=== PATIENT | male | born 1940 | race Caucasian/White ===

== ENCOUNTER 2022-10-20 08:15 | Day surgery (SDC) | payer MEDICARE, SELFPAY ==
[2022-10-20 08:46] LABS: Glucometer 118 mg/dL (74-106)
[2022-10-20 09:05] VITALS: BP 109/70; PULSE 71; TEMP 36.7; O2SAT 95
[2022-10-20 09:22] VITALS: BP 119/57; PULSE 54; RESP 20; O2SAT 94
[2022-10-20] MEDS: BUPIVACAINE HCL 0.25% PF 25 MG/10 ML VIAL INJ (09:24)
[2022-10-20 09:26] VITALS: BP 114/59; PULSE 73; RESP 20; O2SAT 93
--- NOTE | 2022-10-20 11:39 | W.PM.PROCNOT ---
Date of procedure: 10/20/22 Procedure: Left Lumbar 2, 3 & 4, 5 medial branch block Preop diagnosis includes pain secondary to lumbar spondylosis, Postop diagnosis same Under fluoroscopic guidance Solution injected: 2milliliters Marcaine 0.25% Anesthesia :none Immediate complications none Time out process compliant After informed consent obtained from the patient placed in the Prone proposition . area was prepped and draped in a sterile fashion using betadine .25 gauge spinal needle inserted over each of the above mentioned target areas . [employer] were directed towards the target under fluoroscopic guidance . after encountering each of the targets , no indication of intravascular intraneuronal or intrathecal needle tip placement. Then 0 .5 to 1 Milliliter was injected at each level. [employer] removed postoperatively. patient transferred to recovery in stable condition to be discharged home after meeting criteria Anesthesia: Local Surgeon: Aster Saleem Condition: stable Disposition: other (home)
== END 2022-10-20 09:30 | disposition home or self-care (01) ==
PROVIDERS: PCP Family Medicine; Visit Provider Anesthesiology Pain Medicine
DX: M47.816 Spondylosis without myelopathy or radiculopathy, lumbar region (principal)
CPT/HCPCS: 36415; 64493; 64494; 82948

== ENCOUNTER 2022-11-02 14:10 | Outpatient (OUT) | payer MEDICARE, SELFPAY ==
--- NOTE | 2022-11-02 14:15 | XR_ITS ---
[address] [address] Patient Name: JEREMIE GROSS MRN: [id number] date: 1940 Sex: M Assigned Patient Location: [facility] Current Patient Location: [facility] Accession/Order Number: [id number] Exam Date: 11/02/2022 14:30 Report Date: 11/03/2022 07:53 At the request of: SABINO COOPER Procedure: XR abdomen 1V EXAMINATION: XR abdomen 1V HISTORY: Abdomen pain COMPARISON: No relevant comparison available. FINDINGS: BOWEL GAS PATTERN: No abnormal dilation or deviation. CALCIFICATIONS: None significant. OTHER: Surgical clips within right upper quadrant and left pelvis. No abnormal gaseous collections. IMPRESSION: 1. No bowel obstruction, ileus, or suspicious findings. 2. Moderate stool burden. Electronically authenticated by: CLARISSA GARCIA Date: 11/03/2022 07:53
== END 2022-11-02 14:11 ==
LOC: RAD 14:12
PROVIDERS: PCP Family Medicine; Visit Provider Family Medicine
DX: R10.9 Unspecified abdominal pain (principal)
CPT/HCPCS: 74018

== ENCOUNTER 2022-11-12 09:53 | Outpatient (OUT) | payer MEDICARE, SELFPAY ==
--- NOTE | 2022-11-12 10:15 | PM.CN ---
Consult Note: HPI Data of Consult Patient: known to practice within the last 3 years Consult date: 11/12/22 Requesting Physician: MANDEEP MENARD NP Primary Care Provider: SABINO COOPER Consult Narrative Narrative: Patient is here for f/u of low back pain. Pain 05/26 today.. He had a second lumbar MBB left L2, 3, 4, 5 done on 10/20/22 . He received 90% relief of pain with increased fx for several hours after procedure. No new sensorimotor sx or bowel or bladder issues. Medication regimen is controlling pain and assisting patient with ability to perform ADLs. He would like to proceed with RFA of same area. TEREZA 20 cc:: CC: MANDEEP MENARD NP Review of Systems ROS Status of ROS 10 or more systems reviewed and unremarkable except as noted in history and below Musculoskeletal Reports: back pain PFSH PFSH Medical History Surgical History Social History Smoking status: Former smoker Meds Home Medications and Allergies Home Medications Medication Instructions Recorded Confirmed Type [place]-3 10/14/22 History amlodipine 5 mg tablet 5 mg PO QDAY 10/14/22 10/20/22 History aspirin 81 mg tablet,delayed 81 mg PO QDAY 10/14/22 10/20/22 History release (Adult Low Dose Aspirin) butalbital 50 mg-acetaminophen 300 1 cap PO Q4H PRN pain 10/14/22 10/20/22 History mg-caffeine 40 mg-codeine 30 mg cap clopidogrel 75 mg tablet (Plavix) 75 mg PO QDAY 10/14/22 10/20/22 History diphenhydramine 25 1 tab PO ONCE 10/14/22 10/20/22 History mg-acetaminophen 500 mg tablet (Tylenol PM Extra Strength) dorzolamide (PF) 2 % (PF) eye drops 1 drp ophthalmic (eye) TID 10/14/22 10/20/22 History fluticasone propionate 50 1 spray intranasal QDAY PRN nasal 10/14/22 10/20/22 History mcg/actuation nasal congestion spray,suspension (24 Hour Allergy Relief) furosemide 20 mg tablet (Lasix) 20 mg PO QDAY 10/14/22 10/20/22 History irbesartan 300 mg tablet (Avapro) 300 mg PO QDAY 10/14/22 10/20/22 History isosorbide mononitrate 30 mg PO BID 10/14/22 10/20/22 History latanoprost 0.005 % eye drops 1 drp ophthalmic (eye) QDAY 10/14/22 10/20/22 History loperamide 2 mg capsule 2 mg PO Q2H PRN loose stool 10/14/22 10/20/22 History (Anti-Diarrheal (loperamide)) magnesium glycinate-mag oxide See Rx Instructions .Route .COMPLEX 10/14/22 10/20/22 History metformin 500 mg tablet 500 mg PO BID 10/14/22 10/20/22 History multivitamin (Daily Multi-Vitamin 1 tab PO QDAY 10/14/22 10/20/22 History tablet) omeprazole 40 mg capsule,delayed 40 mg PO QDAY 10/14/22 10/20/22 History release rosuvastatin 10 mg tablet (Crestor) 10 mg PO QDAY 10/14/22 10/20/22 History sotalol 40 mg PO BID 10/14/22 10/20/22 History tizanidine 4 mg tablet 4 mg PO ONCE 10/14/22 10/20/22 History Allergies Allergy/AdvReac Type Severity Reaction Status Date / Time adhesive Allergy Mild Verified 10/14/22 15:06 niacin Allergy Mild Verified 10/14/22 15:06 [From Niaspan Extended-Release] Exam Constitutional Documenting provider has reviewed patient's vital signs: yes Common normals: no apparent distress, average body habitus, oriented x3, healthy appearing, alert and well nourished General appearance: cooperative, comfortable and well developed Orientation/consciousness: Yes awake, Yes oriented to person, Yes oriented to place and Yes oriented to time [place] Common normals: normocephalic and moist oral mucous membranes Respiratory Common normals: normal respiratory effort, no retractions and no use of accessory muscles Effort & inspection: able to speak in complete sentences and symmetric chest movement Back & Pelvis Lumbar spine/lower back: normal to inspection, ROM limited, pain with ROM and straight leg raise negative bilaterally Other: facet loading slightly positive bilat lumbar area. no radicular sx Extremity Common normals: normal to inspection, full ROM, normal capillary refill and no pedal edema Other: muscle strength 5/5 bilat with intact sensation bilat LE Assessment and Plan Assessment and Plan (1) Lumbar spondylosis: (2) Muscle spasm: Plan schedule for thermal RFA left lumbar L2/3, L4/5 under fluoroscopy
== END 2022-11-12 09:54 | disposition home or self-care (01) ==
PROVIDERS: PCP Family Medicine; Visit Provider Nurse Practitioner
DX: M47.816 Spondylosis without myelopathy or radiculopathy, lumbar region (principal); M62.838 Other muscle spasm
CPT/HCPCS: G0463

== ENCOUNTER 2022-11-25 09:27 | Outpatient (OUT) | payer MEDICARE, SELFPAY ==
[2022-11-25 10:01] LABS: Basophils Absolute Auto 0.1 10^3/uL (0.0-0.1); Basophils Percent Auto 0.9 % (0.2-2.0); Eosinophils Absolute Auto 0.3 10^3/uL (0.0-0.7); Eosinophils Percent Auto 3.3 % (0.9-7.0); Estimated Average Glucose 134 mg/dL; Glycohemoglobin A1C 6.3 % (4.5-6.2); Hematocrit 42.5 % (42.0-54.0); Hemoglobin 13.6 g/dL (14.0-18.0); Immature Granulocytes Abs Auto 0.11 10^3/uL (0.00-0.03); Immature Granulocytes Pct Auto 1.2 % (0.0-0.5); Lymphocytes Absolute Auto 2.4 10^3/uL (1.2-3.8); Mean Corpuscular Hemoglobin 30.6 pg (25.9-34.0); Mean Corpuscular Volume 95.5 fL (80.0-94.0); Mean Platelet Volume 10.7 fL (9.5-13.5); Monocytes Absolute Auto 0.7 10^3/uL (0.3-0.8); Monocytes Percent Auto 8.3 % (1.7-12.0); Neutrophils Absolute Auto 5.2 10^3/uL (1.4-6.5); Neutrophils Percent Auto 59.3 % (43.0-75.0); Platelet Count 219 10^3/uL (150-450); Red Blood Count 4.45 10^6/uL (4.70-6.10); Red Cell Distribution Width 14.1 % (11.0-15.0); White Blood Count 8.8 10^3/uL (4.0-11.0)
[2022-11-25 10:12] LABS: Alanine Aminotransferase 24 U/L (16-63); Albumin Globulin Ratio 1.1; Albumin Level 3.8 g/dL (3.4-5.0); Alkaline Phosphatase 81 U/L (46-116); Anion Gap 10.4; Aspartate Amino Transferase 15 U/L (15-37); BUN Creatinine Ratio 13.3; Bilirubin Total 0.3 mg/dL (0.2-1.0); Calcium 9.4 mg/dL (8.5-10.1); Carbon Dioxide 31.1 mmol/L (21.0-32.0); Chloride 105 mmol/L (98-107); Chol HDL Ratio 4.2; Cholesterol 122 mg/dL (<=200); Estimated GFR (African America >60 (>=60); Estimated GFR (Non-African Ame >60 (>=60); Globulin 3.6 g/dL; Glucose 123 mg/dL (74-106); HDL Cholesterol 29 mg/dL (40-60); Potassium 4.5 mmol/L (3.5-5.1); Sodium 142 mmol/L (136-145); Total Protein 7.4 g/dL (6.4-8.2); Triglycerides 229 mg/dL (<=150); VLDL CHOLESTEROL 45.8 mg/dL
== END 2022-11-25 09:28 | disposition home or self-care (01) ==
LOC: LAB 09:29
PROVIDERS: PCP Family Medicine; Visit Provider Family Medicine
DX: I10 Essential (primary) hypertension (principal); E11.9 Type 2 diabetes mellitus without complications; E78.5 Hyperlipidemia, unspecified
CPT/HCPCS: 36415; 80053; 80061; 83036; 85025

== ENCOUNTER 2022-12-29 09:11 | Day surgery (SDC) | payer MEDICARE, SELFPAY ==
[2022-12-29 09:24] VITALS: BP 150/74; PULSE 65; RESP 18; TEMP 37; O2SAT 97
[2022-12-29 09:25] LABS: Glucometer 105 mg/dL (74-106)
[2022-12-29] MEDS: 0.9 % SODIUM CHLORIDE 500 ML IV (09:28)
[2022-12-29] MEDS: LIDOCAINE HCL 2% 400 MG/20 ML MDV 8 ML INJ (10:35)
[2022-12-29] MEDS: BUPIVACAINE HCL 0.25% PF 25 MG/10 ML VIAL 4 ML INJ (10:35)
[2022-12-29] MEDS: METHYLPREDNISOLONE ACETATE 40 MG/ML VIAL INJ (10:36)
[2022-12-29 10:44] VITALS: BP 100/45; PULSE 61; RESP 14; TEMP 36.3; O2SAT 93
[2022-12-29 10:45] VITALS: BP 97/60; PULSE 56; RESP 16; TEMP 36.3; O2SAT 95
--- NOTE | 2022-12-29 11:06 | PC.NURSE ---
1145 Pacemaker interrogation completed, [employer] rep [place] contacted and stated transmission was successful and no problems were noted on interrogation.
--- NOTE | 2022-12-29 11:09 | W.PM.PROCNOT ---
Date of procedure: 12/29/22 Pre-op diagnosis: lumbar spondylosis Post-op diagnosis: same as pre-op Procedure: Left lumbar 2,3 &4,5 Radiofrequency ablation Under fluoroscopic guidance Rhizotomy was created using radio frequency ablation at 80?C for 90 seconds 1 to 2 lesions created at each site. Post lesioning injection of 2 mL each of 0.25% Marcaine and 2% lidocaine with Depo-Medrol 40mg. 0.5 to 1 mL injected at each site IV in place yes If Intravenous fluids: NS at KVO Anesthesia local 2% lidocaine for Anesthesia Other: MAC Timeout process compliant After informed consent obtained.Patient brought to the procedure room placed in the prone position skin overlying the area was prepped and draped in a sterile fashion using betadine. 25 gauge needle was used to create a skin wheal over each of the targeted areas utilizing 2% lidocaine. A rhizotomy needle with a 10 mm active tip was inserted over each of the anesthetized areas and directed towards each of the medial branches accomplished under fluoroscopic guidance. after encountering the same we had positive sensory stimulation, negative motor stimulation was noted. lesions were then created. Post lesioning, steroid solution was injected needles removed. Patient was transferred to recovery room in stable condition to be discharged home after meeting criteria. Anesthesia: MAC Surgeon: Aster Saleem Condition: stable
== END 2022-12-29 11:06 | disposition home or self-care (01) ==
LOC: SURGOUT 09:12
PROVIDERS: PCP Family Medicine; Visit Provider Anesthesiology Pain Medicine
DX: M47.816 Spondylosis without myelopathy or radiculopathy, lumbar region (principal)
CPT/HCPCS: 36415; 64635; 64636; 82948; J1030; J2704

== ENCOUNTER 2023-01-28 12:36 | Outpatient (OUT) | payer MEDICARE, SELFPAY ==
--- NOTE | 2023-01-28 12:40 | P.CN_ITS ---
Consult Note: HPI Data of Consult Patient: known to practice within the last 3 years Requesting Physician: Alexandra Trevizo NP Primary Care Provider: SABINO COOPER Consult Narrative Reason for consult: Procedure f/u Narrative: Jair Bennett a pleasant 82 year old male presents for evlauation of chronic low back pain. Recently underwent Left lumbar 2,3 &4,5 Radiofrequency ablation with >50-75% ongoing relief. Pain is now in right lower back and neck. Today rating pain 2-3/10 hx of cervical fusion at c3/4/5 cc:: CC: Alexandra Trevizo NP Review of Systems ROS Status of ROS 10 or more systems reviewed and unremarkable except as noted in history and below Musculoskeletal Reports: back pain and neck pain PFSH PFSH Medical History Surgical History Social History Smoking status: Former smoker Meds Home Medications and Allergies Home Medications Medication Instructions Recorded Confirmed Type [place]-3 10/14/22 History amlodipine 5 mg tablet 5 mg PO QDAY 10/14/22 12/29/22 History aspirin 81 mg tablet,delayed 81 mg PO QDAY 10/14/22 12/29/22 History release (Adult Low Dose Aspirin) butalbital 50 mg-acetaminophen 300 1 cap PO Q4H PRN pain 10/14/22 12/29/22 History mg-caffeine 40 mg-codeine 30 mg cap clopidogrel 75 mg tablet (Plavix) 75 mg PO QDAY 10/14/22 12/29/22 History diphenhydramine 25 1 tab PO ONCE 10/14/22 12/29/22 History mg-acetaminophen 500 mg tablet (Tylenol PM Extra Strength) dorzolamide (PF) 2 % (PF) eye drops 1 drp ophthalmic (eye) TID 10/14/22 12/29/22 History fluticasone propionate 50 1 spray intranasal QDAY PRN nasal 10/14/22 10/20/22 History mcg/actuation nasal congestion spray,suspension (24 Hour Allergy Relief) furosemide 20 mg tablet (Lasix) 20 mg PO QDAY 10/14/22 12/29/22 History irbesartan 300 mg tablet (Avapro) 300 mg PO QDAY 10/14/22 12/29/22 History isosorbide mononitrate 30 mg PO BID 10/14/22 12/29/22 History latanoprost 0.005 % eye drops 1 drp ophthalmic (eye) QDAY 10/14/22 12/29/22 History loperamide 2 mg capsule 2 mg PO Q2H PRN loose stool 10/14/22 12/29/22 History (Anti-Diarrheal (loperamide)) metformin 500 mg tablet 500 mg PO BID 10/14/22 12/29/22 History multivitamin (Daily Multi-Vitamin 1 tab PO QDAY 10/14/22 12/29/22 History tablet) omeprazole 40 mg capsule,delayed 40 mg PO QDAY 10/14/22 12/29/22 History release rosuvastatin 10 mg tablet (Crestor) 10 mg PO QDAY 10/14/22 12/29/22 History sotalol 40 mg PO BID 10/14/22 12/29/22 History tizanidine 4 mg tablet 4 mg PO ONCE 10/14/22 12/29/22 History Allergies Allergy/AdvReac Type Severity Reaction Status Date / Time adhesive Allergy Mild Verified 12/29/22 09:20 niacin Allergy Mild Verified 12/29/22 09:20 [From Niaspan Extended-Release] Exam Constitutional Documenting provider has reviewed patient's vital signs: yes Common normals: no apparent distress, oriented x3, healthy appearing, alert and well nourished General appearance: cooperative [facility] Common normals: normocephalic, hearing grossly normal bilaterally and moist oral mucous membranes Head and scalp: normocephalic Eye Common normals: PERRL Pupil: PERRL Neck & C-Spine General: normal visual inspection Cervical spine: cervical ROM abnormal and pain with cervical ROM Chest Common normals: inspection of chest normal Respiratory Common normals: normal respiratory effort, no retractions and no use of accessory muscles Back & Pelvis Lumbar spine/lower back: ROM limited and pain with ROM Other: predominately axial low back pain on right side over l2-l5 without radiculopathy Extremity Common normals: normal to inspection and full ROM Neuro Common normals: oriented x3, CN's II-XII intact bilaterally, moves all extremities, no focal motor deficits, no sensory deficits noted and deep tendon reflexes 2+ bilaterally Sensorium/orientation: alert Gait (neuro): antalgic Motor exam: strength 5/5 throughout and no movement abnormalities noted Psych Common normals: mental status grossly normal, thought process normal, cooperative, affect normal, speech normal and activity/motor behavior normal Speech: normal speech Thought process: normal thought process Results Additional Findings Additional findings: I have checked an [place]AR[place] report on this patient today and there are no aberrancies noted in the prescribing history.?? A drug screen was completed and reviewed within the last year, and if there has not been a drug screen completed we ordered one today to monitor higher risk, state monitored pain medication use. As part of providing excellent, safe, comprehensive care, the following was completed at our patient's visit: 1. A medication reconciliation and review to ensure accurate knowledge of current/active medications, including asking our patients to inform us about any [id number] medications or herbal remedies/nutritional supplements/alternative remedies. 2. A review to specifically ensure our patients have had annual screening for: elevated body mass index (BMI), tobacco use, screening for depression, and screening for unhealthy alcohol use. When screening is concerning, patients are provided with education and the specific recommendation to discuss the concerning health issue and treatment options with their primary care provider. Assessment and Plan Assessment and Plan (1) Lumbar spondylosis: Assessment and Plan: The patient has had over 3 months of moderate to severe low back pain with functional impairment and inadequate response to conservative care including NSAIDS (unless there are contraindication such as concurrent blood thinners), multiple oral or topical pain medications, and home exercise program/physical therapy.? Patient has completed >6 weeks of guided home exercise program and/or formal physical therapy program without relief of their symptoms.? I have reviewed the imaging of the lumbar spine and no red flags were identified.? The imaging reveals radiographic findings consistent with lumbar facet arthropathy? We discussed the risks and benefits of the procedure with the patient, and we are NOT planning on using sedation as outlined in the guidelines from Medicare unless there is a documented reason that sedation would be strongly recommended.?? ?The procedure will be completed with fluoroscopic guidance.? (2) Muscle spasm: (3) Hx of half-way use of blood thinners: (4) Failed cervical fusion: Plan start topical cream from transdermal therapeutics to neck TID-QID proceed with MBB to right L2/3 4/5 under fluoroscopy, has previously benefitted from thermal RFAs at this level continue current medication regimen tolerating well without side effects follow up 1 week after injection
== END 2023-01-28 12:37 | disposition home or self-care (01) ==
LOC: PM 12:36
PROVIDERS: PCP Family Medicine; Visit Provider Nurse Practitioner
DX: M47.816 Spondylosis without myelopathy or radiculopathy, lumbar region (principal); M62.838 Other muscle spasm
CPT/HCPCS: G0463

== ENCOUNTER 2023-02-22 16:10 | Outpatient (OUT) | payer MEDICARE, SELFPAY ==
--- NOTE | 2023-02-22 16:21 | US_ITS ---
The [address] [address] Patient Name: JEREMIE GROSS MRN: [id number] date: 1940 Sex: M Assigned Patient Location: [facility] Current Patient Location: Accession/Order Number: [id number] Exam Date: 02/22/2023 16:22 Report Date: 02/23/2023 07:49 At the request of: TERRANCE PIZARRO Procedure: US soft tissue head and neck EXAM: US soft tissue head and neck HISTORY: LUMP ON RIGHT SIDE OF NECK R22.1 COMPARISON: None. TECHNIQUE: Grayscale and color ultrasound FINDINGS: Identified in the right neck correspond to the patient's palpable mass are 3 focal heterogeneous complex well-circumscribed hypoechogenic masses without definitive internal vascularity. These lesions are round in shape and measuring 1.4 x 1.3 x 1.2 cm, 0.6 x 0.6 x 0.3 cm and 0.7 x 0.6 x 0.6 cm. US/US soft tissue head and neck IMPRESSION: 3 focal round hypoechoic heterogeneous masses correspond to the patient's palpable abnormality. These are of unknown etiology. The differential diagnosis would include atypical lymph nodes versus abscess with malignancy considered less likely in light of the patient's pain and rapid onset. Electronically authenticated by: ERWIN FALCON Date: 02/23/2023 07:49
== END 2023-02-22 16:11 | disposition home or self-care (01) ==
PROVIDERS: PCP Family Medicine; Visit Provider Nurse Practitioner
DX: R22.1 Localized swelling, mass and lump, neck (principal)
CPT/HCPCS: 76536

== ENCOUNTER 2023-04-20 09:09 | Day surgery (SDC) | payer MEDICARE, SELFPAY ==
[2023-04-20 09:56] VITALS: BP 106/64; PULSE 77; RESP 16; TEMP 36.4; O2SAT 95
[2023-04-20 10:00] LABS: Glucometer 148 mg/dL (74-106)
[2023-04-20 10:55] VITALS: BP 110/60; BP 115/57; PULSE 60; PULSE 65; RESP 18; O2SAT 93; O2SAT 95
[2023-04-20] MEDS: BUPIVACAINE HCL 0.25% PF 25 MG/10 ML VIAL 3.5 ML INJ (10:57)
--- NOTE | 2023-04-20 11:24 | P.ON_ITS ---
Date of procedure: 04/20/23 Pre-op diagnosis: Lumbar spondylosis Post-op diagnosis: same as pre-op Procedure: Right Lumbar 2/3, 4/5 medial branch block Under fluoroscopic guidance Solution injected: 2millilitersMarcaine 0.25% Anesthesia :none Immediate complications none Time out process compliant After informed consent obtained from the patient placed in the Prone proposition . area was prepped and draped in a sterile fashion using Cloraprep .25 gauge spinal needle inserted over each of the above mentioned target areas . [place] were directed towards the target under fluoroscopic guidance . after encountering each of the targets , no indication of intravascular intraneuronal or intrathecal needle tip placement. Then 0 .5 to 1 Milliliter was injected at each level. [place] removed postoperatively. patient transferred to recovery in stable condition to be discharged home after meeting criteria Anesthesia: Local Surgeon: Aster Saleem Condition: stable
== END 2023-04-20 11:03 | disposition home or self-care (01) ==
LOC: SURGOUT 09:10
PROVIDERS: PCP Family Medicine; Visit Provider Anesthesiology Pain Medicine
DX: M47.816 Spondylosis without myelopathy or radiculopathy, lumbar region (principal); Z79.84 Long term (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 of oral hypoglycemic drugs
CPT/HCPCS: 36415; 64493; 64494; 82948

== ENCOUNTER 2023-05-20 12:11 | Outpatient (OUT) | payer MEDICARE, SELFPAY ==
--- OUTSIDE RECORDS SUMMARY | 2023-05-20 12:22 | XMS_ITS | CCD ---
Author Name Unknown Address [address] [place] [address] Organization [facility] Care Team Providers Care 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 Name Role Phone ELTAHAWY, EHAB A Admitting Unavailable ELTAHAWY, EHAB A Attending Unavailable SABINO COOPER Referring Unavailable SABINO COOPER Primary Care Unavailable Param Cosme Attending Provider [phone] Sabino Cooper Primary Care Provider Param Cosme Attending Provider Sabino Cooper Primary Care Provider Leti Garcia Unavailable MG [place] Primary Care Physician [phone] KAT Westfall Attending Provider MD Mg [place] Primary Care Provider KAT Westfall Attending Provider MD Mg [place] Primary Care Provider MD Erwin Salazar Attending Provider Erwin Salazar Unavailable MARCE Hardy Attending Provider KAT Westfall Other Provider Sabino Cooper Primary Care Physician Griselda Pennington Unavailable ALANNA HARDY Admitting Unavailable ALANNA HARDY Attending Unavailable LITA, DR MG Omalley Primary Care Unavailable WEST, DR ERWIN Bell Consulting Unavailable ALANNA HARDY Consulting Unavailable LITA, DR MG Omalley Consulting Unavailable LITA, DR MG Omalley Attending Unavailable LITA, DR MG Omalley Admitting Unavailable LITA, DR MG Omalley Primary Care Unavailable LAKSHMIPATHY ., NARENDRANATH Consulting Lisset vailable LAKSHMIPATHY ., NARENDRANATH Attending Lisset vailable LAKSHMIPATHY ., NARENDRANATH Admitting Lisset vailable NADERER, DR MG Omalley Primary Care Unavailable STANFORD, DIEGO Attending Unavailable STANFORD, DIEGO Admitting Unavailable STANFORD, DIEGO Consulting Unavailable NADERESon, DR MG Omalley Primary Care Unavailable ABDON, SUSANA Attending Unavailable ABDON, SUSANA Admitting Unavailable ZIEBER, DR CLARISSA Cline Consulting Unavailable NADERER, DR MG Omalley Primary Care Unavailable ABDON, SUSANA Consulting Unavailable NADERESon, DR MG Omalley Primary Care Unavailable MARKER ., DR ODELL Consulting Unavailable MARKER ., DR ODELL Admitting Unavailable MARKER ., DR ODELL Attending Unavailable HIGHTOWER, GIN Consulting Unavailable ABDON, SUSANA Attending Unavailable ABDON, SUSANA Admitting Unavailable NADSILVIA, DR MG Omalley Primary Care Unavailable LAZO ., SONNY Consulting Unavailable NADERESon, DR MG Omalley Primary Care Unavailable CLANCY ., DR AMANDA Thapa Attending Unavailable CLANCY ., DR AMANDA Thapa Admitting Unavailable CLANCY ., DR AMANDA Thapa Admitting Unavailable LAZO ., SONNY Consulting Unavailable CLANCY ., DR AMANDA Thapa Attending Unavailable NADERESon, DR MG Omalley Primary Care Unavailable LAKSHMIPATHY ., NARENDRANATH Consulting Lisset vailable LAKSHMIPATHY ., NARENDKENDELLATH Attending Lisset vailable LAKSHMIPATHY ., NARENDRANATH Admitting Lisset vailable NADSILVIA, DR MG Omalley Primary Care Unavailable LAKSHMIPATHY ., NARENDMARIANNA Attending Lisset vailable NADERER, DR MG Omalley Primary Care Unavailable HALKER .MANDEEP Consulting Unavailable LAKSHMIPATHY ., NARENDRANATH Admitting Lisset vailable LAKSHMIPATHY ., NARENDRANATH Consulting Lisset vailable LAKSHMIPATHY ., NARENDRANATH Attending Lisset vailable LAKSHMIPATHY ., NARENDRANATH Admitting Lisset vailable SABINO COOPER Primary Care Unavailable LAZO ., SONNY Consulting Unavailable CLANCY ., DR AMANDA Thapa Admitting Unavailable CLANCY ., DR AMANDA Thapa Attending Unavailable NADERESon, DR MG Omalley Primary Care Unavailable ALANNA HARDY Admitting Unavailable HIGHLANDER, ALANNA Araiza Attending Unavailable NADERER, DR MG Omalley Primary Care Unavailable HIGHLANDER, ALANNA Araiza Attending Unavailable HIGHLELLA, ALANNA Araiza Admitting Unavailable NADERER, DR MG Omalley Primary Care Unavailable MISC, DR BECKER Attending Unavailable FAWWAD, SHAIKH Jane Consulting Unavailable MISC, DR BECKER Admitting Unavailable NADERER, DR MG Omalley Primary Care Unavailable ALSEN, DR ERWIN Bell Consulting Unavailable ELTAHAWY, DR CAO Admitting Unavailable ELTAHAWY, DR CAO Attending Unavailable NADERER, DR MG Omalley Primary Care Unavailable ELTAHAWY, DR CAO Consulting Unavailable REINECK, DR EDY Da Silva Admitting Unavailabl e NADERER, DR GM mOalley Primary Care Unavailable REINECK, DR EDY Da Silva Consulting Unavailabl e REINECK, DR EDY Da Silva Attending Unavailabl e NEFCY, ALANNA Consulting Unavailable BRITTONIFEOMA Admitting Unavailable NADERER, DR MG Omalley Primary Care Unavailable BRITTONIFEOMA ANNE Attending Unavailable HIGHLANDER, ALANNA Araiza Attending Unavailable HIGHLELLA, ALANNA Araiza Admitting Unavailable NADERER, DR MG Omalley Primary Care Unavailable Boy, DAISHA Gisele Attending Provider MD Sabino Cooper Primary Care Provider Brunson, Gisele Unavailable MD Erwin Salazar Attending Provider MD Sabino Cooper Primary Care Provider [phone] MD Inez Henderson Attending Provider Esme Brunson NP Gisele Attending Provider FABIO Ruby Attending Provider [phone] Erwin Salazar Admitting Unavailable Erwin Salazar Attending Unavailable Mg [place] Primary Care Unavailable Missy Westfall Consulting Unavailable Alanna Hardy Admitting Unavailable HighlAlanna richardson Attending Unavailable Mg [place] Primary Care Unavailable Lowe, Missy Admitting Unavailable Lowe, Missy Attending Unavailable Lita, Mg Primary Care Unavailable Sabino Cooper Primary Care Unavailable Brunson, Gisele Admitting Unavailable Brunson, Gisele Attending Unavailable Sabino Cooper Primary Care Unavailable Erwin Salazar Admitting Unavailable Erwin Salazar Attending Unavailable Inez Henderson Admitting Unavailable Inez Henderson Attending Unavailable Sabino Cooper Primary Care Unavailable Gisele Brunson Admitting Unavailable Gisele Brunson Attending Unavailable Sabino Cooper Primary Care Unavailable Sabino Cooper Primary Care Unavailable Flori, Anjali Ifeoma Admitting Unavailable Flori, Anjali Ifeoma Attending Unavailable Missy Westfall Admitting Unavailable Missy Westfall Attending Unavailable Mg [place] Primary Care Unavailable Flori AIRWAY CONTROLLER, Anjali Unavailable JOSE R ALEXANDER Attending Unavailable DANIEL PATEL Referring Unavailable MARGARET ARELLANO Attending Unavailable DANIEL PATEL Referring Unavailable MD Sabino Cooper Attending Unavailable MD Sabino Cooper Attending Unavailable MD Sabino Cooper Primary Care Unavailable Dequan GALICIA Attending Unavailable Flori, Anjali A Attending Unavailable Flori, Anjali A Attending Unavailable SRAVANI Roque Attending Unavailable MD Sabino Cooper Attending Unavailable MD Sabino Cooper Attending Unavailable Gordy Powers Admitting Unavailable Gordy Powers Attending Unavailable Gordy Powers Referring Unavailable MD Sabino Cooper Attending Unavailable MD Sabino Cooper Attending Unavailable MD Sabino Cooper Attending Unavailable Flori, Anjali A Referring Unavailable Flori, Anjali A Admitting Unavailable Flori, Anjali A Attending Unavailable Flori, Anjali A Admitting Unavailable Flori, Anjali A Attending Unavailable MD Sabino Cooper Admitting Unavailable MD Sabino Cooper Attending Unavailable Gordy Sánchez Attending Unavailable Dequan GALICIA Admitting Unavailable Dequan GALICIA Attending Unavailable Dequan GALICIA Referring Unavailable MD Sabino Cooper Referring Unavailable Flori, Anjali A Attending Unavailable Flori, Anjali A Attending Unavailable Flori, Anjali A Attending Unavailable MD Sabino Cooper Attending Unavailable VAISHALI PRNIGLE Attending Unavailable Unavailable Unavailable Unavailable Allergies Allergy Classification Reported Allergen(s) Allergy Type Date of Onset Reaction(s) Facility (3 sources) Desonide Drug Allergy 0 [facility] Repository (1 source) Niacin Drug Allergy 0 [facility] Repository (5 sources) Adhesive agent Drug allergy rash [employer] Other (12 sources) Niacin; Translations: [niacin] Drug Allergy 9 hives, Itching (finding), Itching, Unknown [facility] [place] (9 sources) Adhesive bandage; Translations: [Adhesive Bandage] Allergy to substance Eruption of skin (disorder) [facility] [place] (4 sources) Niacin Drug Allergy hives [facility] [employer] Other (2 sources) Niaspan Starter Pack Drug allergy (disorder) 8 [facility] Repository (3 sources) Adhesive Tape-Silicones; Translations: [ADHESIVE TAPE-SILICONES] Drug Allergy [address] [facility] (1 source) Niacin; Translations: [Niaspan ER] Drug Allergy [facility] Repository Medications Current Medications Medication Drug Class(es) Dates Sig (Normalized) Sig (Original) Albuterol (Eqv-ProAir HFA) 90 mcg/inh inhalation aerosol (6 sources) Start: 11-09-2022 Albuterol (Eqv-ProAir HFA) 90 mcg/inh inhalation aerosol See Instructions, 17 gm, Refill(s) 6, USE 2 INHALATIONS BY MOUTH EVERY 6 HOURS, [facility]), 163, cm, 11/04/22 15:03:00 EDT, Height/Length Dosing, 76, kg, 11/04/22 15:03:00 EDT, Weight Dosing Start Date: 11/09/22 Status: Ordered {1 (Ascorbic Acid 7540 MG / POLYETHYLENE GLYCOL 3350 80119 MG / Potassium Chloride 1200 MG / Sodium Ascorbate 57289 MG / Sodium Chloride 3200 MG Powder for Oral Solution) / 1 (POLYETHYLENE GLYCOL 3350 800340 MG / Potassium Chloride 1000 MG / Sodium Chlori (5 sources) Osmotic Laxative, Vitamin C Start: 12-15-2022 Plenvu oral powder for reconstitution See Instructions, 1 EA, Refill(s) 0, Prior to colonoscopy., [id number], 163, cm, 12/15/22 12:03:00 EDT, Height/Length Dosing, 73.3, kg, 12/15/22 12:03:00 EDT, Weight Dosing Start Date: 12/15/22 Status: Ordered Aspir 81 (8 sources) Start: 04-24-2020 take 81 mg by mouth once daily Aspir 81 81 mg, Oral, Daily, Refills(s) 0, Prophylaxis Start Date: 04/24/20 Status: Ordered Start: 04-24-2020 take 1 mg by mouth once daily Aspir 81 mg, Oral, Daily, Refills(s) 0, Prophylaxis Start Date: 04/24/20 Status: Ordered Aspir-81 (4 sources) Aspir-81 Active azithromycin 250 mg oral tablet (3 sources) Macrolide Antimicrobial Start: 023 Azithromycin 250 MG 2 tablet on the first day, then 1 tablet daily for 4 days Orally Once a day for 5 day(s) September, Active Butalbital-Acetaminop hen (4 sources) Butalbital-Aceta minop hen Active cephalexin 250 mg oral capsule (1 source) Cephalosporin Antibacterial Start: take 1 capsule by mouth twice daily Keflex 250 mg Cap 250 mg = 1 cap(s), Oral, BID, Start 3 days before procedure, # 10 cap(s), Refills(s) 0, Pharmacy: [id number], 167, cm, 04/27/22 8:46:00 EST, Height/Length Dosing, 87.1, kg, 04/27/22 8:46:00 EST, Weight Dosing Start Date: 04/27/22 Status: Ordered cholestyramine 4 g/5 g Oral Pwdr (1 source) Start: 023 cholestyramine 4 g/5 g Oral Pwdr 1 packet(s), Oral, TID, 90 EA, Refill(s) 0, [facility] ([facility] ), 167.6, cm, 08/24/22 8:10:00 EDT, Height/Length Dosing, 83.4, kg, 08/24/22 8:10:00 EDT, Weight Dosing Start Date: 08/24/22 Status: Ordered Dicyclomine (2 sources) Anticholinergic Dicyclomine HCl Active dorzolamide (13 sources) Carbonic Anhydrase Inhibitor Start: take 1 drop(s) into the eye(s) twice daily dorzolamide ophthalmic 2% solution 1 drop(s), OPTH, BID, Refill(s) 0, each eye Start Date: 04/24/20 Status: Ordered Dorzolamide HCl 2 % Ophthalmic for 90 Active Dorzolamide HCl 2 % Ophthalmic for 90 Active Fish Oils (6 sources) Start: 11-04-2022 Shubert-3 Fish O il Oral, Daily, Refills(s) 0 Start Date: 11/04/22 Status: Ordered fluticasone 0.05 mg/inh Nasal [place] (1 source) Start: 04-24-2020 fluticasone 0. 05 mg/inh Nasal [place] Daily, Refill(s) 0 Start Date: 04/24/20 Status: Ordered gabapentin 600 mg oral tablet (15 sources) Anti-epileptic Agent Start: 03-09-2023 take 1 tablet by mouth three times daily gabapentin 600 mg Tab 600 mg, Oral, TID, # 270 EA, Refills(s) 0, Pharmacy: [facility], 163, cm, 02/25/23 13:29:00 EDT, Height/Length Dosing, 78.8, kg, 02/25/23 13:29:00 EDT, Weight Dosing Start Date: 03/09/23 Status: Ordered Start: 04-24-2020 take 1 tablet by peggy th three times daily gabapentin 600 mg Tab 600 mg, Oral, TID, # 270 EA, Refills(s) 0, Pharmacy: [facility] ([facility] ), 167.6, cm, 08/24/22 8:10:00 EDT, Height/Length Dosing, 83.4, kg, 08/24/22 8:10:00 EDT, Weight Dosing Start Date: 08/24/22 Status: Ordered Gabapentin 300 M G Oral for 90 Active Comment on above: Take 1 tablet by peggy th. latanoprost (15 sources) Prostaglandin Analog Start: 04-24-2020 latanoprost ophthalmic qPM, Refill(s) 0 Start Date: 04/24/20 Status: Ordered take 1 drop(s) into the eye(s) once daily at bedtime latanoprost (XALATAN) 0.005 % ophthalmic solution 1 Drop daily at bedtime. 0 Active Latanoprost 0.00 5 % Ophthalmic for 90 Active Comment on above: 1 Drop daily at bedt olivia. Magnesium (4 sources) Magnesium Active metFORMIN hydrochloride 500 mg oral tablet (15 sources) Biguanide Start: 04-24-2020 take 1 mg by mouth twice daily metformin 500 mg ER Tab mg tab(s), Oral, BID, Refills(s) 0, High blood sugar Start Date: 04/24/20 Status: Ordered metFORMIN HCl ER 500 MG Oral for 90 Active Comment on above: Take 500 mg by mouth . methylPREDNISolone 4 mg oral tablet (3 sources) Corticosteroid Start: 023 Medrol 4 MG as directed Orally as directed for 6 days September, Active Multivitamin preparation (4 sources) Multivitamin Act rosa Multivitamin, Therapeutic w/ Minerals (8 sources) Start: 020 Multivitamin, Therapeutic w/ Minerals Oral, Daily, Refill(s) 0, Prophylaxis Start Date: 04/24/20 Status: Ordered Shubert 3 (4 sources) Shubert 3 Active pantoprazole 20 mg delayed release oral tablet (6 sources) Proton Pump Inhibitor Start: 021 take 1 mg by mouth once daily Pantoprazole [address] Tab mg tab(s), Oral, Daily, Refills(s) 0 Start Date: 10/31/20 Status: Ordered Pantoprazole Sod ium Not-Taking Pantoprazole Sod ium Active Psyllium (2 sources) Start: 03-10-2023 Metamucil Refills(s) 0 Start Date: 03/10/23 Status: Ordered tiZANidine 4 mg oral tablet (14 sources) Central alpha-2 Adrenergic Agonist Start: 02-21-2021 take 1 tablet by mouth once daily tiZANidine 4 mg Tab 4 mg = 1 tab(s), Oral, Daily, Refills(s) 0 Start Date: 02/21/21 Status: Ordered tiZANidine HCl ( ZANAFLEX) 4 mg capsule Take 4 mg by mouth. 0 Active tiZANidine HCl A ctive Comment on above: Take 4 mg by mouth. traZODone hydrochloride 50 mg oral tablet (1 source) Serotonin Reuptake Inhibitor Start: 1 take 1 mg by mouth once daily at bedtime traZODONE 50 mg Tab mg tab(s), Oral, Once a day (at bedtime), Refills(s) 0 Start Date: 10/31/20 Status: Ordered Tylenol PM Extra Strength (4 sources) Tylenol PM Extra Strength Active Completed/Discontinued Medications Medication Drug Class(es) Dates Sig (Normalized) Sig (Original) acetaminophen 325 mg / butalbital 50 mg / caffeine 40 mg oral tablet (7 sources) Barbiturate, Central Nervous System Stimulant, Methylxanthine Start: 12-15-2022 take 1 tablet by mouth every four hours as needed acetaminophen 325 mg-caffeine 40 mg-butalbital 50 mg (FIORICET) per tablet Take 1 tablet by mouth every 4 hours as needed. 0 12/15/2022 Active Start: 12-15-2022 APAP/butalbita l/caffeine 325 mg-50 mg-40 mg Tab Refill(s) 0 Start Date: 12/15/22 Status: Ordered Comment on above: Take 1 tablet by peggy th every 4 hours as needed. amLODIPine 5 mg oral tablet (15 sources) Dihydropyridine Calcium Channel Gabo Start: 04-24-20 amLODIPine (NORVASC) 5 mg tablet Take 5 mg by mouth. 0 04/24/2020 Active Comment on above: Take 5 mg by mouth. aspirin 81 mg delayed release oral tablet (2 sources) Platelet Aggregation Inhibitor, Nonsteroidal Anti-inflammatory Drug aspirin, enteric coated (ASPIRIN, ENTERIC COATED) 81 mg EC tablet Take 81 mg by mouth. 0 Active Comment on above: Take 81 mg by mouth. clopidogrel 75 mg oral tablet (15 sources) P2Y12 Platelet Inhibitor Start: 04-24-20 clopidogrel (PLAVIX) 75 mg tablet dexamethasone 6 mg oral tablet (5 sources) Corticosteroid Start: 11-30-19 take 1 tablet by mouth every twenty-four hours dexAMETHasone 6 MG 1 tablet Orally Once a day for 5 day(s) Nov, Not-Taking Docusate (4 sources) Docusate Sodium Not-Taking Docusate Sodium Active fluticasone propionate 0.05 mg/actuat metered dose nasal spray (16 sources) Corticosteroid Start: 08-24-2022 fluticasone (F LONASE) 50 mcg/actuation nasal spray 1 [place]. 0 08/24/2022 Active Start: 08-24-2022 take 1 spray(s) nasa l route twice daily Flonase 0.05 mg/inh [place] 1 spray(s), Nasal, BID, 16 gram, Refill(s) 0, each nostril, [facility] ([facility] ), 167.6, cm, 08/24/22 8:10:00 EDT, Height/Length Dosing, 83.4, kg, 08/24/22 8:10:00 EDT, Weight Dosing Start Date: 08/24/22 Status: Ordered Start: 04-24-2020 take 50 ug by inhala tion twice daily fluticasone propionate 50 mcg, Inhalation, BID, Refills(s) 0 Start Date: 04/24/20 Status: Ordered Fluticasone Prop ionate 50 MCG/ACT Nasal for 30 Active Comment on above: 1 [place]. furosemide 20 mg oral tablet (15 sources) Loop Diuretic Start: 04-24-2020 furosemide (LASIX) 20 mg tablet Take 20 mg by mouth. 0 04/24/2020 Active Furosemide Activ e Comment on above: Take 20 mg by mouth. glimepiride 2 mg oral tablet (2 sources) Sulfonylurea Start: 01-19-2019 glimepiride (AMARYL) 2 mg tablet Take 2 mg by mouth. 0 01/19/2019 Active Comment on above: Take 2 mg by mouth. irbesartan 300 mg oral tablet (15 sources) Angiotensin 2 Receptor Gabo Start: 04-24-2020 irbesartan (AVAPRO) 300 mg tablet Take 300 mg by mouth. 0 04/24/2020 Active Comment on above: Take 300 mg by mouth . 24 hr isosorbide mononitrate 30 mg extended release oral tablet (15 sources) Nitrate Vasodilator Start: 04-24-2020 isosorbide mononitrate ER (IMDUR) 30 mg 24 hr tablet Take 30 mg by mouth. 0 08/31/2022 Active Comment on above: Take 30 mg by mouth. loperamide hydrochloride 2 mg oral tablet (15 sources) Opioid Agonist Start: 02-21-2021 loperamide HCl (IMODIUM) 2 mg tab Take 2 mg by mouth. 0 02/21/2021 Active Loperamide A-D A ctive Comment on above: Take 2 mg by mouth. omeprazole 40 mg delayed release oral capsule (14 sources) Proton Pump Inhibitor Start: 01-06-2023 omeprazole (PRILOSEC) 40 mg capsule Take 40 mg by mouth. 0 01/06/2023 Active Start: 08-24-2022 take 1 capsule by [facility] once daily omeprazole 40 mg Cap-DR 40 mg, Oral, Daily, # 90 EA, Refills(s) 0, Pharmacy: [facility] ([facility] ), 167.6, cm, 08/24/22 8:10:00 EDT, Height/Length Dosing, 83.4, kg, 08/24/22 8:10:00 EDT, Weight Dosing Start Date: 08/24/22 Status: Ordered Start: 04-27-2022 omeprazole Ora l, Daily, Refills(s) 0 Start Date: 04/27/22 Status: Ordered Omeprazole Activ e Comment on above: Take 40 mg by mouth. Prazosin (4 sources) alpha-Adrenergic Gabo Prazosi n HCl Not-Taking Prazosin HCl Act rosa rosuvastatin calcium 10 mg oral tablet (16 sources) HMG-CoA Reductase Inhibitor Start: 04-24-2020 rosuvastatin (CRESTO R) 10 mg tablet Take 10 mg by mouth. 0 11/10/2022 Active Crestor Active Comment on above: Take 10 mg by mouth. sotalol hydrochloride 80 mg oral tablet (15 sources) Antiarrhythmic Start: 04-24-2020 sotalol (BETAPACE) 80 mg tablet Take 80 mg by mouth. 0 04/24/2020 Active Start: 04-24-2020 take 0.5 tablet by [facility] twice daily sotalol 80 mg Tab 0.5 tab, Oral, BID, Refills(s) 0 Start Date: 04/24/20 Status: Ordered Comment on above: Take 80 mg by mouth. sucralfate 1000 mg oral tablet (12 sources) Aluminum Complex Start: 12-15-2022 sucralfate (CARAFATE) 1 gram tablet Take 1 g by mouth. 0 12/15/2022 Active Start: 12-15-2022 sucralfate 1 g Tab Refills(s) 0 Start Date: 12/15/22 Status: Ordered Start: 04-27-2022 sucralfate 1 g Tab gm tab(s), Oral, QIDACHS, Refills(s) 0 Start Date: 04/27/22 Status: Ordered Sucralfate Not-T aking Sucralfate Activ e Comment on above: Take 1 g by mouth. temazepam 15 mg oral capsule (5 sources) Benzodiazepine take 1 capsule by mouth every twenty-four hours Temazepam 15 MG 1 capsule at bedtime as needed Orally Once a day Not-Taking zolpidem tartrate 5 mg oral tablet (2 sources) gamma-Aminobutyric Acid-ergic Agonist zolpidem (AMBIEN) 5 mg tablet Take 5 mg by mouth. 0 Active Comment on above: Take 5 mg by mouth. zonisamide 25 mg oral capsule (5 sources) Anti-epileptic Agent Start: 3 zonisamide (ZONEGRAN) 25 mg capsule Start: 02-15-2023 take 1 capsule by [facility] twice daily zonisamide 25 mg Cap 25 mg = 1 cap(s), Oral, BID, Refills(s) 0 Start Date: 02/15/23 Status: Ordered Problems Active Problems Problem Classification Problem Date Documented Da te Episodic/Chronic Abdominal pain (20 sources) Lower abdominal pain; Translations: [Right flank pain] Onset: 3 04-25-2020 Episodic Cancer of prostate (13 sources) History of malignant neoplasm of prostate; Translations: [Personal history of malignant neoplasm of prostate] Onset: 2 03-21-2021 Episodic Conduction disorders (13 sources) Cardiac pacemaker in situ; Translations: [Presence of cardiac pacemaker] Onset: 2 04-24-2020 Chronic Coronary atherosclerosis and other heart disease (8 sources) Coronary arteriosclerosis; Translations: [Atherosclerotic heart disease of [place] coronary artery without angina pectoris] Onset: 2 Chronic Diabetes mellitus with complications (10 sources) Neuropathy due to diabetes mellitus; Translations: [Autonomic neuropathy due to type 2 diabetes mellitus] Onset: 2 04-24-2020 Chronic Diabetes mellitus without complication (9 sources) Diabetes mellitus; Translations: [Type 2 diabetes mellitus without complication] Onset: 3 04-24-2020 Chronic Disorders of lipid metabolism (12 sources) Hypercholesterolemia; Translations: [Pure hypercholesterolemia, unspecified] Onset: 2 04-24-2020 Chronic Esophageal disorders (14 sources) Gastroesophageal reflux disease with apnea; Translations: [Gastro-esophageal reflux disease without esophagitis] Onset: 3 04-24-2020 Chronic Essential hypertension (16 sources) Hypertensive disorder; Translations: [Essential hypertension] Onset: 2 04-24-2020 Chronic Gastroduodenal ulcer (except hemorrhage) (8 sources) Peptic ulcer 10-31-2020 Chronic Genitourinary symptoms and ill-defined conditions (20 sources) Incontinence; Translations: [Incontinence without sensory awareness] 04-27-2022 Chronic Glaucoma (8 sources) Glaucoma 04-24-2020 Chronic Heart valve disorders (2 sources) Nonrheumatic mitral (valve) insufficiency; Translations: [Nonrheumatic mitral (valve) insufficiency] Onset: 2 Chronic Inflammatory conditions of male genital organs (8 sources) Prostatitis 04-27-2022 Episodic Lymphadenitis (3 sources) Lymphadenopathy 02-15-2023 Episodic Neoplasms of unspecified nature or uncertain behavior (2 sources) Benign neoplasm of pancreas; Translations: [Neoplasm of unspecified behavior of digestive system] 04-02-2023 Episodic Nonspecific chest pain (12 sources) Chest wall pain; Translations: [Other chest pain] Onset: 3 02-21-2021 Episodic Nutritional deficiencies (9 sources) Vitamin D deficiency; Translations: [Vitamin D deficiency, unspecified] Onset: 2 04-24-2020 Chronic Osteoarthritis (8 sources) Osteoarthritis 04-24-2020 Chronic Other aftercare (1 source) Other roasterman (current) drug therapy; Translations: [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] Onset: 3 Episodic Other aftercare (1 source) residential (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; Translations: [MCFP CURRENT USE OF ASPIRIN] Onset: 3 Episodic Other aftercare (1 source) 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 of antithrombotics/antipl atelets; Translations: [[facility] ANTITHROMBOT/ANTIPLATL ETS] Onset: 3 Episodic Other aftercare (1 source) residential (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 of oral hypoglycemic drugs; Translations: [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 USE ORAL HYPOGLYCEMIC DX] Onset: 3 Episodic Other circulatory disease (1 source) Raynaud's syndrome without gangrene; Translations: [RAYNAUDS SYNDROME WITHOUT GANGRENE] Onset: 2 Chronic Other gastrointestinal disorders (1 source) Heartburn 10-31-2020 Episodic Other gastrointestinal disorders (8 sources) Dysphagia; Translations: [Dysphagia, unspecified] Onset: 3 12-15-2022 Episodic Other gastrointestinal disorders (5 sources) Hard stool 12-15-2022 Episodic Other gastrointestinal disorders (6 sources) Urgent desire for stool; Translations: [Fecal urgency] Onset: 3 12-15-2022 Episodic Other gastrointestinal disorders (1 source) Digestive system finding; Translations: [Other specified symptoms and signs involving the digestive system and abdomen] Onset: 3 Episodic Other gastrointestinal disorders (3 sources) Irregular bowel habits 02-25-2023 Episodic Other gastrointestinal disorders (1 source) Abnormal feces; Translations: [Other fecal abnormalities] Onset: 3 Episodic Other gastrointestinal disorders (2 sources) Loose stool 03-10-2023 Episodic Other lower respiratory disease (2 sources) Apnea, not elsewhere classified Episodic Other nervous system disorders (4 sources) Polyneuropathy associated with another disorder; Translations: [Polyneuropathy in diseases classified elsewhere] Chronic Other nervous system disorders (1 source) 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 Other nervous system disorders (1 source) Other chronic pain; Translations: [OTHER CHRONIC PAIN] Onset: 2 Chronic Other nervous system disorders (7 sources) Numbness of hand 08-24-2022 Episodic Other non-traumatic joint disorders (4 sources) Other instability, right ankle; Translations: [OTHER INSTABILITY RIGHT ANKLE] Onset: 3 Episodic Other nutritional; endocrine; and metabolic disorders (8 sources) Body mass index 30+ - obesity 02-21-2021 Chronic Other screening for suspected conditions (not mental disorders or infectious disease) (1 source) Screening for malignant neoplasm of colon done; Translations: [Encounter for screening for malignant neoplasm of colon] Onset: 3 Episodic Other skin disorders (3 sources) Mass of neck 02-15-2023 Episodic Otitis media and related conditions (3 sources) Otitis media 02-15-2023 Episodic Pancreatic disorders (not diabetes) (8 sources) Cyst of pancreas; Translations: [Cyst of pancreas] Onset: 3 Episodic Phlebitis; thrombophlebitis and thromboembolism (1 source) Personal history of other venous thrombosis and embolism; Translations: [PERS HX OTH VENOUS THROMBOSIS AND EMBO] Onset: 3 Episodic Pneumonia (except that caused by tuberculosis or sexually transmitted disease) (1 source) Pneumonia (except that caused by tuberculosis or sexually transmitted disease); Translations: [PNEUMONIA D/T CORONAVIRUS DIS 2019] Onset: 3 Residual codes; unclassified (8 sources) Sleep apnea 04-24-2020 Chronic Residual codes; unclassified (4 sources) Obstructive sleep apnea syndrome; Translations: [Obstructive sleep apnea (adult) (pediatric)] Chronic Residual codes; unclassified (4 sources) Daytime somnolence; Translations: [Other hypersomnia] Chronic Residual codes; unclassified (3 sources) Obstructive sleep apnea (adult) (pediatric) Chronic Residual codes; unclassified (1 source) Other hypersomnia Chronic Residual codes; unclassified (1 source) Sleep apnea, unspecified; Translations: [SLEEP APNEA UNSPECIFIED] Onset: 3 Chronic Residual codes; unclassified (1 source) Obstructive sleep apnea (adult)(pediatric); Translations: [Obstructive sleep apnea (adult) (pediatric)] Onset: 3 Chronic Residual codes; unclassified (1 source) Acquired absence of other genital organ(s); Translations: [ACQUIRED ABSENCE OTH GENITAL ORGANS] Onset: 3 Episodic Residual codes; unclassified (5 sources) FH: Stomach cancer 12-15-2022 Episodic Spondylosis; intervertebral disc disorders; other back problems (10 sources) Spondylosis without myelopathy or radiculopathy, lumbar region; Translations: [Other intervertebral disc degeneration, lumbar region] Onset: 2 Chronic Substance-related disorders (5 sources) Hypnotic dependence; Translations: [Sedative, hypnotic or anxiolytic dependence, 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 Unclassified (4 sources) LOW BACK PAIN, UNSPECIFIED; Translations: [LOW BACK PAIN, UNSPECIFIED] Onset: 3 Unclassified (1 source) Encounter for checking and testing of cardiac pacemaker pulse generator [battery]; Translations: [Encounter for checking and testing of cardiac pacemaker pulse generator [battery]] Onset: 3 Unclassified (1 source) Posterior tibial tendinitis, right leg; Translations: [Posterior tibial tendinitis, right leg] Onset: 3 Unclassified (3 sources) Patient encounter status 02-25-2023 Urinary tract infections (1 source) Urinary tract infectious disease 04-27-2022 Episodic Viral infection (11 sources) Disease caused by 2019-nCoV; Translations: [COVID-19] Onset: 3 Past or Other Problems Problem Classification Problem Date Documented Da te Episodic/Chronic Cardiac dysrhythmias (2 sources) Palpitations; Translations: [Palpitations] Onset: 06-11-2022 Episodic Other connective tissue disease (2 sources) Pain in left finger(s); Translations: [PAIN IN LEFT FINGERS] Onset: 11-29-2021 Resolved: 11-29-2021 Episodic Other connective tissue disease (4 sources) Pain in right foot; Translations: [PAIN IN RIGHT FOOT] Onset: 06-18-2022 Episodic Other connective tissue disease (3 sources) Pain in arm, unspecified; Translations: [PAIN IN ARM UNSPECIFIED] Onset: 04-16-2022 Episodic Other connective tissue disease (1 source) Pain in left upper arm; Translations: [PAIN IN LEFT UPPER ARM] Onset: 04-20-2022 Episodic Other connective tissue disease (1 source) Pain in right upper arm; Translations: [PAIN IN RIGHT UPPER ARM] Onset: 04-20-2022 Episodic Other gastrointestinal disorders (4 sources) Diarrhea, unspecified; Translations: [DIARRHEA UNSPECIFIED] Onset: 03-06-2022 Episodic Other nervous system disorders (1 source) Unspecified disturbances of skin sensation; Translations: [UNS DISTURBANCES OF SKIN SENSATION] Onset: 04-20-2022 Episodic Other skin disorders (4 sources) Nail dystrophy; Translations: [NAIL DYSTROPHY] Onset: 06-11-2022 Episodic Other skin disorders (1 source) Other nail disorders; Translations: [OTHER NAIL DISORDERS] Onset: 06-16-2022 Episodic Spondylosis; intervertebral disc disorders; other back problems (9 sources) Muscle spasm of back; Translations: [Radiculopathy, cervical region] Onset: 11-13-2021 Episodic Unclassified (1 source) Paroxysmal ventricular tachycardia I47.29 Unclassified (1 source) Acute cough R05.1 Unclassified (1 source) LOW BACK PAIN, UNSPECIFIED; Translations: [LOW BACK PAIN, UNSPECIFIED] Onset: 08-25-2022 Results Test Name Value Interpretation Reference Range Facil ity Operative Reporton 3 Operative Report [id number] IFF [facility] IntraOperative Documentson 1 06-22-2022 IntraOperative Documents [id number]#1.00 TIFF [facility] Reminderson 04-21-2023 Reminders - From: Letty Valdez To: Aleida Gonzalez; Jennifer Bishop; Letty Valdez; Sent: 12/15/2022 13:00:41 EDT Show up: 12/15/2022 12:59:00 EDT Subject: Ambulatory Reminder Due Date/Time: 01/15/2023 12:59:00 EDT Reminder/Recall Pt needs to schedule an EGD w/poss dilation and a Colonoscopy with Dr. Henderson once he is able to take [employer]. Pt unable to go to [facility] due to respiratory issues. He will also need to hold his Plavix 5 days prior - his medical grade shoemaker is Dr. Arellano. He has signed a consent and it is scanned into his chart already. Ordered Plenvu and I have gone over instructions with patient and sent him home with a packet. EGD performed by Dr Powers on 04/15. Referred to [facility]. Colonoscopy was not done - last scope 2017. [facility] Progress Note-Physicianon Progress Note-Physician Patient: JEREMIE BENNETT Age: 82 years Sex: Male : 1940 Associated Diagnoses: None Author: MD Matt, Anaya Salgado Postoperative Information Postoperative disposition: Postoperative disposition: To PACU. Optimetrix number: Optimetrix number [id number]. Anesthetic utilized: General. Health Status Allergies: Allergic Reactions (Selected) Severity Not Documented Adhesive Bandage- Rash. Niaspan ER- Itching. Physical Examination VS/Measurements Pain Assessment: Controlled. General: Awake, Alert, Appropriate. Respiratory: Adequate air exchange. Cardiovascular: Stable, Normal peripheral perfusion. Neurological: Normal sensory function, Normal motor function. Assessment Anesthetic outcome No anesthetic complications noted. Adequate pain relief. able to void without difficulty, able to ambulate with assist, tolerating PO intake, no N/V. Review / Management Condition: Stable. Plan Transfer/Discharge: Transfer/Discharge Discharge when meets criteria ( To home ). Normal [facility] Comment on above: Result Comment: Elec tronically Signed By: MD Matt, nAaya Salgado\.br\Date and Time Signed: 04/17/23 20:25 EST Progress Note-Physician Patient: JEREMIE BENNETT Age: 82 years Sex: Male : 1940 Associated Diagnoses: None Author: MD Matt, Anaya Salgado Preoperative Information Time patient last ate or drank:=== (npo 8 hours) Anesthesia history: Patient history: No prior anesthesia problems. Re-evaluation prior to induction: Completed, Initial evaluation reviewed. Review of Systems Respiratory: No shortness of breath. Cardiovascular: No chest pain. Hematology/Lymphatics: No bruising tendency, No bleeding tendency. Health Status Allergies: Allergic Reactions (All) Severity Not Documented Adhesive Bandage- Rash. Niaspan ER- Itching. Current medications: (Selected) Prescriptions Prescribed Albuterol (Eqv-ProAir HFA) 90 mcg/inh inhalation aerosol: See Instructions, 17 gm, Refill(s) 6, USE 2 INHALATIONS BY MOUTH EVERY 6 HOURS, [facility] ([facility]), 163, cm, 11/04/22 15:03:00 EDT, Height/Length Dosing, 76, kg, 11/04/22 15:03:00 EDT, Weight Dosing Flonase 0.05 mg/inh [place]: 1 spray(s), Nasal, BID, 16 gram, Refill(s) 0, each nostril, [facility] ([facility] ), 167.6, cm, 08/24/22 8:10:00 EDT, Height/Length Dosing, 83.4, kg, 08/24/22 8:10:00 EDT, Weight Dosing Plenvu oral powder for reconstitution: See Instructions, 1 EA, Refill(s) 0, Prior to colonoscopy., [id number], 163, cm, 12/15/22 12:03:00 EDT, Height/Length Dosing, 73.3, kg, 12/15/22 12:03:00 EDT, Weight Dosing gabapentin 600 mg Tab: 600 mg, Oral, TID, # 270 EA, Refills(s) 0, Pharmacy: [facility], 163, cm, 02/25/23 13:29:00 EDT, Height/Length Dosing, 78.8, kg, 02/25/23 13:29:00 EDT, Weight Dosing omeprazole 40 mg Cap-DR: See Instructions, TAKE 1 CAPSULE BY MOUTH DAILY, # 90 cap(s), Refills(s) 3, Pharmacy: [facility] ([facility]), 163, cm, 12/15/22 12:03:00 EDT, Height/Length Dosing, 73.3, kg, 12/15/22 12:03:00 EDT, Weight Dosing rosuvastatin 10 mg Tab: See Instructions, TAKE 1 TABLET BY MOUTH DAILY, # 90 tab(s), Refills(s) 3, Pharmacy: [facility] ([facility]), 163, cm, 11/04/22 15:03:00 EDT, Height/Length Dosing, 76, kg, 11/04/22 15:03:00 EDT, Weight Dosing Documented Medications Documented APAP/butalbital/caffein e 325 mg-50 mg-40 mg Tab: Refill(s) 0, Headache Aspir 81: 81 mg, Oral, Daily, Refills(s) 0, Prophylaxis Metamucil: Refills(s) 0, Constipation [facility] Prescription: See Instructions, one touch ultra lancets Use to test sugars once a day [facility] Prescription: See Instructions, one touch ultra test strips test sugars once a day Multivitamin, Therapeutic w/ Minerals: Oral, Daily, Refill(s) 0, Prophylaxis Shubert-3 Fish Oil: Oral, Daily, Refills(s) 0, Prophylaxis Plavix 75 mg Tab: 75 mg = 1 tab(s), Oral, Daily, Refills(s) 0, Blood Thinner amLODIPine 5 mg Tab: 5 mg = 1 tab(s), Oral, Daily, Refills(s) 0, High blood pressure dorzolamide ophthalmic 2% solution: 1 drop(s), OPTH, BID, Refill(s) 0, each eye furosemide 20 mg Tab: 20 mg = 1 tab(s), Oral, Daily, Refills(s) 0, diuretic/water pill irbesartan 300 mg Tab: 300 mg = 1 tab(s), Oral, Daily, Refills(s) 0, High blood pressure isosorbide mononitrate: 30 mg, Oral, qAM, Refills(s) 0, High blood pressure latanoprost ophthalmic: qPM, Refill(s) 0, Dry eyes loperamide 2 mg Tab: 2 mg = 1 tab(s), Oral, q4hr, Refills(s) 0, Diarrhea metformin 500 mg ER Tab: mg tab(s), Oral, BID, Refills(s) 0, High blood sugar sotalol 80 mg Tab: 0.5 tab, Oral, BID, Refills(s) 0, High blood pressure sucralfate 1 g Tab: Refills(s) 0, Control of stomach acid tiZANidine 4 mg Tab: 4 mg = 1 tab(s), Oral, Daily, Refills(s) 0, Spasm zonisamide 25 mg Cap: 25 mg = 1 cap(s), Oral, BID, Refills(s) 0 Problem list: All Problems Primary hypertension / SNOMED CT 02743252 / Confirmed Hypercholesterolemia / SNOMED CT 72043157 / Confirmed Osteoarthritis / SNOMED CT 4934209510 / Confirmed Sleep apnea / SNOMED CT 173304969 / Confirmed Vitamin D deficiency / SNOMED CT 27098990 / Confirmed GERD with apnea / SNOMED CT 4986462197 / Confirmed Diabetic autonomic neuropathy associated with type 2 diabetes mellitus / SNOMED CT 0482741942 / Confirmed Glaucoma / SNOMED CT 22488475 / Confirmed Pacemaker / SNOMED CT 7219501290 / Confirmed Type 2 diabetes mellitus without complication, without long-term current use of insulin / ICD-10-CM E11.9 / Confirmed Upper abdominal pain / SNOMED CT 576559155 / Confirmed Lower abdominal pain / SNOMED CT 75729549 / Confirmed PUD (peptic ulcer disease) / SNOMED CT 02420372 / Confirmed BMI 30.0-30.9,adult / SNOMED CT 375717133 / Confirmed Right flank pain, chronic / SNOMED CT 379477245 / Confirmed Right-sided chest wall pain / SNOMED CT 725928816 / Confirmed Personal history of prostate cancer / SNOMED CT 5392402742 / Confirmed Leaking of urine / SNOMED CT 7927074816 / Confirmed Urinary incontinence without sensory awareness / SNOMED CT 9545132698 / Confirmed Mixed incontinence / SNOMED (more content not included)... Normal [facility] Comment on above: Result Comment: Elec tronically Signed By: MD Matt, Anaya Salgado\.br\Date and Time Signed: 04/17/23 20:24 EST Consenton 04-16-2023 Consent [id number]#1.00T IFF Normal [facility] Discharge Instructionson Discharge Instructions [id number]#1.00T IFF Normal [facility] Main OR Intraoperative Recor don 04-16-2023 Main OR Intraoperative Record IntraOp Document Type FT Summary Primary Physician: Gordy Powers MD Finalized Date/Time: 04/16/23 09:59:57 Pt. Name: JEREMIE BENNETT/Sex: 1940 Male Med Rec #: [id number] Physician: Gordy Powers MD Financial #: [id number] Pt. Type: O Room/Bed: / Admit/Disch: 04/15/23 12:30:20 - 04/15/23 23:59:59 Institution: Case Times FT Entry 1 Patient Times In Room 04/15/23 13:08:00 Out Room 04/15/23 13:21:00 Procedure Times Start 04/15/23 13:12:00 Stop 04/15/23 13:18:00 Anesthesia Times Start 04/15/23 13:08:00 Stop 04/15/23 13:21:00 Last Modified By: Zohaib ESCALANTE, Sabine Tripp 04/15/23 13:21:26 General Comments: 04/16/23 Chart opened to review and send charges [facility]oth CSFA Case Attendance FT Entry 1 Entry 2 Entry 3 Case Attendee Jose FERGUSON, Daniel Javier, Minerva Cabrera MOTORCYCLE BUILDER, Negar Campbell Role Performed COMPANION CAREGIVER Staff - Other Scrub - Primary Time In 04/15/23 13:08:00 04/15/23 13:08:00 04/15/23 13:08:00 Time Out 04/15/23 13:21:00 04/15/23 13:21:00 04/15/23 13:21:00 Procedure EGD(.) EGD(.) EGD(.) Comments Dr. Gutierrez is supervising Last Modified By: Zohaib ESCALANTE, Sabine Penny RN, Sabine Pittman RN 04/15/23 13:21:27 04/15/23 13:21:27 04/15/23 13:21:27 Entry 4 Entry 5 Case Attendee Gio CASON, Gordy Penny RN, Sabine Tripp Role Performed Surgeon - Primary Environmental Health Physician - Primary Time In 04/15/23 13:08:00 04/15/23 13:08:00 Time Out 04/15/23 13:21:00 04/15/23 13:21:00 Procedure EGD(.) EGD(.) Comments Last Modified By: Zohaib ESCALANTE, Sabine Penny RN, Sabine Tripp 04/15/23 13:21:27 04/15/23 13:21:27 Perioperative Protocols FT Pre-Care Text: Implements protective measures prior to operative or invasive procedure, confirms identity before the operative or invasive procedure, verifies operative procedure, surgical site, and laterality Entry 1 Procedure(s) EGD(.) Patient Identity Birthday, ID Band Verified (select at Check, Patient least 2): Participation Consents / H and P Anesthesia Consent, Operative Site N/A Verified HandP, Surgery/Procedure Marking Verified Consent Surgical Site No Laterality Verified n/a Verified Procedure Verified Yes Correct Patient Yes Position Verified Availability Equipment, Medication Prep Dry n/a Verified (If Applicable) PreOp Antibiotic No Time Out Minerva Javier, Given Participants Daniel Garcia CRNA, Schafer CST, Gio Espino MD, Zohaib Ferrell RN, Kristin N Time Out Complete 04/15/23 13:10:00 Outcomes Met? Yes Last Modified By: Sabine Penny RN 04/15/23 13:10:59 Post-Care Text: The patient is free from signs and symptoms of injury caused by extraneous objects Allergy Information FT Pre-Care Text: Verifies allergies Entry 1 Allergies Reviewed? Yes Allergies Reviewed Self/Patient With Outcomes Met? Yes Last Modified By: Sabine Penny RN 04/15/23 13:11:25 Post-Care Text: The patient received appropriate medication(s) safely administered during the perioperative period Surgical Procedures FT Entry 1 Procedure Description Procedure EGD Modifiers . Surgeon Description EGD with antral biopsy Primary Procedure Yes Primary Surgeon Gordy Powers MD Start 04/15/23 13:12:00 Stop 04/15/23 13:18:00 Anesthesia Type General Surgical Service General Wound Class 2 - Clean-Contaminated Last Modified By: Sabine Penny RN 04/15/23 13:18:29 General Case Data FT Pre-Care Text: Classifies surgical wound, implements aseptic technique, initiates traffic control Entry 1 Case Information OR ENDO 1 FT Case Level Level 2 Wound Class 2 - Clean-Contaminated Specialty General ASA Class 3 Preop Diagnosis Abdominal pain Postop Same As Preop No Postop Diagnosis Normal Outcomes Met? Yes Last Modified By: Sabine Penny RN 04/15/23 13:21:36 Post-Care Text: The patient is free from signs and symptoms of infection Skin Assessment (Pre Procedure) FT Pre-Care Text: Implements protective measures to prevent skin/ tissue injury due to thermal or mechanical sources Evaluates for signs and symptoms of physical injury to skin and tissue Entry 1 Skin Integrity Intact, [place], Warm, and Skin Abnormality No Dry Outcomes Met? Yes Last Modified By: Sabine Penny RN 04/15/23 13:11:55 Post-Care Text: The patient is free from signs and symptoms of injury caused by extraneous objects Patient Positioning FT Pre-Care Text: Identifies physical alterations that require additional precautions for procedure-specific positioning, verifies presence of prosthetics or corrective devices, positions the patient, evaluates the patient for signs and symptoms of injury as a result of positioning Entry 1 Procedure EGD(.) Body Position Lateral, right side up Feet Uncrossed? Yes Left Arm Position Resting at Side Right Arm Position Resting at Side Left Leg Position Extended Right Leg Position Extended Positioning Device (more content not included)... Normal [facility] Postoperative Documentson Postoperative Documents [id number] IFF Normal [facility] Consent for Treatmenton 03-19 Consent for Treatment [id number] IFF Normal [facility] Discharge Instructionson Discharge Instructions JEREMIE BENNETT :1940 Visit Date:04/15/2023 Inpatient Discharge Instructions Your Care Team Admitting Physician - Gordy Powers MD Referring Physician - Gordy Powers MD Reason for Your Visit ABDOMINAL PAIN Tests Performed Pathology Tissue Exam -- Results Pending -- Please visit your patient portal for your results or contact your primary care physician. This Is Your Medications List APAP/butalbital/caffein e (APAP/butalbital/caffei ne 325 mg-50 mg-40 mg Tab) Misc Prescription ([facility] Prescription) Misc Prescription ([facility] Prescription) albuterol (Albuterol (Eqv-ProAir HFA) 90 mcg/inh inhalation aerosol) amlodipine (amLODIPine 5 mg Tab) aspirin (Aspir 81) clopidogrel (Plavix 75 mg Tab) dorzolamide ophthalmic (dorzolamide ophthalmic 2% solution) fluticasone nasal (Flonase 0.05 mg/inh [place]) furosemide (furosemide 20 mg Tab) gabapentin (gabapentin 600 mg Tab) irbesartan (irbesartan 300 mg Tab) isosorbide mononitrate latanoprost ophthalmic loperamide (loperamide 2 mg Tab) metformin (metformin 500 mg ER Tab) multivitamin with minerals (Multivitamin, Therapeutic w/ Minerals) omega-3 polyunsaturated fatty acids (Shubert-3 Fish Oil) omeprazole (omeprazole 40 mg Cap-DR) polyethylene glycol 3350 with electrolytes (Plenvu oral powder for reconstitution) psyllium (Metamucil) rosuvastatin (rosuvastatin 10 mg Tab) sotalol (sotalol 80 mg Tab) sucralfate (sucralfate 1 g Tab) tizanidine (tiZANidine 4 mg Tab) zonisamide (zonisamide 25 mg Cap) Procedure History Esophagogastroduodenosc opy (04/15/2023), Esophagogastroduodenosc opy (05/20/2020), Angioplasty, Cardiac pacemaker procedure, Cataract, Cholecystectomy, Colonoscopy, Hernia repair, Prostate excision, Tonsillectomy, Vasectomy. What to do next Instructions From Your Doctor Event Name Event Result [place] [facility] [place] Scheduled Follow-Up Appointments Wednesday 1:40 PM EST With: Anjali Ruby CNP Where: [facility] Invalid Interpretation Code [address] [place] [address]- \.br\ Wednesday 1:00 PM EDT \.br\ With:\.br\ Where: [facility] Comment on above: Result Comment: Elec tronically Signed By: Marcel ESCALANTE, Gris Araiza\.br\Date and Time Signed: 04/15/23 13:27 EST Inpatient Patient Summaryon 04-15-2023 Inpatient Patient Summary [address] [address] [facility] Clinical Discharge Instructions PERSON INFORMATION Name: JEREMIE BENNETT PHYSICIANS Admitting Physician: Gordy Powers MD Attending Physician: Gordy Powers MD PCP: Sabino Cooper MD Discharge Diagnosis: Comment: PATIENT EDUCATION INFORMATION Instructions: Upper Endoscopy, Adult, Care After; Endoscopy, Care After Procedure [facility] ([facility]) Medication Leaflets: Follow up: With: Address: When: Gio CASON, Gordy Rosa, TC Comments: Office will call with results. Type Location Start [facility] Follow Up [facility] 05/03/2023 1:40 PM 05/03/2023 2:00 PM Confirmed FM Open [facility]3] 05/31/2023 10:00 AM 05/31/2023 10:15 AM Confirmed FM Medicare Wellness Subsequent [facility]3] 11/08/2023 1:00 PM 11/08/2023 2:00 PM Confirmed MEDICATION LIST Medications to Continue with No Changes Other Medications albuterol (Albuterol (Eqv-ProAir HFA) 90 mcg/inh inhalation aerosol) USE 2 INHALATIONS BY MOUTH EVERY 6 HOURS. Refills: 6. amlodipine (amLODIPine 5 mg Tab) 1 Tablets By Mouth every day. APAP/butalbital/caffein e (APAP/butalbital/caffei ne 325 mg-50 mg-40 mg Tab) aspirin (Aspir 81) 81 Milligram By Mouth every day. clopidogrel (Plavix 75 mg Tab) 1 Tablets By Mouth every day. dorzolamide ophthalmic (dorzolamide ophthalmic 2% solution) 1 Drops Ophthalmic 2 times a day. each eye. fluticasone nasal (Flonase 0.05 mg/inh [place]) 1 Sprays Nasal Inhalation 2 times a day. each nostril. Refills: 0. furosemide (furosemide 20 mg Tab) 1 Tablets By Mouth every day. gabapentin (gabapentin 600 mg Tab) 600 Milligram By Mouth 3 times a day. Refills: 0. irbesartan (irbesartan 300 mg Tab) 1 Tablets By Mouth every day. isosorbide mononitrate 30 Milligram By Mouth once a day (in the morning). latanoprost ophthalmic once a day (in the evening). loperamide (loperamide 2 mg Tab) 1 Tablets By Mouth every 4 hours. metformin (metformin 500 mg ER Tab) By Mouth 2 times a day. [facility] Prescription ([facility] Prescription) one touch ultra lancets Use to test sugars once a day. [facility] Prescription ([facility] Prescription) one touch ultra test strips test sugars once a day. multivitamin with minerals (Multivitamin, Therapeutic w/ Minerals) By Mouth every day. omega-3 polyunsaturated fatty acids (Shubert-3 Fish Oil) By Mouth every day. omeprazole (omeprazole 40 mg Cap-DR) TAKE 1 CAPSULE BY MOUTH DAILY. Refills: 3. polyethylene glycol 3350 with electrolytes (Plenvu oral powder for reconstitution) Prior to colonoscopy.. Refills: 0. psyllium (Metamucil) rosuvastatin (rosuvastatin 10 mg Tab) TAKE 1 TABLET BY MOUTH DAILY. Refills: 3. sotalol (sotalol 80 mg Tab) 0.5 tab By Mouth 2 times a day. sucralfate (sucralfate 1 g Tab) tizanidine (tiZANidine 4 mg Tab) 1 Tablets By Mouth every day. zonisamide (zonisamide 25 mg Cap) 1 Capsules By Mouth 2 times a day. Comment: Catherine Flor [facility] Main OR PACU I Recordon 03-19 Main OR PACU I Record PACU Phase I Document Type FT Summary Primary Physician: Gordy Powers MD Finalized Date/Time: 04/15/23 13:58:46 Pt. Name: JEREMIE BENNETT/Sex: 1940 Male Med Rec #: [id number] Physician: Gordy Powers MD Financial #: [id number] Pt. Type: O Room/Bed: / Admit/Disch: 04/15/23 12:30:20 - Institution: Case Times PACU I FT Pre-Care Text: Identifies barriers to communication and implements measures to provide psychological support Develops individualized plan of care, and ensures continuity of care Maintains patient's dignity and privacy, and maintains patient confidentiality Identifies and reports philosophical, cultural, and spiritual beliefs and values Identifies individual values and wishes concerning care Implements aseptic technique, and administers prescribed antibiotic therapy and immunizing agents as ordered Evaluates postoperative tissue perfusion Implements thermoregulation measures, and monitors body temperature Evaluates postoperative respiratory status Evaluates postoperative cardiac status Evaluates postoperative neurological status Assesses pain control, collaborated in initiating patient-controlled analgesia and implements alternative methods of pain control Verifies allergies, administers prescribed medications and solutions, evaluates response to medications Entry 1 In PACU I 04/15/23 13:22:00 Discharge from PACU 04/15/23 13:52:00 I Outcomes Met? Yes Last Modified By: Marcel ESCALANTE, Gris Araiza 04/15/23 13:58:34 Post-Care Text: The patient demonstrates knowledge of the expected response to the operative or invasive procedure The patient's care is consistent with the individualized perioperative plan of care The patient's right to privacy is maintained The patient's value system, lifestyle, ethnicity, and culture are considered, respected, and incorporated into the perioperative plan of care The patient participates in decisions affecting his or her perioperative plan of care The patient is free from signs and symptoms of infection The patient has wound/tissue perfusion consistent with or improved from baseline levels established preoperatively The patient is at or returning to normothermia at the conclusion of the immediate postoperative period The patient's respiratory function is consistent with or improved from baseline levels established preoperatively The patient's cardiovascular status is consistent with or improved from baseline levels established preoperatively The patient's cardiovascular status is consistent with or improved from baseline levels established preoperatively The patient demonstrates and/or reports adequate pain control throughout the perioperative period The patient received appropriate medication(s), safely administered during the perioperative period Acuity Level PACU I FT Entry 1 Start Time 04/15/23 13:22:00 Stop Time 04/15/23 13:52:00 Acuity Level Acuity Level I Last Modified By: Gris Rod RN 04/15/23 13:58:43 Finalized By: Gris Rod RN Document Signatures Signed By: Gris Rod RN 04/15/23 13:58 Normal [facility] Main OR Preoperative Recordo n 04-15-2023 Main OR Preoperative Record Holding Area Document Type FT Summary Primary Physician: Gordy Powers MD Finalized Date/Time: 04/15/23 12:46:57 Pt. Name: JEREMIE BENNETT/Sex: 1940 Male Med Rec #: [id number] Physician: Gordy Powers MD Financial #: [id number] Pt. Type: O Room/Bed: / Admit/Disch: 04/15/23 12:30:20 - Institution: Case Times Holding FT Pre-Care Text: Verifies consent for planned procedure, identifies individual values and wishes concerning care, includes family members in perioperative teaching Secures patient's records' belongings, and valuables, maintains patient's dignity and privacy, and maintains patient confidentiality Entry 1 In Holding 04/15/23 12:37:00 Outcomes Met? Yes Last Modified By: Letty Sanches RN 04/15/23 12:37:29 Post-Care Text: The patient participates in decisions affecting his or her perioperative plan of care The patient's right to privacy is maintained Surgery Checklist FT Entry 1 Patient Birthday, ID Band Procedure History and Physical, Identification: Check, Patient Verification: Surgical Consent, With Participation Patient NPO after Midnight: Yes Date/Time: 04/15/23 00:00:00 Personal Items: Cataract Lens Implant, Personal Items ring, bilateral Dentures, Jewelry Comment: cataract lens implant, heart stents x5, dentures Limitations: n/a Complaints of Pain: No Pain Comment: denies Operative Site n/a Marking: Availability Equipment Verified: Does Patient Smoke No Patient states Yes Comment - Adult postop adult Supervision supervision available Case Cancelled in No Holding Area see comments below for reason Last Modified By: Letty Sanches RN 04/15/23 12:46:55 Finalized By: Letty Sanches RN Document Signatures Signed By: Letty Sanches RN 04/15/23 12:46 Normal [facility] Monitor Recordon 04-15-2023 Monitor Record [id number]#1.00 TIFF Normal [facility] Monitor Record [id number]#1.00 TIFF Normal [facility] Operative Reporton Operative Report Patient: ROXANNE BENNETT Age: 82 years Sex: Male : 1940 Associated Diagnoses: None Author: Gordy Powers MD Pre-Procedure Procedure Date 04/15/2023 13:33:00 . Procedure Type: Esophagogastroduodenosc opy with biopsy. Procedure provider Performed by Gordy Powers MD. Current history and physical Documented on chart. Informed Consent After discussing the rationale, risks and benefits, and alternatives to this procedure, the patient provided signed consent for the procedure. Pre-procedure diagnosis: Dysphagia/ odynophagia. Medications None. ASA Classification: Class III. . Monitoring: See anesthesia record. . Procedure The procedure was performed in the hospital. See anesthesia record for sedation given during procedure. The patient was positioned starting in the left lateral decubitus position. Endoscope type used was an adult-size, introduced orally, advanced to the 2nd portion of the duodenum. No difficulty was encountered during the procedure. Views were excellent. Gastric biopsies were taken of the antrum. The patient tolerated the procedure well. Findings Examination of the esophagus revealed a normal esophagus. The squamocolumnar junction appeared regular. Examination of the stomach revealed a normal stomach. Examination of the duodenum revealed a normal duodenum. Post-Procedure Complications: none. Estimated blood loss: none. Specimens: sent to pathology. Devices/ implants: none left in place. Normal [facility] Comment on above: Result Comment: Elec tronically Signed By: Gio CASON, Gordy Rosa\.br\Date and Time Signed: 04/15/23 13:35 EST Outpatient Surgery Discharge Instructionon 04-15-2023 Outpatient Surgery Discharge Instruction [place] [id number] Patient Discharge Instructions PERSON INFORMATION Name: JEREMIE BENNETT Date of : 1940 Current Date: 04/15/2023 13:32:56 PHYSICIANS Admitting Physician: Gordy Powers MD Discharge Diagnosis: JEREMIE BENNETT has been given the following list of follow-up instructions, prescriptions, and patient education materials: IF UNABLE TO CONTACT YOUR PHYSICIAN AND YOU FEEL IT IS AN EMERGENCY, GO TO THE NEAREST EMERGENCY ROOM OR CALL 911 I, JEREMIE BENNETT, have received the attached patient education materials/instructions and have verbalized understanding: May we do a follow up call? Yes No I was present when discharge instructions were given Patient Signature Date Clinican/Nurse Signature _ Date Follow up: With: Address: When: Gio CASON, Gordy Rosa, TC Comments: Office will call with results. Type Location Start [facility] Follow Up [facility] 05/03/2023 1:40 PM 05/03/2023 2:00 PM Confirmed FM Open [facility] [place] 05/31/2023 10:00 AM 05/31/2023 10:15 AM Confirmed Medicare Wellness Subsequent FT [place] 11/08/2023 1:00 PM 11/08/2023 2:00 PM Confirmed Pharmacy Information: Other: [facility] You may receive a survey from Shelby Shaver asking you to rate your care experience. Your feedback is important and will help us understand what we do well and how we can improve the quality of care we provide to you, your loved ones and our community. It?s an honor to serve you. Thank you for choosing [facility] HERE ARE THE MEDICATION CHANGES THAT OCCURRED DURING YOUR HOSPITAL STAY Medications to Continue with No Changes Other Medications albuterol (Albuterol (Eqv-ProAir HFA) 90 mcg/inh inhalation aerosol) USE 2 INHALATIONS BY MOUTH EVERY 6 HOURS. Refills: 6. amlodipine (amLODIPine 5 mg Tab) 1 Tablets By Mouth every day. APAP/butalbital/caffein e (APAP/butalbital/caffei ne 325 mg-50 mg-40 mg Tab) aspirin (Aspir 81) 81 Milligram By Mouth every day. clopidogrel (Plavix 75 mg Tab) 1 Tablets By Mouth every day. dorzolamide ophthalmic (dorzolamide ophthalmic 2% solution) 1 Drops Ophthalmic 2 times a day. each eye. fluticasone nasal (Flonase 0.05 mg/inh [place]) 1 Sprays Nasal Inhalation 2 times a day. each nostril. Refills: 0. furosemide (furosemide 20 mg Tab) 1 Tablets By Mouth every day. gabapentin (gabapentin 600 mg Tab) 600 Milligram By Mouth 3 times a day. Refills: 0. irbesartan (irbesartan 300 mg Tab) 1 Tablets By Mouth every day. isosorbide mononitrate 30 Milligram By Mouth once a day (in the morning). latanoprost ophthalmic once a day (in the evening). loperamide (loperamide 2 mg Tab) 1 Tablets By Mouth every 4 hours. metformin (metformin 500 mg ER Tab) By Mouth 2 times a day. Misc Prescription (Misc DME Prescription) one touch ultra lancets Use to test sugars once a day. Misc Prescription (Misc DME Prescription) one touch ultra test strips test sugars once a day. multivitamin with minerals (Multivitamin, Therapeutic w/ Minerals) By Mouth every day. omega-3 polyunsaturated fatty acids (Shubert-3 Fish Oil) By Mouth every day. omeprazole (omeprazole 40 mg Cap-DR) TAKE 1 CAPSULE BY MOUTH DAILY. Refills: 3. polyethylene glycol 3350 with electrolytes (Plenvu oral powder for reconstitution) Prior to colonoscopy.. Refills: 0. psyllium (Metamucil) rosuvastatin (rosuvastatin 10 mg Tab) TAKE 1 TABLET BY MOUTH DAILY. Refills: 3. sotalol (sotalol 80 mg Tab) 0.5 tab By Mouth 2 times a day. sucralfate (sucralfate 1 g Tab) tizanidine (tiZANidine 4 mg Tab) 1 Tablets By Mouth every day. zonisamide (zonisamide 25 mg Cap) 1 Capsules By Mouth 2 times a day. PATIENT EDUCATION INFORMATION Instructions: Upper Endoscopy, Adult, Care After After the procedure, it is common to have a sore throat. It is also common to have: ? Mild stomach pain or discomfort. ? Bloating. ? Nausea. Follow these instructions at home: The instructions below may help you care for yourself at home. Your health care provider may give you more instructions. If you have questions, ask your health care provider. ? If you were given a sedative during the procedure, it can affect you for several hours. Do not drive or operate machinery until your health care provider says that it is safe. ? If you will be going home right after the procedure, plan to have a responsible adult: ? Take you home from the hospital or clinic. You will not be allowed to drive. ? Care for you for the time you are told. ? Follow (more content not included)... Normal [facility] Office Visiton 04-14-2023 Follow-up visit [id number] Yaritza [address] P 1940 M Date Provider Department Center 04/14/2023 Jean Paul-MARGARET ARELLANO GILA Mosley Family History Problem Relation Age of Onset Coronary artery disease Mother Kidney disease Mother Heart failure Mother Family Status - Relation Status Age at Mother Level of Service:40189 [place] OFFICE/OUTPATIENT ESTABLISHED LOW MDM 20-29 MIN Normal [facility] Consultation Noteon 04-13-20 23 Consultation Note [id number]#1.00 TIFF Normal [facility] Physician Referralon 023 Physician Referral [id number] FF Normal [facility] Physician Referralon 023 Physician Referral [id number] TIFF Normal [facility] Physician Referral [id number]#1.00T IFF Normal [facility] CNPNon 04-05-2023 CNPN Telephone ([id number]) JEREMIE BENNETT ([id number]) 1940 M Date Time Provider Department 04/05/23 VAISHALI PRINGLE [id number] During your visit today, we recorded the following information about you: Lolly Dumont 04/05/2023 9:55 AM Signed Received records from [facility]. Reports for imaging listed below scanned. Images pushed through 09/27/2019 US Right Upper Quad 03/31/2020 CT ABD/PEL US Right Upper Quad [facility] MRI Abdomen 02/22/2023 US Soft Tissue Head AND Neck Received many misc. labs AND ER reports Operative Note AND pathology from Laparoscopic Cholecystectomy Patient seen 04/01, please review, thank you! Allergies As of Date: 04/05/2023 Noted Allergy Reaction ADHESIVE TAPE-SILICONES 01/19/2019 2 - Rash NIACIN 01/19/2019 9 - Itching 16 - Unknown Date Reviewed: 04/01/2023 Reviewed by: Debby Holland MA - Fully Assessed Reason for Visit: Received Outside Medical Records [[id number]] Primary Visit Diagnosis:IPMN (intraductal papillary mucinous neoplasm) [D49.0] Order(s):GI TUMOR BOARD [facility] [APPT42] Order #: [id number]: 1 FUTURE Prescriptions as of 04/06/2023 - isosorbide mononitrate ER (IMDUR) 30 mg 24 hr tablet Take 30 mg by mouth. - clopidogrel (PLAVIX) 75 mg tablet - furosemide (LASIX) 20 mg tablet Take 20 mg by mouth. - fluticasone (FLONASE) 50 mcg/actuation nasal spray 1 [place]. - omeprazole (PRILOSEC) 40 mg capsule Take 40 mg by mouth. - amLODIPine (NORVASC) 5 mg tablet Take 5 mg by mouth. - irbesartan (AVAPRO) 300 mg tablet Take 300 mg by mouth. - sotalol (BETAPACE) 80 mg tablet Take 80 mg by mouth. - metFORMIN (GLUCOPHAGE) 500 mg tablet Take 500 mg by mouth. - rosuvastatin (CRESTOR) 10 mg tablet Take 10 mg by mouth. - tiZANidine HCl (ZANAFLEX) 4 mg capsule Take 4 mg by mouth. - zonisamide (ZONEGRAN) 25 mg capsule - latanoprost (XALATAN) 0.005 % ophthalmic solution 1 Drop daily at bedtime. - sucralfate (CARAFATE) 1 gram tablet Take 1 g by mouth. - loperamide HCl (IMODIUM) 2 mg tab Take 2 mg by mouth. - gabapentin (NEURONTIN) 600 mg tablet Take 1 tablet by mouth. - zolpidem (AMBIEN) 5 mg tablet Take 5 mg by mouth. - glimepiride (AMARYL) 2 mg tablet Take 2 mg by mouth. - aspirin, enteric coated (ASPIRIN, ENTERIC COATED) 81 mg EC tablet Take 81 mg by mouth. - acetaminophen 325 mg-caffeine 40 mg-butalbital 50 mg (FIORICET) per tablet Take 1 tablet by mouth every 4 hours as needed. Problem List As Of Date: 04/05/2023 (None) Encounter Status:Closed by LAMONTE COUCH on 04/06/23 Normal [facility] CNOVon 04-01-2023 CNOV Office Visit ([id number] ) JEREMIE BENNETT ([id number]) 1940 M Date Time Provider Department 04/01/23 1:00 PM VAISHALI PRINGLE [id number] During your visit today, we recorded the following information about you: Temperature Pulse Blood pressure Weight 97.1 degrees 70/minute 109/66 75.8 kg Vaishali Pringle MD 04/05/2023 1:34 PM Signed PANCREATIC CYST INITIAL CONSULT PATIENT NAME: Jeremie Bennett REASON FOR CONSULT: Cyst in Pancreas REQUESTING PHYSICIAN: Anjali Ruby CNP DATE of SERVICE: 04/01/2023 TIME of SERVICE: 11:38 AM PCP: No primary care provider on file. This consult was requested by No ref. provider found for evaluation of pancreatic cyst(s) My final recommendations will be communicated to the requesting health care provider by way of the shared medical record or [employer] services. Jeremie Bennett is a 82 year old years old, male who presents with pancreatic cysts . Cysts were incidentally discovered during workup for: Abdominal process: Abdominal symptoms that led to cyst discovery include: none . Has had ongoing intermittent RUQ pain, dull ache. Not in relation to certain foods. No nausea or vomiting. Has had urgency with bowel movements and reports light colored stool. Had colonoscopy prior to 2019 which was normal. Symptoms attributable to cyst: abdominal pain- RUQ, early satiety , dyspepsia , diarrhea, steatorrhea EGD on 04/15 to come Work up: 1. NORMAL No normal scan. 2. First detected: MRI: 02/16/2023 LOCATION: Head: Yes, largest size: 3. Total number of cysts: 1 Body/Tail: Yes, largest size: 8mm. Total number of cysts: 1 SEPTATIONS : No THICK WALLED : No CENTRAL CALCIFICATIONS: No PERIPHERAL CALCIFICATIONS : No MASS COMPONENT: No MURAL NODULE: No COMMUNICATION WITH MPD: Yes MPD: Head: <5 mm Body/Tail: <5 mm Outside Imaging: NO 3. Current image findings: As above EUS No Serum Labs: CEA: Not Done CA19-9: Not Done CHROMOGRANIN A: Not Done PANCREATIC POLYPEPTIDE: Not Done GASTRIN: Not Done PAST MEDICAL HISTORY Active Ambulatory Problems No Active Ambulatory Problems Resolved Ambulatory Problems No Resolved Ambulatory Problems No Additional Past Medical History Pancreatitis: no Colon Cancer: no Prostate cancer: resected Ventricular tachycardia, on plavix, amlodipine CAD, 5 stents Fatty liver T2DM on metformin PAST SURGICAL HISTORY No past surgical history on file. Cholecystectomy in 2019 SOCIAL HISTORY Current tobacco use? NO Current alcohol use? NO FAMILY HISTORY No family history on file. Pancreatitis: no Pancreatic Cancer: yes, cousin Men: no Colon Cancer: no Review of Systems: The remainder of the review of systems is negative. PHYSICAL EXAM: BP 109/66 Pulse 70 Temp 36.2 ?C (97.1 ?F) (Temporal) Wt 75.8 kg (167 lb) SpO2 97% General appearance: Well appearing, alert, in no acute distress, well-hydrated, well nourished. Skin: Skin color, texture, turgor normal, no suspicious rashes or lesions Head: Normocephalic, no masses, lesions, tenderness or abnormalities Eyes: Anicteric sclera. Pupils are equally round and reactive to light. Extraocular movements are intact. Extremities: No deformities, edema, skin discoloration, clubbing or cyanosis. Good capillary refill. Musculoskeletal: No joint swelling, deformity, or tenderness Peripheral pulses: Normal Neuro: Gait normal. Reflexes normal and symmetric. Sensation grossly intact. 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 Patient was worked up for right upper quadrant abdominal pain. He does have a previous history of an uncomplicated cholecystectomy. He underwent imaging followed by an MRI pancreas that noted the pancreatic cyst and he subsequently referred to me. He does not have any history related to his pancreas whatsoever. No history of any malignancies except prostate cancer. He does not have any history of pancreatitis. He does not smoke and he does not consume significant amounts of alcohol. His physical examination is unremarkable I have reviewed his MRI. 2 pancreatic cysts are visualized. 1 in the head of the pancreas which appears to be around 3 mm in size and another 1 in the pancreatic body tail which is approximately 8 mm in size. There is no pancreatic ductal dilatation. There is no complexity within the cyst. Patient with small sidebranch IPMN and no other worrisome features. He additionally does not have any symptoms related to these. At this point have recommended another MRI pancreas in 1 year. No further intervention is required. It is unlikely that his pain is related to these pancreatic cysts. He will continue work-up with his GI re (more content not included)... Normal [facility] Insurance Correspondenceon 1 05-29-2022 Insurance Correspondence [id number]#1.00 TIFF Normal [facility] Physician Referralon 023 Physician Referral [id number] FF Normal [facility] Giardia, Direct, EIAon 03-22 G. lamblia Ag IA Ql (Stl) Negative Invalid Interpretation Code Negative [facility] Comment on above: Result Comment: Perf ormed at: [facility] [address] [id number] PhD Bernice Bower Performed By: #### 3 [id number] ####[facility] [id number] [place] [address] O & P EXAM, ROUTINE, REFLEXo n 03-22-2023 Ova and parasites identified Concentration Nom (Stl) Comment Invalid Interpretation Code [facility] Comment on above: Result Comment: No o va, cysts, or parasites seen. One negative specimen does not rule out the possibility of a parasitic infection. Performed at: [facility] [address] [id number] PhD Bernice Bower Performed By: #### 3 [id number] ####[facility] [id number] [place] [address] O & P Exam, Routineon 2022 Ova and parasites identified LM Nom (Unsp spec) Final report Invalid Interpretation Code [facility] Comment on above: Result Comment: Thes e results were obtained using wet preparation(s) and trichrome stained smear. This test does not include testing for Cryptosporidium parvum, Cyclospora, or Microsporidia. Performed at: [facility] [address] [place], [place] [id number] PhD Bernice Bower Performed By: #### 3 [id number] ####[facility] [id number] [place] [address] Ambulatory Visit Summaryon 1 Ambulatory Visit Summary BENNETTJEREMIE Annabelle :1940 Visit Date:03/10/2023 Ambulatory Visit Instructions Your Diagnosis Abdominal pain Loose stools Pancreatic cyst Chronic GERD Dysphagia Your Care Team Attending Physician - Anjali Ruby CNP Primary Care Physician - Sabino Cooper MD. This Is Your Medications List Contact prescribing physician if questions or concerns APAP/butalbital/caffein e (APAP/butalbital/caffei ne 325 mg-50 mg-40 mg Tab) Misc Prescription (Misc DME Prescription) Misc Prescription (Misc DME Prescription) albuterol (Albuterol (Eqv-ProAir HFA) 90 mcg/inh inhalation aerosol) amlodipine (amLODIPine 5 mg Tab) aspirin (Aspir 81) clopidogrel (Plavix 75 mg Tab) dorzolamide ophthalmic (dorzolamide ophthalmic 2% solution) fluticasone nasal (Flonase 0.05 mg/inh [place]) furosemide (furosemide 20 mg Tab) gabapentin (gabapentin 600 mg Tab) irbesartan (irbesartan 300 mg Tab) isosorbide mononitrate latanoprost ophthalmic loperamide (loperamide 2 mg Tab) metformin (metformin 500 mg ER Tab) multivitamin with minerals (Multivitamin, Therapeutic w/ Minerals) omega-3 polyunsaturated fatty acids (Shubert-3 Fish Oil) omeprazole (omeprazole 40 mg Cap-DR) polyethylene glycol 3350 with electrolytes (Plenvu oral powder for reconstitution) psyllium (Metamucil) rosuvastatin (rosuvastatin 10 mg Tab) sotalol (sotalol 80 mg Tab) sucralfate (sucralfate 1 g Tab) tizanidine (tiZANidine 4 mg Tab) zonisamide (zonisamide 25 mg Cap) Procedures Performed Esophagogastroduodenosc opy (05/20/2020), Angioplasty, Cardiac pacemaker procedure, Cataract, Cholecystectomy, Colonoscopy, Hernia repair, Prostate excision, Tonsillectomy, Vasectomy. Discharge Vitals Temperature (Temporal Artery) 36.2 ?C Heart Rate (Peripheral) 63 Blood Pressure 117/72 Height 163 cm Height 64 in Weight 77.3 kg Weight 170.06 lb BMI 29.09 What to do next Scheduled Follow-Up Appointments Wednesday 1:40 PM EST With: Anjali Ruby CNP Where: [facility] Invalid Interpretation Code [address] [id number] \.br\ Wednesday 1:00 PM EDT \.br\ With:\.br\ Where: [facility] Auto Diffon 03-10-2023 Basophils/100 WBC (Bld) 0.4 % Normal 0.0-2.0 [facility] Comment on above: Order Comment: Order Added by Discern Expert. Performed By: #### 2 308493, 5139098, 6322854, [id number] ####[facility] [address] [place] [address] Basophils/Leukocyt es Auto (Bld) [Pure # fraction] 0.0 E9/L Normal 0.0-0.2 [facility] Comment on above: Order Comment: Order Added by Discern Expert. Performed By: #### 2 651914, 8674936, 5318582, 63215991 ####[address] [place] [address] Eosinophils/100 WBC (Bld) 2.4 % Normal 0.0-8.0 [facility] Comment on above: Order Comment: Order Added by Discern Expert. Performed By: #### 2 720933, 7888537, 6923693, 27263893 ####[address] [address] Eosinophils/Leukoc ytes Auto (Bld) [Pure # fraction] 0.2 E9/L Normal 0.0-0.5 [facility] Comment on above: Order Comment: Order Added by Bruna Expert. Performed By: #### 2 310942, 0239869, 4099516, 91601703 ####[address] [address] Lymphocytes/100 WBC (Bld) 21.9 % Normal 14.0-50.0 [facility] Comment on above: Order Comment: Order Added by Bruna Expert. Performed By: #### 2 100593, 2818092, 1181240, 14153330 ####[address] [address] Lymphocytes/Leukoc ytes Auto (Bld) [Pure # fraction] 1.8 E9/L Normal 1.0-4.0 [facility] Comment on above: Order Comment: Order Added by Discern Expert. Performed By: #### 2 367364, 1110074, 9600587, 50872338 ####[address] [place] [address] Monocytes/100 WBC (Bld) 6.9 % Normal 4.0-14.0 [facility] Comment on above: Order Comment: Order Added by Bruna Expert. Performed By: #### 2 356962, 3982835, 0590003, 29822600 ####[address] [address] Monocytes/Leukocyt es Auto (Bld) [Pure # fraction] 0.6 E9/L Normal 0.2-1.0 [facility] Comment on above: Order Comment: Order Added by Discern Expert. Performed By: #### 2 582885, 3252835, 9815353, 71582177 ####[facility] [address] [place] [address] Neutrophils/100 WBC (Bld) 68.4 % Normal 36.0-75.0 [facility] Comment on above: Order Comment: Order Added by Discern Expert. Performed By: #### 2 183140, 5443800, 1525619, 17028629 ####[facility] [address] [place] [address] Neutrophils/Leukoc ytes Auto (Bld) [Pure # fraction] 5.8 E9/L Normal 2.0-7.5 [facility] Comment on above: Order Comment: Order Added by Discern Expert. Performed By: #### 2 550504, 3938377, 9049259, 33846910 ####[facility] [address] [place] [address] CBC w/ Auto Diffon 3 Erythrocyte distribution width (RBC) [Ratio] 13.9 % Normal 10.9-14.2 [facility] Comment on above: Performed By: #### 2 639932, 0325991, 2691970, 88392728 #### [facility] Laboratory [address] [place] [address] Hematocrit (Bld) [Volume fraction] 43.6 % Normal 37.7-49.0 [facility] Comment on above: Performed By: #### 2 400859, 3984129, 6171560, 84115142 #### [facility] [address] [place] [address] Hemoglobin (Bld) [Mass/Vol] 14.5 g/dL Normal 13.5-17.5 [facility] Comment on above: Performed By: #### 2 792496, 2481654, 8888828, 29252497 #### [facility] [address] [place] [address] MCH (RBC) [Entitic mass] 30.4 pg Normal 27.0-34.0 [facility] Comment on above: Performed By: #### 2 422619, 0760405, 9730741, 15670718 #### [facility] [address] [place] [address] MCHC (RBC) [Mass/Vol] 33.2 g/dL Normal 31.4-36.0 [facility] Comment on above: Performed By: #### 2 411968, 6044847, 6749981, 53726528 #### [facility] [address] [place] [address] MCV (RBC) [Entitic vol] 91.7 fL Normal 80.0-100.0 [facility] Comment on above: Performed By: #### 2 833331, 2617699, 3965345, 45639261 #### [facility] Laboratory [address] [place] [address] Platelet mean volume (Bld) [Entitic vol] 8.6 fL Normal 6.4-10.8 [facility] Comment on above: Performed By: #### 2 770856, 1566701, 5811140, 06654499 #### [facility] [address] [place] [address] Platelets (Bld) [#/Vol] 236.0 E9/L Normal 150.0-500.0 [facility] Comment on above: Performed By: #### 2 603778, 5120735, 4227334, 53239637 #### [facility] [address] [place] [address] RBC (Bld) [#/Vol] 4.8 E12/L Normal 4.3-5.9 [facility] Comment on above: Performed By: #### 2 461376, 6706496, 0131583, 77364964 #### [facility] [address] [place] [address] WBC corrected for nucl RBC Auto (Bld) [#/Vol] 8.4 E9/L Normal 4.0-11.0 [facility] Comment on above: Performed By: #### 2 550941, 2104682, 1844286, 12366415 #### [facility] [address] [place] [address] CDiff PCRon 03-10-2023 CDiff PCR Unable to perform te st due to consistency of stool. C. Difficile testing will only be performed on diarrheal (unformed) stool unless ileus due to C. difficile is expected. Reference: Clinical Practice Guidelines for Clostridium difficile Infection in Adults, Infection and Hospital Epidemiology September 2009, Vol 31, No 5. Normal [facility] Cdiff Specimen Acceptable Unacceptable Normal [facility] Comment on above: Performed By: #### 3 [id number], 12638834, 69395402, 31735638, 61803711, [id number] ####[facility] [address] [place] [address] Order Cancelled YES Normal [facility] Comment on above: Performed By: #### 3 [id number], 39657562, 21758045, 86842513, 43076353, [id number] ####[facility] [address] [place] [address] CHEMISTRYOrdered By: SYSTEM SYSTEM on 03-10-2023 Albumin [Mass/Vol] 4.0 g/dL Normal 3.3 - 5.0 gm/dL [facility] Remisol Albumin/Globulin [Mass ratio] 1.2 {ratio} Normal 1.1 - 2.2 FT Remisol ALP [Catalytic activity/Vol] 65 [iU]/d Normal 21 - 98 Int._Unit/L [facility] Remisol ALT No additional P-5'-P [Catalytic activity/Vol] 17 [iU]/d Normal 6 - 46 Int._Unit/L [facility] Remisol Anion gap [Moles/Vol] 10 mmol/L Normal 6 - 16 mEq/L [facility] Remisol AST [Catalytic activity/Vol] 16 [iU]/d Normal 5 - 43 Int._Unit/L [facility] Remisol Bilirubin [Mass/Vol] 0.4 mg/dL Normal 0.0 - 1.1 mg/dL [facility] Calcium [Mass/Vol] 9.2 mg/dL Normal 8.9 - 11.1 mg/dL [facility] Chloride [Moles/Vol] 108 mmol/L Normal 101 - 111 mmol/L [facility] CO2 [Moles/Vol] 25 mmol/L Normal 21 - 31 mmol/L [facility] Creatinine [Mass/Vol] 1.1 mg/dL Normal 0.5 - 1.3 mg/dL [facility] GFR/1.73 sq M.predicted among non-blacks MDRD (S/P/Bld) [Vol rate/Area] 67 mL/min/1.73 m2 Normal >=59mL/min/1.73 m2 [facility] Chem S Comment on above: Interpretive Data: C hronic kidney disease could be indicated at eGFR's of less than 60 mL/min/1.73m2. Kidney failure is indicated at less than 15 mL/min/1.73m2. Globulin (S) [Mass/Vol] 3.3 g/dL Normal 1.4 - 4.0 gm/dL [facility] Remisol Glucose [Mass/Vol] 136 mg/dL Normal 55 - 199 mg/dL [facility] Remisol Comment on above: Interpretive Data: I f this glucose result represents a fasting glucose, interpretation should refer to the following reference range: 55-99 mg/dL Potassium [Moles/Vol] 3.9 mmol/L Normal 3.5 - 5.3 mmol/L [facility] Remisol Protein [Mass/Vol] 7.3 g/dL Normal 6.0 - 7.8 gm/dL [facility] Remisol Sodium [Moles/Vol] 139 mmol/L Normal 135 - 145 mmol/L FT Remisol Urea nitrogen [Mass/Vol] 20 mg/dL Normal 5 - 21 mg/dL [facility] Remisol Urea nitrogen/Creatinin e [Mass ratio] 18 mg/mg Normal 10 - 20 FT Remisol CMPon 03-10-2023 Albumin [Mass/Vol] 4.0 g/dL Normal 3.3-5.0 [facility] Comment on above: Performed By: #### 2 111026, 7036795, 8302404, 03653202 ####[facility] [address] [place] [address] Albumin/Globulin (S) [Mass conc ratio] 1.2 Normal 1.1-2.2 [facility] Comment on above: Performed By: #### 2 671057, 7292274, 9668520, 59017192 ####[facility] [address] [place] [address] ALP [Catalytic activity/Vol] 65 Int._Unit/L Normal 21-98 [facility] Comment on above: Performed By: #### 2 227527, 1247037, 5867325, 88328497 ####[facility] [address] [place] [address] ALT No additional P-5'-P [Catalytic activity/Vol] 17 Int._Unit/L Normal 6-46 [facility] Comment on above: Performed By: #### 2 447150, 2002685, 8514147, 90096193 ####[facility] [address] [place] [address] Anion gap [Moles/Vol] 10 mmol/L Normal 6-16 [facility] Comment on above: Performed By: #### 2 989496, 9706617, 8323732, 39885348 ####[facility] [address] [place] [address] AST [Catalytic activity/Vol] 16 Int._Unit/L Normal 5-43 [facility] Comment on above: Performed By: #### 2 980684, 3224278, 8310427, 84392045 ####[facility] [address] [place] [address] Bilirubin [Mass/Vol] 0.4 mg/dL Normal 0.0-1.1 [facility] Comment on above: Performed By: #### 2 188069, 7310960, 1376933, 63890593 ####[facility] [address] [place] [address] Calcium [Mass/Vol] 9.2 mg/dL Normal 8.9-11.1 [facility] Comment on above: Performed By: #### 2 324509, 6846907, 9984146, 54771067 ####[facility] [address] [place] [address] Chloride [Moles/Vol] 108 mmol/L Normal 101-111 [facility] Comment on above: Performed By: #### 2 565482, 9962887, 7816182, 28527164 ####[facility] [address] [place] [address] CO2 [Moles/Vol] 25 mmol/L Normal 21-31 [facility] Comment on above: Performed By: #### 2 297735, 8187364, 6542359, 37539638 ####[facility] [address] [place] [address] Creatinine [Mass/Vol] 1.1 mg/dL Normal 0.5-1.3 [facility] Comment on above: Performed By: #### 2 987514, 2362054, 1020911, 03631440 ####[facility] [address] [place] [address] Globulin (S) [Mass/Vol] 3.3 g/dL Normal 1.4-4.0 [facility] Comment on above: Performed By: #### 2 678247, 6729675, 2528206, 50715150 ####[facility] [address] [place] [address] Glucose [Mass/Vol] 136 mg/dL Normal 55-199 [facility] Comment on above: Result Comment: If t his glucose result represents a fasting glucose, interpretation should refer to the following reference range: 55-99 mg/dL Performed By: #### 2 773347, 3060262, 1027090, 73918573 ####[facility] [address] [place] [address] Potassium [Moles/Vol] 3.9 mmol/L Normal 3.5-5.3 [facility] Comment on above: Performed By: #### 2 710747, 2236711, 3412128, 32151364 ####[facility] [address] [place] [address] Protein [Mass/Vol] 7.3 g/dL Normal 6.0-7.8 [facility] Comment on above: Performed By: #### 2 577541, 1006447, 8022907, 23353035 ####[facility] [address] [place] [address] Sodium [Moles/Vol] 139 mmol/L Normal 135-145 [facility] Comment on above: Performed By: #### 2 619367, 1124068, 4098270, 41326644 ####[facility] [address] [place] [address] Urea nitrogen [Mass/Vol] 20 mg/dL Normal 5- [facility] Comment on above: Performed By: #### 2 555379, 8153508, 6392662, 37846527 ####[facility] [address] [place] [address] Urea nitrogen/Creatinin e [Mass ratio] 18 No Units Normal 10- [facility] Comment on above: Performed By: #### 2 728633, 2066072, 1833775, 43876240 ####[facility] [address] [place] [address] Consent for Treatmenton 02-15 Consent for Treatment [id number] IFF Normal [facility] Enteric Panel by PCRon 03-10 C. coli+jejuni+upsali ensis DNA MICHELLE+non-probe Ql (Stl) Not detected Normal [facility] Comment on above: Result Comment: Test ing was performed utilizing reverse recruitment officer (RT), polymerase chain reaction (PCR), and array hybridization to detect specific gastrointestinal microbial nucleic acid gene sequences associated with the following pathogenic bacteria and viruses:Campylobacter Group (composed of C. coli, C. jejuni, and C. maribell), Salmonella species, Shigella species (including S. dysenteriae, S. boydii, S. sonnei and S. flexneri), Vibrio Group (composed of V. cholera and V. parahaemolyticus), Yersinia enterocolitica, Norovirus GI/GII, and Rotavirus A. In addition, EPdetects Shiga toxin 1 gene and Shiga toxin 2 gene virulence markers. Shiga toxin producing E. coli (STEC) typically harbor one or both genes that encode for Shiga toxins 1 and 2. Campylobacter group, Salmonella species, Shigella species, Vibrio group, Rotavirus A, Shiga Toxin 1, Shiga Toxin 2, Norovirus GI/GII, and Yersinia enterocolitica were tested by Verigene nulcleic acid test. Performed By: #### 3 [id number], 13720529, 84466955, 81685879, 14101351, [id number] ####[facility] [address] [place] [address] E. coli stx1+stx2 genes MICHELLE+non-probe Ql (Stl) Negative [facility] Comment on above: Performed By: #### 3 [id number], 74392831, 33738726, 58024491, 71272578, [id number] ####[facility] [address] [place] [address] Enteric Panel by PCR Negative [facility] Enteric Panel Intrl QC Pass [facility] Comment on above: Result Comment: Test ing was performed utilizing reverse recruitment officer (RT), polymerase chain reaction (PCR), and array hybridization to detect specific gastrointestinal microbial nucleic acid gene sequences associated with the following pathogenic bacteria and viruses:Campylobacter Group (composed of C. coli, C. jejuni, and C. maribell), Salmonella species, Shigella species (including S. dysenteriae, S. boydii, S. sonnei and S. flexneri), Vibrio Group (composed of V. cholera and V. parahaemolyticus), Yersinia enterocolitica, Norovirus GI/GII, and Rotavirus A. In addition, EPdetects Shiga toxin 1 gene and Shiga toxin 2 gene virulence markers. Shiga toxin producing E. coli (STEC) typically harbor one or both genes that encode for Shiga toxins 1 and 2. Performed By: #### 3 [id number], 74783811, 48583802, 27926074, 46465243, [id number] ####[facility] [address] [place] [address] Norovirus genogroup I+II RNA MICHELLE+non-probe Ql (Stl) Not detected Normal [facility] Comment on above: Performed By: #### 3 [id number], 27833422, 11252054, 99630929, 93345630, [id number] ####[facility] [address] [place] [address] Rotavirus A RNA MICHELLE+non-probe Ql (Stl) Not detected Normal [facility] Comment on above: Performed By: #### 3 217689098, 65321472, 38101769, 61667295, 84073725, [id number] ####[facility] [address] [place], [place] [address] S. enterica+bongori DNA MICHELLE+non-probe Ql (Stl) Not detected Normal [facility] Comment on above: Result Comment: This test result should be correlated with clinical presentations and medical history by a healthcare provider to determine its clinical significance. Performed By: #### 3 [id number], 48033937, 29782720, 16804724, 63297230, [id number] ####[facility] [address] [address] Shigella species+EIEC invasion plasmid antigen H ipaH gene MICHELLE+non-probe Ql (Stl) Not detected Normal [facility] Comment on above: Performed By: #### 3 [id number], 52937987, 31280683, 92293574, 01271161, [id number] ####[facility] [address] [place] [address] V. cholerae+parahaemo lyticus+vulnificus DNA MICHELLE+non-probe Ql (Stl) Not detected Normal [facility] Comment on above: Performed By: #### 3 [id number], 69621638, 29263863, 67403820, 40535996, 5635923260 ####[facility] [address] [place] [address] Y. enterocolitica DNA MICHELLE+non-probe Ql (Stl) Not detected Normal [facility] Comment on above: Performed By: #### 3 799056125, 45074527, 55905990, 81583726, 84307703, [id number] ####[facility] [address] [place] [address] Fecal WBC Lactoferrinon 02-15 Fecal WBC Lactoferrin Negative Normal Negative [facility] Comment on above: Result Comment: The semi-quantitative detection of elevated levels of fecal lactoferrin is a marker for fecal leukocytes and an indication of intestinal inflammation. Performed By: #### 3 [id number], 50538924, 00688962, 04052282, 45618039, [id number] ####[facility] [address] [place] [address] Gastroenterology Office/Clin ic Noteon 03-10-2023 Gastroenterology Office/Clinic Note Chief Complaint Abdominal pain, loose stools. HPI Staff This is a 82 year old male who presents today for a sick call for complaints of queasy stomach. History of Present Illness Patient is a 82-year-old male who presents for further evaluation of abdominal pain all over. Patient was previously evaluated 02/25/2023 and has history of lower abdominal pain. Patient with previous reports of COVID-19 in September 2022 and at that time had noticed more constipation and fecal urgency. Patient also previously reported having RUQ abdominal pain for years that was sharp and occur 2-3 times a month. Patient also with history of dysphagia. Patient with history of pacemaker, CAD with stents and is taking Plavix. Patient reported during most recent visit with ct 02/25/2023 that he was having RUQ pain described as sharp/achy 3-4 times a week that was worse with coughing or sneezing. He reported acid reflux was well controlled with omeprazole 40 mg daily. Patient was referred to [facility] regarding pancreatic cyst. Had discussed repeating EGD to evaluate for healing of ulcers and patient declined during previous evaluation. Patient also reported irregular bowel habits with 1-2 formed bowel movements, then 1 loose bowel movement with fecal urgency. At times was not having a bowel movement for 1 to 2 days. Patient was educated regarding fiber supplementation. previous EGD 05/[address] Larsen that revealed esophageal inlet patch, 2 diminutive clean-based ulcers in antrum, mild antral gastritis, subcentimeter gastric polyps, biopsy of stomach revealed moderate chronic active gastritis, negative for intestinal metaplasia, stomach polyp biopsy revealed fundic gland polyp. Review of records from previous evaluation with Dr. Larsen from 04/2020 indicated patient with history of pacemaker, CAD with stents and is taking Plavix. Patient with family history of GI cancer? paternal grandfather with stomach cancer, cousin with pancreatic cancer. Note indicated patient had previous colonoscopy in 2018 that revealed diverticulosis and hemorrhoids. Patient brought outside records from outside facility: [facility] 03/31/2020 CT A/P revealed prominent amount of fluid in colon suggesting diarrhea, diverticulosis, Patient had previous ultrasound of RUQ 09/2019 at outside facility revealed 0.7cm pancreatic cyst and cholelithiasis. Patient reports hx. cholecystectomy in 2019. Previous labs at outside facility [address] revealed normal BUN, normal creatinine, normal LFTs, normal H&H. Outside record from [facility] from 04/01/2020 indicated patient had RUQ ultrasound that revealed no acute process, fatty change in liver. Ultrasound of abdomen 12/17/2022 revealed 6 mm pancreatic cyst and radiology recommended MRI with contrast or MRCP in 2 years. Patient also previously reported during visit with me that RUQ pain was worse with coughing or sneezing. Patient was ordered MRCP as he reported he was able to have completed at outside facility given his history of cardiac pacemaker. Patient was also educated to start fiber supplementation daily. MRCP completed at [facility] 02/16/2023 showed 3 mm cystic lesion in pancreatic body. I recommended for patient to be referred to [facility] for further evaluation regarding and patient was referred. During today's visit, patient reports having generalized abdominal pain like he has had before, started again over the last 6 days. Describes pain in abdomen as achy and occurs daily. He explains abdominal pain occurs immediately after eating. Abdominal pain is worse after eating. He reports acid reflux is well-controlled with omeprazole 40mg daily. He reports stool is primarily loose in consistency over the last 6 days. Is having chills over the last 2-3 days. He reports dysphagia has improved. Is taking metamcuil 1 capsule daily. Denies black/bloody stools, nausea/vomiting, fevers, and denies having any other GI complaints. Review of Systems ROS - Provider Constitutional: no fever, yes chills. Skin: no Jaundice. ENMT: Denies acid reflux. Respiratory: no shortness of breath. Cardiovascular: no chest pain. Gastrointestinal: no nausea, no vomiting, yes loose stools, no GI bleeding. Physical Exam Vitals & Measurements T: 36.2 ?C(Temporal Artery) HR: 63(Peripheral) BP: 117/72 HT: 64 in HT: 163 cm WT: 77.3 kg WT: 170.06 lb BMI: 29.09 General: Well developed, well nourished, in no acute distress Head: Normocephalic/atraumati c Lungs: Normal respiratory effort and clear to auscultation Cardio: Regular rate and rhythm, normal S1 and S2, no murmur, no rub Abdomen: Soft, non-distended, tenderness in all 4 abdominal quadrants, bilaterally. Normoactive bowel sounds present in all 4 abdominal quadrants, bilaterally. Mental Status: Alert and oriented x3. Normal mood and affect Assessment/Plan 1. Abdominal pain (R10.9: Unspecified abdominal pain) Is having generalized abdominal pain over the last 6 days- occurring daily. Worse aft (more content not included)... Normal [facility] Comment on above: Result Comment: Elec tronically Signed By: Flori GARZA, Anjali Omalley\.marco a\Date and Time Signed: 03/10/23 09:20 EDT HEMATOLOGYOrdered By: SYSTEM SYSTEM on 03-10-2023 Basophils/100 WBC (Bld) 0.4 % Normal 0.0 - 2.0 % [facility] Basophils/Leukocyt es Auto (Bld) [Pure # fraction] 0.0 E9/L Normal 0.0 - 0.2 E9/L [facility] Eosinophils/100 WBC (Bld) 2.4 % Normal 0.0 - 8.0 % [facility] Eosinophils/Leukoc ytes Auto (Bld) [Pure # fraction] 0.2 E9/L Normal 0.0 - 0.5 E9/L [facility] Lymphocytes/100 WBC (Bld) 21.9 % Normal 14.0 - 50.0 % [facility] Lymphocytes/Leukoc ytes Auto (Bld) [Pure # fraction] 1.8 E9/L Normal 1.0 - 4.0 E9/L [facility] Monocytes/100 WBC (Bld) 6.9 % Normal 4.0 - 14.0 % [facility] Monocytes/Leukocyt es Auto (Bld) [Pure # fraction] 0.6 E9/L Normal 0.2 - 1.0 E9/L [facility] Neutrophils/100 WBC (Bld) 68.4 % Normal 36.0 - 75.0 % [facility] Neutrophils/Leukoc ytes Auto (Bld) [Pure # fraction] 5.8 E9/L Normal 2.0 - 7.5 E9/L [facility] HEMATOLOGYOrdered By: Ethel Peters on 03-10-2023 Erythrocyte distribution width (RBC) [Ratio] 13.9 % Normal 10.9 - 14.2 % [facility] Hematocrit (Bld) [Volume fraction] 43.6 % Normal 37.7 - 49.0 % [facility] Hemoglobin (Bld) [Mass/Vol] 14.5 g/dL Normal 13.5 - 17.5 gm/dL [facility] MCH (RBC) [Entitic mass] 30.4 pg Normal 27.0 - 34.0 pg [facility] MCHC (RBC) [Mass/Vol] 33.2 g/dL Normal 31.4 - 36.0 gm/dL [facility] MCV (RBC) [Entitic vol] 91.7 fL Normal 80.0 - 100.0 fL [facility] Platelet mean volume (Bld) [Entitic vol] 8.6 fL Normal 6.4 - 10.8 fL [facility] Platelets (Bld) [#/Vol] 236.0 E9/L Normal 150.0 - 500.0 E9/L [facility] RBC (Bld) [#/Vol] 4.8 E12/L Normal 4.3 - 5.9 E12/L [facility] WBC corrected for nucl RBC Auto (Bld) [#/Vol] 8.4 E9/L Normal 4.0 - 11.0 E9/L [facility] HemeAutoSS MICRO OTHER TESTSOrdered By: Elba Felipe on 03-10-2023 Fecal WBC Lactoferrin Negative 3 (03/10/23 12:45 PM) Normal Negative [facility] Man Sero Comment on above: Interpretive Data: T renée semi-quantitative detection of elevated levels of fecal lactoferrin is a marker for fecal leukocytes and an indication of intestinal inflammation. Patient Educationon 03-10-20 Patient Education Gastroenterology Abdominal Pain, Adult Pain in the abdomen (abdominal pain) can be caused by many things. Often, abdominal pain is not serious and it gets better with no treatment or by being treated at home. However, sometimes abdominal pain is serious. Your health care provider will ask questions about your medical history and do a physical exam to try to determine the cause of your abdominal pain. Follow these instructions at home: Medicines ? Take jihh-dpq-dmdiunl and prescription medicines only as told by your health care provider. ? Do not take a laxative unless told by your health care provider. General instructions ? Watch your condition for any changes. ? Drink enough fluid to keep your urine pale yellow. ? Keep all follow-up visits as told by your health care provider. This is important. Contact a health care provider if: ? Your abdominal pain changes or gets worse. ? You are not hungry or you lose weight without trying. ? You are constipated or have diarrhea for more than 2?3 days. ? You have pain when you urinate or have a bowel movement. ? Your abdominal pain wakes you up at night. ? Your pain gets worse with meals, after eating, or with certain foods. ? You are vomiting and cannot keep anything down. ? You have a fever. ? You have blood in your urine. Get help right away if: ? Your pain does not go away as soon as your health care provider told you to expect. ? You cannot stop vomiting. ? Your pain is only in areas of the abdomen, such as the right side or the left lower portion of the abdomen. Pain on the right side could be caused by appendicitis. ? You have bloody or black stools, or stools that look like tar. ? You have severe pain, cramping, or bloating in your abdomen. ? You have signs of dehydration, such as: ? Dark urine, very little urine, or no urine. ? Cracked lips. ? Dry mouth. ? Sunken eyes. ? Sleepiness. ? Weakness. ? You have trouble breathing or chest pain. Summary ? Often, abdominal pain is not serious and it gets better with no treatment or by being treated at home. However, sometimes abdominal pain is serious. ? Watch your condition for any changes. ? Take vlof-exa-nuqgalx and prescription medicines only as told by your health care provider. ? Contact a health care provider if your abdominal pain changes or gets worse. ? Get help right away if you have severe pain, cramping, or bloating in your abdomen. This information is not intended to replace advice given to you by your health care provider. Make sure you discuss any questions you have with your health care provider. Document Revised: 06/21/2020 Document Reviewed: 09/11/2019 [employer] Patient Education ? 2022 Vocation. Normal [facility] eGFRon 03-10-2023 GFR/1.73 sq M.predicted among non-blacks MDRD (S/P/Bld) [Vol rate/Area] 67 mL/min/1.73 m2 Normal >=59 [facility] Comment on above: Order Comment: Order added by Discern Expert. Result Comment: Neuroscience Director Na sergo kidney disease could be indicated at eGFR's of less than 60 mL/min/1.73m2. Kidney failure is indicated at less than 15 mL/min/1.73m2. Performed By: #### 2 [id number] ####[facility] [id number] [place] [address] Physician Referralon 023 Physician Referral [id number] [phone] [id number] IFF Normal [facility] Ambulatory Visit Summaryon 1 Ambulatory Visit Summary JEREMIE BENNETT :1940 Visit Date:02/25/2023 Ambulatory Visit Instructions Your Diagnosis Pancreatic cyst RUQ pain Chronic GERD Irregular bowel habits Dysphagia Screen for colon cancer Your Care Team Attending Physician - Flori GARZA, Anjali Omalley Primary Care Physician - Sabino Cooper MD This Is Your Medications List Contact prescribing physician if questions or concerns APAP/butalbital/caffein e (APAP/butalbital/caffei ne 325 mg-50 mg-40 mg Tab) Misc Prescription (Misc DME Prescription) Misc Prescription (Misc DME Prescription) albuterol (Albuterol (Eqv-ProAir HFA) 90 mcg/inh inhalation aerosol) amlodipine (amLODIPine 5 mg Tab) aspirin (Aspir 81) clopidogrel (Plavix 75 mg Tab) dorzolamide ophthalmic (dorzolamide ophthalmic 2% solution) fluticasone nasal (Flonase 0.05 mg/inh [place]) furosemide (furosemide 20 mg Tab) gabapentin (gabapentin 600 mg Tab) irbesartan (irbesartan 300 mg Tab) isosorbide mononitrate latanoprost ophthalmic loperamide (loperamide 2 mg Tab) metformin (metformin 500 mg ER Tab) multivitamin with minerals (Multivitamin, Therapeutic w/ Minerals) omega-3 polyunsaturated fatty acids (Shubert-3 Fish Oil) omeprazole (omeprazole 40 mg Cap-DR) polyethylene glycol 3350 with electrolytes (Plenvu oral powder for reconstitution) rosuvastatin (rosuvastatin 10 mg Tab) sotalol (sotalol 80 mg Tab) sucralfate (sucralfate 1 g Tab) tizanidine (tiZANidine 4 mg Tab) zonisamide (zonisamide 25 mg Cap) Procedures Performed Esophagogastroduodenosc opy (05/20/2020), Angioplasty, Cardiac pacemaker procedure, Cataract, Cholecystectomy, Colonoscopy, Hernia repair, Prostate excision, Tonsillectomy, Vasectomy. Discharge Vitals Temperature (Temporal Artery) 36.7 ?C Heart Rate (Peripheral) 85 Respiratory Rate 16 Blood Pressure 122/75 Height 163 cm Height 64 in Weight 78.8 kg Weight 173.36 lb BMI 29.66 What to do next Scheduled Follow-Up Appointments Wednesday 1:40 PM EST With: Anjali Ruby CNP Where: [facility] Invalid Interpretation Code [address] [place] [address]- \.br\ Wednesday 1:00 PM EDT \.br\ With:\.br\ Where: [facility] Gastroenterology Office/Clin ic Noteon 02-25-2023 Gastroenterology Office/Clinic Note Chief Complaint 2 month follow up HPI Staff This is a 82 year old male who presents today for a 2 month follow up. History of Present Illness Patient is a 82-year-old male who presents for follow-up. Patient presents with his today. Patient was previously evaluated 01/12/2023 and has history of lower abdominal pain. Patient had previously reported during visit with me that he had COVID-19 in September 2022 and had noticed more constipation and fecal urgency. He also previously reported having 1 formed bowel movement daily. He also reported occasional hard stools. He indicated he was having RUQ abdominal pain for years described as sharp that occurred 2-3 times a month. He indicated his acid reflux was well controlled with omeprazole 40 mg daily. He also indicated having difficulty swallowing over the last 10 to 12 years with primarily solids and at times liquids and felt like food was getting stuck in his esophagus. Review of records from previous evaluation with Dr. Larsen from 04/2020 indicated patient with history of pacemaker, CAD with stents and is taking Plavix. Patient had previous EGD 05/[address] Larsen that revealed esophageal inlet patch, 2 diminutive clean-based ulcers in antrum, mild antral gastritis, subcentimeter gastric polyps, biopsy of stomach revealed moderate chronic active gastritis, negative for intestinal metaplasia, stomach polyp biopsy revealed fundic gland polyp. Review of records from previous evaluation with Dr. Larsen from 04/2020 indicated patient with history of pacemaker, CAD with stents and is taking Plavix. Patient with family history of GI cancer? paternal grandfather with stomach cancer, cousin with pancreatic cancer. Note indicated patient had previous colonoscopy in 2018 that revealed diverticulosis and hemorrhoids. Patient brought outside records from outside facility: [facility] 03/31/2020 CT A/P revealed prominent amount of fluid in colon suggesting diarrhea, diverticulosis, Patient had previous ultrasound of RUQ 09/2019 at outside facility revealed 0.7cm pancreatic cyst and cholelithiasis. Patient reports hx. cholecystectomy in 2019. Outside record from [facility] from 04/01/2020 indicated patient had RUQ ultrasound that revealed no acute process, fatty change in liver. Ultrasound of abdomen 12/17/2022 revealed 6 mm pancreatic cyst and radiology recommended MRI with contrast or MRCP in 2 years. Patient also previously reported during visit with me that RUQ pain was worse with coughing or sneezing. Patient was ordered MRCP as he reported he was able to have completed at outside facility given his history of cardiac pacemaker. Patient was also educated to start fiber supplementation daily. MRCP completed at [facility] 02/16/2023 showed 3 mm cystic lesion in pancreatic body. I recommended for patient to be referred to [facility] for further evaluation regarding. Patient is here to discuss today. During today's visit, patient reports he is still having RUQ pain described as sharp/achy and occurs 3-4 times a week- is worse with coughing or sneezing. Has been having RUQ pain for the last 2-3 years. He explains he is currently having 1-2 formed BMs, then will have 1 loose BM with fecal urgency. At times, may not have a BM for 1-2 days. Is having difficulty swallowing solids and at times liquids that is reportedly occurring less often. He reports acid reflux is well-controlled with omeprazole 40mg daily and has rare occasions of acid reflux. Denies NSAID use. Denies black/bloody stools, fevers/chills, nausea/vomiting, and denies having any other GI complaints. Review of Systems PHQ Score Initial Depression Screen Score: 0 ROS - Provider Constitutional: no fever, no chills. Skin: no Jaundice. ENMT: Denies dysphagia and heartburn. Respiratory: no shortness of breath. Cardiovascular: no chest pain. Gastrointestinal: no nausea, no vomiting, no diarrhea, no GI bleeding. Physical Exam Vitals & Measurements T: 36.7 ?C(Temporal Artery) HR: 85(Peripheral) RR: 16 BP: 122/75 HT: 64 in HT: 163 cm WT: 78.8 kg WT: 173.36 lb BMI: 29.66 General: Well developed, well nourished, in no acute distress Head: Normocephalic/atraumati c Lungs: Normal respiratory effort and clear to auscultation Cardio: Regular rate and rhythm, normal S1 and S2, no murmur, no rub Abdomen: Soft, non-distended, non-tender. Normoactive bowel sounds present in all 4 abdominal quadrants, bilaterally. Mental Status: Alert and oriented x3. Normal mood and affect Assessment/Plan 1. Pancreatic cyst (K86.2: Cyst of pancreas) Ultrasound of abdomen 12/17/2022 revealed 6 mm pancreatic cyst and radiology recommended MRI with contrast or MRCP in 2 years. MRCP completed at [facility] 02/16/2023 showed 3 mm cystic lesion in pancreatic body. I recommended for patient to be referred to [facility] for further evaluation regarding. Family history of GI cancer? paternal grandfather with stomach cancer, cousin with p (more content not included)... Normal [facility] Comment on above: Result Comment: Elec tronically Signed By: Anjali Ruby CNP\.br\Date and Time Signed: 02/25/23 14:04 EDT Patient Educationon 02-26-20 Patient Education ENT Dysphagia Dysphagia is trouble swallowing. This condition occurs when solids and liquids stick in a person's throat on the way down to the stomach, or when food takes longer to get to the stomach than usual. You may have problems swallowing food, liquids, or both. You may also have pain while trying to swallow. It may take you more time and effort to swallow something. What are the causes? This condition may be caused by: ? Muscle problems. These may make it difficult for you to move food and liquids through the esophagus, which is the tube that connects your mouth to your stomach. ? Blockages. You may have ulcers, scar tissue, or inflammation that blocks the normal passage of food and liquids. Causes of these problems include: ? Acid reflux from your stomach into your esophagus (gastroesophageal reflux). ? Infections. ? Radiation treatment for cancer. ? Medicines taken without enough fluids to wash them down into your stomach. ? Stroke. This can affect the nerves and make it difficult to swallow. ? Nerve problems. These prevent signals from being sent to the muscles of your esophagus to squeeze (contract) and move what you swallow down to your stomach. ? Globus pharyngeus. This is a common problem that involves a feeling like something is stuck in your throat or a sense of trouble with swallowing, even though nothing is wrong with the swallowing passages. ? Certain conditions, such as cerebral palsy or Parkinson's disease. What are the signs or symptoms? Common symptoms of this condition include: ? A feeling that solids or liquids are stuck in your throat on the way down to the stomach. ? Pain while swallowing. ? Coughing or gagging while trying to swallow. Other symptoms include: ? Food moving back from your stomach to your mouth (regurgitation). ? Noises coming from your throat. ? Chest discomfort when swallowing. ? A feeling of fullness when swallowing. ? Drooling, especially when the throat is blocked. ? Heartburn. How is this diagnosed? This condition may be diagnosed by: ? Barium swallow X-ray. In this test, you will swallow a white liquid that sticks to the inside of your esophagus. X-ray images are then taken. ? Endoscopy. In this test, a flexible telescope is inserted down your throat to look at your esophagus and your stomach. ? CT scans or an MRI. How is this treated? Treatment for dysphagia depends on the cause of this condition: ? If the dysphagia is caused by acid reflux or infection, medicines may be used. These may include antibiotics or heartburn medicines. ? If the dysphagia is caused by problems with the muscles, swallowing therapy may be used to help you strengthen your swallowing muscles. You may have to do specific exercises to strengthen the muscles or stretch them. ? If the dysphagia is caused by a blockage or mass, procedures to remove the blockage may be done. You may need surgery and a feeding tube. You may need to make diet changes. Ask your health care provider for specific instructions. Follow these instructions at home: Medicines ? Take ualm-frc-dlcwvtc and prescription medicines only as told by your health care provider. ? If you were prescribed an antibiotic medicine, take it as told by your health care provider. Do not stop taking the antibiotic even if you start to feel better. Eating and drinking ? Make any diet changes as told by your health care provider. ? Work with a diet and livestock nutritionist (dietitian) to create an eating plan that will help you get the nutrients you need in order to stay healthy. ? Eat soft foods that are easier to swallow. ? Cut your food into small pieces and eat slowly. Take small bites. ? Eat and drink only when you are sitting upright. ? Do not drink alcohol or caffeine. If you need help quitting, ask your health care provider. General instructions ? Check your weight every day to make sure you are not losing weight. ? Do not use any products that contain nicotine or tobacco. These products include cigarettes, chewing tobacco, and vaping devices, such as e-cigarettes. If you need help quitting, ask your health care provider. ? Keep all follow-up visits. This is important. Contact a health care provider if: ? You lose weight because you cannot swallow. ? You cough when you drink liquids. ? You cough up partially digested food. Get help right away if: ? You cannot swallow your saliva. ? You have shortness of breath, a fever, or both. ? Your voice is hoarse and you have trouble swallowing. These symptoms may represent a serious problem that is an emergency. Do not wait to see if the symptoms will go away. Get medical help right away. Call your local emergency services (911 in the [place] Do not drive yourself to the hospital. Summary ? Dysphagia is trouble swallowing. This condition occurs when solids and liquids stick in a person's throa (more content not included)... Normal [facility] RAD - MRI Reporton 3 RAD - MRI Report [id number] IFF Normal [facility] MR abdomen wo conon 02-17-20 23 MR abdomen wo con [place] [address] MRI Report Signed Patient: Jeremie Bennett MR#: [id number] : 1940 Acct:[id number] Age/Sex: 82 / M ADM Date: 02/16/23 Loc: Room: Type: [facility] Attending Dr: Anjali Ruby [employer] Copies to: Anjali Ruby CNP Ordering Provider: Anjali Ruby CNP Date of Service: 02/16/23 MR/MR abdomen wo con: K86.2 MRI OF THE ABDOMEN WITHOUT CONTRAST: CLINICAL HISTORY: Right upper quadrant pain for 3 years. COMPARISON: None TECHNIQUE: Multisequence, multiplanar imaging of the abdomen was obtained without the use of IV contrast. FINDINGS: Suboptimal evaluation due to lack of IV contrast. The liver appears normal in contour without evidence of steatosis or intrahepatic bile duct dilatation. No focal T2 abnormality is seen to suggest underlying mass. Gallbladder has been removed. No CBD dilatation is noted. No pancreatic divisum is seen. No pancreatic duct dilatation is noted. 3 mm cyst involving the pancreatic body best seen on series 3 image 16. Spleen appears unremarkable. Adrenal glands are unremarkable. Kidneys appear unremarkable. Abdominal aorta appears normal in caliber. No bulky lymphadenopathy or ascites. No pleural effusion. MR/MR abdomen wo con IMPRESSION: NO ACUTE FINDINGS. 3 MM CYSTIC LESION INVOLVING THE PANCREATIC BODY. DIFFERENTIAL CONSIDERATIONS INCLUDE SEQUELA OF PRIOR PANCREATITIS SUCH A SMALL PSEUDOCYST OR POSSIBLY CYSTIC NEOPLASM SUCH A IPMN. REPEAT MRI IN 2 YEARS IS SUGGESTED. Impression dictated by: Mario Urias Jr., D.OAidan02/16/2023 12:22 PM Dictation Location: [facility] Transcribed By: [facility] 02/16/23 1222 Dictated By: Mario Urias Jr, DO 02/16/23 1220 Signed By: 02/16/23 1222 [facility] Family Medicine Office/Clini c Noteon 02-15-2023 Family Medicine Office/Clinic Note HPI Staff Jeremie is a 82 year male presenting for acute visit Onset: 1 day ago noticed lump Location: right side of neck Characteristics: has been itching right side of neck for about a week Aggravated by: turning head to the right and touching area , aching pain rates 3/10 Relieved by: Questions/Concerns: none History of Present Illness pt presents today with lump that is painful on right side of neck Review of Systems PHQ Score Initial Depression Screen Score: 0 ROS - Provider Constitutional: no fever, no chills, no sweats, no fatigue Respiratory: no shortness of breath, no cough, no orthopnea, no wheezing. Cardiovascular: no chest pain, no palpitations, no edema. Neurologic: no headache, no dizziness, no numbness, no weakness. lump on right side of neck is painful Physical Exam Vitals & Measurements HR: 68(Peripheral) RR: 18 BP: 112/72 SpO2: 93% HT: 64 in HT: 163 cm WT: 78.38 kg WT: 172.436 lb BMI: 29.5 General: alert, no acute distress ENMT: oral mucosa moist, no pharyngeal erythema or exudate Cardiovascular: regular rate and rhythm, normal peripheral perfusion Respiratory: Lungs CTA, respirations non labored Extremities: no deformity, no trauma Neurological: oriented x 4, LOC appropriate for age, CN II-XII intact, motor strength equal & normal bilaterally, speech normal right side of neck lymph node swollen and painful Assessment/Plan 1. Lump on neck (R22.1: Localized swelling, mass and lump, neck) pt presents today with painful lump on right side of neck. appears to be a swollen lymph node. will treat with antibiotics. pt instructed to hold off on schedule u/s until meds are complete. if lump still there and painful after meds, he will call to schedule u/s Ordered: triamcinolone, 40 mg = 1 mL, Injection, IntraMuscular, Once, Stop date 02/15/23 12:07:00 EDT, Routine, Start date 02/15/23 12:07:00 EDT, 02/15/23 12:07:00 EDT Body Mass Index (BMI) documented 3008F Current tobacco non-user 1036F Depression Screening Negative 3352F Patient screen for fall risk: no falls in last year or 1 fall with no injury in last year 1101F 2. Right otitis media (H66.91: Otitis media, unspecified, right ear) right otitis media noted on exam will send Augmentin rx to pharmacy Ordered: triamcinolone, 40 mg = 1 mL, Injection, IntraMuscular, Once, Stop date 02/15/23 12:07:00 EDT, Routine, Start date 02/15/23 12:07:00 EDT, 02/15/23 12:07:00 EDT Body Mass Index (BMI) documented 3008F Current tobacco non-user 1036F Depression Screening Negative 3352F Patient screen for fall risk: no falls in last year or 1 fall with no injury in last year 1101F 3. Swollen lymph nodes (R59.9: Enlarged lymph nodes, unspecified) right lymph node is swollen and tender to touch. kenlaog injection given Ordered: triamcinolone, 40 mg = 1 mL, Injection, IntraMuscular, Once, Stop date 02/15/23 12:07:00 EDT, Routine, Start date 02/15/23 12:07:00 EDT, 02/15/23 12:07:00 EDT Body Mass Index (BMI) documented 3008F Current tobacco non-user 1036F Depression Screening Negative 3352F Patient screen for fall risk: no falls in last year or 1 fall with no injury in last year 1101F 4. BMI 29.0-29.9,adult (Z68.29: Body mass index [BMI] 29.0-29.9, adult) bmi education complete Ordered: triamcinolone, 40 mg = 1 mL, Injection, IntraMuscular, Once, Stop date 02/15/23 12:07:00 EDT, Routine, Start date 02/15/23 12:07:00 EDT, 02/15/23 12:07:00 EDT Body Mass Index (BMI) documented 3008F Current tobacco non-user 1036F Depression Screening Negative 3352F Patient screen for fall risk: no falls in last year or 1 fall with no injury in last year 1101F 5. Non-smoker (Z78.9: Other specified health status) continue not smoking Ordered: triamcinolone, 40 mg = 1 mL, Injection, IntraMuscular, Once, Stop date 02/15/23 12:07:00 EDT, Routine, Start date 02/15/23 12:07:00 EDT, 02/15/23 12:07:00 EDT Body Mass Index (BMI) documented 3008F Current tobacco non-user 1036F Depression Screening Negative 3352F Patient screen for fall risk: no falls in last year or 1 fall with no injury in last year 1101F Orders: amoxicillin-clavulanate , 1 tab(s), Oral, q12hr for 7 day(s), 14 tab(s), Refill(s) 0, [facility] #[id number], 163, cm, 02/15/23 11:50:00 EDT, Height/Length Dosing, 78.4, kg, 02/15/23 11:50:00 EDT, Weight Dosing Follow-up No qualifying data available Problem List/Past Medical History Ongoing Abdominal pain BMI 30.0-30.9,adult COVID-19 Diabetic autonomic neuropathy associated with type 2 diabetes mellitus Dysphagia Fecal urgency FH: stomach cancer GERD with apnea Glaucoma Hard stool Hypercholesterolemia Leaking of urine Lower abdominal pain Lump on neck Mixed incontinence Numbness of right hand Osteoarthritis Pacemaker Pancreatic cyst Personal history of prostate cancer Primary hypertension Prostatitis PUD (peptic ulcer disease) Right flank pain, chronic Right otitis media Rig (more content not included)... Normal [facility] Comment on above: Result Comment: Elec tronically Signed By: Yajaira Dunn\Date and Time Signed: 02/15/23 14:43 EDT Medication Consenton 023 Medication Consent [id number] D:127 [facility] Pre-Certification Formon Pre-Certification Form [id number] D:127 [facility] Consultation Noteon 02-02-20 Consultation Note [id number] :127 [facility] Consultation Noteon 01-28-20 Consultation Note [id number] D:127 [facility] Insurance Correspondenceon 0 01-19-2023 Insurance Correspondence [id number] CD:127 [facility] Ambulatory Visit Summaryon 0 01-12-2023 Ambulatory Visit Summary JEREMIE BENNETT Annabelle :1940 Visit Date:01/12/2023 Ambulatory Visit Instructions Your Diagnosis Pancreatic cyst RUQ pain Fecal urgency Dysphagia Your Care Team Attending Physician - Flori GARZA, Anjlai Lyssa Primary Care Physician - Sabino Cooper MD This Is Your Medications List Contact prescribing physician if questions or concerns APAP/butalbital/caffein e (APAP/butalbital/caffei ne 325 mg-50 mg-40 mg Tab) Misc Prescription (Misc DME Prescription) Misc Prescription (Misc DME Prescription) albuterol (Albuterol (Eqv-ProAir HFA) 90 mcg/inh inhalation aerosol) amlodipine (amLODIPine 5 mg Tab) aspirin (Aspir 81) clopidogrel (Plavix 75 mg Tab) dorzolamide ophthalmic (dorzolamide ophthalmic 2% solution) fluticasone nasal (Flonase 0.05 mg/inh [place]) furosemide (furosemide 20 mg Tab) gabapentin (gabapentin 600 mg Tab) irbesartan (irbesartan 300 mg Tab) isosorbide mononitrate latanoprost ophthalmic loperamide (loperamide 2 mg Tab) metformin (metformin 500 mg ER Tab) multivitamin with minerals (Multivitamin, Therapeutic w/ Minerals) omega-3 polyunsaturated fatty acids (Shubert-3 Fish Oil) omeprazole (omeprazole 40 mg Cap-DR) polyethylene glycol 3350 with electrolytes (Plenvu oral powder for reconstitution) rosuvastatin (rosuvastatin 10 mg Tab) sotalol (sotalol 80 mg Tab) sucralfate (sucralfate 1 g Tab) tizanidine (tiZANidine 4 mg Tab) Procedures Performed Esophagogastroduodenosc opy (05/20/2020), Angioplasty, Cardiac pacemaker procedure, Cataract, Cholecystectomy, Colonoscopy, Hernia repair, Prostate excision, Tonsillectomy, Vasectomy. Discharge Vitals Temperature (Temporal Artery) 36.1 ?C Heart Rate (Peripheral) 69 Blood Pressure 109/68 Height 163 cm Height 64 in Weight 79.4 kg Weight 174.68 lb BMI 29.88 What to do next Scheduled Follow-Up Appointments Wednesday 9:00 AM EST With: Hermes CASON, Sabino Rosa Where: [facility] Invalid Interpretation Code [address] [place] [address]- \.br\ You Need to Schedule the Following Appointments\.br \ Follow Up with Anjali Ruby CNP When: Within 1 to 2 weeks\.br\ Comments:\.br\ Following EGD/Colonoscopy. \.br\ Where:\.br\ You Need to Complete the Following\.br\ CT Abdomen w/ Contrast, 01/12/23, Routine, Order for future visit, Transport Mode: Ambulatory, Reason: Other (please specify), Reason: Pancreatic cyst, No, Pancreatic cyst [facility] Gastroenterology Office/Clin ic Noteon 01-12-2023 Gastroenterology Office/Clinic Note Chief Complaint RUQ pain, hard stool, dysphagia and fecal urgency. HPI Staff This is a 82 year old male who presents today for a follow-up from 12/15/22 office visit and US results. History of Present Illness Patient is a 82-year-old male who presents for follow-up. Patient was previously evaluated 12/15/2022 for referral from his PCP for lower abdominal pain. Previous review of evaluation with his PCP 11/23/2022 indicated patient with lower abdominal pain and was referred for further evaluation. Presents with his today. Patient reported during visit with me that he had COVID-19 in September 2022 and was having worse constipation and fecal urgency. He reported he was currently having 1 formed bowel movement daily with Carafate that was recently started by another provider. He reported occasional hard stools. He also reported having RUQ abdominal pain for years described as sharp but occurred 2-3 times a month. He reported abdominal pain was worse with coughing or sneezing. Patient also with history of acid reflux that he reported was well controlled with omeprazole 40 mg daily. He reported having difficulty swallowing over the last 10 to 12 years with primarily solids and at times liquids and felt like food was getting stuck in the esophagus. Patient was ordered ultrasound of RUQ. Patient previous labs 11/2022 that revealed normal CBC/CMP. Patient was ordered EGD/colonoscopy. Review of records from previous evaluation with Dr. Larsen from 04/2020 indicated patient with history of pacemaker, CAD with stents and is taking Plavix. Patient had previous EGD 05/[address] Larsen that revealed esophageal inlet patch, 2 diminutive clean-based ulcers in antrum, mild antral gastritis, subcentimeter gastric polyps, biopsy of stomach revealed moderate chronic active gastritis, negative for intestinal metaplasia, stomach polyp biopsy revealed fundic gland polyp. Review of records from previous evaluation with Dr. Larsen from 04/2020 indicated patient with history of pacemaker, CAD with stents and is taking Plavix. Patient with family history of GI cancer? paternal grandfather with stomach cancer, cousin with pancreatic cancer. Note indicated patient had previous colonoscopy in 2018 that revealed diverticulosis and hemorrhoids. Patient brought outside records from outside facility: [facility] 03/31/2020 CT A/P revealed prominent amount of fluid in colon suggesting diarrhea, diverticulosis, Patient had previous ultrasound of RUQ 09/2019 at outside facility revealed 0.7cm pancreatic cyst and cholelithiasis. Patient reports hx. cholecystectomy in 2019. Outside record from [facility] from 04/01/2020 indicated patient had RUQ ultrasound that revealed no acute process, fatty change in liver. Ultrasound of abdomen 12/17/2022 revealed 6 mm pancreatic cyst and radiology recommended MRI with contrast or MRCP in 2 years. During today's visit, patient reports he is still having RUQ pain described as sharp that is occurring daily over the last 4 years. Patient reports RUQ pain is worse with coughing/sneezing. Is having difficulty swallowing solids and at times liquids over the last 10-12 years. Is having 1 formed BM daily. He reports having fecal urgency that is occurring every 2-3 days. Has rare occasions of loose stools. Denies use of fiber supplementation. Denies black/bloody stools, nausea/vomiting, fevers/chills, and denies having any other GI complaints. Review of Systems ROS - Provider Constitutional: no fever, no chills. Skin: no Jaundice. ENMT: Denies dysphagia and heartburn. Respiratory: no shortness of breath. Cardiovascular: no chest pain. Gastrointestinal: no nausea, no vomiting, rare loose stools, no GI bleeding. Physical Exam Vitals & Measurements T: 36.1 ?C(Temporal Artery) HR: 69(Peripheral) BP: 109/68 HT: 64 in HT: 163 cm WT: 79.4 kg WT: 174.68 lb BMI: 29.88 General: Well developed, well nourished, in no acute distress Head: Normocephalic/atraumati c Lungs: Normal respiratory effort and clear to auscultation Cardio: Regular rate and rhythm, normal S1 and S2, no murmur, no rub Abdomen: Soft, non-distended, non-tender. Normoactive bowel sounds present in all 4 abdominal quadrants, bilaterally. Mental Status: Alert and oriented x3. Normal mood and affect Assessment/Plan 1. Pancreatic cyst (K86.2: Cyst of pancreas) FH pancreatic cancer- patient's cousin. Patient brought outside records from outside facility: [facility] 03/31/2020 CT A/P revealed prominent amount of fluid in colon suggesting diarrhea, diverticulosis, Patient had previous ultrasound of RUQ 09/2019 at outside facility revealed 0.7cm pancreatic cyst and cholelithiasis. Patient reports hx. cholecystectomy in 2019. Outside record from [facility] from 04/01/2020 indicated patient had RUQ ultrasound that revealed no acute process, fatty change in liver. Ultrasound of abdomen 12/17/2022 revealed 6 mm pancreatic cyst and radiology recommended MRI with contras (more content not included)... Normal [facility] Comment on above: Result Comment: Elec tronically Signed By: Anjali Ruby CNP\.marco a\Date and Time Signed: 01/12/23 10:00 EDT Retail - Clinical Noteon Retail - Clinical Note [id number] D:127 Normal [facility] Physician Referralon 023 Physician Referral [id number] D:127 Normal [facility] US Abdomen, Limitedon 2022 US Abdomen, Limited Exam Date/Time: 12/17/2022 07:53 EDT Reason for Exam: RUQ pain post cholecystectomy;Abdomin al pain Report IMPRESSION: APPROXIMATELY 6 MM PANCREATIC CYST. A FOLLOW-UP ABDOMEN MRI WITH CONTRAST/MRCP IN 2 YEARS IS SUGGESTED FOR THIS PATIENT'S AGE GROUP. OTHERWISE, NEGATIVE LIMITED RUQ ULTRASOUND AFTER PREVIOUS CHOLECYSTECTOMY. EXAM: US Abdomen, Limited DATE: 12/17/2022 CLINICAL HISTORY: Abdominal pain, RUQ pain post cholecystectomy. COMPARISON: None available. TECHNIQUE: Transabdominal ultrasound of the right upper quadrant was performed. FINDINGS: The study is mild to moderately limited by the patient's body habitus. The gallbladder has been removed. An approximately 6 mm cyst is noted within the body of the otherwise unremarkable appearing visualized pancreas. The visualized liver, right kidney, and great vessels are unremarkable. There is no significant gallbladder distention, wall thickening, calculi, sludge, pericholecystic fluid, biliary dilatation, or ascites identified. The common duct measures approximately 4 to 5 mm at the nish hepatis. Ordering Provider: , FINAL REPORT Dictated: 12/20/2022 6:51 pm Godfrey Moore MD Signed (Electronic Signature): 12/20/2022 6:51 pm Signed by: Godfrey Moore MD Transcribed by: SHAUNNA Technologist: MADDIE [facility] Consent for Treatmenton Consent for Treatment [id number] D:127 Normal [facility] Ambulatory Visit Summaryon 0 12-15-2022 Ambulatory Visit Summary JEREMIE BENNETT :1940 Visit Date:12/15/2022 Ambulatory Visit Instructions Your Diagnosis RUQ pain Dysphagia Fecal urgency Hard stool FH: stomach cancer Your Care Team Attending Physician - Anjali Ruby CNP Primary Care Physician - Sabino Cooper MD Referring Physician - Sabino Cooper MD This Is Your Medications List polyethylene glycol 3350 with electrolytes (Plenvu oral powder for reconstitution) Contact prescribing physician if questions or concerns APAP/butalbital/caffein e (APAP/butalbital/caffei ne 325 mg-50 mg-40 mg Tab) Misc Prescription (Misc DME Prescription) Misc Prescription (Misc DME Prescription) albuterol (Albuterol (Eqv-ProAir HFA) 90 mcg/inh inhalation aerosol) amlodipine (amLODIPine 5 mg Tab) aspirin (Aspir 81) clopidogrel (Plavix 75 mg Tab) dorzolamide ophthalmic (dorzolamide ophthalmic 2% solution) fluticasone nasal (Flonase 0.05 mg/inh [place]) furosemide (furosemide 20 mg Tab) gabapentin (gabapentin 600 mg Tab) irbesartan (irbesartan 300 mg Tab) isosorbide mononitrate latanoprost ophthalmic loperamide (loperamide 2 mg Tab) metformin (metformin 500 mg ER Tab) multivitamin with minerals (Multivitamin, Therapeutic w/ Minerals) omega-3 polyunsaturated fatty acids (Shubert-3 Fish Oil) omeprazole (omeprazole 40 mg Cap-DR) rosuvastatin (rosuvastatin 10 mg Tab) sotalol (sotalol 80 mg Tab) sucralfate (sucralfate 1 g Tab) tizanidine (tiZANidine 4 mg Tab) Procedures Performed Esophagogastroduodenosc opy (05/20/2020), Angioplasty, Cardiac pacemaker procedure, Cataract, Cholecystectomy, Colonoscopy, Hernia repair, Prostate excision, Tonsillectomy, Vasectomy. Discharge Vitals Temperature (Temporal Artery) 36 ?C Heart Rate (Peripheral) 72 Blood Pressure 113/72 Height 163 cm Height 64 in Weight 73.3 kg Weight 161.26 lb BMI 27.59 What to do next Scheduled Follow-Up Appointments 2022 8:00 AM EDT With: Where: [facility] Wednesday 9:00 AM EST With: Sabino Cooper MD Where: [facility] Normal [address] [place] [address]- \.br\ You Need to Schedule the Following Appointments\.br \ Follow Up with Anjali Ruby CNP When: Within 1 to 2 weeks\.br\ Comments:\.br\ Following EGD/Colonoscopy. \.br\ Where:\.br\ You Need to Complete the Following\.br\ US Abdomen, Limited, 12/17/22, Routine, Order for future visit, Transport Mode: Ambulatory, Reason: Abdominal pain, Reason: RUQ pain post cholecystectomy, No, RUQ pain, pp_set_radiology _subspecialty, Not Required, Chacho Cohn\.br\ Medications\.br\ What How Much When Instructions\.br \ New polyethylene glycol 3350 with electrolytes (Plenvu oral powder for reconstitution) See instructions Prior to colonoscopy. Pickup at [facility] #[id number]\.br\ Unchanged albuterol (Albuterol (Eqv-ProAir HFA) 90 mcg/ inh inhalation aerosol) See instructions USE 2 INHALATIONS BY MOUTH EVERY 6 HOURS Contact prescribing physician if questions or concerns \.br\ Unchanged amlodipine (amLODIPine 5 mg Tab) 1 Tablets By Mouth Every day Contact prescribing physician if questions or concerns \.br\ Unchanged APAP/ butalbital/ caffeine (APAP/ butalbital/ caffeine 325 mg-50 mg-40 mg Tab) Contact prescribing physician if questions or concerns \.br\ Unchanged aspirin (Aspir 81) 81 Milligram By Mouth Every day Contact prescribing physician if questions or concerns \.br\ Unchanged clopidogrel (Plavix 75 mg Tab) 1 Tablets By Mouth Every day Contact prescribing physician if questions or concerns \.br\ Unchanged dorzolamide ophthalmic (dorzolamide ophthalmic 2% solution) 1 Drops Ophthalmic 2 times a day each eye Contact prescribing physician if questions or concerns \.br\ Unchanged fluticasone nasal (Flonase 0.05 mg/ inh [place]) 1 Sprays Nasal Inhalation 2 times a day each nostril Contact prescribing physician if questions or concerns \.br\ Unchanged furosemide (furosemide 20 mg Tab) 1 Tablets By Mouth Every day Contact prescribing physician if questions or concerns \.br\ Unchanged gabapentin (gabapentin 600 mg Tab) 600 Milligram By Mouth 3 times a day Contact prescribing physician if questions or concerns \.br\ Unchanged irbesartan (irbesartan 300 mg Tab) 1 Tablets By Mouth Every day Contact prescribing physician if questions or concerns \.br\ Unchanged isosorbide mononitrate 30 Milligram By Mouth Once a day (in the morning) Contact prescribing physician if questions or concerns \.br\ Unchanged latanoprost ophthalmic Once a day (in the evening) Contact prescribing physician if questions or concerns \.br\ Unchanged loperamide (loperamide 2 mg Tab) 1 Tablets By Mouth Every 4 hours Contact prescribing physician if questions or concerns \.br\ Unchanged metformin (metformin 500 mg ER Tab) By Mouth 2 times a day Contact prescribing physician if questions or concerns \.br\ Unchanged Misc Prescription (Misc DME Prescription) See instructions one touch ultra test strips test sugars once a day Contact prescribing physician if questions or concerns \.br\ Unchanged Misc Prescription (Misc DME Prescription) See instructions one touch ultra lancets Use to test sugars once a day Contact prescribing physician if questions or concerns \.br\ Unchanged multivitamin with minerals (Multivitamin, Therapeutic w/ Minerals) By Mouth Every day Contact prescribing physician if questions or concerns \.br\ Unchanged omega-3 polyunsaturated fatty acids (Shubert-3 Fish Oil) By Mouth Every day Contact prescribing physician if questions or concerns \.br\ Unchanged omeprazole (omeprazole 40 mg Cap-DR) 40 Milligram By Mouth Every day Contact prescribing physician if questions or concerns \.br\ Unchanged rosuvastatin (rosuvastatin 10 mg Tab) See instructions TAKE 1 TABLET BY MOUTH DAILY Contact prescribing physician if questions or concerns \.br\ Unchanged sotalol (sotalol 80 mg Tab) 0.5 tab By Mouth 2 times a day Contact prescribing physician if questions or concerns \.br\ Unchanged sucralfate (sucralfate 1 g Tab) Contact prescribing physician if questions or concerns \.br\ Unchanged tizanidine (tiZANidine 4 mg Tab) 1 Tablets By Mouth Every day Contact prescribing physician if questions or concerns \.br\ Pharmacy Information\.br\ [facility] #[id number]: [address] [place] [address], [place] [phone]\.br\ Allergies\.br\ Adhesive Bandage (Rash)\.br\ Niaspan ER (Itching)\.br\ Problems\.br\ Ongoing - Any problem that you are currently receiving treatment for.\.br\ Abdominal pain\.br\ BMI 30.0-30.9,adult\ .br\ COVID-19\.br\ Diabetic autonomic neuropathy associated with type 2 diabetes mellitus\.br\ Dysphagia\.br\ Fecal urgency\.br\ FH: stomach cancer\.br\ GERD with apnea\.br\ Glaucoma\.br\ Hard stool\.br\ Hypercholesterol emia\.br\ Leaking of urine\.br\ Lower abdominal pain\.br\ Mixed incontinence\.br \ Numbness of right hand\.br\ Osteoarthritis\. br\ Pacemaker\.br\ Personal history of prostate cancer\.br\ Primary hypertension\.br \ Prostatitis\.br\ PUD (peptic ulcer disease)\.br\ Right flank pain, chronic\.br\ Right-sided chest wall pain\.br\ RUQ pain\.br\ Sleep apnea\.br\ Type 2 diabetes mellitus without complication, without long-term current use of insulin\.br\ Upper abdominal pain\.br\ Urinary incontinence without sensory awareness\.br\ Vitamin D deficiency\.br\ Education Materials\.br\ Colonoscopy, Adult\.br\ A colonoscopy is a procedure to look at the entire large intestine. This procedure is done using a long, thin, flexible tube that has a camera on the end.\.br\ You may have a colonoscopy:\.br \ ? \.br\ As a part of normal colorectal screening.\.br\ ? \.br\ If you have certain symptoms, such as:\.br\ ? \.br\ A low number of red blood cells in your blood (anemia).\.br\ ? \.br\ Diarrhea that does not go away.\.br\ ? \.br\ Pain in your abdomen.\.br\ ? \.br\ Blood in your stool.\.br\ A colonoscopy can help screen for and diagnose medical problems, including:\.br\ ? \.br\ An abnormal growth of cells or tissue (tumor).\.br\ ? \.br\ Abnormal growths within the lining of your intestine (polyps).\.br\ ? \.br\ Inflammation.\.b r\ ? \.br\ Areas of bleeding.\.br\ Tell your health care provider about:\.br\ ? \.br\ Any allergies you have.\.br\ ? \.br\ All medicines you are taking, including vitamins, herbs, eye drops, creams, and zwir-tjg-ptdpoeh medicines.\.br\ ? \.br\ Any problems you or family members have had with anesthetic medicines.\.br\ ? \.br\ Any bleeding problems you have.\.br\ ? \.br\ Any surgeries you have had.\.br\ ? \.br\ Any medical conditions you have.\.br\ ? \.br\ Any problems you have had with having bowel movements.\.br\ ? \.br\ Whether you are or may be .\.br\ What are the risks?\.br\ Generally, this is a safe procedure. However, problems may occur, including:\.br\ ? \.br\ Bleeding.\.br\ ? \.br\ Damage to your intestine.\.br\ ? \.br\ Allergic reactions to medicines given during the procedure.\.br\ ? \.br\ Infection. This is rare.\.br\ What happens before the procedure?\.br\ Eating and drinking restrictions\.br \ Follow instructions from your health care provider about eating or drinking restrictions, which may include:\.br\ ? \.br\ A few days before the procedure:\.br\ ? \.br\ Follow a low-fiber diet.\.br\ ? \.br\ Avoid nuts, seeds, dried fruit, raw fruits, and vegetables.\.br\ ? \.br\ 1?3 days before the procedure:\.br\ ? \.br\ Eat only gelatin dessert or ice pops.\.br\ ? \.br\ Drink only patt [facility] Consent for Procedure/Surger yon 12-15-2022 Consent for Procedure/Surgery [id number] D:127 Normal [facility] Gastroenterology Office/Clin ic Noteon 12-15-2022 Gastroenterology Office/Clinic Note Chief Complaint Abdominal pain HPI Staff Patient is a 82 year old male established patient who was referred by Dr Cooper for low abdominal pain. Patient was last seen 10/31/[address] Larsen for heartburn and peptic ulcer disease. History of Present Illness Patient is a 82-year-old male who presents for referral from his PCP?Dr. Cooper for further evaluation of lower abdominal pain. Presents with his today. Patient was previously evaluated by his PCP 11/23/2022 and notes indicated patient with lower abdominal pain and was referred regarding further evaluation. Patient had previous EGD 05/[address] Larsen that revealed esophageal inlet patch, 2 diminutive clean-based ulcers in antrum, mild antral gastritis, subcentimeter gastric polyps, biopsy of stomach revealed moderate chronic active gastritis, negative for intestinal metaplasia, stomach polyp biopsy revealed fundic gland polyp. Review of records from previous evaluation with Dr. Larsen from 04/2020 indicated patient with history of pacemaker, CAD with stents and is taking Plavix. Patient with family history of GI cancer? paternal grandfather with stomach cancer, cousin with pancreatic cancer. Note indicated patient had previous colonoscopy in 2017 that revealed diverticulosis and hemorrhoids. PMH of HTN, HLD, DM, type 2- managed by patient's PCP. Hx. cholecystectomy in 2019. Labs 11/25/22 revealed normal CBC/CMP. During today's visit, patient reports he has hx. COVID-19 in Sep, 2022 and explains he was having worse constipation and fecal urgency. He reports having fecal urgency and constipation over the last 5 years. He explains he is currently having 1 formed BM daily with Carafate that was recently started by another provider 3 weeks ago. Has occasional hard stools. Is having RUQ abdominal pain for years described as sharp and occurs 2-3 times a month. RUQ pain occurs without regard to food. Pain in RUQ is worse coughing or sneezing. He reports acid reflux is well-controlled with omeprazole 40mg daily. He reports having difficulty swallowing over the last 10-12 years with primarily solids and at times liquids. He reports feeling like food gets stuck in esophagus. He reports difficulty swallowing is occurring nearly every day. Denies black/bloody stools, nausea/vomiting, fevers/chills, and denies having any other GI complaints. Review of Systems ROS - Provider Constitutional: no fever, no chills. Skin: no Jaundice. ENMT: Yes dysphagia. Respiratory: no shortness of breath. Cardiovascular: no chest pain. Gastrointestinal: no nausea, no vomiting, no diarrhea, no GI bleeding. Physical Exam Vitals & Measurements T: 36 ?C(Temporal Artery) HR: 72(Peripheral) BP: 113/72 HT: 64 in HT: 163 cm WT: 73.3 kg WT: 161.26 lb BMI: 27.59 General: Well developed, well nourished, in no acute distress Head: Normocephalic/atraumati c Lungs: Normal respiratory effort and clear to auscultation Cardio: Regular rate and rhythm, normal S1 and S2, no murmur, no rub Abdomen: Soft, non-distended, non-tender. Normoactive bowel sounds present in all 4 abdominal quadrants, bilaterally. Mental Status: Alert and oriented x3. Normal mood and affect Assessment/Plan 1. RUQ pain (R10.11: Right upper quadrant pain) RUQ abdominal pain for years described as sharp and occurs 2-3 times a month. RUQ pain occurs without regard to food. Pain in RUQ is worse coughing or sneezing. Previous EGD 05/[address] Larsen that revealed esophageal inlet patch, 2 diminutive clean-based ulcers in antrum, mild antral gastritis, subcentimeter gastric polyps, biopsy of stomach revealed moderate chronic active gastritis, negative for intestinal metaplasia, stomach polyp biopsy revealed fundic gland polyp. Ordered EGD. Ordered ultrasound of RUQ. Labs 11/25/22 revealed normal CBC/CMP. Ordered: EGD Endoscopy (Hospital Procedure) US Abdomen, Limited 2. Dysphagia (R13.10: Dysphagia, unspecified) Is having difficulty swallowing over the last 10-12 years with primarily solids and at times liquids. Is feeling like food gets stuck in esophagus. He reports difficulty swallowing is occurring nearly every day. Previous EGD 05/[address] Larsen that revealed esophageal inlet patch, 2 diminutive clean-based ulcers in antrum, mild antral gastritis, subcentimeter gastric polyps, biopsy of stomach revealed moderate chronic active gastritis, negative for intestinal metaplasia, stomach polyp biopsy revealed fundic gland polyp. Ordered EGD with dilation. Takes Plavix daily- will request hold time recommendations regarding Plavix from prescribing provider prior to EGD with possible dilation. Ordered: EGD Endoscopy (Hospital Procedure) 3. Fecal urgency (R15.2: Fecal urgency) Improved. Previous colonoscopy in 2018 that revealed diverticulosis and hemorrhoids. Ordered Colonoscopy. Takes Plavix daily- will request hold time recommendations regarding Plavix from prescribing provider prior to colonoscopy. Ordered: [place] (more content not included)... Normal [facility] Comment on above: Result Comment: Elec tronically Signed By: Flori GARZA, Anjali Omalley\.marco a\Date and Time Signed: 12/15/22 12:30 EDT Physician Referralon 023 Physician Referral [id number] D:127 Normal [facility] Lab Reportson 11-27-2022 Lab Reports [id number] D:127 Normal [facility] Lab Reports [id number] D:127 Normal [facility] Family Medicine Office/Clini c Noteon 11-24-2022 Family Medicine Office/Clinic Note HPI Staff 3 month follow up diabetes/htn Patient is here for follow up on hypertension. How often are you checking your blood pressure? once weekly What are your average readings? 128/70 Do you have any of the following symptoms? Chest Pain? no Palpitations? no SCHREIBER/SOB? no Headache? no Peripheral Edema? no Light Headedness? no Yearly BMP: February 2022 Refill needed?: no Patient is here for follow up on Diabetes. How often are you checking your blood sugars? 2 times per week What are your average readings? 103 Do you have any of the following symptoms? Foot Exam: with Dr. Hardy on 11/26/2022 Eye Exam: Dr. Luo at the end of July 2022 Microalbumin: pt does not recall Last A1C: February 2022 5.9% Last Chronic Labs: February 2022 at [facility] History of Present Illness Jeremie Bennett is an 82-year-old male who presents today for a follow-up evaluation. The patient states that he is doing better. He felt stable yesterday, but then his stomach started bothering him again. He has an appointment with a sexton helper for an EGD. His medical grade shoemaker, Dr. Arellano, did not make any changes to his medications in his last visit. Dr. Arellano checked him and the patient is stable. His fatigue has improved. He had a foot exam with Dr. Hardy. He has a bruise on the superior part of his toe. He has an appointment with Dr. Hardy on , 11/26/2021. His last blood work was in 02/2022. He will be travelling in the [facility] [place] for 3 weeks during [place]. Review of Systems PHQ Score Initial Depression Screen Score: 0 Physical Exam Vitals & Measurements HR: 78(Peripheral) BP: 132/80 SpO2: 94% HT: 64 in HT: 163 cm WT: 78.9 kg WT: 173.58 lb BMI: 29.7 General: alert, no acute distress ENMT: oral mucosa moist, no pharyngeal erythema or exudate Cardiovascular: regular rate and rhythm, normal peripheral perfusion Respiratory: Lungs CTA, respirations non labored Extremities: no deformity, no trauma Neurological: oriented x 4, LOC appropriate for age, CN II-XII intact, motor strength equal & normal bilaterally, speech normal Feet: Positive for a bruise on the second digit of the left foot. Diabetic Foot Exam Decreased Monofilament Sensation Foot: Left - Normal, Right - Normal Bunions/Foot Deformity: Left - Normal, Right - Normal Abnormal Pulse Foot: Left - Normal, Right - Normal Skin Lesions Foot: Left - Abnormal, Right - Normal Foot Exam Result: Abnormal foot exam Foot Exam Findings: Bruising noted on the 2nd toe on the L. Assessment/Plan 1. Primary hypertension (I10: Essential (primary) hypertension) Patient is at goal today. Continue taking medication as before. Discussed patient's cardiology visit with him. 2. Hypercholesterolemia (E78.00: Pure hypercholesterolemia, unspecified) We will check lipids today. We will adjust medication as needed. 3. Diabetic autonomic neuropathy associated with type 2 diabetes mellitus (E11.43: Type 2 diabetes mellitus with diabetic autonomic (poly)neuropathy) Last A1c was at goal. We will continue the patient on metformin. We will check his 6 months labs today. No other concern. 4. Type 2 diabetes mellitus without complication, without long-term current use of insulin (E11.9: Type 2 diabetes mellitus without complications) Last A1c was at goal. We will continue the patient on metformin. We will check his 6 months labs today. No other concern. 5. BMI 29.0-29.9,adult (Z68.29: Body mass index [BMI] 29.0-29.9, adult) BMI education given. 6. Lower abdominal pain (R10.30: Lower abdominal pain, unspecified) Patient is seeing GI for further work-up on the abdominal pain. We will see the patient back in 6 months or sooner as needed. Portions of this record may have been created with voice recognition artificial intelligence software, specifically [employer], [employer] and or [employer]. Substitutions may have occurred due to the inherent limitations of voice recognition and artificial intelligence software. Documentation services were performed after patient or guardian consented to allow [employer] to record this visit. OSVALDO marketing content specialist and provider reviewed before signing. OSVALDO: Kalyn Leroy. 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 Normal [facility] Comment on above: Result Comment: Elec tronically Signed By: Sabino Cooper MD\.br\Date and Time Signed: 11/24/22 12:47 EDT\.br\Electronically Co-Signed By: Tory Sifuentes\.br\Date and Time Co-Signed: 11/23/22 14:01 EDT CHEMISTRYOrdered By: Yash Shah on 11-23-2022 Albumin DL <= 20 mg/L (U) [Mass/Vol] microgram/mL Normal 0.0 - 19.0 mcg/mL [facility] Remisol Albumin Elph (U) [Mass fraction] mg/dL Invalid Interpretation Code [facility] Remisol Creatinine (U) [Mass/Vol] 15.9 mg/dL Invalid Interpretation Code [facility] Chem S U Prot/Creat Ratio [facility] Invalid Interpretation Code 0.00 - 200.00 [facility] Chem S Comment on above: Result Comment: Unab le to calculate due to Protein being less than analyzer reportable range. Orders Onlyon 11-23-2022 Orders Only [id number] [address] P 1940 M Date Provider Department [place] 11/23/2022 JOSE R MCGHEE [facility] Family History Problem Relation Age of Onset Coronary artery disease Mother Kidney disease Mother Heart failure Mother Family Status - Relation Status Age at Mother Normal [facility] U Microal[place] 11-23-2022 Albumin DL <= 20 mg/L (U) [Mass/Vol] mg/dL Normal 0.0-19.0 [facility] Comment on above: Performed By: #### 1 [id number], [id number] #### [facility] Laboratory [address] [place] [address] U Protein/Creat Ratioon 11-14 Albumin Elph (U) [Mass fraction] <6.0 Invalid Interpretation Code [facility] Comment on above: Result Comment: The reference range and other method performance specifications have not been established for this test; results should be integrated into the clinical context for interpretation. Performed By: #### 1 [id number], [id number] #### [facility] Laboratory [address] [place] [address] Creatinine (U) [Mass/Vol] 15.9 mg/dL Invalid Interpretation Code [facility] Comment on above: Result Comment: The reference range and other method performance specifications have not been established for this test; results should be integrated into the clinical context for interpretation. Performed By: #### 1 [id number], [id number] #### [facility] Laboratory [address] [place] [address] U Prot/Creat Ratio [facility] Invalid Interpretation Code .00-200.00 [facility] Comment on above: Result Comment: Unab le to calculate due to Protein being less than analyzer reportable range. Performed By: #### 1 [id number], [id number] #### [facility] Laboratory [address] [place] [address] Consultation Noteon 11-23-19 Consultation Note [id number] D:127 Normal [facility] Family Medicine Office/Clini c Noteon 11-12-2022 Family Medicine Office/Clinic Note Chief Complaint Subsequent [employer] [facility] Visit History of Present Illness I was in the office and available for consultation and to provide direct supervision at the time of this visit. I have provided supervision of the care team and have reviewed this chart and office note and agree with the plan of care. Covid-19, MERS, Ebola Screen *Contact With Person With Highly Contagious Disease Like Ebola/MERS/COVID-19 AND Have One or More of the Symptoms Below : No *Travel to a Country With Wide-Spread Ebola/MERS/COVID-19 in the Past 21 Days AND Have One or More of the Symptoms Below : No Patient Reported Covid-19 Testing : No *Verify Droplet, Contact Precautions for Ebola (Reference for CDC) : N/A *Verify Airborne, Droplet Precautions for MERS/COVID-19 : N/A Galileo Tucker - 11/04/2022 14:00 EDT Medicare/Medicaid Summary Height/Length Measured : 163 cm(Converted to: 5 ft 4 in, 64.17 in) Weight Measured : 76 kg(Converted to: 167 lb 9 Ounces, 167.551 lb) Body Mass Index Measured : 28.6 kg/m2 Height in Inches : 64 in Weight in Pounds : 167.2 lb Waist Measurement : 100 cm(Converted to: 39 in) Systolic Blood Pressure : 110 mmHg Diastolic Blood Pressure : 72 mmHg Blood Pressure Location : Left arm Peripheral Pulse Rate : 85 bpm SpO2 : 94 % Galileo Tucker 11/04/2022 14:59 EDT Chief Complaint : Subsequent [facility] [facility] Visit Patient Counseled : Nutrition, Physical activity, Elevated BMI Blood Pressure Position : Sitting O2 Sat Resting/Exertion Alpha : Resting Pain Present : Yes actual or suspected pain Numeric Rating Pain Scale : 6 Primary Pain Location : Abdomen Numeric Rating Pain Score : 6 Galileo Tucker 11/04/2022 14:00 EDT Patient Preferred Method of Communication No Preference Hearing and Vision Screening FT FT Whisper Test Comments : wears bilateral hearing aids Vision Screen Comments : wears corrective lennses, follows with Dr. Allen every 6 months Galileo Tucker R - 11/04/2022 14:00 EDT Advance Directive FT Advance Directive : Yes Patient Wishes to Receive Further Information on Advance Directives : No Organ Donation Consent : No Galileo Tucker R - 11/04/2022 14:00 EDT Procedures / Surgeries FT - Procedure History (As Of: 11/04/2022 15:03:42 EDT) Anesthesia Minutes: 0 ; Procedure Name: Vasectomy ; Procedure Minutes: 0 ; Last Reviewed Dt/Tm: 11/04/2022 15:01:07 EDT Anesthesia Minutes: 0 ; Procedure Name: Prostate excision ; Procedure Minutes: 0 ; Last Reviewed Dt/Tm: 11/04/2022 15:01:07 EDT Anesthesia Minutes: 0 ; Procedure Name: Cardiac pacemaker procedure ; Procedure Minutes: 0 ; Last Reviewed Dt/Tm: 11/04/2022 15:01:07 EDT Anesthesia Minutes: 0 ; Procedure Name: Angioplasty ; Procedure Minutes: 0 ; Last Reviewed Dt/Tm: 11/04/2022 15:01:07 EDT Anesthesia Minutes: 0 ; Procedure Name: Tonsillectomy ; Procedure Minutes: 0 ; Last Reviewed Dt/Tm: 11/04/2022 15:01:07 EDT Anesthesia Minutes: 0 ; Procedure Name: Colonoscopy ; Procedure Minutes: 0 ; Last Reviewed Dt/Tm: 11/04/2022 15:01:07 EDT Anesthesia Minutes: 0 ; Procedure Name: Hernia repair ; Procedure Minutes: 0 ; Last Reviewed Dt/Tm: 11/04/2022 15:01:07 EDT Procedure Dt/Tm: 05/20/2020 ; Location: [facility] ; Provider: Oksana Saini MD; Anesthesia Minutes: 0 ; Procedure Name: Esophagogastroduodenosc opy ; Procedure Minutes: 0 ; Comments: 05/20/2020 13:51 TIM Chapman RN, Chanel 2 diminunative ulcers, gastritis, gastric polyp, biopsy ; Last Reviewed Dt/Tm: 11/04/2022 15:01:07 EDT Anesthesia Minutes: 0 ; Procedure Name: Cholecystectomy ; Procedure Minutes: 0 ; Last Reviewed Dt/Tm: 11/04/2022 15:01:07 EDT Anesthesia Minutes: 0 ; Procedure Name: Cataract ; Procedure Minutes: 0 ; Comments: 08/24/2022 8:08 EDT - Tone TINOCON, Marianne L bilateral ; Last Reviewed Dt/Tm: 11/04/2022 15:01:07 EDT Family History Family History (As Of: 11/04/2022 15:03:42 EDT) Other Relationship: Relation: Other Relationship ; Nomenclature: Pancreatic ; Value: Positive Father: Relation: Father ; Gender: Male ; Nomenclature: Primary malignant neoplasm of prostate ; Value: Positive Mother: Relation: Mother ; Gender: Female ; Nomenclature: Heart trouble ; Value: Positive Nomenclature: Hypertension ; Value: Positive Grandparent: Relation: Grandparent ; Nomenclature: Heart trouble ; Value: Positive Nomenclature: Hypertension ; Value: Positive Nomenclature: Stomach cancer ; Value: Positive Nomenclature: Thyroid disease ; Value: Positive Nomenclature: Tuberculosis ; Value: Positive Medicare/Medicaid Social History FT Social History (As Of: 11/04/2022 15:03:42 EDT) Alcohol: Denies Alcohol Use Current, Wine, 1-2 times per year, 1 drinks/episode average. Household alcohol concerns: No. (Last Updated: 11/04/2022 14:15:47 EDT by Galileo Tucker) Tobacco: Denies Tobacco Use Former smoker, quit more than 30 days ago Tobacco Use:. Never [place] (more content not included)... Normal [facility] Comment on above: Result Comment: Elec tronically Signed By: Sabino Cooper MD\.br\Date and Time Signed: 11/12/22 12:59 EDT\.br\Electronically Co-Signed By: Galileo Tucker.br\Date and Time Co-Signed: 11/04/22 16:37 EDT 36on 11-11-2022 36 Please refill Normal [facility] Office Visiton 11-10-2022 Follow-up visit [id number] Y[address] 1940 M Date Provider Department [facility] 11/10/2022 JOSE R MCGHEE [facility] Family History Problem Relation Age of Onset Coronary artery disease Mother Kidney disease Mother Heart failure Mother Family Status - Relation Status Age at Mother Level of Service:64670 [place] OFFICE/OUTPATIENT ESTABLISHED MOD MDM 30-39 MIN Normal [facility] PROGRESSon 11-10-2022 SARS-CoV-2 (COVID-19) RNA MICHELLE+probe Ql (Unsp spec) Patient here per Dr. Cooper for cardiac workup s/p Covid-19 in September 2022. He denies chest pain and SOB. Still trying to get his energy back and has only been to cardiac rehab a few times since then. His device will be interrogated in the office next week. Review of Systems Constitutional: Positive for malaise/fatigue. Gastrointestinal: Positive for nausea. All other systems reviewed and are negative. Normal [facility] Physician Referralon 023 Physician Referral [id number] CD:127 Normal [facility] Screenson 11-05-2022 Screens [id number] D:127 Normal [facility] Ambulatory Visit Summaryon 0 11-04-2022 Ambulatory Visit Summary BENNETTJEREMIE Annabelle :1940 Visit Date:11/04/2022 Ambulatory Visit Instructions Your Diagnosis Annual visit for general adult medical examination without abnormal findings Type 2 diabetes mellitus without complication, without long-term current use of insulin Hypercholesterolemia Hypertension BMI 28.0-28.9,adult Leaking of urine Glaucoma Your Care Team Attending Physician - Sabino Cooper MD Primary Care Physician - Sabino Cooper MD This Is Your Medications List Misc Prescription (Misc DME Prescription) Misc Prescription (Misc DME Prescription) acetaminophen-diphenhyd rAMINE (Tylenol PM) albuterol (Albuterol (Eqv-ProAir HFA) 90 mcg/inh inhalation aerosol) amlodipine (amLODIPine 5 mg Tab) aspirin (Aspir 81) clopidogrel (Plavix 75 mg Tab) dorzolamide ophthalmic (dorzolamide ophthalmic 2% solution) fluticasone nasal (Flonase 0.05 mg/inh [place]) furosemide (furosemide 20 mg Tab) gabapentin (gabapentin 600 mg Tab) irbesartan (irbesartan 300 mg Tab) isosorbide mononitrate latanoprost ophthalmic loperamide (loperamide 2 mg Tab) metformin (metformin 500 mg ER Tab) multivitamin with minerals (Multivitamin, Therapeutic w/ Minerals) omega-3 polyunsaturated fatty acids (Shubert-3 Fish Oil) omeprazole (omeprazole 40 mg Cap-DR) rosuvastatin (Crestor 10 mg Tab) sotalol (sotalol 80 mg Tab) tizanidine (tiZANidine 4 mg Tab) Procedures Performed Esophagogastroduodenosc opy (05/20/2020), Angioplasty, Cardiac pacemaker procedure, Cataract, Cholecystectomy, Colonoscopy, Hernia repair, Prostate excision, Tonsillectomy, Vasectomy. Discharge Vitals Heart Rate (Peripheral) 85 Blood Pressure 110/72 Height 163 cm Height 64 in Weight 76 kg Weight 167.2 lb BMI 28.6 What to do next Scheduled Follow-Up Appointments Wednesday 9:00 AM EDT With: Hermes CASON, Sabino Rosa Where: [place] [id number] \.br\ Medications\.br\ What How Much When Instructions\.br \ Unchanged acetaminophen-di phenhydrAMINE (Tylenol PM) By Mouth Once a day (at bedtime) as needed for as needed for sleep\.br\ Unchanged albuterol (Albuterol (Eqv-ProAir HFA) 90 mcg/ inh inhalation aerosol) 2 Puffs Inhalation Every 6 hours or cheapest alternative \.br\ Unchanged amlodipine (amLODIPine 5 mg Tab) 1 Tablets By Mouth Every day\.br\ Unchanged aspirin (Aspir 81) 81 Milligram By Mouth Every day\.br\ Unchanged clopidogrel (Plavix 75 mg Tab) 1 Tablets By Mouth Every day\.br\ Unchanged dorzolamide ophthalmic (dorzolamide ophthalmic 2% solution) 1 Drops Ophthalmic 2 times a day each eye \.br\ Unchanged fluticasone nasal (Flonase 0.05 mg/ inh [place]) 1 Sprays Nasal Inhalation 2 times a day each nostril \.br\ Unchanged furosemide (furosemide 20 mg Tab) 1 Tablets By Mouth Every day\.br\ Unchanged gabapentin (gabapentin 600 mg Tab) 600 Milligram By Mouth 3 times a day\.br\ Unchanged irbesartan (irbesartan 300 mg Tab) 1 Tablets By Mouth Every day\.br\ Unchanged isosorbide mononitrate 30 Milligram By Mouth Once a day (in the morning)\.br\ Unchanged latanoprost ophthalmic Once a day (in the evening)\.br\ Unchanged loperamide (loperamide 2 mg Tab) 1 Tablets By Mouth Every 4 hours\.br\ Unchanged metformin (metformin 500 mg ER Tab) By Mouth 2 times a day\.br\ Unchanged Misc Prescription ([facility] Prescription) See instructions one touch ultra test strips test sugars once a day \.br\ Unchanged Misc Prescription ([facility] Prescription) See instructions one touch ultra lancets Use to test sugars once a day \.br\ Unchanged multivitamin with minerals (Multivitamin, Therapeutic w/ Minerals) By Mouth Every day\.br\ Unchanged omega-3 polyunsaturated fatty acids (Shubert-3 Fish Oil) By Mouth Every day\.br\ Unchanged omeprazole (omeprazole 40 mg Cap-DR) 40 Milligram By Mouth Every day\.br\ Unchanged rosuvastatin (Crestor 10 mg Tab) 1 Tablets By Mouth Every day\.br\ Unchanged sotalol (sotalol 80 mg Tab) 0.5 tab By Mouth 2 times a day\.br\ Unchanged tizanidine (tiZANidine 4 mg Tab) 1 Tablets By Mouth Every day\.br\ Allergies\.br\ Adhesive Bandage (Rash)\.br\ Niaspan ER (Itching)\.br\ Problems\.br\ Ongoing - Any problem that you are currently receiving treatment for.\.br\ BMI 30.0-30.9,adult\ .br\ COVID-19\.br\ Diabetic autonomic neuropathy associated with type 2 diabetes mellitus\.br\ GERD with apnea\.br\ Glaucoma\.br\ Hypercholesterol emia\.br\ Hypertension\.br \ Leaking of urine\.br\ Lower abdominal pain\.br\ Mixed incontinence\.br \ Numbness of right hand\.br\ Osteoarthritis\. 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 There are many simple things that you can do to make your home safe and to help prevent falls. Ask for help when making these changes, if needed.\.br\ What actions can I take to prevent falls?\.br\ General instructions\.br \ ? \.br\ Use good lighting in all rooms. Replace any light bulbs that burn out, turn on lights if it is dark, and use night-lights.\.b r\ ? \.br\ Place frequently used items in ewht-[id number] places. Lower the shelves around your home if necessary.\.br\ ? \.br\ Set up furniture so that there are clear paths around it. Avoid moving your furniture around.\.br\ ? \.br\ Remove throw rugs and other tripping hazards from the floor.\.br\ ? \.br\ Avoid walking on wet floors.\.br\ ? \.br\ Fix any uneven floor surfaces.\.br\ ? \.br\ Add color or contrast paint or tape to grab bars and handrails in your home. Place contrasting color strips on the first and last steps of staircases.\.br\ ? \.br\ When you use a stepladder, make sure that it is completely opened and that the sides and supports are firmly locked. Have someone hold the ladder while you are using it. Do not climb a closed stepladder.\.br\ ? \.br\ Know where your pets are when moving through your home.\.br\ What can I do in the bathroom?\.br\ \.br\ \.br\ ? \.br\ Keep the floor dry. Immediately clean up any water that is on the floor.\.br\ ? \.br\ Remove soap buildup in the tub or shower regularly.\.br\ ? \.br\ Use nonskid mats or decals on the floor of the tub or shower.\.br\ ? \.br\ Attach bath mats securely with double-sided, nonslip rug tape.\.br\ ? \.br\ If you need to sit down while you are in the shower, use a plastic, nonslip stool.\.br\ ? \.br\ Install grab bars by the toilet and in the tub and shower. Do not use towel bars as grab bars.\.br\ What can I do in the bedroom?\.br\ ? \.br\ Make sure that a bedside light is easy to reach.\.br\ ? \.br\ Do not use oversized bedding that reaches the floor.\.br\ ? \.br\ Have a firm chair that has side arms to use for getting dressed.\.br\ What can I do in the kitchen?\.br\ ? \.br\ Clean up any spills right away.\.br\ ? \.br\ If you need to reach for something above you, use a sturdy step stool that has a grab bar.\.br\ ? \.br\ Keep electrical cables out of the way.\.br\ ? \.br\ Do not use floor sudanese or wax that makes floors slippery. If you must use wax, make sure that it is non-skid floor wax.\.br\ What can I do with my stairs?\.br\ ? \.br\ Do not leave any items on the stairs.\.br\ ? \.br\ Make sure that you have a light switch at the top and the bottom of the stairs. Have them installed if you do not have them.\.br\ ? \.br\ Make sure that there are handrails on both sides of the stairs. Fix handrails that are broken or loose. Make sure that handrails are as long as the staircases.\.br\ ? \.br\ Install non-slip stair treads on all stairs in your home.\.br\ ? \.br\ Avoid having throw rugs at the top or bottom of stairs, or secure the rugs with carpet tape to prevent them from moving.\.br\ ? \.br\ Choose a carpet design that does not hide the edge of steps on the stairs.\.br\ ? \.br\ Check any carpeting to make sure that it is firmly attached to the stairs. Fix any carpet that is loose or worn.\.br\ What can I do on the outside of my home?\.br\ ? \.br\ Use bright outdoor lighting.\.br\ ? \.br\ Regularly repair the edges of walkways and driveways and fix any cracks.\.br\ ? \.br\ Remove high doorway thresholds.\.br\ ? \.br\ Trim any shrubbery on the main path into your home.\.br\ ? \.br\ Regularly check that handrails are securely fastened and in good repair. Both sides of all steps should have handrails.\.br\ ? \.br\ Install guardrails along the edges of any raised decks or porches.\.br\ ? \.br\ Clear walkways of debris and clutter, including tools and rocks.\.br\ ? \.br\ Have leaves, snow, and ice cleared regularly.\.br\ ? \.br\ Use sand or salt on walkways during winter months.\.br\ ? \.br\ In the garage, clean up any spills right away, including grease or oil spills.\.br\ What other actions can I take?\.br\ ? \.br\ Wear closed-toe shoes that fit well and support your feet. Wear shoes gio [facility] Patient Educationon 11-05-19 23 Patient Education Caregiving Fall Prevention in the Home, Adult Falls can cause injuries and affect people of all ages. There are many simple things that you can do to make your home safe and to help prevent falls. Ask for help when making these changes, if needed. What actions can I take to prevent falls? General instructions ? Use good lighting in all rooms. Replace any light bulbs that burn out, turn on lights if it is dark, and use night-lights. ? Place frequently used items in hnzr-is-[id number] places. Lower the shelves around your home if necessary. ? Set up furniture so that there are clear paths around it. Avoid moving your furniture around. ? Remove throw rugs and other tripping hazards from the floor. ? Avoid walking on wet floors. ? Fix any uneven floor surfaces. ? Add color or contrast paint or tape to grab bars and handrails in your home. Place contrasting color strips on the first and last steps of staircases. ? When you use a stepladder, make sure that it is completely opened and that the sides and supports are firmly locked. Have someone hold the ladder while you are using it. Do not climb a closed stepladder. ? Know where your pets are when moving through your home. What can I do in the bathroom? ? Keep the floor dry. Immediately clean up any water that is on the floor. ? Remove soap buildup in the tub or shower regularly. ? Use nonskid mats or decals on the floor of the tub or shower. ? Attach bath mats securely with double-sided, nonslip rug tape. ? If you need to sit down while you are in the shower, use a plastic, nonslip stool. ? Install grab bars by the toilet and in the tub and shower. Do not use towel bars as grab bars. What can I do in the bedroom? ? Make sure that a bedside light is easy to reach. ? Do not use oversized bedding that reaches the floor. ? Have a firm chair that has side arms to use for getting dressed. What can I do in the kitchen? ? Clean up any spills right away. ? If you need to reach for something above you, use a sturdy step stool that has a grab bar. ? Keep electrical cables out of the way. ? Do not use floor sudanese or wax that makes floors slippery. If you must use wax, make sure that it is non-skid floor wax. What can I do with my stairs? ? Do not leave any items on the stairs. ? Make sure that you have a light switch at the top and the bottom of the stairs. Have them installed if you do not have them. ? Make sure that there are handrails on both sides of the stairs. Fix handrails that are broken or loose. Make sure that handrails are as long as the staircases. ? Install non-slip stair treads on all stairs in your home. ? Avoid having throw rugs at the top or bottom of stairs, or secure the rugs with carpet tape to prevent them from moving. ? Choose a carpet design that does not hide the edge of steps on the stairs. ? Check any carpeting to make sure that it is firmly attached to the stairs. Fix any carpet that is loose or worn. What can I do on the outside of my home? ? Use bright outdoor lighting. ? Regularly repair the edges of walkways and driveways and fix any cracks. ? Remove high doorway thresholds. ? Trim any shrubbery on the main path into your home. ? Regularly check that handrails are securely fastened and in good repair. Both sides of all steps should have handrails. ? Install guardrails along the edges of any raised decks or porches. ? Clear walkways of debris and clutter, including tools and rocks. ? Have leaves, snow, and ice cleared regularly. ? Use sand or salt on walkways during winter months. ? In the garage, clean up any spills right away, including grease or oil spills. What other actions can I take? ? Wear closed-toe shoes that fit well and support your feet. Wear shoes that have rubber soles or low heels. ? Use mobility aids as needed, such as canes, walkers, scooters, and crutches. ? Review your medicines with your health care provider. Some medicines can cause dizziness or changes in blood pressure, which increase your risk of falling. Talk with your health care provider about other ways that you can decrease your risk of falls. This may include working with a physical therapist or adjunct trainer to improve your strength, balance, and endurance. Where to find more information ? Centers for Disease Control and Prevention, STEAD[place]: www.cdc.gov ? National Sledge on Aging: www.barak.nih.gov Contact a health care provider if: ? You are afraid of falling at home. ? You feel weak, drowsy, or dizzy at home. ? You fall at home. Summary ? There are many simple things that you can do to make your home safe and to help prevent falls. ? Ways to make your home safe include removing tripping hazards and installing grab bars in the bathroom. ? Ask for help when making these changes in your home. This information is not intended to replace advice given to you by your health ca (more content not included)... Normal [facility] Family Medicine Office/Clini c Noteon 11-03-2022 Family Medicine Office/Clinic Note Chief Complaint one month follow up covid HPI Staff One month follow up after covid questions/concerns: stomach is still bothering him, it's upset and has been for the last 2 days, no vomiting, has pain in the abd area. Eyes feel like they have dirt in there, a dry gritty feeling. Runs out of energy so quickly. Also says he's not eating well as everything tastes salty and isn't adding salt anymore than she normally would when she prepares meals History of Present Illness Jeremie Bennett is an 82-year-old male who presents today for an evaluation of fatigue and abdominal pain. He states he has not told his medical grade shoemaker is Dr. Arellano about his fatigue. He has been experiencing a decrease in appetite and weight loss. He has been increasing his water intake. He reports he has been experiencing abdominal pain, nausea and bloating that started yesterday morning. His last bowel movement was yesterday. He notes he had 2 bowel movements yesterday and the third time he did not make it to the bathroom on time. His abdominal pain is the same today. He rates his pain as a 5 or 6 out of 10 and describes it as a steady dull ache. He denies any vomiting. He has a history of chronic abdominal pain that improves with dicyclomine. He has had 4 abdominal surgeries in the past. Review of Systems PHQ Score Initial Depression Screen Score: 2 Physical Exam Vitals & Measurements HR: 78(Peripheral) RR: 16 BP: 126/68 SpO2: 95% HT: 66 in HT: 167.0 cm WT: 79.1 kg WT: 174.02 lb BMI: 28.36 General: alert, no acute distress Cardiovascular: regular rate and rhythm, normal peripheral perfusion Respiratory: Lungs CTA, respirations non labored Extremities: no deformity, no trauma Neurological: oriented x 4, LOC appropriate for age, CN II-XII intact, motor strength equal & normal bilaterally, speech normal Abdomen: Patient is minimally tender to palpation. Patient has hyperactive bowel sounds. No rebound or guarding. Assessment/Plan 1. COVID-19 (U07.1: COVID-19) Patient is still having issues with fatigue. Given his history of diabetes, I am asking the patient to reach out to his medical grade shoemaker for possible stress test to make sure that his heart did not take damage from COVID-19. We will recheck the patient in 1 month to make sure that he is no longer having this fatigue or starting to feel better. 2. Generalized abdominal pain (R10.84: Generalized abdominal pain) Unsure if this is secondary to increased gas, if this is secondary to constipation or something else. We will continue to monitor and we will have the patient follow in 1 month. If no improvement, patient should be giving us a call and letting us know. Patient did have decreased pain with dicyclomine, which makes me wonder if the patient is having intermittent constipation with this. 3. BMI 28.0-28.9,adult (Z68.28: Body mass index [BMI] 28.0-28.9, adult) BMI education given. 4. Over weight (E66.3: Overweight) As above. Portions of this record may have been created with voice recognition artificial intelligence software, specifically [employer], [employer] and or [employer]. Substitutions may have occurred due to the inherent limitations of voice recognition and artificial intelligence software. ATTESTATION: Documentation services were performed after patient or guardian consented to allow [employer] to record this visit. OS[employer] marketing content specialist and provider reviewed before signing. OSVALDO: Rocky Krause Follow-up No qualifying data available Problem List/Past Medical History Ongoing BMI 30.0-30.9,adult COVID-19 Diabetic autonomic neuropathy associated with type 2 diabetes mellitus GERD with apnea Glaucoma Hypercholesterolemia Hypertension Leaking of urine Lower abdominal pain Mixed incontinence Numbness of right hand Osteoarthritis Pacemaker Personal history of prostate cancer Prostatitis PUD (peptic ulcer disease) Right flank pain, chronic Right-sided chest wall pain Sleep apnea Type 2 diabetes mellitus without complication, without long-term current use of insulin Upper abdominal pain Urinary incontinence without sensory awareness Vitamin D deficiency Historical No qualifying data Procedure/Surgical History Esophagogastroduodenosc opy (05/20/2020), Angioplasty, Cardiac pacemaker procedure, Cataract, Cholecystectomy, Colonoscopy, Hernia repair, Prostate excision, Tonsillectomy, Vasectomy. Medications Albuterol (Eqv-ProAir HFA) 90 mcg/inh inhalation aerosol, 2 puff(s), Inhalation, q6hr amLODIPine 5 mg Tab, 5 mg= 1 tab(s), Oral, Daily Aspir 81, 81 mg, Oral, Daily Crestor 10 mg Tab, 10 mg= 1 tab(s), Oral, Daily dicyclomine 10 mg Cap, 10 mg= 1 cap(s), Oral, QID dorzolamide ophthalmic 2% solution, 1 drop(s), OPTH, BID Flonase 0.05 mg/inh [place], 1 spray(s), Nasal, BID furosemide 20 mg Tab, 20 mg= 1 tab(s), Oral, Daily gabapentin 600 mg Tab, 600 mg, Oral, TID irbesartan 300 mg Tab, 300 mg= 1 tab (more content not included)... Normal [facility] Comment on above: Result Comment: Elec tronically Signed By: Sabino Cooper MD\.br\Date and Time Signed: 11/03/22 11:45 EDT\.br\Electronically Co-Signed By: Rocky Krause\.br\Date and Time Co-Signed: 11/02/22 15:41 EDT RAD - MISCon 11-03-2022 RAD - MIS [id number] D:127 Normal [facility] Ambulatory Visit Summaryon 0 11-02-2022 Ambulatory Visit Summary JEREMIE BENNETT :1940 Visit Date:11/02/2022 Ambulatory Visit Instructions Your Diagnosis COVID-19 Generalized abdominal pain BMI 28.0-28.9,adult Over weight Your Care Team Attending Physician - Sabino Cooper MD Primary Care Physician - Sabino Cooper MD This Is Your Medications List Contact prescribing physician if questions or concerns Misc Prescription (Misc DME Prescription) Misc Prescription (Misc DME Prescription) albuterol (Albuterol (Eqv-ProAir HFA) 90 mcg/inh inhalation aerosol) amlodipine (amLODIPine 5 mg Tab) aspirin (Aspir 81) clopidogrel (Plavix 75 mg Tab) dicyclomine (dicyclomine 10 mg Cap) dorzolamide ophthalmic (dorzolamide ophthalmic 2% solution) fluticasone nasal (Flonase 0.05 mg/inh [place]) furosemide (furosemide 20 mg Tab) gabapentin (gabapentin 600 mg Tab) irbesartan (irbesartan 300 mg Tab) isosorbide mononitrate latanoprost ophthalmic loperamide (loperamide 2 mg Tab) metformin (metformin 500 mg ER Tab) multivitamin with minerals (Multivitamin, Therapeutic w/ Minerals) omeprazole (omeprazole 40 mg Cap-DR) rosuvastatin (Crestor 10 mg Tab) sotalol (sotalol 80 mg Tab) tizanidine (tiZANidine 4 mg Tab) [Image Removed: STOP]Stop taking these medications fluticasone (fluticasone propionate) Procedures Performed Esophagogastroduodenosc opy (05/20/2020), Angioplasty, Cardiac pacemaker procedure, Cataract, Cholecystectomy, Colonoscopy, Hernia repair, Prostate excision, Tonsillectomy, Vasectomy. Discharge Vitals Heart Rate (Peripheral) 78 Respiratory Rate 16 Blood Pressure 126/68 Height 167.0 cm Height 66 in Weight 79.1 kg Weight 174.02 lb BMI 28.36 What to do next Scheduled Follow-Up Appointments Wednesday 2:00 PM EDT With: Where: [facility] Normal [address] [id number]- \.br\ Medications\.br\ What How Much When Instructions\.br \ Unchanged albuterol (Albuterol (Eqv-ProAir HFA) 90 mcg/ inh inhalation aerosol) 2 Puffs Inhalation Every 6 hours or cheapest alternative Contact prescribing physician if questions or concerns \.br\ Unchanged amlodipine (amLODIPine 5 mg Tab) 1 Tablets By Mouth Every day Contact prescribing physician if questions or concerns \.br\ Unchanged aspirin (Aspir 81) 81 Milligram By Mouth Every day Contact prescribing physician if questions or concerns \.br\ Unchanged clopidogrel (Plavix 75 mg Tab) 1 Tablets By Mouth Every day Contact prescribing physician if questions or concerns \.br\ Unchanged dicyclomine (dicyclomine 10 mg Cap) 1 Capsules By Mouth 4 times a day Contact prescribing physician if questions or concerns \.br\ Unchanged dorzolamide ophthalmic (dorzolamide ophthalmic 2% solution) 1 Drops Ophthalmic 2 times a day each eye Contact prescribing physician if questions or concerns \.br\ Unchanged fluticasone nasal (Flonase 0.05 mg/ inh [place]) 1 Sprays Nasal Inhalation 2 times a day each nostril Contact prescribing physician if questions or concerns \.br\ Unchanged furosemide (furosemide 20 mg Tab) 1 Tablets By Mouth Every day Contact prescribing physician if questions or concerns \.br\ Unchanged gabapentin (gabapentin 600 mg Tab) 600 Milligram By Mouth 3 times a day Contact prescribing physician if questions or concerns \.br\ Unchanged irbesartan (irbesartan 300 mg Tab) 1 Tablets By Mouth Every day Contact prescribing physician if questions or concerns \.br\ Unchanged isosorbide mononitrate 30 Milligram By Mouth Once a day (in the morning) Contact prescribing physician if questions or concerns \.br\ Unchanged latanoprost ophthalmic Once a day (in the evening) Contact prescribing physician if questions or concerns \.br\ Unchanged loperamide (loperamide 2 mg Tab) 1 Tablets By Mouth Every 4 hours Contact prescribing physician if questions or concerns \.br\ Unchanged metformin (metformin 500 mg ER Tab) By Mouth 2 times a day Contact prescribing physician if questions or concerns \.br\ Unchanged Misc Prescription (Misc DME Prescription) See instructions one touch ultra test strips test sugars once a day Contact prescribing physician if questions or concerns \.br\ Unchanged Misc Prescription (Misc DME Prescription) See instructions one touch ultra lancets Use to test sugars once a day Contact prescribing physician if questions or concerns \.br\ Unchanged multivitamin with minerals (Multivitamin, Therapeutic w/ Minerals) By Mouth Every day Contact prescribing physician if questions or concerns \.br\ Unchanged omeprazole (omeprazole 40 mg Cap-DR) 40 Milligram By Mouth Every day Contact prescribing physician if questions or concerns \.br\ Unchanged rosuvastatin (Crestor 10 mg Tab) 1 Tablets By Mouth Every day Contact prescribing physician if questions or concerns \.br\ Unchanged sotalol (sotalol 80 mg Tab) 0.5 tab By Mouth 2 times a day Contact prescribing physician if questions or concerns \.br\ Unchanged tizanidine (tiZANidine 4 mg Tab) 1 Tablets By Mouth Every day Contact prescribing physician if questions or concerns \.br\ \.br\ What How Much When Comments\.br\ Stop Taking fluticasone (fluticasone propionate) 50 Microgram Inhalation 2 times a day\.br\ Allergies\.br\ Adhesive Bandage (Rash)\.br\ Niaspan ER (Itching)\.br\ Problems\.br\ Ongoing - Any problem that you are currently receiving treatment for.\.br\ BMI 30.0-30.9,adult\ .br\ COVID-19\.br\ Diabetic autonomic neuropathy associated with type 2 diabetes mellitus\.br\ GERD with apnea\.br\ Glaucoma\.br\ Hypercholesterol emia\.br\ Hypertension\.br \ Leaking of urine\.br\ Lower abdominal pain\.br\ Mixed incontinence\.br \ Numbness of right hand\.br\ Osteoarthritis\. br\ Pacemaker\.br\ Personal history of prostate cancer\.br\ Prostatitis\.br\ PUD (peptic ulcer disease)\.br\ Right flank pain, chronic\.br\ Right-sided chest wall pain\.br\ Sleep apnea\.br\ Type 2 diabetes mellitus without complication, without long-term current use of insulin\.br\ Upper abdominal pain\.br\ Urinary incontinence without sensory awareness\.br\ Vitamin D deficiency\.br\ \.br\ [facility] Consultation Noteon 10-29-19 Consultation Note [id number] D:127 Normal [facility] Family Medicine Office/Clini c Noteon 10-06-2022 Family Medicine Office/Clinic Note Chief Complaint ER follow up covid + 09/22 HPI Staff ER follow up 09/24, covid + on 09/22 C/O: Duration:09/21/22 started with cough, tested + next day _ Body aches: yes Chills: no Fatigue: yes Cough: yes but better Sore throat: no Fever: no Headache: yes Nasal congestion: no Loss of taste: yes Loss of smell: no Eye itching/watering: yes Sneezing: yes SOB: yes if exerts himself Known Exposure: no questions/concerns: upset stomach and diarrhea Rxed [id number] twice a day from the ER History of Present Illness Jeremie Bennett is an 81-year-old male who presents today for a follow-up evaluation of COVID-19. The patient reports that he is still taking Augmentin. He is experiencing diarrhea, fatigue, shortness of breath and nausea. He denies any chest pain. The adult female reports that on 09/30/2021, he had a pre-syncope episode after climbing the stairs. He is scheduled for a back injection on 10/20/2021. Review of Systems PHQ Score Initial Depression Screen Score: 0 Physical Exam Vitals & Measurements HR: 66(Peripheral) RR: 20 BP: 122/60 SpO2: 93% HT: 66 in HT: 167 cm WT: 78.95 kg WT: 173.69 lb BMI: 28.31 General: alert, no acute distress ENMT: oral mucosa moist, no pharyngeal erythema or exudate Cardiovascular: regular rate and rhythm, normal peripheral perfusion Respiratory: Lungs CTA, respirations non labored Extremities: no deformity, no trauma Neurological: oriented x 4, LOC appropriate for age, CN II-XII intact, motor strength equal & normal bilaterally, speech normal Assessment/Plan We will see the patient back in 1 month. 1. COVID-19 (U07.1: COVID-19) We will have the patient stop the Augmentin as this is most likely the cause of his GI upset. We will have the patient try albuterol to help with the lungs. If this does not help, we will increase to a steroid. Patient has been given precautions in detail. When to follow up also discussed. When to go to the ER was discussed with the patient. Discussed how we do not want to use a steroid at this time given his history of diabetes and well controlled. Patient will reach out to his pain management group to make sure he can have his procedure next week. 2. BMI 28.0-28.9,adult (Z68.28: Body mass index [BMI] 28.0-28.9, adult) BMI education given. 3. 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 ATTESTATION: Documentation services were performed after patient or guardian consented to allow Willy Montano to record this visit. OSVALDO marketing content specialist and provider reviewed before signing. OSVALDO: Rocky Krause Follow-up No qualifying data available Problem List/Past Medical History Ongoing BMI 30.0-30.9,adult COVID-19 Diabetic autonomic neuropathy associated with type 2 diabetes mellitus GERD with apnea Glaucoma Hypercholesterolemia Hypertension Leaking of urine Lower abdominal pain Mixed incontinence Numbness of right hand Osteoarthritis Pacemaker Personal history of prostate cancer Prostatitis PUD (peptic ulcer disease) Right flank pain, chronic Right-sided chest wall pain Sleep apnea Type 2 diabetes mellitus without complication, without long-term current use of insulin Upper abdominal pain Urinary incontinence without sensory awareness Vitamin D deficiency Historical No qualifying data Procedure/Surgical History Esophagogastroduodenosc opy (05/20/2020), Angioplasty, Cardiac pacemaker procedure, Cataract, Cholecystectomy, Colonoscopy, Hernia repair, Prostate excision, Tonsillectomy, Vasectomy. Medications Albuterol (Eqv-ProAir HFA) 90 mcg/inh inhalation aerosol, 2 puff(s), Inhalation, q6hr amLODIPine 5 mg Tab, 5 mg= 1 tab(s), Oral, Daily Aspir 81, 81 mg, Oral, Daily cholestyramine 4 g/5 g Oral Pwdr, 1 packet(s), Oral, TID Crestor 10 mg Tab, 10 mg= 1 tab(s), Oral, Daily dorzolamide ophthalmic 2% solution, 1 drop(s), OPTH, BID Flonase 0.05 mg/inh [place], 1 spray(s), Nasal, BID fluticasone propionate, 50 mcg, Inhalation, BID furosemide 20 mg Tab, 20 mg= 1 tab(s), Oral, Daily gabapentin 600 mg Tab, 600 mg, Oral, TID irbesartan 300 mg Tab, 300 mg= 1 tab(s), Oral, Daily isosorbide mononitrate, 30 mg, Oral, qAM latanoprost ophthalmic, qPM loperamide 2 mg Tab, 2 mg= 1 tab(s), Oral, q4hr metformin 500 mg ER Tab, Oral, BID [facility] Prescription, See Instructions [facility] Prescription, See Instructions Multivitamin, Therapeutic w/ Minerals, Oral, Daily omeprazole 40 mg Cap-DR, 40 mg, Oral, Daily Plavix 75 mg Tab, 75 mg= 1 tab(s), Oral, Daily sotalol 80 mg Tab, 0.5 tab, Oral, BID tiZANidine 4 mg Tab, 4 mg= 1 tab(s), Oral, Daily Allergies Adhesive Bandage (Rash) Niaspan ER (Itching) Social History Alcohol - Denies Alcohol Use, 04/25/2020 Substance Abuse - Denies Substance Abuse, 04/25/2020 Tobacco - Denies Tobacco Use, 04/25/2020 Former smoker, quit more than 30 days ago Tobacco Use:. Never Smoke (more content not included)... 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 Your Care Team Attending Physician - Sabino Cooper MD Primary Care Physician - Sabino Cooper MD This Is Your Medications List albuterol (Albuterol (Eqv-ProAir HFA) 90 mcg/inh inhalation aerosol) Contact prescribing physician if questions or concerns Misc Prescription (Misc DME Prescription) Misc Prescription (Misc DME Prescription) amlodipine (amLODIPine 5 mg Tab) aspirin (Aspir 81) cholestyramine (cholestyramine 4 g/5 g Oral Pwdr) clopidogrel (Plavix 75 mg Tab) dorzolamide ophthalmic (dorzolamide ophthalmic 2% solution) fluticasone (fluticasone propionate) fluticasone nasal (Flonase 0.05 mg/inh [place]) furosemide (furosemide 20 mg Tab) gabapentin (gabapentin 600 mg Tab) irbesartan (irbesartan 300 mg Tab) isosorbide mononitrate latanoprost ophthalmic loperamide (loperamide 2 mg Tab) metformin (metformin 500 mg ER Tab) multivitamin with minerals (Multivitamin, Therapeutic w/ Minerals) omeprazole (omeprazole 40 mg Cap-DR) rosuvastatin (Crestor 10 mg Tab) sotalol (sotalol 80 mg Tab) tizanidine (tiZANidine 4 mg Tab) Procedures Performed Esophagogastroduodenosc opy (05/20/2020), Angioplasty, Cardiac pacemaker procedure, Cataract, Cholecystectomy, Colonoscopy, Hernia repair, Prostate excision, Tonsillectomy, Vasectomy. Discharge Vitals Heart Rate (Peripheral) 66 Respiratory Rate 20 Blood Pressure 122/60 Height 167 cm Height 66 in Weight 78.95 kg Weight 173.69 lb BMI 28.31 What to do next Scheduled Follow-Up Appointments Wednesday 1:40 PM EDT With: Hermes CASON, Sabino Rosa Where: [id number] [place] [address]- \.br\ Medications\.br\ What How Much When Instructions\.br \ New albuterol (Albuterol (Eqv-ProAir HFA) 90 mcg/ inh inhalation aerosol) 2 Puffs Inhalation Every 6 hours or cheapest alternative Pickup at [facility] ([facility] )\.br\ Unchanged amlodipine (amLODIPine 5 mg Tab) 1 Tablets By Mouth Every day Contact prescribing physician if questions or concerns \.br\ Unchanged aspirin (Aspir 81) 81 Milligram By Mouth Every day Contact prescribing physician if questions or concerns \.br\ Unchanged cholestyramine (cholestyramine 4 g/ 5 g Oral Pwdr) 1 Packets By Mouth 3 times a day Contact prescribing physician if questions or concerns \.br\ Unchanged clopidogrel (Plavix 75 mg Tab) 1 Tablets By Mouth Every day Contact prescribing physician if questions or concerns \.br\ Unchanged dorzolamide ophthalmic (dorzolamide ophthalmic 2% solution) 1 Drops Ophthalmic 2 times a day each eye Contact prescribing physician if questions or concerns \.br\ Unchanged fluticasone (fluticasone propionate) 50 Microgram Inhalation 2 times a day Contact prescribing physician if questions or concerns \.br\ Unchanged fluticasone nasal (Flonase 0.05 mg/ inh [place]) 1 Sprays Nasal Inhalation 2 times a day each nostril Contact prescribing physician if questions or concerns \.br\ Unchanged furosemide (furosemide 20 mg Tab) 1 Tablets By Mouth Every day Contact prescribing physician if questions or concerns \.br\ Unchanged gabapentin (gabapentin 600 mg Tab) 600 Milligram By Mouth 3 times a day Contact prescribing physician if questions or concerns \.br\ Unchanged irbesartan (irbesartan 300 mg Tab) 1 Tablets By Mouth Every day Contact prescribing physician if questions or concerns \.br\ Unchanged isosorbide mononitrate 30 Milligram By Mouth Once a day (in the morning) Contact prescribing physician if questions or concerns \.br\ Unchanged latanoprost ophthalmic Once a day (in the evening) Contact prescribing physician if questions or concerns \.br\ Unchanged loperamide (loperamide 2 mg Tab) 1 Tablets By Mouth Every 4 hours Contact prescribing physician if questions or concerns \.br\ Unchanged metformin (metformin 500 mg ER Tab) By Mouth 2 times a day Contact prescribing physician if questions or concerns \.br\ Unchanged Misc Prescription (Misc DME Prescription) See instructions one touch ultra test strips test sugars once a day Contact prescribing physician if questions or concerns \.br\ Unchanged Misc Prescription (Misc DME Prescription) See instructions one touch ultra lancets Use to test sugars once a day Contact prescribing physician if questions or concerns \.br\ Unchanged multivitamin with minerals (Multivitamin, Therapeutic w/ Minerals) By Mouth Every day Contact prescribing physician if questions or concerns \.br\ Unchanged omeprazole (omeprazole 40 mg Cap-DR) 40 Milligram By Mouth Every day Contact prescribing physician if questions or concerns \.br\ Unchanged rosuvastatin (Crestor 10 mg Tab) 1 Tablets By Mouth Every day Contact prescribing physician if questions or concerns \.br\ Unchanged sotalol (sotalol 80 mg Tab) 0.5 tab By Mouth 2 times a day Contact prescribing physician if questions or concerns \.br\ Unchanged tizanidine (tiZANidine 4 mg Tab) 1 Tablets By Mouth Every day Contact prescribing physician if questions or concerns \.br\ Pharmacy Information\.br\ [facility] ([facility] ): [address] [phone]\.br\ Allergies\.br\ Adhesive Bandage (Rash)\.br\ Niaspan ER (Itching)\.br\ Problems\.br\ Ongoing - Any problem that you are currently receiving treatment for.\.br\ BMI 30.0-30.9,adult\ .br\ COVID-19\.br\ Diabetic autonomic neuropathy associated with type 2 diabetes mellitus\.br\ GERD with apnea\.br\ Glaucoma\.br\ Hypercholesterol emia\.br\ Hypertension\.br \ Leaking of urine\.br\ Lower abdominal pain\.br\ Mixed incontinence\.br \ Numbness of right hand\.br\ Osteoarthritis\. br\ Pacemaker\.br\ Personal history of prostate cancer\.br\ Prostatitis\.br\ PUD (peptic ulcer disease)\.br\ Right flank pain, chronic\.br\ Right-sided chest wall pain\.br\ Sleep apnea\.br\ Type 2 diabetes mellitus without complication, without long-term current use of insulin\.br\ Upper abdominal pain\.br\ Urinary incontinence without sensory awareness\.br\ Vitamin D deficiency\.br\ \.br\ [facility] CBC AUTO DIFFon 09-29-2022 BASO # 0.1 103/ul Normal 0.0-0.1 [facility] Comment on above: Performed By: #### C BC #### [facility] [address] [address] [address] Ramsey Sanchez Basophils/100 WBC (Bld) 0.7 % Normal 0.2-2.0 [facility] Comment on above: Performed By: #### C BC #### [facility] [address] [place] [address] Dr. Ramsey Sanchez EO # 0.2 103/ul Normal 0.0-0.7 [facility] Comment on above: Performed By: #### C BC #### [facility] [address] [address] [address] Ramsey Sanchez Eosinophils/100 WBC (Bld) 1.5 % Normal 0.9-7.0 [facility] Comment on above: Performed By: #### C BC #### [facility] [address] [address] [address] Ramsey Sanchez Erythrocyte distribution width (RBC) [Ratio] 13.6 % Normal 11.0-15.0 [facility] Comment on above: Performed By: #### C BC #### [facility] [address] [address] [address] Ramsey Sanchez Hematocrit (Bld) [Volume fraction] 43.5 % Normal 42.0-54.0 [facility] Comment on above: Performed By: #### C BC #### [facility] [address] [place] [address] Dr. Ramsey Sanchez Hemoglobin (Bld) [Mass/Vol] 13.9 g/dL Critically low 14.0-18.0 [facility] Comment on above: Performed By: #### C BC #### [facility] [address] [place] [address] Dr. Ramsey Sanchez IG # 0.29 10e3/ul Critically high 0.00-0.03 [facility] Comment on above: Performed By: #### C BC #### [facility] [address] [place] [address] Dr. Ramsey Sanchez IG % 2.9 % Critically high 0.0-0.5 [facility] Comment on above: Performed By: #### C BC #### [facility] [address] [place] [address] Dr. Ramsey Sanchez LYMPH # 2.1 103/ul Normal 1.2-3.8 [facility] Comment on above: Performed By: #### C BC #### [facility] [address] [place] [address] Dr. Ramsey Sanchez Lymphocytes/100 WBC (Bld) 20.8 % Normal 20.5-60.0 [facility] Comment on above: Performed By: #### C BC #### [facility] [address] [place] [address] Dr. Ramsey Sanchez MANUAL DIFF REQ NO Normal [facility] Comment on above: Performed By: #### C BC #### [facility] [address] [place] [address] Dr. Ramsey Sanchez MCH (RBC) [Entitic mass] 29.6 pg Normal 25.9-34.0 [facility] Comment on above: Performed By: #### C BC #### [facility] [address] [place] [address] Dr. Ramsey Sanchez MCHC (RBC) [Mass/Vol] 32.0 g/dL Normal 29.9-35.2 [facility] Comment on above: Performed By: #### C BC #### [facility] [address] [place] [address] Dr. Ramsey Sanchez MCV (RBC) [Entitic vol] 92.6 fL Normal 80.0-94.0 [facility] Comment on above: Performed By: #### C BC #### [facility] [address] [place] [address] Dr. Ramsey Sanchez MONO # 0.8 103/ul Normal 0.3-0.8 [facility] Comment on above: Performed By: #### C BC #### [facility] [address] [place] [address] Dr. Ramsey Sanchez Monocytes/100 WBC (Bld) 8.3 % Normal 1.7-12.0 [facility] Comment on above: Performed By: #### C BC #### [facility] [address] [place] [address] Dr. Ramsey Sanchez NEUT # 6.5 103/ul Normal 1.4-6.5 [facility] Comment on above: Performed By: #### C BC #### [facility] [address] [place] [address] Dr. Ramsey Sanchez Neutrophils/100 WBC (Bld) 65.8 % Normal 43.0-75.0 [facility] Comment on above: Performed By: #### C BC #### [facility] [address] [place] [address] Dr. Ramsey Sanchez Platelet mean volume (Bld) [Entitic vol] 11.1 fL Normal 9.5-13.5 [facility] Comment on above: Performed By: #### C BC #### [facility] [address] [place] [address] Dr. Ramsey Sanchez PLT 198 103/ul Normal 150-450 [facility] Comment on above: Performed By: #### C BC #### [facility] [address] [place], [place] [id number] Dr. Ramsey Sanchez RBC 4.70 106/ul Normal 4.70-6.10 [facility] Comment on above: Performed By: #### C BC #### [facility] [address] [place] [address] Dr. Ramsey Sanchez WBC 9.9 103/ul Normal 4.0-11.0 [facility] Comment on above: Performed By: #### C BC #### [facility] [address] [address] [address] Ramsey Sanchez ER URINE PROFILEon 3 Bilirubin Ql (U) Negative Normal NEGATIVE [facility] Comment on above: Performed By: #### E RUR #### [facility] [address] [place] [address] Dr. Ramsey Sanchez Clarity (U) CLEAR Normal CLEAR [facility] Comment on above: Performed By: #### E RUR #### [facility] [address] [place] [address] Dr. Ramsey Sanchez Color (U) YELLOW Normal YELLOW [facility] Comment on above: Performed By: #### E RUR #### [facility] [address] [place] [address] Dr. Ramsey IVORY A micrscopic examination will be performed if indicated. Normal [facility] Comment on above: Performed By: #### E RUR #### [facility] [address] [place] [address] Dr. Ramsey Sanchez Glucose Ql (U) Negative Normal NEGATIVE [facility] Comment on above: Performed By: #### E RUR #### [facility] [address] [place] [address] Dr. Ramsey Sanchez Hemoglobin Ql (U) Negative Normal NEGATIVE [facility] Comment on above: Performed By: #### E RUR #### [facility] [address] [place] [address] Dr. Ramsey Sanchez Ketones Ql (U) Negative Normal NEGATIVE [facility] Comment on above: Performed By: #### E RUR #### [facility] [address] [place] [address] Dr. Ramsey Sanchez LEUKOCYTES Negative Normal NEGATIVE [facility] Comment on above: Performed By: #### E RUR #### [facility] [address] [place] [address] Dr. Ramsey Sanchez Nitrite Ql (U) Negative Normal NEGATIVE [facility] Comment on above: Performed By: #### E RUR #### [facility] [address] [place] [address] Dr. Ramsey Sanchez pH (U) 5.5 [pH] Normal 5-9 [facility] Comment on above: Performed By: #### E RUR #### [facility] [address] [place] [address] Dr. Ramsey Sanchez SPEC GRAVITY 1.020 Normal 1.005-<=1.025 [facility] Comment on above: Performed By: #### E RUR #### [facility] [address] [place] [address] Dr. Ramsey Sanchez UA PROTEIN Negative Normal NEGATIVE/ TRACE [facility] Comment on above: Performed By: #### E RUR #### [facility] [address] [place] [address] Dr. Ramsey Sanchez UR MICRO IND NOT INDICATED Normal [facility] Comment on above: Performed By: #### E RUR #### [facility] [address] [place] [address] Dr. Ramsey Sanchez Urobilinogen Qn (U) 0.2 {Leatha'U}/dL Normal 0.2 - 1.0 [facility] Comment on above: Performed By: #### E RUR #### [facility] [address] [place] [address] Dr. Ramsey Sanchez LACTATE/LACTIC ACIDon 2022 Lactate [Moles/Vol] 1.7 mmol/L Normal 0.4-2.0 [facility] Comment on above: Performed By: #### L ACT #### [facility] [address] [place] [address] Dr. Ramsey Sanchez PROF 14(COMP METB)on 023 Albumin [Mass/Vol] 3.1 g/dL Critically low 3.4-5.0 [facility] Comment on above: Performed By: #### C MP, HSTROPN #### [facility] [address] [place] [address] Dr. Ramsey Sanchez Albumin/Globulin [Mass ratio] 0.8 {ratio} Normal [facility] Comment on above: Performed By: #### C MP, HSTROPN #### [facility] [address] [address] [address] Ramsey Sanchez ALP [Catalytic activity/Vol] 73 U/L Normal 46-116 [facility] Comment on above: Performed By: #### C MP, HSTROPN #### [facility] [address] [address] [address] Ramsey Sanchez ALT [Catalytic activity/Vol] 22 U/L Normal 16-63 [facility] Comment on above: Performed By: #### C MP, HSTROPN #### [facility] [address] [address] [address] Ramsey Sanchez Anion gap [Moles/Vol] 13.5 mmol/L Normal [facility] Comment on above: Performed By: #### C MP, HSTROPN #### [facility] [address] [address] [address] Ramsey Sanchez AST [Catalytic activity/Vol] 26 U/L Normal 15-37 [facility] Comment on above: Performed By: #### C MP, HSTROPN #### [facility] [address] [address] [address] Ramsey Sanchez Bilirubin [Mass/Vol] 0.4 mg/dL Normal 0.2-1.0 [facility] Comment on above: Performed By: #### C MP, HSTROPN #### [facility] [address] [address] [address] Ramsey Sanchez Calcium [Mass/Vol] 8.4 mg/dL Critically low 8.5-10.1 [facility] Comment on above: Performed By: #### C MP, HSTROPN #### [facility] [address] [address] [address] Ramsey Sanchez Chloride [Moles/Vol] 107 mmol/L Normal 98-107 [facility] Comment on above: Performed By: #### C MP, HSTROPN #### [facility] [address] [address] [address] Ramsey Sanchez CO2 [Moles/Vol] 26.1 mmol/L Normal 21.0-32.0 [facility] Comment on above: Performed By: #### C LISANDRO, HSTROPN #### [facility] [address] [address] [address] Ramsey Sanchez Creatinine [Mass/Vol] 0.94 mg/dL Normal 0.70-1.30 [facility] Comment on above: Performed By: #### C LISANDRO, HSTROPN #### [facility] [address] [address] [address] Ramsey Sanchez EGFR-AF PORTUGUESE >60 Normal >=60 [facility] Comment on above: Performed By: #### C LISANDRO, HSTROPN #### [facility] [address] [address] [address] Ramsey Sanchez EGFR-NON AF [place]UGUESE >60 Normal >=60 [facility] Comment on above: Performed By: #### C LISANDRO, HSTROPN #### [facility] [address] [address] [address] Ramsey Sanchez Globulin (S) [Mass/Vol] 3.7 g/dL Normal [facility] Comment on above: Performed By: #### C LISANDRO, HSTROPN #### [facility] [address] [address] [address] Ramsey Sanchez Glucose [Mass/Vol] 118 mg/dL Critically high 74-106 [facility] Comment on above: Performed By: #### C LISANDRO, HSTROPN #### [facility] [address] [address] [address] Ramsey Sanchez Potassium [Moles/Vol] 3.6 mmol/L Normal 3.5-5.1 [facility] Comment on above: Performed By: #### C LISANDRO, HSTROPN #### [facility] [address] [address] [address] Ramsey Sanchez Protein [Mass/Vol] 6.8 g/dL Normal 6.4-8.2 [facility] Comment on above: Performed By: #### C LISANDRO, HSTROPN #### [facility] [address] [address] [address] Ramsey Sanchez Sodium [Moles/Vol] 143 mmol/L Normal 136-145 [facility] Comment on above: Performed By: #### C MP, HSTROPN #### [facility] [address] [place] [address] Dr. Ramsey Sanchez Urea nitrogen [Mass/Vol] 19.0 mg/dL Critically high 7.0-18.0 [facility] Comment on above: Performed By: #### C MP, HSTROPN #### [facility] [address] [place] [address] Dr. Ramsey Sanchez Urea nitrogen/Creatinin e [Mass ratio] 20.2 mg/mg Normal [facility] Comment on above: Performed By: #### C LISANDRO, HSTROPN #### [facility] [address] [place] [address] Dr. Ramsey Sanchez TROPONIN, HIGH SENSITIVITYon 09-29-2022 HSTROP 9.8 pg/mL Normal 4.0-76.1 [facility] Comment on above: Result Comment: CUT- OFF POINTS HAVE BEEN ESTABLISHED BASED ON THE FOURTH UNIVERSAL DEFINITIONS OF MYOCARDIAL INFARCTION. THE UPPER REFERENCE LIMIT (URL) OF TROPONIN, DEFINED THE 99TH PERCENTILE OF cTnI DISTRIBUTION IN A REFERENCE POPULATION, HAS BEEN CONFIRMED THE DECISION THRESHOLD FOR CO DIAGNOSIS. Performed By: #### C LISANDRO, HSTROPN #### [facility] [address] [place] [address] Dr. Ramsey Sanchez XR CHEST 1 Von 09-29-2022 XR CHEST 1 V EXAM: XR CHEST 1 V a t 1557 hours HISTORY: SHORTNESS OF BREATH COMPARISON: 09/24/2022 TECHNIQUE: AP upright portable chest x-ray FINDINGS: There is been interval clearing of the right lung base. The right lung and the left upper lung are clear. Atypical opacity projects over the left lung base, which most likely is extrinsic to the patient, obscuring detail. There is no evidence of an effusion or pneumothorax. The heart is borderline enlarged without overt cardiac decompensation. The left-sided transvenous pacemaker remains in place. The osseous structures are grossly intact. IMPRESSION: Improved interval aeration of the right lung base. The left lung base is obscured by opacities and cannot be adequately evaluated. There is no other evidence of a focal infiltrate, effusion or pneumothorax. A short-term follow-up study is recommended with attention to moving hardware and overlying objects out of the [id number]. Electronically authenticated by: ALANNA CARLOS Date: 2022-09-29 16:37 Normal [facility] ED Note-Physicianon 09-28-19 23 ED Note-Physician Basic Information Time Seen: Braden Stafford PA-C 09/22/2022 16:38 Chief Complaint pt reports he is cough, sneezing, and has body aches. denies cp/sob. pt covid + today History of Present Illness 81-year-old male comes to the ED for evaluation of cough and congestion. Symptoms started a few days ago of cough and body aches. He went to urgent care today and tested positive for COVID-19. He was then prescribed Medrol Dosepak and azithromycin. He has not started the medications. He felt he needed further evaluation and comes to the ED for that evaluation. He denies any associated chest pain abdominal pain nausea vomiting or diarrhea. At times he does have shortness of breath. He has no history of chronic lung disease. Non-smoker. No chest pain or abdominal pain. Review of Systems A 10 point review of systems is negative except as noted above. Medical and Surgical History: Reviewed and noted Social history: Lives at home Tobacco: Denies Physical Exam Vitals & Measurements T: 38.5 ?C(Oral) HR: 79(Peripheral) RR: 17 BP: 111/61 SpO2: 93% HT: 167 cm WT: 83.4 kg BMI: 29.9 Nurses notes and vital signs reviewed and patient is not hypoxic. General: Well-appearing, does not appear ill Skin: Warm, dry. Head: Atraumatic. Neck: No JVD. Eye: Normal conjunctiva. Ears, Nose, Mouth, and Throat: Sinus congestion, no difficulty with speaking or swallowing Cardiovascular: Not tachycardic Chest wall: Respiratory: Respirations are nonlabored. Back: Normal range of motion. Musculoskeletal: Normal ROM with no gross deformity. Gastrointestinal: Urological: Neurological: Awake and alert. No focal deficits. Follows commands. Psychiatric: Cooperative. Medical Decision Making Patient appears well on exam. He is awake and alert. He has no chest pain or increased work of breathing. His vital signs are stable. Chest x-ray with possible small infiltrate, but more likely atelectasis. He is already prescribed azithromycin Medrol Dosepak and is discharged home to continue with his medications and follow-up with his PCP. Patient was encouraged to return to the ED if symptoms worsen or change. Assessment/Plan COVID-19 (U07.1: COVID-19) Orders: acetaminophen, 975 mg = 3 tab(s), Tab, Oral, Once, Stop date 09/22/22 17:44:00 EDT, STAT, Start date 09/22/22 17:44:00 EDT, 09/22/22 17:44:00 EDT XR Chest 2 Views Disposition Plan Patient Discharge Condition Disposition: Discharged home Condition: Improved and stable Counseled: Patient and/or family were counseled to workup, results, treatment plan and follow-up recommendations Discharge Prescription List Prescriptions No active prescription medications Follow-up With When Contact Information Sabino Cooper In 3 days 09/25/2022 EDT [address] [id number] [facility] (2) Additional Instructions: Patient Education COVID-19 Attestation Patient seen and evaluated by the physician kennel assistant. Attending physician was present in the emergency department and supervised care. This visit was performed by both the physician and an APC. I performed all aspects of the MDM as documented. This report was transcribed using voice recognition software. Every effort was made to ensure accuracy, however, inadvertently computerized recruitment officer mistakes may be present. Appropriate healthcare PPE was used in evaluating this patient. The patient was placed in a mask. The healthcare provider was wearing mask, gloves, and utilizing proper hand hygiene. All equipment was properly cleansed. Problem List/Past Medical History Ongoing BMI 30.0-30.9,adult Diabetic autonomic neuropathy associated with type 2 diabetes mellitus GERD with apnea Glaucoma Hypercholesterolemia Hypertension Leaking of urine Lower abdominal pain Mixed incontinence Numbness of right hand Osteoarthritis Pacemaker Personal history of prostate cancer Prostatitis PUD (peptic ulcer disease) Right flank pain, chronic Right-sided chest wall pain Sleep apnea Type 2 diabetes mellitus without complication, without long-term current use of insulin Upper abdominal pain Urinary incontinence without sensory awareness Vitamin D deficiency Historical No qualifying data Procedure/Surgical History Esophagogastroduodenosc opy (05/20/2020), Angioplasty, Cardiac pacemaker procedure, Cataract, Cholecystectomy, Colonoscopy, Hernia repair, Prostate excision, Tonsillectomy, Vasectomy. Medications Inpatient No active inpatient medications Home amLODIPine 5 mg Tab, 5 mg= 1 tab(s), Oral, Daily Aspir 81, 81 mg, Oral, Daily cholestyramine 4 g/5 g Oral Pwdr, 1 packet(s), Oral, TID Crestor 10 mg Tab, 10 mg= 1 tab(s), Oral, Daily dorzolamide ophthalmic 2% solution, 1 drop(s), OPTH, BID Flonase 0.05 mg/inh [place], 1 spray(s), Nasal, BID fluticasone propionate, 50 mcg, Inhalation, BID furosemide 20 mg Tab, 20 mg= 1 tab(s), Oral, Daily gabapentin 600 mg Tab, 600 mg, Oral, TID irbesart (more content not included)... Normal [facility] Comment on above: Result Comment: Elec tronically Signed By: Braden Stafford PA-C\.br\Date and Time Signed: 09/22/22 18:15 EDT\.br\Electronically Co-Signed By: Gordy Sánchez DO\.br\Date and Time Co-Signed: 09/27/22 07:11 EDT BNPon 09-25-2022 Natriuretic peptide B (Bld) [Mass/Vol] 720.0 pg/mL Normal <=1,800.0 [facility] Comment on above: Performed By: #### C XSTOOL #### [facility] [address] [address] [address] Ramsey Sanchez CARDIAC RAFI ADMITon 023 CK [Catalytic activity/Vol] 198 U/L Normal 39-308 [facility] Comment on above: Performed By: #### C XSTOOL #### [facility] [address] [address] [address] Ramsey Sanchez CK.MB [Mass/Vol] 2.62 ng/mL Normal <=3.60 [facility] Comment on above: Performed By: #### C XSTOOL #### [facility] [address] [address] [address] Ramsey Sanchez HSTROP 8.8 pg/mL Normal 4.0-76.1 [facility] Comment on above: Result Comment: CUT- OFF POINTS HAVE BEEN ESTABLISHED BASED ON THE FOURTH UNIVERSAL DEFINITIONS OF MYOCARDIAL INFARCTION. THE UPPER REFERENCE LIMIT (URL) OF TROPONIN, DEFINED THE 99TH PERCENTILE OF cTnI DISTRIBUTION IN A REFERENCE POPULATION, HAS BEEN CONFIRMED THE DECISION THRESHOLD FOR CO DIAGNOSIS. Performed By: #### C XSTOOL #### [facility] [address] [place] [address] Dr. Ramsey Sanchez MARILYN 69 ng/mL Normal 16-96 [facility] Comment on above: Performed By: #### C XSTOOL #### [facility] [address] [place] [address] Dr. Ramsey Sanchez CBC AUTO DIFFon 09-25-2022 BASO # 0.0 103/ul Normal 0.0-0.1 [facility] Comment on above: Performed By: #### C BC #### [facility] [address] [place] [address] Dr. Ramsey Sanchez Basophils/100 WBC (Bld) 0.2 % Normal 0.2-2.0 [facility] Comment on above: Performed By: #### C BC #### [facility] [address] [place] [address] Dr. Ramsey Sanchez EO # 0.0 103/ul Normal 0.0-0.7 [facility] Comment on above: Performed By: #### C BC #### [facility] [address] [place] [address] Dr. Ramsey Sanchez Eosinophils/100 WBC (Bld) 0.1 % Critically low 0.9-7.0 [facility] Comment on above: Performed By: #### C BC #### [facility] [address] [place] [address] Dr. Ramsey Sanchez Erythrocyte distribution width (RBC) [Ratio] 14.0 % Normal 11.0-15.0 [facility] Comment on above: Performed By: #### C BC #### [facility] [address] [place] [address] Dr. Ramsey Sanchez Hematocrit (Bld) [Volume fraction] 45.4 % Normal 42.0-54.0 [facility] Comment on above: Performed By: #### C BC #### [facility] [address] [address] [address] Ramsey Sanchez Hemoglobin (Bld) [Mass/Vol] 14.4 g/dL Normal 14.0-18.0 [facility] Comment on above: Performed By: #### C BC #### [facility] [address] [address] [address] Ramsey Sanchez IG # 0.08 10e3/ul Critically high 0.00-0.03 [facility] Comment on above: Performed By: #### C BC #### [facility] [address] [address] [address] Ramsey Sanchez IG % 0.9 % Critically high 0.0-0.5 [facility] Comment on above: Performed By: #### C BC #### [facility] [address] [address] [address] Ramsey Sanchez LYMPH # 1.6 103/ul Normal 1.2-3.8 [facility] Comment on above: Performed By: #### C BC #### [facility] [address] [address] [address] Ramsey Sanchez Lymphocytes/100 WBC (Bld) 17.9 % Critically low 20.5-60.0 [facility] Comment on above: Performed By: #### C BC #### [facility] [address] [address] [address] Ramsey Sanchez MANUAL DIFF REQ NO Normal [facility] Comment on above: Performed By: #### C BC #### [facility] [address] [address] [address] Ramsey Sanchez MCH (RBC) [Entitic mass] 29.8 pg Normal 25.9-34.0 [facility] Comment on above: Performed By: #### C BC #### [facility] [address] [address] [address] Ramsey Sanchez MCHC (RBC) [Mass/Vol] 31.7 g/dL Normal 29.9-35.2 [facility] Comment on above: Performed By: #### C BC #### [facility] [address] [address] [address] Ramsey Sanchez MCV (RBC) [Entitic vol] 94.0 fL Normal 80.0-94.0 [facility] Comment on above: Performed By: #### C BC #### [facility] [address] [address] [address] Ramsey Sanchez MONO # 0.9 103/ul Critically high 0.3-0.8 [facility] Comment on above: Performed By: #### C BC #### [facility] [address] [address] [address] Ramsey Sanchez Monocytes/100 WBC (Bld) 9.6 % Normal 1.7-12.0 [facility] Comment on above: Performed By: #### C BC #### [facility] [address] [place] [address] Dr. Ramsey Sanchez NEUT # 6.3 103/ul Normal 1.4-6.5 [facility] Comment on above: Performed By: #### C BC #### [facility] [address] [address] [address] Ramsey Sanchez Neutrophils/100 WBC (Bld) 71.3 % Normal 43.0-75.0 [facility] Comment on above: Performed By: #### C BC #### [facility] [address] [place] [address] Dr. Ramsey Sanchez Platelet mean volume (Bld) [Entitic vol] 11.0 fL Normal 9.5-13.5 [facility] Comment on above: Performed By: #### C BC #### [facility] [address] [address] [address] Ramsey Sanchez PLT 203 103/ul Normal 150-450 [facility] Comment on above: Performed By: #### C BC #### [facility] [address] [address] [address] Ramsey Sanchez RBC 4.83 106/ul Normal 4.70-6.10 [facility] Comment on above: Performed By: #### C BC #### [facility] [address] [place] [address] Dr. Ramsey Sanchez WBC 8.9 103/ul Normal 4.0-11.0 [facility] Comment on above: Performed By: #### C BC #### [facility] [address] [place] [address] Dr. Ramsey Sanchez LACTATE/LACTIC ACIDon 2022 Lactate [Moles/Vol] 1.0 mmol/L Normal 0.4-2.0 [facility] Comment on above: Performed By: #### C BC #### [facility] [address] [place] [address] Dr. Ramsey Sanchez PROF 14(COMP METB)on 023 Albumin [Mass/Vol] 3.7 g/dL Normal 3.4-5.0 [facility] Comment on above: Performed By: #### C XSTOOL #### [facility] [address] [place] [address] Dr. Ramsey Sanchez Albumin/Globulin [Mass ratio] 0.9 {ratio} Normal [facility] Comment on above: Performed By: #### C XSTOOL #### [facility] [address] [place] [address] Dr. Ramsey Sanchez ALP [Catalytic activity/Vol] 68 U/L Normal 46-116 [facility] Comment on above: Performed By: #### C XSTOOL #### [facility] [address] [place] [address] Dr. Ramsey Sanchez ALT [Catalytic activity/Vol] 23 U/L Normal 16-63 [facility] Comment on above: Performed By: #### C XSTOOL #### [facility] [address] [place] [address] Dr. Ramsey Sanchez Anion gap [Moles/Vol] 12.6 mmol/L Normal [facility] Comment on above: Performed By: #### C XSTOOL #### [facility] [address] [place] [address] Dr. Ramsey Sanchez AST [Catalytic activity/Vol] 21 U/L Normal 15-37 [facility] Comment on above: Performed By: #### C XSTOOL #### [facility] [address] [address] [address] Ramsey Sanchez Bilirubin [Mass/Vol] 0.3 mg/dL Normal 0.2-1.0 [facility] Comment on above: Performed By: #### C XSTOOL #### [facility] [address] [address] [address] Ramsey Sanchez Calcium [Mass/Vol] 8.8 mg/dL Normal 8.5-10.1 [facility] Comment on above: Performed By: #### C XSTOOL #### [facility] [address] [address] [address] Ramsey Sanchez Chloride [Moles/Vol] 104 mmol/L Normal 98-107 [facility] Comment on above: Performed By: #### C XSTOOL #### [facility] [address] [place] [address] Dr. Ramsey Sanchez CO2 [Moles/Vol] 26.7 mmol/L Normal 21.0-32.0 [facility] Comment on above: Performed By: #### C XSTOOL #### [facility] [address] [address] [address] Ramsey Sanchez Creatinine [Mass/Vol] 1.27 mg/dL Normal 0.70-1.30 [facility] Comment on above: Performed By: #### C XSTOOL #### [facility] [address] [place] [address] Dr. Ramsey Sanchez EGFR-AF PORTUGUESE >60 Normal >=60 [facility] Comment on above: Performed By: #### C XSTOOL #### [facility] [address] [place] [address] Dr. Ramsey Sanchez EGFR-NON AF PORTUGUESE 54 mL/min/1.73m2 Critically low >=60 [facility] Comment on above: Performed By: #### C XSTOOL #### [facility] [address] [place] [address] Dr. Ramsey Sanchez Globulin (S) [Mass/Vol] 3.9 g/dL Normal [facility] Comment on above: Performed By: #### C XSTOOL #### [facility] [address] [address] [address] Ramsey Sanchez Glucose [Mass/Vol] 114 mg/dL Critically high 74-106 [facility] Comment on above: Performed By: #### C XSTOOL #### [facility] [address] [address] [address] Ramsey Sanchez Potassium [Moles/Vol] 4.3 mmol/L Normal 3.5-5.1 [facility] Comment on above: Performed By: #### C XSTOOL #### [facility] [address] [address] [address] Ramsey Sanchez Protein [Mass/Vol] 7.6 g/dL Normal 6.4-8.2 [facility] Comment on above: Performed By: #### C XSTOOL #### [facility] [address] [address] [address] Ramsey Sanchez Sodium [Moles/Vol] 139 mmol/L Normal 136-145 [facility] Comment on above: Performed By: #### C XSTOOL #### [facility] [address] [address] [address] Ramsey Sanchez Urea nitrogen [Mass/Vol] 19.0 mg/dL Critically high 7.0-18.0 [facility] Comment on above: Performed By: #### C XSTOOL #### [facility] [address] [address] [address] Ramsey Sanchez Urea nitrogen/Creatinin e [Mass ratio] 15.0 mg/mg Normal [facility] Comment on above: Performed By: #### C XSTOOL #### [facility] [address] [address] [address] Ramsey Sanchez XR CHEST 1 Von 09-25-2022 XR CHEST 1 V XR CHEST 1 V 09/25/19 23 10:15 PM EDT CLINICAL INDICATION: Chest pain COMPARISON: 04/26/2020 TECHNIQUE: Portable semiupright AP view of the chest. FINDINGS: Left subclavian approach AICD Cardiac silhouette appears mildly enlarged. No florid pulmonary interstitial edema. Patchy peripheral left basilar airspace disease. No pneumothorax or pleural effusion. No displaced rib fractures. Osseous structures demonstrate degenerative changes. Soft tissues are grossly normal. IMPRESSION: Patchy peripheral left basilar airspace disease which may represent atelectasis or pneumonia. Electronically authenticated by: TRACY HIGHTOWER Date: 2022-09-24 23:29 Normal [facility] Discharge Instructionson Discharge Instructions [id number]#[id number] D:127 Normal [facility] XR Chest 2 Viewson 3 XR Chest 2 Views Exam Date/Time: 09/22/2022 18:00 EDT Reason for Exam: Cough Report IMPRESSION: INCREASED DENSITIES LEFT LUNG BASE, THAT MAY BE DUE TO ATELECTASIS, FIBROSIS, OR STREAKY INFILTRATION. CLINICAL HISTORY: Cough. COMMENT: There is a cardiac electrical device on the left, with intracardiac electrodes. The heart is borderline to mildly enlarged, with left ventricular prominence. There are coronary artery calcifications and/or stents. There is calcification at the aortic arch. There is mild tortuosity of the thoracic aorta. The mediastinum is otherwise unremarkable. There are streaky densities at the left lung base, that may be due to atelectasis, fibrosis, or streaky infiltration. No consolidated airspace opacification nor pleural effusion is evident. There is mild eventration of the right diaphragm. There is metallic surgical hardware associated with the lower cervical spine. Ordering Provider: Braden Stafford FINAL REPORT Dictated: 09/23/2022 10:20 am Fidel Reid M.D. Signed (Electronic Signature): 09/23/2022 10:20 am Signed by: Fidel Reid M.D. Transcribed by: SHAUNNA Technologist: ARABELLA Technical Comments Radiation Dose: Ka,r in mGy = na DAP = na Normal [facility] COVID + FLU Quick Testingon 09-22-2022 SARS-CoV-2 (COVID-19) RNA MICHELLE+probe Ql (Unsp spec) Positive Network Game Interaction Other COVID + FLU Quick Testing Negative Network Game Interaction Other Consent for Treatmenton 05 Consent for Treatment [id number]#1.00C D:127 Normal [facility] ED Clinical Summaryon 2022 ED Clinical Summary [address] [address] ED Clinical Summary Person Information Name: JEREMIE BENNETT [facility] Age: 81 Years : 1940 Sex: Male Language: Romanian PCP: Sabino Cooper MD Marital Status: Visit Id: Visit Reason: Fever; Respiratory problem; Body aches; Cough; COVID+ Speciality: Acuity: 4 Enc Type: Emergency Med Service: Emergency Arrival: 09/22/2022 16:21:40 Discharge: 09/22/2022 18:15:02 LOS: 000 01:54 Checkin: 09/22/2022 16:21:40 Checkout: 09/22/2022 18:15:02 Dispo Type: Home (Routine DC) EVENTS: Event Name Event Status Request Date/Time Start Date/Time Complete Date/Time Arrive Complete 09/22/2022 16:21:40 09/22/2022 16:21:40 09/22/2022 16:21:40 Document Home Meds Request 09/22/2022 16:21:40 Triage Complete 09/22/2022 16:21:40 09/22/2022 16:31:27 09/22/2022 16:31:27 Bed Assign Complete 09/22/2022 16:31:34 09/22/2022 16:31:34 09/22/2022 16:31:34 Dr Exam Complete 09/22/2022 16:31:34 09/22/2022 16:38:27 09/22/2022 16:38:27 RN Exam Complete 09/22/2022 16:31:34 09/22/2022 16:43:34 09/22/2022 16:43:34 Registration Complete 09/22/2022 16:38:27 09/22/2022 17:00:10 09/22/2022 17:00:10 Dr Exam Complete 09/22/2022 16:40:22 09/22/2022 16:40:22 09/22/2022 16:40:22 X-Ray Complete 09/22/2022 16:56:05 09/22/2022 17:49:03 09/22/2022 18:00:53 Reg Complete Request 09/22/2022 17:00:10 Meds Admin Complete 09/22/2022 17:44:51 09/22/2022 17:48:50 Wet Read Request 09/22/2022 18:00:53 Discharge Complete 09/22/2022 18:12:13 09/22/2022 18:15:08 09/22/2022 18:15:08 Transfer Complete 09/22/2022 18:15:08 09/22/2022 18:15:08 09/22/2022 18:15:08 ADDRESS: [address] [place] [phone] PHYS DOC NOTES: MEDICAL INFORMATION: Prescriptions Given: Medications to Continue with No Changes Other Medications amlodipine (amLODIPine 5 mg Tab) 1 Tablets By Mouth every day. aspirin (Aspir 81) 81 Milligram By Mouth every day. cholestyramine (cholestyramine 4 g/5 g Oral Pwdr) 1 Packets By Mouth 3 times a day. Refills: 0. clopidogrel (Plavix 75 mg Tab) 1 Tablets By Mouth every day. dorzolamide ophthalmic (dorzolamide ophthalmic 2% solution) 1 Drops Ophthalmic 2 times a day. each eye. fluticasone (fluticasone propionate) 50 Microgram Inhalation 2 times a day. fluticasone nasal (Flonase 0.05 mg/inh [place]) 1 Sprays Nasal Inhalation 2 times a day. each nostril. Refills: 0. furosemide (furosemide 20 mg Tab) 1 Tablets By Mouth every day. gabapentin (gabapentin 600 mg Tab) 600 Milligram By Mouth 3 times a day. Refills: 0. irbesartan (irbesartan 300 mg Tab) 1 Tablets By Mouth every day. isosorbide mononitrate 30 Milligram By Mouth once a day (in the morning). latanoprost ophthalmic once a day (in the evening). loperamide (loperamide 2 mg Tab) 1 Tablets By Mouth every 4 hours. metformin (metformin 500 mg ER Tab) By Mouth 2 times a day. Misc Prescription (Misc DME Prescription) one touch ultra test strips test sugars once a day. Misc Prescription (Misc DME Prescription) one touch ultra lancets Use to test sugars once a day. multivitamin with minerals (Multivitamin, Therapeutic w/ Minerals) By Mouth every day. omeprazole (omeprazole 40 mg Cap-DR) 40 Milligram By Mouth every day. Refills: 0. rosuvastatin (Crestor 10 mg Tab) 1 Tablets By Mouth every day. Refills: 0. sotalol (sotalol 80 mg Tab) 0.5 tab By Mouth 2 times a day. tizanidine (tiZANidine 4 mg Tab) 1 Tablets By Mouth every day. PATIENT EDUCATION INFORMATION: Instructions: [place]-19 Follow up: With: Address: When: [address] [phone] Business (2) In 3 days 09/25/2022 DIAGNOSIS: COVID-19 Normal [facility] ED Patient Summaryon 023 ED Patient Summary (Inserted Image. Lisset ble to display) [address] [address] Patient Discharge Instructions Person Information Name: JEREMIE BENNETT Annabelle Age: 81 Years Arrival Date: 09/22/2022 16:21:40 Discharge Diagnosis: COVID-19 Primary Care Physician: Sabino Cooper MD Provider Information Primary Provider: Gordy Sánchez DO Advanced Fire Boss:Braden Stafford PA-C The exam and treatment you received in the Emergency Department were for an urgent problem and are not intended as complete care. It is important that you follow up with a doctor, nurse practitioner, or physician?s kennel assistant for ongoing care. If your symptoms become worse or you do not improve as expected and you are unable to reach your usual health care provider, you should return to the Emergency Department. We are available 24 hours a day. JEREMIE BENNETT has been given the following list of patient education materials, prescriptions and follow-up instructions: Follow-up Instructions: With: Address: When: [place] [address] Business (2) In 3 days 09/25/2022 In the event that this physician does not participate in your insurance network, please consult with your insurance company to find a nearby participating provider. Patient Education Materials: COVID-19 A MESSAGE TO ALL PATIENTS REGARDING OPIOIDS PRESCRIPTION OPIOIDS: WHAT YOU NEED TO KNOW Prescription opioids can be used to help relieve kmmiuata-oc-vtmtkv pain and are often prescribed following a surgery or injury, or for certain health conditions. These medications can be an important part of the treatment but also come with serious risks. It is important to work with your healthcare provider to make sure you are getting the safest, most effective care. WHAT ARE THE RISKS AND SIDE EFFECTS OF OPIOID USE? Prescription opioids carry serious risks of addiction and overdose, especially with prolonged use. An opioid overdose, often marked by slowed breathing, can cause sudden . The use of prescription opioids can have a number of side effects as well, even when taken as directed: ? Tolerance?meaning you might need to take more of the medication for the same pain relief ? Physical dependence?meaning you have symptoms of withdrawal when a medication is stopped ? Increased sensitivity to pain ? Constipation ? Nausea, vomiting, and dry mouth ? Sleepiness and dizziness ? Confusion ? Depression ? Low levels of testosterone that can result in lower sex drive, energy, and strength ? Itching and sweating RISKS ARE GREATER WITH: ? History of drug misuse, substance use disorder, or overdose ? Mental health conditions (such as depression or anxiety) ? Sleep apnea ? Older age (65 years and older) ? Avoid alcohol while taking prescription opioids. Also, unless specifically advised by your health care provider, medications to avoid include: ? Benzodiazepines (such as Xanax or Valium) ? Muscle relaxants (such as Soma or Flexeril) ? Hypnotics (such as Ambien or Lunesta) ? Other prescription opioids KNOW YOUR OPTIONS Talk to your health care provider about ways to manage your pain that don?t involve prescription opioids. Some of these options may actually work better and have fewer risks and side effects. Options may include: ? Pain relievers such as acetaminophen, ibuprofen, and naproxen ? Some medication that are also used for depression or seizures ? Physical therapy and exercise ? Cognitive behavioral therapy, a psychological, goal-directed approach, in which patients learn how to modify physical, behavioral, and emotional triggers of pain and stress. IF YOU ARE PRESCRIBED OPIOIDS FOR PAIN: ? Never take opioids in greater amounts or more often than prescribed. ? Follow up with your primary health care provider. o Work together to create a plan on how to manage your pain. o Talk about ways to help manage your pain that don?t involve prescription opioids. o Talk about any and all concerns and side effects. ? Help prevent misuse and abuse o Never sell or share prescription opioids. o Never use another person?s prescription opioids. ? Store prescription opioids in a secure place and out of reach of others (this may include visitors, children, friends, and family). ? Safely dispose of unused prescription opioids: Find your community drug take-back program or your pharmacy mail-back program, or flush them down the toilet, following guidance from the Food and Drug Administration (www.fda.gov/Drugs/Reso urcesForYou). ? Visit www.cdc.gov/drugoverdos e to learn about the risks of opioids abuse and overdose. ? If you believe you may be struggling with addiction, tell your health laboratory animal care veterinarian and ask for guidance or call [facility]S National Helpline at 4-631-718-[employer]Linx. v Source: [place] Department of Health and Human Serv (more content not included)... Normal [facility] Transfer Inon 09-16-2022 Transfer In [id number] D:127 [facility] [facility] 09-14-2022 Forms [id number] D:127 [facility] Ambulatory Visit Summaryon 0 08-24-2022 Ambulatory Visit Summary JEREMIE BENNETT :1940 Visit Date:08/24/2022 Ambulatory Visit Instructions Your Diagnosis Hypercholesterolemia Primary hypertension Type 2 diabetes mellitus without complication, without long-term current use of insulin Apnea, not elsewhere classified GERD with apnea Diabetic autonomic neuropathy associated with type 2 diabetes mellitus BMI 29.0-29.9,adult Over weight Your Care Team Attending Physician - Sabino Cooper MD Primary Care Physician - Sabino Cooper MD This Is Your Medications List Misc Prescription (Misc DME Prescription) Misc Prescription (Misc DME Prescription) amlodipine (amLODIPine 5 mg Tab) aspirin (Aspir 81) cephalexin (Keflex 250 mg Cap) clopidogrel (Plavix 75 mg Tab) dorzolamide ophthalmic (dorzolamide ophthalmic 2% solution) fluticasone (fluticasone propionate) fluticasone nasal (fluticasone 0.05 mg/inh Nasal [place]) furosemide (furosemide 20 mg Tab) gabapentin (gabapentin 600 mg Tab) irbesartan (irbesartan 300 mg Tab) isosorbide mononitrate latanoprost ophthalmic loperamide (loperamide 2 mg Tab) metformin (metformin 500 mg ER Tab) multivitamin with minerals (Multivitamin, Therapeutic w/ Minerals) omeprazole pantoprazole (Pantoprazole [address] Tab) rosuvastatin (Crestor 10 mg Tab) sotalol (sotalol 80 mg Tab) sucralfate (sucralfate 1 g Tab) tizanidine (tiZANidine 4 mg Tab) trazodone (traZODONE 50 mg Tab) Procedures Performed Esophagogastroduodenosc opy (05/20/2020), Angioplasty, Cardiac pacemaker procedure, Cataract, Cholecystectomy, Colonoscopy, Hernia repair, Prostate excision, Tonsillectomy, Vasectomy. Discharge Vitals Heart Rate (Peripheral) 66 Respiratory Rate 20 Blood Pressure 128/74 Height 167.64 cm Height 66 in Weight 83.4 kg Weight 183.48 lb BMI 29.68 What to do next Scheduled Follow-Up Appointments Wednesday 9:00 AM EDT With: Hermes CASON, Sabino Rosa Where: [facility] Family Medicine Office/Clini c Noteon 08-24-2022 Family Medicine Office/Clinic Note Chief Complaint establish care, refills HPI Staff establish care Establish Care: History: DM, GERD, Hypercholesterolemia, heart Last provider: Dr London Any recent labs: none Health Maintenance UTD: Colonoscopy: 6-7 years ago PSA: Dr galicia follows no longer has a prostate Covid: UTD Patient is here for follow up on Diabetes. How often are you checking your blood sugars? 1 times per day What are your average readings? 124 Do you have any of the following symptoms? Foot Exam: done by Dr Hardy Eye Exam: Dr Luo 2 weeks ago Microalbumin: unknown Last A1C: Feb 2022 5.9 Last Chronic Labs: Feb 2022 Patient is here for follow up on hypercholesterolemia: Do you have side effects from the medication? no Refill needed?: yes Yearly Lipid labs: feb 2022 Acute: Current issues/complaints: Needs refills of metformin, crestor, gabapentin and fluticasone nasal spray all to [facility] one touch ultra tests strips and ultra soft lancets [facility] History of Present Illness Jeremie Bennett is an 81-year-old male who presents today for a follow-up evaluation of diabetes. The patient's diabetes is well-controlled. His most recent A1c was 5.9. He is currently taking metformin extended release 500 mg twice daily. His urinary urgency is unresolved. He was seen by Dr. Davison, who prescribed docusate, Carafate, and pantoprazole. He states that this did not improve his symptoms. He is currently taking omeprazole for acid reflux. He has a history of a cholecystectomy. Jeremie continues to experience back pain. He is currently taking tizanidine, which is somewhat helpful. He follows with Dr. Corado. His right hand is usually numb and cold . He also follows Dr. Arellano. [place]. He believes that he strained a muscle. He was considering stem cell therapy. Review of Systems PHQ Score Initial Depression Screen Score: 0 Physical Exam Vitals & Measurements HR: 66(Peripheral) RR: 20 BP: 128/74 SpO2: 93% HT: 66 in HT: 167.64 cm WT: 83.4 kg WT: 183.48 lb BMI: 29.68 General: alert, no acute distress ENMT: oral mucosa moist, no pharyngeal erythema or exudate Cardiovascular: regular rate and rhythm, normal peripheral perfusion Respiratory: Lungs CTA, respirations non labored Extremities: no deformity, no trauma Neurological: oriented x 4, LOC appropriate for age, CN II-XII intact, motor strength equal & normal bilaterally, speech normal Assessment/Plan Chronic diarrhea. Will try cholestyramine 2/2 removal of the gallbladder. 1. Hypercholesterolemia (E78.00: Pure hypercholesterolemia, unspecified) Patient is at goal. Patient is on Crestor at this time. We will refill medication today. 2. Primary hypertension (I10: Essential (primary) hypertension) Patient is at goal today. We will continue to monitor. We will refill medications as needed. 3. Type 2 diabetes mellitus without complication, without long-term current use of insulin (E11.9: Type 2 diabetes mellitus without complications) At this time, we will continue the patient on metformin. We will reduce it to one metformin once a day as the patient had a last A1c of 5.9. 4. Apnea, not elsewhere classified (R06.81: Apnea, not elsewhere classified) Continue on the omeprazole. 5. GERD with apnea (K21.9: Gastro-esophageal reflux disease without esophagitis) Continue on the omeprazole. 6. Diabetic autonomic neuropathy associated with type 2 diabetes mellitus (E11.43: Type 2 diabetes mellitus with diabetic autonomic (poly)neuropathy) We will continue on the gabapentin. Tingling of the right arm most likely to cervical concerns. Patient is seeing the neurosurgeon. 7. BMI 29.0-29.9,adult (Z68.29: Body mass index [BMI] 29.0-29.9, adult) BMI education given. 8. Over weight (E66.3: Overweight) As above. 9. Numbness of right hand (R20.0: Anesthesia of skin) Seeing Neurosurgery We will see the patient back in 3 months. ATTESTATION: Documentation services were performed after patient or guardian consented to allow Willy Ruby Montano to record this visit. OSVALDO marketing content specialist and provider reviewed before signing. OSVALDO: Leandra Zaidi. Follow-up No qualifying data available Problem List/Past Medical History Ongoing BMI 30.0-30.9,adult Diabetic autonomic neuropathy associated with type 2 diabetes mellitus GERD with apnea Glaucoma Hypercholesterolemia Hypertension Leaking of urine Lower abdominal pain Mixed incontinence Numbness of right hand Osteoarthritis Pacemaker Personal history of prostate cancer Prostatitis PUD (peptic ulcer disease) Right flank pain, chronic Right-sided chest wall pain Sleep apnea Type 2 diabetes mellitus without complication, without long-term current use of insulin Upper abdominal pain Urinary incontinence without sensory awareness Vitamin D deficiency Historical No qualifying da (more content not included)... Normal [facility] Comment on above: Result Comment: Elec tronically Signed By: Sabino Cooper MD\.br\Date and Time Signed: 08/24/22 14:42 EDT\.br\Electronically Co-Signed By: Leandra Zaidi\Date and Time Co-Signed: 08/24/22 11:11 EDT Medication Consenton 023 Medication Consent [id number]#1.00C D:127 Normal [facility] MR ankle RT wo conon 023 MR ankle RT wo con [facility] [place] [address] [place] [address] MRI Report Signed Patient: Jeremie Bennett MR#: [id number] 812 : 1940 Acct:[id number] Age/Sex: 81 / M ADM Date: 08/12/22 Loc: Room: Type: [facility] Attending Dr: Alanna Hardy DPM, MS Copies to: Alanna Hardy DPM, Ordering Provider: Alanna Hardy DPM, MS Date of Service: 08/12/22 MR/MR ankle RT wo con: M7.22, [id number] MR ankle RT wo con 08/12/2022 7:28 AM SIGNS AND SYMPTOMS: Lateral right ankle pain PROTOCOL: Multiplanar multisequence MR images of the right ankle were obtained without IV contrast. COMPARISON: Radiographs from the same date FINDINGS: Alignment: Normal. Fluid: Tibiotalar: No joint effusion. Subtalar: No joint effusion. Medial: Medial malleolus: Intact. Tendons: Posterior tibial tendon: Intact. Flexor digitorum longus: Intact. Flexor hallucis longus: Intact. Ligaments: Deltoid ligament complex - superficial: Intact. Deltoid ligament complex - deep: Intact. Spring (plantar calcaneo-navicular) ligament: Intact. Lateral: Lateral malleolus: Intact. Retromalleolar groove: Normal. Tendons: Peroneus longus: Intact. Peroneus brevis: Intact. Peroneal retinaculum: Intact. Ligaments: Anterior inferior tibiofibular (syndesmosis): Intact. Posterior inferior tibiofibular (syndesmosis): Intact. Anterior talofibular ligament: Not well visualized and most likely previously disrupted.. Calcaneofibular ligament: There is increased signal on fluid sensitive sequences suggesting prior sprain. Posterior talofibular ligament: Intact. Posterior: Posterior talus: Normal. Intermalleolar ligament: Intact. Achilles tendon: Intact. Plantar fascia: Intact. Anterior: Tendons: Anterior tibial tendon: Intact. Extensor hallucis longus: Intact. Extensor digitorum longus: Intact. Tibiotalar joint: Intact. Subtalar joint: Intact. Bones (other than subarticular marrow): There is plantar surface calcaneal spurring. There is mild subcortical cystic change in the anterior aspect of the calcaneus with mild degenerative changes at the calcaneocuboid joint. Muscles: Normal Tarsal tunnel: Normal. Sinus tarsi: Normal. MR/MR ankle RT wo con IMPRESSION: Findings suggest previous sprain/tear of the anterior talofibular ligament and calcaneofibular ligament. Mild degenerative changes are noted at the calcaneocuboid joint. The right ankle is otherwise grossly intact. Impression dictated by: Rafi Gordon M.D.08/12/2022 1:15 PM Dictation Location: [place] [address] Transcribed By: [facility] 08/12/22 1315 Dictated By: Rafi Gordon II, MD 08/12/22 1302 Signed By: 08/12/22 1315 [facility] MR cervical spine wo conon 0 08-12-2022 MR cervical spine wo con [facility] [place] [address] [place] [address] MRI Report Signed Patient: Jeremie Bennett MR#: [id number] 812 : 1940 Acct:[id number] Age/Sex: 81 / M ADM Date: 08/12/22 Loc: Room: Type: [facility] Attending Dr: Missy Westfall PA-C Copies to: Missy Westfall PA-C Ordering Provider: Missy Westfall PA-C Date of Service: 08/12/22 MR/MR cervical spine wo con: M54.12, M54.2 MR cervical spine wo con 08/12/2022 7:31 AM SIGNS AND SYMPTOMS: Posterior neck pain radiating down right arm. Numbness in fingers of right hand. PROTOCOL: Multiplanar multisequence MR images of the cervical spine were obtained without IV contrast. COMPARISON: Radiographs of the cervical spine from the same date FINDINGS: The bones of the cervical spine are in anatomic alignment. There is anterior fusion hardware from C3 through C5. There is bridging anterior osteophyte formation at C2-C3. There is moderate disc height loss at C6-C7. The intervertebral discs are otherwise preserved. There is preservation of vertebral body heights. The marrow signal is within normal limits. The cord is normal in signal. No epidural or paraspinous fluid collection is appreciated. The visualized paraspinous soft tissues are within normal limits. The prevertebral soft tissues are within normal limits. At C2-C3: There is a normal disc, central canal, and neural foramen. At C3-C4: There is endplate osteophyte formation with uncovertebral joint spurring and facet hypertrophy. There is mild right and moderate left neural foraminal narrowing with mild spinal canal narrowing. At C4-C5: There is endplate osteophyte formation with facet and uncovertebral joint degenerative change contributing to moderate bilateral neural foraminal narrowing left greater than right. There is mild spinal canal narrowing. At C5-C6: There is a mild broad-based disc bulge with facet and uncovertebral joint degenerative change contributing to moderate to severe right and mild left neural foraminal narrowing with mild spinal canal narrowing. At C6-C7: There is a broad-based disc bulge with facet and uncovertebral joint degenerative change contributing to moderate left and mild right neural foraminal narrowing with mild spinal canal narrowing. At C7-T1: There is a normal disc, central canal, and neural foramen. MR/MR cervical spine wo con IMPRESSION: No cord compression or cord signal abnormality. There is evidence of prior intervertebral fusion from C3 through C5. Disc, facet, and uncovertebral joint degenerative changes are noted throughout cervical spine contributing to varying degrees of spinal canal and neural foraminal narrowing as detailed above. Impression dictated by: Rafi Gordon M.D.08/12/2022 1:02 PM Dictation Location: [place] [address] Transcribed By: [facility] 08/12/22 1302 Dictated By: Rafi Gordon II, MD 08/12/22 1253 Signed By: 08/12/22 1302 Normal [facility] XR pre/post mri xrayon 08-12 XR pre/post mri xray [place] [address] XRay Report Signed Patient: Jeremie Bennett MR#: [id number] 812 : 1940 Acct:[id number] Age/Sex: 81 / M ADM Date: 08/12/22 Loc: MR Room: Type: [facility] Attending Dr: Alanna Hardy DPM, MS Copies to: Alanna Hardy DPM, MS Ordering Provider: Alanna Hardy DPM, MS Date of Service: 08/12/22 XR/XR pre/post mri xray: M7.22, [id number] XR pre/post mri xray 08/12/2022 7:28 AM SIGNS AND SYMPTOMS: Posterior neck pain radiating into right arm. Lateral right ankle pain. PROTOCOL: Lateral and bilateral oblique radiographs of the cervical spine. Frontal and lateral radiograph of the right ankle. COMPARISON: None. FINDINGS: Cervical spine: There is anterior fusion with intervertebral fusion body placement from C3 through C5. There is moderate disc height loss at C6-C7. There is bridging anterior osteophyte formation at C2-C3, C5-C6, and C6-C7. There is bony neural foraminal narrowing bilaterally secondary to facet and uncovertebral joint degenerative change. No fracture or subluxation. Right ankle: The tibiotalar junction is intact. There is no fracture or dislocation. There is mild enthesophyte formation at the medial malleolus. There is plantar surface calcaneal spurring. XR/XR pre/post mri xray IMPRESSION: Cervical spine: There is anterior fusion with intervertebral fusion body placement from C3 through C5. Degenerative changes are noted throughout greatest at C6-C7. Right ankle: No acute bony injury. Enthesophyte formation is noted at the medial malleolus with plantar surface calcaneal spurring. Impression dictated by: Rafi Gordon M.D.08/12/2022 1:17 PM Dictation Location: [place] [address] Transcribed By: [facility] 08/12/22 1317 Dictated By: Rafi Gordon II, MD 08/12/22 1315 Signed By: 08/12/22 1317 [facility] POINT OF CARE GLUCOSEon 03- Glucose [Mass/Vol] 146 mg/dL Critically high 74-106 T [facility] Comment on above: Performed By: #### C XSTOOL #### [facility] [address] [place] [address] Dr. Ramsey Sanchez Coding Summary.on 05-28-2022 Coding Summary. CD:[id number] Gh0 bWw+PGhlYWQ+OV5FULTsR36 nyZAtzO7EW1aRFN5ZOCLTNV LQQK3UKT4ulGJ4ZHidX8Vqk iAv CyxgkEMhBF17YKr5NFZ4tKa lFJcxrW4sgKLrB2w4JoGfZE 17kW75RGgfXDBmZoL9DuHwn jsgbWFy H1xfXvSqqYRhSqo+PHRhYmx lIHdpZHRoPScxMDAlJyBzdH dsHG1dBy9eRUAwSXAgvHomc HNlOiBj j5rbUZRmWEqpLX0xjHqdS9S luDD9UAToa2b1We20vGY+PH MrNAX5iZocCYyki013KxRth 4okOCQ1 eEQfKLvlTHO7N49be2Q6GJM tRJMqNNA2tCP9aJ7vqBhsho lmK2XwbZRbZxD8MCF8oZIre O0sqBvk xarjxX2xEjl+V30EVU4JEBY OJY1AOda3X8JoIimmaCB+PC 19EZDqKM30eWEavRSet4nms Zg5HrRc TRFrXPP5uPwsOAouk5MbVGF mY65krHMiq5P5RFRsxMxvgU BvUnMjyLR3mW0nAAqudmtjh 2hvdzsn Emndt6hpht31bK05D39gVFw uWYAkIPI9HXHeJDCmfUfuxj 1mtI7hMj2+HQgkc7gmx2kah Iq9CoCh JRPvccPgxNovWBX1m9FiUk8 2J5IplSzjo4ThBqi4cs27kJ Xzi5V0vAF5SMelRZWqjB1oN WxlZnQ6 DYMbEvPneE42hCRnTFyoRt1 wrBkcqPhxZS7tVZTdobcbDC PhsP2gEXDksXWtoLjpPT5iQ TBpbjtm y639GrBfTJV8XRFcsUXlG0X pcJ3qEnKlIHYvOHFhY5FmvV CiSQyhD421TGkjUyK3LYRll pFfW9Uq CYWwtOvuHgP3o3D4Zt7Vo5M pzbbyOIR1KRaxXKDtKzDxKu HmMhQ6P6LeStu2XSGivOdvZ J4fR4Md SPSozpavnttsdHL3JGEeFJV zeI96cPViKBwjMg1dq6U8s5 89VDIoCDKktD19Du0sbOrqT TBwdCBU pC9gneyqt1jjewooWdXcYMS kFQv4ZLv8VTBjdPknNbQlBQ V4IdC7OXT8iTGogP6qjQgns dgeaJ5r Oyc+E28waA6lEFC8HTS4yer sKDFupcVxWL46SV45D6OdQf wvdGFibGU+PGRpdiBzdHlsZ L9dOgXn y2bty1JzPGvkH3KdXDYhNIs fPmo6HOGaADE9sYQ0kS6wST KdXAprg3U7eYO8H5YawcEtr y1fm7fn INSlGUjaR97ieFAhj2R8KON whUY8RJRvyIruLjDjpH38Op c+YECxgWuyc8ZxCfqjp8kxp 3dwzRu4 LrVkMCYwvfReaQacBXY8j8P hFu47H14mXHvvKWPyBZXuVL NePXUwhPczob3hkO1rHk6+P GNvbCB3 yXG9pP7lTCJjSyQ1KAwdI18 2ExCpzZZrCmmpo7mmn5dlxY u5LmNyJVJorfQfbZhzDOC8k 2PqAz32 V22zWYkoKHBzCZPaSELxVPJ yhHmnuu2jzO0zEi3+PC9jb2 mpne18aO69oNL+NUVkCDV1q WxlPSdw DUSbsN4xOZnxOuZ3SSOgJvY yyN69mLPuEHfsRa9pkIfxnU moGH7uGPWqeahyh831CtDpb 2xkIDEw lRKjAMsuEGS9G13oh6M9SHE iNXDmKGI7dJF8iI9siIjdcn ogbGVmdDsgdmVydGljYWwtY SneA939 IHRvcDsnPlBhdGllbnQgTmF jXDk0W2SqJar5SXWnqRoxCT 9vvKUtULvsQy7bnAmvgUbhE R8rAKPl tclda701XtXgw2cfJRKylXL tRXecDYE8E00kr6T4VREfSS UhVVN3zTX5aU3clSggbxjeo GVmdDsg zgJcsXgrUPovZKmlB471VDC xoGyfUxWowjQoNCBkhSW2WH 04ZH06mWJll8P1hDJ1R7NnY GRpbmct xhjbuQA8VPDkLVHzqG39Yd8 wfLsuGs7jGNRbZBM8BBIehH GxG7GuhY5eYmHxIKEjQPYyR 3RleHQt ODzgM215CXnrFjY2UBOggyE tP7BuBMUteWkfAvM0h9W9Bf 7CG5R3LC54NO99qBObf2U3x OA6G4Gi BDPlohinvrfvhAE4JXPmUQX qqR06Dv5hiIlaIf6cVYJvVL C1GZFkdKRuD8BczK1lGwClQ DAwMDAw A2XmaRLuLJijC092QJblXvH 7KFVvxcNiD3ZiMJVlfReeMa F2m2T3Az7UZJe2YQ25MH58y AMhi2B0 kBY0R1QbIBQtbsieuxbawGR 4GVXtFZZxkA86Ay7csSqaCv 5dORWzRTW3SRKcaACrC8Zwo C1iArBz VNPuZEBtN9QtbUHeKFjqX01 4YNbkJqW8FMBdoySxL1KuKN UpmUzeKsU2q7Y7Oo4EHXEqT B76VVT9 tOU5SP56KG18A6RzNeynoLV ibGU+PHRhYmxlIHdpZHRoPS yaGSFfFhOwhGnzMC9jAq9jE GVyLWNv mKfvwJNoZzOhe5neTNTmKOz jYX4axSqcM5BjnAP6XYJnm1 l7Xo58J53hA7KaaBU+PGNvb RN4nVI3 tV5cPeHxVbZ6AInvO480HzR blKXbMepad9and5xycOy2Av V5TQLodkEeaNlyEQQ2f6CzO i72Y42b IHdpZHRoPSIxNSUiIHZhbGl nxv2bqM5pTs5+GCQmpTK0aS Y2tC5kTsKbLiF2ROljD996C nRvcCIv Ggjtc5yqj9uamEw6ZjAdGDT kdwOonPbmNBP1x1ViCg27G6 UgpXmzm5DeYzu8sx91sEPzg 9W4fZM4 O2EyJJIgwttnxDWthKulKK9 wUBIrzfnsDZHmqC8cHCHbG9 x8PiCuMwT6GXdrH7SiipZ0D DEwcHQg GLvjONX6L06nm4A7BWYjPUB zXDF1jHD0uN2tqJhimbkweV VmdDsgdmVydGljYWwtYWxpZ 246IHRv aAcuRBSvcB0sFDSxcGBbjKd kLQ1lJHMuonvfAbISBRVVFF TJXZXGMFGRUPQ2F3PwLfy7L CBzdHls KI8orFGyCLxmNr4qvPoftKm bRI4pTUCrrcnuJXOrtV3zNE IixQDvxFrvOW1wJGFjyofss 250OiAx GTU5XPOanSGrE0FkeP3cMeK tMUPvMIDmX8YefMXeEKgdT7 83MNkhJbT5SHTvufWkV6RfF WFsaWdu YaA8f3Q0Ij3cLm4bUR2pIAH qOE49OP46vQPok6G5tXS3P4 DjMWPchxjljtwunGP8GHCwD DUwaW47 fUCqCKnoDq7ra7T7a928WZS eSRMubL15Km6haFpdOXOanW HGlW8slpbqf1zyrembLoPuJ DAwMDt0 WXx2JEUnfEmbXfNqQVX2LgD 0UCA0fJDbzN0ikXiudnjxsR 9wOyc+DFBpIWQgsnE6Y8JwF lw8DGKt rVhdJL1znNRrDOsxIz2fyDq dqIupGP8eDHQvvpovAZCyaO 9gGIWetCTxeGrbOJ5cKPUns bxbf371 XjTbZUF0ZWOzyGSwQ1KatB8 vDdLgJIYtIYHwA3GovNMqGF vwH156BUzcTrF9TAUrmdSaN 2FsLWFs jRfoIbI2k4W5Dc8NNBneNG9 8BQ38lPUce8G2dQQ4Y3CsUY HsjcqxwxfkaYN9YQXqEEDjb S60qSEw YTxaGk5yw0G3d544RTRnAKF mxP31Bj6moBidVUHmwDJDoX 5llzuac1yrjrsaTiTlKFAuY Am5GWp2 IFIdwQlpAeUqMWS3FyK8XRZ 3rOQwfE3kfSsteugkxD9qHd c+K9E5zKW2wTQhwTqecJG+P M65ra67 A0NmAcbuMgn9AZTxUKY1uYX 1mY2zCUJvCTfal8Q3qXY2R9 EfelZvvz5bd1weMGBjTIukF 29sbGFw w7B3PARrlRE5DSQnxCwmQbG kyX98Blb+TPDgsQlif7TrWn tjx3tbg7njcDn7OlRyEFPhp mFsaWdu NHD5l8SbAa93H14fDKgaVWF rJQSyIUQxMELqtVzovc6wqE 9wIi8+BSPhrMZ1sPA1hD2aX jAlIiB2 ATwsM278GnDvcNEiYaupt4k vh0mpdXe9NtMvOZEqlhKkcA ewLVS2y0KzCu72F1WcbKhmw 0CpKdd0 cc31eINsf3Z9hPA5H4RlOQY pfcktsOFklNmzGW5lNPUuus txCKJplV2uIFOzZ3b2YgIbM jR2GHhb C4VfaxL4SJQdxBBkAVAetIL AmI0auongi1dioifzMvSzLE VmEWq3YDv2KQHlkLxuZgThT VT8SsO9 SNA5gAUakQ2tfDmilttskW6 wOyc+WJm5f2vleIEjOO1xbH O8QW34MS87zBAwf5T2kOM1K 3BhZGRp qglfcssziXU5QEYtAASkpI3 4Yw0zaHrgRy7hKASwNWE1HM BwhJVxW8ZlaT3cTrSqTPVjG GZdC7Pc rBMeZUlcM166AYwrUoO0CMK wpeOoL3AtOEXnwXyiOsC8o7 H1Gg8DEK93IJ69QD75qLEbj 9A5nCN9 B2XmDHNkmlbcjyuqrXT8LPJ mHCTvfS89Ts6dbCqbKd3vJS GgMOZ9HFTwvNNzL8BlsT9hZ iAjMDAw BBUbN5IgbCIpILtfC127OEs qTsI1VZVhvgXmI2JjPQTfaA wvUvN0y9E2Fl7YJu05JJ04I Q55eHVi c0J8bXS5P3RoKFVwiimajkl sxRL1NLJjERHciW19Xx4caU tlMc8dJMLnQHV2HRVxsXTcC 2TxcS9e IsFiJNMoIYKhJ2LiuSCrBBb vJ357ERriOkN1JDNptwVbL2 OmPBDrfBodQxQ6d3G0Vz6EV Xllcjo8 K4VuJydljIC+KY73HVBkYM6 7eIUwxYDbf0czhTp3BjTfBJ KwRRE0mVudHEyki4JyKHUbM 29sbGFw c2U6 (more content not included)... Normal [facility] Consent for Procedure/Surger yon 05-27-2022 Consent for Procedure/Surgery [id number]#[id number] CD:127 Normal [facility] IntraOperative Documentson 0 05-27-2022 IntraOperative Documents [id number]#[id number] CD:127 Normal [facility] Consent for Treatmenton 05-17 Consent for Treatment [id number]#[id number] D:127 Normal [facility] Main OR Intraoperative Recor don 05-26-2022 Main OR Intraoperative Record IntraOp Document Type FTURO Summary Primary Physician: Dequan GALICIA MD Finalized Date/Time: 05/26/22 13:48:11 Pt. Name: JEREMIE BENNETT/Sex: 1940 Male Med Rec #: [id number] Physician: Dequan GALICIA MD Financial #: [id number] Pt. Type: O Room/Bed: / Admit/Disch: 05/26/22 12:22:54 - Institution: Case Times FTURO Entry 1 Patient Times In Room 05/26/22 13:38:00 Out Room 05/26/22 13:47:00 Procedure Times Start 05/26/22 13:40:00 Stop 05/26/22 13:43:00 Anesthesia Times Last Modified By: Susana Luna RN 05/26/22 13:48:07 Case Attendance FTURO Entry 1 Entry 2 Entry 3 Case Attendee Dequan GALICIA MD R Rivas [employer], Susana Luna RN, Susana Olivas Role Performed Surgeon - Primary Scrub - Primary Environmental Health Physician - Primary Time In 05/26/22 13:38:00 05/26/22 13:38:00 05/26/22 13:38:00 Time Out 05/26/22 13:47:00 05/26/22 13:47:00 05/26/22 13:47:00 Procedure CYSTOSCOPY LOCAL(.) CYSTOSCOPY LOCAL(.) CYSTOSCOPY LOCAL(.) Comments Last Modified By: Cheryl ESCALANTE, Susana Luna RN, Susana Obrien RN 05/26/22 13:48:08 05/26/22 13:48:08 05/26/22 13:48:08 Surgical Procedures FTURO Entry 1 Procedure Description Procedure CYSTOSCOPY LOCAL Modifiers . Surgeon Description CYSTOSCOPY LOCAL Primary Procedure Yes Primary Surgeon Dequan GALICIA MD Start 05/26/22 13:40:00 Stop 05/26/22 13:43:00 Anesthesia Type Local Surgical Service Urology Wound Class 2 - Clean-Contaminated Last Modified By: Susana Luna RN 05/26/22 13:43:37 General Case Data FTURO Pre-Care Text: Classifies surgical wound, implements aseptic technique, initiates traffic control Entry 1 Case Information OR URO 1 FT Case Level None Wound Class 2 - Clean-Contaminated Specialty Urology Preop Diagnosis HX PROSTATE CA, MIXED Postop Same As Preop Yes INCONTINENCE, UTI Postop Diagnosis HX PROSTATE CA, MIXED Outcomes Met? Yes INCONTINENCE, UTI Last Modified By: Susana Luna RN 05/26/22 13:41:48 Post-Care Text: The patient is free from signs and symptoms of infection EU IntraOp - FTURO Pre-Care Text: Implements protective measures prior to operative or invasive procedure, confirms identity before the operative or invasive procedure, verifies operative procedure, surgical site, and laterality Entry 1 EU Perioperative Protocols Procedure(s) CYSTOSCOPY LOCAL(.) Patient Identity Birthday, ID Band Verified (select at Check, Patient least 2): Participation Consents / H and P HandP, Surgery/Procedure Operative Site N/A Verified Consent Marking Verified Surgical Site Yes Laterality Verified Yes Verified Procedure Verified Yes Correct Patient Yes Position Verified Availability Equipment, Medication Time Out Dequan GALICIA MD, Verified (If Participants Susana Rivas CST Applicable) Cheryl Omalley RN, Kimberly Y Time Out Complete 05/26/22 13:39:00 Allergies Reviewed? Yes Allergies Reviewed Self/Patient With Body Position Supine Prep Area PENIS Prep Agents Betadine Solution Skin. Condition Dry, Warm, Unable to Description UNABLE TO VISUALIZE DUE Visualize TO PATIENT PARTIALLY CLOTHED Additional None Specimens Collected Vitals - EU Blood Pressure 105/63 Pulse 83 bpm Respirations 16 br/min SPO2 91 % EBL 0 IandO - EU Total Intake 0 mL Total Output 0 mL Outcomes Met? Yes Last Modified By: Susana Luna RN 05/26/22 13:43:31 Post-Care Text: The patient is free from signs and symptoms of injury caused by extraneous objects Sign Out FTURO Entry 1 Before Patient Leaves OR Nurse verbally Yes Nurse verbally Yes confirms with the confirms with the team the name of team that the procedure(s) instrument, sponge, recorded and needle counts are correct (or N/A) Nurse verbally n/a Nurse verbally Yes confirms with the confirms with the team how the team whether there specimen is labeled are any equipment (including patient problems to be name), if applicable addressed Sign Out Complete 05/26/22 13:43:00 Last Modified By: Susana Luna RN 05/26/22 13:43:36 Case Comments Finalized By: Susana Luna RN Document Signatures Signed By: Susana Luna RN 05/26/22 13:48 Normal [facility] Main OR Preoperative Recordo n 05-26-2022 Main OR Preoperative Record Holding Area Document Type FTURO Summary Primary Physician: Dequan GALICIA MD Finalized Date/Time: 05/26/22 13:40:17 Pt. Name: JEREMIE BENNETT/Sex: 1940 Male Med Rec #: [id number] Physician: Dequan GALICIA MD Financial #: [id number] Pt. Type: O Room/Bed: / Admit/Disch: 05/26/22 12:22:54 - Institution: Case Times Holding FTURO Pre-Care Text: Verifies consent for planned procedure, identifies individual values and wishes concerning care, includes family members in perioperative teaching Secures patient's records' belongings, and valuables, maintains patient's dignity and privacy, and maintains patient confidentiality Entry 1 In Holding 05/26/22 12:59:00 Outcomes Met? Yes Last Modified By: Pam Tran LPN 05/26/22 12:59:43 Post-Care Text: The patient participates in decisions affecting his or her perioperative plan of care The patient's right to privacy is maintained Surgery Checklist FTURO Entry 1 Patient Birthday, Patient Procedure Surgical Consent, With Identification: Participation Verification: Family, Other NPO after Midnight: No Date/Time: 05/26/22 12:59:00 Personal Items: Cataract Lens Implant, Personal Items na Dentures, Glasses, Comment: Jewelry, Pacemaker Limitations: na Complaints of Pain: No Pain Comment: na Skin Integrity Intact, [place], Warm, & Dry Vitals - EU Blood Pressure 105/63 Pulse 83 bpm Respirations 16 br/min SPO2 91 % RN Reviewed Yes Last Modified By: Susana Luna RN 05/26/22 13:40:16 General Comments: temp:36.4 Finalized By: Susana Luna RN Document Signatures Signed By: Pam Tran LPN 05/26/22 13:03 Susana Luna RN 05/26/22 13:40 Normal [facility] Operative Reporton 3 Operative Report Patient: ROXANNE BENNETT Age: 81 years Sex: Male : 1940 Associated Diagnoses: None Author: Dequan GALICIA MD Procedure Operative Information Details: Date/ Time: 05/26/2022 13:46:00. Pre-Op Dx: Mixed Urinary Incontinence - N39.46, Hx of Prostate CA - Z85.46, Incomplete Bladder Emptying - R39.14. Post-Op Dx: Same. Anesthesia Type: Local. Procedure: Local Cystoscopy. Complications: None. Risks/Benefits/Informed Consent: Surgical risks, benefits, details of the procedure have been explained to the patient, Full informed consent has been obtained. Intraoperative Information Prepped: Patient is brought back to the endoscopy suite, Patient is placed in supine position, Patient prepped in the usual fashion with Betadine solution, 2% Xylocaine Jelly is placed per Urethra, After waiting several minutes the Cystoscope is introduced. The Urethra is: Extrinsic compression from artificial urinary sphincter noted near the bulb of the urethra. The Prostatic Urethra is: Absent prostatic urethra. The Bladder is: Trabeculated (Severe (3), Open tics diffusely. Small areas of cystitis cystica lesions. No papillary TCC appearing lesions.). The ureteral orifices: Show efflux of clear urine. Devices Implanted: None. Removal: Cystoscope is removed, The patient tolerated it well. Postoperative Information Discharge: Patient is discharged home with antibiotic coverage, Follow up arranged. I am suspicious that he does not empty well and that is the cause of his recurrent infections and it is also contributing to his incontinence. We will plan to do urodynamics on him and possibly institute CIC.. Normal [facility] Comment on above: Result Comment: Elec tronically Signed By: GRAYSON CASON, Dequan Cline\.br\Date and Time Signed: 05/26/22 13:48 EST Ambulatory Visit Summaryon 1 06-28-2021 Ambulatory Visit Summary JEREMIE BENNETT :1940 Visit Date:04/27/2022 Ambulatory Visit Instructions Your Diagnosis Personal history of prostate cancer Mixed incontinence UTI (urinary tract infection) Tests Performed Urnls Dip Stick Auto w/o Microscopy POC 22487 Your Care Team Attending Physician - GRAYSON CASON, Dequan Cline Primary Care Physician - MG LONDON MD This Is Your Medications List Contact prescribing physician if questions or concerns amlodipine (amLODIPine 5 mg Tab) aspirin (Aspir 81) clopidogrel (Plavix 75 mg Tab) dorzolamide ophthalmic (dorzolamide ophthalmic 2% solution) fluticasone (fluticasone propionate) fluticasone nasal (fluticasone 0.05 mg/inh Nasal [place]) furosemide (furosemide 20 mg Tab) gabapentin (gabapentin 600 mg Tab) irbesartan (irbesartan 300 mg Tab) isosorbide mononitrate latanoprost ophthalmic loperamide (loperamide 2 mg Tab) metformin (metformin 500 mg ER Tab) multivitamin with minerals (Multivitamin, Therapeutic w/ Minerals) omeprazole pantoprazole (Pantoprazole [address] Tab) rosuvastatin (Crestor 10 mg Tab) sotalol (sotalol 80 mg Tab) sucralfate (sucralfate 1 g Tab) tizanidine (tiZANidine 4 mg Tab) trazodone (traZODONE 50 mg Tab) Procedures Performed Esophagogastroduodenosc opy (05/20/2020), Angioplasty, Cardiac pacemaker procedure, Cholecystectomy, Colonoscopy, Hernia repair, Prostate excision, Tonsillectomy, Vasectomy. Discharge Vitals Heart Rate (Peripheral) 65 Blood Pressure 137/64 Height 167 cm Height 66 in Weight 87.1 kg Weight 191.62 lb BMI 31.23 What to do next You Need to Schedule the Following Appointments Follow Up with GRAYSON CASON, ROMMEL Rivera When: Where: [facility] [address], [place] [address]- Medications What How Much When Instructions Unchanged amlodipine (amLODIPine 5 mg Tab) By Mouth Every day Contact prescribing physician if questions or concerns Unchanged aspirin (Aspir 81) By Mouth Every day Contact prescribing physician if questions or concerns Unchanged clopidogrel (Plavix 75 mg Tab) By Mouth Every day Contact prescribing physician if questions or concerns Unchanged dorzolamide ophthalmic (dorzolamide ophthalmic 2% solution) 1 Drops Ophthalmic 2 times a day each eye Contact prescribing physician if questions or concerns Unchanged fluticasone (fluticasone propionate) 50 Microgram Inhalation 2 times a day Contact prescribing physician if questions or concerns Unchanged fluticasone nasal (fluticasone 0.05 mg/ inh Nasal [place]) Every day Contact prescribing physician if questions or concerns Unchanged furosemide (furosemide 20 mg Tab) By Mouth Every day Contact prescribing physician if questions or concerns Unchanged gabapentin (gabapentin 600 mg Tab) 600 Milligram By Mouth 3 times a day Contact prescribing physician if questions or concerns Unchanged irbesartan (irbesartan 300 mg Tab) By Mouth Every day Contact prescribing physician if questions or concerns Unchanged isosorbide mononitrate 30 Milligram By Mouth Once a day (in the morning) Contact prescribing physician if questions or concerns Unchanged latanoprost ophthalmic Once a day (in the evening) Contact prescribing physician if questions or concerns Unchanged loperamide (loperamide 2 mg Tab) 1 Tablets By Mouth Every 4 hours Contact prescribing physician if questions or concerns Unchanged metformin (metformin 500 mg ER Tab) By Mouth 2 times a day Contact prescribing physician if questions or concerns Unchanged multivitamin with minerals (Multivitamin, Therapeutic w/ Minerals) By Mouth Every day Contact prescribing physician if questions or concerns Unchanged omeprazole By Mouth Every day Contact prescribing physician if questions or concerns Unchanged pantoprazole (Pantoprazole [address] Tab) By Mouth Every day Contact prescribing physician if questions or concerns Unchanged rosuvastatin (Crestor 10 mg Tab) By Mouth Every day Contact prescribing physician if questions or concerns Unchanged sotalol (sotalol 80 mg Tab) 0.5 tab By Mouth 2 times a day Contact prescribing physician if questions or concerns Unchanged sucralfate (sucralfate 1 g Tab) By Mouth Four times a day (before meals and at bedtime) Contact prescribing physician if questions or concerns Unchanged tizanidine (tiZANidine 4 mg Tab) 1 Tablets By Mouth Every day Contact prescribing physician if questions or concerns Unchanged trazodone (traZODONE 50 mg Tab) By Mouth Once a day (at bedtime) Contact prescribing physician if questions or concerns Test Results Urnls Dip Stick Auto w/o Microscopy POC 29589 (04/27/2022) Bilirubin Urine Dipstick - Negative Blood Urine Dipstick - Negative Glucose Urine Dipstick - Trace 100 mg/dl Ketones Urine Dipstick - Negative Leukocytes Urine Dipstick - 1+ Small Nitrite Urine Dipstick - Positive Protein Urine Dipstick - Negative Specific [place] Urine Dipstick - 1.020 Urine Appearance Urine Di (more content not included)... Normal [facility] Patient Educationon 04-27-20 Patient Education Urology Urodynamic Testing What is urodynamic testing? Urodynamic tests are done to determine how well your lower urinary tract is working. The lower urinary tract includes your bladder and the part of your body that drains urine from the bladder (urethra). When your kidneys filter your blood, urine is stored in your bladder until you feel the urge to urinate. Urination requires coordination between the nerves and muscles of your bladder and urethra. When your lower urinary tract is working well, you should be able to: ? Start urinating when your bladder is full. ? Empty your bladder completely. ? Control the flow of your urine. Why do I need urodynamic testing? You may need urodynamic testing to help find the cause of any of these problems: ? Leaking urine (incontinence). ? Problems starting or stopping your urine flow. ? Frequent or painful urination. ? Frequent urinary tract infections. ? Being unable to empty your bladder completely. ? Having strong urges to pass urine (urgency). ? Having a weak flow of urine. How do I prepare for the tests? ? Ask your health care provider about changing or stopping your regular medicines. This is especially important if you are taking diabetes medicines or blood thinners. ? You may be asked to avoid urinating before coming to the test so that you arrive with a full bladder. ? Tell a health care provider about: ? Any allergies you have. ? All medicines you are taking, including vitamins, herbs, eye drops, creams, and [id number] medicines. ? Whether you are or may be . What are the risks of this testing? Generally, these tests are safe. However, some of the tests have risks, including: ? Discomfort. ? Frequent urge to urinate. ? Bleeding. ? Infection. ? Allergic reactions to medicines or dyes (contrast material). How is urodynamic testing done? You may have various urodynamic tests. The tests may be done separately or may all be done during one testing visit. You may be given an antibiotic medicine before or after testing to help prevent infection. The types of tests that may be done include: Uroflowmetry This test measures how much urine you pass and how long it takes to pass. ? You will urinate into a certain type of toilet or device (flowmeter). ? The device will measure the volume and the time of your urine flow. ? These measurements will be sent to a computer that creates a graph of your urine flow. Postvoid residual measurement This test measures how much urine is left in your bladder after you urinate. ? The test may be done with ultrasound. In this method, sound waves and a computer will be used to create an image of your bladder. ? The test can also be done by inserting a thin, flexible tube (catheter) into your bladder after you urinate. The remaining urine will be removed through the catheter so it can be measured. ? Remaining urine will be measured in milliliters (mL). If you have more than 100 mL left in your bladder after you urinate, your bladder is not emptying as it should. Cystometric testing This test uses a type of bladder catheter that can measure pressure. ? You may be given a medicine to numb the area (local anesthetic). ? The area around the opening of your urethra will be cleaned. ? A urinary catheter will be passed through your urethra into your bladder and used to empty your bladder completely. ? Then a measuring catheter will be placed, and your bladder will be filled with warm, germ-free (sterile) water. ? Pressure measurements will be taken: ? As your bladder fills. ? When you feel the need to urinate. ? As your bladder is emptied. ? You may be asked to cough or bear down to check for leakage. ? In some cases, your bladder may be filled with a material that shows up on X-rays (contrast material) so that X-ray pictures can be taken during the test. Electromyogram This test measures the electrical activity of the nerves and muscles of your bladder and the opening of your urethra. ? Sticky patches (electrodes) will be placed near your rectum and urethra to measure electrical activity. ? The measurements will show how well your nerves are communicating with your muscles. What happens after the testing? ? You should be able to go home right away and do your usual activities. ? You may be told to drink a glass of water every 30 minutes for the first 2 hours after testing. ? Taking a warm bath or using warm, wet cloths (warm compresses) may relieve any discomfort near your urethra. ? Contact your health care provider if you have: ? Pain. ? Blood in your urine. ? Chills. ? Fever. What do the results mean? Talk with your health care provider about what your results mean. Some common causes for abnormal results from urodynamic tests include: ? Enlarged prostate in men. ? Overactive bladder. ? Urinary tract infection. ? Nervous system diseases. (more content not included)... Normal [facility] Urology Office/Clinic Noteon 04-27-2022 Urology Office/Clinic Note Chief Complaint 1 year f/u w/PSA HPI Staff Jeremie is a 81 y/o male here for a 1 year f/u w/PSA. PSA done 03/10/2022 was <0.05, Previous PSA done 11/08/2020 was <0.05. Previous DX: Leaking of urine, Personal history of prostate cancer, Right flank pain. Radical prostatectomy done over 20 years ago. Pt has had 2 previous sphincter implants to help with urinary leakage. Dysuria: _denies Incomplete bladder emptying: _denies Hematuria: _denies Frequency: _denies Urgency: _yes Nocturia: _denies Stream: _steady Leaking: _yes Post void dripping: _yes Wearing pads/ Depends: _yes changed 3-4x a day Urge incontinence: _yes Stress incontinence: _yes Incontinence without Sensory Awareness: _denies Abdominal pain: _denies Flank pain: _denies Sexual complaints: _ History of Present Illness Tests reviewed: reviewed UA, PSA. I have reviewed the previous health record information and history for this patient from Dr. Galicia. I have reviewed and verified the staff HPI to be accurate for this encounter. There have been no associated fever, chills, flank pain, or blood in the urine. Denies any urinary infections since last encounter. Review of Systems ROS - Provider Constitutional: denies weight loss, denies hot flashes. Eyes: denies eye problems. Gastrointestinal: denies nausea, denies vomiting. Cardiovascular: denies chest pain or angina. Integumentary: no dryness Musculoskeletal: denies musculoskeletal symptoms. ENMT: denies otolaryngeal symptoms. Respiratory: no shortness of breath. Heme/Lymph: denies easy bleeding tendency, denies easy bruising tendency. Psychiatric: no confusion, no anxiety. Genitourinary: denies dysuria, denies hematuria, denies discharge, denies urinary frequency, denies urinary hesitancy, denies nocturia, denies incontinence, denies genital sores, denies decreased libido, and denies erectile dysfunction. Physical Exam Vitals & Measurements HR: 65(Peripheral) BP: 137/64 HT: 66 in HT: 167 cm WT: 87.1 kg WT: 191.62 lb BMI: 31.23 General Appearance: alert, no distress, well nourished, well developed male. Genitourinary: normal scrotum, normal testes, normal urethra, normal epididymis, normal vas deferens/spermatic cord. Flank Pain: none. Bladder: nonpalpable. Assessment/Plan 1. Personal history of prostate cancer (Z85.46: Personal history of malignant neoplasm of prostate) S/p Radical prostatectomy done 20+ years ago. Current PSA <0.05 done 03/10/22, previously <0.05 done 11/08/20. Discussed PSA, remains stable, unchanged. 2. Mixed incontinence (N39.46: Mixed incontinence) S/p pt has had 2 previous sphincter implants to help with urinary leakage. Pt experiencing urgency, leaking, PVD, mixed incontinence. Wears pads/depends, changes 3-4x/day. Pt started using Lynn clamp at prior visit. 3. UTI (urinary tract infection) (N39.0: Urinary tract infection, site not specified) UA today shows positive nitrites and small leuks. Pt denies odor, burning, pain, blood, fever, shaking, chills. Pt does not CIC. Pt is asx but has a sphincter in place. Discussed possible erosion of sphincter, exam with cysto in future. Pt will take Keflex 250 BID x 10ct starting 3 days before cysto. Will schedule cysto. The risks and benefits for cystoscopy have been discussed. The risks include bleeding, infection, and irritation of the bladder and urinary channel, among others. The patient, after being informed of procedural details and after questions have been answered, wishes to proceed. Full informed consent has been obtained. Will order Local anesthesia. Abx sent to pharmacy. Follow-up With When Contact Information GRAYSON CASON, Dequan Cline, URL [facility] [address], [place] [address]- Additional Instructions: schedule cysto Patient Education Urodynamic Testing IMegan, personally scribed for Dr. Galicia on 04/27/2022 09:40:47. . Documentation recorded by the scribe, Megan Pickett, accurately reflects the services(s) I performed and decisions made by me. Authenticated by Dr. Galicia on 04/27/2022 09:41:59. Problem List/Past Medical History Ongoing BMI 30.0-30.9,adult Diabetes Diabetic neuropathy GERD with apnea Glaucoma Heartburn Hypercholesterolemia Hypertension Leaking of urine Lower abdominal pain Mixed incontinence Osteoarthritis Pacemaker Personal history of prostate cancer Prostatitis PUD (peptic ulcer disease) Right flank pain, chronic Right-sided chest wall pain Sleep apnea Upper abdominal pain Urinary incontinence without sensory awareness UTI (urinary tract infection) Vitamin D deficiency Historical No qualifying data Procedure/Surgical History Esophagogastroduodenosc opy (05/20/2020), Angioplasty, Cardiac pacemaker procedure, Cholecystectomy, Colonoscopy, Hernia repair, Prostate excision, Tonsillectomy, Vasectomy. Medications amLODIPine 5 (more content not included)... Normal [facility] Comment on above: Result Comment: Elec tronically Signed By: Dequan GALICIA MD\.br\Date and Time Signed: 04/27/22 09:42 EST\.br\Electronically Co-Signed By: Megan Pickett\.br\Date and Time Co-Signed: 04/27/22 09:41 EST US ARTERY UP EXT BILon 04-16 US ARTERY UP EXT DEANNE EXAMINATION: US ARTERY UP EXT DEANNE HISTORY: Pain in upper limb COMPARISON: No relevant comparison available. TECHNIQUE: Color duplex Doppler ultrasound evaluation analysis was performed in the usual manner. FINDINGS: LEFT UPPER EXTREMITY ARTERIAL PSV cm/s Subclavian: 124 Maxillary: 98 Brachial: 124 Radial: 54 Ulnar: 101 RIGHT UPPER EXTREMITY ARTERIAL PSV cm/s: Subclavian: 148 Maxillary: 140 Brachial: 153 Radial: 136 Ulnar: 94 WAVE FORM: Normal triphasic waveform throughout both upper extremities. VESSEL LUMEN: No significant narrowing or atherosclerotic disease. FLOW VELOCITY: No significantly increased or decreased flow velocity. IMPRESSION: No significant flow stenosis, occlusion or aneurysm observed Electronically authenticated by: ERWIN FALCON Date: 2022-04-16 17:21 Normal [facility] LACTOFERRIN FECAL QUANTon Lactoferrin, Fecal, Quant. 1.43 ug/mL(g) Normal 0.00-7.24 [facility] Comment on above: Result Comment: . Baseline (normal) 0.00 - 7.24 Elevated >7.24 . An elevated result is indicative of the presence of fecal lactoferrin, a marker of intestinal inflammation. A normal result does not exclude the presence of intestinal inflammation. The test can be used as an in vitro diagnostic aid to distinguish patients with active inflammatory bowel disease (IBD) from those with non-inflammatory irritable bowel syndrome (IBS). Performed By: #### C XSTOOL #### [facility] [address] [place] [address] Dr. Ramsey Sanchez CBC AUTO DIFFon 03-10-2022 BASO # 0.1 103/ul Normal 0.0-0.1 [facility] Comment on above: Performed By: #### C BC #### [facility] [address] [place], [place] [id number] Dr. Ramsey Sanchez Basophils/100 WBC (Bld) 0.9 % Normal 0.2-2.0 [facility] Comment on above: Performed By: #### C BC #### [facility] [address] [place] [address] Dr. Ramsey Sanchez EO # 0.3 103/ul Normal 0.0-0.7 [facility] Comment on above: Performed By: #### C BC #### [facility] [address] [place] [address] Dr. Ramsey Sanchez Eosinophils/100 WBC (Bld) 2.6 % Normal 0.9-7.0 [facility] Comment on above: Performed By: #### C BC #### [facility] [address] [place] [address] Dr. Ramsey Sanchez Erythrocyte distribution width (RBC) [Ratio] 13.2 % Normal 11.0-15.0 [facility] Comment on above: Performed By: #### C BC #### [facility] [address] [place] [address] Dr. Ramsey Sanchez Hematocrit (Bld) [Volume fraction] 46.1 % Normal 42.0-54.0 [facility] Comment on above: Performed By: #### C BC #### [facility] [address] [place] [address] Dr. Ramsey Sanchez Hemoglobin (Bld) [Mass/Vol] 14.5 g/dL Normal 14.0-18.0 [facility] Comment on above: Performed By: #### C BC #### [facility] [address] [place] [address] Dr. Ramsey Sanchez IG # 0.15 10e3/ul Critically high 0.00-0.03 [facility] Comment on above: Performed By: #### C BC #### [facility] [address] [place] [address] Dr. Ramsey Sanchez IG % 1.3 % Critically high 0.0-0.5 [facility] Comment on above: Performed By: #### C BC #### [facility] [address] [place], [place] [id number] Dr. Ramsey Sanchez LYMPH # 2.7 103/ul Normal 1.2-3.8 [facility] Comment on above: Performed By: #### C BC #### [facility] [address] [place] [address] Dr. Ramsey Sanchez Lymphocytes/100 WBC (Bld) 23.0 % Normal 20.5-60.0 [facility] Comment on above: Performed By: #### C BC #### [facility] [address] [place] [address] Dr. Ramsey Sanchez MANUAL DIFF REQ NO Normal [facility] Comment on above: Performed By: #### C BC #### [facility] [address] [place] [address] Dr. Ramsey Sanchez MCH (RBC) [Entitic mass] 31.0 pg Normal 25.9-34.0 [facility] Comment on above: Performed By: #### C BC #### [facility] [address] [place] [address] Dr. Ramsey Sanchez MCHC (RBC) [Mass/Vol] 31.5 g/dL Normal 29.9-35.2 [facility] Comment on above: Performed By: #### C BC #### [facility] [address] [place] [address] Dr. Ramsey Sanchez MCV (RBC) [Entitic vol] 98.5 fL Critically high 80.0-94.0 [facility] Comment on above: Performed By: #### C BC #### [facility] [address] [place] [address] Dr. Ramsey Sanchez MONO # 0.9 103/ul Critically high 0.3-0.8 The [facility] Comment on above: Performed By: #### C BC #### [facility] [address] [place] [address] Dr. Ramsey Sanchez Monocytes/100 WBC (Bld) 7.4 % Normal 1.7-12.0 [facility] Comment on above: Performed By: #### C BC #### [facility] [address] [place] [address] Dr. Ramsey Sanchez NEUT # 7.6 103/ul Critically high 1.4-6.5 [facility] Comment on above: Performed By: #### C BC #### [facility] [address] [place] [address] Dr. Ramsey Sanchez Neutrophils/100 WBC (Bld) 64.8 % Normal 43.0-75.0 [facility] Comment on above: Performed By: #### C BC #### [facility] [address] [place] [address] Dr. Ramsey Sanchez Platelet mean volume (Bld) [Entitic vol] 11.5 fL Normal 9.5-13.5 [facility] Comment on above: Performed By: #### C BC #### [facility] [address] [place] [address] Dr. Ramsey Sanchez PLT 243 103/ul Normal 150-450 [facility] Comment on above: Performed By: #### C BC #### [facility] [address] [place] [address] Dr. Ramsey Sanchez RBC 4.68 106/ul Critically low 4.70-6.10 [facility] Comment on above: Performed By: #### C BC #### [facility] [address] [place] [address] Dr. Ramsey Sanchez WBC 11.7 103/ul Critically high 4.0-11.0 [facility] Comment on above: Performed By: #### C BC #### [facility] [address] [place] [address] Dr. Ramsey Sanchez GLYCOHEMOGLOBIN A1Con 2021 ADA RECOMMENDATION SEE BELOW Normal [facility] Comment on above: Result Comment: ADA RECOMMENDED LIMIT 4.0 - 6.0 ADA THERAPEUTIC TARGET < 7.0 ACTION SUGGESTED > 7.0 Performed By: #### A 1C #### [facility] [address] [place] [address] Dr. Ramsey Sanchez Glucose [Mass/Vol] 123 mg/dL Normal [facility] Comment on above: Performed By: #### A 1C #### [facility] [address] [place] [address] Dr. Ramsey Sanchez HbA1c (Bld) [Mass fraction] 5.9 % Normal 4.5-6.2 [facility] Comment on above: Performed By: #### A 1C #### [facility] [address] [address] [address] Ramsey Sanchez LIPID PROFILEon 03-10-2022 CHOL-HDL RATIO NORM SEE BELOW Normal [facility] Comment on above: Result Comment: 3.3 - 4.4 LOW RISK 4.4 - 7.1 AVERAGE RISK 7.1 - 11.0 MODERATE RISK >11.0 HIGH RISK Performed By: #### C BC #### [facility] [address] [address] [address] Ramsey Sanchez Cholesterol [Mass/Vol] 121 mg/dL Normal <=200 [facility] Comment on above: Performed By: #### C BC #### [facility] [address] [address] [address] Ramsey Sanchez Cholesterol in HDL [Mass/Vol] 30 mg/dL Critically low 40-60 [facility] Comment on above: Performed By: #### C BC #### [facility] [address] [address] [address] Ramsey Sanchez Cholesterol in LDL [Mass/Vol] 47.6 mg/dL Normal [facility] Comment on above: Performed By: #### C BC #### [facility] [address] [address] [address] Ramsey Sanchez Cholesterol.total/ Cholesterol in HDL [Mass ratio] 4.0 {ratio} Normal [facility] Comment on above: Performed By: #### C BC #### [facility] [address] [address] [address] Ramsey Sanchez HDL NORMAL > or = 60 mg/dl - LO W CARDIOVASCULAR RISK <40 mg/dl - HIGH CARDIOVASCULAR RISK Normal [facility] Comment on above: Performed By: #### C BC #### [facility] [address] [address] [address] Ramsey Sanchez LDL CALC NORMAL SEE BELOW Normal [facility] Comment on above: Result Comment: <100 mg/dl OPTIMAL 100 - 129 mg/dl NEAR OR ABOVE OPTIMAL 130 - 159 mg/dl BORDERLINE HIGH 160 - 189 mg/dl HIGH >190 mg/dl VERY HIGH Performed By: #### C BC #### [facility] [address] [place] [address] Dr. Ramsey Sanchez Triglyceride [Mass/Vol] 217 mg/dL Critically high <=150 [facility] Comment on above: Performed By: #### C BC #### [facility] [address] [place] [address] Dr. Ramsey Sanchez VLDL CALC 43.4 mg/dL Normal [facility] Comment on above: Performed By: #### C BC #### [facility] [address] [place] [address] Dr. Ramsey Sanchez LIVER PROFILEon 03-10-2022 Albumin [Mass/Vol] 3.9 g/dL Normal 3.4-5.0 [facility] Comment on above: Performed By: #### C BC #### [facility] [address] [place] [address] Dr. Ramsey Sanchez Albumin/Globulin [Mass ratio] 1.1 {ratio} Normal [facility] Comment on above: Performed By: #### C BC #### [facility] [address] [place] [address] Dr. Ramsey Sanchez ALP [Catalytic activity/Vol] 75 U/L Normal 46-116 [facility] Comment on above: Performed By: #### C BC #### [facility] [address] [place] [address] Dr. Ramsey Sanchez ALT [Catalytic activity/Vol] 21 U/L Normal 16-63 [facility] Comment on above: Performed By: #### C BC #### [facility] [address] [place] [address] Dr. Ramsey Sanchez AST [Catalytic activity/Vol] 17 U/L Normal 15-37 [facility] Comment on above: Performed By: #### C BC #### [facility] [address] [place] [address] Dr. Ramsey Sanchez BILI, CONJUGATED 0.1 mg/dL Normal 0.0-0.2 [facility] Comment on above: Performed By: #### C BC #### [facility] [address] [address] [address] Ramsey Sanchez Bilirubin [Mass/Vol] 0.4 mg/dL Normal 0.2-1.0 [facility] Comment on above: Performed By: #### C BC #### [facility] [address] [place] [address] Dr. Ramsey Sanchez Globulin (S) [Mass/Vol] 3.5 g/dL Normal [facility] Comment on above: Performed By: #### C BC #### [facility] [address] [place] [address] Dr. Ramsey Sanchez Protein [Mass/Vol] 7.4 g/dL Normal 6.4-8.2 [facility] Comment on above: Performed By: #### C BC #### [facility] [address] [place] [address] Dr. Ramsey Sanchez MICROALBUMIN, GRAHAM URon 02-15 mALB <1.3 Normal <=30.0 [facility] Comment on above: Performed By: #### M ALBR #### [facility] [address] [place] [address] Dr. Ramsey Sanchez PROF CHEM 8 (BAS METB)on Anion gap [Moles/Vol] 12.6 mmol/L Normal [facility] Comment on above: Performed By: #### C BC #### [facility] [address] [place] [address] Dr. Ramsey Sanchez Calcium [Mass/Vol] 8.9 mg/dL Normal 8.5-10.1 [facility] Comment on above: Performed By: #### C BC #### [facility] [address] [place] [address] Dr. Ramsey Sanchez Chloride [Moles/Vol] 103 mmol/L Normal 98-107 [facility] Comment on above: Performed By: #### C BC #### [facility] [address] [place] [address] Dr. Ramsey Sanchez CO2 [Moles/Vol] 28.5 mmol/L Normal 21.0-32.0 [facility] Comment on above: Performed By: #### C BC #### [facility] [address] [address] [address] Ramsey Sanchez Creatinine [Mass/Vol] 0.89 mg/dL Normal 0.70-1.30 [facility] Comment on above: Performed By: #### C BC #### [facility] [address] [address] [address] Ramsey Sanchez EGFR-AF PORTUGUESE >60 Normal >=60 [facility] Comment on above: Performed By: #### C BC #### [facility] [address] [address] [address] Ramsey Sanchez EGFR-NON AF PORTUGUESE >60 Normal >=60 [facility] Comment on above: Performed By: #### C BC #### [facility] [address] [place] [address] Dr. Ramsey Sanchez Glucose [Mass/Vol] 102 mg/dL Normal 74-106 [facility] Comment on above: Performed By: #### C BC #### [facility] [address] [place] [address] Dr. Ramsey Sanchez Potassium [Moles/Vol] 4.1 mmol/L Normal 3.5-5.1 [facility] Comment on above: Performed By: #### C BC #### [facility] [address] [place] [address] Dr. Ramsey Sanchez Sodium [Moles/Vol] 140 mmol/L Normal 136-145 [facility] Comment on above: Performed By: #### C BC #### [facility] [address] [place] [address] Dr. Ramsey Sanchez Urea nitrogen [Mass/Vol] 16.0 mg/dL Normal 7.0-18.0 [facility] Comment on above: Performed By: #### C BC #### [facility] [address] [place] [address] Dr. Ramsey Sanchez Urea nitrogen/Creatinin e [Mass ratio] 18.0 mg/mg Normal [facility] Comment on above: Performed By: #### C BC #### [facility] [address] [place] [address] Dr. Ramsey Sanchez STOOL CULTUREon 03-10-2022 Campylobacter Culture Final report Normal [facility] Comment on above: Performed By: #### C XSTOOL #### [facility] [address] [place] [address] Dr. Ramsey Sanchez E coli Shiga Toxin EIA Negative Normal Negative [facility] Comment on above: Performed By: #### C XSTOOL #### [facility] [address] [place] [address] Dr. Ramsey Sanchez Result 1 Comment Normal [facility] Comment on above: Result Comment: No S almonella or Shigella recovered. Performed By: #### C XSTOOL #### [facility] [address] [place] [address] Dr. Ramsey Sanchez Result Comment: No C ampylobacter species isolated. Salmonella/Shigell a Screen Final report Normal [facility] Comment on above: Performed By: #### C XSTOOL #### [facility] [address] [place] [address] Dr. Ramsey Sanchez VITAMIN D 25 OHon 03-10-2022 VIT D 25-OH 40.2 ng/mL Normal [facility] Comment on above: Performed By: #### V ITAD #### [facility] [address] [place] [address] Dr. Ramsey Sanchez VIT D RANGES SEE BELOW Normal [facility] Comment on above: Result Comment: <20 ng/mL Vit D deficient 20 - <30 ng/mL Vit D insufficient 30 - 100 ng/mL Vit D sufficient >100 ng/mL Potential Toxicity Performed By: #### V ITAD #### [facility] [address] [place] [address] Dr. Ramsey Sanchez POC GLUCOSE LABon 08-31-2019 Glucose [Mass/Vol] 120 mg/dL High 70-100 [facility] Comment on above: Performed By: #### 8 5499 #### [facility] [address] [place] [address], [facility] Glucose [Mass/Vol] 114 mg/dL High 70-100 [facility] Comment on above: Performed By: #### 8 [id number] #### [facility] [address] [place] [address], [place] Glucose [Mass/Vol] 136 mg/dL High 70-100 [facility] Comment on above: Performed By: #### 8 [id number] #### [facility] [address] [place] [address], [place] BASIC METABOLIC PANELon 08-15 Calcium [Mass/Vol] 9.3 mg/dL Normal 8.6-10.3 [facility] Comment on above: Performed By: #### 0 0071 #### [facility] [address] [place] [address], [place] Chloride [Moles/Vol] 103 mmol/L Normal 98-107 [facility] Comment on above: Performed By: #### 0 0071 #### [facility] [address] [place] [address], [place] CO2 [Moles/Vol] 27 mmol/L Normal 21-31 [facility] Comment on above: Performed By: #### 0 0071 #### [facility] [address] [place] [address], [place] Creatinine [Mass/Vol] 1.04 mg/dL Normal 0.70-1.30 [facility] Comment on above: Performed By: #### 0 0071 #### [facility] [address] [place] [address], [place] GFR/1.73 sq M predicted among blacks MDRD (S/P/Bld) [Vol rate/Area] mL/min/{1.73_m2} Normal >60 [facility] Comment on above: Result Comment: Calc ulation may not be valid for patients over 70 years Performed By: #### 0 0071 #### [facility] [address] [place] [address], [place] GFR/1.73 sq M predicted among non-blacks MDRD (S/P/Bld) [Vol rate/Area] mL/min/{1.73_m2} Normal >60 [facility] Comment on above: Result Comment: Calc ulation may not be valid for patients over 70 years Performed By: #### 0 0071 #### [facility] [address] [place] [address], [facility] Glucose [Mass/Vol] 128 mg/dL High 70-100 [facility] Comment on above: Performed By: #### 0 0071 #### [facility] [address] [place] [address], [facility] Potassium [Moles/Vol] 4.2 mmol/L Normal 3.5-5.1 [facility] Comment on above: Performed By: #### 0 0071 #### [facility] [address] [place] [address], [facility] Sodium [Moles/Vol] 139 mmol/L Normal 136-145 [facility] Comment on above: Performed By: #### 0 0071 #### [facility] [address] [place] [address], [facility] Urea nitrogen [Mass/Vol] 20 mg/dL Normal 7-25 [facility] Comment on above: Performed By: #### 0 0071 #### [facility] [address] [place] [address], [facility] CBC COMPLETE BLOOD COUNTon 08-30-2019 Erythrocyte distribution width (RBC) [Ratio] 13.9 % Normal 11.5-15.0 [facility] Comment on above: Performed By: #### 5 0608 #### [facility] [address] [place] [address], [facility] Hematocrit (Bld) [Volume fraction] 44.9 % Normal 39.0-50.0 [facility] Comment on above: Performed By: #### 5 0608 #### [facility] [address] Hemoglobin (Bld) [Mass/Vol] 14.5 g/dL Normal 13.0-17.0 [facility] Comment on above: Performed By: #### 5 0608 #### [facility] [address] [facility] [address], [facility] MCH (RBC) [Entitic mass] 30.7 pg Normal 27.0-33.0 [facility] Comment on above: Performed By: #### 5 0608 #### [facility] [address] [place] [address], [facility] MCHC (RBC) [Mass/Vol] 32.3 g/dL Normal 32.0-35.0 [facility] Comment on above: Performed By: #### 5 0608 #### [facility] [address] [facility]. [address] MCV (RBC) [Entitic vol] 95.1 fL Normal 82.0-98.0 [facility] Comment on above: Performed By: #### 5 0608 #### [facility] [address] Nucleated RBC/100 WBC (Bld) [Ratio] 0 % Normal 0-0 [facility] Comment on above: Performed By: #### 5 0608 #### [facility] [address] [place] [address], [facility] PLAT CNT 238 10*3/uL Normal 150-400 [facility] Comment on above: Performed By: #### 5 0608 #### [facility] [address] [place] [address], [facility] RBC (Bld) [#/Vol] 4.72 10*6/uL Normal 4.20-5.70 [facility] Comment on above: Performed By: #### 5 0608 #### [facility] [address] [place] [address], [facility] WBC (Bld) [#/Vol] 12.83 10*3/uL High 4.00-10.60 [facility] Comment on above: Performed By: #### 5 0608 #### [facility] [address] [facility] [address] Cardiovascular Lab Reporton 08-30-2019 Cardiovascular Lab Report [facility] Patient Name: Jeremie Bennett [facility] MR #: [id number] Physician: Margaret Arellano, Department of M.D. Medicine Service Date: 08/30/2019 Division of Birthdate: 1940 Cardiology Room #: 3AB [id number] Adult Cardiovascular Services [facility] [address] [facility]. [place] [address] Cardiovascular Laboratory Report FINAL IMPRESSIONS: 1. 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 2. 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 3. 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 4. Ezjg-sg-krmpevdg disease of the left anterior descending coronary artery. 5. Low normal global left ventricular systolic function by noninvasive imaging. RECOMMENDATIONS: 1. Aspirin 81 mg lifelong. 2. Plavix 75 mg daily, preferably for 6 months or longer. 3. Elective surgery should be deferred for a minimum of 3-6 months depending on the urgency; discussions regarding discontinuation of dual antiplatelet therapy will be held as an outpatient. 4. Aggressive cardiovascular risk factor modification. 5. Optimization of medical management; high-intensity statin therapy, beta gabo, and an angiotensin receptor gabo will be continued. 6. Follow up with Dr. Arellano in the [place] office in the next 2 to 4 weeks. 7. Follow up with his family physician as scheduled. PROCEDURES: Failed attempt at left radial access, limited left common femoral angiography, bilateral selective coronary angiography, percutaneous balloon angioplasty and Synergy drug-eluting stent placement in the 1st and 2nd obtuse marginal branches of the left circumflex coronary artery, failed MynxGrip closure device. METHODS: After risks, benefits, and alternatives were explained, written informed consent was obtained. The patient was prepped and draped in usual sterile fashion over the left wrist and left groin. Using 1% lidocaine solution, local infiltration anesthesia was achieved over the left wrist. Attempts to cannulate the left radial artery were unsuccessful due to the small size of the vessel as evidence by ultrasound. Manual pressure was held for hemostasis. Local infiltration anesthesia was achieved over the left groin. Access to the left common femoral artery was obtained. A 6-Swedish 11 cm sheath was inserted without difficulty. Limited femoral angiography was performed. Bilateral selective coronary angiography was performed using JL4 and JR4 catheters. After reviewing the images, it was elected to proceed with an interventional procedure. A 6-Swedish XB 3.5 guide catheter was advanced over J-wire and coaxially engaged into the left main ostium. A 0.014 run-through NS wire was advanced through the catheter across the suspect stenosis in the second obtuse marginal and positioned distally. Balloon angioplasty was performed using a 2.5 x 15 mm noncompliant balloon. An inadequate result was treated using a 2.75 x 20 mm Synergy drug-eluting stent. Final images showed KIM-3 flow with no dissection, thrombus, or distal wire trauma. The wire was redirected into the first obtuse marginal branch. Direct stent placement using a 2.5 x 24 mm Synergy stent was performed. Repeat imaging showed an optimal result. The wire was removed. Final images showed KIM-3 flow with no dissection, thrombus, or distal wire trauma. At this point, it was elected to conclude the procedure. Attempts to deploy a 6-Swedish MynxGrip closure device were unsuccessful. Therefore, manual pressure was held for hemostasis. Overall, the patient tolerated the procedure well. There were no overt complications. He was to be transferred to the holding area in stable condition. FINDINGS: Hemodynamics: AO 117/65. LEFT VENTRICULOGRAPHY: This was not performed. Ejection fraction was 52% by stress testing. CORONARY ARTERIES: Left main coronary artery. This arises from the left coronary cusp. It bifurcates into the left anterior descending and left circumflex coronary artery and is free of significant stenosis. It is a short vessel. Left anterior descending coronary artery. This shows a 30-40% proximal stenosis and a 40% mid vessel stenosis. There is diffuse plaque in caliber reduction distally. Left circumflex coronary artery. This is a codominant vessel giving rise to posterolateral branches. Baseline imaging shows a 70% sequential lesions in the first obtuse marginal branch, which were reduced to 0% by direct stent placement of a 2.5 x 24 mm Synergy stent. The 2nd obtuse marginal shows a previously placed stent with a 90% in-stent restenosis. This was reduced to 0% by balloon angioplasty and placement of a 2.75 x 20 mm Synergy stent. The true circumflex continues as an AV groove branch giving rise to the posterolateral branches. It has significant calcification in this area with a 30% stenosis at the bifurcation with the second obtuse marginal branch. Final images showed KIM-3 flow with no dissection, thrombus, or distal wire trauma. Right coronary artery. This appears to be a codominant vessel giving rise to a small caliber posterior descending artery. 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 The vessel is 2 mm in size or less. This was left untreated. Limited femoral angiography shows mild plaque a low stick and anatomy suitable for a MynxGrip closure device which failed. Manual pressure was held for hemostasis. INDICATIONS: Preoperative evaluation, abnormal stress test. Electronically Signed by: Margaret Arellano M.D. 09/01/2019 10:10 A Margaret Arellano M.D. Date Dict: 08/30/2019/01:09 Jeanmarie Arellano M.D. Date Trans: 08/30/2019 05:00 P/emmanuelle [id number] cc: Sabino Cooper MD [address] [facility] [address] Normal [facility] POC GLUCOSE LABon 08-30-2019 Glucose [Mass/Vol] 172 mg/dL High 70-100 [facility] Comment on above: Performed By: #### [id number] #### [facility] [address] [place] [address], [facility] Glucose [Mass/Vol] 138 mg/dL High 70-100 [facility] Comment on above: Performed By: #### 8 [id number] #### [facility] [address] Vital Signs Date Time Vital Sign Value Performing Clinician Facility 04-01-2023 13:15-0500 Body temperature 97.11 [degF] Vaishali Pringle MD Work Phone: [facility] 04-01-2023 13:15-0500 Body weight 75.75 kg Vaishali Pringle MD Work Phone: [facility] 04-01-2023 13:15-0500 Diastolic blood pressure 66 mm[Hg] Vaishali Pringle MD Work Phone: [facility] 04-01-2023 13:15-0500 Heart rate 70 /min Vaishali Pringle MD Work Phone: [facility] 04-01-2023 13:15-0500 SaO2% (BldA) [Mass fraction] 97 % Vaishali Pringle MD Work Phone: [facility] 04-01-2023 13:15-0500 Systolic blood pressure 109 mm[Hg] Vaishali Pringle MD Work Phone: [facility] 03-10-2023 08:53-0400 Blood Pressure Location Anjali Ruby [facility] 03-10-2023 08:53-0400 Body temperature 97.16 [degF] Anjali Ruby [facility] 03-10-2023 08:53-0400 Diastolic blood pressure 72 mm[Hg] [facility] [facility] 03-10-2023 08:53-0400 Heart rate 63 /min Anjali Ruby [facility] 03-10-2023 08:53-0400 Systolic blood pressure 117 mm[Hg] Anjali Ruby [facility] 02-25-2023 13:27-0400 Blood Pressure Location Anjali Ruby [facility] 02-25-2023 13:27-0400 Body temperature 98.06 [degF] Anjali Ruby [facility] 02-25-2023 13:27-0400 Diastolic blood pressure 75 mm[Hg] Anjali Ruby [facility] 02-25-2023 13:27-0400 Heart rate 85 /min Anjali Ruby [facility] 02-25-2023 13:27-0400 Respiratory rate 16 /min Anjali Ruby [facility] 02-25-2023 13:27-0400 Systolic blood pressure 122 mm[Hg] Anjali Ruby [facility] 01-29-2023 10:15-0400 Body height 167.64 cm Gisele Brunson Other [employer] Other 01-29-2023 10:15-0400 Body mass index (BMI) [Ratio] 28.24 kg/m2 Gisele Brunson Other [employer] Other 01-29-2023 10:15-0400 Body weight 79.38 kg Gisele Brunson Other [employer] Other 01-29-2023 10:15-0400 Diastolic blood pressure 75 mm[Hg] Gisele Brunson Other [employer] Other 01-29-2023 10:15-0400 SaO2% (BldA) [Mass fraction] 95 % Gisele Brunson Other [employer] Other 01-29-2023 10:15-0400 Systolic blood pressure 118 mm[Hg] Gisele Brunson Other [employer] Other 01-12-2023 09:22-0400 Blood Pressure Location Anjali Ruby [facility] 01-12-2023 09:22-0400 Body temperature 96.98 [degF] Anjali Ruby [facility] 01-12-2023 09:22-0400 Diastolic blood pressure 68 mm[Hg] Anjali Ruby [facility] 01-12-2023 09:22-0400 Heart rate 69 /min Anjali Ruby [facility] 01-12-2023 09:22-0400 Systolic blood pressure 109 mm[Hg] Anjali Ruby [facility] 10-13-2022 09:45-0400 Body height 167.64 cm Gisele Brunson Other [employer] Other 10-13-2022 09:45-0400 Body mass index (BMI) [Ratio] 27.92 kg/m2 Gisele Brunson Other [employer] Other 10-13-2022 09:45-0400 Body weight 78.47 kg Gisele Brunson Other [employer] Other 10-13-2022 09:45-0400 Diastolic blood pressure 70 mm[Hg] Gisele Brunson Other [employer] Other 10-13-2022 09:45-0400 SaO2% (BldA) [Mass fraction] 95 % Gisele Brunson Other [employer] Other 10-13-2022 09:45-0400 Systolic blood pressure 116 mm[Hg] Gisele Brunson Other [employer] Other 09-22-2022 18:14-0400 Body temperature 99.86 [degF] Gordy Sánchez [facility] 09-22-2022 16:28-0400 Body temperature 101.3 [degF] Gordy Sánchez [facility] 09-22-2022 16:28-0400 Diastolic blood pressure 61 mm[Hg] Gordy Sánchez [facility] 09-22-2022 16:28-0400 Heart rate 79 /min Gordy Sánchez [facility] 09-22-2022 16:28-0400 Respiratory rate 17 /min Gordy Sánchez [facility] 09-22-2022 16:28-0400 SaO2% (BldA) [Mass fraction] 93 % Gordy Sánchez [facility] 09-22-2022 16:28-0400 Systolic blood pressure 111 mm[Hg] Gordy Sánchez [facility] 09-22-2022 14:10-0400 Body height 167.64 cm Griselda Pennington Other [employer] Other 09-22-2022 14:10-0400 Body mass index (BMI) [Ratio] 29.7 kg/m2 Griselda Pennington Other [employer] Other 09-22-2022 14:10-0400 Body temperature 100 [degF] Griselda Pennington Other [employer] Other 09-22-2022 14:10-0400 Body weight 83.46 kg Griselda Pennington Other [employer] Other 09-22-2022 14:10-0400 Respiratory rate 18 /min Griselda Pennington Other [employer] Other 09-22-2022 14:10-0400 SaO2% (BldA) [Mass fraction] 93 % Griselda Pennington Other [employer] Other 07-29-2022 10:15-0400 Body height 167.64 cm Erwin Salazar Other [employer] Other 07-29-2022 10:15-0400 Body mass index (BMI) [Ratio] 30.02 kg/m2 Erwin Salazar Other [employer] Other 07-29-2022 10:15-0400 Body weight 84.37 kg Erwin Salazar Other [employer] Other 07-29-2022 10:15-0400 Diastolic blood pressure 65 mm[Hg] Erwin Salazar Other [employer] Other 07-29-2022 10:15-0400 SaO2% (BldA) [Mass fraction] 94 % Erwin Salazar Other [employer] Other 07-29-2022 10:15-0400 Systolic blood pressure 102 mm[Hg] Erwin Salazar Other [employer] Other 11-29-2021 10:25-0400 Body height 167.64 cm Leti Garcia Other [employer] Other 11-29-2021 10:25-0400 Body temperature 96.9 [degF] Leti Garcia Other [employer] Other 11-29-2021 10:25-0400 Respiratory rate 18 /min Leti Garcia Other [employer] Other 11-29-2021 10:25-0400 SaO2% (BldA) [Mass fraction] 93 % Leti Garcia Other [employer] Other Encounters Encounter Date Encounter Type Care Provider Facility Start: 04-15-2023 End: 04-16-2023 ambulatory Gordy Powers Facility:[facility] Start: 04-14-2023 End: 04-14-2023 ambulatory [facility] Start: 04-05-2023 Telephone encounter Vaishali orr MD Work Phone: General Surgery Comment on above: [facility] Start: 04-01-2023 End: 04-01-2023 ambulatory VAISHALI PRINGLE Facility:[facility] Start: 04-01-2023 End: 04-01-2023 Patient encounter procedure Vaishali Pringle MD Work Phone: General Surgery Comment on above: IPMN (intraductal pa pillary mucinous neoplasm) (Primary Dx) Start: 03-10-2023 End: 03-11-2023 ambulatory Anjali Ruby Facility:[facility] Start: 03-10-2023 End: 03-11-2023 ambulatory Anjali Ruby Facility:[facility] Start: 03-10-2023 End: 03-10-2023 Patient encounter procedure Anjali Ruby [facility] Start: 03-10-2023 End: 03-10-2023 Patient encounter procedure Anjali Ruby [facility] Start: 02-25-2023 End: 02-26-2023 ambulatory Anjali Lyssa Flori Facility:[facility] Start: 02-25-2023 End: 02-25-2023 Patient encounter procedure Anjali Staffordmetz [facility] Start: 02-16-2023 End: 02-16-2023 ambulatory Sabino Cooper Facility:[facility] Start: 02-16-2023 End: 02-16-2023 ambulatory MD Sabino Cooper Work Phone: [facility] Work Phone: Start: 02-16-2023 End: 02-16-2023 Patient encounter procedure MD Sabino Cooper Work Phone: [facility] [place] Work Phone: Start: 02-15-2023 End: 02-16-2023 ambulatory POLITICAL CARTOONIST Yajaira Roque Facility:[facility] Start: 01-29-2023 [facility] Start: 01-29-2023 End: 01-29-2023 ambulatory MD Sabino Cooper Work Phone: [facility] Work Phone: Start: 01-29-2023 End: 01-29-2023 Patient encounter procedure MD Sabino Cooper Work Phone: [facility]-Sleep Lab Work Phone: Start: 01-27-2023 End: 01-27-2023 ambulatory Inez Henderson Facility:[id number] Start: 01-27-2023 End: 01-27-2023 ambulatory MD Sabino Cooper Work Phone: [facility] Work Phone: Start: 01-27-2023 End: 01-27-2023 Patient encounter procedure MD Sabino Cooper Work Phone: [facility]-Pacemaker Check Start: 01-12-2023 End: 01-13-2023 [facility]ulatory [facility] Start: 01-12-2023 End: 01-12-2023 Patient encounter procedure Anjali Ruby [facility] Start: 12-17-2022 End: 12-18-2022 ambulatory Anjali Ruby Facility:[facility] Start: 12-17-2022 End: 12-17-2022 Patient encounter procedure Anjali Ruby [facility] Start: 12-15-2022 End: 12-16-2022 ambulatory MD Sabino Cooper Facility:[facility] Start: 12-09-2022 End: 12-09-2022 ambulatory Sabino Cooper Facility:[facility] Start: 12-09-2022 End: 12-09-2022 ambulatory MD Sabino Cooper Work Phone: [facility] Work Phone: Start: 12-09-2022 End: 12-09-2022 Patient encounter procedure MD Sabion Cooper Work Phone: [facility]-Sleep Lab Work Phone: Start: 11-23-2022 End: 11-24-2022 ambulatory MD Sabino Cooper Facility:[facility] Start: 11-23-2022 End: 11-23-2022 Lab Drop off Sabino Cooper [facility] Start: 11-18-2022 End: 11-18-2022 ambulatory DANIEL PTAEL [facility] Start: 11-10-2022 End: 11-10-2022 ambulatory JOSE R ALEXANDER [facility] Start: 11-04-2022 End: 11-05-2022 ambulatory MD Sabino Cooper Facility:[facility] Start: 11-02-2022 End: 11-03-2022 ambulatory MD Sabino Cooper Facility:[facility] Start: 10-13-2022 Office outpatient visit 15 minutes Gisele Brunson [facility] Start: 10-13-2022 End: 10-13-2022 ambulatory Sabino Cooper Facility:[facility] Start: 10-13-2022 End: 10-13-2022 ambulatory MD Mg London Work Phone: [facility] Work Phone: Start: 10-13-2022 End: 10-13-2022 Patient encounter procedure MD Mg London Work Phone: [facility] Work Phone: Start: 10-05-2022 End: 10-06-2022 ambulatory MD Sabino Cooper Facility:[facility] JARE[facility] melendreze Start: 09-29-2022 End: 09-29-[address] EDY CARNEY Facility:[facility]1 Start: 09-24-2022 End: 09-25-[address] MG LONDON Facility:[facility]1 Start: 09-22-2022 End: 09-22-2022 Emergency department patient visit Gordy Sánchez Facility:[facility] Start: 09-22-2022 End: 09-22-2022 Emergency department patient visit Gordy Sánchez [facility] Start: 09-22-2022 Office outpatient visit 15 minutes Griselda Pennington [facility] Start: 09-22-2022 End: 09-22-2022 ambulatory NARENDRANATH LAKSHMIPATHY . [employer] Other Start: 08-27-2022 ambulatory MD Sabino Cooper [facility] ity:[facility] Start: 08-25-2022 End: 08-26-2022 ambulatory NARENDRANATH LAKSHMIPATHY . Facility:[facility]1 Start: 08-24-2022 End: 08-25-2022 ambulatory MD Sabino Cooper Facility:[facility] Start: 08-21-2022 ambulatory MD Sabino Cooper Facility :[facility] JAREK Will Start: 08-12-2022 ambulatory Facility:[id number] Start: 08-12-2022 End: 08-12-2022 ambulatory Missy Malou Facility:[facility] Start: 08-12-2022 End: 08-12-2022 ambulatory MD Mg London Work Phone: [facility] Work Phone: Start: 08-12-2022 End: 08-12-2022 Patient encounter procedure MD Mg London Work Phone: [facility] [place] Work Phone: Start: 08-11-2022 End: 08-11-2022 ambulatory BETTY BUTTS . Facility:[facility]1 Start: 07-29-2022 Office outpatient ne w 60 minutes Erwin Salazar [facility] Start: 07-29-2022 End: 07-29-2022 ambulatory Erwin Salazar Facility:[facility] Start: 07-29-2022 End: 07-29-2022 ambulatory MD Mg London Work Phone: [facility] Work Phone: Start: 07-29-2022 End: 07-29-2022 Patient encounter procedure MD Mg London Work Phone: [facility]Sleep Lab Work Phone: Start: 07-23-2022 End: 07-24-2022 ambulatory SONNY LAZO . Facility:H1 Start: 07-22-2022 End: 07-23-2022 ambulatory ALANNA Araiza WILLIAMELLA Facility:[facility]1 Start: 07-21-2022 ambulatory Facility:[id number] Start: 07-21-2022 End: 07-21-2022 ambulatory Missy Westfall Facility:[facility] Start: 07-21-2022 End: 07-21-2022 ambulatory MD Mg London Work Phone: [facility] Work Phone: Start: 07-21-2022 End: 07-21-2022 Patient encounter procedure MD Mg London Work Phone: [facility]-Pacemaker Check Start: 06-18-2022 End: 07-10-2022 ambulatory SUSANA COPPOLA Facility:[facility]1 Start: 06-16-2022 End: 06-17-2022 ambulatory SUSANAPAULA COPPOLA Facility:[facility] Start: 06-11-2022 End: 06-12-2022 ambulatory ALANNA HARDY Facility:[facility]1 Start: 05-26-2022 End: 05-27-2022 ambulatory Dequan GALICIA Facility:[facility] Start: 05-26-2022 End: 05-26-2022 Patient encounter procedure Dequan GALICIA [facility] Start: 04-27-2022 End: 04-28-2022 ambulatory MD Sabino Cooper Facility: [place] Start: 04-16-2022 End: 04-17-[address] ERWIN FALCON Facility:H1 Start: 03-19-[address] AMANDA CLANCY . Faci lity:H1 Start: 03-12-2022 End: 03-13-2022 ambulatory ALANNA HARDY Facility:[facility]1 Start: 03-10-2022 End: 03-11-2022 ambulatory DIEGO COYNE Facility:[facility] Start: 03-06-2022 End: 03-07-[address] DOCTOR GOFF Facility:[facility]1 Start: 12-25-2021 End: 12-26-2021 ambulatory SONNY Bermudez Facility:[facility]1 Start: 12-01-2021 End: 12-02-2021 [facility] Start: 11-29-2021 End: 11-29-2021 ambulatory Leti Garcia Other [employer] Other Start: 11-29-2021 Office outpatient visit 15 minutes Leti Garcia [facility] Start: 11-13-2021 End: 12-19-2021 ambulatory IFEOMA JARQUIN Facility:[facility]1 Start: 09-04-2020 End: 09-04-2020 Patient encounter procedure Param Cosme Work Phone: -[facility] [place] Start: 08-15-2020 End: 08-15-2020 Patient encounter procedure Param Cosme -Pacemaker Check Start: 08-30-2019 End: 08-31-2019 Patient encounter procedure MARGARET ARELLANO Facility:[facility] Procedures Date Procedure Procedure Detail Performing Clinician Start: 02-16-2023 MR abdomen wo con MD Sabino Cooper Work Phone: Start: 08-12-2022 MRI of cervical spine without contrast MD Mg London Work Phone: Start: 08-12-2022 XR pre/post mri xray MD Mg London Work Phone: Start: 08-12-2022 MRI of right ankle MD Mg London Work Phone: Start: 03-10-2022 PSA screening ALANNA HARDY Comment on above: Performed By: #### CBC #### [facility] [address] [place] [address] Dr. Ramsey Sanchez Start: 05-20-2020 Esophagogastroduodenoscopy Dequan Thapa Comment on above: 2 diminunative ulcers, gastritis, gastri c polyp, biopsy Angioplasty of blood vessel Dequan GALICIA Cardiac pacemaker procedure Dequan GALICIA Cataract (disorder) Gordy brannon Comment on above: bilateral Cholecystectomy Dequan MALDONADO Colonoscopy Dequan GALICIA Hernia repair Dequan GALICIA Prostatectomy Dequan GALICIA Tonsillectomy Dequan GALICIA Vasectomy Dequan GALICIA Plan of Treatment Date Care Activity Detail Author Start: 11-08-2023 ambulatory Ambulatory Facility:[facility]] Start: 05-31-2023 ambulatory Ambulatory Facility:[facility]3] Start: 05-25-2023 ambulatory Ambulatory Facility:[facility] Start: 01-15-2023 Covid-19 Vaccine () Covid-19 Vaccine () [facility] Start: 01-15-2023 Influenza vaccination [facility] Start: 11-12-2022 ambulatory Ambulatory Facility: Start: 05-17-2022 Advance Directive Discussion Advance Directive Discussion [facility] Start: 05-17-2022 Depression Assessment Depression Assessment [facility] Start: 09-04-2020 MRI of right ankle MR ankle RT wo con [facility] Start: 09-04-2020 XR pre/post mri xray XR pre/post mri xray [facility] Start: 01-30-2015 Pneumococcal Vaccine: 65+ (2 - PPSV23 or PCV20) Pneumococcal Vaccine: 65+ (2 - PPSV23 or PCV20) [facility] Start: 1999 RSV Vaccine (1 - 1-dose 60+ series) RSV Vaccine (1 - 1-dose 60+ series) [facility] Start: 10-29-1989 Shingrix Vaccine (1 of 2) Shingrix Vaccine (1 of 2) [facility] Start: 10-29-1984 Diabetes Screening Diabetes Screening [facility] Start: 10-29-1958 Urine microalbumin profile DTaP,Tdap,Td Vaccine (1 - Tdap) [facility] Immunizations Immunization Date Immunization Notes Care Provider Fa fercho 11-25-2021 SARS-CoV-2 mRNA (iilbrwydzve-dtbq-dgpdn se) vaccine Sabino Cooper [facility] 03-06-2021 SARS-CoV-2 (COVID-19 ) mRNA BNT-162b2 vax Sabino Cooper [facility] Comment on above: Result Comment: 2022: [id number] 02-18-2021 influenza virus vaccine, unspecified formulation Sabino Cooper [facility] 06-27-2020 SARS-CoV-2 (COVID-19 ) Ad26 vaccine, recombinant Dequan GALICIA [facility] [place] 06-27-2020 SARS-CoV-2 (COVID-19 ) mRNA BNT-162b2 vax Dequan GALICIA [facility] 06-06-2020 SARS-CoV-2 (COVID-19 ) Ad26 vaccine, recombinant Dequan GALICIA [facility] [place] 06-06-2020 SARS-CoV-2 (COVID-19 ) mRNA BNT-162b2 vax Dequan GALICIA [facility] 02-14-2020 influenza virus vaccine, unspecified formulation Sabino Cooper [facility] 01-22-2018 influenza, unspecifi ed formulation Sabino Cooper [facility] 01-30-2014 pneumococcal conjuga te vaccine, [address] [facility] Payers Date Payer Category Payer Medicare UHC MEDICARE UHC AARP OPTUM CARE HMO [id number] 2022-Present [id number] [place] [id number] O [id number] 2022 Medicare [id number] [id number] 2022 Private Health Insurance [id number] 2022 Self-pay [id number] 1959 Medicare [id number] 1959 Medicare [id number] 1959 Medicare [id number] 1959 Unknown [id number] 1939 Unknown [id number] 2.16.840.1.841432.3.579.2. 647 1939 Unknown [id number] 2.16.840.1.811035.3.579.2. 593 1939 Unknown [id number] 2.16.840.1.446819.3.579.2. 593 1939 Unknown [id number] 2.16.840.1.441784.3.579.2. 593 1939 Unknown [id number] 2.16.840.1.057735.3.579.2. 593 1939 Unknown [id number] 2.16.840.1.781756.3.579.2. 593 1939 Unknown [id number] 2.16.840.1.606181.3.579.2. 593 1939 Unknown [id number] 2.16.840.1.891076.3.579.2. 593 1939 Unknown [id number] 2.16.840.1.107118.3.579.2. 593 1939 Unknown [id number] 2.16.840.1.764300.3.579.2. 593 1939 Unknown [id number] 2.16.840.1.656475.3.579.2. 593 1939 Unknown [id number] 2.16.840.1.197297.3.579.2. 593 1939 Unknown [id number] 2.16.840.1.605788.3.579.2. 593 1939 Unknown [id number] 2.16.840.1.011550.3.579.2. 593 1939 Unknown [id number] 2.16.840.1.312285.3.579.2. 593 1939 Unknown [id number] 2.16.840.1.598805.3.579.2. 593 1939 Unknown [id number] 2.16.840.1.606338.3.579.2. 593 1939 Unknown [id number] 2.16.840.1.061193.3.579.2. 593 1939 Unknown [id number] 2.16.840.1.186454.3.579.2. 593 1939 Unknown [id number] 2.16.840.1.803105.3.579.2. 593 1939 Unknown [id number] 2.16.840.1.286907.3.579.2. 593 1939 Unknown [id number] 2.16.840.1.961169.3.579.2. 356 1939 Unknown [id number] 2.16.840.1.915475.3.579.2. 356 1939 Unknown [id number] 2.16.840.1.439835.3.579.2. 356 1939 Unknown [id number] 2.16.840.1.287001.3.579.2. 727 1939 Unknown [id number] 2.16.840.1.769409.3.579.2. 727 1939 Unknown [id number] 2.16.840.1.946336.3.579.2. 727 1939 Unknown [id number] 2.16.840.1.935842.3.579.2. 727 1939 Unknown [id number] 2.16.840.1.989989.3.579.2. 727 1939 Unknown [id number] 2.16.840.1.975820.3.579.2. 727 1939 Unknown [id number] 2.16.840.1.138971.3.579.2. 727 1939 Unknown [id number] 2.16.840.1.868933.3.579.2. 727 1939 Unknown [id number] 2.16.840.1.229630.3.579.2. 72 1939 Unknown [id number] 2.16.840.1.308831.3.579.2. 72 1939 Unknown [id number] 2.16.840.1.968676.3.579.2. 72 1939 Unknown [id number] 2.16.840.1.336981.3.579.2. 72 1939 Unknown [id number] 2.16.840.1.164902.3.579.2. 1939 Unknown [id number] 2.16.840.1.179508.3.579.2. 1939 Unknown [id number] 2.16.840.1.251153.3.579.2. 72 1939 Unknown [id number] 2.16.840.1.062121.3.579.2. 1939 Unknown [id number] 2.16.840.1.056219.3.579.2. 72 1939 Unknown [id number] 2.16.840.1.384332.3.579.2. 1939 Unknown [id number] 2.16.840.1.399180.3.579.2. 72 1939 Unknown [id number] 2.16.840.1.527579.3.579.2. 1939 Unknown [id number] 2.16.840.1.844368.3.579.2. 727 Unknown [id number] 2.16.840.1.624488.3.579.2. 531 Unknown [id number] 2.16.840.1.468504.3.579.2. 531 Unknown [id number] 2.16.840.1.913033.3.579.2. 531 Unknown [id number] 2.16.840.1.895090.3.579.2. 531 Unknown [id number] 2.16.840.1.013252.3.579.2. 531 Unknown [id number] 2.16.840.1.952544.3.579.2. 531 Unknown [id number] 2.16.840.1.614563.3.579.2. 531 Unknown [id number] 2.16.840.1.668851.3.579.2. 531 Unknown [id number] 2.16.840.1.698717.3.579.2. 531 Social History Date Type Detail Facility Tobacco smoking stat [facility] Unknown if ever smoked [facility] Start: 1940 Sex Assigned At Male F [facility] Start: 04-01-2023 Sex Assigned At F [facility] Start: 04-27-2022 End: 04-01-2023 Tobacco smoking status Ex-smoker (finding) [facility] Comment on above: former smoker quit a t age 41, 1 PPD Tobacco smoking status Never [facility] Comment on above: former smoker quit a t age 41, 1 PPD History of tobacco use Current smoker [facility] History of tobacco use Cigarette Smoker C [facility] Start: 04-01-2023 Tobacco use and exposure Smokeless tobacco non-user [facility] Start: 04-01-2023 History of Social function [facility] Start: 1940 Sex Assigned At Not on file C [facility] Medical Equipment Procedure Code Equipment Code Equipment Origin al Text Equipment Identifier Dates See Instructions , one touch ultra test strips test sugars once a day Start: 08-24-2022 See Instructions , one touch ultra lancets Use to test sugars once a day Start: 08-24-2022 See Instructions , one touch ultra test strips test sugars once a day Start: 08-24-2022 See Instructions , one touch ultra lancets Use to test sugars once a day Start: 08-24-2022 See Instructions , one touch ultra test strips test sugars once a day Start: 08-24-2022 See Instructions , one touch ultra lancets Use to test sugars once a day Start: 08-24-2022 See Instructions , one touch ultra test strips test sugars once a day Start: 08-24-2022 See Instructions , one touch ultra lancets Use to test sugars once a day Start: 08-24-2022 See Instructions , one touch ultra test strips test sugars once a day Start: 08-24-2022 See Instructions , one touch ultra lancets Use to test sugars once a day Start: 08-24-2022 See Instructions , one touch ultra test strips test sugars once a day Start: 08-24-2022 See Instructions , one touch ultra lancets Use to test sugars once a day Start: 08-24-2022 See Instructions , one touch ultra test strips test sugars once a day Start: 08-24-2022 See Instructions , one touch ultra lancets Use to test sugars once a day Start: 08-24-2022 Goals Date Patient Goal Desired Activity /State Functional Status Date Assessment Result Facility 03-10-2023 Functional Status N/A [facility] 02-25-2023 Functional Status N/A [facility] 01-12-2023 Functional Status N/A [facility] 09-22-2022 Functional Status N/A [facility] 05-19-2022 Functional Status N/A [facility] Clinical Notes 11-29-2021 to 04-16-2023 Telephone Encounter - Lolly Dumont - 04/05/2023 9:44 AM Debby Fernandez MA - 04/01/2023 1:13 PM Vaishali Christian MD - 04/01/2023 1:00 PM EST Note Date & Type Note Facility 04-16-2023 Note [id number] [facility] 04-15-2023 Note Endoscopy Care After Procedure Please read the instructions outlined below and refer to this sheet in the next few weeks. These discharge instructions provide you with general information on caring for yourself after you leave the hospital. Your doctor may also give you specific instructions. While your treatment has been planned according to the most current medical practices available, unavoidable complications occasionally occur. If you have any problems or questions after discharge, please call your doctor. ACTIVITY ? You may resume your regular activity but move at a slower pace for the next 24 hours. ? Take frequent rest periods for the next 24 hours. ? Walking will help expel (get rid of) the air and reduce the bloated feeling in your abdomen. ? No driving for 24 hours (because of the anesthesia (medicine) used during the test). ? You may shower. ? Do not sign any important legal documents or operate any machinery for 24 hours (because of the anesthesia used during the test). NUTRITION ? Drink plenty of fluids. ? You may resume your normal diet. ? Begin with a light meal and progress to your normal diet. ? Avoid alcoholic beverages for 24 hours or as instructed by your caregiver. MEDICATIONS ? You may resume your normal medications unless your caregiver tells you otherwise. WHAT YOU CAN EXPECT TODAY ? You may experience abdominal discomfort such as a feeling of fullness or ?gas? pains. FOLLOW-UP ? Your doctor will discuss the results of your test with you. seek immediate medical attention if any of the following occur: ? Excessive nausea (feeling sick to your stomach) and/or vomiting. ? Severe abdominal pain and distention (swelling). ? Trouble swallowing. ? Temperature over 100 F (37.8? C). ? Rectal bleeding or vomiting of blood. Document Released: 12/15/2004 Document Re-Released: 10/25/2006 ExitCare? Patient Information ?2009 [employer]. Gastroenterology Upper Endoscopy, Adult, Care After After the procedure, it is common to have a sore throat. It is also common to have: ? Mild stomach pain or discomfort. ? Bloating. ? Nausea. Follow these instructions at home: The instructions below may help you care for yourself at home. Your health care provider may give you more instructions. If you have questions, ask your health care provider. ? If you were given a sedative during the procedure, it can affect you for several hours. Do not drive or operate machinery until your health care provider says that it is safe. ? If you will be going home right after the procedure, plan to have a responsible adult: ? Take you home from the hospital or clinic. You will not be allowed to drive. ? Care for you for the time you are told. ? Follow instructions from your health care provider about what you may eat and drink. ? Return to your normal activities as told by your health care provider. Ask your health care provider what activities are safe for you. ? Take xydk-gcj-xfgplfk and prescription medicines only as told by your health care provider. Contact a health care provider if you: ? Have a sore throat that lasts longer than one day. ? Have trouble swallowing. ? Have a fever. Get help right away if you: ? Vomit blood or your vomit looks like coffee grounds. ? Have bloody, black, or tarry stools. ? Have a very bad sore throat or you cannot swallow. ? Have difficulty breathing or very bad pain in your chest or abdomen. These symptoms may be an emergency. Get help right away. Call 911. ? Do not wait to see if the symptoms will go away. ? Do not drive yourself to the hospital. Summary ? After the procedure, it is common to have a sore throat, mild stomach discomfort, bloating, and nausea. ? If you were given a sedative during the procedure, it can affect you for several hours. Do not drive until your health care provider says that it is safe. ? Follow instructions from your health care provider about what you may eat and drink. ? Return to your normal activities as told by your health care provider. This information is not intended to replace advice given to you by your health care provider. Make sure you discuss any questions you have with your health care provider. Document Revised: 08/12/2022 Document Reviewed: 08/12/2022 [employer] Patient Education ? 2022 Vocation. [facility] 04-14-2023 Note [facility] Cardiology Clinic Note Chief Complaint: Patient here for 6 mo follow up CAD, hyperlipidemia, and hypertension. Due for routine device interrogation in May 2023. He is scheduled for EGD tomorrow at [facility]. Doesn't think he's had recent labs or testing. Denies chest pain, SOB, palpitations, and lightheadedness. Still does phase 3 cardiac rehab at [facility] 3 times a week. HPI: Jeremie Bennett is a 82 y.o. male History of coronary artery disease, dyslipidemia, and pacemaker here in routine follow-up Doing well. No significant symptoms. Cardiology ROS: Review of Systems Constitutional: Positive for malaise/fatigue. Cardiovascular: Positive for leg swelling (intermittent). Musculoskeletal: Positive for arthritis and back pain. Gastrointestinal: Positive for nausea. All other systems reviewed and are negative. Past Medical History He has a past medical history of Bradycardia, Coronary artery disease, Heart valve disease, and VT (ventricular tachycardia) (CMS/HCC). Surgical History He has a past surgical history that includes Ablation of dysrhythmic focus; Cardiac catheterization; and Insert / replace / remove pacemaker. Social History He reports that he quit smoking about 39 years ago. His smoking use included cigarettes. He has never used smokeless tobacco. He reports current alcohol use. He reports that he does not use drugs. Family History Family History Problem Relation Name Age of Onset Coronary artery disease Mother Kidney disease Mother Heart failure Mother Allergies Adhesive tape-silicones and Niacin Medications Current Outpatient Medications: amLODIPine (Norvasc) 5 mg tablet, Take 1 tablet (5 mg) by mouth in the morning., Disp: 90 tablet, Rfl: 3 aspirin 81 mg EC tablet, Take 1 tablet every day by oral route., Disp: , Rfl: clopidogrel (Plavix) 75 mg tablet, TAKE 1 TABLET BY MOUTH IN THE MORNING, Disp: 100 tablet, Rfl: 3 dorzolamide (Trusopt) 2 % ophthalmic solution, every 8 (eight) hours., Disp: , Rfl: furosemide (Lasix) 20 mg tablet, Take 1 tablet every day by oral route., Disp: , Rfl: gabapentin (Neurontin) 600 mg tablet, Take 1 tablet by mouth in the morning, at noon, and at bedtime., Disp: , Rfl: irbesartan (Avapro) 300 mg tablet, Take 1 tablet (300 mg) by mouth in the morning., Disp: 90 tablet, Rfl: 3 isosorbide mononitrate ER (Imdur) 30 mg 24 hr tablet, Take 1 tablet (30 mg) by mouth in the morning., Disp: 90 tablet, Rfl: 3 latanoprost (Xalatan) 0.005 % ophthalmic solution, PLACE 1 DROP INTO BOTH EYES AT BEDTIME, Disp: , Rfl: loperamide (Imodium) 2 mg capsule, every 6 (six) hours., Disp: , Rfl: metFORMIN XR (Glucophage-XR) 500 mg 24 hr tablet, Take 500 mg by mouth in the morning and at bedtime., Disp: , Rfl: omeprazole (PriLOSEC) [address] capsule, Take 40 mg by mouth before breakfast. Do not crush or chew., Disp: , Rfl: rosuvastatin (Crestor) 10 mg tablet, Take 1 tablet by mouth in the morning., Disp: , Rfl: sotalol (Betapace) 80 mg tablet, Take 0.5 tablets (40 mg) by mouth in the morning and at bedtime., Disp: 90 tablet, Rfl: 3 tiZANidine (Zanaflex) 4 mg tablet, TAKE 1/2 TO 1 TABLET BY MOUTH EVERY DAY AT NIGHT, Disp: , Rfl: Last Recorded Vitals BP 122/76 (BP Location: Left arm, Patient Position: Sitting) Pulse 65 Ht 1.651 m (5' 5 ) Wt 78 kg (172 lb) SpO2 95% BMI 28.62 kg/m??? Physical Examination: GENERAL: alert and oriented x3, well developed, in no acute distress. HEAD: atraumatic, normocephalic. EYES: BREANN, EOMI. NECK: trachea midline, no JVD present, no carotid bruits present. CARDIAC: S1, S2 present. RRR. No murmur, rubs, or gallops. RESPIRATORY: CTAB, no increased effort of breathing, no rales, rhonchi, or wheezing. ABDOMEN: soft, nontender, nondistended. EXTREMITIES: no lower extremity edema, peripheral pulses are 2+ bilaterally. No rash/skin discoloration present. NEURO: strength/sensation equal and symmetric in bilateral upper and lower extremities. PSYCH: appropriate mood, affect, and judgement. Investigations: Cardiac catheterization 08/2019 Final impressions: 1. Severe in-stent restenosis of the second obtuse marginal branch of the left circumflex successfully treated by balloon angioplasty and Synergy drug-eluting stent placement 2. Severe de cris stenosis of the first obtuse marginal branch successfully treated by direct Synergy drug-eluting stent placement 3. Moderate in-stent restenosis of a small, codominant right coronary artery 4. Mild to moderate disease of the left anterior descending coronary artery 5. Low normal global left ventricular systolic function by noninvasive imaging Recommendations: Elective surgery should be deferred for a minimum of 3 to 6 months depending on urgency; discussions regarding discontinuation of dual antiplatelet therapy will be held as an outpatient. Echocardiogram 02/07/2020 Global left ventricular systolic function is normal. Lisette (more content not included)... [facility] 04-05-2023 Miscellaneous Notes Received records from [facility]. Reports for imaging listed below scanned. Images pushed through 09/27/2019 US Right Upper Quad 03/31/2020 CT ABD/PEL US Right Upper Quad [facility] MRI Abdomen 02/22/2023 Soft Tissue Head & Neck Received many misc. labs & ER reports Operative Note & pathology from Laparoscopic Cholecystectomy Patient seen 04/01, please review, thank you! documented in this encounter [facility] 04-01-2023 Note HNO ID: [id number] Author: Vaishali Pringle MD Service: ? Author Type: Physician Type: Progress Notes Filed: 04/05/2023 1:34 PM Note Text: PANCREATIC CYST INITIAL CONSULT PATIENT NAME: Jeremie Bennett REASON FOR CONSULT: Cyst in Pancreas REQUESTING PHYSICIAN: Anjali Ruby CNP DATE of SERVICE: 04/01/2023 TIME of SERVICE: 11:38 AM PCP: No primary care provider on file. This consult was requested by No ref. provider found for evaluation of pancreatic cyst(s) My final recommendations will be communicated to the requesting health care provider by way of the shared medical record or postal services. Jeremie Bennett is a 82 year old years old, male who presents with pancreatic cysts . Cysts were incidentally discovered during workup for: Abdominal process: Abdominal symptoms that led to cyst discovery include: none . Has had ongoing intermittent RUQ pain, dull ache. Not in relation to certain foods. No nausea or vomiting. Has had urgency with bowel movements and reports light colored stool. Had colonoscopy prior to 2019 which was normal. Symptoms attributable to cyst: abdominal pain- RUQ, early satiety , dyspepsia , diarrhea, steatorrhea EGD on 04/15 to come Work up: 1. NORMAL No normal scan. 2. First detected: MRI: 02/16/2023 LOCATION: Head: Yes, largest size: 3. Total number of cysts: 1 Body/Tail: Yes, largest size: 8mm. Total number of cysts: 1 SEPTATIONS : No THICK WALLED : No CENTRAL CALCIFICATIONS: No PERIPHERAL CALCIFICATIONS : No MASS COMPONENT: No MURAL NODULE: No COMMUNICATION WITH MPD: Yes MPD: Head: <5 mm Body/Tail: <5 mm Outside Imaging: NO 3. Current image findings: As above EUS No Serum Labs: CEA: Not Done CA19-9: Not Done CHROMOGRANIN A: Not Done PANCREATIC POLYPEPTIDE: Not Done GASTRIN: Not Done PAST MEDICAL HISTORY Active Ambulatory Problems No Active Ambulatory Problems Resolved Ambulatory Problems No Resolved Ambulatory Problems No Additional Past Medical History Pancreatitis: no Colon Cancer: no Prostate cancer: resected Ventricular tachycardia, on plavix, amlodipine CAD, 5 stents Fatty liver T2DM on metformin PAST SURGICAL HISTORY No past surgical history on file. Cholecystectomy in 2019 SOCIAL HISTORY Current tobacco use? NO Current alcohol use? NO FAMILY HISTORY No family history on file. Pancreatitis: no Pancreatic Cancer: yes, cousin Men: no Colon Cancer: no Review of Systems: The remainder of the review of systems is negative. PHYSICAL EXAM: BP 109/66 Pulse 70 Temp 36.2 ?C (97.1 ?F) (Temporal) Wt 75.8 kg (167 lb) SpO2 97% General appearance: Well appearing, alert, in no acute distress, well-hydrated, well nourished. Skin: Skin color, texture, turgor normal, no suspicious rashes or lesions Head: Normocephalic, no masses, lesions, tenderness or abnormalities Eyes: Anicteric sclera. Pupils are equally round and reactive to light. Extraocular movements are intact. Extremities: No deformities, edema, skin discoloration, clubbing or cyanosis. Good capillary refill. Musculoskeletal: No joint swelling, deformity, or tenderness Peripheral pulses: Normal Neuro: Gait normal. Reflexes normal and symmetric. Sensation grossly intact. 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 Patient was worked up for right upper quadrant abdominal pain. He does have a previous history of an uncomplicated cholecystectomy. He underwent imaging followed by an MRI pancreas that noted the pancreatic cyst and he subsequently referred to me. He does not have any history related to his pancreas whatsoever. No history of any malignancies except prostate cancer. He does not have any history of pancreatitis. He does not smoke and he does not consume significant amounts of alcohol. His physical examination is unremarkable I have reviewed his MRI. 2 pancreatic cysts are visualized. 1 in the head of the pancreas which appears to be around 3 mm in size and another 1 in the pancreatic body tail which is approximately 8 mm in size. There is no pancreatic ductal dilatation. There is no complexity within the cyst. Patient with small sidebranch IPMN and no other worrisome features. He additionally does not have any symptoms related to these. At this point have recommended another MRI pancreas in 1 year. No further intervention is required. It is unlikely that his pain is related to these pancreatic cysts. He will continue work-up with his GI regarding that. He is scheduled for an EGD in the near future. MRI pancreas 1 year We will get an over read of his existing scan This office note will be sent to the referring provider via electronic medical record and US mail. Vaishali Pringle MD Medical De (more content not included)... [facility] 04-01-2023 Nurse Note What is the reason for your visit today? Consult for PE Who is your referring physician? Anjali Ruby CNP Are you having poor oral intake? NO Have you had unintentional weight loss of 15 lbs/7 Kg in the last 3-6 months? NO Bowels: off and on Wound: Temperature: No Drains: No documented in this encounter [facility] 04-01-2023 History of Presen t illness Narrative PANCREATIC CYST INITIAL CONSULT PATIENT NAME: Jeremie Bennett REASON FOR CONSULT: Cyst in Pancreas REQUESTING PHYSICIAN: Anjali Ruby CNP DATE of SERVICE: 04/01/2023 TIME of SERVICE: 11:38 AM PCP: No primary care provider on file. This consult was requested by No ref. provider found for evaluation of pancreatic cyst(s) My final recommendations will be communicated to the requesting health care provider by way of the shared medical record or Ibelemal services. Jeremie Bennett is a 82 year old years old, male who presents with pancreatic cysts . Cysts were incidentally discovered during workup for: Abdominal process: Abdominal symptoms that led to cyst discovery include: none . Has had ongoing intermittent RUQ pain, dull ache. Not in relation to certain foods. No nausea or vomiting. Has had urgency with bowel movements and reports light colored stool. Had colonoscopy prior to 2019 which was normal. Symptoms attributable to cyst: abdominal pain- RUQ, early satiety , dyspepsia , diarrhea, steatorrhea EGD on 04/15 to come Work up: 1. NORMAL No normal scan. 2. First detected: MRI: 02/16/2023 LOCATION: Head: Yes, largest size: 3. Total number of cysts: 1 Body/Tail: Yes, largest size: 8mm. Total number of cysts: 1 SEPTATIONS : No THICK WALLED : No CENTRAL CALCIFICATIONS: No PERIPHERAL CALCIFICATIONS : No MASS COMPONENT: No MURAL NODULE: No COMMUNICATION WITH MPD: Yes MPD: Head: <5 mm Body/Tail: <5 mm Outside Imaging: NO 3. Current image findings: As above EUS No Serum Labs: CEA: Not Done CA19-9: Not Done CHROMOGRANIN A: Not Done PANCREATIC POLYPEPTIDE: Not Done GASTRIN: Not Done PAST MEDICAL HISTORY Active Ambulatory Problems No Active Ambulatory Problems Resolved Ambulatory Problems No Resolved Ambulatory Problems No Additional Past Medical History Pancreatitis: no Colon Cancer: no Prostate cancer: resected Ventricular tachycardia, on plavix, amlodipine CAD, 5 stents Fatty liver T2DM on metformin PAST SURGICAL HISTORY No past surgical history on file. Cholecystectomy in 2019 SOCIAL HISTORY Current tobacco use? NO Current alcohol use? NO FAMILY HISTORY No family history on file. Pancreatitis: no Pancreatic Cancer: yes, cousin Men: no Colon Cancer: no Review of Systems: The remainder of the review of systems is negative. PHYSICAL EXAM: BP 109/66 Pulse 70 Temp 36.2 C (97.1 F) (Temporal) Wt 75.8 kg (167 lb) SpO2 97% General appearance: Well appearing, alert, in no acute distress, well-hydrated, well nourished. Skin: Skin color, texture, turgor normal, no suspicious rashes or lesions Head: Normocephalic, no masses, lesions, tenderness or abnormalities Eyes: Anicteric sclera. Pupils are equally round and reactive to light. Extraocular movements are intact. Extremities: No deformities, edema, skin discoloration, clubbing or cyanosis. Good capillary refill. Musculoskeletal: No joint swelling, deformity, or tenderness Peripheral pulses: Normal Neuro: Gait normal. Reflexes normal and symmetric. Sensation grossly intact. 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 Patient was worked up for right upper quadrant abdominal pain. He does have a previous history of an uncomplicated cholecystectomy. He underwent imaging followed by an MRI pancreas that noted the pancreatic cyst and he subsequently referred to me. He does not have any history related to his pancreas whatsoever. No history of any malignancies except prostate cancer. He does not have any history of pancreatitis. He does not smoke and he does not consume significant amounts of alcohol. His physical examination is unremarkable I have reviewed his MRI. 2 pancreatic cysts are visualized. 1 in the head of the pancreas which appears to be around 3 mm in size and another 1 in the pancreatic body tail which is approximately 8 mm in size. There is no pancreatic ductal dilatation. There is no complexity within the cyst. Patient with small sidebranch IPMN and no other worrisome features. He additionally does not have any symptoms related to these. At this point have recommended another MRI pancreas in 1 year. No further intervention is required. It is unlikely that his pain is related to these pancreatic cysts. He will continue work-up with his GI regarding that. He is scheduled for an EGD in the near future. MRI pancreas 1 year We will get an over read of his existing scan This office note will be sent to the referring provider via electronic medical record and [place] mail. Vaishali Pringle MD Medical Decision Making: Problems: Moderate: New problem with uncertain prognosis Data: Unique test result(s) reviewed: 1 Unique test(s) ordered: 1 Risk: High: High risk from testing/treatment and Decision on elective major surgery w/ risk factors Medical Decision Making Level: 4 - Moderate documented in this encounter [facility] 03-29-2023 Note MD Caterina Angelo MA The patient can hold Plavix for 5 days prior to the procedure and resume once acceptable. He must be on aspirin 81 mg daily while off Plavix. Thank you Done and faxed back to Dr. Gio Daigle. [facility] 03-10-2023 Hospital Discharg e instructions Patient Education 03/10/2023 09:19:04 Abdominal Pain, Adult Abdominal Pain, Adult Pain in the abdomen (abdominal pain) can be caused by many things. Often, abdominal pain is not serious and it gets better with no treatment or by being treated at home. However, sometimes abdominal pain is serious. Your health care provider will ask questions about your medical history and do a physical exam to try to determine the cause of your abdominal pain. Follow these instructions at home: Medicines Take [id number]-ylfbxtw and prescription medicines only as told by your health care provider. Do not take a laxative unless told by your health care provider. General instructions Watch your condition for any changes. Drink enough fluid to keep your urine pale yellow. Keep all follow-up visits as told by your health care provider. This is important. Contact a health care provider if: Your abdominal pain changes or gets worse. You are not hungry or you lose weight without trying. You are constipated or have diarrhea for more than 2 3 days. You have pain when you urinate or have a bowel movement. Your abdominal pain wakes you up at night. Your pain gets worse with meals, after eating, or with certain foods. You are vomiting and cannot keep anything down. You have a fever. You have blood in your urine. Get help right away if: Your pain does not go away as soon as your health care provider told you to expect. You cannot stop vomiting. Your pain is only in areas of the abdomen, such as the right side or the left lower portion of the abdomen. Pain on the right side could be caused by appendicitis. You have bloody or black stools, or stools that look like tar. You have severe pain, cramping, or bloating in your abdomen. You have signs of dehydration, such as: ?Dark urine, very little urine, or no urine. ?Cracked lips. ?Dry mouth. ?Sunken eyes. ?Sleepiness. ?Weakness. You have trouble breathing or chest pain. Summary Often, abdominal pain is not serious and it gets better with no treatment or by being treated at home. However, sometimes abdominal pain is serious. Watch your condition for any changes. Take rmkp-qve-rxmotak and prescription medicines only as told by your health care provider. Contact a health care provider if your abdominal pain changes or gets worse. Get help right away if you have severe pain, cramping, or bloating in your abdomen. This information is not intended to replace advice given to you by your health care provider. Make sure you discuss any questions you have with your health care provider. Document Revised: 06/21/2020 Document Reviewed: 09/11/2019 [employer] Patient Education 2022 Vocation. Follow Up Care 03/09/2023 09:58:32 With:Anjali Ruby CNP Address: When:1 to 2 weeks Comments:Following EGD. [facility] 02-25-2023 Hospital Discharg e instructions Patient Education 02/25/2023 14:01:36 Dysphagia Dysphagia Dysphagia is trouble swallowing. This condition occurs when solids and liquids stick in a person's throat on the way down to the stomach, or when food takes longer to get to the stomach than usual. You may have problems swallowing food, liquids, or both. You may also have pain while trying to swallow. It may take you more time and effort to swallow something. What are the causes? This condition may be caused by: Muscle problems. These may make it difficult for you to move food and liquids through the esophagus, which is the tube that connects your mouth to your stomach. Blockages. You may have ulcers, scar tissue, or inflammation that blocks the normal passage of food and liquids. Causes of these problems include: ?Acid reflux from your stomach into your esophagus (gastroesophageal reflux). ?Infections. ?Radiation treatment for cancer. ?Medicines taken without enough fluids to wash them down into your stomach. Stroke. This can affect the nerves and make it difficult to swallow. Nerve problems. These prevent signals from being sent to the muscles of your esophagus to squeeze (contract) and move what you swallow down to your stomach. Globus pharyngeus. This is a common problem that involves a feeling like something is stuck in your throat or a sense of trouble with swallowing, even though nothing is wrong with the swallowing passages. Certain conditions, such as cerebral palsy or Parkinson's disease. What are the signs or symptoms? Common symptoms of this condition include: A feeling that solids or liquids are stuck in your throat on the way down to the stomach. Pain while swallowing. Coughing or gagging while trying to swallow. Other symptoms include: Food moving back from your stomach to your mouth (regurgitation). Noises coming from your throat. Chest discomfort when swallowing. A feeling of fullness when swallowing. Drooling, especially when the throat is blocked. Heartburn. How is this diagnosed? This condition may be diagnosed by: Barium swallow X-ray. In this test, you will swallow a white liquid that sticks to the inside of your esophagus. X-ray images are then taken. Endoscopy. In this test, a flexible telescope is inserted down your throat to look at your esophagus and your stomach. CT scans or an MRI. How is this treated? Treatment for dysphagia depends on the cause of this condition: If the dysphagia is caused by acid reflux or infection, medicines may be used. These may include antibiotics or heartburn medicines. If the dysphagia is caused by problems with the muscles, swallowing therapy may be used to help you strengthen your swallowing muscles. You may have to do specific exercises to strengthen the muscles or stretch them. If the dysphagia is caused by a blockage or mass, procedures to remove the blockage may be done. You may need surgery and a feeding tube. You may need to make diet changes. Ask your health care provider for specific instructions. Follow these instructions at home: Medicines Take pkih-fdq-gpautmx and prescription medicines only as told by your health care provider. If you were prescribed an antibiotic medicine, take it as told by your health care provider. Do not stop taking the antibiotic even if you start to feel better. Eating and drinking Make any diet changes as told by your health care provider. Work with a diet and livestock nutritionist (dietitian) to create an eating plan that will help you get the nutrients you need in order to stay healthy. Eat soft foods that are easier to swallow. Cut your food into small pieces and eat slowly. Take small bites. Eat and drink only when you are sitting upright. Do not drink alcohol or caffeine. If you need help quitting, ask your health care provider. General instructions Check your weight every day to make sure you are not losing weight. Do not use any products that contain nicotine or tobacco. These products include cigarettes, chewing tobacco, and vaping devices, such as e-cigarettes. If you need help quitting, ask your health care provider. Keep all follow-up visits. This is important. Contact a health care provider if: You lose weight because you cannot swallow. You cough when you drink liquids. You cough up partially digested food. Get help right away if: You cannot swallow your saliva. You have shortness of breath, a fever, or both. Your voice is hoarse and you have trouble swallowing. These symptoms may represent a serious problem that is an emergency. Do not wait to see if the symptoms will go away. Get medical help right away. Call your local emergency services (911 in the [place] Do not drive yourself to the hospital. Summary Dysphagia is trouble swallowing. This condition occurs when solids and liquids stick in a person's throat on the way down to the stomach. You may cough or gag while trying to swallow. Dysphagia has many possible causes. Treatment for dysphagia depends on the cause of the condition. Keep all follow-up visits. This is important. This information is not intended to replace advice given to you by your health care provider. Make sure you discuss any questions you have with your health care provider. Document Revised: 12/21/2020 Document Reviewed: 12/21/2020 [employer] Patient Education 2022 [employer]. Follow Up Care 02/22/2023 16:17:47 With:Anjali Ruby CNP Address: When:3 months [facility] 01-29-2023 Evaluation note Encounter Date Diagnosis Assessment Notes Jan, Obstructive sleep apnea (ICD-10 - G47.33) Fortunately, the patient is using and benefiting from treatment. Download was reviewed with patient, His AHI is slightly elevated at 8.3, however a majority of those apneas register as centrals, however those are likely artifact according to his recent sleep study. We will adjust his pressures to the recommended optimal pressure settings per the recent sleep study results, and I encouraged pt to wear the Talia Full mask that he was given during that study and we will re-evaluate his ISIDRO in 3 months. A prescription was sent to the [employer] for new supplies throughout the year. He was encouraged to continue to use his machine nightly, throughout the entire night as this does provide clinical benefit. Call if problems. 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 There is periodic breathing documented on downloads with some central apneas, but as he is clinically doing well and as we have objective polysomnography data. We will not make changes and we will continue to monitor. Jan, Other Call if any questions or problems. Patient is advised to work on healthy diet choices and appropriate servings, weight control, regular exercise as directed, and reduce fat intake. Use machine regularly, and keep up with mask changes as needed. Call if problems with mask toleration, increased sleepiness, or poor response to treatment. . [employer] Other 08-29-2023 Hospital Discharge instructions Patient Education 01/12/2023 08:55:44 Colonoscopy, Adult Colonoscopy, Adult A colonoscopy is a procedure to look at the entire large intestine. This procedure is done using a long, thin, flexible tube that has a camera on the end. You may have a colonoscopy: As a part of normal colorectal screening. If you have certain symptoms, such as: ?A low number of red blood cells in your blood (anemia). ?Diarrhea that does not go away. ?Pain in your abdomen. ?Blood in your stool. A colonoscopy can help screen for and diagnose medical problems, including: An abnormal growth of cells or tissue (tumor). Abnormal growths within the lining of your intestine (polyps). Inflammation. Areas of bleeding. Tell your health care provider about: Any allergies you have. All medicines you are taking, including vitamins, herbs, eye drops, creams, and dzrk-jtl-mamtkua medicines. Any problems you or family members have had with anesthetic medicines. Any bleeding problems you have. Any surgeries you have had. Any medical conditions you have. Any problems you have had with having bowel movements. Whether you are or may be . What are the risks? Generally, this is a safe procedure. However, problems may occur, including: Bleeding. Damage to your intestine. Allergic reactions to medicines given during the procedure. Infection. This is rare. What happens before the procedure? Eating and drinking restrictions Follow instructions from your health care provider about eating or drinking restrictions, which mayinclude: A few days before the procedure: ?Follow a low-fiber diet. ?Avoid nuts, seeds, dried fruit, raw fruits, and vegetables. 1 3 days before the procedure: ?Eat only gelatin dessert or ice pops. ?Drink only clear liquids, such as water, clear juice, clear broth or bouillon, black coffee or tea, or clear soft drinks or sports drinks. ?Avoid liquids that contain red or purple dye. The day of the procedure: ?Do not eat solid foods. You may continue to drink clear liquids until up to 2 hours before the procedure. ?Do not eat or drink anything starting 2 hours before the procedure, or within the time period thatyour health care provider recommends. Bowel prep If you were prescribed a bowel prep to take by mouth (orally) to clean out your colon: Take it as told by your health care provider. Starting the day before your procedure, you will needto drink a large amount of liquid medicine. The liquid will cause you to have many bowel movements of loose stool until your stool becomes almost clear or light green. If your skin or the opening between the buttocks (anus) gets irritated from diarrhea, you may relieve the irritation using: ?Wipes with medicine in them, such as adult wet wipes with aloe and vitamin E. ?A product to soothe skin, such as petroleum jelly. If you vomit while drinking the bowel prep: ?Take a break for up to 60 minutes. ?Begin the bowel prep again. ?Call your health care provider if you keep vomiting or you cannot take the bowel prep without vomiting. To clean out your colon, you may also be given: ?Laxative medicines. These help you have a bowel movement. ?Instructions for enema use. An enema is liquid medicine injected into your rectum. Medicines Ask your health care provider about: Changing or stopping your regular medicines or supplements. This is especially important if you aretaking iron supplements, diabetes medicines, or blood thinners. Taking medicines such as aspirin and ibuprofen. These medicines can thin your blood. Do not take these medicines unless your health care provider tells you to take them. Taking cbnt-byx-funjqwy medicines, vitamins, herbs, and supplements. General instructions Ask your health care provider what steps will be taken to help prevent infection. These may includewashing skin with a germ-killing soap. If you will be going home right after the procedure, plan to have a responsible adult: ?Take you home from the hospital or clinic. You will not be allowed to drive. ? Care for you for the time you are told. What happens during the procedure? An IV will be inserted into one of your veins. You will be given a medicine to make you fall asleep (general anesthetic). You will lie on your side with your knees bent. A lubricant will be put on the tube. Then the tube will be: ?Inserted into your anus. ?Gently eased through all parts of your large intestine. Air will be sent into your colon to keep it open. This may cause some pressure or cramping. Images will be taken with the camera and will appear on a screen. A small tissue sample may be removed to be looked at under a microscope (biopsy). The tissue may besent to a lab for testing if any signs of problems are found. If small polyps are found, they may be removed and checked for cancer cells. When the procedure is finished, the tube will be removed. The procedure may vary among health care providers and hospitals. What happens after the procedure? Your blood pressure, heart rate, breathing rate, and blood oxygen level will be monitored until youleave the hospital or clinic. You may have a small amount of blood in your stool. You may pass gas and have mild cramping or bloating in your abdomen. This is caused by the air thatwas used to open your colon during the exam. If you were given a sedative during the procedure, it can affect you for several hours. Do not drive or operate machinery until your health care provider says that it is safe. It is up to you to get the results of your procedure. Ask your health care provider, or the department that is doing the procedure, when your results will be ready. Summary A colonoscopy is a procedure to look at the entire large intestine. Follow instructions from your health care provider about eating and drinking before the procedure. If you were prescribed an oral bowel prep to clean out your colon, take it as told by your health care provider. During the colonoscopy, a flexible tube with a camera on its end is inserted into the anus and thenpassed into all parts of the large intestine. This information is not intended to replace advice given to you by your health care provider. Make sure you discuss any questions you have with your health care provider. Document Revised: 04/27/2022 Document Reviewed: 12/24/2021 [employer] Patient Education 2022 Vocation. Follow Up Care 12/28/2022 08:53:11 With:Anjali Ruby CNP Address: When:1 to 2 weeks Comments:Following EGD/Colonoscopy. [facility] 08-29-2023 NoteRadiology Colonoscopy, Adult A colonoscopy is a procedure to look at the entire large intestine. This procedure is done using a long, thin, flexible tube that has a camera on the end. You may have a colonoscopy: ? As a part of normal colorectal screening. ? If you have certain symptoms, such as: ? A low number of red blood cells in your blood (anemia). ? Diarrhea that does not go away. ? Pain in your abdomen. ? Blood in your stool. A colonoscopy can help screen for and diagnose medical problems, including: ? An abnormal growth of cells or tissue (tumor). ? Abnormal growths within the lining of your intestine (polyps). ? Inflammation. ? Areas of bleeding. Tell your health care provider about: ? Any allergies you have. ? All medicines you are taking, including vitamins, herbs, eye drops, creams, and wfda-mhq-ojtdyzg medicines. ? Any problems you or family members have had with anesthetic medicines. ? Any bleeding problems you have. ? Any surgeries you have had. ? Any medical conditions you have. ? Any problems you have had with having bowel movements. ? Whether you are or may be . What are the risks? Generally, this is a safe procedure. However, problems may occur, including: ? Bleeding. ? Damage to your intestine. ? Allergic reactions to medicines given during the procedure. ? Infection. This is rare. What happens before the procedure? Eating and drinking restrictions Follow instructions from your health care provider about eating or drinking restrictions, which mayinclude: ? A few days before the procedure: ? Follow a low-fiber diet. ? Avoid nuts, seeds, dried fruit, raw fruits, and vegetables. ? 1?3 days before the procedure: ? Eat only gelatin dessert or ice pops. ? Drink only clear liquids, such as water, clear juice, clear broth or bouillon, black coffee or tea, or clear soft drinks or sports drinks. ? Avoid liquids that contain red or purple dye. ? The day of the procedure: ? Do not eat solid foods. You may continue to drink clear liquids until up to 2 hours before the procedure. ? Do not eat or drink anything starting 2 hours before the procedure, or within the time period that your health care provider recommends. Bowel prep If you were prescribed a bowel prep to take by mouth (orally) to clean out your colon: ? Take it as told by your health care provider. Starting the day before your procedure, you will need to drink a large amount of liquid medicine. The liquid will cause you to have many bowel movements of loose stool until your stool becomes almost clear or light green. ? If your skin or the opening between the buttocks (anus) gets irritated from diarrhea, you may relieve the irritation using: ? Wipes with medicine in them, such as adult wet wipes with aloe and vitamin E. ? A product to soothe skin, such as petroleum jelly. ? If you vomit while drinking the bowel prep: ? Take a break for up to 60 minutes. ? Begin the bowel prep again. ? Call your health care provider if you keep vomiting or you cannot take the bowel prep without vomiting. ? To clean out your colon, you may also be given: ? Laxative medicines. These help you have a bowel movement. ? Instructions for enema use. An enema is liquid medicine injected into your rectum. Medicines Ask your health care provider about: ? Changing or stopping your regular medicines or supplements. This is especially important if you are taking iron supplements, diabetes medicines, or blood thinners. ? Taking medicines such as aspirin and ibuprofen. These medicines can thin your blood. Do not take these medicines unless your health care provider tells you to take them. ? Taking prmw-zfv-nqolmxa medicines, vitamins, herbs, and supplements. General instructions ? Ask your health care provider what steps will be taken to help prevent infection. These may include washing skin with a germ-killing soap. ? If you will be going home right after the procedure, plan to have a responsible adult: ? Take you home from the hospital or clinic. You will not be allowed to drive. ? Care for you for the time you are told. What happens during the procedure? ? An IV will be inserted into one of your veins. ? You will be given a medicine to make you fall asleep (general anesthetic). ? You will lie on your side with your knees bent. ? A lubricant will be put on the tube. Then the tube will be: ? Inserted into your anus. ? Gently eased through all parts of your large intestine. ? Air will be sent into your colon to keep it open. This may cause some pressure or cramping. ? Images will be taken with the camera and will appear on a screen. ? A small tissue sample may be removed to be looked at under a microscope (biopsy). The tissue may be sent to a lab for testing if any signs of problems are found. ? If small polyps are found, they may be removed and checked for cancer cells. (more content not included)...[facility]08-01-2023 Note Radiology Colonoscopy, Adult A colonoscopy is a procedure to look at the entire large intestine. This procedure is done using a long, thin, flexible tube that has a camera on the end. You may have a colonoscopy: ? As a part of normal colorectal screening. ? If you have certain symptoms, such as: ? A low number of red blood cells in your blood (anemia). ? Diarrhea that does not go away. ? Pain in your abdomen. ? Blood in your stool. A colonoscopy can help screen for and diagnose medical problems, including: ? An abnormal growth of cells or tissue (tumor). ? Abnormal growths within the lining of your intestine (polyps). ? Inflammation. ? Areas of bleeding. Tell your health care provider about: ? Any allergies you have. ? All medicines you are taking, including vitamins, herbs, eye drops, creams, and lfyn-kgy-oiagaem medicines. ? Any problems you or family members have had with anesthetic medicines. ? Any bleeding problems you have. ? Any surgeries you have had. ? Any medical conditions you have. ? Any problems you have had with having bowel movements. ? Whether you are or may be . What are the risks? Generally, this is a safe procedure. However, problems may occur, including: ? Bleeding. ? Damage to your intestine. ? Allergic reactions to medicines given during the procedure. ? Infection. This is rare. What happens before the procedure? Eating and drinking restrictions Follow instructions from your health care provider about eating or drinking restrictions, which mayinclude: ? A few days before the procedure: ? Follow a low-fiber diet. ? Avoid nuts, seeds, dried fruit, raw fruits, and vegetables. ? 1?3 days before the procedure: ? Eat only gelatin dessert or ice pops. ? Drink only clear liquids, such as water, clear juice, clear broth or bouillon, black coffee or tea, or clear soft drinks or sports drinks. ? Avoid liquids that contain red or purple dye. ? The day of the procedure: ? Do not eat solid foods. You may continue to drink clear liquids until up to 2 hours before the procedure. ? Do not eat or drink anything starting 2 hours before the procedure, or within the time period that your health care provider recommends. Bowel prep If you were prescribed a bowel prep to take by mouth (orally) to clean out your colon: ? Take it as told by your health care provider. Starting the day before your procedure, you will need to drink a large amount of liquid medicine. The liquid will cause you to have many bowel movements of loose stool until your stool becomes almost clear or light green. ? If your skin or the opening between the buttocks (anus) gets irritated from diarrhea, you may relieve the irritation using: ? Wipes with medicine in them, such as adult wet wipes with aloe and vitamin E. ? A product to soothe skin, such as petroleum jelly. ? If you vomit while drinking the bowel prep: ? Take a break for up to 60 minutes. ? Begin the bowel prep again. ? Call your health care provider if you keep vomiting or you cannot take the bowel prep without vomiting. ? To clean out your colon, you may also be given: ? Laxative medicines. These help you have a bowel movement. ? Instructions for enema use. An enema is liquid medicine injected into your rectum. Medicines Ask your health care provider about: ? Changing or stopping your regular medicines or supplements. This is especially important if you are taking iron supplements, diabetes medicines, or blood thinners. ? Taking medicines such as aspirin and ibuprofen. These medicines can thin your blood. Do not take these medicines unless your health care provider tells you to take them. ? Taking gnff-xiq-rzvcssm medicines, vitamins, herbs, and supplements. General instructions ? Ask your health care provider what steps will be taken to help prevent infection. These may include washing skin with a germ-killing soap. ? If you will be going home right after the procedure, plan to have a responsible adult: ? Take you home from the hospital or clinic. You will not be allowed to drive. ? Care for you for the time you are told. What happens during the procedure? ? An IV will be inserted into one of your veins. ? You will be given a medicine to make you fall asleep (general anesthetic). ? You will lie on your side with your knees bent. ? A lubricant will be put on the tube. Then the tube will be: ? Inserted into your anus. ? Gently eased through all parts of your large intestine. ? Air will be sent into your colon to keep it open. This may cause some pressure or cramping. ? Images will be taken with the camera and will appear on a screen. ? A small tissue sample may be removed to be looked at under a microscope (biopsy). The tissue may be sent to a lab for testing if any signs of problems are found. ? If small polyps are found, they may be removed and checked for cancer cells. 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 male here today for evaluation post Covid 19 illness Known coronary artery disease, hypertension, permanent pacemaker placement HPI Presents today with for check up per PCP request post Covid infection at the end of September. Currently reports typical shortness of breath, denied chest pain or orthopnea. Denied increased fatigue, fever, or chills Admits some constipation that his PCP is managing with miralax Review of Systems Constitutional: Negative. Cardiovascular: Negative. Neurological: Negative. All other systems reviewed and are negative. ED visit for near syncope 1 week post Covid, he was DC to home. Visit Vitals BP 114/77 (BP Location: Left arm, Patient Position: Sitting) Pulse 64 Ht 1.651 m (5' 5 ) Wt 76.7 kg (169 lb) SpO2 96% BMI 28.12 kg/m??? Smoking Status Former BSA 1.88 m??? Allergies Allergen Reactions Adhesive Tape-Silicones Niacin Medications: Current Outpatient Medications on File Prior to Visit Medication Sig Dispense Refill amLODIPine (Norvasc) 5 mg tablet TAKE 1 TABLET BY MOUTH DAILY 90 tablet 2 aspirin 81 mg EC tablet Take 1 tablet every day by oral route. clopidogrel (Plavix) 75 mg tablet Take 1 tablet (75 mg) by mouth in the morning. 90 tablet 3 dorzolamide (Trusopt) 2 % ophthalmic solution every 8 (eight) hours. furosemide (Lasix) 20 mg tablet Take 1 tablet every day by oral route. gabapentin (Neurontin) 600 mg tablet Take 1 tablet by mouth in the morning, at noon, and at bedtime. irbesartan (Avapro) 300 mg tablet Take 1 tablet (300 mg) by mouth in the morning. 90 tablet 3 isosorbide mononitrate ER (Imdur) 30 mg 24 hr tablet Take 1 tablet (30 mg) by mouth in the morning. 90 tablet 3 latanoprost (Xalatan) 0.005 % ophthalmic solution PLACE 1 DROP INTO BOTH EYES AT BEDTIME loperamide (Imodium) 2 mg capsule every 6 (six) hours. metFORMIN XR (Glucophage-XR) 500 mg 24 hr tablet Take 500 mg by mouth in the morning and at bedtime. omeprazole (PriLOSEC) [address] capsule Take 40 mg by mouth before breakfast. Do not crush or chew. rosuvastatin (Crestor) 10 mg tablet Take 1 tablet by mouth in the morning. sotalol (Betapace) 80 mg tablet Take 0.5 tablets (40 mg) by mouth in the morning and at bedtime. 90 tablet 3 tiZANidine (Zanaflex) 4 mg tablet TAKE 1/2 TO 1 TABLET BY MOUTH EVERY DAY AT NIGHT [DISCONTINUED] xyuxgmqgiS-jtmguxncee-ldd-cod (Fioricet W/Codeine) 57-740-28-30 mg capsule Take 1 capsule by mouth every 4 (four) hours if needed. [DISCONTINUED] cdiijhitmj-rvkdcbqdezqfy-woll (Fioricet) 50-300-40 mg capsule every 4 (four) hours. [DISCONTINUED] diphenhydrAMINE-acetaminophen (Tylenol PM) 25-500 mg per tablet Take 1 tablet by mouth if needed at bedtime for sleep. [DISCONTINUED] divalproex (Depakote) 250 mg EC tablet every 8 (eight) hours. [DISCONTINUED] docusate sodium (Colace) 100 mg capsule Take 100 mg by mouth in the morning and at bedtime. [DISCONTINUED] fluticasone (Flonase) 50 mcg/actuation nasal spray 1 (one) time each day at the same time. [DISCONTINUED] glimepiride (Amaryl) 2 mg tablet Take 2 mg by mouth in the morning. [DISCONTINUED] magnesium 30 mg tablet Take 30 mg by mouth in the morning and at bedtime. [DISCONTINUED] meloxicam (Mobic) 15 mg tablet Take 15 mg by mouth in the morning. [DISCONTINUED] multivitamin tablet Take 1 tablet by mouth in the morning. [DISCONTINUED] omega-3/dha/epa/dpa/fish oil (OMEGA-3 2100 ORAL) Take by mouth. [DISCONTINUED] pantoprazole (ProtoNix) 20 mg EC tablet Take 1 tablet by mouth in the morning and at bedtime. [DISCONTINUED] prazosin (Minipress) 5 mg capsule Take 5 mg by mouth at bedtime. [DISCONTINUED] sucralfate (Carafate) 1 gram tablet Take 1 g by mouth before breakfast, before lunch, before evening meal, and at bedtime. [DISCONTINUED] temazepam (Restoril) 15 mg capsule Take 15 mg by mouth if needed at bedtime for sleep. [DISCONTINUED] traZODone (Desyrel) 50 mg tablet TAKE 1 TABLET BY MOUTH EVERYDAY AT BEDTIME [DISCONTINUED] zolpidem (Ambien) 5 mg tablet 1 tablet at bedtime. No current facility-administered medications on file prior to visit. Physical Exam: Constitutional: Appearance: Normal appearance. Without apparent distress, obese chronically ill HENT: Head: Normocephalic and atraumatic. Nose: Nose normal. Mouth/Throat: Mouth: Mucous membranes are moist. Eyes: Extraocular Movements: Extraocular movements intact. Conjunctiva/sclera: Conjunctivae normal. Neck: Vascular: No JVD. Cardiovascular: Rate and Rhythm: Normal rate and regular rhythm. Pulses: Dorsalis pedis pulses are 3 on the right side and 3on the left side. Posterior tibial pulses are 3 on the right side and 3 on the left side. Heart sounds: Normal heart sounds, S1 normal and S2 normal. Pulmonary: Effort: Pulmonary effort is normal. Breath sounds: Normal breath sounds. Abdominal: General: Bowel sounds are n (more content not included)...[facility]06-27[facility]23 NoteHere today for evaluation post Covid 19 illness, appears to be recovered well, no concerning cardiac symptoms currently. [facility] Encounter Date Diagnosis Assessment Notes Treatment Notes Treatment Clinical Notes September, Obstructive sleep apnea (ICD-10 - G47.33) Fortunately the patient is using and benefiting from treatment. He has previously documented severe obstructive sleep apnea with an AHI of almost 70 events per hour. The obstructive events have been controlled using BiPAP, but he appears to have continued breakthrough central events. He does have continued excessive daytime sleepiness, but has other medical problems and medications which may contribute to this. He does not have known medical conditions which would predispose to central apneas. However, he was tentatively diagnosed with complex sleep apnea in 2017, though he was not assessed for or treated with ASV or BiPAP ST. Unfortunately, the auto BiPAP did not prove to resolve his central apneas, and moreover he is having issues with mask leakage that he was unable to resolve with multiple mask styles. Thus, I do feel that going forward with an in-lab sleep titration study is necessary at this time. Pt is agreeable and will f/u after study results. September, Other Call if any questions or problems. Patient is advised to work on healthy diet choices and appropriate servings, weight control, regular exercise as directed, and reduce fat intake. Use machine regularly, and keep up with mask changes as needed. Call if problems with mask toleration, increased sleepiness, or poor response to treatment. . [employer] Other 05-09-2023 NoteInfectious Disease COVID-19 COVID-19, or coronavirus disease 2019, is an infection that is caused by a new (novel) coronavirus called SARS-CoV-2. COVID-19 can cause many symptoms. In some people, the virus may not cause any symptoms. In others, it may cause mild or severe symptoms. Some people with severe infection develop severe disease. What are the causes? This illness is caused by a virus. The virus may be in the air as tiny specks of fluid (aerosols) or droplets, or it may be on surfaces. You may catch the virus by: ? Breathing in droplets from an infected person. Droplets can be spread by a person breathing, speaking, singing, coughing, or sneezing. ? Touching something, like a table or a doorknob, that has virus on it (is contaminated) and then touching your mouth, nose, or eyes. What increases the risk? Risk for infection: You are more likely to get infected with the COVID-19 virus if: ? You are within 6 ft (1.8 m) of a person with COVID-19 for 15 minutes or longer. ? You are providing care for a person who is infected with COVID-19. ? You are in close personal contact with other people. Close personal contact includes hugging, kissing, or sharing eating or drinking utensils. Risk for serious illness caused by COVID-19: You are more likely to get seriously ill from the COVID-19 virus if: ? You have cancer. ? You have a long-term (chronic) disease, such as: ? Chronic lung disease. This includes pulmonary embolism, chronic obstructive pulmonary disease, and cystic fibrosis. ? Long-term disease that lowers your body's ability to fight infection (immunocompromise). ? Serious cardiac conditions, such as heart failure, coronary artery disease, or cardiomyopathy. ? Diabetes. ? Chronic kidney disease. ? Liver diseases. These include cirrhosis, nonalcoholic fatty liver disease, alcoholic liver disease, or autoimmune hepatitis. ? You have obesity. ? You are or were recently . ? You have sickle cell disease. What are the signs or symptoms? Symptoms of this condition can range from mild to severe. Symptoms may appear any time from 2 to 14days after being exposed to the virus. They include: ? Fever or chills. ? Shortness of breath or trouble breathing. ? Feeling tired or very tired. ? Headaches, body aches, or muscle aches. ? Runny or stuffy nose, sneezing, coughing, or sore throat. ? New loss of taste or smell. This is rare. Some people may also have stomach problems, such as nausea, vomiting, or diarrhea. Other people may not have any symptoms of COVID-19. How is this diagnosed? This condition may be diagnosed by testing samples to check for the COVID-19 virus. The most commontests are the PCR test and the antigen test. Tests may be done in the lab or at home. They include: ? Using a swab to take a sample of fluid from the back of your nose and throat (nasopharyngeal fluid), from your nose, or from your throat. ? Testing a sample of saliva from your mouth. ? Testing a sample of coughed-up mucus from your lungs (sputum). How is this treated? Treatment for COVID-19 infection depends on the severity of the condition. ? Mild symptoms can be managed at home with rest, fluids, and oxgc-hsk-xmbpckm medicines. ? Serious symptoms may be treated in a hospital intensive care unit (ICU). Treatment in the ICU mayinclude: ? Supplemental oxygen. Extra oxygen is given through a tube in the nose, a face mask, or a foy. ? Medicines. These may include: ? Antivirals, such as monoclonal antibodies. These help your body fight off certain viruses that can cause disease. ? Anti-inflammatories, such as corticosteroids. These reduce inflammation and suppress the immune system. ? Antithrombotics. These prevent or treat blood clots, if they develop. ? Convalescent plasma. This helps boost your immune system, if you have an underlying immunosuppressive condition or are getting immunosuppressive treatments. ? Prone positioning. This means you will lie on your stomach. This helps oxygen to get into your lungs. ? Infection control measures. If you are at risk for more serious illness caused by COVID-19, your health care provider may prescribe two long-acting monoclonal antibodies, given together every 6 months. How is this prevented? To protect yourself: ? Use preventive medicine (pre-exposure prophylaxis). You may get pre-exposure prophylaxis if you have moderate or severe immunocompromise. ? Get vaccinated. Anyone 6 months old or older who meets guidelines can get a COVID-19 vaccine or vaccine series. This includes people who are or making breast milk (lactating). ? Get an added dose of COVID-19 vaccine after your first vaccine or vaccine series if you have moderate to severe immunocompromise. This applies if you have had a solid organ transplant or have been diagnosed with an immunocompromising condition. ? You should (more content not included)...[facility]05-09-2023 Hospital Discharge instructions Patient Education 09/22/2022 18:15:09 COVID-19 COVID-19 COVID-19, or coronavirus disease 2019, is an infection that is caused by a new (novel) coronavirus called SARS-CoV-2. COVID-19 can cause many symptoms. In some people, the virus may not cause any symptoms. In others, it may cause mild or severe symptoms. Some people with severe infection develop severe disease. What are the causes? This illness is caused by a virus. The virus may be in the air as tiny specks of fluid (aerosols) or droplets, or it may be on surfaces. You may catch the virus by: Breathing in droplets from an infected person. Droplets can be spread by a person breathing, speaking, singing, coughing, or sneezing. Touching something, like a table or a doorknob, that has virus on it (is contaminated) and then touching your mouth, nose, or eyes. What increases the risk? Risk for infection: You are more likely to get infected with the COVID-19 virus if: You are within 6 ft (1.8 m) of a person with COVID-19 for 15 minutes or longer. You are providing care for a person who is infected with COVID-19. You are in close personal contact with other people. Close personal contact includes hugging, kissing, or sharing eating or drinking utensils. Risk for serious illness caused by COVID-19: You are more likely to get seriously ill from the COVID-19 virus if: You have cancer. You have a long-term (chronic) disease, such as: ?Chronic lung disease. This includes pulmonary embolism, chronic obstructive pulmonary disease, andcystic fibrosis. ?Long-term disease that lowers your body's ability to fight infection (immunocompromise). ?Serious cardiac conditions, such as heart failure, coronary artery disease, or cardiomyopathy. ?Diabetes. ?Chronic kidney disease. ?Liver diseases. These include cirrhosis, nonalcoholic fatty liver disease, alcoholic liver disease, or autoimmune hepatitis. You have obesity. You are or were recently . You have sickle cell disease. What are the signs or symptoms? Symptoms of this condition can range from mild to severe. Symptoms may appear any time from 2 to 14days after being exposed to the virus. They include: Fever or chills. Shortness of breath or trouble breathing. Feeling tired or very tired. Headaches, body aches, or muscle aches. Runny or stuffy nose, sneezing, coughing, or sore throat. New loss of taste or smell. This is rare. Some people may also have stomach problems, such as nausea, vomiting, or diarrhea. Other people may not have any symptoms of COVID-19. How is this diagnosed? This condition may be diagnosed by testing samples to check for the COVID-19 virus. The most commontests are the PCR test and the antigen test. Tests may be done in the lab or at home. They include: Using a swab to take a sample of fluid from the back of your nose and throat (nasopharyngeal fluid), from your nose, or from your throat. Testing a sample of saliva from your mouth. Testing a sample of coughed-up mucus from your lungs (sputum). How is this treated? Treatment for COVID-19 infection depends on the severity of the condition. Mild symptoms can be managed at home with rest, fluids, and tktp-joj-sgrgirg medicines. Serious symptoms may be treated in a hospital intensive care unit (ICU). Treatment in the ICU may include: ?Supplemental oxygen. Extra oxygen is given through a tube in the nose, a face mask, or a foy. ?Medicines. These may include: ?Antivirals, such as monoclonal antibodies. These help your body fight off certain viruses that cancause disease. ?Anti-inflammatories, such as corticosteroids. These reduce inflammation and suppress the immune system. ?Antithrombotics. These prevent or treat blood clots, if they develop. ?Convalescent plasma. This helps boost your immune system, if you have an underlying immunosuppressive condition or are getting immunosuppressive treatments. ?Prone positioning. This means you will lie on your stomach. This helps oxygen to get into your lungs. ?Infection control measures. If you are at risk for more serious illness caused by COVID-19, your health care provider may prescribe two long-acting monoclonal antibodies, given together every 6 months. How is this prevented? To protect yourself: Use preventive medicine (pre-exposure prophylaxis). You may get pre-exposure prophylaxis if you have moderate or severe immunocompromise. Get vaccinated. Anyone 6 months old or older who meets guidelines can get a COVID-19 vaccine or vaccine series. This includes people who are or making breast milk (lactating). Get an added dose of COVID-19 vaccine after your first vaccine or vaccine series if you have moderate to severe immunocompromise. This applies if you have had a solid organ transplant or have been diagnosed with an immunocompromising condition. ?You should get the added dose 4 weeks after you got the first COVID-19 vaccine or vaccine series. ?If you get an mRNA vaccine, you will need a 3-dose primary series. ?If you get the J&J/Alesha vaccine, you will need a 2-dose primary series, with the second dose being an mRNA vaccine. Talk to your health care provider about getting experimental monoclonal antibodies. This treatment is approved under emergency use authorization to prevent severe illness before or after being exposed to the COVID-19 virus. You may be given monoclonal antibodies if: ?You have moderate or severe immunocompromise. This includes treatments that lower your immune response. People with immunocompromise may not develop protection against COVID-19 when they are vaccinated. ?You cannot be vaccinated. You may not get a vaccine if you have a severe allergic reaction to the vaccine or its components. ?You are not fully vaccinated. ?You are in a facility where COVID-19 is present and: ?Are in close contact with a person who is infected with the COVID-19 virus. ?Are at high risk of being exposed to the COVID-19 virus. ?You are at risk of illness from new variants of the COVID-19 virus. To protect others: If you have symptoms of COVID-19, take steps to prevent the virus from spreading to others. Stay home. Leave your house only to get medical care. Do not use public transit, if possible. Do not travel while you are sick. Wash your hands often with soap and water for at least 20 seconds. If soap and water are not available, use alcohol-based hand crane engineer. Make sure that all people in your household wash their hands well and often. Cough or sneeze into a tissue or your sleeve or elbow. Do not cough or sneeze into your hand or into the air. Where to find more information Centers for Disease Control and Prevention: www.cdc.gov/coronavirus World Health Organization: www.who.int/health-topics/coronavirus Get help right away if: You have trouble breathing. You have pain or pressure in your chest. You are confused. You have bluish lips and fingernails. You have trouble waking from sleep. You have symptoms that get worse. These symptoms may be an emergency. Get help right away. Call 911. Do not wait to see if the symptoms will go away. Do not drive yourself to the hospital. Summary COVID-19 is an infection that is caused by a new coronavirus. Sometimes, there are no symptoms. Other times, symptoms range from mild to severe. Some people witha severe COVID-19 infection develop severe disease. The virus that causes COVID-19 can spread from person to person through droplets or aerosols from breathing, speaking, singing, coughing, or sneezing. Mild symptoms of COVID-19 can be managed at home with rest, fluids, and xppw-jdl-ygtnvaw medicines. This information is not intended to replace advice given to you by your health care provider. Make sure you discuss any questions you have with your health care provider. Document Revised: 04/23/2022 Document Reviewed: 04/23/2022 [employer] Patient Education 2022 [employer]. Follow Up Care 09/22/2022 16:24:11 With:Sabino Cooper Address: [address] [place] [address] Business (2) When:09/25/2022 18:12:09 [facility]05-09-2023 Evaluation note* Encounter Date Diagnosis Assessment Notes Treatment Notes Treatment Clinical Notes September, Acute cough (ICD-10 - R05.1) September, COVID-19 (ICD-10 - U07.1) Discharge Instructions for COVID-19 (Suspected or Confirmed ) material was printed Drink plenty fluids, get plenty of rest. Take Tylenol as needed for aches or pains. Continue home medications as prescribed. You must quarantine for 5 days after the onset of your symptoms of COVID. Follow-up with your family physician if no improvement in 2 to 3 days. [employer] Other 04-11-2023 NoteCONSULTATION CONSULTATION DATE: 08/25/2022 TO: Sabino Cooper M.D. CHIEF COMPLAINT: Includes severe left lower back pain. HISTORY: Patient presents today complaining of 5-7/10 pain in his left lower back area, sharp in character, increased with activity such as standing, walking and performing transitioning maneuvers. Denies any change in bowel and bladder habits or new sensorimotor changes in his lower extremities. EXAM: Notable for the patient having no clinical radiculopathy or myelopathy involving his lower extremities. On today's visit, patient did have severe pain with lumbar facet joint loading maneuvers occurring on the left side from L3 through S1 with associated myofascial spasm of the lumbar paravertebral muscles. He has undergone a diagnostic left sided L2, 3, 4, 5 medial branch block under fluoroscopic guidance. He reports his pain was dramatically improved during the immediate post procedural period. Reports his pain being improved by 100% with recurrence of pain back to baseline after 3-4 hours. RECOMMENDATIONS: Patient will proceed to second diagnostic medial branch block on the left side at L2, 3, 4 and 5 to establish reliability. Of note, his TEREZA on today's visit is 19. As part of providing excellent, safe, comprehensive care, the following was completed at our patient's visit: 1. A medication reconciliation and review to ensure accurate knowledge of current/active medications, including asking our patients to inform us about any uzlx-jmc-kolnvvs medications or herbal remedies/nutritional supplements/alternative remedies. 2. A review to specifically ensure our patients have had annual screening for: elevated body mass index (BMI, see intake chart for exact total), tobacco use, screening for depression, and screening for unhealthy alcohol use. When screening is concerning, patients are provided with education and the specific recommendation to discuss the concerning health issue and treatment options with their primary care provider.[id number] Evaluation note * Encounter Date Diagnosis Assessment Notes Treatment Notes Treatment Clinical Notes Jul, Obstructive sleep apnea (ICD-10 - G47.33) He has previously documented severe obstructive sleep apnea with an AHI of almost 70 events per hour. The obstructive events have been controlled using BiPAP, but he appears to have continued breakthrough central events. He does have continued excessive daytime sleepiness, but has other medical problems and medications which may contribute to this. He does not have known medical conditions which would predispose to central apneas. However, he was tentatively diagnosed with complex sleep apnea in 2017, though he was not assessed for or treated with ASV or BiPAP ST. This is a complex situation and there are several options going forward. For now he would like to hold off on a titration study, and I am hoping that some changes in settings may be enough to resolve centrals. I will change his current fixed pressure machine to BiPAP 14/10, and we will get a download on that setting. We will also order a replacement machine as its been 6 years since his last device, and will make sure that this device has auto capability. I will order auto BiPAP maximum 18 minimum 6 pressure support 4 and we will follow downloads with that as well. Should he continue to have central events, titration may prove necessary. He will return for 31 to 90-day visit Jul, Central apnea (ICD-10 - R06.81) He had central sleep apneas on his titration portion of the split-night study, and during the subsequent full titration night. His downloads have continued to show breakthrough central events. From available data, I cannot rule out the possibility of overaggressive treatment contributing to central events. However it is also possible that he has complex sleep apnea with emerging central apnea after control of obstructive events. We will try reducing his fixed pressure BiPAP and get a download on that while we are waiting to get a new auto BiPAP capable machine. 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 I extensively discussed the principles of good sleep hygiene, and suggested we start by limiting time in bed to 8 hours. Circadian rhythm systems were discussed, and the importance of regular awakening times was reviewed. I encouraged him to get up every day at 730, and to try staying up till 1130. I am hopeful that on the schedule he will have decreased need for hypnotic agents, and may be able to reduce the dose or even eliminate. Handouts provided. Sedating agents may contribute to daytime drowsiness, particularly in the morning, and side effects of these agents tend to worsen as we age 14Jul, Excessive daytime sleepiness (ICD-10 - G47.19) His excessive daytime sleepiness could come from a number of factors. Suboptimal control of sleep apnea is certainly one of them, but and medication side effect may contribute as well. He will work with his prescribing providers to see if lower doses of gabapentin may still control his neuropathic pain without adding to daytime drowsiness. If he is able to sleep with less Tylenol PM this may also reduce tiredness symptoms. We will continue to follow and reevaluate this complex set of interacting contributors to fatigue Jul, Essential hypertension (ICD-10 - I10) Control of sleep apnea will frequently have a positive effect on blood pressure control, and may additionally reduce blood pressure lability. Jul, Polyneuropathy associated with underlying disease (ICD-10 - G63) He has been on gabapentin with doses as high as 500 mg 3 times daily. He reduced to 500 mg twice daily without significant change in pain. We discussed other doses available and encouraged him to work with his prescribing providers to find the lowest dose that effectively controls his neuropathy pain Jul, Coronary artery disease involving [place] heart without angina pectoris, unspecified vessel or lesion type (ICD-10 - I25.10) Although he has diagnosis of coronary artery disease, he is not aware of any congestive heart failure. Central apneas are associated with congestive heart failure, and there is a bidirectional relationship between central sleep apnea and CHF. I am hopeful that he is correct and that no such factor is affecting him Jul, Paroxysmal ventricular tachycardia (ICD-10 - I47.29) Nocturnal hypoxemia or apneic events with adrenergic surges at termination could each contribute to ventricular tachycardia episodes. Fortunately these are currently controlled after ablation and he does have a defibrillator in place [employer] Other 03-09-2023 NoteCONSULTATION CONSULTATION DATE: 07/23/2022 HISTORY OF PRESENT ILLNESS: This is an 81-year-old gentleman who returns to the clinic for a six month follow up. Today, he is complaining of lower back pain. He did have lumbar radiofrequency ablation of L2 through L5 bilaterally in August of 2021. He has consistently stated that the left side has been more painful, and felt that the procedure did not help him. At his last visit on 12/25/2021, he received a lower lumbar trigger point injection, which gave him moderate relief for a couple days. He denies any radiating pain at this time. He does walk unassisted and has been using heat and doing stretches at home. He is currently being worked up for cervical issues with [facility], and there is a cervical MRI pending. Overall, he feels that the left lower lumbar area has been progressively worse over the last several months. Activities such as lifting, transitioning positions, pushing, pulling, any physical activity aggravates his pain. Current medications by his PCP include tizanidine 4 mg q.h.s., gabapentin 600 mg t.i.d., temazepam, multivitamin and Plavix. Patient's REVIEW OF SYSTEMS / PAST MEDICAL HISTORY / ALLERGIES and IMAGES have been reviewed and noted on the chart. PHYSICAL EXAM: VITAL SIGNS: Blood pressure 100/65, heart rate is 65. Temperature is 97.5. He is 5'6 and weighs 83 kg. GENERAL IMPRESSION: Pleasant, appropriate, in no acute distress. FOCUSED EXAM - BACK: Range of motion is guarded with lateral rotation. Reproduction of spinal axial pain to the left side, particularly to L2, L3 and L4, L5. Fullness palpated indicative of facet arthropathy, lumbar spondylosis. Pain is non-radiating. Paravertebral muscles are non-spasmodic. MUSCULOSKELETAL: Diffuse muscle atrophy noted bilateral lower extremities. Patient does walk unassisted with a slow, antalgic gait. NEUROLOGICAL: Lower extremity radicular sensory is intact. 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 Reflexes are +1 bilaterally. DIAGNOSIS: Spinal axial lower back pain, lumbar degenerative disc disease, lumbar spondylosis. PLAN: At the one year rafi on 08/19/2022, we will authorize to repeat left sided RFA of L2, L3 and L4, L5. He is to continue with the heat application and stretches at home. We will also get approval to hold his Plavix prior to the procedure. Patient is in agreement with this care, will be followed up with a visit to the clinic thereafter. ADDENDUM: CARE PLAN: We will not repeat radiofrequency ablation to the left side. We will start with the #1 left sided MBB of L2, L3 and L4, L5, as this will begin the start of a new rhizotomy series. Patient is in agreement to this plan, will be followed up in the clinic thereafter. We will gain authorization to hold the Plavix pre-procedure.[id number] NotePROCEDURE: XR ANKLE RT MIN 3 VIEWS COMPARISON: 08/22/2020 HISTORY: Pain of right ankle joint FINDINGS: BONES:No acute fracture or dislocation. Moderate enthesopathic spurring of the calcaneus. Degenerative changes with bone fragments along the inferior medial malleolus, stable. SOFT TISSUES:Negative. No visible soft tissue swelling. EFFUSION:None visible. OTHER: Negative. IMPRESSION: Stable degenerative changes Electronically authenticated by: ERWIN FALCON Date: 2022-07-22 10:37[id number] NotePROCEDURE: XR FOOT RT MIN 3 VIEWS HISTORY: Pain in right foot ; acute pain in arch COMPARISON: XR foot right 08/22/2020 FINDINGS: BONES:Marked degenerative changes the first metatarsophalangeal joint. Small calcaneal plantar spur and Achilles tendon degenerative enthesophyte. No fracture, dislocation, bone lesion. No significant flattening of the plantar arch. SOFT TISSUES:No visible soft tissue swelling. EFFUSION:None visible. OTHER: Negative. IMPRESSION: 1. No acute bone abnormality or specific findings to account for patient's symptoms. 2. Stable degenerative changes. Electronically authenticated by: CLARISSA GARCIA Date: 2022-06-16 15:25[facility] [id number] Note [id number]:[id number] 05-26-2022 Hospital Discharge instructions Patient Education 05/26/2022 13:46:25 EU - Cystoscopy Discharge Instructions (CUSTOM) Cystoscopy Voiding after the procedure: there may be some pain, burning, urgency, frequency and blood tinged urine following the procedure. These symptoms usually resolve within 2-5 days. Drink the amount of fluid it takes to keep the urine pink to yellow or clear in color. Drinking enough water and fluids will help to ease any discomfort after your procedure. If you are having problems that seem out of the ordinary, please call. If unable to contact your physician and you feel it is an emergency, go to the nearest emergency room or call 911 Diet you may resume your normal diet. Activity you may resume your normal activities Call if you have a fever over 100 degrees. Follow Up Care 04/27/2022 10:00:36 With:Dequan GALICIA Address: [facility] [address], [place] [address]- Business (1) When: Unknown Comments:Office will call to schedule follow up [facility]01-10-2023 NoteCustom Cystoscopy ? Voiding after the procedure: there may be some pain, burning, urgency, frequency and blood tingedurine following the procedure. These symptoms usually resolve within 2-5 days. Drink the amount of fluid it takes to keep the urine pink to yellow or clear in color. Drinking enough water and fluids will help to ease any discomfort after your procedure. ? If you are having problems that seem out of the ordinary, please call. ? If unable to contact your physician and you feel it is an emergency, go to the nearest emergency room or call 911 ? Diet ? you may resume your normal diet. ? Activity ? you may resume your normal activities ? Call if you have a fever over 100 degrees.[facility] 12-25-2021 NoteCONSULTATION PROCEDURE DATE: 12/25/2021 PRE AND POSTOPERATIVE DIAGNOSIS: Right lumbar paravertebral spasms. PROCEDURE: Right lumbar trigger point injection. Subsequent to obtaining informed consent, the patient was placed in the upright standing forward flexion position. Alcohol prep was used to sterilize the site. 25-gauge needle with 0.125% Marcaine and 40 mg of Kenalog was placed throughout the inside of the trigger zone. Negative heme. Medication was injected in the fan-like pattern and the patient tolerated it without overt complications. He will be followed up in the clinic.[facility] 12-25-2021 NoteCONSULTATION CONSULTATION DATE: 12/25/2021 This is a pleasant 81-year-old male returning to the clinic for a 2-month appointment for his chronic lower back pain and knee pain. He was last seen on 09/18/2021 when at that time he received a left lumbar trigger point injection. This was his postop follow-up for bilateral RFAs of L2, L3 and L4, L5. The patient is experiencing 75% pain relief to the right but is experiencing some tightness and dull aching to his left. It is aggravated by prolonged standing and walking. The use of heat and massage decreases his pain. He just completed 3 weeks of cardiac rehab and physical therapy for his neck. 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 They are cold to the touch. He was recently seen at an urgent care in [place] for left thumb pain and joint swelling. It was x-ray which showed no deformity or acute dislocations. He was placed at that time on the low dose prednisone taper. Current medications include gabapentin 600 mg b.i.d., tizanidine 4 mg q. p.m., Plavix, temazepam and multivitamin. All medications are prescribed per his PCP, Dr. London. REVIEW OF SYSTEMS, PAST MEDICAL HISTORY, ALLERGIES AND IMAGES: Have been reviewed and noted in the chart. PHYSICAL EXAM: VITAL SIGNS: Blood pressure 110/70, heart rate is 80, temperature is 97.3. Height is 67 , weighs 81.6 kg. GENERAL APPEARANCE: Pleasant, appropriate and in no acute distress. FOCUSED EXAM: BACK: Range of motion is functional lateral rotation and flexion/extension. Paravertebral muscles are taut with a trigger point identified to right anterior lumbar region, lateral to L2, L3. Compression of his area reproduces the patient's pain symptomatology. No reproduction of spinoaxial pain to facet compression along L2, L3 and L4, L5 indicative of successful RFA. Rachid's point is nontender bilaterally with negative Tr's. MUSCULOSKELETAL: Diffuse muscle atrophy noted to bilateral lower extremities. The patient does walk with a slow, steady and antalgic gait. Does not use assistive device. NEUROLOGICAL: Plus1 bilateral brachioradialis and triceps reflexes, diffuse polyneuropathy to bilateral hands and fingertips DIAGNOSIS: Lumbar paravertebral spasm, chronic lower back pain, lumbar degenerative disk disease and left MCP joint pain. PLAN: The patient will receive a right lumbar trigger point injection in the clinic which she does agree to and I did recommend using Voltaren gel to his left thumb MCP joint in addition to heat. I did encourage him to continue with exercise, heat and stretches to his back. The patient's agreement with this plan will be seen in three months' time unless otherwise indicated.[id number] Evaluation note* Encounter Date Diagnosis Assessment Notes Treatment Notes Treatment Clinical Notes Nov, Thumb pain, left (ICD-10 - M79.645) Use RICE therapy as discussed: Rest, Ice Compression, Elevate. Apply ice to affected area 3-4 times daily (Do not place ice source directly on skin, must cover with towel-like material). Take medication as directed. Rest and elevate sore extremity as much as possible. Do not take OTC medication pain relievers if prescription of medication given in office today. Contact office if no improvement of symptoms and we will help you get into a specialist. [employer] Other chief complaint+Reason for visit Narrative* Chief Complaint N54.2 Self Referral [facility] Work Phone: Chinr complaint+Reason for visit Narrative* Chief Complaint N54.2 Self Referral [id number] m54.12 m54.2 [facility] Work Phone: chief complaint+Reason for visit Narrative* Chief Complaint N54.2 Self Referral [id number] m54.12 m54.2 isidro, 31-90 [facility] Work Phone: Evaluation + Plan note No data available for this section [facility] Future Appointments Appointment Date:11/23/2022 09:00:00 AM Scheduled Provider:Sabino Cooper MD Location:[facility] ([facility]3] Appointment Type: Open [facility] Future Appointments Appointment Date:12/15/2022 12:00:00 PM Scheduled Provider:Anjali Ruby CNP Location:[facility] Appointment Type:[facility] New Patient Appointment Date:05/31/2023 09:00:00 AM Scheduled Provider:Sabino Cooper MD Location:[facility]3] Appointment Type: Open Appointment Date:11/08/2023 01:00:00 PM Scheduled Provider: Location:[facility]3] Appointment Type:FM Medicare Wellness Subsequent Future Scheduled Tests Laboratory* HgbA1c 11/23/22 * CBC w/ Auto Diff 11/23/22 * Comprehensive Metabolic Panel 11/23/22 * Lipid Panel 11/23/22 [facility] Future Appointments Appointment Date:05/31/2023 09:00:00 AM Scheduled Provider:Sabino Cooper MD Location:[facility]3] Appointment Type: Open Appointment Date:11/08/2023 01:00:00 PM Scheduled Provider: Location:[facility]3] Appointment Type: Medicare Wellness Subsequent Future Scheduled Tests Laboratory* HgbA1c 11/23/22 * CBC w/ Auto Diff 11/23/22 * Comprehensive Metabolic Panel 11/23/22 * Lipid Panel 11/23/22 [facility] Future Appointments Appointment Date:05/31/2023 09:00:00 AM Scheduled Provider:Sabino Cooper MD Location:[facility]3] Appointment Type: Open Appointment Date:11/08/2023 01:00:00 PM Scheduled Provider: Location:[facility]3] Appointment Type: Medicare Wellness Subsequent Future Scheduled Tests Laboratory* HgbA1c 11/23/22 * CBC w/ Auto Diff 11/23/22 * Comprehensive Metabolic Panel 11/23/22 * Lipid Panel 11/23/22 Radiology* CT Abdomen w/ Contrast 01/12/23 [facility] Evaluation + Plan note Future Appointments Appointment Date:05/03/2023 01:40:00 PM Scheduled Provider:Anjali Ruby CNP Location:[facility] Appointment Type:[facility] Follow Up Appointment Date:05/31/2023 09:00:00 AM Scheduled Provider:Sabino Cooper MD Location:[facility]3] Appointment Type: Open Appointment Date:11/08/2023 01:00:00 PM Scheduled Provider: Location:[facility]3] Appointment Type:FM Medicare Wellness Subsequent Future Scheduled Tests Laboratory* HgbA1c 11/23/22 * CBC w/ Auto Diff 11/23/22 * Comprehensive Metabolic Panel 11/23/22 * Lipid Panel 11/23/22 [facility] Evaluation + Plan note Future Appointments Appointment Date:05/03/2023 01:40:00 PM Scheduled Provider:Anjali Ruby CNP Location:[facility] Appointment Type:[facility] Follow Up Appointment Date:05/31/2023 10:00:00 AM Scheduled Provider:Sabino Cooper MD Location:[facility]3] Appointment Type: Open Appointment Date:11/08/2023 01:00:00 PM Scheduled Provider: Location:[facility]3] Appointment Type:FM Medicare Wellness Subsequent Future Scheduled Tests Laboratory* HgbA1c 11/23/22 * CBC w/ Auto Diff 11/23/22 * Comprehensive Metabolic Panel 11/23/22 * Lipid Panel 11/23/22 [facility] Evaluation + Plan note Future Appointments Appointment Date:05/03/2023 01:40:00 PM Scheduled Provider:Anjali Ruby CNP Location:[facility] Appointment Type:[facility] Follow Up Appointment Date:05/31/2023 10:00:00 AM Scheduled Provider:Sabino Cooper MD Location:[facility]3] Appointment Type: Open Appointment Date:11/08/2023 01:00:00 PM Scheduled Provider: Location:[facility]3] Appointment Type:FM Medicare Wellness Subsequent Diagnostic Tests Pending * O & P Exam, Routine 03/10/23 * Giardia lamblia, Direct Detection EIA 03/10/23 Future Scheduled Tests Laboratory* HgbA1c 11/23/22 * CBC w/ Auto Diff 11/23/22 * Comprehensive Metabolic Panel 11/23/22 * Lipid Panel 11/23/22 [facility] Assessments Information Available [facility] assessment information available [facility] Work Phone: Evaluation note* Diagnosis 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 documented in this encounter [facility] general Narrative - Reported* Type Description Date Medical History DM (diabetes mellitus) Medical History HTN (hypertension) Medical History Hypercholesteremia Medical History Vitamin D deficiency, unspecifie d Medical History CAD (coronary artery disease) Surgical History Neck Surgery Surgical History cholecystectomy Surgical History cardiac stent Surgical History prostatectomy Surgical History hernia Hospitalization History see above [employer] Other History general Narrative - Reported* Type Description Date Medical History DM (diabetes mellitus) Medical History HTN (hypertension) Medical History Hypercholesteremia Medical History Vitamin D deficiency, unspecifie d Medical History CAD (coronary artery disease) Medical History ISIDRO Medical History ventricular tachycardia Medical History diabetic neuropathy Surgical History Neck Surgery Surgical History cholecystectomy Surgical History cardiac stent Surgical History prostatectomy Surgical History hernia Hospitalization History see above [employer] Other Hospital Discharge instructions No data available for this section [facility] No data available for this section [facility] HospitalReason for referral (narrative) Referred by: Anjali Ruby CNP [facility] Summary Purpose Family History No Family History Records FoundNo Family History Records FoundNo Family History Records FoundNo Family History Records Found No data available for this section No data available for this section No data available for this section No Family History Records FoundNo Family History Records FoundNo Family History Records Found Advance Directives No Advanced Directives Records Found Advance Directive Response Recorded Date/ Time Advance Directives No August 13 10:26am Advance Directive Response Recorded Date/ Time Advance Directives No August 19 10:47am Advance Directive Response Recorded Date/ Time Advance Directives No August 19 9:47am Chief Complaint and Reason for Visit Chief Complaint mri check Chief Complaint mri check right ankle injury Chief Complaint N54.2 Chief Complaint isidro, -90 [facility] Obstructive sleep apnea Chief Complaint Obstructive sleep ap nai mri clearance Chief Complaint Obstructive sleep ap nai mri clearance Sleep apnea -90 day follow up Chief Complaint Obstructive sleep ap nai mri clearance Sleep apnea -90 day follow up k86.2 Assessments No Assessments Information Available Additional Source Comments (unrecognized sect ion and content) No Status Records FoundNo Status Records FoundNo Status Records FoundNo Status Records FoundNo Status Records FoundNo Status Records FoundNo Status Records Found INFORMATION SOURCE (unrecogn ized section and content) DATE CREATED AUTHOR 02/08/2020 [facility] DATE CREATED AUTHOR AUTHOR'S ORGANIZ ATION 09/30/2022 [facility] DATE CREATED AUTHOR AUTHOR'S ORGANIZ ATION 02/04/2023 [facility] [place] DATE CREATED AUTHOR AUTHOR'S ORGANIZ ATION 02/20/2023 [facility] DATE CREATED AUTHOR AUTHOR'S ORGANIZ ATION 04/16/2023 [facility] DATE CREATED AUTHOR AUTHOR'S ORGANIZ ATION 04/23/2023 [facility] DATE CREATED AUTHOR AUTHOR'S ORGANIZ ATION 05/01/2023 [facility] REASON FOR VISIT (unrecogniz ed section and content) Reason Comments Consult [facility] Reason Comments Received Outside Medical Records Patient Care team informatio n (unrecognized section and content) Team Status: Active Member Role Status Dates Mg London MD Primary Care Provider Active Team Status: Inactive Member Role Status Dates Missy Westfall PA-C Attending Provider Active Mg London MD Primary Care Provider Active Team Status: Inactive Member Role Status Dates Mg London MD Primary Care Provider Active Erwin Salazar MD Attending Provider Active Team Status: Inactive Member Role Status Dates Mg London MD Primary Care Provider Active Alanna Hardy DPM MS Attending Provider Active Missy Westfall PA-C Other Provider Active Team Status: Active Member Role Status Dates Sabino Cooper MD Primary Care Provider Active Team Status: Inactive Member Role Status Dates Gisele Brunson NP Attending Provider Active Sabino Cooper MD Primary Care Provider Active Team Status: Inactive Member Role Status Dates Sabino Cooper MD Primary Care Provider Active Erwin Salazar MD Attending Provider Active Team Status: Inactive Member Role Status Dates Sabino Cooper MD Primary Care Provider Active Inez Henderson MD Attending Provider Active Team Status: Inactive Member Role Status Dates Sabino Cooper MD Primary Care Provider Active Gisele Brunson NP Attending Provider Active Team Status: Inactive Member Role Status Dates Sabino Cooper MD Primary Care Provider Active JESSI ChavezC Attending Provider Active 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 Relationship Specialty Start Date End Date Anjali Ruby CNP [address] [facility] [place] [address] Referring Family Medicine 03/03/23 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[facility] the event this information is protected by the Federal Confidentiality of Alcohol and Drug Abuse Patient Records regulations: The Federal rules restrict any use of the information to criminally investigate or prosecute any alcohol or drug abuse patient.[facility] FOR RECORDS PERTAINING TO PATIENTS WHO ARE OR HAVE BEEN ENROLLED IN A CHEMICAL DEPENDENCY/SUBSTANCEABUSE PROGRAM, SOME INFORMATION MAY BE OMITTED. This clinical summary was aggregated from multiple sources. Caution should be exercised in using it in the provision of clinical care. This summary normalizes information from multiple sources, and as a consequence, information in this document may materially change the coding, format and clinical context of patient data. In addition, data may be omitted in some cases. CLINICAL DECISIONS SHOULD BE BASED ON THE PRIMARY CLINICAL RECORDS. [employer] [facility]. provides no warranty or guarantee of the accuracy or completeness of information in this document.
--- NOTE | 2023-05-20 12:39 | P.CN_ITS ---
Consult Note: HPI Data of Consult Patient: known to practice within the last 3 years Requesting Physician: Alexandra Trevizo NP Primary Care Provider: SABINO COOPER Consult Narrative Reason for consult: Procedure f/u Narrative: Jair Bennett a pleasant 82 year old male presents for evaluation of chronic low back pain. Recently underwent right lumbar 2,3 &4,5 facet medial branch block #1 80-90% immediate pain relief and functional improvement. Pain is now in right lower back and neck. Today rating pain 1/10 in low back and neck, up to 7-8/10 with activity. cc:: CC: Alexandra Trevizo NP Review of Systems 2 ROS0 Status of ROS 10 or more systems reviewed and unremark able except as noted in history and below Musculoskeletal Reports: back pain, neck pain and joint pain PFSH PFSH Medical History Surgical History H/O angioplasty ?Z98.62 - Peripheral vascular angioplasty status (ICD-10) H/O vasectomy ?Z98.52 - Vasectomy status (ICD-10) H/O neck surgery ?Z98.890 - Other specified postprocedural states (ICD-10) History of repair of inguinal hernia ?Z98.890 - Other specified postprocedural states (ICD-10) ?Z87.19 - Personal history of other diseases of the digestive system (ICD-10) History of prostatectomy ?Z90.79 - Acquired absence of other genital organ(s) (ICD-10) History of phacoemulsification of cataract of both eyes with intraocular lens implantation ?Z98.41 - Cataract extraction status, right eye (ICD-10) ?Z98.42 - Cataract extraction status, left eye (ICD-10) ?Z96.1 - Presence of intraocular lens (ICD-10) History of cardiac radiofrequency ablation ?Z98.890 - Other specified postprocedural states (ICD-10) History of tonsillectomy ?Z90.89 - Acquired absence of other organs (ICD-10) Social History Smoking status: Former smoker Meds Home Medications and Allergies Home Medications Medication Instructions Recorded Confirmed Type [place]-3 10/14/22 History amlodipine 5 mg tablet 5 mg PO QDAY 10/14/22 04/20/23 History aspirin 81 mg tablet,delayed 81 mg PO QDAY 10/14/22 04/20/23 History release (Adult Low Dose Aspirin) butalbital 50 mg-acetaminophen 300 1 cap PO Q4H PRN pain 10/14/22 04/20/23 History mg-caffeine 40 mg-codeine 30 mg cap clopidogrel 75 mg tablet (Plavix) 75 mg PO QDAY 10/14/22 04/20/23 History diphenhydramine 25 1 tab PO ONCE 10/14/22 04/20/23 History mg-acetaminophen 500 mg tablet (Tylenol PM Extra Strength) dorzolamide (PF) 2 % (PF) eye drops 1 drp ophthalmic (eye) TID 10/14/22 04/20/23 History fluticasone propionate 50 1 spray intranasal QDAY PRN nasal 10/14/22 04/20/23 History mcg/actuation nasal congestion spray,suspension (24 Hour Allergy Relief) furosemide 20 mg tablet (Lasix) 20 mg PO QDAY 10/14/22 04/20/23 History irbesartan 300 mg tablet (Avapro) 300 mg PO QDAY 10/14/22 04/20/23 History isosorbide mononitrate 30 mg PO BID 10/14/22 04/20/23 History latanoprost 0.005 % eye drops 1 drp ophthalmic (eye) QDAY 10/14/22 04/20/23 History loperamide 2 mg capsule 2 mg PO Q2H PRN loose stool 10/14/22 04/20/23 History (Anti-Diarrheal (loperamide)) metformin 500 mg tablet 500 mg PO BID 10/14/22 04/20/23 History multivitamin (Daily Multi-Vitamin 1 tab PO QDAY 10/14/22 04/20/23 History tablet) omeprazole 40 mg capsule,delayed 40 mg PO QDAY 10/14/22 04/20/23 History release rosuvastatin 10 mg tablet (Crestor) 10 mg PO QDAY 10/14/22 04/20/23 History sotalol 40 mg PO BID 10/14/22 04/20/23 History tizanidine 4 mg tablet 4 mg PO ONCE 05/31/23 12/05/23 History Allergies Allergy/AdvReac Type Severity Reaction Status Date / Time adhesive Allergy Mild Verified 04/20/23 09:53 niacin Allergy Mild Verified 04/20/23 09:53 [From [facility]ias[facility] Extended-Release] Exam Constitutional Documenting provider has reviewed patient's vital signs: yes Common normals: no apparent distress, oriented x3, healthy appearing, alert and well nourished General appearance: cooperative HENMT Common normals: normocephalic, hearing grossly normal bilaterally and moist oral mucous membranes Head and scalp: normocephalic Eye Common normals: PERRL Pupil: PERRL Neck & C-Spine General: normal visual inspection Cervical spine: cervical ROM abnormal and pain with cervical ROM Chest Common normals: inspection of chest normal Respiratory Common normals: normal respiratory effort, no retractions and no use of accessory muscles Back & Pelvis Lumbar spine/lower back: ROM limited and pain with ROM Other: predominately axial low back pain on right side over l2-l5 without radiculopathy facet loading positive on right side Extremity Common normals: normal to inspection and full ROM Right lower extremity: hip joint Other: positive leg roll/internal rotation of left hip negative tenderness over right GTB, no pain over IT band Extremity image (back): 2 1. facet pain and positive loading 2. tenderness to palpation intensified with ambulation Neuro Common normals: oriented x3, CN's II-XII intact bilaterally, moves all extremities, no focal motor deficits, no sensory deficits noted and deep tendon reflexes 2+ bilaterally Sensorium/orientation: alert Gait (neuro): antalgic Motor exam: strength 5/5 throughout and no movement abnormalities noted Psych Common normals: mental status grossly normal, thought process normal, cooperative, affect normal, speech normal and activity/motor behavior normal Speech: normal speech Thought process: normal thought process Assessment and Plan Assessment and Plan (1) Lumbar spondylosis: Assessment and Plan: The patient has had over 3 months of moderate to severe back pain with functional impairment and inadequate response to conservative care including NSAIDS (unless there are contraindication such as concurrent blood thinners), multiple oral or topical pain medications, and home exercise program/physical therapy.? Patient has completed >6 weeks of guided home exercise program and/or formal physical therapy program without relief of their symptoms.? I have reviewed the imaging of the lumbar spine and no red flags were identified.? The imaging reveals radiographic findings consistent with lumbar spondylosis We discussed the risks and benefits of the procedure with the patient, and we are NOT planning on using sedation as outlined in the guidelines from Medicare unless there is a documented reason that sedation would be strongly recommended.?? ?The procedure will be completed with fluoroscopic guidance.? (2) Chronic neck pain: (3) Cervical spondylosis: (4) Failed cervical fusion: (5) Hx of care home use of blood thinners: (6) Muscle spasm: Assessment and Plan: consider right gluteal TPI if pain persists, acute onset at this time (7) Right hip pain: Assessment and Plan: positive internal leg roll, pain intensified with ambulation Plan update xray of cervical spine proceed with facet block #2 at right L2/3 4/5 facets working towards thermal RFA continue HEP as tolerated continue current medications and topical cream, tolerating well without side effects f/u 1 week after MBB #2
== END 2023-05-20 12:12 | disposition home or self-care (01) ==
LOC: PM 12:19
PROVIDERS: PCP Family Medicine; Visit Provider Nurse Practitioner
DX: M47.812 Spondylosis without myelopathy or radiculopathy, cervical region (principal); M47.816 Spondylosis without myelopathy or radiculopathy, lumbar region; M54.2 Cervicalgia; G89.29 Other chronic pain; M62.838 Other muscle spasm; M25.551 Pain in right hip; Z79.899 Other long term (current) drug therapy
CPT/HCPCS: 72050; G0463

== ENCOUNTER 2023-05-20 12:52 | Outpatient (OUT) | payer MEDICARE, SELFPAY ==
--- NOTE | 2023-05-20 12:58 | XR_ITS ---
The [address] [address] Patient Name: JEREMIE GROSS MRN: [id number] date: 1940 Sex: M Assigned Patient Location: [facility] Current Patient Location: Accession/Order Number: [id number] Exam Date: 05/20/2023 13:05 Report Date: 05/21/2023 07:29 At the request of: ANTONIO ROQUE Procedure: XR cervical spine 5V EXAMINATION: XR cervical spine 5V HISTORY: Cervical Spondylosis COMPARISON: 12/27/2017 FINDINGS: BONES: Normal alignment with no acute fracture or spondylolisthesis. Anterior fusion C3-C5 with no mechanical failure. Moderate degenerative spondylosis and facet osteoarthropathy DISC SPACES: Interbody spacers C3-C5 PARASPINOUS: Negative. No paraspinous abnormality is seen. OTHER: Negative. XR/XR cervical spine 5V IMPRESSION: Moderate degenerative changes with anterior fusion Electronically authenticated by: ERWIN FALCON Date: 05/21/2023 07:29
== END 2023-05-20 12:53 | disposition home or self-care (01) ==
LOC: RAD 12:55
PROVIDERS: PCP Family Medicine; Visit Provider Nurse Practitioner
DX: M47.812 Spondylosis without myelopathy or radiculopathy, cervical region (principal)
CPT/HCPCS: 72050

== ENCOUNTER 2023-06-08 08:31 | Day surgery (SDC) | payer MEDICARE, SELFPAY ==
--- OUTSIDE RECORDS SUMMARY | 2023-06-08 08:34 | XMS_ITS | CCD ---
Author Name Unknown Address [address] [place] [address] Organization [facility] Care Team Providers Care Dormitory Keeper Name Role Phone ELTAHAWY, EHAB A Admitting Unavailable ELTAHAWY, EHAB A Attending Unavailable SABINO COOPER Referring Unavailable SABINO COOPER Primary Care Unavailable Param Cosme Attending Provider [phone] Sabino Cooper Primary Care Provider [phone] Param Cosme Attending Provider Sabino Cooper Primary Care Provider Leti Garcia Unavailable MG [place] Primary Care Physician KAT Westfall Attending Provider MD Mg [place] Primary Care Provider KAT Westfall Attending Provider MD Mg [place] Primary Care Provider MD Erwin Salazar Attending Provider [phone] Erwin Salazar Unavailable MARCE [place] Attending Provider KAT Westfall Other Provider Sabino Cooper Primary Care Physician Griselda Pennington Unavailable ALANNA [place] Admitting Unavailable ALANNA [place] Attending Unavailable LITA, DR MG Omalley Primary Care Unavailable CUBA, DR ERWIN Bell Consulting Unavailable ALANNA [place] [...] SUSANA Attending Unavailable ABDON, SUSANA Admitting Unavailable NADERESon, DR MG Omalley Primary Care Unavailable LAZO [...] vailable LAKSHMIPATHY ., NARENDRANATH Admitting Lisset vailable LITA, DR MG Omalley Primary Care Unavailable LAKSHMIPATHY ., TESSENDMARIANNA Attending Lisset vailable NADERESon, DR MG Omalley Primary Care Unavailable HALKER [...] NADERESon, DR MG Omalley Primary Care Unavailable ANTONY, ALANNA Araiza Admitting Unavailable HIGHLELLA, ALANNA Araiza Attending Unavailable NADERER, DR MG Omalley Primary Care Unavailable HIGHLANDER, ALANNA Araiza Attending Unavailable HIGHLALANNA JARAMILLO Admitting Unavailable NADERER, DR MG Omalley Primary Care Unavailable MISC, DR BECKER Attending Unavailable MAGYWSHAIKH Jane SULLIVAN Consulting Unavailable MISC, DR BECKER Admitting Unavailable NADERER, DR MG Omalley Primary Care Unavailable CUBA, DR ERWIN Bell Consulting Unavailable ELTAHAWY, DR CAO Admitting Unavailable ELTAHAWY, DR CAO Attending Unavailable NADERER, DR MG Omalley Primary Care Unavailable ELTAHAWY, DR CAO Consulting Unavailable REINECK, DR EDY Da Silva Admitting Unavailabl e NADERER, DR MG Omalley Primary Care Unavailable REINECK, DR EDY Da Silva Consulting Unavailabl e REINECK, DR EDY Da Silva Attending Unavailabl e NEFCY, ALANNA Consulting Unavailable BRITTONIFEOMA Admitting Unavailable NADERER, DR MG Omalley Primary Care Unavailable BRTITONIFEOMA Attending Unavailable HIGHLANDER, ALANNA Araiza Attending Unavailable HIGHLELLA, ALANNA Araiza Admitting Unavailable NADERER, DR MG Omalley Primary Care Unavailable DAISHA Brunson Attending Provider MD Sabino Cooper Primary Care Provider [phone] Gisele Brunson Unavailable MD Erwin Salazar Attending Provider [phone] MD Sabino Cooper Primary Care Provider MD Inez Henderson Attending Provider DAISHA Coburn Attending Provider [phone] FABIO Ruby Attending Provider Flori GARZA Anjali Unavailable VAISHALI PRINGLE Attending Unavailable Anjali Ruby Attending Unavailable Sabino Cooper Attending Unavailable Sabino Cooper Attending Unavailable Anjali Ruby Attending Unavailable Anjali Ruby Attending Unavailable Sabino Cooper Referring Unavailable Anjali Ruby Attending Unavailable Yajaira Roque Attending Unavailable Sabino Cooper Attending Unavailable Sabino Cooper Attending Unavailable Gordy Powers Admitting Unavailable Gordy Powers Attending Unavailable Gordy Powers Referring Unavailable Sabino Cooper Attending Unavailable Sabino Cooper Attending Unavailable Sabino Cooper Attending Unavailable Sabino Cooper Attending Unavailable Flori, Anjali A Referring Unavailable Flori, Anjali A Admitting Unavailable Flori, Anjali A Attending Unavailable Flori, Anjali A Admitting Unavailable Flori, Anjali A Attending Unavailable Sabino Cooper Admitting Unavailable Sabino Cooper Attending Unavailable Gordy Sánchez Attending Unavailable Dequan GALICIA Admitting Unavailable Dequan GALICIA Attending Unavailable Maricarmen GALICIArick R Referring Unavailable Flori, Anjali A Attending Unavailable MARGARET ARELLANO Attending Unavailable DANIEL PATEL Referring Unavailable DANIEL PATEL Referring Unavailable DANIEL PATEL Referring Unavailable JOSE R ALEXANDER Attending Unavailable MD Sabino Cooper Primary Care Provider [phone] DAISHA Brunson Attending Provider [phone] Inez Henderson Admitting Unavailable Inez Henderson Attending Unavailable Sabino Cooper Primary Care Unavailable Boy, Gisele Admitting Unavailable BrunsonWhitgy Attending Unavailable Sabino Cooper Primary Care Unavailable Sabino Cooper Primary Care Unavailable Flori, Anjali Ifeoma Admitting Unavailable Flori, Anjali Ifeoma Attending Unavailable Brunson, Gisele Admitting Unavailable Brunson, Gisele Attending Unavailable Sabino Cooper Primary Care Unavailable Lowemely, Missy Admitting Unavailable Missy [place]fall Attending Unavailable Lita, Mg Primary Care Unavailable Erwin Salazar Admitting Unavailable Erwin Salazar Attending Unavailable Mg [place] Primary Care Unavailable Malou, Missy Consulting Unavailable Alanna [place] Admitting Unavailable Alanna [place] Attending Unavailable Naderer, Mg Primary Care Unavailable Lowe, Missy Admitting Unavailable Lowe, Missy Attending Unavailable Naderer, Mg Primary Care Unavailable Brunson, Gisele Admitting Unavailable Brunson, Gisele Attending Unavailable Sabino Cooper Primary Care Unavailable Erwin Salazar Admitting Unavailable Erwin Salazar Attending Unavailable Sabino Cooper Primary Care Unavailable Unavailable Unavailable Unavailable Allergies Allergy Classification Reported Allergen(s) Allergy Type Date of Onset Reaction(s) Facility (3 sources) Desonide Drug Allergy 0 [facility] Repository (1 source) Niacin Drug Allergy 0 [facility] Repository (6 sources) Adhesive agent Drug allergy rash [facility] Other (13 sources) Niacin; Translations: [niacin] Drug Allergy 9 hives, Itching (finding), Itching, Unknown [facility] (10 sources) Adhesive bandage; Translations: [Adhesive Bandage] Allergy to substance Eruption of skin (disorder) [facility] (5 sources) Niacin Drug Allergy hives [facility] Other (2 sources) Niaspan Starter Pack Drug allergy (disorder) 8 [facility] Repository (3 sources) Adhesive Tape-Silicones; Translations: [ADHESIVE TAPE-SILICONES] Drug Allergy 9 Rash [facility] (1 source) Niacin; Translations: [Niaspan ER] Drug Allergy [facility] Repository Medications Current Medications Medication Drug Class(es) Dates Sig (Normalized) Sig (Original) Albuterol (Eqv-ProAir HFA) 90 mcg/inh inhalation aerosol (7 sources) Start: 11-09-2022 Albuterol (Eqv-ProAir HFA) 90 mcg/inh inhalation aerosol See Instructions, 17 gm, Refill(s) 6, USE 2 INHALATIONS BY MOUTH EVERY 6 HOURS, [facility] ([facility]), 163, cm, 11/04/22 15:03:00 EDT, Height/Length Dosing, 76, kg, 11/04/22 15:03:00 EDT, Weight Dosing Start Date: 11/09/22 Status: Ordered amLODIPine 5 mg oral tablet (17 sources) Dihydropyridine Calcium Channel Gabo Start: 04-24-2020 take 1 tablet by mouth once daily amLODIPine 5 mg Tab 5 mg = 1 tab(s), Oral, Daily, Refills(s) 0, High blood pressure Start Date: 04/24/20 Status: Ordered Comment on above: Take 5 mg by mouth. {1 (Ascorbic Acid 7540 MG / POLYETHYLENE GLYCOL 3350 41112 MG / Potassium Chloride 1200 MG / Sodium Ascorbate 66042 MG / Sodium Chloride 3200 MG Powder for Oral Solution) / 1 (POLYETHYLENE GLYCOL 3350 255891 MG / Potassium Chloride 1000 MG / Sodium Chlori (5 sources) Osmotic Laxative, Vitamin C Start: 12-15-2022 Plenvu oral powder for reconstitution See Instructions, 1 EA, Refill(s) 0, [id number] 163, cm, 12/15/22 12:03:00 EDT, Height/Length Dosing, 73.3, kg, 12/15/22 12:03:00 EDT, Weight Dosing Start Date: 12/15/22 Status: Ordered Aspir 81 (9 sources) Start: 04-24-2020 take 81 mg by mouth once daily Aspir 81 81 mg, Oral, Daily, Refills(s) 0, Prophylaxis Start Date: 04/24/20 Status: Ordered Start: 04-24-2020 take 1 mg by mouth once daily Aspir 81 mg, Oral, Daily, Refills(s) 0, Prophylaxis Start Date: 04/24/20 Status: Ordered Aspir-81 (5 sources) Aspir-81 Active azithromycin 250 mg oral tablet (4 sources) Macrolide Antimicrobial Start: 023 Azithromycin 250 MG 2 tablet on the first day, then 1 tablet daily for 4 days Orally Once a day for 5 day(s) September, Active Butalbital-Acetaminop hen (5 sources) Butalbital-Aceta minop hen Active cephalexin 250 mg oral capsule (1 source) Cephalosporin Antibacterial Start: 022 take 1 capsule by mouth twice daily Keflex 250 mg Cap 250 mg = 1 cap(s), Oral, BID, Start 3 days before procedure, # 10 cap(s), Refills(s) 0, Pharmacy: [id number], 167, cm, 04/27/22 8:46:00 EST, Height/Length Dosing, [...] Weight Dosing Start Date: 08/24/22 Status: Ordered cholestyramine resin 4000 mg powder for oral suspension (1 source) Bile Acid Sequestrant Start: End: take 4 g by mouth once daily Questran 4 g/9 g oral powder 4 gm, Oral, Daily, X 90 day(s), # 90 packet(s), Refills(s) 0, Pharmacy: [facility] #[id number], 163, cm, 05/25/23 12:33:00 EST, Height/Length Dosing, 79.8, kg, 05/25/23 12:33:00 EST, Weight Dosing Start Date: 05/25/23 Stop Date: 08/23/23 Status: Ordered clopidogrel 75 mg oral tablet (17 sources) P2Y12 Platelet Inhibitor Start: take 1 tablet by mouth once daily Plavix 75 mg Tab 75 mg = 1 tab(s), Oral, Daily, Refills(s) 0, Blood Thinner Start Date: 04/24/20 Status: Ordered Dicyclomine (3 sources) Anticholinergic Dicyclomine HCl Active dorzolamide (15 sources) Carbonic Anhydrase Inhibitor Start: take 1 drop(s) into the eye(s) twice daily dorzolamide ophthalmic 2% solution 1 drop(s), OPTH, BID, Refill(s) 0, each eye Start Date: 04/24/20 Status: Ordered Dorzolamide HCl 2 % Ophthalmic for 90 Active Dorzolamide HCl 2 % Ophthalmic for 90 Active Dorzolamide HCl 2 % Ophthalmic for 90 Active Fish Oils (7 sources) Start: 11-04-2022 Creighton-3 Fish O il Oral, Daily, Refills(s) 0, Prophylaxis Start Date: 11/04/22 Status: Ordered Start: 11-04-2022 Creighton-3 Fish O il Oral, Daily, Refills(s) 0 Start Date: 11/04/22 Status: Ordered fluticasone 0.05 mg/inh Nasal Downing (1 source) Start: 04-24-2020 fluticasone 0. 05 mg/inh Nasal Downing Daily, Refill(s) 0 Start Date: 04/24/20 Status: Ordered furosemide 20 mg oral tablet (17 sources) Loop Diuretic Start: 04-24-2020 take 1 tablet by mouth once daily furosemide 20 mg Tab 20 mg = 1 tab(s), Oral, Daily, Refills(s) 0, diuretic/water pill Start Date: 04/24/20 Status: Ordered Furosemide Activ e Comment on above: Take 20 mg by mouth. gabapentin 600 mg oral tablet (17 sources) Anti-epileptic Agent Start: 04-24-2020 take 1 tablet by mouth three times daily gabapentin 600 mg Tab 600 mg, Oral, TID, # 270 EA, Refills(s) 0, Pharmacy: [facility], 163, cm, 02/25/23 13:29:00 EDT, Height/Length Dosing, 78.8, kg, 02/25/23 13:29:00 EDT, Weight Dosing Start Date: 03/09/23 Status: Ordered Gabapentin 300 M G Oral for 90 Active Comment on above: Take 1 tablet by peggy th. irbesartan 300 mg oral tablet (17 sources) Angiotensin 2 Receptor Gabo Start: 0 take 1 tablet by mouth once daily irbesartan 300 mg Tab 300 mg = 1 tab(s), Oral, Daily, Refills(s) 0, High blood pressure Start Date: 04/24/20 Status: Ordered Comment on above: Take 300 mg by mouth . 24 hr isosorbide mononitrate 30 mg extended release oral tablet (17 sources) Nitrate Vasodilator Start: 0 take 30 mg by mouth once daily in the morning isosorbide mononitrate 30 mg, Oral, qAM, Refills(s) 0, High blood pressure Start Date: 04/24/20 Status: Ordered Comment on above: Take 30 mg by mouth. loperamide hydrochloride 2 mg oral tablet (17 sources) Opioid Agonist Start: 1 take 1 tablet by mouth every four hours loperamide 2 mg Tab 2 mg = 1 tab(s), Oral, q4hr, Refills(s) 0, Diarrhea Start Date: 02/21/21 Status: Ordered Loperamide A-D A ctive Comment on above: Take 2 mg by mouth. Magnesium (5 sources) Magnesium Active metFORMIN hydrochloride 500 mg oral tablet (17 sources) Biguanide Start: 04-24-2020 take 1 mg by mouth twice daily metformin 500 mg ER Tab mg tab(s), Oral, BID, Refills(s) 0, High blood sugar Start Date: 04/24/20 Status: Ordered metFORMIN HCl ER 500 MG Oral for 90 Active Comment on above: Take 500 mg by mouth . methylPREDNISolone 4 mg oral tablet (4 sources) Corticosteroid Start: 023 Medrol 4 MG as directed Orally as directed for 6 days September, Active Multivitamin preparation (5 sources) Multivitamin Active Multivitamin, Therapeutic w/ Minerals (9 sources) Start: 020 Multivitamin, Therapeutic w/ Minerals Oral, Daily, Refill(s) 0, Prophylaxis Start Date: 04/24/20 Status: Ordered Creighton 3 (5 sources) Creighton 3 Active omeprazole 40 mg delayed release oral capsule (16 sources) Proton Pump Inhibitor Start: 023 take 1 capsule by mouth once daily omeprazole 40 mg Cap-DR See Instructions, TAKE 1 CAPSULE BY MOUTH DAILY, # 90 cap(s), Refills(s) 3, Pharmacy: [facility] ([facility]), 163, cm, 12/15/22 12:03:00 EDT, Height/Length Dosing, 73.3, kg, 12/15/22 12:03:00 EDT, Weight Dosing Start Date: 01/06/23 Status: Ordered Start: 08-24-2022 take 1 capsule by [facility] once daily omeprazole 40 mg Cap-DR 40 mg, Oral, Daily, # 90 EA, Refills(s) 0, Pharmacy: [facility] ([facility] ), 167.6, cm, 08/24/22 8:10:00 EDT, Height/Length Dosing, 83.4, kg, 08/24/22 8:10:00 EDT, Weight Dosing Start Date: 08/24/22 Status: Ordered Start: 04-27-2022 omeprazole Ora l, Daily, Refills(s) 0 Start Date: 04/27/22 Status: Ordered Omeprazole Activ e Comment on above: Take 40 mg by mouth. pantoprazole 20 mg delayed release oral tablet (7 sources) Proton Pump Inhibitor Start: 1 take 1 mg by mouth once daily Pantoprazole [address] Tab mg tab(s), Oral, Daily, Refills(s) 0 Start Date: 10/31/20 Status: Ordered Pantoprazole Sod ium Not-Taking/PRN Pantoprazole Sod ium Not-Taking Pantoprazole Sod ium Active Psyllium (3 sources) Start: 03-10-2023 Metamucil Refi lls(s) 0, Constipation Start Date: 03/10/23 Status: Ordered Start: 03-10-2023 Metamucil Refi lls(s) 0 Start Date: 03/10/23 Status: Ordered rosuvastatin calcium 10 mg oral tablet (18 sources) HMG-CoA Reductase Inhibitor Start: 04-24-2020 take 1 tablet by mouth once daily rosuvastatin 10 mg Tab See Instructions, TAKE 1 TABLET BY MOUTH DAILY, # 90 tab(s), Refills(s) 3, Pharmacy: [facility] ([facility]), 163, cm, 11/04/22 15:03:00 EDT, Height/Length Dosing, 76, kg, 11/04/22 15:03:00 EDT, Weight Dosing Start Date: 11/10/22 Status: Ordered Crestor Active Comment on above: Take 10 mg by mouth. tiZANidine 4 mg oral tablet (16 sources) Central alpha-2 Adrenergic Agonist Start: 02-21-2021 take 1 tablet by mouth once daily tiZANidine 4 mg Tab 4 mg = 1 tab(s), Oral, Daily, Refills(s) 0, Spasm Start Date: 02/21/21 Status: Ordered tiZANidine HCl ( ZANAFLEX) 4 mg capsule Take 4 mg by mouth. 0 Active tiZANidine HCl A ctive Comment on above: Take 4 mg by mouth. traZODone hydrochloride 50 mg oral tablet (1 source) Serotonin Reuptake Inhibitor Start: take 1 mg by mouth once daily at bedtime traZODONE 50 mg Tab mg tab(s), Oral, Once a day (at bedtime), Refills(s) 0 Start Date: 10/31/20 Status: Ordered Tylenol PM Extra Strength (5 sources) Tylenol PM Extra Strength Active Completed/Discontinued Medications Medication Drug Class(es) Dates Sig (Normalized) Sig (Original) acetaminophen 325 mg / butalbital 50 mg / caffeine 40 mg oral tablet (8 sources) Barbiturate, Central Nervous System Stimulant, Methylxanthine Start: 12-15-2022 take 1 tablet by mouth every four hours as needed acetaminophen 325 mg-caffeine 40 mg-butalbital 50 mg (FIORICET) per tablet Take 1 tablet by mouth every 4 hours as needed. 0 12/15/2022 Active Start: 12-15-2022 APAP/butalbita l/caffeine 325 mg-50 mg-40 mg Tab Refill(s) 0, Headache Start Date: 12/15/22 Status: Ordered Comment on above: Take 1 tablet by peggy th every 4 hours as needed. aspirin 81 mg delayed release oral tablet (2 sources) Platelet Aggregation Inhibitor, Nonsteroidal Anti-inflammatory Drug aspirin, enteric coated (ASPIRIN, ENTERIC COATED) 81 mg EC tablet Take 81 mg by mouth. 0 Active Comment on above: Take 81 mg by mouth. dexamethasone 6 mg oral tablet (6 sources) Corticosteroid Start: 11-30-19 take 1 tablet by mouth every twenty-four hours dexAMETHasone 6 MG 1 tablet Orally Once a day for 5 day(s) Nov, Not-Taking/PRN Docusate (5 sources) Docusate Sodium Not-Taking/PRN Docusate Sodium Not-Taking Docusate Sodium Active fluticasone propionate 0.05 mg/actuat metered dose nasal spray (19 sources) Corticosteroid Start: 08-24-2022 fluticasone (F LONASE) 50 mcg/actuation nasal spray 1 Downing. 0 08/24/2022 Active Start: 08-24-2022 take 1 spray(s) nasa l route twice daily Flonase 0.05 mg/inh Downing 1 spray(s), Nasal, BID, 16 gram, Refill(s) 0, each nostril, [facility] ([facility] ), 167.6, cm, 08/24/22 8:10:00 EDT, Height/Length Dosing, 83.4, kg, 08/24/22 8:10:00 EDT, Weight Dosing Start Date: 08/24/22 Status: Ordered Start: 08-23-2022 Start: 04-24-2020 take 50 ug by inhala tion twice daily fluticasone propionate 50 mcg, Inhalation, BID, Refills(s) 0 Start Date: 04/24/20 Status: Ordered Fluticasone Prop ionate 50 MCG/ACT Nasal for 30 Active Comment on above: 1 Downing. glimepiride 2 mg oral tablet (3 sources) Sulfonylurea Start: 01-18-2019 glimepiride (AMARYL) 2 mg tablet Take 2 mg by mouth. 0 01/19/2019 Active Comment on above: Take 2 mg by mouth. latanoprost 0.05 mg/ml ophthalmic solution (18 sources) Prostaglandin Analog Start: 05-19-2023 latanoprost Opth 0.005% Janee Refill(s) 0, 10 mL, 0 Refill(s) Start Date: 05/19/23 Status: Ordered Start: 04-24-2020 latanoprost op hthalmic qPM, Refill(s) 0, Dry eyes Start Date: 04/24/20 Status: Ordered Start: 04-24-2020 latanoprost op hthalmic qPM, Refill(s) 0 Start Date: 04/24/20 Status: Ordered Latanoprost 0.00 5 % Ophthalmic for 90 Active take 1 drop(s) into the eye(s) once daily at bedtime latanoprost (XALATAN) 0.005 % ophthalmic solution 1 Drop daily at bedtime. 0 Active Latanoprost 0.00 5 % Ophthalmic for 90 Active Comment on above: 1 Drop daily at bedt olivia. Prazosin (5 sources) alpha-Adrenergic Gabo Prazosi n HCl Not-Taking/PRN Prazosin HCl Not -Taking Prazosin HCl Act rosa sotalol hydrochloride 80 mg oral tablet (17 sources) Antiarrhythmic Start: 04-24-2020 sotalol (BETAP KARRI) 80 mg tablet Take 80 mg by mouth. 0 04/24/2020 Active Start: 04-24-2020 take 0.5 tablet by m outh twice daily sotalol 80 mg Tab 0.5 tab, Oral, BID, Refills(s) 0, High blood pressure Start Date: 04/24/20 Status: Ordered Comment on above: Take 80 mg by mouth. sucralfate 1000 mg oral tablet (14 sources) Aluminum Complex Start: 12-15-2022 sucralfate (CARAFATE) 1 gram tablet Take 1 g by mouth. 0 12/15/2022 Active Start: 12-15-2022 sucralfate 1 g Tab Refills(s) 0, Control of stomach acid Start Date: 12/15/22 Status: Ordered Start: 04-27-2022 sucralfate 1 g Tab gm tab(s), Oral, QIDACHS, Refills(s) 0 Start Date: 04/27/22 Status: Ordered Sucralfate Not-T aking/PRN Sucralfate Not-T aking Sucralfate Activ e Comment on above: Take 1 g by mouth. temazepam 15 mg oral capsule (6 sources) Benzodiazepine take 1 capsule by mouth every twenty-four hours Temazepam 15 MG 1 capsule at bedtime as needed Orally Once a day Not-Taking/PRN zolpidem tartrate 5 mg oral tablet (2 sources) gamma-Aminobutyric Acid-ergic Agonist zolpidem (AMBIEN) 5 mg tablet Take 5 mg by mouth. 0 Active Comment on above: Take 5 mg by mouth. zonisamide 25 mg oral capsule (6 sources) Anti-epileptic Agent Start: 3 zonisamide (ZONEGRAN) 25 mg capsule Problems Active Problems Problem Classification Problem Date Documented Da te Episodic/Chronic Abdominal pain (20 sources) Lower abdominal pain; Translations: [Right flank pain] Onset: 3 04-25-2020 Episodic Cancer of prostate (14 sources) History of malignant neoplasm of prostate; Translations: [Personal history of malignant neoplasm of prostate] Onset: 2 03-21-2021 Episodic Conduction disorders (14 sources) Cardiac pacemaker in situ; Translations: [Presence of cardiac pacemaker] Onset: 2 04-24-2020 Chronic Coronary atherosclerosis and other heart disease (9 sources) Coronary arteriosclerosis; Translations: [Atherosclerotic heart disease of [place] coronary artery without angina pectoris] Onset: 2 Chronic Diabetes mellitus with complications (11 sources) Neuropathy due to diabetes mellitus; Translations: [Autonomic neuropathy due to type 2 diabetes mellitus] Onset: 2 04-24-2020 Chronic Diabetes mellitus without complication (10 sources) Diabetes mellitus; Translations: [Type 2 diabetes mellitus without complication] Onset: 3 04-24-2020 Chronic Disorders of lipid metabolism (13 sources) Hypercholesterolemia; Translations: [Pure hypercholesterolemia, unspecified] Onset: 2 04-24-2020 Chronic Esophageal disorders (17 sources) Gastroesophageal reflux disease with apnea; Translations: [Gastro-esophageal reflux disease without esophagitis] Onset: 3 04-24-2020 Chronic Essential hypertension (18 sources) Hypertensive disorder; Translations: [Essential hypertension] Onset: 2 04-24-2020 Chronic Gastroduodenal ulcer (except hemorrhage) (9 sources) Peptic ulcer 10-31-2020 Chronic Genitourinary symptoms and ill-defined conditions (20 sources) Incontinence; Translations: [Incontinence without sensory awareness] 04-27-2022 Chronic Glaucoma (9 sources) Glaucoma 04-24-2020 Chronic Heart valve disorders (2 sources) Nonrheumatic mitral (valve) insufficiency; Translations: [Nonrheumatic mitral (valve) insufficiency] Onset: 2 Chronic Inflammatory conditions of male genital organs (9 sources) Prostatitis 04-27-2022 Episodic Lymphadenitis (4 sources) Lymphadenopathy 02-15-2023 Episodic Neoplasms of unspecified nature or uncertain behavior (2 sources) Benign neoplasm of pancreas; Translations: [Neoplasm of unspecified behavior of digestive system] 04-02-2023 Episodic Nonspecific chest pain (13 sources) Chest wall pain; Translations: [Other chest pain] Onset: 3 02-21-2021 Episodic Nutritional deficiencies (10 sources) Vitamin D deficiency; Translations: [Vitamin D deficiency, unspecified] Onset: 2 04-24-2020 Chronic Osteoarthritis (9 sources) Osteoarthritis 04-24-2020 Chronic Other aftercare (1 source) Other custodial (current) drug therapy; Translations: [OTH [facility] CURRENT DRUG THERAPY] Onset: 3 Episodic Other aftercare (1 source) senior care (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; Translations: [[place] [facility] CURRENT USE OF ASPIRIN] Onset: 3 Episodic Other aftercare (1 source) senior care (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 of antithrombotics/antipl atelets; Translations: [[facility] ANTITHROMBOT/ANTIPLATL ETS] Onset: 3 Episodic Other aftercare (1 source) senior care (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 of oral hypoglycemic drugs; Translations: [[place] [facility] USE ORAL HYPOGLYCEMIC DX] Onset: 3 Episodic Other circulatory disease (1 source) Raynaud's syndrome without gangrene; Translations: [RAYNAUDS SYNDROME WITHOUT GANGRENE] Onset: 2 Chronic Other gastrointestinal disorders (1 source) Intestinal malabsorption; 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] Onset: 4 Chronic Other gastrointestinal disorders (1 source) Heartburn 10-31-2020 Episodic Other gastrointestinal disorders (9 sources) Dysphagia; Translations: [Dysphagia, unspecified] Onset: 3 12-15-2022 Episodic Other gastrointestinal disorders (6 sources) Hard stool 12-15-2022 Episodic Other gastrointestinal disorders (7 sources) Urgent desire for stool; Translations: [Fecal urgency] Onset: 3 12-15-2022 Episodic Other gastrointestinal disorders (1 source) Digestive system finding; Translations: [Other specified symptoms and signs involving the digestive system and abdomen] Onset: 3 Episodic Other gastrointestinal disorders (4 sources) Irregular bowel habits 02-25-2023 Episodic Other gastrointestinal disorders (2 sources) Abnormal feces; Translations: [Other fecal abnormalities] Onset: 3 Episodic Other gastrointestinal disorders (3 sources) Loose stool 03-10-2023 Episodic Other gastrointestinal disorders (1 source) Non-infective diarrhea 05-25-2023 Episodic Other lower respiratory disease (3 sources) Apnea, not elsewhere classified Episodic Other nervous system disorders (5 sources) Polyneuropathy associated with another disorder; Translations: [Polyneuropathy in diseases classified elsewhere] Chronic Other nervous system disorders (1 source) 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 Other nervous system disorders (1 source) Other chronic pain; Translations: [OTHER CHRONIC PAIN] Onset: 2 Chronic Other nervous system disorders (8 sources) Numbness of hand 08-24-2022 Episodic Other non-traumatic joint disorders (4 sources) Other instability, right ankle; Translations: [OTHER INSTABILITY RIGHT ANKLE] Onset: 3 Episodic Other nutritional; endocrine; and metabolic disorders (9 sources) Body mass index 30+ - obesity 02-21-2021 Chronic Other screening for suspected conditions (not mental disorders or infectious disease) (1 source) Screening for malignant neoplasm of colon done; Translations: [Encounter for screening for malignant neoplasm of colon] Onset: 3 Episodic Other skin disorders (4 sources) Mass of neck 02-15-2023 Episodic Otitis media and related conditions (4 sources) Otitis media 02-15-2023 Episodic Phlebitis; thrombophlebitis and thromboembolism (1 source) Personal history of other venous thrombosis and embolism; Translations: [PERS HX OTH VENOUS THROMBOSIS AND EMBO] Onset: 3 Episodic Pneumonia (except that caused by tuberculosis or sexually transmitted disease) (1 source) Pneumonia (except that caused by tuberculosis or sexually transmitted disease); Translations: [PNEUMONIA D/T CORONAVIRUS DIS 2019] Onset: 3 Residual codes; unclassified (9 sources) Sleep apnea 04-24-2020 Chronic Residual codes; unclassified (5 sources) Obstructive sleep apnea syndrome; Translations: [Obstructive sleep apnea (adult) (pediatric)] Chronic Residual codes; unclassified (5 sources) Daytime somnolence; Translations: [Other hypersomnia] Chronic Residual codes; unclassified (4 sources) Obstructive sleep apnea (adult) (pediatric) Chronic [...] ORGANS] Onset: 3 Episodic Residual codes; unclassified (6 sources) FH: Stomach cancer 12-15-2022 Episodic Spondylosis; intervertebral disc disorders; other back problems (10 sources) Spondylosis without myelopathy or radiculopathy, lumbar region; Translations: [Other intervertebral disc degeneration, lumbar region] Onset: 2 Chronic Substance-related disorders (6 sources) Hypnotic dependence; Translations: [Sedative, hypnotic or anxiolytic dependence, 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 Unclassified (4 sources) LOW BACK PAIN, UNSPECIFIED; Translations: [LOW BACK PAIN, UNSPECIFIED] Onset: 3 Unclassified (4 sources) Patient encounter status 02-25-2023 Unclassified (1 source) Encounter for checking and testing of cardiac pacemaker pulse generator [battery]; Translations: [Encounter for checking and testing of cardiac pacemaker pulse generator [battery]] Onset: 3 Unclassified (1 source) Posterior tibial tendinitis, right leg; Translations: [Posterior tibial tendinitis, right leg] Onset: 3 Urinary tract infections (1 source) Urinary tract infectious disease 04-27-2022 Episodic Viral infection (12 sources) Disease caused by 2019-nCoV; Translations: [COVID-19] [...] Translations: [OTHER NAIL DISORDERS] Onset: 06-16-2022 Episodic Pancreatic disorders (not diabetes) (10 sources) Cyst of pancreas; Translations: [Cyst of pancreas] Onset: 01-12-2023 Episodic Spondylosis; intervertebral disc disorders; other back problems (9 sources) Muscle spasm of back; Translations: [Radiculopathy, cervical region] Onset: 11-13-2021 Episodic Unclassified (1 source) Paroxysmal ventricular tachycardia I47.29 Unclassified (1 source) Acute cough R05.1 Unclassified (1 source) LOW BACK PAIN, UNSPECIFIED; Translations: [LOW BACK PAIN, UNSPECIFIED] Onset: 08-25-2022 Results Test Name Value Interpretation Reference Range Facil ity Consultation Noteon 05-24-19 24 Consultation Note [id number]#1.00T IFF [facility] RAD - MISCon 05-24-2023 RAD - MISC [id number]#1.00T IFF [facility] Operative Reporton Operative Report [id number]#1.00T IFF [facility] IntraOperative Documentson 1 06-22-2022 IntraOperative Documents [id number]#1.00 TIFF [facility] Reminderson 04-21-2023 Reminders - From: Letty Valdez To: Aleida Gonzalez; Jennifer Bishop; Letty Valdez; Sent: 12/15/2022 13:00:41 EDT Show up: 12/15/2022 12:59:00 EDT Subject: Ambulatory Reminder Due Date/Time: 01/15/2023 12:59:00 EDT Reminder/Recall Pt needs to schedule an EGD w/poss dilation and a Colonoscopy with Dr. Henderson once he is able to take [facility]. Pt unable to go to [facility] due to respiratory issues. He will also need to hold his Plavix 5 days prior - his plc controls engineer is Dr. Arellano. He has signed a consent and it is scanned into his chart already. Ordered Plenvu and I have gone over instructions with patient and sent him home with a packet. EGD performed by Dr Powers on 04/15. Referred to [facility]. Colonoscopy was not done - last scope 2017. [facility] Progress Note-Physicianon Progress Note-Physician Patient: JEREMIE BENNETT Age: 82 years Sex: Male : 1940 Associated Diagnoses: None Author: MD Gutierrez Ahmad F Postoperative Information Postoperative disposition: Postoperative disposition: To PACU. Optimetrix number: Optimetrix number [id number]. Anesthetic utilized: General. Health Status Allergies: Allergic [...] when meets criteria ( To home ). [facility] Comment on above: Result Comment: Elec tronically Signed By: MD Gutierrez Ahmad F\.br\Date and Time Signed: 04/17/23 20:25 EST Progress Note-Physician Patient: JEREMIE BENNETT Age: 82 years Sex: Male : 1940 Associated Diagnoses: None Author: MD Gutierrez Ahmad F Preoperative Information Time patient last ate or [...] MOUTH EVERY 6 HOURS, [facility]), 163, cm, 11/04/22 15:03:00 EDT, Height/Length Dosing, 76, kg, 11/04/22 15:03:00 EDT, Weight Dosing Flonase 0.05 mg/inh Downing: 1 spray(s), Nasal, BID, 16 gram, Refill(s) 0, each nostril, [facility] ), 167.6, cm, 08/24/22 8:10:00 EDT, Height/Length Dosing, 83.4, kg, 08/24/22 8:10:00 EDT, Weight Dosing Plenvu oral powder for reconstitution: See Instructions, 1 EA, Refill(s) 0, Prior to colonoscopy., [id number], 163, cm, 12/15/22 12:03:00 EDT, Height/Length Dosing, [...] cap(s), Refills(s) 3, Pharmacy: [facility]), 163, cm, 12/15/22 12:03:00 EDT, Height/Length Dosing, 73.3, kg, 12/15/22 12:03:00 EDT, Weight Dosing rosuvastatin 10 mg Tab: See Instructions, TAKE 1 TABLET BY MOUTH DAILY, # 90 tab(s), Refills(s) 3, Pharmacy: [facility] ([facility]), 163, cm, 11/04/22 15:03:00 EDT, Height/Length Dosing, 76, kg, 11/04/22 15:03:00 EDT, Weight Dosing Documented Medications Documented APAP/butalbital/caffein e 325 mg-50 mg-40 mg Tab: Refill(s) 0, Headache Aspir 81: 81 mg, Oral, Daily, Refills(s) 0, Prophylaxis Metamucil: Refills(s) 0, Constipation [facility] Prescription: See Instructions, one touch ultra lancets Use to test sugars once a day [facility] Prescription: See Instructions, one touch ultra test strips test sugars once a day Multivitamin, Therapeutic w/ Minerals: Oral, Daily, Refill(s) 0, Prophylaxis Creighton-3 Fish Oil: Oral, Daily, Refills(s) 0, Prophylaxis [...] All Problems Primary hypertension / SNOMED CT 73067989 / Confirmed Hypercholesterolemia / SNOMED CT 73018020 / Confirmed Osteoarthritis / SNOMED CT 6627254359 / Confirmed Sleep apnea / SNOMED CT 567231627 / Confirmed Vitamin D deficiency / SNOMED CT 18555670 / Confirmed GERD with apnea / SNOMED CT 6895568713 / Confirmed Diabetic autonomic neuropathy associated with type 2 diabetes mellitus / SNOMED CT 6230686808 / Confirmed Glaucoma / SNOMED CT 29839993 / Confirmed Pacemaker / SNOMED CT 5548875344 / Confirmed Type 2 diabetes mellitus without complication, without long-term current use of insulin / ICD-10-CM E11.9 / Confirmed Upper abdominal pain / SNOMED CT 445588251 / Confirmed Lower abdominal pain / SNOMED CT 38836319 / Confirmed PUD (peptic ulcer disease) / SNOMED CT 84283541 / Confirmed BMI 30.0-30.9,adult / SNOMED CT 794592136 / Confirmed Right flank pain, chronic / SNOMED CT 034667698 / Confirmed Right-sided chest wall pain / SNOMED CT 128360271 / Confirmed Personal history of prostate cancer / SNOMED CT 6098466118 / Confirmed Leaking of urine / SNOMED CT 2253297153 / Confirmed Urinary incontinence without sensory awareness / SNOMED CT 0602968174 / Confirmed Mixed incontinence / SNOMED (more content not included)... [facility] Comment on above: Result Comment: Elec tronically Signed By: MD Matt, Anaya Salgado\.br\Date and Time Signed: 04/17/23 20:24 EST Consenton 04-16-2023 Consent [id number] IFF [facility] Discharge Instructionson Discharge Instructions [id number]#1.00T IFF [facility] Main OR Intraoperative Recor don 04-16-2023 Main OR Intraoperative Record IntraOp Document Type FT Summary Primary Physician: Gordy Powers MD Finalized Date/Time: 04/16/23 09:59:57 Pt. Name: GINNYJEREMIEO.B./Sex: 1940 Male Med Rec #: [id number] Physician: Gordy Powers MD Financial #: [id number] Pt. Type: O Room/Bed: / Admit/Disch: 04/15/23 [...] Entry 2 Entry 3 Case Attendee Jose IRONING PLEATER, Daniel Javier, Minerva Cabrera CRM FUNCTIONAL ANALYST, Negar Campbell Role Performed IRONING PLEATER Staff - Other Scrub - Primary Time In 04/15/23 13:08:00 04/15/23 13:08:00 04/15/23 13:08:00 Time Out 04/15/23 13:21:00 04/15/23 13:21:00 04/15/23 13:21:00 Procedure EGD(.) EGD(.) EGD(.) Comments Dr. Gutierrez is supervising Last Modified By: Zohaib ESCALANTE, Sabine Penny RN, Sabine Penny RN, Sabine Tripp 04/15/23 13:21:27 04/15/23 13:21:27 04/15/23 13:21:27 Entry 4 Entry 5 Case Attendee Gio CASON, Gordy Penny RN, Sabine Tripp Role Performed Surgeon - Primary Mobile Device Engineer - Primary Time In 04/15/23 13:08:00 04/15/23 [...] PreOp Antibiotic No Time Out Minerva Javier, Daniel Roca CRNA, Rick FAYE, Gio Espino MD, Gordy Rosa, Sabine Penny RN Time Out Complete 04/15/23 13:10:00 Outcomes Met? [...] and tissue Entry 1 Skin Integrity Intact, [place], Warm, and Skin Abnormality No Dry Outcomes [...] Positioning Device (more content not included)... [facility] Postoperative Documentson Postoperative Documents [id number] IFF [facility] Consent for Treatmenton 03-19 Consent for Treatment [id number]#1.00T IFF [facility] Discharge Instructionson Discharge Instructions EBNNETTJEREMIE Annabelle :1940 Visit Date:04/15/2023 Inpatient Discharge Instructions Your [...] 2% solution) fluticasone nasal (Flonase 0.05 mg/inh Downing) furosemide (furosemide 20 mg Tab) gabapentin (gabapentin 600 mg Tab) irbesartan (irbesartan 300 mg Tab) isosorbide mononitrate latanoprost ophthalmic loperamide (loperamide 2 mg Tab) metformin (metformin 500 mg ER Tab) multivitamin with minerals (Multivitamin, Therapeutic w/ Minerals) omega-3 polyunsaturated fatty acids (Creighton-3 Fish Oil) omeprazole (omeprazole 40 mg Cap-DR) [...] Event Name Event Result Pharmacy Information Other: [place], [place] Previously Scheduled Follow-Up Appointments Wednesday 1:40 PM EST With: Anjali Ruby CNP Where: [facility] Invalid Interpretation Code [address] [place] [address]- \.br\ Wednesday 1:00 PM EDT \.br\ With:\.br\ Where: [facility] Comment on above: Result Comment: Elec tronically Signed By: Marcel ESCALANTE, Gris Araiza\.br\Date and Time Signed: 04/15/23 13:27 EST Inpatient Patient Summaryon 04-15-2023 Inpatient Patient Summary [address] [address] [facility] Clinical Discharge Instructions PERSON INFORMATION Name: JEREMIE BENNETT Annabelle PHYSICIANS Admitting Physician: Gordy Powers MD Attending Physician: Gordy Powers MD PCP: Sabino Cooper MD Discharge Diagnosis: Comment: PATIENT EDUCATION INFORMATION Instructions: Upper Endoscopy, Adult, Care After; Endoscopy, Care After Procedure [facility] (CUSTOM) Medication Leaflets: Follow up: With: Address: When: Gordy Powers MD, SUR Comments: Office will call with results. Type Location Start [facility] Follow Up [facility] 05/03/2023 1:40 PM 05/03/2023 2:00 PM Confirmed FM Open FT [facility] 05/31/2023 10:00 AM 05/31/2023 10:15 AM Confirmed FM Medicare Wellness Subsequent [facility] 11/08/2023 1:00 PM 11/08/2023 2:00 PM Confirmed [...] each eye. fluticasone nasal (Flonase 0.05 mg/inh Downing) 1 Sprays Nasal Inhalation 2 times a [...] test sugars once a day. Misc Prescription ([facility] Prescription) one touch ultra test strips test sugars once a day. multivitamin with minerals (Multivitamin, Therapeutic w/ Minerals) By Mouth every day. omega-3 polyunsaturated fatty acids (Creighton-3 Fish Oil) By Mouth every day. omeprazole [...] By Mouth 2 times a day. Comment: [facility] Main OR PACU I Recordon 03-19 Main OR PACU I Record PACU Phase I Document Type FT Summary Primary Physician: Gordy Powers MD Finalized Date/Time: 04/15/23 13:58:46 Pt. Name: JEREMIE BENNETT/Sex: 1940 Male Med Rec #: [id number] Physician: Gordy Powers MD Financial #: [id number] Pt. Type: O Room/Bed: / Admit/Disch: 04/15/23 [...] I Outcomes Met? Yes Last Modified By: Gris Rod RN 04/15/23 13:58:34 Post-Care Text: The patient demonstrates [...] By: Gris Rod RN 04/15/23 13:58 [facility] Main OR Preoperative Recordo n 04-15-2023 Main OR Preoperative Record Holding Area Document Type FT Summary Primary Physician: Gordy Powers MD Finalized Date/Time: 04/15/23 12:46:57 Pt. Name: JEREMIE BENNETT/Sex: 1940 Male Med Rec #: [id number] Physician: Gordy Powers MD Financial #: [id number] Pt. Type: O Room/Bed: / Admit/Disch: 04/15/23 [...] By: Letty Sanches RN 04/15/23 12:46 [facility] Monitor Recordon 04-15-2023 Monitor Record [id number] TIFF [facility] Monitor Record [id number] TIFF [facility] Operative Reporton Operative Report Patient: ROXANNE BENNETT Age: 82 years Sex: Male : 1940 Associated Diagnoses: None Author: Gio CASON, Gordy Rosa Pre-Procedure Procedure Date 04/15/2023 13:33:00 . Procedure [...] Devices/ implants: none left in place. [facility] Comment on above: Result Comment: Elec tronically Signed By: Gordy Powers MD\.br\Date and Time Signed: 04/15/23 13:35 EST Outpatient Surgery Discharge Instructionon 04-15-2023 Outpatient Surgery Discharge Instruction [place] [id number] Patient Discharge Instructions PERSON INFORMATION Name: JEREMIE BENNETT Date of : 1940 Current Date: 04/15/2023 13:32:56 PHYSICIANS Admitting Physician: Gordy Powers MD Discharge Diagnosis: JEREMIE BENNETT has been given the following list of follow-up instructions, prescriptions, and patient education materials: IF UNABLE TO CONTACT YOUR PHYSICIAN AND YOU FEEL IT IS AN EMERGENCY, GO TO THE NEAREST EMERGENCY ROOM OR CALL 911 IGINNY RICHARD P, have received the attached patient education materials/instructions and have verbalized understanding: May we do a follow up call? Yes No I was present when discharge instructions were given Patient Signature Date Clinican/Nurse Signature _ Date Follow up: With: Address: When: Gio CASON, TC Ferrell Comments: Office will call with results. Type Location Start [facility] Follow Up [facility] 05/03/2023 1:40 PM 05/03/2023 2:00 PM Confirmed FM Open FT [facility] 05/31/2023 10:00 AM 05/31/2023 10:15 AM Confirmed FM Medicare Wellness Subsequent [facility] 11/08/2023 1:00 PM 11/08/2023 2:00 PM Confirmed Pharmacy Information: Other: [facility] You may receive a survey from [employer] asking you to rate your care experience. Your feedback is important and will help us understand what we do well and how we can improve the quality of care we provide to you, your loved ones and our community. It?s an honor to serve you. Thank you for choosing [facility] HERE ARE THE MEDICATION CHANGES THAT OCCURRED [...] each eye. fluticasone nasal (Flonase 0.05 mg/inh Downing) 1 Sprays Nasal Inhalation 2 times a [...] Tab) By Mouth 2 times a day. [facility] Prescription ([facility] Prescription) one touch ultra lancets Use to test sugars once a day. [facility] Prescription ([facility] Prescription) one touch ultra test strips test sugars once a day. multivitamin with minerals (Multivitamin, Therapeutic w/ Minerals) By Mouth every day. omega-3 polyunsaturated fatty acids (Creighton-3 Fish Oil) By Mouth every day. omeprazole [...] told. ? Follow (more content not included)... [facility] Office Visiton 04-14-2023 Follow-up visit [id number] [address] P 1940 M Date Provider Department Center 04/14/2023 Jean Paul-MARGARET ARELLANO CARD [facility] Family History Problem Relation Age of Onset Coronary artery disease Mother Kidney disease Mother Heart failure Mother Family Status - Relation Status Age at Mother Level of Service:05870 CO OFFICE/OUTPATIENT ESTABLISHED LOW MDM 20-29 MIN Normal [facility] Consultation Noteon 04-13-20 23 Consultation Note [id number] TIFF [facility] Physician Referralon 023 Physician Referral [id number] FF [facility] Physician Referralon 023 Physician Referral [id number]#1.00 TIFF [facility] Physician Referral [id number] IFF [facility] Telephone ([id number]) JEREMIE BENNETT ([id number]) 1940 M Date Time Provider Department 04/05/23 PRINGLEVAISHALI [id number] During your visit today, we recorded the following information about you: Lolly Dumont 04/05/2023 9:55 AM Signed Received records from [facility]. Reports for imaging listed below scanned. 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 - clopidogrel (PLAVIX) 75 mg tablet - furosemide (LASIX) 20 mg tablet Take 20 mg by mouth. - fluticasone (FLONASE) 50 mcg/actuation nasal spray 1 Downing. - omeprazole (PRILOSEC) 40 mg capsule Take [...] Encounter Status:Closed by LAMONTE COUCH on 04/06/23 [facility] Stan 04-01-2023 [facility] Office Visit ([id number] ) JEREMIE BENNETT ([id number]) 1940 M Date Time Provider Department 04/01/23 1:00 PM VAISHALI PRINGLE [id number] During your visit today, we recorded the [...] way of the shared medical record or [place] postal services. Jeremie Bennett is a 82 [...] GI re (more content not included)... [facility] Insurance Correspondenceon 05-29-2022 Insurance Correspondence [id number]#[id number] TIFF [facility] Physician Referralon 023 Physician Referral [id number] FF [facility] Giardia, Direct, EIAon 03-22 G. lamblia Ag IA Ql (Stl) Negative Invalid Interpretation Code Negative [facility] Comment on above: Result Comment: Perf ormed at: [address] [id number] PhD Bernice Bower Performed By: #### 3 [id number], [id number], [id number], [id number], [id number], [id number] ####[facility] [address] [place] [address] O & P EXAM, ROUTINE, REFLEXo n 03-22-2023 Ova and parasites identified Concentration Nom (Stl) Comment Invalid Interpretation Code [facility] Comment on above: Result Comment: No o va, cysts, or parasites seen. One negative specimen does not rule out the possibility of a parasitic infection. Performed at: [address] [id number] PhD Bernice Bower Performed By: #### 3 [id number], [id number], [id number], [id number], [id number], [id number] ####[facility] [address] [place] [address] O & P Exam, Routineon 2022 Ova and parasites identified LM Nom (Unsp spec) Final report Invalid Interpretation Code [facility] Comment on above: Result Comment: Thes e results were obtained using wet preparation(s) and trichrome stained smear. This test does not include testing for Cryptosporidium parvum, Cyclospora, or Microsporidia. Performed at: [address] [id number] PhD Bernice Bower Performed By: #### 3 [id number], [id number], [id number], [id number], [id number], [id number] ####[facility] [address] [place] [address] Ambulatory Visit Summaryon 1 Ambulatory Visit Summary JEREMIE BENNETT :1940 Visit Date:03/10/2023 Ambulatory Visit Instructions Your [...] 2% solution) fluticasone nasal (Flonase 0.05 mg/inh Downing) furosemide (furosemide 20 mg Tab) gabapentin (gabapentin 600 mg Tab) irbesartan (irbesartan 300 mg Tab) isosorbide mononitrate latanoprost ophthalmic loperamide (loperamide 2 mg Tab) metformin (metformin 500 mg ER Tab) multivitamin with minerals (Multivitamin, Therapeutic w/ Minerals) omega-3 polyunsaturated fatty acids (Creighton-3 Fish Oil) omeprazole (omeprazole 40 mg Cap-DR) [...] PM EST With: Anjali Ruby CNP Where: [facility] Invalid Interpretation Code [address] [place] [address]- \.br\ Wednesday 1:00 PM EDT \.br\ With:\.br\ Where: [facility] Auto Diffon 03-10-2023 Basophils/100 WBC (Bld) 0.4 % Normal 0.0-2.0 [facility] Comment on above: Order Comment: Order Added by Discern Expert. Performed By: #### 2 [id number], [id number], [id number], [id number] ####[address] [place] [address] Basophils/Leukocyt es Auto (Bld) [Pure # fraction] 0.0 E9/L Normal 0.0-0.2 [facility] Comment on above: Order Comment: Order Added by Discern Expert. Performed By: #### 2 [id number], [id number], 7486032, [id number] ####[address] [place] [address] Eosinophils/100 WBC (Bld) 2.4 % Normal 0.0-8.0 [facility] Comment on above: Order Comment: Order Added by Discern Expert. Performed By: #### 2 [id number], [id number], [id number], [id number] ####[address] [address] Eosinophils/Leukoc ytes Auto (Bld) [Pure # fraction] 0.2 E9/L Normal 0.0-0.5 [facility] Comment on above: Order Comment: Order Added by Discern Expert. Performed By: #### 2 [id number], 5314196, 6138615, [id number] ####[address] [place] [address] Lymphocytes/100 WBC (Bld) 21.9 % Normal 14.0-50.0 [facility] Comment on above: Order Comment: Order Added by Discern Expert. Performed By: #### 2 441958, 1491271, 0558181, [id number] ####[address] [address] Lymphocytes/Leukoc ytes Auto (Bld) [Pure # fraction] 1.8 E9/L Normal 1.0-4.0 [facility] Comment on above: Order Comment: Order Added by Discern Expert. Performed By: #### 2 824534, 0698724, 3898698, [id number] ####[address] [address] Monocytes/100 WBC (Bld) 6.9 % Normal 4.0-14.0 [facility] Comment on above: Order Comment: Order Added by Discern Expert. Performed By: #### 2 811740, 2690293, 0957760, [id number] ####[address] [address] [address] Monocytes/Leukocyt es Auto (Bld) [Pure # fraction] 0.6 E9/L Normal 0.2-1.0 [facility] Comment on above: Order Comment: Order Added by Discern Expert. Performed By: #### 2 377597, 4287302, 2955215, [id number] ####[address] [address] Neutrophils/100 WBC (Bld) 68.4 % Normal 36.0-75.0 [facility] Comment on above: Order Comment: Order Added by Discern Expert. Performed By: #### 2 563044, 3733682, 5662471, 33612762 ####[address] [address] Neutrophils/Leukoc ytes Auto (Bld) [Pure # fraction] 5.8 E9/L Normal 2.0-7.5 [facility] Comment on above: Order Comment: Order Added by Discern Expert. Performed By: #### 2 092533, 7231149, 3166382, 12763980 ####[address] [place] [address] CBC w/ Auto Diffon 10-25-202 3 Erythrocyte distribution width (RBC) [Ratio] 13.9 % Normal 10.9-14.2 [facility] Comment on above: Performed By: #### 2 288377, 2990709, 2330652, 17582738 #### [facility] [address] [place] [address] Hematocrit (Bld) [Volume fraction] 43.6 % Normal 37.7-49.0 [facility] Comment on above: Performed By: #### 2 053344, 8670757, 0967315, 44235119 #### [facility] [address] [place] [address] Hemoglobin (Bld) [Mass/Vol] 14.5 g/dL Normal 13.5-17.5 [facility] Comment on above: Performed By: #### 2 031441, 8778776, 6513265, 74879945 #### [facility] [address] [place] [address] MCH (RBC) [Entitic mass] 30.4 pg Normal 27.0-34.0 [facility] Comment on above: Performed By: #### 2 136227, 8423934, 4021669, 91620324 #### [facility] [address] [place] [address] MCHC (RBC) [Mass/Vol] 33.2 g/dL Normal 31.4-36.0 [facility] Comment on above: Performed By: #### 2 148127, 3888813, 3964004, 34516080 #### [facility] [address] [place] [address] MCV (RBC) [Entitic vol] 91.7 fL Normal 80.0-100.0 [facility] Comment on above: Performed By: #### 2 868148, 8239806, 5403080, 38148618 #### [facility] [address] [place] [address] Platelet mean volume (Bld) [Entitic vol] 8.6 fL Normal 6.4-10.8 [facility] Comment on above: Performed By: #### 2 396137, 0240806, 0762380, 16254577 #### [facility] [address] [place] [address] Platelets (Bld) [#/Vol] 236.0 E9/L Normal 150.0-500.0 [facility] Comment on above: Performed By: #### 2 408073, 9679242, 0755286, 61113648 #### [facility] [address] [place] [address] RBC (Bld) [#/Vol] 4.8 E12/L Normal 4.3-5.9 [facility] Comment on above: Performed By: #### 2 815951, 9768255, 1461833, 56035559 #### [facility] [address] [place] [address] WBC corrected for nucl RBC Auto (Bld) [#/Vol] 8.4 E9/L Normal 4.0-11.0 [facility] Comment on above: Performed By: #### 2 365642, 3963914, 3525742, 36454776 #### [facility] [address] [place] [address] CDiff PCRon 03-10-2023 CDiff PCR Unable to perform te st due to consistency of stool. C. Difficile testing will only be performed on diarrheal (unformed) stool unless ileus due to C. difficile is expected. Reference: Clinical Practice Guidelines for Clostridium difficile Infection in Adults, Infection and Hospital Epidemiology September 2009, Vol 31, No 5. Normal [facility] Cdiff Specimen Acceptable Unacceptable Normal [facility] Comment on above: Performed By: #### 3 [id number], 98112631, 45092309, 54577319, 75606280, [id number] ####[facility] [address] [place] [address] Order Cancelled YES Normal [facility] Comment on above: Performed By: #### 3 [id number], 92540642, 84846555, 63052505, 84574111, [id number] ####[facility] [id number] CHEMISTRYOrdered By: SYSTEM SYSTEM on 03-10-2023 Albumin [Mass/Vol] 4.0 g/dL Normal 3.3 - 5.0 gm/dL [facility] Remisol Albumin/Globulin [Mass ratio] 1.2 {ratio} Normal 1.1 - 2.2 [facility] Remisol ALP [Catalytic activity/Vol] 65 [iU]/d Normal 21 - 98 Int._Unit/L [facility] ALT No additional P-5'-P [Catalytic activity/Vol] 17 [iU]/d Normal 6 - 46 Int._Unit/L [facility] Anion gap [Moles/Vol] 10 mmol/L Normal 6 - 16 mEq/L [facility] AST [Catalytic activity/Vol] 16 [iU]/d Normal 5 - 43 Int._Unit/L [facility] Bilirubin [Mass/Vol] 0.4 mg/dL Normal 0.0 - 1.1 mg/dL [facility] Calcium [Mass/Vol] 9.2 mg/dL Normal 8.9 - 11.1 mg/dL [facility] Chloride [Moles/Vol] 108 mmol/L Normal 101 - 111 mmol/L [facility] CO2 [Moles/Vol] 25 mmol/L Normal 21 - 31 mmol/L [facility] Creatinine [Mass/Vol] 1.1 mg/dL Normal 0.5 - 1.3 mg/dL [facility] GFR/1.73 sq M.predicted among non-blacks MDRD (S/P/Bld) [Vol rate/Area] 67 mL/min/1.73 m2 Normal >=59mL/min/1.73 m2 [facility] Chem S Comment on above: Interpretive Data: C hronic kidney disease could be indicated at eGFR's of less than 60 mL/min/1.73m2. Kidney failure is indicated at less than 15 mL/min/1.73m2. Globulin (S) [Mass/Vol] 3.3 g/dL Normal 1.4 - 4.0 gm/dL [facility] Glucose [Mass/Vol] 136 mg/dL Normal 55 - 199 mg/dL [facility] Comment on above: Interpretive Data: I f this glucose result represents a fasting glucose, interpretation should refer to the following reference range: 55-99 mg/dL Potassium [Moles/Vol] 3.9 mmol/L Normal 3.5 - 5.3 mmol/L [facility] Remisol Protein [Mass/Vol] 7.3 g/dL Normal 6.0 - 7.8 gm/dL [facility] Sodium [Moles/Vol] 139 mmol/L Normal 135 - 145 mmol/L [facility] Remisol Urea nitrogen [Mass/Vol] 20 mg/dL Normal 5 - 21 mg/dL [facility] Remisol Urea nitrogen/Creatinin e [Mass ratio] 18 mg/mg Normal - 20 [facility] Remisol CMPon 03-10-2023 Albumin [Mass/Vol] 4.0 g/dL Normal 3.3-5.0 [facility] Comment on above: Performed By: #### 2 844839, 7909017, 1514315, 74001827 ####[facility] [address] [place] [address] Albumin/Globulin (S) [Mass conc ratio] 1.2 Normal 1.1-2.2 [facility] Comment on above: Performed By: #### 2 294254, 7748240, 5161403, 78542092 ####[facility] [address] [place] [address] ALP [Catalytic activity/Vol] 65 Int._Unit/L Normal 21-98 [facility] Comment on above: Performed By: #### 2 804456, 6203999, 9868749, 91568111 ####[facility] [address] [place] [address] ALT No additional P-5'-P [Catalytic activity/Vol] 17 Int._Unit/L Normal 6-46 [facility] Comment on above: Performed By: #### 2 681620, 0118415, 2122017, 54396902 ####[facility] [address] [place] [address] Anion gap [Moles/Vol] 10 mmol/L Normal 6-16 [facility] Comment on above: Performed By: #### 2 539206, 7539341, 9691157, 83508085 ####[facility] [address] [place] [address] AST [Catalytic activity/Vol] 16 Int._Unit/L Normal 5-43 [facility] Comment on above: Performed By: #### 2 148623, 8294362, 7453071, 20803559 ####[facility] [address] [place] [address] Bilirubin [Mass/Vol] 0.4 mg/dL Normal 0.0-1.1 [facility] Comment on above: Performed By: #### 2 843767, 1614246, 0873323, 62618519 ####[facility] [address] [place] [address] Calcium [Mass/Vol] 9.2 mg/dL Normal 8.9-11.1 [facility] Comment on above: Performed By: #### 2 294177, 3221775, 4854448, 51354535 ####[facility] [address] [place] [address] Chloride [Moles/Vol] 108 mmol/L Normal 101-111 [facility] Comment on above: Performed By: #### 2 554819, 5482088, 5048339, 36933336 ####[facility] [address] [place] [place] [address] CO2 [Moles/Vol] 25 mmol/L Normal 21-31 [facility] Comment on above: Performed By: #### 2 583683, 7505570, 6810245, 16955446 ####[facility] [address] [place] [address] Creatinine [Mass/Vol] 1.1 mg/dL Normal 0.5-1.3 [facility] Comment on above: Performed By: #### 2 000337, 0319873, 9314796, 89801009 ####[facility] [address] [place] [address] Globulin (S) [Mass/Vol] 3.3 g/dL Normal 1.4-4.0 [facility] Comment on above: Performed By: #### 2 128907, 7321005, 2693193, 97366517 ####[facility] [address] [place] [address] Glucose [Mass/Vol] 136 mg/dL Normal 55-199 [facility] Comment on above: Result Comment: If t his glucose result represents a fasting glucose, interpretation should refer to the following reference range: 55-99 mg/dL Performed By: #### 2 667234, 4360770, 7266605, 88360818 ####[facility] [address] [place] [address] Potassium [Moles/Vol] 3.9 mmol/L Normal 3.5-5.3 [facility] Comment on above: Performed By: #### 2 759385, 5953578, 5074420, 18812057 ####[facility] [address] [place] [address] Protein [Mass/Vol] 7.3 g/dL Normal 6.0-7.8 [facility] Comment on above: Performed By: #### 2 292073, 9033113, 5413730, 30688574 ####[facility] [address] [place] [address] Sodium [Moles/Vol] 139 mmol/L Normal 135-145 [facility] Comment on above: Performed By: #### 2 658131, 6538766, 6404740, 84959675 ####[facility] [address] [place] [address] Urea nitrogen [Mass/Vol] 20 mg/dL Normal 5-21 [facility] Comment on above: Performed By: #### 2 042337, 5321277, 9702431, 29749020 ####[facility] [address] [place] [address] Urea nitrogen/Creatinin e [Mass ratio] 18 No Units Normal 10-20 [facility] Comment on above: Performed By: #### 2 183622, 6107111, 4552150, 64857712 ####[facility] [address] [place] [address] Consent for Treatmenton 02-15 Consent for Treatment [id number] IFF Normal [facility] Enteric Panel by PCRon 03-10 C. coli+jejuni+upsali ensis DNA MICHELLE+non-probe Ql (Stl) Not detected Normal [facility] Comment on above: Result Comment: Test ing was performed utilizing reverse paraplanner (RT), polymerase chain reaction (PCR), and array [...] GI/GII, and Yersinia enterocolitica were tested by [employer] nulcleic acid test. Performed By: #### 3 564914131, 21749316, 46230809, 49048149, 12813459, 3119002973 ####[facility] [address] [place] [address] E. coli stx1+stx2 genes MICHELLE+non-probe Ql (Stl) Negative Normal [facility] Comment on above: Performed By: #### 3 930096635, 58480727, 84400578, 50704699, 31089405, 8285783698 ####[facility] [address] [place] [address] Enteric Panel by PCR Negative Normal [facility] Enteric Panel Intrl QC Pass Normal [facility] Comment on above: Result Comment: Test ing was performed utilizing reverse paraplanner (RT), polymerase chain reaction (PCR), and array [...] 1 and 2. Performed By: #### 3 857229031, 12527664, 86053844, 04167234, 95260518, 0142891078 ####[facility] [address] [place] [address] Norovirus genogroup I+II RNA MICHELLE+non-probe Ql (Stl) Not detected Normal [facility] Comment on above: Performed By: #### 3 897148470, 76695911, 24693710, 63997752, 64329159, 6784568187 ####[facility] [address] [place] [address] Rotavirus A RNA MICHELLE+non-probe Ql (Stl) Not detected Normal [facility] Comment on above: Performed By: #### 3 537886833, 59332038, 35778932, 37363340, 41792563, 9100063234 ####[facility] [address] [place] [address] S. enterica+bongori DNA MICHELLE+non-probe Ql (Stl) Not detected Normal [facility] Comment on above: Result Comment: This test result should be correlated with clinical presentations and medical history by a healthcare provider to determine its clinical significance. Performed By: #### 3 916815456, 02847760, 54371299, 07159894, 61201175, 0827741299 ####[facility] [address] [place] [address] Shigella species+EIEC invasion plasmid antigen H ipaH gene MICHELLE+non-probe Ql (Stl) Not detected Normal [facility] Comment on above: Performed By: #### 3 000264403, 94768502, 54653625, 92839005, 56747716, 0401536775 ####[facility] [address] [place] [address] V. cholerae+parahaemo lyticus+vulnificus DNA MICHELLE+non-probe Ql (Stl) Not detected Normal [facility] Comment on above: Performed By: #### 3 908323221, 44033772, 99260633, 58452819, 20506749, 9743324796 ####[facility] [address] [place] [address] Y. enterocolitica DNA MICHELLE+non-probe Ql (Stl) Not detected Normal [facility] Comment on above: Performed By: #### 3 925906604, 38959174, 25250127, 97814636, 56903712, 5991483257 ####[facility] [address] [place] [address] Fecal WBC Lactoferrinon 02-15 Fecal WBC Lactoferrin Negative Normal Negative [facility] Comment on above: Result Comment: The semi-quantitative detection of elevated levels of fecal lactoferrin is a marker for fecal leukocytes and an indication of intestinal inflammation. Performed By: #### 3 [id number], 62188965, 71899495, 56681098, 96093472, 1828633449 ####[facility] [address] [place] [address] Gastroenterology Office/Clin ic Noteon 03-10-2023 Gastroenterology Office/Clinic [...] Patient reported during most recent visit with wy 02/25/2023 that he was having RUQ pain described as sharp/achy 3-4 times a week that was worse with coughing or sneezing. He reported acid reflux was well controlled with omeprazole 40 mg daily. Patient was referred to [facility] regarding pancreatic cyst. Had discussed repeating EGD [...] Patient brought outside records from outside facility: [facility] 03/31/2020 CT A/P revealed prominent amount of fluid in colon suggesting diarrhea, diverticulosis, Patient had previous ultrasound of RUQ 09/2019 at outside facility revealed 0.7cm pancreatic cyst and cholelithiasis. Patient reports hx. cholecystectomy in 2019. Previous labs at outside facility [address] revealed normal BUN, normal creatinine, normal LFTs, normal H&H. Outside record from [facility] from 04/01/2020 indicated patient had RUQ ultrasound [...] start fiber supplementation daily. MRCP completed at [facility] 02/16/2023 showed 3 mm cystic lesion in pancreatic body. I recommended for patient to be referred to [facility] for further evaluation regarding and patient was [...] Worse aft (more content not included)... Normal [facility] Comment on above: Result Comment: Elec tronically Signed By: Anjali Ruby CNP\francisco\Date and Time Signed: 03/10/23 09:20 EDT HEMATOLOGYOrdered [...] E12/L Normal 4.3 - 5.9 E12/L FT HemeAutoSS WBC corrected for nucl RBC Auto (Bld) [#/Vol] 8.4 E9/L Normal 4.0 - 11.0 E9/L FT HemeAutoSS MICRO OTHER TESTSOrdered By: Elba Felipe on 03-10-2023 Fecal WBC Lactoferrin Negative 3 (03/10/23 12:45 PM) Normal Negative [facility] Comment on above: Interpretive Data: Paulette chinchilla semi-quantitative detection of elevated levels of fecal [...] these instructions at home: Medicines ? Take xicq-ctn-vltjrrp and prescription medicines only as told by [...] your condition for any changes. ? Take eblb-wzv-trwfytk and prescription medicines only as told by [...] provider. Document Revised: 06/21/2020 Document Reviewed: 09/11/2019 [employer] Patient Education ? 2022 [employer] Normal [facility] eGFRon 03-10-2023 GFR/1.73 sq M.predicted among non-blacks MDRD (S/P/Bld) [Vol rate/Area] 67 mL/min/1.73 m2 Normal >=59 [facility] Comment on above: Order Comment: Order added by Discern Expert. Result Comment: Batch Trucker sergo kidney disease could be indicated at eGFR's of less than 60 mL/min/1.73m2. Kidney failure is indicated at less than 15 mL/min/1.73m2. Performed By: #### 2 004610, 6899240, 7364313, 99285653 ####[facility] [address] [place] [address] Physician Referralon 023 Physician Referral [id number] IFF Normal [facility] Ambulatory Visit Summaryon 1 Ambulatory Visit Summary [...] 2% solution) fluticasone nasal (Flonase 0.05 mg/inh Downing) furosemide (furosemide 20 mg Tab) gabapentin (gabapentin 600 mg Tab) irbesartan (irbesartan 300 mg Tab) isosorbide mononitrate latanoprost ophthalmic loperamide (loperamide 2 mg Tab) metformin (metformin 500 mg ER Tab) multivitamin with minerals (Multivitamin, Therapeutic w/ Minerals) omega-3 polyunsaturated fatty acids (Creighton-3 Fish Oil) omeprazole (omeprazole 40 mg Cap-DR) [...] PM EST With: Anjali Ruby CNP Where: [facility] Invalid Interpretation Code [address] [place] [address]- \.br\ Wednesday 1:00 PM EDT \.br\ With:\.br\ Where: [facility] Gastroenterology Office/Clin ic Noteon 02-25-2023 [...] Patient brought outside records from outside facility: [facility] 03/31/2020 CT A/P revealed prominent amount of fluid in colon suggesting diarrhea, diverticulosis, Patient had previous ultrasound of RUQ 09/2019 at outside facility revealed 0.7cm pancreatic cyst and cholelithiasis. Patient reports hx. cholecystectomy in 2019. Outside record from [facility] from 04/01/2020 indicated patient had RUQ ultrasound [...] start fiber supplementation daily. MRCP completed at [facility] 02/16/2023 showed 3 mm cystic lesion in pancreatic body. I recommended for patient to be referred to [facility] for further evaluation regarding. Patient is here [...] MRCP in 2 years. MRCP completed at [facility] 02/16/2023 showed 3 mm cystic lesion in pancreatic body. I recommended for patient to be referred to [facility] for further evaluation regarding. Family history of GI cancer? paternal grandfather with stomach cancer, cousin with p (more content not included)... Normal [facility] Comment on above: Result Comment: Elec tronically Signed By: Anjali Ruby CNP\.marco a\Date and Time Signed: 02/25/23 14:04 EDT Patient [...] these instructions at home: Medicines ? Take kkks-ugg-uxretya and prescription medicines only as told by your health care provider. ? If you were prescribed an antibiotic medicine, take it as told by your health care provider. Do not stop taking the antibiotic even if you start to feel better. Eating and drinking ? Make any diet changes as told by your health care provider. ? Work with a diet and dairy nutritionist (dietitian) to create an eating plan [...] person's throa (more content not included)... [facility] RAD - MRI Reporton 3 RAD - MRI Report [id number] IFF Normal [facility] MR abdomen wo conon 02-17-20 23 MR abdomen wo [place] [id number] MRI Report Signed Patient: Jeremie Bennett MR#: [id number] : 1940 Acct:[id number] Age/Sex: 82 / M ADM Date: 02/16/23 Loc: MR Room: Type: [facility] Attending Dr: Anjali Ruby ENGINEERING PROGRAM ANALYST-C Copies to: Anjali Ruby CNP Ordering Provider: [...] SUGGESTED. Impression dictated by: Mario Urias Jr., D.O.02/16/2023 12:22 PM Dictation Location: [facility]-15 Transcribed By: [facility] 02/16/23 1222 Dictated By: Mario Urias Jr, DO 02/16/23 1220 Signed By: 02/16/23 1222 [facility] Family Medicine Office/Clini c Noteon 02-15-2023 [...] for 7 day(s), 14 tab(s), Refill(s) 0, [id number], 163, cm, 02/15/23 11:50:00 EDT, Height/Length Dosing, [...] otitis media Rig (more content not included)... [facility] Comment on above: Result Comment: Elec tronically Signed By: Yajaira Dunn\.br\Date and Time Signed: 02/15/23 14:43 EDT Medication Consenton 023 Medication Consent [id number] D:127 [facility] Pre-Certification Formon Pre-Certification Form [id number] D:127 [facility] Consultation Noteon 02-02-20 Consultation Note [id number] :127 [facility] Consultation Noteon 01-28-20 Consultation Note [id number] D:127 [facility] Insurance Correspondenceon 0 01-19-2023 Insurance Correspondence [id number] CD:127 [facility] Ambulatory Visit Summaryon 0 01-12-2023 Ambulatory Visit Summary JEREMIE BENNETT:1940 Visit Date:01/12/2023 Ambulatory Visit Instructions Your Diagnosis [...] 2% solution) fluticasone nasal (Flonase 0.05 mg/inh Downing) furosemide (furosemide 20 mg Tab) gabapentin (gabapentin 600 mg Tab) irbesartan (irbesartan 300 mg Tab) isosorbide mononitrate latanoprost ophthalmic loperamide (loperamide 2 mg Tab) metformin (metformin 500 mg ER Tab) multivitamin with minerals (Multivitamin, Therapeutic w/ Minerals) omega-3 polyunsaturated fatty acids (Creighton-3 Fish Oil) omeprazole (omeprazole 40 mg Cap-DR) [...] Follow-Up Appointments Wednesday 9:00 AM EST With: Sabino Cooper MD Where: [facility] Invalid Interpretation Code [address] [place] [address]- \.br\ You Need to Schedule the Following Appointments\.br \ Follow Up with Anjali Ruby CNP When: Within 1 to 2 weeks\.br\ Comments:\.br\ Following EGD/Colonoscopy. \.br\ Where:\.br\ You Need to Complete the Following\.br\ CT Abdomen w/ Contrast, 01/12/23, Routine, Order for future visit, Transport Mode: Ambulatory, Reason: Other (please specify), Reason: Pancreatic cyst, No, Pancreatic cyst [facility] Gastroenterology Office/Clin ic Noteon 01-12-2023 Gastroenterology Office/Clinic [...] Patient brought outside records from outside facility: [facility] 03/31/2020 CT A/P revealed prominent amount of fluid in colon suggesting diarrhea, diverticulosis, Patient had previous ultrasound of RUQ 09/2019 at outside facility revealed 0.7cm pancreatic cyst and cholelithiasis. Patient reports hx. cholecystectomy in 2019. Outside record from [facility] from 04/01/2020 indicated patient had RUQ ultrasound [...] Patient brought outside records from outside facility: [facility] 03/31/2020 CT A/P revealed prominent amount of fluid in colon suggesting diarrhea, diverticulosis, Patient had previous ultrasound of RUQ 09/2019 at outside facility revealed 0.7cm pancreatic cyst and cholelithiasis. Patient reports hx. cholecystectomy in 2019. Outside record from [facility] from 04/01/2020 indicated patient had RUQ ultrasound that revealed no acute process, fatty change in liver. Ultrasound of abdomen 12/17/2022 revealed 6 mm pancreatic cyst and radiology recommended MRI with contras (more content not included)... [facility] Comment on above: Result Comment: Elec tronically Signed By: Anjali Ruby CNP\.br\Date and Time Signed: 01/12/23 10:00 EDT Retail - Clinical Noteon Retail - Clinical Note [id number] D:127 [facility] Physician Referralon 023 Physician Referral [id number] D:127 [facility] US Abdomen, Limitedon 2022 US Abdomen, Limited [...] Moore MD Transcribed by: SHAUNNA Technologist: MADDIE Normal [facility] Consent for Treatmenton Consent for Treatment [id number] D:127 [facility] Ambulatory Visit Summaryon 0 12-15-2022 Ambulatory Visit Summary BENENTTJEREMIE Annabelle :1940 Visit Date:12/15/2022 Ambulatory Visit Instructions Your Diagnosis RUQ pain Dysphagia Fecal urgency Hard stool FH: stomach cancer Your Care Team Attending Physician - Anjali Ruby CNP Primary Care Physician - Sabino Cooper MD Referring Physician - Sabino Cooper MD. This Is Your Medications List polyethylene glycol [...] 2% solution) fluticasone nasal (Flonase 0.05 mg/inh Downing) furosemide (furosemide 20 mg Tab) gabapentin (gabapentin 600 mg Tab) irbesartan (irbesartan 300 mg Tab) isosorbide mononitrate latanoprost ophthalmic loperamide (loperamide 2 mg Tab) metformin (metformin 500 mg ER Tab) multivitamin with minerals (Multivitamin, Therapeutic w/ Minerals) omega-3 polyunsaturated fatty acids (Creighton-3 Fish Oil) omeprazole (omeprazole 40 mg Cap-DR) [...] Ultra Sound Wednesday 9:00 AM EST With: Hermes CASON, Sabino Rosa Where: [place] [address]- \.br\ You Need to Schedule the Following [...] See instructions Prior to colonoscopy. Pickup at [id number]\.br\ Unchanged albuterol (Albuterol (Eqv-ProAir HFA) 90 mcg/ [...] Unchanged fluticasone nasal (Flonase 0.05 mg/ inh Downing) 1 Sprays Nasal Inhalation 2 times a [...] concerns \.br\ Unchanged omega-3 polyunsaturated fatty acids (Creighton-3 Fish Oil) By Mouth Every day Contact [...] if questions or concerns \.br\ Pharmacy Information\.br\ [id number]: [address], [place] [id number] [phone]\.br\ Allergies\.br\ Adhesive Bandage (Rash)\.br\ Niaspan ER (Itching)\.br\ [...] including vitamins, herbs, eye drops, creams, and jfrd-bpz-vouzevt medicines.\.br\ ? \.br\ Any problems you or [...] ice pops.\.br\ ? \.br\ Drink only patt [facility] Consent for Procedure/Surger yon 12-15-2022 Consent for Procedure/Surgery [id number] D:127 Normal [facility] Gastroenterology Office/Clin ic Noteon 12-15-2022 Gastroenterology Office/Clinic [...] in 2018 that revealed diverticulosis and hemorrhoids. PMH of [...] Ordered: [place] (more content not included)... Normal [facility] Comment on above: Result Comment: Elec tronically Signed By: Anjali Ruby CNP\.br\Date and Time Signed: 12/15/22 12:30 EDT Physician Referralon 023 Physician Referral [id number] D:127 Normal [facility] Lab Reportson 11-27-2022 Lab Reports [id number] D:127 Normal [facility] Lab Reports [id number] D:127 Normal [facility] Family Medicine Office/Clini c Noteon 11-24-2022 Family [...] 5.9% Last Chronic Labs: February 2022 at [facility] History of Present Illness Jeremie Bennett is an 82-year-old male who presents today for a follow-up evaluation. The patient states that he is doing better. He felt stable yesterday, but then his stomach started bothering him again. He has an appointment with a timber sizer operator for an EGD. His plc controls engineer, Dr. Arellano, did not make any changes [...] 02/2022. [place] during [place]. Review of Systems PHQ Score Initial Depression [...] with voice recognition artificial intelligence software, specifically FanFound, Fotolia and or ReClaims. Substitutions may have occurred due to the inherent limitations of voice recognition and artificial intelligence software. Documentation services were performed after patient or guardian consented to allow [employer] to record this visit. [employer] environmental communications specialist and provider reviewed before signing. OSVALDO: [...] awareness Vi (more content not included)... Normal [facility] Comment on above: Result Comment: Elec tronically Signed By: Sabino Cooper MD\.br\Date and Time Signed: 11/24/22 12:47 EDT\.br\Electronically Co-Signed By: Tory Sifuentes\.br\Date and Time Co-Signed: 11/23/22 14:01 EDT CHEMISTRYOrdered By: Yash Shah on 11-23-2022 Albumin DL <= 20 mg/L (U) [Mass/Vol] microgram/mL Normal 0.0 - 19.0 mcg/mL [facility] Remisol Albumin Elph (U) [Mass fraction] mg/dL Invalid Interpretation Code [facility] Remisol Creatinine (U) [Mass/Vol] 15.9 mg/dL Invalid Interpretation Code [facility] Chem S U Prot/Creat Ratio [facility] Invalid Interpretation Code 0.00 - 200.00 [facility] Chem S Comment on above: Result Comment: Unab le to calculate due to Protein being less than analyzer reportable range. Orders Onlyon 11-23-2022 Orders Only [id number] [address] P 1940 M Date Provider Department Center 11/23/2022 JOSE R MCGHEE [facility] Family History Problem Relation Age of Onset Coronary artery disease Mother Kidney disease Mother Heart failure Mother Family Status - Relation Status Age at Mother Normal [facility] U Microalbon 11-23-2022 Albumin DL <= 20 mg/L (U) [Mass/Vol] mg/dL Normal 0.0-19.0 [facility] Comment on above: Performed By: #### 1 [id number], [id number] #### [facility] [address] [place] [address] U Protein/Creat Ratioon 11-14 Albumin Elph (U) [Mass fraction] <6.0 Invalid Interpretation Code [facility] Comment on above: Result Comment: The reference range and other method performance specifications have not been established for this test; results should be integrated into the clinical context for interpretation. Performed By: #### 1 [id number], [id number] #### [facility] [address] [place] [address] Creatinine (U) [Mass/Vol] 15.9 mg/dL Invalid Interpretation Code [facility] Comment on above: Result Comment: The reference range and other method performance specifications have not been established for this test; results should be integrated into the clinical context for interpretation. Performed By: #### 1 [id number], [id number] #### [facility] [address] [place] [address] U Prot/Creat Ratio [facility] Invalid Interpretation Code .00-200.00 [facility] Comment on above: Result Comment: Unab le to calculate due to Protein being less than analyzer reportable range. Performed By: #### 1 [id number], [id number] #### [facility] [address] [place] [address] Consultation Noteon 11-23-19 Consultation Note [id number] D:127 Normal [facility] Family Medicine Office/Clini c Noteon 11-12-2022 Family Medicine Office/Clinic Note Chief Complaint Subsequent [facility] Wellness Visit History of Present Illness I [...] Precautions for MERS/COVID-19 : N/A Galileo Tucker 11/04/2022 14:00 EDT Medicare/Medicaid Summary Height/Length Measured [...] Dr. Allen every 6 months Galileo Tucker 11/04/2022 14:00 EDT Advance Directive FT Advance Directive : Yes Patient Wishes to Receive Further Information on Advance Directives : No Organ Donation Consent : No Galileo Tucker 11/04/2022 14:00 EDT Procedures / Surgeries FT [...] 15:01:07 EDT Procedure Dt/Tm: 05/20/2020 ; Location: [facility] ; Provider: Oksana Saini MD; Anesthesia Minutes: 0 ; Procedure Name: Esophagogastroduodenosc opy ; Procedure Minutes: 0 ; Comments: 05/20/2020 13:51 TIM - Adela RN, Chanel 2 diminunative ulcers, gastritis, gastric polyp, biopsy ; Last Reviewed Dt/Tm: 11/04/2022 15:01:07 EDT Anesthesia Minutes: 0 ; Procedure Name: Cholecystectomy ; Procedure Minutes: 0 ; Last Reviewed Dt/Tm: 11/04/2022 15:01:07 EDT Anesthesia Minutes: 0 ; Procedure Name: Cataract ; Procedure Minutes: 0 ; Comments: 08/24/2022 8:08 EDT - Tone BELL, Marianne L bilateral ; Last Reviewed Dt/Tm: [...] Use:. Never Smokeles (more content not included)... [facility] Comment on above: Result Comment: Elec tronically Signed By: Sabino Cooper MD\.br\Date and Time Signed: 11/12/22 12:59 EDT\.br\Electronically Co-Signed By: Galileo Tucker\.br\Date and Time Co-Signed: 11/04/22 16:37 EDT 36on 11-11-2022 36 Please refill Normal [facility] Office Visiton 11-10-2022 Follow-up visit [id number] [address] P 1940 M Date Provider Department Center 11/10/2022 JOSE R MCGHEE [facility] Family History Problem Relation Age of Onset Coronary artery disease Mother Kidney disease Mother Heart failure Mother Family Status - Relation Status Age at Mother Level of Service:47111 CO OFFICE/OUTPATIENT ESTABLISHED MOD MDM 30-39 MIN [facility] PROGRESSon 11-10-2022 SARS-CoV-2 (COVID-19) RNA MICHELLE+probe Ql [...] other systems reviewed and are negative. Normal [facility] Physician Referralon 023 Physician Referral [id number] CD:127 [facility] Screenson 11-05-2022 Screens [id number] D:127 [facility] Ambulatory Visit Summaryon 0 11-04-2022 Ambulatory Visit Summary JEREMIE BENNETT :1940 Visit Date:11/04/2022 Ambulatory Visit Instructions Your [...] 2% solution) fluticasone nasal (Flonase 0.05 mg/inh Downing) furosemide (furosemide 20 mg Tab) gabapentin (gabapentin 600 mg Tab) irbesartan (irbesartan 300 mg Tab) isosorbide mononitrate latanoprost ophthalmic loperamide (loperamide 2 mg Tab) metformin (metformin 500 mg ER Tab) multivitamin with minerals (Multivitamin, Therapeutic w/ Minerals) omega-3 polyunsaturated fatty acids (Creighton-3 Fish Oil) omeprazole (omeprazole 40 mg Cap-DR) [...] Follow-Up Appointments Wednesday 9:00 AM EDT With: Saibno Cooper MD Where: [address] [address]- \.br\ Medications\.br\ What How Much When Instructions\.br [...] Unchanged fluticasone nasal (Flonase 0.05 mg/ inh Downing) 1 Sprays Nasal Inhalation 2 times a [...] 2 times a day\.br\ Unchanged Misc Prescription ([facility] Prescription) See instructions one touch ultra test strips test sugars once a day \.br\ Unchanged Misc Prescription ([facility] Prescription) See instructions one touch ultra lancets Use to test sugars once a day \.br\ Unchanged multivitamin with minerals (Multivitamin, Therapeutic w/ Minerals) By Mouth Every day\.br\ Unchanged omega-3 polyunsaturated fatty acids (Creighton-3 Fish Oil) By Mouth Every day\.br\ Unchanged [...] ? \.br\ Place frequently used items in utey-cz-chwhk places. Lower the shelves around your home [...] way.\.br\ ? \.br\ Do not use floor solomon islander or wax that makes floors slippery. If [...] and support your feet. Wear shoes gio [facility] Patient Educationon 11-05-19 Patient Education Caregiving Fall Prevention in the [...] night-lights. ? Place frequently used items in sliy-mq-flnyp places. Lower the shelves around your home [...] the way. ? Do not use floor solomon islander or wax that makes floors slippery. If [...] include working with a physical therapist or maintenance trainer to improve your strength, balance, and endurance. Where to find more information ? Centers for Disease Control and Prevention, [place]: www.cdc.gov ? National [place] on Aging: www.barak.nih.gov Contact a health care [...] health ca (more content not included)... Normal [facility] Family Medicine Office/Clini c Isabela 11-03-2022 Family Medicine Office/Clinic Note Chief Complaint [...] He states he has not told his plc controls engineer is Dr. Arellano about his fatigue. He [...] the patient to reach out to his plc controls engineer for possible stress test to make sure [...] with voice recognition artificial intelligence software, specifically FanFound, Fotolia and or ReClaims. Substitutions may have occurred due to the inherent limitations of voice recognition and artificial intelligence software. ATTESTATION: Documentation services were performed after patient or guardian consented to allow [employer] to record this visit. [employer] environmental communications specialist and provider reviewed before signing. OSVALDO: [...] 1 drop(s), OPTH, BID Flonase 0.05 mg/inh Downing, 1 spray(s), Nasal, BID furosemide 20 mg Tab, 20 mg= 1 tab(s), Oral, Daily gabapentin 600 mg Tab, 600 mg, Oral, TID irbesartan 300 mg Tab, 300 mg= 1 tab (more content not included)... Normal [facility] Comment on above: Result Comment: Elec tronically Signed By: Hermes CASON, Sabino Rosa\.br\Date and Time Signed: 11/03/22 11:45 EDT\.br\Electronically Co-Signed By: Rocky Krause.br\Date and Time Co-Signed: 11/02/22 15:41 EDT RAD - [facility] 11-03-2022 RAD - [facility] [id number] D:127 Normal [facility] Ambulatory Visit Summaryon 0 11-02-2022 Ambulatory Visit [...] 2% solution) fluticasone nasal (Flonase 0.05 mg/inh Downing) furosemide (furosemide 20 mg Tab) gabapentin (gabapentin [...] Appointments Wednesday 2:00 PM EDT [facility]: [facility] [address] [place] [address]- \.br\ Medications\.br\ What How Much When Instructions\.br [...] Unchanged fluticasone nasal (Flonase 0.05 mg/ inh Downing) 1 Sprays Nasal Inhalation 2 times a [...] questions or concerns \.br\ Unchanged Misc Prescription ([facility] Prescription) See instructions one touch ultra test strips test sugars once a day Contact prescribing physician if questions or concerns \.br\ Unchanged Misc Prescription ([facility] Prescription) See instructions one touch ultra [...] without sensory awareness\.br\ Vitamin D deficiency\.br\ \.br\ [facility] Consultation Noteon 10-29-19 Consultation Note [id number] D:127 Normal [facility] Family Medicine Office/Clini c Noteon 10-06-2022 Family [...] no questions/concerns: upset stomach and diarrhea Rxed [id number] twice a day from the ER History [...] Willy Montano to record this visit. [employer] environmental communications specialist and provider reviewed before signing. OSVALDO: [...] 1 drop(s), OPTH, BID Flonase 0.05 mg/inh Downing, 1 spray(s), Nasal, BID fluticasone propionate, 50 [...] metformin 500 mg ER Tab, Oral, BID Misc DME Prescription, See Instructions Misc DME Prescription, See Instructions Multivitamin, Therapeutic w/ [...] Never Smoke (more content not included)... Normal [facility] Comment on above: Result Comment: Elec tronically Signed By: Sabino Cooper MD\.br\Date and Time Signed: 10/06/22 17:14 EDT\.br\Electronically Co-Signed By: Rocky Krause\.br\Date and Time Co-Signed: 10/05/22 15:07 EDT Ambulatory Visit Summaryon 0 10-05-2022 Ambulatory Visit Summary JEREMIE BENNETT :1940 Visit Date:10/05/2022 Ambulatory Visit Instructions Your [...] (fluticasone propionate) fluticasone nasal (Flonase 0.05 mg/inh Downing) furosemide (furosemide 20 mg Tab) gabapentin (gabapentin [...] EDT With: Hermes CASON, Sabino Rosa Where: [place] [id number] \.br\ Medications\.br\ What How Much When Instructions\.br \ New albuterol (Albuterol (Eqv-ProAir HFA) 90 mcg/ inh inhalation aerosol) 2 Puffs Inhalation Every 6 hours or cheapest alternative Pickup at [facility] ([facility] )\.br\ Unchanged amlodipine (amLODIPine 5 [...] Unchanged fluticasone nasal (Flonase 0.05 mg/ inh Downing) 1 Sprays Nasal Inhalation 2 times a [...] questions or concerns \.br\ Unchanged Misc Prescription ([facility] Prescription) See instructions one touch ultra test strips test sugars once a day Contact prescribing physician if questions or concerns \.br\ Unchanged Misc Prescription ([facility] Prescription) See instructions one touch ultra [...] concerns \.br\ Pharmacy Information\.br\ [facility] ([facility] ): [address] [place], [place] [id number] [phone]\.br\ Allergies\.br\ Adhesive Bandage (Rash)\.br\ Niaspan ER (Itching)\.br\ [...] without sensory awareness\.br\ Vitamin D deficiency\.br\ \.br\ [facility] CBC AUTO DIFFon 09-29-2022 BASO # 0.1 103/ul Normal 0.0-0.1 [facility] Comment on above: Performed By: #### C BC #### [facility] [address] [address] [address] Ramsey Sanchez Basophils/100 WBC (Bld) 0.7 % Normal 0.2-2.0 [facility] Comment on above: Performed By: #### C BC #### [facility] [address] [place], [place] [address] Dr. Ramsey Sanchez EO # 0.2 103/ul Normal 0.0-0.7 [facility] Comment on above: Performed By: #### C BC #### [facility] [address] [address] [address] Ramsey Sanchez Eosinophils/100 WBC (Bld) 1.5 % Normal 0.9-7.0 [facility] Comment on above: Performed By: #### C BC #### [facility] [address] [place] [address] Dr. Ramsey Sanchez Erythrocyte distribution width (RBC) [Ratio] 13.6 % Normal 11.0-15.0 [facility] Comment on above: Performed By: #### C BC #### [facility] [address] [place] [address] Dr. Ramsey Sanchez Hematocrit (Bld) [Volume fraction] 43.5 % Normal 42.0-54.0 [facility] Comment on above: Performed By: #### C BC #### [facility] [address] [place] [address] Dr. Ramsey Sanchez Hemoglobin (Bld) [Mass/Vol] 13.9 g/dL Critically low 14.0-18.0 [facility] Comment on above: Performed By: #### C BC #### [facility] [address] [place] [address] Dr. Ramsey Sanchez IG # 0.29 10e3/ul Critically high 0.00-0.03 [facility] Comment on above: Performed By: #### C BC #### [facility] [address] [place] [address] Dr. Ramsey Sanchez IG % 2.9 % Critically high 0.0-0.5 [facility] Comment on above: Performed By: #### C BC #### [facility] [address] [place] [address] Dr. Ramsey Sanchez LYMPH # 2.1 103/ul Normal 1.2-3.8 [facility] Comment on above: Performed By: #### C BC #### [facility] [address] [place] [address] Dr. Ramsey Sanchez Lymphocytes/100 WBC (Bld) 20.8 % Normal 20.5-60.0 [facility] Comment on above: Performed By: #### C BC #### [facility] [address] [place] [address] Dr. Ramsey Sanchez MANUAL DIFF REQ NO Normal [facility] Comment on above: Performed By: #### C BC #### [facility] [address] [place] [address] Dr. Ramsey Sanchez MCH (RBC) [Entitic mass] 29.6 pg Normal 25.9-34.0 [facility] Comment on above: Performed By: #### C BC #### [facility] [address] [place] [address] Dr. Ramsey Sanchez MCHC (RBC) [Mass/Vol] 32.0 g/dL Normal 29.9-35.2 [facility] Comment on above: Performed By: #### C BC #### [facility] [address] [place] [address] Dr. Ramsey Sanchez MCV (RBC) [Entitic vol] 92.6 fL Normal 80.0-94.0 [facility] Comment on above: Performed By: #### C BC #### [facility] [address] [place] [address] Dr. Ramsey Sanchez MONO # 0.8 103/ul Normal 0.3-0.8 [facility] Comment on above: Performed By: #### C BC #### [facility] [address] [place] [address] Dr. Ramsey Sanchez Monocytes/100 WBC (Bld) 8.3 % Normal 1.7-12.0 [facility] Comment on above: Performed By: #### C BC #### [facility] [address] [place] [address] Dr. Ramsey Sanchez NEUT # 6.5 103/ul Normal 1.4-6.5 [facility] Comment on above: Performed By: #### C BC #### [facility] [address] [place] [address] Dr. Ramsey Sanchez Neutrophils/100 WBC (Bld) 65.8 % Normal 43.0-75.0 [facility] Comment on above: Performed By: #### C BC #### [facility] [address] [place] [address] Dr. Ramsey Sanchez Platelet mean volume (Bld) [Entitic vol] 11.1 fL Normal 9.5-13.5 [facility] Comment on above: Performed By: #### C BC #### [facility] [address] [place] [address] Dr. Ramsey Sanchez PLT 198 103/ul Normal 150-450 [facility] Comment on above: Performed By: #### C BC #### [facility] [address] [place] [address] Dr. Ramsey Sanchez RBC 4.70 106/ul Normal 4.70-6.10 [facility] Comment on above: Performed By: #### C BC #### [facility] [address] [place] [address] Dr. Ramsey Sanchez WBC 9.9 103/ul Normal 4.0-11.0 [facility] Comment on above: Performed By: #### C BC #### [facility] [address] [place] [address] Dr. Ramsey Sanchez ER URINE PROFILEon 3 Bilirubin Ql (U) Negative Normal NEGATIVE [facility] Comment on above: Performed By: #### E RUR #### [facility] [address] [place] [address] Dr. Ramsey Sanchez Clarity (U) CLEAR Normal CLEAR [facility] Comment on above: Performed By: #### E RUR #### [facility] [address] [place] [address] Dr. Ramsey Sanchez Color (U) YELLOW Normal YELLOW [facility] Comment on above: Performed By: #### E RUR #### [facility] [address] [place] [address] Dr. Ramsey IVORY A micrscopic examination will be performed if indicated. Normal [facility] Comment on above: Performed By: #### E RUR #### [facility] [address] [place] [address] Dr. Ramsey Sanchez Glucose Ql (U) Negative Normal NEGATIVE [facility] Comment on above: Performed By: #### E RUR #### [facility] [address] [place] [address] Dr. Ramsey Sanchez Hemoglobin Ql (U) Negative Normal NEGATIVE [facility] Comment on above: Performed By: #### E RUR #### [facility] [address] [place] [address] Dr. Ramsey Sanchez Ketones Ql (U) Negative Normal NEGATIVE [facility] Comment on above: Performed By: #### E RUR #### [facility] [address] [place] [address] Dr. Ramsey Sanchez LEUKOCYTES Negative Normal NEGATIVE [facility] Comment on above: Performed By: #### E RUR #### [facility] [address] [place] [address] Dr. Ramsey Sanchez Nitrite Ql (U) Negative Normal NEGATIVE [facility] Comment on above: Performed By: #### E RUR #### [facility] [address] [place] [address] Dr. Ramsey Sanchez pH (U) 5.5 [pH] Normal 5-9 [facility] Comment on above: Performed By: #### E RUR #### [facility] [address] [place] [address] Dr. Ramsey Sanchez SPEC GRAVITY 1.020 Normal 1.005-<=1.025 [facility] Comment on above: Performed By: #### E RUR #### [facility] [address] [place] [address] Dr. Ramsey Sanchez UA PROTEIN Negative Normal NEGATIVE/ TRACE [facility] Comment on above: Performed By: #### E RUR #### [facility] [address] [place] [address] Dr. Ramsey Sanchez UR MICRO IND NOT INDICATED Normal [facility] Comment on above: Performed By: #### E RUR #### [facility] [address] [place] [address] Dr. Ramsey Sanchez Urobilinogen Qn (U) 0.2 {Leatha'U}/dL Normal 0.2 - 1.0 [facility] Comment on above: Performed By: #### E RUR #### [facility] [address] [place] [address] Dr. Ramsey Sanchez LACTATE/LACTIC ACIDon 2022 Lactate [Moles/Vol] 1.7 mmol/L Normal 0.4-2.0 [facility] Comment on above: Performed By: #### L ACT #### [facility] [address] [place] [address] Dr. Ramsey Sanchez PROF 14(COMP METB)on 023 Albumin [Mass/Vol] 3.1 g/dL Critically low 3.4-5.0 [facility] Comment on above: Performed By: #### C LISANDRO HSTROPN #### [facility] [address] [place] [address] Dr. Ramsey Sanchez Albumin/Globulin [Mass ratio] 0.8 {ratio} Normal [facility] Comment on above: Performed By: #### C LISANDRO HSTROPN #### [facility] [address] [place] [address] Dr. Ramsey Sanchez ALP [Catalytic activity/Vol] 73 U/L Normal 46-116 [facility] Comment on above: Performed By: #### C LISANDRO HSTROPN #### [facility] [address] [place] [address] Dr. Ramsey Sanchez ALT [Catalytic activity/Vol] 22 U/L Normal 16-63 [facility] Comment on above: Performed By: #### C LISANDRO, HSTROPN #### [facility] [address] [place] [address] Dr. Ramsey Sanchez Anion gap [Moles/Vol] 13.5 mmol/L Normal [facility] Comment on above: Performed By: #### C LISANDRO, HSTROPN #### [facility] [address] [place] [address] Dr. Ramsey Sanchez AST [Catalytic activity/Vol] 26 U/L Normal 15-37 [facility] Comment on above: Performed By: #### C LISANDRO, HSTROPN #### [facility] [address] [place] [address] Dr. Ramsey Sanchez Bilirubin [Mass/Vol] 0.4 mg/dL Normal 0.2-1.0 [facility] Comment on above: Performed By: #### C MP, HSTROPN #### [facility] [address] [place] [address] Dr. Ramsey Sanchez Calcium [Mass/Vol] 8.4 mg/dL Critically low 8.5-10.1 [facility] Comment on above: Performed By: #### C MP, HSTROPN #### [facility] [address] [place] [address] Dr. Ramsey Sanchez Chloride [Moles/Vol] 107 mmol/L Normal 98-107 [facility] Comment on above: Performed By: #### C MP, HSTROPN #### [facility] [address] [place] [address] Dr. Ramsey Sanchez CO2 [Moles/Vol] 26.1 mmol/L Normal 21.0-32.0 [facility] Comment on above: Performed By: #### C MP, HSTROPN #### [facility] [address] [place] [address] Dr. Ramsey Sanchez Creatinine [Mass/Vol] 0.94 mg/dL Normal 0.70-1.30 [facility] Comment on above: Performed By: #### C MP, HSTROPN #### [facility] [address] [place] [address] Dr. Ramsey Sanchez EGFR-AF LIBYAN >60 Normal >=60 [facility] Comment on above: Performed By: #### C MP, HSTROPN #### [facility] [address] [place] [address] Dr. Ramsey Sanchez EGFR-NON AF LIBYAN >60 Normal >=60 [facility] Comment on above: Performed By: #### C MP, HSTROPN #### [facility] [address] [place] [address] Dr. Ramsey Sanchez Globulin (S) [Mass/Vol] 3.7 g/dL Normal [facility] Comment on above: Performed By: #### C MP, HSTROPN #### [facility] [address] [address] [address] Ramsey Sanchez Glucose [Mass/Vol] 118 mg/dL Critically high 74-106 [facility] Comment on above: Performed By: #### C MP, HSTROPN #### [facility] [address] [place] [address] Dr. Ramsey Sanchez Potassium [Moles/Vol] 3.6 mmol/L Normal 3.5-5.1 [facility] Comment on above: Performed By: #### C MP, HSTROPN #### [facility] [address] [place] [address] Dr. Ramsey Sanchez Protein [Mass/Vol] 6.8 g/dL Normal 6.4-8.2 [facility] Comment on above: Performed By: #### C MP, HSTROPN #### [facility] [address] [place] [address] Dr. Ramsey Sanchez Sodium [Moles/Vol] 143 mmol/L Normal 136-145 [facility] Comment on above: Performed By: #### C MP, HSTROPN #### [facility] [address] [address] [address] Ramsey Sanchez Urea nitrogen [Mass/Vol] 19.0 mg/dL Critically high 7.0-18.0 [facility] Comment on above: Performed By: #### C MP, HSTROPN #### [facility] [address] [place] [address] Dr. Ramsey Sanchez Urea nitrogen/Creatinin e [Mass ratio] 20.2 mg/mg Normal [facility] Comment on above: Performed By: #### C MP, HSTROPN #### [facility] [address] [place] [address] Dr. Ramsey Sanchez TROPONIN, HIGH SENSITIVITYon 09-29-2022 HSTROP 9.8 pg/mL Normal 4.0-76.1 [facility] Comment on above: Result Comment: CUT- OFF POINTS HAVE BEEN ESTABLISHED BASED ON THE FOURTH UNIVERSAL DEFINITIONS OF MYOCARDIAL INFARCTION. THE UPPER REFERENCE LIMIT (URL) OF TROPONIN, DEFINED THE 99TH PERCENTILE OF cTnI DISTRIBUTION IN A REFERENCE POPULATION, HAS BEEN CONFIRMED THE DECISION THRESHOLD FOR MS DIAGNOSIS. Performed By: #### C LISANDRO, HSTROPN #### [facility] [address] [place], [place] [address] Dr. Ramsey Sancehz XR CHEST 1 Von 09-29-2022 XR CHEST [...] hardware and overlying objects out of the qawzv-hg-qbhv. Electronically authenticated by: ALANNA CARLOS Date: 2022-09-29 16:37 Normal [facility] ED Note-Physicianon 09-28-19 23 ED Note-Physician Basic [...] Cooper In 3 days 09/25/2022 EDT [address] [place] [address]- Business (2) Additional Instructions: Patient Education COVID-19 Attestation Patient seen and evaluated by the physician minister assistant. Attending physician was present in the emergency department and supervised care. This visit was performed by both the physician and an APC. I performed all aspects of the MDM as documented. This report was transcribed using voice recognition software. Every effort was made to ensure accuracy, however, inadvertently computerized paraplanner mistakes may be present. Appropriate healthcare PPE [...] 1 drop(s), OPTH, BID Flonase 0.05 mg/inh Downing, 1 spray(s), Nasal, BID fluticasone propionate, 50 mcg, Inhalation, BID furosemide 20 mg Tab, 20 mg= 1 tab(s), Oral, Daily gabapentin 600 mg Tab, 600 mg, Oral, TID irbesart (more content not included)... Normal [facility] Comment on above: Result Comment: Elec tronically Signed By: Braden Stafford PA-C\.br\Date and Time Signed: 09/22/22 18:15 EDT\.br\Electronically Co-Signed By: Gordy Sánchez DO\.br\Date and Time Co-Signed: 09/27/22 07:11 EDT BNPon 05-12-2023 Natriuretic peptide B (Bld) [Mass/Vol] 720.0 pg/mL Normal <=1,800.0 [facility] Comment on above: Performed By: #### C XSTOOL #### [facility] [address] [place] [address] Dr. Ramsey Sanchez CARDIAC RAFI ADMITon 023 CK [Catalytic activity/Vol] 198 U/L Normal 39-308 [facility] Comment on above: Performed By: #### C XSTOOL #### [facility] [address] [place] [address] Dr. Ramsey Sanchez CK.MB [Mass/Vol] 2.62 ng/mL Normal <=3.60 [facility] Comment on above: Performed By: #### C XSTOOL #### [facility] [address] [place] [address] Dr. Ramsey Sanchez HSTROP 8.8 pg/mL Normal 4.0-76.1 [facility] Comment on above: Result Comment: CUT- OFF POINTS HAVE BEEN ESTABLISHED BASED ON THE FOURTH UNIVERSAL DEFINITIONS OF MYOCARDIAL INFARCTION. THE UPPER REFERENCE LIMIT (URL) OF TROPONIN, DEFINED THE 99TH PERCENTILE OF cTnI DISTRIBUTION IN A REFERENCE POPULATION, HAS BEEN CONFIRMED THE DECISION THRESHOLD FOR MS DIAGNOSIS. Performed By: #### C XSTOOL #### [facility] [address] [place] [address] Dr. Ramsey Sanchez MARILYN 69 ng/mL Normal 16-96 [facility] Comment on above: Performed By: #### C XSTOOL #### [facility] [address] [place] [address] Dr. Ramsey Sanchez CBC AUTO DIFFon 09-25-2022 BASO # 0.0 103/ul Normal 0.0-0.1 [facility] Comment on above: Performed By: #### C BC #### [facility] [address] [place] [address] Dr. Ramsey Sanchez Basophils/100 WBC (Bld) 0.2 % Normal 0.2-2.0 [facility] Comment on above: Performed By: #### C BC #### [facility] [address] [place] [address] Dr. Ramsey Sanchez EO # 0.0 103/ul Normal 0.0-0.7 [facility] Comment on above: Performed By: #### C BC #### [facility] [address] [place] [address] Dr. Ramsey Sanchez Eosinophils/100 WBC (Bld) 0.1 % Critically low 0.9-7.0 [facility] Comment on above: Performed By: #### C BC #### [facility] [address] [place] [address] Dr. Ramsey Sanchez Erythrocyte distribution width (RBC) [Ratio] 14.0 % Normal 11.0-15.0 [facility] Comment on above: Performed By: #### C BC #### [facility] [address] [place] [address] Dr. Ramsey Sanchez Hematocrit (Bld) [Volume fraction] 45.4 % Normal 42.0-54.0 [facility] Comment on above: Performed By: #### C BC #### [facility] [address] [place] [address] Dr. Ramsey Sanchez Hemoglobin (Bld) [Mass/Vol] 14.4 g/dL Normal 14.0-18.0 [facility] Comment on above: Performed By: #### C BC #### [facility] [address] [place] [address] Dr. Ramsey Sanchez IG # 0.08 10e3/ul Critically high 0.00-0.03 [facility] Comment on above: Performed By: #### C BC #### [facility] [address] [place] [address] Dr. Ramsey Sanchez IG % 0.9 % Critically high 0.0-0.5 [facility] Comment on above: Performed By: #### C BC #### [facility] [address] [place] [address] Dr. Ramsey Sanchez LYMPH # 1.6 103/ul Normal 1.2-3.8 [facility] Comment on above: Performed By: #### C BC #### [facility] [address] [place] [address] Dr. Ramsey Sanchez Lymphocytes/100 WBC (Bld) 17.9 % Critically low 20.5-60.0 [facility] Comment on above: Performed By: #### C BC #### [facility] [address] [place] [address] Dr. Ramsey Sanchez MANUAL DIFF REQ NO Normal [facility] Comment on above: Performed By: #### C BC #### [facility] [address] [place] [address] Dr. Ramsey Sanchez MCH (RBC) [Entitic mass] 29.8 pg Normal 25.9-34.0 [facility] Comment on above: Performed By: #### C BC #### [facility] [address] [place] [address] Dr. Ramsey Sanchez MCHC (RBC) [Mass/Vol] 31.7 g/dL Normal 29.9-35.2 [facility] Comment on above: Performed By: #### C BC #### [facility] [address] [place] [address] Dr. Ramsey Sanchez MCV (RBC) [Entitic vol] 94.0 fL Normal 80.0-94.0 [facility] Comment on above: Performed By: #### C BC #### [facility] [address] [place] [address] Dr. Ramsey Sanchez MONO # 0.9 103/ul Critically high 0.3-0.8 [facility] Comment on above: Performed By: #### C BC #### [facility] [address] [place] [address] Dr. Ramsey Sanchez Monocytes/100 WBC (Bld) 9.6 % Normal 1.7-12.0 [facility] Comment on above: Performed By: #### C BC #### [facility] [address] [place] [address] Dr. Ramsey Sanchez NEUT # 6.3 103/ul Normal 1.4-6.5 [facility] Comment on above: Performed By: #### C BC #### [facility] [address] [place] [address] Dr. Ramsey Sanchez Neutrophils/100 WBC (Bld) 71.3 % Normal 43.0-75.0 [facility] Comment on above: Performed By: #### C BC #### [facility] [address] [place] [address] Dr. Ramsey Sanchez Platelet mean volume (Bld) [Entitic vol] 11.0 fL Normal 9.5-13.5 [facility] Comment on above: Performed By: #### C BC #### [facility] [address] [place] [address] Dr. Ramsey Sanchez PLT 203 103/ul Normal 150-450 [facility] Comment on above: Performed By: #### C BC #### [facility] [address] [place] [address] Dr. Ramsey Sanchez RBC 4.83 106/ul Normal 4.70-6.10 [facility] Comment on above: Performed By: #### C BC #### [facility] [address] [place] [address] Dr. Ramsey Sanchez WBC 8.9 103/ul Normal 4.0-11.0 [facility] Comment on above: Performed By: #### C BC #### [facility] [address] [place] [address] Dr. Ramsey Sanchez LACTATE/LACTIC ACIDon 2022 Lactate [Moles/Vol] 1.0 mmol/L Normal 0.4-2.0 [facility] Comment on above: Performed By: #### C BC #### [facility] [address] [place] [address] Dr. Ramsey Sanchez PROF 14(COMP METB)on 023 Albumin [Mass/Vol] 3.7 g/dL Normal 3.4-5.0 [facility] Comment on above: Performed By: #### C XSTOOL #### [facility] [address] [place] [address] Dr. Ramsey Sanchez Albumin/Globulin [Mass ratio] 0.9 {ratio} Normal [facility] Comment on above: Performed By: #### C XSTOOL #### [facility] [address] [place] [address] Dr. Ramsey Sanchez ALP [Catalytic activity/Vol] 68 U/L Normal 46-116 [facility] Comment on above: Performed By: #### C XSTOOL #### [facility] [address] [address] [address] Ramsey Sanchez ALT [Catalytic activity/Vol] 23 U/L Normal 16-63 [facility] Comment on above: Performed By: #### C XSTOOL #### [facility] [address] [address] [address] Ramsey Sanchez Anion gap [Moles/Vol] 12.6 mmol/L Normal [facility] Comment on above: Performed By: #### C XSTOOL #### [facility] [address] [place] [address] Dr. Ramsey Sanchez AST [Catalytic activity/Vol] 21 U/L Normal 15-37 [facility] Comment on above: Performed By: #### C XSTOOL #### [facility] [address] [place] [address] Dr. Ramsey Sanchez Bilirubin [Mass/Vol] 0.3 mg/dL Normal 0.2-1.0 [facility] Comment on above: Performed By: #### C XSTOOL #### [facility] [address] [place] [address] Dr. Ramsey Sanchez Calcium [Mass/Vol] 8.8 mg/dL Normal 8.5-10.1 [facility] Comment on above: Performed By: #### C XSTOOL #### [facility] [address] [place] [address] Dr. Ramsey Sanchez Chloride [Moles/Vol] 104 mmol/L Normal 98-107 [facility] Comment on above: Performed By: #### C XSTOOL #### [facility] [address] [address] [address] Ramsey Sanchez CO2 [Moles/Vol] 26.7 mmol/L Normal 21.0-32.0 [facility] Comment on above: Performed By: #### C XSTOOL #### [facility] [address] [place] [address] Dr. Ramsey Sanchez Creatinine [Mass/Vol] 1.27 mg/dL Normal 0.70-1.30 [facility] Comment on above: Performed By: #### C XSTOOL #### [facility] [address] [address] [address] Ramsey Sanchez EGFR-AF LIBYAN >60 Normal >=60 [facility] Comment on above: Performed By: #### C XSTOOL #### [facility] [address] [address] [address] Ramsey Sanchez EGFR-NON AF LIBYAN 54 mL/min/1.73m2 Critically low >=60 [facility] Comment on above: Performed By: #### C XSTOOL #### [facility] [address] [place] [address] Dr. Ramsey Sanchez Globulin (S) [Mass/Vol] 3.9 g/dL Normal [facility] Comment on above: Performed By: #### C XSTOOL #### [facility] [address] [address] [address] Ramsey Sanchez Glucose [Mass/Vol] 114 mg/dL Critically high 74-106 [facility] Comment on above: Performed By: #### C XSTOOL #### [facility] [address] [address] [address] Ramsey Sanchez Potassium [Moles/Vol] 4.3 mmol/L Normal 3.5-5.1 [facility] Comment on above: Performed By: #### C XSTOOL #### [facility] [address] [address] [address] Ramsey Sanchez Protein [Mass/Vol] 7.6 g/dL Normal 6.4-8.2 [facility] Comment on above: Performed By: #### C XSTOOL #### [facility] [address] [address] [address] Ramsey Sanchez Sodium [Moles/Vol] 139 mmol/L Normal 136-145 [facility] Comment on above: Performed By: #### C XSTOOL #### [facility] [address] [place] [address] Dr. Ramsey Sanchez Urea nitrogen [Mass/Vol] 19.0 mg/dL Critically high 7.0-18.0 [facility] Comment on above: Performed By: #### C XSTOOL #### [facility] [address] [place], [place] [address] Dr. Ramsey Sanchez Urea nitrogen/Creatinin e [Mass ratio] 15.0 mg/mg Normal [facility] Comment on above: Performed By: #### C XSTOOL #### [facility] [address] [address] [address] Ramsey Sanchez XR CHEST 1 Von [...] by: TRACY HIGHTOWER Date: 2022-09-24 23:29 Normal [facility] Discharge Instructionson Discharge Instructions [id number]#1.00C D:127 Normal [facility] XR Chest 2 Viewson 3 XR Chest [...] mGy = na DAP = na Normal [facility] COVID + FLU Quick Testingon 09-22-2022 SARS-CoV-2 (COVID-19) RNA MICHELLE+probe Ql (Unsp spec) Positive [facility] [employer] Other COVID + FLU Quick Testing Negative [facility] [employer] Other Consent for Treatmenton Consent for Treatment [id number]#1.00C D:127 Normal [facility] ED Clinical Summaryon 2022 ED Clinical Summary [place] [id number] ED Clinical Summary Person Information Name: JEREMIE BENNETT [facility] Age: 81 Years : 1940 Sex: Male Language: Uzbek PCP: Sabino Cooper MD Marital Status: Visit [...] 09/22/2022 18:15:08 09/22/2022 18:15:08 09/22/2022 18:15:08 ADDRESS: [address] [place] [id number] PHYS DOC NOTES: MEDICAL INFORMATION: Prescriptions Given: [...] a day. fluticasone nasal (Flonase 0.05 mg/inh Downing) 1 Sprays Nasal Inhalation 2 times a [...] Tab) By Mouth 2 times a day. [facility] Prescription ([facility] D[facility] Prescription) one touch ultra test strips test sugars once a day. [facility] Prescription ([facility] Prescription) one touch ultra lancets Use [...] Mouth every day. PATIENT EDUCATION INFORMATION: Instructions: COVID-19 Follow up: With: Address: When: Sabino Hermes [address] [place] [address] Business ([employer] In 3 days 09/25/2022 DIAGNOSIS: COVID-19 Normal [facility] ED Patient Summaryon 023 ED Patient Summary (Inserted Image. Lisset ble to display) [address] [address] Patient Discharge Instructions Person Information Name: JEREMIE BENNETT Age: 81 Years Arrival Date: 09/22/2022 16:21:40 Discharge Diagnosis: COVID-19 Primary Care Physician: Sabino Cooper MD Provider Information Primary Provider: Gordy Sánchez DO Advanced Band Top Maker:Braden Stafford PA-C The exam and treatment you received in the Emergency Department were for an urgent problem and are not intended as complete care. It is important that you follow up with a doctor, nurse practitioner, or physician?s minister assistant for ongoing care. If your symptoms become worse or you do not improve as expected and you are unable to reach your usual health care provider, you should return to the Emergency Department. We are available 24 hours a day. JEREMIE BENNETT has been given the following list of patient education materials, prescriptions and follow-up instructions: Follow-up Instructions: With: Address: When: Sabino Cooper [address] [place], [place] [id number] [facility] (2) In 3 days 09/25/2022 In the event that this physician does not participate in your insurance network, please consult with your insurance company to find a nearby participating provider. Patient Education Materials: COVID-19 A MESSAGE TO ALL PATIENTS REGARDING OPIOIDS PRESCRIPTION OPIOIDS: WHAT YOU NEED TO KNOW Prescription opioids can be used to help relieve gdfkawkf-cm-snvzaa pain and are often prescribed following a [...] be struggling with addiction, tell your health home care provider and ask for guidance or call SAMHSA?S National Helpline at 0-667-445-HELP. v Source: [place] Department of Health and Human Serv (more content not included)... Normal [facility] Transfer Inon 09-16-2022 Transfer In [id number]#1.00C D:127 Normal [facility] Formson 09-14-2022 Forms [id number]#1.00C D:127 Normal [facility] Ambulatory Visit Summaryon 0 08-24-2022 Ambulatory Visit [...] propionate) fluticasone nasal (fluticasone 0.05 mg/inh Nasal Downing) furosemide (furosemide 20 mg Tab) gabapentin (gabapentin [...] EDT With: Hermes CASON, Sabino Rosa Where: [facility] Medicine Office/Clini c Noteon 08-24-2022 Family Medicine [...] ultra soft lancets [facility] History of Present Illness Jeremie Bennett is [...] Willy Montano to record this visit. OSVALDO environmental communications specialist and provider reviewed before signing. OSVALDO: [...] qualifying da (more content not included)... [facility] Comment on above: Result Comment: Elec tronically Signed By: Sabino Cooper MD\.br\Date and Time Signed: 08/24/22 14:42 EDT\.br\Electronically Co-Signed By: Leandra Zaidi\.br\Date and Time Co-Signed: 08/24/22 11:11 EDT Medication Consenton 023 Medication Consent [id number]#1.00C D:127 Normal [facility] MR ankle RT wo conon 023 MR ankle RT wo con [facility] [place] [address] MRI Report Signed Patient: Jeremie Bennett MR#: [id number] 812 : 1940 Acct:[id number] Age/Sex: 81 / M ADM Date: 08/12/22 Loc: MR Room: Type: [facility] Attending Dr: Alanna Hardy DPM, MS Copies to: Alanna Hardy DPM, MS Ordering Provider: Alanna Hardy DPM MS Date of Service: 08/12/22 MR/MR ankle RT wo con: M7.22, [id number] MR ankle RT wo con 08/12/2022 7:28 [...] Rafi Gordon M.D.08/12/2022 1:15 PM Dictation Location: [place] [address] Transcribed By: [facility] 08/12/22 1315 Dictated By: Rafi Gordon II, MD 08/12/22 1302 Signed By: 08/12/22 1315 [facility] MR cervical spine wo conon 0 08-12-2022 MR cervical spine wo con [facility] [address] [place] [address] [place] [address] MRI Report Signed Patient: Jeremie Bennett MR#: [id number] 812 : 1940 Acct:[id number] Age/Sex: 81 / M ADM Date: 08/12/22 Loc: MR Room: Type: [facility] Attending Dr: Missy Westfall PA-C Copies to: [...] Rafi Gordon M.D.08/12/2022 1:02 PM Dictation Location: [place] [address] Transcribed By: [facility] 08/12/22 1302 Dictated By: Rafi Gordon II, MD 08/12/22 1255 Signed By: 08/12/22 1302 Normal [facility] XR pre/post mri xrayon 08-12 XR pre/post mri xray [facility] [place] [address] XRay Report Signed Patient: Jeremie Bennett MR#: [id number] 812 : 1940 Acct:[id number] Age/Sex: 81 / M ADM Date: 08/12/22 Loc: Room: Type: [facility] Attending Dr: Alanna Hardy DPM, MS Copies to: Alanna Hardy DPM, MS Ordering Provider: Alanna Hardy DPM, MS Date of Service: 08/12/22 XR/XR pre/post mri xray: M7.22, [id number] XR pre/post mri xray 08/12/2022 7:28 AM [...] Rafi Gordon M.D.08/12/2022 1:17 PM Dictation Location: [place] [address] Transcribed By: [facility] 08/12/22 1317 Dictated By: Rafi Gordon II, MD 08/12/22 1315 Signed By: 08/12/22 1317 [facility] POINT OF CARE GLUCOSEon 07-16 Glucose [Mass/Vol] 146 mg/dL Critically high 74-106 [facility] Comment on above: Performed By: #### C XSTOOL #### [facility] [address] [address] [address] Ramsey Sanchez Coding Summary.on 05-28-2022 Coding Summary. CD:[id number] Gh0 bWw+PGhlYWQ+JT3RDLXoU27 ggTUjcF3PS2kQLH7VEYPFHM LGDJ5VWU0soSV7LVmoV9Bcr iAv YbbtoHKtTM99QVx7LQL8dAp aJMyseE6xkEExP0r2IqScSG 23uO81XAvlBPFpYuY3NzIqj jsgbWFy F6qvXqOhkHXhGsj+PHRhYmx lIHdpZHRoPScxMDAlJyBzdH hbKM7iRf9mJFKzSEPcnSbwt HNlOiBj r0nhVYOcDHptYO5foCddS0T bsCR4CPVvx8s9Ya07vLX+PH XnDQF8kQwpIWfil261UwIoi 5ouWCM0 fPWsFUktXOK6R98xq4C3QKC aBOLmDVW2qKL4oV8cqZjwxo tyF8ZljZFxYzP9YUC9qGQzh T8mqJrj dhwotB9kDfa+O60DKT1LYIT AYT7KDcu8L5FaZmbzcUO+PC 71BYAeEC50rEOdgVVkq2yin Oz8LiIc VPHiMOO0dRprWZwna1PuWWT sD27kmEDly1S1QAXssDpkpM KtFjZkpVI4tJ2eLMszfnqtk 2hvdzsn Qnnhv0hgwy67iO41V13oAXm nWZSeTVO4BGBhNCWmqXhyeu 3bmY8eQr0+HBfgq4bxn8llw Cz3DkVt MJEgnmJhzAhoKUO0x3BwNj1 2H6RguLocg2DiQpf3bu81kM Drn3Q4gQG1VGosJRAukZ1wX WxlZnQ6 RUSpNrVvhH72zHZyDKdmIx6 dmRexsNbfFJ7gOFGjnogoFF FjgN8fIQVegZCsbOwcCC4yT TBpbjtm q141JkSkEEI8MKEowPGsN2G ipV3kTiLuVPPxBCCbQ1XqoR IwHEmcT995JUwxBqO9XMHdv jBtN3Ua ZNZhkZnzOcE8l7E5Oy2Ns7F ppcijEYG9WDnbUWLzTdUxKr OuWrP7A1ZnWdm9DRLumGrnX G3iP2Ih TYMbekpxhhhkwZS8ILYvBCH deA31lIAuRRzlOd6hp2A9w2 01NFHoJMWddM18Jg2evEqgQ TBwdCBU fE7soirmm9kekgfeDeAhXSC yJDh4UTj8AVMhyOlmUjTpQL Z4MsD1PTI1xUOuuQ9pjOwvl jaaxM5p Oyc+P81unZ4zWII9EYF6hcl oIHOexqDsHB37IE11X6BtQx wvdGFibGU+PGRpdiBzdHlsZ H3bGbXx w1wtr4BjTRmtL9FqSRCpTJh iAnh9MJCkVVM9iAN2hW7vIG JkEQbrr8N6iST5X2GimrVlx e7xy8or QEKfQHfjG05qoBEnz3N9OZF iuBE6RGMkyOtqKkKssV04Jm c+NGDqfMliz3EtIbukn9qje 2cjsSb3 YtWdYKUffzYqeDmhAWY6x1O iSh81M48mSRomLJAwTJPuTG IyZMVsyNnuib7unO9aMw7+P GNvbCB3 rBE5mP6dWOLzHlH1BIcaR83 3OkZvaTPyTrcuf7etg9keuS w0InBkXXMgmhDlwByqNZJ3h 5SkHa54 B65eLYfoEOAwQKRlPMJrWHE ouHpsbp2qnN2oWw6+PC9jb2 rqcs94zK33sTX+DZFaZNV2t WxlPSdw QWVezL2qLGosBbV5FLUzVjY kmL40rQLwTOmcIy5ukRdaaA vuPP7sSQVmmnykb610DcPcc 2xkIDEw qVHwCUplZZN5S24zh9W4FNG qNLVaSCK8dYK9mR6qvFcoaj ogbGVmdDsgdmVydGljYWwtY KkrX221 IHRvcDsnPlBhdGllbnQgTmF cAQl8M9ZeNfn9GGMkcZlvQM 0sxVQsGHwpSv6wgNwxpSpmY K7dLWAi grwwh265LtQii2qsAARffQQ yVYigPVI6V77tn2A5NBBlEX GbYCY7jPH3uK5vkGftquqza GVmdDsg rdMnaMaoWWsgXWtzV436GRD lwMueHtWhuoZuYBDueCH9MG 91HA33dOKmb6E1nBV5T1AgJ GRpbmct bbsetEB5CCQkVEJyqF47Qh1 huGiqKm8zWKYfTGE4DDReeY OdS1PfdB1uWyIiGVFpVEAhM 3RleHQt OYcsE054HPdmFrS2FFTzidE nT2LhXTQutGzoUmT9e6G4Th 9OF0T9MT84AX55lZXyo2J5u VK8O4Gv MJSiugmhcivnzTJ9ZNRcPDK gzQ87Gx8rzGskYg1vFAOsQJ K8TGTexZKoE0UqeO5vEjPnI DAwMDAw G7DbfSIfLBfuL988VFlvYtP 6MDCsqaEiZ0EmBLOvaHixUk Y4o7B0Sq4SOVj6OT21HP39s MZgj5J1 lKV4Z2PzBSPmsbcmbzmqqGR 5BYXcOMKvsA75Sy0gmKmlVy 5cNDUyLJK5ECJihPUyI9Fai B9kNtPv BCVpKPAmH2WixZNyLAkeZ38 3WGktUdA7RGPjozCjO7AcOE EjvQqnUbZ8s3M0Pc1RXLIrR I65NQU0 rDC4UD07CN79T8KkGjonuVJ ibGU+PHRhYmxlIHdpZHRoPS cfOVJsYfYkrTraSS5nIh4mO GVyLWNv lDfmdEOzWzBpr4uaABNeURf qAU9nvUmnL8SceWS3EURsd2 o1Lx82T69oI5ZnkDI+PGNvb ET0hEU8 uO3nCyVfDtU6HLogF585TyA xuGHkVkdut1ekz1pvvMq2Dr I4BBBjhaPtwWgcYFD7j5GmL d04Q58c IHdpZHRoPSIxNSUiIHZhbGl czd7bwL4sXo9+YURyxSW0wR K3vH2jJzWrNcW8OXlcG463P nRvcCIv Qkzbq6spd0pnlQy7FuZgGZN hrqAleUlwLBG4q5DyDg92L0 XhsSybd0TmNxe7xs68aUHzz 9B7sHE5 J1SlQQNnhspzuQOkaEmxPR9 pYYFabtuoEOQiyW1aYLPqL4 k1TzNxWfF2YOyeQ9AiatO2A DEwcHQg JSuvIVB6M56rg0E6ZOCmXNV hXCH4iZC9tN6ztYejfaaplH VmdDsgdmVydGljYWwtYWxpZ 246IHRv oMzoWNKwzK7xAWVhhXDcyBv aCQ1zYIRbtjwjRhDAYYYASO NGYMOBSLGXRFS9C6PxQva1X CBzdHls WO9ghNMzVGwmLy7vaAnqdBo xXI2iGNVdcpbdLGTusJ8yRY MndKWraIsqAZ7sNICxevlxh 250OiAx OVP5LBPlkXVjH7OvvJ8vGiQ mRCJtMAAdT0IajZDmSSdlT6 13ZGwhOlP5ZLIfvoWqF9HvV WFsaWdu YvV8x4W2Yo5jBz6jXQ7qIPK zMG87PM44pALmg6H8yEY3Y3 BsGPAftbkkvhutvEK7GMXpA DUwaW47 eOIhZBxbAr0um6K2x080IGG nNUCciS65Kj0rhIpaFMNhtL EJjS5fkmigr8xzanapKjHvL DAwMDt0 UWs5FRLjpCwbCnBmIHY7JcO 6UDW8kTAosP6emVktqmgbhT 9wOyc+EBNqXYLafpS3P0YsU as2RVKw pBioWD0jrNUzIHosLu4dvKf tfBmqJL8bZELiswfiYUMcdN 4yTMIcgJPlwCkoFF2tONTxs mzww599 UyOzRCT5HTKihYAaZ6QbhJ0 fRhFiKGUrZTUzO3KjkBXpCP phN098TQwqUoP5WENhmaRdN 2FsLWFs nZetEzN1o9A1Pt2VLEjmZD3 2NW87yAUza1C5eKG8F2SrTE VqlkgognenvYM4MWPvKXMov O76mPRj GJsvMl2ts3O8t285NPBfLOS mjF59Ny4yjVgnSLEcuWGAiM 2lnstee5skpcbbZpSmTAGxK Zh2GGk8 FXMezQtvEpIoFRO5VwO1FUJ 3xIRigY9mkUfwaqrkeI8zOm c+I6P6xCC7cREdfBxgyLY+P F09ur86 O3KpVsvaChc5ZSCzUQF9kTG 0mZ1bHFHgJAjgi9A6qTS3J1 JxchSvnp1wz8hlVGErRYalN 29sbGFw x7G1SNFmkIP9CAWaiWyrEtI ibX78Onb+KRNhaChla8RuWk rxf2xkq8qbrYs3WuPhRLEpt mFsaWdu USU8v9VbWh12E81fZGaeBMJ mAITuQJWxLMCwaCdyzi1ltK 9wIi8+SUCyePT9zXM5bZ3fE jAlIiB2 NAhnI427GlRgxZXqHjpjk2j qm4lyrNj3WpJkYTKjgvShdU cjILF4z3AhMv86H6FhjLban 5QjHjo2 mh94xNPme1W2oJA6D3UoVZS diryygTIulXjeHJ6iKBTfll yoARKxuV6uAEEcR2w4DvAiV sX3XFlw R8WpgeR4QVTxmXCiAQFudOE FdX9zlegwm1dufrorTlBaLW PeZEv8XRv1PIPljDefLyKgW IL9KfA8 KJQ0nPVxhO0vkQopmynbqF9 wOyc+XWs1t1teoJFlBC5rfQ E0CJ68YW29nOLcf9R2nAR6D 3BhZGRp gthjuinrsYU2AXQqWDIchV0 3Jm1obZxjVy9zMGEjIRC3ZO RunKLpH7HrwN3wIdApRYCnT YSrU8Fo aOGtSYriJ383IGcmCfJ3RFR osrGyR6GtWKHllVxmDjC2w3 M1Ox7BYL94JB88FY41uGNeu 4C4kNZ9 K6OdWZAfbkoudchkpML9XZO qTJXymF91Jq8vwDiwHw7tDX HoECZ9ZXRysNExR5HlkS4rO iAjMDAw AJNaI4FeuGHjVTogL922UIl pMaB9BMZjeaCfI8JjUAJyrP tiRtK4q7C8Tm7ARs85RG57O B45wAEw b2F6lHH6O9GsVCUeyrkbxgx joES3VPQgZZDfhH45By2tiF ynFn1hBQNcBJD3HLNihQZxA 0FpsR4p RmZuCIXqBCIjN3RcaBStYPu hC361YLgeTaM1QLUaclGsT7 LzNIYyvUghYwB8m9O1Mi9KO Xllcjo8 V9PxCzgusHG+MI51EJNyAK8 6fAYwwGVbz4eqhJj6TwWlRA TfRNX8hCmzUByzg2OmEKBpZ 29sbGFw c2U6 (more content not included)... Normal [facility] Consent for Procedure/Surger yon 05-27-2022 Consent for Procedure/Surgery [id number]#1.00 CD:127 [facility] IntraOperative Documentson 0 05-27-2022 IntraOperative Documents [id number]#1.00 CD:127 [facility] Consent for Treatmenton 05-17 Consent for Treatment [id number]#1.00C D:127 [facility] Main OR Intraoperative Recor don 05-26-2022 Main OR Intraoperative Record IntraOp Document Type FTURO Summary Primary Physician: Dequan GALICIA MD Finalized Date/Time: 05/26/22 13:48:11 Pt. Name: JEREMIE BENNETT Annabelle EchevarriaB./Sex: 1940 Male Med Rec #: [id number] Physician: Dequan GALICIA MD Financial #: [id number] Pt. Type: O Room/Bed: / Admit/Disch: 05/26/22 12:22:54 - Institution: Case Times FTURO Entry 1 Patient Times In Room 05/26/22 13:38:00 Out Room 05/26/22 13:47:00 Procedure Times Start 05/26/22 13:40:00 Stop 05/26/22 13:43:00 Anesthesia Times Last Modified By: Susana Luna RN 05/26/22 13:48:07 Case Attendance FTURO Entry 1 Entry 2 Entry 3 Case Attendee Dequan GALICIA MD CRM FUNCTIONAL ANALYST, Susana Tong RN Role Performed Surgeon - Primary Scrub - Primary Mobile Device Engineer - Primary Time In 05/26/22 13:38:00 05/26/22 13:38:00 05/26/22 13:38:00 Time Out 05/26/22 13:47:00 05/26/22 13:47:00 05/26/22 13:47:00 Procedure CYSTOSCOPY LOCAL(.) CYSTOSCOPY LOCAL(.) CYSTOSCOPY LOCAL(.) Comments Last Modified By: Susana Luna RN, RN, Susana Obrien RN 05/26/22 13:48:08 05/26/22 [...] Position Verified Availability Equipment, Medication Time Out GRAYSON CASON, Dequan Cline, Verified (If Participants Susana Rivas CST Applicable) [...] By: Susana Luna RN 05/26/22 13:48 Normal [facility] Main OR Preoperative Recordo n 05-26-2022 Main OR Preoperative Record Holding Area Document Type FTURO Summary Primary Physician: Dequan GALICIA MD Finalized Date/Time: 05/26/22 13:40:17 Pt. Name: JEREMIE BENNETT Annabelle Scott/Sex: 1940 Male Med Rec #: [id number] Physician: Dequan GALICIA MD Financial #: [id number] Pt. Type: O Room/Bed: / Admit/Disch: 05/26/22 [...] No Pain Comment: na Skin Integrity Intact, [place], Warm, & Dry Vitals - EU Blood Pressure 105/63 Pulse 83 bpm Respirations 16 br/min SPO2 91 % RN Reviewed Yes Last Modified By: Susana Luna RN 05/26/22 13:40:16 General Comments: temp:36.4 Finalized By: Susana Luna RN Document Signatures Signed By: Pam Tran LPN 05/26/22 13:03 Susana Luna RN 05/26/22 13:40 Normal [facility] Operative Reporton 3 Operative Report Patient: ROXANNE [...] on him and possibly institute CIC.. Normal [facility] Comment on above: Result Comment: Elec tronically Signed By: Dequan GALICIA MD\.br\Date and Time Signed: 05/26/22 13:48 EST US ARTERY UP EXT BILon 04-16 [...] ERWIN FALCON Date: 2022-04-16 17:21 Normal [facility] LACTOFERRIN FECAL QUANTon Lactoferrin, Fecal, Quant. 1.43 ug/mL(g) Normal 0.00-7.24 [facility] Comment on above: Result Comment: . Baseline [...] (IBS). Performed By: #### C XSTOOL #### [facility] [address] [place] [address] Dr. Ramsey Sanchez CBC AUTO DIFFon 03-10-2022 BASO # 0.1 103/ul Normal 0.0-0.1 [facility] Comment on above: Performed By: #### C BC #### [facility] [address] [place] [address] Dr. Ramsey Sanchez Basophils/100 WBC (Bld) 0.9 % Normal 0.2-2.0 [facility] Comment on above: Performed By: #### C BC #### [facility] [address] [place] [address] Dr. Ramsey Sanchez EO # 0.3 103/ul Normal 0.0-0.7 [facility] Comment on above: Performed By: #### C BC #### [facility] [address] [place] [address] Dr. Ramsey Sanchez Eosinophils/100 WBC (Bld) 2.6 % Normal 0.9-7.0 [facility] Comment on above: Performed By: #### C BC #### [facility] [address] [address] [address] Ramsey Sanchez Erythrocyte distribution width (RBC) [Ratio] 13.2 % Normal 11.0-15.0 [facility] Comment on above: Performed By: #### C BC #### [facility] [address] [address] [address] Ramsey Sanchez Hematocrit (Bld) [Volume fraction] 46.1 % Normal 42.0-54.0 [facility] Comment on above: Performed By: #### C BC #### [facility] [address] [address] [address] Ramsey Sanchez Hemoglobin (Bld) [Mass/Vol] 14.5 g/dL Normal 14.0-18.0 [facility] Comment on above: Performed By: #### C BC #### [facility] [address] [place] [address] Dr. Ramsey Sanchez IG # 0.15 10e3/ul Critically high 0.00-0.03 [facility] Comment on above: Performed By: #### C BC #### [facility] [address] [address] [address] Ramsey Sanchez IG % 1.3 % Critically high 0.0-0.5 [facility] Comment on above: Performed By: #### C BC #### [facility] [address] [place] [address] Dr. Ramsey Sanchez LYMPH # 2.7 103/ul Normal 1.2-3.8 [facility] Comment on above: Performed By: #### C BC #### [facility] [address] [place] [address] Dr. Ramsey Sanchez Lymphocytes/100 WBC (Bld) 23.0 % Normal 20.5-60.0 [facility] Comment on above: Performed By: #### C BC #### [facility] [address] [address] [address] Ramsey Sanchez MANUAL DIFF REQ NO Normal [facility] Comment on above: Performed By: #### C BC #### [facility] [address] [address] [address] Ramsey Sanchez MCH (RBC) [Entitic mass] 31.0 pg Normal 25.9-34.0 [facility] Comment on above: Performed By: #### C BC #### [facility] [address] [place] [address] Dr. Ramsey Sanchez MCHC (RBC) [Mass/Vol] 31.5 g/dL Normal 29.9-35.2 [facility] Comment on above: Performed By: #### C BC #### [facility] [address] [place] [address] Dr. Ramsey Sanchez MCV (RBC) [Entitic vol] 98.5 fL Critically high 80.0-94.0 [facility] Comment on above: Performed By: #### C BC #### [facility] [address] [place] [address] Dr. Ramsey Sanchez MONO # 0.9 103/ul Critically high 0.3-0.8 [facility] Comment on above: Performed By: #### C BC #### [facility] [address] [place] [address] Dr. Ramsey Sanchez Monocytes/100 WBC (Bld) 7.4 % Normal 1.7-12.0 [facility] Comment on above: Performed By: #### C BC #### [facility] [address] [place] [address] Dr. Ramsey Sanchez NEUT # 7.6 103/ul Critically high 1.4-6.5 [facility] Comment on above: Performed By: #### C BC #### [facility] [address] [place] [address] Dr. Ramsey Sanchez Neutrophils/100 WBC (Bld) 64.8 % Normal 43.0-75.0 [facility] Comment on above: Performed By: #### C BC #### [facility] [address] [place] [address] Dr. Ramsey Sanchez Platelet mean volume (Bld) [Entitic vol] 11.5 fL Normal 9.5-13.5 [facility] Comment on above: Performed By: #### C BC #### [facility] [address] [address] [address] Ramsey Sanchez PLT 243 103/ul Normal 150-450 [facility] Comment on above: Performed By: #### C BC #### [facility] [address] [address] [address] Ramsey Sanchez RBC 4.68 106/ul Critically low 4.70-6.10 [facility] Comment on above: Performed By: #### C BC #### [facility] [address] [address] [address] Ramsey Sanchez WBC 11.7 103/ul Critically high 4.0-11.0 [facility] Comment on above: Performed By: #### C BC #### [facility] [address] [place] [address] Dr. Ramsey Sanchez GLYCOHEMOGLOBIN A1Con 2021 ADA RECOMMENDATION SEE BELOW Normal [facility] Comment on above: Result Comment: ADA RECOMMENDED LIMIT 4.0 - 6.0 ADA THERAPEUTIC TARGET < 7.0 ACTION SUGGESTED > 7.0 Performed By: #### A 1C #### [facility] [address] [address] [address] Ramsey Sanchez Glucose [Mass/Vol] 123 mg/dL Normal [facility] Comment on above: Performed By: #### A 1C #### [facility] [address] [place] [address] Dr. Ramsey Sanchez HbA1c (Bld) [Mass fraction] 5.9 % Normal 4.5-6.2 [facility] Comment on above: Performed By: #### A 1C #### [facility] [address] [place] [address] Dr. Ramsey Sanchez LIPID PROFILEon 03-10-2022 CHOL-HDL RATIO NORM SEE BELOW Normal [facility] Comment on above: Result Comment: 3.3 - 4.4 LOW RISK 4.4 - 7.1 AVERAGE RISK 7.1 - 11.0 MODERATE RISK >11.0 HIGH RISK Performed By: #### C BC #### [facility] [address] [place] [address] Dr. Ramsey Sanchez Cholesterol [Mass/Vol] 121 mg/dL Normal <=200 [facility] Comment on above: Performed By: #### C BC #### [facility] [address] [address] [address] Ramsey Sanchez Cholesterol in HDL [Mass/Vol] 30 mg/dL Critically low 40-60 [facility] Comment on above: Performed By: #### C BC #### [facility] [address] [address] [address] Ramsey Sanchez Cholesterol in LDL [Mass/Vol] 47.6 mg/dL Normal [facility] Comment on above: Performed By: #### C BC #### [facility] [address] [place] [address] Dr. Ramsey Sanchez Cholesterol.total/ Cholesterol in HDL [Mass ratio] 4.0 {ratio} Normal [facility] Comment on above: Performed By: #### C BC #### [facility] [address] [place] [address] Dr. Ramsey Sanchez HDL NORMAL > or = 60 mg/dl - LO W CARDIOVASCULAR RISK <40 mg/dl - HIGH CARDIOVASCULAR RISK Normal [facility] Comment on above: Performed By: #### C BC #### [facility] [address] [place] [address] Dr. Ramsey Sanchez LDL CALC NORMAL SEE BELOW Normal [facility] Comment on above: Result Comment: <100 mg/dl OPTIMAL 100 - 129 mg/dl NEAR OR ABOVE OPTIMAL 130 - 159 mg/dl BORDERLINE HIGH 160 - 189 mg/dl HIGH >190 mg/dl VERY HIGH Performed By: #### C BC #### [facility] [address] [place] [address] Dr. Ramsey Sanchez Triglyceride [Mass/Vol] 217 mg/dL Critically high <=150 [facility] Comment on above: Performed By: #### C BC #### [facility] [address] [place] [address] Dr. Ramsey Sanchez VLDL CALC 43.4 mg/dL Normal [facility] Comment on above: Performed By: #### C BC #### [facility] [address] [place] [address] Dr. Ramsey Sanchez LIVER PROFILEon 03-10-2022 Albumin [Mass/Vol] 3.9 g/dL Normal 3.4-5.0 [facility] Comment on above: Performed By: #### C BC #### [facility] [address] [place] [address] Dr. Ramsey Sanchez Albumin/Globulin [Mass ratio] 1.1 {ratio} Normal [facility] Comment on above: Performed By: #### C BC #### [facility] [address] [place] [address] Dr. Ramsey Sancehz ALP [Catalytic activity/Vol] 75 U/L Normal 46-116 [facility] Comment on above: Performed By: #### C BC #### [facility] [address] [place] [address] Dr. Ramsey Sanchez ALT [Catalytic activity/Vol] 21 U/L Normal 16-63 [facility] Comment on above: Performed By: #### C BC #### [facility] [address] [place] [address] Dr. Ramsey Sanchez AST [Catalytic activity/Vol] 17 U/L Normal 15-37 [facility] Comment on above: Performed By: #### C BC #### [facility] [address] [place] [address] Dr. Ramsey Sanchez BILI, CONJUGATED 0.1 mg/dL Normal 0.0-0.2 [facility] Comment on above: Performed By: #### C BC #### [facility] [address] [place] [address] Dr. Ramsey Sanchez Bilirubin [Mass/Vol] 0.4 mg/dL Normal 0.2-1.0 [facility] Comment on above: Performed By: #### C BC #### [facility] [address] [place] [address] Dr. Ramsey Sanchez Globulin (S) [Mass/Vol] 3.5 g/dL Normal [facility] Comment on above: Performed By: #### C BC #### [facility] [address] [place] [address] Dr. Ramsey Sanchez Protein [Mass/Vol] 7.4 g/dL Normal 6.4-8.2 [facility] Comment on above: Performed By: #### C BC #### [facility] [address] [place] [address] Dr. Ramsey Sanchez MICROALBUMIN, RAND URon 10-2 mALB <1.3 Normal <=30.0 [facility] Comment on above: Performed By: #### M ALBR #### [facility] [address] [place] [address] Dr. Ramsey Sanchez PROF CHEM 8 (BAS METB)on Anion gap [Moles/Vol] 12.6 mmol/L Normal [facility] Comment on above: Performed By: #### C BC #### [facility] [address] [place] [address] Dr. Ramsey Sanchez Calcium [Mass/Vol] 8.9 mg/dL Normal 8.5-10.1 [facility] Comment on above: Performed By: #### C BC #### [facility] [address] [place] [address] Dr. Ramsey Sanchez Chloride [Moles/Vol] 103 mmol/L Normal 98-107 [facility] Comment on above: Performed By: #### C BC #### [facility] [address] [place] [address] Dr. Ramsey Sanchez CO2 [Moles/Vol] 28.5 mmol/L Normal 21.0-32.0 [facility] Comment on above: Performed By: #### C BC #### [facility] [address] [place] [address] Dr. Ramsey Sanchez Creatinine [Mass/Vol] 0.89 mg/dL Normal 0.70-1.30 [facility] Comment on above: Performed By: #### C BC #### [facility] [address] [place] [address] Dr. Ramsey Sanchez EGFR-AF LIBYAN >60 Normal >=60 [facility] Comment on above: Performed By: #### C BC #### [facility] [address] [place] [address] Dr. Ramsey Sanchez EGFR-NON AF LIBYAN >60 Normal >=60 [facility] Comment on above: Performed By: #### C BC #### [facility] [address] [place] [address] Dr. Ramsey Sanchez Glucose [Mass/Vol] 102 mg/dL Normal 74-106 [facility] Comment on above: Performed By: #### C BC #### [facility] [address] [place] [address] Dr. Ramsey Sanchez Potassium [Moles/Vol] 4.1 mmol/L Normal 3.5-5.1 [facility] Comment on above: Performed By: #### C BC #### [facility] [address] [place] [address] Dr. Ramsey Sanchez Sodium [Moles/Vol] 140 mmol/L Normal 136-145 [facility] Comment on above: Performed By: #### C BC #### [facility] [address] [place] [address] Dr. Ramsey Sanchez Urea nitrogen [Mass/Vol] 16.0 mg/dL Normal 7.0-18.0 [facility] Comment on above: Performed By: #### C BC #### [facility] [address] [place] [address] Dr. Ramsey Sanchez Urea nitrogen/Creatinin e [Mass ratio] 18.0 mg/mg Normal [facility] Comment on above: Performed By: #### C BC #### [facility] [address] [place] [address] Dr. Ramsey Sanchez STOOL CULTUREon 03-10-2022 Campylobacter Culture Final report Normal [facility] Comment on above: Performed By: #### C XSTOOL #### [facility] [address] [place] [address] Dr. Ramsey Sanchez E coli Shiga Toxin EIA Negative Normal Negative [facility] Comment on above: Performed By: #### C XSTOOL #### [facility] [address] [place] [address] Dr. Ramsey Sanchez Result 1 Comment Normal [facility] Comment on above: Result Comment: No S almonella or Shigella recovered. Performed By: #### C XSTOOL #### [facility] [address] [address] [address] Ramsey Sanchez Result Comment: No C ampylobacter species isolated. Salmonella/Shigell a Screen Final report Normal [facility] Comment on above: Performed By: #### C XSTOOL #### [facility] [address] [address] [address] Ramsey Sanchez VITAMIN D 25 OHon 03-10-2022 VIT D 25-OH 40.2 ng/mL Normal [facility] Comment on above: Performed By: #### V ITAD #### [facility] [address] [address] [address] Ramsey Sanchez VIT D RANGES SEE BELOW [facility] Comment on above: Result Comment: <20 ng/mL Vit D deficient 20 - <30 ng/mL Vit D insufficient 30 - 100 ng/mL Vit D sufficient >100 ng/mL Potential Toxicity Performed By: #### V ITAD #### [facility] [address] [address] [address] Ramsey Sanchez POC GLUCOSE LABon 08-31-2019 Glucose [Mass/Vol] 120 mg/dL High 70-100 [facility] Comment on above: Performed By: #### [id number] #### [facility] [address] [facility] [place] [address], [facility] Glucose [Mass/Vol] 114 mg/dL High 70-100 [facility] Comment on above: Performed By: #### [id number] #### [facility] [address] [facility] [place] [address], [place] Glucose [Mass/Vol] 136 mg/dL High 70-100 [facility] Comment on above: Performed By: #### [id number] #### [facility] [address] [facility] [place] [address], [place] BASIC METABOLIC PANELon - Calcium [Mass/Vol] 9.3 mg/dL Normal 8.6-10.3 [facility] Comment on above: Performed By: #### 0 0071 #### [facility] [address] [place] [address], [place] Chloride [Moles/Vol] 103 mmol/L Normal 98-107 [facility] Comment on above: Performed By: #### 0 0071 #### [facility] [address] [place] [address], [place] CO2 [Moles/Vol] 27 mmol/L Normal 21-31 [facility] Comment on above: Performed By: #### 0 0071 #### [facility] [address] [place] [address], [place] Creatinine [Mass/Vol] 1.04 mg/dL Normal 0.70-1.30 [facility] Comment on above: Performed By: #### 0 0071 #### [facility] [address] [place] [address], [place] GFR/1.73 sq M predicted among blacks MDRD (S/P/Bld) [Vol rate/Area] mL/min/{1.73_m2} Normal >60 [facility] Comment on above: Result Comment: Calc ulation may not be valid for patients over 70 years Performed By: #### 0 [id number] #### [facility] [address] [place] [address], [place] GFR/1.73 sq M predicted among non-blacks MDRD (S/P/Bld) [Vol rate/Area] mL/min/{1.73_m2} Normal >60 [facility] Comment on above: Result Comment: Calc ulation may not be valid for patients over 70 years Performed By: #### 0 [id number] #### [facility] [address] [place] [address], [place] Glucose [Mass/Vol] 128 mg/dL High 70-100 [facility] Comment on above: Performed By: #### 0 [id number] #### [facility] [address] [place] [address], [place] Potassium [Moles/Vol] 4.2 mmol/L Normal 3.5-5.1 [facility] Comment on above: Performed By: #### 0 1 #### [facility] [address] [place] [id number], [facility] Sodium [Moles/Vol] 139 mmol/L Normal 136-145 [facility] Comment on above: Performed By: #### 0 1 #### [facility] [address] [place] [address], [facility] Urea nitrogen [Mass/Vol] 20 mg/dL Normal 7-25 [facility] Comment on above: Performed By: #### 0 1 #### [facility] [address] [facility] [address] CBC COMPLETE BLOOD COUNT08-30-2019 Erythrocyte distribution width (RBC) [Ratio] 13.9 % Normal 11.5-15.0 [facility] Comment on above: Performed By: #### [id number] #### [facility] [address] [facility] [address] Hematocrit (Bld) [Volume fraction] 44.9 % Normal 39.0-50.0 [facility] Comment on above: Performed By: #### [id number] #### [facility] [address] [facility] [place] [address], [facility] Hemoglobin (Bld) [Mass/Vol] 14.5 g/dL Normal 13.0-17.0 [facility] Comment on above: Performed By: #### 5 [id number] #### [facility] [address] [facility] [address], [facility] MCH (RBC) [Entitic mass] 30.7 pg Normal 27.0-33.0 [facility] Comment on above: Performed By: #### 5 [id number] #### [facility] [address] [place] [address], [facility] MCHC (RBC) [Mass/Vol] 32.3 g/dL Normal 32.0-35.0 [facility] Comment on above: Performed By: #### 5 [id number] #### [facility] [address] MCV (RBC) [Entitic vol] 95.1 fL Normal 82.0-98.0 [facility] Comment on above: Performed By: #### 5 [id number] #### [facility] [address] Nucleated RBC/100 WBC (Bld) [Ratio] 0 % Normal 0-0 [facility] Comment on above: Performed By: #### 5 [id number] #### [facility] [address] PLAT CNT 238 10*3/uL Normal 150-400 [facility] Comment on above: Performed By: #### 5 [id number] #### [facility] [address] RBC (Bld) [#/Vol] 4.72 10*6/uL Normal 4.20-5.70 [facility] Comment on above: Performed By: #### 5 [id number] #### [facility] [address] [place] [address], [facility] WBC (Bld) [#/Vol] 12.83 10*3/uL High 4.00-10.60 [facility] Comment on above: Performed By: #### 5 [id number] #### [facility] [address] Cardiovascular Lab Reporton 08-30-2019 Cardiovascular Lab Report [facility] [place] Patient Name: Jeremie Bennett [facility] MR #: [id number] Physician: Margaret Arellano, Department of M.D. Medicine Service Date: 08/30/2019 Division of Birthdate: 1940 Cardiology Room #: 3AB 321635 Adult Cardiovascular Services [address] [place], [place] [address] Cardiovascular Laboratory Report FINAL IMPRESSIONS: 1. 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 2. 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 3. 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 4. Ppdk-lj-ycwklrqm disease of the left anterior descending coronary [...] Follow up with Dr. Arellano in the [place] office in the next 2 to 4 [...] left common femoral artery was obtained. A 6-Maldivian 11 cm sheath was inserted without difficulty. Limited femoral angiography was performed. Bilateral selective coronary angiography was performed using JL4 and JR4 catheters. After reviewing the images, it was elected to proceed with an interventional procedure. A 6-Maldivian XB 3.5 guide catheter was advanced over [...] conclude the procedure. Attempts to deploy a 6-Maldivian MynxGrip closure device were unsuccessful. Therefore, manual [...] A Margaret Arellano M.D. Date Dict: 08/30/2019/01:09 P/Margaret Arellano M.D. Date Trans: 08/30/2019 05:00 P/emmanuelle [id number] cc: Sabino Cooper MD [place] [address] Normal [facility] POC GLUCOSE LABon 08-30-2019 Glucose [Mass/Vol] 172 mg/dL High 70-100 [facility] Comment on above: Performed By: #### [id number] #### [facility] [address] [facility] [place] [address], [facility] Glucose [Mass/Vol] 138 mg/dL High 70-100 [facility] Comment on above: Performed By: #### 8 [id number] #### [facility] [address] [facility] [place] [address], [facility] Vital Signs Date Time Vital Sign Value Performing Clinician Facility 05-31-2023 13:30-0500 Body height 167.64 cm Involver Other [facility] Other 05-31-2023 13:30-0500 Body mass index (BMI) [Ratio] 27.6 kg/m2 [facility] Other [facility] Other 05-31-2023 13:30-0500 Body weight 77.57 kg Gisele Brunson Other [facility] Other 05-31-2023 13:30-0500 Diastolic blood pressure 55 mm[Hg] Gisele Brunson Other [facility] Other 05-31-2023 13:30-0500 SaO2% (BldA) [Mass fraction] 94 % Gisele Brunson Other [facility] Other 05-31-2023 13:30-0500 Systolic blood pressure 104 mm[Hg] Gisele Brunson Other [facility] Other 05-25-2023 12:21-0500 Blood Pressure Location Anjali Flori [facility] 05-25-2023 12:21-0500 Diastolic blood pressure 65 mm[Hg] Anjali Flori [facility] 05-25-2023 12:21-0500 Heart rate 88 /min Anjali Staffordmetz [facility] 05-25-2023 12:21-0500 Respiratory rate 16 /min Anjali Staffordmetz [facility] 05-25-2023 12:21-0500 Systolic blood pressure 113 mm[Hg] Anjali Staffordmetz [facility] 04-01-2023 13:15-0500 Body temperature 97.11 [degF] Vaishali Pringle MD Work Phone: [facility] 04-01-2023 13:15-0500 Body weight 75.75 kg Vaishali Pringle MD Work Phone: [facility] 04-01-2023 13:15-0500 Diastolic blood pressure 66 mm[Hg] Vaishali Pringle MD Work Phone: [facility] 04-01-2023 13:15-0500 Heart rate 70 /min Vaishali Pringle MD Work Phone: [facility] 04-01-2023 13:15-0500 SaO2% (BldA) [Mass fraction] 97 % Vaishali Pringle MD Work Phone: [facility] 04-01-2023 13:15-0500 Systolic blood pressure 109 mm[Hg] Vaishali Pringle MD Work Phone: [facility] 03-10-2023 08:53-0400 Blood Pressure Location Anjali Flori [facility] 03-10-2023 08:53-0400 Body temperature 97.16 [degF] Anjali Flori [facility] 03-10-2023 08:53-0400 Diastolic blood pressure 72 mm[Hg] Anjali Flori [facility] 03-10-2023 08:53-0400 Heart rate 63 /min Anjali Flori [facility] 03-10-2023 08:53-0400 Systolic blood pressure 117 mm[Hg] Anjali Flori [facility] 02-25-2023 13:27-0400 Blood Pressure Location Anjali Flori [facility] 02-25-2023 13:27-0400 Body temperature 98.06 [degF] Anjali Flori [facility] 02-25-2023 13:27-0400 Diastolic blood pressure 75 mm[Hg] Anjali Flori [facility] 02-25-2023 13:27-0400 Heart rate 85 /min Anjali Flori [facility] 02-25-2023 13:27-0400 Respiratory rate 16 /min Anjali Rodriguezz [facility] 02-25-2023 13:27-0400 Systolic blood pressure 122 mm[Hg] Anjali Ruby [facility] 01-29-2023 10:15-0400 Body height 167.64 cm Gisele Brunson Other [facility] Other 01-29-2023 10:15-0400 Body mass index (BMI) [Ratio] 28.24 kg/m2 Gisele Brunson Other [facility] Other 01-29-2023 10:15-0400 Body weight 79.38 kg Gisele Brunson Other [facility] Other 01-29-2023 10:15-0400 Diastolic blood pressure 75 mm[Hg] Gisele Brunson Other [facility] Other 01-29-2023 10:15-0400 SaO2% (BldA) [Mass fraction] 95 % Gisele Brunson Other [facility] Other 01-29-2023 10:15-0400 Systolic blood pressure 118 mm[Hg] Gisele Brunson Other [facility] Other 01-12-2023 09:22-0400 Blood Pressure Location Anjali Staffordmetz [facility] 01-12-2023 09:22-0400 Body temperature 96.98 [degF] Anjali Flori [facility] 01-12-2023 09:22-0400 Diastolic blood pressure 68 mm[Hg] Anjali Ruby [facility] 01-12-2023 09:22-0400 Heart rate 69 /min Anjali Ruby [facility] 01-12-2023 09:22-0400 Systolic blood pressure 109 mm[Hg] Anjali Ruyb [facility] 10-13-2022 09:45-0400 Body height 167.64 cm Gisele Brunson Other [facility] Other 10-13-2022 09:45-0400 Body mass index (BMI) [Ratio] 27.92 kg/m2 Gisele Brunson Other [facility] Other 10-13-2022 09:45-0400 Body weight 78.47 kg Gisele Brunson Other [facility] Other 10-13-2022 09:45-0400 Diastolic blood pressure 70 mm[Hg] Gisele Brunson Other [facility] Other 10-13-2022 09:45-0400 SaO2% (BldA) [Mass fraction] 95 % Gisele Brunson Other [facility] Other 10-13-2022 09:45-0400 Systolic blood pressure 116 mm[Hg] Gisele Brunson Other [facility] Other 09-22-2022 18:14-0400 Body temperature 99.86 [degF] Gordy Sánchez [facility] 09-22-2022 16:28-0400 Body temperature 101.3 [degF] Gordy Sánchez [facility] 09-22-2022 16:28-0400 Diastolic blood pressure 61 mm[Hg] Gordy Sánchez [facility] 09-22-2022 16:28-0400 Heart rate 79 /min Gordy Sánchez [facility] 09-22-2022 16:28-0400 Respiratory rate 17 /min Gordy Sánchez [facility] 09-22-2022 16:28-0400 SaO2% (BldA) [Mass fraction] 93 % Gordy Sánchez [facility] 09-22-2022 16:28-0400 Systolic blood pressure 111 mm[Hg] Gordy Sánchez [facility] 09-22-2022 14:10-0400 Body height 167.64 cm Griselda Pennington Other [facility] Other 09-22-2022 14:10-0400 Body mass index (BMI) [Ratio] 29.7 kg/m2 Griselda Murphymond Other [facility] Other 09-22-2022 14:10-0400 Body temperature 100 [degF] Griselda Murphymond Other [facility] Other 09-22-2022 14:10-0400 Body weight 83.46 kg Griselda Murphymond Other [facility] Other 09-22-2022 14:10-0400 Respiratory rate 18 /min Griselda Murphymond Other [facility] Other 09-22-2022 14:10-0400 SaO2% (BldA) [Mass fraction] 93 % Griselda Aditi Other [facility] Other 07-29-2022 10:15-0400 Body height 167.64 cm Erwin Salazar Other [facility] Other 07-29-2022 10:15-0400 Body mass index (BMI) [Ratio] 30.02 kg/m2 Erwin Salazar Other [facility] Other 07-29-2022 10:15-0400 Body weight 84.37 kg Erwin Salazar Other [facility] Other 07-29-2022 10:15-0400 Diastolic blood pressure 65 mm[Hg] Erwin Salazar Other [facility] Other 07-29-2022 10:15-0400 SaO2% (BldA) [Mass fraction] 94 % Erwin Salazar Other [facility] Other 07-29-2022 10:15-0400 Systolic blood pressure 102 mm[Hg] Erwin Salazar Other [facility] Other 11-29-2021 10:25-0400 Body height 167.64 cm Leti Garcia Other [facility] Other 11-29-2021 10:25-0400 Body temperature 96.9 [degF] Leti Garcia Other [facility] Other 11-29-2021 10:25-0400 Respiratory rate 18 /min Leti Garcia Other [facility] Other 11-29-2021 10:25-0400 SaO2% (BldA) [Mass fraction] 93 % Leti Garcia Other [facility] Other Encounters Encounter Date Encounter Type Care Provider Facility Start: 05-31-2023 End: 05-31-2023 ambulatory Igsele Brunson Facility:[facility] Start: 05-31-2023 Office outpatient visit 25 minutes Gisele Brunson [facility] Start: 05-31-2023 End: 05-31-2023 ambulatory MD Sabino Cooper Work Phone: [facility] Work Phone: Start: 05-31-2023 End: 05-31-2023 Patient encounter procedure MD Sabino Cooper Work Phone: [facility]-Sleep Lab Work Phone: Start: 05-25-2023 ambulatory Anjali Ruby Facili ty:[facility] Start: 05-25-2023 End: 05-25-2023 Patient encounter procedure Anjali Ruby [facility] Start: 05-25-2023 End: 05-25-2023 ambulatory DANIEL [facility] Start: 04-15-2023 End: 04-16-2023 ambulatory Gordy Powers Facility:[facility] Start: 04-14-2023 End: 04-14-2023 ambulatory [facility] Start: 04-05-2023 Telephone encounter Vaishali orr MD Work Phone: General Surgery Comment on above: [facility] Start: 04-01-2023 End: 04-01-2023 ambulatory VAISHALI PRINGLE Facility:[facility] Start: 04-01-2023 End: 04-01-2023 Patient encounter procedure Vaishali Pringle MD Work Phone: General Surgery Comment on above: IPMN (intraductal pa pillary mucinous neoplasm) (Primary Dx) Start: 03-10-2023 End: 03-11-2023 ambulatory Anjali Ruby Facility:[facility] Start: 03-10-2023 End: 03-11-2023 ambulatory Anjali Ruby Facility:[facility] Start: 03-10-2023 End: 03-10-2023 Patient encounter procedure Anjali Ruby [facility] Start: 03-10-2023 End: 03-10-2023 Patient encounter procedure Anjali Ruby [facility] Start: 02-25-2023 End: 02-26-2023 ambulatory Anjali Ruby Facility:[facility] Start: 02-25-2023 End: 02-25-2023 Patient encounter procedure Anjali Ruby [facility] Start: 02-16-2023 End: 02-16-2023 ambulatory Sabino Cooper Facility:[facility] Start: 02-16-2023 End: 02-16-2023 ambulatory MD Sabino Cooper Work Phone: [facility] Work Phone: Start: 02-16-2023 End: 02-16-2023 Patient encounter procedure MD Sabino Cooper Work Phone: [facility] [place] Work Phone: Start: 02-15-2023 End: 02-16-2023 ambulatory Yajaira Roque Facility:[facility] Jasmin castano Start: 01-29-2023 [facility] Start: 01-29-2023 End: 01-29-2023 ambulatory MD Sabino Cooper Work Phone: [facility] Work Phone: Start: 01-29-2023 End: 01-29-2023 Patient encounter procedure MD Sabino Cooper Work Phone: [facility]-Sleep Lab Work Phone: Start: 01-27-2023 End: 01-27-2023 ambulatory Inez Hednerson Facility:[id number] Start: 01-27-2023 End: 01-27-2023 ambulatory MD Sabino Cooper Work Phone: [facility] Work Phone: Start: 01-27-2023 End: 01-27-2023 Patient encounter procedure MD Sabino Cooper Work Phone: [facility]-Pacemaker Check Start: 01-12-2023 End: 01-13-2023 ambulatory [facility]ali Lyssa [facility]i [facility] Start: 01-12-2023 End: 01-12-2023 Patient encounter procedure Anjali Lyssa Flori [facility] Start: 12-17-2022 End: 12-18-2022 ambulatory Anjali Ruby Facility:[facility] Start: 12-17-2022 End: 12-17-2022 Patient encounter procedure Anjali Lyssa StaffordFlori [facility] Start: 12-15-2022 End: 12-16-2022 ambulatory Sab[facility] Cooper [facility] Start: 12-09-2022 End: 12-09-2022 ambulatory Erwin Salazar Facility:[facility] Start: 12-09-2022 End: 12-09-2022 ambulatory MD Sabino Cooper Work Phone: [facility] Work Phone: Start: 12-09-2022 End: 12-09-2022 Patient encounter procedure MD Sabino Cooper Work Phone: [facility]-Sleep Lab Work Phone: Start: 11-23-2022 End: 11-24-2022 ambulatory Sabino Cooper Facility:[facility] Start: 11-23-2022 End: 11-23-2022 Lab Drop off Sabino Cooper [facility] Start: 11-18-2022 End: 11-18-2022 ambulatory DANIEL PATEL [facility] Start: 11-10-2022 End: 11-10-2022 ambulatory JOSE R ALEXANDER [facility] Start: 11-04-2022 End: 11-05-2022 ambulatory Sabino Cooper Facility:[facility] Start: 11-02-2022 End: 11-03-2022 ambulatory Sabino Cooper Facility:[facility] Start: 10-13-2022 Office outpatient visit 15 minutes Gisele Brunson [place] Start: 10-13-2022 End: 10-13-2022 ambulatory Gisele Brunson Facility:[facility] Start: 10-13-2022 End: 10-13-2022 ambulatory MD Mg London Work Phone: [facility] Work Phone: Start: 10-13-2022 End: 10-13-2022 Patient encounter procedure MD Mg London Work Phone: [facility]-Sleep Lab Work Phone: Start: 10-05-2022 End: 10-06-2022 ambulatory Sabino Cooper Facility: [facility] Start: 09-29-2022 End: 09-29-[address] EDY CARNEY Facility:[facility] Start: 09-24-2022 End: 09-25-[address] MG LONDON Facility:[facility] Start: 09-22-2022 End: 09-22-2022 Emergency department patient visit Gordy Sánchez Facility:[facility] Start: 09-22-2022 End: 09-22-2022 Emergency department patient visit Gordy Sánchez [facility] Start: 09-22-2022 Office outpatient visit 15 minutes Griselda Pennington [facility] Start: 09-22-2022 End: 09-22-2022 ambulatory BETTY BUTTS . [facility] [employer] Other Start: 08-27-2022 ambulatory Sabino Cooper Facility :[facility] Start: 08-25-2022 End: 08-26-2022 ambulatory NARENDRANATH GIBRANSHMIPATHY . Facility:[facility] Start: 08-24-2022 End: 08-25-2022 ambulatory Sabino Cooper Facility:[facility] Start: 08-21-2022 ambulatory Anjali Ruby Facility :[facility] Start: 08-12-2022 ambulatory Facility:[id number] Start: 08-12-2022 End: 08-12-2022 ambulatory Missy Westfall Facility:[facility] Start: 08-12-2022 End: 08-12-2022 ambulatory MD Mg London Work Phone: [facility] Work Phone: Start: 08-12-2022 End: 08-12-2022 Patient encounter procedure MD Mg London Work Phone: [facility] Work Phone: Start: 08-11-2022 End: 08-11-2022 ambulatory BETTY LEARYSHMIPATHY . Facility:[facility] Start: 07-29-2022 Office outpatient ne w 60 minutes Erwin Salazar [place] Start: 07-29-2022 End: 07-29-2022 ambulatory Erwin Salazar Facility:[facility] Start: 07-29-2022 End: 07-29-2022 ambulatory MD Mg London Work Phone: [facility] Work Phone: Start: 07-29-2022 End: 07-29-2022 Patient encounter procedure MD Mg London Work Phone: [facility]-Sleep Lab Work Phone: Start: 07-23-2022 End: 07-24-2022 ambulatory SONNY Bermudez Facility:[facility] Start: 07-22-2022 End: 03-09-2023 ambulatory ALANNA HARDY Facility:[facility] Start: 07-21-2022 ambulatory Facility:[id number] Start: 07-21-2022 End: 07-21-2022 ambulatory Missy Westfall Facility:[facility] Start: 07-21-2022 End: 07-21-2022 ambulatory MD Mg London Work Phone: [facility] Work Phone: Start: 07-21-2022 End: 07-21-2022 Patient encounter procedure MD Mg London Work Phone: [facility]-Pacemaker Check Start: 06-18-2022 End: 07-10-2022 ambulatory SUSANA COPPOLA Facility:[facility] Start: 06-16-2022 End: 06-17-2022 ambulatory SUSANA COPPOLA Facility:[facility] Start: 06-11-2022 End: 06-12-2022 ambulatory ALANNA Araiza [facility] Facility:H1 Start: 05-26-2022 End: 05-27-2022 ambulatory Dequan GALICIA Facility:[facility] Start: 05-26-2022 End: 05-26-2022 Patient encounter procedure Dequan GALICIA [facility] Start: 04-16-2022 End: 04-17-[address] ERWIN FALCON Facility:[facility]1 Start: 03-19-[address] AMANDA CLANCY . Faci lity:H1 Start: 03-12-2022 End: 03-13-2022 ambulatory ALANNA Araiza [facility] Facility:H1 Start: 03-10-2022 End: 03-11-2022 ambulatory DIEGO COYNE Facility:[facility] Start: 03-06-2022 End: 03-07-[address] DOCTOR GOFF Facility:[facility] Start: 12-25-2021 End: 12-26-2021 ambulatory SONNY Bermudez Facility:[facility] Start: 12-01-2021 End: 12-02-2021 ambulatory [facility] Facility:[facility]1 Start: 11-29-2021 End: 11-29-2021 ambulatory Leti Garcia Other [employer] Other Start: 11-29-2021 Office outpatient visit 15 minutes Leti Garcia [facility] Start: 11-13-2021 End: 12-19-2021 ambulatory IFEOMA JARQUIN Facility: Start: 09-04-2020 End: 09-04-2020 Patient encounter procedure Param Cosme Work Phone: [facility] Start: 08-15-2020 End: 08-15-2020 Patient encounter procedure Param Cosme -Pacemaker Check Start: 08-30-2019 End: 08-31-2019 Patient encounter procedure EHAB A NUNOTAFABRICIO Facility:[facility] Procedures Date Procedure Procedure Detail Performing Clinician Start: 04-15-2023 Esophagogastroduodenoscopy Anjali mcwilliams Start: 02-16-2023 MR abdomen wo con MD Sabino Cooper Work Phone: Start: 08-12-2022 MRI of cervical spine without contrast MD Mg London Work Phone: Start: 08-12-2022 XR pre/post mri xray MD Mg [place] Work Phone: Start: 08-12-2022 MRI of right ankle MD Mg London Work Phone: Start: 03-10-2022 PSA screening ALANNA HARDY Comment on above: Performed By: #### CBC #### [facility] [address] [place] [address] Dr. Ramsey Sanchez Start: 05-20-2020 Esophagogastroduodenoscopy Dequan [...] Activity Detail Author Start: 11-08-2023 ambulatory Ambulatory Facility:[facility] Start: 05-31-2023 ambulatory Ambulatory Facility:[facility] Start: 01-15-2023 Covid-19 Vaccine ( season) Covid-19 Vaccine ( season) [facility] Start: 01-15-2023 Influenza vaccination [facility] Start: 11-12-2022 ambulatory Ambulatory Facility: Start: 05-17-2022 Advance Directive Discussion Advance Directive Discussion [facility] Start: 05-17-2022 Depression Assessment Depression Assessment [facility] Start: 09-04-2020 MRI of right ankle MR ankle RT wo con [facility] Start: 09-04-2020 XR pre/post mri xray XR pre/post mri xray [facility] Start: 01-30-2015 Pneumococcal Vaccine: 65+ (2 - PPSV23 or PCV20) Pneumococcal Vaccine: 65+ (2 - PPSV23 or PCV20) [facility] Start: 1999 RSV Vaccine (1 - 1-dose 60+ series) RSV Vaccine (1 - 1-dose 60+ series) [facility] Start: 10-29-1989 Shingrix Vaccine (1 of 2) Shingrix Vaccine (1 of 2) [facility] Start: 10-29-1984 Diabetes Screening Diabetes Screening [facility] Start: 10-29-1958 Urine microalbumin profile DTaP,Tdap,Td Vaccine (1 - Tdap) [facility] Immunizations Immunization Date Immunization Notes Care Provider Magy brantley 04-12-2023 influenza virus vaccine, unspecified formulation Anjali Ruby [facility] 11-25-2021 SARS-CoV-2 mRNA (fopfhxcgstp-gpex-dfvrn se) vaccine Sabino Cooper [facility] 03-06-2021 SARS-CoV-2 (COVID-19 ) mRNA BNT-162b2 vax Sabino Cooper [facility] Comment on above: Result Comment: 2022: [id number] 02-18-2021 influenza virus vaccine, unspecified formulation [facility]ino [facility] 06-27-2020 SARS-CoV-2 (COVID-19 ) Ad26 vaccine, recombinant Dequan GALICIA [facility] 06-27-2020 SARS-CoV-2 (COVID-19 ) mRNA BNT-162n0 vax Dequan GALICIA [facility] 06-06-2020 SARS-CoV-2 (COVID-19 ) Ad26 vaccine, recombinant Dequan GALICIA [facility] 06-06-2020 SARS-CoV-2 (COVID-19 ) mRNA BNT-162l4 vax Dequan GALICIA [facility] 02-14-2020 influenza virus vaccine, unspecified formulation [facility]ino [facility] 01-22-2018 influenza, unspecifi ed formulation [facility]ino [facility] 01-30-2014 pneumococcal conjuga te vaccine, 13 valent [facility]ino [facility] Payers Date Payer Category Payer Medicare [facility] MEDICARE [facility] AARP [employer] HMO [id number] 2022-Present [phone] [address] [address] [place] [address] HMO [id number] 2022 Medicare [id number] 2022 Private Health Insurance [id number] 2022 Self-pay [id number] 1959 Medicare [id number] 1959 Medicare [id number] 1959 Medicare [id number] 1959 Unknown [id number] 1939 Unknown [id number] 2.16.840.1.883017.3.579.2. 647 1939 Unknown [id number] 2.16.840.1.722243.3.579.2. 593 1939 Unknown [id number] 2.16.840.1.917279.3.579.2. 593 1939 Unknown [id number] 2.16.840.1.889019.3.579.2. 593 1939 Unknown [id number] 2.16.840.1.495822.3.579.2. 593 1939 Unknown [id number] 2.16.840.1.774890.3.579.2. 593 1939 Unknown [id number] 2.16.840.1.524637.3.579.2. 593 1939 Unknown [id number] 2.16.840.1.752530.3.579.2. 593 1939 Unknown [id number] 2.16.840.1.314549.3.579.2. 593 1939 Unknown [id number] 2.16.840.1.643184.3.579.2. 593 1939 Unknown [id number] 2.16.840.1.011866.3.579.2. 593 1939 Unknown [id number] 2.16.840.1.830442.3.579.2. 593 1939 Unknown [id number] 2.16.840.1.115901.3.579.2. 593 1939 Unknown [id number] 2.16.840.1.801967.3.579.2. 593 1939 Unknown [id number] 2.16.840.1.756399.3.579.2. 593 1939 Unknown [id number] 2.16.840.1.152697.3.579.2. 593 1939 Unknown [id number] 2.16.840.1.968788.3.579.2. 593 1939 Unknown [id number] 2.16.840.1.314259.3.579.2. 593 1939 Unknown [id number] 2.16.840.1.200531.3.579.2. 593 1939 Unknown [id number] 2.16.840.1.783689.3.579.2. 593 1939 Unknown [id number] 2.16.840.1.875550.3.579.2. 593 1939 Unknown [id number] 2.16.840.1.768494.3.579.2. 356 1939 Unknown [id number] 2.16.840.1.894711.3.579.2. 356 1939 Unknown [id number] 2.16.840.1.598239.3.579.2. 356 1939 Unknown [id number] 2.16.840.1.137834.3.579.2. 727 1939 Unknown [id number] 2.16.840.1.407194.3.579.2. 727 1939 Unknown [id number] 2.16.840.1.198075.3.579.2. 727 1939 Unknown [id number] 2.16.840.1.283011.3.579.2. 1939 Unknown [id number] 2.16.840.1.924715.3.579.2. 1939 Unknown [id number] 2.16.840.1.593089.3.579.2. 1939 Unknown [id number] 2.16.840.1.262492.3.579.2. 1939 Unknown [id number] 2.16.840.1.408976.3.579.2. 1939 Unknown [id number] 2.16.840.1.564917.3.579.2 1939 Unknown [id number] 2.16.840.1.116341.3.579.2 1939 Unknown [id number] 2.16.840.1.904201.3.579.2 1939 Unknown [id number] 2.16.840.1.396877.3.579.2 1939 Unknown [id number] 2.16.840.1.303907.3.579.2 1939 Unknown [id number] 2.16.840.1.952904.3.579.2 1939 Unknown [id number] 2.16.840.1.401528.3.579.2 1939 Unknown [id number] 2.16.840.1.023783.3.579.2 1939 Unknown [id number] 2.16.840.1.238402.3.579.2 1939 Unknown [id number] 2.16.840.1.072243.3.579.2 1939 Unknown [id number] 2.16.840.1.584573.3.579.2. 727 1939 Unknown [id number] 2.16.840.1.504073.3.579.2. 727 Unknown [id number] 2.16.840.1.739398.3.579.2. 531 Unknown [id number] 2.16.840.1.981541.3.579.2. 531 Unknown [id number] 2.16.840.1.946663.3.579.2. 531 Unknown [id number] 2.16.840.1.861583.3.579.2. 531 Unknown [id number] 2.16.840.1.602866.3.579.2. 531 Unknown [id number] 2.16.840.1.463466.3.579.2. 531 Unknown [id number] 2.16840.1.963561.3.579.2. 531 Unknown [id number] 2.16.840.1.704157.3.579.2. 531 Unknown [id number] 2.16.840.1.859511.3.579.2. 531 Unknown [id number] 2.16.840.1.933043.3.579.2. 531 Social History Date Type Detail Facility Tobacco smoking stat [facility] Unknown if ever smoked [facility] Start: 1940 Sex Assigned At Male F [facility] Start: 04-01-2023 Sex Assigned At F [facility] Start: 04-27-2022 End: 05-25-2023 Tobacco smoking status Ex-smoker (finding) [facility] Comment on above: former smoker quit a t age 41, 1 PPD Tobacco smoking status Never [facility] Comment on above: former smoker quit a t age 41, 1 PPD History of tobacco use Current smoker [facility] History of tobacco use Cigarette Smoker C [facility] Start: 04-01-2023 Tobacco use and exposure Smokeless tobacco non-user [facility] Start: 04-01-2023 History of Social function [facility] Start: 1940 Sex Assigned At Not on file C [facility] Medical Equipment Procedure Code Equipment Code Equipment [...] /State Functional Status Date Assessment Result Facility 05-25-2023 Functional Status N/A [facility] 03-10-2023 Functional Status N/A [facility] 02-25-2023 Functional Status N/A [facility] 01-12-2023 Functional Status N/A [facility] 09-22-2022 Functional Status N/A [facility] 05-19-2022 Functional Status N/A [facility] Clinical Notes 11-29-2021 to 05-31-2023 Note Date & Type Note Facility 05-31-2023 Evaluation note Encounter Date Diagnosis Assessment Notes May, Obstructive sleep apnea (ICD-10 - G47.33) Fortunately, the patient is using and benefiting from treatment. Download was reviewed with patient, His AHI is slightly elevated at 8.7, however a majority of those apneas register as centrals, however those are likely artifact according to his recent sleep study. We will adjust his pressures to the recommended optimal pressure settings of 16/8 PS 4 per the recent sleep study results--this is a 2nd request as last year's request was not completed. Patient did try to use the Talia FFM, as most recent sleep study showed was the optimal fit, however patient could not tolerate wearing this mask. He prefers the nasal mask, however he sleeps with his mouth open and does not tolerate the chin strap b/c it's too hot. I recommended that he try the nasal with mouth tape and/or go forward with a mask fitting to find a better fitting FFM. I will re-evaluate his ISIDRO in 2 months. A prescription was sent to the [facility] for new supplies throughout the year. He was encouraged to continue to use his machine nightly, throughout the entire night as this does provide clinical benefit. Call if problems. 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 May, Other Call if any questions or problems. Patient is advised to work on healthy diet choices and appropriate servings, weight control, regular exercise as directed, and reduce fat intake. Use machine regularly, and keep up with mask changes as needed. Call if problems with mask toleration, increased sleepiness, or poor response to treatment. . [employer] Other 01-09-2024 Hospital Discharge instructions Patient Education 05/25/2023 12:29:33 Food Choices for Gastroesophageal Reflux Disease, Adult Food Choices for Gastroesophageal Reflux Disease, Adult When you have gastroesophageal reflux disease (GERD), the foods you eat and your eating habits are very important. Choosing the right foods can help ease the discomfort of GERD. Consider working witha dietitian to help you make healthy food choices. What are tips for following this plan? Reading food labels Look for foods that are low in saturated fat. Foods that have less than 5% of daily value (DV) of fat and 0 g of trans fats may help with your symptoms. Cooking Cook foods using methods other than frying. This may include baking, steaming, grilling, or broiling. These are all methods that do not need a lot of fat for cooking. To add flavor, try to use herbs that are low in spice and acidity. Meal planning Choose healthy foods that are low in fat, such as fruits, vegetables, whole grains, low-fat dairy products, lean meats, fish, and poultry. Eat frequent, small meals instead of three large meals each day. Eat your meals slowly, in a relaxed setting. Avoid bending over or lying down until 2 3 hours after eating. Limit high-fat foods such as fatty meats or fried foods. Limit your intake of fatty foods, such as oils, butter, and shortening. Avoid the following as told by your health care provider: ?Foods that cause symptoms. These may be different for different people. Keep a food diary to keep track of foods that cause symptoms. ?Alcohol. ?Drinking large amounts of liquid with meals. ?Eating meals during the 2 3 hours before bed. Lifestyle Maintain a healthy weight. Ask your health care provider what weight is healthy for you. If you need to lose weight, work with your health care provider to do so safely. Exercise for at least 30 minutes on 5 or more days each week, or as told by your health care provider. Avoid wearing clothes that fit tightly around your waist and chest. Do not use any products that contain nicotine or tobacco. These products include cigarettes, chewing tobacco, and vaping devices, such as e-cigarettes. If you need help quitting, ask your health careprovider. Sleep with the head of your bed raised. Use a wedge under the mattress or blocks under the bed frame to raise the head of the bed. Chew sugar-free gum after mealtimes. What foods should I eat? Eat a healthy, well-balanced diet of fruits, vegetables, whole grains, low-fat dairy products, leanmeats, fish, and poultry. Each person is different. Foods that may trigger symptoms in one person may not trigger any symptoms in another person. Work with your health care provider to identify foodsthat are safe for you. The items listed above may not be a complete list of recommended foods and beverages. Contact a dietitian for more information. What foods should I avoid? Limiting some of these foods may help manage the symptoms of GERD. Everyone is different. Consult adietitian or your health care provider to help you identify the exact foods to avoid, if any. Fruits Any fruits prepared with added fat. Any fruits that cause symptoms. For some people this may include citrus fruits, such as oranges, grapefruit, pineapple, and nury. Vegetables Deep-fried vegetables. Maldivian fries. Any vegetables prepared with added fat. Any vegetables that cause symptoms. For some people, this may include tomatoes and tomato products, chili peppers, onions and garlic, and horseradish. Grains Pastries or quick breads with added fat. Meats and other proteins High-fat meats, such as fatty beef or pork, hot dogs, ribs, ham, sausage, salami, and shaver. Fried meat or protein, including fried fish and fried chicken. Nuts and nut butters, in large amounts. Dairy Whole milk and chocolate milk. Sour cream. Cream. Ice cream. Cream cheese. Milkshakes. Fats and oils Butter. Margarine. Shortening. Ghee. Beverages Coffee and tea, with or without caffeine. Carbonated beverages. Sodas. Energy drinks. Fruit juice made with acidic fruits, such as orange or grapefruit. Tomato juice. Alcoholic drinks. Sweets and desserts Chocolate and cocoa. Donuts. Seasonings and condiments Pepper. Peppermint and spearmint. Added salt. Any condiments, herbs, or seasonings that cause symptoms. For some people, this may include ricardo, hot sauce, or vinegar-based salad dressings. The items listed above may not be a complete list of foods and beverages to avoid. Contact a dietitian for more information. Questions to ask your health care provider Diet and lifestyle changes are usually the first steps that are taken to manage symptoms of GERD. If diet and lifestyle changes do not improve your symptoms, talk with your health care provider abouttaking medicines. Where to find more information [employer]: aboutgerd.org Summary When you have gastroesophageal reflux disease (GERD), food and lifestyle choices may be very helpful in easing the discomfort of GERD. Eat frequent, small meals instead of three large meals each day. Eat your meals slowly, in a relaxed setting. Avoid bending over or lying down until 2 3 hours after eating. Limit high-fat foods such as fatty meats or fried foods. This information is not intended to replace advice given to you by your health care provider. Make sure you discuss any questions you have with your health care provider. Document Revised: 11/11/2020 Document Reviewed: 11/11/2020 [employer] Patient Education 2022 [employer]. Follow Up Care 02/25/2023 14:06:51 With:Anjali Ruby CNP Address: When:1 month [facility] 12-01-2023 Note [id number] NoteEndoscopy Care After Procedure Please read the instructions outlined below and refer to this sheet in the next few weeks. These discharge instructions provide you with general information on caring [facility] Your doctor may also give you [...] Document Re-Released: 10/25/2006 ExitCare? Patient Information ?2009 [employer]. Gastroenterology Upper Endoscopy, Adult, Care After After [...] activities are safe for you. ? Take ucuk-ltb-krortsd and prescription medicines only as told by [...] provider. Document Revised: 08/12/2022 Document Reviewed: 08/12/2022 [employer] Patient Education ? 2022 [employer].[facility] Chief Complaint: Patient here for 6 mo follow up CAD, hyperlipidemia, and hypertension. Due for routine device interrogation in May 2023. He is scheduled for EGD tomorrow at [facility]. Doesn't think he's had recent labs or testing. Denies chest pain, SOB, palpitations, and lightheadedness. Still does phase 3 cardiac rehab at [facility] 3 times a week. HPI: Jeremie Bennett [...] Global left ventricular systolic function is normal. L (more content not included)...[facility]11-20-2023 Miscellaneous Notes* Telephone Encounter - Lolly Dumont - 04/05/2023 9:44 AM EST Received records from [facility]. Reports for imaging listed below scanned. Images pushed through 09/27/2019 US Right Upper Quad 03/31/2020 CT ABD/PEL US Right Upper Quad Replaced By [facility] MRI Abdomen 02/22/2023 US Soft Tissue Head & Neck Received many misc. labs & ER reports Operative Note & pathology from Laparoscopic Cholecystectomy Patient seen 04/01, please review, thank you! documented in [facility]-16-2023 NoteHNO ID: [id number] Author: Vaishali Pringle MD Service: ? Author [...] way of the shared medical record or [place] postal services. Jeremie Bennett is a 82 [...] Pringle MD Medical De (more content not included)...[facility]11-16-2023 Nurse Note* Debby Holland MA - 04/01/2023 1:13 PM EST What is the reason for your visit today? Consult for [facility] Who is your referring physician? Anjali Ruby CNP Are you having poor oral intake? NO Have you had unintentional weight loss of 15 lbs/7 Kg in the last 3-6 months? NO Bowels: off and on Wound: Temperature: No Drains: No documented in this encounterMain [facility] Center11-16-2023 History of Present illness Narrative* Vaishali Pringle MD - 04/01/2023 1:00 PM EST PANCREATIC CYST INITIAL CONSULT PATIENT NAME: Jeremie [...] way of the shared medical record or [employer] postal services. Jeremie Bennett is a 82 [...] light colored stool. Had colonoscopy prior to 2019which was normal. 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 Patient was worked upfor right upper quadrant abdominal pain. He does have a previous history of an uncomplicated cholecystectomy. He underwent imaging followed by an MRI pancreas that noted the pancreatic cyst and he subsequently referred to me. He does not have any history related to his pancreas whatsoever. No history of any malignancies except prostate cancer. He does not have any history of pancreatitis. He doesnot smoke and he does not consume significant [...] Level: 4 - Moderate documented in this encounterMain [facility] Center11-13-2023 NoteEhMD Melba Galloway MA The patient can hold Plavix for 5 days prior to the procedure and resume once acceptable. He must be on aspirin 81 mg daily while off Plavix. Thank you Done and faxed back to Dr. Powers Office.[facility] 03-10-2023 Hospital Discharge instructions Patient Education 03/10/2023 09:19:04 Abdominal Pain, [...] Follow these instructions at home: Medicines Take nade-vyo-yfiqklj and prescription medicines only as told by [...] Watch your condition for any changes. Take yqyr-ugw-lerpohf and prescription medicines only as told by [...] provider. Document Revised: 06/21/2020 Document Reviewed: 09/11/2019 [employer] Patient Education 2022 [employer]. Follow Up Care 03/09/2023 09:58:32 With:Anjali Ruby CNP Address: When:1 to 2 weeks Comments:Following EGD. [facility] 10-12-2023 Hospital Discharge instructions Patient Education 02/25/2023 14:01:36 Dysphagia Dysphagia [...] inflammation that blocks the normal passage of foodand liquids. Causes of these problems include: ?Acid [...] a feeling like something is stuck in yourthroat or a sense of trouble with swallowing, [...] swallowing therapy may be used to help youstrengthen your swallowing muscles. You may have to do specific exercises to strengthen the musclesor stretch them. If the dysphagia is caused by a blockage or mass, procedures to remove the blockage may be done. You may need surgery and a feeding tube. You may need to make diet changes. Ask your health care provider for specific instructions. Follow these instructions at home: Medicines Take pzbf-efe-snxmngn and prescription medicines only as told by your health care provider. If you were prescribed an antibiotic medicine, take it as told by your health care provider. Do notstop taking the antibiotic even if you start to feel better. Eating and drinking Make any diet changes as told by your health care provider. Work with a diet and dairy nutritionist (dietitian) to create an eating plan [...] you need help quitting, ask your health careprovider. Keep all follow-up visits. This is important. [...] provider. Document Revised: 12/21/2020 Document Reviewed: 12/21/2020 [employer] Patient Education 2022 [employer]. Follow Up Care 02/22/2023 16:17:47 With:Anjali Ruby CNP Address: When:3 months [facility] 09-15-2023 Evaluation note* Encounter Date Diagnosis Assessment Notes Treatment Notes Treatment Clinical Notes Jan, Obstructive sleep apnea (ICD-10 - [...] months. A prescription was sent to the [facility] for new supplies throughout the year. He [...] to monitor. Jan, Other Call if any que stions or problems. Patient is advised to work on healthy diet choices and appropriate servings, weight control, regular exercise as directed, and reduce fat intake. Use machine regularly, and keep up with mask changes as needed. Call if problems with mask toleration, increased sleepiness, or poor response to treatment. . [employer] Other 08-29-2023 Hospital Discharge instructions Patient Education [...] including vitamins, herbs, eye drops, creams, and kysg-kat-ylzvjcr medicines. Any problems you or family members [...] provider tells you to take them. Taking nxph-zuw-dlwfpdz medicines, vitamins, herbs, and supplements. General instructions [...] provider. Document Revised: 04/27/2022 Document Reviewed: 12/24/2021 [employer] Patient Education 2022 [employer]. Follow Up Care 12/28/2022 08:53:11 With:Anjali Ruby CNP Address: When:1 to 2 weeks Comments:Following EGD/Colonoscopy. [facility] 08-29-2023 NoteRadiology Colonoscopy, Adult A [...] including vitamins, herbs, eye drops, creams, and lblc-ace-wjaqzuf medicines. ? Any problems you or family [...] tells you to take them. ? Taking oddp-qby-dytvfgx medicines, vitamins, herbs, and supplements. General instructions [...] checked for cancer cells. (more content not included)...[facility]08-01-2023 Note Radiology Colonoscopy, Adult A colonoscopy is [...] including vitamins, herbs, eye drops, creams, and jxom-boa-zmibbkn medicines. ? Any problems you or family [...] tells you to take them. ? Taking krcv-gpk-qacvowj medicines, vitamins, herbs, and supplements. General instructions [...] checked for cancer cells. 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 [DISCONTINUED] ytycczrtrd-vgybtnsgpdujx-grxz (Fioricet) 50-300-40 mg capsule every 4 (four) [...] Bowel sounds are n (more content not included)...[facility]06-27-2023 NoteHere today for evaluation post Covid 19 illness, appears to be recovered well, no concerning cardiac symptoms currently. [id number] Evaluation note* Encounter Date Diagnosis Assessment Notes [...] sleepiness, or poor response to treatment. . [employer] Other 05-09-2023 NoteInfectious Disease COVID-19 COVID-19, or [...] managed at home with rest, fluids, and xhhr-xkl-hsogqrk medicines. ? Serious symptoms may be treated [...] condition. ? You should (more content not included)...[facility]05-09-2023 Hospital Discharge instructions Patient Education 09/22/2022 18:15:09 [...] managed at home with rest, fluids, and yaog-xir-awknkjw medicines. Serious symptoms may be treated in [...] water are not available, use alcohol-based hand forge tender. Make sure that all people in your [...] managed at home with rest, fluids, and mdwt-oqv-xqjsmfj medicines. This information is not intended to replace advice given to you by your health care provider. Make sure you discuss any questions you have with your health care provider. Document Revised: 04/23/2022 Document Reviewed: 04/23/2022 [employer] Patient Education 2022 [employer]. Follow Up Care 09/22/2022 16:24:11 With:Sabino Cooper [facility] [place] [address] Business (2) When:09/25/2022 18:12:09 [facility]05-09-2023 Evaluation note* Encounter Date Diagnosis Assessment [...] no improvement in 2 to 3 days. [employer] Other 04-11-2023 NoteCONSULTATION CONSULTATION DATE: 08/25/2022 TO: [...] our patients to inform us about any lprn-wez-xaudsph medications or herbal remedies/nutritional supplements/alternative remedies. 2. 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 Moderate enthesopathic spurring of the calcaneus. Degenerative changes with bone fragments along the inferior medial malleolus, stable. SOFT TISSUES:Negative. No visible soft tissue swelling. EFFUSION:None visible. OTHER: Negative. IMPRESSION: Stable degenerative changes Electronically authenticated by: ERWIN FALCON Date: 2022-07-22 10:37[id number] NotePROCEDURE: XR FOOT RT MIN 3 VIEWS [...] authenticated by: CLARISSA GARCIA Date: 2022-06-16 15:25[facility] [id number] Note [id number]:127[facility] 05-26-2022 Hospital Discharge instructions Patient Education 05/26/2022 [...] Address: [facility] [address], [place] [address]- Business (1) When: Unknown Comments:Office will call to schedule follow up [facility]01-10-2023 NoteCustom Cystoscopy ? Voiding after the [...] if you have a fever over 100 degrees.[facility] 12-25-2021 NoteCONSULTATION PROCEDURE DATE: 12/25/2021 PRE AND [...] will be followed up in the clinic.[facility] 12-25-2021 NoteCONSULTATION CONSULTATION DATE: 12/25/2021 This is [...] recently seen at an urgent care in [place] for left thumb pain and joint swelling. [...] in three months' time unless otherwise indicated.[facility] [id number] Evaluation note* Encounter Date Diagnosis Assessment Notes [...] will help you get into a specialist. [employer] Other chief complaint+Reason for visit Narrative* Chief Complaint N54.2 Self Referral [facility] Work Phone: Chixl complaint+Reason for visit Narrative* Chief Complaint N54.2 Self Referral [id number] m54.12 m54.2 [facility] Work Phone: chief complaint+Reason for visit Narrative* Chief Complaint N54.2 Self Referral [id number] m54.12 m54.2 isidro, 31-90 [facility] Work Phone: Evaluation + Plan note No data available for this section [facility] Future Appointments Appointment Date:11/23/2022 09:00:00 AM Scheduled Provider:Sabino Cooper MD Location:[facility] App[facility]ment Type: Open [facility] Future Appointments Appointment Date:12/15/2022 12:00:00 PM Scheduled Provider:Anjali Ruby CNP Location:[facility] Appointment Type:[facility] New Patient Appointment Date:05/31/2023 09:00:00 AM Scheduled Provider:Sabino Cooper MD Location:[facility] Appointment Type: Open Appointment Date:11/08/2023 01:00:00 PM Scheduled Provider: Location:[facility] Appointment Type: Medicare Wellness Subsequent Future Scheduled Tests Laboratory* HgbA1c 11/23/22 * CBC w/ Auto Diff 11/23/22 * Comprehensive Metabolic Panel 11/23/22 * Lipid Panel 11/23/22 [facility] Future Appointments Appointment Date:05/31/2023 09:00:00 AM Scheduled Provider:[facility]ab[facility] Type: Open Appointment Date:11/08/2023 01:00:00 PM Scheduled Provider: Location:[facility] Appointment Type: Medicare Wellness Subsequent Future Scheduled Tests Laboratory* HgbA1c 11/23/22 * CBC w/ Auto Diff 11/23/22 * Comprehensive Metabolic Panel 11/23/22 * Lipid Panel 11/23/22 [facility] Future Appointments Appointment Date:05/31/2023 09:00:00 AM Scheduled Provider:Sabino Cooper MD [facility] Type: Open Appointment Date:11/08/2023 01:00:00 PM Scheduled Provider: Location:[facility] Appointment Type: Medicare Wellness Subsequent Future Scheduled Tests Laboratory* HgbA1c 11/23/22 * CBC w/ Auto Diff 11/23/22 * Comprehensive Metabolic Panel 11/23/22 * Lipid Panel 11/23/22 Radiology* CT Abdomen w/ Contrast 01/12/23 [facility] Evaluation + Plan note Future Appointments Appointment Date:05/03/2023 01:40:00 PM Scheduled Provider:Anjali Ruby CNP Location:[facility] Appointment Type:[facility] Follow Up Appointment Date:05/31/2023 09:00:00 AM Scheduled Provider:Sabino Cooper MD Location:[facility] Appointment Type: Open Appointment Date:11/08/2023 01:00:00 PM Scheduled Provider: Location:[facility] Appointment Type: Medicare Wellness Subsequent Future Scheduled Tests Laboratory* HgbA1c 11/23/22 * CBC w/ Auto Diff 11/23/22 * Comprehensive Metabolic Panel 11/23/22 * Lipid Panel 11/23/22 [facility] Evaluation + Plan note Future Appointments Appointment Date:05/03/2023 01:40:00 PM Scheduled Provider:Anjail Ruby CNP Location:[facility] Appointment Type:[facility] Follow Up Appointment Date:05/31/2023 10:00:00 AM Scheduled Provider:Sabino Cooper MD Location:[facility] Appointment Type: Open Appointment Date:11/08/2023 01:00:00 PM Scheduled Provider: Location:[facility] Appointment Type: Medicare Wellness Subsequent Future Scheduled Tests Laboratory* HgbA1c 11/23/22 * CBC w/ Auto Diff 11/23/22 * Comprehensive Metabolic Panel 11/23/22 * Lipid Panel 11/23/22 [facility] Evaluation + Plan note Future Appointments Appointment Date:05/03/2023 01:40:00 PM Scheduled Provider:Anjali Ruby CNP Location:[facility] Appointment Type:[facility] Follow Up Appointment Date:05/31/2023 10:00:00 AM Scheduled Provider:Sabino Cooper MD Location:[facility] Appointment Type: Open Appointment Date:11/08/2023 01:00:00 PM Scheduled Provider: Location:[facility] Appointment Type:FM Medicare Wellness Subsequent Diagnostic Tests Pending * O & P Exam, Routine 03/10/23 * Giardia lamblia, Direct Detection EIA 03/10/23 Future Scheduled Tests Laboratory* HgbA1c 11/23/22 * CBC w/ Auto Diff 11/23/22 * Comprehensive Metabolic Panel 11/23/22 * Lipid Panel 11/23/22 [facility] Future Appointments Appointment Date:05/31/2023 10:00:00 AM Scheduled Provider:Sabino Cooper MD Location:[facility] Appointment Type: Open Appointment Date:06/25/2023 01:20:00 PM Scheduled Provider:Anjali Ruby CNP Location:[facility] Appointment Type:[facility] Follow Up Appointment Date:11/08/2023 01:00:00 PM Scheduled Provider: Location:[facility] Appointment Type:FM Medicare Wellness Subsequent Future Scheduled Tests Laboratory* HgbA1c 11/23/22 * CBC w/ Auto Diff 11/23/22 * Comprehensive Metabolic Panel 11/23/22 * Lipid Panel 11/23/22 [facility] Evaluation noteNo Assessments Information Available [facility] noteNo assessment information available [facility] Work Phone: Evaluation note* Diagnosis 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 [facility] Diagnosis 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 documented in this encounter [facility] general Narrative - Reported* Type Description Date Medical History DM (diabetes mellitus) Medical History HTN (hypertension) Medical History Hypercholesteremia Medical History Vitamin D deficiency, unspecifie d Medical History CAD (coronary artery disease) Surgical History Neck Surgery Surgical History cholecystectomy Surgical History cardiac stent Surgical History prostatectomy Surgical History hernia Hospitalization History see above [employer] Other History general Narrative - Reported* Type [...] Surgical History hernia Hospitalization History see above [employer] Other Hospital Discharge instructions No data available for this section [facility] No data available for this section [facility] HospitalReason for referral (narrative) Referred by: Anjali Ruby CNP [facility] Summary Purpose Family History No Family History Records FoundNo Family History Records FoundNo Family History Records Found No data available for this section No data available for this section No data available for this section No Family History Records FoundNo Family History Records Found No data available for this section No Family History Records FoundNo Family History Records Found Advance Directives Advance Directive Response Recorded Date/ Time Advance Directives No August 13 021 10:26am Advance Directive Response Recorded Date/ Time Advance Directives No August 19 10:47am Advance Directive Response Recorded Date/ Time Advance Directives No August 19 9:47am Chief Complaint and Reason for Visit Chief Complaint mri check Chief Complaint mri check right ankle injury Chief Complaint N54.2 Chief Complaint isidro, 31-90 [facility] Obstructive sleep apnea Chief Complaint Obstructive sleep ap nai mri clearance Chief Complaint Obstructive sleep ap nai mri clearance Sleep apnea 31-90 day follow up Chief Complaint Obstructive sleep ap nai mri clearance Sleep apnea 31-90 day follow up k86.2 Chief Complaint isidro-3months Assessments No Assessments Information Available Additional Source Comments (unrecognized sect ion and content) No Status Records FoundNo Status Records FoundNo Status Records FoundNo Status Records FoundNo Status Records FoundNo Status Records FoundNo Status Records Found INFORMATION SOURCE (unrecogn ized section and content) DATE CREATED AUTHOR 02/08/2020 [facility] DATE CREATED AUTHOR AUTHOR'S ORGANIZ ATION 09/30/2022 [facility] DATE CREATED AUTHOR AUTHOR'S ORGANIZ ATION 02/04/[address] [facility] DATE CREATED AUTHOR AUTHOR'S ORGANIZ ATION 05/01/2023 [facility] DATE CREATED AUTHOR AUTHOR'S ORGANIZ ATION [facility] DATE CREATED AUTHOR AUTHOR'S ORGANIZ ATION 05/26/2023 [facility] DATE CREATED AUTHOR AUTHOR'S ORGANIZ ATION 06/01/2023 [facility] REASON FOR VISIT (unrecogniz ed section and content) FOLLOW UP Reason Comments Consult [facility] Reason Comments Received Outside Medical Records Patient [...] Status: Inactive Member Role Status Dates Sabino Coopre MD Primary Care Provider Active Gisele Brunson NP Attending Provider Active Team Status: Inactive Member Role Status Dates Sabino Cooper MD Primary Care Provider Active Anjali Ruby NP-C Attending Provider Active Dormitory Keeper Relationship Specialty Start Date End Date Anjali Ruby CNP [address] [place] [address] Referring Family Medicine 03/03/23 Dormitory Keeper Relationship Specialty Start Date End Date Anjali RubyGREG [address] [place] [address] Referring Family Medicine 03/03/23 Goals (unrecognized section and content) Goals may be documented in a n alternate section Source Comments (unrecognize d section and content) In the event this informatio n is protected by the Federal Confidentiality of Alcohol and Drug Abuse Patient Records regulations: The Federal rules restrict any use of the information to criminally investigate or prosecute any alcohol or drug abuse patient.[facility] the event this information is protected by the Federal Confidentiality of Alcohol and Drug Abuse Patient Records regulations: The Federal rules restrict any use of the information to criminally investigate or prosecute any alcohol or drug abuse patient.[facility] FOR RECORDS PERTAINING TO PATIENTS [...] BE BASED ON THE PRIMARY CLINICAL RECORDS. [facility], [facility]. provides no warranty or guarantee of the accuracy or completeness of information in this document.
[2023-06-08 08:47] VITALS: BP 119/73; PULSE 73; RESP 16; TEMP 36.7; O2SAT 95
[2023-06-08 08:52] LABS: Glucometer 147 mg/dL (74-106)
[2023-06-08 09:46] VITALS: BP 114/70; PULSE 92; RESP 18; O2SAT 93
[2023-06-08 09:47] VITALS: BP 112/66; PULSE 75; RESP 19; O2SAT 94
[2023-06-08] MEDS: BUPIVACAINE HCL 0.25% PF 25 MG/10 ML VIAL 4 ML INJ (09:47)
--- NOTE | 2023-06-08 09:50 | W.PM.PROCNOT ---
Date of procedure: 06/08/23 Pre-op diagnosis: lumbar spondylosis Post-op diagnosis: same as pre-op Procedure: Right Lumbar 2/3, 4/5 medial branch block Under fluoroscopic guidance Solution injected: 2millilitersMarcaine 0.25% Anesthesia :none Immediate complications none Time out process compliant After informed consent obtained from the patient placed in the Prone proposition . area was prepped and draped in a sterile fashion using Cloraprep .25 gauge spinal needle inserted over each of the above mentioned target areas . [place] were directed towards the target under fluoroscopic guidance . after encountering each of the targets , no indication of intravascular intraneuronal or intrathecal needle tip placement. Then 0 .5 to 1 Milliliter was injected at each level. Le[place] removed postoperatively. patient transferred to recovery in stable condition to be discharged home after meeting criteria Anesthesia: Local Surgeon: Aster Saleem Condition: stable
== END 2023-06-08 09:55 | disposition home or self-care (01) ==
LOC: SURGOUT 08:31
PROVIDERS: PCP Family Medicine; Visit Provider Anesthesiology Pain Medicine
DX: M47.816 Spondylosis without myelopathy or radiculopathy, lumbar region (principal); Z79.84 Long term (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 of oral hypoglycemic drugs
CPT/HCPCS: 36415; 64493; 64494; 82948; J0665

== ENCOUNTER 2023-06-17 12:41 | Outpatient (OUT) | payer MEDICARE, SELFPAY ==
--- OUTSIDE RECORDS SUMMARY | 2023-06-17 13:02 | XMS_ITS | CCD ---
Author Name Unknown Address [address] [place] [address] Organization [facility] Care Team Providers Care Spot Man Name Role Phone ELTAHAWY, EHAB A Admitting Unavailable ELTAHAWY, EHAB A Attending Unavailable SABINO COOPER Referring Unavailable SABINO COOPER Primary Care Unavailable Param Cosme Attending Provider [phone] Sabino Cooper Primary Care Provider Param Cosme Attending Provider Sabino Cooper Primary Care Provider Leti Garcia Unavailable MG LONDON Primary Care Physician [phone] KAT Westfall Attending Provider MD Mg London Primary Care Provider KAT Westfall Attending Provider [phone] MD Mg London Primary Care Provider MD Erwin Salazar Attending Provider [phone] Erwin Salaazr Unavailable MARCE Hardy Attending Provider KAT Westfall Other Provider Sabino Cooper Primary Care Physician Griselda Pennington Unavailable ALANNA HARDY Admitting Unavailable ALANNA HARDY Attending Unavailable LITA, DR MG Omalley Primary Care Unavailable ISHPEMING, DR ERWIN Bell Consulting Unavailable ALANNA HARDY [...] DR MG Omalley Primary Care Unavailable ABDON, SONA Attending Unavailable ABDON, SONA Admitting Unavailable ZIEBER, DR CLARISSA Cline Consulting Unavailable NADERER, DR MG Omalley Primary Care Unavailable ABDON, SONA Consulting Unavailable NADERESon, DR MG mOalley Primary Care Unavailable MARKER ., DR ODELL Consulting Unavailable MARKER ., DR ODELL Admitting Unavailable MARKER ., DR ODELL Attending Unavailable HIGHTOWER, GIN Consulting Unavailable ABDON, SONA Attending Unavailable ABDON, SONA Admitting Unavailable NADERESon, DR MG Omalley Primary [...] Care Unavailable ANTONY, ALANNA Araiza Admitting Unavailable HIGHLANDER, ALANNA Araiza Attending Unavailable NADERER, DR MG Omalley Primary Care Unavailable HIGHLANDER, ALANNA Araiza Attending Unavailable HIGHLALANNA JARAMILLO Admitting Unavailable NADERER, DR MG Omalley Primary Care Unavailable MISC, DR BECKER Attending Unavailable MAGYWSHAIKH Jane SULLIVAN Consulting Unavailable MISC, DR BECKER Admitting Unavailable NADERER, DR MG Omalley Primary Care Unavailable ISHPEMING, DR ERWIN Bell Consulting Unavailable ELTAHAWY, DR CAO Admitting Unavailable ELTAHAWY, DR CAO Attending Unavailable NADERER, DR MG Omalley Primary Care Unavailable ELTAHAWY, DR CAO Consulting Unavailable REINECK, DR EDY Da Silva Admitting Unavailabl e NADERER, DR MG Omalley Primary Care Unavailable REINECK, DR EDY Da Silva Consulting Unavailabl e REINECK, DR EDY Da Silva Attending Unavailabl e NEFCY, ALANNA Consulting Unavailable BRITTON, IFEOMA Admitting Unavailable NADERER, DR MG Omalley Primary Care Unavailable BRITTONIFEOMA Attending Unavailable HIGHLANDER, ALANNA Araiza Attending Unavailable HIGHLANDER, ALANNA Araiza Admitting Unavailable NADERER, DR MG Omalley Primary Care Unavailable DAISHA Brunson Gisele Attending Provider MD Sabino Cooper Primary Care Provider Brunson, Gisele Unavailable MD Erwin Salazar Attending Provider [phone] MD Sabino Cooper Primary Care Provider MD Inez Henderson Attending Provider Esme Brunson NP Gisele Attending Provider FABIO Ruby Attending Provider [phone] Flori GARZA, Anjali Unavailable VAISHALI PRINGLE Attending Unavailable ELTAHAWY, EHAB Attending Unavailable STACEY PATEL Referring Unavailable STACEY PATEL Referring Unavailable STACEY PATEL Referring Unavailable JOSE R ALEXANDER Attending Unavailable MD Sabino Cooper Primary Care Provider [phone] Boy INCINERATOR PLANT SUPERVISOR Gisele Attending Provider Inez Henderson Admitting Unavailable Inez Henderson Attending Unavailable Sabino Cooper Primary Care Unavailable Brunson, Gisele Admitting Unavailable Brunson, Gisele Attending Unavailable Sabino Cooper Primary Care Unavailable Sabino Cooper Primary Care Unavailable Flori, Anjali Ifeoma Admitting Unavailable Flori, Anjali Ifeoma Attending Unavailable Brunson, Gisele Admitting Unavailable Brunson, Gisele Attending Unavailable Hermes, Sabino E Primary Care Unavailable Lowe, Missy Admitting Unavailable Lowe, Missy Attending Unavailable Lita, Mg Primary Care Unavailable Erwin Salazar Admitting Unavailable Erwin Salazar Attending Unavailable Naderer, Mg Primary Care Unavailable Lowe, Missy Consulting Unavailable Highlander, Peter D Admitting Unavailable Highlander, Alanna D Attending Unavailable Naderer, Mg Primary Care Unavailable Lowe, Missy Admitting Unavailable Lowe, Missy Attending Unavailable Naderer, Mg Primary Care Unavailable Brunson, Gisele Admitting Unavailable Brunson, Gisele Attending Unavailable Sabino Cooper Primary Care Unavailable Erwin Salazar Admitting Unavailable Erwin Salazar Attending Unavailable Sabino Cooper Primary Care Unavailable SarminiShaunWiley Talal Admitting Unavaila ble Sarmini, Wiley Talal Attending Unavaila ble Sarmini, Wiley Talal Referring Unavaila ble Flori, Anjali A Admitting Unavailable Flori, Anjali A Attending Unavailable Flori, Anjali A Referring Unavailable Flori, Anjali A Admitting Unavailable Flori, Anjali A Attending Unavailable Yajaira Roque Attending Unavailable Sabino Cooper Attending Unavailable Sabino Cooper Attending Unavailable Sabino Cooper Attending Unavailable Sabino Cooper Attending Unavailable Sabino Cooper Attending Unavailable Sabino Cooper Attending Unavailable Sabino Cooper Admitting Unavailable Sabino Cooper Attending Unavailable Gordy Snáchez Attending Unavailable Gordy Powers Admitting Unavailable Gordy Powers Attending Unavailable Gordy Powers Referring Unavailable Sabino Cooper EAidan Referring Unavailable Flori, Anjali A Attending Unavailable Flori, Anjali A Attending Unavailable Flori, Anjali A Attending Unavailable Flori, Anjali A Attending Unavailable Flori, Anjali A Attending Unavailable Flori, Anjali A Attending Unavailable Sabino Cooper Attending Unavailable Sabino Cooper Attending Unavailable Sabino Cooper Attending Unavailable Unavailable Unavailable Unavailable Allergies Allergy Classification Reported Allergen(s) Allergy Type Date of Onset Reaction(s) Facility (3 sources) Desonide Drug Allergy 0 [facility] Repository (1 source) Niacin Drug Allergy 0 [facility] Repository (6 sources) Adhesive agent Drug allergy rash [facility] Other (13 sources) Niacin; Translations: [niacin] Drug Allergy 9 hives, Itching (finding), Itching, Unknown [facility] [place] (10 sources) Adhesive bandage; Translations: [Adhesive Bandage] Allergy to substance Eruption of skin (disorder) [facility] [place] (5 sources) Niacin Drug Allergy hives [facility] Other (2 sources) Niaspan Starter Pack Drug allergy (disorder) 8 [facility] Repository (3 sources) Adhesive Tape-Silicones; Translations: [ADHESIVE TAPE-SILICONES] Drug Allergy 9 Rash [facility] (1 source) Niacin; Translations: [Niaspan ER] Drug Allergy [facility] Repository Medications Current Medications Medication Drug Class(es) Dates Sig (Normalized) Sig (Original) Albuterol (Eqv-ProAir HFA) 90 mcg/inh inhalation aerosol (7 sources) Start: 11-09-2022 Albuterol (Eqv-ProAir HFA) 90 mcg/inh inhalation aerosol See Instructions, 17 gm, Refill(s) 6, USE 2 INHALATIONS BY MOUTH EVERY 6 HOURS, [facility] ([facility]), 163, cm, 11/04/22 15:03:00 EDT, [...] Acid 7540 MG / POLYETHYLENE GLYCOL 3350 06737 MG / Potassium Chloride 1200 MG / Sodium Ascorbate 21745 MG / Sodium Chloride 3200 MG Powder for Oral Solution) / 1 (POLYETHYLENE GLYCOL 3350 635500 MG / Potassium Chloride 1000 MG / Sodium Chlori (5 sources) Osmotic Laxative, Vitamin C Start: 12-15-2022 Plenvu oral powder for reconstitution See Instructions, 1 EA, Refill(s) 0, Prior to colonoscopy., [id number], 163, cm, 12/15/22 12:03:00 EDT, Height/Length Dosing, [...] procedure, # 10 cap(s), Refills(s) 0, Pharmacy: [facility] #[id number], 167, cm, 04/27/22 8:46:00 EST, Height/Length Dosing, [...] day(s), # 90 packet(s), Refills(s) 0, Pharmacy: [facility] #[id number], 163, cm, 05/25/23 12:33:00 EST, Height/Length Dosing, [...] Active Fish Oils (7 sources) Start: 11-04-2022 [place]-3 Fish O il Oral, Daily, Refills(s) 0, Prophylaxis Start Date: 11/04/22 Status: Ordered Start: 11-04-2022 [place]-3 Fish O il Oral, Daily, Refills(s) 0 Start Date: 11/04/22 Status: Ordered fluticasone 0.05 mg/inh Nasal [place] (1 source) Start: 04-24-2020 fluticasone 0. 05 mg/inh Nasal [place] Daily, Refill(s) 0 Start Date: 04/24/20 Status: [...] TID, # 270 EA, Refills(s) 0, Pharmacy: [facility], 163, cm, 02/25/23 13:29:00 EDT, Height/Length [...] 0, Prophylaxis Start Date: 04/24/20 Status: Ordered [place] 3 (5 sources) [place] 3 Active omeprazole 40 mg delayed release oral capsule (16 sources) Proton Pump Inhibitor Start: 023 take 1 capsule by mouth once daily omeprazole 40 mg Cap-DR See Instructions, TAKE 1 CAPSULE BY MOUTH DAILY, # 90 cap(s), Refills(s) 3, Pharmacy: [facility] ([facility]), 163, cm, 12/15/22 12:03:00 EDT, Height/Length Dosing, 73.3, kg, 12/15/22 12:03:00 EDT, Weight Dosing Start Date: 01/06/23 Status: Ordered Start: 08-24-2022 take 1 capsule by [facility] once daily omeprazole 40 mg Cap-DR 40 mg, Oral, Daily, # 90 EA, Refills(s) 0, Pharmacy: [facility] ([facility] ), 167.6, cm, 08/24/22 8:10:00 [...] tab(s), Refills(s) 3, Pharmacy: [facility] ([facility]), 163, cm, 11/04/22 15:03:00 EDT, [...] (F LONASE) 50 mcg/actuation nasal spray 1 Soldier. 0 08/24/2022 Active Start: 08-24-2022 take 1 spray(s) nasa l route twice daily Flonase 0.05 mg/inh Soldier 1 spray(s), Nasal, BID, 16 gram, Refill(s) 0, each nostril, [facility] ([facility] ), 167.6, cm, 08/24/22 8:10:00 EDT, Height/Length Dosing, 83.4, kg, 08/24/22 8:10:00 EDT, Weight Dosing Start Date: 4/10/23 Status: Ordered Start: 08-23-2022 Start: 04-24-2020 take 50 ug by inhala tion twice daily fluticasone propionate 50 mcg, Inhalation, BID, Refills(s) 0 Start Date: 04/24/20 Status: Ordered Fluticasone Prop ionate 50 MCG/ACT Nasal for 30 Active Comment on above: 1 Soldier. 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 of antithrombotics/antipl atelets; Translations: [LAUNDRY MACHINE TENDER ANTITHROMBOT/ANTIPLATL ETS] Onset: 3 Episodic Other aftercare (1 source) 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 Name: JEREMIE BENNETT D.O.B./Sex: 1940 Male Med Rec #: [id number] Physician: Inez Henderson MD Financial #: [id number] Pt. Type: O Room/Bed: / Admit/Disch: 06/14/23 12:14:38 - 06/14/23 23:59:59 Institution: Case Times FT Entry 1 Patient Times In Room 06/14/23 14:14:00 Out Room 06/14/23 14:37:00 Procedure Times Start 06/14/23 14:19:00 Stop 06/14/23 14:35:00 Anesthesia Times Start 06/14/23 14:14:00 Stop 06/14/23 14:37:00 Time at [facility] 06/14/23 14:22:00 Last Modified By: Renetta ESCALANTE, Alize Salgado 06/14/23 14:37:39 General Comments: 06/15/23 Chart opened to review and send charges LRoth CSFA Case Attendance FT Entry 1 Entry 2 Entry 3 Case Attendee Ernesto DENSON, Gordy Jackson RN, Alize Cabrera FERRY ENGINEER, Negar Campbell Role Performed Anesthesiologist Town Planner - Primary Scrub - Primary Historical Interpreter Time In 06/14/23 14:14:00 06/14/23 14:14:00 06/14/23 14:14:00 Time Out 06/14/23 14:37:00 01/29/24 14:37:00 06/14/23 14:37:00 Procedure COLONOSCOPY(.) COLONOSCOPY(.) COLONOSCOPY(.) Comments Dr. Martinez supervising case Last Modified By: Alize Jackson RN, RN, Alize Salinas RN 06/14/23 14:37:40 F 06/14/23 14:37:40 F 06/14/23 14:37:40 Entry 4 Case Attendee Inez Henderson MD Role Performed Surgeon - Primary Time In 06/14/23 14:14:00 Time Out 06/14/23 14:37:00 Procedure COLONOSCOPY(.) Comments Last Modified By: Alize Jackson RN 06/14/23 14:37:40 Perioperative Protocols FT Pre-Care Text: Implements protective measures prior to operative or invasive procedure, confirms identity before the operative or invasive procedure, verifies operative procedure, surgical site, and laterality Entry 1 Procedure(s) COLONOSCOPY(.) Patient Identity Birthday, ID Band Verified (select at Check, Patient least 2): Participation Consents / H and P Anesthesia Consent, Operative Site N/A Verified HandP, Surgery/Procedure Marking Verified Consent Surgical Site No Laterality Verified n/a Verified Procedure Verified Yes Correct Patient Yes Position Verified Availability Equipment, Medication Prep Dry n/a Verified (If Applicable) PreOp Antibiotic No Time Out Gordy Garcia, Given Participants Alize Jackson RN, Rick FAYE, Beatriz Espino MD, Muhammad Talal Time Out Complete 06/14/23 14:16:00 Outcomes Met? Yes Last Modified By: Alize Jackson RN 06/14/23 14:16:42 Post-Care Text: The patient is free from signs and symptoms of injury caused by extraneous objects Allergy Information FT Pre-Care Text: Verifies allergies Entry 1 Allergies Reviewed? Yes Allergies Reviewed Self/Patient With Outcomes Met? Yes Last Modified By: Alize Jackson RN 06/14/23 14:16:47 Post-Care Text: The patient received appropriate medication(s) safely administered during the perioperative period Surgical Procedures FT Entry 1 Procedure Description Procedure COLONOSCOPY Modifiers . Surgeon Description Colonoscopy with random colon biopsy, ascending colon polypectomy removed using biopsy forceps. Primary Procedure Yes Primary Surgeon Inez Henderson MD Start 06/14/23 14:19:00 Stop 06/14/23 14:35:00 Anesthesia Type General Surgical Service Gastroenterology Wound Class 2 - Clean-Contaminated Last Modified By: Alize Jackson RN 06/14/23 14:35:34 General Case Data FT Pre-Care Text: Classifies surgical wound, implements aseptic technique, initiates traffic control Entry 1 Case Information OR ENDO 1 FT Case Level Level 2 Wound Class 2 - Clean-Contaminated Specialty Gastroenterology ASA Class 3 Preop Diagnosis Fecal urgency, hard Postop Same As Preop No stool Postop Diagnosis Severe diverticulosis, Outcomes Met? Yes ascending colon polyp, internal hemorrhoids Last Modified By: Alize Jackson RN 06/14/23 14:35:45 Post-Care Text: The patient is free from signs and symptoms of infection Skin Assessment (Pre Procedure) FT Pre-Care Text: Implements protective measures to prevent skin/ tissue injury due to thermal or mechanical sources Evaluates for signs and symptoms of physical injury to skin and tissue Entry 1 Skin Integrity Intact, [place], Warm, and Skin Abnormality No Dry Outcomes Met? Yes Last Modified By: Alize Jackson RN 06/14/23 14:17:23 Post-Care Text: The patient is free from signs and symptoms of injury caused by extraneous objects Patient Positioning FT Pre-Care Text: Identifies physical alterations that require additional precautions for procedure-specific positioning, verifies presence of prosthetics or corrective devices, positions the patient, evaluates the patient for signs and symptoms of injury as a result of positioning Entry 1 Procedure (more content not included)... Normal [facility] Consent for Treatmenton 05-18 Consent for Treatment [id number] IFF Normal [facility] Discharge Instructionson Discharge Instructions JEREMIE BENNETT :1940 Visit Date:06/14/2023 Inpatient Discharge Instructions Your Care Team Admitting Physician - Inez Henderson MD Referring Physician - Inez Henderson MD Reason for Your Visit [facility]AL U[facility]ENCY, HARD STOOL Your Diagnosis Chronic diarrhea Tests Performed Pathology Tissue Exam -- Results [...] 2% solution) fluticasone nasal (Flonase 0.05 mg/inh Soldier) fluticasone nasal (fluticasone Nasal 0.05 mg/inh [place]) furosemide (furosemide 20 mg Tab) glimepiride (glimepiride 2 mg Tab) irbesartan (irbesartan 300 mg Tab) isosorbide mononitrate latanoprost ophthalmic latanoprost ophthalmic (latanoprost Opth 0.005% Janee) loperamide (loperamide 2 mg Tab) metformin (metformin 500 mg ER Tab) multivitamin with minerals (Multivitamin, Therapeutic w/ Minerals) omeprazole (omeprazole 40 mg Cap-DR) psyllium (Metamucil) rosuvastatin (rosuvastatin 10 mg Tab) sotalol (sotalol 80 mg Tab) tizanidine (tiZANidine 4 mg Tab) zonisamide (zonisamide 25 mg Cap) Procedure History Esophagogastroduodenosc opy (04/15/2023), Esophagogastroduodenosc opy (05/20/2020), Angioplasty, Cardiac pacemaker procedure, Cataract, Cholecystectomy, Colonoscopy, Hernia repair, Prostate excision, Tonsillectomy, Vasectomy. Discharge Vitals Temperature (Temporal Artery) 36.6 ?C Heart Rate (Monitored) 60 Respiratory Rate 19 Blood Pressure 119/62 Height 163 cm Weight 79.8 kg BMI 30.04 What to do next Instructions From Your Doctor Event Name Event Result Pharmacy Information Other: [facility] Previously Scheduled Follow-Up Appointments Wednesday 1:20 PM EST With: Anjali Ruby CNP Where: [facility] Invalid Interpretation Code [address] [place] [address]- \.br\ Wednesday 1:00 PM EDT \.br\ With:\.br\ Where: [facility] Comment on above: Result Comment: Elec tronically Signed By: Colette Cooley RN\.br\Date and Time Signed: 06/14/23 14:49 EST Endoscopic Procedure Report - Otheron 06-14-2023 Endoscopic Procedure Report - Other Patient: JEREMIE BENNETT Age: 82 years Sex: Male : 1940 Associated Diagnoses: None Author: Inez Henderson MD Pre-Procedure Procedure Date 06/14/2023 14:36:00 . Procedure Type: Colonoscopy with removal of tumor(s), polyp(s), or other lesion(s) by cold biopsy, biopsy. Procedure provider Performed by Inez Henderson MD. Current history and physical Documented on chart. Colorectal neoplasm risk assessment Average risk. Informed Consent After discussing the rationale, risks and benefits, and alternatives to this procedure, the patient provided signed consent for the procedure. Pre-procedure diagnosis: Diarrhea, clinically significant. Medications Anticoagulant/antiplate let Plavix 7 days ago. ASA Classification: Class II. . Monitoring: See anesthesia record. . Procedure The procedure was performed in the hospital. See anesthesia record for sedation given during procedure. The patient was positioned starting in the left lateral decubitus position. Endoscope type used was a pediatric-size. The endoscope was lubricated then introduced through the anus. The scope was advanced to the terminal ileum. No difficulties encountered during the procedure. The bowel preparation quality was good and was adequate (see polyps greater than or equal to 6 millimeters). The patient tolerated the procedure well. Time to cecum: 3 min Time of withdrawal:13 min Findings 1. Small internal hemorrhoids seen on retroflexion 2. Severe sigmoid diverticulosis, few small diverticuli through transverse and ascending colon 3. 3 mm sessile polyp in the ascending colon, removed completely with cold snare and retrieved 4. Normal Terminal ileum Post-Procedure Complications: none. Estimated blood loss: Minimal. Specimens: sent to pathology. Devices/ implants: none left in place. Impression and Plan 1. Small internal hemorrhoids seen on retroflexion 2. Severe sigmoid diverticulosis, few small diverticuli through transverse and ascending colon 3. 3 mm sessile polyp in the ascending colon, removed completely with cold snare and retrieved 4. Normal Terminal ileum Recommendations: Repeat colonoscopy:: In 10 years, Repeating scope at that age will be up to the patient . Follow-up:: in clinic for 1-2 weeks when pathology is available. Diet:: Previous. Medication resumption:: Continue current medications, Avoid NSAIDs. Return to activities:: After 24 hours. Education and Follow-up: Counseled: Patient, Family. [facility] Comment on above: Result Comment: Elec tronically Signed By: Inez Henderson MD\.br\Date and Time Signed: 06/14/23 14:39 EST Main OR PACU I Recordon 05-18 Main OR PACU I Record PACU Phase I Document Type FT Summary Primary Physician: Inez Henderson MD Finalized Date/Time: 06/14/23 17:33:36 Pt. Name: JEREMIE BENNETT/Sex: 1940 Male Med Rec #: [id number] Physician: Inez Henderson MD Financial #: [id number] Pt. Type: O Room/Bed: / Admit/Disch: 06/14/23 12:14:38 - Institution: Case Times PACU I FT [...] to medications Entry 1 In PACU I 06/14/23 14:39:00 Discharge from PACU 06/14/23 15:04:00 I Outcomes Met? Yes Last Modified By: Colette Cooley RN 06/14/23 17:33:24 Post-Care Text: The patient demonstrates knowledge of [...] PACU I FT Entry 1 Start Time 06/14/23 14:39:00 Stop Time 06/14/23 15:04:00 Acuity Level Acuity Level I Last Modified By: Colette Cooley RN 06/14/23 17:33:35 Finalized By: Colette Cooley RN Document Signatures Signed By: Colette Cooley RN 06/14/23 17:33 Normal [facility] Main OR Preoperative Recordo n 06-14-2023 Main OR Preoperative Record Holding Area Document Type FT Summary Primary Physician: Inez Henderson MD Finalized Date/Time: 06/14/23 12:48:41 Pt. Name: JEREMIE BENNETT/Sex: 1940 Male Med Rec #: [id number] Physician: Inez Henderson MD Financial #: [id number] Pt. Type: O Room/Bed: / Admit/Disch: 06/14/23 12:14:38 - Institution: Case Times Holding FT Pre-Care Text: Verifies consent for planned procedure, identifies individual values and wishes concerning care, includes family members in perioperative teaching Secures patient's records' belongings, and valuables, maintains patient's dignity and privacy, and maintains patient confidentiality Entry 1 In Holding 06/14/23 12:41:00 Outcomes Met? Yes Last Modified By: Sabine Penny RN 06/14/23 12:47:08 Post-Care Text: The patient participates in decisions affecting his or her perioperative plan of care The patient's right to privacy is maintained Surgery Checklist FT Entry 1 Patient Birthday, ID Band Procedure History and Physical, Identification: Check, Patient Verification: Surgical Consent, With Participation Patient NPO after Midnight: No Date/Time: 06/14/23 07:00:00 Personal Items: Glasses, Pacemaker Personal Items clothes Comment: Limitations: no Complaints of Pain: No Pain Comment: no Operative Site n/a Marking: Marked By: n/a Availability Equipment Verified: Does Patient Smoke No Patient states Yes Comment - Adult Felicia- postop adult Supervision supervision available Case Cancelled in No Holding Area see comments below for reason Last Modified By: Sabine Penny RN 06/14/23 12:48:37 General Comments: 100% prep in patient tolerated well, last bowel movement was clear yellow./MYA,RN Finalized By: Sabine Penny RN Document Signatures Signed By: Sabine Penny RN 06/14/23 12:48 Normal [facility] Monitor Recordon 06-14-2023 Monitor Record [id number] TIFF Normal [facility] Patient Education - Texton 0 06-14-2023 Patient Education - Text Colonoscopy Care After Surgery Please read the instructions outlined below and [...] after discharge, please call your doctor. ACTIVITY You may resume your regular activity, but move at a slower pace for the next 24 hours. Take frequent rest periods for the next 24 hours. Walking will help get rid of the air and reduce the bloated feeling in your abdomen (belly). No driving for 24 hours (because of the anesthesia (medicine) used during the test). You may shower. Do not sign any important legal documents or operate any machinery for 24 hours (because of the anesthesia used during the test). NUTRITION Drink plenty of fluids. You may resume your normal diet as instructed by your doctor. Begin with a light meal and progress to your normal diet. Heavy or fried foods are harder to digest and may make you feel nauseated (sick to your stomach). Avoid alcoholic beverages for 24 hours or as instructed. MEDICATIONS You may resume your normal medications unless your doctor tells you otherwise. WHAT YOU CAN EXPECT TODAY Some feelings of bloating in the abdomen. Passage of more gas than usual. Spotting of blood in your stool or on the toilet paper. FOLLOW-UP Your doctor will discuss the results of your test with you. SEEK IMMEDIATE MEDICAL ATTENTION IF: There is more than a spotting of blood in your stool. There is abdominal distention (your abdomen is swollen). There is vomiting. You have a temperature over 101.5 F. There is abdominal pain or discomfort that is severe or gets worse throughout the day. Nonsteroidal Anti-Inflammatory Medications (NSAIDS) Non-steroidal anti-inflammatory drugs (NSAIDs) are a medication widely used to treat a wide range of conditions. Common acute (short-term) conditions that can be treated with NSAIDs include: ? headaches ? painful periods ? toothache ? soft tissue injuries such as sprains and strains ? reduce inflammation (redness and swelling) ? infections, such as the common cold or the flu (NSAIDs do not treat the underlying infections, but can help to relieve symptoms; especially fever) Common chronic (long-term) conditions that can be treated with NSAIDs include: ? most types of arthritis, including rheumatoid arthritis and osteoarthritis ? back pain ? neck pain Some NSAIDs are available [id number], without the need for a prescription. However, because a medication is available over the counter it does not mean it is safe or suitable for everyone. Again, it is important to read the patient information leaflet that comes with your medication. NSAID drugs include: Brand: Generic: Bufferin; Kaleb Aspirin; ASA Celebrex Celecoxib Zipsor; Cambia Diclofenac Motrin; Advil Ibuprofen Indosin Indometacin Actron; Orudis Ketoprofen Toradol Ketorolac Mobic Meloxicam Ponstel Mefenamic Acid Aleve; Naprosyn Naproxen Side effects: Most people take NSAIDs without having any side effects. Short term use is unlikely to cause significant problems, especially in younger patients. If side effects do occur they usually affect the stomach and can include: ? Indigestion ? Nausea ? Stomach pain ? Stomach ulcer ? Bleeding from the stomach and intestines Other side effects: ? Ringing in the ears ? itching ? Poor control of asthma ? Headache ? Allergic reactions NSAIDs are also not usually recommended for people who: ? are or ? have a history of kidney disease ? have a history of liver disease ? have active stomach ulcers (a sore in the lining of the stomach), or are at risk of developing stomach ulcers How to take NSAIDS: NSAIDS should be taken in the pill form or given by injection. If you are taking the pill form, it is best to take with food to avoid an upset stomach. IF a dose is missed: Some of these medications are taken ?as needed.? Do not take more of your NSAID than your doctor has prescribed. Follow the sryf-yqu-ghnvlbs labels and do not exceed the recommended dosage. If you take an NSAID daily, take the missed dose of your medication as soon as you remember it. If it is too close to the time for your next dose, skip the missed dose and go back to taking this medication at your normal time. Do not take two doses of this medication at the same time or take any extra doses of this medication. If any questions regarding your medications, contact your physician or pharmacist. Diverticulosis Many people have small pouches in their colon called diverticulum. The diverticulum bulge outward through weak (more content not included)... Normal [facility] Progress Note-Physicianon Progress Note-Physician Patient: JEREMIE BENNETT Age: 82 years Sex: Male : 1940 Associated Diagnoses: None Author: Macario Martinez Jr., DO Postoperative Information Postoperative disposition: Postoperative disposition: Home. Optimetrix number: Optimetrix number [id number]. Anesthetic utilized: General. Physical Examination Vital Signs 06/14/2023 14:45 EST Heart Rate Monitored 60 bpm Respiratory Rate Monitored 19 br/min Systolic Blood Pressure 119 mmHg Diastolic Blood Pressure 62 mmHg SpO2 100 % 06/14/2023 14:43 EST SpO2 100 % 06/14/2023 14:40 EST Heart Rate Monitored 60 bpm Respiratory Rate Monitored 20 br/min Systolic Blood Pressure 105 mmHg Diastolic Blood Pressure 57 mmHg LOW SpO2 98 % 06/14/2023 14:39 EST Temperature Temporal Artery 36.6 DegC Heart Rate Monitored 60 bpm Respiratory Rate Monitored 21 br/min Systolic Blood Pressure 105 mmHg Diastolic Blood Pressure 57 mmHg LOW Blood Pressure Location Left arm SpO2 98 % Pain Assessment: Controlled. General: Awake, Alert, Appropriate. Respiratory: Adequate air exchange, Non-labored. Cardiovascular: Stable, Normal peripheral perfusion. Neurological: Neurologic exam at baseline. No changes.. Assessment Anesthetic outcome No anesthetic complications noted. No nausea/vomiting. Review / Management Condition: Stable. Plan Transfer/Discharge: Transfer/Discharge Discharge when meets criteria ( From PACU to Ambulatory Surgery Unit, and To home ). Normal [facility] Comment on above: Result Comment: Elec tronically Signed By: Macario Martinez Jr., DO\.br\Date and Time Signed: 06/14/23 15:28 EST Progress Note-Physician Patient: JEREMIE BENNETT Age: 82 years Sex: Male : 1940 Associated Diagnoses: None Author: Macario Martinez Jr., DO Preoperative Information Anesthesia history: Patient history: No prior anesthetic problems. Informed consent: Signed by patient. Re-evaluation prior to induction: Initial evaluation reviewed: No significant change. Review of Systems Respiratory: Negative except as documented in history of present illness. Cardiovascular: Negative except as documented in history of present illness. Health Status Allergies: Allergic Reactions (Selected) Severity Not Documented Adhesive Bandage- Rash. Niaspan ER- Itching., Allergies (2) Active Reaction Adhesive Bandage Rash Niaspan ER Itching Current medications: (Selected) Inpatient Medications Ordered Lactated Ringers IV Janee 1000 mL 1,000 mL: 1,000 mL, IV, 100 mL/hr, Routine, Start date 06/14/23 12:58:00 EST, 10 hour(s), Total volume (mL): 1,000, 79.8 kg, 1.9, m2 Sodium Chloride 0.9% IV Janee 1000 mL 1,000 mL: 1,000 mL, IV, 20 mL/hr, Routine, Start date 06/14/23 6:40:00 EST, 50 hour(s), Total volume (mL): 1,000, 80.2 kg, 1.91, m2 Prescriptions Prescribed Albuterol (Eqv-ProAir HFA) 90 mcg/inh inhalation aerosol: See Instructions, 17 gm, Refill(s) 6, USE 2 INHALATIONS BY MOUTH EVERY 6 HOURS, [facility] ([facility]), 163, cm, 11/04/22 15:03:00 EDT, Height/Length Dosing, 76, kg, 11/04/22 15:03:00 EDT, Weight Dosing Flonase 0.05 mg/inh Soldier: 1 spray(s), Nasal, BID, 16 gram, Refill(s) 0, each nostril, [facility] ([facility] ), 167.6, cm, 08/24/22 8:10:00 EDT, Height/Length Dosing, 83.4, kg, 08/24/22 8:10:00 EDT, Weight Dosing amLODIPine 5 mg Tab: 5 mg = 1 tab(s), Oral, Daily, # 90 tab(s), Refills(s) 1, Pharmacy: [facility] #[id number], 163, cm, 05/31/23 10:14:00 EST, Height/Length Dosing, 80.2, kg, 05/31/23 10:14:00 EST, Weight Dosing metformin 500 mg ER Tab: 1,000 mg = 2 tab(s), Oral, Daily, # 180 tab(s), Refills(s) 0, Pharmacy: [facility] #[id number], 163, cm, 05/31/23 10:14:00 EST, Height/Length Dosing, 80.2, kg, 05/31/23 10:14:00 EST, Weight Dosing omeprazole 40 mg Cap-DR: See Instructions, TAKE 1 CAPSULE BY MOUTH DAILY, # 90 cap(s), Refills(s) 3, Pharmacy: [facility] ([facility]), 163, cm, 12/15/22 12:03:00 EDT, Height/Length Dosing, 73.3, kg, 12/15/22 12:03:00 EDT, Weight Dosing rosuvastatin 10 mg Tab: See Instructions, TAKE 1 TABLET BY MOUTH DAILY, # 90 tab(s), Refills(s) 3, Pharmacy: [facility] #[id number], 163, cm, 05/31/23 10:14:00 EST, Height/Length Dosing, 80.2, kg, 05/31/23 10:14:00 EST, Weight Dosing Documented Medications Documented APAP/butalbital/caffein e 325 mg-50 mg-40 mg Tab: Refill(s) 0, Headache Aspir 81: 81 mg, Oral, Daily, Refills(s) 0, Prophylaxis Metamucil: Refills(s) 0, Constipation [facility] Prescription: See Instructions, one touch ultra lancets Use to test sugars once a day [facility] Prescription: See Instructions, one touch ultra test strips test sugars once a day Multivitamin, Therapeutic w/ Minerals: Oral, Daily, Refill(s) 0, Prophylaxis Plavix 75 mg Tab: 75 mg = 1 tab(s), Oral, Daily, Refills(s) 0, Blood Thinner dorzolamide ophthalmic 2% solution: 1 drop(s), OPTH, BID, Refill(s) 0, each eye fluticasone Nasal 0.05 mg/inh Evarts: Refill(s) 0, 1 Unknown, 0 Refill(s), 1 Soldier. furosemide 20 mg Tab: 20 mg = 1 tab(s), Oral, Daily, Refills(s) 0, diuretic/water pill glimepiride 2 mg Tab: 2 Unknown, ORAL, 0 Refill(s), Take 2 mg by mouth., Refills(s) 0 irbesartan 300 mg Tab: 300 mg = 1 tab(s), Oral, Daily, Refills(s) 0, High blood pressure isosorbide mononitrate: 30 mg, Oral, qAM, Refills(s) 0, High blood pressure latanoprost Opth 0.005% Janee: Refill(s) 0, 10 mL, 0 Refill(s) latanoprost ophthalmic: qPM, Refill(s) 0, Dry eyes loperamide 2 mg Tab: 2 mg = 1 tab(s), Oral, q4hr, Refills(s) 0, Diarrhea sotalol 80 mg Tab: 0.5 tab, Oral, BID, Refills(s) 0, High blood pressure tiZANidine 4 mg Tab: 4 mg = 1 tab(s), Oral, Daily, Refills(s) 0, Spasm zonisamide 25 mg Cap: 25 mg = 1 cap(s), Oral, BID, Refills(s) 0, Home Medications (25) Active Albuterol (Eqv-ProAir HFA) 90 mcg/inh inhalation aerosol See Instructions amLODIPine 5 mg Tab 5 mg = 1 tab(s), Oral, Daily APAP/butalbital/caffein e 325 mg-50 mg-40 mg Tab Aspir 81 81 mg, Oral, Daily dorzolamide ophthalmic 2% solution 1 drop(s), OPTH, BID Flonase 0.05 mg/inh Soldier 1 spray(s), Nasal, BID fluticasone Nasal 0.05 mg/inh Evarts furosemide 20 mg Tab 20 mg = 1 tab(s), Oral, Daily glimepiride 2 mg Tab irbesartan 300 mg Tab 300 mg = 1 tab(s), Oral, Daily isosorbide mononitrate 30 mg, Oral, qAM latanoprost ophthalmic , qPM latanoprost Opth 0.005% Janee loperamide 2 mg Tab 2 mg = 1 tab(s), Oral, q4hr Metamucil metformin 500 mg ER Tab 1,000 mg = 2 tab(s), Oral, Daily Misc DME Prescription See Instructions Misc DME Prescription See Instructions Multivitamin, Thera (more content not included)... Normal [facility] Comment on above: Result Comment: Elec tronically Signed By: Macario Martinez Jr., DO\.br\Date and Time Signed: 06/14/23 12:59 EST Operative Reporton Operative Report [id number] IFF [facility] Insurance Correspondenceon 0 06-04-2023 Insurance Correspondence [id number] TIFF [facility] Consent for Procedure/Surger yon 06-02-2023 Consent for Procedure/Surgery [id number] 0TIFF Normal [facility] Formson 06-01-2023 Forms [id number] FF Normal [facility] Ambulatory Visit Summaryon 0 05-31-2023 Ambulatory Visit Summary JEREMIE BENNETT :1940 Visit Date:05/31/2023 Ambulatory Visit Instructions Your Diagnosis Type 2 diabetes mellitus without complication, without long-term current use of insulin Primary hypertension Diabetic autonomic neuropathy associated with type 2 diabetes mellitus Chronic GERD BMI 30.0-30.9,adult Class 1 obesity due to excess calories in adult Former smoker Your Care Team Attending Physician - Sabino Cooper MD Primary Care Physician - Sabino Cooper MD This Is Your Medications List amlodipine (amLODIPine 5 mg Tab) metformin (metformin 500 mg ER Tab) rosuvastatin (rosuvastatin 10 mg Tab) Contact prescribing physician if questions or concerns APAP/butalbital/caffein e (APAP/butalbital/caffei ne 325 mg-50 mg-40 mg Tab) Misc Prescription (Misc DME Prescription) Misc Prescription (Misc DME Prescription) albuterol (Albuterol (Eqv-ProAir HFA) 90 mcg/inh inhalation aerosol) aspirin (Aspir 81) clopidogrel (Plavix 75 mg Tab) dorzolamide ophthalmic (dorzolamide ophthalmic 2% solution) fluticasone nasal (Flonase 0.05 mg/inh Soldier) fluticasone nasal (fluticasone Nasal 0.05 mg/inh Evarts) furosemide (furosemide 20 mg Tab) glimepiride (glimepiride 2 mg Tab) irbesartan (irbesartan 300 mg Tab) isosorbide mononitrate latanoprost ophthalmic latanoprost ophthalmic (latanoprost Opth 0.005% Janee) loperamide (loperamide 2 mg Tab) multivitamin with minerals (Multivitamin, Therapeutic w/ Minerals) omeprazole (omeprazole 40 mg Cap-DR) psyllium (Metamucil) sotalol (sotalol 80 mg Tab) tizanidine (tiZANidine 4 mg Tab) zonisamide (zonisamide 25 mg Cap) Procedures Performed Esophagogastroduodenosc opy (04/15/2023), Esophagogastroduodenosc opy (05/20/2020), Angioplasty, Cardiac pacemaker procedure, Cataract, Cholecystectomy, Colonoscopy, Hernia repair, Prostate excision, Tonsillectomy, Vasectomy. Discharge Vitals Temperature (Temporal Artery) 36.5 ?C Heart Rate (Peripheral) 64 Respiratory Rate 16 Blood Pressure 116/72 Height 163 cm Height 64 in Weight 80.2 kg Weight 176.44 lb BMI 30.19 What to do next Scheduled Follow-Up Appointments Wednesday 1:20 PM EST With: Flori GARZA, Anjali Omalley Where: [facility] Invalid Interpretation Code [address] [place] [address]- \.br\ Wednesday 1:00 PM EDT \.br\ With:\.br\ Where: [facility] Medicine [facility] Family Medicine Office/Clini c Noteon 05-31-2023 Family Medicine Office/Clinic Note HPI Staff Jeremie is an 82 year old male presenting for 6 month follow up htn, Dm Do you have any of the following symptoms? Foot Exam: thinks done at last OV with Dr Cooper Eye Exam: UTD Last A1C: 6.16 November 2022 Statin: crestor 10mg Patient is here for follow up on hypertension. How often are you checking your blood pressure? occasionally What are your average readings? 120-125/80 _ Yearly BMP: 03/10/23 Flu: UTD 04/12/23 questions/concerns: is there an option to change the metformin stomach upset and diarrhea Hasn't heard from GI from back in December to get colonoscopy arranged History of Present Illness Here for follow up. - NO new issues. - Needs A1c recheck - Still having some diarrhea Review of Systems PHQ Score Initial Depression Screen Score: 0 SCORE Physical Exam Vitals & Measurements T: 36.5 ?C(Temporal Artery) HR: 64(Peripheral) RR: 16 BP: 116/72 SpO2: 95% HT: 64 in HT: 163 cm WT: 80.2 kg WT: 176.44 lb BMI: 30.19 General: alert, no acute distress ENMT: oral mucosa moist, Cardiovascular: regular rate and rhythm, normal peripheral perfusion Respiratory: Lungs CTA, respirations non labored Extremities: no deformity, no trauma Neurological: oriented x 4, LOC appropriate for age, CN II-XII intact, motor strength equal & normal bilaterally, speech normal Abdomen: Soft, Nontender, Non-distended, + BS Assessment/Plan 1. Type 2 diabetes mellitus without complication, without long-term current use of insulin (E11.9: Type 2 diabetes mellitus without complications) - Need to recheck labs - Will cut the metformin in half and have him take it only in the AM after breakfast. - See if this helps with the diarrhea Ordered: Body Mass Index (BMI) documented 3008F Current tobacco non-user 1036F Depression Screening Negative 3352F HgbA1c Influenza immunization administered or previously received 4274F Microalbumin Level Urine Most recent diastolic blood pressure <80 mm Hg 3078F Patient screen for fall risk: no falls in last year or 1 fall with no injury in last year 1101F Systolic BP <130 mm Hg (Most Recent) 3074F U Protein/Creat Ratio 2. Primary hypertension (I10: Essential (primary) hypertension) - At goal Ordered: Body Mass Index (BMI) documented 3008F Current tobacco non-user 1036F Depression Screening Negative 3352F HgbA1c Influenza immunization administered or previously received 4274F Microalbumin Level Urine Most recent diastolic blood pressure <80 mm Hg 3078F Patient screen for fall risk: no falls in last year or 1 fall with no injury in last year 1101F Systolic BP <130 mm Hg (Most Recent) 3074F U Protein/Creat Ratio 3. Diabetic autonomic neuropathy associated with type 2 diabetes mellitus (E11.43: Type 2 diabetes mellitus with diabetic autonomic (poly)neuropathy) - Off the gabapentin - Seeing pain - Ok to hold plavix - Discussed pro's and con's of this. Ordered: Body Mass Index (BMI) documented 3008F Current tobacco non-user 1036F Depression Screening Negative 3352F HgbA1c Influenza immunization administered or previously received 4274F Microalbumin Level Urine Most recent diastolic blood pressure <80 mm Hg 3078F Patient screen for fall risk: no falls in last year or 1 fall with no injury in last year 1101F Systolic BP <130 mm Hg (Most Recent) 3074F U Protein/Creat Ratio 4. Chronic GERD (K21.9: Gastro-esophageal reflux disease without esophagitis) - Continue on the PPI Ordered: Body Mass Index (BMI) documented 3008F Current tobacco non-user 1036F Depression Screening Negative 3352F HgbA1c Influenza immunization administered or previously received 4274F Microalbumin Level Urine Most recent diastolic blood pressure <80 mm Hg 3078F Patient screen for fall risk: no falls in last year or 1 fall with no injury in last year 1101F Systolic BP <130 mm Hg (Most Recent) 3074F U Protein/Creat Ratio 5. BMI 30.0-30.9,adult (Z68.30: Body mass index [BMI] 30.0-30.9, adult) - BMI education given Ordered: Body Mass Index (BMI) documented 3008F Current tobacco non-user 1036F Depression Screening Negative 3352F HgbA1c Influenza immunization administered or previously received 4274F Microalbumin Level Urine Most recent diastolic blood pressure <80 mm Hg 3078F Patient screen for fall risk: no falls in last year or 1 fall with no injury in last year 1101F Systolic BP <130 mm Hg (Most Recent) 3074F U Protein/Creat Ratio 6. Class 1 obesity due to excess calories in adult (E66.09: Other obesity due to excess calories) - Diet and exercise advised. Ordered: Body Mass Index (BMI) documented 3008F Current tobacco non-user 1036F Depression Screening Negative 3352F HgbA1c Influenza immunization administered or previously received 4274F Microalbumin Level Urine Most recent diastolic blood pressure <80 mm Hg 3078F Patient screen for fall risk: no falls in last year or 1 fall with no injury in last year 1101F (more content not included)... Normal [facility] Comment on above: Result Comment: Elec tronically Signed By: Hermes CASON, Sabino Rosa\.br\Date and Time Signed: 05/31/23 10:38 EST Patient Educationon 05-31-19 Patient Education Cardiovascular Hypertension, Adult High blood pressure (hypertension) is when the force of blood pumping through the arteries is too strong. The arteries are the blood vessels that carry blood from the heart throughout the body. Hypertension forces the heart to work harder to pump blood and may cause arteries to become narrow or stiff. Untreated or uncontrolled hypertension can lead to a heart attack, heart failure, a stroke, kidney disease, and other problems. A blood pressure reading consists of a higher number over a lower number. Ideally, your blood pressure should be below 120/80. The first ( top ) number is called the systolic pressure. It is a measure of the pressure in your arteries as your heart beats. The second ( bottom ) number is called the diastolic pressure. It is a measure of the pressure in your arteries as the heart relaxes. What are the causes? The exact cause of this condition is not known. There are some conditions that result in high blood pressure. What increases the risk? Certain factors may make you more likely to develop high blood pressure. Some of these risk factors are under your control, including: ? Smoking. ? Not getting enough exercise or physical activity. ? Being overweight. ? Having too much fat, sugar, calories, or salt (sodium) in your diet. ? Drinking too much alcohol. Other risk factors include: ? Having a personal history of heart disease, diabetes, high cholesterol, or kidney disease. ? Stress. ? Having a family history of high blood pressure and high cholesterol. ? Having obstructive sleep apnea. ? Age. The risk increases with age. What are the signs or symptoms? High blood pressure may not cause symptoms. Very high blood pressure (hypertensive crisis) may cause: ? Headache. ? Fast or irregular heartbeats (palpitations). ? Shortness of breath. ? Nosebleed. ? Nausea and vomiting. ? Vision changes. ? Severe chest pain, dizziness, and seizures. How is this diagnosed? This condition is diagnosed by measuring your blood pressure while you are seated, with your arm resting on a flat surface, your legs uncrossed, and your feet flat on the floor. The cuff of the blood pressure monitor will be placed directly against the skin of your upper arm at the level of your heart. Blood pressure should be measured at least twice using the same arm. Certain conditions can cause a difference in blood pressure between your right and left arms. If you have a high blood pressure reading during one visit or you have normal blood pressure with other risk factors, you may be asked to: ? Return on a different day to have your blood pressure checked again. ? Monitor your blood pressure at home for 1 week or longer. If you are diagnosed with hypertension, you may have other blood or imaging tests to help your health care provider understand your overall risk for other conditions. How is this treated? This condition is treated by making healthy lifestyle changes, such as eating healthy foods, exercising more, and reducing your alcohol intake. You may be referred for counseling on a healthy diet and physical activity. Your health care provider may prescribe medicine if lifestyle changes are not enough to get your blood pressure under control and if: ? Your systolic blood pressure is above 130. ? Your diastolic blood pressure is above 80. Your personal target blood pressure may vary depending on your medical conditions, your age, and other factors. Follow these instructions at home: Eating and drinking ? Eat a diet that is high in fiber and potassium, and low in sodium, added sugar, and fat. An example of this eating plan is called the DASH diet. DASH stands for Dietary Approaches to Stop Hypertension. To eat this way: ? Eat plenty of fresh fruits and vegetables. Try to fill one half of your plate at each meal with fruits and vegetables. ? Eat whole grains, such as whole-wheat pasta, brown rice, or whole-grain bread. Fill about one fourth of your plate with whole grains. ? Eat or drink low-fat dairy products, such as skim milk or low-fat yogurt. ? Avoid fatty cuts of meat, processed or cured meats, and poultry with skin. Fill about one fourth of your plate with lean proteins, such as fish, chicken without skin, beans, eggs, or tofu. ? Avoid pre-made and processed foods. These tend to be higher in sodium, added sugar, and fat. ? Reduce your daily sodium intake. Many people with hypertension should eat less than 1,500 mg of sodium a day. ? Do not drink alcohol if: ? Your health care provider tells you not to drink. ? You are , may be , or are planning to become . ? If you drink alcohol: ? Limit how much you have to: ? 0?1 drink a day for women. ? 0?2 drinks a day for men. ? Know how much alcohol is in your drink. In the [place] one drink equals one 12 oz bottle of beer (355 mL), one 5 oz glass of wine (148 mL), or one 1? oz glass (more content not included)... [facility] Consultation Noteon 05-27-19 24 Consultation Note [id number] IFF [facility] Ambulatory Visit Summaryon 0 05-25-2023 Ambulatory Visit Summary JEREMIE BENNETT :1940 Visit Date:05/25/2023 Ambulatory Visit Instructions Your Diagnosis RUQ pain Loose stools Bile salt-induced diarrhea Pancreatic cyst Chronic GERD Your Care Team Attending Physician - Anjali Ruby CNP Primary Care Physician - Sabino Cooper MD This Is Your Medications List cholestyramine (Questran 4 g/9 g oral powder) Contact prescribing physician if questions or concerns APAP/butalbital/caffein e (APAP/butalbital/caffei ne 325 mg-50 mg-40 mg Tab) Misc Prescription (Mis DME Prescription) Misc Prescription (Misc DME Prescription) albuterol (Albuterol (Eqv-ProAir HFA) 90 mcg/inh inhalation aerosol) amlodipine (amLODIPine 5 mg Tab) aspirin (Aspir 81) clopidogrel (Plavix 75 mg Tab) dorzolamide ophthalmic (dorzolamide ophthalmic 2% solution) fluticasone nasal (Flonase 0.05 mg/inh Soldier) fluticasone nasal (fluticasone Nasal 0.05 mg/inh Evarts) furosemide (furosemide 20 mg Tab) gabapentin (gabapentin 600 mg Tab) glimepiride (glimepiride 2 mg Tab) irbesartan (irbesartan 300 mg Tab) isosorbide mononitrate latanoprost ophthalmic latanoprost ophthalmic (latanoprost Opth 0.005% Janee) loperamide (loperamide 2 mg Tab) metformin (metformin 500 mg ER Tab) multivitamin with minerals (Multivitamin, Therapeutic w/ Minerals) omega-3 polyunsaturated fatty acids ([place]-3 Fish Oil) omeprazole (omeprazole 40 mg Cap-DR) polyethylene glycol 3350 with electrolytes (Plenvu oral powder for reconstitution) psyllium (Metamucil) rosuvastatin (rosuvastatin 10 mg Tab) sotalol (sotalol 80 mg Tab) sucralfate (sucralfate 1 g Tab) tizanidine (tiZANidine 4 mg Tab) zonisamide (zonisamide 25 mg Cap) Procedures Performed Esophagogastroduodenosc opy (04/15/2023), Esophagogastroduodenosc opy (05/20/2020), Angioplasty, Cardiac pacemaker procedure, Cataract, Cholecystectomy, Colonoscopy, Hernia repair, Prostate excision, Tonsillectomy, Vasectomy. Discharge Vitals Heart Rate (Peripheral) 88 Respiratory Rate 16 Blood Pressure 113/65 Height 163 cm Height 64 in Weight 79.8 kg Weight 175.56 lb BMI 30.04 What to do next Scheduled Follow-Up Appointments Wednesday 10:00 AM EST With: Hermes CASON, Sabino Rosa Where: [facility] Invalid Interpretation Code [address] [place] [id number] \.br\ Wednesday 1:00 PM EDT \.br\ With:\.br\ Where: [facility] Gastroenterology Office/Clin ic Noteon 05-25-2023 Gastroenterology Office/Clinic Note Chief Complaint 3 month follow up HPI Staff This is a 82 year old male who presents today for a follow-up from 03/10/23 office visit. Patient also had EGD, labs, stool studies and [facility] referral to review History of Present Illness Patient is a 82-year-old male who presents for follow-up. Patient was previously evaluated 03/10/2023 for generalized abdominal pain. Patient previously reported history of COVID-19 09/2022. Patient also previously reported having RUQ abdominal pain for years. Presents with his today. Patient with history of pacemaker, CAD with stents and is taking Plavix. Patient was previously referred to [facility] regarding pancreatic cyst. Patient had previous EGD 05/[address] Larsen that revealed clean-based ulcers in the antrum, mild antral gastritis, subcentimeter gastric polyps, biopsy of stomach revealed moderate chronic active gastritis, negative for intestinal metaplasia, stomach polyp revealed fundic gland polyp. Patient with family history of GI cancer?patient's paternal grandfather with stomach cancer, cousin with pancreatic cancer. Patient had previous colonoscopy in 2018 that revealed diverticulosis and hemorrhoids. Previous review of outside records from [facility] from 03/[address] abdomen/pelvis that revealed prominent amount of fluid in colon suggesting diarrhea, diverticulosis. Patient had previous ultrasound of RUQ 09/2019 at outside facility that revealed 0.7 cm pancreatic cyst and cholelithiasis. Patient reports history of cholecystectomy in 2019. Previous labs at outside facility [id number] revealed normal BUN, normal creatinine, normal LFTs, normal H&H. Outside record from [facility] from 04/01/2020 indicated patient had RUQ ultrasound that revealed no acute process, fatty change in liver. Ultrasound of abdomen 12/17/2022 revealed 6 mm pancreatic cyst and radiology recommended MRI with contrast or MRCP in 2 years. MRCP completed at [facility] 02/16/2023 showed 3 mm cystic lesion in pancreatic body. I recommended for patient to be referred to [facility] for further evaluation regarding pancreatic cyst and patient was referred. Patient reported during most recent visit with me that he was having generalized abdominal pain described as achy. He reported abdominal pain was worse after eating. He indicated his acid reflux was well-controlled with omeprazole 40 mg daily. Was having primarily loose stools. Patient was ordered EGD, CBC/CMP. Patient was also ordered stool testing to evaluate for infectious process. Patient reported dysphagia had improved. Patient had previous EGD with general surgery 04/15/2023 that was normal. Biopsy of antrum revealed mild chronic inactive gastritis, negative for intestinal metaplasia, negative for H. pylori. Stool testing negative for infectious process 03/10/23. Patient was evaluated at [facility]: Dr. 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 During today's visit, patient reports he has been having RUQ pain described as achy over the last 3-4 years, occurring nearly every day. Denies specific food triggers of abdominal pain. Explains omeprazole 40mg daily is controlling his acid reflux. Is having oily/loose stools over the last 3-4 years, occurring daily. Is currently taking 1 capsule of fiber supplementation daily that is not helping his loose stools. Is also taking metformin for years. Hx. cholecystectomy in 2019. Denies black/bloody stools, nausea/vomiting, fevers/chills, and denies having any other GI complaints. Review of Systems PHQ Score Initial Depression Screen Score: 0 SCORE ROS - Provider Constitutional: no fever, no chills. Skin: no Jaundice. ENMT: Denies dysphagia and heartburn. Respiratory: no shortness of breath. Cardiovascular: no chest pain. Gastrointestinal: no nausea, no vomiting, yes loose stool, no GI bleeding. Physical Exam Vitals & Measurements HR: 88(Peripheral) RR: 16 BP: 113/65 HT: 64 in HT: 163 cm WT: 79.8 kg WT: 175.56 lb BMI: 30.04 General: Well developed, well nourished, in no acute distress Head: Normocephalic/atraumati c Lungs: Normal respiratory effort and clear to auscultation Cardio: Regular rate and rhythm, normal S1 and S2, no murmur, no rub Abdomen: Soft, non-distended, mildly tender in left mid umbilical area. Normoactive bowel sounds present in all 4 abdominal quadrants, bilaterally. Mental Status: Alert and oriented x3. Normal mood and affect Assessment/Plan 1. RUQ pain (R10.11: Right upper quadrant pain) RUQ pain occurring nearly every day. Physical exam revealed mildly tender in left mid umbilical area. Previous EGD 05/[address] Larsen that revealed clean-based ulcers in the antrum, mild antral gastritis, subcentimeter gastric polyps, biopsy of stomach revealed moderate chronic active gastritis, negative for intestinal metaplasia, sto (more content not included)... Normal [facility] Comment on above: Result Comment: Elec tronically Signed By: Anjali Ruby CNP\.br\Date and Time Signed: 05/25/23 12:52 EST Patient Educationon 05-25-19 Patient Education Gastroenterology Food Choices for Gastroesophageal Reflux Disease, Adult When you have gastroesophageal reflux disease (GERD), the foods you eat and your eating habits are very important. Choosing the right foods can help ease the discomfort of GERD. Consider working with a dietitian to help you make healthy food choices. What are tips for following this plan? Reading food labels ? Look for foods that are low in saturated fat. Foods that have less than 5% of daily value (DV) of fat and 0 g of trans fats may help with your symptoms. Cooking ? Cook foods using methods other than frying. This may include baking, steaming, grilling, or broiling. These are all methods that do not need a lot of fat for cooking. ? To add flavor, try to use herbs that are low in spice and acidity. Meal planning ? Choose healthy foods that are low in fat, such as fruits, vegetables, whole grains, low-fat dairy products, lean meats, fish, and poultry. ? Eat frequent, small meals instead of three large meals each day. Eat your meals slowly, in a relaxed setting. Avoid bending over or lying down until 2?3 hours after eating. ? Limit high-fat foods such as fatty meats or fried foods. ? Limit your intake of fatty foods, such as oils, butter, and shortening. ? Avoid the following as told by your health care provider: ? Foods that cause symptoms. These may be different for different people. Keep a food diary to keep track of foods that cause symptoms. ? Alcohol. ? Drinking large amounts of liquid with meals. ? Eating meals during the 2?3 hours before bed. Lifestyle ? Maintain a healthy weight. Ask your health care provider what weight is healthy for you. If you need to lose weight, work with your health care provider to do so safely. ? Exercise for at least 30 minutes on 5 or more days each week, or as told by your health care provider. ? Avoid wearing clothes that fit tightly around your waist and chest. ? Do not use any products that contain nicotine or tobacco. These products include cigarettes, chewing tobacco, and vaping devices, such as e-cigarettes. If you need help quitting, ask your health care provider. ? Sleep with the head of your bed raised. Use a wedge under the mattress or blocks under the bed frame to raise the head of the bed. ? Chew sugar-free gum after mealtimes. What foods should I eat? Eat a healthy, well-balanced diet of fruits, vegetables, whole grains, low-fat dairy products, lean meats, fish, and poultry. Each person is different. Foods that may trigger symptoms in one person may not trigger any symptoms in another person. Work with your health care provider to identify foods that are safe for you. The items listed above may not be a complete list of recommended foods and beverages. Contact a dietitian for more information. What foods should I avoid? Limiting some of these foods may help manage the symptoms of GERD. Everyone is different. Consult a dietitian or your health care provider to help you identify the exact foods to avoid, if any. Fruits Any fruits prepared with added fat. Any fruits that cause symptoms. For some people this may include citrus fruits, such as oranges, grapefruit, pineapple, and nury. Vegetables Deep-fried vegetables. Citizen [place] fries. Any vegetables prepared with added fat. [...] symptoms, talk with your health care provider about taking medicines. Where to find more information ? [employer]intestinal [employer]: aboutgerd.org Summary ? When you have gastroesophageal reflux di (more content not included)... Normal [facility] Consultation Noteon 05-24-19 Consultation Note [id number] IFF Normal [facility] RAD - MISCon 05-24-2023 RAD - MIS [id number] IFF Normal [facility] Operative Reporton Operative Report [id number] IFF Normal [facility] IntraOperative Documentson 1 06-22-2022 IntraOperative Documents [id number] TIFF Normal [facility] Reminderson 04-21-2023 Reminders - From: Letty Valdez To: Aleida Gonzalez; Jennifer Bishop; Letty Valdez; Sent: 12/15/2022 13:00:41 EDT Show up: 12/15/2022 12:59:00 EDT Subject: Ambulatory Reminder Due Date/Time: 01/15/2023 12:59:00 EDT Reminder/Recall Pt needs to schedule an EGD w/poss dilation and a Colonoscopy with Dr. Henderson once he is able to take [facility]. Pt unable to go to [facility] due to respiratory issues. He will also need to hold his Plavix 5 days prior - his endo tech is Dr. Arellano. He has signed a consent and it is scanned into his chart already. Ordered Plenvu and I have gone over instructions with patient and sent him home with a packet. EGD performed by Dr Powers on 04/15. Referred to [facility]. Colonoscopy was not done - last scope 2017. Normal [facility] Progress Note-Physicianon Progress Note-Physician Patient: JEREMIE BENNETT Age: 82 years Sex: Male : 1940 Associated Diagnoses: None Author: MD Matt, Anaya Salgado Postoperative Information Postoperative disposition: Postoperative disposition: To PACU. Optimetrix number: Optimetrix number [id number]. Anesthetic utilized: General. Health Status Allergies: Allergic [...] meets criteria ( To home ). Normal [facility] Comment on above: Result Comment: Elec tronically Signed By: MD Matt, Anaya Salgado\.br\Date and Time Signed: 04/17/23 20:25 EST [...] MOUTH EVERY 6 HOURS, [facility] ([facility]), 163, cm, 11/04/22 15:03:00 EDT, Height/Length Dosing, 76, kg, 11/04/22 15:03:00 EDT, Weight Dosing Flonase 0.05 mg/inh Soldier: 1 spray(s), Nasal, BID, 16 gram, Refill(s) 0, each nostril, [facility] ([facility] ), 167.6, cm, 08/24/22 8:10:00 EDT, Height/Length Dosing, 83.4, kg, 08/24/22 8:10:00 EDT, Weight Dosing Plenvu oral powder for reconstitution: See Instructions, 1 EA, Refill(s) 0, Prior to colonoscopy., [id number], 163, cm, 12/15/22 12:03:00 EDT, Height/Length Dosing, [...] cap(s), Refills(s) 3, Pharmacy: [facility] ([facility]), 163, cm, 12/15/22 12:03:00 EDT, Height/Length Dosing, 73.3, kg, 12/15/22 12:03:00 EDT, Weight Dosing rosuvastatin 10 mg Tab: See Instructions, TAKE 1 TABLET BY MOUTH DAILY, # 90 tab(s), Refills(s) 3, Pharmacy: [facility] ([facility]), 163, cm, 11/04/22 15:03:00 EDT, Height/Length Dosing, 76, kg, 11/04/22 15:03:00 EDT, Weight Dosing Documented Medications Documented APAP/butalbital/caffein e 325 mg-50 mg-40 mg Tab: Refill(s) 0, Headache Aspir 81: 81 mg, Oral, Daily, Refills(s) 0, Prophylaxis Metamucil: Refills(s) 0, Constipation Misc DME Prescription: See Instructions, one touch ultra lancets Use to test sugars once a day Misc DME Prescription: See Instructions, one touch ultra test strips test sugars once a day Multivitamin, Therapeutic w/ Minerals: Oral, Daily, Refill(s) 0, Prophylaxis [place]-3 Fish Oil: Oral, Daily, Refills(s) 0, Prophylaxis [...] All Problems Primary hypertension / SNOMED CT 15066989 / Confirmed Hypercholesterolemia / SNOMED CT 35748539 / Confirmed Osteoarthritis / SNOMED CT 5494937118 / Confirmed Sleep apnea / SNOMED CT 676127049 / Confirmed Vitamin D deficiency / SNOMED CT 40942265 / Confirmed GERD with apnea / SNOMED CT 2917881619 / Confirmed Diabetic autonomic neuropathy associated with type 2 diabetes mellitus / SNOMED CT 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 / Confirmed Glaucoma / SNOMED CT 55462891 / Confirmed Pacemaker / SNOMED CT 8601955862 / Confirmed Type 2 diabetes mellitus without complication, without long-term current use of insulin / ICD-10-CM E11.9 / Confirmed Upper abdominal pain / SNOMED CT 503406525 / Confirmed Lower abdominal pain / SNOMED CT 12254732 / Confirmed PUD (peptic ulcer disease) / SNOMED CT 94543577 / Confirmed BMI 30.0-30.9,adult / SNOMED CT 643511249 / Confirmed Right flank pain, chronic / SNOMED CT 442668416 / Confirmed Right-sided chest wall pain / SNOMED CT 990751018 / Confirmed Personal history of prostate cancer / SNOMED CT 5417177823 / Confirmed Leaking of urine / SNOMED CT 8510737906 / Confirmed Urinary incontinence without sensory awareness / SNOMED CT 4913201478 / Confirmed Mixed incontinence / SNOMED (more content not included)... Normal [facility] Comment on above: Result Comment: Elec tronically Signed By: MD Matt, Anaya Salgado\.br\Date and Time Signed: 04/17/23 20:24 EST Consenton 04-16-2023 Consent [id number] IFF Normal [facility] Discharge Instructionson Discharge Instructions [id number] IFF Normal [facility] Main OR Intraoperative Recor don 04-16-2023 Main OR Intraoperative Record IntraOp Document Type FT Summary Primary Physician: Gordy Powers MD Finalized Date/Time: 04/16/23 09:59:57 Pt. Name: JEREMIE BENNETT/Sex: 1940 Male Med Rec #: [id number] Physician: Gordy Powers MD Financial #: [id number] Pt. Type: O Room/Bed: / Admit/Disch: 04/15/23 [...] Entry 2 Entry 3 Case Attendee Jose LYMPHEDEMA THERAPIST, Minerva Perez CST, Negar Campbell Role Performed LYMPHEDEMA THERAPIST Staff - Other Scrub - Primary Time In 04/15/23 13:08:00 04/15/23 13:08:00 04/15/23 13:08:00 Time Out 04/15/23 13:21:00 04/15/23 13:21:00 04/15/23 13:21:00 Procedure EGD(.) EGD(.) EGD(.) Comments Dr. Gutierrez is supervising Last Modified By: Zohaib ESCALANTE, Sabine Penny RN, Sabine Penny RN, Sabine Tripp 04/15/23 13:21:27 04/15/23 13:21:27 04/15/23 13:21:27 Entry 4 Entry 5 Case Attendee Gio CASON, oGrdy Penny RN, Sabine Tripp Role Performed Surgeon - Primary Town Planner - Primary Time In 04/15/23 13:08:00 04/15/23 [...] No Time Out Minerva Javier, Given Participants Jose FERGUSON, Rick Miller CST, Negar Campbell, Gio CASON, Zohaib Ferrell RN, Sabine Tripp Time Out Complete 04/15/23 13:10:00 Outcomes Met? [...] Procedure Yes Primary Surgeon Gordy Powers MD 04/15/23 13:12:00 Stop 04/15/23 13:18:00 Anesthesia Type [...] and tissue Entry 1 Skin Integrity Intact, [place], Warm, and Skin Abnormality No Dry Outcomes [...] Positioning Device (more content not included)... Normal [facility] Postoperative Documentson Postoperative Documents [id number] IFF Normal [facility] Consent for Treatmenton 03-19 Consent for Treatment [id number] IFF Normal [facility] Discharge Instructionson Discharge Instructions JEREMIE BENNETT :1940 Visit Date:04/15/2023 Inpatient Discharge Instructions Your Care Team Admitting Physician - Gordy Poewrs MD Referring Physician - Gordy Powers MD Reason for Your Visit ABDOMINAL PAIN Tests Performed Pathology Tissue Exam -- Results Pending -- Please visit your patient portal for your results or contact your primary care physician. This Is Your Medications List APAP/butalbital/caffein e (APAP/butalbital/caffei ne 325 mg-50 mg-40 mg Tab) Misc Prescription ([facility] DME Prescription) Misc Pres[facility] ([facility]) albuterol (Albuterol (Eqv-ProAir HFA) 90 mcg/inh inhalation aerosol) amlodipine (amLODIPine 5 mg Tab) aspirin (Aspir 81) clopidogrel (Plavix 75 mg Tab) dorzolamide ophthalmic (dorzolamide ophthalmic 2% solution) fluticasone nasal (Flonase 0.05 mg/inh Soldier) furosemide (furosemide 20 mg Tab) gabapentin (gabapentin 600 mg Tab) irbesartan (irbesartan 300 mg Tab) isosorbide mononitrate latanoprost ophthalmic loperamide (loperamide 2 mg Tab) metformin (metformin 500 mg ER Tab) multivitamin with minerals (Multivitamin, Therapeutic w/ Minerals) omega-3 polyunsaturated fatty acids ([place]-3 Fish Oil) omeprazole (omeprazole 40 mg Cap-DR) [...] Event Name Event Result Pharmacy Information Other: [place], [place] Previously Scheduled Follow-Up Appointments Wednesday 1:40 PM EST With: Anjali Ruby CNP Where: [facility] Invalid Interpretation Code [address] [place] [address]- \.br\ Wednesday 1:00 PM EDT \.br\ With:\.br\ Where: [facility] Comment on above: Result Comment: Elec tronically Signed By: Marcel RN, Gris Araiza\.br\Date and Time Signed: 04/15/23 13:27 EST Inpatient Patient Summaryon 04-15-2023 Inpatient Patient Summary [address] [address] [facility] Clinical Discharge Instructions PERSON INFORMATION Name: JEREMIE BENNETT PHYSICIANS Admitting Physician: Gordy Powers MD Attending Physician: Gordy Powers MD PCP: Sabino Cooper MD Discharge Diagnosis: Comment: PATIENT EDUCATION INFORMATION Instructions: Upper Endoscopy, Adult, Care After; Endoscopy, Care After Procedure [facility]) Medication Leaflets: Follow up: With: Address: When: Gordy Powers MD, SUR Comments: Office will call with results. Type Location Start [facility] Follow Up [facility] 05/03/2023 1:40 PM 05/03/2023 2:00 PM Confirmed FM Open FT [facility] 05/31/2023 10:00 AM 05/31/2023 10:15 AM Confirmed FM Medicare Wellness Subsequent FT [facility] 11/08/2023 1:00 PM 11/08/2023 2:00 [...] each eye. fluticasone nasal (Flonase 0.05 mg/inh Soldier) 1 Sprays Nasal Inhalation 2 times a [...] Tab) By Mouth 2 times a day. [facility] Prescription ([facility] DME Prescription) one touch ultra lancets Use to test sugars once a day. [facility] Prescription ([facility] DME Prescription) one touch ultra test strips test sugars once a day. multivitamin with minerals (Multivitamin, Therapeutic w/ Minerals) By Mouth every day. omega-3 polyunsaturated fatty acids ([place]-3 Fish Oil) By Mouth every day. omeprazole [...] Mouth 2 times a day. Comment: Catherine [facility] Main OR PACU I Recordon 03-19 Main OR PACU I Record PACU Phase I Document Type FT Summary Primary Physician: Gordy Powers MD Finalized Date/Time: 04/15/23 13:58:46 Pt. Name: JEREMIE BENNETT Annabelle Scott/Sex: 1940 Male Med Rec #: [id number] Physician: Gordy Powers MD Financial #: [id number] Pt. Type: O Room/Bed: / Admit/Disch: 04/15/23 [...] By: Gris Rod RN 04/15/23 13:58 Normal [facility] Main OR Preoperative Recordo n 04-15-2023 Main OR Preoperative Record Holding Area Document Type FT Summary Primary Physician: Gordy Powers MD Finalized Date/Time: 04/15/23 12:46:57 Pt. Name: JEREMIE BENNETT/Sex: 1940 Male Med Rec #: [id number] Physician: Gordy Powers MD Financial #: [id number] Pt. Type: O Room/Bed: / Admit/Disch: 04/15/23 [...] By: Letty Sanches RN 04/15/23 12:46 Normal [facility] Monitor Recordon 04-15-2023 Monitor Record [id number] TIFF Normal [facility] Monitor Record [id number] TIFF Normal [facility] Operative Reporton Operative Report Patient: ROXANNE [...] Devices/ implants: none left in place. Normal [facility] Comment on above: Result Comment: Elec tronically Signed By: Gio CASON, Gordy Rosa\.br\Date and Time Signed: 04/15/23 13:35 EST Outpatient Surgery Discharge Instructionon 04-15-2023 Outpatient Surgery Discharge Instruction [place] [address] Patient Discharge Instructions PERSON INFORMATION Name: JEREMIE [...] will call with results. Type Location Start [facility] Follow Up [facility] 05/03/2023 1:40 PM 05/03/2023 2:00 PM Confirmed FM Open FT [place] 05/31/2023 10:00 AM 05/31/2023 10:15 AM Confirmed FM Medicare Wellness Subsequent FT JAREK Will 11/08/2023 1:00 PM 11/08/2023 2:00 PM Confirmed [...] to serve you. Thank you for choosing [facility] HERE ARE THE MEDICATION CHANGES [...] each eye. fluticasone nasal (Flonase 0.05 mg/inh Soldier) 1 Sprays Nasal Inhalation 2 times a [...] Tab) By Mouth 2 times a day. [facility] Prescription ([facility] DME Prescription) one touch ultra lancets Use to test sugars once a day. [facility] Prescription ([facility] DME Prescription) one touch ultra test strips test sugars once a day. multivitamin with minerals (Multivitamin, Therapeutic w/ Minerals) By Mouth every day. omega-3 polyunsaturated fatty acids ([place]-3 Fish Oil) By Mouth every day. omeprazole [...] ? Follow (more content not included)... Normal [facility] Office Visiton 04-14-2023 Follow-up visit [id number] Yaritza [address] P 1940 M Date Provider Department Center 04/14/2023 271-MARGARET ARELLANO [facility] Family History Problem Relation Age of Onset Coronary artery disease Mother Kidney disease Mother Heart failure Mother Family Status - Relation Status Age at Mother Level of Service:66253 [place] OFFICE/OUTPATIENT ESTABLISHED LOW MDM 20-29 MIN Normal [facility] Consultation Noteon 04-13-20 Consultation Note [id number] [id number] TIFF [facility] Physician Referralon 023 Physician Referral [id number] 022 [id number] FF Normal [facility] Physician Referralon 023 Physician Referral [id number] [id number] TIFF [facility] Physician Referral [id number] 102 [id number] IFF [facility] 04-05-2023 [facility] Telephone ([id number]) JEREMIE BENNETT ([id number]) 1940 M Date Time Provider Department 04/05/23 VAISHALI PRINGLE [id number] During your visit today, we recorded the following information about you: Lolly Dumont 04/05/2023 9:55 AM Signed Received records from [facility]. Reports for imaging listed below scanned. 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 - clopidogrel (PLAVIX) 75 mg tablet - furosemide (LASIX) 20 mg tablet Take 20 mg by mouth. - fluticasone (FLONASE) 50 mcg/actuation nasal spray 1 Soldier. - omeprazole (PRILOSEC) 40 mg capsule Take [...] Encounter Status:Closed by LAMONTE COUCH on 04/06/23 [facility] CNOVon 04-01-2023 CNOV Office Visit ([id number] ) BENNETTJEREMIE CEDILLO ([id number]) 1940 M Date Time Provider Department 04/01/23 1:00 PM VAISHALI PRINGLE [id number] During your visit today, we recorded the [...] GI re (more content not included)... Normal [facility] Insurance Correspondenceon 05-29-2022 Insurance Correspondence [id number]#[id number] TIFF Normal [facility] Physician Referralon 023 Physician Referral [id number] 021 [id number] FF Normal [facility] Giardia, Direct, EIAon 03-22 G. lamblia Ag IA Ql (Stl) Negative Invalid Interpretation Code Negative [facility] Comment on above: Result Comment: Perf ormed at: [facility] [address] [id number] PhD Bernice Bower Performed By: #### 3 [id number], 90132557, 93907226, 52537090, 59969404, [id number] ####[facility] [address] [place] [address] O & P EXAM, ROUTINE, REFLEXo n 03-22-2023 Ova and parasites identified Concentration Nom (Stl) Comment Invalid Interpretation Code [facility] Comment on above: Result Comment: No o va, cysts, or parasites seen. One negative specimen does not rule out the possibility of a parasitic infection. Performed at: [facility] [id number] [place], [place] [id number] PhD Bernice Bower Performed By: #### 3 [id number], 79661327, 60588000, 47007385, 00132070, [id number] ####[facility] [address] [place] [address] O & P Exam, Routineon 2022 Ova and parasites identified LM Nom (Unsp spec) Final report Invalid Interpretation Code [facility] Comment on above: Result Comment: Thes e results were obtained using wet preparation(s) and trichrome stained smear. This test does not include testing for Cryptosporidium parvum, Cyclospora, or Microsporidia. Performed at: [facility] [address] [place], [place] [id number] PhD Bernice Bower Performed By: #### 3 [id number], 32612027, 03574184, 73760118, 45187839, [id number] ####[facility] [address] [place] [address] Ambulatory Visit Summaryon 1 Ambulatory Visit Summary [...] 2% solution) fluticasone nasal (Flonase 0.05 mg/inh Soldier) furosemide (furosemide 20 mg Tab) gabapentin (gabapentin 600 mg Tab) irbesartan (irbesartan 300 mg Tab) isosorbide mononitrate latanoprost ophthalmic loperamide (loperamide 2 mg Tab) metformin (metformin 500 mg ER Tab) multivitamin with minerals (Multivitamin, Therapeutic w/ Minerals) omega-3 polyunsaturated fatty acids ([place]-3 Fish Oil) omeprazole (omeprazole 40 mg Cap-DR) [...] PM EST With: Anjali Ruby CNP Where: [facility] Invalid Interpretation Code [address] [place] [address]- \.br\ Wednesday 1:00 PM EDT \.br\ With:\.br\ Where: [facility] Auto Diffon 03-10-2023 Basophils/100 WBC (Bld) 0.4 % Normal 0.0-2.0 [facility] Comment on above: Order Comment: Order Added by Discern Expert. Performed By: #### 2 188652, 9212761, 1724018, 87367205 ####[facility] [address] [place] [address] Basophils/Leukocyt es Auto (Bld) [Pure # fraction] 0.0 E9/L Normal 0.0-0.2 [facility] Comment on above: Order Comment: Order Added by Discern Expert. Performed By: #### 2 833696, 4557003, 6873328, 69084409 ####[address] [address] Eosinophils/100 WBC (Bld) 2.4 % Normal 0.0-8.0 [facility] Comment on above: Order Comment: Order Added by Discern Expert. Performed By: #### 2 161411, 8908636, 7966878, 94580012 ####[address] [address] Eosinophils/Leukoc ytes Auto (Bld) [Pure # fraction] 0.2 E9/L Normal 0.0-0.5 [facility] Comment on above: Order Comment: Order Added by Discern Expert. Performed By: #### 2 401065, 4969789, 9797268, 86730240 ####[address] [address] Lymphocytes/100 WBC (Bld) 21.9 % Normal 14.0-50.0 [facility] Comment on above: Order Comment: Order Added by Discern Expert. Performed By: #### 2 536040, 2801277, 9090739, 16275274 ####[address] [address] Lymphocytes/Leukoc ytes Auto (Bld) [Pure # fraction] 1.8 E9/L Normal 1.0-4.0 [facility] Comment on above: Order Comment: Order Added by Discern Expert. Performed By: #### 2 591120, 5723856, 6110915, 02069951 ####[address] [address] Monocytes/100 WBC (Bld) 6.9 % Normal 4.0-14.0 [facility] Comment on above: Order Comment: Order Added by Discern Expert. Performed By: #### 2 658104, 7705701, 8067180, 39394559 ####[facility] [address] [place] [address] Monocytes/Leukocyt es Auto (Bld) [Pure # fraction] 0.6 E9/L Normal 0.2-1.0 [facility] Comment on above: Order Comment: Order Added by Discern Expert. Performed By: #### 2 024332, 0325238, 2863311, 64572660 ####[facility] [address] [place] [address] Neutrophils/100 WBC (Bld) 68.4 % Normal 36.0-75.0 [facility] Comment on above: Order Comment: Order Added by Discern Expert. Performed By: #### 2 298112, 4417728, 1224624, 58911545 ####[facility] [address] [place] [address] Neutrophils/Leukoc ytes Auto (Bld) [Pure # fraction] 5.8 E9/L Normal 2.0-7.5 [facility] Comment on above: Order Comment: Order Added by Discern Expert. Performed By: #### 2 130243, 6593249, 9812000, 57702600 ####[address] [place] [address] CBC w/ Auto Diffon 3 Erythrocyte distribution width (RBC) [Ratio] 13.9 % Normal 10.9-14.2 [facility] Comment on above: Performed By: #### 2 553738, 6097638, 4586088, 65947861 #### [facility] [address] [place] [address] Hematocrit (Bld) [Volume fraction] 43.6 % Normal 37.7-49.0 [facility] Comment on above: Performed By: #### 2 061015, 8117670, 0563212, 32799229 #### [facility] [address] [place] [address] Hemoglobin (Bld) [Mass/Vol] 14.5 g/dL Normal 13.5-17.5 [facility] Comment on above: Performed By: #### 2 730138, 6987354, 3893231, 25628608 #### [facility] [address] [place] [address] MCH (RBC) [Entitic mass] 30.4 pg Normal 27.0-34.0 [facility] Comment on above: Performed By: #### 2 250653, 1138016, 7861313, 17302907 #### [facility] [address] [place] [address] MCHC (RBC) [Mass/Vol] 33.2 g/dL Normal 31.4-36.0 [facility] Comment on above: Performed By: #### 2 014215, 9865863, 7410740, 70445551 #### [facility] [address] [place] [address] MCV (RBC) [Entitic vol] 91.7 fL Normal 80.0-100.0 [facility] Comment on above: Performed By: #### 2 054656, 0213393, 9749835, 99717585 #### [facility] [address] [place] [address] Platelet mean volume (Bld) [Entitic vol] 8.6 fL Normal 6.4-10.8 [facility] Comment on above: Performed By: #### 2 843943, 8914856, 1165217, 41910783 #### [facility] [address] [place] [address] Platelets (Bld) [#/Vol] 236.0 E9/L Normal 150.0-500.0 [facility] Comment on above: Performed By: #### 2 917523, 8196611, 4892908, 52592049 #### [facility] [address] [place] [address] RBC (Bld) [#/Vol] 4.8 E12/L Normal 4.3-5.9 [facility] Comment on above: Performed By: #### 2 363385, 4217819, 2878773, 27449550 #### [facility] [address] [place] [address] WBC corrected for nucl RBC Auto (Bld) [#/Vol] 8.4 E9/L Normal 4.0-11.0 [facility] Comment on above: Performed By: #### 2 080598, 6329689, 1457653, 95131290 #### [facility] [address] [place] [address] CDiff PCRon 03-10-2023 CDiff PCR Unable to perform te st due to consistency of stool. C. Difficile testing will only be performed on diarrheal (unformed) stool unless ileus due to C. difficile is expected. Reference: Clinical Practice Guidelines for Clostridium difficile Infection in Adults, Infection and Hospital Epidemiology September 2009, Vol 31, No 5. Normal [facility] Cdiff Specimen Acceptable Unacceptable Normal [facility] Comment on above: Performed By: #### 3 [id number], 67960526, 93228780, 03994870, 11661335, 7254009239 ####[facility] [address] [place] [address] Order Cancelled YES Normal [facility] Comment on above: Performed By: #### 3 056165641, 73123109, 30892935, 22821205, 56356696, 9661268021 ####[facility] [address] [place] [address] CHEMISTRYOrdered By: SYSTEM SYSTEM on 03-10-2023 Albumin [...] 10 mmol/L Normal 6 - 16 mEq/L FT Remisol AST [Catalytic activity/Vol] 16 [iU]/d Normal 5 - 43 Int._Unit/L FT Remisol Bilirubin [Mass/Vol] 0.4 mg/dL Normal 0.0 [...] rate/Area] 67 mL/min/1.73 m2 Normal >=59mL/min/1.73 m2 [facility] Comment on above: Interpretive Data: C hronic kidney disease could be indicated at eGFR's of less than 60 mL/min/1.73m2. Kidney failure is indicated at less than 15 mL/min/1.73m2. Globulin (S) [Mass/Vol] 3.3 g/dL Normal 1.4 - 4.0 gm/dL FT Remisol Glucose [Mass/Vol] 136 mg/dL Normal 55 - 199 mg/dL [facility] Remisol Comment on above: Interpretive Data: I f this glucose result represents a fasting glucose, interpretation should refer to the following reference range: 55-99 mg/dL Potassium [Moles/Vol] 3.9 mmol/L Normal 3.5 - 5.3 mmol/L FT Remisol Protein [Mass/Vol] 7.3 g/dL Normal 6.0 - 7.8 gm/dL [facility] Remisol Sodium [Moles/Vol] 139 mmol/L Normal 135 - 145 mmol/L FT Remisol Urea nitrogen [Mass/Vol] 20 mg/dL Normal 5 - 21 mg/dL FT Remisol Urea nitrogen/Creatinin e [Mass ratio] 18 mg/mg Normal 10 - 20 [facility] Remisol CMPon 03-10-2023 Albumin [Mass/Vol] 4.0 g/dL Normal 3.3-5.0 [facility] Comment on above: Performed By: #### 2 318286, 9303027, 7128249, 94297166 ####[facility] [address] [place] [address] Albumin/Globulin (S) [Mass conc ratio] 1.2 Normal 1.1-2.2 [facility] Comment on above: Performed By: #### 2 111550, 2300021, 1716202, 68070675 ####[facility] [address] [place] [address] ALP [Catalytic activity/Vol] 65 Int._Unit/L Normal 21-98 [facility] Comment on above: Performed By: #### 2 809759, 8488778, 1009615, 46972082 ####[address] [address] ALT No additional P-5'-P [Catalytic activity/Vol] 17 Int._Unit/L Normal 6-46 [facility] Comment on above: Performed By: #### 2 630650, 3346974, 7617101, 98240468 ####[address] [address] Anion gap [Moles/Vol] 10 mmol/L Normal 6-16 [facility] Comment on above: Performed By: #### 2 129064, 2203636, 3142950, 76834269 ####[address] [place] [address] AST [Catalytic activity/Vol] 16 Int._Unit/L Normal 5-43 [facility] Comment on above: Performed By: #### 2 853899, 3781561, 8792512, 33194157 ####[address] [place] [address] Bilirubin [Mass/Vol] 0.4 mg/dL Normal 0.0-1.1 [facility] Comment on above: Performed By: #### 2 030679, 9038138, 7748490, 93599535 ####[facility] [address] [place] [address] Calcium [Mass/Vol] 9.2 mg/dL Normal 8.9-11.1 [facility] Comment on above: Performed By: #### 2 162361, 1623173, 7191995, 27342583 ####[facility] [address] [place] [address] Chloride [Moles/Vol] 108 mmol/L Normal 101-111 [facility] Comment on above: Performed By: #### 2 925872, 6029275, 3829216, 88109097 ####[facility] [address] [place] [address] CO2 [Moles/Vol] 25 mmol/L Normal 21-31 [facility] Comment on above: Performed By: #### 2 712915, 0654540, 5458042, 06488269 ####[facility] [address] [place] [address] Creatinine [Mass/Vol] 1.1 mg/dL Normal 0.5-1.3 [facility] Comment on above: Performed By: #### 2 693067, 1538578, 0025872, 50192005 ####[facility] [address] [place] [address] Globulin (S) [Mass/Vol] 3.3 g/dL Normal 1.4-4.0 [facility] Comment on above: Performed By: #### 2 602118, 1515671, 6788493, 43443453 ####[facility] [address] [place] [address] Glucose [Mass/Vol] 136 mg/dL Normal 55-199 [facility] Comment on above: Result Comment: If t his glucose result represents a fasting glucose, interpretation should refer to the following reference range: 55-99 mg/dL Performed By: #### 2 301242, 1369035, 8750434, 47767385 ####[facility] [address] [place] [address] Potassium [Moles/Vol] 3.9 mmol/L Normal 3.5-5.3 [facility] Comment on above: Performed By: #### 2 645410, 5451295, 2338854, 35208184 ####[facility] [address] [place] [address] Protein [Mass/Vol] 7.3 g/dL Normal 6.0-7.8 [facility] Comment on above: Performed By: #### 2 225558, 4272207, 7125305, 11787231 ####[facility] [address] [place] [address] Sodium [Moles/Vol] 139 mmol/L Normal 135-145 [facility] Comment on above: Performed By: #### 2 461017, 8133287, 5906591, 24114591 ####[facility] [address] [place] [address] Urea nitrogen [Mass/Vol] 20 mg/dL Normal 5- [facility] Comment on above: Performed By: #### 2 070050, 9446690, 3470946, 99447979 ####[facility] [address] [place] [address] Urea nitrogen/Creatinin e [Mass ratio] 18 No Units Normal 10- [facility] Comment on above: Performed By: #### 2 788064, 0724797, 8371735, 50438842 ####[facility] [address] [place] [address] Consent for Treatmenton 02-15 Consent for Treatment [id number] IFF Normal [facility] Enteric Panel by PCRon 03-10 C. coli+jejuni+upsali ensis DNA MICHELLE+non-probe Ql (Stl) Not detected Normal [facility] Comment on above: Result Comment: Test ing was performed utilizing reverse referral agent (RT), polymerase chain reaction (PCR), and array [...] nulcleic acid test. Performed By: #### 3 685740840, 97158287, 78218822, 45594337, 04003702, 4162200426 ####[facility] [address] [place] [address] E. coli stx1+stx2 genes MICHELLE+non-probe Ql (Stl) Negative [facility] Comment on above: Performed By: #### 3 337628394, 81981890, 93686269, 37240647, 81817410, 0138351705 ####[facility] [address] [place] [address] Enteric Panel by PCR Negative [facility] Enteric Panel Intrl QC Pass [facility] Comment on above: Result Comment: Test ing was performed utilizing reverse referral agent (RT), polymerase chain reaction (PCR), and array [...] 1 and 2. Performed By: #### 3 341795657, 06160312, 63680150, 62759639, 86330336, 4348471555 ####[address] [place] [address] Norovirus genogroup I+II RNA MICHELLE+non-probe Ql (Stl) Not detected Normal [facility] Comment on above: Performed By: #### 3 436132810, 89851595, 13807450, 31383662, 22577169, 4760881531 ####[address] [place] [address] Rotavirus A RNA MICHELLE+non-probe Ql (Stl) Not detected Normal [facility] Comment on above: Performed By: #### 3 194731960, 97218694, 57864182, 44590819, 85056434, 6037227048 ####[address] [place] [address] S. enterica+bongori DNA MICHELLE+non-probe Ql (Stl) Not detected Normal [facility] Comment on above: Result Comment: This test result should be correlated with clinical presentations and medical history by a healthcare provider to determine its clinical significance. Performed By: #### 3 420157416, 64114015, 62846942, 18037153, 01160433, 6281663463 ####[facility] [address] [place] [address] Shigella species+EIEC invasion plasmid antigen H ipaH gene MICHELLE+non-probe Ql (Stl) Not detected Normal [facility] Comment on above: Performed By: #### 3 606547640, 60679031, 78601177, 34079890, 28082528, 8020999107 ####[address] [place] [address] V. cholerae+parahaemo lyticus+vulnificus DNA MICHELLE+non-probe Ql (Stl) Not detected Normal [facility] Comment on above: Performed By: #### 3 930569299, 33140967, 31938319, 21222811, 37210243, 0298040793 ####[facility] [address] [place] [address] Y. enterocolitica DNA MICHELLE+non-probe Ql (Stl) Not detected Normal [facility] Comment on above: Performed By: #### 3 471165179, 93162430, 94571067, 23606562, 12270291, 3467356660 ####[facility] [address] [place] [address] Fecal WBC Lactoferrinon 02-15 Fecal WBC Lactoferrin Negative Normal Negative [facility] Comment on above: Result Comment: The semi-quantitative detection of elevated levels of fecal lactoferrin is a marker for fecal leukocytes and an indication of intestinal inflammation. Performed By: #### 3 495224114, 74114670, 71786719, 36765152, 33919681, 7004900371 ####[facility] [address] [place] [address] Gastroenterology Office/Clin ic Noteon 03-10-2023 Gastroenterology Office/Clinic [...] Patient reported during most recent visit with pr 02/25/2023 that he was having RUQ pain described as sharp/achy 3-4 times a week that was worse with coughing or sneezing. He reported acid reflux was well controlled with omeprazole 40 mg daily. Patient was referred to [facility] regarding pancreatic cyst. Had discussed repeating [...] in 2017 that revealed diverticulosis and hemorrhoids. Patient brought outside records from outside facility: [facility] 03/31/2020 CT A/P revealed prominent amount of fluid in colon suggesting diarrhea, diverticulosis, Patient had previous ultrasound of RUQ 09/2019 at outside facility revealed 0.7cm pancreatic cyst and cholelithiasis. Patient reports hx. cholecystectomy in 2019. Previous labs at outside facility [address] revealed normal BUN, normal creatinine, normal LFTs, normal H&H. Outside record from [facility] from 04/01/2020 indicated patient had RUQ [...] start fiber supplementation daily. MRCP completed at [facility] 02/16/2023 showed 3 mm cystic lesion in pancreatic body. I recommended for patient to be referred to [facility] for further evaluation regarding and patient [...] Worse aft (more content not included)... Normal [facility] Comment on above: Result Comment: Elec tronically Signed By: Flori GARZA, Anjali Omalley\.br\Date and Time Signed: 03/10/23 09:20 EDT HEMATOLOGYOrdered [...] 4.8 E12/L Normal 4.3 - 5.9 E12/L [facility] HemeAutoSS WBC corrected for nucl RBC Auto (Bld) [#/Vol] 8.4 E9/L Normal 4.0 - 11.0 E9/L [facility] HemeAutoSS MICRO OTHER TESTSOrdered By: Elba Felipe on 03-10-2023 Fecal WBC Lactoferrin Negative 3 (03/10/23 12:45 PM) Normal Negative [facility] Man [facility]ero Comment on above: Interpretive Data: [...] these instructions at home: Medicines ? Take supc-mly-nmjwiyo and prescription medicines only as told by [...] your condition for any changes. ? Take ckfr-efg-evpzpdu and prescription medicines only as told by [...] provider. Document Revised: 06/21/2020 Document Reviewed: 09/11/2019 [employer] Patient Education ? 2022 [employer]. Normal [facility] eGFRon 03-10-2023 GFR/1.73 sq M.predicted among non-blacks MDRD (S/P/Bld) [Vol rate/Area] 67 mL/min/1.73 m2 Normal >=59 [facility] Comment on above: Order Comment: Order added by Discern Expert. Result Comment: Mingle Operator sergo kidney disease could be indicated at eGFR's of less than 60 mL/min/1.73m2. Kidney failure is indicated at less than 15 mL/min/1.73m2. Performed By: #### 2 242725, 1890555, 6559994, 78837000 ####[facility] [address] [place] [address] Physician Referralon 023 Physician Referral [id number] 006 [id number] IFF Normal [facility] Ambulatory Visit Summaryon 1 Ambulatory Visit [...] 2% solution) fluticasone nasal (Flonase 0.05 mg/inh Soldier) furosemide (furosemide 20 mg Tab) gabapentin (gabapentin 600 mg Tab) irbesartan (irbesartan 300 mg Tab) isosorbide mononitrate latanoprost ophthalmic loperamide (loperamide 2 mg Tab) metformin (metformin 500 mg ER Tab) multivitamin with minerals (Multivitamin, Therapeutic w/ Minerals) omega-3 polyunsaturated fatty acids ([place]-3 Fish Oil) omeprazole (omeprazole 40 mg Cap-DR) [...] PM EST With: Anjali Ruby CNP Where: [facility] Invalid Interpretation Code [address] [place] [address]- \.br\ Wednesday 1:00 PM EDT \.br\ With:\.br\ Where: [facility] Gastroenterology Office/Clin ic Noteon 02-25-2023 Gastroenterology Office/Clinic [...] Patient brought outside records from outside facility: [facility] 03/31/2020 CT A/P revealed prominent amount of fluid in colon suggesting diarrhea, diverticulosis, Patient had previous ultrasound of RUQ 09/2019 at outside facility revealed 0.7cm pancreatic cyst and cholelithiasis. Patient reports hx. cholecystectomy in 2019. Outside record from [facility] from 04/01/2020 indicated patient had RUQ [...] start fiber supplementation daily. MRCP completed at [facility] 02/16/2023 showed 3 mm cystic lesion in pancreatic body. I recommended for patient to be referred to [facility] for further evaluation regarding. Patient is [...] MRCP in 2 years. MRCP completed at [facility] 02/16/2023 showed 3 mm cystic lesion in pancreatic body. I recommended for patient to be referred to [facility] for further evaluation regarding. Family history of GI cancer? paternal grandfather with stomach cancer, cousin with p (more content not included)... Normal [facility] Comment on above: Result Comment: Elec [...] these instructions at home: Medicines ? Take kvoa-fjj-uwaytml and prescription medicines only as told by your health care provider. ? If you were prescribed an antibiotic medicine, take it as told by your health care provider. Do not stop taking the antibiotic even if you start to feel better. Eating and drinking ? Make any diet changes as told by your health care provider. ? Work with a diet and inventory management specialist (dietitian) to create an eating plan that [...] person's throa (more content not included)... 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 [facility] Comment on above: Result Comment: Elec tronically Signed By: Yajaira Dunn\.marco a\Date and Time Signed: 02/15/23 14:43 EDT Medication Consenton 023 Medication Consent [id number] D:127 [facility] Pre-Certification Formon Pre-Certification Form [id number] D:127 [facility] Consultation Noteon 02-02-20 Consultation Note [id number] :127 [facility] Consultation Noteon 01-28-20 Consultation Note [id number] D:127 [facility] Insurance Correspondenceon 0 01-19-2023 Insurance Correspondence [id number] CD:127 [facility] Ambulatory Visit Summaryon 0 01-12-2023 Ambulatory Visit Summary JEREMIE BENNETT Annabelle :1940 Visit Date:01/12/2023 Ambulatory Visit Instructions Your Diagnosis Pancreatic cyst RUQ pain Fecal urgency Dysphagia Your Care Team Attending Physician - Flori GARZA, Anjali Lyssa Primary Care Physician - Sabino Cooper [...] 2% solution) fluticasone nasal (Flonase 0.05 mg/inh Soldier) furosemide (furosemide 20 mg Tab) gabapentin (gabapentin 600 mg Tab) irbesartan (irbesartan 300 mg Tab) isosorbide mononitrate latanoprost ophthalmic loperamide (loperamide 2 mg Tab) metformin (metformin 500 mg ER Tab) multivitamin with minerals (Multivitamin, Therapeutic w/ Minerals) omega-3 polyunsaturated fatty acids ([place]-3 Fish Oil) omeprazole (omeprazole 40 mg Cap-DR) [...] EST With: Hermes CASON, Sabino Rosa Where: [facility] Invalid Interpretation Code [address] [place] [address]- \.br\ You Need to Schedule the Following Appointments\.br \ Follow Up with Anjali Ruby CNP When: Within 1 to 2 weeks\.br\ Comments:\.br\ Following EGD/Colonoscopy. \.br\ Where:\.br\ You Need to Complete the Following\.br\ CT Abdomen w/ Contrast, 01/12/23, Routine, Order for future visit, Transport Mode: Ambulatory, Reason: Other (please specify), Reason: Pancreatic cyst, No, Pancreatic cyst [facility] Gastroenterology Office/Clin ic Noteon 01-12-2023 Gastroenterology Office/Clinic [...] Patient brought outside records from outside facility: [facility] 03/31/2020 CT A/P revealed prominent amount of fluid in colon suggesting diarrhea, diverticulosis, Patient had previous ultrasound of RUQ 09/2019 at outside facility revealed 0.7cm pancreatic cyst and cholelithiasis. Patient reports hx. cholecystectomy in 2019. Outside record from [facility] from 04/01/2020 indicated patient had RUQ [...] Patient brought outside records from outside facility: [facility] 03/31/2020 CT A/P revealed prominent amount of fluid in colon suggesting diarrhea, diverticulosis, Patient had previous ultrasound of RUQ 09/2019 at outside facility revealed 0.7cm pancreatic cyst and cholelithiasis. Patient reports hx. cholecystectomy in 2019. Outside record from [facility] from 04/01/2020 indicated patient had RUQ ultrasound that revealed no acute process, fatty change in liver. Ultrasound of abdomen 12/17/2022 revealed 6 mm pancreatic cyst and radiology recommended MRI with contras (more content not included)... [facility] Comment on above: Result Comment: Elec tronically Signed By: Anjali Ruby CNP\.marco a\Date and Time Signed: 01/12/23 10:00 EDT Retail - Clinical Noteon Retail - Clinical Note [id number] D:127 Normal [facility] Physician Referralon 023 Physician Referral [id number] D:127 Normal [facility] US Abdomen, Limitedon 2022 US Abdomen, [...] Moore MD Transcribed by: SHAUNNA Technologist: MADDIE [facility] Consent for Treatmenton 08 Consent for Treatment [id number] D:127 [facility] Ambulatory Visit Summaryon 0 12-15-2022 Ambulatory Visit [...] 325 mg-50 mg-40 mg Tab) Misc Prescription ([facility] Prescription) Misc Prescription (Misc DME Prescription) albuterol (Albuterol (Eqv-ProAir HFA) 90 mcg/inh inhalation aerosol) amlodipine (amLODIPine 5 mg Tab) aspirin (Aspir 81) clopidogrel (Plavix 75 mg Tab) dorzolamide ophthalmic (dorzolamide ophthalmic 2% solution) fluticasone nasal (Flonase 0.05 mg/inh Soldier) furosemide (furosemide 20 mg Tab) gabapentin (gabapentin 600 mg Tab) irbesartan (irbesartan 300 mg Tab) isosorbide mononitrate latanoprost ophthalmic loperamide (loperamide 2 mg Tab) metformin (metformin 500 mg ER Tab) multivitamin with minerals (Multivitamin, Therapeutic w/ Minerals) omega-3 polyunsaturated fatty acids ([place]-3 Fish Oil) omeprazole (omeprazole 40 mg Cap-DR) [...] AM EST With: Sabino Cooper MD Where: [facility] Normal [address] [place] [address]- \.br\ You Need to Schedule the Following Appointments\.br \ Follow Up with Anjali Ruby CNP When: Within 1 to 2 weeks\.br\ Comments:\.br\ Following EGD/Colonoscopy. \.br\ Where:\.br\ You Need to Complete the Following\.br\ US Abdomen, Limited, 12/17/22, Routine, Order for future visit, Transport Mode: Ambulatory, Reason: Abdominal pain, Reason: RUQ pain post cholecystectomy, No, RUQ pain, pp_set_radiology _subspecialty, Not Required, [facility]\.br\ Medications\.br\ What How Much When Instructions\.br \ New polyethylene glycol 3350 with electrolytes (Plenvu oral powder for reconstitution) See instructions Prior to colonoscopy. Pickup at [facility] #[id number]\.br\ Unchanged albuterol (Albuterol (Eqv-ProAir HFA) 90 mcg/ [...] Unchanged fluticasone nasal (Flonase 0.05 mg/ inh Soldier) 1 Sprays Nasal Inhalation 2 times a [...] concerns \.br\ Unchanged omega-3 polyunsaturated fatty acids ([place]-3 Fish Oil) By Mouth Every day Contact [...] if questions or concerns \.br\ Pharmacy Information\.br\ [id number]: [address], [place] [phone]\.br\ Allergies\.br\ Adhesive Bandage (Rash)\.br\ Niaspan ER (Itching)\.br\ [...] including vitamins, herbs, eye drops, creams, and fogb-uqz-iqqzjam medicines.\.br\ ? \.br\ Any problems you or [...] ice pops.\.br\ ? \.br\ Drink only patt [facility] Consent for Procedure/Surger yon 12-15-2022 Consent for Procedure/Surgery [id number] D:127 Normal [facility] Gastroenterology Office/Clin ic Noteon 12-15-2022 Gastroenterology [...] Ordered: [place] (more content not included)... Normal [facility] Comment on above: Result Comment: Elec tronically Signed By: Flori GARZA, Anjali Omalley\.br\Date and Time Signed: 12/15/22 12:30 EDT Physician Referralon 023 Physician Referral [id number] D:127 Normal [facility] Lab Reportson 11-27-2022 Lab Reports [id number] D:127 Normal [facility] Lab Reports [id number] D:127 Normal [facility] Family Medicine Office/Clini c Noteon 11-24-2022 [...] 5.9% Last Chronic Labs: February 2022 at [facility] History of Present Illness Jeremie Bennett is an 82-year-old male who presents today for a follow-up evaluation. The patient states that he is doing better. He felt stable yesterday, but then his stomach started bothering him again. He has an appointment with a principal administrative clerk for an EGD. His endo tech, Dr. Arellano, did not make any changes [...] with voice recognition artificial intelligence software, specifically BookTour, InVisioneer and or [employer] Now. Substitutions may have occurred due to the inherent limitations of voice recognition and artificial intelligence software. Documentation services were performed after patient or guardian consented to allow [employer] to record this visit. OSVALDO education specialist and provider reviewed before signing. OSVALDO: [...] awareness Vi (more content not included)... Normal [facility] Comment on above: Result Comment: Elec tronically Signed By: Sabino Cooper MD\.br\Date and Time Signed: 11/24/22 12:47 EDT\.br\Electronically Co-Signed By: Tory Sifuentes.marco a\Date and Time Co-Signed: 11/23/22 14:01 EDT CHEMISTRYOrdered By: Yash Shah on 11-23-2022 Albumin DL <= 20 mg/L (U) [Mass/Vol] microgram/mL Normal 0.0 - 19.0 mcg/mL [facility] Remisol Albumin Elph (U) [Mass fraction] mg/dL Invalid Interpretation Code [facility] Remisol Creatinine (U) [Mass/Vol] 15.9 mg/dL Invalid Interpretation Code [facility] Chem S U Prot/Creat Ratio [facility] Invalid Interpretation Code 0.00 - 200.00 [facility] Chem S Comment on above: Result Comment: Unab le to calculate due to Protein being less than analyzer reportable range. Orders Onlyon 11-23-2022 Orders Only [id number] [address] P 1940 M Date Provider Department Center 11/23/2022 JOSE R MCGHEE MC CARD [facility] Family History Problem Relation Age of Onset Coronary artery disease Mother Kidney disease Mother Heart failure Mother Family Status - Relation Status Age at Mother Normal [facility] U Microalbon 11-23-2022 Albumin DL <= 20 mg/L (U) [Mass/Vol] mg/dL Normal 0.0-19.0 [facility] Comment on above: Performed By: #### 1 [id number], [id number] #### [facility] [address] [place] [address] U Protein/Creat Ratioon 11-14 Albumin Elph (U) [Mass fraction] <6.0 Invalid Interpretation Code [facility] Comment on above: Result Comment: The reference range and other method performance specifications have not been established for this test; results should be integrated into the clinical context for interpretation. Performed By: #### 1 [id number], [id number] #### [facility] [address] [place] [address] Creatinine (U) [Mass/Vol] 15.9 mg/dL Invalid Interpretation Code [facility] Comment on above: Result Comment: The reference range and other method performance specifications have not been established for this test; results should be integrated into the clinical context for interpretation. Performed By: #### 1 [id number], [id number] #### [facility] [address] [place] [address] U Prot/Creat Ratio [facility] Invalid Interpretation Code .00-200.00 [facility] Comment on above: Result Comment: Unab le to calculate due to Protein being less than analyzer reportable range. Performed By: #### 1 [id number], [id number] #### [facility] [address] [place] [address] Consultation Noteon 11-23-19 Consultation Note [id number] D:127 Normal [facility] Family Medicine Office/Clini c Noteon 11-12-2022 [...] bpm SpO2 : 94 % Galileo Tucker - 11/04/2022 14:59 EDT Chief Complaint : Subsequent [facility] Visit Patient Counseled : Nutrition, Physical activity, Elevated BMI Blood Pressure Position : Sitting O2 Sat Resting/Exertion Alpha : Resting Pain Present : Yes actual or suspected pain Numeric Rating Pain Scale : 6 Primary Pain Location : Abdomen Numeric Rating Pain Score : 6 Galileo Tucker R - 11/04/2022 14:00 EDT Patient Preferred Method of [...] 15:01:07 EDT Procedure Dt/Tm: 05/20/2020 ; Location: [facility] ; Provider: Oksana Saini MD; Anesthesia [...] ; Comments: 08/24/2022 8:08 EDT - 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 Normal [facility] Comment on above: Result Comment: Elec tronically Signed By: Sabino Cooper MD\.br\Date and Time Signed: 11/12/22 12:59 EDT\.br\Electronically Co-Signed By: Galileo Tucker\.br\Date and Time Co-Signed: 11/04/22 16:37 EDT 36on 11-11-2022 36 Please refill Normal [facility] Office Visiton 11-10-2022 Follow-up visit [id number] [address] P 1940 Date Provider Department Center 11/10/2022 Cordelia-JOSE R ALEXANDER BH [facility] Family History Problem Relation Age of Onset Coronary artery disease Mother Kidney disease Mother Heart failure Mother Family Status - Relation Status Age at Mother Level of Service:37830 [place] OFFICE/OUTPATIENT ESTABLISHED MOD MDM 30-39 MIN Normal [facility] PROGRESSon 11-10-2022 SARS-CoV-2 (COVID-19) RNA MICHELLE+probe [...] other systems reviewed and are negative. Normal [facility] Physician Referralon 023 Physician Referral [id number] CD:127 Normal [facility] Screenson 11-05-2022 Screens [id number] D:127 Normal [facility] Ambulatory Visit Summaryon 0 11-04-2022 Ambulatory [...] 2% solution) fluticasone nasal (Flonase 0.05 mg/inh Soldier) furosemide (furosemide 20 mg Tab) gabapentin (gabapentin 600 mg Tab) irbesartan (irbesartan 300 mg Tab) isosorbide mononitrate latanoprost ophthalmic loperamide (loperamide 2 mg Tab) metformin (metformin 500 mg ER Tab) multivitamin with minerals (Multivitamin, Therapeutic w/ Minerals) omega-3 polyunsaturated fatty acids ([place]-3 Fish Oil) omeprazole (omeprazole 40 mg Cap-DR) [...] EDT With: Hermes CASON, Sabino Rosa Where: [place] [id number]- \.br\ Medications\.br\ What How Much When Instructions\.br [...] Unchanged fluticasone nasal (Flonase 0.05 mg/ inh Soldier) 1 Sprays Nasal Inhalation 2 times a [...] 2 times a day\.br\ Unchanged Misc Prescription ([facility] Prescription) See instructions one touch ultra test strips test sugars once a day \.br\ Unchanged Misc Prescription ([facility] Prescription) See instructions one touch ultra lancets Use to test sugars once a day \.br\ Unchanged multivitamin with minerals (Multivitamin, Therapeutic w/ Minerals) By Mouth Every day\.br\ Unchanged omega-3 polyunsaturated fatty acids ([place]-3 Fish Oil) By Mouth Every day\.br\ Unchanged [...] ? \.br\ Place frequently used items in tmod-vn-yjxou places. Lower the shelves around your home [...] way.\.br\ ? \.br\ Do not use floor tamazight or wax that makes floors slippery. If [...] and support your feet. Wear shoes gio [facility] Patient Educationon 11-05-19 23 Patient Education Caregiving [...] night-lights. ? Place frequently used items in swdw-yb-vshym places. Lower the shelves around your home [...] the way. ? Do not use floor tamazight or wax that makes floors slippery. If [...] include working with a physical therapist or net trainer to improve your strength, balance, and endurance. Where to find more information ? Centers for Disease Control and Prevention, [place]: www.cdc.gov ? National [place] on Aging: www.barak.nih.gov Contact a health care [...] health ca (more content not included)... Normal [facility] Family Medicine Office/Rae Garciaon 11-03-2022 Family Medicine Office/Clinic Note Chief Complaint [...] He states he has not told his endo tech is Dr. Arellano about his fatigue. He [...] the patient to reach out to his endo tech for possible stress test to make sure [...] with voice recognition artificial intelligence software, specifically BookTour, InVisioneer and or Hospital[employer] Now. Substitutions may have occurred due to the inherent limitations of voice recognition and artificial intelligence software. ATTESTATION: Documentation services were performed after patient or guardian consented to allow [employer] to record this visit. OSVALDO education specialist and provider reviewed before signing. OSVALDO: [...] 1 drop(s), OPTH, BID Flonase 0.05 mg/inh Soldier, 1 spray(s), Nasal, BID furosemide 20 mg Tab, 20 mg= 1 tab(s), Oral, Daily gabapentin 600 mg Tab, 600 mg, Oral, TID irbesartan 300 mg Tab, 300 mg= 1 tab (more content not included)... Normal [facility] Comment on above: Result Comment: Elec tronically Signed By: Sabino Cooper MD\.br\Date and Time Signed: 11/03/22 11:45 EDT\.br\Electronically Co-Signed By: Rocky Krause\.br\Date and Time Co-Signed: 11/02/22 15:41 EDT RAD - MISCon 11-03-2022 [facility] [id number] D:127 [facility] Ambulatory Visit Summaryon 0 11-02-2022 Ambulatory Visit [...] 2% solution) fluticasone nasal (Flonase 0.05 mg/inh Soldier) furosemide (furosemide 20 mg Tab) gabapentin (gabapentin [...] Wednesday 2:00 PM EDT With: Where: [facility] [place] [id number]- \.br\ Medications\.br\ What How Much When Instructions\.br [...] Unchanged fluticasone nasal (Flonase 0.05 mg/ inh Soldier) 1 Sprays Nasal Inhalation 2 times a [...] without sensory awareness\.br\ Vitamin D deficiency\.br\ \.br\ [facility] Consultation Noteon 10-29-19 Consultation Note [id number] D:127 Normal [facility] Family Medicine Office/Clini c Noteon 10-06-2022 [...] no questions/concerns: upset stomach and diarrhea Rxed [id number] twice a day from the ER History [...] Ruby Montano to record this visit. OSVALDO education specialist and provider reviewed before signing. OSVALDO: [...] 1 drop(s), OPTH, BID Flonase 0.05 mg/inh Soldier, 1 spray(s), Nasal, BID fluticasone propionate, 50 [...] metformin 500 mg ER Tab, Oral, BID [facility] Prescription, See Instructions [facility] Prescription, See Instructions Multivitamin, Therapeutic w/ [...] Never Smoke (more content not included)... Normal [facility] Comment on above: Result Comment: Elec [...] (fluticasone propionate) fluticasone nasal (Flonase 0.05 mg/inh Soldier) furosemide (furosemide 20 mg Tab) gabapentin (gabapentin [...] EDT With: Hermes CASON, Sabino Rosa Where: [facility] Normal [address] [place] [id number]- \.br\ Medications\.br\ What How Much When Instructions\.br \ New albuterol (Albuterol (Eqv-ProAir HFA) 90 mcg/ inh inhalation aerosol) 2 Puffs Inhalation Every 6 hours or cheapest alternative Pickup at [facility] ([facility] )\.br\ Unchanged amlodipine (amLODIPine 5 [...] Unchanged fluticasone nasal (Flonase 0.05 mg/ inh Soldier) 1 Sprays Nasal Inhalation 2 times a [...] if questions or concerns \.br\ Pharmacy Information\.br\ [facility] ([facility] ): [address] [place], [place] [id number] [phone]\.br\ Allergies\.br\ Adhesive Bandage (Rash)\.br\ Niaspan ER (Itching)\.br\ [...] without sensory awareness\.br\ Vitamin D deficiency\.br\ \.br\ [facility] CBC AUTO DIFFon 09-29-2022 BASO # 0.1 103/ul Normal 0.0-0.1 [facility] Comment on above: Performed By: #### C BC #### [facility] [address] [place] [address] [address] Ramsey Sanchez Basophils/100 WBC (Bld) 0.7 % Normal 0.2-2.0 [facility] Comment on above: Performed By: #### C BC #### [facility] [address] [place] [address] [address] Ramsey Sanchez EO # 0.2 103/ul Normal 0.0-0.7 [facility] Comment on above: Performed By: #### C BC #### [facility] [address] [place] [address] [address] Ramsey Sanchez Eosinophils/100 WBC (Bld) 1.5 % Normal 0.9-7.0 [facility] Comment on above: Performed By: #### C BC #### [facility] [address] [place] [address] [address] Ramsey Sanchez Erythrocyte distribution width (RBC) [Ratio] 13.6 % Normal 11.0-15.0 [facility] Comment on above: Performed By: #### C BC #### [facility] [address] [place] [address] [address] Ramsey Sanchez Hematocrit (Bld) [Volume fraction] 43.5 % Normal 42.0-54.0 [facility] Comment on above: Performed By: #### C BC #### [facility] [address] [place] [address] Dr. Ramsey Sanchez Hemoglobin (Bld) [Mass/Vol] 13.9 g/dL Critically low 14.0-18.0 [facility] Comment on above: Performed By: #### C BC #### [facility] [address] [place] [address] Dr. Ramsey Sanchez IG # 0.29 10e3/ul Critically high 0.00-0.03 [facility] Comment on above: Performed By: #### C BC #### [facility] [address] [place] [address] Dr. Ramsey Sanchez IG % 2.9 % Critically high 0.0-0.5 [facility] Comment on above: Performed By: #### C BC #### [facility] [address] [place] [address] Dr. Ramsey Sanchez LYMPH # 2.1 103/ul Normal 1.2-3.8 [facility] Comment on above: Performed By: #### C BC #### [facility] [address] [place] [address] Dr. Ramsey Sanchez Lymphocytes/100 WBC (Bld) 20.8 % Normal 20.5-60.0 [facility] Comment on above: Performed By: #### C BC #### [facility] [address] [place] [address] Dr. Ramsey Sanchez MANUAL DIFF REQ NO Normal [facility] Comment on above: Performed By: #### C BC #### [facility] [address] [place] [address] Dr. Ramsey Sanchez MCH (RBC) [Entitic mass] 29.6 pg Normal 25.9-34.0 [facility] Comment on above: Performed By: #### C BC #### [facility] [address] [place] [address] Dr. Ramsey Sanchez MCHC (RBC) [Mass/Vol] 32.0 g/dL Normal 29.9-35.2 [facility] Comment on above: Performed By: #### C BC #### [facility] [address] [place] [address] [address] Ramsey Sanchez MCV (RBC) [Entitic vol] 92.6 fL Normal 80.0-94.0 [facility] Comment on above: Performed By: #### C BC #### [facility] [address] [place] [address] [address] Ramsey Sanchez MONO # 0.8 103/ul Normal 0.3-0.8 [facility] Comment on above: Performed By: #### C BC #### [facility] [address] [place] [address] [address] Ramsey Sanchez Monocytes/100 WBC (Bld) 8.3 % Normal 1.7-12.0 [facility] Comment on above: Performed By: #### C BC #### [facility] [address] [place] [address] Dr. Ramsey Sanchez NEUT # 6.5 103/ul Normal 1.4-6.5 [facility] Comment on above: Performed By: #### C BC #### [facility] [address] [address] [address] Ramsey Sanchez Neutrophils/100 WBC (Bld) 65.8 % Normal 43.0-75.0 [facility] Comment on above: Performed By: #### C BC #### [facility] [address] [address] [address] Ramsey Sanchez Platelet mean volume (Bld) [Entitic vol] 11.1 fL Normal 9.5-13.5 [facility] Comment on above: Performed By: #### C BC #### [facility] [address] [address] [address] Ramsey Sanchez PLT 198 103/ul Normal 150-450 [facility] Comment on above: Performed By: #### C BC #### [facility] [address] [address] [address] Ramsey Sanchez RBC 4.70 106/ul Normal 4.70-6.10 [facility] Comment on above: Performed By: #### C BC #### [facility] [address] [place] [address] Dr. Ramsey Sanchez WBC 9.9 103/ul Normal 4.0-11.0 [facility] Comment on above: Performed By: #### C BC #### [facility] [address] [place] [address] Dr. Ramsey Sanchez ER URINE PROFILEon 3 Bilirubin Ql (U) Negative Normal NEGATIVE [facility] Comment on above: Performed By: #### E RUR #### [facility] [address] [place] [address] Dr. Ramsey Sanchez Clarity (U) CLEAR Normal CLEAR [facility] Comment on above: Performed By: #### E RUR #### [facility] [address] [place] [address] Dr. Ramsey Sanchez Color (U) YELLOW Normal YELLOW [facility] Comment on above: Performed By: #### E RUR #### [facility] [address] [place] [address] Dr. Ramsey IVORY A micrscopic examination will be performed if indicated. Normal [facility] Comment on above: Performed By: #### E RUR #### [facility] [address] [place] [address] Dr. Ramsey Sanchez Glucose Ql (U) Negative Normal NEGATIVE [facility] Comment on above: Performed By: #### E RUR #### [facility] [address] [place] [address] Dr. Ramsey Sanchez Hemoglobin Ql (U) Negative Normal NEGATIVE [facility] Comment on above: Performed By: #### E RUR #### [facility] [address] [place] [address] Dr. Ramsey Sanchez Ketones Ql (U) Negative Normal NEGATIVE [facility] Comment on above: Performed By: #### E RUR #### [facility] [address] [place] [address] Dr. Ramsey Sanchez LEUKOCYTES Negative Normal NEGATIVE [facility] Comment on above: Performed By: #### E RUR #### [facility] [address] [place] [address] Dr. Ramsey Sanchez Nitrite Ql (U) Negative Normal NEGATIVE [facility] Comment on above: Performed By: #### E RUR #### [facility] [address] [place] [address] Dr. Ramsey Sanchez pH (U) 5.5 [pH] Normal 5-9 [facility] Comment on above: Performed By: #### E RUR #### [facility] [address] [place] [address] Dr. Ramsey Sanchez SPEC GRAVITY 1.020 Normal 1.005-<=1.025 [facility] Comment on above: Performed By: #### E RUR #### [facility] [address] [place] [address] Dr. Ramsey Sanchez UA PROTEIN Negative Normal NEGATIVE/ TRACE [facility] Comment on above: Performed By: #### E RUR #### [facility] [address] [place] [address] Dr. Ramsey Sanchez UR MICRO IND NOT INDICATED Normal [facility] Comment on above: Performed By: #### E RUR #### [facility] [address] [place] [address] Dr. Ramsey Sanchez Urobilinogen Qn (U) 0.2 {Leatha'U}/dL Normal 0.2 - 1.0 [facility] Comment on above: Performed By: #### E RUR #### [facility] [address] [place] [address] Dr. Ramsey Sanchez LACTATE/LACTIC ACIDon 2022 Lactate [Moles/Vol] 1.7 mmol/L Normal 0.4-2.0 [facility] Comment on above: Performed By: #### L ACT #### [facility] [address] [place] [address] Dr. Ramsey Sanchez PROF 14(COMP METB)on 023 Albumin [Mass/Vol] 3.1 g/dL Critically low 3.4-5.0 [facility] Comment on above: Performed By: #### C MP, HSTROPN #### [facility] [address] [address] [address] Ramsey Sanchez Albumin/Globulin [Mass ratio] 0.8 {ratio} Normal [facility] Comment on above: Performed By: #### C MP, HSTROPN #### [facility] [address] [address] [address] Ramsey Sanchez ALP [Catalytic activity/Vol] 73 U/L Normal 46-116 [facility] Comment on above: Performed By: #### C MP, HSTROPN #### [facility] [address] [place] [address] Dr. Ramsey Sanchez ALT [Catalytic activity/Vol] 22 U/L Normal 16-63 [facility] Comment on above: Performed By: #### C MP, HSTROPN #### [facility] [address] [place] [address] Dr. Ramsey Sanchez Anion gap [Moles/Vol] 13.5 mmol/L Normal [facility] Comment on above: Performed By: #### C MP, HSTROPN #### [facility] [address] [place] [address] Dr. Ramsey Sanchez AST [Catalytic activity/Vol] 26 U/L Normal 15-37 [facility] Comment on above: Performed By: #### C MP, HSTROPN #### [facility] [address] [place] [address] Dr. Ramsey Sanchez Bilirubin [Mass/Vol] 0.4 mg/dL Normal 0.2-1.0 [facility] Comment on above: Performed By: #### C MP, HSTROPN #### [facility] [address] [place] [address] Dr. Ramsey Sanchez Calcium [Mass/Vol] 8.4 mg/dL Critically low 8.5-10.1 [facility] Comment on above: Performed By: #### C MP, HSTROPN #### [facility] [address] [address] [address] Ramsey Sanchez Chloride [Moles/Vol] 107 mmol/L Normal 98-107 [facility] Comment on above: Performed By: #### C MP, HSTROPN #### [facility] [address] [address] [address] Ramsey Sanchez CO2 [Moles/Vol] 26.1 mmol/L Normal 21.0-32.0 [facility] Comment on above: Performed By: #### C MP, HSTROPN #### [facility] [address] [address] [address] Ramsey Sanchez Creatinine [Mass/Vol] 0.94 mg/dL Normal 0.70-1.30 [facility] Comment on above: Performed By: #### C MP, HSTROPN #### [facility] [address] [address] [address] Ramsey Sanchez EGFR-AF LIBYAN >60 Normal >=60 [facility] Comment on above: Performed By: #### C MP, HSTROPN #### [facility] [address] [address] [address] Ramsey Sanchez EGFR-NON AF LIBYAN >60 Normal >=60 [facility] Comment on above: Performed By: #### C MP, HSTROPN #### [facility] [address] [address] [address] Ramsey Sanchez Globulin (S) [Mass/Vol] 3.7 g/dL Normal [facility] Comment on above: Performed By: #### C MP, HSTROPN #### [facility] [address] [address] [address] Ramsey Sanchez Glucose [Mass/Vol] 118 mg/dL Critically high 74-106 T [facility] Comment on above: Performed By: #### C MP, HSTROPN #### [facility] [address] [address] [address] Ramsey Snachez Potassium [Moles/Vol] 3.6 mmol/L Normal 3.5-5.1 [facility] Comment on above: Performed By: #### C MP, HSTROPN #### [facility] [address] [address] [address] Ramsey Sanchez Protein [Mass/Vol] 6.8 g/dL Normal 6.4-8.2 [facility] Comment on above: Performed By: #### C LISANDRO, HSTROPN #### [facility] [address] [address] [address] Ramsey Sanchez Sodium [Moles/Vol] 143 mmol/L Normal 136-145 [facility] Comment on above: Performed By: #### C MP, HSTROPN #### [facility] [address] [address] [address] Ramsey Sanchez Urea nitrogen [Mass/Vol] 19.0 mg/dL Critically high 7.0-18.0 [facility] Comment on above: Performed By: #### C LISANDRO, HSTROPN #### [facility] [address] [address] [address] Ramsey Sanchez Urea nitrogen/Creatinin e [Mass ratio] 20.2 mg/mg Normal [facility] Comment on above: Performed By: #### C LISANDRO, HSTROPN #### [facility] [address] [place] [address] Dr. Ramsey Sanchez TROPONIN, HIGH SENSITIVITYon 09-29-2022 HSTROP 9.8 pg/mL Normal 4.0-76.1 [facility] Comment on above: Result Comment: CUT- OFF POINTS HAVE BEEN ESTABLISHED BASED ON THE FOURTH UNIVERSAL DEFINITIONS OF MYOCARDIAL INFARCTION. THE UPPER REFERENCE LIMIT (URL) OF TROPONIN, DEFINED THE 99TH PERCENTILE OF cTnI DISTRIBUTION IN A REFERENCE POPULATION, HAS BEEN CONFIRMED THE DECISION THRESHOLD FOR HI DIAGNOSIS. Performed By: #### C LISANDRO, HSTROPN #### [facility] [address] [place] [address] Dr. Ramsey Sanchez XR CHEST 1 Von [...] hardware and overlying objects out of the zisap-do-ctiq. Electronically authenticated by: ALANNA CARLOS Date: 2022-09-29 16:37 Normal [facility] ED Note-Physicianon 09-28-19 ED Note-Physician Basic Information Time Seen: Braden [...] Cooper In 3 days 09/25/2022 EDT [address] [id number] Business (2) Additional Instructions: Patient Education COVID-19 Attestation Patient seen and evaluated by the physician floor covering printer assistant. Attending physician was present in the emergency department and supervised care. This visit was performed by both the physician and an APC. I performed all aspects of the MDM as documented. This report was transcribed using voice recognition software. Every effort was made to ensure accuracy, however, inadvertently computerized referral agent mistakes may be present. Appropriate healthcare PPE [...] 1 drop(s), OPTH, BID Flonase 0.05 mg/inh Soldier, 1 spray(s), Nasal, BID fluticasone propionate, 50 mcg, Inhalation, BID furosemide 20 mg Tab, 20 mg= 1 tab(s), Oral, Daily gabapentin 600 mg Tab, 600 mg, Oral, TID irbesart (more content not included)... Normal [facility] Comment on above: Result Comment: Elec tronically Signed By: Braden Stafford PA-C\.br\Date and Time Signed: 09/22/22 18:15 EDT\.br\Electronically Co-Signed By: Gordy Sánchez DO\.br\Date and Time Co-Signed: 09/27/22 07:11 EDT BNPon 09-25-2022 Natriuretic peptide B (Bld) [Mass/Vol] 720.0 pg/mL Normal <=1,800.0 [facility] Comment on above: Performed By: #### C XSTOOL #### [facility] [address] [address] [address] Ramsey Sanchez CARDIAC RAFI ADMITon 023 CK [Catalytic activity/Vol] 198 U/L Normal 39-308 [facility] Comment on above: Performed By: #### C XSTOOL #### [facility] [address] [address] [address] Ramsey Sanchez CK.MB [Mass/Vol] 2.62 ng/mL Normal <=3.60 [facility] Comment on above: Performed By: #### C XSTOOL #### [facility] [address] [place] [address] Dr. Ramsey Sanchez HSTROP 8.8 pg/mL Normal 4.0-76.1 [facility] Comment on above: Result Comment: CUT- OFF POINTS HAVE BEEN ESTABLISHED BASED ON THE FOURTH UNIVERSAL DEFINITIONS OF MYOCARDIAL INFARCTION. THE UPPER REFERENCE LIMIT (URL) OF TROPONIN, DEFINED THE 99TH PERCENTILE OF cTnI DISTRIBUTION IN A REFERENCE POPULATION, HAS BEEN CONFIRMED THE DECISION THRESHOLD FOR HI DIAGNOSIS. Performed By: #### C XSTOOL #### [facility] [address] [place] [address] Dr. Ramsey Sanchez MARILYN 69 ng/mL Normal 16-96 [facility] Comment on above: Performed By: #### C XSTOOL #### [facility] [address] [place] [address] Dr. Ramsey Sanchez CBC AUTO DIFFon 09-25-2022 BASO # 0.0 103/ul Normal 0.0-0.1 [facility] Comment on above: Performed By: #### C BC #### [facility] [address] [place] [address] Dr. Ramsey Sanchez Basophils/100 WBC (Bld) 0.2 % Normal 0.2-2.0 [facility] Comment on above: Performed By: #### C BC #### [facility] [address] [place] [address] Dr. Ramsey Sanchez EO # 0.0 103/ul Normal 0.0-0.7 [facility] Comment on above: Performed By: #### C BC #### [facility] [address] [place] [address] Dr. Ramsey Sanchez Eosinophils/100 WBC (Bld) 0.1 % Critically low 0.9-7.0 [facility] Comment on above: Performed By: #### C BC #### [facility] [address] [place] [address] Dr. Ramsey Sanchez Erythrocyte distribution width (RBC) [Ratio] 14.0 % Normal 11.0-15.0 [facility] Comment on above: Performed By: #### C BC #### [facility] [address] [address] [address] Ramsey Sanchez Hematocrit (Bld) [Volume fraction] 45.4 % Normal 42.0-54.0 [facility] Comment on above: Performed By: #### C BC #### [facility] [address] [address] [address] Ramsey Sanchez Hemoglobin (Bld) [Mass/Vol] 14.4 g/dL Normal 14.0-18.0 [facility] Comment on above: Performed By: #### C BC #### [facility] [address] [address] [address] Ramsey Sanchez IG # 0.08 10e3/ul Critically high 0.00-0.03 [facility] Comment on above: Performed By: #### C BC #### [facility] [address] [place] [address] Dr. Ramsey Sanchez IG % 0.9 % Critically high 0.0-0.5 [facility] Comment on above: Performed By: #### C BC #### [facility] [address] [place] [address] Dr. Ramsey Sanchez LYMPH # 1.6 103/ul Normal 1.2-3.8 [facility] Comment on above: Performed By: #### C BC #### [facility] [address] [place] [address] Dr. Ramsey Sanchez Lymphocytes/100 WBC (Bld) 17.9 % Critically low 20.5-60.0 [facility] Comment on above: Performed By: #### C BC #### [facility] [address] [place] [address] Dr. Ramsey Sanchez MANUAL DIFF REQ NO Normal [facility] Comment on above: Performed By: #### C BC #### [facility] [address] [place] [address] Dr. Ramsey Sanchez MCH (RBC) [Entitic mass] 29.8 pg Normal 25.9-34.0 [facility] Comment on above: Performed By: #### C BC #### [facility] [address] [place] [address] Dr. Ramsey Sanchez MCHC (RBC) [Mass/Vol] 31.7 g/dL Normal 29.9-35.2 [facility] Comment on above: Performed By: #### C BC #### [facility] [address] [place] [address] Dr. Ramsey Sanchez MCV (RBC) [Entitic vol] 94.0 fL Normal 80.0-94.0 [facility] Comment on above: Performed By: #### C BC #### [facility] [address] [place] [address] Dr. Ramsey Sanchez MONO # 0.9 103/ul Critically high 0.3-0.8 [facility] Comment on above: Performed By: #### C BC #### [facility] [address] [place] [address] Dr. Ramsey Sanchez Monocytes/100 WBC (Bld) 9.6 % Normal 1.7-12.0 [facility] Comment on above: Performed By: #### C BC #### [facility] [address] [place] [address] Dr. Ramsey Sanchez NEUT # 6.3 103/ul Normal 1.4-6.5 [facility] Comment on above: Performed By: #### C BC #### [facility] [address] [place] [address] Dr. Ramsey Sanchez Neutrophils/100 WBC (Bld) 71.3 % Normal 43.0-75.0 [facility] Comment on above: Performed By: #### C BC #### [facility] [address] [place] [address] Dr. Ramsey Sanchez Platelet mean volume (Bld) [Entitic vol] 11.0 fL Normal 9.5-13.5 [facility] Comment on above: Performed By: #### C BC #### [facility] [address] [place] [address] Dr. Ramsey Sanchez PLT 203 103/ul Normal 150-450 [facility] Comment on above: Performed By: #### C BC #### [facility] [address] [place] [address] Dr. Ramsey Sanchez RBC 4.83 106/ul Normal 4.70-6.10 [facility] Comment on above: Performed By: #### C BC #### [facility] [address] [place] [address] Dr. Ramsey Sanchez WBC 8.9 103/ul Normal 4.0-11.0 [facility] Comment on above: Performed By: #### C BC #### [facility] [address] [place] [address] Dr. Ramsey Sanchez LACTATE/LACTIC ACIDon 2022 Lactate [Moles/Vol] 1.0 mmol/L Normal 0.4-2.0 [facility] Comment on above: Performed By: #### C BC #### [facility] [address] [place] [address] Dr. Ramsey Sanchez PROF 14(COMP METB)on 023 Albumin [Mass/Vol] 3.7 g/dL Normal 3.4-5.0 [facility] Comment on above: Performed By: #### C XSTOOL #### [facility] [address] [place] [address] Dr. Ramsey Sanchez Albumin/Globulin [Mass ratio] 0.9 {ratio} Normal [facility] Comment on above: Performed By: #### C XSTOOL #### [facility] [address] [place] [address] Dr. Ramsey Sanchez ALP [Catalytic activity/Vol] 68 U/L Normal 46-116 [facility] Comment on above: Performed By: #### C XSTOOL #### [facility] [address] [place] [address] Dr. Ramsey Sanchez ALT [Catalytic activity/Vol] 23 U/L Normal 16-63 [facility] Comment on above: Performed By: #### C XSTOOL #### [facility] [address] [place] [address] Dr. Ramsey Sanchez Anion gap [Moles/Vol] 12.6 mmol/L Normal [facility] Comment on above: Performed By: #### C XSTOOL #### [facility] [address] [address] [address] Ramsey Sanchez AST [Catalytic activity/Vol] 21 U/L Normal 15-37 [facility] Comment on above: Performed By: #### C XSTOOL #### [facility] [address] [address] [address] Ramsey Sanchez Bilirubin [Mass/Vol] 0.3 mg/dL Normal 0.2-1.0 [facility] Comment on above: Performed By: #### C XSTOOL #### [facility] [address] [place] [address] Dr. Ramsey Sanchez Calcium [Mass/Vol] 8.8 mg/dL Normal 8.5-10.1 [facility] Comment on above: Performed By: #### C XSTOOL #### [facility] [address] [place] [address] Dr. Ramsey Sanchez Chloride [Moles/Vol] 104 mmol/L Normal 98-107 [facility] Comment on above: Performed By: #### C XSTOOL #### [facility] [address] [place] [address] Dr. Ramsey Sanchez CO2 [Moles/Vol] 26.7 mmol/L Normal 21.0-32.0 [facility] Comment on above: Performed By: #### C XSTOOL #### [facility] [address] [place] [address] Dr. Ramsey Sanchez Creatinine [Mass/Vol] 1.27 mg/dL Normal 0.70-1.30 [facility] Comment on above: Performed By: #### C XSTOOL #### [facility] [address] [place] [address] Dr. Ramsey Sanchez EGFR-AF LIBYAN >60 Normal >=60 [facility] Comment on above: Performed By: #### C XSTOOL #### [facility] [address] [place] [address] Dr. Ramsey Sanchez EGFR-NON AF LIBYAN 54 mL/min/1.73m2 Critically low >=60 [facility] Comment on above: Performed By: #### C XSTOOL #### [facility] [address] [address] [address] Ramsey Sanchez Globulin (S) [Mass/Vol] 3.9 g/dL Normal [facility] Comment on above: Performed By: #### C XSTOOL #### [facility] [address] [address] [address] Ramsey Sancehz Glucose [Mass/Vol] 114 mg/dL Critically high 74-106 T [facility] Comment on above: Performed By: #### C XSTOOL #### [facility] [address] [address] [address] Ramsey Sanchez Potassium [Moles/Vol] 4.3 mmol/L Normal 3.5-5.1 [facility] Comment on above: Performed By: #### C XSTOOL #### [facility] [address] [place] [address] Dr. Ramsey Sanchez Protein [Mass/Vol] 7.6 g/dL Normal 6.4-8.2 [facility] Comment on above: Performed By: #### C XSTOOL #### [facility] [address] [place] [address] Dr. Ramsey Sanchez Sodium [Moles/Vol] 139 mmol/L Normal 136-145 [facility] Comment on above: Performed By: #### C XSTOOL #### [facility] [address] [place] [address] Dr. Ramsey Sanchez Urea nitrogen [Mass/Vol] 19.0 mg/dL Critically high 7.0-18.0 [facility] Comment on above: Performed By: #### C XSTOOL #### [facility] [address] [place] [address] Dr. Ramsey Sanchez Urea nitrogen/Creatinin e [Mass ratio] 15.0 mg/mg Normal [facility] Comment on above: Performed By: #### C XSTOOL #### [facility] [address] [place] [address] Dr. Ramsey Sanchez XR CHEST 1 Von 09-25-2022 XR CHEST 1 V XR CHEST 1 V 09/25/19 10:15 PM EDT CLINICAL INDICATION: Chest pain [...] by: TRACY HIGHTOWER Date: 2022-09-24 23:29 Normal [facility] Discharge Instructionson Discharge Instructions [id number] D:127 Normal [facility] XR Chest 2 Viewson 3 XR [...] mGy = na DAP = na Normal [facility] COVID + FLU Quick Testingon 09-22-2022 SARS-CoV-2 (COVID-19) RNA MICHELLE+probe Ql (Unsp spec) Positive [employer] Other COVID + FLU Quick Testing Negative [employer] [facility] [employer] Other Consent for Treatmenton Consent for Treatment [id number] D:127 Normal [facility] ED Clinical Summaryon 2022 ED Clinical Summary [address] [address] ED Clinical Summary Person Information Name: JEREMIE BENNETT Kalee/[facility] Age: 81 Years : 1940 Sex: Male Language: Latvian PCP: Sabino Cooper MD Marital Status: Visit [...] 09/22/2022 18:15:08 09/22/2022 18:15:08 09/22/2022 18:15:08 ADDRESS: [address] [place] [phone] PHYS DOC NOTES: MEDICAL INFORMATION: Prescriptions Given: [...] a day. fluticasone nasal (Flonase 0.05 mg/inh Soldier) 1 Sprays Nasal Inhalation 2 times a [...] Mouth 2 times a day. Misc Prescription ([facility] Prescription) one touch ultra test strips test sugars once a day. Misc Prescription ([facility] Prescription) one touch ultra lancets Use [...] COVID-19 Follow up: With: Address: When: Sabino Cooper [address] [place] [address] [employer] ([employer] In 3 days 09/25/2022 DIAGNOSIS: COVID-19 Normal [facility] ED Patient Summaryon 023 ED Patient Summary (Inserted Image. Lisset ble to display) [address] [address] Patient Discharge Instructions Person Information Name: JEREMIE BENNETT Age: 81 Years Arrival Date: 09/22/2022 16:21:40 Discharge Diagnosis: COVID-19 Primary Care Physician: Sabino Cooper MD Provider Information Primary Provider: Gordy Sánchez DO [facility] Worker:Braden Stafford PA-C The exam and treatment you received in the Emergency Department were for an urgent problem and are not intended as complete care. It is important that you follow up with a doctor, nurse practitioner, or physician?s floor covering printer assistant for ongoing care. If your symptoms [...] Follow-up Instructions: With: Address: When: Sabino Cooper [address] [place] [address] Business (2) In 3 days 09/25/2022 In the event that this physician does not participate in your insurance network, please consult with your insurance company to find a nearby participating provider. Patient Education Materials: COVID-19 A MESSAGE TO ALL PATIENTS REGARDING OPIOIDS PRESCRIPTION OPIOIDS: WHAT YOU NEED TO KNOW Prescription opioids can be used to help relieve mqjlrvgf-rh-szltdv pain and are often prescribed following a [...] be struggling with addiction, tell your health zoo caretaker and ask for guidance or call [facility]?S National Helpline at 3-735-754-DMSN. z Source: [place] Department of Health and Human Serv (more content not included)... Normal [facility] Transfer Inon 09-16-2022 Transfer In [id number] D:127 Normal [facility] Formson 09-14-2022 Forms [id number] D:127 [facility] Ambulatory Visit Summaryon 0 08-24-2022 Ambulatory Visit [...] propionate) fluticasone nasal (fluticasone 0.05 mg/inh Nasal Soldier) furosemide (furosemide 20 mg Tab) gabapentin (gabapentin [...] Follow-Up Appointments Wednesday 9:00 AM EDT With: Sabino Cooper MD Where: [facility] Medicine [place] Normal [facility] Family Medicine Office/Clini c Noteon 08-24-2022 Family Medicine Office/Clinic Note Chief Complaint establish care, refills HPI Staff establish care Establish Care: History: DM, GERD, Hypercholesterolemia, heart Last provider: Dr London Any recent labs: none Health Maintenance UTD: Colonoscopy: 6-7 years ago PSA: Dr gailcia follows no longer has a prostate Covid: [...] ultra soft lancets these both go to [facility] History of Present Illness Jeremie Bennett is [...] after patient or guardian consented to allow [employer] to record this visit. OSVALDO education specialist and provider reviewed before signing. OSVALDO: Leandra Dejuan. Follow-up No qualifying data available Problem List/Past [...] qualifying da (more content not included)... Normal [facility] Comment on above: Result Comment: Elec tronically Signed By: Sabino Cooper MD\.br\Date and Time Signed: 08/24/22 14:42 EDT\.br\Electronically Co-Signed By: Leandra Zaidi\.br\Date and Time Co-Signed: 08/24/22 11:11 EDT Medication Consenton 023 Medication Consent [id number] D:127 Normal [facility] MR ankle RT wo conon 023 MR ankle RT wo con [facility] [place] [address] [place] [address] MRI Report Signed Patient: Jeremie Bennett MR#: [id number] 812 : 1940 Acct:[id number] Age/Sex: 81 / M ADM Date: 08/12/22 Loc: Room: Type: [facility] Attending Dr: Alanna Hardy DPM MS Copies to: Alanna Hardy DPM, Ordering Provider: Alanna Hardy DPM, MS Date of Service: 08/12/22 MR/MR ankle RT wo con: M7.22, [id number] MR ankle RT wo con 08/12/2022 7:28 [...] Rafi Gordon M.D.08/12/2022 1:15 PM Dictation Location: [place] [address] Transcribed By: [facility] 08/12/22 1315 Dictated By: Rafi Gordon II, MD 08/12/22 1302 Signed By: 08/12/22 1315 [facility] MR cervical spine wo conon 0 08-12-2022 MR cervical spine wo [facility] [place] [address] [place] [address] MRI Report Signed Patient: Jeremie Bennett MR#: [id number] 812 : 1940 Acct:[id number] Age/Sex: 81 / M ADM Date: 08/12/22 Loc: MR Room: Type: [facility] Attending Dr: Missy Westfall PA-C Copies to: [...] Rafi Gordon M.D.08/12/2022 1:02 PM Dictation Location: [place] [address] Transcribed By: [facility] 08/12/22 1302 Dictated By: Rafi Gordon II, MD 08/12/22 1255 Signed By: 08/12/22 1302 Normal [facility] XR pre/post mri xrayon 08-12 XR pre/post mri xray [facility] [place] [address] [place] [address] XRay Report Signed Patient: Jeremie Bennett MR#: [id number] 812 : 1940 Acct:[id number] Age/Sex: 81 / M ADM Date: 08/12/22 Loc: Room: Type: [facility] Attending Dr: Alanna Hardy DPM, MS Copies to: Alanna Hardy DPM, MS Ordering Provider: Alanna Hardy DPM, MS Date of Service: 08/12/22 XR/XR pre/post mri xray: M7.22, [id number] XR pre/post mri xray 08/12/2022 7:28 AM [...] Rafi Gordon M.D.08/12/2022 1:17 PM Dictation Location: [place] [address] Transcribed By: [facility] 08/12/22 1317 Dictated By: Rafi Gordon II, MD 08/12/22 1315 Signed By: 08/12/22 1317 Normal [facility] POINT OF CARE GLUCOSEon 03-2 Glucose [Mass/Vol] 146 mg/dL Critically high 74-106 [facility] Comment on above: Performed By: #### C XSTOOL #### [facility] [address] [place] [address] Dr. Ramsey Sanchez US ARTERY UP EXT BILon 04-16 US [...] ERWIN FALCON Date: 2022-04-16 17:21 Normal [facility] LACTOFERRIN FECAL QUANTon Lactoferrin, Fecal, Quant. 1.43 ug/mL(g) Normal 0.00-7.24 [facility] Comment on above: Result Comment: . [...] (IBS). Performed By: #### C XSTOOL #### [facility] [address] [place] [address] Dr. Ramsey Sanchez CBC AUTO DIFFon 03-10-2022 BASO # 0.1 103/ul Normal 0.0-0.1 [facility] Comment on above: Performed By: #### C BC #### [facility] [address] [place] [address] Dr. Ramsey Sanchez Basophils/100 WBC (Bld) 0.9 % Normal 0.2-2.0 [facility] Comment on above: Performed By: #### C BC #### [facility] [address] [place] [address] Dr. Ramsey Sanchez EO # 0.3 103/ul Normal 0.0-0.7 [facility] Comment on above: Performed By: #### C BC #### [facility] [address] [place] [address] Dr. Ramsey Sanchez Eosinophils/100 WBC (Bld) 2.6 % Normal 0.9-7.0 [facility] Comment on above: Performed By: #### C BC #### [facility] [address] [place] [address] Dr. Ramsey Sanchez Erythrocyte distribution width (RBC) [Ratio] 13.2 % Normal 11.0-15.0 [facility] Comment on above: Performed By: #### C BC #### [facility] [address] [place] [address] Dr. Ramsey Sanchez Hematocrit (Bld) [Volume fraction] 46.1 % Normal 42.0-54.0 [facility] Comment on above: Performed By: #### C BC #### [facility] [address] [place] [address] Dr. Ramsey Sanchez Hemoglobin (Bld) [Mass/Vol] 14.5 g/dL Normal 14.0-18.0 [facility] Comment on above: Performed By: #### C BC #### [facility] [address] [place] [address] Dr. Ramsey Sanchez IG # 0.15 10e3/ul Critically high 0.00-0.03 [facility] Comment on above: Performed By: #### C BC #### [facility] [address] [place] [address] Dr. Ramsey Sanchez IG % 1.3 % Critically high 0.0-0.5 [facility] Comment on above: Performed By: #### C BC #### [facility] [address] [place] [address] Dr. Ramsey Sanchez LYMPH # 2.7 103/ul Normal 1.2-3.8 [facility] Comment on above: Performed By: #### C BC #### [facility] [address] [place] [address] Dr. Ramsey Sanchez Lymphocytes/100 WBC (Bld) 23.0 % Normal 20.5-60.0 [facility] Comment on above: Performed By: #### C BC #### [facility] [address] [place] [address] Dr. Ramsey Sanchez MANUAL DIFF REQ NO Normal [facility] Comment on above: Performed By: #### C BC #### [facility] [address] [place] [address] Dr. Ramsey Sanchez MCH (RBC) [Entitic mass] 31.0 pg Normal 25.9-34.0 [facility] Comment on above: Performed By: #### C BC #### [facility] [address] [place] [address] Dr. Ramsey Sanchez MCHC (RBC) [Mass/Vol] 31.5 g/dL Normal 29.9-35.2 [facility] Comment on above: Performed By: #### C BC #### [facility] [address] [place] [address] Dr. Ramsey Sanchez MCV (RBC) [Entitic vol] 98.5 fL Critically high 80.0-94.0 [facility] Comment on above: Performed By: #### C BC #### [facility] [address] [place] [address] Dr. Ramsey Sanchez MONO # 0.9 103/ul Critically high 0.3-0.8 [facility] Comment on above: Performed By: #### C BC #### [facility] [address] [place] [address] Dr. Ramsey Sanchez Monocytes/100 WBC (Bld) 7.4 % Normal 1.7-12.0 [facility] Comment on above: Performed By: #### C BC #### [facility] [address] [place] [address] Dr. Ramsey Sanchez NEUT # 7.6 103/ul Critically high 1.4-6.5 [facility] Comment on above: Performed By: #### C BC #### [facility] [address] [place] [address] Dr. Ramsey Sanchez Neutrophils/100 WBC (Bld) 64.8 % Normal 43.0-75.0 [facility] Comment on above: Performed By: #### C BC #### [facility] [address] [place] [address] Dr. Ramsey Sanchez Platelet mean volume (Bld) [Entitic vol] 11.5 fL Normal 9.5-13.5 [facility] Comment on above: Performed By: #### C BC #### [facility] [address] [place] [address] Dr. Ramsey Sanchez PLT 243 103/ul Normal 150-450 [facility] Comment on above: Performed By: #### C BC #### [facility] [address] [place] [address] Dr. Ramsey Sanchez RBC 4.68 106/ul Critically low 4.70-6.10 [facility] Comment on above: Performed By: #### C BC #### [facility] [address] [place] [address] Dr. Ramsey Sanchez WBC 11.7 103/ul Critically high 4.0-11.0 [facility] Comment on above: Performed By: #### C BC #### [facility] [address] [place] [address] Dr. Ramsey Sanchez GLYCOHEMOGLOBIN A1Con 2021 ADA RECOMMENDATION SEE BELOW Normal [facility] Comment on above: Result Comment: ADA RECOMMENDED LIMIT 4.0 - 6.0 ADA THERAPEUTIC TARGET < 7.0 ACTION SUGGESTED > 7.0 Performed By: #### A 1C #### [facility] [address] [place] [address] Dr. Ramsey Sanchez Glucose [Mass/Vol] 123 mg/dL Normal [facility] Comment on above: Performed By: #### A 1C #### [facility] [address] [place] [address] Dr. Ramsey Sanchez HbA1c (Bld) [Mass fraction] 5.9 % Normal 4.5-6.2 [facility] Comment on above: Performed By: #### A 1C #### [facility] [address] [place] [address] [address] Ramsey Sanchez LIPID PROFILEon 03-10-2022 CHOL-HDL RATIO NORM SEE BELOW Normal [facility] Comment on above: Result Comment: 3.3 - 4.4 LOW RISK 4.4 - 7.1 AVERAGE RISK 7.1 - 11.0 MODERATE RISK >11.0 HIGH RISK Performed By: #### C BC #### [facility] [address] [place] [address] [address] Ramsey Sanchez Cholesterol [Mass/Vol] 121 mg/dL Normal <=200 [facility] Comment on above: Performed By: #### C BC #### [facility] [address] [place] [address] [address] Ramsey Sanchez Cholesterol in HDL [Mass/Vol] 30 mg/dL Critically low 40-60 [facility] Comment on above: Performed By: #### C BC #### [facility] [address] [place] [address] [address] Ramsey Sanchez Cholesterol in LDL [Mass/Vol] 47.6 mg/dL Normal [facility] Comment on above: Performed By: #### C BC #### [facility] [address] [place], [place] [address] Dr. Ramsey Sanchez Cholesterol.total/ Cholesterol in HDL [Mass ratio] 4.0 {ratio} Normal [facility] Comment on above: Performed By: #### C BC #### [facility] [address] [place], [place] [address] Dr. Ramsey Sanchez HDL NORMAL > or = 60 mg/dl - LO W CARDIOVASCULAR RISK <40 mg/dl - HIGH CARDIOVASCULAR RISK Normal [facility] Comment on above: Performed By: #### C BC #### [facility] [address] [place] [id number] Ramsey Sanchez LDL CALC NORMAL SEE BELOW Normal [facility] Comment on above: Result Comment: <100 mg/dl OPTIMAL 100 - 129 mg/dl NEAR OR ABOVE OPTIMAL 130 - 159 mg/dl BORDERLINE HIGH 160 - 189 mg/dl HIGH >190 mg/dl VERY HIGH Performed By: #### C BC #### [facility] [address] [place] [address] Dr. Ramsey Sanchez Triglyceride [Mass/Vol] 217 mg/dL Critically high <=150 [facility] Comment on above: Performed By: #### C BC #### [facility] [address] [place] [address] Dr. Ramsey Sanchez VLDL CALC 43.4 mg/dL Normal [facility] Comment on above: Performed By: #### C BC #### [facility] [address] [place] [address] Dr. Ramsey Sanchez LIVER PROFILEon 03-10-2022 Albumin [Mass/Vol] 3.9 g/dL Normal 3.4-5.0 [facility] Comment on above: Performed By: #### C BC #### [facility] [address] [place] [address] Dr. Ramsey Sanchez Albumin/Globulin [Mass ratio] 1.1 {ratio} Normal [facility] Comment on above: Performed By: #### C BC #### [facility] [address] [place] [address] Dr. Ramsey Sanchze ALP [Catalytic activity/Vol] 75 U/L Normal 46-116 [facility] Comment on above: Performed By: #### C BC #### [facility] [address] [place] [address] Dr. Ramsey Sanchez ALT [Catalytic activity/Vol] 21 U/L Normal 16-63 [facility] Comment on above: Performed By: #### C BC #### [facility] [address] [place] [address] Dr. Ramsey Sanchez AST [Catalytic activity/Vol] 17 U/L Normal 15-37 [facility] Comment on above: Performed By: #### C BC #### [facility] [address] [place] [address] Dr. Ramsey Sanchez BILI, CONJUGATED 0.1 mg/dL Normal 0.0-0.2 [facility] Comment on above: Performed By: #### C BC #### [facility] [address] [place] [address] [address] Ramsey Sanchez Bilirubin [Mass/Vol] 0.4 mg/dL Normal 0.2-1.0 [facility] Comment on above: Performed By: #### C BC #### [facility] [address] [place] [address] [address] Ramsey Sanchez Globulin (S) [Mass/Vol] 3.5 g/dL Normal [facility] Comment on above: Performed By: #### C BC #### [facility] [address] [place] [address] [address] Ramsey Sanchez Protein [Mass/Vol] 7.4 g/dL Normal 6.4-8.2 [facility] Comment on above: Performed By: #### C BC #### [facility] [address] [place] [address] Dr. Ramsey Sanchez MICROALBUMIN, RAND URon 02-15 mALB <1.3 Normal <=30.0 [facility] Comment on above: Performed By: #### M ALBR #### [facility] [address] [place] [address] [address] Ramsey Sanchez PROF CHEM 8 (BAS METB)on Anion gap [Moles/Vol] 12.6 mmol/L Normal [facility] Comment on above: Performed By: #### C BC #### [facility] [address] [place] [address] Dr. Ramsey Sanchez Calcium [Mass/Vol] 8.9 mg/dL Normal 8.5-10.1 [facility] Comment on above: Performed By: #### C BC #### [facility] [address] [place] [address] [address] Ramsey Sanchez Chloride [Moles/Vol] 103 mmol/L Normal 98-107 [facility] Comment on above: Performed By: #### C BC #### [facility] [address] [place] [address] Dr. Ramsey Sanchez CO2 [Moles/Vol] 28.5 mmol/L Normal 21.0-32.0 [facility] Comment on above: Performed By: #### C BC #### [facility] [address] [place] [address] [address] Ramsey Sanchez Creatinine [Mass/Vol] 0.89 mg/dL Normal 0.70-1.30 [facility] Comment on above: Performed By: #### C BC #### [facility] [address] [place] [address] [address] Ramsey Sanchez EGFR-AF LIBYAN >60 Normal >=60 [facility] Comment on above: Performed By: #### C BC #### [facility] [address] [place] [address] [address] Ramsey Sanchez EGFR-NON AF LIBYAN >60 Normal >=60 [facility] Comment on above: Performed By: #### C BC #### [facility] [address] [place] [address] [address] Ramsey Sanchez Glucose [Mass/Vol] 102 mg/dL Normal 74-106 [facility] Comment on above: Performed By: #### C BC #### [facility] [address] [place] [address] Dr. Ramsey Sanchez Potassium [Moles/Vol] 4.1 mmol/L Normal 3.5-5.1 [facility] Comment on above: Performed By: #### C BC #### [facility] [address] [place] [address] Dr. Ramsey Sanchez Sodium [Moles/Vol] 140 mmol/L Normal 136-145 [facility] Comment on above: Performed By: #### C BC #### [facility] [address] [place] [address] Dr. Ramsey Sanchez Urea nitrogen [Mass/Vol] 16.0 mg/dL Normal 7.0-18.0 [facility] Comment on above: Performed By: #### C BC #### [facility] [address] [place] [address] Dr. Ramsey Sanchez Urea nitrogen/Creatinin e [Mass ratio] 18.0 mg/mg Normal [facility] Comment on above: Performed By: #### C BC #### [facility] [address] [place] [address] [address] Ramsey Sanchez STOOL CULTUREon 03-10-2022 Campylobacter Culture Final report Normal [facility] Comment on above: Performed By: #### C XSTOOL #### [facility] [address] [place] [address] Dr. Ramsey Sanchez E coli Shiga Toxin EIA Negative Normal Negative [facility] Comment on above: Performed By: #### C XSTOOL #### [facility] [address] [place] [address] [address] Ramsey Sanchez Result 1 Comment Normal [facility] Comment on above: Result Comment: No S almonella or Shigella recovered. Performed By: #### C XSTOOL #### [facility] [address] [place] [address] Dr. Ramsey Sanchez Result Comment: No C ampylobacter species isolated. Salmonella/Shigell a Screen Final report Normal [facility] Comment on above: Performed By: #### C XSTOOL #### [facility] [address] [place] [address] Dr. Ramsey Sanchez VITAMIN D 25 OHon 03-10-2022 VIT D 25-OH 40.2 ng/mL Normal [facility] Comment on above: Performed By: #### V ITAD #### [facility] [address] [place] [address] Dr. Ramsey Sanchez VIT D RANGES SEE BELOW Normal [facility] Comment on above: Result Comment: <20 ng/mL Vit D deficient 20 - <30 ng/mL Vit D insufficient 30 - 100 ng/mL Vit D sufficient >100 ng/mL Potential Toxicity Performed By: #### V ITAD #### [facility] [address] [place] [address] Dr. Ramsey Sanchez POC GLUCOSE LABon 08-31-2019 Glucose [Mass/Vol] 120 mg/dL High 70-100 [facility] Comment on above: Performed By: #### 8 5499 #### [facility] [address] [place] [address], [facility] Glucose [Mass/Vol] 114 mg/dL High 70-100 [facility] Comment on above: Performed By: #### 8 5499 #### [facility] [address] [place] [address], [facility] Glucose [Mass/Vol] 136 mg/dL High 70-100 [facility] Comment on above: Performed By: #### 8 5499 #### [facility] [address] [place] [address], [facility] BASIC METABOLIC PANELon 08-15 Calcium [Mass/Vol] 9.3 mg/dL Normal 8.6-10.3 [facility] Comment on above: Performed By: #### 0 0071 #### [facility] [address] [place] [address], [facility] Chloride [Moles/Vol] 103 mmol/L Normal 98-107 [facility] Comment on above: Performed By: #### 0 0071 #### [facility] [address] [place] [address], [place] CO2 [Moles/Vol] 27 mmol/L Normal 21-31 [facility] Comment on above: Performed By: #### 0 0071 #### [facility] [address] [place] [address], [place] Creatinine [Mass/Vol] 1.04 mg/dL Normal 0.70-1.30 [facility] Comment on above: Performed By: #### 0 0071 #### [facility] [address] [place] [address], [place] GFR/1.73 sq M predicted among blacks MDRD (S/P/Bld) [Vol rate/Area] mL/min/{1.73_m2} Normal >60 [facility] Comment on above: Result Comment: Calc ulation may not be valid for patients over 70 years Performed By: #### 0 0071 #### [facility] [address] [place] [address], [place] GFR/1.73 sq M predicted among non-blacks MDRD (S/P/Bld) [Vol rate/Area] mL/min/{1.73_m2} Normal >60 [facility] Comment on above: Result Comment: Calc ulation may not be valid for patients over 70 years Performed By: #### 0 0071 #### [facility] [address] [place] [address], [facility] Glucose [Mass/Vol] 128 mg/dL High 70-100 [facility] Comment on above: Performed By: #### 0 0071 #### [facility] [address] [place] [address], [facility] Potassium [Moles/Vol] 4.2 mmol/L Normal 3.5-5.1 [facility] Comment on above: Performed By: #### 0 0071 #### [facility] [address] [place] [address], [facility] Sodium [Moles/Vol] 139 mmol/L Normal 136-145 [facility] Comment on above: Performed By: #### 0 0071 #### [facility] [address] [place] [address], [facility] Urea nitrogen [Mass/Vol] 20 mg/dL Normal 7-25 [facility] Comment on above: Performed By: #### 0 0071 #### [facility] [address] [place] [address], [facility] CBC COMPLETE BLOOD COUNTon 0 - Erythrocyte distribution width (RBC) [Ratio] 13.9 % Normal 11.5-15.0 [facility] Comment on above: Performed By: #### 5 0608 #### [facility] [address] [place] [address], [facility] Hematocrit (Bld) [Volume fraction] 44.9 % Normal 39.0-50.0 [facility] Comment on above: Performed By: #### 5 0608 #### [facility] [address] Hemoglobin (Bld) [Mass/Vol] 14.5 g/dL Normal 13.0-17.0 [facility] Comment on above: Performed By: #### 5 0608 #### [facility] [address] [facility] [place] [address], [facility] MCH (RBC) [Entitic mass] 30.7 pg Normal 27.0-33.0 [facility] Comment on above: Performed By: #### 5 0608 #### [facility] [address] [facility] [place] [address], [facility] MCHC (RBC) [Mass/Vol] 32.3 g/dL Normal 32.0-35.0 [facility] Comment on above: Performed By: #### 5 0608 #### [facility] [address] [place] [address], [facility] MCV (RBC) [Entitic vol] 95.1 fL Normal 82.0-98.0 [facility] Comment on above: Performed By: #### 5 0608 #### [facility] [address] [place] [address], [facility] Nucleated RBC/100 WBC (Bld) [Ratio] 0 % Normal 0-0 [facility] Comment on above: Performed By: #### 5 0608 #### [facility] [address] [facility] [place] [address], [facility] PLAT CNT 238 10*3/uL Normal 150-400 [facility] Comment on above: Performed By: #### 5 0608 #### [facility] [address] [facility] [place] [address], [facility] RBC (Bld) [#/Vol] 4.72 10*6/uL Normal 4.20-5.70 [facility] Comment on above: Performed By: #### 5 0608 #### [facility] [address] [facility] [place] [address], [place] WBC (Bld) [#/Vol] 12.83 10*3/uL High 4.00-10.60 [facility] Comment on above: Performed By: #### 5 0608 #### [facility] [address] Cardiovascular Lab Reporton 08-30-2019 Cardiovascular Lab Report [facility] [place] Patient Name: Jeremie Bennett [facility] MR #: [id number] Physician: Margaret Arellano, Department of M.D. Medicine Service Date: 08/30/2019 Division of Birthdate: 1940 Cardiology Room #: 3AB [id number] Adult Cardiovascular Services [facility] [address] [facility]. [place] [address] Cardiovascular Laboratory Report FINAL IMPRESSIONS: 1. 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 2. 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 3. 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 4. Mbbq-mh-kzpwcwyv disease of the left anterior descending coronary [...] Follow up with Dr. Arellano in the [place] office in the next 2 to 4 [...] left common femoral artery was obtained. A 6-[place]izen [place] 11 cm sheath was inserted without difficulty. Limited femoral angiography was performed. Bilateral selective coronary angiography was performed using JL4 and JR4 catheters. After reviewing the images, it was elected to proceed with an interventional procedure. A 6-[place]izen [place] XB 3.5 guide catheter was advanced over [...] conclude the procedure. Attempts to deploy a 6-Citizen [place] MynxGrip closure device were unsuccessful. Therefore, manual [...] Arellano M.D. Date Trans: 08/30/2019 05:00 P/emmanuelle [id number] cc: Sabino Cooper MD [address] [address] Normal [facility] [facility] POC GLUCOSE LABon 08-30-2019 Glucose [Mass/Vol] 172 mg/dL High 70-100 [facility] Comment on above: Performed By: #### [id number] #### [facility] [address] [place] [address], [facility] Glucose [Mass/Vol] 138 mg/dL High 70-100 [facility] Comment on above: Performed By: #### [id number] #### [facility] [address] Vital Signs Date Time Vital Sign Value Performing Clinician Facility 05-31-2023 13:30-0500 Body height 167.64 cm Gisele Brunson Other [facility] Other 05-31-2023 13:30-0500 Body mass index (BMI) [Ratio] 27.6 kg/m2 Gisele Brunson Other [facility] Other 05-31-2023 13:30-0500 Body weight 77.57 kg Gisele Brunson Other [facility] Other 05-31-2023 13:30-0500 Diastolic blood pressure 55 mm[Hg] Gisele Brunson Other [facility] Other 05-31-2023 13:30-0500 SaO2% (BldA) [Mass fraction] 94 % Gisele Brunson Other [facility] Other 05-31-2023 13:30-0500 Systolic blood pressure 104 mm[Hg] Gisele Brunson Other [facility] Other 05-25-2023 12:21-0500 Blood Pressure Location Anjali Ruby [facility] 05-25-2023 12:21-0500 Diastolic blood pressure 65 mm[Hg] Anjali Ruby [facility] 05-25-2023 12:21-0500 Heart rate 88 /min Anjali Ruby [facility] 05-25-2023 12:21-0500 Respiratory rate 16 /min Anjali Ruby [facility] 05-25-2023 12:21-0500 Systolic blood pressure 113 mm[Hg] Anjali Ruby [facility] 04-01-2023 13:15-0500 Body temperature 97.11 [degF] Vaishali Pringle MD Work Phone: [facility] 04-01-2023 13:15-0500 Body weight 75.75 kg Vaishali Pringle MD Work Phone: [facility] 04-01-2023 13:15-0500 Diastolic blood pressure 66 mm[Hg] Vaishali Pringle MD Work Phone: [facility] 04-01-2023 13:15-0500 Heart rate 70 /min Vaishali Pringle MD Work Phone: [facility] 04-01-2023 13:15-0500 SaO2% (BldA) [Mass fraction] 97 % Vaishali Pringle MD Work Phone: [facility] 04-01-2023 13:15-0500 Systolic blood pressure 109 mm[Hg] Vaishali Pringle MD Work Phone: [facility] 03-10-2023 08:53-0400 Blood Pressure Location Anjali Ruby [facility] 03-10-2023 08:53-0400 Body temperature 97.16 [degF] Anjali Ruby [facility] 03-10-2023 08:53-0400 Diastolic blood pressure 72 mm[Hg] Anjali Ruby [facility] 03-10-2023 08:53-0400 Heart rate 63 /min Anjali Ruby [facility] 03-10-2023 08:53-0400 Systolic blood pressure 117 mm[Hg] Anjali Ruby [facility] 02-25-2023 13:27-0400 Blood Pressure Location Anjali Ruby [facility] 02-25-2023 13:27-0400 Body temperature 98.06 [degF] Anjali Ruby [facility] 02-25-2023 13:27-0400 Diastolic blood pressure 75 mm[Hg] Anjali Ruby [facility] 02-25-2023 13:27-0400 Heart rate 85 /min Anjali Ruby [facility] 02-25-2023 13:27-0400 Respiratory rate 16 /min Anjali Ruby [facility] 02-25-2023 13:27-0400 Systolic blood pressure 122 mm[Hg] Anjali Ruby [facility] 01-29-2023 10:15-0400 Body height 167.64 cm Gisele Brunson Other [facility] Other 01-29-2023 10:15-0400 Body mass index (BMI) [Ratio] 28.24 kg/m2 Gisele Brunson Other [facility] Other 01-29-2023 10:15-0400 Body weight 79.38 kg Gisele Brunson Other [facility] Other 01-29-2023 10:15-0400 Diastolic blood pressure 75 mm[Hg] Gisele Brunson Other [facility] Other 01-29-2023 10:15-0400 SaO2% (BldA) [Mass fraction] 95 % Gisele Brunson Other [facility] Other 01-29-2023 10:15-0400 Systolic blood pressure 118 mm[Hg] Gisele Brunson Other [facility] Other 01-12-2023 09:22-0400 Blood Pressure Location Anjali Ruby [facility] 01-12-2023 09:22-0400 Body temperature 96.98 [degF] Anjali Ruby [facility] 01-12-2023 09:22-0400 Diastolic blood pressure 68 mm[Hg] Anjali Ruby [facility] 01-12-2023 09:22-0400 Heart rate 69 /min Anjali Ruby [facility] 01-12-2023 09:22-0400 Systolic blood pressure 109 mm[Hg] Anjali Ruby [facility] 10-13-2022 09:45-0400 Body height 167.64 cm Gisele Brunson Other [facility] Other 10-13-2022 09:45-0400 Body mass index (BMI) [Ratio] 27.92 kg/m2 Gisele Brunson Other [facility] Other 10-13-2022 09:45-0400 Body weight 78.47 kg Gisele Brunson Other [facility] Other 10-13-2022 09:45-0400 Diastolic blood pressure 70 mm[Hg] Gisele Brunson Other [facility] Other 10-13-2022 09:45-0400 SaO2% (BldA) [Mass fraction] 95 % Gisele Brunson Other [facility] Other 10-13-2022 09:45-0400 Systolic blood pressure 116 mm[Hg] Gisele Brunson Other [facility] Other 09-22-2022 18:14-0400 Body temperature 99.86 [degF] Gordy Sánchez [facility] 09-22-2022 16:28-0400 Body temperature 101.3 [degF] Gordy Sánchez [facility] 09-22-2022 16:28-0400 Diastolic blood pressure 61 mm[Hg] Gordy Sánchez [facility] 09-22-2022 16:28-0400 Heart rate 79 /min Gordy Sánchez [facility] 09-22-2022 16:28-0400 Respiratory rate 17 /min Gordy Sánchez [facility] 09-22-2022 16:28-0400 SaO2% (BldA) [Mass fraction] 93 % Gordy Sánchez [facility] 09-22-2022 16:28-0400 Systolic blood pressure 111 mm[Hg] Gordy Sánchez [facility] 09-22-2022 14:10-0400 Body height 167.64 cm Griselda Pennington Other [employer] [facility] [employer] Other 09-22-2022 14:10-0400 Body mass index (BMI) [Ratio] 29.7 kg/m2 Griselda Pennington Other [facility] Other 09-22-2022 14:10-0400 Body temperature 100 [degF] Griselda Pennington Other [facility] Other 09-22-2022 14:10-0400 Body weight 83.46 kg Griselda Pennington Other [facility] Other 09-22-2022 14:10-0400 Respiratory rate 18 /min Griselda Pennington Other [facility] Other 09-22-2022 14:10-0400 SaO2% (BldA) [Mass fraction] 93 % Griselda Pennington Other [facility] Other 07-29-2022 10:15-0400 Body height 167.64 cm Erwin Salazar Other [facility] Other 07-29-2022 10:15-0400 Body mass index (BMI) [Ratio] 30.02 kg/m2 Erwin Salazar Other [facility] Other 07-29-2022 10:15-0400 Body weight 84.37 kg Erwin Salazar Other [facility] Other 07-29-2022 10:15-0400 Diastolic blood pressure 65 mm[Hg] Erwin Salazar Other [facility] Other 07-29-2022 10:15-0400 SaO2% (BldA) [Mass fraction] 94 % Erwin Salazar Other [facility] Other 07-29-2022 10:15-0400 Systolic blood pressure 102 mm[Hg] Erwin Salazar Other [facility] Other 11-29-2021 10:25-0400 Body height 167.64 cm Leti Garcia Other [facility] Other 11-29-2021 10:25-0400 Body temperature 96.9 [degF] Leti Garcia Other [facility] Other 11-29-2021 10:25-0400 Respiratory rate 18 /min Leti Garcia Other [facility] Other 11-29-2021 10:25-0400 SaO2% (BldA) [Mass fraction] 93 % Leti Garcia Other [facility] Other Encounters Encounter Date Encounter Type Care Provider Facility Start: 06-14-2023 End: 06-15-2023 ambulatory Inez Castanoeddie Bautistapaty Facility[facility] Start: 05-31-2023 End: 05-31-2023 ambulatory Gisele [place] Facility:[facility] Start: 05-31-2023 [facility] Start: 05-31-2023 End: 05-31-2023 ambulatory MD Sabino Cooper Work Phone: [facility] Work Phone: Start: 05-31-2023 End: 05-31-2023 Patient encounter procedure MD Sabino Cooper Work Phone: [facility] Work Phone: Start: 05-31-2023 End: 06-01-2023 ambulatory Sabino Cooper Facility:[facility] Jasmin castano Start: 05-25-2023 End: 05-26-2023 ambulatory Anjali Ruby Facility:[facility] Start: 05-25-2023 End: 05-25-2023 Patient encounter procedure Anjali Ruby [facility] Start: 05-25-2023 End: 05-25-2023 ambulatory [facility] Start: 04-15-2023 End: 04-16-2023 ambulatory Gordy Powers Facility:[facility] Start: 04-14-2023 End: 04-14-2023 ambulatory [facility] Start: 04-05-2023 Telephone encounter Vaishali orr MD Work Phone: General Surgery Comment on above: Received Outside Med ical Records Start: 04-01-2023 End: 04-01-2023 ambulatory VAISHALI PRINGLE Facility:[facility] Start: 04-01-2023 End: 04-01-2023 Patient encounter procedure Vaishali Pringle MD Work Phone: General Surgery Comment on above: IPMN (intraductal pa pillary mucinous neoplasm) (Primary Dx) Start: 03-10-2023 End: 03-11-2023 ambulatory Anjali Ruby Facility:[facility] Start: 03-10-2023 End: 03-11-2023 ambulatory [facility] Start: 03-10-2023 End: 03-10-2023 Patient encounter procedure Anjali A Flori [facility] Start: 03-10-2023 End: 03-10-2023 Patient encounter procedure Anjali A Flori [facility] Start: 02-25-2023 End: 02-26-2023 ambulatory [facility] Start: 02-25-2023 End: 02-25-2023 Patient encounter procedure Anjali A Flori [facility] Start: 02-16-2023 End: 02-16-2023 ambulatory Sabino Cooper Facility:[facility] Start: 02-16-2023 End: 02-16-2023 ambulatory MD Sabino Cooper Work Phone: [facility] Work Phone: Start: 02-16-2023 End: 02-16-2023 Patient encounter procedure MD Sabino Cooper Work Phone: [facility] [place] Work Phone: Start: 02-15-2023 End: 02-16-2023 ambulatory Yajaira Lisette Roque Facility:[facility] Jasmin castano Start: 01-29-2023 Office outpatient visit 25 minutes [facility] Start: 01-29-2023 End: 01-29-2023 ambulatory MD Sabino Cooper Work Phone: [facility] Work Phone: Start: 01-29-2023 End: 01-29-2023 Patient encounter procedure MD Sabino Cooper Work Phone: [facility] Work Phone: Start: 01-27-2023 End: 01-27-2023 ambulatory Wiley T Lilyaditii Facility:[id number] Start: 01-27-2023 End: 01-27-2023 ambulatory MD Sabino Cooper Work Phone: [facility] Work Phone: Start: 01-27-2023 End: 01-27-2023 Patient encounter procedure MD Sabino Cooper Work Phone: [facility]Pac[facility] Check Start: 01-12-2023 End: 01-13-2023 ambulatory Anjali Ruby Facility:[facility] Start: 01-12-2023 End: 01-12-2023 Patient encounter procedure Anjali Ruby [facility] Start: 12-17-2022 End: 12-18-2022 ambulatory Anjali Ruby Facility:[facility] Start: 12-17-2022 End: 12-17-2022 Patient encounter procedure Anjali Ruby [facility] Start: 12-15-2022 End: 12-16-2022 ambulatory Sabino Cooper Facility:[facility] Start: 12-09-2022 End: 12-09-2022 ambulatory Erwin Salazar Facility:[facility] Start: 12-09-2022 End: 12-09-2022 ambulatory MD Sabino Cooper Work Phone: [facility] Work Phone: Start: 12-09-2022 End: 12-09-2022 Patient encounter procedure MD Sabino Cooper Work Phone: [facility] Work Phone: Start: 11-23-2022 End: 11-24-2022 ambulatory Sabino Cooper Facility:[facility] Start: 11-23-2022 End: 11-23-2022 Lab Drop off Sabino Cooper [facility] Start: 11-18-2022 End: 11-18-2022 ambulatory STACEY PATEL [facility] Start: 11-10-2022 End: 11-10-2022 ambulatory JOSE R ALEXANDER [facility] Start: 11-04-2022 End: 11-05-2022 ambulatory Sabino Cooper Facility: [facility] Start: 11-02-2022 End: 11-03-2022 ambulatory Sabino Cooper Facility:[facility] Jasmin melendreze Start: 10-13-2022 Office outpatient visit 15 minutes Gisele Brunson [facility] Start: 10-13-2022 End: 10-13-2022 ambulatory Gisele Brunson Facility:[facility] Start: 10-13-2022 End: 10-13-2022 ambulatory MD Mg London Work Phone: [facility] Work Phone: Start: 10-13-2022 End: 10-13-2022 Patient encounter procedure MD Mg London Work Phone: [facility] Work Phone: Start: 10-05-2022 End: 10-06-2022 ambulatory Sabino Cooper Facility:[facility] Start: 09-29-2022 End: 09-29-[address] EDY CARNEY Facility: Start: 09-24-2022 End: 09-25-[address] MG LONDON Facility: Start: 09-22-2022 End: 09-22-2022 Emergency department patient visit Gordy Sánchez Facility:[facility] Start: 09-22-2022 End: 09-22-2022 Emergency department patient visit Gordy Sánchez [facility] Start: 09-22-2022 Office outpatient visit 15 minutes Griselda Pennington [facility] Start: 09-22-2022 End: 09-22-2022 ambulatory NARENDRANATH LAKSHMIPATHY . [facility] Other Start: 08-27-2022 ambulatory Sabino Cooper Facility : [facility] Start: 08-25-2022 End: 08-26-2022 ambulatory NARENDRANATH LAKSHMIPATHY . Facility: Start: 08-24-2022 End: 08-25-2022 ambulatory Sabino Cooper Facility: [facility] Start: 08-21-2022 ambulatory Inez Jiménezi ty: [facility] Start: 08-12-2022 ambulatory Facility:[id number] Start: 08-12-2022 End: 08-12-2022 ambulatory Missy Westfall Facility:[facility] Start: 08-12-2022 End: 08-12-2022 ambulatory MD Mg London Work Phone: [facility] Work Phone: Start: 08-12-2022 End: 08-12-2022 Patient encounter procedure MD Mg London Work Phone: [facility] [place] Work Phone: Start: 08-11-2022 End: 08-11-2022 ambulatory BETTY BUTTS . Facility:[facility] Start: 07-29-2022 Office outpatient ne w 60 minutes Erwin Salazar [facility] Start: 07-29-2022 End: 07-29-2022 ambulatory Erwin Salazar Facility:[facility] Start: 07-29-2022 End: 07-29-2022 ambulatory MD Mg London Work Phone: [facility] Work Phone: Start: 07-29-2022 End: 07-29-2022 Patient encounter procedure MD Mg London Work Phone: [facility] Work Phone: Start: 07-23-2022 End: 07-24-2022 ambulatory SONNY LAZO . Facility:[facility] Start: 07-22-2022 End: 07-23-2022 ambulatory ALANNA Araiza [facility] Facility:[facility] Start: 07-21-2022 ambulatory Facility:[id number] Start: 07-21-2022 End: 07-21-2022 ambulatory Missy Westfall Facility:[facility] Start: 07-21-2022 End: 07-21-2022 ambulatory MD Mg London Work Phone: [facility] Work Phone: Start: 07-21-2022 End: 07-21-2022 Patient encounter procedure MD Mg London Work Phone: [facility] Start: 06-18-2022 End: 07-10-2022 ambulatory SONA ABDON Facility:[facility] Start: 06-16-2022 End: 06-17-2022 ambulatory SONA ABDON Facility:[facility] Start: 06-11-2022 End: 06-12-2022 ambulatory ALANNA Araiza [facility] Facility:[facility]1 Start: 05-26-2022 End: 05-26-2022 Patient encounter procedure Dequan GALICIA [facility] Start: 04-16-2022 End: 04-17-[address] ERWIN FALCON Facility:[facility] Start: 03-19-[address] AMANDA CLANCY . Faci lity:[facility]1 Start: 03-12-2022 End: 03-13-2022 ambulatory ALANNA HARDY Facility:[facility] Start: 03-10-2022 End: 03-11-2022 ambulatory DIEGO COYNE Facility:[facility] Start: 03-06-2022 End: 03-07-[address] DOCTOR GOFF Facility:[facility] Start: 12-25-2021 End: 12-26-2021 ambulatory SONNY LAZO . Facility:[facility] Start: 12-01-2021 End: 12-02-2021 ambulatory ALANNA HARDY Facility:[facility] Start: 11-29-2021 End: 11-29-2021 ambulatory Leti Garcia Other [facility] Other Start: 11-29-2021 Office outpatient visit 15 minutes Leti Garcia [facility] Start: 11-13-2021 End: 12-19-2021 ambulatory IFEOMA JARQUIN Facility:[facility] Start: 09-04-2020 End: 09-04-2020 Patient encounter procedure Param Cosme Work Phone: [facility] [place] Start: 08-15-2020 End: 08-15-2020 Patient encounter procedure Param Cosme -Pacemaker Check Start: 08-30-2019 End: 08-31-2019 Patient encounter procedure EHAB A NEFTALI Facility:[facility] Procedures Date Procedure Procedure Detail [...] on above: Performed By: #### CBC #### [facility] [address] [place] [address] Dr. Ramsey Sanchez Start: 05-20-2020 Esophagogastroduodenoscopy Dequan Thapa Comment on above: 2 diminunative ulcers, gastritis, gastri c polyp, biopsy Angioplasty of blood vessel Dequan GALICIA Cardiac pacemaker procedure Dequan GALICIA Cataract (disorder) Gordy Sheriff jennielizabeth Comment on above: bilateral Cholecystectomy Dequan MALDONADO Colonoscopy Dequan GALICIA Hernia repair Dequan GALICIA Prostatectomy Dequan GALICIA Tonsillectomy Dequan GALCIIA Vasectomy Dequan GALICIA Plan of Treatment Date Care Activity Detail Author Start: 11-08-2023 ambulatory Ambulatory Facility:[facility] Start: 08-30-2023 ambulatory Ambulatory Facility:[facility] Start: 06-25-2023 ambulatory Ambulatory Facility:[facility] Start: 01-15-2023 Covid-19 Vaccine ( season) Covid-19 Vaccine () [facility] Start: 01-15-2023 Influenza vaccination Influenza Vaccine (#1) [facility] Start: 11-12-2022 ambulatory Ambulatory Facility: Start: 05-17-2022 Advance Directive Discussion Advance Directive Discussion [facility] Start: 05-17-2022 Depression Assessment Depression Assessment [facility] Start: 09-04-2020 MRI of right ankle MR ankle RT wo con [facility] Start: 09-04-2020 XR pre/post mri xray XR pre/post mri xray [facility] Start: 01-30-2015 Pneumococcal Vaccine: 65+ (2 - PPSV23 or PCV20) Pneumococcal Vaccine: 65+ (2 - PPSV23 or PCV20) [facility] Start: 1999 RSV Vaccine (1 - 1-dose 60+ series) RSV Vaccine (1 - 1-dose 60+ series) [facility] Start: 10-29-1989 Shingrix Vaccine (1 of 2) Shingrix Vaccine (1 of 2) [facility] Start: 10-29-1984 Diabetes Screening Diabetes Screening [facility] Start: 10-29-1958 Urine microalbumin profile DTaP,Tdap,Td Vaccine (1 - Tdap) [facility] Immunizations Immunization Date Immunization Notes Care Provider Fa cility 04-12-2023 influenza virus vaccine, unspecified formulation Anjali Staffordmetz [facility] 11-25-2021 SARS-CoV-2 mRNA (xwhiktctfwj-sizg-bjwvn se) vaccine Sabino Cooper [facility] 03-06-2021 SARS-CoV-2 (COVID-19 ) mRNA BNT-162b2 vax Sabino Cooper [facility] Comment on above: Result Comment: 2022: [id number] 02-18-2021 influenza virus vaccine, unspecified formulation Sabino Cooper [facility] 06-27-2020 SARS-CoV-2 (COVID-19 ) Ad26 vaccine, recombinant Dequan AGLICIA [facility] 06-27-2020 SARS-CoV-2 (COVID-19 ) mRNA BNT-162b2 vax Dequan GALICIA [facility] 06-06-2020 SARS-CoV-2 (COVID-19 ) Ad26 vaccine, recombinant Dequan GALICIA [facility] 06-06-2020 SARS-CoV-2 (COVID-19 ) mRNA BNT-162b2 vax Dequan GALICIA [facility] 02-14-2020 influenza virus vaccine, unspecified formulation Sabino Cooper [facility] 01-22-2018 influenza, unspecifi ed formulation Sabino Cooper [facility] 01-30-2014 pneumococcal conjuga te vaccine, 13 valent Sabino oCoper [facility] Payers Date Payer Category Payer Medicare UHC MEDICARE UHC AARP OPTUM CARE HMO [id number] 2022-Present [phone] [address] [address] [place] [address] HMO [id number] 2022 Medicare [id number] [id number] 2022 Private Health Insurance [id number] 2022 Self-pay [id number] 1959 Medicare [id number] 1959 Medicare [id number] 1959 Medicare [id number] 1959 Unknown [id number] 1939 Unknown [id number] 2..840.1.769026.3.579.2. 647 1939 Unknown [id number] ..840.1.163084.3.579.2. 593 1939 Unknown [id number] 2.16.840.1.061570.3.579.2. 593 1939 Unknown [id number] 2.16.840.1.928192.3.579.2. 593 1939 Unknown [id number] 2.16.840.1.173420.3.579.2. 593 1939 Unknown [id number] 2.16.840.1.339128.3.579.2. 593 1939 Unknown [id number] 2.16.840.1.293256.3.579.2. 593 1939 Unknown [id number] 2.16.840.1.701400.3.579.2. 593 1939 Unknown [id number] 2.16.840.1.654712.3.579.2. 593 1939 Unknown [id number] 2.16.840.1.828012.3.579.2. 593 1939 Unknown [id number] 2.16.840.1.191109.3.579.2. 593 1939 Unknown [id number] 2.16.840.1.839690.3.579.2. 593 1939 Unknown [id number] 2.16.840.1.076787.3.579.2. 593 1939 Unknown [id number] 2.16.840.1.570899.3.579.2. 593 1939 Unknown [id number] 2.16.840.1.260012.3.579.2. 593 1939 Unknown [id number] 2.16.840.1.899335.3.579.2. 593 1939 Unknown [id number] 2.16.840.1.224568.3.579.2. 593 1939 Unknown [id number] 2.16.840.1.849293.3.579.2. 593 1939 Unknown [id number] 2.16.840.1.575745.3.579.2. 593 1939 Unknown [id number] 2.16.840.1.938823.3.579.2. 593 1939 Unknown [id number] 2.16.840.1.062056.3.579.2. 593 1939 Unknown [id number] 2.16.840.1.796552.3.579.2. 356 1939 Unknown [id number] 2.16.840.1.168039.3.579.2. 356 1939 Unknown [id number] 2.16.840.1.081181.3.579.2. 356 1939 Unknown [id number] 2.16.840.1.542771.3.579.2. 727 1939 Unknown [id number] 2.16.840.1.030290.3.579.2. 727 1939 Unknown [id number] 2.16.840.1.923986.3.579.2. 727 1939 Unknown [id number] 2.16.840.1.853366.3.579.2. 72 1939 Unknown [id number] 2.16.840.1.769749.3.579.2. 727 1939 Unknown [id number] 2.16.840.1.335782.3.579.2. 727 1939 Unknown [id number] 2.16.840.1.054914.3.579.2. 727 1939 Unknown [id number] 2.16.840.1.746722.3.579.2. 727 1939 Unknown [id number] 2.16.840.1.496134.3.579.2. 727 1939 Unknown [id number] 2.16.840.1.451062.3.579.2. 727 1939 Unknown [id number] 2.16.840.1.250608.3.579.2. 727 1939 Unknown [id number] 2.16.840.1.078227.3.579.2. 727 1939 Unknown [id number] 2.16.840.1.837064.3.579.2. 727 1939 Unknown [id number] 2.16.840.1.518066.3.579.2. 727 1939 Unknown [id number] 2.16.840.1.759842.3.579.2. 72 1939 Unknown [id number] 2.16.840.1.393525.3.579.2. 72 1939 Unknown [id number] 2.16.840.1.502975.3.579.2. 1939 Unknown [id number] 2.16.840.1.454041.3.579.2. 72 1939 Unknown [id number] 2.16.840.1.243286.3.579.2. 1939 Unknown [id number] 2.16.840.1.904513.3.579.2. 72 1939 Unknown [id number] 2.16.840.1.677505.3.579.2. 1939 Unknown [id number] 2.16.840.1.520082.3.579.2. 727 Unknown [id number] 2.16.840.1.803945.3.579.2. 531 Unknown [id number] 2.16.840.1.889295.3.579.2. 531 Unknown [id number] 2.16.840.1.045350.3.579.2. 531 Unknown [id number] 2.16.840.1.112377.3.579.2. 531 Unknown [id number] 2.16.840.1.522618.3.579.2. 531 Unknown [id number] 2.16.840.1.678441.3.579.2. 531 Unknown [id number] 2.16.840.1.991777.3.579.2. 531 Unknown [id number] 2.840.1.329053.3.579.2. 531 Unknown [id number] 2.840.1.345864.3.579.2. 531 Unknown [id number] 2.840.1.737092.3.579.2. 531 Social History Date Type Detail [facility] Start: 1940 Sex Assigned At Male F [facility] Start: 04-01-2023 Sex Assigned At F [facility] Start: 04-27-2022 End: 05-25-2023 Tobacco smoking status Ex-smoker (finding) [facility] Comment on above: former smoker quit a t age 41, 1 PPD Tobacco smoking status Never [facility] Comment on above: former smoker quit a t age 41, 1 PPD History of tobacco use Current smoker [facility] History of tobacco use Cigarette Smoker C [facility] Start: 04-01-2023 Tobacco use and exposure Smokeless tobacco [facility]-user [facility] [facility] Start: 04-01-2023 History of Social function [facility] Start: 1940 Sex Assigned At Not on file C [facility] Medical Equipment Procedure Code Equipment [...] Assessment Result Facility 05-25-2023 Functional Status N/A [facility] 03-10-2023 Functional Status N/A [facility] 02-25-2023 Functional Status N/A [facility] 01-12-2023 Functional Status N/A [facility] 09-22-2022 Functional Status N/A [facility] 05-19-2022 Functional Status N/A [facility] Clinical Notes 11-29-2021 to 05-31-2023 Note Date [...] months. A prescription was sent to the [employer] for new supplies throughout the year. He [...] sleepiness, or poor response to treatment. . [employer] Other 01-09-2024 Hospital Discharge instructions Patient Education [...] grapefruit, pineapple, and nury. Vegetables Deep-fried vegetables. Citizen Of [place] fries. Any vegetables prepared with added fat. [...] provider. Document Revised: 11/11/2020 Document Reviewed: 11/11/2020 [employer] Patient Education 2022 [employer]. Follow Up Care 02/25/2023 14:06:51 With:Anjali Ruby CNP Address: When:1 month [facility] 12-01-2023 Note [id number] 04-15-2023 NoteEndoscopy Care After Procedure Please read the instructions outlined below and refer to this sheet in the next few weeks. These discharge instructions provide you with general information on caring for [facility] Your doctor may also give you specific [...] Document Re-Released: 10/25/2006 ExitCare? Patient Information ?2009 [facility], [facility]. Gastroenterology Upper Endoscopy, Adult, Care After After [...] activities are safe for you. ? Take vrth-xpv-dcjujsj and prescription medicines only as told by [...] provider. Document Revised: 08/12/2022 Document Reviewed: 08/12/2022 [employer] Patient Education ? 2022 [employer].[facility] 04-14-2023 [facility] Cardiology Clinic Note Chief Complaint: Patient here for 6 mo follow up CAD, hyperlipidemia, and hypertension. Due for routine device interrogation in May 2023. He is scheduled for EGD tomorrow at [facility]. Doesn't think he's had recent labs or testing. Denies chest pain, SOB, palpitations, and lightheadedness. Still does phase 3 cardiac rehab at [facility] 3 times a week. HPI: Jeremie [...] function is normal. L (more content not included)...[facility]11-20-2023 Miscellaneous Notes* Telephone Encounter - Lolly Dumont - 04/05/2023 9:44 AM EST Received records from [facility]. Reports for imaging listed below scanned. Images pushed through 09/27/2019 US Right Upper Quad 03/31/2020 CT ABD/PEL US Right Upper Quad [facility] MRI Abdomen 02/22/2023 US Soft Tissue Head & Neck Received many misc. labs & ER reports Operative Note & pathology from Laparoscopic Cholecystectomy Patient seen 04/01, please review, thank you! documented in this [facility]11-16-2023 NoteHNO ID: [id number] Author: Vaishali Pringle MD Service: ? Author [...] way of the shared medical record or [employer] services. Jeremie Bennett is a 82 year [...] past surgical history on file. Cholecystectomy in 2020 SOCIAL HISTORY Current tobacco use? NO Current [...] Pringle MD Medical De (more content not included)...[facility]11-16-2023 Nurse Note* Debby Holland MA - 04/01/2023 1:13 PM EST What is the reason for your visit today? Consult for [facility] Who is your referring physician? Anjali Ruby CNP Are you having poor oral intake? NO Have you had unintentional weight loss of 15 lbs/7 Kg in the last 3-6 months? NO Bowels: off and on Wound: Temperature: No Drains: No documented in this encounterCh[facility]11-16-2023 History of Present illness Narrative* [...] way of the shared medical record or [employer] postal services. Jeremie Bennett is a 82 [...] Level: 4 - Moderate documented in this encounterCh[facility]ic[facility]11-13-2023 NoteEhMD Melba Galloway MA The patient can hold Plavix for 5 days prior to the procedure and resume once acceptable. He must be on aspirin 81 mg daily while off Plavix. Thank you Done and faxed back to Dr. Powers Office.[facility] 03-10-2023 Hospital Discharge instructions Patient Education [...] Follow these instructions at home: Medicines Take rbhb-gqp-ejicnwo and prescription medicines only as told by [...] Watch your condition for any changes. Take usil-smx-hagxwgt and prescription medicines only as told by [...] provider. Document Revised: 06/21/2020 Document Reviewed: 09/11/2019 [employer] Patient Education 2022 [employer]. Follow Up Care 03/09/2023 09:58:32 With:Anjali Ruby CNP Address: When:1 to 2 weeks Comments:Following EGD. [facility] 10-12-2023 Hospital Discharge instructions Patient [...] Follow these instructions at home: Medicines Take ljgc-rfk-imwfiyw and prescription medicines only as told by your health care provider. If you were prescribed an antibiotic medicine, take it as told by your health care provider. Do notstop taking the antibiotic even if you start to feel better. Eating and drinking Make any diet changes as told by your health care provider. Work with a diet and inventory management specialist (dietitian) to create an eating plan that [...] provider. Document Revised: 12/21/2020 Document Reviewed: 12/21/2020 [employer] Patient Education 2022 [employer] Follow Up Care 02/22/2023 16:17:47 With:Anjali Ruby CNP Address: When:3 months [facility] 09-15-2023 Evaluation note* Encounter Date [...] months. A prescription was sent to the [employer] for new supplies throughout the year. He [...] sleepiness, or poor response to treatment. . [employer] Other 08-29-2023 Hospital Discharge instructions Patient Education [...] including vitamins, herbs, eye drops, creams, and dxuj-yjz-powtclr medicines. Any problems you or family members [...] provider tells you to take them. Taking scyw-tqs-wasojjz medicines, vitamins, herbs, and supplements. General instructions [...] provider. Document Revised: 04/27/2022 Document Reviewed: 12/24/2021 [employer] Patient Education 2022 [employer]. Follow Up Care 12/28/2022 08:53:11 With:Anjali Ruby CNP Address: When:1 to 2 weeks Comments:Following EGD/Colonoscopy. [facility] 08-29-2023 NoteRadiology Colonoscopy, [...] including vitamins, herbs, eye drops, creams, and dwyf-hec-kuxtlww medicines. ? Any problems you or family [...] tells you to take them. ? Taking ulzv-kpz-oshbodb medicines, vitamins, herbs, and supplements. General instructions [...] checked for cancer cells. (more content not included)...[facility]08-01-2023 Note Radiology Colonoscopy, Adult A colonoscopy [...] including vitamins, herbs, eye drops, creams, and bjmx-qwt-jfqnhhs medicines. ? Any problems you or family [...] tells you to take them. ? Taking ekgq-oos-glgdvbt medicines, vitamins, herbs, and supplements. General instructions [...] checked for cancer cells. (more content not included)...[place]07-10-2023 NoteRefill for amlodipine sentUnKind[facility]06-27-2023 NoteDue for device interrogation next weekUnKindred Healthcare06-27-2023 Note Hypertension is well controlled 114/77 [facility]Univers[facility]06-27-2023 Note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 Continue crestorUnKindred Healthcare06-27-2023 NoteCoronary artery disease is stable without concerning symptoms Continue GDMT continue risk factor modifications- heart healthy diet, regular exercise as tolerated and continue all medications.[facility] 11-10-2022 NoteUTP CARDIOLOGY PROGRESS NOTE HPI: [...] BY MOUTH EVERY DAY AT NIGHT [DISCONTINUED] lskiikwpdV-uwyxwbxtpl-qmf-cod (Fioricet W/Codeine) 75-225-55-30 mg capsule Take 1 capsule by mouth every 4 (four) hours if needed. [DISCONTINUED] rgrfgxpuqk-yudoaymdzypoo-ppsi (Fioricet) 50-300-40 mg capsule every 4 (four) [...] Bowel sounds are n (more content not included)...[facility]06-27-2023 NoteHere today for evaluation post Covid 19 illness, appears to be recovered well, no concerning cardiac symptoms currently. F?U with PCPUnKindred Healthcare05-30-2023 Evaluation note* Encounter Date Diagnosis Assessment Notes [...] sleepiness, or poor response to treatment. . [employer] Other 05-09-2023 NoteInfectious Disease COVID-19 COVID-19, or [...] managed at home with rest, fluids, and nvdw-pwk-ytysrie medicines. ? Serious symptoms may be treated [...] condition. ? You should (more content not included)...[facility]05-09-2023 Hospital Discharge instructions Patient Education 09/22/2022 [...] managed at home with rest, fluids, and vmfw-ixp-pgxwzww medicines. Serious symptoms may be treated in [...] 3-dose primary series. ?If you get the J&J/Alseha vaccine, you will need a 2-dose primary [...] water are not available, use alcohol-based hand lead project engineer. Make sure that all people in [...] managed at home with rest, fluids, and znzo-ins-xrmpkfj medicines. This information is not intended to replace advice given to you by your health care provider. Make sure you discuss any questions you have with your health care provider. Document Revised: 04/23/2022 Document Reviewed: 04/23/2022 [employer] Patient Education 2022 [employer]. Follow Up Care 09/22/2022 16:24:11 With:Sabino Cooper Address: [address] [place] [address] Business (2) When:09/25/2022 18:12:09 [facility]05-09-2023 Evaluation note* Encounter Date Diagnosis Assessment Notes [...] no improvement in 2 to 3 days. [employer] Other 04-11-2023 NoteCONSULTATION CONSULTATION DATE: 08/25/2022 TO: [...] our patients to inform us about any phdg-sqp-ywpfcuj medications or herbal remedies/nutritional supplements/alternative remedies. 2. [...] treatment options with their primary care provider.[facility] [id number] Evaluation note * Encounter Date Diagnosis Assessment [...] symptoms if he does not take his nvun-mdn-gtyuxps hypnotic, sleep hygiene issues may also be [...] neuropathy pain Jul, Coronary artery disease involving [place] heart without angina pectoris, unspecified vessel or [...] he does have a defibrillator in place [employer] Other 03-09-2023 NoteCONSULTATION CONSULTATION DATE: 07/23/2022 HISTORY [...] gain authorization to hold the Plavix pre-procedure.[facility] [id number] NotePROCEDURE: XR ANKLE RT MIN 3 VIEWS COMPARISON: 08/22/2020 HISTORY: Pain of right ankle joint FINDINGS: BONES:No acute fracture or dislocation. Moderate enthesopathic spurring of the calcaneus. Degenerative changes with bone fragments along the inferior medial malleolus, stable. SOFT TISSUES:Negative. No visible soft tissue swelling. EFFUSION:None visible. OTHER: Negative. IMPRESSION: Stable degenerative changes Electronically authenticated by: ERWIN FALCON Date: 2022-07-22 10:37[facility] [id number] NotePROCEDURE: XR FOOT RT MIN 3 VIEWS [...] authenticated by: CLARISSA GARCIA Date: 2022-06-16 15:25[facility] [id number] Hospital Discharge instructions Patient Education 05/26/2022 13:46:25 [...] With:Dequan GALICIA Address: [facility] [address] [place] [address]- Business (1) When: Unknown Comments:Office will call to schedule follow up [facility]08-11-2022 NoteCONSULTATION PROCEDURE DATE: 12/25/2021 PRE AND POSTOPERATIVE [...] will be followed up in the clinic.[facility] 12-25-2021 NoteCONSULTATION CONSULTATION DATE: 12/25/2021 This [...] recently seen at an urgent care in [place] for left thumb pain and joint swelling. [...] in three months' time unless otherwise indicated.[facility] [id number] Evaluation note* Encounter Date Diagnosis Assessment Notes [...] will help you get into a specialist. [employer] Other chief complaint+Reason for visit Narrative* Chief Complaint N54.2 Self Referral [facility] Work Phone: Chibq complaint+Reason for visit Narrative* Chief Complaint N54.2 Self Referral [id number] [id number] m54.2 [facility] Work Phone: chief complaint+Reason for visit Narrative* Chief Complaint N54.2 Self Referral [id number] m54.12 m54.2 isidro, 31-90 [facility] Work Phone: Evaluation + Plan note No data available for this section [facility] note Future Appointments Appointment Date:11/23/2022 09:00:00 AM Scheduled Provider:Sabino Cooper MD Location:[facility] Appointment Type: Open [facility] Future Appointments Appointment Date:12/15/2022 12:00:00 PM Scheduled Provider:Anjali Ruby CNP Location[facility] Appointment Type:[facility] New Patient Appointment Date:05/31/2023 09:00:00 AM Scheduled Provider:Sabino Cooper MD Location:[facility] Appointment Type: Open Appointment Date:11/08/2023 01:00:00 PM Scheduled Provider: Location:[facility] Appointment Type:FM Medicare Wellness Subsequent Future Scheduled Tests Laboratory* HgbA1c 11/23/22 * CBC w/ Auto Diff 11/23/22 * Comprehensive Metabolic Panel 11/23/22 * Lipid Panel 11/23/22 [facility] Future Appointments Appointment Date:05/31/2023 09:00:00 AM Scheduled Provider:Sabino Cooper MD Location:[facility] Appointment Type: Open Appointment Date:11/08/2023 01:00:00 PM Scheduled Provider: Location:[facility] Appointment Type:FM Medicare Wellness Subsequent Future Scheduled Tests Laboratory* HgbA1c 11/23/22 * CBC w/ Auto Diff 11/23/22 * Comprehensive Metabolic Panel 11/23/22 * Lipid Panel 11/23/22 [facility] Future Appointments Appointment Date:05/31/2023 09:00:00 AM Scheduled Provider:Sabino Cooper MD Location:[facility] Appointment Type: Open Appointment Date:11/08/2023 01:00:00 PM Scheduled Provider: Location:[facility] Appointment Type:FM Medicare Wellness Subsequent Future Scheduled Tests Laboratory* HgbA1c 11/23/22 * CBC w/ Auto Diff 11/23/22 * Comprehensive Metabolic Panel 11/23/22 * Lipid Panel 11/23/22 Radiology* CT Abdomen w/ Contrast 01/12/23 [facility] Evaluation + Plan note Future Appointments Appointment Date:05/03/2023 01:40:00 PM Scheduled Provider:Anjali Ruby CNP Location:[facility] Appointment Type:[facility] Follow Up Appointment Date:05/31/2023 09:00:00 AM Scheduled Provider:Sabino Cooper MD Location:[facility] Appointment Type: Open Appointment Date:11/08/2023 01:00:00 PM Scheduled Provider: Location:[facility] Appointment Type:FM Medicare Wellness Subsequent Future Scheduled Tests Laboratory* HgbA1c 11/23/22 * CBC w/ Auto Diff 11/23/22 * Comprehensive Metabolic Panel 11/23/22 * Lipid Panel 11/23/22 [facility] Swypealuation + Plan note Future Appointments Appointment Date:05/03/2023 01:40:00 PM Scheduled Provider:Anjali Ruby CNP Location:[facility] Appointment Type:[facility] Follow Up Appointment Date:05/31/2023 10:00:00 AM Scheduled Provider:Sabino Cooper MD Location:[facility] Appointment Type: Open Appointment Date:11/08/2023 01:00:00 PM Scheduled Provider: Location:[facility] Appointment Type: Medicare Wellness Subsequent Future Scheduled Tests Laboratory* HgbA1c 11/23/22 * CBC w/ Auto Diff 11/23/22 * Comprehensive Metabolic Panel 11/23/22 * Lipid Panel 11/23/22 [facility] Evaluation + Plan note Future Appointments Appointment Date:05/03/2023 01:40:00 PM Scheduled Provider:Anjali Ruby CNP Location:[facility] Appointment Type:[facility] Follow Up Appointment Date:05/31/2023 10:00:00 AM Scheduled Provider:Sabino Cooper MD Location:[facility] Appointment Type: Open Appointment Date:11/08/2023 01:00:00 PM Scheduled Provider: Location:[facility] Appointment Type:FM Medicare Wellness Subsequent Diagnostic Tests Pending * O & P Exam, Routine 03/10/23 * Giardia lamblia, Direct Detection EIA 03/10/23 Future Scheduled Tests Laboratory* HgbA1c 11/23/22 * CBC w/ Auto Diff 11/23/22 * Comprehensive Metabolic Panel 11/23/22 * Lipid Panel 11/23/22 [facility] Future Appointments Appointment Date:05/31/2023 10:00:00 AM Scheduled Provider:Sabino Cooper MD Location:[facility] Appointment Type: Open Appointment Date:06/25/2023 01:20:00 PM Scheduled Provider:Anjali Ruby CNP Location:[facility] Appointment Type:[facility] Follow Up Appointment Date:11/08/2023 01:00:00 PM Scheduled Provider: Location:[facility] Appointment Type:FM Medicare Wellness Subsequent Future Scheduled Tests Laboratory* HgbA1c 11/23/22 * CBC w/ Auto Diff 11/23/22 * Comprehensive Metabolic Panel 11/23/22 * Lipid Panel 11/23/22 [facility] Evaluation noteNo Assessments Information Available [facility] assessment information available [facility] Work Phone: Evaluation note* Diagnosis 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 [facility]* Diagnosis 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 documented in this encounter [facility] general Narrative - Reported* Type Description Date Medical History DM (diabetes mellitus) Medical History HTN (hypertension) Medical History Hypercholesteremia Medical History Vitamin D deficiency, unspecifie d Medical History CAD (coronary artery disease) Surgical History Neck Surgery Surgical History cholecystectomy Surgical History cardiac stent Surgical History prostatectomy Surgical History hernia Hospitalization History see above [facility] Other History general Narrative - Reported* Type [...] Surgical History hernia Hospitalization History see above [facility] Other Hospital Discharge instructions No data available for this section [facility] No data available for this section [facility] CenterReason for referral (narrative) Referred by: Anjali Ruby CNP [facility] Summary Purpose Family History No Family History Records FoundNo Family History Records FoundNo Family History Records Found No data available for this section No data available for this section No data available for this section No Family History Records Found No data available [...] injury Chief Complaint N54.2 Chief Complaint isidro, 31- [facility] Obstructive sleep apnea Chief Complaint Obstructive [...] section and content) DATE CREATED AUTHOR 02/08/[address] [facility] DATE CREATED AUTHOR AUTHOR'S ORGANIZ ATION 09/30/2022 [facility] DATE CREATED AUTHOR AUTHOR'S ORGANIZ ATION 02/04/2023 [facility] DATE CREATED AUTHOR AUTHOR'S ORGANIZ ATION 05/01/2023 [facility] DATE CREATED AUTHOR AUTHOR'S ORGANIZ ATION 05/26/2023 [facility] DATE CREATED AUTHOR AUTHOR'S ORGANIZ ATION 06/01/2023 [facility] DATE CREATED AUTHOR AUTHOR'S ORGANIZ ATION 06/15/2023 [facility] REASON FOR VISIT (unrecogniz ed section and content) Reason Comments Consult [facility] Reason Comments Received Outside Medical Records Patient [...] Sabino Cooper MD Primary Care Provider Active FABIO Chavez Attending Provider Active Spot Man Relationship Specialty Start Date End Date Anjali Ruby C[place] [address] [place] [address] Referring Family Medicine 03/03/23 Spot Man Relationship Specialty Start Date End Date Anjali Ruby CNP [address] [place] [address] Referring Family Medicine 03/03/23 Goals (unrecognized section [...] or prosecute any alcohol or drug abuse patient.[facility] CenterIn the event this information is protected by the Federal Confidentiality of Alcohol and Drug Abuse Patient Records regulations: The Federal rules restrict any use of the information to criminally investigate or prosecute any alcohol or drug abuse patient.[facility] FOR RECORDS PERTAINING TO PATIENTS [...] BE BASED ON THE PRIMARY CLINICAL RECORDS. [facility] [employer] [facility]. provides no warranty or guarantee of the accuracy or completeness of information in this document.
--- NOTE | 2023-06-17 13:13 | PM.CN ---
Consult Note: HPI Data of Consult Patient: known to practice within the last 3 years Requesting Physician: Alexandra Trevizo NP Primary Care Provider: SABINO COOPER Consult Narrative Reason for consult: Procedure f/u Narrative: Jair Bennett a pleasant 82 year old male presents for evaluation of chronic low back pain. Recently underwent right lumbar 2,3 &4,5 facet medial branch block #2 80-90% immediate pain relief and functional improvement. Pain is now in right lower back and neck. Today rating pain 4/10 in low back and neck, up to 7-8/10 with activity. cc:: CC: Alexandra Trevizo NP Review of Systems ROS Status of ROS 10 or more systems reviewed and unremarkable except as noted in history and below Musculoskeletal Reports: back pain, neck pain and joint pain PFSH PFSH Medical History Surgical History H/O angioplasty ?Z98.62 - Peripheral vascular angioplasty status (ICD-10) H/O vasectomy ?Z98.52 - Vasectomy status (ICD-10) H/O neck surgery ?Z98.890 - Other specified postprocedural states (ICD-10) History of repair of inguinal hernia ?Z98.890 - Other specified postprocedural states (ICD-10) ?Z87.19 - Personal history of other diseases of the digestive system (ICD-10) History of prostatectomy ?Z90.79 - Acquired absence of other genital organ(s) (ICD-10) History of phacoemulsification of cataract of both eyes with intraocular lens implantation ?Z98.41 - Cataract extraction status, right eye (ICD-10) ?Z98.42 - Cataract extraction status, left eye (ICD-10) ?Z96.1 - Presence of intraocular lens (ICD-10) History of cardiac radiofrequency ablation ?Z98.890 - Other specified postprocedural states (ICD-10) History of tonsillectomy ?Z90.89 - Acquired absence of other organs (ICD-10) Social History Smoking status: Former smoker Meds Home Medications and Allergies Home Medications Medication Instructions Recorded Confirmed Type amlodipine 5 mg tablet 5 mg PO QDAY 10/14/22 06/08/23 History aspirin 81 mg tablet,delayed 81 mg PO QDAY 10/14/22 06/08/23 History release (Adult Low Dose Aspirin) butalbital 50 mg-acetaminophen 300 1 cap PO Q4H PRN pain 10/14/22 06/08/23 History mg-caffeine 40 mg-codeine 30 mg cap clopidogrel 75 mg tablet (Plavix) 75 mg PO QDAY 10/14/22 06/08/23 History diphenhydramine 25 1 tab PO ONCE 10/14/22 06/08/23 History mg-acetaminophen 500 mg tablet (Tylenol PM Extra Strength) dorzolamide (PF) 2 % (PF) eye drops 1 drp ophthalmic (eye) TID 10/14/22 04/20/23 History fluticasone propionate 50 1 spray intranasal QDAY PRN nasal 10/14/22 06/08/23 History mcg/actuation nasal congestion spray,suspension (24 Hour Allergy Relief) furosemide 20 mg tablet (Lasix) 20 mg PO QDAY 10/14/22 06/08/23 History irbesartan 300 mg tablet (Avapro) 300 mg PO QDAY 10/14/22 06/08/23 History isosorbide mononitrate 30 mg PO BID 10/14/22 06/08/23 History latanoprost 0.005 % eye drops 1 drp ophthalmic (eye) QDAY 10/14/22 06/08/23 History loperamide 2 mg capsule 2 mg PO Q2H PRN loose stool 10/14/22 06/08/23 History (Anti-Diarrheal (loperamide)) metformin 500 mg tablet 500 mg PO BID 10/14/22 06/08/23 History multivitamin (Daily Multi-Vitamin 1 tab PO QDAY 10/14/22 06/08/23 History tablet) omeprazole 40 mg capsule,delayed 40 mg PO QDAY 10/14/22 06/08/23 History release rosuvastatin 10 mg tablet (Crestor) 10 mg PO QDAY 10/14/22 06/08/23 History sotalol 40 mg PO BID 10/14/22 04/20/23 History tizanidine 4 mg tablet 4 mg PO ONCE 10/14/22 06/08/23 History Allergies Allergy/AdvReac Type Severity Reaction Status Date / Time adhesive Allergy Mild Verified 04/20/23 09:53 niacin Allergy Mild Verified 04/20/23 09:53 [From [facility] Extended-Release] Exam Constitutional Documenting provider has reviewed patient's vital signs: yes Common normals: no apparent distress, oriented x3, healthy appearing, alert and well nourished General appearance: cooperative HENMT Common normals: normocephalic, hearing grossly normal bilaterally and moist oral mucous membranes Head and scalp: normocephalic Eye Common normals: PERRL Pupil: PERRL Neck & C-Spine Common normals: full ROM General: normal visual inspection Cervical spine: cervical ROM abnormal and pain with cervical ROM Chest Common normals: inspection of chest normal Respiratory Common normals: normal respiratory effort, no retractions and no use of accessory muscles Back & Pelvis Lumbar spine/lower back: ROM limited and pain with ROM Other: predominately axial low back pain on right side over l2-l5 without radiculopathy facet loading positive on right side Extremity Common normals: normal to inspection and full ROM Right lower extremity: hip joint Other: positive leg roll/internal rotation of left hip negative tenderness over right GTB, no pain over IT band Neuro Common normals: oriented x3, CN's II-XII intact bilaterally, moves all extremities, no focal motor deficits, no sensory deficits noted and deep tendon reflexes 2+ bilaterally Sensorium/orientation: alert Gait (neuro): antalgic Motor exam: strength 5/5 throughout and no movement abnormalities noted Psych Common normals: mental status grossly normal, thought process normal, cooperative, affect normal, speech normal and activity/motor behavior normal Speech: normal speech Thought process: normal thought process Results Additional Findings Additional findings: I have checked an [place] report on this patient today and there are no aberrancies noted in the prescribing history.?? A drug screen was completed and reviewed within the last year, and if there has not been a drug screen completed we ordered one today to monitor higher risk, state monitored pain medication use. As part of providing excellent, safe, comprehensive care, the following was completed at our patient's visit: 1. A medication reconciliation and review to ensure accurate knowledge of current/active medications, including asking our patients to inform us about any [id number] medications or herbal remedies/nutritional supplements/alternative remedies. 2. A review to specifically ensure our patients have had annual screening for: elevated body mass index (BMI), tobacco use, screening for depression, and screening for unhealthy alcohol use. When screening is concerning, patients are provided with education and the specific recommendation to discuss the concerning health issue and treatment options with their primary care provider. Assessment and Plan Assessment and Plan (1) Lumbar spondylosis: Assessment and Plan: The patient has had over 3 months of moderate to severe back pain with functional impairment and inadequate response to conservative care including NSAIDS (unless there are contraindication such as concurrent blood thinners), multiple oral or topical pain medications, and home exercise program/physical therapy.? Patient has completed >6 weeks of guided home exercise program and/or formal physical therapy program without relief of their symptoms.? I have reviewed the imaging of the lumbar spine and no red flags were identified.? The imaging reveals radiographic findings consistent with lumbar spondylosis We discussed the risks and benefits of the procedure with the patient, and we are NOT planning on using sedation as outlined in the guidelines from Medicare unless there is a documented reason that sedation would be strongly recommended.?? ?The procedure will be completed with fluoroscopic guidance.? 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 will need cardiology clearance as patient has a pacemaker cervical xray reviewed, plan for cervical facet blocks in the future continue HEP as tolerated continue current medications and topical cream, tolerating well without side effects f/u 1 month after RFA
== END 2023-06-17 12:42 | disposition home or self-care (01) ==
LOC: PM 12:41
PROVIDERS: PCP Family Medicine; Visit Provider Nurse Practitioner
DX: M47.816 Spondylosis without myelopathy or radiculopathy, lumbar region (principal); M62.838 Other muscle spasm; Z79.01 Long term (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 of anticoagulants; M54.2 Cervicalgia; M47.812 Spondylosis without myelopathy or radiculopathy, cervical region; M25.551 Pain in right hip
CPT/HCPCS: G0463

== ENCOUNTER 2023-08-17 07:15 | Day surgery (SDC) | payer MEDICARE, SELFPAY ==
--- OUTSIDE RECORDS SUMMARY | 2023-08-17 07:18 | XMS_ITS | CCD ---
Author Organization [facility] Care Team Providers Care 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 Name Role Phone MARGARET ARELLANO A Admitting Unavailable NUNOMARGARET BAE Attending Unavailable SABINO COOPER Referring Unavailable SABINO COOPER Primary Care Unavailable Param Cosme Attending Provider Sabino Cooper Primary Care Provider [phone] Param Cosme Attending Provider Sabino Cooper Primary Care Provider [phone] Leti Garcia Unavailable MG LONDON Primary Care Physician KAT Westfall Attending Provider MD Mg London Primary Care Provider KAT Westfall Attending Provider [phone] MD Mg [place] Primary Care Provider MD Erwin Salazar Attending Provider [phone] Erwin Salazar Unavailable MARCE Hardy Attending Provider [phone] KAT Westfall Other Provider Sabino Cooper Primary Care Physician [phone] Griselda Pennington Unavailable ALANNA HARDY Admitting Unavailable ALANNA HARDY Attending Unavailable LITA, DR MG Omalley Primary Care Unavailable KYLE, DR ERWIN Bell Consulting Unavailable ALANNA HARDY [...] DIEGO Admitting Unavailable STANFORD, DIEGO Consulting Unavailable NADERER, DR MG Omalley Primary Care Unavailable ABDON, SONA Attending Unavailable ABDON, SONA Admitting Unavailable ZIEBER, DR CLARISSA Cline Consulting Unavailable NADERER, DR MG Omalley Primary Care Unavailable ABDON, SONA Consulting Unavailable NADERER, DR MG Omalley Primary Care Unavailable MARKER ., DR ODELL Consulting Unavailable MARKER ., DR ODELL Admitting Unavailable MARKER ., DR ODELL Attending Unavailable HIGHTOWER, GIN Consulting Unavailable ABDON, SONA Attending Unavailable ABDON, SONA Admitting Unavailable NADERER, DR MG Omalley Primary Care Unavailable LAZO ., SONNY Consulting Unavailable NADSILVIA, DR MG Omalley Primary Care Unavailable CLANCY [...] NADERER, DR MG Omalley Primary Care Unavailable LAKSHMIPATHY ., BETTY Attending Lisset vailable NADERESon, DR MG Omalley [...] Primary Care Unavailable ALANNA HARDY Admitting Unavailable ALANNA HARDY Attending Unavailable NADERESon, DR MG Omalley Primary Care Unavailable ALANNA HARDY Attending Unavailable ALANNA HARDY Admitting Unavailable NADERER, DR MG Omalley Primary Care Unavailable MISC, DR BECKER Attending Unavailable MAGYWSHAIKH Jane SULLIVAN Consulting Unavailable MISC, DR BECKER Admitting Unavailable NADERER, DR MG Omalley Primary Care Unavailable KYLE, DR ERWIN Bell Consulting Unavailable ELTAHAWY, DR CAO Admitting Unavailable ELTAHAWY, DR CAO Attending Unavailable NADERER, DR MG Omalley Primary Care Unavailable ELTAHAWY, DR CAO Consulting Unavailable REINECK, DR EDY Da Silva Admitting Unavailabl e NADERER, DR MG Omalley Primary Care Unavailable REINECK, DR EDY Da Silva Consulting Unavailabl e REINECK, DR EDY Da Silva Attending Unavailabl e NEFCY, ALANNA Consulting Unavailable IFEOMA JARQUIN Admitting Unavailable NADERER, DR MG Omalley Primary Care Unavailable IFEOMA JARQUIN Attending Unavailable ALANNA HARDY Attending Unavailable ALANNA HARDY Admitting Unavailable NADERER, DR MG Omalley Primary Care Unavailable Boy, TECHNICAL IMPLEMENTATION LEAD Gisele Attending Provider MD Sabino Cooper Primary Care Provider Brunson, Gisele Unavailable MD Erwin Salazar Attending Provider [phone] MD Sabino Cooper Primary Care Provider MD Inez Henderson Attending Provider Esme Brunson NP Gisele Attending Provider [phone] FABIO Ruby Attending Provider Flori GARZA, Anjali Unavailable VAISHALI PRINGLE Attending Unavailable ELTAHAWY, MARGARET Attending Unavailable JORGE, DANIEL Referring Unavailable JORGE, DANIEL Referring Unavailable JORGE, DANIEL Referring Unavailable JOSE R ALEXANDER Attending Unavailable MD Sabino Cooper Primary Care Provider [phone] Boy, TECHNICAL IMPLEMENTATION LEAD Gisele Attending Provider Missy Westfall Consulting Unavailable Alanna Hardy Admitting Unavailable Alanna Hardy Attending Unavailable Mg London Primary Care Unavailable Missy Westfall Admitting Unavailable Missy Westfall Attending Unavailable Lita, Mg Primary Care Unavailable Brunson, Gisele Admitting Unavailable Brunson, Gisele Attending Unavailable Sabino Cooper Primary Care Unavailable Erwin Salazar Admitting Unavailable Erwin Salazar Attending Unavailable Sabino Cooper Primary Care Unavailable Sarmini, Wiley T Admitting Unavailable Sarmini, Wiley T Attending Unavailable Hermes Sabino E Primary Care Unavailable Brunson, Gisele Admitting Unavailable Brunson, Gisele Attending Unavailable Hermes Sabino E Primary Care Unavailable Sabino Cooper Primary Care Unavailable Flori, Anjali Ifeoma Admitting Unavailable Flori, Anjali Ifeoma Attending Unavailable Brunson, Gisele Admitting Unavailable Brunson, Gisele Attending Unavailable Sabino Cooper Primary Care Unavailable Malou, Missy Admitting Unavailable Malou, Missy Attending Unavailable Mg London Primary Care Unavailable Erwin Salazar Admitting Unavailable Erwin Salazar Attending Unavailable Mg [place] Primary Care Unavailable Flori, Anjali A Admitting Unavailable Flori, Anjali A Attending Unavailable Flori, Anjali A Referring Unavailable Flori, Anjali A Attending Unavailable Flori, Anjali A Admitting Unavailable Sabino Cooper Admitting Unavailable Sabino Cooper Attending Unavailable Sabino Cooper Attending Unavailable Yajaira Roque Attending Unavailable Sabino Cooper Attending Unavailable Sabino Cooper Attending Unavailable Sabino Cooper Attending Unavailable Sabino Cooper Attending Unavailable Gordy Sánchez Attending Unavailable Sarmini, Wiley Talal Admitting Unavaila ble Sarmini, Wiley Talal Attending Unavaila ble Sarmini, Wiley Talal Referring Unavaila ble Flori, Anjali A Attending Unavailable Flori, Anjali A Attending Unavailable Flori, Anjali A Attending Unavailable Flori, Anjali A Attending Unavailable Sabino Coopre Referring Unavailable Flori, Anjali A Attending Unavailable Flori, Anjali A Attending Unavailable Flori, Anjali A Attending Unavailable Sabino Cooper Attending Unavailable Sabino Cooper Attending Unavailable Sabino Cooper Attending Unavailable Sabino Cooper Attending Unavailable Gordy Powers Admitting Unavailable Gordy Powers Attending Unavailable Gordy Powers Referring Unavailable Unavailable Unavailable Unavailable Allergies Allergy Classification Reported Allergen(s) Allergy Type Date of Onset Reaction(s) Facility (3 sources) Desonide Drug Allergy 0 [facility] Repository (1 source) Niacin Drug Allergy 0 [facility] Repository (7 sources) Adhesive agent; Translations: [adhesive] Drug allergy 4 [facility] Repository (13 sources) Niacin; Translations: [niacin] Drug Allergy 9 hives, Itching (finding), Itching, Unknown [facility] [place] (10 sources) Adhesive bandage; Translations: [Adhesive Bandage] Allergy to substance Eruption of skin (disorder) [facility] [place] (5 sources) Niacin Drug Allergy [facility] Other (2 sources) Niaspan Starter Pack Drug allergy (disorder) 8 [facility] Repository (3 sources) Adhesive Tape-Silicones; Translations: [ADHESIVE TAPE-SILICONES] Drug Allergy 9 [facility] (1 source) Niacin Drug Allergy 4 [facility] Repository (1 source) Niacin; Translations: [Niaspan ER] Drug Allergy [facility] Repository Medications Current Medications Medication Drug Class(es) Dates Sig (Normalized) Sig (Original) Albuterol (Eqv-ProAir HFA) 90 mcg/inh inhalation aerosol (7 sources) Start: 11-09-2022 Albuterol (Eqv-ProAir HFA) 90 mcg/inh inhalation aerosol See Instructions, 17 gm, Refill(s) 6, USE 2 INHALATIONS BY MOUTH EVERY 6 HOURS, [facility] ([facility]), 163, cm, 11/04/22 15:03:00 EDT, [...] Acid 7540 MG / POLYETHYLENE GLYCOL 3350 22950 MG / Potassium Chloride 1200 MG / Sodium Ascorbate 83081 MG / Sodium Chloride 3200 MG Powder for Oral Solution) / 1 (POLYETHYLENE GLYCOL 3350 622583 MG / Potassium Chloride 1000 MG / Sodium Chlori (5 sources) Osmotic Laxative, Vitamin C Start: 12-15-2022 Plenvu oral powder for reconstitution See Instructions, 1 EA, Refill(s) 0, Prior to colonoscopy., [id number], 163, cm, 12/15/22 12:03:00 EDT, Height/Length Dosing, [...] procedure, # 10 cap(s), Refills(s) 0, Pharmacy: [facility] #[id number], 167, cm, 04/27/22 8:46:00 EST, Height/Length Dosing, [...] day(s), # 90 packet(s), Refills(s) 0, Pharmacy: [facility] #[id number], 163, cm, 05/25/23 12:33:00 EST, Height/Length Dosing, [...] Active Fish Oils (7 sources) Start: 11-04-2022 [place]-3 Fish O il Oral, Daily, Refills(s) 0, Prophylaxis Start Date: 11/04/22 Status: Ordered Start: 11-04-2022 [place]-3 Fish O il Oral, Daily, Refills(s) 0 Start Date: 11/04/22 Status: Ordered fluticasone 0.05 mg/inh Nasal Kathleen (1 source) Start: 04-24-2020 fluticasone 0. 05 mg/inh Nasal Kathleen Daily, Refill(s) 0 Start Date: 04/24/20 Status: [...] TID, # 270 EA, Refills(s) 0, Pharmacy: [facility], 163, cm, 02/25/23 13:29:00 EDT, Height/Length [...] 0, Prophylaxis Start Date: 04/24/20 Status: Ordered [place] 3 (5 sources) [place] 3 Active omeprazole 40 mg delayed release oral capsule (16 sources) Proton Pump Inhibitor Start: 023 take 1 capsule by mouth once daily omeprazole 40 mg Cap-DR See Instructions, TAKE 1 CAPSULE BY MOUTH DAILY, # 90 cap(s), Refills(s) 3, Pharmacy: [facility] ([facility]), 163, cm, 12/15/22 12:03:00 EDT, Height/Length Dosing, 73.3, kg, 12/15/22 12:03:00 EDT, Weight Dosing Start Date: 01/06/23 Status: Ordered Start: 08-24-2022 take 1 capsule by [facility] once daily omeprazole 40 mg Cap-DR 40 mg, Oral, Daily, # 90 EA, Refills(s) 0, Pharmacy: [facility] ([facility] ), 167.6, cm, 08/24/22 8:10:00 [...] DAILY, # 90 tab(s), Refills(s) 3, Pharmacy: [facility] ([facility]), 163, cm, 11/04/22 15:03:00 EDT, [...] (F LONASE) 50 mcg/actuation nasal spray 1 Kathleen. 0 08/24/2022 Active Start: 08-24-2022 take 1 spray(s) nasa l route twice daily Flonase 0.05 mg/inh Kathleen 1 spray(s), Nasal, BID, 16 gram, Refill(s) 0, each nostril, [facility] ([facility] ), 167.6, cm, 08/24/22 8:10:00 EDT, Height/Length Dosing, 83.4, kg, 08/24/22 8:10:00 EDT, Weight Dosing Start Date: 08/24/22 Status: Ordered Start: 08-23-2022 Start: 04-24-2020 take 50 ug by inhala tion twice daily fluticasone propionate 50 mcg, Inhalation, BID, Refills(s) 0 Start Date: 04/24/20 Status: Ordered Fluticasone Prop ionate 50 MCG/ACT Nasal for 30 Active Comment on above: 1 Kathleen. glimepiride 2 mg oral tablet (3 sources) [...] Coronary arteriosclerosis; Translations: [Atherosclerotic heart disease of [place] coronary artery without angina pectoris] Onset: 2 [...] 04-24-2020 Chronic Other aftercare (1 source) Other detention (current) drug therapy; Translations: [OTH NURSING HOME CURRENT DRUG THERAPY] Onset: 3 Episodic Other aftercare (1 source) senior care (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; Translations: [NURSING HOME CURRENT USE OF ASPIRIN] Onset: 3 Episodic Other aftercare (1 source) senior care (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 of antithrombotics/antipl atelets; Translations: [REGULATORY ASSISTANT ANTITHROMBOT/ANTIPLATL ETS] Onset: 3 Episodic Other aftercare (1 source) senior care (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 of oral hypoglycemic drugs; Translations: [REGULATORY ASSISTANT USE ORAL HYPOGLYCEMIC DX] Onset: 3 Episodic [...] Test Name Value Interpretation Reference Range [facility] Gastroenterology Office/Clin ic Noteon 06-25-2023 Gastroenterology Office/Clinic Note Chief Complaint follow up to colon [facility] Staff This is a 82 year old male who presents today for follow-up and follow up from colonoscopy 06/14/23. History of Present Illness Patient is a 82-year-old male who presents for follow-up. Patient was previously evaluated 05/25/2023 for generalized abdominal pain. Patient also with history of COVID-19 09/2022. Patient previously reported RUQ abdominal pain for years. Patient also with history of pacemaker, CAD with stents and is currently taking Plavix. Patient was previously referred to [facility] regarding pancreatic cyst. Patient had previous EGD [...] hemorrhoids. Previous review of outside records from [facility] from 03/[address] abdomen/pelvis that revealed prominent amount of fluid in colon suggesting diarrhea, diverticulosis. Patient had previous ultrasound of RUQ 09/2019 at outside facility that revealed 0.7 cm pancreatic cyst and cholelithiasis. Patient reports history of cholecystectomy in 2019. Previous labs at outside facility [id number] revealed normal BUN, normal creatinine, normal LFTs, normal H&H. Outside record from [facility] from 04/01/2020 indicated patient had RUQ ultrasound that revealed no acute process, fatty change in liver. Ultrasound of abdomen 12/17/2022 revealed 6 mm pancreatic cyst and radiology recommended MRI with contrast or MRCP in 2 years. MRCP completed at [facility] 02/16/2023 showed 3 mm cystic lesion in pancreatic body. I recommended for patient to be referred to [facility] for further evaluation regarding pancreatic cyst and patient was referred. Previous EGD with general surgery 04/15/2023 that was normal. Biopsy of antrum revealed mild chronic inactive gastritis, negative for intestinal metaplasia, negative for H. pylori. Stool testing negative for infectious process 03/10/23. Patient was evaluated at [facility]: Dr. 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 Patient reported during visit with me that he had been having RUQ pain described as achy over the last 3 to 4 years occurring nearly every day. He also reported of oily/loose stools over the last 3 to 4 years occurring daily. Patient reported 1 capsule of fiber supplementation daily was not helping his loose stools. He also reported history of cholecystectomy in 2019. Also, indicated he was taking metformin for years. Patient was ordered a trial of Questran to evaluate for possible bile salt induced diarrhea, patient was advised to continue fiber supplementation, and to follow-up with his PCP for further evaluation of metformin with reports of abdominal discomfort/loose stools to see if medication could be adjusted or changed. Previous evaluation by patient's PCP 05/31/2023 indicated patient's metformin dose was cut in half. Colonoscopy completed 06/14/[address] Henderson revealed hemorrhoids, diverticulosis, 3 mm sessile polyp removed from ascending colon that pathology revealed was tubular adenoma, random colon biopsy revealed lymphoid aggregates within normal limits- patient to have repeat colonoscopy in 5 years- 2028. During today's visit, patient reports he is no longer having diarrhea since colonoscopy. Is currently taking fiber supplementation 1 capsule daily and is eating 3-4 prunes daily. Is currently having 1-2 formed BMs daily. Has not taken Questran related to cost of medication. Is having bloating and RUQ pain daily over the last 3-4 years. At times, RUQ pain and bloating occurs after eating. He explains if he belches or passes gas, bloating will improve. Has tried Gas-X that helps bloating and RUQ pain some. Has acid reflux 1 time a week. Is taking pantoprazole 40mg daily. Denies black/bloody stools, nausea/vomiting, fevers/chills, and denies unintentional weight loss. Denies having any other GI complaints. Review of Systems PHQ Score Initial Depression Screen Score: 0 SCORE ROS - Provider Constitutional: no fever, no chills. Skin: no Jaundice. ENMT: Yes acid reflux Respiratory: no shortness of breath. Cardiovascular: no chest pain. Gastrointestinal: no nausea, no vomiting, no diarrhea, no GI bleeding. Physical Exam Vitals & Measurements HR: 66(Peripheral) RR: 14 BP: 100/61 HT: 64 in HT: 162 cm WT: 79 kg WT: 173.8 lb BMI: 30.1 General: Well developed, well nourished, in no acute distress Head: Normocephalic/atraumati c Lungs: Normal respiratory effort and clear to ausculta (more content not included)... Normal [facility] Comment on above: Result Comment: Elec tronically Signed By: Anjali Ruby CNP\.br\Date and Time Signed: 06/25/23 12:05 EST Patient Educationon 06-25-19 Patient Education Oncology Colon Polyps Colon polyps are tissue growths inside the colon, which is part of the large intestine. They are one of the types of polyps that can grow in the body. A polyp may be a round bump or a mushroom-shaped growth. You could have one polyp or more than one. Most colon polyps are noncancerous (benign). However, some colon polyps can become cancerous over time. Finding and removing the polyps early can help prevent this. What are the causes? The exact cause of colon polyps is not known. What increases the risk? The following factors may make you more likely to develop this condition: ? Having a family history of colorectal cancer or colon polyps. ? Being older than 45 years of age. ? Being younger than 45 years of age and having a significant family history of colorectal cancer or colon polyps or a genetic condition that puts you at higher risk of getting colon polyps. ? Having inflammatory bowel disease, such as ulcerative colitis or Crohn's disease. ? Having certain conditions passed from parent to child (hereditary conditions), such as: ? Familial adenomatous polyposis (FAP). ? Galvez syndrome. ? Turcot syndrome. ? Peutz?Jeghers syndrome. ? MUTYH-associated polyposis (MAP). ? Being overweight. ? Certain lifestyle factors. These include smoking cigarettes, drinking too much alcohol, not getting enough exercise, and eating a diet that is high in fat and red meat and low in fiber. ? Having had childhood cancer that was treated with radiation of the abdomen. What are the signs or symptoms? Many times, there are no symptoms. If you have symptoms, they may include: ? Blood coming from the rectum during a bowel movement. ? Blood in the stool (feces). The blood may be bright red or very dark in color. ? Pain in the abdomen. ? A change in bowel habits, such as constipation or diarrhea. How is this diagnosed? This condition is diagnosed with a colonoscopy. This is a procedure in which a lighted, flexible scope is inserted into the opening between the buttocks (anus) and then passed into the colon to examine the area. Polyps are sometimes found when a colonoscopy is done as part of routine cancer screening tests. How is this treated? This condition is treated by removing any polyps that are found. Most polyps can be removed during a colonoscopy. Those polyps will then be tested for cancer. Additional treatment may be needed depending on the results of testing. Follow these instructions at home: Eating and drinking ? Eat foods that are high in fiber, such as fruits, vegetables, and whole grains. ? Eat foods that are high in calcium and vitamin D, such as milk, cheese, yogurt, eggs, liver, fish, and broccoli. ? Limit foods that are high in fat, such as fried foods and desserts. ? Limit the amount of red meat, precooked or cured meat, or other processed meat that you eat, such as hot dogs, sausages, shaver, or meat loaves. ? Limit sugary drinks. Lifestyle ? Maintain a healthy weight, or lose weight if recommended by your health care provider. ? Exercise every day or as told by your health care provider. ? Do not use any products that contain nicotine or tobacco, such as cigarettes, e-cigarettes, and chewing tobacco. If you need help quitting, ask your health care provider. ? Do not drink alcohol if: ? Your health care provider tells you not to drink. ? You are , may be , or are planning to become . ? If you drink alcohol: ? Limit how much you use to: ? 0?1 drink a day for women. ? 0?2 drinks a day for men. ? Know how much alcohol is in your drink. In the [place] one drink equals one 12 oz bottle of beer (355 mL), one 5 oz glass of wine (148 mL), or one 1? oz glass of hard liquor (44 mL). General instructions ? Take bnpk-hac-lasuubq and prescription medicines only as told by your health care provider. ? Keep all follow-up visits. This is important. This includes having regularly scheduled colonoscopies. Talk to your health care provider about when you need a colonoscopy. Contact a health care provider if: ? You have new or worsening bleeding during a bowel movement. ? You have new or increased blood in your stool. ? You have a change in bowel habits. ? You lose weight for no known reason. Summary ? Colon polyps are tissue growths inside the colon, which is part of the large intestine. They are one type of polyp that can grow in the body. ? Most colon polyps are noncancerous (benign), but some can become cancerous over time. ? This condition is diagnosed with a colonoscopy. ? This condition is treated by removing any polyps that are found. Most polyps can be removed during a colonoscopy. This information is not intended to replace advice given to you by your health care provider. Make sure you discuss any questions you have with your health care provider. Document Revised: 08/21/2020 D (more content not included)... Normal [facility] Reminderson 06-25-2023 Reminders - From: Anjali Ruby CNP To: Yolanda Braden; Sent: 06/25/2023 11:43:39 EST Show up: 06/25/2023 11:44:00 EST Subject: Ambulatory Reminder Reminder/Recall Colonoscopy in 2028. 06/14/2028 5 year colon recall From: Yolanda Braden To: [facility] - Reminders/Recalls; Sent: 06/25/2023 13:55:08 EST ! Show up: 04/16/2028 13:55:00 EST Due Date/Time: 05/17/2028 13:55:00 EST Normal [facility] Consultation Noteon 06-23-19 Consultation Note [id number] IFF [facility] IntraOperative Documentson 0 06-21-2023 IntraOperative Documents [id number] TIFF [facility] Postoperative Documentson Postoperative Documents [id number] TIFF [facility] Consenton 06-16-2023 Consent [id number] FF [facility] Discharge Instructionson Discharge Instructions [id number] FF [facility] Main OR Intraoperative Recor don 06-15-2023 Main OR Intraoperative Record IntraOp Document Type FT Summary Primary Physician: Inez Henderson MD Finalized Date/Time: 06/15/23 09:13:07 Pt. Name: JEREMIE BENNETT/Sex: 1940 Male Med Rec #: [id number] Physician: Inez Henderson MD Financial #: [id number] Pt. Type: O Room/Bed: / Admit/Disch: 06/14/23 12:14:38 - 06/14/23 23:59:59 Institution: Case Times FT Entry 1 Patient Times In Room 06/14/23 14:14:00 Out Room 06/14/23 14:37:00 Procedure Times Start 06/14/23 14:19:00 Stop 06/14/23 14:35:00 Anesthesia Times Start 06/14/23 14:14:00 Stop 06/14/23 14:37:00 Time at [facility] 06/14/23 14:22:00 Last Modified By: Alize Jackson RN 06/14/23 14:37:39 General Comments: 06/15/23 Chart opened to review and send charges [facility] Case Attendance FT Entry 1 Entry 2 Entry 3 Case Attendee Gordy Garcia RN, Alize Cabrera CST, Negar Campbell Role Performed Anesthesiologist Cable Splicer - Primary Scrub - Primary Forging Machine Operator Time In 06/14/23 14:14:00 06/14/23 14:14:00 06/14/23 14:14:00 Time Out 06/14/23 14:37:00 06/14/23 14:37:00 06/14/23 14:37:00 Procedure COLONOSCOPY(.) COLONOSCOPY(.) COLONOSCOPY(.) Comments Dr. Martinez supervising case Last Modified By: Renetta ESCALANTE, Alize Jackson RN, Alize Salinas RN 06/14/23 14:37:40 F 06/14/23 14:37:40 F 06/14/23 14:37:40 Entry 4 Case Attendee Beatriz CASON, Inez Funes Role Performed Surgeon - Primary Time In [...] No Time Out Gordy Garcia, Given Participants Renetta ESCALANTE, Rick Peter CST, Beatriz Espino MD, Inez Funes Time Out Complete 06/14/23 14:16:00 Outcomes Met? [...] biopsy forceps. Primary Procedure Yes Primary Surgeon Beatriz CASON, Inez Funes Start 06/14/23 14:19:00 Stop 06/14/23 14:35:00 Anesthesia [...] and tissue Entry 1 Skin Integrity Intact, [place], Warm, and Skin Abnormality No Dry Outcomes [...] 1 Procedure (more content not included)... Normal [facility] Consent for Treatmenton 05-18 Consent for Treatment [id number]#1.00T IFF Normal [facility] Discharge Instructionson Discharge Instructions JEREMIE BENNETT :1940 [...] 325 mg-50 mg-40 mg Tab) Misc Prescription ([facility] Prescription) Misc Prescription ([facility] Prescription) albuterol (Albuterol (Eqv-ProAir HFA) 90 mcg/inh inhalation aerosol) amlodipine (amLODIPine 5 mg Tab) aspirin (Aspir 81) clopidogrel (Plavix 75 mg Tab) dorzolamide ophthalmic (dorzolamide ophthalmic 2% solution) fluticasone nasal (Flonase 0.05 mg/inh Kathleen) fluticasone nasal (fluticasone Nasal 0.05 mg/inh Manzano) furosemide (furosemide 20 mg Tab) glimepiride (glimepiride [...] Event Name Event Result Pharmacy Information Other: [place], [place] Previously Scheduled Follow-Up Appointments Wednesday 1:20 PM EST With: Anjali Ruby CNP Where: [facility] Invalid Interpretation Code [address] [place] [address]- \.br\ Wednesday 1:00 PM EDT \.br\ With:\.br\ Where: [facility] Family Medicine [facility] Comment on above: Result Comment: [...] hours. Education and Follow-up: Counseled: Patient, Family. [facility] Comment on above: Result Comment: Elec tronically Signed By: Inez [place] MD\.br\Date and Time Signed: 06/14/23 14:39 EST Main OR PACU I Recordon 05-18 Main OR PACU I Record PACU Phase I Document Type FT Summary Primary Physician: Inez [place] MD Finalized Date/Time: 06/14/23 17:33:36 Pt. Name: JEREMIE BENNETT/Sex: 1940 Male Med Rec #: [id number] Physician: Inez [place] MD Financial #: [id number] Pt. Type: O Room/Bed: / Admit/Disch: 06/14/23 [...] Signed By: Colette Cooley RN 06/14/23 17:33 [facility] Main OR Preoperative Recordo n 06-14-2023 Main OR Preoperative Record Holding Area Document Type FT Summary Primary Physician: Inez [place] MD Finalized Date/Time: 06/14/23 12:48:41 Pt. Name: JEREMIE BENNETT Annabelle EchevarriaB./Sex: 1940 Male Med Rec #: [id number] Physician: Inez [place] MD Financial #: [id number] Pt. Type: O Room/Bed: / Admit/Disch: 06/14/23 [...] By: Sabine Penny RN 06/14/23 12:48 Normal [facility] Monitor Recordon 06-14-2023 Monitor Record [id number] TIFF Normal [facility] Patient Education - Texton 0 06-14-2023 Patient [...] ? neck pain Some NSAIDs are available zemr-lgf-babiczd, without the need for a prescription. However, [...] than your doctor has prescribed. Follow the bvxb-oem-ntsohzl labels and do not exceed the recommended [...] through weak (more content not included)... Normal [facility] Progress Note-Physicianon Progress Note-Physician Patient: JEREMIE BENNETT Age: 82 years Sex: Male : 1940 Associated Diagnoses: None Author: Macario Martinez Jr., DO Postoperative Information Postoperative disposition: Postoperative disposition: Home. Optimetrix number: Optimetrix number [id number]. Anesthetic utilized: General. Physical Examination Vital Signs [...] Surgery Unit, and To home ). Normal [facility] Comment on above: Result Comment: Elec tronically [...] MOUTH EVERY 6 HOURS, [facility]), 163, cm, 11/04/22 15:03:00 EDT, Height/Length Dosing, 76, kg, 11/04/22 15:03:00 EDT, Weight Dosing Flonase 0.05 mg/inh Kathleen: 1 spray(s), Nasal, BID, 16 gram, Refill(s) 0, each nostril, [facility] ), 167.6, cm, 08/24/22 8:10:00 EDT, Height/Length Dosing, 83.4, kg, 08/24/22 8:10:00 EDT, Weight Dosing amLODIPine 5 mg Tab: 5 mg = 1 tab(s), Oral, Daily, # 90 tab(s), Refills(s) 1, Pharmacy: [facility] #[id number], 163, cm, 05/31/23 10:14:00 EST, Height/Length Dosing, 80.2, kg, 05/31/23 10:14:00 EST, Weight Dosing metformin 500 mg ER Tab: 1,000 mg = 2 tab(s), Oral, Daily, # 180 tab(s), Refills(s) 0, Pharmacy: [facility] #[id number], 163, cm, 05/31/23 10:14:00 EST, Height/Length Dosing, 80.2, kg, 05/31/23 10:14:00 EST, Weight Dosing omeprazole 40 mg Cap-DR: See Instructions, TAKE 1 CAPSULE BY MOUTH DAILY, # 90 cap(s), Refills(s) 3, Pharm[facility] 163, cm, 12/15/22 12:03:00 EDT, Height/Length Dosing, 73.3, kg, 12/15/22 12:03:00 EDT, Weight Dosing rosuvastatin 10 mg Tab: See Instructions, TAKE 1 TABLET BY MOUTH DAILY, # 90 tab(s), Refills(s) 3, Pharmacy: [id number], 163, cm, 05/31/23 10:14:00 EST, Height/Length Dosing, 80.2, kg, 05/31/23 10:14:00 EST, Weight Dosing Documented Medications Documented APAP/butalbital/caffein e 325 mg-50 mg-40 mg Tab: Refill(s) 0, Headache Aspir 81: 81 mg, Oral, Daily, Refills(s) 0, Prophylaxis Metamucil: Refills(s) 0, Constipation [facility] Prescription: See Instructions, one touch ultra lancets Use to test sugars once a day [facility] Prescription: See Instructions, one touch ultra test strips test sugars once a day Multivitamin, Therapeutic w/ Minerals: Oral, Daily, Refill(s) 0, Prophylaxis Plavix 75 mg Tab: 75 mg = 1 tab(s), Oral, Daily, Refills(s) 0, Blood Thinner dorzolamide ophthalmic 2% solution: 1 drop(s), OPTH, BID, Refill(s) 0, each eye fluticasone Nasal 0.05 mg/inh Manzano: Refill(s) 0, 1 Unknown, 0 Refill(s), 1 Kathleen. furosemide 20 mg Tab: 20 mg = [...] 1 drop(s), OPTH, BID Flonase 0.05 mg/inh Kathleen 1 spray(s), Nasal, BID fluticasone Nasal 0.05 mg/inh Manzano furosemide 20 mg Tab 20 mg = [...] Multivitamin, Thera (more content not included)... Normal [facility] Comment on above: Result Comment: Elec tronically Signed By: Macario Martinez Jr., DO.marco a\Date and Time Signed: 06/14/23 12:59 EST Operative Reporton Operative Report [id number]#1.00T IFF [facility] Insurance Correspondenceon 0 06-04-2023 Insurance Correspondence [id number]#1.00 TIFF [facility] Consent for Procedure/Surger yon 06-02-2023 Consent for Procedure/Surgery [id number]#1.0 0TIFF [facility] Formson 06-01-2023 Forms [id number]#1.00TI FF [facility] Ambulatory Visit Summaryon 0 05-31-2023 Ambulatory Visit Summary SABRINAJEREMIE Annabelle :1940 Visit Date:05/31/2023 Ambulatory Visit Instructions Your Diagnosis Type 2 diabetes mellitus without complication, without long-term current use of insulin Primary hypertension Diabetic autonomic neuropathy associated with type 2 diabetes mellitus Chronic GERD BMI 30.0-30.9,adult Class 1 obesity due to excess calories in adult Former smoker Your Care Team Attending Physician - Sabino Cooper MD Primary Care Physician - Sabino Cooper MD. This Is Your Medications List amlodipine (amLODIPine 5 mg Tab) metformin (metformin 500 mg ER Tab) rosuvastatin (rosuvastatin 10 mg Tab) Contact prescribing physician if questions or concerns APAP/butalbital/caffein e (APAP/butalbital/caffei ne 325 mg-50 mg-40 mg Tab) Misc Prescription ([facility] Prescription) Misc Prescription ([facility] Prescription) albuterol (Albuterol (Eqv-ProAir HFA) 90 mcg/inh inhalation aerosol) aspirin (Aspir 81) clopidogrel (Plavix 75 mg Tab) dorzolamide ophthalmic (dorzolamide ophthalmic 2% solution) fluticasone nasal (Flonase 0.05 mg/inh Kathleen) fluticasone nasal (fluticasone Nasal 0.05 mg/inh Manzano) furosemide (furosemide 20 mg Tab) glimepiride (glimepiride [...] PM EST With: Anjali Ruby CNP Where: [facility] Invalid Interpretation Code [address] [place] [address]- \.br\ Wednesday 1:00 PM EDT \.br\ With:\.br\ Where: [facility] Medicine [facility] Family Medicine Office/Clini c Noteon 05-31-2023 Family [...] year 1101F (more content not included)... Normal [facility] Comment on above: Result Comment: Elec tronically Signed By: Sabino Cooper MD.br\Date and Time Signed: 05/31/23 10:38 EST Patient [...] 1? oz glass (more content not included)... [facility] Consultation Noteon 05-27-19 24 Consultation Note [id number]#1.00T IFF Normal [facility] Ambulatory Visit Summaryon 0 05-25-2023 Ambulatory Visit [...] 325 mg-50 mg-40 mg Tab) Misc Prescription ([facility] Prescription) Misc Prescription ([facility] Prescription) albuterol (Albuterol (Eqv-ProAir HFA) 90 mcg/inh inhalation aerosol) amlodipine (amLODIPine 5 mg Tab) aspirin (Aspir 81) clopidogrel (Plavix 75 mg Tab) dorzolamide ophthalmic (dorzolamide ophthalmic 2% solution) fluticasone nasal (Flonase 0.05 mg/inh Kathleen) fluticasone nasal (fluticasone Nasal 0.05 mg/inh Manzano) furosemide (furosemide 20 mg Tab) gabapentin (gabapentin 600 mg Tab) glimepiride (glimepiride 2 mg Tab) irbesartan (irbesartan 300 mg Tab) isosorbide mononitrate latanoprost ophthalmic latanoprost ophthalmic (latanoprost Opth 0.005% Janee) loperamide (loperamide 2 mg Tab) metformin (metformin 500 mg ER Tab) multivitamin with minerals (Multivitamin, Therapeutic w/ Minerals) omega-3 polyunsaturated fatty acids ([place]quoketa-3 Fish Oil) omeprazole (omeprazole 40 mg Cap-DR) [...] Follow-Up Appointments Wednesday 10:00 AM EST With: Sabino Cooper MD Where: [facility] Invalid Interpretation Code [address] [place] [address]- \.br\ Wednesday 1:00 PM EDT \.br\ With:\.br\ Where: [facility] Gastroenterology Office/Clin ic Noteon 05-25-2023 [...] taking Plavix. Patient was previously referred to [facility] regarding pancreatic cyst. Patient had previous EGD 05/[address] Chava that revealed clean-based ulcers in the antrum, [...] hemorrhoids. Previous review of outside records from [facility] from 03/[address] abdomen/pelvis that revealed prominent amount of fluid in colon suggesting diarrhea, diverticulosis. Patient had previous ultrasound of RUQ 09/2019 at outside facility that revealed 0.7 cm pancreatic cyst and cholelithiasis. Patient reports history of cholecystectomy in 2019. Previous labs at outside facility [address] revealed normal BUN, normal creatinine, normal LFTs, normal H&H. Outside record from [facility] from 04/01/2020 indicated patient had RUQ ultrasound that revealed no acute process, fatty change in liver. Ultrasound of abdomen 12/17/2022 revealed 6 mm pancreatic cyst and radiology recommended MRI with contrast or MRCP in 2 years. MRCP completed at [facility] 02/16/2023 showed 3 mm cystic lesion in pancreatic body. I recommended for patient to be referred to [facility] for further evaluation regarding pancreatic cyst and [...] infectious process 03/10/23. Patient was evaluated at [facility]: Dr. Pringle regarding pancreatic cyst 04/28/2023 and [...] metaplasia, sto (more content not included)... Normal [facility] Comment on above: Result Comment: Elec tronically Signed By: Anjali Ruby CNP\.marco a\Date and Time Signed: 05/25/23 12:52 EST Patient [...] grapefruit, pineapple, and nury. Vegetables Deep-fried vegetables. Kuwaiti fries. Any vegetables prepared with added fat. [...] reflux di (more content not included)... Normal [facility] Consultation Noteon 05-24-19 24 Consultation Note [id number]#1.00T IFF Normal [facility] RAD - MISCon 05-24-2023 RAD - MISC [id number]#1.00T IFF Normal [facility] Operative Reporton Operative Report [id number]#1.00T IFF Normal [facility] IntraOperative Documentson 1 06-22-2022 IntraOperative Documents [id number]#1.00 TIFF [facility] Reminderson 04-21-2023 Reminders - From: Letty Valdez To: Aleida Gonzalez; Jennifer Bishop; Letty Valdez; Sent: 12/15/2022 13:00:41 EDT Show up: 12/15/2022 12:59:00 EDT Subject: Ambulatory Reminder Due Date/Time: 01/15/2023 12:59:00 EDT Reminder/Recall Pt needs to schedule an EGD w/poss dilation and a Colonoscopy with Dr. [place] once he is able to take [facility]. Pt unable to go to [facility] due to respiratory issues. He will also need to hold his Plavix 5 days prior - his derrick builder is Dr. Arellano. He has signed a consent and it is scanned into his chart already. Ordered Plenvu and I have gone over instructions with patient and sent him home with a packet. EGD performed by Dr Powers on 04/15. Referred to [facility]. Colonoscopy was not done - last scope 2017. Normal [facility] Progress Note-Physicianon Progress Note-Physician Patient: JEREMIE BENNETT Age: 82 years Sex: Male : 1940 Associated Diagnoses: None Author: MD Gutierrez Ahmad F Postoperative Information Postoperative disposition: Postoperative disposition: To PACU. Optimetrix number: Optimetrix number [id number]. Anesthetic utilized: General. Health Status Allergies: Allergic [...] meets criteria ( To home ). Normal [facility] Comment on above: Result Comment: Elec tronically [...] MOUTH EVERY 6 HOURS, [facility]), 163, cm, 11/04/22 15:03:00 EDT, Height/Length Dosing, 76, kg, 11/04/22 15:03:00 EDT, Weight Dosing Flonase 0.05 mg/inh Kathleen: 1 spray(s), Nasal, BID, 16 gram, Refill(s) 0, each nostril, [facility] ), 167.6, cm, 08/24/22 8:10:00 EDT, Height/Length Dosing, 83.4, kg, 08/24/22 8:10:00 EDT, Weight Dosing Plenvu oral powder for reconstitution: See Instructions, 1 EA, Refill(s) 0, Prior to colonoscopy., [facility] #[id number], 163, cm, 12/15/22 12:03:00 EDT, Height/Length Dosing, [...] cap(s), Refills(s) 3, Pharmacy: [facility]), 163, cm, 12/15/22 12:03:00 EDT, Height/Length Dosing, 73.3, kg, 12/15/22 12:03:00 EDT, Weight Dosing rosuvastatin 10 mg Tab: See Instructions, TAKE 1 TABLET BY MOUTH DAILY, # 90 tab(s), Refills(s) 3, Pharmacy: [facility]), 163, cm, 11/04/22 15:03:00 EDT, [...] w/ Minerals: Oral, Daily, Refill(s) 0, Prophylaxis Maquoketa-3 Fish Oil: Oral, Daily, Refills(s) 0, Prophylaxis [...] All Problems Primary hypertension / SNOMED CT 55212145 / Confirmed Hypercholesterolemia / SNOMED CT 76675998 / Confirmed Osteoarthritis / SNOMED CT 5960551343 / Confirmed Sleep apnea / SNOMED CT 756008861 / Confirmed Vitamin D deficiency / SNOMED CT 54286541 / Confirmed GERD with apnea / SNOMED CT 5820112952 / Confirmed Diabetic autonomic neuropathy associated with type 2 diabetes mellitus / SNOMED CT 4035905011 / Confirmed Glaucoma / SNOMED CT 84649317 / Confirmed Pacemaker / SNOMED CT 0795697017 / Confirmed Type 2 diabetes mellitus without complication, without long-term current use of insulin / ICD-10-CM E11.9 / Confirmed Upper abdominal pain / SNOMED CT 531923900 / Confirmed Lower abdominal pain / SNOMED CT 14519236 / Confirmed PUD (peptic ulcer disease) / SNOMED CT 26088896 / Confirmed BMI 30.0-30.9,adult / SNOMED CT 150481073 / Confirmed Right flank pain, chronic / SNOMED CT 739388110 / Confirmed Right-sided chest wall pain / SNOMED CT 786426267 / Confirmed Personal history of prostate cancer / SNOMED CT 3948718973 / Confirmed Leaking of urine / SNOMED CT 4969365298 / Confirmed Urinary incontinence without sensory awareness / SNOMED CT 7517477080 / Confirmed Mixed incontinence / SNOMED (more content not included)... Normal [facility] Comment on above: Result Comment: Elec tronically Signed By: MD Matt, Anaya Salgado\.br\Date and Time Signed: 04/17/23 20:24 EST Consenton 04-16-2023 Consent [id number]#1.00T IFF Normal [facility] Discharge Instructionson Discharge Instructions [id number]#1.00T IFF Normal [facility] Main OR Intraoperative Recor don 04-16-2023 Main OR Intraoperative Record IntraOp Document Type FT Summary Primary Physician: Gordy Powers MD Finalized Date/Time: 04/16/23 09:59:57 Pt. Name: JEREMIE BENNETT/Sex: 1940 Male Med Rec #: [id number] Physician: Gordy Powers MD Financial #: [id number] Pt. Type: O Room/Bed: / Admit/Disch: 04/15/23 [...] Entry 2 Entry 3 Case Attendee Jose DIRECT MARKETING ANALYST, Daniel Javier, Minerva Cabrera PROJECT MANAGEMENT PROFESSIONAL, Negar Campbell Role Performed DIRECT MARKETING ANALYST Staff - Other Scrub - Primary Time [...] Sabine Tripp Role Performed Surgeon - Primary Cable Splicer - Primary Time In 04/15/23 13:08:00 04/15/23 [...] Minerva Javier, Given Participants Daniel Garcia CRNA, Rick FAYE, Gio Espino MD, Gordy [...] and tissue Entry 1 Skin Integrity Intact, [place], Warm, and Skin Abnormality No Dry Outcomes [...] Positioning Device (more content not included)... Normal [facility] Postoperative Documentson Postoperative Documents [id number]#1.00T IFF Normal [facility] Consent for Treatmenton 03-19 Consent for Treatment [id number]#1.00T IFF Normal [facility] Discharge Instructionson Discharge Instructions JEREMIE BENNETT :1940 [...] 325 mg-50 mg-40 mg Tab) Misc Prescription ([facility] Prescription) Misc Prescription ([facility] Prescription) albuterol (Albuterol (Eqv-ProAir HFA) 90 mcg/inh inhalation aerosol) amlodipine (amLODIPine 5 mg Tab) aspirin (Aspir 81) clopidogrel (Plavix 75 mg Tab) dorzolamide ophthalmic (dorzolamide ophthalmic 2% solution) fluticasone nasal (Flonase 0.05 mg/inh Kathleen) furosemide (furosemide 20 mg Tab) gabapentin (gabapentin 600 mg Tab) irbesartan (irbesartan 300 mg Tab) isosorbide mononitrate latanoprost ophthalmic loperamide (loperamide 2 mg Tab) metformin (metformin 500 mg ER Tab) multivitamin with minerals (Multivitamin, Therapeutic w/ Minerals) omega-3 polyunsaturated fatty acids ([place]quoketa-3 Fish Oil) omeprazole (omeprazole 40 mg Cap-DR) [...] Event Name Event Result Pharmacy Information Other: [place], [place] Previously Scheduled Follow-Up Appointments Wednesday 1:40 PM EST With: Anjali Ruby CNP Where: [facility] Invalid Interpretation Code [address] [place] [address]- \.br\ Wednesday 1:00 PM EDT \.br\ With:\.br\ Where: [facility] Comment on above: Result Comment: Elec tronically Signed By: Marcel ESCALANTE, Gris Araiza\.br\Date and Time Signed: 04/15/23 13:27 EST Inpatient Patient Summaryon 04-15-2023 Inpatient Patient Summary [address] [address] [facility] Clinical Discharge Instructions PERSON INFORMATION Name: JEREMIE BENNETT [facility]#:[id number] PHYSICIANS Admitting Physician: Gordy Powers MD Attending Physician: Gordy Powers MD PCP: Sabion Cooper MD Discharge Diagnosis: Comment: PATIENT EDUCATION INFORMATION Instructions: Upper Endoscopy, Adult, Care After; Endoscopy, Care After Procedure [facility] ([facility]) Medication Leaflets: Follow up: With: Address: When: Gio CASON, TC Ferrell Comments: Office will call with results. Type Location Start [facility] Follow Up [facility] 05/03/2023 1:40 PM 05/03/2023 2:00 PM Confirmed FM Open FT [place] 05/31/2023 10:00 AM 05/31/2023 10:15 AM Confirmed FM Medicare Wellness [facility] 11/08/2023 1:00 PM 11/08/2023 2:00 PM Confirmed [...] each eye. fluticasone nasal (Flonase 0.05 mg/inh Kathleen) 1 Sprays Nasal Inhalation 2 times a [...] Tab) By Mouth 2 times a day. [facility] ([facility] Prescription) one touch ultra lancets Use to test sugars once a day. [facility] ([facility] Prescription) one touch ultra test strips test sugars once a day. multivitamin with minerals (Multivitamin, Therapeutic w/ Minerals) By Mouth every day. omega-3 polyunsaturated fatty acids (Maquoketa-3 Fish Oil) By Mouth every day. omeprazole [...] Mouth 2 times a day. Comment: Catherine [facility] Main OR PACU I Recordon 03-19 Main OR PACU I Record PACU Phase I Document Type FT Summary Primary Physician: Gordy Powers MD Finalized Date/Time: 04/15/23 13:58:46 Pt. Name: JEREMIE BENNETT/Sex: 1940 Male Med Rec #: [id number] Physician: Gordy Powers MD Financial #: [id number] Pt. Type: O Room/Bed: / Admit/Disch: 04/15/23 [...] By: Gris Rod RN 04/15/23 13:58 Normal [facility] Main OR Preoperative Recordo n 04-15-2023 Main OR Preoperative Record Holding Area Document Type FT Summary Primary Physician: Gordy Powers MD Finalized Date/Time: 04/15/23 12:46:57 Pt. Name: JEREMIE BENNETT/Sex: 1940 Male Med Rec #: [id number] Physician: Gordy Powers MD Financial #: [id number] Pt. Type: O Room/Bed: / Admit/Disch: 04/15/23 [...] By: Letty Sanches RN 04/15/23 12:46 Normal [facility] Monitor Recordon 04-15-2023 Monitor Record [id number] TIFF Normal [facility] Monitor Record [id number] TIFF Normal [facility] Operative Reporton 3 Operative Report Patient: ROXANNE BENNETT Age: 82 [...] Devices/ implants: none left in place. Normal [facility] Comment on above: Result Comment: Elec tronically Signed By: Gio CASON, Gordy Rosa\.br\Date and Time Signed: 04/15/23 13:35 EST Outpatient Surgery Discharge Instructionon 04-15-2023 Outpatient Surgery Discharge Instruction [place] [address] Patient Discharge Instructions PERSON INFORMATION Name: JEREMIE BENNETT Date of : 1940 Current Date: 04/15/2023 13:32:56 PHYSICIANS Admitting Physician: Gordy Powers MD Discharge Diagnosis: JEREMIE BENNETT has been given the following list of follow-up instructions, prescriptions, and patient education materials: IF UNABLE TO CONTACT YOUR PHYSICIAN AND YOU FEEL IT IS AN EMERGENCY, GO TO THE NEAREST EMERGENCY ROOM OR CALL 911 ISABRINA RICHARD P, have received the attached patient education materials/instructions and have verbalized understanding: May we do a follow up call? Yes No I was present when discharge instructions were given Patient Signature Date Clinican/Nurse Signature _ Date Follow up: With: Address: When: Gio CASON, TC Ferrell Comments: Office will call with results. Type Location Start [facility] Follow Up [facility] 05/03/2023 1:40 PM 05/03/2023 2:00 PM Confirmed FM Open FT [facility] 05/31/2023 10:00 AM 05/31/2023 10:15 AM Confirmed FM Medicare Wellness [facility] 1:00 PM 11/08/2023 2:00 PM Confirmed Pharmacy Information: Other: [facility] You may receive a survey from [employer] asking you to rate your care experience. Your feedback is important and will help us understand what we do well and how we can improve the quality of care we provide to you, your loved ones and our community. It?s an honor to serve you. Thank you for choosing [facility] HERE ARE THE MEDICATION CHANGES THAT OCCURRED [...] each eye. fluticasone nasal (Flonase 0.05 mg/inh Kathleen) 1 Sprays Nasal Inhalation 2 times a [...] Tab) By Mouth 2 times a day. [facility] ([facility] Prescription) one touch ultra lancets Use to test sugars once a day. [facility] ([facility] Prescription) one touch ultra test strips test sugars once a day. multivitamin with minerals (Multivitamin, Therapeutic w/ Minerals) By Mouth every day. omega-3 polyunsaturated fatty acids (Maquoketa-3 Fish Oil) By Mouth every day. omeprazole [...] told. ? Follow (more content not included)... [facility] Office Visiton 04-14-2023 Follow-up visit [id number] Yaritza Bennett rd P 1940 M Date Provider Department Center 04/14/2023 Jean Paul-MARGARET ARELLANO CARD Nicolette Mosley Family History Problem Relation Age of Onset Coronary artery disease Mother Kidney disease Mother Heart failure Mother Family Status - Relation Status Age at Mother Level of Service:73887 MT OFFICE/OUTPATIENT ESTABLISHED LOW MDM 20-29 MIN Normal [facility] Consultation Noteon 04-13-20 23 Consultation Note [id number]#[id number] TIFF [facility] Physician Referralon 023 Physician Referral [id number] 022 [id number]#[id number] FF [facility] Physician Referralon 023 Physician Referral [id number] [id number] TIFF [facility] Physician Referral [id number]#1.00T IFF [facility] Itz 04-05-20[id number] SABRINAJEREMIE ([id number]) 1940 M Date Time Provider Department 04/05/23 VAISHALI PRINGLE [id number] During your visit today, we recorded the following information about you: TimLolly fernandez Lisette 04/05/2023 9:55 AM Signed Received records from [facility]. Reports for imaging listed below scanned. 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 - clopidogrel (PLAVIX) 75 mg tablet - furosemide (LASIX) 20 mg tablet Take 20 mg by mouth. - fluticasone (FLONASE) 50 mcg/actuation nasal spray 1 Kathleen. - omeprazole (PRILOSEC) 40 mg capsule Take [...] Encounter Status:Closed by LAMONTE COUCH on 04/06/23 [facility] CNOVon 04-01-2023 CNOV Office Visit ([id number] ) JEREMIE BENNETT ([id number]) 1940 Date Time Provider Department 04/01/23 1:00 PM VAISHALI PRINGLE [id number] During your visit today, we recorded the [...] (more content not included)... Normal [facility] Insurance Correspondenceon 05-29-2022 Insurance Correspondence [id number]#[id number] TIFF Normal [facility] Physician Referralon 023 Physician Referral [id number] 021 [id number] FF Normal [facility] Giardia, Direct, EIAon 03-22 G. lamblia Ag IA Ql (Stl) Negative Invalid Interpretation Code Negative [facility] Comment on above: Result Comment: Perf ormed at: [facility] [address] [place], [place] [id number] PhD Bernice Bower Performed By: #### 3 [id number], [id number], 61995702, 14082250, 30244112, 82314132 ####[facility] [address] [place] [address] O & P EXAM, ROUTINE, REFLEXo n 03-22-2023 Ova and parasites identified Concentration Nom (Stl) Comment Invalid Interpretation Code [facility] Comment on above: Result Comment: No o va, cysts, or parasites seen. One negative specimen does not rule out the possibility of a parasitic infection. Performed at: [address] [id number] PhD Bernice Bower Performed By: #### 3 [id number], [id number], 57771715, 90840425, 85494833, 18422427 ####[facility] [address] [place] [address] O & P Exam, Routineon 2022 Ova and parasites identified LM Nom (Unsp spec) Final report Invalid Interpretation Code [facility] Comment on above: Result Comment: Thes e results were obtained using wet preparation(s) and trichrome stained smear. This test does not include testing for Cryptosporidium parvum, Cyclospora, or Microsporidia. Performed at: [address] [id number] PhD Bernice Bower Performed By: #### 3 [id number], [id number], 20201488, 77271194, 06301332, 03987500 ####[address] [place] [address] Ambulatory Visit Summaryon 1 Ambulatory Visit Summary [...] 2% solution) fluticasone nasal (Flonase 0.05 mg/inh Kathleen) furosemide (furosemide 20 mg Tab) gabapentin (gabapentin 600 mg Tab) irbesartan (irbesartan 300 mg Tab) isosorbide mononitrate latanoprost ophthalmic loperamide (loperamide 2 mg Tab) metformin (metformin 500 mg ER Tab) multivitamin with minerals (Multivitamin, Therapeutic w/ Minerals) omega-3 polyunsaturated fatty acids (Maquoketa-3 Fish Oil) omeprazole (omeprazole 40 mg Cap-DR) [...] PM EST With: Anjali Ruby CNP Where: [facility] Invalid Interpretation Code [address] [place] [address]- \.br\ Wednesday 1:00 PM EDT \.br\ With:\.br\ Where: [facility] Auto Diffon 03-10-2023 Basophils/100 WBC (Bld) 0.4 % Normal 0.0-2.0 [facility] Comment on above: Order Comment: Order Added by Discern Expert. Performed By: #### 2 048701, 8524613, 5588929, 39312196 ####[facility] [address] [place] [address] Basophils/Leukocyt es Auto (Bld) [Pure # fraction] 0.0 E9/L Normal 0.0-0.2 [facility] Comment on above: Order Comment: Order Added by Discern Expert. Performed By: #### 2 821869, 3266736, 8612362, 33719535 ####[address] [place] [address] Eosinophils/100 WBC (Bld) 2.4 % Normal 0.0-8.0 [facility] Comment on above: Order Comment: Order Added by Discern Expert. Performed By: #### 2 896670, 0886208, 8067583, 61324694 ####[facility] [address] [place] [address] Eosinophils/Leukoc ytes Auto (Bld) [Pure # fraction] 0.2 E9/L Normal 0.0-0.5 [facility] Comment on above: Order Comment: Order Added by Discern Expert. Performed By: #### 2 055719, 0465881, 5844945, 47472888 ####[facility] [address] [place] [address] Lymphocytes/100 WBC (Bld) 21.9 % Normal 14.0-50.0 [facility] Comment on above: Order Comment: Order Added by Discern Expert. Performed By: #### 2 078109, 8431389, 8608690, 86255793 ####[facility] [address] [place] [address] Lymphocytes/Leukoc ytes Auto (Bld) [Pure # fraction] 1.8 E9/L Normal 1.0-4.0 [facility] Comment on above: Order Comment: Order Added by Discern Expert. Performed By: #### 2 881224, 7844891, 7177308, 27847176 ####[address] [place] [address] Monocytes/100 WBC (Bld) 6.9 % Normal 4.0-14.0 [facility] Comment on above: Order Comment: Order Added by Discern Expert. Performed By: #### 2 071449, 4071982, 0210420, 38861398 ####[address] [address] Monocytes/Leukocyt es Auto (Bld) [Pure # fraction] 0.6 E9/L Normal 0.2-1.0 [facility] Comment on above: Order Comment: Order Added by Discern Expert. Performed By: #### 2 459970, 0546816, 8142946, 16955708 ####[address] [address] Neutrophils/100 WBC (Bld) 68.4 % Normal 36.0-75.0 [facility] Comment on above: Order Comment: Order Added by Discern Expert. Performed By: #### 2 200886, 6092413, 3200214, 32475230 ####[address] [address] Neutrophils/Leukoc ytes Auto (Bld) [Pure # fraction] 5.8 E9/L Normal 2.0-7.5 [facility] Comment on above: Order Comment: Order Added by Discern Expert. Performed By: #### 2 298086, 6229551, 7498836, 16094702 ####[address] [address] CBC w/ Auto Diffon 3 Erythrocyte distribution width (RBC) [Ratio] 13.9 % Normal 10.9-14.2 [facility] Comment on above: Performed By: #### 2 786655, 2322278, 4282272, 58416506 ####[facility] [address] [place] [address] Hematocrit (Bld) [Volume fraction] 43.6 % Normal 37.7-49.0 [facility] Comment on above: Performed By: #### 2 560913, 6164956, 3349035, 02261496 ####[facility] [address] [place] [address] Hemoglobin (Bld) [Mass/Vol] 14.5 g/dL Normal 13.5-17.5 [facility] Comment on above: Performed By: #### 2 159025, 2246730, 8356087, 88206523 ####[address] [address] MCH (RBC) [Entitic mass] 30.4 pg Normal 27.0-34.0 [facility] Comment on above: Performed By: #### 2 460133, 4013458, 3244798, 29724098 ####[address] [address] MCHC (RBC) [Mass/Vol] 33.2 g/dL Normal 31.4-36.0 [facility] Comment on above: Performed By: #### 2 775799, 6822803, 0215661, 11168112 ####[address] [address] MCV (RBC) [Entitic vol] 91.7 fL Normal 80.0-100.0 [facility] Comment on above: Performed By: #### 2 121965, 6830784, 4732749, 19823033 ####[address] [place] [address] Platelet mean volume (Bld) [Entitic vol] 8.6 fL Normal 6.4-10.8 [facility] Comment on above: Performed By: #### 2 864297, 1618519, 1466818, 40690078 ####[facility] [address] [place] [address] Platelets (Bld) [#/Vol] 236.0 E9/L Normal 150.0-500.0 [facility] Comment on above: Performed By: #### 2 957570, 1009752, 9937307, 65885229 ####[facility] [address] [place] [address] RBC (Bld) [#/Vol] 4.8 E12/L Normal 4.3-5.9 [facility] Comment on above: Performed By: #### 2 953701, 5911690, 4551279, 40913058 ####[facility] [address] [place] [address] WBC corrected for nucl RBC Auto (Bld) [#/Vol] 8.4 E9/L Normal 4.0-11.0 [facility] Comment on above: Performed By: #### 2 786697, 3356215, 2562564, 83050637 ####[facility] [address] [place] [address] CDiff PCRon 03-10-2023 CDiff PCR Unable to perform te st due to consistency of stool. C. Difficile testing will only be performed on diarrheal (unformed) stool unless ileus due to C. difficile is expected. Reference: Clinical Practice Guidelines for Clostridium difficile Infection in Adults, Infection and Hospital Epidemiology September 2009, Vol 31, No 5. Normal [facility] Cdiff Specimen Acceptable Unacceptable Normal [facility] Comment on above: Performed By: #### 3 [id number], 3650888820, 88861142, 93536610, 03391372, 96488960 ####[facility] [address] [place] [address] Order Cancelled YES Normal [facility] Comment on above: Performed By: #### 3 [id number], 6416343227, 53613621, 36386663, 02223405, 76243558 ####[facility] [address] [place] [address] CHEMISTRYOrdered By: SYSTEM SYSTEM on 03-10-2023 Albumin [Mass/Vol] 4.0 g/dL Normal 3.3 - 5.0 gm/dL F [facility] Remisol Albumin/Globulin [Mass ratio] 1.2 {ratio} Normal [...] 67 mL/min/1.73 m2 Normal >=59mL/min/1.73 m2 [facility] Chem S Comment on above: Interpretive Data: [...] 3.9 mmol/L Normal 3.5 - 5.3 mmol/L [facility] Remisol Protein [Mass/Vol] 7.3 g/dL Normal 6.0 - 7.8 gm/dL F [facility] Remisol Sodium [Moles/Vol] 139 mmol/L Normal 135 - 145 mmol/L [facility] Remisol Urea nitrogen [Mass/Vol] 20 mg/dL Normal 5 - 21 mg/dL [facility] Remisol Urea nitrogen/Creatinin e [Mass ratio] 18 mg/mg Normal 10 - 20 [facility] Remisol CMPon 03-10-2023 Albumin [Mass/Vol] 4.0 g/dL Normal 3.3-5.0 [facility] Comment on above: Performed By: #### 2 854193, 7284552, 2419100, 14667610 ####[facility] [address] [place] [address] Albumin/Globulin (S) [Mass conc ratio] 1.2 Normal 1.1-2.2 [facility] Comment on above: Performed By: #### 2 433945, 8440042, 1188956, 00239341 ####[facility] [address] [place] [address] ALP [Catalytic activity/Vol] 65 Int._Unit/L Normal 21-98 [facility] Comment on above: Performed By: #### 2 025297, 4252381, 2574376, 31433634 ####[facility] [address] [place] [address] ALT No additional P-5'-P [Catalytic activity/Vol] 17 Int._Unit/L Normal 6-46 [facility] Comment on above: Performed By: #### 2 189862, 1246416, 4204246, 89315169 ####[facility] [address] [place] [address] Anion gap [Moles/Vol] 10 mmol/L Normal 6-16 [facility] Comment on above: Performed By: #### 2 912531, 5266644, 8910783, 70964115 ####[facility] [address] [place] [address] AST [Catalytic activity/Vol] 16 Int._Unit/L Normal 5-43 [facility] Comment on above: Performed By: #### 2 407935, 4778634, 3512224, 33225103 ####[facility] [address] [place] [address] Bilirubin [Mass/Vol] 0.4 mg/dL Normal 0.0-1.1 [facility] Comment on above: Performed By: #### 2 581356, 4118060, 1427652, 51228799 ####[facility] [address] [place] [address] Calcium [Mass/Vol] 9.2 mg/dL Normal 8.9-11.1 [facility] Comment on above: Performed By: #### 2 293146, 8788812, 3606679, 46696281 ####[facility] [address] [place] [address] Chloride [Moles/Vol] 108 mmol/L Normal 101-111 [facility] Comment on above: Performed By: #### 2 079822, 5294030, 1636247, 60485858 ####[facility] [address] [place] [address] CO2 [Moles/Vol] 25 mmol/L Normal 21-31 [facility] Comment on above: Performed By: #### 2 599506, 0256785, 5518011, 00046044 ####[facility] [address] [place] [address] Creatinine [Mass/Vol] 1.1 mg/dL Normal 0.5-1.3 [facility] Comment on above: Performed By: #### 2 708876, 5644757, 5287971, 96656208 ####[facility] [address] [place] [address] Globulin (S) [Mass/Vol] 3.3 g/dL Normal 1.4-4.0 [facility] Comment on above: Performed By: #### 2 874417, 1327448, 8777278, 61545160 ####[facility] [address] [place] [address] Glucose [Mass/Vol] 136 mg/dL Normal 55-199 [facility] Comment on above: Result Comment: If t his glucose result represents a fasting glucose, interpretation should refer to the following reference range: 55-99 mg/dL Performed By: #### 2 046238, 3831307, 3612252, 36189501 ####[facility] [address] [place] [address] Potassium [Moles/Vol] 3.9 mmol/L Normal 3.5-5.3 [facility] Comment on above: Performed By: #### 2 701020, 4431246, 0684305, 32275385 ####[facility] [address] [place] [address] Protein [Mass/Vol] 7.3 g/dL Normal 6.0-7.8 [facility] Comment on above: Performed By: #### 2 734809, 6285828, 9713755, 81291463 ####[facility] [address] [place] [address] Sodium [Moles/Vol] 139 mmol/L Normal 135-145 [facility] Comment on above: Performed By: #### 2 997212, 5917262, 6105824, 66812544 ####[facility] [address] [place] [address] Urea nitrogen [Mass/Vol] 20 mg/dL Normal 5-21 [facility] Comment on above: Performed By: #### 2 499902, 9540597, 3927813, 73841268 ####[facility] [address] [place] [address] Urea nitrogen/Creatinin e [Mass ratio] 18 No Units Normal 10-20 [facility] Comment on above: Performed By: #### 2 419605, 7784290, 8919323, 01501431 ####[facility] [address] [place] [address] Consent for Treatmenton 02-15 Consent for Treatment [id number] IFF Normal [facility] Enteric Panel by PCRon 03-10 C. coli+jejuni+upsali ensis DNA MICHELLE+non-probe Ql (Stl) Not detected Normal [facility] Comment on above: Result Comment: Test ing was performed utilizing reverse materials planner/production planner (RT), polymerase chain reaction (PCR), and array [...] nulcleic acid test. Performed By: #### 3 209411269, 9866390244, 28809842, 40619784, 67922783, 54091445 ####[facility] [address] [place] [address] E. coli stx1+stx2 genes MICHELLE+non-probe Ql (Stl) Negative Normal [facility] Comment on above: Performed By: #### 3 290536812, 0051882155, 04462041, 09335164, 77934251, 01364644 ####[facility] [address] [place] [address] Enteric Panel by PCR Negative Normal [facility] Enteric Panel Intrl QC Pass Normal [facility] Comment on above: Result Comment: Test ing was performed utilizing reverse materials planner/production planner (RT), polymerase chain reaction (PCR), and array [...] 1 and 2. Performed By: #### 3 650880501, 5699134141, 68368185, 36353113, 07955641, 44074988 ####[address] [place] [address] Norovirus genogroup I+II RNA MICHELLE+non-probe Ql (Stl) Not detected Normal [facility] Comment on above: Performed By: #### 3 208502294, 9707905141, 45207450, 40269094, 11131148, 16482809 ####[address] [place] [address] Rotavirus A RNA MICHELLE+non-probe Ql (Stl) Not detected Normal [facility] Comment on above: Performed By: #### 3 021505637, 3698687764, 97837908, 16232799, 50145997, 87501772 ####[facility] [address] [place] [address] S. enterica+bongori DNA MICHELLE+non-probe Ql (Stl) Not detected Normal [facility] Comment on above: Result Comment: This test result should be correlated with clinical presentations and medical history by a healthcare provider to determine its clinical significance. Performed By: #### 3 416112489, 0794208898, 15777049, 16183705, 14358515, 66284247 ####[facility] [address] [place] [address] Shigella species+EIEC invasion plasmid antigen H ipaH gene MICHELLE+non-probe Ql (Stl) Not detected Normal [facility] Comment on above: Performed By: #### 3 257277369, 1872767032, 62296166, 85628673, 91040698, 42102169 ####[facility] [address] [place] [address] V. cholerae+parahaemo lyticus+vulnificus DNA MICHELLE+non-probe Ql (Stl) Not detected Normal [facility] Comment on above: Performed By: #### 3 100104742, 2064790341, 15275199, 62971067, 36210627, 73925834 ####[facility] [address] [place] [address] Y. enterocolitica DNA MICHELLE+non-probe Ql (Stl) Not detected Normal [facility] Comment on above: Performed By: #### 3 302440966, 8846013623, 27743210, 71129178, 24429202, 03202930 ####[facility] [address] [place] [address] Fecal WBC Lactoferrinon 02-15 Fecal WBC Lactoferrin Negative Normal Negative [facility] Comment on above: Result Comment: The semi-quantitative detection of elevated levels of fecal lactoferrin is a marker for fecal leukocytes and an indication of intestinal inflammation. Performed By: #### 3 998952502, 8622151585, 98470692, 03444128, 35678134, 32697142 ####[facility] [address] [place] [address] Gastroenterology Office/Clin ic Noteon 03-10-2023 Gastroenterology Office/Clinic [...] Patient reported during most recent visit with dc 02/25/2023 that he was having RUQ pain described as sharp/achy 3-4 times a week that was worse with coughing or sneezing. He reported acid reflux was well controlled with omeprazole 40 mg daily. Patient was referred to [facility] regarding pancreatic cyst. Had discussed repeating EGD [...] Patient brought outside records from outside facility: [facility] 03/31/2020 CT A/P revealed prominent amount of fluid in colon suggesting diarrhea, diverticulosis, Patient had previous ultrasound of RUQ 09/2019 at outside facility revealed 0.7cm pancreatic cyst and cholelithiasis. Patient reports hx. cholecystectomy in 2019. Previous labs at outside facility [address] revealed normal BUN, normal creatinine, normal LFTs, normal H&H. Outside record from [facility] from 04/01/2020 indicated patient had RUQ ultrasound [...] start fiber supplementation daily. MRCP completed at [facility] 02/16/2023 showed 3 mm cystic lesion in pancreatic body. I recommended for patient to be referred to [facility] for further evaluation regarding and patient was [...] Worse aft (more content not included)... Normal [facility] Comment on above: Result Comment: Elec tronically Signed By: Flori GARZA, Anjali Omalley\francisco\Date and Time Signed: 03/10/23 09:20 EDT HEMATOLOGYOrdered [...] 33.2 g/dL Normal 31.4 - 36.0 gm/dL FT HemeAutoSS MCV (RBC) [Entitic vol] 91.7 fL Normal 80.0 - 100.0 fL FT HemeAutoSS Platelet mean volume (Bld) [Entitic vol] 8.6 fL Normal 6.4 - 10.8 fL FT HemeAutoSS Platelets (Bld) [#/Vol] 236.0 E9/L Normal 150.0 - 500.0 E9/L FT HemeAutoSS RBC (Bld) [#/Vol] 4.8 E12/L Normal 4.3 - 5.9 E12/L FT HemeAutoSS WBC corrected for nucl RBC Auto (Bld) [#/Vol] 8.4 E9/L Normal 4.0 - 11.0 E9/L FT HemeAutoSS MICRO OTHER TESTSOrdered By: Elba Felipe on 03-10-2023 Fecal WBC Lactoferrin Negative 3 (03/10/23 12:45 PM) Normal Negative [facility] Man Sero Comment on above: Interpretive Data: [...] these instructions at home: Medicines ? Take kzyx-oqt-uyvynhv and prescription medicines only as told by [...] your condition for any changes. ? Take sonw-ywf-gyurkow and prescription medicines only as told by [...] provider. Document Revised: 06/21/2020 Document Reviewed: 09/11/2019 [employer] Patient Education ? 2022 [employer] Normal [facility] eGFRon 03-10-2023 GFR/1.73 sq M.predicted among non-blacks MDRD (S/P/Bld) [Vol rate/Area] 67 mL/min/1.73 m2 Normal >=59 [facility] Comment on above: Order Comment: Order added by Discern Expert. Result Comment: Medical Affairs Director sergo kidney disease could be indicated at eGFR's of less than 60 mL/min/1.73m2. Kidney failure is indicated at less than 15 mL/min/1.73m2. Performed By: #### 2 236765, 4221215, 9368406, 58943283 ####[facility] [address] [place] [address] Physician Referralon 023 Physician Referral [id number] 006 [id number] IFF Normal [facility] Ambulatory Visit Summaryon 1 Ambulatory Visit Summary [...] 2% solution) fluticasone nasal (Flonase 0.05 mg/inh Kathleen) furosemide (furosemide 20 mg Tab) gabapentin (gabapentin 600 mg Tab) irbesartan (irbesartan 300 mg Tab) isosorbide mononitrate latanoprost ophthalmic loperamide (loperamide 2 mg Tab) metformin (metformin 500 mg ER Tab) multivitamin with minerals (Multivitamin, Therapeutic w/ Minerals) omega-3 polyunsaturated fatty acids ([place]qu[place]eta-3 Fish Oil) omeprazole (omeprazole 40 mg Cap-DR) [...] PM EST With: Anjali Ruby CNP Where: [facility] Invalid Interpretation Code [address] [place] [address]- \.br\ Wednesday 1:00 PM EDT \.br\ With:\.br\ Where: [facility] Gastroenterology Office/Clin ic Noteon 02-25-2023 Gastroenterology Office/Clinic [...] Patient brought [facility] records [facility] [facility] 03/31/2020 CT A/P revealed prominent amount of fluid in colon suggesting diarrhea, diverticulosis, Patient had previous ultrasound of RUQ 09/2019 at outside facility revealed 0.7cm pancreatic cyst and cholelithiasis. Patient reports hx. cholecystectomy in 2019. Outside record from [facility] from 04/01/2020 indicated patient had RUQ ultrasound [...] start fiber supplementation daily. MRCP completed at [facility] 02/16/2023 showed 3 mm cystic lesion in pancreatic body. I recommended for patient to be referred to [facility] for further evaluation regarding. Patient is here [...] MRCP in 2 years. MRCP completed at [facility] 02/16/2023 showed 3 mm cystic lesion in pancreatic body. I recommended for patient to be referred to [facility] for further evaluation regarding. Family history of GI cancer? paternal grandfather with stomach cancer, cousin with p (more content not included)... Normal [facility] Comment on above: Result Comment: Elec tronically [...] these instructions at home: Medicines ? Take lchw-omj-hrkbyab and prescription medicines only as told by your health care provider. ? If you were prescribed an antibiotic medicine, take it as told by your health care provider. Do not stop taking the antibiotic even if you start to feel better. Eating and drinking ? Make any diet changes as told by your health care provider. ? Work with a diet and court specialist (dietitian) to create an eating plan [...] person's throa (more content not included)... Normal [facility] RAD - MRI Reporton 3 RAD - MRI Report [id number] IFF Normal [facility] MR abdomen wo [facility] 02-17-20 23 MR abdomen wo [facility] Main [address] [address] MRI Report Signed Patient: Jeremie Bennett MR#: [id number] : 1940 Acct:[id number] Age/Sex: 82 / M ADM Date: 02/16/23 Loc: MR Room: Type: [facility] Attending Dr: Anjali Ruby TECHNICAL IMPLEMENTATION LEAD-C Copies to: Anjali Ruby CNP Ordering Provider: [...] Urias Jr., D.OAidan02/16/2023 12:22 PM Dictation Location: [place] [address] Transcribed By: [facility] 02/16/23 1222 Dictated By: Mario Urias Jr, DO 02/16/23 1220 Signed By: 02/16/23 1222 [facility] Office/Clini c Noteon 02-15-2023 Family [...] for 7 day(s), 14 tab(s), Refill(s) 0, [id number], 163, cm, 02/15/23 11:50:00 EDT, Height/Length Dosing, [...] otitis media Rig (more content not included)... [facility] Comment on above: Result Comment: Elec tronically Signed By: Yajaira Dunn\.marco a\Date and Time Signed: 02/15/23 14:43 EDT Medication Consenton 023 Medication Consent [id number] D:127 [facility] Pre-Certification Formon Pre-Certification Form [id number]#1.00C D:127 [facility] Consultation Noteon 02-02-20 Consultation Note [id number]#1.00CD :127 [facility] Consultation Noteon 01-28-20 Consultation Note [id number]#1.00C D:127 [facility] Insurance Correspondenceon 0 01-19-2023 Insurance Correspondence [id number] CD:127 [facility] Ambulatory Visit Summaryon 0 01-12-2023 Ambulatory Visit Summary JEREMIE BENNETT :1940 Visit Date:01/12/2023 Ambulatory Visit Instructions Your [...] 2% solution) fluticasone nasal (Flonase 0.05 mg/inh Kathleen) furosemide (furosemide 20 mg Tab) gabapentin (gabapentin 600 mg Tab) irbesartan (irbesartan 300 mg Tab) isosorbide mononitrate latanoprost ophthalmic loperamide (loperamide 2 mg Tab) metformin (metformin 500 mg ER Tab) multivitamin with minerals (Multivitamin, Therapeutic w/ Minerals) omega-3 polyunsaturated fatty acids ([place]-3 Fish Oil) omeprazole (omeprazole 40 mg Cap-DR) [...] AM EST [facility]: Sabino [facility] Invalid Interpretation Code [address] [place] [address]- \.br\ You Need to Schedule the Following Appointments\.br \ Follow Up with Anjali Ruby CNP When: Within 1 to 2 weeks\.br\ Comments:\.br\ Following EGD/Colonoscopy. \.br\ Where:\.br\ You Need to Complete the Following\.br\ CT Abdomen w/ Contrast, 01/12/23, Routine, Order for future visit, Transport Mode: Ambulatory, Reason: Other (please specify), Reason: Pancreatic cyst, No, Pancreatic cyst [facility] Gastroenterology Office/Clin ic Noteon 01-12-2023 Gastroenterology Office/Clinic [...] Patient brought outside records from outside facility: [facility] 03/31/2020 CT A/P revealed prominent amount of fluid in colon suggesting diarrhea, diverticulosis, Patient had previous ultrasound of RUQ 09/2019 at outside facility revealed 0.7cm pancreatic cyst and cholelithiasis. Patient reports hx. cholecystectomy in 2019. Outside record from [facility] from 04/01/2020 indicated patient had RUQ ultrasound [...] Patient brought outside records from outside facility: [facility] 03/31/2020 CT A/P revealed prominent amount of fluid in colon suggesting diarrhea, diverticulosis, Patient had previous ultrasound of RUQ 09/2019 at outside facility revealed 0.7cm pancreatic cyst and cholelithiasis. Patient reports hx. cholecystectomy in 2019. Outside record from [facility] from 04/01/2020 indicated patient had RUQ ultrasound that revealed no acute process, fatty change in liver. Ultrasound of abdomen 12/17/2022 revealed 6 mm pancreatic cyst and radiology recommended MRI with contras (more content not included)... Normal [facility] Comment on above: Result Comment: Elec tronically Signed By: Flori GARZA, Anjali Omalley\.marco a\Date and Time Signed: 01/12/23 10:00 EDT Retail - Clinical Noteon Retail - Clinical Note [id number]#1.00C D:127 Normal [facility] Physician Referralon 023 Physician Referral [id number] D:127 Normal [facility] US Abdomen, Limitedon 2022 US Abdomen, Limited [...] Moore MD Transcribed by: SHAUNNA Technologist: MADDIE [facility] Consent for Treatmenton Consent for Treatment [id number] D:127 [facility] Ambulatory Visit Summaryon 0 12-15-2022 Ambulatory Visit Summary JEREMIE BENNETT Annabelle :1940 Visit Date:12/15/2022 Ambulatory Visit Instructions Your Diagnosis RUQ pain Dysphagia Fecal urgency Hard stool FH: stomach cancer Your Care Team Attending Physician - Anjali Ruby CNP Primary Care Physician - Sabino Cooper MD. Referring Physician - Sabino Cooper MD. This [...] 2% solution) fluticasone nasal (Flonase 0.05 mg/inh Kathleen) furosemide (furosemide 20 mg Tab) gabapentin (gabapentin 600 mg Tab) irbesartan (irbesartan 300 mg Tab) isosorbide mononitrate latanoprost ophthalmic loperamide (loperamide 2 mg Tab) metformin (metformin 500 mg ER Tab) multivitamin with minerals (Multivitamin, Therapeutic w/ Minerals) omega-3 polyunsaturated fatty acids (Maquoketa-3 Fish Oil) omeprazole (omeprazole 40 mg Cap-DR) [...] With: Hermes CASON, Sabino Rosa Where: [place] [id number] \.br\ You Need to Schedule the Following Appointments\.br \ Follow Up with Anjali Ruby CNP When: Within 1 to 2 weeks\.br\ Comments:\.br\ Following EGD/Colonoscopy. \.br\ Where:\.br\ You Need to Complete the Following\.br\ US Abdomen, Limited, 12/17/22, Routine, Order for future visit, Transport Mode: Ambulatory, Reason: Abdominal pain, Reason: RUQ pain post cholecystectomy, No, RUQ pain, pp_set_radiology _subspecialty, Not Required, [facility]\.br\ Medications\.br\ What How Much When Instructions\.br \ New polyethylene glycol 3350 with electrolytes (Plenvu oral powder for reconstitution) See instructions Prior to colonoscopy. Pickup at [facility] #[id number]\.br\ Unchanged albuterol (Albuterol (Eqv-ProAir HFA) 90 mcg/ [...] Unchanged fluticasone nasal (Flonase 0.05 mg/ inh Kathleen) 1 Sprays Nasal Inhalation 2 times a [...] questions or concerns \.br\ Unchanged Misc Prescription ([facility] Prescription) See instructions one touch ultra test strips test sugars once a day Contact prescribing physician if questions or concerns \.br\ Unchanged Misc Prescription ([facility] Prescription) See instructions one touch ultra lancets Use to test sugars once a day Contact prescribing physician if questions or concerns \.br\ Unchanged multivitamin with minerals (Multivitamin, Therapeutic w/ Minerals) By Mouth Every day Contact prescribing physician if questions or concerns \.br\ Unchanged omega-3 polyunsaturated fatty acids (Maquoketa-3 Fish Oil) By Mouth Every day Contact [...] if questions or concerns \.br\ Pharmacy Information\.br\ [id number]: [address] [place], [place] [id number] [phone]\.br\ Allergies\.br\ Adhesive Bandage (Rash)\.br\ Niaspan ER (Itching)\.br\ [...] including vitamins, herbs, eye drops, creams, and szpj-dgx-phiwmgq medicines.\.br\ ? \.br\ Any problems you or [...] ice pops.\.br\ ? \.br\ Drink only patt [facility] Consent for Procedure/Surger yon 12-15-2022 Consent for Procedure/Surgery [id number] D:127 Normal [facility] Gastroenterology Office/Clin ic Noteon 12-15-2022 Gastroenterology Office/Clinic [...] Ordered: [place] (more content not included)... Normal [facility] Comment on above: Result Comment: Elec tronically Signed By: Flori GARZA, Anjali Omalley\.br\Date and Time Signed: 12/15/22 12:30 EDT Physician Referralon 023 Physician Referral [id number] D:127 Normal [facility] Lab Reportson 11-27-2022 Lab Reports [id number]#1.00C D:127 Normal [facility] Lab Reports [id number] D:127 Normal [facility] Family Medicine Office/Clini c Noteon 11-24-2022 Family [...] 5.9% Last Chronic Labs: February 2022 at [facility] History of Present Illness Jeremie Bennett is an 82-year-old male who presents today for a follow-up evaluation. The patient states that he is doing better. He felt stable yesterday, but then his stomach started bothering him again. He has an appointment with a refrigerator assembler for an EGD. His derrick builder, Dr. Arellano, did not make any changes [...] with voice recognition artificial intelligence software, specifically [employer], [employer] and or [employer]. Substitutions may have occurred due to the inherent limitations of voice recognition and artificial intelligence software. Documentation services were performed after patient or guardian consented to allow [employer] to record this visit. OSVALDO branding specialist and provider reviewed before signing. OSVALDO: [...] awareness Vi (more content not included)... Normal [facility] Comment on above: Result Comment: Elec tronically Signed By: Sabino Cooper MD\.br\Date and Time Signed: 11/24/22 12:47 EDT\.br\Electronically Co-Signed By: Tory Sifuentes\.br\Date and Time Co-Signed: 11/23/22 14:01 EDT CHEMISTRYOrdered By: Yash Shah on 11-23-2022 Albumin DL <= 20 mg/L (U) [Mass/Vol] microgram/mL Normal 0.0 - 19.0 mcg/mL [facility] Remisol Albumin Elph (U) [Mass fraction] mg/dL Invalid Interpretation Code [facility] Remisol Creatinine (U) [Mass/Vol] 15.9 mg/dL Invalid Interpretation Code [facility] Chem S U Prot/Creat Ratio [facility] Invalid Interpretation Code 0.00 - 200.00 [facility] Chem S Comment on above: Result Comment: Unab le to calculate due to Protein being less than analyzer reportable range. Orders Onlyon 11-23-2022 Orders Only [id number] Yaritza [address] P 1940 M Date Provider Department Center 11/23/2022 JOSE R MCGHEE MC [facility] Family History Problem Relation Age of Onset Coronary artery disease Mother Kidney disease Mother Heart failure Mother Family Status - Relation Status Age at Mother Normal [facility] U Microalbon 11-23-2022 Albumin DL <= 20 mg/L (U) [Mass/Vol] mg/dL Normal 0.0-19.0 [facility] Comment on above: Performed By: #### 1 [id number], [id number] ####[facility] [address] [place] [address] U Protein/Creat Ratioon 11-14 Albumin Elph (U) [Mass fraction] <6.0 Invalid Interpretation Code [facility] Comment on above: Result Comment: The reference range and other method performance specifications have not been established for this test; results should be integrated into the clinical context for interpretation. Performed By: #### 1 [id number], [id number] ####[facility] [address] [place] [address] Creatinine (U) [Mass/Vol] 15.9 mg/dL Invalid Interpretation Code [facility] Comment on above: Result Comment: The reference range and other method performance specifications have not been established for this test; results should be integrated into the clinical context for interpretation. Performed By: #### 1 [id number], [id number] ####[facility] [address] [place] [address] U Prot/Creat Ratio [facility] Invalid Interpretation Code .00-200.00 [facility] Comment on above: Result Comment: Unab le to calculate due to Protein being less than analyzer reportable range. Performed By: #### 1 [id number], [id number] ####[facility] [address] [place] [address] Consultation Noteon 11-23-19 Consultation Note [id number] D:127 Normal [facility] Family Medicine Office/Clini c Noteon 11-12-2022 Family Medicine Office/Clinic Note Chief Complaint Subsequent [facility] Wellness Visit History of Present Illness I [...] bpm SpO2 : 94 % Galileo Tucker Son Riley 11/04/2022 14:59 EDT Chief Complaint : Subsequent [facility] Visit Patient Counseled : Nutrition, Physical activity, Elevated BMI Blood Pressure Position : Sitting O2 Sat Resting/Exertion Alpha : Resting Pain Present : Yes actual or suspected pain Numeric Rating Pain Scale : 6 Primary Pain Location : Abdomen Numeric Rating Pain Score : 6 Galileo Tucker Son Riley 11/04/2022 14:00 EDT Patient Preferred Method of Communication No Preference Hearing and Vision Screening FT FT Whisper Test Comments : wears bilateral hearing aids Vision Screen Comments : wears corrective lennses, follows with Dr. Allen every 6 months CaitlinOsmintomasa Riley 11/04/2022 14:00 EDT Advance Directive FT Advance Directive : Yes Patient Wishes to Receive Further Information on Advance Directives : No Organ Donation Consent : No Galileo Tucker Son Riley 11/04/2022 14:00 EDT Procedures / Surgeries FT [...] 15:01:07 EDT Procedure Dt/Tm: 05/20/2020 ; Location: [facility] ; Provider: Oksana Saini MD; Anesthesia Minutes: [...] Never Smokeles (more content not included)... Normal [facility] Comment on above: Result Comment: Elec tronically Signed By: Hermes CASONSabino\.br\Date and Time Signed: 11/12/22 12:59 EDT\.br\Electronically Co-Signed By: Galileo Tuckerbr\Date and Time Co-Signed: 11/04/22 16:37 EDT 36on 11-11-2022 36 Please refill Normal [facility] Office Visiton 11-10-2022 Follow-up visit [id number] Yaritza [address] P 1940 M Date Provider Department Center 11/10/2022 Cordelia-JOSE R ALEXANDER CARD [facility] Family History Problem Relation Age of Onset Coronary artery disease Mother Kidney disease Mother Heart failure Mother Family Status - Relation Status Age at Mother Level of Service:42067 MT OFFICE/OUTPATIENT ESTABLISHED MOD MDM 30-39 MIN Normal [facility] PROGRESSon 11-10-2022 SARS-CoV-2 (COVID-19) RNA MICHELLE+probe [...] other systems reviewed and are negative. Normal [facility] Physician Referralon 023 Physician Referral [id number] CD:127 Normal [facility] Screenson 11-05-2022 Screens [id number] D:127 Normal [facility] Ambulatory Visit Summaryon 0 11-04-2022 Ambulatory Visit Summary JEREMIE BENNETT :1940 Visit Date:11/04/2022 Ambulatory Visit Instructions Your Diagnosis Annual visit for general adult medical examination without abnormal findings Type 2 diabetes mellitus without complication, without long-term current use of insulin Hypercholesterolemia Hypertension BMI 28.0-28.9,adult Leaking of urine Glaucoma Your Care Team Attending Physician - Sabino Cooper MD Care Physician - Sabino Cooper MD This Is Your Medications List Misc Prescription (Misc DME Prescription) Misc Prescription (Misc DME Prescription) acetaminophen-diphenhyd rAMINE (Tylenol PM) albuterol (Albuterol (Eqv-ProAir HFA) 90 mcg/inh inhalation aerosol) amlodipine (amLODIPine 5 mg Tab) aspirin (Aspir 81) clopidogrel (Plavix 75 mg Tab) dorzolamide ophthalmic (dorzolamide ophthalmic 2% solution) fluticasone nasal (Flonase 0.05 mg/inh Kathleen) furosemide (furosemide 20 mg Tab) gabapentin (gabapentin 600 mg Tab) irbesartan (irbesartan 300 mg Tab) isosorbide mononitrate latanoprost ophthalmic loperamide (loperamide 2 mg Tab) metformin (metformin 500 mg ER Tab) multivitamin with minerals (Multivitamin, Therapeutic w/ Minerals) omega-3 polyunsaturated fatty acids (Maquoketa-3 Fish Oil) omeprazole (omeprazole 40 mg Cap-DR) [...] AM EDT With: Sabino Cooper MD [facility] [address] \.br\ Medications\.br\ What How Much When Instructions\.br [...] Unchanged fluticasone nasal (Flonase 0.05 mg/ inh Kathleen) 1 Sprays Nasal Inhalation 2 times a [...] 2 times a day\.br\ Unchanged Misc Prescription (Misc DME Prescription) See instructions one touch ultra test strips test sugars once a day \.br\ Unchanged Misc Prescription (Misc DME Prescription) See instructions one touch ultra lancets Use to test sugars once a day \.br\ Unchanged multivitamin with minerals (Multivitamin, Therapeutic w/ Minerals) By Mouth Every day\.br\ Unchanged omega-3 polyunsaturated fatty acids (Maquoketa-3 Fish Oil) By Mouth Every day\.br\ Unchanged [...] ? \.br\ Place frequently used items in pktp-pq-ksakd places. Lower the shelves around your home [...] way.\.br\ ? \.br\ Do not use floor algerian or wax that makes floors slippery. If [...] well and support your feet. Wear shoes [facility] Patient Educationon 11-05-19 23 Patient Education Caregiving [...] night-lights. ? Place frequently used items in inpy-ty-lfvef places. Lower the shelves around your home [...] the way. ? Do not use floor algerian or wax that makes floors slippery. If [...] include working with a physical therapist or computer technology trainer to improve your strength, balance, and endurance. Where to find more information ? Centers for Disease Control and Prevention, [place]: www.cdc.gov ? National [place] on Aging: www.barak.nih.gov Contact a health care [...] health ca (more content not included)... Normal [facility] Family Medicine Office/Rae c Isabela 11-03-2022 Family Medicine Office/Clinic Note [...] He states he has not told his derrick builder is Dr. Arellano about his fatigue. He [...] the patient to reach out to his derrick builder for possible stress test to make sure [...] with voice recognition artificial intelligence software, specifically [employer], [employer] and or [employer]. Substitutions may have occurred due to the inherent limitations of voice recognition and artificial intelligence software. ATTESTATION: Documentation services were performed after patient or guardian consented to allow [employer] to record this visit. OSVALDO branding specialist and provider reviewed before signing. OSVALDO: [...] 1 drop(s), OPTH, BID Flonase 0.05 mg/inh Kathleen, 1 spray(s), Nasal, BID furosemide 20 mg Tab, 20 mg= 1 tab(s), Oral, Daily gabapentin 600 mg Tab, 600 mg, Oral, TID irbesartan 300 mg Tab, 300 mg= 1 tab (more content not included)... Normal [facility] Comment on above: Result Comment: Elec tronically Signed By: Sabino Cooper MD\.br\Date and Time Signed: 11/03/22 11:45 EDT\.br\Electronically Co-Signed By: Rocky Krause.br\Date and Time Co-Signed: 11/02/22 15:41 EDT RAD - MISCon 11-03-2022 RAD - MISC [id number] D:127 Normal [facility] Ambulatory Visit Summaryon 0 11-02-2022 Ambulatory Visit [...] 2% solution) fluticasone nasal (Flonase 0.05 mg/inh Kathleen) furosemide (furosemide 20 mg Tab) gabapentin (gabapentin [...] Appointments Wednesday 2:00 PM EDT With: Where: [facility] [address] [address]- \.br\ Medications\.br\ What How Much When Instructions\.br [...] Unchanged fluticasone nasal (Flonase 0.05 mg/ inh Kathleen) 1 Sprays Nasal Inhalation 2 times a [...] without sensory awareness\.br\ Vitamin D deficiency\.br\ \.br\ [facility] Consultation Noteon 10-29-19 Consultation Note [id number] D:127 Normal [facility] Family Medicine Office/Clini c Noteon 10-06-2022 Family [...] no questions/concerns: upset stomach and diarrhea Rxed [id number] twice a day from the ER History [...] Willy Montano to record this visit. OSVALDO branding specialist and provider reviewed before signing. OSVALDO: [...] 1 drop(s), OPTH, BID Flonase 0.05 mg/inh Kathleen, 1 spray(s), Nasal, BID fluticasone propionate, 50 [...] Never Smoke (more content not included)... Normal [facility] Comment on above: Result Comment: Elec tronically [...] (fluticasone propionate) fluticasone nasal (Flonase 0.05 mg/inh Kathleen) furosemide (furosemide 20 mg Tab) gabapentin (gabapentin [...] EDT With: Hermes CASON, Sabino Rosa Where: [place] [id number]- \.br\ Medications\.br\ What How Much When Instructions\.br \ New albuterol (Albuterol (Eqv-ProAir HFA) 90 mcg/ inh inhalation aerosol) 2 Puffs Inhalation Every 6 hours or cheapest alternative Pickup at [facility] )\.br\ Unchanged amlodipine (amLODIPine 5 [...] Unchanged fluticasone nasal (Flonase 0.05 mg/ inh Kathleen) 1 Sprays Nasal Inhalation 2 times a [...] ): [address] [place], [place] [id number] [phone]\.br\ Allergies\.br\ Adhesive Bandage (Rash)\.br\ Niaspan ER (Itching)\.br\ [...] without sensory awareness\.br\ Vitamin D deficiency\.br\ \.br\ [facility] CBC AUTO DIFFon 09-29-2022 BASO # 0.1 103/ul Normal 0.0-0.1 [facility] Comment on above: Performed By: #### C BC #### [facility] [address] [place] [address] [address] Ramsey Sanchez Basophils/100 WBC (Bld) 0.7 % Normal 0.2-2.0 [facility] Comment on above: Performed By: #### C BC #### [facility] [address] [place] [address] [address] Ramsey Sanchez EO # 0.2 103/ul Normal 0.0-0.7 [facility] Comment on above: Performed By: #### C BC #### [facility] [address] [place] [address] [address] Ramsey Sanchez Eosinophils/100 WBC (Bld) 1.5 % Normal 0.9-7.0 [facility] Comment on above: Performed By: #### C BC #### [facility] [address] [place] [address] Dr. Ramsey Sanchez Erythrocyte distribution width (RBC) [Ratio] 13.6 % Normal 11.0-15.0 [facility] Comment on above: Performed By: #### C BC #### [facility] Laboratory [address] [place] [address] Dr. Ramsey Sanchez Hematocrit (Bld) [Volume fraction] 43.5 % Normal 42.0-54.0 [facility] Comment on above: Performed By: #### C BC #### [facility] Laboratory [address] [place] [address] Dr. Ramsey Sanchez Hemoglobin (Bld) [Mass/Vol] 13.9 g/dL Critically low 14.0-18.0 [facility] Comment on above: Performed By: #### C BC #### [facility] Laboratory [address] [place] [address] Dr. Ramsey Sanchez IG # 0.29 10e3/ul Critically high 0.00-0.03 [facility] Comment on above: Performed By: #### C BC #### [facility] Laboratory [address] [place] [address] Dr. Ramsey Sanchez IG % 2.9 % Critically high 0.0-0.5 [facility] Comment on above: Performed By: #### C BC #### [facility] Laboratory [address] [place] [address] Dr. Ramsey Sanchez LYMPH # 2.1 103/ul Normal 1.2-3.8 [facility] Comment on above: Performed By: #### C BC #### [facility] Laboratory [address] [place] [address] Dr. Ramsey Sanchez Lymphocytes/100 WBC (Bld) 20.8 % Normal 20.5-60.0 [facility] Comment on above: Performed By: #### C BC #### [facility] Laboratory [address] [place] [address] Dr. Ramsey Sanchez MANUAL DIFF REQ NO Normal [facility] Comment on above: Performed By: #### C BC #### [facility] Laboratory [address] [address] [address] Ramsey Sanchez MCH (RBC) [Entitic mass] 29.6 pg Normal 25.9-34.0 [facility] Comment on above: Performed By: #### C BC #### [facility] Laboratory [address] [place] [address] Dr. Ramsey Sanchez MCHC (RBC) [Mass/Vol] 32.0 g/dL Normal 29.9-35.2 [facility] Comment on above: Performed By: #### C BC #### [facility] Laboratory [address] [place] [address] Dr. Ramsey Sanchez MCV (RBC) [Entitic vol] 92.6 fL Normal 80.0-94.0 [facility] Comment on above: Performed By: #### C BC #### [facility] Laboratory [address] [place] [address] Dr. Ramsey Sanchez MONO # 0.8 103/ul Normal 0.3-0.8 [facility] Comment on above: Performed By: #### C BC #### [facility] Laboratory [address] [place] [address] Dr. Ramsey Sanchez Monocytes/100 WBC (Bld) 8.3 % Normal 1.7-12.0 [facility] Comment on above: Performed By: #### C BC #### [facility] [address] [place] [address] Dr. Ramsey Sanchez NEUT # 6.5 103/ul Normal 1.4-6.5 [facility] Comment on above: Performed By: #### C BC #### [facility] Laboratory [address] [place] [address] Dr. Ramsey Sanchez Neutrophils/100 WBC (Bld) 65.8 % Normal 43.0-75.0 [facility] Comment on above: Performed By: #### C BC #### [facility] Laboratory [address] [place] [address] Dr. Ramsey Sanchez Platelet mean volume (Bld) [Entitic vol] 11.1 fL Normal 9.5-13.5 [facility] Comment on above: Performed By: #### C BC #### [facility] Laboratory [address] [place] [address] Dr. Ramsey Sanchez PLT 198 103/ul Normal 150-450 [facility] Comment on above: Performed By: #### C BC #### [facility] [address] [place] [address] Dr. Ramsey Sanchez RBC 4.70 106/ul Normal 4.70-6.10 [facility] Comment on above: Performed By: #### C BC #### [facility] [address] [place] [address] Dr. Ramsey Sanchez WBC 9.9 103/ul Normal 4.0-11.0 [facility] Comment on above: Performed By: #### C BC #### [facility] [address] [place] [address] Dr. Ramsey Sanchez ER URINE PROFILEon 3 Bilirubin Ql (U) Negative Normal NEGATIVE [facility] Comment on above: Performed By: #### E RUR #### [facility] Laboratory [address] [place] [address] Dr. Ramsey Sanchez Clarity (U) CLEAR Normal CLEAR [facility] Comment on above: Performed By: #### E RUR #### [facility] [address] [place] [address] Dr. Ramsey Sanchez Color (U) YELLOW Normal YELLOW [facility] Comment on above: Performed By: #### E RUR #### [facility] Laboratory [address] [place] [address] Dr. Ramsey IVORY A micrscopic examination will be performed if indicated. Normal [facility] Comment on above: Performed By: #### E RUR #### [facility] [address] [place] [address] Dr. Ramsey Sanchez Glucose Ql (U) Negative Normal NEGATIVE [facility] Comment on above: Performed By: #### E RUR #### [facility] [address] [place] [address] Dr. Ramsey Sanchez Hemoglobin Ql (U) Negative Normal NEGATIVE [facility] Comment on above: Performed By: #### E RUR #### [facility] [address] [place] [address] Dr. Ramsey Sanchez Ketones Ql (U) Negative Normal NEGATIVE [facility] Comment on above: Performed By: #### E RUR #### [facility] [address] [place] [address] Dr. Ramsey Sanchez LEUKOCYTES Negative Normal NEGATIVE [facility] Comment on above: Performed By: #### E RUR #### [facility] [address] [place] [address] Dr. Ramsey Sanchez Nitrite Ql (U) Negative Normal NEGATIVE [facility] Comment on above: Performed By: #### E RUR #### [facility] [address] [place] [address] Dr. Ramsey Sanchez pH (U) 5.5 [pH] Normal 5-9 [facility] Comment on above: Performed By: #### E RUR #### [facility] [address] [place] [address] Dr. Ramsey Sanchez SPEC GRAVITY 1.020 Normal 1.005-<=1.025 [facility] Comment on above: Performed By: #### E RUR #### [facility] [address] [place] [address] Dr. Ramsey Sanchez UA PROTEIN Negative Normal NEGATIVE/ TRACE [facility] Comment on above: Performed By: #### E RUR #### [facility] [address] [place] [address] Dr. Ramsey Sanchez UR MICRO IND NOT INDICATED Normal [facility] Comment on above: Performed By: #### E RUR #### [facility] [address] [place] [address] Dr. Ramsey Sanchez Urobilinogen Qn (U) 0.2 {Leatha'U}/dL Normal 0.2 - 1.0 [facility] Comment on above: Performed By: #### E RUR #### [facility] [address] [place] [address] Dr. Ramsey Sanchez LACTATE/LACTIC ACIDon 2022 Lactate [Moles/Vol] 1.7 mmol/L Normal 0.4-2.0 [facility] Comment on above: Performed By: #### L ACT #### [facility] [address] [place] [address] Dr. Ramsey Sanchez PROF 14(COMP METB)on 023 Albumin [Mass/Vol] 3.1 g/dL Critically low 3.4-5.0 [facility] Comment on above: Performed By: #### C MP, HSTROPN #### [facility] [address] [place] [address] Dr. Ramsey Sanchez Albumin/Globulin [Mass ratio] 0.8 {ratio} Normal [facility] Comment on above: Performed By: #### C LISANDRO, HSTROPN #### [facility] [address] [place] [address] Dr. Ramsey Sanchez ALP [Catalytic activity/Vol] 73 U/L Normal 46-116 [facility] Comment on above: Performed By: #### C LISANDRO, HSTROPN #### [facility] [address] [place] [address] Dr. Ramsey Sanchez ALT [Catalytic activity/Vol] 22 U/L Normal 16-63 [facility] Comment on above: Performed By: #### C LISANDRO, HSTROPN #### [facility] [address] [place] [address] Dr. Ramsey Sanchez Anion gap [Moles/Vol] 13.5 mmol/L Normal [facility] Comment on above: Performed By: #### C MP, HSTROPN #### [facility] [address] [place] [address] Dr. Ramsey Sanchez AST [Catalytic activity/Vol] 26 U/L Normal 15-37 [facility] Comment on above: Performed By: #### C MP, HSTROPN #### [facility] [address] [place] [address] Dr. Ramsey Sanchez Bilirubin [Mass/Vol] 0.4 mg/dL Normal 0.2-1.0 [facility] Comment on above: Performed By: #### C MP, HSTROPN #### [facility] [address] [address] [address] Ramsey Sanchez Calcium [Mass/Vol] 8.4 mg/dL Critically low 8.5-10.[address] [facility] Comment on above: Performed By: #### C MP, HSTROPN #### [facility] [address] [address] [address] Ramsey Sanchez Chloride [Moles/Vol] 107 mmol/L Normal 98-107 [facility] Comment on above: Performed By: #### C MP, HSTROPN #### [facility] [address] [address] [address] Ramsey Sanchez CO2 [Moles/Vol] 26.1 mmol/L Normal 21.0-32.0 [facility] Comment on above: Performed By: #### C MP, HSTROPN #### [facility] [address] [place] [address] Dr. Ramsey Sanchez Creatinine [Mass/Vol] 0.94 mg/dL Normal 0.70-1.30 [facility] Comment on above: Performed By: #### C MP, HSTROPN #### [facility] [address] [place] [address] Dr. Ramsey Sanchez EGFR-AF [place]ONG [place]ER >60 Normal >=60 [facility] Comment on above: Performed By: #### C MP, HSTROPN #### [facility] [address] [place] [address] Dr. Ramsey Sanchez EGFR-NON AF [place]ER >60 Normal >=60 [facility] Comment on above: Performed By: #### C MP, HSTROPN #### [facility] [address] [address] [address] Ramsey Sanchez Globulin (S) [Mass/Vol] 3.7 g/dL Normal [facility] Comment on above: Performed By: #### C MP, HSTROPN #### [facility] [address] [place] [address] Dr. Ramsey Sanchez Glucose [Mass/Vol] 118 mg/dL Critically high 74-106 [facility] Comment on above: Performed By: #### C MP, HSTROPN #### [facility] [address] [address] [address] Ramsey Sanchez Potassium [Moles/Vol] 3.6 mmol/L Normal 3.5-5.1 [facility] Comment on above: Performed By: #### C MP, HSTROPN #### [facility] [address] [address] [address] Ramsey Sanchez Protein [Mass/Vol] 6.8 g/dL Normal 6.4-8.2 [facility] Comment on above: Performed By: #### C MP, HSTROPN #### [facility] [address] [place] [address] Dr. Ramsey Sanchez Sodium [Moles/Vol] 143 mmol/L Normal 136-145 [facility] Comment on above: Performed By: #### C MP, HSTROPN #### [facility] [address] [place] [address] Dr. Ramsey Sanchez Urea nitrogen [Mass/Vol] 19.0 mg/dL Critically high 7.0-18.0 [facility] Comment on above: Performed By: #### C LISANDRO, HSTROPN #### [facility] [address] [address] [address] Ramsey Sanchez Urea nitrogen/Creatinin e [Mass ratio] 20.2 mg/mg Normal [facility] Comment on above: Performed By: #### C MP, HSTROPN #### [facility] [address] [place] [address] Dr. Ramsey Sanchez TROPONIN, HIGH SENSITIVITYon 09-29-2022 HSTROP 9.8 pg/mL Normal 4.0-76.1 [facility] Comment on above: Result Comment: CUT- OFF POINTS HAVE BEEN ESTABLISHED BASED ON THE FOURTH UNIVERSAL DEFINITIONS OF MYOCARDIAL INFARCTION. THE UPPER REFERENCE LIMIT (URL) OF TROPONIN, DEFINED THE 99TH PERCENTILE OF cTnI DISTRIBUTION IN A REFERENCE POPULATION, HAS BEEN CONFIRMED THE DECISION THRESHOLD FOR OR DIAGNOSIS. Performed By: #### C MP, HSTROPN #### [facility] [address] [place] [address] Dr. Ramsey Sanchez XR CHEST 1 Von [...] hardware and overlying objects out of the [id number]. Electronically authenticated by: ALANNA CARLOS Date: 2022-09-29 16:37 Normal [facility] ED Note-Physicianon 09-28-19 23 ED Note-Physician Basic [...] medications Follow-up With When Contact Information Sabino Hermes In 3 days 09/25/2022 EDT [address] [place] [address]- Business (2) Additional Instructions: Patient Education COVID-19 Attestation Patient seen and evaluated by the physician pastrycook's assistant. Attending physician was present in the emergency department and supervised care. This visit was performed by both the physician and an APC. I performed all aspects of the MDM as documented. This report was transcribed using voice recognition software. Every effort was made to ensure accuracy, however, inadvertently computerized materials planner/production planner mistakes may be present. Appropriate healthcare PPE [...] 1 drop(s), OPTH, BID Flonase 0.05 mg/inh Kathleen, 1 spray(s), Nasal, BID fluticasone propionate, 50 mcg, Inhalation, BID furosemide 20 mg Tab, 20 mg= 1 tab(s), Oral, Daily gabapentin 600 mg Tab, 600 mg, Oral, TID irbesart (more content not included)... Normal [facility] Comment on above: Result Comment: Elec tronically Signed By: Braden Stafford PA-C\.br\Date and Time Signed: 09/22/22 18:15 EDT\.br\Electronically Co-Signed By: Gordy Sánchez DO\.br\Date and Time Co-Signed: 09/27/22 07:11 EDT BNPon 09-25-2022 Natriuretic peptide B (Bld) [Mass/Vol] 720.0 pg/mL Normal <=1,800.0 [facility] Comment on above: Performed By: #### C XSTOOL #### [facility] Laboratory [address] [place] [address] Dr. Ramsey Sanchez CARDIAC RAFI ADMITon 023 CK [Catalytic activity/Vol] 198 U/L Normal 39-308 [facility] Comment on above: Performed By: #### C XSTOOL #### [facility] [address] [place] [address] Dr. Ramsey Sanchez CK.MB [Mass/Vol] 2.62 ng/mL Normal <=3.[address] [facility] Comment on above: Performed By: #### C XSTOOL #### [facility] [address] [place] [address] Dr. Ramsey Sanchez HSTROP 8.8 pg/mL Normal 4.0-76.1 [facility] Comment on above: Result Comment: CUT- OFF POINTS HAVE BEEN ESTABLISHED BASED ON THE FOURTH UNIVERSAL DEFINITIONS OF MYOCARDIAL INFARCTION. THE UPPER REFERENCE LIMIT (URL) OF TROPONIN, DEFINED THE 99TH PERCENTILE OF cTnI DISTRIBUTION IN A REFERENCE POPULATION, HAS BEEN CONFIRMED THE DECISION THRESHOLD FOR OR DIAGNOSIS. Performed By: #### C XSTOOL #### [facility] [address] [place] [address] Dr. Ramsey Sanchez MARILYN 69 ng/mL Normal 16-96 [facility] Comment on above: Performed By: #### C XSTOOL #### [facility] [address] [place] [address] Dr. Ramsey Sanchez CBC AUTO DIFFon 09-25-2022 BASO # 0.0 103/ul Normal 0.0-0.1 [facility] Comment on above: Performed By: #### C BC #### [facility] [address] [place] [address] Dr. Ramsey Sanchez Basophils/100 WBC (Bld) 0.2 % Normal 0.2-2.0 [facility] Comment on above: Performed By: #### C BC #### [facility] [address] [place] [address] Dr. Ramsey Snachez EO # 0.0 103/ul Normal 0.0-0.7 [facility] Comment on above: Performed By: #### C BC #### [facility] [address] [address] [address] Ramsey Sanchez Eosinophils/100 WBC (Bld) 0.1 % Critically low 0.9-7.0 [facility] Comment on above: Performed By: #### C BC #### [facility] [address] [place] [address] Dr. Ramsey Sanchez Erythrocyte distribution width (RBC) [Ratio] 14.0 % Normal 11.0-15.0 [facility] Comment on above: Performed By: #### C BC #### [facility] [address] [place] [address] Dr. Ramsey Sanchez Hematocrit (Bld) [Volume fraction] 45.4 % Normal 42.0-54.0 [facility] Comment on above: Performed By: #### C BC #### [facility] [address] [place] [address] Dr. Ramsey Sanchez Hemoglobin (Bld) [Mass/Vol] 14.4 g/dL Normal 14.0-18.0 [facility] Comment on above: Performed By: #### C BC #### [facility] [address] [place] [address] Dr. Ramsey Sanchez IG # 0.08 10e3/ul Critically high 0.00-0.03 [facility] Comment on above: Performed By: #### C BC #### [facility] [address] [place] [address] Dr. Ramsey Sanchez IG % 0.9 % Critically high 0.0-0.5 [facility] Comment on above: Performed By: #### C BC #### [facility] [address] [place] [address] Dr. Ramsey Sanchez LYMPH # 1.6 103/ul Normal 1.2-3.8 [facility] Comment on above: Performed By: #### C BC #### [facility] [address] [place] [address] Dr. Ramsey Sanchez Lymphocytes/100 WBC (Bld) 17.9 % Critically low 20.5-60.0 [facility] Comment on above: Performed By: #### C BC #### [facility] [address] [place] [address] Dr. Ramsey Sanchez MANUAL DIFF REQ NO Normal [facility] Comment on above: Performed By: #### C BC #### [facility] [address] [place] [address] Dr. Ramsey Sanchez MCH (RBC) [Entitic mass] 29.8 pg Normal 25.9-34.0 [facility] Comment on above: Performed By: #### C BC #### [facility] [address] [place] [address] Dr. Ramsey Sanchez MCHC (RBC) [Mass/Vol] 31.7 g/dL Normal 29.9-35.2 [facility] Comment on above: Performed By: #### C BC #### [facility] [address] [place] [address] Dr. Ramsey Sanchez MCV (RBC) [Entitic vol] 94.0 fL Normal 80.0-94.0 [facility] Comment on above: Performed By: #### C BC #### [facility] [address] [place] [address] Dr. Ramsey Sanchez MONO # 0.9 103/ul Critically high 0.3-0.8 [facility] Comment on above: Performed By: #### C BC #### [facility] [address] [place] [address] Dr. Ramsey Sanchez Monocytes/100 WBC (Bld) 9.6 % Normal 1.7-12.0 [facility] Comment on above: Performed By: #### C BC #### [facility] [address] [place] [address] Dr. Ramsey Sanchez NEUT # 6.3 103/ul Normal 1.4-6.5 [facility] Comment on above: Performed By: #### C BC #### [facility] [address] [place] [address] Dr. Ramsey Sanchez Neutrophils/100 WBC (Bld) 71.3 % Normal 43.0-75.0 [facility] Comment on above: Performed By: #### C BC #### [facility] [address] [place] [address] Dr. Ramsey Sanchez Platelet mean volume (Bld) [Entitic vol] 11.0 fL Normal 9.5-13.5 [facility] Comment on above: Performed By: #### C BC #### [facility] [address] [place] [address] Dr. Ramsey Sanchez PLT 203 103/ul Normal 150-450 [facility] Comment on above: Performed By: #### C BC #### [facility] [address] [place] [address] Dr. Ramsey Sanchez RBC 4.83 106/ul Normal 4.70-6.10 [facility] Comment on above: Performed By: #### C BC #### [facility] [address] [place] [address] Dr. Ramsey Sanchez WBC 8.9 103/ul Normal 4.0-11.0 [facility] Comment on above: Performed By: #### C BC #### [facility] [address] [place] [address] Dr. Ramsey Sanchez LACTATE/LACTIC ACIDon 2022 Lactate [Moles/Vol] 1.0 mmol/L Normal 0.4-2.0 [facility] Comment on above: Performed By: #### C BC #### [facility] [address] [place] [address] Dr. Ramsey Sanchez PROF 14(COMP METB)on 023 Albumin [Mass/Vol] 3.7 g/dL Normal 3.4-5.0 [facility] Comment on above: Performed By: #### C XSTOOL #### [facility] [address] [place] [address] Dr. Ramsey Sanchez Albumin/Globulin [Mass ratio] 0.9 {ratio} Normal [facility] Comment on above: Performed By: #### C XSTOOL #### [facility] [address] [place] [address] Dr. Ramsey Sanchez ALP [Catalytic activity/Vol] 68 U/L Normal 46-116 [facility] Comment on above: Performed By: #### C XSTOOL #### [facility] [address] [address] [address] Ramsey Sanchez ALT [Catalytic activity/Vol] 23 U/L Normal 16-63 [facility] Comment on above: Performed By: #### C XSTOOL #### [facility] [address] [address] [address] Ramsey Sanchez Anion gap [Moles/Vol] 12.6 mmol/L Normal [facility] Comment on above: Performed By: #### C XSTOOL #### [facility] [address] [address] [address] Ramsey Sanchez AST [Catalytic activity/Vol] 21 U/L Normal 15-37 [facility] Comment on above: Performed By: #### C XSTOOL #### [facility] [address] [place] [address] Dr. Ramsey Sanchez Bilirubin [Mass/Vol] 0.3 mg/dL Normal 0.2-1.0 [facility] Comment on above: Performed By: #### C XSTOOL #### [facility] [address] [place] [address] Dr. Ramsey Sanchez Calcium [Mass/Vol] 8.8 mg/dL Normal 8.5-10.1 [facility] Comment on above: Performed By: #### C XSTOOL #### [facility] [address] [place] [address] Dr. Ramsey Sanchez Chloride [Moles/Vol] 104 mmol/L Normal 98-107 [facility] Comment on above: Performed By: #### C XSTOOL #### [facility] [address] [place] [address] Dr. Ramsey Sanchez CO2 [Moles/Vol] 26.7 mmol/L Normal 21.0-32.[address] [facility] Comment on above: Performed By: #### C XSTOOL #### [facility] [address] [place] [address] Dr. Ramsey Sanchez Creatinine [Mass/Vol] 1.27 mg/dL Normal 0.70-1.30 [facility] Comment on above: Performed By: #### C XSTOOL #### [facility] [address] [address] [address] Ramsey Sanchez EGFR-AF [place]ONG [place]ER >60 Normal >=60 [facility] Comment on above: Performed By: #### C XSTOOL #### [facility] [address] [address] [address] Ramsey Sanchez EGFR-NON AF HONG KONGER 54 mL/min/1.73m2 Critically low >=60 [facility] Comment on above: Performed By: #### C XSTOOL #### [facility] [address] [address] [address] Ramsey Sanchez Globulin (S) [Mass/Vol] 3.9 g/dL Normal [facility] Comment on above: Performed By: #### C XSTOOL #### [facility] [address] [address] [address] Ramsey Sanchez Glucose [Mass/Vol] 114 mg/dL Critically high 74-106 [facility] Comment on above: Performed By: #### C XSTOOL #### [facility] [address] [address] [address] Ramsey Sanchez Potassium [Moles/Vol] 4.3 mmol/L Normal 3.5-5.1 [facility] Comment on above: Performed By: #### C XSTOOL #### [facility] [address] [address] [address] Ramsey Sanchez Protein [Mass/Vol] 7.6 g/dL Normal 6.4-8.2 [facility] Comment on above: Performed By: #### C XSTOOL #### [facility] [address] [address] [address] Ramsey Sanchez Sodium [Moles/Vol] 139 mmol/L Normal 136-145 [facility] Comment on above: Performed By: #### C XSTOOL #### [facility] [address] [address] [address] Ramsey Sanchez Urea nitrogen [Mass/Vol] 19.0 mg/dL Critically high 7.0-18.0 [facility] Comment on above: Performed By: #### C XSTOOL #### [facility] [address] [place], [place] [address] Dr. Ramsey Sanchez Urea nitrogen/Creatinin e [Mass ratio] 15.0 mg/mg Normal [facility] Comment on above: Performed By: #### C XSTOOL #### [facility] [address] [place], [place] [address] Dr. Ramsey Sanchez XR CHEST 1 Von [...] by: TRACY HIGHTOWER Date: 2022-09-24 23:29 Normal [facility] Discharge Instructionson Discharge Instructions [id number]#1.00C D:127 Normal [facility] XR Chest 2 Viewson 3 XR Chest [...] mGy = na DAP = na Normal [facility] COVID + FLU Quick Testingon 09-22-2022 SARS-CoV-2 (COVID-19) RNA MICHELLE+probe Ql (Unsp spec) Positive [facility] [employer] Other COVID + FLU Quick Testing Negative [facility] [employer] Other Consent for Treatmenton Consent for Treatment [id number]#1.00C D:127 Normal [facility] ED Clinical Summaryon 2022 ED Clinical Summary [place] [id number] ED Clinical Summary Person Information Name: JEREMIE BENNETT [facility] Age: 81 Years : 1940 Sex: Male Language: Welsh PCP: Sabino Cooper MD Marital Status: Visit [...] 09/22/2022 18:15:08 09/22/2022 18:15:08 09/22/2022 18:15:08 ADDRESS: [address] [place] [phone] PHYS DOC NOTES: MEDICAL INFORMATION: Prescriptions Given: [...] a day. fluticasone nasal (Flonase 0.05 mg/inh Kathleen) 1 Sprays Nasal Inhalation 2 times a [...] Tab) By Mouth 2 times a day. [facility] ([facility] Prescription) one touch ultra test strips test sugars once a day. [facility] Pres[facility] ([facility] Prescription) one touch ultra lancets Use [...] Follow up: With: Address: When: Sabino Cooper [address] [place] [id number] [employer] ([facility] In 3 days 09/25/2022 DIAGNOSIS: COVID-19 Normal [facility] ED Patient Summaryon 023 ED Patient Summary (Inserted Image. Lisset ble to display) [address] [address] Patient Discharge Instructions Person Information Name: JEREMIE BENNETT Age: 81 Years Arrival Date: 09/22/2022 16:21:40 Discharge Diagnosis: COVID-19 Primary Care Physician: Sabino Cooper MD Provider Information Primary Provider: Gordy Sánchez DO Advanced Jail Keeper:Braden Stafford PA-C The exam and treatment you received in the Emergency Department were for an urgent problem and are not intended as complete care. It is important that you follow up with a doctor, nurse practitioner, or physician?s pastrycook's assistant for ongoing care. If your symptoms [...] Address: When: Sabino Cooper [address] [place] [address] Business (2) In 3 days 09/25/2022 In the event that this physician does not participate in your insurance network, please consult with your insurance company to find a nearby participating provider. Patient Education Materials: COVID-19 A MESSAGE TO ALL PATIENTS REGARDING OPIOIDS PRESCRIPTION OPIOIDS: WHAT YOU NEED TO KNOW Prescription opioids can be used to help relieve cfqkoene-xr-jydykx pain and are often prescribed following a [...] be struggling with addiction, tell your health residential caregiver and ask for guidance or call [employer]?S National Helpline at 6-529-845-HELP. x Source: [place] Department of Health and Human Serv (more content not included)... Normal [facility] Transfer Inon 09-16-2022 Transfer In [id number]#1.00C D:127 Normal [facility] Formson 09-14-2022 Forms [id number] [facility] [id number]#1.00C D:127 Normal [facility] Ambulatory Visit Summaryon 0 08-24-2022 Ambulatory Visit Summary JEERMIE BENNETT :1940 Visit Date:08/24/2022 Ambulatory Visit Instructions [...] propionate) fluticasone nasal (fluticasone 0.05 mg/inh Nasal Kathleen) furosemide (furosemide 20 mg Tab) gabapentin (gabapentin [...] AM EDT [facility]: [facility] Medicine Office/Clini c Noteon 08-24-2022 Family Medicine [...] ultra soft lancets these [facility] go to [facility] History of Present Illness Jeremie Bennett [...] patient or guardian consented to allow [employer] to record this visit. OSVALDO branding specialist and provider reviewed before signing. OSVALDO: [...] qualifying da (more content not included)... Normal [facility] Comment on above: Result Comment: Elec tronically Signed By: Sabino Cooper MD\.br\Date and Time Signed: 08/24/22 14:42 EDT\.br\Electronically Co-Signed By: Leandra Zaidi\.br\Date and Time Co-Signed: 08/24/22 11:11 EDT Medication Consenton 023 Medication Consent [id number]#1.00C D:127 Normal [facility] MR ankle RT wo conon 023 MR ankle RT wo con [facility] [place] [address] MRI Report Signed Patient: Jeremie Bennett MR#: [id number] 812 : 1940 Acct:[id number] Age/Sex: 81 / M ADM Date: 08/12/22 Loc: Room: Type: [facility] Attending Dr: Alanna Hardy DPM, [place] Copies to: Alanna Hardy DPM, MS Ordering Provider: Alanna Hardy DPM, Date of Service: 08/12/22 MR/MR ankle RT wo con: M7.22, [id number] MR ankle RT wo con 08/12/2022 7:28 [...] Rafi Gordon M.D.08/12/2022 1:15 PM Dictation Location: [place] [address] Transcribed By: [facility] 08/12/22 1315 Dictated By: Rafi Gordon II, MD 08/12/22 1302 Signed By: 08/12/22 1315 [facility] MR cervical spine wo conon 0 08-12-2022 MR cervical spine wo con [facility] [place] [address] MRI Report Signed Patient: Jeremie Bennett MR#: [id number] 812 : 1940 Acct:[id number] Age/Sex: 81 / M ADM Date: 08/12/22 Loc: MR Room: Type: [facility] Attending Dr: Missy Westfall PA-C Copies to: [...] Rafi Gordon M.D.08/12/2022 1:02 PM Dictation Location: [place] [address] Transcribed By: [facility] 08/12/22 1302 Dictated By: Rafi Gordon II, MD 08/12/22 1255 Signed By: 08/12/22 1302 Normal [facility] XR pre/post mri xrayon 08-12 XR pre/post mri xray [facility] [place] [address] [place] [address] XRay Report Signed Patient: Jeremie Bennett MR#: [id number] 812 : 1940 Acct:[id number] Age/Sex: 81 / M ADM Date: 08/12/22 Loc: Room: Type: [facility] Attending Dr: Alanna Hardy DPM, MS Copies to: Alanna Hardy DPM, MS Ordering Provider: Alanna Hardy DPM, MS Date of Service: 08/12/22 XR/XR pre/post mri xray: M7.22, [id number] XR pre/post mri xray 08/12/2022 7:28 AM [...] Rafi Gordon M.D.08/12/2022 1:17 PM Dictation Location: [facility]13 Transcribed By: PERLA 08/12/22 1317 Dictated By: Rafi Gordon II, MD 08/12/22 1315 Signed By: 08/12/22 1317 Normal [facility] POINT OF CARE GLUCOSEon 07-16 Glucose [Mass/Vol] 146 mg/dL Critically high 74-106 [facility] Comment on above: Performed By: #### C XSTOOL #### [facility] [address] [place] [address] Dr. Ramsey Sanchez US ARTERY UP EXT [...] ERWIN FALCON Date: 2022-04-16 17:21 Normal [facility] LACTOFERRIN FECAL QUANTon Lactoferrin, Fecal, Quant. 1.43 ug/mL(g) Normal 0.00-7.24 [facility] Comment on above: Result Comment: . [...] (IBS). Performed By: #### C XSTOOL #### [facility] [address] [place] [address] Dr. Ramsey Sanchez CBC AUTO DIFFon 03-10-2022 BASO # 0.1 103/ul Normal 0.0-0.1 [facility] Comment on above: Performed By: #### C BC #### [facility] [address] [place] [address] Dr. Ramsey Sanchez Basophils/100 WBC (Bld) 0.9 % Normal 0.2-2.0 [facility] Comment on above: Performed By: #### C BC #### [facility] [address] [place] [address] Dr. Ramsey Sanchez EO # 0.3 103/ul Normal 0.0-0.7 [facility] Comment on above: Performed By: #### C BC #### [facility] [address] [place] [address] Dr. Ramsey Sanchez Eosinophils/100 WBC (Bld) 2.6 % Normal 0.9-7.0 [facility] Comment on above: Performed By: #### C BC #### [facility] [address] [place] [address] Dr. Ramsey Sanchez Erythrocyte distribution width (RBC) [Ratio] 13.2 % Normal 11.0-15.0 [facility] Comment on above: Performed By: #### C BC #### [facility] [address] [place] [address] Dr. Ramsey Sanchez Hematocrit (Bld) [Volume fraction] 46.1 % Normal 42.0-54.0 [facility] Comment on above: Performed By: #### C BC #### [facility] [address] [place] [address] Dr. Ramsey Sanchez Hemoglobin (Bld) [Mass/Vol] 14.5 g/dL Normal 14.0-18.0 [facility] Comment on above: Performed By: #### C BC #### [facility] [address] [place] [address] Dr. Ramsey Sanchez IG # 0.15 10e3/ul Critically high 0.00-0.03 [facility] Comment on above: Performed By: #### C BC #### [facility] [address] [place] [address] Dr. Ramsey Sanchez IG % 1.3 % Critically high 0.0-0.5 [facility] Comment on above: Performed By: #### C BC #### [facility] [address] [place] [address] Dr. Ramsey Sanchez LYMPH # 2.7 103/ul Normal 1.2-3.8 [facility] Comment on above: Performed By: #### C BC #### [facility] [address] [place] [address] Dr. Ramsey Sanchez Lymphocytes/100 WBC (Bld) 23.0 % Normal 20.5-60.0 [facility] Comment on above: Performed By: #### C BC #### [facility] [address] [place] [address] Dr. Ramsey Sanchez MANUAL DIFF REQ NO Normal [facility] Comment on above: Performed By: #### C BC #### [facility] [address] [place] [address] Dr. Ramsey Sanchez MCH (RBC) [Entitic mass] 31.0 pg Normal 25.9-34.0 [facility] Comment on above: Performed By: #### C BC #### [facility] [address] [place] [address] Dr. Ramsey Sanchez MCHC (RBC) [Mass/Vol] 31.5 g/dL Normal 29.9-35.2 [facility] Comment on above: Performed By: #### C BC #### [facility] [address] [place] [address] Dr. Ramsey Sanchez MCV (RBC) [Entitic vol] 98.5 fL Critically high 80.0-94.0 [facility] Comment on above: Performed By: #### C BC #### [facility] [address] [place] [address] Dr. Ramsey Sanchez MONO # 0.9 103/ul Critically high 0.3-0.8 [facility] Comment on above: Performed By: #### C BC #### [facility] [address] [place] [address] Dr. Ramsey Sanchez Monocytes/100 WBC (Bld) 7.4 % Normal 1.7-12.0 [facility] Comment on above: Performed By: #### C BC #### [facility] [address] [address] [address] Ramsey Sanchez NEUT # 7.6 103/ul Critically high 1.4-6.5 [facility] Comment on above: Performed By: #### C BC #### [facility] [address] [place] [address] Dr. Ramsey Sanchez Neutrophils/100 WBC (Bld) 64.8 % Normal 43.0-75.0 [facility] Comment on above: Performed By: #### C BC #### [facility] [address] [place] [address] Dr. Ramsey Sanchez Platelet mean volume (Bld) [Entitic vol] 11.5 fL Normal 9.5-13.5 [facility] Comment on above: Performed By: #### C BC #### [facility] [address] [place] [address] Dr. Ramsey Sanchez PLT 243 103/ul Normal 150-450 [facility] Comment on above: Performed By: #### C BC #### [facility] [address] [place] [address] Dr. Ramsey Sanchez RBC 4.68 106/ul Critically low 4.70-6.10 [facility] Comment on above: Performed By: #### C BC #### [facility] [address] [id number] [address] Ramsey Sanchez WBC 11.7 103/ul Critically high 4.0-11.0 [facility] Comment on above: Performed By: #### C BC #### [facility] [address] [place] [address] Dr. Ramsey Sanchez GLYCOHEMOGLOBIN A1Con 2021 ADA RECOMMENDATION SEE BELOW Normal [facility] Comment on above: Result Comment: ADA RECOMMENDED LIMIT 4.0 - 6.0 ADA THERAPEUTIC TARGET < 7.0 ACTION SUGGESTED > 7.0 Performed By: #### A 1C #### [facility] [address] [place] [address] Dr. Ramsey Sanchez Glucose [Mass/Vol] 123 mg/dL Normal [facility] Comment on above: Performed By: #### A 1C #### [facility] [address] [place] [address] Dr. Ramsey Sanchez HbA1c (Bld) [Mass fraction] 5.9 % Normal 4.5-6.2 [facility] Comment on above: Performed By: #### A 1C #### [facility] [address] [place] [address] Dr. Ramsey Sanchez LIPID PROFILEon 03-10-2022 CHOL-HDL RATIO NORM SEE BELOW Normal [facility] Comment on above: Result Comment: 3.3 - 4.4 LOW RISK 4.4 - 7.1 AVERAGE RISK 7.1 - 11.0 MODERATE RISK >11.0 HIGH RISK Performed By: #### C BC #### [facility] [address] [place] [address] Dr. Ramsey Sanchez Cholesterol [Mass/Vol] 121 mg/dL Normal <=200 [facility] Comment on above: Performed By: #### C BC #### [facility] [address] [place] [address] Dr. Ramsey Sanchez Cholesterol in HDL [Mass/Vol] 30 mg/dL Critically low 40-60 [facility] Comment on above: Performed By: #### C BC #### [facility] [address] [place] [address] Dr. Ramsey Sanchez Cholesterol in LDL [Mass/Vol] 47.6 mg/dL Normal [facility] Comment on above: Performed By: #### C BC #### [facility] [address] [place] [address] Dr. Ramsey Sanchez Cholesterol.total/ Cholesterol in HDL [Mass ratio] 4.0 {ratio} Normal [facility] Comment on above: Performed By: #### C BC #### [facility] [address] [address] [address] Ramsey Sanchez HDL NORMAL > or = 60 mg/dl - LO W CARDIOVASCULAR RISK <40 mg/dl - HIGH CARDIOVASCULAR RISK Normal [facility] Comment on above: Performed By: #### C BC #### [facility] [address] [address] [address] Ramsey Sanchez LDL CALC NORMAL SEE BELOW Normal [facility] Comment on above: Result Comment: <100 mg/dl OPTIMAL 100 - 129 mg/dl NEAR OR ABOVE OPTIMAL 130 - 159 mg/dl BORDERLINE HIGH 160 - 189 mg/dl HIGH >190 mg/dl VERY HIGH Performed By: #### C BC #### [facility] [address] [address] [address] Ramsey Sanchez Triglyceride [Mass/Vol] 217 mg/dL Critically high <=150 [facility] Comment on above: Performed By: #### C BC #### [facility] [address] [address] [address] Ramsey Sanchez VLDL CALC 43.4 mg/dL Normal [facility] Comment on above: Performed By: #### C BC #### [facility] [address] [address] [address] Ramsey Sanchez LIVER PROFILEon 03-10-2022 Albumin [Mass/Vol] 3.9 g/dL Normal 3.4-5.0 [facility] Comment on above: Performed By: #### C BC #### [facility] [address] [address] [address] Ramsey Sanchez Albumin/Globulin [Mass ratio] 1.1 {ratio} Normal [facility] Comment on above: Performed By: #### C BC #### [facility] [address] [address] [address] Ramsey Sanchez ALP [Catalytic activity/Vol] 75 U/L Normal 46-116 [facility] Comment on above: Performed By: #### C BC #### [facility] [address] [address] [address] Ramsey Sanchez ALT [Catalytic activity/Vol] 21 U/L Normal 16-63 [facility] Comment on above: Performed By: #### C BC #### [facility] [address] [address] [address] Ramsey Sanchez AST [Catalytic activity/Vol] 17 U/L Normal 15-37 [facility] Comment on above: Performed By: #### C BC #### [facility] [address] [address] [address] Ramsey Sanchez BILI, CONJUGATED 0.1 mg/dL Normal 0.0-0.2 [facility] Comment on above: Performed By: #### C BC #### [facility] [address] [address] [address] Ramsey Sanchez Bilirubin [Mass/Vol] 0.4 mg/dL Normal 0.2-1.0 [facility] Comment on above: Performed By: #### C BC #### [facility] [address] [address] [address] Ramsey Sanchez Globulin (S) [Mass/Vol] 3.5 g/dL Normal [facility] Comment on above: Performed By: #### C BC #### [facility] [address] [address] [address] Ramsey Sanchez Protein [Mass/Vol] 7.4 g/dL Normal 6.4-8.2 [facility] Comment on above: Performed By: #### C BC #### [facility] [address] [address] [address] Ramsey Sanchez MICROALBUMIN, RAND URon 10 mALB <1.3 Normal <=30.0 [facility] Comment on above: Performed By: #### M ALBR #### [facility] [address] [address] [address] Ramsey Sanchez PROF CHEM 8 (BAS METB)on Anion gap [Moles/Vol] 12.6 mmol/L Normal [facility] Comment on above: Performed By: #### C BC #### [facility] [address] [place] [address] Dr. Ramsey Sanchez Calcium [Mass/Vol] 8.9 mg/dL Normal 8.5-10.1 [facility] Comment on above: Performed By: #### C BC #### [facility] [address] [address] [address] Ramsey Sanchez Chloride [Moles/Vol] 103 mmol/L Normal 98-107 [facility] Comment on above: Performed By: #### C BC #### [facility] [address] [address] [address] Ramsey Sanchez CO2 [Moles/Vol] 28.5 mmol/L Normal 21.0-32.0 [facility] Comment on above: Performed By: #### C BC #### [facility] [address] [address] [address] Ramsey Sanchez Creatinine [Mass/Vol] 0.89 mg/dL Normal 0.70-1.30 [facility] Comment on above: Performed By: #### C BC #### [facility] [address] [place] [address] Dr. Ramsey Sanchez EGFR-AF HONG KONGER >60 Normal >=60 [facility] Comment on above: Performed By: #### C BC #### [facility] [address] [place] [address] Dr. Ramsey Sanchez EGFR-NON AF H[place]ER >60 Normal >=60 [facility] Comment on above: Performed By: #### C BC #### [facility] [address] [place] [address] Dr. Ramsey Sanchez Glucose [Mass/Vol] 102 mg/dL Normal 74-106 [facility] Comment on above: Performed By: #### C BC #### [facility] [address] [place] [address] Dr. Ramsey Sanchez Potassium [Moles/Vol] 4.1 mmol/L Normal 3.5-5.1 [facility] Comment on above: Performed By: #### C BC #### [facility] [address] [place] [address] Dr. Ramsey Sanchez Sodium [Moles/Vol] 140 mmol/L Normal 136-145 [facility] Comment on above: Performed By: #### C BC #### [facility] [address] [place] [address] Dr. Ramsey Sanchez Urea nitrogen [Mass/Vol] 16.0 mg/dL Normal 7.0-18.0 [facility] Comment on above: Performed By: #### C BC #### [facility] [address] [place] [address] Dr. Ramsey Sanchez Urea nitrogen/Creatinin e [Mass ratio] 18.0 mg/mg Normal [facility] Comment on above: Performed By: #### C BC #### [facility] [address] [place] [address] Dr. Ramsey Sanchez STOOL CULTUREon 03-10-2022 Campylobacter Culture Final report Normal [facility] Comment on above: Performed By: #### C XSTOOL #### [facility] [address] [place] [address] Dr. Ramsey Sanchez E coli Shiga Toxin EIA Negative Normal Negative [facility] Comment on above: Performed By: #### C XSTOOL #### [facility] [address] [place] [address] Dr. Ramsey Sanchez Result 1 Comment Normal [facility] Comment on above: Result Comment: No S almonella or Shigella recovered. Performed By: #### C XSTOOL #### [facility] [address] [place] [address] Dr. Ramsey Sanchez Result Comment: No C ampylobacter species isolated. Salmonella/Shigell a Screen Final report Normal [facility] Comment on above: Performed By: #### C XSTOOL #### [facility] [address] [place] [address] Dr. Ramsey Sanchez VITAMIN D 25 OHon 03-10-2022 VIT D 25-OH 40.2 ng/mL Normal [facility] Comment on above: Performed By: #### V ITAD #### [facility] [address] [place] [address] Dr. Ramsey Sanchez VIT D RANGES SEE BELOW Normal [facility] [facility] Comment on above: Result Comment: <20 ng/mL Vit D deficient 20 - <30 ng/mL Vit D insufficient 30 - 100 ng/mL Vit D sufficient >100 ng/mL Potential Toxicity Performed By: #### V ITAD #### [facility] [address] [address] [address] Ramsey Sanchez POC GLUCOSE LABon 08-31-2019 Glucose [Mass/Vol] 120 mg/dL High 70-100 [facility] Comment on above: Performed By: #### [id number] #### [facility] [address] [place] [address], [place] Glucose [Mass/Vol] 114 mg/dL High 70-100 [facility] Comment on above: Performed By: #### [id number] #### [facility] [address] [place] [address], [place] Glucose [Mass/Vol] 136 mg/dL High 70-100 [facility] Comment on above: Performed By: #### [id number] #### [facility] [address] [place] [address], [place] BASIC METABOLIC PANELon 08-15 Calcium [Mass/Vol] 9.3 mg/dL Normal 8.6-10.3 [facility] Comment on above: Performed By: #### 0 1 #### [facility] [address] [place] [address], [place] Chloride [Moles/Vol] 103 mmol/L Normal 98-107 [facility] Comment on above: Performed By: #### 0 [id number] #### [facility] [address] [place] [address], [place] CO2 [Moles/Vol] 27 mmol/L Normal 21-31 [facility] Comment on above: Performed By: #### 0 [id number] #### [facility] [address] [place] [address], [place] Creatinine [Mass/Vol] 1.04 mg/dL Normal 0.70-1.30 [facility] Comment on above: Performed By: #### 0 [id number] #### [facility] [address] [place] [address], [place] GFR/1.73 sq M predicted among blacks MDRD (S/P/Bld) [Vol rate/Area] mL/min/{1.73_m2} Normal >60 [facility] Comment on above: Result Comment: Calc ulation may not be valid for patients over 70 years Performed By: #### 0 [id number] #### [facility] [address] [place] [address], [place] GFR/1.73 sq M predicted among non-blacks MDRD (S/P/Bld) [Vol rate/Area] mL/min/{1.73_m2} Normal >60 [facility] Comment on above: Result Comment: Calc ulation may not be valid for patients over 70 years Performed By: #### 0 [id number] #### [facility] [address] [place] [address], [place] Glucose [Mass/Vol] 128 mg/dL High 70-100 [facility] Comment on above: Performed By: #### 0 [id number] #### [facility] [address] [place] [address], [place] Potassium [Moles/Vol] 4.2 mmol/L Normal 3.5-5.1 [facility] Comment on above: Performed By: #### 0 [id number] #### [facility] [address] [place] [address], [place] Sodium [Moles/Vol] 139 mmol/L Normal 136-145 [facility] Comment on above: Performed By: #### 0 [id number] #### [facility] [address] [place] [address], [place] Urea nitrogen [Mass/Vol] 20 mg/dL Normal 7-25 [facility] Comment on above: Performed By: #### 0 [id number] #### [facility] [address] [place] [address], [place] CBC COMPLETE BLOOD COUNTon 08-30-2019 Erythrocyte distribution width (RBC) [Ratio] 13.9 % Normal 11.5-15.0 [facility] Comment on above: Performed By: #### 5 [id number] #### [facility] [address] [place] [address], [facility] Hematocrit (Bld) [Volume fraction] 44.9 % Normal 39.0-50.0 [facility] Comment on above: Performed By: #### 5 [id number] #### [facility] [address] [facility] [place] [address], [facility] Hemoglobin (Bld) [Mass/Vol] 14.5 g/dL Normal 13.0-17.0 [facility] Comment on above: Performed By: #### 5 [id number] #### [facility] [address] [place] [address], [facility] MCH (RBC) [Entitic mass] 30.7 pg Normal 27.0-33.0 [facility] Comment on above: Performed By: #### 5 [id number] #### [facility] [address] [facility] [place] [address], [facility] MCHC (RBC) [Mass/Vol] 32.3 g/dL Normal 32.0-35.0 [facility] Comment on above: Performed By: #### 5 [id number] #### [facility] [address] [place] [address], [facility] MCV (RBC) [Entitic vol] 95.1 fL Normal 82.0-98.0 [facility] Comment on above: Performed By: #### 5 [id number] #### [facility] [address] [facility] [place] [address], [facility] Nucleated RBC/100 WBC (Bld) [Ratio] 0 % Normal 0-0 [facility] Comment on above: Performed By: #### 5 [id number] #### [facility] [address] [place] [address], [facility] PLAT CNT 238 10*3/uL Normal 150-400 [facility] Comment on above: Performed By: #### 5 [id number] #### [facility] [address] [facility] [place] [address], [facility] RBC (Bld) [#/Vol] 4.72 10*6/uL Normal 4.20-5.70 [facility] Comment on above: Performed By: #### 5 [id number] #### [facility] [address] [facility] [place] [address], [facility] WBC (Bld) [#/Vol] 12.83 10*3/uL High 4.00-10.60 [facility] Comment on above: Performed By: #### 5 [id number] #### [facility] [address] Cardiovascular Lab Reporton 08-30-2019 Cardiovascular Lab Report [facility] Patient Name: [facility] MR #: [id number] Physician: Margaret Arellano, Department of M.D. Medicine Service Date: 08/30/2019 Division of Birthdate: 1940 Cardiology Room #: 3AB [id number] Adult Cardiovascular Services [address] [place] [address] Cardiovascular Laboratory Report FINAL IMPRESSIONS: 1. 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 2. 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 3. 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 4. Ttco-fb-ppwsrthh disease of the left anterior descending coronary [...] Follow up with Dr. Arellano in the [place] office in the next 2 to 4 [...] left common femoral artery was obtained. A 6-Kuwaiti 11 cm sheath was inserted without difficulty. Limited femoral angiography was performed. Bilateral selective coronary angiography was performed using JL4 and JR4 catheters. After reviewing the images, it was elected to proceed with an interventional procedure. A 6-Kuwaiti XB 3.5 guide catheter was advanced over [...] conclude the procedure. Attempts to deploy a 6-[place]i MynxGrip closure device were unsuccessful. Therefore, manual [...] A Margaret Arellano M.D. Date Dict: 08/30/2019/01:09 Annabelle/Margaret Arellano M.D. Date Trans: 08/30/2019 05:00 P/emmanuelle [id number] cc: Sabino Cooper MD [address] [facility] [address] Normal [facility] POC GLUCOSE LABon 08-30-2019 Glucose [Mass/Vol] 172 mg/dL High 70-100 [facility] Comment on above: Performed By: #### [id number] #### [facility] [address] [place] [address], [facility] Glucose [Mass/Vol] 138 mg/dL High 70-100 [facility] Comment on above: Performed By: #### [id number] #### [facility] [address] [place] [address], [facility] Vital Signs Date Time Vital Sign Value Performing Clinician Facility 05-31-2023 13:30-0500 Body height 167.64 cm Gisele Brunson Other [facility] Other 05-31-2023 13:30-0500 Body mass index (BMI) [Ratio] 27.6 kg/m2 Gisele Brunson Other [facility] Other 05-31-2023 13:30-0500 Body weight 77.57 kg Gisele Brunson Other [facility] Other 05-31-2023 13:30-0500 Diastolic blood pressure 55 mm[Hg] Gisele Brunson Other [facility] Other 05-31-2023 13:30-0500 SaO2% (BldA) [Mass fraction] 94 % Gisele Brunson Other [facility] Other 05-31-2023 13:30-0500 Systolic blood pressure 104 mm[Hg] Gisele Brunson Other [facility] Other 05-25-2023 12:21-0500 Blood Pressure Location Anjali Ruby [facility] 05-25-2023 12:21-0500 Diastolic blood pressure 65 mm[Hg] Anjali Staffordmetz [facility] 05-25-2023 12:21-0500 Heart rate 88 /min Anjali Rodriguezz [facility] 05-25-2023 12:21-0500 Respiratory rate 16 /min Anjali Rodriguezz [facility] 05-25-2023 12:21-0500 Systolic blood pressure 113 mm[Hg] Anjali Staffordmetz [facility] 04-01-2023 13:15-0500 Body temperature 97.11 [degF] Vaishali Pringle MD Work Phone: [facility] 04-01-2023 13:15-0500 Body weight 75.75 kg Vaishali Pringle MD Work Phone: [facility] 04-01-2023 13:15-0500 Diastolic blood pressure 66 mm[Hg] Vaishali Pringle MD Work Phone: [facility] 04-01-2023 13:15-0500 Heart rate 70 /min Vaishali Pringle MD Work Phone: [facility] 04-01-2023 13:15-0500 SaO2% (BldA) [Mass fraction] 97 % Vaishali Pringle MD Work Phone: [facility] 04-01-2023 13:15-0500 Systolic blood pressure 109 mm[Hg] Vaishali Pringle MD Work Phone: [facility] 03-10-2023 08:53-0400 Blood Pressure Location Anjali Flori [facility] 03-10-2023 08:53-0400 Body temperature 97.16 [degF] Anjali Ruby [facility] 03-10-2023 08:53-0400 Diastolic blood pressure 72 mm[Hg] Anjalijane StaffordFlori [facility] 03-10-2023 08:53-0400 Heart rate 63 /min Anjali Flori [facility] 03-10-2023 08:53-0400 Systolic blood pressure 117 mm[Hg] Anjalijane StaffordFlori [facility] 02-25-2023 13:27-0400 Blood Pressure Location Anjalijane StaffordFlori [facility] 02-25-2023 13:27-0400 Body temperature 98.06 [degF] Anjali Staffordmetz [facility] 02-25-2023 13:27-0400 Diastolic blood pressure 75 mm[Hg] Anjalijane StaffordFlori [facility] 02-25-2023 13:27-0400 Heart rate 85 /min Anjali Staffordmetz [facility] 02-25-2023 13:27-0400 Respiratory rate 16 /min Anjali Staffordmetz [facility] 02-25-2023 13:27-0400 Systolic blood pressure 122 mm[Hg] Anjali Flori [facility] 01-29-2023 10:15-0400 Body height 167.64 cm [employer] Other [facility] Other 01-29-2023 10:15-0400 Body mass index (BMI) [Ratio] 28.24 kg/m2 Gisele Brunson Other [facility] Other 01-29-2023 10:15-0400 Body weight 79.38 kg Gisele Brunson Other [facility] Other 01-29-2023 10:15-0400 Diastolic blood pressure 75 mm[Hg] Gisele Brunson Other [facility] Other 01-29-2023 10:15-0400 SaO2% (BldA) [Mass fraction] 95 % Gisele Brunson Other [facility] Other 01-29-2023 10:15-0400 Systolic blood pressure 118 mm[Hg] Gisele Brunson Other [facility] Other 01-12-2023 09:22-0400 Blood Pressure Location Anjali Ruby [facility] 01-12-2023 09:22-0400 Body temperature 96.98 [degF] Anjali Ruby [facility] 01-12-2023 09:22-0400 Diastolic blood pressure 68 mm[Hg] Anjali Ruby [facility] 01-12-2023 09:22-0400 Heart rate 69 /min Anjali Ruby [facility] 01-12-2023 09:22-0400 Systolic blood pressure 109 mm[Hg] Anjali Ruby [facility] 10-13-2022 09:45-0400 Body height 167.64 cm Gisele Brunson Other [facility] Other 10-13-2022 09:45-0400 Body mass index (BMI) [Ratio] 27.92 kg/m2 Gisele Brunson Other [facility] Other 10-13-2022 09:45-0400 Body weight 78.47 kg Gisele Brunson Other [facility] Other 10-13-2022 09:45-0400 Diastolic blood pressure 70 mm[Hg] Gisele Brunson Other [facility] Other 10-13-2022 09:45-0400 SaO2% (BldA) [Mass fraction] 95 % Gisele Brunson Other [facility] Other 10-13-2022 09:45-0400 Systolic blood pressure 116 mm[Hg] Gisele Brunson Other [facility] Other 09-22-2022 18:14-0400 Body temperature 99.86 [degF] Gordy Sánchez [facility] 09-22-2022 16:28-0400 Body temperature 101.3 [degF] Gordy Sánchez [facility] 09-22-2022 16:28-0400 Diastolic blood pressure 61 mm[Hg] Gordy Romane [facility] 09-22-2022 16:28-0400 Heart rate 79 /min Gordy Romane [facility] 09-22-2022 16:28-0400 Respiratory rate 17 /min Gordy Romane [facility] 09-22-2022 16:28-0400 SaO2% (BldA) [Mass fraction] 93 % Gordy Romane [facility] 09-22-2022 16:28-0400 Systolic blood pressure 111 mm[Hg] Gordy Romane [facility] 09-22-2022 14:10-0400 Body height 167.64 cm Griselda Pennington Other [facility] Other 09-22-2022 14:10-0400 Body mass index (BMI) [Ratio] 29.7 kg/m2 Griselda Murphymond Other [facility] Other 09-22-2022 14:10-0400 Body temperature 100 [degF] Griselda Pennington Other [facility] Other 09-22-2022 14:10-0400 Body weight 83.46 kg Griselda Pennington Other [facility] Other 09-22-2022 14:10-0400 Respiratory rate 18 /min Griselda Pennington Other [facility] Other 09-22-2022 14:10-0400 SaO2% (BldA) [Mass fraction] 93 % Griselda Pennington Other [facility] Other 07-29-2022 10:15-0400 Body height 167.64 cm Erwin Salazar Other [facility] Other 07-29-2022 10:15-0400 Body mass index (BMI) [Ratio] 30.02 kg/m2 Erwin Salazar Other [facility] Other 07-29-2022 10:15-0400 Body weight 84.37 kg Erwin Salazar Other [facility] Other 07-29-2022 10:15-0400 Diastolic blood pressure 65 mm[Hg] Erwin Salazar Other [facility] Other 07-29-2022 10:15-0400 SaO2% (BldA) [Mass fraction] 94 % Erwin Salazar Other [facility] Other 07-29-2022 10:15-0400 Systolic blood pressure 102 mm[Hg] Erwin Salazar Other [facility] Other 11-29-2021 10:25-0400 Body height 167.64 cm Leti Eatonault Other [facility] Other 11-29-2021 10:25-0400 Body temperature 96.9 [degF] Leti Eatonault Other [facility] Other 11-29-2021 10:25-0400 Respiratory rate 18 /min Leti Eatonault Other [facility] Other 11-29-2021 10:25-0400 SaO2% (BldA) [Mass fraction] 93 % Leti Eatonault Other [facility] Other Encounters Encounter Date Encounter Type Care Provider Facility Start: 11-08-2023 ambulatory Sabino Cooper Facility :[facility] Start: 09-16-2023 ambulatory Anjali Jiménezi ty:Malissa Start: 08-30-2023 [facility]ulatory [facility] Start: 06-25-2023 End: 06-26-2023 ambulatory Anjali Ruby Facility:[facility] Start: 06-14-2023 End: 06-15-2023 ambulatory Inez Henderson Facility:[facility] Start: 05-31-2023 End: 05-31-2023 ambulatory Gisele Brunson Facility:[facility] Start: 05-31-2023 Office outpatient visit 25 minutes Gisele Brunson [facility] Start: 05-31-2023 End: 05-31-2023 ambulatory MD Sabino Cooper Work Phone: [facility] Work Phone: Start: 05-31-2023 End: 05-31-2023 Patient encounter procedure MD Sabino Cooper Work Phone: [facility] Work Phone: Start: 05-31-2023 End: 06-01-2023 ambulatory Sabino Cooper Facility:[facility] Jasmin eyad Start: 05-25-2023 End: 05-26-2023 ambulatory Anjali Ruby Facility:[facility] Start: 05-25-2023 End: 05-25-2023 Patient encounter procedure Anjali Ruby [facility] Start: 05-25-2023 End: 05-25-2023 ambulatory [facility] Start: 04-15-2023 End: 04-16-2023 ambulatory Gordy Powers Facility:[facility] Start: 04-14-2023 End: 04-14-2023 ambulatory [facility] Start: 04-05-2023 Telephone encounter Vaishali orr MD Work Phone: General Surgery Comment on above: Received Outside Med [facility] Records Start: 04-01-2023 End: 04-01-2023 ambulatory VAISHALI PRINGLE Facility:[facility] Start: 04-01-2023 End: 04-01-2023 Patient encounter procedure Vaishali Pringle MD Work Phone: General Surgery Comment on above: IPMN (intraductal pa pillary mucinous neoplasm) (Primary Dx) Start: 03-10-2023 End: 03-11-2023 ambulatory Anjali Ruby Facility:[facility] Start: 03-10-2023 End: 03-11-2023 ambulatory Anjali Ruby Facility:[facility] Start: 03-10-2023 End: 03-10-2023 Patient encounter procedure Anjali Ruby [facility] Start: 03-10-2023 End: 03-10-2023 Patient encounter procedure Anjali Ruby [facility] Start: 02-25-2023 End: 02-26-2023 ambulatory Anjali Ruby Facility:[facility] Start: 02-25-2023 End: 02-25-2023 Patient encounter procedure Anjali Ruby [facility] Start: 02-16-2023 End: 02-16-2023 ambulatory Sabino Cooper Facility:[facility] Start: 02-16-2023 End: 02-16-2023 ambulatory MD Sabino Cooper Work Phone: [facility] Work Phone: Start: 02-16-2023 End: 02-16-2023 Patient encounter procedure MD Sabino Cooper Work Phone: [facility] [place] Work Phone: Start: 02-15-2023 End: 02-16-2023 ambulatory Yajaira Roque Facility:[facility] [place] [facility] Start: 01-29-2023 Office outpatient visit 25 minutes [facility] Start: 01-29-2023 End: 01-29-2023 ambulatory MD Sabino Cooper Work Phone: [facility] Work Phone: Start: 01-29-2023 End: 01-29-2023 Patient encounter procedure MD Sabino Cooper Work Phone: [facility] Work Phone: Start: 01-27-2023 End: 01-27-2023 ambulatory Inez Henderson Facility:[id number] Start: 01-27-2023 End: 01-27-2023 ambulatory MD Sabino Cooper Work Phone: [facility] Work Phone: Start: 01-27-2023 End: 01-27-2023 Patient encounter procedure MD Sabino Cooper Work Phone: [facility]Pacemaker Check Start: 01-12-2023 End: 01-13-2023 ambulatory Anjali Ruby [facility] Start: 01-12-2023 End: 01-12-2023 Patient encounter procedure Anjali Ruby [facility] Start: 12-17-2022 End: 12-18-2022 ambulatory Anjalijane Ruby Facility:[facility] Start: 12-17-2022 End: 12-17-2022 Patient encounter procedure Anjali Ruby [facility] Start: 12-15-2022 End: 12-16-2022 ambulatory Sabino Cooper [facility] Start: 12-09-2022 End: 12-09-2022 ambulatory Erwin Salazar Facility:[facility] Start: 12-09-2022 End: 12-09-2022 ambulatory MD Sabino Cooper Work Phone: [facility] Work Phone: Start: 12-09-2022 End: 12-09-2022 Patient encounter procedure MD Sabino Cooper Work Phone: [facility] Work Phone: Start: 11-23-2022 End: 11-24-2022 ambulatory Sabino Cooper Facility:[facility] Start: 11-23-2022 End: 11-23-2022 Lab Drop off Sabino Cooper [facility] Start: 11-18-2022 End: 11-18-2022 ambulatory [facility] Start: 11-10-2022 End: 11-10-2022 ambulatory JOSE R ALEXANDER [facility] Start: 11-04-2022 End: 11-05-2022 ambulatory Sabino Cooper Facility:[facility] Start: 11-02-2022 End: 11-03-2022 ambulatory Sabino Cooper Facility:[facility] Start: 10-13-2022 Office outpatient visit [address] [facility] Start: 10-13-2022 End: 10-13-2022 ambulatory Gisele Brunson Facility:[facility] Start: 10-13-2022 End: 10-13-2022 ambulatory MD Mg London Work Phone: [facility] Work Phone: Start: 10-13-2022 End: 10-13-2022 Patient encounter procedure MD Mg London Work Phone: [facility] Work Phone: Start: 10-05-2022 End: 10-06-2022 ambulatory Sabino Cooper Facility:[facility] Start: 09-29-2022 End: 09-29-[address] EDY CARNEY Facility:[facility] Start: 09-24-2022 End: 09-25-[address] MG LODNON Facility:[facility] Start: 09-22-2022 End: 09-22-2022 Emergency department patient visit Gordy Sánchez Facility:[facility] Start: 09-22-2022 End: 09-22-2022 Emergency department patient visit Gordy Sánchez [facility] Start: 09-22-2022 Office outpatient visit 15 minutes Griselda Pennington [facility] Start: 09-22-2022 End: 09-22-2022 ambulatory NARENDRANATH LAKSHMIPATHY . [employer] Other Start: 08-27-2022 ambulatory Sabino Cooper Facility :[facility] [place] Start: 08-25-2022 End: 08-26-2022 ambulatory NARENDRANATH LAKSHMIPATHY . Facility:[facility] Start: 08-24-2022 End: 08-25-2022 ambulatory Sabino Cooper Facility:[facility] Start: 08-21-2022 ambulatory Anjali Ruby Facility :[facility] Start: 08-12-2022 ambulatory Facility:[id number] Start: 08-12-2022 End: 08-12-2022 ambulatory Missy Lowelizabeth Facility:[facility] Start: 08-12-2022 End: 08-12-2022 ambulatory MD Mg London Work Phone: [facility] Work Phone: Start: 08-12-2022 End: 08-12-2022 Patient encounter procedure MD Mg London Work Phone: [facility] [place] Work Phone: Start: 08-11-2022 End: 08-11-2022 ambulatory NARENDRANATH LAKSHMIPATHY . Facility:[facility] Start: 07-29-2022 Office outpatient ne w 60 minutes Erwin Salazar [facility] Start: 07-29-2022 End: 07-29-2022 ambulatory Erwin Salazar Facility:[facility] Start: 07-29-2022 End: 07-29-2022 ambulatory MD Mg London Work Phone: [facility] Work Phone: Start: 07-29-2022 End: 07-29-2022 Patient encounter procedure MD Mg London Work Phone: [facility] Work Phone: Start: 07-23-2022 End: 07-24-2022 ambulatory SONNY LAZO . Facility:[facility] Start: 07-22-2022 End: 07-23-2022 ambulatory ALANNA HARDY Facility:[facility] Start: 07-21-2022 ambulatory Facility:[id number] Start: 07-21-2022 End: 07-21-2022 ambulatory Missy Malou Facility:[facility] Start: 07-21-2022 End: 07-21-2022 ambulatory MD Mg London Work Phone: [facility] Work Phone: Start: 07-21-2022 End: 07-21-2022 Patient encounter procedure MD Mg London Work Phone: [facility]Pac[facility] Check Start: 06-18-2022 End: 07-10-2022 ambulatory SONA COPPOLA Facility:[facility] Start: 06-16-2022 End: 06-17-2022 ambulatory SONA COPPOLA Facility:[facility] Start: 06-11-2022 End: 06-12-2022 ambulatory ALANNA Araiza [facility] Facility:[facility] Start: 05-26-2022 End: 05-26-2022 Patient encounter procedure Dequan GALICIA [facility] Start: 04-16-2022 End: 04-17-[address] ERWIN FALCON Facility:[facility] Start: 03-19-[address] AMANDA CLANCY . Faci lity:[facility]1 Start: 03-12-2022 End: 03-13-2022 ambulatory ALANNA Araiza [facility] Facility:[facility]1 Start: 03-10-2022 End: 03-11-2022 ambulatory DIEGO COYNE Facility:[facility] Start: 03-06-2022 End: 03-07-[address] DOCTOR GOFF Facility:[facility] Start: 12-25-2021 End: 12-26-2021 ambulatory SONNY LZAO . Facility:[facility] Start: 12-01-2021 End: 12-02-2021 ambulatory ALANNA Araiza [facility] Facility:[facility]1 Start: 11-29-2021 End: 11-29-2021 ambulatory Leti Garcia Other [facility] Other Start: 11-29-2021 Office outpatient visit 15 minutes Leti Garcia [facility] Start: 11-13-2021 End: 12-19-2021 ambulatory IFEOMA JARQUIN Facility:[facility]1 Start: 09-04-2020 End: 09-04-2020 Patient encounter procedure Param Cosme Work Phone: [facility] [place] Start: 08-15-2020 End: 08-15-2020 Patient encounter procedure Param Cosme -Pacemaker Check Start: 08-30-2019 End: 08-31-2019 Patient encounter procedure MARGARET ARELLANO Facility:[facility] Procedures Date Procedure Procedure Detail Performing Clinician [...] on above: Performed By: #### CBC #### [facility] [address] [address] [address] Ramsey Sanchez Start: 05-20-2020 Esophagogastroduodenoscopy Dequan [...] Treatment Date Care Activity Detail Author Start: 01-15-2023 Covid-19 Vaccine ( season) Covid-19 Vaccine ( season) [facility] Start: 01-15-2023 Influenza vaccination [facility] Start: 11-12-2022 ambulatory Ambulatory Facility: Start: 05-17-2022 Advance Directive Discussion Advance Directive Discussion [facility] Start: 05-17-2022 Depression Assessment Depression Assessment [facility] Start: 09-04-2020 MRI of right ankle MR ankle RT wo con [facility] Start: 09-04-2020 XR pre/post mri xray XR pre/post mri xray [facility] Start: 01-30-2015 Pneumococcal Vaccine: 65+ (2 - PPSV23 or PCV20) Pneumococcal Vaccine: 65+ (2 - PPSV23 or PCV20) [facility] Start: 1999 RSV Vaccine (1 - 1-dose 60+ series) RSV Vaccine (1 - 1-dose 60+ series) [facility] Start: 10-29-1989 Shingrix Vaccine (1 of 2) Shingrix Vaccine (1 of 2) [facility] Start: 10-29-1984 Diabetes Screening Diabetes Screening [facility] Start: 10-29-1958 Urine microalbumin profile DTaP,Tdap,Td Vaccine (1 - Tdap) [facility] Immunizations Immunization Date Immunization Notes Care Provider Magy rbantley 04-12-2023 influenza virus vaccine, unspecified formulation Anjali Ruby [facility] 11-25-2021 SARS-CoV-2 mRNA (fyxbojqytgb-rvhg-eloil se) vaccine Sabino Cooper [facility] 03-06-2021 SARS-CoV-2 (COVID-19 ) mRNA BNT-162b2 vax Sabino Cooper [facility] Comment on above: Result Comment: 2022: [id number] 02-18-2021 influenza virus vaccine, unspecified formulation Sabino Cooper [facility] 06-27-2020 SARS-CoV-2 (COVID-19 ) Ad26 vaccine, recombinant Dequan GALICIA [facility] 06-27-2020 SARS-CoV-2 (COVID-19 ) mRNA BNT-162b2 vax Dequan GALICIA [facility] 06-06-2020 SARS-CoV-2 (COVID-19 ) Ad26 vaccine, recombinant Dequan GALICIA [facility] [place] 06-06-2020 SARS-CoV-2 (COVID-19 ) mRNA BNT-162y0 vax Dequan GALICIA [facility] 02-14-2020 influenza virus vaccine, unspecified formulation Sabino Cooper [facility] 01-22-2018 influenza, unspecifi ed formulation Sabino Cooper [facility] 01-30-2014 pneumococcal conjuga te vaccine, 13 valent Sabino Cooper [facility] Payers Date Payer Category Payer Medicare UHC MEDICARE UHC AARP OPTUM CARE HMO [id number] 2022-Present [id number] [place] [id number] O [id number] 2022 Medicare [id number] 2.16.840.1.993424.19 2022 Private Health Insurance [id number] 2022 Self-pay [id number] 1959 Medicare [id number] 1959 Medicare [id number] 1959 Medicare [id number] 1959 Unknown [id number] 1939 Unknown [id number] 2.16.840.1.827231.3.579.2. 647 1939 Unknown [id number] 2.16.840.1.370407.3.579.2. 593 1939 Unknown [id number] 2.16.840.1.041960.3.579.2. 593 1939 Unknown [id number] 2.16.840.1.179675.3.579.2. 593 1939 Unknown [id number] 2.16.840.1.201167.3.579.2. 593 1939 Unknown [id number] 2.16.840.1.339966.3.579.2. 593 1939 Unknown [id number] 2.16.840.1.893827.3.579.2. 593 1939 Unknown [id number] 2.16.840.1.551926.3.579.2. 593 1939 Unknown [id number] 2.16.840.1.810588.3.579.2. 593 1939 Unknown [id number] 2.16.840.1.042422.3.579.2. 593 1939 Unknown [id number] 2.16.840.1.094546.3.579.2. 593 1939 Unknown [id number] 2.16.840.1.846557.3.579.2. 593 1939 Unknown [id number] 2.16.840.1.414986.3.579.2. 593 1939 Unknown [id number] 2.16.840.1.591912.3.579.2. 593 1939 Unknown [id number] 2.16.840.1.870354.3.579.2. 593 1939 Unknown [id number] 2.16.840.1.502493.3.579.2. 593 1939 Unknown [id number] 2.16.840.1.882140.3.579.2. 593 1939 Unknown [id number] 2.16.840.1.821661.3.579.2. 593 1939 Unknown [id number] 2.16.840.1.815311.3.579.2. 593 1939 Unknown [id number] 2.16.840.1.035608.3.579.2. 593 1939 Unknown [id number] 2.16.840.1.014563.3.579.2. 593 1939 Unknown [id number] 2.16.840.1.950547.3.579.2. 356 1939 Unknown [id number] 2.16.840.1.409852.3.579.2. 356 1939 Unknown [id number] 2.16.840.1.872370.3.579.2. 356 1939 Unknown [id number] 2.16.840.1.811591.3.579.2. 727 1939 Unknown [id number] 2.16.840.1.096673.3.579.2. 727 1939 Unknown [id number] 2.16.840.1.265042.3.579.2. 727 1939 Unknown [id number] 2.16.840.1.135455.3.579.2. 727 1939 Unknown [id number] 2.16.840.1.796856.3.579.2. 727 1939 Unknown [id number] 2.16.840.1.166460.3.579.2. 727 1939 Unknown [id number] 2.16.840.1.848132.3.579.2. 727 1939 Unknown [id number] 2.16.840.1.319449.3.579.2. 1939 Unknown [id number] 2.16.840.1.031505.3.579.2. 1939 Unknown [id number] 2.16.840.1.944968.3.579.2. 1939 Unknown [id number] 2.16.840.1.049965.3.579.2. 1939 Unknown [id number] 2.16.840.1.000008.3.579.2. 1939 Unknown [id number] 2.16.840.1.696588.3.579.2. 1939 Unknown [id number] 2.16.840.1.844672.3.579.2 1939 Unknown [id number] 2.16.840.1.337281.3.579.2. 1939 Unknown [id number] 2.16.840.1.863121.3.579.2. 1939 Unknown [id number] 2.16.840.1.198283.3.579.2. 1939 Unknown [id number] 2.16.840.1.660053.3.579.2. 1939 Unknown [id number] 2.16.840.1.078692.3.579.2. 72 1939 Unknown [id number] 2.16.840.1.156370.3.579.2. 1939 Unknown [id number] 2.16.840.1.953876.3.579.2. 1939 Unknown [id number] 2.16.840.1.486937.3.579.2. 727 1939 Unknown [id number] 2.16.840.1.813245.3.579.2. 727 Unknown [id number] 2.16.840.1.828018.3.579.2. 531 Unknown [id number] 2.16.840.1.580721.3.579.2. 531 Unknown [id number] 2.16.840.1.693003.3.579.2. 531 Unknown [id number] 2.16.840.1.070460.3.579.2. 531 Unknown [id number] 2.16.840.1.380253.3.579.2. 531 Unknown [id number] 2.16.840.1.146381.3.579.2. 531 Unknown [id number] 2.16.840.1.353226.3.579.2. 531 Unknown [id number] 2.16.840.1.318462.3.579.2. 531 Unknown [id number] 2.16.840.1.144435.3.579.2. 531 Unknown [id number] 2.16.840.1.400148.3.579.2. 531 Social History Date Type Detail Facility Tobacco smoking stat [facility] Unknown if ever smoked [facility] Start: 1940 Sex Assigned At Male F [facility] Start: 04-01-2023 Sex Assigned At F [facility] Start: 04-27-2022 End: 05-25-2023 Tobacco smoking status Ex-smoker (finding) [facility] Comment on above: former smoker quit a t age 41, 1 PPD Tobacco smoking status Never [facility] Comment on above: former smoker quit a t age 41, 1 PPD History of tobacco use Current smoker [facility] History of tobacco use Cigarette Smoker C [facility] Start: 04-01-2023 Tobacco use and exposure Smokeless tobacco non-user [facility] Start: 11-16-2023 History of Social function [facility] Start: 1940 Sex Assigned At Not on file C [facility] Medical Equipment Procedure Code Equipment Code [...] Assessment Result Facility 05-25-2023 Functional Status N/A [facility] 03-10-2023 Functional Status N/A [facility] 02-25-2023 Functional Status N/A [facility] 01-12-2023 Functional Status N/A [facility] 09-22-2022 Functional Status N/A [facility] 05-19-2022 Functional Status N/A [facility] Clinical Notes 11-29-2021 to 06-16-2023 Note Date & Type Note Facility 06-16-2023 Note [id number]# 1.00[facility] 05-31-2023 Evaluation note Encounter Date Diagnosis Assessment [...] months. A prescription was sent to the [facility] for new supplies throughout the year. He [...] sleepiness, or poor response to treatment. . amiando Other 01-09-2024 Hospital Discharge instructions Patient Education [...] grapefruit, pineapple, and nury. Vegetables Deep-fried vegetables. Kuwaiti fries. Any vegetables prepared with added fat. [...] provider. Document Revised: 11/11/2020 Document Reviewed: 11/11/2020 [employer] Patient Education 2022 [employer]. Follow Up Care 02/25/2023 14:06:51 With:Anjali Ruby CNP Address: When:1 month [facility] 12-01-2023 Note [id number]#1.00[facility] 04-15-2023 NoteEndoscopy Care After Procedure Please read the instructions outlined below and refer to this sheet in the next few weeks. These discharge instructions provide you with general information on caring for yourself after you leave theva hospital. Your doctor may also give you [...] Document Re-Released: 10/25/2006 ExitCare? Patient Information ?2009 [employer]. Gastroenterology Upper Endoscopy, Adult, Care After After [...] activities are safe for you. ? Take srkl-cfg-kgzsmjo and prescription medicines only as told by [...] provider. Document Revised: 08/12/2022 Document Reviewed: 08/12/2022 [employer] Patient Education ? 2022 [employer].[facility] Note Chief Complaint: Patient here for 6 mo follow up CAD, hyperlipidemia, and hypertension. Due for routine device interrogation in May 2023. He is scheduled for EGD tomorrow at [facility]. Doesn't think he's had recent labs or testing. Denies chest pain, SOB, palpitations, and lightheadedness. Still does phase 3 cardiac rehab at [facility] 3 times a week. HPI: Jeremie Bennett [...] function is normal. L (more content not included)...[facility]11-20-2023 Miscellaneous Notes* Telephone Encounter - Lolly Dumont - 04/05/2023 9:44 AM EST Received records from [facility]. Reports for imaging listed below scanned. Images pushed through 09/27/2019 US Right Upper Quad 03/31/2020 CT ABD/PEL Right Upper Quad [facility] MRI Abdomen 02/22/2023 US Soft Tissue Head & Neck Received many misc. labs & ER reports Operative Note & pathology from Laparoscopic Cholecystectomy Patient seen 04/01, please review, thank you! documented [facility]-2023 NoteHNO ID: [id number] Author: Vaishali Pringle MD Service: ? Author [...] Medical De (more content not included)...[facility]11-16-2023 Nurse Note* Debby Holland MA - [...] Temperature: No Drains: No documented in [facility]Upper [facility]11-16-2023 History of Present illness Narrative* [...] Level: 4 - Moderate documented in this encounterUpper [facility]11-13-2023 NoteEhMD Melba Galloway MA The patient can hold Plavix for 5 days prior to the procedure and resume once acceptable. He must be on aspirin 81 mg daily while off Plavix. Thank you Done and faxed back to Dr. Powers Office.[facility] 03-10-2023 Hospital Discharge instructions Patient Education [...] Follow these instructions at home: Medicines Take gixf-tww-qbwsfrs and prescription medicines only as told by [...] Watch your condition for any changes. Take zpad-mrq-urbuouo and prescription medicines only as told by [...] provider. Document Revised: 06/21/2020 Document Reviewed: 09/11/2019 [employer] Patient Education 2022 [employer]. Follow Up Care 03/09/2023 09:58:32 With:Anjali Ruby CNP Address: When:1 to 2 weeks Comments:Following EGD. [facility] 10-12-2023 Hospital Discharge instructions Patient [...] Follow these instructions at home: Medicines Take oziv-cfj-vlnbwus and prescription medicines only as told by your health care provider. If you were prescribed an antibiotic medicine, take it as told by your health care provider. Do notstop taking the antibiotic even if you start to feel better. Eating and drinking Make any diet changes as told by your health care provider. Work with a diet and court specialist (dietitian) to create an eating plan [...] provider. Document Revised: 12/21/2020 Document Reviewed: 12/21/2020 [employer] Patient Education 2022 [employer]. Follow Up Care 02/22/2023 16:17:47 With:Anjali Ruby CNP Address: When:3 months [facility] 09-15-2023 Evaluation note* Encounter Date [...] months. A prescription was sent to the [employer] for new supplies throughout the year. He [...] sleepiness, or poor response to treatment. . amiando Other 08-29-2023 Hospital Discharge instructions Patient Education [...] including vitamins, herbs, eye drops, creams, and jnit-wmq-goysawz medicines. Any problems you or family members [...] provider tells you to take them. Taking lskw-yxe-rvdysph medicines, vitamins, herbs, and supplements. General instructions [...] provider. Document Revised: 04/27/2022 Document Reviewed: 12/24/2021 [employer] Patient Education 2022 [employer]. Follow Up Care 12/28/2022 08:53:11 With:Anjali Ruby CNP Address: When:1 to 2 weeks Comments:Following EGD/Colonoscopy. [facility] 08-29-2023 NoteRadiology Colonoscopy, Adult A [...] including vitamins, herbs, eye drops, creams, and rfdh-wuh-vyqqttj medicines. ? Any problems you or family [...] tells you to take them. ? Taking faxn-hpo-axjvqsk medicines, vitamins, herbs, and supplements. General instructions [...] checked for cancer cells. (more content not included)...[facility]08-01-2023 Note Radiology Colonoscopy, Adult A colonoscopy is [...] including vitamins, herbs, eye drops, creams, and zazf-kzn-vdzczia medicines. ? Any problems you or family [...] tells you to take them. ? Taking gqqg-cll-zdrrqsv medicines, vitamins, herbs, and supplements. General instructions [...] checked for cancer cells. (more content not included)...[facility]07-10-2023 NoteRefill for amlodipine sentUnC[facility]06-27-2023 NoteDue for device interrogation next weekUnCleveland Clinic Mer[facility] Hospital06-27-2023 Note Hypertension is well controlled 114/77 Continue medsUniversMer[facility]06-27-2023 Note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 Continue crestorUnCleveland Clinic Mercy Hospital06-27-2023 NoteCoronary artery disease is stable without concerning symptoms Continue GDMT continue risk factor modifications- heart healthy diet, regular exercise as tolerated and continue all medications.[facility] 11-10-2022 NoteUTP CARDIOLOGY PROGRESS NOTE HPI: [...] BY MOUTH EVERY DAY AT NIGHT [DISCONTINUED] tycbthmxbQ-cvbrabsgub-wyd-cod (Fioricet W/Codeine) 55-491-80-30 mg capsule Take 1 capsule by mouth every 4 (four) hours if needed. [DISCONTINUED] fxxrwjzmzs-pxybupxudtzqi-mgfm (Fioricet) 50-300-40 mg capsule every 4 (four) [...] Bowel sounds are n (more content not included)...[facility]06-27-2023 NoteHere today for evaluation post Covid 19 illness, appears to be recovered well, no concerning cardiac symptoms currently. F?U with [facility]05-30-2023 Evaluation note* Encounter Date Diagnosis Assessment [...] sleepiness, or poor response to treatment. . amiando Other [id number] NoteInfectious Disease COVID-19 COVID-19, or coronavirus disease [...] managed at home with rest, fluids, and tymu-cvg-nuolhgu medicines. ? Serious symptoms may be treated [...] condition. ? You should (more content not included)...[facility]05-09-2023 Hospital Discharge instructions Patient Education 09/22/2022 18:15:09 [...] managed at home with rest, fluids, and ugjz-wja-iacdeqt medicines. Serious symptoms may be treated in [...] water are not available, use alcohol-based hand frame stripper. Make sure that all people in your [...] managed at home with rest, fluids, and shpq-que-gvergic medicines. This information is not intended to replace advice given to you by your health care provider. Make sure you discuss any questions you have with your health care provider. Document Revised: 04/23/2022 Document Reviewed: 04/23/2022 [employer] Patient Education 2022 [employer]. Follow Up Care 09/22/2022 16:24:11 With:Sabino Cooper Address: [address] [place] [address] Business (2) When:09/25/2022 18:12:09 [facility]05-09-2023 Evaluation note* Encounter Date Diagnosis Assessment [...] no improvement in 2 to 3 days. amiando Other 04-11-2023 NoteCONSULTATION CONSULTATION DATE: 08/25/2022 TO: [...] our patients to inform us about any ddfs-smn-rrubhrt medications or herbal remedies/nutritional supplements/alternative remedies. 2. [...] treatment options with their primary care provider.[facility] [id number] Evaluation note * Encounter Date Diagnosis Assessment [...] symptoms if he does not take his unhh-tzw-ydjuvrx hypnotic, sleep hygiene issues may also be [...] neuropathy pain Jul, Coronary artery disease involving [place] heart without angina pectoris, unspecified vessel or [...] he does have a defibrillator in place amiando Other 03-09-2023 NoteCONSULTATION CONSULTATION DATE: 07/23/2022 HISTORY [...] gain authorization to hold the Plavix pre-procedure.[facility] [id number] NotePROCEDURE: XR ANKLE RT MIN 3 VIEWS COMPARISON: 08/22/2020 HISTORY: Pain of right ankle joint FINDINGS: BONES:No acute fracture or dislocation. Moderate enthesopathic spurring of the calcaneus. Degenerative changes with bone fragments along the inferior medial malleolus, stable. SOFT TISSUES:Negative. No visible soft tissue swelling. EFFUSION:None visible. OTHER: Negative. IMPRESSION: Stable degenerative changes Electronically authenticated by: ERWIN FALCON Date: 2022-07-22 10:37[facility] [id number] NotePROCEDURE: XR FOOT RT MIN 3 VIEWS [...] authenticated by: CLARISSA GARCIA Date: 2022-06-16 15:25[facility] [id number] Hospital Discharge instructions Patient Education 05/26/2022 13:46:25 [...] Urology [address], [place] [address]- Business (1) When: Unknown Comments:Office will call to schedule follow up [facility]08-11-2022 NoteCONSULTATION PROCEDURE DATE: 12/25/2021 PRE AND POSTOPERATIVE [...] will be followed up in the clinic.[facility] 12-25-2021 NoteCONSULTATION CONSULTATION DATE: 12/25/2021 This is [...] recently seen at an urgent care in [place] for left thumb pain and joint swelling. [...] in three months' time unless otherwise indicated.[facility] [id number] Evaluation note* Encounter Date Diagnosis Assessment Notes [...] will help you get into a specialist. amiando Other Chijw complaint+Reason for visit Narrative* Chief Complaint N54.2 Self Referral [facility] Work Phone: Chief complaint+Reason for visit Narrative* Chief Complaint N54.2 Self Referral [id number] [id number] m54.12 m54.2 [facility] Work Phone: Chisi complaint+Reason for visit Narrative* Chief Complaint N54.2 Self Referral [id number] [id number] m54.12 m54.2 isidro, 31-90 [facility] Work Phone: Evaluation + Plan note No data available for this section [facility] Future Appointments Appointment Date:11/23/2022 09:00:00 AM Scheduled Provider:Sabino Cooper MD Location:[facility] App[facility]ment Type: [facility] Future Appointments Appointment Date:12/15/2022 12:00:00 PM Scheduled Provider:Anjali Ruby CNP Location[facility] Appointment Type:[facility] New Patient Appointment Date:05/31/2023 09:00:00 AM Scheduled Provider:Sabino Cooper MD Location:[facility] Appointment Type: Open Appointment Date:11/08/2023 01:00:00 PM Scheduled Provider: Location:[facility] Appointment Type: Medicare Wellness Subsequent Future Scheduled Tests Laboratory* HgbA1c 11/23/22 * CBC w/ Auto Diff 11/23/22 * Comprehensive Metabolic Panel 11/23/22 * Lipid Panel 11/23/22 [facility] Future Appointments Appointment Date:05/31/2023 09:00:00 AM Scheduled Provider:Sabino Cooper MD Location:[facility] Appointment Type: Open Appointment Date:11/08/2023 01:00:00 PM Scheduled Provider: Location:[facility] Appointment Type: Medicare Wellness Subsequent Future Scheduled Tests Laboratory* HgbA1c 11/23/22 * CBC w/ Auto Diff 11/23/22 * Comprehensive Metabolic Panel 11/23/22 * Lipid Panel 11/23/22 [facility] Future App[facility]ments Appointment Date:05/31/2023 09:00:00 AM Scheduled Provider:Sabino Cooper MD Location:[facility] Appointment Type: Open Appointment Date:11/08/2023 01:00:00 PM Scheduled Provider: Location:[facility] Appointment Type: Medicare Wellness Subsequent Future Scheduled Tests Laboratory* HgbA1c 11/23/22 * CBC w/ Auto Diff 11/23/22 * Comprehensive Metabolic Panel 11/23/22 * Lipid Panel 11/23/22 Radiology* CT Abdomen w/ Contrast 01/12/23 [facility] Evaluation + Plan note Future Appointments Appointment Date:05/03/2023 01:40:00 PM Scheduled Provider:Anjali Ruby CNP Location:[facility] Appointment Type:[facility] Follow Up Appointment Date:05/31/2023 09:00:00 AM Scheduled Provider:Sabino Cooper MD Location:[facility] Appointment Type: Open Appointment Date:11/08/2023 01:00:00 PM Scheduled Provider: Location:[facility] Appointment Type: Medicare Wellness Subsequent Future Scheduled Tests Laboratory* HgbA1c 11/23/22 * CBC w/ Auto Diff 11/23/22 * Comprehensive Metabolic Panel 11/23/22 * Lipid Panel 11/23/22 [facility] evaluation + Plan note Future Appointments Appointment Date:05/03/2023 01:40:00 PM Scheduled Provider:Anjali Ruby CNP Location:[facility] Appointment Type:[facility] Follow Up Appointment Date:05/31/2023 10:00:00 AM Scheduled Provider:Sabino Cooper MD Location:[facility] Appointment Type: Open Appointment Date:11/08/2023 01:00:00 PM Scheduled Provider: Location:[facility] Appointment Type:FM Medicare Wellness Subsequent Future Scheduled Tests Laboratory* HgbA1c 11/23/22 * CBC w/ Auto Diff 11/23/22 * Comprehensive Metabolic Panel 11/23/22 * Lipid Panel 11/23/22 [facility] evaluation + Plan note Future Appointments Appointment Date:05/03/2023 01:40:00 PM Scheduled Provider:Anjali Ruby CNP Location:[facility] Appointment Type:[facility] Follow Up Appointment Date:05/31/2023 10:00:00 AM Scheduled Provider:Sabino Cooper MD Location:[facility] Appointment Type: Open Appointment Date:11/08/2023 01:00:00 PM Scheduled Provider: Location:[facility] Appointment Type:FM Medicare Wellness Subsequent Diagnostic Tests Pending * O & P Exam, Routine 03/10/23 * Giardia lamblia, Direct Detection EIA 03/10/23 Future Scheduled Tests Laboratory* HgbA1c 11/23/22 * CBC w/ Auto Diff 11/23/22 * Comprehensive Metabolic Panel 11/23/22 * Lipid Panel 11/23/22 [facility] Future App[facility]ments Appointment Date:05/31/2023 10:00:00 AM Scheduled Provider:Sabino Cooper MD Location:[facility] Appointment Type:FM Open Appointment Date:06/25/2023 01:20:00 PM Scheduled Provider:Anjali Rbuy CNP Location:[facility] Appointment Type:[facility] Follow Up Appointment Date:11/08/2023 01:00:00 PM Scheduled Provider: Location:[facility] Appointment Type: Medicare Wellness Subsequent Future Scheduled Tests Laboratory* HgbA1c 11/23/22 * CBC w/ Auto Diff 11/23/22 * Comprehensive Metabolic Panel 11/23/22 * Lipid Panel 11/23/22 [facility] Evaluation noteNo Assessments Information Available [facility] note[facility] assessment information available [facility] Work Phone: Evaluation note* Diagnosis 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 documented in this encounter [facility]* Diagnosis 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 documented in this encounter [facility] general Narrative - Reported* Type Description Date Medical History DM (diabetes mellitus) Medical History HTN (hypertension) Medical History Hypercholesteremia Medical History Vitamin D deficiency, unspecifie d Medical History CAD (coronary artery disease) Surgical History Neck Surgery Surgical History cholecystectomy Surgical History cardiac stent Surgical History prostatectomy Surgical History hernia Hospitalization History see above [facility] Other [facility] Narrative - Reported* Type Description Date [...] Surgical History hernia Hospitalization History see above [facility] Other Hospital Discharge instructions No data available for this section [facility] No data available for this section [facility] (narrative) Referred by: Anjali Ruby CNP [facility] Dig[facility]ive [facility] Summary Purpose Family History No [...] Recorded Date/ Time Advance Directives No August 13, 021 10:26am Advance Directive Response Recorded Date/ [...] section and content) DATE CREATED AUTHOR 02/08/2020 [facility] DATE CREATED AUTHOR AUTHOR'S ORGANIZ ATION 09/30/2022 [facility] DATE CREATED AUTHOR AUTHOR'S ORGANIZ ATION 02/04/2023 [facility] DATE CREATED AUTHOR AUTHOR'S ORGANIZ ATION 05/01/2023 [facility] DATE CREATED AUTHOR AUTHOR'S ORGANIZ ATION 05/26/2023 [facility] DATE CREATED AUTHOR AUTHOR'S ORGANIZ ATION 06/25/2023 [facility] DATE CREATED AUTHOR AUTHOR'S ORGANIZ ATION 06/26/2023 [facility] REASON FOR VISIT (unrecogniz ed section and content) Reason Comments Consult [facility] Reason Comments Received Outside Medical Records [...] Inactive Member Role Status Dates Gisele Brunson TECHNICAL IMPLEMENTATION LEAD Attending Provider Active Sabino Cooper MD Primary [...] MD Primary Care Provider Active Gisele Brunson , TECHNICAL IMPLEMENTATION LEAD Attending Provider Active Team Status: Inactive Member Role Status Dates Sabino Cooper MD Primary Care Provider Active FABIO Chavez Attending Provider 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 Start Date End Date Anjali Ruby CNP [address] [facility] [facility] [place] [address] Referring Family Medicine 03/03/23 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 Relationship Specialty Start Date End Date Anjali Ruby CNP [address] [place] [place] [address] Referring Family Medicine 03/03/23 Goals (unrecognized section [...] or prosecute any alcohol or drug abuse patient.[facility] the event this information is protected by the Federal Confidentiality of Alcohol and Drug Abuse Patient Records regulations: The Federal rules restrict any use of the information to criminally investigate or prosecute any alcohol or drug abuse patient.[facility] FOR RECORDS PERTAINING TO PATIENTS [...] BE BASED ON THE PRIMARY CLINICAL RECORDS. [facility]. provides no warranty or guarantee of the accuracy or completeness of information in this document.
[2023-08-17 07:37] VITALS: BP 121/74; PULSE 74; TEMP 36.4; O2SAT 96
[2023-08-17 07:37] LABS: Glucometer 119 mg/dL (74-106)
[2023-08-17] MEDS: 0.9 % SODIUM CHLORIDE 500 ML IV (07:47)
[2023-08-17] MEDS: METHYLPREDNISOLONE ACETATE 40 MG/ML VIAL INJ (08:39)
[2023-08-17] MEDS: LIDOCAINE HCL 2% 400 MG/20 ML MDV 7 ML INJ (08:39)
[2023-08-17] MEDS: BUPIVACAINE HCL 0.25% PF 25 MG/10 ML VIAL 4 ML INJ (08:39)
[2023-08-17 08:45] VITALS: BP 99/57; PULSE 70; TEMP 36.9; O2SAT 96
--- NOTE | 2023-08-17 08:52 | PC.NURSE ---
Pacer interrogation completed, pt tolerated well. Waiting for report from [facility]
[2023-08-17 08:53] VITALS: BP 95/51; PULSE 63; TEMP 36.9; O2SAT 93
--- NOTE | 2023-08-17 09:14 | W.PM.PROCNOT ---
Date of procedure: 08/17/23 Pre-op diagnosis: LUMBAR SPONDYLOSIS Post-op diagnosis: same as pre-op Procedure: Right Lumbar 2/3, 4/5 Radiofrequency ablation Under fluoroscopic guidance Rhizotomy was created using radio frequency ablation at 80?C for 90 seconds 1 to 2 lesions created at each site. Post lesioning injection of 2 mL each of 0.25% Marcaine and 2% lidocaine with Depo-Medrol 40mg. 0.5 to 1 mL injected at each site IV in place yes If Intravenous fluids: NS at KVO Anesthesia local 2% lidocaine for Anesthesia Other: MAC Timeout process compliant After informed consent obtained.Patient brought to the procedure room placed in the prone position skin overlying the area was prepped and draped in a sterile fashion using betadine. 25 gauge needle was used to create a skin wheal over each of the targeted areas utilizing 2% lidocaine. A rhizotomy needle with a 10 mm active tip was inserted over each of the anesthetized areas and directed towards each of the medial branches accomplished under fluoroscopic guidance. after encountering the same we had positive sensory stimulation, negative motor stimulation was noted. lesions were then created. Post lesioning, steroid solution was injected needles removed. Patient was transferred to recovery room in stable condition to be discharged home after meeting criteria. Anesthesia: MAC Surgeon: Aster Saleem Condition: stable
--- NOTE | 2023-08-17 09:32 | PC.NURSE ---
Ty, [employer] rep called stating that interrogation was negative.
== END 2023-08-17 09:35 | disposition home or self-care (01) ==
LOC: SURGOUT 07:15
PROVIDERS: PCP Family Medicine; Visit Provider Anesthesiology Pain Medicine
DX: M47.816 Spondylosis without myelopathy or radiculopathy, lumbar region (principal); E11.9 Type 2 diabetes mellitus without complications; Z79.84 Long term (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 of oral hypoglycemic drugs
CPT/HCPCS: 36415; 64635; 64636; 82948; J1010; J2704

== ENCOUNTER 2023-09-15 08:46 | Outpatient (OUT) | payer MEDICARE, SELFPAY ==
--- NOTE | 2023-09-15 09:15 | PM.CN ---
Consult Note: HPI Data of Consult Patient: known to practice within the last 3 years Requesting Physician: Alexandra Trevizo NP Primary Care Provider: SABINO COOPER Consult Narrative Reason for consult: Procedure f/u Narrative: Jair Bennett a pleasant 82 year old male presents for evaluation of chronic low back pain. Recently underwent right lumbar 2,3 &4,5 facet RFA providing greater than 75% improvement in pain and functional ability ongoing. Pain 1/10 increasing to 3/10 at its worst. Patient continues to have moderate to severe neck pain without radiculopathy. active in HEP greater than 6 weeks without benefit. cc:: CC: Alexandra Trevizo NP Review of Systems ROS Status of ROS 10 or more systems reviewed and unremarkable except as noted in history and below Musculoskeletal Reports: back pain, neck pain and joint pain PFSH [facility] Medical History Pacemaker ?Z95.0 - Presence of cardiac pacemaker (ICD-10) Cholecystitis ?K81.9 - Cholecystitis, unspecified (ICD-10) Neck pain ?M54.2 - Cervicalgia (ICD-10) Low back pain ?M54.50 - Low back pain, unspecified (ICD-10) Thrombosis ?I82.90 - Acute embolism and thrombosis of unspecified vein (ICD-10) Weakness ?R53.1 - Weakness (ICD-10) Numbness ?R20.0 - Anesthesia of skin (ICD-10) Hiatal hernia ?K44.9 - Diaphragmatic hernia without obstruction or gangrene (ICD-10) Heartburn ?R12 - Heartburn (ICD-10) Acid reflux ?K21.9 - Gastro-esophageal reflux disease without esophagitis (ICD-10) Diabetes ?E11.9 - Type 2 diabetes mellitus without complications (ICD-10) Prostate cancer ?C61 - Malignant neoplasm of prostate (ICD-10) Sleep apnea ?G47.30 - Sleep apnea, unspecified (ICD-10) Irregular heart beat ?I49.9 - Cardiac arrhythmia, unspecified (ICD-10) High cholesterol ?E78.00 - Pure hypercholesterolemia, unspecified (ICD-10) Hypertension ?I10 - Essential (primary) hypertension (ICD-10) Surgical History H/O angioplasty ?Z98.62 - Peripheral vascular angioplasty status (ICD-10) H/O vasectomy ?Z98.52 - Vasectomy status (ICD-10) H/O neck surgery ?Z98.890 - Other specified postprocedural states (ICD-10) History of repair of inguinal hernia ?Z98.890 - Other specified postprocedural states (ICD-10) ?Z87.19 - Personal history of other diseases of the digestive system (ICD-10) History of prostatectomy ?Z90.79 - Acquired absence of other genital organ(s) (ICD-10) History of phacoemulsification of cataract of both eyes with intraocular lens implantation ?Z98.41 - Cataract extraction status, right eye (ICD-10) ?Z98.42 - Cataract extraction status, left eye (ICD-10) ?Z96.1 - Presence of intraocular lens (ICD-10) History of cardiac radiofrequency ablation ?Z98.890 - Other specified postprocedural states (ICD-10) History of tonsillectomy ?Z90.89 - Acquired absence of other organs (ICD-10) Social History Smoking status: Former smoker Meds Home Medications and Allergies Home Medications ?Medication ?Instructions ?Recorded ?Confirmed ?Type amlodipine 5 mg tablet 5 mg PO QDAY 10/14/22 08/17/23 History aspirin 81 mg tablet,delayed 81 mg PO QDAY 10/14/22 08/17/23 History release (Adult Low Dose Aspirin) butalbital 50 mg-acetaminophen 300 1 cap PO Q4H PRN pain 10/14/22 08/17/23 History mg-caffeine 40 mg-codeine 30 mg cap clopidogrel 75 mg tablet (Plavix) 75 mg PO QDAY 10/14/22 08/17/23 History diphenhydramine 25 1 tab PO ONCE 10/14/22 08/17/23 History mg-acetaminophen 500 mg tablet (Tylenol PM Extra Strength) dorzolamide (PF) 2 % (PF) eye drops 1 drp ophthalmic (eye) TID 10/14/22 08/17/23 History fluticasone propionate 50 1 spray intranasal QDAY PRN nasal 10/14/22 08/17/23 History mcg/actuation nasal congestion spray,suspension (24 Hour Allergy Relief) furosemide 20 mg tablet (Lasix) 20 mg PO QDAY 10/14/22 08/17/23 History irbesartan 300 mg tablet (Avapro) 300 mg PO QDAY 10/14/22 08/17/23 History isosorbide mononitrate 30 mg PO BID 10/14/22 08/17/23 History latanoprost 0.005 % eye drops 1 drp ophthalmic (eye) QDAY 10/14/22 08/17/23 History loperamide 2 mg capsule 2 mg PO Q2H PRN loose stool 10/14/22 08/17/23 History (Anti-Diarrheal (loperamide)) metformin 500 mg tablet 500 mg PO BID 10/14/22 08/17/23 History multivitamin (Daily Multi-Vitamin 1 tab PO QDAY 10/14/22 08/17/23 History tablet) omeprazole 40 mg capsule,delayed 40 mg PO QDAY 10/14/22 08/17/23 History release rosuvastatin 10 mg tablet (Crestor) 10 mg PO QDAY 10/14/22 08/17/23 History sotalol 40 mg PO BID 10/14/22 08/17/23 History tizanidine 4 mg tablet 4 mg PO ONCE 10/14/22 08/17/23 History Allergies Allergy/AdvReac Type Severity Reaction Status Date / Time adhesive Allergy Mild Verified 04/20/23 09:53 niacin Allergy Mild Verified 04/20/23 09:53 [From Niaspan Extended-Release] Exam Constitutional Documenting provider has reviewed patient's vital signs: yes Common normals: no apparent distress, oriented x3, healthy appearing, alert and well nourished General appearance: cooperative [facility] Common normals: normocephalic, hearing grossly normal bilaterally and moist oral mucous membranes Head and scalp: normocephalic Eye Common normals: PERRL Pupil: PERRL Neck & C-Spine Common normals: full ROM General: normal visual inspection Cervical spine: cervical ROM abnormal and pain with cervical ROM Chest Common normals: inspection of chest normal Respiratory Common normals: normal respiratory effort, no retractions and no use of accessory muscles Back & Pelvis Lumbar spine/lower back: normal to inspection, lumbar ROM normal and straight leg raise negative bilaterally Other: negative facet loading Extremity Common normals: normal to inspection and full ROM Right lower extremity: hip joint Other: positive leg roll/internal rotation of left hip negative tenderness over right GTB, no pain over IT band Neuro Common normals: oriented x3, CN's II-XII intact bilaterally, moves all extremities, no focal motor deficits, no sensory deficits noted and deep tendon reflexes 2+ bilaterally Sensorium/orientation: alert Gait (neuro): antalgic Motor exam: strength 5/5 throughout and no movement abnormalities noted Psych Common normals: mental status grossly normal, thought process normal, cooperative, affect normal, speech normal and activity/motor behavior normal Speech: normal speech Thought process: normal thought process Results Additional Findings Additional findings: If on a controlled substance or opioids, I have checked an [place] report on this patient and there are no aberrancies noted in the prescribing history.??If on a controlled substance or opioid a drug screen was completed and reviewed within the last year, and if there has not been a drug screen completed we ordered one today to monitor higher risk, state monitored pain medication use. As part of providing excellent, safe, comprehensive care, the following was completed at our patient's visit: 1. A medication reconciliation and review to ensure accurate knowledge of current/active medications, including asking our patients to inform us about any [id number] medications or herbal remedies/nutritional supplements/alternative remedies. 2. A review to specifically ensure our patients have had annual screening for screening for depression, screening for tobacco use, and screening for unhealthy alcohol use. For concerning screenings had a discussion with the patient, provided patient education, and recommended follow-up with primary care provider when appropriate. If patient noted with a risk of falling, they received education on strength, gait, and balance training to prevent future risk of falling. Assessment and Plan Assessment and Plan (1) Lumbar spondylosis: Assessment and Plan: The patient has had over 3 months of moderate to severe back pain with functional impairment and inadequate response to conservative care including NSAIDS (unless there are contraindication such as concurrent blood thinners), multiple oral or topical pain medications, and home exercise program/physical therapy.? Patient has completed >6 weeks of guided home exercise program and/or formal physical therapy program without relief of their symptoms.? I have reviewed the imaging of the lumbar spine and no red flags were identified.? The imaging reveals radiographic findings consistent with lumbar spondylosis We discussed the risks and benefits of the procedure with the patient, and we are NOT planning on using sedation as outlined in the guidelines from Medicare unless there is a documented reason that sedation would be strongly recommended.?? ?The procedure will be completed with fluoroscopic guidance.? 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
== END 2023-09-15 08:47 | disposition home or self-care (01) ==
PROVIDERS: PCP Family Medicine; Visit Provider Nurse Practitioner
DX: M47.816 Spondylosis without myelopathy or radiculopathy, lumbar region (principal); M62.838 Other muscle spasm; Z79.01 Long term (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 of anticoagulants; M54.2 Cervicalgia; M47.812 Spondylosis without myelopathy or radiculopathy, cervical region; M25.551 Pain in right hip
CPT/HCPCS: G0463

== ENCOUNTER 2024-01-20 13:47 | Outpatient (OUT) | payer MEDICARE, SELFPAY ==
--- NOTE | 2024-01-20 13:51 | US_ITS ---
[facility] [place] [id number] Patient Name: JEREMIE GROSS MRN: [id number] date: 1940 Sex: M Assigned Patient Location: US Current Patient Location: Accession/Order Number: [id number] Exam Date: 01/20/2024 14:06 Report Date: 01/21/2024 05:12 At the request of: SABINO COOPER Procedure: US soft tissue head and neck EXAMINATION: US soft tissue head and neck HISTORY: Cervical Lymphadenopathy COMPARISON: Ultrasound soft tissue head neck 02/22/2023 FINDINGS: 4 rounded heterogeneous hypoechoic masses within right neck corresponding to patient's palpable area, largest is 1.4 x 1.2 x 1.0 cm. US/US soft tissue head and neck IMPRESSION: 1. Stable nonspecific hypoechoic and heterogeneous masses or abnormal appearing lymph nodes within the right neck corresponding to patient's palpable lumps. Ultrasound-guided tissue sampling could be performed for further evaluation if clinically indicated. Electronically authenticated by: CLARISSA GARCIA Date: 01/21/2024 05:12
== END 2024-01-20 13:48 | disposition home or self-care (01) ==
LOC: US 13:47
PROVIDERS: PCP Family Medicine; Visit Provider Family Medicine
DX: R59.0 Localized enlarged lymph nodes (principal)
CPT/HCPCS: 76536

== ENCOUNTER 2024-02-29 08:45 | Day surgery (SDC) | payer MEDICARE, SELFPAY ==
--- NOTE | 2024-02-29 08:53 | US_ITS ---
[address] [address] Patient Name: JEREMIE GROSS MRN: [id number] date: 1940 Sex: M Assigned Patient Location: Current Patient Location: Accession/Order Number: [id number] Exam Date: 02/29/2024 08:55 Report Date: 02/29/2024 12:52 At the request of: LUC HAM Procedure: US biopsy lymph node EXAMINATION: US biopsy lymph node HISTORY: Neck Mass COMPARISON: No relevant comparison available. TECHNIQUE: After obtaining informed consent, ultrasound-guided fine needle aspiration was performed in the usual sterile manner. FINDINGS: IMAGING: Ultrasound. BIOPSY NEEDLE: 20-gauge [place] spring loaded core biopsy needle with an 18-gauge 6 cm by LOCATION: Round 1.4 cm right neck mass/lymph node SPECIMEN TYPE: 3 core samples LOCAL ANESTHETIC: 4 cc 1% buffered lidocaine COMPLICATIONS: None. LABORATORY: Prepared slide smears and washings for cell block evaluation. OTHER: Negative. PATHOLOGY: Pending. An addendum will be added when results are available. US/US biopsy lymph node IMPRESSION: 1. Uneventful ultrasound guided core biopsy 2. Pathology results are pending. Electronically authenticated by: ERWIN FALCON Date: 02/29/2024 12:52
--- OUTSIDE RECORDS SUMMARY | 2024-02-29 08:57 | XMS_ITS | CCD ---
Author Organization [facility] CliniSysd Care Team Providers Care Jail Keeper Name Role Phone ELTAHAWShi, EHAB A Admitting Unavailable ELTAHAWY, EHAB A Attending Unavailable SABINO COOPER Referring Unavailable SABINO COOPER Primary Care Unavailable Param Cosme Attending Provider [phone] Sabino Cooper Primary Care Provider [phone] Param Cosme Attending Provider [phone] Sabino Cooper Primary Care Provider Leti Garcia Unavailable MG LONDON Primary Care Physician KAT Westfall Attending Provider MD Mg London Primary Care Provider KAT Westfall Attending Provider [phone] MD Mg [place] Primary Care Provider MD Erwin Salazar Attending Provider Erwin Salazar Unavailable MARCE Hardy Attending Provider KAT Westfall Other Provider Sabino Cooper Primary Care Physician Griselda Pennington Unavailable ALANNA HARDY Admitting Unavailable ALANNA HARDY Attending Unavailable LITA, DR MG Omalley Primary Care Unavailable MORAGA, DR ERWIN Bell Consulting Unavailable ALANNA HARDY [...] ABDON, SONA Consulting Unavailable NADERESon, DR MG Omalley Primary [...] DR MG Omalley Primary Care Unavailable HALKER ., MANDEEP Consulting Unavailable LAKSHMIPATHY ., NARENDRANATH Admitting Lisset vailable LAKSHMIPATHY ., NARENDRANATH Consulting Lisset vailable LAKSHMIPATHY ., NARENDRANATH Attending Lisset vailable LAKSHMIPATHY ., NARENDRANATH Admitting Lisset vailable SABINO COOPER Primary Care Unavailable LAZO ., SONNY Consulting Unavailable CLANCY ., DR AMANDA Thapa Admitting Unavailable CLANCY ., DR AMANDA Thapa Attending Unavailable NADERESon, DR MG Omalley Primary Care Unavailable ALANNA HARDY Admitting Unavailable HIGHLELLA, ALANNA Araiza Attending Unavailable NADERER, DR MG Omalley Primary Care Unavailable HIGHLANDER, ALANNA Araiza Attending Unavailable HIGHLELLA, ALANNA Araiza Admitting Unavailable NADERER, DR MG Omalley Primary Care Unavailable MISC, DR BECKER Attending Unavailable FAWSHAIKH Jane SULLIVAN Consulting Unavailable MISC, DR BECKER Admitting Unavailable NADERER, DR MG Omalley Primary Care Unavailable MORAGA, DR ERWIN Bell Consulting Unavailable ELTAHAWY, DR CAO Admitting Unavailable ELTAHAWY, DR CAO Attending Unavailable NADERER, DR MG Omalley Primary Care Unavailable ELTAHAWY, DR CAO Consulting Unavailable REINECK, DR EDY Da Silva Admitting Unavailabl e NADERER, DR MG Omalley Primary Care Unavailable REINECK, DR EDY Da Silva Consulting Unavailabl e REINECK, DR EDY Da Silva Attending Unavailabl e NEFCY, ALANNA Consulting Unavailable BRITTON IFEOMA Admitting Unavailable NADERER, DR MG Omalley Primary Care Unavailable BRITTON, IFEOMA Attending Unavailable HIGHLANDER, ALANNA Araiza Attending Unavailable HIGHLELLA, ALANNA Araiza Admitting Unavailable NADERER, DR MG Omalley Primary Care Unavailable Brunson, PANAMA HAT HYDRAULIC PRESS OPERATOR Gisele Attending Provider MD Sabino Cooper Primary Care Provider Brunson, Gisele Unavailable MD Erwin Salazar Attending Provider MD Sabino Cooper Primary Care Provider [phone] MD Inez Henderson Attending Provider [facility] Brunson, PANAMA HAT HYDRAULIC PRESS OPERATOR Gisele Attending Provider FABIO Ruby Attending Provider [phone] Flori GARZA Anjali Unavailable MD Sabino Cooper Primary Care Provider [phone] Boy, PANAMA HAT HYDRAULIC PRESS OPERATOR Gisele Attending Provider Missy Westfall Consulting Unavailable Alanna Hardy Admitting Unavailable Alanna Hardy Attending Unavailable Mg [place] Primary Care Unavailable Missy Westfall Admitting Unavailable Missy Westfall Attending Unavailable Mg [place] Primary Care Unavailable Brunson, Gisele Admitting Unavailable Brunson, Gisele Attending Unavailable Sabino Cooper Primary Care Unavailable Erwin Salazar Admitting Unavailable Erwin Salazar Attending Unavailable Sabino Cooper Primary Care Unavailable Sarmini, Wiley T Admitting Unavailable Sarmini, Wiley T Attending Unavailable Sabino Cooper Primary Care Unavailable Brunson, Gisele Admitting Unavailable Brunson, Gisele Attending Unavailable Sabino Cooper Primary Care Unavailable Sabino Cooper Primary Care Unavailable Flori, Anjali Ifeoma Admitting Unavailable Flori, Anjali Ifeoma Attending Unavailable Brunson, Gisele Admitting Unavailable Brunson, Gisele Attending Unavailable Sabino Cooper Primary Care Unavailable Missy Westfall Admitting Unavailable Missy Westfall Attending Unavailable Lita, Mg Primary Care Unavailable Erwin Salazar Admitting Unavailable Erwin Salazar Attending Unavailable Lita, Mg Primary Care Unavailable MARGARET ARELLANO Attending Unavailable DANIEL PATEL Referring Unavailable DANIEL PATEL Referring Unavailable DANIEL PATEL Referring Unavailable Beatriz, Inez Funes Attending Unavaila Anjali Villanueva A Attending Unavailable Sabino Cooper Attending Unavailable Sabino Cooper Attending Unavailable Anjali Ruby Attending Unavailable Anjali Ruby Attending Unavailable Mya, SRAVANI Knox Attending Unavailable Sabino Cooper Attending Unavailable Sabino Cooper Attending Unavailable Sabino Cooper Attending Unavailable Gordy Powers Admitting Unavailable Gordy Powers Attending Unavailable Gordy Powers Referring Unavailable Sabino Cooper Attending Unavailable Sabino Cooper Attending Unavailable Sabino Cooper Attending Unavailable Beatriz, Wiley Talal Admitting Unavaila ble Sarmini, Wiley Eyadal Attending Unavaila ble Sarmini, Wiley Talal Referring Unavaila ble Sarmini, Wiley Talal Admitting Unavaila ble Sarmini, Wiley Talal Attending Unavaila ble Sarmini, Wiley Talal Referring Unavaila ble Flori, Anjali A Admitting Unavailable Flori, Anjali A Attending Unavailable Flori, Anjali A Admitting Unavailable Flori, Anjali A Attending Unavailable Beatriz, Wiley Eyadal Attending Unavaila ble Flori, Anjali A Attending Unavailable Flori Anjali A Attending Unavailable MISSY WESTFALL Attending Unavailable LUC HAM Attending Unavailable SABINO COOPER Referring Unavailable LUC HAM Referring Unavailable MISSY WESTFALL Attending Unavailable LUC HAM Attending Unavailable VAISHALI PRINGLE Attending Unavailable Clarissa Corado MD Unavailable Sabino Cooper MD Primary Care Provider [phone] Flori GARZA, Anjali A. Unavailable Unavailable Unavailable Unavailable Allergies Allergy Classification Reported Allergen(s) Allergy Type Date of Onset Reaction(s) Facility (3 sources) Desonide Drug Allergy 0 [facility] (1 source) Niacin Drug Allergy 0 [facility] (8 sources) Adhesive agent; Translations: [adhesive] Drug allergy 4 [facility] (20 sources) Niacin; Translations: [niacin] Drug Allergy 9 hives, Itching (finding), Itching, Unknown [facility] (14 sources) Adhesive bandage; Translations: [Adhesive Bandage] Allergy to substance Eruption of skin (disorder) [facility] (5 sources) Niacin Drug Allergy Digital Message Display Other (2 sources) Niaspan Starter Pack Drug allergy (disorder) 8 [facility] Repository (5 sources) Adhesive Tape-Silicones; Translations: [ADHESIVE TAPE-SILICONES] Drug Allergy 9 [facility] (1 source) Niacin Drug Allergy [address] [place] [address] Repository (1 source) Niacin; Translations: [Niaspan ER] Drug Allergy [facility] Repository (5 sources) Niacin Drug Allergy 9 Itching, Unknown [facility] (5 sources) Wound Dressing Adhesive Drug Allergy 3 Unknown [facility] Medications Current Medications Medication Drug Class(es) Dates Sig (Normalized) Sig (Original) acetaminophen 325 mg / butalbital 50 mg / caffeine 40 mg oral tablet (19 sources) Barbiturate, Central Nervous System Stimulant, Methylxanthine Start: 12-15-2022 take 1 tablet by mouth every four hours as needed acetaminophen 325 mg-caffeine 40 mg-butalbital 50 mg (FIORICET) per tablet Take 1 tablet by mouth every 4 hours as needed. 12/15/2022 Active Start: 12-15-2022 APAP/butalbita l/caffeine 325 mg-50 mg-40 mg Tab Refill(s) 0, Headache Start Date: 12/15/22 Status: Ordered Comment on above: Take 1 tablet by peggy every 4 hours as needed. Tylenol PM (6 sources) Histamine-1 Receptor Antagonist Start: 11-08-2023 take 1 tablet by mouth once daily at bedtime Tylenol PM Oral, Once a day (at bedtime), Refill(s) 0, 250mg- 2 tabs at HS Start Date: 11/08/23 Status: Ordered take 25-500 mg by mo uth once as needed diphenhydrAMINE-acetaminophen (Tylenol P M) 25-500 MG per tablet Take 1 tablet by mouth as needed at bedtime for sleep. Active Albuterol (Eqv-ProAir HFA) 90 mcg/inh inhalation aerosol (11 sources) Start: 11-09-2022 Albuterol (Eqv-ProAir HFA) 90 mcg/inh inhalation aerosol See Instructions, 17 gm, Refill(s) 6, USE 2 INHALATIONS BY MOUTH EVERY 6 HOURS, [facility] ([facility]), 163, cm, 11/04/22 15:03:00 EDT, Height/Length Dosing, 76, kg, 11/04/22 15:03:00 EDT, Weight Dosing Start Date: 11/09/22 Status: Ordered amLODIPine 5 mg oral tablet (20 sources) Dihydropyridine Calcium Channel Gabo Start: 04-24-2020 amLODIPine (NORVASC) 5 mg tablet Take 5 mg by mouth. 04/24/2020 Active Comment on above: Take 5 mg by mouth. {1 (Ascorbic Acid 7540 MG / POLYETHYLENE GLYCOL 3350 76264 MG / Potassium Chloride 1200 MG / Sodium Ascorbate 24197 MG / Sodium Chloride 3200 MG Powder for Oral Solution) / 1 (POLYETHYLENE GLYCOL 3350 874951 MG / Potassium Chloride 1000 MG / Sodium Chlori (5 sources) Osmotic Laxative, Vitamin C Start: 12-15-2022 Plenvu oral powder for reconstitution See Instructions, 1 EA, Refill(s) 0, Prior to colonoscopy., [id number], 163, cm, 12/15/22 12:03:00 EDT, Height/Length Dosing, 73.3, kg, 12/15/22 12:03:00 EDT, Weight Dosing Start Date: 12/15/22 Status: Ordered Aspir 81 (13 sources) Start: 04-24-2020 take 81 mg by mouth once daily Aspir 81 81 mg, Oral, Daily, Refills(s) 0, Prophylaxis Start Date: 04/24/20 Status: Ordered Start: 04-24-2020 take 1 mg by mouth once daily Aspir 81 mg, Oral, Daily, Refills(s) 0, Prophylaxis Start Date: 04/24/20 Status: Ordered Aspir-81 (5 sources) Aspir-81 Active aspirin 81 mg delayed release oral tablet (9 sources) Platelet Aggregation Inhibitor, Nonsteroidal Anti-inflammatory Drug aspirin, enteric coated (ASPIRIN, ENTERIC COATED) 81 mg EC tablet Take 81 mg by mouth. Active Comment on above: Take 81 mg by mouth. azithromycin 250 mg oral tablet (4 sources) Macrolide Antimicrobial Start: 023 Azithromycin 250 MG 2 tablet on the first day, then 1 tablet daily for 4 days Orally Once a day for 5 day(s) September, Active Butalbital-Acetaminoph en (5 sources) Butalbital-Aceta minop hen Active cephalexin 250 mg oral capsule (1 source) Cephalosporin Antibacterial Start: 022 take 1 capsule by mouth twice daily Keflex 250 mg Cap 250 mg = 1 cap(s), Oral, BID, Start 3 days before procedure, # 10 cap(s), Refills(s) 0, Pharmacy: [facility] #[id number], 167, cm, 04/27/22 8:46:00 EST, Height/Length Dosing, 87.1, kg, 04/27/22 8:46:00 EST, Weight Dosing Start Date: 04/27/22 Status: Ordered cholestyramine 4 g/5 g Oral Pwdr (1 source) Start: 023 cholestyramine 4 g/5 g Oral Pwdr 1 packet(s), Oral, TID, 90 EA, Refill(s) 0, [facility] ([facility] ), 167.6, cm, 08/24/22 8:10:00 EDT, Height/Length Dosing, 83.4, kg, 08/24/22 8:10:00 EDT, Weight Dosing Start Date: 08/24/22 Status: Ordered sugar-free cholestyramine resin 4000 mg powder for oral suspension (7 sources) Bile Acid Sequestrant Start: 024 cholestyramine 4 g/5 g Oral Pwdr 5 gram, 1 EA, Oral, BID, 630 gm, Refill(s) 0, one scoop BID 90 day supply, [facility] #[id number], 162, cm, 08/30/23 10:00:00 EDT, Height/Length Dosing, 78.4, kg, 08/30/23 10:00:00 EDT, Weight Dosing Start Date: 09/06/23 Status: Ordered Start: 05-25-2023 End: 08-23-2023 take 4 g by mouth once daily Questran 4 g/9 g oral pow shaye 4 gm, Oral, Daily, X 90 day(s), # 90 packet(s), Refills(s) 0, Pharmacy: [email or web address] #[id number], 163, cm, 05/25/23 12:33:00 EST, Height/Length Dosing, 79.8, kg, 05/25/23 12:33:00 EST, Weight Dosing Start Date: 05/25/23 Stop Date: 08/23/23 Status: Ordered clopidogrel 75 mg oral tablet (20 sources) P2Y12 Platelet Inhibitor Start: 04-24-2020 clopi dogrel (PLAVIX) 75 mg tablet 02/27/2023 Active Dicyclomine (3 sources) Anticholinergic Dicyclomine HCl Active dorzolamide 20 mg/ml ophthalmic solution (20 sources) Carbonic Anhydrase Inhibitor Start: 07-27-2023 Dorzolamide Active DROPS OPHTHALMIC July 27, 2023 12:00am Start: 04-24-2020 take 1 drop(s) into the eye(s) twice daily dorzolamide ophthalmic 2% solution 1 drop(s), OPTH, BID, Refill(s) 0, each eye Start Date: 04/24/20 Status: Ordered take 1 drop(s) into the eye(s) in the morning, then take 1 drop(s) into the eye(s) in the evening, then take 1 drop(s) into the eye(s) at bedtime dorzolamide (Trusopt) 2 % ophthalmic solution 1 drop in the morning and 1 drop in the evening and 1 drop before bedtime. Active Dorzolamide HCl 2 % Ophthalmic for 90 Active Dorzolamide HCl 2 % Ophthalmic for 90 Active Dorzolamide HCl 2 % Ophthalmic for 90 Active famotidine 20 mg oral tablet (10 sources) Histamine-2 Receptor Antagonist Start: 07-27-2023 End: 03-15-2024 take 1 tablet by mouth once daily at bedtime Pepcid 20 mg Tab 20 mg = 1 tab(s), Oral, Once a day (at bedtime), X 90 day(s), # 90 tab(s), Refills(s) 1, Pharmacy: [facility], 162, cm, 09/17/23 9:06:00 EDT, Height/Length Dosing, 79.7, kg, 09/17/23 9:06:00 EDT, Weight Dosing Start Date: 09/17/23 Stop Date: 03/15/24 Status: Ordered Fish Oils (7 sources) Start: 11-04-2022 [place]-3 Fish O il Oral, Daily, Refills(s) 0, Prophylaxis Start Date: 11/04/22 Status: Ordered Start: 11-04-2022 [place]-3 Fish O il Oral, Daily, Refills(s) 0 Start Date: 11/04/22 Status: Ordered fluticasone propionate 0.05 mg/actuat metered dose nasal spray (20 sources) Corticosteroid Start: 08-24-2022 fluticasone (F LONASE) 50 mcg/actuation nasal spray 1 Clark. 08/24/2022 Active Start: 08-24-2022 take 1 spray(s) nasa l route twice daily Flonase 0.05 mg/inh Clark 1 spray(s), Nasal, BID, 16 gram, Refill(s) 0, each nostril, [facility] ([facility] ), 167.6, cm, 08/24/22 8:10:00 EDT, Height/Length Dosing, 83.4, kg, 08/24/22 8:10:00 EDT, Weight Dosing Start Date: 08/24/22 Status: Ordered Start: 08-23-2022 Start: 04-24-2020 take 50 ug by inhala tion twice daily fluticasone propionate 50 mcg, Inhalation, BID, Refills(s) 0 Start Date: 04/24/20 Status: Ordered take 1 spray(s) nasa l route in the morning fluticasone (Flonase) 50 MCG/ACT nasal spray Administer 1 spray into each nostril in the morning. Shake gently. Before first use, prime pump. After use, clean tip and replace cap.. Active Fluticasone Prop ionate 50 MCG/ACT Nasal for 30 Active Comment on above: 1 Clark. fluticasone 0.05 mg/inh Nasal Clark (1 source) Start: 04-24-2020 fluticasone 0.05 mg/inh Nasal Clark Daily, Refill(s) 0 Start Date: 04/24/20 Status: Ordered furosemide 20 mg oral tablet (20 sources) Loop Diuretic Start: 04-24-2020 furosemide (LASIX) 20 mg tablet Take 20 mg by mouth. 04/24/2020 Active Furosemide Activ e Comment on above: Take 20 mg by mouth. gabapentin 600 mg oral tablet (19 sources) Anti-epileptic Agent Start: 04-24-2020 take 1 tablet by mouth three times daily gabapentin 600 mg Tab 600 mg, Oral, TID, # 270 EA, Refills(s) 0, Pharmacy: [facility], 163, cm, 02/25/23 13:29:00 EDT, Height/Length Dosing, 78.8, kg, 02/25/23 13:29:00 EDT, Weight Dosing Start Date: 03/09/23 Status: Ordered Gabapentin 300 M G Oral for 90 Active Comment on above: Take 1 tablet by peggy th. glimepiride 2 mg oral tablet (5 sources) Sulfonylurea Start: 01-18-2019 glimepiride (AMARYL) 2 mg tablet Take 2 mg by mouth. 01/19/2019 Active Comment on above: Take 2 mg by mouth. irbesartan 300 mg oral tablet (20 sources) Angiotensin 2 Receptor Gabo Start: 04-24-2020 irbesartan (AVAPRO) 300 mg tablet Take 300 mg by mouth. 04/24/2020 Active Comment on above: Take 300 mg by mouth . 24 hr isosorbide mononitrate 30 mg extended release oral tablet (20 sources) Nitrate Vasodilator Start: 07-27-2023 Isosorbide Mononitrate Active MG PO July 27, 2023 12:00am Start: 04-24-2020 isosorbide mon onitrate ER (IMDUR) 30 mg 24 hr tablet Take 30 mg by mouth. 08/31/2022 Active Comment on above: Take 30 mg by mouth. iv contrast (will be provided with radiology test) (2 sources) Start: iv contrast (will be provided with radiology test) Indications: IPMN (intraductal papillary mucinous neoplasm) MRI PANC/DEANNE Inject, intravenously, once for 1 dose. No IV access, insert saline lock prior to the beginning of sedation, infusion, injection of imaging exam. Discontinue saline lock post exam. If Pt. has a central line or IVAD, may access for administration according to line specific nursing protocol. Once exam is complete flush line and de-access according to line specific nursing protocol in the MR contrast administration guidelines link. 1 Each 02/01/2024 Active latanoprost 0.05 mg/ml ophthalmic solution (20 sources) Prostaglandin Analog Start: 4 take 1 drop(s) into the eye(s) once daily Latanoprost Active DROPS OPHTHALMIC Daily July 27, 2023 12:00am Start: 05-19-2023 latanoprost Op th 0.005% Janee Refill(s) 0, 10 mL, 0 Refill(s) Start Date: 05/19/23 Status: Ordered Start: 04-24-2020 latanoprost op hthalmic qPM, Refill(s) 0, Dry eyes Start Date: 04/24/20 Status: Ordered Start: 04-24-2020 latanoprost op hthalmic qPM, Refill(s) 0 Start Date: 04/24/20 Status: Ordered take 1 drop(s) into the eye(s) once daily at bedtime latanoprost (XALATAN) 0.005 % ophthalmic solution 1 Drop daily at bedtime. Active take 1 drop(s) into the eye(s) at bedtime latanoprost (Xalatan) 0.005 % ophthalmic solution 1 drop at bedtime. Active Latanoprost 0.00 5 % Ophthalmic for 90 Active Latanoprost 0.00 5 % Ophthalmic for 90 Active Comment on above: 1 Drop daily at bedt olivia. loperamide hydrochloride 2 mg oral tablet (20 sources) Opioid Agonist Start: 02-21-2021 loperamide HCl (IMODIUM) 2 mg tab Take 2 mg by mouth. 02/21/2021 Active take 1 tablet by peggy th four times daily as needed for diarrhea loperamide (Imodium A-D) 2 MG tablet Ray e 2 mg by mouth 4 (four) times a day as needed for diarrhea. Active Loperamide A-D A ctive Comment on above: Take 2 mg by mouth. Magnesium (5 sources) Magnesium Active metFORMIN hydrochloride 500 mg oral tablet (20 sources) Biguanide Start: 05-31-2023 take 1 tablet by mouth once daily metformin 500 mg ER Tab 500 mg = 1 tab(s), Oral, Daily, # 180 tab(s), Refills(s) 0, Pharmacy: [facility] #[id number], 163, cm, 05/31/23 10:14:00 EST, Height/Length Dosing, 80.2, kg, 05/31/23 10:14:00 EST, Weight Dosing Start Date: 05/31/23 Status: Ordered Start: 05-18-2023 take 1 tablet by peggy th twice daily metFORMIN XR (Glucophage-XR) 500 MG 24 hr tablet Indications: Type 2 diabetes mellitus with hyperglycemia, without long-term current use of insulin ([facility]) TAKE 1 TABLET BY MOUTH TWICE DAILY 180 tablet 3 05/18/2023 Active Start: 04-24-2020 take 1 mg by mouth t wice daily metformin 500 mg ER Tab mg tab(s), Oral, BID, Refills(s) 0, High blood sugar Start Date: 04/24/20 Status: Ordered metFORMIN HCl ER 500 MG Oral for 90 Active Comment on above: Take 500 mg by mouth . methylPREDNISolone 4 mg oral tablet (4 sources) Corticosteroid Start: 023 Medrol 4 MG as directed Orally as directed for 6 days September, Active Misc Medication (1 source) Start: 024 Misc Medication Transdermal Therapeutics up to four times per day: Meloxicam 0.5%/ Doxepin 3%/ Amantidine 3%/Dextromethorpha n 2%/ Lidocaine 2% Start Date: 11/08/23 Status: Ordered Multiple Vitamin (multivitamin) tablet (5 sources) take 1 tablet by mouth in the morning Multiple Vitamin (multivitamin) tablet Take 1 tablet by mouth in the morning. Active Multivitamin preparation (5 sources) Multivitamin Active Multivitamin, Therapeutic w/ Minerals (13 sources) Start: 020 Multivitamin, Therapeutic w/ Minerals Oral, Daily, Refill(s) 0, Prophylaxis Start Date: 04/24/20 Status: Ordered [place] 3 (5 sources) [place] 3 Active omega-3 acid ethyl esters (fdc) 1000 mg oral capsule (5 sources) take 1 capsule by mouth in the morning omega-3 acid ethyl esters (Lovaza) 1 g capsule Take 1 g by mouth in the morning and 1 g before bedtime. Active omeprazole 40 mg delayed release oral capsule (20 sources) Proton Pump Inhibitor Start: End: 024 omeprazole (PRILOSEC) 40 mg capsule Take 40 mg by mouth. 01/06/2023 Active Start: 04-27-2022 omeprazole Ora l, Daily, Refills(s) 0 Start Date: 04/27/22 Status: Ordered Omeprazole Activ e Comment on above: Take 40 mg by mouth. pantoprazole 20 mg delayed release oral tablet (7 sources) Proton Pump Inhibitor Start: take 1 mg by mouth once daily Pantoprazole [address] Tab mg tab(s), Oral, Daily, Refills(s) 0 Start Date: 10/31/20 Status: Ordered Pantoprazole Sod ium Not-Taking/PRN Pantoprazole Sod ium Not-Taking Pantoprazole Sod ium Active Psyllium (12 sources) Start: 03-10-2023 take 3 capsules by m outh once daily psyllium (Metamucil 3 in 1 Daily Fiber) 400 MG capsule Take 3 capsules by mouth Daily 03/10/2023 Active Start: 03-10-2023 Metamucil Refi lls(s) 0, Constipation Start Date: 03/10/23 Status: Ordered Start: 03-10-2023 Metamucil Refi lls(s) 0 Start Date: 03/10/23 Status: Ordered rimegepant 75 mg disintegrating oral tablet (4 sources) Start: 02-16-2024 End: 03-17-2024 Rimegepant Sulfate (Nurtec) 75 MG tablet dispersible Indications: Migraine without aura and without status migrainosus, not intractable (CMS/HCC) 1 tab PO prn migraine. 16 tablet 2 02/16/2024 Active rosuvastatin calcium 10 mg oral tablet (20 sources) HMG-CoA Reductase Inhibitor Start: 04-24-2020 rosuvastatin (CRESTO R) 10 mg tablet Take 10 mg by mouth. 11/10/2022 Active Crestor Active Comment on above: Take 10 mg by mouth. sotalol hydrochloride 80 mg oral tablet (20 sources) Antiarrhythmic Start: 04-24-2020 sotalol (BETAPACE) 80 mg tablet Take 80 mg by mouth. 04/24/2020 Active Start: 04-24-2020 take 0.5 tablet by m outh twice daily sotalol 80 mg Tab 0.5 tab, Oral, BID, Refills(s) 0, High blood pressure Start Date: 04/24/20 Status: Ordered Comment on above: Take 80 mg by mouth. sucralfate 1000 mg oral tablet (16 sources) Aluminum Complex Start: 12-15-2022 sucralfate (CARAFATE) 1 gram tablet Take 1 g by mouth. 12/15/2022 Active Start: 12-15-2022 sucralfate 1 g Tab Refills(s) 0, Control of stomach acid Start Date: 12/15/22 Status: Ordered Start: 04-27-2022 sucralfate 1 g Tab gm tab(s), Oral, QIDACHS, Refills(s) 0 Start Date: 04/27/22 Status: Ordered Sucralfate Not-T aking/PRN Sucralfate Not-T aking Sucralfate Activ e Comment on above: Take 1 g by mouth. tiZANidine 4 mg oral tablet (20 sources) Central alpha-2 Adrenergic Agonist Start: 4 take 1 tablet by mouth at bedtime tiZANidine (Zanaflex) 4 MG tablet Indications: Chronic bilateral low back pain, unspecified whether sciatica present TAKE 1/2 TO 1 TABLET BY MOUTH AT BEDTIME 90 tablet 2 01/18/2024 Active Start: 02-21-2021 take 1 tablet by peggy once daily tiZANidine 4 mg Tab 4 mg = 1 tab(s), Oral, Daily, Refills(s) 0, Spasm Start Date: 02/21/21 Status: Ordered tiZANidine HCl ( ZANAFLEX) 4 mg capsule Take 4 mg by mouth. Active tiZANidine HCl A ctive Comment on [...] (5 sources) Tylenol PM Extra Strength Active zolpidem tartrate 5 mg oral tablet (4 sources) gamma-Aminobutyric Acid-ergic Agonist zolpidem (AMBIEN) 5 mg tablet Take 5 mg by mouth. Active Comment on above: Take 5 mg by mouth. zonisamide 25 mg oral capsule (18 sources) Anti-epileptic Agent Start: Zonisamide Active MG PO July 27, 2023 12:00am Start: 02-15-2023 zonisamide (ZO NEGRAN) 25 mg capsule 03/23/2023 Active Completed/Discontinued Medications Medication Drug Class(es) Dates Sig (Normalized) Sig (Original) dexamethasone 6 mg oral tablet (6 sources) Corticosteroid Start: 11-29-2021 take 1 tablet by mouth every twenty-four hours dexAMETHasone 6 MG 1 tablet Orally Once a day for 5 day(s) Nov, Not-Taking/PRN Docusate (5 sources) Docusate Sodium Not-Taking/PRN Docusate Sodium Not-Taking Docusate Sodium Active Prazosin (5 sources) alpha-Adrenergic Gabo Prazosi n HCl Not-Taking/PRN Prazosin HCl Not -Taking Prazosin HCl Act rosa temazepam 15 mg oral capsule (6 sources) Benzodiazepine take 1 capsule by mouth every twenty-four hours Temazepam 15 MG 1 capsule at bedtime as needed Orally Once a day Not-Taking/PRN Problems Active Problems Problem Classification Problem Date Documented Da te Episodic/Chronic Aortic; peripheral; and visceral artery aneurysms (6 sources) Ectasia of thoracic aorta; Translations: [Thoracic aortic ectasia] Onset: 4 11-08-2023 Chronic Comment on above: added per 11/05/2023 query response. Cancer of prostate (5 sources) Malignant tumor of prostate; Translations: [Malignant neoplasm of prostate] Onset: 2 01-27-2024 Chronic Cardiac dysrhythmias (11 sources) Ventricular tachycardia; Translations: [Ventricular tachycardia] Onset: 2 07-27-2023 Chronic Conditions associated with dizziness or vertigo (2 sources) Vertigo; Translations: [Dizziness and giddiness] 02-16-2024 Episodic Conduction disorders (20 sources) Cardiac pacemaker in situ; Translations: [Presence of cardiac pacemaker] Onset: 1 04-24-2020 Chronic Coronary atherosclerosis and other heart disease (17 sources) Coronary arteriosclerosis; Translations: [Atherosclerotic heart disease of [place] coronary artery without angina pectoris] Onset: 9 Chronic Comment on above: noted in 11/10/2022 Cardiology Consult Note page 11. added per OP CDI policy. Diabetes mellitus with complications (20 sources) Neuropathy due to diabetes mellitus; Translations: [Autonomic neuropathy due to type 2 diabetes mellitus] Onset: 2 04-24-2020 Chronic Diabetes mellitus without complication (20 sources) Diabetes mellitus; Translations: [Type 2 diabetes mellitus without complication] Onset: 3 04-24-2020 Chronic Comment on above: linked DM with HLD p er OP CDI policy. Disorders of lipid metabolism (20 sources) Hypercholesterolemia; Translations: [Pure hypercholesterolemia, unspecified] Onset: 2 04-24-2020 Chronic Diverticulosis and diverticulitis (9 sources) Diverticular disease; Translations: [Diverticulosis of intestine, part unspecified, without perforation or abscess without bleeding] Onset: 4 06-25-2023 Chronic Esophageal disorders (20 sources) Gastroesophageal reflux disease with apnea; Translations: [Gastro-esophageal reflux disease without esophagitis] Onset: 3 04-24-2020 Chronic Essential hypertension (20 sources) Hypertensive disorder; Translations: [Essential hypertension] Onset: 2 04-24-2020 Chronic Glaucoma (18 sources) Glaucoma; Translations: [Unspecified glaucoma] Onset: 2 04-24-2020 Chronic Headache; including migraine (7 sources) Migraine; Translations: [Migraine, unspecified, not intractable, without status migrainosus] Onset: 2 01-27-2024 Chronic Heart valve disorders (10 sources) Aortic valve regurgitation; Translations: [Nonrheumatic aortic (valve) insufficiency] Onset: 9 01-27-2024 Chronic Hemorrhoids (9 sources) Hemorrhoids; Translations: [Unspecified hemorrhoids] Onset: 4 06-25-2023 Episodic Joint disorders and dislocations; trauma-related (5 sources) Derangement of right knee; Translations: [Unspecified internal derangement of right knee] Onset: 4 01-27-2024 Chronic Lymphadenitis (20 sources) Lymphadenopathy; Translations: [Cervical lymphadenopathy] Onset: 3 02-15-2023 Episodic Neoplasms of unspecified nature or uncertain behavior (4 sources) Benign neoplasm of pancreas; Translations: [Neoplasm of unspecified behavior of digestive system] 04-02-2023 Episodic Nutritional deficiencies (20 sources) Vitamin D deficiency; Translations: [Vitamin D deficiency, unspecified] Onset: 2 04-24-2020 Chronic Osteoarthritis (20 sources) Osteoarthritis; Translations: [Arthritis of right ankle] Onset: 2 04-24-2020 Chronic Other aftercare (1 source) Other 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 termite (current) drug therapy; Translations: [OTH [facility] CURRENT DRUG THERAPY] Onset: 3 Episodic Other aftercare (1 source) alf (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; Translations: [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] Onset: 3 Episodic Other aftercare (1 source) alf (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 of antithrombotics/antipl atelets; Translations: [[facility] ANTITHROMBOT/ANTIPLATL ETS] Onset: 3 Episodic Other aftercare (1 source) vermin 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 (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 of oral hypoglycemic drugs; Translations: [[facility] USE ORAL HYPOGLYCEMIC DX] Onset: 3 Episodic Other and unspecified benign neoplasm (11 sources) History of polyp of colon; Translations: [Personal history of colonic polyps] Onset: 4 Episodic Other and unspecified benign neoplasm (8 sources) Polyp of colon; Translations: [Polyp of colon] Onset: 4 06-25-2023 Episodic Other bone disease and musculoskeletal deformities (5 sources) Osteochondritis dissecans of right ankle; Translations: [Osteochondritis dissecans, right ankle and joints of right foot] Onset: 4 01-27-2024 Chronic Other circulatory disease (1 source) Raynaud's syndrome without gangrene; Translations: [RAYNAUDS SYNDROME WITHOUT GANGRENE] Onset: 2 Chronic Other connective tissue disease (5 sources) Disorder of musculoskeletal system; Translations: [Other specified disorders of synovium, right ankle and foot] Onset: 4 01-27-2024 Episodic Other diseases of veins and lymphatics (5 sources) Peripheral venous insufficiency; Translations: [Venous insufficiency (chronic) (peripheral)] Onset: 4 01-27-2024 Episodic Other ear and sense organ disorders (5 sources) Hearing loss; Translations: [Unspecified hearing loss, unspecified ear] Onset: 2 01-27-2024 Chronic Other ear and sense organ disorders (1 source) Impacted cerumen, bilateral; Translations: [Impacted cerumen] 07-27-2023 Episodic Other gastrointestinal disorders (1 source) Intestinal malabsorption; 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] Onset: 4 Chronic Other gastrointestinal disorders (5 sources) Non-infective diarrhea; 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] Onset: 4 01-27-2024 Chronic Other gastrointestinal disorders (1 source) Heartburn 10-31-2020 Episodic Other gastrointestinal disorders (6 sources) Hard stool 12-15-2022 Episodic Other gastrointestinal disorders (1 source) Digestive system finding; Translations: [Other specified symptoms and signs involving the digestive system and abdomen] Onset: 3 Episodic Other gastrointestinal disorders (2 sources) Abnormal feces; Translations: [Other fecal abnormalities] Onset: 3 Episodic Other gastrointestinal disorders (3 sources) Loose stool 03-10-2023 Episodic Other gastrointestinal disorders (1 source) Non-infective diarrhea 05-25-2023 Episodic Other gastrointestinal disorders (2 sources) Swollen abdomen; Translations: [Abdominal distension (gaseous)] Onset: 4 Episodic Other gastrointestinal disorders (4 sources) Diarrhea 06-25-2023 Episodic Other lower respiratory disease (3 sources) Apnea, not elsewhere classified Episodic Other nervous system disorders (11 sources) Polyneuropathy associated with another disorder; Translations: [Polyneuropathy in diseases classified elsewhere] Onset: 4 07-27-2023 Chronic Other nervous system disorders (1 source) 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 Other nervous system disorders (1 source) Other chronic pain; Translations: [OTHER CHRONIC PAIN] Onset: 2 Chronic Other nervous system disorders (5 sources) Carpal tunnel syndrome of left wrist; Translations: [Carpal tunnel syndrome, left upper limb] Onset: 4 01-27-2024 Chronic Other nervous system disorders (5 sources) Carpal tunnel syndrome of right wrist; Translations: [Carpal tunnel syndrome, right upper limb] Onset: 4 01-27-2024 Chronic Other nervous system disorders (5 sources) Neuropathy; Translations: [Polyneuropathy, unspecified] Onset: 2 01-27-2024 Chronic Other nervous system disorders (5 sources) Normal pressure hydrocephalus; Translations: [(Idiopathic) normal pressure hydrocephalus] Onset: 2 01-27-2024 Chronic Other nervous system disorders (2 sources) Polyneuropathy; Translations: [Polyneuropathy, unspecified] 02-16-2024 Chronic Other nervous system disorders (12 sources) Numbness of hand 08-24-2022 Episodic Other nervous system disorders (5 sources) Paresthesia of skin; Translations: [Disturbance of skin sensation] Onset: 4 01-27-2024 Episodic Other non-traumatic joint disorders (4 sources) Other instability, right ankle; Translations: [OTHER INSTABILITY RIGHT ANKLE] Onset: 3 Episodic Other non-traumatic joint disorders (5 sources) Arthralgia of the ankle and/or foot; Translations: [Pain in right ankle and joints of right foot] Onset: 4 01-27-2024 Episodic Other nutritional; endocrine; and metabolic disorders (6 sources) Overweight in adulthood with body mass index of 25 or more but less than 30; Translations: [Body mass index (BMI) 29.0-29.9, adult] Onset: 4 11-08-2023 Episodic Other screening for suspected conditions (not mental disorders or infectious disease) (1 source) Screening for malignant neoplasm of colon done; Translations: [Encounter for screening for malignant neoplasm of colon] Onset: 3 Episodic Other upper respiratory infections (1 source) Acute upper respiratory infection, unspecified; Translations: [Acute upper respiratory infections of unspecified site] 07-27-2023 Episodic Phlebitis; thrombophlebitis and thromboembolism (1 source) Personal history of other venous thrombosis and embolism; Translations: [PERS HX OTH VENOUS THROMBOSIS AND EMBO] Onset: 3 Episodic Pneumonia (except that caused by tuberculosis or sexually transmitted disease) (1 source) Pneumonia (except that caused by tuberculosis or sexually transmitted disease); Translations: [PNEUMONIA D/T CORONAVIRUS DIS 2019] Onset: 3 Residual codes; unclassified (13 sources) Sleep apnea 04-24-2020 Chronic Residual codes; unclassified (11 sources) Obstructive sleep apnea syndrome; Translations: [Obstructive sleep apnea (adult) (pediatric)] Onset: 2 07-27-2023 Chronic Residual codes; unclassified (11 sources) Daytime somnolence; Translations: [Other hypersomnia] Onset: 4 07-27-2023 Chronic Residual codes; unclassified (5 sources) Obstructive sleep apnea (adult) (pediatric); Translations: [Obstructive sleep apnea (adult)(pediatric)] Chronic Residual codes; unclassified (1 source) Other hypersomnia Chronic Residual codes; unclassified (1 source) Sleep apnea, unspecified; Translations: [SLEEP APNEA UNSPECIFIED] Onset: 3 Chronic Residual codes; unclassified (1 source) Obstructive sleep apnea (adult)(pediatric); Translations: [Obstructive sleep apnea (adult) (pediatric)] Onset: 3 Chronic Residual codes; unclassified (6 sources) Central sleep apnea syndrome; 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] Onset: 4 09-02-2023 Chronic Residual codes; unclassified (1 source) Primary central sleep apnea; Translations: [Unspecified sleep apnea] 09-02-2023 Chronic Residual codes; unclassified (1 source) Acquired absence of other genital organ(s); Translations: [ACQUIRED ABSENCE OTH GENITAL ORGANS] Onset: 3 Episodic Spondylosis; intervertebral disc disorders; other back problems (20 sources) Spondylosis without myelopathy or radiculopathy, lumbar region; Translations: [Other intervertebral disc degeneration, lumbar region] Onset: 2 Chronic Comment on above: noted in 09/15/2023 Pain Management Consult note page 5. added per OP CDI policy. Unclassified (4 sources) LOW BACK PAIN, UNSPECIFIED; [...] tract infectious disease 04-27-2022 Episodic Viral infection (10 sources) Disease caused by 2019-nCoV; Translations: [COVID-19] Onset: 3 Past or Other Problems Problem Classification Problem Date Documented Da te Episodic/Chronic Abdominal pain (20 sources) Lower abdominal pain; Translations: [Right flank pain] Onset: 04-03-2022 Resolved: 01-27-2024 04-25-2020 Episodic Biliary tract disease (5 sources) Gallstone; Translations: [Calculus of gallbladder without cholecystitis without obstruction] Onset: 04-03-2022 Resolved: 01-27-2024 01-27-2024 Episodic Cancer of prostate (20 sources) History of malignant neoplasm of prostate; Translations: [Personal history of malignant neoplasm of prostate] Onset: 03-10-2022 03-21-2021 Episodic Gastroduodenal ulcer (except hemorrhage) (18 sources) Peptic ulcer; Translations: [Peptic ulcer, site unspecified, unspecified as acute or chronic, without hemorrhage or perforation] Onset: 04-03-2022 Resolved: 01-27-2024 10-31-2020 Chronic Genitourinary symptoms and ill-defined conditions (20 sources) Incontinence; Translations: [Incontinence without sensory awareness] Onset: 01-27-2024 Resolved: 01-27-2024 04-27-2022 Chronic Inflammatory conditions of male genital organs (17 sources) Prostatitis; Translations: [Inflammatory disease of prostate, unspecified] Onset: 04-14-2023 04-27-2022 Episodic Mycoses (5 sources) Onychomycosis; Translations: [Tinea unguium] Onset: 01-27-2024 Resolved: 01-27-2024 01-27-2024 Episodic Nonspecific chest pain (18 sources) Chest wall pain; Translations: [Other chest pain] Onset: 04-03-2022 Resolved: 01-27-2024 02-21-2021 Episodic Other connective tissue disease (2 sources) [...] RIGHT UPPER ARM] Onset: 04-20-2022 Episodic Other connective tissue disease (5 sources) Pain in limb; Translations: [Pain in unspecified limb] Onset: 01-27-2024 Resolved: 01-27-2024 01-27-2024 Episodic Other gastrointestinal disorders (4 sources) Diarrhea, unspecified; Translations: [DIARRHEA UNSPECIFIED] Onset: 03-06-2022 Episodic Other gastrointestinal disorders (14 sources) Dysphagia; Translations: [Dysphagia, unspecified] Onset: 01-12-2023 12-15-2022 Episodic Other gastrointestinal disorders (16 sources) Urgent desire for stool; Translations: [Fecal urgency] Onset: 01-12-2023 Resolved: 01-27-2024 12-15-2022 Episodic Other gastrointestinal disorders (13 sources) Irregular bowel habits; Translations: [Other specified symptoms and signs involving the digestive system and abdomen] Onset: 04-14-2023 3 Episodic Other gastrointestinal disorders (9 sources) Abdominal bloating; Translations: [Abdominal distension (gaseous)] Onset: 01-27-2024 Resolved: 01-27-2024 06-25-2023 Episodic Other gastrointestinal disorders (5 sources) Smearing feces; Translations: [Fecal smearing] Onset: 04-03-2022 Resolved: 01-27-2024 01-27-2024 Episodic Other nervous system disorders (5 sources) Entrapment of left ulnar nerve; Translations: [Lesion of ulnar nerve, left upper limb] Onset: 01-27-2024 Resolved: 01-27-2024 01-27-2024 Chronic Other nervous system disorders (5 sources) Entrapment of right ulnar nerve; Translations: [Lesion of ulnar nerve, right upper limb] Onset: 01-27-2024 Resolved: 01-27-2024 01-27-2024 Chronic Other nervous system disorders (1 source) Unspecified disturbances of skin sensation; Translations: [UNS DISTURBANCES OF SKIN SENSATION] Onset: 04-20-2022 Episodic Other nervous system disorders (5 sources) Unsteady when standing; Translations: [Unsteadiness on feet] Onset: 01-27-2024 Resolved: 01-27-2024 01-27-2024 Episodic Other non-epithelial cancer of skin (5 sources) Malignant neoplasm of skin; Translations: [Unspecified malignant neoplasm of skin, unspecified] Onset: 04-03-2022 01-27-2024 Episodic Other nutritional; endocrine; and metabolic disorders (18 sources) Body mass index 30+ - obesity; Translations: [Obesity, unspecified] Onset: 04-03-2022 Resolved: 01-27-2024 02-21-2021 Chronic Other skin disorders (4 sources) Nail dystrophy; Translations: [NAIL DYSTROPHY] Onset: 06-11-2022 Episodic Other skin disorders (1 source) Other nail disorders; Translations: [OTHER NAIL DISORDERS] Onset: 06-16-2022 Episodic Other skin disorders (13 sources) Mass of neck; Translations: [Localized swelling, mass and lump, neck] Onset: 04-14-2023 02-15-2023 Episodic Otitis media and related conditions (9 sources) Otitis media; Translations: [Otitis media, unspecified, unspecified ear] Onset: 04-14-2023 Resolved: 01-27-2024 02-15-2023 Episodic Pancreatic disorders (not diabetes) (20 sources) Cyst of pancreas; Translations: [Cyst of pancreas] Onset: 01-12-2023 Episodic Residual codes; unclassified (15 sources) FH: Stomach cancer; Translations: [Family history of malignant neoplasm of digestive organs] Onset: 04-14-2023 12-15-2022 Episodic Residual codes; unclassified (5 sources) Insomnia; Translations: [Insomnia, unspecified] Onset: 04-03-2022 01-27-2024 Episodic Residual codes; unclassified (5 sources) Edema of lower extremity; Translations: [Localized edema] Onset: 04-26-2019 01-27-2024 Episodic Skin and subcutaneous tissue infections (10 sources) Cellulitis of left toe; Translations: [Cellulitis and abscess of toe, unspecified] Onset: 01-27-2024 Resolved: 01-27-2024 01-27-2024 Episodic Spondylosis; intervertebral disc disorders; other back problems (18 sources) Muscle spasm of back; Translations: [Radiculopathy, cervical region] Onset: 11-13-2021 Episodic Substance-related disorders (12 sources) Hypnotic dependence; Translations: [Sedative, hypnotic or anxiolytic dependence, uncomplicated] Onset: 01-27-2024 Resolved: 01-27-2024 Chronic Unclassified (1 source) Paroxysmal ventricular tachycardia I47.29 Unclassified (1 source) Acute cough R05.1 Unclassified (1 source) LOW BACK PAIN, UNSPECIFIED; Translations: [LOW BACK PAIN, UNSPECIFIED] Onset: 08-25-2022 Viral infection (5 sources) Disease caused by 2019-nCoV; Translations: [COVID-19] Onset: 11-10-2022 Resolved: 01-27-2024 01-27-2024 Episodic Results Test Name Value Interpretation Reference Range Facility CT SOFT TISSUE NECK W IV CON TRASTon 02-14-2024 CT SOFT TISSUE NECK W IV CONTRAST TITLE OF EXAM: CT - CT NECK WITH CONTRAST REASON FOR EXAM: Parotid mass right side of neck TECHNIQUE: Axial CT of the neck following the intravenous administration of 100 cc Isovue-300 COMPARISON: Neck ultrasound 01/20/2024 FINDINGS: Aerodigestive tract: The nasopharynx, oropharynx, hypopharynx, larynx, trachea, and esophagus are normal. Lymph nodes: Ovoid, enlarged right level 2B lymph node, 1.0 x 1.2 x 1.5 cm (TV/AP/CC) (series 2/image 45 and 300/71). Prominent but subcentimeter left level 2A lymph node, 0.9 cm short axis (2/46). Salivary glands: Mildly hyperattenuating and/or enhancing nodule of the anterior aspect of the superficial lobe of the right parotid gland measures approximately 0.6 x 0.7 x 0.8 cm (TV/AP/CC) (series 2/image 39 and 300/49). Normal-appearing lymph node inferior of the left parotid gland. Otherwise normal parotid and submandibular glands. Thyroid: Normal. Soft tissues of the neck: Prominent lymph nodes as above. Otherwise normal. Visualized thorax: Subjectively mild apical centrilobular emphysema. Vascular structures: Moderate nonconcentric calcific arteriosclerosis of the cavernous internal carotid arteries. Associated stenosis cannot be accurately determined. Moderate left and mild to moderate right carotid bulb calcification/atheroscleroti c plaque. There appears to be approximately 50% stenosis of the left internal carotid artery at its origin. No significant appreciable stenosis of the right ICA. Paranasal sinuses, face, orbits, and skull (included portions): Bilateral aphakia/pseudophakia. Cervical spine: No fracture or significant listhesis. No concerning focal osseous lesion. Severe myers cervical degenerative changes. C3-5 anterior fixation construct and intervertebral prostheses without evidence of complication. IMPRESSION: 1. Subcentimeter nodule arising from the anterior aspect of the superficial lobe of the right thyroid gland or superficial aspect of the masseter muscle. Nonspecific with numerous benign and malignant considerations. Consider ultrasound-guided FNA or follow-up ultrasound. 2. Enlarged right level 2B and prominent left level 2A lymph nodes, reactive versus neoplastic. 3. Atherosclerotic disease as described. There appears to be approximately 50% stenosis of the left internal carotid artery at its origin. 4. Subjectively mild apical pulmonary centrilobular emphysema. DICTATED ON: 02/14/2024 10:11 AM This report has been electronically signed in approved by the interpreting radiologist. Electronically Signed Edgard Scales M.D. 2024-02-14 10:23:31 Normal Not Available Comment on above: Order Comment: CT S/ T Neck W at [facility]. Please call patient to schedule. MRI Cholangiogram Pancreatog percy ([facility])on 02-03-2024 MRI Cholangiogram Pancreatography ([facility]) Exam Date/Time: 11/09/2023 11:48 EDT Reason for Exam: K86.2;Other (please specify) Addendum Per [place] guidelines, for cysts less than 1.0 cm, it is recommended to perform follow-up MRCP in 6 months, then every 2 years if there is no change in size. Ordering Provider: Inez Henderson FINAL REPORT Dictated: 02/03/2024 5:33 pm Salomón Ballard MD. Signed (Electronic Signature): 02/03/2024 5:33 pm Signed by: Salomón Ballard MD Transcribed by: SHAUNNA Technologist: ROZ Report IMPRESSION: 6 mm cyst within the pancreatic body, unchanged from 12/17/2022, and probably representing side branch IPMN. Cholecystectomy. No bile duct dilation. EXAMINATION: MRI Cholangiogram Pancreatography ([facility]) HISTORY: Right upper quadrant pain, worsening. History of pancreatic cyst. History of cholecystectomy. TECHNIQUE: Multiplanar MRI with multiple sequences without contrast. 3-D images were post-processed on a dedicated off-line workstation and were reviewed by the interpreting physician. Comparison: Ultrasound 12/17/2022. Contrast: IV contrast: None. Oral Contrast: None RESULT: Liver: No suspicious lesions within the imaged liver. Tiny cyst. Biliary: Cholecystectomy. No bile duct dilation. No suspicious filling defects within the biliary system. Spleen: No mass or splenomegaly. Pancreas: 6 mm cyst within the proximal body adjacent to the duct. Pancreas otherwise Report unremarkable. No pancreatic duct dilation. Adrenals: No mass. Kidneys: No hydronephrosis. No suspicious lesion. GI tract: No bowel dilation in the visualized bowel. Colonic diverticulosis. Lymph nodes: No lymphadenopathy. Mesentery / Peritoneum / Retroperitoneum: No ascites or mass. Vasculature: The celiac axis and SMA are patent. The portal vein and branches, splenic vein, SMV, and hepatic veins are patent. Bones/Soft Tissues: Unremarkable within limits of the study. Lower chest: Trace bilateral pleural effusions. Bibasilar opacity versus atelectasis. Ordering Provider: Inez Henderson FINAL REPORT Dictated: 11/12/2023 11:17 am Salomón Ballard MD Signed (Electronic Signature): 11/12/2023 11:17 am Signed by: Salomón Ballard MD Transcribed by: SHAUNNA Technologist: KMLisette Report last revised on 02/03/2024 17:33 EDT by Salomón Ballard MD [facility] 02-02-2024 [facility] Telephone ([facility]) JEREMIE BENNETT ([id number]) 1940 M Date Time Provider Department 02/02/24 VAISHALI PRINGLE [facility] During your visit today, we recorded the following information about you: Carlitos Beckman 02/02/2024 8:59 AM Signed Call to patient to discuss plan of care. Surveillance imaging needed to evaluate pancreas cyst. Dx: IPMN Per Dr. Vaishali Pringle- recommended repeat MRI in 1 year Last imaging 02/17/2024 Orders placed: MRI Pancreas w/wo IVCON Patient's local GI ordered MRI and it was completed in 12/2023 at [facility]. Our office will request results for Dr. Pringle's review. Follow up will be determined upon Dr. Pringle's review of results. Carlitos Beckman 02/04/2024 9:19 AM Signed Surveillance imaging completed at OSH for IPMN surveillance. Carlitos Beckman 02/07/2024 9:31 AM Signed IPMN surveillance. 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 No IV access, insert saline lock prior to the beginning of sedation, infusion, injection of imaging exam. Discontinue saline lock post exam. If Pt. has a central line or IVAD, may access for administration according to line specific nursing protocol. Once exam is complete flush line and de-access according to line specific nursing protocol in the MR contrast administration guidelines link. - isosorbide mononitrate ER (IMDUR) 30 mg 24 hr tablet Take 30 mg by mouth. - clopidogrel (PLAVIX) 75 mg tablet - furosemide (LASIX) 20 mg tablet Take 20 mg by mouth. - fluticasone (FLONASE) 50 mcg/actuation nasal spray 1 Clark. - omeprazole (PRILOSEC) 40 mg capsule Take [...] as needed. Problem List As Of Date: 02/02/2024 (None) Encounter Status:Closed by CARLITOS BECKMAN on 02/18/24 [facility] Ambulatory Visit Summaryon 0 02-01-2024 Ambulatory Visit Summary Ambulatory Visit Summary JEREMIE BENNETT :1940 Visit Date:02/01/2024 Ambulatory Visit Instructions Your Diagnosis Cervical lymphadenopathy BMI 32.0-32.9,adult Class 1 obesity due to excess calories in adult Former smoker Immunization counseling Your Care Team Attending Physician - Sabino Cooper MD Primary Care Physician - Sabino Cooper MD This Is Your Medications List Contact prescribing physician if questions or concerns APAP/butalbital/caffeine (Esgic 325 mg-50 mg-40 mg oral capsule) Misc Prescription (Misc DME Prescription) Misc Prescription (Misc DME Prescription) Non-Formulary Medication (Misc Medication) albuterol (Albuterol (Eqv-ProAir HFA) 90 mcg/inh inhalation aerosol) amlodipine (amLODIPine 5 mg Tab) aspirin (Aspir 81) clopidogrel (Plavix 75 mg Tab) dorzolamide ophthalmic (dorzolamide ophthalmic 2% solution) famotidine (Pepcid 20 mg Tab) famotidine (Pepcid 20 mg Tab) fluticasone nasal (fluticasone Nasal 0.05 mg/inh [place]) furosemide (furosemide 20 mg Tab) irbesartan (irbesartan 300 mg Tab) isosorbide mononitrate latanoprost ophthalmic (latanoprost Opth 0.005% Janee) loperamide (loperamide 2 mg Tab) metformin (metformin 500 mg ER Tab) multivitamin with minerals (Multivitamin, Therapeutic w/ Minerals) omeprazole (omeprazole 40 mg Cap-DR) psyllium (Metamucil) rosuvastatin (rosuvastatin 10 mg Tab) sotalol (sotalol 80 mg Tab) tizanidine (tiZANidine 4 mg Tab) zonisamide (zonisamide 25 mg Cap) Procedures Performed Ablation (08/17/2023), Colonoscopy (06/14/2023), Esophagogastroduodenoscopy (04/15/2023), Esophagogastroduodenoscopy (05/20/2020), Angioplasty, Cardiac pacemaker procedure, Cataract, Cholecystectomy, Colonoscopy, Hernia repair, Prostate excision, Tonsillectomy, Vasectomy. Discharge Vitals Temperature (Oral) 36.7 ?C Heart Rate (Peripheral) 68 Respiratory Rate 16 Blood Pressure 122/80 Height 160 cm Height 63 in Weight 79.0 kg Weight 173.8 lb BMI 30.86 What to do next Scheduled Follow-Up Appointments 2023 2:45 PM EST With: Beatriz CASON, Inez Funes Where: [facility] [address] [place] [address] [place] [phone]- Wednesday 10:00 AM EST With: Hermes CASON, Sabino Rosa Where: [address] [phone]- Wednesday 2:30 PM EDT With: Where: [address] [phone]- Medications What How Much When Why Instructions Unchanged albuterol (Albuterol (Eqv-ProAir HFA) 90 mcg/ inh inhalation aerosol) See instructions USE 2 INHALATIONS BY MOUTH EVERY 6 HOURS Contact prescribing physician if questions or concerns Unchanged amlodipine (amLODIPine 5 mg Tab) 1 Tablets By Mouth Every day Contact prescribing physician if questions or concerns Unchanged APAP/ butalbital/ caffeine (Esgic 325 mg-50 mg-40 mg oral capsule) 1 Capsules By Mouth Every 4 hours as needed for for headache Contact prescribing physician if questions or concerns Unchanged aspirin (Aspir 81) 81 Milligram By Mouth Every day Contact prescribing physician if questions or concerns Unchanged clopidogrel (Plavix 75 mg Tab) 1 Tablets By Mouth Every day Contact prescribing physician if questions or concerns Unchanged dorzolamide ophthalmic (dorzolamide ophthalmic 2% solution) 1 Drops Ophthalmic 2 times a day each eye Contact prescribing physician if questions or concerns Unchanged famotidine (Pepcid 20 mg Tab) 1 Tablets By Mouth Every day Contact prescribing physician if questions or concerns Unchanged famotidine (Pepcid 20 mg Tab) 1 Tablets By Mouth Once a day (at bedtime) Chronic GERD Duration: 90 Days Contact prescribing physician if questions or concerns Unchanged fluticasone nasal (fluticasone Nasal 0.05 mg/ inh Dupuyer) See instructions USE 1 SPRAY IN BOTH NOSTRILS TWICE DAILY Contact prescribing physician if questions or concerns Unchanged furosemide (furosemide 20 mg Tab) 1 Tablets By Mouth Every day Contact prescribing physician if questions or concerns Unchanged irbesartan (irbesartan 300 mg Tab) 1 Tablets By Mouth Every day Contact prescribing physician if questions or concerns Unchanged isosorbide mononitrate 30 Milligram By Mouth Once a day (in the morning) Contact prescribing physician if questions or concerns Unchanged latanoprost ophthalmic (latanoprost Opth 0.005% Janee) 10 mL, 0 Refill(s) Contact prescribing physician if questions or concerns Unchanged loperamide (loperamide 2 mg Tab) 1 Tablets By Mouth Every 4 hours Contact prescribing physician if questions or concerns Unchanged metformin (metformin 500 mg ER Tab) 1 Tablets By Mouth Every day Contact prescribing physician if questions or concerns Unchanged Misc Prescription (Misc DME Prescription) See instructions (more content not included)... Normal [facility] Family Medicine Office/Clini c Noteon 02-01-2024 Family Medicine Office/Clinic Note Family Medicine Office/Clinic Note HPI Staff Jeremie is an 83 year old male presenting for 3 week follow up cervical lymphadenopathy GOLD US and clindamycin Had US done and referred to Dr Ham, has appt with him this afternoon Completed the antibiotics questions/concerns:wants to discuss when to get flu shot History of Present Illness Pt here for follow up. - Reviewed U/S - See staff HPI. Wants to discuss immunizations. Review of Systems PHQ Score Initial Depression Screen Score: 0 SCORE Physical Exam Vitals & Measurements T: 36.7 ?C(Oral) HR: 68(Peripheral) RR: 16 BP: 122/80 SpO2: 97% HT: 63 in HT: 160 cm WT: 79.0 kg WT: 173.8 lb BMI: 30.86 General: alert, no acute distress ENMT: oral mucosa moist, Cardiovascular: regular rate and rhythm, normal peripheral perfusion Respiratory: Lungs CTA, respirations non labored Extremities: no deformity, no trauma Neurological: oriented x 4, LOC appropriate for age, CN II-XII intact, motor strength equal & normal bilaterally, speech normal Abdomen: Soft, Nontender, Non-distended, + BS Assessment/Plan 1. Cervical lymphadenopathy (R59.0: Localized enlarged lymph nodes) - Unsure exactly what this is as the size of the lymphnodes has not changed. - Seeing Timmis later today. - Follow up PRN 2. BMI 32.0-32.9,adult (Z68.32: Body mass index [BMI] 32.0-32.9, adult) - BMI education added 3. Class 1 obesity due to excess calories in adult (E66.09: Other obesity due to excess calories) - Diet and exercise advised 4. Former smoker (Z87.891: Personal history of nicotine dependence) - Please continue to not smoke 5. Immunization counseling (Z71.85: Encounter for immunization safety counseling) - Discussed immunizations in detail. 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 Diverticulosis FH: stomach cancer GERD with apnea Glaucoma Hemorrhoids History of colon polyps Hypercholesterolemia Immunization counseling Lumbar spondylosis Lump on neck Migraine Numbness of right hand Osteoarthritis Pacemaker Pancreatic cyst Personal history of prostate cancer Primary hypertension PUD (peptic ulcer disease) Right flank pain, chronic RUQ pain Sleep apnea Swollen lymph nodes Thoracic aortic ectasia Type 2 diabetes mellitus with hypercholesterolemia Urinary incontinence 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 Medications Albuterol (Eqv-ProAir HFA) 90 mcg/inh inhalation aerosol, See Instructions amLODIPine 5 mg Tab, 5 mg= 1 tab(s), Oral, Daily, 1 refills Aspir 81, 81 mg, Oral, Daily dorzolamide ophthalmic 2% solution, 1 drop(s), OPTH, BID Esgic 325 mg-50 mg-40 mg oral capsule, 1 cap(s), Oral, q4hr, PRN, 1 refills fluticasone Nasal 0.05 mg/inh [place], See Instructions furosemide 20 mg Tab, 20 mg= 1 tab(s), Oral, Daily irbesartan 300 mg Tab, 300 mg= 1 tab(s), Oral, Daily isosorbide mononitrate, 30 mg, Oral, qAM latanoprost Opth 0.005% Janee loperamide 2 mg Tab, 2 mg= 1 tab(s), Oral, q4hr Metamucil metformin 500 mg ER Tab, 500 mg= 1 tab(s), Oral, Daily Misc DME Prescription, See Instructions Misc DME Prescription, See Instructions Misc Medication Multivitamin, Therapeutic w/ Minerals, Oral, Daily omeprazole 40 mg Cap-DR, 40 mg= 1 cap(s), Oral, Daily, 1 refills Pepcid 20 mg Tab, 20 mg= 1 tab(s), Oral, Once a day (at bedtime), 1 refills Pepcid 20 mg Tab, 20 mg= 1 tab(s), Oral, Daily, 3 refills Plavix 75 mg Tab, 75 mg= 1 tab(s), Oral, Daily rosuvastatin 10 mg Tab, See Instructions, 3 refills sotalol 80 mg Tab, 0.5 tab, Oral, BID tiZANidine 4 mg Tab, 4 mg= 1 tab(s), Oral, Daily zonisamide 25 mg Cap, 25 mg= 1 cap(s), Oral, BID Allergies Adhesive Bandage (Rash) Niaspan ER (Itching) Social History Alcohol - Low Risk, 11/08/2023 Current, Wine, 1-2 times per week, 1 drinks/episode average. 1.00 drinks/episode maximum. Previous treatment: None. Alcohol use interferes with work or home: No. Drinks more than intended: No. Others hurt by drinking: No. Ready to change: No. Household alcohol concerns: No., 11/08/2023 [facility] (more content not included)... Normal [facility] Comment on above: Result Comment: Elec tronically Signed By: Sabino Cooper MD\.br\Date and Time Signed: 02/01/24 09:16 EDT Ambulatory Visit Summaryon 0 01-10-2024 Ambulatory Visit Summary Ambulatory Visit Summary JEREMIE BENNETT :1940 Visit Date:01/10/2024 Ambulatory Visit Instructions Your Diagnosis BMI 30.0-30.9,adult Class 1 obesity due to excess calories in adult Former smoker Your Care Team Attending Physician - Sabino Cooper MD Primary Care Physician - Sabino Cooper MD This Is Your Medications List APAP/butalbital/caffeine (Esgic 325 mg-50 mg-40 mg oral capsule) Misc Prescription (Misc DME Prescription) Misc Prescription (Misc DME Prescription) Non-Formulary Medication (Misc Medication) albuterol (Albuterol (Eqv-ProAir HFA) 90 mcg/inh inhalation aerosol) amlodipine (amLODIPine 5 mg Tab) aspirin (Aspir 81) clopidogrel (Plavix 75 mg Tab) dorzolamide ophthalmic (dorzolamide ophthalmic 2% solution) famotidine (Pepcid 20 mg Tab) fluticasone nasal (Flonase 0.05 mg/inh Clark) furosemide (furosemide 20 mg Tab) irbesartan (irbesartan 300 mg Tab) isosorbide mononitrate latanoprost ophthalmic (latanoprost Opth 0.005% Janee) loperamide (loperamide 2 mg Tab) metformin (metformin 500 mg ER Tab) multivitamin with minerals (Multivitamin, Therapeutic w/ Minerals) omeprazole (omeprazole 40 mg Cap-DR) psyllium (Metamucil) rosuvastatin (rosuvastatin 10 mg Tab) sotalol (sotalol 80 mg Tab) tizanidine (tiZANidine 4 mg Tab) zonisamide (zonisamide 25 mg Cap) Procedures Performed Ablation (08/17/2023), Colonoscopy (06/14/2023), Esophagogastroduodenoscopy (04/15/2023), Esophagogastroduodenoscopy (05/20/2020), Angioplasty, Cardiac pacemaker procedure, Cataract, Cholecystectomy, Colonoscopy, Hernia repair, Prostate excision, Tonsillectomy, Vasectomy. Discharge Vitals Temperature (Temporal Artery) 36.4 ?C Heart Rate (Peripheral) 72 Respiratory Rate 20 Blood Pressure 124/80 Height 160 cm Height 63 in Weight 77.8 kg Weight 171.16 lb BMI 30.39 What to do next Scheduled Follow-Up Appointments Wednesday 8:45 AM EDT With: Sabino Cooper MD Where: [address] [phone]- 2023 2:45 PM EST With: Beatriz CASON, Inez Funes Where: [address] [address]- Wednesday 10:00 AM EST With: Sabino Cooper MD Where: [address] [phone]- Wednesday 2:30 PM EDT With: Where: [address] [phone]- Medications What How Much When Why Instructions Unchanged albuterol (Albuterol (Eqv-ProAir HFA) 90 mcg/ inh inhalation aerosol) See instructions USE 2 INHALATIONS BY MOUTH EVERY 6 HOURS Unchanged amlodipine (amLODIPine 5 mg Tab) 1 Tablets By Mouth Every day Unchanged APAP/ butalbital/ caffeine (Esgic 325 mg-50 mg-40 mg oral capsule) 1 Capsules By Mouth Every 4 hours as needed for for headache Unchanged aspirin (Aspir 81) 81 Milligram By Mouth Every day Unchanged clopidogrel (Plavix 75 mg Tab) 1 Tablets By Mouth Every day Unchanged dorzolamide ophthalmic (dorzolamide ophthalmic 2% solution) 1 Drops Ophthalmic 2 times a day each eye Unchanged famotidine (Pepcid 20 mg Tab) 1 Tablets By Mouth Once a day (at bedtime) Chronic GERD Duration: 90 Days Unchanged fluticasone nasal (Flonase 0.05 mg/ inh Clark) 1 Sprays Nasal Inhalation 2 times a day each nostril Unchanged furosemide (furosemide 20 mg Tab) 1 Tablets By Mouth Every day Unchanged irbesartan (irbesartan 300 mg Tab) 1 Tablets By Mouth Every day Unchanged isosorbide mononitrate 30 Milligram By Mouth Once a day (in the morning) Unchanged latanoprost ophthalmic (latanoprost Opth 0.005% Janee) 10 mL, 0 Refill(s) Unchanged loperamide (loperamide 2 mg Tab) 1 Tablets By Mouth Every 4 hours Unchanged metformin (metformin 500 mg ER Tab) 1 Tablets By Mouth Every day Unchanged Misc Prescription (Mis DME Prescription) See instructions one touch ultra test strips test sugars once a day Unchanged Misc Prescription (Misc DME Prescription) See instructions one touch ultra lancets Use to test sugars once a day Unchanged multivitamin with minerals (Multivitamin, Therapeutic w/ Minerals) By Mouth Every day Unchanged Non-Formulary Medication (Misc Medication) Transdermal Therapeutics up to four times per day: Meloxicam 0.5%/ Doxepin 3%/ Amantidine 3%/ Dextromethorphan 2%/ Lidocaine 2% Unchanged omeprazole (omeprazole 40 mg Cap-DR) 1 Capsules By Mouth Every day Chronic GERD Duration: 90 Days Unchanged psyllium (Metamucil) Unchanged rosuvastatin (rosuvastatin 10 mg Tab) See instructions TAKE 1 TABLET BY MOUTH DAILY Unchanged sotalol (sotalol 80 mg Tab) 0.5 tab By Mouth 2 times a day Unchanged tizanidine (tiZANidine 4 mg Tab) 1 Tablets By Mouth Every day Unchanged zonisamide (z (more content not included)... Normal [facility] Family Medicine Office/Clini c Noteon 01-10-2024 Family Medicine Office/Clinic Note Family Medicine Office/Clinic Note HPI Staff Jeremie is an 83 year old male presenting for acute visit Acute right side of neck sore and swollen noticed it yesterday. Last weekend had a sore throat, took some robitussin and it cleared up then yesterday noticed his neck hurt and when he touched it found it was swollen Same side it was swollen before but wasn't sore then questions/concerns: History of Present Illness See staff HPI.Patient was sick with a sore throat last week. Then had the swelling of the neck,. Patient has had this a few times. Review of Systems PHQ Score Initial Depression Screen Score: 0 SCORE Physical Exam Vitals & Measurements T: 36.4 ?C(Temporal Artery) HR: 72(Peripheral) RR: 20 BP: 124/80 SpO2: 96% HT: 63 in HT: 160 cm WT: 77.8 kg WT: 171.16 lb BMI: 30.39 General: alert, no acute distress ENMT: oral mucosa moist, swollen and tender right cervical lymphadenopathy noted. Cardiovascular: normal peripheral perfusion Respiratory: respirations non labored Extremities: no deformity, no trauma Neurological: oriented x 4, LOC appropriate for age, CN II-XII intact, motor strength equal & normal bilaterally, speech normal Assessment/Plan 1. Cervical lymphadenopathy (R59.0: Localized enlarged lymph nodes) Will do clinda and ultrasound. Follow-up in 3 weeks. 2. BMI 30.0-30.9,adult (Z68.30: Body mass index [BMI] 30.0-30.9, adult) BMI education given Ordered: Body Mass Index (BMI) documented 3008F Current tobacco non-user 1036F Depression Screening Negative 3352F Influenza immunization administered or previously received 4274F Most recent diastolic blood pressure 80-89 mm Hg 3079F Patient screen for fall risk: no falls in last year or 1 fall with no injury in last year 1101F Systolic BP <130 mm Hg (Most Recent) 3074F 3. Class 1 obesity due to excess calories in adult (E66.09: Other obesity due to excess calories) Diet and exercise advised Ordered: Body Mass Index (BMI) documented 3008F Current tobacco non-user 1036F Depression Screening Negative 3352F Influenza immunization administered or previously received 4274F Most recent diastolic blood pressure 80-89 mm Hg 3079F Patient screen for fall risk: no falls in last year or 1 fall with no injury in last year 1101F Systolic BP <130 mm Hg (Most Recent) 3074F 4. Former smoker (Z87.891: Personal history of nicotine dependence) Please continue not to smoke. Ordered: Body Mass Index (BMI) documented 3008F Current tobacco non-user 1036F Depression Screening Negative 3352F Influenza immunization administered or previously received 4274F Most recent diastolic blood pressure 80-89 mm Hg 3079F Patient screen for fall risk: no falls in last year or 1 fall with no injury in last year 1101F Systolic BP <130 mm Hg (Most Recent) 3074F Orders: clindamycin, 300 mg = 1 cap(s), Oral, BID, # 20 cap(s), Refills(s) 0, Pharmacy: [email or web address] #[id number], 160, cm, 01/10/24 9:43:00 EDT, Height/Length Dosing, 77.8, kg, 01/10/24 9:43:00 EDT, Weight Dosing Follow-up No qualifying data available Problem List/Past Medical History Ongoing BMI 29.0-29.9,adult Cervical lymphadenopathy Cervical spondylosis Chronic GERD Coronary artery disease 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 Diverticulosis FH: stomach cancer GERD with apnea Glaucoma Hemorrhoids History of colon polyps Hypercholesterolemia Lumbar spondylosis Lump on neck Migraine Numbness of right hand Osteoarthritis Pacemaker Pancreatic cyst Personal history of prostate cancer Primary hypertension PUD (peptic ulcer disease) Right flank pain, chronic RUQ pain Sleep apnea Swollen lymph nodes Thoracic aortic ectasia Type 2 diabetes mellitus with hypercholesterolemia Urinary incontinence 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 Medications Albuterol (Eqv-ProAir HFA) 90 mcg/inh inhalation aerosol, See Instructions amLODIPine 5 mg Tab, 5 mg= 1 tab(s), Oral, Daily, 1 refills Aspir 81, 81 mg, Oral, Daily clindamycin 300 mg oral cap, 300 mg= 1 cap(s), Oral, BID dorzolamide ophthalmic 2% solution, 1 drop(s), OPTH, BID Esgic 325 mg-50 mg-40 mg oral capsule, 1 cap(s), Oral, q4hr, PRN, 1 refills Flonase 0.05 mg/inh Clark, 1 spray(s), Nasal, BID furosemide 20 mg Tab, 20 mg= 1 tab(s), Oral, Daily irbesartan 300 mg Tab, 300 mg= 1 tab(s), Oral, Daily isosorbide mononitrate, 30 mg, Oral, qAM latanoprost Opth 0.005% Janee loperamide 2 mg (more content not included)... Normal [facility] Comment on above: Result Comment: Elec tronically Signed By: Hermes CASON, Sabino Rosa\.br\Date and Time Signed: 01/10/24 10:38 EDT Family Medicine Office/Clini c Noteon 12-05-2023 Family Medicine Office/Clinic Note Family Medicine Office/Clinic Note Chief Complaint Medicare Wellness Visit Subsequent History of Present Illness Covid-19, MERS, Ebola Screen *Contact With Person [...] Airborne, Droplet Precautions for MERS/COVID-19 : N/A Dylon TINOCONChrisce L - 11/08/2023 16:25 EDT Medicare/Medicaid Summary Chief Complaint : Medicare Wellness Visit Subsequent Chris Osborne LPNce L - 11/08/2023 16:25 EDT Patient Counseled : Nutrition, Physical activity, Elevated BMI Height/Length Measured : 162 cm(Converted to: 5 ft 4 in, 63.78 in) Weight Measured : 78 kg(Converted to: 171 lb 15 Ounces, 171.961 lb) Body Mass Index Measured : 29.72 kg/m2 Height in Inches : 64 in Weight in Pounds : 171.6 lb Systolic Blood Pressure : 98 mmHg Diastolic Blood Pressure : 68 mmHg Blood Pressure Location : Right arm Blood Pressure Position : Sitting O2 Sat Resting/Exertion Alpha : Resting Peripheral Pulse Rate : 70 bpm Respiratory Rate : 16 br/min SpO2 : 93 % Pain Present : Yes actual or suspected pain Numeric Rating Pain Scale : 3 Primary Pain Location : Neck Numeric Rating Pain Score : 6 Shaila Osborne LPN - 11/08/2023 13:02 EDT Patient Preferred Method of Communication No Preference Hearing and Vision Screening FT FT Whisper Test Comments : Wears hearing aids. Vision Screen Comments : Wears corrective lenses, sees Dr. Luo for yearly DM eye exams. Shaila Osborne LPN - 11/08/2023 13:02 EDT Advance Directive FT Advance Directive : Yes Type of Advance Directive : Living will, Medical durable power of managing attorney Patient Wishes to Receive Further Information on Advance Directives : No Organ Donation Consent : Yes Shaila Osborne LPN - 11/08/2023 13:02 EDT Procedures / Surgeries FT - Procedure History (As Of: 11/08/2023 16:27:18 EDT) Anesthesia Minutes: 0 ; Procedure Name: Vasectomy ; Procedure Minutes: 0 ; Last Reviewed Dt/Tm: 11/08/2023 13:20:59 EDT Anesthesia Minutes: 0 ; Procedure Name: Prostate excision ; Procedure Minutes: 0 ; Last Reviewed Dt/Tm: 11/08/2023 13:20:59 EDT Anesthesia Minutes: 0 ; Procedure Name: Cardiac pacemaker procedure ; Procedure Minutes: 0 ; Last Reviewed Dt/Tm: 11/08/2023 13:20:59 EDT Anesthesia Minutes: 0 ; Procedure Name: Angioplasty ; Procedure Minutes: 0 ; Last Reviewed Dt/Tm: 11/08/2023 13:20:59 EDT Anesthesia Minutes: 0 ; Procedure Name: Tonsillectomy ; Procedure Minutes: 0 ; Last Reviewed Dt/Tm: 11/08/2023 13:20:59 EDT Anesthesia Minutes: 0 ; Procedure Name: Colonoscopy ; Procedure Minutes: 0 ; Last Reviewed Dt/Tm: 11/08/2023 13:20:59 EDT Anesthesia Minutes: 0 ; Procedure Name: Hernia repair ; Procedure Minutes: 0 ; Last Reviewed Dt/Tm: 11/08/2023 13:20:59 EDT Procedure Dt/Tm: 05/20/2020 ; Location: [facility] ; Provider: Oksana Saini MD; Anesthesia Minutes: 0 ; Procedure Name: Esophagogastroduodenoscopy ; Procedure Minutes: 0 ; Comments: 05/20/2020 13:51 TIM Chapman RN, Chanel 2 diminunative ulcers, gastritis, gastric polyp, biopsy ; Last Reviewed Dt/Tm: 11/08/2023 13:20:59 EDT Anesthesia Minutes: 0 ; Procedure Name: Cholecystectomy ; Procedure Minutes: 0 ; Last Reviewed Dt/Tm: 11/08/2023 13:20:59 EDT Anesthesia Minutes: 0 ; Procedure Name: Cataract ; Procedure Minutes: 0 ; Comments: 08/24/2022 8:08 EDT - [employer], Marianne L bilateral ; Last Reviewed Dt/Tm: 11/08/2023 13:20:59 EDT Procedure Dt/Tm: 04/15/2023 ; Location: [facility] ; Provider: Gordy Powers MD; Anesthesia Minutes: 0 ; Procedure Name: Esophagogastroduodenoscopy ; Procedure Minutes: 0 ; Last Reviewed Dt/Tm: 11/08/2023 13:20:59 EDT Procedure Dt/Tm: 08/17/2023 ; Anesthesia Minutes: 0 ; Procedure Name: Ablation lower back ; Procedure Minutes: 0 ; Comments: 08/30/2023 9:57 EDT - Tone TINOCON, Marianne L done for pain ; Last Reviewed Dt/Tm: 11/08/2023 13:20:59 EDT Procedure Dt/Tm: 06/14/2023 ; Provider: Inez Henderson MD; Anesthesia Minutes: 0 ; Procedure Name: Colonoscopy ; Procedure Minutes: 0 ; Last Reviewed Dt/Tm: 11/08/2023 13:20:59 EDT Family History Family History (As Of: 11/08/2023 16:27:18 EDT) Other Relationship: Relation: Other Relationship ; Nomenclature: Pancreatic ; Value: Positive Father: Relation: Father ; Gender: Male ; Nomenclature: Primary malignant neoplasm of prostate ; Value: Positive Mother: Relation: Mother ; Gender: Female ; Nomenclature: Heart trouble ; Value: Positive Nomenclature: Hypertension ; Value: Positive Grandparent: Relation: Grandparent ; Nomenclature: Heart trouble ; Value: Positive Nomenclature: Stomach cancer ; Value: Positive (more content not included)... Normal [facility] Comment on above: Result Comment: Elec tronically Signed By: Hermes CASON, Sabino Branham.br\Date and Time Signed: 12/05/23 13:30 EDT\.br\Electronically Co-Signed By: Shaila Osborne LPN\.marco a\Date and Time Co-Signed: 11/08/23 17:05 EDT Ambulatory Visit Summaryon 0 11-29-2023 Ambulatory Visit Summary Ambulatory Visit Summary JEREMIE BENNETT :1940 Visit Date:11/29/2023 Ambulatory Visit Instructions Your Diagnosis Type 2 diabetes mellitus with hypercholesterolemia Thoracic aortic ectasia Sleep apnea Bloating Vitamin D deficiency Migraine Pure hypercholesterolemia, unspecified Your Care Team Attending Physician - Sabino Cooper MD Primary Care Physician - Sabino Cooper MD This Is Your Medications List APAP/butalbital/caffeine (Esgic 325 mg-50 mg-40 mg oral capsule) Contact prescribing physician if questions or concerns Misc Prescription (Misc DME Prescription) Misc Prescription (Misc DME Prescription) Non-Formulary Medication (Misc Medication) albuterol (Albuterol (Eqv-ProAir HFA) 90 mcg/inh inhalation aerosol) amlodipine (amLODIPine 5 mg Tab) aspirin (Aspir 81) clopidogrel (Plavix 75 mg Tab) dorzolamide ophthalmic (dorzolamide ophthalmic 2% solution) famotidine (Pepcid 20 mg Tab) fluticasone nasal (Flonase 0.05 mg/inh Clark) furosemide (furosemide 20 mg Tab) irbesartan (irbesartan 300 mg Tab) isosorbide mononitrate latanoprost ophthalmic (latanoprost Opth 0.005% Janee) loperamide (loperamide 2 mg Tab) metformin (metformin 500 mg ER Tab) multivitamin with minerals (Multivitamin, Therapeutic w/ Minerals) omeprazole (omeprazole 40 mg Cap-DR) psyllium (Metamucil) rosuvastatin (rosuvastatin 10 mg Tab) sotalol (sotalol 80 mg Tab) tizanidine (tiZANidine 4 mg Tab) zonisamide (zonisamide 25 mg Cap) [Image Removed: STOP]Stop taking these medications acetaminophen-diphenhydrAMIN E (Tylenol PM) Procedures Performed Ablation (08/17/2023), Colonoscopy (06/14/2023), Esophagogastroduodenoscopy (04/15/2023), Esophagogastroduodenoscopy (05/20/2020), Angioplasty, Cardiac pacemaker procedure, Cataract, Cholecystectomy, Colonoscopy, Hernia repair, Prostate excision, Tonsillectomy, Vasectomy. Discharge Vitals Heart Rate (Peripheral) 74 Respiratory Rate 16 Blood Pressure 138/76 Height 160 cm Height 63 in Weight 78.5 kg Weight 172.7 lb BMI 30.66 What to do next Scheduled Follow-Up Appointments 2023 2:45 PM EST With: Beatriz CASON, Inez Funes Where: [facility] Invalid Interpretation Code [address] [place] [address]- \. br\ Wednesday 2:30 PM EDT \.br\ With:\.br\ Where: [facility] Medicine Office/Clini c Noteon 11-29-2023 Family Medicine Office/Clinic Note Family Medicine Office/Clinic Note Chief Complaint f/u to DM HPI Staff Jeremie is an 83 year old male presenting for 3 month follow up DM Do you have any of the following symptoms? Foot Exam: 2-3wks ago Eye Exam: about 1yr ago Last A1C: Hgb A1c POC: 6.1 % (08/30/23 10:26:00) Statin: rosuvastatin 10mg Has been coughing for the past couple of weeks History of Present Illness - Here for follow up. - Cough during the day. - Dry - No real issues with it. - Doing PT for strength. Review of Systems PHQ Score Initial Depression Screen Score: 0 SCORE Physical Exam Vitals & Measurements HR: 74(Peripheral) RR: 16 BP: 138/76 HT: 63 in HT: 160 cm WT: 78.5 kg WT: 172.7 lb BMI: 30.66 General: alert, no acute distress ENMT: oral mucosa moist, Cardiovascular: regular rate and rhythm, normal peripheral perfusion Respiratory: Lungs CTA, respirations non labored Extremities: no deformity, no trauma Neurological: oriented x 4, LOC appropriate for age, CN II-XII intact, motor strength equal & normal bilaterally, speech normal Abdomen: Soft, Nontender, Non-distended, + BS Assessment/Plan 1. Type 2 diabetes mellitus with hypercholesterolemia (E11.69: Type 2 diabetes mellitus with other specified complication) - Well controlled. - No issues at this time. 2. Thoracic aortic ectasia (I77.810: Thoracic aortic ectasia) - No CP - No issues at this time 3. Sleep apnea (G47.30: Sleep apnea, unspecified) - Needs a new mask. - Seeing a sleep specialist. 4. Bloating (R14.0: Abdominal distension (gaseous)) - Likely due to Fiber and Lactose. - Improving 5. Vitamin D deficiency (E55.9: Vitamin D deficiency, unspecified) - Encouraged going outside. - No issues at this time. 6. Migraine (G43.909: Migraine, unspecified, not intractable, without status migrainosus) - Will refill meds. Pure hypercholesterolemia, unspecified (E78.00: Pure hypercholesterolemia, unspecified) Orders: APAP/butalbital/caffeine, 1 cap(s), Oral, q4hr for headache, 60 cap(s), Refill(s) 1, [id number], 160, cm, 11/29/23 10:29:00 EDT, Height/Length Dosing, 78.5, kg, 11/29/23 10:29:00 EDT, Weight Dosing - Will see back in 5 months. 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 Diverticulosis FH: stomach cancer GERD with apnea Glaucoma Hemorrhoids History of colon polyps Hypercholesterolemia Lumbar spondylosis Lump on neck Migraine Numbness of right hand Osteoarthritis Pacemaker Pancreatic cyst Personal history of prostate cancer Primary hypertension PUD (peptic ulcer disease) Right flank pain, chronic RUQ pain Sleep apnea Swollen lymph nodes Thoracic aortic ectasia Type 2 diabetes mellitus with hypercholesterolemia Urinary incontinence 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 Medications Albuterol (Eqv-ProAir HFA) 90 mcg/inh inhalation aerosol, See Instructions amLODIPine 5 mg Tab, 5 mg= 1 tab(s), Oral, Daily, 1 refills Aspir 81, 81 mg, Oral, Daily dorzolamide ophthalmic 2% solution, 1 drop(s), OPTH, BID Esgic 325 mg-50 mg-40 mg oral capsule, 1 cap(s), Oral, q4hr, PRN, 1 refills Flonase 0.05 mg/inh Clark, 1 spray(s), Nasal, BID furosemide 20 mg Tab, 20 mg= 1 tab(s), Oral, Daily irbesartan 300 mg Tab, 300 mg= 1 tab(s), Oral, Daily isosorbide mononitrate, 30 mg, Oral, qAM latanoprost Opth 0.005% Janee loperamide 2 mg Tab, 2 mg= 1 tab(s), Oral, q4hr Metamucil metformin 500 mg ER Tab, 500 mg= 1 tab(s), Oral, Daily [facility] D[facility] Prescription, See Instructions [facility] D[facility] Prescription, See Instructions Misc Medication Multivitamin, Therapeutic w/ Minerals, Oral, Daily omeprazole 40 mg Cap-DR, 40 mg= 1 cap(s), Oral, Daily, 1 refills Pepcid 20 mg Tab, 20 mg= 1 tab(s), Oral, Once a day (at bedtime), 1 refills Plavix 75 mg Tab, 75 mg= 1 tab(s), Oral, Daily rosuvastatin 10 mg Tab, See Instructions, 3 refills sotalol 80 mg Tab, 0.5 tab, Oral, BID tiZANidine 4 mg Tab, 4 mg= 1 tab(s), Oral, Daily zonisamide 25 mg Cap, 25 mg= 1 cap(s), Oral, BID Allergies Adhesive Bandage (Rash) Niaspan ER (Itching) Social History Alcohol - Low Risk, 11/08/2023 Current, Wine, 1-2 times per week, 1 drinks/episode average. 1.00 drinks/episode maximum. Previous treatment: None. Alcohol use int (more content not included)... Normal [facility] Comment on above: Result Comment: Elec tronically Signed By: Sabino Cooper MD\.br\Date and Time Signed: 11/29/23 10:51 EDT Pre-Visit Planningon Pre-Visit Planning Pre-Visit Planning From: Sabino Cooper MD To: Shaila Osborne LPN; Sent: 11/07/2023 11:21:23 EDT Subject: FW: Pre-Visit Planning Caller Name: JEREMIE BENNETT; Caller Number: H I am not sure. I will ask Shaila to follow up. From: Bobbi Hall To: Sabino Cooper MD; Sent: 11/05/2023 10:55:49 EDT Subject: Pre-Visit Planning Due Date/Time: 11/05/2023 10:55:00 EDT Caller Name: JEREMIE BENNETT; Caller Number: H Sd Dr. Cooper. During a pre-visit planning chart review, I noted the following medication documented in the medical record: sotalol 40 mg BID. Based on your medical judgement, can you please indicate what condition indicates the necessity of the medication? I can update the Chronic Problem List with your response if you would like. -Additional comments: In responding to this request, please exercise your independent professional judgement. The fact that a question is asked does not imply that any particular answer is desired or expected. If you have any questions, please feel free to contact me at extension [phone]. Thank you! Bobbi Hall LPN Patient and states patient was diagnosed with VTach in [place], had several ablations down there and then a pacemaker was put in. He sees Dr. Arellano in [place]. I called to request records but they want a fax request so I will fax that tomorrow. From: Shaila Osborne LPN To: Sabino Cooper MD; Sent: 11/08/2023 17:09:05 EDT Subject: FW: Pre-Visit Planning Caller Name: JEREMIE BENNETT; Caller Number: H From: Marianne Wayne LPN To: Sabino Cooper MD; Sent: 11/08/2023 17:53:36 EDT Subject: FW: Pre-Visit Planning Caller Name: JEREMIE BENNETT; Caller Number: H From: Sabino Cooper MD To: Bobbi Hall; Sent: 11/15/2023 09:17:12 EDT Subject: FW: Pre-Visit Planning Caller Name: JEREMIE BENNETT; Caller Number: H [address] Consultation Noteon 11-10-19 Consultation Note [id number]#1.00TIFF [facility] Consent for Treatmenton 10-16 Consent for Treatment [id number]#1.00TIFF Normal [facility] RAD - MISCon 11-09-2023 RAD - MISC [id number]#1.00TIFF Normal [facility] RAD - MRI Screening Formon 0 11-09-2023 RAD - MRI Screening Form [id number]#1.00TIFF Normal [facility] Screenson 11-09-2023 Screens [id number]#1.00TIFF [facility] XR Chest Single Viewon 11-08 XR Chest Single View Exam Date/Time: 11/09/2023 10:11 EDT Reason for Exam: Z95.0;Other (please specify) Report IMPRESSION: NO RADIOGRAPHIC EVIDENCE OF ACUTE INTRATHORACIC PROCESS. EXAM: XR Chest Single View History: Pacemaker. MRI clearance. Technique: Portable AP view of the chest. Comparison: Chest radiograph 09/22/2022 Findings: Left-sided pacemaker is present. Pacemaker leads are intact. Atherosclerotic calcification of the thoracic aorta. The cardiomediastinal silhouette is within normal limits. No pneumothorax, pleural effusion, or consolidation. Linear left lung base scarring. No acute osseous abnormality. 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 Primary Care Physician - Sabino Cooper MD. This Is Your Medications List APAP/butalbital/caffeine (APAP/butalbital/caffeine 325 mg-50 mg-40 mg Tab) Misc Prescription (Misc DME Prescription) Misc Prescription (Misc DME Prescription) Non-Formulary Medication (Misc Medication) acetaminophen-diphenhydrAMIN E (Tylenol PM) albuterol (Albuterol (Eqv-ProAir HFA) 90 mcg/inh inhalation aerosol) amlodipine (amLODIPine 5 mg Tab) aspirin (Aspir 81) clopidogrel (Plavix 75 mg Tab) dorzolamide ophthalmic (dorzolamide ophthalmic 2% solution) famotidine (Pepcid 20 mg Tab) fluticasone nasal (Flonase 0.05 mg/inh Clark) furosemide (furosemide 20 mg Tab) irbesartan (irbesartan 300 mg Tab) isosorbide mononitrate latanoprost ophthalmic (latanoprost Opth 0.005% Janee) loperamide (loperamide 2 mg Tab) metformin (metformin 500 mg ER Tab) multivitamin with minerals (Multivitamin, Therapeutic w/ Minerals) omeprazole (omeprazole 40 mg Cap-DR) psyllium (Metamucil) rosuvastatin (rosuvastatin 10 mg Tab) sotalol (sotalol 80 mg Tab) tizanidine (tiZANidine 4 mg Tab) zonisamide (zonisamide 25 mg Cap) Procedures Performed Ablation (08/17/2023), Colonoscopy (06/14/2023), Esophagogastroduodenoscopy (04/15/2023), Esophagogastroduodenoscopy (05/20/2020), Angioplasty, Cardiac pacemaker procedure, Cataract, Cholecystectomy, Colonoscopy, Hernia repair, Prostate excision, Tonsillectomy, Vasectomy. Discharge Vitals Heart Rate (Peripheral) 70 Respiratory Rate 16 Blood Pressure 98/68 Height 162 cm Height 64 in Weight 78 kg Weight 171.6 lb BMI 29.72 What to do next Scheduled Follow-Up Appointments Wednesday 10:00 AM EDT With: Where: [facility] Wednesday 11:00 AM EDT With: Where: [facility] Wednesday 10:15 AM EDT With: Sabino Cooper MD Where: [facility] Invalid Interpretation Code [address] [id number] \. br\ Wednesday 2:30 PM EDT \.br\ With:\.br\ Where: [facility] Patient Educationon 11-08-19 Patient Education Endocrinology Diabetes Mellitus and Nutrition, Adult When you have diabetes, or diabetes mellitus, it is very important to have healthy eating habits because your blood sugar (glucose) levels are greatly affected by what you eat and drink. Eating healthy foods in the right amounts, at about the same times every day, can help you: ? Manage your blood glucose. ? Lower your risk of heart disease. ? Improve your blood pressure. ? Reach or maintain a healthy weight. What can affect my meal plan? Every person with diabetes is different, and each person has different needs for a meal plan. Your health care provider may recommend that you work with a dietitian to make a meal plan that is best for you. Your meal plan may vary depending on factors such as: ? The calories you need. ? The medicines you take. ? Your weight. ? Your blood glucose, blood pressure, and cholesterol levels. ? Your activity level. ? Other health conditions you have, such as heart or kidney disease. How do carbohydrates affect me? Carbohydrates, also called carbs, affect your blood glucose level more than any other type of food. Eating carbs raises the amount of glucose in your blood. It is important to know how many carbs you can safely have in each meal. This is different for every person. Your dietitian can help you calculate how many carbs you should have at each meal and for each snack. How does alcohol affect me? Alcohol can cause a decrease in blood glucose (hypoglycemia), especially if you use insulin or take certain diabetes medicines by mouth. Hypoglycemia can be a life-threatening condition. Symptoms of hypoglycemia, such as sleepiness, dizziness, and confusion, are similar to symptoms of having too much alcohol. ? Do not drink alcohol if: ? [...] oz glass of hard liquor (44 mL). ? Keep yourself hydrated with water, diet soda, or unsweetened iced tea. Keep in mind that regular soda, juice, and other mixers may contain a lot of sugar and must be counted as carbs. What are tips for following this plan? Reading food labels ? Start by checking the serving size on the Nutrition Facts label of packaged foods and drinks. The number of calories and the amount of carbs, fats, and other nutrients listed on the label are based on one serving of the item. Many items contain more than one serving per package. ? Check the total grams (g) of carbs in one serving. ? Check the number of grams of saturated fats and trans fats in one serving. Choose foods that have a low amount or none of these fats. ? Check the number of milligrams (mg) of salt (sodium) in one serving. Most people should limit total sodium intake to less than 2,300 mg per day. ? Always check the nutrition information of foods labeled as low-fat or nonfat. These foods may be higher in added sugar or refined carbs and should be avoided. ? Talk to your dietitian to identify your daily goals for nutrients listed on the label. Shopping ? Avoid buying canned, pre-made, or processed foods. These foods tend to be high in fat, sodium, and added sugar. ? Shop around the outside edge of the grocery store. This is where you will most often find fresh fruits and vegetables, bulk grains, fresh meats, and fresh dairy products. Cooking ? Use low-heat cooking methods, such as baking, instead of high-heat cooking methods, such as deep frying. ? Cook using healthy oils, such as olive, canola, or sunflower oil. ? Avoid cooking with butter, cream, or high-fat meats. Meal planning ? Eat meals and snacks regularly, preferably at the same times every day. Avoid going long periods of time without eating. ? Eat foods that are high in fiber, such as fresh fruits, vegetables, beans, and whole grains. ? Eat 4?6 oz (112?168 g) of lean protein each day, such as lean meat, chicken, fish, eggs, or tofu. One ounce (oz) (28 g) of lean protein is equal to: ? 1 oz (28 g) of meat, chicken, or fish. ? 1 egg. ? ? cup (62 g) of tofu. ? Eat some foods each day that contain healthy fats, such as avocado, nuts, seeds, and fish. What foods should I eat? Fruits Berries. Apples. Oranges. Peaches. Apricots. Plums. Grapes. Mangoes. Papayas. Pomegranates. Kiwi. Cherries. Vegetables Leafy greens, including lettuce, spinach, kale, chard, maddy greens, mustard greens, and cabbage. Beets. Cauliflower. Broccoli. Carrots. Green beans. Tomatoes. Peppers. Onions. Cucumbers. [place] sprouts. Grains Whole grains, such as whole-wheat or whole-grain bread, crackers, tortillas, cereal, and pasta. Unsweetened oatmeal. (more content not included)... Normal [facility] Pre-Visit Planningon 024 Pre-Visit Planning - From: Bobbi Hall To: Sabino Cooper MD; Sent: 11/05/2023 11:21:25 EDT Subject: Pre-Visit Planning Due Date/Time: 11/05/2023 11:21:00 EDT Caller Name: JEREMIE BENNETT; Caller Number: H Sd Dr. Cooper. During a pre-visit planning chart review, I noted the following documentation in the medical record: Current Problem List: HTN, Sleep apnea, and Type 2 diabetes mellitus with hypercholesterolemia. Current Medication Loss: amlodipine, aspirin, clopidogrel, furosemide, irbesartan, isosorbide mononitrate, metformin, rosuvastatin, and sotalol. 09/22/2022 XR Chest 2 Views: There is mild tortuosity of the thoracic aorta. Based on your medical judgment, can you please clarify which, if any, of the following conditions are present? I can update the problem list with your specified response if you would like. -Thoracic aortic ectasia -Other (please specify): In responding to this request, please exercise your independent professional judgement. The fact that a question is asked does not imply that any particular answer is desired or expected. If you have any questions, please feel free to contact me at extension [phone]. Thank you! Bobbi Hall LPN From: Sabino Cooper MD To: Bobbi Hall; Sent: 11/07/2023 11:18:34 EDT Subject: RE: Pre-Visit Planning Caller Name: JEREMIE BENNETT; Caller Number: H -Thoracic aortic ectasia Normal [facility] Insurance Correspondenceon 0 10-25-2023 Insurance Correspondence [id number]#[id number] Normal [facility] Gastroenterology Office/Clin ic Noteon 10-21-2023 Gastroenterology Office/Clinic Note Chief Complaint RUQ pain, bloating, chronic GERD HPI Staff Patient is a(n) 82 year old male who presents today for a(n) 1 month follow up. Last visit 09/17/23 w/Anjali: 1. RUQ pain (R10.11: Right upper quadrant pain) Occurring daily over the last 3-4 years. 2. Bloating (R14.0: Abdominal distension (gaseous)) RUQ pain and bloating occurring daily. 3. Chronic GERD (K21.9: Gastro-esophageal reflux disease without esophagitis) Controlled. Continue Omeprazole 40mg daily and pepcid 20mg at bedtime. 4. Pancreatic cyst (K86.2: Cyst of pancreas) Ultrasound of abdomen 12/17/2022 revealed 6 mm pancreatic cyst and radiology recommended MRI with contrast or MRCP in 2 years. 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 Patient was evaluated at [facility]: Dr. 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 5. History of colon polyps (Z86.010: Personal history of colonic polyps) MRI 02/16/23 @ [facility]: IMPRESSION: NO ACUTE FINDINGS. 3 MM CYSTIC LESION INVOLVING THE PANCREATIC BODY. DIFFERENTIAL CONSIDERATIONS INCLUDE SEQUELA OF PRIOR PANCREATITIS SUCH A SMALL PSEUDOCYST OR POSSIBLY CYSTIC NEOPLASM SUCH A IPMN. REPEAT MRI IN 2 YEARS IS SUGGESTED. Celiac Panel Antigliadin IgA: 4 (09/17/23) Antigliadin Ig (09/17/23) Endomysial Antibody IgA: Negative (09/17/23) IgA Quant: 136 (09/17/23) t-Transglutaminase IgA: <2 (09/17/23) t-Transglutaminase IgG: <2 (09/17/23) History of Present Illness Epigastric pain and bloating, taking gas-x, seems to help drink milk daily Review of Systems PHQ Score Initial Depression Screen Score: 0 SCORE All systems reviewed, negative; Except for above Physical Exam Vitals & Measurements HR: 73(Peripheral) RR: 18 BP: 130/64 HT: 64 in HT: 162 cm WT: 79 kg WT: 173.8 lb BMI: 30.1 General: in Nad Abdomen: Soft, NTND Procedure Colonoscopy 06/14/23: 1. Small internal hemorrhoids seen on retroflexion 2. Severe sigmoid diverticulosis, few small diverticuli through transverse and ascending colon 3. 3 mm sessile polyp in the ascending colon, removed completely with cold snare and retrieved 4. Normal Terminal ileum Pathology: Final Diagnosis (Verified) A: COLON, RANDOM BIOPSY: ? COLONIC MUCOSA WITH LYMPHOID AGGREGATES, WITHIN NORMAL LIMITS. B: POLYP, ASCENDING COLON, POLYPECTOMY: ? TUBULAR ADENOMA. EGD 04/15/23: Examination of the esophagus revealed a normal esophagus. The squamocolumnar junction appeared regular. Examination of the stomach revealed a normal stomach. Examination of the duodenum revealed a normal duodenum. Pathology: Final Diagnosis (Verified) ANTRUM, BIOPSY: ? HYPERPLASTIC ANTRAL MUCOSA WITH MILD CHRONIC INACTIVE GASTRITIS. ? NO INTESTINAL METAPLASIA. ? NO H. PYLORI MICROORGANISMS IDENTIFIED WITH IMMUNOSTAIN. Assessment/Plan 1. Pancreatic cyst (K86.2: Cyst of pancreas) small sidebranch IPMN- 04/[address] Aguilar @ [facility] Repeat MRCP 02/2024 2. RUQ pain (R10.11: Right upper quadrant pain) advised to try lactose free diet continue gas-x 3. Bloating (R14.0: Abdominal distension (gaseous)) advised to try lactose free diet continue gas-x 4. Chronic GERD (K21.9: Gastro-esophageal reflux disease without esophagitis) controlled with Omeprazole and pepcid 5. History of colon polyps (Z86.010: Personal history of colonic polyps) Repeat Colon in 7 years (2030) if patient is agreeable at that time Eduarda Quinones, personally romeibed for Josiane You 10/21/2023 15:26:36. . Documentation recorded by Eduarda Sims, accurately reflects the services I performed and decisions made by me. Inez Henderson MD Follow-up No qualifying data available Problem List/Past Medical History Ongoing Bloating BMI 30.0-30.9,adult Chronic GERD Colon polyp Diabetic autonomic neuropathy associated with type 2 diabetes mellitus Diverticulosis FH: stomach cancer GERD with apnea Glaucoma Hemorrhoids History of colon polyps Hypercholesterolemia Lump on neck Numbness of right hand Osteoarthritis Pacemaker Pancreatic cyst Personal history of prostate cancer Primary hypertension Prostatitis PUD (peptic ulcer disease) Right flank pain, chronic RUQ pain Sleep apnea Swollen lymph nodes Type 2 diabetes mellitus without complication, without long-term current use of insulin Urinary incontinence without sensory awareness Vitamin D deficiency Historical Diarrhea Fecal urgency Irregular bowel habits Procedure/Surgical History Ablation (08/17/2023), Colonoscopy (06/14/2023), Esophagogastroduodenoscopy (04/15/2023), Esophagogastroduodenoscopy (05/20/2020), Angioplasty, Cardiac pacemaker procedure, Cataract, Cholecystectomy, Colonoscopy, Hernia repair, Prostate e (more content not included)... Normal [facility] Comment on above: Result Comment: Elec tronically Signed By: Beatriz CASON, Inez Funes\.br\Date and Time Signed: 10/21/23 15:38 EDT\.br\Electronically Co-Signed By: Eduarda Sims MA\.br\Date and Time Co-Signed: 10/21/23 15:27 EDT Celiac Disease Comprehensive on 09-20-2023 Endomysium IgA Ql (S) Negative Invalid Interpretation Code Negative [facility] Comment on above: Performed By: #### 1 [id number] #### [facility] [address] [place] [address] Gliadin peptide IgA Qn (S) 4 unit(s) Invalid Interpretation Code 0-19 [facility] Comment on above: Result Comment: Nega tive 0 - 19 Weak Positive 20 - 30 Moderate to Strong Positive >30 Performed By: #### 1 [id number] #### [facility] [address] [place] [address] Gliadin peptide IgG Qn (S) 4 unit(s) Invalid Interpretation Code 0-19 [facility] Comment on above: Result Comment: Nega tive 0 - 19 Weak Positive 20 - 30 Moderate to Strong Positive >30 Performed By: #### 1 [id number] #### [facility] [address] [place] [address] IgA [Mass/Vol] 136 mg/dL Invalid Interpretation Code 61-437 [facility] Comment on above: Result Comment: Perf ormed at: [facility] [address] [id number] PhD Bernice Bower Performed By: #### 1 [id number] #### [facility] [address] [place] [address] tTG IgA Qn (S) <2 Invalid Interpretation Code 0-3 [facility] Comment on above: Result Comment: Nega tive 0 - 3 Weak Positive 4 - 10 Positive >10 Tissue Transglutaminase (tTG) has been identified as the endomysial antigen. Studies have demonstr- ated that endomysial IgA antibodies have over 99% specificity for gluten sensitive enteropathy. Performed By: #### 1 [id number] #### [facility] [address] [place] [address] tTG IgG Qn (S) <2 Invalid Interpretation Code 0-5 [facility] Comment on above: Result Comment: Nega tive 0 - 5 Weak Positive 6 - 9 Positive >9 Performed By: #### 1 [id number] #### [facility] [address] [place] [address] Ambulatory Visit Summaryon 0 09-17-2023 Ambulatory Visit Summary BENNETTJEREMIE Annabelle :1940 Visit Date:09/17/2023 Ambulatory Visit Instructions Your Diagnosis RUQ pain Bloating Chronic GERD Pancreatic cyst History of colon polyps Your Care Team Attending Physician - Anjali Ruby CNP Primary Care Physician - Sabino Cooper MD This Is Your Medications List famotidine (Pepcid 20 mg Tab) omeprazole (omeprazole 40 mg Cap-DR) Contact prescribing physician if questions or concerns APAP/butalbital/caffeine (APAP/butalbital/caffeine 325 mg-50 mg-40 mg Tab) Misc Prescription (Misc DME Prescription) Misc Prescription (Misc DME Prescription) albuterol (Albuterol (Eqv-ProAir HFA) 90 mcg/inh inhalation aerosol) amlodipine (amLODIPine 5 mg Tab) aspirin (Aspir 81) cholestyramine (cholestyramine 4 g/5 g Oral Pwdr) cholestyramine (cholestyramine 4 g/5 g Oral Pwdr) clopidogrel (Plavix 75 mg Tab) dorzolamide ophthalmic (dorzolamide ophthalmic 2% solution) fluticasone nasal (Flonase 0.05 mg/inh Clark) fluticasone nasal (fluticasone Nasal 0.05 mg/inh Dupuyer) furosemide (furosemide 20 mg Tab) irbesartan (irbesartan 300 mg Tab) isosorbide mononitrate latanoprost ophthalmic latanoprost ophthalmic (latanoprost Opth 0.005% Janee) loperamide (loperamide 2 mg Tab) metformin (metformin 500 mg ER Tab) multivitamin with minerals (Multivitamin, Therapeutic w/ Minerals) psyllium (Metamucil) rosuvastatin (rosuvastatin 10 mg Tab) sotalol (sotalol 80 mg Tab) tizanidine (tiZANidine 4 mg Tab) zonisamide (zonisamide 25 mg Cap) Procedures Performed Ablation (08/17/2023), Colonoscopy (06/14/2023), Esophagogastroduodenoscopy (04/15/2023), Esophagogastroduodenoscopy (05/20/2020), Angioplasty, Cardiac pacemaker procedure, Cataract, Cholecystectomy, Colonoscopy, Hernia repair, Prostate excision, Tonsillectomy, Vasectomy. Discharge Vitals Temperature (Temporal Artery) 36.3 ?C Heart Rate (Peripheral) 66 Blood Pressure 123/66 Height 162 cm Height 64 in Weight 79.7 kg Weight 175.34 lb BMI 30.37 What to do next Scheduled Follow-Up Appointments Wednesday 1:00 PM EDT With: Where: [facility] Invalid Interpretation Code [address] [place] [address]- \. br\ You Need to Schedule the Following Appointmen ts\.br\ Follow Up with Sammi CASON, NICOL Mccrary, MED When: Within 3 months\.br \ Where:\.br \ [address], [address]\.br\ [place] [address].br \ [phone] \.br\ You Need to Complete the Following\ .br\ Celiac Disease Comprehens rosa, Blood, Routine collect, 09/17/23, Order for future visit, Lab Collect, RUQ pain [facility] Consent for Treatmenton 050 Consent for Treatment [id number] Normal [facility] Gastroenterology Office/Clin ic Noteon 09-17-2023 Gastroenterology Office/Clinic Note Chief Complaint Right/ mid upper abdominal pain. HPI Staff This is a 82 year old male who presents today for a follow-up from 06/25/23 office visit. Patient c/o right/ mid upper abdominal pain. History of Present Illness Patient is a 82-year-old male who presents for follow-up. Patient was previously evaluated 06/25/2023 and has history of generalized abdominal pain. Patient also with past history of COVID-19 09/2022. Patient had previously reported having RUQ pain for years. Patient with history of pacemaker, CAD with stents and is taking Plavix. Patient was previously referred to [facility] regarding pancreatic cyst. Patient had previous EGD [...] hemorrhoids. Previous review of outside records from [facility] from 03/[address] abdomen/pelvis that revealed prominent amount of fluid in colon suggesting diarrhea, diverticulosis. Patient had previous ultrasound of RUQ 09/2019 at outside facility that revealed 0.7 cm pancreatic cyst and cholelithiasis. Patient reports history of cholecystectomy in 2019. Previous labs at outside facility 11/2022 revealed normal BUN, normal creatinine, normal LFTs, normal H&H. Outside record from [facility] from 04/01/2020 indicated patient had RUQ ultrasound that revealed no acute process, fatty change in liver. Ultrasound of abdomen 12/17/2022 revealed 6 mm pancreatic cyst and radiology recommended MRI with contrast or MRCP in 2 years. 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 I recommended for patient to be referred to [facility] for further evaluation regarding pancreatic cyst and patient was referred. Previous EGD with general surgery 04/15/2023 that was normal. Biopsy of antrum revealed mild chronic inactive gastritis, negative for intestinal metaplasia, negative for H. pylori. Stool testing negative for infectious process 03/10/23. Patient was evaluated at [facility]: Dr. 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 Patient reported history of cholecystectomy in 2019. He also reported taking metformin for years. Patient was previously ordered trial of questran to evaluate for bile salt induced diarrhea and was advised to continue fiber supplementation. Colonoscopy completed 06/14/[address] Henderson revealed hemorrhoids, diverticulosis, 3 mm sessile polyp removed from ascending colon that pathology revealed was tubular adenoma, random colon biopsy revealed lymphoid aggregates within normal limits- patient to have repeat colonoscopy in 5 years- 2028. Patient reported during most recent visit with me that he was no longer having diarrhea since colonoscopy. He reported taking fiber daily and was eating 3-4 prunes a day. He indicated he had not taking Questran related to cost of medication. He reported having bloating and RUQ pain daily over the last 3 to 4 years and bloating. He indicated if he belches or passes gas that bloating would improve. Patient was educated regarding use of Gas-X as needed and to keep food diary to evaluate for triggering foods of his symptoms. Patient was educated to continue omeprazole 40 mg daily and added Pepcid 20 mg at bedtime to his regimen. During today's visit, patient reports he is still having RUQ pain described as sharp over the last 3-4 years, occurring daily. He explains RUQ pain is worse after eating. Denies any specific foods triggering RUQ pain. Has associated bloating with RUQ pain. Reports trying Gas-X with no improvement in bloating or RUQ pain. Is having 1 formed BM daily. He reports acid reflux is well-controlled with omeprazole 40mg daily and pepcid 20mg at bedtime. Denies black/bloody stools, nausea/vomiting, fevers/chills, unintentional weight loss, and denies having any other GI complaints. Review of Systems PHQ Score Initial Depression Screen Score: 0 SCORE ROS - Provider Constitutional: no fever, no chills. Skin: no Jaundice. ENMT: Denies dysphagia and heartburn. Respiratory: no shortness of breath. Cardiovascular: no chest pain. Gastrointestinal: no nausea, no vomiting, no diarrhea, no GI bleeding. Physical Exam Vitals & Measurements T: 36.3 ?C(Temporal Artery) HR: 66(Peripheral) BP: 123/66 HT: 64 in HT: 162 cm WT: 79.7 kg WT: 175.34 lb BMI: 30.37 General: Well developed, well nourished, in no acute distress Head: Normocephalic/atraumatic Lungs: Normal respiratory effort and clear to auscult (more content not included)... Normal [facility] Comment on above: Result Comment: Elec tronically Signed By: Flori GARZA, Anjali Omalley\.br\Date and Time Signed: 09/17/23 09:27 EDT Patient Educationon 09-17-19 Patient Education Gastroenterology Food Choices for Gastroesophageal [...] grapefruit, pineapple, and nury. Vegetables Deep-fried vegetables. Honduran fries. Any vegetables prepared with added fat. [...] reflux di (more content not included)... Normal [facility] Consultation Noteon 09-15-19 Consultation Note [id number] Normal [facility] Ambulatory Visit Summaryon 0 08-30-2023 Ambulatory Visit Summary JEREMIE BENNETT :1940 Visit Date:08/30/2023 Ambulatory Visit Instructions Your Diagnosis Type 2 diabetes mellitus without complication, without long-term current use of insulin Irregular bowel habits Primary hypertension BMI 29.0-29.9,adult Over weight Former smoker Your Care Team Attending Physician - Sabino Cooper MD Primary Care Physician - Sabino Cooper MD This Is Your Medications List cholestyramine (cholestyramine 4 g/5 g Oral Pwdr) Contact prescribing physician if questions or concerns APAP/butalbital/caffeine (APAP/butalbital/caffeine 325 mg-50 mg-40 mg Tab) Misc Prescription (Misc DME Prescription) Misc Prescription (Misc DME Prescription) albuterol (Albuterol (Eqv-ProAir HFA) 90 mcg/inh inhalation aerosol) amlodipine (amLODIPine 5 mg Tab) aspirin (Aspir 81) clopidogrel (Plavix 75 mg Tab) dorzolamide ophthalmic (dorzolamide ophthalmic 2% solution) famotidine (Pepcid 20 mg Tab) fluticasone nasal (Flonase 0.05 mg/inh Clark) fluticasone nasal (fluticasone Nasal 0.05 mg/inh Dupuyer) furosemide (furosemide 20 mg Tab) irbesartan (irbesartan 300 mg Tab) isosorbide mononitrate latanoprost ophthalmic latanoprost ophthalmic (latanoprost Opth 0.005% Janee) loperamide (loperamide 2 mg Tab) metformin (metformin 500 mg ER Tab) multivitamin with minerals (Multivitamin, Therapeutic w/ Minerals) omeprazole (omeprazole 40 mg Cap-DR) psyllium (Metamucil) rosuvastatin (rosuvastatin 10 mg Tab) sotalol (sotalol 80 mg Tab) tizanidine (tiZANidine 4 mg Tab) zonisamide (zonisamide 25 mg Cap) [Image Removed: STOP]Stop taking these medications glimepiride (glimepiride 2 mg Tab) Procedures Performed Ablation (08/17/2023), Colonoscopy (06/14/2023), Esophagogastroduodenoscopy (04/15/2023), Esophagogastroduodenoscopy (05/20/2020), Angioplasty, Cardiac pacemaker procedure, Cataract, Cholecystectomy, Colonoscopy, Hernia repair, Prostate excision, Tonsillectomy, Vasectomy. Discharge Vitals Temperature (Oral) 36.5 ?C Heart Rate (Peripheral) 72 Respiratory Rate 20 Blood Pressure 122/66 Height 162 cm Height 64 in Weight 78.4 kg Weight 172.48 lb BMI 29.87 What to do next Scheduled Follow-Up Appointments 2023 2:00 PM EDT With: Anjali Ruby CNP Where: [facility] Invalid Interpretation Code [address] [place] [address]- \. br\ Wednesday 10:15 AM EDT \.br\ With: Hermes CASON, Sabino Rosa\.br\ Where: [facility] Family Medicine Office/Clini c Noteon 08-30-2023 Family Medicine Office/Clinic Note HPI Staff Jeremie is an 82 year old male presenting for 3 month follow up DM and diabetic shoes GOLD 1/2 dose metformin in am to see if helps w/ diarrhea He did this and it doesn't help Do you have any of the following symptoms? Foot Exam: Dr Hardy did on 11/26/22 Eye Exam: UTD Last A1C: 6.3% 11/25/22 Statin: rosuvastatin 10mg questions/concerns: needs rx and paperwork for diabetic shoes History of Present Illness - Pt here for follow up. - Diarrhea has improved. - Pt states he has not followed up with GI yet. - Pt still has the abdominal pain. - Has not checked his BS. Review of Systems PHQ Score Initial Depression Screen Score: 0 SCORE Physical Exam Vitals & Measurements T: 36.5 ?C(Oral) HR: 72(Peripheral) RR: 20 BP: 122/66 SpO2: 94% HT: 64 in HT: 162 cm WT: 78.4 kg WT: 172.48 lb BMI: 29.87 General: alert, no acute distress ENMT: oral mucosa moist, Cardiovascular: regular rate and rhythm, normal peripheral perfusion Respiratory: Lungs CTA, respirations non labored Extremities: no deformity, no trauma, Callouses noted on both feet. Neurological: oriented x 4, LOC appropriate for age, CN II-XII intact, motor strength equal & normal bilaterally, speech normal Abdomen: Soft, Nontender, Non-distended, + BS Assessment/Plan 1. Type 2 diabetes mellitus without complication, without long-term current use of insulin (E11.9: Type 2 diabetes mellitus without complications) - Unsure what his BS are today. - Awais Check today. - Will hold Metformin to see if the diarrhea gets better. - If not will have the patient go back on the meds. - DM shoes ordered. Ordered: A1c POC 59069 2. Irregular bowel habits (R19.8: Other specified symptoms and signs involving the digestive system and abdomen) - No Gallbladder. - Will try cholestyramin Ordered: A1c POC 42479 3. Primary hypertension (I10: Essential (primary) hypertension) - At goal Ordered: A1c POC 11101 4. BMI 29.0-29.9,adult (Z68.29: Body mass index [BMI] 29.0-29.9, adult) - BMI education given Ordered: A1c POC 96525 5. Over weight (E66.3: Overweight) - Diet and exercise advised Ordered: A1c POC 92034 6. Former smoker (Z87.891: Personal history of nicotine dependence) - Please stop smoking. Orders: cholestyramine, 5 gram, 1 packet(s), Oral, BID, 180 packet(s), Refill(s) 0, [email or web address] #[id number], 162, cm, 08/30/23 10:00:00 EDT, Height/Length Dosing, 78.4, kg, 08/30/23 10:00:00 EDT, Weight Dosing metformin, 500 mg = 1 tab(s), Oral, Daily, # 180 tab(s), Refills(s) 0, Pharmacy: [email or web address] #[id number], 163, cm, 05/31/23 10:14:00 EST, Height/Length Dosing, 80.2, kg, 05/31/23 10:14:00 EST, Weight Dosing Follow-up No qualifying data available Problem List/Past Medical History Ongoing Bloating BMI 30.0-30.9,adult Chronic GERD Colon polyp Diabetic autonomic neuropathy associated with type 2 diabetes mellitus Diverticulosis Fecal urgency FH: stomach cancer GERD with apnea Glaucoma Hemorrhoids Hypercholesterolemia Irregular bowel habits Lump on neck Numbness of right hand Osteoarthritis Pacemaker Pancreatic cyst Personal history of prostate cancer Primary hypertension Prostatitis PUD (peptic ulcer disease) Right flank pain, chronic Sleep apnea Swollen lymph nodes Type 2 diabetes mellitus without complication, without long-term current use of insulin Urinary incontinence 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 Medications Albuterol (Eqv-ProAir HFA) 90 mcg/inh inhalation aerosol, See Instructions amLODIPine 5 mg Tab, 5 mg= 1 tab(s), Oral, Daily, 1 refills APAP/butalbital/caffeine 325 mg-50 mg-40 mg Tab Aspir 81, 81 mg, Oral, Daily cholestyramine 4 g/5 g Oral Pwdr, 5 gm= 1 packet(s), Oral, BID dorzolamide ophthalmic 2% solution, 1 drop(s), OPTH, BID Flonase 0.05 mg/inh Clark, 1 spray(s), Nasal, BID fluticasone Nasal 0.05 mg/inh Dupuyer furosemide 20 mg Tab, 20 mg= 1 tab(s), Oral, Daily irbesartan 300 mg Tab, 300 mg= 1 tab(s), Oral, Daily isosorbide mononitrate, 30 mg, Oral, qAM latanoprost ophthalmic, qPM latanoprost Opth 0.005% Janee loperamide 2 mg Tab, 2 mg= 1 tab(s), Oral, q4hr Metamucil metformin 500 mg ER Tab, 500 mg= 1 tab(s), Oral, Daily Misc DME Prescription, See Instructions Misc DME Prescription, See Instructions Multivitamin, Therapeutic w/ Minerals, Oral, Daily omeprazole 40 mg Cap-DR, See Instructions Pepcid 20 mg Tab, 20 mg= 1 tab(s), Oral, Once a day (at bedtime) Plavix 75 mg Tab, 75 mg= 1 tab(s), Oral, Daily rosuvastatin 10 mg Tab, See Instructions, 3 refills sotalol 80 mg Tab, 0.5 tab, Oral, B (more content not included)... Normal [facility] Comment on above: Result Comment: Elec tronically Signed By: Hermes CASON, Sabino Branham.br\Date and Time Signed: 08/30/23 10:21 EDT Operative Reporton Operative Report [id number] Normal [facility] Gastroenterology Office/Clin ic Noteon 06-25-2023 Gastroenterology Office/Clinic Note Chief Complaint follow up to colon [facility] Staff This is a 82 year old [...] taking Plavix. Patient was previously referred to [facility] regarding pancreatic cyst. Patient had previous EGD 05/[address] Larsen that revealed clean-based ulcers in the antrum, mild antral gastritis, subcentimeter gastric polyps, biopsy of stomach revealed moderate chronic active gastritis, negative for intestinal metaplasia, stomach polyp revealed fundic gland polyp. Patient with family history of GI cancer?patient's paternal grandfather with stomach cancer, cousin with pancreatic cancer. Patient had previous colonoscopy in 2017 that revealed diverticulosis and hemorrhoids. Previous review of outside records from [facility] from 03/[address] abdomen/pelvis that revealed prominent amount of fluid in colon suggesting diarrhea, diverticulosis. Patient had previous ultrasound of RUQ 09/2019 at outside facility that revealed 0.7 cm pancreatic cyst and cholelithiasis. Patient reports history of cholecystectomy in 2019. Previous labs at outside facility [id number] revealed normal BUN, normal creatinine, normal LFTs, normal H&H. Outside record from [facility] from 04/01/2020 indicated patient had RUQ ultrasound that revealed no acute process, fatty change in liver. Ultrasound of abdomen 12/17/2022 revealed 6 mm pancreatic cyst and radiology recommended MRI with contrast or MRCP in 2 years. 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 I recommended for patient to be referred to [facility] for further evaluation regarding pancreatic cyst and patient was referred. Previous EGD with general surgery 04/15/2023 that was normal. Biopsy of antrum revealed mild chronic inactive gastritis, negative for intestinal metaplasia, negative for H. pylori. Stool testing negative for infectious process 03/10/23. Patient was evaluated at [facility]: Dr. Pringle regarding pancreatic cyst 04/28/2023 and [...] well nourished, in no acute distress Head: Normocephalic/atraumatic Lungs: Normal respiratory effort and clear to ausculta (more content not included)... Normal [facility] Comment on above: Result Comment: Elec tronically [...] liquor (44 mL). General instructions ? Take [id number] and prescription medicines only as told by [...] Revised: 08/21/2020 D (more content not included)... [facility] Reminderson 06-25-2023 Reminders - From: Anjali Ruby CNP To: Yolanda Braden; Sent: 06/25/2023 11:43:39 EST Show up: 06/25/2023 11:44:00 EST Subject: Ambulatory Reminder Reminder/Recall Colonoscopy in 2028. 06/14/2028 5 year colon recall From: Yolanda Braden To: REPLACED BY [facility] - Reminders/Recalls; Sent: 06/25/2023 13:55:08 EST ! Show up: 04/16/2028 13:55:00 EST Due Date/Time: 05/17/2028 13:55:00 EST [facility] Consultation Noteon 06-23-19 24 Consultation Note [id number] [facility] IntraOperative Documentson 0 06-21-2023 IntraOperative Documents [id number]#1.00TIFF Normal [facility] Postoperative Documentson Postoperative Documents [id number]#1.00TIFF Normal [facility] Consenton 06-16-2023 Consent [id number]#1.00TIFF Normal [facility] Discharge Instructionson Discharge Instructions [id number]#1.00TIFF Normal [facility] Main OR Intraoperative Recor don 06-15-2023 Main OR Intraoperative Record IntraOp Document Type FT Summary Primary Physician: Inez Henderson MD Finalized Date/Time: 06/15/23 09:13:07 Pt. Name: JEREMIE BENNETT/Sex: 1940 Male Med Rec #: [id number] Physician: Inez Henderson MD Financial #: [id number] Pt. Type: O Room/Bed: / Admit/Disch: 06/14/23 [...] Ernesto DENSON, Gordy Jackson RN, Alize Cabrera WINDER CONTORT OPERATOR, Negar Campbell Role Performed Anesthesiologist Mobile Application Engineer - Primary Scrub - Primary Web Design Intern Time In 06/14/23 14:14:00 06/14/23 14:14:00 06/14/23 14:14:00 Time Out 06/14/23 14:37:00 06/14/23 14:37:00 06/14/23 14:37:00 Procedure COLONOSCOPY(.) COLONOSCOPY(.) COLONOSCOPY(.) Comments Dr. Martinez supervising case Last Modified By: Renetta ESCALANTE, Alize Jackson RN, Alize Jackson RN, Alize 06/14/23 14:37:40 F 06/14/23 14:37:40 F 06/14/23 [...] Out Gordy Garcia, Given Participants Renetta ESCALANTE, Alize , Rick WINDER CONTORT OPERATOR, Beatriz Espino MD, Inez Funes Time Out [...] and tissue Entry 1 Skin Integrity Intact, [place], Warm, and Skin Abnormality No Dry Outcomes [...] 1 Procedure (more content not included)... Normal [facility] Consent for Treatmenton 05-18 Consent for Treatment [id number]#1.00TIFF [facility] Discharge Instructionson Discharge Instructions JEREMIE BENNETT :1940 [...] care physician. This Is Your Medications List APAP/butalbital/caffeine (APAP/butalbital/caffeine 325 mg-50 mg-40 mg Tab) Misc Prescription (Misc DME Prescription) Misc Prescription (Misc DME Prescription) albuterol (Albuterol (Eqv-ProAir HFA) 90 mcg/inh inhalation aerosol) amlodipine (amLODIPine 5 mg Tab) aspirin (Aspir 81) clopidogrel (Plavix 75 mg Tab) dorzolamide ophthalmic (dorzolamide ophthalmic 2% solution) fluticasone nasal (Flonase 0.05 mg/inh Clark) fluticasone nasal (fluticasone Nasal 0.05 mg/inh Dupuyer) furosemide (furosemide 20 mg Tab) glimepiride (glimepiride [...] zonisamide (zonisamide 25 mg Cap) Procedure History Esophagogastroduodenoscopy (04/15/2023), Esophagogastroduodenoscopy (05/20/2020), Angioplasty, Cardiac pacemaker procedure, Cataract, Cholecystectomy, Colonoscopy, Hernia repair, Prostate excision, Tonsillectomy, Vasectomy. Discharge Vitals Temperature (Temporal Artery) 36.6 ?C Heart Rate (Monitored) 60 Respiratory Rate 19 Blood Pressure 119/62 Height 163 cm Weight 79.8 kg BMI 30.04 What to do next Instructions From Your Doctor Event Name Event Result Pharmacy Information Other: [facility] [place] Previously Scheduled Follow-Up Appointments Wednesday 1:20 PM EST With: Anjali Ruby CNP Where: [facility] Invalid Interpretation Code [address] [place] [address]- \. br\ Wednesday 1:00 PM EDT \.br\ With:\.br\ Where: [facility] Comment on above: Result Comment: Elec tronically [...] procedure. Pre-procedure diagnosis: Diarrhea, clinically significant. Medications Anticoagulant/antiplatelet Plavix 7 days ago. ASA Classification: Class [...] hours. Education and Follow-up: Counseled: Patient, Family. [facility] Comment on above: Result Comment: Elec tronically Signed By: Inez Henderson MD\.br\Date and Time Signed: 06/14/23 14:39 EST Main OR PACU I Recordon 05-18 Main OR PACU I Record PACU Phase I Document Type FT Summary Primary Physician: Inez Henderson MD Finalized Date/Time: 06/14/23 17:33:36 Pt. Name: JEREMIE BENNETT/Sex: 1940 Male Med Rec #: [id number] Physician: Inez Henderson MD Financial #: [id number] Pt. Type: O Room/Bed: / Admit/Disch: 06/14/23 [...] By: Colette Cooley RN 06/14/23 17:33 Normal [facility] Main OR Preoperative Recordo n 06-14-2023 Main OR Preoperative Record Holding Area Document Type FT Summary Primary Physician: Inez Henderson MD Finalized Date/Time: 06/14/23 12:48:41 Pt. Name: JEREMIE BENNETT/Sex: 1940 Male Med Rec #: [id number] Physician: Inez Henderson MD Financial #: [id number] Pt. Type: O Room/Bed: / Admit/Disch: 06/14/23 [...] tolerated well, last bowel movement was clear yellow./MYARN Finalized By: Sabine Penny RN Document Signatures Signed By: Sabine Penny RN 06/14/23 12:48 Normal [facility] Monitor Recordon 06-14-2023 Monitor Record [id number] Normal [facility] Patient Education - Texton 0 06-14-2023 Patient [...] ? neck pain Some NSAIDs are available [id number], without the need for a prescription. However, [...] than your doctor has prescribed. Follow the qawu-[id number] labels and do not exceed the recommended [...] through weak (more content not included)... Normal [facility] Progress Note-Physicianon Progress Note-Physician Patient: JEREMIE BENNETT Age: 82 years Sex: Male : 1940 Associated Diagnoses: None Author: Macario Martinez Jr., DO Postoperative Information Postoperative disposition: Postoperative disposition: Home. Optimetrix number: Optimetrix number [id number]. Anesthetic utilized: General. Physical Examination Vital Signs [...] Surgery Unit, and To home ). Normal [facility] Comment on above: Result Comment: Elec tronically [...] MOUTH EVERY 6 HOURS, [facility] ([facility]), 163, cm, 11/04/22 15:03:00 EDT, Height/Length Dosing, 76, kg, 11/04/22 15:03:00 EDT, Weight Dosing Flonase 0.05 mg/inh Clark: 1 spray(s), Nasal, BID, 16 gram, Refill(s) 0, each nostril, [facility] ([facility] ), 167.6, cm, 08/24/22 8:10:00 EDT, Height/Length Dosing, 83.4, kg, 08/24/22 8:10:00 EDT, Weight Dosing amLODIPine 5 mg Tab: 5 mg = 1 tab(s), Oral, Daily, # 90 tab(s), Refills(s) 1, Pharmacy: [email or web address] #[id number], 163, cm, 05/31/23 10:14:00 EST, Height/Length Dosing, 80.2, kg, 05/31/23 10:14:00 EST, Weight Dosing metformin 500 mg ER Tab: 1,000 mg = 2 tab(s), Oral, Daily, # 180 tab(s), Refills(s) 0, Pharmacy: [email or web address] #[id number], 163, cm, 05/31/23 10:14:00 EST, Height/Length Dosing, 80.2, kg, 05/31/23 10:14:00 EST, Weight Dosing omeprazole 40 mg Cap-DR: See Instructions, TAKE 1 CAPSULE BY MOUTH DAILY, # 90 cap(s), Refills(s) 3, Pharmacy: [facility] ([facility]), 163, cm, 12/15/22 12:03:00 EDT, Height/Length Dosing, 73.3, kg, 12/15/22 12:03:00 EDT, Weight Dosing rosuvastatin 10 mg Tab: See Instructions, TAKE 1 TABLET BY MOUTH DAILY, # 90 tab(s), Refills(s) 3, Pharmacy: [facility] #[id number], 163, cm, 05/31/23 10:14:00 EST, Height/Length Dosing, 80.2, kg, 05/31/23 10:14:00 EST, Weight Dosing Documented Medications Documented APAP/butalbital/caffeine 325 mg-50 mg-40 mg Tab: Refill(s) 0, Headache Aspir 81: 81 mg, Oral, Daily, Refills(s) 0, Prophylaxis Metamucil: Refills(s) 0, Constipation [facility] DME Prescription: See Instructions, one touch ultra lancets Use to test sugars once a day [facility] DME Prescription: See Instructions, one touch ultra test strips test sugars once a day Multivitamin, Therapeutic w/ Minerals: Oral, Daily, Refill(s) 0, Prophylaxis Plavix 75 mg Tab: 75 mg = 1 tab(s), Oral, Daily, Refills(s) 0, Blood Thinner dorzolamide ophthalmic 2% solution: 1 drop(s), OPTH, BID, Refill(s) 0, each eye fluticasone Nasal 0.05 mg/inh Dupuyer: Refill(s) 0, 1 Unknown, 0 Refill(s), 1 Clark. furosemide 20 mg Tab: 20 mg = [...] 5 mg = 1 tab(s), Oral, Daily APAP/butalbital/caffeine 325 mg-50 mg-40 mg Tab Aspir 81 81 mg, Oral, Daily dorzolamide ophthalmic 2% solution 1 drop(s), OPTH, BID Flonase 0.05 mg/inh Clark 1 spray(s), Nasal, BID fluticasone Nasal 0.05 mg/inh Dupuyer furosemide 20 mg Tab 20 mg = [...] Instructions Multivitamin, Thera (more content not included)... [facility] Comment on above: Result Comment: Elec tronically Signed By: Macario Martinez Jr., DO.marco a\Date and Time Signed: 06/14/23 12:59 EST Operative Reporton Operative Report [id number]#1.00TIFF [facility] Insurance Correspondenceon 0 06-04-2023 Insurance Correspondence [id number]#1.00TIFF [facility] Consent for Procedure/Surger yon 06-02-2023 Consent for Procedure/Surgery [id number]#1.00TIFF [facility] Formson 06-01-2023 Forms [id number]#1.00TIFF [facility] Ambulatory Visit Summaryon 0 05-31-2023 Ambulatory Visit [...] Contact prescribing physician if questions or concerns APAP/butalbital/caffeine (APAP/butalbital/caffeine 325 mg-50 mg-40 mg Tab) Misc Prescription (Misc DME Prescription) Misc Prescription (Misc DME Prescription) albuterol (Albuterol (Eqv-ProAir HFA) 90 mcg/inh inhalation aerosol) aspirin (Aspir 81) clopidogrel (Plavix 75 mg Tab) dorzolamide ophthalmic (dorzolamide ophthalmic 2% solution) fluticasone nasal (Flonase 0.05 mg/inh Clark) fluticasone nasal (fluticasone Nasal 0.05 mg/inh Dupuyer) furosemide (furosemide 20 mg Tab) glimepiride (glimepiride 2 mg Tab) irbesartan (irbesartan 300 mg Tab) isosorbide mononitrate latanoprost ophthalmic latanoprost ophthalmic (latanoprost Opth 0.005% Janee) loperamide (loperamide 2 mg Tab) multivitamin with minerals (Multivitamin, Therapeutic w/ Minerals) omeprazole (omeprazole 40 mg Cap-DR) psyllium (Metamucil) sotalol (sotalol 80 mg Tab) tizanidine (tiZANidine 4 mg Tab) zonisamide (zonisamide 25 mg Cap) Procedures Performed Esophagogastroduodenoscopy (04/15/2023), Esophagogastroduodenoscopy (05/20/2020), Angioplasty, Cardiac pacemaker procedure, Cataract, Cholecystectomy, Colonoscopy, Hernia repair, Prostate excision, Tonsillectomy, Vasectomy. Discharge Vitals Temperature (Temporal Artery) 36.5 ?C Heart Rate (Peripheral) 64 Respiratory Rate 16 Blood Pressure 116/72 Height 163 cm Height 64 in Weight 80.2 kg Weight 176.44 lb BMI 30.19 What to do next Scheduled Follow-Up Appointments Wednesday 1:20 PM EST With: Anjali Ruby CNP Where: [facility] Invalid Interpretation Code [address] [place] [address]- \. br\ Wednesday 1:00 PM EDT \.br\ With:\.br\ Where: [facility] Medicine Office/Clini c Noteon 05-31-2023 [...] year 1101F (more content not included)... Normal [facility] Comment on above: Result Comment: Elec tronically Signed By: Hermes CASON, Sabino Rosa\.br\Date and Time Signed: 05/31/23 10:38 EST Patient Educationon 05-31-19 24 Patient Education Cardiovascular Hypertension, Adult High blood [...] 1? oz glass (more content not included)... [facility] Consultation Noteon 05-27-19 24 Consultation Note [id number]#1.00TIFF [facility] Ambulatory Visit Summaryon 0 05-25-2023 Ambulatory Visit [...] Contact prescribing physician if questions or concerns APAP/butalbital/caffeine (APAP/butalbital/caffeine 325 mg-50 mg-40 mg Tab) Misc Prescription (Mis DME Prescription) Misc Prescription (Mis DME Prescription) albuterol (Albuterol (Eqv-ProAir HFA) 90 mcg/inh inhalation aerosol) amlodipine (amLODIPine 5 mg Tab) aspirin (Aspir 81) clopidogrel (Plavix 75 mg Tab) dorzolamide ophthalmic (dorzolamide ophthalmic 2% solution) fluticasone nasal (Flonase 0.05 mg/inh Clark) fluticasone nasal (fluticasone Nasal 0.05 mg/inh Dupuyer) furosemide (furosemide 20 mg Tab) gabapentin (gabapentin 600 mg Tab) glimepiride (glimepiride 2 mg Tab) irbesartan (irbesartan 300 mg Tab) isosorbide mononitrate latanoprost ophthalmic latanoprost ophthalmic (latanoprost Opth 0.005% Janee) loperamide (loperamide 2 mg Tab) metformin (metformin 500 mg ER Tab) multivitamin with minerals (Multivitamin, Therapeutic w/ Minerals) omega-3 polyunsaturated fatty acids ([place]-3 Fish Oil) omeprazole (omeprazole 40 mg Cap-DR) polyethylene glycol 3350 with electrolytes (Plenvu oral powder for reconstitution) psyllium (Metamucil) rosuvastatin (rosuvastatin 10 mg Tab) sotalol (sotalol 80 mg Tab) sucralfate (sucralfate 1 g Tab) tizanidine (tiZANidine 4 mg Tab) zonisamide (zonisamide 25 mg Cap) Procedures Performed Esophagogastroduodenoscopy (04/15/2023), Esophagogastroduodenoscopy (05/20/2020), Angioplasty, Cardiac pacemaker procedure, Cataract, Cholecystectomy, Colonoscopy, Hernia repair, Prostate excision, Tonsillectomy, Vasectomy. Discharge Vitals Heart Rate (Peripheral) 88 Respiratory Rate 16 Blood Pressure 113/65 Height 163 cm Height 64 in Weight 79.8 kg Weight 175.56 lb BMI 30.04 What to do next Scheduled Follow-Up Appointments Wednesday 10:00 AM EST With: Hermes CASON, Sabino Rosa Where: [facility] Invalid Interpretation Code [address] [facility] [place] [address] [place] [address]- \. br\ Wednesday 1:00 PM EDT \.br\ With:\.br\ Where: [facility] Gastroenterology Office/Clin ic Noteon 05-25-2023 Gastroenterology Office/Clinic [...] taking Plavix. Patient was previously referred to [facility] regarding pancreatic cyst. Patient had previous EGD [...] hemorrhoids. Previous review of outside records from [facility] from 03/[address] abdomen/pelvis that revealed prominent amount of fluid in colon suggesting diarrhea, diverticulosis. Patient had previous ultrasound of RUQ 09/2019 at outside facility that revealed 0.7 cm pancreatic cyst and cholelithiasis. Patient reports history of cholecystectomy in 2019. Previous labs at outside facility [id number] revealed normal BUN, normal creatinine, normal LFTs, normal H&H. Outside record from [facility] from 04/01/2020 indicated patient had RUQ ultrasound that revealed no acute process, fatty change in liver. Ultrasound of abdomen 12/17/2022 revealed 6 mm pancreatic cyst and radiology recommended MRI with contrast or MRCP in 2 years. 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 I recommended for patient to be referred to [facility] for further evaluation regarding pancreatic cyst and [...] infectious process 03/10/23. Patient was evaluated at [facility]: Dr. Pringle regarding pancreatic cyst 04/28/2023 and [...] well nourished, in no acute distress Head: Normocephalic/atraumatic Lungs: Normal respiratory effort and clear to [...] metaplasia, sto (more content not included)... Normal [facility] Comment on above: Result Comment: Elec tronically Signed By: Flori GARZA, Anjali Omalley\.marco a\Date and Time Signed: 05/25/23 12:52 EST [...] grapefruit, pineapple, and nury. Vegetables Deep-fried vegetables. [place]uran fries. Any vegetables prepared with added fat. [...] gastroesophageal reflux di (more content not included)... [facility] Consultation Noteon 05-24-19 Consultation Note [id number]#1.00TIFF [facility] RAD - MISCon 05-24-2023 RAD - MIS [id number]#1.00TIFF [facility] Operative Reporton Operative Report [id number]#1.00TIFF [facility] IntraOperative Documentson 1 06-22-2022 IntraOperative Documents [id number]#1.00TIFF [facility] Progress Note-Physicianon Progress Note-Physician Patient: JEREMIE BENNETT Age: 82 years Sex: Male : 1940 Associated Diagnoses: None Author: MD Gutierrez Ahmad F Postoperative Information Postoperative disposition: Postoperative disposition: To PACU. Optimetrix number: Optimetrix number [id number]. Anesthetic utilized: General. Health Status Allergies: Allergic [...] when meets criteria ( To home ). [facility] Comment on above: Result Comment: Elec tronically [...] MOUTH EVERY 6 HOURS, [facility] ([facility]), 163, cm, 11/04/22 15:03:00 EDT, Height/Length Dosing, 76, kg, 11/04/22 15:03:00 EDT, Weight Dosing Flonase 0.05 mg/inh Clark: 1 spray(s), Nasal, BID, 16 gram, Refill(s) 0, each nostril, [facility] ([facility] ), 167.6, cm, 08/24/22 8:10:00 EDT, Height/Length Dosing, 83.4, kg, 08/24/22 8:10:00 EDT, Weight Dosing Plenvu oral powder for reconstitution: See Instructions, 1 EA, Refill(s) 0, Prior to colonoscopy., [email or web address] #[id number], 163, cm, 12/15/22 12:03:00 EDT, Height/Length Dosing, [...] 15:03:00 EDT, Weight Dosing Documented Medications Documented APAP/butalbital/caffeine 325 mg-50 mg-40 mg Tab: Refill(s) 0, Headache Aspir 81: 81 mg, Oral, Daily, Refills(s) 0, Prophylaxis Metamucil: Refills(s) 0, Constipation [facility] DME Prescription: See Instructions, one touch ultra lancets Use to test sugars once a day [facility] DME Prescription: See Instructions, one touch ultra test strips test sugars once a day Multivitamin, Therapeutic w/ Minerals: Oral, Daily, Refill(s) 0, Prophylaxis [place]-3 Fish Oil: Oral, Daily, Refills(s) 0, Prophylaxis [...] All Problems Primary hypertension / SNOMED CT 71860420 / Confirmed Hypercholesterolemia / SNOMED CT 31277408 / Confirmed Osteoarthritis / SNOMED CT 3209336040 / Confirmed Sleep apnea / SNOMED CT 680464336 / Confirmed Vitamin D deficiency / SNOMED CT 21481504 / Confirmed GERD with apnea / SNOMED CT 3945451150 / Confirmed Diabetic autonomic neuropathy associated with type 2 diabetes mellitus / SNOMED CT 5390745729 / Confirmed Glaucoma / SNOMED CT 51596514 / Confirmed Pacemaker / SNOMED CT 8716612612 / Confirmed Type 2 diabetes mellitus without complication, without long-term current use of insulin / ICD-10-CM E11.9 / Confirmed Upper abdominal pain / SNOMED CT 676629100 / Confirmed Lower abdominal pain / SNOMED CT 41186292 / Confirmed PUD (peptic ulcer disease) / SNOMED CT 61805822 / Confirmed BMI 30.0-30.9,adult / SNOMED CT 918990180 / Confirmed Right flank pain, chronic / SNOMED CT 771818298 / Confirmed Right-sided chest wall pain / SNOMED CT 531438418 / Confirmed Personal history of prostate cancer / SNOMED CT 9482504702 / Confirmed Leaking of urine / SNOMED CT 6114537992 / Confirmed Urinary incontinence without sensory awareness / SNOMED CT 6052585063 / Confirmed Mixed incontinence / SNOMED (more content not included)... Normal [facility] Comment on above: Result Comment: Elec tronically Signed By: MD Matt, Anaya Salgado\.br\Date and Time Signed: 04/17/23 20:24 EST Consenton 04-16-2023 Consent [id number]#1.00TIFF [facility] Discharge Instructionson Discharge Instructions [id number]#1.00TIFF [facility] Main OR Intraoperative Recor don 04-16-2023 Main OR Intraoperative Record IntraOp Document Type FT Summary Primary Physician: Gio CASON, Gordy Rosa Finalized Date/Time: 04/16/23 09:59:57 Pt. Name: JEREMIE BENNETT Annabelle Garner/Sex: 1940 Male Med Rec #: [id number] Physician: Gordy Powers MD Financial #: [id number] Pt. Type: O Room/Bed: / Admit/Disch: 04/15/23 [...] Entry 2 Entry 3 Case Attendee Jose BUSINESS PROCESS EXPERT, Daniel Javier, Minerva Cabrera WINDER CONTORT OPERATOR, Negar Campbell Role Performed BUSINESS PROCESS EXPERT Staff - Other Scrub - Primary Time [...] Tripp Role Performed Surgeon - Primary Mobile Application Engineer - Primary Time In 04/15/23 13:08:00 04/15/23 13:08:00 Time Out 04/15/23 13:21:00 04/15/23 13:21:00 Procedure EGD(.) EGD(.) Comments Last Modified By: Sabine Penny RN, RN, Kristin N 04/15/23 13:21:27 04/15/23 13:21:27 Perioperative Protocols FT [...] PreOp Antibiotic No Time Out Minerva Javier, Myron Participants Daniel Garcia CRNA, Rick FAYE, Gio Espino MD, John E., Sabine Penny RN Time Out Complete 04/15/23 [...] and tissue Entry 1 Skin Integrity Intact, [place], Warm, and Skin Abnormality No Dry Outcomes [...] Positioning Device (more content not included)... Normal [facility] Postoperative Documentson Postoperative Documents [id number]#1.00TIFF [facility] Consent for Treatmenton 03-19 Consent for Treatment [id number]#1.00TIFF [facility] Discharge Instructionson Discharge Instructions JEREMIE BENNETT :1940 Visit Date:04/15/2023 Inpatient Discharge Instructions Your Care Team Admitting Physician - Gordy Powers MD Referring Physician - Gordy Powers MD Reason for Your Visit ABDOMINAL PAIN Tests Performed Pathology Tissue Exam -- Results Pending -- Please visit your patient portal for your results or contact your primary care physician. This Is Your Medications List APAP/butalbital/caffeine (APAP/butalbital/caffeine 325 mg-50 mg-40 mg Tab) Misc Prescription (Misc DME Prescription) Misc Prescription (Misc DME Prescription) albuterol (Albuterol (Eqv-ProAir HFA) 90 mcg/inh inhalation aerosol) amlodipine (amLODIPine 5 mg Tab) aspirin (Aspir 81) clopidogrel (Plavix 75 mg Tab) dorzolamide ophthalmic (dorzolamide ophthalmic 2% solution) fluticasone nasal (Flonase 0.05 mg/inh Clark) furosemide (furosemide 20 mg Tab) gabapentin (gabapentin 600 mg Tab) irbesartan (irbesartan 300 mg Tab) isosorbide mononitrate latanoprost ophthalmic loperamide (loperamide 2 mg Tab) metformin (metformin 500 mg ER Tab) multivitamin with minerals (Multivitamin, Therapeutic w/ Minerals) omega-3 polyunsaturated fatty acids ([place]-3 Fish Oil) omeprazole (omeprazole 40 mg Cap-DR) polyethylene glycol 3350 with electrolytes (Plenvu oral powder for reconstitution) psyllium (Metamucil) rosuvastatin (rosuvastatin 10 mg Tab) sotalol (sotalol 80 mg Tab) sucralfate (sucralfate 1 g Tab) tizanidine (tiZANidine 4 mg Tab) zonisamide (zonisamide 25 mg Cap) Procedure History Esophagogastroduodenoscopy (04/15/2023), Esophagogastroduodenoscopy (05/20/2020), Angioplasty, Cardiac pacemaker procedure, Cataract, Cholecystectomy, Colonoscopy, Hernia repair, Prostate excision, Tonsillectomy, Vasectomy. What to do next Instructions From Your Doctor Event Name Event Result Pharmacy Information Other: [place], [place] Previously Scheduled Follow-Up Appointments Wednesday 1:40 PM EST With: Anjali Ruby CNP Where: [facility] Invalid Interpretation Code [address] [place] [address]- \. br\ Wednesday 1:00 PM EDT \.br\ With:\.br\ Where: [facility] Comment on above: Result Comment: Elec tronically Signed By: Marcel ESCALANTE, Gris Araiza\.br\Date and Time Signed: 04/15/23 13:27 EST Inpatient Patient Summaryon 04-15-2023 Inpatient Patient Summary [place] [address] [facility] Clinical Discharge Instructions PERSON INFORMATION Name: JEREMIE BENNETT [facility]#:[id number] PHYSICIANS Admitting Physician: Gordy Powers MD Attending Physician: Gordy Powers MD PCP: Sabino Cooper MD Discharge Diagnosis: Comment: PATIENT EDUCATION INFORMATION Instructions: Upper Endoscopy, Adult, Care After; Endoscopy, Care After Procedure [facility] Medication Leaflets: Follow up: With: Address: When: Gordy Powers MD, SUR Comments: Office will call with results. Type Location Start [facility] Follow Up [facility] 05/03/2023 1:40 PM 05/03/2023 2:00 PM [facility]irmed [facility] 10:00 AM 05/31/2023 10:15 AM Confirmed [facility] 1:00 PM 11/08/2023 2:00 PM Confirmed MEDICATION LIST Medications to Continue with No Changes Other Medications albuterol (Albuterol (Eqv-ProAir HFA) 90 mcg/inh inhalation aerosol) USE 2 INHALATIONS BY MOUTH EVERY 6 HOURS. Refills: 6. amlodipine (amLODIPine 5 mg Tab) 1 Tablets By Mouth every day. APAP/butalbital/caffeine (APAP/butalbital/caffeine 325 mg-50 mg-40 mg Tab) aspirin (Aspir 81) 81 Milligram By Mouth every day. clopidogrel (Plavix 75 mg Tab) 1 Tablets By Mouth every day. dorzolamide ophthalmic (dorzolamide ophthalmic 2% solution) 1 Drops Ophthalmic 2 times a day. each eye. fluticasone nasal (Flonase 0.05 mg/inh Clark) 1 Sprays Nasal Inhalation 2 times a [...] Mouth every day. omega-3 polyunsaturated fatty acids ([place]-3 Fish Oil) By Mouth every day. omeprazole [...] Mouth 2 times a day. Comment: [facility] Main OR PACU I Recordon 03-19 Main OR PACU I Record PACU Phase I Document Type FT Summary Primary Physician: Gordy Powers MD Finalized Date/Time: 04/15/23 13:58:46 Pt. Name: JEREMIE BENNETT/Sex: 1940 Male Med Rec #: [id number] Physician: Gordy Powers MD Financial #: [id number] Pt. Type: O Room/Bed: / Admit/Disch: 04/15/23 [...] Signed By: Gris Rod RN 04/15/23 13:58 [facility] Main OR Preoperative Recordo n 04-15-2023 Main OR Preoperative Record Holding Area Document Type FT Summary Primary Physician: Gordy Powers MD Finalized Date/Time: 04/15/23 12:46:57 Pt. Name: JEREMIE BENNETT D.O.B./Sex: 1940 Male Med Rec #: [id number] Physician: Gordy Powers MD Financial #: [id number] Pt. Type: O Room/Bed: / Admit/Disch: 04/15/23 [...] By: Letty Sanches RN 04/15/23 12:46 Normal [facility] Monitor Recordon 04-15-2023 Monitor Record [id number] Normal [facility] Monitor Record [id number]#1.00TIFF Normal [facility] Operative Reporton Operative Report Patient: ROXANNE BENNETT Age: 82 years Sex: Male : 1940 Associated Diagnoses: None Author: Gordy Powers MD Pre-Procedure Procedure Date 04/15/2023 13:33:00 . Procedure Type: Esophagogastroduodenoscopy with biopsy. Procedure provider Performed by Gordy [...] Devices/ implants: none left in place. [facility] Administration Comment on above: Result Comment: Elec tronically Signed By: Gordy Powers MD\.br\Date and Time Signed: 04/15/23 13:35 EST Outpatient Surgery Discharge Instructionon 04-15-2023 Outpatient Surgery Discharge Instruction [place] [id number] Patient Discharge Instructions PERSON INFORMATION Name: JEREMIE [...] was present when discharge instructions were given __ Patient Signature Date Clinican/Nurse Signature Date Follow up: With: Address: When: Gio CASON, TC Ferrell Comments: Office will call with results. Type Location Start [facility] Follow Up [facility] 05/03/2023 1:40 PM 05/03/2023 2:00 PM [facility] 10[facility]00 AM 05/31/2023 10:15 AM Confirmed FM Medicare Wellness [facility]08[facility]23 1:00 PM 11/08/2023 2:00 PM Confirmed Pharmacy Information: Other: MALINA Lucio You may receive a survey from [employer] asking you to rate your care experience. Your feedback is important and will help us understand what we do well and how we can improve the quality of care we provide to you, your loved ones and our community. It?s an honor to serve you. Thank you for choosing [facility] HERE ARE THE MEDICATION CHANGES THAT OCCURRED DURING YOUR HOSPITAL STAY Medications to Continue with No Changes Other Medications albuterol (Albuterol (Eqv-ProAir HFA) 90 mcg/inh inhalation aerosol) USE 2 INHALATIONS BY MOUTH EVERY 6 HOURS. Refills: 6. amlodipine (amLODIPine 5 mg Tab) 1 Tablets By Mouth every day. APAP/butalbital/caffeine (APAP/butalbital/caffeine 325 mg-50 mg-40 mg Tab) aspirin (Aspir 81) 81 Milligram By Mouth every day. clopidogrel (Plavix 75 mg Tab) 1 Tablets By Mouth every day. dorzolamide ophthalmic (dorzolamide ophthalmic 2% solution) 1 Drops Ophthalmic 2 times a day. each eye. fluticasone nasal (Flonase 0.05 mg/inh Clark) 1 Sprays Nasal Inhalation 2 times a [...] Tab) By Mouth 2 times a day. [facility] Prescription ([facility] DME Prescription) one touch ultra lancets Use to test sugars once a day. [facility] Prescription ([facility] DME Prescription) one touch ultra test strips test sugars once a day. multivitamin with minerals (Multivitamin, Therapeutic w/ Minerals) By Mouth every day. omega-3 polyunsaturated fatty acids ([place]-3 Fish Oil) By Mouth every day. omeprazole [...] ? Follow (more content not included)... Normal [facility] Office Visiton 04-14-2023 Follow-up visit [id number] Yaritza [address] P 1940 M Date Provider Department Center 04/14/2023 Jean Paul-MARGARET ARELLANO GILA Mosley Family History Problem Relation Age of Onset Coronary artery disease Mother Kidney disease Mother Heart failure Mother Family Status - Relation Status Age at Mother Level of Service:722[address] [place] OFFICE/OUTPATIENT ESTABLISHED LOW MDM 20-29 MIN Normal [facility] Consultation Noteon 04-13-20 23 Consultation Note [id number]#1.00TIFF Normal [facility] Physician Referralon 023 Physician Referral [id number]#1.00TIFF [facility] Physician Referralon 023 Physician Referral [id number]#1.00TIFF [facility] Physician Referral [id number]#1.00TIFF Catherine [facility] Itz 04-05-2023 CNPN Telephone ([id number]) SABRINAJEREMIE ([id number]) 1940 M Date Time Provider Department 04/05/23 VAISHALI PRINGLE [id number] During your visit today, we recorded the following information about you: Lolly Dumont 04/05/2023 9:55 AM Signed Received records from [facility]. Reports for imaging listed below scanned. Images pushed through 09/27/2019 US Right Upper Quad 03/31/2020 CT ABD/PEL US Right Upper Quad [facility] MRI Abdomen 02/22/2023 US Soft Tissue Head [...] mucinous neoplasm) [D49.0] Order(s):GI TUMOR BOARD - [place] [APPT42] Order #: [id number]: 1 FUTURE Prescriptions as of 04/06/2023 - isosorbide mononitrate ER (IMDUR) 30 mg 24 hr tablet Take 30 mg by mouth. - clopidogrel (PLAVIX) 75 mg tablet - furosemide (LASIX) 20 mg tablet Take 20 mg by mouth. - fluticasone (FLONASE) 50 mcg/actuation nasal spray 1 Clark. - omeprazole (PRILOSEC) 40 mg capsule Take [...] Encounter Status:Closed by LAMONTE COUCH [facility] Office Visit ([id number] ) JEREMIE BENNETT ([id number]) 1940 M Date Time Provider Department 04/01/23 1:00 PM VAISHALI PRINGLE [id number] During your visit today, we recorded the [...] GI re (more content not included)... Normal [facility] Insurance Correspondenceon 1 05-29-2022 Insurance Correspondence [id number]#1.00TIFF Normal [facility] Physician Referralon 023 Physician Referral [id number]#1.00TIFF Normal [facility] Giardia, Direct, EIAon 03-22 G. lamblia Ag IA Ql (Stl) Negative Invalid Interpretation Code Negative [facility] Comment on above: Result Comment: Perf ormed at: [address] [id number] PhD Bernice Bower Performed By: #### 3 [id number], [id number], 96670274, 92183443, 27241807, [id number] ####[facility] [address] [place] [address] O & P EXAM, ROUTINE, REFLEXo n 03-22-2023 Ova and parasites identified Concentration Nom (Stl) Comment Invalid Interpretation Code [facility] Comment on above: Result Comment: No o va, cysts, or parasites seen. One negative specimen does not rule out the possibility of a parasitic infection. Performed at: [address] [id number] PhD Bernice Bower Performed By: #### 3 [id number], [id number], 79926447, 38578393, 18451804, [id number] ####[facility] [address] [place] [address] O & P Exam, Routineon 2022 Ova and parasites identified LM Nom (Unsp spec) Final report Invalid Interpretation Code [facility] Comment on above: Result Comment: Thes e results were obtained using wet preparation(s) and trichrome stained smear. This test does not include testing for Cryptosporidium parvum, Cyclospora, or Microsporidia. Performed at: [address] [id number] PhD Bernice Bower Performed By: #### 3 [id number], [id number], 35607305, 99267054, 98928608, [id number] ####[facility] [address] [place] [address] Ambulatory Visit Summaryon 1 Ambulatory Visit Summary JEREMIE BENNETT :1940 Visit Date:03/10/2023 Ambulatory Visit Instructions Your Diagnosis Abdominal pain Loose stools Pancreatic cyst Chronic GERD Dysphagia Your Care Team Attending Physician - Anjali Ruby CNP Primary Care Physician - Sabino Cooper MD This Is Your Medications List Contact prescribing physician if questions or concerns APAP/butalbital/caffeine (APAP/butalbital/caffeine 325 mg-50 mg-40 mg Tab) Misc Prescription (Misc DME Prescription) Misc Prescription (Misc DME Prescription) albuterol (Albuterol (Eqv-ProAir HFA) 90 mcg/inh inhalation aerosol) amlodipine (amLODIPine 5 mg Tab) aspirin (Aspir 81) clopidogrel (Plavix 75 mg Tab) dorzolamide ophthalmic (dorzolamide ophthalmic 2% solution) fluticasone nasal (Flonase 0.05 mg/inh Clark) furosemide (furosemide 20 mg Tab) gabapentin (gabapentin 600 mg Tab) irbesartan (irbesartan 300 mg Tab) isosorbide mononitrate latanoprost ophthalmic loperamide (loperamide 2 mg Tab) metformin (metformin 500 mg ER Tab) multivitamin with minerals (Multivitamin, Therapeutic w/ Minerals) omega-3 polyunsaturated fatty acids ([place]-3 Fish Oil) omeprazole (omeprazole 40 mg Cap-DR) polyethylene glycol 3350 with electrolytes (Plenvu oral powder for reconstitution) psyllium (Metamucil) rosuvastatin (rosuvastatin 10 mg Tab) sotalol (sotalol 80 mg Tab) sucralfate (sucralfate 1 g Tab) tizanidine (tiZANidine 4 mg Tab) zonisamide (zonisamide 25 mg Cap) Procedures Performed Esophagogastroduodenoscopy (05/20/2020), Angioplasty, Cardiac pacemaker procedure, Cataract, Cholecystectomy, Colonoscopy, Hernia repair, Prostate excision, Tonsillectomy, Vasectomy. Discharge Vitals Temperature (Temporal Artery) 36.2 ?C Heart Rate (Peripheral) 63 Blood Pressure 117/72 Height 163 cm Height 64 in Weight 77.3 kg Weight 170.06 lb BMI 29.09 What to do next Scheduled Follow-Up Appointments Wednesday 1:40 PM EST With: Anjali Ruby CNP Where: [facility] Invalid Interpretation Code [address] [place] [address]- \. br\ Wednesday 1:00 PM EDT \.br\ With:\.br\ Where: [facility] Auto Diffon 03-10-2023 Basophils/100 WBC (Bld) 0.4 % Normal 0.0-2.0 [facility] Comment on above: Order Comment: Order Added by Discern Expert. Performed By: #### 2 003076, 0600992, 7529638, 28606406 #### [facility] [address] [place] [address] Basophils/Leukocyte s Auto (Bld) [Pure # fraction] 0.0 E9/L Normal 0.0-0.2 [facility] Comment on above: Order Comment: Order Added by Discern Expert. Performed By: #### 2 327011, 8128705, 6984200, 75533741 #### [facility] [address] [place] [address] Eosinophils/100 WBC (Bld) 2.4 % Normal 0.0-8.0 [facility] Comment on above: Order Comment: Order Added by Discern Expert. Performed By: #### 2 884236, 0749681, 3902939, 38185156 #### [facility] [address] [place] [address] Eosinophils/Leukocy sandy Auto (Bld) [Pure # fraction] 0.2 E9/L Normal 0.0-0.5 [facility] Comment on above: Order Comment: Order Added by Discern Expert. Performed By: #### 2 382251, 3182967, 2849153, 80341796 #### [facility] [address] [place] [address] Lymphocytes/100 WBC (Bld) 21.9 % Normal 14.0-50.0 [facility] Comment on above: Order Comment: Order Added by Discern Expert. Performed By: #### 2 741172, 2379690, 5307752, 68501561 #### [facility] [address] [place] [address] Lymphocytes/Leukocy sandy Auto (Bld) [Pure # fraction] 1.8 E9/L Normal 1.0-4.0 [facility] Comment on above: Order Comment: Order Added by Discern Expert. Performed By: #### 2 384677, 9996347, 3990749, 51811388 #### [facility] [address] [place] [address] Monocytes/100 WBC (Bld) 6.9 % Normal 4.0-14.0 [facility] Comment on above: Order Comment: Order Added by Bruna Expert. Performed By: #### 2 033409, 6417711, 4271813, 40266949 #### [facility] [address] [place] [address] Monocytes/Leukocyte s Auto (Bld) [Pure # fraction] 0.6 E9/L Normal 0.2-1.0 [facility] Comment on above: Order Comment: Order Added by Discern Expert. Performed By: #### 2 296404, 5212643, 6711936, 89437969 #### [facility] [address] [place] [address] Neutrophils/100 WBC (Bld) 68.4 % Normal 36.0-75.0 [facility] Comment on above: Order Comment: Order Added by Discern Expert. Performed By: #### 2 843461, 5768258, 6786163, 99252360 #### [facility] [address] [place] [address] Neutrophils/Leukocy sandy Auto (Bld) [Pure # fraction] 5.8 E9/L Normal 2.0-7.5 [facility] Comment on above: Order Comment: Order Added by Bruna Expert. Performed By: #### 2 605216, 4883519, 0099635, 56373510 #### [facility] [address] [place] [address] CBC w/ Auto Diffon Erythrocyte distribution width (RBC) [Ratio] 13.9 % Normal 10.9-14.2 [facility] Comment on above: Performed By: #### 2 352256, 4329829, 0354053, 26069172 #### [facility] [address] [place] [address] Hematocrit (Bld) [Volume fraction] 43.6 % Normal 37.7-49.0 [facility] Comment on above: Performed By: #### 2 102587, 1809408, 0418894, 49368041 #### [facility] [address] [place] [address] Hemoglobin (Bld) [Mass/Vol] 14.5 g/dL Normal 13.5-17.5 [facility] Comment on above: Performed By: #### 2 898738, 4211916, 4185021, 73644709 #### [facility] [address] [place] [address] MCH (RBC) [Entitic mass] 30.4 pg Normal 27.0-34.0 [facility] Comment on above: Performed By: #### 2 290762, 3125772, 6293380, 45846334 #### [facility] [address] [place] [address] MCHC (RBC) [Mass/Vol] 33.2 g/dL Normal 31.4-36.0 [facility] Comment on above: Performed By: #### 2 080541, 8405926, 0767543, 04779999 #### [facility] [address] [place] [address] MCV (RBC) [Entitic vol] 91.7 fL Normal 80.0-100.0 [facility] Comment on above: Performed By: #### 2 200724, 6195382, 3137917, 37670487 #### [facility] [address] [place] [address] Platelet mean volume (Bld) [Entitic vol] 8.6 fL Normal 6.4-10.8 [facility] Comment on above: Performed By: #### 2 318602, 9456129, 6351862, 54160197 #### [facility] [address] [place] [address] Platelets (Bld) [#/Vol] 236.0 E9/L Normal 150.0-500. 0 [facility] Comment on above: Performed By: #### 2 652989, 7590764, 0273236, 79391978 #### [facility] [address] [place] [address] RBC (Bld) [#/Vol] 4.8 E12/L Normal 4.3-5.9 [facility] Comment on above: Performed By: #### 2 115657, 2255149, 9159887, 21401270 #### [facility] [address] [place] [address] WBC corrected for nucl RBC Auto (Bld) [#/Vol] 8.4 E9/L Normal 4.0-11.0 [facility] Comment on above: Performed By: #### 2 431247, 6372360, 3131009, 64081114 #### [facility] [address] [place] [address] CDiff PCRon 03-10-2023 CDiff PCR Unable to perform te st due to consistency of stool. C. Difficile testing will only be performed on diarrheal (unformed) stool unless ileus due to C. difficile is expected. Reference: Clinical Practice Guidelines for Clostridium difficile Infection in Adults, Infection and Hospital Epidemiology September 2009, Vol 31, No 5. Normal [facility] Cdiff Specimen Acceptable Unacceptable Normal [facility] Comment on above: Performed By: #### 3 [id number], 44263242, 50546885, 07721843, 95850233, [id number] ####[facility] [address] [place] [address] Order Cancelled YES Normal [facility] Comment on above: Performed By: #### 3 [id number], 64272247, 48444523, 38138685, 93775926, [id number] ####[facility] [address] [place] [address] CHEMISTRYOrdered By: SYSTEM SYSTEM on 03-10-2023 Albumin [Mass/Vol] 4.0 g/dL Normal 3.3 - 5.0 gm/dL [facility] Albumin/Globulin [Mass ratio] 1.2 {ratio} Normal 1.1 - 2.2 [facility] ALP [Catalytic activity/Vol] 65 [iU]/d Normal 21 - 98 Int._Unit/ L [facility] ALT No additional P-5'-P [Catalytic activity/Vol] 17 [iU]/d Normal 6 - 46 Int._Unit/ L [facility] Anion gap [Moles/Vol] 10 mmol/L Normal 6 - 16 mEq/L [facility] AST [Catalytic activity/Vol] 16 [iU]/d Normal 5 - 43 Int._Unit/ L [facility] Bilirubin [Mass/Vol] 0.4 mg/dL Normal 0.0 - 1.1 mg/dL [facility] Calcium [Mass/Vol] 9.2 mg/dL Normal 8.9 - 11. 1 mg/dL [facility] Chloride [Moles/Vol] 108 mmol/L Normal 101 - 111 mmol/L [facility] CO2 [Moles/Vol] 25 mmol/L Normal 21 - 31 mmol/L [facility] Creatinine [Mass/Vol] 1.1 mg/dL Normal 0.5 - 1.3 mg/dL [facility] GFR/1.73 sq M.predicted among non-blacks MDRD (S/P/Bld) [Vol rate/Area] 67 mL/min/1.73 m2 Normal >=59mL/min /1.73 m2 [facility] Comment on above: Interpretive Data: C hronic kidney disease could be indicated at eGFR's of less than 60 mL/min/1.73m2. Kidney failure is indicated at less than 15 mL/min/1.73m2. Globulin (S) [Mass/Vol] 3.3 g/dL Normal 1.4 - 4.0 gm/dL [facility] Glucose [Mass/Vol] 136 mg/dL Normal 55 - 199 mg/dL [facility] Comment on above: Interpretive Data: I f this glucose result represents a fasting glucose, interpretation should refer to the following reference range: 55-99 mg/dL Potassium [Moles/Vol] 3.9 mmol/L Normal 3.5 - 5.3 mmol/L [facility] Protein [Mass/Vol] 7.3 g/dL Normal 6.0 - 7.8 gm/dL [facility] Sodium [Moles/Vol] 139 mmol/L Normal 135 - 145 mmol/L [facility] Urea nitrogen [Mass/Vol] 20 mg/dL Normal 5 - 21 mg/dL [facility] Urea nitrogen/Creatinine [Mass ratio] 18 mg/mg Normal - [facility] CMPon 03-10-2023 Albumin [Mass/Vol] 4.0 g/dL Normal 3.3-5.0 [facility] Comment on above: Performed By: #### 2 451211, 5626664, 8775078, 27554332 ####[facility] [address] [place] [address] Albumin/Globulin (S) [Mass conc ratio] 1.2 Normal 1.1-2.2 [facility] Comment on above: Performed By: #### 2 644742, 0803486, 2945236, 06927963 ####[facility] [address] [place] [address] ALP [Catalytic activity/Vol] 65 Int._Unit/L Normal 21-98 [facility] Comment on above: Performed By: #### 2 186171, 6731601, 3325557, 33212879 ####[facility] [address] [place] [address] ALT No additional P-5'-P [Catalytic activity/Vol] 17 Int._Unit/L Normal 6-46 [facility] Comment on above: Performed By: #### 2 468323, 4260644, 5436200, 11871142 ####[facility] [address] [place] [address] Anion gap [Moles/Vol] 10 mmol/L Normal 6-16 [facility] Comment on above: Performed By: #### 2 335876, 6089021, 7871356, 42310375 ####[facility] [address] [place] [address] AST [Catalytic activity/Vol] 16 Int._Unit/L Normal 5-43 [facility] Comment on above: Performed By: #### 2 076104, 9404060, 5892241, 05738262 ####[facility] [address] [place] [address] Bilirubin [Mass/Vol] 0.4 mg/dL Normal 0.0-1.1 [facility] Comment on above: Performed By: #### 2 356434, 5513292, 1008466, 29145141 ####[facility] [address] [place] [address] Calcium [Mass/Vol] 9.2 mg/dL Normal 8.9-11.1 [facility] Comment on above: Performed By: #### 2 418036, 9421356, 9579057, 81126855 ####[facility] [address] [place] [address] Chloride [Moles/Vol] 108 mmol/L Normal 101-111 [facility] Comment on above: Performed By: #### 2 428597, 0322611, 0301418, 01172052 ####[facility] [address] [place] [address] CO2 [Moles/Vol] 25 mmol/L Normal 21-31 [facility] Comment on above: Performed By: #### 2 047900, 7412931, 7759623, 62923345 ####[facility] [address] [place] [address] Creatinine [Mass/Vol] 1.1 mg/dL Normal 0.5-1.3 [facility] Comment on above: Performed By: #### 2 610118, 0190142, 4938086, 23415509 ####[facility] [address] [place] [address] Globulin (S) [Mass/Vol] 3.3 g/dL Normal 1.4-4.0 [facility] Comment on above: Performed By: #### 2 728623, 5675783, 9108182, 81571608 ####[facility] [address] [place] [address] Glucose [Mass/Vol] 136 mg/dL Normal 55-199 [facility] Comment on above: Result Comment: If t his glucose result represents a fasting glucose, interpretation should refer to the following reference range: 55-99 mg/dL Performed By: #### 2 512775, 0196659, 3208588, 43984268 ####[facility] [address] [place] [address] Potassium [Moles/Vol] 3.9 mmol/L Normal 3.5-5.3 [facility] Comment on above: Performed By: #### 2 559605, 5306733, 9979035, 13165302 ####[facility] [address] [place] [address] Protein [Mass/Vol] 7.3 g/dL Normal 6.0-7.8 [facility] Comment on above: Performed By: #### 2 048899, 0537993, 2462386, 03920469 ####[facility] [address] [place] [address] Sodium [Moles/Vol] 139 mmol/L Normal 135-145 [facility] Comment on above: Performed By: #### 2 007833, 7767082, 7474026, 76309257 ####[facility] [address] [place] [address] Urea nitrogen [Mass/Vol] 20 mg/dL Normal 5-21 [facility] Comment on above: Performed By: #### 2 573737, 4201504, 1887046, 11303502 ####[facility] [address] [place] [address] Urea nitrogen/Creatinine [Mass ratio] 18 No Units Normal 03-05 [facility] Comment on above: Performed By: #### 2 337839, 2851281, 3236232, 54266872 ####[facility] [address] [place] [address] Consent for Treatmenton 02-15 Consent for Treatment [id number]#1.00TIFF Normal [facility] Enteric Panel by PCRon 03-10 C. coli+jejuni+upsalie nsis DNA MICHELLE+non-probe Ql (Stl) Not detected Normal [facility] Comment on above: Result Comment: Test ing was performed utilizing reverse collection card clerk (RT), polymerase chain reaction (PCR), and array [...] nulcleic acid test. Performed By: #### 3 [id number], 22945805, 12384101, 55450521, 65944879, 2802464030 ####[facility] [address] [place] [address] E. coli stx1+stx2 genes MICHELLE+non-probe Ql (Stl) Negative Normal [facility] Comment on above: Performed By: #### 3 292511544, 74017711, 93050797, 38728990, 26427626, 7836643802 ####[facility] [address] [place] [address] Enteric Panel by PCR Negative Normal [facility] Enteric Panel Intrl QC Pass Normal [facility] Comment on above: Result Comment: Test ing was performed utilizing reverse collection card clerk (RT), polymerase chain reaction (PCR), and array [...] 1 and 2. Performed By: #### 3 [id number], 55749309, 41700734, 94422800, 36149665, [id number] ####[facility] [address] [place] [address] Norovirus genogroup I+II RNA MICHELLE+non-probe Ql (Stl) Not detected Normal [facility] Comment on above: Performed By: #### 3 426371988, 39108599, 14187224, 88568293, 53816323, 9649882608 ####[facility] [address] [place] [address] Rotavirus A RNA MICHELLE+non-probe Ql (Stl) Not detected Normal [facility] Comment on above: Performed By: #### 3 080539805, 99890631, 48836897, 47666826, 14235856, 3454462781 ####[facility] [address] [place] [address] S. enterica+bongori DNA MICHELLE+non-probe Ql (Stl) Not detected Normal [facility] Comment on above: Result Comment: This test result should be correlated with clinical presentations and medical history by a healthcare provider to determine its clinical significance. Performed By: #### 3 259346813, 46933163, 95453361, 80165724, 96860010, 8580797376 ####[facility] [address] [place] [address] Shigella species+EIEC invasion plasmid antigen H ipaH gene MICHELLE+non-probe Ql (Stl) Not detected Normal [facility] Comment on above: Performed By: #### 3 023922897, 15122966, 92880880, 08933299, 44913706, 5147938408 ####[facility] [address] [place] [address]557 V. cholerae+parahaemol yticus+vulnificus DNA MICHELLE+non-probe Ql (Stl) Not detected Normal [facility] Comment on above: Performed By: #### 3 352712471, 37420894, 48538038, 48909098, 26388898, 1780880269 ####[facility] [address] [place] [address] Y. enterocolitica DNA MICHELLE+non-probe Ql (Stl) Not detected Normal [facility] Comment on above: Performed By: #### 3 [id number], [id number], [id number], [id number] ####[facility] [id number] [place] [id number] Fecal WBC Lactoferrinon 02-15 Fecal WBC Lactoferrin Negative Normal Negative [facility] Comment on above: Result Comment: The semi-quantitative detection of elevated levels of fecal lactoferrin is a marker for fecal leukocytes and an indication of intestinal inflammation. Performed By: #### 3 [id number], [id number], [id number], [id number] ####[facility] [id number] [place] [id number] Gastroenterology Office/Clin ic Noteon 03-10-2023 Gastroenterology Office/Clinic [...] Patient reported during most recent visit with de 02/25/2023 that he was having RUQ pain described as sharp/achy 3-4 times a week that was worse with coughing or sneezing. He reported acid reflux was well controlled with omeprazole 40 mg daily. Patient was referred to [facility] regarding pancreatic cyst. Had discussed repeating EGD [...] Patient brought outside records from outside facility: [facility] 03/31/2020 CT A/P revealed prominent amount of fluid in colon suggesting diarrhea, diverticulosis, Patient had previous ultrasound of RUQ 09/2019 at outside facility revealed 0.7cm pancreatic cyst and cholelithiasis. Patient reports hx. cholecystectomy in 2019. Previous labs at outside facility [id number] revealed normal BUN, normal creatinine, normal LFTs, normal H&H. Outside record from [facility] from 04/01/2020 indicated patient had RUQ [...] start fiber supplementation daily. 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 I recommended for patient to be referred to [facility] for further evaluation regarding and patient was [...] well nourished, in no acute distress Head: Normocephalic/atraumatic Lungs: Normal respiratory effort and clear to [...] Worse aft (more content not included)... Normal [facility] Comment on above: Result Comment: Elec tronically Signed By: Flori GARZA, Anjali Omalley\.marco a\Date and Time Signed: 03/10/23 09:20 EDT HEMATOLOGYOrdered By: SYSTEM SYSTEM on 03-10-2023 Basophils/100 WBC (Bld) 0.4 % Normal 0.0 - 2.0 % [facility] HemeAutoSS Basophils/Leukocyte s Auto (Bld) [Pure # fraction] 0.0 E9/L Normal 0.0 - 0.2 E9/L [facility] HemeAutoSS Eosinophils/100 WBC (Bld) 2.4 % Normal 0.0 - 8.0 % [facility] HemeAutoSS Eosinophils/Leukocy sandy Auto (Bld) [Pure # fraction] 0.2 E9/L Normal 0.0 - 0.5 E9/L [facility] HemeAutoSS Lymphocytes/100 WBC (Bld) 21.9 % Normal 14.0 - 50.0 % [facility] HemeAutoSS Lymphocytes/Leukocy sandy Auto (Bld) [Pure # fraction] 1.8 E9/L Normal 1.0 - 4.0 E9/L [facility] HemeAutoSS Monocytes/100 WBC (Bld) 6.9 % Normal 4.0 - 14.0 % [facility] HemeAutoSS Monocytes/Leukocyte s Auto (Bld) [Pure # fraction] 0.6 E9/L Normal 0.2 - 1.0 E9/L [facility]eAutoSS Neutrophils/100 WBC (Bld) 68.4 % Normal 36.0 - 75.0 % [facility] HemeAutoSS Neutrophils/Leukocy sandy Auto (Bld) [Pure # fraction] 5.8 E9/L [...] 4.8 E12/L Normal 4.3 - 5.9 E12/L [facility] HemeAutoSS WBC corrected for nucl RBC Auto (Bld) [#/Vol] 8.4 E9/L Normal 4.0 - 11.0 E9/L [facility] HemeAutoSS MICRO OTHER TESTSOrdered By: Elba Felipe on 03-10-2023 Fecal WBC Lactoferrin Negative 3 (03/10/23 12:45 PM) Normal Negative [facility] Comment on above: Interpretive Data: [...] these instructions at home: Medicines ? Take aafc-dkv-zqnjqtb and prescription medicines only as told by [...] your condition for any changes. ? Take nbdc-imp-shvsniw and prescription medicines only as told by [...] provider. Document Revised: 06/21/2020 Document Reviewed: 09/11/2019 [employer] Patient Education ? 2022 [employer] Normal [facility] eGFRon 03-10-2023 GFR/1.73 sq M.predicted among non-blacks MDRD (S/P/Bld) [Vol rate/Area] 67 mL/min/1.73 m2 Normal >=59 [facility] Comment on above: Order Comment: Order added by Discern Expert. Result Comment: Gold Buyer sergo kidney disease could be indicated at eGFR's of less than 60 mL/min/1.73m2. Kidney failure is indicated at less than 15 mL/min/1.73m2. Performed By: #### 2 [id number] ####[facility] [id number] [place] [address] Physician Referralon 023 Physician Referral [id number] Normal [facility] Ambulatory Visit Summaryon 1 Ambulatory Visit Summary JEREMIE BENNETT :1940 Visit Date:02/25/2023 Ambulatory Visit Instructions Your Diagnosis Pancreatic cyst RUQ pain Chronic GERD Irregular bowel habits Dysphagia Screen for colon cancer Your Care Team Attending Physician - Anjali Ruby CNP Primary Care Physician - Sabino Cooper MD. This Is Your Medications List Contact prescribing physician if questions or concerns APAP/butalbital/caffeine (APAP/butalbital/caffeine 325 mg-50 mg-40 mg Tab) Misc Prescription (Misc DME Prescription) Misc Prescription (Misc DME Prescription) albuterol (Albuterol (Eqv-ProAir HFA) 90 mcg/inh inhalation aerosol) amlodipine (amLODIPine 5 mg Tab) aspirin (Aspir 81) clopidogrel (Plavix 75 mg Tab) dorzolamide ophthalmic (dorzolamide ophthalmic 2% solution) fluticasone nasal (Flonase 0.05 mg/inh [place]) furosemide (furosemide 20 mg Tab) gabapentin (gabapentin 600 mg Tab) irbesartan (irbesartan 300 mg Tab) isosorbide mononitrate latanoprost ophthalmic loperamide (loperamide 2 mg Tab) metformin (metformin 500 mg ER Tab) multivitamin with minerals (Multivitamin, Therapeutic w/ Minerals) omega-3 polyunsaturated fatty acids ([place]-3 Fish Oil) omeprazole (omeprazole 40 mg Cap-DR) polyethylene glycol 3350 with electrolytes (Plenvu oral powder for reconstitution) rosuvastatin (rosuvastatin 10 mg Tab) sotalol (sotalol 80 mg Tab) sucralfate (sucralfate 1 g Tab) tizanidine (tiZANidine 4 mg Tab) zonisamide (zonisamide 25 mg Cap) Procedures Performed Esophagogastroduodenoscopy (05/20/2020), Angioplasty, Cardiac pacemaker procedure, Cataract, Cholecystectomy, Colonoscopy, Hernia repair, Prostate excision, Tonsillectomy, Vasectomy. Discharge Vitals Temperature (Temporal Artery) 36.7 ?C Heart Rate (Peripheral) 85 Respiratory Rate 16 Blood Pressure 122/75 Height 163 cm Height 64 in Weight 78.8 kg Weight 173.36 lb BMI 29.66 What to do next Scheduled Follow-Up Appointments Wednesday 1:40 PM EST With: Anjali Ruby CNP Where: [facility] Invalid Interpretation Code [address] [place] [address]- \. br\ Wednesday 1:00 PM EDT \.br\ With:\.br\ Where: [facility] Gastroenterology Office/Clin ic Noteon 02-25-2023 Gastroenterology [...] Patient brought outside records from outside facility: [facility] 03/31/2020 CT A/P revealed prominent amount of fluid in colon suggesting diarrhea, diverticulosis, Patient had previous ultrasound of RUQ 09/2019 at outside facility revealed 0.7cm pancreatic cyst and cholelithiasis. Patient reports hx. cholecystectomy in 2019. Outside record from [facility] from 04/01/2020 indicated patient had RUQ [...] start fiber supplementation daily. 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 I recommended for patient to be referred to [facility] for further evaluation regarding. Patient is here [...] well nourished, in no acute distress Head: Normocephalic/atraumatic Lungs: Normal respiratory effort and clear to [...] MRCP in 2 years. 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 I recommended for patient to be referred to [facility] for further evaluation regarding. Family history of GI cancer? paternal grandfather with stomach cancer, cousin with p (more content not included)... Normal [facility] Comment on above: Result Comment: Elec tronically [...] these instructions at home: Medicines ? Take ragi-fdm-cdkehbs and prescription medicines only as told by your health care provider. ? If you were prescribed an antibiotic medicine, take it as told by your health care provider. Do not stop taking the antibiotic even if you start to feel better. Eating and drinking ? Make any diet changes as told by your health care provider. ? Work with a diet and mass spectrometry specialist (dietitian) to create an eating plan [...] person's throa (more content not included)... 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 02/16/23 1222 Dictated By: Mario Urias Jr, DO 02/16/23 1220 Signed By: 02/16/23 1222 [facility] Family Medicine Office/Clini c Noteon 02-15-2023 [...] no injury in last year [id number] Orders: amoxicillin-clavulanate, 1 tab(s), Oral, q12hr for 7 day(s), 14 tab(s), Refill(s) 0, [id number], 163, cm, 02/15/23 11:50:00 EDT, Height/Length Dosing, [...] media Rig (more content not included)... Normal [facility] Comment on above: Result Comment: Elec tronically Signed By: Yajaira Dunn\.br\Date and Time Signed: 02/15/23 14:43 EDT Medication Consenton 023 Medication Consent [id number] Normal [facility] CHEMISTRYOrdered By: Yash Shah on 11-23-2022 Albumin DL <= 20 mg/L (U) [Mass/Vol] microgram/mL Normal 0.0 - 19.0 mcg/mL [facility] Remisol Albumin Elph (U) [Mass fraction] mg/dL Invalid Interpretation Code [facility] Remisol Creatinine (U) [Mass/Vol] 15.9 mg/dL Invalid Interpretation Code [facility] Chem S U Prot/Creat Ratio [facility] Invalid Interpretation Code 0.00 - 200.00 [facility] Chem S Comment on above: Result Comment: Unab le to calculate due to Protein being less than analyzer reportable range. CBC AUTO DIFFon 09-29-2022 BASO # 0.1 103/ul Normal 0.0-0.1 [facility] Comment on above: Performed By: #### C BC #### [facility] [address] [address] [address] Ramsey Sanchez Basophils/100 WBC (Bld) 0.7 % Normal 0.2-2.0 [facility] Comment on above: Performed By: #### C BC #### [facility] [address] [address] [address] Ramsey Sanchez EO # 0.2 103/ul Normal 0.0-0.7 [facility] Comment on above: Performed By: #### C BC #### [facility] [address] [address] [address] Ramsey Sanchez Eosinophils/100 WBC (Bld) 1.5 % Normal 0.9-7.0 [facility] Comment on above: Performed By: #### C BC #### [facility] [address] [address] [address] Ramsey Sanchez Erythrocyte distribution width (RBC) [Ratio] 13.6 % Normal 11.0-15.0 [facility] Comment on above: Performed By: #### C BC #### [facility] [address] [address] [address] Ramsey Sanchez Hematocrit (Bld) [Volume fraction] 43.5 % Normal 42.0-54.0 [facility] Comment on above: Performed By: #### C BC #### [facility] [address] [place] [address] Dr. Ramsey Sanchez Hemoglobin (Bld) [Mass/Vol] 13.9 g/dL Critically low 14.0-18.0 [facility] Comment on above: Performed By: #### C BC #### [facility] [address] [address] [address] Ramsey Sanchez IG # 0.29 10e3/ul Critically high 0.00-0.03 [facility] Comment on above: Performed By: #### C BC #### [facility] [address] [address] [address] Ramsey Sanchez IG % 2.9 % Critically high 0.0-0.5 [facility] Comment on above: Performed By: #### C BC #### [facility] [address] [address] [address] Ramsey Sanchez LYMPH # 2.1 103/ul Normal 1.2-3.8 [facility] Comment on above: Performed By: #### C BC #### [facility] [address] [place] [address] Dr. Ramsey Sanchez Lymphocytes/100 WBC (Bld) 20.8 % Normal 20.5-60.0 [facility] Comment on above: Performed By: #### C BC #### [facility] [address] [place] [address] Dr. Ramsey Sanchez MANUAL DIFF REQ NO Normal [facility] Comment on above: Performed By: #### C BC #### [facility] [address] [place] [address] Dr. Ramsey Sanchez MCH (RBC) [Entitic mass] 29.6 pg Normal 25.9-34.0 [facility] Comment on above: Performed By: #### C BC #### [facility] [address] [place] [address] Dr. Ramsey Sanchez MCHC (RBC) [Mass/Vol] 32.0 g/dL Normal 29.9-35.2 [facility] Comment on above: Performed By: #### C BC #### [facility] [address] [place] [address] Dr. Ramsey Sanchez MCV (RBC) [Entitic vol] 92.6 fL Normal 80.0-94.0 [facility] Comment on above: Performed By: #### C BC #### [facility] [address] [place] [address] Dr. Ramsey Sanchez MONO # 0.8 103/ul Normal 0.3-0.8 [facility] Comment on above: Performed By: #### C BC #### [facility] [address] [place] [address] Dr. Ramsey Sanchez Monocytes/100 WBC (Bld) 8.3 % Normal 1.7-12.0 [facility] Comment on above: Performed By: #### C BC #### [facility] [address] [place] [address] Dr. Ramsey Sanchez NEUT # 6.5 103/ul Normal 1.4-6.5 [facility] Comment on above: Performed By: #### C BC #### [facility] [address] [place] [address] Dr. Ramsey Sanchez Neutrophils/100 WBC (Bld) 65.8 % Normal 43.0-75.0 [facility] Comment on above: Performed By: #### C BC #### [facility] [address] [place] [address] Dr. Ramsey Sanchez Platelet mean volume (Bld) [Entitic vol] 11.1 fL Normal 9.5-13.5 [facility] Comment on above: Performed By: #### C BC #### [facility] [address] [place] [address] Dr. Ramsey Sanchez PLT 198 103/ul Normal 150-450 [facility] Comment on above: Performed By: #### C BC #### [facility] [address] [place] [address] Dr. Ramsey Sanchez RBC 4.70 106/ul Normal 4.70-6.10 [facility] Comment on above: Performed By: #### C BC #### [facility] [address] [place] [address] Dr. Ramsey Sanchez WBC 9.9 103/ul Normal 4.0-11.0 [facility] Comment on above: Performed By: #### C BC #### [facility] [address] [place] [address] Dr. Ramsey Sanchez ER URINE PROFILEon 3 Bilirubin Ql (U) Negative Normal NEGATIVE [facility] Comment on above: Performed By: #### E RUR #### [facility] [address] [place] [address] Dr. Ramsey Sanchez Clarity (U) CLEAR Normal CLEAR [facility] Comment on above: Performed By: #### E RUR #### [facility] [address] [place] [address] Dr. Ramsey Sanchez Color (U) YELLOW Normal YELLOW [facility] Comment on above: Performed By: #### E RUR #### [facility] [address] [place] [address] Dr. Ramsey Sanchez ERUAHJose G A micrscopic examina tion will be performed if indicated. Normal [facility] Comment on above: Performed By: #### E RUR #### [facility] [address] [place] [address] Dr. Ramsey Sanchez Glucose Ql (U) Negative Normal NEGATIVE [facility] Comment on above: Performed By: #### E RUR #### [facility] [address] [place] [address] Dr. Ramsey Sanchez Hemoglobin Ql (U) Negative Normal NEGATIVE [facility] Comment on above: Performed By: #### E RUR #### [facility] [address] [place] [address] Dr. Ramsey Sanchez Ketones Ql (U) Negative Normal NEGATIVE [facility] Comment on above: Performed By: #### E RUR #### [facility] [address] [place] [address] Dr. Ramsey Sanchez LEUKOCYTES Negative Normal NEGATIVE [facility] Comment on above: Performed By: #### E RUR #### [facility] [address] [place] [address] Dr. Ramsey Sanchez Nitrite Ql (U) Negative Normal NEGATIVE [facility] Comment on above: Performed By: #### E RUR #### [facility] [address] [place] [address] Dr. Ramsey Sanchez pH (U) 5.5 [pH] Normal 5-9 [facility] Comment on above: Performed By: #### E RUR #### [facility] [address] [place] [address] Dr. Ramsey Sanchez SPEC GRAVITY 1.020 Normal 1.005-<=1. 025 [facility] Comment on above: Performed By: #### E RUR #### [facility] [address] [place] [address] Dr. Ramsey Sanchez UA PROTEIN Negative Normal NEGATIVE/ TRACE [facility] Comment on above: Performed By: #### E RUR #### [facility] [address] [place] [address] Dr. Ramsey Sanchez UR MICRO IND NOT INDICATED Normal [facility] Comment on above: Performed By: #### E RUR #### [facility] [address] [place] [address] Dr. Ramsey Sanchez Urobilinogen Qn (U) 0.2 {Leatha'U}/dL Normal 0.2 - 1. 0 [facility] Comment on above: Performed By: #### E RUR #### [facility] [address] [place] [address] Dr. Ramsey Sanchez LACTATE/LACTIC ACIDon 2022 Lactate [Moles/Vol] 1.7 mmol/L Normal 0.4-2.0 [facility] Comment on above: Performed By: #### L ACT #### [facility] [address] [place] [address] Dr. Ramsey Sanchez PROF 14(COMP METB)on 023 Albumin [Mass/Vol] 3.1 g/dL Critically low 3.4-5.0 [facility] Comment on above: Performed By: #### C LISANDRO HSTROPN #### [facility] [address] [place] [address] Dr. Ramsey Sanchez Albumin/Globulin [Mass ratio] 0.8 {ratio} Normal [facility] Comment on above: Performed By: #### C LISANDRO, HSTROPN #### [facility] [address] [place] [address] Dr. Ramsey Sanchez ALP [Catalytic activity/Vol] 73 U/L Normal 46-116 [facility] Comment on above: Performed By: #### C MP, HSTROPN #### [facility] [address] [place] [address] Dr. Ramsey Sanchez ALT [Catalytic activity/Vol] 22 U/L Normal 16-63 [facility] Comment on above: Performed By: #### C LISANDRO, HSTROPN #### [facility] [address] [place] [address] Dr. Ramsey Sanchez Anion gap [Moles/Vol] 13.5 mmol/L Normal [facility] Comment on above: Performed By: #### C LISANDRO, HSTROPN #### [facility] [address] [place] [address] Dr. Ramsey Sanchez AST [Catalytic activity/Vol] 26 U/L Normal 15-37 [facility] Comment on above: Performed By: #### C MP, HSTROPN #### [facility] [address] [place] [address] Dr. Ramsey Sanchez Bilirubin [Mass/Vol] 0.4 mg/dL Normal 0.2-1.0 [facility] Comment on above: Performed By: #### C LISANDRO, HSTROPN #### [facility] [address] [place] [address] Dr. Ramsey Sanchez Calcium [Mass/Vol] 8.4 mg/dL Critically low 8.5-10.1 [facility] Comment on above: Performed By: #### C LISANDRO, HSTROPN #### [facility] [address] [place] [address] Dr. Ramsey Sanchez Chloride [Moles/Vol] 107 mmol/L Normal 98-107 [facility] Comment on above: Performed By: #### C LISANDRO, HSTROPN #### [facility] [address] [place] [address] Dr. Ramsey Sanchez CO2 [Moles/Vol] 26.1 mmol/L Normal 21.0-32.0 [facility] Comment on above: Performed By: #### C LISANDRO, HSTROPN #### [facility] [address] [place] [address] Dr. Ramsey Sanchez Creatinine [Mass/Vol] 0.94 mg/dL Normal 0.70-1.30 [facility] Comment on above: Performed By: #### C LISANDRO, HSTROPN #### [facility] [address] [place] [address] Dr. Ramsey Sanchez EGFR-AF JAPANESE >60 Normal >=60 [facility] Comment on above: Performed By: #### C LISANDRO, HSTROPN #### [facility] [address] [address] [address] Ramsey Sanchez EGFR-NON AF JAPANESE >60 Normal >=60 [facility] Comment on above: Performed By: #### C MP, HSTROPN #### [facility] [address] [address] [address] Ramsey Sanchez Globulin (S) [Mass/Vol] 3.7 g/dL Normal [facility] Comment on above: Performed By: #### C MP, HSTROPN #### [facility] [address] [place] [address] Dr. Ramsey Sanchez Glucose [Mass/Vol] 118 mg/dL Critically high 74-106 [facility] Comment on above: Performed By: #### C MP, HSTROPN #### [facility] [address] [place] [address] Dr. Ramsey Sanchez Potassium [Moles/Vol] 3.6 mmol/L Normal 3.5-5.1 [facility] Comment on above: Performed By: #### C MP, HSTROPN #### [facility] [address] [place] [address] Dr. Ramsey Sanchez Protein [Mass/Vol] 6.8 g/dL Normal 6.4-8.2 [facility] Comment on above: Performed By: #### C MP, HSTROPN #### [facility] [address] [place] [address] Dr. Ramsey Sanchez Sodium [Moles/Vol] 143 mmol/L Normal 136-145 [facility] Comment on above: Performed By: #### C MP, HSTROPN #### [facility] [address] [place] [address] Dr. Ramsey Sanchez Urea nitrogen [Mass/Vol] 19.0 mg/dL Critically high 7.0-18.0 [facility] Comment on above: Performed By: #### C MP, HSTROPN #### [facility] [address] [address] [address] Ramsey Sanchez Urea nitrogen/Creatinine [Mass ratio] 20.2 mg/mg Normal [facility] Comment on above: Performed By: #### C MP, HSTROPN #### [facility] [address] [address] [address] Ramsey Sanchez TROPONIN, HIGH SENSITIVITYon 09-29-2022 HSTROP 9.8 pg/mL Normal 4.0-76.1 [facility] Comment on above: Result Comment: CUT- OFF POINTS HAVE BEEN ESTABLISHED BASED ON THE FOURTH UNIVERSAL DEFINITIONS OF MYOCARDIAL INFARCTION. THE UPPER REFERENCE LIMIT (URL) OF TROPONIN, DEFINED THE 99TH PERCENTILE OF cTnI DISTRIBUTION IN A REFERENCE POPULATION, HAS BEEN CONFIRMED THE DECISION THRESHOLD FOR ME DIAGNOSIS. Performed By: #### C MP, HSTROPN #### [facility] [address] [address] [address] Ramsey Sanchez XR CHEST 1 Von [...] hardware and overlying objects out of the ladct-qs-ixdm. Electronically authenticated by: ALANNA CARLOS Date: 2022-09-29 16:37 Normal [facility] BNPon 09-25-2022 Natriuretic peptide B (Bld) [Mass/Vol] 720.0 pg/mL Normal <=1,800.0 [facility] Comment on above: Performed By: #### C XSTOOL #### [facility] [address] [address] [address] Ramsey Sanchez CARDIAC RAFI ADMITon 023 CK [Catalytic activity/Vol] 198 U/L Normal 39-308 [facility] Comment on above: Performed By: #### C XSTOOL #### [facility] [address] [address] [address] Ramsey Sanchez CK.MB [Mass/Vol] 2.62 ng/mL Normal <=3.60 [facility] Comment on above: Performed By: #### C XSTOOL #### [facility] [address] [place] [address] Dr. Ramsey Sanchez HSTROP 8.8 pg/mL Normal 4.0-76.1 [facility] Comment on above: Result Comment: CUT- OFF POINTS HAVE BEEN ESTABLISHED BASED ON THE FOURTH UNIVERSAL DEFINITIONS OF MYOCARDIAL INFARCTION. THE UPPER REFERENCE LIMIT (URL) OF TROPONIN, DEFINED THE 99TH PERCENTILE OF cTnI DISTRIBUTION IN A REFERENCE POPULATION, HAS BEEN CONFIRMED THE DECISION THRESHOLD FOR ME DIAGNOSIS. Performed By: #### C XSTOOL #### [facility] [address] [place] [address] Dr. Ramsey Sanchez MARILYN 69 ng/mL Normal 16-96 [facility] Comment on above: Performed By: #### C XSTOOL #### [facility] [address] [place] [address] Dr. Ramsey Sanchez CBC AUTO DIFFon 09-25-2022 BASO # 0.0 103/ul Normal 0.0-0.1 [facility] Comment on above: Performed By: #### C BC #### [facility] [address] [place] [address] Dr. Ramsey Sanchez Basophils/100 WBC (Bld) 0.2 % Normal 0.2-2.0 [facility] Comment on above: Performed By: #### C BC #### [facility] [address] [address] [address] Ramsey Sanchez EO # 0.0 103/ul Normal 0.0-0.7 [facility] Comment on above: Performed By: #### C BC #### [facility] [address] [place] [address] Dr. Ramsey Sanchez Eosinophils/100 WBC (Bld) 0.1 % Critically low 0.9-7.0 [facility] Comment on above: Performed By: #### C BC #### [facility] [address] [place] [address] Dr. Ramsey Sanchez Erythrocyte distribution width (RBC) [Ratio] 14.0 % Normal 11.0-15.0 [facility] Comment on above: Performed By: #### C BC #### [facility] [address] [place] [address] Dr. Ramsey Sanchez Hematocrit (Bld) [Volume fraction] 45.4 % Normal 42.0-54.0 [facility] Comment on above: Performed By: #### C BC #### [facility] [address] [place] [address] Dr. Ramsey Sanchez Hemoglobin (Bld) [Mass/Vol] 14.4 g/dL Normal 14.0-18.0 [facility] Comment on above: Performed By: #### C BC #### [facility] [address] [place] [address] Dr. Ramsey Sanchez IG # 0.08 10e3/ul Critically high 0.00-0.03 [facility] Comment on above: Performed By: #### C BC #### [facility] [address] [place] [address] Dr. Ramsey Sanchez IG % 0.9 % Critically high 0.0-0.5 [facility] Comment on above: Performed By: #### C BC #### [facility] [address] [place] [address] Dr. Ramsey Sanchez LYMPH # 1.6 103/ul Normal 1.2-3.8 [facility] Comment on above: Performed By: #### C BC #### [facility] [address] [place] [address] Dr. Ramsey Sanchez Lymphocytes/100 WBC (Bld) 17.9 % Critically low 20.5-60.0 [facility] Comment on above: Performed By: #### C BC #### [facility] [address] [place] [address] Dr. Ramsey Sanchez MANUAL DIFF REQ NO Normal [facility] Comment on above: Performed By: #### C BC #### [facility] [address] [address] [address] Ramsey Sanchez MCH (RBC) [Entitic mass] 29.8 pg Normal 25.9-34.0 [facility] Comment on above: Performed By: #### C BC #### [facility] [address] [place] [address] Dr. Ramsey Sanchez MCHC (RBC) [Mass/Vol] 31.7 g/dL Normal 29.9-35.2 [facility] Comment on above: Performed By: #### C BC #### [facility] [address] [place] [address] Dr. Ramsey Sanchez MCV (RBC) [Entitic vol] 94.0 fL Normal 80.0-94.0 [facility] Comment on above: Performed By: #### C BC #### [facility] [address] [place] [address] Dr. Ramsey Sanchez MONO # 0.9 103/ul Critically high 0.3-0.8 [facility] Comment on above: Performed By: #### C BC #### [facility] [address] [place] [address] Dr. Ramsey Sanchez Monocytes/100 WBC (Bld) 9.6 % Normal 1.7-12.0 [facility] Comment on above: Performed By: #### C BC #### [facility] [address] [place] [address] Dr. Ramsey Sanchez NEUT # 6.3 103/ul Normal 1.4-6.5 [facility] Comment on above: Performed By: #### C BC #### [facility] [address] [place] [address] Dr. Ramsey Sanchez Neutrophils/100 WBC (Bld) 71.3 % Normal 43.0-75.0 [facility] Comment on above: Performed By: #### C BC #### [facility] [address] [place] [address] Dr. Ramsey Sanchez Platelet mean volume (Bld) [Entitic vol] 11.0 fL Normal 9.5-13.5 [facility] Comment on above: Performed By: #### C BC #### [facility] [address] [address] [address] Ramsey Sanchez PLT 203 103/ul Normal 150-450 [facility] Comment on above: Performed By: #### C BC #### [facility] [address] [address] [address] Ramsey Sanchez RBC 4.83 106/ul Normal 4.70-6.10 [facility] Comment on above: Performed By: #### C BC #### [facility] [address] [place] [address] Dr. Ramsey Sanchez WBC 8.9 103/ul Normal 4.0-11.0 [facility] Comment on above: Performed By: #### C BC #### [facility] [address] [place] [address] Dr. Ramsye Sanchez LACTATE/LACTIC ACIDon 2022 Lactate [Moles/Vol] 1.0 mmol/L Normal 0.4-2.0 [facility] Comment on above: Performed By: #### C BC #### [facility] [address] [place] [address] Dr. Ramsey Sanchez PROF 14(COMP METB)on 023 Albumin [Mass/Vol] 3.7 g/dL Normal 3.4-5.0 [facility] Comment on above: Performed By: #### C XSTOOL #### [facility] [address] [place] [address] Dr. Ramsey Sanchez Albumin/Globulin [Mass ratio] 0.9 {ratio} Normal [facility] Comment on above: Performed By: #### C XSTOOL #### [facility] [address] [place] [address] Dr. Ramsey Sanchez ALP [Catalytic activity/Vol] 68 U/L Normal 46-116 [facility] Comment on above: Performed By: #### C XSTOOL #### [facility] [address] [place] [address] Dr. Ramsey Sanchez ALT [Catalytic activity/Vol] 23 U/L Normal 16-63 [facility] Comment on above: Performed By: #### C XSTOOL #### [facility] [address] [address] [address] Ramsey Sanchez Anion gap [Moles/Vol] 12.6 mmol/L Normal [facility] Comment on above: Performed By: #### C XSTOOL #### [facility] [address] [address] [address] Ramsey Sanchez AST [Catalytic activity/Vol] 21 U/L Normal 15-37 [facility] Comment on above: Performed By: #### C XSTOOL #### [facility] [address] [address] [address] Ramsey Sanchez Bilirubin [Mass/Vol] 0.3 mg/dL Normal 0.2-1.0 [facility] Comment on above: Performed By: #### C XSTOOL #### [facility] [address] [address] [address] Ramsey Sanchez Calcium [Mass/Vol] 8.8 mg/dL Normal 8.5-10.1 [facility] Comment on above: Performed By: #### C XSTOOL #### [facility] [address] [address] [address] Ramsey Sanchez Chloride [Moles/Vol] 104 mmol/L Normal 98-107 [facility] Comment on above: Performed By: #### C XSTOOL #### [facility] [address] [address] [address] Ramsey Sanchez CO2 [Moles/Vol] 26.7 mmol/L Normal 21.0-32.0 [facility] Comment on above: Performed By: #### C XSTOOL #### [facility] [address] [address] [address] Ramsey Sanchez Creatinine [Mass/Vol] 1.27 mg/dL Normal 0.70-1.30 [facility] Comment on above: Performed By: #### C XSTOOL #### [facility] [address] [address] [address] Ramsey Sanchez EGFR-AF JAPANESE >60 Normal >=60 [facility] Comment on above: Performed By: #### C XSTOOL #### [facility] [address] [address] [address] Ramsey Sanchez EGFR-NON AF JAPANESE 54 mL/min/1.73m2 Critically low >=60 [facility] Comment on above: Performed By: #### C XSTOOL #### [facility] [address] [address] [address] Ramsey Sanchze Globulin (S) [Mass/Vol] 3.9 g/dL Normal [facility] Comment on above: Performed By: #### C XSTOOL #### [facility] [address] [address] [address] Ramsey Sanchez Glucose [Mass/Vol] 114 mg/dL Critically high 74-[address] [facility] Comment on above: Performed By: #### C XSTOOL #### [facility] [address] [address] [address] Ramsey Sanchez Potassium [Moles/Vol] 4.3 mmol/L Normal 3.5-5.1 [facility] Comment on above: Performed By: #### C XSTOOL #### [facility] [address] [address] [address] Ramsey Sanchez Protein [Mass/Vol] 7.6 g/dL Normal 6.4-8.2 [facility] Comment on above: Performed By: #### C XSTOOL #### [facility] [address] [address] [address] Ramsey Sanchez Sodium [Moles/Vol] 139 mmol/L Normal 136-145 [facility] Comment on above: Performed By: #### C XSTOOL #### [facility] [address] [address] [address] Ramsey Sanchez Urea nitrogen [Mass/Vol] 19.0 mg/dL Critically high 7.0-18.0 [facility] Comment on above: Performed By: #### C XSTOOL #### [facility] [address] [address] [address] Ramsey Sanchez Urea nitrogen/Creatinine [Mass ratio] 15.0 mg/mg Normal [facility] Comment on above: Performed By: #### C XSTOOL #### [facility] [address] [address] [address] Ramsey Sanchez XR CHEST 1 Von [...] by: TRACY HIGHTOWER Date: 2022-09-24 23:29 Normal [facility] COVID + FLU Quick Testingon 09-22-2022 SARS-CoV-2 (COVID-19) RNA MICHELLE+probe Ql (Unsp spec) Positive [facility] Other COVID + FLU Quick Testing Negative Fill[facility] Other MR ankle RT wo conon 023 MR ankle RT wo con [facility] [place] [address] MRI Report Signed Patient: Jeremie Bennett MR#: [id number] 812 : 1940 Acct:[id number] Age/Sex: 81 / M ADM Date: 08/12/22 Loc: Room: Type: [facility] Attending Dr: Alanna Hardy DPM, MS Copies to: Alanna Hardy DPM, MS Ordering Provider: Alanna Hardy DPM, MS Date of Service: 08/12/22 MR/MR ankle RT wo con: M7.22, [id number] MR ankle RT wo con 08/12/2022 7:28 [...] Rafi Gordon M.D.08/12/2022 1:15 PM Dictation Location: [address] [place] [address] Transcribed By: PERLA 08/12/22 1315 Dictated By: Rafi Gordon II, MD 08/12/22 1302 Signed By: 08/12/22 1315 [facility] MR cervical spine wo conon 0 08-12-2022 MR cervical spine wo con [facility] [place] [address] MRI Report Signed Patient: Jeremie Bennett MR#: [id number] 812 : 1940 Acct:[id number] Age/Sex: 81 / M ADM Date: 08/12/22 Loc: MR Room: Type: [facility] Attending Dr: Missy Westfall PA-C Copies [...] Rafi Gordon M.D.08/12/2022 1:02 PM Dictation Location: [facility]- Transcribed By: PERLA 08/12/22 1302 Dictated By: Rafi Gordon II, MD 08/12/22 1255 Signed By: 08/12/22 1302 Normal [facility] XR pre/post mri xrayon 08-12 XR pre/post mri xray [facility] [address] [place] [address] [place] [address] XRay Report Signed Patient: Jeremie Bennett MR#: [id number] 812 : 1940 Acct:[id number] Age/Sex: 81 / M ADM Date: 08/12/22 Loc: Room: Type: [facility] Attending Dr: Alanna aHrdy DPM, MS Copies to: Alanna Hrady DPM, MS Ordering Provider: Alanna Hardy DPM, MS Date of Service: 08/12/22 XR/XR pre/post mri xray: M7.22, [id number] XR pre/post mri xray 08/12/2022 7:28 AM [...] Rafi Gordon M.D.08/12/2022 1:17 PM Dictation Location: [facility]13 Transcribed By: [facility] 08/12/22 1317 Dictated By: Rafi Gordon II, MD 08/12/22 1315 Signed By: 08/12/22 1317 [facility] POINT OF CARE GLUCOSEon 07-16 Glucose [Mass/Vol] 146 mg/dL Critically high 74-106 [facility] Comment on above: Performed By: #### C XSTOOL #### [facility] [address] [place] [address] Dr. Ramsey Sanchez US ARTERY UP EXT [...] ERWIN FALCON Date: 2022-04-16 17:21 Normal [facility] LACTOFERRIN FECAL QUANTon Lactoferrin, Fecal, Quant. 1.43 ug/mL(g) Normal 0.00-7.24 [facility] Comment on above: Result Comment: . [...] (IBS). Performed By: #### C XSTOOL #### [facility] [address] [place] [address] Dr. Ramsey Sanchez CBC AUTO DIFFon 03-10-2022 BASO # 0.1 103/ul Normal 0.0-0.1 [facility] Comment on above: Performed By: #### C BC #### [facility] [address] [place] [address] Dr. Ramsey Sanchez Basophils/100 WBC (Bld) 0.9 % Normal 0.2-2.0 [facility] Comment on above: Performed By: #### C BC #### [facility] [address] [place] [address] Dr. Ramsey Sanchez EO # 0.3 103/ul Normal 0.0-0.7 [facility] Comment on above: Performed By: #### C BC #### [facility] [address] [place] [address] Dr. Ramsey Sanchez Eosinophils/100 WBC (Bld) 2.6 % Normal 0.9-7.0 [facility] Comment on above: Performed By: #### C BC #### [facility] [address] [place] [address] Dr. Ramsey Sanchez Erythrocyte distribution width (RBC) [Ratio] 13.2 % Normal 11.0-15.0 [facility] Comment on above: Performed By: #### C BC #### [facility] [address] [place] [address] Dr. Ramsey Sanchez Hematocrit (Bld) [Volume fraction] 46.1 % Normal 42.0-54.0 [facility] Comment on above: Performed By: #### C BC #### [facility] [address] [place] [address] Dr. Ramsey Sanchez Hemoglobin (Bld) [Mass/Vol] 14.5 g/dL Normal 14.0-18.0 [facility] Comment on above: Performed By: #### C BC #### [facility] [address] [address] [address] Ramsey Sanchez IG # 0.15 10e3/ul Critically high 0.00-0.03 [facility] Comment on above: Performed By: #### C BC #### [facility] [address] [place] [address] Dr. Ramsey Sanchez IG % 1.3 % Critically high 0.0-0.5 [facility] Comment on above: Performed By: #### C BC #### [facility] [address] [place] [address] Dr. Ramsey Sanchez LYMPH # 2.7 103/ul Normal 1.2-3.8 [facility] Comment on above: Performed By: #### C BC #### [facility] [address] [place] [address] Dr. Ramsey Sanchez Lymphocytes/100 WBC (Bld) 23.0 % Normal 20.5-60.0 [facility] Comment on above: Performed By: #### C BC #### [facility] [address] [place] [address] Dr. Ramsey Sanchez MANUAL DIFF REQ NO Normal [facility] Comment on above: Performed By: #### C BC #### [facility] [address] [place] [address] Dr. Ramsey Sanchez MCH (RBC) [Entitic mass] 31.0 pg Normal 25.9-34.0 [facility] Comment on above: Performed By: #### C BC #### [facility] [address] [place] [address] Dr. Ramsey Sanchez MCHC (RBC) [Mass/Vol] 31.5 g/dL Normal 29.9-35.2 [facility] Comment on above: Performed By: #### C BC #### [facility] [address] [place] [address] Dr. Ramsey Sanchez MCV (RBC) [Entitic vol] 98.5 fL Critically high 80.0-94.0 [facility] Comment on above: Performed By: #### C BC #### [facility] [address] [address] [address] Ramsey Sanchez MONO # 0.9 103/ul Critically high 0.3-0.8 [facility] Comment on above: Performed By: #### C BC #### [facility] [address] [address] [address] Ramsey Sanchez Monocytes/100 WBC (Bld) 7.4 % Normal 1.7-12.0 [facility] Comment on above: Performed By: #### C BC #### [facility] [address] [address] [address] Ramsey Sanchez NEUT # 7.6 103/ul Critically high 1.4-6.5 [facility] Comment on above: Performed By: #### C BC #### [facility] [address] [place] [address] Dr. Ramsey Sanchez Neutrophils/100 WBC (Bld) 64.8 % Normal 43.0-75.0 [facility] Comment on above: Performed By: #### C BC #### [facility] [address] [place] [address] Dr. Ramsey Sanchez Platelet mean volume (Bld) [Entitic vol] 11.5 fL Normal 9.5-13.5 [facility] Comment on above: Performed By: #### C BC #### [facility] [address] [place] [address] Dr. Ramsey Sanchez PLT 243 103/ul Normal 150-450 [facility] Comment on above: Performed By: #### C BC #### [facility] [address] [place] [address] Dr. Ramsey Sanchez RBC 4.68 106/ul Critically low 4.70-6.10 [facility] Comment on above: Performed By: #### C BC #### [facility] [address] [place] [address] Dr. Ramsey Sanchez WBC 11.7 103/ul Critically high 4.0-11.0 [facility] Comment on above: Performed By: #### C BC #### [facility] [address] [place] [address] Dr. Ramsey Sanchez GLYCOHEMOGLOBIN A1Con 2021 ADA RECOMMENDATION SEE BELOW Normal [facility] Comment on above: Result Comment: ADA RECOMMENDED LIMIT 4.0 - 6.0 ADA THERAPEUTIC TARGET < 7.0 ACTION SUGGESTED > 7.0 Performed By: #### A 1C #### [facility] [address] [place] [address] Dr. Ramsey Sanchez Glucose [Mass/Vol] 123 mg/dL Normal [facility] Comment on above: Performed By: #### A 1C #### [facility] [address] [place] [address] Dr. Ramsey Sanchez HbA1c (Bld) [Mass fraction] 5.9 % Normal 4.5-6.2 [facility] Comment on above: Performed By: #### A 1C #### [facility] [address] [place] [address] Dr. Ramsey Sanchez LIPID PROFILEon 03-10-2022 CHOL-HDL RATIO NORM SEE BELOW Normal [facility] Comment on above: Result Comment: 3.3 - 4.4 LOW RISK 4.4 - 7.1 AVERAGE RISK 7.1 - 11.0 MODERATE RISK >11.0 HIGH RISK Performed By: #### C BC #### [facility] [address] [place] [address] Dr. Ramsey Sanchez Cholesterol [Mass/Vol] 121 mg/dL Normal <=200 [facility] Comment on above: Performed By: #### C BC #### [facility] [address] [place] [address] Dr. Ramsey Sanchez Cholesterol in HDL [Mass/Vol] 30 mg/dL Critically low 40-60 [facility] Comment on above: Performed By: #### C BC #### [facility] [address] [place] [address] Dr. Ramsey Sanchez Cholesterol in LDL [Mass/Vol] 47.6 mg/dL Normal [facility] Comment on above: Performed By: #### C BC #### [facility] [address] [place] [address] Dr. Ramsey Sanchez Cholesterol.total/C holesterol in HDL [Mass ratio] 4.0 {ratio} Normal [facility] Comment on above: Performed By: #### C BC #### [facility] [address] [place] [address] Dr. Ramsey Sanchez HDL NORMAL > or = 60 mg/dl - LO W CARDIOVASCULAR RISK <40 mg/dl - HIGH CARDIOVASCULAR RISK Normal [facility] Comment on above: Performed By: #### C BC #### [facility] [address] [place] [address] Dr. Ramsey Sanchez LDL CALC NORMAL SEE BELOW Normal [facility] Comment on above: Result Comment: <100 mg/dl OPTIMAL 100 - 129 mg/dl NEAR OR ABOVE OPTIMAL 130 - 159 mg/dl BORDERLINE HIGH 160 - 189 mg/dl HIGH >190 mg/dl VERY HIGH Performed By: #### C BC #### [facility] [address] [place] [address] Dr. Ramsey Sanchez Triglyceride [Mass/Vol] 217 mg/dL Critically high <=150 [facility] Comment on above: Performed By: #### C BC #### [facility] [address] [place] [address] Dr. Ramsey Sanchez VLDL CALC 43.4 mg/dL Normal [facility] Comment on above: Performed By: #### C BC #### [facility] [address] [place] [address] Dr. Ramsey Sanchez LIVER PROFILEon 03-10-2022 Albumin [Mass/Vol] 3.9 g/dL Normal 3.4-5.0 [facility] Comment on above: Performed By: #### C BC #### [facility] [address] [place] [address] Dr. Ramsey Sanchez Albumin/Globulin [Mass ratio] 1.1 {ratio} Normal [facility] Comment on above: Performed By: #### C BC #### [facility] [address] [place] [address] Dr. Ramsey Sanchez ALP [Catalytic activity/Vol] 75 U/L Normal 46-116 [facility] Comment on above: Performed By: #### C BC #### [facility] [address] [place] [address] Dr. Ramsey Sanchez ALT [Catalytic activity/Vol] 21 U/L Normal 16-63 [facility] Comment on above: Performed By: #### C BC #### [facility] [address] [address] [address] Ramsey Sanchez AST [Catalytic activity/Vol] 17 U/L Normal 15-37 [facility] Comment on above: Performed By: #### C BC #### [facility] [address] [address] [address] Ramsey Sanchez BILI, CONJUGATED 0.1 mg/dL Normal 0.0-0.2 [facility] Comment on above: Performed By: #### C BC #### [facility] [address] [address] [address] Ramsey Sanchez Bilirubin [Mass/Vol] 0.4 mg/dL Normal 0.2-1.0 [facility] Comment on above: Performed By: #### C BC #### [facility] [address] [address] [address] Ramsey Sanchez Globulin (S) [Mass/Vol] 3.5 g/dL Normal [facility] Comment on above: Performed By: #### C BC #### [facility] [address] [address] [address] Ramsey Sanchez Protein [Mass/Vol] 7.4 g/dL Normal 6.4-8.2 [facility] Comment on above: Performed By: #### C BC #### [facility] [address] [address] [address] Ramsey Sanchez MICROALBUMIN, RAND URon 02-15 mALB <1.3 Normal <=30.0 [facility] Comment on above: Performed By: #### M ALBR #### [facility] [address] [address] [address] Ramsey Sanchez PROF CHEM 8 (BAS METB)on Anion gap [Moles/Vol] 12.6 mmol/L Normal [facility] Comment on above: Performed By: #### C BC #### [facility] [address] [address] [address] Ramsey Sanchez Calcium [Mass/Vol] 8.9 mg/dL Normal 8.5-10.1 [facility] Comment on above: Performed By: #### C BC #### [facility] [address] [address] [address] Ramsey Sanchez Chloride [Moles/Vol] 103 mmol/L Normal 98-107 [facility] Comment on above: Performed By: #### C BC #### [facility] [address] [address] [address] Ramsey Sanchez CO2 [Moles/Vol] 28.5 mmol/L Normal 21.0-32.0 The [facility] Comment on above: Performed By: #### C BC #### [facility] [address] [place] [address] Dr. Ramsey Sanchez Creatinine [Mass/Vol] 0.89 mg/dL Normal 0.70-1.30 [facility] Comment on above: Performed By: #### C BC #### [facility] [address] [place] [address] Dr. Ramsey Sanchez EGFR-AF JAPANESE >60 Normal >=60 The [facility] Comment on above: Performed By: #### C BC #### [facility] [address] [place] [address] Dr. Ramsey Sanchez EGFR-NON AF JAPANESE >60 Normal >=60 [facility] Comment on above: Performed By: #### C BC #### [facility] [address] [address] [address] Ramsey Sanchez Glucose [Mass/Vol] 102 mg/dL Normal 74-106 The [facility] Comment on above: Performed By: #### C BC #### [facility] [address] [place] [address] Dr. Ramsey Sanchez Potassium [Moles/Vol] 4.1 mmol/L Normal 3.5-5.1 [facility] Comment on above: Performed By: #### C BC #### [facility] [address] [address] [address] Ramsey Sanchez Sodium [Moles/Vol] 140 mmol/L Normal 136-145 [facility] Comment on above: Performed By: #### C BC #### [facility] [address] [address] [address] Ramsey Sanchez Urea nitrogen [Mass/Vol] 16.0 mg/dL Normal 7.0-18.0 [facility] Comment on above: Performed By: #### C BC #### [facility] [address] [address] [address] Ramsey Sanchez Urea nitrogen/Creatinine [Mass ratio] 18.0 mg/mg Normal [facility] Comment on above: Performed By: #### C BC #### [facility] [address] [place] [address] Dr. Ramsey Sanchez STOOL CULTUREon 03-10-2022 Campylobacter Culture Final report [facility] Comment on above: Performed By: #### C XSTOOL #### [facility] [address] [place] [address] Dr. Ramsey Sanchez E coli Shiga Toxin EIA Negative Normal Negative [facility] Comment on above: Performed By: #### C XSTOOL #### [facility] [address] [place] [address] Dr. Ramsey Sanchez Result 1 Comment Normal [facility] Comment on above: Result Comment: No S almonella or Shigella recovered. Performed By: #### C XSTOOL #### [facility] [address] [place] [address] Dr. Ramsey Sanchez Result Comment: No C ampylobacter species isolated. Salmonella/Shigella Screen Final report Normal [facility] Comment on above: Performed By: #### C XSTOOL #### [facility] [address] [place] [address] Dr. Ramsey Sanchez VITAMIN D 25 OHon 03-10-2022 VIT D 25-OH 40.2 ng/mL Normal [facility] Comment on above: Performed By: #### V ITAD #### [facility] [address] [place] [address] Dr. Ramsey Sanchez VIT D RANGES SEE BELOW Normal [facility] Comment on above: Result Comment: <20 ng/mL Vit D deficient 20 - <30 ng/mL Vit D insufficient 30 - 100 ng/mL Vit D sufficient >100 ng/mL Potential Toxicity Performed By: #### V ITAD #### [facility] [address] [address] [address] Ramsey Sanchez POC GLUCOSE LABon 08-31-2019 Glucose [Mass/Vol] 120 mg/dL High 70-100 The [facility] Comment on above: Performed By: #### 8 5499 #### [facility] [address] [place] [address], [place] Glucose [Mass/Vol] 114 mg/dL High 70-100 [facility] Comment on above: Performed By: #### 8 5499 #### [facility] [address] [place] [address], [place] Glucose [Mass/Vol] 136 mg/dL High 70-100 [facility] Comment on above: Performed By: #### 8 5499 #### [facility] [address] [place] [address], [place] BASIC METABOLIC PANELon 08-15 Calcium [Mass/Vol] 9.3 mg/dL Normal 8.6-10.3 [facility] Comment on above: Performed By: #### 0 0071 #### [facility] [address] [place] [address], [place] Chloride [Moles/Vol] 103 mmol/L Normal 98-107 [facility] Comment on above: Performed By: #### 0 0071 #### [facility] [address] [place] [address], [place] CO2 [Moles/Vol] 27 mmol/L Normal 21-31 [facility] Comment on above: Performed By: #### 0 0071 #### [facility] [address] [place] [address], [place] Creatinine [Mass/Vol] 1.04 mg/dL Normal 0.70-1.30 [facility] Comment on above: Performed By: #### 0 0071 #### [facility] [address] [place] [address], [place] GFR/1.73 sq M predicted among blacks MDRD (S/P/Bld) [Vol rate/Area] mL/min/{1.73_m2} Normal >60 The [facility] Comment on above: Result Comment: Calc ulation may not be valid for patients over 70 years Performed By: #### 0 0071 #### [facility] [address] [place] [address], [place] GFR/1.73 sq M predicted among non-blacks MDRD (S/P/Bld) [Vol rate/Area] mL/min/{1.73_m2} Normal >60 The [facility] Comment on above: Result Comment: Calc ulation may not be valid for patients over 70 years Performed By: #### 0 0071 #### [facility] [address] [place] [address], [place] Glucose [Mass/Vol] 128 mg/dL High 70-100 [facility] Comment on above: Performed By: #### 0 0071 #### [facility] [address] [place] [address], [place] Potassium [Moles/Vol] 4.2 mmol/L Normal 3.5-5.1 [facility] Comment on above: Performed By: #### 0 0071 #### [facility] [address] [place] [address], [place] Sodium [Moles/Vol] 139 mmol/L Normal 136-145 [facility] Comment on above: Performed By: #### 0 0071 #### [facility] [address] [place] [address], [place] Urea nitrogen [Mass/Vol] 20 mg/dL Normal 7-25 [facility] Comment on above: Performed By: #### 0 0071 #### [facility] [address] CBC COMPLETE BLOOD COUNTon 0 - Erythrocyte distribution width (RBC) [Ratio] 13.9 % Normal 11.5-15.0 [facility] Comment on above: Performed By: #### 5 0608 #### [facility] [address] [facility]. [address] Hematocrit (Bld) [Volume fraction] 44.9 % Normal 39.0-50.0 [facility] Comment on above: Performed By: #### 5 0608 #### [facility] [address] Hemoglobin (Bld) [Mass/Vol] 14.5 g/dL Normal 13.0-17.0 [facility] Comment on above: Performed By: #### 5 0608 #### [facility] [address] MCH (RBC) [Entitic mass] 30.7 pg Normal 27.0-33.0 [facility] Comment on above: Performed By: #### 5 0608 #### [facility] [address] MCHC (RBC) [Mass/Vol] 32.3 g/dL Normal 32.0-35.0 [facility] Comment on above: Performed By: #### 5 0608 #### [facility] [address] MCV (RBC) [Entitic vol] 95.1 fL Normal 82.0-98.0 [facility] Comment on above: Performed By: #### 5 0608 #### [facility] [address] Nucleated RBC/100 WBC (Bld) [Ratio] 0 % Normal 0-0 [facility] Comment on above: Performed By: #### 5 0608 #### [facility] PLAT CNT 238 10*3/uL Normal 150-400 [facility] Comment on above: Performed By: #### 5 0608 #### [facility] [address] [place] [address], [facility] RBC (Bld) [#/Vol] 4.72 10*6/uL Normal 4.20-5.70 [facility] Comment on above: Performed By: #### 5 0608 #### [address] [address], [facility] WBC (Bld) [#/Vol] 12.83 10*3/uL High 4.00-10.60 [facility] Comment on above: Performed By: #### 5 0608 #### [address] Cardiovascular Lab Reporton 08-30-2019 Cardiovascular Lab Report [facility] Patient Name: [facility] MR #: [id number] Physician: Margaret Arellano, Department of M.D. Medicine Service Date: 08/30/2019 Division of Birthdate: 1940 Cardiology Room #: 3AB 618757 Adult [facility] Services [address] [address] Cardiovascular Laboratory Report FINAL IMPRESSIONS: 1. 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 2. 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 3. 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 4. 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 Arellano in the [place] office in the next 2 to 4 [...] left common femoral artery was obtained. A 6-Honduran 11 cm sheath was inserted without difficulty. Limited femoral angiography was performed. Bilateral selective coronary angiography was performed using JL4 and JR4 catheters. After reviewing the images, it was elected to proceed with an interventional procedure. A 6-Honduran XB 3.5 guide catheter was advanced over [...] conclude the procedure. Attempts to deploy a 6-Honduran MynxGrip closure device were unsuccessful. Therefore, manual [...] Annabelle/Margaret Arellano M.D. Date Trans: 08/30/2019 05:00 P/mmo [id number] cc: Sabino Cooper MD [facility] [place] [id number] [place] [facility] POC GLUCOSE LABon 08-30-2019 Glucose [Mass/Vol] 172 mg/dL High 70-100 [facility] Comment on above: Performed By: #### 8 [id number] #### [facility] [address] [place], [place] [address] Glucose [Mass/Vol] 138 mg/dL High 70-100 [facility] Comment on above: Performed By: #### 8 [id number] #### [facility] [address] [facility] [place], [place] [address] Vital Signs Date Time Vital Sign Value Performing Clinician Facility 02-16-2024 14:19-0400 Body height 162.6 cm Luc Ham MD Work Phone: [facility] 02-16-2024 14:19-0400 Body mass index (BMI) [Ratio] 29.87 kg/m2 Luc Ham MD Work Phone: [facility] 02-16-2024 14:19-0400 Body weight 78.93 kg Luc Ham MD Work Phone: [facility] 02-16-2024 14:19-0400 Diastolic blood pressure 74 mm[Hg] Luc Ham MD Work Phone: [facility] 02-16-2024 14:19-0400 Systolic blood pressure 129 mm[Hg] Luc Ham MD Work Phone: [facility] 02-16-2024 08:59-0400 Body height 162.6 cm Missy PEMBERTON Work Phone: [facility] 02-16-2024 08:59-0400 Body mass index (BMI) [Ratio] 29.7 kg/m2 Missy PEMBERTON Work Phone: [facility] 02-16-2024 08:59-0400 Body weight 78.47 kg Missy Lowe PA Work Phone: [facility] 02-16-2024 08:59-0400 Diastolic blood pressure 78 mm[Hg] Missy Lowe PA Work Phone: [facility] 02-16-2024 08:59-0400 Systolic blood pressure 118 mm[Hg] Missy Lowe PA Work Phone: [facility] 10-21-2023 14:32-0400 Blood Pressure Location Wiley Sarmini [facility] 10-21-2023 14:32-0400 Diastolic blood pressure 64 mm[Hg] Wiley Sarmini [facility] 10-21-2023 14:32-0400 Heart rate 73 /min Wiley Sarmini [facility] 10-21-2023 14:32-0400 Respiratory rate 18 /min Wiley Sarmini [facility] 10-21-2023 14:32-0400 Systolic blood pressure 130 mm[Hg] Wiley Sarmini [facility] 09-17-2023 08:58-0400 Blood Pressure Location Anjali Flori [facility] 09-17-2023 08:58-0400 Body temperature 97.34 [degF] Anjali Flori [facility] 09-17-2023 08:58-0400 Diastolic blood pressure 66 mm[Hg] Anjali Flori [facility] 09-17-2023 08:58-0400 Heart rate 66 /min Anjali Flori [facility] 09-17-2023 08:58-0400 Systolic blood pressure 123 mm[Hg] Anjali Ruby [facility] 09-02-2023 13:28-0400 Body height 167.64 cm [facility] 09-02-2023 13:28-0400 Body mass index (BMI) [Ratio] 28 kg/m2 [facility] 09-02-2023 13:28-0400 Body weight 78.69 kg [facility] 09-02-2023 13:28-0400 Diastolic blood pressure 61 mm[Hg] [facility] 09-02-2023 13:28-0400 Heart rate 67 /min [facility] 09-02-2023 13:28-0400 SaO2% (BldA) [Mass fraction] 95 % [facility] 09-02-2023 13:28-0400 Systolic blood pressure 113 mm[Hg] [facility] 07-27-2023 10:23-0400 Body height 167.64 cm [facility] 07-27-2023 10:23-0400 Body mass index (BMI) [Ratio] 27.5 kg/m2 [facility] 07-27-2023 10:23-0400 Body temperature 97.9 [degF] [facility] 07-27-2023 10:23-0400 Body weight 77.28 kg [facility] 07-27-2023 10:23-0400 Diastolic blood pressure 66 mm[Hg] [facility] 07-27-2023 10:23-0400 Heart rate 86 /min [facility] 07-27-2023 10:23-0400 Respiratory rate 18 /min [facility] 07-27-2023 10:23-0400 SaO2% (BldA) [Mass fraction] 97 % [facility] 07-27-2023 10:23-0400 Systolic blood pressure 121 mm[Hg] [facility] 05-31-2023 13:30-0500 Body height 167.64 cm Gisele Brunson Other [facility] Other 05-31-2023 13:30-0500 Body mass index (BMI) [Ratio] 27.6 kg/m2 Gisele Brunson Other [facility] Other 05-31-2023 13:30-0500 Body weight 77.57 kg Gisele Brunson Other [facility] Other 05-31-2023 13:30-0500 Diastolic blood pressure 55 mm[Hg] Gisele Brunson Other [facility] Other 05-31-2023 13:30-0500 SaO2% (BldA) [Mass fraction] 94 % Gisele Brunson Other [facility] Other 05-31-2023 13:30-0500 Systolic blood pressure 104 mm[Hg] Gisele Brunson Other [facility] Other 05-25-2023 12:21-0500 Blood Pressure Location Anjali Ruby [facility] 05-25-2023 12:21-0500 Diastolic blood pressure 65 mm[Hg] Anjali Ruby [facility] 05-25-2023 12:21-0500 Heart rate 88 /min Anjali Ruby [facility] 05-25-2023 12:21-0500 Respiratory rate 16 /min Anjali Staffordmetz [facility] 05-25-2023 12:21-0500 Systolic blood pressure 113 mm[Hg] Anjali Staffordmetz [facility] 04-01-2023 13:15-0500 Body temperature 97.11 [degF] Vaishali Pringle MD Work Phone: [facility] 04-01-2023 13:15-0500 Body weight 75.75 kg Vaishali Pringle MD Work Phone: [facility] 04-01-2023 13:15-0500 Diastolic blood pressure 66 mm[Hg] Vaishali Pringle MD Work Phone: [facility] 04-01-2023 13:15-0500 Heart rate 70 /min Vaishali Pringle MD Work Phone: [facility] 04-01-2023 13:15-0500 SaO2% (BldA) [Mass fraction] 97 % Vaishali Pringle MD Work Phone: [facility] 04-01-2023 13:15-0500 Systolic blood pressure 109 mm[Hg] Vaishali Pringle MD Work Phone: [facility] 03-10-2023 08:53-0400 Blood Pressure Location Anjali Ruby [facility] 03-10-2023 08:53-0400 Body temperature 97.16 [degF] Anjali Flori [facility] 03-10-2023 08:53-0400 Diastolic blood pressure 72 mm[Hg] Anjali Flori [facility] 03-10-2023 08:53-0400 Heart rate 63 /min Anjali Flori [facility] 03-10-2023 08:53-0400 Systolic blood pressure 117 mm[Hg] Anjali Flori [facility] 02-25-2023 13:27-0400 Blood Pressure Location Anjali Flori [facility] 02-25-2023 13:27-0400 Body temperature 98.06 [degF] Anjali Flori [facility] 02-25-2023 13:27-0400 Diastolic blood pressure 75 mm[Hg] Anjali Ruby [facility] 02-25-2023 13:27-0400 Heart rate 85 /min Anjali Ruby [facility] 02-25-2023 13:27-0400 Respiratory rate 16 /min Anjali Ruby [facility] 02-25-2023 13:27-0400 Systolic blood pressure 122 mm[Hg] Anjali Ruby [facility] 01-29-2023 10:15-0400 Body height 167.64 cm Gisele Brunson Other [facility] Other 01-29-2023 10:15-0400 Body mass index (BMI) [Ratio] 28.24 kg/m2 Gisele Brunson Other [facility] Other 01-29-2023 10:15-0400 Body weight 79.38 kg Gisele Brunson Other [facility] Other 01-29-2023 10:15-0400 Diastolic blood pressure 75 mm[Hg] Gisele Brunson Other [facility] Other 01-29-2023 10:15-0400 SaO2% (BldA) [Mass fraction] 95 % Gisele Brunson Other [facility] Other 01-29-2023 10:15-0400 Systolic blood pressure 118 mm[Hg] Gisele Brunson Other [facility] Other 01-12-2023 09:22-0400 Blood Pressure Location Anjali Ruby [facility] 01-12-2023 09:22-0400 Body temperature 96.98 [degF] Anjali Ruby [facility] 01-12-2023 09:22-0400 Diastolic blood pressure 68 mm[Hg] Anjali Ruby [facility] 01-12-2023 09:22-0400 Heart rate 69 /min Anjali Ruby [facility] 01-12-2023 09:22-0400 Systolic blood pressure 109 mm[Hg] Anjali Ruby [facility] 10-13-2022 09:45-0400 Body height 167.64 cm Gisele Brunson Other [facility] Other 10-13-2022 09:45-0400 Body mass index (BMI) [Ratio] 27.92 kg/m2 Gisele Brunson Other [facility] Other 10-13-2022 09:45-0400 Body weight 78.47 kg Gisele Brunson Other [facility] Other 10-13-2022 09:45-0400 Diastolic blood pressure 70 mm[Hg] Gisele Brunson Other [facility] Other 10-13-2022 09:45-0400 SaO2% (BldA) [Mass fraction] 95 % Gisele Brunson Other [facility] Other 10-13-2022 09:45-0400 Systolic blood pressure 116 mm[Hg] Gisele Brunson Other [facility] Other 09-22-2022 18:14-0400 Body temperature 99.86 [degF] Gordy Sánchez [facility] 09-22-2022 16:28-0400 Body temperature 101.3 [degF] Gordy Sánchez [facility] 09-22-2022 16:28-0400 Diastolic blood pressure 61 mm[Hg] Gordy Sánchez [facility] 09-22-2022 16:28-0400 Heart rate 79 /min Gordy Sánchez [facility] 09-22-2022 16:28-0400 Respiratory rate 17 /min Gordy Sánchez [facility] 09-22-2022 16:28-0400 SaO2% (BldA) [Mass fraction] 93 % Gordy Sánchez [facility] 09-22-2022 16:28-0400 Systolic blood pressure 111 mm[Hg] Gordy Sánchez [facility] 09-22-2022 14:10-0400 Body height 167.64 cm Griselda Aditi Other [facility] Other 09-22-2022 14:10-0400 Body mass index (BMI) [Ratio] 29.7 kg/m2 Griselda Aditi Other [facility] Other 09-22-2022 14:10-0400 Body temperature 100 [degF] Griselda Aditi Other [facility] Other 09-22-2022 14:10-0400 Body weight 83.46 kg Griselda Aditi Other [facility] Other 09-22-2022 14:10-0400 Respiratory rate 18 /min Griselda Aditi Other [facility] Other 09-22-2022 14:10-0400 SaO2% (BldA) [Mass fraction] 93 % Griselda Pennington Other [facility] Other 07-29-2022 10:15-0400 Body height 167.64 cm Erwin Salazar Other [facility] Other 07-29-2022 10:15-0400 Body mass index (BMI) [Ratio] 30.02 kg/m2 Erwin Salazar Other [facility] Other 07-29-2022 10:15-0400 Body weight 84.37 kg Erwin Salazar Other [facility] Other 07-29-2022 10:15-0400 Diastolic blood pressure 65 mm[Hg] Erwin Salazar Other [facility] Other 07-29-2022 10:15-0400 SaO2% (BldA) [Mass fraction] 94 % rEwin Salazar Other [facility] Other 07-29-2022 10:15-0400 Systolic blood pressure 102 mm[Hg] Erwin Salazar Other [facility] Other 11-29-2021 10:25-0400 Body height 167.64 cm Leti Garcia Other [facility] Other 11-29-2021 10:25-0400 Body temperature 96.9 [degF] Leti Garcia Other [facility] Other 11-29-2021 10:25-0400 Respiratory rate 18 /min Leti Garcia Other [facility] Other 11-29-2021 10:25-0400 SaO2% (BldA) [Mass fraction] 93 % Leti Garcia Other [facility] [employer] Other Encounters Encounter Date Encounter Type Care Provider Facility Start: 02-16-2024 End: 02-16-2024 Office outpatient visit 25 minutes Luc Ham MD Work Phone: [facility] Comment on above: LAD (lymphadenopathy ) of right cervical region (Primary Dx) Start: 02-16-2024 End: 02-16-2024 ambulatory LUC HAM Not Available Start: 02-16-2024 End: 02-16-2024 Bamboo flowsheet Missy Lowe PA Work Phone: [facility] Start: 02-16-2024 End: 02-16-2024 Bamboo flowsheet Missy Lowe PA Work Phone: [facility] [employer] [facility] Start: 02-16-2024 End: 02-16-2024 Office outpatient visit 15 minutes Missy Lowe PA Work Phone: [facility] [employer] [facility] Comment on above: Migraine without aur a and without status migrainosus, not intractable (CMS/HCC) (Primary Dx); Vertigo; Lumbar radiculopathy; Neck pain; Degenerative disc disease, cervical; Polyneuropathy Start: 02-16-2024 End: 02-16-2024 ambulatory MISSY LOWE Not Available Start: 02-14-2024 End: 02-14-2024 ambulatory LUC HAM Not Available Start: 02-02-2024 End: 02-18-2024 Telephone encounter Vaishali Pringle MD Work Phone: General Surgery Comment on above: MRI Appointment; Car e Coordinator - Other Start: 02-01-2024 End: 02-01-2024 Refill Vaishali Pringle MD Work Phone: General Surgery Start: 01-25-2024 End: 01-25-2024 ambulatory [facility] Start: 01-10-2024 End: 01-10-2024 ambulatory Sabino Cooper Facility:[facility] [place] Start: 11-30-2023 End: 11-30-2023 ambulatory [facility] Start: 11-29-2023 End: 11-29-2023 ambulatory Sabino Cooper Facility:[facility] [place] Start: 11-09-2023 End: 11-09-2023 ambulatory Wiley Talal Lilymini [facility] Start: 11-09-2023 End: 11-09-2023 Patient encounter procedure Wiley Talal Sarmini [facility] Start: 11-08-2023 End: 11-08-2023 ambulatory Sabino Cooper Facility:[facility] [place] Start: 10-21-2023 End: 10-21-2023 ambulatory Wiley Talal Lilymini Facility:[facility] Start: 10-21-2023 End: 10-21-2023 Patient encounter procedure Wiley Talal Sarmini [facility] Start: 09-17-2023 End: 09-17-2023 ambulatory Anjali Ruby [facility] Start: 09-17-2023 End: 09-17-2023 Patient encounter procedure Anjali Ruby [facility] Start: 09-02-2023 End: 09-02-2023 ambulatory [facility] Work Phone: Start: 09-02-2023 End: 09-02-2023 Patient encounter procedure [facility] Work Phone: Start: 09-01-2023 End: 09-01-2023 ambulatory MISSY WESTFALL Not Available Start: 08-30-2023 End: 08-30-2023 ambulatory Sabino Cooper Facility:[facility] [place] Start: 07-27-2023 End: 07-27-2023 Patient encounter procedure [facility] Work Phone: Start: 06-25-2023 End: 06-25-2023 [facility]ulatory [facility] Start: 06-14-2023 End: 06-14-2023 ambulatory Inez Henderson Facility[facility] Start: 05-31-2023 End: 05-31-2023 ambulatory Gisele Brunson Facility:[facility] Start: 05-31-2023 Office outpatient visit 25 minutes Gisele [facility] Start: 05-31-2023 End: 05-31-2023 ambulatory MD Sabino Cooper Work Phone: [facility] Work Phone: Start: 05-31-2023 End: 05-31-2023 Patient encounter procedure MD Sabino Cooper Work Phone: [facility] Work Phone: Start: 05-31-2023 End: 05-31-2023 ambulatory Sabino Cooper Facility:[facility] [place] Start: 05-25-2023 End: 05-25-2023 ambulatory Anjali Ruby Facility:[facility] Start: 05-25-2023 End: 05-25-2023 Patient encounter procedure Anjali Ruby [facility] Start: 05-25-2023 End: 05-25-2023 ambulatory DANIEL PATEL [facility] Start: 04-15-2023 End: 04-15-2023 ambulatory Gordy Powers Facility[facility] [facility] Start: 04-14-2023 End: 04-14-2023 ambulatory RUTHAB [facility] Start: 04-05-2023 Telephone encounter Vaishali orr MD Work Phone: General Surgery Comment on above: Received Outside Med ical Records Start: 04-01-2023 End: 04-01-2023 ambulatory VAISHALI PRINGLE Facility:[facility] Start: 04-01-2023 End: 04-01-2023 Patient encounter procedure Vaishali Pringle MD Work Phone: General Surgery Comment on above: IPMN (intraductal pa pillary mucinous neoplasm) (Primary Dx) Start: 03-10-2023 End: 03-10-2023 ambulatory Anjali Lyssa Ruby [facility] Start: 03-10-2023 End: 03-10-2023 Patient encounter procedure Anjali Ruby [facility] Start: 03-10-2023 End: 03-10-2023 [facility]ulatory [facility] Start: 03-10-2023 End: 03-10-2023 Patient encounter procedure Anjali Ruby [facility] Start: 02-25-2023 End: 02-25-2023 ambulatory [facility] Start: 02-25-2023 End: 02-25-2023 Patient encounter procedure Anjali Ruby [facility] Start: 02-16-2023 End: 02-16-2023 ambulatory Sabino Cooper Facility:[facility] Start: 02-16-2023 End: 02-16-2023 ambulatory MD Sabino Cooper Work Phone: [facility] Work Phone: Start: 02-16-2023 End: 02-16-2023 Patient encounter procedure MD Sabino Cooper Work Phone: [facility]-MRI [facility] [place] Work Phone: Start: 02-15-2023 End: 02-15-2023 ambulatory NUCLEAR CARDIOLOGY TECHNOLOGIST Yajaira Roque Facility:[facility] Start: 01-29-2023 Office outpatient visit 25 minutes Gisele Brunson [facility] Start: 01-29-2023 End: 01-29-2023 ambulatory MD Sabino Cooper Work Phone: [facility] Work Phone: Start: 01-29-2023 End: 01-29-2023 Patient encounter procedure MD Sabino Cooper Work Phone: [facility]-Sleep Lab Work Phone: Start: 01-27-2023 End: 01-27-2023 ambulatory Inez Henderson Facility:[id number] Start: 01-27-2023 End: 01-27-2023 ambulatory MD Sabino Cooper Work Phone: [facility] Work Phone: Start: 01-27-2023 End: 01-27-2023 Patient encounter procedure MD Sabino Cooper Work Phone: [facility]-Pacemaker Check Start: 01-12-2023 End: 01-12-2023 Patient encounter procedure Anjali Ruby [facility] Start: 12-17-2022 End: 12-17-2022 Patient encounter procedure Anjali Ruby [facility] Start: 12-09-2022 End: 12-09-2022 ambulatory Erwin Salazar Facility:[facility] Start: 12-09-2022 End: 12-09-2022 ambulatory MD Sabino Cooper Work Phone: [facility] Work Phone: Start: 12-09-2022 End: 12-09-2022 Patient encounter procedure MD Sabino Cooper Work Phone: [facility]-Sleep Lab Work Phone: Start: 11-23-2022 End: 07-10-2023 Lab Drop off Sabino Cooper [facility] Start: 10-13-2022 Office outpatient visit 15 minutes Gisele Brunson [facility] Start: 10-13-2022 End: 10-13-2022 ambulatory Gisele Brunson Facility:[facility] Start: 10-13-2022 End: 10-13-2022 ambulatory MD Mg London Work Phone: [facility] Work Phone: Start: 10-13-2022 End: 10-13-2022 Patient encounter procedure MD Mg London Work Phone: [facility]-Sleep Lab Work Phone: Start: 09-29-2022 End: 09-29-[address] EDY CARNEY Facility:[facility]1 Start: 09-24-2022 End: 09-25-[address] MG LONDON Facility:[facility]1 Start: 09-22-2022 End: 09-22-2022 Emergency department patient visit Gordy Sánhcez [facility] Start: 09-22-2022 Office outpatient visit 15 minutes Griselda Pennington [facility] [place] Start: 09-22-2022 End: 09-22-2022 ambulatory NARENDRANATH LAKSHMIPATHY . Fillm Other Start: 08-25-2022 End: 08-26-2022 ambulatory NARENDRANATH LAKSHMIPATHY . Facility:[facility] Start: 08-12-2022 ambulatory Facility:[id number] Start: 08-12-2022 End: 08-12-2022 ambulatory Missy Westfall Facility:[facility] Start: 08-12-2022 End: 08-12-2022 ambulatory MD Mg London Work Phone: [facility] Work Phone: Start: 08-12-2022 End: 08-12-2022 Patient encounter procedure MD Mg London Work Phone: [facility] Work Phone: Start: 08-11-2022 End: 08-11-2022 ambulatory EVERTMARY ALEXUSShi . Facility:[facility]1 Start: 07-29-2022 Office outpatient ne w 60 minutes Erwin Martin [facility] Start: 07-29-2022 End: 07-29-2022 ambulatory Erwin Salazar Facility:[facility] Start: 07-29-2022 End: 07-29-2022 ambulatory MD Mg London Work Phone: [facility] Work Phone: Start: 07-29-2022 End: 07-29-2022 Patient encounter procedure MD Mg London Work Phone: [facility]-Sleep Lab Work Phone: Start: 07-23-2022 End: 07-24-2022 ambulatory SONNY LAZO . Facility:[facility]1 Start: 07-22-2022 End: 07-23-2022 ambulatory ALANNA Araiza [facility] Facility[facility] Start: 07-21-2022 ambulatory Facility:[id number] Start: 07-21-2022 End: 07-21-2022 ambulatory Missy Westfall Facility:[facility] Start: 07-21-2022 End: 07-21-2022 ambulatory MD Mg London Work Phone: [facility] Work Phone: Start: 07-21-2022 End: 07-21-2022 Patient encounter procedure MD Mg London Work Phone: [facility]-Pacemaker Check Start: 06-18-2022 End: 07-10-2022 ambulatory SONA COPPOLA Facility:[facility]1 Start: 06-16-2022 End: 06-17-2022 ambulatory SONA ABDON Facility:[facility]1 Start: 06-11-2022 End: 06-12-2022 ambulatory ALANNA Araiza [facility] Facility:H1 Start: 05-26-2022 End: 05-26-2022 Patient encounter procedure Dequan GALICIA [facility] Start: 04-16-2022 End: 04-17-[address] ERWIN FALCON Facility:[facility]1 Start: 03-19-[address] AMANDA CLANCY . Faci lity:H1 Start: 03-12-2022 End: 03-13-2022 ambulatory ALANNA Araiza [facility] Facility:H1 Start: 03-10-2022 End: 03-11-2022 ambulatory DIEGO COYNE Facility:[facility]1 Start: 03-06-2022 End: 03-07-[address] DOCTOR GOFF Facility:[facility]1 Start: 12-25-2021 End: 12-26-2021 ambulatory SONNY LAZO . Facility:[facility]1 Start: 12-01-2021 End: 12-02-2021 ambulatory ALANNA Araiza [facility] Facility:H1 Start: 11-29-2021 End: 11-29-2021 ambulatory Leti Garcia Other Fillm Other Start: 11-29-2021 Office outpatient visit 15 minutes Leti Garcia [facility] [place] Start: 11-13-2021 End: 12-19-2021 ambulatory IFEOMA BRITTON Facility:H1 Start: 09-04-2020 End: 09-04-2020 Patient encounter procedure Param Cosme Work Phone: [facility] [place] Start: 08-15-2020 End: 08-15-2020 Patient encounter procedure Param Cosme -Pacemaker Check Start: 08-30-2019 End: 08-31-2019 Patient encounter procedure EHAB A ELTAHAWShi Facility:[facility] Procedures Date Procedure Procedure Detail Performing Clinician Start: 08-17-2023 Destructive procedure Anjali Ruby Comment on above: done for pain Start: 06-14-2023 Colonoscopy Anjali Ruby Start: 04-15-2023 Esophagogastroduodenoscopy Anjali mcwilliams Start: 02-16-2023 MR abdomen wo con MD Sabino Cooper Work Phone: Start: 08-12-2022 MRI of cervical spine without contrast MD Mg London Work Phone: Start: 08-12-2022 XR pre/post mri xray MD Mg [place] Work Phone: Start: 08-12-2022 MRI of right ankle MD gM [place] Work Phone: Start: 03-10-2022 PSA screening ALANNA HARDY Comment on above: Performed By: #### CBC #### [facility] [address] [address] [address] Ramsey Sanchez Start: 05-20-2020 Esophagogastroduodenoscopy Dequan MEE S Comment on above: 2 diminunative ulcers, gastritis, gastri c polyp, biopsy Angioplasty of blood vessel Dequan GALICIA Cardiac pacemaker procedure Dequancassidy GALICIA Cataract (disorder) Gordy brannon Comment on above: bilateral Cholecystectomy Dequan MALDONADO Colonoscopy Dequancassidy GALICIA Hernia repair Dequancassidy GALICIA Prostatectomy Dequancassidy GALICIA Tonsillectomy Dequancassidy GALICIA Vasectomy Dequancassidy GALICIA Plan of Treatment Date Care Activity Detail Author Start: 11-06-2024 ambulatory Ambulatory Facility:[facility] Start: 08-29-2024 End: 08-29-2024 Patient encounter procedure 08/29/2024 10:40 AM EDT Office Visit [facility] [address] [place] [address] Missy Westfall PA [address] [place] [address] [facility] Start: 04-17-2024 ambulatory Ambulatory Facility:[facility] [place] Start: 03-23-2024 ambulatory Ambulatory Facility:[facility] [place] Start: 02-16-2024 End: 02-16-2024 Patient encounter procedure 02/16/2024 2:30 PM EDT Office Visit [facility] [address] [place] [address] Luc Ham MD [address] [place] [address] [facility] Start: 02-16-2024 End: 02-16-2024 Patient encounter procedure 02/16/2024 9:20 AM EDT Office Visit [facility] [place] [facility] [place] [address] Missy Westfall PA [address] [place], [place] [id number] Arrived [facility] [place] [facility] Comment on above: Arrived Start: 01-16-2024 Covid-19 Vaccine ( season) Covid-19 Vaccine ( season) [facility] Start: 01-16-2024 Covid-19 Vaccine ( season) Covid-19 Vaccine ( season) [facility] Start: 01-16-2024 Influenza vaccination Influenza Vacc ine (#1) [facility] Start: 05-17-2023 Advance Directive Discussion Advance Directive Discussion [facility] Start: 01-15-2023 Covid-19 Vaccine ( season) Covid-19 Vaccine ( season) [facility] Start: 01-15-2023 Influenza vaccination Influenza Vacc ine (#1) [facility] Start: 11-12-2022 ambulatory Ambulatory Facility:H 1 Start: 05-17-2022 Advance Directive Discussion Advance Directive Discussion [facility] Start: 05-17-2022 Depression Assessment Depression Ass essment [facility] Start: 09-04-2020 MRI of right ankle MR ankle RT wo co n [facility] Start: 04-21-2021 XR pre/post mri xray XR pre/post mri xray [facility] Start: 01-30-2015 Pneumococcal Vaccine : 65+ (2 - PPSV23 or PCV20) Pneumococcal Vaccine: 65+ (2 - PPSV23 or PCV20) [facility] Start: 01-30-2015 Pneumococcal Vaccine : 65+ (2 of 2 - PPSV23 or PCV20) Pneumococcal Vaccine: 65+ (2 of 2 - PPSV23 or PCV20) [facility] Start: 10-29-2014 RSV Vaccine (1 - 1-d ose 75+ series) RSV Vaccine (1 - 1-dose 75+ series) [facility] Start: 1999 RSV Vaccine (1 - 1-d ose 60+ series) RSV Vaccine (1 - 1-dose 60+ series) [facility] Start: 10-29-1989 Shingrix Vaccine (1 of 2) Shingrix Vaccine (1 of 2) [facility] Start: 10-29-1984 Diabetes Screening Diabetes Screenin g [facility] Start: 10-29-1958 Urine microalbumin profile DTaP,Tdap,Td Vaccine (1 - Tdap) [facility] Start: 10-29-1957 Anxiety Screening Anxiety Screening [facility] Start: 10-29-1957 Depression Screening Depression Scre ening [facility] End: 03-02-2025 MR Biliary ducts and Pancreatic duct WO and W contrast IV MRI PANC/DEANNE WO/W IVCON Radiology Routine IPMN (intraductal papillary mucinous neoplasm) 1 Occurrences starting 02/01/2024 until 03/02/2025 [facility] Work Phone: Comment on above: 1 Occurrences starti ng 02/01/2024 until 03/02/2025 End: 03-02-2025 MR Unspecified body region 3D post processing MRI 3D POST PROCESSING Radiology Routine IPMN (intraductal papillary mucinous neoplasm) 1 Occurrences starting 02/01/2024 until 03/02/2025 [facility] Comment on above: 1 Occurrences starti ng 02/01/2024 until 03/02/2025 [facility] Immunizations Immunization Date Immunization Notes Care Provider Arely brantley 04-12-2023 influenza virus vaccine, unspecified formulation Anjali Ruby [facility] 11-25-2021 Pfizer Haque Cap SARS-CoV-2 Vaccination Missy Lowe PA Work Phone: [facility] 11-25-2021 SARS-CoV-2 mRNA (sxtrlmksucc-ezud-qcuw ose) vaccine Sabino Cooper [facility] 11-25-2021 SARS-CoV-2, Unspecified Missy Lowe PA Work Phone: [facility] 03-06-2021 SARS-CoV-2 (COVID-19 ) mRNA BNT-162b2 vax Sabino Cooper [facility] Comment on above: Result Comment: 2022: [id number] 03-06-2021 SARS-CoV-2, Unspecified Missy Lowe PA Work Phone: [facility] 02-18-2021 influenza virus vaccine, unspecified formulation Sabino Cooper [facility] 02-18-2021 Influenza, injectabl e, Madin Mireya Canine Kidney, preservative free, quadrivalent Missy Lowe PA Work Phone: [facility] 06-27-2020 SARS-CoV-2 (COVID-19 ) Ad26 vaccine, recombinant Dequan GALICIA [facility] 06-27-2020 SARS-CoV-2 (COVID-19 ) mRNA BNT-162b2 vax Dequan Six [facility] 06-27-2020 SARS-CoV-2, Unspecified Missy Lowe PA Work Phone: [facility] 06-06-2020 SARS-CoV-2 (COVID-19 ) Ad26 vaccine, recombinant Dequan GALICIA [facility] 06-06-2020 SARS-CoV-2 (COVID-19 ) mRNA BNT-162b2 vax Dequan [employer] [facility] 06-06-2020 SARS-CoV-2, Unspecified Missy Lowe PA Work Phone: [facility] 02-14-2020 influenza virus vaccine, unspecified formulation Sabino Cooper [facility] 02-14-2020 Influenza, injectabl e, Madin Mireya Canine Kidney, preservative free, quadrivalent Missy Lowe PA Work Phone: [facility] 01-31-2019 influenza, high dose seasonal, preservative-free Missy Lowe PA Work Phone: [facility] 01-22-2018 influenza virus vaccine, unspecified formulation Missy Lowe PA Work Phone: [facility] 01-22-2018 influenza, injectabl e, quadrivalent, contains preservative Missy Lowe PA Work Phone: [facility] 01-22-2018 influenza, unspecifi ed formulation Sabino Cooper [facility] 01-30-2014 pneumococcal conjuga te vaccine, 13 valent Sabino Ross [facility] 01-30-2014 pneumococcal conjuga te vaccine, 7 valent Missy Lowe PA Work Phone: [facility] Payers Date Payer Category Payer Medicare [id number] 2022 Medicare [id number] [id number] 2022 Self-pay [id number] 1959 Medicare [id number] 1959 Medicare [id number] 1959 Medicare [id number] 1959 Unknown [id number] 1939 Unknown [id number] 2.16.840.1.069326.3.579.2.647 1939 Unknown [id number] 2.16.840.1.576944.3.579.2.593 1939 Unknown [id number] 2.16.840.1.937053.3.579.2.593 1939 Unknown [id number] 2.16.840.1.266813.3.579.2.593 1939 Unknown [id number] 2.16.840.1.286732.3.579.2.593 1939 Unknown [id number] 2.16.840.1.793444.3.579.2.593 1939 Unknown [id number] 2.16.840.1.623118.3.579.2.593 1939 Unknown [id number] 2.16.840.1.700686.3.579.2.593 1939 Unknown [id number] 2.16.840.1.509679.3.579.2.593 1939 Unknown [id number] 2.16.840.1.158169.3.579.2.593 1939 Unknown [id number] 2.16.840.1.476667.3.579.2.593 1939 Unknown [id number] 2.16.840.1.118149.3.579.2.593 1939 Unknown [id number] 2.16.840.1.276277.3.579.2.593 1939 Unknown [id number] 2.16.840.1.500439.3.579.2.593 1939 Unknown [id number] 2.16.840.1.346523.3.579.2.593 1939 Unknown [id number] 2.16.840.1.813827.3.579.2.593 1939 Unknown [id number] 2.16.840.1.415375.3.579.2.593 1939 Unknown [id number] 2.16.840.1.435588.3.579.2.593 1939 Unknown [id number] 2.16.840.1.547608.3.579.2.593 1939 Unknown [id number] 2.16.840.1.913447.3.579.2.593 1939 Unknown [id number] 2.16.840.1.090391.3.579.2.593 1939 Unknown [id number] 2.16.840.1.978372.3.579.2.356 1939 Unknown [id number] 2.16.840.1.514494.3.579.2.356 1939 Unknown [id number] 2.16.840.1.839004.3.579.2.356 1939 Unknown [id number] 2.16.840.1.617619.3.579.2.727 1939 Unknown [id number] 2.16.840.1.887894.3.579.2.727 1939 Unknown [id number] 2.16.840.1.393694.3.579.2.727 1939 Unknown [id number] 2.16.840.1.607525.3.579.2.727 1939 Unknown [id number] 2.16.840.1.479436.3.579.2.727 1939 Unknown [id number] 2.16.840.1.186564.3.579.2.727 1939 Unknown [id number] 2.16.840.1.636317.3.579.2.727 1939 Unknown [id number] 2.16.840.1.915030.3.579.2.72 1939 Unknown [id number] 2.16.840.1.979008.3.579.2.72 1939 Unknown [id number] 2.16.840.1.233245.3.579.2.72 1939 Unknown [id number] 2.16.840.1.090407.3.579.2.72 1939 Unknown [id number] 2.16.840.1.331608.3.579.2. 1939 Unknown [id number] 2.16.840.1.970638.3.579.2.72 1939 Unknown [id number] 2.16.840.1.377950.3.579.2. 1939 Unknown [id number] 2.16.840.1.485934.3.579.2.72 1939 Unknown [id number] 2.16.840.1.541834.3.579.2. 1939 Unknown [id number] 2.16.840.1.422009.3.579.2.72 1939 Unknown [id number] 2.16.840.1.442935.3.579.2. 1939 Unknown [id number] 2.16.840.1.336422.3.579.2.72 1939 Unknown [id number] 2.16.840.1.557747.3.579.2.72 1939 Unknown [id number] 2.16.840.1.081316.3.579.2.72 1939 Unknown [id number] 2.16.840.1.695361.3.579.2.1259 1939 Unknown [id number] 2.16.840.1.638407.3.579.2.1259 1939 Unknown [id number] 2.16.840.1.431207.3.579.2.1259 1939 Unknown [id number] 2.16.840.1.867976.3.579.2.1259 1939 Unknown [id number] 2.16.840.1.941904.3.579.2.1259 Medicare [facility] Medicare Advantage [facility] [id number] Unknown [id number] 2.16.840.1.913083.3.579.2.531 Unknown [id number] 2.16.840.1.340068.3.579.2.531 Unknown [id number] 2.16.840.1.188205.3.579.2.531 Unknown [id number] 2.16.840.1.909732.3.579.2.531 Unknown [id number] 2.16.840.1.371579.3.579.2.531 Unknown [id number] 2.16.840.1.530180.3.579.2.531 Unknown [id number] 2.16.840.1.678756.3.579.2.531 Unknown [id number] 2.16.840.1.953335.3.579.2.531 Unknown [id number] 2.16840.1.232936.3.579.2.531 Unknown [id number] 2.16840.1.403800.3.579.2.531 Social History Date Type Detail Facility Tobacco smoking stat [facility] Unknown if ever smoked [facility] Start: 1940 Sex Assigned At Male F [facility] Start: 04-01-2023 End: 02-16-2024 [facility] Start: 04-27-2022 End: 04-01-2023 Tobacco smoking status Ex-smoker (finding) [facility] Comment on above: former smoker quit a t age 41, 1 PPD Patient states he sm oked about 1.5 PPD, cigarettes, from about 17 y.o. to about 41 y.o. Tobacco smoking status Never [facility] Comment on above: former smoker quit a t age 41, 1 PPD Patient states he sm oked about 1.5 PPD, cigarettes, from about 17 y.o. to about 41 y.o. History of tobacco use Current smoker [facility] History of tobacco use Cigarette Smoker [facility] Start: 04-01-2023 Tobacco use and exposure Smokeless tobacco non-user [facility] Start: 04-01-2023 End: 02-16-2024 History of Social function [facility] Start: 1940 Sex Assigned At Not on file [facility] History of tobacco use Passive smoker [facility] Start: 02-12-2024 End: 02-16-2024 Alcoholic beverage intake Current drinker of alcohol (finding) [facility] Start: 12-22-2022 Tobacco Comment Years smoked: 25 [facility] Start: 12-22-2022 Alcohol Comment 1 or 2 drinks/ day, monthly or less; Caffeine: 1 drink/day [facility] Medical Equipment Procedure Code Equipment Code Equipment [...] /State Functional Status Date Assessment Result Facility 10-21-2023 Functional Status N/A [facility] 09-17-2023 Functional Status N/A [facility] 05-25-2023 Functional Status N/A [facility] 03-10-2023 Functional Status N/A [facility] 02-25-2023 Functional Status N/A [facility] 01-12-2023 Functional Status N/A [facility] 09-22-2022 Functional Status N/A [facility] 05-19-2022 Functional Status N/A Flor - T [facility] Clinical Notes 11-29-2021 to 02-16-2024 Luc Ham MD - 02/16/2024 2:30 PM NILAY Thrasher - 02/16/2024 9:20 AM EDTTelephone Encounter - Carlitos Beckman - 02/07/2024 9:29 AM EDT Note Date & Type Note Facility 02-16-2024 History of Presen t illness Narrative Subjective Patient ID: Jeremie Bennett is a 83 y.o. male who presents for Parotid mass (Parotid mass) CT neck reviewed and there is a 1cm spherical LN medial to the RT superior SCM. Family History Problem Relation Name Age of Onset Hypertension Mother Heart disease Mother Stroke Mother Asthma Mother Kidney disease Mother Migraines Mother Other (prostate problem) Father Cancer Father Heart disease Maternal Grandmother Hypertension Maternal Grandmother Hyperlipidemia Maternal Grandmother Cancer Paternal Grandfather Other (stomach problem) Paternal Grandfather Active Ambulatory Problems Diagnosis Date Noted Arteriosclerosis of coronary artery ([facility]) 01/20/2019 Arthritis of ankle, right 01/27/2024 Arthritis of carpometacarpal ([facility]) joint of left thumb 01/27/2024 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/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 BMI 29.0-29.9,adult 01/27/2024 Cardiac dysrhythmia 04/03/2022 Ventricular tachycardia ([facility]) 01/27/2024 Carpal tunnel syndrome, left 01/27/2024 Carpal tunnel syndrome, right 01/27/2024 Cervical lymphadenopathy 01/27/2024 Spondylosis of cervical spine 01/27/2024 Cervical vertebral fusion 04/03/2022 Spondylosis of lumbar spine 01/27/2024 Chronic venous insufficiency 01/27/2024 Colon polyp 01/27/2024 Type 2 diabetes mellitus ([facility]) 01/27/2024 Type 2 diabetes mellitus without complication, without long-term current use of insulin ([facility]) 04/14/2023 Diabetic autonomic neuropathy associated with type 2 diabetes mellitus ([facility]) 04/14/2023 Diabetic peripheral neuropathy associated with type 2 diabetes mellitus ([facility]) 01/27/2024 Diverticulosis 01/27/2024 Dysphagia 04/14/2023 Essential hypertension (CMS/HCC) 04/03/2022 Excessive daytime sleepiness 01/27/2024 FH: stomach cancer 04/14/2023 Chronic GERD 01/27/2024 GERD with apnea 01/27/2024 Glaucoma (CMS/HCC) 04/03/2022 Hemorrhoids 01/27/2024 History of colon polyps 01/27/2024 History of malignant neoplasm of prostate 04/03/2022 [place] (hard of hearing) 04/03/2022 Hypercholesterolemia (CMS/HCC) 04/03/2022 Hyperlipidemia (CMS/HCC) 04/03/2022 Insomnia 04/03/2022 Internal derangement of right knee 01/27/2024 Irregular bowel habits 04/14/2023 Lump on neck 04/14/2023 Migraines (CMS/HCC) 04/03/2022 Aortic valve regurgitation 04/26/2019 Mitral valve regurgitation 04/26/2019 Neuropathy 04/03/2022 NPH (normal pressure hydrocephalus) (CMS/HCC) 04/03/2022 Central sleep apnea 01/27/2024 Obstructive sleep apnea 04/03/2022 Osteoarthritis 04/03/2022 Osteoarthritis of carpometacarpal (CMC) joint of left thumb 01/27/2024 Osteochondritis dissecans of right ankle 01/27/2024 Other specified disorders of synovium, right ankle and foot 01/27/2024 Pain in right ankle and joints of right foot 01/27/2024 Pancreatic cyst (CMS/HCC) 04/14/2023 Paresthesia of both hands 01/27/2024 Edema of lower extremity 04/26/2019 Polyneuropathy associated with underlying disease (CMS/HCC) 01/27/2024 Presence of cardiac pacemaker 03/14/2021 Prostate cancer (CMS/HCC) 04/03/2022 Prostatitis 04/14/2023 Skin cancer 04/03/2022 Swollen lymph nodes 04/14/2023 Thoracic aortic ectasia (CMS/HCC) 01/27/2024 Vitamin D deficiency 04/03/2022 Resolved Ambulatory Problems Diagnosis Date Noted Bloating 01/27/2024 Cellulitis of toe of left foot 01/27/2024 Cellulitis of toe of right foot 01/27/2024 Chest wall pain 04/03/2022 Gallstones 04/03/2022 COVID-19 11/10/2022 Entrapment of left ulnar nerve 01/27/2024 Entrapment of right ulnar nerve 01/27/2024 Fecal soiling 04/03/2022 Fecal urgency 04/14/2023 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CMS/HCC) 01/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 Lower abdominal pain 04/03/2022 Pain of upper abdomen 04/03/2022 Obesity with body mass index 30 or greater 04/03/2022 Onychomycosis 01/27/2024 Otitis media 04/14/2023 Pain in limb 01/27/2024 Peptic ulcer 04/03/2022 Right flank pain 04/03/2022 Unsteadiness on feet 01/27/2024 Mixed incontinence 01/27/2024 Past Medical History: Diagnosis Date Anemia At risk for falls BMI 32.0-32.9,adult Cataracts Cholelithiasis 2019 Diverticulitis GERD (gastroesophageal reflux disease) HTN (hypertension) (CMS/HCC) Migraine headache (CMS/HCC) Pain management Paronychia of great toe Personal history of other medical treatment 04/2018 Sinus tarsi syndrome of right foot Sleep apnea Toe pain, right Type 2 diabetes mellitus with diabetic neuropathy (CMS/HCC) Past Surgical History: Procedure Laterality Date CARDIAC CATHETERIZATION 08/30/2019 CATARACT EXTRACTION Bilateral CERVICAL FUSION 2016 C3-C4-C5 CHOLECYSTECTOMY HERNIA REPAIR 2001 INSERT / REPLACE / REMOVE PACEMAKER 2015 pacemaker insertion OTHER SURGICAL HISTORY 2005 ablation OTHER SURGICAL HISTORY 2007 sphincterotomy NV CHOLECYSTECTOMY 02/2020 Laparoscopic Cholecystectomy - [place] IMPLANT ARTIFICIAL SPHINCTER 2017 PROSTATE 2000 TONSILLECTOMY 1970 Allergies Allergen Reactions Niacin Itching and Unknown Wound Dressing Adhesive Unknown Current Outpatient Medications on File Prior to Visit Medication Sig Dispense Refill amLODIPine (Norvasc) 5 MG tablet Take 5 mg by mouth in the morning. aspirin 81 MG EC tablet Take 81 mg by mouth in the morning. plyhgkhfhc-ytjpiofzhupjl-maovdv ne 50-325-40 MG tablet Take 1 tablet by mouth every 4 (four) hours if needed for headaches. clopidogrel (Plavix) 75 MG tablet Take 75 mg by mouth in the morning. diphenhydrAMINE-acetaminophen (Tylenol PM) 25-500 MG per tablet Take 1 tablet by mouth as needed at bedtime for sleep. dorzolamide (Trusopt) 2 % ophthalmic solution 1 drop in the morning and 1 drop in the evening and 1 drop before bedtime. famotidine (Pepcid) 20 MG tablet Take 20 mg by mouth Daily fluticasone (Flonase) 50 MCG/ACT nasal spray Administer 1 spray into each nostril in the morning. Shake gently. Before first use, prime pump. After use, clean tip and replace cap.. furosemide (Lasix) 20 MG tablet TAKE 1 TABLET BY MOUTH DAILY 100 tablet 2 glucose blood test strip 1 each by Other route if needed. Use as instructed irbesartan (Avapro) 300 MG tablet Take 300 mg by mouth at bedtime. isosorbide mononitrate ER (Imdur) 30 MG 24 hr tablet Take 30 mg by mouth in the morning. Do not crush or chew. . Lancets (onetouch ultrasoft) lancets 1 each by Other route if needed. Use as instructed latanoprost (Xalatan) 0.005 % ophthalmic solution 1 drop at bedtime. loperamide (Imodium A-D) 2 MG tablet Take 2 mg by mouth 4 (four) times a day as needed for diarrhea. metFORMIN XR (Glucophage-XR) 500 MG 24 hr tablet TAKE 1 TABLET BY MOUTH TWICE DAILY (Patient taking differently: Take 500 mg by mouth in the evening. Take with meals) 180 tablet 3 Multiple Vitamin (multivitamin) tablet Take 1 tablet by mouth in the morning. omega-3 acid ethyl esters (Lovaza) 1 g capsule Take 1 g by mouth in the morning and 1 g before bedtime. omeprazole (PriLOSEC) [address] capsule Take 40 mg by mouth in the morning. Take before meals. Do not crush or chew. . psyllium (Metamucil 3 in 1 Daily Fiber) 400 MG capsule Take 3 capsules by mouth Daily Rimegepant Sulfate (Nurtec) 75 MG tablet dispersible 1 tab PO prn migraine. 16 tablet 2 rosuvastatin (Crestor) 10 MG tablet Take 10 mg by mouth in the morning. sotalol (Betapace) 80 MG tablet Take 80 mg by mouth. tiZANidine (Zanaflex) 4 MG tablet TAKE 1/2 TO 1 TABLET BY MOUTH AT BEDTIME 90 tablet 2 zonisamide (Zonegran) 25 MG capsule TAKE 1 CAPSULE BY MOUTH TWICE DAILY 180 capsule 3 [DISCONTINUED] Rimegepant Sulfate (Nurtec) 75 MG tablet dispersible Take 75 mg by mouth Daily as needed (migraine) 16 tablet 2 No current facility-administered medications on file prior to visit. Objective Last Recorded Vitals Vitals: 02/16/24 1419 BP: 129/74 ENT Physical Exam Constitutional Appearance: patient appears well-developed, well-nourished and well-groomed, Communication/Voice: communication appropriate for developmental age; vocal quality normal; Neck Neck comments: RT sup cervical LN c/w CT Assessment/Plan Diagnoses and all orders for this visit: LAD (lymphadenopathy) of right cervical region Pt has a small cervical LN that is upper limit olf normal sized, but morphologically abnormal. 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 Robins in [place] -he is following up with them next month ISIDRO -hx of ISIDRO -he is using BiPAP nightly -he takes Tylenol PM and this helps -he gets about 8 hour of sleep -he wakes feeling rested Dizziness Associated symptoms include headaches, neck pain and numbness. Pertinent negatives include no abdominal pain, chest pain, chills, fatigue, fever, nausea, vomiting or weakness. Neuropathy Allergies: Allergies Allergen Reactions Niacin Itching and Unknown Wound Dressing Adhesive Unknown Current Medications: Current Outpatient Medications Medication Instructions amLODIPine (NORVASC) 5 mg, Oral, Daily aspirin 81 mg, Oral, Daily vhccwyyopz-cmhtdehfkwmpp-ggelgg ne 50-325-40 MG tablet 1 tablet, Oral, Every 4 hours PRN clopidogrel (PLAVIX) 75 mg, Oral, Daily diphenhydrAMINE-acetaminophen (Tylenol PM) 25-500 MG per tablet 1 tablet, Oral, Nightly PRN dorzolamide (Trusopt) 2 % ophthalmic solution 1 drop, 3 times daily famotidine (PEPCID) 20 mg, Oral, Daily fluticasone (Flonase) 50 MCG/ACT nasal spray 1 spray, Each Nostril, Daily, Shake gently. Before first use, prime pump. After use, clean tip and replace cap. furosemide (LASIX) 20 mg, Oral, Daily glucose blood test strip 1 each, Other, As needed, Use as instructed irbesartan (AVAPRO) 300 mg, Oral, Nightly isosorbide mononitrate ER (IMDUR) 30 mg, Oral, Daily, Do not crush or chew. Lancets (onetouch ultrasoft) lancets 1 each, Other, As needed, Use as instructed latanoprost (Xalatan) 0.005 % ophthalmic solution 1 drop, Nightly loperamide (IMODIUM A-D) 2 mg, Oral, 4 times daily PRN metFORMIN XR (GLUCOPHAGE-XR) 500 mg, Oral, 2 times daily Multiple Vitamin (multivitamin) tablet 1 tablet, Oral, Daily omega-3 acid ethyl esters (LOVAZA) 1 g, Oral, 2 times daily omeprazole (PRILOSEC) 40 mg, Oral, Daily before breakfast, Do not crush or chew. psyllium (Metamucil 3 in 1 Daily Fiber) 400 MG capsule 3 capsules, Oral, Daily rosuvastatin (CRESTOR) 10 mg, Oral, Daily sotalol (BETAPACE) 80 mg, Oral tiZANidine (Zanaflex) 4 MG tablet TAKE 1/2 TO 1 TABLET BY MOUTH AT BEDTIME zonisamide (ZONEGRAN) 25 mg, Oral, 2 times daily Past Medical History: Past Medical History: Diagnosis Date Anemia At risk for falls BMI 32.0-32.9,adult Cataracts Cellulitis of toe of right foot 01/27/2024 Cholelithiasis 2020 Chronic venous insufficiency Diverticulitis Diverticulosis Entrapment of left ulnar nerve 01/27/2024 Entrapment of right ulnar nerve 01/27/2024 Gallstones 04/03/2022 no surgery as yet no surgery as yet GERD (gastroesophageal reflux disease) Glaucoma (CMS/HCC) HTN (hypertension) (CMS/HCC) Hyperlipidemia (CMS/HCC) 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[facility]/HCC) 01/27/2024 Migraine headache ([facility]) Mixed incontinence 01/27/2024 Other specified disorders of synovium, right ankle and foot Pain management Pain of upper abdomen 04/03/2022 Paronychia of great toe bilateral Peptic ulcer 04/03/2022 Personal history of other medical treatment 04/2018 body map scanned in for biopsies and trtm Prostate cancer ([facility]) Right flank pain 04/03/2022 Sinus tarsi syndrome of right foot Sleep apnea Toe pain, right Type 2 diabetes mellitus with diabetic neuropathy ([facility]) Ventricular tachycardia ([facility]) Past Surgical History: Past Surgical History: Procedure Laterality Date CARDIAC CATHETERIZATION 08/30/2019 CATARACT EXTRACTION Bilateral CERVICAL FUSION 2016 C3-C4-C5 CHOLECYSTECTOMY HERNIA REPAIR 2002 INSERT / REPLACE / REMOVE PACEMAKER 2015 pacemaker insertion OTHER SURGICAL HISTORY 2005 ablation OTHER SURGICAL HISTORY 2007 sphincterotomy [place] CHOLECYSTECTOMY 02/2020 Laparoscopic Cholecystectomy - [place] IMPLANT ARTIFICIAL SPHINCTER 2017 PROSTATE 2000 TONSILLECTOMY 1970 Family History: Family History Problem Relation Name Age of Onset Hypertension Mother Heart disease Mother Stroke Mother Asthma Mother Kidney disease Mother Migraines Mother Other (prostate problem) Father Cancer Father Heart disease Maternal Grandmother Hypertension Maternal Grandmother Hyperlipidemia Maternal Grandmother Cancer Paternal Grandfather Other (stomach problem) Paternal Grandfather Social History: Social History Tobacco Use Smoking status: Former Current packs/day: 1.00 Types: Cigarettes Passive exposure: Past Tobacco comments: Years smoked: 25 Substance Use Topics Alcohol use: Yes Comment: 1 or 2 drinks/day, monthly or less; Caffeine: 1 drink/day Drug use: Never Review of Systems: Review of Systems Constitutional: Negative for chills, fatigue and fever. Respiratory: Negative for chest tightness and shortness of breath. Cardiovascular: Negative for chest pain and palpitations. Gastrointestinal: Negative for abdominal pain, nausea and vomiting. Musculoskeletal: Positive for back pain and neck pain. Neurological: Positive for dizziness, light-headedness, numbness and headaches. Negative for tremors, seizures, syncope, facial asymmetry, speech difficulty and weakness. Patient is here today for follow-up of neck pain, back pain, headaches. I am following the plan of care established by the physician who is present in the office today. Objective: Vitals: Visit Vitals BP 118/78 Ht 5' 4 Wt 173 lb BMI 29.70 kg/m Smoking Status Former BSA 1.88 m Visit Vitals BP 118/78 Ht 5' 4 Wt 173 lb BMI 29.70 kg/m Smoking Status Former BSA 1.88 m Heart-RRR Neurological Exam Mental Status Awake, alert and oriented to person, place and time. Oriented to person, place, time and situation. Recent and remote memory are intact. Speech is normal. Language is fluent with no aphasia. Attention and concentration are normal. Cranial Nerves CN III, IV, : Extraocular movements intact bilaterally. Pupils equal round and reactive to light bilaterally. CN VII: Full and symmetric facial movement. CN VIII: Hearing is normal. CN IX, X: Palate elevates symmetrically CN XI: Shoulder shrug strength is normal. Motor Normal muscle bulk throughout. No fasciculations present. Normal muscle tone. Strength is 5/5 throughout all four extremities. Sensory Light touch is normal in upper and lower extremities. Reflexes Right Left Brachioradialis 2+ 2+ Biceps 2+ 2+ Patellar 2+ 2+ Coordination Right: Japcrx-nt-ooyi normal.Left: Qfnght-at-elyd normal. Gait Casual gait is normal including stance, stride, and arm swing. Antalgic. Assessment: Diagnoses and all orders for this visit: Migraine without aura and without status migrainosus, not intractable (CMS/HCC) Vertigo Lumbar radiculopathy Neck pain Degenerative disc disease, cervical Polyneuropathy 1. Vertigo - R42 (Primary), vertigo manifested as dizziness that started 6-7 years ago with worsening in the past 2 years. MRI brain and MRA of head/neck from 12/17/2020 was nonacute and did reveal multiple periventricular and subcortical white matter T2 and FLAIR hyperintense foci consistent with chronic microvascular ischemic change. The patient had a VNG on 10/17/20 that was abnormal. The patient also has hearing loss, requiring hearing aids, which could be contributing to his symptoms. He reports history of chronic neck pain and history of neck surgery with fusions years ago may also be contributing to vertigo symptoms and balance disturbance. Patient did experience relief with vestibular therapy. At baseline. He denies falls. 2. Radiculopathy, lumbar region - M54.16 3. Back pain, chronic - M54.9, Patient notes chronic back pain that has been present for years. He notes symptoms are worse with prolonged standing and improved when leaning over or sitting. EMG BLE 12/2020 revealed remote S1 radiculopathy on the left, mild in degree. He has done PT and did well and continues with home exercises.He had ablation with pain management early August 2023. The benefit persists. 4. Neuropathy - G62.9, EMG BLE 12/25/2020 revealed early findings suggestive of polyneuropathy, however findings may be age related. He was previously on gabapentin. His symptoms have increased to his bilateral feet manifested as increase in intensity to tingling manifested as sharp sensation that has improved significantly with cream. He was out of gabapentin and noticed no worsening . Zonegran provides benefit. 5. Carpal tunnel syndrome on both sides - G56.03, EMG BUE 07/2020 revealed bilateral median neuropathies consistent with CTS mild on the right and minimal on the left. EMG BUE (09/09/2021) revealed bilateral median neuropathies minimal in degree electrically. He did not have benefit with wrist braces. He continues with numbness and cold sensations. 6. Cervical radiculopathy - M54.12, Updated EMG BUE 08/2021 revealed remote C8 radiculopathy on the right, mild in degree electrically and remote C5 radiculopathy on the left, moderate in degree electrically. Patient reports history of neck surgery around 2013 and does note chronic neck pain and intermittent headaches. He has not responded to PT during past visits. 7. Neck pain - M54.2 8. Degenerative disc disease, cervical - M50.30,History of cervical spine surgery. MRI of the cervical spine 08/12/22 revealed multilevel disc, facet, and uncovertebral joint degenerative changes most pronounced at C5-C6 with a broad based disc bulge causing moderate to severe right neural foraminal narrowing. Migraine- Patient states that he has history of migraines which are occurring 3-4 per month. He states that Fioricet has been beneficial for years but his insurance is no longer covering. He has history of cardiac stents so we will avoid triptans. Plan: 1. Trial Nurtec 75mg ODT for abortive migraine therapy as we will avoid triptans due to coronary artery disease s/p stents. 2. I counseled the patient on the side effects of medications. 3. Continue Zonegran 25mg PO BID for neuropathic pain. 4. Continue Zanaflex 4mg 1 tab PO QHS for muscle spasms. 5. I counseled the patient on fall precautions. I discussed the high risk of trauma and debility associated with falls. He verbalized understanding. Follow up in 6 months documented in this encounter [facility] 02-07-2024 Telephone encounter Note Images from the original note were not included. IPMN surveillance. Review OSH images and advise please [facility] 11/09/2023 [facility] 02-07-2024 Miscellaneous Notes Images from the original note were not included. IPMN surveillance. Review OSH images and advise please [facility] 11/09/2023 Surveillance imaging completed at OSH for IPMN surveillance. Call to patient to discuss plan of care. Surveillance imaging needed to evaluate pancreas cyst. Dx: IPMN Per Dr. Vaishali Pringle- recommended repeat MRI in 1 year Last imaging 02/17/2024 Orders placed: MRI Pancreas w/wo IVCON Patient's local GI ordered MRI and it was completed in 12/2023 at [facility]. Our office will request results for Dr. Pringle's review. Follow up will be determined upon Dr. Pringle's review of results. documented in this encounter [facility] 02-04-2024 Telephone encounter Note Surveillance imaging completed at OSH for IPMN surveillance. [facility] 02-02-2024 Telephone encounter Note Call to patient to discuss plan of care. Surveillance imaging needed to evaluate pancreas cyst. Dx: IPMN Per Dr. Vaishali Pringle- recommended repeat MRI in 1 year Last imaging 02/17/2024 Orders placed: MRI Pancreas w/wo IVCON Patient's local GI ordered MRI and it was completed in 12/2023 at [facility]. Our office will request results for Dr. Pringle's review. Follow up will be determined upon Dr. Pringle's review of results. [facility] 11-29-2023 Note Patient Education Gastroenterology Abdominal Bloating When you have abdominal bloating, your abdomen may feel full, tight, or painful. It may also look bigger than normal or swollen (distended). Common causes of abdominal bloating include: ? Swallowing air. ? Constipation. ? Problems digesting food. ? Eating too much. ? Irritable bowel syndrome. This is a condition that affects the large intestine. ? Lactose intolerance. This is an inability to digest lactose, a natural sugar in dairy products. ? Celiac disease. This is a condition that affects the ability to digest gluten, a protein found in some grains. ? Gastroparesis. This is a condition that slows down the movement of food in the stomach and small intestine. It is more common in people with diabetes mellitus. ? Gastroesophageal reflux disease (GERD). This is a condition that makes stomach acid flow back into the esophagus. ? Urinary retention. This means that the body is holding onto urine, and the bladder cannot be emptied all the way. Follow these instructions at home: Eating and drinking ? Avoid eating too much. ? Try not to swallow air while talking or eating. ? Avoid eating while lying down. ? Avoid these foods and drinks: ? Foods that cause gas, such as broccoli, cabbage, cauliflower, and baked beans. ? Carbonated drinks. ? Hard candy. ? Chewing gum. Medicines ? Take amkc-amq-vgefsob and prescription medicines only as told by your health care provider. ? Take probiotic medicines. These medicines contain live bacteria or yeasts that can help digestion. ? Take coated peppermint oil capsules. General instructions ? Try to exercise regularly. Exercise may help to relieve bloating that is caused by gas and relieve constipation. ? Keep all follow-up visits. This is important. Contact a health care provider if: ? You have nausea and vomiting. ? You have diarrhea. ? You have abdominal pain. ? You have unusual weight loss or weight gain. ? You have severe pain, and medicines do not help. Get help right away if: ? You have chest pain. ? You have trouble breathing. ? You have shortness of breath. ? You have trouble urinating. ? You have darker urine than normal. ? You have blood in your stools or have dark, tarry stools. These symptoms may represent a serious problem that is an emergency. Do not wait to see if the symptoms will go away. Get medical help right away. Call your local emergency services (911 in the [place] Do not drive yourself to the hospital. Summary ? Abdominal bloating means that the abdomen is swollen. ? Common causes of abdominal bloating are swallowing air, constipation, and problems digesting food. ? Avoid eating too much and avoid swallowing air. ? Avoid foods that cause gas, carbonated drinks, hard candy, and chewing gum. This information is not intended to replace advice given to you by your health care provider. Make sure you discuss any questions you have with your health care provider. Document Revised: 12/03/2020 Document Reviewed: 12/03/2020 [employer] Patient Education ? 2022 [employer]. [facility] 09-17-2023 Hospital Discharg e instructions Patient Education 09/17/2023 09:05:07 Food Choices for Gastroesophageal Reflux Disease, Adult [...] help quitting, ask your health care provider. Sleep with the head of your bed [...] grapefruit, pineapple, and nury. Vegetables Deep-fried vegetables. Honduran fries. Any vegetables prepared with added fat. [...] taking medicines. Where to find more information International [...] provider. Document Revised: 11/11/2020 Document Reviewed: 11/11/2020 [employer] Patient Education 2022 [employer]. Follow Up Care 06/25/2023 12:06:59 With:Sammi CASON, NICOL Mccrary, [facility] Address: [facility] [address], [address] [place] [phone] When:3 months [facility] 06-16-2023 Note [id number] [facility] 05-31-2023 Evaluation note Encounter Date Diagnosis Assessment [...] months. A prescription was sent to the [facility] for new supplies throughout the year. He [...] sleepiness, or poor response to treatment. . [facility] Other 01-09-2024 Hospital Discharge instructions Patient Education [...] grapefruit, pineapple, and nury. Vegetables Deep-fried vegetables. [place]uran fries. Any vegetables prepared with added fat. [...] provider. Document Revised: 11/11/2020 Document Reviewed: 11/11/2020 [employer] Patient Education 2022 [employer]. Follow Up Care 02/25/2023 14:06:51 With:Anjali Ruby CNP Address: When:1 month [facility] 12-01-2023 Note [id number] Care After Procedure Please read the instructions outlined below and refer to this sheet in the next few weeks. These discharge instructions provide you with general information on caring for yourself after you leave thehospital. Your doctor may also give you specific [...] blood. Document Released: 12/15/2004 Document Re-Released: 10/25/2006 [facility]? Patient Information ?2009 [employer]. Gastroenterology Upper Endoscopy, Adult, Care After After [...] activities are safe for you. ? Take xxsq-iqf-fmjpfhr and prescription medicines only as told by [...] provider. Document Revised: 08/12/2022 Document Reviewed: 08/12/2022 [employer] Patient Education ? 2022 [employer].[facility]-14-20[facility] Note Chief Complaint: Patient here for 6 mo follow up CAD, hyperlipidemia, and hypertension. Due for routine device interrogation in May 2023. He is scheduled for EGD tomorrow at [facility]. Doesn't think he's had recent labs or testing. Denies chest pain, SOB, palpitations, and lightheadedness. Still does phase 3 cardiac rehab at [facility] 3 times a week. HPI: Jeremie [...] function is normal. L (more content not included)...[facility]11-20-2023 Miscellaneous Notes* Telephone Encounter - Lolly Dumont - 04/05/2023 9:44 AM EST Received records from [facility]. Reports for imaging listed below scanned. Images pushed through 09/27/2019 US Right Upper Quad 03/31/2020 CT ABD/PEL US Right Upper Quad [facility] MRI Abdomen 02/22/2023 US Soft Tissue Head & Neck Received many misc. labs & ER reports Operative Note & pathology from Laparoscopic Cholecystectomy Patient seen 04/01, please review, thank you! [facility] Nurse Note* Debby Holland MA - 04/01/2023 1:13 PM EST What is the reason for your visit today? Consult for PEH Who is your referring physician? Anjali Ruby CNP Are you having poor oral intake? NO Have you had unintentional weight loss of 15 lbs/7 Kg in the last 3-6 months? NO Bowels: off and on Wound: Temperature: No Drains: No [facility] History of Present illness Narrative* Vaishali Pringle [...] Level: 4 - Moderate documented in [facility]-2023 NoteHNO ID: [id number] Author: Vaishali Pringle MD Service: ? Author [...] Pringle MD Medical De (more content not included)...[facility]11-13-2023 NoteEhMD Melba Galloway MA The patient can hold Plavix for 5 days prior to the procedure and resume once acceptable. He must be on aspirin 81 mg daily while off Plavix. Thank you Done and faxed back to Dr. Powers Office.[facility] 03-10-2023 Hospital Discharge instructions Patient Education 03/10/2023 [...] Follow these instructions at home: Medicines Take qatu-yzr-wkwtrcg and prescription medicines only as told by [...] Watch your condition for any changes. Take sbuo-riu-xvpbvzs and prescription medicines only as told by [...] provider. Document Revised: 06/21/2020 Document Reviewed: 09/11/2019 [employer] Patient Education 2022 [employer]. Follow Up Care 03/09/2023 09:58:32 With:Anjali Ruby CNP Address: When:1 to 2 weeks Comments:Following EGD. [facility] 10-12-2023 Hospital Discharge instructions Patient [...] Follow these instructions at home: Medicines Take xdtp-cmd-npzmgzr and prescription medicines only as told by your health care provider. If you were prescribed an antibiotic medicine, take it as told by your health care provider. Do notstop taking the antibiotic even if you start to feel better. Eating and drinking Make any diet changes as told by your health care provider. Work with a diet and mass spectrometry specialist (dietitian) to create an eating plan [...] provider. Document Revised: 12/21/2020 Document Reviewed: 12/21/2020 [employer] Patient Education 2022 [employer]. Follow Up Care 02/22/2023 16:17:47 With:Anjali Ruby CNP Address: When:3 months [facility] 09-15-2023 Evaluation note* Encounter Date [...] months. A prescription was sent to the [facility] for new supplies throughout the year. He [...] sleepiness, or poor response to treatment. . [facility] Other 08-29-2023 Hospital Discharge instructions Patient Education [...] including vitamins, herbs, eye drops, creams, and dnup-wxo-thkgsjt medicines. Any problems you or family members [...] provider tells you to take them. Taking bwcw-yth-ijmvnbf medicines, vitamins, herbs, and supplements. General instructions [...] provider. Document Revised: 04/27/2022 Document Reviewed: 12/24/2021 Else[employer] Patient Education 2022 [employer]. Follow Up Care 12/28/2022 08:53:11 With:Anjali Ruby CNP Address: When:1 to 2 weeks Comments:Following EGD/Colonoscopy. [facility] 05-30-2023 Evaluation note* Encounter Date Diagnosis Assessment Notes [...] sleepiness, or poor response to treatment. . [facility] Other 05-09-2023 Hospital Discharge instructions Patient Education 09/22/2022 18:15:09 [...] managed at home with rest, fluids, and kkpn-mdu-gfnivqz medicines. Serious symptoms may be treated in [...] water are not available, use alcohol-based hand patternmaker plastics. Make sure that all people in your [...] managed at home with rest, fluids, and jccs-tey-jjwazmu medicines. This information is not intended to replace advice given to you by your health care provider. Make sure you discuss any questions you have with your health care provider. Document Revised: 04/23/2022 Document Reviewed: 04/23/2022 [employer] Patient Education 2022 [employer]. Follow Up Care 09/22/2022 16:24:11 With:Sabino Cooper Address: [address] [place] [address]- Business (2) When:09/25/2022 18:12:09 [facility]05-09-2023 Evaluation note* Encounter Date Diagnosis Assessment [...] no improvement in 2 to 3 days. [facility] Other 04-11-2023 NoteCONSULTATION CONSULTATION DATE: 08/25/2022 TO: [...] our patients to inform us about any dail-jkc-hszwevr medications or herbal remedies/nutritional supplements/alternative remedies. 2. [...] treatment options with their primary care provider.[facility] [id number] Evaluation note * Encounter Date Diagnosis Assessment [...] symptoms if he does not take his ybzq-ngt-jktaxhs hypnotic, sleep hygiene issues may also be [...] neuropathy pain Jul, Coronary artery disease involving cahuilla heart without angina pectoris, unspecified vessel or [...] he does have a defibrillator in place [facility] Other 03-09-2023 NoteCONSULTATION CONSULTATION DATE: 07/23/2022 HISTORY [...] gain authorization to hold the Plavix pre-procedure.[facility] [id number] NotePROCEDURE: XR ANKLE RT MIN 3 VIEWS COMPARISON: 08/22/2020 HISTORY: Pain of right ankle joint FINDINGS: BONES:No acute fracture or dislocation. Moderate enthesopathic spurring of the calcaneus. Degenerative changes with bone fragments along the inferior medial malleolus, stable. SOFT TISSUES:Negative. No visible soft tissue swelling. EFFUSION:None visible. OTHER: Negative. IMPRESSION: Stable degenerative changes Electronically authenticated by: ERWIN Nolasco: 2022-07-22 10:37[facility] [id number] NotePROCEDURE: XR FOOT RT MIN 3 VIEWS [...] authenticated by: CLARISSA GARCIA Date: 2022-06-16 15:25[facility] [id number] Hospital Discharge instructions Patient Education 05/26/2022 13:46:25 [...] With:Dequan GALICIA Address: [facility] [address] [place] [address]- Business (1) When: Unknown Comments:Office will call to schedule follow up [facility]08-11-2022 NoteCONSULTATION PROCEDURE DATE: 12/25/2021 PRE AND [...] will be followed up in the clinic.[facility] 12-25-2021 NoteCONSULTATION CONSULTATION DATE: 12/25/2021 This [...] recently seen at an urgent care in [place] for left thumb pain and joint swelling. [...] in three months' time unless otherwise indicated.[facility] [id number] Evaluation note* Encounter Date Diagnosis Assessment Notes [...] will help you get into a specialist. [facility] Other Chila complaint+Reason for visit Narrative* Chief Complaint N54.2 Self Referral [facility] Work Phone: Chiuf complaint+Reason for visit Narrative* Chief Complaint N54.2 Self Referral [phone] m54.12 m54.2 [facility] Work Phone: Chimj complaint+Reason for visit Narrative* Chief Complaint N54.2 Self Referral [id number] [phone] m54.12 m54.2 isidro, [id number] MSC [facility] Work Phone: Evaluation + Plan note No data available for this section [facility] Future Appointments Appointment Date:11/23/2022 09:00:00 AM Scheduled Provider:Sabino Cooper MD Location:[facility] Appointment Type:FM Open [facility] Future Appointments Appointment Date:12/15/2022 12:00:00 PM Scheduled Provider:Anjali Ruby CNP Location:[facility] Appointment Type:[facility] New Patient Appointment Date:05/31/2023 09:00:00 AM Scheduled Provider:Sabino Cooper MD Location:[facility] Appointment Type: Open Appointment Date:11/08/2023 01:00:00 PM Scheduled Provider: Location:[facility] Appointment Type: Medicare Wellness Subsequent Future Scheduled Tests Laboratory* HgbA1c 11/23/22 * CBC w/ Auto Diff 11/23/22 * Comprehensive Metabolic Panel 11/23/22 * Lipid Panel 11/23/22 [facility] Future Appointments Appointment Date:05/31/2023 09:00:00 AM Scheduled Provider:Sabino Cooper MD Location:[facility] Appointment Type: Open Appointment Date:11/08/2023 01:00:00 PM Scheduled Provider: Location:[facility] Appointment Type: Medicare Wellness Subsequent Future Scheduled Tests Laboratory* HgbA1c 11/23/22 * CBC w/ Auto Diff 11/23/22 * Comprehensive Metabolic Panel 11/23/22 * Lipid Panel 11/23/22 [facility] Future Appointments Appointment Date:05/31/2023 09:00:00 AM Scheduled Provider:Sabino Cooper MD Location:[facility] Appointment Type: Open Appointment Date:11/08/2023 01:00:00 PM Scheduled Provider: Location:[facility] Appointment Type:FM Medicare Wellness Subsequent Future Scheduled Tests Laboratory* HgbA1c 11/23/22 * CBC w/ Auto Diff 11/23/22 * Comprehensive Metabolic Panel 11/23/22 * Lipid Panel 11/23/22 Radiology* CT Abdomen w/ Contrast 01/12/23 [facility] Evaluation + Plan note Future Appointments Appointment Date:05/03/2023 01:40:00 PM Scheduled Provider:Anjali Ruby CNP Location:[facility] Appointment Type:[facility] Follow Up Appointment Date:05/31/2023 09:00:00 AM Scheduled Provider:Sabino Cooper MD Location:[facility] Appointment Type: Open Appointment Date:11/08/2023 01:00:00 PM Scheduled Provider: Location:[facility] Appointment Type:FM Medicare Wellness Subsequent Future Scheduled Tests Laboratory* HgbA1c 11/23/22 * CBC w/ Auto Diff 11/23/22 * Comprehensive Metabolic Panel 11/23/22 * Lipid Panel 11/23/22 [facility] Evaluation + Plan note Future Appointments Appointment Date:05/03/2023 01:40:00 PM Scheduled Provider:Anjali Ruby CNP Location:[facility] Appointment Type:[facility] Follow Up Appointment Date:05/31/2023 10:00:00 AM Scheduled Provider:Sabino Cooper MD Location:[facility] Appointment Type: Open Appointment Date:11/08/2023 01:00:00 PM Scheduled Provider: Location:[facility] Appointment Type:FM Medicare Wellness Subsequent Future Scheduled Tests Laboratory* HgbA1c 11/23/22 * CBC w/ Auto Diff 11/23/22 * Comprehensive Metabolic Panel 11/23/22 * Lipid Panel 11/23/22 [facility] Evaluation + Plan note Future Appointments Appointment Date:05/03/2023 01:40:00 PM Scheduled Provider:Anjali Ruby CNP Location:[facility] Appointment Type:[facility] Follow Up Appointment Date:05/31/2023 10:00:00 AM Scheduled Provider:Sabino Cooper MD Location:[facility] Appointment Type: Open Appointment Date:11/08/2023 01:00:00 PM Scheduled Provider: Location:[facility] Appointment Type:FM Medicare Wellness Subsequent Diagnostic Tests Pending * O & P Exam, Routine 03/10/23 * Giardia lamblia, Direct Detection EIA 03/10/23 Future Scheduled Tests Laboratory* HgbA1c 11/23/22 * CBC w/ Auto Diff 11/23/22 * Comprehensive Metabolic Panel 11/23/22 * Lipid Panel 11/23/22 [facility] Future Appointments Appointment Date:05/31/2023 10:00:00 AM Scheduled Provider:Sabino Cooper MD Location:[facility] Appointment Type: Open Appointment Date:06/25/2023 01:20:00 PM Scheduled Provider:Anjali Ruby CNP Location:[facility] Appointment Type:[facility] Follow Up Appointment Date:11/08/2023 01:00:00 PM Scheduled Provider: Location:[facility] Appointment Type: Medicare Wellness Subsequent Future Scheduled Tests Laboratory* HgbA1c 11/23/22 * CBC w/ Auto Diff 11/23/22 * Comprehensive Metabolic Panel 11/23/22 * Lipid Panel 11/23/22 [facility] evaluation + Plan note Future Appointments Appointment Date:10/21/2023 03:00:00 PM Scheduled Provider:Inez Henderson MD Location:[facility] Appointment Type:[facility] Follow Up Appointment Date:11/08/2023 01:00:00 PM Scheduled Provider: Location:[facility] Appointment Type:FM Medicare Wellness Subsequent Appointment Date:11/29/2023 10:15:00 AM Scheduled Provider:Sabino Cooper MD Location:[facility] Appointment Type: Open Future Scheduled Tests Laboratory* U Protein/Creat Ratio 05/31/23 * HgbA1c 11/23/22 * HgbA1c 05/31/23 * Microalbumin Level Urine 05/31/23 * CBC w/ Auto Diff 11/23/22 * Comprehensive Metabolic Panel 11/23/22 * Lipid Panel 11/23/22 [facility] evaluation + Plan note Future Appointments Appointment Date:10/21/2023 03:00:00 PM Scheduled Provider:Inez Henderson MD Location:[facility] Appointment Type:[facility] Follow Up Appointment Date:11/08/2023 01:00:00 PM Scheduled Provider: Location:[facility] Appointment Type:FM Medicare Wellness Subsequent Appointment Date:11/29/2023 10:15:00 AM Scheduled Provider:Sabino Cooper MD Location:[facility] Appointment Type: Open Diagnostic Tests Pending * Celiac Disease Comprehensive 09/17/23 Future Scheduled Tests Laboratory* U Protein/Creat Ratio 05/31/23 * HgbA1c 11/23/22 * HgbA1c 05/31/23 * Microalbumin Level Urine 05/31/23 * CBC w/ Auto Diff 11/23/22 * Comprehensive Metabolic Panel 11/23/22 * Lipid Panel 11/23/22 [facility] Future Appointments Appointment Date:11/08/2023 01:00:00 PM Scheduled Provider: Location:[facility] Appointment Type: Medicare Wellness Subsequent Appointment Date:11/29/2023 10:15:00 AM Scheduled Provider:Sabino Cooper MD Location:[facility] Appointment Type: Open Appointment Date:03/23/2024 02:45:00 PM Scheduled Provider:Inez Henderson MD Location:[facility] Appointment Type:[facility] Follow Up Future Scheduled Tests Laboratory* U Protein/Creat Ratio 05/31/23 * HgbA1c 11/23/22 * HgbA1c 05/31/23 * Microalbumin Level Urine 05/31/23 * CBC w/ Auto Diff 11/23/22 * Comprehensive Metabolic Panel 11/23/22 * Lipid Panel 11/23/22 Radiology* MRI Cholangiogram Pancreatography (mrcp) 10/21/23 [facility] Evaluation + Plan note Future Appointments Appointment Date:11/29/2023 10:15:00 AM Scheduled Provider:Sabino Cooper MD Location:[facility] Appointment Type: Open Appointment Date:03/23/2024 02:45:00 PM Scheduled Provider:Inez Henderson MD Location:[facility] Appointment Type:[facility] Follow Up Appointment Date:11/06/2024 02:30:00 PM Scheduled Provider: Location:[facility] Appointment Type:FM Medicare Wellness Subsequent Future Scheduled Tests Laboratory* U Protein/Creat Ratio 11/24/23 * U Protein/Creat Ratio 05/31/23 * HgbA1c 11/30/23 * HgbA1c 11/23/22 * HgbA1c 05/31/23 * Microalbumin Level Urine 11/24/23 * Microalbumin Level Urine 05/31/23 * CBC w/ Auto Diff 11/23/22 * Comprehensive Metabolic Panel 11/23/22 * Lipid Panel 11/08/23 * Lipid Panel 11/23/22 [facility] Assessments Information Available [facility] noteNo assessment information available [facility] Work Phone: Evaluation note* Diagnosis 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 [facility]* Diagnosis 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 [facility]* Diagnosis Onset Date Resolution Status Viral URI with cough noneact rosa Impacted cerumen, bilateral noneactive Central sleep apnea acute DM (diabetes mellitus) acute Essential hypertension acute Obstructive sleep apnea acut e [facility] Work Phone: Evaluation note* Diagnosis 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 [facility]* Diagnosis Migraine without aura and without status migrainosus, not intractable (CMS/HCC)- Primary Vertigo Dizziness and giddiness Lumbar radiculopathy Thoracic or lumbosacral neuritis or radiculitis, unspecified Neck pain Cervicalgia Degenerative disc disease, cervical Polyneuropathy Unspecified hereditary and idiopathic peripheral neuropathy documented in this encounter [facility]* Diagnosis LAD (lymphadenopathy) of right cervical region- Primary documented in this encounter [facility]* Diagnosis 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 documented in this encounter [facility] general Narrative - Reported* Type Description Date Medical History DM (diabetes mellitus) Medical History HTN (hypertension) Medical History Hypercholesteremia Medical History Vitamin D deficiency, unspecifie d Medical History CAD (coronary artery disease) Surgical History Neck Surgery Surgical History cholecystectomy Surgical History cardiac stent Surgical History prostatectomy Surgical History hernia Hospitalization History see above [facility] Other History general Narrative - Reported* Type [...] Surgical History hernia Hospitalization History see above [facility] Other Hospital Discharge instructions No data available for this section [facility] No data available for this section [facility] HospitalReason for referral (narrative) Referred by: Anjali Ruby CNP [facility] Summary Purpose Family History Relationship Condition Age at Onset Recorded Date/T olivia father Glaucoma Unknown Unknown Not Specified Unknown History of stroke Unknown Family history of emphysema Unknown Hypertension Unknown Heart disease Unknown sister Malignant neoplasm Unknown Advance Directives Advance Directive Response Recorded Date/ [...] day follow up k86.2 Chief Complaint isidro-3months Chief Complaint Cough, congestion ISIDRO/ 3 MONTH Reason for Visit Viral URI with cough Impacted cerumen, bilateral Central sleep apnea DM (diabetes mellitus) Essential hypertension Obstructive sleep apnea Assessments No Assessments Information Available Reason for Referral Specialty Diagnoses / Procedures Referred By Bakari rosado Referred To Contact Diagnoses Migraine without aura and without status migrainosus, not intractable (CMS/HCC) Missy Westfall PA [address] [place] [address] Referral ID Status Reason Start Date Expiration Date V isits Requested Visits Authorized [id number] Pending Review 02/16/2024 08/14/2024 1 1 Specialty Diagnoses / Procedures Referred By Bakari rosado Referred To Contact MR IMAGING Diagnoses IPMN (intraductal papillary mucinous neoplasm) Procedures MRI 3D POST PROCESSING 3D RENDERING W/INTERP&POSTPROC [place] [address] [place] [address] Mr Imaging [place] [address] Referral ID Status Reason Start Date Expiration Date Visits Requested Visits Authorized [id number] New Request Auto-Generat ed Referral 02/01/2024 03/02/2025 1 1 Specialty Diagnoses / Procedures Referred By Eduardoac t Referred To Contact MR IMAGING Diagnoses IPMN (intraductal papillary mucinous neoplasm) Procedures MRI PANC/DEANNE WO/W IVCON MRI ABDOMEN W/O & W/[place] [address] [place] [address] Mr Imaging [place] [address] Referral ID Status Reason Start Date Expiration Date Visits Requested Visits Authorized [id number] New Request Auto-Generat ed Referral 02/01/2024 03/02/2025 1 1 Additional Source Comments (unrecognized sect ion and content) No Status Records FoundNo Status Records FoundNo Status Records FoundNo Status Records FoundNo Status Records FoundNo Status Records FoundNo Status Records FoundNo Status Records Found INFORMATION SOURCE (unrecogn ized section and content) DATE CREATED AUTHOR 02/08/2020 [facility] DATE CREATED AUTHOR AUTHOR'S ORGANIZ ATION 09/30/2022 [facility] DATE CREATED AUTHOR AUTHOR'S ORGANIZ ATION 02/04/2023 [facility] DATE CREATED AUTHOR AUTHOR'S ORGANIZ ATION 06/25/2023 [facility] DATE CREATED AUTHOR AUTHOR'S ORGANIZ ATION 01/26/2024 [facility] DATE CREATED AUTHOR AUTHOR'S ORGANIZ ATION 02/06/2024 [facility] DATE CREATED AUTHOR AUTHOR'S ORGANIZ ATION 02/19/2024 [facility] DATE CREATED AUTHOR AUTHOR'S ORGANIZ ATION 02/20/2024 [facility] REASON FOR VISIT (unrecogniz ed section and content) Reason Comments Consult PEH Reason Comments Received Outside Medical Records Reason Comments Back Pain Dizziness Neck Pain Reason Comments Parotid mass Parotid mass Reason Comments MRI Appointment [employer] - Other Patient Care team informatio n (unrecognized section [...] Active Anjali Ruby NP-C Attending Provider Active Jail Keeper Relationship Specialty Start Date End Date Anjali Ruby CNP [address] [place] [address] Referring Family Medicine 03/03/23 Jail Keeper Relationship Specialty Start Date End Date Anjali Ruby CNP [address] [place] [address] Referring Family Medicine 03/03/23 Team Status: Inactive Member Role Status Dates Sabino Cooper MD Primary Care Provider Active Start: July 27, 2023 End: July 27, 2023 Keisha Miller APRN Attending Provider Active Start: July 27, 2023 End: July 27, 2023 Team Status: Inactive Member Role Status Dates Sabino Cooper MD Primary Care Provider Active Start: September 02, 2023 End: September 02, 2023 Gisele Brunson NP Attending Provider Active Start: September 02, 2023 End: September 02, 2023 Jail Keeper Relationship Specialty Start Date End Date Anjali Ruby CNP [address] [place] [place] [address] Referring Family Medicine 03/03/23 Jail Keeper Relationship Specialty Start Date End Date Sabino Cooper MD [address] [place] [phone] PCP - General Family Medicine 01/26/24 Clarissa Corado MD [address] [place] [address] Referring Physician Neurology 08/03/23 Jail Keeper Relationship Specialty Start Date End Date Sabino Cooper MD [address] [place] [id number] PCP - General Family Medicine 01/26/24 Clarissa Corado MD [address] [place] [address] Referring Physician Neurology 08/03/23 Jail Keeper Relationship Specialty Start Date End Date Sabino Cooper MD [address] [place] [phone] PCP - General Family Medicine 01/26/24 Clarissa Corado MD [address] [place] [address] Referring Physician Neurology 08/03/23 Jail Keeper Relationship Specialty Start Date End Date Anjali Ruby CNP [address] [place] [address] (work) Referring Family Medicine 03/03/23 Goals (unrecognized section [...] or prosecute any alcohol or drug abuse patient.[facility] [facility] HospitalIn the event this information is protected by the Federal Confidentiality of Alcohol and Drug Abuse Patient Records regulations: The Federal rules restrict any use of the information to criminally investigate or prosecute any alcohol or drug abuse patient.[facility] Hospital[facility] the event this information is protected by the Federal Confidentiality of Alcohol and Drug Abuse Patient Records regulations: The Federal rules restrict any use of the information to criminally investigate or prosecute any alcohol or drug abuse patient.[facility] Hospital[facility] the event this information is protected by the Federal Confidentiality of Alcohol and Drug Abuse Patient Records regulations: The Federal rules restrict any use of the information to criminally investigate or prosecute any alcohol or drug abuse patient.[facility] FOR RECORDS PERTAINING TO PATIENTS WHO ARE [...] THE PRIMARY CLINICAL RECORDS. [facility]. provides no warranty or guarantee of the accuracy or completeness of information in this document.
[2024-02-29 09:05] VITALS: BP 126/69; PULSE 69; O2SAT 94
[2024-02-29] MEDS: LIDOCAINE HCL 10 ML, SODIUM BICARBONATE 1 MEQ INJ (09:45)
--- NOTE | 2024-02-29 10:45 | SUR.PREOP ---
02/18/24 Pt instructed on procedure, date, time, and prep. Pt made aware to hold PLavix x 5 days prior to procedure.
== END 2024-02-29 10:20 | disposition home or self-care (01) ==
LOC: US 08:45
PROVIDERS: Radiology Diagnostic Radiology; PCP Family Medicine; Visit Provider Otolaryngology
DX: C77.0 Secondary and unspecified malignant neoplasm of lymph nodes of head, face and neck (principal); Z85.828 Personal history of other malignant neoplasm of skin; Z85.46 Personal history of malignant neoplasm of prostate
CPT/HCPCS: 38505; 88305; 88313; 88341; 88342

== ENCOUNTER 2024-03-22 08:35 | Outpatient (OUT) | payer MEDICARE, SELFPAY ==
--- NOTE | 2024-03-22 09:19 | P.CN_ITS ---
Consult Note: HPI Data of Consult Patient: known to practice within the last 3 years Requesting Physician: Alexadnra Trevizo NP Primary Care Provider: SABINO COOPER Consult Narrative Reason for consult: Procedure f/u Narrative: Jiar Bennett a pleasant 83 year old male presents for evaluation of chronic low back pain. Previously underwent right lumbar 2,3 &4,5 facet RFA providing greater than 50% improvement in pain and functional ability ongoing. Pain 4-5/10 increasing to 8/10 at its worst. Patient continues to have moderate to severe neck pain without radiculopathy. active in HEP greater than 6 weeks without benefit. hx of cervical fusion. Since last visit, pt has been diagnosed with CA (lymphoma per pt) and is following with Dr Mcghee and [facility]. Patient was previously finding benefit to transdermal therapeutics 3, no longer finding it effective. Utilizes zonegran 25mg BID, tizanidine 4mg HS PRN, and tylenol PRN with moderate benefit. cc:: CC: Alexandra Trevizo NP Review of Systems ROS Status of ROS 10 or more systems reviewed and unremark able except as noted in history and below Musculoskeletal Reports: [facility] Medical History (Updated 02/21/24 @ 11:44 by Kandi Vogt) Anemia ?D64.9 - Anemia, unspecified (ICD-10) COVID ?U07.1 - COVID-19 (ICD-10) Vitamin D deficiency ?E55.9 - Vitamin D deficiency, unspecified (ICD-10) Skin cancer ?C44.90 - Unspecified malignant neoplasm of skin, unspecified (ICD-10) NPH (normal pressure hydrocephalus) ?G91.2 - (Idiopathic) normal pressure hydrocephalus (ICD-10) Migraine ?G43.909 - Migraine, unspecified, not intractable, without status migrainosus (ICD-10) Glaucoma ?H40.9 - Unspecified glaucoma (ICD-10) Diverticulosis ?K57.90 - Diverticulosis of intestine, part unspecified, without perforation or abscess without bleeding (ICD-10) Ventricular tachycardia ?I47.20 - Ventricular tachycardia, unspecified (ICD-10) Arthritis ?M19.90 - Unspecified osteoarthritis, unspecified site (ICD-10) Cervical lymphadenopathy ?R59.0 - Localized enlarged lymph nodes (ICD-10) Neck pain ?M54.2 - Cervicalgia (ICD-10) Low back pain ?M54.50 - Low back pain, unspecified (ICD-10) Thrombosis ?I82.90 - Acute embolism and thrombosis of unspecified vein (ICD-10) Weakness ?R53.1 - Weakness (ICD-10) Hiatal hernia ?K44.9 - Diaphragmatic hernia without obstruction or gangrene (ICD-10) Acid reflux ?K21.9 - Gastro-esophageal reflux disease without esophagitis (ICD-10) Diabetes ?E11.9 - Type 2 diabetes mellitus without complications (ICD-10) Prostate cancer ?C61 - Malignant neoplasm of prostate (ICD-10) Sleep apnea ?G47.30 - Sleep apnea, unspecified (ICD-10) Irregular heart beat ?I49.9 - Cardiac arrhythmia, unspecified (ICD-10) High cholesterol ?E78.00 - Pure hypercholesterolemia, unspecified (ICD-10) Hypertension ?I10 - Essential (primary) hypertension (ICD-10) Surgical History History of lymph node biopsy ?Z98.890 - Other specified postprocedural states (ICD-10) History of implantation of artificial sphincter ?Z96.89 - Presence of other specified functional implants (ICD-10) Hx laparoscopic cholecystectomy ?Z90.49 - Acquired absence of other specified parts of digestive tract (ICD- 10) History of carpal tunnel release of both wrists ?Z98.890 - Other specified postprocedural states (ICD-10) Pacemaker ?Z95.0 - Presence of cardiac pacemaker (ICD-10) H/O angioplasty ?Z98.62 - Peripheral vascular angioplasty status (ICD-10) H/O vasectomy ?Z98.52 - Vasectomy status (ICD-10) H/O neck surgery ?Z98.890 - Other specified postprocedural states (ICD-10) History of repair of inguinal hernia ?Z98.890 - Other specified postprocedural states (ICD-10) ?Z87.19 - Personal history of other diseases of the digestive system (ICD-10) History of prostatectomy ?Z90.79 - Acquired absence of other genital organ(s) (ICD-10) History of phacoemulsification of cataract of both eyes with intraocular lens implantation ?Z98.41 - Cataract extraction status, right eye (ICD-10) ?Z98.42 - Cataract extraction status, left eye (ICD-10) ?Z96.1 - Presence of intraocular lens (ICD-10) History of cardiac radiofrequency ablation ?Z98.890 - Other specified postprocedural states (ICD-10) History of tonsillectomy ?Z90.89 - Acquired absence of other organs (ICD-10) Social History Smoking status: Former smoker Meds Home Medications and Allergies Home Medications ?Medication ?Instructions ?Recorded ?Confirmed ?Type amlodipine 5 mg tablet 5 mg PO QDAY 10/14/22 02/29/24 History clopidogrel 75 mg tablet (Plavix) 75 mg PO QDAY 10/14/22 02/29/24 History furosemide 20 mg tablet (Lasix) 40 mg PO QDAY 10/14/22 02/21/24 History irbesartan 300 mg tablet (Avapro) 300 mg PO QDAY 10/14/22 02/29/24 History isosorbide mononitrate 30 mg PO QDAY 10/14/22 02/29/24 History latanoprost 0.005 % eye drops 1 drp ophthalmic (eye) QDAY 10/14/22 02/29/24 History loperamide 2 mg capsule 2 mg PO Q2H PRN loose stool 10/14/22 02/29/24 History (Anti-Diarrheal (loperamide)) multivitamin (Daily Multi-Vitamin 1 tab PO QDAY 10/14/22 02/29/24 History tablet) omeprazole 40 mg capsule,delayed 40 mg PO QDAY 10/14/22 02/29/24 History release rosuvastatin 10 mg tablet (Crestor) 10 mg PO QDAY 10/14/22 02/29/24 History sotalol 40 mg PO BID 10/14/22 02/29/24 History tizanidine 4 mg tablet 4 mg PO BEDTIME 10/14/22 02/29/24 History TRANSDERMAL THERAPEUTICS QID PRN pain 09/15/23 History albuterol sulfate 90 mcg/actuation 2 inh inhalation Q8H PRN shortness 09/15/23 09/15/23 History aerosol inhaler of breath or wheezing famotidine 20 mg tablet 20 mg PO DAILY 09/15/23 02/29/24 History metformin 500 mg tablet,extended 500 mg PO DAILY 09/15/23 02/29/24 History release 24 hr psyllium husk 0.4 gram capsule 0.4 g PO DAILY 09/15/23 02/21/24 History (Metamucil) zonisamide 25 mg capsule 25 mg PO BID 09/15/23 02/29/24 History dorzolamide 2 % eye drops 1 drp ophthalmic (eye) TID 02/21/24 02/29/24 History Allergies Allergy/AdvReac Type Severity Reaction Status Date / Time adhesive Allergy Mild Unknown Verified 02/29/24 10:40 niacin (From Niaspan Allergy Mild itch Verified 02/29/24 10:40 Extended-Release) Exam Constitutional Documenting provider has reviewed patient's vital signs: yes Common normals: no apparent distress, oriented x3, healthy appearing, alert and well nourished General appearance: cooperative HENVT Common normals: normocephalic, hearing grossly normal bilaterally and moist oral mucous membranes Head and scalp: normocephalic Eye Common normals: PERRL Pupil: PERRL Neck & C-Spine Common normals: full ROM General: normal visual inspection Cervical spine: cervical ROM abnormal, pain with cervical ROM and cervical spine tenderness Chest Common normals: inspection of chest normal Respiratory Common normals: normal respiratory effort, no retractions and no use of accessory muscles Back & Pelvis Lumbar spine/lower back: ROM limited, pain with ROM and straight leg raise negative bilaterally Other: positive facet loading L2-S1 negative radiculopathy sensation intact BLE Extremity Common normals: normal to inspection and full ROM Right lower extremity: hip joint Other: positive leg roll/internal rotation of left hip negative tenderness over right GTB, no pain over IT band Neuro Common normals: oriented x3, CN's II-XII intact bilaterally, moves all extremities, no focal motor deficits, no sensory deficits noted and deep tendon reflexes 2+ bilaterally Sensorium/orientation: alert Gait (neuro): antalgic Motor exam: strength 5/5 throughout and no movement abnormalities noted Psych Common normals: mental status grossly normal, thought process normal, cooperative, affect normal, speech normal and activity/motor behavior normal Speech: normal speech Thought process: normal thought process Results Additional Findings Additional findings: If on a controlled substance or opioids, I have checked an [place] report on this patient and there are no aberrancies noted in the prescribing history.??If on a controlled substance or opioid a drug screen was completed and reviewed within the last year, and if there has not been a drug screen completed we ordered one today to monitor higher risk, state monitored pain medication use. As part of providing excellent, safe, comprehensive care, the following was completed at our patient's visit: 1. A medication reconciliation and review to ensure accurate knowledge of current/active medications, including asking our patients to inform us about any jzdl-smy-utiyzxn medications or herbal remedies/nutritional supplements/alternative remedies. 2. A review to specifically ensure our patients have had annual screening for screening for depression, screening for tobacco use, and screening for unhealthy alcohol use. For concerning screenings had a discussion with the patient, provided patient education, and recommended follow-up with primary care provider when appropriate. If patient noted with a risk of falling, they received education on strength, gait, and balance training to prevent future risk of falling. Assessment and Plan Assessment and Plan (1) Cervical spondylosis: (2) Chronic neck pain: (3) Failed cervical fusion: (4) Lumbar spondylosis: (5) Muscle spasm: Plan stop transdermal therapeutics cream3, start 8a TID to affected areas continue current medications continue HEP as tolerated f/u 6 months, sooner if needed
== END 2024-03-22 08:36 | disposition home or self-care (01) ==
LOC: PM 08:35
PROVIDERS: PCP Family Medicine; Visit Provider Nurse Practitioner
DX: M47.812 Spondylosis without myelopathy or radiculopathy, cervical region (principal); M54.2 Cervicalgia; M47.816 Spondylosis without myelopathy or radiculopathy, lumbar region; M62.838 Other muscle spasm; Z98.1 Arthrodesis status
CPT/HCPCS: G0463

== ENCOUNTER 2024-05-09 06:45 | Outpatient (OUT) | payer MEDICARE, SELFPAY ==
--- OUTSIDE RECORDS SUMMARY | 2024-05-09 06:49 | XMS_ITS | CCD ---
Author Organization [facility] CliniSyut Care Team Providers Care Button Broacher Name Role Phone ELTAHAWBrendon, EHAB A Admitting Unavailable ELTAHAWY EHAB Lyssa Attending Unavailable SABINO COOPER Referring Unavailable SABINO COOPER Primary Care Unavailable Param Cosme Attending Provider [phone] Sabino Cooper Primary Care Provider Param Cosme Attending Provider [phone] Sabino Cooper Primary Care Provider Leti Garcia Unavailable MG LONDON Primary Care Physician KAT Westfall Attending Provider MD Mg London Primary Care Provider KAT Westfall Attending Provider MD Mg [place] Primary Care Provider MD Erwin Salazar Attending Provider [phone] Erwin Salazar Unavailable MARCE Hardy Attending Provider KAT Westfall Other Provider Sabino Cooper Primary Care Physician Griselda Pennington Unavailable ALANNA HARDY Admitting Unavailable ALANNA HARDY Attending Unavailable LITA, DR MG Omalley Primary Care Unavailable CLINTON, DR ERWIN Bell Consulting Unavailable ALANNA HARDY [...] SONA Attending Unavailable ABDON, SONA Admitting Unavailable NADSILVIA, DR MG Omalley Primary Care Unavailable LAZO ., SONNY Consulting Unavailable NADSILVIA, DR MG Omalley Primary Care Unavailable CLANCY ., DR AMANDA Fish Attending Unavailable CLANCY ., DR AMANDA Fish Admitting Unavailable CLANCY ., DR AMANDA Fish Admitting Unavailable LAZO ., SONNY Consulting Unavailable CLANCY ., DR AMANDA Fish Attending Unavailable NADERESon, DR MG Omalley Primary Care Unavailable LAKSHMIPATHY ., NARENDRANATH Consulting Lisset vailable LAKSHMIPATHY ., NARENDRANATH Attending Lisset vailable LAKSHMIPATHY ., NARENDKENDELLATH Admitting Lisset vailable NADSILVIA, DR MG Omalley [...] SONNY Consulting Unavailable CLANCY ., DR AMANDA Fish Admitting Unavailable CLANCY ., DR AMANDA Fish Attending Unavailable NADERESon, DR MG Omalley Primary Care Unavailable ALANNA HARDY Admitting Unavailable HIGHLELLA, ALANNA Araiza Attending Unavailable NADERER, DR MG Omalley Primary Care Unavailable HIGHLANDER, ALANNA Araiza Attending Unavailable HIGHLELLA, ALANNA Araiza Admitting Unavailable NADERER, DR MG Omalley Primary Care Unavailable MISC, DR BECKER Attending Unavailable MAGYSHAIKH Jane SULLIVAN Consulting Unavailable MISC, DR BECKER Admitting Unavailable NADERER, DR MG Omalley Primary Care Unavailable CLINTON, DR ERWIN Bell Consulting Unavailable ELTAHAWY, DR CAO Admitting Unavailable ELTAHAWY, DR CAO Attending Unavailable NADERER, DR MG Omalley Primary Care Unavailable ELTAHAWY, DR CAO Consulting Unavailable REINECK, DR EDY Da Silva Admitting Unavailabl e NADERER, DR MG Omalley Primary Care Unavailable REINECK, DR EDY Da Silva Consulting Unavailabl e REINECK, DR EDY Da Silva Attending Unavailabl e NEFCY, ALANNA Consulting Unavailable BRITTON, OSMAR Admitting Unavailable NADERER, DR MG Omalley Primary Care Unavailable BRITTON, OSMAR Attending Unavailable HIGHLANDER, ALANNA Araiza Attending Unavailable HIGHLANDER, ALANNA Araiza Admitting Unavailable NADERER, DR MG Omalley Primary Care Unavailable Boy, DAISHA Gisele Attending Provider MD Sabino Cooper Primary Care Provider Boy Gisele Unavailable MD Erwin Salazar Attending Provider MD Sabino Cooper Primary Care Provider MD Inez Henderson Attending Provider Esme Brunson NP Gisele Attending Provider FABIO Ruby Attending Provider [phone] Flori GARZA, [facility] Unavailable [phone] MD Sabino Cooper Primary Care Provider DAISHA Brunson Gisele Attending Provider Clarissa Corado MD Unavailable Sabino Cooper MD Primary Care Provider Flori GARZA, [facility] A. Unavailable MD Sabino Cooper Primary Care Provider MD Luc Ham Jr Attending Provider Luc Guo Jr Admitting Unavailable Paramjits Jr Luc H Attending Unavailable Sabino Cooper Primary Care Unavailable Sabino Cooper Primary Care Unavailable Gisele Brunson Admitting Unavailable Boy Gisele Attending Unavailable Luc Ham MD Unavailable [phone] Sabino Cooper MD Primary Care Provider MISSY WESTFALL Attending Unavailable LUC HAM Attending Unavailable SABINO COOPER Referring Unavailable TIMMISLUC Referring Unavailable MISSY WESTFALL Attending Unavailable TIMMISLUC Attending Unavailable TIMMISLUC Attending Unavailable LUC HAM Attending Unavailable LUC HAM Referring Unavaila ble SABINO COOPER Primary Care Unavailable VAISHALI PRINGLE Attending Unavailable Unavailable Primary Care Provider Unavailabl e Sabino Cooper Attending Unavailable Sabino Cooper Admitting Unavailable Sabino Cooper Attending Unavailable Sabino Cooper Attending Unavailable Sabino Cooper Attending Unavailable Inez eHnderson Talal Attending Unavaila ble Sarmini, Wiley Talal Referring Unavaila ble Sarmini, Wiley Talal Admitting Unavaila ble Sarmini, Wiley Talal Referring Unavaila ble Sarmini, Wiley Talal Admitting Unavaila ble Sarmini, Wiley Talal Attending Unavaila ble Sabino Cooper Attending Unavailable Sabino Cooper Admitting Unavailable Flori Anjali A Admitting Unavailable Anjali Ruby Attending Unavailable Flori, Anjali A Attending Unavailable Flori, Anjali A Attending Unavailable Flori, Anjali A Attending Unavailable Sarminclive, Inez Castanoal Attending Unavaila ble Lilyminclive, Inez Castanoal Attending Unavaila ble Sabino Cooper Attending Unavailable Sabino Cooper Attending Unavailable Sabino Cooper Attending Unavailable Sabino Cooper Attending Unavailable Sabino Cooper Attending Unavailable Sabino Cooper Attending Unavailable STACEY PATEL Referring Unavailable JORGE, STACEY Referring Unavailable STACEY PATEL Attending Unavailable JORGE, STACEY Referring Unavailable JORGE, STACEY Referring Unavailable MARY SCHNEIDER Attending Unavailable MARY SCHNEIDER Referring Unavailable SABINO COOPER JACKELYN Primary [facility] Unavailable MARY SCHNEIDER Admitting Unavailable MARY SCHNEIDER Attending Unavailable ORLANDO SABINO JACKELYN Primary Care Unavailable MARY SCHNEIDER Admitting Unavailable MARY SCHNEIDER Attending Unavailable [place]LANDO SABINO [facility] Primary Care Unavailable Unavailable Unavailable Unavailable Allergies Allergy Classification Reported Allergen(s) Allergy Type Date of Onset Reaction(s) Facility (3 sources) Desonide Drug Allergy 0 [facility] Repository (1 source) Niacin Drug Allergy 0 [facility] Repository (11 sources) Adhesive agent; Translations: [adhesive] Drug allergy 4 [facility] (20 sources) Niacin; Translations: [niacin] Drug Allergy 9 hives, Itching (finding), Itching, Unknown [facility] [place] (16 sources) Adhesive bandage; Translations: [Adhesive Bandage] Allergy to substance Eruption of skin (disorder) [facility] [place] (5 sources) Niacin Drug Allergy [facility] Other (2 sources) Niaspan Starter Pack Drug allergy (disorder) 8 [facility] Repository (9 sources) Adhesive Tape-Silicones; Translations: [ADHESIVE TAPE-SILICONES] Drug Allergy 9 [facility] (15 sources) Niacin Drug Allergy 9 Itching, Unknown [facility] (15 sources) Wound Dressing Adhesive Drug Allergy 3 Unknown [facility] (1 source) Niacin Drug Allergy 4 [facility] Repository (1 source) Niacin; Translations: [Niaspan ER] Drug Allergy [facility] Repository Medications Current Medications Medication Drug Class(es) Dates Sig (Normalized) Sig (Original) acetaminophen 325 mg / butalbital 50 mg / caffeine 40 mg oral capsule (20 sources) Barbiturate, Central Nervous System Stimulant, Methylxanthine Start: 11-29-2023 take 1 capsule by mouth every four hours for headache Esgic 325 mg-50 mg-40 mg oral capsule 1 cap(s), Oral, q4hr for headache, 60 cap(s), Refill(s) 1, [id number], 160, cm, 11/29/23 10:29:00 EDT, Height/Length Dosing, 78.5, kg, 11/29/23 10:29:00 EDT, Weight Dosing Start Date: 11/29/23 Status: Ordered Start: 12-15-2022 take 1 tablet by peggy th every four hours as needed xghwjatyez-prwohydaqpexz-mkyt 50-325-40 mg tablet Take 1 tablet by mouth every 4 hours if needed. 12/15/2022 Active Start: 12-15-2022 APAP/butalbita l/caffeine 325 mg-50 mg-40 mg Tab Refill(s) 0, Headache Start Date: 12/15/22 Status: Ordered Comment on above: Take 1 tablet by peggy th every 4 hours as needed. Tylenol PM (17 sources) Histamine-1 Receptor Antagonist Start: 11-08-2023 take 1 tablet by mouth once daily at bedtime Tylenol PM Oral, Once a day (at bedtime), Refill(s) 0, 250mg- 2 tabs at HS Start Date: 11/08/23 Status: Ordered take 1 tablet by peggy th every twenty-four hours as needed diphenhydrAMINE-acetaminophen (Tylenol P M) 25-500 mg per tablet Take 1 tablet by mouth once daily as needed. Active take 25-500 mg by mo uth once as needed diphenhydrAMINE-acetaminophen (Tylenol P M) 25-500 MG per tablet Take 1 tablet by mouth as needed at bedtime for sleep. Active Albuterol (Eqv-ProAir HFA) 90 mcg/inh inhalation aerosol (13 sources) Start: 11-09-2022 Albuterol (Eqv-ProAir HFA) 90 mcg/inh inhalation aerosol See Instructions, 17 gm, Refill(s) 6, USE 2 INHALATIONS BY MOUTH EVERY 6 HOURS, [facility] ([facility]), 163, cm, 11/04/22 15:03:00 EDT, Height/Length Dosing, 76, kg, 11/04/22 15:03:00 EDT, Weight Dosing Start Date: 11/09/22 Status: Ordered amLODIPine 5 mg oral tablet (20 sources) Dihydropyridine Calcium Channel Gabo Start: 04-24-2020 take 1 tablet by mouth once daily amLODIPine 5 mg Tab 5 mg = 1 tab(s), Oral, Daily, # 90 tab(s), Refills(s) 1, Pharmacy: [id number], 163, cm, 05/31/23 10:14:00 EST, Height/Length Dosing, 80.2, kg, 05/31/23 10:14:00 EST, Weight Dosing Start Date: 05/31/23 Status: Ordered Comment on above: Take 5 mg by mouth. {1 (Ascorbic Acid 7540 MG / POLYETHYLENE GLYCOL 3350 86125 MG / Potassium Chloride 1200 MG / Sodium Ascorbate 82637 MG / Sodium Chloride 3200 MG Powder for Oral Solution) / 1 (POLYETHYLENE GLYCOL 3350 329606 MG / Potassium Chloride 1000 MG / Sodium Chlori (5 sources) Osmotic Laxative, Vitamin C Start: 12-15-2022 Plenvu oral powder for reconstitution See Instructions, 1 EA, Refill(s) 0, Prior to colonoscopy., [facility] #[id number], 163, cm, 12/15/22 12:03:00 EDT, Height/Length Dosing, 73.3, kg, 12/15/22 12:03:00 EDT, Weight Dosing Start Date: 12/15/22 Status: Ordered Aspir 81 (15 sources) Start: 04-24-2020 take 81 mg by mouth once daily Aspir 81 81 mg, Oral, Daily, Refills(s) 0, Prophylaxis Start Date: 04/24/20 Status: Ordered Start: 04-24-2020 take 1 mg by mouth once daily Aspir 81 mg, Oral, Daily, Refills(s) 0, Prophylaxis Start Date: 04/24/20 Status: Ordered Aspir-81 (5 sources) Aspir-81 Active aspirin 81 mg delayed release oral tablet (20 sources) Platelet Aggregation Inhibitor, Nonsteroidal Anti-inflammatory Drug take 1 tablet by mouth once daily aspirin 81 mg EC tablet Take 1 tablet (81 mg) by mouth once daily. Active Comment on above: Take 81 mg [...] procedure, # 10 cap(s), Refills(s) 0, Pharmacy: [facility] #[id number], 167, cm, 04/27/22 8:46:00 EST, Height/Length Dosing, 87.1, kg, 04/27/22 8:46:00 EST, Weight Dosing Start Date: 04/27/22 Status: Ordered cholestyramine 4 g/5 g Oral Pwdr (1 source) Start: 023 cholestyramine 4 g/5 g Oral Pwdr 1 packet(s), Oral, TID, 90 EA, Refill(s) 0, [facility] ([facility] ), 167.6, cm, 08/24/22 8:10:00 EDT, Height/Length Dosing, 83.4, kg, 08/24/22 8:10:00 EDT, Weight Dosing Start Date: 08/24/22 Status: Ordered sugar-free cholestyramine resin 4000 mg powder for oral suspension (7 sources) Bile Acid Sequestrant Start: 024 cholestyramine 4 g/5 g Oral Pwdr 5 gram, 1 EA, Oral, BID, 630 gm, Refill(s) 0, one scoop BID 90 day supply, [facility] #[id number], 162, cm, 08/30/23 10:00:00 EDT, Height/Length Dosing, 78.4, kg, 08/30/23 10:00:00 EDT, Weight Dosing Start Date: 09/06/23 Status: Ordered Start: 05-25-2023 End: 08-23-2023 take 4 g by mouth once daily Questran 4 g/9 g oral pow [place] 4 gm, Oral, Daily, X 90 day(s), # 90 packet(s), Refills(s) 0, Pharmacy: [facility] #[id number], 163, cm, 05/25/23 12:33:00 EST, Height/Length Dosing, 79.8, kg, 05/25/23 12:33:00 EST, Weight Dosing Start Date: 05/25/23 Stop Date: 08/23/23 Status: Ordered clopidogrel 75 mg oral tablet (20 sources) [id number] Platelet Inhibitor Start: 04-24-2020 take 1 tablet by mouth once daily Plavix 75 mg Tab 75 mg = 1 tab(s), Oral, Daily, Refills(s) 0, Blood Thinner Start Date: 04/24/20 Status: Ordered Dicyclomine (3 sources) Anticholinergic Dicyclomine HCl Active dorzolamide 20 mg/ml ophthalmic solution (20 sources) Carbonic Anhydrase Inhibitor Start: 07-27-2023 take 1 drop(s) into the eye(s) three times daily dorzolamide (Trusopt) 2 % ophthalmic solution Administer 1 drop into both eyes 3 times a day. 07/27/2023 Active Start: 07-27-2023 Dorzolamide Ac tive DROPS OPHTHALMIC July 27, 2023 12:00am Start: [...] 90 Active famotidine 20 mg oral tablet (20 sources) Histamine-2 Receptor Antagonist Start: 07-27-2023 End: 03-15-2024 take 1 tablet by mouth once daily Pepcid 20 mg Tab 20 mg = 1 tab(s), Oral, Daily, # 90 tab(s), Refills(s) 3, Pharmacy: [facility], 160, cm, 01/10/24 9:43:00 EDT, Height/Length Dosing, 77.8, kg, 01/10/24 9:43:00 EDT, Weight Dosing Start Date: 01/19/24 Status: Ordered Fish Oils (7 sources) Start: 11-04-2022 Stephen-3 Fish O il Oral, Daily, Refills(s) 0, Prophylaxis Start Date: 11/04/22 Status: Ordered Start: 11-04-2022 Stephen-3 Fish O il Oral, Daily, Refills(s) 0 Start Date: 11/04/22 Status: Ordered fluticasone propionate 0.05 mg/actuat metered dose nasal spray (20 sources) Corticosteroid Start: 01-18-2024 fluticasone Na ulises 0.05 mg/inh [place] See Instructions, 16 gm, Refill(s) 0, USE 1 SPRAY IN BOTH NOSTRILS TWICE DAILY, [facility], 160, cm, 01/10/24 9:43:00 EDT, Height/Length Dosing, 77.8, kg, 01/10/24 9:43:00 EDT, Weight Dosing Start Date: 01/18/24 Status: Ordered Start: 08-24-2022 take 1 spray(s) nasa l route once daily fluticasone (Flonase) 50 mcg/actuation nasal spray Administer 1 spray into each nostril once daily. 08/24/2022 Active Start: 08-24-2022 fluticasone (F LONASE) 50 mcg/actuation nasal spray 1 [place]. 08/24/2022 Active Start: 08-24-2022 take 1 spray(s) nasa l route twice daily Flonase 0.05 mg/inh [place] 1 spray(s), Nasal, BID, 16 gram, Refill(s) 0, each nostril, [facility] ([facility] ), 167.6, cm, 08/24/22 8:10:00 [...] for 30 Active Comment on above: 1 [place]. fluticasone 0.05 mg/inh Nasal [place] (1 source) Start: 04-24-2020 fluticasone 0.05 mg/inh Nasal [place] Daily, Refill(s) 0 Start Date: 04/24/20 Status: Ordered furosemide 20 mg oral tablet (20 sources) Loop Diuretic Start: 04-24-2020 take 1 tablet by mouth once daily furosemide (Lasix) 20 MG tablet Indications: Peripheral venous insufficiency TAKE 1 TABLET BY MOUTH DAILY 100 tablet 2 07/13/2023 Active Furosemide Activ e Comment on above: Take 20 mg by mouth. gabapentin 600 mg oral tablet (20 sources) Anti-epileptic Agent Start: 04-24-2020 take 1 [...] peggy th. glimepiride 2 mg oral tablet (6 sources) Sulfonylurea Start: 9 glimepiride (AMARYL) 2 mg tablet Take 2 mg by mouth. 01/19/2019 Active Comment on above: Take 2 mg by mouth. irbesartan 300 mg oral tablet (20 sources) Angiotensin 2 Receptor Gabo Start: 0 take 1 tablet by mouth once daily irbesartan 300 mg Tab 300 mg = 1 tab(s), Oral, Daily, Refills(s) 0, High blood pressure Start Date: 04/24/20 Status: Ordered Comment on above: Take 300 mg by mouth . 24 hr isosorbide mononitrate 30 mg extended release oral tablet (20 sources) Nitrate Vasodilator Start: 4 Isosorbide Mononitrate Active MG PO July 27, 2023 12:00am Start: 04-24-2020 take 30 mg by mouth once daily in the morning isosorbide mononitrate 30 mg, Oral, qAM, Refills(s) 0, High blood pressure Start Date: 04/24/20 Status: Ordered Comment on above: Take 30 mg by mouth. iv contrast (will be provided with radiology test) (3 sources) Start: 4 iv contrast (will be provided with radiology test) Indications: IPMN (intraductal papillary mucinous neoplasm) MRI PANC/VARGAS Inject, intravenously, once for 1 dose. No [...] Refill(s) Start Date: 05/19/23 Status: Ordered Start: 05-19-2023 latanoprost (X alatan) 0.005 % ophthalmic solution Administer 1 drop into both eyes. 05/19/2023 Active Start: 04-24-2020 latanoprost op hthalmic qPM, Refill(s) 0, Dry eyes Start Date: 04/24/20 Status: Ordered Start: 04-24-2020 latanoprost op hthalmic qPM, Refill(s) 0 Start Date: 04/24/20 Status: Ordered take 1 drop(s) into the eye(s) at bedtime latanoprost (Xalatan) 0.005 % ophthalmic solution 1 drop at bedtime. Active take 1 drop(s) into the eye(s) once daily at bedtime latanoprost (XALATAN) 0.005 % ophthalmic solution 1 Drop daily at bedtime. Active Latanoprost 0.00 5 % Ophthalmic for 90 Active Latanoprost 0.00 5 % Ophthalmic for 90 Active Comment on above: 1 Drop daily at bedt olivia. loperamide hydrochloride 2 mg oral tablet (20 sources) Opioid Agonist Start: 02-21-2021 take 1 tablet by mouth every four hours loperamide 2 mg Tab 2 mg = 1 tab(s), Oral, q4hr, Refills(s) 0, Diarrhea Start Date: 02/21/21 Status: Ordered take 1 tablet by peggy th four times daily as needed loperamide (Imodium A-D) 2 mg tablet Ray e 1 tablet (2 mg) by mouth 4 times a day as needed. Active Loperamide A-D A ctive Comment on above: Take 2 mg by mouth. Magnesium (5 sources) Magnesium Active metFORMIN hydrochloride 500 mg oral tablet (20 sources) Biguanide Start: 05-31-2023 take 1 tablet by mouth once daily metformin 500 mg ER Tab 500 mg = 1 tab(s), Oral, Daily, # 180 tab(s), Refills(s) 0, Pharmacy: [facility] #[id number], 163, cm, 05/31/23 10:14:00 EST, Height/Length Dosing, 80.2, kg, 05/31/23 10:14:00 EST, Weight Dosing Start Date: 05/31/23 Status: Ordered Start: 05-18-2023 take 1 tablet by peggy th twice daily metFORMIN XR (Glucophage-XR) 500 MG 24 hr tablet Indications: Type 2 diabetes mellitus with hyperglycemia, without long-term current use of insulin ([facility]) TAKE 1 TABLET BY MOUTH TWICE DAILY 180 tablet 3 05/18/2023 Active Start: 04-24-2020 take 1 mg by mouth t wice daily metformin 500 mg ER Tab mg tab(s), Oral, BID, Refills(s) 0, High blood sugar Start Date: 04/24/20 Status: Ordered take 1 tablet by peggy th once daily metFORMIN XR 500 mg 24 hr tablet Take 1 tablet (500 mg) by mouth once daily. Active Comment on above: Take 500 mg by mouth . methylPREDNISolone 4 mg oral tablet (4 sources) Corticosteroid Start: 023 Medrol 4 MG as directed Orally as directed for 6 days September, Active [facility] Medication (3 sources) Start: [facility] Medication Transdermal Therapeutics up to four times per day: Meloxicam 0.5%/ Doxepin 3%/ Amantidine 3%/Dextromethorpha n 2%/ Lidocaine 2% Start Date: 11/08/23 Status: Ordered Multiple Vitamin (multivitamin) tablet (15 sources) take 1 tablet by mouth in the morning Multiple Vitamin (multivitamin) tablet Take 1 tablet by mouth in the morning. Active Multivitamin preparation (5 sources) Multivitamin Active multivitamin tablet (1 source) take 1 tablet by mouth once daily multivitamin tablet Take 1 tablet by mouth once daily. Active Multivitamin, Therapeutic w/ Minerals (15 sources) Start: Multivitamin, Therapeutic w/ Minerals Oral, Daily, Refill(s) 0, Prophylaxis Start Date: 04/24/20 Status: Ordered Stephen 3 (5 sources) Stephen 3 Active omega-3 acid ethyl esters (fdc) 1000 mg oral capsule (15 sources) take 1 capsule by mouth in the morning omega-3 acid ethyl esters (Lovaza) 1 g capsule Take 1 g by mouth in the morning and 1 g before bedtime. Active omeprazole 40 mg delayed release oral capsule (20 sources) Proton Pump Inhibitor Start: End: take 1 capsule by mouth once daily omeprazole 40 mg Cap-DR See Instructions, TAKE 1 CAPSULE BY MOUTH DAILY, # 100 cap(s), Refills(s) 2, Pharmacy: [facility], 160, cm, 02/01/24 8:55:00 EDT, Height/Length Dosing, 79, kg, 02/01/24 8:55:00 EDT, Weight Dosing Start Date: 02/21/24 Status: Ordered Start: 04-27-2022 omeprazole Ora l, [...] Sod ium Not-Taking Pantoprazole Sod ium Active psyllium 3400 mg powder for oral suspension (20 sources) Start: 03-10-2023 take 3 capsules by mouth once daily psyllium (Metamucil) 3.4 gram packet Take 3 capsules by mouth once daily. 03/10/2023 Active Start: 03-10-2023 take 3 capsules by m outh once daily psyllium (Metamucil 3 in 1 Daily Fiber) 400 MG capsule Take 3 capsules by mouth Daily 03/10/2023 Active Start: 03-10-2023 Metamucil Refi lls(s) 0, Constipation Start Date: 03/10/23 Status: Ordered Start: 03-10-2023 Metamucil Refi lls(s) 0 Start Date: 03/10/23 Status: Ordered rimegepant 75 mg disintegrating oral tablet (11 sources) Start: 02-16-2024 End: 03-17-2024 Rimegepant Sulfate (Nurtec) 75 MG tablet dispersible Indications: Migraine without aura and without status migrainosus, not intractable (CMS/HCC) 1 tab PO prn migraine. 16 tablet 2 02/16/2024 Active rosuvastatin calcium 10 mg oral tablet (20 sources) HMG-CoA Reductase Inhibitor Start: 04-24-2020 take 1 tablet by mouth once daily rosuvastatin 10 mg Tab See Instructions, TAKE 1 TABLET BY MOUTH DAILY, # 90 tab(s), Refills(s) 3, Pharmacy: [facility] #[id number], 163, cm, 05/31/23 10:14:00 EST, Height/Length Dosing, 80.2, kg, 05/31/23 10:14:00 EST, Weight Dosing Start Date: 05/31/23 Status: Ordered Crestor Active Comment on above: Take 10 mg by mouth. sotalol hydrochloride 80 mg oral tablet (20 sources) Antiarrhythmic Start: 07-27-2023 sotalol (Betapace) 80 mg tablet Take 1 half tablet by mouth 2 times a day. 07/27/2023 Active Start: 04-24-2020 sotalol (BETAP KARRI) 80 mg tablet Take 80 mg by mouth. 04/24/2020 Active Start: 04-24-2020 take 0.5 tablet by m outh twice daily sotalol 80 mg Tab 0.5 tab, Oral, BID, Refills(s) 0, High blood pressure Start Date: 04/24/20 Status: Ordered Comment on above: Take 80 mg by mouth. sucralfate 1000 mg oral tablet (17 sources) Aluminum Complex Start: 12-15-2022 sucralfate (CARAFATE) [...] (20 sources) Central alpha-2 Adrenergic Agonist Start: 1 take 1 tablet by mouth at bedtime tiZANidine (Zanaflex) 4 MG tablet Indications: Chronic bilateral low back pain, unspecified whether sciatica present TAKE 1/2 TO 1 TABLET BY MOUTH AT BEDTIME 90 tablet 2 01/18/2024 Active End: 02-01-2024 tiZANidine HCl (ZANAFLEX) 4 mg capsule Take [...] Active zolpidem tartrate 5 mg oral tablet (5 sources) gamma-Aminobutyric Acid-ergic Agonist zolpidem (AMBIEN) 5 mg tablet Take 5 mg by mouth. Active Comment on above: Take 5 mg by mouth. zonisamide 25 mg oral capsule (20 sources) Anti-epileptic Agent Start: 4 Zonisamide Active MG PO July 27, 2023 12:00am Start: 02-15-2023 take 1 capsule by mo [facility] [place] twice daily zonisamide (Zonegran) 25 MG capsule Indications: Cervical radiculopathy TAKE 1 CAPSULE BY MOUTH TWICE DAILY 180 capsule 3 09/20/2023 Active Completed/Discontinued Medications Medication Drug Class(es) Dates [...] abdominal pain; Translations: [Right flank pain] Onset: 2 Resolved: 4 04-25-2020 Episodic Aortic; peripheral; and visceral artery aneurysms (18 sources) Ectasia of thoracic aorta; Translations: [Thoracic aortic ectasia] Onset: 4 11-08-2023 Chronic Comment on above: added per 11/05/2023 query response. 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, unspecified] Onset: 4 04-07-2024 Chronic Cancer of prostate (15 sources) Malignant tumor of prostate; Translations: [Malignant neoplasm of prostate] Onset: 2 01-27-2024 Chronic Cancer of prostate (20 sources) History of malignant neoplasm of prostate; Translations: [Personal history of malignant neoplasm of prostate] Onset: 2 03-21-2021 Episodic Cardiac dysrhythmias (20 sources) Ventricular tachycardia; Translations: [Ventricular tachycardia] Onset: 2 07-27-2023 Chronic Conditions associated with dizziness or vertigo (2 sources) Vertigo; Translations: [Dizziness and giddiness] 02-16-2024 Episodic Conduction disorders (20 sources) Cardiac pacemaker in situ; Translations: [Presence of cardiac pacemaker] Onset: 1 04-24-2020 Chronic Coronary atherosclerosis and other heart disease (20 sources) Coronary arteriosclerosis; Translations: [Atherosclerotic heart disease of [place] coronary artery without angina pectoris] Onset: 9 [...] with HLD p er OP CDI policy. Diseases of mouth; excluding dental (8 sources) Ulcer of mouth; Translations: [Other forms of stomatitis] Onset: 4 03-08-2024 Episodic Disorders of lipid metabolism (20 sources) Hypercholesterolemia; Translations: [Pure hypercholesterolemia, unspecified] Onset: 2 04-24-2020 Chronic Disorders of teeth and jaw (2 sources) Ulceration of gingivae; Translations: [Other specified disorders of gingiva and edentulous alveolar ridge] 03-29-2024 Episodic Diverticulosis and diverticulitis (20 sources) Diverticular disease; Translations: [Diverticulosis of intestine, part unspecified, without perforation or abscess without bleeding] Onset: 4 06-25-2023 Chronic Esophageal disorders (20 sources) Gastroesophageal reflux disease with apnea; Translations: [Gastro-esophageal reflux disease without esophagitis] Onset: 3 04-24-2020 Chronic Essential hypertension (20 sources) Hypertensive disorder; Translations: [Essential hypertension] Onset: 2 04-24-2020 Chronic Gastroduodenal ulcer (except hemorrhage) (20 sources) Peptic ulcer; Translations: [Peptic ulcer, site unspecified, unspecified as acute or chronic, without hemorrhage or perforation] Onset: 2 Resolved: 4 10-31-2020 Chronic Genitourinary symptoms and ill-defined conditions (20 sources) Incontinence; Translations: [Incontinence without sensory awareness] Onset: 4 Resolved: 4 04-27-2022 Chronic Glaucoma (20 sources) Glaucoma; Translations: [Unspecified glaucoma] Onset: 2 04-24-2020 Chronic Headache; including migraine (19 sources) Migraine; Translations: [Migraine, unspecified, not intractable, without status migrainosus] Onset: 2 01-27-2024 Chronic Heart valve disorders (20 sources) Aortic valve regurgitation; Translations: [Nonrheumatic aortic (valve) insufficiency] Onset: 9 01-27-2024 Chronic Hemorrhoids (20 sources) Hemorrhoids; Translations: [Unspecified hemorrhoids] Onset: 4 06-25-2023 Episodic Joint disorders and dislocations; trauma-related (15 sources) Derangement of right knee; Translations: [Unspecified [...] 04-24-2020 Chronic Other aftercare (1 source) Other [facility] (current) drug therapy; Translations: [OTH RAMP JOCKEY CURRENT DRUG THERAPY] Onset: 3 Episodic Other aftercare (1 source) long-term (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; Translations: [RAMP JOCKEY CURRENT USE OF ASPIRIN] Onset: 3 Episodic Other aftercare (1 source) long-term (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 of antithrombotics/antipl atelets; Translations: [FCI ANTITHROMBOT/ANTIPLATL ETS] Onset: 3 Episodic Other aftercare (1 source) 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; Translations: [FCI USE ORAL HYPOGLYCEMIC DX] Onset: 3 Episodic Other and unspecified benign neoplasm (20 sources) History of polyp of colon; Translations: [Personal history of colonic polyps] Onset: 4 Episodic Other and unspecified benign neoplasm (18 sources) Polyp of colon; Translations: [Polyp of colon] Onset: 4 06-25-2023 Episodic Other bone disease and musculoskeletal deformities (15 sources) Osteochondritis dissecans of right ankle; Translations: [Osteochondritis dissecans, right ankle and joints of right foot] Onset: 4 01-27-2024 Chronic Other circulatory disease (1 source) Raynaud's syndrome without gangrene; Translations: [RAYNAUDS SYNDROME WITHOUT GANGRENE] Onset: 2 Chronic Other connective tissue disease (15 sources) Disorder of musculoskeletal system; Translations: [Other specified disorders of synovium, right ankle and foot] Onset: 4 01-27-2024 Episodic Other diseases of veins and lymphatics (15 sources) Peripheral venous insufficiency; Translations: [Venous insufficiency (chronic) (peripheral)] Onset: 4 01-27-2024 Episodic Other ear and sense organ disorders (15 sources) Hearing loss; Translations: [Unspecified hearing loss, unspecified ear] Onset: 2 01-27-2024 Chronic Other ear and sense organ disorders (1 source) Impacted cerumen, bilateral; Translations: [Impacted cerumen] 07-27-2023 Episodic Other gastrointestinal disorders (1 source) Intestinal malabsorption; 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] Onset: 4 Chronic Other gastrointestinal disorders (15 sources) Non-infective diarrhea; 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] Onset: 4 01-27-2024 Chronic Other gastrointestinal disorders (1 source) Heartburn 10-31-2020 Episodic Other gastrointestinal disorders (6 sources) Hard stool 12-15-2022 Episodic Other gastrointestinal disorders (20 sources) Urgent desire for stool; Translations: [Fecal urgency] Onset: 3 Resolved: 4 12-15-2022 Episodic Other gastrointestinal disorders (1 source) Digestive system finding; Translations: [Other specified symptoms and signs involving the digestive system and abdomen] Onset: 3 Episodic Other gastrointestinal disorders (20 sources) Irregular bowel habits; Translations: [Other specified symptoms and signs involving the digestive system and abdomen] Onset: 3 02-25-2023 Episodic Other gastrointestinal disorders (2 sources) Abnormal feces; Translations: [Other fecal abnormalities] Onset: 3 Episodic Other gastrointestinal disorders (3 sources) Loose stool 03-10-2023 Episodic Other gastrointestinal disorders (1 source) Non-infective diarrhea 05-25-2023 Episodic Other gastrointestinal disorders (3 sources) Swollen abdomen; Translations: [Abdominal distension (gaseous)] Onset: 4 Episodic Other gastrointestinal disorders (20 sources) Abdominal bloating; Translations: [Abdominal distension (gaseous)] Onset: 4 Resolved: 4 06-25-2023 Episodic Other gastrointestinal disorders (6 sources) Diarrhea 06-25-2023 Episodic Other lower respiratory disease (3 sources) Apnea, not elsewhere classified Episodic Other nervous system disorders (20 sources) Polyneuropathy associated with another disorder; Translations: [Polyneuropathy in diseases classified elsewhere] Onset: 4 07-27-2023 Chronic Other nervous system disorders (1 source) 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 Other nervous system disorders (1 source) Other chronic pain; Translations: [OTHER CHRONIC PAIN] Onset: 2 Chronic Other nervous system disorders (15 sources) Carpal tunnel syndrome of left wrist; Translations: [Carpal tunnel syndrome, left upper limb] Onset: 4 01-27-2024 Chronic Other nervous system disorders (15 sources) Carpal tunnel syndrome of right wrist; Translations: [Carpal tunnel syndrome, right upper limb] Onset: 4 01-27-2024 Chronic Other nervous system disorders (15 sources) Neuropathy; Translations: [Polyneuropathy, unspecified] Onset: 2 01-27-2024 Chronic Other nervous system disorders (15 sources) Normal pressure hydrocephalus; Translations: [(Idiopathic) normal pressure hydrocephalus] Onset: 2 01-27-2024 Chronic Other nervous system disorders (2 sources) Polyneuropathy; Translations: [Polyneuropathy, unspecified] 02-16-2024 Chronic Other nervous system disorders (14 sources) Numbness of hand 08-24-2022 Episodic Other nervous system disorders (15 sources) Paresthesia of skin; Translations: [Disturbance of skin sensation] Onset: 4 01-27-2024 Episodic Other non-traumatic joint disorders (4 sources) Other instability, right ankle; Translations: [OTHER INSTABILITY RIGHT ANKLE] Onset: 3 Episodic Other non-traumatic joint disorders (15 sources) Arthralgia of the ankle and/or foot; Translations: [Pain in right ankle and joints of right foot] Onset: 4 01-27-2024 Episodic Other nutritional; endocrine; and metabolic disorders (20 sources) Body mass index 30+ - obesity; Translations: [Obesity, unspecified] Onset: 2 Resolved: 4 02-21-2021 Chronic Other nutritional; endocrine; and metabolic disorders (18 sources) Overweight in adulthood with body mass index of 25 or more but less than 30; Translations: [Body mass index (BMI) 29.0-29.9, adult] Onset: 4 11-08-2023 Episodic Other screening for suspected conditions (not mental disorders or infectious disease) (1 source) Screening for malignant neoplasm of colon done; Translations: [Encounter for screening for malignant neoplasm of colon] Onset: 3 Episodic Other skin disorders (20 sources) Mass of neck; Translations: [Localized swelling, mass and lump, neck] Onset: 3 02-15-2023 Episodic Other upper respiratory infections (1 source) Acute upper respiratory infection, unspecified; Translations: [Acute upper respiratory infections of unspecified site] 07-27-2023 Episodic Pancreatic disorders (not diabetes) (20 sources) [...] DIS 2019] Onset: 3 Residual codes; unclassified (15 sources) Sleep apnea 04-24-2020 Chronic Residual codes; unclassified (20 sources) Obstructive sleep apnea syndrome; Translations: [Obstructive sleep apnea (adult) (pediatric)] Onset: 2 07-27-2023 Chronic Residual codes; unclassified (20 sources) Daytime somnolence; Translations: [Other hypersomnia] Onset: 4 07-27-2023 Chronic Residual codes; unclassified (5 sources) Obstructive sleep apnea (adult) (pediatric); Translations: [Obstructive sleep apnea (adult)(pediatric)] Chronic Residual codes; unclassified (1 source) Other hypersomnia Chronic Residual codes; unclassified (1 source) Sleep apnea, unspecified; Translations: [SLEEP APNEA UNSPECIFIED] Onset: 3 Chronic Residual codes; unclassified (17 sources) Central sleep apnea syndrome; 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] Onset: 4 09-02-2023 Chronic Residual codes; unclassified (1 source) Primary central sleep apnea; Translations: [Unspecified sleep apnea] 09-02-2023 Chronic Residual codes; unclassified (1 source) Obstructive sleep apnea (adult)(pediatric); Translations: [Obstructive sleep apnea (adult) (pediatric)] Onset: 4 Chronic Residual codes; unclassified (1 source) Acquired absence of other genital organ(s); Translations: [ACQUIRED ABSENCE OTH GENITAL ORGANS] Onset: 3 Episodic Residual codes; unclassified (20 sources) FH: Stomach cancer; Translations: [Family history of malignant neoplasm of digestive organs] Onset: 3 12-15-2022 Episodic Secondary malignancies (2 sources) Secondary malignant neoplasm of neck; Translations: [Secondary malignant neoplasm of other specified sites] 03-08-2024 Chronic Secondary malignancies (3 sources) 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 and neck lymph node; Translations: [Secondary and unspecified malignant neoplasm of lymph nodes of head, face and neck] 03-29-2024 Chronic Spondylosis; intervertebral disc disorders; other back problems (20 sources) Spondylosis without myelopathy or radiculopathy, lumbar region; Translations: [Other intervertebral disc degeneration, lumbar region] Onset: 2 Chronic Comment on above: noted in 09/15/2023 Pain Management Consult note page 5. added per OP CDI policy. Substance-related disorders (20 sources) Hypnotic dependence; Translations: [Sedative, hypnotic or anxiolytic dependence, uncomplicated] Onset: 4 Resolved: 4 Chronic Unclassified (4 sources) LOW BACK PAIN, UNSPECIFIED; Translations: [LOW BACK PAIN, UNSPECIFIED] Onset: 3 Unclassified (6 sources) Patient encounter status 02-25-2023 Urinary tract infections (1 source) Urinary tract infectious disease 04-27-2022 Episodic Viral infection (10 sources) Disease caused by 2019-nCoV; Translations: [COVID-19] Onset: 3 Past or Other Problems Problem Classification Problem Date Documented Da te Episodic/Chronic Biliary tract disease (15 sources) Gallstone; Translations: [Calculus of gallbladder without cholecystitis without obstruction] Onset: 04-03-2022 Resolved: 01-27-2024 01-27-2024 Episodic Inflammatory conditions of male genital organs (20 sources) Prostatitis; Translations: [Inflammatory disease of prostate, unspecified] Onset: 04-14-2023 04-27-2022 Episodic Mycoses (15 sources) Onychomycosis; Translations: [Tinea unguium] Onset: 01-27-2024 Resolved: 01-27-2024 01-27-2024 Episodic Nonspecific chest pain (20 sources) Chest wall pain; Translations: [Other chest [...] Onset: 04-20-2022 Episodic Other connective tissue disease (15 sources) Pain in limb; Translations: [Pain in unspecified limb] Onset: 01-27-2024 Resolved: 01-27-2024 01-27-2024 Episodic Other gastrointestinal disorders (4 sources) Diarrhea, unspecified; Translations: [DIARRHEA UNSPECIFIED] Onset: 03-06-2022 Episodic Other gastrointestinal disorders (20 sources) Dysphagia; Translations: [Dysphagia, unspecified] Onset: 01-12-2023 12-15-2022 Episodic Other gastrointestinal disorders (15 sources) Smearing feces; Translations: [Fecal smearing] Onset: 04-03-2022 Resolved: 01-27-2024 01-27-2024 Episodic Other nervous system disorders (15 sources) Entrapment of left ulnar nerve; Translations: [Lesion of ulnar nerve, left upper limb] Onset: 01-27-2024 Resolved: 01-27-2024 01-27-2024 Chronic Other nervous system disorders (15 sources) Entrapment of right ulnar nerve; Translations: [Lesion of ulnar nerve, right upper limb] Onset: 01-27-2024 Resolved: 01-27-2024 01-27-2024 Chronic Other nervous system disorders (1 source) Unspecified disturbances of skin sensation; Translations: [UNS DISTURBANCES OF SKIN SENSATION] Onset: 04-20-2022 Episodic Other nervous system disorders (15 sources) Unsteady when standing; Translations: [Unsteadiness on feet] Onset: 01-27-2024 Resolved: 01-27-2024 01-27-2024 Episodic Other non-epithelial cancer of skin (15 sources) Malignant neoplasm of skin; Translations: [Unspecified malignant neoplasm of skin, unspecified] Onset: 04-03-2022 01-27-2024 Episodic Other skin disorders (4 sources) Nail dystrophy; Translations: [NAIL DYSTROPHY] Onset: 06-11-2022 Episodic Other skin disorders (1 source) Other nail disorders; Translations: [OTHER NAIL DISORDERS] Onset: 06-16-2022 Episodic Otitis media and related conditions (19 sources) Otitis media; Translations: [Otitis media, unspecified, unspecified ear] Onset: 04-14-2023 Resolved: 01-27-2024 02-15-2023 Episodic Residual codes; unclassified (15 sources) Insomnia; Translations: [Insomnia, unspecified] Onset: 04-03-2022 01-27-2024 Episodic Residual codes; unclassified (15 sources) Edema of lower extremity; Translations: [Localized edema] Onset: 04-26-2019 01-27-2024 Episodic Skin and subcutaneous tissue infections (20 sources) Cellulitis of left toe; Translations: [Cellulitis and abscess of toe, unspecified] Onset: 01-27-2024 Resolved: 01-27-2024 01-27-2024 Episodic Spondylosis; intervertebral disc disorders; other back problems (20 sources) Muscle spasm of back; Translations: [Radiculopathy, cervical region] Onset: 11-13-2021 Episodic Unclassified (1 source) Paroxysmal ventricular tachycardia I47.29 Unclassified (1 source) Acute cough R05.1 Unclassified (1 source) LOW BACK PAIN, UNSPECIFIED; Translations: [LOW BACK PAIN, UNSPECIFIED] Onset: 08-25-2022 Unclassified (1 source) Onset: 04-07-2024 04-07-2024 Viral infection (15 sources) Disease caused by 2019-nCoV; Translations: [COVID-19] Onset: 11-10-2022 Resolved: 01-27-2024 01-27-2024 Episodic Results Test Name Value Interpretation Reference Range Facility Ambulatory Visit Summaryon 1 06-18-2023 Ambulatory Visit Summary Ambulatory Visit Summary JEREMIE BENNETT :1940 Visit Date:04/17/2024 Ambulatory Visit Instructions Your Diagnosis Type 2 diabetes mellitus with hypercholesterolemia BMI 30.0-30.9,adult Exogenous obesity Former smoker Chronic GERD Coronary artery disease involving [place] coronary artery of [place] heart without angina pectoris Hypercholesterolemia Primary hypertension Swollen lymph nodes Malignant neoplasm of head, face and neck Your Care Team Attending Physician - Sabino [...] Tab) fluticasone nasal (fluticasone Nasal 0.05 mg/inh [place]) furosemide (furosemide 20 mg Tab) irbesartan (irbesartan [...] excision, Tonsillectomy, Vasectomy. Discharge Vitals Temperature (Oral) 36.3 ???C Heart Rate (Peripheral) 66 Respiratory Rate 16 Blood Pressure 118/72 Height 160 cm Height 63 in Weight 78.7 kg Weight 173.504 lb BMI 30.74 What to do next Scheduled Follow-Up Appointments Wednesday 2:30 PM EDT With: Where: [address] [address]- Wednesday 3:30 PM EDT With: Hermes CASON, Sabino Rosa Where: [address] [place] [address]- Medications What How Much When Instructions Unchanged albuterol (Albuterol (Eqv-ProAir HFA) 90 [...] 1 Tablets By Mouth Every day Unchanged fluticasone nasal (fluticasone Nasal 0.05 mg/ inh [place]) See instructions USE 1 SPRAY IN BOTH NOSTRILS TWICE DAILY Unchanged furosemide (furosemide 20 mg Tab) 1 [...] By Mouth Every day Unchanged Misc Prescription ([facility] Prescription) See instructions one touch ultra [...] 2% Unchanged omeprazole (omeprazole 40 mg Cap-DR) See instructions TAKE 1 CAPSULE BY MOUTH DAILY Unchanged psyllium (Metamucil) Unchanged rosuvastatin (rosuvastatin 10 mg Tab) See instructions TAKE 1 TABLET BY MOUTH DAILY Unchanged sotalol (sotalol 80 mg Tab) 0.5 tab By Mouth 2 times a day Unchanged tizanidine (tiZANidine 4 mg Tab) 1 Tablets By Mouth Every day Unchanged zonisamide (zonisamide 25 mg Cap) 1 Capsules By Mouth 2 times a day Allergies Adhesive Bandage (Rash) Niaspan ER (Itching) Problems Ongoing - Any problem that you are currently receivin (more content not included)... Normal [facility] CBC w/ Auto Diffon 4 Basophils/100 WBC (Bld) 0.8 % Normal 0.0-2.0 [facility] Comment on above: Performed By: #### 2 [id number] #### [facility] [address] [place] [id number] Basophils/Leukocyte s Auto (Bld) [Pure # fraction] 0.1 E9/L Normal 0.0-0.2 [facility] Comment on above: Performed By: #### 2 [id number] #### [facility] [address] [place] [address] Eosinophils (Bld) [#/Vol] 0.4 E9/L Normal 0.0-0.5 [facility] Comment on above: Performed By: #### 2 [id number] #### [facility] [address] [place] [address] Eosinophils/100 WBC (Bld) 4.6 % Normal 0.0-8.0 [facility] Comment on above: Performed By: #### 2 [id number] #### [facility] [address] [place] [address] Erythrocyte distribution width (RBC) [Ratio] 14.0 % Normal 10.9-14.2 [facility] Comment on above: Performed By: #### 2 [id number] #### [facility] [address] [place] [address] Hematocrit (Bld) [Volume fraction] 43.7 % Normal 37.7-49.0 [facility] Comment on above: Performed By: #### 2 [id number] #### [facility] [address] [place] [address] Hemoglobin (Bld) [Mass/Vol] 14.5 g/dL Normal 13.5-17.5 [facility] Comment on above: Performed By: #### 2 [id number] #### [facility] [address] [place] [address] Lymphocytes (Bld) [#/Vol] 2.0 E9/L Normal 1.0-4.0 [facility] Comment on above: Performed By: #### 2 [id number] #### [facility] [address] [place] [address] Lymphocytes/100 WBC (Bld) 22.4 % Normal 14.0-50.0 [facility] Comment on above: Performed By: #### 2 [id number] #### [facility] [address] [place] [address] MCH (RBC) [Entitic mass] 31.2 pg Normal 27.0-34.0 [facility] Comment on above: Performed By: #### 2 [id number] #### [facility] [address] [place] [address] MCHC (RBC) [Mass/Vol] 33.2 g/dL Normal 31.4-36.0 [facility] Comment on above: Performed By: #### 2 [id number] #### [facility] [address] [place] [address] MCV (RBC) [Entitic vol] 94.2 fL Normal 80.0-100.0 [facility] Comment on above: Performed By: #### 2 [id number] #### [facility] [address] [place] [address] Monocytes (Bld) [#/Vol] 0.7 E9/L Normal 0.2-1.0 [facility] Comment on above: Performed By: #### 2 [id number] #### [facility] [address] [place] [address] Neutrophils (Bld) [#/Vol] 5.7 E9/L Normal 2.0-7.5 [facility] Comment on above: Performed By: #### 2 [id number] #### [facility] [address] [place] [address] Neutrophils/100 WBC (Bld) 64.7 % Normal 36.0-75.0 [facility] Comment on above: Performed By: #### 2 [id number] #### [facility] [address] [place] [address] Platelet mean volume (Bld) [Entitic vol] 9.2 fL Normal 6.4-10.8 [facility] Comment on above: Performed By: #### 2 [id number] #### [facility] [address] [place] [address] Platelets (Bld) [#/Vol] 243.0 E9/L Normal 150.0-500. 0 [facility] Comment on above: Performed By: #### 2 [id number] #### [facility] [address] [place] [address] RBC (Bld) [#/Vol] 4.6 E12/L Normal 4.3-5.9 [facility] Comment on above: Performed By: #### 2 [id number] #### [facility] [address] [place] [address] WBC corrected for nucl RBC Auto (Bld) [#/Vol] 8.9 E9/L Normal 4.0-11.0 [facility] Comment on above: Performed By: #### 2 [id number] #### [facility] [address] [place] [address] CHEMISTRYOrdered By: SYSTEM SYSTEM on 04-17-2024 Albumin [Mass/Vol] 4.3 g/dL Normal 3.3 - 5.0 gm/dL Remisol Chem Albumin DL <= 20 mg/L (U) [Mass/Vol] 0.7 mg/dL Normal 0.0 - 1.9 mg/dL Remisol Chem Albumin/Globulin [Mass ratio] 1.7 {ratio} Normal 1.1 - 2.2 [facility] ALP [Catalytic activity/Vol] 82 [iU]/d Normal 21 - 98 Int._Unit/ L Remisol Chem ALT No additional P-5'-P [Catalytic activity/Vol] 17 [iU]/d Normal 6 - 46 Int._Unit/ L [facility] Anion gap [Moles/Vol] 10 mmol/L Normal 6 - 16 mEq/L [facility] AST [Catalytic activity/Vol] 18 [iU]/d Normal 5 - 43 Int._Unit/ L [facility] Bilirubin [Mass/Vol] 0.6 mg/dL Normal 0.0 - 1.1 mg/dL [facility] Calcium [Mass/Vol] 9.7 mg/dL Normal 8.9 - 11. 1 mg/dL [facility] Chloride [Moles/Vol] 108 mmol/L Normal 101 - 111 mmol/L [facility] CO2 [Moles/Vol] 27 mmol/L Normal 21 - 31 mmol/L [facility] Creatinine [Mass/Vol] 1.0 mg/dL Normal 0.5 - 1.3 mg/dL [facility] Chem eGFR 74 mL/min/1.73 m2 Normal >=59mL/min /1.73 m2 [facility] Globulin (S) [Mass/Vol] 2.5 g/dL Normal 1.4 - 4.0 gm/dL [facility] Glucose [Mass/Vol] 145 mg/dL Normal 55 - 199 mg/dL [facility] Potassium [Moles/Vol] 4.2 mmol/L Normal 3.5 - 5.3 mmol/L [facility] Protein [Mass/Vol] 6.8 g/dL Normal 6.0 - 7.8 gm/dL [facility] Sodium [Moles/Vol] 141 mmol/L Normal 135 - 145 mmol/L [facility] Urea nitrogen [Mass/Vol] 22 mg/dL High 5 - 21 mg/dL [facility] Chem Urea nitrogen/Creatinine [Mass ratio] 22 mg/mg High 10 - 20 Remisol Chem CHEMISTRYOrdered By: Isabel Cuellar on 04-17-2024 HbA1c (Bld) [Mass fraction] 6.5 % High <=5.9% [facility] ChemAutoSS CMPon 04-17-2024 Albumin [Mass/Vol] 4.3 g/dL Normal 3.3-5.0 [facility] Comment on above: Performed By: #### 2 [id number] #### [facility] [address] [place] [address] Albumin/Globulin (S) [Mass conc ratio] 1.7 Normal 1.1-2.2 [facility] Comment on above: Performed By: #### 2 [id number] #### [facility] [address] [place] [address] ALP [Catalytic activity/Vol] 82 Int._Unit/L Normal 21-98 [facility] Comment on above: Performed By: #### 2 [id number] #### [facility] [address] [place] [address] ALT No additional P-5'-P [Catalytic activity/Vol] 17 Int._Unit/L Normal 6-46 [facility] Comment on above: Performed By: #### 2 [id number] #### [facility] [address] [place] [address] Anion gap [Moles/Vol] 10 mmol/L Normal 6-16 [facility] Comment on above: Performed By: #### 2 [id number] #### [facility] [address] [place] [address] AST [Catalytic activity/Vol] 18 Int._Unit/L Normal 5-43 [facility] Comment on above: Performed By: #### 2 [id number] #### [facility] [address] [place] [address] Bilirubin [Mass/Vol] 0.6 mg/dL Normal 0.0-1.1 [facility] Comment on above: Performed By: #### 2 [id number] #### [facility] [address] [place] [address] Calcium [Mass/Vol] 9.7 mg/dL Normal 8.9-11.1 [facility] Comment on above: Performed By: #### 2 [id number] #### [facility] [address] [place] [address] Chloride [Moles/Vol] 108 mmol/L Normal 101-111 [facility] Comment on above: Performed By: #### 2 [id number] #### [facility] [address] [place] [address] CO2 [Moles/Vol] 27 mmol/L Normal 21-31 [facility] Comment on above: Performed By: #### 2 [id number] #### [facility] [address] [place] [address] Creatinine [Mass/Vol] 1.0 mg/dL Normal 0.5-1.3 [facility] Comment on above: Performed By: #### 2 [id number] #### [facility] [address] [place] [address] Globulin (S) [Mass/Vol] 2.5 g/dL Normal 1.4-4.0 [facility] Comment on above: Performed By: #### 2 [id number] #### [facility] [address] [place] [address] Glucose [Mass/Vol] 145 mg/dL Normal 55-199 [facility] Comment on above: Performed By: #### 2 [id number] #### [facility] [address] [place] [address] Potassium [Moles/Vol] 4.2 mmol/L Normal 3.5-5.3 [facility] Comment on above: Performed By: #### 2 [id number] #### [facility] [address] [place] [address] Protein [Mass/Vol] 6.8 g/dL Normal 6.0-7.8 [facility] Comment on above: Performed By: #### 2 [id number] #### [facility] [address] [place] [address] Sodium [Moles/Vol] 141 mmol/L Normal 135-145 [facility] Comment on above: Performed By: #### 2 [id number] #### [facility] [address] [place] [address] Urea nitrogen [Mass/Vol] 22 mg/dL High 5-21 [facility] Comment on above: Performed By: #### 2 [id number] #### [facility] [address] [place] [address] Urea nitrogen/Creatinine [Mass ratio] 22 No Units High 10-20 [facility] Comment on above: Performed By: #### 2 [id number] #### [facility] [address] [place] [address] Family Medicine Office/Clini c Noteon 04-17-2024 Family Medicine Office/Clinic Note Family Medicine Office/Clinic Note HPI Staff Jeremie is an 83 year old male presenting for follow up DM Do you have any of the following symptoms? Foot Exam: foot dr MARIE Eye Exam: has one in Apr. one earlier in the year for the glaucome Last A1C: Hgb A1c POC: 6.1 % (08/30/23 10:26:00) Statin: rosuvastatin 10mg would like a flu shot questions/concerns: wants to ask about the RSV shot History of Present Illness The patient is an 83-year-old male presenting with swollen lymph nodes and associated carcinoma. Approximately a month ago, the patient was found to have cancer in the lymph nodes following a PET scan. 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 The primary issue arose after a CT scan and subsequent biopsy confirmed the presence of cancerous cells, identified as HPV-related carcinoma. Over the past three to four weeks, oral cavity examination detected abscesses and potential sources of carcinoma in the lymph nodes near the mouth. The patient also reports ongoing acid reflux. His coronary artery disease is currently managed by Dr. Arellano, and he has had a PET scan and a biopsy with a referral to Dr. Marlene Schneider in [place] for further evaluation. The patient has a history of type 2 diabetes mellitus, under control with occasional blood sugar testing showing minimal elevations. There are also mentions of prior prostate cancer monitoring and current use of a CPAP machine, along with cholesterol medication adherence. Review of Systems PHQ Score Initial Depression Screen Score: 0 SCORE Physical Exam Vitals & Measurements T: 36.3 ???C(Oral) HR: 66(Peripheral) RR: 16 BP: 118/72 SpO2: 95% HT: 63 in HT: 160 cm WT: 78.7 kg WT: 173.504 lb BMI: 30.74 General: alert, no acute distress ENMT: oral mucosa moist, abscess noted in the mouth, biopsy taken from the left side of the tooth Cardiovascular: Regular rate and rhythm, normal peripheral perfusion, pacemaker on its last legs Respiratory: Lungs clear to auscultation, respirations non labored Extremities: no deformity, no trauma Neurological: oriented x 4, level of consciousness appropriate for age, CN II-XII intact, motor strength equal & normal bilaterally, speech normal Abdomen: Soft, Non-tender, Non-distended, + Bowel sounds Assessment/Plan 1. Type 2 diabetes mellitus with hypercholesterolemia (E11.69: Type 2 diabetes mellitus with other specified complication) Lab work at this time. Continue medication as before. Will adjust meds as needed. I do not believe the patient will be out of control. Ordered: influenza virus vaccine, inactivated, 0.5 mL, Susp-Inj, IntraMuscular, Once, Stop date 04/17/24 12:00:00 EST, Routine, Start date 04/17/24 12:00:00 EST Body Mass Index (BMI) documented 3008F CBC w/ Auto Diff Comprehensive Metabolic Panel Current tobacco non-user 1036F Depression Screening Negative 3352F HgbA1c Influenza immunization administered or previously received 4274F Lab Specimen Collect 87557 Microalbumin Level Urine Most recent diastolic blood pressure <80 mm Hg 3078F Patient screen for fall risk: no falls in last year or 1 fall with no injury in last year 1101F Systolic BP <130 mm Hg (Most Recent) 3074F 2. BMI 30.0-30.9,adult (Z68.30: Body mass index [BMI] 30.0-30.9, adult) BMI education added. Ordered: influenza virus vaccine, inactivated, 0.5 mL, Susp-Inj, IntraMuscular, Once, Stop date 04/17/24 12:00:00 EST, Routine, Start date 04/17/24 12:00:00 EST Body Mass Index (BMI) documented 3008F CBC w/ Auto Diff Comprehensive Metabolic Panel Current tobacco non-user 1036F Depression Screening Negative 3352F HgbA1c Influenza immunization administered or previously received 4274F Lab Specimen Collect 14058 Microalbumin Level Urine Most recent diastolic blood pressure <80 mm Hg 3078F Patient screen for fall risk: no falls in last year or 1 fall with no injury in last year 1101F Systolic BP <130 mm Hg (Most Recent) 3074F 3. Exogenous obesity (E66.09: Other obesity due to excess calories) Advise dietary modifications to assist with weight management, focusing on BMI reduction strategies in adjunct with existing chronic disease management. Ordered: influenza virus vaccine, inactivated, 0.5 mL, Susp-Inj, IntraMuscular, Once, Stop date 04/17/24 12:00:00 EST, Routine, Start date 04/17/24 12:00:00 EST Body Mass Index (BMI) documented 3008F CBC w/ Auto Diff Comprehensive Metabolic Panel Current tobacco non-user 1036F Depression Screening Negative 3352F HgbA1c Influenza immunization administered or previously received 4274F Lab Specimen Collect 46195 Microalbumin Level Urine Most recent diastolic blood pressure <80 mm Hg 3078F Patient screen for fall risk: no falls in last year or 1 fall with no injury in last year 1101F Systolic BP <130 mm Hg (Most Recent) 3074F 4. Former smoker (Z87.891: Personal history of nicotine dependence) Please continue not to smoke. Ordered: influe (more content not included)... Normal [facility] Comment on above: Result Comment: Elec tronically Signed By: Hermes CASON, Sabino Rosa\.br\Date and Time Signed: 04/17/24 12:20 EST HEMATOLOGYOrdered By: SYSTEM SYSTEM on 04-17-2024 Basophils/100 WBC (Bld) 0.8 % Normal 0.0 - 2.0 % Remisol Heme Basophils/Leukocyte s Auto (Bld) [Pure # fraction] 0.1 E9/L Normal 0.0 - 0.2 E9/L Remisol Heme Eosinophils (Bld) [#/Vol] 0.4 E9/L Normal 0.0 - 0.5 E9/L Remisol Heme Eosinophils/100 WBC (Bld) 4.6 % Normal 0.0 - 8.0 % Remisol Heme Erythrocyte distribution width (RBC) [Ratio] 14.0 % Normal 10.9 - 14.2 % Remisol Heme Hematocrit (Bld) [Volume fraction] 43.7 % Normal 37.7 - 49.0 % Remisol Heme Hemoglobin (Bld) [Mass/Vol] 14.5 g/dL Normal 13.5 - 17.5 gm/dL Remisol Heme Lymphocytes (Bld) [#/Vol] 2.0 E9/L Normal 1.0 - 4.0 E9/L Remisol Heme Lymphocytes/100 WBC (Bld) 22.4 % Normal 14.0 - 50.0 % Remisol Heme MCH (RBC) [Entitic mass] 31.2 pg Normal 27.0 - 34.0 pg Remisol Heme MCHC (RBC) [Mass/Vol] 33.2 g/dL Normal 31.4 - 36.0 gm/dL Remisol Heme MCV (RBC) [Entitic vol] 94.2 fL Normal 80.0 - 100.0 fL Rem[facility] Heme Monocytes (Bld) [#/Vol] 0.7 E9/L Normal 0.2 - 1.0 E9/L Remisol Heme Monocytes/100 WBC (Bld) 7.5 % Normal 4.0 - 14.0 % Remisol Heme Neutrophils (Bld) [#/Vol] 5.7 E9/L Normal 2.0 - 7.5 E9/L Rem[facility] Heme Neutrophils/100 WBC (Bld) 64.7 % Normal 36.0 - 75.0 % Rem[facility] Heme Platelet mean volume (Bld) [Entitic vol] 9.2 fL Normal 6.4 - 10.8 fL Rem[facility] Heme Platelets (Bld) [#/Vol] 243.0 E9/L Normal 150.0 - 500.0 E9/L Remisol Heme RBC (Bld) [#/Vol] 4.6 E12/L Normal 4.3 - 5.9 E12/L Rem[facility] Heme WBC corrected for nucl RBC Auto (Bld) [#/Vol] 8.9 E9/L Normal 4.0 - 11.0 E9/L Remisol Heme [id number] 04-17-2024 HbA1c (Bld) [Mass fraction] 6.5 % High <=5.9 [facility] Comment on above: Performed By: #### 7 [id number] #### [facility] [address] [place] [address] U Microalbon 04-17-2024 Albumin DL <= 20 mg/L (U) [Mass/Vol] 0.7 mg/dL Normal 0.0-1.9 [facility] Comment on above: Performed By: #### 1 [id number] #### [facility] [address] [place] [address] eGFRon 12-02-2024 eGFR 74 mL/min/1.73 m2 Normal >=59 [facility] Comment on above: Performed By: #### 1 [id number] #### [facility] [address] [place] [address] Basic metabolic 2000 panelon 04-11-2024 Anion gap [Moles/Vol] 15 mmol/L Normal 10-20 [facility] Comment on above: Performed By: #### 2 4321-2 #### TING Knox (22793) [facility] ([facility]) [id number] [place] [address] Calcium [Mass/Vol] 9.9 mg/dL Normal 8.6-10.[address] [facility] Comment on above: Performed By: #### 2 4321-2 #### TING VIEIRA L (18280) [facility] ([facility]) [address] [place] [address]2533 Chloride [Moles/Vol] 107 mmol/L Normal 98-107 [facility] Comment on above: Performed By: #### 2 4321-2 #### TING VICENTEMOJOHNNY L (00180) [facility] ([facility]) [address] [place] [address]2100 CO2 [Moles/Vol] 25 mmol/L Normal 21-32 [facility] Comment on above: Performed By: #### 2 4321-2 #### TING VIEIRA L (57001) [facility] ([facility]) [id number] [place] [address]38 Creatinine [Mass/Vol] 0.96 mg/dL Normal 0.50-1.30 [facility] Comment on above: Performed By: #### 2 4321-2 #### TING VIEIRA L (88959) [facility] ([facility]) [address] [place] [address] 83597 Glomerular filtration rate/1.73 sq M.predicted 78 mL/min/1.73m*2 Normal >60 [facility] Comment on above: Result Comment: Calc ulations of estimated GFR are performed using the 2020 CKD-EPI Study Refit equation without the race variable for the IDMS-Traceable creatinine methods. https://jasn.asnjournals.org/content//ASN.81154787 88 Performed By: #### 2 4321-2 #### TING Knox (24255) [facility] ([facility]) [address] [place] [address]3970 Glucose [Mass/Vol] 109 mg/dL High 74-[address] [facility] Comment on above: Performed By: #### 2 4321-2 #### TING Knox (81117) [facility] ([facility]) [address] [place] [address] 37070 Potassium [Moles/Vol] 4.5 mmol/L Normal 3.5-5.3 [facility] Comment on above: Performed By: #### 2 4321-2 #### TING Knox (42388) [facility] ([facility]) [address] [place] [address] Sodium [Moles/Vol] 142 mmol/L Normal 136-[address] [facility] Comment on above: Performed By: #### 2 4321-2 #### TING Knox (05851) [facility] ([facility]) [address] [place] [address] 45904 Urea nitrogen [Mass/Vol] 18 mg/dL Normal 6-23 [facility] Comment on above: Performed By: #### 2 4321-2 #### TING Knox (15640) [facility] ([facility]) [address] [place] [address] 64632 CBC panel Auto (Bld)on 04-11 Erythrocyte distribution width (RBC) [Ratio] 13.3 % Normal 11.5-14.5 [facility] Comment on above: Performed By: #### 5 8410-2 #### TING VIEIRA L (40994) [facility] ([facility]) [address] [place] [address] 47212 Hematocrit (Bld) [Volume fraction] 45.5 % Normal 41.0-52.0 [facility] Comment on above: Performed By: #### 5 8410-2 #### TING Knox (19834) [facility] ([facility]) [address] [place] [address] 71381 Hemoglobin (Bld) [Mass/Vol] 14.5 g/dL Normal 13.5-17.5 [facility] Comment on above: Performed By: #### 5 8410-2 #### TING Knox (86216) [facility] ([facility]) [address] [place] [address] 83669 MCH (RBC) [Entitic mass] 30.1 pg Normal 26.0-34.0 [facility] Comment on above: Performed By: #### 5 8410-2 #### TING Knox (87615) [facility] ([facility]) [address] [place] [address] 06267 MCHC (RBC) [Mass/Vol] 31.9 g/dL Low 32.0-36.0 [facility] Comment on above: Performed By: #### 5 8410-2 #### TING Knox (86520) [facility] ([facility]) [address] [place] [address] 60658 MCV (RBC) [Entitic vol] 94 fL Normal 80-100 [facility] Comment on above: Performed By: #### 5 8410-2 #### TING Knox (15728) [facility] ([facility]) [address] [place] [address] 55086 Nucleated RBC/100 WBC (Bld) [Ratio] 0.0 /100 WBCs Normal 0.0-0.0 [facility] Comment on above: Performed By: #### 5 8410-2 #### TING Knox (24785) [facility] ([facility]) [address] [place] [address] 74601 Platelets (Bld) [#/Vol] 254 x10*3/uL Normal 150-450 [facility] Comment on above: Performed By: #### 5 8410-2 #### TING PARKSJOHNNY L (18372) [facility] ([facility]) [address] [place] [address] RBC (Bld) [#/Vol] 4.82 x10*6/uL Normal 4.50-5.90 [facility] Comment on above: Performed By: #### 5 8410-2 #### TING SCHMOTZER L (46419) [facility] ([facility]) [address] [place] [address] WBC (Bld) [#/Vol] 8.5 x10*3/uL Normal 4.4-11.3 [facility] Comment on above: Performed By: #### 5 8410-2 #### TING VICENTEMOTZER L (98606) [facility] ([facility]) [address] [place] [address] Surgical pathology studyon 1 06-07-2023 Surgical pathology study Pathology report.total SEE COMMENT Surgical Pathology Case: [id number] Authorizing Provider: Mary Schneider MD Collected: 04/07/2024 1137 Ordering Location: [facility] Received: 04/07/2024 1145 Pathologist: Alessandro Arzate DDS Specimen: GINGIVA MANDIBULAR LINGUAL LEFT BIOPSY Path report.final diagnosis SEE COMMENT Gingiva, left mandibular lingual, biopsy: - Superficial fragments tangentially sectioned squamous mucosa with hyperkeratosis, focal ulceration, and atypia, see note. Note: Multiple deeper levels were examined. No evidence of carcinoma is seen. Evaluation for dysplasia is difficult due to tangential sectioning and proximity to ulceration. Clinical correlation is recommended. PAS is negative for heart fungal organisms. systems development consultant: Dr. Jose Leary. Laboratory comment By the signature on this report, the individual or group listed as making the Final Interpretation/Diagnosis certifies that they have reviewed this case. Path report.relevant Hx Oral lesion Path report.gross observation SEE COMMENT Received in formalin, labeled with the patient's name and hospital number, is 1 fragment of wilcox, soft tissue measuring 0.7 x 0.3 x 0.1 cm. The specimen is submitted in toto in one cassette. JEK Normal [facility] GLUCOSE, BLOOD (POC)on 03-27 Glucose [Mass/Vol] 113 mg/dL Abnormal 74 - 99 mg/dL [facility] Comment on above: Location:[facility], [address] [place] [address] Dr. [place], [place], [address] The Accu-Chek Inform II glucose meter has not been approved for testing on patients receiving intensive medical intervention or therapy and results from this point of care glucose test should not be used for patient management decisions in these cases. Inaccurate results may also occur from other interfering factors, such as N-acetylcysteine (blood concentrations of greater than 5mg/dL), galactose, extremes of hematocrit (<10 or >65), or high doses of ascorbic acid (vitamin C) greater than 3mg/dL. Consider alternate testing mechanisms (e.g. core lab, blood gas instrument) in the above situations. Interpretation and review of laboratory results Abnormal [facility] NM PET/CT SKULL-THIGH INITon 03-27-2024 NM PET/CT SKULL-THIGH INIT * * *Final Report* * * DATE OF EXAM: Mar 27 2024 12:48PM NRN 0060 - NM PET/CT SKULL-THIGH INIT / PROCEDURE REASON: mets squamous neck cancer; * * * * Physician Interpretation * * * * RESULT: EXAMINATION: BODY FDG PET-CT CLINICAL HISTORY: mets squamous neck cancer. EXAM CATEGORY: Initial treatment strategy. TECHNIQUE: Radiopharmaceutical was administered intravenously followed by PET imaging from the skull vertex to thighs. Free breathing, low dose CT of the same body region was acquired without IV contrast for attenuation correction and anatomic localization. Unenhanced imaging is limited for the evaluation of some pathology and the acquired CT was not designed to produce diagnostic CT scan quality. Physiologic/non-pathologic uptake in some body regions could confound or obscure some pathology. * CT Dose-Length Product (DLP): 307 mGy*cm * CT Dose Reduction Employed: Yes * Blood glucose: 113 mg/dL * Injection site: Left Forearm-Antecubital * Injected activity: 10.1 mCi * Uptake Time: 61 minutes * Radiopharmaceutical: X66-Unlxfivlojhvpcaaak (FDG) COMPARISON: No previous FDG PET/CT available CORRELATION: No relevant prior imaging available RESULT: REFERENCES: FDG uptake is used as a surrogate marker for glucose metabolism. All reported standardized uptake values represent maximum SUV (SUVmax) per body weight, unless otherwise specified. SUV reference values, as follows: * Blood Pool (Descending Aorta): SUVmax 1.8 * Background Liver: SUVmax 1.9; SUVmean 1.3 Localizer Images: No additional findings. There is significant dose infiltration at the left antecubital injection site. This lowers the sensitivity of the exam for detection of mildly FDG avid disease and may artificially lower SUV values. HEAD AND NECK: Head: No radiotracer avid lesion or mass effect in the imaged intracranial compartment. Mild uptake localizing to the left mandible measures SUV max 2.5, without definite CT correlate. Aerodigestive Tract: No radiotracer avid lesion. Lymph Nodes: FDG avid bilateral upper cervical nodes. For example, a right level 2B node measures SUV max 3.7, 1.0 x 0.8 cm (4:82) and a left level 2A node measures SUV max 3.9, 1.3 x 0.8 cm Neck Soft Tissues: No radiotracer avid thyroid nodule. CHEST: Lungs and Pleura: No radiotracer avid mass, nodule, or consolidation. Non-FDG avid 6 mm superior segment right lower lobe pulmonary nodule, likely below PET resolution (4:155). No pleural effusion. Lymph Nodes: No radiotracer avid lymphadenopathy. Mediastinum: No radiotracer avid mass. Cardiovascular: Blood pool activity. No pericardial effusion. Normal heart size. Thoracic aortic and coronary artery calcifications. Left chest wall cardiac pacing device. Chest Wall: No radiotracer avid soft tissue lesion. ABDOMEN AND PELVIS: Hepatobiliary: No radiotracer avid lesion. Cholecystectomy. Spleen: No radiotracer avid lesion. No splenomegaly. Pancreas: No radiotracer avid lesion. Adrenals: No radiotracer avid nodule. Urinary Tract: Physiologic radiotracer excretion in the renal collecting systems and urinary bladder. No hydronephrosis. GI Tract: No radiotracer avid lesion. No bowel dilation. Colonic diverticulosis. Peritoneum: No radiotracer avid lesion. No ascites. Lymph Nodes: No radiotracer avid lymphadenopathy. Vasculature: Blood pool activity. Vascular calcifications without an abdominal aortic aneurysm. Pelvic Organs: No radiotracer avid lesion. Prostatectomy. Excreted FDG is noted within a dilated penile urethra. Artificial urinary sphincter. MUSCULOSKELETAL: Bones: No radiotracer avid lesion. Anterior cervical fixation hardware. Degenerative changes. Soft Tissues: Expected mild uptake localizing to postsurgical changes of left inguinal hernia repair. Significant dose infiltration at the left antecubital injection site. IMPRESSION: Significant dose infiltration at the left antecubital injection site. This lowers the sensitivity of the exam for detection of mildly FDG avid disease and may artificially lower SUV values. Within the limitation: HEAD/NECK: * FDG avid bilateral upper cervical nodes, presumed metastatic. * Mild uptake localizing to the left mandible, without definite CT correlate, may represent underlying periodontal disease. Clinical correlation recommended. CHEST: * No metabolically active disease. * Non-FDG avid 6 mm superior segment right lower lobe pulmonary nodule, likely below PET resolution. Continued attention on follow-up recommended. ABDOMEN/PELVIS: * No metabolically active disease. MUSCULOSKELETAL: * No metabolically active disease. Transcribe Date/Time: Mar 29 2024 2:41P Dictated by: DINORAH SPICER MD This examination was interpreted and the report reviewed and electronically signed by: DINORAH SPICER MD on Mar 29 2024 3:07PM EST Thank you for allowing us to participate in the care of you (more content not included)... Normal [facility] Ambulatory Visit Summaryon 1 05-23-2023 Ambulatory Visit Summary Ambulatory Visit Summary BENNETTJEREMIE Annabelle :1940 Visit Date:03/23/2024 Ambulatory Visit Instructions Your Diagnosis Pancreatic cyst RUQ pain Bloating Chronic GERD History of colon polyps Your Care Team Attending Physician - Beatriz CASON, Inez Funes Primary Care Physician - Sabino Cooper MD [...] Tab) fluticasone nasal (fluticasone Nasal 0.05 mg/inh [place]) furosemide (furosemide 20 mg Tab) irbesartan (irbesartan [...] Tonsillectomy, Vasectomy. Discharge Vitals Heart Rate (Peripheral) 71 Respiratory Rate 16 Blood Pressure 117/74 Height 160 cm Height 63 in Weight 77 kg Weight 169.4 lb BMI 30.08 What to do next Scheduled Follow-Up Appointments Wednesday 10:00 AM EST With: Hermes CASON, Sabino Rosa Where: [place] [id number]- Wednesday 2:30 PM EDT With: Where: [address] [address]- Medications What How Much When Instructions Unchanged albuterol (Albuterol (Eqv-ProAir HFA) 90 [...] fluticasone nasal (fluticasone Nasal 0.05 mg/ inh [place]) See instructions USE 1 SPRAY IN BOTH [...] prescribing physician if questions or concerns Unchanged Non-Formulary Medication (Misc Medication (more content not included)... Normal [facility] Gastroenterology Office/Clin ic Noteon 03-23-2024 Gastroenterology Office/Clinic Note Gastroenterology Office/Clinic Note Chief Complaint 5 month follow up HPI Staff Patient is a(n) 83 year old male who presents today for a(n) 5 month follow up. MRCP not completed - due. Scheduled for PET scan Wednesday d/t newly dx CA - see below. Any GI complaints? Takes Plavix daily. Denies GLP-1 agonists. Last visit 10/21/23 w/Dr. Henderson: Assessment/Plan 1. Pancreatic cyst (K86.2: Cyst of pancreas) small sidebranch IPMN- 04/[address] Aguilar @ [facility] Repeat MRCP 02/2024 2. RUQ pain [...] if patient is agreeable at that time Colonoscopy 06/14/23: 1. Small internal hemorrhoids seen on retroflexion 2. Severe sigmoid diverticulosis, few small diverticuli through transverse and ascending colon 3. 3 mm sessile polyp in the ascending colon, removed completely with cold snare and retrieved 4. Normal Terminal ileum Pathology: Final Diagnosis (Verified) A: COLON, RANDOM BIOPSY: ??? COLONIC MUCOSA WITH LYMPHOID AGGREGATES, WITHIN NORMAL LIMITS. B: POLYP, ASCENDING COLON, POLYPECTOMY: ??? TUBULAR ADENOMA. EGD 04/15/23: Examination of the esophagus revealed a normal esophagus. The squamocolumnar junction appeared regular. Examination of the stomach revealed a normal stomach. Examination of the duodenum revealed a normal duodenum. Pathology: Final Diagnosis (Verified) ANTRUM, BIOPSY: ??? HYPERPLASTIC ANTRAL MUCOSA WITH MILD CHRONIC INACTIVE GASTRITIS. ??? NO INTESTINAL METAPLASIA. ??? NO H. PYLORI MICROORGANISMS IDENTIFIED WITH IMMUNOSTAIN. MRCP 11/09/23: IMPRESSION: 6 mm cyst within the pancreatic body, unchanged from 12/17/2022, and probably representing side branch IPMN. Cholecystectomy. No bile duct dilation. POWERSCRIBE ADDENDUM Per [place] guidelines, for cysts less than 1.0 cm, it is recommended to perform follow-up MRCP in 6 months, then every 2 years if there is no change in size. 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 Pancreatic cyst (K86.2: Cyst of pancreas) Has a small IPMN, no high risk features, last MRI October 2023, given the new diagnosis of cancer of unknown origin, pending PET scan and further workup and given the underlying age, I do not think further surveillance images is indicated, discussed with patient and spouse they both agree Ordered: MRI Cholangiogram Pancreatography (mrcp) 2. RUQ pain (R10.11: Right upper quadrant pain) He describes more discomfort in the epigastric area after any food, he is on lactose-free diet, I wonder also if symptoms worsen due to anxiety with a new cancer diagnosis Will start with FD guard at this point, might consider Bentyl Simethicone also helps 3. Bloating (R14.0: Abdominal distension (gaseous)) 4. Chronic GERD (K21.9: Gastro-esophageal reflux disease without esophagitis) 5. History of colon polyps (Z86.0100: Personal history of colon polyps, unspecified) No need for further surveillance Follow-up No qualifying data available Problem List/Past Medical History Ongoing Bloating BMI 29.0-29.9,adult Cervical lymphadenopathy Cervical spondylosis Chronic GERD Coronary artery disease involving [place] coronary artery of [place] heart without angina pectoris Diabetic autonomic neuropathy [...] Esophagogastroduodenoscopy (04/15/2023), Esophagogastroduodenoscopy (05/20/2020), Angioplasty, Cardiac pacemaker proced (more content not included)... Normal [facility] Comment on above: Result Comment: Elec tronically Signed By: Beatriz CASON, Inez Funes\.marco a\Date and Time Signed: 03/23/24 14:49 EST Obdulio 02-29-2024 L Specimen: [id number] R eceived: 02/29/24 Status: LISA Re Num: [id number] Spec Type: Surgical Subm Dr: LUC HAM MD Tissues: A Lymph Node - Biopsy (Needle or Incisional) (RT CERVICAL LYMPH NODE) B Lymph Node - Biopsy (Needle or Incisional) (RT CERVICAL LYMPH NODE-SALIN) Procedures: S 100, Mucicarmine, HE/6, Gross/Micro L4/2, CK5 6, CK20, CK 7, NAPSIN A, CINtec p16, TTF1, NKX3.1, MOC31, GATA3, p40, DIFF QWIK Age/ Patient Sex Location Account Attending Physician Jeremie Bennett 83/M [facility] [id number] LUC HAM MD SPEC NUM: [id number] RECD: 02/29/24 STATUS: LISA KIRBY NUM: [id number] DONTRELL: 02/29/24- DR: LUC HAM MD ENTERED: 02/29/[address] [facility] [address]: Myra Will SPEC TYPE: Surgical DEPT: MANNY MONTEZ ENTERED BY: [id number] RECV BY: [id number] ORDERED: S 100, Mucicarmine, HE/6, Gross/Micro L4/2, CK5 6, CK20, CK 7, NAPSIN A, CINtec p16, TTF1, NKX3.1, MOC31, GATA3, p40, DIFF QWIK ORDERED: S 100, Mucicarmine, HE/6, Gross/Micro L4/2, CK5 6, CK20, CK 7, NAPSIN A, CINtec p16, TTF1, USS/4, NKX3.1, MOC31, GATA3, p40, DIFF QWIK Supplemental Report Addendum 1 Entered: 03/04/24-9431 Supplemental for findings of flow cytometry analysis (Part B) from [facility] -The flow cytometry test is canceled, due to insufficient cellularity / insufficient lymphocytes Addendum Signed (signature on file) Tae Sanchez MD 03/04/24 1035 -------- Pathological Diagnosis A, right cervical lymph node, core biopsy: -Positive for metastatic carcinoma, 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 Note: -------- Specimen: [id number] Received: 02/29/24 Status: LISA Kirby Num: [id number] Spec Type: Surgical Subm Dr: LUC HAM MD Tissues: A Lymph Node - Biopsy (Needle or Incisional) (RT CERVICAL LYMPH NODE) B Lymph Node - Biopsy (Needle or Incisional) (RT CERVICAL LYMPH NODE-SALIN) Procedures: S 100, Mucicarmine, HE/6, Gross/Micro L4/2, CK5 6, CK20, CK 7, NAPSIN A, CINtec p16, TTF1, NKX3.1, MOC31, GATA3, p40, DIFF QWIK -------- Patient: Jeremie Bennett [id number] (Continued) -------- Specimen: [id number] Received: 02/29/24 (Continued) Pathological Diagnosis (Continued) Signed (signature on file) Chin-Anup Sanchez MD 03/04/24 1033 -------- Specimen: [id number] Received: 02/29/24 Status: LISA Kirby Num: [id number] Spec Type: Surgical Subm Dr: LUC HAM MD Tissues: A Lymph Node - Biopsy (Needle or Incisional) (RT CERVICAL LYMPH NODE) B Lymph Node - Biopsy (Needle or Incisional) (RT CERVICAL LYMPH NODE-SALIN) Procedures: S 100, Mucicarmine, HE/6, Gross/Micro L4/2, CK5 6, CK20, CK 7, NAPSIN A, CINtec p16, TTF1, NKX3.1, MOC31, GATA3, p40, DIFF QWIK -------- Patient: Jeremie Bennett [id number] (Continued) -------- Specimen: [id number] Received: 02/29/24-151 (Continued) Pathological Diagnosis (Continued) -The tumor cells are positive for CK5/6, p40, CK7 (at least mild), and p16 (>70%); and are negative for GATA3 (only focally staining lymphoid infiltrate), CK20, MOC-31 (only faintly background staining or edge effect), Napsin A, TTF-1, S100, and NKX3.1, supporting the above interpretation, and also can largely exclude possibility of the metastatic pulmonary adenocarcinoma, melanoma, or ductal carcinoma of prostate -The tumor cells are also negative for mucicarmine. Immuno controls are reactive B, right cervical lymph node, core biopsy: -The flow cytometry test is canceled, due to insufficient cellularity / insufficient lymphocytes Clinical Information Right cervical lymphadenopathy history of skin cancer, history of prostate cancer ultrasound-guided core biopsy Gross Description Part a received in formalin with the patient's name and right cervical lymph node and consists of 4 possible core biopsies ranging in size from 0.1 to 0.5 cm each with an average diameter of 0.1 cm. The smallest portions may not survive processing. The specimen is entirely submitted in cassette A1. Part B received in saline with the patient's name and right cervical lymph node and consists of 2 wilcox-white cylindrical cores measuring 0.2 and 0.6 cm in length both with an average diameter of 0.1 cm. Touch preps are performed. The specimen is submitted in RPMI for flow c (more content not included)... Normal [facility] CT SOFT TISSUE NECK W IV CON [...] Comment: CT S/ T Neck W at [facility]. Please call patient to schedule. MRI [...] Henderson FINAL REPORT Dictated: 02/03/2024 5:33 pm Slaomón Ballard MD. Signed (Electronic Signature): 02/03/2024 5:33 [...] Salomón Ballard MD Transcribed by: SHAUNNA Technologist: KML Report last revised on 02/03/2024 17:33 EDT by Salomón Ballard MD [facility] 02-02-2024 [facility] Telephone ([facility]) JEREMIE BENNETT ([id number]) 1940 M Date Time Provider Department 02/02/24 VAISHALI PRINGLE [facility] During your visit today, we recorded [...] and it was completed in 12/2023 at [facility]. Our office will request results for Dr. Pringle's review. Follow up will be determined upon Dr. Pringle's review of results. Carlitos Beckman 02/04/2024 9:19 AM Signed Surveillance imaging completed at OSH for IPMN surveillance. Carlitos Beckman 02/07/2024 9:31 AM Signed IPMN surveillance. Review OSH images and advise please [facility] MRI Cholanglogram Pancreatography 11/09/2023 Allergies As of Date: 02/02/2024 Noted Allergy Reaction ADHESIVE TAPE-SILICONES 01/19/2019 2 - Rash NIACIN 01/19/2019 9 - Itching 16 - Unknown Date Reviewed: 04/01/2023 Reviewed by: Debby Holland MA - Fully Assessed Reason for Visit: MRI Appointment [0739] Apple Sorter - Other [3602] Primary Visit Diagnosis:IPMN (intraductal papillary mucinous neoplasm) [D49.0] Order(s):CONSULT FOR RAD 2ND READ [[id number]] Order #: [id number]: 1 Prescriptions as of 02/18/2024 - iv contrast (will be provided with radiology test) MRI PANC/VARGAS Inject, intravenously, once for 1 dose. No [...] fluticasone (FLONASE) 50 mcg/actuation nasal spray 1 [place]. - omeprazole (PRILOSEC) 40 mg capsule Take [...] Encounter Status:Closed by CARLITOS BECKMAN on 02/18/24 [facility] Ambulatory Visit Summaryon 0 02-01-2024 Ambulatory Visit Summary Ambulatory Visit Summary JEREMIE BENNETT Annabelle :1940 Visit Date:02/01/2024 Ambulatory Visit Instructions Your [...] Tab) fluticasone nasal (fluticasone Nasal 0.05 mg/inh [place]) furosemide (furosemide 20 mg Tab) irbesartan (irbesartan [...] EST With: Beatriz CASON, Inez Funes Where: [facility] [address] [place] [address] [place] [address]- Wednesday 10:00 AM EST With: Hermes CASON, Sabino Rosa Where: [address] [id number]- Wednesday 2:30 PM EDT With: Where: [address] [address]- Medications What How Much When Why Instructions [...] fluticasone nasal (fluticasone Nasal 0.05 mg/ inh [place]) See instructions USE 1 SPRAY IN BOTH [...] See instructions (more content not included)... Normal [facility] Family Medicine Office/Clini c Noteon 02-01-2024 Family [...] BID, # 20 cap(s), Refills(s) 0, Pharmacy: [facility] #[id number], 160, cm, 01/10/24 9:43:00 EDT, Height/Length Dosing, 77.8, kg, 01/10/24 9:43:00 EDT, Weight Dosing Follow-up No qualifying data available Problem List/Past Medical History Ongoing BMI 29.0-29.9,adult Cervical lymphadenopathy Cervical spondylosis Chronic GERD Coronary artery disease involving [place] coronary artery of [place] heart without angina pectoris Diabetic autonomic neuropathy [...] PRN, 1 refills fluticasone Nasal 0.05 mg/inh [place], See Instructions furosemide 20 mg Tab, 20 [...] change: No. Household alcohol concerns: No., 11/08/2023 [facility] (more content not included)... Normal [facility] Comment on above: Result Comment: Elec tronically Signed By: Hermes CASON, Sabino Rosa\.br\Date and Time Signed: 02/01/24 09:16 EDT Ambulatory [...] mg Tab) fluticasone nasal (Flonase 0.05 mg/inh [place]) furosemide (furosemide 20 mg Tab) irbesartan (irbesartan [...] Follow-Up Appointments Wednesday 8:45 AM EDT With: Hermes CASON, Sabino Rosa Where: [address] [address]- 2023 2:45 PM EST With: Beatriz CASON, Inez Funes Where: [facility] [address] [place] [address] [place] [address]- Wednesday 10:00 AM EST With: Sabino Cooper MD Where: [address] [address]- Wednesday 2:30 PM EDT With: Where: [address] [address]- Medications What How Much When Why Instructions [...] Unchanged fluticasone nasal (Flonase 0.05 mg/ inh [place]) 1 Sprays Nasal Inhalation 2 times a [...] By Mouth Every day Unchanged Misc Prescription ([facility] D[facility] Prescription) See instructions one touch ultra [...] zonisamide (z (more content not included)... Normal [facility] Family Medicine Office/Clini c Noteon 01-10-2024 Family [...] BID, # 20 cap(s), Refills(s) 0, Pharmacy: [facility] #[id number], 160, cm, 01/10/24 9:43:00 EDT, Height/Length Dosing, 77.8, kg, 01/10/24 9:43:00 EDT, Weight Dosing Follow-up No qualifying data available Problem List/Past Medical History Ongoing BMI 29.0-29.9,adult Cervical lymphadenopathy Cervical spondylosis Chronic GERD Coronary artery disease involving [place] coronary artery of [place] heart without angina pectoris Diabetic autonomic neuropathy [...] q4hr, PRN, 1 refills Flonase 0.05 mg/inh [place], 1 spray(s), Nasal, BID furosemide 20 mg Tab, 20 mg= 1 tab(s), Oral, Daily irbesartan 300 mg Tab, 300 mg= 1 tab(s), Oral, Daily isosorbide mononitrate, 30 mg, Oral, qAM latanoprost Opth 0.005% Janee loperamide 2 mg (more content not included)... 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 Normal [facility] Comment on above: Result Comment: Elec tronically Signed By: Hermes CASON, Sabino Rosa\.br\Date and Time Signed: 12/05/23 13:30 EDT\.br\Electronically Co-Signed By: Shaila Osborne LPN\.br\Date and Time Co-Signed: 11/08/23 17:05 EDT Ambulatory [...] mg Tab) fluticasone nasal (Flonase 0.05 mg/inh [place]) furosemide (furosemide 20 mg Tab) irbesartan (irbesartan [...] EST With: Beatriz CASON, Inez Funes Where: [facility] Invalid Interpretation Code [address] [place] [address]- \. br\ Wednesday 2:30 PM EDT \.br\ With:\.br\ Where: [facility] Family Medicine Office/Clini c Noteon 11-29-2023 Family Medicine [...] q4hr for headache, 60 cap(s), Refill(s) 1, [facility] #[id number], 160, cm, 11/29/23 10:29:00 EDT, Height/Length Dosing, 78.5, kg, 11/29/23 10:29:00 EDT, Weight Dosing - Will see back in 5 months. Follow-up No qualifying data available Patient Education Abdominal Bloating Problem List/Past Medical History Ongoing BMI 29.0-29.9,adult Cervical spondylosis Chronic GERD Coronary artery disease involving [place] coronary artery of [place] heart without angina pectoris Diabetic autonomic neuropathy [...] q4hr, PRN, 1 refills Flonase 0.05 mg/inh [place], 1 spray(s), Nasal, BID furosemide 20 mg Tab, 20 mg= 1 tab(s), Oral, Daily irbesartan 300 mg Tab, 300 mg= 1 tab(s), Oral, Daily isosorbide mononitrate, 30 mg, Oral, qAM latanoprost Opth 0.005% Janee loperamide 2 mg Tab, 2 mg= 1 tab(s), Oral, q4hr Metamucil metformin 500 mg ER Tab, 500 mg= 1 tab(s), Oral, Daily [facility] D[facility] Prescription, See Instructions Misc DME Prescription, [...] use int (more content not included)... Normal [facility] Comment on above: Result Comment: Elec tronically Signed By: Sabino Cooper MD\.br\Date and Time Signed: 11/29/23 10:51 EDT Pre-Visit Planningon 024 Pre-Visit Planning Pre-Visit Planning From: Sabino Cooper MD To: Dylon BELLShaila; Sent: 11/07/2023 11:21:23 EDT Subject: FW: Pre-Visit Planning Caller Name: JEREMIE BENNETT; Caller Number: H I am not sure. I will ask Shaila to follow up. From: Bobbi Hall To: Sabino Cooper MD; Sent: 11/05/2023 10:55:49 EDT Subject: Pre-Visit Planning Due Date/Time: 11/05/2023 10:55:00 EDT Caller Name: JEREMIE BENNETT; Caller Number: H Al Dr. Cooper. During a pre-visit planning chart [...] feel free to contact me at extension [phone]. Thank you! 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 He sees Dr. Arellano in [place]. I called to request records but they [...] Caller Name: JEREMIE BENNETT; Caller Number: H [address] Consultation Noteon 11-10-19 Consultation Note [id number]#1.00TIFF Normal [facility] Consent for Treatmenton 10-16 Consent for Treatment [id number]#1.00TIFF Normal [facility] RAD - MISCon 11-09-2023 RAD - MISC [id number]#1.00TIFF Normal [facility] RAD - MRI Screening Formon 0 11-09-2023 RAD - MRI Screening Form [id number]#1.00TIFF Normal [facility] Screenson 11-09-2023 Screens [id number]#1.00TIFF Normal [facility] XR Chest Single Viewon 11-08 XR Chest [...] mGy = na DAP = na Normal [facility] Ambulatory Visit Summaryon 0 11-08-2023 Ambulatory Visit [...] MD This Is Your Medications List APAP/butalbital/caffeine (APAP/butalbital/caffeine [...] mg Tab) fluticasone nasal (Flonase 0.05 mg/inh [place]) furosemide (furosemide 20 mg Tab) irbesartan (irbesartan [...] Resonance Imaging Wednesday 10:15 AM EDT With: Hermes CASON, Sabino Rosa Where: [facility] Invalid Interpretation Code [address] [place] [address]- \. br\ Wednesday 2:30 PM EDT \.br\ With:\.br\ Where: [facility] Patient Educationon 11-08-19 Patient Education Endocrinology Diabetes [...] Carrots. Green beans. Tomatoes. Peppers. Onions. Cucumbers. [place] sprouts. Grains Whole grains, such as whole-wheat or whole-grain bread, crackers, tortillas, cereal, and pasta. Unsweetened oatmeal. (more content not included)... Normal [facility] Pre-Visit Planningon 024 Pre-Visit Planning - From: Bobbi Hall To: Sabino Cooper MD; Sent: 11/05/2023 11:21:25 EDT Subject: Pre-Visit Planning Due Date/Time: 11/05/2023 11:21:00 EDT Caller Name: JEREMIE BENNETT; Caller Number: H Al Dr. Cooper. During a pre-visit planning chart [...] feel free to contact me at extension [phone]. Thank you! Bobbi Hall LPN From: Sabino Cooper MD To: Bobbi Hall; Sent: 11/07/2023 11:18:34 EDT Subject: RE: Pre-Visit Planning Caller Name: JEREMIE BENNETT; Caller Number: H -Thoracic aortic ectasia Normal [address] [facility] Insurance Correspondenceon 0 10-25-2023 Insurance Correspondence [id number]#1.00TIFF Normal [facility] Gastroenterology Office/Clin ic Noteon 10-21-2023 Gastroenterology Office/Clinic [...] MRCP in 2 years. MRCP completed at [facility] 02/16/2023 showed 3 mm cystic lesion in pancreatic body. Patient was evaluated at [facility]: Dr. 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 5. History of colon polyps (Z86.010: Personal history of colonic polyps) MRI 02/16/23 @ [facility]: IMPRESSION: NO ACUTE FINDINGS. 3 MM CYSTIC [...] sidebranch IPMN- 04/[address] Aguilar @ [facility] Repeat MRCP 02/2024 2. RUQ pain [...] Prostate e (more content not included)... Normal [facility] Comment on above: Result Comment: Elec tronically Signed By: Beatriz CASON, Inez Funes\.br\Date and Time Signed: 10/21/23 15:38 EDT\.br\Electronically Co-Signed By: Eduarda Sims MA\.br\Date and Time Co-Signed: 10/21/23 15:27 EDT Celiac Disease Comprehensive on 09-20-2023 Endomysium IgA Ql (S) Negative Invalid Interpretation Code Negative [facility] Comment on above: Performed By: #### 1 [id number] ####[facility] [address] [place] [address] Gliadin peptide IgA Qn (S) 4 unit(s) Invalid Interpretation Code 0-19 [facility] Comment on above: Result Comment: Nega tive 0 - 19 Weak Positive 20 - 30 Moderate to Strong Positive >30 Performed By: #### 1 [id number] ####[facility] [address] [place] [address] Gliadin peptide IgG Qn (S) 4 unit(s) Invalid Interpretation Code 0-19 [facility] Comment on above: Result Comment: Nega tive 0 - 19 Weak Positive 20 - 30 Moderate to Strong Positive >30 Performed By: #### 1 [id number] ####[facility] [address] [place] [address] IgA [Mass/Vol] 136 mg/dL Invalid Interpretation Code 61-437 [facility] Comment on above: Result Comment: Perf ormed at: [facility] [address] [id number] PhD Barbarakranthiclive Bower Performed By: #### 1 [id number] ####[facility] [address] [place] [address] tTG IgA Qn (S) <2 Invalid Interpretation Code 0-3 [facility] Comment on above: Result Comment: Nega tive 0 - 3 Weak Positive 4 - 10 Positive >10 Tissue Transglutaminase (tTG) has been identified as the endomysial antigen. Studies have demonstr- ated that endomysial IgA antibodies have over 99% specificity for gluten sensitive enteropathy. Performed By: #### 1 [id number] ####[facility] [address] [place] [address] tTG IgG Qn (S) <2 Invalid Interpretation Code 0-5 [facility] Comment on above: Result Comment: Nega tive 0 - 5 Weak Positive 6 - 9 Positive >9 Performed By: #### 1 [id number] ####[facility] [address] [place] [address] Ambulatory Visit Summaryon 0 09-17-2023 Ambulatory Visit Summary JEREMIE BENNETT :1940 Visit Date:09/17/2023 Ambulatory Visit Instructions Your [...] 2% solution) fluticasone nasal (Flonase 0.05 mg/inh [place]) fluticasone nasal (fluticasone Nasal 0.05 mg/inh [place]) furosemide (furosemide 20 mg Tab) irbesartan (irbesartan [...] Appointments Wednesday 1:00 PM EDT With: Where: [facility] Invalid Interpretation Code [address] [place] [address]- \. br\ You Need to Schedule the Following Appointmen ts\.br\ Follow Up with Sammi CASON, Jaiden Douglas, GAS, MED When: Within 3 months\.br \ Where:\.br \ [address], [address]\.br\ [place] [address].br \ [phone] \.br\ You Need to Complete the Following\ .br\ Celiac Disease Comprehens rosa, Blood, Routine collect, 09/17/23, Order for future visit, Lab Collect, RUQ pain [facility] Consent for Treatmenton Consent for Treatment [id number]#1.00TIFF Normal [facility] Gastroenterology Office/Clin ic Noteon 09-17-2023 Gastroenterology Office/Clinic [...] taking Plavix. Patient was previously referred to [facility] regarding pancreatic cyst. Patient had previous [...] hemorrhoids. Previous review of outside records from [facility] from 03/[address] abdomen/pelvis that revealed prominent amount of fluid in colon suggesting diarrhea, diverticulosis. Patient had previous ultrasound of RUQ 09/2019 at outside facility that revealed 0.7 cm pancreatic cyst and cholelithiasis. Patient reports history of cholecystectomy in 2019. Previous labs at outside facility 11/2022 revealed normal BUN, normal creatinine, normal LFTs, normal H&H. Outside record from [facility] from 04/01/2020 indicated patient had RUQ ultrasound that revealed no acute process, fatty change in liver. Ultrasound of abdomen 12/17/2022 revealed 6 mm pancreatic cyst and radiology recommended MRI with contrast or MRCP in 2 years. MRCP completed at [facility] 02/16/2023 showed 3 mm cystic lesion in pancreatic body. I recommended for patient to be referred to [facility] for further evaluation regarding pancreatic cyst and patient was referred. Previous EGD with general surgery 04/15/2023 that was normal. Biopsy of antrum revealed mild chronic inactive gastritis, negative for intestinal metaplasia, negative for H. pylori. Stool testing negative for infectious process 03/10/23. Patient was evaluated at [facility]: Dr. Pringle regarding pancreatic cyst 04/28/2023 [...] to auscult (more content not included)... Normal [facility] Comment on above: Result Comment: Elec [...] grapefruit, pineapple, and nury. Vegetables Deep-fried vegetables. [place] Citizen fries. Any vegetables prepared with added fat. [...] reflux di (more content not included)... Normal [facility] Consultation Noteon 09-15-19 24 Consultation Note [id number]#1.00TIFF Normal [facility] Ambulatory Visit Summaryon 0 08-30-2023 Ambulatory Visit Summary JEREMIE BENNETT :1940 Visit Date:08/30/2023 Ambulatory Visit Instructions Your Diagnosis Type 2 diabetes mellitus without complication, without long-term current use of insulin Irregular bowel habits Primary hypertension BMI 29.0-29.9,adult Over weight Former smoker Your Care Team Attending Physician - Sabino Cooper MD. Primary Care Physician - Sabino Cooper MD [...] mg Tab) fluticasone nasal (Flonase 0.05 mg/inh [place]) fluticasone nasal (fluticasone Nasal 0.05 mg/inh [place]) furosemide (furosemide 20 mg Tab) irbesartan (irbesartan [...] PM EDT With: Anjali Ruby CNP Where: [facility] Invalid Interpretation Code [address] [place] [address]- \. br\ Wednesday 10:15 AM EDT \.br\ With: Sabino Cooper MD\.br\ Where: [facility] Family Medicine [facility] Family Medicine Office/Clini c Noteon 08-30-2023 Family [...] - DM shoes ordered. Ordered: A1c POC 17801 2. Irregular bowel habits (R19.8: Other specified symptoms and signs involving the digestive system and abdomen) - No Gallbladder. - Will try cholestyramin Ordered: A1c POC 25910 3. Primary hypertension (I10: Essential (primary) hypertension) - At goal Ordered: A1c POC 94028 4. BMI 29.0-29.9,adult (Z68.29: Body mass index [BMI] 29.0-29.9, adult) - BMI education given Ordered: A1c POC 37826 5. Over weight (E66.3: Overweight) - Diet and exercise advised Ordered: A1c POC 89433 6. Former smoker (Z87.891: Personal history of nicotine dependence) - Please stop smoking. Orders: cholestyramine, 5 gram, 1 packet(s), Oral, BID, 180 packet(s), Refill(s) 0, [facility] #[id number], 162, cm, 08/30/23 10:00:00 EDT, Height/Length Dosing, 78.4, kg, 08/30/23 10:00:00 EDT, Weight Dosing metformin, 500 mg = 1 tab(s), Oral, Daily, # 180 tab(s), Refills(s) 0, Pharmacy: [facility] #[id number], 163, cm, 05/31/23 10:14:00 EST, Height/Length Dosing, [...] 1 drop(s), OPTH, BID Flonase 0.05 mg/inh [place], 1 spray(s), Nasal, BID fluticasone Nasal 0.05 mg/inh [place] furosemide 20 mg Tab, 20 mg= 1 tab(s), Oral, Daily irbesartan 300 mg Tab, 300 mg= 1 tab(s), Oral, Daily isosorbide mononitrate, 30 mg, Oral, qAM latanoprost ophthalmic, qPM latanoprost Opth 0.005% Janee loperamide 2 mg Tab, 2 mg= 1 tab(s), Oral, q4hr Metamucil metformin 500 mg ER Tab, 500 mg= 1 tab(s), Oral, Daily [facility], See Instructions [facility], See Instructions Multivitamin, Therapeutic w/ Minerals, Oral, Daily omeprazole 40 mg Cap-DR, See Instructions Pepcid 20 mg Tab, 20 mg= 1 tab(s), Oral, Once a day (at bedtime) Plavix 75 mg Tab, 75 mg= 1 tab(s), Oral, Daily rosuvastatin 10 mg Tab, See Instructions, 3 refills sotalol 80 mg Tab, 0.5 tab, Oral, B (more content not included)... Normal [facility] Comment on above: Result Comment: Elec tronically Signed By: Hermes CASON, Sabino Rosa\.br\Date and Time Signed: 08/30/23 10:21 EDT Operative Reporton Operative Report [id number]#1.00TIFF [facility] Gastroenterology Office/Clin ic Noteon 06-25-2023 Gastroenterology Office/Clinic Note Chief Complaint follow up to colon [facility] Staff This is a 82 [...] taking Plavix. Patient was previously referred to [facility] regarding pancreatic cyst. Patient had previous [...] hemorrhoids. Previous review of outside records from [facility] from 03/[address] abdomen/pelvis that revealed prominent amount of fluid in colon suggesting diarrhea, diverticulosis. Patient had previous ultrasound of RUQ 09/2019 at outside facility that revealed 0.7 cm pancreatic cyst and cholelithiasis. Patient reports history of cholecystectomy in 2019. Previous labs at outside facility [id number] revealed normal BUN, normal creatinine, normal LFTs, normal H&H. Outside record from [facility] from 04/01/2020 indicated patient had RUQ ultrasound that revealed no acute process, fatty change in liver. Ultrasound of abdomen 12/17/2022 revealed 6 mm pancreatic cyst and radiology recommended MRI with contrast or MRCP in 2 years. MRCP completed at [facility] 02/16/2023 showed 3 mm cystic lesion in pancreatic body. I recommended for patient to be referred to [facility] for further evaluation regarding pancreatic cyst and patient was referred. Previous EGD with general surgery 04/15/2023 that was normal. Biopsy of antrum revealed mild chronic inactive gastritis, negative for intestinal metaplasia, negative for H. pylori. Stool testing negative for infectious process 03/10/23. Patient was evaluated at [facility]: Dr. Pringle regarding pancreatic cyst 04/28/2023 [...] to ausculta (more content not included)... Normal [facility] Comment on above: Result Comment: Elec [...] liquor (44 mL). General instructions ? Take ljmv-tcs-hxwkmty and prescription medicines only as told by [...] Revised: 08/21/2020 D (more content not included)... [facility] Reminderson 06-25-2023 Reminders - From: Anjali Ruby CNP To: Yolanda Braden; Sent: 06/25/2023 11:43:39 EST Show up: 06/25/2023 11:44:00 EST Subject: Ambulatory Reminder Reminder/Recall Colonoscopy in 2028. 06/14/2028 5 year colon recall From: Yolanda Braden To: [facility] - Reminders/Recalls; Sent: 06/25/2023 13:55:08 EST ! Show up: 04/16/2028 13:55:00 EST Due Date/Time: 05/17/2028 13:55:00 EST [facility] Consultation Noteon 06-23-19 24 Consultation Note [id number]#1.00TIFF [facility] IntraOperative Documentson 0 06-21-2023 IntraOperative Documents [id number]#1.00TIFF Normal [facility] Postoperative Documentson Postoperative Documents [id number]#1.00TIFF Normal [facility] Consenton 06-16-2023 Consent [id number]#1.00TIFF Normal [facility] Discharge Instructionson Discharge Instructions [id number]#1.00TIFF [facility] Main OR Intraoperative Recor don 06-15-2023 Main OR Intraoperative Record IntraOp Document Type FT Summary Primary Physician: Inez Henderson MD Finalized Date/Time: 06/15/23 09:13:07 Pt. Name: JEREMIE BENNETT/Sex: 1940 Male Med Rec #: [id number] Physician: Inez Henderson MD Financial #: [id number] Pt. Type: O Room/Bed: / Admit/Disch: 06/14/23 [...] Ernesto DENSON, Gordy Jackson RN, Alize Cabrera [employer] ASSEMBLER, Negar Campbell Role Performed Anesthesiologist Biofuels Technology Manager - Primary Scrub - Primary Adjunct Sociology Professor Time In 06/14/23 14:14:00 06/14/23 14:14:00 06/14/23 [...] Jackson RN, Rick FAYE, Beatriz Espino MD, Inez Funes Time Out [...] and tissue Entry 1 Skin Integrity Intact, [place], Warm, and Skin Abnormality No Dry Outcomes [...] 1 Procedure (more content not included)... Normal [facility] Consent for Treatmenton 05-18 Consent for Treatment [id number]#1.00TIFF Normal [facility] Discharge Instructionson Discharge Instructions JEREMIE BENNETT [...] 2% solution) fluticasone nasal (Flonase 0.05 mg/inh [place]) fluticasone nasal (fluticasone Nasal 0.05 mg/inh [place]) furosemide (furosemide 20 mg Tab) glimepiride (glimepiride [...] Event Result Pharmacy Information Other: [facility] [place] Previously Scheduled Follow-Up Appointments Wednesday 1:20 PM EST With: Anjali Ruby CNP Where: [facility] Invalid Interpretation Code [address] [place] [address]- \. br\ Wednesday 1:00 PM EDT \.br\ With:\.br\ Where: [facility] Comment on above: Result Comment: Elec [...] hours. Education and Follow-up: Counseled: Patient, Family. [facility] Comment on above: Result Comment: Elec tronically Signed By: Beatriz CASON, Inez Funes\.br\Date and Time Signed: 06/14/23 14:39 EST Main OR PACU I Recordon 05-18 Main OR PACU I Record PACU Phase I Document Type FT Summary Primary Physician: Inez Henderson MD Finalized Date/Time: 06/14/23 17:33:36 Pt. Name: JEREMIE BENNETT/Sex: 1940 Male Med Rec #: [id number] Physician: Inez Henderson MD Financial #: [id number] Pt. Type: O Room/Bed: / Admit/Disch: 06/14/23 [...] By: Colette Cooley RN 06/14/23 17:33 Normal [facility] Main OR Preoperative Recordo n 06-14-2023 Main OR Preoperative Record Holding Area Document Type FT Summary Primary Physician: Inez Henderson MD Finalized Date/Time: 06/14/23 12:48:41 Pt. Name: JEREMIE BENNETT/Sex: 1940 Male Med Rec #: [id number] Physician: Inez Henderson MD Financial #: [id number] Pt. Type: O Room/Bed: / Admit/Disch: 06/14/23 [...] By: Sabine Penny RN 06/14/23 12:48 Normal [facility] Monitor Recordon 06-14-2023 Monitor Record [id number]#1.00TIFF Normal [facility] Patient Education - Texton 0 06-14-2023 [...] ? neck pain Some NSAIDs are available lmcc-lyg-nestqsv, without the need for a prescription. However, [...] than your doctor has prescribed. Follow the tqgw-tzv-urttxzl labels and do not exceed the recommended [...] through weak (more content not included)... Normal [facility] Progress Note-Physicianon Progress Note-Physician Patient: JEREMIE BENNETT Age: 82 years Sex: Male : 1940 Associated Diagnoses: None Author: Macario Martinez Jr., DO Postoperative Information Postoperative disposition: Postoperative disposition: Home. Optimetrix number: Optimetrix number [id number]. Anesthetic utilized: General. Physical Examination Vital Signs [...] Surgery Unit, and To home ). Normal [facility] Comment on above: Result Comment: Elec [...] MOUTH EVERY 6 HOURS, [facility] ([facility]), 163, cm, 11/04/22 15:03:00 EDT, Height/Length Dosing, 76, kg, 11/04/22 15:03:00 EDT, Weight Dosing Flonase 0.05 mg/inh [place]: 1 spray(s), Nasal, BID, 16 gram, Refill(s) 0, each nostril, [facility] ([facility] ), 167.6, cm, 08/24/22 8:10:00 EDT, Height/Length Dosing, 83.4, kg, 08/24/22 8:10:00 EDT, Weight Dosing amLODIPine 5 mg Tab: 5 mg = 1 tab(s), Oral, Daily, # 90 tab(s), Refills(s) 1, Pharmacy: [facility] #[id number], 163, cm, 05/31/23 10:14:00 EST, Height/Length Dosing, 80.2, kg, 05/31/23 10:14:00 EST, Weight Dosing metformin 500 mg ER Tab: 1,000 mg = 2 tab(s), Oral, Daily, # 180 tab(s), Refills(s) 0, Pharmacy: [facility] #[id number], 163, cm, 05/31/23 10:14:00 EST, Height/Length Dosing, 80.2, kg, 05/31/23 10:14:00 EST, Weight Dosing omeprazole 40 mg Cap-DR: See Instructions, TAKE 1 CAPSULE BY MOUTH DAILY, # 90 cap(s), Refills(s) 3, Pharmacy: [facility] ([facility]), 163, cm, 12/15/22 12:03:00 EDT, Height/Length Dosing, 73.3, kg, 12/15/22 12:03:00 EDT, Weight Dosing rosuvastatin 10 mg Tab: See Instructions, TAKE 1 TABLET BY MOUTH DAILY, # 90 tab(s), Refills(s) 3, Pharmacy: [facility] #[id number], 163, cm, 05/31/23 10:14:00 EST, Height/Length Dosing, 80.2, kg, 05/31/23 10:14:00 EST, Weight Dosing Documented Medications Documented APAP/butalbital/caffeine 325 mg-50 mg-40 mg Tab: Refill(s) 0, Headache Aspir 81: 81 mg, Oral, Daily, Refills(s) 0, Prophylaxis Metamucil: Refills(s) 0, Constipation [facility] DME Prescription: See Instructions, one touch ultra lancets Use to test sugars once a day [facility] Prescription: See Instructions, one touch ultra test strips test sugars once a day Multivitamin, Therapeutic w/ Minerals: Oral, Daily, Refill(s) 0, Prophylaxis Plavix 75 mg Tab: 75 mg = 1 tab(s), Oral, Daily, Refills(s) 0, Blood Thinner dorzolamide ophthalmic 2% solution: 1 drop(s), OPTH, BID, Refill(s) 0, each eye fluticasone Nasal 0.05 mg/inh [place]: Refill(s) 0, 1 Unknown, 0 Refill(s), 1 [place]. furosemide 20 mg Tab: 20 mg = [...] 1 drop(s), OPTH, BID Flonase 0.05 mg/inh [place] 1 spray(s), Nasal, BID fluticasone Nasal 0.05 mg/inh [place] furosemide 20 mg Tab 20 mg = [...] Instructions Multivitamin, Thera (more content not included)... [facility] Comment on above: Result Comment: Elec tronically Signed By: Macario Martinez Jr., DO\.marco a\Date and Time Signed: 06/14/23 12:59 EST Operative Reporton Operative Report [id number]#1.00TIFF [facility] Insurance Correspondenceon 0 06-04-2023 Insurance Correspondence [id number]#1.00TIFF [facility] Consent for Procedure/Surger yon 06-02-2023 Consent for Procedure/Surgery [id number]#1.00TIFF Normal [facility] Formson 06-01-2023 Forms [id number]#1.00TIFF Normal [facility] Ambulatory Visit Summaryon 0 05-31-2023 Ambulatory [...] Misc Prescription (Misc DME Prescription) Misc Prescription ([facility]) albuterol (Albuterol (Eqv-ProAir HFA) 90 mcg/inh inhalation aerosol) aspirin (Aspir 81) clopidogrel (Plavix 75 mg Tab) dorzolamide ophthalmic (dorzolamide ophthalmic 2% solution) fluticasone nasal (Flonase 0.05 mg/inh [place]) fluticasone nasal (fluticasone Nasal 0.05 mg/inh [place]) furosemide (furosemide 20 mg Tab) glimepiride (glimepiride [...] EST With: Flori GARZA, Anjali Omalley Where: [facility] Invalid Interpretation Code [address] [place] [address]- \. br\ Wednesday 1:00 PM EDT \.br\ With:\.br\ Where: [facility] Family Medicine [facility] Family Medicine Office/Clini c Noteon 05-31-2023 Family [...] year 1101F (more content not included)... Normal [facility] Comment on above: Result Comment: Elec [...] 1? oz glass (more content not included)... Normal [facility] Ambulatory Visit Summaryon 0 05-25-2023 Ambulatory Visit [...] 2% solution) fluticasone nasal (Flonase 0.05 mg/inh [place]) fluticasone nasal (fluticasone Nasal 0.05 mg/inh [place]) furosemide (furosemide 20 mg Tab) gabapentin (gabapentin 600 mg Tab) glimepiride (glimepiride 2 mg Tab) irbesartan (irbesartan 300 mg Tab) isosorbide mononitrate latanoprost ophthalmic latanoprost ophthalmic (latanoprost Opth 0.005% Janee) loperamide (loperamide 2 mg Tab) metformin (metformin 500 mg ER Tab) multivitamin with minerals (Multivitamin, Therapeutic w/ Minerals) omega-3 polyunsaturated fatty acids (Stephen-3 Fish Oil) omeprazole (omeprazole 40 mg Cap-DR) [...] EST With: Hermes CASON, Sabino Rosa Where: [facility] Invalid Interpretation Code [address] [address]- \. br\ Wednesday 1:00 PM EDT \.br\ With:\.br\ Where: [facility] Gastroenterology Office/Clin ic Noteon 05-25-2023 Gastroenterology Office/Clinic [...] taking Plavix. Patient was previously referred to [facility] regarding pancreatic cyst. Patient had previous [...] hemorrhoids. Previous review of outside records from [facility] from 03/[address] abdomen/pelvis that revealed prominent amount of fluid in colon suggesting diarrhea, diverticulosis. Patient had previous ultrasound of RUQ 09/2019 at outside facility that revealed 0.7 cm pancreatic cyst and cholelithiasis. Patient reports history of cholecystectomy in 2019. Previous labs at outside facility [address] revealed normal BUN, normal creatinine, normal LFTs, normal H&H. Outside record from [facility] from 04/01/2020 indicated patient had RUQ ultrasound that revealed no acute process, fatty change in liver. Ultrasound of abdomen 12/17/2022 revealed 6 mm pancreatic cyst and radiology recommended MRI with contrast or MRCP in 2 years. MRCP completed at [facility] 02/16/2023 showed 3 mm cystic lesion in pancreatic body. I recommended for patient to be referred to [facility] for further evaluation regarding pancreatic cyst [...] infectious process 03/10/23. Patient was evaluated at [facility]: Dr. Pringle regarding pancreatic cyst 04/28/2023 [...] metaplasia, sto (more content not included)... Normal [facility] Comment on above: Result Comment: Elec tronically Signed By: Flori GARZA, Anjali Omalley\.br\Date and Time Signed: 05/25/23 12:52 EST Patient [...] grapefruit, pineapple, and nury. Vegetables Deep-fried vegetables. [place] Citizen fries. Any vegetables prepared with added fat. [...] reflux di (more content not included)... Normal [facility] Consultation Noteon 05-24-19 Consultation Note [id number]#1.00TIFF [facility] RAD - MISCon 05-24-2023 RAD - MISC [id number]#1.00TIFF [facility] Operative Reporton Operative Report [id number]#1.00TIFF Normal [facility] IntraOperative Documentson 1 06-22-2022 IntraOperative Documents [id number]#1.00TIFF Normal [facility] CNPNon 04-05-2023 CNPN Telephone ([id number]) JEREMIE BENNETT ([id number]) 1940 M Date Time Provider Department 04/05/23 VAISHALI PRINGLE [id number] During your visit today, we recorded the following information about you: Lolly Dumont 04/05/2023 9:55 AM Signed Received records from [facility]. Reports for imaging listed below scanned. 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 - clopidogrel (PLAVIX) 75 mg tablet - furosemide (LASIX) 20 mg tablet Take 20 mg by mouth. - fluticasone (FLONASE) 50 mcg/actuation nasal spray 1 [place]. - omeprazole (PRILOSEC) 40 mg capsule Take [...] by LAMONTE COUCH on 04/06/23 [facility] 04-01-2023 CNOV Office Visit ([id number] ) JEREMIE BENNETT ([id number]) 1940 M Date Time Provider Department 04/01/23 1:00 PM VAISHALI PRINGLE [id number] During your visit today, we recorded the [...] GI re (more content not included)... Normal [facility] CHEMISTRYOrdered By: SYSTEM SYSTEM on 03-10-2023 Albumin [Mass/Vol] 4.0 g/dL Normal 3.3 - 5.0 gm/dL FT Remisol Albumin/Globulin [Mass ratio] 1.2 {ratio} Normal [...] [iU]/d Normal 5 - 43 Int._Unit/ L FT Remisol Bilirubin [Mass/Vol] 0.4 mg/dL Normal 0.0 - 1.1 mg/dL FT Remisol Calcium [Mass/Vol] 9.2 mg/dL Normal 8.9 - 11. 1 mg/dL FT Remisol Chloride [Moles/Vol] 108 mmol/L Normal 101 - 111 mmol/L FT Remisol CO2 [Moles/Vol] 25 mmol/L Normal 21 - 31 mmol/L FT Remisol Creatinine [Mass/Vol] 1.1 mg/dL Normal 0.5 - 1.3 mg/dL FT Remisol GFR/1.73 sq M.predicted among non-blacks MDRD (S/P/Bld) [Vol rate/Area] 67 mL/min/1.73 m2 Normal >=59mL/min /1.73 m2 [facility] Chem S Comment on above: Interpretive Data: C hronic kidney disease could be indicated at eGFR's of less than 60 mL/min/1.73m2. Kidney failure is indicated at less than 15 mL/min/1.73m2. Globulin (S) [Mass/Vol] 3.3 g/dL Normal 1.4 - 4.0 gm/dL FT Remisol Glucose [Mass/Vol] 136 mg/dL Normal 55 - 199 mg/dL [facility] Remisol Comment on above: Interpretive Data: I f this glucose result represents a fasting glucose, interpretation should refer to the following reference range: 55-99 mg/dL Potassium [Moles/Vol] 3.9 mmol/L Normal 3.5 - 5.3 mmol/L [facility] Remisol Protein [Mass/Vol] 7.3 g/dL Normal 6.0 - 7.8 gm/dL [facility] Remisol Sodium [Moles/Vol] 139 mmol/L Normal 135 - 145 mmol/L [facility] Remisol Urea nitrogen [Mass/Vol] 20 mg/dL Normal 5 - 21 mg/dL [facility] Remisol Urea nitrogen/Creatinine [Mass ratio] 18 mg/mg Normal 10 - 20 [facility] Remisol HEMATOLOGYOrdered By: SYSTEM SYSTEM on 03-10-2023 Basophils/100 [...] 14.5 g/dL Normal 13.5 - 17.5 gm/dL FT HemeAutoSS MCH (RBC) [Entitic mass] 30.4 pg Normal 27.0 - 34.0 pg FT HemeAutoSS MCHC (RBC) [Mass/Vol] 33.2 g/dL Normal [...] Negative 3 (03/10/23 12:45 PM) Normal Negative [facility] Man Sero Comment on above: Interpretive Data: T he semi-quantitative detection of elevated levels of fecal lactoferrin is a marker for fecal leukocytes and an indication of intestinal inflammation. CHEMISTRYOrdered By: Yash Shah on 11-23-2022 Albumin DL <= 20 mg/L (U) [Mass/Vol] microgram/mL Normal 0.0 - 19.0 mcg/mL [facility] Remisol Albumin Elph (U) [Mass fraction] mg/dL Invalid Interpretation Code [facility] Remisol Creatinine (U) [Mass/Vol] 15.9 mg/dL Invalid Interpretation Code [facility] Chem S U Prot/Creat Ratio [facility] Invalid Interpretation Code 0.00 - 200.00 [facility] Chem S Comment on above: Result Comment: Unab le to calculate due to Protein being less than analyzer reportable range. CBC AUTO DIFFon 09-29-2022 BASO # 0.1 103/ul Normal 0.0-0.1 [facility] Comment on above: Performed By: #### C BC #### [facility] [address] [address] [address] Ramsey Sanchez Basophils/100 WBC (Bld) 0.7 % Normal 0.2-2.0 [facility] Comment on above: Performed By: #### C BC #### [facility] [address] [address] [address] Ramsey Sanchez EO # 0.2 103/ul Normal 0.0-0.7 [facility] Comment on above: Performed By: #### C BC #### [facility] [address] [address] [address] Ramsey Sanchez Eosinophils/100 WBC (Bld) 1.5 % Normal 0.9-7.0 [facility] Comment on above: Performed By: #### C BC #### [facility] [address] [place] [address] Dr. Ramsey Sanchez Erythrocyte distribution width (RBC) [Ratio] 13.6 % Normal 11.0-15.0 [facility] Comment on above: Performed By: #### C BC #### [facility] [address] [place] [address] Dr. Ramsey Sanchez Hematocrit (Bld) [Volume fraction] 43.5 % Normal 42.0-54.0 [facility] Comment on above: Performed By: #### C BC #### [facility] [address] [place] [address] Dr. Ramsey Sanchez Hemoglobin (Bld) [Mass/Vol] 13.9 g/dL Critically low 14.0-18.0 [facility] Comment on above: Performed By: #### C BC #### [facility] [address] [place] [address] Dr. Ramsey Sanchez IG # 0.29 10e3/ul Critically high 0.00-0.03 [facility] Comment on above: Performed By: #### C BC #### [facility] [facility] [address] [address] [address] Ramsey Sanchez IG % 2.9 % Critically high 0.0-0.5 [facility] Comment on above: Performed By: #### C BC #### [facility] [address] [place] [address] Dr. Ramsey Sanchez LYMPH # 2.1 103/ul Normal 1.2-3.8 [facility] Comment on above: Performed By: #### C BC #### [facility] [address] [place] [address] Dr. Ramsey Sanchez Lymphocytes/100 WBC (Bld) 20.8 % Normal 20.5-60.0 [facility] Comment on above: Performed By: #### C BC #### [facility] [address] [place] [address] Dr. Ramsey Sanchez MANUAL DIFF REQ NO Normal [facility] Comment on above: Performed By: #### C BC #### [facility] [address] [place] [address] Dr. Ramsey Sanchez MCH (RBC) [Entitic mass] 29.6 pg Normal 25.9-34.0 [facility] Comment on above: Performed By: #### C BC #### [facility] [address] [place] [address] Dr. Ramsey Sanchez MCHC (RBC) [Mass/Vol] 32.0 g/dL Normal 29.9-35.2 [facility] Comment on above: Performed By: #### C BC #### [facility] [address] [place] [address] Dr. Ramsey Sanchez MCV (RBC) [Entitic vol] 92.6 fL Normal 80.0-94.0 [facility] Comment on above: Performed By: #### C BC #### [facility] [address] [place] [address] Dr. Ramsey Sanchez MONO # 0.8 103/ul Normal 0.3-0.8 [facility] Comment on above: Performed By: #### C BC #### [facility] [address] [place] [address] Dr. Ramsey Sanchez Monocytes/100 WBC (Bld) 8.3 % Normal 1.7-12.0 [facility] Comment on above: Performed By: #### C BC #### [facility] [address] [place] [address] Dr. Ramsey Sanchez NEUT # 6.5 103/ul Normal 1.4-6.5 [facility] Comment on above: Performed By: #### C BC #### [facility] [address] [place] [address] Dr. Ramsey Sanchez Neutrophils/100 WBC (Bld) 65.8 % Normal 43.0-75.0 [facility] Comment on above: Performed By: #### C BC #### [facility] [address] [place] [address] Dr. Ramsey Sanchez Platelet mean volume (Bld) [Entitic vol] 11.1 fL Normal 9.5-13.5 [facility] Comment on above: Performed By: #### C BC #### [facility] [address] [place] [address] Dr. Ramsey Sanchez PLT 198 103/ul Normal 150-450 [facility] Comment on above: Performed By: #### C BC #### [facility] [address] [place] [address] Dr. Ramsey Sanchez RBC 4.70 106/ul Normal 4.70-6.10 [facility] Comment on above: Performed By: #### C BC #### [facility] [address] [place] [address] Dr. Ramsey Sanchez WBC 9.9 103/ul Normal 4.0-11.0 [facility] Comment on above: Performed By: #### C BC #### [facility] [address] [place] [address] Dr. Ramsey Sanchez ER URINE PROFILEon 3 Bilirubin Ql (U) Negative Normal NEGATIVE [facility] Comment on above: Performed By: #### E RUR #### [facility] [address] [place] [address] Dr. Ramsey Sanchez Clarity (U) CLEAR Normal CLEAR [facility] Comment on above: Performed By: #### E RUR #### [facility] [address] [place] [address] Dr. Ramsey Sanchez Color (U) YELLOW Normal YELLOW [facility] Comment on above: Performed By: #### E RUR #### [facility] [address] [place] [address] Dr. Ramsey IVORY A micrscopic examina tion will be performed if indicated. Normal [facility] Comment on above: Performed By: #### E RUR #### [facility] [address] [place] [address] Dr. Ramsey Sanchez Glucose Ql (U) Negative Normal NEGATIVE [facility] Comment on above: Performed By: #### E RUR #### [facility] [address] [place] [address] Dr. Ramsey Sanchez Hemoglobin Ql (U) Negative Normal NEGATIVE [facility] Comment on above: Performed By: #### E RUR #### [facility] [address] [place] [address] Dr. Ramsey Sanchez Ketones Ql (U) Negative Normal NEGATIVE [facility] Comment on above: Performed By: #### E RUR #### [facility] [address] [place] [address] Dr. Ramsey Sanchez LEUKOCYTES Negative Normal NEGATIVE [facility] Comment on above: Performed By: #### E RUR #### [facility] [address] [place] [address] Dr. Ramsey Sanchez Nitrite Ql (U) Negative Normal NEGATIVE [facility] Comment on above: Performed By: #### E RUR #### [facility] [address] [place] [address] Dr. Ramsey Sanchez pH (U) 5.5 [pH] Normal 5-9 [facility] Comment on above: Performed By: #### E RUR #### [facility] [address] [place] [address] Dr. Ramsey Sanchez SPEC GRAVITY 1.020 Normal 1.005-<=1. 025 [facility] Comment on above: Performed By: #### E RUR #### [facility] [address] [place] [address] Dr. Ramsey Sanchez UA PROTEIN Negative Normal NEGATIVE/ TRACE [facility] Comment on above: Performed By: #### E RUR #### [facility] [address] [place] [address] Dr. Ramsey Sanchez UR MICRO IND NOT INDICATED Normal [facility] Comment on above: Performed By: #### E RUR #### [facility] [address] [place] [address] Dr. Ramsey Sanchez Urobilinogen Qn (U) 0.2 {Leatha'U}/dL Normal 0.2 - 1. 0 [facility] Comment on above: Performed By: #### E RUR #### [facility] [address] [place] [address] Dr. Ramsey Sanchez LACTATE/LACTIC ACIDon 2022 Lactate [Moles/Vol] 1.7 mmol/L Normal 0.4-2.0 [facility] Comment on above: Performed By: #### L ACT #### [facility] [address] [place] [address] Dr. Ramsey Sanchez PROF 14(COMP METB)on 023 Albumin [Mass/Vol] 3.1 g/dL Critically low 3.4-5.0 [facility] Comment on above: Performed By: #### C LISANDRO HSTROPN #### [facility] [address] [place] [address] Dr. Ramsey Sanchez Albumin/Globulin [Mass ratio] 0.8 {ratio} Normal [facility] Comment on above: Performed By: #### C LISANDRO HSTROPN #### [facility] [address] [place] [address] Dr. Ramsey Sanchez ALP [Catalytic activity/Vol] 73 U/L Normal 46-116 [facility] Comment on above: Performed By: #### C LISANDRO HSTROPN #### [facility] [address] [place] [address] Dr. Ramsey Sanchez ALT [Catalytic activity/Vol] 22 U/L Normal 16-63 [facility] Comment on above: Performed By: #### C LISANDRO HSTROPN #### [facility] [address] [address] [address] Ramsey Sanchez Anion gap [Moles/Vol] 13.5 mmol/L Normal [facility] Comment on above: Performed By: #### C MP, HSTROPN #### [facility] [address] [address] [address] Ramsey Sanchez AST [Catalytic activity/Vol] 26 U/L Normal 15-37 [facility] Comment on above: Performed By: #### C MP, HSTROPN #### [facility] [address] [address] [address] Ramsey Sanchez Bilirubin [Mass/Vol] 0.4 mg/dL Normal 0.2-1.0 [facility] Comment on above: Performed By: #### C MP, HSTROPN #### [facility] [address] [address] [address] Ramsey Sanchez Calcium [Mass/Vol] 8.4 mg/dL Critically low 8.5-10.1 [facility] Comment on above: Performed By: #### C MP, HSTROPN #### [facility] [address] [address] [address] aRmsey Sanchez Chloride [Moles/Vol] 107 mmol/L Normal 98-107 [facility] Comment on above: Performed By: #### C MP, HSTROPN #### [facility] [address] [address] [address] Ramsey Sanchez CO2 [Moles/Vol] 26.1 mmol/L Normal 21.0-32.0 [facility] Comment on above: Performed By: #### C MP, HSTROPN #### [facility] [address] [address] [address] Ramsey Sanchez Creatinine [Mass/Vol] 0.94 mg/dL Normal 0.70-1.30 [facility] Comment on above: Performed By: #### C MP, HSTROPN #### [facility] [address] [address] [address] Ramsey Sanchez EGFR-AF MOROCCAN >60 Normal >=60 [facility] Comment on above: Performed By: #### C MP, HSTROPN #### [facility] [address] [address] [address] Ramsey Sanchez EGFR-NON AF MOROCCAN >60 Normal >=60 [facility] Comment on above: Performed By: #### C MP, HSTROPN #### [facility] [address] [address] [address] Ramsey Sanchez Globulin (S) [Mass/Vol] 3.7 g/dL Normal [facility] Comment on above: Performed By: #### C MP, HSTROPN #### [facility] [address] [address] [address] Ramsey Sanchez Glucose [Mass/Vol] 118 mg/dL Critically high 74-106 [facility] Comment on above: Performed By: #### C MP, HSTROPN #### [facility] [address] [place] [address] Dr. Ramsey Sanchez Potassium [Moles/Vol] 3.6 mmol/L Normal 3.5-5.1 [facility] Comment on above: Performed By: #### C MP, HSTROPN #### [facility] [address] [address] [address] Ramsey Sanchez Protein [Mass/Vol] 6.8 g/dL Normal 6.4-8.2 [facility] Comment on above: Performed By: #### C MP, HSTROPN #### [facility] [address] [address] [address] Ramsey Sanchez Sodium [Moles/Vol] 143 mmol/L Normal 136-145 [facility] Comment on above: Performed By: #### C MP, HSTROPN #### [facility] [address] [place] [address] Dr. Ramsey Sanchez Urea nitrogen [Mass/Vol] 19.0 mg/dL Critically high 7.0-18.0 [facility] Comment on above: Performed By: #### C MP, HSTROPN #### [facility] [address] [place] [address] Dr. Ramsey Sanchez Urea nitrogen/Creatinine [Mass ratio] 20.2 mg/mg Normal [facility] Comment on above: Performed By: #### C LISANDRO HSTROPN #### [facility] [address] [address] [address] Ramsey Sanchez TROPONIN, HIGH SENSITIVITYon 09-29-2022 HSTROP 9.8 pg/mL Normal 4.0-76.1 [facility] Comment on above: Result Comment: CUT- OFF POINTS HAVE BEEN ESTABLISHED BASED ON THE FOURTH UNIVERSAL DEFINITIONS OF MYOCARDIAL INFARCTION. THE UPPER REFERENCE LIMIT (URL) OF TROPONIN, DEFINED THE 99TH PERCENTILE OF cTnI DISTRIBUTION IN A REFERENCE POPULATION, HAS BEEN CONFIRMED THE DECISION THRESHOLD FOR GA DIAGNOSIS. Performed By: #### C LISANDRO HSTROPN #### [facility] [address] [place] [address] Dr. Ramsey Sanchez XR CHEST 1 Von [...] hardware and overlying objects out of the [id number]. Electronically authenticated by: ALANNA CARLOS Date: 2022-09-29 16:37 Normal [facility] BNPon 09-25-2022 Natriuretic peptide B (Bld) [Mass/Vol] 720.0 pg/mL Normal <=1,800.0 [facility] Comment on above: Performed By: #### C XSTOOL #### [facility] [address] [place] [address] Dr. Ramsey Sanchez CARDIAC RAFI ADMITon 023 CK [Catalytic activity/Vol] 198 U/L Normal 39-308 [facility] Comment on above: Performed By: #### C XSTOOL #### [facility] [address] [place] [address] Dr. Ramsey Sanchez CK.MB [Mass/Vol] 2.62 ng/mL Normal <=3.60 [facility] Comment on above: Performed By: #### C XSTOOL #### [facility] [address] [place] [address] Dr. Ramsey Sanchez HSTROP 8.8 pg/mL Normal 4.0-76.1 [facility] Comment on above: Result Comment: CUT- OFF POINTS HAVE BEEN ESTABLISHED BASED ON THE FOURTH UNIVERSAL DEFINITIONS OF MYOCARDIAL INFARCTION. THE UPPER REFERENCE LIMIT (URL) OF TROPONIN, DEFINED THE 99TH PERCENTILE OF cTnI DISTRIBUTION IN A REFERENCE POPULATION, HAS BEEN CONFIRMED THE DECISION THRESHOLD FOR GA DIAGNOSIS. Performed By: #### C XSTOOL #### [facility] [address] [place] [address] Dr. Ramsey Sanchez MARILYN 69 ng/mL Normal 16-96 [facility] Comment on above: Performed By: #### C XSTOOL #### [facility] [address] [place] [address] Dr. Ramsey Sanchez CBC AUTO DIFFon 09-25-2022 BASO # 0.0 103/ul Normal 0.0-0.1 [facility] Comment on above: Performed By: #### C BC #### [facility] [address] [place] [address] Dr. Ramsey Sanchez Basophils/100 WBC (Bld) 0.2 % Normal 0.2-2.0 [facility] Comment on above: Performed By: #### C BC #### [facility] [address] [place] [address] Dr. Ramsey Sanchez EO # 0.0 103/ul Normal 0.0-0.7 [facility] Comment on above: Performed By: #### C BC #### [facility] [address] [place] [address] Dr. Ramsey Sanchez Eosinophils/100 WBC (Bld) 0.1 % Critically low 0.9-7.0 [facility] Comment on above: Performed By: #### C BC #### [facility] [address] [place] [address] Dr. Ramsey Sanchez Erythrocyte distribution width (RBC) [Ratio] 14.0 % Normal 11.0-15.0 [facility] Comment on above: Performed By: #### C BC #### [facility] [address] [place] [address] Dr. Ramsey Sanchez Hematocrit (Bld) [Volume fraction] 45.4 % Normal 42.0-54.0 [facility] Comment on above: Performed By: #### C BC #### [facility] [address] [place] [address] Dr. Ramsey Sanchez Hemoglobin (Bld) [Mass/Vol] 14.4 g/dL Normal 14.0-18.0 [facility] Comment on above: Performed By: #### C BC #### [facility] [address] [place] [address] Dr. Ramsey Sanchez IG # 0.08 10e3/ul Critically high 0.00-0.03 [facility] Comment on above: Performed By: #### C BC #### [facility] [address] [place] [address] Dr. Ramsey Sanchez IG % 0.9 % Critically high 0.0-0.5 [facility] Comment on above: Performed By: #### C BC #### [facility] [address] [place] [address] Dr. Ramsey Sanchez LYMPH # 1.6 103/ul Normal 1.2-3.8 [facility] Comment on above: Performed By: #### C BC #### [facility] [address] [place] [address] Dr. Ramsey Sanchez Lymphocytes/100 WBC (Bld) 17.9 % Critically low 20.5-60.0 [facility] Comment on above: Performed By: #### C BC #### [facility] [address] [place] [address] Dr. Ramsey Sanchez MANUAL DIFF REQ NO Normal [facility] Comment on above: Performed By: #### C BC #### [facility] [address] [place] [address] Dr. Ramsey Sanchez MCH (RBC) [Entitic mass] 29.8 pg Normal 25.9-34.0 [facility] Comment on above: Performed By: #### C BC #### [facility] [address] [place] [address] Dr. Ramsey Sanchez MCHC (RBC) [Mass/Vol] 31.7 g/dL Normal 29.9-35.2 [facility] Comment on above: Performed By: #### C BC #### [facility] [address] [place] [address] Dr. Ramsey Sanchez MCV (RBC) [Entitic vol] 94.0 fL Normal 80.0-94.0 [facility] Comment on above: Performed By: #### C BC #### [facility] [address] [place] [address] Dr. Ramsey Sanchez MONO # 0.9 103/ul Critically high 0.3-0.8 [facility] Comment on above: Performed By: #### C BC #### [facility] [address] [place] [address] Dr. Ramsey Sanchez Monocytes/100 WBC (Bld) 9.6 % Normal 1.7-12.0 [facility] Comment on above: Performed By: #### C BC #### [facility] [address] [place] [address] Dr. Ramsey Sanchez NEUT # 6.3 103/ul Normal 1.4-6.5 [facility] Comment on above: Performed By: #### C BC #### [facility] [address] [place] [address] Dr. Ramsey Sanchez Neutrophils/100 WBC (Bld) 71.3 % Normal 43.0-75.0 [facility] Comment on above: Performed By: #### C BC #### [facility] [address] [place] [address] Dr. Ramsey Sanchez Platelet mean volume (Bld) [Entitic vol] 11.0 fL Normal 9.5-13.5 [facility] Comment on above: Performed By: #### C BC #### [facility] [address] [place] [address] Dr. Ramsey Sanchez PLT 203 103/ul Normal 150-450 [facility] Comment on above: Performed By: #### C BC #### [facility] [address] [place] [address] Dr. Ramsey Sanchez RBC 4.83 106/ul Normal 4.70-6.10 [facility] Comment on above: Performed By: #### C BC #### [facility] [address] [place] [address] Dr. Ramsey Sanchez WBC 8.9 103/ul Normal 4.0-11.0 [facility] Comment on above: Performed By: #### C BC #### [facility] [address] [place] [address] Dr. Ramsey Sanchez LACTATE/LACTIC ACIDon 2022 Lactate [Moles/Vol] 1.0 mmol/L Normal 0.4-2.0 [facility] Comment on above: Performed By: #### C BC #### [facility] [address] [place] [address] Dr. Ramsey Sanchez PROF 14(COMP METB)on 023 Albumin [Mass/Vol] 3.7 g/dL Normal 3.4-5.0 [facility] Comment on above: Performed By: #### C XSTOOL #### [facility] [address] [place] [address] Dr. Ramsey Sanchez Albumin/Globulin [Mass ratio] 0.9 {ratio} Normal [facility] Comment on above: Performed By: #### C XSTOOL #### [facility] [address] [place] [address] Dr. Ramsey Sanchez ALP [Catalytic activity/Vol] 68 U/L Normal 46-116 [facility] Comment on above: Performed By: #### C XSTOOL #### [facility] [address] [place] [address] Dr. Ramsey Sanchez ALT [Catalytic activity/Vol] 23 U/L Normal 16-63 [facility] Comment on above: Performed By: #### C XSTOOL #### [facility] [address] [place] [address] Dr. Ramsey Sanchez Anion gap [Moles/Vol] 12.6 mmol/L Normal [facility] Comment on above: Performed By: #### C XSTOOL #### [facility] [address] [address] [address] Ramsey Sanchez AST [Catalytic activity/Vol] 21 U/L Normal 15-37 [facility] Comment on above: Performed By: #### C XSTOOL #### [facility] [address] [place] [address] Dr. Ramsey Sanchez Bilirubin [Mass/Vol] 0.3 mg/dL Normal 0.2-1.0 [facility] Comment on above: Performed By: #### C XSTOOL #### [facility] [address] [place] [address] Dr. Ramsey Sanchez Calcium [Mass/Vol] 8.8 mg/dL Normal 8.5-10.1 [facility] Comment on above: Performed By: #### C XSTOOL #### [facility] [address] [place] [address] Dr. Ramsey Sanchez Chloride [Moles/Vol] 104 mmol/L Normal 98-107 [facility] Comment on above: Performed By: #### C XSTOOL #### [facility] [address] [place] [address] Dr. Ramsey Sanchez CO2 [Moles/Vol] 26.7 mmol/L Normal 21.0-32.0 [facility] Comment on above: Performed By: #### C XSTOOL #### [facility] [address] [place] [address] Dr. Ramsey Sanchez Creatinine [Mass/Vol] 1.27 mg/dL Normal 0.70-1.30 [facility] Comment on above: Performed By: #### C XSTOOL #### [facility] [address] [place] [address] Dr. Ramsey Sanchez EGFR-AF MOROCCAN >60 Normal >=60 [facility] Comment on above: Performed By: #### C XSTOOL #### [facility] [address] [address] [address] Ramsey Sanchez EGFR-NON AF MOROCCAN 54 mL/min/1.73m2 Critically low >=60 [facility] Comment on above: Performed By: #### C XSTOOL #### [facility] [address] [address] [address] Ramsey Sanchez Globulin (S) [Mass/Vol] 3.9 g/dL Normal [facility] Comment on above: Performed By: #### C XSTOOL #### [facility] [address] [address] [address] Ramsey Sanchez Glucose [Mass/Vol] 114 mg/dL Critically high 74-106 [facility] Comment on above: Performed By: #### C XSTOOL #### [facility] [address] [address] [address] Ramsey Sanchez Potassium [Moles/Vol] 4.3 mmol/L Normal 3.5-5.1 [facility] Comment on above: Performed By: #### C XSTOOL #### [facility] [address] [address] [address] Ramsey Sanchez Protein [Mass/Vol] 7.6 g/dL Normal 6.4-8.2 [facility] Comment on above: Performed By: #### C XSTOOL #### [facility] [address] [address] [address] Ramsey Sanchez Sodium [Moles/Vol] 139 mmol/L Normal 136-145 [facility] Comment on above: Performed By: #### C XSTOOL #### [facility] [address] [address] [address] Ramsey Sanchez Urea nitrogen [Mass/Vol] 19.0 mg/dL Critically high 7.0-18.0 [facility] Comment on above: Performed By: #### C XSTOOL #### [facility] [address] [address] [address] Ramsey Sanchez Urea nitrogen/Creatinine [Mass ratio] 15.0 mg/mg Normal [facility] Comment on above: Performed By: #### C XSTOOL #### [facility] [address] [address] [address] Ramsey Sanchez XR CHEST 1 Von [...] by: TRACY HIGHTOWER Date: 2022-09-24 23:29 Normal [facility] COVID + FLU Quick Testingon 09-22-2022 SARS-CoV-2 (COVID-19) RNA MICHELLE+probe Ql (Unsp spec) Positive [facility] Other COVID + FLU Quick Testing Negative [facility] Other POINT OF CARE GLUCOSEon 07-16 Glucose [Mass/Vol] 146 mg/dL Critically high 74-106 [facility] Comment on above: Performed By: #### C XSTOOL #### [facility] [address] [place] [address] Dr. Ramsey Sanchez US ARTERY UP EXT BILon 04-16 US ARTERY UP EXT VARGAS EXAMINATION: US ARTERY UP EXT VARGAS HISTORY: Pain in upper limb COMPARISON: No [...] ERWIN FALCON Date: 2022-04-16 17:21 Normal [facility] LACTOFERRIN FECAL QUANTon Lactoferrin, Fecal, Quant. 1.43 ug/mL(g) Normal 0.00-7.24 [facility] Comment on above: Result Comment: . [...] (IBS). Performed By: #### C XSTOOL #### [facility] [address] [place] [address] Dr. Ramsey Sanchez CBC AUTO DIFFon 03-10-2022 BASO # 0.1 103/ul Normal 0.0-0.1 [facility] Comment on above: Performed By: #### C BC #### [facility] [address] [place] [address] Dr. Ramsey Sanchez Basophils/100 WBC (Bld) 0.9 % Normal 0.2-2.0 [facility] Comment on above: Performed By: #### C BC #### [facility] [address] [place] [address] Dr. Ramsey Sanchez EO # 0.3 103/ul Normal 0.0-0.7 [facility] Comment on above: Performed By: #### C BC #### [facility] [address] [place] [address] Dr. Ramsey Sanchez Eosinophils/100 WBC (Bld) 2.6 % Normal 0.9-7.0 [facility] Comment on above: Performed By: #### C BC #### [facility] [address] [place] [address] Dr. Ramsey Sanchez Erythrocyte distribution width (RBC) [Ratio] 13.2 % Normal 11.0-15.0 [facility] Comment on above: Performed By: #### C BC #### [facility] [address] [address] [address] Ramsey Sanchez Hematocrit (Bld) [Volume fraction] 46.1 % Normal 42.0-54.0 [facility] Comment on above: Performed By: #### C BC #### [facility] [address] [place] [address] Dr. Ramsey Sanchez Hemoglobin (Bld) [Mass/Vol] 14.5 g/dL Normal 14.0-18.0 [facility] Comment on above: Performed By: #### C BC #### [facility] [address] [place] [address] Dr. Ramsey Sanchez IG # 0.15 10e3/ul Critically high 0.00-0.03 [facility] Comment on above: Performed By: #### C BC #### [facility] [address] [place] [address] Dr. Ramsey Sanchez IG % 1.3 % Critically high 0.0-0.5 [facility] Comment on above: Performed By: #### C BC #### [facility] [address] [place] [address] Dr. Ramsey Sanchez LYMPH # 2.7 103/ul Normal 1.2-3.8 [facility] Comment on above: Performed By: #### C BC #### [facility] [address] [place] [address] Dr. Ramsey Sanchez Lymphocytes/100 WBC (Bld) 23.0 % Normal 20.5-60.0 [facility] Comment on above: Performed By: #### C BC #### [facility] [address] [place] [address] Dr. Ramsey Sanchez MANUAL DIFF REQ NO Normal [facility] Comment on above: Performed By: #### C BC #### [facility] [address] [place] [address] Dr. Ramsey Sanchez MCH (RBC) [Entitic mass] 31.0 pg Normal 25.9-34.0 [facility] Comment on above: Performed By: #### C BC #### [facility] [address] [address] [address] Ramsey Sanchez MCHC (RBC) [Mass/Vol] 31.5 g/dL Normal 29.9-35.2 [facility] Comment on above: Performed By: #### C BC #### [facility] [address] [address] [address] Ramsey Sanchez MCV (RBC) [Entitic vol] 98.5 fL Critically high 80.0-94.0 [facility] Comment on above: Performed By: #### C BC #### [facility] [address] [address] [address] Ramsey Sanchez MONO # 0.9 103/ul Critically high 0.3-0.8 [facility] Comment on above: Performed By: #### C BC #### [facility] [address] [address] [address] Ramsey Sanchez Monocytes/100 WBC (Bld) 7.4 % Normal 1.7-12.0 [facility] Comment on above: Performed By: #### C BC #### [facility] [address] [address] [address] Ramsey Sanchez NEUT # 7.6 103/ul Critically high 1.4-6.5 [facility] Comment on above: Performed By: #### C BC #### [facility] [address] [address] [address] Ramsey Sanchez Neutrophils/100 WBC (Bld) 64.8 % Normal 43.0-75.0 [facility] Comment on above: Performed By: #### C BC #### [facility] [address] [address] [address] Ramsey Sanchez Platelet mean volume (Bld) [Entitic vol] 11.5 fL Normal 9.5-13.5 [facility] Comment on above: Performed By: #### C BC #### [facility] [address] [address] [address] Ramsey Sanchez PLT 243 103/ul Normal 150-450 [facility] Comment on above: Performed By: #### C BC #### [facility] [address] [address] [address] Ramsey Sanchez RBC 4.68 106/ul Critically low 4.70-6.10 [facility] Comment on above: Performed By: #### C BC #### [facility] [address] [place] [address] Dr. Ramsey Sanchez WBC 11.7 103/ul Critically high 4.0-11.0 [facility] Comment on above: Performed By: #### C BC #### [facility] [address] [place] [address] Dr. Ramsey Sanchez GLYCOHEMOGLOBIN A1Con 2021 ADA RECOMMENDATION SEE BELOW Normal [facility] Comment on above: Result Comment: ADA RECOMMENDED LIMIT 4.0 - 6.0 ADA THERAPEUTIC TARGET < 7.0 ACTION SUGGESTED > 7.0 Performed By: #### A 1C #### [facility] [address] [place] [address] Dr. Ramsey Sanchez Glucose [Mass/Vol] 123 mg/dL Normal [facility] Comment on above: Performed By: #### A 1C #### [facility] [address] [place] [address] Dr. Ramsey Sanchez HbA1c (Bld) [Mass fraction] 5.9 % Normal 4.5-6.2 [facility] Comment on above: Performed By: #### A 1C #### [facility] [address] [place] [address] Dr. Ramsey Sanchez LIPID PROFILEon 03-10-2022 CHOL-HDL RATIO NORM SEE BELOW Normal [facility] Comment on above: Result Comment: 3.3 - 4.4 LOW RISK 4.4 - 7.1 AVERAGE RISK 7.1 - 11.0 MODERATE RISK >11.0 HIGH RISK Performed By: #### C BC #### [facility] [address] [place] [address] Dr. Ramsey Sanchez Cholesterol [Mass/Vol] 121 mg/dL Normal <=200 [facility] Comment on above: Performed By: #### C BC #### [facility] [address] [place] [address] Dr. Ramsey Sanchez Cholesterol in HDL [Mass/Vol] 30 mg/dL Critically low 40-60 [facility] Comment on above: Performed By: #### C BC #### [facility] [address] [address] [address] Ramsey Sanchez Cholesterol in LDL [Mass/Vol] 47.6 mg/dL Normal [facility] Comment on above: Performed By: #### C BC #### [facility] [address] [address] [address] Ramsey Sanchez Cholesterol.total/C holesterol in HDL [Mass ratio] 4.0 {ratio} Normal [facility] Comment on above: Performed By: #### C BC #### [facility] [address] [place] [address] Dr. Ramsey Sanchez HDL NORMAL > or = 60 mg/dl - LO W CARDIOVASCULAR RISK <40 mg/dl - HIGH CARDIOVASCULAR RISK Normal [facility] Comment on above: Performed By: #### C BC #### [facility] [address] [address] [address] Ramsey Sanchez LDL CALC NORMAL SEE BELOW Normal [facility] Comment on above: Result Comment: <100 mg/dl OPTIMAL 100 - 129 mg/dl NEAR OR ABOVE OPTIMAL 130 - 159 mg/dl BORDERLINE HIGH 160 - 189 mg/dl HIGH >190 mg/dl VERY HIGH Performed By: #### C BC #### [facility] [address] [place] [address] Dr. Ramsey Sanchez Triglyceride [Mass/Vol] 217 mg/dL Critically high <=150 [facility] Comment on above: Performed By: #### C BC #### [facility] [address] [place] [address] Dr. Ramsey Sanchez VLDL CALC 43.4 mg/dL Normal [facility] Comment on above: Performed By: #### C BC #### [facility] [address] [place] [address] Dr. Ramsey Sanchez LIVER PROFILEon 03-10-2022 Albumin [Mass/Vol] 3.9 g/dL Normal 3.4-5.0 [facility] Comment on above: Performed By: #### C BC #### [facility] [address] [place] [address] Dr. Ramsey Sanchez Albumin/Globulin [Mass ratio] 1.1 {ratio} Normal [facility] Comment on above: Performed By: #### C BC #### [facility] [address] [place] [address] Dr. Ramsey Sanchez ALP [Catalytic activity/Vol] 75 U/L Normal 46-116 [facility] Comment on above: Performed By: #### C BC #### [facility] [address] [place] [address] Dr. Ramsey Sanchez ALT [Catalytic activity/Vol] 21 U/L Normal 16-63 [facility] Comment on above: Performed By: #### C BC #### [facility] [address] [place] [address] Dr. Ramsey Sanchez AST [Catalytic activity/Vol] 17 U/L Normal 15-37 [facility] Comment on above: Performed By: #### C BC #### [facility] [address] [place] [address] Dr. Ramsey Sanchez BILI, CONJUGATED 0.1 mg/dL Normal 0.0-0.2 [facility] Comment on above: Performed By: #### C BC #### [facility] [address] [place] [address] Dr. Ramsey Sanchez Bilirubin [Mass/Vol] 0.4 mg/dL Normal 0.2-1.0 [facility] Comment on above: Performed By: #### C BC #### [facility] [address] [place] [address] Dr. Ramsey Sanchez Globulin (S) [Mass/Vol] 3.5 g/dL Normal [facility] Comment on above: Performed By: #### C BC #### [facility] [address] [place] [address] Dr. Ramsey Sanchez Protein [Mass/Vol] 7.4 g/dL Normal 6.4-8.2 [facility] Comment on above: Performed By: #### C BC #### [facility] [address] [place] [address] Dr. Ramsey Sanchez MICROALBUMIN, RAND URon 10- mALB <1.3 Normal <=30.0 [facility] Comment on above: Performed By: #### M ALBR #### [facility] [address] [place] [address] Dr. Ramsey Sanchez PROF CHEM 8 (BAS METB)on Anion gap [Moles/Vol] 12.6 mmol/L Normal [facility] Comment on above: Performed By: #### C BC #### [facility] [address] [place] [address] Dr. Ramsey Sanchez Calcium [Mass/Vol] 8.9 mg/dL Normal 8.5-10.1 [facility] Comment on above: Performed By: #### C BC #### [facility] [address] [place] [address] Dr. Ramsey Sanchez Chloride [Moles/Vol] 103 mmol/L Normal 98-107 [facility] Comment on above: Performed By: #### C BC #### [facility] [address] [place] [address] Dr. Ramsey Sanchez CO2 [Moles/Vol] 28.5 mmol/L Normal 21.0-32.0 [facility] Comment on above: Performed By: #### C BC #### [facility] [address] [place] [address] Dr. Ramsey Sanchez Creatinine [Mass/Vol] 0.89 mg/dL Normal 0.70-1.30 [facility] Comment on above: Performed By: #### C BC #### [facility] [address] [place] [address] Dr. Ramsey Sanchez EGFR-AF MOROCCAN >60 Normal >=60 [facility] Comment on above: Performed By: #### C BC #### [facility] [address] [place] [address] Dr. Ramsey Sanchez EGFR-NON AF MOROCCAN >60 Normal >=60 [facility] Comment on above: Performed By: #### C BC #### [facility] [address] [place] [address] Dr. Ramsey Sanchez Glucose [Mass/Vol] 102 mg/dL Normal 74-106 [facility] Comment on above: Performed By: #### C BC #### [facility] [address] [place] [address] Dr. Ramsey Sanchez Potassium [Moles/Vol] 4.1 mmol/L Normal 3.5-5.1 [facility] Comment on above: Performed By: #### C BC #### [facility] [address] [place] [address] Dr. Ramsey Sanchez Sodium [Moles/Vol] 140 mmol/L Normal 136-145 [facility] Comment on above: Performed By: #### C BC #### [facility] [address] [place] [address] Dr. Ramsey Sanchez Urea nitrogen [Mass/Vol] 16.0 mg/dL Normal 7.0-18.0 [facility] Comment on above: Performed By: #### C BC #### [facility] [address] [place] [address] Dr. Ramsey Sanchez Urea nitrogen/Creatinine [Mass ratio] 18.0 mg/mg Normal [facility] Comment on above: Performed By: #### C BC #### [facility] [address] [place] [address] Dr. Ramsey Sanchez STOOL CULTUREon 03-10-2022 Campylobacter Culture Final report Normal [facility] Comment on above: Performed By: #### C XSTOOL #### [facility] [address] [place] [address] Dr. Ramsey Sanchez E coli Shiga Toxin EIA Negative Normal Negative [facility] Comment on above: Performed By: #### C XSTOOL #### [facility] [address] [place] [address] Dr. Ramsey Sanchez Result 1 Comment Normal [facility] Comment on above: Result Comment: No S almonella or Shigella recovered. Performed By: #### C XSTOOL #### [facility] [address] [place] [address] Dr. Ramsey Sanchez Result Comment: No C ampylobacter species isolated. Salmonella/Shigella Screen Final report Normal [facility] Comment on above: Performed By: #### C XSTOOL #### [facility] [address] [address] [address] Ramsey Sanchez VITAMIN D 25 OHon 03-10-2022 VIT D 25-OH 40.2 ng/mL Normal [facility] Comment on above: Performed By: #### V ITAD #### [facility] [address] [address] [address] Ramsey Sanchez VIT D RANGES SEE BELOW Normal [facility] Comment on above: Result Comment: <20 ng/mL Vit D deficient 20 - <30 ng/mL Vit D insufficient 30 - 100 ng/mL Vit D sufficient >100 ng/mL Potential Toxicity Performed By: #### V ITAD #### [facility] [address] [address] [address] Ramsey Sanchez POC GLUCOSE LABon 08-31-2019 Glucose [Mass/Vol] 120 mg/dL High 70-100 [facility] Comment on above: Performed By: #### 8 [id number] #### [facility] [address] [place] [address], [place] Glucose [Mass/Vol] 114 mg/dL High 70-100 [facility] Comment on above: Performed By: #### 8 [id number] #### [facility] [address] [place] [address], [place] Glucose [Mass/Vol] 136 mg/dL High 70-100 [facility] Comment on above: Performed By: #### 8 [id number] #### [facility] [address] [place] [address], [place] BASIC METABOLIC PANELon 08-15 Calcium [Mass/Vol] 9.3 mg/dL Normal 8.6-10.3 [facility] Comment on above: Performed By: #### 0 0071 #### [facility] [address] [place] [address], [place] Chloride [Moles/Vol] 103 mmol/L Normal 98-107 [facility] Comment on above: Performed By: #### 0 [id number] #### [facility] [address] [place] [address], [place] CO2 [Moles/Vol] 27 mmol/L Normal 21-31 [facility] Comment on above: Performed By: #### 0 [id number] #### [facility] [address] [place] [address], [place] Creatinine [Mass/Vol] 1.04 mg/dL Normal 0.70-1.30 [facility] Comment on above: Performed By: #### 0 0071 #### [facility] [address] [place] [address], [place] GFR/1.73 sq M predicted among blacks MDRD (S/P/Bld) [Vol rate/Area] mL/min/{1.73_m2} Normal >60 [facility] Comment on above: Result Comment: Calc ulation may not be valid for patients over 70 years Performed By: #### 0 [id number] #### [facility] [address] [place] [address], [place] GFR/1.73 sq M predicted among non-blacks MDRD (S/P/Bld) [Vol rate/Area] mL/min/{1.73_m2} Normal >60 [facility] Comment on above: Result Comment: Calc ulation may not be valid for patients over 70 years Performed By: #### 0 [id number] #### [facility] [address] [place] [address], [place] Glucose [Mass/Vol] 128 mg/dL High 70-100 [facility] Comment on above: Performed By: #### 0 [id number] #### [facility] [address] [place] [address], [place] Potassium [Moles/Vol] 4.2 mmol/L Normal 3.5-5.1 [facility] Comment on above: Performed By: #### 0 [id number] #### [facility] [address] Sodium [Moles/Vol] 139 mmol/L Normal 136-145 [facility] Comment on above: Performed By: #### 0 1 #### [facility] [address] Urea nitrogen [Mass/Vol] 20 mg/dL Normal 7-25 [facility] Comment on above: Performed By: #### 0 1 #### [facility] [address] CBC COMPLETE BLOOD COUNT08-30-2019 Erythrocyte distribution width (RBC) [Ratio] 13.9 % Normal 11.5-15.0 [facility] Comment on above: Performed By: #### 5 [id number] #### [facility] [address] Hematocrit (Bld) [Volume fraction] 44.9 % Normal 39.0-50.0 [facility] Comment on above: Performed By: #### 5 [id number] #### [facility] [address] Hemoglobin (Bld) [Mass/Vol] 14.5 g/dL Normal 13.0-17.0 [facility] Comment on above: Performed By: #### 5 [id number] #### [facility] [address] [facility]. [address] MCH (RBC) [Entitic mass] 30.7 pg Normal 27.0-33.0 [facility] Comment on above: Performed By: #### 5 0608 #### [facility] [address] MCHC (RBC) [Mass/Vol] 32.3 g/dL Normal 32.0-35.0 [facility] Comment on above: Performed By: #### 5 0608 #### [facility] [address] [place] [address], [facility] MCV (RBC) [Entitic vol] 95.1 fL Normal 82.0-98.0 [facility] Comment on above: Performed By: #### 5 0608 #### [facility] [address] Nucleated RBC/100 WBC (Bld) [Ratio] 0 % Normal 0-0 [facility] Comment on above: Performed By: #### 5 0608 #### [facility] [address] PLAT CNT 238 10*3/uL Normal 150-400 [facility] Comment on above: Performed By: #### 5 0608 #### [facility] [address] RBC (Bld) [#/Vol] 4.72 10*6/uL Normal 4.20-5.70 [facility] Comment on above: Performed By: #### 5 0608 #### [facility] [address] [place] [address], [facility] WBC (Bld) [#/Vol] 12.83 10*3/uL High 4.00-10.60 [facility] Comment on above: Performed By: #### 5 0608 #### [address] Cardiovascular Lab Reporton 08-30-2019 Cardiovascular Lab Report [facility] Patient Name: Jeremie Bennett [facility] MR #: [id number] Physician: Margaret Arellano, Department of M.D. Medicine Service Date: 08/30/2019 Division of Birthdate: 1940 Cardiology Room #: 3AB [id number] Adult Cardiovascular Services [place] [address] Cardiovascular Laboratory Report FINAL IMPRESSIONS: 1. 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 2. 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 3. 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 4. [id number] disease of the left anterior descending coronary [...] Follow up with Dr. Arellano in the [place] office in the next 2 to 4 [...] left common femoral artery was obtained. A 6-[place] 11 cm sheath was inserted without difficulty. Limited femoral angiography was performed. Bilateral selective coronary angiography was performed using JL4 and JR4 catheters. After reviewing the images, it was elected to proceed with an interventional procedure. A 6-[place] XB 3.5 guide catheter was advanced over [...] conclude the procedure. Attempts to deploy a 6-[place] Citizen MynxGrip closure device were unsuccessful. Therefore, manual [...] P/Margaret Arellano M.D. Date Trans: 08/30/2019 05:00 P/tristiano [id number] cc: Sabino Cooper MD [address] [place] [address] Normal [facility] POC GLUCOSE LABon 08-30-2019 Glucose [Mass/Vol] 172 mg/dL High 70-100 [facility] Comment on above: Performed By: #### [id number] #### [facility] [address] [facility] [place] [address], [facility] Glucose [Mass/Vol] 138 mg/dL High 70-100 [facility] Comment on above: Performed By: #### 8 [id number] #### [facility] [address] [facility] [place] [address], [facility] Vital Signs Date Time Vital Sign Value Performing Clinician Facility 04-07-2024 10:40-0500 Body height 162.6 cm Mary Schneider MD Work Phone: [facility] 04-07-2024 10:40-0500 Body mass index (BMI) [Ratio] 29.18 kg/m2 Mary Schneider MD Work Phone: [facility] 04-07-2024 10:40-0500 Body weight 77.11 kg Mary Schneider MD Work Phone: [facility] 03-29-2024 10:06-0500 Body height 162.6 cm Luc Ham MD Work Phone: [facility] 03-29-2024 10:06-0500 Body mass index (BMI) [Ratio] 29.7 kg/m2 Luc Ham MD Work Phone: [facility] 03-29-2024 10:06-0500 Body weight 78.47 kg Luc Ham MD Work Phone: [facility] 03-29-2024 10:06-0500 Diastolic blood pressure 70 mm[Hg] Luc Ham MD Work Phone: [facility] 03-29-2024 10:06-0500 Systolic blood pressure 138 mm[Hg] Luc Ham MD Work Phone: [facility] 03-23-2024 14:06-0500 Blood Pressure Location Wiley Sarmini [facility] 03-23-2024 14:06-0500 Diastolic blood pressure 74 mm[Hg] Wliey Sarmini [facility] 03-23-2024 14:06-0500 Heart rate 71 /min Wiley Sarmini [facility] 03-23-2024 14:06-0500 Respiratory rate 16 /min Wiley Sarmini [facility] 03-23-2024 14:06-0500 Systolic blood pressure 117 mm[Hg] Wiley Sarmini [facility] 03-08-2024 09:25-0400 Body height 162.6 cm Luc Ham MD Work Phone: [facility] 03-08-2024 09:25-0400 Body mass index (BMI) [Ratio] 29.87 kg/m2 Luc Ham MD Work Phone: [facility] 03-08-2024 09:25-0400 Body weight 78.93 kg Luc Ham MD Work Phone: [facility] 03-08-2024 09:25-0400 Diastolic blood pressure 66 mm[Hg] Luc Ham MD Work Phone: [facility] 03-08-2024 09:25-0400 Systolic blood pressure 124 mm[Hg] Luc Ham MD Work Phone: [facility] 02-16-2024 14:19-0400 Body height 162.6 cm Luc Ham MD Work Phone: [facility] 02-16-2024 14:19-0400 Body mass index (BMI) [Ratio] 29.87 kg/m2 Luc Ham MD Work Phone: [facility] 02-16-2024 14:19-0400 Body weight 78.93 kg Luc Ham MD Work Phone: [facility] 02-16-2024 14:19-0400 Diastolic blood pressure 74 mm[Hg] Luc Ham MD Work Phone: [facility] 02-16-2024 14:19-0400 Systolic blood pressure 129 mm[Hg] Luc Ham MD Work Phone: [facility] 02-16-2024 08:59-0400 Body height 162.6 cm Missy Lowe PA Work Phone: [facility] 02-16-2024 08:59-0400 Body mass index (BMI) [Ratio] 29.7 kg/m2 Missy Lowe PA Work Phone: [facility] 02-16-2024 08:59-0400 Body weight 78.47 kg Missy Lowe PA Work Phone: [facility] 02-16-2024 08:59-0400 Diastolic blood pressure 78 mm[Hg] Missy Lowe PA Work Phone: [facility] 02-16-2024 08:59-0400 Systolic blood pressure 118 mm[Hg] Missy Lowe PA Work Phone: [facility] 02-01-2024 13:07-0400 Body height 162.6 cm Luc Ham MD Work Phone: [facility] 02-01-2024 13:07-0400 Body mass index (BMI) [Ratio] 29.52 kg/m2 Luc Ham MD Work Phone: [facility] 02-01-2024 13:07-0400 Body weight 78.02 kg Luc Ham MD Work Phone: [facility] 02-01-2024 13:07-0400 Diastolic blood pressure 71 mm[Hg] Luc Ham MD Work Phone: [facility] 02-01-2024 13:07-0400 Systolic blood pressure 101 mm[Hg] Luc Ham MD Work Phone: [facility] 10-21-2023 14:32-0400 Blood Pressure Location Wiley Sarmini [facility] 10-21-2023 14:32-0400 Diastolic blood pressure 64 mm[Hg] Wiley Sarmini [facility] 10-21-2023 14:32-0400 Heart rate 73 /min Wiley Sarmini [facility] 10-21-2023 14:32-0400 Respiratory rate 18 /min Wiley Sarmini [facility] 10-21-2023 14:32-0400 Systolic blood pressure 130 mm[Hg] Wiley Sarmini [facility] 09-17-2023 08:58-0400 Blood Pressure Location Anjali Ruby [facility] 09-17-2023 08:58-0400 Body temperature 97.34 [degF] Anjali Ruby [facility] 09-17-2023 08:58-0400 Diastolic blood pressure 66 mm[Hg] Anjali Ruby [facility] 09-17-2023 08:58-0400 Heart rate 66 /min Anjali Ruby [facility] 09-17-2023 08:58-0400 Systolic blood pressure 123 mm[Hg] Anjali Ruby [facility] 09-02-2023 13:28-0400 Body height 167.64 cm [facility] 09-02-2023 13:28-0400 Body mass index (BMI) [Ratio] 28 kg/m2 [facility] 09-02-2023 13:28-0400 Body weight 78.69 kg [facility] 09-02-2023 13:28-0400 Diastolic blood pressure 61 mm[Hg] [facility] 09-02-2023 13:28-0400 Heart rate 67 /min [facility] 09-02-2023 13:28-0400 SaO2% (BldA) [Mass fraction] 95 % [facility] 09-02-2023 13:28-0400 Systolic blood pressure 113 mm[Hg] [facility] 07-27-2023 10:23-0400 Body height 167.64 cm [facility] 07-27-2023 10:23-0400 Body mass index (BMI) [Ratio] 27.5 kg/m2 [facility] 07-27-2023 10:23-0400 Body temperature 97.9 [degF] [facility] 07-27-2023 10:23-0400 Body weight 77.28 kg [facility] 07-27-2023 10:23-0400 Diastolic blood pressure 66 mm[Hg] [facility] 07-27-2023 10:23-0400 Heart rate 86 /min [facility] 07-27-2023 10:23-0400 Respiratory rate 18 /min [facility] 07-27-2023 10:23-0400 SaO2% (BldA) [Mass fraction] 97 % [facility] 07-27-2023 10:23-0400 Systolic blood pressure 121 mm[Hg] [facility] 05-31-2023 13:30-0500 Body height 167.64 cm Gisele Brunson Other [facility] Other 05-31-2023 13:30-0500 Body mass index (BMI) [Ratio] 27.6 kg/m2 Gisele Brunson Other [facility] Other 05-31-2023 13:30-0500 Body weight 77.57 kg Gisele Brunson Other [facility] Other 05-31-2023 13:30-0500 Diastolic blood pressure 55 mm[Hg] Gisele Brunson Other [facility] Other 05-31-2023 13:30-0500 SaO2% (BldA) [Mass fraction] 94 % Gisele Brunson Other [facility] Other 05-31-2023 13:30-0500 Systolic blood pressure 104 mm[Hg] Gisele Brunson Other [facility] Other 05-25-2023 12:21-0500 Blood Pressure Location Anjali Ruby [facility] 05-25-2023 12:21-0500 Diastolic blood pressure 65 mm[Hg] Anjali Ruby [facility] 05-25-2023 12:21-0500 Heart rate 88 /min Anjali Ruby [facility] 05-25-2023 12:21-0500 Respiratory rate 16 /min Anjali Ruby [facility] 05-25-2023 12:21-0500 Systolic blood pressure 113 mm[Hg] Anjali Ruby [facility] 04-01-2023 13:15-0500 Body temperature 97.11 [degF] Vaishali Pringle MD Work Phone: [facility] 04-01-2023 13:15-0500 Body weight 75.75 kg Vaishali Pringle MD Work Phone: [facility] 04-01-2023 13:15-0500 Diastolic blood pressure 66 mm[Hg] Vaishali Pringle MD Work Phone: [facility] 04-01-2023 13:15-0500 Heart rate 70 /min Vaishali Pringle MD Work Phone: [facility] 04-01-2023 13:15-0500 SaO2% (BldA) [Mass fraction] 97 % Vaishali Pringle MD Work Phone: [facility] 04-01-2023 13:15-0500 Systolic blood pressure 109 mm[Hg] Vaishlai Pringle MD Work Phone: [facility] 03-10-2023 08:53-0400 Blood Pressure Location Anjali Ruby [facility] 03-10-2023 08:53-0400 Body temperature 97.16 [degF] Anjali Ruby [facility] 03-10-2023 08:53-0400 Diastolic blood pressure 72 mm[Hg] Anjali Staffordmetz [facility] 03-10-2023 08:53-0400 Heart rate 63 /min Anjali Ruby [facility] 03-10-2023 08:53-0400 Systolic blood pressure 117 mm[Hg] Anjlai Staffordmetz [facility] 02-25-2023 13:27-0400 Blood Pressure Location Anjali Ruby [facility] 02-25-2023 13:27-0400 Body temperature 98.06 [degF] Anjali Ruby [facility] 02-25-2023 13:27-0400 Diastolic blood pressure 75 mm[Hg] Anjali Ruby [facility] 02-25-2023 13:27-0400 Heart rate 85 /min Anjali Ruby [facility] 02-25-2023 13:27-0400 Respiratory rate 16 /min Anjali Ruby [facility] 02-25-2023 13:27-0400 Systolic blood pressure 122 mm[Hg] Anjali Ruby [facility] 01-29-2023 10:15-0400 Body height 167.64 cm Gisele Brunson Other [facility] Other 01-29-2023 10:15-0400 Body mass index (BMI) [Ratio] 28.24 kg/m2 Gisele Brunson Other [facility] Other 01-29-2023 10:15-0400 Body weight 79.38 kg Gisele Brunson Other [facility] Other 01-29-2023 10:15-0400 Diastolic blood pressure 75 mm[Hg] Gisele Brunson Other [facility] Other 01-29-2023 10:15-0400 SaO2% (BldA) [Mass fraction] 95 % Gisele Brunson Other [facility] Other 01-29-2023 10:15-0400 Systolic blood pressure 118 mm[Hg] Gisele Brunson Other [facility] Other 01-12-2023 09:22-0400 Blood Pressure Location Anjali Ruby [facility] 01-12-2023 09:22-0400 Body temperature 96.98 [degF] Anjali Ruby [facility] 01-12-2023 09:22-0400 Diastolic blood pressure 68 mm[Hg] Anjali Ruby [facility] 01-12-2023 09:22-0400 Heart rate 69 /min Anjali Ruby [facility] 01-12-2023 09:22-0400 Systolic blood pressure 109 mm[Hg] Anjali Ruby [facility] 10-13-2022 09:45-0400 Body height 167.64 cm Gisele Brunson Other [facility] Other 10-13-2022 09:45-0400 Body mass index (BMI) [Ratio] 27.92 kg/m2 Gisele Brunson Other [facility] Other 10-13-2022 09:45-0400 Body weight 78.47 kg Gisele Brunson Other [facility] Other 10-13-2022 09:45-0400 Diastolic blood pressure 70 mm[Hg] Gisele Brunson Other [facility] Other 10-13-2022 09:45-0400 SaO2% (BldA) [Mass fraction] 95 % Gisele Brunson Other [facility] Other 10-13-2022 09:45-0400 Systolic blood pressure 116 mm[Hg] Gisele Brunson Other [facility] Other 09-22-2022 18:14-0400 Body temperature 99.86 [degF] Gordy Romane [facility] 09-22-2022 16:28-0400 Body temperature 101.3 [degF] Gordy Sánchez [facility] 09-22-2022 16:28-0400 Diastolic blood pressure 61 mm[Hg] Gordy Sánchez [facility] 09-22-2022 16:28-0400 Heart rate 79 /min Gordy Sánchez [facility] 09-22-2022 16:28-0400 Respiratory rate 17 /min Gordy Sánchez [facility] 09-22-2022 16:28-0400 SaO2% (BldA) [Mass fraction] 93 % Gordy Sánchez [facility] 09-22-2022 16:28-0400 Systolic blood pressure 111 mm[Hg] Gordy Sánchez [facility] 09-22-2022 14:10-0400 Body height 167.64 cm Griselda Pennington Other [facility] Other 09-22-2022 14:10-0400 Body mass index (BMI) [Ratio] 29.7 kg/m2 Griselda Pennington Other [facility] Other 09-22-2022 14:10-0400 Body temperature 100 [degF] Griselda Pennington Other [facility] Other 09-22-2022 14:10-0400 Body weight 83.46 kg Griselda Pennington Other [facility] Other 09-22-2022 14:10-0400 Respiratory rate 18 /min Griselda Pennington Other [facility] Other 09-22-2022 14:10-0400 SaO2% (BldA) [Mass fraction] 93 % Griselda Pennington Other [facility] Other 07-29-2022 10:15-0400 Body height 167.64 cm Erwin Salazar Other [facility] Other 07-29-2022 10:15-0400 Body mass index (BMI) [Ratio] 30.02 kg/m2 Erwin Salazar Other [facility] Other 07-29-2022 10:15-0400 Body weight 84.37 kg Erwin Salazar Other [facility] Other 07-29-2022 10:15-0400 Diastolic blood pressure 65 mm[Hg] Erwin Salazar Other [facility] Other 07-29-2022 10:15-0400 SaO2% (BldA) [Mass fraction] 94 % Erwin Salazar Other [facility] Other 07-29-2022 10:15-0400 Systolic blood pressure 102 mm[Hg] Erwin Salazar Other [facility] Other 11-29-2021 10:25-0400 Body height 167.64 cm Leti Garcia Other [facility] Other 11-29-2021 10:25-0400 Body temperature 96.9 [degF] Leti Garcia Other [facility] Other 11-29-2021 10:25-0400 Respiratory rate 18 /min Leti Garcia Other [facility] Other 11-29-2021 10:25-0400 SaO2% (BldA) [Mass fraction] 93 % Leti Garcia Other [facility] Other Encounters Encounter Date Encounter Type Care Provider Facility Start: 11-06-2024 ambulatory Sabino Cooper Facility :[facility] Start: 04-26-2024 Evaluation and management of inpatient MARY Tripp [facility] Start: 04-25-2024 End: 04-25-2024 ambulatory [facility] Start: 04-18-2024 ambulatory MARY SCHNEIDER [facility] Start: 04-17-2024 End: 04-17-2024 Lab Drop off Sabino Cooper [facility] Start: 04-17-2024 End: 04-17-2024 ambulatory Sabino Cooper Facility:[facility] Start: 04-11-2024 End: 04-11-2024 ambulatory MARY Tripp [facility] Start: 04-11-2024 End: 04-11-2024 Encounter for other preprocedural examination MARY Tripp [facility] Start: 04-11-2024 End: 04-11-2024 Encounter for preprocedural cardiovascular examination MARY Tripp [facility] Start: 04-11-2024 End: 04-11-2024 Encounter for preprocedural respiratory examination MARY Tripp [facility] Start: 04-07-2024 End: 04-07-2024 Office outpatient new 45 minutes Mary Schneider MD Work Phone: [facility] Comment on above: 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); Oral lesion; Malignant neoplasm of floor of mouth Start: 04-07-2024 End: 04-07-2024 ambulatory MARY Tripp [facility] Start: 03-29-2024 End: 03-29-2024 Bamboo trever Ham MD Work Phone: [facility] Start: 03-29-2024 End: 03-29-2024 Bamsushmao trever Ham MD Work Phone: [facility] Start: 03-29-2024 End: 03-29-2024 Office outpatient visit 15 minutes Luc Ham MD Work Phone: [facility] Comment on above: 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); Ulcer of gingiva Start: 03-29-2024 End: 03-29-2024 ambulatory LUC HAM Not Available Start: 03-27-2024 End: 03-27-2024 ambulatory LUC HAM Facility:[facility] Start: 03-27-2024 End: 03-27-2024 Subsequent hospital visit by physician Arrival Time Radiology Work Phone: Radiology [facility] Start: 03-23-2024 End: 03-23-2024 ambulatory Wileyrick Henderson Facility:[facility] Start: 03-23-2024 End: 03-23-2024 Patient encounter procedure Inez Henderson [facility] Start: 03-08-2024 End: 03-08-2024 Joie Ham MD Work Phone: [facility] Start: 03-08-2024 End: 03-08-2024 Joie Ham MD Work Phone: [facility] Start: 03-08-2024 End: 03-08-2024 Office outpatient visit 40 minutes Luc Ham MD Work Phone: [facility] Comment on above: Oral ulcer (Primary Dx); 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) Start: 03-08-2024 End: 03-08-2024 ambulatory LUC HAM Not Available Start: 03-06-2024 End: 03-06-2024 Telephone encounter Luc Ham MD Work Phone: [facility] Start: 02-29-2024 End: 02-29-2024 ambulatory MD Sabino Cooper Work Phone: [facility] Work Phone: Start: 02-29-2024 End: 02-29-2024 Departed Referred MD Sabino Cooper Work Phone: [facility] Start: 02-16-2024 End: 02-16-2024 Office outpatient visit 25 minutes Luc Ham MD Work Phone: [facility] Comment on above: LAD (lymphadenopathy ) of right cervical region (Primary Dx) Start: 02-16-2024 End: 02-16-2024 ambulatory LUC HAM Not Available Start: 02-16-2024 End: 02-16-2024 Bamboo flowsheet Missy Lowe PA Work Phone: [facility] Start: 02-16-2024 End: 02-16-2024 Bamboo flowsheet Missy Lowe PA Work Phone: [facility] Start: 02-16-2024 End: 02-16-2024 Office outpatient visit 15 minutes Missy Lowe PA Work Phone: [facility] Comment on above: Migraine without aur a and without status migrainosus, not intractable (CMS/HCC) (Primary Dx); Vertigo; Lumbar radiculopathy; Neck pain; Degenerative disc disease, cervical; Polyneuropathy Start: 02-16-2024 End: 02-16-2024 ambulatory MISSY WESTFALL Not Available Start: 02-14-2024 End: 02-14-2024 ambulatory LUC HAM Not Available Start: 02-02-2024 End: 02-18-2024 Telephone encounter Vaishali Pringle MD Work Phone: General Surgery Comment on above: MRI Appointment; Car e Coordinator - Other Start: 02-01-2024 End: 02-01-2024 Joie Ham MD Work Phone: [facility] Start: 02-01-2024 End: 02-01-2024 Joie Ham MD Work Phone: [facility] Start: 02-01-2024 End: 02-01-2024 Office outpatient new 30 minutes Luc Ham MD Work Phone: [facility] Comment on above: Parotid mass (Primar y Dx) Start: 02-01-2024 End: 02-01-2024 Refill Vaishali Pringle MD Work Phone: General Surgery Start: 01-25-2024 End: 01-25-2024 ambulatory [facility] Start: 01-10-2024 End: 01-10-2024 ambulatory Sabino Cooper Facility:[facility] Start: 11-30-2023 End: 11-30-2023 ambulatory [facility] Start: 11-29-2023 End: 11-29-2023 ambulatory Sabino Cooper Facility:[facility] Start: 11-09-2023 End: 11-09-2023 ambulatory Inez Henderson Facility:[facility] Start: 11-09-2023 End: 11-09-2023 Patient encounter procedure Inez Henderson [facility] Start: 11-08-2023 End: 11-08-2023 ambulatory Sabino Cooper Facility:[facility] Start: 10-21-2023 End: 10-21-2023 ambulatory Inez Bautistamini Facility:[facility] Start: 10-21-2023 End: 10-21-2023 Patient encounter procedure Inez Bautistamini [facility] Start: 09-17-2023 End: 09-17-2023 ambulatory Anjali Ruby Facility:[facility] Start: 09-17-2023 End: 09-17-2023 Patient encounter procedure Anjali Ruby [facility] Start: 09-02-2023 End: 09-02-[address] [facility] Work Phone: Start: 09-02-2023 End: 09-02-2023 Patient encounter procedure [facility] Work Phone: Start: 09-01-2023 End: 09-01-2023 ambulatory MISSY WESTFALL Not Available Start: 08-30-2023 End: 08-30-2023 ambulatory Sabino Cooper Facility:[facility] Start: 07-27-2023 End: 07-27-2023 Patient encounter procedure [facility] Work Phone: Start: 06-25-2023 End: 06-25-2023 ambulatory Anjali Ruby [facility] Start: 06-14-2023 End: 06-14-2023 ambulatory Inez Josephi Facility:[facility] Start: 05-31-2023 Office outpatient vi sit 25 minutes Gisele [facility] Start: 05-31-2023 End: 05-31-2023 Patient encounter procedure MD Sabino Cooper Work Phone: [facility] Work Phone: Start: 05-31-2023 End: 05-31-2023 ambulatory MD Sabino Cooper Work Phone: [facility] Work Phone: Start: 05-31-2023 End: 05-31-2023 ambulatory Sabino Cooper Facility:[facility] Start: 05-25-2023 End: 05-25-2023 ambulatory Anjali Lyssa Flori Facility:[facility] Start: 05-25-2023 End: 05-25-2023 Patient encounter procedure Anjali Ruby [facility] Start: 05-25-2023 End: 05-25-2023 ambulatory [facility] Start: 04-05-2023 Telephone encounter Vaishali orr MD Work Phone: General Surgery Comment on above: Received Outside Med [facility] Start: 04-01-2023 End: 04-01-2023 ambulatory VAISHALI PRINGLE Facility:[facility] Start: 04-01-2023 End: 04-01-2023 Patient encounter procedure Vaishali Pringle MD Work Phone: General Surgery Comment on above: IPMN (intraductal pa pillary mucinous neoplasm) (Primary Dx) Start: 03-10-2023 End: 03-10-2023 Patient encounter procedure Anjalijane Ruby [facility] Start: 03-10-2023 End: 03-10-2023 Patient encounter procedure Anjali Ruby [facility] Start: 02-25-2023 End: 02-25-2023 Patient encounter procedure Anjalijane Ruby [facility] Start: 02-16-2023 End: 02-16-2023 ambulatory MD Sabino Cooper Work Phone: [facility] Work Phone: Start: 02-16-2023 End: 02-16-2023 Patient encounter procedure MD Sabino Cooper Work Phone: [facility] [place] Work Phone: Start: 01-29-2023 Office outpatient vi sit 25 minutes Gisele [facility] Start: 01-29-2023 End: 01-29-2023 ambulatory MD Sabino Cooper Work Phone: [facility] Work Phone: Start: 01-29-2023 End: 01-29-2023 Patient encounter procedure MD Sabino Cooper Work Phone: [facility]Sleep [facility] Work Phone: Start: 01-27-2023 ambulatory Facility:[id number] Start: 01-27-2023 End: 01-27-2023 ambulatory MD Sabino Cooper Work Phone: [facility] Work Phone: Start: 01-27-2023 End: 01-27-2023 Patient encounter procedure MD Sabino Cooper Work Phone: [facility]-Pacemaker Check Start: 01-12-2023 End: 01-12-2023 Patient encounter procedure Anjali Ruby [facility] Start: 12-17-2022 End: 12-17-2022 Patient encounter procedure Anjali Ruby [facility] Start: 12-09-2022 End: 12-09-2022 ambulatory MD Sabino Cooper Work Phone: [facility] Work Phone: Start: 12-09-2022 End: 12-09-2022 Patient encounter procedure MD Sabino Cooper Work Phone: [facility] Work Phone: Start: 11-23-2022 End: 11-23-2022 Lab Drop off Sabino Cooper [facility] Start: 10-13-2022 Office outpatient vi sit 15 minutes Gisele Brunson [facility] Start: 10-13-2022 End: 10-13-2022 ambulatory MD Mg London Work Phone: [facility] Work Phone: Start: 10-13-2022 End: 10-13-2022 Patient encounter procedure MD Mg London Work Phone: [facility] Work Phone: Start: 09-29-2022 End: 09-29-[address] EDY CARNEY Facility:[facility] Start: 09-24-2022 End: 09-25-[address] MG LONDON Facility:[facility] Start: 09-22-2022 End: 09-22-2022 Emergency department patient visit Gordy Sánchez [facility] Start: 09-22-2022 Office outpatient vi sit 15 minutes Griselda Pennington [facility] Start: 09-22-2022 End: 09-22-2022 ambulatory NARENDRANATH LAKSHMIPATHY . [facility] Other Start: 08-25-2022 End: 08-26-2022 ambulatory NARENDRANATH LAKSHMIPATHY . Facility:[facility] Start: 08-12-2022 ambulatory Facility:[id number] Start: 08-12-2022 End: 08-12-2022 ambulatory MD Mg London Work Phone: [facility] Work Phone: Start: 08-12-2022 End: 08-12-2022 Patient encounter procedure MD Mg London Work Phone: [facility] [place] Work Phone: Start: 08-11-2022 End: 08-11-2022 ambulatory BETTY BUTTS . Facility:[facility] Start: 07-29-2022 Office outpatient ne w 60 minutes Erwin Salazar [facility] Start: 07-29-2022 End: 07-29-2022 ambulatory MD Mg London Work Phone: [facility] Work Phone: Start: 07-29-2022 End: 07-29-2022 Patient encounter procedure MD Mg London Work Phone: [facility]-Sleep [facility] Work Phone: Start: 07-23-2022 End: 07-24-2022 ambulatory SONNY LAZO . Facility:[facility] Start: 07-22-2022 End: 07-23-2022 ambulatory ALANNA HARDY Facility:[facility] Start: 07-21-2022 ambulatory Facility:[id number] Start: 07-21-2022 End: 07-21-2022 ambulatory MD Mg London Work Phone: [facility] Work Phone: Start: 07-21-2022 End: 07-21-2022 Patient encounter procedure MD Mg London Work Phone: [facility]-Pacemaker Check Start: 06-18-2022 End: 07-10-2022 ambulatory SONA COPPOLA Facility:[facility] Start: 06-16-2022 End: 06-17-2022 ambulatory SONA COPPOLA Facility:[facility] Start: 06-11-2022 End: 06-12-2022 ambulatory ALANNA Araiza [facility] Facility:[facility] Start: 05-26-2022 End: 05-26-2022 Patient encounter procedure Dequan GALICIA [facility] Start: 04-16-2022 End: 04-17-[address] ERWIN FALCON Facility:[facility] Start: 03-19-[address] AMANDA CLANCY . Faci lity:[facility]1 Start: 03-12-2022 End: 03-13-2022 ambulatory ALANNA Araiza [facility] Facility:[facility] Start: 03-10-2022 End: 03-11-2022 ambulatory DIEGO COYNE Facility:[facility] Start: 03-06-2022 End: 03-07-[address] DOCTOR GOFF Facility:[facility] Start: 12-25-2021 End: 12-26-2021 ambulatory SONNY LAZO . Facility:[facility] Start: 12-01-2021 End: 12-02-2021 ambulatory ALANNA Araiza [facility] Facility:[facility] Start: 11-29-2021 End: 11-29-2021 ambulatory Ltei Garcia Other [facility] Other Start: 11-29-2021 Office outpatient vi sit 15 minutes Leti Garcia [facility] Start: 11-13-2021 End: 12-19-2021 ambulatory OSMAR JARQUIN Facility:[facility] Start: 09-04-2020 End: 09-04-2020 Patient encounter procedure Param Cosme Work Phone: -MRI [facility] [place] Start: 08-15-2020 End: 08-15-2020 Patient encounter procedure Param Cosme -Pacemaker Check Start: 08-30-2019 End: 08-31-2019 Patient encounter procedure EHAB A NUNOTAFABRICIO Facility:[facility] Procedures Date Procedure Procedure Detail Performing Clinician Start: 03-27-2024 Gluc bld gluc mntr dev cleared fda spec home use [facility] Provider Start: 08-17-2023 Destructive procedure Anjali Ruby Comment [...] on above: Performed By: #### CBC #### [facility] [address] [place], [place] [address] Dr. Ramsey Sanchez Start: 05-20-2020 Esophagogastroduodenoscopy Dequan CABAN S Comment on above: 2 diminunative ulcers, gastritis, gastri c polyp, biopsy Angioplasty of blood vessel Dequan GALICIA Cardiac pacemaker procedure Dequan GALICIA Cataract (disorder) Gordy Jaziel arteagaelizabeth Comment on above: bilateral Cholecystectomy Dequan MALDONADO Colonoscopy Dequan GALICIA Hernia repair Dequan GALICIA Prostatectomy Dequan GALICIA Tonsillectomy Dequan GALICIA Vasectomy Dequan GALICIA Plan of Treatment Date Care Activity Detail Author Start: 08-29-2024 End: 08-29-2024 Patient encounter procedure 08/29/2024 10:40 AM EDT Office Visit [facility] [address] [place] [address] Missy Westfall PA [address] [place] [address] [facility] Start: 04-19-2024 Subsequent hospital visit by physician 04/19/2024 Hospital Encounter [facility] [address] [place] [address] [place] [address] [place] [address] [facility] [place] Start: 04-07-2024 End: 04-07-2025 Request for Pre-Admission Testing Visit Request for Pre-Admission Testing Visit Procedures Routine Oral lesion Malignant neoplasm of floor of mouth Expected: 04/07/2024 (Approximate), Expires: 04/07/2025 [facility] Service Area Work Phone: Comment on above: Expected: 04/07/2024 (Approximate), Expires: 04/07/2025 Start: 03-08-2024 End: 03-08-2024 Patient encounter procedure [facility] Comment on above: Arrived Start: 02-16-2024 End: 02-16-2024 Patient encounter procedure 02/16/2024 2:30 PM EDT Office Visit [facility] [address] [place] [address] Luc Ham MD [address] [place] [address] [facility] Start: 02-16-2024 End: 02-16-2024 Patient encounter procedure [facility] Comment on above: Arrived Start: 02-01-2024 End: 02-01-2024 Patient encounter procedure 02/01/2024 1:10 PM EDT Office Visit [facility] [address] [place] [address] Luc Ham MD [address] [place] [address] Arrived [facility] Comment on above: Arrived Start: 01-16-2024 Covid-19 Vaccine () Covid-19 Vaccine () [facility] Start: 01-16-2024 Covid-19 Vaccine () Covid-19 Vaccine () [facility] Start: 01-16-2024 Covid-19 Vaccine () Covid-19 Vaccine () [facility] Start: 01-16-2024 Influenza vaccination Influenza Vacc ine (#1) [facility] Start: 05-17-2023 Advance Directive Discussion Advance Directive Discussion [facility] Start: 01-15-2023 Covid-19 Vaccine ( season) Covid-19 Vaccine ( season) [facility] Start: 01-15-2023 Influenza vaccination Influenza Vacc ine (#1) [facility] Start: 11-12-2022 ambulatory Ambulatory Facility:H 1 Start: 05-17-2022 Advance Directive Discussion Advance Directive Discussion [facility] Start: 05-17-2022 Depression Assessment Depression Ass essment [facility] Start: 09-04-2020 MRI of right ankle MR ankle RT wo co n [facility] Start: 09-04-2020 XR pre/post mri xray XR pre/post mri xray [facility] Start: 01-30-2015 Pneumococcal Vaccine : 65+ (2 - PPSV23 or PCV20) Pneumococcal Vaccine: 65+ (2 - PPSV23 or PCV20) [facility] Start: 01-30-2015 Pneumococcal Vaccine : 65+ (2 of 2 - PPSV23 or PCV20) Pneumococcal Vaccine: 65+ (2 of 2 - PPSV23 or PCV20) [facility] Start: 10-29-2014 RSV High Risk: (Elde rly (60+) or Population) (1 - 1-dose 75+ series) RSV High Risk: (Elderly (60+) or Population) (1 - 1-dose 75+ series) [facility] Start: 10-29-2014 RSV Vaccine (1 - 1-d ose 75+ series) RSV Vaccine (1 - 1-dose 75+ series) [facility] Start: 1999 RSV Vaccine (1 - 1-d ose 60+ series) RSV Vaccine (1 - 1-dose 60+ series) [facility] Start: 10-29-1989 Shingrix Vaccine (1 of 2) Shingrix Vaccine (1 of 2) [facility] Start: 10-29-1984 Diabetes Screening Diabetes Screenin g [facility] Start: 10-29-1961 DTaP/Tdap/Td Vaccine s (1 - Tdap) DTaP/Tdap/Td Vaccines (1 - Tdap) [facility] Start: 10-29-1958 Urine microalbumin profile DTaP,Tdap,Td Vaccine (1 - Tdap) [facility] Start: 10-29-1957 Anxiety Screening Anxiety Screening [facility] Start: 10-29-1957 Depression Screening Depression Scre ening [facility] Start: 1940 Annual wellness visit Welcome to Medicare Visit [facility] Start: 1940 Lipid panel Lipid Panel [facility] Laryngoscopy w/wo tracheoscopy dx except Direct Laryngoscopy Oral lesion Malignant neoplasm of floor of mouth [facility] [place] End: 03-02-2025 MR Biliary ducts and Pancreatic duct WO and W contrast IV MRI PANC/VARGAS WO/W IVCON Radiology Routine IPMN (intraductal papillary mucinous neoplasm) 1 Occurrences starting 02/01/2024 until 03/02/2025 [facility] Work Phone: Comment on above: 1 Occurrences starti ng 02/01/2024 until 03/02/2025 End: 03-02-2025 MR Unspecified body region 3D post processing MRI 3D POST PROCESSING Radiology Routine IPMN (intraductal papillary mucinous neoplasm) 1 Occurrences starting 02/01/2024 until 03/02/2025 [facility] Comment on above: 1 Occurrences starti ng 02/01/2024 until 03/02/2025 Surgical pathology study Surgical Pathology Exam Pathology and Cytology Routine Oral lesion 04/07/2024 11:37 AM EST [facility] Work Phone: [facility] Immunizations Immunization Date Immunization Notes Care Provider Magy brantley 04-17-2024 influenza, high dose seasonal, preservative-free; Translations: [Fluzone High Dose Vaccine] Sabino Cooper [facility] [place] 02-09-2024 zoster vaccine recombinant Wiley Sarmini [facility] 11-22-2023 pneumococcal 20-reta nt conjugate vaccine Wiley Sarmini [facility] 11-22-2023 zoster vaccine recombinant Wiley Sarmini [facility] 04-12-2023 influenza virus vaccine, unspecified formulation Anjali Ruby [facility] 11-25-2021 Pfizer Haque Cap SARS-CoV-2 Vaccination Luc Ham MD Work Phone: [facility] 11-25-2021 SARS-CoV-2 mRNA (apeqxprzflq-yyzh-bzgs ose) vaccine Sabino Cooper [facility] [place] 11-25-2021 SARS-CoV-2, Unspecified Missy PEMBERTON Work Phone: [facility] 03-06-2021 SARS-CoV-2 (COVID-19 ) mRNA BNT-162b2 vax Sabino Cooper [facility] [place] Comment on above: Result Comment: 2022: [id number] 03-06-2021 SARS-CoV-2, Unspecified Luc Ham MD Work Phone: [facility] 02-18-2021 influenza virus vaccine, unspecified formulation Sabino Cooper [facility] [place] 02-18-2021 Influenza, injectabl e, Madin Mireya Canine Kidney, preservative free, quadrivalent Luc Hma MD Work Phone: [facility] 06-27-2020 SARS-CoV-2 (COVID-19 ) Ad26 vaccine, recombinant Dequan GALICIA [facility] [place] 06-27-2020 SARS-CoV-2 (COVID-19 ) mRNA BNT-162b2 vax Dequan GALICIA [facility] 06-27-2020 SARS-CoV-2, Unspecified Luc Ham MD Work Phone: [facility] 06-06-2020 SARS-CoV-2 (COVID-19 ) Ad26 vaccine, recombinant Dequan GALICIA [facility] [place] 06-06-2020 SARS-CoV-2 (COVID-19 ) mRNA BNT-162b2 vax Dequan GALICIA [facility] 06-06-2020 SARS-CoV-2, Unspecified Luc Ham MD Work Phone: [facility] 02-14-2020 influenza virus vaccine, unspecified formulation Sabino Cooper [facility] [place] 02-14-2020 Influenza, injectabl e, Madin Mireya Canine Kidney, preservative free, quadrivalent Luc Ham MD Work Phone: [facility] 01-31-2019 influenza, high dose seasonal, preservative-free Luc Ham MD Work Phone: [facility] 01-22-2018 influenza virus vaccine, unspecified formulation Luc Ham MD Work Phone: [facility] 01-22-2018 influenza, injectabl e, quadrivalent, contains preservative Luc Ham MD Work Phone: [facility] 01-22-2018 influenza, unspecifi ed formulation Sabino Cooper [facility] [place] 01-30-2014 pneumococcal conjuga te vaccine, 13 valent Sabino Cooper [facility] [place] 01-30-2014 pneumococcal conjuga te vaccine, 7 valent Luc Ham MD Work Phone: [facility] Payers Date Payer Category Payer Medicare (Managed Care) 1.2. [id number] 2023 Self-pay [id number] 2022 Medicare [id number] 2022 Medicare [id number] 2.16.840.1.844752.19 1959 Medicare [id number] 1959 Medicare [id number] 1959 Medicare [id number] 1959 Unknown [id number] 1939 Unknown [id number] 2.16.840.1.766458.3.579.2. 647 1939 Unknown [id number] 2.16.840.1.796368.3.579.2. 593 1939 Unknown [id number] 2.16.840.1.605475.3.579.2. 593 1939 Unknown [id number] 2.16.840.1.127864.3.579.2. 593 1939 Unknown [id number] 2.16.840.1.645608.3.579.2. 593 1939 Unknown [id number] 2.16.840.1.325891.3.579.2. 593 1939 Unknown [id number] 2.16.840.1.313141.3.579.2. 593 1939 Unknown [id number] 2.16.840.1.880054.3.579.2. 593 1939 Unknown [id number] 2.16.840.1.020093.3.579.2. 593 1939 Unknown [id number] 2.16.840.1.607241.3.579.2. 593 1939 Unknown [id number] 2.16.840.1.055225.3.579.2. 593 1939 Unknown [id number] 2.16.840.1.335726.3.579.2. 593 1939 Unknown [id number] 2.16.840.1.764602.3.579.2. 593 1939 Unknown [id number] 2.16.840.1.617418.3.579.2. 593 1939 Unknown [id number] 2.16.840.1.180172.3.579.2. 593 1939 Unknown [id number] 2.16.840.1.574430.3.579.2. 593 1939 Unknown [id number] 2.16.840.1.852932.3.579.2. 593 1939 Unknown [id number] 2.16.840.1.460409.3.579.2. 593 1939 Unknown [id number] 2.16.840.1.436345.3.579.2. 593 1939 Unknown [id number] 2.16.840.1.306012.3.579.2. 593 1939 Unknown [id number] 2.16.840.1.377325.3.579.2. 593 1939 Unknown [id number] 2.16.840.1.673700.3.579.2. 356 1939 Unknown [id number] 2.16.840.1.619653.3.579.2. 356 1939 Unknown [id number] 2.16.840.1.826136.3.579.2. 356 1939 Unknown [id number] 2.16.840.1.598576.3.579.2. 1259 1939 Unknown [id number] 2.16.840.1.622952.3.579.2. 1259 1939 Unknown [id number] 2.16.840.1.615075.3.579.2. 1259 1939 Unknown [id number] 2.16.840.1.086730.3.579.2. 1259 1939 Unknown [id number] 2.16.840.1.235080.3.579.2. 1259 1939 Unknown [id number] 2.16.840.1.070210.3.579.2. 1259 1939 Unknown [id number] 2.16.840.1.131293.3.579.2. 125 1939 Unknown [id number] 2.16.840.1.484486.3.579.2. 72 1939 Unknown [id number] 2.16.840.1.248710.3.579.2. 1939 Unknown [id number] 2.16.840.1.862113.3.579.2. 1939 Unknown [id number] 2.16.840.1.016741.3.579.2. 1939 Unknown [id number] 2.16.840.1.051973.3.579.2. 72 1939 Unknown [id number] 2.16.840.1.867544.3.579.2. 1939 Unknown [id number] 2.16.840.1.206635.3.579.2. 72 1939 Unknown [id number] 2.16.840.1.987857.3.579.2. 72 1939 Unknown [id number] 2.16.840.1.558702.3.579.2. 72 1939 Unknown [id number] 2.16.840.1.849317.3.579.2. 72 1939 Unknown [id number] 2.16.840.1.119884.3.579.2. 72 1939 Unknown [id number] 2.16.840.1.968000.3.579.2. 727 1939 Unknown [id number] 2.16.840.1.483827.3.579.2. 727 1939 Unknown [id number] 2.16.840.1.830151.3.579.2. 727 1939 Unknown [id number] 2.16.840.1.612839.3.579.2. 727 1939 Unknown [id number] 2.16.840.1.677896.3.579.2. 727 1939 Unknown [id number] 2.16.840.1.514141.3.579.2. 727 1939 Unknown [id number] 2.16.840.1.512587.3.579.2. 727 1939 Unknown [id number] 2.16.840.1.553190.3.579.2. 1245 1939 Unknown [id number] 2.16.840.1.854600.3.579.2. 1245 1939 Unknown [id number] 2.16.840.1.064645.3.579.2. 1245 1939 Unknown [id number] 2.16.840.1.180216.3.579.2. 1245 Medicare AARP Medicare Ad vantage PFFS [id number] Unknown [id number] 2.16.840.1.296133.3.579.2. 531 Unknown [id number] 2.16.840.1.712333.3.579.2. 531 Social History Date Type Detail Facility Tobacco smoking stat [facility] Unknown if ever smoked [facility] Start: 1940 Sex Assigned At Male [facility] Start: 04-01-2023 End: 02-01-2024 Sex Assigned At [facility] Start: 04-27-2022 End: 12-22-2022 Tobacco smoking status Ex-smoker (finding) [facility] Comment on above: former smoker quit a t age 41, 1 PPD Patient states he sm oked about 1.5 PPD, cigarettes, from about 17 y.o. to about 41 y.o. Tobacco smoking status Never [facility] Comment on above: former smoker quit a t age 41, 1 PPD Patient states he sm oked about 1.5 PPD, cigarettes, from about 17 y.o. to about 41 y.o. History of tobacco use Current smoker [facility] History of tobacco use Cigarette Smoker C [facility] Start: 04-01-2023 Tobacco use and exposure Smokeless tobacco non-user [facility] Start: 04-01-2023 End: 02-01-2024 History of Social function [facility] Start: 1940 Sex Assigned At Not on file C [facility] History of tobacco use Passive smoker [facility] Start: 02-01-2024 End: 02-12-2024 Alcoholic beverage intake Current drinker of alcohol (finding) [facility] Start: 12-22-2022 Tobacco Comment Years smoked: 25 [facility] Start: 12-22-2022 Alcohol Comment 1 or 2 drinks/ day, monthly or less; Caffeine: 1 drink/day [facility] Start: 04-07-2024 Tobacco use and exposure Former smokeless tobacco user [facility] Work Phone: Start: 04-01-2024 End: 04-11-2024 Exposure to SARS-CoV-2 (event) Not sure [facility] Medical Equipment Procedure Code Equipment Code [...] /State Functional Status Date Assessment Result Facility 03-23-2024 Functional Status N/A [facility] 10-21-2023 Functional Status N/A [facility] 09-17-2023 Functional Status N/A [facility] 05-25-2023 Functional Status N/A [facility] 03-10-2023 Functional Status N/A [facility] 02-25-2023 Functional Status N/A [facility] 01-12-2023 Functional Status N/A [facility] 09-22-2022 Functional Status N/A [facility] 05-19-2022 Functional Status N/A [facility] Clinical Notes 11-29-2021 to 04-25-2024 Mary Schneider MD - 04/07/2024 10:45 AM Lukasz Ham MD - 03/29/2024 10:20 AM Kandi Mendez, RT(R) - 03/27/2024 10:00 AM Lukasz Ham MD - 03/08/2024 9:40 AM EDT Note Date & Type Note Facility 04-25-2024 Note Patient here for 1 y ear follow up and device check. Also needs cleared for procedure on his throat, tentatively scheduled for 05/11/2024. Denies chest pain, SOB, palpitations, and syncope. Review of Systems Constitutional: Positive for malaise/fatigue. Cardiovascular: Positive for leg swelling (minimal). Musculoskeletal: Positive for arthritis and back pain. Gastrointestinal: Positive for nausea. Neurological: Positive for light-headedness and loss of balance. All other systems reviewed and are negative. [facility] 04-17-2024 Note Patient Education Nutrition BMI for Adults Body mass index (BMI) is a number found using a person's weight and height. BMI can help tell how much of a person's weight is made up of fat. BMI does not measure body fat directly. It is used instead of tests that directly measure body fat, which can be difficult and expensive. What are BMI measurements used for? BMI is useful to: ??? Find out if your weight puts you at higher risk for medical problems. ??? Help recommend changes, such as in diet and exercise. This can help you reach a healthy weight. BMI screening can be done again to see if these changes are working. How is BMI calculated? Your height and weight are measured. The BMI is found from those numbers. This can be done with U.S. or metric measurements. Note that charts and online BMI calculators are available to help you find your BMI quickly and easily without doing these calculations. To calculate your BMI in U.S. measurements: 1. Measure your weight in pounds (lb). 2. Multiply the number of pounds by 703. ??? So, for an adult who weighs 150 lb, multiply that number by 703: 150 x 703, which equals 105,450. 3. Measure your height in inches. Then multiply that number by itself to get a measurement called inches squared. ??? So, for an adult who is 70 inches tall, the inches squared measurement is 70 inches x 70 inches, which equals 4,900 inches squared. 4. Divide the total from step 2 (number of lb x 703) by the total from step 3 (inches squared): 105,450 ? 4,900 = 21.5. This is your BMI. To calculate your BMI in metric measurements: 1. Measure your weight in kilograms (kg). ??? For this example, the weight is 70 kg. 2. Measure your height in meters (m). Then multiply that number by itself to get a measurement called meters squared. ??? So, for an adult who is 1.75 m tall, the meters squared measurement is 1.75 m x 1.75 m, which equals 3.1 meters squared. 3. Divide the number of kilograms (your weight) by the meters squared number. In this example: 70 ? 3.1 = 22.6. This is your BMI. What do the results mean? BMI charts are used to see if you are underweight, normal weight, overweight, or obese. The following guidelines will be used: ??? Underweight: BMI less than 18.5. ??? Normal weight: BMI between 18.5 and 24.9. ??? Overweight: BMI between 25 and 29.9. ??? Obese: BMI of 30 or above. BMI is a tool and cannot diagnose a condition. Talk with your health care provider about what your BMI means for you. Keep these notes in mind: ??? Weight includes fat and muscle. Someone with a muscular build, such as an athlete, may have a BMI that is higher than 24.9. In cases like these, BMI is not a correct measure of body fat. ??? If you have a BMI of 25 or higher, your provider may need to do more testing to find out if excess body fat is the cause. ??? BMI is measured the same way for males and females. Females usually have more body fat than males of the same height and weight. Where to find more information For more information about BMI, including tools to quickly find your BMI, go to: ??? Centers for Disease Control and Prevention: cdc.gov ??? [place] Heart Association: heart.org ??? National Heart, Lung, and Blood Royal: nhlbi.nih.gov This information is not intended to replace advice given to you by your health care provider. Make sure you discuss any questions you have with your health care provider. Document Revised: 01/21/2023 Document Reviewed: 01/14/2023 [employer] Patient Education ? 2023 readfy. [facility] 04-07-2024 History of Presen t illness Narrative HEAD AND NECK SURGERY CONSULT [facility] Referring Provider: Dr. Ham HPI I had the pleasure of seeing Jeremie Bennett as a consultation today for evaluation of SCC of the lymph node. Spouse accompanies him and assists with history and treatment planning. The patient reports a history of right neck swelling a few months ago, he was given antibiotics that improved the swelling. It didn't go away completely. An US was obtained by his primary care doctor, he was evaluated by local ENT Dr Ham who recommend a biopsy. 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 He had also seen a lesion on the left side of his mouth. This was noticed by Dr Ham 3-4 weeks ago. PET scan was ordered and showed FDG avidity along left mandible alveolar ridge. No trouble dysphagia, dysphonia, dyspnea, odynophagia, throat pain, or weight loss (weight is 170 lb today). Right ear pain, reports history of ear infections. 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 The patient denies having prior trauma or surgery to their head and neck. There is not a personal or family history of blood clots, easy bleeding or bruising, or anesthesia concerns. They live at home with who assists with surgery. Tobacco use: The patient reports that he has quit smoking. His smoking use included cigarettes. He has quit using smokeless tobacco. Alcohol Use: The patient has no history on file for alcohol use. Physical Examination Vitals: Ht 1.626 m (5' 4 ) Wt 77.1 kg (170 lb) BMI 29.18 kg/m General: Examination reveals a well-developed, well-nourished patient in no apparent distress. The patient has no audible dysphonia, stridor or airway distress. The patient is oriented, alert and responsive. Oral Cavity: The patient is able to open the mouth widely without trismus. The floor of mouth and oral tongue are soft, and no mucosal abnormalities are noted on the lips or within the oral cavity. The oral tongue is fully mobile and midline on protrusion. The patient's teeth are edentulous, area of necrotic mucosa at tooth root left lower mandible Oropharynx: There are no mucosal abnormalities noted within the oropharynx. The soft palate elevates symmetrically, the tonsils and base of tongue are normal to inspection and palpation. Salivary glands: There are no palpable masses of the parotid or submandibular glands. Neuro: Cranial nerves 2-12 are without obvious abnormality. Neck: The neck is soft and symmetric. Subtle right neck lymph node Procedure Note: Diagnostic Flexible Laryngoscopy (34000) Indication: patient symptoms requiring evaluation of pharyngeal/laryngeal/hypopharyn geal structures Surgeon: Mary Schneider MD Informed Consent: The procedure, risks, and benefits were discussed with the patient and verbal consent obtained to proceed. Procedure: Topical anesthesia (lidocaine) was used to spray the nasal mucosa. A flexible laryngoscopy was inserted through the nasal cavity. The scope was then passed through the nasopharynx, oropharynx, and supraglottis. The vallecula, hypopharynx, supraglottis, glottis and subglottis were then visualized. The scope was then removed. The patient tolerated the procedure with no complications. Findings: All of the visualized areas noted above were noted to be without evidence of lesions, ulcerations or masses. The vocal folds adduct and abduct fully. Attestation: I performed the procedure in its entirety, or was present with the resident/fellow for the entirety of the procedure. Procedure Biopsy of the left mandible alveolar ridge Indication: Lesion of the left mandible present requiring tissue analysis Surgeon: Mary Schneider MD Informed consent: Risks and benefits were discussed and verbal consent obtained from the patient/guardian prior to proceeding. Anesthesia: Injection with 1:100,000 lidocaine with epinephrine Procedure: After adequate time for analgesia, the lesion was grasped with toothed forceps and a portion sharply transected. The specimen was placed in formalin and sent for analysis. Hemostasis was achieved with a mixture of pressure and silver nitrate. The patient tolerated the procedure well. DATA REVIEWED: Radiology: I personally reviewed the PET from 03/29/24 which demonstrated FDG avidity in bilateral lymph nodes and left mandible. CT neck with incidental right parotid nodule, enlarged right level 2b and left level 2a lymph nodes, stenosis of left ICA. Review of prior medical records: I reviewed the patient's medical records which included a clinic note from Dr. 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 It would be unusual for the small area of necrosis on the mandible to be the source of malignancy for known p16+ SCC in the right lymph node. Biopsy taken today as described above - I do not see a lesion on exam today in the typical areas for p16+ SCC, including the oropharynx or nasopharynx. Discussed cancer of unknown primary and need for addition work up including evaluation in the operating room and possibility of tonsillectomy and base of tongue mucosectomy - He would need pre-admission testing for this, has a pacemaker and seeing applications support lead soon. Will follow up biopsy and call him with the results Mary Schneider MD documented in this encounter [facility] Work Phone: 03-29-2024 History of Presen t illness Narrative Subjective Patient ID: Jeremie Bennett is a 83 y.o. male who presents for Mouth Lesions (Follow up PET [facility] 03/27/24) Pet scan reviewed and there is uptake in the biopsied LN and well as a second contralateral zone 2 LN. There is also uptake involving the gingiva ulcer noted on exam last visit. Family History Problem Relation Name Age of Onset Hypertension Mother Heart disease Mother Stroke Mother Asthma Mother Kidney disease Mother Migraines Mother Other (prostate problem) Father Cancer Father Heart disease Maternal Grandmother Hypertension Maternal Grandmother Hyperlipidemia Maternal Grandmother Cancer Paternal Grandfather Other (stomach problem) Paternal Grandfather Active Ambulatory Problems Diagnosis Date Noted Arteriosclerosis of coronary artery ([facility]) 01/20/2019 Arthritis of ankle, right 01/27/2024 Arthritis of carpometacarpal (CMC) joint of left thumb 01/27/2024 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[facility]) 01/27/2024 BMI 29.0-29.9,adult 01/27/2024 Cardiac dysrhythmia 04/03/2022 Ventricular tachycardia ([facility]) 01/27/2024 Carpal tunnel syndrome, left 01/27/2024 Carpal tunnel syndrome, right 01/27/2024 Cervical lymphadenopathy 01/27/2024 Spondylosis of cervical spine 01/27/2024 Cervical vertebral fusion 04/03/2022 Spondylosis of lumbar spine 01/27/2024 Chronic venous insufficiency 01/27/2024 Colon polyp 01/27/2024 Type 2 diabetes mellitus ([facility]) 01/27/2024 Type 2 diabetes mellitus without complication, without long-term current use of insulin ([facility]) 04/14/2023 Diabetic autonomic neuropathy associated with type 2 diabetes mellitus ([facility]) 04/14/2023 Diabetic peripheral neuropathy associated with type 2 diabetes mellitus ([facility]) 01/27/2024 Diverticulosis 01/27/2024 Dysphagia 04/14/2023 Essential hypertension ([facility]) 04/03/2022 Excessive daytime sleepiness 01/27/2024 FH: stomach cancer 04/14/2023 Chronic GERD 01/27/2024 GERD with apnea 01/27/2024 Glaucoma ([facility]) 04/03/2022 Hemorrhoids 01/27/2024 History of colon polyps 01/27/2024 History of malignant neoplasm of prostate 04/03/2022 NOORVIK (hard of hearing) 04/03/2022 Hypercholesterolemia (CMS/HCC) 04/03/2022 [...] Diverticulitis GERD (gastroesophageal reflux disease) HTN (hypertension) ([facility]) Migraine headache ([facility]) Pain management Paronychia of great toe Personal history of other medical treatment 04/2018 Sinus tarsi syndrome of right foot Sleep apnea Toe pain, right Type 2 diabetes mellitus with diabetic neuropathy ([facility]) Past Surgical History: Procedure Laterality Date CARDIAC CATHETERIZATION 08/30/2019 CATARACT EXTRACTION Bilateral CERVICAL FUSION 2015 C3-C4-C5 CHOLECYSTECTOMY HERNIA REPAIR 2001 INSERT / REPLACE / REMOVE PACEMAKER 2014 pacemaker insertion OTHER SURGICAL HISTORY 2004 ablation OTHER SURGICAL HISTORY 2006 sphincterotomy [place] CHOLECYSTECTOMY 02/2020 Laparoscopic Cholecystectomy - [place] IMPLANT ARTIFICIAL SPHINCTER 2017 PROSTATE 2000 TONSILLECTOMY 1970 Allergies Allergen Reactions Niacin Itching and Unknown Wound Dressing Adhesive Unknown Current Outpatient Medications on File Prior to Visit Medication Sig Dispense Refill amLODIPine (Norvasc) 5 MG tablet Take 5 mg by mouth in the morning. aspirin 81 MG EC tablet Take 81 mg by mouth in the morning. szqkgipbjn-qlnmyycozdxje-ampibh ne 50-325-40 MG tablet Take 1 tablet [...] BY MOUTH TWICE DAILY 180 capsule 3 No current facility-administered medications on file prior to visit. Objective Last Recorded Vitals Vitals: 03/29/24 1006 BP: 138/70 ENT Physical Exam Constitutional Appearance: patient appears well-developed, well-nourished and well-groomed, Communication/Voice: communication appropriate for developmental age; vocal quality normal; Assessment/Plan Diagnoses and all orders for this visit: 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) Ulcer of gingiva Pt has an ulcer of the left mandible with intense PET uptake and vargas zone 2 nodes c/w mets. 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 Tx of primary tumor will likely require a marginal mandibulectomy. I will have pt see Dr Mary Schneider at for tx. I will see back one tx completed for surveillance exams. documented in this encounter [facility] 03-27-2024 History of Presen t illness Narrative RADIOLOGY SERVICE PROGRESS NOTE SERVICE DATE: 03/27/2024 SERVICE TIME: 10:14 AM PATIENT IDENTITY VERIFICATION COMPLETED USING TWO (2) STANDARD IDENTIFIERS: Name and Date of confirmed by patient verbally FALL SCREENING: Has the patient had 2 falls in the last year or 1 fall with injury or currently using an Ambulatory Assistive Device (Walker, Cane, Wheelchair, Crutches, etc.)? No PATIENT GENDER DATA: .male ALLERGIES: Reviewed and unchanged MEDICATIONS REVIEWED: Not applicable PATIENT RELEVANT IMPLANT DATA REVIEWED: Not Applicable PATIENT PRESENTS WITH AN IMPLANTABLE OR ATTACHED MORTGAGE LOAN PROCESSING CLERK: No CREATININE: No results found for: CREAT , EGFROTH , EGFRAA P.O.C.T. RESULTS: POC done: Yes, See Lab Tab March 27, [address] PERFORMED: No IV SITE: Ambulatory: A peripheral IV was started in the Left antecubital site with a Angio cath: 24 gauge. POST EXAM PIV STATUS: Discontinued PROCEDURE TYPE: NM INJECT: PET/CT HEAD, NECK, BODY SCAN. 10.1 mCi F18 FDG. No other medications given.. ADMINISTRATION TIME: 1003 PATIENT DISCHARGED TO: Ambulatory patient, left [place] department area. Is this a therapy: No A Diagnostic radioactive procedure has taken place, with no further precautions necessary other than routine body substance precautions. More information regarding radiation safety can be found using this link: [email or web address]% 20Nuclear%20Medicine%20Procedur [email or web address] SIGNATURE: RT Jennifer(R) PATIENT NAME: Jeremie Bennett DATE: March 27, 2024 TIME: 10:14 AM PAGER/CONTACT #: documented in this encounter [facility] 03-27-2024 Note HNO ID: [id number] Author: KANDI RODRIGUEZ RT(R) Service: ? Author Type: Technologist Type: Progress Notes Filed: 03/27/2024 10:15 Note Text: RADIOLOGY SERVICE PROGRESS NOTE SERVICE DATE: 03/27/2024 SERVICE TIME: 10:14 AM PATIENT IDENTITY VERIFICATION COMPLETED USING TWO (2) STANDARD IDENTIFIERS: Name and Date of confirmed by patient verbally FALL SCREENING: Has the patient had 2 falls in the last year or 1 fall with injury or currently using an Ambulatory Assistive Device (Walker, Cane, Wheelchair, Crutches, etc.)? No PATIENT GENDER DATA: .male ALLERGIES: Reviewed and unchanged MEDICATIONS REVIEWED: Not applicable PATIENT RELEVANT IMPLANT DATA REVIEWED: Not Applicable PATIENT PRESENTS WITH AN IMPLANTABLE OR ATTACHED MORTGAGE LOAN PROCESSING CLERK: No CREATININE: No results found for: CREAT , EGFROTH , EGFRAA P.O.C.T. RESULTS: POC done: Yes, See Lab Tab March 27, [address] PERFORMED: No IV SITE: Ambulatory: A peripheral IV was started in the Left antecubital site with a Angio cath: 24 gauge. POST EXAM PIV STATUS: Discontinued PROCEDURE TYPE: NM INJECT: PET/CT HEAD, NECK, BODY SCAN. 10.1 mCi F18 FDG. No other medications given.. ADMINISTRATION TIME: 1003 PATIENT DISCHARGED TO: Ambulatory patient, left [place] department area. Is this a therapy: No A Diagnostic radioactive procedure has taken place, with no further precautions necessary other than routine body substance precautions. More information regarding radiation safety can be found using this link: [email or web address]%20Nuclear%20Medici [email or web address] SIGNATURE: FLORY Rodriguez) PATIENT NAME: Jeremie Bennett DATE: March 27, 2024 TIME: 10:14 AM PAGER/CONTACT #: [facility] 03-08-2024 History of Presen t illness Narrative Images from the original note were not included. Subjective Patient ID: Jeremie Bennett is a 83 y.o. 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 Family History Problem Relation Name Age of Onset Hypertension Mother Heart disease Mother Stroke Mother Asthma Mother Kidney disease Mother Migraines Mother Other (prostate problem) Father Cancer Father Heart disease Maternal Grandmother Hypertension Maternal Grandmother Hyperlipidemia Maternal Grandmother Cancer Paternal Grandfather Other (stomach problem) Paternal Grandfather Active Ambulatory Problems Diagnosis Date Noted Arteriosclerosis of coronary artery ([facility]) 01/20/2019 Arthritis of ankle, right 01/27/2024 Arthritis of carpometacarpal (CMC) joint of left thumb 01/27/2024 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[facility]) 01/27/2024 BMI 29.0-29.9,adult 01/27/2024 Cardiac dysrhythmia 04/03/2022 Ventricular tachycardia ([facility]) 01/27/2024 Carpal tunnel syndrome, left 01/27/2024 Carpal tunnel syndrome, right 01/27/2024 Cervical lymphadenopathy 01/27/2024 Spondylosis of cervical spine 01/27/2024 Cervical vertebral fusion 04/03/2022 Spondylosis of lumbar spine 01/27/2024 Chronic venous insufficiency 01/27/2024 Colon polyp 01/27/2024 Type 2 diabetes mellitus ([facility]) 01/27/2024 Type 2 diabetes mellitus without complication, without long-term current use of insulin ([facility]) 04/14/2023 Diabetic autonomic neuropathy associated with type 2 diabetes mellitus ([facility]) 04/14/2023 Diabetic peripheral neuropathy associated with type 2 diabetes mellitus ([facility]) 01/27/2024 Diverticulosis 01/27/2024 Dysphagia 04/14/2023 Essential hypertension (CMS/HCC) 04/03/2022 Excessive daytime sleepiness 01/27/2024 FH: stomach cancer 04/14/2023 Chronic GERD 01/27/2024 GERD with apnea 01/27/2024 Glaucoma ([facility]) 04/03/2022 Hemorrhoids 01/27/2024 History of colon polyps 01/27/2024 History of malignant neoplasm of prostate 04/03/2022 NOORVIK (hard of hearing) 04/03/2022 Hypercholesterolemia (CMS/HCC) 04/03/2022 [...] reflux disease) HTN (hypertension) (CMS/HCC) Migraine headache ([facility]) Pain management Paronychia of great toe Personal history of other medical treatment 04/2018 Sinus tarsi syndrome of right foot Sleep apnea Toe pain, right Type 2 diabetes mellitus with diabetic neuropathy (CMS/HCC) Past Surgical History: Procedure Laterality Date CARDIAC CATHETERIZATION 08/30/2019 CATARACT EXTRACTION Bilateral CERVICAL FUSION 2015 C3-C4-C5 CHOLECYSTECTOMY HERNIA REPAIR 2001 INSERT / REPLACE / REMOVE PACEMAKER 2014 pacemaker insertion OTHER SURGICAL HISTORY 2004 ablation OTHER SURGICAL HISTORY 2006 sphincterotomy [place] CHOLECYSTECTOMY 02/2020 Laparoscopic Cholecystectomy - [place] IMPLANT ARTIFICIAL SPHINCTER 2017 PROSTATE 2000 TONSILLECTOMY 1970 Allergies Allergen Reactions Niacin Itching and Unknown Wound Dressing Adhesive Unknown Current Outpatient Medications on File Prior to Visit Medication Sig Dispense Refill amLODIPine (Norvasc) 5 MG tablet Take 5 mg by mouth in the morning. aspirin 81 MG EC tablet Take 81 mg by mouth in the morning. xgptfhjuyp-lkzocmhvwolzy-csgndy ne 50-325-40 MG tablet Take 1 tablet [...] BY MOUTH TWICE DAILY 180 capsule 3 No current facility-administered medications on file prior to visit. Objective Last Recorded Vitals Vitals: 03/08/24 0925 BP: 124/66 ENT Physical Exam Oral Cavity/Oropharynx OC/OP comments: OC/OP/IDL - left mandibular gingiva ulceration. No other mass or ulcer Patient ID: Jeremie Bennett is a 83 y.o. male. Procedures A diagnostic flexible fiberoptic laryngoscopy was performed. The flexible fiberoptic laryngoscope was placed into the nose and advanced to the level of the tip of the epiglottis. Examination of the larynx including both surfaces of the epiglottis false and true vocal folds, arytenoids and surrounding mucosal surfaces show no evidence of lesion, ulceration or mass. Normal bilateral true vocal fold motion is present. 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 Left gingiva ulcer is a bit suspicious but contralateral to the LN. I will arrange for a PET scan. After the PET we will plan bx of the gingival and any other areas suspicious for the primary documented in this encounter [facility] 03-06-2024 Telephone encounter Note Pt is scheduled for 03/08/[address] Ham. [facility] 03-06-2024 Miscellaneous Notes Pt is scheduled for 03/08/[address] Ham. Move up pt's appt documented in this encounter [facility] 03-06-2024 Telephone encounter Note Move up pt's appt [facility] Work Phone: 02-16-2024 History of Presen t illness Narrative [...] Diagnosis Date Noted Arteriosclerosis of coronary artery ([facility]) 01/20/2019 Arthritis of ankle, right 01/27/2024 Arthritis of carpometacarpal (CMC) joint of left thumb 01/27/2024 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CMS/HCC) 01/27/2024 BMI 29.0-29.9,adult 01/27/2024 Cardiac dysrhythmia 04/03/2022 Ventricular tachycardia (CMS/HCC) 01/27/2024 Carpal tunnel syndrome, left 01/27/2024 Carpal tunnel syndrome, right 01/27/2024 Cervical lymphadenopathy 01/27/2024 Spondylosis of cervical spine 01/27/2024 Cervical vertebral fusion 04/03/2022 Spondylosis of lumbar spine 01/27/2024 Chronic venous insufficiency 01/27/2024 Colon polyp 01/27/2024 Type 2 diabetes mellitus (CMS/HCC) 01/27/2024 Type 2 diabetes mellitus without complication, without long-term current use of insulin ([facility]) 04/14/2023 Diabetic autonomic neuropathy associated with type 2 diabetes mellitus (CMS/HCC) 04/14/2023 Diabetic peripheral neuropathy associated with type 2 diabetes mellitus (CMS/HCC) 01/27/2024 Diverticulosis 01/27/2024 Dysphagia 04/14/2023 Essential hypertension (CMS/HCC) 04/03/2022 Excessive daytime sleepiness 01/27/2024 FH: stomach cancer 04/14/2023 Chronic GERD 01/27/2024 GERD with apnea 01/27/2024 Glaucoma (CMS/HCC) 04/03/2022 Hemorrhoids 01/27/2024 History of colon polyps 01/27/2024 History of malignant neoplasm of prostate 04/03/2022 NOORVIK (hard of hearing) 04/03/2022 Hypercholesterolemia (CMS/HCC) 04/03/2022 Hyperlipidemia (CMS/HCC) 04/03/2022 Insomnia 04/03/2022 Internal derangement of right knee 01/27/2024 Irregular bowel habits 04/14/2023 Lump on neck 04/14/2023 Migraines (CMS/HCC) 04/03/2022 Aortic valve regurgitation 04/26/2019 Mitral valve regurgitation 04/26/2019 Neuropathy 04/03/2022 NPH (normal pressure hydrocephalus) ([facility]) 04/03/2022 Central sleep apnea 01/27/2024 Obstructive sleep apnea 04/03/2022 Osteoarthritis 04/03/2022 Osteoarthritis of carpometacarpal (CMC) joint of left thumb 01/27/2024 Osteochondritis dissecans of right ankle 01/27/2024 Other specified disorders of synovium, right ankle and foot 01/27/2024 Pain in right ankle and joints of right foot 01/27/2024 Pancreatic cyst ([facility]) 04/14/2023 Paresthesia of both hands 01/27/2024 Edema of lower extremity 04/26/2019 Polyneuropathy associated with underlying disease ([facility]) 01/27/2024 Presence of cardiac pacemaker 03/14/2021 Prostate cancer ([facility]) 04/03/2022 Prostatitis 04/14/2023 Skin cancer 04/03/2022 Swollen lymph nodes 04/14/2023 Thoracic aortic ectasia ([facility]) 01/27/2024 Vitamin D deficiency 04/03/2022 Resolved Ambulatory Problems Diagnosis Date Noted Bloating 01/27/2024 Cellulitis of toe of left foot 01/27/2024 Cellulitis of toe of right foot 01/27/2024 Chest wall pain 04/03/2022 Gallstones 04/03/2022 COVID-19 11/10/2022 Entrapment of left ulnar nerve 01/27/2024 Entrapment of right ulnar nerve 01/27/2024 Fecal soiling 04/03/2022 Fecal urgency 04/14/2023 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[facility]) 01/27/2024 Lower abdominal pain 04/03/2022 Pain of upper abdomen 04/03/2022 Obesity with body mass index 30 or greater 04/03/2022 Onychomycosis 01/27/2024 Otitis media 04/14/2023 Pain in limb 01/27/2024 Peptic ulcer 04/03/2022 Right flank pain 04/03/2022 Unsteadiness on feet 01/27/2024 Mixed incontinence 01/27/2024 Past Medical History: Diagnosis Date Anemia At risk for falls BMI 32.0-32.9,adult Cataracts Cholelithiasis 2020 Diverticulitis GERD (gastroesophageal reflux disease) HTN (hypertension) ([facility]) Migraine headache (CMS/HCC) Pain management Paronychia of [...] 2005 ablation OTHER SURGICAL HISTORY 2007 sphincterotomy AL CHOLECYSTECTOMY 02/2020 Laparoscopic Cholecystectomy - [place] IMPLANT ARTIFICIAL SPHINCTER 2017 PROSTATE 2000 TONSILLECTOMY 1970 Allergies Allergen Reactions Niacin Itching and Unknown Wound Dressing Adhesive Unknown Current Outpatient Medications on File Prior to Visit Medication Sig Dispense Refill amLODIPine (Norvasc) 5 MG tablet Take 5 mg by mouth in the morning. aspirin 81 MG EC tablet Take 81 mg by mouth in the morning. czaacmmwhf-qagkvqzowgwtk-zfiirm ne 50-325-40 MG tablet Take 1 tablet [...] core needle bx documented in this encounter [facility] 02-16-2024 History of Presen t illness Narrative [facility] Neurology Jeremie Bennett 1940 Subjective: Vertigo -He denies any recent episodes -denies recent falls -denies any changes 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 with eyeglass assembler Chronic back/neck pain -his neck pain has been about the same since last visit -he denies pain into the arms -he admits a few CORTEZ -he has 3-4 per month -CORTEZ located occipital -he is wanting an abortive medication -he was on Fiorcet and states this helped -Back pain in low back -he is seeing pain management , Dr. Robins in [place] -he is following up with them next [...] Oral, Daily aspirin 81 mg, Oral, Daily pbjiczvuhk-upqccmiuwyqtf-ccmzzy ne 50-325-40 MG tablet 1 tablet, Oral, [...] of toe of right foot 01/27/2024 Cholelithiasis 2019 Chronic venous insufficiency Diverticulitis Diverticulosis Entrapment of left ulnar nerve 01/27/2024 Entrapment of right ulnar nerve 01/27/2024 Gallstones 04/03/2022 no surgery as yet no surgery as yet GERD (gastroesophageal reflux disease) Glaucoma (CMS/HCC) HTN (hypertension) (CMS/HCC) Hyperlipidemia (CMS/HCC) 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CMS/HCC) 01/27/2024 Migraine headache (CMS/HCC) Mixed incontinence 01/27/2024 Other specified disorders of synovium, right ankle and foot Pain management Pain of upper abdomen 04/03/2022 Paronychia of great toe bilateral Peptic ulcer 04/03/2022 Personal history of other medical treatment 04/2018 body map scanned in for biopsies and trtm Prostate cancer (CMS/HCC) Right flank pain 04/03/2022 Sinus tarsi syndrome of right foot Sleep apnea Toe pain, right Type 2 diabetes mellitus with diabetic neuropathy (CMS/HCC) Ventricular tachycardia (CMS/HCC) Past Surgical History: Past Surgical History: Procedure Laterality Date CARDIAC CATHETERIZATION 08/30/2019 CATARACT EXTRACTION Bilateral CERVICAL FUSION 2016 C3-C4-C5 CHOLECYSTECTOMY HERNIA REPAIR 2002 INSERT / REPLACE / REMOVE PACEMAKER 2015 pacemaker insertion OTHER SURGICAL HISTORY 2005 ablation OTHER SURGICAL HISTORY 2007 sphincterotomy AL CHOLECYSTECTOMY 02/2020 Laparoscopic Cholecystectomy - [place] IMPLANT ARTIFICIAL SPHINCTER 2017 PROSTATE 2000 TONSILLECTOMY [...] 2+ 2+ Patellar 2+ 2+ Coordination Right: Clyait-lu-mbbo normal.Left: Wvcotl-tn-ommv normal. Gait Casual gait is normal including [...] of gabapentin and noticed no worsening . Michael provides benefit. 5. Carpal tunnel syndrome on [...] in 6 months documented in this encounter [facility] 02-07-2024 Telephone encounter Note Images from the original note were not included. IPMN surveillance. Review OSH images and advise please [facility] 11/09/2023 [facility] 02-07-2024 Miscellaneous Notes Images from the original note were not included. IPMN surveillance. Review OSH images and advise please [facility] Panc[facility] 11/09/2023 Surveillance imaging completed at OSH for IPMN surveillance. Call to patient to discuss plan of care. Surveillance imaging needed to evaluate pancreas cyst. Dx: IPMN Per Dr. Vaishali Pringle- recommended repeat MRI in 1 year Last imaging 02/17/2024 Orders placed: MRI Pancreas w/wo IVCON Patient's local GI ordered MRI and it was completed in 12/2023 at [facility]. Our office will request results for Dr. Pringle's review. Follow up will be determined upon Dr. Pringle's review of results. documented in this encounter [facility] 02-04-2024 Telephone encounter Note Surveillance imaging completed at OSH for IPMN surveillance. [facility] 02-02-2024 Telephone encounter Note Call to patient to discuss plan of care. Surveillance imaging needed to evaluate pancreas cyst. Dx: IPMN Per Dr. Vaishali Pringle- recommended repeat MRI in 1 year Last imaging 02/17/2024 Orders placed: MRI Pancreas w/wo IVCON Patient's local GI ordered MRI and it was completed in 12/2023 at [facility]. Our office will request results for Dr. Pringle's review. Follow up will be determined upon Dr. Pringle's review of results. [facility] 02-01-2024 History of Presen t illness Narrative Subjective Patient ID: Jeremie Bennett is a 83 y.o. male who presents for Neck Mass (Ultrasound 01/20/24. Lump right side of neck below ear. Onset about 6 wk ago) Pt reports 6 weeks ago he developed right sup neck swelling. Has been tx with clindamycin 2 times initially improved somewhat, but has failed to resolve completely. Somewhat tender and itches. No change when eats. Review of Systems All other systems reviewed and are negative. 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[facility]) 01/27/2024 BMI 29.0-29.9,adult 01/27/2024 Cardiac dysrhythmia 04/03/2022 Ventricular tachycardia ([facility]) 01/27/2024 Carpal tunnel syndrome, left 01/27/2024 Carpal tunnel syndrome, right 01/27/2024 Cervical lymphadenopathy 01/27/2024 Spondylosis of cervical spine 01/27/2024 Cervical vertebral fusion 04/03/2022 Spondylosis of lumbar spine 01/27/2024 Chronic venous insufficiency 01/27/2024 Colon polyp 01/27/2024 Type 2 diabetes mellitus ([facility]) 01/27/2024 Type 2 diabetes mellitus without complication, without long-term current use of insulin ([facility]) 04/14/2023 Diabetic autonomic neuropathy associated with type 2 diabetes mellitus ([facility]) 04/14/2023 Diabetic peripheral neuropathy associated with type 2 diabetes mellitus ([facility]) 01/27/2024 Diverticulosis 01/27/2024 Dysphagia 04/14/2023 Essential hypertension ([facility]) 04/03/2022 Excessive daytime sleepiness 01/27/2024 FH: stomach cancer 04/14/2023 Chronic GERD 01/27/2024 GERD with apnea 01/27/2024 Glaucoma (CMS/HCC) 04/03/2022 Hemorrhoids 01/27/2024 History of colon polyps 01/27/2024 History of malignant neoplasm of prostate 04/03/2022 NOORVIK (hard of hearing) 04/03/2022 Hypercholesterolemia (CMS/HCC) 04/03/2022 [...] incontinence 01/27/2024 Past Medical History: Diagnosis Date At risk for falls BMI 32.0-32.9,adult Cataracts Cholelithiasis 2019 Diverticulitis GERD (gastroesophageal reflux disease) HTN (hypertension) (CMS/HCC) Migraine headache (CMS/[facility]) Pain management Paronychia of great toe Personal history of other medical treatment 04/2018 Sinus tarsi syndrome of right foot Sleep apnea Toe pain, right Type 2 diabetes mellitus with diabetic neuropathy (CMS/[facility]) Past Surgical History: Procedure Laterality Date CARDIAC CATHETERIZATION 08/30/2019 CATARACT EXTRACTION Bilateral CERVICAL FUSION 2016 C3-C4-C5 HERNIA REPAIR 2002 INSERT / REPLACE / REMOVE PACEMAKER 2015 pacemaker insertion OTHER SURGICAL HISTORY 2005 ablation OTHER SURGICAL HISTORY 2007 sphincterotomy AL CHOLECYSTECTOMY 02/2020 Laparoscopic Cholecystectomy - [place] IMPLANT ARTIFICIAL SPHINCTER 2017 PROSTATE 2000 TONSILLECTOMY 1970 Allergies Allergen Reactions Niacin Itching and Unknown Wound Dressing Adhesive Unknown Current Outpatient Medications on File Prior to Visit Medication Sig Dispense Refill amLODIPine (Norvasc) 5 MG tablet Take 5 mg by mouth in the morning. aspirin 81 MG EC tablet Take 81 mg by mouth in the morning. jjtjmhvhft-rkxprglyriajv-wyhfay ne 50-325-40 MG tablet Take 1 tablet [...] capsule Take 3 capsules by mouth Daily rosuvastatin (Crestor) 10 MG tablet Take 10 mg by mouth in the morning. sotalol (Betapace) 80 MG tablet Take 80 mg by mouth. tiZANidine (Zanaflex) 4 MG tablet TAKE 1/2 TO 1 TABLET BY MOUTH AT BEDTIME 90 tablet 2 zonisamide (Zonegran) 25 MG capsule TAKE 1 CAPSULE BY MOUTH TWICE DAILY 180 capsule 3 [DISCONTINUED] tiZANidine (Zanaflex) 4 MG capsule Take 4 mg by mouth in the morning and 4 mg in the evening and 4 mg before bedtime. No current facility-administered medications on file prior to visit. Objective Last Recorded Vitals Vitals: 02/01/24 1307 BP: 101/71 ENT Physical Exam Constitutional Appearance: patient appears well-developed and well-nourished, Head and Face Appearance: head appears normal and face appears atraumatic; Ear Ear comments: Vargas ears normal Nose External Nose: nares patent bilaterally; external nose normal; Internal Nose: nasal mucosa normal; Oral Cavity/Oropharynx Lips: normal; Teeth: normal; Gums: gingiva normal; Tongue: normal; Oral mucosa: normal; Hard palate: normal; Neck Neck: neck normal; neck mass present; Thyroid: thyroid normal; Neck comments: 2cm mass of RT parotid tail Respiratory Inspection: breathing unlabored; normal breathing rate; Auscultation: breath sounds are clear; Cardiovascular Inspection: extremities are warm and well perfused; no peripheral edema present; Auscultation: regular rate and rhythm; Assessment/Plan Diagnoses and all orders for this visit: Parotid mass RT parotid tail, 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 CT neck with contrast to discern its actual location and nature documented in this encounter [facility] 11-29-2023 Note Patient Education Gastroenterology Abdominal [...] candy. ? Chewing gum. Medicines ? Take lkag-fru-iagxwhq and prescription medicines only as told by [...] provider. Document Revised: 12/03/2020 Document Reviewed: 12/03/2020 [facility] Patient Education ? 2022 readfy. [facility] 09-17-2023 Hospital Discharg e instructions Patient Education [...] grapefruit, pineapple, and nury. Vegetables Deep-fried vegetables. [place] Citizen fries. Any vegetables prepared with added fat. [...] provider. Document Revised: 11/11/2020 Document Reviewed: 11/11/2020 [employer] Patient Education 2022 readfy. Follow Up Care 06/25/2023 12:06:59 With:Sammi CASON, Jaiden Douglas [facility] Address: [address] [place], [place] [address]dict [place], [address] [place] [address]- [phone] When:3 months [facility] 06-16-2023 Note [id number] [facility] 05-31-2023 Evaluation note Encounter Date Diagnosis Assessment [...] months. A prescription was sent to the [facility] for new supplies throughout the year. He [...] sleepiness, or poor response to treatment. . [facility] Other 01-09-2024 Hospital Discharge instructions Patient Education [...] grapefruit, pineapple, and nury. Vegetables Deep-fried vegetables. [place] Citizen fries. Any vegetables prepared with added fat. [...] provider. Document Revised: 11/11/2020 Document Reviewed: 11/11/2020 [employer] Patient Education 2022 readfy. Follow Up Care 02/25/2023 14:06:51 With:Anjali Ruby CNP Address: When:1 month [facility] 11-20-2023 Miscellaneous Notes* Telephone Encounter - Lolly Dumont - 04/05/2023 9:44 AM EST Received records from [facility]. Reports for imaging listed below scanned. Images pushed through 09/27/2019 US Right Upper Quad 03/31/2020 CT ABD/PEL US Right Upper Quad [facility] MRI Abdomen 02/22/2023 US Soft Tissue Head & Neck Received many misc. labs & ER reports Operative Note & pathology from Laparoscopic Cholecystectomy Patient seen 04/01, please review, thank you! [facility]* Debby Holland MA - [...] Temperature: No Drains: No [facility] History of Present illness Narrative* Vaishali [...] Level: 4 - Moderate [facility]23 NoteHNO ID: [id number] Author: Vaishali Pringle MD Service: ? Author [...] Pringle MD Medical De (more content not included)...[facility]10-25-2023 Hospital Discharge instructions Patient Education 03/10/2023 09:19:04 [...] Follow these instructions at home: Medicines Take hgpm-cpk-bvofqid and prescription medicines only as told by [...] Watch your condition for any changes. Take azgv-jfo-roxdedw and prescription medicines only as told by [...] provider. Document Revised: 06/21/2020 Document Reviewed: 09/11/2019 [employer] Patient Education 2022 readfy. Follow Up Care 03/09/2023 09:58:32 With:Anjali Ruby CNP Address: When:1 to 2 weeks Comments:Following EGD. [facility] 10-12-2023 Hospital Discharge instructions [...] Follow these instructions at home: Medicines Take bxjt-qlk-iohtwrh and prescription medicines only as told by your health care provider. If you were prescribed an antibiotic medicine, take it as told by your health care provider. Do notstop taking the antibiotic even if you start to feel better. Eating and drinking Make any diet changes as told by your health care provider. Work with a diet and senior project controls specialist (dietitian) to create an eating plan [...] provider. Document Revised: 12/21/2020 Document Reviewed: 12/21/2020 [employer] Patient Education 2022 readfy. Follow Up Care 02/22/2023 16:17:47 With:Anjali Ruby CNP Address: When:3 months [facility] 09-15-2023 Evaluation note* Encounter [...] months. A prescription was sent to the [facility] for new supplies throughout the year. He [...] sleepiness, or poor response to treatment. . [facility] Other 08-29-2023 Hospital Discharge instructions Patient Education [...] including vitamins, herbs, eye drops, creams, and hcdo-ykh-qlxejgw medicines. Any problems you or family members [...] provider tells you to take them. Taking etdk-gat-ssghroh medicines, vitamins, herbs, and supplements. General instructions [...] provider. Document Revised: 04/27/2022 Document Reviewed: 12/24/2021 [employer] Patient Education 2022 readfy. Follow Up Care 12/28/2022 08:53:11 With:Anjali Ruby CNP Address: When:1 to 2 weeks Comments:Following EGD/Colonoscopy. [facility] 05-30-2023 Evaluation note* Encounter Date [...] sleepiness, or poor response to treatment. . [facility] Other 05-09-2023 Hospital Discharge instructions Patient Education [...] managed at home with rest, fluids, and orfw-rpw-ziglrvs medicines. Serious symptoms may be treated in [...] water are not available, use alcohol-based hand art display maker. Make sure that all people in your [...] managed at home with rest, fluids, and fmyu-mlf-gcstoxq medicines. This information is not intended to replace advice given to you by your health care provider. Make sure you discuss any questions you have with your health care provider. Document Revised: 04/23/2022 Document Reviewed: 04/23/2022 [employer] Patient Education 2022 readfy. Follow Up Care 09/22/2022 16:24:11 With:Sabino Cooper Address: [facility] [place] [address] Business (2) When:09/25/2022 18:12:09 [facility]05-09-2023 Evaluation note* Encounter Date Diagnosis Assessment [...] no improvement in 2 to 3 days. [facility] Other 04-11-2023 NoteCONSULTATION CONSULTATION DATE: 08/25/2022 TO: [...] our patients to inform us about any pkaj-squ-qtkpfnt medications or herbal remedies/nutritional supplements/alternative remedies. 2. [...] treatment options with their primary care provider.[facility] [id number] Evaluation note * Encounter Date Diagnosis Assessment [...] symptoms if he does not take his exet-ydi-qtwrhtl hypnotic, sleep hygiene issues may also be [...] neuropathy pain Jul, Coronary artery disease involving [place] heart without angina pectoris, unspecified vessel or [...] he does have a defibrillator in place [facility] Other 03-09-2023 NoteCONSULTATION CONSULTATION DATE: 07/23/2022 HISTORY [...] gain authorization to hold the Plavix pre-procedure.[facility] [id number] NotePROCEDURE: XR ANKLE RT MIN 3 VIEWS COMPARISON: 08/22/2020 HISTORY: Pain of right ankle joint FINDINGS: BONES:No acute fracture or dislocation. Moderate enthesopathic spurring of the calcaneus. Degenerative changes with bone fragments along the inferior medial malleolus, stable. SOFT TISSUES:Negative. No visible soft tissue swelling. EFFUSION:None visible. OTHER: Negative. IMPRESSION: Stable degenerative changes Electronically authenticated by: ERWIN FALCON Date: 2022-07-22 10:37[facility] [id number] NotePROCEDURE: XR FOOT RT MIN 3 VIEWS [...] authenticated by: CLARISSA GARCIA Date: 2022-06-16 15:25[facility] [id number] Hospital Discharge instructions Patient Education 05/26/2022 13:46:25 [...] [facility] [address], [place] [address]- Business (1) When: Unknown Comments:Office will call to schedule follow up [facility]08-11-2022 NoteCONSULTATION PROCEDURE DATE: 12/25/2021 PRE AND [...] will be followed up in the clinic.[facility] 12-25-2021 NoteCONSULTATION CONSULTATION DATE: 12/25/2021 This [...] recently seen at an urgent care in [place] for left thumb pain and joint swelling. [...] in three months' time unless otherwise indicated.[facility] [id number] Evaluation note* Encounter Date Diagnosis Assessment Notes [...] will help you get into a specialist. [facility] Other chief complaint+Reason for visit Narrative* Chief Complaint N54.2 Self Referral [facility] Work Phone: Chiwu complaint+Reason for visit Narrative* Chief Complaint N54.2 Self Referral [id number] m54.12 m54.2 [facility] Work Phone: chief complaint+Reason for visit Narrative* Chief Complaint N54.2 Self Referral [id number] [id number] m54.2 isidro, 31-90 [facility] Work Phone: Evaluation + Plan note No data available for this section [facility] Future Appointments Appointment Date:11/23/2022 09:00:00 AM Scheduled Provider:Sabino Cooper MD Location:[facility]ment Type: [facility] Future Appointments Appointment Date:12/15/2022 12:00:00 PM Scheduled Provider:Anjali Ruby CNP Location:[facility] Appointment Type:[facility] New Patient Appointment Date:05/31/2023 09:00:00 AM Scheduled Provider:[facility]ab[facility] Cooper [facility] Appointment Date:11/08/2023 01:00:00 PM Scheduled Provider: Location:[facility] Appointment Type:FM Medicare Wellness Subsequent Future Scheduled Tests Laboratory* HgbA1c 11/23/22 * CBC w/ Auto Diff 11/23/22 * Comprehensive Metabolic Panel 11/23/22 * Lipid Panel 11/23/22 [facility] Future Appointments Appointment Date:05/31/2023 09:00:00 AM Scheduled Provider:Sabino Cooper MD Location:[facility] Appointment Type: Open Appointment Date:11/08/2023 01:00:00 PM Scheduled Provider: Location:[facility] Appointment Type: Medicare Wellness Subsequent Future Scheduled Tests Laboratory* HgbA1c 11/23/22 * CBC w/ Auto Diff 11/23/22 * Comprehensive Metabolic Panel 11/23/22 * Lipid Panel 11/23/22 [facility] Future Appointments Appointment Date:05/31/2023 09:00:00 AM Scheduled Provider:Sabino Cooper MD Location:[facility] Appointment Type: Open Appointment Date:11/08/2023 01:00:00 PM Scheduled Provider: Location:[facility] Appointment Type: Medicare Wellness Subsequent Future Scheduled Tests Laboratory* HgbA1c 11/23/22 * CBC w/ Auto Diff 11/23/22 * Comprehensive Metabolic Panel 11/23/22 * Lipid Panel 11/23/22 Radiology* CT Abdomen w/ Contrast 01/12/23 [facility] Evaluation + Plan note Future Appointments Appointment Date:05/03/2023 01:40:00 PM Scheduled Provider:Anjali Ruby CNP Location:[facility] Appointment Type:[facility] Follow Up Appointment Date:05/31/2023 09:00:00 AM Scheduled Provider:Sabino Cooper MD Location:[facility] Appointment Type: Open Appointment Date:11/08/2023 01:00:00 PM Scheduled Provider: Location:[facility] Appointment Type:FM Medicare Wellness Subsequent Future Scheduled Tests Laboratory* HgbA1c 11/23/22 * CBC w/ Auto Diff 11/23/22 * Comprehensive Metabolic Panel 11/23/22 * Lipid Panel 11/23/22 [facility] Evaluation + Plan note Future Appointments Appointment Date:05/03/2023 01:40:00 PM Scheduled Provider:Anjali Ruby CNP Location:[facility] Appointment Type:[facility] Follow Up Appointment Date:05/31/2023 10:00:00 AM Scheduled Provider:Sabino Cooper MD Location:[facility] Appointment Type: Open Appointment Date:11/08/2023 01:00:00 PM Scheduled Provider: Location:[facility] Appointment Type: Medicare Wellness Subsequent Future Scheduled Tests Laboratory* HgbA1c 11/23/22 * CBC w/ Auto Diff 11/23/22 * Comprehensive Metabolic Panel 11/23/22 * Lipid Panel 11/23/22 [facility] Evaluation + Plan note Future Appointments Appointment Date:05/03/2023 01:40:00 PM Scheduled Provider:Anjali Ruby CNP Location:[facility] Appointment Type:[facility] Follow Up Appointment Date:05/31/2023 10:00:00 AM Scheduled Provider:Sabino Cooper MD Location:[facility] Appointment Type: Open Appointment Date:11/08/2023 01:00:00 PM Scheduled Provider: Location:[facility] Appointment Type:FM Medicare Wellness Subsequent Diagnostic Tests Pending * O & P Exam, Routine 03/10/23 * Giardia lamblia, Direct Detection EIA 03/10/23 Future Scheduled Tests Laboratory* HgbA1c 11/23/22 * CBC w/ Auto Diff 11/23/22 * Comprehensive Metabolic Panel 11/23/22 * Lipid Panel 11/23/22 [facility] Future Appointments Appointment Date:05/31/2023 10:00:00 AM Scheduled Provider:Sabino Cooper MD Location:[facility] Appointment Type: Open Appointment Date:06/25/2023 01:20:00 PM Scheduled Provider:Anjali Ruby CNP Location:[facility] Appointment Type:[facility] Follow Up Appointment Date:11/08/2023 01:00:00 PM Scheduled Provider: Location:[facility] Appointment Type:FM Medicare Wellness Subsequent Future Scheduled Tests Laboratory* HgbA1c 11/23/22 * CBC w/ Auto Diff 11/23/22 * Comprehensive Metabolic Panel 11/23/22 * Lipid Panel 11/23/22 [facility] Evaluation + Plan note Future Appointments Appointment Date:10/21/2023 03:00:00 PM Scheduled Provider:Inez Henderson MD Location:[facility] Appointment Type:BAD Follow Up Appointment Date:11/08/2023 01:00:00 PM Scheduled Provider: Location:[facility] Appointment Type: Medicare Wellness Subsequent Appointment Date:11/29/2023 10:15:00 AM Scheduled Provider:Sabino Cooper MD Location:[facility] Appointment Type: Open Future Scheduled Tests Laboratory* U Protein/Creat Ratio 05/31/23 * HgbA1c 11/23/22 * HgbA1c 05/31/23 * Microalbumin Level Urine 05/31/23 * CBC w/ Auto Diff 11/23/22 * Comprehensive Metabolic Panel 11/23/22 * Lipid Panel 11/23/22 [facility] Evaluation + Plan note Future Appointments Appointment Date:10/21/2023 03:00:00 PM Scheduled Provider:Inez Henderson MD Location:[facility] Appointment Type:[facility] Follow Up Appointment Date:11/08/2023 01:00:00 PM Scheduled Provider: Location:[facility] Appointment Type:FM Medicare Wellness Subsequent Appointment Date:11/29/2023 10:15:00 AM Scheduled Provider:Sabino Cooper MD Location:[facility] Appointment Type: Open Diagnostic Tests Pending * Celiac Disease Comprehensive 09/17/23 Future Scheduled Tests Laboratory* U Protein/Creat Ratio 05/31/23 * HgbA1c 11/23/22 * HgbA1c 05/31/23 * Microalbumin Level Urine 05/31/23 * CBC w/ Auto Diff 11/23/22 * Comprehensive Metabolic Panel 11/23/22 * Lipid Panel 11/23/22 [facility] Future App[facility]ments Appointment Date:11/08/2023 01:00:00 PM Scheduled Provider: Location:[facility] Appointment Type:FM Medicare Wellness Subsequent Appointment Date:11/29/2023 10:15:00 AM Scheduled Provider:Sabino Cooper MD Location:[facility] Appointment Type: Open Appointment Date:03/23/2024 02:45:00 PM Scheduled Provider:Inez Henderson MD Location:[facility] Appointment Type:[facility] Follow Up Future Scheduled Tests Laboratory* U Protein/Creat Ratio 05/31/23 * HgbA1c 11/23/22 * HgbA1c 05/31/23 * Microalbumin Level Urine 05/31/23 * CBC w/ Auto Diff 11/23/22 * Comprehensive Metabolic Panel 11/23/22 * Lipid Panel 11/23/22 Radiology* MRI Cholangiogram Pancreatography (mrcp) 10/21/23 [facility] Evaluation + Plan note Future Appointments Appointment Date:11/29/2023 10:15:00 AM Scheduled Provider:Sabino Cooper MD Location:[facility] Appointment Type: Open Appointment Date:03/23/2024 02:45:00 PM Scheduled Provider:Inez Henderson MD Location:[facility] Appointment Type:[facility] Follow Up Appointment Date:11/06/2024 02:30:00 PM Scheduled Provider: Location:[facility] Appointment Type:FM Medicare Wellness Subsequent Future Scheduled Tests Laboratory* U Protein/Creat Ratio 11/24/23 * U Protein/Creat Ratio 05/31/23 * HgbA1c 11/30/23 * HgbA1c 11/23/22 * HgbA1c 05/31/23 * Microalbumin Level Urine 11/24/23 * Microalbumin Level Urine 05/31/23 * CBC w/ Auto Diff 11/23/22 * Comprehensive Metabolic Panel 11/23/22 * Lipid Panel 11/08/23 * Lipid Panel 11/23/22 [facility] App[facility]ments Appointment Date:04/17/2024 10:00:00 AM Scheduled Provider:Sabino Cooper MD Location:[facility] Appointment Type: Open Appointment Date:11/06/2024 02:30:00 PM Scheduled Provider: Location:[facility] Appointment Type:FM Medicare Wellness Subsequent Future Scheduled Tests Laboratory* U Protein/Creat Ratio 11/24/23 * U Protein/Creat Ratio 05/31/23 * HgbA1c 11/30/23 * HgbA1c 05/31/23 * Microalbumin Level Urine 11/24/23 * Microalbumin Level Urine 05/31/23 * Lipid Panel 11/08/23 Radiology* MRI Cholangiogram Pancreatography (mrcp) 03/23/24 [facility] Evaluation + Plan note Future Appointments Appointment Date:11/06/2024 02:30:00 PM Scheduled Provider: Location:[facility] Appointment Type: Medicare Wellness Subsequent Appointment Date:11/06/2024 03:30:00 PM Scheduled Provider:Sabino Cooper MD Location:[facility] Appointment Type: Open Future Scheduled Tests Laboratory* U Protein/Creat Ratio 11/24/23 * U Protein/Creat Ratio 05/31/23 * HgbA1c 11/30/23 * HgbA1c 05/31/23 * Microalbumin Level Urine 11/24/23 * Microalbumin Level Urine 05/31/23 * Lipid Panel 11/08/23 [facility] Evaluation noteNo Assessments Information Available [facility] assessment information available [facility] Work Phone: Evaluation note* Diagnosis 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 [facility] Diagnosis 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 [facility] Diagnosis Onset Date Resolution Status Viral URI with cough noneact rosa Impacted cerumen, bilateral noneactive Central sleep apnea acute DM (diabetes mellitus) acute Essential hypertension acute Obstructive sleep apnea acut e [facility] Work Phone: Evaluation note* Diagnosis 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 [facility] Diagnosis Migraine without aura and without status migrainosus, not intractable (CMS/HCC)- Primary Vertigo Dizziness and giddiness Lumbar radiculopathy Thoracic or lumbosacral neuritis or radiculitis, unspecified Neck pain Cervicalgia Degenerative disc disease, cervical Polyneuropathy Unspecified hereditary and idiopathic peripheral neuropathy documented [facility]* Diagnosis LAD (lymphadenopathy) of right cervical region- Primary documented in this encounter [facility]* Diagnosis 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 [facility] Diagnosis Oral ulcer- Primary Other and unspecified diseases of the oral soft tissues 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) documented in this encounter [facility] HealthcareEvaluation note* Diagnosis 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 Ulcer of gingiva documented in this encounter [facility] HealthcareEvaluation note* Diagnosis 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 Oral lesion Other and unspecified diseases of the oral soft tissues 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, part unspecified Oral lesion Other and unspecified diseases of the oral soft tissues 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, part unspecified documented in this encounter [facility] Work Phone: Evaluation note* Diagnosis Parotid mass- Primary Swelling, mass, or lump in head and neck [facility]orted* Type Description Date Medical History DM (diabetes mellitus) Medical History HTN (hypertension) Medical History Hypercholesteremia Medical History Vitamin D deficiency, unspecifie d Medical History CAD (coronary artery disease) Surgical History Neck Surgery Surgical History cholecystectomy Surgical History cardiac stent Surgical History prostatectomy Surgical History hernia Hospitalization History see above [facility] Other History general Narrative - Reported* Type [...] Surgical History hernia Hospitalization History see above [facility] Other Hospital Discharge instructions No data available for this section [facility] No data available for this section [facility]Reason for referral (narrative) Referred by: Anjali Ruby CNP [facility] Summary Purpose Family History No Family History Records Found Relationship Condition Age at Onset Recorded Date/T olivia father Glaucoma Unknown Unknown Not Specified Unknown History of stroke Unknown Family history of emphysema Unknown Hypertension Unknown Heart disease Unknown sister Malignant neoplasm Unknown Relationship Condition Age at Onset Recorded Date/T olivia father Glaucoma Unknown Unknown mother Unknown History of stroke Unknown Family history of emphysema Unknown Hypertension Unknown Heart disease Unknown sister Malignant neoplasm Unknown Advance Directives No Advanced Directives Records Found [...] (diabetes mellitus) Essential hypertension Obstructive sleep apnea Chief Complaint Unknown Assessments No Assessments Information Available Reason for Referral Specialty Diagnoses / Procedures Referred By Bakari rosado Referred To Contact Diagnoses Migraine without aura and without status migrainosus, not intractable (CMS/HCC) Missy Westfall PA [address] [place] [address] Referral ID Status Reason Start Date Expiration Date V isits Requested Visits Authorized [id number] Pending Review 02/16/2024 08/14/2024 1 1 Specialty Diagnoses / Procedures Referred By Bakari rosado Referred To Contact MR IMAGING Diagnoses IPMN (intraductal papillary mucinous neoplasm) Procedures MRI 3D POST PROCESSING 3D RENDERING W/INTERP&POSTPROC [place] [address] [facility] [address] [place] [address] [place] [address] Referral ID Status Reason Start Date Expiration Date Visits Requested Visits Authorized [id number] New Request Auto-Generat ed Referral 02/01/2024 03/02/2025 1 1 Specialty Diagnoses / Procedures Referred By Contac t Referred To Contact MR IMAGING Diagnoses IPMN (intraductal papillary mucinous neoplasm) Procedures MRI PANC/VARGAS WO/W IVCON MRI ABDOMEN W/O & W/[place] [address] [address] [place] [id number] Mr Imaging [id number] Referral ID Status Reason Start Date Expiration Date Visits Requested Visits Authorized [id number] New Request Auto-Generat ed Referral 02/01/2024 03/02/2025 [...] section and content) DATE CREATED AUTHOR 02/08/2020 [facility] DATE CREATED AUTHOR AUTHOR'S ORGANIZ ATION 09/30/2022 [facility] DATE CREATED AUTHOR AUTHOR'S ORGANIZ ATION 02/04/2023 [facility] DATE CREATED AUTHOR AUTHOR'S ORGANIZ ATION 03/06/2024 [facility] DATE CREATED AUTHOR AUTHOR'S ORGANIZ ATION 03/31/2024 [facility] DATE CREATED AUTHOR AUTHOR'S ORGANIZ ATION 04/01/2024 [facility] DATE CREATED AUTHOR AUTHOR'S ORGANIZ ATION 04/19/2024 [facility] DATE CREATED AUTHOR AUTHOR'S ORGANIZ ATION 04/28/2024 [facility] DATE CREATED AUTHOR AUTHOR'S ORGANIZ ATION 04/29/2024 [facility] REASON FOR VISIT (unrecogniz ed section and content) Reason Comments Consult [facility] Reason Comments Received Outside Medical Records Reason Comments Back Pain Dizziness Neck Pain Reason Comments Parotid mass Parotid mass Reason Comments MRI Appointment Apple Sorter - Other Reason Comments Parotid Mass Follow up [facility] Reason Comments Radiology [place] Reason Comments Mouth Lesions Follow up [facility] 03/27/24 Reason Comments New Patient Visit Oral cancer. Reason Comments Neck Mass Ultrasound 01/20/24. L ump right side of neck below ear. Onset about 6 wk ago Patient Care team informatio n (unrecognized section and content) Team Status: Active Member Role Status Dates Mg [place] MD Primary Care Provider Active Team Status: Inactive Member Role Status Dates Msisy Westfall PA-C Attending Provider Active Mg [place] [...] Active Anjali Ruby NP-C Attending Provider Active Button Broacher Relationship Specialty Start Date End Date Anjali Ruby CNP [address] [place] [address] Referring Family Medicine 03/03/23 Button Broacher Relationship Specialty Start Date End Date Anjali Ruby CNP [address] [place] [address] Referring Family Medicine 03/03/23 Team Status: Inactive [...] September 02, 2023 End: September 02, 2023 Button Broacher Relationship Specialty Start Date End Date Anjali Ruby CNP [address] [facility] [place] [address] Referring Family Medicine 03/03/23 Button Broacher Relationship Specialty Start Date End Date Sabino Cooper MD [address] [place] [phone] PCP - General Family Medicine 01/26/24 Clarissa Corado MD [address] [place] [address] Referring Physician Neurology 08/03/23 Button Broacher Relationship Specialty Start Date End Date Sabino Cooper MD [address] [place] [address] PCP - General Family Medicine 01/26/24 Clarissa Corado MD [address] [place] [address] Referring Physician Neurology 08/03/23 Button Broacher Relationship Specialty Start Date End Date Sabino Cooper MD [address] [place] [address] PCP - General Family Medicine 01/26/24 Clarisas Corado MD [address] [place] [address] Referring Physician Neurology 08/03/23 Button Broacher Relationship Specialty Start Date End Date Anjali Ruby CNP [address] [place] [address] Referring Family Medicine 03/03/23 Team Status: Inactive Member Role Status Dates Sabino Cooper MD Primary Care Provider Active Start: February 29, 2024 End: February 29, 2024 Luc Ham Jr, MD Attending Provider Active Start: February 29, 2024 End: February 29, 2024 Button Broacher Relationship Specialty Start Date End Date Sabino Cooper MD [address] [place] [address] PCP - General Family Medicine 01/26/24 Clarissa Corado MD [address] [place] [address] Referring Physician Neurology 08/03/23 Button Broacher Relationship Specialty Start Date End Date Sabino Cooper MD [address] [place] [address] PCP - General Family Medicine 01/26/24 Clarissa Corado MD [address] [place] [id number] Referring Physician Neurology 08/03/23 Button Broacher Relationship Specialty Start Date End Date Sabino Cooper MD [address] [place] [address] PCP - General Family Medicine 01/26/24 Clarissa Corado MD [address] [place] [address] Referring Physician Neurology 08/03/23 Button Broacher Relationship Specialty Start Date End Date Sabino Cooper MD [address] [place] [address] PCP - General Family Medicine 03/27/24 Anjali Ruby, BEER RUNNER [address] [place] [address] Referring Family Medicine 03/03/23 Luc Ham MD [address] [place] [phone] Ent - Otolaryngology 03/10/24 Button Broacher Relationship Specialty Start Date End Date Sabino Cooper MD [address] [place] [phone] PCP - General Family Medicine 01/26/24 Clarissa Corado MD [address] [place] [phone] Referring Physician Neurology 08/03/23 Goals (unrecognized section and content) Goals may be documented in a n alternate section Source Comments (unrecognize d section and content) In the event this informatio n is protected by the Federal Confidentiality of Alcohol and Drug Abuse Patient Records regulations: The Federal rules restrict any use of the information to criminally investigate or prosecute any alcohol or drug abuse patient.[facility] the event this information is protected by the Federal Confidentiality of Alcohol and Drug Abuse Patient Records regulations: The Federal rules restrict any use of the information to criminally investigate or prosecute any alcohol or drug abuse patient.[facility] the event this information is protected by the Federal Confidentiality of Alcohol and Drug Abuse Patient Records regulations: The Federal rules restrict any use of the information to criminally investigate or prosecute any alcohol or drug abuse patient.[facility] the event this information is protected by the Federal Confidentiality of Alcohol and Drug Abuse Patient Records regulations: The Federal rules restrict any use of the information to criminally investigate or prosecute any alcohol or drug abuse patient.[facility] the event this information is protected by the Federal Confidentiality of Alcohol and Drug Abuse Patient Records regulations: The Federal rules restrict any use of the information to criminally investigate or prosecute any alcohol or drug abuse patient.[facility] FOR RECORDS PERTAINING TO PATIENTS WHO [...] BE BASED ON THE PRIMARY CLINICAL RECORDS. [facility]. provides no warranty or guarantee of the accuracy or completeness of information in this document.
--- NOTE | 2024-05-09 06:52 | CA_ITS ---
Patient Name: JEREMIE GROSS MR#: [id number] : 1940 Exam Date: 05/09/2024 Ordering Doctor: STACEY PATEL ECHOCARDIOGRAM REPORT PROCEDURE: CA ECHO DOPPLER COMPLETE INDICATIONS: SCHREIBER COMPARISON: None. DESCRIPTION: COMPLETE ECHOCARDIOGRAM Real-time transthoracic echocardiography with 2D, M-mode, spectral and color flow Doppler performed. QUALITY: Technical quality was good. LEFT VENTRICLE: Normal chamber size. Borderline left ventricular hypertrophy. Global left ventricular systolic function is normal. LV EF: Estimated left ventricular ejection fraction is 55-60%. DIASTOLIC: Grade II diastolic dysfunction. ATRIAL SEPTUM: LEFT ATRIUM: Mild dilatation. RIGHT ATRIUM: Normal chamber size. RIGHT VENTRICLE: Normal chamber size. Normal right ventricular systolic function. Pacer wire present. TRICUSPID VALVE: Normal mobility and thickness. No stenosis with mild to moderate regurgitation. Mild pulmonary hypertension. RVSP 39 mmHg MITRAL VALVE: Normal mobility and thickness. No evidence of mitral valve stenosis. There is no mitral annular calcification. Mild to moderate mitral regurgitation. AORTIC VALVE: Normal trileaflet appearance. Mildly calcified aortic valve. Normal leaflet mobility. No evidence of aortic valve stenosis. No aortic regurgitation. AORTIC ROOT: Normal diameter and appearance. Mild dilatation of the ascending aorta measuring 3.7 cm. PULMONIC VALVE: Normal thickness and mobility. No stenosis. Trivial regurgitation. PERICARDIUM: No evidence of pericardial effusion. IVC: Collapses with inspirations. Mildly dilated measuring 2.3 cm. PLEURA: CONCLUSION: 1. Borderline left ventricular hypertrophy with normal systolic function. LVEF is estimated at 55 to 60%. 2. Normal right ventricular size and systolic function. 3. Mild left atrial dilatation. 4. Mild to moderate mitral and tricuspid regurgitation. 5. Mildly dilated ascending aorta. 6. Mildly elevated right-sided pressures. Adult Echocardiography Procedure Report Left Ventricle LVEDD (3.7 - 5.6 cm): 5.08 cm LVESD (2.2 - 4.0 cm): 3.51 cm LVIVS thickness (0.6 - 1.2 cm): 1.05 cm LVPW thickness (0.5 - 1.0 cm): 1.06 cm e': 0.05 m/s E - e': 13.77 LVOT Max Gradient: 2.00 mm[Hg] LVOT Area (cm2): 0.71 m/s Peak Velocity (LVOT): 0.71 m/s Mean Velocity (LVOT): 0.45 m/s LVOT Diameter 1.96 cm Left Ventricular Ejection Fraction: 55-60 % Left Atrium LA Volume Index (2D A2C): 31.34 ml/m2 Left Atrium Systolic Dimension: 4.38 cm Mitral Valve MV E to A Ratio: 0.85 Mitral Valve A-Wave Peak Velocity: 0.85 m/s Mitral Valve E-Wave Peak Velocity: 0.72 m/s Right Ventricle RV Internal Diastolic Dimension: 3.36 cm Aorta AO Root Diam: 3.61 cm Ascending Ao Diam: 3.69 cm Aortic Valve AoV Area (Peak Lambert): 1.65 cm2, 1.65 cm2 AoV Area (VTI): 1.88 cm2, 1.88 cm2 Deceleration Pierce: 1.44 m/s2 Pressure Half-Time: 696.82 ms Peak Velocity(Antegrade Flow): 1.29 m/s Peak Gradient(Antegrade Flow): 6.64 mm[Hg] Mean Velocity(Antegrade Flow): 0.84 m/s Mean Gradient(Antegrade Flow): 3.29 mm[Hg] Velocity Time Integral: 27.14 cm Tricuspid Valve Peak Velocity (Regurgitant Flow): 2.18 m/s, 2.79 m/s Pulmonic Valve Mean Gradient: 2.19 mm[Hg], 2.53 mm[Hg] Mean Velocity: 0.72 m/s, 0.77 m/s Peak Velocity: 0.98 m/s Peak Gradient: 3.87 mm[Hg], 3.81 mm[Hg] Right Atrium Right Atrium Systolic Pressure: 53.95 ml, 53.95 ml Dictated by: Bruno Hess M.D. on 05/12/2024 at 07:59 Approved by: Bruno Hess M.D. on 05/12/2024 at 08:04
== END 2024-05-09 06:46 | disposition home or self-care (01) ==
LOC: CARD 06:46
PROVIDERS: PCP Family Medicine; Visit Provider Internal Medicine Cardiovascular Disease
DX: R06.09 Other forms of dyspnea (principal)
CPT/HCPCS: 93306

== ENCOUNTER 2024-08-31 13:19 | Outpatient (OUT) | payer MEDICARE, SELFPAY ==
--- NOTE | 2024-08-31 13:45 | P.WCHP_ITS ---
Wound Care H&P: HPI History of Present Illness Narrative: Mr. Bennett is a pleasant 83-year-old gentleman with history of well-controlled diabetes and peripheral neuropathy who presents for routine toenail care. He states the nails are painful when they are elongated and pain is relieved when the nails are trimmed. He denies cramping in his calves or pain in his feet. [facility] Medical History (Updated 08/31/24 @ 13:50 by NILAY Banegas) Anemia ?D64.9 - Anemia, unspecified (ICD-10) COVID ?U07.1 - COVID-19 (ICD-10) Vitamin D deficiency ?E55.9 - Vitamin D deficiency, unspecified (ICD-10) Skin cancer ?C44.90 - Unspecified malignant neoplasm of skin, unspecified (ICD-10) NPH (normal pressure hydrocephalus) ?G91.2 - (Idiopathic) normal pressure hydrocephalus (ICD-10) Migraine ?G43.909 - Migraine, unspecified, not intractable, without status migrainosus (ICD-10) Glaucoma ?H40.9 - Unspecified glaucoma (ICD-10) Diverticulosis ?K57.90 - Diverticulosis of intestine, part unspecified, without perforation or abscess without bleeding (ICD-10) Ventricular tachycardia ?I47.20 - Ventricular tachycardia, unspecified (ICD-10) Arthritis ?M19.90 - Unspecified osteoarthritis, unspecified site (ICD-10) Cervical lymphadenopathy ?R59.0 - Localized enlarged lymph nodes (ICD-10) Neck pain ?M54.2 - Cervicalgia (ICD-10) Low back pain ?M54.50 - Low back pain, unspecified (ICD-10) Thrombosis ?I82.90 - Acute embolism and thrombosis of unspecified vein (ICD-10) Weakness ?R53.1 - Weakness (ICD-10) Hiatal hernia ?K44.9 - Diaphragmatic hernia without obstruction or gangrene (ICD-10) Acid reflux ?K21.9 - Gastro-esophageal reflux disease without esophagitis (ICD-10) Diabetes ?E11.9 - Type 2 diabetes mellitus without complications (ICD-10) Prostate cancer ?C61 - Malignant neoplasm of prostate (ICD-10) Sleep apnea ?G47.30 - Sleep apnea, unspecified (ICD-10) Irregular heart beat ?I49.9 - Cardiac arrhythmia, unspecified (ICD-10) High cholesterol ?E78.00 - Pure hypercholesterolemia, unspecified (ICD-10) Hypertension ?I10 - Essential (primary) hypertension (ICD-10) Surgical History History of lymph node biopsy ?Z98.890 - Other specified postprocedural states (ICD-10) History of implantation of artificial sphincter ?Z96.89 - Presence of other specified functional implants (ICD-10) Hx laparoscopic cholecystectomy ?Z90.49 - Acquired absence of other specified parts of digestive tract (ICD- 10) History of carpal tunnel release of both wrists ?Z98.890 - Other specified postprocedural states (ICD-10) Pacemaker ?Z95.0 - Presence of cardiac pacemaker (ICD-10) H/O angioplasty ?Z98.62 - Peripheral vascular angioplasty status (ICD-10) H/O vasectomy ?Z98.52 - Vasectomy status (ICD-10) H/O neck surgery ?Z98.890 - Other specified postprocedural states (ICD-10) History of repair of inguinal hernia ?Z98.890 - Other specified postprocedural states (ICD-10) ?Z87.19 - Personal history of other diseases of the digestive system (ICD-10) History of prostatectomy ?Z90.79 - Acquired absence of other genital organ(s) (ICD-10) History of phacoemulsification of cataract of both eyes with intraocular lens implantation ?Z98.41 - Cataract extraction status, right eye (ICD-10) ?Z98.42 - Cataract extraction status, left eye (ICD-10) ?Z96.1 - Presence of intraocular lens (ICD-10) History of cardiac radiofrequency ablation ?Z98.890 - Other specified postprocedural states (ICD-10) History of tonsillectomy ?Z90.89 - Acquired absence of other organs (ICD-10) Social History Smoking status: Former smoker Meds Home Medications and Allergies Home Medications ?Medication ?Instructions ?Recorded ?Confirmed ?Type amlodipine 5 mg tablet 5 mg PO QDAY 10/14/22 02/29/24 History clopidogrel 75 mg tablet (Plavix) 75 mg PO QDAY 10/14/22 02/29/24 History furosemide 20 mg tablet (Lasix) 40 mg PO QDAY 10/14/22 02/21/24 History irbesartan 300 mg tablet (Avapro) 300 mg PO QDAY 10/14/22 02/29/24 History isosorbide mononitrate 30 mg PO QDAY 10/14/22 02/29/24 History latanoprost 0.005 % eye drops 1 drp ophthalmic (eye) QDAY 10/14/22 02/29/24 History loperamide 2 mg capsule 2 mg PO Q2H PRN loose stool 10/14/22 02/29/24 History (Anti-Diarrheal (loperamide)) multivitamin (Daily Multi-Vitamin 1 tab PO QDAY 10/14/22 02/29/24 History tablet) omeprazole 40 mg capsule,delayed 40 mg PO QDAY 10/14/22 02/29/24 History release rosuvastatin 10 mg tablet (Crestor) 10 mg PO QDAY 10/14/22 02/29/24 History sotalol 40 mg PO BID 10/14/22 02/29/24 History tizanidine 4 mg tablet 4 mg PO BEDTIME 10/14/22 02/29/24 History TRANSDERMAL THERAPEUTICS QID PRN pain 09/15/23 History albuterol sulfate 90 mcg/actuation 2 inh inhalation Q8H PRN shortness 09/15/23 09/15/23 History aerosol inhaler of breath or wheezing famotidine 20 mg tablet 20 mg PO DAILY 09/15/23 02/29/24 History metformin 500 mg tablet,extended 500 mg PO DAILY 09/15/23 02/29/24 History release 24 hr psyllium husk 0.4 gram capsule 0.4 g PO DAILY 09/15/23 02/21/24 History (Metamucil) zonisamide 25 mg capsule 25 mg PO BID 09/15/23 02/29/24 History dorzolamide 2 % eye drops 1 drp ophthalmic (eye) TID 02/21/24 02/29/24 History Allergies Allergy/AdvReac Type Severity Reaction Status Date / Time adhesive Allergy Mild Unknown Verified 02/29/24 10:40 niacin (From Niaspan Allergy Mild itch Verified 02/29/24 10:40 Extended-Release) Exam Narrative: Exam Narrative: Derm: Mycotic toenails affecting 2 through 5 on each foot, no evidence of paronychia. No ulcerative or preulcerative lesions are noted. Skin is dry and shiny with varicosities present. Vascular: Nonpalpable PT pulses bilaterally. Dorsalis pedis pulses are 1/4 bilaterally. Capillary refill is approximately 3 seconds. Skin is cool to the touch. Trace edema bilaterally. Digital hair is absent. Varicosities are present. Musculoskeletal: no gross deformity, range of motion is supple Neuro: Protective sensation intact to 5/5 tested areas with the monofilament on each foot. Vibratory sensation is absent on the right and decreased on the left, Achilles deep tendon reflexes are absent bilaterally Assessment and Plan Assessment and Plan (1) Tinea unguium: (2) PAD (peripheral artery disease): (3) DM2 (diabetes mellitus, type 2): (4) Difficulty in walking, not elsewhere classified: (5) Gait instability: (6) Disorder of nail due to another disorder: Plan Mr. Bennett is a pleasant 83-year-old gentleman with history of type 2 diabetes that is well-managed with history of peripheral neuropathy who presents for routine nail care. Toenails 1 through 10 were sharply debrided with nail nippers without incident. He noted pain relief postprocedure. Follow-up in 3 months for routine nail care, sooner if any issues arise. Acute Procedures Podiatry Nail Debridement Class B Findings Absent posterior tibial pulse: bilateral Advanced trophic changes as evidenced by any three of the following: decreased hair growth, nail changes (thickening) and skin texture (thin or shiny) Class C Findings Claudication: No Temperature changes: Yes Edema: Yes Nail debridement paresthesia (abnormal spontaneous sensations in the feet): No Burning: No Qualifies If: Qualifiers If:: A patient qualifies for nail debridement if they have: 1 class A finding (Q7) 2 class B findings (Q8) OR 1 class B & 2 class C findings in addition to a primary condition (Q9) Nail Procedure Nail Procedure Time out: Yes Nail procedure: other (nail debridement) Number of affected nails: 10 Location (toes): left and right Method of drainage: other (nail nippers) Procedure successful: Yes Patient tolerated procedure: well Complications: other (none)
== END 2024-08-31 13:20 | disposition home or self-care (01) ==
LOC: WC 13:19
PROVIDERS: PCP Family Medicine; Visit Provider Physician Assistant
DX: B35.1 Tinea unguium (principal); I73.9 Peripheral vascular disease, unspecified; E11.8 Type 2 diabetes mellitus with unspecified complications; R26.2 Difficulty in walking, not elsewhere classified; R26.89 Other abnormalities of gait and mobility; L60.8 Other nail disorders
CPT/HCPCS: 11721

== ENCOUNTER 2024-09-20 09:21 | Outpatient (OUT) | payer MEDICARE, SELFPAY ==
--- NOTE | 2024-09-20 09:51 | PM.CN ---
Consult Note: HPI Data of Consult Patient: known to practice within the last 3 years Requesting Physician: Alexandra Trevizo NP Primary Care Provider: SABINO COOPER Consult Narrative Reason for consult: f/u Narrative: Jair Bennett a pleasant 83 year old male presents for evaluation of chronic low back and neck pain. Previously underwent right lumbar 2,3 &4,5 facet RFA providing greater than 50% improvement in pain and functional ability ongoing. Pain 2/10 increasing to 4/10 at its worst. active in HEP greater than 6 weeks without benefit. hx of cervical fusion. Pt continues to f/u with oncology for throat CA, has completed radiation and chemotherapy. pt reports his neck and low back pain have been well controlled since his last visit/ pt finds benefit to tizanidine PRN and zonegran 25mg BID without side effects cc:: CC: Alexandra Trevizo NP Review of Systems ROS Status of ROS 10 or more systems reviewed and unremarkable except as noted in history and below Musculoskeletal Reports: back pain and neck pain PFSH ON LICENSE OF [facility] Medical History (Updated 08/31/24 @ 13:50 by NILAY Banegas) Anemia ?D64.9 - Anemia, unspecified (ICD-10) COVID ?U07.1 - COVID-19 (ICD-10) Vitamin D deficiency ?E55.9 - Vitamin D deficiency, unspecified (ICD-10) Skin cancer ?C44.90 - Unspecified malignant neoplasm of skin, unspecified (ICD-10) NPH (normal pressure hydrocephalus) ?G91.2 - (Idiopathic) normal pressure hydrocephalus (ICD-10) Migraine ?G43.909 - Migraine, unspecified, not intractable, without status migrainosus (ICD-10) Glaucoma ?H40.9 - Unspecified glaucoma (ICD-10) Diverticulosis ?K57.90 - Diverticulosis of intestine, part unspecified, without perforation or abscess without bleeding (ICD-10) Ventricular tachycardia ?I47.20 - Ventricular tachycardia, unspecified (ICD-10) Arthritis ?M19.90 - Unspecified osteoarthritis, unspecified site (ICD-10) Cervical lymphadenopathy ?R59.0 - Localized enlarged lymph nodes (ICD-10) Neck pain ?M54.2 - Cervicalgia (ICD-10) Low back pain ?M54.50 - Low back pain, unspecified (ICD-10) Thrombosis ?I82.90 - Acute embolism and thrombosis of unspecified vein (ICD-10) Weakness ?R53.1 - Weakness (ICD-10) Hiatal hernia ?K44.9 - Diaphragmatic hernia without obstruction or gangrene (ICD-10) Acid reflux ?K21.9 - Gastro-esophageal reflux disease without esophagitis (ICD-10) Diabetes ?E11.9 - Type 2 diabetes mellitus without complications (ICD-10) Prostate cancer ?C61 - Malignant neoplasm of prostate (ICD-10) Sleep apnea ?G47.30 - Sleep apnea, unspecified (ICD-10) Irregular heart beat ?I49.9 - Cardiac arrhythmia, unspecified (ICD-10) High cholesterol ?E78.00 - Pure hypercholesterolemia, unspecified (ICD-10) Hypertension ?I10 - Essential (primary) hypertension (ICD-10) Surgical History History of lymph node biopsy ?Z98.890 - Other specified postprocedural states (ICD-10) History of implantation of artificial sphincter ?Z96.89 - Presence of other specified functional implants (ICD-10) Hx laparoscopic cholecystectomy ?Z90.49 - Acquired absence of other specified parts of digestive tract (ICD-10) History of carpal tunnel release of both wrists ?Z98.890 - Other specified postprocedural states (ICD-10) Pacemaker ?Z95.0 - Presence of cardiac pacemaker (ICD-10) H/O angioplasty ?Z98.62 - Peripheral vascular angioplasty status (ICD-10) H/O vasectomy ?Z98.52 - Vasectomy status (ICD-10) H/O neck surgery ?Z98.890 - Other specified postprocedural states (ICD-10) History of repair of inguinal hernia ?Z98.890 - Other specified postprocedural states (ICD-10) ?Z87.19 - Personal history of other diseases of the digestive system (ICD-10) History of prostatectomy ?Z90.79 - Acquired absence of other genital organ(s) (ICD-10) History of phacoemulsification of cataract of both eyes with intraocular lens implantation ?Z98.41 - Cataract extraction status, right eye (ICD-10) ?Z98.42 - Cataract extraction status, left eye (ICD-10) ?Z96.1 - Presence of intraocular lens (ICD-10) History of cardiac radiofrequency ablation ?Z98.890 - Other specified postprocedural states (ICD-10) History of tonsillectomy ?Z90.89 - Acquired absence of other organs (ICD-10) Social History Smoking status: Former smoker Meds Home Medications and Allergies Home Medications ?Medication ?Instructions ?Recorded ?Confirmed ?Type amlodipine 5 mg tablet 5 mg PO QDAY 10/14/22 02/29/24 History clopidogrel 75 mg tablet (Plavix) 75 mg PO QDAY 10/14/22 02/29/24 History furosemide 20 mg tablet (Lasix) 40 mg PO QDAY 10/14/22 02/21/24 History irbesartan 300 mg tablet (Avapro) 300 mg PO QDAY 10/14/22 02/29/24 History isosorbide mononitrate 30 mg PO QDAY 10/14/22 02/29/24 History latanoprost 0.005 % eye drops 1 drp ophthalmic (eye) QDAY 10/14/22 02/29/24 History loperamide 2 mg capsule 2 mg PO Q2H PRN loose stool 10/14/22 02/29/24 History (Anti-Diarrheal (loperamide)) multivitamin (Daily Multi-Vitamin 1 tab PO QDAY 10/14/22 02/29/24 History tablet) omeprazole 40 mg capsule,delayed 40 mg PO QDAY 10/14/22 02/29/24 History release rosuvastatin 10 mg tablet (Crestor) 10 mg PO QDAY 10/14/22 02/29/24 History sotalol 40 mg PO BID 10/14/22 02/29/24 History tizanidine 4 mg tablet 4 mg PO BEDTIME 10/14/22 02/29/24 History TRANSDERMAL THERAPEUTICS QID PRN pain 09/15/23 History albuterol sulfate 90 mcg/actuation 2 inh inhalation Q8H PRN shortness 09/15/23 09/15/23 History aerosol inhaler of breath or wheezing famotidine 20 mg tablet 20 mg PO DAILY 09/15/23 02/29/24 History metformin 500 mg tablet,extended 500 mg PO DAILY 09/15/23 02/29/24 History release 24 hr psyllium husk 0.4 gram capsule 0.4 g PO DAILY 09/15/23 02/21/24 History (Metamucil) zonisamide 25 mg capsule 25 mg PO BID 09/15/23 02/29/24 History dorzolamide 2 % eye drops 1 drp ophthalmic (eye) TID 02/21/24 02/29/24 History Allergies Allergy/AdvReac Type Severity Reaction Status Date / Time adhesive Allergy Mild Unknown Verified 02/29/24 10:40 niacin (From Niaspan Allergy Mild itch Verified 02/29/24 10:40 Extended-Release) Exam Constitutional Documenting provider has reviewed patient's vital signs: yes Common normals: no apparent distress, oriented x3, healthy appearing, alert and well nourished General appearance: cooperative HENMT Common normals: normocephalic, hearing grossly normal bilaterally and moist oral mucous membranes Head and scalp: normocephalic Eye Common normals: PERRL Pupil: PERRL Neck & C-Spine Common normals: full ROM General: normal visual inspection Cervical spine: cervical ROM abnormal, pain with cervical ROM and cervical spine tenderness Chest Common normals: inspection of chest normal Respiratory Common normals: normal respiratory effort, no retractions and no use of accessory muscles Back & Pelvis Lumbar spine/lower back: ROM limited, pain with ROM and straight leg raise negative bilaterally Other: positive facet loading L2-S1 negative radiculopathy sensation intact BLE Extremity Common normals: normal to inspection and full ROM Right lower extremity: hip joint Other: positive leg roll/internal rotation of left hip negative tenderness over right GTB, no pain over IT band Neuro Common normals: oriented x3, CN's II-XII intact bilaterally, moves all extremities, no focal motor deficits, no sensory deficits noted and deep tendon reflexes 2+ bilaterally Sensorium/orientation: alert Gait (neuro): antalgic Motor exam: strength 5/5 throughout and no movement abnormalities noted Psych Common normals: mental status grossly normal, thought process normal, cooperative, affect normal, speech normal and activity/motor behavior normal Speech: normal speech Thought process: normal thought process Results Additional Findings Additional findings: If on a controlled substance or opioids, I have checked an [place] report on this patient and there are no aberrancies noted in the prescribing history.??If on a controlled substance or opioid a drug screen was completed and reviewed within the last year, and if there has not been a drug screen completed we ordered one today to monitor higher risk, state monitored pain medication use. As part of providing excellent, safe, comprehensive care, the following was completed at our patient's visit: 1. A medication reconciliation and review to ensure accurate knowledge of current/active medications, including asking our patients to inform us about any [id number] medications or herbal remedies/nutritional supplements/alternative remedies. 2. A review to specifically ensure our patients have had annual screening for screening for depression, screening for tobacco use, and screening for unhealthy alcohol use. For concerning screenings had a discussion with the patient, provided patient education, and recommended follow-up with primary care provider when appropriate. If patient noted with a risk of falling, they received education on strength, gait, and balance training to prevent future risk of falling. Assessment and Plan Assessment and Plan (1) Cervical spondylosis: (2) Chronic neck pain: (3) Failed cervical fusion: (4) Lumbar spondylosis: (5) Muscle spasm: Plan continue transdermal therapeutics cream 8a TID PRN to affected areas continue current medications continue HEP as tolerated f/u 6 months, sooner if needed
== END 2024-09-20 09:22 | disposition home or self-care (01) ==
LOC: PM 09:21
PROVIDERS: PCP Family Medicine; Visit Provider Nurse Practitioner
DX: M47.812 Spondylosis without myelopathy or radiculopathy, cervical region (principal); M54.2 Cervicalgia; M47.816 Spondylosis without myelopathy or radiculopathy, lumbar region; M62.838 Other muscle spasm; M96.0 Pseudarthrosis after fusion or arthrodesis
CPT/HCPCS: G0463

== ENCOUNTER 2024-09-29 22:50 | Emergency (ER) | payer MEDICARE, SELFPAY ==
[2024-09-29 22:56] VITALS: BP 124/65; PULSE 65; TEMP 37.1; O2SAT 94; BMI 24.6
--- NOTE | 2024-09-29 23:11 | ED.GENADUL1 ---
HPI HPI - General Adult General Chief complaint: Shortness of Breath/Dyspnea Stated complaint: SHORT OF BREATH Time Seen by Provider: 09/29/24 23:06 Source: patient Mode of arrival: Wheelchair Limitations: no limitations History of Present Illness HPI narrative: recent treatment for oral CA with radiation and chemo. Seen by his physician last week and being treated for thrush. Decreased intake because of pain with swallowing. Scheduled for feeding tube. Presents complaining of sinus pressure and right ear pain. Also has productive cough. Not short of breath Related Data Home Medications ?Medication ?Instructions ?Recorded ?Confirmed amlodipine 5 mg tablet 5 mg PO QDAY 10/14/22 02/29/24 clopidogrel 75 mg tablet (Plavix) 75 mg PO QDAY 10/14/22 02/29/24 furosemide 20 mg tablet (Lasix) 40 mg PO QDAY 10/14/22 02/21/24 irbesartan 300 mg tablet (Avapro) 300 mg PO QDAY 10/14/22 02/29/24 isosorbide mononitrate 30 mg PO QDAY 10/14/22 02/29/24 latanoprost 0.005 % eye drops 1 drp ophthalmic (eye) QDAY 10/14/22 02/29/24 loperamide 2 mg capsule 2 mg PO Q2H PRN loose stool 10/14/22 02/29/24 (Anti-Diarrheal (loperamide)) multivitamin (Daily Multi-Vitamin 1 tab PO QDAY 10/14/22 02/29/24 tablet) omeprazole 40 mg capsule,delayed 40 mg PO QDAY 10/14/22 02/29/24 release rosuvastatin 10 mg tablet (Crestor) 10 mg PO QDAY 10/14/22 02/29/24 sotalol 40 mg PO BID 10/14/22 02/29/24 tizanidine 4 mg tablet 4 mg PO BEDTIME 10/14/22 02/29/24 TRANSDERMAL THERAPEUTICS QID PRN pain 09/15/23 albuterol sulfate 90 mcg/actuation 2 inh inhalation Q8H PRN shortness 09/15/23 09/15/23 aerosol inhaler of breath or wheezing famotidine 20 mg tablet 20 mg PO DAILY 09/15/23 02/29/24 metformin 500 mg tablet,extended 500 mg PO DAILY 09/15/23 02/29/24 release 24 hr psyllium husk 0.4 gram capsule 0.4 g PO DAILY 09/15/23 02/21/24 (Metamucil) zonisamide 25 mg capsule 25 mg PO BID 09/15/23 02/29/24 dorzolamide 2 % eye drops 1 drp ophthalmic (eye) TID 02/21/24 02/29/24 Allergies Allergy/AdvReac Type Severity Reaction Status Date / Time adhesive Allergy Mild Unknown Verified 09/29/24 22:56 niacin (From [place] Allergy Mild itch Verified 09/29/24 22:56 Extended-Release) Opioid HPI Opioid Management Most Recent Opioid Data: Last Pain Scale 3 08/17/23, 07:37 Review of Systems ROS Status of ROS 10 or more systems reviewed and unremarkable except as noted in history and below [facility] Medical History (Updated 09/30/24 @ 00:55 by Ac Dhillon MD) Anemia ?D64.9 - Anemia, unspecified (ICD-10) COVID ?U07.1 - COVID-19 (ICD-10) Vitamin D deficiency ?E55.9 - Vitamin D deficiency, unspecified (ICD-10) Skin cancer ?C44.90 - Unspecified malignant neoplasm of skin, unspecified (ICD-10) NPH (normal pressure hydrocephalus) ?G91.2 - (Idiopathic) normal pressure hydrocephalus (ICD-10) Migraine ?G43.909 - Migraine, unspecified, not intractable, without status migrainosus (ICD-10) Glaucoma ?H40.9 - Unspecified glaucoma (ICD-10) Diverticulosis ?K57.90 - Diverticulosis of intestine, part unspecified, without perforation or abscess without bleeding (ICD-10) Ventricular tachycardia ?I47.20 - Ventricular tachycardia, unspecified (ICD-10) Arthritis ?M19.90 - Unspecified osteoarthritis, unspecified site (ICD-10) Cervical lymphadenopathy ?R59.0 - Localized enlarged lymph nodes (ICD-10) Neck pain ?M54.2 - Cervicalgia (ICD-10) Low back pain ?M54.50 - Low back pain, unspecified (ICD-10) Thrombosis ?I82.90 - Acute embolism and thrombosis of unspecified vein (ICD-10) Weakness ?R53.1 - Weakness (ICD-10) Hiatal hernia ?K44.9 - Diaphragmatic hernia without obstruction or gangrene (ICD-10) Acid reflux ?K21.9 - Gastro-esophageal reflux disease without esophagitis (ICD-10) Diabetes ?E11.9 - Type 2 diabetes mellitus without complications (ICD-10) Prostate cancer ?C61 - Malignant neoplasm of prostate (ICD-10) Sleep apnea ?G47.30 - Sleep apnea, unspecified (ICD-10) Irregular heart beat ?I49.9 - Cardiac arrhythmia, unspecified (ICD-10) High cholesterol ?E78.00 - Pure hypercholesterolemia, unspecified (ICD-10) Hypertension ?I10 - Essential (primary) hypertension (ICD-10) Surgical History History of lymph node biopsy ?Z98.890 - Other specified postprocedural states (ICD-10) History of implantation of artificial sphincter ?Z96.89 - Presence of other specified functional implants (ICD-10) Hx laparoscopic cholecystectomy ?Z90.49 - Acquired absence of other specified parts of digestive tract (ICD-10) History of carpal tunnel release of both wrists ?Z98.890 - Other specified postprocedural states (ICD-10) Pacemaker ?Z95.0 - Presence of cardiac pacemaker (ICD-10) H/O angioplasty ?Z98.62 - Peripheral vascular angioplasty status (ICD-10) H/O vasectomy ?Z98.52 - Vasectomy status (ICD-10) H/O neck surgery ?Z98.890 - Other specified postprocedural states (ICD-10) History of repair of inguinal hernia ?Z98.890 - Other specified postprocedural states (ICD-10) ?Z87.19 - Personal history of other diseases of the digestive system (ICD-10) History of prostatectomy ?Z90.79 - Acquired absence of other genital organ(s) (ICD-10) History of phacoemulsification of cataract of both eyes with intraocular lens implantation ?Z98.41 - Cataract extraction status, right eye (ICD-10) ?Z98.42 - Cataract extraction status, left eye (ICD-10) ?Z96.1 - Presence of intraocular lens (ICD-10) History of cardiac radiofrequency ablation ?Z98.890 - Other specified postprocedural states (ICD-10) History of tonsillectomy ?Z90.89 - Acquired absence of other organs (ICD-10) Social History Smoking status: Former smoker Little interest or pleasure in doing things: not at all Feeling down, depressed, or hopeless: not at all Exam Constitutional Vital Signs, click to edit/add: Last Vital Signs Temp 98.7 F 09/29/24 22:56 Pulse 65 09/29/24 22:56 Resp 19 09/29/24 22:56 BP 124/65 09/29/24 22:56 Pulse Ox 95 09/29/24 23:15 O2 Del Method Room Air 09/29/24 23:15 Common normals: no apparent distress, average body habitus, oriented x3, no limitations, healthy appearing and alert HENMT Common normals: normocephalic Other: sinuses nontender. TMs clear. Few thrush lesions on his tongue Eye Common normals: PERRL, EOMs intact bilaterally and conjunctivae normal Respiratory Common normals: normal respiratory effort, no retractions, no use of accessory muscles and clear to auscultation bilaterally Cardio Common normals: regular rate, regular rhythm, S1 normal heart sound and S2 normal heart sound GI Common normals: Normal to inspection, nondistended, normoactive bowel sounds present and soft to palpation Extremity Common normals: normal to inspection and full ROM Neuro Common normals: oriented x3, CN's II-XII intact bilaterally, moves all extremities and no focal motor deficits Psych Appearance: grossly normal Course Vital Signs Vital signs: Vital Signs Temperature 98.7 F 09/29/24 22:56 Pulse Rate 65 09/29/24 22:56 Respiratory Rate 19 09/29/24 22:56 Blood Pressure 124/65 09/29/24 22:56 Pulse Oximetry 94 L 09/29/24 22:56 Oxygen Delivery Method Room Air 09/29/24 22:56 Temperature 98.7 F 09/29/24 22:56 Pulse Rate 65 09/29/24 22:56 Respiratory Rate 19 09/29/24 22:56 Blood Pressure 124/65 09/29/24 22:56 Pulse Oximetry 95 09/29/24 23:15 Oxygen Delivery Method Room Air 09/29/24 23:15 Medical Decision Making MDM Narrative Medical decision making narrative: patient recently treated for oral CA with radiation therapy and chemo therapy. Presents complaining of sinus pressure and sensation of pressure right ear as well as a cough. No short of breath. chest clear. oral cavity with evidence of thrush for which he is being treated. Sinus exam and TMs normal. CT facial bones neg and cxray without acute findings. Patient informed of the lack of findings. Symptoms may be related to his recent radiation treatment. Discharged to follow up with his doctor Discharge Plan Discharge Chief Complaint: Shortness of Breath/Dyspnea Clinical Impression: Cough Patient Disposition: Home, Self-Care Prescriptions / Home Meds: No Action metformin 500 mg tablet extended release 24 hr 500 mg PO DAILY famotidine 20 mg tablet 20 mg PO DAILY zonisamide 25 mg capsule 25 mg PO BID albuterol sulfate 90 mcg/actuation HFA aerosol inhaler 2 inh inhalation Q8H PRN (Reason: shortness of breath or wheezing) psyllium husk [Metamucil] 0.4 gram capsule 0.4 g PO DAILY TRANSDERMAL THERAPEUTICS QID PRN (Reason: pain) rosuvastatin [Crestor] 10 mg tablet 10 mg PO QDAY furosemide [Lasix] 20 mg tablet 40 mg PO QDAY irbesartan [Avapro] 300 mg tablet 300 mg PO QDAY isosorbide mononitrate 30 mg PO QDAY latanoprost 0.005 % drops 1 drp ophthalmic (eye) QDAY loperamide [Anti-Diarrheal (loperamide)] 2 mg capsule 2 mg PO Q2H PRN (Reason: loose stool) Rx Instructions: until patient has gone 12 hours without a bowel movement multivitamin [Daily Multi-Vitamin] Tablet 1 tab PO QDAY clopidogrel [Plavix] 75 mg tablet 75 mg PO QDAY amlodipine 5 mg tablet 5 mg PO QDAY omeprazole 40 mg capsule,delayed release(DR/EC) 40 mg PO QDAY sotalol 40 mg PO BID Patient Comments: 1/2 DOSE tizanidine 4 mg tablet 4 mg PO BEDTIME dorzolamide 2 % drops 1 drp ophthalmic (eye) TID Rx Instructions: OU Print Language: Faroese Instructions: Acute Cough (ED) Additional Instructions: follow up with your doctor next week Referrals: SABINO COOPER [Primary Care Provider, Family Practice] - 1 week
--- OUTSIDE RECORDS SUMMARY | 2024-09-29 23:12 | XMS_ITS | CCD ---
Author Organization [facility] Care Team Providers Care It Compliance Analyst Name Role Phone ELTAHAWY, EHAB A Admitting Unavailable ELTAHAWY, EHAB A Attending Unavailable DEMETRIUS COOPER Referring Unavailable DEMETRIUS COOPER Primary Care Unavailable Param Cosme Attending Provider Demetrius Cooper Primary Care Provider Param Cosme Attending Provider [phone] Demetrius Cooper Primary Care Provider Leti Garcia Unavailable MG LONDON Primary Care Physician [phone] KAT Westfall Attending Provider [phone] MD Mg London Primary Care Provider [phone] KAT Westfall Attending Provider [phone] MD Mg [place] Primary Care Provider [phone] MD Erwin Salazar Attending Provider Erwin Salazar Unavailable MARCE Hardy Attending Provider [phone] KAT Westfall Other Provider Demetrius Cooper Primary Care Physician [phone] Griselda Pennington Unavailable ALANNA HARDY Admitting Unavailable [...] ABDON, SONA Admitting Unavailable NADSILVIA, DR MG Omallye Primary Care Unavailable LAZO ., SONNY Consulting [...] vailable LAKSHMIPATHY ., NARENDRANATH Admitting Lisset vailable DEMETRIUS COOPER Primary Care Unavailable LAZO ., SONNY [...] NADERER, DR MG Omalley Primary Care Unavailable [place], DR ERWIN Bell Consulting Unavailable ELTAHAWY, DR [...] Unavailable DAISHA Brunson Gisele Attending Provider MD Demetrius Cooper Primary Care Provider Boy Gisele Unavailable MD Erwin Salazar Attending Provider MD Demetrius Cooper Primary Care Provider MD Inez Henderson Attending Provider Esme Brunson NP Gisele Attending Provider FABIO Ruby Attending Provider Flori GARZA, [facility] Unavailable MD Demetrius Cooper Primary Care Provider DAISHA Brunson Gisele Attending Provider Clarissa Corado MD Unavailable Demetrius Cooper MD Primary Care Provider Flori GARZA, [facility] A. Unavailable MD Demetrius Cooper Primary Care Provider MD Luc Ham Jr Attending Provider Luc Guo MD Unavailable Demetrius Cooper MD Primary Care Provider LUC HAM Referring Unavaila ble DEMETRIUS COOPER E Primary Care Unavailable VAISHALI PRINGLE Attending Unavailable Unavailable Primary Care Provider UnavailDemetrius Davila MD Primary Care Provider Demetrius Cooper MD Primary Care Provider Talib Faustin MD Attending Provider Mary Ly MD Referring Provider Demetrius Cooper MD Primary Care Provider [phone] Mary Ly MD Referring Provider Dennis Gray MD Attending Provider Matteo Melo MD Attending Provider Demetrius Cooper MD Primary Care Provider Debora Wild APRN Attending Provider Mary Ly MD Referring Provider [phone] Dennis Gray MD Attending Provider Mary Ly MD Referring Provider Talib Faustin MD Attending Provider Demetrius Cooper Admitting Unavailable Demetrius Cooper Attending Unavailable Demetrius Cooper Admitting Unavailable Demetrius Cooper Attending Unavailable Demetrius Cooper Attending Unavailable aTlib Faustin Attending Unavailabl e Talib Faustin Admitting Unavailalyssia e Mary Ly Referring Unavailable Demetrius Cooper Primary Care Unavailable Talib Faustin Admitting Unavailabl e Eddie-Talib Hargrove Attending Unavailabl e Demetrius Cooper E Primary Care Unavailable Matteo Melo Admitting Unavailable Matteo Melo Attending Unavailable Luc Ham Jr Admitting Unavailable Luc Ham Jr Attending Unavailable Demetrius Cooper Primary Care Unavailable Demetrius Cooper Primary Care Unavailable Debora Wild Attending Unavailable Debora Wild Admitting Unavailable Demetrius Cooper E Primary Care Unavailable Debora Wild Attending Unavailable Debora Wild Admitting Unavailable Debora Wild Admitting Unavailable Debora Wild Attending Unavailable Demetrius Cooper E Primary Care Unavailable Demetrius Cooper E Primary Care Unavailable Matteo Melo Admitting Unavailable Matteo Melo Attending Unavailable Demetrius Cooper MD Primary Care Provider Matteo Melo MD Attending Provider [phone] Debora Wild APRN Attending Provider Dennis Gray MD Attending Provider Maru Ma DO Attending Provider Mary Ly MD Referring Provider Talib Faustin MD Attending Provider Dennis Gray MD Attending Provider Pepito Galicia DO Attending Provider Dennis Gray MD Attending Provider Dennis Gray MD Attending Provider Mary Ly MD Referring Provider Dennis Gray MD Attending Provider Mary Ly MD Referring Provider Talib Faustin MD Attending Provider Louie Marrero DO Emergency Provider Jaiden Nance MD Admit Provider Jaiden Nance MD Attending Provider Yash Thomas MD Other Provider Zeke Brennan MD Attending Provider MD Demetrius Cooper Attending Unavailable MD Demetrius Cooper Attending Unavailable MD Demetrius Cooper Attending Unavailable MD Demetrius Cooper Attending Unavailable MD Demetrius Cooper Attending Unavailable MD Demetrius Cooper Attending Unavailable MD Demetrius Cooper Attending Unavailable Beatriz, Inez Taleddie Admitting Unavaila ble Beatriz, Wiley Talal Attending Unavaila ble Beatriz, Wiley Talal Referring Unavaila MD Demetrius Arzola Admitting Unavailable MD Demetrius Cooper Attending Unavailable Flori, Anjali A Admitting Unavailable Flori, Anjali A Attending Unavailable Lilyminclive, Inez Talal Attending Unavaila ble Beatriz, Inez Talal Attending Unavaila ble Flori, Anjali A Attending Unavailable MD Demetrius Cooper Attending Unavailable JORGE STACEY Referring Unavailable JORGE, STACEY Referring Unavailable BOY BUITRAGO Attending Unavailable JORGE, STACEY Referring Unavailable JORGE, STACEY Attending Unavailable JORGE, STACEY Referring Unavailable JORGE, STACEY Referring Unavailable JORGE, STACEY Admitting Unavailable STACEY PATEL Attending Unavailable JORGE, STACEY Referring Unavailable Demetrius Cooper MD Primary Care Provider [phone] Mary Ly MD Referring Provider [phone] Talib Faustin MD Attending Provider [phone] Maru Hayes MD Emergency Provider Demetrius Cooper Attending Unavailable MD Talib Faustin Attending Unavail able MD Talib Faustin Admitting Unavail able Demetrius Cooper Attending Unavailable Demetrius Cooper Admitting Unavailable Demetrius Cooper Admitting Unavailable Yajaira Roque Attending Unavailable Demetrius Cooper Attending Unavailable MARY LY Attending Unavailable MARY LY Referring Unavailable DEMETRIUS COOPER Primary [facility] Unavailable MARY LY Admitting Unavailable MARY LY Attending Unavailable DEMETRIUS COOPER Primary Care Unavailable MARY LY Admitting Unavailable MARY LY Attending Unavailable DEMETRIUS COOPER Primary Care Unavailable MARY LY Referring Unavailable ROSS DEMETRIUS JACKELYN Primary Care Unavailable MARY LY Attending Unavailable ROSS DEMETRIUS JACKELYN Primary Care Unavailable MARY LY Referring Unavailable ROSS, DEMETRIUS JACKELYN Primary Care Unavailable LYMARY MELVIN Attending Unavailable ROSS, DEMETRIUS JACKELYN Primary Care Unavailable Clarissa Corado MD Unavailable Unavailable Ross, Demetrius E Primary Care Unavailable Dennis Gray Attending Unavailable Dennis Gray R Admitting Unavailable Ross, Demetrius E Primary Care Unavailable Maru Ma Attending Unavailable Francesca Maru Admitting Unavailable Ross, Demetrius E Primary Care Unavailable Pepito Galicia Attending Unavailable Pepito Galicia Admitting Unavailable Ross, Demetrius E Primary Care Unavailable Debora Wild Admitting Unavailable Debora Wild Attending Unavailable Ross, Demetrius E Primary Care Unavailable Matteo Melo Attending Unavailable Kameron Matteo Admitting Unavailable Ross, Demetrius E Primary Care Unavailable Maru Hayes Admitting Unavailable Maru Hayes Attending Unavailable Ross, Demetrius E Primary Care Unavailable Jaiden Nance Admitting Unavailable Zeke Brennan Attending Unavailable Yash Thomas Unavailable Debora Wild Admitting Unavailable Debora Wild Attending Unavailable Ross, Demetrius E Primary Care Unavailable Ross, Demetrius E Primary Care Unavailable Debora Wild Attending Unavailable Debora Wild Admitting Unavailable Ross, Demetrius E Primary Care Unavailable Al-Marethan, Mhd Yaser Admitting Unavailabl e Mary Ly Referring Unavailable Al-Marrawi, Mhd Yaser Attending Unavailabl e VEENA ADKINS Attending Unavailable TIMMIS, LUC H Attending Unavailable MELO Ray, MATTEO Attending Unavailable TIMMIS, LUC H Attending Unavailable ALLISON, DEMETRIUS E Referring Unavailable ISABEL ROMANO Attending Unavailable MELO V, MATTEO Attending Unavailable JACKSON NORLEENA Referring Unavailable TIMMIS, LUC H Referring Unavailable MISSY WESTFALL Attending Unavailable MISSY WESTFALL Attending Unavailable TIMMIS, LUC H Attending Unavailable MANS, LUC H Attending Unavailable MD Demetrius Cooper. Attending Unavailable MD Demetrius Cooper. Attending Unavailable Ross, MD Demetrius E. Attending Unavailable Unavailable Unavailable Unavailable Allergies Allergy Classification Reported Allergen(s) Allergy Type Date of Onset Reaction(s) Facility (3 sources) Desonide Drug Allergy 0 [facility] (1 source) Niacin Drug Allergy 0 [facility] Repository (20 sources) Adhesive agent; Translations: [adhesive] Drug allergy [address] [facility] (20 sources) Niacin; Translations: [niacin] Drug Allergy 9 hives, Itching (finding), Itching, Unknown [facility] [place] (20 sources) Adhesive bandage; Translations: [Adhesive Bandage] Allergy to substance Eruption of skin (disorder) [facility] [place] (5 sources) Niacin Drug Allergy [facility] [employer] Other (2 sources) Niaspan Starter Pack Drug allergy (disorder) 8 [facility] Repository (14 sources) Adhesive Tape-Silicones; Translations: [ADHESIVE TAPE-SILICONES] Drug Allergy 9 Rash [facility] (20 sources) Niacin Drug Allergy 9 Itching, Unknown [facility] (20 sources) Wound Dressing Adhesive Drug Allergy 3 Unknown [facility] (4 sources) Niacin; Translations: [Niaspan ER] Drug Allergy [facility] Repository (2 sources) Niacin Drug Allergy 5 [facility] Repository Medications Current Medications Medication Drug Class(es) Dates Sig (Normalized) Sig (Original) acetaminophen 325 mg / butalbital 50 mg / caffeine 40 mg oral capsule (20 sources) Barbiturate, Central Nervous System Stimulant, Methylxanthine Start: 11-29-2023 take 1 capsule by mouth every four hours for headache Esgic 325 mg-50 mg-40 mg oral capsule 1 cap(s), Oral, q4hr for headache, 60 cap(s), Refill(s) 1, [id number], 160, cm, 11/29/23 10:29:00 EDT, Height/Length Dosing, 78.5, kg, 11/29/23 10:29:00 EDT, Weight Dosing Start Date: 11/29/23 Status: Ordered Quantity: 60.0 Unit: cap(s) Repeat number: 2 Start: 12-15-2022 take 1 tablet by peggy th every four hours as needed otvnfidpmt-vxwaknunilpqx-qopp 50-325-40 mg tablet Take 1 tablet by mouth every 4 hours if needed. 12/15/2022 Active Start: 12-15-2022 APAP/butalbita l/caffeine 325 mg-50 mg-40 mg Tab Refill(s) 0, Headache Start Date: 12/15/22 Status: Ordered Comment on above: Take 1 tablet by peggy th every 4 hours as needed. Albuterol (Eqv-ProAir HFA) 90 mcg/inh inhalation aerosol (16 sources) Start: 11-09-2022 Albuterol (Eqv-ProAir HFA) 90 mcg/inh inhalation aerosol See Instructions, 17 gm, Refill(s) 6, USE 2 INHALATIONS BY MOUTH EVERY 6 HOURS, [facility]), 163, cm, 11/04/22 15:03:00 EDT, Height/Length Dosing, 76, kg, 11/04/22 15:03:00 EDT, Weight Dosing Start Date: 11/09/22 Status: Ordered Quantity: 17.0 Unit: g Repeat number: 1 Start: 11-09-2022 Albuterol (Eqv -ProAir HFA) 90 mcg/inh inhalation aerosol See Instructions, 17 gm, Refill(s) 6, USE 2 INHALATIONS BY MOUTH EVERY 6 HOURS, [facility] ([facility]), 163, cm, 11/04/22 15:03:00 EDT, Height/Length Dosing, 76, kg, 11/04/22 15:03:00 EDT, Weight Dosing Start Date: 11/09/22 Status: Ordered {1 (Ascorbic Acid 7540 MG / POLYETHYLENE GLYCOL 3350 51623 MG / Potassium Chloride 1200 MG / Sodium Ascorbate 68544 MG / Sodium Chloride 3200 MG Powder for Oral Solution) / 1 (POLYETHYLENE GLYCOL 3350 031326 MG / Potassium Chloride 1000 MG / Sodium Chlori (5 sources) Osmotic Laxative, Vitamin C Start: 12-15-2022 Plenvu oral powder for reconstitution See Instructions, 1 EA, Refill(s) 0, Prior to colonoscopy., [id number], 163, cm, 12/15/22 12:03:00 EDT, Height/Length Dosing, 73.3, kg, 12/15/22 12:03:00 EDT, Weight Dosing Start Date: 12/15/22 Status: Ordered Aspir 81 (18 sources) Start: 04-24-2020 take 81 mg by mouth once daily Aspir 81 81 mg, Oral, Daily, Refills(s) 0, Prophylaxis Start Date: 04/24/20 Status: Ordered Repeat number: 1 Start: 04-24-2020 take 81 mg by mouth [...] en (5 sources) Butalbital-Aceta minop hen Active cefpodoxime 200 mg oral tablet (3 sources) Cephalosporin Antibacterial Start: 025 take 1 tablet by mouth twice daily at mealtime Cefpodoxime 200 mg tablet Active 200 MG PO Twice daily 10 17August 21, 2024 12:00am must administer with a meal/food cephalexin 250 mg oral capsule (1 source) Cephalosporin Antibacterial Start: 022 take 1 capsule by mouth twice daily Keflex 250 mg Cap 250 mg = 1 cap(s), Oral, BID, Start 3 days before procedure, # 10 cap(s), Refills(s) 0, Pharmacy: [facility] #[id number], 167, cm, 04/27/22 8:46:00 EST, Height/Length Dosing, [...] 0, one scoop BID 90 day supply, [facility][id number], 162, cm, 08/30/23 10:00:00 EDT, Height/Length Dosing, 78.4, kg, 08/30/23 10:00:00 EDT, Weight Dosing Start Date: 09/06/23 Status: Ordered Start: 05-25-2023 End: 08-23-2023 take 4 g by mouth once daily Questran 4 g/9 g oral pow shaye 4 gm, Oral, Daily, X 90 day(s), # 90 packet(s), Refills(s) 0, Pharmacy: [facility] #[id number], 163, cm, 05/25/23 12:33:00 EST, Height/Length Dosing, 79.8, kg, 05/25/23 12:33:00 EST, Weight Dosing Start Date: 05/25/23 Stop Date: 08/23/23 Status: Ordered Dicyclomine (3 sources) Anticholinergic Dicyclomine HCl Active 72 hr fentaNYL 0.012 mg/hr transdermal system (14 sources) Opioid Agonist Start: 08-22-2024 fentaNYL 12 mcg/hr Transderm ER Film 1 patch(es), Topical, q72hr, Refill(s) 0 Start Date: 08/22/24 Status: Ordered Repeat number: 1 Start: 08-02-2024 End: 09-11-2024 Fentanyl 12 mcg/hr patch 72 hour Discontinued 1 PATCH TRANSDERML Every 72 hours 5 15 August 16, 2024 September 11, 2024 10:11am Start: 06-05-2024 End: 06-05-2024 intravenous, Once PRN Proced ure, Starting on Wed06/05/24 at 1345, For 1 dose, Intraprocedure Fish Oils (7 sources) Start: 11-04-2022 Rosalia-3 Fish O il Oral, Daily, Refills(s) 0, Prophylaxis Start Date: 11/04/22 Status: Ordered Start: 11-04-2022 Rosalia-3 Fish O il Oral, Daily, Refills(s) 0 Start Date: 11/04/22 Status: Ordered fluticasone 0.05 mg/inh Nasal [place] (1 source) Start: 04-24-2020 fluticasone 0. 05 mg/inh Nasal [place] Daily, Refill(s) 0 Start Date: 04/24/20 Status: Ordered furosemide 20 mg oral tablet (20 sources) Loop Diuretic Start: 04-24-2020 End: 07-26-2024 take 1 tablet by mouth once daily furosemide (Lasix) 20 MG tablet Indications: Peripheral venous insufficiency TAKE 1 TABLET BY MOUTH DAILY 100 tablet 2 02/18/2024 Active Furosemide Activ e Comment on above: Take 20 mg by mouth. gabapentin 600 mg oral tablet (20 sources) Anti-epileptic Agent Start: 04-24-2020 take 1 tablet by mouth three times daily gabapentin 600 mg Tab 600 mg, Oral, TID, # 270 EA, Refills(s) 0, Pharmacy: [facility], 163, cm, 02/25/23 13:29:00 EDT, Height/Length Dosing, 78.8, kg, 02/25/23 13:29:00 EDT, Weight Dosing Start Date: 03/09/23 Status: Ordered Gabapentin 300 M G Oral for 90 Active Comment on above: Take 1 tablet by peggy th. glimepiride 2 mg oral tablet (6 sources) Sulfonylurea Start: 01-19-20 glimepiride (AMARYL) 2 mg tablet Take 2 mg by mouth. 01/19/2019 Active Comment on above: Take 2 mg by mouth. Hc/Dph/Nystat/Lido/Fl a Mons[place]ve (1 source) Start: 08-23-19 take 10 mL by mouth four times daily as needed Hc/Dph/Nystat/Lido/Fla Monsalve Hc/Dph/Nystat/Lido/Fla Monsalve, Swish and swallow with 10ml by mouth four times daily as needed FOR mucositis Start Date: 08/22/24 Status: Ordered Repeat number: 1 iv contrast (will be provided with radiology test) (3 sources) Start: 02-01-20 iv contrast (will be provided with radiology test) Indications: IPMN (intraductal papillary mucinous neoplasm) MRI PANC/TRISH Inject, intravenously, once for 1 dose. No [...] administration guidelines link. 1 Each 02/01/2024 Active loperamide hydrochloride 2 mg oral tablet (20 sources) Opioid Agonist Start: 02-22-20 take 1 tablet by mouth every four hours loperamide 2 mg Tab 2 mg = 1 tab(s), Oral, q4hr, Refills(s) 0, Diarrhea Start Date: 02/21/21 Status: Ordered loperamide (Imod ium A-D) 2 MG tablet Take 2 mg by mouth as needed in the morning and 2 mg as needed at noon and 2 mg as needed in the evening and 2 mg as needed before bedtime for diarrhea. Active take 1 tablet by peggy th four times daily as needed loperamide (Imodium A-D) 2 mg tablet Ray e 1 tablet (2 mg) by mouth 4 times a day as needed. Active Loperamide A-D A ctive Comment on above: Take 2 mg by mouth. Magic Mouthwash W/Lidocaine 240 Ml Bottle 240 mL bottle (20 sources) Start: 08-23-2024 take 10 mL by mouth four times daily as needed Magic Mouthwash W/Lidocaine 240 Ml Bottle 240 mL bottle Active 10 ML PO Four times daily as needed for mucositis 240 August 23, 2024 10:14am Take 10ml by mouth, four times a day, as needed. SWISH AND SWALLOW. will call when they need refill Start: 07-20-2024 End: 07-26-2024 take 1 mL by mouth four times daily as needed Magic Mouthwash W/Lidocaine 240 Ml Bottle 240 mL bottle Discontinued ML PO Four times daily as needed 240 July 20, 2024 1:00am July 26, 2024 8:42am Start: 07-19-2024 End: 08-20-2024 take 10 mL by mouth four times daily as needed Magic Mouthwash W/Lidocaine 240 Ml Bottle 240 mL bottle Discontinued 10 ML PO Four times daily as needed for mucositis July 19, 2024 1:00am August 20, 2024 6:07pm Take 10ml by mouth, four times a day as needed. SWISH AND SWALLOW. Start: 07-19-2024 take 10 mL by mouth four times daily as needed Magic Mouthwash W/Lidocaine 240 Ml Bottle 240 mL bottle Active 10 ML PO Four times daily as needed for mucositis 240 July 19, 2024 1:00am Take 10ml by mouth, four times a day as needed. SWISH AND SWALLOW. Start: 07-06-2024 End: 08-23-2024 take 10 mL by mouth four times daily as needed Magic Mouthwash W/Lidocaine 240 Ml Bottle 240 mL bottle Discontinued 10 ML PO Four times daily as needed for mucositis 240 July 06, 2024 1:00am August 23, 2024 10:15am Take 10ml by mouth, four times a day, as needed. SWISH AND SWALLOW. Start: 07-06-2024 take 10 mL by mouth four times daily as needed Magic Mouthwash W/Lidocaine 240 Ml Bottle 240 mL bottle Active 10 ML PO Four times daily as needed for mucositis 240 July 06, 2024 1:00am Take 10ml by mouth, four times a day, as needed. SWISH AND SWALLOW. Start: 07-06-2024 take 10 mL by mouth four times daily as needed Magic Mouthwash W/Lidocaine 240 Ml Bottle 240 mL bottle Active 10 ML PO Four times daily as needed for mucositis 240 July 06, 2024 12:00am Take 10ml by mouth, four times a day, as needed. SWISH AND SWALLOW. Magnesium (5 sources) Magnesium Active 24 hr metFORMIN hydrochloride 500 mg extended release oral tablet (20 sources) Biguanide Start: 05-01-2024 take 1 tablet by mouth twice daily metFORMIN XR (Glucophage-XR) 500 MG 24 hr tablet Indications: Type 2 diabetes mellitus with hyperglycemia, without long-term current use of insulin (CMS/HCC) TAKE 1 TABLET BY MOUTH TWICE DAILY 200 tablet 2 05/01/2024 Active Start: 05-31-2023 End: 07-26-2024 take 1 tablet by mouth once daily in the morning Metformin 500 mg tablet Discontinued 500 MG PO Every morning July 20, 2024 1:00am July 26, 2024 8:43am Start: 05-18-2023 take 1 tablet by peggy th twice daily metFORMIN XR (Glucophage-XR) 500 MG 24 hr tablet Indications: Type 2 diabetes mellitus with hyperglycemia, without long-term current use of insulin (CMS/HCC) TAKE 1 TABLET BY MOUTH TWICE DAILY [...] mg oral tablet (4 sources) Corticosteroid Start: 09-22-2022 Medrol 4 MG as directed Orally as directed for 6 days September, Active [facility] Medication (6 sources) Start: 11-08-2023 [facility] Medication Transdermal Therapeutics up to four times per day: Meloxicam 0.5%/ Doxepin 3%/ Amantidine 3%/Dextromethorphan 2%/ Lidocaine 2% Start Date: 11/08/23 Status: Ordered Repeat number: 1 Start: 11-08-2023 [facility] Medicatio n Transdermal Therapeutics up to four times per day: Meloxicam 0.5%/ Doxepin 3%/ Amantidine 3%/Dextromethorphan 2%/ Lidocaine 2% Start Date: 11/08/23 Status: Ordered Multiple Vitamin (multivitamin) tablet (20 sources) take 1 tablet by peggy th once daily Multiple Vitamin (multivitamin) tablet Take 1 tablet by mouth Daily Active take 1 tablet by mouth in the mo rning Multiple Vitamin (multivitamin) tablet Take 1 tablet by mouth in the morning. Active Multivitamin (Multiple Vitamins) tablet (16 sources) Start: 06-14-2024 take 1 tablet by mouth once daily Multivitamin (Multiple Vitamins) tablet Active 1 TAB PO Daily June 14, 2024 1:00am Start: 06-14-2024 take 1 tablet by peggy th once daily Multivitamin (Multiple Vitamins) tablet Active 1 TAB PO Daily June 14, 2024 12:00am Multivitamin preparation (5 sources) Multivitamin Act rosa multivitamin tablet (6 sources) take 1 tablet by mouth once daily multivitamin tablet Take 1 tablet by mouth once daily. Active Multivitamin, Therapeutic w/ Minerals (18 sources) Start: 04-24-2020 Multivitamin, Therapeutic w/ Minerals Oral, Daily, Refill(s) 0, Prophylaxis Start Date: 04/24/20 Status: Ordered Repeat number: 1 Start: 04-24-2020 Multivitamin, Therapeutic w/ Minerals Oral, Daily, Refill(s) 0, Prophylaxis Start Date: 04/24/20 Status: Ordered nystatin 205387 unt oral tablet (6 sources) Polyene Antifungal Start: 08-17-2024 End: 09-14-2024 take 1 tablet by mouth four times daily Nystatin 500,000 unit tablet Active 128423 UNIT PO Four times daily 40 September 14, 2024 9:24am OLANZapine 2.5 mg oral tablet (7 sources) Atypical Antipsychotic Start: 08-09-2024 take 1 tablet by mouth twice daily Olanzapine 2.5 mg tablet Active 2.5 MG PO Twice daily August 09, 2024 12:00am Rosalia 3 (5 sources) Rosalia 3 Active omega-3 acid ethyl esters (chcf) 1000 mg oral capsule (20 sources) take 1 capsule by mouth in the morning omega-3 acid ethyl esters (Lovaza) 1 g capsule Take 1 g by mouth in the morning and 1 g before bedtime. Active oxyCODONE hydrochloride 1 mg/ml oral solution (20 sources) Opioid Agonist Start: 08-22-2024 take 7.5 mg by mouth every eight hours as needed for pain oxycodone 5 mg/5 mL oral solution take 7.5 mg q 8 hrs as needed for pain, Refills(s) 0 Start Date: 08/22/24 Status: Ordered Repeat number: 1 Start: 07-20-2024 oxyCODONE (Shelley icodone) 5 MG/5ML solution 07/20/2024 Active Start: 07-19-2024 End: 08-16-2024 take 5 mg by mouth every four to six hours as needed Oxycodone 5 mg/5 mL solution Discontinued 5 MG PO EVERY 4-6 HOURS as needed July 20, 2024 1:00am July 26, 2024 8:44am Start: 05-11-2024 End: 05-12-2024 take 1 tablet by mouth every six hours for pain oxyCODONE (Roxicodone) 5 mg immediate release tablet Indications: Acute postoperative pain Take 1 tablet (5 mg) by mouth every 6 hours if needed for severe pain (7 - 10) for up to 1 day. 4 tablet 05/11/2024 05/12/2024 Active pantoprazole 20 mg delayed release oral tablet (7 sources) Proton Pump Inhibitor Start: 10-31-2020 take 1 mg by mouth once daily Pantoprazole [address] Tab mg tab(s), Oral, Daily, Refills(s) 0 Start Date: 10/31/20 Status: Ordered Pantoprazole Sod ium Not-Taking/PRN Pantoprazole Sod ium Not-Taking Pantoprazole Sod ium Active polyethylene glycol 3350 01700 mg powder for oral solution (1 source) Osmotic Laxative Start: 09-20-2024 Polyethylene Glycol 3350 (Miralax) 17 gram/dose powder Active 17 GM PO Daily 68 September 20, 2024 12:00am Potassium Chloride (3 sources) Start: 08-30-2024 take 1 tablet by mouth twice daily Potassium Chloride (Rxv-Liqw-Oco M20) 20 mEq oral tablet, extended release TAKE 1 TABLET BY MOUTH TWICE DAILY Start Date: 08/30/24 Status: Ordered Repeat number: 1 Start: 08-23-2024 Potassium Chlo ride (Klor-Con M20) 20 mEq tablet,ER particles/crystals Active 20 MEQ PO Twice daily August 23, 2024 12:00am psyllium 400 mg oral capsule (20 sources) Start: 03-10-2023 take 3 capsules by mouth once daily psyllium (Metamucil 3 in 1 Daily Fiber) 400 MG capsule Take 3 capsules by mouth Daily 03/10/2023 Active Start: 03-10-2023 take 3 capsules by m outh once daily psyllium (Metamucil) 3.4 gram packet Take 3 capsules by mouth once daily. 03/10/2023 Active Start: 03-10-2023 take 3 capsules by m out once daily psyllium (Metamucil 3 in 1 Daily Fiber) 400 MG capsule Take 3 capsules by mouth Daily 03/10/2023 Active Start: 03-10-2023 Metamucil Refi lls(s) 0, Constipation Start Date: 03/10/23 Status: Ordered Start: 03-10-2023 Metamucil Refi lls(s) 0 Start Date: 03/10/23 Status: Ordered rimegepant 75 mg disintegrating oral tablet (20 sources) Start: 02-16-2024 End: 03-17-2024 Rimegepant Sulfate (Nurtec) 75 MG tablet dispersible Indications: Migraine without aura and without status migrainosus, not intractable (CMS/HCC) 1 tab PO prn migraine. 16 tablet 2 02/16/2024 Active Senna Leaves (1 source) Start: 08-22-2024 take 1 tablet by mouth twice daily as needed for constipation Senna 8.6 mg oral tablet TAKE 1 TABLET BY MOUTH TWICE DAILY NEEDED FOR CONSTIPATION Start Date: 08/22/24 Status: Ordered Repeat number: 1 Sennosides (Black-Draught Lax-Senna) 8.6 mg tablet (7 sources) Start: 08-02-2024 take 1 tablet by mouth once daily as needed for constipation Sennosides (Black-Draught Lax-Senna) 8.6 mg tablet Active 8.6 MG PO Twice daily as needed for constipation 60 August 02, 2024 12:00am Use if no bowel movement daily sennosides, chcf 8.6 mg oral tablet (1 source) Start: 05-11-2024 End: 05-13-2024 take 1 tablet by mouth once daily sennosides (Senokot) 8.6 mg tablet Indications: Acute postoperative pain Take 1 tablet (8.6 mg) by mouth once daily for 2 days. 2 tablet 05/11/2024 05/13/2024 Active silver sulfADIAZINE 10 mg/ml topical cream (5 sources) Sulfonamide Antibacterial Start: 08-22-2024 SSD 1% topical cream 1 lenin, Topical, BID, Refill(s) 0, apply to neck at affected areas Start Date: 08/22/24 Status: Ordered Repeat number: 1 Start: 08-18-2024 Silver Sulfadi azine (Silvadene) 1 % cream Active 1 APPLIC TOPICAL Twice daily August 18, 2024 12:00am Apply to open areas on radiation site, twice a day, until healed. sucralfate 100 mg/ml oral suspension (18 sources) Aluminum Complex Start: 09-14-2024 take 1 mL by mouth three times daily Sucralfate 100 mg/mL suspension Active 10 ML PO Three times daily 450 September 14, 2024 12:00am Start: 12-15-2022 sucralfate (CA RAFATE) 1 gram tablet Take 1 g by mouth. 12/15/2022 Active Start: 12-15-2022 sucralfate 1 g Tab Refills(s) 0, Control of stomach acid Start Date: 12/15/22 Status: Ordered Start: 04-27-2022 sucralfate 1 g Tab gm tab(s), Oral, QIDACHS, Refills(s) 0 Start Date: 04/27/22 Status: Ordered Sucralfate Not-T aking/PRN Sucralfate Not-T aking Sucralfate Activ e Comment on above: Take 1 g by mouth. traZODone hydrochloride 50 mg oral [...] oral capsule (20 sources) Anti-epileptic Agent Start: Zonisamide Active MG PO July 27, 2023 12:00am Start: 02-15-2023 End: 07-26-2024 take 1 capsule by mouth twice daily zonisamide (Zonegran) 25 MG capsule Indications: Cervical radiculopathy TAKE 1 CAPSULE BY MOUTH TWICE DAILY 200 capsule 2 07/03/2024 Active Completed/Discontinued Medications Medication Drug Class(es) Dates Sig (Normalized) Sig (Original) acetaminophen 250 mg / aspirin 250 mg / caffeine 65 mg oral tablet (20 sources) Platelet Aggregation Inhibitor, Nonsteroidal Anti-inflammatory Drug, Central Nervous System Stimulant, Methylxanthine Start: 06-14-2024 End: 08-20-2024 take 1 tablet by mouth every four to six hours as needed Aspirin-Acetamino phen-Caffeine (Excedrin Migraine) 250-250-65 mg tablet Discontinued 1 TAB PO EVERY 4-6 HOURS as needed July 20, 2024 1:00am July 26, 2024 8:40am acetaminophen 500 mg / diphenhydrAMINE hydrochloride 25 mg oral tablet (20 sources) Histamine-1 Receptor Antagonist Start: 06-14-2024 End: 08-20-2024 take 2 tablets by mouth once daily at bedtime as needed Diphenhydramine-A cetaminophen (Tylenol Pm Extra Strength) 25-500 mg tablet Discontinued 2 TAB PO Daily at bedtime as needed July 20, 2024 1:00am July 26, 2024 8:40am Start: 11-08-2023 take 1 tablet by peggy once daily at bedtime Tylenol PM Oral, Once a day (at bedtime), Refill(s) 0, 250mg- 2 tabs at HS Start Date: 11/08/23 Status: Ordered take 25-500 mg by mo [facility] once as needed diphenhydrAMINE-acetaminophen (Tylenol PM) 25-500 MG per tablet Take 1 tablet by mouth as needed at bedtime for sleep Active acetaminophen 325 mg / HYDROcodone bitartrate 5 mg oral tablet (17 sources) Opioid Agonist Start: 07-20-2024 End: 07-26-2024 take 1 tablet by mouth twice daily as needed Hydrocodone-Acetaminophen 5-325 mg tablet Discontinued 1 TAB PO Twice daily as needed July 20, 2024 1:00am July 26, 2024 8:41am Start: 07-17-2024 End: 08-09-2024 take 1 tablet by mouth every twelve hours as needed for pain Hydrocodone-Acetaminophen 5-325 mg table t Discontinued 1 TAB PO Every 12 hours as needed for pain 4 2 July 17, 2024 August 09, 2024 9:43am 200 actuat albuterol 0.09 mg/actuat dry powder inhaler (20 sources) beta2-Adrenergic Agonist Start: 06-14-2024 End: 07-26-2024 Albuterol Sulfate 90 mcg/actuation aerosol powdr breath activated Discontinued 1 INH INHALATION EVERY 4-6 HOURS as needed July 20, 2024 1:00am July 26, 2024 8:39am amLODIPine 5 mg oral tablet (20 sources) Dihydropyridine Calcium Channel Gabo Start: 04-24-2020 End: 07-26-2024 take 1 tablet by mouth once daily Amlodipine 5 mg tablet Discontinued 5 MG PO Daily July 20, 2024 1:00am July 26, 2024 8:39am Comment on above: Take 5 mg by mouth. aspirin 81 mg chewable tablet (20 sources) Platelet Aggregation Inhibitor, Nonsteroidal Anti-inflammatory Drug Start: 06-14-2024 End: 07-26-2024 take 1 tablet by mouth once daily Aspirin 81 mg tablet,chewable Discontinued 81 MG PO Daily July 20, 2024 1:00am July 26, 2024 8:39am take 1 tablet by mouth once penelope y aspirin 81 MG EC tablet Take 81 mg by mouth Daily Active Comment on above: Take 81 mg by mouth. clopidogrel 75 mg oral tablet (20 sources) [id number] Platelet Inhibitor Start: 04-24-20 End: 07-27-19 take 1 tablet by mouth once daily Clopidogrel (Plavix) 75 mg tablet Discontinued 75 MG PO Daily July 20, 2024 1:00am July 26, 2024 8:40am clotrimazole 10 mg oral lozenge (6 sources) Azole Antifungal Start: 08-04-19 End: 08-18-19 Clotrimazole 10 mg joyce Discontinued 10 MG MUCOUS MEM Five times daily 70 14 August 03, 2024 12:00am August 17, 2024 11:32am use for 10 days, if symptoms persist, then complete the 14 days dispensed dexamethasone 6 mg oral tablet (6 sources) Corticosteroid Start: 11-30-19 take 1 tablet by mouth every twenty-four hours dexAMETHasone 6 MG 1 tablet Orally Once a day for 5 day(s) Nov, Not-Taking/PRN Docusate (5 sources) Docusate Sodium Not-Taking/PRN Docusate Sodium Not-Taking Docusate Sodium Active dorzolamide 20 mg/ml ophthalmic solution (20 sources) Carbonic Anhydrase Inhibitor Start: 07-20-2024 End: 07-26-2024 take 1 drop(s) into the eye(s) three times daily Dorzolamide 2 % drops Discontinued 1 DROPS EYE-BOTH Three times daily July 20, 2024 1:00am July 26, 2024 8:40am Start: 07-27-2023 take 1 drop(s) into the eye(s) three times daily dorzolamide (Trusopt) 2 % ophthalmic solution Administer 1 drop into both eyes 3 times a day. 07/27/2023 Active Start: 07-27-2023 take 1 drop(s) into the eye(s) twice daily Dorzolamide 2 % drops Active 1 DROPS OPHTHALMIC Twice daily July 27, 2023 12:00am Start: 07-27-2023 Dorzolamide 2 % drops Active DROPS OPHTHALMIC July 26, 2023 11:00pm Start: 07-27-2023 Dorzolamide Ac tive DROPS OPHTHALMIC July 27, 2023 12:00am Start: 04-24-2020 take 1 drop(s) into the eye(s) twice daily dorzolamide ophthalmic 2% solution 1 drop(s), OPTH, BID, Refill(s) 0, each eye Start Date: 04/24/20 Status: Ordered Repeat number: 1 Start: 04-24-2020 take 1 drop(s) into the [...] HCl 2 % Ophthalmic for 90 Active doxycycline monohydrate 100 mg oral capsule (19 sources) Tetracycline-class Drug Start: 07-12-2024 End: 08-20-2024 take 1 capsule by mouth twice daily Doxycycline Monohydrate 100 mg capsule Discontinued 100 MG PO Twice daily July 20, 2024 1:00am July 26, 2024 8:40am famotidine 20 mg oral tablet (20 sources) Histamine-2 Receptor Antagonist Start: 07-27-2023 End: 07-26-2024 take 1 tablet by mouth once daily Famotidine 20 mg tablet Discontinued 20 MG PO Daily July 20, 2024 1:00am July 26, 2024 8:41am fluticasone propionate 0.05 mg/actuat metered dose nasal spray (20 sources) Corticosteroid Start: 01-18-2024 fluticasone Nasal 0.05 mg/inh [place] See Instructions, 16 gm, Refill(s) 0, USE 1 SPRAY IN BOTH NOSTRILS TWICE DAILY, [facility], 160, cm, 01/10/24 9:43:00 EDT, Height/Length Dosing, 77.8, kg, 01/10/24 9:43:00 EDT, Weight Dosing Start Date: 01/18/24 Status: Ordered Quantity: 16.0 Unit: g Repeat number: 1 Start: 08-24-2022 End: 07-26-2024 take 1 spray(s) nasal route once daily Fluticasone Propionate 50 mcg/actuation spray,suspension Discontinued 2 SPRAY INTRANASAL Daily July 20, 2024 1:00am July 26, 2024 8:41am administer into each nostril Start: 08-24-2022 fluticasone (F LONASE) 50 mcg/actuation nasal spray 1 [place]. 08/24/2022 Active Start: 08-24-2022 take 1 spray(s) nasa l route twice daily Flonase 0.05 mg/inh [place] 1 spray(s), Nasal, BID, 16 gram, Refill(s) 0, each nostril, [facility] ([facility] ), 167.6, cm, 08/24/22 8:10:00 EDT, Height/Length Dosing, 83.4, kg, 08/24/22 8:10:00 EDT, Weight Dosing Start Date: 08/24/22 Status: Ordered Start: 08-23-2022 Start: 04-24-2020 take 50 ug by inhala tion twice daily fluticasone propionate 50 mcg, Inhalation, BID, Refills(s) 0 Start Date: 04/24/20 Status: Ordered take 1 spray(s) nasa l route once daily fluticasone (Flonase) 50 MCG/ACT nasal spray Administer 1 spray into each nostril Daily Shake gently. Before first use, prime pump. After use, clean tip and replace cap. Active take 1 spray(s) nasa l route in the morning fluticasone (Flonase) 50 MCG/ACT nasal spray Administer 1 spray into each nostril in the morning. Shake gently. Before first use, prime pump. After use, clean tip and replace cap.. Active Fluticasone Prop ionate 50 MCG/ACT Nasal for 30 Active Comment on above: 1 [place]. irbesartan 300 mg oral tablet (20 sources) Angiotensin 2 Receptor Gabo Start: 0 End: 5 take 1 tablet by mouth once daily in the morning Irbesartan 300 mg tablet Discontinued 300 MG PO Every morning July 20, 2024 1:00am July 26, 2024 8:41am Comment on above: Take 300 mg by mouth . 24 hr isosorbide mononitrate 30 mg extended release oral tablet (20 sources) Nitrate Vasodilator Start: 4 take 1 tablet by mouth every twenty-four hours Isosorbide Mononitrate 30 mg tablet extended release 24 hr Active MG PO July 26, 2023 11:00pm Start: 04-24-2020 End: 07-26-2024 take 1 tablet by mouth once daily in the morning, then take 1 tablet by mouth every twenty-four hours Isosorbide Mononitrate 30 mg tablet extended release 24 hr Discontinued 30 MG PO Every morning July 27, 2023 12:00am July 26, 2024 8:42am Comment on above: Take 30 mg by mouth. Lactulose (7 sources) Osmotic Laxative Start: 5 End: 5 take 10 g by mouth once daily for constipation Lactulose 10 gram/15 mL solution Discontinued 10 GM PO Daily as needed for constipation 450 30 August 02, 2024 12:00am August 20, 2024 6:06pm use everyday until you have a bowel movement daily. Start: 08-02-2024 take 10 g by mouth o nce daily for constipation Lactulose 10 gram/15 mL solution Active 10 GM PO Daily as needed for constipation 450 30 August 02, 2024 12:00am use everyday until you have a bowel movement daily. latanoprost 0.05 mg/ml ophthalmic solution (20 sources) Prostaglandin Analog Start: 07-20-2024 End: 07-26-2024 take 1 drop(s) into the eye(s) once daily in the evening Latanoprost 0.005 % drops Discontinued 1 DROPS EYE-BOTH Every evening July 20, 2024 1:00am July 26, 2024 8:42am Start: 07-27-2023 take 1 drop(s) into the eye(s) once daily Latanoprost Active DROPS OPHTHALMIC Daily July 27, 2023 12:00am Start: 05-19-2023 latanoprost Op th 0.005% Janee Refill(s) 0, 10 mL, 0 Refill(s) Start Date: 05/19/23 Status: Ordered Repeat number: 1 Start: 05-19-2023 take 1 drop(s) into the eye(s) once daily in the evening Latanoprost 0.005 % drops Active 1 DROPS OPHTHALMIC Every evening July 27, 2023 12:00am Start: 05-19-2023 latanoprost (X alatan) 0.005 % ophthalmic solution Administer 1 drop into both eyes. 05/19/2023 Active Start: 04-24-2020 latanoprost op hthalmic qPM, Refill(s) 0, Dry eyes Start Date: 04/24/20 Status: Ordered Start: 04-24-2020 latanoprost op hthalmic qPM, Refill(s) 0 Start Date: 04/24/20 Status: Ordered take 1 drop(s) into the eye(s) at bedtime latanoprost (Xalatan) 0.005 % ophthalmic solution 1 drop at bedtime Active take 1 drop(s) into the eye(s) once daily at bedtime latanoprost (XALATAN) 0.005 % ophthalmic solution 1 Drop daily at bedtime. Active Latanoprost 0.00 5 % Ophthalmic for 90 Active Latanoprost 0.00 5 % Ophthalmic for 90 Active Comment on above: 1 Drop daily at bedt olivia. lidocaine 25 mg/ml / prilocaine 25 mg/ml topical cream (17 sources) Antiarrhythmic, Amide Local Anesthetic Start: 07-20-2024 End: 07-26-2024 Lidocaine-Prilocaine 2.5-2.5 % cream Discontinued 2 GM TOPICAL as needed July 20, 2024 1:00am July 26, 2024 8:42am Start: 07-13-2024 Lidocaine-Pril ocaine 2.5-2.5 % cream Active 2 GM TOPICAL Once as needed for pain July 13, 2024 2:08pm Apply 1 hour prior to accessing port. 5 ml midazolam 1 mg/ml injection (1 source) Benzodiazepine Start: 06-05-2024 End: 06-05-2024 intravenous, Once PRN Procedure, Starting on Wed06/05/24 at 1345, For 1 dose, Intraprocedure mometasone furoate 1 mg/ml topical cream (20 sources) Corticosteroid Start: 06-14-2024 End: 08-20-2024 Mometasone 0.1 % cream Discontinued 1 APPLIC TOPICAL Daily July 20, 2024 1:00am July 26, 2024 8:43am Multivitamin (One Daily Multivitamin) tablet (8 sources) Start: 07-20-2024 End: 07-26-2024 take 1 tablet by mouth once daily Multivitamin (One Daily Multivitamin) tablet Discontinued 1 TAB PO Daily July 20, 2024 1:00am July 26, 2024 8:43am Nystatin 100,000 unit/mL suspension (7 sources) Start: 08-02-2024 End: 08-20-2024 Nystatin 100,000 unit/mL suspension Discontinued [id number] UNIT PO Four times daily 224 August 02, 2024 12:00am August 20, 2024 6:07pm administer 1/2 of dose in each side of the mouth Start: 08-02-2024 Nystatin 100,0 00 unit/mL suspension Active [id number] UNIT PO Four times daily 224 August 02, 2024 12:00am administer 1/2 of dose in each side of the mouth omeprazole 40 mg delayed release oral capsule (20 sources) Proton Pump Inhibitor Start: 08-24-2022 End: 07-26-2024 take 1 capsule by mouth once daily in the morning Omeprazole 40 mg capsule,delayed release(DR/EC) Discontinued 40 MG PO Every morning July 20, 2024 1:00am July 26, 2024 8:43am Start: 04-27-2022 omeprazole Ora l, Daily, Refills(s) 0 Start Date: 04/27/22 Status: Ordered Omeprazole Activ e Comment on above: Take 40 mg by mouth. ondansetron 4 mg disintegrating oral tablet (20 sources) Serotonin-3 Receptor Antagonist Start: 07-21-19 End: 07-27-19 take 2 tablets by mouth every eight hours Ondansetron 4 mg tablet,disintegratin g Discontinued 8 MG PO Every 8 hours July 20, 2024 1:00am July 26, 2024 8:43am Start: 06-14-2024 take 1 tablet by peggy th every eight hours as needed for nausea and vomiting Ondansetron 8 mg tablet,disintegrating Active 8 MG PO Every 8 hours as needed for nausea and vomiting June 14, 2024 1:00am Prazosin (5 sources) alpha-Adrenergic Gabo Prazosi n HCl Not-Taking/PRN Prazosin HCl Not -Taking Prazosin HCl Act rosa prochlorperazine 10 mg oral tablet (20 sources) Phenothiazine Start: 06-14-2024 End: 08-09-2024 take 1 tablet by mouth every eight hours as needed Prochlorperazine Maleate (Compazine) 10 mg tablet Discontinued 10 MG PO Every 8 hours as needed July 20, 2024 1:00am July 26, 2024 8:44am Psyllium Husk (Fiber (Psyllium Husk)) 0.4 gram capsule (20 sources) Start: 07-20-2024 End: 07-26-2024 Psyllium Husk (Fiber (Psyllium Husk)) 0.4 gram capsule Discontinued 0.4 GM PO Daily July 20, 2024 1:00am July 26, 2024 8:44am Start: 06-22-2024 End: 08-20-2024 Psyllium Husk (Fiber (Psylli um Husk)) 0.4 gram capsule Discontinued 0.4 GM PO Daily June 22, 2024 1:00am August 20, 2024 6:08pm Start: 06-22-2024 Psyllium Husk (Fiber (Psyllium Husk)) 0.4 gram capsule Active 0.4 GM PO Daily June 22, 2024 1:00am Start: 06-22-2024 Psyllium Husk (Fiber (Psyllium Husk)) 0.4 gram capsule Active 0.4 GM PO Daily June 22, 2024 12:00am rosuvastatin calcium 10 mg oral tablet (20 sources) HMG-CoA Reductase Inhibitor Start: 04-24-2020 End: 07-26-2024 take 1 tablet by mouth once daily in the evening Rosuvastatin 10 mg tablet Discontinued 10 MG PO Every evening July 20, 2024 1:00am July 26, 2024 8:44am Crestor Active Comment on above: Take 10 mg by mouth. sotalol hydrochloride 80 mg oral tablet (20 sources) Antiarrhythmic Start: 07-27-2023 sotalol (Betapace) 80 mg tablet Take 1 half tablet by mouth 2 times a day. 07/27/2023 Active Start: 07-27-2023 End: 07-26-2024 Sotalol 80 mg tablet Discont inued 40 MG PO Twice daily July 20, 2024 1:00am July 26, 2024 8:44am Start: 04-24-2020 take 1 tablet by peggy th once daily Sotalol 80 mg tablet Active 80 MG PO Daily July 26, 2023 11:00pm Start: 04-24-2020 take 0.5 tablet by m outh twice daily sotalol (Betapace) 80 mg tablet Take 0.5 tablets (40 mg) by mouth 2 times a day. 07/27/2023 Active Comment on above: Take 80 mg by mouth. temazepam 15 mg oral capsule (6 sources) Benzodiazepine take 1 capsule by mouth every twenty-four hours Temazepam 15 MG 1 capsule at bedtime as needed Orally Once a day Not-Taking/PRN tiZANidine 4 mg oral capsule (20 sources) Central alpha-2 Adrenergic Agonist Start: 07-21-19 End: 07-27-19 take 1 capsule by mouth once daily in the evening as needed Tizanidine 4 mg capsule Discontinued 4 MG PO Every evening as needed July 20, 2024 1:00am July 26, 2024 8:45am Start: 02-21-2021 take 1 tablet by peggy th at bedtime tiZANidine (Zanaflex) 4 MG tablet Indications: Chronic bilateral low back pain, unspecified whether sciatica present TAKE 1/2 TO 1 TABLET BY MOUTH AT BEDTIME 90 tablet 2 01/18/2024 Active End: 02-01-2024 tiZANidine HCl (ZANAFLEX) 4 mg capsule Take 4 mg by mouth. Active tiZANidine HCl A ctive Comment on above: Take 4 mg by mouth. Problems Active Problems Problem Classification Problem Date Documented Da te Episodic/Chronic Aortic; peripheral; and visceral artery aneurysms (20 sources) Ectasia of thoracic aorta; Translations: [Thoracic aortic ectasia] Onset: 4 11-08-2023 Chronic Comment on above: added per 11/05/2023 query response. 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, unspecified] Onset: 4 04-07-2024 Chronic Cancer of prostate (20 sources) Malignant tumor of prostate; Translations: [Malignant neoplasm of prostate] Onset: 2 01-27-2024 Chronic Cancer; other and unspecified primary (1 source) History of malignant neoplasm of head and/or neck; Translations: [Personal history of malignant neoplasm of other organs and systems] 09-11-2024 Episodic Cardiac dysrhythmias (20 sources) Ventricular tachycardia; Translations: [Ventricular tachycardia] Onset: 2 07-27-2023 Chronic Complication of device; implant or graft (6 sources) 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; Translations: [Atherosclerosis of coronary artery bypass graft(s) without angina pectoris] Onset: 4 05-11-2024 Chronic Conditions associated with dizziness or vertigo (2 sources) Vertigo; Translations: [Dizziness and giddiness] 02-16-2024 Episodic Conduction disorders (20 sources) Cardiac pacemaker in situ; Translations: [Presence of cardiac pacemaker] Onset: 1 04-24-2020 Chronic Coronary atherosclerosis and other heart disease (20 sources) Coronary arteriosclerosis; Translations: [Atherosclerotic heart disease of [place] coronary artery without angina pectoris] Onset: 9 [...] Translations: [Essential hypertension] Onset: 2 04-24-2020 Chronic Fever of unknown origin (8 sources) Fever; Translations: [Fever, unspecified] 08-20-2024 Episodic Genitourinary symptoms and ill-defined conditions (1 source) Delay when starting to pass urine 08-30-2024 Episodic Glaucoma (20 sources) Glaucoma; Translations: [Unspecified glaucoma] Onset: 2 04-24-2020 Chronic Headache; including migraine (20 sources) Migraine; Translations: [Migraine, unspecified, not intractable, without status migrainosus] Onset: 2 01-27-2024 Chronic Heart valve disorders (20 sources) Aortic valve regurgitation; Translations: [Nonrheumatic aortic (valve) insufficiency] Onset: 9 01-27-2024 Chronic Immunity disorders (10 sources) Immunosuppression; Translations: [Immunodeficiency, unspecified] Onset: 5 08-20-2024 Chronic Comment on above: noted in 08/20/2024 [facility] ED Note page 5. added per OP CD[facility] policy. Joint disorders and dislocations; trauma-related (20 sources) Derangement of right knee; Translations: [Unspecified internal derangement of right knee] Onset: 4 01-27-2024 Chronic Nausea and vomiting (20 sources) Nausea; Translations: [Nausea] Onset: 5 07-12-2024 Episodic Comment on above: noted in 08/16/2024 Palliative Care Consult Note page 5. added per OP CDI policy. 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; Translations: [[facility] CURRENT USE OF ASPIRIN] Onset: 3 Episodic Other aftercare (1 source) 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 (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 of antithrombotics/antipl atelets; Translations: [[facility] ANTITHROMBOT/ANTIPLATL ETS] Onset: 3 Episodic Other aftercare (1 source) residential (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 of oral hypoglycemic drugs; Translations: [[facility]HANGER USE ORAL HYPOGLYCEMIC DX] Onset: 3 Episodic Other aftercare (12 sources) Patient encounter status; Translations: [Encounter for palliative care] 07-06-2024 Episodic Other aftercare (6 sources) Encounter for palliative care; Translations: [Encounter for palliative care] Onset: 5 07-06-2024 Episodic Other bone disease and musculoskeletal deformities (20 sources) Osteochondritis dissecans of right ankle; Translations: [Osteochondritis dissecans, right ankle and joints of right foot] Onset: 4 01-27-2024 Chronic Other circulatory disease (1 source) Raynaud's syndrome without gangrene; Translations: [RAYNAUDS SYNDROME WITHOUT GANGRENE] Onset: 2 Chronic Other ear and sense organ disorders (20 sources) Hearing loss; Translations: [Unspecified hearing loss, unspecified ear] Onset: 2 01-27-2024 Chronic Other ear and sense organ disorders (2 sources) Sensorineural hearing loss, bilateral; Translations: [Sensorineural hearing loss, bilateral] 06-23-2024 Chronic Other ear and sense organ disorders (1 source) Impacted cerumen, bilateral; Translations: [Impacted cerumen] 07-27-2023 Episodic Other ear and sense organ disorders (2 sources) Bilateral tinnitus; Translations: [Tinnitus, bilateral] 06-23-2024 Episodic Other gastrointestinal disorders (1 source) Intestinal malabsorption; 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] Onset: Chronic Other gastrointestinal disorders (20 sources) Non-infective diarrhea; 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] [...] (gaseous)] Onset: 4 Episodic Other gastrointestinal disorders (9 sources) Diarrhea 06-25-2023 Episodic Other gastrointestinal disorders (8 sources) Constipation; Translations: [Constipation, unspecified] 08-02-2024 Episodic Comment on above: Secondary to opioids , and decreased oral intake Other gastrointestinal disorders (19 sources) Constipation, unspecified; Translations: [Constipation, unspecified] Onset: 5 08-02-2024 Episodic Other gastrointestinal disorders (1 source) Therapeutic opioid induced constipation 08-23-2024 Episodic Comment on above: noted in 08/16/2024 Palliative Care Consult Note page 5. added per OP CDI policy. Other gastrointestinal disorders (1 source) Esophageal dysphagia; Translations: [Other dysphagia] 09-27-2024 Episodic Other lower respiratory disease (3 sources) Apnea, not elsewhere classified Episodic Other lower respiratory disease (1 source) Nodule of lung; Translations: [Solitary pulmonary nodule] 09-20-2024 Episodic Other nervous system disorders (20 sources) Polyneuropathy associated with another disorder; Translations: [Polyneuropathy in diseases classified elsewhere] Onset: 4 07-27-2023 Chronic Other nervous system disorders (1 source) 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 Other nervous system disorders (1 source) Other chronic pain; Translations: [OTHER CHRONIC PAIN] Onset: 2 Chronic Other nervous system disorders (20 sources) Carpal tunnel syndrome of left wrist; Translations: [Carpal tunnel syndrome, left upper limb] Onset: 4 01-27-2024 Chronic Other nervous system disorders (20 sources) Carpal tunnel syndrome of right wrist; Translations: [Carpal tunnel syndrome, right upper limb] Onset: 4 01-27-2024 Chronic Other nervous system disorders (20 sources) Neuropathy; Translations: [Polyneuropathy, unspecified] Onset: 2 01-27-2024 Chronic Other nervous system disorders (20 sources) Normal pressure hydrocephalus; Translations: [(Idiopathic) normal pressure hydrocephalus] Onset: 2 01-27-2024 Chronic Other nervous system disorders (2 sources) Polyneuropathy; Translations: [Polyneuropathy, unspecified] 02-16-2024 Chronic Other nervous system disorders (13 sources) Pain due to neoplastic disease; Translations: [Neoplasm related pain (acute) (chronic)] 07-06-2024 Chronic Comment on above: Jeremie reports incr easing severity of throat pain that is significantly interfering with oral intake. He does have some thrush on the tongue and oropharynx. He is using Magic Mouthwash and Dr. Gray has advised him to increase frequency of use. Poor response with oxycodone 10 mg 3 times daily. Denies sedation.Continue Magic Mouthwash without change F/U one week at time of radiation noted in 08/16/2024 Palliative Care Consult Note page 5. added per OP CDI policy. Other nervous system disorders (20 sources) Neoplasm related pain (acute) (chronic); Translations: [Neoplasm related pain (acute) (chronic)] Onset: 5 07-12-2024 Chronic Other nervous system disorders (17 sources) Numbness of hand 08-24-2022 Episodic Other nervous system disorders (10 sources) Acute postoperative pain; Translations: [Other acute postprocedural pain] 05-11-2024 Episodic Other nervous system disorders (1 source) Other acute postprocedural pain; Translations: [Other acute postprocedural pain] Onset: 5 Episodic Other non-traumatic joint disorders (4 sources) Other instability, right ankle; Translations: [OTHER INSTABILITY RIGHT ANKLE] Onset: 3 Episodic Other nutritional; endocrine; and metabolic disorders (1 source) Body mass index 25-29 - overweight 08-24-2024 Episodic Other screening for suspected conditions (not [...] caused by tuberculosis or sexually transmitted disease) (9 sources) Pneumonia; Translations: [Pneumonia, unspecified organism] Onset: 5 08-20-2024 Episodic Pneumonia (except that caused by tuberculosis or sexually transmitted disease) (1 source) Pneumonia (except that caused by tuberculosis or sexually transmitted disease); Translations: [PNEUMONIA D/T CORONAVIRUS DIS 2019] Onset: 3 Residual codes; unclassified (18 sources) Sleep apnea 04-24-2020 Chronic Residual codes; unclassified (20 sources) Obstructive sleep apnea syndrome; Translations: [Obstructive sleep apnea (adult) (pediatric)] Onset: 2 07-27-2023 Chronic Residual codes; unclassified (20 sources) Daytime somnolence; Translations: [Other hypersomnia] Onset: 4 07-27-2023 Chronic Residual codes; unclassified (7 sources) Obstructive sleep apnea (adult) (pediatric); Translations: [Obstructive sleep apnea (adult)(pediatric)] Chronic Residual codes; unclassified (1 source) Other hypersomnia Chronic Residual codes; unclassified (1 source) Sleep apnea, unspecified; Translations: [SLEEP APNEA UNSPECIFIED] Onset: 3 Chronic Residual codes; unclassified (20 sources) Central sleep apnea syndrome; 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] Onset: 4 09-02-2023 Chronic Residual codes; unclassified (3 sources) Primary central sleep apnea; Translations: [Unspecified sleep apnea] 09-02-2023 Chronic Residual codes; unclassified (1 source) Acquired absence of other genital organ(s); Translations: [ACQUIRED ABSENCE OTH GENITAL ORGANS] Onset: 3 Episodic Screening and history of mental health and substance abuse codes (1 source) Ex-smoker 08-24-2024 Episodic Secondary malignancies (2 sources) Secondary malignant neoplasm of neck; Translations: [Secondary malignant neoplasm of other specified sites] 03-08-2024 Chronic Secondary malignancies (3 sources) 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 and neck lymph node; Translations: [Secondary and unspecified malignant neoplasm of lymph nodes of head, face and neck] 03-29-2024 Chronic Secondary malignancies (2 sources) Secondary malignant neoplasm of lymph nodes of neck; Translations: [Secondary and unspecified malignant neoplasm of lymph nodes of head, face and neck] 05-30-2024 Chronic Comment on above: noted in 08/21/2024 [facility] [place] Summary page 2. added per OP CDI policy. Secondary malignancies (2 sources) Secondary and unspecified malignant neoplasm of lymph nodes of head, face and neck; Translations: [Secondary and unspecified malignant neoplasm of lymph nodes of head, face and neck] Onset: 5 Chronic Spondylosis; intervertebral disc disorders; other back problems (20 sources) Spondylosis without myelopathy or radiculopathy, lumbar region; Translations: [Other intervertebral disc degeneration, lumbar region] Onset: 2 Chronic Comment on above: noted in 09/15/2023 Pain Management Consult note page 5. added per OP CDI policy. Unclassified (4 sources) LOW BACK PAIN, UNSPECIFIED; Translations: [LOW BACK PAIN, UNSPECIFIED] Onset: 3 Unclassified (8 sources) Patient encounter status 02-25-2023 Unclassified (3 sources) A [facility] screening has identified you as FRAIL or AT RISK FOR FRAILTY. This puts you at a higher risk for infection, illness, falls, and other injuries. Here are four ways to help you reduce your risk of frailty: 1. IDENTIFY EARLY SIGNS OF FRAILTY Discuss contributing factors and concerns with your doctor 2. BE ACTIVE Walking and light strengthening exercises will help reduce weakness 3. EAT WELL Aim for three healthy meals a day that are high in protein 4. THINK POSITIVE Keep your mind active by being sociable and continuing to learn References: Stay Strong: Four Ways to Beat the Frailty Risk [email or web address] i-rdebnj-ruse-ways-to- sozl-brk-yte ilty-risk 08-21-2024 Unclassified (1 source) Mild pulmonary hypertension 08-24-2024 Comment on above: added per 08/23/2024 query response. Urinary tract infections (1 source) Urinary tract infectious disease 04-27-2022 Episodic Viral infection (10 sources) Disease caused by 2019-nCoV; Translations: [COVID-19] Onset: 3 Past or Other Problems Problem Classification Problem Date Documented Da te Episodic/Chronic Abdominal pain (20 sources) Lower abdominal pain; Translations: [Right flank pain] Onset: 04-03-2022 Resolved: 01-27-2024 04-25-2020 Episodic Biliary tract disease (20 sources) Gallstone; Translations: [Calculus of gallbladder without cholecystitis without obstruction] Onset: 04-03-2022 Resolved: 01-27-2024 01-27-2024 Episodic Cancer of prostate (20 sources) History of malignant neoplasm of prostate; Translations: [Personal history of malignant neoplasm of prostate] Onset: 03-10-2022 03-21-2021 Episodic Coronary atherosclerosis and other heart disease (6 sources) Stented coronary artery; Translations: [Presence of coronary angioplasty implant and graft] Onset: 05-11-2024 05-11-2024 Episodic Diseases of mouth; excluding dental (13 sources) Ulcer of mouth; Translations: [Other forms of stomatitis] Onset: 04-07-2024 03-08-2024 Episodic Gastroduodenal ulcer (except hemorrhage) (20 sources) Peptic ulcer; Translations: [Peptic ulcer, site unspecified, unspecified as acute or chronic, without hemorrhage or perforation] Onset: 04-03-2022 Resolved: 01-27-2024 10-31-2020 Chronic Genitourinary symptoms and ill-defined conditions (20 sources) Incontinence; Translations: [Incontinence without sensory awareness] Onset: 01-27-2024 Resolved: 01-27-2024 04-27-2022 Chronic Hemorrhoids (20 sources) Hemorrhoids; Translations: [Unspecified hemorrhoids] Onset: 01-27-2024 06-25-2023 Episodic Inflammatory conditions of male genital organs (20 sources) Prostatitis; Translations: [Inflammatory disease of prostate, unspecified] Onset: 04-14-2023 04-27-2022 Episodic Lymphadenitis (20 sources) Lymphadenopathy; Translations: [Cervical lymphadenopathy] Onset: 04-14-2023 02-15-2023 Episodic Mycoses (20 sources) Onychomycosis; Translations: [Tinea unguium] Onset: 01-27-2024 Resolved: 01-27-2024 01-27-2024 Episodic Nonspecific chest pain (20 sources) Chest wall pain; Translations: [Other chest pain] Onset: 04-03-2022 Resolved: 01-27-2024 02-21-2021 Episodic Other and unspecified benign neoplasm (20 sources) History of polyp of colon; Translations: [Personal history of colonic polyps] Onset: 09-17-2023 Episodic Other and unspecified benign neoplasm (20 sources) Polyp of colon; Translations: [Polyp of colon] Onset: 01-27-2024 06-25-2023 Episodic Other connective tissue disease (2 sources) [...] Onset: 04-20-2022 Episodic Other connective tissue disease (20 sources) Disorder of musculoskeletal system; Translations: [Other specified disorders of synovium, right ankle and foot] Onset: 01-27-2024 01-27-2024 Episodic Other connective tissue disease (20 sources) Pain in limb; Translations: [Pain in unspecified limb] Onset: 01-27-2024 Resolved: 01-27-2024 01-27-2024 Episodic Other diseases of veins and lymphatics (20 sources) Peripheral venous insufficiency; Translations: [Venous insufficiency (chronic) (peripheral)] Onset: 01-27-2024 01-27-2024 Episodic Other gastrointestinal disorders (4 sources) Diarrhea, unspecified; Translations: [DIARRHEA UNSPECIFIED] Onset: 03-06-2022 Episodic Other gastrointestinal disorders (20 sources) Dysphagia; Translations: [Dysphagia, unspecified] Onset: 01-12-2023 12-15-2022 Episodic Other gastrointestinal disorders (20 sources) Urgent desire for stool; Translations: [Fecal urgency] Onset: 01-12-2023 Resolved: 01-27-2024 12-15-2022 Episodic Other gastrointestinal disorders (20 sources) Irregular bowel habits; Translations: [Other specified symptoms and signs involving the digestive system and abdomen] Onset: 04-14-2023 02-25-2023 Episodic Other gastrointestinal disorders (20 sources) Abdominal bloating; Translations: [Abdominal distension (gaseous)] Onset: 01-27-2024 Resolved: 01-27-2024 06-25-2023 Episodic Other gastrointestinal disorders (20 sources) Smearing feces; Translations: [Fecal smearing] Onset: 04-03-2022 Resolved: 01-27-2024 01-27-2024 Episodic Other nervous system disorders (20 sources) Entrapment of left ulnar nerve; Translations: [Lesion of ulnar nerve, left upper limb] Onset: 01-27-2024 Resolved: 01-27-2024 01-27-2024 Chronic Other nervous system disorders (20 sources) Entrapment of right ulnar nerve; Translations: [Lesion of ulnar nerve, right upper limb] Onset: 01-27-2024 Resolved: 01-27-2024 01-27-2024 Chronic Other nervous system disorders (1 source) Unspecified disturbances of skin sensation; Translations: [UNS DISTURBANCES OF SKIN SENSATION] Onset: 04-20-2022 Episodic Other nervous system disorders (20 sources) Paresthesia of skin; Translations: [Disturbance of skin sensation] Onset: 01-27-2024 01-27-2024 Episodic Other nervous system disorders (20 sources) Unsteady when standing; Translations: [Unsteadiness on feet] Onset: 01-27-2024 Resolved: 01-27-2024 01-27-2024 Episodic Other non-epithelial cancer of skin (20 sources) Malignant neoplasm of skin; Translations: [Unspecified malignant neoplasm of skin, unspecified] Onset: 04-03-2022 01-27-2024 Episodic Other non-traumatic joint disorders (20 sources) Arthralgia of the ankle and/or foot; Translations: [Pain in right ankle and joints of right foot] Onset: 01-27-2024 01-27-2024 Episodic Other nutritional; endocrine; and metabolic disorders (20 sources) Body mass index 30+ - obesity; Translations: [Obesity, unspecified] Onset: 04-03-2022 Resolved: 01-27-2024 02-21-2021 Chronic Other nutritional; endocrine; and metabolic disorders (20 sources) Overweight in adulthood with body mass index of 25 or more but less than 30; Translations: [Body mass index (BMI) 29.0-29.9, adult] Onset: 01-27-2024 11-08-2023 Episodic Other skin disorders (4 sources) Nail dystrophy; Translations: [NAIL DYSTROPHY] Onset: 06-11-2022 Episodic Other skin disorders (1 source) Other nail disorders; Translations: [OTHER NAIL DISORDERS] Onset: 06-16-2022 Episodic Other skin disorders (20 sources) Mass of neck; Translations: [Localized swelling, mass and lump, neck] Onset: 04-14-2023 02-15-2023 Episodic Otitis media and related conditions (20 sources) Otitis media; Translations: [Otitis media, unspecified, unspecified ear] Onset: 04-14-2023 Resolved: 01-27-2024 02-15-2023 Episodic Pancreatic disorders (not diabetes) (20 sources) Cyst of pancreas; Translations: [Cyst of pancreas] Onset: 01-12-2023 Episodic Residual codes; unclassified (20 sources) FH: Stomach cancer; Translations: [Family history of malignant neoplasm of digestive organs] Onset: 04-14-2023 12-15-2022 Episodic Residual codes; unclassified (20 sources) Insomnia; Translations: [Insomnia, unspecified] Onset: 04-03-2022 01-27-2024 Episodic Residual codes; unclassified (20 sources) Edema of lower extremity; Translations: [Localized edema] Onset: 04-26-2019 01-27-2024 Episodic Residual codes; unclassified (10 sources) Difficult venous access; Translations: [Other specified health status] Onset: 06-20-2024 06-20-2024 Episodic Skin and subcutaneous tissue infections (20 sources) Cellulitis of left toe; Translations: [Cellulitis and abscess of toe, unspecified] Onset: 01-27-2024 Resolved: 01-27-2024 01-27-2024 Episodic Spondylosis; intervertebral disc disorders; other back problems (20 sources) Muscle spasm of back; Translations: [Radiculopathy, cervical region] Onset: 11-13-2021 Episodic Substance-related disorders (20 sources) Hypnotic dependence; Translations: [Sedative, hypnotic or anxiolytic dependence, uncomplicated] Onset: 01-27-2024 Resolved: 01-27-2024 Chronic Unclassified (1 source) Paroxysmal ventricular tachycardia I47.29 Unclassified (1 source) Acute cough R05.1 Unclassified (1 source) LOW BACK PAIN, UNSPECIFIED; Translations: [LOW BACK PAIN, UNSPECIFIED] Onset: 08-25-2022 Unclassified (6 sources) Onset: 04-07-2024 Resolved: 09-11-2024 04-07-2024 Viral infection (20 sources) Disease caused by 2019-nCoV; Translations: [COVID-19] Onset: 11-10-2022 Resolved: 01-27-2024 01-27-2024 Episodic Results Test Name Value Interpretation Reference Range Facility Family Medicine Office/Clini c Noteon 09-28-2024 Family Medicine Office/Clinic Note Family Medicine Office/Clinic Note Chief Complaint ER follow up Abdominal pain and difficulty swallowing HPI Staff 2 week follow up to RUQ pain. Liver US ordered @ [facility]. Instructed to get done if pain worsens. Has since then gone to [facility] ER CC: abdominal pain & constipation States olanzapine has been helping him sleep at night. History of Present Illness - The patient is an 83-year-old male presenting with abdominal pain and dysphagia. - Abdominal discomfort linked to significant stool burden; chronic constipation indicated. - CT scan highlighted unchanged 5 mm noncalcified nodule; not linked to current pain. - Uncomplicated colonic issues noted; stools treated with MiraLax and Senna. - Observed difficulty swallowing due to throat pain, leading to reduced food intake. - Nutritional support planned with upcoming feeding tube insertion. - Recurrent oral thrush noted, impacting swallowing; treated with Nystatin. Review of Systems PHQ Score Initial Depression Screen Score: 0 SCORE Physical Exam Vitals & Measurements HR: 64(Peripheral) RR: 18 BP: 122/80 SpO2: 97% HT: 160 cm HT: 63 in WT: 67.4 kg WT: 148.591 lb BMI: 26.33 General: alert, no acute distress ENMT: oral mucosa moist, thrush present Cardiovascular: Regular rate and rhythm, normal peripheral perfusion Respiratory: Lungs clear to auscultation, respirations non labored Extremities: no deformity, no trauma Neurological: oriented x 4, level of consciousness appropriate for age, CN II-XII intact, motor strength equal & normal bilaterally, speech normal Abdomen: Soft, Non-tender, Non-distended, + Bowel sounds, moderate to large amount of stool present in colon and rectum consistent with constipation Assessment/Plan 1. Mild pulmonary hypertension (I27.20: Pulmonary hypertension, unspecified) - NO issues at this time. - Has not followed up with pulm 2. BMI 26.0-26.9,adult (Z68.26: Body mass index [BMI] 26.0-26.9, adult) BMI education added. 3. Former smoker (Z87.891: Personal history of nicotine dependence) Please continue to not smoke. Ordered: Body Mass Index (BMI) documented 3008F Current tobacco non-user 1036F Depression Screening Negative 3352F Discharge medications reconciled with current medications in outpatient record 1111F Influenza immunization status assessed 1030F Medication list documented in medical record 1159F Most recent diastolic blood pressure 80-89 mm Hg 3079F Patient screen for fall risk: no falls in last year or 1 fall with no injury in last year 1101F Review of all meds by a prescribing practitioner or clinical pharmacist documented in EHR 1160F Systolic BP <130 mm Hg (Most Recent) 3074F 4. Overweight (BMI 25.0-29.9) (E66.3: Overweight) Diet and exercise advised 5. Unspecified abdominal pain (R10.9) - Current treatments: MiraLax, Senna. Nodule stable. 6. Dysphagia, unspecified (R13.10) - Nystatin for oral thrush. Plan for feeding tube due to nutrition issues. 7. Candidal esophagitis (B37.81) - Initiate Nystatin treatment. Follow-up on effectiveness. Orders: nystatin, 500,000 unit(s) = 5 mL, Oral, q6hr, retain in mouth as long as possible before swallowing, X 7 day(s), # 140 mL, Refills(s) 0, Pharmacy: [id number], 160, cm, 09/28/24 14:41:00 EDT, Height/Length Dosing, 67.4, kg, 09/28/24 14:41:00 EDT... - Nystatin (Swish and swallow) ordered - 83-year-old male with history of former smoking and mild pulmonary hypertension presenting with abdominal pain and dysphagia. - Abdominal discomfort linked to constipation. - Dysphagia attributed to thrush, impacting nutrition significantly. During the visit, we discussed that the abdominal pain could be largely due to constipation, as supported by CT findings. Despite current treatment with MiraLax and Senna, I advised the continuation and close monitoring of laxative response. The possibility of the nodule causing discomfort was considered unlikely based on previous stability with imaging comparisons. We talked about the dysphagia, which may be exacerbated by recurrent oral thrush. I prescribed Nystatin in a [id number] method to effectively address the thrush symptoms and advised on the necessity of adhering to the regimen despite discomfort. Plans for the feeding tube were confirmed for nutritional support due to the patient's severe throat pain limiting oral intake. We agreed to follow up on the patient's response to thrush treatment and reevaluate any persisting symptoms to adjust the care plan as needed. Follow-up No qualifying data available Problem List/Past Medical History Ongoing Bloating BMI 26.0-26.9,adult Cancer associated pain Cervical lymphadenopathy Cervical spondylosis Chronic GERD Constipation due to opioid therapy 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 Diverticulo (more content not included)... Normal [facility] Comment on above: Result Comment: Elec tronically Signed By: Allison CASON, [email or web address] [email or web address]\Date and Time Signed: 09/28/24 15:12 EDT Alanine aminotransferase [En zymatic activity/volume] in Serum or PlasmaOrdered By: Maru Hayes on 09-20-2024 ALT [Catalytic activity/Vol] Alanine aminotransferase [Enzymatic activity/volume] in Serum or Plasma 752 [facility] Albumin [Mass/volume] in Ser um or Plasma by Bromocresol green (BCG) dye binding methoOrdered By: Maru Hayes on 09-20-2024 Albumin BCG dye [Mass/Vol] Albumin [Mass/volume] in Serum or Plasma by Bromocresol green (BCG) dye binding metho 3.5-5.7 [facility] Alkaline phosphatase [Enzyma tic activity/volume] in Serum or PlasmaOrdered By: Maru Hayes on 09-20-2024 ALP [Catalytic activity/Vol] Alkaline phosphatase [Enzymatic activity/volume] in Serum or Plasma 34-104 [facility] Appearance of UrineOrdered B y: Maru Hayes on 09-20-2024 Appearance (U) Urine appearance Clear [facility] Aspartate aminotransferase [ Enzymatic activity/volume] in Serum or PlasmaOrdered By: Maru Hayes on 09-20-2024 AST [Catalytic activity/Vol] Aspartate aminotransferase [Enzymatic activity/volume] in Serum or Plasma 13-39 [facility] Basic Metabolic Panelon 050 Anion gap [Moles/Vol] 10.2 mmol/L Normal 6.0-15.0 Th e [facility] Comment on above: Performed By: #### L IPASE, CBC, HEPATIC, BMP #### [facility] [address] [place] [address] [place] Calcium [Mass/Vol] 9.5 mg/dL Normal 8.6-10.3 [facility] Comment on above: Performed By: #### L IPASE, CBC, HEPATIC, BMP #### [facility] [address] [place] [id number] [place] Chloride [Moles/Vol] 104 mmol/L Normal 98-107 [facility] Comment on above: Performed By: #### L IPASE, CBC, HEPATIC, BMP #### [facility] [address] [place] [address] [place] CO2 [Moles/Vol] 26.8 mmol/L Normal 21.0-31.0 [facility] Comment on above: Performed By: #### L IPASE, CBC, HEPATIC, BMP #### [facility] [address] [place] [address] [place] Creatinine [Mass/Vol] 0.70 mg/dL Normal 0.70-1.30 [facility] Comment on above: Performed By: #### L IPASE, CBC, HEPATIC, BMP #### [facility] [address] [place] [address] [place] Creatinine Clr Calc Pharmacy 59.79 Normal [facility] Comment on above: Performed By: #### L IPASE, CBC, HEPATIC, BMP #### [facility] [address] [place] [address] [place] GFR/1.73 sq M.predicted MDRD (S/P/Bld) [Vol rate/Area] mL/min/{1.73_m2} Normal [facility] Comment on above: Performed By: #### L IPASE, CBC, HEPATIC, BMP #### [facility] [address] [place] [address] [place] Glucose [Mass/Vol] 105 mg/dL High 70-100 [facility] Comment on above: Result Comment: [place] Glucose Reference Range is dependent on time and content of last meal. Glucose of more than 200 mg/dL in a nonstressed, ambulatory subject supports the diagnosis of Diabetes Mellitus. ADA recommended reference range Performed By: #### L IPASE, CBC, HEPATIC, BMP #### [facility] [address] [place] [address] [place] Potassium [Moles/Vol] 4.0 mmol/L Normal 3.5-5.1 [facility] Comment on above: Performed By: #### L IPASE, CBC, HEPATIC, BMP #### [facility] [address] [place] [address] [place] Sodium [Moles/Vol] 137 mmol/L Normal 136-145 [facility] Comment on above: Performed By: #### L IPASE, CBC, HEPATIC, BMP #### [facility] [address] Urea nitrogen [Mass/Vol] 20 mg/dL Normal 7-25 [facility] Comment on above: Performed By: #### L IPASE, CBC, HEPATIC, BMP #### [facility] [address] [place] [address] [place] Basophils Auto (Bld) [#/Vol] Ordered By: Maru Hayes on 09-20-2024 Basophils (Bld) [#/Vol] Automated basophil count 0.0-0.2 [facility] Basophils/100 WBC Auto (Bld) Ordered By: Maru Hayes on 09-20-2024 Basophils/100 WBC (Bld) Automated basophil % . [facility] Bilirubin Test strip Ql (U)O rdered By: Maru Hayes on 09-20-2024 Bilirubin Ql (U) Bilirubin.total [Presence] in Urine by Test strip Negative [facility] Bilirubin.direct [Mass/volum e] in Serum or PlasmaOrdered By: Maru Hayes on 09-20-2024 Bilirubin.direct [Mass/Vol] Bilirubin.direct [Mass/volume] in Serum or Plasma 0.03-0.18 [facility] Bilirubin.total [Mass/volume ] in Serum or PlasmaOrdered By: Maru Hayes on 09-20-2024 Bilirubin [Mass/Vol] Bilirubin.total [Mass/volume] in Serum or Plasma 0.3-1.0 [facility] CT abdomen pelvis w conon CT abdomen pelvis w con [facility] Main [place] [address] [place] [address] CT Scan Report Signed Patient: Jeremie Bennett MR#: [id number] 669 : 1940 Acct:[id number] Age/Sex: 83 / M ADM Date: 09/20/24 Loc: ER Room: Type: [facility] ER Attending Dr: Copies to: Maru Hayes MD Ordering Provider: Maru Hayes MD Date of Service: 09/20/24 CT/CT abdomen pelvis w con: r/o sbo, constipated x few days CT abdomen pelvis w con 09/20/2024 5:42 PM SIGNS AND SYMPTOMS: Lower abdominal pain, constipation TECHNIQUE: Multidetector ct axial images of the abdomen and pelvis were obtained with IV contrast. Multiplanar reformats were performed and reviewed to further define anatomy and possible pathology. CT was performed with one or more of the following dose reduction techniques: Automated exposure control, adjustment of the mA and/or kV according to patient size, or use of iterative reconstruction technique. COMPARISON: 03/27/2024 FINDINGS: Lower Chest: Atherosclerotic changes are noted in the thoracic aorta and within the coronary arteries. There is a 5 mm noncalcified nodule in the right costophrenic sulcus. ABDOMEN: Liver: Within normal limits. Bile Ducts: Normal caliber. Gallbladder: Previously removed Pancreas: Within normal limits. Spleen: Within normal limits. Adrenals: Within normal limits. Kidneys: Within normal limits. Pelvis: Reproductive Organs: No pelvic masses. Ureters: Within normal limits. Bladder: Within normal limits. Bowel: There is a moderate to large amount of stool within the colon and rectum consistent with a history of constipation. There are uncomplicated colonic diverticula. Mesenteric Lymph Nodes: No enlarged mesenteric lymph nodes. Peritoneum: No ascites or free air, no fluid collection. Vessels: Atherosclerotic changes are noted in the abdominal aorta and its branches. Retroperitoneum: Within normal limits. Abdominal Wall: Within normal limits. Bones: Degenerative changes are noted in the thoracolumbar spine as well as the hips and sacroiliac joints. CT/CT abdomen pelvis w con IMPRESSION: There is a moderate to large amount of stool within the colon and rectum consistent with a history of constipation. There are uncomplicated colonic diverticula. There is a 5 mm noncalcified nodule in the right costophrenic sulcus. This is unchanged when compared to the prior exam. Follow-up per Fleischner Society guidelines is recommended. Impression dictated by: Rafi Gordon M.D. 09/20/2024 8:03 PM Dictation Location: [place] [address] Transcribed By: [facility] 09/20/242002 Dictated By: Rafi Gordon II, MD 09/20/24 1948 Signed By: 09/20/242002 Normal [facility] Calcium [Mass/volume] in Ser um or PlasmaOrdered By: Maru Hayes on 09-20-2024 Calcium [Mass/Vol] Calcium [Mass/volume ] in Serum or Plasma 8.6-10.3 [facility] Carbon dioxide, total [Moles /volume] in Serum or PlasmaOrdered By: Maru Hayes on 09-20-2024 CO2 [Moles/Vol] Carbon dioxide, tota l [Moles/volume] in Serum or Plasma 21.0-31.0 [facility] Chloride [Moles/volume] in S stephanie or PlasmaOrdered By: Maru Hayes on 09-20-2024 Chloride [Moles/Vol] Chloride [Moles/vol ume] in Serum or Plasma 98-107 [facility] Color Auto (U)Ordered By: Ronald Hayes on 09-20-2024 Color (U) Color of Urine by Auto Yellow [facility] Complete Blood Count Auto Di ffon 09-20-2024 Basophils (Bld) [#/Vol] 0.1 10*3/uL Normal 0.0-0.2 [facility] Comment on above: Result Comment: PERF ORMED BY: [place] [address] PATHOLOGIST MAINTENANCE PIPEFITTER HEBER SHANNON M.D. Performed By: #### L IPASE, CBC, HEPATIC, BMP #### [facility] [address] [place] [address] Basophils/100 WBC (Bld) 1.2 % Normal . [facility] Comment on above: Performed By: #### L IPASE, CBC, HEPATIC, BMP #### [facility] [address] [place] [address] [place] Eosinophils (Bld) [#/Vol] 0.3 10*3/uL Normal 0.0-0.45 [facility] Comment on above: Performed By: #### L IPASE, CBC, HEPATIC, BMP #### [facility] [address] Eosinophils/100 WBC (Bld) 2.5 % Normal . [facility] Comment on above: Performed By: #### L IPASE, CBC, HEPATIC, BMP #### [address] Erythrocyte distribution width (RBC) [Ratio] 15.9 % High 12.0-14.8 [facility] Comment on above: Performed By: #### L IPASE, CBC, HEPATIC, BMP #### [address] Hematocrit (Bld) [Volume fraction] 35.3 % Low 38.8-50.0 [facility] Comment on above: Performed By: #### L IPASE, CBC, HEPATIC, BMP #### [address] Hemoglobin (Bld) [Mass/Vol] 11.8 g/dL Low 13.0-17.0 [facility] Comment on above: Performed By: #### L IPASE, CBC, HEPATIC, BMP #### [address] Lymphocytes (Bld) [#/Vol] 2.8 10*3/uL Normal 1.00-4.8 [facility] Comment on above: Performed By: #### L IPASE, CBC, HEPATIC, BMP #### [address] Lymphocytes/100 WBC (Bld) 24.8 % Normal . [facility] Comment on above: Performed By: #### L IPASE, CBC, HEPATIC, BMP #### [address] MCH (RBC) [Entitic mass] 30.5 pg Normal 27.5-35.2 [facility] Comment on above: Performed By: #### L IPASE, CBC, HEPATIC, BMP #### [address] MCV (RBC) [Entitic vol] 91.7 fL Normal 83.5-101 [facility] Comment on above: Performed By: #### L IPASE, CBC, HEPATIC, BMP #### [address] Mean Corpuscular HGB Conc 33.3 g/dL Normal 32.5-35.6 [facility] Comment on above: Performed By: #### L IPASE, CBC, HEPATIC, BMP #### [address] Monocytes (Bld) [#/Vol] 0.8 10*3/uL Normal 0.0-0.8 [facility] Comment on above: Performed By: #### L IPASE, CBC, HEPATIC, BMP #### [address] Monocytes/100 WBC (Bld) 22.62 % High 0.00-20.00 [facility] Comment on above: Result Comment: For adults in ED, MDW > 20.0 may be associated with a higher risk of sepsis during the first 12 hrs of hospital admission Performed By: #### L IPASE, CBC, HEPATIC, BMP #### [address] Monocytes/100 WBC (Bld) 7.2 % Normal . [facility] Comment on above: Performed By: #### L IPASE, CBC, HEPATIC, BMP #### [address] Neutrophils (Bld) [#/Vol] 7.2 10*3/uL Normal 1.8-7.7 [facility] Comment on above: Performed By: #### L IPASE, CBC, HEPATIC, BMP #### [address] Neutrophils/100 WBC (Bld) 64.3 % Normal . [facility] Comment on above: Performed By: #### L IPASE, CBC, HEPATIC, BMP #### [place] [address] [place] NRBC% 0.0 /100{WBC} Normal 0-0.5 [facility] Comment on above: Performed By: #### L IPASE, CBC, HEPATIC, BMP #### [address] Platelet mean volume (Bld) [Entitic vol] 8.3 fL Normal 6.6-10.1 [facility] Comment on above: Performed By: #### L IPASE, CBC, HEPATIC, BMP #### [facility] [address] Platelets (Bld) [#/Vol] 226 10*3/uL Normal 150-450 [facility] Comment on above: Performed By: #### L IPASE, CBC, HEPATIC, BMP #### [address] RBC (Bld) [#/Vol] 3.85 10*6/uL Low 3.90-5.60 [facility] Comment on above: Performed By: #### L IPASE, CBC, HEPATIC, BMP #### [address] WBC (Bld) [#/Vol] 11.2 10*3/uL High 4.1-10.5 [facility] Comment on above: Performed By: #### L IPASE, CBC, HEPATIC, BMP #### [address] Creatinine [Mass/volume] in Serum or PlasmaOrdered By: Maru Hayes on 09-20-2024 Creatinine [Mass/Vol] Creatinine [Mass/v olume] in Serum or Plasma 0.70-1.30 [facility] ECG 12 lead ECGon 09-20-2024 ECG 12 lead ECG [facility] [address] Electrocardiograph Report Signed Patient: Jeremie Bennett MR#: [id number] 669 : 1940 Acct:[id number] Age/Sex: 83 / M ADM Date: 09/20/24 Loc: ER Room: Type: [facility] ER Attending Dr: Ordering Provider: Maru Hayes MD Date of Service: 09/20/2412/08/1741 ECG/ECG 12 lead ECG: Abdominal Pain Copies to: Test Reason : Blood Pressure : */* mmHG Vent. Rate : 73 BPM Atrial Rate : 73 BPM P-R Int : 230 ms QRS Dur : 144 ms QT Int : 430 ms P-R-T Axes : 59 -74 39 degrees QTcB Int : 473 ms Sinus rhythm with 1st degree AV block with occasional premature ventricular complexes Right bundle branch block Left anterior fascicular block Bifascicular block Abnormal ECG Confirmed by Maru Hayes MD ([id number]) on 09/20/2024 11:00:16 PM Referred By: Electronically Signed By: Maru Hayes MD Transcribed By: MUS Signed By Maru Hayes MD 12/08 2300 Normal [facility] Eosinophils Auto (Bld) [#/Vo l]Ordered By: Maru Hayes on 09-20-2024 Eosinophils (Bld) [#/Vol] Automated eosinophil count 0.0-0.45 [facility] Eosinophils/100 WBC Auto (Bl d)Ordered By: Maru Hayes on 09-20-2024 Eosinophils/100 WBC (Bld) Automated eosinophil % . [facility] Erythrocyte distribution wid th Auto (RBC) [Ratio]Ordered By: Maru Hayes on 09-20-2024 Erythrocyte distribution width (RBC) [Ratio] Erythrocyte distribution width [Ratio] by Automated count High 12.0-14.8 [facility] Globulin Calc (S) [Mass/Vol] Ordered By: Maru Hayes on 09-20-2024 Globulin (S) [Mass/Vol] Serum globulin measurement by calculation (mass/volume) [facility] Glucose [Mass/volume] in Ser um or PlasmaOrdered By: Maru Hayes on 09-20-2024 Glucose [Mass/Vol] Glucose [Mass/volume ] in Serum or Plasma High 70-100 [facility] Comment on above: ADA recommended refe rence rangeRandom Glucose Reference Range is dependent on time and content of last meal. Glucose of more than 200 mg/dL in a nonstressed, ambulatory subject supports the diagnosis of Diabetes Mellitus. Glucose [Mass/volume] in Uri ne by Test stripOrdered By: Maru Hayes on 09-20-2024 Glucose Test strip (U) [Mass/Vol] Glucose [Mass/volume] in Urine by Test strip Normal [facility] Hematocrit Auto (Bld) [Volum e fraction]Ordered By: Maru Hayes on 09-20-2024 Hematocrit (Bld) [Volume fraction] Hematocrit [Volume Fraction] of Blood by Automated count Low 38.8-50.0 [facility] Hemoglobin Test strip Ql (U) Ordered By: Maru Hayes on 09-20-2024 Hemoglobin Ql (U) Hemoglobin [Presence ] in Urine by Test strip Negative [facility] Hemoglobin [Mass/volume] in BloodOrdered By: Maru Hayes on 09-20-2024 Hemoglobin (Bld) [Mass/Vol] Hemoglobin [Mass/volume] in Blood Low 13.0-17.0 [facility] Hepatic Panelon 09-20-2024 Albumin [Mass/Vol] 3.5 g/dL Normal 3.5-5.7 [facility] Comment on above: Performed By: #### L IPASE, CBC, HEPATIC, BMP #### [address] Albumin/Globulin [Mass ratio] 1.2 {ratio} Normal [facility] Comment on above: Performed By: #### L IPASE, CBC, HEPATIC, BMP #### [address] ALP [Catalytic activity/Vol] 81 U/L Normal 34-104 [facility] Comment on above: Performed By: #### L IPASE, CBC, HEPATIC, BMP #### [address] ALT [Catalytic activity/Vol] 9 U/L Normal 7-52 [facility] Comment on above: Performed By: #### L IPASE, CBC, HEPATIC, BMP #### [facility] [address] [place] [address] [place] AST [Catalytic activity/Vol] 14 U/L Normal 13-39 [facility] Comment on above: Performed By: #### L IPASE, CBC, HEPATIC, BMP #### [facility] [address] [place] [address] [place] Bilirubin [Mass/Vol] 0.5 mg/dL Normal 0.3-1.0 [facility] Comment on above: Performed By: #### L IPASE, CBC, HEPATIC, BMP #### [facility] [address] [place] [address] [place] Bilirubin,Indirect 0.4 mg/dL Normal [facility] Comment on above: Performed By: #### L IPASE, CBC, HEPATIC, BMP #### [address] Bilirubin.indirect [Mass/Vol] 0.10 mg/dL Normal 0.03-0.18 [facility] Comment on above: Performed By: #### L IPASE, CBC, HEPATIC, BMP #### [address] Globulin (S) [Mass/Vol] 2.9 g/dL Normal [facility] Comment on above: Performed By: #### L IPASE, CBC, HEPATIC, BMP #### [address] Protein [Mass/Vol] 6.4 g/dL Normal 6.4-8.9 [facility] Comment on above: Performed By: #### L IPASE, CBC, HEPATIC, BMP #### [address] Ketones Test strip Ql (U)Ord ered By: Maru Hayes on 09-20-2024 Ketones Ql (U) Ketones [Presence] i n Urine by Test strip Negative [facility] Leukocyte esterase [Presence ] in Urine by Test stripOrdered By: Maru Hayes on 09-20-2024 Leukocyte esterase Test strip Ql (U) Leukocyte esterase [Presence] in Urine by Test strip Negative [facility] Leukocytes [#/volume] correc suzy for nucleated erythrocytes in Blood by Automated counOrdered By: Maru Hayes on 09-20-2024 WBC corrected for nucl RBC Auto (Bld) [#/Vol] Leukocytes [#/volume] corrected for nucleated erythrocytes in Blood by Automated coun High 4.1-10.5 [facility] Lipaseon 09-20-2024 Lipase [Catalytic activity/Vol] 34.0 U/L Normal 11.0-82.0 [facility] Comment on above: Result Comment: PERF ORMED BY: [place] [address] PATHOLOGIST MAINTENANCE PIPEFITTER HEBER SHANNON M.D. Performed By: #### L IPASE, CBC, HEPATIC, BMP #### [facility] [address] Lipase [Enzymatic activity/v olume] in Serum or PlasmaOrdered By: Maru Hayes on 09-20-2024 Lipase [Catalytic activity/Vol] Lipase [Enzymatic activity/volume] in Serum or Plasma 11.0-82.0 [facility] Lymphocytes Auto (Bld) [#/Vo l]Ordered By: Maru Hayes on 09-20-2024 Lymphocytes (Bld) [#/Vol] Lymphocytes [#/volume] in Blood by Automated count 1.00-4.8 [facility] Lymphocytes/100 WBC Auto (Bl d)Ordered By: Maru Hayes on 09-20-2024 Lymphocytes/100 WBC (Bld) Lymphocytes/100 leukocytes in Blood by Automated count . [facility] MCH Auto (RBC) [Entitic mass ]Ordered By: Maru Hayes on 09-20-2024 MCH (RBC) [Entitic mass] MCH [Entitic mass] by Automated count 27.5-35.2 [facility] MCHC Auto (RBC) [Mass/Vol]Or dered By: Maru Hayes on 09-20-2024 MCHC (RBC) [Mass/Vol] MCHC [Mass/volume] by Automated count 32.5-35.6 [facility] MCV Auto (RBC) [Entitic vol] Ordered By: Maru Hayes on 09-20-2024 MCV (RBC) [Entitic vol] MCV [Entitic volume] by Automated count 83.5-101 [facility] Monocyte distribution width [Entitic volume] in Blood by AutomatedOrdered By: Maru Hayes on 09-20-2024 Monocyte distribution width Auto (Bld) [Entitic vol] Monocyte distribution width [Entitic volume] in Blood by Automated High 0.00-20.00 [facility] Comment on above: For adults in ED, MD W > 20.0 may be associated with a higher risk of sepsis during the first 12 hrs of hospital admission Monocytes Auto (Bld) [#/Vol] Ordered By: Maru Hayes on 09-20-2024 Monocytes (Bld) [#/Vol] Automated blood monocyte count 0.0-0.8 [facility] Monocytes/100 WBC Auto (Bld) Ordered By: Maru Hayes on 09-20-2024 Monocytes/100 WBC (Bld) Automated monocyte % . [facility] Neutrophils Auto (Bld) [#/Vo l]Ordered By: Maru Hayes on 09-20-2024 Neutrophils (Bld) [#/Vol] Neutrophils [#/volume] in Blood by Automated count 1.8-7.7 [facility] Neutrophils/100 WBC Auto (Bl d)Ordered By: Maru Hayes on 09-20-2024 Neutrophils/100 WBC (Bld) Automated neutrophil % . [facility] Nitrite Test strip Ql (U)Ord ered By: Maru Hayes on 09-20-2024 Nitrite Ql (U) Nitrite [Presence] i n Urine by Test strip Negative [facility] No Panel InformationOrdered By: Maru Hayes on 09-20-2024 Estimated GFR (CKD-EPI) > 60.0 mL/Min [facility] Creatinine Clearance (Chem 59.79 [facility] Nucleated erythrocytes [Pres ence] in Blood by Automated countOrdered By: Maru Hayes on 09-20-2024 Nucleated RBC Auto Ql (Bld) Nucleated erythrocytes [Presence] in Blood by Automated count 0-0.5 [facility] Platelet mean volume Auto (B ld) [Entitic vol]Ordered By: Maru Hayes on 09-20-2024 Platelet mean volume (Bld) [Entitic vol] Platelet mean volume [Entitic volume] in Blood by Automated count 6.6-10.1 [facility] Platelets Auto (Bld) [#/Vol] Ordered By: Maru Hayes on 09-20-2024 Platelets (Bld) [#/Vol] Platelets [#/volume] in Blood by Automated count 150-450 [facility] Population Health 09-21-19 [facility] Case Information Case Priority: None Programs: -- Referral Source: Senior Marketing Coordinator Referral Reason: Care coordination Case Type: Transition Care Management Risk Score: -- Case Status: Enrolled (August 22, 2024) Date Assigned: August 22, 2024 Assigned By: Galileo Tucker Date Enrolled: August 22, 2024 Assigned Primary Personnel: Galileo Tucker Assigned Secondary Personnel: -- Case Physician: Demetrius Cooper MD Problems Ongoing Bloating BMI 25.0-25.9,adult Cancer associated pain Cervical lymphadenopathy Cervical spondylosis Chronic GERD Constipation due to opioid therapy 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 Diverticulosis FH: stomach cancer Former smoker GERD with apnea Glaucoma Hemorrhoids History of colon polyps Hypercholesterolemia Immunosuppression Lumbar spondylosis Lump on neck Metastasis to cervical lymph node Migraine Mild pulmonary hypertension Nausea Numbness of right hand Osteoarthritis Overweight (BMI 25.0-29.9) Pacemaker Pancreatic cyst Personal history of prostate cancer Primary hypertension PUD (peptic ulcer disease) Right flank pain, chronic RUQ pain Sleep apnea Squamous cell carcinoma of oropharynx Thoracic aortic ectasia Type 2 diabetes mellitus with hypercholesterolemia Urinary hesitancy Urinary incontinence without sensory awareness Vitamin D deficiency Historical BMI 30.0-30.9,adult Diarrhea Fecal urgency Irregular bowel habits Procedure/Surgical History Ablation (08/17/2023), Colonoscopy (06/14/2023), Esophagogastroduodenoscop y (04/15/2023), Esophagogastroduodenoscop y (05/20/2020), Angioplasty, Cardiac pacemaker procedure, Cataract, Cholecystectomy, Colonoscopy, Hernia repair, Prostate excision, Tonsillectomy, Vasectomy. Home Medications Albuterol (Eqv-ProAir HFA) 90 mcg/inh inhalation aerosol, See Instructions amLODIPine 5 mg Tab, 5 mg= 1 tab(s), Oral, Daily, 1 refills Aspir 81, 81 mg, Oral, Daily dorzolamide ophthalmic 2% solution, 1 drop(s), OPTH, BID Esgic 325 mg-50 mg-40 mg oral capsule, 1 cap(s), Oral, q4hr, PRN, 1 refills fentaNYL 12 mcg/hr Transderm ER Film, 1 patch(es), Topical, q72hr fluticasone Nasal 0.05 mg/inh Malcom, See Instructions furosemide 20 mg Tab, 20 mg= 1 tab(s), Oral, Daily irbesartan 300 mg Tab, 300 mg= 1 tab(s), Oral, Daily isosorbide mononitrate, 30 mg, Oral, qAM latanoprost Opth 0.005% Janee metformin 500 mg ER Tab, 500 mg= 1 tab(s), Oral, Daily Multivitamin, Therapeutic w/ Minerals, Oral, Daily olanzapine 2.5 mg Tab omeprazole 40 mg Cap-DR, See Instructions ondansetron 8 mg Dis Tab oxycodone 5 mg/5 mL oral solution Pepcid 20 mg Tab, 20 mg= 1 [...] Social History Alcohol - Low Risk, 11/08/2023 Current. Wine. 1-2 times per week., 04/17/2024 Substance Abuse - Denies Substance Abuse, 04/25/2020 Never., 04/17/2024 Tobacco - Denies Tobacco Use, 04/25/2020 Former smoker, quit more than 30 days ago Tobacco Use:. Never Smokeless Tobacco Use:. Cigarettes, 1.5 per day. 24 year(s). Total pack years: 36. Started age 18.0 Years. Stopped age 41 Years. Household tobacco concerns: No. Yes, 09/14/2024 Family History Heart trouble: Mother and Grandparent. Hypertension: Mother and Grandparent. Pancreatic: Other Relationship. Primary malignant neoplasm of prostate: Father. Stomach cancer: Grandparent. Thyroid disease: Grandparent. Tuberculosis: Grandparent. Screenings and Assessments 08/22/24 10:51:00 Result Name Value Comment Phone Call Monitoring Consent Agreed to continue call Phone Verification Patient Information Full name, street address and date of verified CM Program Enrollment Provides verbal consent for enrollment Goals and Interventions Care Plan Progress Note TCM#4- Spoke with patient for final TCM status update. Patient states he is 'doing pretty good.' Notes he continues to have a cough and difficult time with eating, d/t radiation treatments. He continues magic mouth wash, states it is about the same as it has been. Patient denies any further fever. Reports side pain has seemed to resolve. Patient states PCP ordered a US of the liver at OV 09/14, but he has not heard from [facility], a message sent to clinical for f/u. Patient denies any further questions or concerns. Communication Events Date: September 20, 2024 Method: Phone call Type: Outbound Duration (min): 3 Outcome: Case discussion Contact Type: Patient Contact Name: B (more content not included)... Normal [facility] Potassium [Moles/volume] in Serum or PlasmaOrdered By: Maru Hayes on 09-20-2024 Potassium [Moles/Vol] Potassium [Moles/v olume] in Serum or Plasma 3.5-5.1 [facility] Protein Test strip (U) [Mass /Vol]Ordered By: Maru Hayes on 09-20-2024 Protein (U) [Mass/Vol] Protein [Mass/vol ume] in Urine by Test strip Negative [facility] Protein [Mass/volume] in Ser um or PlasmaOrdered By: Maru Hayes on 09-20-2024 Protein [Mass/Vol] Protein [Mass/volume ] in Serum or Plasma 6.4-8.9 [facility] RBC Auto (Bld) [#/Vol]Ordere d By: Maru Hayes on 09-20-2024 RBC (Bld) [#/Vol] Erythrocytes [#/volu me] in Blood by Automated count Low 3.90-5.60 [facility] Serum or plasma albumin/glob ulin mass ratioOrdered By: Maru Hayes on 09-20-2024 Albumin/Globulin [Mass ratio] Serum or plasma albumin/globulin mass ratio [facility] Serum or plasma anion gap de terminationOrdered By: Maru Hayes on 09-20-2024 Anion gap [Moles/Vol] Serum or plasma an ion gap determination 6.0-15.0 [facility] Serum or plasma non-glucuron idated bilirubin measurement (mass/volume)Ordered By: Maru Hayes on 09-20-2024 Bilirubin.indirect [Mass/Vol] Serum or plasma non-glucuronidated bilirubin measurement (mass/volume) [facility] Sodium [Moles/volume] in Ser um or PlasmaOrdered By: Maru Hayes on 09-20-2024 Sodium [Moles/Vol] Sodium [Moles/volume ] in Serum or Plasma 136-145 [facility] Specific gravity Test strip (U) [Rel density]Ordered By: Maru Hayes on 09-20-2024 Specific gravity (U) [Rel density] Specific gravity of Urine by Test strip High 1.001-1.03 0 [facility] Troponin I High Sensitivityo n 09-20-2024 Troponin I High Sensitivity 7 Normal 0-20 [facility] Comment on above: Result Comment: The Troponin units of report have been changed to meet the Chest Pain Accreditation requirement, element EC5.M1l2. Troponin units are changed from pg/ml to ng/L. Also, the decimal is removed and results are in whole numbers. PERFORMED BY: [place] [address] PATHOLOGIST MAINTENANCE PIPEFITTER HEBER SHANNON M.D. Performed By: #### H S TROP #### [facility] [address] [place] [address] Troponin I.cardiac [Mass/vol ume] in Serum or Plasma by Detection limit <= 0.01 ng/Ordered By: Maru Hayes on 09-20-2024 Troponin I.cardiac DL <= 0.01 ng/mL [Mass/Vol] Troponin I.cardiac [Mass/volume] in Serum or Plasma by Detection limit <= 0.01 ng/ 0-20 [facility] Comment on above: The Troponin units o f report have been changed to meet the Chest Pain Accreditation requirement, element EC5.M1l2. Troponin units are changed from pg/ml to ng/L. Also, the decimal is removed and results are in whole numbers. Urea nitrogen [Mass/volume] in Serum or PlasmaOrdered By: Maru Hayes on 09-20-2024 Urea nitrogen [Mass/Vol] Urea nitrogen [Mass/volume] in Serum or Plasma 7-25 [facility] Urinalysison 09-20-2024 Appearance (U) Clear Normal Clear [facility] Comment on above: Order Comment: Name Collection Type:: Clean-Voided Midstream Performed By: #### C MP, CBC #### [facility] [address] [place] [address] Bilirubin,Urine Negative Normal Negative The [facility] Comment on above: Order Comment: Name Collection Type:: Clean-Voided Midstream Performed By: #### C MP, CBC #### [place] [address] [place] Color (U) Light-Yellow Normal Yellow [facility] Comment on above: Order Comment: Name Collection Type:: Clean-Voided Midstream Performed By: #### C MP, CBC #### [address] Glucose Ql (U) Normal Normal Normal [facility] Comment on above: Order Comment: Name Collection Type:: Clean-Voided Midstream Performed By: #### C MP, CBC #### [address] Ketones Ql (U) Negative Normal Negative [facility] Comment on above: Order Comment: Name Collection Type:: Clean-Voided Midstream Performed By: #### C MP, CBC #### [address] Leukocyte esterase Test strip Ql (U) Negative Normal Negative [facility] Comment on above: Order Comment: Name Collection Type:: Clean-Voided Midstream Performed By: #### C MP, CBC #### [place] [address] [place] Nitrite,Urine Negative Normal Negative [facility] Comment on above: Order Comment: Name Collection Type:: Clean-Voided Midstream Performed By: #### C MP, CBC #### [place] [address] [place] Occult Blood,Urine Negative Normal Negative [facility] Comment on above: Order Comment: Name Collection Type:: Clean-Voided Midstream Result Comment: PERF ORMED BY: [place] [address] PATHOLOGIST MAINTENANCE PIPEFITTER HEBER SHANNON M.D. Performed By: #### C MP, CBC #### [place] [address] [place] pH (U) 5.0 [pH] Normal 5.0-9.0 [facility] Comment on above: Order Comment: Name Collection Type:: Clean-Voided Midstream Performed By: #### C MP, CBC #### [facility] [address] [place] [address] [place] Protein,Urine Negative Normal Negative [facility] Comment on above: Order Comment: Name Collection Type:: Clean-Voided Midstream Performed By: #### C MP, CBC #### [address] Specificy [place],Urine 1.039 High 1.001-1.03 0 [facility] Comment on above: Order Comment: Name Collection Type:: Clean-Voided Midstream Performed By: #### C MP, CBC #### [address] Urobilinogen,Urine Normal Normal Normal [facility] Comment on above: Order Comment: Name Collection Type:: Clean-Voided Midstream Performed By: #### C MP, CBC #### [address] Urobilinogen Test strip (U) [Mass/Vol]Ordered By: Maru Hayes on 09-20-2024 Urobilinogen (U) [Mass/Vol] Urobilinogen [Mass/volume] in Urine by Test strip Normal [facility] WBC Auto (Bld) [#/Vol]Ordere d By: Maru Hayes on 09-20-2024 WBC (Bld) [#/Vol] Leukocytes [#/volume ] in Blood by Automated count High 4.1-10.5 [facility] pH Test strip (U)Ordered By: Maru Hayes on 09-20-2024 pH (U) pH of Urine by Test strip 5.0-9.0 [facility] Ambulatory Visit Summaryon 0 09-14-2024 Ambulatory Visit Summary Ambulatory Visit Summary JEREMIE BENNETT :1940 Visit Date:09/14/2024 Ambulatory Visit Instructions Your Diagnosis RUQ pain Former smoker Overweight (BMI 25.0-29.9) BMI 25.0-25.9,adult 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 Primary Care Physician - Demetrius Cooper MD This Is Your Medications List APAP/butalbital/caffeine (Esgic 325 mg-50 mg-40 mg oral capsule) albuterol (Albuterol (Eqv-ProAir HFA) 90 mcg/inh inhalation aerosol) amlodipine (amLODIPine 5 mg Tab) aspirin (Aspir 81) clopidogrel (Plavix 75 mg Tab) dorzolamide ophthalmic (dorzolamide ophthalmic 2% solution) famotidine (Pepcid 20 mg Tab) fentanyl (fentaNYL 12 mcg/hr Transderm ER Film) fluticasone nasal (fluticasone Nasal 0.05 mg/inh Malcom) furosemide (furosemide 20 mg Tab) irbesartan (irbesartan 300 mg Tab) isosorbide mononitrate latanoprost ophthalmic (latanoprost Opth 0.005% Janee) metformin (metformin 500 mg ER Tab) multivitamin with minerals (Multivitamin, Therapeutic w/ Minerals) olanzapine (olanzapine 2.5 mg Tab) omeprazole (omeprazole 40 mg Cap-DR) ondansetron (ondansetron 8 mg Dis Tab) oxycodone (oxycodone 5 mg/5 mL oral solution) rosuvastatin (rosuvastatin 10 mg Tab) sotalol (sotalol 80 mg Tab) tizanidine (tiZANidine 4 mg Tab) zonisamide (zonisamide 25 mg Cap) Procedures Performed Ablation (08/17/2023), Colonoscopy (06/14/2023), Esophagogastroduodenoscop y (04/15/2023), Esophagogastroduodenoscop y (05/20/2020), Angioplasty, Cardiac pacemaker procedure, Cataract, Cholecystectomy, Colonoscopy, Hernia repair, Prostate excision, Tonsillectomy, Vasectomy. Discharge Vitals Temperature (Tympanic) 36.8 ???C Heart Rate (Peripheral) 60 Respiratory Rate 18 Height 160 cm Height 63 in Weight 64.1 kg Weight 141.316 lb BMI 25.04 What to do next Scheduled Follow-Up Appointments September. 2024 2:40 PM EDT With: Demetrius Cooper MD Where: [address] [id number]- Wednesday 2:30 PM EDT With: Where: [address] [address]- Wednesday 3:20 PM EDT With: Demetrius Cooper MD Where: [address] [address]- Medications What How Much When Instructions Unchanged [...] 1 Tablets By Mouth Every day Unchanged fentanyl (fentaNYL 12 mcg/ hr Transderm ER Film) 1 Patches Topical Every 72 hours Unchanged fluticasone nasal (fluticasone Nasal 0.05 mg/ inh Malcom) See instructions USE 1 SPRAY IN BOTH NOSTRILS TWICE DAILY Unchanged furosemide (furosemide 20 mg Tab) 1 Tablets By Mouth Every day Unchanged irbesartan (irbesartan 300 mg Tab) 1 Tablets By Mouth Every day Unchanged isosorbide mononitrate 30 Milligram By Mouth Once a day (in the morning) Unchanged latanoprost ophthalmic (latanoprost Opth 0.005% Janee) 10 mL, 0 Refill(s) Unchanged metformin (metformin 500 mg ER Tab) 1 Tablets By Mouth Every day Unchanged multivitamin with minerals (Multivitamin, Therapeutic w/ Minerals) By Mouth Every day Unchanged olanzapine (olanzapine 2.5 mg Tab) TAKE 1 TABLET BY MOUTH TWICE DAILY Unchanged omeprazole (omeprazole 40 mg Cap-DR) See instructions TAKE 1 CAPSULE BY MOUTH DAILY Unchanged ondansetron (ondansetron 8 mg Dis Tab) DISSOLVE 1 TABLET ON THE TONGUE EVERY 8 HOURS NEEDED FOR NAUSEA OR VOMITING Unchanged oxycodone (oxycodone 5 mg/ 5 mL oral solution) take 7.5 mg q 8 hrs as needed for pain Unchanged rosuvastatin (rosuvastatin 10 mg Tab) See [...] problem that you are currently receiving treatment for. Bloating BMI 25.0-25.9,adult Cancer associated pain Cervic (more content not included)... Normal [facility] Office/Clini c Noteon 09-14-2024 Family Medicine Office/Clinic Note Family Medicine Office/Clinic Note Chief Complaint ACute Visit HPI Staff Pt presents today for acute visit. Pain characteristics: Pain location: Rt side of abdomen Intensity:_3/10 Onset: intermittent for quite some time (months) Medication used: GOLD 08/30/24 seen by Yajaira for acute visit due to lower abdominal pain & decreased urinary stream. History of Present Illness Here for acute pain. RUQ. 3/10 pain. Worse last night. Not eating 2/2 the cancer pain in the throat. Has no gallbladder. Pain is worse at night. Patient is struggling with eating. Patient states because of the cancer he is still having pain in the throat. Patient was given a Magic mouthwash however that did not help. No concerns with diabetes at this time other than the patient is not eating and so he is not having issues with his blood sugar. Review of Systems PHQ Score Initial Depression Screen Score: 0 SCORE Physical Exam Vitals & Measurements T: 36.8 ???C(Tympanic) HR: 60(Peripheral) RR: 18 SpO2: 97% HT: 63 in HT: 160 cm WT: 141.316 lb WT: 64.1 kg BMI: 25.04 General: alert, no acute distress ENMT: oral mucosa moist, Cardiovascular: regular rate and rhythm, normal peripheral perfusion Respiratory: Lungs CTA, respirations non labored Extremities: no deformity, no trauma Neurological: oriented x 4, LOC appropriate for age, CN II-XII intact, motor strength equal & normal bilaterally, speech normal Abdomen: Soft, slightly tender to palpation in the right upper quadrant., Non-distended, + BS Assessment/Plan 1. RUQ pain (R10.11: Right upper quadrant pain) At this time I am unsure of the cause of the right upper quadrant pain. Will do ultrasound of the liver. Patient understands that if the pain gets worse he must go to the ER. If the pain is stable he can wait to get the ultrasound done. Ordered: US Liver 2. Former smoker (Z87.891: Personal history of nicotine dependence) Please continue not to smoke Ordered: US Liver 3. Overweight (BMI 25.0-29.9) (E66.3: Overweight) Concern for weight. Discussed diet and nutrition in detail. Ordered: US Liver 4. BMI 25.0-25.9,adult (Z68.25: Body mass index [BMI] 25.0-25.9, adult) BMI education added Ordered: Body Mass Index (BMI) documented 3008F Current tobacco non-user 1036F Depression Screening Negative 3352F Discharge medications reconciled with current medications in outpatient record 1111F Influenza immunization status assessed 1030F Medication list documented in medical record 1159F Most recent diastolic blood pressure <80 mm Hg 3078F Patient screen for fall risk: no falls in last year or 1 fall with no injury in last year 1101F Review of all meds by a prescribing practitioner or clinical pharmacist documented in EHR 1160F Systolic BP <130 mm Hg (Most Recent) 3074F US Liver 5. Diabetic autonomic neuropathy associated with type 2 diabetes mellitus (E11.43: Type 2 diabetes mellitus with diabetic autonomic (poly)neuropathy) No symptoms at this time. Ordered: US Liver 6. Type 2 diabetes mellitus with hypercholesterolemia (E11.69: Type 2 diabetes mellitus with other specified complication) No issues at this time. Continue to monitor blood sugars. Ordered: US Liver 7. Cachexia (R64: Cachexia) Encouraged weight gain. Discussed PEG tube. Patient will discuss further with his cancer doctor. 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 Diverticulosis FH: stomach cancer Former smoker GERD with apnea Glaucoma Hemorrhoids History of colon polyps Hypercholesterolemia Immunosuppression Lumbar spondylosis Lump on neck Metastasis to cervical lymph node Migraine Mild pulmonary hypertension Nausea Numbness of right hand Osteoarthritis Overweight (BMI 25.0-29.9) Pacemaker Pancreatic cyst Personal history of prostate cancer Primary hypertension PUD (peptic ulcer disease) Right flank pain, chronic RUQ pain Sleep apnea Squamous cell carcinoma of oropharynx Thoracic aortic ectasia Type 2 diabetes mellitus with hypercholesterolemia Urinary hesitancy Urinary incontinence without sensory awareness Vitamin D deficiency Historical BMI 30.0-30.9,adult Diarrhea Fecal urgency Irregular bowel habits Procedure/Surgical History Ablation (08/17/2023), Colonoscopy (06/14/2023), Esophagogastroduodenoscop y (04/15/2023), Esophagogastroduodenoscop y (05/20/2020), Angioplasty, Cardiac pacemaker procedure, Cataract, Cholecystectomy, Co (more content not included)... Normal [facility] Comment on above: Result Comment: Elec tronically Signed By: Demetrius Cooper MD\.br\Date and Time Signed: 09/14/24 07:51 EDT [facility] 09-08-19 25 [facility] Case Information Case Priority: None Programs: -- Referral Source: Senior Marketing Coordinator Referral Reason: Care coordination Case Type: Transition Care Management Risk Score: -- Case Status: Enrolled (August 22, 2024) Date Assigned: August 22, 2024 Assigned By: Galileo Tucker Date Enrolled: August 22, 2024 Assigned Primary Personnel: Galileo Tucker Assigned Secondary Personnel: -- Case Physician: Demetrius Cooper MD Problems Ongoing Bloating BMI 26.0-26.9,adult BMI 27.0-27.9,adult BMI 29.0-29.9,adult Cancer associated pain Cervical lymphadenopathy Cervical spondylosis Chronic GERD Constipation due to opioid therapy 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 Diverticulosis FH: stomach cancer Former smoker GERD with apnea Glaucoma Hemorrhoids History of colon polyps Hypercholesterolemia Immunosuppression Lumbar spondylosis Lump on neck Metastasis to cervical lymph node Migraine Mild pulmonary hypertension Nausea Numbness of right hand Osteoarthritis Overweight (BMI 25.0-29.9) Pacemaker Pancreatic cyst Personal history of prostate cancer Primary hypertension PUD (peptic ulcer disease) Right flank pain, chronic RUQ pain Sleep apnea Squamous cell carcinoma of oropharynx Swollen lymph nodes Thoracic aortic ectasia Type 2 diabetes mellitus with hypercholesterolemia Urinary hesitancy Urinary incontinence without sensory awareness Vitamin D deficiency Historical BMI 30.0-30.9,adult Diarrhea Fecal urgency Irregular bowel habits Procedure/Surgical History Ablation (08/17/2023), Colonoscopy (06/14/2023), Esophagogastroduodenoscop y (04/15/2023), Esophagogastroduodenoscop y (05/20/2020), Angioplasty, Cardiac pacemaker procedure, Cataract, Cholecystectomy, Colonoscopy, Hernia repair, Prostate excision, Tonsillectomy, Vasectomy. Home Medications Albuterol (Eqv-ProAir HFA) 90 mcg/inh inhalation aerosol, See Instructions amLODIPine 5 mg Tab, 5 mg= 1 tab(s), Oral, Daily, 1 refills Aspir 81, 81 mg, Oral, Daily dorzolamide ophthalmic 2% solution, 1 drop(s), OPTH, BID Esgic 325 mg-50 mg-40 mg oral capsule, 1 cap(s), Oral, q4hr, PRN, 1 refills fentaNYL 12 mcg/hr Transderm ER Film, 1 patch(es), Topical, q72hr fluticasone Nasal 0.05 mg/inh Malcom, See Instructions furosemide 20 mg Tab, 20 mg= 1 tab(s), Oral, Daily Hc/Dph/Nystat/Lido/Fla Monsalve irbesartan 300 mg Tab, 300 mg= 1 tab(s), Oral, Daily isosorbide mononitrate, 30 mg, Oral, qAM latanoprost Opth 0.005% Janee metformin 500 mg ER Tab, 500 mg= 1 tab(s), Oral, Daily Misc DME Prescription, See Instructions Misc DME Prescription, See Instructions Misc Medication Multivitamin, Therapeutic w/ Minerals, Oral, Daily nystatin 500,000 units oral tablet olanzapine 2.5 mg Tab omeprazole 40 mg Cap-DR, See Instructions ondansetron 8 mg Dis Tab oxycodone 5 mg/5 mL oral solution Pepcid 20 mg Tab, 20 mg= 1 tab(s), Oral, Daily, 3 refills Plavix 75 mg Tab, 75 mg= 1 tab(s), Oral, Daily Potassium Chloride (Sjf-Iflf-Xic M20) 20 mEq oral tablet, extended release rosuvastatin 10 mg Tab, See Instructions, 3 refills Senna 8.6 mg oral tablet sotalol 80 mg Tab, 0.5 tab, Oral, BID SSD 1% topical cream, 1 lenin, Topical, BID tiZANidine 4 mg Tab, 4 mg= 1 tab(s), Oral, Daily zonisamide 25 mg Cap, 25 mg= 1 cap(s), Oral, BID Allergies Adhesive Bandage (Rash) Niaspan ER (Itching) Social History Alcohol - Low Risk, 11/08/2023 Current. Wine. 1-2 times per week., 04/17/2024 Substance Abuse - Denies Substance Abuse, 04/25/2020 Never., 04/17/2024 Tobacco - Denies Tobacco Use, 04/25/2020 Former smoker, quit more than 30 days ago Tobacco Use:. Never Smokeless Tobacco Use:. Cigarettes, 1.5 per day. 24 year(s). Total pack years: 36. Started age 18.0 Years. Stopped age 41 Years. Household tobacco concerns: No. Yes, 08/24/2024 Family History Heart trouble: Mother and Grandparent. Hypertension: Mother and Grandparent. Pancreatic: Other Relationship. Primary malignant neoplasm of prostate: Father. Stomach cancer: Grandparent. Thyroid disease: Grandparent. Tuberculosis: Grandparent. Screenings and Assessments 08/22/24 10:51:00 Result Name Value Comment Phone Call Monitoring Consent Agreed to continue call Phone Verification Patient Information Full name, street address and date of verified CM Program Enrollment Provides verbal consent for enrollment Goals and Interventions Care Plan Progress Note TCM#3- Spoke with patient for status update. Patient states he is currently on his way to see onco. Reports his mouth is still sore, but better. Notes he is eating the same and drinking well. Notes it is difficult swallowing pills d/t the back of his tongue being 'raw.' Patient states magic peggy (more content not included)... Normal [facility] C Urineon 09-01-2024 Bacteria identified Cx Nom (U) Microbiology PROCEDURE: Urine Culture [R1] SOURCE: U Random BODY SITE: COLLECTED DATE/TIME: 08/30/2024 10:11 EDT RECEIVED DATE/TIME: 08/30/2024 18:09 EDT START DATE/TIME: 08/30/2024 18:09 EDT FREE TEXT SOURCE: Yajaira Dunn, Yajaira Knox FINAL REPORTS Final Report [] Verified Date/Time: 09/01/2024 10:22 EDT 200 cfu/ml Mixed skin contaminants Performing Locations R1: This test was performed at: [facility], [address] [place] [address], [facility]- , , [facility] Comment on above: Performed By: #### 2 [id number] #### [facility] [address] [place] [address] Ambulatory Visit Summaryon 0 08-30-2024 Ambulatory Visit Summary Ambulatory Visit Summary BENNETTJEREMIE CEDILLO Annabelle :1940 Visit Date:08/30/2024 Ambulatory Visit Instructions Your Diagnosis Abdominal pain Urinary hesitancy Your Care Team Attending Physician - Yajaira Dunn Primary Care Physician - Demetrius Cooper MD This Is Your Medications List APAP/butalbital/caffeine (Esgic 325 mg-50 mg-40 mg oral capsule) Misc Prescription (Hc/Dph/Nystat/Lido/Fla Monsalve) Misc Prescription (Misc DME Prescription) Misc Prescription (Misc DME Prescription) Non-Formulary Medication (Misc Medication) albuterol (Albuterol (Eqv-ProAir HFA) 90 mcg/inh inhalation aerosol) amlodipine (amLODIPine 5 mg Tab) aspirin (Aspir 81) clopidogrel (Plavix 75 mg Tab) dorzolamide ophthalmic (dorzolamide ophthalmic 2% solution) famotidine (Pepcid 20 mg Tab) fentanyl (fentaNYL 12 mcg/hr Transderm ER Film) fluticasone nasal (fluticasone Nasal 0.05 mg/inh Malcom) furosemide (furosemide 20 mg Tab) irbesartan (irbesartan 300 mg Tab) isosorbide mononitrate latanoprost ophthalmic (latanoprost Opth 0.005% Janee) metformin (metformin 500 mg ER Tab) multivitamin with minerals (Multivitamin, Therapeutic w/ Minerals) nystatin (nystatin 500,000 units oral tablet) olanzapine (olanzapine 2.5 mg Tab) omeprazole (omeprazole 40 mg Cap-DR) ondansetron (ondansetron 8 mg Dis Tab) oxycodone (oxycodone 5 mg/5 mL oral solution) potassium chloride (Potassium Chloride (Dex-Wroz-Xkm M20) 20 mEq oral tablet, extended release) rosuvastatin (rosuvastatin 10 mg Tab) senna (Senna 8.6 mg oral tablet) silver sulfADIAZINE topical (SSD 1% topical cream) sotalol (sotalol 80 mg Tab) tizanidine (tiZANidine 4 mg Tab) zonisamide (zonisamide 25 mg Cap) Procedures Performed Ablation (08/17/2023), Colonoscopy (06/14/2023), Esophagogastroduodenoscop y (04/15/2023), Esophagogastroduodenoscop y (05/20/2020), Angioplasty, Cardiac pacemaker procedure, Cataract, Cholecystectomy, Colonoscopy, Hernia repair, Prostate excision, Tonsillectomy, Vasectomy. Discharge Vitals Temperature (Tympanic) 36.8 ???C Heart Rate (Peripheral) 60 Respiratory Rate 18 Blood Pressure 118/76 Height 160 cm Height 63 in Weight 68.7 kg Weight 151.457 lb BMI 26.84 What to do next Scheduled Follow-Up Appointments Wednesday 2:30 PM EDT With: Where: [address] [address]- Wednesday 3:20 PM EDT With: Allison CASON, Demetrius Rosa Where: [address] [address]- Medications What How Much When Instructions Unchanged [...] 1 Tablets By Mouth Every day Unchanged fentanyl (fentaNYL 12 mcg/ hr Transderm ER Film) 1 Patches Topical Every 72 hours Unchanged fluticasone nasal (fluticasone Nasal 0.05 mg/ inh Malcom) See instructions USE 1 SPRAY IN BOTH NOSTRILS TWICE DAILY Unchanged furosemide (furosemide 20 mg Tab) 1 Tablets By Mouth Every day Unchanged irbesartan (irbesartan 300 mg Tab) 1 Tablets By Mouth Every day Unchanged isosorbide mononitrate 30 Milligram By Mouth Once a day (in the morning) Unchanged latanoprost ophthalmic (latanoprost Opth 0.005% Janee) 10 mL, 0 Refill(s) Unchanged metformin (metformin 500 mg ER Tab) 1 Tablets By Mouth Every day Unchanged Misc Prescription (Hc/ Dph/ Nystat/ Lido/ [place] Monsalve) Swish and swallow with 10ml by mouth four times daily as needed FOR mucositis Unchanged Misc Prescription (Misc DME Prescription) See instructions one touch ultra lancets Use to test sugars once a day Unchanged Misc Prescription (Misc DME Prescription) See instructions one touch ultra test strips test sugars once a day Unchanged multivitamin with minerals (Multivitamin, Therapeutic w/ Minerals) By Mouth Every day Unchanged Non-Formulary Medication (Misc Medication) Transdermal Therapeutics up to four times per day: Meloxicam 0.5%/ Doxepin 3%/ Amantidine 3%/ Dextromethorphan 2%/ Lidocaine 2% Unchanged nystatin (nystatin 500,000 units oral tablet) TAKE 1 TABLET BY MOUTH FOUR TIMES DAILY FOR 14 DAYS Unchanged olanzapine (olanzapine 2.5 mg Tab) TAKE 1 TABLET BY MOUTH TWICE DAILY Unchanged omeprazole (omeprazole 40 mg Cap-DR) See instructions TAKE 1 CAPSULE BY MOUTH DAILY Unchanged ondansetron (onda (more content not included)... Normal [facility] Medicine Office/Clini c Noteon 08-30-2024 Family Medicine Office/Clinic Note Family Medicine Office/Clinic Note Chief Complaint Acute Visit HPI Staff Pt presents today for acute visit. Lower abdominal pain & decreased urinary stream for the past week. Denies pain & burning with urination. States he does have artificial urinary sphincter. History of Present Illness pt presents today for low abdominal pain and decreased urinary stream Review of Systems PHQ Score Initial Depression Screen Score: 0 SCORE Physical Exam Vitals & Measurements T: 36.8 ???C(Tympanic) HR: 60(Peripheral) RR: 18 BP: 118/76 SpO2: 93% HT: 160 cm HT: 63 in WT: 151.457 lb WT: 68.7 kg BMI: 26.84 General: alert, no acute distress ENMT: oral mucosa moist, no pharyngeal erythema or exudate Cardiovascular: regular rate and rhythm, normal peripheral perfusion Respiratory: Lungs CTA, respirations non labored Extremities: no deformity, no trauma Neurological: oriented x 4, LOC appropriate for age, CN II-XII intact, motor strength equal & normal bilaterally, speech normal Assessment/Plan 1. Abdominal pain (R10.9: Unspecified abdominal pain) pt c/o lower abdominal cramping and has had diarrhea for a week. he recently finished chemo and radiation. and just finished an antibiotic for pneumonia. Ordered: Urine Culture Urnls Dip Stick Auto w/o Microscopy POC 65304 2. Urinary hesitancy (R39.11: Hesitancy of micturition) u/a negative for nitrites and leuks. but looks like he is dehydrated. will send for culture. encouraged him to try to drink water throughout the day. his states he isn't eating or drinking much because his throat and back of his tongue hurt so much from radiation. discussed just taking sips of water every 20-30 minutes to help get him rehydrated. mucous membranes are still moist. so I don't feel he needs IV hydration. pt does not have a prostate so I don't feel that is causing the urinary hesitancy. instructed to take him to ER if he becomes weak, lethargic, or is no urinating to be monitored for dehydration. 3. BMI 26.0-26.9,adult (Z68.26: Body mass index [BMI] 26.0-26.9, adult) pt does not have an appetite due to recent chemo treatment. is also having severe pain of throat and tongue due to radiation Follow-up No qualifying data available Problem List/Past Medical History Ongoing Bloating BMI 26.0-26.9,adult BMI 27.0-27.9,adult BMI 29.0-29.9,adult Cancer associated pain Cervical lymphadenopathy Cervical spondylosis Chronic GERD Constipation due to opioid therapy 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 Diverticulosis FH: stomach cancer Former smoker GERD with apnea Glaucoma Hemorrhoids History of colon polyps Hypercholesterolemia Immunosuppression Lumbar spondylosis Lump on neck Metastasis to cervical lymph node Migraine Mild pulmonary hypertension Nausea Numbness of right hand Osteoarthritis Overweight (BMI 25.0-29.9) Pacemaker Pancreatic cyst Personal history of prostate cancer Primary hypertension PUD (peptic ulcer disease) Right flank pain, chronic RUQ pain Sleep apnea Squamous cell carcinoma of oropharynx Swollen lymph nodes Thoracic aortic ectasia Type 2 diabetes mellitus with hypercholesterolemia Urinary hesitancy Urinary incontinence without sensory awareness Vitamin D deficiency Historical BMI 30.0-30.9,adult Diarrhea Fecal urgency Irregular bowel habits Procedure/Surgical History Ablation (08/17/2023), Colonoscopy (06/14/2023), Esophagogastroduodenoscop y (04/15/2023), Esophagogastroduodenoscop y (05/20/2020), Angioplasty, Cardiac pacemaker procedure, Cataract, Cholecystectomy, [...] 1 cap(s), Oral, q4hr, PRN, 1 refills fentaNYL 12 mcg/hr Transderm ER Film, 1 patch(es), Topical, q72hr fluticasone Nasal 0.05 mg/inh Malcom, See Instructions furosemide 20 mg Tab, 20 mg= 1 tab(s), Oral, Daily Hc/Dph/Nystat/Lido/Fla Monsalve irbesartan 300 mg Tab, 300 mg= 1 tab(s), Oral, Daily isosorbide mononitrate, 30 mg, Oral, qAM latanoprost Opth 0.005% Janee metformin 500 mg ER Tab, 500 mg= 1 tab(s), Oral, Daily Misc DME Prescription, See Instructions Misc DME Prescription, See Instructions Misc Medication Multivitamin, Therapeutic w/ Minerals, Oral, Daily nystatin 500,000 units oral tablet olanzapine 2.5 mg Tab omeprazole 40 mg Cap-DR, See Instructions ondansetron 8 mg Dis Tab oxycodone 5 mg/5 mL oral solution Pepcid 20 mg Tab, 20 mg= 1 tab(s), Oral, Daily, 3 refills Plavix 75 mg Tab, 75 mg= 1 tab(s), Oral, Daily Potassium Chloride (Eq (more content not included)... Normal [facility] Comment on above: Result Comment: Elec tronically Signed By: Yajaira Dunn\.br\Date and Time Signed: 08/30/24 10:45 EDT Family Medicine Office/Clini c Noteon 08-24-2024 Family Medicine Office/Clinic Note Family Medicine Office/Clinic Note Chief Complaint TCM follow up The patient presents with concerns related to chemotherapy and radiation treatment for oropharyngeal carcinoma. HPI Staff Pt presents today for TCM follow up Hospital: [facility] Visit date: 08/19/24 Symptoms the patient presented with: fever Current concerns: None at this time. Has started chemo & radiation since last encounter w/Dr Cooper. History of Present Illness Patient presents for hospital follow-up for fever and aspiration pneumonitis. 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 On August 20 the patient started having fever and weakness and he went to the ER where he was found to have a mildly productive cough x-ray showed pulmonary infiltrates. Patient was started on broad-spectrum antibiotics. Patient's fever resolved. Because of the cancer the patient is having dysphagia and likely aspirated. Patient was discharged home on antibiotic therapy. 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 Despite a recent bout of aspiration pneumonia that required hospitalization and antibiotics, he has recovered from the condition. 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 Main concerns include a sore throat impacting nutritional intake conducive to weight gain, and treatment-related constipation due to opioid medication. Review of Systems PHQ Score Initial Depression Screen Score: 0 SCORE Physical Exam Vitals & Measurements T: 36.9 ???C(Tympanic) HR: 60(Peripheral) RR: 18 BP: 110/76 SpO2: 96% HT: 63 in HT: 160 cm WT: 157.41 lb WT: 71.4 kg BMI: 27.89 General: alert, no acute distress, temperature 100.6???F ENMT: oral mucosa moist, throat sore Cardiovascular: Regular rate and rhythm, normal peripheral perfusion Respiratory: Lungs clear to auscultation, respirations non labored Extremities: no deformity, no trauma, Skin parr noted for radiation on the neck. Neurological: oriented x 4, level of consciousness appropriate for age, CN II-XII intact, motor strength equal & normal bilaterally, speech normal Abdomen: Soft, Non-tender, Non-distended, + Bowel sounds Assessment/Plan 1. Hospital discharge follow-up (Z09: Encounter for follow-up examination after completed treatment for conditions other than malignant neoplasm) Reviewed discharge summary. Reviewed TCM calls. Ordered: Body Mass Index (BMI) documented 3008F Cardiac Rehab - Ambulatory Referral Current tobacco non-user 1036F Depression Screening Negative 3352F Discharge medications reconciled with current medications in outpatient record 1111F Influenza immunization status assessed 1030F Medication list documented in medical record 1159F Most recent diastolic blood pressure <80 mm Hg 3078F Patient screen for fall risk: no falls in last year or 1 fall with no injury in last year 1101F Review of all meds by a prescribing practitioner or clinical pharmacist documented in EHR 1160F Systolic BP <130 mm Hg (Most Recent) 3074F TCM [facility] day disch 57839 2. Aspiration pneumonia (J69.0: Pneumonitis due to inhalation of food and vomit) Patient improved after antibiotic treatment for aspiration pneumonia. Monitor respiratory status and nutritional challenges affecting swallowing. Ordered: Cardiac Rehab - Ambulatory Referral TCM [facility] day disch [id number] 3. 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 Plan imaging for therapy assessment within three months. Focus on resolving sore throat impacting nutrition. Ordered: Cardiac Rehab - Ambulatory Referral TCM [facility] 7 day disch 73688 4. 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 Schedule appropriate follow-up tests to monitor oncologic treatment outcomes. Ordered: Cardiac Rehab - Ambulatory Referral TCM [facility] 7 day disch 75928 5. Immunosuppression (D84.9: Immunodeficiency, unspecified) Continue to see oncology Ordered: Cardiac Rehab - Ambulatory Referral TCM [facility] 7 day disch 05148 6. 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 Evaluate non-opioid pain relief methods if feasible. Ordered: TCM [facility] 7 day disch [id number] 7. Nausea (R11.0: Nausea) NO issues at this time. Ordered: TCM [facility] 7 day disch 45491 8. BMI 27.0-27.9,adult (Z68.27: Body mass index [BMI] 27.0-27.9, adult) BMI education adde (more content not included)... Normal [facility] Comment on above: Result Comment: Elec tronically Signed By: Demetrius Cooper MD\.br\Date and Time Signed: 08/24/24 09:00 EDT Pre-Visit Planningon 025 Pre-Visit Planning Pre-Visit Planning From: Bobbi Hall To: Demetrius Cooper MD; Sent: 08/23/2024 16:27:25 EDT Subject: Pre-Visit Planning Due Date/Time: 08/23/2024 16:27:00 EDT Caller Name: JEREMIE BENNETT; Caller Number: , M De Dr. Cooper. During a pre-visit planning chart review, I noted the following documentation in the medical record: Current Problem List: CAD, HTN, Sleep apnea, Thoracic aortic ectasia, Tobacco use, and DM with HLD. Current Medication List: albuterol, amlodipine, aspirin, clopidogrel, furosemide, irbesartan, metformin, rosuvastatin, and sotalol. 05/09/2024 Echo: Mild pulmonary hypertension. RVSP 39 mmHg. Based on your medical judgment, can you please clarify if the following condition/complication is present? I can update the Chronic Problem List with your response if you would like. -Mild pulmonary hypertension -Other (please specify): In responding to this request, please exercise your independent professional judgment. The fact that a question is asked does not imply that any particular answer is desired or expected. If you have any questions, please feel free to contact me at extension [phone]. Thank you! Bobbi Hall LPN Clinical Electronic Console Display Operator [place] [id number] Extension: [phone] [email or web address] From: Demetrius Cooper MD To: Bobbi Hall; Sent: 08/24/2024 11:34:18 EDT Subject: RE: Pre-Visit Planning Caller Name: JEREMIE BENNETT; Caller Number: , Please add Normal [facility] Population Healthon 08-23-19 [facility] Case Information Case Priority: None Programs: -- Referral Source: Senior Marketing Coordinator Referral Reason: Care coordination Case Type: Transition Care Management Risk Score: -- Case Status: Enrolled (August 22, 2024) Date Assigned: August 22, 2024 Assigned By: Galileo Tucker Date Enrolled: August 22, 2024 Assigned Primary Personnel: Galileo Tucker Assigned Secondary Personnel: -- Case Physician: Demetrius Cooper MD Problems Ongoing Bloating BMI 29.0-29.9,adult Cervical lymphadenopathy Cervical spondylosis Chronic GERD 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 Diabetic autonomic neuropathy [...] habits Procedure/Surgical History Ablation (08/17/2023), Colonoscopy (06/14/2023), Esophagogastroduodenoscop y (04/15/2023), Esophagogastroduodenoscop y (05/20/2020), Angioplasty, Cardiac pacemaker procedure, Cataract, Cholecystectomy, Colonoscopy, Hernia repair, Prostate excision, Tonsillectomy, Vasectomy. Home Medications Albuterol (Eqv-ProAir HFA) 90 mcg/inh inhalation aerosol, See Instructions amLODIPine 5 mg Tab, 5 mg= 1 tab(s), Oral, Daily, 1 refills Aspir 81, 81 mg, Oral, Daily cefpodoxime 200 mg Tab, 200 mg= 1 tab(s), Oral, q12hr dorzolamide ophthalmic 2% solution, 1 drop(s), OPTH, BID Esgic 325 mg-50 mg-40 mg oral capsule, 1 cap(s), Oral, q4hr, PRN, 1 refills fentaNYL 12 mcg/hr Transderm ER Film, 1 patch(es), Topical, q72hr fluticasone Nasal 0.05 mg/inh Malcom, See Instructions furosemide 20 mg Tab, 20 mg= 1 tab(s), Oral, Daily Hc/Dph/Nystat/Lido/Fla Monsalve irbesartan 300 mg Tab, 300 mg= 1 tab(s), Oral, Daily isosorbide mononitrate, 30 mg, Oral, qAM latanoprost Opth 0.005% Janee metformin 500 mg ER Tab, 500 mg= 1 tab(s), Oral, Daily Misc DME Prescription, See Instructions Misc DME Prescription, See Instructions Misc Medication Multivitamin, Therapeutic w/ Minerals, Oral, Daily nystatin 500,000 units oral tablet olanzapine 2.5 mg Tab omeprazole 40 mg Cap-DR, See Instructions ondansetron 8 mg Dis Tab oxycodone 5 mg/5 mL oral solution Pepcid 20 mg Tab, 20 mg= 1 tab(s), Oral, Daily, 3 refills Plavix 75 mg Tab, 75 mg= 1 tab(s), Oral, Daily rosuvastatin 10 mg Tab, See Instructions, 3 refills Senna 8.6 mg oral tablet sotalol 80 mg Tab, 0.5 tab, Oral, BID SSD 1% topical cream, 1 lenin, Topical, BID tiZANidine 4 mg Tab, 4 mg= 1 tab(s), Oral, Daily zonisamide 25 mg Cap, 25 mg= 1 cap(s), Oral, BID Allergies Adhesive Bandage (Rash) Niaspan ER (Itching) Social History Alcohol - Low Risk, 11/08/2023 Current. Wine. 1-2 times per week., 04/17/2024 Substance Abuse - Denies Substance Abuse, 04/25/2020 Never., 04/17/2024 Tobacco - Denies Tobacco Use, 04/25/2020 Former smoker, quit more than 30 days ago Tobacco Use:. Never Smokeless Tobacco Use:. Cigarettes, 1.5 per day. 24 year(s). Total pack years: 36. Started age 18.0 Years. Stopped age 41 Years. Household tobacco concerns: No. Yes, 04/17/2024 Former smoker, quit more than 30 days ago Tobacco Use:., 04/17/2024 Family History Heart trouble: Mother and Grandparent. Hypertension: Mother and Grandparent. Pancreatic: Other Relationship. Primary malignant neoplasm of prostate: Father. Stomach cancer: Grandparent. Thyroid disease: Grandparent. Tuberculosis: Grandparent. Screenings and Assessments 08/22/24 10:51:00 Result Name Value Comment Phone Call Monitoring Consent Agreed to continue call Phone Verification Patient Information Full name, street address and date of verified Program Enrollment Provides verbal consent for enrollment Goals and Interventions Care Plan Progress Note Admit Date: 08/20/24 [facility] Date of Discharge: 08/21/24 Follow-up appointment scheduled? yes, Dr. Cooper TCM f/u 08/24/24 at 0745 Did you understand your discharge instructions? yes Are you able to follow them? yes Did you receive new medications? yes, cefpodoxime 200 mg BID x 3 days Have you filled the Rx's? 'yes, took first dose last night' Are you taking them as prescribed? yes Are you having difficulty eating or swallowing your pills? some discomfort d/t effects of radiation making it difficult to swallow Ar (more content not included)... Normal [facility] Alanine aminotransferase [En zymatic activity/volume] in Serum or PlasmaOrdered By: Jaiden Nance on 08-21-2024 ALT [Catalytic activity/Vol] Alanine aminotransferase [Enzymatic activity/volume] in Serum or Plasma 7-52 [facility] Albumin [Mass/volume] in Ser um or Plasma by Bromocresol green (BCG) dye binding methoOrdered By: Jaiden Nance on 08-21-2024 Albumin BCG dye [Mass/Vol] Albumin [Mass/volume] in Serum or Plasma by Bromocresol green (BCG) dye binding metho Low 3.5-5.7 [facility] Alkaline phosphatase [Enzyma tic activity/volume] in Serum or PlasmaOrdered By: Jaiden Nance on 08-21-2024 ALP [Catalytic activity/Vol] Alkaline phosphatase [Enzymatic activity/volume] in Serum or Plasma 34-104 [facility] Aspartate aminotransferase [ Enzymatic activity/volume] in Serum or PlasmaOrdered By: Jaiden Nance on 08-21-2024 AST [Catalytic activity/Vol] Aspartate aminotransferase [Enzymatic activity/volume] in Serum or Plasma 13-39 [facility] Basophils Auto (Bld) [#/Vol] Ordered By: Jaiden Nance on 08-21-2024 Basophils (Bld) [#/Vol] Automated basophil count 0.0-0.2 [facility] Basophils/100 WBC Auto (Bld) Ordered By: Jaiden Nance on 08-21-2024 Basophils/100 WBC (Bld) Automated basophil % . [facility] Bilirubin.total [Mass/volume ] in Serum or PlasmaOrdered By: Jaiden Nance on 08-21-2024 Bilirubin [Mass/Vol] Bilirubin.total [Mass/volume] in Serum or Plasma 0.3-1.0 [facility] CT chest wo roxannaon 08-21-2024 CT chest wo [facility] [address] [place] [id number] CT Scan Report Signed Patient: Jeremie Bennett MR#: [id number] : 1940 Acct:[id number] Age/Sex: 83 / M ADM Date: 08/20/24 Loc: Room: 5R6857-8 Type: ADM IN Attending Dr: Jaiden Nance MD Copies to: Jaiden Nance MD Ordering Provider: Jaiden Nance MD Date of Service: 08/20/24 CT/CT chest wo con: Fever, rule out pneumonia CT Chest without contrast TECHNIQUE: Axial imaging with 2-D reconstruction. The CT exam was performed using one or more the following dose reduction techniques: Automated exposure control, adjustment of the MA and/or Kv according to patient size, or use of the iterative reconstruction technique. History: Cough and fever. History of throat cancer. Recent chemotherapy and radiation. COMPARISON: None THYROID: Unremarkable TRACHEA AND BRONCHI: Patent ESOPHAGUS: Unremarkable. HEART: Cardiomegaly PERICARDIAL EFFUSION: None CORONARY ARTERY CALCIFICATION: Present MEDIASTINUM: No adenopathy. No pneumoperitoneum. No mediastinal hematoma. PULMONARY ADAM: No hilar mass or adenopathy is seen. THORACIC AORTA Unremarkable LUNG NODULE subcentimeter groundglass pulmonary nodule left lower lobe. May represent inflammatory findings. LUNGS: Mild atelectasis. PLEURAL EFFUSION: None PNEUMOTHORAX: No pneumothorax seen. CHEST WALL: No abnormality AXILLA:Unremarkable BONY STRUCTURES Intact UPPER ABDOMEN: Cholecystectomy CT/CT chest wo con IMPRESSION: Continued basilar atelectasis. Subcentimeter groundglass nodular density left lower lobe. Impression dictated by: Christian Melton M.D.08/21/2024 5:58 AM Dictation Location: [place] [address] Transcribed By: [facility] 08/21/24 0558 Dictated By: Christian Melton DO 08/21/24 0555 Signed By: 08/21/24 0558 Normal [facility] Calcium [Mass/volume] in Ser um or PlasmaOrdered By: Jaiden Nance on 08-21-2024 Calcium [Mass/Vol] Calcium [Mass/volume ] in Serum or Plasma Low 8.6-10.3 [facility] Carbon dioxide, total [Moles /volume] in Serum or PlasmaOrdered By: Jaiden Nance on 08-21-2024 CO2 [Moles/Vol] Carbon dioxide, tota l [Moles/volume] in Serum or Plasma 21.0-31.0 [facility] Chloride [Moles/volume] in S stephanie or PlasmaOrdered By: Jaiden Nance on 08-21-2024 Chloride [Moles/Vol] Chloride [Moles/vol ume] in Serum or Plasma High 98-107 [facility] Complete Blood Count Auto Di ffon 08-21-2024 Basophils (Bld) [#/Vol] 0.0 10*3/uL Normal 0.0-0.2 [facility] Comment on above: Result Comment: PERF ORMED BY: [place] [address] PATHOLOGIST MAINTENANCE PIPEFITTER HEBER SHANNON M.D. Performed By: #### C MP, CBC #### [address] Basophils/100 WBC (Bld) 0.6 % Normal . [facility] Comment on above: Performed By: #### C MP, CBC #### [address] Eosinophils (Bld) [#/Vol] 0.1 10*3/uL Normal 0.0-0.45 [facility] Comment on above: Performed By: #### C MP, CBC #### [address] Eosinophils/100 WBC (Bld) 1.0 % Normal . [facility] Comment on above: Performed By: #### C MP, CBC #### [address] Erythrocyte distribution width (RBC) [Ratio] 14.8 % Normal 12.0-14.8 [facility] Comment on above: Performed By: #### C MP, CBC #### [address] Hematocrit (Bld) [Volume fraction] 30.5 % Low 38.8-50.0 [facility] Comment on above: Performed By: #### C MP, CBC #### [address] Hemoglobin (Bld) [Mass/Vol] 10.4 g/dL Low 13.0-17.0 [facility] Comment on above: Performed By: #### C MP, CBC #### [facility] [address] Lymphocytes (Bld) [#/Vol] 0.6 10*3/uL Low 1.00-4.8 [facility] Comment on above: Performed By: #### C MP, CBC #### [address] Lymphocytes/100 WBC (Bld) 9.0 % Normal . [facility] Comment on above: Performed By: #### C MP, CBC #### [address] MCH (RBC) [Entitic mass] 31.3 pg Normal 27.5-35.2 [facility] Comment on above: Performed By: #### C MP, CBC #### [address] MCV (RBC) [Entitic vol] 91.6 fL Normal 83.5-101 [facility] Comment on above: Performed By: #### C MP, CBC #### [address] Mean Corpuscular HGB Conc 34.2 g/dL Normal 32.5-35.6 [facility] Comment on above: Performed By: #### C MP, CBC #### [place] [address] [place] Monocytes (Bld) [#/Vol] 0.8 10*3/uL Normal 0.0-0.8 [facility] Comment on above: Performed By: #### C MP, CBC #### [facility] [address] [place] [address] [place] Monocytes/100 WBC (Bld) 13.6 % Normal . [facility] Comment on above: Performed By: #### C MP, CBC #### [address] Neutrophils (Bld) [#/Vol] 4.7 10*3/uL Normal 1.8-7.7 [facility] Comment on above: Performed By: #### C MP, CBC #### [facility] [address] Neutrophils/100 WBC (Bld) 75.8 % Normal . [facility] Comment on above: Performed By: #### C MP, CBC #### [facility] [address] NRBC% 0.1 /100{WBC} Normal 0-0.5 [facility] Comment on above: Performed By: #### C MP, CBC #### [address] Platelet mean volume (Bld) [Entitic vol] 8.2 fL Normal 6.6-10.1 [facility] Comment on above: Performed By: #### C MP, CBC #### [place] [address] [place] Platelets (Bld) [#/Vol] 190 10*3/uL Normal 150-450 [facility] Comment on above: Performed By: #### C MP, CBC #### [place] [address] [place] RBC (Bld) [#/Vol] 3.33 10*6/uL Low 3.90-5.60 [facility] Comment on above: Performed By: #### C MP, CBC #### [address] WBC (Bld) [#/Vol] 6.2 10*3/uL Normal 4.1-10.5 [facility] Comment on above: Performed By: #### C MP, CBC #### [address] Comprehensive Metabolic Pane obdulio 08-21-2024 Albumin [Mass/Vol] 2.9 g/dL Low 3.5-5.7 [facility] Comment on above: Performed By: #### C MP, CBC #### [address] Albumin/Globulin [Mass ratio] 1.2 {ratio} Normal [facility] Comment on above: Performed By: #### C MP, CBC #### [address] ALP [Catalytic activity/Vol] 52 U/L Normal 34-104 [facility] Comment on above: Performed By: #### C MP, CBC #### [address] ALT [Catalytic activity/Vol] 14 U/L Normal 7-52 [facility] Comment on above: Performed By: #### C MP, CBC #### [address] Anion gap [Moles/Vol] 9.1 mmol/L Normal 6.0-15.0 [facility] Comment on above: Performed By: #### C MP, CBC #### [address] AST [Catalytic activity/Vol] 15 U/L Normal 13-39 [facility] Comment on above: Performed By: #### C MP, CBC #### [address] Bilirubin [Mass/Vol] 0.6 mg/dL Normal 0.3-1.0 [facility] Comment on above: Performed By: #### C MP, CBC #### [address] Calcium [Mass/Vol] 8.2 mg/dL Low 8.6-10.3 [facility] Comment on above: Performed By: #### C MP, CBC #### [place] [address] [place] Chloride [Moles/Vol] 108 mmol/L High 98-107 [facility] Comment on above: Performed By: #### C MP, CBC #### [address] CO2 [Moles/Vol] 24.2 mmol/L Normal 21.0-31.0 [facility] Comment on above: Performed By: #### C MP, CBC #### [address] Creatinine [Mass/Vol] 0.75 mg/dL Normal 0.70-1.30 [facility] Comment on above: Performed By: #### C MP, CBC #### [address] Creatinine Clr Calc Pharmacy 59.79 Normal [facility] Comment on above: Performed By: #### C MP, CBC #### [place] [address] [place] GFR/1.73 sq M.predicted MDRD (S/P/Bld) [Vol rate/Area] mL/min/{1.73_m2} Normal [facility] Comment on above: Performed By: #### C MP, CBC #### [address] Globulin (S) [Mass/Vol] 2.4 g/dL Normal [facility] Comment on above: Performed By: #### C MP, CBC #### [address] Glucose [Mass/Vol] 94 mg/dL Normal 70-100 [facility] Comment on above: Result Comment: [facility] [place] Glucose Reference Range is dependent on time and content of last meal. Glucose of more than 200 mg/dL in a nonstressed, ambulatory subject supports the diagnosis of Diabetes Mellitus. ADA recommended reference range Performed By: #### C MP, CBC #### [address] Potassium [Moles/Vol] 3.3 mmol/L Low 3.5-5.1 [facility] Comment on above: Performed By: #### C MP, CBC #### [address] Protein [Mass/Vol] 5.3 g/dL Low 6.4-8.9 [facility] Comment on above: Performed By: #### C MP, CBC #### [place] [address] [place] Sodium [Moles/Vol] 138 mmol/L Normal 136-145 [facility] Comment on above: Performed By: #### C MP, CBC #### [facility] [address] Urea nitrogen [Mass/Vol] 10 mg/dL Normal 7-25 [facility] Comment on above: Performed By: #### C MP, CBC #### [facility] [address] [place] [address] [place] Creatinine [Mass/volume] in Serum or PlasmaOrdered By: Jaiden Nance on 08-21-2024 Creatinine [Mass/Vol] Creatinine [Mass/v olume] in Serum or Plasma 0.70-1.30 [facility] Eosinophils Auto (Bld) [#/Vo l]Ordered By: Jaiden Nance on 08-21-2024 Eosinophils (Bld) [#/Vol] Automated eosinophil count 0.0-0.45 [facility] Eosinophils/100 WBC Auto (Bl d)Ordered By: Jaiden Nance on 08-21-2024 Eosinophils/100 WBC (Bld) Automated eosinophil % . [facility] Erythrocyte distribution wid th Auto (RBC) [Ratio]Ordered By: Jaiden Nance on 08-21-2024 Erythrocyte distribution width (RBC) [Ratio] Erythrocyte distribution width [Ratio] by Automated count 12.0-14.8 [facility] Globulin Calc (S) [Mass/Vol] Ordered By: Jaiden Nance on 08-21-2024 Globulin (S) [Mass/Vol] Serum globulin measurement by calculation (mass/volume) [facility] Glucose [Mass/volume] in Ser um or PlasmaOrdered By: Jaiden Nance on 08-21-2024 Glucose [Mass/Vol] Glucose [Mass/volume ] in Serum or Plasma 70-100 [facility] Comment on above: ADA recommended refe rence rangeRandom Glucose Reference Range is dependent on time and content of last meal. Glucose of more than 200 mg/dL in a nonstressed, ambulatory subject supports the diagnosis of Diabetes Mellitus. Hematocrit Auto (Bld) [Volum e fraction]Ordered By: Jaiden Nance on 08-21-2024 Hematocrit (Bld) [Volume fraction] Hematocrit [Volume Fraction] of Blood by Automated count Low 38.8-50.0 [facility] Hemoglobin [Mass/volume] in BloodOrdered By: Jaiden Nance on 08-21-2024 Hemoglobin (Bld) [Mass/Vol] Hemoglobin [Mass/volume] in Blood Low 13.0-17.0 [facility] Leukocytes [#/volume] correc suzy for nucleated erythrocytes in Blood by Automated counOrdered By: Jaiden Nance on 08-21-2024 WBC corrected for nucl RBC Auto (Bld) [#/Vol] Leukocytes [#/volume] corrected for nucleated erythrocytes in Blood by Automated coun 4.1-10.5 [facility] Lymphocytes Auto (Bld) [#/Vo l]Ordered By: Jaiden Nance on 08-21-2024 Lymphocytes (Bld) [#/Vol] Lymphocytes [#/volume] in Blood by Automated count Low 1.00-4.8 [facility] Lymphocytes/100 WBC Auto (Bl d)Ordered By: Jaiden Nance on 08-21-2024 Lymphocytes/100 WBC (Bld) Lymphocytes/100 leukocytes in Blood by Automated count . [facility] MCH Auto (RBC) [Entitic mass ]Ordered By: Jaiden Nance on 08-21-2024 MCH (RBC) [Entitic mass] MCH [Entitic mass] by Automated count 27.5-35.2 [facility] MCHC Auto (RBC) [Mass/Vol]Or dered By: Jaiden Nance on 08-21-2024 MCHC (RBC) [Mass/Vol] MCHC [Mass/volume] by Automated count 32.5-35.6 [facility] MCV Auto (RBC) [Entitic vol] Ordered By: Jaiden Nance on 08-21-2024 MCV (RBC) [Entitic vol] MCV [Entitic volume] by Automated count 83.5-101 [facility] Magnesiumon 08-21-2024 Magnesium [Mass/Vol] 1.8 mg/dL Low 1.9-2.7 [facility] Comment on above: Result Comment: PERF ORMED BY: [facility] [address] [place] [address] PATHOLOGIST MAINTENANCE PIPEFITTER HEBER SHANNON M.D. Performed By: #### C MP, CBC #### [address] Magnesium [Mass/volume] in S stephanie or PlasmaOrdered By: Jaiden Nance on 08-21-2024 Magnesium [Mass/Vol] Magnesium [Mass/vol ume] in Serum or Plasma Low 1.9-2.7 [facility] Monocytes Auto (Bld) [#/Vol] Ordered By: Jaiden Nance on 08-21-2024 Monocytes (Bld) [#/Vol] Automated blood monocyte count 0.0-0.8 [facility] Monocytes/100 WBC Auto (Bld) Ordered By: Jaiden Nance on 08-21-2024 Monocytes/100 WBC (Bld) Automated monocyte % . [facility] Neutrophils Auto (Bld) [#/Vo l]Ordered By: Jaiden Nance on 08-21-2024 Neutrophils (Bld) [#/Vol] Neutrophils [#/volume] in Blood by Automated count 1.8-7.7 [facility] Neutrophils/100 WBC Auto (Bl d)Ordered By: Jaiden Nance on 08-21-2024 Neutrophils/100 WBC (Bld) Automated neutrophil % . [facility] No Panel InformationOrdered By: Jaiden Nance on 08-21-2024 Estimated GFR (CKD-EPI) > 60.0 mL/Min [facility] Creatinine Clearance (Chem 59.79 [facility] Nucleated erythrocytes [Pres ence] in Blood by Automated countOrdered By: Jaiden Nance on 08-21-2024 Nucleated RBC Auto Ql (Bld) Nucleated erythrocytes [Presence] in Blood by Automated count 0-0.5 [facility] Platelet mean volume Auto (B ld) [Entitic vol]Ordered By: Jaiden Nance on 08-21-2024 Platelet mean volume (Bld) [Entitic vol] Platelet mean volume [Entitic volume] in Blood by Automated count 6.6-10.1 [facility] Platelets Auto (Bld) [#/Vol] Ordered By: Jaiden Nance on 08-21-2024 Platelets (Bld) [#/Vol] Platelets [#/volume] in Blood by Automated count 150-450 [facility] Potassium [Moles/volume] in Serum or PlasmaOrdered By: Jaiden Nance on 08-21-2024 Potassium [Moles/Vol] Potassium [Moles/v olume] in Serum or Plasma Low 3.5-5.1 [facility] Protein [Mass/volume] in Ser um or PlasmaOrdered By: Jaiden Nance on 08-21-2024 Protein [Mass/Vol] Protein [Mass/volume ] in Serum or Plasma Low 6.4-8.9 [facility] RBC Auto (Bld) [#/Vol]Ordere d By: Jaiden Nance on 08-21-2024 RBC (Bld) [#/Vol] Erythrocytes [#/volu me] in Blood by Automated count Low 3.90-5.60 [facility] Serum or plasma albumin/glob ulin mass ratioOrdered By: Jaiden Nance on 08-21-2024 Albumin/Globulin [Mass ratio] Serum or plasma albumin/globulin mass ratio [facility] Serum or plasma anion gap de terminationOrdered By: Jaiden Nance on 08-21-2024 Anion gap [Moles/Vol] Serum or plasma an ion gap determination 6.0-15.0 [facility] Sodium [Moles/volume] in Ser um or PlasmaOrdered By: Jaiden Nance on 08-21-2024 Sodium [Moles/Vol] Sodium [Moles/volume ] in Serum or Plasma 136-145 [facility] Urea nitrogen [Mass/volume] in Serum or PlasmaOrdered By: Jaiden Nance on 08-21-2024 Urea nitrogen [Mass/Vol] Urea nitrogen [Mass/volume] in Serum or Plasma 7-25 [facility] WBC Auto (Bld) [#/Vol]Ordere d By: Jaiden Nance on 08-21-2024 WBC (Bld) [#/Vol] Leukocytes [#/volume ] in Blood by Automated count 4.1-10.5 [facility] Alanine aminotransferase [En zymatic activity/volume] in Serum or PlasmaOrdered By: Louie Marrero on 04-06-2025 ALT [Catalytic activity/Vol] Alanine aminotransferase [Enzymatic activity/volume] in Serum or Plasma 7-52 [facility] Albumin [Mass/volume] in Ser um or Plasma by Bromocresol green (BCG) dye binding methoOrdered By: Louie Marrero on 08-20-2024 Albumin BCG dye [Mass/Vol] Albumin [Mass/volume] in Serum or Plasma by Bromocresol green (BCG) dye binding metho Low 3.5-5.7 [facility] Alkaline phosphatase [Enzyma tic activity/volume] in Serum or PlasmaOrdered By: Louie Marrero on 08-20-2024 ALP [Catalytic activity/Vol] Alkaline phosphatase [Enzymatic activity/volume] in Serum or Plasma 34-104 [facility] Appearance of UrineOrdered B y: Louie Marrero on 08-20-2024 Appearance (U) Urine appearance Clear [facility] Aspartate aminotransferase [ Enzymatic activity/volume] in Serum or PlasmaOrdered By: Louie Marrero on 08-20-2024 AST [Catalytic activity/Vol] Aspartate aminotransferase [Enzymatic activity/volume] in Serum or Plasma 13-39 [facility] Basophils Auto (Bld) [#/Vol] Ordered By: Louie Marrero on 08-20-2024 Basophils (Bld) [#/Vol] Automated basophil count 0.0-0.2 [facility] Basophils/100 WBC Auto (Bld) Ordered By: Louie Marrero on 08-20-2024 Basophils/100 WBC (Bld) Automated basophil % . [facility] Bilirubin Test strip Ql (U)O rdered By: Louie Marrero on 08-20-2024 Bilirubin Ql (U) Bilirubin.total [Presence] in Urine by Test strip Negative [facility] Bilirubin.total [Mass/volume ] in Serum or PlasmaOrdered By: Louie Marrero on 08-20-2024 Bilirubin [Mass/Vol] Bilirubin.total [Mass/volume] in Serum or Plasma 0.3-1.0 [facility] BioFire Not Detectedon 08-20 BioFire Not Detected Not detected Normal Not Detecte [facility] Comment on above: Result Comment: This is a duplicate RP2.1 COVID (PCR) result to be used for statistical tracking purpose only. PERFORMED BY: [place] [address] PATHOLOGIST MAINTENANCE PIPEFITTER HEBER SHANNON M.D. Performed By: #### B MP, CBC #### [address] Blood Cultureon 08-20-2024 Bacteria identified Cx Nom (Bld) MISSED X1 PT REFUSED TO LET ME TRY AGAIN RN NORRIS KNOWS NO GROWTH 5 DAYS PERFORMED BY: [place] [address] PATHOLOGIST MAINTENANCE PIPEFITTER HEBER SHANNON M.D. Normal [facility] Comment on above: Performed By: #### C MP, CBC #### [address] Bacteria identified Cx Nom (Bld) right chest NO GROWTH 5 DAYS PERFORMED BY: [place] [address] PATHOLOGIST MAINTENANCE PIPEFITTER HEBER SHANNON M.D. Normal [facility] Comment on above: Performed By: #### C MP, CBC #### [address] C reactive protein [Mass/vol ume] in Serum or PlasmaOrdered By: Louie Marrero on 08-20-2024 CRP [Mass/Vol] C reactive protein [Mass/volume] in Serum or Plasma High 0.0-0.5 [facility] C-Reactive Proteinon 025 C-Reactive Protein 3.3 mg/dL High 0.0-0.5 [facility] Comment on above: Result Comment: PERF ORMED BY: [place] [address] PATHOLOGIST MAINTENANCE PIPEFITTER HEBER SHANNON M.D. Performed By: #### C MP, CBC #### [address] COVID-19 Detected/Not Detect edOrdered By: Louie Marrero on 08-20-2024 SARS-CoV-2 (COVID-19) RNA MICHELLE+non-probe Ql (Nph) Not detected Not Detecte [facility] Comment on above: This is a duplicate RP2.1 COVID (PCR) result to be used for statistical tracking purpose only. Calcium [Mass/volume] in Ser um or PlasmaOrdered By: Louie Marrero on 08-20-2024 Calcium [Mass/Vol] Calcium [Mass/volume ] in Serum or Plasma Low 8.6-10.3 [facility] Carbon dioxide, total [Moles /volume] in Serum or PlasmaOrdered By: Louie Marrero on 08-20-2024 CO2 [Moles/Vol] Carbon dioxide, tota l [Moles/volume] in Serum or Plasma 21.0-31.0 [facility] Chloride [Moles/volume] in S stephanie or PlasmaOrdered By: Louie Marrero on 08-20-2024 Chloride [Moles/Vol] Chloride [Moles/vol ume] in Serum or Plasma 98-107 [facility] Color Auto (U)Ordered By: Abe Marrero on 08-20-2024 Color (U) Color of Urine by Auto [facility] Count Auto Di ffon 08-20-2024 Basophils (Bld) [#/Vol] 0.0 10*3/uL Normal 0.0-0.2 [facility] Comment on above: Result Comment: PERF ORMED BY: [place] [address] PATHOLOGIST MAINTENANCE PIPEFITTER HEBER SHANNON M.D. Performed By: #### C MP, CBC #### [address] Basophils/100 WBC (Bld) 0.5 % Normal . [facility] Comment on above: Performed By: #### C MP, CBC #### [place] [address] [place] Eosinophils (Bld) [#/Vol] 0.1 10*3/uL Normal 0.0-0.45 [facility] Comment on above: Performed By: #### C MP, CBC #### [place] [address] [place] Eosinophils/100 WBC (Bld) 0.7 % Normal . [facility] Comment on above: Performed By: #### C MP, CBC #### [address] Erythrocyte distribution width (RBC) [Ratio] 14.8 % Normal 12.0-14.8 [facility] Comment on above: Performed By: #### C MP, CBC #### [address] Hematocrit (Bld) [Volume fraction] 34.2 % Low 38.8-50.0 [facility] Comment on above: Performed By: #### C MP, CBC #### [address] Hemoglobin (Bld) [Mass/Vol] 11.4 g/dL Low 13.0-17.0 [facility] Comment on above: Performed By: #### C MP, CBC #### [address] Lymphocytes (Bld) [#/Vol] 0.8 10*3/uL Low 1.00-4.8 [facility] Comment on above: Performed By: #### C MP, CBC #### [address] Lymphocytes/100 WBC (Bld) 10.5 % Normal . [facility] Comment on above: Performed By: #### C MP, CBC #### [address] MCH (RBC) [Entitic mass] 31.0 pg Normal 27.5-35.2 [facility] Comment on above: Performed By: #### C MP, CBC #### [address] MCV (RBC) [Entitic vol] 92.9 fL Normal 83.5-101 [facility] Comment on above: Performed By: #### C MP, CBC #### [address] Mean Corpuscular HGB Conc 33.4 g/dL Normal 32.5-35.6 [facility] Comment on above: Performed By: #### C MP, CBC #### [address] Monocytes (Bld) [#/Vol] 0.8 10*3/uL Normal 0.0-0.8 [facility] Comment on above: Performed By: #### C MP, CBC #### [place] [address] [place] Monocytes/100 WBC (Bld) 23.19 % High 0.00-20.00 [facility] Comment on above: Result Comment: For adults in ED, MDW > 20.0 may be associated with a higher risk of sepsis during the first 12 hrs of hospital admission Performed By: #### C MP, CBC #### [address] Monocytes/100 WBC (Bld) 11.3 % Normal . [facility] Comment on above: Performed By: #### C MP, CBC #### [address] Neutrophils (Bld) [#/Vol] 5.7 10*3/uL Normal 1.8-7.7 [facility] Comment on above: Performed By: #### C MP, CBC #### [address] Neutrophils/100 WBC (Bld) 77.0 % Normal . [facility] Comment on above: Performed By: #### C MP, CBC #### [place] [address] [place] NRBC% 0.2 /100{WBC} Normal 0-0.5 [facility] Comment on above: Performed By: #### C MP, CBC #### [address] Platelet mean volume (Bld) [Entitic vol] 8.1 fL Normal 6.6-10.1 [facility] Comment on above: Performed By: #### C MP, CBC #### [address] Platelets (Bld) [#/Vol] 234 10*3/uL Normal 150-450 [facility] Comment on above: Performed By: #### C MP, CBC #### [address] RBC (Bld) [#/Vol] 3.68 10*6/uL Low 3.90-5.60 [facility] Comment on above: Performed By: #### C MP, CBC #### [address] WBC (Bld) [#/Vol] 7.4 10*3/uL Normal 4.1-10.5 [facility] Comment on above: Performed By: #### C MP, CBC #### [address] Comprehensive Metabolic Pane obdulio 08-20-2024 Albumin [Mass/Vol] 3.4 g/dL Low 3.5-5.7 [facility] Comment on above: Performed By: #### C MP, CBC #### [address] Albumin/Globulin [Mass ratio] 1.4 {ratio} Normal [facility] Comment on above: Performed By: #### C MP, CBC #### [address] ALP [Catalytic activity/Vol] 66 U/L Normal 34-104 [facility] Comment on above: Performed By: #### C MP, CBC #### [address] ALT [Catalytic activity/Vol] 17 U/L Normal 7-52 [facility] Comment on above: Performed By: #### C MP, CBC #### [address] Anion gap [Moles/Vol] 10.3 mmol/L Normal 6.0-15.0 [facility] Comment on above: Performed By: #### C MP, CBC #### [address] AST [Catalytic activity/Vol] 18 U/L Normal 13-39 [facility] Comment on above: Performed By: #### C MP, CBC #### [address] Bilirubin [Mass/Vol] 0.6 mg/dL Normal 0.3-1.0 [facility] Comment on above: Performed By: #### C MP, CBC #### [address] Calcium [Mass/Vol] 8.4 mg/dL Low 8.6-10.3 [facility] Comment on above: Performed By: #### C MP, CBC #### [address] Chloride [Moles/Vol] 104 mmol/L Normal 98-107 [facility] Comment on above: Performed By: #### C MP, CBC #### [address] CO2 [Moles/Vol] 25.4 mmol/L Normal 21.0-31.0 [facility] Comment on above: Performed By: #### C MP, CBC #### [address] Creatinine [Mass/Vol] 0.85 mg/dL Normal 0.70-1.30 [facility] Comment on above: Performed By: #### C MP, CBC #### [address] Creatinine Clr Calc Pharmacy 58.71 Normal [facility] Comment on above: Result Comment: PERF ORMED BY: [place] [address] PATHOLOGIST MAINTENANCE PIPEFITTER HEBER SHANNON M.D. Performed By: #### C MP, CBC #### [place] [address] [place] GFR/1.73 sq M.predicted MDRD (S/P/Bld) [Vol rate/Area] mL/min/{1.73_m2} Normal [facility] Comment on above: Performed By: #### C MP, CBC #### [facility] [address] Globulin (S) [Mass/Vol] 2.5 g/dL Normal [facility] Comment on above: Performed By: #### C MP, CBC #### [facility] [address] Glucose [Mass/Vol] 106 mg/dL High 70-100 [facility] Comment on above: Result Comment: [facility] Glucose Reference Range is dependent on time and content of last meal. Glucose of more than 200 mg/dL in a nonstressed, ambulatory subject supports the diagnosis of Diabetes Mellitus. ADA recommended reference range Performed By: #### C MP, CBC #### [facility] [address] Potassium [Moles/Vol] 3.7 mmol/L Normal 3.5-5.1 [facility] Comment on above: Performed By: #### C MP, CBC #### [facility] [address] Protein [Mass/Vol] 5.9 g/dL Low 6.4-8.9 [facility] Comment on above: Performed By: #### C MP, CBC #### [address] Sodium [Moles/Vol] 136 mmol/L Normal 136-145 [facility] Comment on above: Performed By: #### C MP, CBC #### [place] [id number] [place] Urea nitrogen [Mass/Vol] 16 mg/dL Normal 7-25 [facility] Comment on above: Performed By: #### C MP, CBC #### [place] [address] [place] Creatinine [Mass/volume] in Serum or PlasmaOrdered By: Louie Marrero on 08-20-2024 Creatinine [Mass/Vol] Creatinine [Mass/v olume] in Serum or Plasma 0.70-1.30 [facility] ECG 12 lead ECGon 08-20-2024 ECG 12 lead ECG [facility] [place] [address] [place] [address] Electrocardiograph Report Signed Patient: Jeremie Bennett MR#: [id number] : [id number] Acct:[id number] Age/Sex: 83 / M ADM Date: 08/20/24 Loc: ER Room: Type: [facility] ER Attending Dr: Ordering Provider: Louie Marrero DO Date of Service: 08/20/2411/08/1733 ECG/ECG 12 lead ECG: Fever Copies to: Test Reason : Blood Pressure : 121/59 mmHG Vent. Rate : 72 BPM Atrial Rate : 72 BPM P-R Int : 250 ms QRS Dur : 144 ms QT Int : 448 ms P-R-T Axes : * -71 40 degrees QTcB Int : 490 ms Sinus rhythm with 1st degree AV block with frequent premature ventricular complexes Left axis deviation Right bundle branch block Abnormal ECG No previous ECGs available Confirmed by LOUIE MARRERO DO ([id number]) on 08/20/2024 7:55:25 PM Referred By: Electronically Signed By: LOUIE MARRERO DO Transcribed By: MUS Signed By Louie Marrero DO 08/20 Normal [facility] Eosinophils Auto (Bld) [#/Vo l]Ordered By: Louie Marrero on 08-20-2024 Eosinophils (Bld) [#/Vol] Automated eosinophil count 0.0-0.45 [facility] Eosinophils/100 WBC Auto (Bl d)Ordered By: Louie Marrero on 08-20-2024 Eosinophils/100 WBC (Bld) Automated eosinophil % . [facility] Erythrocyte Sedimentation Ra ciro 08-20-2024 ESR (Bld) [Velocity] 42 mm/h High 0-19 [facility] Comment on above: Result Comment: PERF ORMED BY: [place] [address] PATHOLOGIST MAINTENANCE PIPEFITTER HEBER SHANNON M.D. Performed By: #### E #### [address] Erythrocyte distribution wid th Auto (RBC) [Ratio]Ordered By: Louie Marrero on 08-20-2024 Erythrocyte distribution width (RBC) [Ratio] Erythrocyte distribution width [Ratio] by Automated count 12.0-14.8 [facility] Erythrocyte sedimentation ra te by Photometric methodOrdered By: Jaiden Nance on 08-20-2024 ESR Photometric method (Bld) [Velocity] Erythrocyte sedimentation rate by Photometric method High 0-19 [facility] Globulin Calc (S) [Mass/Vol] Ordered By: Louie Marrero on 08-20-2024 Globulin (S) [Mass/Vol] Serum globulin measurement by calculation (mass/volume) [facility] Glucose [Mass/volume] in Ser um or PlasmaOrdered By: Louie Marrero on 08-20-2024 Glucose [Mass/Vol] Glucose [Mass/volume ] in Serum or Plasma High 70-100 [facility] Comment on above: ADA recommended refe rence rangeRandom Glucose Reference Range is dependent on time and content of last meal. Glucose of more than 200 mg/dL in a nonstressed, ambulatory subject supports the diagnosis of Diabetes Mellitus. Glucose [Mass/volume] in Uri ne by Test stripOrdered By: Louie Marrero on 08-20-2024 Glucose Test strip (U) [Mass/Vol] Glucose [Mass/volume] in Urine by Test strip Normal [facility] Hematocrit Auto (Bld) [Volum e fraction]Ordered By: Louie Marrero on 08-20-2024 Hematocrit (Bld) [Volume fraction] Hematocrit [Volume Fraction] of Blood by Automated count Low 38.8-50.0 [facility] Hemoglobin Test strip Ql (U) Ordered By: Louie Marrero on 08-20-2024 Hemoglobin Ql (U) Hemoglobin [Presence ] in Urine by Test strip Negative [facility] Hemoglobin [Mass/volume] in BloodOrdered By: Louie Marrero 08-20-2024 Hemoglobin (Bld) [Mass/Vol] Hemoglobin [Mass/volume] in Blood Low 13.0-17.0 [facility] INR in Platelet poor plasma by Coagulation assayOrdered By: Louie Marrero on 08-20-2024 INR Coag (PPP) [Relative time] INR in Platelet poor plasma by Coagulation assay [facility] Comment on above: INR Therapeutic Rang e A) Pre- and Peroperative OAT started two weeks before surgery. NOT HIP SURGERY: 1.5 - 2.5 HIP SURGERY: 2 - 3B) Primary and secondary prevention of venous THROMBOSIS: 2 - 3C) Active venous thrombosis, pulmonary embolismand prevention of recurrent venous thrombosis: 2 - 3D) Prevention of arterial thromboembolismincluding patients with mechanical heart valves: 3 - 4.5 Ketones Test strip Ql (U)Ord ered By: Louie Marrero on 08-20-2024 Ketones Ql (U) Ketones [Presence] i n Urine by Test strip High Negative [facility] Laboratory - Microbiology an d Antimicrobial susceptibilityOrdered By: Louie Marrero on 08-20-2024 Bacteria identified Cx Nom (Bld) NO GROWTH 5 DAYS [facility] Bacteria identified Cx Nom (Bld) NO GROWTH 5 DAYS [facility] Lactate [Moles/volume] in Se rum or PlasmaOrdered By: Louie Marrero on 08-20-2024 Lactate [Moles/Vol] Lactate [Moles/volum e] in Serum or Plasma 0.5-1.9 [facility] Comment on above: Lactic Acid referenc e range has been updated to 0.5 1.9 mmol/L and the critical range of 2.0 or greater. Lactic Acidon 08-20-2024 Lactate [Moles/Vol] 0.8 mmol/L Normal 0.5-1.9 [facility] Comment on above: Result Comment: Lact ic Acid reference range has been updated to 0.5 ? 1.9 mmol/L and the critical range of 2.0 or greater. PERFORMED BY: [place] [address] PATHOLOGIST MAINTENANCE PIPEFITTER HEBER SHANNON M.D. Performed By: #### C MP, CBC #### [address] Leukocyte esterase [Presence ] in Urine by Test stripOrdered By: Louie Marrero on 08-20-2024 Leukocyte esterase Test strip Ql (U) Leukocyte esterase [Presence] in Urine by Test strip Negative [facility] Leukocytes [#/volume] correc suzy for nucleated erythrocytes in Blood by Automated counOrdered By: Louie Marrero on 08-20-2024 WBC corrected for nucl RBC Auto (Bld) [#/Vol] Leukocytes [#/volume] corrected for nucleated erythrocytes in Blood by Automated coun 4.1-10.5 [facility] Lymphocytes Auto (Bld) [#/Vo l]Ordered By: Louie Marrero on 08-20-2024 Lymphocytes (Bld) [#/Vol] Lymphocytes [#/volume] in Blood by Automated count Low 1.00-4.8 [facility] Lymphocytes/100 WBC Auto (Bl d)Ordered By: Louie Marrero on 08-20-2024 Lymphocytes/100 WBC (Bld) Lymphocytes/100 leukocytes in Blood by Automated count . [facility] MCH Auto (RBC) [Entitic mass ]Ordered By: Louie Marrero on 08-20-2024 MCH (RBC) [Entitic mass] MCH [Entitic mass] by Automated count 27.5-35.2 [facility] MCHC Auto (RBC) [Mass/Vol]Or dered By: Louie Marrero on 08-20-2024 MCHC (RBC) [Mass/Vol] MCHC [Mass/volume] by Automated count 32.5-35.6 [facility] MCV Auto (RBC) [Entitic vol] Ordered By: Louie Marrero on 08-20-2024 MCV (RBC) [Entitic vol] MCV [Entitic volume] by Automated count 83.5-101 [facility] Monocyte distribution width [Entitic volume] in Blood by AutomatedOrdered By: Louie Marrero on 08-20-2024 Monocyte distribution width Auto (Bld) [Entitic vol] Monocyte distribution width [Entitic volume] in Blood by Automated High 0.00-20.00 [facility] Comment on above: For adults in ED, MD W > 20.0 may be associated with a higher risk of sepsis during the first 12 hrs of hospital admission Monocytes Auto (Bld) [#/Vol] Ordered By: Louie Marrero on 08-20-2024 Monocytes (Bld) [#/Vol] Automated blood monocyte count 0.0-0.8 [facility] Monocytes/100 WBC Auto (Bld) Ordered By: Louie Marrero on 08-20-2024 Monocytes/100 WBC (Bld) Automated monocyte % . [facility] Neutrophils Auto (Bld) [#/Vo l]Ordered By: Louie Marrero on 08-20-2024 Neutrophils (Bld) [#/Vol] Neutrophils [#/volume] in Blood by Automated count 1.8-7.7 [facility] Neutrophils/100 WBC Auto (Bl d)Ordered By: Louie Marrero on 08-20-2024 Neutrophils/100 WBC (Bld) Automated neutrophil % . [facility] Nitrite Test strip Ql (U)Ord ered By: Louie Marrero on 08-20-2024 Nitrite Ql (U) Nitrite [Presence] i n Urine by Test strip Negative [facility] No Panel InformationOrdered By: Louie Marrero on 08-20-2024 Estimated GFR (CKD-EPI) > 60.0 mL/Min [facility] Creatinine Clearance (Chem 58.71 [facility] Nucleated erythrocytes [Pres ence] in Blood by Automated countOrdered By: Louie Marrero on 08-20-2024 Nucleated RBC Auto Ql (Bld) Nucleated erythrocytes [Presence] in Blood by Automated count 0-0.5 [facility] Platelet mean volume Auto (B ld) [Entitic vol]Ordered By: Louie Marrero on 08-20-2024 Platelet mean volume (Bld) [Entitic vol] Platelet mean volume [Entitic volume] in Blood by Automated count 6.6-10.1 [facility] Platelets Auto (Bld) [#/Vol] Ordered By: Louie Marrero on 08-20-2024 Platelets (Bld) [#/Vol] Platelets [#/volume] in Blood by Automated count 150-450 [facility] Potassium [Moles/volume] in Serum or PlasmaOrdered By: Louie Marrero on 08-20-2024 Potassium [Moles/Vol] Potassium [Moles/v olume] in Serum or Plasma 3.5-5.1 [facility] Protein Test strip (U) [Mass /Vol]Ordered By: Louie Marrero on 08-20-2024 Protein (U) [Mass/Vol] Protein [Mass/vol ume] in Urine by Test strip Negative [facility] Protein [Mass/volume] in Ser um or PlasmaOrdered By: Louie Marrero on 08-20-2024 Protein [Mass/Vol] Protein [Mass/volume ] in Serum or Plasma Low 6.4-8.9 [facility] Prothrombin Time INRon 08-20 INR Coag (PPP) [Relative time] 1.1 {INR} Normal [facility] Comment on above: Result Comment: INR Therapeutic Range A) Pre- and Peroperative OAT started two weeks before surgery. NOT HIP SURGERY: 1.5 - 2.5 HIP SURGERY: 2 - 3 B) Primary and secondary prevention of venous THROMBOSIS: 2 - 3 C) Active venous thrombosis, pulmonary embolism and prevention of recurrent venous thrombosis: 2 - 3 D) Prevention of arterial thromboembolism including patients with mechanical heart valves: 3 - 4.5 PERFORMED BY: [place] [address] PATHOLOGIST MAINTENANCE PIPEFITTER HEBER SHANNON M.D. Performed By: #### C MP, CBC #### [address] PT Coag (PPP) [Time] 12.9 s Normal 9.0-12.9 [facility] Comment on above: Result Comment: A he matocrit value greater than 55% may lead to inaccurate results in coagulation testing. Patients having hematocrit values >55% require a special collection tube for coagulation studies. Please contact the laboratory at [phone] for redraw instructions. Performed By: #### C MP, CBC #### [address] Prothrombin time (PT)Ordered By: Louie Marrero on 08-20-2024 PT Coag (PPP) [Time] Prothrombin time (PT) 9.0- 12.9 [facility] Comment on above: A hematocrit value g reater than 55% may lead to inaccurate results in coagulation testing. Patients having hematocrit values >55% require a special collection tube for coagulation studies. Please contact the laboratory at [phone] for redraw instructions. RBC Auto (Bld) [#/Vol]Ordere d By: Louie Marrero on 08-20-2024 RBC (Bld) [#/Vol] Erythrocytes [#/volu me] in Blood by Automated count Low 3.90-5.60 [facility] Respiratory (Upper) Panel, P CRon 08-20-2024 Respiratory (Upper) Panel, PCR Adenovirus Not detected Bordetella parapertussis Not detected Chlamydia pneumoniae Not detected Coronavirus 229E Not detected Coronavirus HKU1 Not detected Coronavirus NL63 Not detected Coronavirus OC43 Not detected Influenza A Not detected Influenza B Not detected Human Metapneumovirus Not detected Mycoplasma pneumoniae Not detected Parainfluenza Virus 1 Not detected Parainfluenza Virus 2 Not detected Parainfluenza Virus 3 Not detected Parainfluenza Virus 4 Not detected Bordetella pertussis-ptxP Not detected Human Rhino/Enterovirus Not detected Resp. Syncytial Virus Not detected COVID-19 Detected/Not Detected Not detected Blank Space ---- FLUA TEST INCLUDES Influenza A tests for the following clinically FLUA TEST INCLUDES significant subtypes: FLUA TEST INCLUDES - Influenza A FLUA TEST INCLUDES - Influenza A H1 FLUA TEST INCLUDES - Influenza A H1 2009 FLUA TEST INCLUDES - Influenza A H3 Blank Space ---- PERFORMED BY: [place] [address] PATHOLOGIST MAINTENANCE PIPEFITTER HEBER SHANNON M.D. Normal [facility] Comment on above: Performed By: #### B MP, CBC #### [address] Respiratory pathogens DNA an d RNA panel - Nasopharynx by MICHELLE with non-probe detectionOrdered By: Louie Marrero on 08-20-2024 Respiratory pathogens DNA and RNA panel MICHELLE+non-probe (Nph) Respiratory pathogens DNA and RNA panel - Nasopharynx by MICHELLE with non-probe detection [facility] Serum or plasma albumin/glob ulin mass ratioOrdered By: Louie Marrero on 08-20-2024 Albumin/Globulin [Mass ratio] Serum or plasma albumin/globulin mass ratio [facility] Serum or plasma anion gap de terminationOrdered By: Louie Marrero on 08-20-2024 Anion gap [Moles/Vol] Serum or plasma an ion gap determination 6.0-15.0 [facility] Sodium [Moles/volume] in Ser um or PlasmaOrdered By: Louie Marrero on 08-20-2024 Sodium [Moles/Vol] Sodium [Moles/volume ] in Serum or Plasma 136-145 [facility] Specific gravity Test strip (U) [Rel density]Ordered By: Louie Marrero on 08-20-2024 Specific gravity (U) [Rel density] Specific gravity of Urine by Test strip 1.001-1.03 0 [facility] Troponin I High Sensitivityo n 08-20-2024 Troponin I High Sensitivity 12 Normal 0-20 [facility] Comment on above: Result Comment: The Troponin units of report have been changed to meet the Chest Pain Accreditation requirement, element EC5.M1l2. Troponin units are changed from pg/ml to ng/L. Also, the decimal is removed and results are in whole numbers. PERFORMED BY: [place] [address] PATHOLOGIST MAINTENANCE PIPEFITTER HEBER SHANNON M.D. Performed By: #### B MP, CBC #### [address] Troponin I.cardiac [Mass/vol ume] in Serum or Plasma by Detection limit <= 0.01 ng/Ordered By: Louie Marrero on 08-20-2024 Troponin I.cardiac DL <= 0.01 ng/mL [Mass/Vol] Troponin I.cardiac [Mass/volume] in Serum or Plasma by Detection limit <= 0.01 ng/ 0-20 [facility] Comment on above: The Troponin units o f report have been changed to meet the Chest Pain Accreditation requirement, element EC5.M1l2. Troponin units are changed from pg/ml to ng/L. Also, the decimal is removed and results are in whole numbers. Urea nitrogen [Mass/volume] in Serum or PlasmaOrdered By: Louie Marrero on 08-20-2024 Urea nitrogen [Mass/Vol] Urea nitrogen [Mass/volume] in Serum or Plasma 7-25 [facility] Urinalysison 08-20-2024 Appearance (U) Clear Normal Clear [facility] Comment on above: Order Comment: Name Collection Type:: Straight Catheter Performed By: #### B MP, CBC #### [facility] [address] [place] [id number] [place] Bilirubin,Urine Negative Normal Negative [facility] Comment on above: Order Comment: Name Collection Type:: Straight Catheter Performed By: #### B MP, CBC #### [place] [id number] [place] Color (U) Light-Yellow Normal Yellow [facility] Comment on above: Order Comment: Name Collection Type:: Straight Catheter Performed By: #### B MP, CBC #### [place] [address] [place] Glucose Ql (U) Normal Normal Normal [facility] Comment on above: Order Comment: Name Collection Type:: Straight Catheter Performed By: #### B MP, CBC #### [place] [address] [place] Ketones Ql (U) 1+ High Negative [facility] Comment on above: Order Comment: Name Collection Type:: Straight Catheter Performed By: #### B MP, CBC #### [address] Leukocyte esterase Test strip Ql (U) Negative Normal Negative [facility] Comment on above: Order Comment: Name Collection Type:: Straight Catheter Performed By: #### B MP, CBC #### [place] [id number] [place] Nitrite,Urine Negative Normal Negative [facility] Comment on above: Order Comment: Name Collection Type:: Straight Catheter Performed By: #### B MP, CBC #### [place] [id number] [place] Occult Blood,Urine Negative Normal Negative [facility] Comment on above: Order Comment: Name Collection Type:: Straight Catheter Result Comment: PERF ORMED BY: [place] [address] PATHOLOGIST MAINTENANCE PIPEFITTER HEBER SHANNON M.D. Performed By: #### B MP, CBC #### [address] pH (U) 5.5 [pH] Normal 5.0-9.0 [facility] Comment on above: Order Comment: Name Collection Type:: Straight Catheter Performed By: #### B MP, CBC #### [address] Protein,Urine Negative Normal Negative [facility] Comment on above: Order Comment: Name Collection Type:: Straight Catheter Performed By: #### B MP, CBC #### [address] Specificy [place],Urine 1.017 Normal 1.001-1.03 0 [facility] Comment on above: Order Comment: Name Collection Type:: Straight Catheter Performed By: #### B MP, CBC #### [address] Urobilinogen,Urine Normal Normal Normal [facility] Comment on above: Order Comment: Name Collection Type:: Straight Catheter Performed By: #### B MP, CBC #### [address] Urobilinogen Test strip (U) [Mass/Vol]Ordered By: Louie Marrero on 08-20-2024 Urobilinogen (U) [Mass/Vol] Urobilinogen [Mass/volume] in Urine by Test strip Normal [facility] WBC Auto (Bld) [#/Vol]Ordere d By: Louie Marrero on 08-20-2024 WBC (Bld) [#/Vol] Leukocytes [#/volume ] in Blood by Automated count 4.1-10.5 [facility] X-ray reportOrdered By: Brooks Benavides on 08-20-2024 Study report [facility] [place] [address] [place] [address] XRay Report Signed Patient: Jeremie Bennett MR#: [id number] : 1940 Acct:[id number] Age/Sex: 83 / M ADM Date: 5 Loc: ER Room: Type: [facility] ER Attending Dr: Copies to: Louie Marrero DO~ Ordering Provider: Louie Marrero DO Date of Service: 08/20/24 XR/XR chest 1V portable: Fever SINGLE VIEW CHEST CLINICAL HISTORY: Fever, recently finished chemotherapy, cough for 3 weeks COMPARISON: 07/17/2024 FINDINGS: Left-sided pacemaker device. Right-sided [id number]. Posterior changes fromprior ACDF. Mildly enlarged cardiac silhouette. Minimal hazy bibasilar opacities similar prior exam. No effusion or pneumothorax. XR/XR chest 1V portable IMPRESSION: MILD BIBASILAR AIRSPACE OPACITIES, THESE APPEAR SIMILAR PRIOR EXAM. Impression dictated by: Rah Benavides M.D.08/20/2024 6:32 PM Dictation Location: [place] [address] Transcribed By: [facility] 08/20/241831 Dictated By: Rah Benavides MD 08/20/241830 Signed By: 08/20/241831 [facility] Work Phone: XR chest 1V portableon 08-20 XR chest 1V portable [facility] [place] [address] [place] [address] XRay Report Signed Patient: Jeremie Bennett MR#: [id number] : 1940 Acct:[id number] Age/Sex: 83 / M ADM Date: 08/20/24 Loc: ER Room: Type: [facility] ER Attending Dr: Copies to: Louie Marrero DO Ordering Provider: Louie Marrero DO Date of Service: 08/20/24 XR/XR chest 1V portable: Fever SINGLE VIEW CHEST CLINICAL HISTORY: Fever, recently finished chemotherapy, cough for 3 weeks COMPARISON: 07/17/2024 FINDINGS: Left-sided pacemaker device. Right-sided [id number]. Posterior changes from prior ACDF. Mildly enlarged cardiac silhouette. Minimal hazy bibasilar opacities similar prior exam. No effusion or pneumothorax. XR/XR chest 1V portable IMPRESSION: MILD BIBASILAR AIRSPACE OPACITIES, THESE APPEAR SIMILAR PRIOR EXAM. Impression dictated by: Rah Benavides M.D.08/20/2024 6:32 PM Dictation Location: [place] [address] Transcribed By: [facility] 08/20/241831 Dictated By: Rah Benavides MD 08/20/241830 Signed By: 08/20/241831 Normal [facility] pH Test strip (U)Ordered By: Louie Marrero on 08-20-2024 pH (U) pH of Urine by Test strip 5.0-9.0 [facility] Alanine aminotransferase [En zymatic activity/volume] in Serum or PlasmaOrdered By: Talib Faustin on 08-16-2024 ALT [Catalytic activity/Vol] Alanine aminotransferase [Enzymatic activity/volume] in Serum or Plasma 7-52 [facility] Albumin [Mass/volume] in Ser um or Plasma by Bromocresol green (BCG) dye binding methoOrdered By: Talib Faustin on 08-16-2024 Albumin BCG dye [Mass/Vol] Albumin [Mass/volume] in Serum or Plasma by Bromocresol green (BCG) dye binding metho 3.5-5.7 [facility] Alkaline phosphatase [Enzyma tic activity/volume] in Serum or PlasmaOrdered By: Talib Faustin on 08-16-2024 ALP [Catalytic activity/Vol] Alkaline phosphatase [Enzymatic activity/volume] in Serum or Plasma 34-104 [facility] Aspartate aminotransferase [ Enzymatic activity/volume] in Serum or PlasmaOrdered By: Talib Faustin on 08-16-2024 AST [Catalytic activity/Vol] Aspartate aminotransferase [Enzymatic activity/volume] in Serum or Plasma 13-39 [facility] Basophils Auto (Bld) [#/Vol] Ordered By: Talib Faustin on 08-16-2024 Basophils (Bld) [#/Vol] Automated basophil count 0.0-0.2 [facility] Basophils/100 WBC Auto (Bld) Ordered By: Talib Faustin on 08-16-2024 Basophils/100 WBC (Bld) Automated basophil % . [facility] Bilirubin.total [Mass/volume ] in Serum or PlasmaOrdered By: rick Faustin on 08-16-2024 Bilirubin [Mass/Vol] Bilirubin.total [Mass/volume] in Serum or Plasma 0.3-1.0 [facility] Calcium [Mass/volume] in Ser um or PlasmaOrdered By: rick Faustin on 08-16-2024 Calcium [Mass/Vol] Calcium [Mass/volume ] in Serum or Plasma 8.6-10.3 [facility] Carbon dioxide, total [Moles /volume] in Serum or PlasmaOrdered By: [facility] Ying Hargorve on 08-16-2024 CO2 [Moles/Vol] Carbon dioxide, tota l [Moles/volume] in Serum or Plasma 21.0-31.0 [facility] Chloride [Moles/volume] in S stephanie or PlasmaOrdered By: [facility] Ramin on 08-16-2024 Chloride [Moles/Vol] Chloride [Moles/vol ume] in Serum or Plasma 98-107 [facility] Complete Blood Count Auto Di ffon 08-16-2024 Basophils (Bld) [#/Vol] 0.1 10*3/uL Normal 0.0-0.2 [facility] Comment on above: Result Comment: PERF ORMED BY: [address] [place] [address] PATHOLOGIST MAINTENANCE PIPEFITTER HEBER SHANNON M.D. Performed By: #### C MP, CBC #### [facility] [address] [place] [address] [place] Basophils/100 WBC (Bld) 1.1 % Normal . [facility] Comment on above: Performed By: #### C MP, CBC #### [facility] [address] [place] [address] [place] Eosinophils (Bld) [#/Vol] 0.1 10*3/uL Normal 0.0-0.45 [facility] Comment on above: Performed By: #### C MP, CBC #### [facility] [address] [place] [address] [place] Eosinophils/100 WBC (Bld) 0.7 % Normal . [facility] Comment on above: Performed By: #### C MP, CBC #### [address] Erythrocyte distribution width (RBC) [Ratio] 15.2 % High 12.0-14.8 [facility] Comment on above: Performed By: #### C MP, CBC #### [address] Hematocrit (Bld) [Volume fraction] 34.8 % Low 38.8-50.0 [facility] Comment on above: Performed By: #### C MP, CBC #### [address] Hemoglobin (Bld) [Mass/Vol] 11.7 g/dL Low 13.0-17.0 [facility] Comment on above: Performed By: #### C MP, CBC #### [address] Lymphocytes (Bld) [#/Vol] 0.6 10*3/uL Low 1.00-4.8 [facility] Comment on above: Performed By: #### C MP, CBC #### [address] Lymphocytes/100 WBC (Bld) 6.4 % Normal . [facility] Comment on above: Performed By: #### C MP, CBC #### [address] MCH (RBC) [Entitic mass] 30.8 pg Normal 27.5-35.2 [facility] Comment on above: Performed By: #### C MP, CBC #### [address] MCV (RBC) [Entitic vol] 91.9 fL Normal 83.5-101 [facility] Comment on above: Performed By: #### C MP, CBC #### [address] Mean Corpuscular HGB Conc 33.5 g/dL Normal 32.5-35.6 [facility] Comment on above: Performed By: #### C MP, CBC #### [facility] [address] [place] [address] [place] Monocytes (Bld) [#/Vol] 1.1 10*3/uL High 0.0-0.8 [facility] Comment on above: Performed By: #### C MP, CBC #### [facility] [address] [place] [address] [place] Monocytes/100 WBC (Bld) 12.6 % Normal . [facility] Comment on above: Performed By: #### C MP, CBC #### [facility] [address] Neutrophils (Bld) [#/Vol] 7.2 10*3/uL Normal 1.8-7.7 [facility] Comment on above: Performed By: #### C MP, CBC #### [address] Neutrophils/100 WBC (Bld) 79.2 % Normal . [facility] Comment on above: Performed By: #### C MP, CBC #### [place] [address] [place] NRBC% 0.1 /100{WBC} Normal 0-0.5 [facility] Comment on above: Performed By: #### C MP, CBC #### [place] [address] [place] Platelet mean volume (Bld) [Entitic vol] 7.5 fL Normal 6.6-10.1 [facility] Comment on above: Performed By: #### C MP, CBC #### [facility] [address] [place] [address] [place] Platelets (Bld) [#/Vol] 236 10*3/uL Normal 150-450 [facility] Comment on above: Performed By: #### C MP, CBC #### [place] [address] [place] RBC (Bld) [#/Vol] 3.79 10*6/uL Low 3.90-5.60 [facility] Comment on above: Performed By: #### C MP, CBC #### [address] WBC (Bld) [#/Vol] 9.1 10*3/uL Normal 4.1-10.5 [facility] Comment on above: Performed By: #### C MP, CBC #### [address] Comprehensive Metabolic Pane obdulio 08-16-2024 Albumin [Mass/Vol] 3.6 g/dL Normal 3.5-5.7 [facility] Comment on above: Performed By: #### C MP, CBC #### [address] Albumin/Globulin [Mass ratio] 1.4 {ratio} Normal [facility] Comment on above: Performed By: #### C MP, CBC #### [address] ALP [Catalytic activity/Vol] 73 U/L Normal 34-104 [facility] Comment on above: Performed By: #### C MP, CBC #### [address] ALT [Catalytic activity/Vol] 14 U/L Normal 7-52 [facility] Comment on above: Performed By: #### C MP, CBC #### [address] Anion gap [Moles/Vol] 10.5 mmol/L Normal 6.0-15.0 [facility] Comment on above: Performed By: #### C MP, CBC #### [address] AST [Catalytic activity/Vol] 13 U/L Normal 13-39 [facility] Comment on above: Performed By: #### C MP, CBC #### [address] Bilirubin [Mass/Vol] 0.4 mg/dL Normal 0.3-1.0 [facility] [facility] Comment on above: Performed By: #### C MP, CBC #### [address] Calcium [Mass/Vol] 8.6 mg/dL Normal 8.6-10.3 [facility] Comment on above: Performed By: #### C MP, CBC #### [facility] [address] [place] [address] [place] Chloride [Moles/Vol] 107 mmol/L Normal 98-107 [facility] Comment on above: Performed By: #### C MP, CBC #### [address] CO2 [Moles/Vol] 24.4 mmol/L Normal 21.0-31.0 [facility] Comment on above: Performed By: #### C MP, CBC #### [address] Creatinine [Mass/Vol] 0.83 mg/dL Normal 0.70-1.30 [facility] Comment on above: Performed By: #### C MP, CBC #### [place] [address] [place] Creatinine Clr Calc Pharmacy 59.79 Normal [facility] Comment on above: Result Comment: PERF ORMED BY: [place] [address] PATHOLOGIST MAINTENANCE PIPEFITTER HEBER SHANNON M.D. Performed By: #### C MP, CBC #### [address] GFR/1.73 sq M.predicted MDRD (S/P/Bld) [Vol rate/Area] mL/min/{1.73_m2} Normal [facility] Comment on above: Performed By: #### C MP, CBC #### [place] [address] [place] Globulin (S) [Mass/Vol] 2.6 g/dL Normal [facility] Comment on above: Performed By: #### C MP, CBC #### [address] Glucose [Mass/Vol] 119 mg/dL High 70-100 [facility] Comment on above: Result Comment: [place] Glucose Reference Range is dependent on time and content of last meal. Glucose of more than 200 mg/dL in a nonstressed, ambulatory subject supports the diagnosis of Diabetes Mellitus. ADA recommended reference range Performed By: #### C MP, CBC #### [address] Potassium [Moles/Vol] 3.9 mmol/L Normal 3.5-5.1 [facility] Comment on above: Performed By: #### C MP, CBC #### [address] Protein [Mass/Vol] 6.2 g/dL Low 6.4-8.9 [facility] Comment on above: Performed By: #### C MP, CBC #### [address] Sodium [Moles/Vol] 138 mmol/L Normal 136-145 [facility] Comment on above: Performed By: #### C MP, CBC #### [address] Urea nitrogen [Mass/Vol] 19 mg/dL Normal 7-25 [facility] Comment on above: Performed By: #### C MP, CBC #### [place] [address] [place] Creatinine [Mass/volume] in Serum or PlasmaOrdered By: Talib Faustin on 08-16-2024 Creatinine [Mass/Vol] Creatinine [Mass/v olume] in Serum or Plasma 0.70-1.30 [facility] Eosinophils Auto (Bld) [#/Vo l]Ordered By: Talib Faustin on 08-16-2024 Eosinophils (Bld) [#/Vol] Automated eosinophil count 0.0-0.45 [facility] Eosinophils/100 WBC Auto (Bl d)Ordered By: Talib Faustin on 08-16-2024 Eosinophils/100 WBC (Bld) Automated eosinophil % . [facility] Erythrocyte distribution wid th Auto (RBC) [Ratio]Ordered By: Talib Faustin on 08-16-2024 Erythrocyte distribution width (RBC) [Ratio] Erythrocyte distribution width [Ratio] by Automated count High 12.0-14.8 [facility] Globulin Calc (S) [Mass/Vol] Ordered By: rick Faustin on 08-16-2024 Globulin (S) [Mass/Vol] Serum globulin measurement by calculation (mass/volume) [facility] Glucose [Mass/volume] in Ser um or PlasmaOrdered By: rick Faustin on 08-16-2024 Glucose [Mass/Vol] Glucose [Mass/volume ] in Serum or Plasma High 70-100 [facility] Comment on above: ADA recommended refe rence rangeRandom Glucose Reference Range is dependent on time and content of last meal. Glucose of more than 200 mg/dL in a nonstressed, ambulatory subject supports the diagnosis of Diabetes Mellitus. Hematocrit Auto (Bld) [Volum e fraction]Ordered By: Talib Faustin on 08-16-2024 Hematocrit (Bld) [Volume fraction] Hematocrit [Volume Fraction] of Blood by Automated count Low 38.8-50.0 [facility] Hemoglobin [Mass/volume] in BloodOrdered By: Talib Faustin on 08-16-2024 Hemoglobin (Bld) [Mass/Vol] Hemoglobin [Mass/volume] in Blood Low 13.0-17.0 [facility] Leukocytes [#/volume] correc suzy for nucleated erythrocytes in Blood by Automated counOrdered By: Talib Faustin on 08-16-2024 WBC corrected for nucl RBC Auto (Bld) [#/Vol] Leukocytes [#/volume] corrected for nucleated erythrocytes in Blood by Automated coun 4.1-10.5 [facility] Lymphocytes Auto (Bld) [#/Vo l]Ordered By: Talib Faustin on 08-16-2024 Lymphocytes (Bld) [#/Vol] Lymphocytes [#/volume] in Blood by Automated count Low 1.00-4.8 [facility] Lymphocytes/100 WBC Auto (Bl d)Ordered By: Talib Faustin on 08-16-2024 Lymphocytes/100 WBC (Bld) Lymphocytes/100 leukocytes in Blood by Automated count . [facility] MCH Auto (RBC) [Entitic mass ]Ordered By: Talib Faustin on 08-16-2024 MCH (RBC) [Entitic mass] MCH [Entitic mass] by Automated count 27.5-35.2 [facility] MCHC Auto (RBC) [Mass/Vol]Or dered By: Talib Faustin on 08-16-2024 MCHC (RBC) [Mass/Vol] MCHC [Mass/volume] by Automated count 32.5-35.6 [facility] MCV Auto (RBC) [Entitic vol] Ordered By: Talib Faustin on 08-16-2024 MCV (RBC) [Entitic vol] MCV [Entitic volume] by Automated count 83.5-101 [facility] Monocytes Auto (Bld) [#/Vol] Ordered By: Talib Faustin on 08-16-2024 Monocytes (Bld) [#/Vol] Automated blood monocyte count High 0.0-0.8 [facility] Monocytes/100 WBC Auto (Bld) Ordered By: Talib Faustin on 08-16-2024 Monocytes/100 WBC (Bld) Automated monocyte % . [facility] Neutrophils Auto (Bld) [#/Vo l]Ordered By: Talib Faustin on 08-16-2024 Neutrophils (Bld) [#/Vol] Neutrophils [#/volume] in Blood by Automated count 1.8-7.7 [facility] Neutrophils/100 WBC Auto (Bl d)Ordered By: Talib Faustin on 08-16-2024 Neutrophils/100 WBC (Bld) Automated neutrophil % . [facility] No Panel InformationOrdered By: Talib Faustin on 08-16-2024 Estimated GFR (CKD-EPI) > 60.0 mL/Min [facility]acy Creatinine Clearance (Chem 59.79 [facility] Nucleated erythrocytes [Pres ence] in Blood by Automated countOrdered By: Talib Faustin on 08-16-2024 Nucleated RBC Auto Ql (Bld) Nucleated erythrocytes [Presence] in Blood by Automated count 0-0.5 [facility] Platelet mean volume Auto (B ld) [Entitic vol]Ordered By: Talib Faustin on 08-16-2024 Platelet mean volume (Bld) [Entitic vol] Platelet mean volume [Entitic volume] in Blood by Automated count 6.6-10.1 [facility] Platelets Auto (Bld) [#/Vol] Ordered By: Talib Faustin on 08-16-2024 Platelets (Bld) [#/Vol] Platelets [#/volume] in Blood by Automated count 150-450 [facility] Potassium [Moles/volume] in Serum or PlasmaOrdered By: Talib Faustin on 08-16-2024 Potassium [Moles/Vol] Potassium [Moles/v olume] in Serum or Plasma 3.5-5.1 [facility] Protein [Mass/volume] in Ser um or PlasmaOrdered By: Talib Faustin on 08-16-2024 Protein [Mass/Vol] Protein [Mass/volume ] in Serum or Plasma Low 6.4-8.9 [facility] RBC Auto (Bld) [#/Vol]Ordere d By: Talib Faustin on 08-16-2024 RBC (Bld) [#/Vol] Erythrocytes [#/volu me] in Blood by Automated count Low 3.90-5.60 [facility] Serum or plasma albumin/glob ulin mass ratioOrdered By: Talib Faustin on 08-16-2024 Albumin/Globulin [Mass ratio] Serum or plasma albumin/globulin mass ratio [facility] Serum or plasma anion gap de terminationOrdered By: Talib Faustin on 08-16-2024 Anion gap [Moles/Vol] Serum or plasma an ion gap determination 6.0-15.0 [facility] Sodium [Moles/volume] in Ser um or PlasmaOrdered By: Talib Faustin on 08-16-2024 Sodium [Moles/Vol] Sodium [Moles/volume ] in Serum or Plasma 136-145 [facility] Urea nitrogen [Mass/volume] in Serum or PlasmaOrdered By: Talib Faustin on 08-16-2024 Urea nitrogen [Mass/Vol] Urea nitrogen [Mass/volume] in Serum or Plasma 12-08 [facility] WBC Auto (Bld) [#/Vol]Ordere d By: Talib Faustin on 08-16-2024 WBC (Bld) [#/Vol] Leukocytes [#/volume ] in Blood by Automated count 4.1-10.5 [facility] Complete Blood Count Auto Di ffon 08-09-2024 Basophils (Bld) [#/Vol] 0.0 10*3/uL Normal 0.0-0.2 [facility] Comment on above: Result Comment: PERF ORMED BY: [place] [address] PATHOLOGIST MAINTENANCE PIPEFITTER HEBER SHANNON M.D. Performed By: #### C MP, CBC #### [address] Basophils/100 WBC (Bld) 0.4 % Normal . [facility] Comment on above: Performed By: #### C MP, CBC #### [address] Eosinophils (Bld) [#/Vol] 0.0 10*3/uL Normal 0.0-0.45 [facility] Comment on above: Performed By: #### C MP, CBC #### [address] Eosinophils/100 WBC (Bld) 0.5 % Normal . [facility] Comment on above: Performed By: #### C MP, CBC #### [address] Erythrocyte distribution width (RBC) [Ratio] 14.7 % Normal 12.0-14.8 [facility] Comment on above: Performed By: #### C MP, CBC #### [address] Hematocrit (Bld) [Volume fraction] 36.9 % Low 38.8-50.0 [facility] Comment on above: Performed By: #### C MP, CBC #### [facility] [address] Hemoglobin (Bld) [Mass/Vol] 12.4 g/dL Low 13.0-17.0 [facility] Comment on above: Performed By: #### C MP, CBC #### [address] Lymphocytes (Bld) [#/Vol] 0.6 10*3/uL Low 1.00-4.8 [facility] Comment on above: Performed By: #### C MP, CBC #### [address] Lymphocytes/100 WBC (Bld) 7.4 % Normal . [facility] Comment on above: Performed By: #### C MP, CBC #### [address] MCH (RBC) [Entitic mass] 30.9 pg Normal 27.5-35.2 [facility] Comment on above: Performed By: #### C MP, CBC #### [place] [address] [place] MCV (RBC) [Entitic vol] 92.2 fL Normal 83.5-101 [facility] Comment on above: Performed By: #### C MP, CBC #### [address] Mean Corpuscular HGB Conc 33.6 g/dL Normal 32.5-35.6 [facility] Comment on above: Performed By: #### C MP, CBC #### [place] [address] [place] Monocytes (Bld) [#/Vol] 0.8 10*3/uL Normal 0.0-0.8 [facility] Comment on above: Performed By: #### C MP, CBC #### [place] [address] [place] Monocytes/100 WBC (Bld) 8.9 % Normal . [facility] Comment on above: Performed By: #### C MP, CBC #### [facility] [address] [place] [address] [place] Neutrophils (Bld) [#/Vol] 7.2 10*3/uL Normal 1.8-7.7 [facility] Comment on above: Performed By: #### C MP, CBC #### [facility] [address] Neutrophils/100 WBC (Bld) 82.8 % Normal . [facility] Comment on above: Performed By: #### C MP, CBC #### [facility] [address] NRBC% 0.1 /100{WBC} Normal 0-0.5 [facility] Comment on above: Performed By: #### C MP, CBC #### [facility] [address] Platelet mean volume (Bld) [Entitic vol] 7.9 fL Normal 6.6-10.1 [facility] Comment on above: Performed By: #### C MP, CBC #### [facility] [address] [place] [address] [place] Platelets (Bld) [#/Vol] 245 10*3/uL Normal 150-450 [facility] Comment on above: Performed By: #### C MP, CBC #### [facility] [address] [place] [address] [place] RBC (Bld) [#/Vol] 4.00 10*6/uL Normal 3.90-5.60 [facility] Comment on above: Performed By: #### C MP, CBC #### [facility] [address] [place] [address] [place] WBC (Bld) [#/Vol] 8.7 10*3/uL Normal 4.1-10.5 [facility] Comment on above: Performed By: #### C MP, CBC #### [facility] [address] Comprehensive Metabolic Pane obdulio 08-09-2024 Albumin [Mass/Vol] 3.7 g/dL Normal 3.5-5.7 [facility] Comment on above: Performed By: #### C MP, CBC #### [place] [address] [place] Albumin/Globulin [Mass ratio] 1.2 {ratio} Normal [facility] Comment on above: Performed By: #### C MP, CBC #### [address] ALP [Catalytic activity/Vol] 69 U/L Normal 34-104 [facility] Comment on above: Performed By: #### C MP, CBC #### [address] ALT [Catalytic activity/Vol] 18 U/L Normal 7-52 [facility] Comment on above: Performed By: #### C MP, CBC #### [address] Anion gap [Moles/Vol] 10.4 mmol/L Normal 6.0-15.0 [facility] Comment on above: Performed By: #### C MP, CBC #### [address] AST [Catalytic activity/Vol] 18 U/L Normal 13-39 [facility] Comment on above: Performed By: #### C MP, CBC #### [address] Bilirubin [Mass/Vol] 0.4 mg/dL Normal 0.3-1.0 [facility] Comment on above: Performed By: #### C MP, CBC #### [place] [address] [place] Calcium [Mass/Vol] 9.4 mg/dL Normal 8.6-10.3 [facility] Comment on above: Performed By: #### C MP, CBC #### [place] [address] [place] Chloride [Moles/Vol] 102 mmol/L Normal 98-107 [facility] Comment on above: Performed By: #### C MP, CBC #### [place] [address] CO2 [Moles/Vol] 26.5 mmol/L Normal 21.0-31.0 [facility] Comment on above: Performed By: #### C MP, CBC #### [address] Creatinine [Mass/Vol] 0.91 mg/dL Normal 0.70-1.30 [facility] Comment on above: Performed By: #### C MP, CBC #### [address] Creatinine Clr Calc Pharmacy 54.53 Normal [facility] Comment on above: Result Comment: PERF ORMED BY: [place] [address] PATHOLOGIST MAINTENANCE PIPEFITTER HEBER SHANNON M.D. Performed By: #### C MP, CBC #### [address] GFR/1.73 sq M.predicted MDRD (S/P/Bld) [Vol rate/Area] mL/min/{1.73_m2} Normal [facility] Comment on above: Performed By: #### C MP, CBC #### [address] Globulin (S) [Mass/Vol] 3.0 g/dL Normal [facility] Comment on above: Performed By: #### C MP, CBC #### [address] Glucose [Mass/Vol] 163 mg/dL High 70-100 [facility] Comment on above: Result Comment: [place] Glucose Reference Range is dependent on time and content of last meal. Glucose of more than 200 mg/dL in a nonstressed, ambulatory subject supports the diagnosis of Diabetes Mellitus. ADA recommended reference range Performed By: #### C MP, CBC #### [address] Potassium [Moles/Vol] 3.9 mmol/L Normal 3.5-5.1 [facility] Comment on above: Performed By: #### C MP, CBC #### [address] Protein [Mass/Vol] 6.7 g/dL Normal 6.4-8.9 [facility] Comment on above: Performed By: #### C MP, CBC #### [address] Sodium [Moles/Vol] 135 mmol/L Low 136-145 [facility] Comment on above: Performed By: #### C MP, CBC #### [address] Urea nitrogen [Mass/Vol] 31 mg/dL High 7-25 [facility] Comment on above: Performed By: #### C MP, CBC #### [address] Complete Blood Count Auto Di ffon 08-02-2024 Basophils (Bld) [#/Vol] 0.1 10*3/uL Normal 0.0-0.2 [facility] Comment on above: Result Comment: PERF ORMED BY: [place] [address] PATHOLOGIST MAINTENANCE PIPEFITTER HEBER SHANNON M.D. Performed By: #### B MP, CBC #### [address] Basophils/100 WBC (Bld) 1.0 % Normal . [facility] Comment on above: Performed By: #### B MP, CBC #### [address] Eosinophils (Bld) [#/Vol] 0.0 10*3/uL Normal 0.0-0.45 [facility] Comment on above: Performed By: #### B MP, CBC #### [address] Eosinophils/100 WBC (Bld) 0.6 % Normal . [facility] Comment on above: Performed By: #### B MP, CBC #### [address] Erythrocyte distribution width (RBC) [Ratio] 14.0 % Normal 12.0-14.8 [facility] Comment on above: Performed By: #### B MP, CBC #### [address] Hematocrit (Bld) [Volume fraction] 35.5 % Low 38.8-50.0 [facility] Comment on above: Performed By: #### B MP, CBC #### [address] Hemoglobin (Bld) [Mass/Vol] 12.1 g/dL Low 13.0-17.0 [facility] Comment on above: Performed By: #### B MP, CBC #### [address] Lymphocytes (Bld) [#/Vol] 0.6 10*3/uL Low 1.00-4.8 [facility] Comment on above: Performed By: #### B MP, CBC #### [address] Lymphocytes/100 WBC (Bld) 10.3 % Normal . [facility] Comment on above: Performed By: #### B MP, CBC #### [address] MCH (RBC) [Entitic mass] 31.4 pg Normal 27.5-35.2 [facility] Comment on above: Performed By: #### B MP, CBC #### [address] MCV (RBC) [Entitic vol] 92.2 fL Normal 83.5-101 [facility] Comment on above: Performed By: #### B MP, CBC #### [address] Mean Corpuscular HGB Conc 34.0 g/dL Normal 32.5-35.6 [facility] Comment on above: Performed By: #### B MP, CBC #### [address] [address] [place] Monocytes (Bld) [#/Vol] 0.9 10*3/uL High 0.0-0.8 [facility] Comment on above: Performed By: #### B MP, CBC #### [address] Monocytes/100 WBC (Bld) 14.8 % Normal . [facility] Comment on above: Performed By: #### B MP, CBC #### [address] Neutrophils (Bld) [#/Vol] 4.5 10*3/uL Normal 1.8-7.7 [facility] Comment on above: Performed By: #### B MP, CBC #### [address] Neutrophils/100 WBC (Bld) 73.3 % Normal . [facility] Comment on above: Performed By: #### B MP, CBC #### [address] NRBC% 0.1 /100{WBC} Normal 0-0.5 [facility] Comment on above: Performed By: #### B MP, CBC #### [address] Platelet mean volume (Bld) [Entitic vol] 7.4 fL Normal 6.6-10.1 [facility] Comment on above: Performed By: #### B MP, CBC #### [address] Platelets (Bld) [#/Vol] 215 10*3/uL Normal 150-450 [facility] Comment on above: Performed By: #### B MP, CBC #### [address] RBC (Bld) [#/Vol] 3.85 10*6/uL Low 3.90-5.60 [facility] Comment on above: Performed By: #### B MP, CBC #### [place] [address] [place] WBC (Bld) [#/Vol] 6.2 10*3/uL Normal 4.1-10.5 [facility] Comment on above: Performed By: #### B MP, CBC #### [address] Comprehensive Metabolic Pane obdulio 08-02-2024 Albumin [Mass/Vol] 3.6 g/dL Normal 3.5-5.7 [facility] Comment on above: Performed By: #### B MP, CBC #### [address] Albumin/Globulin [Mass ratio] 1.3 {ratio} Normal [facility] Comment on above: Performed By: #### B MP, CBC #### [address] ALP [Catalytic activity/Vol] 75 U/L Normal 34-104 [facility] Comment on above: Performed By: #### B LIASNDRO, CBC #### [address] ALT [Catalytic activity/Vol] 12 U/L Normal 7-52 [facility] Comment on above: Performed By: #### B LISANDRO, CBC #### [address] Anion gap [Moles/Vol] 10.1 mmol/L Normal 6.0-15.0 [facility] Comment on above: Performed By: #### B MP, CBC #### [address] AST [Catalytic activity/Vol] 13 U/L Normal 13-39 [facility] Comment on above: Performed By: #### B MP, CBC #### [address] Bilirubin [Mass/Vol] 0.5 mg/dL Normal 0.3-1.0 [facility] Comment on above: Performed By: #### B MP, CBC #### [place] [address] [place] Calcium [Mass/Vol] 8.5 mg/dL Low 8.6-10.3 [facility] Comment on above: Performed By: #### B MP, CBC #### [facility] [address] Chloride [Moles/Vol] 103 mmol/L Normal 98-107 [facility] Comment on above: Performed By: #### B MP, CBC #### [address] CO2 [Moles/Vol] 27.1 mmol/L Normal 21.0-31.0 [facility] Comment on above: Performed By: #### B MP, CBC #### [address] Creatinine [Mass/Vol] 1.03 mg/dL Normal 0.70-1.30 [facility] Comment on above: Performed By: #### B MP, CBC #### [address] Creatinine Clr Calc Pharmacy 48.18 Normal [facility] Comment on above: Result Comment: PERF ORMED BY: [place] [address] PATHOLOGIST MAINTENANCE PIPEFITTER HEBER SHANNON M.D. Performed By: #### B MP, CBC #### [address] GFR/1.73 sq M.predicted MDRD (S/P/Bld) [Vol rate/Area] mL/min/{1.73_m2} Normal [facility] Comment on above: Performed By: #### B MP, CBC #### [place] [address] [place] Globulin (S) [Mass/Vol] 2.7 g/dL Normal [facility] Comment on above: Performed By: #### B MP, CBC #### [address] Glucose [Mass/Vol] 120 mg/dL High 70-100 [facility] Comment on above: Result Comment: [facility] [place] Glucose Reference Range is dependent on time and content of last meal. Glucose of more than 200 mg/dL in a nonstressed, ambulatory subject supports the diagnosis of Diabetes Mellitus. ADA recommended reference range Performed By: #### B MP, CBC #### [facility] [address] Potassium [Moles/Vol] 4.2 mmol/L Normal 3.5-5.1 [facility] Comment on above: Performed By: #### B MP, CBC #### [facility] [address] Protein [Mass/Vol] 6.3 g/dL Low 6.4-8.9 [facility] Comment on above: Performed By: #### B MP, CBC #### [facility] [address] Sodium [Moles/Vol] 136 mmol/L Normal 136-145 [facility] Comment on above: Performed By: #### B MP, CBC #### [facility] [address] [place] [address] [place] Urea nitrogen [Mass/Vol] 35 mg/dL High 7-25 [facility] Comment on above: Performed By: #### B MP, CBC #### [facility] [address] Alanine aminotransferase [En zymatic activity/volume] in Serum or PlasmaOrdered By: Talib Faustin on 07-26-2024 ALT [Catalytic activity/Vol] Alanine aminotransferase [Enzymatic activity/volume] in Serum or Plasma [facility] Albumin [Mass/volume] in Ser um or Plasma by Bromocresol green (BCG) dye binding methoOrdered By: Talib Faustin on 07-26-2024 Albumin BCG dye [Mass/Vol] Albumin [Mass/volume] in Serum or Plasma by Bromocresol green (BCG) dye binding metho 3.5-5.7 [facility] Alkaline phosphatase [Enzyma tic activity/volume] in Serum or PlasmaOrdered By: Talib Faustin on 07-26-2024 ALP [Catalytic activity/Vol] Alkaline phosphatase [Enzymatic activity/volume] in Serum or Plasma 34-104 [facility] [facility] Aspartate aminotransferase [ Enzymatic activity/volume] in Serum or PlasmaOrdered By: [facility] on 07-[facility] AST [Catalytic activity/Vol] Aspartate aminotransferase [Enzymatic activity/volume] in Serum or Plasma 13-39 [facility] Basophils Auto (Bld) [#/Vol] Ordered By: [facility] Ramin on 07-26-2024 Basophils (Bld) [#/Vol] Automated basophil count 0.0-0.2 [facility] Basophils/100 WBC Auto (Bld) Ordered By: [facility] Ramin on 07-26-2024 Basophils/100 WBC (Bld) Automated basophil % . [facility] Bilirubin.total [Mass/volume ] in Serum or PlasmaOrdered By: [facility] Ramin on 07-26-2024 Bilirubin [Mass/Vol] Bilirubin.total [Mass/volume] in Serum or Plasma 0.3-1.0 [facility] Calcium [Mass/volume] in Ser um or PlasmaOrdered By: [facility] Ramin on 07-26-2024 Calcium [Mass/Vol] Calcium [Mass/volume ] in Serum or Plasma 8.6-10.3 [facility] Carbon dioxide, total [Moles /volume] in Serum or PlasmaOrdered By: [facility] on 07-26-2024 CO2 [Moles/Vol] Carbon dioxide, tota l [Moles/volume] in Serum or Plasma 21.0-31.0 [facility] Chloride [Moles/volume] in S stephanie or PlasmaOrdered By: [facility]2024 Chloride [Moles/Vol] Chloride [Moles/vol ume] in Serum or Plasma 98-107 [facility] Complete Blood Count Auto Di ffon 07-26-2024 Basophils (Bld) [#/Vol] 0.1 10*3/uL Normal 0.0-0.2 [facility] Comment on above: Result Comment: PERF ORMED BY: [facility] [address] [place] [address] PATHOLOGIST MAINTENANCE PIPEFITTER HEBER SHANNON M.D. Performed By: #### C MP, CBC #### [place] [address] [place] Basophils/100 WBC (Bld) 1.0 % Normal . [facility] Comment on above: Performed By: #### C MP, CBC #### [place] [address] [place] Eosinophils (Bld) [#/Vol] 0.1 10*3/uL Normal 0.0-0.45 [facility] Comment on above: Performed By: #### C MP, CBC #### [place] [address] [place] Eosinophils/100 WBC (Bld) 1.4 % Normal . [facility] Comment on above: Performed By: #### C MP, CBC #### [address] Erythrocyte distribution width (RBC) [Ratio] 13.6 % Normal 12.0-14.8 [facility] Comment on above: Performed By: #### C MP, CBC #### [place] [address] [place] Hematocrit (Bld) [Volume fraction] 35.4 % Low 38.8-50.0 [facility] Comment on above: Performed By: #### C MP, CBC #### [place] [address] [place] Hemoglobin (Bld) [Mass/Vol] 12.0 g/dL Low 13.0-17.0 [facility] Comment on above: Performed By: #### C MP, CBC #### [place] [address] [place] Lymphocytes (Bld) [#/Vol] 0.9 10*3/uL Low 1.00-4.8 [facility] Comment on above: Performed By: #### C MP, CBC #### [place] [address] [place] Lymphocytes/100 WBC (Bld) 13.0 % Normal . [facility] Comment on above: Performed By: #### C MP, CBC #### [facility] [address] MCH (RBC) [Entitic mass] 31.1 pg Normal 27.5-35.2 [facility] Comment on above: Performed By: #### C MP, CBC #### [facility] [address] MCV (RBC) [Entitic vol] 91.5 fL Normal 83.5-101 [facility] Comment on above: Performed By: #### C MP, CBC #### [address] Mean Corpuscular HGB Conc 34.0 g/dL Normal 32.5-35.6 [facility] Comment on above: Performed By: #### C MP, CBC #### [address] Monocytes (Bld) [#/Vol] 0.7 10*3/uL Normal 0.0-0.8 [facility] Comment on above: Performed By: #### C MP, CBC #### [place] [address] [place] Monocytes/100 WBC (Bld) 9.8 % Normal . [facility] Comment on above: Performed By: #### C MP, CBC #### [address] Neutrophils (Bld) [#/Vol] 5.1 10*3/uL Normal 1.8-7.7 [facility] Comment on above: Performed By: #### C MP, CBC #### [place] [address] [place] Neutrophils/100 WBC (Bld) 74.8 % Normal . [facility] Comment on above: Performed By: #### C MP, CBC #### [address] NRBC% 0.1 /100{WBC} Normal 0-0.5 [facility] Comment on above: Performed By: #### C MP, CBC #### [address] Platelet mean volume (Bld) [Entitic vol] 7.4 fL Normal 6.6-10.1 [facility] Comment on above: Performed By: #### C MP, CBC #### [address] Platelets (Bld) [#/Vol] 217 10*3/uL Normal 150-450 [facility] Comment on above: Performed By: #### C MP, CBC #### [address] RBC (Bld) [#/Vol] 3.87 10*6/uL Low 3.90-5.60 [facility] Comment on above: Performed By: #### C MP, CBC #### [address] WBC (Bld) [#/Vol] 6.9 10*3/uL Normal 4.1-10.5 [facility] Comment on above: Performed By: #### C MP, CBC #### [address] Comprehensive Metabolic Pane obdulio 07-26-2024 Albumin [Mass/Vol] 3.7 g/dL Normal 3.5-5.7 [facility] Comment on above: Performed By: #### C MP, CBC #### [address] Albumin/Globulin [Mass ratio] 1.3 {ratio} Normal [facility] Comment on above: Performed By: #### C MP, CBC #### [address] ALP [Catalytic activity/Vol] 80 U/L Normal 34-104 [facility] Comment on above: Performed By: #### C MP, CBC #### [address] ALT [Catalytic activity/Vol] 13 U/L Normal 7-52 [facility] Comment on above: Performed By: #### C MP, CBC #### [facility] [address] Anion gap [Moles/Vol] 9.4 mmol/L Normal 6.0-15.0 [facility] Comment on above: Performed By: #### C MP, CBC #### [facility] [address] AST [Catalytic activity/Vol] 14 U/L Normal 13-39 [facility] Comment on above: Performed By: #### C MP, CBC #### [facility] [address] Bilirubin [Mass/Vol] 0.5 mg/dL Normal 0.3-1.0 [facility] Comment on above: Performed By: #### C MP, CBC #### [address] Calcium [Mass/Vol] 8.9 mg/dL Normal 8.6-10.3 [facility] Comment on above: Performed By: #### C MP, CBC #### [facility] [address] Chloride [Moles/Vol] 104 mmol/L Normal 98-107 [facility] Comment on above: Performed By: #### C MP, CBC #### [address] CO2 [Moles/Vol] 26.8 mmol/L Normal 21.0-31.0 [facility] Comment on above: Performed By: #### C MP, CBC #### [address] Creatinine [Mass/Vol] 0.87 mg/dL Normal 0.70-1.30 [facility] Comment on above: Performed By: #### C MP, CBC #### [place] [address] [place] Creatinine Clr Calc Pharmacy 57.04 Normal [facility] Comment on above: Result Comment: PERF ORMED BY: [place] [address] PATHOLOGIST MAINTENANCE PIPEFITTER HEBER SHANNON M.D. Performed By: #### C MP, CBC #### [place] [address] [place] GFR/1.73 sq M.predicted MDRD (S/P/Bld) [Vol rate/Area] mL/min/{1.73_m2} Normal [facility] Comment on above: Performed By: #### C MP, CBC #### [place] [address] [place] Globulin (S) [Mass/Vol] 2.9 g/dL Normal [facility] Comment on above: Performed By: #### C MP, CBC #### [address] Glucose [Mass/Vol] 107 mg/dL High 70-100 [facility] Comment on above: Result Comment: [place] Glucose Reference Range is dependent on time and content of last meal. Glucose of more than 200 mg/dL in a nonstressed, ambulatory subject supports the diagnosis of Diabetes Mellitus. ADA recommended reference range Performed By: #### C MP, CBC #### [place] [address] [place] Potassium [Moles/Vol] 4.2 mmol/L Normal 3.5-5.1 [facility] Comment on above: Performed By: #### C MP, CBC #### [place] [address] [place] Protein [Mass/Vol] 6.6 g/dL Normal 6.4-8.9 [facility] Comment on above: Performed By: #### C MP, CBC #### [place] [address] [place] Sodium [Moles/Vol] 136 mmol/L Normal 136-145 [facility] Comment on above: Performed By: #### C MP, CBC #### [place] [address] [place] Urea nitrogen [Mass/Vol] 30 mg/dL High 7-25 [facility] Comment on above: Performed By: #### C MP, CBC #### [facility] [address] [place] [id number] [facility] Creatinine [Mass/volume] in Serum or PlasmaOrdered By: Talib Faustin on 07-26-2024 Creatinine [Mass/Vol] Creatinine [Mass/v olume] in Serum or Plasma 0.70-1.30 [facility] Eosinophils Auto (Bld) [#/Vo l]Ordered By: rick Faustin on 07-26-2024 Eosinophils (Bld) [#/Vol] Automated eosinophil count 0.0-0.45 [facility] Eosinophils/100 WBC Auto (Bl d)Ordered By: rick Faustin on 07-26-2024 Eosinophils/100 WBC (Bld) Automated eosinophil % . [facility] Erythrocyte distribution wid th Auto (RBC) [Ratio]Ordered By: rick Faustin on 07-26-2024 Erythrocyte distribution width (RBC) [Ratio] Erythrocyte distribution width [Ratio] by Automated count 12.0-14.8 [facility] Globulin Calc (S) [Mass/Vol] Ordered By: rick Faustin on 07-26-2024 Globulin (S) [Mass/Vol] Serum globulin measurement by calculation (mass/volume) [facility] Glucose [Mass/volume] in Ser um or PlasmaOrdered By: rick Faustin on 07-26-2024 Glucose [Mass/Vol] Glucose [Mass/volume ] in Serum or Plasma High 70-100 [facility] Comment on above: ADA recommended refe rence rangeRandom Glucose Reference Range is dependent on time and content of last meal. Glucose of more than 200 mg/dL in a nonstressed, ambulatory subject supports the diagnosis of Diabetes Mellitus. Hematocrit Auto (Bld) [Volum e fraction]Ordered By: Talib Faustin on 07-26-2024 Hematocrit (Bld) [Volume fraction] Hematocrit [Volume Fraction] of Blood by Automated count Low 38.8-50.0 [facility] Hemoglobin [Mass/volume] in BloodOrdered By: rick Faustin on 07-26-2024 Hemoglobin (Bld) [Mass/Vol] Hemoglobin [Mass/volume] in Blood Low 13.0-17.0 [facility] Leukocytes [#/volume] correc suzy for nucleated erythrocytes in Blood by Automated counOrdered By: Talib Faustin on 07-26-2024 WBC corrected for nucl RBC Auto (Bld) [#/Vol] Leukocytes [#/volume] corrected for nucleated erythrocytes in Blood by Automated coun 4.1-10.5 [facility] Lymphocytes Auto (Bld) [#/Vo l]Ordered By: Talib Faustin on 07-26-2024 Lymphocytes (Bld) [#/Vol] Lymphocytes [#/volume] in Blood by Automated count Low 1.00-4.8 [facility] Lymphocytes/100 WBC Auto (Bl d)Ordered By: Talib Faustin on 07-26-2024 Lymphocytes/100 WBC (Bld) Lymphocytes/100 leukocytes in Blood by Automated count . [facility] MCH Auto (RBC) [Entitic mass ]Ordered By: Talib Faustin on 07-26-2024 MCH (RBC) [Entitic mass] MCH [Entitic mass] by Automated count 27.5-35.2 [facility] MCHC Auto (RBC) [Mass/Vol]Or dered By: Talib Faustin on 07-26-2024 MCHC (RBC) [Mass/Vol] MCHC [Mass/volume] by Automated count 32.5-35.6 [facility] MCV Auto (RBC) [Entitic vol] Ordered By: Talib Faustin on 07-26-2024 MCV (RBC) [Entitic vol] MCV [Entitic volume] by Automated count 83.5-101 [facility] Monocytes Auto (Bld) [#/Vol] Ordered By: Talib Faustin on 07-26-2024 Monocytes (Bld) [#/Vol] Automated blood monocyte count 0.0-0.8 [facility] Monocytes/100 WBC Auto (Bld) Ordered By: Talib Faustin on 07-26-2024 Monocytes/100 WBC (Bld) Automated monocyte % . [facility] Neutrophils Auto (Bld) [#/Vo l]Ordered By: Talib Faustin on 07-26-2024 Neutrophils (Bld) [#/Vol] Neutrophils [#/volume] in Blood by Automated count 1.8-7.7 [facility] Neutrophils/100 WBC Auto (Bl d)Ordered By: Talib Faustin on 07-26-2024 Neutrophils/100 WBC (Bld) Automated neutrophil % . [facility] No Panel InformationOrdered By: Talib Faustin on 07-26-2024 Estimated GFR (CKD-EPI) > 60.0 mL/Min [facility] Creatinine Clearance (Chem 57.04 [facility] Nucleated erythrocytes [Pres ence] in Blood by Automated countOrdered By: Talib Faustin on 07-26-2024 Nucleated RBC Auto Ql (Bld) Nucleated erythrocytes [Presence] in Blood by Automated count 0-0.5 [facility] Platelet mean volume Auto (B ld) [Entitic vol]Ordered By: Talib Faustin on 07-26-2024 Platelet mean volume (Bld) [Entitic vol] Platelet mean volume [Entitic volume] in Blood by Automated count 6.6-10.1 [facility] Platelets Auto (Bld) [#/Vol] Ordered By: Talib Faustin on 07-26-2024 Platelets (Bld) [#/Vol] Platelets [#/volume] in Blood by Automated count 150-450 [facility] Potassium [Moles/volume] in Serum or PlasmaOrdered By: Talib Faustin on 07-26-2024 Potassium [Moles/Vol] Potassium [Moles/v olume] in Serum or Plasma 3.5-5.1 [facility] Protein [Mass/volume] in Ser um or PlasmaOrdered By: Talib Faustin on 07-26-2024 Protein [Mass/Vol] Protein [Mass/volume ] in Serum or Plasma 6.4-8.9 [facility] RBC Auto (Bld) [#/Vol]Ordere d By: Talib Faustin on 07-26-2024 RBC (Bld) [#/Vol] Erythrocytes [#/volu me] in Blood by Automated count Low 3.90-5.60 [facility] Serum or plasma albumin/glob ulin mass ratioOrdered By: Talib Faustin on 07-26-2024 Albumin/Globulin [Mass ratio] Serum or plasma albumin/globulin mass ratio [facility] Serum or plasma anion gap de terminationOrdered By: Talib Faustin on 07-26-2024 Anion gap [Moles/Vol] Serum or plasma an ion gap determination 6.0-15.0 [facility] Sodium [Moles/volume] in Ser um or PlasmaOrdered By: rick Faustin on 07-26-2024 Sodium [Moles/Vol] Sodium [Moles/volume ] in Serum or Plasma 136-145 [facility] Urea nitrogen [Mass/volume] in Serum or PlasmaOrdered By: Talib Faustin on 07-26-2024 Urea nitrogen [Mass/Vol] Urea nitrogen [Mass/volume] in Serum or Plasma High 7-25 [facility] WBC Auto (Bld) [#/Vol]Ordere d By: Talib Faustin on 07-26-2024 WBC (Bld) [#/Vol] Leukocytes [#/volume ] in Blood by Automated count 4.1-10.5 [facility] Complete Blood Count Auto Di ffon 07-19-2024 Basophils (Bld) [#/Vol] 0.0 10*3/uL Normal 0.0-0.2 [facility] Comment on above: Result Comment: PERF ORMED BY: [place] [address] PATHOLOGIST MAINTENANCE PIPEFITTER HEBER SHANNON M.D. Performed By: #### M G, CMP, CBC #### [facility] [address] [place] [address] [place] Performed By: #### B MP, CBC #### [facility] [address] [place] [address] [place] Basophils/100 WBC (Bld) 0.5 % Normal . [facility] Comment on above: Performed By: #### M G, CMP, CBC #### [facility] [address] [place] [address] [place] Performed By: #### B MP, CBC #### [address] Eosinophils (Bld) [#/Vol] 0.1 10*3/uL Normal 0.0-0.45 [facility] Comment on above: Performed By: #### M G, CMP, CBC #### [address] Performed By: #### B MP, CBC #### [address] Eosinophils/100 WBC (Bld) 1.4 % Normal . [facility] Comment on above: Performed By: #### M G, CMP, CBC #### [address] Performed By: #### B MP, CBC #### [address] Erythrocyte distribution width (RBC) [Ratio] 13.4 % Normal 12.0-14.8 [facility] Comment on above: Performed By: #### M G, CMP, CBC #### [address] Performed By: #### B MP, CBC #### [address] Hematocrit (Bld) [Volume fraction] 35.7 % Low 38.8-50.0 [facility] Comment on above: Performed By: #### M G, CMP, CBC #### [address] Performed By: #### B MP, CBC #### [address] Hemoglobin (Bld) [Mass/Vol] 12.0 g/dL Low 13.0-17.0 [facility] Comment on above: Performed By: #### M G, CMP, CBC #### [address] Performed By: #### B MP, CBC #### [address] Lymphocytes (Bld) [#/Vol] 1.3 10*3/uL Normal 1.00-4.8 [facility] Comment on above: Performed By: #### M G, CMP, CBC #### [address] Performed By: #### B MP, CBC #### [address] Lymphocytes/100 WBC (Bld) 11.6 % Normal . [facility] Comment on above: Performed By: #### M G, CMP, CBC #### [address] Performed By: #### B MP, CBC #### [address] MCH (RBC) [Entitic mass] 30.7 pg Normal 27.5-35.2 [facility] Comment on above: Performed By: #### Adrian G, CMP, CBC #### [address] Performed By: #### B MP, CBC #### [address] MCV (RBC) [Entitic vol] 91.3 fL Normal 83.5-101 [facility] Comment on above: Performed By: #### M G, CMP, CBC #### [address] Performed By: #### B MP, CBC #### [address] Mean Corpuscular HGB Conc 33.7 g/dL Normal 32.5-35.6 [facility] Comment on above: Performed By: #### M G, CMP, CBC #### [address] Performed By: #### B MP, CBC #### [address] Monocytes (Bld) [#/Vol] 0.8 10*3/uL Normal 0.0-0.8 [facility] Comment on above: Performed By: #### M G, CMP, CBC #### [address] Performed By: #### B MP, CBC #### [address] Monocytes/100 WBC (Bld) 7.4 % Normal . [facility] Comment on above: Performed By: #### M G, CMP, CBC #### [address] Performed By: #### B MP, CBC #### [address] Neutrophils (Bld) [#/Vol] 8.7 10*3/uL High 1.8-7.7 [facility] Comment on above: Performed By: #### M G, CMP, CBC #### [address] Performed By: #### B MP, CBC #### [address] Neutrophils/100 WBC (Bld) 79.1 % Normal . [facility] Comment on above: Performed By: #### M G, CMP, CBC #### [address] Performed By: #### B MP, CBC #### [address] NRBC% 0.1 /100{WBC} Normal 0-0.5 [facility] Comment on above: Performed By: #### M G, CMP, CBC #### [address] Performed By: #### B MP, CBC #### [address] Platelet mean volume (Bld) [Entitic vol] 7.9 fL Normal 6.6-10.1 [facility] Comment on above: Performed By: #### M G, CMP, CBC #### [address] Performed By: #### B MP, CBC #### [address] Platelets (Bld) [#/Vol] 179 10*3/uL Normal 150-450 [facility] Comment on above: Performed By: #### M G, CMP, CBC #### [address] Performed By: #### B MP, CBC #### [address] RBC (Bld) [#/Vol] 3.91 10*6/uL Normal 3.90-5.60 [facility] Comment on above: Performed By: #### M G, CMP, CBC #### [address] Performed By: #### B MP, CBC #### [address] WBC (Bld) [#/Vol] 11.0 10*3/uL High 4.1-10.5 [facility] Comment on above: Performed By: #### M G, CMP, CBC #### [address] Performed By: #### B MP, CBC #### [address] Comprehensive Metabolic Pane obdulio 07-19-2024 Albumin [Mass/Vol] 3.8 g/dL Normal 3.5-5.7 [facility] Comment on above: Performed By: #### M G, CMP, CBC #### [facility] [address] [place] [address] Performed By: #### B MP, CBC #### [facility] [address] [place] [address] Albumin/Globulin [Mass ratio] 1.5 {ratio} Normal [facility] Comment on above: Performed By: #### M G, CMP, CBC #### [address] [place] [address] [place] Performed By: #### B MP, CBC #### [address] ALP [Catalytic activity/Vol] 84 U/L Normal 34-104 [facility] Comment on above: Performed By: #### M G, CMP, CBC #### [facility] [address] [place] [address] Performed By: #### B MP, CBC #### [address] ALT [Catalytic activity/Vol] 12 U/L Normal 7-52 [facility] Comment on above: Performed By: #### M Avinash, CMP, CBC #### [address] Performed By: #### B MP, CBC #### [address] Anion gap [Moles/Vol] 10.1 mmol/L Normal 6.0-15.0 [facility] Comment on above: Performed By: #### M G, CMP, CBC #### [facility] [address] [place] [address] Performed By: #### B MP, CBC #### [address] AST [Catalytic activity/Vol] 11 U/L Low 13-39 [facility] Comment on above: Performed By: #### M G, CMP, CBC #### [facility] [address] [place] [address] Performed By: #### B MP, CBC #### [facility] [address] [place] [address] Bilirubin [Mass/Vol] 0.6 mg/dL Normal 0.3-1.0 [facility] Comment on above: Performed By: #### M G, CMP, CBC #### [facility] [address] [place] [address] Performed By: #### B MP, CBC #### [facility] [address] [place] [address] Calcium [Mass/Vol] 9.2 mg/dL Normal 8.6-10.3 [facility] Comment on above: Performed By: #### Adrian Da Silva, CMP, CBC #### [address] Performed By: #### B MP, CBC #### [address] Chloride [Moles/Vol] 107 mmol/L Normal 98-107 [facility] Comment on above: Performed By: #### Adrian Da Silva, CMP, CBC #### [address] Performed By: #### B MP, CBC #### [address] CO2 [Moles/Vol] 25.1 mmol/L Normal 21.0-31.0 [facility] Comment on above: Performed By: #### Adrian Da Silva, CMP, CBC #### [address] Performed By: #### B MP, CBC #### [address] Creatinine [Mass/Vol] 0.95 mg/dL Normal 0.70-1.30 [facility] Comment on above: Performed By: #### Adrian Da Silva, CMP, CBC #### [facility] [address] [place] [address] Performed By: #### B MP, CBC #### [address] Creatinine Clr Calc Pharmacy 56.56 Normal [facility] Comment on above: Performed By: #### M G, CMP, CBC #### [facility] [address] [place] [address] Performed By: #### B MP, CBC #### [address] GFR/1.73 sq M.predicted MDRD (S/P/Bld) [Vol rate/Area] mL/min/{1.73_m2} Normal [facility] Comment on above: Performed By: #### M Avinash, CMP, CBC #### [address] Performed By: #### B MP, CBC #### [address] Globulin (S) [Mass/Vol] 2.6 g/dL Normal [facility] Comment on above: Performed By: #### M G, CMP, CBC #### [address] Performed By: #### B MP, CBC #### [address] Glucose [Mass/Vol] 115 mg/dL High 70-100 [facility] Comment on above: Result Comment: [place] Glucose Reference Range is dependent on time and content of last meal. Glucose of more than 200 mg/dL in a nonstressed, ambulatory subject supports the diagnosis of Diabetes Mellitus. ADA recommended reference range Performed By: #### M G, CMP, CBC #### [address] [address] Performed By: #### B MP, CBC #### [address] Potassium [Moles/Vol] 4.2 mmol/L Normal 3.5-5.1 [facility] Comment on above: Performed By: #### M Avinash, CMP, CBC #### [address] Performed By: #### B MP, CBC #### [address] Protein [Mass/Vol] 6.4 g/dL Normal 6.4-8.9 [facility] Comment on above: Performed By: #### M G, CMP, CBC #### [address] Performed By: #### B MP, CBC #### [address] Sodium [Moles/Vol] 138 mmol/L Normal 136-145 [facility] Comment on above: Performed By: #### M Avinash, CMP, CBC #### [facility] [address] [place] [address] Performed By: #### B MP, CBC #### [facility] [address] [place] [address] Urea nitrogen [Mass/Vol] 30 mg/dL High 7-25 [facility] Comment on above: Performed By: #### M G, CMP, CBC #### [facility] [address] [place] [address] Performed By: #### B MP, CBC #### [facility] [address] [place] [address] Magnesiumon 07-19-2024 Magnesium [Mass/Vol] 1.8 mg/dL Low 1.9-2.7 [facility] Comment on above: Result Comment: PERF ORMED BY: [place] [address] PATHOLOGIST MAINTENANCE PIPEFITTER HEBER SHANNON M.D. Performed By: #### M Avinash, CMP, CBC #### [facility] [address] [place] [address] Performed By: #### B MP, CBC #### [address] Magnesium [Mass/volume] in S stephanie or PlasmaOrdered By: Talib Faustin on 07-19-2024 Magnesium [Mass/Vol] Magnesium [Mass/vol ume] in Serum or Plasma Low 1.9-2.7 [facility] Office Visiton 07-19-2024 Follow-up visit [id number] [address] P 1940 M Date Provider Department Center 07/19/2024 BOY SON [facility] Family History Problem Relation Age of Onset Coronary artery disease Mother Kidney disease Mother Heart failure Mother Family Status - Relation Status Age at Mother Level of Service:69108 MS POSTOP FOLLOW UP VISIT RELATED TO ORIGINAL PX Normal [facility] GLUCOSE POCT GLUCOMETERSon 0 07-17-2024 COMMEMT1 Glu2: Cleaned Meter [facility] Glucose [Mass/Vol] 107 mg/dL [facility] Comment on above: Random Glucose Refer ence Range is dependent on time and content of last meal. Glucose of more than 200 mg/dL in a nonstressed, ambulatory subject supports the diagnosis of Diabetes Mellitus. [facility] Glucose Glucometer (dC) [M ass/Vol]Ordered By: Matteo Melo on 07-17-2024 Glucose [Mass/Vol] Capillary blood gluc ose measurement by glucometer (mass/volume) [facility] Comment on above: Random Glucose Refer ence Range is dependent on time and content of last meal. Glucose of more than 200 mg/dL in a nonstressed, ambulatory subject supports the diagnosis of Diabetes Mellitus. Glucose Poct Glucometerson 0 07-17-2024 Commemt1 Glu2: Cleaned Meter Normal [facility] Comment on above: Result Comment: PERF ORMED BY: [place] [address] PATHOLOGIST MAINTENANCE PIPEFITTER HEBER SHANNON M.D. Performed By: #### G LULS #### Point of Care testing , Performed By: #### C LISANDRO, CBC #### [address] Glucose [Mass/Vol] 107 mg/dL Normal [facility] Comment on above: Result Comment: [place] Glucose Reference Range is dependent on time and content of last meal. Glucose of more than 200 mg/dL in a nonstressed, ambulatory subject supports the diagnosis of Diabetes Mellitus. Performed By: #### G LULS #### Point of Care testing , Performed By: #### C MP, CBC #### [address] No Panel InformationOrdered By: Matteo Melo on 07-17-2024 Bedside Glucose Comment Glu2: cleaned meter [facility] X-ray reportOrdered By: Bruno Urias on 07-17-2024 Study report [facility] Main [place] [address] [place] [address] XRay Report Signed Patient: Jeremie Bennett MR#: [id number] : 1940 Acct:[id number] Age/Sex: 83 / M ADM Date: 5 Loc: [place] Room: Type: [facility] Attending Dr: Matteo Melo MD Copies to: Matteo Melo MD~ Ordering Provider: Matteo Melo MD Date of Service: 07/17/24 XR/XR chest 1V portable: POST PORT SINGLE VIEW CHEST CLINICAL HISTORY: Port placement COMPARISON: None FINDINGS: Right-sided port tip in the SVC. Heart is normal in size. Pacemaker device. No pneumothorax consolidation pleural effusion or free air. XR/XR chest 1V portable IMPRESSION: RIGHT-SIDED PORT TIP IN THE SVC. NO PNEUMOTHORAX. Impression dictated by: Mario Urias Jr., D.O.07/17/2024 2:07 PM Dictation Location: [place] [address] Transcribed By: [facility] 07/17/24 140 Dictated By: Mario Urias Jr, DO 07/17/24 1407 Signed By: 07/17/24 1407 [facility] XR chest 1V portableon 07-17 XR chest 1V portable [facility] Main [address] [address] XRay Report Signed Patient: Jeremie Bennett MR#: [id number] : 1940 Acct:[id number] Age/Sex: 83 / M ADM Date: 07/17/24 Loc: [place] Room: Type: [facility] Attending Dr: Matteo Melo MD Copies to: Matteo Melo MD Ordering Provider: Matteo Melo MD Date of Service: 07/17/24 XR/XR chest 1V portable: POST PORT SINGLE VIEW CHEST CLINICAL HISTORY: Port placement COMPARISON: None FINDINGS: Right-sided port tip in the SVC. Heart is normal in size. Pacemaker device. No pneumothorax consolidation pleural effusion or free air. XR/XR chest 1V portable IMPRESSION: RIGHT-SIDED PORT TIP IN THE SVC. NO PNEUMOTHORAX. Impression dictated by: Mario Urias Jr., D.O.07/17/2024 2:07 PM Dictation Location: [facility]-22 Transcribed By: [facility] 07/17/241406 Dictated By: Mario Urias Jr, DO 07/17/241406 Signed By: 07/17/24 1407 Normal [facility] XR chest 1V portable [facility] [address] XRay Report Signed Patient: Jeremie Bennett MR#: [id number] : 1940 Acct:[id number] Age/Sex: 83 / M ADM Date: 07/17/24 Loc: [place] Room: Type: [facility] Attending Dr: Matteo Melo MD Copies to: Matteo Melo MD Ordering Provider: Matteo Melo MD Date of Service: 07/17/24 XR/XR chest 1V portable: POST PORT SINGLE VIEW CHEST CLINICAL HISTORY: Port placement COMPARISON: None FINDINGS: Right-sided port tip in the SVC. Heart is normal in size. Pacemaker device. No pneumothorax consolidation pleural effusion or free air. XR/XR chest 1V portable IMPRESSION: RIGHT-SIDED PORT TIP IN THE SVC. NO PNEUMOTHORAX. Impression dictated by: Mario Urias Jr., D.O.07/17/2024 2:07 PM Dictation Location: [facility]-22 Transcribed By: PERLA 07/17/241406 Dictated By: Mario Urias Jr, DO 07/17/24 140 Signed By: 07/17/24 1407 Normal [facility] Alanine aminotransferase [En zymatic activity/volume] in Serum or PlasmaOrdered By: Talib Faustin on 07-12-2024 ALT [Catalytic activity/Vol] Alanine aminotransferase [Enzymatic activity/volume] in Serum or Plasma [facility] Albumin [Mass/volume] in Ser um or Plasma by Bromocresol green (BCG) dye binding methoOrdered By: Talib Faustin on 07-12-2024 Albumin BCG dye [Mass/Vol] Albumin [Mass/volume] in Serum or Plasma by Bromocresol green (BCG) dye binding metho 3.5-5.7 [facility] Alkaline phosphatase [Enzyma tic activity/volume] in Serum or PlasmaOrdered By: Talib Faustin on 07-12-2024 ALP [Catalytic activity/Vol] Alkaline phosphatase [Enzymatic activity/volume] in Serum or Plasma 34-104 [facility] Aspartate aminotransferase [ Enzymatic activity/volume] in Serum or PlasmaOrdered By: rick Faustin on 07-12-2024 AST [Catalytic activity/Vol] Aspartate aminotransferase [Enzymatic activity/volume] in Serum or Plasma Low 13-39 [facility] Basophils Auto (Bld) [#/Vol] Ordered By: rick Faustin on 07-12-2024 Basophils (Bld) [#/Vol] Automated basophil count 0.0-0.2 [facility] Basophils/100 WBC Auto (Bld) Ordered By: rick Faustin on 07-12-2024 Basophils/100 WBC (Bld) Automated basophil % . [facility] Bilirubin.total [Mass/volume ] in Serum or PlasmaOrdered By: rick Faustin on 07-12-2024 Bilirubin [Mass/Vol] Bilirubin.total [Mass/volume] in Serum or Plasma 0.3-1.0 [facility] Calcium [Mass/volume] in Ser um or PlasmaOrdered By: rick Faustin on 07-12-2024 Calcium [Mass/Vol] Calcium [Mass/volume ] in Serum or Plasma 8.6-10.3 [facility] Carbon dioxide, total [Moles /volume] in Serum or PlasmaOrdered By: rick Hargrove on 07-12-2024 CO2 [Moles/Vol] Carbon dioxide, tota l [Moles/volume] in Serum or Plasma 21.0-31.0 [facility] Chloride [Moles/volume] in S stephanie or PlasmaOrdered By: rick Faustin on 07-12-2024 Chloride [Moles/Vol] Chloride [Moles/vol ume] in Serum or Plasma 98-107 [facility] Complete Blood Count Auto Di ffon 07-12-2024 Basophils (Bld) [#/Vol] 0.0 10*3/uL Normal 0.0-0.2 [facility] Comment on above: Result Comment: PERF ORMED BY: [place] [address] PATHOLOGIST MAINTENANCE PIPEFITTER HEBER SHANNON M.D. Performed By: #### C BC, CMP, MG #### [address] Performed By: #### B MP, CBC #### [address] Basophils/100 WBC (Bld) 0.3 % Normal . [facility] Comment on above: Performed By: #### C BC, CMP, MG #### [address] Performed By: #### B MP, CBC #### [address] Eosinophils (Bld) [#/Vol] 0.2 10*3/uL Normal 0.0-0.45 [facility] Comment on above: Performed By: #### C BC, CMP, MG #### [address] Performed By: #### B MP, CBC #### [address] Eosinophils/100 WBC (Bld) 1.7 % Normal . [facility] Comment on above: Performed By: #### C BC, CMP, MG #### [address] Performed By: #### B MP, CBC #### [address] Erythrocyte distribution width (RBC) [Ratio] 13.7 % Normal 12.0-14.8 [facility] Comment on above: Performed By: #### C BC, CMP, MG #### [address] Performed By: #### B MP, CBC #### [address] Hematocrit (Bld) [Volume fraction] 38.0 % Low 38.8-50.0 [facility] Comment on above: Performed By: #### C BC, CMP, MG #### [address] Performed By: #### B MP, CBC #### [address] Hemoglobin (Bld) [Mass/Vol] 12.6 g/dL Low 13.0-17.0 [facility] Comment on above: Performed By: #### C BC, CMP, MG #### [address] Performed By: #### B MP, CBC #### [address] Lymphocytes (Bld) [#/Vol] 2.0 10*3/uL Normal 1.00-4.8 [facility] Comment on above: Performed By: #### C BC, CMP, MG #### [address] Performed By: #### B MP, CBC #### [address] Lymphocytes/100 WBC (Bld) 19.2 % Normal . [facility] Comment on above: Performed By: #### C BC, CMP, MG #### [address] Performed By: #### B MP, CBC #### [address] MCH (RBC) [Entitic mass] 30.7 pg Normal 27.5-35.2 [facility] Comment on above: Performed By: #### C BC, CMP, MG #### [address] Performed By: #### B MP, CBC #### [address] MCV (RBC) [Entitic vol] 92.2 fL Normal 83.5-101 [facility] Comment on above: Performed By: #### C BC, CMP, MG #### [address] Performed By: #### B MP, CBC #### [address] Mean Corpuscular HGB Conc 33.3 g/dL Normal 32.5-35.6 [facility] Comment on above: Performed By: #### C BC, CMP, MG #### [address] Performed By: #### B MP, CBC #### [address] Monocytes (Bld) [#/Vol] 0.8 10*3/uL Normal 0.0-0.8 [facility] Comment on above: Performed By: #### C BC, CMP, MG #### [address] Performed By: #### B MP, CBC #### [address] Monocytes/100 WBC (Bld) 7.5 % Normal . [facility] Comment on above: Performed By: #### C BC, CMP, MG #### [address] Performed By: #### B MP, CBC #### [address] Neutrophils (Bld) [#/Vol] 7.3 10*3/uL Normal 1.8-7.7 [facility] Comment on above: Performed By: #### C BC, CMP, MG #### [address] Performed By: #### B MP, CBC #### [address] Neutrophils/100 WBC (Bld) 71.3 % Normal . [facility] Comment on above: Performed By: #### C BC, CMP, MG #### [address] Performed By: #### B MP, CBC #### [address] NRBC% 0.1 /100{WBC} Normal 0-0.5 [facility] Comment on above: Performed By: #### C BC, CMP, MG #### [address] Performed By: #### B MP, CBC #### [address] Platelet mean volume (Bld) [Entitic vol] 9.0 fL Normal 6.6-10.1 [facility] Comment on above: Performed By: #### C BC, CMP, MG #### [address] Performed By: #### B MP, CBC #### [address] Platelets (Bld) [#/Vol] 197 10*3/uL Normal 150-450 [facility] Comment on above: Performed By: #### C BC, CMP, MG #### [address] Performed By: #### B MP, CBC #### [address] RBC (Bld) [#/Vol] 4.12 10*6/uL Normal 3.90-5.60 [facility] Comment on above: Performed By: #### C BC, CMP, MG #### [address] Performed By: #### B MP, CBC #### [address] WBC (Bld) [#/Vol] 10.2 10*3/uL Normal 4.1-10.5 [facility] Comment on above: Performed By: #### C BC, CMP, MG #### [address] Performed By: #### B MP, CBC #### [address] Comprehensive Metabolic Pane obdulio 07-12-2024 Albumin [Mass/Vol] 3.9 g/dL Normal 3.5-5.7 [facility] Comment on above: Performed By: #### C BC, BMP #### [address] Performed By: #### B MP, CBC #### [address] Albumin/Globulin [Mass ratio] 1.6 {ratio} Normal [facility] Comment on above: Performed By: #### C BC, BMP #### [address] Performed By: #### B MP, CBC #### [address] ALP [Catalytic activity/Vol] 86 U/L Normal 34-104 [facility] Comment on above: Performed By: #### C BC, BMP #### [address] Performed By: #### B MP, CBC #### [address] ALT [Catalytic activity/Vol] 15 U/L Normal 7-52 [facility] Comment on above: Performed By: #### C BC, BMP #### [address] Performed By: #### B MP, CBC #### [address] Anion gap [Moles/Vol] 12.2 mmol/L Normal 6.0-15.0 [facility] Comment on above: Performed By: #### C BC, BMP #### [address] Performed By: #### B MP, CBC #### [address] AST [Catalytic activity/Vol] 11 U/L Low 13-39 [facility] Comment on above: Performed By: #### C BC, BMP #### [address] Performed By: #### B MP, CBC #### [address] Bilirubin [Mass/Vol] 0.7 mg/dL Normal 0.3-1.0 [facility] Comment on above: Performed By: #### C BC, BMP #### [facility] [address] [place] [address] Performed By: #### B MP, CBC #### [address] Calcium [Mass/Vol] 9.0 mg/dL Normal 8.6-10.3 [facility] Comment on above: Performed By: #### C BC, BMP #### [address] Performed By: #### B MP, CBC #### [address] Chloride [Moles/Vol] 102 mmol/L Normal 98-107 [facility] Comment on above: Performed By: #### C BC, BMP #### [facility] [address] [place] [address] Performed By: #### B MP, CBC #### [address] CO2 [Moles/Vol] 27.6 mmol/L Normal 21.0-31.0 [facility] Comment on above: Performed By: #### C BC, BMP #### [facility] [address] [place] [address] Performed By: #### B MP, CBC #### [facility] [address] [place] [address] Creatinine [Mass/Vol] 1.01 mg/dL Normal 0.70-1.30 [facility] Comment on above: Performed By: #### C BC, BMP #### [address] Performed By: #### B MP, CBC #### [address] Creatinine Clr Calc Pharmacy 53.09 Normal [facility] Comment on above: Performed By: #### C BC, BMP #### [address] Performed By: #### B MP, CBC #### [address] GFR/1.73 sq M.predicted MDRD (S/P/Bld) [Vol rate/Area] mL/min/{1.73_m2} Normal [facility] Comment on above: Performed By: #### C BC, BMP #### [address] Performed By: #### B MP, CBC #### [address] Globulin (S) [Mass/Vol] 2.5 g/dL Normal [facility] Comment on above: Performed By: #### C BC, BMP #### [address] Performed By: #### B MP, CBC #### [address] Glucose [Mass/Vol] 120 mg/dL High 70-100 [facility] Comment on above: Result Comment: [place] Glucose Reference Range is dependent on time and content of last meal. Glucose of more than 200 mg/dL in a nonstressed, ambulatory subject supports the diagnosis of Diabetes Mellitus. ADA recommended reference range Performed By: #### C BC, BMP #### [address] Performed By: #### B MP, CBC #### [address] Potassium [Moles/Vol] 4.8 mmol/L Normal 3.5-5.1 [facility] Comment on above: Performed By: #### C BC, BMP #### [facility] [address] [place] [address] Performed By: #### B MP, CBC #### [address] Protein [Mass/Vol] 6.4 g/dL Normal 6.4-8.9 [facility] Comment on above: Performed By: #### C BC, BMP #### [address] Performed By: #### B MP, CBC #### [address] Sodium [Moles/Vol] 137 mmol/L Normal 136-145 [facility] Comment on above: Performed By: #### C BC, BMP #### [address] Performed By: #### B MP, CBC #### [address] Urea nitrogen [Mass/Vol] 26 mg/dL High 7-25 [facility] Comment on above: Performed By: #### C BC, BMP #### [address] Performed By: #### B MP, CBC #### [address] Creatinine [Mass/volume] in Serum or PlasmaOrdered By: Talib Faustin on 07-12-2024 Creatinine [Mass/Vol] Creatinine [Mass/v olume] in Serum or Plasma 0.70-1.30 [facility] Eosinophils Auto (Bld) [#/Vo l]Ordered By: Talib Faustin on 07-12-2024 Eosinophils (Bld) [#/Vol] Automated eosinophil count 0.0-0.45 [facility] Eosinophils/100 WBC Auto (Bl d)Ordered By: Talib Faustin on 07-12-2024 Eosinophils/100 WBC (Bld) Automated eosinophil % . [facility] Erythrocyte distribution wid th Auto (RBC) [Ratio]Ordered By: Talib Faustin on 07-12-2024 Erythrocyte distribution width (RBC) [Ratio] Erythrocyte distribution width [Ratio] by Automated count 12.0-14.8 [facility] Globulin Calc (S) [Mass/Vol] Ordered By: rick Faustin on 07-12-2024 Globulin (S) [Mass/Vol] Serum globulin measurement by calculation (mass/volume) [facility] Glucose [Mass/volume] in Ser um or PlasmaOrdered By: rick Faustin on 07-12-2024 Glucose [Mass/Vol] Glucose [Mass/volume ] in Serum or Plasma High 70-100 [facility] Comment on above: ADA recommended refe rence rangeRandom Glucose Reference Range is dependent on time and content of last meal. Glucose of more than 200 mg/dL in a nonstressed, ambulatory subject supports the diagnosis of Diabetes Mellitus. Hematocrit Auto (Bld) [Volum e fraction]Ordered By: Talib Faustin on 07-12-2024 Hematocrit (Bld) [Volume fraction] Hematocrit [Volume Fraction] of Blood by Automated count Low 38.8-50.0 [facility] Hemoglobin [Mass/volume] in BloodOrdered By: Talib Faustin on 07-12-2024 Hemoglobin (Bld) [Mass/Vol] Hemoglobin [Mass/volume] in Blood Low 13.0-17.0 [facility] Leukocytes [#/volume] correc suzy for nucleated erythrocytes in Blood by Automated counOrdered By: Talib Faustin on 07-12-2024 WBC corrected for nucl RBC Auto (Bld) [#/Vol] Leukocytes [#/volume] corrected for nucleated erythrocytes in Blood by Automated coun 4.1-10.5 [facility] Lymphocytes Auto (Bld) [#/Vo l]Ordered By: Talib Faustin on 07-12-2024 Lymphocytes (Bld) [#/Vol] Lymphocytes [#/volume] in Blood by Automated count 1.00-4.8 [facility] Lymphocytes/100 WBC Auto (Bl d)Ordered By: Talib Faustin on 07-12-2024 Lymphocytes/100 WBC (Bld) Lymphocytes/100 leukocytes in Blood by Automated count . [facility] MCH Auto (RBC) [Entitic mass ]Ordered By: Talib Faustin on 07-12-2024 MCH (RBC) [Entitic mass] MCH [Entitic mass] by Automated count 27.5-35.2 [facility] MCHC Auto (RBC) [Mass/Vol]Or dered By: Talib Faustin on 07-12-2024 MCHC (RBC) [Mass/Vol] MCHC [Mass/volume] by Automated count 32.5-35.6 [facility] MCV Auto (RBC) [Entitic vol] Ordered By: Talib Faustin on 07-12-2024 MCV (RBC) [Entitic vol] MCV [Entitic volume] by Automated count 83.5-101 [facility] Magnesiumon 07-12-2024 Magnesium [Mass/Vol] 1.9 mg/dL Normal 1.9-2.7 [facility] Comment on above: Result Comment: PERF ORMED BY: [place] [address] PATHOLOGIST MAINTENANCE PIPEFITTER HEBER SHANNON M.D. Performed By: #### C BC, BMP #### [facility] [address] [place] [address] Performed By: #### B MP, CBC #### [facility] [address] [place] [address] Magnesium [Mass/volume] in S stephanie or PlasmaOrdered By: Talib Faustin on 07-12-2024 Magnesium [Mass/Vol] Magnesium [Mass/vol ume] in Serum or Plasma 1.9-2.7 [facility] Monocytes Auto (Bld) [#/Vol] Ordered By: Talib Faustin on 07-12-2024 Monocytes (Bld) [#/Vol] Automated blood monocyte count 0.0-0.8 [facility] Monocytes/100 WBC Auto (Bld) Ordered By: Talib Faustin on 07-12-2024 Monocytes/100 WBC (Bld) Automated monocyte % . [facility] Neutrophils Auto (Bld) [#/Vo l]Ordered By: Talib Faustin on 07-12-2024 Neutrophils (Bld) [#/Vol] Neutrophils [#/volume] in Blood by Automated count 1.8-7.7 [facility] Neutrophils/100 WBC Auto (Bl d)Ordered By: Talib Faustin on 07-12-2024 Neutrophils/100 WBC (Bld) Automated neutrophil % . [facility] No Panel InformationOrdered By: Talib Faustin on 07-12-2024 Estimated GFR (CKD-EPI) > 60.0 mL/Min [facility] Creatinine Clearance (Chem 53.09 [facility] Nucleated erythrocytes [Pres ence] in Blood by Automated countOrdered By: Talib Faustin on 07-12-2024 Nucleated RBC Auto Ql (Bld) Nucleated erythrocytes [Presence] in Blood by Automated count 0-0.5 [facility] Platelet mean volume Auto (B ld) [Entitic vol]Ordered By: Talib Faustin on 07-12-2024 Platelet mean volume (Bld) [Entitic vol] Platelet mean volume [Entitic volume] in Blood by Automated count 6.6-10.1 [facility] Platelets Auto (Bld) [#/Vol] Ordered By: Talib Faustin on 07-12-2024 Platelets (Bld) [#/Vol] Platelets [#/volume] in Blood by Automated count 150-450 [facility] Potassium [Moles/volume] in Serum or PlasmaOrdered By: Talib Faustin on 07-12-2024 Potassium [Moles/Vol] Potassium [Moles/v olume] in Serum or Plasma 3.5-5.1 [facility] Protein [Mass/volume] in Ser um or PlasmaOrdered By: Talib Faustin on 07-12-2024 Protein [Mass/Vol] Protein [Mass/volume ] in Serum or Plasma 6.4-8.9 [facility] RBC Auto (Bld) [#/Vol]Ordere d By: Talib Faustin on 07-12-2024 RBC (Bld) [#/Vol] Erythrocytes [#/volu me] in Blood by Automated count 3.90-5.60 [facility] Serum or plasma albumin/glob ulin mass ratioOrdered By: Talib Faustin on 07-12-2024 Albumin/Globulin [Mass ratio] Serum or plasma albumin/globulin mass ratio [facility] Serum or plasma anion gap de terminationOrdered By: Talib Faustin on 07-12-2024 Anion gap [Moles/Vol] Serum or plasma an ion gap determination 6.0-15.0 [facility] Sodium [Moles/volume] in Ser um or PlasmaOrdered By: rick Faustin on 07-12-2024 Sodium [Moles/Vol] Sodium [Moles/volume ] in Serum or Plasma 136-145 [facility] Urea nitrogen [Mass/volume] in Serum or PlasmaOrdered By: Talib Faustin on 07-12-2024 Urea nitrogen [Mass/Vol] Urea nitrogen [Mass/volume] in Serum or Plasma High 7-25 [facility] WBC Auto (Bld) [#/Vol]Ordere d By: Talib Faustin on 07-12-2024 WBC (Bld) [#/Vol] Leukocytes [#/volume ] in Blood by Automated count 4.1-10.5 [facility] ANESon 07-10-2024 ANES ----- ----- Attestation signed by Stacey Patel MD at 07/10/2024 8:41 AM By using the attestations below, the signing clinician agrees that I have read and verify that the documentation has been personally reviewed by me and ensure that the documentation accurately reflects the encounter. GC: I performed the kim portion(s) of the service and participated in the management and confirm the resident's documentation. Please note there may be an additional personal documentation from me. ----- Patient: Jeremie Bennett Procedure Information Date/Time: 07/10/2430 Procedure: PPM generator change - dual Location: [facility] EP / [facility] (Cath) Providers: Stacey Patel MD Clinical information reviewed: [employer] Physical Exam Airway Mallampati: III Cardiovascular Rhythm: regular Rate: normal (-) murmur Dental Pulmonary (-) decreased breath sounds Abdominal (+) obese Anesthesia Plan ASA 3 other (Conscious Sedation) intravenous induction Anesthetic plan and risks discussed with patient. Use of blood products discussed with patient who consented to blood products. Plan discussed with attending. Additional Equipment Requests [facility] HPon 07-10-2024 ----- ----- Attestation signed by Stacey Patel MD at 07/10/2024 8:41 AM By using the attestations below, the signing clinician agrees that I have read and verify that the documentation has been personally reviewed by me and ensure that the documentation accurately reflects the encounter. GC: I performed the kim portion(s) of the service and participated in the management and confirm the resident's documentation. Please note there may be an additional personal documentation from me. ----- [facility] Consult Note [facility] Reason for visit: gen change 07/10/2024 Here for gen change. HPI: Jeremie Bennett is a 83 y.o. year old with past medical history of hypertension, hyperlipidemia CAD was noted to have a pacemaker placed by Dr. Shi for ?SND which is approaching BILLY. He has previously been seen by and was noted to have a Medtronic dual-chamber pacemaker. Today's device check reveals that he is low blood pressures with 97% atrial pacing and 30% ventricular pacing. No evidence of atrial fibrillation seen. The device is currently programmed MVP mode. Also needs cleared for procedure on his throat, tentatively scheduled for 05/11/2024. Denies chest pain, SOB, palpitations, and syncope. PMH: Medical History Past Medical History: Diagnosis Date Abnormal ECG Bradycardia Coronary artery disease Diabetes mellitus ([facility]/HCC) Heart valve disease Hyperlipidemia VT (ventricular tachycardia) ([facility]) PSH: Surgical History Past Surgical History: Procedure Laterality Date ABLATION OF DYSRHYTHMIC FOCUS CARDIAC CATHETERIZATION INSERT / REPLACE / REMOVE PACEMAKER SH: Social Determinants of Health Tobacco Use: Medium Risk (05/11/2024) Received from [facility] Patient History Smoking Tobacco Use: Former Smokeless Tobacco Use: Former Passive Exposure: Not on file Alcohol Use: Not on file Financial Resource Strain: Not on file Food Insecurity: Not on file Transportation Needs: Not on file Physical Activity: Not on file Stress: Not on file Social Connections: Not on file Intimate Partner Violence: Unknown (07/08/2023) [place] Safety & Environment Fear of Current or Ex-Partner: Not on file Emotionally Abused: Not on file Physically Abused: Not on file Sexually Abused: Not on file Physically or Sexually Abused: Not on file Depression: Not at risk (04/07/2024) Received from [facility] PHQ-2 Patient Health Questionnaire-2 Score: 0 Housing Stability: Not on file Utilities: Not on file Health Literacy: Not on file Allergies: Allergies Allergies Allergen Reactions Adhesive Tape-Silicones Niacin Weight: 77.6kg Visit Vitals BP 130/68 (BP Location: Right arm, Patient Position: Sitting) Pulse 66 Ht 1.651 m (5' 5 ) Wt 77.6 kg (171 lb) SpO2 94% BMI 28.46 kg/m??? Smoking Status Former BSA 1.89 m??? Meds: Medications Ordered Prior to Encounter Current Outpatient Medications on File Prior to Visit Medication Sig Dispense Refill amLODIPine (Norvasc) 5 mg tablet TAKE 1 TABLET BY MOUTH IN THE MORNING 100 tablet 3 aspirin 81 mg EC tablet Take 1 tablet every day by oral route. clopidogrel (Plavix) 75 mg tablet Take 1 tablet (75 mg) by mouth in the morning. 100 tablet 3 famotidine (Pepcid) 20 mg tablet Take 20 mg by mouth in the morning. furosemide (Lasix) 20 mg tablet Take 1 tablet every day by oral route. irbesartan (Avapro) 300 mg tablet TAKE 1 TABLET BY MOUTH IN THE MORNING 100 tablet 3 isosorbide mononitrate ER (Imdur) 30 mg 24 hr tablet Take 1 tablet (30 mg) by mouth in the morning. 100 tablet 3 metFORMIN XR (Glucophage-XR) 500 mg 24 hr tablet Take 500 mg by mouth in the morning and at bedtime. omeprazole (PriLOSEC) [address] capsule Take 40 mg by mouth before breakfast. Do not crush or chew. rosuvastatin (Crestor) 10 mg tablet Take 1 tablet by mouth in the morning. sotalol (Betapace) 80 mg tablet TAKE ONE-HALF TABLET BY MOUTH IN THE MORNING AND AT BEDTIME 100 tablet 3 tiZANidine (Zanaflex) 4 mg tablet TAKE 1/2 TO 1 TABLET BY MOUTH EVERY DAY AT NIGHT zonisamide (Zonegran) 25 mg capsule No current facility-administered medications on file prior to visit. ROS: Review of Systems Constitutional: Positive for malaise/fatigue. Cardiovascular: Positive for leg swelling (minimal). Musculoskeletal: Positive for arthritis and back pain. Gastrointestinal: Positive for nausea. Neurological: Positive for light-headedness and loss of balance. All other systems reviewed and are negative. Physical Exam: Constitutional General Appearance: well-nourished, well-developed, appears stated age Level of Distress: comfortable Eyes HITESH Neck Neck: supple, trachea midline Carotid Arteries: bilateral normal upstroke, no b (more content not included)... [facility] NURSNOTEon 07-10-2024 NURSNOTE RN educated pt on d/ c instructions. This included: site care, limited physical activity, resume normal diet, future appointments, medications, and moderate sedation instructions. RN educated pt on when to notify physician and when to go to the hospital. RN provided pt with arm sling and educated pt on importance of not lifting arm above 90 degrees, weight bearing more than 5lbs, and driving for the next 4 weeks. RN encouraged pt to voice any questions or concerns, and answered any questions or concerns if pt verbalized. Pt was wheeled off of unit with all of belongings. [facility] NURSNOTE CHG wipes and betadi ne nasal swabs completed. [facility] Orders Onlyon 07-10-2024 Orders Only [id number] [address] P 1940 M Date Provider Department Center 07/10/2024 ELIF GONZALEZ [facility] Family History Problem Relation Age of Onset Coronary artery disease Mother Kidney disease Mother Heart failure Mother Family Status - Relation Status Age at Mother [facility] CBC w/ Auto DiffOrdered By: SYSTEM SYSTEM on 07-03-2024 Band form neutrophils/100 WBC (Bld) 8.0 % High 0.0-6.0 [facility] Comment on above: Performed By: #### 2 [id number] #### [facility] [address] [place] [address] Basophils (Bld) [#/Vol] 0.0 E9/L Normal 0.0-0.2 [facility] Comment on above: Performed By: #### 2 [id number] #### [facility] [address] [place] [address] Eosinophils (Bld) [#/Vol] 0.0 E9/L Normal 0.0-0.5 [facility] Comment on above: Performed By: #### 2 [id number] #### [facility] [address] [place] [address] Eosinophils/100 WBC (Bld) 0.0 % Normal 0.0-8.0 [facility] Comment on above: Performed By: #### 2 [id number] #### [facility] [address] [place] [address] Erythrocyte distribution width (RBC) [Ratio] 13.9 % Normal 10.9-14.2 [facility] Comment on above: Performed By: #### 2 [id number] #### [facility] [address] [place] [address] Hematocrit (Bld) [Volume fraction] 39.7 % Normal 37.7-49.0 [facility] Comment on above: Performed By: #### 2 [id number] #### [facility] [address] [place] [address] Hemoglobin (Bld) [Mass/Vol] 13.3 g/dL Low 13.5-17.5 [facility] Comment on above: Performed By: #### 2 936655 #### [facility] [address] [place] [address] Lymphocytes (Bld) [#/Vol] 2.2 E9/L Normal 1.0-4.0 [facility] Comment on above: Performed By: #### 2 [id number] #### [facility] [address] [place] [address] Lymphocytes/100 WBC (Bld) 20.0 % Normal 14.0-50.0 [facility] Comment on above: Performed By: #### 2 [id number] #### [facility] [address] [place] [address] MCH (RBC) [Entitic mass] 31.3 pg Normal 27.0-34.0 [facility] Comment on above: Performed By: #### 2 [id number] #### [facility] [address] [place] [address] MCHC (RBC) [Mass/Vol] 33.4 g/dL Normal 31.4-36.0 [facility] Comment on above: Performed By: #### 2 [id number] #### [facility] [address] [place] [address] MCV (RBC) [Entitic vol] 93.5 fL Normal 80.0-100.0 [facility] Comment on above: Performed By: #### 2 [id number] #### [facility] [address] [place] [address] Monocytes (Bld) [#/Vol] 0.6 E9/L Normal 0.2-1.0 [facility] Comment on above: Performed By: #### 2 204819 #### [facility] [address] [place] [address] Myelocytes/100 WBC (Bld) 3.0 % High 0.0-0.0 [facility] Comment on above: Performed By: #### 2 [id number] #### [facility] [address] [place] [address] Neutrophils (Bld) [#/Vol] 7.4 E9/L Invalid Interpretation Code [facility] Comment on above: Performed By: #### 2 [id number] #### [facility] [address] [place] [address] Platelet 271.0 E9/L Normal 150.0-500. 0 [facility] Comment on above: Performed By: #### 2 [id number] #### [facility] [address] [place] [address] Platelet mean volume (Bld) [Entitic vol] 9.2 fL Normal 6.4-10.8 [facility] Comment on above: Performed By: #### 2 996126 #### [facility] [address] [place] [address] RBC (Bld) [#/Vol] 4.2 E12/L Low 4.3-5.9 [facility] Comment on above: Performed By: #### 2 585124 #### [facility] [address] [place] [address] Segmented neutrophils/100 WBC (Bld) 62.0 % Normal 36.0-75.0 [facility] Comment on above: Performed By: #### 2 [id number] #### [facility] [address] [place] [address] Variant lymphocytes/100 WBC (Bld) 1.0 % High 0.0-0.0 [facility] Comment on above: Performed By: #### 2 [id number] #### [facility] [address] [place] [address] WBC corrected for nucl RBC Auto (Bld) [#/Vol] 10.5 E9/L Normal 4.0-11.0 [facility] Comment on above: Performed By: #### 2 556951 #### [facility] [address] [place] [address] CBC w/ Auto Diffon 5 RBC size Nom (Bld) NORMAL Invalid Interpretation Code [facility] Comment on above: Performed By: #### 2 [id number] #### [facility] [address] [place] [address] CHEMISTRYOrdered By: SYSTEM SYSTEM on 07-03-2024 Albumin/Globulin [Mass ratio] 1.5 {ratio} Normal 1.1 - 2.2 [facility] ALP [Catalytic activity/Vol] 70 [iU]/d Normal 21 - 98 Int._Unit/ L [facility] ALT No additional P-5'-P [Catalytic activity/Vol] 24 [iU]/d Normal 6 - 46 Int._Unit/ L [facility] AST [Catalytic activity/Vol] 20 [iU]/d Normal 5 - 43 Int._Unit/ L [facility] Urea nitrogen/Creatinine [Mass ratio] 20 mg/mg Normal 10 - 20 [facility] CMPOrdered By: SYSTEM SYSTEM on 07-03-2024 Albumin [Mass/Vol] 4.0 g/dL Normal 3.3-5.0 [facility] Comment on above: Performed By: #### 2 517355 #### [facility] [address] [place] [address] Anion gap [Moles/Vol] 10 mmol/L Normal 6-16 [facility] Comment on above: Performed By: #### 2 586318 #### [facility] [address] [place] [address] Bilirubin [Mass/Vol] 0.3 mg/dL Normal 0.0-1.1 [facility] Comment on above: Performed By: #### 2 886422 #### [facility] [address] [place] [address] Calcium [Mass/Vol] 9.1 mg/dL Normal 8.9-11.1 [facility] Comment on above: Performed By: #### 2 078744 #### [facility] [address] [place] [address] Chloride [Moles/Vol] 107 mmol/L Normal 101-111 [facility] Comment on above: Performed By: #### 2 607999 #### [facility] [address] [place] [address] CO2 [Moles/Vol] 28 mmol/L Normal 21-31 [facility] Comment on above: Performed By: #### 2 799890 #### [facility] [address] [place] [address] Creatinine [Mass/Vol] 1.0 mg/dL Normal 0.5-1.3 [facility] Comment on above: Performed By: #### 2 162236 #### [facility] [address] [place] [address] Globulin (S) [Mass/Vol] 2.7 g/dL Normal 1.4-4.0 [facility] Comment on above: Performed By: #### 2 277416 #### [facility] [address] [place] [address] Glucose [Mass/Vol] 138 mg/dL Normal 55-199 [facility] Comment on above: Performed By: #### 2 020256 #### [facility] [address] [place] [address] Potassium [Moles/Vol] 4.5 mmol/L Normal 3.5-5.3 [facility] Comment on above: Performed By: #### 2 495004 #### [facility] [address] [place] [address] Protein [Mass/Vol] 6.7 g/dL Normal 6.0-7.8 [facility] Comment on above: Performed By: #### 2 643315 #### [facility] [address] [place] [address] Sodium [Moles/Vol] 140 mmol/L Normal 135-145 [facility] Comment on above: Performed By: #### 2 812342 #### [facility] [address] [place] [address] Urea nitrogen [Mass/Vol] 20 mg/dL Normal 5-21 [facility] Comment on above: Performed By: #### 2 196255 #### [facility] [address] [place] [address] CMPon 07-03-2024 Albumin/Globulin (S) [Mass conc ratio] 1.5 Normal 1.1-2.2 [facility] Comment on above: Performed By: #### 2 [id number] #### [facility] [address] [place] [address] ALP [Catalytic activity/Vol] 70 Int._Unit/L Normal 21-98 [facility] Comment on above: Performed By: #### 2 [id number] #### [facility] [address] [place] [address] ALT No additional P-5'-P [Catalytic activity/Vol] 24 Int._Unit/L Normal 6-46 [facility] Comment on above: Performed By: #### 2 159014 #### [facility] [address] [place] [address] AST [Catalytic activity/Vol] 20 Int._Unit/L Normal 5-43 [facility] Comment on above: Performed By: #### 2 436807 #### [facility] [address] [place] [address] Urea nitrogen/Creatinine [Mass ratio] 20 No Units Normal 10-20 [facility] Comment on above: Performed By: #### 2 137670 #### [facility] [address] [place] [address] HEMATOLOGYOrdered By: SYSTEM SYSTEM on 07-03-2024 Basophils/100 WBC (Bld) 0.0 % Normal 0.0 - 2.0 % [facility] Monocytes/100 WBC (Bld) 6.0 % Normal 4.0 - 14.0 % [facility] RBC size Nom (Bld) NORMAL *NA* (07/03/24 12:00 PM) Invalid Interpretation Code [facility] MagnesiumOrdered By: SYSTEM SYSTEM on 07-03-2024 Magnesium [Mass/Vol] 2.0 mg/dL Normal 1.3-2.4 [facility] Comment on above: Performed By: #### 2 [id number] #### [facility] [address] [place] [address] eGFROrdered By: RAKAN Campbell on 07-03-2024 eGFR 74 mL/min/1.73 m2 Normal >=59 [facility] Comment on above: Performed By: #### 1 [id number] #### [facility] [address] [place] [address] 36on 06-28-[address] Arellano pt w as called to schedule cardiac clearance appt. Pt stated he would rather be seen in [place], so I advised pt to call and schedule with them. [facility] No Panel Informationon 06-23 [employer] Audio indicated a mild to severe sensorineural hearing loss 250-8000 Hz, bilaterally. [facility] Basic Metabolic Panelon Anion gap [Moles/Vol] 8.5 mmol/L Normal 6.0-15.0 [facility] Comment on above: Performed By: #### C BC, BMP #### [address] Performed By: #### B MP, CBC #### [address] Calcium [Mass/Vol] 9.0 mg/dL Normal 8.6-10.3 [facility] Comment on above: Result Comment: PERF ORMED BY: [place] [address] PATHOLOGIST MAINTENANCE PIPEFITTER HEBER SHANNON M.D. Performed By: #### C BC, BMP #### [place] [address] [place] Performed By: #### B MP, CBC #### [place] [address] [place] Chloride [Moles/Vol] 110 mmol/L High 98-107 [facility] Comment on above: Performed By: #### C BC, BMP #### [address] Performed By: #### B MP, CBC #### [address] CO2 [Moles/Vol] 24.5 mmol/L Normal 21.0-31.0 [facility] Comment on above: Performed By: #### C BC, BMP #### [address] Performed By: #### B MP, CBC #### [address] Creatinine [Mass/Vol] 0.97 mg/dL Normal 0.70-1.30 [facility] Comment on above: Performed By: #### C BC, BMP #### [address] Performed By: #### B MP, CBC #### [address] GFR/1.73 sq M.predicted MDRD (S/P/Bld) [Vol rate/Area] mL/min/{1.73_m2} Normal [facility] Comment on above: Performed By: #### C BC, BMP #### [address] Performed By: #### B MP, CBC #### [address] Glucose [Mass/Vol] 118 mg/dL High 70-100 [facility] Comment on above: Result Comment: [place] Glucose Reference Range is dependent on time and content of last meal. Glucose of more than 200 mg/dL in a nonstressed, ambulatory subject supports the diagnosis of Diabetes Mellitus. ADA recommended reference range Performed By: #### C BC, BMP #### [address] Performed By: #### B MP, CBC #### [address] Potassium [Moles/Vol] 4.0 mmol/L Normal 3.5-5.1 [facility] Comment on above: Performed By: #### C BC, BMP #### [address] Performed By: #### B MP, CBC #### [facility] [address] Sodium [Moles/Vol] 139 mmol/L Normal 136-145 [facility] Comment on above: Performed By: #### C BC, BMP #### [address] Performed By: #### B MP, CBC #### [address] Urea nitrogen [Mass/Vol] 19 mg/dL Normal 7-25 [facility] Comment on above: Performed By: #### C BC, BMP #### [address] Performed By: #### B MP, CBC #### [address] Basic metabolic 1998 panelon 06-22-2024 Anion gap [Moles/Vol] 8.5 mmol/L 6.0 - 15.0 meq/L [facility] Calcium [Mass/Vol] 9 mg/dL 8.6 - 10. 3 mg/dL [facility] Chloride [Moles/Vol] 110 mmol/L High 98 - 10 7 mmol/L [facility] CO2 [Moles/Vol] 24.5 mmol/L 21.0 - 31.0 mmol/L [facility] Creatinine (U) [Mass/Vol] 0.97 mg/dL 0.70 - 1.30 mg/dL [facility] ESTIMATED GFR mL/Min [facility] Glucose [Mass/Vol] 118 mg/dL High 70 - 100 mg/dL [facility] Comment on above: Random Glucose Refer ence Range is dependent on time and content of last meal. Glucose of more than 200 mg/dL in a nonstressed, ambulatory subject supports the diagnosis of Diabetes Mellitus. ADA recommended reference range Interpretation and review of laboratory results Abnormal [facility] Potassium [Moles/Vol] 4 mmol/L 3.5 - 5.1 mmol/L [facility] Sodium [Moles/Vol] 139 mmol/L 136 - 145 mmol/L [facility] Urea nitrogen [Mass/Vol] 19 mg/dL 7 - 25 mg/dL [facility] Basophils Auto (Bld) [#/Vol] Ordered By: Matteo Melo on 06-22-2024 Basophils (Bld) [#/Vol] Automated basophil count 0.0-0.2 [facility] Basophils/100 WBC Auto (Bld) Ordered By: Matteo Melo on 06-22-2024 Basophils/100 WBC (Bld) Automated basophil % . [facility] CBC W Auto Differential pane l (Bld)on 06-22-2024 Basophils (Bld) [#/Vol] 0.1 10*3/uL 0.0 - 0.2 10*3/uL [facility] Basophils/100 WBC Manual cnt (Syn fld) 0.7 % . [facility] Eosinophils (Bld) [#/Vol] 0.4 10*3/uL 0.0 - 0.45 10*3/uL [facility] Eosinophils/100 WBC Manual cnt (Syn fld) 5 % . [facility] Erythrocyte distribution width (RBC) [Ratio] 13.4 % 12.0 - 14.8 % [facility] Hematocrit (Bld) [Volume fraction] 40.7 % 38.8 - 50.0 % [facility] Hemoglobin (Bld) [Mass/Vol] 13.7 g/dL 13.0 - 17.0 g/dL [facility] Lymphocytes (Bld) [#/Vol] 2.5 10*3/uL 1.00 - 4.8 10*3/uL [facility] Lymphocytes/100 WBC Manual cnt (Syn fld) 30.2 % . [facility] MCH (RBC) [Entitic mass] 31 pg 27.5 - 35.2 pg [facility] MCHC (RBC) [Mass/Vol] 33.7 g/dL 32.5 - 35.6 g/dL [facility] MCV (RBC) [Entitic vol] 92 fL 83.5 - 101 fL [facility] Monocytes (Bld) [#/Vol] 0.7 10*3/uL 0.0 - 0.8 10*3/uL [facility] Monocytes+Macrophages/ 100 WBC Manual cnt (Syn fld) 8.8 % . [facility] Neutrophils (Bld) [#/Vol] 4.6 10*3/uL 1.8 - 7.7 10*3/uL [facility] Neutrophils/100 WBC Manual cnt (Syn fld) 55.3 % . [facility] NRBC 0.2 /100{WBC} 0 - 0.5 /100{WBC} [facility] Platelet mean volume (Bld) [Entitic vol] 8.9 fL 6.6 - 10.1 fL [facility] Platelets (Bld) [#/Vol] 234 10*3/uL 150 - 450 10*3/uL [facility] RBC LM.HPF (Urine sed) [#/Area] 4.43 10*6/uL 3.90 - 5.60 10*6/uL [facility] WBC (Bld) [#/Vol] 8.4 10*3/uL 4.1 - 10.5 10*3/uL [facility] WBC LM.HPF (Urine sed) [#/Area] 8.4 10*3/uL 4.1 - 10.5 10*3/uL [facility] Calcium [Mass/volume] in Ser um or PlasmaOrdered By: Matteo Melo on 06-22-2024 Calcium [Mass/Vol] Calcium [Mass/volume ] in Serum or Plasma 8.6-10.3 [facility] Carbon dioxide, total [Moles /volume] in Serum or PlasmaOrdered By: Matteo Melo on 06-22-2024 CO2 [Moles/Vol] Carbon dioxide, tota l [Moles/volume] in Serum or Plasma 21.0-31.0 [facility] Chloride [Moles/volume] in S stephanie or PlasmaOrdered By: Matteo Melo on 06-22-2024 Chloride [Moles/Vol] Chloride [Moles/vol ume] in Serum or Plasma High 98-107 [facility] Complete Blood Count Auto Di ffon 06-22-2024 Basophils (Bld) [#/Vol] 0.1 10*3/uL Normal 0.0-0.2 [facility] Comment on above: Result Comment: PERF ORMED BY: [place] [address] PATHOLOGIST MAINTENANCE PIPEFITTER HEBER SHANNON M.D. Performed By: #### C BC, BMP #### [address] Performed By: #### B MP, CBC #### [address] Basophils/100 WBC (Bld) 0.7 % Normal . [facility] Comment on above: Performed By: #### C BC, BMP #### [address] Performed By: #### B MP, CBC #### [address] Eosinophils (Bld) [#/Vol] 0.4 10*3/uL Normal 0.0-0.45 [facility] Comment on above: Performed By: #### C BC, BMP #### [address] Performed By: #### B MP, CBC #### [address] Eosinophils/100 WBC (Bld) 5.0 % Normal . [facility] Comment on above: Performed By: #### C BC, BMP #### [address] Performed By: #### B MP, CBC #### [address] Erythrocyte distribution width (RBC) [Ratio] 13.4 % Normal 12.0-14.8 [facility] Comment on above: Performed By: #### C BC, BMP #### [address] Performed By: #### B MP, CBC #### [address] Hematocrit (Bld) [Volume fraction] 40.7 % Normal 38.8-50.0 [facility] Comment on above: Performed By: #### C BC, BMP #### [address] Performed By: #### B MP, CBC #### [address] Hemoglobin (Bld) [Mass/Vol] 13.7 g/dL Normal 13.0-17.0 [facility] Comment on above: Performed By: #### C BC, BMP #### [address] Performed By: #### B MP, CBC #### [address] Lymphocytes (Bld) [#/Vol] 2.5 10*3/uL Normal 1.00-4.8 [facility] Comment on above: Performed By: #### C BC, BMP #### [address] Performed By: #### B MP, CBC #### [address] Lymphocytes/100 WBC (Bld) 30.2 % Normal . [facility] Comment on above: Performed By: #### C BC, BMP #### [address] Performed By: #### B MP, CBC #### [address] MCH (RBC) [Entitic mass] 31.0 pg Normal 27.5-35.2 [facility] Comment on above: Performed By: #### C BC, BMP #### [address] Performed By: #### B MP, CBC #### [address] MCV (RBC) [Entitic vol] 92.0 fL Normal 83.5-101 [facility] Comment on above: Performed By: #### C BC, BMP #### [address] Performed By: #### B MP, CBC #### [address] Mean Corpuscular HGB Conc 33.7 g/dL Normal 32.5-35.6 [facility] Comment on above: Performed By: #### C BC, BMP #### [address] Performed By: #### B MP, CBC #### [address] Monocytes (Bld) [#/Vol] 0.7 10*3/uL Normal 0.0-0.8 [facility] Comment on above: Performed By: #### C BC, BMP #### [address] Performed By: #### B MP, CBC #### [address] Monocytes/100 WBC (Bld) 8.8 % Normal . [facility] Comment on above: Performed By: #### C BC, BMP #### [address] Performed By: #### B MP, CBC #### [address] Neutrophils (Bld) [#/Vol] 4.6 10*3/uL Normal 1.8-7.7 [facility] Comment on above: Performed By: #### C BC, BMP #### [address] Performed By: #### B MP, CBC #### [address] Neutrophils/100 WBC (Bld) 55.3 % Normal . [facility] Comment on above: Performed By: #### C BC, BMP #### [address] Performed By: #### B MP, CBC #### [address] NRBC% 0.2 /100{WBC} Normal 0-0.5 [facility] Comment on above: Performed By: #### C BC, BMP #### [address] Performed By: #### B MP, CBC #### [address] Platelet mean volume (Bld) [Entitic vol] 8.9 fL Normal 6.6-10.1 [facility] Comment on above: Performed By: #### C BC, BMP #### [address] Performed By: #### B MP, CBC #### [address] Platelets (Bld) [#/Vol] 234 10*3/uL Normal 150-450 [facility] Comment on above: Performed By: #### C BC, BMP #### [address] Performed By: #### B MP, CBC #### [address] RBC (Bld) [#/Vol] 4.43 10*6/uL Normal 3.90-5.60 [facility] Comment on above: Performed By: #### C BC, BMP #### [address] Performed By: #### B MP, CBC #### [address] WBC (Bld) [#/Vol] 8.4 10*3/uL Normal 4.1-10.5 [facility] Comment on above: Performed By: #### C BC, BMP #### [address] Performed By: #### B MP, CBC #### [address] Creatinine [Mass/volume] in Serum or PlasmaOrdered By: Matteo Melo on 06-22-2024 Creatinine [Mass/Vol] Creatinine [Mass/v olume] in Serum or Plasma 0.70-1.30 [facility] ECG 12 lead ECGon 06-22-2024 ECG 12 lead ECG [facility] [address] [address] Electrocardiograph Report Signed Patient: Jeremie Bennett MR#: [id number] : 1940 Acct:[id number] Age/Sex: 83 / M ADM Date: 06/22/24 Loc: PS Room: Type: DEP CLI Attending Dr: Matteo Melo MD Ordering Provider: Matteo Melo MD Date of Service: 06/22/2411/08/1456 ECG/ECG 12 lead ECG: pst Copies to: Test Reason : Blood Pressure : */* mmHG Vent. Rate : 61 BPM Atrial Rate : * BPM P-R Int : * ms QRS Dur : 152 ms QT Int : 448 ms P-R-T Axes : * -71 23 degrees QTcB Int : 450 ms AV dual-paced complexes with pvcc s Left axis deviation Right bundle branch block Abnormal ECG No previous ECGs available Confirmed by AMILCAR SANTIAGO MD ([id number]) on 06/23/2024 3:17:12 PM Referred By: Electronically Signed By: AMILCAR SANTIAGO MD Transcribed By: MUS Signed By Amilcar Santiago MD 0 06/23/24 1517 Normal [facility] ECG 12 lead ECG [facility] Main [address] [address] Electrocardiograph Report Signed Patient: Jeremie Bennett MR#: [id number] : 1940 Acct:[id number] Age/Sex: 83 / M ADM Date: 06/22/24 Loc: PS Room: Type: DEP CLI Attending Dr: Matteo Melo MD Ordering Provider: Matteo Melo MD Date of Service: 06/22/2411/08/1456 ECG/ECG 12 lead ECG: pst Copies to: Test Reason : Blood Pressure : */* mmHG Vent. Rate : 61 BPM Atrial Rate : * BPM P-R Int : * ms QRS Dur : 152 ms QT Int : 448 ms P-R-T Axes : * -71 23 degrees QTcB Int : 450 ms AV dual-paced complexes with pvcc s Left axis deviation Right bundle branch block Abnormal ECG No previous ECGs available Confirmed by AMILCAR SANTIAGO MD ([id number]) on 06/23/2024 3:17:12 PM Referred By: Electronically Signed By: AMILCAR SANTIAGO MD Transcribed By: MUS Signed By Amilcar Santiago MD 0 06/23/24 1517 Normal [facility] Eosinophils Auto (Bld) [#/Vo l]Ordered By: Matteo Melo on 06-22-2024 Eosinophils (Bld) [#/Vol] Automated eosinophil count 0.0-0.45 [facility] Eosinophils/100 WBC Auto (Bl d)Ordered By: Matteo Melo on 06-22-2024 Eosinophils/100 WBC (Bld) Automated eosinophil % . [facility] Erythrocyte distribution wid th Auto (RBC) [Ratio]Ordered By: Matteo Melo on 06-22-2024 Erythrocyte distribution width (RBC) [Ratio] Erythrocyte distribution width [Ratio] by Automated count 12.0-14.8 [facility] Glucose [Mass/volume] in Ser um or PlasmaOrdered By: Matteo Melo on 06-22-2024 Glucose [Mass/Vol] Glucose [Mass/volume ] in Serum or Plasma High 70-100 [facility] Comment on above: ADA recommended refe rence rangeRandom Glucose Reference Range is dependent on time and content of last meal. Glucose of more than 200 mg/dL in a nonstressed, ambulatory subject supports the diagnosis of Diabetes Mellitus. Hematocrit Auto (Bld) [Volum e fraction]Ordered By: Matteo Melo on 06-22-2024 Hematocrit (Bld) [Volume fraction] Hematocrit [Volume Fraction] of Blood by Automated count 38.8-50.0 [facility] Hemoglobin [Mass/volume] in BloodOrdered By: Matteo Melo on 06-22-2024 Hemoglobin (Bld) [Mass/Vol] Hemoglobin [Mass/volume] in Blood 13.0-17.0 [facility] Leukocytes [#/volume] correc suzy for nucleated erythrocytes in Blood by Automated counOrdered By: Matteo Melo on 06-22-2024 WBC corrected for nucl RBC Auto (Bld) [#/Vol] Leukocytes [#/volume] corrected for nucleated erythrocytes in Blood by Automated coun 4.1-10.5 [facility] Lymphocytes Auto (Bld) [#/Vo l]Ordered By: Matteo Melo on 06-22-2024 Lymphocytes (Bld) [#/Vol] Lymphocytes [#/volume] in Blood by Automated count 1.00-4.8 [facility] Lymphocytes/100 WBC Auto (Bl d)Ordered By: Matteo Melo on 06-22-2024 Lymphocytes/100 WBC (Bld) Lymphocytes/100 leukocytes in Blood by Automated count . [facility] MCH Auto (RBC) [Entitic mass ]Ordered By: Matteo Melo on 06-22-2024 MCH (RBC) [Entitic mass] MCH [Entitic mass] by Automated count 27.5-35.2 [facility] MCHC Auto (RBC) [Mass/Vol]Or dered By: Matteo Melo on 06-22-2024 MCHC (RBC) [Mass/Vol] MCHC [Mass/volume] by Automated count 32.5-35.6 [facility] MCV Auto (RBC) [Entitic vol] Ordered By: Matteo Melo on 06-22-2024 MCV (RBC) [Entitic vol] MCV [Entitic volume] by Automated count 83.5-101 [facility] Monocytes Auto (Bld) [#/Vol] Ordered By: Matteo Melo on 06-22-2024 Monocytes (Bld) [#/Vol] Automated blood monocyte count 0.0-0.8 [facility] Monocytes/100 WBC Auto (Bld) Ordered By: Matteo Melo on 06-22-2024 Monocytes/100 WBC (Bld) Automated monocyte % . [facility] Neutrophils Auto (Bld) [#/Vo l]Ordered By: Matteo Melo on 06-22-2024 Neutrophils (Bld) [#/Vol] Neutrophils [#/volume] in Blood by Automated count 1.8-7.7 [facility] Neutrophils/100 WBC Auto (Bl d)Ordered By: Matteo Melo on 06-22-2024 Neutrophils/100 WBC (Bld) Automated neutrophil % . [facility] No Panel InformationOrdered By: Matteo Melo on 06-22-2024 Estimated GFR (CKD-EPI) > 60.0 mL/Min [facility] Creatinine Clearance (Chem N/A [facility] Nucleated erythrocytes [Pres ence] in Blood by Automated countOrdered By: Matteo Melo on 06-22-2024 Nucleated RBC Auto Ql (Bld) Nucleated erythrocytes [Presence] in Blood by Automated count 0-0.5 [facility] Platelet mean volume Auto (B ld) [Entitic vol]Ordered By: Matteo Melo on 06-22-2024 Platelet mean volume (Bld) [Entitic vol] Platelet mean volume [Entitic volume] in Blood by Automated count 6.6-10.1 [facility] Platelets Auto (Bld) [#/Vol] Ordered By: Matteo Melo on 06-22-2024 Platelets (Bld) [#/Vol] Platelets [#/volume] in Blood by Automated count 150-450 [facility] Potassium [Moles/volume] in Serum or PlasmaOrdered By: Matteo Melo on 06-22-2024 Potassium [Moles/Vol] Potassium [Moles/v olume] in Serum or Plasma 3.5-5.1 [facility] RBC Auto (Bld) [#/Vol]Ordere d By: Matteo Melo on 06-22-2024 RBC (Bld) [#/Vol] Erythrocytes [#/volu me] in Blood by Automated count 3.90-5.60 [facility] Serum or plasma anion gap de terminationOrdered By: Matteo Melo on 06-22-2024 Anion gap [Moles/Vol] Serum or plasma an ion gap determination 6.0-15.0 [facility] Sodium [Moles/volume] in Ser um or PlasmaOrdered By: Matteo Melo on 06-22-2024 Sodium [Moles/Vol] Sodium [Moles/volume ] in Serum or Plasma 136-145 [facility] Urea nitrogen [Mass/volume] in Serum or PlasmaOrdered By: Matteo Melo on 06-22-2024 Urea nitrogen [Mass/Vol] Urea nitrogen [Mass/volume] in Serum or Plasma 7 [facility] WBC Auto (Bld) [#/Vol]Ordere d By: Matteo Melo on 06-22-2024 WBC (Bld) [#/Vol] Leukocytes [#/volume ] in Blood by Automated count 4.1-10.5 [facility] Surgical pathology studyon 0 06-05-2024 Surgical pathology study Pathology report.total SEE COMMENT Surgical Pathology Case: [id number] Authorizing Provider: Mary Ly MD Collected: 06/05/2024 1609 Ordering Location: [facility] Received: 06/05/[address] [place] [address] Pathologist: Alessandro Arzate DDS Specimen: LYMPH NODE BIOPSY Path report.final diagnosis SEE COMMENT Lymph node, core biopsy: - Metastatic non-keratinizing squamous cell carcinoma, see note. 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 P16 by immunohistochemistry: Equivocal. 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 Reference Range (p16): Negative: <50% strong nuclear and cytoplasmic invasive tumor cell staining Equivocal: 50-70% strong nuclear and cytoplasmic invasive tumor cell staining Positive: >70% strong nuclear and cytoplasmic invasive tumor cell staining Laboratory comment By the signature on this report, the individual or group listed as making the Final Interpretation/Diagnosis certifies that they have reviewed this case. RESIDENT REVIEW The gross and/or microscopic findings were reviewed in conjunction with pathology resident, Pilo Loya MD. Path report.relevant Hx SCC Path report.gross observation SEE COMMENT Received in formalin, labeled with the patient's name and hospital number and lymph node biopsy , is a cylindrical fragment of wilcox soft tissue measuring 0.8 cm in length by less than 0.1 cm in diameter. The specimen is submitted in toto in one cassette. [facility] AP ASR DISCLAIMER One or more of the reagents used to perform assays on this specimen MAY have contained components considered to be analyte specific reagents (ASR's). ASR's have not been cleared or approved by the U.S. Food and Drug Administration. These assays were developed and their performance characteristics determined by the Department of Pathology at [facility]. The FDA does not require this test to go through premarket FDA review. This test is used for clinical purposes. It should not be regarded as investigational or for research. This laboratory is certified under the Clinical Laboratory Improvement Amendments (CLIA) as qualified to perform high complexity clinical laboratory testing. The assays were performed with appropriate positive and negative controls which stained appropriately. Normal [facility] US GUIDED BIOPSY LYMPH NODE SUPERFICIALon 06-05-2024 US GUIDED BIOPSY LYMPH NODE SUPERFICIAL Interpreted By: Gaby Perez and Guirguis James STUDY: US GUIDED BIOPSY LYMPH NODE SUPERFICIAL; 06/05/2024 1:53 pm INDICATION: Signs/Symptoms:left neck enlarged lymph node seen on PET. COMPARISON: PET-CT dated 03/27/2024 ACCESSION NUMBER(S): [id number] ORDERING CLINICIAN: MARY LY TECHNIQUE: INTERVENTIONALIST(S): MD Juan Elena MD CONSENT: The patient/patient's POA/next of kin was informed of the nature of the proposed procedure. The purposes, alternatives, risks, and benefits were explained and discussed. All questions were answered and consent was obtained. SEDATION: Moderate conscious IV sedation services (supervision of administration, induction, and maintenance) were provided by the physician performing the procedure with intravenous fentanyl 50mcg and versed 0.5mg from 0296-8915. The physician was assisted by an independent trained observer, an interventional radiology nurse, in the continuous monitoring of patient level of consciousness and physiologic status. MEDICATION/CONTRAST: None. TIME OUT: A time out was performed immediately prior to procedure start with the interventional team, correctly identifying the patient name, date of , MRN, procedure, anatomy (including marking of site and side), patient position, procedure consent form, relevant laboratory and imaging test results, antibiotic administration, safety precautions, and procedure-specific equipment needs. COMPLICATIONS: No immediate adverse events identified. FINDINGS: The patient was placed in the supine position. Limited sonographic images of the left cervical chain were obtained for purposes of needle guidance, which demonstrated an enlarged pathologic appearing lymph node. The area of concern was prepped and draped under sterile technique. 1% lidocaine was injected subcutaneously and then into the deeper tissues surrounding the targeted area for biopsy. An 18 gauge core biopsy needle was passed via a 17 gauge coaxial introducer needle to obtain a total of 1 core samples. Postprocedure images demonstrate no evidence for hemorrhage. The patient tolerated the procedure well and there were no immediate complications. Specimen(s) sent to pathology. IMPRESSION: 1. Status post successful ultrasound guided core needle biopsy of an enlarged left cervical chain pathologic appearing lymph node. Specimen(s) Sent to pathology. I was present for and/or performed the critical portions of the procedure and immediately available throughout the entire procedure. I personally reviewed the image(s) / study and interpretation. I agree with the findings as stated. Performed and dictated at [facility]. MACRO: None. Signed by: Gaby Perez 06/05/2024 9:02 PM Dictation workstation: [id number] [facility] US guidance for percutaneous biopsy of Lymph nodeon 06-05-2024 1. Status post succe ssful ultrasound guided core needle biopsy of an enlarged left cervical chain pathologic appearing lymph node. Specimen(s) Sent to pathology. I was present for and/or performed the critical portions of the procedure and immediately available throughout the entire procedure. I personally reviewed the image(s) / study and interpretation. I agree with the findings as stated. Performed and dictated at [facility]. MACRO: None. Signed by: Gaby Perez 06/05/2024 9:02 PM Dictation workstation: [id number] [facility] Interpreted By: Gaby Perez and Guirguis James STUDY: US GUIDED BIOPSY LYMPH NODE SUPERFICIAL; 06/05/2024 1:53 pm INDICATION: Signs/Symptoms:left neck enlarged lymph node seen on PET. COMPARISON: PET-CT dated 03/27/2024 ACCESSION NUMBER(S): [id number] ORDERING CLINICIAN: MARY LY TECHNIQUE: INTERVENTIONALIST(S): MD Juan Elena MD CONSENT: The patient/patient's POA/next of kin was informed of the nature of the proposed procedure. The purposes, alternatives, risks, and benefits were explained and discussed. All questions were answered and consent was obtained. SEDATION: Moderate conscious IV sedation services (supervision of administration, induction, and maintenance) were provided by the physician performing the procedure with intravenous fentanyl 50mcg and versed 0.5mg from 9979-8371. The physician was assisted by an independent trained observer, an interventional radiology nurse, in the continuous monitoring of patient level of consciousness and physiologic status. MEDICATION/CONTRAST: None. TIME OUT: A time out was performed immediately prior to procedure start with the interventional team, correctly identifying the patient name, date of , MRN, procedure, anatomy (including marking of site and side), patient position, procedure consent form, relevant laboratory and imaging test results, antibiotic administration, safety precautions, and procedure-specific equipment needs. COMPLICATIONS: No immediate adverse events identified. FINDINGS: The patient was placed in the supine position. Limited sonographic images of the left cervical chain were obtained for purposes of needle guidance, which demonstrated an enlarged pathologic appearing lymph node. The area of concern was prepped and draped under sterile technique. 1% lidocaine was injected subcutaneously and then into the deeper tissues surrounding the targeted area for biopsy. An 18 gauge core biopsy needle was passed via a 17 gauge coaxial introducer needle to obtain a total of 1 core samples. Postprocedure images demonstrate no evidence for hemorrhage. The patient tolerated the procedure well and there were no immediate complications. Specimen(s) sent to pathology. [facility] Gaby Perez MD - 06/05/2024 Interpreted By: Gaby Perez and Guirguis James STUDY: US GUIDED BIOPSY LYMPH NODE SUPERFICIAL; 06/05/2024 1:53 pm INDICATION: Signs/Symptoms:left neck enlarged lymph node seen on PET. COMPARISON: PET-CT dated 03/27/2024 ACCESSION NUMBER(S): [id number] ORDERING CLINICIAN: MARY LY TECHNIQUE: INTERVENTIONALIST(S): MD Juan Elena MD CONSENT: The patient/patient's POA/next of kin was informed of the nature of the proposed procedure. The purposes, alternatives, risks, and benefits were explained and discussed. All questions were answered and consent was obtained. SEDATION: Moderate conscious IV sedation services (supervision of administration, induction, and maintenance) were provided by the physician performing the procedure with intravenous fentanyl 50mcg and versed 0.5mg from 8610-7536. The physician was assisted by an independent trained observer, an interventional radiology nurse, in the continuous monitoring of patient level of consciousness and physiologic status. MEDICATION/CONTRAST: None. TIME OUT: A time out was performed immediately prior to procedure start with the interventional team, correctly identifying the patient name, date of , MRN, procedure, anatomy (including marking of site and side), patient position, procedure consent form, relevant laboratory and imaging test results, antibiotic administration, safety precautions, and procedure-specific equipment needs. COMPLICATIONS: No immediate adverse events identified. FINDINGS: The patient was placed in the supine position. Limited sonographic images of the left cervical chain were obtained for purposes of needle guidance, which demonstrated an enlarged pathologic appearing lymph node. The area of concern was prepped and draped under sterile technique. 1% lidocaine was injected subcutaneously and then into the deeper tissues surrounding the targeted area for biopsy. An 18 gauge core biopsy needle was passed via a 17 gauge coaxial introducer needle to obtain a total of 1 core samples. Postprocedure images demonstrate no evidence for hemorrhage. The patient tolerated the procedure well and there were no immediate complications. Specimen(s) sent to pathology. IMPRESSION: 1. Status post successful ultrasound guided core needle biopsy of an enlarged left cervical chain pathologic appearing lymph node. Specimen(s) Sent to pathology. I was present for and/or performed the critical portions of the procedure and immediately available throughout the entire procedure. I personally reviewed the image(s) / study and interpretation. I agree with the findings as stated. Performed and dictated at [facility]. MACRO: None. Signed by: Gaby Perez 06/05/2024 9:02 PM Dictation workstation: [id number] [facility] Work Phone: Radiology Study observation (narrative) [facility] Work Phone: US guidance for percutaneous biopsy of Lymph nodeOrdered By: Gaby Perez on 06-05-2024 [facility] Work Phone: NM TRANSFER OF OUTSIDE FILMS on 05-15-2024 NM TRANSFER OF OUTSIDE FILMS Outside images for comparison or treatment purposes, not interpreted by Radiologists. Normal [facility] Study Interpretation of outs romina studyon 05-15-2024 Outside images for comparison or treatment purposes, not interpreted by Radiologists. IMAGING Blood type and Indirect anti body screen panel (Bld)on 05-11-2024 ABO group Nom (Bld) [facility] Blood group antibody screen Ql Negative [facility] D Ag Ql (Bld) Positive [facility] ABO group Nom (Bld) A Normal [facility] Comment on above: Order Comment: Patie nt admitted for surgery associated with significant blood loss OR per blood bank request. Performed By: #### 3 4532-2 #### TING Knox ([id number]) [facility] ([facility]) [id number] [place] [id number] Blood group antibody screen Ql Negative Normal [facility] Comment on above: Order Comment: Patie nt admitted for surgery associated with significant blood loss OR per blood bank request. Performed By: #### 3 4532-2 #### TING Knox ([id number]) [facility] ([facility]) [id number] [place] [phone] D Ag Ql (Bld) Positive Normal [facility] Comment on above: Order Comment: Patie nt admitted for surgery associated with significant blood loss OR per blood bank request. Performed By: #### 3 4532-2 #### TING Knox ([id number]) [facility] ([facility]) [id number] [place] [phone] Glucose Test strip manual (B ld) [Mass/Vol]on 05-11-2024 Glucose [Mass/Vol] 128 mg/dL High 74 - 99 mg/dL [facility] Interpretation and review of laboratory results Abnormal [facility] Glucose [Mass/Vol] 128 mg/dL High 74-99 [facility] Comment on above: Performed By: #### 2 341-6 #### TING Knox ([id number]) [facility] ([facility]) [id number] [place] [address] Glucose [Mass/Vol] 120 mg/dL High 74 - 99 mg/dL [facility] Comment on above: RN NOTIFIED Interpretation and review of laboratory results Abnormal [facility] Glucose [Mass/Vol] 120 mg/dL High 74-99 [facility] Comment on above: Result Comment: BORIS DIAMOND Performed By: #### 2 341-6 #### TING Knox ([id number]) [facility] ([facility]) [address] [place] [address] Surgical pathology studyon 1 07-12-2023 Surgical pathology study Pathology report.total SEE COMMENT Surgical Pathology Case: [id number] Authorizing Provider: Mary Ly MD Collected: 05/11/2024 0802 Ordering Location: [facility] Received: 05/11/2024 0805 [facility] OR Pathologist: Asuncion Quintanilla MD PhD Intraop: Carmel Patel MD Specimens: A) - TONGUE DORSUM BIOPSY, RIGHT BASE OF TONGUE B) - TONGUE DORSUM BIOPSY, RIGHT BASE OF TONGUE #2 C) - TONGUE DORSUM BIOPSY, RIGH BASE OF TONGUE Path report.final diagnosis SEE COMMENT A. Tongue, right base, biopsy: -- Nonkeratinizing squamous cell carcinoma, p16 immunoreactive. B. Tongue, right base, biopsy #2: -- Nonkeratinizing squamous cell carcinoma, p16 immunoreactive. C. Tongue, right base, biopsy: -- Nonkeratinizing squamous cell carcinoma, p16 immunoreactive. Note: P16 by immunohistochemistry: Positive Reference Range: Negative: <50% strong nuclear and cytoplasmic invasive tumor cell staining Equivocal: 50-70% strong nuclear and cytoplasmic invasive tumor cell staining Positive: >70% strong nuclear and cytoplasmic invasive tumor cell staining Laboratory comment By the signature on this report, the individual or group listed as making the Final Interpretation/Diagnosis certifies that they have reviewed this case. RESIDENT REVIEW The microscopic findings were reviewed in conjunction with pathology resident, Reyna Boyd MD. 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 Received fresh for intraoperative consultation, labeled with the patient's name and hospital number and RIGHT BASE OF TONGUE , are multiple fragments of red-wilcox soft tissue measuring 0.6 x 0.5 x 0.2 cm in aggregation. The specimen is submitted in toto in 1 cassette for frozen analysis. SXG/PENG B. Received fresh for intraoperative consultation, labeled with the patient's name and hospital number and RIGHT BASE OF TONGUE #2 normal , are multiple fragments of red-wilcox soft tissue measuring 1.0 x 0.9 x 0.3 cm in aggregation. The specimen is submitted in toto in 1 cassette for frozen analysis. SXG/PENG C: Received in formalin, labeled with the patient's name and hospital number and RIGHT BASE OF TONGUE , are multiple fragments of red-wilcox, soft tissue aggregating to 2.4 x 0.4 x 0.3 cm. The specimen is submitted in toto in one cassette. RIGO COATES INTRAOPERATIVE CONSULTATION SEE COMMENT A. Received Date and Time: 05/11/2024 at 8:02 am - Called Date and Time: 05/11/2024 at 8:21 am Reported to: Dr. Mary Ly Intraoperative Diagnosis: FSA1: At least high-grade squamous dysplasia/carcinoma in situ. Intraoperative Consult Pathologist(s): Carmel Patel MD B. Received Date and Time: 05/11/2024 at 8:22 am - Called Date and Time: 05/11/2024 at 8:45 am Reported to: Dr. Mary Ly Intraoperative Diagnosis: FSB1: At least high-grade squamous dysplasia/carcinoma in situ with areas suspicious for invasion. Intraoperative Consult Pathologist(s): Carmel Patel MD business systems consultant: Dr. Alessandro Arzate. LAB AP ASR DISCLAIMER One or more of the reagents used to perform assays on this specimen MAY have contained components considered to be analyte specific reagents (ASR's). ASR's have not been cleared or approved by the U.S. Food and Drug Administration. These assays were developed and their performance characteristics determined by the Department of Pathology at [facility]. The FDA does not require this test to go through premarket FDA review. This test is used for clinical purposes. It should not be regarded as investigational or for research. This laboratory is certified under the Clinical Laboratory Improvement Amendments (CLIA) as qualified to perform high complexity clinical laboratory testing. The assays were performed with appropriate positive and negative controls which stained appropriately. 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 Office Visiton 04-25-2024 Follow-up visit [id number] Y[address] P 1940 M Date Provider Department Center 04/25/2024 STACEY ERNANDEZ [facility] Family History Problem Relation Age of Onset Coronary artery disease Mother Kidney disease Mother Heart failure Mother Family Status - Relation Status Age at Mother Level of Service:06428 MS OFFICE/OUTPATIENT NEW MODERATE MDM 45 MINUTES Normal [facility] Ambulatory Visit Summaryon 1 06-18-2023 Ambulatory Visit Summary Ambulatory Visit Summary JEREMIE BENNETT :1940 Visit Date:04/17/2024 Ambulatory Visit Instructions Your Diagnosis Type 2 diabetes mellitus with hypercholesterolemia BMI 30.0-30.9,adult Exogenous obesity Former smoker Chronic GERD 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 Hypercholesterolemia Primary hypertension Swollen lymph nodes Malignant neoplasm of head, face and neck Your Care Team Attending Physician - Demetrius Cooper MD Primary Care Physician - Demetrius Cooper MD This Is Your Medications List [...] Tab) fluticasone nasal (fluticasone Nasal 0.05 mg/inh Malcom) furosemide (furosemide 20 mg Tab) irbesartan (irbesartan [...] Cap) Procedures Performed Ablation (08/17/2023), Colonoscopy (06/14/2023), Esophagogastroduodenoscop y (04/15/2023), Esophagogastroduodenoscop y (05/20/2020), Angioplasty, Cardiac pacemaker procedure, Cataract, Cholecystectomy, Colonoscopy, Hernia repair, Prostate excision, Tonsillectomy, Vasectomy. Discharge Vitals Temperature (Oral) 36.3 ???C Heart Rate (Peripheral) 66 Respiratory Rate 16 Blood Pressure 118/72 Height 160 cm Height 63 in Weight 78.7 kg Weight 173.504 lb BMI 30.74 What to do next Scheduled Follow-Up Appointments Wednesday 2:30 PM EDT With: Where: [place] [id number]- Wednesday 3:30 PM EDT With: Allison CASON, Demetrius Rosa Where: [address] [address]- Medications What How Much When Instructions Unchanged [...] fluticasone nasal (fluticasone Nasal 0.05 mg/ inh Malcom) See instructions USE 1 SPRAY IN BOTH [...] By Mouth Every day Unchanged Misc Prescription ([facility] Prescription) See instructions one touch ultra test strips test sugars once a day Unchanged Misc Prescription ([facility] Prescription) See instructions one [...] currently receivin (more content not included)... Normal [facility] CBC w/ Auto Diffon 4 Basophils/100 WBC (Bld) 0.8 % Normal 0.0-2.0 [facility] Comment on above: Performed By: #### 2 046716 #### [facility] [address] [place] [address] Basophils/Leukocytes Auto (Bld) [Pure # fraction] 0.1 E9/L Normal 0.0-0.2 [facility] Comment on above: Performed By: #### 2 285940 #### [facility] [address] [place] [address] Eosinophils (Bld) [#/Vol] 0.4 E9/L Normal 0.0-0.5 [facility] Comment on above: Performed By: #### 2 870441 #### [facility] [address] [place] [address] Eosinophils/100 WBC (Bld) 4.6 % Normal 0.0-8.0 [facility] Comment on above: Performed By: #### 2 908558 #### [facility] [address] [place] [address] Erythrocyte distribution width (RBC) [Ratio] 14.0 % Normal 10.9-14.2 [facility] Comment on above: Performed By: #### 2 739653 #### [facility] [address] [place] [address] Hematocrit (Bld) [Volume fraction] 43.7 % Normal 37.7-49.0 [facility] Comment on above: Performed By: #### 2 183086 #### [facility] [address] [place] [address] Hemoglobin (Bld) [Mass/Vol] 14.5 g/dL Normal 13.5-17.5 [facility] Comment on above: Performed By: #### 2 987177 #### [facility] [address] [place] [address] Lymphocytes (Bld) [#/Vol] 2.0 E9/L Normal 1.0-4.0 [facility] Comment on above: Performed By: #### 2 648993 #### [facility] [address] [place] [address] Lymphocytes/100 WBC (Bld) 22.4 % Normal 14.0-50.0 [facility] Comment on above: Performed By: #### 2 729232 #### [facility] [address] [place] [address] MCH (RBC) [Entitic mass] 31.2 pg Normal 27.0-34.0 [facility] Comment on above: Performed By: #### 2 114571 #### [facility] [address] [place] [address] MCHC (RBC) [Mass/Vol] 33.2 g/dL Normal 31.4-36.0 [facility] Comment on above: Performed By: #### 2 764352 #### [facility] [address] [place] [address] MCV (RBC) [Entitic vol] 94.2 fL Normal 80.0-100.0 [facility] Comment on above: Performed By: #### 2 074191 #### [facility] [address] [place] [address] Monocytes (Bld) [#/Vol] 0.7 E9/L Normal 0.2-1.0 [facility] Comment on above: Performed By: #### 2 250409 #### [facility] [address] [place] [address] Neutrophils (Bld) [#/Vol] 5.7 E9/L Normal 2.0-7.5 [facility] Comment on above: Performed By: #### 2 749643 #### [facility] [address] [place] [address] Neutrophils/100 WBC (Bld) 64.7 % Normal 36.0-75.0 [facility] Comment on above: Performed By: #### 2 613199 #### [facility] [address] [place] [address] Platelet mean volume (Bld) [Entitic vol] 9.2 fL Normal 6.4-10.8 [facility] Comment on above: Performed By: #### 2 806939 #### [facility] [address] [place] [address] Platelets (Bld) [#/Vol] 243.0 E9/L Normal 150.0-500. 0 [facility] Comment on above: Performed By: #### 2 321063 #### [facility] [address] [place] [address] RBC (Bld) [#/Vol] 4.6 E12/L Normal 4.3-5.9 [facility] Comment on above: Performed By: #### 2 744794 #### [facility] [address] [place] [address] WBC corrected for nucl RBC Auto (Bld) [#/Vol] 8.9 E9/L Normal 4.0-11.0 [facility] Comment on above: Performed By: #### 2 541724 #### [facility] [address] [place] [address] CHEMISTRYOrdered By: SYSTEM SYSTEM on 04-17-2024 Albumin [...] Bilirubin [Mass/Vol] 0.6 mg/dL Normal 0.0 - 1 .1 mg/dL [facility] Calcium [Mass/Vol] 9.7 mg/dL Normal 8.9 - 11. 1 mg/dL [facility] Chloride [Moles/Vol] 108 mmol/L Normal 101 - 1 11 mmol/L [facility] Chem CO2 [Moles/Vol] 27 mmol/L [...] (Bld) [Mass fraction] 6.5 % High <=5.9% [facility] ChemAutoSS CMPon 04-17-2024 Albumin [Mass/Vol] 4.3 g/dL Normal 3.3-5.0 [facility] Comment on above: Performed By: #### 2 646065 #### [facility] [address] [place] [address] Albumin/Globulin (S) [Mass conc ratio] 1.7 Normal 1.1-2.2 [facility] Comment on above: Performed By: #### 2 348035 #### [facility] [address] [place] [address] ALP [Catalytic activity/Vol] 82 Int._Unit/L Normal 21-98 [facility] Comment on above: Performed By: #### 2 677689 #### [facility] [address] [place] [address] ALT No additional P-5'-P [Catalytic activity/Vol] 17 Int._Unit/L Normal 6-46 [facility] Comment on above: Performed By: #### 2 182448 #### [facility] [address] [place] [address] Anion gap [Moles/Vol] 10 mmol/L Normal 6-16 [facility] Comment on above: Performed By: #### 2 750619 #### [facility] [address] [place] [address] AST [Catalytic activity/Vol] 18 Int._Unit/L Normal 5-43 [facility] Comment on above: Performed By: #### 2 975454 #### [facility] [address] [place] [address] Bilirubin [Mass/Vol] 0.6 mg/dL Normal 0.0-1.1 [facility] Comment on above: Performed By: #### 2 385441 #### [facility] [address] [place] [address] Calcium [Mass/Vol] 9.7 mg/dL Normal 8.9-11.1 [facility] Comment on above: Performed By: #### 2 561548 #### [facility] [address] [place] [address] Chloride [Moles/Vol] 108 mmol/L Normal 101-111 [facility] Comment on above: Performed By: #### 2 479878 #### [facility] [address] [place] [address] CO2 [Moles/Vol] 27 mmol/L Normal 21-31 [facility] Comment on above: Performed By: #### 2 801974 #### [facility] [address] [place] [address] Creatinine [Mass/Vol] 1.0 mg/dL Normal 0.5-1.3 [facility] Comment on above: Performed By: #### 2 212637 #### [facility] [address] [place] [address] Globulin (S) [Mass/Vol] 2.5 g/dL Normal 1.4-4.0 [facility] Comment on above: Performed By: #### 2 181291 #### [facility] [address] [place] [address] Glucose [Mass/Vol] 145 mg/dL Normal 55-199 [facility] Comment on above: Performed By: #### 2 983355 #### [facility] [address] [place] [address] Potassium [Moles/Vol] 4.2 mmol/L Normal 3.5-5.3 [facility] Comment on above: Performed By: #### 2 158440 #### [facility] [address] [place] [address] Protein [Mass/Vol] 6.8 g/dL Normal 6.0-7.8 [facility] Comment on above: Performed By: #### 2 176535 #### [facility] [address] [place] [address] Sodium [Moles/Vol] 141 mmol/L Normal 135-145 [facility] Comment on above: Performed By: #### 2 165487 #### [facility] [address] [place] [address] Urea nitrogen [Mass/Vol] 22 mg/dL High 5- [facility] Comment on above: Performed By: #### 2 824962 #### [facility] [address] [place] [address] Urea nitrogen/Creatinine [Mass ratio] 22 No Units High 10-20 [facility] Comment on above: Performed By: #### 2 569748 #### [facility] [address] [place] [address] Family Medicine Office/Clini c Noteon 04-17-2024 Family [...] biopsy with a referral to Dr. Marlene Ly in [place] for further evaluation. The patient has a [...] or previously received 4274F Lab Specimen Collect 66589 Microalbumin Level Urine Most recent diastolic blood [...] or previously received 4274F Lab Specimen Collect 18732 Microalbumin Level Urine Most recent diastolic blood [...] or previously received 4274F Lab Specimen Collect 68460 Microalbumin Level Urine Most recent diastolic blood pressure <80 mm Hg 3078F Patient screen for fall risk: no falls in last year or 1 fall with no injury in last year 1101F Systolic BP <130 mm Hg (Most Recent) 3074F 4. Former smoker (Z87.891: Personal history of nicotine dependence) Please continue not to smoke. Ordered: influe (more content not included)... Normal [facility] Comment on above: Result Comment: Elec tronically Signed By: Allison CASON, Demetrius Rosa\.br\Date and Time Signed: 04/17/24 12:20 EST HEMATOLOGYOrdered By: SYSTEM SYSTEM on 04-17-2024 Basophils/100 WBC (Bld) 0.8 % Normal 0.0 - 2.0 % Remisol Heme Basophils/Leukocytes Auto (Bld) [Pure # fraction] 0.1 E9/L [...] Normal 4.0 - 11.0 E9/L Remisol Heme XwlO0bkg 04-17-2024 HbA1c (Bld) [Mass fraction] 6.5 % High <=5.9 [facility] Comment on above: Performed By: #### 7 [id number] #### [facility] [address] [place] [address] U Microalbon 04-17-2024 Albumin DL <= 20 mg/L (U) [Mass/Vol] 0.7 mg/dL Normal 0.0-1.9 [facility] Comment on above: Performed By: #### 1 7276032 #### [facility] [address] [place] [address] eGFRon 04-17-2024 eGFR 74 mL/min/1.73 m2 Normal >=59 [facility] Comment on above: Performed By: #### 1 9978456 #### [facility] [address] [place] [address] Basic metabolic 2000 panelon 04-11-2024 Anion gap [Moles/Vol] 15 mmol/L Normal 10-20 [facility] Comment on above: Performed By: #### 2 4321-2 #### TING VIEIRA L (67779) [facility] ([facility]) [address] [place] [address] Calcium [Mass/Vol] 9.9 mg/dL Normal 8.6-10.6 [facility] Comment on above: Performed By: #### 2 4321-2 #### TING VIEIRA L (40460) [facility] ([facility]) [address] [place] [address] Chloride [Moles/Vol] 107 mmol/L Normal 98-107 [facility] Comment on above: Performed By: #### 2 4321-2 #### TING VICENTEMOJOHNNY L (79238) [facility] ([facility]) [address] [place] [address] CO2 [Moles/Vol] 25 mmol/L Normal 21-32 [facility] Comment on above: Performed By: #### 2 4321-2 #### TING VICENTEMOTZER L (51485) [facility] ([facility]) [address] [place] [address] Creatinine [Mass/Vol] 0.96 mg/dL Normal 0.50-1.30 [facility] Comment on above: Performed By: #### 2 4321-2 #### TING PARKSTZER L (58824) [facility] ([facility]) [address] [place] [address] Glomerular filtration rate/1.73 sq M.predicted 78 mL/min/1.73m*2 Normal >60 [facility] Comment on above: Result Comment: Calc ulations of estimated GFR are performed using the 2020 CKD-EPI Study Refit equation without the race variable for the IDMS-Traceable creatinine methods. https://jasn.asnjournals.org/content/early//ASN.21899 77780 Performed By: #### 2 4321-2 #### TING Knox (67825) [facility] ([facility]) [address] [place] [address] Glucose [Mass/Vol] 109 mg/dL High 74-99 [facility] Comment on above: Performed By: #### 2 4321-2 #### TING Knox (52165) [facility] ([facility]) [address] [place] [address] Potassium [Moles/Vol] 4.5 mmol/L Normal 3.5-5.3 [facility] Comment on above: Performed By: #### 2 4321-2 #### TING Knox (62702) [facility] ([facility]) [address] [place] [address] Sodium [Moles/Vol] 142 mmol/L Normal 136-145 [facility] Comment on above: Performed By: #### 2 4321-2 #### TING Knox (95299) [facility] ([facility]) [address] [place] [address] Urea nitrogen [Mass/Vol] 18 mg/dL Normal 6-23 [facility] Comment on above: Performed By: #### 2 4321-2 #### TING Knox (23948) [facility] ([facility]) [address] [place] [address] CBC panel Auto (Bld)on 04-11 Erythrocyte distribution width (RBC) [Ratio] 13.3 % Normal 11.5-14.5 [facility] Comment on above: Performed By: #### 5 8410-2 #### TING Knox (61426) [facility] ([facility]) [address] [place] [address] Hematocrit (Bld) [Volume fraction] 45.5 % Normal 41.0-52.0 [facility] Comment on above: Performed By: #### 5 8410-2 #### TING Knox (29654) [facility] ([facility]) [address] [place] [address] Hemoglobin (Bld) [Mass/Vol] 14.5 g/dL Normal 13.5-17.5 [facility] Comment on above: Performed By: #### 5 8410-2 #### TING Knox (10170) [facility] ([facility]) [address] [place] [address] MCH (RBC) [Entitic mass] 30.1 pg Normal 26.0-34.0 [facility] Comment on above: Performed By: #### 5 8410-2 #### TING Knox (53732) [facility] ([facility]) [address] [place] [address] MCHC (RBC) [Mass/Vol] 31.9 g/dL Low 32.0-36.0 [facility] Comment on above: Performed By: #### 5 8410-2 #### TING Knox (56616) [facility] ([facility]) [address] [place] [address] MCV (RBC) [Entitic vol] 94 fL Normal 80-100 [facility] Comment on above: Performed By: #### 5 8410-2 #### TING Knox (84300) [facility] ([facility]) [address] [place] [address] Nucleated RBC/100 WBC (Bld) [Ratio] 0.0 /100 WBCs Normal 0.0-0.0 [facility] Comment on above: Performed By: #### 5 8410-2 #### TING Knox (05582) [facility] ([facility]) [address] [place] [address] Platelets (Bld) [#/Vol] 254 x10*3/uL Normal 150-450 [facility] Comment on above: Performed By: #### 5 8410-2 #### TING Knox (81695) [facility] ([facility]) [address] [place] [address] RBC (Bld) [#/Vol] 4.82 x10*6/uL Normal 4.50-5.90 [facility] Comment on above: Performed By: #### 5 8410-2 #### TING Knox (37422) [facility] ([facility]) [address] [place] [address] WBC (Bld) [#/Vol] 8.5 x10*3/uL Normal 4.4-11.3 [facility] Comment on above: Performed By: #### 5 8410-2 #### TING VIEIRA L (75113) [facility] ([facility]) [address] [place] [address] Surgical pathology studyon 1 06-07-2023 Surgical pathology study Pathology report.total SEE COMMENT Surgical Pathology Case: [id number] Authorizing Provider: Mary Ly MD Collected: 04/07/2024 1137 Ordering Location: [facility] Received: 04/07/2024 1145 Pathologist: Alessandro [...] PAS is negative for heart fungal organisms. business systems consultant: Dr. Jose Leary. Laboratory comment By [...] is submitted in toto in one cassette. [facility] GLUCOSE, BLOOD (POC)on 03-27 Glucose [Mass/Vol] 113 mg/dL Abnormal 74 - 99 mg/dL [facility] Comment on above: Location:[facility], [address] [place] [address] , [place], [place], [address] The Accu-Chek Inform II glucose meter has [...] Interpretation and review of laboratory results Abnormal [facility] NM PET/CT SKULL-THIGH INITon 03-27-2024 NM PET/CT [...] designed to produce diagnostic CT scan quality. Physiologic/non-pathologi c uptake in some body regions could confound or obscure some pathology. * CT Dose-Length Product (DLP): 307 mGy*cm * CT Dose Reduction Employed: Yes * Blood glucose: 113 mg/dL * Injection site: Left Forearm-Antecubital * Injected activity: 10.1 mCi * Uptake Time: 61 minutes * Radiopharmaceutical: Y06-Vxktunjsgiwjzwfhbb (FDG) COMPARISON: No previous FDG PET/CT available [...] of you (more content not included)... Normal [facility] Ambulatory Visit Summaryon 1 05-23-2023 Ambulatory Visit Summary Ambulatory Visit Summary JEREMIE BENNETT :1940 Visit Date:03/23/2024 Ambulatory Visit Instructions Your Diagnosis Pancreatic cyst RUQ pain Bloating Chronic GERD History of colon polyps Your Care Team Attending Physician - Beatriz CASON, Inez Funes Primary Care Physician - Allison CASON, Demetrius Rosa This Is Your Medications List Contact prescribing [...] Tab) fluticasone nasal (fluticasone Nasal 0.05 mg/inh Malcom) furosemide (furosemide 20 mg Tab) irbesartan (irbesartan [...] Cap) Procedures Performed Ablation (08/17/2023), Colonoscopy (06/14/2023), Esophagogastroduodenoscop y (04/15/2023), Esophagogastroduodenoscop y (05/20/2020), Angioplasty, Cardiac pacemaker procedure, Cataract, Cholecystectomy, Colonoscopy, Hernia repair, Prostate excision, Tonsillectomy, Vasectomy. Discharge Vitals Heart Rate (Peripheral) 71 Respiratory Rate 16 Blood Pressure 117/74 Height 160 cm Height 63 in Weight 77 kg Weight 169.4 lb BMI 30.08 What to do next Scheduled Follow-Up Appointments Wednesday 10:00 AM EST With: Allison CASON, Demetrius Rosa Where: [address] [id number]- Wednesday 2:30 PM EDT With: Where: [address] [address]- Medications What How Much When Instructions Unchanged [...] fluticasone nasal (fluticasone Nasal 0.05 mg/ inh Malcom) See instructions USE 1 SPRAY IN BOTH [...] (Misc Medication (more content not included)... Normal [facility] Gastroenterology Office/Clin ic Noteon 03-23-2024 Gastroenterology [...] sidebranch IPMN- 04/[address] Aguilar @ [facility] Repeat MRCP 02/2024 2. 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 Normal [facility] Comment on above: Result Comment: Elec tronically Signed By: Beatriz CASON, Inez Funes\.marco a\Date and Time Signed: 03/23/24 14:49 EST Obdulio 02-29-2024 L Specimen: [id number] Received: 02/29/24 Status: LISA Kirby Num: [id number] Spec Type: Surgical Subm Dr: LUC HAM [...] Account Attending Physician Jeremie Bennett 83/M LABELL [id number] LUC HAM MD SPEC NUM: [id number] RECD: 02/29/24 STATUS: LISA KIRBY NUM: [id number] DONTRELL: 02/29/24 DR: LUC HAM MD ENTERED: 02/29/[address] [facility] DR: Myra Templeton SPEC TYPE: Surgical DEPT: MANNY MONTEZ ENTERED BY: [id number] RECV BY: [id number] ORDERED: S 100, Mucicarmine, HE/6, Gross/Micro L4/2, CK5 6, CK20, CK 7, NAPSIN A, CINtec p16, TTF1, NKX3.1, MOC31, GATA3, p40, DIFF QWIK ORDERED: S 100, Mucicarmine, HE/6, Gross/Micro L4/2, CK5 6, CK20, CK 7, NAPSIN A, CINtec p16, TTF1, USS/4, NKX3.1, MOC31, GATA3, p40, DIFF QWIK Supplemental Report Addendum 1 Entered: 03/04/24 Supplemental for findings of flow cytometry analysis (Part B) from [facility] -The flow cytometry test is canceled, due to insufficient cellularity / insufficient lymphocytes Addendum Signed (signature on file) Chin-Anup Sanchez MD 03/04/24 1035 Pathological Diagnosis A, right cervical lymph node, core biopsy: -Positive for metastatic carcinoma, 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 Note: Specimen: [id number] Received: 02/29/24 Status: LISA Kirby Num: [id number] Spec Type: Surgical Subm Dr: LUC HAM MD Tissues: A Lymph Node - Biopsy (Needle or Incisional) (RT CERVICAL LYMPH NODE) B Lymph Node - Biopsy (Needle or Incisional) (RT CERVICAL LYMPH NODE-SALIN) Procedures: S 100, Mucicarmine, HE/6, Gross/Micro L4/2, CK5 6, CK20, CK 7, NAPSIN A, CINtec p16, TTF1, NKX3.1, MOC31, GATA3, p40, DIFF QWIK Patient: Jeremie Bennett [id number] (Continued) Specimen: [id number] Received: 02/29/24 (Continued) Pathological Diagnosis (Continued) Signed (signature on file) Tae Sanchez MD 03/04/24 1033 Specimen: [id number] Received: 02/29/24 Status: LISA Kirby Num: [id number] Spec Type: Surgical Subm Dr: LUC HAM MD Tissues: A Lymph Node - Biopsy (Needle or Incisional) (RT CERVICAL LYMPH NODE) B Lymph Node - Biopsy (Needle or Incisional) (RT CERVICAL LYMPH NODE-SALIN) Procedures: S 100, Mucicarmine, HE/6, Gross/Micro L4/2, CK5 6, CK20, CK 7, NAPSIN A, CINtec p16, TTF1, NKX3.1, MOC31, GATA3, p40, DIFF QWIK Patient: Jeremie Bennett [id number] (Continued) Specimen: [id number] Received: 02/29/24-1519 (Continued) Pathological Diagnosis (Continued) -The tumor cells [...] content not included)... Normal [facility] CT SOFT TISSUE NECK W [...] and mild to moderate right carotid bulb calcification/atheroscler otic plaque. There appears to be approximately 50% [...] Comment: CT S/ T Neck W at [facility]. Please call patient to schedule. MRI [...] effusions. Bibasilar opacity versus atelectasis. Ordering Provider: Sarmini, Wiley FINAL REPORT Dictated: 11/12/2023 11:17 am Salomón Ballard MD Signed (Electronic Signature): 11/12/2023 11:17 am Signed by: Salomón Ballard MD Transcribed by: SHAUNNA Technologist: ROZ Report last revised on 02/03/2024 17:33 EDT by Salomón Ballard MD [facility] 02-02-2024 [facility] Telephone ([facility]) ----- JEREMIE BENNETT ([id number]) 1940 M Date Time Provider Department 02/02/24 VAISHALI PRINGLE [facility] During your visit today, we recorded [...] and it was completed in 12/2023 at [facility]. Our office will request results for Dr. Pringle's review. Follow up will be determined upon Dr. Pringle's review of results. Carlitos Beckman 02/04/2024 9:19 AM Signed Surveillance imaging completed at OSH for IPMN surveillance. Carlitos Beckman 02/07/2024 9:31 AM Signed IPMN surveillance. Review OSH images and advise please [facility] MRI Cholanglogram Pancreatography 11/09/2023 Allergies As of Date: 02/02/2024 Noted Allergy Reaction ADHESIVE TAPE-SILICONES 01/19/2019 2 - Rash NIACIN 01/19/2019 9 - Itching 16 - Unknown Date Reviewed: 04/01/2023 Reviewed by: Debby Holland MA - Fully Assessed Reason for Visit: MRI Appointment [1569] [employer] - Other [3602] Primary Visit Diagnosis:IPMN (intraductal papillary mucinous neoplasm) [D49.0] Order(s):CONSULT FOR RAD 2ND READ [[id number]] Order #: [id number]: 1 Prescriptions as of 02/18/2024 - iv contrast (will be provided with radiology test) MRI PANC/TRISH Inject, intravenously, once for 1 dose. No [...] fluticasone (FLONASE) 50 mcg/actuation nasal spray 1 Geneva. - omeprazole (PRILOSEC) 40 mg capsule Take [...] Encounter Status:Closed by CARLITOS BECKMAN on 02/18/24 [facility] Ambulatory Visit Summaryon 0 02-01-2024 Ambulatory Visit Summary Ambulatory Visit Summary JEREMIE BENNETT :1940 Visit Date:02/01/2024 Ambulatory Visit Instructions Your Diagnosis Cervical lymphadenopathy BMI 32.0-32.9,adult Class 1 obesity due to excess calories in adult Former smoker Immunization counseling Your Care Team Attending Physician - Demetrius Cooper MD Primary Care Physician - Demetrius Cooper MD This Is Your Medications List [...] Tab) fluticasone nasal (fluticasone Nasal 0.05 mg/inh Malcom) furosemide (furosemide 20 mg Tab) irbesartan (irbesartan [...] Cap) Procedures Performed Ablation (08/17/2023), Colonoscopy (06/14/2023), Esophagogastroduodenoscop y (04/15/2023), Esophagogastroduodenoscop y (05/20/2020), Angioplasty, Cardiac pacemaker procedure, Cataract, Cholecystectomy, Colonoscopy, Hernia repair, Prostate excision, Tonsillectomy, Vasectomy. Discharge Vitals Temperature (Oral) 36.7 ?C Heart Rate (Peripheral) 68 Respiratory Rate 16 Blood Pressure 122/80 Height 160 cm Height 63 in Weight 79.0 kg Weight 173.8 lb BMI 30.86 What to do next Scheduled Follow-Up Appointments 2023 2:45 PM EST With: Beatriz CASON, Inez Funes Where: [facility] [address] [place] [address] [place] [address]- Wednesday 10:00 AM EST With: Allison CASON, Demetrius Rosa Where: [address] [address]- Wednesday 2:30 PM EDT With: Where: [address] [address]- Medications What How Much When Why Instructions [...] fluticasone nasal (fluticasone Nasal 0.05 mg/ inh Malcom) See instructions USE 1 SPRAY IN BOTH [...] See instructions (more content not included)... Normal [facility] Family Medicine Office/Clini c Noteon 02-01-2024 [...] BID, # 20 cap(s), Refills(s) 0, Pharmacy: [facility] #[id number], 160, cm, 01/10/24 9:43:00 EDT, Height/Length Dosing, 77.8, kg, 01/10/24 9:43:00 EDT, Weight Dosing Follow-up No qualifying data available Problem List/Past Medical History Ongoing BMI 29.0-29.9,adult Cervical lymphadenopathy Cervical spondylosis Chronic GERD 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 Diabetic autonomic neuropathy [...] habits Procedure/Surgical History Ablation (08/17/2023), Colonoscopy (06/14/2023), Esophagogastroduodenoscop y (04/15/2023), Esophagogastroduodenoscop y (05/20/2020), Angioplasty, Cardiac pacemaker procedure, Cataract, Cholecystectomy, [...] PRN, 1 refills fluticasone Nasal 0.05 mg/inh Malcom, See Instructions furosemide 20 mg Tab, 20 [...] change: No. Household alcohol concerns: No., 11/08/2023 [facility] (more content not included)... Normal [facility] Comment on above: Result Comment: Elec tronically Signed By: Demetrius Cooper MD\.br\Date and Time Signed: 02/01/24 09:16 EDT Ambulatory Visit Summaryon 0 01-10-2024 Ambulatory Visit Summary Ambulatory Visit Summary JEREMIE BENNETT :1940 Visit Date:01/10/2024 Ambulatory Visit Instructions Your Diagnosis BMI 30.0-30.9,adult Class 1 obesity due to excess calories in adult Former smoker Your Care Team Attending Physician - Demetrius Cooper MD Primary Care Physician - Demetrius Cooper MD This Is Your Medications List [...] mg Tab) fluticasone nasal (Flonase 0.05 mg/inh Geneva) furosemide (furosemide 20 mg Tab) irbesartan (irbesartan [...] Cap) Procedures Performed Ablation (08/17/2023), Colonoscopy (06/14/2023), Esophagogastroduodenoscop y (04/15/2023), Esophagogastroduodenoscop y (05/20/2020), Angioplasty, Cardiac pacemaker procedure, Cataract, Cholecystectomy, Colonoscopy, Hernia repair, Prostate excision, Tonsillectomy, Vasectomy. Discharge Vitals Temperature (Temporal Artery) 36.4 ?C Heart Rate (Peripheral) 72 Respiratory Rate 20 Blood Pressure 124/80 Height 160 cm Height 63 in Weight 77.8 kg Weight 171.16 lb BMI 30.39 What to do next Scheduled Follow-Up Appointments Wednesday 8:45 AM EDT With: Demetrius Cooper MD Where: [address] [id number]- 2023 2:45 PM EST With: Beatriz CASON, Inez Funes Where: [address] [address]- Wednesday 10:00 AM EST With: Demetrius Cooper MD Where: [address] [id number]- Wednesday 2:30 PM EDT With: Where: [address] [address]- Medications What How Much When Why Instructions [...] Unchanged fluticasone nasal (Flonase 0.05 mg/ inh Geneva) 1 Sprays Nasal Inhalation 2 times a [...] By Mouth Every day Unchanged Misc Prescription (Misc DME Prescription) [...] zonisamide (z (more content not included)... Normal [facility] Family Medicine Office/Clini c Noteon 01-10-2024 [...] BID, # 20 cap(s), Refills(s) 0, Pharmacy: [facility] #[id number], 160, cm, 01/10/24 9:43:00 EDT, Height/Length Dosing, 77.8, kg, 01/10/24 9:43:00 EDT, Weight Dosing Follow-up No qualifying data available Problem List/Past Medical History Ongoing BMI 29.0-29.9,adult Cervical lymphadenopathy Cervical spondylosis Chronic GERD 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 Diabetic autonomic neuropathy [...] habits Procedure/Surgical History Ablation (08/17/2023), Colonoscopy (06/14/2023), Esophagogastroduodenoscop y (04/15/2023), Esophagogastroduodenoscop y (05/20/2020), Angioplasty, Cardiac pacemaker procedure, Cataract, Cholecystectomy, [...] q4hr, PRN, 1 refills Flonase 0.05 mg/inh Geneva, 1 spray(s), Nasal, BID furosemide 20 mg Tab, 20 mg= 1 tab(s), Oral, Daily irbesartan 300 mg Tab, 300 mg= 1 tab(s), Oral, Daily isosorbide mononitrate, 30 mg, Oral, qAM latanoprost Opth 0.005% Janee loperamide 2 mg (more content not included)... Normal [facility] Comment on above: Result Comment: Elec tronically Signed By: Allison CASON, Demetrius Rosa\.br\Date and Time Signed: 01/10/24 10:38 EDT [...] Airborne, Droplet Precautions for MERS/COVID-19 : N/A Chris Osborne LPNce L - 11/08/2023 16:25 EDT Medicare/Medicaid Summary Chief Complaint : Medicare Wellness Visit Subsequent Shaila Osborne LPN Lisette - 11/08/2023 16:25 EDT Patient Counseled : [...] : Living will, Medical durable power of mergers and acquisitions attorney Patient Wishes to Receive Further Information [...] 13:20:59 EDT Procedure Dt/Tm: 05/20/2020 ; Location: [facility] ; Provider: Oksana Saini MD; Anesthesia Minutes: 0 ; Procedure Name: Esophagogastroduodenoscop y ; Procedure Minutes: 0 ; Comments: 05/20/2020 13:51 TIM Chapman RN, Chanel 2 diminunative ulcers, gastritis, gastric polyp, biopsy ; Last Reviewed Dt/Tm: 11/08/2023 13:20:59 EDT Anesthesia Minutes: 0 ; Procedure Name: Cholecystectomy ; Procedure Minutes: 0 ; Last Reviewed Dt/Tm: 11/08/2023 13:20:59 EDT Anesthesia Minutes: 0 ; Procedure Name: Cataract ; Procedure Minutes: 0 ; Comments: 08/24/2022 8:08 EDT - Tone PARATRANSIT OPERATOR, Marianne L bilateral ; Last Reviewed Dt/Tm: 11/08/2023 13:20:59 EDT Procedure Dt/Tm: 04/15/2023 ; Location: [facility] ; Provider: Gordy Powers MD; Anesthesia Minutes: 0 ; Procedure Name: Esophagogastroduodenoscop y ; Procedure Minutes: 0 ; Last Reviewed Dt/Tm: 11/08/2023 13:20:59 EDT Procedure Dt/Tm: 08/17/2023 ; Anesthesia Minutes: 0 ; Procedure Name: Ablation lower back ; Procedure Minutes: 0 ; Comments: 08/30/2023 9:57 EDT - Tone PARATRANSIT OPERATOR, Marianne L done for pain ; [...] Value: Positive (more content not included)... Normal [facility] Comment on above: Result Comment: Elec tronically Signed By: Allison CASON, Demetrius Rosa\.br\Date and Time Signed: 12/05/23 13:30 EDT\.br\Electronically [...] unspecified Your Care Team Attending Physician - Demetrius Cooper MD Primary Care Physician - Demetrius Cooper MD This Is Your Medications List [...] mg Tab) fluticasone nasal (Flonase 0.05 mg/inh Geneva) furosemide (furosemide 20 mg Tab) irbesartan (irbesartan [...] Cap) [Image Removed: STOP]Stop taking these medications acetaminophen-diphenhydrA MINE (Tylenol PM) Procedures Performed Ablation (08/17/2023), Colonoscopy (06/14/2023), Esophagogastroduodenoscop y (04/15/2023), Esophagogastroduodenoscop y (05/20/2020), Angioplasty, Cardiac pacemaker procedure, Cataract, Cholecystectomy, Colonoscopy, Hernia repair, Prostate excision, Tonsillectomy, Vasectomy. Discharge Vitals Heart Rate (Peripheral) 74 Respiratory Rate 16 Blood Pressure 138/76 Height 160 cm Height 63 in Weight 78.5 kg Weight 172.7 lb BMI 30.66 What to do next Scheduled Follow-Up Appointments 2023 2:45 PM EST With: Beatriz CASON, Inez Funes Where: [facility] Invalid Interpretation Code [address] [place] [address]- \. br\ Wednesday 2:30 PM EDT \.br\ With:\.br\ Where: [facility] Medicine Office/Clini c Noteon 11-29-2023 Family Medicine [...] q4hr for headache, 60 cap(s), Refill(s) 1, [id number], 160, cm, 11/29/23 10:29:00 EDT, Height/Length Dosing, 78.5, kg, 11/29/23 10:29:00 EDT, Weight Dosing - Will see back in 5 months. 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 Diabetic autonomic neuropathy [...] habits Procedure/Surgical History Ablation (08/17/2023), Colonoscopy (06/14/2023), Esophagogastroduodenoscop y (04/15/2023), Esophagogastroduodenoscop y (05/20/2020), Angioplasty, Cardiac pacemaker procedure, Cataract, Cholecystectomy, [...] q4hr, PRN, 1 refills Flonase 0.05 mg/inh Geneva, 1 spray(s), Nasal, BID furosemide 20 mg Tab, 20 mg= 1 tab(s), Oral, Daily irbesartan 300 mg Tab, 300 mg= 1 tab(s), Oral, Daily isosorbide mononitrate, 30 mg, Oral, qAM latanoprost Opth 0.005% Janee loperamide 2 mg Tab, 2 mg= 1 tab(s), Oral, q4hr Metamucil metformin 500 mg ER Tab, 500 mg= 1 tab(s), Oral, Daily [facility] Prescription, See Instructions Misc DME Prescription, [...] use int (more content not included)... Normal [facility] Comment on above: Result Comment: Elec tronically Signed By: Demetrius Cooper MD\.br\Date and Time Signed: 11/29/23 10:51 EDT Pre-Visit Planningon 024 Pre-Visit Planning Pre-Visit Planning From: Demetrius Cooper MD To: Dylon BELLShaila; Sent: 11/07/2023 11:21:23 EDT Subject: FW: Pre-Visit Planning Caller Name: JEREMIE BENNETT; Caller Number: H I am not sure. I will ask Shaila to follow up. From: Bobbi Hall To: Demetrius Cooper MD; Sent: 11/05/2023 10:55:49 EDT Subject: Pre-Visit Planning Due Date/Time: 11/05/2023 10:55:00 EDT Caller Name: JEREMIE BENNETT; Caller Number: H De Dr. Cooper. During a pre-visit planning chart [...] feel free to contact me at extension [phone]. Thank you! 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 He sees Dr. Arellano in [place]. I called to request records but they want a fax request so I will fax that tomorrow. From: Shaila Osborne LPN To: Demetrius Cooper MD; Sent: 11/08/2023 17:09:05 EDT Subject: FW: Pre-Visit Planning Caller Name: JEREMIE BENNETT; Caller Number: H From: Marianne Wayne LPN To: Demetrius Cooper MD; Sent: 11/08/2023 17:53:36 EDT Subject: FW: Pre-Visit Planning Caller Name: JEREMIE BENNETT; Caller Number: H From: Demetrius Cooper MD To: Bobbi Hall; Sent: 11/15/2023 09:17:12 EDT Subject: FW: Pre-Visit Planning Caller Name: JEREMIE BENNETT; Caller Number: H [address] Consultation Noteon 11-10-19 Consultation Note [id number]#1.00TIFF [facility] Consent for Treatmenton 10-16 Consent for Treatment [id number]#1.00TIFF Normal [facility] RAD - MISCon 11-09-2023 RAD - MISC [id number]#1.00TIFF Normal [facility] RAD - MRI Screening Formon 0 11-09-2023 RAD - MRI Screening Form [id number]#1.00TIFF Normal [facility] Screenson 11-09-2023 Screens [id number]#1.00TIFF Normal [facility] XR Chest Single Viewon 11-08 XR [...] mGy = na DAP = na Normal [facility] Ambulatory Visit Summaryon 0 11-08-2023 Ambulatory Visit Summary Ambulatory Visit Summary JEREMIE BENNETT :1940 Visit Date:11/08/2023 Ambulatory Visit Instructions Your Diagnosis Annual visit for general adult medical examination without abnormal findings 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 Thoracic aortic ectasia Primary hypertension Pacemaker Glaucoma Overweight Your Care Team Attending Physician - Demetrius Cooper MD Primary Care Physician - Demetrius Cooper MD This Is Your Medications List APAP/butalbital/caffeine (APAP/butalbital/caffeine 325 mg-50 mg-40 mg Tab) Misc Prescription (Misc DME Prescription) Misc Prescription (Misc DME Prescription) Non-Formulary Medication (Misc Medication) acetaminophen-diphenhydrA MINE (Tylenol PM) albuterol (Albuterol (Eqv-ProAir HFA) 90 mcg/inh inhalation aerosol) amlodipine (amLODIPine 5 mg Tab) aspirin (Aspir 81) clopidogrel (Plavix 75 mg Tab) dorzolamide ophthalmic (dorzolamide ophthalmic 2% solution) famotidine (Pepcid 20 mg Tab) fluticasone nasal (Flonase 0.05 mg/inh Geneva) furosemide (furosemide 20 mg Tab) irbesartan (irbesartan [...] Cap) Procedures Performed Ablation (08/17/2023), Colonoscopy (06/14/2023), Esophagogastroduodenoscop y (04/15/2023), Esophagogastroduodenoscop y (05/20/2020), Angioplasty, Cardiac pacemaker procedure, Cataract, Cholecystectomy, [...] Resonance Imaging Wednesday 10:15 AM EDT With: Allison CASON, Demetrius Rosa Where: [facility] Invalid Interpretation Code [address] [place] [address]- \. br\ Wednesday 2:30 PM EDT \.br\ With:\.br\ Where: [facility] [facility] Patient Educationon 11-08-19 Patient Education Endocrinology [...] Carrots. Green beans. Tomatoes. Peppers. Onions. Cucumbers. Eden sprouts. Grains Whole grains, such as whole-wheat or whole-grain bread, crackers, tortillas, cereal, and pasta. Unsweetened oatmeal. (more content not included)... Normal [facility] Pre-Visit Planningon 024 Pre-Visit Planning - From: Bobbi Hall To: Demetrius Cooper MD; Sent: 11/05/2023 11:21:25 EDT Subject: Pre-Visit Planning Due Date/Time: 11/05/2023 11:21:00 EDT Caller Name: JEREMIE BENNETT; Caller Number: H De Dr. Cooper. During a pre-visit planning chart [...] feel free to contact me at extension [phone]. Thank you! Bobbi Hall LPN From: Demetrius Cooper MD To: Bobbi Hall; Sent: 11/07/2023 11:18:34 EDT Subject: RE: Pre-Visit Planning Caller Name: JEREMIE BENNETT; Caller Number: H -Thoracic aortic ectasia Normal [address] [facility] Insurance Correspondenceon 0 10-25-2023 Insurance Correspondence [id number]#1.00TIFF Normal [facility] Gastroenterology Office/Clin ic Noteon 10-21-2023 Gastroenterology [...] MRCP in 2 years. MRCP completed at [facility] 02/16/2023 showed 3 mm cystic lesion in pancreatic body. Patient was evaluated at [facility]: Dr. 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 5. History of colon polyps (Z86.010: Personal history of colonic polyps) MRI 02/16/23 @ [facility]: IMPRESSION: NO ACUTE FINDINGS. 3 MM CYSTIC [...] sidebranch IPMN- 04/[address] Aguilar @ [facility] Repeat MRCP 02/2024 2. RUQ pain (R10.11: [...] habits Procedure/Surgical History Ablation (08/17/2023), Colonoscopy (06/14/2023), Esophagogastroduodenoscop y (04/15/2023), Esophagogastroduodenoscop y (05/20/2020), Angioplasty, Cardiac pacemaker procedure, Cataract, Cholecystectomy, Colonoscopy, Hernia repair, Prostate e (more content not included)... Normal [facility] Comment on above: Result Comment: Elec tronically Signed By: Beatriz CASON, Inez Funes\.br\Date and Time Signed: 10/21/23 15:38 EDT\.br\Electronically Co-Signed By: Eduarda Sims MA\.br\Date and Time Co-Signed: 10/21/23 15:27 EDT Celiac Disease Comprehensive on 09-20-2023 Endomysium IgA Ql (S) Negative Invalid Interpretation Code Negative [facility] Comment on above: Performed By: #### 1 [id number] ####[facility] [address] [place] [address] Gliadin peptide IgA Qn (S) 4 unit(s) Invalid Interpretation Code 0-19 [facility] Comment on above: Result Comment: Nega tive 0 - 19 Weak Positive 20 - 30 Moderate to Strong Positive >30 Performed By: #### 1 [id number] ####[facility] [address] [place] [address] Gliadin peptide IgG Qn (S) 4 unit(s) Invalid Interpretation Code 0-19 [facility] Comment on above: Result Comment: Nega tive 0 - 19 Weak Positive 20 - 30 Moderate to Strong Positive >30 Performed By: #### 1 [id number] ####[facility] [address] [place] [address] IgA [Mass/Vol] 136 mg/dL Invalid Interpretation Code 61-437 [facility] Comment on above: Result Comment: Perf ormed at: [facility] [address] [id number] PhD [employer] Performed By: #### 1 [id number] ####[facility] [address] [place] [address] tTG IgA Qn (S) <2 Invalid Interpretation Code 0-3 [facility] Comment on above: Result Comment: Nega tive 0 - 3 Weak Positive 4 - 10 Positive >10 Tissue Transglutaminase (tTG) has been identified as the endomysial antigen. Studies have demonstr- ated that endomysial IgA antibodies have over 99% specificity for gluten sensitive enteropathy. Performed By: #### 1 [id number] ####[facility] [address] [place] [address] tTG IgG Qn (S) <2 Invalid Interpretation Code 0-5 [facility] Comment on above: Result Comment: Nega tive 0 - 5 Weak Positive 6 - 9 Positive >9 Performed By: #### 1 [id number] ####[facility] [address] [place] [address] Ambulatory Visit Summaryon 0 09-17-2023 Ambulatory Visit Summary JEREMIE BENNETT :1940 Visit Date:09/17/2023 Ambulatory Visit Instructions Your Diagnosis RUQ pain Bloating Chronic GERD Pancreatic cyst History of colon polyps Your Care Team Attending Physician - nAjali Ruby CNP Primary Care Physician - Demetrius Cooper MD This Is Your Medications List [...] 2% solution) fluticasone nasal (Flonase 0.05 mg/inh Geneva) fluticasone nasal (fluticasone Nasal 0.05 mg/inh Malcom) furosemide (furosemide 20 mg Tab) irbesartan (irbesartan [...] Cap) Procedures Performed Ablation (08/17/2023), Colonoscopy (06/14/2023), Esophagogastroduodenoscop y (04/15/2023), Esophagogastroduodenoscop y (05/20/2020), Angioplasty, Cardiac pacemaker procedure, Cataract, Cholecystectomy, Colonoscopy, Hernia repair, Prostate excision, Tonsillectomy, Vasectomy. Discharge Vitals Temperature (Temporal Artery) 36.3 ?C Heart Rate (Peripheral) 66 Blood Pressure 123/66 Height 162 cm Height 64 in Weight 79.7 kg Weight 175.34 lb BMI 30.37 What to do next Scheduled Follow-Up Appointments Wednesday 1:00 PM EDT With: Where: [facility] Invalid Interpretation Code [address] [place] [address]- \. br\ You Need to Schedule the Following Appointmen ts\.br\ Follow Up with Sammi CASON, Jaiden Douglas GAS, MED When: Within 3 months\.br \ Where:\.br \ [address], [address]\.br\ [place] [address].br \ [phone] \.br\ You Need to Complete the Following\ .br\ Celiac Disease Comprehens rosa, Blood, Routine collect, 09/17/23, Order for future visit, Lab Collect, RUQ pain [facility] Consent for Treatmenton 050 Consent for Treatment [id number] Normal [facility] Gastroenterology Office/Clin ic Noteon 09-17-2023 Gastroenterology [...] taking Plavix. Patient was previously referred to [facility] regarding pancreatic cyst. Patient had previous [...] hemorrhoids. Previous review of outside records from [facility] from 03/[address] abdomen/pelvis that revealed prominent amount of fluid in colon suggesting diarrhea, diverticulosis. Patient had previous ultrasound of RUQ 09/2019 at outside facility that revealed 0.7 cm pancreatic cyst and cholelithiasis. Patient reports history of cholecystectomy in 2019. Previous labs at outside facility 11/2022 revealed normal BUN, normal creatinine, normal LFTs, normal H&H. Outside record from [facility] from 04/01/2020 indicated patient had RUQ ultrasound that revealed no acute process, fatty change in liver. Ultrasound of abdomen 12/17/2022 revealed 6 mm pancreatic cyst and radiology recommended MRI with contrast or MRCP in 2 years. MRCP completed at [facility] 02/16/2023 showed 3 mm cystic lesion in pancreatic body. I recommended for patient to be referred to [facility] for further evaluation regarding pancreatic cyst and patient was referred. Previous EGD with general surgery 04/15/2023 that was normal. Biopsy of antrum revealed mild chronic inactive gastritis, negative for intestinal metaplasia, negative for H. pylori. Stool testing negative for infectious process 03/10/23. Patient was evaluated at [facility]: Dr. Pringle regarding pancreatic cyst 04/28/2023 [...] to auscult (more content not included)... Normal [facility] Comment on above: Result Comment: Elec tronically Signed By: Flori GARZA, Anjali Omalley\.marco a\Date and Time Signed: 09/17/23 09:27 EDT Patient [...] grapefruit, pineapple, and nury. Vegetables Deep-fried vegetables. Cook Islander fries. Any vegetables prepared with added fat. [...] reflux di (more content not included)... Normal [facility] Consultation Noteon 09-15-19 24 Consultation Note [id number] [facility] Ambulatory Visit Summaryon 0 08-30-2023 Ambulatory Visit Summary JEREMIE BENNETT :1940 Visit Date:08/30/2023 Ambulatory Visit Instructions Your Diagnosis Type 2 diabetes mellitus without complication, without long-term current use of insulin Irregular bowel habits Primary hypertension BMI 29.0-29.9,adult Over weight Former smoker Your Care Team Attending Physician - Demetrius Cooper MD Primary Care Physician - Demetrius Cooper MD This Is Your Medications List [...] mg Tab) fluticasone nasal (Flonase 0.05 mg/inh [place]) fluticasone nasal (fluticasone Nasal 0.05 mg/inh Malcom) furosemide (furosemide 20 mg Tab) irbesartan (irbesartan [...] Tab) Procedures Performed Ablation (08/17/2023), Colonoscopy (06/14/2023), Esophagogastroduodenoscop y (04/15/2023), Esophagogastroduodenoscop y (05/20/2020), Angioplasty, Cardiac pacemaker procedure, Cataract, Cholecystectomy, Colonoscopy, Hernia repair, Prostate excision, Tonsillectomy, Vasectomy. Discharge Vitals Temperature (Oral) 36.5 ?C Heart Rate (Peripheral) 72 Respiratory Rate 20 Blood Pressure 122/66 Height 162 cm Height 64 in Weight 78.4 kg Weight 172.48 lb BMI 29.87 What to do next Scheduled Follow-Up Appointments 2023 2:00 PM EDT With: Anjali Ruby CNP Where: [facility] Invalid Interpretation Code [address] [place] [address]- \. br\ Wednesday 10:15 AM EDT \.br\ With: Allison CASON, Demetrius Rosa\.br\ Where: [facility] Office/Clini c Noteon 08-30-2023 [...] - DM shoes ordered. Ordered: A1c POC 63367 2. Irregular bowel habits (R19.8: Other specified symptoms and signs involving the digestive system and abdomen) - No Gallbladder. - Will try cholestyramin Ordered: A1c POC 47365 3. Primary hypertension (I10: Essential (primary) hypertension) - At goal Ordered: A1c POC 65044 4. BMI 29.0-29.9,adult (Z68.29: Body mass index [BMI] 29.0-29.9, adult) - BMI education given Ordered: A1c POC 24956 5. Over weight (E66.3: Overweight) - Diet and exercise advised Ordered: A1c POC 45131 6. Former smoker (Z87.891: Personal history of nicotine dependence) - Please stop smoking. Orders: cholestyramine, 5 gram, 1 packet(s), Oral, BID, 180 packet(s), Refill(s) 0, [facility] #[id number], 162, cm, 08/30/23 10:00:00 EDT, Height/Length Dosing, 78.4, kg, 08/30/23 10:00:00 EDT, Weight Dosing metformin, 500 mg = 1 tab(s), Oral, Daily, # 180 tab(s), Refills(s) 0, Pharmacy: [facility] #[id number], 163, cm, 05/31/23 10:14:00 EST, Height/Length Dosing, [...] Diarrhea Procedure/Surgical History Ablation (08/17/2023), Colonoscopy (06/14/2023), Esophagogastroduodenoscop y (04/15/2023), Esophagogastroduodenoscop y (05/20/2020), Angioplasty, Cardiac pacemaker procedure, Cataract, Cholecystectomy, [...] 1 drop(s), OPTH, BID Flonase 0.05 mg/inh Geneva, 1 spray(s), Nasal, BID fluticasone Nasal 0.05 mg/inh Malcom furosemide 20 mg Tab, 20 mg= 1 tab(s), Oral, Daily irbesartan 300 mg Tab, 300 mg= 1 tab(s), Oral, Daily isosorbide mononitrate, 30 mg, Oral, qAM latanoprost ophthalmic, qPM latanoprost Opth 0.005% Janee loperamide 2 mg Tab, 2 mg= 1 tab(s), Oral, q4hr Metamucil metformin 500 mg ER Tab, 500 mg= 1 tab(s), Oral, Daily [facility] Prescription, See Instructions [facility] Prescription, See Instructions Multivitamin, Therapeutic w/ Minerals, Oral, Daily omeprazole 40 mg Cap-DR, See Instructions Pepcid 20 mg Tab, 20 mg= 1 tab(s), Oral, Once a day (at bedtime) Plavix 75 mg Tab, 75 mg= 1 tab(s), Oral, Daily rosuvastatin 10 mg Tab, See Instructions, 3 refills sotalol 80 mg Tab, 0.5 tab, Oral, B (more content not included)... Normal [facility] Comment on above: Result Comment: Elec tronically Signed By: Allison CASON, Demetrius Branham.marco a\Date and Time Signed: 08/30/23 10:21 EDT CNPNon 04-05-2023 CNPN Telephone ([id number]) ----- JEREMIE BENNETT ([id number]) 1940 M Date Time Provider Department 04/05/23 VAISHALI PRINGLE [id number] During your visit today, we recorded the following information about you: Lolly Dumont 04/05/2023 9:55 AM Signed Received records from [facility]. Reports for imaging listed below scanned. 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 - clopidogrel (PLAVIX) 75 mg tablet - furosemide (LASIX) 20 mg tablet Take 20 mg by mouth. - fluticasone (FLONASE) 50 mcg/actuation nasal spray 1 Geneva. - omeprazole (PRILOSEC) 40 mg capsule Take [...] Encounter Status:Closed by [facility] COU[facility] Visit ([id number] ) ----- JEREMIE BENNETT ([id number]) 1940 M Date Time Provider Department 04/01/23 1:00 PM VAISHALI PRINGLE [id number] During your visit today, we recorded the [...] GI re (more content not included)... Normal [facility] CHEMISTRYOrdered By: SYSTEM SYSTEM on 03-10-2023 Albumin [Mass/Vol] 4.0 g/dL Normal 3.3 - 5.0 gm/dL [facility] Remisol Albumin/Globulin [Mass ratio] 1.2 {ratio} Normal [...] Bilirubin [Mass/Vol] 0.4 mg/dL Normal 0.0 - 1 .1 mg/dL [facility] Remisol Calcium [Mass/Vol] 9.2 mg/dL Normal 8.9 - 11. 1 mg/dL [facility] Remisol Chloride [Moles/Vol] 108 mmol/L Normal 101 - 1 11 mmol/L [facility] Remisol CO2 [Moles/Vol] 25 mmol/L Normal 21 - 31 mmol/L [facility] Remisol Creatinine [Mass/Vol] 1.1 mg/dL Normal 0.5 - 1.3 mg/dL [facility] Remisol GFR/1.73 sq M.predicted among non-blacks MDRD (S/P/Bld) [Vol rate/Area] 67 mL/min/1.73 m2 Normal >=59mL/min /1.73 m2 [facility] Chem S Comment on above: Interpretive Data: [...] 7.3 g/dL Normal 6.0 - 7.8 gm/dL [facility] Remisol Sodium [Moles/Vol] 139 mmol/L Normal 135 - 145 mmol/L [facility] Remisol Urea nitrogen [Mass/Vol] 20 mg/dL Normal 5 - 21 mg/dL [facility] Remisol Urea nitrogen/Creatinine [Mass ratio] 18 mg/mg Normal 10 - 20 [facility] Remisol HEMATOLOGYOrdered By: SYSTEM SYSTEM on 03-10-2023 Basophils/100 WBC (Bld) 0.4 % Normal 0.0 - 2.0 % [facility] HemeAutoSS Basophils/Leukocytes Auto (Bld) [Pure # fraction] 0.0 E9/L Normal 0.0 - 0.2 E9/L [facility] HemeAutoSS Eosinophils/100 WBC (Bld) 2.4 % Normal 0.0 - 8.0 % [facility] HemeAutoSS Eosinophils/Leukocytes Auto (Bld) [Pure # fraction] 0.2 E9/L Normal 0.0 - 0.5 E9/L [facility] HemeAutoSS Lymphocytes/100 WBC (Bld) 21.9 % Normal 14.0 - 50.0 % [facility] HemeAutoSS Lymphocytes/Leukocytes Auto (Bld) [Pure # fraction] 1.8 E9/L Normal 1.0 - 4.0 E9/L [facility] HemeAutoSS Monocytes/100 WBC (Bld) 6.9 % Normal 4.0 - 14.0 % [facility] HemeAutoSS Monocytes/Leukocytes Auto (Bld) [Pure # fraction] 0.6 E9/L Normal 0.2 - 1.0 E9/L [facility] HemeAutoSS Neutrophils/100 WBC (Bld) 68.4 % Normal 36.0 - 75.0 % [facility] HemeAutoSS Neutrophils/Leukocytes Auto (Bld) [Pure # fraction] 5.8 E9/L Normal 2.0 - 7.5 E9/L [facility] HemeAutoSS HEMATOLOGYOrdered By: Ethel Peters on 03-10-2023 Erythrocyte distribution width (RBC) [Ratio] 13.9 % Normal 10.9 - 14.2 % [facility] HemeAutoSS Hematocrit (Bld) [Volume fraction] 43.6 % Normal 37.7 - 49.0 % [facility] HemeAutoSS Hemoglobin (Bld) [Mass/Vol] 14.5 g/dL Normal [...] Negative 3 (03/10/23 12:45 PM) Normal Negative [facility] Man Sero Comment on above: Interpretive Data: T he semi-quantitative detection of elevated levels of fecal lactoferrin is a marker for fecal leukocytes and an indication of intestinal inflammation. CHEMISTRYOrdered By: Yash Shah on 11-23-2022 Albumin DL <= 20 mg/L (U) [Mass/Vol] microgram/mL Normal 0.0 - 19.0 mcg/mL [facility] Remisol Albumin Elph (U) [Mass fraction] mg/dL Invalid Interpretation Code [facility] Remisol Creatinine (U) [Mass/Vol] 15.9 mg/dL Invalid Interpretation Code [facility] Chem S U Prot/Creat Ratio [facility] Invalid Interpretation Code 0.00 - 200.00 [facility] Chem S Comment on above: Result Comment: Unab le to calculate due to Protein being less than analyzer reportable range. CBC AUTO DIFFon 09-29-2022 BASO # 0.1 103/ul Normal 0.0-0.1 [facility] Comment on above: Performed By: #### C BC #### [facility] [address] [place] [address] Dr. Ramsey Sanchez Basophils/100 WBC (Bld) 0.7 % Normal 0.2-2.0 [facility] Comment on above: Performed By: #### C BC #### [facility] [address] [place] [address] Dr. Ramsey Sanchez EO # 0.2 103/ul Normal 0.0-0.7 [facility] Comment on above: Performed By: #### C BC #### [facility] [address] [place] [address] Dr. Ramsey Sanchez Eosinophils/100 WBC (Bld) 1.5 % Normal 0.9-7.0 [facility] Comment on above: Performed By: #### C BC #### [facility] [address] [place] [address] Dr. Ramsey Sanchez Erythrocyte distribution width (RBC) [Ratio] 13.6 % Normal 11.0-15.0 [facility] Comment on above: Performed By: #### C BC #### [facility] [address] [place] [address] Dr. Ramsey Sanchez Hematocrit (Bld) [Volume fraction] 43.5 % Normal 42.0-54.0 [facility] Comment on above: Performed By: #### C BC #### [facility] [address] [place] [address] Dr. Ramsey Sanchez Hemoglobin (Bld) [Mass/Vol] 13.9 g/dL Critically low 14.0-18.0 [facility] Comment on above: Performed By: #### C BC #### [facility] [address] [place] [address] Dr. Ramsey Sanchez IG # 0.29 10e3/ul Critically high 0.00-0.03 [facility] Comment on above: Performed By: #### C BC #### [facility] [address] [place] [address] Dr. Ramsey Sanchez IG % 2.9 % Critically high 0.0-0.5 [facility] Comment on above: Performed By: #### C BC #### [facility] [address] [place] [address] Dr. Ramsey Sanchez LYMPH # 2.1 103/ul Normal 1.2-3.8 [facility] Comment on above: Performed By: #### C BC #### [facility] [address] [place] [address] Dr. Ramsey Sanchez Lymphocytes/100 WBC (Bld) 20.8 % Normal 20.5-60.0 [facility] Comment on above: Performed By: #### C BC #### [facility] [address] [place] [address] Dr. Ramsey Sanchez MANUAL DIFF REQ NO Normal [facility] Comment on above: Performed By: #### C BC #### [facility] [address] [place] [address] Dr. Ramsey Sanchez MCH (RBC) [Entitic mass] 29.6 pg Normal 25.9-34.0 [facility] Comment on above: Performed By: #### C BC #### [facility] [address] [place] [address] Dr. Ramsey Sanchez MCHC (RBC) [Mass/Vol] 32.0 g/dL Normal 29.9-35.2 [facility] Comment on above: Performed By: #### C BC #### [facility] [address] [place] [address] Dr. Ramsey Sanchez MCV (RBC) [Entitic vol] 92.6 fL Normal 80.0-94.0 [facility] Comment on above: Performed By: #### C BC #### [facility] [address] [place] [address] Dr. Ramsey Sanchez MONO # 0.8 103/ul Normal 0.3-0.8 [facility] Comment on above: Performed By: #### C BC #### [facility] [address] [place] [address] Dr. Ramsey Sanchez Monocytes/100 WBC (Bld) 8.3 % Normal 1.7-12.0 [facility] Comment on above: Performed By: #### C BC #### [facility] [address] [place] [address] Dr. Ramsey Sanchez NEUT # 6.5 103/ul Normal 1.4-6.5 [facility] Comment on above: Performed By: #### C BC #### [facility] [address] [place] [address] Dr. Ramsey Sanchez Neutrophils/100 WBC (Bld) 65.8 % Normal 43.0-75.0 [facility] Comment on above: Performed By: #### C BC #### [facility] [address] [place] [address] Dr. Ramsey Sanchez Platelet mean volume (Bld) [Entitic vol] 11.1 fL Normal 9.5-13.5 [facility] Comment on above: Performed By: #### C BC #### [facility] [address] [place] [address] Dr. Ramsey Sanchez PLT 198 103/ul Normal 150-450 [facility] Comment on above: Performed By: #### C BC #### [facility] [address] [place] [address] Dr. Ramsey Sanchez RBC 4.70 106/ul Normal 4.70-6.10 [facility] Comment on above: Performed By: #### C BC #### [facility] [address] [place] [address] Dr. Ramsey Sanchez WBC 9.9 103/ul Normal 4.0-11.0 [facility] Comment on above: Performed By: #### C BC #### [facility] [address] [place] [address] Dr. Ramsey Sanchez ER URINE PROFILEon 3 Bilirubin Ql (U) Negative Normal NEGATIVE [facility] Comment on above: Performed By: #### E RUR #### [facility] [address] [place] [address] Dr. Ramsey Sanchez Clarity (U) CLEAR Normal CLEAR [facility] Comment on above: Performed By: #### E RUR #### [facility] [address] [place] [address] Dr. Ramsey Sanchez Color (U) YELLOW Normal YELLOW [facility] Comment on above: Performed By: #### E RUR #### [facility] [address] [place] [address] Dr. Ramsey IVORY A micrscopic examina tion will be performed if indicated. Normal [facility] Comment on above: Performed By: #### E RUR #### [facility] [address] [place] [address] Dr. Ramsey Sanchez Glucose Ql (U) Negative Normal NEGATIVE [facility] Comment on above: Performed By: #### E RUR #### [facility] [address] [place] [address] Dr. Ramsey Sanchez Hemoglobin Ql (U) Negative Normal NEGATIVE [facility] Comment on above: Performed By: #### E RUR #### [facility] [address] [place] [address] Dr. Ramsey Sanchez Ketones Ql (U) Negative Normal NEGATIVE [facility] Comment on above: Performed By: #### E RUR #### [facility] [address] [place] [address] Dr. Ramsey Sanchez LEUKOCYTES Negative Normal NEGATIVE [facility] Comment on above: Performed By: #### E RUR #### [facility] [address] [place] [address] Dr. Ramsey Sanchez Nitrite Ql (U) Negative Normal NEGATIVE [facility] Comment on above: Performed By: #### E RUR #### [facility] [address] [place] [address] Dr. Ramsey Sanchez pH (U) 5.5 [pH] Normal 5-9 [facility] Comment on above: Performed By: #### E RUR #### [facility] [address] [place] [address] Dr. Ramsey Sanchez SPEC GRAVITY 1.020 Normal 1.005-<=1. 025 [facility] Comment on above: Performed By: #### E RUR #### [facility] [address] [place] [address] Dr. Ramsey Sanchez UA PROTEIN Negative Normal NEGATIVE/ TRACE [facility] Comment on above: Performed By: #### E RUR #### [facility] [address] [place] [address] Dr. Ramsey Sanchez UR MICRO IND NOT INDICATED Normal [facility] Comment on above: Performed By: #### E RUR #### [facility] [address] [place] [address] Dr. Ramsey Sanchez Urobilinogen Qn (U) 0.2 {Leatha'U}/dL Normal 0.2 - 1. 0 [facility] Comment on above: Performed By: #### E RUR #### [facility] [address] [address] [address] Ramsey Sanchez LACTATE/LACTIC ACIDon 2022 Lactate [Moles/Vol] 1.7 mmol/L Normal 0.4-2.0 [facility] Comment on above: Performed By: #### L ACT #### [facility] [address] [place] [address] Dr. Ramsey Sanchez PROF 14(COMP METB)on 023 Albumin [Mass/Vol] 3.1 g/dL Critically low 3.4-5.0 [facility] Comment on above: Performed By: #### C LISANDRO, HSTROPN #### [facility] [address] [place] [address] Dr. Ramsey Sanchez Albumin/Globulin [Mass ratio] 0.8 {ratio} Normal [facility] Comment on above: Performed By: #### C MP, HSTROPN #### [facility] [address] [place] [address] Dr. Ramsey Sanchez ALP [Catalytic activity/Vol] 73 U/L Normal 46-116 [facility] Comment on above: Performed By: #### C MP, HSTROPN #### [facility] [address] [address] [address] Ramsey Sanchez ALT [Catalytic activity/Vol] 22 U/L Normal 16-63 [facility] Comment on above: Performed By: #### C MP, HSTROPN #### [facility] [address] [place] [address] Dr. Ramsey Sanchez Anion gap [Moles/Vol] 13.5 mmol/L Normal [facility] Comment on above: Performed By: #### C MP, HSTROPN #### [facility] [address] [address] [address] Ramsey Sanchez AST [Catalytic activity/Vol] 26 U/L Normal 15-37 [facility] Comment on above: Performed By: #### C MP, HSTROPN #### [facility] [address] [address] [address] Ramsey Sanchez Bilirubin [Mass/Vol] 0.4 mg/dL Normal 0.2-1.0 [facility] Comment on above: Performed By: #### C MP, HSTROPN #### [facility] [address] [place] [address] Dr. Ramsey Sanchez Calcium [Mass/Vol] 8.4 mg/dL Critically low 8.5-10.1 [facility] Comment on above: Performed By: #### C MP, HSTROPN #### [facility] [address] [place] [address] Dr. Ramsey Sanchez Chloride [Moles/Vol] 107 mmol/L Normal 98-107 [facility] Comment on above: Performed By: #### C MP, HSTROPN #### [facility] [address] [place] [address] Dr. Ramsey Sanchez CO2 [Moles/Vol] 26.1 mmol/L Normal 21.0-32.0 [facility] Comment on above: Performed By: #### C MP, HSTROPN #### [facility] [address] [place] [address] Dr. Ramsey Sanchez Creatinine [Mass/Vol] 0.94 mg/dL Normal 0.70-1.30 [facility] Comment on above: Performed By: #### C MP, HSTROPN #### [facility] [address] [place] [address] Dr. Ramsey Sanchez EGFR-AF SOUTH KOREAN >60 Normal >=60 [facility] Comment on above: Performed By: #### C MP, HSTROPN #### [facility] [address] [place] [address] Dr. Ramsey Sanchez EGFR-NON AF [place]OU[place]OREAN >60 Normal >=60 [facility] Comment on above: Performed By: #### C LISANDRO, HSTROPN #### [facility] [address] [address] [address] Ramsey Sanchez Globulin (S) [Mass/Vol] 3.7 g/dL Normal [facility] Comment on above: Performed By: #### C LISANDRO, HSTROPN #### [facility] [address] [address] [address] Ramsey Sanchez Glucose [Mass/Vol] 118 mg/dL Critically high 74-106 [facility] Comment on above: Performed By: #### C LISANDRO, HSTROPN #### [facility] [address] [place] [address] Dr. Ramsey Sanchez Potassium [Moles/Vol] 3.6 mmol/L Normal 3.5-5.1 [facility] Comment on above: Performed By: #### C LISANDRO, HSTROPN #### [facility] [address] [place] [address] Dr. Ramsey Sanchez Protein [Mass/Vol] 6.8 g/dL Normal 6.4-8.2 [facility] Comment on above: Performed By: #### C LISANDRO, HSTROPN #### [facility] [address] [place] [address] Dr. Ramsey Sanchez Sodium [Moles/Vol] 143 mmol/L Normal 136-145 [facility] Comment on above: Performed By: #### C LISANDRO, HSTROPN #### [facility] [address] [place] [address] Dr. Ramsey Sanchez Urea nitrogen [Mass/Vol] 19.0 mg/dL Critically high 7.0-18.0 [facility] [facility] Comment on above: Performed By: #### C LISANDRO, HSTROPN #### [facility] [address] [place] [address] Dr. Ramsey Sanchez Urea nitrogen/Creatinine [Mass ratio] 20.2 mg/mg Normal [facility] Comment on above: Performed By: #### C LISANDRO, HSTROPN #### [facility] [address] [address] [address] Ramsey Sanchez TROPONIN, HIGH SENSITIVITYon 09-29-2022 HSTROP 9.8 pg/mL Normal 4.0-76.1 [facility] Comment on above: Result Comment: CUT- OFF POINTS HAVE BEEN ESTABLISHED BASED ON THE FOURTH UNIVERSAL DEFINITIONS OF MYOCARDIAL INFARCTION. THE UPPER REFERENCE LIMIT (URL) OF TROPONIN, DEFINED THE 99TH PERCENTILE OF cTnI DISTRIBUTION IN A REFERENCE POPULATION, HAS BEEN CONFIRMED THE DECISION THRESHOLD FOR CA DIAGNOSIS. Performed By: #### C MP, HSTROPN #### [facility] [address] [address] [address] Ramsey Sanchez XR CHEST 1 Von [...] hardware and overlying objects out of the [id number]. Electronically authenticated by: ALANNA CARLOS Date: 2022-09-29 16:37 Normal [facility] BNPon 09-25-2022 Natriuretic peptide B (Bld) [Mass/Vol] 720.0 pg/mL Normal <=1,800.0 [facility] Comment on above: Performed By: #### C XSTOOL #### [facility] [address] [address] [address] Ramsey Sanchez CARDIAC RAFI ADMITon 023 CK [Catalytic activity/Vol] 198 U/L Normal 39-308 [facility] Comment on above: Performed By: #### C XSTOOL #### [facility] [address] [place] [address] Dr. Ramsey Sanchez CK.MB [Mass/Vol] 2.62 ng/mL Normal <=3.60 [facility] Comment on above: Performed By: #### C XSTOOL #### [facility] [address] [place] [address] Dr. Ramsey Sanchez HSTROP 8.8 pg/mL Normal 4.0-76.1 [facility] Comment on above: Result Comment: CUT- OFF POINTS HAVE BEEN ESTABLISHED BASED ON THE FOURTH UNIVERSAL DEFINITIONS OF MYOCARDIAL INFARCTION. THE UPPER REFERENCE LIMIT (URL) OF TROPONIN, DEFINED THE 99TH PERCENTILE OF cTnI DISTRIBUTION IN A REFERENCE POPULATION, HAS BEEN CONFIRMED THE DECISION THRESHOLD FOR CA DIAGNOSIS. Performed By: #### C XSTOOL #### [facility] [address] [place] [address] Dr. Ramsey Sanchez MARILYN 69 ng/mL Normal 16-96 [facility] Comment on above: Performed By: #### C XSTOOL #### [facility] [address] [place] [address] Dr. Ramsey Sanchez CBC AUTO DIFFon 09-25-2022 BASO # 0.0 103/ul Normal 0.0-0.1 [facility] Comment on above: Performed By: #### C BC #### [facility] [address] [place] [address] Dr. Ramsey Sanchez Basophils/100 WBC (Bld) 0.2 % Normal 0.2-2.0 [facility] Comment on above: Performed By: #### C BC #### [facility] [address] [place] [address] Dr. Ramsey Sanchez EO # 0.0 103/ul Normal 0.0-0.7 [facility] Comment on above: Performed By: #### C BC #### [facility] [address] [place] [address] Dr. Ramsey Sanchez Eosinophils/100 WBC (Bld) 0.1 % Critically low 0.9-7.0 [facility] Comment on above: Performed By: #### C BC #### [facility] [address] [place] [address] Dr. Ramsey Sanchez Erythrocyte distribution width (RBC) [Ratio] 14.0 % Normal 11.0-15.0 [facility] Comment on above: Performed By: #### C BC #### [facility] [address] [place] [address] Dr. Ramsey Sanchez Hematocrit (Bld) [Volume fraction] 45.4 % Normal 42.0-54.0 [facility] Comment on above: Performed By: #### C BC #### [facility] [address] [place] [address] Dr. Ramsey Sanchez Hemoglobin (Bld) [Mass/Vol] 14.4 g/dL Normal 14.0-18.0 [facility] Comment on above: Performed By: #### C BC #### [facility] [address] [place] [address] Dr. Ramsey Sanchez IG # 0.08 10e3/ul Critically high 0.00-0.03 [facility] Comment on above: Performed By: #### C BC #### [facility] [address] [place] [address] Dr. Ramsey Sanchez IG % 0.9 % Critically high 0.0-0.5 [facility] Comment on above: Performed By: #### C BC #### [facility] [address] [place] [address] Dr. Ramsey Sanchez LYMPH # 1.6 103/ul Normal 1.2-3.8 [facility] Comment on above: Performed By: #### C BC #### [facility] [address] [place] [address] Dr. Ramsey Sanchez Lymphocytes/100 WBC (Bld) 17.9 % Critically low 20.5-60.0 [facility] Comment on above: Performed By: #### C BC #### [facility] [address] [place] [address] Dr. Ramsey Sanchez MANUAL DIFF REQ NO Normal [facility] Comment on above: Performed By: #### C BC #### [facility] [address] [address] [address] Ramsey Sanchez MCH (RBC) [Entitic mass] 29.8 pg Normal 25.9-34.0 [facility] Comment on above: Performed By: #### C BC #### [facility] [address] [place] [address] Dr. Ramsey Sanchez MCHC (RBC) [Mass/Vol] 31.7 g/dL Normal 29.9-35.2 [facility] Comment on above: Performed By: #### C BC #### [facility] [address] [place] [address] Dr. Ramsey Sanchez MCV (RBC) [Entitic vol] 94.0 fL Normal 80.0-94.0 [facility] Comment on above: Performed By: #### C BC #### [facility] [address] [place] [address] Dr. Ramsey Sanchez MONO # 0.9 103/ul Critically high 0.3-0.8 [facility] Comment on above: Performed By: #### C BC #### [facility] [address] [place] [address] Dr. Ramsey Sanchez Monocytes/100 WBC (Bld) 9.6 % Normal 1.7-12.0 [facility] Comment on above: Performed By: #### C BC #### [facility] [address] [place] [address] Dr. Ramsey Sanchez NEUT # 6.3 103/ul Normal 1.4-6.5 [facility] Comment on above: Performed By: #### C BC #### [facility] [address] [place] [address] Dr. Ramsey Sanchez Neutrophils/100 WBC (Bld) 71.3 % Normal 43.0-75.0 [facility] Comment on above: Performed By: #### C BC #### [facility] [address] [place] [address] Dr. Ramsey Sanchez Platelet mean volume (Bld) [Entitic vol] 11.0 fL Normal 9.5-13.5 [facility] Comment on above: Performed By: #### C BC #### [facility] [address] [place] [address] Dr. Ramsey Sanchez PLT 203 103/ul Normal 150-450 [facility] Comment on above: Performed By: #### C BC #### [facility] [address] [place] [address] Dr. Ramsey Sanchez RBC 4.83 106/ul Normal 4.70-6.10 [facility] Comment on above: Performed By: #### C BC #### [facility] [address] [place] [address] Dr. Ramsey Sanchez WBC 8.9 103/ul Normal 4.0-11.0 [facility] Comment on above: Performed By: #### C BC #### [facility] [address] [place] [address] Dr. Ramsey Sanchez LACTATE/LACTIC ACIDon 2022 Lactate [Moles/Vol] 1.0 mmol/L Normal 0.4-2.0 [facility] Comment on above: Performed By: #### C BC #### [facility] [address] [place] [address] Dr. Ramsey Sanchez PROF 14(COMP METB)on 023 Albumin [Mass/Vol] 3.7 g/dL Normal 3.4-5.0 [facility] Comment on above: Performed By: #### C XSTOOL #### [facility] [address] [place] [address] Dr. Ramsey Sanchez Albumin/Globulin [Mass ratio] 0.9 {ratio} Normal [facility] Comment on above: Performed By: #### C XSTOOL #### [facility] [address] [place] [address] Dr. Ramsey Sanchez ALP [Catalytic activity/Vol] 68 U/L Normal 46-116 [facility] Comment on above: Performed By: #### C XSTOOL #### [facility] [address] [place] [address] Dr. Ramsey Sanchez ALT [Catalytic activity/Vol] 23 U/L Normal 16-63 [facility] Comment on above: Performed By: #### C XSTOOL #### [facility] [address] [address] [address] Ramsey Sanchez Anion gap [Moles/Vol] 12.6 mmol/L Normal [facility] Comment on above: Performed By: #### C XSTOOL #### [facility] [address] [address] [address] Ramsey Sanchez AST [Catalytic activity/Vol] 21 U/L Normal 15-37 [facility] Comment on above: Performed By: #### C XSTOOL #### [facility] [address] [address] [address] Ramsey Sanchez Bilirubin [Mass/Vol] 0.3 mg/dL Normal 0.2-1.0 [facility] Comment on above: Performed By: #### C XSTOOL #### [facility] [address] [place] [address] Dr. Ramsey Sanchez Calcium [Mass/Vol] 8.8 mg/dL Normal 8.5-10.1 [facility] Comment on above: Performed By: #### C XSTOOL #### [facility] [address] [address] [address] Ramsey Sanchez Chloride [Moles/Vol] 104 mmol/L Normal 98-107 [facility] Comment on above: Performed By: #### C XSTOOL #### [facility] [address] [place] [address] Dr. Ramsey Sanchez CO2 [Moles/Vol] 26.7 mmol/L Normal 21.0-32.0 [facility] Comment on above: Performed By: #### C XSTOOL #### [facility] [address] [address] [address] Ramsey Sanchez Creatinine [Mass/Vol] 1.27 mg/dL Normal 0.70-1.30 [facility] Comment on above: Performed By: #### C XSTOOL #### [facility] [address] [place] [address] Dr. Ramsey Sanchez EGFR-AF SOUTH KOREAN >60 Normal >=60 [facility] Comment on above: Performed By: #### C XSTOOL #### [facility] [address] [address] [address] Ramsey Sanchez EGFR-NON AF [place]AN 54 mL/min/1.73m2 Critically low >=60 [facility] Comment on above: Performed By: #### C XSTOOL #### [facility] [address] [address] [address] Ramsey Sanchez Globulin (S) [Mass/Vol] 3.9 g/dL Normal [facility] Comment on above: Performed By: #### C XSTOOL #### [facility] [address] [address] [address] Ramsey Sanchez Glucose [Mass/Vol] 114 mg/dL Critically high 74-106 [facility] Comment on above: Performed By: #### C XSTOOL #### [facility] [address] [address] [address] Ramsey Sanchez Potassium [Moles/Vol] 4.3 mmol/L Normal 3.5-5.1 [facility] Comment on above: Performed By: #### C XSTOOL #### [facility] [address] [address] [address] Ramsey Sanchez Protein [Mass/Vol] 7.6 g/dL Normal 6.4-8.2 [facility] Comment on above: Performed By: #### C XSTOOL #### [facility] [address] [address] [address] Ramsey Sanchez Sodium [Moles/Vol] 139 mmol/L Normal 136-145 [facility] Comment on above: Performed By: #### C XSTOOL #### [facility] [address] [address] [address] Ramsey Sanchez Urea nitrogen [Mass/Vol] 19.0 mg/dL Critically high 7.0-18.0 [facility] Comment on above: Performed By: #### C XSTOOL #### [facility] [address] [address] [address] Ramsey Sanchez Urea nitrogen/Creatinine [Mass ratio] 15.0 mg/mg Normal [facility] Comment on above: Performed By: #### C XSTOOL #### [facility] [address] [place] [address] Dr. Ramsey Sanchez XR CHEST 1 Von [...] atelectasis or pneumonia. Electronically authenticated by: TRACY HIGHTWOER Date: 2022-09-24 23:29 Normal [facility] COVID + FLU Quick Testingon 09-22-2022 SARS-CoV-2 (COVID-19) RNA MICHELLE+probe Ql (Unsp spec) Positive [facility] Other COVID + FLU Quick Testing Negative [facility] Other POINT OF CARE GLUCOSEon 07-16 Glucose [Mass/Vol] 146 mg/dL Critically high 74-106 [facility] Comment on above: Performed By: #### C XSTOOL #### [facility] [address] [place] [address] Dr. Ramsey Sanchez US ARTERY UP EXT BILon 04-16 US ARTERY UP EXT TRISH EXAMINATION: US ART KENDALL UP EXT TRISH HISTORY: Pain in upper limb COMPARISON: No [...] ERWIN FALCON Date: 2022-04-16 17:21 Normal [facility] LACTOFERRIN FECAL QUANTon Lactoferrin, Fecal, Quant. 1.43 ug/mL(g) Normal 0.00-7.24 [facility] Comment on above: Result Comment: . [...] (IBS). Performed By: #### C XSTOOL #### [facility] [address] [place] [address] Dr. Ramsey Sanchez CBC AUTO DIFFon 03-10-2022 BASO # 0.1 103/ul Normal 0.0-0.1 [facility] Comment on above: Performed By: #### C BC #### [facility] [address] [place] [address] Dr. Ramsey Sanchez Basophils/100 WBC (Bld) 0.9 % Normal 0.2-2.0 [facility] Comment on above: Performed By: #### C BC #### [facility] [address] [place] [address] Dr. Ramsey Sanchez EO # 0.3 103/ul Normal 0.0-0.7 [facility] Comment on above: Performed By: #### C BC #### [facility] [address] [place] [address] Dr. Ramsey Sanchez Eosinophils/100 WBC (Bld) 2.6 % Normal 0.9-7.0 [facility] Comment on above: Performed By: #### C BC #### [facility] [address] [place] [address] Dr. Ramsey Sanchez Erythrocyte distribution width (RBC) [Ratio] 13.2 % Normal 11.0-15.0 [facility] Comment on above: Performed By: #### C BC #### [facility] [address] [place] [address] Dr. Ramsey Sanchez Hematocrit (Bld) [Volume fraction] 46.1 % Normal 42.0-54.0 [facility] Comment on above: Performed By: #### C BC #### [facility] [address] [place] [address] Dr. Ramsey Sanchez Hemoglobin (Bld) [Mass/Vol] 14.5 g/dL Normal 14.0-18.0 [facility] Comment on above: Performed By: #### C BC #### [facility] [address] [place] [address] Dr. Ramsey Sanchez IG # 0.15 10e3/ul Critically high 0.00-0.03 [facility] Comment on above: Performed By: #### C BC #### [facility] [address] [place] [address] Dr. Ramsey Sanchez IG % 1.3 % Critically high 0.0-0.5 [facility] Comment on above: Performed By: #### C BC #### [facility] [address] [place] [address] Dr. Ramsey Sanchez LYMPH # 2.7 103/ul Normal 1.2-3.8 [facility] Comment on above: Performed By: #### C BC #### [facility] [address] [place] [address] Dr. Ramsey Sanchez Lymphocytes/100 WBC (Bld) 23.0 % Normal 20.5-60.0 [facility] Comment on above: Performed By: #### C BC #### [facility] [address] [place] [address] Dr. Ramsey Sanchez MANUAL DIFF REQ NO Normal [facility] Comment on above: Performed By: #### C BC #### [facility] [address] [place] [address] Dr. Ramsey Sanchez MCH (RBC) [Entitic mass] 31.0 pg Normal 25.9-34.0 [facility] Comment on above: Performed By: #### C BC #### [facility] [address] [place] [address] Dr. Ramsey Sanchez MCHC (RBC) [Mass/Vol] 31.5 g/dL Normal 29.9-35.2 [facility] Comment on above: Performed By: #### C BC #### [facility] [address] [place] [address] Dr. Ramsey Sanchez MCV (RBC) [Entitic vol] 98.5 fL Critically high 80.0-94.0 [facility] Comment on above: Performed By: #### C BC #### [facility] [address] [place] [address] Dr. Ramsey Sanchez MONO # 0.9 103/ul Critically high 0.3-0.8 [facility] Comment on above: Performed By: #### C BC #### [facility] [address] [place] [address] Dr. Ramsey Sanchez Monocytes/100 WBC (Bld) 7.4 % Normal 1.7-12.0 [facility] Comment on above: Performed By: #### C BC #### [facility] [address] [place] [address] Dr. Ramsey Sanchez NEUT # 7.6 103/ul Critically high 1.4-6.5 [facility] Comment on above: Performed By: #### C BC #### [facility] [address] [place] [address] Dr. Ramsey Sanchez Neutrophils/100 WBC (Bld) 64.8 % Normal 43.0-75.0 [facility] Comment on above: Performed By: #### C BC #### [facility] [address] [place] [address] Dr. Ramsey Sanchez Platelet mean volume (Bld) [Entitic vol] 11.5 fL Normal 9.5-13.5 [facility] Comment on above: Performed By: #### C BC #### [facility] [address] [place] [address] Dr. Ramsey Sanchez PLT 243 103/ul Normal 150-450 [facility] Comment on above: Performed By: #### C BC #### [facility] [address] [place], [place] [id number] Dr. Ramsey Sanchez RBC 4.68 106/ul Critically low 4.70-6.10 [facility] Comment on above: Performed By: #### C BC #### [facility] [address] [address] [address] Ramsey Sanchez WBC 11.7 103/ul Critically high 4.0-11.0 [facility] Comment on above: Performed By: #### C BC #### [facility] [address] [address] [address] Ramsey Sanchez GLYCOHEMOGLOBIN A1Con 2021 ADA RECOMMENDATION SEE BELOW Normal [facility] Comment on above: Result Comment: ADA RECOMMENDED LIMIT 4.0 - 6.0 ADA THERAPEUTIC TARGET < 7.0 ACTION SUGGESTED > 7.0 Performed By: #### A 1C #### [facility] [address] [address] [address] Ramsey Sanchez Glucose [Mass/Vol] 123 mg/dL Normal [facility] Comment on above: Performed By: #### A 1C #### [facility] [address] [address] [address] Ramsey Sanchez HbA1c (Bld) [Mass fraction] 5.9 % Normal 4.5-6.2 [facility] Comment on above: Performed By: #### A 1C #### [facility] [address] [address] [address] Ramsey Sanchez LIPID PROFILEon 03-10-2022 CHOL-HDL RATIO NORM SEE BELOW Normal [facility] Comment on above: Result Comment: 3.3 - 4.4 LOW RISK 4.4 - 7.1 AVERAGE RISK 7.1 - 11.0 MODERATE RISK >11.0 HIGH RISK Performed By: #### C BC #### [facility] [address] [address] [address] Ramsey Sanchez Cholesterol [Mass/Vol] 121 mg/dL Normal <=200 [facility] Comment on above: Performed By: #### C BC #### [facility] [address] [address] [address] Ramsey Sanchez Cholesterol in HDL [Mass/Vol] 30 mg/dL Critically low 40-60 [facility] Comment on above: Performed By: #### C BC #### [facility] [address] [place], [place] [address] Dr. Ramsey Sanchez Cholesterol in LDL [Mass/Vol] 47.6 mg/dL Normal [facility] Comment on above: Performed By: #### C BC #### [facility] [id number] Ramsey Sanchez Cholesterol.total/Chol esterol in HDL [Mass ratio] 4.0 {ratio} Normal [facility] Comment on above: Performed By: #### C BC #### [facility] [address] [address] [address] Ramsey Sanchez HDL NORMAL > or = 60 mg/dl - LO W CARDIOVASCULAR RISK <40 mg/dl - HIGH CARDIOVASCULAR RISK Normal [facility] Comment on above: Performed By: #### C BC #### [facility] [address] [address] [address] Ramsey Sanchez LDL CALC NORMAL SEE BELOW Normal [facility] Comment on above: Result Comment: <100 mg/dl OPTIMAL 100 - 129 mg/dl NEAR OR ABOVE OPTIMAL 130 - 159 mg/dl BORDERLINE HIGH 160 - 189 mg/dl HIGH >190 mg/dl VERY HIGH Performed By: #### C BC #### [facility] [address] [address] [address] Ramsey Sanchez Triglyceride [Mass/Vol] 217 mg/dL Critically high <=150 [facility] Comment on above: Performed By: #### C BC #### [facility] [id number] Ramsey Sanchez VLDL CALC 43.4 mg/dL Normal [facility] Comment on above: Performed By: #### C BC #### [facility] [address] [place], [place] [address] Dr. Ramsey Sanchez LIVER PROFILEon 03-10-2022 Albumin [Mass/Vol] 3.9 g/dL Normal 3.4-5.0 [facility] Comment on above: Performed By: #### C BC #### [facility] [id number] Ramsey Sanchez Albumin/Globulin [Mass ratio] 1.1 {ratio} Normal [facility] Comment on above: Performed By: #### C BC #### [facility] [address] [address] [address] Ramsey Sanchez ALP [Catalytic activity/Vol] 75 U/L Normal 46-116 [facility] Comment on above: Performed By: #### C BC #### [facility] [address] [place] [address] Dr. Ramsey Sanchez ALT [Catalytic activity/Vol] 21 U/L Normal 16-63 [facility] Comment on above: Performed By: #### C BC #### [facility] [address] [address] [address] Ramsey Sanchez AST [Catalytic activity/Vol] 17 U/L Normal 15-37 [facility] Comment on above: Performed By: #### C BC #### [facility] [address] [place] [address] Dr. Ramsey Sanchez BILI, CONJUGATED 0.1 mg/dL Normal 0.0-0.2 [facility] Comment on above: Performed By: #### C BC #### [facility] [address] [place] [address] Dr. Ramsey Sanchez Bilirubin [Mass/Vol] 0.4 mg/dL Normal 0.2-1.0 [facility] Comment on above: Performed By: #### C BC #### [facility] [address] [place] [address] Dr. Ramsey Sanchez Globulin (S) [Mass/Vol] 3.5 g/dL Normal [facility] Comment on above: Performed By: #### C BC #### [facility] [address] [place] [address] Dr. Ramsey Sanchez Protein [Mass/Vol] 7.4 g/dL Normal 6.4-8.2 [facility] Comment on above: Performed By: #### C BC #### [facility] [address] [place] [address] Dr. Ramsey Sanchez MICROALBUMIN, RAND URon 10-2 mALB <1.3 Normal <=30.0 [facility] Comment on above: Performed By: #### M ALBR #### [facility] [address] [place] [address] Dr. Ramsey Sanchez PROF CHEM 8 (BAS METB)on Anion gap [Moles/Vol] 12.6 mmol/L Normal [facility] Comment on above: Performed By: #### C BC #### [facility] [address] [place] [address] Dr. Ramsey Sanchez Calcium [Mass/Vol] 8.9 mg/dL Normal 8.5-10.1 [facility] Comment on above: Performed By: #### C BC #### [facility] [address] [place] [address] Dr. Ramsey Sanchez Chloride [Moles/Vol] 103 mmol/L Normal 98-107 [facility] Comment on above: Performed By: #### C BC #### [facility] [address] [place] [address] Dr. Ramesy Sanchez CO2 [Moles/Vol] 28.5 mmol/L Normal 21.0-32.0 [facility] Comment on above: Performed By: #### C BC #### [facility] [address] [place] [address] Dr. Ramsey Sanchez Creatinine [Mass/Vol] 0.89 mg/dL Normal 0.70-1.30 [facility] Comment on above: Performed By: #### C BC #### [facility] [address] [place] [address] Dr. Ramsey Sanchez EGFR-AF S[place]ORE[place] >60 Normal >=60 [facility] Comment on above: Performed By: #### C BC #### [facility] [address] [place] [address] Dr. Ramsey Sanchez EGFR-NON AF [place] >60 Normal >=60 [facility] Comment on above: Performed By: #### C BC #### [facility] Laboratory [address] [place] [address] Dr. Ramsey Sanchez Glucose [Mass/Vol] 102 mg/dL Normal 74-106 [facility] Comment on above: Performed By: #### C BC #### [facility] [address] [address] [address] Ramsey Sanchez Potassium [Moles/Vol] 4.1 mmol/L Normal 3.5-5.1 [facility] Comment on above: Performed By: #### C BC #### [facility] [address] [address] [address] Ramsey Sanchez Sodium [Moles/Vol] 140 mmol/L Normal 136-145 [facility] Comment on above: Performed By: #### C BC #### [facility] [address] [address] [address] Ramsey Sanchez Urea nitrogen [Mass/Vol] 16.0 mg/dL Normal 7.0-18.0 [facility] Comment on above: Performed By: #### C BC #### [facility] [address] [address] [address] Ramsey Sanchez Urea nitrogen/Creatinine [Mass ratio] 18.0 mg/mg Normal [facility] Comment on above: Performed By: #### C BC #### [facility] [address] [address] [address] Ramsey Sanchez STOOL CULTUREon 03-10-2022 Campylobacter Culture Final report Normal [facility] Comment on above: Performed By: #### C XSTOOL #### [facility] [address] [place] [address] Dr. Ramsey Sanchez E coli Shiga Toxin EIA Negative Normal Negative [facility] Comment on above: Performed By: #### C XSTOOL #### [facility] [address] [address] [address] Ramsey Sanchez Result 1 Comment Normal [facility] Comment on above: Result Comment: No S almonella or Shigella recovered. Performed By: #### C XSTOOL #### [facility] [address] [address] [address] Ramsey Sanchez Result Comment: No C ampylobacter species isolated. Salmonella/Shigella Screen Final report Normal [facility] Comment on above: Performed By: #### C XSTOOL #### [facility] [address] [address] [address] Ramsey Sanchez VITAMIN D 25 OHon 03-10-2022 VIT D 25-OH 40.2 ng/mL Normal [facility] Comment on above: Performed By: #### V ITAD #### [facility] [address] [address] [address] Ramsey Sanchez VIT D RANGES SEE BELOW Normal [facility] Comment on above: Result Comment: <20 ng/mL Vit D deficient 20 - <30 ng/mL Vit D insufficient 30 - 100 ng/mL Vit D sufficient >100 ng/mL Potential Toxicity Performed By: #### V ITAD #### [facility] [address] [address] [address] Ramsey Sanchez POC GLUCOSE LABon 08-31-2019 Glucose [Mass/Vol] 120 mg/dL High 70-100 [facility] Comment on above: Performed By: #### [id number] #### [facility] [address] [place] [address], [place] Glucose [Mass/Vol] 114 mg/dL High 70-100 [facility] Comment on above: Performed By: #### 8 [id number] #### [facility] [address] [place] [address], [place] Glucose [Mass/Vol] 136 mg/dL High 70-100 [facility] Comment on above: Performed By: #### 8 [id number] #### [facility] [address] [place] [address], [place] BASIC METABOLIC PANELon 08-15 Calcium [Mass/Vol] 9.3 mg/dL Normal 8.6-10.3 [facility] Comment on above: Performed By: #### 0 [id number] #### [facility] [address] [place] [address], [place] Chloride [Moles/Vol] 103 mmol/L Normal 98-107 [facility] Comment on above: Performed By: #### 0 [id number] #### [facility] [address] [place] [address], [place] CO2 [Moles/Vol] 27 mmol/L Normal 21-31 [facility] Comment on above: Performed By: #### 0 [id number] #### [facility] [address] [place] [address], [place] Creatinine [Mass/Vol] 1.04 mg/dL Normal 0.70-1.30 [facility] Comment on above: Performed By: #### 0 [id number] #### [facility] [address] [place] [address], [place] GFR/1.73 sq M predicted among blacks MDRD (S/P/Bld) [Vol rate/Area] mL/min/{1.73_m2} Normal >60 [facility] Comment on above: Result Comment: Calc ulation may not be valid for patients over 70 years Performed By: #### 0 [id number] #### [facility] [address] [place] [address], [place] GFR/1.73 sq M predicted among non-blacks MDRD (S/P/Bld) [Vol rate/Area] mL/min/{1.73_m2} Normal >60 [facility] Comment on above: Result Comment: Calc ulation may not be valid for patients over 70 years Performed By: #### 0 [id number] #### [facility] [address] [place] [address], [place] Glucose [Mass/Vol] 128 mg/dL High 70-100 [facility] Comment on above: Performed By: #### 0 0071 #### [facility] [address] [place] [address], [place] Potassium [Moles/Vol] 4.2 mmol/L Normal 3.5-5.1 [facility] Comment on above: Performed By: #### 0 [id number] #### [facility] [address] [place] [address], [place] Sodium [Moles/Vol] 139 mmol/L Normal 136-145 [facility] Comment on above: Performed By: #### 0 [id number] #### [facility] [address] [place] [address], [facility] Urea nitrogen [Mass/Vol] 20 mg/dL Normal 7-25 [facility] Comment on above: Performed By: #### 0 [id number] #### [facility] [address] CBC COMPLETE BLOOD COUNT08-30-2019 Erythrocyte distribution width (RBC) [Ratio] 13.9 % Normal 11.5-15.0 [facility] Comment on above: Performed By: #### 5 [id number] #### [facility] [address] [place] [address], [facility] Hematocrit (Bld) [Volume fraction] 44.9 % Normal 39.0-50.0 [facility] Comment on above: Performed By: #### 5 [id number] #### [facility] [address] Hemoglobin (Bld) [Mass/Vol] 14.5 g/dL Normal 13.0-17.0 [facility] Comment on above: Performed By: #### 5 [id number] #### [facility] [address] [place] [address], [facility] MCH (RBC) [Entitic mass] 30.7 pg Normal 27.0-33.0 [facility] Comment on above: Performed By: #### 5 [id number] #### [facility] [address] [place] [address], [facility] MCHC (RBC) [Mass/Vol] 32.3 g/dL Normal 32.0-35.0 [facility] Comment on above: Performed By: #### 5 [id number] #### [facility] [address] [place] [address], [facility] MCV (RBC) [Entitic vol] 95.1 fL Normal 82.0-98.0 [facility] Comment on above: Performed By: #### 5 [id number] #### [facility] [address] [facility] [place] [address], [facility] Nucleated RBC/100 WBC (Bld) [Ratio] 0 % Normal 0-0 [facility] Comment on above: Performed By: #### 5 [id number] #### [facility] [address] [facility] [place] [address], [facility] PLAT CNT 238 10*3/uL Normal 150-400 [facility] Comment on above: Performed By: #### 5 [id number] #### [facility] [address] [facility] [place] [address], [facility] RBC (Bld) [#/Vol] 4.72 10*6/uL Normal 4.20-5.70 [facility] Comment on above: Performed By: #### 5 [id number] #### [facility] [address] [facility] [place] [address], [facility] WBC (Bld) [#/Vol] 12.83 10*3/uL High 4.00-10.60 [facility] Comment on above: Performed By: #### 5 [id number] #### [facility] [address] Cardiovascular Lab Reporton 08-30-2019 Cardiovascular Lab Report [facility] Patient Name: Sabrina [facility] MR #: [id number] Physician: Margaret Arellano, Department of M.D. Medicine Service Date: 08/30/2019 Division of Birthdate: 1940 Cardiology Room #: [id number] Adult Cardiovascular Services [address] [address] Cardiovascular Laboratory Report FINAL IMPRESSIONS: 1. 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 2. 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 3. 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 4. 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 Arellano in the [place] office in the next 2 to 4 [...] left common femoral artery was obtained. A 6-[place] Islander 11 cm sheath was inserted without difficulty. Limited femoral angiography was performed. Bilateral selective coronary angiography was performed using JL4 and JR4 catheters. After reviewing the images, it was elected to proceed with an interventional procedure. A 6-[place]er XB 3.5 guide catheter was advanced over [...] conclude the procedure. Attempts to deploy a 6-[place]er MynxGrip closure device were unsuccessful. Therefore, manual [...] Arellano M.D. Date Trans: 08/30/2019 05:00 P/mmo [id number] cc: Demetrius Cooper MD [address] [facility] [address] Normal [facility] POC GLUCOSE LABon 08-30-2019 Glucose [Mass/Vol] 172 mg/dL High 70-100 [facility] Comment on above: Performed By: #### [id number] #### [facility] [address] [place] [address], [facility] Glucose [Mass/Vol] 138 mg/dL High 70-100 [facility] Comment on above: Performed By: #### [id number] #### [facility] [address] [place] [address], [facility] Vital Signs Date Time Vital Sign Value Performing Clinician Facility 09-27-2024 13:20-0400 Body height 165.1 cm Veena ItzVinopolis DO Work Phone: [facility] 09-27-2024 13:20-0400 Body mass index (BMI) [Ratio] 24.96 kg/m2 Veena Itzkowitz DO Work Phone: [facility] 09-27-2024 13:20-040 Body weight 68.04 kg Veena Itzkowitz DO Work Phone: [facility] 09-27-2024 13:20-0400 Diastolic blood pressure 62 mm[Hg] Veena Itzkowitz DO Work Phone: [facility] 09-27-2024 13:20-0400 Systolic blood pressure 94 mm[Hg] Veena Itzkowitz DO Work Phone: [facility] 09-20-2024 21:13-0400 Body temperature 97.6 [degF] Demetrius Cooper MD Work Phone: [facility] 09-20-2024 21:13-0400 Diastolic blood pressure 62 mm[Hg] Demetrius Cooper MD Work Phone: [facility] 09-20-2024 21:13-0400 Heart rate 68 /min Demetrius Cooper MD Work Phone: [facility] 09-20-2024 21:13-0400 Respiratory rate 18 /min Demetrius Cooper MD Work Phone: [facility] 09-20-2024 21:13-0400 SaO2% (BldA) [Mass fraction] 96 % Demetrius Cooper MD Work Phone: [facility] 09-20-2024 21:13-0400 Systolic blood pressure 113 mm[Hg] Demetrius Cooper MD Work Phone: [facility] 09-20-2024 15:13-0400 Body height 165.1 cm Demetrius Cooper MD Work Phone: [facility] 09-20-2024 15:13-0400 Body weight 65 kg Demetrius Cooper MD Work Phone: [facility] 09-11-2024 13:07-0400 Body height 165.1 cm Mary Ly MD Work Phone: [facility] 09-11-2024 13:07-0400 Body mass index (BMI) [Ratio] 24.84 kg/m2 Mary Ly MD Work Phone: [facility] 09-11-2024 13:07-0400 Body temperature 96.8 [degF] Mary Ly MD Work Phone: [facility] 09-11-2024 13:07-0400 Body weight 67.72 kg Mary Ly MD Work Phone: [phone] [place] [address] 09-11-2024 10:14-0400 Body height 162.56 cm Demetrius Cooper MD Work Phone: [facility] 09-11-2024 10:14-0400 Body mass index (BMI) [Ratio] 25.7 kg/m2 Demetrius Cooper MD Work Phone: [facility] 09-11-2024 10:14-0400 Body weight 68.03 kg Demetrius Cooper MD Work Phone: [facility] 09-11-2024 10:14-0400 Diastolic blood pressure 74 mm[Hg] Demetrius Cooper MD Work Phone: [facility] 09-11-2024 10:14-0400 Heart rate 76 /min Demetrius Cooper MD Work Phone: [facility] 09-11-2024 10:14-0400 SaO2% (BldA) [Mass fraction] 98 % Demetrius Cooper MD Work Phone: [facility] 09-11-2024 10:14-0400 Systolic blood pressure 113 mm[Hg] Demetrius Cooper MD Work Phone: [facility] 08-23-2024 09:49-0400 Body temperature 97.5 [degF] Demetrius Cooper MD Work Phone: [facility] 08-23-2024 09:49-0400 Body weight 72.12 kg Demetrius Cooper MD Work Phone: [facility] 08-23-2024 09:49-0400 Diastolic blood pressure 94 mm[Hg] Demetrius Cooper MD Work Phone: [facility] 08-23-2024 09:49-0400 Heart rate 94 /min Demetrius Cooper MD Work Phone: [facility] 08-23-2024 09:49-0400 Respiratory rate 20 /min Demetrius Cooper MD Work Phone: [facility] 08-23-2024 09:49-0400 SaO2% (BldA) [Mass fraction] 98 % Demetrius Cooper MD Work Phone: [facility] 08-23-2024 09:49-0400 Systolic blood pressure 114 mm[Hg] Demetrius Cooper MD Work Phone: [facility] 08-21-2024 12:53-0400 Body height 167.64 cm Demetrius Cooper MD Work Phone: [facility] 08-21-2024 11:36-0400 Body temperature 98 [degF] Demetrius Cooper MD Work Phone: [facility] 08-21-2024 11:36-0400 Diastolic blood pressure 57 mm[Hg] Demetrius Cooper MD Work Phone: [facility] 08-21-2024 11:36-0400 Heart rate 76 /min Demetrius Cooper MD Work Phone: [facility] 08-21-2024 11:36-0400 Respiratory rate 18 /min Demetrius Cooper MD Work Phone: [facility] 08-21-2024 11:36-0400 SaO2% (BldA) [Mass fraction] 96 % Demetrius Cooper MD Work Phone: [facility] 08-21-2024 11:36-0400 Systolic blood pressure 122 mm[Hg] Demetrius Cooper MD Work Phone: [facility] 08-21-2024 04:13-0400 Body weight 70.9 kg Demetrius Cooper MD Work Phone: [facility] 08-20-2024 19:00-0400 Diastolic blood pressure 54 mm[Hg] Demetrius Cooper MD Work Phone: [facility] 08-20-2024 19:00-0400 Heart rate 61 /min Demetrius Cooper MD Work Phone: [facility] 08-20-2024 19:00-0400 Respiratory rate 18 /min Demetrius Cooper MD Work Phone: [facility] 08-20-2024 19:00-0400 SaO2% (BldA) [Mass fraction] 92 % Demetrius Cooper MD Work Phone: [facility] 08-20-2024 19:00-0400 Systolic blood pressure 104 mm[Hg] Demetrius Cooper MD Work Phone: [facility] 08-20-2024 18:04-0400 Body temperature 98.1 [degF] Demetrius Cooper MD Work Phone: [facility] 08-20-2024 16:57-0400 Body height 162.56 cm Demetrius Cooper MD Work Phone: [facility] 08-20-2024 16:57-0400 Body weight 71.6 kg Demetrius Cooper MD Work Phone: [facility] 08-17-2024 08:23-0400 Body height 167.64 cm Demetrius Cooper MD Work Phone: [facility] 08-17-2024 08:23-0400 Body temperature 97.3 [degF] Demetrius Cooper MD Work Phone: [facility] 08-17-2024 08:23-0400 Body weight 72.25 kg Demetrius Cooper MD Work Phone: [facility] 08-17-2024 08:23-0400 Diastolic blood pressure 71 mm[Hg] Demetrius Cooper MD Work Phone: [facility] 08-17-2024 08:23-0400 Heart rate 90 /min Demetrius Cooper MD Work Phone: [facility] 08-17-2024 08:23-0400 Respiratory rate 18 /min Demetrius Cooper MD Work Phone: [facility] 08-17-2024 08:23-0400 SaO2% (BldA) [Mass fraction] 95 % Demetrius Cooper MD Work Phone: [facility] 08-17-2024 08:23-0400 Systolic blood pressure 151 mm[Hg] Demetrius Cooper MD Work Phone: [facility] 08-16-2024 09:18-0400 Body weight 72.4 kg Demetrius Cooper MD Work Phone: [facility] 08-10-2024 15:40-0400 Body height 167.64 cm Demetrius Cooper MD Work Phone: [facility] 08-10-2024 08:25-0400 Body temperature 97.8 [degF] Demetrius Cooper MD Work Phone: [facility] 08-10-2024 08:25-0400 Diastolic blood pressure 65 mm[Hg] Demetrius Cooper MD Work Phone: [facility] 08-10-2024 08:25-0400 Heart rate 68 /min Demetrius Cooper MD Work Phone: [facility] 08-10-2024 08:25-0400 Respiratory rate 18 /min Demetrius Cooper MD Work Phone: [facility] 08-10-2024 08:25-0400 SaO2% (BldA) [Mass fraction] 94 % Demetrius Cooper MD Work Phone: [facility] 08-10-2024 08:25-0400 Systolic blood pressure 121 mm[Hg] Demetrius Cooper MD Work Phone: [facility] 08-09-2024 09:28-0400 Body weight 73.1 kg Demetrius Cooper MD Work Phone: [facility] 08-09-2024 09:16-0400 Body weight 73.1 kg Demetrius Cooper MD Work Phone: [facility] 08-09-2024 09:16-0400 Diastolic blood pressure 69 mm[Hg] Demetrius Cooper MD Work Phone: [facility] 08-09-2024 09:16-0400 Heart rate 77 /min Demetrius Cooper MD Work Phone: [facility] 08-09-2024 09:16-0400 Respiratory rate 18 /min Demetrius Cooper MD Work Phone: [facility] 08-09-2024 09:16-0400 SaO2% (BldA) [Mass fraction] 97 % Demetrius Cooper MD Work Phone: [facility] 08-09-2024 09:16-0400 Systolic blood pressure 110 mm[Hg] Demetrius Cooper MD Work Phone: [facility] 08-03-2024 09:58-0400 Body height 167.64 cm Demetrius Cooper MD Work Phone: [facility] 08-03-2024 08:27-0400 Body temperature 97.9 [degF] Demetrius Cooper MD Work Phone: [facility] 08-03-2024 08:27-0400 Diastolic blood pressure 74 mm[Hg] Demetrius Cooper MD Work Phone: [facility] 08-03-2024 08:27-0400 Heart rate 85 /min Demetrius Cooper MD Work Phone: [facility] 08-03-2024 08:27-0400 Respiratory rate 18 /min Demetrius Cooper MD Work Phone: [facility] 08-03-2024 08:27-0400 SaO2% (BldA) [Mass fraction] 95 % Demetrius Cooper MD Work Phone: [facility] 08-03-2024 08:27-0400 Systolic blood pressure 133 mm[Hg] Demetrius Cooper MD Work Phone: [facility] 07-28-2024 16:29-0400 Body height 167.64 cm Demetrius Cooper MD Work Phone: [facility] 07-27-2024 08:28-0400 Body temperature 98.1 [degF] Demetrius Cooper MD Work Phone: [facility] 07-27-2024 08:28-0400 Body weight 74.2 kg Demetrius Cooper MD Work Phone: [facility] 07-27-2024 08:28-0400 Diastolic blood pressure 79 mm[Hg] Demetrius Cooper MD Work Phone: [facility] 07-27-2024 08:28-0400 Heart rate 62 /min Demetrius Cooper MD Work Phone: [facility] 07-27-2024 08:28-0400 Respiratory rate 18 /min Demetrius Cooper MD Work Phone: [facility] 07-27-2024 08:28-0400 SaO2% (BldA) [Mass fraction] 95 % Demetrius Cooper MD Work Phone: [facility] 07-27-2024 08:28-0400 Systolic blood pressure 126 mm[Hg] Demetrius Cooper MD Work Phone: [facility] 07-26-2024 08:23-0400 Body temperature 97.6 [degF] Demetrius Cooper MD Work Phone: [facility] 07-26-2024 08:23-0400 Body weight 73.48 kg Demetrius Cooper MD Work Phone: [facility] 07-26-2024 08:23-0400 Diastolic blood pressure 72 mm[Hg] Demetrius Cooper MD Work Phone: [facility] 07-26-2024 08:23-0400 Heart rate 64 /min Demetrius Cooper MD Work Phone: [facility] 07-26-2024 08:23-0400 Respiratory rate 20 /min Demetrius Cooper MD Work Phone: [facility] 07-26-2024 08:23-0400 SaO2% (BldA) [Mass fraction] 96 % Demetrius Cooper MD Work Phone: [facility] 07-26-2024 08:23-0400 Systolic blood pressure 120 mm[Hg] Demetrius Cooper MD Work Phone: [facility] 07-20-2024 10:18-0500 Body weight 75.38 kg Demetrius Cooper MD Work Phone: [facility] 07-20-2024 08:46-0500 Body temperature 97.8 [degF] Demetrius Cooper MD Work Phone: [facility] 07-20-2024 08:46-0500 Body weight 74.84 kg Demetrius Cooper MD Work Phone: [facility] 07-20-2024 08:46-0500 Diastolic blood pressure 70 mm[Hg] Demetrius Cooper MD Work Phone: [facility] 07-20-2024 08:46-0500 Heart rate 68 /min Demetrius Cooper MD Work Phone: [facility] 07-20-2024 08:46-0500 Respiratory rate 20 /min Demetrius Cooper MD Work Phone: [facility] 07-20-2024 08:46-0500 SaO2% (BldA) [Mass fraction] 97 % Demetrius Cooper MD Work Phone: [facility] 07-20-2024 08:46-0500 Systolic blood pressure 137 mm[Hg] Demetrius Cooper MD Work Phone: [facility] 07-18-2024 08:50-0500 Body height 167.64 cm Demetrius Cooper MD Work Phone: [facility] 07-17-2024 14:33-0500 Diastolic blood pressure 73 mm[Hg] Demetrius Cooper MD Work Phone: [facility] 07-17-2024 14:33-0500 Heart rate 59 /min Demetrius Cooper MD Work Phone: [facility] 07-17-2024 14:33-0500 Respiratory rate 16 /min Demetrius Cooper MD Work Phone: [facility] 07-17-2024 14:33-0500 SaO2% (BldA) [Mass fraction] 96 % Demetrius Cooper MD Work Phone: [facility] 07-17-2024 14:33-0500 Systolic blood pressure 158 mm[Hg] Demetrius Cooper MD Work Phone: [facility] 07-17-2024 13:48-0500 Body temperature 97.3 [degF] Demetrius Cooper MD Work Phone: [facility] 07-17-2024 10:40-0500 Body height 165.1 cm Demetrius Cooper MD Work Phone: [facility] 07-17-2024 10:40-0500 Body weight 77.11 kg Demetrius Cooper MD Work Phone: [facility] 07-13-2024 16:08-0500 Body height 167.64 cm Demetrius Cooper MD Work Phone: [facility] 07-13-2024 08:37-0500 Body temperature 97.8 [degF] Demetrius Cooper MD Work Phone: [facility] 07-13-2024 08:37-0500 Body weight 77.01 kg Demetrius Cooper MD Work Phone: [facility] 07-13-2024 08:37-0500 Diastolic blood pressure 71 mm[Hg] Demetrius Cooper MD Work Phone: [facility] 07-13-2024 08:37-0500 Heart rate 64 /min Demetrius Cooper MD Work Phone: [facility] 07-13-2024 08:37-0500 Respiratory rate 18 /min Demetrius Cooper MD Work Phone: [facility] 07-13-2024 08:37-0500 SaO2% (BldA) [Mass fraction] 95 % Demetrius Cooper MD Work Phone: [facility] 07-13-2024 08:37-0500 Systolic blood pressure 127 mm[Hg] Demetrius Cooper MD Work Phone: [facility] 07-12-2024 08:41-0500 Body temperature 97.3 [degF] Demetrius Cooper MD Work Phone: [facility] 07-12-2024 08:41-0500 Body weight 76.65 kg Demetrius Cooper MD Work Phone: [facility] 07-12-2024 08:41-0500 Diastolic blood pressure 60 mm[Hg] Demetrius Cooper MD Work Phone: [facility] 07-12-2024 08:41-0500 Heart rate 61 /min Demetrius Cooper MD Work Phone: [facility] 07-12-2024 08:41-0500 Respiratory rate 20 /min Demetrius Cooper MD Work Phone: [facility] 07-12-2024 08:41-0500 SaO2% (BldA) [Mass fraction] 96 % Demetrius Cooper MD Work Phone: [facility] 07-12-2024 08:41-0500 Systolic blood pressure 106 mm[Hg] Demetrius Cooper MD Work Phone: [facility] 07-06-2024 11:06-0500 Body height 167.64 cm Demetrius Cooper MD Work Phone: [facility] 07-06-2024 08:36-0500 Body temperature 97.6 [degF] Demetrius Cooper MD Work Phone: [facility] 07-06-2024 08:36-0500 Body weight 77.83 kg Demetrius Cooper MD Work Phone: [facility] 07-06-2024 08:36-0500 Diastolic blood pressure 71 mm[Hg] Demetrius Cooper MD Work Phone: [facility] 07-06-2024 08:36-0500 Heart rate 63 /min Demetrius Cooper MD Work Phone: [facility] 07-06-2024 08:36-0500 Respiratory rate 18 /min Demetrius Cooper MD Work Phone: [facility] 07-06-2024 08:36-0500 SaO2% (BldA) [Mass fraction] 95 % Demetrius Cooper MD Work Phone: [facility] 07-06-2024 08:36-0500 Systolic blood pressure 122 mm[Hg] Demetrius Cooper MD Work Phone: [facility] 06-22-2024 14:58-0500 Body height 162.56 cm Demetrius Cooper MD Work Phone: [facility] 06-22-2024 14:58-0500 Body temperature 97.5 [degF] Demetrius Cooper MD Work Phone: [facility] 06-22-2024 14:58-0500 Body weight 78 kg Demetrius Cooper MD Work Phone: [facility] 06-22-2024 14:58-0500 Diastolic blood pressure 72 mm[Hg] Demetrius Cooper MD Work Phone: [facility] 06-22-2024 14:58-0500 Heart rate 50 /min Demetrius Cooper MD Work Phone: [facility] 06-22-2024 14:58-0500 Respiratory rate 20 /min Demetrius Cooper MD Work Phone: [facility] 06-22-2024 14:58-0500 SaO2% (BldA) [Mass fraction] 95 % Demetrius Cooper MD Work Phone: [facility] 06-22-2024 14:58-0500 Systolic blood pressure 149 mm[Hg] Demetrius Cooper MD Work Phone: [facility] 06-20-2024 14:38-0500 Body height 160 cm Matteo Bell MD Work Phone: [facility] 06-20-2024 14:38-0500 Body mass index (BMI) [Ratio] 30.11 kg/m2 Matteo Bell MD Work Phone: [facility] 06-20-2024 14:38-0500 Body weight 77.11 kg Matteo Bell MD Work Phone: [facility] 06-20-2024 14:38-0500 Diastolic blood pressure 74 mm[Hg] Matteo Bell MD Work Phone: [facility] 06-20-2024 14:38-0500 Systolic blood pressure 120 mm[Hg] Matteo Bell MD Work Phone: [facility] 06-14-2024 10:45-0500 Body height 167.64 cm Demetrius Cooper MD Work Phone: [facility] 06-14-2024 10:45-0500 Body mass index (BMI) [Ratio] 27.6 kg/m2 Demetrius Cooper MD Work Phone: [facility] 06-14-2024 10:45-0500 Body temperature 97.6 [degF] Demetrius Cooper MD Work Phone: [facility] 06-14-2024 10:45-0500 Body weight 77.56 kg Demetrius Cooper MD Work Phone: [facility] 06-14-2024 10:45-0500 Diastolic blood pressure 67 mm[Hg] Demetrius Cooper MD Work Phone: [facility] 06-14-2024 10:45-0500 Heart rate 69 /min Demetrius Cooper MD Work Phone: [facility] 06-14-2024 10:45-0500 Respiratory rate 20 /min Demetrius Cooper MD Work Phone: [facility] 06-14-2024 10:45-0500 Systolic blood pressure 103 mm[Hg] Demetrius Cooper MD Work Phone: [facility] 06-14-2024 09:53-0500 Body height 167.64 cm Demetrius Cooper MD Work Phone: [facility] 06-14-2024 09:53-0500 Body mass index (BMI) [Ratio] 27.6 kg/m2 Demetrius Cooper MD Work Phone: [facility] 06-14-2024 09:53-0500 Body temperature 97.6 [degF] Demetrius Cooper MD Work Phone: [facility] 06-14-2024 09:53-0500 Body weight 77.56 kg Demetrius Cooper MD Work Phone: [facility] 06-14-2024 09:53-0500 Diastolic blood pressure 67 mm[Hg] Demetrius Cooper MD Work Phone: [facility] 06-14-2024 09:53-0500 Heart rate 69 /min Demetrius Cooper MD Work Phone: [facility] 06-14-2024 09:53-0500 Respiratory rate 20 /min Demetrius Cooper MD Work Phone: [facility] 06-14-2024 09:53-0500 SaO2% (BldA) [Mass fraction] 96 % Demetrius Cooper MD Work Phone: [facility] 06-14-2024 09:53-0500 Systolic blood pressure 103 mm[Hg] Demetrius Cooper MD Work Phone: [facility] 06-05-2024 14:13-0500 Diastolic blood pressure 96 mm[Hg] [address] 06-05-2024 14:13-0500 Heart rate 65 /min [address] 06-05-2024 14:13-0500 Respiratory rate 16 /min [address] 06-05-2024 14:13-0500 SaO2% (BldA) [Mass fraction] 96 % [address] 06-05-2024 14:13-0500 Systolic blood pressure 147 mm[Hg] [address] 06-05-2024 12:22-0500 Body temperature 97.2 [degF] [address] 05-30-2024 11:16-0500 Body height 162.6 cm Mary Ly MD Work Phone: [facility] 05-30-2024 11:16-0500 Body mass index (BMI) [Ratio] 28.89 kg/m2 Mary Ly MD Work Phone: [facility] 05-30-2024 11:16-0500 Body temperature 98.2 [degF] Mary Ly MD Work Phone: [facility] 05-30-2024 11:16-0500 Body weight 76.34 kg Mary Ly MD Work Phone: [facility] 05-11-2024 10:00-0500 Body temperature 97.7 [degF] Mary Ly MD Work Phone: [facility] 05-11-2024 10:00-0500 Diastolic blood pressure 72 mm[Hg] Mary Ly MD Work Phone: [facility] 05-11-2024 10:00-0500 Heart rate 61 /min Mary Ly MD Work Phone: [facility] 05-11-2024 10:00-0500 Respiratory rate 14 /min Mary Ly MD Work Phone: [facility] 05-11-2024 10:00-0500 SaO2% (BldA) [Mass fraction] 95 % Mary Ly MD Work Phone: [facility] 05-11-2024 10:00-0500 Systolic blood pressure 140 mm[Hg] Mary Ly MD Work Phone: [facility] 05-11-2024 06:08-0500 Body height 162.6 cm Mary Ly MD Work Phone: [facility] 05-11-2024 06:08-0500 Body mass index (BMI) [Ratio] 29.52 kg/m2 Mary Ly MD Work Phone: [facility] 05-11-2024 06:08-0500 Body weight 78 kg Mary Ly MD Work Phone: [facility] 04-07-2024 10:40-0500 Body height 162.6 cm Mary Ly MD Work Phone: [facility] 04-07-2024 10:40-0500 Body mass index (BMI) [Ratio] 29.18 kg/m2 Mary Ly MD Work Phone: [facility] 04-07-2024 10:40-0500 Body weight 77.11 kg Mary Ly MD Work Phone: [facility] 03-29-2024 10:06-0500 Body height 162.6 cm Luc Ham MD Work Phone: [facility] 03-29-2024 10:06-0500 Body mass index (BMI) [Ratio] 29.7 kg/m2 Luc Ham MD Work Phone: [facility] 03-29-2024 10:06-0500 Body weight 78.47 kg Luc Ham MD Work Phone: [facility] 03-29-2024 10:06-0500 Diastolic blood pressure 70 mm[Hg] Luc Ham MD Work Phone: [facility] 03-29-2024 10:06-0500 Systolic blood pressure 138 mm[Hg] Luc Ham MD Work Phone: [facility] 03-23-2024 14:06-0500 Blood Pressure Location Wiley Sarmini [facility] 03-23-2024 14:06-0500 Diastolic blood pressure 74 mm[Hg] Wiley Sarmini [facility] 03-23-2024 14:06-0500 Heart rate 71 /min Wiley Sarmini [facility] 03-23-2024 14:06-0500 Respiratory rate 16 /min Wiley Sarmini [facility] 03-23-2024 14:06-0500 Systolic blood pressure 117 mm[Hg] Inez Henderson [facility] 03-08-2024 09:25-0400 Body height 162.6 cm Luc Ham MD Work Phone: [facility] 03-08-2024 09:25-0400 Body mass index (BMI) [Ratio] 29.87 kg/m2 Luc Ham MD Work Phone: [facility] 03-08-2024 09:25-0400 Body weight 78.93 kg Luc Ham MD Work Phone: [facility] 03-08-2024 09:25-0400 Diastolic blood pressure 66 mm[Hg] Luc Ham MD Work Phone: [facility] 03-08-2024 09:25-0400 Systolic blood pressure 124 mm[Hg] Luc Ham MD Work Phone: [facility] 02-16-2024 14:19-0400 Body height 162.6 cm Luc Ham MD Work Phone: [facility] 02-16-2024 14:19-0400 Body mass index (BMI) [Ratio] 29.87 kg/m2 Luc Ham MD Work Phone: [facility] 02-16-2024 14:19-0400 Body weight 78.93 kg Luc Ham MD Work Phone: [facility] 02-16-2024 14:19-0400 Diastolic blood pressure 74 mm[Hg] Luc Ham MD Work Phone: [facility] 02-16-2024 14:19-0400 Systolic blood pressure 129 mm[Hg] Luc Ham MD Work Phone: [facility] 02-16-2024 08:59-0400 Body height 162.6 cm Missy PEMBERTON Work Phone: [facility] 02-16-2024 08:59-0400 Body mass index (BMI) [Ratio] 29.7 kg/m2 Missy Lowe PA Work Phone: [facility] 02-16-2024 08:59-0400 Body weight 78.47 kg Missy Lowe PA Work Phone: [facility] 02-16-2024 08:59-0400 Diastolic blood pressure 78 mm[Hg] Missy Lowe PA Work Phone: [facility] 02-16-2024 08:59-0400 Systolic blood pressure 118 mm[Hg] Missy Lowe PA Work Phone: [facility] 02-01-2024 13:07-0400 Body height 162.6 cm Luc Ham MD Work Phone: [facility] 02-01-2024 13:07-0400 Body mass index (BMI) [Ratio] 29.52 kg/m2 Luc aHm MD Work Phone: [facility] 02-01-2024 13:07-0400 Body weight 78.02 kg Luc Ham MD Work Phone: [facility] 02-01-2024 13:07-0400 Diastolic blood pressure 71 mm[Hg] Luc aHm MD Work Phone: [facility] 02-01-2024 13:07-0400 Systolic blood pressure 101 mm[Hg] Luc Ham MD Work Phone: [facility] 10-21-2023 14:32-0400 Blood Pressure Location Wiley Sarmini [facility] 10-21-2023 14:32-0400 Diastolic blood pressure 64 mm[Hg] Wiley Sarmini [facility] 10-21-2023 14:32-0400 Heart rate 73 /min Wiley Sarmini [facility] 10-21-2023 14:32-0400 Respiratory rate 18 /min Wiley Sarmini [facility] 10-21-2023 14:32-0400 Systolic blood pressure 130 mm[Hg] Inez Henderson [facility] 09-17-2023 08:58-0400 Blood Pressure Location Anjali Ruby [facility] 09-17-2023 08:58-0400 Body temperature 97.34 [degF] Anjali Staffordmetz [facility] 09-17-2023 08:58-0400 Diastolic blood pressure 66 mm[Hg] Anjali Staffordmetz [facility] 09-17-2023 08:58-0400 Heart rate 66 /min Anjali Ruby [facility] 09-17-2023 08:58-0400 Systolic blood pressure 123 mm[Hg] Anjali Staffordmetz [facility] 09-02-2023 13:28-0400 Body height 167.64 cm [facility] 09-02-2023 13:28-0400 Body mass index (BMI) [Ratio] 28 kg/m2 [facility] 09-02-2023 13:28-0400 Body weight 78.69 kg [facility] 09-02-2023 13:28-0400 Diastolic blood pressure 61 mm[Hg] [facility] 09-02-2023 13:28-0400 Heart rate 67 /min [facility] 09-02-2023 13:28-0400 SaO2% (BldA) [Mass fraction] 95 % [facility] 09-02-2023 13:28-0400 Systolic blood pressure 113 mm[Hg] [facility] 07-27-2023 10:23-0400 Body height 167.64 cm [facility] 07-27-2023 10:23-0400 Body mass index (BMI) [Ratio] 27.5 kg/m2 [facility] 07-27-2023 10:23-0400 Body temperature 97.9 [degF] [facility] 07-27-2023 10:23-0400 Body weight 77.28 kg [facility] 07-27-2023 10:23-0400 Diastolic blood pressure 66 mm[Hg] [facility] 07-27-2023 10:23-0400 Heart rate 86 /min [facility] 07-27-2023 10:23-0400 Respiratory rate 18 /min [facility] 07-27-2023 10:23-0400 SaO2% (BldA) [Mass fraction] 97 % [facility] 07-27-2023 10:23-0400 Systolic blood pressure 121 mm[Hg] [facility] 05-31-2023 13:30-0500 Body height 167.64 cm Gisele Brunson Other [employer] [facility] [employer] Other 05-31-2023 13:30-0500 Body mass index (BMI) [Ratio] 27.6 kg/m2 Gisele Brunson Other [employer] Other 05-31-2023 13:30-0500 Body weight 77.57 kg Gisele Brunson Other [employer] Other 05-31-2023 13:30-0500 Diastolic blood pressure 55 mm[Hg] Gisele Brunson Other [employer] Other 05-31-2023 13:30-0500 SaO2% (BldA) [Mass fraction] 94 % Gisele Brunson Other [employer] Other 05-31-2023 13:30-0500 Systolic blood pressure 104 mm[Hg] Gisele Brunson Other [employer] Other 05-25-2023 12:21-0500 Blood Pressure Location Anjali Ruby [facility] 05-25-2023 12:21-0500 Diastolic blood pressure 65 mm[Hg] Anjali Ruby [facility] 05-25-2023 12:21-0500 Heart rate 88 /min Anjali Ruby [facility] 05-25-2023 12:21-0500 Respiratory rate 16 /min Anjali Ruby [facility] 05-25-2023 12:21-0500 Systolic blood pressure 113 mm[Hg] Anjali Ruby [facility] 04-01-2023 13:15-0500 Body temperature 97.11 [degF] Vaishali Pringle MD Work Phone: [facility] 04-01-2023 13:15-0500 Body weight 75.75 kg Vaishali Pringle MD Work Phone: [facility] 04-01-2023 13:15-0500 Diastolic blood pressure 66 mm[Hg] Vaishali Pringle MD Work Phone: [facility] 04-01-2023 13:15-0500 Heart rate 70 /min Vaishali Pringle MD Work Phone: [facility] 04-01-2023 13:15-0500 SaO2% (BldA) [Mass fraction] 97 % Vaishali Pringle MD Work Phone: [facility] 04-01-2023 13:15-0500 Systolic blood pressure 109 mm[Hg] Vaishali Pringle MD Work Phone: [facility] 03-10-2023 08:53-0400 Blood Pressure Location Anjali Ruby [facility] 03-10-2023 08:53-0400 Body temperature 97.16 [degF] Anjali Flori [facility] 03-10-2023 08:53-0400 Diastolic blood pressure 72 mm[Hg] Anjali Flori [facility] 03-10-2023 08:53-0400 Heart rate 63 /min Anjali Flori [facility] 03-10-2023 08:53-0400 Systolic blood pressure 117 mm[Hg] Anjali Flori [facility] 02-25-2023 13:27-0400 Blood Pressure Location Anjali Flori [facility] 02-25-2023 13:27-0400 Body temperature 98.06 [degF] Anjali Flori [facility] 02-25-2023 13:27-0400 Diastolic blood pressure 75 mm[Hg] Anjali Flori [facility] 02-25-2023 13:27-0400 Heart rate 85 /min Anjali Flori [facility] 02-25-2023 13:27-0400 Respiratory rate 16 /min Anjalijane StaffordFlori [facility] 02-25-2023 13:27-0400 Systolic blood pressure 122 mm[Hg] Anjali Flori [facility] 01-29-2023 10:15-0400 Body height 167.64 cm Gisele Brunson Other [employer] Other 01-29-2023 10:15-0400 Body mass index (BMI) [Ratio] 28.24 kg/m2 Gisele Brunson Other [employer] Other 01-29-2023 10:15-0400 Body weight 79.38 kg Gisele Brunson Other [employer] Other 01-29-2023 10:15-0400 Diastolic blood pressure 75 mm[Hg] Gisele Brunson Other [employer] Other 01-29-2023 10:15-0400 SaO2% (BldA) [Mass fraction] 95 % Gisele Brunson Other [employer] Other 01-29-2023 10:15-0400 Systolic blood pressure 118 mm[Hg] Gisele Brunson Other [employer] Other 01-12-2023 09:22-0400 Blood Pressure Location Anjali Flori [facility] 01-12-2023 09:22-0400 Body temperature 96.98 [degF] Anjali Flori [facility] 01-12-2023 09:22-0400 Diastolic blood pressure 68 mm[Hg] Anjali Flori [facility] 01-12-2023 09:22-0400 Heart rate 69 /min Anjali Flori [facility] 01-12-2023 09:22-0400 Systolic blood pressure 109 mm[Hg] Anjali Flori [facility] 10-13-2022 09:45-0400 Body height 167.64 cm Gsiele Brunson Other [employer] Other 10-13-2022 09:45-0400 Body mass index (BMI) [Ratio] 27.92 kg/m2 Gisele Brunson Other [employer] Other 10-13-2022 09:45-0400 Body weight 78.47 kg Gisele Brunson Other [employer] Other 10-13-2022 09:45-0400 Diastolic blood pressure 70 mm[Hg] Gisele Brunson Other [employer] Other 10-13-2022 09:45-0400 SaO2% (BldA) [Mass fraction] 95 % Gisele Brunson Other [employer] Other 10-13-2022 09:45-0400 Systolic blood pressure 116 mm[Hg] Gisele Brunson Other [employer] Other 09-22-2022 18:14-0400 Body temperature 99.86 [degF] Gordy Sánchez [facility] 09-22-2022 16:28-0400 Body temperature 101.3 [degF] Gordy Sánchez [facility] 09-22-2022 16:28-0400 Diastolic blood pressure 61 mm[Hg] Gordy Romane [facility] 09-22-2022 16:28-0400 Heart rate 79 /min Gordy Romane [facility] 09-22-2022 16:28-0400 Respiratory rate 17 /min Gordy Romane [facility] 09-22-2022 16:28-0400 SaO2% (BldA) [Mass fraction] 93 % Gordy Romane [facility] 09-22-2022 16:28-0400 Systolic blood pressure 111 mm[Hg] Gordy Romane [facility] 09-22-2022 14:10-0400 Body height 167.64 cm Griselda Pennington Other [employer] Other 09-22-2022 14:10-0400 Body mass index (BMI) [Ratio] 29.7 kg/m2 Griselda Pennington Other [employer] Other 09-22-2022 14:10-0400 Body temperature 100 [degF] Griselda Pennington Other [employer] Other 09-22-2022 14:10-0400 Body weight 83.46 kg Griselda Pennington Other [employer] Other 09-22-2022 14:10-0400 Respiratory rate 18 /min Griselda Pennington Other [employer] Other 09-22-2022 14:10-0400 SaO2% (BldA) [Mass fraction] 93 % Griselda Pennington Other [employer] Other 07-29-2022 10:15-0400 Body height 167.64 cm Erwin Salazar Other [employer] Other 07-29-2022 10:15-0400 Body mass index (BMI) [Ratio] 30.02 kg/m2 Erwin Salazar Other [employer] Other 07-29-2022 10:15-0400 Body weight 84.37 kg Erwin Salazar Other [employer] Other 07-29-2022 10:15-0400 Diastolic blood pressure 65 mm[Hg] Erwin Salazar Other [employer] Other 07-29-2022 10:15-0400 SaO2% (BldA) [Mass fraction] 94 % Erwin Salazar Other [employer] Other 07-29-2022 10:15-0400 Systolic blood pressure 102 mm[Hg] Erwin Salazar Other [employer] Other 11-29-2021 10:25-0400 Body height 167.64 cm Leti Eatonault Other [employer] Other 11-29-2021 10:25-0400 Body temperature 96.9 [degF] Leti Eatonault Other [employer] Other 11-29-2021 10:25-0400 Respiratory rate 18 /min Leti Jose Other [employer] Other 11-29-2021 10:25-0400 SaO2% (BldA) [Mass fraction] 93 % Leti Eatonault Other [employer] Other Encounters Encounter Date Encounter Type Care Provider Facility Start: 11-21-2024 ambulatory MD Demetrius Cooper [facility] Start: 10-12-2024 ambulatory MD Demetrius Cooper [facility]il [facility] [place] Start: 09-28-2024 End: 09-28-2024 ambulatory MD Demetrius Cooper Facility:[facility] [place] Start: 09-28-2024 End: 09-28-2024 Bamboo flowsheet Missy Lowe PA Work Phone: [facility] Start: 09-28-2024 End: 09-28-2024 Bamboo flowsheet Missy Lowe PA Work Phone: [facility] Start: 09-28-2024 End: 09-28-2024 ambulatory MISSY LOWE Not Available Start: 09-27-2024 End: 09-27-2024 Office outpatient new 45 minutes Veena Jane Itzjackie DO Work Phone: [facility] Comment on above: Esophageal dysphagia (Primary Dx) Start: 09-27-2024 End: 09-27-2024 ambulatory VEENA Jane ITZJACKIE Not Available Start: 09-25-2024 ambulatory Demetrius Cooper Facility: [facility] Start: 09-20-2024 End: 09-20-2024 Emergency department patient visit Demetrius Cooper MD Work Phone: 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 Acute Work Phone: Start: 09-07-2024 End: 09-07-2024 Patient encounter procedure Demetrius Cooper MD Work Phone: [facility] Ambulatory Work Phone: Start: 09-04-2024 End: 09-04-2024 ambulatory [facility] Start: 08-30-2024 End: 08-30-2024 Lab Drop off Demetrius Cooper [facility] Start: 08-30-2024 End: 08-30-2024 ambulatory Demetrius Cooper Facility:[facility] Start: 08-24-2024 End: 08-24-2024 ambulatory Demetrius Cooper Facility:[facility] Start: 08-23-2024 End: 08-23-2024 Patient encounter procedure Demetrius Cooper MD Work Phone: [facility] Ambulatory Work Phone: Start: 08-22-2024 End: 09-25-2024 ambulatory Demetrius Cooper Facility:[id number] Start: 08-21-2024 Non-patient / Non-visit Demetrius Cooper MD Work Phone: [facility] Ambulatory Work Phone: Start: 08-21-2024 Non-patient / Non-visit Demetrius Cooper MD Work Phone: [facility] Infect Dis Work Phone: Start: 08-21-2024 ambulatory Demetrius Cooper Facility: [facility] Start: 08-20-2024 End: 08-21-2024 Evaluation and management of inpatient Demetrius Cooper MD Work Phone: [facility] [place] [facility] Work Phone: Start: 08-18-2024 Registered Recurring Demetrius gardiner MD Work Phone: [facility] Acute Work Phone: Start: 08-17-2024 Non-patient / Non-visit Demetrius Cooper MD Work Phone: [facility] Ambulatory Work Phone: Start: 08-17-2024 ambulatory Demetrius Cooper Facility: [facility] Start: 08-17-2024 Registered Recurring [facility]ri[facility]iner [facility] Start: 08-16-2024 Non-patient / Non-visit Demetrius Cooper MD Work Phone: [facility] Palliative Work Phone: Start: 08-16-2024 Registered Recurring Demetrius gardiner MD [facility] Work Phone: Start: 08-16-2024 End: 08-16-2024 Patient encounter procedure Demetrius Cooper MD Work Phone: [facility] Care Start: 08-16-2024 End: 08-16-2024 ambulatory Demetrius Cooper MD Work Phone: [facility] Work Phone: Start: 08-14-2024 Non-patient / Non-visit Demetrius Cooper MD Work Phone: [facility] Start: 08-10-2024 Non-patient / Non-visit Demetrius Cooper MD Work Phone: [facility] Ambulatory Work Phone: Start: 08-10-2024 Registered Recurring Demetrius gardiner MD Work Phone: [facility] Start: 08-09-2024 End: 08-09-2024 Patient encounter procedure Demetrius Cooper MD Work Phone: [facility] Ambulatory Work Phone: Start: 08-09-2024 Non-patient / Non-visit Demetrius Cooper MD Work Phone: [facility] Palliative Work Phone: Start: 08-09-2024 End: 08-09-2024 Patient encounter procedure Demetrius Cooper MD Work Phone: [facility] Start: 08-09-2024 End: 08-09-2024 ambulatory Demetrius Cooper MD Work Phone: [facility] Work Phone: Start: 08-07-2024 Non-patient / Non-visit Demetrius Cooper MD Work Phone: [facility] Ambulatory Work Phone: Start: 08-03-2024 Registered Recurring Demetrius gardiner MD [facility] Start: 08-03-2024 Non-patient / Non-visit Demetrius Cooper MD Work Phone: [facility] Ambulatory Work Phone: Start: 08-02-2024 Non-patient / Non-visit [facility]rius Cooper [facility] Start: 08-02-2024 End: 08-02-2024 Patient encounter procedure Demetrius Cooper MD Work Phone: [facility] Start: 08-02-2024 End: 08-02-2024 ambulatory Demetrius Cooper MD Work Phone: [facility] Work Phone: Start: 07-31-2024 Non-patient / Non-visit Demetrius Cooper MD Work Phone: [facility] Ambulatory Work Phone: Start: 07-27-2024 Registered Recurring Demetrius gardiner MD Work Phone: [facility] Start: 07-27-2024 Non-patient / Non-visit Demetrius Cooper MD Work Phone: [facility] Ambulatory Work Phone: Start: 07-26-2024 End: 07-26-2024 ambulatory MATTEO MELO V Not Available Start: 07-26-2024 Registered Recurring Demetrius gardiner MD Work Phone: [facility] Acute Work Phone: Start: 07-26-2024 Non-patient / Non-visit Demetrius Cooper MD Work Phone: [facility] Palliative Work Phone: Start: 07-26-2024 End: 07-26-2024 Departed Referred Demetrius Cooper MD Work Phone: [facility] Start: 07-26-2024 End: 07-26-2024 ambulatory Demetrius Cooper MD Work Phone: [facility] Work Phone: Start: 07-26-2024 End: 07-26-2024 Patient encounter procedure Demetrius Cooper MD Work Phone: [facility] Ambulatory Work Phone: Start: 07-26-2024 Non-patient / Non-visit Demetrius Cooper MD [facility] Phone[facility] Start: 07-24-2024 Non-patient / Non-visit Demetrius Cooper MD Work Phone: [facility] Work Phone: Start: 07-21-2024 ambulatory Mary Ordoñez y:[facility] Start: 07-20-2024 Registered Recurring Demetrius gardiner MD Work Phone: [facility] Start: 07-20-2024 Non-patient / Non-visit Demetrius Cooper MD Work Phone: [facility] Ambulatory Work Phone: Start: 07-20-2024 End: 07-20-2024 Patient encounter procedure Demetrius Cooper MD Work Phone: [facility] Ambulatory Work Phone: Start: 07-19-2024 End: 07-19-2024 ambulatory [facility] Start: 07-19-2024 Non-patient / Non-visit Demetrius Cooper MD Work Phone: [facility] Start: 07-19-2024 End: 07-19-2024 Departed Referred Demetrius Cooper MD Work Phone: [facility] Start: 07-19-2024 End: 07-19-2024 Patient encounter procedure Demetrius Cooper MD Work Phone: [facility] Start: 07-19-2024 End: 07-19-2024 ambulatory Debora Wild Facility:[facility] Start: 07-17-2024 End: 07-17-2024 External Result Encounter Matteo Mleo MD Work Phone: [facility] External Department Unsolicited Start: 07-17-2024 End: 07-17-2024 External Result Encounter Matteo Bell MD Work Phone: [facility] External Department Unsolicited Start: 07-17-2024 Registered Recurring Demetrius gardiner MD [facility] Work Phone: Start: 07-17-2024 End: 07-17-2024 Admission to same day surgery center Demetrius Cooper MD [facility] [place] Start: 07-17-2024 End: 07-17-2024 ambulatory Demetrius Cooper MD Work Phone: [facility] Work Phone: Start: 07-17-2024 Non-patient / Non-visit Demetrius Cooper MD Work Phone: [facility] Ambulatory Work Phone: Start: 07-13-2024 Non-patient / Non-visit Demetrius Cooper MD Work Phone: [facility] Ambulatory Work Phone: Start: 07-12-2024 Non-patient / Non-visit Demetrius Cooper MD Work Phone: [facility] Start: 07-12-2024 Registered Recurring Demetrius gardiner MD Work Phone: [facility] Acute Work Phone: Start: 07-12-2024 Non-patient / Non-visit Demetrius Cooper MD Work Phone: [facility] Palliative Work Phone: Start: 07-12-2024 End: 07-12-2024 Patient encounter procedure Demetrius Cooper MD Work Phone: [facility] Ambulatory Work Phone: Start: 07-12-2024 End: 07-12-2024 ambulatory Demetrius Cooper MD Work Phone: [facility] Work Phone: Start: 07-10-2024 Non-patient / Non-visit Demetrius Cooper MD Work Phone: [facility] Ambulatory Work Phone: Start: 07-10-2024 End: 07-10-2024 ambulatory [facility] Start: 07-06-2024 Non-patient / Non-visit Demetrius Cooper MD Work Phone: [facility] Ambulatory Work Phone: Start: 07-06-2024 Non-patient / Non-visit Demetrius Cooper MD Work Phone: [facility] Start: 07-06-2024 Non-patient / Non-visit Demetrius Cooper MD Work Phone: [facility] Pall[facility] Work Phone: Start: 07-06-2024 End: 07-06-2024 Departed Referred Demetrius Cooper MD Work Phone: [facility] Start: 07-06-2024 End: 07-06-2024 Patient encounter procedure Demetrius Cooper MD Work Phone: [facility] Start: 07-06-2024 End: 07-06-2024 ambulatory Demetrius Cooper MD Work Phone: [facility] Work Phone: Start: 07-05-2024 Non-patient / Non-visit Demetrius Cooper MD Work Phone: [facility] Work Phone: Start: 07-04-2024 End: 07-04-2024 ambulatory Demetrius Cooper Facility:[facility] Start: 07-03-2024 End: 07-03-2024 Lab Drop off Mhd Ramin Faustin [facility] Start: 07-03-2024 End: 07-03-2024 Departed Referred Demetrius Cooper MD Work Phone: [facility] [place] Start: 07-03-2024 End: 07-03-2024 Lab Drop off Demetrius Cooper [facility] Start: 07-03-2024 End: 07-03-2024 ambulatory Demetrius Cooper Facility:[facility] Start: 06-23-2024 End: 06-23-2024 Patient encounter procedure Isabel Romano AUD Work Phone: [facility] Comment on above: Sensorineural hearin g loss, bilateral (Primary Dx); Tinnitus, bilateral Start: 06-23-2024 End: 06-23-2024 ambulatory ISABEL ROMANO Not Available Start: 06-23-2024 End: 06-23-2024 Bamboo flowsheet Isabel Romano AUD Work Phone: [facility] Start: 06-23-2024 End: 06-23-2024 Bamboo flowsheet Isabel Romano AUD Work Phone: [facility] Start: 06-22-2024 End: 06-22-2024 Patient encounter procedure Demetrius Cooper MD Work Phone: [facility]Pre-Surgical Testing Work Phone: Start: 06-22-2024 End: 06-22-2024 ambulatory Demetrius Cooper MD Work Phone: [facility] Work Phone: Start: 06-22-2024 Encounter for preprocedural laboratory examination Matteo Melo [facility] Start: 06-22-2024 End: 06-22-2024 External Result Encounter Matteo Melo MD Work Phone: [facility] External Department Unsolicited Start: 06-22-2024 End: 06-22-2024 External Result Encounter Matteo Bell MD Work Phone: [facility] External Department Unsolicited Start: 06-20-2024 End: 06-20-2024 Office outpatient new 45 minutes Matteo Melo MD Work Phone: [facility] Comment on above: Poor intravenous acc ess (Primary Dx); Carcinoma of oropharynx (CMS/HCC) Start: 06-20-2024 End: 06-20-2024 ambulatory MATTEO MELO V Not Available Start: 06-20-2024 Non-patient / Non-visit Demetrius Cooper MD Work Phone: [facility] Ambulatory Work Phone: Start: 06-20-2024 Registered Recurring Demetrius gardiner MD Work Phone: [facility] Acute Work Phone: Start: 06-14-2024 End: 06-14-2024 ambulatory Demetrius Cooper MD Work Phone: [facility] Work Phone: Start: 06-14-2024 End: 06-14-2024 Patient encounter procedure Demetrius Cooper MD Work Phone: [facility] Ambulatory Work Phone: Start: 06-14-2024 Registered Recurring Demetrius gardiner MD Work Phone: [facility] Work Phone: Start: 06-14-2024 End: 06-14-2024 ambulatory Demetrius Cooper MD Work Phone: [facility] Work Phone: Start: 06-14-2024 End: 06-14-2024 Patient encounter procedure Demetrius Cooper MD Work Phone: [facility] Amb[facility] Work Phone: Start: 06-06-2024 End: 06-06-2024 ambulatory [facility] Start: 06-05-2024 End: 06-05-2024 Subsequent hospital visit by physician [facility] Comment on above: Enlarged submental l ymph node Start: 06-05-2024 End: 06-05-2024 ambulatory MARY Tripp LY [facility] Start: 05-30-2024 End: 05-30-2024 Postop follow up visit related to original px Mary Ly MD Work Phone: [facility] Comment on above: 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); Metastasis to cervical lymph node Start: 05-30-2024 End: 05-30-2024 ambulatory MARY Tripp LY [facility] Start: 05-15-2024 End: 05-15-2024 Subsequent hospital visit by physician Rad External Film EF RAD EXTERNAL [facility]M [facility] Comment on above: Arrived Start: 05-15-2024 End: 05-15-2024 ambulatory MARY Tripp [facility] Start: 05-11-2024 End: 05-11-2024 Subsequent hospital visit by physician Mary Ly MD Work Phone: [facility] [place] Comment on above: 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); Acute postoperative pain Start: 04-26-2024 Evaluation and management of inpatient MARY Tripp [facility] Start: 04-25-2024 End: 04-25-2024 ambulatory [facility] Start: 04-18-2024 ambulatory MARY LY [facility] Start: 04-17-2024 End: 04-17-2024 Lab Drop off Demetrius Cooper [facility] Start: 04-17-2024 End: 04-17-2024 ambulatory Demetrius Cooper Facility:[facility] Start: 04-11-2024 End: 04-11-2024 ambulatory MARY Tripp [facility] Start: 04-11-2024 End: 04-11-2024 Encounter for other preprocedural examination MARY Qasim [facility] Start: 04-11-2024 End: 04-11-2024 Encounter for preprocedural cardiovascular examination MARY Qasim [facility] Start: 04-11-2024 End: 04-11-2024 Encounter for preprocedural respiratory examination MARY Qasim [facility] Start: 04-07-2024 End: 04-07-2024 Office outpatient new 45 minutes Mary Ly MD Work Phone: [facility] Comment on above: 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); Oral lesion; Malignant neoplasm of floor of mouth Start: 04-07-2024 End: 04-07-2024 ambulatory MARY Tripp [facility] Start: 03-29-2024 End: 03-29-2024 Bamboo trever Ham MD Work Phone: [facility] Start: 03-29-2024 End: 03-29-2024 Joie Ham MD Work Phone: [facility] Start: 03-29-2024 End: 03-29-2024 Office outpatient visit 15 minutes Luc Ham MD Work Phone: [facility] Comment on above: 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); Ulcer of gingiva Start: 03-29-2024 End: 03-29-2024 ambulatory LUC HAM Not Available Start: 03-27-2024 End: 03-27-2024 ambulatory LUC HAM Facility:[facility] Start: 03-27-2024 End: 03-27-2024 Subsequent hospital visit by physician Arrival Time Radiology Work Phone: Radiology [facility] Start: 03-23-2024 End: 03-23-2024 [facility] Start: 03-23-2024 End: 03-23-2024 Patient encounter procedure [facility] Start: 03-08-2024 End: 03-08-2024 Bamboo flowsheet Luc Ham MD Work Phone: [facility] Start: 03-08-2024 End: 03-08-2024 Bamboo flowsheet Luc Ham MD Work Phone: [facility] Start: 03-08-2024 End: 03-08-2024 Office outpatient visit 40 minutes Luc Ham MD Work Phone: [facility] Comment on above: Oral ulcer (Primary Dx); 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 Work Phone: Start: 02-29-2024 End: 02-29-2024 Departed Referred MD Demetrius Cooper Work Phone: [facility] Start: 02-16-2024 End: 02-16-2024 Office outpatient visit 25 minutes Luc Ham MD Work Phone: [facility] Comment on above: LAD (lymphadenopathy ) of right cervical region (Primary Dx) Start: 02-16-2024 End: 02-16-2024 ambulatory LUC HAM Not Available Start: 02-16-2024 End: 02-16-2024 Bamboo flowsheet Missy Lowe PA Work Phone: [facility] [address] Start: 02-16-2024 End: 02-16-2024 Bamboo flowsheet Missy Lowe PA Work Phone: [facility] [address] Start: 02-16-2024 End: 02-16-2024 Office outpatient visit 15 minutes Missy Lowe PA Work Phone: [facility] [address] Comment on above: Migraine without [...] General Surgery Start: 01-25-2024 End: 01-25-2024 ambulatory [facility] Start: 01-10-2024 End: 01-10-2024 ambulatory MD Demetrius Cooper Facility:[facility] Start: 11-30-2023 End: 11-30-2023 ambulatory [facility] Start: 11-29-2023 End: 11-29-2023 ambulatory MD Demetrius oCoper Facility:[facility] Start: 11-09-2023 End: 11-09-2023 ambulatory Wiley Talal Sarmini Facility:[facility] Start: 11-09-2023 End: 11-09-2023 Patient encounter procedure Wiley Talal Sarmini [facility] Start: 11-08-2023 End: 11-08-2023 ambulatory MD Demetrius Cooper Facility: [facility] [place] Start: 10-21-2023 End: 10-21-2023 ambulatory Wiley Talal Sarmini [facility] Start: 10-21-2023 End: 10-21-2023 Patient encounter procedure Wiley Talal Sarmini [facility] Start: 09-17-2023 End: 09-17-2023 ambulatory Anjali Ruby Facility:[facility] Start: 09-17-2023 End: 09-17-2023 Patient encounter procedure Anjali Ruby [facility] Start: 09-02-2023 End: 09-02-2023 ambulatory [facility] Work Phone: Start: 09-02-2023 End: 09-02-2023 Patient encounter procedure [facility] Work Phone: Start: 08-30-2023 End: 08-30-2023 ambulatory MD Demetrius Cooper Facility:[facility] [place] Start: 07-27-2023 End: 07-27-2023 Patient encounter procedure [facility] [place] Work Phone: Start: 05-31-2023 Office outpatient vi sit 25 minutes Gisele [facility] Start: 05-31-2023 End: 05-31-2023 ambulatory MD Demetrius Cooper Work Phone: [facility] Work Phone: Start: 05-31-2023 End: 05-31-2023 Patient encounter procedure MD Demetrius Cooper Work Phone: [facility]-Sleep Lab Work Phone: Start: 05-25-2023 End: 05-25-2023 Patient encounter procedure Anjali Ruby [facility] Start: 04-05-2023 Telephone encounter Vaishali orr MD Work Phone: General Surgery Comment on above: [facility] Start: 04-01-2023 End: 04-01-2023 ambulatory VAISHALI PRINGLE Facility:[facility] Start: 04-01-2023 End: 04-01-2023 Patient encounter procedure Vaishali Pringle MD Work Phone: General Surgery Comment on above: IPMN (intraductal pa pillary mucinous neoplasm) (Primary Dx) Start: 03-10-2023 End: 03-10-2023 Patient encounter procedure Anjali Ruby [facility] Start: 03-10-2023 End: 03-10-2023 Patient encounter procedure Anjali Rodriguezz [facility] Start: 02-25-2023 End: 02-25-2023 Patient encounter procedure Anjali Rodriguezz [facility] Start: 02-16-2023 End: 02-16-2023 ambulatory MD Demetrius Cooper Work Phone: [facility] Work Phone: Start: 02-16-2023 End: 02-16-2023 Patient encounter procedure MD Demetrius Cooper Work Phone: [facility]-MRI [facility] [place] Work Phone: Start: 01-29-2023 Office outpatient vi sit 25 minutes [facility] Start: 01-29-2023 End: 01-29-2023 ambulatory MD Demetrius Cooper Work Phone: [facility] Work Phone: Start: 01-29-2023 End: 01-29-2023 Patient encounter procedure MD Demetrius Cooper Work Phone: [facility]-Sleep Lab Work Phone: Start: 01-27-2023 ambulatory Facility:[id number] Start: 01-27-2023 End: 01-27-2023 ambulatory MD Demetrius Cooper Work Phone: [facility] Work Phone: Start: 01-27-2023 End: 01-27-2023 Patient encounter procedure MD Demetrius Cooper Work Phone: [facility]-Pacemaker Check Start: 01-12-2023 End: 01-12-2023 Patient encounter procedure Anjali Omalley Flori [facility] Start: 12-17-2022 End: 12-17-2022 Patient encounter procedure Anjali Omalley Flori [facility] Start: 12-09-2022 End: 12-09-2022 ambulatory MD Demetrius Cooper Work Phone: [facility] Work Phone: Start: 12-09-2022 End: 12-09-2022 Patient encounter procedure MD Demetrius Cooper Work Phone: [facility]Sleep [facility] Work Phone: Start: 11-23-2022 End: 11-23-2022 Lab Drop off Demetrius Cooper [facility] Start: 10-13-2022 Office outpatient vi sit 15 minutes Gise[facility] Start: 10-13-2022 End: 10-13-2022 ambulatory MD Mg London Work Phone: [facility] Work Phone: Start: 10-13-2022 End: 10-13-2022 Patient encounter procedure MD Mg London Work Phone: [facility]Sleep Lab Work Phone: Start: 09-29-2022 End: 09-29-[address] EDY CARNEY Facility:[facility] Start: 09-24-2022 End: 09-25-[address] GM LONDON Facility:[facility] Start: 09-22-2022 End: 09-22-2022 Emergency department patient visit Gordy Sánchez [facility] Start: 09-22-2022 Office outpatient vi sit 15 minutes Griselda Pennington [facility] [place] Start: 09-22-2022 End: 09-22-2022 ambulatory BETTY BUTTS . [employer] Other Start: 08-25-2022 End: 08-26-2022 ambulatory NARENDRANATH LAKSHMIPATHY . Facility:[facility] Start: 08-12-2022 ambulatory Facility:[id number] Start: 08-12-2022 End: 08-12-2022 ambulatory MD Mg London Work Phone: [facility] Work Phone: Start: 08-12-2022 End: 08-12-2022 Patient encounter procedure MD Mg London Work Phone: [facility]MRI [facility] [place] Work Phone: Start: 08-11-2022 End: 08-11-2022 ambulatory NARENDRANATH LAKSHMIPATHY . Facility:[facility] Start: 07-29-2022 Office outpatient ne w 60 minutes Erwin [facility] Start: 07-29-2022 End: 07-29-2022 ambulatory MD Mg London Work Phone: [facility] Work Phone: Start: 07-29-2022 End: 07-29-2022 Patient encounter procedure MD Mg London Work Phone: [facility]-Sleep Lab Work Phone: Start: 07-23-2022 End: 07-24-2022 ambulatory SONNY LOZANOIS . Facility:[facility] Start: 07-22-2022 End: 07-23-2022 ambulatory ALANNA Araiza [facility] Facility:[facility] Start: 07-21-2022 ambulatory Facility:[id number] Start: 07-21-2022 End: 07-21-2022 ambulatory MD Mg London Work Phone: [facility] Work Phone: Start: 07-21-2022 End: 07-21-2022 Patient encounter procedure MD Mg London Work Phone: [facility]-Pacemaker Check Start: 06-18-2022 End: 07-10-2022 ambulatory SONA COPPOLA Facility:[facility] Start: 06-16-2022 End: 06-17-2022 ambulatory SONA COPPOLA Facility:[facility] Start: 06-11-2022 End: 06-12-2022 ambulatory ALANNA Araiza [facility] Facility:[facility] Start: 05-26-2022 End: 05-26-2022 Patient encounter procedure Dequan Son GALICIA [facility] Start: 04-16-2022 End: 04-17-[address] ERWIN FALCON Facility:[facility] Start: 03-19-[address] AMANDA CLANCY . Faci lity:[facility]1 Start: 03-12-2022 End: 03-13-2022 ambulatory ALANNA Araiza [facility] Facility:[facility] Start: 03-10-2022 End: 03-11-2022 ambulatory DIEGO COYNE Facility:[facility] Start: 03-06-2022 End: 03-07-[address] DOCTOR GOFF Facility:[facility] Start: 12-25-2021 End: 12-26-2021 ambulatory SONNY LAZO . Facility:[facility] Start: 12-01-2021 End: 12-02-2021 ambulatory ALANNA Araiza [facility] Facility:[facility] Start: 11-29-2021 End: 11-29-2021 ambulatory Leti Garcia Other [employer] Other Start: 11-29-2021 Office outpatient vi sit 15 minutes Leti Garcia [facility] [place] Start: 11-13-2021 End: 12-19-2021 ambulatory OSMAR JARQUIN Facility:[facility] Start: 09-04-2020 End: 09-04-2020 Patient encounter procedure Param Cosme Work Phone: -[facility] [place] Start: 08-15-2020 End: 08-15-2020 Patient encounter procedure Param Cosme -Pacemaker Check Start: 08-30-2019 End: 08-31-2019 Patient encounter procedure EHAB A NEFTALI Facility:[facility] Procedures Date Procedure Procedure Detail Performing Clinician Start: 09-20-2024 Computed tomography of abdomen and pelvis with contrast Demetrius Cooper MD Work Phone: Start: 09-11-2024 Follow-up visit Follow-up MARY LY Start: 08-20-2024 CT of chest without contrast Demetrius Cooper MD Work Phone: Start: 08-20-2024 Plain chest X-ray Demetrius Cooper MD Work Phone: Start: 08-20-2024 Bacteria identified in Blood by Culture Demetrius Cooper MD Work Phone: Start: 08-20-2024 Respiratory Panel (PCR) Demetrius Cooper MD Work Phone: Start: 07-17-2024 Plain chest X-ray Demetrius Cooper MD Work Phone: Start: 07-17-2024 Central venous cannula insertion Demetrius Cooper MD Work Phone: Start: 07-17-2024 OR Infusaport Insertion/Removal (Not Applicable) Demetrius Cooper MD Work Phone: Start: 07-17-2024 GLUCOSE POCT GLUCOMETERS Matteo Araiza Work Phone: Start: 06-23-2024 AUDITORY FUNCTION TESTS Isabel Romano [place] Work Phone: Start: 06-22-2024 Basic metabolic panel calcium total Matteo Melo MD Work Phone: Start: 06-22-2024 Complete blood count with white cell differential, automated Matteo Melo MD Work Phone: Start: 06-05-2024 Us guidance needle placement img s&i Mary Ly MD Work Phone: Start: 05-15-2024 Study Interpretation of outside study Mary Ly MD Work Phone: Start: 05-11-2024 Glucose quantitative blood xcpt reagent strip Mary Ly MD Work Phone: Start: 05-11-2024 PULSE OXIMETRY, CONTINUOUS Delvis gilbert MD Work Phone: Start: 05-11-2024 Glucose quantitative blood xcpt reagent strip Mary Ly MD Work Phone: Start: 05-11-2024 VERAB/VERIFY ABORH Gabo Munoz MD Work Phone: Start: 05-11-2024 Blood typing serologic rh (d) Gabo Martin MD Work Phone: Start: 03-27-2024 Gluc bld gluc mntr dev cleared fda spec home use [facility] Provider Start: 08-17-2023 Destructive procedure Anjali Ruby Comment on above: done for pain Start: 06-14-2023 Colonoscopy Anjali Ruby Start: 04-15-2023 Esophagogastroduodenoscopy Anjali mcwilliams Start: 02-16-2023 MR abdomen wo con MD Demetrius Cooper Work Phone: Start: 08-12-2022 MRI of cervical spine without contrast MD Mg London Work Phone: Start: 08-12-2022 XR pre/post mri xray MD Mg London Work Phone: Start: 08-12-2022 MRI of right ankle MD Mg London Work Phone: Start: 03-10-2022 PSA screening ALANNA HARDY Comment on above: Performed By: #### CBC #### [facility] [address] [place] [address] Dr. Ramsey Sanchez Start: 05-20-2020 Esophagogastroduodenoscopy Dequan Fish Comment on above: 2 diminunative ulcers, gastritis, gastri c polyp, biopsy Angioplasty of blood vessel Dequan GALICIA Cardiac pacemaker procedure Dequan GALICIA Cataract (disorder) Gordy brannon Comment on above: bilateral Cholecystectomy Dequan MALDONADO Colonoscopy Dequan GALICIA Hernia repair Dequan GALICIA Prostatectomy Dequan GALICIA Tonsillectomy Dequan GALICIA Vasectomy Dequan GALICIA Plan of Treatment Date Care Activity Detail Author Start: 04-11-2025 Creatinine measurement Creatinine [facility] Start: 04-11-2025 Potassium measurement Potassium Levelizabeth [facility] Start: 12-11-2024 End: 12-11-2024 Patient encounter procedure 12/11/2024 10:00 AM EDT Office Visit [facility] [address] [place] [id number] [place] [address] [place] [address] [facility] Start: 10-11-2024 End: 10-11-2024 Patient encounter procedure 10/11/2024 2:15 PM EDT Office Visit [facility] [address] [place] [phone] Veena Adkins DO [address] [place] [address] [address] [facility] Start: 09-28-2024 End: 09-28-2024 Patient encounter procedure LISANDRO [facility] Comment on above: Arrived Start: 08-29-2024 End: 08-29-2024 Patient encounter procedure [facility] Start: 08-21-2024 [facility] Start: 08-21-2024 Administration of prophylactic treatment [facility] Start: 08-21-2024 [facility] Start: 08-21-2024 [facility] Start: 08-20-2024 Referral to infectio us diseases physician [facility] Start: 08-20-2024 [facility] Start: 08-20-2024 CT Chest WO contrast Fi [facility] Start: 08-20-2024 CT of chest without contrast CT chest wo con [facility] Start: 08-20-2024 Hospital admission [facility] Start: 08-20-2024 [facility] Start: 08-20-2024 Bacteria identified in Blood by Culture Blood Culture [facility] Start: 08-17-2024 [facility] Start: 08-09-2024 End: 08-09-2024 [facility] Start: 08-03-2024 End: 08-03-2024 [facility] Start: 08-03-2024 [facility] Start: 07-27-2024 [facility] Start: 07-26-2024 End: 07-26-2024 Patient encounter procedure 07/26/2024 10:15 AM EDT Office Visit [facility] [address] [place] [address] Matteo Melo MD [address] [place] [address] [address] [facility] Start: 07-20-2024 [facility] Start: 07-20-2024 [facility] Start: 07-17-2024 [facility] Start: 07-13-2024 [facility] Start: 07-11-2024 End: 07-11-2024 Patient encounter procedure 07/11/2024 1:15 PM EST Office Visit [facility] [address] [place] [address] Matteo Melo MD [address] [place] [address] [facility] Start: 07-06-2024 [facility] Start: 07-03-2024 Central venous cannu la insertion OR Infusaport Insertion/Removal (Not Applicable) [facility] Start: 06-30-2024 [facility] Start: 06-23-2024 End: 06-23-2024 Patient encounter procedure [facility] Comment on above: Arrived Start: 06-14-2024 Patient referral [facility] Work Phone: Start: 06-05-2024 End: 06-05-2024 Patient encounter procedure 06/05/2024 1:00 PM EST Appointment [facility] [address] [place] [phone] [facility] Start: 05-30-2024 End: 05-30-2024 Telemedicine consultation with patient 05/30/2024 11:45 AM EST Telemedicine [facility] [address] [place] [phone] [place] [address] [place] [address] [facility] Start: 05-11-2024 End: 05-11-2024 Brncc incl fluor gdnce dx w/cell washg spx 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 05/11/2024 7:17 AM EST [facility] [place] Start: 05-11-2024 End: 05-11-2024 Esophagoscopy flexible transoral diagnostic Esophagoscopy Malignant neoplasm of floor of mouth 05/11/2024 7:17 AM EST [facility] [place] Start: 05-11-2024 End: 05-11-2024 Glossectomy hemiglossectomy GLOSSECTOMY, ROBOT-ASSISTED, ORAL APPROACH Malignant neoplasm of floor of mouth 05/11/2024 7:17 AM EST [facility] [place] Start: 05-11-2024 End: 05-11-2024 Laryngoscopy w/wo tracheoscopy dx except Direct Laryngoscopy Malignant neoplasm of floor of mouth 05/11/2024 7:17 AM EST [facility] [place] Start: 05-11-2024 End: 05-11-2024 Tonsillectomy primary/secondary age 11/> Tonsillectomy Malignant neoplasm of floor of mouth 05/11/2024 7:17 AM EST [facility] [place] Start: 04-19-2024 Subsequent hospital visit by physician 04/19/2024 Hospital Encounter [facility] [place] [address] [place] [address] [place] [address] [place] [address] [facility] [place] Start: 04-07-2024 End: 04-07-2025 Request for Pre-Admission Testing Visit Request for Pre-Admission Testing Visit Procedures Routine Oral lesion Malignant neoplasm of floor of mouth Expected: 04/07/2024 (Approximate), Expires: 04/07/2025 [facility] Service Area Work Phone: Comment on above: Expected: 04/07/2024 (Approximate), Expires: 04/07/2025 Start: 03-08-2024 End: 03-08-2024 Patient encounter procedure [facility] Comment on above: Arrived Start: 02-16-2024 End: 02-16-2024 Patient encounter procedure 02/16/2024 2:30 PM EDT Office Visit [facility] [address] [place] [id number] Luc Ham MD [address] [place] [address] [facility] Start: 02-16-2024 End: 02-16-2024 Patient encounter procedure [facility] [address] Comment on above: Arrived Start: 02-01-2024 End: 02-01-2024 Patient encounter procedure 02/01/2024 1:10 PM EDT Office Visit [facility] [address] [place] [address] Luc Ham MD [address] [place] [address] Arrived [facility] Comment on above: Arrived Start: 01-16-2024 Covid-19 Vaccine () Covid-19 Vaccine () [facility] Start: 01-16-2024 Covid-19 Vaccine () Covid-19 Vaccine () [facility] Start: 01-16-2024 Covid-19 Vaccine ( season) Covid-19 Vaccine ( season) [facility] Start: 01-16-2024 Influenza vaccination Influenza Vacc ine (#1) [facility] Start: 05-17-2023 Advance Directive Discussion Advance Directive Discussion [facility] Start: 01-15-2023 Covid-19 Vaccine ( season) Covid-19 Vaccine () [facility] Start: 01-15-2023 Influenza vaccination Influenza Vacc ine (#1) [facility] Start: 11-12-2022 ambulatory Ambulatory Facility:H 1 Start: 05-17-2022 Advance Directive Discussion Advance Directive Discussion [facility] Start: 05-17-2022 Depression Assessment Depression Ass essment [facility] Start: 09-04-2020 MRI of right ankle MR ankle RT wo co n [facility] Start: 09-04-2020 XR pre/post mri xray XR pre/post mri xray [facility] Start: 01-30-2015 Pneumococcal Vaccine : 65+ (2 - PPSV23 or PCV20) Pneumococcal Vaccine: 65+ (2 - PPSV23 or PCV20) [facility] Start: 01-30-2015 Pneumococcal Vaccine : 65+ (2 of 2 - PPSV23 or PCV20) Pneumococcal Vaccine: 65+ (2 of 2 - PPSV23 or PCV20) [facility] Start: 10-29-2014 RSV High Risk: (Elde rly (60+) or Population) (1 - 1-dose 75+ series) RSV High Risk: (Elderly (60+) or Population) (1 - 1-dose 75+ series) [facility] Start: 10-29-2014 RSV Vaccine (1 - 1-d ose 75+ series) RSV Vaccine (1 - 1-dose 75+ series) [facility] Start: 1999 RSV Vaccine (1 - 1-d ose 60+ series) RSV Vaccine (1 - 1-dose 60+ series) [facility] Start: 10-29-1989 Shingrix Vaccine (1 of 2) Best grix Vaccine (1 of 2) [facility] Start: 10-29-1984 Diabetes Screening Diabetes Screenin g [facility] Start: 10-29-1961 DTaP/Tdap/Td Vaccine s (1 - Tdap) DTaP/Tdap/Td Vaccines (1 - Tdap) [facility] Start: 10-29-1958 Urine microalbumin profile DTa P,Tdap,Td Vaccine (1 - Tdap) [facility] Start: 10-29-1958 Urine screening for protein Diabetes: Urine Protein Screening [facility] Start: 10-29-1957 Anxiety Screening Anxiety Screening [facility] Start: 10-29-1957 Depression Screening Depression Scre ening [facility] Start: 10-29-1949 Glaucoma screening Diabetes: R etinopathy Screening [facility] Start: 1940 Annual wellness visit Welcome to Medicare Visit [facility] Start: 1940 Echocardiography Echocardiogram [facility] Start: 1939 Hemoglobin A1c measurement Mary betes: Hemoglobin A1C [facility] Start: 1939 Lipid panel Lipid Panel [facility] Start: 1939 Medicare Annual Well ness Visit Medicare Annual Wellness Visit (AWV) [facility] Start: 1939 Urine screening for protein Diabetes: Urine Protein Screening [facility] End: 05-11-2024 Cardiac device check - Inpatient [facility] Service Area Work Phone: Comment on above: Once for 1 Occurrenc es starting 05/11/2024 until 05/11/2024 End: 05-11-2024 Cardiac device check - Surgery [facility] Work Phone: Comment on above: Once for 1 Occurrenc es starting 05/11/2024 until 05/11/2024 Comprehensive metabo lic 1999 panel - Serum or Plasma [facility] Comprehensive metabo lic 1999 panel - Serum or Plasma [facility] Comprehensive metabo lic 1999 panel - Serum or Plasma [facility] Comprehensive metabo lic 1999 panel - Serum or Plasma [facility] Comprehensive metabo lic 1999 panel - Serum or Plasma [facility] CT with contrast for radiotherapy planning [facility] CT with contrast for radiotherapy planning [facility] End: 05-11-2024 Glucose [Mass/volume] in Serum or Plasma POCT Glucose Point of Care Testing - Docked Device Routine Once (Lab) for 1 Occurrences starting 05/11/2024 until 05/11/2024 [facility] Service Area Work Phone: Comment on above: Once (Lab) for 1 Occ urrences starting 05/11/2024 until 05/11/2024 Laryngoscopy w/wo tracheoscopy dx except Direct Laryngoscopy Oral lesion Malignant neoplasm of floor of mouth [facility] [place] End: 03-02-2025 MR Biliary ducts and Pancreatic duct WO and W contrast IV MRI PANC/TRISH WO/W IVCON Radiology Routine IPMN (intraductal papillary mucinous neoplasm) 1 Occurrences starting 02/01/2024 until 03/02/2025 [facility] Work Phone: Comment on above: 1 Occurrences starti ng 02/01/2024 until 03/02/2025 End: 03-02-2025 MR Unspecified body region 3D post processing MRI 3D POST PROCESSING Radiology Routine IPMN (intraductal papillary mucinous neoplasm) 1 Occurrences starting 02/01/2024 until 03/02/2025 [facility] Comment on above: 1 Occurrences starti ng 02/01/2024 until 03/02/2025 Patient Education [facility] Work Phone: Patient referral [facility] Work Phone: Surgical pathology study Surgica l Pathology Exam Pathology and Cytology Routine Oral lesion 04/07/2024 11:37 AM EST [facility] Work Phone: Surgical pathology study [facility] Service Area Work Phone: Comment on above: Release Upon Orderin g for 1 Occurrences starting 05/11/2024, 1 completed End: 06-05-2024 Surgical pathology study [facility] Service Ar ea Work Phone: Comment on above: Once (Lab) for 1 Occ urrences starting 06/05/2024 until 06/05/2024, 1 completed [facility] Immunizations Immunization Date Immunization Notes Care Provider Arely brantley 04-17-2024 influenza, high dose seasonal, preservative-free; Translations: [Fluzone High Dose Vaccine] Demetrius Cooper [facility] 02-09-2024 zoster vaccine recombinant Wiley Sarmini [facility] 11-22-2023 pneumococcal 20-reta nt conjugate vaccine Wiley Sarmini [facility] 11-22-2023 zoster vaccine recombinant Wiley Sarmini [facility] 04-28-2023 COVID-19 (PFIZER) 12Y and older Demetrius Cooper MD Work Phone: [facility] 04-12-2023 influenza virus vaccine, unspecified formulation Anjali Staffordmetz [facility] 11-25-2021 Pfizer Haque Cap SARS-CoV-2 Vaccination Luc Ham MD Work Phone: [facility] 11-25-2021 SARS-CoV-2 mRNA (uvyzhqzqxyv-hdxp-hrbv ose) vaccine Demetrius Cooper [facility] 11-25-2021 SARS-CoV-2, Unspecified Missy PEMBERTON Work Phone: [facility] 03-06-2021 SARS-CoV-2 (COVID-19 ) mRNA BNT-162b2 vax Demetrius Cooper [facility] Comment on above: Result Comment: 2022: [id number] 03-06-2021 SARS-CoV-2, Unspecified Luc Ham MD Work Phone: [facility] 02-18-2021 influenza virus vaccine, unspecified formulation Demetrius Cooper [facility] 02-18-2021 Influenza, injectabl e, Madin Mireya Canine Kidney, preservative free, quadrivalent Luc Ham MD Work Phone: [facility] 06-27-2020 SARS-CoV-2 (COVID-19 ) Ad26 vaccine, recombinant Dequan GALICIA [facility] 06-27-2020 SARS-CoV-2 (COVID-19 ) mRNA BNT-162b2 vax Dequan GALICIA [facility] 06-27-2020 SARS-CoV-2, Unspecified Luc Ham MD Work Phone: [facility] 06-06-2020 SARS-CoV-2 (COVID-19 ) Ad26 vaccine, recombinant Dequan GALICIA [facility] 06-06-2020 SARS-CoV-2 (COVID-19 ) mRNA BNT-162b2 vax Dequan GALICIA [facility] 06-06-2020 SARS-CoV-2, Unspecified Luc Ham MD Work Phone: [facility] 02-14-2020 influenza virus vaccine, unspecified formulation Demetrius Cooper [facility] 02-14-2020 Influenza, injectabl e, Madin [place] Canine Kidney, preservative free, quadrivalent Luc Ham MD Work Phone: [facility] 01-31-2019 influenza, high dose seasonal, preservative-free Luc Ham MD Work Phone: [facility] 01-22-2018 influenza virus vaccine, unspecified formulation Luc Ham MD Work Phone: [facility] 01-22-2018 influenza, injectabl e, quadrivalent, contains preservative Luc Ham MD Work Phone: [facility] 01-22-2018 influenza, unspecifi ed formulation Demetrius Cooper [facility] 01-30-2014 pneumococcal conjuga te vaccine, 13 kathryn Cooper [facility] 01-30-2014 pneumococcal conjuga te vaccine, 7 kathryn Ham MD Work Phone: [facility] [facility] [employer] Healthcare Payers Date Payer Category Payer Private Health Insurance [id number] 2024 Self-pay [id number] 2023 Dual Eligibility Medicare/Medicaid Organization [facility] DUAL COMPLETE [id number] 2022 Medicare [id number]. [id number] 2022 Medicare (Managed Care) 1.2. [id number] [id number] 2022 Medicare [id number] 2022 Medicare [id number] 1959 Medicare [id number] 1959 Medicare [id number] 1959 Medicare [id number] 1959 [facility] [id number] 1939 Unknown [id number] 2.16.840.1.579402.3.579. 2.647 1939 Unknown [id number] 2.16.840.1.223554.3.579. 2.593 1939 Unknown [id number] 2.16.840.1.353904.3.579. 2.593 1939 Unknown [id number] 2.16.840.1.410979.3.579. 2.593 1939 Unknown [id number] 2.16.840.1.835619.3.579. 2.593 1939 Unknown [id number] 2.16.840.1.000550.3.579. 2.593 1939 Unknown [id number] 2.16.840.1.555190.3.579. 2.593 1939 Unknown [id number] 2.16.840.1.464083.3.579. 2.593 1939 Unknown [id number] 2.16.840.1.469562.3.579. 2.593 1939 Unknown [id number] 2.16.840.1.040587.3.579. 2.593 1939 Unknown [id number] 2.16.840.1.860860.3.579. 2.593 1939 Unknown [id number] 2.16.840.1.156021.3.579. 2.593 1939 Unknown [id number] 2.16.840.1.015549.3.579. 2.593 1939 Unknown [id number] 2.16.840.1.799880.3.579. 2.593 1939 Unknown [id number] 2.16.840.1.190074.3.579. 2.593 1939 Unknown [id number] 2.16.840.1.738846.3.579. 2.593 1939 Unknown [id number] 2.16.840.1.280550.3.579. 2.593 1939 Unknown [id number] 2.16.840.1.198906.3.579. 2.593 1939 Unknown [id number] 2.16.840.1.816363.3.579. 2.593 1939 Unknown [id number] 2.16.840.1.977483.3.579. 2.593 1939 Unknown [id number] 2.16.840.1.228864.3.579. 2.593 1939 Unknown [id number] 2.16.840.1.008434.3.579. 2.356 1939 Unknown [id number] 2.16.840.1.615363.3.579. 2.356 1939 Unknown [id number] 2.16.840.1.797290.3.579. 2.356 1939 Unknown [id number] 2.16.840.1.858220.3.579. 2.727 1939 Unknown [id number] 2.16.840.1.982995.3.579. 2.727 1939 Unknown [id number] 2.16.840.1.563144.3.579. 2.727 1939 Unknown [id number] 2.16.840.1.784821.3.579. 2.727 1939 Unknown [id number] 2.16.840.1.766051.3.579. 2.727 1939 Unknown [id number] 2.16.840.1.561779.3.579. 2.727 1939 Unknown [id number] 2.16.840.1.845539.3.579. 2.727 1940 Unknown [id number] 2.16.840.1.449545.3.579. 2.72 1939 Unknown [id number] 2.16.840.1.104905.3.579. 2. 1939 Unknown [id number] 2.16.840.1.874570.3.579. 2. 1939 Unknown [id number] 2.16.840.1.808722.3.579. 2. 1939 Unknown [id number] 2.16.840.1.993722.3.579. 2. 1939 Unknown [id number] 2.16.840.1.512386.3.579. 2. 1939 Unknown [id number] 2.16.840.1.435850.3.579. 2 1939 Unknown [id number] 2.16.840.1.521136.3.579. 2. 1939 Unknown [id number] 2.16.840.1.808694.3.579. 2. 1939 Unknown [id number] 2.16.840.1.023883.3.579. 2. 1939 Unknown [id number] 2.16.840.1.118159.3.579. 2. 1939 Unknown [id number] 2.16.840.1.857734.3.579. 2. 1939 Unknown [id number] 2.16.840.1.463502.3.579. 2. 1939 Unknown [id number] 2.16.840.1.910772.3.579. 2. 1939 Unknown [id number] 2.16.840.1.783050.3.579. 2.1245 1939 Unknown [id number] 2.16.840.1.165208.3.579. 2.1245 1939 Unknown [id number] 2.16.840.1.025750.3.579. 2.124 1939 Unknown [id number] 2.16.840.1.662496.3.579. 2.124 1939 Unknown [id number] 2.16.840.1.366566.3.579. 2.1244 1939 Unknown [id number] 2.16.840.1.757851.3.579. 2.1244 1939 Unknown [id number] 2.16.840.1.165489.3.579. 2.1244 1939 Unknown [id number] 2.840.1.652795.3.579. 2.1244 1939 Unknown [id number] 2.16.840.1.236655.3.579. 2.1258 1939 Unknown [id number] 2.16.840.1.229625.3.579. 2.1258 1939 Unknown [id number] 2..840.1.892463.3.579. 2.1258 1939 Unknown [id number] 2.840.1.413501.3.579. 2.125 1939 Unknown [id number] 2.16.840.1.210204.3.579. 2.125 1939 Unknown [id number] 2.16.840.1.532204.3.579. 2.1258 1939 Unknown [id number] 2.16.840.1.164731.3.579. 2.1258 1939 Unknown [id number] 2.16.840.1.878792.3.579. 2.125 1939 Unknown [id number] 2.16.840.1.532649.3.579. 2.1259 1939 Unknown [id number] 2.16.840.1.090185.3.579. 2.1259 1939 Unknown [id number] 2.16.840.1.637253.3.579. 2.1259 1939 Unknown [id number] 2.16.840.1.077446.3.579. 2.727 1939 Unknown [id number] 2.16.840.1.043452.3.579. 2.727 1939 Unknown [id number] 2.16.840.1.764118.3.579. 2.727 Unknown [id number] 2.16.840.1.805109.3.579. 2.531 Unknown [id number] 2.16.840.1.059297.3.579. 2.531 Unknown [id number] 2.16.840.1.248482.3.579. 2.531 Unknown [id number] 2.16.840.1.432716.3.579. 2.531 Unknown [id number] 2.16.840.1.747262.3.579. 2.531 Unknown [id number] 2.16.840.1.579567.3.579. 2.531 Unknown [id number] 2.16.840.1.597516.3.579. 2.531 Unknown [id number] 2.16.840.1.379849.3.579. 2.531 Unknown [id number] 2.16.840.1.132180.3.579. 2.531 Unknown [id number] 2.16.840.1.206456.3.579. 2.531 Unknown [id number] 2.16.840.1.833677.3.579. 2.531 Unknown [id number] 2.16.840.1.011832.3.579. 2.531 Unknown [id number] 2.16.840.1.023501.3.579. 2.531 Unknown [id number] 2.16.840.1.438701.3.579. 2.531 Unknown [id number] 2.16.840.1.373109.3.579. 2.531 Unknown [id number] 2.16.840.1.990065.3.579. 2.531 Unknown [id number] 2.16.840.1.245076.3.579. 2.531 Unknown [id number] 2.16.840.1.197342.3.579. 2.531 Unknown [id number] 2.16.840.1.617184.3.579. 2.531 Unknown [id number] 2.16.840.1.332414.3.579. 2.531 Social History Date Type Detail Facility [facility] Start: 1940 Sex Assigned At Male F [facility] Start: 04-01-2023 End: 09-27-2024 Sex Assigned At [facility] Start: 04-27-2022 End: 02-16-2024 Tobacco smoking status Ex-smoker (finding) [facility] Comment on above: former smoker quit a t age 41, 1 PPD Patient states he sm oked about 1.5 PPD, cigarettes, from about 17 y.o. to about 41 y.o. Tobacco smoking status Never [facility] Comment on above: former smoker quit a t age 41, 1 PPD Patient states he sm oked about 1.5 PPD, cigarettes, from about 17 y.o. to about 41 y.o. End: 05-17-1982 History of tobacco use Current smoker [facility] End: 05-17-1982 History of tobacco use Cigarette Smoker [facility] Start: 04-01-2023 Tobacco use and exposure Smokeless tobacco non-user [facility] Start: 04-01-2023 End: 09-27-2024 History of Social function [facility] Start: 1940 Sex Assigned At Not [facility] file [facility] History of tobacco use Passive smoker [facility] Start: 02-12-2024 End: 09-27-2024 Alcoholic beverage intake Current drinker of alcohol (finding) [facility] Start: 12-22-2022 Tobacco Comment Years smoked: 25 [facility] Start: 12-22-2022 Alcohol Comment 1 or 2 drinks/ day, monthly or less; Caffeine: 1 drink/day [facility] Start: 04-07-2024 End: 04-11-2024 Tobacco use and exposure Former smokeless tobacco user [facility] Work Phone: Start: 04-01-2024 End: 09-11-2024 Exposure to SARS-CoV-2 (event) Not sure [facility] Start: 05-11-2024 Gender identity Identifies as male gender (finding) [facility] Work Phone: Start: 05-11-2024 Sexual orientation Heterosexual (fin ding) [facility] Work Phone: Start: 06-14-2024 End: 09-20-2024 Sex Male (finding) [facility] Start: 08-20-2024 End: 09-20-2024 Tobacco smoking status NHIS Never smoked tobacco (finding) [facility] Start: 08-21-2024 SDOH Follow up SDOH Follow up [facility] Work Phone: Sexual Orientation [facility] Medical Equipment Procedure Code Equipment Code Equipment Origin al Text Equipment Identifier Dates Insertion of central venous catheter (CVC) with subcutaneous port for chemotherapy Vascular port/catheter ([id number] [facility] Start: 07-17-2024 End: 05-11-2024 See Instructions , one touch ultra test [...] /State Functional Status Date Assessment Result Facility 09-11-2024 Patient [facility] ionnaire 2 item (PHQ-2) [Reported] [facility] Work Phone: 08-21-2024 Functional status Patient at Baseline [facility] Work Phone: 03-23-2024 Functional Status N/A [facility] 10-21-2023 Functional Status N/A [facility] 09-17-2023 Functional Status N/A [facility] 05-25-2023 Functional Status N/A [facility] 03-10-2023 Functional Status N/A [facility] 02-25-2023 Functional Status N/A [facility] 01-12-2023 Functional Status N/A [facility] 09-22-2022 Functional Status N/A [facility] 05-19-2022 Functional Status N/A [facility] Mental Status Date Assessment Result Facility 08-21-2024 Cognitive function Cognitive Sta tus Patient at Baseline [facility] Work Phone: Clinical Notes 11-29-2021 to 09-27-2024 Veena Adkins, - 09/27/2024 1:30 PM Elyssa Ly MD - 09/11/2024 2:00 PM EDT Note Date & Type Note Facility 09-27-2024 History of Present illness Narrative Images from the original note were not included. Jeremie Bennett 1940 Jeremie Bennett is a 83 y.o. male presents with chief complaint of urgent need for gastrostomy tube HPI: HPI Jeremie completed treatment for throat cancer but is having trouble swallowing. He states it parr when he swallows but he can get some solids and liquids down. SUBJECTIVE: MEDICATIONS: ALLERGIES Current Outpatient Medications Medication Instructions amLODIPine (NORVASC) 5 mg, Daily aspirin 81 mg, Daily vazidqgdsf-puikdhpctylsm-ewlhhx ne 50-325-40 MG tablet 1 tablet, Every 4 hours PRN clopidogrel (PLAVIX) 75 mg, Daily diphenhydrAMINE-acetaminophen (Tylenol PM) 25-500 MG per tablet 1 tablet, Nightly PRN dorzolamide (Trusopt) 2 % ophthalmic solution 1 drop, 3 times daily famotidine (PEPCID) 20 mg, Daily fluticasone (Flonase) 50 MCG/ACT nasal spray 1 spray, Daily furosemide (LASIX) 20 mg, Oral, Daily glucose blood test strip 1 each, As needed irbesartan (AVAPRO) 300 mg, Nightly isosorbide mononitrate ER (IMDUR) 30 mg, Daily Lancets (onetouch ultrasoft) lancets 1 each, As needed latanoprost (Xalatan) 0.005 % ophthalmic solution 1 drop, Nightly loperamide (IMODIUM A-D) 2 mg, 4 times daily PRN metFORMIN XR (GLUCOPHAGE-XR) 500 mg, Oral, 2 times daily Multiple Vitamin (multivitamin) tablet 1 tablet, Daily omega-3 acid ethyl esters (LOVAZA) 1 g, 2 times daily omeprazole (PRILOSEC) 40 mg, Daily before breakfast oxyCODONE (Roxicodone) 5 MG/5ML solution psyllium (Metamucil 3 in 1 Daily Fiber) 400 MG capsule 3 capsules, Daily Rimegepant Sulfate (Nurtec) 75 MG tablet dispersible 1 tab PO prn migraine. rosuvastatin (CRESTOR) 10 mg, Daily sotalol (BETAPACE) 80 mg tiZANidine (Zanaflex) 4 MG tablet TAKE 1/2 TO 1 TABLET BY MOUTH AT BEDTIME zonisamide (ZONEGRAN) 25 mg, Oral, 2 times daily Allergies Allergen Reactions Niacin Itching and Unknown Wound Dressing Adhesive Unknown PAST MEDICAL HISTORY: SOCIAL HISTORY SURGICAL HISTORY: Past Medical History: Diagnosis Date Anemia At risk for falls BMI 32.0-32.9,adult Cataracts Cellulitis of toe of right foot 01/27/2024 Cholelithiasis 2019 Chronic venous insufficiency Diverticulitis Diverticulosis Entrapment of left ulnar nerve 01/27/2024 Entrapment of right ulnar nerve 01/27/2024 Gallstones 04/03/2022 no surgery as yet no surgery as yet GERD (gastroesophageal reflux disease) Glaucoma HTN (hypertension) (CMS/HCC) Hyperlipidemia (CMS/HCC) Hypnotic dependence [...] with diabetic neuropathy (CMS/HCC) Ventricular tachycardia (CMS/HCC) Social History Tobacco Use Smoking status: Former Current packs/day: 1.00 Types: Cigarettes Passive exposure: Past Tobacco comments: Years smoked: 25 Substance Use Topics Alcohol use: Yes Comment: 1 or 2 drinks/day, monthly or less; Caffeine: 1 drink/day Drug use: Never Past Surgical History: Procedure Laterality Date CARDIAC CATHETERIZATION 08/30/2019 CATARACT EXTRACTION Bilateral CERVICAL FUSION 2016 C3-C4-C5 CHOLECYSTECTOMY HERNIA REPAIR 2002 INSERT / REPLACE / REMOVE PACEMAKER 2015 pacemaker insertion OTHER SURGICAL HISTORY 2005 ablation OTHER SURGICAL HISTORY 2007 sphincterotomy MS CHOLECYSTECTOMY 02/2020 Laparoscopic Cholecystectomy - [place] MS IMPLANT ARTIFICIAL SPHINCTER 2017 PROSTATE 2000 TONSILLECTOMY 1970 US GUIDED BIOPSY LYMPH NODE SUPERFICIAL 06/05/2024 US GUIDED BIOPSY LYMPH NODE SUPERFICIAL 06/05/2024 FAMILY HISTORY Family History Problem Relation Name Age of Onset Hypertension Mother Heart disease Mother Stroke Mother Asthma Mother Kidney disease Mother Migraines Mother Other (prostate problem) Father Cancer Father Heart disease Maternal Grandmother Hypertension Maternal Grandmother Hyperlipidemia Maternal Grandmother Cancer Paternal Grandfather Other (stomach problem) Paternal Grandfather REVIEW OF SYMPTOMS: Review of Systems Constitutional: Positive for unexpected weight change. Negative for activity change. HENT: Positive for hearing loss (Bilateral hearing aids) and tinnitus. Negative for voice change. Respiratory: Negative for shortness of breath. Cardiovascular: Negative for chest pain. Gastrointestinal: Negative for abdominal distention, diarrhea, nausea and vomiting. Neurological: Negative for dizziness, seizures and headaches. Psychiatric/Behavioral: Negative. All other systems reviewed and are negative. OBJECTIVE: Visit Vitals BP 94/62 Ht 5' 5 Wt 150 lb BMI 24.96 kg/m Smoking Status Former BSA 1.77 m Physical Exam Vitals reviewed. HENT: Head: Normocephalic. Eyes: Pupils: Pupils are equal, round, and reactive to light. Cardiovascular: Rate and Rhythm: Normal rate and regular rhythm. Pulmonary: Effort: Pulmonary effort is normal. Abdominal: General: Bowel sounds are normal. Palpations: Abdomen is soft. Musculoskeletal: General: Normal range of motion. Skin: General: Skin is warm. Neurological: General: No focal deficit present. Mental Status: He is alert. ASSESSMENT AND PLAN: Assessment/Plan Diagnoses and all orders for this visit: Esophageal dysphagia Jeremie completed his XRT and chemo for throat cancer but now has pain with swallowing. We discussed placement of a PEG tube. I explained the procedure with the risks and benefits. I also explained that the tube can be removed in the future if it is no longer needed. He is in agreement and the procedure has been schedule. I wanted to put him on for this Wednesday but he is on Plavix so we will hold the medication and put him on the OR schedule early next week. documented in this encounter [facility] 09-20-2024 Radiology Diagnostic study note [facility] [address] CT Scan Report Signed Patient: Jeremei Bennett MR#: [id number] : 1940 Acct:[id number] Age/Sex: 83 / M ADM Date: 5 Loc: ER Room: Type: [facility] ER Attending Dr: Copies to: Maru Hayes MD~ Ordering Provider: Maru Hayes MD Date of Service: 09/20/24 CT/CT abdomen pelvis w con: r/o sbo, constipated x few days CT abdomen pelvis w con 09/20/2024 5:42 PM SIGNS AND SYMPTOMS: Lower abdominal pain, constipation TECHNIQUE: Multidetector ct axial images of the abdomen and pelvis were obtainedwith IV contrast. Multiplanar reformats were performed and reviewed to further define anatomy and possible pathology. CT was performed with one or more of thefollowing dose reduction techniques: Automated exposure control, adjustment of the mA and/or kV according to patient size, or use of iterative reconstruction technique. COMPARISON: 03/27/2024 FINDINGS: Lower Chest: Atherosclerotic changes are noted in the thoracic aorta and within the coronary arteries. There is a 5 mm noncalcified nodule in the right costophrenic sulcus. ABDOMEN: Liver: Within normal limits. Bile Ducts: Normal caliber. Gallbladder: Previously removed Pancreas: Within normal limits. Spleen: Within normal limits. Adrenals: Within normal limits. Kidneys: Within normal limits. Pelvis: Reproductive Organs: No pelvic masses. Ureters: Within normal limits. Bladder: Within normal limits. Bowel: There is a moderate to large amount of stool within the colon and rectum consistent with a history of constipation. There are uncomplicated colonic diverticula. Mesenteric Lymph Nodes: No enlarged mesenteric lymph nodes. Peritoneum: No ascites or free air, no fluid collection. Vessels: Atherosclerotic changes are noted in the abdominal aorta and its branches. Retroperitoneum: Within normal limits. Abdominal Wall: Within normal limits. Bones: Degenerative changes are noted in the thoracolumbar spine as well as the hips and sacroiliac joints. CT/CT abdomen pelvis w con IMPRESSION: There is a moderate to large amount of stool within the colon and rectum consistent with a history of constipation. There are uncomplicated colonic diverticula. There is a 5 mm noncalcified nodule in the right costophrenic sulcus. This is unchanged when compared to the prior exam. Follow-up per Fleischner Society guidelines is recommended. Impression dictated by: Rafi Gordon M.D. 09/20/2024 8:03 PM Dictation Location: [facility]--17 Transcribed By: [facility] 09/20/242002 Dictated By: Rafi Gordon II, MD 09/20/241947 Signed By: 09/20/242002 [facility] Work Phone: 09-20-2024 Hospital Discharge instructions Additional Instructions Please return to emergency department for any new or worsening symptoms including any worsening abdominal pain, vomiting, fever. Continue MiraLAX as directed. Follow-up with your family physician within the next 3 to 5 days. You were found to have a lung nodule that needs follow-up with family physician as may require further testing/monitoring to rule out evidence of possible cancer. [facility] Work Phone: 09-14-2024 Note Patient Education Nutrition BMI for Adults [...] for Disease Control and Prevention: cdc.gov ??? [employer] Heart Association: heart.org ??? National Heart, Lung, and Blood [place]: nhlbi.nih.gov This information is not intended to replace advice given to you by your health care provider. Make sure you discuss any questions you have with your health care provider. Document Revised: 01/21/2023 Document Reviewed: 01/14/2023 [employer] Patient Education ? 2023 [facility] 09-11-2024 History of Present illness Narrative HEAD AND NECK SURGERY FOLLOW UP [facility] Referring Provider: Dr. Ham HPI I had the pleasure of seeing Jeremie Bennett as a follow up today. Spouse accompanies him and assists with history and treatment planning. Treatment history: - FNA biopsy right enlarged cervical lymph node, p16+ SCC - PET with FDG avidity bilateral cervical nodes, left mandible - 04/07/24 in-office biopsy left mandible irregularity, benign tissue and inflammation - 05/11/24 direct laryngoscopy with biopsy of right base of tongue lesion, pathology p16+ SCC - 08/21/24 completed concurrent chemoradiation with Dr Gray (rad onc) and Dr Lamas (med onc) at [facility] after completion of chemoradiation treatment earlier this month. Weight down to 149 lbs (prior 170 lbs). Swallowing liquids, saw STUDENT EDUCATION SPECIALIST during treatment, not recently. Had pacemaker replaced. Port in place. Overall feels well, low energy Medical history notable for ventricular tachycardia with a pacemaker in place, CAD s/p stents, on Plavix, DM2, HLD, HTN. Tobacco use: The patient reports that he quit smoking about 42 years ago. His smoking use included cigarettes. He has quit using smokeless tobacco. Alcohol Use: The patient reports current alcohol use of about 2.0 standard drinks of alcohol per week. Physical Examination Vitals: Temp 36 C (96.8 F) Ht 1.651 m (5' 5 ) Wt 67.7 kg (149 lb 4.8 oz) BMI 24.84 kg/m General: Examination reveals a thin patient in no apparent distress. The patient has no audible dysphonia, stridor or airway distress. Oral Cavity: The patient is able to open the mouth widely without trismus. The floor of mouth and oral tongue are soft, and no mucosal abnormalities are noted on the lips or within the oral cavity. The oral tongue is fully mobile and midline on protrusion. Edentulous, no lesions Oropharynx: There are no mucosal abnormalities noted within the oropharynx. The soft palate elevates symmetrically, the tonsils and base of tongue are normal to inspection and palpation. Thick mucous on uvula and posterior pharynx Salivary glands: There are no palpable masses of the parotid or submandibular glands. Neuro: Cranial nerves 2-12 are without obvious abnormality. Neck: The neck is soft and symmetric. Mild radiation changes, nontender. No enlarged lymph nodes Procedure Note: Diagnostic Flexible Laryngoscopy (93466) Indication: patient symptoms requiring evaluation of pharyngeal/laryngeal/hypopharyn geal structures Surgeon: Mary Ly MD Informed Consent: The procedure, risks, and [...] without evidence of lesions, ulcerations or masses. Expected post treatment changes, thick mucous throughout base of tongue, epiglottis mild thickening, TVF adduct and abduct fully, airway widely patent Attestation: I performed the procedure in its entirety, or was present with the resident/fellow for the entirety of the procedure. DATA REVIEWED: Radiology: I personally reviewed the PET from 03/29/24 which demonstrated FDG avidity in bilateral lymph nodes and left mandible. CT neck with incidental right parotid nodule, enlarged right level 2b and left level 2a lymph nodes, stenosis of left ICA. Review of pathology: I reviewed the pathology from 05/11/24 shwoing p16+ scc, pathology from 04/07/24 showing benign tissue. 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, now s/p completion of chemoradiation treatment at [facility] August 2024 - Doing well overall, scope and exam findings as expected - Recommend continued STUDENT EDUCATION SPECIALIST therapy, he will do this closer to home - Discussed imaging, he has PET scheduled in November - Will need post-treatment NavDx either now or at next appointment - Discussed NCCN guidelines and ongoing surveillance - Follow up with me in 2-3 months after PET, certainly sooner if any issues Mary Ly MD documented in this encounter [facility] Work Phone: 08-21-2024 Discharge summary [facility] 08-21-2024 Progress note [facility] 08-21-2024 Consult note Note Date/Time August 21, 2024 11:10am [facility] [address] [place] [address] Infect. Disease Consult Note Signed Patient: Jeremie Bennett MR#: [id number] : 1940 Acct:[id number] Age/Sex: 83 / M Adm Date: 5 Loc: Room: [address] [place] [address] Type: ADM IN Attending Dr: Zeke Brennan MD Copies to: MD Yash Fam MD Samuel E Ross MD~ HPI Data of Consult Consult date: 08/21/24 Requesting Physician: Zeke Brennan MD Primary Care Provider: Demetrius Cooper MD Consult Narrative History of present illness: Mr. Bennett is a 83 year old male who was admitted after a few days of weakness and a low-grade fever that occurred at home. 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 Patient generally states he coughs up phlegm but has not noticed any change in his. There has been no nausea or vomiting or abdominal pain. He denies urinary symptoms as well as any type of new skin rash. He obviously has radiation changes on his neck that are stable. Patient is currently on Docetaxol for his chemo. Workup in the emergency room included a normal white count negative UA and stable chest x-ray with bibasilar airspace opacities seen previously. Respiratory panel was negative. Broad-spectrum antibiotics were given. I was consulted for fever. Patient Tmax yesterday afternoon of 100.5. He was given vancomycin and Zosyn yesterday and this morning Dr. Brennan changed him to ceftriaxone to be dosed tonight at 10 PM CC: Zeke Brennan MD [facility] Medical History Pacemaker Prostate cancer surgery Neuropathy Vertigo Migraine Arthritis Glaucoma Pancreatic cyst Diverticulitis V tach 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 GERD (gastroesophageal reflux disease) Arthritis Malignant neoplasm of floor of mouth Vitamin D deficiency, unspecified Obstructive sleep apnea Hypercholesteremia Hernia Hiatal Hernia Excessive daytime sleepiness Essential hypertension DM (diabetes mellitus) Surgical History History of cervical spinal surgery History of tonsillectomy History of phacoemulsification of cataract of both eyes with intraocular lens implantation History of inguinal hernia repair, bilateral History of cardiac radiofrequency ablation (RFA) History of biopsy Right base of tongue biopsy H/O glossectomy History of bronchoscopy History of laryngoscopy History of prostatectomy History of neck surgery History of cholecystectomy History of heart artery stent x4 Family History Father Glaucoma Mother Heart disease [facility] of [facility]: Diagnosed with Stroke Hypertension Emphysema lung ESRD (end stage renal disease) Sister Cancer [facility] Problem: Diagnosed with Cancer Lymphoma Social History Smoking Status: Former smoker Tobacco Type: cigarettes Substance Use Type: None Substance Abuse Comment: rare alcohol use Allergies and Medications Allergies and Active Meds Allergies adhesive Allergy (Unknown, Verified 08/20/24 21:27) rash niacin (Niaspan Extended-Release) Allergy (Unknown, Verified 08/20/24 21:27) hives Active Medications Albuterol (Albuterol Hfa 60 Puff/8 Gram Inhaler) 1 puff INHALATION Q4HR PRN PRN Reason: shortness of breath or wheezin Stop: 08/20/25 22:57 Aspirin (Aspirin 81 Mg Tab.Chew) 81 mg PO DAILY CINTHIA Stop: 08/21/25 08:59 Last Admin: 08/21/24 09:01 Dose: 81 mg Atorvastatin Calcium (Atorvastatin 20 Mg Tablet) 20 mg PO QPM CINTHIA Stop: 08/21/25 20:59 Clopidogrel Bisulfate (Clopidogrel Bisulfate 75 Mg Tablet) 75 mg PO DAILY CINTHIA Stop: 08/21/25 08:59 Last Admin: 08/21/24 09:00 Dose: 75 mg Dorzolamide HCl (Dorzolamide 2% Op Soln 200 Drops/10 Ml Bottle) 1 drops EYE-BOTH BID CINTHIA Stop: 08/21/25 08:59 Last Admin: 08/21/24 09:04 Dose: 1 drops Famotidine (Famotidine 20 Mg Tablet) 20 mg PO QPM [facility] Stop: 08/21/25 20:59 Fentanyl (Fentanyl Patch 12 Mcg/Hour Patch.Td72) 12 mcg TRANSDERML Q72HR [facility]; Protocol Fluticasone Propionate (Fluticasone Propionate Geneva 120 Geneva/16 Gm Bottle) 2 spray INTRANASAL QAM [facility] Stop: 08/21/25 08:59 Last Admin: 08/21/24 09:02 Dose: 2 spray Ceftriaxone Sodium (Rocephin) 1 gm in 50 mls @ 100 mls/hr IV QHS [facility] Isosorbide Mononitrate (Isosorbide Mononitrate 24hr Er 30 Mg Tab.Er.24h) 30 mg PO QAM [facility] Stop: 08/21/25 08:59 Last Admin: 08/21/24 09:00 Dose: 30 mg Latanoprost (Latanoprost 0.005% Op Soln 50 Drops/2.5 Ml Bottle) 1 drops EYE-BOTH QPM [facility] Stop: 08/21/25 20:59 Lidocaine/Prilocaine (Lidocaine-Prilocaine Cr 2.5-2.5% 5 Gm Tube) 1 applic TOPICAL ONCE PRN PRN Reason: pain Stop: 08/20/25 21:58 Metformin HCl (Metformin 500 Mg Tablet) 500 mg PO DAILY@0800 [facility] Stop: 08/21/25 07:59 Last Admin: 08/21/24 09:00 Dose: 500 mg Multi-Ingredient Mouthwash/Gargle (Magic Mouthwash With Lidocaine) 10 ml PO QIDPRN PRN Reason: mucositis Stop: 08/20/25 22:46 Nystatin (Nystatin Susp 500,000 Unit/5 Ml Udc) 500,000 unit PO QID [facility] Stop: 08/21/25 08:59 Last Admin: 08/21/24 09:01 Dose: 500,000 unit Olanzapine (Olanzapine 2.5 Mg Tablet) 2.5 mg PO BID [facility] Stop: 08/21/25 08:59 Last Admin: 08/21/24 09:00 Dose: 2.5 mg Ondansetron HCl (Ondansetron Odt 4 Mg Tab.Rapdis) 8 mg PO Q8HR PRN PRN Reason: nausea and vomiting Stop: 08/20/25 22:49 Oxycodone HCl (Oxycodone Ir 5 Mg Tablet) 10 mg PO Q4HR PRN PRN Reason: pain Last Admin: 08/21/24 09:01 Dose: 10 mg Pantoprazole Sodium (Pantoprazole 40 Mg Tablet.Dr) 40 mg PO BID [facility] Stop: 08/21/25 08:59 Last Admin: 08/21/24 09:00 Dose: 40 mg Rivaroxaban (Rivaroxaban 10 Mg Tablet) 10 mg PO QHS [facility] Stop: 08/21/25 21:59 Sennosides (Sennosides 8.6 Mg Tablet) 8.6 mg PO BID PRN PRN Reason: constipation Stop: 08/20/25 21:58 Last Admin: 08/21/24 09:00 Dose: 8.6 mg Silver Sulfadiazine (Silver Sulfadiazine 1% Cream 400 Gm Jar) 1 applic TOPICAL BID [facility] Stop: 08/21/25 08:59 Last Admin: 08/21/24 09:07 Dose: 1 applic Sodium Chloride (Sodium Chloride 0.9 % 10 Ml Syringe) 0 ml IV-PUSH PRN PRN PRN Reason: Flush Stop: 08/20/25 16:56 Last Admin: 08/20/24 17:20 Dose: 10 ml Sodium Chloride (Sodium Chloride 0.9 % 10 Ml Syringe) 10 ml IV-PUSH Q8H [facility] Stop: 08/20/25 19:44 Last Admin: 08/21/24 03:06 Dose: Not Given Sotalol HCl (Sotalol 80 Mg Tablet) 40 mg PO BID [facility] Stop: 08/21/25 08:59 Last Admin: 08/21/24 09:01 Dose: 40 mg Tizanidine HCl (Tizanidine 4 Mg Tablet) 4 mg PO QPM [facility] Stop: 08/21/25 20:59 Zonisamide (Zonisamide 25 Mg Capsule) 25 mg PO BID [facility] Stop: 08/21/25 08:59 Last Admin: 08/21/24 09:00 Dose: 25 mg Exam Physical Exam Vital Signs: Temp Pulse Resp BP Pulse Ox O2 Del Method 98.2 F 56 L 18 159/73 H 95 Room Air 08/21/24 08:00 08/21/24 08:00 08/21/24 08:00 08/21/24 08:00 08/21/24 08:00 08/21/24 08:00 Const General: cooperative, comfortable and no acute distress Orientation: oriented x3 HEENT Head: normal to inspection Nose: external nose normal Face and sinus: normal facial exam Mouth: oral mucosae normal Eyes General: appearance normal, both eyes and all related structures Neck Other: Skin changes on neck consistent with XRT no sign of infection Chest Chest palpation & inspection: abnormal inspection of the chest (Right chest wallport accessed nontender) Resp Effort & Inspection: normal respiratory effort Auscultation: clear to auscultation bilaterally Cardio Palpation: normal PMI Rate: regular rate Rhythm: regular rhythm GI Inspection: normal to inspection Palpation: soft and nontender Auscultation: normal bowel sounds Skin General: rashes and/or lesions noted, no erythema and other (nect XRT changes) Neuro General: patient oriented x3 Extrem General: normal to inspection Results - Infectious Disease Labs 08/21/24 04:05 08/21/24 04:05 Labs: 08/20/24 12:20: BUN 16, Creatinine 0.85 08/20/24 17:20: Corrected WBC 7.4, Uncorrected WBC Count 7.4 08/21/24 04:05: Corrected WBC 6.2, Uncorrected WBC Count 6.2, BUN 10, Creatinine0.75 Laboratory Tests 08/20/24 08/20/24 12:20 17:20 ESR 42 H C-Reactive Prot, Quant 3.3 H Microbiology Results Microbiology Narrative: 08/20/24 17:32 Blood Culture - Pending Blood - Other 08/20/24 21:51 Blood Culture - Pending Blood - Right Antecubital 08/20/24 17:48 Respiratory Panel (PCR) - Respiratory (Upper) Panel, PCR Final 08/20/24-2009 Adenovirus Not Detected Coronavirus 229E Not Detected Coronavirus HKU1 Not Detected Coronavirus NL63 Not Detected Coronavirus OC43 Not Detected Coronavirus SARS-CoV-2 Not Detected Human Metapneumovirus Not Detected Human Rhino/Enterovirus Not Detected Influenza A Not Detected Influenza A tests for the following clinically significant subtypes: - Influenza A - Influenza A H1 - Influenza A H1 2009 - Influenza A H3 Influenza B Not Detected Parainfluenza Virus 1 Not Detected Parainfluenza Virus 2 Not Detected Parainfluenza Virus 3 Not Detected Parainfluenza Virus 4 Not Detected Resp. Syncytial Virus Not Detected Bordetella parapertussis Not Detected Bordetella pertussis-ptxP Not Detected Chlamydia pneumoniae Not Detected Mycoplasma pneumoniae Not DetectedFinal Nasopharyngeal Imaging and Cardiology Status: report viewed by me Results Comments: CT CHEST: IMPRESSION: Continued basilar atelectasis. Subcentimeter groundglass nodular density left lower lobe. A&P - Infectious Disease (1) Fever: (2) Immunosuppression: Plan Admitted for weakness and fever and is on chemotherapy for his diagnosis of squamous cell cancer. Markers of inflammation slightly elevated but white countactually normal with a slightly elevated MDW. The cultures remain negative. Respiratory panel was negative. UA not impressive. Hepatic function panel essentially normal. CT of the chest as above. Patient without abdominal complaints so no CT scanning of the abdomen ordered. Again patient had a Tmax of 100.5 yesterday has been afebrile since. He empirically got vancomycin and Zosyn yesterday. Ceftriaxone was ordered this morning to be given tonight by Dr. Brennan. Clinical exam without acute findings suggesting of potential infectious source but given his underlying immunosuppression and his right chestwall port he does clearly have potential sources. Will continue to monitor his temperature as well as follow-up on cultures. Documented By: Yash Thomas MD 08/21/24 105 Signed By: <Electronically signed by MD Yash Thomas> 08/21/[address] [facility] Work Phone: 1(349) 354-624204-07-[address] [address] Infect. Disease Consult Note Signed Patient: Jeremie Benentt MR#: [id number] : 1940 Acct:[id number] Age/Sex: 83 / M Adm Date: 5 Loc: 3T Room: [address] [place] [address] Type: ADM IN Attending Dr: Zeke Brennan MD Copies to: MD Yash Fam MD Samuel E Ross MD~ HPI Data of Consult Consult date: 08/21/24 Requesting Physician: Zeke Brennan MD Primary Care Provider: Demetrius Cooper MD Consult Narrative History of present illness: Mr. Bennett is a 83 year old male who was admitted after a few days of weakness and a low-grade feverthat occurred at home. 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 Patient generally states he coughs up phlegm but has not noticed any change in his. There has been no nausea or vomiting or abdominal pain. He denies urinary symptoms as well as any type of new skin rash. He obviously has radiation changes on his neck that are stable. Patient is currently on Docetaxol for his chemo. Workup in the emergency room included a normal white count negative UA and stable chest x-ray with bibasilar airspace opacities seen previously. Respiratory panel was negative. Broad-spectrum antibiotics were given. I was consulted for fever. Patient Tmax yesterday afternoon of 100.5. He was given vancomycin and Zosyn yesterday and this morning Dr. Brennan changed him to ceft riaxone to be dosed tonight at 10 PM CC: Zeke Brennan MD [facility] Medical History Pacemaker Prostate cancer surgery Neuropathy Vertigo Migraine Arthritis Glaucoma Pancreatic cyst Diverticulitis V tach 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 GERD (gastroesophageal reflux disease) Arthritis Malignant neoplasm of floor of mouth Vitamin D deficiency, unspecified Obstructive sleep apnea Hypercholesteremia Hernia Hiatal Hernia Excessive daytime sleepiness Essential hypertension DM (diabetes mellitus) Surgical History History of cervical spinal surgery History of tonsillectomy History of phacoemulsification of cataract of both eyes with intraocular lens implantation History of inguinal hernia repair, bilateral History of cardiac radiofrequency ablation (RFA) History of biopsy Right base of tongue biopsy H/O glossectomy History of bronchoscopy History of laryngoscopy History of prostatectomy History of neck surgery History of cholecystectomy History of heart artery stent x4 Family History Father Glaucoma Mother Heart disease History of stroke [facility] Problem: Diagnosed with Stroke Hypertension Emphysema lung ESRD (end stage renal disease) Sister Cancer [facility] Problem: Diagnosed with Cancer Lymphoma Social History Smoking Status: Former smoker Tobacco Type: cigarettes Substance Use Type: None Substance Abuse Comment: rare alcohol use Allergies and Medications Allergies and Active Meds Allergies adhesive Allergy (Unknown, Verified 08/20/24 21:27) rash niacin (Niaspan Extended-Release) Allergy (Unknown, Verified 08/20/24 21:27) hives Active Medications Albuterol (Albuterol Hfa 60 Puff/8 Gram Inhaler) 1 puff INHALATION Q4HR PRN PRN Reason: shortness of breath or wheezin Stop: 08/20/25 22:57 Aspirin (Aspirin 81 Mg Tab.Chew) 81 mg PO DAILY [facility] Stop: 08/21/25 08:59 Last Admin: 08/21/24 09:01 Dose: 81 mg Atorvastatin Calcium (Atorvastatin 20 Mg Tablet) 20 mg PO QPM [facility] Stop: 08/21/25 20:59 Clopidogrel Bisulfate (Clopidogrel Bisulfate 75 Mg Tablet) 75 mg PO DAILY [facility] Stop: 08/21/25 08:59 Last Admin: 08/21/24 09:00 Dose: 75 mg Dorzolamide HCl (Dorzolamide 2% Op Soln 200 Drops/10 Ml Bottle) 1 drops EYE-BOTH BID [facility] Stop: 08/21/25 08:59 Last Admin: 08/21/24 09:04 Dose: 1 drops Famotidine (Famotidine 20 Mg Tablet) 20 mg PO QPM [facility] Stop: 08/21/25 20:59 Fentanyl (Fentanyl Patch 12 Mcg/Hour Patch.Td72) 12 mcg TRANSDERML Q72HR [facility]; Protocol Fluticasone Propionate (Fluticasone Propionate Geneva 120 [place]/16 Gm Bottle) 2 [facility] [place] [facility] Stop: 08/21/25 08:59 Last Admin: 08/21/24 09:02 Dose: 2 spray Ceftriaxone Sodium (Rocephin) 1 gm in 50 mls @ 100 mls/hr IV QHS [facility] Isosorbide Mononitrate (Isosorbide Mononitrate 24hr Er 30 Mg Tab.Er.24h) 30 mg PO QAM [facility] Stop: 08/21/25 08:59 Last Admin: 08/21/24 09:00 Dose: 30 mg Latanoprost (Latanoprost 0.005% Op Soln 50 Drops/2.5 Ml Bottle) 1 drops EYE-BOTH QPM [facility] Stop: 08/21/25 20:59 Lidocaine/Prilocaine (Lidocaine-Prilocaine Cr 2.5-2.5% 5 Gm Tube) 1 applic TOPICAL ONCE PRN PRN Reason: pain Stop: 08/20/25 21:58 Metformin HCl (Metformin 500 Mg Tablet) 500 mg PO DAILY@0800 [facility] Stop: 08/21/25 07:59 Last Admin: 08/21/24 09:00 Dose: 500 mg Multi-Ingredient Mouthwash/Gargle (Magic Mouthwash With Lidocaine) 10 ml PO QIDPRN PRN Reason: mucositis Stop: 08/20/25 22:46 Nystatin (Nystatin Susp 500,000 Unit/5 Ml Udc) 500,000 unit PO QID [facility] Stop: 08/21/25 08:59 Last Admin: 08/21/24 09:01 Dose: 500,000 unit Olanzapine (Olanzapine 2.5 Mg Tablet) 2.5 mg PO BID [facility] Stop: 08/21/25 08:59 Last Admin: 08/21/24 09:00 Dose: 2.5 mg Ondansetron HCl (Ondansetron Odt 4 Mg Tab.Rapdis) 8 mg PO Q8HR PRN PRN Reason: nausea and vomiting Stop: 08/20/25 22:49 Oxycodone HCl (Oxycodone Ir 5 Mg Tablet) 10 mg PO Q4HR PRN PRN Reason: pain Last Admin: 08/21/24 09:01 Dose: 10 mg Pantoprazole Sodium (Pantoprazole 40 Mg Tablet.Dr) 40 mg PO BID [facility] Stop: 08/21/25 08:59 Last Admin: 08/21/24 09:00 Dose: 40 mg Rivaroxaban (Rivaroxaban 10 Mg Tablet) 10 mg PO QHS [facility] Stop: 08/21/25 21:59 Sennosides (Sennosides 8.6 Mg Tablet) 8.6 mg PO BID PRN PRN Reason: constipation Stop: 08/20/25 21:58 Last Admin: 08/21/24 09:00 Dose: 8.6 mg Silver Sulfadiazine (Silver Sulfadiazine 1% Cream 400 Gm Jar) 1 applic TOPICAL BID [facility] Stop: 08/21/25 08:59 Last Admin: 08/21/24 09:07 Dose: 1 applic Sodium Chloride (Sodium Chloride 0.9 % 10 Ml Syringe) 0 ml IV-PUSH PRN PRN PRN Reason: Flush Stop: 08/20/25 16:56 Last Admin: 08/20/24 17:20 Dose: 10 ml Sodium Chloride (Sodium Chloride 0.9 % 10 Ml Syringe) 10 ml IV-PUSH Q8H [facility] Stop: 08/20/25 19:44 Last Admin: 08/21/24 03:06 Dose: Not Given Sotalol HCl (Sotalol 80 Mg Tablet) 40 mg PO BID [facility] Stop: 08/21/25 08:59 Last Admin: 08/21/24 09:01 Dose: 40 mg Tizanidine HCl (Tizanidine 4 Mg Tablet) 4 mg PO QPM [facility] Stop: 08/21/25 20:59 Zonisamide (Zonisamide 25 Mg Capsule) 25 mg PO BID [facility] Stop: 08/21/25 08:59 Last Admin: 08/21/24 09:00 Dose: 25 mg Exam Physical Exam Vital Signs: Temp Pulse Resp BP Pulse Ox O2 Del Method 98.2 F 56 L 18 159/73 H 95 Room Air 08/21/24 08:00 08/21/24 08:00 08/21/24 08:00 08/21/24 08:00 08/21/24 08:00 08/21/24 08:00 Const General: cooperative, comfortable and no acute distress Orientation: oriented x3 HEENT Head: normal to inspection Nose: external nose normal Face and sinus: normal facial exam Mouth: oral mucosae normal Eyes General: appearance normal, both eyes and all related structures Neck Other: Skin changes on neck consistent with XRT no sign of infection Chest Chest palpation & inspection: abnormal inspection of the chest (Right chest wallport accessed nontender) Resp Effort & Inspection: normal respiratory effort Auscultation: clear to auscultation bilaterally Cardio Palpation: normal PMI Rate: regular rate Rhythm: regular rhythm GI Inspection: normal to inspection Palpation: soft and nontender Auscultation: normal bowel sounds Skin General: rashes and/or lesions noted, no erythema and other (nect XRT changes) Neuro General: patient oriented x3 Extrem General: normal to inspection Results - Infectious Disease Labs 08/21/24 04:05 08/21/24 04:05 Labs: 08/20/24 12:20: BUN 16, Creatinine 0.85 08/20/24 17:20: Corrected WBC 7.4, Uncorrected WBC Count 7.4 08/21/24 04:05: Corrected WBC 6.2, Uncorrected WBC Count 6.2, BUN 10, Creatinine0.75 Laboratory Tests 08/20/24 08/20/24 12:20 17:20 ESR 42 H C-Reactive Prot, Quant 3.3 H Microbiology Results Microbiology Narrative: 08/20/24 17:32 Blood Culture - Pending Blood - Other 08/20/24 21:51 Blood Culture - Pending Blood - Right Antecubital 08/20/24 17:48 Respiratory Panel (PCR) - Respiratory (Upper) Panel, PCR Final 08/20/24 Adenovirus Not Detected Coronavirus 229E Not Detected Coronavirus HKU1 Not Detected Coronavirus NL63 Not Detected Coronavirus OC43 Not Detected Coronavirus SARS-CoV-2 Not Detected Human Metapneumovirus Not Detected Human Rhino/Enterovirus Not Detected Influenza A Not Detected Influenza A tests for the following clinically significant subtypes: - Influenza A - Influenza A H1 - Influenza A H1 2009 - Influenza A H3 Influenza B Not Detected Parainfluenza Virus 1 Not Detected Parainfluenza Virus 2 Not Detected Parainfluenza Virus 3 Not Detected Parainfluenza Virus 4 Not Detected Resp. Syncytial Virus Not Detected Bordetella parapertussis Not Detected Bordetella pertussis-ptxP Not Detected Chlamydia pneumoniae Not Detected Mycoplasma pneumoniae Not DetectedFinal Nasopharyngeal Imaging and Cardiology Status: report viewed by me Results Comments: CT CHEST: IMPRESSION: Continued basilar atelectasis. Subcentimeter groundglass nodular density left lower lobe. A&P - Infectious Disease (1) Fever: (2) Immunosuppression: Plan Admitted for weakness and fever and is on chemotherapy for his diagnosis of squamous cell cancer. Markers of inflammation slightly elevated but white countactually normal with a slightly elevated MDW. The cultures remain negative. Respiratory panel was negative. UA not impressive. Hepatic function panel essentially normal. CT of the chest as above. Patient without abdominal complaints so no CT scanning of the abdomen ordered. Again patient had a Tmax of 100.5 yesterday has been afebrile since. He empirically got vancomycin and Zosyn yesterday. Ceftriaxone was ordered this morning to be given tonight by Dr. Brennan. Clinical exam without acute findings suggesting of potential infectious source but given his underlying immunosuppression and his right chestwall port he does clearly have potential sources. Will continue to monitor his temperature as well as follow-up on cultures. Documented By: Yash Thomas MD 08/21/24 1053 Signed By: 08/21/24 1110 [facility]04-07-2025 Radiology Diagnostic study note [facility] Main [place] [address] [place] [address] CT Scan Report Signed Patient: Jeremie Bennett MR#: [id number] : 1940 Acct:[id number] Age/Sex: 83 / M ADM Date: 5 Loc: Room: [address] [place] [address] Type: ADM IN Attending Dr: Jaiden Nance MD Copies to: Jaiden Nance MD~ Ordering Provider: Jaiden Nance MD Date of Service: 08/20/24 CT/CT chest wo con: Fever, rule out pneumonia CT Chest without contrast TECHNIQUE: Axial imaging with 2-D reconstruction. The CT exam was performed using one or more the following dose reduction techniques: Automated exposure control, adjustment of the MA and/or Kv according to patient size, or use of theiterative reconstruction technique. History: Cough and fever. History of throat cancer. Recent chemotherapy and radiation. COMPARISON: None THYROID: Unremarkable TRACHEA AND BRONCHI: Patent ESOPHAGUS: Unremarkable. HEART: Cardiomegaly PERICARDIAL EFFUSION: None CORONARY ARTERY CALCIFICATION: Present MEDIASTINUM: No adenopathy. No pneumoperitoneum. No mediastinal hematoma. PULMONARY ADAM: No hilar mass or adenopathy is seen. THORACIC AORTA Unremarkable LUNG NODULE subcentimeter groundglass pulmonary nodule left lower lobe. May represent inflammatory findings. LUNGS: Mild atelectasis. PLEURAL EFFUSION: None PNEUMOTHORAX: No pneumothorax seen. CHEST WALL: No abnormality AXILLA:Unremarkable BONY STRUCTURES Intact UPPER ABDOMEN: Cholecystectomy CT/CT chest wo con IMPRESSION: Continued basilar atelectasis. Subcentimeter groundglass nodular density left lower lobe. Impression dictated by: Christian Melton M.D.08/21/2024 5:58 AM Dictation Location: [facility]--20 Transcribed By: [facility] 08/21/24 0558 Dictated By: Christian Melton DO 08/21/24 0555 Signed By: 08/21/24 0558 [facility]03-26-2025 Progress note Author Debora Wild [facility] Note Date/Time August 09, 2024 10: 25am [facility] [address] [place] [address] Palliative Medicine Encounter Patient: Jeremie Bennett MR#: [id number] : 1940 Acct:[id number] Age/Sex: 83 / M Copies to: RAYSHAWN Engle MD~ HPI Date of Visit Date of Visit: 08/09/2024 Chief Complaint: Jeremie is here for one week follow up at time of radiation. He was started on Fentanyl patch 12 mcg and to continue Oxycodone 5mg/5ml every 4-6 hours PRN He was also treated for thrush at time of last office visit He has one more chemo tomorrow and 8 more radiation sessions HPI: Jeremie is seen and examined; interim period and pertinent symptoms reviewed below and detailed in ESAS: Pain control is ok with fentanyl 12 mcg and oxycodone 10 mg/10 ml PRN, pain is tolerable enough to swallow food and liquids Nausea has increased and this is limiting intake, weight down a couple pounds over the past week, no emesis; taking both zofran and compazine TID Had diarrhea over the weekend, normal BM yesterday Experiencing lots of fatigue, sleeps intermittently during the day in his chair,sleeps in bed during the night Has lots of phlegm in the throat but is able to expectorate, pharyngeal secretions do not cause gagging or nausea Last chemo tomorrow, 8 remaining radiation fractions to go Intake Allergies adhesive Allergy (Unknown, Verified 08/09/24 09:31) rash niacin (Niaspan Extended-Release) Allergy (Unknown, Verified 08/09/24 09:31) hives Home Medications ?Medication ?Instructions ?Recorded ?Confirmed amlodipine 5 mg tablet 5 mg PO QAM 07/27/23 08/09/24 clopidogrel 75 mg tablet 75 mg PO DAILY 07/27/23 08/09/24 dorzolamide 2 % eye drops 1 drp ophthalmic (eye) BID 07/27/23 08/09/24 famotidine 20 mg tablet 20 mg PO QPM 07/27/23 08/09/24 furosemide 20 mg tablet 20 mg PO QAM 07/27/23 08/09/24 irbesartan 300 mg tablet 300 mg PO QAM 07/27/23 08/09/24 latanoprost 0.005 % eye drops 1 drp ophthalmic (eye) QPM 07/27/23 08/09/24 rosuvastatin 10 mg tablet 10 mg PO QPM 07/27/23 08/09/24 sotalol 80 mg tablet 40 mg PO BID 07/27/23 08/09/24 tizanidine 4 mg tablet 4 mg PO QPM 07/27/23 08/09/24 zonisamide 25 mg capsule 25 mg PO BID 07/27/23 08/09/24 albuterol sulfate 90 mcg/actuation 1 inh inhalation Q4-6H PRN 06/14/24 08/09/24 breath activated powder inhaler shortness of breath or wheezing aspirin 81 mg chewable tablet 81 mg PO DAILY 06/14/24 08/09/24 bygruax-cykjrbnjhtnja-earvgtan 250 1 tab PO Q4-6H PRN pain 06/14/24 08/09/24 mg-250 mg-65 mg tablet (Excedrin Migraine) diphenhydramine 25 2 tab PO QHS PRN sleep 06/14/24 08/09/24 mg-acetaminophen 500 mg tablet (Tylenol PM Extra Strength) metformin 500 mg tablet 500 mg PO QAM 06/14/24 08/09/24 mometasone 0.1 % topical cream 1 applic topical DAILY #45 grams 06/14/24 08/09/24 multivitamin (Multiple Vitamins 1 tab PO DAILY 06/14/24 08/09/24 tablet) omeprazole 40 mg capsule,delayed 40 mg PO QAM 06/14/24 08/09/24 release ondansetron 8 mg disintegrating 8 mg PO Q8HR PRN nausea and 06/14/24 08/09/24 tablet vomiting #30 tabs fluticasone propionate 50 2 spray intranasal QAM 06/22/24 08/09/24 mcg/actuation nasal spray,suspension psyllium husk 0.4 gram capsule 0.4 g PO DAILY 06/22/24 08/09/24 (Fiber (psyllium husk)) Magic Mouthwash w/Lidocaine 240 mL 10 ml PO QID PRN mucositis #240 mL 07/06/24 08/09/24 Bottle 240 mL bottle doxycycline monohydrate 100 mg 100 mg PO BID 07/12/24 08/09/24 capsule lidocaine-prilocaine 2.5 %-2.5 % 2 g topical ONCE PRN pain #30 grams 07/13/24 08/09/24 topical cream Magic Mouthwash w/Lidocaine 240 mL 10 ml PO QID PRN mucositis #240 mL 07/19/24 08/09/24 Bottle 240 mL bottle isosorbide mononitrate 30 mg 30 mg PO QAM 07/20/24 08/09/24 tablet,extended release 24 hr fentanyl 12 mcg/hr transdermal 1 patch transdermal Q72HR 15 days 08/02/24 08/09/24 patch #5 ea lactulose 10 gram/15 mL oral 10 g (15 mL) PO DAILY PRN 08/02/24 08/09/24 solution constipation 30 days #450 mL nystatin 100,000 unit/mL oral 400,000 unit (4 mL) PO QID oral 08/02/24 08/09/24 suspension thrush 14 days #224 mL sennosides 8.6 mg tablet 8.6 mg PO BID PRN constipation 30 08/02/24 08/09/24 (Black-Draught Lax-Senna) days #60 tabs clotrimazole 10 mg joyce 10 mg mucous membrane 5XDAILY 08/03/24 08/09/24 thrush 14 days #70 tabs oxycodone 5 mg/5 mL oral solution 5 mg (5 mL) PO Q4-6H PRN pain 15 08/04/24 08/09/24 days #250 mL olanzapine 2.5 mg tablet 2.5 mg PO BID #30 tabs 08/09/24 Is patient having pain?: Yes [facility] Medical History (Updated 08/09/24 @ 09:38 by Viola Adan [facility]) Pacemaker Prostate cancer surgery Neuropathy Vertigo Migraine Arthritis Glaucoma Pancreatic cyst Diverticulitis V tach 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 GERD (gastroesophageal reflux disease) Arthritis Malignant neoplasm of floor of mouth Vitamin D deficiency, unspecified Obstructive sleep apnea Hypercholesteremia Hernia Hiatal Hernia Excessive daytime sleepiness Essential hypertension DM (diabetes mellitus) Surgical History (Updated 07/24/24 @ 13:52 by Niki Snow) History of cervical spinal surgery History of tonsillectomy History of phacoemulsification of cataract of both eyes with intraocular lens implantation History of inguinal hernia repair, bilateral History of cardiac radiofrequency ablation (RFA) History of biopsy Right base of tongue biopsy H/O glossectomy History of bronchoscopy History of laryngoscopy History of prostatectomy History of neck surgery History of cholecystectomy History of heart artery stent x4 Family History (System 07/24/24 @ 13:52 by Niki Snow) Father Glaucoma Mother Heart disease History of stroke [facility] Problem: Diagnosed with Stroke Hypertension Emphysema lung ESRD (end stage renal disease) Sister Cancer [facility] Problem: Diagnosed with Cancer Lymphoma Social History Smoking Status: Former smoker Tobacco Type: cigarettes Substance Use Type: Alcohol Substance Abuse Comment: rare alcohol use [place] Symptom Assessment Scale Pain: throat pain controlled better using both Fentanyl and Oxycodone Nausea/Vomiting: increased nausea, denies vomiting c/o excessive secretions Anorexia: poor appetite Dyspnea: denies Constipation: moderate/ using Lactulose Drowsiness: sleeping intermittently during the day, easy to arouse Fatigue: moderate to severe, sleeping more Insomnia: denies Depression/Mood: tired Anxiety: stable Exam Exam General - A&O, weight loss apparent, tired-appearing, accompanied by HEENT - EOM intact, oral mucosa pink/moist Lungs - normal respiratory effort Abdomen - soft, non-distended Extremities - normal ROM, no edema Psychiatric - pleasant, cooperative, normal mood/affect Assessment & Plan Assessment & Plan (1) Cancer associated pain: Plan: Jeremie reports adequate pain control with current medication regimen of fentanyl 12 mcg and oxycodone 10 mg/10 ml, used TID - denies constipation or excessive drowsiness. Pain is not interfering with oral intake. OARRS reviewed, consistent with Rx. OME ~60 mg/day Continue Fentanyl 12 mcg patch without change Continue Oxycodone 10 mg/10 ml q4-6h PRN without change F/U here one week at time of radiation (2) Nausea: Plan: Jeremie reports increasing nausea without vomiting that is interfering with oralintake and he has lost 2#/week despite routine use of ondansetron and prochlorperazine. Will switch from prochlorperazine to olanzapine and adjust dosage as needed. Stop Compazine Start Olanzapine 2.5 mg at bedtime, can increase to BID dosing if necessary Continue Zofran ODT PRN (3) Constipation: Problem Comment: Secondary to opioids, and decreased oral intake Plan: Continue senna daily and lactulose PRN (4) Squamous cell carcinoma of oropharynx: Plan: Continues concurrent chemoradiation, last chemo tomorrow with 8 fractions of radiation remaining Attestation: The above note written by Viola Adan MA acting as human recorder, note dictated by Debora Wild APRN, RENTAL COORDINATOR-C [facility] Dictated By: Debora Wild APRN DD/ 0945 Signed By: <Electronically signed by RAYSHAWN Wild> 08/09/[address] [place] [address] Work Phone: [phone]) 817-326003-26-2025 [place] [address] Palliative Medicine Encounter Patient: Jeremie Bennett MR#: [id number] : 1940 Acct:[id number] Age/Sex: 83 / M Copies to: RAYSHAWN Engle MD~ HPI Date of Visit Date of Visit: 08/09/2024 Chief Complaint: Jeremie is here for one week follow up at time of radiation. He was started on Fentanyl patch 12 mcg and to continue Oxycodone 5mg/5ml every 4-6 hours PRN He was also treated for thrush at time of last office visit He has one more chemo tomorrow and 8 more radiation sessions HPI: Jeremie is seen and examined; interim period and pertinent symptoms reviewed below and detailed in ESAS: Pain control is ok with fentanyl 12 mcg and oxycodone 10 mg/10 ml PRN, pain is tolerable enough to swallow food and liquids Nausea has increased and this is limiting intake, weight down a couple pounds over the past week, no emesis; taking both zofran and compazine TID Had diarrhea over the weekend, normal BM yesterday Experiencing lots of fatigue, sleeps intermittently during the day in his chair,sleeps in bed during the night Has lots of phlegm in the throat but is able to expectorate, pharyngeal secretions do not cause gagging or nausea Last chemo tomorrow, 8 remaining radiation fractions to go Intake Allergies adhesive Allergy (Unknown, Verified 08/09/24 09:31) rash niacin (Niaspan Extended-Release) Allergy (Unknown, Verified 08/09/24 09:31) hives Home Medications ?Medication ?Instructions ?Recorded ?Confirmed amlodipine 5 mg tablet 5 mg PO QAM 07/27/23 08/09/24 clopidogrel 75 mg tablet 75 mg PO DAILY 07/27/23 08/09/24 dorzolamide 2 % eye drops 1 drp ophthalmic (eye) BID 07/27/23 08/09/24 famotidine 20 mg tablet 20 mg PO QPM 07/27/23 08/09/24 furosemide 20 mg tablet 20 mg PO QAM 07/27/23 08/09/24 irbesartan 300 mg tablet 300 mg PO QAM 07/27/23 08/09/24 latanoprost 0.005 % eye drops 1 drp ophthalmic (eye) QPM 07/27/23 08/09/24 rosuvastatin 10 mg tablet 10 mg PO QPM 07/27/23 08/09/24 sotalol 80 mg tablet 40 mg PO BID 07/27/23 08/09/24 tizanidine 4 mg tablet 4 mg PO QPM 07/27/23 08/09/24 zonisamide 25 mg capsule 25 mg PO BID 07/27/23 08/09/24 albuterol sulfate 90 mcg/actuation 1 inh inhalation Q4-6H PRN 06/14/24 08/09/24 breath activated powder inhaler shortness of breath or wheezing aspirin 81 mg chewable tablet 81 mg PO DAILY 06/14/24 08/09/24 fdtpbjy-xhmnloospddqa-ctycakvv 250 1 tab PO Q4-6H PRN pain 06/14/24 08/09/24 mg-250 mg-65 mg tablet (Excedrin Migraine) diphenhydramine 25 2 tab PO QHS PRN sleep 06/14/24 08/09/24 mg-acetaminophen 500 mg tablet (Tylenol PM Extra Strength) metformin 500 mg tablet 500 mg PO QAM 06/14/24 08/09/24 mometasone 0.1 % topical cream 1 applic topical DAILY #45 grams 06/14/24 08/09/24 multivitamin (Multiple Vitamins 1 tab PO DAILY 06/14/24 08/09/24 tablet) omeprazole 40 mg capsule,delayed 40 mg PO QAM 06/14/24 08/09/24 release ondansetron 8 mg disintegrating 8 mg PO Q8HR PRN nausea and 06/14/24 08/09/24 tablet vomiting #30 tabs fluticasone propionate 50 2 spray intranasal QAM 06/22/24 08/09/24 mcg/actuation nasal spray,suspension psyllium husk 0.4 gram capsule 0.4 g PO DAILY 06/22/24 08/09/24 (Fiber (psyllium husk)) Magic Mouthwash w/Lidocaine 240 mL 10 ml PO QID PRN mucositis #240 mL 07/06/24 08/09/24 Bottle 240 mL bottle doxycycline monohydrate 100 mg 100 mg PO BID 07/12/24 08/09/24 capsule lidocaine-prilocaine 2.5 %-2.5 % 2 g topical ONCE PRN pain #30 grams 07/13/24 08/09/24 topical cream Magic Mouthwash w/Lidocaine 240 mL 10 ml PO QID PRN mucositis #240 mL 07/19/24 08/09/24 Bottle 240 mL bottle isosorbide mononitrate 30 mg 30 mg PO QAM 07/20/24 08/09/24 tablet,extended release 24 hr fentanyl 12 mcg/hr transdermal 1 patch transdermal Q72HR 15 days 08/02/24 08/09/24 patch #5 ea lactulose 10 gram/15 mL oral 10 g (15 mL) PO DAILY PRN 08/02/24 08/09/24 solution constipation 30 days #450 mL nystatin 100,000 unit/mL oral 400,000 unit (4 mL) PO QID oral 08/02/24 08/09/24 suspension thrush 14 days #224 mL sennosides 8.6 mg tablet 8.6 mg PO BID PRN constipation 30 08/02/24 08/09/24 (Black-Draught Lax-Senna) days #60 tabs clotrimazole 10 mg joyce 10 mg mucous membrane 5XDAILY 08/03/24 08/09/24 thrush 14 days #70 tabs oxycodone 5 mg/5 mL oral solution 5 mg (5 mL) PO Q4-6H PRN pain 15 08/04/24 08/09/24 days #250 mL olanzapine 2.5 mg tablet 2.5 mg PO BID #30 tabs 08/09/24 Is patient having pain?: Yes PMF Medical History (Updated 08/09/24 @ 09:38 by Viola Adan [employer]) Pacemaker Prostate cancer surgery Neuropathy Vertigo Migraine Arthritis Glaucoma Pancreatic cyst Diverticulitis V tach 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 GERD (gastroesophageal reflux disease) Arthritis Malignant neoplasm of floor of mouth Vitamin D deficiency, unspecified Obstructive sleep apnea Hypercholesteremia Hernia Hiatal Hernia Excessive daytime sleepiness Essential hypertension DM (diabetes mellitus) Surgical History (Updated 07/24/24 @ 13:52 by Niki Snow) History of cervical spinal surgery History of tonsillectomy History of phacoemulsification of cataract of both eyes with intraocular lens implantation History of inguinal hernia repair, bilateral History of cardiac radiofrequency ablation (RFA) History of biopsy Right base of tongue biopsy H/O glossectomy History of bronchoscopy History of laryngoscopy History of prostatectomy History of neck surgery History of cholecystectomy History of heart artery stent x4 Family History (System 07/24/24 @ 13:52 by Niki Snow) Father Glaucoma Mother Heart disease History of stroke [facility] Problem: Diagnosed with Stroke Hypertension Emphysema lung ESRD (end stage renal disease) Sister Cancer [facility] Problem: Diagnosed with Cancer Lymphoma Social History Smoking Status: Former smoker Tobacco Type: cigarettes Substance Use Type: Alcohol Substance Abuse Comment: rare alcohol use [place] Symptom Assessment Scale Pain: throat pain controlled better using both Fentanyl and Oxycodone Nausea/Vomiting: increased nausea, denies vomiting c/o excessive secretions Anorexia: poor appetite Dyspnea: denies Constipation: moderate/ using Lactulose Drowsiness: sleeping intermittently during the day, easy to arouse Fatigue: moderate to severe, sleeping more Insomnia: denies Depression/Mood: tired Anxiety: stable Exam Exam General - A&O, weight loss apparent, tired-appearing, accompanied by HEENT - EOM intact, oral mucosa pink/moist Lungs - normal respiratory effort Abdomen - soft, non-distended Extremities - normal ROM, no edema Psychiatric - pleasant, cooperative, normal mood/affect Assessment & Plan Assessment & Plan (1) Cancer associated pain: Plan: Jeremie reports adequate pain control with current medication regimen of fentanyl 12 mcg and oxycodone 10 mg/10 ml, used TID - denies constipation or excessive drowsiness. Pain is not interfering with oral intake. OARRS reviewed, consistent with Rx. OME ~60 mg/day Continue Fentanyl 12 mcg patch without change Continue Oxycodone 10 mg/10 ml q4-6h PRN without change F/U here one week at time of radiation (2) Nausea: Plan: Jeremie reports increasing nausea without vomiting that is interfering with oralintake and he has lost 2#/week despite routine use of ondansetron and prochlorperazine. Will switch from prochlorperazine to olanzapine and adjust dosage as needed. Stop Compazine Start Olanzapine 2.5 mg at bedtime, can increase to BID dosing if necessary Continue Zofran ODT PRN (3) Constipation: Problem Comment: Secondary to opioids, and decreased oral intake Plan: Continue senna daily and lactulose PRN (4) Squamous cell carcinoma of oropharynx: Plan: Continues concurrent chemoradiation, last chemo tomorrow with 8 fractions of radiation remaining Attestation: The above note written by Viola Adan MA acting as human recorder, note dictated by Debora Wild APRN, RENTAL COORDINATOR-C A[facility]PN Dictated By: Debora Wild APRN DD/ [id number] Signed By: 08/09/24 [facility]5 [facility]03-12-2025 Progress note Author Maru Ma [facility] Note Date/Time July 26, 2024 12: 02pm [facility] [address] [place] [address] Palliative Medicine Encounter Patient: Jeremie Bennett MR#: [id number] : 1940 Acct:[id number] Age/Sex: 83 / M Copies to: DO Demetrius Busch MD~ HPI Date of Visit Date of Visit: 07/26/2024 Chief Complaint: Jeremie is here for a 1 week follow up with Dr. El. At last appointment the patient was to start oxycodone 5mg/ml take 1 hours prior to eating, and thencontinue with the magic mouthwash. 83-year-old male history of squamous cell carcinoma of the tongue recently givenoption to undergo aggressive resection surgically, or do concurrent chemoradiation. Opted for the latter, initially started on cisplatin, within 2 weeks had worsening tinnitus so he was switched to docetaxel. He has been following weekly with oncology for toxicity checks. Patient notes that he has had increasing pain in the throat over the course of the week it is constant, itching/burning, nonradiating, worse with eating, present at rest, moderate to severe in intensity, no noted alleviating factors. The patient has tried oxycodone and he states he gets some 5 minutes of relief after he initially swallows medication but then goes away completely. He denies any drowsiness, constipation, nausea with this medication. He states his energy levels been down, he notes unintentional weight loss of 7 pounds. Mood has been slightly decreased, denies anxiety. Intake Allergies adhesive Allergy (Unknown, Verified 07/24/24 13:52) rash niacin (Niaspan Extended-Release) Allergy (Unknown, Verified 07/24/24 13:52) hives Home Medications ?Medication ?Instructions ?Recorded ?Confirmed amlodipine 5 mg tablet 5 mg PO QAM 07/27/23 07/26/24 clopidogrel 75 mg tablet 75 mg PO DAILY 07/27/23 07/26/24 dorzolamide 2 % eye drops 1 drp ophthalmic (eye) BID 07/27/23 07/26/24 famotidine 20 mg tablet 20 mg PO QPM 07/27/23 07/26/24 furosemide 20 mg tablet 20 mg PO QAM 07/27/23 07/26/24 irbesartan 300 mg tablet 300 mg PO QAM 07/27/23 07/26/24 latanoprost 0.005 % eye drops 1 drp ophthalmic (eye) QPM 07/27/23 07/26/24 rosuvastatin 10 mg tablet 10 mg PO QPM 07/27/23 07/26/24 sotalol 80 mg tablet 40 mg PO BID 07/27/23 07/26/24 tizanidine 4 mg tablet 4 mg PO QPM 07/27/23 07/26/24 zonisamide 25 mg capsule 25 mg PO BID 07/27/23 07/26/24 albuterol sulfate 90 mcg/actuation 1 inh inhalation Q4-6H PRN 06/14/24 07/26/24 breath activated powder inhaler shortness of breath or wheezing aspirin 81 mg chewable tablet 81 mg PO DAILY 06/14/24 07/26/24 isxzvqa-qfzpdoxntrbwu-yobfxnnm 250 1 tab PO Q4-6H PRN pain 06/14/24 07/26/24 mg-250 mg-65 mg tablet (Excedrin Migraine) diphenhydramine 25 2 tab PO QHS PRN sleep 06/14/24 07/26/24 mg-acetaminophen 500 mg tablet (Tylenol PM Extra Strength) metformin 500 mg tablet 500 mg PO QAM 06/14/24 07/26/24 mometasone 0.1 % topical cream 1 applic topical DAILY #45 grams 06/14/24 07/26/24 multivitamin (Multiple Vitamins 1 tab PO DAILY 06/14/24 07/26/24 tablet) omeprazole 40 mg capsule,delayed 40 mg PO QAM 06/14/24 07/26/24 release ondansetron 8 mg disintegrating 8 mg PO Q8HR PRN nausea and 06/14/24 07/26/24 tablet vomiting #30 tabs prochlorperazine maleate 10 mg 10 mg PO Q8HR PRN nausea and 06/14/24 07/26/24 tablet (Compazine) vomiting #30 tabs fluticasone propionate 50 2 spray intranasal QAM 06/22/24 07/26/24 mcg/actuation nasal spray,suspension psyllium husk 0.4 gram capsule 0.4 g PO DAILY 06/22/24 07/26/24 (Fiber (psyllium husk)) Magic Mouthwash w/Lidocaine 240 mL 10 ml PO QID PRN mucositis #240 mL 07/06/24 07/26/24 Bottle 240 mL bottle doxycycline monohydrate 100 mg 100 mg PO BID 07/12/24 07/26/24 capsule lidocaine-prilocaine 2.5 %-2.5 % 2 g topical ONCE PRN pain #30 grams 07/13/24 07/26/24 topical cream hydrocodone 5 mg-acetaminophen 325 1 tab PO Q12HR PRN pain 2 days #4 07/17/24 07/26/24 mg tablet tabs Magic Mouthwash w/Lidocaine 240 mL 10 ml PO QID PRN mucositis #240 mL 07/19/24 07/26/24 Bottle 240 mL bottle oxycodone 5 mg/5 mL oral solution 5 mg (5 mL) PO Q4-6H PRN pain 15 07/19/24 07/26/24 days #250 mL isosorbide mononitrate 30 mg 30 mg PO QAM 07/20/24 07/26/24 tablet,extended release 24 hr PMFSH Medical History (Updated 07/24/24 @ 13:52 by Niki Snow) Pacemaker Prostate cancer surgery Neuropathy Vertigo Migraine Arthritis Glaucoma Pancreatic cyst Diverticulitis V tach 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 GERD (gastroesophageal reflux disease) Arthritis Malignant neoplasm of floor of mouth Vitamin D deficiency, unspecified Obstructive sleep apnea Hypercholesteremia Hernia Hiatal Hernia Excessive daytime sleepiness Essential hypertension DM (diabetes mellitus) Surgical History (Updated 07/24/24 @ 13:52 by Niki Snow) History of cervical spinal surgery History of tonsillectomy History of phacoemulsification of cataract of both eyes with intraocular lens implantation History of inguinal hernia repair, bilateral History of cardiac radiofrequency ablation (RFA) History of biopsy Right base of tongue biopsy H/O glossectomy History of bronchoscopy History of laryngoscopy History of prostatectomy History of neck surgery History of cholecystectomy History of heart artery stent x4 Family History (System 07/24/24 @ 13:52 by Niki Snow) Father Glaucoma Mother Heart disease History of stroke [facility] Problem: Diagnosed with Stroke Hypertension Emphysema lung ESRD (end stage renal disease) Sister Cancer [facility] Problem: Diagnosed with Cancer Lymphoma Social History Smoking Status: Former smoker Tobacco Type: cigarettes Substance Use Type: Alcohol Substance Abuse Comment: rare alcohol use [place] Symptom Assessment Scale See above Exam Exam General appearance: No acute distress, alert and oriented x3. Frail appearing Eyes: PERRLA, EOMI. No conjunctival injection. No nystagmus. HEENT: The external ears and nose appear grossly normal. Cardiovascular: Regular rate and rhythm, no murmurs rubs gallops. Pulses are 2+and symmetric throughout. Neck: trachea is midline Respiratory: Clear to auscultation bilaterally, no wheezes rales or rhonchi. Gastrointestinal: Soft, nontender abdomen. No distention. No rebound, guarding,organomegaly noted. Neurological exam: Moves all extremities without difficulty. Alert and oriented x3. No focal neurological deficits. Musculoskeletal: No obvious deformity. No obvious effusion. No obvious lower extremity edema. Assessment & Plan Assessment & Plan (1) Nausea: (2) Cancer associated pain: (3) Squamous cell carcinoma of oropharynx: Plan 83-year-old male with squamous cell carcinoma tongue in the middle lobe chemoradiation, seen in the radiation suite today. Recently switched to docetaxel due to toxicity in the form of tinnitus from cisplatin. Increasing irritation and pain in the throat, unresponsive to oxycodone 5 mg. Recommended increase to 10 mg, and call back within a day or so if this is not working. Very low threshold to start the patient on fentanyl 12.5 mcg per 72-hour patch. Unintentional weight loss of 7 pounds, hopefully this intervention will help decrease the rate of weight loss. I did have a discussion with the patient thatif weight loss continues, there is a potential that recommendations would include a PEG tube which the patient was initially trying to avoid. <Statement entered by Maru Ma DO - 07/26/24 12:00> This documentation has been reviewed and approved. Agree with above assessment and plan. Increasing oxycodone due to uncontrolled pain. Dictated By: Maru Ma DO DD/ [id number] Signed By: <Electronically signed by Maru Ma DO> 07/26/24 1202 <Electronically signed by FELLOW Mario El> 07/26/[address] [facility] Work Phone: 1(969) 872-336403-12-2025 [place] [id number] Palliative Medicine Encounter Patient: Jeremie Bennett MR#: [id number] : 1940 Acct:[id number] Age/Sex: 83 / M Copies to: DO Demetrius Busch MD~ HPI Date of Visit Date of Visit: 07/26/2024 Chief Complaint: Jeremie is here for a 1 week follow up with Dr. El. At last appointment the patient was to start oxycodone 5mg/ml take 1 hours prior to eating, and thencontinue with the magic mouthwash. 83-year-old male history of squamous cell carcinoma of the tongue recently givenoption to undergo aggressive resection surgically, or do concurrent chemoradiation. Opted for the latter, initially started on cisplatin, within 2 weeks had worsening tinnitus so he was switched to docetaxel. He has been following weekly with oncology for toxicity checks. Patient notes that he has had increasing pain in the throat over the course of the week it is constant, itching/burning, nonradiating, worse with eating, present at rest, moderate to severe in intensity, no noted alleviating factors. The patient has tried oxycodone and he states he gets some 5 minutes of relief after he initially swallows medication but then goes away completely. He denies any drowsiness, constipation, nausea with this medication. He states his energy levels been down, he notes unintentional weight loss of 7 pounds. Mood has been slightly decreased, denies anxiety. Intake Allergies adhesive Allergy (Unknown, Verified 07/24/24 13:52) rash niacin (Niaspan Extended-Release) Allergy (Unknown, Verified 07/24/24 13:52) hives Home Medications ?Medication ?Instructions ?Recorded ?Confirmed amlodipine 5 mg tablet 5 mg PO QAM 07/27/23 07/26/24 clopidogrel 75 mg tablet 75 mg PO DAILY 07/27/23 07/26/24 dorzolamide 2 % eye drops 1 drp ophthalmic (eye) BID 07/27/23 07/26/24 famotidine 20 mg tablet 20 mg PO QPM 07/27/23 07/26/24 furosemide 20 mg tablet 20 mg PO QAM 07/27/23 07/26/24 irbesartan 300 mg tablet 300 mg PO QAM 07/27/23 07/26/24 latanoprost 0.005 % eye drops 1 drp ophthalmic (eye) QPM 07/27/23 07/26/24 rosuvastatin 10 mg tablet 10 mg PO QPM 07/27/23 07/26/24 sotalol 80 mg tablet 40 mg PO BID 07/27/23 07/26/24 tizanidine 4 mg tablet 4 mg PO QPM 07/27/23 07/26/24 zonisamide 25 mg capsule 25 mg PO BID 07/27/23 07/26/24 albuterol sulfate 90 mcg/actuation 1 inh inhalation Q4-6H PRN 06/14/24 07/26/24 breath activated powder inhaler shortness of breath or wheezing aspirin 81 mg chewable tablet 81 mg PO DAILY 06/14/24 07/26/24 opblcru-swpwhiisitvko-iktsjyob 250 1 tab PO Q4-6H PRN pain 06/14/24 07/26/24 mg-250 mg-65 mg tablet (Excedrin Migraine) diphenhydramine 25 2 tab PO QHS PRN sleep 06/14/24 07/26/24 mg-acetaminophen 500 mg tablet (Tylenol PM Extra Strength) metformin 500 mg tablet 500 mg PO QAM 06/14/24 07/26/24 mometasone 0.1 % topical cream 1 applic topical DAILY #45 grams 06/14/24 07/26/24 multivitamin (Multiple Vitamins 1 tab PO DAILY 06/14/24 07/26/24 tablet) omeprazole 40 mg capsule,delayed 40 mg PO QAM 06/14/24 07/26/24 release ondansetron 8 mg disintegrating 8 mg PO Q8HR PRN nausea and 06/14/24 07/26/24 tablet vomiting #30 tabs prochlorperazine maleate 10 mg 10 mg PO Q8HR PRN nausea and 06/14/24 07/26/24 tablet (Compazine) vomiting #30 tabs fluticasone propionate 50 2 spray intranasal QAM 06/22/24 07/26/24 mcg/actuation nasal spray,suspension psyllium husk 0.4 gram capsule 0.4 g PO DAILY 06/22/24 07/26/24 (Fiber (psyllium husk)) Magic Mouthwash w/Lidocaine 240 mL 10 ml PO QID PRN mucositis #240 mL 07/06/24 07/26/24 Bottle 240 mL bottle doxycycline monohydrate 100 mg 100 mg PO BID 07/12/24 07/26/24 capsule lidocaine-prilocaine 2.5 %-2.5 % 2 g topical ONCE PRN pain #30 grams 07/13/24 07/26/24 topical cream hydrocodone 5 mg-acetaminophen 325 1 tab PO Q12HR PRN pain 2 days #4 07/17/24 07/26/24 mg tablet tabs Magic Mouthwash w/Lidocaine 240 mL 10 ml PO QID PRN mucositis #240 mL 07/19/24 07/26/24 Bottle 240 mL bottle oxycodone 5 mg/5 mL oral solution 5 mg (5 mL) PO Q4-6H PRN pain 15 07/19/24 07/26/24 days #250 mL isosorbide mononitrate 30 mg 30 mg PO QAM 07/20/24 07/26/24 tablet,extended release 24 hr PMFSH Medical History (Updated 07/24/24 @ 13:52 by Niki Snow) Pacemaker Prostate cancer surgery Neuropathy Vertigo Migraine Arthritis Glaucoma Pancreatic cyst Diverticulitis V tach 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 GERD (gastroesophageal reflux disease) Arthritis Malignant neoplasm of floor of mouth Vitamin D deficiency, unspecified Obstructive sleep apnea Hypercholesteremia Hernia Hiatal Hernia Excessive daytime sleepiness Essential hypertension DM (diabetes mellitus) Surgical History (Updated 07/24/24 @ 13:52 by Niki Snow) History of cervical spinal surgery History of tonsillectomy History of phacoemulsification of cataract of both eyes with intraocular lens implantation History of inguinal hernia repair, bilateral History of cardiac radiofrequency ablation (RFA) History of biopsy Right base of tongue biopsy H/O glossectomy History of bronchoscopy History of laryngoscopy History of prostatectomy History of neck surgery History of cholecystectomy History of heart artery stent x4 Family History (System 07/24/24 @ 13:52 by Niki Snow) Father Glaucoma Mother Heart disease History of stroke [facility] Problem: Diagnosed with Stroke Hypertension Emphysema lung ESRD (end stage renal disease) Sister Cancer [facility]am[facility] Problem: Diagnosed with Cancer Lymphoma Social History Smoking Status: Former smoker Tobacco Type: cigarettes Substance Use Type: Alcohol Substance Abuse Comment: rare alcohol use [place] Symptom Assessment Scale See above Exam Exam General appearance: No acute distress, alert and oriented x3. Frail appearing Eyes: PERRLA, EOMI. No conjunctival injection. No nystagmus. HEENT: The external ears and nose appear grossly normal. Cardiovascular: Regular rate and rhythm, no murmurs rubs gallops. Pulses are 2+and symmetric throughout. Neck: trachea is midline Respiratory: Clear to auscultation bilaterally, no wheezes rales or rhonchi. Gastrointestinal: Soft, nontender abdomen. No distention. No rebound, guarding,organomegaly noted. Neurological exam: Moves all extremities without difficulty. Alert and oriented x3. No focal neurological deficits. Musculoskeletal: No obvious deformity. No obvious effusion. No obvious lower extremity edema. Assessment & Plan Assessment & Plan (1) Nausea: (2) Cancer associated pain: (3) Squamous cell carcinoma of oropharynx: Plan 83-year-old male with squamous cell carcinoma tongue in the middle lobe chemoradiation, seen in theradiation suite today. Recently switched to docetaxel due to toxicity in the form of tinnitus from cisplatin. Increasing irritation and pain in the throat, unresponsive to oxycodone 5 mg. Recommendedincrease to 10 mg, and call back within a day or so if this is not working. Very low threshold to start the patient on fentanyl 12.5 mcg per 72-hour patch. Unintentional weight loss of 7 pounds, hopefully this intervention will help decrease the rate of weight loss. I did have a discussion with thepatient thatif weight loss continues, there is a potential that recommendations would include a PEGtube which the patient was initially trying to avoid. This documentation has been reviewed and approved. Agree with above assessment and plan. Increasingoxycodone due to uncontrolled pain. Dictated By: Maru Ma DO DD/ [id number] Signed By: 07/26/24 1202 07/26/24 0944 [facility]03-12-2025 Evaluation note* Diagnosis Onset Date Resolution Status Admit Date 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, 2024 8:13am Cancer associated pain acute [facility] 2024 8:22am Nausea acute July 26 8:22am 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, 2024 8:22am [facility] Work Phone: 1([phone]) 304-670803-12-2025 Evaluation note* Diagnosis Onset Date Resolution Status Admit Date 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, 2024 8:13am Cancer associated pain acute [facility] 2024 8:22am Nausea acute July 26 8:22am 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, 2024 8:22am Cancer associated pain acute [facility] 2024 7:29am Constipation acute August 02, 2024 7:29am Squamous cell carcinoma of oropharynx acute August 02, 2024 7:29am Thrush, oral acute August 02, 2024 7:29am [facility] Work Phone: [phone] 854-439703-12-2025 Evaluation note* Diagnosis Onset Date Resolution Status Admit Date 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, 2024 8:13am Cancer associated pain acute [facility] 2024 8:22am Nausea acute July 26 8:22am 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, 2024 8:22am Cancer associated pain acute [facility] 2024 7:29am Constipation acute August 02, 2024 7:29am Squamous cell carcinoma of oropharynx acute August 02, 2024 7:29am Thrush, oral acute August 02, 2024 7:29am Cancer associated pain acute [facility] 2024 7:51am Constipation acute August 09, 2024 7:51am Nausea acute August 09 7:51am Squamous cell carcinoma of oropharynx acute August 09, 2024 7:51am Squamous cell carcinoma of oropharynx acute August 09, 2024 9:23am [facility] Work Phone: [phone] 151-833003-12-2025 Evaluation note* Diagnosis Onset Date Resolution Status Admit Date 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, 2024 8:13am Cancer associated pain acute [facility] 2024 8:22am Nausea acute July 26 8:22am 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, 2024 8:22am Cancer associated pain acute [facility] 2024 7:29am Constipation acute August 02, 2024 7:29am Squamous cell carcinoma of oropharynx acute August 02, 2024 7:29am Thrush, oral acute August 02, 2024 7:29am Cancer associated pain acute [facility] 2024 7:51am Constipation acute August 09, 2024 7:51am Nausea acute August 09 7:51am Squamous cell carcinoma of oropharynx acute August 09, 2024 7:51am Squamous cell carcinoma of oropharynx acute August 09, 2024 9:23am Cancer associated pain acute [facility] 2024 7:59am Constipation acute August 16, 025 7:59am Nausea acute August 16 7:59am Squamous cell carcinoma of oropharynx acute August 16, 2024 7:59am [facility] Work Phone: [phone] Evaluation note* Diagnosis Onset Date Resolution Status Admit Date 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, 2024 8:13am Cancer associated pain acute [facility] 2024 8:22am Nausea acute July 26 8:22am 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, 2024 8:22am Cancer associated pain acute [facility] 2024 7:29am Constipation acute August 02, 2024 7:29am Squamous cell carcinoma of oropharynx acute August 02, 2024 7:29am Thrush, oral acute August 02, 2024 7:29am Cancer associated pain acute [facility] 2024 7:51am Constipation acute August 09, 2024 7:51am Nausea acute August 09 7:51am Squamous cell carcinoma of oropharynx acute August 09, 2024 7:51am Squamous cell carcinoma of oropharynx acute August 09, 2024 9:23am Cancer associated pain acute Ap [facility] 2024 7:59am Constipation acute August 16, 2 025 7:59am Nausea acute August 16 7:59am Squamous cell carcinoma of oropharynx acute August 16, 2024 7:59am Fever acute August 20 7:35pm Immunosuppression acute August 202024 7:35pm Pneumonia acute August 20 7:35pm [facility] Work Phone: [phone] 141-268703-12-2025 Evaluation note* Diagnosis Onset Date Resolution Status Admit Date 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, 2024 8:13am Cancer associated pain acute [facility] 2024 8:22am Nausea acute July 26 8:22am 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, 2024 8:22am Cancer associated pain acute [facility] 2024 7:29am Constipation acute August 02, 2024 7:29am Squamous cell carcinoma of oropharynx acute August 02, 2024 7:29am Thrush, oral acute August 02, 2024 7:29am Cancer associated pain acute [facility] 2024 7:51am Constipation acute August 09, 2024 7:51am Nausea acute August 09 7:51am Squamous cell carcinoma of oropharynx acute August 09, 2024 7:51am Squamous cell carcinoma of oropharynx acute August 09, 2024 9:23am Cancer associated pain acute 2024 7:59am Constipation acute August 16, 025 7:59am Nausea acute August 16 7:59am Squamous cell carcinoma of oropharynx acute August 16, 2024 7:59am Fever acute August 20 7:35pm Immunosuppression acute August 202024 7:35pm Pneumonia acute August 20 7:35pm Squamous cell carcinoma of oropharynx acute August 20, 2024 7:35pm [facility] Work Phone: [phone] 490-571203-12-2025 Evaluation note* Diagnosis Onset Date Resolution Status Admit Date 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, 2024 8:13am Cancer associated pain acute [facility] 2024 8:22am Nausea acute July 26 8:22am 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, 2024 8:22am Cancer associated pain acute [facility] 2024 7:29am Constipation acute August 02, 2024 7:29am Squamous cell carcinoma of oropharynx acute August 02, 2024 7:29am Thrush, oral acute August 02, 2024 7:29am Cancer associated pain acute [facility] 2024 7:51am Constipation acute August 09, 2024 7:51am Nausea acute August 09 7:51am Squamous cell carcinoma of oropharynx acute August 09, 2024 7:51am Squamous cell carcinoma of oropharynx acute August 09, 2024 9:23am Cancer associated pain acute Ap ril 2024 7:59am Constipation acute August 16, 7:59am Nausea acute August 16 7:59am Squamous cell carcinoma of oropharynx acute August 16, 2024 7:59am Squamous cell carcinoma of oropharynx acute August 20, 2024 7:35pm Fever resolved August 20 7:35pm Immunosuppression resolved August 202024 7:35pm Pneumonia resolved August 20 7:35pm Squamous cell carcinoma of oropharynx acute August 23, 2024 9:39am Tongue cancer acute September 07, 2024 9:14am CAD (coronary artery disease) acute September 11, 2024 9:55am Central sleep apnea acute September 11, 2024 9:55am DM (diabetes mellitus) acute Ap ril 2024 9:55am Essential hypertension acute Ap ril 2024 9:55am Obstructive sleep apnea acute A pril 2024 9:55am Squamous cell carcinoma of oropharynx acute September 11, 2024 9:55am [facility] Work Phone: [phone] 177-876203-05-2025 NoteUTP Cardiovascular Medicine [facility] Patient here for follow-up after his generator change. He has been feeling well. Denies c/o CP, dyspnea, orthopnea, PND, LE edema, dizziness/LH, palpitations, syncope. Denies any fevers/chills. No drainage from incision. PACEMAKER GENERATOR REPLACEMENT PROCEDURE NOTE DATE OF PROCEDURE: 07/10/2024 PERFORMING PHYSICIAN: Dr. Stacey Patel CONSENT: Patient LOCATION: EP Lab PROCEDURE PERFORMED: 1. Implantation of pacemaker (Medtronic) 2. Explant of previously implanted pacemaker (Medtronic) INDICATIONS: Device at EOL. PROCEDURAL SEDATION: Versed and Fentanyl. Moderate sedation was administered by the sedation nurse under my supervision and noted in the CVL log. Intraprocedural face to face sedation time: 44min. Monitoring: Cardiac telemetry, Blood pressure, continuous pulse oxymetry. FLUOROSCOPY TIME:0min EBL: 5cc SPECIMEN REMOVED: None PROCEDURAL DETAILS: Patient was brought to the EP lab in the post absorptive state. A procedural pause was performed identifying the patient, the procedure to be performed and the site of implant. The left chest was prepped and draped in the usual sterile fashion. Preoperative antibiotics IV Ancef was administered. Patient was placed in trendelenberg position and local infiltration of 1% Lidocaine was performed, and an incision was created in the left upper chest. Dissection was then performed using cautery down to the fascial plane to identify the capsule. Capsulotomy was performed and the device was freed and the leads were freed form the underlying capsule. Capsulectomy was performed so as to open and exteriorize the device. Leads were then removed and connected to a new Medtronic pacemaker generator in sequence. Once both leads were attached, pacing thresholds, sensing and impedance were checked and noted to be stable as prior to procedure. Pocket hemostasis was secured, and it was then copiously and vigorously irrigated with antibiotic solution. The leads were wrapped under the device and the device was tacked to underlying muscle and placed in the pocket. The pocket was closed in layers: subcutaneous layer using 2-0 Vicryl and skin using 3-0 absorbable monofilament suture. Glue was applied and Tegaderm dressing was placed on top. Lead parameters were then rechecked through the device as noted below. The patient was returned to the short stay room for post procedural observation. No immediate procedural complications were noted. POST PROCEDURE EXAM: Patient was hemodynamically stable. COMPLICATIONS: None. IMPRESSION: 1. Successful dual chamber pacemaker generator change with excellent pacing and sensing parameters. RECOMMENDATIONS: 1. Occlusive dressing to be removed after 2 weeks. 2. Do not wet the incision for 7 days. 3. F/u in device clinic 1 week from discharge or sooner for any concerns. 4. Doxycycline 100mg bid x 2 weeks Stacey Patel MD Cardiac Electrophysiology A/P: #SND s/p dual chamber pacemaker #s/p generator change 07/10/2024 -He has been doing well since his gen change. Denies any fevers/chills or abnormal drainage from his incision. Denies CP, dyspnea, palpitations. -Device incision is healing well and without any s/s of infection including no erythema/calor/drainage. No hematoma present. -Instructed patient it is okay to shower but avoid direct shower head pressure. -Do not apply any creams/lotions/ointments/gels to incision. Keep incision clean and dry. -Instructed patient to notify clinic for any s/s of infection including fever/chills, worsening pain, abnormal drainage, etc. -Follow-up for device check in 1 month. -Follow-up in clinic with a provider in 3 months. Boy Buitrago APRN-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 Left mandible biopsywas benign tissue with inflammation only. 06/05/[address] biopsy was positive for metastatic non keratinizing SCC, High risk HPV FISH was positive in tumor cells, P16 by IHC was equivocal. As per the [facility] tumor board recommendation is either doing extensive surgery or concurrent chemoradiation and patient and family decided togo with concurrent chemoradiation. He has bilateral hearing deficiency and tinnitus for years for which she wears hearing aids intermittently. However he can hear the conversation today and he said his hearing deficiency is mostly on high-frequency. Audiogram he has mild to severe bilateral hearing loss in some frequencies but normal speech hearing. Chemo consent obtained for both the weekly cisplatin and weekly carboplatin Taxol and concurrent with radiation depending on the results of the audiogram. Treatment Plan is for concurrent chemoradiation to start with the weekly cisplatin if the audiogramtest revealed only mild to moderate hearing loss however if it severe then we will change to carboplatin and Taxol. 07/12/24: He is here for evaluation prior to week 2 of weekly Cisplatin scheduledon 07/13/24. He is here for toxicity check from his week 1 of cisplatin. Labs at [facility] on 07/03/24 revealed hgb 13.3, cr is 1.0. He is having his labs here today.He had his pacemaker placed on 07/10/24 in [place]. PLAN: proceed with week 2 cisplatin tomorrow while monitoring his hearing and his tinnitus for any changes. no changes so far. Labs weekly. RTC in 2 weeks for week 4 of Cisplatin. Port placement per patietn request. Return on week 2 of treatment. Patient Instructions: proceed with chemo tomorrow if labs ok follow up in 2 weeks CHEMO PLAN Treatment Plan Cisplatin 40mg/m2 Weekly with Radiation 1000 Criteria Clinical Indication No Indication Cycle Number Last Admin 1 of 1 Cycle Day Next Admin 7 of 43 No Active Chemotherapy History of Present Illness SANTOSH Adam is an 83-year-old gentleman who lives in [facility] was referred to our medical oncology office from [facility] for his a new base of the tongue squamous cell carcinoma after was seen at [facility] ENT and underwent a biopsy. He is here as an initial consult accompanied by his spouse. He underwent FNA biopsy of the right enlarged cervical lymph node which came back positive for p16 positive squamous cell carcinoma. PET CT scan 03/27/24 revealed FDG avidity bilateral cervical nodes and left mandible. CT of the neck 02/14/24 revealed incidental right parotid nodule with enlarged right level 2B and left level 2A lymph nodes. There is stenosis of the left ICAas well. 04/07/2024 in office biopsy at ENT office of the left mandible irregularities revealed benign tissue with inflammation. 05/11/2024 direct laryngoscopy with biopsy of the right base of the tongue lesion revealed p16 positive squamous cell carcinoma. Tumor board at [facility] in [facility] and the recommended concurrent chemoradiation. Past medical history is positive for ventricular tachycardia with pacemaker in place and is planning to have it replaced with a end of June 2024. He has ahistory of coronary artery disease with stents on Plavix. And history of diabetes mellitus type 2 hypertension and hyperlipidemia. He quit smoking about 42 years ago. He quit using smokeless tobacco as well. He drinks alcohol about 2 standard drinks of alcohol per week. His case was discussed at head and neck tumor board. They stated he needs tohave a biopsy of thecontralateral lymph node that lit up on PET/CT. She was scheduled to have it done on 06/05/2024. Option of treatment would be surgery versus concurrent chemoradiation. Surgery would involve transoral robotic surgery to approach and fully resect the primary tumor and neck dissection to remove the cervical lymph nodes. He may still need radiation afterwards. Patient discussed the plans are or treatment options with his family and they decided to proceed with concurrent chemoradiation. Since he lives in [place] he was referred by Dr. Mary Ly from ENT at [facility] to our medical oncology and radiation oncology at [facility]. 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 Left mandible biopsy was benign tissue with inflammation only. 06/05/[address] biopsy was positive for metastatic non keratinizing SCC, High risk HPV FISH was positive in tumor cells, P16 by IHC was equivocal. Review of systems positive for some dysphagia and pain with swallowing and appetite is not that great. 07/12/24: He is here for evaluation prior to week 2 of weekly Cisplatin scheduledon 07/13/24. He is here for toxicity check from his week 1 of cisplatin. Labs at [facility] on 07/03/24 revealed hgb 13.3, cr is 1.0. He is having his labs here today.He had his pacemaker placed on 07/10/24 in [place]. Rest of 14 point systems were reviewed and are otherwise negative. Intake Vitals/Pain Assessment 07/12/24 08:41 Weight 76.657 kg BP 106/60 Blood Pressure Location Rt brachial Position Sitting Temp 97.3 F L Temp Source Temporal Pulse 61 Pulse Source NIBP Respiration 20 Pulse Oximetry (%) 96 Oxygen Delivery Method room air Are you having pain? Yes Intake Visit Reasons: Tox check Accompanied by: Spouse Allergies adhesive Allergy (Unknown, Verified 07/12/24 08:45) rash niacin (Niaspan Extended-Release) Allergy (Unknown, Verified 07/12/24 08:45) hives Home Medications - Last Reconciled 07/12/24 by EDIS Negron albuterol sulfate 90 mcg/actuation 1 inh inhalation Q4-6H PRN amlodipine 5 mg PO QAM aspirin 81 mg PO DAILY phzuoou-mgjjyjdkhvmwv-dyeexxxi 250-250-65 mg (Excedrin Migraine) 1 tab PO Q4-6H PRN clopidogrel 75 mg PO DAILY diphenhydramine-acetaminophen 25-500 mg (Tylenol PM Extra Strength) 2 tabs PO QHS PRN dorzolamide 2% 1 drp ophthalmic (eye) BID doxycycline monohydrate 100 mg PO BID famotidine 20 mg PO QPM fluticasone propionate 50 mcg/actuation 2 sprays intranasal QAM furosemide 20 mg PO QAM irbesartan 300 mg PO QAM isosorbide mononitrate ER 30 mg PO QAM latanoprost 0.005% 1 drp ophthalmic (eye) QPM Magic Mouthwash w/Lidocaine 240 mL Bottle 10 mL PO QID PRN metformin 500 mg PO QAM mometasone 0.1% 1 applic topical DAILY multivitamin (Multiple Vitamins tablet) 1 tab PO DAILY omeprazole 40 mg PO QAM ondansetron 8 mg PO Q8HR PRN prochlorperazine maleate (Compazine) 10 mg PO Q8HR PRN psyllium husk (Fiber (psyllium husk)) 0.4 grams PO DAILY rosuvastatin 10 mg PO QPM sotalol 40 mg PO BID tizanidine 4 mg PO QPM zonisamide 25 mg PO BID Gastrointestinal Is the patient taking opioids for pain control?: No Bowel Protocol for Opioids Given: No Bowel Pattern: Regular Bowel Movement Aid(s): Stool Softener Falls Fall Precaution Measures Taken: Patient in chair Nurse's Note: Patient is here for a 1 month follow up, had pacemaker replaced on Wednesday. Scheduled for treatment tomorrow. No other concerns voiced at time of intake. [facility] Medical History Medical History (Updated 07/06/24 @ 09:33 by Viola Adan CMA) Prostate cancer surgery Neuropathy Vertigo Migraine Arthritis Glaucoma Pancreatic cyst Diverticulitis Artificial cardiac pacemaker V tach 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 GERD (gastroesophageal reflux disease) Arthritis Malignant neoplasm of floor of mouth Vitamin D deficiency, unspecified Obstructive sleep apnea Hypercholesteremia Hernia Hiatal Hernia Excessive daytime sleepiness Essential hypertension DM (diabetes mellitus) Surgical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 BNT-162b2 vax 06/06/2020 Recorded SARS-CoV-2 (COVID-19) Ad26 vaccine 06/06/2020 Recorded influenza virus vaccine, inactivated 02/14/2020 Recorded influenza, unspecified formulation 01/22/2018 Recorded pneumococcal 13-valent vaccine [facility]/30/[facility] NoteN[facility] Consultation Note Reason for Visit Pt presents today for lab draw. 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: Malignant neoplasm of oropharynx, unspecified) Medications Albuterol (Eqv-ProAir HFA) 90 mcg/inh inhalation aerosol, See Instructions amLODIPine 5 mg Tab, 5 mg= 1 tab(s), Oral, Daily, 1 refills Aspir 81, 81 mg, Oral, Daily dorzolamide ophthalmic 2% solution, 1 drop(s), OPTH, BID Esgic 325 mg-50 mg-40 mg oral capsule, 1 cap(s), Oral, q4hr, PRN, 1 refills fluticasone Nasal 0.05 mg/inh [place], See Instructions furosemide 20 mg Tab, 20 [...] Allergies Adhesive Bandage (Rash) Niaspan ER (Itching) Immunizations Vaccine Date Status Comments influenza virus vaccine, inactivated 04/17/2024 Given zoster vaccine, inactivated 02/09/2024 Recorded zoster vaccine, inactivated 11/22/2023 Recorded pneumococcal 20-valent conjugate vaccine 11/22/2023 Recorded influenza virus vaccine, inactivated 04/12/2023 Recorded SARSCoV2 mRNA(otrixvkcb-vgez-lfnysm) vac 11/25/2021 Recorded SARS-CoV-2 (COVID-19) mRNA BNT-162b2 vax 03/06/2021 Recorded 2022-11-03: TPV80 influenza virus vaccine, inactivated 02/18/2021 Recorded SARS-CoV-2 (COVID-19) mRNA BNT-162b2 vax 06/27/2020 Recorded SARS-CoV-2 (COVID-19) Ad26 vaccine 06/27/2020 Recorded SARS-CoV-2 (COVID-19) mRNA BNT-162b2 vax 06/06/2020 Recorded SARS-CoV-2 (COVID-19) Ad26 vaccine 06/06/2020 Recorded influenza virus vaccine, inactivated 02/14/2020 Recorded influenza, unspecified formulation 01/22/2018 Recorded pneumococcal 13-valent vaccine 01/30/2014 [facility] History of Present illness Narrative* Isabel Polina Romano, AUD - 06/23/2024 4:00 PM EST History: Patient was referred for an audiological evaluation. A baseline hearing exam was recommended prior to chemo treatment. Patient sees an ENT at [facility]. Patient is aware of hearing loss, wearing amplification. Patient perceives bilateral tinnitus. He denies symptoms of ear pain or vertigo. History is positive for occupational noise exposure. Otoscopic Exam: Revealed partially occlusive cerumen, bilaterally, which was removed prior to testing, without incident. Pure Tone Audiometry Audio indicated a mild to severe sensorineural hearing loss 250-8000 Hz, bilaterally. Speech Audiometry Right SRT = 40 dB and word discrimination score at 65 dBHL = 100% Left SRT = 35 dB and word discrimination score at 65 dBHL = 100% Tympanometry Normal tympanograms, bilaterally, indicating normal middle ear function Impressions: Results to Dr. Faustin at [facility] per patient. documented in this encounterCameron Regional Medical [id number] History of Present illness Narrative* Matteo Bell MD - 06/20/2024 3:15 PM EST Images from the original note were not included. Jeremie Bennett 1940 Jeremie Bennett is a 83 y.o. male presents with chief complaint of Consult (Port - Ref Dr LAMAS Tonguecancer/Having pacemaker generator change on 07-10-24 / [place] cardiology Dr Patel.) HPI: Mr. Bennett is a 83 year old male with a past medical history of ventricular tachycardia, obstructivesleep apnea, type 2 diabetes, prostate cancer, and throat cancer who presented to the office today for evaluation of a port placement. Pt is beginning chemotherapy and radiation for his throat canceron July 04. Pt will be doing chemotherapy for 6-7 weeks and radiation through the first week in August. Pt has a pacemaker on the left side. Pt does take Plavix and has held it in the past for surgeries without issues. Pt has a surgical history of cholecystectomy, prostate surgery, bilateral inguinal hernia repairs, and pacemaker. Pt will be receiving a new pacemaker on July 10. SUBJECTIVE: MEDICATIONS: ALLERGIES Current Outpatient Medications Medication Instructions amLODIPine (NORVASC) 5 mg, Daily aspirin 81 mg, Daily utfqvleclt-ridvykyoekmqb-qqeyomml 50-325-40 MG tablet 1 tablet, Every 4 hours PRN clopidogrel (PLAVIX) 75 mg, Daily diphenhydrAMINE-acetaminophen (Tylenol PM) 25-500 MG per tablet 1 tablet, Nightly PRN dorzolamide (Trusopt) 2 % ophthalmic solution 1 drop, 3 times daily famotidine (PEPCID) 20 mg, Daily fluticasone (Flonase) 50 MCG/ACT nasal spray 1 spray, Daily furosemide (LASIX) 20 mg, Oral, Daily glucose blood test strip 1 each, As needed irbesartan (AVAPRO) 300 mg, Nightly isosorbide mononitrate ER (IMDUR) 30 mg, Daily Lancets (onetouch ultrasoft) lancets 1 each, As needed latanoprost (Xalatan) 0.005 % ophthalmic solution 1 drop, Nightly loperamide (IMODIUM A-D) 2 mg, 4 times daily PRN metFORMIN XR (GLUCOPHAGE-XR) 500 mg, Oral, 2 times daily Multiple Vitamin (multivitamin) tablet 1 tablet, Daily omega-3 acid ethyl esters (LOVAZA) 1 g, 2 times daily omeprazole (PRILOSEC) 40 mg, Daily before breakfast psyllium (Metamucil 3 in 1 Daily Fiber) 400 MG capsule 3 capsules, Daily Rimegepant Sulfate (Nurtec) 75 MG tablet dispersible 1 tab PO prn migraine. rosuvastatin (CRESTOR) 10 mg, Daily sotalol (BETAPACE) 80 mg tiZANidine (Zanaflex) 4 MG tablet TAKE 1/2 TO 1 TABLET BY MOUTH AT BEDTIME zonisamide (ZONEGRAN) 25 mg, Oral, 2 times daily Allergies Allergen Reactions Niacin Itching and Unknown Wound Dressing Adhesive Unknown PAST MEDICAL HISTORY: SOCIAL HISTORY SURGICAL HISTORY: Past Medical History: Diagnosis Date Anemia At [...] with diabetic neuropathy (CMS/HCC) Ventricular tachycardia (CMS/HCC) Social History Tobacco Use Smoking status: Former Current packs/day: 1.00 Types: Cigarettes Passive exposure: Past Tobacco comments: Years smoked: 25 Substance Use Topics Alcohol use: Yes Comment: 1 or 2 drinks/day, monthly or less; Caffeine: 1 drink/day Drug use: Never Past Surgical History: Procedure Laterality Date CARDIAC CATHETERIZATION 08/30/2019 CATARACT EXTRACTION Bilateral CERVICAL FUSION 2016 C3-C4-C5 CHOLECYSTECTOMY HERNIA REPAIR 2002 INSERT / REPLACE / REMOVE PACEMAKER 2015 pacemaker insertion OTHER SURGICAL HISTORY 2004 ablation OTHER SURGICAL HISTORY 2006 sphincterotomy MS CHOLECYSTECTOMY 02/2020 Laparoscopic Cholecystectomy - [place] MS IMPLANT ARTIFICIAL SPHINCTER 2017 PROSTATE 2000 TONSILLECTOMY 1970 US GUIDED BIOPSY LYMPH NODE SUPERFICIAL 06/05/2024 US GUIDED BIOPSY LYMPH NODE SUPERFICIAL 06/05/2024 REVIEW OF SYMPTOMS: Review of Systems Constitutional: Negative for appetite change, chills, fatigue, fever and unexpected weight change. HENT: Negative for congestion, ear pain, hearing loss, nosebleeds, rhinorrhea and sore throat. Eyes: Negative for pain and visual disturbance. Respiratory: Negative for cough, shortness of breath and wheezing. Cardiovascular: Negative for chest pain, palpitations and leg swelling. Gastrointestinal: Negative for abdominal pain, blood in stool, constipation, diarrhea, nausea and vomiting. Genitourinary: Negative for difficulty urinating, dysuria and hematuria. Neurological: Negative for dizziness, weakness, light-headedness, numbness and headaches. OBJECTIVE: Visit Vitals BP 120/74 Ht 5' 3 Wt 170 lb BMI 30.11 kg/m Smoking Status Former BSA 1.85 m Physical Exam Constitutional: General: He is not in acute distress. Appearance: Normal appearance. Eyes: General: No scleral icterus. Cardiovascular: Rate and Rhythm: Normal rate and regular rhythm. Heart sounds: Normal heart sounds. No murmur heard. No friction rub. No gallop. Pulmonary: Effort: Pulmonary effort is normal. Breath sounds: Normal breath sounds. No wheezing, rhonchi or rales. Abdominal: General: There is no distension. Palpations: Abdomen is soft. Tenderness: There is no abdominal tenderness. Musculoskeletal: Right lower leg: No edema. Left lower leg: No edema. Skin: General: Skin is warm and dry. Neurological: Mental Status: He is alert. ASSESSMENT AND PLAN: Assessment/Plan Diagnoses and all orders for this visit: Poor intravenous access Carcinoma of oropharynx (CMS/HCC) Plan will be to place a port. The procedure,benefits, risks of port placement including risks of bleeding, infection, pneumothorax, port malfunction were discussed with the patient. With the pacemaker on the left side, port will be placed on the right. 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 Left mandible biopsywas benign tissue with inflammation only. 06/05/[address] biopsy was positive for metastatic non keratinizing SCC, High risk HPV FISH was positive in tumor cells, P16 by IHC was equivocal. As per the [facility] tumor board recommendation is either doing extensive surgery or concurrent chemoradiation and patient and family decided togo with concurrent chemoradiation. He has bilateral hearing deficiency and tinnitus for years for which she wears hearing aids intermittently. However he can hear the conversation today and he said his hearing deficiency is mostly on high-frequency. Plan: Obtain audiogram to assess his current hearing loss status. Chemo consent obtained for both the weekly cisplatin and weekly carboplatin Taxol and concurrent with radiation depending on the results of the audiogram. Plan for concurrent chemoradiation to start with the weekly cisplatin if the audiogram test revealed only mild to moderate hearing loss however if it severe then we will change to carboplatin and Taxol. Dr. Gray is debating between musicians radiation in 1 versus concurrent chemoradiation setting that he has severe Last week as the benefit is mostly from the cisplatin and last from the carboplatin and Taxol. Return on week 2 of treatment. Patient Instructions: patient will call to get hearing test Dr Ham will consent for carbo/taxol and cisplatin decide after hearing test chemo with XRT port referal CHEMO PLAN No Active Chemotherapy History of Present Illness SANTOSH Adam is an 83-year-old gentleman who lives in [facility] was referred to our medical oncology office from [facility] for his a new base of the tongue squamous cell carcinoma after was seen at [facility] ENT and underwent a biopsy. He is here as an initial consult accompanied by his spouse. He underwent FNA biopsy of the right enlarged cervical lymph node which came back positive for p16 positive squamous cell carcinoma. PET CT scan 03/27/24 revealed FDG avidity bilateral cervical nodes and left mandible. CT of the neck 02/14/24 revealed incidental right parotid nodule with enlarged right level 2B and left level 2A lymph nodes. There is stenosis of the left ICAas well. 04/07/2024 in office biopsy at ENT office of the left mandible irregularities revealed benign tissue with inflammation. 05/11/2024 direct laryngoscopy with biopsy of the right base of the tongue lesion revealed p16 positive squamous cell carcinoma. Tumor board at [facility] in [facility] and the recommended concurrent chemoradiation. Past medical history is positive for ventricular tachycardia with pacemaker in place and is planning to have it replaced with a end of June 2024. He has ahistory of coronary artery disease with stents on Plavix. And history of diabetes mellitus type 2 hypertension and hyperlipidemia. He quit smoking about 42 years ago. He quit using smokeless tobacco as well. He drinks alcohol about 2 standard drinks of alcohol per week. His case was discussed at head and neck tumor board. They stated he needs tohave a biopsy of the contralateral lymph node that lit up on PET/CT. She was scheduled to have it done on 06/05/2024. Option of treatment would be surgery versus concurrent chemoradiation. Surgery would involve transoral robotic surgery to approach and fully resect the primary tumor and neck dissection to remove the cervical lymph nodes. He may still need radiation afterwards. Patient discussed the plans are or treatment options with his family and they decided to proceed with concurrent chemoradiation. Since he lives in [place] he was referred by Dr. Mary Ly from ENT at [facility] to our medical oncology and radiation oncology at [facility]. 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 Left mandible biopsy was benign tissue with inflammation only. 06/05/[address] biopsy was positive for metastatic non keratinizing SCC, High risk HPV FISH was positive in tumor cells, P16 by IHC was equivocal. Review of systems positive for some dysphagia and pain with swallowing and appetite is not that great. Rest of 14 point systems were reviewed and are otherwise negative. Intake Vitals/Pain Assessment 06/14/24 09:53 Height 5 ft 6 in Weight 77.564 kg BMI 27.6 Body Fat % 47.09 BP 103/67 Blood Pressure Location Rt brachial Position Sitting Temp 97.6 F Temp Source Temporal Pulse 69 Pulse Source NIBP Respiration 20 Pulse Oximetry (%) 96 Oxygen Delivery Method room air Are you having pain? No Intake Visit Reasons: NEW-Mal Miguel base of tongue Accompanied by: Spouse Allergies adhesive Allergy (Unknown, Verified 06/14/24 10:47) rash niacin (Niaspan Extended-Release) Allergy (Unknown, Verified 06/14/24 10:47) hives - Last Reconciled 06/14/24 by EDIS Negron albuterol sulfate 90 mcg/actuation 1 inh inhalation Q4-6H PRN amlodipine 5 mg PO DAILY aspirin 81 mg PO DAILY tgnetyi-gbifolrkfvwpu-yrqrysrf 250-250-65 mg (Excedrin Migraine) 1 tab PO Q4-6H PRN clopidogrel 75 mg PO DAILY diphenhydramine-acetaminophen 25-500 mg (Tylenol PM Extra Strength) 1 tab PO QHSPRN dorzolamide 2% drps ophthalmic (eye) famotidine 20 mg PO DAILY furosemide 20 mg PO DAILY irbesartan 300 mg PO DAILY isosorbide mononitrate ER mg PO latanoprost 0.005% drps ophthalmic (eye) DAILY metformin 500 mg PO DAILY multivitamin (Multiple Vitamins tablet) 1 tab PO DAILY omeprazole 40 mg PO DAILY rosuvastatin 10 mg PO DAILY sotalol 80 mg PO DAILY tizanidine 4 mg PO ONCE zonisamide mg PO Gastrointestinal Is the patient taking opioids for pain control?: No Bowel Protocol for Opioids Given: No Bowel Pattern: Irregular Bowel Movement Aid(s): [place] Fall Precaution Measures Taken: Patient in chair Nurse's Note: Patient is referr Cancer treatment education bag and all contents including My cancer treatmentguide, signs and symptoms sheet, yellow fever card, magnet, caregiver resource list, [facility] nutrition guide, and cancer rehabilitation pamphlet provided anddiscussed with patient. Patient also provided with copy of consent, doctors business card, and clinic contact information. Printed drug information also provided and discussed with patient. All questions were answered to patient?s satisfaction and patient verbalizes understanding. ed by Dr Mary Ly. Patient report some trouble swallowing as well. Had procedure 05/11 at . Patient is going to have pace maker replaced 07/10/2024 at [facility] Medical History Medical History (Updated 06/14/24 @ 11:03 by EDIS Minaya) 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 GERD (gastroesophageal reflux disease) Arthritis Vitamin D deficiency, unspecified Obstructive sleep apnea Hypercholesteremia Excessive daytime sleepiness Essential hypertension DM (diabetes mellitus) Malignant neoplasm of floor of mouth Hernia Hiatal Hernia Surgical History Surgical History (Updated 06/13/24 @ 14:46 by EDIS Minaya) History of biopsy Right base of tongue biopsy H/O glossectomy History of bronchoscopy History of laryngoscopy History of prostatectomy History of neck surgery History of cholecystectomy History of heart artery stent Family History Family History Father Glaucoma Mother History of stroke Legacy FamHx Problem: Diagnosed with Stroke Family history of emphysema Hypertension Heart disease Sister Cancer Legacy FamHx Problem: Diagnosed with Cancer Social History Social History (Updated 06/13/24 @ 14:48 by EDIS Minaya) Smoking status: Former smoker What tobacco products do you use: cigarettes Smoking quit date/years: >15 years ago Do you use any of these nicotine containing products: smokeless tobacco Smokeless tobacco user details: former Within the past year, how often did you have a drink containing alcohol: monthly or less Alcohol type details: 2 glasses of wine per week. Within the past year, how many standard drinks containing alcohol did you have on a typical day: 3 or 4 Within the past year, how often did you have six or more drinks on one occasion: never AUDIT-C Alcohol total score: 2 AUDIT-C Alcohol score interpretation: A score less than 4 is consistent with normal alcohol consumption. In the past 12 months, have you used illegal drugs or prescription drugs for non-medical reasons?: Yes Review of Systems ROS Details: All systems reviewed & no additional complaints except as documented General: Patient denied fevers, chills, rigors, weight loss or loss of appetite. Head: Patient denied any headaches or vision changes but positive for persistentbilateral tinnitus and hearing deficiency for which he wears hearing aid. Thoracic: Patient denied any shortness of breath or cough or hemoptysis Cardiovascular patient denies any chest pain or leg edema GI: Patient denies any nausea vomiting rectal bleed diarrhea : Patient denied gross hematuria. Hematology: Patient denied any bleeding from any source. No easy bruising. Lymphatic: No enlarged LAP anywhere. Skin: Normal skin exam no rashes or suspicious lesions. Neurological patient denies any headache or dizziness or focal weakness or sensory changes. Physical Exam EXAM HEENT normocephalic atraumatic pupils are equal and round. I could not see his tongue mass by visual exam of his oral cavity. Neck supple without thyromegaly but with bilateral mildly enlarged cervical lymphadenopathy in the submandibular areas. Chest clear to auscultation bilaterally without wheezing crackles or rhonchi Heart regular rate and rhythm S1-S2 without murmurs gallop or rub Abdomen soft nontender not distended without hepatosplenomegaly or masses clinically Extremities no edema of the lower extremities Skin without any suspicious rashes Lymphatic system no lymphadenopathy in the cervical area axillary areas or inguinal areas bilaterally Neurological exam patient is cooperative alert and oriented x3 no focal deficits. Results - Cancer [facility]tr (Med Onc) LAB RESULTS No Data to Display Dictated By: Talib Faustin MD DD/ [id number] Signed By: <Electronically signed by Talib Faustin MD> 06/14/24 1106 [facility] Work Phone: 1(967) 477-694301-29-2025 Evaluation note* Diagnosis Onset Date Resolution Status Admit Date Squamous cell carcinoma of oropharynx acute June 14 9:25am Tongue cancer acute May 9:25am Squamous cell carcinoma of oropharynx acute June 14 10:28am [facility] Work Phone: 1(683) 297-409401-29-2025 Evaluation note* Diagnosis Onset Date Resolution Status Admit Date Squamous cell carcinoma of oropharynx acute June 14 9:25am Tongue cancer acute May 9:25am Squamous cell carcinoma of oropharynx acute June 14 10:28am Encounter for palliative care acute July 06, 2024 8:00am 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 06, 025 8:00am [facility] Work Phone: 1(195) 207-952301-29-2025 Evaluation note* Diagnosis Onset Date Resolution Status Admit Date Squamous cell carcinoma of oropharynx acute June 14 9:25am Tongue cancer acute May 9:25am Squamous cell carcinoma of oropharynx acute June 14 10:28am Encounter for palliative care acute July 06, 2024 8:00am 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 06, 025 8:00am Cancer associated pain acute Fe bruary 2024 7:36am Nausea acute July 12, 2024 7:36am 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 12, 025 7:36am 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 12, 025 8:29am Tongue cancer acute July 122024 8:29am [facility] Work Phone: 1(625) 621-862901-29-2025 [facility] [place] [address] Cancer Center Note Signed Patient: Jeremie Bennett MR#: [id number] : 1940 Acct:[id number] Age/Sex: 83 / M Type: REG AMB Date of Service: 06/14/24 Copies to: MD Demetrius Harley MD~ Assessment & Plan A/P (1) Squamous cell carcinoma of oropharynx: (2) Tongue cancer: Plan Stage II, 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 Left mandible biopsywas benign tissue with inflammation only. 06/05/[address] biopsy was positive for metastatic non keratinizing SCC, High risk HPV FISH was positive in tumor cells, P16 by IHC was equivocal. As per the [facility] tumor board recommendation is either doing extensive surgery or concurrent chemoradiation and patient and family decided togo with concurrent chemoradiation. He has bilateral hearing deficiency and tinnitus for years for which she wears hearing aids intermittently. However he can hear the conversation today and he said his hearing deficiency is mostly on high-frequency. Plan: Obtain audiogram to assess his current hearing loss status. Chemo consent obtained for both the weekly cisplatin and weekly carboplatin Taxol and concurrent with radiation depending on the results of the audiogram. Plan for concurrent chemoradiation to start with the weekly cisplatin if the audiogram test revealed only mild to moderate hearing loss however if it severe then we will change to carboplatin and Taxol. Dr. Gray is debating between musicians radiation in 1 versus concurrent chemoradiation setting that he has severe Last week as the benefit is mostly from the cisplatin and last from the carboplatin and Taxol. Return on week 2 of treatment. Patient Instructions: patient will call to get hearing test Dr Ham will consent for carbo/taxol and cisplatin decide after hearing test chemo with XRT port referal CHEMO PLAN No Active Chemotherapy History of Present Illness ASNTOSH Adam is an 83-year-old gentleman who lives in [facility] was referred to our medical oncology office from [facility] for his a new base of the tongue squamous cell carcinoma after was seen at [facility] ENT and underwent a biopsy. He is here as an initial consult accompanied by his spouse. He underwent FNA biopsy of the right enlarged cervical lymph node which came back positive for p16 positive squamous cell carcinoma. PET CT scan 03/27/24 revealed FDG avidity bilateral cervical nodes and left mandible. CT of the neck 02/14/24 revealed incidental right parotid nodule with enlarged right level 2B and left level 2A lymph nodes. There is stenosis of the left ICAas well. 04/07/2024 in office biopsy at ENT office of the left mandible irregularities revealed benign tissue with inflammation. 05/11/2024 direct laryngoscopy with biopsy of the right base of the tongue lesion revealed p16 positive squamous cell carcinoma. Tumor board at [facility] in [place] and the recommended concurrent chemoradiation. Past medical history is positive for ventricular tachycardia with pacemaker in place and is planning to have it replaced with a end of June 2024. He has ahistory of coronary artery disease with stents on Plavix. And history of diabetes mellitus type 2 hypertension and hyperlipidemia. He quit smoking about 42 years ago. He quit using smokeless tobacco as well. He drinks alcohol about 2 standard drinks of alcohol per week. His case was discussed at head and neck tumor board. They stated he needs tohave a biopsy of thecontralateral lymph node that lit up on PET/CT. She was scheduled to have it done on 06/05/2024. Option of treatment would be surgery versus concurrent chemoradiation. Surgery would involve transoral robotic surgery to approach and fully resect the primary tumor and neck dissection to remove the cervical lymph nodes. He may still need radiation afterwards. Patient discussed the plans are or treatment options with his family and they decided to proceed with concurrent chemoradiation. Since he lives in [place] he was referred by Dr. Mary Ly from ENT at [facility] to our medical oncology and radiation oncology at [facility]. 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 Left mandible biopsy was benign tissue with inflammation only. 06/05/[address] biopsy was positive for metastatic non keratinizing SCC, High risk HPV FISH was positive in tumor cells, P16 by IHC was equivocal. Review of systems positive for some dysphagia and pain with swallowing and appetite is not that great. Rest of 14 point systems were reviewed and are otherwise negative. Intake Vitals/Pain Assessment 06/14/24 09:53 Height 5 ft 6 in Weight 77.564 kg BMI 27.6 Body Fat % 47.09 BP 103/67 Blood Pressure Location Rt brachial Position Sitting Temp 97.6 F Temp Source Temporal Pulse 69 Pulse Source NIBP Respiration 20 Pulse Oximetry (%) 96 Oxygen Delivery Method room air Are you having pain? No Intake Visit Reasons: NEW-Mal Miguel base of tongue Accompanied by: Spouse Allergies adhesive Allergy (Unknown, Verified 06/14/24 10:47) rash niacin (Niaspan Extended-Release) Allergy (Unknown, Verified 06/14/24 10:47) hives - Last Reconciled 06/14/24 by EDIS Negron albuterol sulfate 90 mcg/actuation 1 inh inhalation Q4-6H PRN amlodipine 5 mg PO DAILY aspirin 81 mg PO DAILY yxxybvl-ommkeofmjjtzr-mabqweip 250-250-65 mg (Excedrin Migraine) 1 tab PO Q4-6H PRN clopidogrel 75 mg PO DAILY diphenhydramine-acetaminophen 25-500 mg (Tylenol PM Extra Strength) 1 tab PO QHSPRN dorzolamide 2% drps ophthalmic (eye) famotidine 20 mg PO DAILY furosemide 20 mg PO DAILY irbesartan 300 mg PO DAILY isosorbide mononitrate ER mg PO latanoprost 0.005% drps ophthalmic (eye) DAILY metformin 500 mg PO DAILY multivitamin (Multiple Vitamins tablet) 1 tab PO DAILY omeprazole 40 mg PO DAILY rosuvastatin 10 mg PO DAILY sotalol 80 mg PO DAILY tizanidine 4 mg PO ONCE zonisamide mg PO Gastrointestinal Is the patient taking opioids for pain control?: No Bowel Protocol for Opioids Given: No Bowel Pattern: Irregular Bowel Movement Aid(s): [place] Fall Precaution Measures Taken: Patient in chair Nurse's Note: Patient is referr Cancer treatment education bag and all contents including My cancer treatmentguide, signs and symptoms sheet, yellow fever card, magnet, caregiver resource list, [facility] nutrition guide, and cancer rehabilitation pamphlet provided anddiscussed with patient. Patient also provided with copy of consent, doctors business card, and clinic contact information. Printed drug information also provided and discussed with patient. All questions were answered to patient?s satisfaction and patient verbalizes understanding. ed by Dr Mary Ly. Patient report some trouble swallowing as well. Had procedure 05/11 at . Patient is going to have pace maker replaced 07/10/2024 at [facility] Medical History Medical History (Updated 06/14/24 @ 11:03 by EDIS Minaya) 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 GERD (gastroesophageal reflux disease) Arthritis Vitamin D deficiency, unspecified Obstructive sleep apnea Hypercholesteremia Excessive daytime sleepiness Essential hypertension DM (diabetes mellitus) Malignant neoplasm of floor of mouth Hernia Hiatal Hernia Surgical History Surgical History (Updated 06/13/24 @ 14:46 by EDIS Minaya) History of biopsy Right base of tongue biopsy H/O glossectomy History of bronchoscopy History of laryngoscopy History of prostatectomy History of neck surgery History of cholecystectomy History of heart artery stent Family History Family History Father Glaucoma Mother History of stroke Legacy FamHx Problem: Diagnosed with Stroke Family history of emphysema Hypertension Heart disease Sister Cancer Legacy FamHx Problem: Diagnosed with Cancer Social History Social History (Updated 06/13/24 @ 14:48 by EDIS Minaya) Smoking status: Former smoker What tobacco products do you use: cigarettes Smoking quit date/years:>15 years ago Do you use any of these nicotine containing products: smokeless tobacco Smokeless tobacco user details: former Within the past year, how often did you have a drink containing alcohol: monthly or less Alcohol type details: 2 glasses of wine per week. Within the past year, how many standard drinks containing alcohol did you have on a typical day: 3 or 4 Within the past year, how often did you have six or more drinks on one occasion: never AUDIT-C Alcohol total score: 2 AUDIT-C Alcohol score interpretation: A score less than 4 is consistent with normal alcohol consumption. In the past 12 months, have you used illegal drugs or prescription drugs for non-medical reasons?: Yes Review of Systems ROS Details: All systems reviewed & no additional complaints except as documented General: Patient denied fevers, chills, rigors, weight loss or loss of appetite. Head: Patient denied any headaches or vision changes but positive for persistentbilateral tinnitus and hearing deficiency for which he wears hearing aid. Thoracic: Patient denied any shortness of breath or cough or hemoptysis Cardiovascular patient denies any chest pain or leg edema GI: Patient denies any nausea vomiting rectal bleed diarrhea : Patient denied gross hematuria. Hematology: Patient denied any bleeding from any source. No easy bruising. Lymphatic: No enlarged LAP anywhere. Skin: Normal skin exam no rashes or suspicious lesions. Neurological patient denies any headache or dizziness or focal weakness or sensory changes. Physical Exam EXAM HEENT normocephalic atraumatic pupils are equal and round. I could not see his tongue mass by visual exam of his oral cavity. Neck supple without thyromegaly but with bilateral mildly enlarged cervical lymphadenopathy in the submandibular areas. Chest clear to auscultation bilaterally without wheezing crackles or rhonchi Heart regular rate and rhythm S1-S2 without murmurs gallop or rub Abdomen soft nontender not distended without hepatosplenomegaly or masses clinically Extremities no edema of the lower extremities Skin without any suspicious rashes Lymphatic system no lymphadenopathy in the cervical area axillary areas or inguinal areas bilaterally Neurological exam patient is cooperative alert and oriented x3 no focal deficits. Results - Cancer Ctr (Med Onc) LAB RESULTS No Data to Display Dictated By: Talib Faustin MD DD/ [id number] Signed By: 06/14/24 1106 [facility]01-20-2025 Hospital Discharge instructions* Discharge Instructions* Bob Larson RN - 06/05/2024 2:00 PM EST You received moderate sedation: - Do not drive a car, or operate any machinery or power tools of any kind. - Do not drink any alcoholic drinks. - Do not take any over the counter medications that may cause drowsiness. - Do not make any important decisions or sign any legal documents. - You need to have a responsible adult accompany you home. - You may resume your normal diet. - We strongly suggest that a responsible adult be with you for the rest of the day and also during the night. This is for your protection and safety. For questions related to your procedure: Please call [phone] between the hours of 7:00am-5:00pm Wednesday through Wednesday. Please call [phone] after 5:00pm and on weekends and holidays. In the event of an emergency call 911 or go to your nearest emergency room. [facility] Work Phone: 1(115) 941-787801-20-2025 Miscellaneous Notes* Post-Procedure Note - Juan Albright MD - 06/05/2024 1:00 PM EST Interventional Radiology Post-Procedure Note Left cervical chain lymph node biopsy Procedure Details: Technically successful and uncomplicated left cervical chain lymph node biopsy. Please see PACS for full procedural details. Patient Tolerance: good Complications: None Indication for procedure: The encounter diagnosis was Enlarged submental lymph node. Pre-Procedure Verification and Time Out: [facility] Pre-procedure Verification completed TIME OUT - Final Verification completed immediately prior to procedure start DEBRIEF completed General Information: Date/Time of Procedure: 06/05/24 at 4:17 PM Indication(s): Hx of SCC, enlarged left cervical chain lymph node Findings: See PACS Procedure performed by: Juan Albright MD Marine Animal Trainer(s): Dr. Gaby Perez MD Estimated Blood Loss (mL): none Specimen: Yes, 1 core sample Informed Consent: written consent obtained Prep: Ultrasound Guided Insertion: Yes Large Drape, Hand Hygiene, Surgical Cap, Surgical Mask, Sterile Gown, Sterile Gloves, Glasses, and Scrubs Patient Position: Supine Site Prep: chlorhexidine, draped, usual sterile procedure followed Anesthesia/Medications: Procedural Sedation: Fentanyl: 50 mcg Versed: 0.5 mg 1% Lidocaine: 4 mL Juan Albright MD, PGY-6 Interventional Radiology IR pager: [phone] NON-Urgent trail construction worker weekends and after hours weekdays (5pm - 5am) IR pager: [phone] Urgent & emergent trail construction worker weekends and after hours weekdays (5pm-7am) IR pager: [phone] * Pre-Procedure Note - Juan Albright MD - 06/05/2024 1:00 PM EST INTERVENTIONAL RADIOLOGY PRE-PROCEDURE NOTE Jeremie Bennett is a 83 y.o. male with PMHx of SCC with enlarged left cervical LNs who presents to the interventional radiology department for LN biopsy. Procedure: lymph node biopsy Indication for procedure: The encounter diagnosis was Enlarged submental lymph node. Past Medical History: Diagnosis Date Anemia Arrhythmia Arthritis Chronic headaches Dysphagia GERD (gastroesophageal reflux disease) Head and neck cancer (Multi) HL (hearing loss) Hypertension Sleep apnea Type 2 diabetes mellitus Vertigo Past Surgical History: Procedure Laterality Date CARDIAC CATHETERIZATION CATARACT EXTRACTION HERNIA REPAIR PROSTATE SURGERY TONSILLECTOMY Relevant Labs: Lab Results Component Value Date CREATININE 0.96 04/11/2024 EGFR 78 04/11/2024 Planned Sedation/Anesthesia: Moderate Directed physical examination: General: Normal appearance, behavior, cognition and NAD Heart: Heart regular rate and rhythm Lungs: No increased work of breathing Abdomen: soft and nontender Psych: oriented to time, place and person Current Outpatient Medications: amLODIPine (Norvasc) 5 mg tablet, Take 1 tablet (5 mg) by mouth once daily., Disp: , Rfl: aspirin 81 mg EC tablet, Take 1 tablet (81 mg) by mouth once daily., Disp: , Rfl: ecugoifiby-iyqyjnijevuoj-bdrd 50-325-40 mg tablet, Take 1 tablet by mouth every 4 hours if needed.,Disp: , Rfl: clopidogrel (Plavix) 75 mg tablet, Take 1 tablet (75 mg) by mouth once daily., Disp: , Rfl: diphenhydrAMINE-acetaminophen (Tylenol PM) 25-500 mg per tablet, Take 1 tablet by mouth once daily as needed., Disp: , Rfl: dorzolamide (Trusopt) 2 % ophthalmic solution, Administer 1 drop into both eyes 2 times a day., Disp: , Rfl: famotidine (Pepcid) 20 mg tablet, Take 1 tablet (20 mg) by mouth once daily., Disp: , Rfl: fluticasone (Flonase) 50 mcg/actuation nasal spray, Administer 1 spray into each nostril once daily., Disp: , Rfl: furosemide (Lasix) 20 mg tablet, Take 1 tablet (20 mg) by mouth once daily., Disp: , Rfl: irbesartan (Avapro) 300 mg tablet, Take 1 tablet (300 mg) by mouth once daily., Disp: , Rfl: isosorbide mononitrate ER (Imdur) 30 mg 24 hr tablet, Take 1 tablet (30 mg) by mouth once daily., Disp: , Rfl: lancets misc, 1 each., Disp: , Rfl: latanoprost (Xalatan) 0.005 % ophthalmic solution, Administer 1 drop into both eyes once daily at bedtime., Disp: , Rfl: loperamide (Imodium A-D) 2 mg tablet, Take 1 tablet (2 mg) by mouth 4 times a day as needed., Disp:, Rfl: metFORMIN XR 500 mg 24 hr tablet, Take 1 tablet (500 mg) by mouth once daily., Disp: , Rfl: multivitamin tablet, Take 1 tablet by mouth once daily., Disp: , Rfl: omeprazole (PriLOSEC) [address] capsule, Take 1 capsule (40 mg) by mouth once daily., Disp: , Rfl: psyllium (Metamucil) 3.4 gram packet, Take 3 capsules by mouth once daily., Disp: , Rfl: rosuvastatin (Crestor) 10 mg tablet, Take 1 tablet (10 mg) by mouth once daily., Disp: , Rfl: sotalol (Betapace) 80 mg tablet, Take 0.5 tablets (40 mg) by mouth 2 times a day., Disp: , Rfl: tiZANidine (Zanaflex) 4 mg tablet, Take 1 tablet (4 mg) by mouth once daily., Disp: , Rfl: zonisamide (Zonegran) 25 mg capsule, Take 1 capsule (25 mg) by mouth twice a day., Disp: , Rfl: No current facility-administered medications for this encounter. Mallampati: III (soft and hard palate and base of uvula visible) ASA Score: ASA 3 - Patient with moderate systemic disease with functional limitations Benefits, risks and alternatives of procedure and planned sedation have been discussed with the patient and/or their franchise sales representative. All questions answered and they agree to proceed. Juan Albright MD, PGY-6 Vascular & Interventional Radiology IR pager: [phone] NON-Urgent trail construction worker weekends and after hours weekdays (5pm - 5am) IR pager: [phone] Urgent & emergent trail construction worker weekends and after hours weekdays (5pm-7am) IR pager: [phone] [facility] Work Phone: [phone] 440-809701-20-2025 Note* Post-Procedure Note - Juan Albright MD - 06/05/2024 1:00 PM EST Interventional Radiology Post-Procedure Note Left cervical chain lymph node biopsy Procedure Details: Technically successful and uncomplicated left cervical chain lymph node biopsy. Please see PACS for full procedural details. Patient Tolerance: good Complications: None Indication for procedure: The encounter diagnosis was Enlarged submental lymph node. Pre-Procedure Verification and Time Out: Procedure Location procedure area HUDDLE - Pre-procedure Verification completed TIME OUT - Final Verification completed immediately prior to procedure start DEBRIEF completed General Information: Date/Time of Procedure: 06/05/24 at 4:17 PM Indication(s): Hx of SCC, enlarged left cervical chain lymph node Findings: See PACS Procedure performed by: Juan Albright MD Marine Animal Trainer(s): Dr. Gaby Perez MD Estimated Blood Loss (mL): none Specimen: Yes, 1 core sample Informed Consent: written consent obtained Prep: Ultrasound Guided Insertion: Yes Large Drape, Hand Hygiene, Surgical Cap, Surgical Mask, Sterile Gown, Sterile Gloves, Glasses, and Scrubs Patient Position: Supine Site Prep: chlorhexidine, draped, usual sterile procedure followed Anesthesia/Medications: Procedural Sedation: Fentanyl: 50 mcg Versed: 0.5 mg 1% Lidocaine: 4 mL Juan Albright MD, PGY-6 Interventional Radiology IR pager: [phone] NON-Urgent trail construction worker weekends and after hours weekdays (5pm - 5am) IR pager: [phone] Urgent & emergent trail construction worker weekends and after hours weekdays (5pm-7am) IR pager: [phone] [facility] Work Phone: 1([phone] 414-403301-20-2025 Note* Pre-Procedure Note - Juan Albright MD - 06/05/2024 1:00 PM EST INTERVENTIONAL RADIOLOGY PRE-PROCEDURE NOTE Jeremie Bennett is a 83 y.o. male with PMHx of SCC with enlarged left cervical LNs who presents to the interventional radiology department for LN biopsy. Procedure: lymph node biopsy Indication for procedure: The encounter diagnosis was Enlarged submental lymph node. Past Medical History: Diagnosis Date Anemia Arrhythmia Arthritis Chronic headaches Dysphagia GERD (gastroesophageal reflux disease) Head and neck cancer (Multi) HL (hearing loss) Hypertension Sleep apnea Type 2 diabetes mellitus Vertigo Past Surgical History: Procedure Laterality Date CARDIAC CATHETERIZATION CATARACT EXTRACTION HERNIA REPAIR PROSTATE SURGERY TONSILLECTOMY Relevant Labs: Lab Results Component Value Date CREATININE 0.96 04/11/2024 EGFR 78 04/11/2024 Planned Sedation/Anesthesia: Moderate Directed physical examination: General: Normal appearance, behavior, cognition and NAD Heart: Heart regular rate and rhythm Lungs: No increased work of breathing Abdomen: soft and nontender Psych: oriented to time, place and person Current Outpatient Medications: amLODIPine (Norvasc) 5 mg tablet, Take 1 tablet (5 mg) by mouth once daily., Disp: , Rfl: aspirin 81 mg EC tablet, Take 1 tablet (81 mg) by mouth once daily., Disp: , Rfl: ipuxjhvmos-pptlyenasbpgm-hwcj 50-325-40 mg tablet, Take 1 tablet by mouth every 4 hours if needed.,Disp: , Rfl: clopidogrel (Plavix) 75 mg tablet, Take 1 tablet (75 mg) by mouth once daily., Disp: , Rfl: diphenhydrAMINE-acetaminophen (Tylenol PM) 25-500 mg per tablet, Take 1 tablet by mouth once daily as needed., Disp: , Rfl: dorzolamide (Trusopt) 2 % ophthalmic solution, Administer 1 drop into both eyes 2 times a day., Disp: , Rfl: famotidine (Pepcid) 20 mg tablet, Take 1 tablet (20 mg) by mouth once daily., Disp: , Rfl: fluticasone (Flonase) 50 mcg/actuation nasal spray, Administer 1 spray into each nostril once daily., Disp: , Rfl: furosemide (Lasix) 20 mg tablet, Take 1 tablet (20 mg) by mouth once daily., Disp: , Rfl: irbesartan (Avapro) 300 mg tablet, Take 1 tablet (300 mg) by mouth once daily., Disp: , Rfl: isosorbide mononitrate ER (Imdur) 30 mg 24 hr tablet, Take 1 tablet (30 mg) by mouth once daily., Disp: , Rfl: lancets misc, 1 each., Disp: , Rfl: latanoprost (Xalatan) 0.005 % ophthalmic solution, Administer 1 drop into both eyes once daily at bedtime., Disp: , Rfl: loperamide (Imodium A-D) 2 mg tablet, Take 1 tablet (2 mg) by mouth 4 times a day as needed., Disp:, Rfl: metFORMIN XR 500 mg 24 hr tablet, Take 1 tablet (500 mg) by mouth once daily., Disp: , Rfl: multivitamin tablet, Take 1 tablet by mouth once daily., Disp: , Rfl: omeprazole (PriLOSEC) [address] capsule, Take 1 capsule (40 mg) by mouth once daily., Disp: , Rfl: psyllium (Metamucil) 3.4 gram packet, Take 3 capsules by mouth once daily., Disp: , Rfl: rosuvastatin (Crestor) 10 mg tablet, Take 1 tablet (10 mg) by mouth once daily., Disp: , Rfl: sotalol (Betapace) 80 mg tablet, Take 0.5 tablets (40 mg) by mouth 2 times a day., Disp: , Rfl: tiZANidine (Zanaflex) 4 mg tablet, Take 1 tablet (4 mg) by mouth once daily., Disp: , Rfl: zonisamide (Zonegran) 25 mg capsule, Take 1 capsule (25 mg) by mouth twice a day., Disp: , Rfl: No current facility-administered medications for this encounter. Mallampati: III (soft and hard palate and base of uvula visible) ASA Score: ASA 3 - Patient with moderate systemic disease with functional limitations Benefits, risks and alternatives of procedure and planned sedation have been discussed with the patient and/or their franchise sales representative. All questions answered and they agree to proceed. Juan Albright MD, PGY-6 Vascular & Interventional Radiology IR pager: [phone] NON-Urgent trail construction worker weekends and after hours weekdays (5pm - 5am) IR pager: [phone] Urgent & emergent trail construction worker weekends and after hours weekdays (5pm-7am) IR pager: [phone] [facility] Work Phone: [phone] 146-158901-14-2025 History of Present illness Narrative* Mary Ly MD - 05/30/2024 11:45 AM EST HEAD AND NECK SURGERY FOLLOW UP [facility] Referring Provider: Dr. Litzy FROST I had the pleasure of seeing Jeremie Bennett as a follow up today. Spouse, brother accompanies him and assists with history and treatment planning. Treatment history: - FNA biopsy right enlarged cervical lymph node, p16+ SCC - PET with FDG avidity bilateral cervical nodes, left mandible - 04/07/24 in-office biopsy left mandible irregularity, benign tissue and inflammation - 05/11/24 direct laryngoscopy with biopsy of right base of tongue lesion, pathology p16+ SCC Returns today after surgery to discuss next steps. He is doing well. Weight stable at 168 lbs (prior 170 lbs). Swallowing well, mild pain. 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 The patient denies having prior trauma or surgery to their head and neck. There is not a personal or family history of blood clots, easy bleeding or bruising, or anesthesia concerns. They live at home with . Tobacco use: The patient reports that he quit smoking about 42 years ago. His smoking use included cigarettes. He has quit using smokeless tobacco. Alcohol Use: The patient reports current alcohol use of about 2.0 standard drinks of alcohol per week. Physical Examination Vitals: Temp 36.8 C (98.2 F) (Temporal) Ht 1.626 m (5' 4 ) Wt 76.3 kg (168 lb 4.8 oz) BMI 28.89 kg/m General: Examination reveals a well-developed, well-nourished [...] mucosa at tooth root left lower mandible is improving Oropharynx: There are no mucosal abnormalities noted [...] lymph node Procedure Note: Diagnostic Flexible Laryngoscopy (47844) Indication: patient symptoms requiring evaluation of pharyngeal/laryngeal/hypopharyngeal structures Surgeon: Mary Ly MD Informed Consent: The procedure, risks, and [...] The vocal folds adduct and abduct fully. Subtle fullness/fibrosis right base of tongue Attestation: I performed the procedure in its entirety, or was present with the resident/fellow forthe entirety of the procedure. DATA REVIEWED: Radiology: I personally reviewed the PET from 03/29/24 which demonstrated FDG avidity in bilateral lymph nodes and left mandible. CT neck with incidental right parotid nodule, enlarged right level 2band left level 2a lymph nodes, stenosis of left ICA. Review of pathology: I reviewed the pathology from 05/11/24 shwoing p16+ scc, pathology from 04/07/24 showing benign tissue. 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 - Dicussed at head and neck tumor board for T1N1M0 p16+ SCC of right base of tongue, needs to have biopsy of contralateral lymph node that lit up on PET. This is scheduled for 06/05. - Reviewed treatment options and the multidisciplinary team approach to care including surgery versus concurrent chemoradiation. Surgery would involve transoral robotic surgery to approach and fully resect the primary tumor and neck dissection to remove the cervical lymph nodes. Reviewed post-operative admission and possibility of a temporary feeding tube. Risks and benefits of surgery discussed including pain, bleeding, changes in swallowing, voice and breathing, and risks of anesthesia. Also discussed adjuvant therapy including the possibility of radiation and/or chemotherapy depending on the features I the final pathology. Reviewed that for HPV mediated tumors, another treatment option may be concurrent chemotherapy in combination with radiation and he would have appointments with our medical and radiation oncology colleagues to discuss further. Reviewed briefly the need for continued surveillance and close monitoring per NCCN guidelines after completion of treatment. - After discussion, patient and family would like to proceed with concurrent chemoradiation. He lives in [place], referrals to med onc and rad onc placed today to be setup locally at [facility]. I have also reached out to Dr Gray - He will need iris dx testing done prior to starting treatment - I will follow up the biopsy and call him with results - I will see him after treatment for cancer surveillance Mary Ly MD 24 modifier used due to extensive discussion and coordination of cancer treatment documented in this encounter[facility] Work Phone: [phone] 259-610212-26-2024 Hospital Discharge instructions* Discharge Instructions* Jessica Carreon MD - 05/11/2024 9:09 AM EST Discharge instructions: Do not make any serious decisions over the next 24 hours. It is normal to have some nausea after anesthesia. It is normal to have a sore throat and some coughing after surgery. You may have some bloody spit due to the biopsy site. OK to shower tomorrow. Tylenol and ibuprofen can be taken for pain and if that does not suffice you can take the oxycodonefor breakthrough pain over the next day. A stool softener was prescribed because the narcotics can slow your bowel movements. Do not drive while taking narcotics. If you experience severe fever, pain, bleeding, difficulty breathing or swallowing please come to your nearest ED. 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] Procedures Direct Laryngoscopy 27796 - MS LARYNGOSCOPY W/WO TRACHEOSCOPY DX EXCEPT Bronchoscopy 08151 - [facility] INCL FLUOR GDNCE DX W/CELL WASHG SPX Esophagoscopy 84113 - [place] ESOPHAGOSCOPY FLEXIBLE TRANSORAL DIAGNOSTIC Surgeons Panel 1: * Mary Ly - Primary Panel 2: * Mary Ly - Primary Resident/Fellow/Other Marine Animal Trainer: Surgeons and Role: Panel 1: * Riana Vela PA-C - Resident - Assisting Staff: Washtub Worker Helper: Jameel Camargo Person: Simon Fitzgeraldub Person: Reggie Anesthesia Staff: Anesthesiologist: Gabo Munoz MD Grievance Manager: Candice Aceves MD; Delvis Santana MD Procedure Summary Anesthesia: Anesthesia type not filed in the log. ASA: III Estimated Blood Loss: 5mL Intra-op Medications: Administrations occurring from 0700 to 0835 on 05/11/24: Medication Name Total Dose sodium chloride 0.9 % irrigation solution 1,000 mL oxymetazoline (Afrin) 0.05 % nasal spray 30 mL sterile water irrigation solution 1,000 mL dexAMETHasone (Decadron) 10 mg/mL 4 mg esmolol 10 mg/mL 30 mg fentaNYL (Sublimaze) injection 50 mcg/mL 100 mcg lidocaine (Xylocaine) 2 % 70 mg phenylephrine (Miguel-Synephrine) injection 200 mcg propofol (Diprivan) injection 10 mg/mL 120 mg rocuronium 10 mg/mL 70 mg Anesthesia Record Intraprocedure I/O Totals None Specimen: ID Type Source Tests Collected by Time 1 : RIGHT BASE OF TONGUE Tissue TONGUE DORSUM BIOPSY SURGICAL PATHOLOGY EXAM Mary Ly MD 05/11/2024 0802 2 : RIGHT BASE OF TONGUE #2 Tissue TONGUE DORSUM BIOPSY SURGICAL PATHOLOGY EXAM Mary Ly MD 05/11/2024 0822 3 : RIGH BASE OF TONGUE Tissue TONGUE RESECTION SURGICAL PATHOLOGY EXAM Mary Ly MD 05/11/2024 0851 Drains and/or Catheters: * None in log * Findings: easy grade 1 view with dedo. Right base of tongue biopsy frozen returned as carcinoma, suspicious for invasion. Edentulous, tonsils surgically absent. Indications: Jeremie Bennett is an 83 y.o. 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 The patient was seen in the preoperative area. The risks, benefits, complications, treatment options, non-operative alternatives, expected recovery and outcomes were discussed with the patient. The possibilities of reaction to medication, pulmonary aspiration, injury to surrounding structures, bleeding, recurrent infection, the need for additional procedures, failure to diagnose a condition, and creating a complication requiring transfusion or operation were discussed with the patient. The patient concurred with the proposed plan, giving informed consent. The site of surgery was properly noted/marked if necessary per policy. The patient has been actively warmed in preoperative area. Preopera tive antibiotics are not indicated. Venous thrombosis prophylaxis have been ordered including bilateral sequential compression devices Procedure Details: Patient was seen and evaluated in the pre-operative area. Informed consent was obtained as described above. Patient was then taken to the operative room by the anesthesia team. General anesthesia wasinduced, and patient was orotracheally intubated without issue. Patient was then turned 180 degreestowards the ENT team. Time out was performed by Dr. Ly. First, the patient's base of tongue, tonsils and glossotonsillar sulcus were palpated. Direct laryngoscopy was performed using a variety of laryngoscopes. All sites of the upper aerodigestive tract were visualized and closely inspected including the uvula, soft palate, tonsils, vallecula, epiglottis, base of tongue, arytenoids, false and true vocal cords, post-cricoid region and pyriform sinuses.See operative findings above. Multiple biopsies were obtained and sent for frozen and permanent analysis. Next, the suspension arm was attached to the laryngoscope and this was suspended on the Mustard stand to perform flexible bronchoscopy. The bronchoscope was inserted and placed around the ETT to evaluate the right and left mainstem bronchi as well as the subsegmental bronchi bilaterally. No concerning lesions were identified. The laryngoscope was taken out of suspension and removed. Flexible esophagoscopy was performed with the scope inserted to the level of the pylorus and retroflexed. On careful removal of the scope all sites of the gastric and esophageal mucosa were evaluated and there were not any concerning lesions noted. Complications: None; patient tolerated the procedure well. Disposition: PACU - hemodynamically stable. Condition: stable Attending Attestation: I was present and scrubbed for the entire procedure. 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] Procedures Direct Laryngoscopy 11443 - MS LARYNGOSCOPY W/WO TRACHEOSCOPY DX EXCEPT Bronchoscopy 73751 - MS [facility] INCL FLUOR GDNCE DX W/CELL WASHG SPX Esophagoscopy 54359 - MS ESOPHAGOSCOPY FLEXIBLE TRANSORAL DIAGNOSTIC Surgeons Panel 1: * Mray Ly - Primary Panel 2: * Mary Ly - Primary Resident/Fellow/Other Marine Animal Trainer: Surgeons and Role: Panel 1: * Riana Vela PA-C - Resident - Assisting Staff: Washtub Worker Helper: Jameel Camargo Person: Simon Camargo Person: Reggie Anesthesia Staff: Anesthesiologist: Gabo Munoz MD Grievance Manager: Candice Aceves MD; Delvis Santana MD Procedure Summary Anesthesia: Anesthesia type not filed in the log. ASA: III Estimated Blood Loss: 5mL Intra-op Medications: Administrations occurring from 0700 to 0835 on 05/11/24: Medication Name Total Dose sodium chloride 0.9 % irrigation solution 1,000 mL oxymetazoline (Afrin) 0.05 % nasal spray 30 mL sterile water irrigation solution 1,000 mL dexAMETHasone (Decadron) 10 mg/mL 4 mg esmolol 10 mg/mL 30 mg fentaNYL (Sublimaze) injection 50 mcg/mL 100 mcg lidocaine (Xylocaine) 2 % 70 mg phenylephrine (Miguel-Synephrine) injection 200 mcg propofol (Diprivan) injection 10 mg/mL 120 mg rocuronium 10 mg/mL 70 mg Anesthesia Record Intraprocedure I/O Totals None Specimen: ID Type Source Tests Collected by Time 1 : RIGHT BASE OF TONGUE Tissue TONGUE DORSUM BIOPSY SURGICAL PATHOLOGY EXAM Mary Ly MD 05/11/2024 0802 2 : RIGHT BASE OF TONGUE #2 Tissue TONGUE DORSUM BIOPSY SURGICAL PATHOLOGY EXAM Mary Ly MD 05/11/2024 0822 3 : RIGH BASE OF TONGUE Tissue TONGUE RESECTION SURGICAL PATHOLOGY EXAM Mary Ly MD 05/11/2024 0851 Drains and/or Catheters: * None in log * Findings: easy grade 1 view with dedo. Right base of tongue biopsy frozen returned as carcinoma, suspicious for invasion. Edentulous, tonsils surgically absent. Indications: Jeremie Bennett is an 83 y.o. 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 The patient was seen in the preoperative area. The risks, benefits, complications, treatment options, non-operative alternatives, expected recovery and outcomes were discussed with the patient. The possibilities of reaction to medication, pulmonary aspiration, injury to surrounding structures, bleeding, recurrent infection, the need for additional procedures, failure to diagnose a condition, and creating a complication requiring transfusion or operation were discussed with the patient. The patient concurred with the proposed plan, giving informed consent. The site of surgery was properly noted/marked if necessary per policy. The patient has been actively warmed in preoperative area. Preopera tive antibiotics are not indicated. Venous thrombosis prophylaxis have been ordered including bilateral sequential compression devices Procedure Details: Patient was seen and evaluated in the pre-operative area. Informed consent was obtained as described above. Patient was then taken to the operative room by the anesthesia team. General anesthesia wasinduced, and patient was orotracheally intubated without issue. Patient was then turned 180 degreestowards the ENT team. Time out was performed by Dr. Ly. First, the patient's base of tongue, tonsils and glossotonsillar sulcus were palpated. Direct laryngoscopy was performed using a variety of laryngoscopes. All sites of the upper aerodigestive tract were visualized and closely inspected including the uvula, soft palate, tonsils, vallecula, epiglottis, base of tongue, arytenoids, false and true vocal cords, post-cricoid region and pyriform sinuses.See operative findings above. Multiple biopsies were obtained and sent for frozen and permanent analysis. Next, the suspension arm was attached to the laryngoscope and this was suspended on the Mustard stand to perform flexible bronchoscopy. The bronchoscope was inserted and placed around the ETT to evaluate the right and left mainstem bronchi as well as the subsegmental bronchi bilaterally. No concerning lesions were identified. The laryngoscope was taken out of suspension and removed. Flexible esophagoscopy was performed with the scope inserted to the level of the pylorus and retroflexed. On careful removal of the scope all sites of the gastric and esophageal mucosa were evaluated and there were not any concerning lesions noted. Complications: None; patient tolerated the procedure well. Disposition: PACU - hemodynamically stable. Condition: stable Attending Attestation: I was present and scrubbed for the entire procedure. Mary Ly documented in this [facility] Work Phone: 1(143) 243-448112-26-2024 History and physical note* Jessica Carreon MD - 05/11/2024 6:16 AM EST History Of Present Illness Jeremie Bennett is a 83 y.o. 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 Past Medical History He has a past medical history of Anemia, Arrhythmia, Arthritis, Chronic headaches, Dysphagia, GERD (gastroesophageal reflux disease), Head and neck cancer (Multi), HL (hearing loss), Hypertension, Sleep apnea, Type 2 diabetes mellitus, and Vertigo. Surgical History He has a past surgical history that includes Cardiac catheterization; Tonsillectomy; Cataract extraction; Prostate surgery; and Hernia repair. Social History He reports that he quit smoking about 42 years ago. His smoking use included cigarettes. He has quit using smokeless tobacco. He reports current alcohol use of about 2.0 standard drinks of alcohol per week. He reports current drug use. Family History No family history on file. Allergies Niacin, Adhesive, and Adhesive tape-silicones Review of Systems Denies N/V, fevers, chills Physical Exam Head; normocephalic atrraumatic Neuro: A&O x3 Eyes: EOMI Cardio: well perfused Skin: no apparent lesions Resp: chest rise symmetric Face: CN VII intact Last Recorded Vitals There were no vitals taken for this visit. Relevant Results Assessment/Plan Assessment & Plan Malignant neoplasm of floor of mouth Plan for DL with biopsies, possible tonsillectomy and BOT resection. Jessica Carreon MD Cosigned by Mary Ly MD at 05/11/2024 6:34 AM EST [facility] Work Phone: 1([phone]) 510-813012-26-2024 History and physical note* Jessica Carreon MD - 05/11/2024 6:16 AM EST History Of Present Illness Jeremie Bennett is a 83 y.o. 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 Past Medical History He has a past medical history of Anemia, Arrhythmia, Arthritis, Chronic headaches, Dysphagia, GERD (gastroesophageal reflux disease), Head and neck cancer (Multi), HL (hearing loss), Hypertension, Sleep apnea, Type 2 diabetes mellitus, and Vertigo. Surgical History He has a past surgical history that includes Cardiac catheterization; Tonsillectomy; Cataract extraction; Prostate surgery; and Hernia repair. Social History He reports that he quit smoking about 42 years ago. His smoking use included cigarettes. He has quit using smokeless tobacco. He reports current alcohol use of about 2.0 standard drinks of alcohol per week. He reports current drug use. Family History No family history on file. Allergies Niacin, Adhesive, and Adhesive tape-silicones Review of Systems Denies N/V, fevers, chills Physical Exam Head; normocephalic atrraumatic Neuro: A&O x3 Eyes: EOMI Cardio: well perfused Skin: no apparent lesions Resp: chest rise symmetric Face: CN VII intact Last Recorded Vitals There were no vitals taken for this visit. Relevant Results Assessment/Plan Assessment & Plan Malignant neoplasm of floor of mouth Plan for DL with biopsies, possible tonsillectomy and BOT resection. Jessica Carreon MD Cosigned by Mary Ly MD at 05/11/2024 6:34 AM EST [facility] Work Phone: [phone]) 676-223212-24-2024 History of Present illness Narrative* Mary Ismael - 05/09/2024 10:02 AM EST Pharmacy Medication History Review Jeremie Bennett is a 83 y.o. male who is planned to be admitted for Malignant neoplasm of floor of mouth. Pharmacy called the patient prior to their scheduled procedure and reviewed the patient's ftnrj-ic-ofnyhmtup medications for accuracy. Medications ADDED: none Medications CHANGED: Dorzolamide 2% directions from #1ouTID to #1ouBID Medications REMOVED: none Please review updated prior to admission medication list and comments regarding how patient may be taking medications differently by going to Admission tab --> Admission Orders --> Admit Orders/ Review prior to admission medications. Preferred pharmacy, last doses of medications, and allergies to be confirmed with patient by nursing the day of procedure. 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 Patient states they are taking #1 tablet of metformin XR 500mg once daily. L.F. 02/24/24 #200/100d (prescription states #1BID) Patient states they are taking #1 tablet of rosuvastatin 10mg daily. L.F. 05/31/23 #90/90d. There is no recent fill history to confirm [facility] Please reach out via Secure Chat for questions documented in [facility] Work Phone: [phone]) 840-605812-10-2024 NoteUT Electrophysiology Consult Note [place] Cardiology [facility] Reason for visit: Device at [facility] HPI: Jeremie Bennett is a 83 y.o. year old with past medical history of hypertension, hyperlipidemia CAD was noted to have a pacemaker placed by Dr. Shi for ?SND which is approaching BILL[place]. He has previously been seen by and was noted to have a Medtronic dual-chamber pacemaker. Today's device check reveals that he is low blood pressures with 97% atrial pacing and 30% ventricular pacing. No evidence of atrial fibrillation seen. The device is currently programmed MVP mode. Also needs cleared for procedure on his throat, tentatively scheduled for 05/11/2024. Denies chest pain, SOB, palpitations, and syncope. PMH: Past Medical History: Diagnosis Date Abnormal ECG Bradycardia Coronary artery disease Diabetes mellitus (CMS/HCC) Heart valve disease Hyperlipidemia VT (ventricular tachycardia) ([facility]) PSH: Past Surgical History: Procedure Laterality Date ABLATION OF DYSRHYTHMIC FOCUS CARDIAC CATHETERIZATION INSERT / REPLACE / REMOVE PACEMAKER SH: Social Determinants of Health Tobacco Use: Medium Risk (05/11/2024) [facility] from [facility] Patient History Smoking Tobacco Use: Former Smokeless Tobacco Use: Former Passive Exposure: Not on file Alcohol Use: Not on file Financial Resource Strain: Not on file Food Insecurity: Not on file Transportation Needs: Not on file Physical Activity: Not on file Stress: Not on file Social Connections: Not on file Intimate Partner Violence: Unknown (07/08/2023) [place] Safety & Environment Fear of Current or Ex-Partner: Not on file Emotionally Abused: Not on file Physically Abused: Not on file Sexually Abused: Not on file Physically or Sexually Abused: Not on file Depression: Not at risk (04/07/2024) Received from [facility] PHQ-2 Patient Health Questionnaire-2 Score: 0 Housing Stability: Not on file Utilities: Not on file Health Literacy: Not on file Allergies: Allergies Allergen Reactions Adhesive Tape-Silicones Niacin Weight: 77.6kg Visit Vitals BP 130/68 (BP Location: Right arm, Patient Position: Sitting) Pulse 66 Ht 1.651 m (5' 5 ) Wt 77.6 kg (171 lb) SpO2 94% BMI 28.46 kg/m??? Smoking Status Former BSA 1.89 m??? Meds: Current Outpatient Medications on File Prior to Visit Medication Sig Dispense Refill amLODIPine (Norvasc) 5 mg tablet TAKE 1 TABLET BY MOUTH IN THE MORNING 100 tablet 3 aspirin 81 mg EC tablet Take 1 tablet every day by oral route. clopidogrel (Plavix) 75 mg tablet Take 1 tablet (75 mg) by mouth in the morning. 100 tablet 3 famotidine (Pepcid) 20 mg tablet Take 20 mg by mouth in the morning. furosemide (Lasix) 20 mg tablet Take 1 tablet every day by oral route. irbesartan (Avapro) 300 mg tablet TAKE 1 TABLET BY MOUTH IN THE MORNING 100 tablet 3 isosorbide mononitrate ER (Imdur) 30 mg 24 hr tablet Take 1 tablet (30 mg) by mouth in the morning. 100 tablet 3 metFORMIN XR (Glucophage-XR) 500 mg 24 hr tablet Take 500 mg by mouth in the morning and at bedtime. omeprazole (PriLOSEC) [address] capsule Take 40 mg by mouth before breakfast. Do not crush or chew. rosuvastatin (Crestor) 10 mg tablet Take 1 tablet by mouth in the morning. sotalol (Betapace) 80 mg tablet TAKE ONE-HALF TABLET BY MOUTH IN THE MORNING AND AT BEDTIME 100 tablet 3 tiZANidine (Zanaflex) 4 mg tablet TAKE 1/2 TO 1 TABLET BY MOUTH EVERY DAY AT NIGHT zonisamide (Zonegran) 25 mg capsule No current facility-administered medications on file prior to visit. ROS: Review of Systems Constitutional: Positive for malaise/fatigue. Cardiovascular: Positive for leg swelling (minimal). Musculoskeletal: Positive for arthritis and back pain. Gastrointestinal: Positive for nausea. Neurological: Positive for light-headedness and loss of balance. All other systems reviewed and are negative. Physical Exam: Constitutional General Appearance: well-nourished, well-developed, appears stated age Level of Distress: comfortable Eyes HITESH Neck Neck: supple, trachea midline Carotid Arteries: bilateral normal upstroke, no bruits Jugular Veins: normal jugular venous pressure Thyroid: not enlarged Lungs Respiratory Effort: unlabored Chest Exam: normal curvature, no thoracic deformity Auscultation: clear, no wheezing, no rales, no rhonchi Cardiovascular Chest wall: Rate And Rhythm: regular Heart Sounds: normal S1, normal s2, no gallop Systolic Murmur: not heard Diastolic Murmur: not heard Extremities: no cyanosis, no edema, no peripheral signs of emboli Peripheral Pulses Radial Pulse: normal Abdomen Inspection and Palpation: soft, non distended, no bruit, non tender Neurologic Gait: normal gait Labs: @LABRESULTS@ No results found for: CHOLESTEROL TOTAL , HDL , LDL CALC , LDL DIRECT , TRIGLYCERIDES , TSH , T3 TO (more content not included)...[facility]12-02-2024 NotePatient Education Nutrition BMI for Adults Body mass [...] This can help you reach a healthy weight.BMI screening can be done again to see if these changes are working. How is BMI calculated? Your height and weight are measured. The BMI is found from those numbers. This can be done with U.S. or metric measurements. Note that charts and online BMI calculators are available to help you findyour BMI quickly and easily without doing these [...] measurement is 1.75 m x 1.75 m, whichequals 3.1 meters squared. 3. Divide the number of kilograms (your weight) by the meters squared number. In this example: 70 ?3.1 = 22.6. This is your BMI. What [...] for Disease Control and Prevention: cdc.gov ??? [place] Heart Association: heart.org ??? National Heart, Lung, and Blood [place]: nhlbi.nih.gov This information is not intended to replace advice given to you by your health care provider. Make sure you discuss any questions you have with your health care provider. Document Revised: 01/21/2023 Document Reviewed: 01/14/2023 [employer] Patient Education ? 2023 [employer].[facility] 04-07-2024 History of Present illness Narrative* Mary Ly MD - 04/07/2024 10:45 AM EST HEAD AND NECK SURGERY CONSULT [facility] Referring Provider: Dr. Ham HPI [...] pain, or weight loss (weight is 170 lbtoday). Right ear pain, reports history of ear [...] lymph node Procedure Note: Diagnostic Flexible Laryngoscopy (85325) Indication: patient symptoms requiring evaluation of pharyngeal/laryngeal/hypopharyngeal structures Surgeon: Mary Ly MD Informed Consent: The procedure, risks, and [...] entirety, or was present with the resident/fellow forthe entirety of the procedure. Procedure Biopsy of the left mandible alveolar ridge Indication: Lesion of the left mandible present requiring tissue analysis Surgeon: Mary Ly MD Informed consent: Risks and benefits were [...] incidental right parotid nodule, enlarged right level 2band left level 2a lymph nodes, stenosis of [...] be unusual for the small area of necrosison the mandible to be the source of [...] for this, has a pacemaker and seeing grid caster soon. Will follow up biopsy and call him with the results Mary Ly MD documented in this [facility] Work Phone: [phone]) 432-757311-13-2024 History of Present illness Narrative* Luc Ham MD - 03/29/2024 10:20 AM EST Subjective Patient ID: Jeremie Bennett is a 83 y.o. male who presents for Mouth Lesions (Follow up PET [facility] 03/27/24) Pet scan reviewed and there [...] Diagnosis Date Noted Arteriosclerosis of coronary artery (CMS/HCC) 01/20/2019 Arthritis of ankle, right 01/27/2024 Arthritis [...] complication, without long-term current use of insulin (CMS/HCC) 04/14/2023 Diabetic autonomic neuropathy associated with type 2 diabetes mellitus (CMS/HCC) 04/14/2023 Diabetic peripheral neuropathy associated with type 2 diabetes mellitus (CMS/HCC) 01/27/2024 Diverticulosis 01/27/2024 Dysphagia 04/14/2023 Essential hypertension (CMS/HCC) 04/03/2022 Excessive daytime sleepiness 01/27/2024 FH: stomach cancer 04/14/2023 Chronic GERD 01/27/2024 GERD with apnea 01/27/2024 Glaucoma (CMS/HCC) 04/03/2022 Hemorrhoids 01/27/2024 History of colon polyps 01/27/2024 History of malignant neoplasm of prostate 04/03/2022 [place] (hard of hearing) 04/03/2022 Hypercholesterolemia ([facility]) 04/03/2022 Hyperlipidemia ([facility]/HCC) 04/03/2022 Insomnia 04/03/2022 Internal derangement of right knee 01/27/2024 Irregular bowel habits 04/14/2023 Lump on neck 04/14/2023 Migraines (CMS/HCC) 04/03/2022 Aortic valve regurgitation 04/26/2019 Mitral valve regurgitation 04/26/2019 Neuropathy 04/03/2022 NPH (normal pressure hydrocephalus) ([facility]/HCC) 04/03/2022 Central sleep apnea 01/27/2024 Obstructive sleep [...] reflux disease) HTN (hypertension) (CMS/HCC) Migraine headache ([facility]) Pain management Paronychia of great toe Personal history of other medical treatment 04/2018 Sinus tarsi syndrome of right foot Sleep apnea Toe pain, right Type 2 diabetes mellitus with diabetic neuropathy ([facility]/HCC) Past Surgical History: Procedure Laterality Date CARDIAC CATHETERIZATION 08/30/2019 CATARACT EXTRACTION Bilateral CERVICAL FUSION 2016 C3-C4-C5 CHOLECYSTECTOMY HERNIA REPAIR 2002 INSERT / REPLACE / REMOVE PACEMAKER 2015 pacemaker insertion OTHER SURGICAL HISTORY 2005 ablation OTHER SURGICAL HISTORY 2007 sphincterotomy MS CHOLECYSTECTOMY 02/2020 Laparoscopic Cholecystectomy - [place] MS IMPLANT ARTIFICIAL SPHINCTER 2017 PROSTATE 2000 TONSILLECTOMY 1970 Allergies Allergen Reactions Niacin Itching and Unknown Wound Dressing Adhesive Unknown Current Outpatient Medications on File Prior to Visit Medication Sig Dispense Refill amLODIPine (Norvasc) 5 MG tablet Take 5 mg by mouth in the morning. aspirin 81 MG EC tablet Take 81 mg by mouth in the morning. ejuizuwvbg-wqdizqkmxmusr-zaejslns 50-325-40 MG tablet Take 1 tablet by mouth every 4 (four) hours if needed for headaches. clopidogrel (Plavix) 75 MG tablet Take 75 mg by mouth in the morning. diphenhydrAMINE-acetaminophen (Tylenol PM) 25-500 MG per tablet Take 1 tablet by mouth as needed atbedtime for sleep. dorzolamide (Trusopt) 2 % ophthalmic solution 1 drop in the morning and 1 drop in the evening and 1drop before bedtime. famotidine (Pepcid) 20 MG tablet [...] 1 TABLET BY MOUTH TWICE DAILY (Patient takingdifferently: Take 500 mg by mouth in the [...] left mandible with intense PET uptake and trish zone 2 nodes c/w mets. 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 Tx of primary tumor will likely require a marginal mandibulectomy. I will have pt see Dr Mary Ly at for tx. I will see back one tx completed for surveillance exams. documented in this encounterCameron Regional Medical [id number] History of Present illness Narrative* Kandi Rodriguez, RT(R) - 03/27/2024 10:00 AM EST RADIOLOGY SERVICE PROGRESS NOTE SERVICE DATE: 03/27/2024 [...] PATIENT PRESENTS WITH AN IMPLANTABLE OR ATTACHED MANAGER GARAGE: No CREATININE: No results found for: CREAT , EGFROTH , EGFRAA P.O.C.T. RESULTS: POC done: Yes, See Lab Tab March 27, [address] PERFORMED: No IV SITE: Ambulatory: A peripheral IV was started in the Left antecubital site with a Angio cath: 24gauge. POST EXAM PIV STATUS: Discontinued PROCEDURE TYPE: [...] information regarding radiation safety can be found usingthis link: [email or web address]%[email or web address] SIGNATURE: FLORY Rodriguez) PATIENT NAME: Jeremie Bennett DATE: March 27, 2024 TIME: 10:14 AM PAGER/CONTACT #: documented in this [facility]Mer[facility]24 NoteHNO ID: [id number] Author: KANDI RODRIGUEZ RT (R) Service: ? Author Type: Technologist Type: Progress [...] PATIENT PRESENTS WITH AN IMPLANTABLE OR ATTACHED MANAGER GARAGE: No CREATININE: No results found for: CREAT [...] 1003 PATIENT DISCHARGED TO: Ambulatory patient, left [place] department area. Is this a therapy: No A Diagnostic radioactive procedure has taken place, with no further precautions necessary other than routine body substance precautions. More information regarding radiation safety can be found using this link: [email or web address]%20Medicine%[email or web address] SIGNATURE: RT Jennifer(R) PATIENT NAME: Jeremie Bennett DATE: March 27, 2024 TIME: 10:14 AM PAGER/CONTACT #:[facility]10-23-2024 History of Present illness Narrative* Luc Ham MD - 03/08/2024 9:40 AM EDT Images from the original note were not included. Subjective Patient ID: Jeremie Bennett is a 83 y.o. 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 [...] Diagnosis Date Noted Arteriosclerosis of coronary artery (CMS/HCC) 01/20/2019 Arthritis of ankle, right 01/27/2024 Arthritis [...] complication, without long-term current use of insulin (CMS/HCC) 04/14/2023 Diabetic autonomic neuropathy associated with type 2 diabetes mellitus (CMS/HCC) 04/14/2023 Diabetic peripheral neuropathy associated with type 2 diabetes mellitus (CMS/HCC) 01/27/2024 Diverticulosis 01/27/2024 Dysphagia 04/14/2023 Essential hypertension (CMS/HCC) 04/03/2022 Excessive daytime sleepiness 01/27/2024 FH: stomach cancer 04/14/2023 Chronic GERD 01/27/2024 GERD with apnea 01/27/2024 Glaucoma (CMS/HCC) 04/03/2022 Hemorrhoids 01/27/2024 History of colon polyps 01/27/2024 History of malignant neoplasm of prostate 04/03/2022 [place] (hard of hearing) 04/03/2022 Hypercholesterolemia (CMS/HCC) 04/03/2022 [...] 2005 ablation OTHER SURGICAL HISTORY 2007 sphincterotomy MS CHOLECYSTECTOMY 02/2020 Laparoscopic Cholecystectomy - [place] MS IMPLANT ARTIFICIAL SPHINCTER 2017 PROSTATE 2000 TONSILLECTOMY 1970 Allergies Allergen Reactions Niacin Itching and Unknown Wound Dressing Adhesive Unknown Current Outpatient Medications on File Prior to Visit Medication Sig Dispense Refill amLODIPine (Norvasc) 5 MG tablet Take 5 mg by mouth in the morning. aspirin 81 MG EC tablet Take 81 mg by mouth in the morning. vbxburdifj-fvzfwufjiycsm-xaqowoqa 50-325-40 MG tablet Take 1 tablet by mouth every 4 (four) hours if needed for headaches. clopidogrel (Plavix) 75 MG tablet Take 75 mg by mouth in the morning. diphenhydrAMINE-acetaminophen (Tylenol PM) 25-500 MG per tablet Take 1 tablet by mouth as needed atbedtime for sleep. dorzolamide (Trusopt) 2 % ophthalmic solution 1 drop in the morning and 1 drop in the evening and 1drop before bedtime. famotidine (Pepcid) 20 MG tablet [...] 1 TABLET BY MOUTH TWICE DAILY (Patient takingdifferently: Take 500 mg by mouth in the [...] ulceration or mass. Normal bilateral true vocal foldmotion is present. Bilateral piriform sinuses and base [...] suspicious for the primary documented in this encounterCameron Regional Medical [id number] Telephone encounter Note* Telephone Encounter - Antoinette Ham - 03/06/2024 11:18 AM EDT Pt is scheduled for 03/08/[address] Ham[address] [facility] [id number] Miscellaneous Notes* Telephone Encounter - Antoinette Ham - 03/06/2024 11:18 AM EDT Pt is scheduled for 03/08/[address] Ham. * Telephone Encounter - Luc Ham MD - 03/06/2024 10:18 AM EDT Move up pt's appt documented in this encounterCameron Regional Medical [id number] Telephone encounter Note* Telephone Encounter - Luc Ham MD - 03/06/2024 10:18 AM EDT Move up pt's appt [facility] [employer] Work Phone: 1(185) 865-830710-02-2024 History of Present illness Narrative* Luc Ham MD - 02/16/2024 2:30 PM EDT Subjective Patient ID: Jeremie Bennett is a [...] Diagnosis Date Noted Arteriosclerosis of coronary artery (CMS/HCC) 01/20/2019 Arthritis of ankle, right 01/27/2024 Arthritis [...] complication, without long-term current use of insulin (CMS/HCC) 04/14/2023 Diabetic autonomic neuropathy associated with type 2 diabetes mellitus (CMS/HCC) 04/14/2023 Diabetic peripheral neuropathy associated with type 2 diabetes mellitus (CMS/HCC) 01/27/2024 Diverticulosis 01/27/2024 Dysphagia 04/14/2023 Essential hypertension (CMS/HCC) 04/03/2022 Excessive daytime sleepiness 01/27/2024 FH: stomach cancer 04/14/2023 Chronic GERD 01/27/2024 GERD with apnea 01/27/2024 Glaucoma (CMS/HCC) 04/03/2022 Hemorrhoids 01/27/2024 History of colon polyps 01/27/2024 History of malignant neoplasm of prostate 04/03/2022 [place] (hard of hearing) 04/03/2022 Hypercholesterolemia (CMS/HCC) 04/03/2022 [...] Presence of cardiac pacemaker 03/14/2021 Prostate cancer ([facility]/HCC) 04/03/2022 Prostatitis 04/14/2023 Skin cancer 04/03/2022 Swollen lymph nodes 04/14/2023 Thoracic aortic ectasia ([facility]/HCC) 01/27/2024 Vitamin D deficiency 04/03/2022 Resolved Ambulatory Problems Diagnosis Date Noted Bloating 01/27/2024 Cellulitis of toe of left foot 01/27/2024 Cellulitis of toe of right foot 01/27/2024 Chest wall pain 04/03/2022 Gallstones 04/03/2022 COVID-19 11/10/2022 Entrapment of left ulnar nerve 01/27/2024 Entrapment of right ulnar nerve 01/27/2024 Fecal soiling 04/03/2022 Fecal urgency 04/14/2023 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 Lower abdominal pain 04/03/2022 Pain of [...] Diverticulitis GERD (gastroesophageal reflux disease) HTN (hypertension) ([facility]) Migraine headache ([facility]) Pain management Paronychia of great toe Personal history of other medical treatment 04/2018 Sinus tarsi syndrome of right foot Sleep apnea Toe pain, right Type 2 diabetes mellitus with diabetic neuropathy ([facility]) Past Surgical History: Procedure Laterality Date CARDIAC CATHETERIZATION 08/30/2019 CATARACT EXTRACTION Bilateral CERVICAL FUSION 2016 C3-C4-C5 CHOLECYSTECTOMY HERNIA REPAIR 2002 INSERT / REPLACE / REMOVE PACEMAKER 2015 pacemaker insertion OTHER SURGICAL HISTORY 2005 ablation OTHER SURGICAL HISTORY 2007 sphincterotomy MS CHOLECYSTECTOMY 02/2020 Laparoscopic Cholecystectomy - [place] MS IMPLANT ARTIFICIAL SPHINCTER 2017 PROSTATE 2000 TONSILLECTOMY 1970 Allergies Allergen Reactions Niacin Itching and Unknown Wound Dressing Adhesive Unknown Current Outpatient Medications on File Prior to Visit Medication Sig Dispense Refill amLODIPine (Norvasc) 5 MG tablet Take 5 mg by mouth in the morning. aspirin 81 MG EC tablet Take 81 mg by mouth in the morning. yhcbdhnxzo-bqhwgurikiazd-hnswcjou 50-325-40 MG tablet Take 1 tablet by mouth every 4 (four) hours if needed for headaches. clopidogrel (Plavix) 75 MG tablet Take 75 mg by mouth in the morning. diphenhydrAMINE-acetaminophen (Tylenol PM) 25-500 MG per tablet Take 1 tablet by mouth as needed atbedtime for sleep. dorzolamide (Trusopt) 2 % ophthalmic solution 1 drop in the morning and 1 drop in the evening and 1drop before bedtime. famotidine (Pepcid) 20 MG tablet [...] 1 TABLET BY MOUTH TWICE DAILY (Patient takingdifferently: Take 500 mg by mouth in the [...] a core needle bx documented in this encounterCameron Regional Medical [id number] History of Present illness Narrative* NILAY Morales - 02/16/2024 9:20 AM EDT [facility] Jeremie Bennett 1940 Subjective: Vertigo -He denies any recent episodes -denies recent falls -denies any changes 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 Robins in [place] -he is following up with them next [...] Oral, Daily aspirin 81 mg, Oral, Daily jtbpuwnzux-pjsdrycyvwjzr-cawevunt 50-325-40 MG tablet 1 tablet, Oral, Every [...] 2005 ablation OTHER SURGICAL HISTORY 2007 sphincterotomy MS CHOLECYSTECTOMY 02/2020 Laparoscopic Cholecystectomy - Wiecek MS IMPLANT ARTIFICIAL SPHINCTER 2017 PROSTATE 2000 TONSILLECTOMY [...] time. Oriented to person, place, time and situation.Recent and remote memory are intact. Speech is [...] 2+ 2+ Patellar 2+ 2+ Coordination Right: Yfwthc-dm-diee normal.Left: Cjopwx-di-ryqi normal. Gait Casual gait is normal including [...] on gabapentin. His symptoms have increased to hisbilateral feet manifested as increase in intensity to [...] and does note chronic neck pain and inte rmittent headaches. He has not responded to PT during past visits. 7. Neck pain - M54.2 8. Degenerative disc disease, cervical - M50.30,History of cervical spine surgery. MRI of the cervical spine 08/12/22 revealed multilevel disc, facet, and uncovertebral joint degenerative changes mostpronounced at C5-C6 with a broad based disc bulge causing moderate to severe right neural foraminalnarrowing. Migraine- Patient states that he has history of migraines which are occurring 3- 4 per month. He states that Fioricet has [...] up in 6 months documented in this encounterCameron Regional Medical [id number] Telephone encounter Note* Telephone Encounter - Carlitos Beckman - 02/07/2024 9:29 AM EDT Images from the original note were not included. IPMN surveillance. Review OSH images and advise please Chacho Palus MRI Ch[facility] Pancreatography 11/09/2023 [facility]09-23-2024 Miscellaneous Notes* Telephone Encounter - Carlitos Beckman - 02/07/2024 9:29 AM EDT Images from the original note were not included. IPMN surveillance. Review OSH images and advise please Chacho [place] MRI Ch[facility] Pancreatography 11/09/2023 * Telephone Encounter - Carlitos Beckman - 02/04/2024 9:03 AM EDT Surveillance imaging completed at OSH for IPMN surveillance. * Telephone Encounter - Carlitos Beckman - 02/02/2024 8:57 AM EDT Call to patient to discuss plan of care. Surveillance imaging needed to evaluate pancreas cyst. Dx: IPMN Per Dr. Vaishali Pringle- recommended repeat MRI in 1 year Last imaging 02/17/2024 Orders placed: MRI Pancreas w/wo IVCON Patient's local GI ordered MRI and it was completed in 12/2023 at [facility]. Our office will request results for Dr. Pringle's review. Follow up will be determined upon Dr. Pringle's review of results. documented in this encounterMercy Health Tiffin [facility]09-20-2024 Telephone encounter Note * Telephone Encounter - Carlitos Beckman - 02/04/2024 9:03 AM EDT Surveillance imaging completed at OSH for IPMN surveillance. [facility]09-18-2024 Telephone encounter Note* Telephone Encounter - Carlitos Beckman - 02/02/2024 8:57 AM EDT Call to patient to discuss plan of care. Surveillance imaging needed to evaluate pancreas cyst. Dx: IPMN Per Dr. Vaishali Pringle- recommended repeat MRI in 1 year Last imaging 02/17/2024 Orders placed: MRI Pancreas w/wo IVCON Patient's local GI ordered MRI and it was completed in 12/2023 at [facility]. Our office will request results for Dr. Pringle's review. Follow up will be determined upon Dr. Pringle's review of results. 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/27/2024 BMI 29.0-29.9,adult 01/27/2024 Cardiac dysrhythmia 04/03/2022 Ventricular tachycardia ([facility]) 01/27/2024 Carpal tunnel syndrome, left 01/27/2024 Carpal tunnel syndrome, right 01/27/2024 Cervical lymphadenopathy 01/27/2024 Spondylosis of cervical spine 01/27/2024 Cervical vertebral fusion 04/03/2022 Spondylosis of lumbar spine 01/27/2024 Chronic venous insufficiency 01/27/2024 Colon polyp 01/27/2024 Type 2 diabetes mellitus ([facility]) 01/27/2024 Type 2 diabetes mellitus without complication, without long-term current use of insulin ([facility]) 04/14/2023 Diabetic autonomic neuropathy associated with type 2 diabetes mellitus ([facility]) 04/14/2023 Diabetic peripheral neuropathy associated with type 2 diabetes mellitus ([facility]) 01/27/2024 Diverticulosis 01/27/2024 Dysphagia 04/14/2023 Essential hypertension ([facility]/HCC) 04/03/2022 Excessive daytime sleepiness 01/27/2024 FH: stomach cancer 04/14/2023 Chronic GERD 01/27/2024 GERD with apnea 01/27/2024 Glaucoma ([facility]/HCC) 04/03/2022 Hemorrhoids 01/27/2024 History of colon polyps 01/27/2024 History of malignant neoplasm of prostate 04/03/2022 [place] (hard of hearing) 04/03/2022 Hypercholesterolemia ([facility]) 04/03/2022 Hyperlipidemia (CMS/HCC) 04/03/2022 Insomnia 04/03/2022 Internal derangement of right knee 01/27/2024 Irregular bowel habits 04/14/2023 Lump on neck 04/14/2023 Migraines ([facility]) 04/03/2022 Aortic valve regurgitation 04/26/2019 Mitral valve regurgitation 04/26/2019 Neuropathy 04/03/2022 NPH (normal pressure hydrocephalus) ([facility]) 04/03/2022 Central sleep apnea 01/27/2024 Obstructive sleep apnea 04/03/2022 Osteoarthritis 04/03/2022 Osteoarthritis of carpometacarpal (CMC) joint of left thumb 01/27/2024 Osteochondritis dissecans of right ankle 01/27/2024 Other specified disorders of synovium, right ankle and foot 01/27/2024 Pain in right ankle and joints of right foot 01/27/2024 Pancreatic cyst ([facility]) 04/14/2023 Paresthesia of both hands 01/27/2024 Edema of lower extremity 04/26/2019 Polyneuropathy associated with underlying disease ([facility]/HCC) 01/27/2024 Presence of cardiac pacemaker 03/14/2021 Prostate cancer ([facility]) 04/03/2022 Prostatitis 04/14/2023 Skin cancer 04/03/2022 Swollen lymph nodes 04/14/2023 Thoracic aortic ectasia ([facility]) 01/27/2024 Vitamin D deficiency 04/03/2022 Resolved Ambulatory Problems Diagnosis Date Noted Bloating 01/27/2024 Cellulitis of toe of left foot 01/27/2024 Cellulitis of toe of right foot 01/27/2024 Chest wall pain 04/03/2022 Gallstones 04/03/2022 COVID-19 11/10/2022 Entrapment of left ulnar nerve 01/27/2024 Entrapment of right ulnar nerve 01/27/2024 Fecal soiling 04/03/2022 Fecal urgency 04/14/2023 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) 01/27/2024 Lower abdominal pain 04/03/2022 Pain of upper abdomen 04/03/2022 Obesity with body mass index 30 or greater 04/03/2022 Onychomycosis 01/27/2024 Otitis media 04/14/2023 Pain in limb 01/27/2024 Peptic ulcer 04/03/2022 Right flank pain 04/03/2022 Unsteadiness on feet 01/27/2024 Mixed incontinence 01/27/2024 Past Medical History: Diagnosis Date At risk for falls BMI 32.0-32.9,adult Cataracts Cholelithiasis 2019 Diverticulitis GERD (gastroesophageal reflux disease) HTN (hypertension) ([facility]) Migraine headache ([facility]) Pain management Paronychia of great toe Personal history of other medical treatment 04/2018 Sinus tarsi syndrome of right foot Sleep apnea Toe pain, right Type 2 diabetes mellitus with diabetic neuropathy ([facility]) Past Surgical History: Procedure Laterality Date CARDIAC CATHETERIZATION 08/30/2019 CATARACT EXTRACTION Bilateral CERVICAL FUSION 2016 C3-C4-C5 HERNIA REPAIR 2002 INSERT / REPLACE / REMOVE PACEMAKER 2015 pacemaker insertion OTHER SURGICAL HISTORY 2005 ablation OTHER SURGICAL HISTORY 2007 sphincterotomy MS CHOLECYSTECTOMY 02/2020 Laparoscopic Cholecystectomy - Wiecek MS IMPLANT ARTIFICIAL SPHINCTER 2017 PROSTATE 2000 TONSILLECTOMY 1970 Allergies Allergen Reactions Niacin Itching and Unknown Wound Dressing Adhesive Unknown Current Outpatient Medications on File Prior to Visit Medication Sig Dispense Refill amLODIPine (Norvasc) 5 MG tablet Take 5 mg by mouth in the morning. aspirin 81 MG EC tablet Take 81 mg by mouth in the morning. uyixfltcfb-puzpvbgmqijef-sqqobown 50-325-40 MG tablet Take 1 tablet by mouth every 4 (four) hours if needed for headaches. clopidogrel (Plavix) 75 MG tablet Take 75 mg by mouth in the morning. diphenhydrAMINE-acetaminophen (Tylenol PM) 25-500 MG per tablet Take 1 tablet by mouth as needed atbedtime for sleep. dorzolamide (Trusopt) 2 % ophthalmic solution 1 drop in the morning and 1 drop in the evening and 1drop before bedtime. famotidine (Pepcid) 20 MG tablet [...] 1 TABLET BY MOUTH TWICE DAILY (Patient takingdifferently: Take 500 mg by mouth in the [...] in the morning and 4 mg in theevening and 4 mg before bedtime. No current facility-administered medications on file prior to visit. Objective Last Recorded Vitals Vitals: 02/01/24 1307 BP: 101/71 ENT Physical Exam Constitutional Appearance: patient appears well-developed and well-nourished, Head and Face Appearance: head appears normal and face appears atraumatic; Ear Ear comments: Trish ears normal Nose External Nose: nares patent [...] actual location and nature documented in this encounterCameron Regional Medical [id number] NotePatient Education Gastroenterology Abdominal Bloating When you have [...] ability to digest gluten, a protein found insome grains. ? Gastroparesis. This is a condition [...] candy. ? Chewing gum. Medicines ? Take siym-qys-ylyvjsv and prescription medicines only as told by [...] provider. Document Revised: 12/03/2020 Document Reviewed: 12/03/2020 [employer] Patient Education ? 2022 IGIGI.[facility] 09-17-2023 Hospital Discharge instructions Patient Education 09/17/2023 09:05:07 Food Choices [...] grapefruit, pineapple, and nury. Vegetables Deep-fried vegetables. Cook Islander fries. Any vegetables prepared with added fat. [...] provider. Document Revised: 11/11/2020 Document Reviewed: 11/11/2020 [employer] Patient Education 2022 IGIGI. Follow Up Care 06/25/2023 12:06:59 With:Sammi CASON, NICOL Mccrary, [facility] Address: [facility] [address], [address] [place] [address]- [phone] When:3 months [facility] 01-15-2024 Evaluation note* Encounter Date Diagnosis Assessment Notes Treatment Notes Treatment Clinical Notes May, Obstructive sleep apnea (ICD-10 - [...] months. A prescription was sent to the [employer] for new supplies throughout the year. He [...] to monitor. May, Other Call if any que stions or problems. Patient is advised to work on healthy diet choices and appropriate servings, weight control, regular exercise as directed, and reduce fat intake. Use machine regularly, and keep up with mask changes as needed. Call if problems with mask toleration, increased sleepiness, or poor response to treatment. . [employer] Other 01-09-2024 Hospital Discharge instructions Patient Education [...] grapefruit, pineapple, and nury. Vegetables Deep-fried vegetables. Cook Islander fries. Any vegetables prepared with added fat. [...] provider. Document Revised: 11/11/2020 Document Reviewed: 11/11/2020 [employer] Patient Education 2022 IGIGI. Follow Up Care 02/25/2023 14:06:51 With:Anjali Ruby CNP Address: When:1 month [facility] 11-20-2023 Miscellaneous Notes* Telephone Encounter - Lolly Dumont - 04/05/2023 9:44 AM EST Received records from [facility]. Reports for imaging listed below scanned. Images pushed through 09/27/2019 US Right Upper Quad 03/31/2020 CT ABD/PEL US Right Upper Quad [facility] MRI Abdomen 02/22/2023 US Soft Tissue Head & Neck Received many misc. labs & ER reports Operative Note & pathology from Laparoscopic Cholecystectomy Patient seen 04/01, please review, thank you! documented in this encounterMer[facility]11-[facility] Nurse Note* Debby Holland MA - [...] Drains: No documented in this encounterMercy Health [facility]iff[facility]11-16-2023 History of Present illness Narrative* Vaishali [...] - Moderate documented in this encounterMercy Health Tiff[facility]11-16-2023 NoteHNO ID: [id number] Author: Vaishali Pringle MD Service: ? Author [...] Pringle MD Medical De (more content not included)...[facility]10-25-2023 Hospital Discharge instructions Patient Education 03/10/2023 09:19:04 [...] Follow these instructions at home: Medicines Take qnrs-yjn-sehgaqe and prescription medicines only as told by [...] Watch your condition for any changes. Take zkje-yrt-mxuwcph and prescription medicines only as told by [...] provider. Document Revised: 06/21/2020 Document Reviewed: 09/11/2019 [employer] Patient Education 2022 IGIGI. Follow Up Care 03/09/2023 09:58:32 With:Anjali Ruby CNP Address: When:1 to 2 weeks Comments:Following EGD. [facility] 10-12-2023 Hospital Discharge instructions [...] Follow these instructions at home: Medicines Take scmt-bmg-fdxpcdx and prescription medicines only as told by your health care provider. If you were prescribed an antibiotic medicine, take it as told by your health care provider. Do notstop taking the antibiotic even if you start to feel better. Eating and drinking Make any diet changes as told by your health care provider. Work with a diet and cyber security specialist (dietitian) to create an eating plan [...] provider. Document Revised: 12/21/2020 Document Reviewed: 12/21/2020 [employer] Patient Education 2022 IGIGI. Follow Up Care 02/22/2023 16:17:47 With:Anjali Ruby CNP Address: When:3 months [facility] 09-15-2023 Evaluation note* Encounter [...] and I encouraged pt to wear the Talai Full mask that he was given during that study and we will re-evaluate his ISIDRO in 3 months. A prescription was sent to the [employer] for new supplies throughout the year. He [...] sleepiness, or poor response to treatment. . [employer] Other 08-29-2023 Hospital Discharge instructions Patient Education [...] including vitamins, herbs, eye drops, creams, and gppd-lvp-ufpgwdl medicines. Any problems you or family members [...] provider tells you to take them. Taking jgob-ejj-ownzaxc medicines, vitamins, herbs, and supplements. General instructions [...] provider. Document Revised: 04/27/2022 Document Reviewed: 12/24/2021 [employer] Patient Education 2022 IGIGI. Follow Up Care 12/28/2022 08:53:11 With:Anjali Ruby CNP Address: When:1 to 2 weeks Comments:Following EGD/Colonoscopy. [facility] 05-30-2023 Evaluation note* Encounter [...] sleepiness, or poor response to treatment. . [employer] Other 05-09-2023 Hospital Discharge instructions Patient Education [...] managed at home with rest, fluids, and tbeg-hqd-giphpbc medicines. Serious symptoms may be treated in [...] water are not available, use alcohol-based hand electrical prospecting supervisor. Make sure that all people in your [...] managed at home with rest, fluids, and oqhu-hgr-lfojvzu medicines. This information is not intended to replace advice given to you by your health care provider. Make sure you discuss any questions you have with your health care provider. Document Revised: 04/23/2022 Document Reviewed: 04/23/2022 [employer] Patient Education 2022 IGIGI. Follow Up Care 09/22/2022 16:24:11 With:Demetrius Cooper Address: [facility] [place] [address] Business (2) When:09/25/2022 18:12:09 [facility]05-09-2023 Evaluation note* Encounter Date Diagnosis Assessment [...] no improvement in 2 to 3 days. [employer] Other 04-11-2023 NoteCONSULTATION CONSULTATION DATE: 08/25/2022 TO: Demetrius Cooper M.D. CHIEF COMPLAINT: Includes severe left [...] our patients to inform us about any pvbk-kia-wymkxdk medications or herbal remedies/nutritional supplements/alternative remedies. 2. [...] treatment options with their primary care provider.[id number] Evaluation note * Encounter Date Diagnosis Assessment [...] symptoms if he does not take his arop-ond-ajjmuvd hypnotic, sleep hygiene issues may also be [...] neuropathy pain Jul, Coronary artery disease involving ak chin heart without angina pectoris, unspecified vessel or [...] he does have a defibrillator in place [employer] Other 03-09-2023 NoteCONSULTATION CONSULTATION DATE: 07/23/2022 HISTORY [...] gain authorization to hold the Plavix pre-procedure.[facility] [id number] NotePROCEDURE: XR ANKLE RT MIN 3 VIEWS COMPARISON: 08/22/2020 HISTORY: Pain of right ankle joint FINDINGS: BONES:No acute fracture or dislocation. Moderate enthesopathic spurring of the calcaneus. Degenerative changes with bone fragments along the inferior medial malleolus, stable. SOFT TISSUES:Negative. No visible soft tissue swelling. EFFUSION:None visible. OTHER: Negative. IMPRESSION: Stable degenerative changes Electronically authenticated by: ERWIN FALCON Date: 2022-07-22 10:37[facility] [id number] NotePROCEDURE: XR FOOT RT MIN 3 VIEWS [...] Stable degenerative changes. Electronically authenticated by: CLARISSA GARICA Date: 2022-06-16 15:25[facility] HospitalTxnoczsz37-90-0749 Hospital Discharge instructions Patient Education 05/26/2022 13:46:25 [...] [facility] [address], [place] [address]- Business (1) When: Unknown Comments:Office will call to schedule follow up [facility]08-11-2022 NoteCONSULTATION PROCEDURE DATE: 12/25/2021 PRE AND [...] will be followed up in the clinic.[facility] 12-25-2021 NoteCONSULTATION CONSULTATION DATE: 12/25/2021 This [...] recently seen at an urgent care in [place] for left thumb pain and joint swelling. [...] in three months' time unless otherwise indicated.[facility] [id number] Evaluation note* Encounter Date Diagnosis Assessment Notes [...] will help you get into a specialist. [employer] Other chief complaint+Reason for visit Narrative* Chief Complaint N54.2 Self Referral [facility] Work Phone: Chiwc complaint+Reason for visit Narrative* Chief Complaint N54.2 Self Referral [id number] m54.12 m54.2 [facility] Work Phone: Chipq complaint+Reason for visit Narrative* Chief Complaint N54.2 Self Referral [id number] m54.12 m54.2 isidro, [id number] [facility] Work Phone: Discharge summary Author Zeke Brennan [facility] Note Date/Time August 21, 2024 2:14 pm [facility] [address] [place] [address] Discharge Summary Signed Patient: Jeremie Bennett MR#: [id number] : 1940 Acct:[id number] Age/Sex: 83 / M Adm Date: 5 Loc: Room: [address] [place] [address]: Zeke Brennan MD Copies to: MD Demetrius Fam MD~ Providers Date of Discharge: 08/21/24 Discharging Provider: Zeke Brennan Primary Care Provider: Demetrius Cooper Consults: 08/20/24 22:01 Consult to Infectious Diseases Routine Comment: Consulting Provider: Yash Thomas Reason For Exam: Fever of unknown origin, on chemotherapy Has Provider Been Notified: Yes Date of Notification: 08/21/24 Time of Notification: 07:02 08/21/24 02:07 Consult to Physical Therapy Routine Comment: Physician Instructions: Consult to PT for:: Evaluation and Treat 08/21/24 07:49 Consult to Occupational Therapy Routine Comment: Physician Instructions: Consult to OT for:: Evaluation and Treat 08/21/24 10:30 MBS [Speech Therapy Modified Barium Swallow] ONCE Comment: Diet per ST Recommendations: Yes Discharge Diagnosis Final Diagnosis Final Discharge Diagnosis: Fever, aspiration pneumonitis Chronic problems 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 tach GERD ISIDRO Dyslipidemia Sleep disorder Hypertension Diabetes Summary Hospital Course Hospital course: Patient is an 83-year-old male, with carcinoma of the tongue, metastasized to bilateral cervical lymph nodes for which he is receiving chemotherapy and radiation at this time. He presented to the emergency department on August 20 complaining of a fever, weakness. There is also a mildly productive cough. Initial evaluation showed possible bilateral pulmonary infiltrates. There is noleukocytosis, neutrophilia or neutropenia. He was admitted to the hospital for broad-spectrum antibiotic therapy. The following day he was very much better, fevers resolved promptly. Mostly diagnosis is aspiration pneumonia or pneumonitis in the setting of his dysphagiarelated to head and neck cancer. He received his radiation therapy. No complications occurred and he was discharged home stable condition the followingday with few more days of oral antimicrobial therapy with cefpodoxime. Time Spent with Patient Time spent providing/coordinating discharge services (# min): 40 Discharge Plan Discharge Plan Patient Disposition: Home Activity: No Activity Restriction Diet: Regular Additional Instructions: ST recommends a diet of mechanical soft solids, ground meats with extra gravy, and nectar-thickened liquids with no straw. Thin water ok in between meals. Pills crushed in applesauce. Intermittent feeding supervision during meals. Instructions: Know your Meds Prescriptions: New cefpodoxime 200 mg tablet 200 mg PO BID 3 Days Qty: 6 0RF Rx Instructions: must administer with a meal/food Continued Magic Mouthwash w/Lidocaine 240 mL Bottle 240 mL bottle 10 ml PO QID PRN (Reason: mucositis) Qty: 240 0RF Rx Instructions: Take 10ml by mouth, four times a day, as needed. SWISH AND SWALLOW. sennosides [Black-Draught Lax-Senna] 8.6 mg tablet 8.6 mg PO BID PRN (Reason: constipation) 30 Days Qty: 60 3RF Rx Instructions: Use if no bowel movement daily nystatin 500,000 unit tablet 500,000 unit PO QID 14 Days Qty: 56 0RF silver sulfadiazine [Silvadene] 1 % cream 1 applic topical BID Qty: 50 0RF Rx Instructions: Apply to open areas on radiation site, twice a day, until healed. fluticasone propionate 50 mcg/actuation spray,suspension 2 spray INTRANASAL QAM Rx Instructions: FreeTextSig: Nasal; Note: Source Status: Taking; Qty: 16 Unspecified; Provider: Boy Jaquez ( ) oxycodone 5 mg/5 mL solution 10 mg PO Q4HR PRN (Reason: pain) 15 Days Qty: 750 0RF fentanyl 12 mcg/hr patch 72 hour 1 patch transdermal Q72HR 15 Days Qty: 5 0RF lidocaine-prilocaine 2.5-2.5 % cream 2 g topical ONCE PRN (Reason: pain) Qty: 30 2RF Rx Instructions: Apply 1 hour prior to accessing port. olanzapine 2.5 mg tablet 2.5 mg PO BID Qty: 30 1RF albuterol sulfate 90 mcg/actuation aerosol powdr breath activated 1 inh inhalation Q4-6H PRN (Reason: shortness of breath or wheezing) metformin 500 mg tablet 500 mg PO QAM omeprazole 40 mg capsule,delayed release(DR/EC) 40 mg PO QAM multivitamin [Multiple Vitamins] Tablet 1 tab PO DAILY aspirin 81 mg tablet,chewable 81 mg PO DAILY ondansetron 8 mg tablet,disintegrating 8 mg PO Q8HR PRN (Reason: nausea and vomiting) Qty: 30 2RF dorzolamide 2 % drops 1 drp ophthalmic (eye) BID latanoprost 0.005 % drops 1 drp ophthalmic (eye) QPM furosemide 20 mg tablet 20 mg PO QAM famotidine 20 mg tablet 20 mg PO QPM tizanidine 4 mg tablet 4 mg PO QPM rosuvastatin 10 mg tablet 10 mg PO QPM amlodipine 5 mg tablet 5 mg PO QAM clopidogrel 75 mg tablet 75 mg PO DAILY zonisamide 25 mg capsule 25 mg PO BID irbesartan 300 mg tablet 300 mg PO QAM sotalol 80 mg tablet 40 mg PO BID isosorbide mononitrate 30 mg tablet extended release 24 hr 30 mg PO QAM Other Ambulatory Orders: PT/OT/SP OutPatient Referral (Routine) Timeframe: 1 Day Location: Determined by Patient Ordered By: Zeke Brennan Follow Up: Demetrius Cooper MD [Primary Care Provider] - Continuity of Care Document Health Concerns: A [facility] screening has identified you as FRAIL or AT RISK FOR FRAILTY. This puts you at a higher risk for infection, illness, falls,and other injuries. Here are four ways to help you reduce your risk of frailty: 1. IDENTIFY EARLY SIGNS OF FRAILTY ? Discuss contributing factors and concerns with your doctor 2. BE ACTIVE ? Walking and light strengthening exercises will help reduce weakness 3. EAT WELL ? Aim for three healthy meals a day that are high in protein 4. THINK POSITIVE ? Keep your mind active by being sociable and continuing to learn References: Stay Strong: Four Ways to Beat the Frailty Risk [email or web address]-[email or web address]/xtlh-[email or web address]-wxzj- dbtw-xj-eikn-wai-nnkvvhq-pqvo Exam Physical Exam Vital Signs: Temp Pulse Resp BP Pulse Ox O2 Del Method 98 F 76 18 122/57 L 96 Room Air 08/21/24 11:36 08/21/24 11:36 08/21/24 11:36 08/21/24 11:36 08/21/24 11:36 08/21/24 11:36 Diagnostic Studies Completed and Pending Studies Pending studies at discharge: 08/20/24 21:51 Blood Culture Stat Preliminary micro results at discharge 08/20/24 17:32 Blood Culture - Pending Blood - Other 08/20/24 21:51 Blood Culture - Pending Blood - Right Antecubital Labs on day of discharge: 08/21/24 04:05: Corrected WBC 6.2, Uncorrected WBC Count 6.2, RBC 3.33 L, Hgb 10.4 L, Hct 30.5 L, MCV 91.6, MCH 31.3, MCHC 34.2, RDW 14.8, Plt Count 190, MPV 8.2, Neut % (Auto) 75.8, Lymph % (Auto) 9.0, Hamilton % (Auto) 13.6, Eos % (Auto) 1.0, Baso % (Auto) 0.6, Nucleat RBC Rel Count 0.1, Neut # (Auto) 4.7, Lymph # (Auto) 0.6 L, Hamilton # (Auto) 0.8, Eos # (Auto) 0.1, Baso # (Auto) 0.0, PHA Creatinine Clear 59.79, Sodium 138, Potassium 3.3 L, Chloride 108 H, Carbon Dioxide 24.2, Anion Gap 9.1, BUN 10, Creatinine 0.75, Est GFR (CKD-EPI) > 60.0, Glucose 94, Calcium 8.2 L, Magnesium 1.8 L, Total Bilirubin 0.6, AST 15, ALT 14,Alkaline Phosphatase 52, Total Protein 5.3 L, Albumin 2.9 L, Globulin 2.4, Albumin/Globulin Ratio 1.2 08/20/24 19:00: Urine Color Light-yellow, Urine Appearance Clear, Urine pH 5.5, Ur Specific [place] 1.017, Urine Protein Negative, Urine Glucose (UA) Normal, Urine Ketones 1+ H, Urine Occult Blood Negative, Urine Nitrite Negative, Urine Bilirubin Negative, Urine Urobilinogen Normal, Ur Leukocyte Esterase Negative 08/20/24 17:48: COVID-19 Clin Com Not detected 08/20/24 17:34: Troponin I High Sens 12 08/20/24 17:20: Corrected WBC 7.4, Uncorrected WBC Count 7.4, RBC 3.68 L, Hgb 11.4 L, Hct 34.2 L, MCV 92.9, MCH 31.0, MCHC 33.4, RDW 14.8, Plt Count 234, MPV 8.1, Neut % (Auto) 77.0, Lymph % (Auto) 10.5, Hamilton % (Auto) 11.3, Eos % (Auto) 0.7, Baso % (Auto) 0.5, Nucleat RBC Rel Count 0.2, Neut # (Auto) 5.7, Lymph # (Auto) 0.8 L, Hamilton # (Auto) 0.8, Eos # (Auto) 0.1, Baso # (Auto) 0.0, Monocyte Dist Width 23.19 H, ESR 42 H, PT 12.9, INR 1.1, Lactic Acid 0.8, C-Reactive Prot, Quant Cancelled 08/20/24 12:20: PHA Creatinine Clear 58.71, Sodium 136, Potassium 3.7, Chloride 104, Carbon Dioxide 25.4, Anion Gap 10.3, BUN 16, Creatinine 0.85, Est GFR (CKD-EPI) > 60.0, Glucose 106 H, Calcium 8.4 L, Total Bilirubin 0.6, AST 18, ALT 17, Alkaline Phosphatase 66, C-Reactive Prot, Quant 3.3 H, Total Protein 5.9 L, Albumin 3.4 L, Globulin 2.5, Albumin/Globulin Ratio 1.4 Documented By: Zeke Brennan MD 08/21/24 1407 Signed By: <Electronically signed by Zeke Brennan MD> 08/21/[address] [facility] Work Phone: Evaluation + Plan note No data available for this section [facility] Future App[facility]ments Appointment Date:11/23/2022 09:00:00 AM Scheduled Provider:Demetrius Cooper MD Location:[facility]ment Type: [facility] Future Appointments Appointment Date:12/15/2022 12:00:00 PM Scheduled Provider:Anjali Ruby CNP Location:[facility] Appointment Type:[facility] Patient Appointment Date:05/31/2023 09:00:00 AM Scheduled Provider:Demetrius Cooper MD Location:[facility] Appointment Type: Open Appointment Date:11/08/2023 01:00:00 PM Scheduled Provider: Location:[facility] Appointment Type:FM Medicare Wellness Subsequent Future Scheduled Tests Laboratory* HgbA1c 11/23/22 * CBC w/ Auto Diff 11/23/22 * Comprehensive Metabolic Panel 11/23/22 * [facility] App[facility]ments Appointment Date:05/31/2023 09:00:00 AM Scheduled Provider:Demetrius Cooper MD Location:[facility] Appointment Type: Open Appointment Date:11/08/2023 01:00:00 PM Scheduled Provider: Location:[facility] Appointment Type:FM Medicare Wellness Subsequent Future Scheduled Tests Laboratory* HgbA1c 11/23/22 * CBC w/ Auto Diff 11/23/22 * Comprehensive Metabolic Panel 11/23/22 * Lipid Panel 11/23/22 [facility] App[facility]ments Appointment Date:05/31/2023 09:00:00 AM Scheduled Provider:Demetrius Cooper MD Location:[facility] Appointment Type: Open Appointment Date:11/08/2023 01:00:00 PM Scheduled Provider: Location:[facility] Appointment Type:FM Medicare Wellness Subsequent Future Scheduled Tests Laboratory* HgbA1c 11/23/22 * CBC w/ Auto Diff 11/23/22 * Comprehensive Metabolic Panel 11/23/22 * Lipid Panel 11/23/22 Radiology* CT Abdomen w/ Contrast 01/12/23 [facility] Evaluation + Plan note Future Appointments Appointment Date:05/03/2023 01:40:00 PM Scheduled Provider:Anjali Ruby CNP Location:[facility] Appointment Type:[facility] Follow Up Appointment Date:05/31/2023 09:00:00 AM Scheduled Provider:Demetrius Cooper MD Location:[facility] Appointment Type: Open Appointment Date:11/08/2023 01:00:00 PM Scheduled Provider: Location:[facility] Appointment Type:FM Medicare Wellness Subsequent Future Scheduled Tests Laboratory* HgbA1c 11/23/22 * CBC w/ Auto Diff 11/23/22 * Comprehensive Metabolic Panel 11/23/22 * Lipid Panel 11/23/22 [facility] Evaluation + Plan note Future Appointments Appointment Date:05/03/2023 01:40:00 PM Scheduled Provider:Anjali Ruby CNP Location:[facility] Appointment Type:[facility] Follow Up Appointment Date:05/31/2023 10:00:00 AM Scheduled Provider:Demetrius Cooper MD Location:[facility] Appointment Type: Open Appointment Date:11/08/2023 01:00:00 PM Scheduled Provider: Location:[facility] Appointment Type:FM Medicare Wellness Subsequent Future Scheduled Tests Laboratory* HgbA1c 11/23/22 * CBC w/ Auto Diff 11/23/22 * Comprehensive Metabolic Panel 11/23/22 * Lipid Panel 11/23/22 [facility] evaluation + Plan note Future Appointments Appointment Date:05/03/2023 01:40:00 PM Scheduled Provider:Anjali Ruby CNP Location:[facility] Appointment Type:[facility] Follow Up Appointment Date:05/31/2023 10:00:00 AM Scheduled Provider:Demetrius Cooper MD Location:[facility] Appointment Type: Open Appointment Date:11/08/2023 01:00:00 PM Scheduled Provider: Location:[facility] Appointment Type: Medicare Wellness Subsequent Diagnostic Tests Pending * O & P Exam, Routine 03/10/23 * Giardia lamblia, Direct Detection EIA 03/10/23 Future Scheduled Tests Laboratory* HgbA1c 11/23/22 * CBC w/ Auto Diff 11/23/22 * Comprehensive Metabolic Panel 11/23/22 * Lipid Panel 11/23/22 [facility] App[facility]ments Appointment Date:05/31/2023 10:00:00 AM Scheduled Provider:Demetrius Cooper MD Location:[facility] Appointment Type: Open Appointment Date:06/25/2023 01:20:00 PM Scheduled Provider:Anjali Ruby CNP Location:[facility] Appointment Type:[facility] Follow Up Appointment Date:11/08/2023 01:00:00 PM Scheduled Provider: Location:[facility] Appointment Type: Medicare Wellness Subsequent Future Scheduled Tests Laboratory* HgbA1c 11/23/22 * CBC w/ Auto Diff 11/23/22 * Comprehensive Metabolic Panel 11/23/22 * Lipid Panel 11/23/22 [facility] Evaluation + Plan note Future Appointments Appointment Date:10/21/2023 03:00:00 PM Scheduled Provider:Inez Henderson MD Location:[facility] Appointment Type:[facility] Follow Up Appointment Date:11/08/2023 01:00:00 PM Scheduled Provider: Location:[facility] Appointment Type: Medicare Wellness Subsequent Appointment Date:11/29/2023 10:15:00 AM Scheduled Provider:Demetrius Cooper MD Location:[facility] Appointment Type: Open Future Scheduled Tests Laboratory* U Protein/Creat Ratio 05/31/23 * HgbA1c 11/23/22 * HgbA1c 05/31/23 * Microalbumin Level Urine 05/31/23 * CBC w/ Auto Diff 11/23/22 * Comprehensive Metabolic Panel 11/23/22 * Lipid Panel 11/23/22 [facility] Evaluation + Plan note Future Appointments Appointment Date:10/21/2023 03:00:00 PM Scheduled Provider:Inez Henderson MD Location:[facility] Appointment Type:BAD Follow Up Appointment Date:11/08/2023 01:00:00 PM Scheduled Provider: Location:[facility] Appointment Type: Medicare Wellness Subsequent Appointment Date:11/29/2023 10:15:00 AM Scheduled Provider:Demetrius Cooper MD Location:[facility] Appointment Type: Open Diagnostic Tests Pending * Celiac Disease Comprehensive 09/17/23 Future Scheduled Tests Laboratory* U Protein/Creat Ratio 05/31/23 * HgbA1c 11/23/22 * HgbA1c 05/31/23 * Microalbumin Level Urine 05/31/23 * CBC w/ Auto Diff 11/23/22 * Comprehensive Metabolic Panel 11/23/22 * Lipid Panel 11/23/22 [facility]ments Appointment Date:11/08/2023 01:00:00 PM Scheduled Provider: Location:[facility] Appointment Type:FM Medicare Wellness Subsequent Appointment Date:11/29/2023 10:15:00 AM Scheduled Provider:Demetrius Cooper MD Location:[facility] Appointment Type: Open Appointment Date:03/23/2024 02:45:00 PM Scheduled Provider:Inez Henderson MD Location:[facility] Appointment Type:[facility] Follow Up Future Scheduled Tests Laboratory* U Protein/Creat Ratio 05/31/23 * HgbA1c 11/23/22 * HgbA1c 05/31/23 * Microalbumin Level Urine 05/31/23 * CBC w/ Auto Diff 11/23/22 * Comprehensive Metabolic Panel 11/23/22 * Lipid Panel 11/23/22 Radiology* MRI Cholangiogram Pancreatography (mrcp) 10/21/23 [facility] Evaluation + Plan note Future Appointments Appointment Date:11/29/2023 10:15:00 AM Scheduled Provider:Demetrius Cooper MD Location:[facility] Appointment Type: Open Appointment Date:03/23/2024 02:45:00 PM Scheduled Provider:Inze Henderson MD Location:[facility] Appointment Type:[facility] Follow Up Appointment Date:11/06/2024 02:30:00 PM Scheduled Provider: Location:[facility] Appointment Type: Medicare Wellness Subsequent Future Scheduled Tests Laboratory* U Protein/Creat Ratio 11/24/23 * U Protein/Creat Ratio 05/31/23 * HgbA1c 11/30/23 * HgbA1c 11/23/22 * HgbA1c 05/31/23 * Microalbumin Level Urine 11/24/23 * Microalbumin Level Urine 05/31/23 * CBC w/ Auto Diff 11/23/22 * Comprehensive Metabolic Panel 11/23/22 * Lipid Panel 11/08/23 * Lipid Panel 11/23/22 [facility] App[facility]ments Appointment Date:04/17/2024 10:00:00 AM Scheduled Provider:Demetrius Cooper MD Location:[facility] Appointment Type: Open Appointment Date:11/06/2024 02:30:00 PM Scheduled Provider: Location:[facility] Appointment Type:FM Medicare Wellness Subsequent Future Scheduled Tests Laboratory* U Protein/Creat Ratio 11/24/23 * U Protein/Creat Ratio 05/31/23 * HgbA1c 11/30/23 * HgbA1c 05/31/23 * Microalbumin Level Urine 11/24/23 * Microalbumin Level Urine 05/31/23 * Lipid Panel 11/08/23 Radiology* MRI Cholangiogram Pancreatography (mrcp) 03/23/24 [facility] Evaluation + Plan note Future Appointments Appointment Date:11/06/2024 02:30:00 PM Scheduled Provider: Location:[facility] Appointment Type: Medicare Wellness Subsequent Appointment Date:11/06/2024 03:30:00 PM Scheduled Provider:Demetrius Cooper MD Location:[facility] Appointment Type: Open Future Scheduled Tests Laboratory* U Protein/Creat Ratio 11/24/23 * U Protein/Creat Ratio 05/31/23 * HgbA1c 11/30/23 * HgbA1c 05/31/23 * Microalbumin Level Urine 11/24/23 * Microalbumin Level Urine 05/31/23 * Lipid Panel 11/08/23 [facility] + Plan note Future Appointments Appointment Date:11/21/2024 02:30:00 PM Scheduled Provider: Location:[facility] Appointment Type: Medicare Wellness Subsequent Appointment Date:11/21/2024 03:20:00 PM Scheduled Provider:Demetrius Cooper MD Location:[facility] Appointment Type: Open Diagnostic Tests Pending * Urine Culture 08/30/24 Future Scheduled Tests Laboratory* U Protein/Creat Ratio 11/24/23 * HgbA1c 11/30/23 * Microalbumin Level Urine 11/24/23 * Lipid Panel 11/08/23 [facility] evalugforn noteNo Assessments Information Available [facility] assessment information available [facility] Work Phone: evaluation note* Diagnosis 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 [facility] Diagnosis 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 [facility]* Diagnosis Onset Date Resolution Status Viral URI with cough noneact rosa Impacted cerumen, bilateral noneactive Central sleep apnea acute DM (diabetes mellitus) acute Essential hypertension acute Obstructive sleep apnea acut e [facility] Work Phone: Evalujbbit note* Diagnosis 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 [facility] Diagnosis Migraine without aura and without status migrainosus, not intractable (CMS/HCC)- Primary Vertigo Dizziness and giddiness Lumbar radiculopathy Thoracic or lumbosacral neuritis or radiculitis, unspecified Neck pain Cervicalgia Degenerative disc disease, cervical Polyneuropathy Unspecified hereditary and idiopathic peripheral neuropathy documented in this encounter [facility]* Diagnosis LAD (lymphadenopathy) of right cervical region- Primary documented in this encounter [facility]* Diagnosis 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 [facility] Diagnosis Oral ulcer- Primary Other and unspecified diseases of the oral soft tissues 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) documented in this encounter [facility]* Diagnosis 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 Ulcer of gingiva documented in this encounter [facility]* Diagnosis Malignant neoplasm metastatic [...] mouth, part unspecified documented in [facility] Work Phone: Evaluation note* Diagnosis Parotid mass- Primary Swelling, mass, or lump in head and neck documented in this encounter [facility]* Diagnosis 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, part unspecified 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, part unspecified Acute postoperative pain Other acute postoperative pain Primary hypertension Unspecified essential hypertension Coronary artery disease involving autologous artery coronary bypass graft Pacemaker Cardiac pacemaker in situ Stented coronary artery Postsurgical percutaneous transluminal coronary angioplasty status Ventricular tachycardia (Multi) Paroxysmal ventricular tachycardia ISIDRO (obstructive sleep apnea) Obstructive sleep apnea (adult) (pediatric) Gastroesophageal reflux disease Esophageal reflux Dysphagia Diabetes mellitus, type 2 (Multi) Type II or unspecified type diabetes mellitus without mention of complication, not stated as uncontrolled documented in this encounter [facility] Work Phone: Evaluation note* 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 head, face, and neck documented in this encounter [facility] Work Phone: Evaluation note* Diagnosis Enlarged submental lymph node documented in this encounter [facility] Work Phone: Evaluation note* Diagnosis Poor intravenous access- Primary 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, unspecified site documented in this encounter [facility] HealthcareEvaluation note* Diagnosis Sensorineural hearing loss, bilateral- Primary Tinnitus, bilateral Unspecified tinnitus documented in this encounter [facility] HealthcareEvaluation note* Diagnosis Personal history of malignant neoplasm of head and neck- Primary Personal history of malignant neoplasm of other site Dysphagia, unspecified type documented in this encounter [facility] Work Phone: Evaluation note* Diagnosis Esophageal dysphagia- Primary Dysphagia, pharyngoesophageal phase documented in this encounter [facility] HealthcareHistory general Narrative - Reported* Type Description Date Medical History DM (diabetes mellitus) Medical History HTN (hypertension) Medical History Hypercholesteremia Medical History Vitamin D deficiency, unspecifie d Medical History CAD (coronary artery disease) Surgical History Neck Surgery Surgical History cholecystectomy Surgical History cardiac stent Surgical History prostatectomy Surgical History hernia Hospitalization History see above [facility] Other Histhrb general Narrative - Reported* Type Description Date [...] Surgical History hernia Hospitalization History see above [facility] Other Hospital Discharge instructions No data available for this section [facility] Orders* Referral to Palliative Medicine Time Frame: 06/14/24, Location: None Selected * RISE Order Location: None Selected [facility] Work Phone: Progress note No data available for this section [facility] Author Talib Faustin [facility] Note Date/Time June 14, 2024 1 1:06[facility] [place] [address] Cancer Center Note Signed Patient: Jeremie Bennett MR#: [id number] : 1940 Acct:[id number] Age/Sex: 83 / M Type: REG AMB Date of Service: 06/14/24 Copies to: MD Demetrius Harley MD~ Assessment & Plan A/P (1) Squamous cell carcinoma of oropharynx: (2) Tongue cancer: Plan Stage II, 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 Left mandible biopsywas benign tissue with inflammation only. 06/05/[address] biopsy was positive for metastatic non keratinizing SCC, High risk HPV FISH was positive in tumor cells, P16 by IHC was equivocal. As per the [facility] tumor board recommendation is either doing extensive surgery or concurrent chemoradiation and patient and family decided togo with concurrent chemoradiation. He has bilateral hearing deficiency and tinnitus for years for which she wears hearing aids intermittently. However he can hear the conversation today and he said his hearing deficiency is mostly on high-frequency. Plan: Obtain audiogram to assess his current hearing loss status. Chemo consent obtained for both the weekly cisplatin and weekly carboplatin Taxol and concurrent with radiation depending on the results of the audiogram. Plan for concurrent chemoradiation to start with the weekly cisplatin if the audiogram test revealed only mild to moderate hearing loss however if it severe then we will change to carboplatin and Taxol. Dr. Gray is debating between musicians radiation in 1 versus concurrent chemoradiation setting that he has severe Last week as the benefit is mostly from the cisplatin and last from the carboplatin and Taxol. Return on week 2 of treatment. Patient Instructions: patient will call to get hearing test Dr Ham will consent for carbo/taxol and cisplatin decide after hearing test chemo with XRT port referal CHEMO PLAN No Active Chemotherapy History of Present Illness SANTOSH Adam is an 83-year-old gentleman who lives in [facility] was referred to our medical oncology office from [facility] for his a new base of the tongue squamous cell carcinoma after was seen at [facility] ENT and underwent a biopsy. He is here as an initial consult accompanied by his spouse. He underwent FNA biopsy of the right enlarged cervical lymph node which came back positive for p16 positive squamous cell carcinoma. PET CT scan 03/27/24 revealed FDG avidity bilateral cervical nodes and left mandible. CT of the neck 02/14/24 revealed incidental right parotid nodule with enlarged right level 2B and left level 2A lymph nodes. There is stenosis of the left ICAas well. 04/07/2024 in office biopsy at ENT office of the left mandible irregularities revealed benign tissue with inflammation. 05/11/2024 direct laryngoscopy with biopsy of the right base of the tongue lesion revealed p16 positive squamous cell carcinoma. Tumor board at [facility] in [facility] and the recommended concurrent chemoradiation. Past medical history is positive for ventricular tachycardia with pacemaker in place and is planning to have it replaced with a end of June 2024. He has ahistory of coronary artery disease with stents on Plavix. And history of diabetes mellitus type 2 hypertension and hyperlipidemia. He quit smoking about 42 years ago. He quit using smokeless tobacco as well. He drinks alcohol about 2 standard drinks of alcohol per week. His case was discussed at head and neck tumor board. They stated he needs tohave a biopsy of the contralateral lymph node that lit up on PET/CT. She was scheduled to have it done on 06/05/2024. Option of treatment would be surgery versus concurrent chemoradiation. Surgery would involve transoral robotic surgery to approach and fully resect the primary tumor and neck dissection to remove the cervical lymph nodes. He may still need radiation afterwards. Patient discussed the plans are or treatment options with his family and they decided to proceed with concurrent chemoradiation. Since he lives in [place] he was referred by Dr. Mary Ly from ENT at [facility] to our medical oncology and radiation oncology at [facility]. 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 Left mandible biopsy was benign tissue with inflammation only. 06/05/[address] biopsy was positive for metastatic non keratinizing SCC, High risk HPV FISH was positive in tumor cells, P16 by IHC was equivocal. Review of systems positive for some dysphagia and pain with swallowing and appetite is not that great. Rest of 14 point systems were reviewed and are otherwise negative. Intake Vitals/Pain Assessment 06/14/24 09:53 Height 5 ft 6 in Weight 77.564 kg BMI 27.6 Body Fat % 47.09 BP 103/67 Blood Pressure Location Rt brachial Position Sitting Temp 97.6 F Temp Source Temporal Pulse 69 Pulse Source NIBP Respiration 20 Pulse Oximetry (%) 96 Oxygen Delivery Method room air Are you having pain? No Intake Visit Reasons: NEW-Mal Miguel base of tongue Accompanied by: Spouse Allergies adhesive Allergy (Unknown, Verified 06/14/24 10:47) rash niacin (Niaspan Extended-Release) Allergy (Unknown, Verified 06/14/24 10:47) hives - Last Reconciled 06/14/24 by EDIS Negron albuterol sulfate 90 mcg/actuation 1 inh inhalation Q4-6H PRN amlodipine 5 mg PO DAILY aspirin 81 mg PO DAILY zfpulez-hsiolhifrzvpc-krxduveo 250-250-65 mg (Excedrin Migraine) 1 tab PO Q4-6H PRN clopidogrel 75 mg PO DAILY diphenhydramine-acetaminophen 25-500 mg (Tylenol PM Extra Strength) 1 tab PO QHSPRN dorzolamide 2% drps ophthalmic (eye) famotidine 20 mg PO DAILY furosemide 20 mg PO DAILY irbesartan 300 mg PO DAILY isosorbide mononitrate ER mg PO latanoprost 0.005% drps ophthalmic (eye) DAILY metformin 500 mg PO DAILY multivitamin (Multiple Vitamins tablet) 1 tab PO DAILY omeprazole 40 mg PO DAILY rosuvastatin 10 mg PO DAILY sotalol 80 mg PO DAILY tizanidine 4 mg PO ONCE zonisamide mg PO Gastrointestinal Is the patient taking opioids for pain control?: No Bowel Protocol for Opioids Given: No Bowel Pattern: Irregular Bowel Movement Aid(s): Psyllium [place] Fall Precaution Measures Taken: Patient in chair Nurse's Note: Patient is referr Cancer treatment education bag and all contents including My cancer treatmentguide, signs and symptoms sheet, yellow fever card, magnet, caregiver resource list, [facility] nutrition guide, and cancer rehabilitation pamphlet provided anddiscussed with patient. Patient also provided with copy of consent, doctors business card, and clinic contact information. Printed drug information also provided and discussed with patient. All questions were answered to patient?s satisfaction and patient verbalizes understanding. ed by Dr Mary Ly. Patient report some trouble swallowing as well. Had procedure 05/11 at . Patient is going to have pace maker replaced 07/10/2024 at [facility] Medical History Medical History (Updated 06/14/24 @ 11:03 by EDIS Minaya) 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 GERD (gastroesophageal reflux disease) Arthritis Vitamin D deficiency, unspecified Obstructive sleep apnea Hypercholesteremia Excessive daytime sleepiness Essential hypertension DM (diabetes mellitus) Malignant neoplasm of floor of mouth Hernia Hiatal Hernia Surgical History Surgical History (Updated 06/13/24 @ 14:46 by EDIS Minaya) History of biopsy Right base of tongue biopsy H/O glossectomy History of bronchoscopy History of laryngoscopy History of prostatectomy History of neck surgery History of cholecystectomy History of heart artery stent Family History Family History Father Glaucoma Mother History of stroke [facility] Problem: Diagnosed with Stroke Family history of emphysema Hypertension Heart disease Sister Cancer [facility] Fam[facility]x Problem: Diagnosed with Cancer Social History Social History (Updated 06/13/24 @ 14:48 by EDIS Minaya) Smoking status: Former smoker What tobacco products do you use: cigarettes Smoking quit date/years: >15 years ago Do you use any of these nicotine containing products: smokeless tobacco Smokeless tobacco user details: former Within the past year, how often did you have a drink containing alcohol: monthly or less Alcohol type details: 2 glasses of wine per week. Within the past year, how many standard drinks containing alcohol did you have on a typical day: 3 or 4 Within the past year, how often did you have six or more drinks on one occasion: never AUDIT-C Alcohol total score: 2 AUDIT-C Alcohol score interpretation: A score less than 4 is consistent with normal alcohol consumption. In the past 12 months, have you used illegal drugs or prescription drugs for non-medical reasons?: Yes Review of Systems ROS Details: All systems reviewed & no additional complaints except as documented General: Patient denied fevers, chills, rigors, weight loss or loss of appetite. Head: Patient denied any headaches or vision changes but positive for persistentbilateral tinnitus and hearing deficiency for which he wears hearing aid. Thoracic: Patient denied any shortness of breath or cough or hemoptysis Cardiovascular patient denies any chest pain or leg edema GI: Patient denies any nausea vomiting rectal bleed diarrhea : Patient denied gross hematuria. Hematology: Patient denied any bleeding from any source. No easy bruising. Lymphatic: No enlarged LAP anywhere. Skin: Normal skin exam no rashes or suspicious lesions. Neurological patient denies any headache or dizziness or focal weakness or sensory changes. Physical Exam EXAM HEENT normocephalic atraumatic pupils are equal and round. I could not see his tongue mass by visual exam of his oral cavity. Neck supple without thyromegaly but with bilateral mildly enlarged cervical lymphadenopathy in the submandibular areas. Chest clear to auscultation bilaterally without wheezing crackles or rhonchi Heart regular rate and rhythm S1-S2 without murmurs gallop or rub Abdomen soft nontender not distended without hepatosplenomegaly or masses clinically Extremities no edema of the lower extremities Skin without any suspicious rashes Lymphatic system no lymphadenopathy in the cervical area axillary areas or inguinal areas bilaterally Neurological exam patient is cooperative alert and oriented x3 no focal deficits. Results - [facility]tr (Med Onc) LAB RESULTS No Data to Display Dictated By: Talib Faustin MD DD/ [id number] Signed By: <Electronically signed by Talib Faustin MD> 06/14/24 1106 [facility] Work Phone: Progress note Author Talib Faustin [facility] Note Date/Time July 12, 2024 9:20am [facility] [place] [address] Cancer Center Note Signed Patient: Jeremie Bennett MR#: [id number] : 1940 Acct:[id number] Age/Sex: 83 / M Type: REG AMB Date of Service: 07/12/24 Copies to: Demetrius Cooper MD~ Assessment & Plan A/P (1) Squamous cell carcinoma of oropharynx: (2) Tongue cancer: Plan Stage II, 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 Left mandible biopsywas benign tissue with inflammation only. 06/05/[address] biopsy was positive for metastatic non keratinizing SCC, High risk HPV FISH was positive in tumor cells, P16 by IHC was equivocal. As per the [facility] tumor board recommendation is either doing extensive surgery or concurrent chemoradiation and patient and family decided togo with concurrent chemoradiation. He has bilateral hearing deficiency and tinnitus for years for which she wears hearing aids intermittently. However he can hear the conversation today and he said his hearing deficiency is mostly on high-frequency. Audiogram he has mild to severe bilateral hearing loss in some frequencies but normal speech hearing. Chemo consent obtained for both the weekly cisplatin and weekly carboplatin Taxol and concurrent with radiation depending on the results of the audiogram. Treatment Plan is for concurrent chemoradiation to start with the weekly cisplatin if the audiogram test revealed only mild to moderate hearing loss however if it severe then we will change to carboplatin and Taxol. 07/12/24: He is here for evaluation prior to week 2 of weekly Cisplatin scheduledon 07/13/24. He is here for toxicity check from his week 1 of cisplatin. Labs at [facility] on 07/03/24 revealed hgb 13.3, cr is 1.0. He is having his labs here today.He had his pacemaker placed on 07/10/24 in [place]. PLAN: proceed with week 2 cisplatin tomorrow while monitoring his hearing and his tinnitus for any changes. no changes so far. Labs weekly. RTC in 2 weeks for week 4 of Cisplatin. Port placement per patietn request. Return on week 2 of treatment. Patient Instructions: proceed with chemo tomorrow if labs ok follow up in 2 weeks CHEMO PLAN Treatment Plan Cisplatin 40mg/m2 Weekly with Radiation 1000 Criteria Clinical Indication No Indication Cycle Number Last Admin 1 of 1 Cycle Day Next Admin 7 of 43 No Active Chemotherapy History of Present Illness SANTOSH Adam is an 83-year-old gentleman who lives in [facility] was referred to our medical oncology office from [facility] for his a new base of the tongue squamous cell carcinoma after was seen at [facility] ENT and underwent a biopsy. He is here as an initial consult accompanied by his spouse. He underwent FNA biopsy of the right enlarged cervical lymph node which came back positive for p16 positive squamous cell carcinoma. PET CT scan 03/27/24 revealed FDG avidity bilateral cervical nodes and left mandible. CT of the neck 02/14/24 revealed incidental right parotid nodule with enlarged right level 2B and left level 2A lymph nodes. There is stenosis of the left ICAas well. 04/07/2024 in office biopsy at ENT office of the left mandible irregularities revealed benign tissue with inflammation. 05/11/2024 direct laryngoscopy with biopsy of the right base of the tongue lesion revealed p16 positive squamous cell carcinoma. Tumor board at [facility] in [facility] and the recommended concurrent chemoradiation. Past medical history is positive for ventricular tachycardia with pacemaker in place and is planning to have it replaced with a end of June 2024. He has ahistory of coronary artery disease with stents on Plavix. And history of diabetes mellitus type 2 hypertension and hyperlipidemia. He quit smoking about 42 years ago. He quit using smokeless tobacco as well. He drinks alcohol about 2 standard drinks of alcohol per week. His case was discussed at head and neck tumor board. They stated he needs tohave a biopsy of the contralateral lymph node that lit up on PET/CT. She was scheduled to have it done on 06/05/2024. Option of treatment would be surgery versus concurrent chemoradiation. Surgery would involve transoral robotic surgery to approach and fully resect the primary tumor and neck dissection to remove the cervical lymph nodes. He may still need radiation afterwards. Patient discussed the plans are or treatment options with his family and they decided to proceed with concurrent chemoradiation. Since he lives in [place] he was referred by Dr. Mary Ly from ENT at [facility] to our medical oncology and radiation oncology at [facility]. 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 Left mandible biopsy was benign tissue with inflammation only. 06/05/[address] biopsy was positive for metastatic non keratinizing SCC, High risk HPV FISH was positive in tumor cells, P16 by IHC was equivocal. Review of systems positive for some dysphagia and pain with swallowing and appetite is not that great. 07/12/24: He is here for evaluation prior to week 2 of weekly Cisplatin scheduledon 07/13/24. He is here for toxicity check from his week 1 of cisplatin. Labs at [facility] on 07/03/24 revealed hgb 13.3, cr is 1.0. He is having his labs here today.He had his pacemaker placed on 07/10/24 in [place]. Rest of 14 point systems were reviewed and are otherwise negative. Intake Vitals/Pain Assessment 07/12/24 08:41 Weight 76.657 kg BP 106/60 Blood Pressure Location Rt brachial Position Sitting Temp 97.3 F L Temp Source Temporal Pulse 61 Pulse Source NIBP Respiration 20 Pulse Oximetry (%) 96 Oxygen Delivery Method room air Are you having pain? Yes Intake Visit Reasons: Tox check Accompanied by: Spouse Allergies adhesive Allergy (Unknown, Verified 07/12/24 08:45) rash niacin (Niaspan Extended-Release) Allergy (Unknown, Verified 07/12/24 08:45) hives Home Medications - Last Reconciled 07/12/24 by EDIS Negron albuterol sulfate 90 mcg/actuation 1 inh inhalation Q4-6H PRN amlodipine 5 mg PO QAM aspirin 81 mg PO DAILY vobndkt-cyhfyunlqrast-jgmamxlk 250-250-65 mg (Excedrin Migraine) 1 tab PO Q4-6H PRN clopidogrel 75 mg PO DAILY diphenhydramine-acetaminophen 25-500 mg (Tylenol PM Extra Strength) 2 tabs PO QHS PRN dorzolamide 2% 1 drp ophthalmic (eye) BID doxycycline monohydrate 100 mg PO BID famotidine 20 mg PO QPM fluticasone propionate 50 mcg/actuation 2 sprays intranasal QAM furosemide 20 mg PO QAM irbesartan 300 mg PO QAM isosorbide mononitrate ER 30 mg PO QAM latanoprost 0.005% 1 drp ophthalmic (eye) QPM Magic Mouthwash w/Lidocaine 240 mL Bottle 10 mL PO QID PRN metformin 500 mg PO QAM mometasone 0.1% 1 applic topical DAILY multivitamin (Multiple Vitamins tablet) 1 tab PO DAILY omeprazole 40 mg PO QAM ondansetron 8 mg PO Q8HR PRN prochlorperazine maleate (Compazine) 10 mg PO Q8HR PRN psyllium husk (Fiber (psyllium husk)) 0.4 grams PO DAILY rosuvastatin 10 mg PO QPM sotalol 40 mg PO BID tizanidine 4 mg PO QPM zonisamide 25 mg PO BID Gastrointestinal Is the patient taking opioids for pain control?: No Bowel Protocol for Opioids Given: No Bowel Pattern: Regular Bowel Movement Aid(s): Stool Softener Falls Fall Precaution Measures Taken: Patient in chair Nurse's Note: Patient is here for a 1 month follow up, had pacemaker replaced on Wednesday. Scheduled for treatment tomorrow. No other concerns voiced at time of intake. [facility] Medical History Medical History (Updated 07/06/24 @ 09:33 by Viola Adan CMA) Prostate cancer surgery Neuropathy Vertigo Migraine Arthritis Glaucoma Pancreatic cyst Diverticulitis Artificial cardiac pacemaker V tach 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 GERD (gastroesophageal reflux disease) Arthritis Malignant neoplasm of floor of mouth Vitamin D deficiency, unspecified Obstructive sleep apnea Hypercholesteremia Hernia Hiatal Hernia Excessive daytime sleepiness Essential hypertension DM (diabetes mellitus) Surgical History Surgical History History of cervical spinal surgery History of tonsillectomy History of phacoemulsification of cataract of both eyes with intraocular lens implantation History of inguinal hernia repair, bilateral History of cardiac radiofrequency ablation (RFA) History of biopsy Right base of tongue biopsy H/O glossectomy History of bronchoscopy History of laryngoscopy History of prostatectomy History of neck surgery History of cholecystectomy History of heart artery stent x4 Family History Family History Father Glaucoma Mother Heart disease History of stroke [facility] Problem: Diagnosed with Stroke Hypertension Emphysema lung ESRD (end stage renal disease) Sister [facility]: Diagnosed with Cancer Lymphoma Social History Social History (Updated 06/13/24 @ 14:48 by EDIS Minaya) Smoking status: Former smoker What tobacco products do you use: cigarettes Smoking quit date/years: >15 years ago Do you use any of these nicotine containing products: smokeless tobacco Smokeless tobacco user details: former Within the past year, how often did you have a drink containing alcohol: monthly or less Alcohol type details: 2 glasses of wine per week. Within the past year, how many standard drinks containing alcohol did you have on a typical day: 3 or 4 Within the past year, how often did you have six or more drinks on one occasion: never AUDIT-C Alcohol total score: 2 AUDIT-C Alcohol score interpretation: A score less than 4 is consistent with normal alcohol consumption. In the past 12 months, have you used illegal drugs or prescription drugs for non-medical reasons?: Yes Review of Systems ROS Details: All systems reviewed & no additional complaints except as documented General: Patient denied fevers, chills, rigors, weight loss or loss of appetite. Head: Patient denied any headaches or vision changes but positive for persistentbilateral tinnitus and hearing deficiency for which he wears hearing aid. Thoracic: Patient denied any shortness of breath or cough or hemoptysis Cardiovascular patient denies any chest pain or leg edema GI: Patient denies any nausea vomiting rectal bleed diarrhea : Patient denied gross hematuria. Hematology: Patient denied any bleeding from any source. No easy bruising. Lymphatic: No enlarged LAP anywhere. Skin: Normal skin exam no rashes or suspicious lesions. Neurological patient denies any headache or dizziness or focal weakness or sensory changes. Physical Exam EXAM HEENT normocephalic atraumatic pupils are equal and round. I could not see his tongue mass by visual exam of his oral cavity. Neck supple without thyromegaly but with bilateral mildly enlarged cervical lymphadenopathy in the submandibular areas. Chest clear to auscultation bilaterally without wheezing crackles or rhonchi Heart regular rate and rhythm S1-S2 without murmurs gallop or rub Abdomen soft nontender not distended without hepatosplenomegaly or masses clinically Extremities no edema of the lower extremities Skin without any suspicious rashes Lymphatic system no lymphadenopathy in the cervical area axillary areas or inguinal areas bilaterally Neurological exam patient is cooperative alert and oriented x3 no focal deficits. Results - Cancer Ctr (Med Onc) LAB RESULTS Corrected WBC 8.4 X10E3/uL (4.1-10.5) 06/22/24 15: 5 Hgb 13.7 g/dL (13.0-17.0) 06/22/24 15:43 06/22/24 Hct 40.7 % (38.8-50.0) 06/22/24 15:43 06/22/24 MCV 92.0 fl (83.5-101) 06/22/24 15:43 06/22/24 RDW 13.4 % (12.0-14.8) 06/22/24 15:43 06/22/24 Plt Count 234 x10E3/uL (150-450) 06/22/24 15:43 06/22/24 Sodium 139 mmol/L (136-145) 06/22/24 15:43 06/22/24 Potassium 4.0 mmol/L (3.5-5.1) 06/22/24 15:43 06/22/24 BUN 19 mg/dL (7-25) 06/22/24 15:43 06/22/24 Creatinine 0.97 mg/dL (0.70-1.30) 06/22/24 15:43 06/22/24 Glucose 118 mg/dL (70-100) H 06/22/24 15:43 06/22/24 Est GFR (CKD-EPI) > 60.0 mL/Min 06/22/24 15:43 06/22/24 Calcium 9.0 mg/dL (8.6-10.3) 06/22/24 15:43 06/22/24 Dictated By: Talib Faustin MD DD/ [id number] Signed By: <Electronically signed by Talib Faustin MD> 07/12/24 0920 [facility] Work Phone: Progress note Author Zeke Brennan [facility] Note Date/Time August 21, 2024 2:14 pm [facility] [address] [place] [address] Hospitalist Progress Note Signed Patient: Jeremie Bennett MR#: [id number] : 1940 Acct:[id number] Age/Sex: 83 / M Adm Date: 5 Loc: Room: [address] [place] [address] Type: ADM IN Attending Dr: Zeke Brennan MD Copies to: ~ Date of Service: 08/21/2024 Subjective Subjective Narrative: Attending note: I saw the patient personally on the day of encounter. I reviewed the relevant history, and performed the kim elements of the physical examination. I reviewedthe relevant laboratory workup, radiological studies and the current treatment plan. I formulated the plan of care and confirmed it with the resident/student/RENTAL COORDINATOR. This patient presented to the emergency department yesterday with fever and general malaise. The patient states that today he is not feeling better. He endorses episodes of chills and continued malaise. He is denying other symptomssuch as chest pain, shortness of breath, coughing, wheezing, abdominal pain, change in stool habits, dysuria, polyuria. He states that he is having a sore throat, but has had this for the past several weeks and attributes this to his radiation therapy. The patient states that he has not been able to eat well over the past few weeks due to the sore throat. He states his diet has consisted of soup. Exam Physical Exam Vital Signs: Temp Pulse Resp BP Pulse Ox O2 Del Method 98.2 F 56 L 18 159/73 H 95 Room Air 08/21/24 08:00 08/21/24 08:00 08/21/24 08:00 08/21/24 08:00 08/21/24 08:00 08/21/24 08:00 Const General: cooperative, comfortable and no acute distress Nutritional Appearance: average body habitus Orientation: alert, awake and oriented x3 HEENT Head: normal to inspection Ears: hearing grossly normal bilaterally Nose: external nose normal Face and sinus: normal facial exam Throat: posterior oropharynx abnormal (Erythema) Eyes General: appearance normal, both eyes and all related structures Neck Neck: no lymphadenopathy and trachea midline Thyroid: thyroid normal Lymphatic: no lymphadenopathy noted Resp Effort & Inspection: normal respiratory effort, able to speak in complete sentences and symmetric chest movement Auscultation: clear to auscultation bilaterally Cardio Rate: regular rate Rhythm: regular rhythm Heart Sounds: S1 normal and S2 normal GI Inspection: normal to inspection Palpation: soft and nontender Auscultation: normal bowel sounds Skin General: no rashes or lesions noted Neuro General: patient alert, patient awake and patient oriented x3 Extrem General: normal to inspection Objective Lab Results 08/21/24 04:05 08/21/24 04:05 Microbiology Results Microbiology 08/20/24 17:48 Nasopharyngeal Respiratory Panel (PCR) - Final Meds Allergies and Active Meds Allergies adhesive Allergy (Unknown, Verified 08/20/24 21:27) rash niacin (Niaspan Extended-Release) Allergy (Unknown, Verified 08/20/24 21:27) hives Active Meds: Active Medications Generic Name Dose Route Start Last Admin Trade Name Freq PRN Reason Stop Dose Admin Albuterol 1 puff 08/20/24 22:58 Albuterol Hfa 60 Puff/8 Gram Inhaler INHALATION 08/20/25 22:57 Q4HR PRN shortness of breath or wheezin Aspirin 81 mg 08/21/24 09:00 08/21/24 09:01 Aspirin 81 Mg Tab.Chew PO 08/21/25 08:59 81 mg DAILY CINTHIA Administration Atorvastatin Calcium 20 mg 08/21/24 21:00 Atorvastatin 20 Mg Tablet PO 08/21/25 20:59 QPM CINTHIA Clopidogrel Bisulfate 75 mg 08/21/24 09:00 08/21/24 09:00 Clopidogrel Bisulfate 75 Mg Tablet PO 08/21/25 08:59 75 mg DAILY CINTHIA Administration Dorzolamide HCl 1 drops 08/21/24 09:00 08/21/24 09:04 Dorzolamide 2% Op Soln 200 Drops/10 Ml Bottle EYE-BOTH 08/21/25 08:59 1 drops BID CINTHIA Administration Famotidine 20 mg 08/21/24 21:00 Famotidine 20 Mg Tablet PO 08/21/25 20:59 QPM CITNHIA Fentanyl 12 mcg 08/21/24 11:30 08/21/24 11:29 Fentanyl Patch 12 Mcg/Hour Patch.Td72 TRANSDERML 12 mcg Q72HR CINTHIA Administration Protocol Fluticasone Propionate 2 spray 08/21/24 09:00 08/21/24 09:02 Fluticasone Propionate Geneva 120 Geneva/16 Gm Bottle INTRANASAL 08/21/25 08:59 2 spray QAM CINTHIA Administration Ceftriaxone Sodium 1 gm in 50 mls @ 100 mls/hr 08/21/24 22:00 Rocephin IV QHS CINTHIA Isosorbide Mononitrate 30 mg 08/21/24 09:00 08/21/24 09:00 Isosorbide Mononitrate 24hr Er 30 Mg Tab.Er.24h PO 08/21/25 08:59 30 mg QAM ICNTHIA Administration Latanoprost 1 drops 08/21/24 21:00 Latanoprost 0.005% Op Soln 50 Drops/2.5 Ml Bottle EYE-BOTH 08/21/25 20:59 QPM CINTHIA Lidocaine/Prilocaine 1 applic 08/20/24 21:59 Lidocaine-Prilocaine Cr 2.5-2.5% 5 Gm Tube TOPICAL 08/20/25 21:58 ONCE PRN pain Metformin HCl 500 mg 08/21/24 08:00 08/21/24 09:00 Metformin 500 Mg Tablet PO 08/21/25 07:59 500 mg DAILY@0800 CINTHIA Administration Multi-Ingredient Mouthwash/Gargle 10 ml 08/20/24 22:47 Magic Mouthwash With Lidocaine PO 08/20/25 22:46 QID PRN mucositis Nystatin 500,000 unit 08/21/24 09:00 08/21/24 09:01 Nystatin Susp 500,000 Unit/5 Ml Udc PO 08/21/25 08:59 500,000 unit QID CINTHIA Administration Olanzapine 2.5 mg 08/21/24 09:00 08/21/24 09:00 Olanzapine 2.5 Mg Tablet PO 08/21/25 08:59 2.5 mg BID CINTHIA Administration Ondansetron HCl 8 mg 08/20/24 22:50 Ondansetron Odt 4 Mg Tab.Rapdis PO 08/20/25 22:49 Q8HR PRN nausea and vomiting Oxycodone HCl 10 mg 08/20/24 22:51 08/21/24 09:01 Oxycodone Ir 5 Mg Tablet PO 10 mg Q4HR PRN Administration pain Pantoprazole Sodium 40 mg 08/21/24 09:00 08/21/24 09:00 Pantoprazole 40 Mg Tablet. PO 08/21/25 08:59 40 mg BID CINTHIA Administration Rivaroxaban 10 mg 08/21/24 22:00 Rivaroxaban 10 Mg Tablet PO 08/21/25 21:59 QHS CINTHIA Sennosides 8.6 mg 08/20/24 21:59 08/21/24 09:00 Sennosides 8.6 Mg Tablet PO 08/20/25 21:58 8.6 mg BID PRN Administration constipation Silver Sulfadiazine 1 applic 08/21/24 09:00 08/21/24 09:07 Silver Sulfadiazine 1% Cream 400 Gm Jar TOPICAL 08/21/25 08:59 1 applic BID CINTHIA Administration Sodium Chloride 0 ml 08/20/24 16:57 08/20/24 17:20 Sodium Chloride 0.9 % 10 Ml Syringe IV-PUSH 08/20/25 16:56 10 ml PRN PRN Administration Flush Sodium Chloride 10 ml 08/20/24 19:45 08/21/24 11:30 Sodium Chloride 0.9 % 10 Ml Syringe IV-PUSH 08/20/25 19:44 10 ml Q8H CINTHIA Administration Sotalol HCl 40 mg 08/21/24 09:00 08/21/24 09:01 Sotalol 80 Mg Tablet PO 08/21/25 08:59 40 mg BID CINTHIA Administration Tizanidine HCl 4 mg 08/21/24 21:00 Tizanidine 4 Mg Tablet PO 08/21/25 20:59 QPM CINTHIA Zonisamide 25 mg 08/21/24 09:00 08/21/24 09:00 Zonisamide 25 Mg Capsule PO 08/21/25 08:59 25 mg BID CINTHIA Administration A&P - Hospitalist Assessment/Plan (1) Immunosuppression: (2) Fever: (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 No neutropenia is present. The patient is on chemotherapy with docetaxel cisplatin. This patient just completed his sixth and final week of his most recent round this past . Fever of unknown origin ? Could be due to to spontaneous bacterial translocation in association with chemotherapy ? Blood cultures are still pending ? CT of the chest without contrast was unremarkable for infection ? ID has been consulted ? Zosyn has been replaced with ceftriaxone ? PT/OT consulted DVT prophylaxis: Heparin Diet: Dental soft diet Documented By: Zeke Brennan MD 08/21/24 1135 Signed By: <Electronically signed by Zeke Brennan MD> 08/21/24 1414 <Electronically signed by DO KASSY Lambert> 08/21/[address] 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] Procedures MS GLOSSECTOMY HEMIGLOSSECTOMY MS LARYNGOSCOPY W/WO TRACHEOSCOPY DX EXCEPT MS BRNCHSC INCL FLUOR GDNCE DX W/CELL WASHG SPX MS ESOPHAGOSCOPY FLEXIBLE TRANSORAL DIAGNOSTIC MS TONSILLECTOMY PRIMARY/SECONDARY AGE 11/> GLOSSECTOMY, ROBOT-ASSISTED, ORAL APPROACH Direct Laryngoscopy Bronchoscopy [place]ophag[place] T[place] [address] [id number] Phone: tel: fax: [facility] Johnny NORMAN [address] [place] [address] fax: Referral ID Status Reason Start Date Expiration Date Visits Re quested Visits Authorized [id number] 1 1 [facility] Work Phone: Reason for visit Narrative* Imaging (Routine) - Authorized Specialty Diagnoses / Procedures Referred By Contac t Referred To Contact Radiology Diagnoses Enlarged submental lymph node Procedures US guided biopsy lymph node superficial [place] [address] [place] [address] Phone: tel: fax: Referral ID Status Reason Start Date Expiration Date Visits Requested Visits Authorized [id number] Authorized Perform Procedure 4 05/12/2025 1 1 [facility] Work Phone: Summary Purpose Family History No Family History [...] Age at Onset Recorded Date/T olivia father Unknown Glaucoma Unknown mother Heart disease Unknown Unknown History of stroke Unknown Hypertension Unknown Pulmonary emphysema Unknown End-stage renal disease Unknown sister Unknown Malignant neoplasm Unknown Lymphoma Unknown Advance Directives No Advanced Directives Records Found Advance Directive Response Recorded Date/ Time Advance Directives No August 13, 10:26am Advance Directive Response Recorded Date/ Time Advance Directives No August 19 10:47am Advance Directive Response Recorded Date/ Time Advance Directives No August 19 9:47am Documents on File Type Date Recorded Patient 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 Healthcare Power of Atty 05/11/2024 Living Will 05/11/2024 Documents on File Type Date Recorded Patient 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 anation Healthcare Power of Atty 05/11/2024 Living Will 05/11/2024 Advance Directive Response Recorded Date/ Time Advance Directives Yes July 26 8:22am Advance Directive Response Recorded Date/ Time Advance Directives Yes July 27 9:02am Chief Complaint and Reason for Visit Chief [...] hypertension Obstructive sleep apnea Chief Complaint Unknown Chief Complaint Admit Date NEW-Mal Miguel base of tongue June 14, 2024 9:25am Mal Miguel base of tongue June 14 9:26am NEW tongue cancer June 14, 2024 1 0:28am Reason for Visit Admit Date Squamous cell carcinoma of oropharynx [facility] 2024 9:25am Tongue cancer June 14, 2024 9 :25am Squamous cell carcinoma of oropharynx [facility] 2024 10:28am Chief Complaint Admit Date NEW-Mal Miguel base of tongue June 14, 2024 9:25am NEW tongue cancer June 14, 2024 1 0:28am Mal Miguel base of tongue June 20 8:38am Mal Miguel base of tongue June 20 11:48am Tongue Cancer June 22, 2024 2 :47pm Chief Complaint Admit Date NEW-Mal Miguel base of tongue June 14, 2024 9:25am NEW tongue cancer June 14, 2024 1 0:28am Mal Miguel base of tongue June 20 11:48am Tongue Cancer June 22, 2024 2 :47pm Mal Miguel base of tongue July 06 1:45pm Mal Miguel base of tongue July 06 3:17pm Reason for Visit Admit Date Squamous cell carcinoma of oropharynx [facility] 2024 9:25am Tongue cancer June 14, 2024 9 :25am Squamous cell carcinoma of oropharynx [facility] 2024 10:28am Encounter for palliative care June 182024 8:00am Squamous cell carcinoma of oropharynx [facility] 2024 8:00am Chief Complaint Admit Date NEW-Mal Miguel base of tongue June 14, 2024 9:25am NEW tongue cancer June 14, 2024 1 0:28am Mal Miguel base of tongue June 20 11:48am Tongue Cancer June 22, 2024 2 :47pm Mal Miguel base of tongue July 05 11:00am Mal Miguel base of tongue July 06 1:45pm Mal Miguel base of tongue July 06 3:17pm Tox check July 12, 2024 8:29am Mal Miguel base of tongue July 12 9:30am Reason for Visit Admit Date Squamous cell carcinoma of oropharynx [facility] 2024 9:25am Tongue cancer June 14, 2024 9 :25am Squamous cell carcinoma of oropharynx [facility] 2024 10:28am Encounter for palliative care June 182024 8:00am Squamous cell carcinoma of oropharynx [facility] 2024 8:00am Cancer associated pain July 12 7:36am Nausea July 12, 2024 7:36am Squamous cell carcinoma of oropharynx [facility] 2024 7:36am Squamous cell carcinoma of oropharynx [facility] 2024 8:29am Tongue cancer July 12, 2024 8:29am Chief Complaint Admit Date NEW-Mal Miguel base of tongue June 14, 2024 9:25am NEW tongue cancer June 14, 2024 1 0:28am Mal Miguel base of tongue June 20 11:48am Tongue Cancer June 22, 2024 2 :47pm Mal Miguel base of tongue July 05 11:00am Mal Miguel base of tongue July 06 1:45pm Mal Miguel base of tongue July 06 3:17pm Tox check July 12, 2024 8:29am Mal Miguel base of tongue July 12 10:24am Chief Complaint Admit Date NEW-Mal Miguel base of tongue June 14, 2024 9:25am NEW tongue cancer June 14, 2024 1 0:28am Mal Miguel base of tongue June 20 11:48am Tongue Cancer June 22, 2024 2 :47pm Mal Miguel base of tongue July 05 11:00am Mal Miguel base of tongue July 06 1:45pm Mal Miguel base of tongue July 06 3:17pm Tox check July 12, 2024 8:29am Mal Miguel base of tongue July 12 10:24am Mal Miguel base of tongue July 13 9:28am tongue cancer July 17, 2024 10:0 5am Mal Miguel base of tongue July 17, 2024 1 :44pm Chief Complaint Admit Date NEW-Mal Miguel base of tongue June 14, 2024 9:25am NEW tongue cancer June 14, 2024 1 0:28am Mal Miguel base of tongue June 20 11:48am Tongue Cancer June 22, 2024 2 :47pm Mal Miguel base of tongue July 05 11:00am . July 06, 2024 8:00am Mal Miguel base of tongue July 06 1:45pm Mal Miguel base of tongue July 06 3:17pm Tox check July 12, 2024 8:29am Mal Miguel base of tongue July 12 10:24am Mal Miguel base of tongue July 13 9:28am tongue cancer July 17, 2024 10:0 5am Mal Miguel base of tongue July 19, 2024 9 :30am issues f/u prior to tx July 20, 2024 8 :23am Mal Miguel base of tongue July 20, 2024 9 :41am C10.9 July 20, 2024 10:3 0am Follow Up 2 Weeks July 26, 2024 8:1 3am Mal Miguel base of tongue July 26, 2024 9:30am Reason for Visit Admit Date Squamous cell carcinoma of oropharynx [facility] 2024 8:13am Cancer associated pain July 26, 2024 8:22am Nausea July 26, 2024 8:2 2am Squamous cell carcinoma of oropharynx [facility] 2024 8:22am Chief Complaint Admit Date NEW-Mal Miguel base of tongue June 14, 2024 9:25am NEW tongue cancer June 14, 2024 1 0:28am Mal Miguel base of tongue June 20 11:48am Tongue Cancer June 22, 2024 2 :47pm Mal Miguel base of tongue July 05 11:00am . July 06, 2024 8:00am Mal Miguel base of tongue July 06 1:45pm Mal Miguel base of tongue July 06 3:17pm Tox check July 12, 2024 8:29am Mal Miguel base of tongue July 12 10:24am Mal Miguel base of tongue July 13 9:28am tongue cancer July 17, 2024 10:0 5am Mal Miguel base of tongue July 19, 2024 9 :30am issues f/u prior to tx July 20, 2024 8 :23am Mal Miguel base of tongue July 20, 2024 9 :41am Mal Miguel base of tongue July 26, 2024 12:00am Follow Up 2 Weeks July 26, 2024 8:1 3am Mal Miguel base of tongue July 27, 2024 9:16am C10.9 July 27, 2024 10: 30am Mal Miguel base of tongue August 02, 2024 9:12am Reason for Visit Admit Date Squamous cell carcinoma of oropharynx [facility] 2024 8:13am Cancer associated pain July 26, 2024 8:22am Nausea July 26, 2024 8:2 2am Squamous cell carcinoma of oropharynx [facility] 2024 8:22am Cancer associated pain August 02, 2024 7:29am Constipation August 02, 2024 7:2 9am Squamous cell carcinoma of oropharynx [facility] 2024 7:29am Thrush, oral August 02, 2024 7:2 9am Chief Complaint Admit Date NEW-Mal Miguel base of tongue June 14, 2024 9:25am NEW tongue cancer June 14, 2024 1 0:28am Mal Miguel base of tongue June 20 11:48am Tongue Cancer June 22, 2024 2 :47pm Mal Miguel base of tongue July 05 11:00am . July 06, 2024 8:00am Mal Miguel base of tongue July 06 1:45pm Mal Miguel base of tongue July 10 3:17pm Tox check July 12, 2024 8:29am Mal Miguel base of tongue July 12 10:24am Mal Miguel base of tongue July 17, 2024 9 :00am tongue cancer July 17, 2024 10:0 5am . July 19, 2024 7:53 am Mal Miguel base of tongue July 19, 2024 9 :30am issues f/u prior to tx July 20, 2024 8 :23am Mal Miguel base of tongue July 24, 2024 9:00am Mal Miguel base of tongue July 26, 2024 12:00am Follow Up 2 Weeks July 26, 2024 8:1 3am . July 26, 2024 8:2 2am Mal Miguel base of tongue July 27, 2024 9:16am Mal Miguel base of tongue August 02, 2024 9:12am Mal Miguel base of tongue August 03, 2024 9:05am C10.9 August 03, 2024 10: 30am Mal Miguel base of tongue August 09, 2024 9:06am Follow Up 6 Weeks August 09, 2024 9:2 3am Reason for Visit Admit Date Squamous cell carcinoma of oropharynx [facility] 2024 8:13am Cancer associated pain July 26, 2024 8:22am Nausea July 26, 2024 8:2 2am Squamous cell carcinoma of oropharynx [facility] 2024 8:22am Cancer associated pain August 02, 2024 7:29am Constipation August 02, 2024 7:2 9am Squamous cell carcinoma of oropharynx [facility] 2024 7:29am Thrush, oral August 02, 2024 7:2 9am Cancer associated pain August 09, 2024 7:51am Constipation August 09, 2024 7:5 1am Nausea August 09, 2024 7:5 1am Squamous cell carcinoma of oropharynx [facility] 2024 7:51am Squamous cell carcinoma of oropharynx [facility] 2024 9:23am Chief Complaint Admit Date NEW-Mal Miguel base of tongue June 14, 2024 9:25am NEW tongue cancer June 14, 2024 1 0:28am Mal Miguel base of tongue June 20 11:48am Tongue Cancer June 22, 2024 2 :47pm Mal Miguel base of tongue July 05 11:00am . July 06, 2024 8:00am Mal Mgiuel base of tongue July 06 1:45pm Mal Miguel base of tongue July 10 3:17pm Tox check July 12, 2024 8:29am Mal Miguel base of tongue July 12 10:24am Mal Miguel base of tongue July 17, 2024 9 :00am tongue cancer July 17, 2024 10:0 5am . July 19, 2024 7:53 am Mal Miguel base of tongue July 19, 2024 9 :30am issues f/u prior to tx July 20, 2024 8 :23am Mal Miguel base of tongue July 24, 2024 9:00am Mal Miguel base of tongue July 26, 2024 12:00am Follow Up 2 Weeks July 26, 2024 8:1 3am . July 26, 2024 8:2 2am Mal Miguel base of tongue July 27, 2024 9:16am Mal Miguel base of tongue August 02, 2024 9:12am Mal Miguel base of tongue August 03, 2024 9:05am Mal Miguel base of tongue August 09, 2024 9:06am Follow Up 6 Weeks August 09, 2024 9:2 3am C10.9 August 10, 2024 10: 30am Mal Miguel base of tongue August 10, 2024 11:15am Mal Miguel base of tongue August 16, 2024 9 :29am Reason for Visit Admit Date Squamous cell carcinoma of oropharynx [facility] 2024 8:13am Cancer associated pain July 26, 2024 8:22am Nausea July 26, 2024 8:2 2am Squamous cell carcinoma of oropharynx [facility] 2024 8:22am Cancer associated pain August 02, 2024 7:29am Constipation August 02, 2024 7:2 9am Squamous cell carcinoma of oropharynx [facility] 2024 7:29am Thrush, oral August 02, 2024 7:2 9am Cancer associated pain August 09, 2024 7:51am Constipation August 09, 2024 7:5 1am Nausea August 09, 2024 7:5 1am Squamous cell carcinoma of oropharynx [facility] 2024 7:51am Squamous cell carcinoma of oropharynx [facility] 2024 9:23am Cancer associated pain August 16, 2024 7 :59am Constipation August 16, 2024 7:59 am Nausea August 16, 2024 7:59 am Squamous cell carcinoma of oropharynx [facility] 2024 7:59am Chief Complaint Admit Date NEW-Mal Miguel base of tongue June 14, 2024 9:25am NEW tongue cancer June 14, 2024 1 0:28am Mal Miguel base of tongue June 20 11:48am Tongue Cancer June 22, 2024 2 :47pm Mal Miguel base of tongue July 05 11:00am . July 06, 2024 8:00am Mal Miguel base of tongue July 06 1:45pm Mal Miguel base of tongue July 10 3:17pm Tox check July 12, 2024 8:29am Mal Miguel base of tongue July 12 10:24am Mal Miguel base of tongue July 17, 2024 9 :00am tongue cancer July 17, 2024 10:0 5am . July 19, 2024 7:53 am Mal Miguel base of tongue July 19, 2024 9 :30am issues f/u prior to tx July 20, 2024 8 :23am Mal Miguel base of tongue July 24, 2024 9:00am Mal Miguel base of tongue July 26, 2024 12:00am Follow Up 2 Weeks July 26, 2024 8:1 3am . July 26, 2024 8:2 2am Mal Miguel base of tongue July 27, 2024 9:16am Mal Miguel base of tongue August 02, 2024 9:12am Mal Miguel base of tongue August 03, 2024 9:05am Mal Miguel base of tongue August 09, 2024 9:06am Follow Up 6 Weeks August 09, 2024 9:2 3am Mal Miguel base of tongue August 10, 2024 11:15am C10.9 August 17, 2024 10:3 0am Mal Miguel base of tongue August 17, 2024 1 1:26am Mal Miguel base of tongue August 18, 2024 3 :32pm fever August 20, 2024 7:35 pm Reason for Visit Admit Date Squamous cell carcinoma of oropharynx [facility] 2024 8:13am Cancer associated pain July 26, 2024 8:22am Nausea July 26, 2024 8:2 2am Squamous cell carcinoma of oropharynx [facility] 2024 8:22am Cancer associated pain August 02, 2024 7:29am Constipation August 02, 2024 7:2 9am Squamous cell carcinoma of oropharynx [facility] 2024 7:29am Thrush, oral August 02, 2024 7:2 9am Cancer associated pain August 09, 2024 7:51am Constipation August 09, 2024 7:5 1am Nausea August 09, 2024 7:5 1am Squamous cell carcinoma of oropharynx [facility] 2024 7:51am Squamous cell carcinoma of oropharynx [facility] 2024 9:23am Cancer associated pain August 16, 2024 7 :59am Constipation August 16, 2024 7:59 am Nausea August 16, 2024 7:59 am Squamous cell carcinoma of oropharynx [facility] 2024 7:59am Fever August 20, 2024 7:35 pm Immunosuppression August 20, 2024 7:35 pm Pneumonia August 20, 2024 7:35 pm Chief Complaint Admit Date NEW-Mal Miguel base of tongue June 14, 2024 9:25am NEW tongue cancer June 14, 2024 1 0:28am Mal Miguel base of tongue June 20 11:48am Tongue Cancer June 22, 2024 2 :47pm Mal Miguel base of tongue July 05 11:00am . July 06, 2024 8:00am Mal Miguel base of tongue July 06 1:45pm Mal Miguel base of tongue July 10 3:17pm Tox check July 12, 2024 8:29am Mal Miguel base of tongue July 12 10:24am Mal Miguel base of tongue July 17, 2024 9 :00am tongue cancer July 17, 2024 10:0 5am . July 19, 2024 7:53 am Mal Miguel base of tongue July 19, 2024 9 :30am issues f/u prior to tx July 20, 2024 8 :23am Mal Miguel base of tongue July 24, 2024 9:00am Mal Miguel base of tongue July 26, 2024 12:00am Follow Up 2 Weeks July 26, 2024 8:1 3am . July 26, 2024 8:2 2am Mal Miguel base of tongue July 27, 2024 9:16am Mal Miguel base of tongue August 02, 2024 9:12am Mal Miguel base of tongue August 03, 2024 9:05am Mal Miguel base of tongue August 09, 2024 9:06am Follow Up 6 Weeks August 09, 2024 9:2 3am Mal Miguel base of tongue August 10, 2024 11:15am C10.9 August 17, 2024 10:3 0am Mal Miguel base of tongue August 17, 2024 1 1:26am Mal Miguel base of tongue August 18, 2024 3 :32pm fever August 20, 2024 7:35 pm fever August 21, 2024 10:5 3am Reason for Visit Admit Date Squamous cell carcinoma of oropharynx [facility] 2024 8:13am Cancer associated pain July 26, 2024 8:22am Nausea July 26, 2024 8:2 2am Squamous cell carcinoma of oropharynx [facility] 2024 8:22am Cancer associated pain August 02, 2024 7:29am Constipation August 02, 2024 7:2 9am Squamous cell carcinoma of oropharynx [facility] 2024 7:29am Thrush, oral August 02, 2024 7:2 9am Cancer associated pain August 09, 2024 7:51am Constipation August 09, 2024 7:5 1am Nausea August 09, 2024 7:5 1am Squamous cell carcinoma of oropharynx [facility] 2024 7:51am Squamous cell carcinoma of oropharynx [facility] 2024 9:23am Cancer associated pain August 16, 2024 7 :59am Constipation August 16, 2024 7:59 am Nausea August 16, 2024 7:59 am Squamous cell carcinoma of oropharynx [facility] 2024 7:59am Fever August 20, 2024 7:35 pm Immunosuppression August 20, 2024 7:35 pm Pneumonia August 20, 2024 7:35 pm Squamous cell carcinoma of oropharynx [facility] 2024 7:35pm Chief Complaint Admit Date Mal Miguel base of tongue June 20 11:48am Tongue Cancer June 22, 2024 2 :47pm Tongue Cancer July 03, 2024 2:00pm Mal Miguel base of tongue July 05 11:00am . July 06, 2024 8:00am Mal Miguel base of tongue July 06 1:45pm Mal Miguel base of tongue July 10 3:17pm Tox check July 12, 2024 8:29am Mal Miguel base of tongue February 26th, 20 25 10:24am Mal Miguel base of tongue July 17, 2024 9 :00am tongue cancer July 17, 2024 10:0 5am . July 19, 2024 7:53 am Mal Miguel base of tongue July 19, 2024 9 :30am issues f/u prior to tx July 20, 2024 8 :23am Mal Miguel base of tongue July 24, 2024 9:00am Mal Miguel base of tongue July 26, 2024 12:00am Follow Up 2 Weeks July 26, 2024 8:1 3am . July 26, 2024 8:2 2am Mal Miguel base of tongue July 31, 2024 9:16am Mal Miguel base of tongue August 02, 2024 9:12am Mal Miguel base of tongue August 07, 2024 9:05am Mal Miguel base of tongue August 09, 2024 9:06am Follow Up 6 Weeks August 09, 2024 9:2 3am Mal Miguel base of tongue August 14, 2024 11:15am Mal Miguel base of tongue August 15, 2024 1 2:00am C10.9 August 17, 2024 10:3 0am Mal Miguel base of tongue August 17, 2024 1 1:26am fever August 20, 2024 7:35 pm fever August 21, 2024 10:5 3am fever August 21, 2024 11:5 6am Follow Up 2 Weeks August 23, 2024 9:39 am Follow Up 1 Month, H+N September 07, 2024 9:14am Mal Miguel base of tongue September 07, 2024 9:36am isidro/annual visit September 11, 2024 9:5 5am Reason for Visit Admit Date Squamous cell carcinoma of oropharynx [facility] 2024 8:13am Cancer associated pain July 26, 2024 8:22am Nausea July 26, 2024 8:2 2am Squamous cell carcinoma of oropharynx [facility] 2024 8:22am Cancer associated pain August 02, 2024 7:29am Constipation August 02, 2024 7:2 9am Squamous cell carcinoma of oropharynx [facility] 2024 7:29am Thrush, oral August 02, 2024 7:2 9am Cancer associated pain August 09, 2024 7:51am Constipation August 09, 2024 7:5 1am Nausea August 09, 2024 7:5 1am Squamous cell carcinoma of oropharynx [facility] 2024 7:51am Squamous cell carcinoma of oropharynx [facility] 2024 9:23am Cancer associated pain August 16, 2024 7 :59am Constipation August 16, 2024 7:59 am Nausea August 16, 2024 7:59 am Squamous cell carcinoma of oropharynx [facility] 2024 7:59am Squamous cell carcinoma of oropharynx [facility] 2024 7:35pm Fever August 20, 2024 7:35 pm Immunosuppression August 20, 2024 7:35 pm Pneumonia August 20, 2024 7:35 pm Squamous cell carcinoma of oropharynx [facility] 2024 9:39am Tongue cancer September 07, 2024 9:1 4am CAD (coronary artery disease) August 9:55am Central sleep apnea September 11, 2024 9:5 5am DM (diabetes mellitus) September 11, 2024 9:55am Essential hypertension September 11, 2024 9:55am Obstructive sleep apnea September 11, 2024 9:55am Squamous cell carcinoma of oropharynx Ap ril 2024 9:55am Chief Complaint Admit Date Tongue Cancer June 22, 2024 2 :47pm Tongue Cancer July 03, 2024 2:00pm Mal Miguel base of tongue July 05 11:00am . July 06, 2024 8:00am Mal Miguel base of tongue July 06 1:45pm Mal Miguel base of tongue July 10 3:17pm Tox check July 12, 2024 8:29am Mal Miguel base of tongue July 12 10:24am Mal Miguel base of tongue July 17, 2024 9 :00am tongue cancer July 17, 2024 10:0 5am . July 19, 2024 7:53 am Mal Miguel base of tongue July 19, 2024 9 :30am issues f/u prior to tx July 20, 2024 8 :23am Mal Miguel base of tongue July 24, 2024 9:00am Mal Miguel base of tongue July 26, 2024 12:00am Follow Up 2 Weeks July 26, 2024 8:1 3am . July 26, 2024 8:2 2am Mal Miguel base of tongue July 31, 2024 9:16am Mal Miguel base of tongue August 02, 2024 9:12am Mal Miguel base of tongue August 07, 2024 9:05am Mal Miguel base of tongue August 09, 2024 9:06am Follow Up 6 Weeks August 09, 2024 9:2 3am Mal Miguel base of tongue August 14, 2024 11:15am Mal Miguel base of tongue August 15, 2024 1 2:00am C10.9 August 17, 2024 10:3 0am fever August 20, 2024 7:35 pm fever August 21, 2024 10:5 3am Mal Miguel base of tongue August 21, 2024 1 1:26am fever August 21, 2024 11:5 6am Follow Up 2 Weeks August 23, 2024 9:39 am Follow Up 1 Month, H+N September 07, 2024 9:14am Mal Miguel base of tongue September 07, 2024 9:36am isidro/annual visit September 11, 2024 9:5 5am no bowel movement x 7 days September 20, 2024 2:54pm Assessments No Assessments Information Available Reason for Referral Specialty Diagnoses / Procedures Referred By Contac t Referred To Contact Diagnoses Migraine without aura and without status migrainosus, not intractable (CMS/HCC) Missy Westfall PA [address] [place] [address] Referral ID Status Reason Start Date Expiration Date V isits Requested Visits Authorized [id number] Pending Review 02/16/2024 08/14/2024 1 1 Specialty Diagnoses / Procedures Referred By Contac t Referred To Contact MR IMAGING Diagnoses IPMN (intraductal papillary mucinous neoplasm) Procedures MRI 3D POST PROCESSING 3D RENDERING W/INTERP&POSTPROC [place] [address] [facility] [address] [place] [address] [place] [address] Referral ID Status Reason Start Date Expiration Date Visits Requested Visits Authorized [id number] New Request Auto-Generat ed Referral 02/01/2024 03/02/2025 1 1 Specialty Diagnoses / Procedures Referred By Contac t Referred To Contact MR IMAGING Diagnoses IPMN (intraductal papillary mucinous neoplasm) Procedures MRI PANC/TRISH WO/W IVCON MRI ABDOMEN W/O & W/[place] [address] [facility] [address] [place] [address] [place] [address] Referral ID Status Reason Start Date Expiration Date Visits Requested Visits Authorized [id number] New Request Auto-Generat ed Referral 02/01/2024 03/02/2025 [...] section and content) DATE CREATED AUTHOR 02/08/2020 [facility] DATE CREATED AUTHOR AUTHOR'S ORGANIZ ATION 09/30/2022 [facility] DATE CREATED AUTHOR AUTHOR'S ORGANIZ ATION 02/04/2023 [facility] DATE CREATED AUTHOR AUTHOR'S ORGANIZ ATION 04/01/2024 [facility] DATE CREATED AUTHOR AUTHOR'S ORGANIZ ATION 04/19/2024 [place] [facility] DATE CREATED AUTHOR AUTHOR'S ORGANIZ ATION 07/05/2024 [facility] DATE CREATED AUTHOR AUTHOR'S ORGANIZ ATION 07/21/2024 [facility] DATE CREATED AUTHOR AUTHOR'S ORGANIZ ATION 07/22/2024 [facility] DATE CREATED AUTHOR AUTHOR'S ORGANIZ ATION 08/25/[address] [facility] DATE CREATED AUTHOR AUTHOR'S ORGANIZ ATION 09/03/2024 [facility] DATE CREATED AUTHOR AUTHOR'S ORGANIZ ATION 09/08/2024 [facility] DATE CREATED AUTHOR AUTHOR'S ORGANIZ ATION 09/25/2024 [facility] DATE CREATED AUTHOR AUTHOR'S ORGANIZ ATION 09/27/2024 [facility] DATE CREATED AUTHOR AUTHOR'S ORGANIZ ATION 09/27/2024 [facility] DATE CREATED AUTHOR AUTHOR'S ORGANIZ ATION 09/28/2024 [facility] DATE CREATED AUTHOR AUTHOR'S ORGANIZ ATION 09/29/2024 [facility] Cohn [facility] REASON FOR VISIT (unrecogniz ed section and content) Reason Comments Consult [facility] Reason Comments Received Outside Medical Records Reason Comments Back Pain Dizziness Neck Pain Reason Comments Parotid mass Parotid mass Reason Comments MRI Appointment [employer] - Other Reason Comments Parotid Mass Follow up [facility] Reason Comments Radiology [place] Reason Comments Mouth Lesions Follow up [facility] 03/27/24 Reason Comments New Patient Visit Oral cancer. Reason Comments Neck Mass Ultrasound 01/20/24. L ump right side of neck below ear. Onset about 6 wk ago Reason Comments Post-op Head and neck Reason Comments Consult Port - Ref Dr Tony cancerHaving pacemaker generator change on 07-10-24 w/ [place] [facility] Dr Patel. Specialty Diagnoses / Procedures Referred By Contac t Referred To Contact General Surgery Diagnoses Malignant neoplasm of oropharynx, unspecified (CMS/HCC) Procedures [facility] [employer] Dennis Gray MD [address] [place] [address] Phone: tel: fax: Stacey Hinojosa DO [address] [place] [address] Phone: tel: fax: Referral ID Status Reason Start Date Expiration Date Visits Re quested Visits Authorized [id number] Closed 06/14/2024 12/11/2024 1 1 Reason Comments Follow-up Reason Comments urgent need for gastrostomy tube Patient Care team informatio n (unrecognized section and content) Team Status: Active Member Role Status Dates Demetrius Cooper MD Primary Care Provider Active Team Status: Inactive Member Role Status Dates Demetrius Cooper MD Primary Care Provider Active Start: June 22, 2024 End: June 22, 2024 Matteo Melo MD Attending Provider Active Sta rt: June 22, 2024 End: June 22, 2024 Team Status: Inactive Member Role Status Dates Demetrius Cooper MD Primary Care Provider Active Start: July 03, 2024 End: July 03, 2024 Matteo Melo MD Attending Provider Active Sta rt: July 03, 2024 End: July 03, 2024 Team Status: Active Member Role Status Tati Cooper MD Primary Care Provider Active Start: July 05, 2024 Mary Ly MD Referring Provider Active S tart: July 05, 2024 Dennis Gray MD Attending [facility] er, Other Provider Active Start: July 05, 2024 Team Status: Inactive Member Role Status Dates Demetrius Cooper MD Primary Care Provider Active Start: July 06, 2024 End: July 06, 2024 Debora Wild APRN Attending Provider Active Start: July 06, 2024 End: July 06, 2024 Team Status: Active Member Role Status Tati Cooper MD Primary Care Provider Active Start: July 06, 2024 Debora Wild APRN Attending Prov ider, Other Provider Active Start: July 06, 2024 Team Status: Active Member Role Status Tati Cooper MD Primary Care Provider Active Start: July 06, 2024 Mary Ly MD Referring Provider Active S tart: July 06, 2024 Dennis Gray MD Other Provider Active St art: July 06, 2024 Maribeth Hull MD Attending Provider Active Start: July 06, 2024 Team Status: Active Member Role Status Dates Demetrius Cooper MD Primary Care Provider Active Start: July 10, 2024 Mary Ly MD Referring Provider Active S tart: July 10, 2024 Dennis Gray MD Attending [facility] er, Other Provider Active Start: July 10, 2024 Team Status: Inactive Member Role Status Dates Demetrius Cooper MD Primary Care Provider Active Start: July 12, 2024 End: July 12, 2024 Debora Wild APRN Attending Provider Active Start: July 12, 2024 End: July 12, 2024 Team Status: Active Member Role Status Tati Cooper MD Primary Care Provider Active Start: July 12, 2024 Debora Wild APRN Attending Prov ider, Other Provider Active Start: July 12, 2024 Team Status: Inactive Member Role Status Dates Demetrius Cooper MD Primary Care Provider Active Start: July 12, 2024 End: July 12, 2024 Talib Faustin MD Attending Provider Active Start: July 12, 2024 End: July 12, 2024 Team Status: Active Member Role Status Dates Demetrius Cooper MD Primary Care Provider Active Start: July 12, 2024 Mary Ly MD Referring Provider Active S tart: July 12, 2024 Dennis Gray MD Other Provider Active St art: July 12, 2024 Maribeth Hull MD Attending Provider Active Start: July 12, 2024 Team Status: Active Member Role Status Dates Demetrius Cooper MD Primary Care Provider Active Start: July 17, 2024 Mary Ly MD Referring Provider Active S tart: July 17, 2024 Dennis Gray MD Attending Provider Active Start: July 17, 2024 Talib Faustin MD Other Provider Active Start: July 17, 2024 Team Status: Inactive Member Role Status Dates Demetrius Cooper MD Primary Care Provider Active Start: July 17, 2024 End: July 17, 2024 Matteo Melo MD Attending Provider Active Sta rt: July 17, 2024 End: July 17, 2024 Team Status: Inactive Member Role Status Dates Demetrius Cooper MD Primary Care Provider Active Start: July 19, 2024 End: July 19, 2024 Debora Wild APRN Attending Provider Active Start: July 19, 2024 End: July 19, 2024 Team Status: Active Member Role Status Dates Demetrius Cooper MD Primary Care Provider Active Start: July 19, 2024 Debora Wild APRN Attending Prov ider, Other Provider Active Start: July 19, 2024 Team Status: Active Member Role Status Dates Demetrius Cooper MD Primary Care Provider Active Start: July 19, 2024 Mary Ly MD Referring Provider Active S tart: July 19, 2024 Dennis Gray MD Active Star t: July 19, 2024 Talib Faustin MD Other Provider Active Start: July 19, 2024 Maribeth Hull MD Attending Provider Active Start: July 19, 2024 Team Status: Inactive Member Role Status Dates Demetrius Cooper MD Primary Care Provider Active Start: July 20, 2024 End: July 20, 2024 Talib Faustin MD Attending Provider Active Start: July 20, 2024 End: July 20, 2024 Team Status: Active Member Role Status Dates Demetrius Cooper MD Primary Care Provider Active Start: July 24, 2024 Mary Ly MD Referring Provider Active S tart: July 24, 2024 Dennis Gray MD Active Star t: July 24, 2024 Talib Faustin MD Other Provider Active Start: July 24, 2024 Luisana Johns MD Attending Provider Active Start: July 24, 2024 Team Status: Active Member Role Status Dates Demetrius Cooper MD Primary Care Provider Active Start: July 26, 2024 Mary Ly MD Referring Provider Active S tart: July 26, 2024 Dennis Gray MD Active Star t: July 26, 2024 Talib Faustin MD Other Provider Active Start: July 26, 2024 Maribeth Hull MD Attending Provider Active Start: July 26, 2024 Team Status: Inactive Member Role Status Dates Demetrius Cooper MD Primary Care Provider Active Start: July 26, 2024 End: July 26, 2024 Talib Faustin MD Attending Provider Active Start: July 26, 2024 End: July 26, 2024 Team Status: Inactive Member Role Status Dates Demetrius Cooper MD Primary Care Provider Active Start: July 26, 2024 End: July 26, 2024 Maru Ma DO Attending Provider Active Start: July 26, 2024 End: July 26, 2024 Team Status: Active Member Role Status Dates Demetrius Cooper MD Primary Care Provider Active Start: July 26, 2024 Maru Ma DO Attending Provide r, Other Provider Active Start: July 26, 2024 Team Status: Active Member Role Status Dates Demetrius Cooper MD Primary Care Provider Active Start: July 31, 2024 Mary Ly MD Referring Provider Active S tart: July 31, 2024 Dennis Gray MD Attending Provider Active Start: July 31, 2024 Talib Faustin MD Other Provider Active Start: July 31, 2024 Luisana Johns MD Active Start : July 31, 2024 Team Status: Inactive Member Role Status Dates Demetrius Cooper MD Primary Care Provider Active Start: August 02, 2024 End: August 02, 2024 Pepito Galicia DO FELLOW Attending Provider Active Start: August 02, 2024 End: August 02, 2024 Team Status: Active Member Role Status Dates Demetrius Cooper MD Primary Care Provider Active Start: August 02, 2024 Mary Ly MD Referring Provider Active S tart: August 02, 2024 Dennis Gray MD Other Provider Active St art: August 02, 2024 Talib Faustin MD Active St art: August 02, 2024 Maribeth Hull MD Attending Provider Active Start: August 02, 2024 Team Status: Active Member Role Status Dates Demetrius Cooper MD Primary Care Provider Active Start: August 07, 2024 Mary Ly MD Referring Provider Active S tart: August 07, 2024 Dennis Gray MD Attending Provider Active Start: August 07, 2024 Talib Faustin MD Other Provider Active Start: August 07, 2024 Team Status: Inactive Member Role Status Dates Demetrius Cooper MD Primary Care Provider Active Start: August 09, 2024 End: August 09, 2024 Debora Wild APRN Attending Provider Active Start: August 09, 2024 End: August 09, 2024 Team Status: Active Member Role Status Dates Demetrius Cooper MD Primary Care Provider Active Start: August 09, 2024 Mary Ly MD Referring Provider Active S tart: August 09, 2024 Dennis Gray MD Other Provider Active St art: August 09, 2024 Talib Faustin MD Active St art: August 09, 2024 Maribeth Hull MD Attending Provider Active Start: August 09, 2024 Team Status: Inactive Member Role Status Dates Demetrius Cooper MD Primary Care Provider Active Start: August 09, 2024 End: August 09, 2024 Talib Faustin MD Attending Provider Active Start: August 09, 2024 End: August 09, 2024 Team Status: Active Member Role Status Dates Demetrius Cooper MD Primary Care Provider Active Start: August 09, 2024 Debora Wild APRN Attending Prov ider, Other Provider Active Start: August 09, 2024 Team Status: Active Member Role Status Dates Demetrius Cooper MD Primary Care Provider Active Start: August 14, 2024 Mary Ly MD Referring Provider Active S tart: August 14, 2024 Dennis Gray MD Attending Provider Active Start: August 14, 2024 Talib Faustin MD Other Provider Active Start: August 14, 2024 Team Status: Active Member Role Status Dates Demetrius Cooper MD Primary Care Provider Active Start: August 15, 2024 Mary Ly MD Referring Provider Active S tart: August 15, 2024 Dennis Gray MD Active Star t: August 15, 2024 Talib Faustin MD Other Provider Active Start: August 15, 2024 Maribeth Hull MD Attending Provider Active Start: August 15, 2024 Team Status: Inactive Member Role Status Dates Demetrius Cooper MD Primary Care Provider Active Start: August 16, 2024 End: August 16, 2024 Debora Wild APRN Attending Provider Active Start: August 16, 2024 End: August 16, 2024 Team Status: Active Member Role Status Dates Demetrius Cooper MD Primary Care Provider Active Start: August 16, 2024 Debora Wild APRN Attending Prov ider, Other Provider Active Start: August 16, 2024 Team Status: Active Member Role Status Dates Dennis Gray MD Attending Provider Active Start: August 17, 2024 Demetrius Cooper MD Primary Care Provider Active Start: August 17, 2024 Team Status: Inactive Member Role Status Dates Demetrius Cooper MD Primary Care Provider Active Start: August 20, 2024 End: August 21, 2024 Louie Marrero DO Emergency Provider Active Sta rt: August 20, 2024 End: August 21, 2024 Jaiden Nance MD Admit Provider Active Start: Lyssa dumas 2024 End: August 21, 2024 Yash Thomas MD Other Provider Active Start: August 20, 2024 End: August 21, 2024 Zeke Brennan MD Attending Provider Active St art: August 20, 2024 End: August 21, 2024 Team Status: Active Member Role Status Dates Demetrius Cooper MD Primary Care Provider Active Start: August 21, 2024 Louie Marrero DO Emergency Provider Active Sta rt: August 21, 2024 Jaiden Nance MD Admit Provider Active Start: A prilisette 2024 Yash Thomas MD Attending Provider, Other Provider Active Start: August 21, 2024 Zeke Brennan MD Other Provider Active Start: August 21, 2024 Team Status: Active Member Role Status Dates Demetrius Cooper MD Primary Care Provider Active Start: August 21, 2024 Mary Ly MD Referring Provider Active S tart: August 21, 2024 Dennis Gray MD Active Star t: August 21, 2024 Talib Faustin MD Other Provider Active Start: August 21, 2024 Luisana Johns MD Attending Provider Active Start: August 21, 2024 Team Status: Active Member Role Status Dates Demetrius Cooper MD Primary Care Provider Active Start: August 21, 2024 Louie Marrero DO Emergency Provider Active Sta rt: August 21, 2024 Jaiden Nance MD Admit Provider Active Start: A pril 2024 Yash Thomas MD Other Provider Active Start: August 21, 2024 Zeek Brennan MD Other Provider Active Start: August 21, 2024 Luisana Johns MD Attending Provider Active Start: August 21, 2024 Team Status: Inactive Member Role Status Dates Demetrius Cooper MD Primary Care Provider Active Start: August 23, 2024 End: August 23, 2024 Talib Faustin MD Attending Provider Active Start: August 23, 2024 End: August 23, 2024 Team Status: Inactive Member Role Status Dates Demetrius Cooper MD Primary Care Provider Active Start: September 07, 2024 End: September 07, 2024 Becky Crouch APRN Attending Provider Acti ve Start: September 07, 2024 End: September 07, 2024 Team Status: Active Member Role Status Dates Demetrius Cooper MD Primary Care Provider Active Start: September 07, 2024 Mary Ly MD Referring Provider Active S tart: September 07, 2024 Dennis Gray MD Active Star t: September 07, 2024 Talib Faustin MD Attending Provider Active Start: September 07, 2024 Team Status: Inactive Member Role Status Dates Demetrius Cooper MD Primary Care Provider Active Start: September 11, 2024 End: September 11, 2024 Gisele Brunson NP Attending Provider Active Start: September 11, 2024 End: September 11, 2024 Team Status: Inactive Member Role Status Dates Demetrius Cooper MD Primary Care Provider Active Start: September 20, 2024 End: September 20, 2024 Maru Hayes MD Emergency Provider Active Start: September 20, 2024 End: September 20, 2024 Team Status: Active Member Role Status Dates Demetrius Cooper MD Primary Care Provider Active Start: June 20, 2024 Mary Ly MD Referring Provider Active S tart: June 20, 2024 Dennis Gray MD Other Provider Active St art: June 20, 2024 Luisana Johns MD Attending Provider Active Start: June 20, 2024 Team Status: Active Member Role Status Dates Demetrius Cooper MD Primary Care Provider Active Start: August 17, 2024 Mary Ly MD Referring Provider Active S tart: August 17, 2024 Dennis Gray MD Attending Provider Active Start: August 17, 2024 Talib Faustin MD Other Provider Active Start: August 17, 2024 Team Status: Active Member Role Status Dates [...] Alanna Hardy DPM MS Attending Provider Active iMssy Westfall PA-C Other Provider Active Team Status: Inactive Member Role Status Dates Gisele Brunson NP Attending Provider Active Demetrius Cooper MD Primary Care Provider Active Team Status: Inactive Member Role Status Dates Demetrius Cooper MD Primary Care Provider Active Erwin Salazar MD Attending Provider Active Team Status: Inactive Member Role Status Dates Demetrius Cooper MD Primary Care Provider Active Inez Henderson MD Attending Provider Active Team Status: Inactive Member Role Status Dates Demetrius Cooper MD Primary Care Provider Active Gisele Brunson NP Attending Provider Active Team Status: Inactive Member Role Status Dates Demetrius Cooper MD Primary Care Provider Active Anjali Ruby NP-C Attending Provider Active It Compliance Analyst Relationship Specialty Start Date End Date Flori AnjaliGREG jung [address] [place] [address] Referring Family Medicine 03/03/23 It Compliance Analyst Relationship Specialty Start Date End Date Anjali Ruby CNP [address] [place] [address] Referring Family Medicine 03/03/23 Team Status: Inactive Member Role Status Dates Demetrius Cooper MD Primary Care Provider Active Start: July 27, 2023 End: July 27, 2023 Keisha Miller APRN Attending Provider Active Start: July 27, 2023 End: July 27, 2023 Team Status: Inactive Member Role Status Dates Demetrius Cooper MD Primary Care Provider Active Start: September 02, 2023 End: September 02, 2023 Gisele Brunson NP Attending Provider Active Start: September 02, 2023 End: September 02, 2023 It Compliance Analyst Relationship Specialty Start Date End Date Flori, AnjaliGREG jung [address] [place] [address] Referring Family Medicine 03/03/23 It Compliance Analyst Relationship Specialty Start Date End Date Demetrius Cooper MD [address] [place] [address] PCP - General Family Medicine 01/26/24 Clarissa Corado MD [address] [place] [address] Referring Physician Neurology 08/03/23 It Compliance Analyst Relationship Specialty Start Date End Date Demetrius Cooper MD [address] [place] [phone] PCP - General Family Medicine 01/26/24 Clarissa Corado MD [address] [place] [address] Referring Physician Neurology 08/03/23 It Compliance Analyst Relationship Specialty Start Date End Date Demetrius Cooper MD [address] [place] [phone] PCP - General Family Medicine 01/26/24 Clarissa Corado MD [address] [place] [address] Referring Physician Neurology 08/03/23 It Compliance Analyst Relationship Specialty Start Date End Date Anjali Ruby CNP [address] [place], [place] [address] [address] Referring Family Medicine 03/03/23 Team Status: Inactive Member Role Status Dates Demetrius Cooper MD Primary Care Provider Active Start: February 29, 2024 End: February 29, 2024 Luc Ham Jr, MD Attending Provider Active Start: February 29, 2024 End: February 29, 2024 It Compliance Analyst Relationship Specialty Start Date End Date Demetrius Cooper MD [address] [place] [phone] PCP - General Family Medicine 01/26/24 Clarissa Corado MD [address] [place] [address] Referring Physician Neurology 08/03/23 It Compliance Analyst Relationship Specialty Start Date End Date Demetrius Cooper MD [address] [place] [phone] PCP - General Family Medicine 01/26/24 Clarissa Corado MD [address] [place] [address] Referring Physician Neurology 08/03/23 It Compliance Analyst Relationship Specialty Start Date End Date Demetrius Cooper MD [address] [place] [phone] PCP - General Family Medicine 01/26/24 Clarissa Corado MD [address] [place] [address] Referring Physician Neurology 08/03/23 It Compliance Analyst Relationship Specialty Start Date End Date Demetrius Cooper MD [address] [place] [address] PCP - General Family Medicine 03/27/24 Anjali Ruby [employer] [address] [place] [address] Referring Family Medicine 03/03/23 Luc Ham MD [address] [id number] Ent - Otolaryngology 03/10/24 It Compliance Analyst Relationship Specialty Start Date End Date Demetrius Cooper MD [address] [place] [phone] PCP - General Family Medicine 01/26/24 Clarissa Corado MD [address] [place] [address] Referring Physician Neurology 08/03/23 It Compliance Analyst Relationship Specialty Start Date End Date Demetrius Cooper MD [address] [facility] [place] [address] PCP - General Family Medicine 04/11/24 It Compliance Analyst Relationship Specialty Start [place] [address] [place] [address] [place] [address] PCP - General Family Medicine 04/11/24 It Compliance Analyst Relationship Specialty Start Date End Date Demetrius Cooper MD [address] [facility] [place] [address] PCP - General Family Medicine 04/11/24 It Compliance Analyst Relationship Specialty Start Date End Date Demetrius Cooper MD [address] [place] [address] [place] [address] PCP - General Family Medicine 04/11/24 Team Status: Inactive Member Role Status Dates Demetrius Cooper MD Primary Care Provider Active Start: June 14, 2024 End: June 14, 2024 Talib Faustin MD Attending Provider Active Start: June 14, 2024 End: June 14, 2024 Mary Ly MD Referring Provider Active S tart: June 14, 2024 End: June 14, 2024 Team Status: Active Member Role Status Dates Demetrius Cooper MD Primary Care Provider Active Start: June 14, 2024 Talib Faustin MD Attending Provider Active Start: June 14, 2024 Mary Ly MD Referring Provider Active S tart: June 14, 2024 Team Status: Inactive Member Role Status Dates Demetrius Cooper MD Primary Care Provider Active Start: June 14, 2024 End: June 14, 2024 Dennis Gray MD Attending Provider Active Start: June 14, 2024 End: June 14, 2024 Mary Ly MD Referring Provider Active S tart: June 14, 2024 End: June 14, 2024 It Compliance Analyst Relationship Specialty Start Date End Date Demetrius Cooper MD [address] [place] [address] PCP - [facility] 01/26/24 Clarissa Corado MD [address] [place] [address] Referring Physician Neurology 08/03/23 Team Status: Active Member Role Status Dates Demetrius Cooper MD Primary Care Provider Active Start: June 20, 2024 Mary Ly MD Referring Provider Active S tart: June 20, 2024 Dennis Gray MD Attending Provider Active Start: June 20, 2024 It Compliance Analyst Relationship Specialty Start Date End Date Demetrius Cooper MD [address] [place] [address] PCP - [facility] Medicine 01/26/24 Clarissa Corado MD [address] [place] [address] Referring Physician Neurology 08/03/23 Team Status: Active Member Role Status Dates Demetrius Cooper MD Primary Care Provider Active Start: July 06, 2024 Mary Ly MD Referring Provider Active S tart: July 06, 2024 Dennis Gray MD Attending Provid er, Other Provider Active Start: July 06, 2024 Team Status: Active Member Role Status Dates Demetrius Cooper MD Primary Care Provider Active Start: July 12, 2024 Debora Wild APRN Attending Provider Active Start: July 12, 2024 Team Status: Active Member Role Status Dates Demetrius Cooper MD Primary Care Provider Active Start: July 12, 2024 Mary Ly MD Referring Provider Active S tart: July 12, 2024 Dennis Gray MD Attending Provider Active Start: July 12, 2024 Talib Faustin MD Active St art: July 12, 2024 Team Status: Active Member Role Status Dates Demetrius Cooper MD Primary Care Provider Active Start: July 13, 2024 Mary Ly MD Referring Provider Active S tart: July 13, 2024 Dennis Gray MD Attending Provider Active Start: July 13, 2024 Talib Faustin MD Other Provider Active Start: July 13, 2024 Team Status: Active Member Role Status Dates Demetrius Cooper MD Primary Care Provider Active Start: July 17, 2024 Mary Ly MD Referring Provider Active S tart: July 17, 2024 Dennis Gray MD Active Star t: July 17, 2024 Talib Faustin MD Attending Provider Active Start: July 17, 2024 Team Status: Active Member Role Status Dates Demetrius Cooper MD Primary Care Provider Active Start: July 20, 2024 Mary Ly MD Referring Provider Active S tart: July 20, 2024 Dennis Gray MD Attending Provider Active Start: July 20, 2024 Talib Faustin MD Other Provider Active Start: July 20, 2024 Team Status: Active Member Role Status Dates Dennis Gray MD Attending Provider Active Start: July 20, 2024 Demetrius Cooper MD Primary Care Provider Active Start: July 20, 2024 Team Status: Active Member Role Status Dates Demetrius Cooper MD Primary Care Provider Active Start: July 26, 2024 Mary Ly MD Referring Provider Active S tart: July 26, 2024 Dennis Gray MD Active Star t: July 26, 2024 Talib Faustin MD Attending Provider Active Start: July 26, 2024 Team Status: Active Member Role Status Dates Demetrius Cooper MD Primary Care Provider Active Start: July 27, 2024 Mary Ly MD Referring Provider Active S tart: July 27, 2024 Dennis Gray MD Active Star t: July 27, 2024 Talib Faustin MD Other Provider Active Start: July 27, 2024 Luisana Johns MD Attending Provider Active Start: July 27, 2024 Team Status: Active Member Role Status Dates Dennis Gary MD Attending Provider Active Start: July 27, 2024 Demetrius Cooper MD Primary Care Provider Active Start: July 27, 2024 Team Status: Active Member Role Status Dates Demetrius Cooper MD Primary Care Provider Active Start: July 24, 2024 Mary Ly MD Referring Provider Active S tart: July 24, 2024 Dennis Gray MD Attending Provider Active Start: July 24, 2024 Talib Faustin MD Other Provider Active Start: July 24, 2024 Team Status: Active Member Role Status Dates Demetrius Cooper MD Primary Care Provider Active Start: August 03, 2024 Mary Ly MD Referring Provider Active S tart: August 03, 2024 Dennis Gray MD Attending Provider Active Start: August 03, 2024 Talib Faustin MD Other Provider Active Start: August 03, 2024 Team Status: Active Member Role Status Dates Dennis Gray MD Attending Provider Active Start: August 03, 2024 Demetrius Cooper MD Primary Care Provider Active Start: August 03, 2024 Team Status: Active Member Role Status Dates Dennis Gray MD Attending Provider Active Start: August 10, 2024 Demetrius Cooper MD Primary Care Provider Active Start: August 10, 2024 Team Status: Active Member Role Status Dates Demetrius Cooper MD Primary Care Provider Active Start: August 10, 2024 Mary Ly MD Referring Provider Active S tart: August 10, 2024 Dennis Gray MD Attending Provider Active Start: August 10, 2024 Talib Faustin MD Other Provider Active Start: August 10, 2024 Team Status: Active Member Role Status Dates Demetrius Cooper MD Primary Care Provider Active Start: August 16, 2024 Mary Ly MD Referring Provider Active S tart: August 16, 2024 Dennis Gray MD Attending Provider Active Start: August 16, 2024 Talib Faustin MD Active St art: August 16, 2024 Team Status: Active Member Role Status Dates Demetrius Cooper MD Primary Care Provider Active Start: August 18, 2024 Mary Ly MD Referring Provider Active S tart: August 18, 2024 Dennis Gray MD Active Star t: August 18, 2024 Talib Faustin MD Attending Provider Active Start: August 18, 2024 Team Status: Active Member Role Status Dates Demetrius Cooper MD Primary Care Provider Active Start: August 20, 2024 Louie Marrero DO Emergency Provider Active Sta rt: August 20, 2024 Jaiden Nance MD Admit Provider, Attending Provider A ctive Start: August 20, 2024 It Compliance Analyst Relationship Specialty Start Date End Date Demetrius Cooper MD [address] [facility] [place] [address] PCP - General Family Medicine 04/11/24 It Compliance Analyst Relationship Specialty Start Date End Date Demetrius Cooper MD [address] [place] [address] PCP - General Family Medicine 01/26/24 Clarissa Corado MD Referring Physician Neurology 08/03/23 It Compliance Analyst Relationship Specialty Start Date End Date Demetrius Cooper MD [address] [place] [address] PCP - General Family Medicine 01/26/24 Clarissa Corado MD Referring Physician Neurology 08/03/23 Goals (unrecognized section [...] any alcohol or drug abuse patient.[facility] the event this information is protected by the Federal Confidentiality of Alcohol and Drug Abuse Patient Records regulations: The Federal rules restrict any use of the information to criminally investigate or prosecute any alcohol or drug abuse patient.[facility] the event this information is protected by the Federal Confidentiality of Alcohol and Drug Abuse Patient Records regulations: The Federal rules restrict any use of the information to criminally investigate or prosecute any alcohol or drug abuse patient.[facility] the event this information is protected by the Federal Confidentiality of Alcohol and Drug Abuse Patient Records regulations: The Federal rules restrict any use of the information to criminally investigate or prosecute any alcohol or drug abuse patient.[facility] HospitalIn the event this information is protected by the Federal Confidentiality of Alcohol and Drug Abuse Patient Records regulations: The Federal rules restrict any use of the information to criminally investigate or prosecute any alcohol or drug abuse patient.[facility] PRN Active and Recently Administ ered Medications (unrecognized section and content) Medication Order 05/09/2024 05/10/2024 05/11/2024 oxymetazoline (Afrin) 0.05 % nasal spray (CANCELED) As needed, Starting on Shira 05/11/24 at 0750, Intraprocedure 0750 (Given - Provid er: Mary Ly MD) sodium chloride 0.9 % irrigation solution (CANCELED) As needed, Starting on Shira 05/11/24 at 0750, Intraprocedure 0750 (Given - Provid er: Mary Ly MD) sterile water irrigation solution (CANCELED) As needed, Starting on Shira 05/11/24 at 0750, Intraprocedure 0750 (Given - Provid er: Mary Ly MD - Comment: FOR SCOPE) FOR RECORDS PERTAINING TO PATIENTS WHO ARE [...] BE BASED ON THE PRIMARY CLINICAL RECORDS. [facility]. provides no warranty or guarantee of the accuracy or completeness of information in this document.
[2024-09-29 23:15] VITALS: O2SAT 95
--- NOTE | 2024-09-29 23:17 | ECG_ITS ---
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 Measurements Intervals [place] Rate: 59 P: -60 CO: 282 QRS: -71 QRSD: 118 T: 16 QT: 440 QTc: 440 Interpretive Statements Atrial paced rhythm with prolonged AV conduction 2231 First degree AV block 2440 Incomplete right bundle branch block 3114 Cannot rule out anterior myocardial infarction, age undetermined 7200 Abnormal left axis deviation 8102 Low QRS voltage in chest leads 9150 abnormal ECG Compared to ECG 09/29/2022 15:54:02 Low QRS voltage now present Electronically Signed On 09-30-2024 7:49:14 EDT by JOHN RAMIRES M.D.
== END 2024-09-30 01:05 | disposition home or self-care (01) ==
PROVIDERS: Emergency Provider Internal Medicine; PCP Family Medicine
DX: R05.9 Cough, unspecified (principal); C06.9 Malignant neoplasm of mouth, unspecified; Z79.60 Long term (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 of unspecified immunomodulators and immunosuppressants; Z90.49 Acquired absence of other specified parts of digestive tract; Z95.0 Presence of cardiac pacemaker; Z98.52 Vasectomy status; Z90.79 Acquired absence of other genital organ(s); B37.0 Candidal stomatitis
CPT/HCPCS: 70486; 71046; 93005; 99285

== ENCOUNTER 2024-11-23 13:29 | Outpatient (OUT) | payer MEDICARE, SELFPAY ==
--- OUTSIDE RECORDS SUMMARY | 2024-01-31 09:00 | XMS_ITS ---
Author Organization [facility] in [place] Address [address] [place] [address] Care Team Providers Care Ultrasonic Solderer Name Role Phone Mg Jack MD Primary Care Provider Unavailab jeyson Susana Momin Unavailable [phone] Allergies Allergen (clinical drug ingredient) Drug/Non Drug Allergy documented on EMR Reaction Allergy Type Onset Date Status Niaspan Unknown Drug Allergy Active Adhesive Unknown Allergy Active REASON FOR VISIT nail care Medications Medication SIG (Take, Route, Frequency, Duration) Notes Start Date End Date Status One Touch Ultra Test Strips - Active One Touch Ultra Test Strips - Active Omeprazole 40 MG 1 capsule 30 minutes before morning meal Orally Once a day for 30 day(s) Active Prazosin HCl 5 MG 1 capsule at bedtime Orally Once a day for 30 day(s) Active Plavix 75 MG 1 tablet Orally Once a day for 30 day(s) Active Multivitamin Adult - 1 tablet Orally Onc e a day for 30 day(s) Active Latanoprost 0.005 % 1 drop into affected eye in the evening Ophthalmic Once a day Active [place]-3 Krill Oil 500 MG as directed Orally Active Loperamide HCl 2 MG 1 capsule as needed Orally Four times a day Active metFORMIN HCl ER 500 MG 1 tablet with ev ening meal Orally Once a day for 30 day(s) Active Gabapentin 600 MG 1 tablet Orally Once a day for 30 day(s) Active Furosemide 20 MG 1 tablet Orally Once a day for 30 day(s) Active Lancets Ultra Thin - as directed Active Isosorbide Mononitrate ER 30 MG 1 tablet in the morning Orally Once a day for 30 day(s) Active Irbesartan 300 MG 1 tablet Orally Once a day for 30 day(s) Active Fluticasone Propionate 50 MCG/ACT 1 spray in each nostril Nasally Once a day for 30 day(s) Active Dorzolamide HCl 2 % 1 drop into affected eye Ophthalmic Three times a day Active Crestor 10 MG 1 tablet Orally Once a day for 30 day(s) Active Colace 100 MG 1 capsule as needed Orally Once a day for 30 day(s) Active Carafate 1 GM 1 tablet on an empty stomach Orally Twice a day for 30 day(s) Active Uigeqvluob-IRYD-Hpshgxjl 50-325-40 MG 1 capsule as needed Orally every 4 hrs Active Aspirin 81 MG 1 tablet Orally Once a day for 30 day(s) Active amLODIPine Besylate 5 MG 1 tablet Orally Once a day for 30 day(s) Active traZODone HCl 50 MG 1 tablet at bedtime as needed Orally Once a day for 30 day(s) Active Tylenol PM Extra Strength 500-25 MG 1 tablet at bedtime as needed Orally Once a day for 30 day(s) Active tiZANidine HCl 4 MG 1 tablet as needed O rally Three times a day Active Sotalol HCl 80 MG 1 tablet Orally ever y 12 hrs for 30 day(s) Active Social History Tobacco Use: Social History Observation Description Date Details (start date - stop date) Former Smoker NA - NA Tobacco Use/Smoking Question Answer Notes Patient is a former smoker How long has it been since you last smoked? > 10 years Section Notes: Quit 35 years ago Problems Problem Type SNOMED Code ICD Code Onset Dates Problem Status W/U Status Risk Notes Problem [id number] Pain in left toe(s) (M79.675) Active confirmed Problem [id number] Pain in right toe(s) (M79.674) Active confirmed Vital Signs Temperature 97.5 degrees Fahrenheit 01/31/20 24 Heart Rate 72 /min 01/31/2024 Height 66 in 01/31/2024 Weight 180 lbs 01/31/2024 BMI 29.05 kg/m2 01/31/2024 Oximetry 99 % 01/31/2024 Encounters Encounter Location Date Provider Diagnosis [facility] (PODIATRY) [address] [place] [address] [place] [address] 01/31/2024 Susana Momin Controlled type 2 diabetes mellitus with diabetic polyneuropathy, without long-term current use of insulin E11.42 ; Pain in left toe(s) M79.675 and Pain in right toe(s) M79.674 Assessments Encounter Date Diagnosis (ICD Code) Assessment Notes Treatment Notes Treatment Clinical Notes Section Notes 01/31/2024 Controlled type 2 diabetes mellitus with diabetic polyneuropathy, without long-term current use of insulin (ICD-10 - E11.42) Mr. Verduzco is an 83 yo with DM2 and neuropathy who presents for routine nail care. All toenails were sharply debrided with nail nippers without incident. He noted pain relief immediatley. He has no complaints in regards to his feet. Followup in 3 months or as needed. 01/31/2024 Pain in left toe(s) (ICD-10 - M79.675) 01/31/2024 Pain in right toe(s) (ICD-10 - M79.674) Plan Of Treatment Treatment Notes Assessment Notes Controlled type 2 diabetes m ellitus with diabetic polyneuropathy, without long-term current use of insulin Mr. Verduzco is an 83 yo with DM2 and neuropathy who presents for routine nail care. All toenails were sharply debrided with nail nippers without incident. He noted pain relief immediatley. He has no complaints in regards to his feet. Followup in 3 months or as needed. Next Appt Details Follow Up: 3 Months, Reason: Progress Notes * Jair GROSSDOB:1940 (83 yo M)Acc No.[id number]:01/31/2024 Follow Up Patient: Jair HESS Provider: Rachel Momin PA-C :1940 A ge:83 Y S ex:Male Date:01/31/2024 Address:[address] [place], [place] [id number] Pcp:Mg Jack MD Check In:01:09 PM ESTCheck O ut:01:09 PM EST Subjective: * Chief Complaints: * N ail care * HPI: G eneral: Patient in office today for 1 year f/u for diabetic foot care/ nail care. Patients nails were trimmed and filed to his liking without incident. * Active Problem List H61.21 Impacted cerumen, ri ght ear Modified On:07/13/2022 Status:confirmed E66.3 Overweight Modified On:07/13/2022 Status:confirmed M76.71 Peroneal tendinitis, right leg Modified On:07/13/2022 Status:confirmed M79.671 Pain in right foot Modified On:07/13/2022 Status:confirmed S61.212A Laceration without f oreign body of right middle finger without damage to nail, initial encounter Modified On:07/13/2022 Status:confirmed S93.421S Sprain of deltoid li gament of right ankle, sequela Modified On:07/13/2022 Status:confirmed Z00.00 Encounter for genera l adult medical examination without abnormal findings Modified On:07/13/2022 Status:confirmed Z79.899 Other correction (cur rent) drug therapy Modified On:07/13/2022 Status:confirmed M25.371 Instability of right ankle joint Modified On:07/22/2022 Status:confirmed Z91.81 At low risk for fall Modified On:07/13/2022 Status:confirmed Z13.31 Encounter for screen ing for depression Modified On:07/13/2022 Status:confirmed J30.1 Seasonal allergic rh initis due to pollen Modified On:07/13/2022 Status:confirmed E11.42 Controlled type 2 di abetes mellitus with diabetic polyneuropathy, without long-term current use of insulin Modified On:07/06/2023 Status:confirmed G47.00 Insomnia, unspecifie d type Modified On:07/13/2022 Status:confirmed E11.65 Controlled type 2 di abetes mellitus with hyperglycemia, without long-term current use of insulin Modified On:07/13/2022 Status:confirmed G43.709 Chronic migraine wit hout aura, not intractable, without status migrainosus Modified On:07/13/2022 Status:confirmed M19.90 Other type of osteoa rthritis, unspecified site Modified On:07/13/2022 Status:confirmed G47.33 Obstructive sleep ap nai (adult) (pediatric) Modified On:07/13/2022 Status:confirmed I10 Essential (primary) hypertension Modified On:07/13/2022 Status:confirmed M47.816 Spondylosis without myelopathy or radiculopathy, lumbar region Modified On:07/13/2022 Status:confirmed I25.10 CAD in mor[place] artery Modified On:07/13/2022 Status:confirmed I87.2 Venous insufficiency (chronic) (peripheral) Modified On:07/13/2022 Status:confirmed Z85.46 Personal history of malignant neoplasm of prostate Modified On:07/13/2022 Status:confirmed K21.9 Gastro-esophageal re flux disease without esophagitis Modified On:07/13/2022 Status:confirmed E78.5 Dyslipidemia Modified On:07/13/2022 Status:confirmed E66.9 Obesity, unspecified classification, unspecified obesity type, unspecified whether serious comorbidity present Modified On:07/13/2022 Status:confirmed 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 Modified On:07/13/2022 Status:confirmed E55.9 Vitamin D deficiency , unspecified Modified On:07/13/2022 Status:confirmed Z95.0 Presence of cardiac pacemaker Modified On:07/13/2022 Status:confirmed H40.9 Glaucoma of both eye s, unspecified glaucoma type Modified On:07/13/2022 Status:confirmed M72.2 Plantar fasciitis, r ight Modified On:11/30/2022 Status:confirmed M76.821 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 Modified On:07/22/2022 Status:confirmed R32 Leaking of urine Modified On:11/12/2022 Status:confirmed M79.675 Pain in left toe(s) Modified On:02/08/2024 Status:confirmed M79.674 Pain in right toe(s) Modified On:02/08/2024 Status:confirmed * Medical History: * Surgical History: B ilateral Selective Coronary PTCA with Synergy Drug-eluting Stent Placement in the 1st and 2nd Obtuse Marginal Branches of the LT Circumflex Coronary Artery, Failed MynxGrip Closure Device Dr Arellano 08/30/2019Cardiac Pacemaker Insertion 2013[facility] Surgery ilateral Hernia Repair 2009Tonsillectomy Vasectomy * Hospitalization/Major Diagno stic Procedure: N o Hospitalization History. * Family History: F ather: . M other: . * Social History: T obacco Use: T obacco Use/Smoking P atient is a f ormer smoker H ow long has it been since you last smoked?�> 10 years Q uit 35 years ago. * Medications: T akingamLODIPine Besylate 5 MG Tablet 1 tablet Orally Once a day Aspirin 81 MG Tablet Chewable 1 tablet Orally Once a day Vilifkdsoo-JWHP-Iyecodse 50-325-40 MG Capsule 1 capsule as needed Orally every 4 hrs Carafate(Sucralfate) 1 GM Tablet 1 tablet on an empty stomach Orally Twice a day Colace(Docusate Sodium) 100 MG Capsule 1 capsule as needed Orally Once a day Crestor(Rosuvastatin Calcium) 10 MG Tablet 1 tablet Orally Once a day Dorzolamide HCl 2 % Solution 1 drop into affected eye Ophthalmic Three times a day Fluticasone Propionate 50 MCG/ACT Suspension 1 spray in each nostril Nasally Once a day Furosemide 20 MG Tablet 1 tablet Orally Once a day Gabapentin 600 MG Tablet 1 tablet Orally Once a day Irbesartan 300 MG Tablet 1 tablet Orally Once a day Isosorbide Mononitrate ER 30 MG Tablet Extended Release 24 Hour 1 tablet in the morning Orally Once a day Lancets Ultra Thin(Lancets) - Miscellaneous as directed Latanoprost 0.005 % Solution 1 drop into affected eye in the evening Ophthalmic Once a day Loperamide HCl 2 MG Capsule 1 capsule as needed Orally Four times a day [place]-3 Krill Oil(Krill Oil) 500 MG Capsule as directed Orally metFORMIN HCl ER 500 MG Tablet Extended Release 24 Hour 1 tablet with evening meal Orally Once a day Multivitamin Adult(Multiple Vitamin) - Tablet 1 tablet Orally Once a day Omeprazole 40 MG Capsule Delayed Release 1 capsule 30 minutes before morning meal Orally Once a day One Touch Ultra Test Strips - Miscellaneous One Touch Ultra Test Strips - Miscellaneous Plavix(Clopidogrel Bisulfate) 75 MG Tablet 1 tablet Orally Once a day Prazosin HCl 5 MG Capsule 1 capsule at bedtime Orally Once a day Sotalol HCl 80 MG Tablet 1 tablet Orally every 12 hrs tiZANidine HCl 4 MG Tablet 1 tablet as needed Orally Three times a day traZODone HCl 50 MG Tablet 1 tablet at bedtime as needed Orally Once a day Tylenol PM Extra Strength(diphenhydrAMINE-APAP (sleep)) 500-25 MG Tablet 1 tablet at bedtime as needed Orally Once a day Taking amLODIPine Besylate 5 MG Tablet 1 tablet Orally Once a day Taking Aspirin 81 MG Tablet Chewable 1 tablet Orally Once a day Taking Nihsskntqy-UUBZ-Mcvyruyc 50-325-40 MG Capsule 1 capsule as needed Orally every 4 hrs Taking Carafate(Sucralfate) 1 GM Tablet 1 tablet on an empty stomach Orally Twice a day Taking Colace(Docusate Sodium) 100 MG Capsule 1 capsule as needed Orally Once a day Taking Crestor(Rosuvastatin Calcium) 10 MG Tablet 1 tablet Orally Once a day Taking Dorzolamide HCl 2 % Solution 1 drop into affected eye Ophthalmic Three times a day Taking Fluticasone Propionate 50 MCG/ACT Suspension 1 spray in each nostril Nasally Once a day Taking Furosemide 20 MG Tablet 1 tablet Orally Once a day Taking Gabapentin 600 MG Tablet 1 tablet Orally Once a day Taking Irbesartan 300 MG Tablet 1 tablet Orally Once a day Taking Isosorbide Mononitrate ER 30 MG Tablet Extended Release 24 Hour 1 tablet in the morning Orally Once a day Taking Lancets Ultra Thin(Lancets) - Miscellaneous as directed Taking Latanoprost 0.005 % Solution 1 drop into affected eye in the evening Ophthalmic Once a day Taking Loperamide HCl 2 MG Capsule 1 capsule as needed Orally Four times a day Taking [place]-3 Krill Oil(Krill Oil) 500 MG Capsule as directed Orally Taking metFORMIN HCl ER 500 MG Tablet Extended Release 24 Hour 1 tablet with evening meal Orally Once a day Taking Multivitamin Adult(Multiple Vitamin) - Tablet 1 tablet Orally Once a day Taking Omeprazole 40 MG Capsule Delayed Release 1 capsule 30 minutes before morning meal Orally Once a day Taking One Touch Ultra Test Strips - Miscellaneous Taking One Touch Ultra Test Strips - Miscellaneous Taking Plavix(Clopidogrel Bisulfate) 75 MG Tablet 1 tablet Orally Once a day Taking Prazosin HCl 5 MG Capsule 1 capsule at bedtime Orally Once a day Taking Sotalol HCl 80 MG Tablet 1 tablet Orally every 12 hrs Taking tiZANidine HCl 4 MG Tablet 1 tablet as needed Orally Three times a day Taking traZODone HCl 50 MG Tablet 1 tablet at bedtime as needed Orally Once a day Taking Tylenol PM Extra Strength(diphenhydrAMINE- APAP (sleep)) 500-25 MG Tablet 1 tablet at bedtime as needed Orally Once a day * Allergies: A dhesiveNiaspanno[Allergies Verified] Objective: * Vitals: W t:180lbs, Ht: 66 in, Temp:97.5F, HR:72/min, BMI:29.05Index, Pain scale:01-10, Oxygen sat %:99%, Ht-cm: 167.64 cm, Wt-k.65 kg. * Examination: P odiatry Exam: S KIN: s kin intact, n o sign of infection Bilateral hallux toenails are absent except for regrowth and the corners. Remaining toenails a re elongated, dystrophic, and tender. MUSCULOSKELETAL: N o pain on palpation, Range of motion of ankle and foot is within normal limits, Muscle strength is 5/5 in all planes. NEUROLOGICAL: L ight touch sensation is intact in all nerve distributions, Negative Tinel sign. VASCULAR: P alpable pedal pulses bilaterally, No swelling, No calf pain on squeeze. Assessment: * Assessment: 1. C ontrolled type 2 diabetes mellitus with diabetic polyneuropathy, without long- term current use of insulin - E11.42 (Primary) 2 . P ain in left toe(s) - M79.675 3 . P ain in right toe(s) - M79.674 Plan: * Treatment: * Procedure Codes: * Follow Up: 3 Months * * Sign off status: Completed Visit Status: C HK (Check Out) true * Provider: Rachel Momin PA-C Date: 0 01/31/2024 Generated for [facility] ng/Fakarthikeyang/eTransmitting on: 0 11/23/2024 07:52 AM EDT History and Physical Notes * HPI (History of Present Illness) Category Sub-Category Detail Notes Category Not es [facility]/ nail care. Patients nails were trimmed and filed to his liking without incident. Examination Category Sub-Category Detail Notes Category Not es Podiatry Exam SKIN: skin intact, no sign of infection Bilateral hallux toenails are absent except for regrowth and the corners. Remaining toenails are elongated, dystrophic, and tender. MUSCULOSKELETAL: No pain on palpation, Range of motion of ankle and foot is within normal limits, Muscle strength is 5/5 in all planes. NEUROLOGICAL: Light touch sensation is intact in all nerve distributions, Negative Tinel sign. VASCULAR: Palpable pedal pulses bilaterally, No swelling, No calf pain on squeeze.
--- OUTSIDE RECORDS SUMMARY | 2024-05-01 09:20 | XMS_ITS ---
Author Organization [facility] [place] Address [address] [place] [address] Care Team Providers Care Transportation Superintendent Name Role Phone Mg Jack MD Primary Care Provider Unavailab Susana Espinosa Unavailable [phone] Allergies Allergen (clinical drug ingredient) Drug/Non Drug Allergy documented on EMR Reaction Allergy Type Onset Date Status Niaspan Unknown Drug Allergy Active Adhesive Unknown Allergy Active REASON FOR VISIT Nail Care Medications Medication SIG (Take, Route, Frequency, Duration) Notes Start Date End Date Status amLODIPine Besylate 5 MG 1 tablet Orally [...] O rally Three times a day Active Aspirin 81 MG 1 tablet Orally Once a day for 30 day(s) Active Prazosin HCl 5 MG 1 capsule at bedtime Orally Once a day for 30 day(s) Active Plavix 75 MG 1 tablet Orally Once a day for 30 day(s) Active One Touch Ultra Test Strips - Active Sotalol HCl 80 MG 1 tablet Orally ever y 12 hrs for 30 day(s) Active One Touch Ultra Test Strips - Active MegaRed [place]-3 Krill Oil 500 MG as directed Orally Active Loperamide HCl 2 MG 1 capsule as needed Orally Four times a day Active Omeprazole 40 MG 1 capsule 30 minutes before morning meal Orally Once a day for 30 day(s) Active Multivitamin Adult - 1 tablet Orally Onc e a day for 30 day(s) Active metFORMIN HCl ER 500 MG 1 tablet with ev ening meal Orally Once a day for 30 day(s) Active Isosorbide Mononitrate ER 30 MG 1 tablet in the morning Orally Once a day for 30 day(s) Active Irbesartan 300 MG 1 tablet Orally Once a day for 30 day(s) Active Latanoprost 0.005 % 1 drop into affected eye in the evening Ophthalmic Once a day Active Lancets Ultra Thin - as directed Active Gabapentin 600 MG 1 tablet Orally [...] Twice a day for 30 day(s) Active Qabmgusisx-YDOL-Ndokkzcr 50-325-40 MG 1 capsule as needed Orally every 4 hrs Active Social History Tobacco Use: Social History Observation Description Date Details (start date - stop date) Former Smoker NA - NA Tobacco Use/Smoking Question Answer Notes Patient is a former smoker How long has it been since you last smoked? > 10 years Section Notes: Quit 35 years ago Vital Signs Temperature 98 degrees Fahrenheit 05/01/2024 Heart Rate 72 /min 05/01/2024 Height 66 in 05/01/2024 Weight 180 lbs 05/01/2024 BMI 29.05 kg/m2 05/01/2024 Oximetry 99 % 05/01/2024 Encounters Encounter Location Date Provider Diagnosis [facility] (PODIAT[facility]) [address] [place] [address] [place] [address] 05/01/2024 Susana Momin Controlled type 2 diabetes mellitus with diabetic polyneuropathy, without long-term current use of insulin E11.42 Assessments Encounter Date Diagnosis (ICD Code) Assessment Notes Treatment Notes Treatment Clinical Notes Section Notes 05/01/2024 Controlled type 2 diabetes mellitus with diabetic polyneuropathy, without long-term current use of insulin (ICD-10 - E11.42) Plan Of Treatment No Information Progress Notes * Jair GROSSDOB:1940 (83 yo M)Acc No.[id number]:05/01/2024 Nurse Visit Patient: Jair HESS Provider: Rachel Momin PA-C :1940 A ge:83 Y S ex:Male Date:05/01/2024 Address:[address] [place], [place] [id number] Pcp:Mg Jack MD Check In:12:55 PM ESTCheck O ut:01:19 PM EST Subjective: * Chief Complaints: * N ail Care * HPI: G eneral: Pt here today for Diabetic foot care. All 10 nails tried with clippers and dremel. * Active Problem List H61.21 Impacted cerumen, [...] abnormal findings Modified On:07/13/2022 Status:confirmed Z79.899 Other fci (cur rent) drug therapy Modified On:07/13/2022 Status:confirmed [...] region Modified On:07/13/2022 Status:confirmed I25.10 CAD in [place] artery Modified On:07/13/2022 Status:confirmed I87.2 Venous insufficiency [...] Status:confirmed Z95.0 Presence of cardiac pacemaker Modified On:02/27/2023W/U Status:confirmed H40.9 Glaucoma of both eye s, unspecified glaucoma type Modified On:07/13/2022U Status:confirmed M72.2 Plantar fasciitis, r ight Modified On:11/30/2022U Status:confirmed M76.821 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 Modified On:07/22/2022/U Status:confirmed R32 Leaking of urine Modified On:11/12/2022/U Status:confirmed M79.675 Pain in left toe(s) Modified On:02/08/2024/U Status:confirmed M79.674 Pain in right toe(s) Modified On:02/08/2024U Status:confirmed * Medical History: * Surgical History: B ilateral Selective Coronary PTCA with Synergy Drug-eluting Stent Placement in the 1st and 2nd Obtuse Marginal Branches of the LT Circumflex Coronary Artery, Failed MynxGrip Closure Device Dr Arellano 08/30/2019Cardiac Pacemaker Insertion [address] [place] [address] Surgery 2010Bilateral Hernia Repair 2009Tonsillectomy Vasectomy * Hospitalization/Major Diagno [...] Chewable 1 tablet Orally Once a day Tlezcqcqkp-FWCY-Cuwjqzve 50-325-40 MG Capsule 1 capsule as needed [...] needed Orally Four times a day MegaRed [place]-3 Krill Oil(Krill Oil) 500 MG Capsule as [...] bedtime as needed Orally Once a day Medication List reviewed and reconciled with the patientTaking amLODIPine Besylate 5 MG Tablet 1 tablet Orally Once a day Taking Aspirin 81 MG Tablet Chewable 1 tablet Orally Once a day Taking Nzxjgstdnl-FUYT-Xbrlyjyt 50-325-40 MG Capsule 1 capsule as needed [...] Orally Four times a day Taking MegaRed [place]-3 Krill Oil(Krill Oil) 500 MG Capsule as [...] Once a day Taking Tylenol PM Extra Strength(diphenhydrAMINE-APAP (sleep)) 500-25 MG Tablet 1 tablet at bedtime as needed Orally Once a day Medication List reviewed and reconciled with the patient * Allergies: A dhesiveNiaspanchristine[Allergies Verified] Objective: * Vitals: W t:180lbs, Ht: 66 in, Temp:98F, HR:72/min, BMI:29.05Index, Pain scale:01-10, Oxygen sat %:99%, Ht-cm: 167.64 cm, Wt-k.65 kg. Assessment: * Assessment: 1. 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 All 10 nails tried with clippers and dremel
--- OUTSIDE RECORDS SUMMARY | 2024-07-31 09:00 | XMS_ITS ---
Author Organization The [facility] in [place] Address [address] [place] [address] Care Team Providers Care Grease Worker Name Role Phone Guero CASON, Mg Primary Care Provider Unavailab Susana Espinosa Unavailable [phone] REASON FOR VISIT nail care Encounters Encounter Location Date Provider Diagnosis [facility] (PODIATRY) [address] [place] [address] [place] [address] 07/31/2024 Susana Momin Plan Of Treatment No Information Progress Notes * Jair GROSSDOB:1940 (84 yo M)Acc No.[id number]:07/31/2024 UNLOCKED PROGRESS NOTE Nurse Visit Patient: Jair HESS Provider: Rachel Momin PA-C :1940 A ge:83 Y S ex:Male Date:07/31/2024 Address:[address] [place], [place] [address] Pcp:Mg Jack MD Subjective: * Chief Complaints: * 1 . Nail care. * Medical History: Objective: * Vitals: Assessment: Plan: * Treatment: * * Electronic signature of Fay Momin PA-C on 11/23/2024 at 07:53 AM EDT Sign off status: Pending Visit Status: C ANC (Cancelled) * Provider: Rachel Momin PA-C Date: 0 07/31/2024 Generated for Printi ng/Faxing/eTransmitting on: 0 11/23/2024 07:53 AM EDT
--- OUTSIDE RECORDS SUMMARY | 2024-11-21 23:59 | XMS_ITS | Continuity of Care Document ---
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) - 11/21/24 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) - 11/21/24 Squamous cell carcinoma of oropharynx(Discharge Diagnosis) - 11/21/24 Overweight(Discharge Diagnosis) - 11/21/24 Screening declined by patient(Discharge Diagnosis) - 11/21/24 Hypercholesterolemia(Discharge Diagnosis) - 11/21/24 Discharge Disposition: Home (Routine DC) Attending Physician: Demetrius Mirza MD Encounter Type: Clinic Allergies, Adverse Reactions, Alerts Substance Criticality Severity Reaction Reaction Severity Status Adhesive Bandage Rash Act rosa Niaspan ER Itching Active Assessment and Plan Future Scheduled Tests Laboratory* U Protein/Creat Ratio 11/24/23 * HgbA1c 11/30/23 * Microalbumin Level Urine 11/24/23 Immunizations Given and Recorded Vaccine Date Status Refusal Reason RSV vaccine, preF A-preF B, recombinant 04/21/24 R ecorded influenza virus vaccine, inactivated 04/17/24 Give n influenza virus vaccine, inactivated 04/12/23 Wesley rded influenza virus vaccine, inactivated 02/18/21 Wesley rded influenza virus vaccine, inactivated 02/14/20 Wesley rded zoster vaccine, inactivated 02/09/24 Recorded zoster vaccine, inactivated 11/22/23 Recorded pneumococcal 20-valent conjugate vaccine 11/22/23 Recorded SARSCoV2 mRNA(bkhqyuzan-sdap-mqgzoe) vac 11/25/21 Recorded SARS-CoV-2 (COVID-19) mRNA BNT-162b2 vax 1 03/06/21 Recorded SARS-CoV-2 (COVID-19) mRNA BNT-162b2 vax 06/27/20 Recorded SARS-CoV-2 (COVID-19) mRNA BNT-162b2 vax 06/06/20 Recorded SARS-CoV-2 (COVID-19) Ad26 vaccine 06/27/20 Record ed SARS-CoV-2 (COVID-19) Ad26 vaccine 06/06/20 Record ed influenza, unspecified formulation 01/22/18 Record ed pneumococcal 13-valent vaccine 01/30/14 Recorded 1Result Comment: 2022-11-03: TPV80 Medications Albuterol (Eqv-ProAir HFA) 90 mcg/inh inhalation aerosol See Instructions, 17 gm, Refill(s) 6, USE 2 INHALATIONS BY MOUTH EVERY 6 HOURS, [facility]), 163, cm, 11/04/22 15:03:00 EDT, Height/Length Dosing, 76, kg, 11/04/22 15:03:00 EDT, Weight Dosing Start Date: 11/09/22 Status: Ordered Quantity: 17.0 Unit: g Repeat number: 1 amLODIPine 5 mg Tab 5 mg = 1 tab(s), Oral, Daily, # 90 tab(s), Refills(s) 1, Pharmacy: [facility] #[id number], 163, cm, 05/31/23 10:14:00 EST, Height/Length Dosing, 80.2, kg, 05/31/23 10:14:00 EST, Weight Dosing Start Date: 05/31/23 Status: Ordered Quantity: 90.0 Unit: tab(s) Repeat number: 2 Aspir 81 81 mg, Oral, Daily, Refills(s) 0, Prophylaxis Start Date: 04/24/20 Status: Ordered Repeat number: 1 dorzolamide ophthalmic 2% solution 1 drop(s), OPTH, BID, Refill(s) 0, each eye Start Date: 04/24/20 Status: Ordered Repeat number: 1 Esgic 325 mg-50 mg-40 mg oral capsule 1 cap(s), Oral, q4hr for headache, 60 cap(s), Refill(s) 1, [facility] #[id number], 160, cm, 11/29/23 10:29:00 EDT, Height/Length Dosing, 78.5, kg, 11/29/23 10:29:00 EDT, Weight Dosing Start Date: 11/29/23 Status: Ordered Quantity: 60.0 Unit: cap(s) Repeat number: 2 fentaNYL 12 mcg/hr Transderm ER Film 1 patch(es), Topical, q72hr, Refill(s) 0 Start Date: 08/22/24 Status: Ordered Repeat number: 1 fluticasone Nasal 0.05 mg/inh [place] See Instructions, 16 gm, Refill(s) 0, USE 1 SPRAY IN BOTH NOSTRILS TWICE DAILY, [facility], 160, cm, 01/10/24 9:43:00 EDT, Height/Length Dosing, 77.8, kg, 01/10/24 9:43:00 EDT, Weight Dosing Start Date: 01/18/24 Status: Ordered Quantity: 16.0 Unit: g Repeat number: 1 furosemide 20 mg Tab 20 mg = 1 tab(s), Oral, Daily, Refills(s) 0, diuretic/water pill Start Date: 04/24/20 Status: Ordered Repeat number: 1 irbesartan 300 mg Tab 300 mg = 1 tab(s), Oral, Daily, Refills(s) 0, High blood pressure Start Date: 04/24/20 Status: Ordered Repeat number: 1 isosorbide mononitrate 30 mg, Oral, qAM, Refills(s) 0, High blood pressure Start Date: 04/24/20 Status: Ordered Repeat number: 1 latanoprost Opth 0.005% Janee Refill(s) 0, 10 mL, 0 Refill(s) Start Date: 05/19/23 Status: Ordered Repeat number: 1 metformin 500 mg ER Tab 500 mg = 1 tab(s), Oral, Daily, # 180 tab(s), Refills(s) 0, Pharmacy: [facility] #[id number], 163, cm, 05/31/23 10:14:00 EST, Height/Length Dosing, 80.2, kg, 05/31/23 10:14:00 EST, Weight Dosing Start Date: 05/31/23 Status: Ordered Quantity: 180.0 Unit: tab(s) Repeat number: 1 Multivitamin, Therapeutic w/ Minerals Oral, Daily, Refill(s) 0, Prophylaxis Start Date: 04/24/20 Status: Ordered Repeat number: 1 nystatin 100,000 units/mL Oral Susp 400,000 unit(s) = 4 mL, Oral, QID, # 112 mL, Refills(s) 1, Pharmacy: [facility] #[id number], 160, cm, 10/30/24 17:38:00 EDT, Height/Length Dosing, 70.1, kg, 10/30/24 17:38:00 EDT, Weight Dosing Start Date: 10/30/24 Status: Ordered Quantity: 112.0 Unit: mL Repeat number: 2 olanzapine 2.5 mg Tab See Instructions, 1 tab(s) Oral twice daily, # 180 tab(s), Refills(s) 3, Pharmacy: [facility] #[id number], 160, cm, 09/28/24 14:41:00 EDT, Height/Length Dosing, 67.4, kg, 09/28/24 14:41:00 EDT, Weight Dosing Start Date: 10/03/24 Status: Ordered Quantity: 180.0 Unit: tab(s) Repeat number: 4 omeprazole 40 mg Cap-DR See Instructions, TAKE 1 CAPSULE BY MOUTH DAILY, # 100 cap(s), Refills(s) 2, Pharmacy: [facility], 160, cm, 10/12/24 14:41:00 EDT, Height/Length Dosing, 69.5, kg, 10/12/24 14:41:00 EDT, Weight Dosing Start Date: 10/13/24 Status: Ordered Quantity: 100.0 Unit: cap(s) Repeat number: 1 ondansetron 8 mg Dis Tab DISSOLVE 1 TABLET ON THE TONGUE EVERY 8 HOURS NEEDED FOR NAUSEA OR VOMITING Start Date: 08/22/24 Status: Ordered Repeat number: 1 oxycodone 5 mg/5 mL oral solution take 7.5 mg q 8 hrs as needed for pain, Refills(s) 0 Start Date: 08/22/24 Status: Ordered Repeat number: 1 Pepcid 20 mg Tab 20 mg = 1 tab(s), Oral, Daily, # 90 tab(s), Refills(s) 3, Pharmacy: [facility], 160, cm, 01/10/24 9:43:00 EDT, Height/Length Dosing, 77.8, kg, 01/10/24 9:43:00 EDT, Weight Dosing Start Date: 01/19/24 Status: Ordered Quantity: 90.0 Unit: tab(s) Repeat number: 4 Plavix 75 mg Tab 75 mg = 1 tab(s), Oral, Daily, Refills(s) 0, Blood Thinner Start Date: 04/24/20 Status: Ordered Repeat number: 1 rosuvastatin 10 mg Tab See Instructions, TAKE 1 TABLET BY MOUTH DAILY, # 90 tab(s), Refills(s) 3, Pharmacy: [facility], 160, cm, 04/17/24 9:58:00 EST, Height/Length Dosing, 78.7, kg, 04/17/24 9:58:00 EST, Weight Dosing Start Date: 07/17/24 Status: Ordered Quantity: 90.0 Unit: tab(s) Repeat number: 4 sotalol 80 mg Tab 0.5 tab, Oral, BID, Refills(s) 0, High blood pressure Start Date: 04/24/20 Status: Ordered Repeat number: 1 tiZANidine 4 mg Tab 4 mg = 1 tab(s), Oral, Daily, Refills(s) 0, Spasm Start Date: 02/21/21 Status: Ordered Repeat number: 1 zonisamide 25 mg Cap 25 mg = 1 cap(s), Oral, BID, Refills(s) 0 Start Date: 02/15/23 Status: Ordered Repeat number: 1 Problem List Condition Confirmation Course Effective Dates Status Health Status Informant Bloating Confirmed Active Diabetic autonomic neuropathy associated with type 2 diabetes mellitus Confirmed Active Overweight (BMI 25.0-29.9) Confirmed Active BMI 30.0-30.9,adult Confirmed Resolved Pacemaker Confirmed Active Cervical lymphadenopathy Confirmed Active Cervical spondylosis 1 Confirmed Active Coronary artery disease involving [place] coronary artery of [place] heart without angina pectoris 2 Confirmed Active Pancreatic cyst Confirmed Active Urinary hesitancy Confirmed Active Diarrhea Confirmed Resolved Diverticulosis Confirmed Active Thoracic aortic ectasia 3 Confirmed Active Primary hypertension Confirmed Active Former smoker Confirmed Active FH: stomach cancer Confirmed Active Chronic GERD Confirmed Active GERD with apnea Confirmed Active Glaucoma Confirmed Active Hemorrhoids Confirmed Active Personal history of prostate cancer Confirmed Active History of colon polyps Confirmed Active Hypercholesterolemia Confirmed Active Immunosuppression 4 Confirmed Active Urinary incontinence without sensory awareness Confirmed Active Irregular bowel habits Confirmed Resolved Lumbar spondylosis 5 Confirmed Active Lump on neck Confirmed Active Metastasis to cervical lymph node 6 Confirmed Active Migraine Confirmed Active Mild pulmonary hypertension 7 Confirmed Active Nausea 8 Confirmed Active Numbness of right hand Confirmed Active Osteoarthritis Confirmed Active BMI 28.0-28.9,adult Confirmed Active Cancer associated pain 9 Confirmed Active PUD (peptic ulcer disease) Confirmed Active Right flank pain, chronic Confirmed Active RUQ pain Confirmed Active Sleep apnea Confirmed Active Squamous cell carcinoma of oropharynx Confirmed Active Constipation due to opioid therapy 10 Confirmed Active Type 2 diabetes mellitus with hypercholesterolemia 11 Confirmed Active Fecal urgency Confirmed Resolved Vitamin D deficiency Confirmed Active 1noted in 09/15/2023 Pain Management Consult note page 5. added per [facility] policy. 2noted in 11/10/2022 Cardiology Consult Note page 11. added per [facility] policy. 3added per 11/05/2023 query response. 4noted in 08/20/2024 [facility] ED Note page 5. added per [facility] policy. 5noted in 09/15/2023 Pain Management Consult note page 5. added per [facility] policy. 6noted in 08/21/2024 [facility] DC Summary page 2. added per [facility] policy. 7added per 08/23/2024 query response. 8noted in 08/16/2024 Palliative Care Consult Note page 5. added per [facility] policy. 9noted in 08/16/2024 Palliative Care Consult Note page 5. added per [facility] policy. 10noted in 08/16/2024 Palliative Care Consult Note page 5. added per [facility] policy. 11linked DM with HLD per [facility] policy. Procedures Procedure Date Related Diagnosis Body Site Status Ablation lower back 1 08/17/23 Com pleted Colonoscopy 06/14/23 Completed Esophagogastroduodenoscopy 04/15/23 Completed Esophagogastroduodenoscopy 2 05/20/20 Completed Angioplasty Completed Cardiac pacemaker procedure Completed Cataract 3 Completed Cholecystectomy Completed Colonoscopy Completed Hernia repair Completed Prostate excision Complet ed Tonsillectomy Completed Vasectomy Completed 1done for pain 22 diminunative ulcers, gastritis, gastric polyp, biopsy 3bilateral Social History Social History Type Response Smoking Status Former smoker, quit more than 30 days ago;Never; Type: Cigarettes; Concerns about tobacco use in household: No; Smoking Cessation Yes; Tobacco use per day: 1.5; Number of years: 24; Total pack years: 36; Started at age: 17.0; Stopped at age: 41; 1, 2, 3 entered on: 11/21/24 Sex Male Sex Representation Male (finding) 1former smoker. denies use. 2Patient states he smoked about 1.5 PPD, cigarettes, from about 17 y.o. to about 41 y.o. 3former smoker quit at age 41, 1 [facility] Hospital Discharge Instructions Patient Education 11/21/2024 14:57:25 BMI for Adults BMI for Adults Body mass index (BMI) [...] measurements used for? BMI is useful to: • Find out if your weight puts you at higher risk for medical problems. • Help recommend changes, such as in diet [...] Multiply the number of pounds by 703. • So, for an adult who weighs 150 lb, multiply that number by 703: 150 x 703, which equals 105,450. 3. Measure your height in inches. Then multiply that number by itself to get a measurement called inches squared. • So, for an adult who is 70 inches tall, the inches squared measurement is 70 inches x 70 inches, which equals 4,900 inches squared. 4. Divide the total from step 2 (number of lb x 703) by the total from step 3 (inches squared): 105,450 ÷ 4,900 = 21.5. This is your BMI. To calculate your BMI in metric measurements: 1. Measure your weight in kilograms (kg). • For this example, the weight is 70 kg. 2. Measure your height in meters (m). Then multiply that number by itself to get a measurement called meters squared. • So, for an adult who is 1.75 m tall, the meters squared measurement is 1.75 m x 1.75 m, whichequals 3.1 meters squared. 3. Divide the number of kilograms (your weight) by the meters squared number. In this example: 70 ÷ 3.1 = 22.6. This is your BMI. What do the results mean? BMI charts are used to see if you are underweight, normal weight, overweight, or obese. The following guidelines will be used: • Underweight: BMI less than 18.5. • Normal weight: BMI between 18.5 and 24.9. • Overweight: BMI between 25 and 29.9. • Obese: BMI of 30 or above. BMI is a tool and cannot diagnose a condition. Talk with your health care provider about what your BMI means for you. Keep these notes in mind: • Weight includes fat and muscle. Someone with a muscular build, such as an athlete, may have a BMI that is higher than 24.9. In cases like these, BMI is not a correct measure of body fat. • If you have a BMI of 25 or higher, your provider may need to do more testing to find out if excess body fat is the cause. • BMI is measured the same way for males and females. Females usually have more body fat than males of the same height and weight. Where to find more information For more information about BMI, including tools to quickly find your BMI, go to: • Centers for Disease Control and Prevention: cdc.gov • [place] Heart Association: heart.org • National Heart, Lung, and Blood [place]: nhlbi.nih.gov This information is not intended to replace advice given to you by your health care provider. Make sure you discuss any questions you have with your health care provider. Document Revised: 01/21/2023 Document Reviewed: 01/14/2023 [employer] Patient Education © 2023 [employer]. 11/21/2024 14:57:21 Heartburn Heartburn Heartburn is a type of pain or discomfort that can happen in the throat or chest. It is often described as a burning pain. It may also cause a bad, acid- like taste in the mouth. Heartburn may feel worse when you lie down or bend over, and it is often worse at night. Heartburn may be caused by stomach contents that move back up into the esophagus (reflux). Follow these instructions at home: Eating and drinking • Avoid certain foods and drinks as told by your health care provider. This may include: ◦ Coffee and tea, with or without caffeine. ◦ Drinks that contain alcohol. ◦ Energy drinks and sports drinks. ◦ Carbonated drinks or sodas. ◦ Chocolate and cocoa. ◦ Peppermint and mint flavorings. ◦ Garlic and onions. ◦ Horseradish. ◦ Spicy and acidic foods, including peppers, chili powder, ricardo powder, vinegar, hot sauces, andbarbecue sauce. ◦ [place] fruit juices and citrus fruits, such as oranges, nury, and limes. ◦ Tomato-based foods, such as red sauce, chili, salsa, and pizza with red sauce. ◦ Fried and fatty foods, such as donuts, slovak fries, potato chips, and high- fat dressings. ◦ High-fat meats, such as hot dogs and fatty cuts of red and white meats, such as rib eye steak, sausage, ham, and shaver. ◦ High-fat dairy items, such as whole milk, butter, and cream cheese. • Eat small, frequent meals instead of large meals. • Avoid drinking large amounts of liquid with your meals. • Avoid eating meals during the 2–3 hours before bedtime. • Avoid lying down right after you eat. • Do not exercise right after you eat. Lifestyle • If you are overweight, reduce your weight to an amount that is healthy for you. Ask your healthcare provider for guidance about a safe weight loss goal. • Do not use any products that contain nicotine or tobacco. These products include cigarettes, chewing tobacco, and vaping devices, such as e-cigarettes. These can make symptoms worse. If you need help quitting, ask your health care provider. • Wear loose-fitting clothing. Do not wear anything tight around your waist that causes pressure on your abdomen. • Raise (elevate) the head of your bed about 6 inches (15 cm) when you sleep. You can use a wedgeto do this. • Try to reduce your stress, such as with yoga or meditation. If you need help reducing stress, ask your health care provider. Medicines • Take zmhv-iud-ncispab and prescription medicines only as told by your health care provider. • Do not take aspirin or NSAIDs, such as ibuprofen, unless your health care provider told you to do so. • Stop medicines only as told by your health care provider. If you stop taking some medicines tooquickly, your symptoms may get worse. General instructions • Pay attention to any changes in your symptoms. • Keep all follow-up visits. This is important. Contact a health care provider if: • You have new symptoms. • You have unexplained weight loss. • You have difficulty swallowing, or it hurts to swallow. • You have wheezing or a persistent cough. • Your symptoms do not improve with treatment. • You have frequent heartburn for more than 2 weeks. Get help right away if: • You suddenly have pain in your arms, neck, jaw, teeth, or back. • You suddenly feel sweaty, dizzy, or light-headed. • You have chest pain or shortness of breath. • You vomit and your vomit looks like blood or coffee grounds. • Your stool is bloody or black. These symptoms may represent a serious problem that is an emergency. Do not wait to see if the symptoms will go away. Get medical help right away. Call your local emergency services (911 in the [place] Do not drive yourself to the hospital. Summary • Heartburn is a type of pain or discomfort that can happen in the throat or chest. It is often described as a burning pain. It may also cause a bad, acid- like taste in the mouth. • Avoid certain foods and drinks as told by your health care provider. • Take leql-jbu-wzuwyxy and prescription medicines only as told by your health care provider. Do not take aspirin or NSAIDs, such as ibuprofen, unless your health care provider told you to do so. • Contact a health care provider if your symptoms do not improve or they get worse. This information is not intended to replace advice given to you by your health care provider. Make sure you discuss any questions you have with your health care provider. Document Revised: 11/06/2020 Document Reviewed: 11/06/2020 [employer] Patient Education © 2023 [employer]. 11/21/2024 14:57:17 Blood Glucose Monitoring, Adult Blood Glucose Monitoring, Adult To manage your diabetes, you will need to keep track of your blood sugar (glucose). Check your blood glucose as often as told. Keep a record of your results over time. This can help you: • Know when to adjust your diabetes management plan with your health care provider. • See how food, exercise, illness, and medicines affect your blood glucose. • Know what your blood glucose is at any time. Your provider will set specific goals for your blood glucose levels. In many cases, these goals maybe: • Before meals (preprandial): 80–130 mg/dL (4.4–7.2 mmol/L). • After meals (postprandial): below 180 mg/dL (10 mmol/L). • A1C level: less than 7%. Supplies needed: • Blood glucose meter. • Test strips for your meter. Each meter has its own strips. You must use the strips that came with your meter. • A needle to prick your finger (lancet). Do not use a lancet more than once. • A device that holds the lancet (lancing device). • A journal or logbook to write down your results. How to check your blood glucose Checking your blood glucose 1. Wash your hands with soap and water for at least 20 seconds. 2. Prick the side of your finger with the lancet. Do not prick the tip of your finger. Do not use the same finger more than once. 3. Gently rub the finger until a small drop of blood appears. 4. Follow the instructions that came with the meter about how to insert the test strip, apply bloodto the strip, and use the meter. 5. Write down your result and any notes. Using alternative sites Some meters let you use other areas of your body (alternative sites) to test your blood. The most common places are the forearm, the thigh, and the palm of your hand. Alternative sites may not be as accurate as your fingers. The result you get may also be delayed. Use the finger only, and do not use alternative sites, if: • You think you have low blood glucose (hypoglycemia). • You sometimes do not know that your blood glucose is getting low (hypoglycemia unawareness). General tips and recommendations Blood glucose log • Write down the result each time you check your blood glucose. Note anything that may be affecting your blood glucose. This can help you and your provider: ◦ Look for patterns over time. ◦ Adjust your management plan as needed. • Check if your meter has an lenin or lets you download your records to a computer. Most meters keep a record of glucose readings in the meter. If you have type 1 diabetes: • You may need to check your blood glucose 4 or more times a day. Check your blood glucose as often as told by your provider. This may include: ◦ Before each meal and snack. ◦ Two hours after a meal. ◦ Before bedtime. ◦ If you have symptoms of hypoglycemia. ◦ After treating your hypoglycemia. ◦ Before doing things that have a risk of injury, such as driving or using machinery. ◦ Before and after exercise. ◦ Between 2:00 a.m. and 3:00 a.m., as told. • You may need to check your blood glucose more often, such as up to 6–10 times a day, if: ◦ You have diabetes that is not well controlled. ◦ You are ill. ◦ You have a history of severe hypoglycemia. ◦ You have hypoglycemia unawareness. If you have type 2 diabetes: • You may need to check your blood glucose 2 or more times a day. Check your blood glucose as often as told by your provider. This may include: ◦ Before and after exercise. ◦ Before doing things that have a risk of injury, such as driving or using machinery. • You may need to check your blood glucose more often if: ◦ Your medicine is being adjusted. ◦ Your diabetes is not well controlled. ◦ You are ill. General tips • Make sure you always have your supplies with you. • After you use a few boxes of test strips, adjust (calibrate) your blood glucose meter. Follow the instructions that came with your meter. • If you have questions or need help, all blood glucose meters have a 24-hour hotline phone number that you can call. Also contact your provider with any questions or concerns. Where to find more information • The [place] Diabetes Association: diabetes.org The Association of Diabetes Care & Education Specialists: diabeteseducator.org Contact a health care provider if: • Your blood glucose is at or above 240 mg/dL (13.3 mmol/L) for 2 days in a row. • You have been sick or have had a fever for 2 days or longer and are not getting better. • You have any of these problems for more than 6 hours: ◦ You cannot eat or drink. ◦ You have nausea or vomiting. ◦ You have diarrhea. Get help right away if: • Your blood glucose is lower than 54 mg/dL (3 mmol/L). • You become confused, or you have trouble thinking clearly. • You have trouble breathing. • You have moderate to high ketone levels in your pee (urine). These symptoms may be an emergency. Get help right away. Call 911. • Do not wait to see if the symptoms will go away. • Do not drive yourself to the hospital. This information is not intended to replace advice given to you by your health care provider. Make sure you discuss any questions you have with your health care provider. Document Revised: 03/19/2023 Document Reviewed: 03/19/2023 [employer] Patient Education © 2023 [employer]. 11/21/2024 14:57:08 Pulmonary Hypertension Pulmonary Hypertension Pulmonary hypertension is a long-term (chronic) condition in which there is high blood pressure in the blood vessels of the lungs (pulmonary arteries). This condition occurs when pulmonary arteries become narrow and tight, making it harder for blood to flow through the lungs. This in turn makes theheart work harder to pump blood through the lungs, making it harder for you to breathe. Over time, pulmonary hypertension can weaken and damage the heart muscle, specifically the right side of the heart. Pulmonary hypertension is a serious condition that can be life-threatening. What are the causes? This condition may be caused by different medical conditions. It can be categorized by cause into five groups: • Group 1: Pulmonary hypertension that is caused when the arteries in the lungs become narrowed, thickened, or stiff (pulmonary arterial hypertension). This may happen with no known cause, or it may be: ◦ Passed from parent to child (hereditary). ◦ Caused by another disease, such as a connective tissue disease (including lupus or scleroderma), congenital heart disease, liver disease, or HIV (human immunodeficiency virus). ◦ Caused by certain medicines or poisons. • Group 2: Pulmonary hypertension that is caused by weakness of the left chamber of the heart (left ventricle) or heart valve disease. • Group 3: Pulmonary hypertension that is caused by chronic lung disease or low oxygen levels. Causes in this group include: ◦ Emphysema or chronic obstructive pulmonary disease (COPD). ◦ Untreated sleep apnea. ◦ Pulmonary fibrosis. ◦ Long-term exposure to high altitudes in certain people who may already be at higher risk for pulmonary hypertension. • Group 4: Pulmonary hypertension that is caused by blood clots in the lungs. • Group 5: Other causes of pulmonary hypertension, such as sickle cell anemia, sarcoidosis, abnormal growths of tissue (tumors) pressing on the pulmonary arteries, and various other diseases. What are the signs or symptoms? Symptoms of this condition include: • Shortness of breath. You may notice shortness of breath with: ◦ Activity, such as walking. ◦ Minimal activity, such as getting dressed. ◦ No activity, like when you are sitting still. • A cough. Sometimes, bloody mucus from the lungs may be coughed up. • Tiredness. • Dizziness, light-headedness, or fainting, especially with physical activity. • Rapid heartbeat, or feeling your heart flutter or skip a beat (palpitations). • Veins in the neck getting larger. • Swelling of the lower legs, abdomen, or both. • Bluish color of the lips and fingertips. • Chest pain or tightness. • Abdominal pain, especially in the upper abdomen. How is this diagnosed? This condition may be diagnosed based on one or more of the following tests: • Blood tests. • Imaging tests, such as: ◦ Chest X-ray. ◦ CT scan. ◦ Echocardiogram. This test uses sound waves (ultrasound) to produce an image of the heart. ◦ Ventilation–perfusion scan. This test uses radioactive material to test how well air moves and blood flows in and out of the lungs. • Pulmonary function test. This test measures how much air your lungs can hold. It also tests howwell air moves in and out of your lungs. • 6-minute walk test. This tests how severe your condition is in relation to your activity levels. • ECG (electrocardiogram). This test records the electrical impulses of the heart. • Cardiac catheterization. This is a procedure in which a thin tube (catheter) is passed into thepulmonary artery and used to test the pressure in your pulmonary artery and the right side of your heart. • Lung biopsy. This involves having a procedure to remove a small sample of lung tissue for testing. This may help determine an underlying cause of your pulmonary hypertension. How is this treated? There is no cure for this condition, but treatment can help to relieve symptoms and slow the progress of the condition. Treatment may include: • Cardiac rehabilitation. This is a treatment program that includes exercise training, education,and counseling to help you get stronger and return to an active lifestyle. • Oxygen therapy. • Medicines that: ◦ Lower blood pressure. ◦ Relax (dilate) the pulmonary blood vessels. ◦ Help the heart beat more efficiently and pump more blood. ◦ Help the body get rid of extra fluid. ◦ Thin the blood in order to prevent blood clots in the lungs. • Lung surgery to relieve pressure on the heart. This may be needed for severe cases that do not respond to medical treatment. • Heart–lung transplant, or lung transplant. This may be done in very severe cases. Follow these instructions at home: Eating and drinking • Eat a healthy diet that includes plenty of fresh fruits and vegetables, whole grains, and beans. • Limit your salt (sodium) intake to less than 2,300 mg a day. Activity • Get plenty of rest. • Exercise as directed. Talk with your health care provider about what type of exercise is safe for you. • Avoid sitting in hot tubs or saunas for long periods of time. • Avoid high altitudes. Lifestyle • Do not use any products that contain nicotine or tobacco. These products include cigarettes, chewing tobacco, and vaping devices, such as e-cigarettes. If you need help quitting, ask your health care provider. • Avoid secondhand smoke. General instructions • Take wsyg-rmd-aoswkrw and prescription medicines only as told by your health care provider. Do not change or stop medicines without checking with your health care provider. • Stay up to date on your vaccines, especially yearly flu (influenza) and pneumonia vaccines. • If you are a woman of child-bearing age, avoid becoming . Talk with your health care provider about control. • Consider ways to get support for the anxiety and stress of living with pulmonary hypertension. Talk with your health care provider about support groups and online resources. • Use oxygen therapy at home as directed. • Keep track of your weight. Weight gain could be a sign that your condition is getting worse. • Keep all follow-up visits. This is important. Contact a health care provider if: • Your cough gets worse. • You have more shortness of breath than usual, or you start to have trouble doing activities that you could do before. • You need to use medicines or oxygen more frequently or in higher dosages than usual. Get help right away if: • You have severe shortness of breath. • You have chest pain or pressure. • You cough up blood. • You have swelling of your feet or legs that gets worse. • You have rapid weight gain over a period of 1–2 days. • Your medicines or oxygen do not provide relief. These symptoms may represent a serious problem that is an emergency. Do not wait to see if the symptoms will go away. Get medical help right away. Call your local emergency services (911 in the [place] Do not drive yourself to the hospital. Summary • Pulmonary hypertension is a long-term (chronic) condition in which there is high blood pressurein the blood vessels of the lungs (pulmonary arteries). • Pulmonary hypertension is a serious condition that can be life-threatening. It can be caused bya variety of illnesses. • Treatment may involve taking medicines and using oxygen therapy. Severe cases may require surgery or a transplant. This information is not intended to replace advice given to you by your health care provider. Make sure you discuss any questions you have with your health care provider. Document Revised: 03/17/2021 Document Reviewed: 03/17/2021 [employer] Patient Education © 2023 [employer] Patient Care team information Care Team Personnel Name: Galileo Tucker Position: FT Floral Department Specialist - Self Assign Member Role: Electronic Operator Name: Juan Corado MD Position: FT Physician - Hospitalist Member Role: Neurologist Address: [address] [address]- [place] Telecom: Name: NEFTALI CASON, NASH Position: FT [employer] Tube Bender Member Role: [employer] Tube Bender Address: [address] [facility] [address] [place] [address]- [place] Telecom: Name: ALANNA HARDY DPM Member Role: Record Keeper Address: [address] [facility] [address]- [place] Telecom: Name: Macey PATTEN DO Position: FT Physician Member Role: Orthopaedist Address: [address] [facility] [address] [place] [address]- [place] Telecom: Name: INA WOLF MD Member Role: Refinery Operator Visbreaking Telecom: Name: Pam Rojas Position: ProFit: Claims Followup Rep (Retread Operator) Member Role: ProFit: Claims Followup Rep (Retread Operator) Name: ERWIN STODDARD MD Position: FT Physician Member Role: House Wirer Address: [address] [place] [address]- Telecom: Name: Demetrius Mirza MD Member Role: Primary Care Physician Address: [address] [place] [address]- Telecom: Name: Consuelo Mcghee MD Position: FT Physician Member Role: Coastal/Harbor Defense Officer Address: [address] [place] [address]- [place] Telecom: Name: Dequan GALICIA MD Position: FT Ambulatory - Urology Provider Member Role: Urologist Address: [address] [facility] [address] [address]- [place] Telecom: Care Team Related Persons Name: AVI GROSS Name: PIERRE GROSS Name: RADHA CROW Insurance Providers Guarantor name: Health Plan Information #: 1 Payer: NA Payer Identifier: [id number] Member Number: [id number] Group Number: [id number] Subscriber Identifier: [id number] Relationship to Subscriber: Self Coverage Type: MEDICARE Coverage Verification Date: 24 Telecom: CRISTINO Address: NA
--- OUTSIDE RECORDS SUMMARY | 2024-11-23 13:33 | XMS_ITS | Clinical Summary ---
Author Organization [facility] Address [address] [place] [address] Phone Care Team Providers Care Livestock Handler Name Role Phone Demetrius Mirza MD Primary Care Provider Allergies Active Allergy Reactions Criticality Noted Date Comments Adhesive Rash Low 07/27/2023 Adhesive Tape-Silicones Rash Low 01/19/2019 Niacin Hives,Itching,Unknown 01/19/2019 Medications amLODIPine (Norvasc) 5 mg tablet Take 1 tablet (5 mg) by mouth once daily. 4 Active aspirin 81 mg EC tablet Take 1 tablet (81 mg) by mouth once daily. Active diphenhydrAMINE- acetaminophen (Tylenol PM) 25-500 mg per tablet Take 1 tablet by mouth once daily as needed. Active butalbital-aceta minophen-caff 50-325-40 mg tablet Take 1 tablet by mouth every 4 hours if needed. 3 Active clopidogrel (Plavix) 75 mg tablet Take 1 tablet (75 mg) by mouth once daily. Active dorzolamide (Trusopt) 2 % ophthalmic solution Administer 1 drop into both eyes 2 times a day. 4 Active famotidine (Pepcid) 20 mg tablet Take 1 tablet (20 mg) by mouth once daily. 4 Active fluticasone (Flonase) 50 mcg/actuation nasal spray Administer 1 spray into each nostril once daily. 3 Active furosemide (Lasix) 20 mg tablet Take 1 tablet (20 mg) by mouth once daily. Active irbesartan (Avapro) 300 mg tablet Take 1 tablet (300 mg) by mouth once daily. 4 Active isosorbide mononitrate ER (Imdur) 30 mg 24 hr tablet Take 1 tablet (30 mg) by mouth once daily. 3 Active latanoprost (Xalatan) 0.005 % ophthalmic solution Administer 1 drop into both eyes once daily at bedtime. 4 Active loperamide (Imodium A-D) 2 mg tablet Take 1 tablet (2 mg) by mouth 4 times a day as needed. Active metFORMIN XR 500 mg 24 hr tablet Take 1 tablet (500 mg) by mouth once daily. Active omeprazole (PriLOSEC) [address] capsule Take 1 capsule (40 mg) by mouth once daily. 3 Active rosuvastatin (Crestor) 10 mg tablet Take 1 tablet (10 mg) by mouth once daily. Active sotalol (Betapace) 80 mg tablet Take 0.5 tablets (40 mg) by mouth 2 times a day. 4 Active tiZANidine (Zanaflex) 4 mg tablet Take 1 tablet (4 mg) by mouth once daily. 4 Active zonisamide (Zonegran) 25 mg capsule Take 1 capsule (25 mg) by mouth twice a day. 3 Active multivitamin tablet Take 1 tablet by mouth once daily. Active psyllium (Metamucil) 3.4 gram packet Take 3 capsules by mouth once daily. 3 Active lancets misc 1 each. 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 Encounters Date Type Department Care Team Description 09/26/2024 Telephone [facility] [address] [place] [address] Gene Del Castillo, BORIS Pain with swallowing- update 09/21/2024 Telephone [facility] [address] [place] [address] Gene Del Castillo RN Difficulty eating 09/11/2024 2:00 PM EDT Office Visit [facility] [address] [facility] [address] [place] [address] Mary Schneider MD 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); Dysphagia, unspecified type 09/11/2024 Travel from Last 3 Months Social History Tobacco Use Types Packs/Day Years Used Date Smoking Tobacco: Former Cigarettes Q uit: 1982 Smokeless Tobacco: Former Tobacco Cessation:Counseling Given: No Alcohol Use Standard Drinks/Week Comments Yes 2 (1 standard drink = 0.6 oz pur e alcohol) PHQ-2 Answer Date Recorded Patient Health Questionnaire-2 Score 0 09/11/2024 Sex and Gender Information Value Date Recorded Sex Assigned at Not on file Legal Sex Male 9:24 AM EST Gender Identity Male 05/11/2024 5:56 AM EST Sexual Orientation Straight 05/11/2024 5: 56 AM EST Last Filed Vital Signs Vital Sign Reading Time Taken Comments Blood Pressure 147/96 06/05/2024 2:13 PM EST Pulse 65 06/05/2024 2:13 PM EST Temperature 36 C (96.8 F) 09/11/2024 1:07 PM EDT Respiratory Rate 16 06/05/2024 2:13 PM EST Oxygen Saturation 96% 06/05/2024 2:13 PM EST Inhaled Oxygen Concentration - - Weight 67.7 kg (149 lb 4.8 oz) 09/11/2024 1:07 P M EDT Height 165.1 cm (5' 5 ) 09/11/2024 1:07 PM EDT Body Mass Index 24.84 09/11/2024 1:07 PM EDT Plan of Treatment Upcoming Encounters Date Type Department Care Team (Late st Contact Info) Description 12/11/2024 1:45 PM EDT Office Visit [facility] [address] [facility] 2nd [place] [address] [place] [address] [place], [place] [id number] Health Maintenance Due Date Last Done Comments Diabetes: Hemoglobin A1C 1940 Diabetes: Urine Protein Screening 1940 Echocardiogram 1940 Lipid Panel 1940 Medicare Annual Wellness Visit (AWV) 1940 Diabetes: Retinopathy Screening 10/29/1949 DTaP/Tdap/Td Vaccines (1 - Tdap) 10/29/1961 COVID-19 Vaccine ( season) 2024 04/28/2023, 11/25/2021, 03/06/2021, Additional history exists Influenza Vaccine (#1) 2025 , 04/12/2023, 02/18/2021, Additional history exists Creatinine Level 04/11/2025 04/11/2024 Potassium Level 04/11/2025 04/11/2024 Pneumococcal Vaccine Completed 11/22/2023, 01/31/20 14 Zoster Vaccines Completed 02/09/2024, 11/22/2023 RSV High Risk: (Elderly (60+) or Population) Completed 04/21/2024 HIB Vaccines Aged Out No longer eligi ble based on patient's age to complete this topic HPV Vaccines (No Doses Required) Completed Hepatitis A Vaccines Aged Out No long er eligible based on patient's age to complete this topic Hepatitis B Vaccines Aged Out No long er eligible based on patient's age to complete this topic IPV Vaccines Aged Out No longer eligi ble based on patient's age to complete this topic Meningococcal Vaccine Aged Out No kim dwayne eligible based on patient's age to complete this topic Rotavirus Vaccines Aged Out No longer eligible based on patient's age to complete this topic Procedures Procedure Name Priority Date/Time Associated Diagnosis Comments BASIC METABOLIC PANEL Routine 04/11/2024 9:14 AM EST Oral lesion Malignant neoplasm of floor of mouth from Last 3 Months or Most Recently Relevant to Health Maintenance Results * (ABNORMAL) Basic Metabolic Panel (04/11/2024 9:14 AM EST) [facility] Glucose 109(H) 74 - 99 mg/dL LAB CHEMISTRY METHOD 04/11/2024 11:09 AM EST [facility] Sodium 142 136 - 145 mmol/L LAB CHEMISTRY METHOD 04/11/2024 11:09 AM EST [facility] Potassium 4.5 3.5 - 5.3 mmol/L LAB CHEMISTRY METHOD 04/11/2024 11:09 AM EST [facility] Chloride 107 98 - 107 mmol/L LAB CHEMISTRY METHOD 04/11/2024 11:09 AM EST [facility] Bicarbonate 25 21 - 32 mmol/L LAB CHEMISTRY METHOD 04/11/2024 11:09 AM EST [facility] Anion Gap 15 10 - 20 mmol/L LAB CHEMISTRY METHOD 04/11/2024 11:09 AM EST [facility] Urea Nitrogen 18 6 - 23 mg/dL LAB CHEMISTRY METHOD 04/11/2024 11:09 AM EST [facility] Creatinine 0.96 0.50 - 1.30 mg/dL LAB CHEMISTRY METHOD 04/11/2024 11:09 AM EST [facility] eGFR 78 >60 mL/min/1. 73m*2 LAB CHEMISTRY METHOD 04/11/2024 11:09 AM EST [facility] Comment: Calculations of estimated GFR are performed using the 2020 CKD-EPI Study Refit equation without the race variable for the IDMS-Traceable creatinine methods. https://jasn.asnjournals.org/content//ASN.6690873696 Calcium 9.9 8.6 - 10.6 mg/dL LAB CHEMISTRY METHOD 04/11/2024 11:09 AM EST [facility] Blood Venous blood specimen / Unknown Venipuncture / Unknown 04/11/2024 9:14 AM EST 04/11/2024 10:37 AM EST us Fe Max MD LAB BLOOD ORDERABLES Final Re sult [facility] [address] [facility] [id number] [place] [address] from Last 3 Months or Most Recently Relevant to Health Maintenance Insurance [facility] MEDICARE HEALTHCARE DUAL COMPLETE [place] [id number] [facility] MEDICARE [employer] [facility] MEDICARE HEALTHCARE DUAL COMPLETE [employer] MEDICARE [employer] Advance Directives For more information, please contact: [phone] (Available ) Documents on File Type Date Recorded Patient Staff Occupational Therapist Expl [facility] Power of Atty 05/11/2024 Living Will 05/11/2024 Care Teams Livestock Handler Relationship Specialty Start Date End Date Demetrius Mirza MD [address] [facility] [place] [address] PCP - General Family Medicine 04/11/24
--- OUTSIDE RECORDS SUMMARY | 2024-11-23 13:33 | XMS_ITS | Encounter Summary ---
Author Organization [facility] Address [address] [place] [address] Care Team Providers Care Lime Supervisor Name Role Phone Juan Corado MD Unavailable [phone] Demetrius Mirza MD Primary Care Provider [phone] Encounter Details Date Type Department Care Team (Late st Contact Info) Description 07/17/2024 External Result Encounter [facility] External Department Unsolicited Matteo Melo MD [address] [facility] [address] [place] [address] Social History Tobacco Use Types Packs/Day Years Used Date Smoking Tobacco: Former Cigarettes Passive Smoke Exposure: Past Comments:Years smoked: 25 Alcohol Use Standard Drinks/Week Comments Yes 0 (1 standard drink = 0.6 oz pure alcohol) 1 or 2 drinks/day, monthly or less; Caffeine: 1 drink/day Sex and Gender Information Value Date Recorded Sex Assigned at Not on file Legal Sex Male 10:09 PM EDT Gender Identity Not on file Sexual Orientation Not on file documented as of this encounter Plan of Treatment Not on file documented as of this encounter Procedures Procedure Name Priority Date/Time Associated Diagnosis Comments XR CHEST 1 VIEW 07/17/2024 2:07 PM EST documented in this encounter Results * XR chest 1 view (07/17/2024 2:07 PM EST) Anatomical Region Laterality Modality Chest Radiographic Tonia ging 07/17/2024 2:07 PM EST Impressions 07/17/2024 2:10 PM EST RIGHT-SIDED PORT TIP IN THE SVC. NO PNEUMOTHORAX. Impression dictated by: Mario Urias Jr., D.OAidan07/17/2024 2:07 PM Dictation Location: RADIO-PC-22 Transcribed By: PWS 07/17/24 140 Dictated By: Mario Urias Jr, DO 07/17/247 Signed By: <Electronically signed by Mario Urias Jr, DO in OV> 07/17/24 1407 Narrative 07/17/2024 2:10 PM EST [place] [id number] XRay Report Signed Patient: Jair Bennett MR#: [id number] : 1940 Acct:[id number] Age/Sex: 83 / M ADM Date: 07/17/24 Loc: ID Room: Type: [facility] Attending Dr: Matteo Melo MD Copies to: Matteo Melo MD Ordering Provider: Matteo Melo MD Date of Service: 07/17/24 XR/XR chest 1V portable: POST PORT SINGLE VIEW CHEST CLINICAL HISTORY: Port placement COMPARISON: None FINDINGS: Right-sided port tip in the SVC. Heart is normal in size. Pacemaker device. No pneumothorax consolidation pleural effusion or free air. XR/XR chest 1V portable Procedure Note Radiology, Radiologist, - 07/24/[address] [address] XRay Report Signed Patient: Jair Bennett PMR#: [id number] : 1940Acct:[id number] Age/Sex: 83 / MADM Date: 07/17/24 Loc: ID Room:Type: [facility] Attending Dr: Matteo Melo MD Copies to: Matteo Melo MD Ordering Provider: Matteo Melo MD Date of Service: 07/17/24 XR/XR chest 1V portable: POST PORT SINGLE VIEW CHEST CLINICAL HISTORY: Port placement COMPARISON: None FINDINGS: Right-sided port tip in the SVC. Heart is normal in size. Pacemakerdevice. No pneumothorax consolidation pleural effusion or free air. XR/XR chest 1V portable IMPRESSION: RIGHT-SIDED PORT TIP IN THE SVC. NO PNEUMOTHORAX. Impression dictated by: Mario Urias Jr., D.OAidan07/17/2024 2:07 PM Dictation Location: [id number]-22 Transcribed By: [facility] 07/17/24 1407 Dictated By: Mario Urias Jr, DO 07/17/24 1407 Signed By: <Electronically signed by Mario Urias Jr, DO inOV> 07/17/24 1407 us Matteo Bell MD IMG XR PROCEDURES Edited Res ult - Final documented in this encounter Visit Diagnoses Not on filedocumented in this encounter Care Teams Lime Supervisor Relationship Specialty Start Date End Date Demetrius Mirza MD [address] [place] [address] PCP - General Family Medicine 01/26/24 Juan Corado MD Referring Physician Neurology 08/03/23 documented as of this encounter
--- OUTSIDE RECORDS SUMMARY | 2024-11-23 13:33 | XMS_ITS | Encounter Summary ---
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
--- OUTSIDE RECORDS SUMMARY | 2024-11-23 13:33 | XMS_ITS | Encounter Summary ---
Author Organization [facility] Address [address] [place] [address] Care Team Providers Care Chore Worker Name Role Phone Juan Corado MD Unavailable [phone] Demetrius Mirza MD Primary Care Provider [phone] Encounter Details Date Type Department Care Team ([facility] st Contact Info) Description 09/04/2020 External Result Encounter [facility] External Department Unsolicited Param Cosme, MARCE [address] [address] Social History Tobacco Use Types Packs/Day Years Used Date Smoking Tobacco: Never Assessed Sex and Gender Information Value Date Recorded Sex Assigned at Not on file Legal Sex Male 10:09 PM EDT Gender Identity Not on file Sexual Orientation Not on file documented as of this encounter Plan of Treatment Not on file documented as of this encounter Procedures Procedure Name Priority Date/Time Associated Diagnosis Comments MR LUMBAR SPINE WO CONTRAST 09/04/2020 9:56 AM EDT documented in this encounter Results * MR lumbar spine wo contrast (09/04/2020 9:56 AM EDT) Anatomical Region Laterality Modality Spine, L-spine Magnetic Resonan ce 09/04/2020 9:56 AM EDT Impressions 09/05/2020 7:56 AM EDT 1. Tear of the anterior talofibular ligament. 2. Small osteochondral injury at the tibial plafond anteriorly. 3. Relatively mild arthritic changes. 4. Plantar calcaneal spurring. Impression dictated by: Jair Vega Jr., M.D.09/05/2020 7:53 AM Dictation Location: [place] [address] Transcribed By: [facility] 09/05/20 0753 Dictated By: Jair Vega Jr, MD 09/04/20 0956 Signed By: <Electronically signed by Jair Vega Jr, MD in OV> 09/05/20 0753 Narrative 09/05/2020 7:56 AM EDT [facility] [place] [address] [place] [address] MRI Report Signed Patient: Jair Bennett MR#: [id number] 669 : 1940 Acct:[id number] Age/Sex: 79 / M ADM Date: 09/04/20 Loc: MR Room: Type: [facility] CL Attending Dr: Param Cosme DPM Copies to: Param Cosme DPM Ordering Provider: Param Cosme DPM Date of Service: 09/04/20 MR/MR ankle RT wo con: right ankle injury;Laceration of muscle(s) and tendon(s) of ([id number]) XR/XR pre/post mri xray: S86.321A MRI right ankle and plain radiographs right ankle 09/04/2020. CLINICAL DATA: Lateral right ankle pain since twisting injury several months prior to exam. TECHNIQUE: MRI of the right ankle was performed. Two plain radiographs of the right ankle were obtained. COMPARISON: None. MRI FINDINGS: There is a tear of the anterior talofibular ligament. The posterior talofibular ligament is intact. The calcaneofibular ligament also appears intact. There is a small osteochondral injury at the tibial plafond anteriorly. The distal fibula, the calcaneus, and the cuboid appear intact. The anterior and posterior tibial tendons, the flexor and extensor tendons, the peroneus tendons, and the Achilles tendon appear intact. There is no tenosynovitis. Relatively mild arthritic changes are seen. PLAIN RADIOGRAPHS FINDINGS: No acute fracture or dislocation is identified. There are bony densities adjacent to the medial malleolus. These findings could be degenerative in nature or relate d to remote injury. There is plantar calcaneal spurring. No significant soft tissue swelling is noted. MR/MR ankle RT wo con Procedure Note Radiology, Radiologist, - 07/24/2024 [facility] [place] [address] [place], [place] [id number] MRI Report Signed Patient: Jair Bennett PMR#: [id number] [id number] : 1940Acct:[id number] Age/Sex: 79 / MADM Date: 09/04/20 Loc: Room:Type: [facility] Attending Dr: Param Cosme DPM Copies to: Param Cosme DPM Ordering Provider: Param Cosme DPM Date of Service: 09/04/20 MR/MR ankle RT wo con: right ankleinjury;Laceration of muscle(s) and tendon(s) of ([id number]) XR/XR pre/post mri xray: S86.321A MRI right ankle and plain radiographs right ankle 09/04/2020. CLINICAL DATA: Lateral right ankle pain since twisting injury severalmonths prior to exam. TECHNIQUE: MRI of the right ankle was performed. Two plain radiographs ofthe right ankle were obtained. COMPARISON: None. MRI FINDINGS: There is a tear of the anterior talofibular ligament. Theposterior talofibular ligament is intact. The calcaneofibular ligament also appears intact.There is a small osteochondral injury at the tibial plafond anteriorly. The distal fibula, the calcaneus,and the cuboid appear intact. The anterior and posterior tibial tendons, the flexor and extensortendons, the peroneus tendons, and the Achilles tendon appear intact. There is no tenosynovitis.Relatively mild arthritic changes are seen. PLAIN RADIOGRAPHS FINDINGS: No acute fracture or dislocation isidentified. There are bony densities adjacent to the medial malleolus. These findings could bedegenerative in nature or relate d to remote injury. There is plantar calcaneal spurring. No significantsoft tissue swelling is noted. MR/MR ankle RT wo con IMPRESSION: 1. Tear of the anterior talofibular ligament. 2. Small osteochondral injury at the tibial plafond anteriorly. 3. Relatively mild arthritic changes. 4. Plantar calcaneal spurring. Impression dictated by: Jair Vega Jr., M.D.09/05/2020 7:53 AM Dictation Location: [place] [address] Transcribed By: [facility] 09/05/20 0753 Dictated By: Jair Vega Jr, MD 09/04/20 0956 Signed By: <Electronically signed by Jair Vega Jr, MDin OV> 09/05/20 0753 Param Cosme DPAdrian IMG MRI PROCEDURES Final Re sult documented in this encounter Visit Diagnoses Not on filedocumented in this encounter Care Teams Chore Worker Relationship Specialty Start Date End Date Demetrius Mirza MD [address] [place] [address] PCP - General Family Medicine 01/26/24 Juan Corado MD Referring Physician Neurology 08/03/23 documented as of this encounter
--- OUTSIDE RECORDS SUMMARY | 2024-11-23 13:33 | XMS_ITS | Encounter Summary ---
Author Organization [facility] Address [address] [place] [address] Care Team Providers Care Kiln Stoker Name Role Phone Juan Corado MD Unavailable [phone] Demetrius Mirza MD Primary Care Provider Encounter Details Date Type Department Care Team (Late st Contact Info) Description 02/08/2023 Abstract [facility] [address] [place] [id number] Adrianna Rowell, DPM [address] [place] [address] Social History Tobacco Use Types Packs/Day Years [...] documented as of this encounter Visit Diagnoses Not on filedocumented in this encounter Care Teams Kiln Stoker Relationship Specialty Start Date End Date Demetrius Mirza MD [address] [place] [address] PCP - General Family Medicine 01/26/24 Juan Corado MD Referring Physician Neurology 08/03/23 documented as of this encounter
--- OUTSIDE RECORDS SUMMARY | 2024-11-23 13:33 | XMS_ITS | Encounter Summary ---
Author Organization [facility] Address [address] [place] [address] Care Team Providers Care Sound Engineering Technician Name Role Phone Juan Corado MD Unavailable [phone] Demetrius Mirza MD Primary Care Provider [phone] Encounter Details Date Type Department Care Team (Late st Contact Info) Description 06/22/2024 External Result Encounter [facility] External Department Unsolicited Matteo Melo MD [address] [facility] [address] [place] [address] Social History Tobacco Use Types Packs/Day Years [...] Procedure Name Priority Date/Time Associated Diagnosis Comments ECG 12-LEAD 06/22/2024 3:10 PM EST documented in this encounter Results * ECG 12 lead (06/22/2024 3:10 PM EST) 06/22/2024 3:[address] [facility] - 06/23/2024 3:17 PM EST [place] [address] [address] Electrocardiograph Report Signed Patient: Jair Bennett MR#: [id number] 669 : 1940 Acct:[id number] Age/Sex: 83 / M ADM Date: 06/22/24 Loc: PS [facility]: [facility] Dr: Matteo Melo MD Ordering Provider: [...] ECG No previous ECGs available Confirmed by JACK CASON, PRATIMA ([id number]) on 06/23/2024 3:17:12 PM Referred By: Electronically Signed By: PRATIMA ARENAS MD Transcribed By: MUS Signed By Pratima Arenas MD 0 06/23/24 7315 Procedure Note Pratima Arenas MD - 07/24/[address] [address] Electrocardiograph Report Signed Patient: Jair Bennett PMR#: [id number] [id number] : 1940Acct:[id number] Age/Sex: 83 / MADM Date: 06/22/24 Loc: PS Room:Type: [facility] CLI Attending Dr: Matteo Melo MD Ordering [...] ECG No previous ECGs available Confirmed by PRATIMA ARENAS MD ([id number]) on 06/23/2024 3:17:12 PM Referred By: Electronically Signed By: PRATIMA ARENAS MD Transcribed By: MUS Signed By Pratima Arenas MD0 06/23/24 3972 us Matteo Bell MD ECG ORDERABLES Edited Resul t - Final [facility] [address] [place] [address], documented in this encounter Visit Diagnoses Not on filedocumented in this encounter Care Teams Sound Engineering Technician Relationship Specialty Start Date End Date Demetrius Mirza MD [address] [place] [address] PCP - General Family Medicine 01/26/24 Juan Corado MD Referring Physician Neurology 08/03/23 documented as of this encounter
--- OUTSIDE RECORDS SUMMARY | 2024-11-23 13:33 | XMS_ITS | Encounter Summary ---
Author Organization [facility] Address [address] [place] [address] Care Team Providers Care Junction Maker Name Role Phone Juan Corado MD Unavailable [phone] Demetrius Mirza MD Primary Care Provider [phone] Encounter Details Date Type Department Care Team (Late st Contact Info) Description 12/22/2022 Abstract [facility] [address] [place] [phone] Adrianna Rowell, DPM [address] [place] [address] Social History Tobacco Use Types Packs/Day Years Used Date Smoking Tobacco: Former Cigarettes Passive Smoke Exposure: Past Tobacco Cessation:Counseling Given: Not Answered Comments:Years smoked: 25 Alcohol Use Standard Drinks/Week [...] on filedocumented in this encounter Care Teams Junction Maker Relationship Specialty Start Date End Date Demetrius Mirza MD [address] [place] [address] PCP - General Family Medicine 01/26/24 Juan Corado MD Referring Physician Neurology 08/03/23 documented as of this encounter
--- OUTSIDE RECORDS SUMMARY | 2024-11-23 13:33 | XMS_ITS | Encounter Summary ---
Author Organization [facility] Address [address] [place] [address] Care Team Providers Care Casting Operator Helper Name Role Phone Juan Corado MD Unavailable [phone] Demetrius Mirza MD Primary Care Provider Encounter Details Date Type Department Care Team (Late st Contact Info) Description 11/13/2024 External Result Encounter [facility] External Department Unsolicited Becky Crouch, TRIMMER BUFFING WHEEL [address] [place] [address] Social History Tobacco Use Types Packs/Day Years [...] Procedure Name Priority Date/Time Associated Diagnosis Comments PET/CT SKULL BASE TO MID THIGH 11/13/2024 3:39 PM EDT documented in this encounter Results * PET/CT skull base to mid thigh (11/13/2024 3:39 PM EDT) Anatomical Region Laterality Modality Body Computed Tomogra phy 11/13/2024 3:39 PM EDT Impressions 11/13/2024 3:52 PM EDT Negative PET CT. Impression dictated by: Mario Urias Jr., D.OAidan 11/13/2024 3:50 PM Dictation Location: [place] [address] Transcribed By: [facility] 11/13/24 1550 Dictated By: Mario Urias Jr, DO 11/13/24 1539 Signed By: <Electronically signed by Mario Urias Jr, DO in OV> 11/13/24 1550 Narrative 11/13/2024 3:52 PM EDT [facility] [place] [address] [place] [address] Nuclear Medicine Report Signed Patient: Jair Bennett MR#: [id number] 669 : 1940 Acct:[id number] Age/Sex: 84 / M ADM Date: 11/13/24 Loc: Room: Type: [facility] Attending Dr: Talib Faustin MD Copies to: Mario Urias Jr, DO Mary K Demboske, APRN Mhd Yaser Al-Marrawi, MD Norleena Poynter, MD Ordering Provider: Becky Crouch APRN Date of Service: 11/13/24 PET/PET tumor subq tx strat sb-mt: surveillance PET/CT FUSION IMAGING CLINICAL INFORMATION: Oropharynx cancer. COMPARISON : CT abdomen and pelvis 09/20/2024 TECHNIQUE: Noncontrasted CT scan from the base of the skull to the upper thigh followed by PET imaging. Multiplanar PET/CT fusion images. Blood Glucose : 114 mg/dL The F-18 FDG 11.15mCi. FINDINGS: Neck: No focal abnormal activity is seen. Chest:No focal abnormal activity. Abdomen/pelvis: No focal abnormal activity. Soft tissue/bones: No focal abnormal activity. CT findings: Right-sided port is in place. No pneumothorax. No pericardial or pleural effusions. No free air or free fluid. Colonic diverticulosis. Penile prosthesis is in place. G-tube is in place. PET/PET tumor subq tx strat sb-mt Procedure Note Mario Urias Jr., DO - 11/13/2024 [facility] [place] [address] [place] [address] Nuclear Medicine Report Signed Patient: Jair Bennett PMR#: [id number] 669 : 1940Acct:[id number] Age/Sex: 84 / MADM Date: 11/13/24 Loc: Room:Type: [facility] Attending Dr: Talib Faustin MD Copies to: Mario Urias Jr, DO Mary K Demboske, APRN Mhd Yaser Al-Marrawi, MD Norleena Poynter, MD Ordering Provider: Becky Crouch APRN Date of Service: 11/13/24 PET/PET tumor subq tx strat sb-mt: surveillance PET/CT FUSION IMAGING CLINICAL INFORMATION: Oropharynx cancer. COMPARISON : CT abdomen and pelvis 09/20/2024 TECHNIQUE: Noncontrasted CT scan from the base of the skull to the upperthigh followed by PET imaging. Multiplanar PET/CT fusion images. Blood Glucose : 114 mg/dL The F-18 FDG 11.15mCi. FINDINGS: Neck: No focal abnormal activity is seen. Chest:No focal abnormal activity. Abdomen/pelvis: No focal abnormal activity. Soft tissue/bones: No focal abnormal activity. CT findings: Right-sided port is in place. No pneumothorax. Nopericardial or pleural effusions. No free air or free fluid. Colonic diverticulosis. Penile prosthesis isin place. G-tube is in place. PET/PET tumor subq tx strat sb-mt IMPRESSION: Negative PET CT. Impression dictated by: Mario Urias Jr., D.O. 11/13/2024 3:50 PM Dictation Location: [place] [address] Transcribed By: [facility] 11/13/24 1550 Dictated By: Mario Urias Jr, DO 11/13/24 1532 Signed By: <Electronically signed by Mario Urias Jr, DO inOV> 11/13/24 1550 Becky Crouch TRIMMER BUFFING WHEEL IMG CT PROCEDURES Final Resul t documented in this encounter Visit Diagnoses Not on filedocumented in this encounter Care Teams Casting Operator Helper Relationship Specialty Start Date End Date Demetrius Mirza MD [address] [place] [address] PCP - General Family Medicine 01/26/24 Juan Corado MD Referring Physician Neurology 08/03/23 documented as of this encounter
--- OUTSIDE RECORDS SUMMARY | 2024-11-23 13:33 | XMS_ITS | Encounter Summary ---
Author Organization [facility] Address [address] [place] [address] Care Team Providers Care Job Boss Name Role Phone Juan Corado MD Unavailable [phone] Demetrius Mirza MD Primary Care Provider [phone] Encounter Details Date Type Department Care Team (Late st Contact Info) Description 03/06/2024 Orders Only [facility] [address] [place] [address] Consuelo Mcghee MD [address] [place] [address] Social History Tobacco Use Types Packs/Day Years [...] Procedure Name Priority Date/Time Associated Diagnosis Comments GENERAL PATHOLOGY Routine 03/01/2024 9:21 AM EDT documented in this encounter Results * GENERAL PATHOLOGY (03/01/2024 9:21 AM EDT) Consuelo Mcghee MD [facility] Final Result documented in this encounter Visit Diagnoses Not on filedocumented in this encounter Care Teams Job Boss Relationship Specialty Start Date End Date Demetrius Mirza MD [address] [place] [address] PCP - General Family Medicine 01/26/24 Juan Corado MD Referring Physician Neurology 08/03/23 documented as of this encounter
--- OUTSIDE RECORDS SUMMARY | 2024-11-23 13:33 | XMS_ITS | Encounter Summary ---
Author Organization [facility] Address [address] [place] [address] Care Team Providers Care Distillation Operator Helper Name Role Phone Juan Corado MD Unavailable [phone] Sabino Cooper MD Primary Care Provider [phone] Encounter Details Date Type Department Care Team (Late st Contact Info) Description 02/29/2024 Clinisync Result Encounter [facility] External Department Unsolicited Consuelo Mcghee MD [address] [place] [address] Social History Tobacco Use Types Packs/Day Years [...] Procedure Name Priority Date/Time Associated Diagnosis Comments US BIOPSY LYMPH NODE 02/29/2024 12:52 PM EDT documented in this encounter Results * US BIOPSY LYMPH NODE (02/29/2024 12:52 PM EDT) Anatomical Region Laterality Modality Radiographic Tonia ging 02/29/2024 12:5 2 PM EDT Narrative 02/29/2024 12:54 PM EDT [address] [address] Ultrasound Report Signed Patient: JEREMIE GROSS MR#: [id number] : 1940 Acct:[id number] Age/Sex: 83 / M ADM Date: 02/29/24 Loc: US Attending Dr: Consuelo Mcghee M.D. Ordering Physician: Consuelo Mcghee M.D. Date of Service: 02/29/24 Procedure(s): US biopsy lymph node Accession Number(s): [id number] cc: SABINO COOPER ; Consuelo Mcghee M.D. [address] [address] Patient Name: JEREMIE GROSS MRN: [id number] date: 1940 Sex: M Assigned Patient Location: US Current Patient Location: Accession/Order Number: [id number] Exam Date: 02/29/2024 08:55 Report Date: 02/29/2024 12:52 At the request of: CONSUELO MCGHEE Procedure: US biopsy lymph node EXAMINATION: US biopsy lymph node HISTORY: Neck Mass COMPARISON: No relevant comparison available. TECHNIQUE: After obtaining informed consent, ultrasound-guided fine needle aspiration was performed in the usual sterile manner. FINDINGS: IMAGING: Ultrasound. BIOPSY NEEDLE: 20-gauge Temno spring loaded core biopsy needle with an 18-gauge 6 cm by LOCATION: Round 1.4 cm right neck mass/lymph node SPECIMEN TYPE: 3 core samples LOCAL ANESTHETIC: 4 cc 1% buffered lidocaine COMPLICATIONS: None. LABORATORY: Prepared slide smears and washings for cell block evaluation. OTHER: Negative. PATHOLOGY: Pending. An addendum will be added when results are available. US/US biopsy lymph node IMPRESSION: 1. Uneventful ultrasound guided core biopsy 2. Pathology results are pending. Electronically authenticated by: ERWIN FALCON Date: 02/29/2024 12:52 Dictated By: Erwin Falcon M.D. Signed By: 02/29/24 1253 DD/ 1252 TD/TT: Manager Data: Procedure Note Radiology, Radiologist, MD - 02/29/[address] [address] Ultrasound Report Signed Patient: JEREMIE GROSS PMR#: [id number] : 1940Acct:[id number] Age/Sex: 83 / MADM Date: 02/29/24 Loc: US Attending Dr: Consuelo Mcghee M.D. Ordering Physician: Consuelo Mcghee M.D. Date of Service: 02/29/24 Procedure(s): US biopsy lymph node Accession Number(s): [id number] cc: SABINO COOPER ; Consuelo Mcghee M.D. The [address] [address] Patient Name: JEREMIE GROSS MRN: [id number] date: 1940 Sex: M Assigned Patient Location: US Current Patient Location: Accession/Order Number: [id number] Exam Date: 02/29/2024 08:55 Report Date: 02/29/2024 12:52 At the request of: CONSUELO MCGHEE Procedure: US biopsy lymph node EXAMINATION: US biopsy lymph node HISTORY: Neck Mass COMPARISON: No relevant comparison available. TECHNIQUE: After obtaining informed consent, ultrasound-guided fine needle aspiration was performed in the usual sterile manner. FINDINGS: IMAGING: Ultrasound. BIOPSY NEEDLE: 20-gauge Temno spring loaded core biopsy needle with an 18-gauge 6 cm by LOCATION: Round 1.4 cm right neck mass/lymph node SPECIMEN TYPE: 3 core samples LOCAL ANESTHETIC: 4 cc 1% buffered lidocaine COMPLICATIONS: None. LABORATORY: Prepared slide smears and washings for cell block evaluation. OTHER: Negative. PATHOLOGY: Pending. An addendum will be added when results are available. US/US biopsy lymph node IMPRESSION: 1. Uneventful ultrasound guided core biopsy 2. Pathology results are pending. Electronically authenticated by: ERWIN FALCON Date: 02/29/2024 12:52 Dictated By: Erwin Falcon M.D. Signed By:02/29/24 1255 DD/ 1252 TD/TT: Manager Data: us Consuelo Mcghee MD IMG XR PROCEDURES Final Resul t documented in this encounter Visit Diagnoses Not on filedocumented in this encounter Care Teams Distillation Operator Helper Relationship Specialty Start Date End Date Sabino Cooper MD [address] [place] [address] PCP - General Family Medicine 01/26/24 Juan Corado MD Referring Physician Neurology 08/03/23 documented as of this encounter
--- OUTSIDE RECORDS SUMMARY | 2024-11-23 13:33 | XMS_ITS | Encounter Summary ---
Author Organization [facility] Address [address] [place] [address] Care Team Providers Care Farmer Tree Fruit And Nut Crops Name Role Phone Juan Corado MD Unavailable [phone] Demetrius Mirza MD Primary Care Provider [phone] Encounter Details Date Type Department Care Team (Late st Contact Info) Description 01/27/2024 Abstract [facility] [address] [facility] [address] [place] [address] Jenni Richardson, BORIS [address] [facility] [address] [place] [address] Social History Tobacco Use Types Packs/Day Years [...] on filedocumented in this encounter Care Teams Farmer Tree [employer] Relationship Specialty Start Date End Date Demetrius Mirza MD [address] [place] [address] PCP - General Family Medicine 01/26/24 Juan Corado MD Referring Physician Neurology 08/03/23 documented as of this encounter
--- OUTSIDE RECORDS SUMMARY | 2024-11-23 13:34 | XMS_ITS | Encounter Summary ---
Author Organization [facility] Address [address] [place] [address] Care Team Providers Care Volleyball Referee Name Role Phone Demetrius Mirza MD Primary Care Provider [phone] Reason for Visit * Reason Comments Med Refill Encounter Details Date Type Department Care Team (Late Contact Info) Description 08/05/2023 Refill [facility] Cardiology [address] [place] [phone] Bobbi Purcell, GREG [address] [place] [address] Hypertension, unspecified type Social History Tobacco Use Types Packs/Day Years Used Date Smoking Tobacco: Former Cigarettes Q uit: 1984 Smokeless Tobacco: Never Alcohol Use Standard Drinks/Week Comments Yes 0 (1 standard drink = 0.6 oz pur e alcohol) OCCASIONAL [place] Safety & Environment Answer Date Rec orded Fear of Current or Ex-Partner Not on file Emotionally Abused Not on file 07/08/2023 Physically Abused Not on file 07/08/2023 Sexually Abused Not on file 07/08/2023 Physically or Sexually Abused Not on file Sex and Gender Information Value Date Recorded Sex Assigned at Not on file Legal Sex Male 12:17 AM EDT Gender Identity Not on file Sexual Orientation Not on file documented as of this encounter Plan of Treatment Upcoming Encounters Date Type Department Care Team (Late Contact Info) Description 12/05/2024 1:30 PM EDT Office Visit [facility] [address] [place] [address] Daniel Brunner MD [address] [place] [address] documented as of this encounter Visit Diagnoses Diagnosis Hypertension, unspecified type documented in this encounter Care Teams Volleyball Referee Relationship Specialty Start Date End Date Demetrius Mirza MD [address] [place] [address] PCP - General Family Medicine 11/10/22 documented as of this encounter
--- OUTSIDE RECORDS SUMMARY | 2024-11-23 13:34 | XMS_ITS | Encounter Summary ---
Author Organization [facility] Address [address] [place] [address] Phone Care Team Providers Care Java Security Architect Name Role Phone Demetrius Mirza MD Primary Care Provider Encounter Details Date Type Department Care Team (Late st Contact Info) Description 01/27/2023 Scanned Document [facility] [address] [place] [place] [address] Conversion, Onbase Social History Tobacco Use Types Packs/Day Years Used Date Smoking Tobacco: Never Assessed Sex and Gender Information Value Date Recorded Sex Assigned at Not on file Legal Sex Male 9:24 AM EST Gender Identity Male 05/11/2024 5:56 AM EST Sexual Orientation Straight 05/11/2024 5: 56 AM EST documented as of this encounter Plan of Treatment Upcoming Encounters Date Type Department Care Team (Late st Contact Info) Description 12/11/2024 1:45 PM EDT Office Visit [facility] [address] [place] [address] [place] [address] [place], [place] [id number] documented as of this encounter Procedures Procedure Name Priority Date/Time Associated Diagnosis Comments OUTSIDE GENERIC TESTING 01/27/2023 documented in this encounter Results * OUTSIDE GENERIC TESTING (01/27/2023) Anatomical Region Laterality Modality Other Narrative 01/27/2023 Ordered by an unspecified provider. us Onbase Conversion OUTSIDE SCAN Final Result documented in this encounter Visit Diagnoses Not on filedocumented in this encounter Care Teams Java Security Architect Relationship Specialty Start Date End Date Demetrius Mirza MD [address] [facility] [place] [address] PCP - General Family Medicine 04/11/24 documented as of this encounter
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
--- OUTSIDE RECORDS SUMMARY | 2024-11-23 13:34 | XMS_ITS | Encounter Summary ---
Author Organization [facility] Address [address] [place] [address] Care Team Providers Care Pier Master Assistant Name Role Phone Demetrius Mirza MD Primary Care Provider [phone] Reason for Visit * Reason Comments Med Refill Encounter Details Date Type Department Care Team (Late st Contact Info) Description 02/23/2023 Refill [place] [address] [place] [address] Margaret Arellano MD [address] [facility] [address] [facility] [place] [phone] Coronary artery disease due to lipid rich plaque Social History Tobacco Use Types Packs/Day Years Used Date Smoking Tobacco: Former Cigarettes Q uit: 1984 Smokeless Tobacco: Never Alcohol Use Standard Drinks/Week Comments Yes 0 (1 standard drink = 0.6 oz pur e alcohol) OCCASIONAL Sex and Gender Information Value Date Recorded Sex Assigned at Not on file Legal Sex Male 12:17 AM EDT Gender Identity Not on file Sexual Orientation Not on file documented as of this encounter Plan of Treatment Upcoming Encounters Date Type Department Care Team (Late st Contact Info) Description 12/05/2024 1:30 PM EDT Office Visit [facility] [address] [place] [address] Daniel Brunner MD [address] [place] [phone] documented as of this encounter Visit Diagnoses Diagnosis Coronary artery disease due to lipid rich plaque documented in this encounter Care Teams Pier Master Assistant Relationship Specialty Start Date End Date Demetrius Mirza MD [address] [place] [address] PCP - General Family Medicine 11/10/22 documented as of this encounter
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
--- OUTSIDE RECORDS SUMMARY | 2024-11-23 13:34 | XMS_ITS | Encounter Summary ---
Author Organization [facility] Address [address] [place] [address] Care Team Providers Care Supplemental Nurse Name Role Phone Demetrius Mirza MD Primary Care Provider Reason for Visit * Reason Comments Med Refill Encounter Details Date Type Department Care Team (Late Contact Info) Description 07/29/2023 Refill [facility] [address] [place] [address] Margaret Arellano MD [address] [facility] [address] [facility] [place] [phone] Mitral valve insufficiency, unspecified etiology; Hypertension, unspecified type Social History Tobacco Use [...] Description 12/05/2024 1:30 PM EDT Office Visit [facility] [address] [place] [address] Daniel Brunner MD [address] [place] [address] documented as of this encounter Visit Diagnoses Diagnosis Mitral valve insufficiency, unspecified etiology Hypertension, unspecified type documented in this encounter Care Teams Supplemental Nurse Relationship Specialty Start Date End Date Demetrius Mirza MD [address] [place] [phone] PCP - General Family Medicine 11/10/22 documented as of this encounter
--- OUTSIDE RECORDS SUMMARY | 2024-11-23 13:34 | XMS_ITS | Clinical Summary ---
Author Organization [facility] Address [address] [place] [address] Care Team Providers Care Supervisor Inspection And Testing Name Role Phone Juan Corado MD Unavailable [phone] Demetrius Mirza MD Primary Care Provider [phone] Allergies Active Allergy Reactions Criticality Noted Date Comments Niacin Itching,Unknown 01/19/2019 Wound Dressing Adhesive Unknown 12/24/2022 Medications isosorbide mononitrate ER (Imdur) 30 MG 24 hr tablet Take 30 mg by mouth Daily Do not crush or chew. Active clopidogrel (Plavix) 75 MG tablet Take 75 mg by mouth Daily Active fluticasone (Flonase) 50 MCG/ACT nasal spray Administer 1 spray into each nostril Daily Shake gently. Before first use, prime pump. After use, clean tip and replace cap. Active omeprazole (PriLOSEC) [address] capsule Take 40 mg by mouth in the morning. Take before meals. Do not crush or chew. . Active amLODIPine (Norvasc) 5 MG tablet Take 5 mg by mouth Daily Active irbesartan (Avapro) 300 MG tablet Take 300 mg by mouth at bedtime Active sotalol (Betapace) 80 MG tablet Take 80 mg by mouth Active rosuvastatin (Crestor) 10 MG tablet Take 10 mg by mouth Daily Active latanoprost (Xalatan) 0.005 % ophthalmic solution 1 drop at bedtime Active dorzolamide (Trusopt) 2 % ophthalmic solution 1 drop in the morning and 1 drop in the evening and 1 drop before bedtime. Active glucose blood test strip 1 each by Other route if needed Use as instructed Active Lancets (onetouch ultrasoft) lancets 1 each by Other route if needed Use as instructed Active loperamide (Imodium A-D) 2 MG tablet Take 2 mg by mouth as needed in the morning and 2 mg as needed at noon and 2 mg as needed in the evening and 2 mg as needed before bedtime for diarrhea. Active Multiple Vitamin (multivitamin) tablet Take 1 tablet by mouth Daily Active diphenhydrAMINE-a cetaminophen (Tylenol PM) 25-500 MG per tablet Take 1 tablet by mouth as needed at bedtime for sleep Active aspirin 81 MG EC tablet Take 81 mg by mouth Daily Active omega-3 acid ethyl esters (Lovaza) 1 g capsule Take 1 g by mouth in the morning and 1 g before bedtime. Active famotidine (Pepcid) 20 MG tablet Take 20 mg by mouth Daily Active psyllium (Metamucil 3 in 1 Daily Fiber) 400 MG capsule Take 3 capsules by mouth Daily 3 Active tiZANidine (Zanaflex) 4 MG tabletIndications :Chronic bilateral low back pain, unspecified whether sciatica present TAKE 1/2 TO 1 TABLET BY MOUTH AT BEDTIME 90 tablet 2 4 Active Rimegepant Sulfate (Nurtec) 75 MG tablet dispersibleIndica tions:Migraine without aura and without status migrainosus, not intractable 1 tab PO prn migraine. 16 tablet 2 4 Active furosemide (Lasix) 20 MG tabletIndications :Peripheral venous insufficiency TAKE 1 TABLET BY MOUTH DAILY 100 tablet 2 4 Active metFORMIN XR (Glucophage-XR) 500 MG 24 hr tabletIndications :Type 2 diabetes mellitus with hyperglycemia, without long-term current use of insulin (HCC) TAKE 1 TABLET BY MOUTH TWICE DAILY 200 tablet 2 4 Active zonisamide (Zonegran) 25 MG capsuleIndication s:Cervical radiculopathy TAKE 1 CAPSULE BY MOUTH TWICE DAILY 200 capsule 2 5 Active oxyCODONE (Roxicodone) 5 MG/5ML solution 5 Active OLANZapine (ZyPREXA) 2.5 MG tablet Take 5 mg by mouth at bedtime Active Active Problems Problem Noted Date Diagnosed [...] History of malignant neoplasm of prostate 2021 TULALIP (hard of hearing) 04/03/2022 Overview (01/27/2024): Hearing Aids Hearing Aids Hypercholesterolemia 04/03/2022 Hyperlipidemia 04/03/2022 Overview (01/27/2024): crestor , [place] 3 guillerminaor Rajiv 3 Last Assessment & Plan: 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 Continue crestor Insomnia 04/03/2022 Overview (01/27/2024): ambien ambien Migraines 04/03/2022 Overview (01/27/2024): fioricet with codiene, depakote fioricet with codiene, depakote Neuropathy 04/03/2022 Overview (01/27/2024): feet / DM / gabapentin feet / DM / gabapentin NPH (normal pressure hydrocephalus) 04/03/2022 Overview (01/27/2024): gm/svp global publisher business shunt gm/svp global publisher business shunt Obstructive sleep apnea 04/03/2022 Osteoarthritis 04/03/2022 [...] exercise as tolerated and continue all medications. Resolved Problems Problem Noted Date Diagnosed Date [...] 04/03/2022 01/27/2024 Right flank pain 04/03/2022 01/27/2024 Encounters Date Type Department Care Team Description 11/13/2024 External Result Encounter [facility] External Department Unsolicited Becky Crouch NP 10/11/2024 2:15 PM EDT Office Visit [facility] [address] [facility] [address] [place] [phone] Mulugeta Ross DO Esophageal dysphagia (Primary Dx); Carcinoma of oropharynx (HCC) 10/11/2024 Travel 10/03/2024 External Result Encounter [facility] External Department Unsolicited Mulugeta Ross DO 09/28/2024 2:00 PM EDT Office Visit [facility] [address] [place] [phone] Missy Westfall PA Vertigo (Primary Dx); Lumbar radiculopathy; Chronic bilateral low back pain, unspecified whether sciatica present; Degenerative disc disease, cervical; Migraine without aura and without status migrainosus, not intractable ; Polyneuropathy 09/28/2024 Bamboo flowsheet [facility] [address] [place], [place] [address], [place] [address] Missy Westfall PA 09/28/2024 Travel 09/27/2024 1:30 PM EDT Consult [facility] [address] [place] [address] Mulugeta Ross DO Esophageal dysphagia (Primary Dx) 09/27/2024 Travel from Last 3 Months Immunizations Immunization Administration Dates Next Due Influenza, High Dose Seasona l, Preservative Free 01/31/2019 Influenza, Unspecified 02/18/2021,02/14/2020,12/2017 Influenza, injectable, MDCK, preservative free, quadrivalent 02/18/2021,02/14/2020 Influenza, injectable, quadrivalent 01/22/2018 Alesha SARS-CoV-2 06/27/2020,06/06/2020 Pfizer Haque Cap SARS-CoV-2 Vaccination 11/25/2021 Pfizer Purple Cap SARS-CoV-2 Vaccination 03/06/2021,06/27/2020,06/06/2020 Pneumococcal Conjugate PCV 13 01/30/2014 Pneumococcal Conjugate PCV 7 01/30/2014 SARS-CoV-2, Unspecified 11/25/2021,11/25,03/06/2021,2020,06/06/2020 Family History Medical History Relation Name Comments Cancer Father Daniel Bennett prostate problem Father Daniel Bennett Heart disease Maternal Grandmother Claire Edwards Hyperlipidemia Maternal Grandmother Claire Edwards Hypertension Maternal Grandmother Claire Edwards Asthma Mother Estee Bennett Heart disease Mother Estee Bennett Hypertension Mother Estee Bennett Kidney disease Mother Estee Bennett Migraines Mother Estee Bennett Stroke Mother Estee Bennett Cancer Paternal Grandfather Fidel Bennett stomach problem Paternal Grandfather Fidel Bennett Relation Name Status Comments Father Daniel Bennett Maternal Grandmother Claire Edwards Mother Estee Bennett Paternal Grandfather Fidel Bennett Social History Tobacco Use Types Packs/Day Years [...] Sign Reading Time Taken Comments Blood Pressure 110/68 09/28/2024 1:47 PM EDT Pulse - - Temperature - - Respiratory Rate - - Oxygen Saturation - - Inhaled Oxygen Concentration - - Weight 67.1 kg (148 lb) 10/11/2024 1:56 PM EDT Height 165.1 cm (5' 5 ) 10/11/2024 1:56 PM EDT Body Mass Index 24.63 10/11/2024 1:56 PM EDT Plan of Treatment Health Maintenance Due Date Last Done Comments Influenza Vaccine (#1) 2025 , 04/12/2023, 02/18/2021, Additional history exists Pneumococcal Vaccine: 65+ Years Completed 11/22/2023, 01/30/2014, 01/30/2014 Medical Devices Implanted Type Area Environmental Education Specialist Device Identifier Shelf Expiration Date Model / Serial / Lot Cardiac Pacemaker Cardiac Pacemaker Chest Procedures Procedure Name Priority Date/Time Associated Diagnosis Comments PET/CT SKULL BASE TO MID THIGH 11/13/2024 3:39 PM EDT GLUCOSE POCT GLUCOMETERS Routine 10/03/2024 10:36 AM EDT from Last 3 Months Results * PET/CT skull base to mid thigh (11/13/2024 3:39 PM EDT) Anatomical Region Laterality Modality Body Computed Tomogra phy 11/13/2024 3:39 PM EDT Impressions 11/13/2024 3:[address]T Negative PET [address] Impression dictated by: Mario Urias Jr., D.O. 11/13/2024 3:50 PM Dictation Location: [place] [address] Transcribed By: PERLA 11/13/24 2405 Dictated By: Mario Urias Jr, DO 11/13/24 1533 Signed By: <Electronically signed by Mario Urias Jr, DO in OV> 11/13/24 1550 Narrative 11/13/2024 3:52 PM EDT [facility] [address] [place] [address] [place] [id number] Nuclear Medicine Report Signed Patient: Jair Bennett MR#: [id number] : 1940 Acct:[id number] Age/Sex: 84 / M ADM Date: 11/13/24 Loc: PE Room: Type: REG RCR Attending Dr: Talib Faustin MD Copies to: Mario Urias Jr, DO Becky Crouch, MD Dennis Henry MD Ordering Provider: Becky Crouch APRN Date [...] Note Mario Urias Jr., DO - 11/13/2024 [facility] Main [place] [id number] Nuclear Medicine Report Signed Patient: Jair Bennett PMR#: [id number] : 1940Acct:[id number] Age/Sex: 84 / MADM Date: 11/13/24 Loc: PE Room:Type: REG RCR Attending Dr: Talib Faustin MD Copies to: [...] Jr., D.OAidan 11/13/2024 3:50 PM Dictation Location: [place] [address] Transcribed By: [facility] 11/13/24 1550 Dictated By: Mario Urias Jr, DO 11/13/24 1539 Signed By: <Electronically signed by Mario Urias Jr, DO inOV> 11/13/24 1550 Becky Crouch HEALTH POLICY NURSE IMG CT PROCEDURES Final Resul t * GLUCOSE POCT GLUCOMETERS (10/03/2024 10:36 AM EDT) [facility] GLUCOSE POC GLUCOMETERS 103 mg/dL 10/03/2024 10:44 AM [facility] Comment: Random Glucose Reference Range is dependent on time and content of last meal. Glucose of more than 200 mg/dL in a nonstressed, ambulatory subject supports the diagnosis of Diabetes Mellitus. COMMEMT1 Glu2: Cleaned Meter 10/03/2024 10:44 AM [facility] Blood (Blood) 10/03/2024 10: 36 AM EDT 10/03/2024 10:43 AM EDT us Mulugeta Ross DO LAB BLOOD ORDERABLES Reyna escalante Result [facility] [address] [place] [address], [place] from Last 3 Months Insurance [employer] Care Teams Supervisor Inspection And Testing Relationship Specialty Start Date End Date Demetrius Mirza MD [address] [place] [phone] PCP - General Family Medicine 01/26/24 Juan Corado MD Referring Physician Neurology 08/03/23
--- OUTSIDE RECORDS SUMMARY | 2024-11-23 13:34 | XMS_ITS | Clinical Summary ---
Author Organization [facility] Address [facility] [place] [address] Care Team Providers Care Trainer Name Role Phone Anjali Ruby CNP Unavailable [phone] Consuelo Mcghee MD Unavailable Demetrius Mirza MD Primary Care Provider [phone] Allergies Active Allergy Reactions Criticality Noted Date Comments Adhesive Tape-Silicones Rash 01/19/2019 Niacin Itching,Unknown 01/19/2019 Medications isosorbide mononitrate ER (IMDUR) 30 mg 24 hr tablet Take 30 mg by mouth. 09/01/19 23 Active clopidogrel (PLAVIX) 75 mg tablet 02/28/20 23 Active furosemide (LASIX) 20 mg tablet Take 20 mg by mouth. 04/24/20 20 Active fluticasone (FLONASE) 50 mcg/actuation nasal spray 1 [place]. 08/25/19 23 Active omeprazole (PRILOSEC) 40 mg capsule Take 40 mg by mouth. 01/07/20 23 Active amLODIPine (NORVASC) 5 mg tablet Take 5 mg by mouth. 04/24/20 20 Active irbesartan (AVAPRO) 300 mg tablet Take 300 mg by mouth. 04/24/20 20 Active sotalol (BETAPACE) 80 mg tablet Take 80 mg by mouth. 04/24/20 20 Active metFORMIN (GLUCOPHAGE) 500 mg tablet Take 500 mg by mouth. Active rosuvastatin (CRESTOR) 10 mg tablet Take 10 mg by mouth. 11/11/19 23 Active tiZANidine HCl (ZANAFLEX) 4 mg capsule Take 4 mg by mouth. Active zonisamide (ZONEGRAN) 25 mg capsule 03/23/20 23 Active latanoprost (XALATAN) 0.005 % ophthalmic solution 1 Drop daily at bedtime. Active sucralfate (CARAFATE) 1 gram tablet Take 1 g by mouth. 12/16/19 23 Active loperamide HCl (IMODIUM) 2 mg tab Take 2 mg by mouth. 02/22/20 21 Active gabapentin (NEURONTIN) 600 mg tablet Take 1 tablet by mouth. Active zolpidem (AMBIEN) 5 mg tablet Take 5 mg by mouth. Active glimepiride (AMARYL) 2 mg tablet Take 2 mg by mouth. 01/20/20 19 Active aspirin, enteric coated (ASPIRIN, ENTERIC COATED) 81 mg EC tablet Take 81 mg by mouth. Active acetaminophen 325 mg-caffeine 40 mg-butalbital 50 mg (FIORICET) per tablet Take 1 tablet by mouth every 4 hours as needed. 12/16/19 23 Active iv contrast (will be provided with radiology test)Indication s:IPMN (intraductal papillary mucinous neoplasm) MRI PANC/DEANNE Inject, [...] MR contrast administration guidelines link. 1 Each 02/01/20 24 Active Social History Tobacco Use Types Packs/Day Years Used Date Smoking Tobacco: Former Cigarettes Smokeless Tobacco: Never Area Deprivation Index Answer Date Wesley rded National Score (1-100), lower number is lower ri sk 74 04/01/2023 State Score (1-10), lower number is lower risk 6 04/01/2023 Data from: https://www.neighborhoodatlas.medicine.[facility].edu/. Last address used for calculation [address] 04/01/2023 Sex and Gender Information Value Date Recorded Sex Assigned at Not on file Legal Sex Male 7:42 AM EDT Gender Identity Not on file Sexual Orientation Not on file Last Filed Vital Signs Vital Sign Reading Time Taken Comments Blood Pressure 109/66 04/01/2023 1:15 PM EST Pulse 70 04/01/2023 1:15 PM EST Temperature 36.2 C (97.1 F) 04/01/2023 1:15 PM EST Respiratory Rate - - Oxygen Saturation 97% 04/01/2023 1:15 PM EST Inhaled Oxygen Concentration - - Weight 75.8 kg (167 lb) 04/01/2023 1:15 PM EST Height - - Body Mass Index - - Plan of Treatment Health Maintenance Due Date Last Done Comments Anxiety Screening 10/29/1958 Depression Screening 10/29/1958 DTaP,Tdap,Td Vaccine (1 - Tdap) 10/29/1958 Diabetes Screening 10/29/1984 RSV Vaccine (1 - 1-dose 75+ series) 10/29/2014 Covid-19 Vaccine (2023-2 5 season) 2024 04/28/2023, 11/25/2021, 03/06/2021, Additional history exists Advance Directive Discussion 05/17/2024 Medicare Advantage Annual We [facility] Visit 05/17/2024 Influenza Vaccine (#1) 2025 3, 02/18/2021, 02/14/2020, Additional history exists Pneumococcal Vaccine: 50+ Completed 11/22/2023, Shingrix Vaccine Completed 02/09/2024, 11/22/2023 Insurance Care Teams Trainer Relationship Specialty Start Date End Date Demetrius Mirza MD [address] [place] [address] PCP - General Family Medicine 03/27/24 Anjali Ruby, MECHANICAL INTEGRITY SPECIALIST [address] [place] [address] Referring Family Medicine 03/03/23 Consuelo Mcghee MD [address] [phone] Ent - Otolaryngology 03/10/24
--- OUTSIDE RECORDS SUMMARY | 2024-11-23 13:34 | XMS_ITS | Encounter Summary ---
Author Organization [facility] Address [address] [place] [address] Care Team Providers Care Flexo Press Operator Name Role Phone Juan Corado MD Unavailable [phone] Demetrius Mirza MD Primary Care Provider [phone] Encounter Details Date Type Department Care Team (Late st Contact Info) Description 03/10/2024 Orders Only [facility] [address] [place] [address] Consuelo Mcghee MD [address] [facility] [address] [place] [address] Social History Tobacco Use Types Packs/Day Years [...] Name Priority Date/Time Associated Diagnosis Comments US NEEDLE GUIDED BIOPSY Routine 03/01/2024 7:44 AM EDT documented in this encounter Results * US NEEDLE GUIDED BIOPSY (03/01/2024 7:44 AM EDT) Anatomical Region Laterality Modality Radiographic Tonia ging Consuelo Mcghee MD IMG XR PROCEDURES Final Resul t documented in this encounter Visit Diagnoses Not on filedocumented in this encounter Care Teams Flexo Press Operator Relationship Specialty Start Date End Date Demetrius Mirza MD [address] [place] [address] PCP - General Family Medicine 01/26/24 Juan Corado MD Referring Physician Neurology 08/03/23 documented as of this encounter
--- OUTSIDE RECORDS SUMMARY | 2024-11-23 13:34 | XMS_ITS | Encounter Summary ---
Author Organization [facility] Address [address] [place] [address] Care Team Providers Care Break Out Man Name Role Phone Mg Jack MD Primary Care Provider [phone] Demetrius Mirza MD Primary Care Provider [phone] Reason for Visit * Reason Comments Med Refill Encounter Details Date Type Department Care Team (Late st Contact Info) Description 03/14/2022 Refill [facility] [address] [place] [address] Margaret Arellano MD [address] [facility] [place] [address] [place] [address] Hypertension, unspecified type (Primary Dx); Mitral valve insufficiency, unspecified etiology Social History Tobacco Use Types Packs/Day Years Used Date Smoking Tobacco: Former Cigarettes Smokeless Tobacco: Never Alcohol Use Standard Drinks/Week [...] Description 12/05/2024 1:30 PM EDT Office Visit [facility] [address] [place] [address] Daniel Brunner MD [address] [place] [phone] documented as of this encounter Visit Diagnoses Diagnosis Hypertension, unspecified type- Primary Mitral valve insufficiency, unspecified etiology documented in this encounter Care Teams Break Out Man Relationship Specialty Start Date End Date Mg Jack MD [address] [place] [address] PCP - General 01/17/22 11/09/22 Demetrius Mirza MD [address] [place] [address] PCP - General Family Medicine 11/10/22 documented as of this encounter
--- OUTSIDE RECORDS SUMMARY | 2024-11-23 13:34 | XMS_ITS | Encounter Summary ---
Author Organization [facility] Address [address] [place] [address] Care Team Providers Care Pharmaceutical Officer Name Role Phone Demetrius Mirza MD Primary Care Provider [phone] Reason for Visit * Reason Comments Med Refill Encounter Details Date Type Department Care Team (Late st Contact Info) Description 06/04/2023 Refill [facility] Card[facility] Clinic [address] [place] [phone] Margaret Arellano MD [address] [facility] [place] [address] [facility] [place] [address] Chest pain, unspecified type Social History Tobacco Use Types [...] Description 12/05/2024 1:30 PM EDT Office Visit [facility] [address] [place] [address] Daniel Brunner MD [address] [place] [address] documented as of this encounter Visit Diagnoses Diagnosis Chest pain, unspecified type documented in this encounter Care Teams Pharmaceutical Officer Relationship Specialty Start Date End Date Demetrius Mirza MD [address] [id number] PCP - General Family Medicine 11/10/22 documented as of this encounter
--- OUTSIDE RECORDS SUMMARY | 2024-11-23 13:34 | XMS_ITS | Patient Health Record ---
Author Organization [facility] [place] Address [address] [place] [address] Care Team Providers Care Senior Coldfusion Developer Name Role Phone Mg Jack MD Primary Care Provider Susana Love Unavailable [phone] Allergies Allergen (clinical drug ingredient) Drug/Non Drug Allergy documented on EMR Reaction Allergy Type Onset Date Status Niaspan Unknown Drug Allergy Active Adhesive Unknown Allergy Active Reason For Referral No Information Medications Medication SIG (Take, Route, Frequency, Duration) Notes Start Date End Date Status amLODIPine Besylate 5 MG 1 tablet Orally Once a day for 30 day(s) Active Prazosin HCl 5 MG 1 capsule at bedtime Orally Once a day for 30 day(s) Active Plavix 75 MG 1 tablet Orally Once a day for 30 day(s) Active One Touch Ultra Test Strips - Active Colace 100 MG 1 capsule as needed Orally Once a day for 30 day(s) Active Tylenol PM Extra Strength 500-25 MG 1 tablet at bedtime as needed Orally Once a day for 30 day(s) Active Carafate 1 GM 1 tablet on an empty stomach Orally Twice a day for 30 day(s) Active traZODone HCl 50 MG 1 tablet at bedtime as needed Orally Once a day for 30 day(s) Active Xfoorxzcmu-QGFJ-Uctmmrps 50-325-40 MG 1 capsule as needed Orally every 4 hrs Active tiZANidine HCl 4 MG 1 tablet as needed O rally Three times a day Active Aspirin 81 MG 1 tablet Orally Once a day for 30 day(s) Active Sotalol HCl 80 MG 1 tablet Orally ever y 12 hrs for 30 day(s) Active Furosemide 20 MG [...] Once a day for 30 day(s) Active MegaRed Mcintyre-3 Krill Oil 500 MG as directed Orally Active Loperamide HCl 2 MG 1 capsule as needed Orally Four times a day Active Latanoprost 0.005 % 1 drop into affected eye in the evening Ophthalmic Once a day Active Lancets Ultra Thin - as directed Active One Touch Ultra Test Strips - Active Omeprazole 40 MG 1 capsule 30 minutes before morning meal Orally Once a day for 30 day(s) Active Multivitamin Adult - 1 tablet Orally Onc e a day for 30 day(s) Active metFORMIN HCl ER 500 MG 1 tablet with ev ening meal Orally Once a day for 30 day(s) Active Social History Tobacco Use: Social History Observation Description Date Details (start date - stop date) Former Smoker NA - NA Tobacco Use/Smoking Question Answer Notes Patient is a former smoker How long has it been since you last smoked? > 10 years Section Notes: Quit 35 years ago Quit 35 years ago Quit 35 years ago Quit 35 years ago Quit 35 years ago Problems Problem Type SNOMED Code ICD Code Onset Dates Problem Status W/U Status Risk Notes Problem 44417761 Essential (primary) hypertension (I10) Active confirmed Problem 40665745 Obstructive sleep apnea (adult) (pediatric) (G47.33) Active confirmed Problem 825780529 Gastro-esophagea l reflux disease without esophagitis (K21.9) Active confirmed Problem 480750441 Personal history of malignant neoplasm of prostate (Z85.46) Active confirmed Problem 7936277791176621 Impacted cerumen, right ear (H61.21) Active confirmed Problem 88173588 Vitamin D deficiency, unspecified (E55.9) Active confirmed Problem 893853180 Overweight (E66.3) Active confirmed Problem 426092506 Chronic migraine without aura, not intractable, without status migrainosus (G43.709) Active confirmed Problem 16239152 Venous insufficiency (chronic) (peripheral) (I87.2) Active confirmed Problem 481780811 Spondylosis without myelopathy or radiculopathy, lumbar region (M47.816) Active confirmed Problem 167634197550784 Peroneal tendinitis, right leg (M76.71) Active confirmed Problem 108000645130986 Pain in right foot (M79.671) Active confirmed Problem 821752182370151 Pain in right toe(s) (M79.674) Active confirmed Problem 943886166355935 Pain in left toe(s) (M79.675) Active confirmed Problem 21887694840113582 Laceration without foreign body of right middle finger without damage to nail, initial encounter (S61.212A) Active confirmed Problem 63911827917058208 Sprain of deltoid ligament of right ankle, sequela (S93.421S) Active confirmed Problem 866363018 Encounter for general adult medical examination without abnormal findings (Z00.00) Active confirmed Problem 621213662 Other correction (current) drug therapy (Z79.899) Active confirmed Problem 480306853 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) Active confirmed Problem 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 (334574622278712) 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[place] artery (I25.10) Active confirmed Problem 584729901 Dyslipidemia (E78.5) Active confirmed Problem 95386633650626729 Plantar fasciitis, right (M72.2) Active confirmed Problem Leaking of urine (058640984) Leaking of urine (R32) Active confirmed Problem 461866837 Insomnia, unspecified type (G47.00) Active confirmed Problem 677450954 Other type of osteoarthritis, unspecified site (M19.90) Active confirmed Problem 8126200394463073 Instability of right ankle joint (M25.371) Active confirmed Problem 07236733 Seasonal allergic rhinitis due to pollen (J30.1) Active confirmed Problem 553013570 Controlled type 2 diabetes mellitus with hyperglycemia, without long-term current use of insulin (E11.65) Active confirmed Problem 13994822350500136 Bilateral carp al tunnel syndrome (G56.03) Active confirmed Problem 99262465 Controlled type 2 diabetes mellitus with diabetic polyneuropathy, without 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) Active confirmed Problem Glaucoma (13936423) Glaucoma of both eyes, unspecified glaucoma type (H40.9) Active confirmed Problem 112198136 Obesity, unspecified classification, unspecified obesity type, unspecified whether serious comorbidity present (E66.9) Active confirmed Problem 675842748 At low risk for fall (Z91.81) Active confirmed Problem 967652982 Encounter for screening for depression (Z13.31) Active confirmed Problem 6283571597722421 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) Active confirmed Vital Signs Heart Rate 72 /min 05/01/2024 Temperature 98 degrees Fahrenheit 05/01/2024 Oximetry 99 % 05/01/2024 Height 66 in 05/01/2024 Weight 180 lbs 05/01/2024 BMI 29.05 kg/m2 05/01/2024 Encounters Encounter Location Date Provider Diagnosis [facility] (PODIATRY) [address] [place] [address] [place] [address] 01/31/2024 Susana Momin Controlled type 2 diabetes mellitus with diabetic polyneuropathy, without long-term current use of insulin E11.42 ; Pain in left toe(s) M79.675 and Pain in right toe(s) M79.674 [facility] (PODIATRY) [address] [place] [address] [place] [address] 05/01/2024 Susanaming Momin Controlled type 2 diabetes mellitus with [...] Pain in left toe(s) (ICD-10 - M79.675) 05/01/2024 Controlled type 2 diabetes mellitus with diabetic polyneuropathy, without long-term current use of insulin (ICD-10 - E11.42) 01/31/2024 Pain in right toe(s) (ICD-10 - M79.674) Plan Of Treatment No Information Insurance Providers Payer Name Payer Address Payer Phone Subscriber Number Group Number Insured Name Patient Relationship to Insured Coverage Start Date Coverage End Date [employer] MEDICARE [address] [address] [place] [address] [phone] [id number] Jair Bennett Self - patient is the insured 4 [place] [address] [place] [address] [id number] Jair Bennett Self - patient is the insured Medical (General) History Medical History History ICD Code Seasonal allergic rhinitis due to pollen J30.1 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.2 Instability of right ankle joint M25.371 Sprain of deltoid ligament of right ankl e, sequela S93.421S Posterior tibial tendon dysfunction, rig ht M76.821 Pain in right foot M79.671 Controlled type 2 diabetes m ellitus with diabetic polyneuropathy, without long-term current use of insulin E11.42 Peroneal tendinitis, right leg M76.71 Insomnia, unspecified type G47.00 Laceration without foreign b ever of right middle finger without damage to nail, initial encounter S61.212A Controlled type 2 diabetes m ellitus with hyperglycemia, without long-term current use of insulin E11.65 Chronic migraine without aura, not intra ctable, without status migrainosus G43.709 Other type of osteoarthritis, unspecifie d site M19.90 Obstructive sleep apnea (adult) (pediatr ic) G47.33 Encounter for general adult medical exam ination without abnormal findings Z00.00 Essential (primary) hypertension I10 Overweight E66.3 Spondylosis without myelopathy or radicu lopathy, lumbar region M47.816 CAD in chit[place] artery I25.10 Encounter for screening for depression Z 13.31 Venous insufficiency (chronic) (peripher al) I87.2 Personal history of malignant neoplasm o f prostate Z85.46 Other termite helper (current) drug therapy Z 79.899 Impacted cerumen, right ear H61.21 Gastro-esophageal reflux disease without esophagitis K21.9 Dyslipidemia E78.5 At low risk for fall Z91.81 Obesity, unspecified classif ication, unspecified obesity type, unspecified whether serious comorbidity present E66.9 Bilateral carpal tunnel syndrome G56.03 Vitamin D deficiency, unspecified E55.9 Presence of cardiac pacemaker Z95.0 Glaucoma of both eyes, unspecified glauc lisy type H40.9 Surgical History Surgery Date(Month/Year) Bilateral Selective Coronary PTCA with Synergy Drug-eluting Stent Placement in the 1st and 2nd Obtuse Marginal Branches of the LT Circumflex Coronary Artery, Failed MynxGrip Closure Device Dr Arellano 08/30/2019 Cardiac Pacemaker Insertion 2013 Neck Surgery 2009 Bilateral Hernia Repair 2009 Tonsillectomy Vasectomy
--- OUTSIDE RECORDS SUMMARY | 2024-11-23 13:34 | XMS_ITS | Encounter Summary ---
Author Organization [facility] Address [address] [place] [address] Care Team Providers Care Registered Public Surveyor Name Role Phone Mg Jack MD Primary Care Provider [phone] Demetrius Mirza MD Primary Care Provider [phone] Reason for Visit * Reason Comments Med Refill Encounter Details Date Type Department Care Team (Late st Contact Info) Description 11/08/2022 Refill [facility] [address] [place] [address] Margaret Arellano MD [address] [facility] [place] [address] [place] [address] Hypertension, unspecified type Social History Tobacco Use [...] on file Sexual Orientation Not on file COVID-19 Exposure Response Date Recorded In the last 10 days, have yo u been in contact with someone who was confirmed or suspected to have Coronavirus/COVID-19? No / Unsure 11/10/2022 9:49 AM EDT documented as of this encounter Miscellaneous Notes * Telephone Encounter - Bobbi Purcell NP - 11/11/2022 10:30 AM EDT Please refill documented in this encounter Plan of Treatment Upcoming Encounters Date Type Department Care Team (Late st Contact Info) Description 12/05/2024 1:30 PM EDT Office Visit [facility] [address] [place] [address] Daniel Brunner MD [address] [facility] [place] [phone] documented as of this encounter Visit Diagnoses Diagnosis Hypertension, unspecified type documented in this encounter Care Teams Registered Public Surveyor Relationship Specialty Start Date End Date Mg Jack MD [address] [place] [address] PCP - General 01/17/22 11/09/22 Demetrius Mirza MD [address] [place] [address] PCP - General Family Medicine 11/10/22 documented as of this encounter
--- NOTE | 2024-11-23 14:03 | PM.WCHP ---
Wound Care H&P: HPI History of Present Illness Narrative: The patient is a pleasant 84-year-old gentleman who presents for routine nail care. He has history of type 2 diabetes and his last hemoglobin A1c was 5.9. He has no complaints in regards to his feet at this time. [facility] Medical History (Updated 11/23/24 @ 14:05 by NILAY Banegas) Anemia �D64.9 - Anemia, unspecified (ICD-10) COVID �U07.1 - COVID-19 (ICD-10) Vitamin D deficiency �E55.9 - Vitamin D deficiency, unspecified (ICD-10) Skin cancer �C44.90 - Unspecified malignant neoplasm of skin, unspecified (ICD-10) NPH (normal pressure hydrocephalus) �G91.2 - (Idiopathic) normal pressure hydrocephalus (ICD-10) Migraine �G43.909 - Migraine, unspecified, not intractable, without status migrainosus (ICD-10) Glaucoma �H40.9 - Unspecified glaucoma (ICD-10) Diverticulosis �K57.90 - Diverticulosis of intestine, part unspecified, without perforation or abscess without bleeding (ICD-10) Ventricular tachycardia �I47.20 - Ventricular tachycardia, unspecified (ICD-10) Arthritis �M19.90 - Unspecified osteoarthritis, unspecified site (ICD-10) Cervical lymphadenopathy �R59.0 - Localized enlarged lymph nodes (ICD-10) Neck pain �M54.2 - Cervicalgia (ICD-10) Low back pain �M54.50 - Low back pain, unspecified (ICD-10) Thrombosis �I82.90 - Acute embolism and thrombosis of unspecified vein (ICD-10) Weakness �R53.1 - Weakness (ICD-10) Hiatal hernia �K44.9 - Diaphragmatic hernia without obstruction or gangrene (ICD-10) Acid reflux �K21.9 - Gastro-esophageal reflux disease without esophagitis (ICD-10) Diabetes �E11.9 - Type 2 diabetes mellitus without complications (ICD-10) Prostate cancer �C61 - Malignant neoplasm of prostate (ICD-10) Sleep apnea �G47.30 - Sleep apnea, unspecified (ICD-10) Irregular heart beat �I49.9 - Cardiac arrhythmia, unspecified (ICD-10) High cholesterol �E78.00 - Pure hypercholesterolemia, unspecified (ICD-10) Hypertension �I10 - Essential (primary) hypertension (ICD-10) Surgical History History of lymph node biopsy �Z98.890 - Other specified postprocedural states (ICD-10) History of implantation of artificial sphincter �Z96.89 - Presence of other specified functional implants (ICD-10) Hx laparoscopic cholecystectomy �Z90.49 - Acquired absence of other specified parts of digestive tract (ICD-10) History of carpal tunnel release of both wrists �Z98.890 - Other specified postprocedural states (ICD-10) Pacemaker �Z95.0 - Presence of cardiac pacemaker (ICD-10) H/O angioplasty �Z98.62 - Peripheral vascular angioplasty status (ICD-10) H/O vasectomy �Z98.52 - Vasectomy status (ICD-10) H/O neck surgery �Z98.890 - Other specified postprocedural states (ICD-10) History of repair of inguinal hernia �Z98.890 - Other specified postprocedural states (ICD-10) �Z87.19 - Personal history of other diseases of the digestive system (ICD-10) History of prostatectomy �Z90.79 - Acquired absence of other genital organ(s) (ICD-10) History of phacoemulsification of cataract of both eyes with intraocular lens implantation �Z98.41 - Cataract extraction status, right eye (ICD-10) �Z98.42 - Cataract extraction status, left eye (ICD-10) �Z96.1 - Presence of intraocular lens (ICD-10) History of cardiac radiofrequency ablation �Z98.890 - Other specified postprocedural states (ICD-10) History of tonsillectomy �Z90.89 - Acquired absence of other organs (ICD-10) Social History Smoking status: Former smoker Little interest or pleasure in doing things: not at all Feeling down, depressed, or hopeless: not at all Meds Home Medications and Allergies Home Medications �Medication �Instructions �Recorded �Confirmed �Type amlodipine 5 mg tablet 5 mg PO QDAY 10/14/22 02/29/24 History clopidogrel 75 mg tablet (Plavix) 75 mg PO QDAY 10/14/22 02/29/24 History furosemide 20 mg tablet (Lasix) 40 mg PO QDAY 10/14/22 02/21/24 History irbesartan 300 mg tablet (Avapro) 300 mg PO QDAY 10/14/22 02/29/24 History isosorbide mononitrate 30 mg PO QDAY 10/14/22 02/29/24 History latanoprost 0.005 % eye drops 1 drp ophthalmic (eye) QDAY 10/14/22 02/29/24 History loperamide 2 mg capsule 2 mg PO Q2H PRN loose stool 10/14/22 02/29/24 History (Anti-Diarrheal (loperamide)) multivitamin (Daily Multi-Vitamin 1 tab PO QDAY 10/14/22 02/29/24 History tablet) omeprazole 40 mg capsule,delayed 40 mg PO QDAY 10/14/22 02/29/24 History release rosuvastatin 10 mg tablet (Crestor) 10 mg PO QDAY 10/14/22 02/29/24 History sotalol 40 mg PO BID 10/14/22 02/29/24 History tizanidine 4 mg tablet 4 mg PO BEDTIME 10/14/22 02/29/24 History TRANSDERMAL THERAPEUTICS QID PRN pain 09/15/23 History albuterol sulfate 90 mcg/actuation 2 inh inhalation Q8H PRN shortness 09/15/23 09/15/23 History aerosol inhaler of breath or wheezing famotidine 20 mg tablet 20 mg PO DAILY 09/15/23 02/29/24 History metformin 500 mg tablet,extended 500 mg PO DAILY 09/15/23 02/29/24 History release 24 hr psyllium husk 0.4 gram capsule 0.4 g PO DAILY 09/15/23 02/21/24 History (Metamucil) zonisamide 25 mg capsule 25 mg PO BID 09/15/23 02/29/24 History dorzolamide 2 % eye drops 1 drp ophthalmic (eye) TID 02/21/24 02/29/24 History Allergies Allergy/AdvReac Type Severity Reaction Status Date / Time adhesive Allergy Mild Unknown Verified 09/29/24 22:56 [facility] Mild itch Verified 09/29/24 22:56 Extended-Release) Exam Narrative: Exam Narrative: Derm: Mycotic toenails affecting 2 through 5 on each foot, no evidence of paronychia. Both hallux toenails have been partially removed in the past, there is remaining spicule growing on both great toes. No ulcerative or preulcerative lesions are noted. Skin is dry and shiny with varicosities present. Vascular: Nonpalpable PT pulses bilaterally. Dorsalis pedis pulses are 1/4 bilaterally. Capillary refill is approximately 3 seconds. Skin is cool to the touch. Trace edema bilaterally. Digital hair is absent. Varicosities are present. Musculoskeletal: no gross deformity, range of motion is supple Neuro: Protective sensation intact to 5/5 tested areas with the monofilament on each foot. Vibratory sensation is absent on the right and decreased on the left, Achilles deep tendon reflexes are absent bilaterally Assessment and Plan Assessment and Plan (1) Tinea unguium: (2) PAD (peripheral artery disease): (3) Gait instability: (4) Disorder of nail due to another disorder: (5) Type 2 diabetes mellitus with diabetic neuropathy, unspecified: Plan Routine nail care performed without incident. Follow-up in 3 months or as needed. Acute Procedures Podiatry Nail Debridement Class B Findings Absent posterior tibial pulse: bilateral Advanced trophic changes as evidenced by any three of the following: decreased hair growth, nail changes (thickening) and skin texture (thin or shiny) Class C Findings Claudication: No Temperature changes: No Edema: Yes Nail debridement paresthesia (abnormal spontaneous sensations in the feet): No Burning: No Qualifies If: Qualifiers If:: A patient qualifies for nail debridement if they have: 1 class A finding (Q7) 2 class B findings (Q8) OR 1 class B & 2 class C findings in addition to a primary condition (Q9) Nail Procedure Nail Procedure Time out: Yes Nail procedure: other (Toenail debridement toes 1 through 10) Number of affected nails: 10 Location (toes): left Procedure successful: Yes Patient tolerated procedure: well and no complications Additional comments: Toenails 1 through 10 were sharply debrided with nail nippers without incident.
== END 2024-11-23 13:30 | disposition home or self-care (01) ==
LOC: WC 13:31
PROVIDERS: PCP Family Medicine; Visit Provider Physician Assistant
DX: B35.1 Tinea unguium (principal); I73.9 Peripheral vascular disease, unspecified; R26.89 Other abnormalities of gait and mobility; L60.9 Nail disorder, unspecified; E11.40 Type 2 diabetes mellitus with diabetic neuropathy, unspecified
CPT/HCPCS: 11721

== ENCOUNTER 2025-02-02 07:16 | Outpatient (OUT) | payer MEDICARE, SELFPAY ==
--- OUTSIDE RECORDS SUMMARY | 2025-02-02 07:19 | XMS_ITS | Encounter Summary ---
Author Organization [facility] Address [address] [place] [address] Care Team Providers Care Hospice Volunteer Coordinator Name Role Phone Demetrius Mirza MD Primary Care Provider [phone] Yajaira Roque-Tyson Primary Care Provider [phone] Encounter Details Date Type Department Care Team (Late st Contact Info) Description 11/09/2024 Orders Only [facility] Clinic [address] [place] [address] Daniel Brunner MD [address] [place] [address] Social History Tobacco Use Types Packs/Day Years [...] Department Care Team (Late Contact Info) Description 02/06/2025 2:15 PM EDT Ancillary Procedure [facility] [address] [place] [address] documented as of this encounter Procedures Procedure Name Priority Date/Time Associated Diagnosis Comments CARDIAC DEVICE CHECK - REMOTE - PACEMAKER Routine 11/09/2024 12:00 AM EDT documented in this encounter Results * Cardiac device check - Remote pacemaker (11/09/2024 12:00 AM EDT) Anatomical Region Laterality Modality Other 11/09/2024 Daniel Brunner MD CV IMPLANTABLE CARDIAC DEVICE IN OCEDURES Final Result documented in this encounter Visit Diagnoses Not on filedocumented in this encounter Care Teams Hospice Volunteer Coordinator Relationship Specialty Start Date End Date Demetrius Mirza MD [address] [place] [id number] PCP - General Family Medicine 11/10/22 12/04/24 Yajaira Roque FNP-C [facility] [place] [address] PCP - General Nurse Practitioner 12/05/24 documented as of this encounter
--- OUTSIDE RECORDS SUMMARY | 2025-02-02 07:19 | XMS_ITS | Encounter Summary ---
Author Organization [facility] Address [address] [place] [address] Care Team Providers Care Trouble Tracer Name Role Phone Juan Corado MD Unavailable [phone] Demetrius Mirza MD Primary Care Provider [phone] Encounter Details Date Type Department Care Team (Late st Contact Info) Description 12/22/2022 Abstract [facility] Pod[facility] [address] [place] [id number] Adrianna Rowell, DPM [address] [place] [address] Social History Tobacco Use Types Packs/Day Years [...] on filedocumented in this encounter Care Teams Trouble Tracer Relationship Specialty Start Date End Date Demetrius Mirza MD PCP - General Family Medicine 01/26/24 Juan Corado MD Referring Physician Neurology 08/03/23 documented as of this encounter
--- OUTSIDE RECORDS SUMMARY | 2025-02-02 07:19 | XMS_ITS | Encounter Summary ---
Author Organization [facility] Address [address] [place] [address] Care Team Providers Care Oven Dauber Name Role Phone Juan Corado MD Unavailable [phone] Demetrius Mirza MD Primary Care Provider [phone] Encounter Details Date Type Department Care Team (Late st Contact Info) Description 01/27/2024 Abstract [facility] Otol[facility] [address] [place] [address] Jenni Richardson, BORIS [address] [facility] [address] [place] [address] Social History Tobacco Use Types Packs/Day Years [...] on filedocumented in this encounter Care Teams Oven Dauber Relationship Specialty Start Date End Date Demetrius Mirza MD PCP - General Family Medicine 01/26/24 Juan Corado MD [phone] (work) Referring Physician Neurology 08/03/23 documented as of this encounter
--- OUTSIDE RECORDS SUMMARY | 2025-02-02 07:20 | XMS_ITS | Encounter Summary ---
Author Organization [facility] Address [address] [place] [address] Care Team Providers Care Cigar Packer And Grader Name Role Phone Juan Corado MD Unavailable [phone] Demetrius Mirza MD Primary Care Provider [phone] Encounter Details Date Type Department Care Team (Late st Contact Info) Description 07/17/2024 External Result Encounter [facility] External Department Unsolicited Matteo Melo MD 703 [facility] [address] [place] [address] Social History Tobacco Use Types Packs/Day Years [...] 07/17/24 1407 Narrative 07/17/2024 2:10 PM EST [place] [id number] XRay Report Signed Patient: Jair Bennett MR#: [id number] 669 : 1940 Acct:[id number] Age/Sex: 83 / M ADM Date: 07/17/24 Loc: [place] Room: Type: [facility] Attending Dr: Matteo Melo MD Copies to: [...] portable Procedure Note Radiology, Radiologist, - 07/24/[address] [address] XRay Report Signed Patient: Jair Bennett PMR#: [id number] 669 : 1940Acct:[id number] Age/Sex: 83 / MADM Date: 07/17/24 Loc: [place] Room:Type: [facility] Attending Dr: Matteo Melo MD Copies to: [...] 2:07 PM Dictation Location: [id number] Transcribed By: [facility] 07/17/24 1407 Dictated By: Mario Urias Jr, DO 07/17/24 1407 Signed By: <Electronically signed by Mario Urias Jr, DO inOV> 07/17/24 1407 us Matteo Bell MD IMG XR PROCEDURES Edited Res ult - Final documented in this encounter Visit Diagnoses Not on filedocumented in this encounter Care Teams Cigar Packer And Grader Relationship Specialty Start Date End Date Demetrius Mirza MD PCP - General Family Medicine 01/26/24 Juan Corado MD Referring Physician Neurology 08/03/23 documented as of this encounter
--- OUTSIDE RECORDS SUMMARY | 2025-02-02 07:20 | XMS_ITS | Encounter Summary ---
Author Organization [facility] Address [address] [place] [address] Care Team Providers Care Lode Miner Blasting Name Role Phone Mg Jack MD Primary Care Provider [phone] Demetrius Mirza MD Primary Care Provider [phone] Yajaiar RoqueP-C Primary Care Provider [phone] Reason for Visit * Reason Comments Med Refill Encounter Details Date Type Department Care Team (Late st Contact Info) Description 11/08/2022 Refill [facility] [address] [place] [address] Margaret Arellano MD 57[address] [facility] [place] [address] [facility] [place] [address] Hypertension, unspecified type Social History [...] Care Team (Late st Contact Info) Description 02/06/2025 2:15 PM EDT Ancillary Procedure [facility] [address] [place] [address] documented as of this encounter Visit Diagnoses Diagnosis Hypertension, unspecified type documented in this encounter Care Teams Lode Miner Blasting Relationship Specialty Start Date End Date Mg Jack MD [address] [place] [address] PCP - General 01/17/22 11/09/22 Demetrius Mirza MD [address] [place] [address] PCP - General Family Medicine 11/10/22 12/04/24 Yajaira Roque FNP-Tyson [address] [place] [address] PCP - General Nurse Practitioner 12/05/24 documented as of this encounter
--- OUTSIDE RECORDS SUMMARY | 2025-02-02 07:20 | XMS_ITS ---
Author Organization [facility] Address [address] [place] [address] Care Team Providers Care Nurse Monitoring Name Role Phone Juan Corado MD Unavailable [phone] Demetrius Mirza MD Primary Care Provider [phone] Active Problems Problem Noted Date Diagnosed Date [...] History of malignant neoplasm of prostate 2021 [place] (hard of hearing) 04/03/2022 Overview (01/27/2024): Hearing Aids Hearing Aids Hypercholesterolemia 04/03/2022 Hyperlipidemia 04/03/2022 Overview (01/27/2024): crestor , [place] 3 crestor , [place] 3 Last Assessment & Plan: 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 Continue crestor Insomnia 04/03/2022 Overview (01/27/2024): ambien ambien Migraines 04/03/2022 Overview (01/27/2024): fioricet with codiene, depakote fioricet with codiene, depakote Neuropathy 04/03/2022 Overview (01/27/2024): feet / DM / gabapentin feet / DM / gabapentin NPH (normal pressure hydrocephalus) 04/03/2022 Overview (01/27/2024): corporate vp advertising & online shunt corporate vp advertising & online shunt Obstructive sleep apnea 04/03/2022 Osteoarthritis 04/03/2022 [...]
--- OUTSIDE RECORDS SUMMARY | 2025-02-02 07:20 | XMS_ITS | Encounter Summary ---
Author Organization [facility] Address [address] [place] [address] Care Team Providers Care Chief Warden Name Role Phone Demetrius Mirza MD Primary Care Provider [phone] Yajaira Roque-Tyson Primary Care Provider [phone] Reason for Visit * Reason Comments Med Refill Encounter Details Date Type Department Care Team (Late Contact Info) Description 07/29/2023 Refill [facility] [address] [place] [address] Margaret Arellano MD [address] [facility] [place] [address] [facility] [place] [phone] Mitral valve insufficiency, unspecified etiology; Hypertension, unspecified [...] Description 02/06/2025 2:15 PM EDT Ancillary Procedure [facility] Heart at [facility] [address] [place] [address] documented as of this encounter Visit Diagnoses Diagnosis Mitral valve insufficiency, unspecified etiology Hypertension, unspecified type documented in this encounter Care Teams Chief Warden Relationship Specialty Start Date End Date Demetrius Mirza MD [address] [place] [address] PCP - General Family Medicine 11/10/22 12/04/24 Yajaira Roque FNP-C [address] [place] [address] PCP - General Nurse Practitioner 12/05/24 documented as of this encounter
--- OUTSIDE RECORDS SUMMARY | 2025-02-02 07:20 | XMS_ITS | Encounter Summary ---
Author Organization [facility] Address [address] [place] [address] Care Team Providers Care Tonal Regulator Name Role Phone Juan Corado MD Unavailable [phone] Demetrius Mirza MD Primary Care Provider [phone] Encounter Details Date Type Department Care Team (Late Contact Info) Description 03/10/2024 Orders Only [facility] Otolaryngology [address] [facility] [address] [place] [address] Consuelo Mcghee MD [address] [place] [facility] [address] [place] [address] Social History Tobacco Use Types Packs/Day Years [...] on filedocumented in this encounter Care Teams Tonal Regulator Relationship Specialty Start Date End Date Demetrius Mirza MD PCP - General Family Medicine 01/26/24 Juan Corado MD Referring Physician Neurology 08/03/23 documented as of this encounter
--- OUTSIDE RECORDS SUMMARY | 2025-02-02 07:20 | XMS_ITS | Clinical Summary ---
Author Organization [facility] Address [address] [place] [address] Care Team Providers Care Marble Cutter Name Role Phone Juan Corado MD Unavailable [phone] Demetrius Mirza MD Primary Care Provider [phone] Allergies Active Allergy Reactions Criticality Noted Date [...] History of malignant neoplasm of prostate 2021 [place] (hard of hearing) 04/03/2022 Overview (01/27/2024): Hearing Aids Hearing Aids Hypercholesterolemia 04/03/2022 Hyperlipidemia 04/03/2022 Overview (01/27/2024): crestor , [place] 3 guillerminaor Rajiv 3 Last Assessment & Plan: 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 Continue crestor Insomnia 04/03/2022 Overview (01/27/2024): ambien ambien Migraines 04/03/2022 Overview (01/27/2024): fioricet with codiene, depakote fioricet with codiene, depakote Neuropathy 04/03/2022 Overview (01/27/2024): feet / DM / gabapentin feet / DM / gabapentin NPH (normal pressure hydrocephalus) 04/03/2022 Overview (01/27/2024): vp of product shunt vp of product shunt Obstructive sleep apnea 04/03/2022 Osteoarthritis 04/03/2022 [...] Encounters Date Type Department Care Team Description 01/18/2025 9:45 AM EDT Office Visit [facility] [address] [place] [address] [address] [place] [address] Mulugeta Ross DO Esophageal dysphagia (Primary Dx) 01/18/2025 Travel 01/17/2025 Travel 01/16/2025 Travel 01/09/2025 Travel 01/08/2025 3:15 PM EDT Office Visit [facility] [address] [place] [address] [address] [place] [address] Mulugeta Ross DO Esophageal dysphagia (Primary Dx); 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 Travel 12/27/2024 Travel 11/27/2024 Refill [facility] [address] [facility] [place] [address] Mg Jack MD Peripheral venous insufficiency 11/13/2024 External Result Encounter [facility] External Department Unsolicited Becky Crouch NP from Last 3 Months Immunizations Immunization Administration [...] Fidel Bennett stomach problem Paternal Grandfather Fidel Sabrina Relation Name Status Comments Brother 1 brother Father Daniel Bennett Maternal Grandmother Claire Edwards Mother Estee Bennett Paternal Grandfather Fidel Sabrina Sister 1 sister Social History Tobacco Use Types Packs/Day Years [...] - - Weight 67.1 kg (148 lb) 01/18/2025 9:32 AM EDT Height 165.1 cm (5' 5 ) 01/18/2025 9:32 AM EDT Body Mass Index 24.63 01/18/2025 9:32 AM EDT Plan of Treatment Health Maintenance Due Date Last Done Comments Influenza Vaccine (#1) 2025 , 04/12/2023, 02/18/2021, Additional history exists Pneumococcal Vaccine: 65+ Years Completed 11/22/2023, 01/30/2014, 01/30/2014 Medical Devices Implanted Type Area Human Resources Intern Device Identifier Shelf Expiration Date Model / Serial / Lot Cardiac Pacemaker Cardiac Pacemaker Chest Procedures Procedure Name Priority Date/Time Associated Diagnosis Comments PET/CT SKULL BASE TO MID THIGH 11/13/2024 3:39 PM EDT from Last 3 Months Results * PET/CT skull base to mid thigh (11/13/2024 3:39 PM EDT) Anatomical Region Laterality Modality Body Computed Tomogra phy 11/13/2024 3:39 PM EDT Impressions 11/13/2024 3:[address] Impression dictated by: Mario Urias Jr., D.OAidan 11/13/2024 3:50 PM Dictation Location: [place] [address] Transcribed By: PERLA 11/13/24 1550 Dictated By: Mario Urias Jr, DO 11/13/24 1539 Signed By: <Electronically signed by Mario Urias Jr, DO in OV> 11/13/24 1550 Narrative 11/13/2024 3:52 PM EDT [facility] Main [place] [id number] Nuclear Medicine Report Signed Patient: Jair Bennett MR#: [id number] 669 : 1940 Acct:[id number] Age/Sex: 84 / M ADM Date: 11/23/24 Loc: XT Room: Type: [facility] Attending Dr: Talib Faustin MD Copies to: Mario Urias Jr, RAYSHAWN Lobato MD Norleena Poynter, MD Ordering Provider: Becky [...] Procedure Note Mario Urias Jr., DO - 11/23/2024 [facility] Main [place] [address] [place] [address] Nuclear Medicine Report Signed Patient: Jair Bennett PMR#: [id number] 669 : 1940Acct:[id number] Age/Sex: 84 / MADM Date: 11/23/24 Loc: Room:Type: [facility] Attending Dr: Talib Faustin MD Copies to: Mario Urias Jr, RAYSHAWN Lobato MD Norleena Poynter, MD Ordering Provider: Becky [...] Jr., D.O. 11/13/2024 3:50 PM Dictation Location: [place] [address] Transcribed By: [facility] 11/13/24 1550 Dictated By: Mario Urias Jr, DO 11/13/24 1539 Signed By: <Electronically signed by Mario Urias Jr, DO inOV> 11/13/24 1550 Becky Rachel Crouch GRINDING MACHINE OPERATOR IMG CT PROCEDURES Edited Resu lt - Final from Last 3 Months Insurance [place] [address] Care Teams Marble Cutter Relationship Specialty Start Date End Date Demetrius Mirza MD PCP - General Family Medicine 01/26/24 Juan Corado MD Referring Physician Neurology 08/03/23
--- OUTSIDE RECORDS SUMMARY | 2025-02-02 07:20 | XMS_ITS | Clinical Summary ---
Author Organization [facility] Address [address] [place] [address] Care Team Providers Care Geophysical Observer Name Role Phone Yajaira Roque CONSUMER RECRUITER-C Primary Care Provider [phone] Allergies Active Allergy Reactions Criticality Noted Date [...] in the morning. 3 Active HYDROcodone-acetam inophen ([place]) 5-325 mg tablet Take 1 tablet by [...] 50 mg by mouth at bedtime. Active albuterol 90 mcg/actuation inhaler Inhale 2 puffs if needed. Active loperamide (Imodium A-D) 2 mg tablet Take 2 mg by mouth if needed in the morning, at noon, in the evening, and at bedtime. Active Active Problems Problem Noted Date Diagnosed Date Constipation due to opioid therapy 12/05/2024 Overview (12/05/2024): noted in 08/16/2024 Palliative Care Consult Note page 5. added per OP CDI policy. Former smoker 12/05/2024 Immunosuppression 12/05/2024 Overview (12/05/2024): noted in 08/20/2024 [facility] ED Note page 5. added per OP CDI policy. 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 added per OP CDI policy. Mild pulmonary hypertension 12/05/2024 Overview (12/05/2024): added per 08/23/2024 query response. Nausea 12/05/2024 Overview (12/05/2024): noted in 08/16/2024 Palliative Care Consult Note page 5. added per OP CDI policy. Urinary hesitancy 12/05/2024 Arthrodesis status 10/04/2024 Dependence on other enabling machines and device s 10/04/2024 retirement (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 10/04/2024 Personal history of nicotine dependence 10/05/19 25 Presence of coronary angioplasty implant and gra ft 10/04/2024 Pulmonary hypertension, unspecified 09/28/2024 At low risk for fall 09/04/2024 Chronic migraine without aur a, not intractable, without status migrainosus 09/04/2024 Dyslipidemia 09/04/2024 Impacted cerumen, right ear 09/04/2024 Instability of right ankle joint 09/04/2024 Laceration without foreign b ever of right middle finger without damage to nail, initial encounter 09/04/2024 Other terminal makeup operator (current) drug therapy Overweight 09/04/2024 Pain in [...] cancer 04/14/2023 04/14/2023 Irregular bowel habits 04/14/2023 Loose stools 04/14/2023 04/14/2023 Hard stool 04/14/2023 [...] History of malignant neoplasm of prostate 2021 [place] (hard of hearing) 04/03/2022 Overview (04/03/2022): Hearing Aids Hyperlipidemia 04/03/2022 Overview (04/03/2022): crestor , [place] 3 Assessment & Plan (11/10/2022 1:09 PM EDT): 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 Continue crestor Hypertension 04/03/2022 Overview (04/03/2022): Amlodipine, avapro Assessment & Plan (11/10/2022 1:10 PM EDT): Hypertension is well controlled 114/77 Continue meds Insomnia 04/03/2022 Overview (04/03/2022): ambien Lower abdominal pain 04/03/2022 Pain of upper abdomen 04/03/2022 Migraines 04/03/2022 Overview (04/03/2022): fioricet with codiene, depakote Neuropathy 04/03/2022 Overview (04/03/2022): feet / DM / gabapentin NPH (normal pressure hydrocephalus) 04/03/2022 Overview (04/03/2022): vp emerging media shunt Osteoarthritis 04/03/2022 Overview (04/03/2022): Mobic, tyenol, [...] YRLY IN FALL --TETANUS Q 10 YRS [id number] --HZ ONCE AGE 59 Needs 2019 --PREVNAR [...] Encounters Date Type Department Care Team Description 12/05/2024 1:30 PM EDT Office Visit [facility] Heart [place] [address] [place] [address] Daniel Brunner MD Sinus node dysfunction (CMS/HCC) (Primary Dx) 11/09/2024 12:35 AM EDT Ancillary Procedure [facility] [place] [facility] [address] [place] [address] Adjustment and management of cardiac pacemaker 11/09/2024 Orders Only [facility] [address] [place] [address] Daniel Brunner MD from Last 3 Months Immunizations Immunization Administration Dates Next Due Influenza, Unspecified 01/22/2018 Influenza, injectable, MDCK, preservative free, quadrivalent 02/18/2021,02/14/2020 Pneumococcal Conjugate PCV 7 01/30/2014 Unspecified Sars-Cov-2 Vaccination 11/25,03/06/2021,06/27/2020,2020 Family History Medical History Relation Name Comments Coronary artery disease Mother Heart failure Mother Kidney disease Mother Relation Name Status Comments Father Mother Social History Tobacco Use Types Packs/Day [...] Sign Reading Time Taken Comments Blood Pressure 95/63 12/05/2024 1:19 PM EDT Pulse 63 12/05/2024 1:19 PM EDT Temperature - - Respiratory Rate 12 07/10/2024 10:15 AM EST Oxygen Saturation 96% 12/05/2024 1:19 PM EDT Inhaled Oxygen Concentration - - Weight 72.1 kg (159 lb) 12/05/2024 1:19 PM EDT Height 165.1 cm (5' 5 ) 12/05/2024 1:19 PM EDT Body Mass Index 26.46 12/05/2024 1:19 PM EDT Plan of Treatment Upcoming Encounters Date Type Department Care Team (Late st Contact Info) Description 02/06/2025 2:15 PM EDT Ancillary Procedure [facility] at [facility] [address] [place] [address] Health Maintenance Due Date Last Done Comments Diabetes: Hemoglobin A1C 1940 Medicare Annual Wellness (AWV) 1940 Diabetes: Retinopathy Screening 10/29/1949 Depression Screening 1951 Diabetes: Urine Protein Screening 10/29/1958 Adult Tetanus 10/29/1961 Fall Risk Screening 10/29/2004 COVID-19 Vaccine ( season) 2025 04/28/2023, 11/25/2021, 11/25/2021, Additional history exists Influenza [...] this topic Medical Devices Implanted Type Area Reviewer Sales Device Identifier Shelf Expiration Date Model / Serial / Lot Generator,Asu re,Ipg3,Xt Dr Alexander - [id number] - [id number] Implanted:Qty : 1 on 07/10/2024 by Daniel Brunner MD at [facility] Lead N/A: Chest [employer] CARDIO-VAS DIV [id number] 12/11/2025 [id number] / [id number] / Description:Device [id number] Advisa Dr Alexander [id number] Implanted:11/2013 (Quantity not on file) Pacemaker [id number] ADVISA DR ALEXANDER / [id number] / Procedures Procedure Name Priority Date/Time Associated Diagnosis Comments CARDIAC DEVICE CHECK CHECK - REMOTE Routine 12/13/2024 10:58 AM EDT Adjustment and management of cardiac pacemaker CARDIAC DEVICE CHECK - REMOTE - PACEMAKER Routine 11/09/2024 12:00 AM EDT from Last 3 Months Results * CARDIAC DEVICE CHECK - REMOTE - PACEMAKER (12/13/2024 10:58 AM EDT) BSA 1.82 m2 CPACS Daniel Brunner MD CV IMPLANTABLE CARDIAC DEVICE [place] OCEDURES Final Result CPACS * Cardiac device check - Remote pacemaker (11/09/2024 12:00 AM EDT) Anatomical Region Laterality Modality Other 11/09/2024 Daniel Brunner MD CV IMPLANTABLE CARDIAC DEVICE [place] OCEDURES Final Result from Last 3 Months Insurance [facility] [address] Care Teams Geophysical Observer Relationship Specialty Start Date End Date Yajaira Roque FNP-C [address] [place] [id number] PCP - General Nurse Practitioner 12/05/24
--- OUTSIDE RECORDS SUMMARY | 2025-02-02 07:20 | XMS_ITS | Clinical Summary ---
Author Organization [facility] Address [facility] [place] [address] Care Team Providers Care Family Readiness Support Assistant Name Role Phone Anjali Ruby CNP Unavailable [phone] Consuelo Mcghee MD Unavailable Demetrius Mirza MD Primary Care Provider [phone] Allergies Active Allergy Reactions Criticality Noted Date Comments Adhesive Tape-Silicones Rash 01/19/2019 Niacin Itching,Unknown 01/19/2019 Medications isosorbide mononitrate ER (IMDUR) 30 mg 24 hr tablet Take 30 mg by mouth. 09/01/19 23 Active clopidogrel (PLAVIX) 75 mg tablet 02/28/20 23 Active furosemide (LASIX) 20 mg tablet Take 20 mg by mouth. 04/24/20 20 Active fluticasone (FLONASE) 50 mcg/actuation nasal spray 1 [place]. 08/25/19 23 Active omeprazole (PRILOSEC) 40 mg [...] is lower risk 6 04/01/2023 Data from: https://www.neighborhoodatlas.medicine.[facility].edu/. Last address used for calculation [address] [...] Vaccine (1 - 1-dose 75+ series) 10/29/2014 Advance Directive Discussion 05/17/2024 Medicare Advantage Annual We llness Visit 05/17/2024 Influenza Vaccine (#1) 2025 , 02/18/2021, 02/14/2020, Additional history exists Pneumococcal Vaccine: 50+ Completed 11/22/2023, Shingrix Vaccine Completed 02/09/2024, 11/22/2023 Procedures Procedure Name Priority Date/Time Associated Diagnosis Comments CT OUTSIDE CD DICOM IMPORT 11/13/2024 CT OUTSIDE CD DICOM IMPORT 11/13/2024 from Last 3 Months Results * CT-PET tumor subq tx strat sb-mt IMPORT (11/13/2024) Anatomical Region Laterality Modality Other 11/13/2024 Narrative 11/23/2024 11:15 PM EDT Images were obtained outside of [facility] Procedure Note Provider, [facility] [place] - 11/23/2024 Images were obtained outside of [facility] Provider RADIOLOGY Final Result * CT-PET tumor subq tx strat sb-mt IMPORT (11/13/2024) Anatomical Region Laterality Modality Other 11/13/2024 Narrative 11/23/2024 11:15 PM EDT Images were obtained outside of [facility] Procedure Note Provider, [facility] [place] - 11/23/2024 Images were obtained outside of [facility] Provider RADIOLOGY Final Result from Last 3 Months Insurance [facility] [employer] HMO Care Teams Family Readiness Support Assistant Relationship Specialty Start Date End Date Demetrius Mirza MD [address] [place] [address] PCP - General Family Medicine 03/27/24 Anjali Ruby, SKIN PEELING MACHINE OPERATOR [address] [place] [address] Referring Family Medicine 03/03/23 Consuelo Mcghee MD [address] [id number] Ent - Otolaryngology 03/10/24
--- OUTSIDE RECORDS SUMMARY | 2025-02-02 07:20 | XMS_ITS | Encounter Summary ---
Author Organization [facility] Address [address] [place] [address] Care Team Providers Care Noxious Weeds And Pest Inspector Name Role Phone Juan Corado MD Unavailable [phone] Demetrius Mirza MD Primary Care Provider [phone] Encounter Details Date Type Department Care Team (Late st Contact Info) Description 06/22/2024 External Result Encounter [facility] External Department Unsolicited Matteo Melo MD [address] [facility] [address] [place] [address] Social History Tobacco Use Types Packs/Day Years [...] 3:10 PM EST) 06/22/2024 3:10 PM EST [facility] - 06/23/2024 3:17 PM EST [facility] [address] [address] Electrocardiograph Report Signed Patient: Jair Bennett MR#: [id number] [id number] : 1940 Acct:[id number] Age/Sex: 83 / M ADM Date: 06/22/24 Loc: PS [facility]: [facility]: Matteo Melo MD Ordering Provider: [...] Signed By Pratima Arenas MD 0 06/23/24 5334 Procedure Note Pratima Arenas MD - 07/24/[address] [address] Electrocardiograph Report Signed Patient: Jair Bennett PMR#: [id number] : 1940Acct:[id number] Age/Sex: 83 / MADM Date: 06/22/24 Loc: PS Room:Type: [facility] CLI Attending Dr: Matteo Melo MD Ordering [...] MUS Signed By Pratima Arenas MD0 06/23/24 7817 us Matteo Bell MD ECG ORDERABLES Edited Resul t - Final [facility] [address] [place] [address], documented in this encounter Visit Diagnoses Not on filedocumented in this encounter Care Teams Noxious Weeds And Pest Inspector Relationship Specialty Start Date End Date Demetrius Mirza MD PCP - General Family Medicine 01/26/24 Juan Corado MD Referring Physician Neurology 08/03/23 documented as of this encounter
--- OUTSIDE RECORDS SUMMARY | 2025-02-02 07:20 | XMS_ITS | Clinical Summary ---
Author Organization [facility] Address [address] [place] [address] Phone Care Team Providers Care Web Page Designer Name Role Phone Demetrius Mirza MD Primary Care Provider Allergies Active Allergy Reactions Criticality Noted Date Comments Adhesive Rash Low 07/27/2023 Adhesive Tape-Silicones Rash Low 01/19/2019 Niacin Hives,Itching,Unknown 01/19/2019 Medications amLODIPine (Norvasc) 5 mg tablet Take 1 tablet (5 mg) by mouth once daily. 4 Active aspirin 81 mg EC tablet Take 1 tablet (81 mg) by mouth once daily. Active butalbital-aceta minophen-caff 50-325-40 mg tablet Take [...] 1 tablet by mouth once daily. Active lancets misc 1 each. 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); G tube feedings (Multi); At risk for malnutrition 12/11/2024 Travel 12/04/2024 Travel from Last 3 Months Family History Medical History Relation Name Comments Cancer Father Daniel Bennett Hearing loss Father Daniel Bennett Vision loss Maternal Grandfather Bruno Edwards Hypertension Maternal Grandmother Claire Edwards Asthma Mother Estee Bennett Hypertension Mother Estee Bennett Vision loss Other Alexandra Bremmser Hypertension Paternal Grandmother Debora Bennett Vision loss Paternal Grandmother Debora Bennett Cancer Sister Ruthann Rios Motion Sickness Sister Ruthann Rios Relation Name Status Comments Father Daniel Bennett Alive Maternal Grandfather Bruno Edwards Alive Maternal Grandmother Claire Edwards Alive Mother Estee Bennett Alive Other Alexandra Bremmser Alive Paternal Grandmother Debora Bennett Alive Sister Ruthann Rios Alive Social History Tobacco Use Types Packs/Day Years Used Date Smoking Tobacco: Former Cigarettes 2 20 Q uit: 05/17/1983 Smokeless Tobacco: Former Tobacco Cessation:Counseling Given: No Alcohol Use Standard Drinks/Week Comments Yes 2 (1 standard drink = 0.6 oz pur e alcohol) or less or week PHQ-2 Answer Date Recorded Patient Health Questionnaire-2 Score 0 09/11/2024 Sex and Gender Information Value Date Recorded Sex Assigned at Not on file Legal Sex Male 9:24 AM EST Gender Identity Male 05/11/2024 5:56 AM EST Sexual Orientation Straight 05/11/2024 5: 56 AM EST Last Filed Vital Signs Vital Sign Reading Time Taken Comments Blood Pressure 111/69 12/11/2024 1:30 PM EDT Pulse 65 06/05/2024 2:13 PM EST Temperature 36 C (96.8 F) 09/11/2024 1:07 PM EDT Respiratory Rate 16 06/05/2024 2:13 PM EST Oxygen Saturation 96% 06/05/2024 2:13 PM EST Inhaled Oxygen Concentration - - Weight 72.7 kg (160 lb 2.6 oz) 12/11/2024 1:30 P M EDT Height 165.1 cm (5' 5 ) 09/11/2024 1:07 PM EDT Body Mass Index 26.65 09/11/2024 1:07 PM EDT Plan of Treatment Upcoming Encounters Date Type Department Care Team (Late st Contact Info) Description 06/08/2025 1:30 PM EST Office Visit [facility] [address] [place] [address] [place] [address] [place] [address] Health Maintenance Due Date Last Done Comments Diabetes: Hemoglobin A1C 1940 Diabetes: Urine Protein Screening 1940 Echocardiogram 1940 Lipid Panel 1940 Medicare Annual Wellness Visit (AWV) 1940 Diabetes: Retinopathy Screening 10/29/1949 DTaP/Tdap/Td Vaccines (1 - Tdap) 10/29/1961 COVID-19 Vaccine ( season) 2025 04/28/2023, 11/25/2021, 03/06/2021, Additional history exists Influenza [...] patient's age to complete this topic Hepatitis A Vaccines Aged Out No long [...] Basic Metabolic Panel (04/11/2024 9:14 AM EST) Glucose 109(H) 74 - 99 mg/dL LAB CHEMISTRY METHOD 04/11/2024 11:09 AM EST [facility] Sodium 142 136 - 145 mmol/L LAB CHEMISTRY METHOD 04/11/2024 11:09 AM EST [facility] Potassium 4.5 3.5 - 5.3 mmol/L LAB CHEMISTRY METHOD 04/11/2024 11:09 AM EST [facility] Chloride 107 98 - 107 mmol/L LAB CHEMISTRY METHOD 04/11/2024 11:09 AM EST [facility] Bicarbonate 25 21 - 32 mmol/L LAB CHEMISTRY METHOD 04/11/2024 11:09 AM EST [facility] Anion Gap 15 10 - 20 mmol/L LAB CHEMISTRY METHOD 04/11/2024 11:09 AM EST [facility] Urea Nitrogen 18 6 - 23 mg/dL LAB CHEMISTRY METHOD 04/11/2024 11:09 AM EST [facility] Creatinine 0.96 0.50 - 1.30 mg/dL LAB CHEMISTRY METHOD 04/11/2024 11:09 AM EST [facility] eGFR 78 >60 mL/min/1. 73m*2 LAB CHEMISTRY METHOD 04/11/2024 11:09 AM EST [facility] Comment: Calculations of estimated GFR are performed using the 2020 CKD-EPI Study Refit equation without the race variable for the IDMS-Traceable creatinine methods. https://jasn.asnjournals.org/content//ASN.8714631224 Calcium 9.9 8.6 - 10.6 mg/dL LAB CHEMISTRY METHOD 04/11/2024 11:09 AM EST [facility] Blood Venous blood specimen / Unknown Venipuncture / Unknown 04/11/2024 9:14 AM EST 04/11/2024 10:37 AM EST us Fe Max MD LAB BLOOD ORDERABLES Final Re sult [facility] Organization Address City/State/ZIP Co de Phone Number [facility] [address] [address] [place] [phone] from Last 3 Months or Most Recently Relevant to Health Maintenance Insurance [facility] MEDICARE Member Subscriber Plan / Payer (Ef fective 2023-Present) Name:Jair Bennett Relation to Subscriber:Self Name:Jair Bennett Payer ID:[id number] (NAIC) Type:Not on file Address: [address] DUAL COMPLETE [facility] MEDICARE [employer] [facility] MEDICARE [facility] DUAL COMPLETE [facility] MEDICARE [employer] Advance Directives For more information, please contact: [phone] (Available ) Documents on File Type Date Recorded Patient Playground Aide Expl anation Healthcare Power of Atty 05/11/2024 Living Will 05/11/2024 Care Teams Web Page Designer Relationship Specialty Start Date End Date Demetrius Mirza MD [address] [facility] [place] [address] PCP - General Family Medicine 04/11/24
--- OUTSIDE RECORDS SUMMARY | 2025-02-02 07:20 | XMS_ITS | Encounter Summary ---
Author Organization [facility] Address [address] [place] [address] Care Team Providers Care Naval Gunfire Spotter Name Role Phone Juan Corado MD Unavailable [phone] Demetrius Mirza MD Primary Care Provider [phone] Encounter Details Date Type Department Care Team ([facility] st Contact Info) Description 09/04/2020 External Result Encounter [facility] External Department Unsolicited Param Cosme, MAREC [address] [address] Social History Tobacco Use Types Packs/Day Years [...] Vega Jr., M.D.09/05/2020 7:53 AM Dictation Location: [place] [address] Transcribed By: [facility] 09/05/20 0753 Dictated By: Jair Vega Jr, MD 09/04/20 0956 Signed By: <Electronically signed by Jair Vega Jr, MD in OV> 09/05/20 0753 Narrative 09/05/2020 7:56 AM EDT [facility] Main [place] [address] [place] [address] MRI Report Signed Patient: Jair Bennett MR#: [id number] [id number] : 1940 Acct:[id number] Age/Sex: 79 / M ADM Date: 09/04/20 Loc: MR Room: Type: [facility] CL Attending Dr: Param Cosme DPM Copies to: Param Cosme DPM Ordering Provider: Param Cosme DPM Date of Service: 09/04/20 MR/MR ankle RT wo con: right ankle injury;Laceration of muscle(s) and tendon(s) of ([id number]) XR/XR pre/post mri xray: S86.321A MRI right [...] con Procedure Note Radiology, Radiologist, - 07/24/2024 [facility] Main [place] [address] [place], [place] [address] MRI Report Signed Patient: Jair Bennett PMR#: [id number] : 1940Acct:[id number] Age/Sex: 79 / MADM Date: 09/04/20 Loc: Room:Type: [facility] Attending Dr: Param Cosme DPM Copies to: Param Cosme DPM Ordering Provider: Param Cosme DPM Date of Service: 09/04/20 MR/MR ankle RT wo con: right ankleinjury;Laceration of muscle(s) and tendon(s) of ([id number]) XR/XR pre/post mri xray: S86.321A MRI right [...] Vega Jr., M.D.09/05/2020 7:53 AM Dictation Location: [place] [address] Transcribed By: [facility] 09/05/20 0753 Dictated By: Jair Vega Jr, MD 09/04/20 0956 Signed By: <Electronically signed by Jair Vega Jr, MDin OV> 09/05/20 0753 Param Cosme DPAdrian IMG MRI PROCEDURES Final Re sult documented in this encounter Visit Diagnoses Not on filedocumented in this encounter Care Teams Naval Gunfire Spotter Relationship Specialty Start Date End Date Demetrius Mirza MD PCP - General Family Medicine 01/26/24 Juan Corado MD Referring Physician Neurology 08/03/23 documented as of this encounter
--- OUTSIDE RECORDS SUMMARY | 2025-02-02 07:20 | XMS_ITS | Encounter Summary ---
Author Organization [facility] Address [address] [place] [address] Care Team Providers Care Landscape Account Manager Name Role Phone Mg Jack MD Primary Care Provider [phone] Demetrius Mirza MD Primary Care Provider [phone] Yajaira RoqueP-C Primary Care Provider [phone] Reason for Visit * Reason Comments Med Refill Encounter Details Date Type Department Care Team (Late st Contact Info) Description 03/14/2022 Refill [facility] [address] [place] [address] Margaret Arellano MD [address] [facility] [place] [address] [facility] [place] [address] Hypertension, unspecified type (Primary Dx); [...] Description 02/06/2025 2:15 PM EDT Ancillary Procedure [facility] [address] [place] [address] documented as of this encounter Visit Diagnoses Diagnosis Hypertension, unspecified type- Primary Mitral valve insufficiency, unspecified etiology documented in this encounter Care Teams Landscape Account Manager Relationship Specialty Start Date End Date Mg Jack MD [address] [place] [address] PCP - General 01/17/22 11/09/22 Demetrius Mirza MD [address] [place] [address] PCP - General Family Medicine 11/10/22 12/04/24 Yajaira Roque FNP-C [address] [place] [address] PCP - General Nurse Practitioner 12/05/24 documented as of this encounter
--- OUTSIDE RECORDS SUMMARY | 2025-02-02 07:20 | XMS_ITS | Encounter Summary ---
Author Organization [facility] Address [address] [place] [address] Care Team Providers Care Building Insulation Supervisor Name Role Phone Juan Corado MD Unavailable [phone] Demetrius Mirza MD Primary Care Provider [phone] Encounter Details Date Type Department Care Team (Late Contact Info) Description 03/06/2024 Orders Only [facility] Otol[facility] [address] [facility] [address] [place] [address] Consuelo Mcghee MD [address] [facility] [address] [place] [address] Social History Tobacco Use Types Packs/Day Years [...] on filedocumented in this encounter Care Teams Building Insulation Supervisor Relationship Specialty Start Date End Date Demetrius Mirza MD PCP - General Family Medicine 01/26/24 Juan Corado MD Referring Physician Neurology 08/03/23 documented as of this encounter
--- OUTSIDE RECORDS SUMMARY | 2025-02-02 07:20 | XMS_ITS | Encounter Summary ---
Author Organization [facility] Address [address] [place] [address] Phone Care Team Providers Care Supervisor Pullet Farm Name Role Phone Demetrius Mirza MD Primary Care Provider [phone] Encounter Details Date Type Department Care Team (Late st Contact Info) Description 01/27/2023 Scanned Document [facility] [address] [place] [address] Conversion, Onbase Social History Tobacco Use Types [...] Description 06/08/2025 1:30 PM EST Office Visit [facility] [address] 1st [place] [address] [place] [address] [place] [address] documented as of this encounter Procedures Procedure Name Priority Date/Time Associated Diagnosis Comments OUTSIDE GENERIC TESTING 01/27/2023 documented in this encounter Results * OUTSIDE GENERIC TESTING (01/27/2023) Anatomical Region Laterality Modality Other Narrative 01/27/2023 Ordered by an unspecified provider. us Onbase Conversion OUTSIDE SCAN Final Result documented in this encounter Visit Diagnoses Not on filedocumented in this encounter Care Teams Supervisor Pullet Farm Relationship Specialty Start Date End Date Demetrius Mirza MD [address] [facility] [place] [address] PCP - General Family Medicine 04/11/24 documented as of this encounter
--- OUTSIDE RECORDS SUMMARY | 2025-02-02 07:20 | XMS_ITS | Encounter Summary ---
Author Organization [facility] Address [address] [place] [address] Care Team Providers Care Size Mixer Name Role Phone Juan Corado MD Unavailable [phone] Sabino Cooper MD Primary Care Provider [phone] Encounter Details Date Type Department Care Team (Late st Contact Info) Description 02/29/2024 Clinisync Result Encounter N[facility]S External Department Unsolicited Consuelo Mcghee MD [address] [place] [address] [place] [address] Social History Tobacco Use Types Packs/Day Years [...] PM EDT Narrative 02/29/2024 12:54 PM EDT [address] [address] Ultrasound Report Signed Patient: JEREMIE GROSS MR#: [id number] : 1940 Acct:[id number] Age/Sex: 83 / M ADM Date: 02/29/24 Loc: US Attending Dr: Consuelo Mcghee M.D. Ordering Physician: Consuelo Mcghee M.D. Date of Service: 02/29/24 Procedure(s): US biopsy lymph node Accession Number(s): [id number] cc: SABINO COOPER ; Consuelo Mcghee M.D. [address] [address] Patient Name: JEREMIE GROSS MRN: [id number] date: 1940 Sex: M Assigned Patient Location: US Current Patient Location: Accession/Order Number: [id number] Exam Date: 02/29/2024 08:55 Report Date: 02/29/2024 [...] By: Erwin Falcon M.D. Signed By: 02/29/24 1251 DD/ 1252 TD/TT: Deputy Jailer: Procedure Note Radiology, Radiologist, MD - 02/29/[address] [address] Ultrasound Report Signed Patient: JEREMIE GROSS PMR#: [id number] : 1940Acct:[id number] Age/Sex: 83 / MADM Date: 02/29/24 Loc: US Attending Dr: Consuelo Mcghee M.D. Ordering Physician: Consuelo Mcghee M.D. Date of Service: 02/29/24 Procedure(s): US biopsy lymph node Accession Number(s): [id number] cc: SABINO COOPER ; Consuelo Mcghee M.D. The [address] [address] Patient Name: JEREMIE GROSS MRN: [id number] date: 1940 Sex: M Assigned Patient Location: US Current Patient Location: Accession/Order Number: [id number] Exam Date: 02/29/2024 08:55 Report Date: 02/29/2024 [...] Dictated By: Erwin Falcon M.D. Signed By:02/29/24 1253 DD/ 1252 TD/TT: Deputy Jailer: us Consuelo Mcghee MD IMG XR PROCEDURES Final Resul t documented in this encounter Visit Diagnoses Not on filedocumented in this encounter Care Teams Size Mixer Relationship Specialty Start Date End Date Sabino Cooper MD PCP - General Family Medicine 01/26/24 Juan Corado MD Referring Physician Neurology 08/03/23 documented as of this encounter
--- OUTSIDE RECORDS SUMMARY | 2025-02-02 07:20 | XMS_ITS | Encounter Summary ---
Author Organization [facility] Address [address] [place] [address] Care Team Providers Care Top Screw Name Role Phone Demetrius Mirza MD Primary Care Provider [phone] Yajaira Roque-C Primary Care Provider [phone] Reason for Visit * Reason Comments Med Refill Encounter Details Date Type Department Care Team (Late Contact Info) Description 08/05/2023 Refill [facility] Cardiology [address] [place] [address] Bobbi Purcell, ELECTRICAL PROJECT ENGINEER [address] [place] [address] Hypertension, unspecified type Social History [...] Upcoming Encounters Date Type Department Care Team ([facility] Contact Info) Description 02/06/2025 2:15 PM EDT Ancillary Procedure [facility] [address] [place] [address] documented as of this encounter Visit Diagnoses Diagnosis Hypertension, unspecified type documented in this encounter Care Teams Top Screw Relationship Specialty Start Date End Date Demetrius Mirza MD [address] [place] [address] PCP - General Family Medicine 11/10/22 12/04/24 Yajaira Roque FNP-C [address] [place] [address] PCP - General Nurse Practitioner 12/05/24 documented as of this encounter
--- OUTSIDE RECORDS SUMMARY | 2025-02-02 07:20 | XMS_ITS | Encounter Summary ---
Author Organization [facility] Address [address] [place] [address] Care Team Providers Care Armhole Sewer Name Role Phone Demetrius Mirza MD Primary Care Provider [phone] Yajaira Roque-Tyson Primary Care Provider [phone] Reason for Visit * Reason Comments Med Refill Encounter Details Date Type Department Care Team (Late st Contact Info) Description 02/23/[address] [address] Margaret Arellano MD [address] [facility] [place] [address] [facility] [place] [address] Coronary artery disease due to lipid rich [...] Description 02/06/2025 2:15 PM EDT Ancillary Procedure [address] [address] documented as of this encounter Visit Diagnoses Diagnosis Coronary artery disease due to lipid rich plaque documented in this encounter Care Teams Armhole Sewer Relationship Specialty Start Date End Date Demetrius Mirza MD [address] [place] [address] PCP - General Family Medicine 11/10/22 12/04/24 Yajaira Roque FNP-C [address] [place] [address] PCP - General Nurse Practitioner 12/05/24 documented as of this encounter
--- OUTSIDE RECORDS SUMMARY | 2025-02-02 07:20 | XMS_ITS | Encounter Summary ---
Author Organization [facility] Address [address] [place] [address] Care Team Providers Care Pricing Director Name Role Phone Juan Corado MD Unavailable [phone] Demetrius Mirza MD Primary Care Provider [phone] Encounter Details Date Type Department Care Team (Late st Contact Info) Description 11/13/2024 External Result Encounter NOMS External Department Unsolicited Becky Crouch, LEATHER SOFTENER [address] [place] [address] Social History Tobacco Use Types Packs/Day Years [...] Jr., D.OAidan 11/13/2024 3:50 PM Dictation Location: [place] [address] Transcribed By: PERLA 11/13/24 1550 Dictated By: Mario Urias Jr, DO 11/13/24 1539 Signed By: <Electronically signed by Mario Urias Jr, DO in OV> 11/13/24 1550 Narrative 11/13/2024 3:52 PM EDT [facility] Main [place] [address] [place] [address] Nuclear Medicine Report Signed Patient: Jair Bennett MR#: [id number] : 1940 Acct:[id number] Age/Sex: 84 / M ADM Date: 11/23/24 Loc: Room: Type: [facility] Attending Dr: Talib Faustin MD [...] Note Mario Urias Jr., DO - 11/23/2024 [facility] Main [place] [address] [place] [address] Nuclear Medicine Report Signed Patient: Jair Bennett PMR#: [id number] : 1940Acct:[id number] Age/Sex: 84 / MADM Date: 11/23/24 Loc: XT Room:Type: [facility] Attending Dr: Talib Faustin MD [...] Jr., D.O. 11/13/2024 3:50 PM Dictation Location: [place] [address] Transcribed By: [facility] 11/13/24 4120 Dictated By: Mario Urias Jr, DO 11/13/24 1531 Signed By: <Electronically signed by Mario Urias Jr, DO inOV> 11/13/24 1550 Becky Crouch LEATHER SOFTENER IMG CT PROCEDURES Edited Resu lt - Final documented in this encounter Visit Diagnoses Not on filedocumented in this encounter Care Teams Pricing Director Relationship Specialty Start Date End Date Demetrius Mirza MD PCP - General Family Medicine 01/26/24 Juan Corado MD Referring Physician Neurology 08/03/23 documented as of this encounter
--- OUTSIDE RECORDS SUMMARY | 2025-02-02 07:20 | XMS_ITS | Encounter Summary ---
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
--- OUTSIDE RECORDS SUMMARY | 2025-02-02 07:20 | XMS_ITS | Encounter Summary ---
Author Organization [facility] Address [address] [place] [address] Care Team Providers Care Packaging Engineer Name Role Phone Demetrius Mirza MD Primary Care Provider [phone] Yajaira Roque-Tyson Primary Care Provider Reason for Visit * Reason Comments Med Refill Encounter Details Date Type Department Care Team (Late st Contact Info) Description 06/04/2023 Refill [facility] [address] [place] [phone] Margaret Arellano MD [address] [facility] [place] [address] [facility] [place] [id number] Chest pain, unspecified type Social History Tobacco [...] Description 02/06/2025 2:15 PM EDT Ancillary Procedure [facility] [address] [place] [phone] documented as of this encounter Visit Diagnoses Diagnosis Chest pain, unspecified type documented in this encounter Care Teams Packaging Engineer Relationship Specialty Start Date End Date Demetrius Mirza MD [address] [place] [id number] PCP - General Family Medicine 11/10/22 12/04/24 Yajaira Roque FNP-C [address] [place] [address] PCP - General Nurse Practitioner 12/05/24 documented as of this encounter
--- OUTSIDE RECORDS SUMMARY | 2025-02-02 07:22 | XMS_ITS | CCD ---
Author Organization [facility] Care Team Providers Care Senior Data Integration Developer Name Role Phone ELTAHAWY, EHAB A Admitting Unavailable ELTAHAWY, EHAB A Attending Unavailable DEMETRIUS COOPER Referring Unavailable DEMETRIUS COOPER Primary Care Unavailable Param Cosme Attending Provider Demetrius Cooper Primary Care Provider Param Cosme Attending Provider Demetrius Cooper Primary Care Provider Leti Garcia Unavailable MG LONDON Primary Care Physician KAT Westfall Attending Provider [phone] MD Mg [place] Primary Care Provider KAT Westfall Attending Provider MD Mg [place] Primary Care Provider MD Erwin Salazar Attending Provider Erwin Saalzar Unavailable MARCE Hardy Attending Provider [phone] KAT Westfall Other Provider Demetrius Cooper Primary Care Physician Griselda Pennington Unavailable ALANNA HARDY Admitting Unavailable ALANNA HARDY Attending Unavailable LITA, DR MG Omalley Primary Care Unavailable [place], DR ERWIN Bell Consulting Unavailable ALANNA HARDY Consulting Unavailable LITA, DR MG Omalley Consulting Unavailable LITA, DR MG Omalley Attending Unavailable LITA, DR MG Omalley Admitting Unavailable LITA, DR MG Omalley Primary Care Unavailable LAKSHMIPATHY ., NARENDRANATH Consulting Lisset vailable LAKSHMIPATHY ., NARENDRANATH Attending Lisset vailable LAKSHMIPATHY ., NARENDRANATH Admitting Lisset vailable NADERER, DR MG mOalley Primary Care Unavailable STANFORD, DIEGO Attending Unavailable STANFORD, DIEGO Admitting Unavailable STANFORD, DIEGO Consulting Unavailable NADERESon, DR MG Omalley Primary Care Unavailable ABDON, SONA Attending Unavailable ABDON, SONA Admitting Unavailable ZIEBER, DR CLARISSA Cline Consulting Unavailable NADERER, DR MG Omalley Primary Care Unavailable ABDON, SOAN Consulting Unavailable NADERER, DR MG Omalley Primary [...] Unavailable LAKSHMIPATHY ., BETTY Attending Lisset vailable NADERER, DR MG Omalley [...] NADERESon, DR MG Omalley Primary Care Unavailable HIGHLANDER, ALANNA Araiza Admitting Unavailable HIGHLANDER, ALANNA Araiza Attending Unavailable NADERER, DR MG Omalley Primary Care Unavailable HIGHLANDER, ALANNA Araiza Attending Unavailable HIGHLELLA, ALANNA Araiza Admitting Unavailable NADERER, DR MG Omalley Primary Care Unavailable MISC, DR BECKER Attending Unavailable SHAIKH Jane SCOTT Consulting Unavailable MISC, DR BECKER Admitting Unavailable NADERER, DR MG Omalley Primary Care Unavailable [place], DR ERWIN Bell Consulting Unavailable ELTAHAWY, DR [...] Unavailable Boy, DAISHA Gisele Attending Provider MD Demetrius Cooper Primary Care Provider Boy Gisele Unavailable MD Erwin Salazar Attending Provider [phone] MD Demetrius Cooper Primary Care Provider MD Inez Henderson Attending Provider Esme Brunson NP Gisele Attending Provider FABIO Ruby Attending Provider Flori GARZA, Anjali Unavailable MD Demetrius Cooper Primary Care Provider DAISHA Brunson Gisele Attending Provider [phone] Clarissa Corado MD Unavailable [phone] Demetrius Cooper MD Primary Care Provider Flori GARZA, [facility] A. Unavailable MD Demetrius Cooper Primary Care Provider MD Luc Ham Jr Attending Provider UnaLuc French MD Unavailable [phone] Demetrius Cooper MD Primary Care Provider LUC HAM Referring Unavaila ble DEMETRIUS COOPER Primary Care Unavailable VAISHALI PRINGLE Attending Unavailable Unavailable Primary Care Provider UnavailDemetrius Davila MD Primary Care Provider Demetrius Cooper MD Primary Care Provider Ramin CASON, Talib Faustin Attending Provider [phone] Mary Schneider MD Referring Provider Demetrius Cooper MD Primary Care Provider Mary Schneider MD Referring Provider Dennis Gray MD Attending Provider Matteo Melo MD Attending Provider Demetrius Cooper MD Primary Care Provider Debora Wild APRN Attending Provider Mary Schneider MD Referring Provider Dennis Gray MD Attending Provider Mary Schneider MD Referring Provider Talib Faustin MD Attending Provider Demetrius Cooper Admitting Unavailable Demetrius Cooper Attending Unavailable Demetrius Cooper Admitting Unavailable Demetrius Cooper. Attending Unavailable Demetrius Cooper Attending Unavailable Al-Talib Hargrove Attending Unavailabl e Jared-Delvin, Talib Faustin Admitting Unavailabl e Mary Schneider Referring Unavailable Demetrius Cooper Primary Care Unavailable Al-Delvin, Talib Faustin Admitting Unavailabl e Al-Talib Hargrove Attending Unavailabl e Demetrius Cooper Primary Care Unavailable Matteo Melo Admitting Unavailable Matteo Melo Attending Unavailable Luc Ham Jr Admitting Unavailable Timmis Jr, Luc H Attending Unavailable Demetrius Cooper E Primary Care Unavailable Demetrius Cooper E Primary Care Unavailable Debora Wild Attending Unavailable Debora Wild Admitting Unavailable Hermes Demetrius E Primary Care Unavailable Debora Wild Attending Unavailable Debora Wild M Admitting Unavailable Debora Wild Admitting Unavailable Debora Wild Attending Unavailable Demetrius Cooper E Primary Care Unavailable Demetrius Cooper E Primary Care Unavailable Matteo Melo Admitting Unavailable Matteo Melo Attending Unavailable Demetrius Cooper MD Primary Care Provider Matteo Melo MD Attending Provider Debora Wild APRN Attending Provider [phone] Dennis Gray MD Attending Provider Maru Ma DO Attending Provider [phone] Mary Schneider MD Referring Provider Talib Faustin MD Attending Provider [phone] Dennis Gray MD Attending Provider Pepito Galicia DO Attending Provider Dennis Gray MD Attending Provider Dennis Gray MD Attending Provider Mary Schneider MD Referring Provider Dennis Gray MD Attending Provider Mary Schneider MD Referring Provider Ramin CASON, Talib Faustin Attending Provider Louie Marrero DO Emergency Provider Jaiden Nance MD Admit Provider Jaiden Nance MD Attending Provider Martha CASON, Yash Other Provider Zeke Brennan MD Attending Provider Demetrius Cooper MD Primary Care Provider [phone] Mary Schneider MD Referring Provider Talib Faustin MD Attending Provider [phone] Maru Hayes MD Emergency Provider Clarissa Corado MD Unavailable Demetrius Miller MD Primary Care Provider Matteo Melo MD Attending Provider [phone] Mary Schneider MD Referring Provider Talib Faustin MD Attending Provider Demetrius Cooper Attending Unavailable Talib Faustin Attending UnavailTalib Abernathy Admitting Unavailabl e Demetrius Cooper Attending Unavailable Demetrius Cooper Admitting Unavailable Demetrius Cooper Admitting Unavailable Yajaira Roque Attending Unavailable Demetrius Cooper Attending Unavailable MD Demetrius Cooper Attending Unavailable MD Demetrius Cooper Attending Unavailable MD Demetrius Cooper Attending Unavailable MD Demetrius Cooper Attending Unavailable Demetrius Cooper MD Primary Care Provider Becky Crouch APRN Attending Provider Gisele Brunson NP Attending Provider Debora Wild APRN Attending Provider Veena Adkins DO Attending Provider [phone] Talib Faustin MD Attending Provider Mary Schneider MD Referring Provider [phone] Dennis Gray MD Attending Provider Inez Henderson Attending Unavaila ble Demetrius Cooper Attending Unavailable Demetrius Cooper Attending Unavailable Demetrius Cooper Attending Unavailable Demetrius Cooper Attending Unavailable Demetrius Cooper Attending Unavailable Demetrius Cooper Admitting Unavailable Demetrius Cooper Attending Unavailable JORGE, STACEY Referring Unavailable BOY BUITRAGO Attending Unavailable JORGE, STACEY Referring Unavailable JORGE, STACEY Referring Unavailable JORGE, STACEY Attending Unavailable JORGE, STACEY Referring Unavailable JORGE, STACEY Referring Unavailable JORGE, STACEY Admitting Unavailable JORGE, STACEY Attending Unavailable JORGE, STACEY Referring Unavailable JORGE, STACEY Attending Unavailable Demetrius Cooper MD Primary Care Provider [phone] Debora Wild APRN Attending Provider [phone] Debora Wild APRN Other Provider Becky Crouch APRN Attending Provider Mary Schneider MD Referring Provider [phone] MARY SCHNEIDER Attending Unavailable MARY SCHNEIDER Referring Unavailable ROSS, DEMETRIUS JACKELYN Primary Care Unavailable MARY SCHNEIDER Admitting Unavailable MARY SCHNEIDER Attending Unavailable ROSS, DEMETRIUS JACKELYN Primary Care Unavailable LEIGH SCHNEIDERN Qasim Admitting Unavailable SCHNEIDERMARY MELVIN Attending Unavailable ROSS, DEMETRIUS JACKELYN Primary Care Unavailable LEIGH SCHNEIDERN N Referring Unavailable ROSS, DEMETRIUS JACKELYN Primary Care Unavailable MARY SCHNEIDER Attending Unavailable ROSS, DEMETRIUS JACKELYN Primary Care Unavailable SCHNEIDER, MARY N Referring Unavailable ROSS, DEMETRIUS JACKELYN Primary Care Unavailable MARY SCHNEIDER Attending Unavailable ROSS, DEMETRIUS JACKELYN Primary Care Unavailable MARY SCHNEIDER Attending Unavailable ROSS, DEMETRIUS JACKELYN Primary Care Unavailable Clarissa Corado MD Unavailable Matteo Melo Admitting Unavailable Ross, Demetrius E Primary Care Unavailable Matteo Melo Attending Unavailable Ross, Demetrius E Primary Care Unavailable Debora Wild Admitting Unavailable Debora Wild Attending Unavailable Ross, Demetrius E Primary Care Unavailable Debora Wild Attending Unavailable Debora Wild Admitting Unavailable Maru Hayes Attending Unavailable Ross, Demetrius E Primary Care Unavailable Maru Hayes Admitting Unavailable Ross, Demetrius E Primary Care Unavailable Jaiden Nance Admitting Unavailable Zeke Brennan Attending Unavailable Yash Thomas Unavailable Jackson, Nirmalaena R Attending Unavailable Ross, Demetrius E Primary Care Unavailable Jackson, Blossomleena R Admitting Unavailable Al-Marrawi, Mhd Yaser Attending Unavailabl e Ross, Demetrius E Primary Care Unavailable Al-Marrawi, Mhd Yaser Admitting Unavailabl e Mary Schneider Referring Unavailable Francesca, Maru Attending Unavailable Ross, Demetrius E Primary Care Unavailable Francesca, Maru Admitting Unavailable Pepito Galicia Attending Unavailable Ross, Demetrius E Primary Care Unavailable GaliciaPepito Admitting Unavailable Ross, Demetrius E Primary Care Unavailable Debora Wild Attending Unavailable JunitoDebora bae M Admitting Unavailable Ross, Demetrius E Primary Care Unavailable Debora Wild Attending Unavailable Debora Wild M Admitting Unavailable Ross, Demetrius E Primary Care Unavailable Itjodee, Veena Attending Unavailable Itzkokentrelltz, Veena Admitting Unavailable MATTEO AMBROSE Attending Unavailable JACKSON, BLOSSOMLEENA Referring Unavailable ISABEL ROMANO Attending Unavailable MATTEO AMBROSE Attending Unavailable ITZKOWITZ, VEENA H Attending Unavailable MISSY WESTFALL Attending Unavailable ITZKOKENTRELLTZ, VEENA H Attending Unavailable TIMMISBERNADINELUC H Attending Unavailable ROSS, DEMETRIUS E Referring Unavailable TIMMIS, LUC H Referring Unavailable MISSY WESTFALL Attending Unavailable TIMMIS, LUC H Attending Unavailable TIMMIS, LUC H Attending Unavailable TIMMIS LUC H Attending Unavailable ITZKOKENTRELLTZ, VEENA H Attending Unavailable YASER AL-GELACIO HARGROVE Referring Unava ilable ITZKOWITZ, VEENA H Attending Unavailable Unavailable Unavailable Unavailable Allergies Allergy Classification Reported Allergen(s) Allergy Type Date of Onset Reaction(s) Facility (3 sources) Desonide Drug Allergy 0 [facility] Repository (1 source) Niacin Drug Allergy 0 [facility] Repository (20 sources) Adhesive agent; Translations: [adhesive] Drug allergy 4 [facility] (20 sources) Niacin; Translations: [niacin] Drug Allergy 9 hives, Itching (finding), Itching, Unknown [facility] (20 sources) Adhesive bandage; Translations: [Adhesive Bandage] Allergy to substance Eruption of skin (disorder) [facility] (5 sources) Niacin Drug Allergy [employer] Other (2 sources) Niaspan Starter Pack Drug allergy (disorder) 8 [facility] Repository (15 sources) Adhesive Tape-Silicones; Translations: [ADHESIVE TAPE-SILICONES] Drug Allergy 9 Rash [facility] (20 sources) Niacin Drug Allergy 9 Itching, Unknown [facility] (20 sources) Wound Dressing Adhesive Drug Allergy 3 Unknown [facility] (4 sources) Niacin; Translations: [Niaspan ER] Drug Allergy [facility] Repository (2 sources) Niacin Drug Allergy 5 [facility] Repository Medications Current Medications Medication Drug Class(es) Dates Sig (Normalized) Sig (Original) acetaminophen 325 mg / butalbital 50 mg / caffeine 40 mg oral capsule (20 sources) Barbiturate, Central Nervous System Stimulant, Methylxanthine Start: 11-29-2023 take 1 capsule by mouth every four hours for headache Esgic 325 mg-50 mg-40 mg oral capsule 1 cap(s), Oral, q4hr for headache, 60 cap(s), Refill(s) 1, [id number], 160, cm, 11/29/23 10:29:00 EDT, Height/Length Dosing, 78.5, kg, 11/29/23 10:29:00 EDT, Weight Dosing Start Date: 11/29/23 Status: Ordered Quantity: 60.0 Unit: cap(s) Repeat number: 2 Start: 12-15-2022 End: 10-11-2024 take 1 tablet by mouth every four hours as needed ivtxflpeln-zoyfnnhcqbybi-odme 50-325-40 mg tablet Take 1 tablet by [...] MOUTH EVERY 6 HOURS, [facility] ([facility]), 163, cm, 11/04/22 15:03:00 EDT, Height/Length Dosing, 76, kg, 11/04/22 15:03:00 EDT, Weight Dosing Start Date: 11/09/22 Status: Ordered Quantity: 17.0 Unit: g Repeat number: 1 Start: 11-09-2022 Albuterol (Eqv -ProAir HFA) 90 mcg/inh inhalation aerosol See Instructions, 17 gm, Refill(s) 6, USE 2 INHALATIONS BY MOUTH EVERY 6 HOURS, [facility] ([facility]), 163, cm, 11/04/22 15:03:00 EDT, Height/Length Dosing, 76, kg, 11/04/22 15:03:00 EDT, Weight Dosing Start Date: 11/09/22 Status: Ordered {1 (Ascorbic Acid 7540 MG / POLYETHYLENE GLYCOL 3350 82332 MG / Potassium Chloride 1200 MG / Sodium Ascorbate 88619 MG / Sodium Chloride 3200 MG Powder for Oral Solution) / 1 (POLYETHYLENE GLYCOL 3350 550960 MG / Potassium Chloride 1000 MG / Sodium Chlori (5 sources) Osmotic Laxative, Vitamin C Start: 12-15-2022 Plenvu oral powder for reconstitution See Instructions, 1 EA, Refill(s) 0, Prior to colonoscopy., [id number], 163, cm, 12/15/22 12:03:00 EDT, Height/Length Dosing, [...] procedure, # 10 cap(s), Refills(s) 0, Pharmacy: [facility] #[id number], 167, cm, 04/27/22 8:46:00 EST, Height/Length Dosing, [...] 0, one scoop BID 90 day supply, [facility] #[id number], 162, cm, 08/30/23 10:00:00 EDT, Height/Length Dosing, 78.4, kg, 08/30/23 10:00:00 EDT, Weight Dosing Start Date: 09/06/23 Status: Ordered Start: 05-25-2023 End: 08-23-2023 take 4 g by mouth once daily Questran 4 g/9 g oral pow shaye 4 gm, Oral, Daily, X 90 day(s), # 90 packet(s), Refills(s) 0, Pharmacy: [facility] #[id number], 163, cm, 05/25/23 12:33:00 EST, Height/Length Dosing, 79.8, kg, 05/25/23 12:33:00 EST, Weight Dosing Start Date: 05/25/23 Stop Date: 08/23/23 Status: Ordered Dicyclomine (3 sources) Anticholinergic Dicyclomine HCl Active 72 hr fentaNYL 0.012 mg/hr transdermal system (20 sources) Opioid Agonist Start: 08-22-2024 fentaNYL 12 mcg/hr Transderm ER Film 1 patch(es), Topical, q72hr, Refill(s) 0 Start Date: 08/22/24 Status: Ordered Repeat number: 1 Start: 08-02-2024 End: 09-11-2024 Fentanyl 12 mcg/hr patch 72 hour Discontinued 1 PATCH TRANSDERML Every 72 hours 09 28August 16, 2024 September 11, 2024 10:11am Start: 06-05-2024 End: 06-05-2024 intravenous, Once PRN Proced ure, Starting on Wed06/05/24 at 1345, For 1 dose, Intraprocedure Fish Oils (7 sources) Start: 11-04-2022 [place]-3 Fish O il Oral, Daily, Refills(s) 0, Prophylaxis Start Date: 11/04/22 Status: Ordered Start: 11-04-2022 [place]-3 Fish O il Oral, Daily, Refills(s) 0 Start Date: 11/04/22 Status: Ordered fluticasone 0.05 mg/inh Nasal [place] (1 source) Start: 04-24-2020 fluticasone 0. 05 mg/inh Nasal [place] Daily, Refill(s) 0 Start Date: 04/24/20 Status: [...] with radiology test) (3 sources) Start: 02-01-20 24 iv contrast (will be provided with radiology [...] by mouth. Magnesium (5 sources) Magnesium Active 24 hr metFORMIN hydrochloride 500 mg extended release oral tablet (20 sources) Biguanide Start: 05-01-2024 take 1 tablet by mouth twice daily metFORMIN XR (Glucophage-XR) 500 MG 24 hr tablet Indications: Type 2 diabetes mellitus with hyperglycemia, without long-term current use of insulin ([facility]) TAKE 1 TABLET BY MOUTH TWICE DAILY [...] hyperglycemia, without long-term current use of insulin ([facility]) TAKE 1 TABLET BY MOUTH TWICE DAILY [...] as directed for 6 days September, Active [facility] Medication (6 sources) Start: 11-08-2023 [facility] Medication Transdermal Therapeutics up to four times per day: Meloxicam 0.5%/ Doxepin 3%/ Amantidine 3%/Dextromethorphan 2%/ Lidocaine 2% Start Date: 11/08/23 Status: Ordered Repeat number: 1 Start: 11-08-2023 [facility] Medicatio n Transdermal Therapeutics up to four [...] mouth in the morning. Active Multivitamin (Multiple Vitam ins) tablet (20 sources) Start: 06-14-2024 take 1 tablet by peggy th once daily Start: 06-14-2024 take 1 tablet by peggy th once daily Multivitamin (Multiple Vitamins) tablet Active 1 TAB PO Daily June 14, 2024 1:00am Start: 06-14-2024 take 1 tablet by peggy th once daily Multivitamin (Multiple Vitamins) tablet Active 1 TAB PO Daily June 14, 2024 12:00am Multivitamin preparation (5 sources) Multivitamin Act rosa multivitamin tablet (7 sources) take 1 tablet by mouth once daily multivitamin tablet Take 1 tablet by mouth once daily. Active Multivitamin, Therapeutic w/ Minerals (18 sources) Start: 04-24-2020 Multivitamin, Therapeutic w/ Minerals Oral, Daily, Refill(s) 0, Prophylaxis Start Date: 04/24/20 Status: Ordered Repeat number: 1 Start: 04-24-2020 Multivitamin, Therapeutic w/ Minerals Oral, Daily, Refill(s) 0, Prophylaxis Start Date: 04/24/20 Status: Ordered [place] 3 (5 sources) [place] 3 Active omega-3 acid ethyl esters (group home) 1000 mg oral capsule (20 sources) take 1 capsule by mouth in the morning omega-3 acid ethyl esters (Lovaza) 1 g capsule Take 1 g by mouth in the morning and 1 g before bedtime. Active pantoprazole 20 mg delayed release oral tablet (7 sources) Proton Pump Inhibitor Start: take 1 mg by mouth once daily Pantoprazole [address] Tab mg tab(s), Oral, Daily, Refills(s) 0 Start Date: 10/31/20 Status: Ordered Pantoprazole Sod ium Not-Taking/PRN Pantoprazole Sod ium Not-Taking Pantoprazole Sod ium Active polyethylene glycol 3350 01878 mg powder for oral solution (7 sources) Osmotic Laxative Start: 09-20-2024 Potassium Chloride (9 sources) Start: 08-30-2024 take 1 tablet by mouth twice daily Potassium Chloride (Npf-Dklk-Jxc M20) 20 mEq oral tablet, extended release TAKE 1 TABLET BY MOUTH TWICE DAILY Start Date: 08/30/24 Status: Ordered Repeat number: 1 Start: 08-23-2024 End: 10-03-2024 Potassium Chloride (Klor-Con M20) 20 mEq tablet,ER particles/crystals Discontinued 20 MEQ PO Twice daily August 23, 2024 12:00am October 03, 2024 10:25am psyllium 400 mg oral capsule (20 sources) Start: 03-10-2023 End: 08-20-2024 take 3 capsules by mouth once daily psyllium (Metamucil 3 in 1 Daily Fiber) 400 MG capsule Take 3 capsules by mouth Daily 03/10/2023 Active Start: 03-10-2023 End: 12-13-2024 take 3 capsules by mouth once daily psyllium (Metamucil) 3.4 gram packet Take 3 capsules by mouth once daily. 03/10/2023 12/13/2024 Discontinued (Med List Cleanup) Start: 03-10-2023 take 3 capsules by m outh once daily psyllium (Metamucil 3 in 1 Daily Fiber) 400 MG capsule Take 3 capsules by mouth Daily 03/10/2023 Active Start: 03-10-2023 Metamucil Refi lls(s) 0, Constipation Start Date: 03/10/23 Status: Ordered Start: 03-10-2023 Metamucil Refi lls(s) 0 Start Date: 10/25/23 Status: Ordered rimegepant 75 mg disintegrating oral [...] 1 Sennosides (Black-Draught Lax-Senna) 8.6 mg tablet (8 sources) Start: 08-02-2024 take 1 tablet by mouth once daily as needed for constipation Sennosides (Black-Draught Lax-Senna) 8.6 mg tablet Active 8.6 MG PO Twice daily as needed for constipation 60 30 August 02, 2024 12:00am Use if no bowel movement daily silver sulfADIAZINE 10 mg/ml topical cream (11 sources) Sulfonamide Antibacterial Start: 08-22-2024 SSD 1% topical cream 1 lenin, Topical, BID, Refill(s) 0, apply to neck at affected areas Start Date: 08/22/24 Status: Ordered Repeat number: 1 Start: 08-18-2024 End: 10-03-2024 Silver Sulfadiazine (Silvade ne) 1 % cream Discontinued 1 APPLIC TOPICAL Twice daily 50 August 18, 2024 12:00am October 03, 2024 10:25am Apply to open areas on radiation site, twice a day, until healed. traZODone hydrochloride 50 mg oral tablet (1 source) Serotonin Reuptake Inhibitor Start: 10-31-2020 take 1 mg by mouth once daily at bedtime traZODONE 50 mg Tab mg tab(s), Oral, Once a day (at bedtime), Refills(s) 0 Start Date: 10/31/20 Status: Ordered Tylenol PM Extra Strength (5 sources) Tylenol PM Extra Strength Active zolpidem tartrate 5 mg oral tablet (5 sources) gamma-Aminobutyr ic Acid-ergic Agonist zolpidem (AMBIEN) 5 mg tablet Take 5 mg by mouth. Active Comment on above: Take 5 mg by mouth. zonisamide 25 mg oral capsule (20 sources) Anti-epileptic Agent Start: 07-27-2023 Zonisamide Active MG PO July 27, 2023 [...] sources) Histamine-1 Receptor Antagonist Start: 06-14-2024 End: 12-13-2024 take 2 tablets by mouth once daily at bedtime as needed Diphenhydramine-A cetaminophen (Tylenol Pm Extra Strength) 25-500 mg tablet Discontinued 2 TAB PO Daily at bedtime as needed July 20, 2024 1:00am July 26, 2024 8:40am Start: 11-08-2023 take 1 tablet by [facility] once daily at bedtime Tylenol PM Oral, Once a day (at bedtime), Refill(s) 0, 250mg- 2 tabs at HS Start Date: 11/08/23 Status: Ordered take 25-500 mg by mo [facility] once as needed diphenhydrAMINE-acetaminophen (Tylenol PM) 25-500 MG per tablet Take 1 tablet by mouth as needed at bedtime for sleep Active acetaminophen 325 mg / HYDROcodone bitartrate 5 mg oral tablet (20 sources) Opioid Agonist Start: 07-20-2024 End: 07-26-2024 [...] (20 sources) beta2-Adrenergic Agonist Start: 06-14-2024 End: 10-03-2024 Albuterol Sulfate 90 mcg/actuation aerosol powdr breath [...] on above: Take 81 mg by mouth. cefpodoxime 200 mg oral tablet (9 sources) Cephalosporin Antibacterial Start: End: take 1 tablet by mouth twice daily at mealtime Cefpodoxime 200 mg tablet Discontinued 200 MG PO Twice daily 6 August 21, 2024 12:00am October 03, 2024 10:22am must administer with a meal/food clopidogrel 75 mg oral tablet (20 sources) P2Y12 Platelet Inhibitor Start: End: take 1 tablet by mouth once daily Clopidogrel (Plavix) 75 mg tablet Discontinued 75 MG PO Daily July 20, 2024 1:00am July 26, 2024 8:40am clotrimazole 10 mg oral lozenge (12 sources) Azole Antifungal Start: End: Clotrimazole 10 mg joyce Discontinued 10 MG MUCOUS MEM Five times daily 70 14 August 03, 2024 12:00am August 17, 2024 11:32am use for 10 days, if symptoms persist, then complete the 14 days dispensed dexamethasone 6 mg oral tablet (6 sources) Corticosteroid Start: take 1 tablet by mouth every twenty-four [...] 2024 1:00am July 26, 2024 8:40am Start: 07-20-2024 End: 07-26-2024 take 1 drop(s) [...] 1 drop(s) into the eye(s) twice daily Start: 07-27-2023 Dorzolamide 2 % drops Active [...] Active doxycycline monohydrate 100 mg oral capsule (20 sources) Tetracycline-class Drug Start: 07-12-2024 End: 08-20-2024 [...] Corticosteroid Start: 01-18-2024 fluticasone Nasal 0.05 mg/inh [place] See Instructions, 16 gm, Refill(s) 0, USE [...] (F LONASE) 50 mcg/actuation nasal spray 1 [place]. 08/24/2022 Active Start: 08-24-2022 take 1 spray(s) nasa l route twice daily Flonase 0.05 mg/inh [place] 1 spray(s), Nasal, BID, 16 gram, Refill(s) 0, each nostril, [facility] ([facility] ), 167.6, cm, 08/24/22 8:10:00 [...] for 30 Active Comment on above: 1 [place]. irbesartan 300 mg oral tablet (20 sources) [...] on above: Take 30 mg by mouth. lactulose 667 mg/ml oral solution (13 sources) Osmotic Laxative Start: End: take 10 g by mouth once daily for constipation Lactulose 10 gram/15 mL solution Discontinued 10 GM PO Daily as needed for constipation 450 30 August 02, 2024 12:00am August 20, 2024 6:06pm use everyday until you have a bowel movement daily. Start: 08-02-2024 End: 08-20-2024 take 10 g by mouth once daily [...] Status: Ordered Repeat number: 1 Start: 05-19-2023 End: 07-26-2024 take 1 drop(s) into the eye(s) once daily in the evening Latanoprost 0.005 % drops Discontinued 1 DROPS EYE-BOTH Every evening July 20, 2024 1:00am July 26, 2024 8:42am Start: 05-19-2023 latanoprost (X alatan) 0.005 % [...] mg/ml / prilocaine 25 mg/ml topical cream (20 sources) Antiarrhythmic, Amide Local Anesthetic Start: 07-20-2024 End: 07-26-2024 Lidocaine-Prilocaine 2.5-2.5 % cream Discontinued 2 GM TOPICAL as needed July 20, 2024 1:00am July 26, 2024 8:42am Start: 07-13-2024 End: 10-03-2024 Lidocaine-Prilocaine 2.5-2.5 % cream Discontinued 2 GM TOPICAL Once as needed for pain July 13, 2024 2:08pm October 03, 2024 10:23am Apply 1 hour prior to accessing port. Magic Mouthwash W/Lidocaine 240 Ml Bottle 240 mL bottle (20 sources) Start: 08-23-2024 End: 10-03-2024 take 10 mL by mouth four times daily as needed Magic Mouthwash W/Lidocaine 240 Ml Bottle 240 mL bottle Discontinued 10 ML PO Four times daily as needed for mucositis 240 August 23, 2024 10:14am October 03, 2024 10:23am Take 10ml by mouth, four times a day, as needed. SWISH AND SWALLOW. will call when they need refill Start: 08-23-2024 take 10 mL by mouth [...] for mucositis 240 July 19, 2024 1:00am August 20, 2024 [...] a day, as needed. SWISH AND SWALLOW. 5 ml midazolam 1 mg/ml injection (1 source) Benzodiazepine Start: 06-05-2024 End: 06-05-2024 intravenous, Once PRN Procedure, Starting on Wed06/05/24 at 1345, For 1 dose, Intraprocedure mometasone furoate 1 mg/ml topical cream (20 sources) Corticosteroid Start: 06-14-2024 End: 08-20-2024 Mometasone 0.1 % cream Discontinued 1 APPLIC TOPICAL Daily July 20, 2024 1:00am July 26, 2024 8:43am Multivitamin (One Daily Multivitamin) tablet (14 sources) Start: 07-20-2024 End: 07-26-2024 take 1 tablet by mouth once daily Multivitamin (One Daily Multivitamin) tablet Discontinued 1 TAB PO Daily July 20, 2024 1:00am July 26, 2024 8:43am nystatin [id number] unt oral tablet (20 sources) Polyene Antifungal Start: 08-17-2024 End: 11-23-2024 take 1 tablet by mouth four times daily Nystatin 500,000 unit tablet Discontinued [id number] UNIT PO Four times daily 40 10 September 14, 2024 9:24am November 23, 2024 10:01am Start: 08-02-2024 End: 08-20-2024 Nystatin 100,000 unit/mL alisia pension Discontinued [id number] UNIT PO Four times daily 224 August 02, 2024 12:00am August 20, 2024 6:07pm administer 1/2 of dose in each side of the mouth Nystatin 100,000 unit/mL suspension (8 sources) Start: 08-02-2024 End: 08-20-2024 Nystatin 100,000 unit/mL suspension Discontinued [id number] UNIT PO Four times daily 224 August 02, 2024 12:00am August 20, 2024 6:07pm administer 1/2 of dose in each side of the mouth Start: 08-02-2024 Nystatin 100,0 00 unit/mL suspension Active [id number] UNIT PO Four times daily 224 August 02, 2024 12:00am administer 1/2 of dose in each side of the mouth OLANZapine 2.5 mg oral tablet (20 sources) Atypical Antipsychotic Start: 08-09-2024 End: 11-23-2024 take 1 tablet by mouth twice daily Olanzapine 2.5 mg tablet Discontinued 2.5 MG PO Twice daily August 09, 2024 12:00am November 23, 2024 10:02am take 2 tablets by mouth at bedti me OLANZapine (ZyPREXA) 2.5 MG tablet Take 5 mg by mouth at bedtime Active omeprazole 40 mg delayed release oral [...] hours as needed for nausea and vomiting oxyCODONE hydrochloride 1 mg/ml oral solution (20 sources) Opioid Agonist Start: 08-22-2024 take 7.5 mg by mouth every eight hours as needed for pain oxycodone 5 mg/5 mL oral solution take 7.5 mg q 8 hrs as needed for pain, Refills(s) 0 Start Date: 08/22/24 Status: Ordered Repeat number: 1 Start: 07-20-2024 End: 11-23-2024 oxyCODONE (Roxicodone) 5 MG/ 5ML solution 07/20/2024 Active Start: 07-19-2024 End: 08-16-2024 [...] 1 day. 4 tablet 05/11/2024 05/12/2024 Active Prazosin (5 sources) alpha-Adrenergic Gabo Prazosi [...] PO Daily June 22, 2024 1:00am Start: 02-06-2025 Psyllium Husk (Fiber (Psyllium Husk)) 0.4 gram [...] on above: Take 10 mg by mouth. sennosides, group home 8.6 mg oral tablet (6 sources) Start: 08-02-2024 End: 11-23-2024 take 1 tablet by mouth once daily as needed for constipation Sennosides (Black-Draught Lax-Senna) 8.6 mg tablet Discontinued 8.6 MG PO Twice daily as needed for constipation 60 30 August 02, 2024 12:00am November 23, 2024 10:02am Use if no bowel movement daily Start: 05-11-2024 End: 05-13-2024 take 1 tablet by mouth once daily sennosides (Senokot) 8.6 mg tablet Indications: Acute postoperative pain Take 1 tablet (8.6 mg) by mouth once daily for 2 days. 2 tablet 05/11/2024 05/13/2024 Active sotalol hydrochloride 80 mg oral tablet (20 sources) Antiarrhythmic Start: 07-27-2023 sotalol (Betap arti) 80 mg tablet Take 1 half tablet [...] above: Take 80 mg by mouth. sucralfate 100 mg/ml oral suspension (20 sources) Aluminum Complex Start: 09-14-2024 End: 10-03-2024 take 1 mL by mouth three times daily Sucralfate 100 mg/mL suspension Discontinued 10 ML PO Three times daily 450 15 September 14, 2024 12:00am October 03, 2024 10:26am Start: 12-15-2022 sucralfate (CA RAFATE) 1 gram [...] 1:00am July 26, 2024 8:45am Start: 02-21-2021 End: 11-29-2024 take 1 tablet by mouth at bedtime [...] 01-27-2024 Chronic Cancer; other and unspecified primary (2 sources) History of malignant neoplasm of head and/or neck; Translations: [Personal history of malignant neoplasm of other organs and systems] 09-11-2024 Episodic Cancer; other and unspecified primary (2 sources) Personal history of malignant neoplasm of other organs and systems; Translations: [Personal history of malignant neoplasm of other organs and systems] Onset: 5 Episodic Cardiac dysrhythmias (20 sources) Ventricular tachycardia; Translations: [Ventricular tachycardia] Onset: 2 07-27-2023 Chronic Complication of device; implant or graft (7 sources) 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; Translations: [Atherosclerosis of coronary artery bypass graft(s) without angina pectoris] Onset: 4 05-11-2024 Chronic Conditions associated with dizziness or vertigo (4 sources) Vertigo; Translations: [Dizziness and giddiness] 02-16-2024 Episodic Conduction disorders (20 sources) Cardiac pacemaker in situ; Translations: [Presence of cardiac pacemaker] Onset: 1 04-24-2020 Chronic Coronary atherosclerosis and other heart disease (20 sources) Coronary arteriosclerosis; Translations: [Atherosclerotic heart disease of crow coronary artery without angina pectoris] Onset: 9 [...] 2 04-24-2020 Chronic Fever of unknown origin (15 sources) Fever; Translations: [Fever, unspecified] 08-20-2024 Episodic [...] insufficiency] Onset: 9 01-27-2024 Chronic Immunity disorders (17 sources) Immunosuppression; Translations: [Immunodeficiency, unspecified] Onset: 5 08-20-2024 Chronic Comment on above: noted in 08/20/2024 [facility] ED Note page 5. added per OP CDI policy. Joint disorders and dislocations; trauma-related (20 sources) Derangement of right knee; Translations: [Unspecified internal derangement of right knee] Onset: 4 01-27-2024 Chronic Neoplasms of unspecified nature or uncertain behavior (4 sources) Benign neoplasm of pancreas; Translations: [Neoplasm of unspecified behavior of digestive system] 04-02-2023 Episodic Nutritional deficiencies (20 sources) Vitamin D deficiency; Translations: [Vitamin D deficiency, unspecified] Onset: 2 04-24-2020 Chronic Osteoarthritis (20 sources) Osteoarthritis; Translations: [Arthritis of right ankle] Onset: 2 04-24-2020 Chronic Other aftercare (1 source) Other intermediate frame tender (current) drug therapy; Translations: [OTH [facility] CURRENT DRUG THERAPY] Onset: 3 Episodic Other aftercare (1 source) termite 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 (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; Translations: [MEDICAL LOGISTICS SPECIALIST CURRENT USE OF ASPIRIN] Onset: 3 Episodic Other aftercare (1 source) senior care (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 of antithrombotics/antipl atelets; Translations: [MEDICAL LOGISTICS SPECIALIST ANTITHROMBOT/ANTIPLATL ETS] Onset: 3 Episodic Other aftercare (1 source) senior care (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 of oral hypoglycemic drugs; Translations: [FCI USE ORAL HYPOGLYCEMIC DX] Onset: 3 Episodic Other aftercare (18 sources) Patient encounter status; Translations: [Encounter for palliative care] 07-06-2024 Episodic Other bone disease and musculoskeletal [...] malabsorption] Onset: 4 Chronic Other gastrointestinal disorders (20 sources) Non-infective diarrhea; 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] Onset: 4 01-27-2024 Chronic Other gastrointestinal disorders (1 source) Gastrostomy present; Translations: [Gastrostomy status] 12-13-2024 Chronic Other gastrointestinal disorders (2 sources) Gastrostomy status; Translations: [Gastrostomy status (Multi)] Onset: 5 Chronic Other gastrointestinal disorders (1 source) Heartburn [...] sources) Diarrhea 06-25-2023 Episodic Other gastrointestinal disorders (20 sources) Constipation; Translations: [Constipation, unspecified] 08-02-2024 Episodic Comment on above: Secondary to opioids , and decreased oral intake Other gastrointestinal disorders (1 source) Therapeutic opioid induced constipation 08-23-2024 Episodic Comment on above: noted in 08/16/2024 Palliative Care Consult Note page 5. added per OP CDI policy. Other gastrointestinal disorders (7 sources) Esophageal dysphagia; Translations: [Other dysphagia] 09-27-2024 Episodic Other lower respiratory disease (3 sources) Apnea, not elsewhere classified Episodic Other lower respiratory disease (7 sources) Nodule of lung; Translations: [Solitary pulmonary nodule] [...] 2 01-27-2024 Chronic Other nervous system disorders (4 sources) Polyneuropathy; Translations: [Polyneuropathy, unspecified] 02-16-2024 Chronic Other nervous system disorders (20 sources) Pain due to neoplastic disease; Translations: [...] hand 08-24-2022 Episodic Other nervous system disorders (16 sources) Acute postoperative pain; Translations: [Other acute [...] Onset: 4 07-27-2023 Chronic Residual codes; unclassified (8 sources) Obstructive sleep apnea (adult) (pediatric); Translations: [Obstructive sleep apnea (adult)(pediatric)] Chronic Residual codes; unclassified (1 source) Other hypersomnia Chronic Residual codes; unclassified (1 source) Sleep apnea, unspecified; Translations: [SLEEP APNEA UNSPECIFIED] Onset: 3 Chronic Residual codes; unclassified (20 sources) Central sleep apnea syndrome; 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] Onset: 4 09-02-2023 Chronic Residual codes; unclassified (4 sources) Primary central sleep apnea; Translations: [Unspecified sleep apnea] 09-02-2023 Chronic Residual codes; unclassified (1 source) Acquired absence of other genital organ(s); Translations: [ACQUIRED ABSENCE OTH GENITAL ORGANS] Onset: 3 Episodic Residual codes; unclassified (1 source) At risk for imbalanced nutrition, less than body requirements; Translations: [Other specified personal risk factors, not elsewhere classified] 12-13-2024 Episodic Residual codes; unclassified (2 sources) Other specified personal risk factors, not elsewhere classified; Translations: [Other specified personal risk factors, not elsewhere classified] Onset: 5 Episodic Screening and history of mental health [...] Chronic Comment on above: noted in 08/21/2024 [facility] [place] Summary page 2. added per OP [...] (8 sources) Patient encounter status 02-25-2023 Unclassified (4 sources) A [facility] screening has identified you as FRAIL or [...] to Beat the Frailty Risk [email or web address] 08-21-2024 Unclassified (1 source) Mild pulmonary hypertension 08-24-2024 Comment on above: added per 08/23/2024 query response. Unclassified (10 sources) Resume your Plavix tomorrow Unclassified (1 source) C10.9 - Malignant neoplasm of oropharynx, unspecified Urinary tract infections (1 source) Urinary tract infectious disease 04-27-2022 Episodic Viral infection (10 sources) Disease caused by 2019-nCoV; Translations: [COVID-19] Onset: Past or Other Problems Problem Classification Problem [...] Episodic Coronary atherosclerosis and other heart disease (7 sources) Stented coronary artery; Translations: [Presence of coronary angioplasty implant and graft] Onset: 05-11-2024 05-11-2024 Episodic Diseases of mouth; excluding dental (14 sources) Ulcer of mouth; Translations: [Other forms [...] unguium] Onset: 01-27-2024 Resolved: 01-27-2024 01-27-2024 Episodic Nausea and vomiting (20 sources) Nausea; Translations: [Nausea] Onset: 07-12-2024 07-12-2024 Episodic Comment on above: noted in 08/16/2024 Palliative Care Consult Note page 5. added per OP CDI policy. Nonspecific chest pain (20 sources) Chest wall pain; Translations: [Other chest pain] Onset: 04-03-2022 Resolved: 01-27-2024 02-21-2021 Episodic Other aftercare (6 sources) Encounter for palliative care; Translations: [Encounter for palliative care] Onset: 07-06-2024 07-06-2024 Episodic Other and unspecified benign neoplasm (20 [...] Onset: 04-03-2022 Resolved: 01-27-2024 01-27-2024 Episodic Other gastrointestinal disorders (20 sources) Constipation, unspecified; Translations: [Constipation, unspecified] Onset: 08-09-2024 08-02-2024 Episodic Other gastrointestinal disorders (1 source) Dysphagia, unspecified; Translations: [Dysphagia, unspecified] Onset: 10-03-2024 Episodic Other nervous system disorders (20 sources) [...] Translations: [Cyst of pancreas] Onset: 01-12-2023 Episodic Pneumonia (except that caused by tuberculosis or sexually transmitted disease) (16 sources) Pneumonia; Translations: [Pneumonia, unspecified organism] Onset: 08-20-2024 08-20-2024 Episodic Residual codes; unclassified (20 sources) FH: Stomach cancer; Translations: [Family history of malignant neoplasm of digestive organs] Onset: 04-14-2023 12-15-2022 Episodic Residual codes; unclassified (20 sources) Insomnia; Translations: [Insomnia, unspecified] Onset: 04-03-2022 01-27-2024 Episodic Residual codes; unclassified (20 sources) Edema of lower extremity; Translations: [Localized edema] Onset: 04-26-2019 01-27-2024 Episodic Residual codes; unclassified (19 sources) Difficult venous access; Translations: [Other specified [...] [LOW BACK PAIN, UNSPECIFIED] Onset: 08-25-2022 Unclassified (7 sources) Onset: 04-07-2024 Resolved: 12-11-2024 04-07-2024 Viral infection (20 sources) Disease caused by 2019-nCoV; Translations: [COVID-19] Onset: 11-10-2022 Resolved: 01-27-2024 01-27-2024 Episodic Results Test Name Value Interpretation Reference Range Facility Office Visiton 12-05-2024 Follow-up visit [id number] [address] P 1940 M Date Provider Department Center 12/05/2024 STACEY ERNANDEZ [facility] Family History Problem Relation Age of Onset Coronary artery disease Mother Kidney disease Mother Heart failure Mother Family Status - Relation Status Age at Mother Father Level of Service:73957 [place] OFFICE/OUTPATIENT ESTABLISHED LOW MDM 20 MIN Normal [facility] Ambulatory Visit Summaryon 0 11-21-2024 Ambulatory Visit Summary Ambulatory Visit Summary JEREMIE BENNETT :1940 Visit Date:11/21/2024 Ambulatory Visit Instructions Your Diagnosis Encounter for subsequent annual wellness visit (AWV) in Medicare patient Mild pulmonary hypertension 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 Discharge Vitals Heart Rate (Peripheral) 59 Blood Pressure 110/58 Height 160 cm Height 63 in Weight 72.9 kg Weight 160.717 lb BMI 28.48 Medications What How Much When Instructions Unchanged [...] fluticasone nasal (fluticasone Nasal 0.05 mg/ inh [employer]) See instructions USE 1 SPRAY IN BOTH [...] w/ Minerals) By Mouth Every day Unchanged nystatin (nystatin 100,000 units/ mL Oral Susp) 4 Milliliter By Mouth 4 times a day Unchanged olanzapine (olanzapine 2.5 mg Tab) See instructions 1 tab(s) Oral twice daily Unchanged omeprazole (omeprazole 40 mg Cap-DR) See [...] are currently receiving treatment for. Bloating BMI 28.0-28.9,adult Cancer associated pain Cervical lymphadenopathy Cervical spondylosis Chronic GERD Constipation due to opioid therapy Coronary artery disease 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 Diabetic autonomic neuropathy associated with type 2 diabetes mellitus Diverticulosis FH: stomach cancer Former smo (more content not included)... Normal [facility] Medicine Office/Clini c Noteon 11-21-2024 Family Medicine Office/Clinic Note Family Medicine Office/Clinic Note Chief Complaint Subsequent Medicare Wellness Review of Systems PHQ Score Initial Depression Screen Score: 0 SCORE Physical Exam Vitals & Measurements HR: 59(Peripheral) BP: 110/58 SpO2: 94% HT: 160 cm HT: 63 in WT: 160.717 lb WT: 72.9 kg BMI: 28.48 Procedure I was in the office and available for consultation and to provide direct supervision at the time of this visit. I have provided supervision of the care team and have reviewed this chart and office note and agree with the plan of care. Assessment/Plan 1. Encounter for subsequent annual wellness visit (AWV) in Medicare patient (Z00.00: Encounter for general adult medical examination without abnormal findings) Patient in office today for his Subsequent Medicare Wellness Visit. A customized and personalized print out of all the current AHRQ USPSTF???s recommendations for preventative services and all current CDC recommended immunizations, relevant risk recommendations and the following patient brochures were given. Reviewed What can I expect during my Medicare preventative care visit CDC-Falls Prevention and home safety screening reviewed. Patient denies any falls in last 12 months, voices no worry about falling, exhibits no problems with sitting and standing. Pt voices understanding with keeping walk way area free of clutter to prevent tripping and/or falling. [place] Advance Directives reviewed, present at home. Encouraged to bring in to scan into chart. Patient denies any problems with ADL???s and Instrumental ADL???s. Cognitive screening completed with memory and clock face drawing. Immunization Record reviewed with the patient. Shingrix vaccine have been administered. Pneumonococcal vaccines received. 2 COVID vaccines have been administered, 4 boosters received. Immunization record is up to date. Allergies and medications reviewed and up to date. Patient denies concerns with taking medication as prescribed, reviewed OTC medications with patient with medication list up to date. Blood tests were reviewed: Discussed what tests need to be updated. Colonoscopy last done 06/14/[address] Henderson. Reviewed concerns with bladder control over past 6 months with no concerns. Reviewed pain symptoms with patient: Patient denies pain. Reviewed all outside providers that patient follows. Last visit summary notes available in chart and/or have been requested. Follow up scheduled not scheduled as patient reports he will be following previous provider. AWV has been scheduled not scheduled as patient reports he will be following previous provider. Medicare provides yearly screening for alcohol and depression concerns. This is completed during our Medicare wellness visit for those who do not have a current diagnosis of depression or concerns with alcohol use. I spent a total of( 12) minutes on this date of service which included preparing to see the patient, face to face patient care, completing clinical documentation, obtaining and/or reviewing separately obtained history, counseling and educating the patient with handouts. Explanations were provided with reviewing questionnaires. AUDIT risk assessment screening completed, risk score(1) with patient denying concerns with use. Completed PHQ-2 risk assessment for depression with risk score(0), negative findings. Patient has been reminded to notify the provider if there would be a change or concerns with symptoms with fear, unable to sleep, worrying too much or feeling down and/or sad with lost of interest with daily activities. Will continue to monitor with screening yearly during Medicare wellness visits. 2. Mild pulmonary hypertension (I27.20: Pulmonary hypertension, unspecified) Patient is taking amlodipine daily as directed. Does not monitor BP pressure at home. HTN stoplight reviewed with BP goal to be <140/90. Reviewed different factors that can alter blood pressure readings. Education handout provided with s/s to monitor for and report to provider. Patient is encouraged to increase portions of fruit, vegetables, fiber and increase exercise as much as tolerable. Reviewed importance with monitoring foods high in salt content and encouraged to limit intake, if unsure encouraged to discuss with their PCP. Encouraged to eat more chicken, fish and lean white meats and limits red meats in diet. Discussed importance with keeping BP under good control to reduce CVA risk factors. Will continue to f/u with PCP during office visits and as needed. 3. Diabetic autonomic neuropathy associated with type 2 diabetes mellitus (E11.43: Type 2 diabetes mellitus with diabetic autonomic (poly)neuropathy) Patient is compliant on current DM medications. Patient does monitors BS at home: DM stoplight handout reviewed with s/s to monitor for and report to PCP. Discussed ADA dietary recommendations with low carbs and reduce sugar intake. Patient encouraged to increase daily physical activity, adequate water intake and maintain a healthy weight. (more content not included)... Normal [facility] Comment on above: Result Comment: Elec tronically Signed By: MARICRUZ TREVINO CNP\.br\Date and Time Signed: 11/21/24 16:03 EDT\.br\Electronically Co-Signed By: Monse Puckett\.br\Date and Time Co-Signed: 11/21/24 14:59 EDT Alanine aminotransferase [En zymatic activity/volume] in Serum or PlasmaOrdered By: Elif Carroll on 11-13-2024 ALT [Catalytic activity/Vol] 14 U/L Normal 7-52 [facility] Comment on above: Performed By: #### M G, SCAN CBC, CMP #### [facility] [address] Albumin [Mass/volume] in Ser um or Plasma by Bromocresol green (BCG) dye binding methoOrdered By: Elif Carroll on 11-13-2024 Albumin BCG dye [Mass/Vol] 4.2 g/dL 3.5-5.7 [facility] Alkaline phosphatase [Enzyma tic activity/volume] in Serum or PlasmaOrdered By: Elif Carroll on 11-13-2024 ALP [Catalytic activity/Vol] 80 U/L Normal 34-104 [facility] Comment on above: Performed By: #### M G, SCAN CBC, CMP #### [facility] [address] Aspartate aminotransferase [ Enzymatic activity/volume] in Serum or PlasmaOrdered By: Elif Carroll on 11-13-2024 AST [Catalytic activity/Vol] 15 U/L Normal 13-39 [facility] Comment on above: Performed By: #### M G, SCAN CBC, CMP #### [facility] [address] [place] [address] [place] Basophils [#/volume] in Bloo d by Automated countOrdered By: Elif Carroll on 11-13-2024 Basophils (Bld) [#/Vol] 0.0 10*3/uL Normal 0.0-0.2 [facility] Comment on above: Performed By: #### M G, SCAN CBC, CMP #### [facility] [address] [place] [address] [place] Basophils/100 leukocytes in Blood by Automated countOrdered By: Elif Carroll on 11-13-2024 Basophils/100 WBC (Bld) 0.5 % Normal . [facility] Comment on above: Performed By: #### M G, SCAN CBC, CMP #### [facility] [address] [place] [address] [place] Bilirubin.total [Mass/volume ] in Serum or PlasmaOrdered By: Elif Carroll on 11-13-2024 Bilirubin [Mass/Vol] 0.4 mg/dL Normal 0.3-1.0 [facility] Comment on above: Performed By: #### M G, SCAN CBC, CMP #### [facility] [address] Calcium [Mass/volume] in Ser um or PlasmaOrdered By: Elif Carroll on 11-13-2024 Calcium [Mass/Vol] 9.3 mg/dL Normal 8.6-10.3 [facility] Comment on above: Performed By: #### M G, SCAN CBC, CMP #### [facility] [address] Capillary blood glucose juan urement by glucometer (mass/volume)Ordered By: Talib Faustin on 11-13-2024 Glucose [Mass/Vol] 114 mg/dL Normal [facility] Comment on above: Random Glucose Refer ence Range is dependent on time and content of last meal. Glucose of more than 200 mg/dL in a nonstressed, ambulatory subject supports the diagnosis of Diabetes Mellitus. Result Comment: [place] Glucose Reference Range is dependent on time and content of last meal. Glucose of more than 200 mg/dL in a nonstressed, ambulatory subject supports the diagnosis of Diabetes Mellitus. PERFORMED BY: [place] [address] PATHOLOGIST RETAIL [employer] MANAGER AD ROSENBAUM M.D. Performed By: #### G LULS #### Point of Care testing , Carbon dioxide, total [Moles /volume] in Serum or PlasmaOrdered By: Elif Carroll on 11-13-2024 CO2 [Moles/Vol] 26.6 mmol/L Normal 21.0-31.0 [facility] Comment on above: Performed By: #### M G, SCAN CBC, CMP #### [facility] [address] Chloride [Moles/volume] in S stephanie or PlasmaOrdered By: Elif Carroll on 11-13-2024 Chloride [Moles/Vol] 104 mmol/L Normal 98-107 [facility] Comment on above: Performed By: #### M G, SCAN CBC, CMP #### [facility] [address] Comprehensive Metabolic Pane obdulio 11-13-2024 Albumin [Mass/Vol] 4.2 g/dL Normal 3.5-5.7 [facility] Comment on above: Performed By: #### M G, SCAN CBC, CMP #### [facility] [address] Creatinine Clr Calc Pharmacy 60.92 Normal [facility] Comment on above: Performed By: #### M G, SCAN CBC, CMP #### [facility] [address] [place] [address] [place] GFR/1.73 sq M.predicted MDRD (S/P/Bld) [Vol rate/Area] mL/min/{1.73_m2} Normal [facility] Comment on above: Performed By: #### M G, SCAN CBC, CMP #### [address] Creatinine [Mass/volume] in Serum or PlasmaOrdered By: Elif Carroll on 11-13-2024 Creatinine [Mass/Vol] 0.80 mg/dL Normal 0.70-1.30 [facility] Comment on above: Performed By: #### M G, SCAN CBC, CMP #### [place] [address] [place] Eosinophils [#/volume] in Bl ood by Automated countOrdered By: Elif Carroll on 11-13-2024 Eosinophils (Bld) [#/Vol] 0.2 10*3/uL Normal 0.0-0.45 [facility] Comment on above: Performed By: #### M G, SCAN CBC, CMP #### [facility] [address] [place] [address] [place] Eosinophils/100 leukocytes i n Blood by Automated countOrdered By: Elif Carroll on 11-13-2024 Eosinophils/100 WBC (Bld) 2.9 % Normal . [facility] Comment on above: Performed By: #### M G, SCAN CBC, CMP #### [place] [address] [place] Erythrocyte distribution wid th [Ratio] by Automated countOrdered By: Elif Carroll on 11-13-2024 Erythrocyte distribution width (RBC) [Ratio] 14.7 % Normal 12.0-14.8 [facility] Comment on above: Performed By: #### M G, SCAN CBC, CMP #### [facility] [address] Erythrocyte morphology findi ng [Identifier] in BloodOrdered By: Elif Carroll on 11-13-2024 RBC morphology finding Nom (Bld) Normal Normal Normal [facility] Comment on above: Performed By: #### M G, SCAN CBC, CMP #### [facility] [address] Erythrocytes [#/volume] in B lood by Automated countOrdered By: Elif Carroll on 11-13-2024 RBC (Bld) [#/Vol] 4.11 10*6/uL Normal 3.90-5.60 [facility] Comment on above: Performed By: #### M G, SCAN CBC, CMP #### [facility] [address] [place] [address] [place] Glucose [Mass/volume] in Ser um or PlasmaOrdered By: Elif Carroll on 11-13-2024 Glucose [Mass/Vol] 108 mg/dL High 70-100 [facility] Comment on above: ADA recommended refe rence rangeRandom Glucose Reference Range is dependent on time and content of last meal. Glucose of more than 200 mg/dL in a nonstressed, ambulatory subject supports the diagnosis of Diabetes Mellitus. Result Comment: [place] om Glucose Reference Range is dependent on time and content of last meal. Glucose of more than 200 mg/dL in a nonstressed, ambulatory subject supports the diagnosis of Diabetes Mellitus. ADA recommended reference range Performed By: #### M G, SCAN CBC, CMP #### [facility] [address] [place] [address] [place] Hematocrit [Volume Fraction] of Blood by Automated countOrdered By: Elif Carroll on 11-13-2024 Hematocrit (Bld) [Volume fraction] 38.5 % Low 38.8-50.0 [facility] Comment on above: Performed By: #### M G, SCAN CBC, CMP #### [facility] [address] Hemoglobin [Mass/volume] in BloodOrdered By: Elif Carroll on 11-13-2024 Hemoglobin (Bld) [Mass/Vol] 12.8 g/dL Low 13.0-17.0 [facility] Comment on above: Performed By: #### M G, SCAN CBC, CMP #### [address] Leukocytes [#/volume] correc suzy for nucleated erythrocytes in Blood by Automated counOrdered By: Elif Carroll on 11-13-2024 WBC corrected for nucl RBC Auto (Bld) [#/Vol] 8.5 10*3/uL 4.1-10.5 [facility] Leukocytes [#/volume] in Blo od by Automated countOrdered By: Elif Carroll on 11-13-2024 WBC (Bld) [#/Vol] 8.5 10*3/uL Normal 4.1-10.5 [facility] Comment on above: Performed By: #### M G, SCAN CBC, CMP #### [address] Lymphocytes [#/volume] in Bl ood by Automated countOrdered By: Elif Carroll on 11-13-2024 Lymphocytes (Bld) [#/Vol] 1.9 10*3/uL Normal 1.00-4.8 [facility] Comment on above: Performed By: #### M G, SCAN CBC, CMP #### [facility] [address] [place] [address] [place] Lymphocytes/100 leukocytes i n Blood by Automated countOrdered By: Elif Carroll on 11-13-2024 Lymphocytes/100 WBC (Bld) 22.1 % Normal . [facility] Comment on above: Performed By: #### M G, SCAN CBC, CMP #### [place] [address] [place] MCH [Entitic mass] by Automa suzy countOrdered By: Elif Carroll on 11-13-2024 MCH (RBC) [Entitic mass] 31.1 pg Normal 27.5-35.2 [facility] Comment on above: Performed By: #### M G, SCAN CBC, CMP #### [facility] [address] MCHC Auto (RBC) [Mass/Vol]Or dered By: Elif Carroll on 11-13-2024 MCHC (RBC) [Mass/Vol] 33.2 g/dL 32.5-35.6 [facility] MCV [Entitic volume] by Auto mated countOrdered By: Elif Carroll on 11-13-2024 MCV (RBC) [Entitic vol] 93.7 fL Normal 83.5-101 [facility] Comment on above: Performed By: #### M G, SCAN CBC, CMP #### [address] Magnesium [Mass/volume] in S stephanie or PlasmaOrdered By: Elif Carroll on 11-13-2024 Magnesium [Mass/Vol] 2.1 mg/dL Normal 1.9-2.7 [facility] Comment on above: Result Comment: PERF ORMED BY: [place] [address] PATHOLOGIST [employer] MANAGER AD ROSENBAUM M.D. Performed By: #### M G, SCAN CBC, CMP #### [place] [address] [place] Monocytes [#/volume] in Bloo d by Automated countOrdered By: Elif Carroll on 11-13-2024 Monocytes (Bld) [#/Vol] 0.8 10*3/uL Normal 0.0-0.8 [facility] Comment on above: Performed By: #### M G, SCAN CBC, CMP #### [facility] [address] [place] [address] [place] Monocytes/100 leukocytes in Blood by Automated countOrdered By: Elif Carroll on 11-13-2024 Monocytes/100 WBC (Bld) 9.2 % Normal . [facility] Comment on above: Performed By: #### M G, SCAN CBC, CMP #### [facility] [address] [place] [address] [place] Neutrophils [#/volume] in Bl ood by Automated countOrdered By: Elif Carroll on 11-13-2024 Neutrophils (Bld) [#/Vol] 5.6 10*3/uL Normal 1.8-7.7 [facility] Comment on above: Performed By: #### M G, SCAN CBC, CMP #### [facility] [address] [place] [address] [place] Neutrophils/100 leukocytes i n Blood by Automated countOrdered By: Elif Carroll on 11-13-2024 Neutrophils/100 WBC (Bld) 65.3 % Normal . [facility] Comment on above: Performed By: #### M G, SCAN CBC, CMP #### [facility] [address] No Panel InformationOrdered By: Elif Carroll on 11-13-2024 Estimated GFR (CKD-EPI) > 60.0 mL/Min [facility] Creatinine Clearance (Chem 60.92 [facility] Nucleated erythrocytes [Pres ence] in Blood by Automated countOrdered By: Elif Carroll on 11-13-2024 Nucleated RBC Auto Ql (Bld) 0.2 /100{WBC} 0-0.5 [facility] PET tumor subq tx strat sb-m ton 11-13-2024 PET tumor subq tx strat sb-mt [facility] [place] [address] Nuclear Medicine Report Signed Patient: Jeremie Bennett MR#: [id number] : 1940 Acct:[id number] Age/Sex: 84 / M ADM Date: 11/23/24 Loc: XT Room: Type: [facility] RCR Attending Dr: Talib Faustin MD Copies to: Mario Urias Jr, DO RAYSHAWN Hilliard MD Norleena Poynter, MD Ordering Provider: Becky [...] Jr., D.OAidan 11/13/2024 3:50 PM Dictation Location: [place] [address] Transcribed By: [facility] 11/13/24 1550 Dictated By: Mario Urias Jr, DO 11/13/24 1539 Signed By: 11/13/24 1550 Normal [facility] Platelet adequacy [Presence] in Blood by Light microscopyOrdered By: Elif Carroll on 11-13-2024 Platelets LM Ql (Bld) Normal Normal [facility] Platelet mean volume [Entiti c volume] in Blood by Automated countOrdered By: Elif Carroll on 11-13-2024 Platelet mean volume (Bld) [Entitic vol] 8.4 fL Normal 6.6-10.1 [facility] Comment on above: Performed By: #### M G, SCAN CBC, CMP #### [facility] [address] Platelet morphology finding [Identifier] in BloodOrdered By: Elif Carroll on 11-13-2024 Platelet morphology finding Nom (Bld) Normal Normal [facility] Platelets [#/volume] in Bloo d by Automated countOrdered By: Elif Carroll on 11-13-2024 Platelets (Bld) [#/Vol] 223 10*3/uL Normal 150-450 [facility] Comment on above: Performed By: #### M G, SCAN CBC, CMP #### [facility] [address] [place] [address] [place] Potassium [Moles/volume] in Serum or PlasmaOrdered By: Elif Carroll on 11-13-2024 Potassium [Moles/Vol] 4.2 mmol/L Normal 3.5-5.1 [facility] Comment on above: Performed By: #### M G, SCAN CBC, CMP #### [address] Protein [Mass/volume] in Ser um or PlasmaOrdered By: Elif Carroll on 11-13-2024 Protein [Mass/Vol] 7.3 g/dL Normal 6.4-8.9 [facility] Comment on above: Performed By: #### M G, SCAN CBC, CMP #### [address] Scan and CBCon 11-13-2024 Mean Corpuscular HGB Conc 33.2 g/dL Normal 32.5-35.6 [facility] Comment on above: Performed By: #### M G, SCAN CBC, CMP #### [address] NRBC% 0.2 /100{WBC} Normal 0-0.5 [facility] Comment on above: Performed By: #### M G, SCAN CBC, CMP #### [address] Platelet Estimate Normal Normal Normal [facility] Comment on above: Performed By: #### M G, SCAN CBC, CMP #### [address] Platelet Morphology Normal Normal Normal [facility] Comment on above: Result Comment: PERF ORMED BY: [place] [address] PATHOLOGIST [employer] MANAGER AD ROSENBAUM M.D. Performed By: #### M G, SCAN CBC, CMP #### [address] White Blood Count 8.5 [CFU]/mL Normal 4.1-10.5 [facility] Comment on above: Performed By: #### M G, SCAN CBC, CMP #### [facility] [address] [place] [address] Serum globulin measurement b y calculation (mass/volume)Ordered By: Elif Carroll on 11-13-2024 Globulin (S) [Mass/Vol] 3.1 g/dL [facility] Comment on above: Performed By: #### M G, SCAN CBC, CMP #### [facility] [address] [place] [address] Serum or plasma albumin/glob ulin mass ratioOrdered By: Elif Carroll on 11-13-2024 Albumin/Globulin [Mass ratio] 1.4 {ratio} [facility] Comment on above: Performed By: #### M G, SCAN CBC, CMP #### [address] Serum or plasma anion gap de terminationOrdered By: Elif Carroll on 11-13-2024 Anion gap [Moles/Vol] 10.6 mmol/L Normal 6.0-15.0 [facility] Comment on above: Performed By: #### M G, SCAN CBC, CMP #### [address] Sodium [Moles/volume] in Ser um or PlasmaOrdered By: Elif Carroll on 11-13-2024 Sodium [Moles/Vol] 137 mmol/L Normal 136-145 [facility] Comment on above: Performed By: #### M G, SCAN CBC, CMP #### [facility] [address] [place] [address] Urea nitrogen [Mass/volume] in Serum or PlasmaOrdered By: Elif Carroll on 11-13-2024 Urea nitrogen [Mass/Vol] 29 mg/dL High 7-25 [facility] Comment on above: Performed By: #### M G, SCAN CBC, CMP #### [address] Ambulatory Visit Summaryon 0 2024 Ambulatory Visit Summary Ambulatory Visit Summary JEREMIE BENNETT :1940 Visit Date:2024 Ambulatory Visit Instructions Your Diagnosis Dysphagia, unspecified Candidal esophagitis Your Care Team Attending Physician - Demetrius Cooper MD Primary Care Physician - Demetrius Cooper MD This Is Your Medications List nystatin (nystatin 100,000 units/mL Oral Susp) Contact prescribing physician if questions or concerns APAP/butalbital/caffeine (Esgic 325 mg-50 mg-40 mg oral capsule) albuterol (Albuterol (Eqv-ProAir HFA) 90 mcg/inh inhalation aerosol) amlodipine (amLODIPine 5 mg Tab) aspirin (Aspir 81) clopidogrel (Plavix 75 mg Tab) dorzolamide ophthalmic (dorzolamide ophthalmic 2% solution) famotidine (Pepcid 20 mg Tab) fentanyl (fentaNYL 12 mcg/hr Transderm ER Film) fluticasone nasal (fluticasone Nasal 0.05 mg/inh [employer]) furosemide (furosemide 20 mg Tab) irbesartan (irbesartan [...] excision, Tonsillectomy, Vasectomy. Discharge Vitals Temperature (Oral) 36.4 ???C Heart Rate (Peripheral) 74 Respiratory Rate 18 Blood Pressure 128/84 Height 160.0 cm Height 63 in Weight 70.1 kg Weight 154.544 lb BMI 27.38 What to do next Scheduled Follow-Up Appointments Wednesday 2:30 PM EDT With: Where: [address] [address]- Wednesday 1:20 PM EDT With: Hermes CASON, Demetrius Rosa Where: [address] [address]- Medications What How Much When Instructions Unchanged nystatin (nystatin 100,000 units/ mL Oral Susp) 4 Milliliter By Mouth 4 times a day Pickup at [facility] #[id number] Unchanged albuterol (Albuterol (Eqv-ProAir HFA) 90 mcg/ [...] prescribing physician if questions or concerns Unchanged fentanyl (fentaNYL 12 mcg/ hr Transderm ER Film) 1 Patches Topical Every 72 hours Contact prescribing physician if questions or concerns Unchanged fluticasone nasal (fluticasone Nasal 0.05 mg/ inh [employer]) See instructions USE 1 SPRAY IN BOTH [...] prescribing physician if questions or concerns Unchanged olanzapine (olanzapine 2.5 mg Tab) See instructions 1 tab(s) Oral twice daily Contact prescribing physician if questions or concerns Unchanged omeprazole (omeprazole 40 mg Cap-DR) See instructions TAKE 1 CAPSULE BY (more content not included)... Normal [facility] Family Medicine Office/Clini c Noteon 2024 Family Medicine Office/Clinic Note Family Medicine Office/Clinic Note Chief Complaint - The patient presents with difficulty swallowing and requires a medication refill. HPI Staff Jeremie is a 84 year old male presenting with thrush in mouth Onset: Wednesday Going through Chemo 3 round he noticed this Magic mouth wash was given to him for this... start keeping it from getting worse doesn't think it is helping History of Present Illness - The patient is an 84-year-old male presenting with medication refill and evaluation of swallowing difficulties. - Dysphagia: The patient reports mild difficulty swallowing, which has not progressed to the point of affecting his ability to eat. - Oral thrush: The patient has been experiencing oral thrush, for which he requires a refill of nystatin. Review of Systems PHQ Score Initial Depression Screen Score: 0 SCORE Physical Exam Vitals & Measurements T: 36.4 ???C(Oral) HR: 74(Peripheral) RR: 18 BP: 128/84 SpO2: 99% HT: 63 in HT: 160.0 cm WT: 154.544 lb WT: 70.1 kg BMI: 27.38 General: alert, no acute distress ENMT: oral mucosa moist Cardiovascular: Regular rate and rhythm, normal peripheral perfusion Respiratory: Lungs clear to auscultation, respirations non labored Extremities: no deformity, no trauma Neurological: oriented x 4, level of consciousness appropriate for age, CN II-XII intact, motor strength equal & normal bilaterally, speech normal Abdomen: Soft, Non-tender, Non-distended, + Bowel sounds Assessment/Plan 1. Dysphagia, unspecified (R13.10) - Monitor swallowing difficulties and ensure adequate nutritional intake. 2. Candidal esophagitis (B37.81) - Refill nystatin prescription to manage oral thrush. Orders: nystatin, 400,000 unit(s) = 4 mL, Oral, QID, # 112 mL, Refills(s) 1, [id number], 160, cm, 10/30/24 17:38:00 EDT, Height/Length Dosing, 70.1, kg, 10/30/24 17:38:00 EDT, Weight Dosing - 84-year-old male with a history of oral thrush presenting with medication refill and evaluation of swallowing difficulties. - Dysphagia: The patient reports mild difficulty swallowing, which has not progressed to the point of affecting his ability to eat. - Oral thrush: The patient has been experiencing oral thrush, for which he requires a refill of nystatin. During the visit, we discussed the patient's mild dysphagia and the need for a nystatin refill to manage oral thrush. I advised monitoring his swallowing difficulties and ensuring adequate nutritional intake. We also talked about the possibility of placing refills on his medication to avoid unnecessary visits. - Continue taking nystatin as prescribed for oral thrush. - Monitor swallowing difficulties and ensure you are eating enough. - Contact the clinic if swallowing difficulties worsen or if there are any concerns. Follow-up No qualifying data available Problem List/Past Medical History Ongoing Bloating Cancer associated pain Cervical lymphadenopathy Cervical spondylosis Chronic GERD Constipation due to opioid therapy Coronary artery disease 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 Diabetic autonomic neuropathy [...] patch(es), Topical, q72hr fluticasone Nasal 0.05 mg/inh [employer], See Instructions furosemide 20 mg Tab, 20 mg= 1 tab(s), Oral, Daily irbesartan 300 mg Tab, 300 mg= 1 tab(s), Oral, Daily isosorbide mononitrate, 30 mg, Oral, qAM latanoprost Opth 0.005% Janee metformin 500 mg ER T (more content not included)... Normal [facility] Comment on above: Result Comment: Elec tronically Signed By: Demetrius Cooper MD\.br\Date and Time Signed: 10/30/24 18:01 EDT Ambulatory Visit Summaryon 0 10-12-2024 Ambulatory Visit Summary Ambulatory Visit Summary JEREMIE BENNETT Annabelle :1940 Visit Date:10/12/2024 Ambulatory Visit Instructions Your Diagnosis Dysphagia, unspecified Overweight (BMI 25.0-29.9) Former smoker Adult BMI 27.0-27.9 kg/sq m Post-nasal drip Your Care Team Attending Physician - Demetrius [...] Film) fluticasone nasal (fluticasone Nasal 0.05 mg/inh [employer]) furosemide (furosemide 20 mg Tab) irbesartan (irbesartan [...] Temperature (Oral) 36.3 ???C Heart Rate (Peripheral) 72 Respiratory Rate 20 Blood Pressure 104/88 Height 160.0 cm Height 63 in Weight 69.5 kg Weight 153.221 lb BMI 27.15 What to do next Scheduled Follow-Up Appointments Wednesday 2:30 PM EDT With: Where: [address] [id number]- Wednesday 3:20 PM EDT With: Hermes CASON, Demetrius Rosa Where: [address] [phone]- Medications What How Much When Instructions Unchanged [...] fluticasone nasal (fluticasone Nasal 0.05 mg/ inh [employer]) See instructions USE 1 SPRAY IN BOTH [...] day Unchanged olanzapine (olanzapine 2.5 mg Tab) See instructions 1 tab(s) Oral twice daily Unchanged omeprazole (omeprazole 40 mg Cap-DR) See [...] you are currently receiving treatment for. Bloating Cancer associated pain Cervical lymphadenopathy Cervical spondylosis Chronic GERD Constipation due to opioid therapy Coronary artery disease 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 Diabetic autonomic neuropathy associated with type 2 diabetes mellitus Diverticulosis FH: stomach can (more content not included)... Normal [facility] Ambulatory Visit Summary Ambulatory Visit Summary JEREMIE BENNETT :1940 Visit Date:10/12/2024 Ambulatory Visit Instructions Your Diagnosis Overweight (BMI 25.0-29.9) Former smoker Adult BMI 27.0-27.9 kg/sq m Your Care Team Attending Physician - Demetrius [...] Film) fluticasone nasal (fluticasone Nasal 0.05 mg/inh [employer]) furosemide (furosemide 20 mg Tab) irbesartan (irbesartan [...] Temperature (Oral) 36.3 ???C Heart Rate (Peripheral) 72 Respiratory Rate 20 Blood Pressure 104/88 Height 160.0 cm Height 63 in Weight 69.5 kg Weight 153.221 lb BMI 27.15 What to do next Scheduled Follow-Up Appointments Wednesday 2:30 PM EDT With: Where: [address] [address]- Wednesday 3:20 PM EDT With: Hermes CASON, Demetrius Rosa Where: [address] [address]- Medications What How Much When Instructions Unchanged [...] fluticasone nasal (fluticasone Nasal 0.05 mg/ inh [employer]) See instructions USE 1 SPRAY IN BOTH [...] day Unchanged olanzapine (olanzapine 2.5 mg Tab) See instructions 1 tab(s) Oral twice daily Unchanged omeprazole (omeprazole 40 mg Cap-DR) See [...] you are currently receiving treatment for. Bloating Cancer associated pain Cervical lymphadenopathy Cervical spondylosis Chronic GERD Constipation due to opioid therapy Coronary artery disease 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 Diabetic autonomic neuropathy associated with type 2 diabetes mellitus Diverticulosis FH: stomach cancer Former smoker GERD with apnea Gla (more content not included)... Normal [facility] Medicine Office/Clini c Noteon 10-12-2024 Family Medicine Office/Clinic Note Family Medicine Office/Clinic Note Chief Complaint Concerns about nutritional intake and swallowing difficulties HPI Staff Jeremie is a 83 year old male presenting with 2 week f/u GOLD 09/28/24 order nystatin for oral thrush re evaluate thrush: it is completely gone History of Present Illness - The patient is an 83-year-old male presenting with nutritional status and swallowing difficulties. - Reports indicate the patient initially had difficulty swallowing, leading to inadequate nutritional intake. - The patient's complexion was grayish prior to intervention, but improved after nutritional support via PEG tube. - The patient has shown gradual improvement in swallowing ability, yet challenges persist. - Coughing up phlegm is noted, likely attributed to postnasal drip and possible allergy-related factors. - There is a noted daily improvement in the patient's eating habits. Review of Systems PHQ Score Initial Depression Screen Score: 0 SCORE Physical Exam Vitals & Measurements T: 36.3 ???C(Oral) HR: 72(Peripheral) RR: 20 BP: 104/88 SpO2: 100% HT: 160.0 cm HT: 63 in WT: 69.5 kg WT: 153.221 lb BMI: 27.15 General: alert, no acute distress, improved facial color with some pinkness noted ENMT: oral mucosa moist, tongue nice and pink Cardiovascular: Regular rate and rhythm, normal peripheral perfusion Respiratory: Lungs clear to auscultation, respirations non labored, occasional coughing up phlegm likely due to postnasal drip Extremities: no deformity, no trauma Neurological: oriented x 4, level of consciousness appropriate for age, CN II-XII intact, motor strength equal & normal bilaterally, speech normal Abdomen: Soft, Non-tender, Non-distended, + Bowel sounds Assessment/Plan 1. Dysphagia, unspecified (R13.10) - Regular evaluation of swallowing ability; aim for improvement. - Consider allergies as a contributing factor to coughing; manage. - Maintain PEG tube until oral intake is satisfactory. - Thrush resolved. 2. Overweight (BMI 25.0-29.9) (E66.3: Overweight) - Monitor BMI and nutritional status. - Discuss dietary adjustments when swallowing improves. 3. Former smoker (Z87.891: Personal history of nicotine dependence) - Monitor respiratory status. - Encourage avoidance of smoking. 4. Adult BMI 27.0-27.9 kg/sq m (Z68.27: Body mass index [BMI] 27.0-27.9, adult) - BMI education added. 5. Post-nasal drip (R09.82: Postnasal drip) - OTC meds as needed, - 83-year-old male with history of overweight and former smoking presenting with nutritional status and swallowing difficulties. - Swallowing difficulties and inadequate nutritional intake improved with PEG tube placement. - Coughing up phlegm may be allergy-related. - Gradual improvement in nutritional intake and swallowing noted. I discussed with the patient the importance of maintaining nutritional intake through the PEG tube until swallowing improves sufficiently. We also talked about the possibility of allergies contributing to the coughing up of phlegm, and I indicated that this could be managed by considering environmental factors, such as pollen and dust. I reassured the patient about the gradual improvements in his condition and emphasized the need for continued observation of his swallowing ability and overall nutritional status. Additionally, we addressed the importance of avoiding tobacco exposure given his history as a former smoker. - Continue to receive nutrition through the PEG tube. - Monitor swallowing ability and try to eat more as you feel comfortable. - Stay aware of potential allergy symptoms and manage them. - Avoid smoking and exposure to tobacco smoke. - Report any significant changes or concerns about your health. Follow-up No qualifying data available Problem List/Past Medical History Ongoing Bloating Cancer associated pain Cervical lymphadenopathy Cervical spondylosis Chronic GERD Constipation due to opioid therapy Coronary artery disease 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 Diabetic autonomic neuropathy [...] Diarrhea Fecal urgency Irregular bowel habits Procedure/Surgical (more content not included)... Normal [facility] Comment on above: Result Comment: Elec tronically Signed By: Hermes CASON, Demetrius Rosa\.br\Date and Time Signed: 10/12/24 15:08 EDT Capillary blood glucose juan urement by glucometer (mass/volume)Ordered By: Veena Adkins on 10-03-2024 Glucose [Mass/Vol] 103 mg/dL Normal [facility] Comment on above: Random Glucose Refer ence Range is dependent on time and content of last meal. Glucose of more than 200 mg/dL in a nonstressed, ambulatory subject supports the diagnosis of Diabetes Mellitus. Result Comment: [place] Glucose Reference Range is dependent on time and content of last meal. Glucose of more than 200 mg/dL in a nonstressed, ambulatory subject supports the diagnosis of Diabetes Mellitus. Performed By: #### G LULS #### Point of Care testing , GLUCOSE POCT GLUCOMETERSon 0 10-03-2024 COMMEMT1 Glu2: Cleaned Meter [facility] Glucose [Mass/Vol] 103 mg/dL [facility] Comment on above: Random Glucose Refer ence Range is dependent on time and content of last meal. Glucose of more than 200 mg/dL in a nonstressed, ambulatory subject supports the diagnosis of Diabetes Mellitus. [facility] Glucose Poct Glucometerson 0 10-03-2024 Commemt1 Glu2: Cleaned Meter Normal [facility] Comment on above: Result Comment: PERF ORMED BY: [facility] [address] [place] [address] PATHOLOGIST [employer]NAGER HEBER SHANNON M.D. Performed By: #### G RAMIRO #### Point of Care testing , No Panel InformationOrdered By: Veena Adkins on 10-03-2024 Bedside Glucose Comment Glu2: cleaned meter [facility] Family Medicine Office/Clini c Noteon 09-28-2024 Family Medicine Office/Clinic Note Family Medicine Office/Clinic Note Chief Complaint ER follow up Abdominal pain and difficulty swallowing HPI Staff 2 week follow up to RUQ pain. Liver US ordered @ [facility]. Instructed to get done if pain worsens. Has since then gone to [facility] ER CC: abdominal pain & constipation States [...] day(s), # 140 mL, Refills(s) 0, Pharmacy: [id number], 160, cm, 09/28/24 14:41:00 EDT, Height/Length Dosing, [...] oral thrush. I prescribed Nystatin in a exugj-cwu-wsoucue method to effectively address the thrush symptoms [...] to opioid therapy Coronary artery disease 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 Diabetic autonomic neuropathy associated with type 2 diabetes mellitus Diverticulo (more content not included)... Normal [facility] Comment on above: Result Comment: Elec tronically Signed By: Hermes CASON, Demetrius Rosa\.br\Date and Time Signed: 09/28/24 15:12 EDT Alanine aminotransferase [En zymatic activity/volume] in Serum or PlasmaOrdered By: Maru Hayes on 09-20-2024 ALT [Catalytic activity/Vol] Alanine aminotransferase [Enzymatic activity/volume] in Serum or Plasma [facility] ALT [Catalytic activity/Vol] 9 U/L Normal [facility] Comment on above: Performed By: #### M G, SCAN CBC, CMP #### [facility] [address] [place] [address] Albumin [Mass/volume] in Ser um or Plasma by Bromocresol green (BCG) dye binding methoOrdered By: Maru Hayes on 09-20-2024 Albumin BCG dye [Mass/Vol] Albumin [Mass/volume] in Serum or Plasma by Bromocresol green (BCG) dye binding metho 3.5-5.7 [facility] Albumin BCG dye [Mass/Vol] 3.5 g/dL 3.5-5.7 [facility] Alkaline phosphatase [Enzyma tic activity/volume] in Serum or PlasmaOrdered By: Maru Hayes on 09-20-2024 ALP [Catalytic activity/Vol] Alkaline phosphatase [Enzymatic activity/volume] in Serum or Plasma 34-104 [facility] ALP [Catalytic activity/Vol] 81 U/L Normal 34104 [facility] Comment on above: Performed By: #### M G, SCAN CBC, CMP #### [facility] [address] Appearance of UrineOrdered B y: Maru aHyes on 09-20-2024 Appearance (U) Urine appearance Clear [facility] Appearance (U) Clear Normal Clear [facility] Comment on above: Order Comment: Name Collection Type:: Clean-Voided Midstream Performed By: #### U A #### [address] Aspartate aminotransferase [ Enzymatic activity/volume] in Serum or PlasmaOrdered By: Maru Hayes on 09-20-2024 AST [Catalytic activity/Vol] Aspartate aminotransferase [Enzymatic activity/volume] in Serum or Plasma 1339 [facility] AST [Catalytic activity/Vol] 14 U/L Normal 39 [facility] Comment on above: Performed By: #### M G, SCAN CBC, CMP #### [facility] [address] [place] [id number] [facility] Basic Metabolic Panelon Creatinine Clr Calc Pharmacy 59.79 Normal [facility] Comment on above: Performed By: #### M G, SCAN CBC, CMP #### [facility] [address] [place] [id number] [facility] GFR/1.73 sq M.predicted MDRD (S/P/Bld) [Vol rate/Area] mL/min/{1.73_m2} Normal [facility] Comment on above: Performed By: #### M G, SCAN CBC, CMP #### [facility] [address] Basophils Auto (Bld) [#/Vol] Ordered By: Maru Hayes on 09-20-2024 Basophils (Bld) [#/Vol] Automated basophil count 0.0-0.2 [facility] Basophils [#/volume] in Bloo d by Automated countOrdered By: Maru Hayes on 09-20-2024 Basophils (Bld) [#/Vol] 0.1 10*3/uL Normal 0.0-0.2 [facility] Comment on above: Result Comment: PERF ORMED BY: [facility] [address] [place] [address] PATHOLOGIST [employer]NAGER HEBER SHANNON M.D. Performed By: #### M G, SCAN CBC, CMP #### [facility] [address] Basophils/100 WBC Auto (Bld) Ordered By: Maru Hayes on 09-20-2024 Basophils/100 WBC (Bld) Automated basophil % . [facility] Basophils/100 leukocytes in Blood by Automated countOrdered By: Maru Hayes on 09-20-2024 Basophils/100 WBC (Bld) 1.2 % Normal . [facility] Comment on above: Performed By: #### M G, SCAN CBC, CMP #### [facility] [address] Bilirubin Test strip Ql (U)O rdered By: Maru Hayes on 09-20-2024 Bilirubin Ql (U) Bilirubin.total [Presence] in Urine by Test strip Negative [facility] Bilirubin Ql (U) Negative Negative [facility] Bilirubin.direct [Mass/volum e] in Serum or PlasmaOrdered By: Maru Hayes on 09-20-2024 Bilirubin.direct [Mass/Vol] Bilirubin.direct [Mass/volume] in Serum or Plasma 0.03-0.18 [facility] Bilirubin.direct [Mass/Vol] 0.10 mg/dL 0.03-0.18 [facility] Bilirubin.total [Mass/volume ] in Serum or PlasmaOrdered By: Maru Hayes on 09-20-2024 Bilirubin [Mass/Vol] Bilirubin.total [Mass/volume] in Serum or Plasma 0.3-1.0 [facility] Bilirubin [Mass/Vol] 0.5 mg/dL Normal 0.3-1.0 [facility] Comment on above: Performed By: #### M G, SCAN CBC, CMP #### [facility] [address] abdomen pelvis w conon CT abdomen pelvis w con [facility] [place] [address] [place] [address] CT Scan Report Signed Patient: Jeremie Bennett MR#: [id number] 669 : 1940 Acct:[id number] Age/Sex: 83 / M ADM Date: 09/20/24 Loc: ER Room: Type: [facility] ER Attending Dr: Copies to: Maru Hayes [...] Gordon M.D. 09/20/2024 8:03 PM Dictation Location: [place] [address] Transcribed By: [facility] 09/20/242002 Dictated By: Rafi Gordon II, MD 09/20/241947 Signed By: 09/20/242002 Normal [facility] Calcium [Mass/volume] in Ser um or PlasmaOrdered By: Maru Hayes on 09-20-2024 Calcium [Mass/Vol] Calcium [Mass/volume ] in Serum or Plasma 8.6-10.3 [facility] Calcium [Mass/Vol] 9.5 mg/dL Normal 8.6-10.3 [facility] Comment on above: Performed By: #### M G, SCAN CBC, CMP #### [facility] [address] [place] [address] [place] Carbon dioxide, total [Moles /volume] in Serum or PlasmaOrdered By: Maru Hayes on 09-20-2024 CO2 [Moles/Vol] Carbon dioxide, tota l [Moles/volume] in Serum or Plasma 21.0-31.0 [facility] CO2 [Moles/Vol] 26.8 mmol/L Normal 21.0-31.0 [facility] Comment on above: Performed By: #### M G, SCAN CBC, CMP #### [facility] [address] [place] [id number] [place] Chloride [Moles/volume] in S stephanie or PlasmaOrdered By: Maru Hayes on 09-20-2024 Chloride [Moles/Vol] Chloride [Moles/vol ume] in Serum or Plasma 98-107 [facility] Chloride [Moles/Vol] 104 mmol/L Normal 98-107 [facility] Comment on above: Performed By: #### M G, SCAN CBC, CMP #### [facility] [address] [place] [address] [place] Color Auto (U)Ordered By: Ronald Hayes on 09-20-2024 Color (U) Color of Urine by Auto Yellow [facility] Color of Urine by AutoOrdere d By: Maru Hayes on 09-20-2024 Color (U) Light-yellow Normal Yellow [facility] Comment on above: Order Comment: Name Collection Type:: Clean-Voided Midstream Performed By: #### U A #### [address] Complete Blood Count Auto Di ffon 09-20-2024 Mean Corpuscular HGB Conc 33.3 g/dL Normal 32.5-35.6 [facility] Comment on above: Performed By: #### M G, SCAN CBC, CMP #### [facility] [address] [place] [address] [place] Monocytes/100 WBC (Bld) 22.62 % High 0.00-20.00 [facility] Comment on above: Result Comment: For adults in ED, MDW > 20.0 may be associated with a higher risk of sepsis during the first 12 hrs of hospital admission Performed By: #### M G, SCAN CBC, CMP #### [facility] [address] [place] [address] [place] NRBC% 0.0 /100{WBC} Normal 0-0.5 [facility] Comment on above: Performed By: #### M G, SCAN CBC, CMP #### [facility] [address] [place] [address] [place] Creatinine [Mass/volume] in Serum or PlasmaOrdered By: Maru Hayes on 09-20-2024 Creatinine [Mass/Vol] Creatinine [Mass/v olume] in Serum or Plasma 0.70-1.30 [facility] Creatinine [Mass/Vol] 0.70 mg/dL Normal 0.70-1.30 [facility] Comment on above: Performed By: #### M G, SCAN CBC, CMP #### [facility] [address] ECG 12 lead ECGon 09-20-2024 ECG 12 lead ECG [facility] [place] [address] [place] [address] Electrocardiograph Report Signed Patient: Jeremie Bennett MR#: [id number] 669 : 1940 Acct:[id number] Age/Sex: 83 / M ADM Date: 09/20/24 Loc: ER Room: Type: [facility] ER Attending Dr: Ordering Provider: Maru Hayes [...] Abnormal ECG Confirmed by Maru Hayes MD ([id number]) on 09/20/2024 11:00:16 PM Referred By: Electronically Signed By: Maru Hayes MD Transcribed By: MUS Signed By Maru Hayes MD 12/08 Normal [facility] Eosinophils Auto (Bld) [#/Vo l]Ordered By: Maru Hayes on 09-20-2024 Eosinophils (Bld) [#/Vol] Automated eosinophil count 0.0-0.45 [facility] Eosinophils [#/volume] in Bl ood by Automated countOrdered By: Maru Hayes on 09-20-2024 Eosinophils (Bld) [#/Vol] 0.3 10*3/uL Normal 0.0-0.45 [facility] Comment on above: Performed By: #### M G, SCAN CBC, CMP #### [facility] [address] Eosinophils/100 WBC Auto (Bl d)Ordered By: Maru Hayes on 09-20-2024 Eosinophils/100 WBC (Bld) Automated eosinophil % . [facility] Eosinophils/100 leukocytes i n Blood by Automated countOrdered By: Maru Hayes on 09-20-2024 Eosinophils/100 WBC (Bld) 2.5 % Normal . [facility] Comment on above: Performed By: #### M G, SCAN CBC, CMP #### [facility] [address] Erythrocyte distribution wid th Auto (RBC) [Ratio]Ordered By: Maru Hayes on 09-20-2024 Erythrocyte distribution width (RBC) [Ratio] Erythrocyte distribution width [Ratio] by Automated count High 12.0-14.8 [facility] Erythrocyte distribution wid th [Ratio] by Automated countOrdered By: Maru Hayes on 09-20-2024 Erythrocyte distribution width (RBC) [Ratio] 15.9 % High 12.0-14.8 [facility] Comment on above: Performed By: #### M G, SCAN CBC, CMP #### [facility] [address] Erythrocytes [#/volume] in B lood by Automated countOrdered By: Maru Hayes on 09-20-2024 RBC (Bld) [#/Vol] 3.85 10*6/uL Low 3.90-5.60 [facility] Comment on above: Performed By: #### M G, SCAN CBC, CMP #### [facility] [address] Globulin Calc (S) [Mass/Vol] Ordered By: Maru Hayes on 09-20-2024 Globulin (S) [Mass/Vol] Serum globulin measurement by calculation (mass/volume) [facility] Glucose [Mass/volume] in Ser um or PlasmaOrdered By: Maru Hayes on 09-20-2024 Glucose [Mass/Vol] Glucose [Mass/volume ] in Serum or Plasma High 70-100 [facility] Comment on above: ADA recommended refe rence rangeRandom Glucose Reference Range is dependent on time and content of last meal. Glucose of more than 200 mg/dL in a nonstressed, ambulatory subject supports the diagnosis of Diabetes Mellitus. Glucose [Mass/Vol] 105 mg/dL High 70-100 [facility] Comment on above: ADA recommended refe rence rangeRandom Glucose Reference Range is dependent on time and content of last meal. Glucose of more than 200 mg/dL in a nonstressed, ambulatory subject supports the diagnosis of Diabetes Mellitus. Result Comment: [place] om Glucose Reference Range is dependent on time and content of last meal. Glucose of more than 200 mg/dL in a nonstressed, ambulatory subject supports the diagnosis of Diabetes Mellitus. ADA recommended reference range Performed By: #### M G, SCAN CBC, CMP #### [facility] [address] Glucose [Mass/volume] in Uri ne by Test stripOrdered By: Maru Hayes on 09-20-2024 Glucose Test strip (U) [Mass/Vol] Glucose [Mass/volume] in Urine by Test strip Normal [facility] Glucose Test strip (U) [Mass/Vol] Normal mg/dL Normal [facility] Hematocrit Auto (Bld) [Volum e fraction]Ordered By: Maru Hayes on 09-20-2024 Hematocrit (Bld) [Volume fraction] Hematocrit [Volume Fraction] of Blood by Automated count Low 38.8-50.0 [facility] Hematocrit [Volume Fraction] of Blood by Automated countOrdered By: Maru Hayes on 09-20-2024 Hematocrit (Bld) [Volume fraction] 35.3 % Low 38.8-50.0 [facility] Comment on above: Performed By: #### M G, SCAN CBC, CMP #### [facility] [address] Hemoglobin Test strip Ql (U) Ordered By: Maru Hayes on 09-20-2024 Hemoglobin Ql (U) Hemoglobin [Presence ] in Urine by Test strip Negative [facility] Hemoglobin Ql (U) Negative Negative [facility] Hemoglobin [Mass/volume] in BloodOrdered By: Maru Hayes on 09-20-2024 Hemoglobin (Bld) [Mass/Vol] Hemoglobin [Mass/volume] in Blood Low 13.0-17.0 [facility] Hemoglobin (Bld) [Mass/Vol] 11.8 g/dL Low 13.0-17.0 [facility] Comment on above: Performed By: #### M G, SCAN CBC, CMP #### [facility] [address] Hepatic Panelon 09-20-2024 Albumin [Mass/Vol] 3.5 g/dL Normal 3.5-5.7 [facility] Comment on above: Performed By: #### M G, SCAN CBC, CMP #### [facility] [address] Bilirubin,Indirect 0.4 mg/dL Normal [facility] Comment on above: Performed By: #### M G, SCAN CBC, CMP #### [facility] [address] Bilirubin.indirect [Mass/Vol] 0.10 mg/dL Normal 0.03-0.18 [facility] Comment on above: Performed By: #### M G, SCAN CBC, CMP #### [facility] [address] Ketones Test strip Ql (U)Ord ered By: Maru Hayes on 09-20-2024 Ketones Ql (U) Ketones [Presence] i n Urine by Test strip Negative [facility] Ketones [Presence] in Urine by Test stripOrdered By: Maru Hayes on 09-20-2024 Ketones Ql (U) Negative Normal Negative [facility] Comment on above: Order Comment: Name Collection Type:: Clean-Voided Midstream Performed By: #### U A #### [address] Leukocyte esterase [Presence ] in Urine by Test stripOrdered By: Maru Hayes on 09-20-2024 Leukocyte esterase Test strip Ql (U) Leukocyte esterase [Presence] in Urine by Test strip Negative [facility] Leukocyte esterase Test strip Ql (U) Negative Normal Negative [facility] Comment on above: Order Comment: Name Collection Type:: Clean-Voided Midstream Performed By: #### U A #### [address] Leukocytes [#/volume] correc suzy for nucleated erythrocytes in Blood by Automated counOrdered By: Maru Hayes on 09-20-2024 WBC corrected for nucl RBC Auto (Bld) [#/Vol] Leukocytes [#/volume] corrected for nucleated erythrocytes in Blood by Automated coun High 4.1-10.5 [facility] WBC corrected for nucl RBC Auto (Bld) [#/Vol] 11.2 10*3/uL High 4.1-10.5 [facility] Leukocytes [#/volume] in Blo od by Automated countOrdered By: Maru Hayes on 09-20-2024 WBC (Bld) [#/Vol] 11.2 10*3/uL High 4.1-10.5 [facility] Comment on above: Performed By: #### M G, SCAN CBC, CMP #### [address] Lipase [Enzymatic activity/v olume] in Serum or PlasmaOrdered By: Maru Hayes on 09-20-2024 Lipase [Catalytic activity/Vol] Lipase [Enzymatic activity/volume] in Serum or Plasma 11.0-82.0 [facility] Lipase [Catalytic activity/Vol] 34.0 U/L Normal 11.0-82.0 [facility] Comment on above: Result Comment: PERF ORMED BY: [place] [address] PATHOLOGIST [employer] HEBER SHANNON M.D. Performed By: #### M G, SCAN CBC, CMP #### [facility] [address] [place] [address] [place] Lymphocytes Auto (Bld) [#/Vo l]Ordered By: Maru Hayes on 09-20-2024 Lymphocytes (Bld) [#/Vol] Lymphocytes [#/volume] in Blood by Automated count 1.00-4.8 [facility] Lymphocytes [#/volume] in Bl ood by Automated countOrdered By: Maru Hayes on 09-20-2024 Lymphocytes (Bld) [#/Vol] 2.8 10*3/uL Normal 1.00-4.8 [facility] Comment on above: Performed By: #### M G, SCAN CBC, CMP #### [facility] [address] Lymphocytes/100 WBC Auto (Bl d)Ordered By: Maru Hayes on 09-20-2024 Lymphocytes/100 WBC (Bld) Lymphocytes/100 leukocytes in Blood by Automated count . [facility] Lymphocytes/100 leukocytes i n Blood by Automated countOrdered By: Maru Hayes on 09-20-2024 Lymphocytes/100 WBC (Bld) 24.8 % Normal . [facility] Comment on above: Performed By: #### M G, SCAN CBC, CMP #### [facility] [address] MCH Auto (RBC) [Entitic mass ]Ordered By: Maru Hayes on 09-20-2024 MCH (RBC) [Entitic mass] MCH [Entitic mass] by Automated count 27.5-35.2 [facility] MCH [Entitic mass] by Automa suzy countOrdered By: aMru Hayes on 09-20-2024 MCH (RBC) [Entitic mass] 30.5 pg Normal 27.5-35.2 [facility] Comment on above: Performed By: #### M G, SCAN CBC, CMP #### [facility] [address] [place] [address] MCHC Auto (RBC) [Mass/Vol]Or dered By: Maru Hayes on 09-20-2024 MCHC (RBC) [Mass/Vol] MCHC [Mass/volume] by Automated count 32.5-35.6 [facility] MCHC (RBC) [Mass/Vol] 33.3 g/dL 32.5-35.6 [facility] MCV Auto (RBC) [Entitic vol] Ordered By: Maru Hayes on 09-20-2024 MCV (RBC) [Entitic vol] MCV [Entitic volume] by Automated count 83.5-101 [facility] MCV [Entitic volume] by Auto mated countOrdered By: Maru Hayes on 09-20-2024 MCV (RBC) [Entitic vol] 91.7 fL Normal 83.5-101 [facility] Comment on above: Performed By: #### M G, SCAN CBC, CMP #### [facility] [address] [place] [address] [place] Monocyte distribution width [Entitic volume] in Blood by AutomatedOrdered By: Maru Hayes on 09-20-2024 Monocyte distribution width Auto (Bld) [Entitic vol] Monocyte distribution width [Entitic volume] in Blood by Automated High 0.00-20.00 [facility] Comment on above: For adults in ED, MD W > 20.0 may be associated with a higher risk of sepsis during the first 12 hrs of hospital admission Monocyte distribution width Auto (Bld) [Entitic vol] 22.62 % High 0.00-20.00 [facility] Comment on above: For adults in ED, MD W > 20.0 may be associated with a higher risk of sepsis during the first 12 hrs of hospital admission Monocytes Auto (Bld) [#/Vol] Ordered By: Maru Hayes on 09-20-2024 Monocytes (Bld) [#/Vol] Automated blood monocyte count 0.0-0.8 [facility] Monocytes [#/volume] in Bloo d by Automated countOrdered By: Maru Hayes on 09-20-2024 Monocytes (Bld) [#/Vol] 0.8 10*3/uL Normal 0.0-0.8 [facility] Comment on above: Performed By: #### M G, SCAN CBC, CMP #### [facility] [address] [place] [address] [place] Monocytes/100 WBC Auto (Bld) Ordered By: Maru Hayes on 09-20-2024 Monocytes/100 WBC (Bld) Automated monocyte % . [facility] Monocytes/100 leukocytes in Blood by Automated countOrdered By: Maru Hayes on 09-20-2024 Monocytes/100 WBC (Bld) 7.2 % Normal . [facility] Comment on above: Performed By: #### M G, SCAN CBC, CMP #### [facility] [address] [place] [address] [place] Neutrophils Auto (Bld) [#/Vo l]Ordered By: Maru Hayes on 09-20-2024 Neutrophils (Bld) [#/Vol] Neutrophils [#/volume] in Blood by Automated count 1.8-7.7 [facility] Neutrophils [#/volume] in Bl ood by Automated countOrdered By: Maru Hayes on 09-20-2024 Neutrophils (Bld) [#/Vol] 7.2 10*3/uL Normal 1.8-7.7 [facility] Comment on above: Performed By: #### M G, SCAN CBC, CMP #### [facility] [address] [place] [address] [place] Neutrophils/100 WBC Auto (Bl d)Ordered By: Maru Hayes on 09-20-2024 Neutrophils/100 WBC (Bld) Automated neutrophil % . [facility] Neutrophils/100 leukocytes i n Blood by Automated countOrdered By: Maru Hayes on 09-20-2024 Neutrophils/100 WBC (Bld) 64.3 % Normal . [facility] Comment on above: Performed By: #### M G, SCAN CBC, CMP #### [facility] [address] Nitrite Test strip Ql (U)Ord ered By: Maru Hayes on 09-20-2024 Nitrite Ql (U) Nitrite [Presence] i n Urine by Test strip Negative [facility] Nitrite Ql (U) Negative Negative [facility] No Panel InformationOrdered By: Maru Hayes on 09-20-2024 Estimated GFR (CKD-EPI) > 60.0 mL/Min [facility] Creatinine Clearance (Chem 59.79 [facility] Nucleated erythrocytes [Pres ence] in Blood by Automated countOrdered By: Maru Hayes on 09-20-2024 Nucleated RBC Auto Ql (Bld) Nucleated erythrocytes [Presence] in Blood by Automated count 0-0.5 [facility] Nucleated RBC Auto Ql (Bld) 0.0 /100{WBC} 0-0.5 [facility] Platelet mean volume Auto (B ld) [Entitic vol]Ordered By: Maru Hayes on 09-20-2024 Platelet mean volume (Bld) [Entitic vol] Platelet mean volume [Entitic volume] in Blood by Automated count 6.6-10.1 [facility] Platelet mean volume [Entiti c volume] in Blood by Automated countOrdered By: Maru Hayes on 09-20-2024 Platelet mean volume (Bld) [Entitic vol] 8.3 fL Normal 6.6-10.1 [facility] Comment on above: Performed By: #### M G, SCAN CBC, CMP #### [facility] [address] Platelets Auto (Bld) [#/Vol] Ordered By: Maru Hayes on 09-20-2024 Platelets (Bld) [#/Vol] Platelets [#/volume] in Blood by Automated count 150-450 [facility] Platelets [#/volume] in Bloo d by Automated countOrdered By: Maru Hayes on 09-20-2024 Platelets (Bld) [#/Vol] 226 10*3/uL Normal 150-450 [facility] Comment on above: Performed By: #### M G, SCAN CBC, CMP #### [facility] [address] 09-21-19 [facility] Case Information Case Priority: None Programs: -- Referral Source: Netbackup Admin Referral Reason: Care coordination Case Type: Transition Care Management Risk Score: -- Case Status: Enrolled (August 22, 2024) Date Assigned: August 22, 2024 Assigned By: Galileo Tucker Date Enrolled: August 22, 2024 Assigned Primary Personnel: Galileo Tucker Assigned Secondary Personnel: -- Case Physician: Demetrius Cooper MD Ongoing Bloating BMI 25.0-25.9,adult Cancer associated pain Cervical lymphadenopathy Cervical spondylosis Chronic GERD Constipation due to opioid therapy Coronary artery disease 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 Diabetic autonomic neuropathy [...] patch(es), Topical, q72hr fluticasone Nasal 0.05 mg/inh [employer], See Instructions furosemide 20 mg Tab, 20 [...] a US of the liver at OV 5, but he has not heard from [facility], a message sent to clinical for f/u. Patient denies any further questions or concerns. Communication Events Date: September 20, 2024 Method: Phone call Type: Outbound Duration (min): 3 Outcome: Case discussion Contact Type: Patient Contact Name: B (more content not included)... Normal [facility] Potassium [Moles/volume] in Serum or PlasmaOrdered By: Maru Hayes on 09-20-2024 Potassium [Moles/Vol] Potassium [Moles/v olume] in Serum or Plasma 3.5-5.1 [facility] Potassium [Moles/Vol] 4.0 mmol/L Normal 3.5-5.1 [facility] Comment on above: Performed By: #### M G, SCAN CBC, CMP #### [facility] [address] [place] [address] Protein Test strip (U) [Mass /Vol]Ordered By: Maru Hayes on 09-20-2024 Protein (U) [Mass/Vol] Protein [Mass/vol ume] in Urine by Test strip Negative [facility] Protein (U) [Mass/Vol] Negative Negative [facility] Protein [Mass/volume] in Ser um or PlasmaOrdered By: Maru Hayes on 09-20-2024 Protein [Mass/Vol] Protein [Mass/volume ] in Serum or Plasma 6.4-8.9 [facility] Protein [Mass/Vol] 6.4 g/dL Normal 6.4-8.9 [facility] Comment on above: Performed By: #### M G, SCAN CBC, CMP #### [facility] [address] [place] [address] RBC Auto (Bld) [#/Vol]Ordere d By: Maru Hayes on 09-20-2024 RBC (Bld) [#/Vol] Erythrocytes [#/volu me] in Blood by Automated count Low 3.90-5.60 [facility] Serum globulin measurement b y calculation (mass/volume)Ordered By: Maru Hayes on 09-20-2024 Globulin (S) [Mass/Vol] 2.9 g/dL Normal [facility] Comment on above: Performed By: #### M G, SCAN CBC, CMP #### [facility] [address] [place] [address] Serum or plasma albumin/glob ulin mass ratioOrdered By: Maru Hayes on 09-20-2024 Albumin/Globulin [Mass ratio] Serum or plasma albumin/globulin mass ratio [facility] Albumin/Globulin [Mass ratio] 1.2 {ratio} Normal [facility] Comment on above: Performed By: #### M G, SCAN CBC, CMP #### [facility] [address] [place] [address] Serum or plasma anion gap de terminationOrdered By: Maru Hayes on 09-20-2024 Anion gap [Moles/Vol] Serum or plasma an ion gap determination 6.0-15.0 [facility] Anion gap [Moles/Vol] 10.2 mmol/L Normal 6.0-15.0 [facility] Comment on above: Performed By: #### M G, SCAN CBC, CMP #### [facility] [address] Serum or plasma non-glucuron idated bilirubin measurement (mass/volume)Ordered By: Maru Hayes on 09-20-2024 Bilirubin.indirect [Mass/Vol] Serum or plasma non-glucuronidated bilirubin measurement (mass/volume) [facility] Bilirubin.indirect [Mass/Vol] 0.4 mg/dL [facility] Sodium [Moles/volume] in Ser um or PlasmaOrdered By: Maru Hayes on 09-20-2024 Sodium [Moles/Vol] Sodium [Moles/volume ] in Serum or Plasma 136-145 [facility] Sodium [Moles/Vol] 137 mmol/L Normal 136-145 [facility] Comment on above: Performed By: #### M G, SCAN CBC, CMP #### [facility] [address] Specific gravity Test strip (U) [Rel density]Ordered By: Maru Hayes on 09-20-2024 Specific gravity (U) [Rel density] Specific gravity of Urine by Test strip High 1.001-1.03 0 [facility] Specific gravity (U) [Rel density] 1.039 High 1.001-1.03 0 [facility] Troponin I High Sensitivityo n 09-20-2024 Troponin I High Sensitivity 7 Normal 0-20 [facility] Comment on above: Result Comment: The Troponin units of report have been changed to meet the Chest Pain Accreditation requirement, element EC5.M1l2. Troponin units are changed from pg/ml to ng/L. Also, the decimal is removed and results are in whole numbers. PERFORMED BY: [facility] [address] [place] [address] PATHOLOGIST RETAIL ARE[employer] MANAGER HEBER SHANNON M.D. Performed By: #### H S TROP #### [facility] [address] [place] [address] [place] Troponin I.cardiac [Mass/vol ume] in Serum or Plasma by Detection limit <= 0.01 ng/Ordered By: Maru Hayes on 09-20-2024 Troponin I.cardiac DL <= 0.01 ng/mL [Mass/Vol] Troponin I.cardiac [Mass/volume] in Serum or Plasma by Detection limit <= 0.01 ng/ 0 [facility] Comment on above: The Troponin units o f report have been changed to meet the Chest Pain Accreditation requirement, element EC5.M1l2. Troponin units are changed from pg/ml to ng/L. Also, the decimal is removed and results are in whole numbers. Troponin I.cardiac [Mass/vol ume] in Serum or Plasma by Detection limit <= 0.01 ng/mLOrdered By: Maru Hayes on 09-20-2024 Troponin I.cardiac DL <= 0.01 ng/mL [Mass/Vol] 7 ng/L [facility] Comment on above: The Troponin units o f report have been changed to meet the Chest Pain Accreditation requirement, element EC5.M1l2. Troponin units are changed from pg/ml to ng/L. Also, the decimal is removed and results are in whole numbers. Urea nitrogen [Mass/volume] in Serum or PlasmaOrdered By: Maru Hayes on 09-20-2024 Urea nitrogen [Mass/Vol] Urea nitrogen [Mass/volume] in Serum or Plasma 12-08 [facility] Urea nitrogen [Mass/Vol] 20 mg/dL Normal 12-08 [facility] Comment on above: Performed By: #### M G, SCAN CBC, CMP #### [facility] [address] [place] [address] [place] Urinalysison 09-20-2024 Bilirubin,Urine Negative Normal Negative [facility] Comment on above: Order Comment: Name Collection Type:: Clean-Voided Midstream Performed By: #### U A #### [facility] [address] Glucose Ql (U) Normal Normal Normal [facility] Comment on above: Order Comment: Name Collection Type:: Clean-Voided Midstream Performed By: #### U A #### [place] [address] [place] Nitrite,Urine Negative Normal Negative [facility] Comment on above: Order Comment: Name Collection Type:: Clean-Voided Midstream Performed By: #### U A #### [address] Occult Blood,Urine Negative Normal Negative The [facility] Comment on above: Order Comment: Name Collection Type:: Clean-Voided Midstream Result Comment: PERF ORMED BY: [place] [address] PATHOLOGIST RETAIL ARE[employer] MANAGER HEBER SHANNON M.D. Performed By: #### U A #### [address] Protein,Urine Negative Normal Negative [facility] Comment on above: Order Comment: Name Collection Type:: Clean-Voided Midstream Performed By: #### U A #### [address] Specificy [place],Urine 1.039 High 1.001-1.03 0 [facility] Comment on above: Order Comment: Name Collection Type:: Clean-Voided Midstream Performed By: #### U A #### [address] Urobilinogen,Urine Normal Normal Normal [facility] Comment on above: Order Comment: Name Collection Type:: Clean-Voided Midstream Performed By: #### U A #### [place] [address] [place] Urobilinogen Test strip (U) [Mass/Vol]Ordered By: Maru Hayes on 09-20-2024 Urobilinogen (U) [Mass/Vol] Urobilinogen [Mass/volume] in Urine by Test strip Normal [facility] Urobilinogen (U) [Mass/Vol] Normal mg/dL Normal [facility] WBC Auto (Bld) [#/Vol]Ordere d By: Maru Hayes on 09-20-2024 WBC (Bld) [#/Vol] Leukocytes [#/volume ] in Blood by Automated count High 4.1-10.5 [facility] pH Test strip (U)Ordered By: Maru Hayes on 09-20-2024 pH (U) pH of Urine by Test strip 5.0-9.0 [facility] pH of Urine by Test stripOrd ered By: Maru Hayes on 09-20-2024 pH (U) 5.0 [pH] Normal 5.0-9.0 [facility] Comment on above: Order Comment: Name Collection Type:: Clean-Voided Midstream Performed By: #### U A #### [address] Ambulatory Visit Summaryon 0 09-14-2024 Ambulatory Visit Summary Ambulatory Visit Summary JEREMIE BENNETT Annabelle :1940 Visit Date:09/14/2024 Ambulatory Visit Instructions Your Diagnosis RUQ pain Former smoker Overweight (BMI 25.0-29.9) BMI 25.0-25.9,adult 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 Primary Care Physician - Demetrius Cooper MD. This Is Your Medications List APAP/butalbital/caffeine (Esgic 325 mg-50 mg-40 mg oral capsule) albuterol (Albuterol (Eqv-ProAir HFA) 90 mcg/inh inhalation aerosol) amlodipine (amLODIPine 5 mg Tab) aspirin (Aspir 81) clopidogrel (Plavix 75 mg Tab) dorzolamide ophthalmic (dorzolamide ophthalmic 2% solution) famotidine (Pepcid 20 mg Tab) fentanyl (fentaNYL 12 mcg/hr Transderm ER Film) fluticasone nasal (fluticasone Nasal 0.05 mg/inh [employer]) furosemide (furosemide 20 mg Tab) irbesartan (irbesartan [...] PM EDT With: Demetrius Cooper MD Where: [address] [id number]- Wednesday 2:30 PM EDT With: Where: [address] [address]- Wednesday 3:20 PM EDT With: Demetrius Cooper MD Where: [address] [id number]- Medications What How Much When Instructions Unchanged [...] fluticasone nasal (fluticasone Nasal 0.05 mg/ inh [employer]) See instructions USE 1 SPRAY IN BOTH [...] pain Cervic (more content not included)... Normal [facility] Medicine Office/Clini c Noteon 09-14-2024 Family Medicine [...] to opioid therapy Coronary artery disease 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 Diabetic autonomic neuropathy [...] Cholecystectomy, Co (more content not included)... Normal [facility] Comment on above: Result Comment: Elec tronically Signed By: Hermes CASON, Demetrius Rosa\.br\Date and Time Signed: 09/14/24 07:51 EDT [facility] 09-08-19 [facility] Case Information Case Priority: None Programs: -- Referral Source: Netbackup Admin Referral Reason: Care coordination Case Type: Transition [...] to opioid therapy Coronary artery disease 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 Diabetic autonomic neuropathy [...] patch(es), Topical, q72hr fluticasone Nasal 0.05 mg/inh [employer], See Instructions furosemide 20 mg Tab, 20 [...] mg= 1 tab(s), Oral, Daily Potassium Chloride (Oxj-Xxmz-Czb M20) 20 mEq oral tablet, extended release [...] magic peggy (more content not included)... Normal [facility] C Urineon 09-01-2024 Bacteria identified Cx Nom (U) Microbiology PROCEDURE: Urine Culture [R1] SOURCE: U Random BODY SITE: COLLECTED DATE/TIME: 08/30/2024 10:11 EDT RECEIVED DATE/TIME: 08/30/2024 18:09 EDT START DATE/TIME: 08/30/2024 18:09 EDT FREE TEXT SOURCE: Yajaira Dunn Jodi L FINAL REPORTS Final Report [] Verified Date/Time: 09/01/2024 10:22 EDT 200 cfu/ml Mixed skin contaminants Performing Locations R1: This test was performed at: [facility], [address] [place] [address], [id number]- , , [facility] Comment on above: Performed By: #### 2 [id number] #### [facility] [address] [place] [id number] Ambulatory Visit Summaryon 0 08-30-2024 Ambulatory Visit Summary Ambulatory Visit Summary JEREMIE BENNETT :1940 Visit Date:08/30/2024 Ambulatory Visit Instructions Your Diagnosis Abdominal pain Urinary hesitancy Your Care Team Attending Physician - Mya LASSITER, Yajaira Escalante Primary Care Physician - Hermes CASON, Demetrius Rosa This Is Your Medications List APAP/butalbital/caffeine (Esgic [...] Film) fluticasone nasal (fluticasone Nasal 0.05 mg/inh [employer]) furosemide (furosemide 20 mg Tab) irbesartan (irbesartan [...] mL oral solution) potassium chloride (Potassium Chloride (Yct-Pbsi-Uly M20) 20 mEq oral tablet, extended release) [...] Appointments Wednesday 2:30 PM EDT With: Where: [address] [address]- Wednesday 3:20 PM EDT With: Hermes CASON, Demetrius Rosa Where: [address] [address]- Medications What How Much When Instructions Unchanged [...] fluticasone nasal (fluticasone Nasal 0.05 mg/ inh [employer]) See instructions USE 1 SPRAY IN BOTH [...] ondansetron (onda (more content not included)... Normal [facility] Family Medicine Office/Clini c Noteon 08-30-2024 Family Medicine [...] Urnls Dip Stick Auto w/o Microscopy POC 11663 2. Urinary hesitancy (R39.11: Hesitancy of micturition) [...] to opioid therapy Coronary artery disease 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 Diabetic autonomic neuropathy [...] patch(es), Topical, q72hr fluticasone Nasal 0.05 mg/inh [employer], See Instructions furosemide 20 mg Tab, 20 [...] Chloride (Eq (more content not included)... Normal [facility] Comment on above: Result Comment: Elec tronically Signed By: Yajaira Dunn\.br\Date and Time Signed: 08/30/24 10:45 EDT Family Medicine Office/Clini c Noteon 08-24-2024 Family Medicine Office/Clinic Note Family Medicine Office/Clinic Note Chief Complaint TCM follow up The patient presents with concerns related to chemotherapy and radiation treatment for oropharyngeal carcinoma. HPI Staff Pt presents today for TCM follow up Hospital: [facility] Visit date: 08/19/24 Symptoms the patient presented [...] Hg (Most Recent) 3074F TCM Trans care mgmt 7 day disch 62120 2. Aspiration pneumonia (J69.0: Pneumonitis due to inhalation of food and vomit) Patient improved after antibiotic treatment for aspiration pneumonia. Monitor respiratory status and nutritional challenges affecting swallowing. Ordered: Cardiac Rehab - Ambulatory Referral TCM Trans care mgmt 7 day disch [id number] 3. 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 Plan imaging for therapy assessment within three months. Focus on resolving sore throat impacting nutrition. Ordered: Cardiac Rehab - Ambulatory Referral TCM Trans care mgmt 7 day disch 30621 4. 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 Schedule appropriate follow-up tests to monitor oncologic treatment outcomes. Ordered: Cardiac Rehab - Ambulatory Referral TCM Trans care mgmt 7 day disch 43373 5. Immunosuppression (D84.9: Immunodeficiency, unspecified) Continue to see oncology Ordered: Cardiac Rehab - Ambulatory Referral TCM Trans care mgmt 7 day disch 14920 6. 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 Evaluate non-opioid pain relief methods if feasible. Ordered: TCM Trans care mgmt 7 day disch 83979 7. Nausea (R11.0: Nausea) NO issues at this time. Ordered: TCM Trans care mgmt 7 day disch 75542 8. BMI 27.0-27.9,adult (Z68.27: Body mass index [BMI] 27.0-27.9, adult) BMI education adde (more content not included)... Normal [facility] Comment on above: Result Comment: Elec tronically Signed By: Demetrius Cooper MD\.br\Date and Time Signed: 08/24/24 09:00 EDT Pre-Visit Planningon 025 Pre-Visit Planning Pre-Visit Planning From: Bobbi Hall To: Demetrius Cooper MD; Sent: 08/23/2024 16:27:25 EDT Subject: Pre-Visit Planning Due Date/Time: 08/23/2024 16:27:00 EDT Caller Name: JEREMIE BENNETT; Caller Number: H , M Hi Dr. Cooper. During a pre-visit planning chart [...] feel free to contact me at extension [phone]. Thank you! Bobbi Hall LPN Clinical Field Auditor [place] [phone] Extension: [phone] [email or web address] From: Demetrius Cooper MD To: Bobbi Hall; Sent: 08/24/2024 11:34:18 EDT Subject: RE: Pre-Visit Planning Caller Name: JEREMIE BENNETT; Caller Number: Jane , M Please add Normal [facility] 08-23-19 [facility] Case Information Case Priority: None Programs: -- Referral Source: Netbackup Admin Referral Reason: Care coordination Case Type: Transition Care Management Risk Score: -- Case Status: Enrolled (August 22, 2024) Date Assigned: August 22, 2024 Assigned By: Galileo Tucker Date Enrolled: August 22, 2024 Assigned Primary Personnel: Galileo Tucker Assigned Secondary Personnel: -- Case Physician: Demetrius Cooper MD Ongoing Bloating BMI 29.0-29.9,adult Cervical lymphadenopathy Cervical spondylosis Chronic GERD Coronary artery disease 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 Diabetic autonomic neuropathy [...] patch(es), Topical, q72hr fluticasone Nasal 0.05 mg/inh [employer], See Instructions furosemide 20 mg Tab, 20 mg= 1 tab(s), Oral, Daily Hc/Dph/Nystat/[place] Monaslve irbesartan 300 mg Tab, 300 mg= 1 [...] Care Plan Progress Note Admit Date: 08/20/24 [facility] Date of Discharge: 08/21/24 Follow-up appointment scheduled? yes, [facility]. Cooper [facility] f/u 08/24/24 at 0745 Did you understand [...] swallow Ar (more content not included)... Normal [facility] Alanine aminotransferase [En zymatic activity/volume] in Serum or PlasmaOrdered By: Jaiden Nance on 08-21-2024 ALT [Catalytic activity/Vol] Alanine aminotransferase [Enzymatic activity/volume] in Serum or Plasma 752 [facility] Albumin [Mass/volume] in Ser um or Plasma by Bromocresol green (BCG) dye binding methoOrdered By: Jaiden Nance on 08-21-2024 Albumin BCG dye [Mass/Vol] Albumin [Mass/volume] in Serum or Plasma by Bromocresol green (BCG) dye binding metho Low 3.5-5.7 [facility] Alkaline phosphatase [Enzyma tic activity/volume] in Serum or PlasmaOrdered By: Jaiden Nance on 08-21-2024 ALP [Catalytic activity/Vol] Alkaline phosphatase [Enzymatic activity/volume] in Serum or Plasma 34-104 [facility] Aspartate aminotransferase [ Enzymatic activity/volume] in Serum or PlasmaOrdered By: Jaiden Nance on 08-21-2024 AST [Catalytic activity/Vol] Aspartate aminotransferase [Enzymatic activity/volume] in Serum or Plasma 13-39 [facility] Basophils Auto (Bld) [#/Vol] Ordered By: Jaiden Nance on 08-21-2024 Basophils (Bld) [#/Vol] Automated basophil count 0.0-0.2 [facility] Basophils/100 WBC Auto (Bld) Ordered By: Jaiden Nance on 08-21-2024 Basophils/100 WBC (Bld) Automated basophil % . [facility] Bilirubin.total [Mass/volume ] in Serum or PlasmaOrdered By: Jaiden Nance on 08-21-2024 Bilirubin [Mass/Vol] Bilirubin.total [Mass/volume] in Serum or Plasma 0.3-1.[address] [facility] [address] chest wo conon 08-21-2024 CT chest wo con [facility] [place] [address] [place] [address] CT Scan Report Signed Patient: Jeremie Bennett MR#: [id number] : 1940 Acct:[id number] Age/Sex: 83 / M ADM Date: 08/20/24 Loc: Room: [address] [place] [address] Type: ADM IN Attending Dr: Jaiden Nance [...] Christian Melton M.D.08/21/2024 5:58 AM Dictation Location: [place] [address] Transcribed By: [facility] 08/21/24 0558 Dictated By: Christian Melton DO 08/21/24 0555 Signed By: 08/21/2458 Normal [facility] Calcium [Mass/volume] in Ser um or PlasmaOrdered By: Jaiden Nance on 08-21-2024 Calcium [Mass/Vol] Calcium [Mass/volume ] in Serum or Plasma Low 8.6-10.3 [facility] Carbon dioxide, total [Moles /volume] in Serum or PlasmaOrdered By: aJiden Nance on 08-21-2024 CO2 [Moles/Vol] Carbon dioxide, tota l [Moles/volume] in Serum or Plasma 21.0-31.0 [facility] Chloride [Moles/volume] in S stephanie or PlasmaOrdered By: Jaiden Nance on 08-21-2024 Chloride [Moles/Vol] Chloride [Moles/vol ume] in Serum or Plasma High 98-107 [facility] Complete Blood Count Auto Di ffon 08-21-2024 Basophils (Bld) [#/Vol] 0.0 10*3/uL Normal 0.0-0.2 [facility] Comment on above: Result Comment: PERF ORMED BY: [place] [address] PATHOLOGIST [employer] HEBER SHANNON M.D. Performed By: #### U A #### [facility] [address] Basophils/100 WBC (Bld) 0.6 % Normal . [facility] Comment on above: Performed By: #### U A #### [facility] [address] Eosinophils (Bld) [#/Vol] 0.1 10*3/uL Normal 0.0-0.45 [facility] Comment on above: Performed By: #### U A #### [address] Eosinophils/100 WBC (Bld) 1.0 % Normal . [facility] Comment on above: Performed By: #### U A #### [address] Erythrocyte distribution width (RBC) [Ratio] 14.8 % Normal 12.0-14.8 [facility] Comment on above: Performed By: #### U A #### [address] Hematocrit (Bld) [Volume fraction] 30.5 % Low 38.8-50.0 [facility] Comment on above: Performed By: #### U A #### [address] Hemoglobin (Bld) [Mass/Vol] 10.4 g/dL Low 13.0-17.0 [facility] Comment on above: Performed By: #### U A #### [address] Lymphocytes (Bld) [#/Vol] 0.6 10*3/uL Low 1.00-4.8 [facility] Comment on above: Performed By: #### U A #### [address] Lymphocytes/100 WBC (Bld) 9.0 % Normal . [facility] Comment on above: Performed By: #### U A #### [address] MCH (RBC) [Entitic mass] 31.3 pg Normal 27.5-35.2 [facility] Comment on above: Performed By: #### U A #### [address] MCV (RBC) [Entitic vol] 91.6 fL Normal 83.5-101 [facility] Comment on above: Performed By: #### U A #### [address] [place] [address] [place] Mean Corpuscular HGB Conc 34.2 g/dL Normal 32.5-35.6 [facility] Comment on above: Performed By: #### U A #### [address] Monocytes (Bld) [#/Vol] 0.8 10*3/uL Normal 0.0-0.8 [facility] Comment on above: Performed By: #### U A #### [address] Monocytes/100 WBC (Bld) 13.6 % Normal . [facility] Comment on above: Performed By: #### U A #### [address] Neutrophils (Bld) [#/Vol] 4.7 10*3/uL Normal 1.8-7.7 [facility] Comment on above: Performed By: #### U A #### [address] Neutrophils/100 WBC (Bld) 75.8 % Normal . [facility] Comment on above: Performed By: #### U A #### [address] NRBC% 0.1 /100{WBC} Normal 0-0.5 [facility] Comment on above: Performed By: #### U A #### [address] Platelet mean volume (Bld) [Entitic vol] 8.2 fL Normal 6.6-10.1 [facility] Comment on above: Performed By: #### U A #### [place] [address] [place] Platelets (Bld) [#/Vol] 190 10*3/uL Normal 150-450 [facility] Comment on above: Performed By: #### U A #### [address] RBC (Bld) [#/Vol] 3.33 10*6/uL Low 3.90-5.60 [facility] Comment on above: Performed By: #### U A #### [address] WBC (Bld) [#/Vol] 6.2 10*3/uL Normal 4.1-10.5 The [facility] Comment on above: Performed By: #### U A #### [address] Comprehensive Metabolic Pane obdulio 08-21-2024 Albumin [Mass/Vol] 2.9 g/dL Low 3.5-5.7 The [facility] Comment on above: Performed By: #### U A #### [address] Albumin/Globulin [Mass ratio] 1.2 {ratio} Normal [facility] Comment on above: Performed By: #### U A #### [address] ALP [Catalytic activity/Vol] 52 U/L Normal 34-104 [facility] Comment on above: Performed By: #### U A #### [address] ALT [Catalytic activity/Vol] 14 U/L Normal 7-52 [facility] Comment on above: Performed By: #### U A #### [address] Anion gap [Moles/Vol] 9.1 mmol/L Normal 6.0-15.0 [facility] Comment on above: Performed By: #### U A #### [address] AST [Catalytic activity/Vol] 15 U/L Normal 13-39 [facility] Comment on above: Performed By: #### U A #### [address] Bilirubin [Mass/Vol] 0.6 mg/dL Normal 0.3-1.0 [facility] Comment on above: Performed By: #### U A #### [address] Calcium [Mass/Vol] 8.2 mg/dL Low 8.6-10.3 The [facility] Comment on above: Performed By: #### U A #### [address] Chloride [Moles/Vol] 108 mmol/L High 98-107 [facility] Comment on above: Performed By: #### U A #### [address] CO2 [Moles/Vol] 24.2 mmol/L Normal 21.0-31.0 [facility] Comment on above: Performed By: #### U A #### [address] Creatinine [Mass/Vol] 0.75 mg/dL Normal 0.70-1.30 [facility] Comment on above: Performed By: #### U A #### [address] Creatinine Clr Calc Pharmacy 59.79 Normal [facility] Comment on above: Performed By: #### U A #### [address] GFR/1.73 sq M.predicted MDRD (S/P/Bld) [Vol rate/Area] mL/min/{1.73_m2} Normal [facility] Comment on above: Performed By: #### U A #### [address] Globulin (S) [Mass/Vol] 2.4 g/dL Normal [facility] Comment on above: Performed By: #### U A #### [address] Glucose [Mass/Vol] 94 mg/dL Normal 70-100 The [facility] Comment on above: Result Comment: [place] Glucose Reference Range is dependent on time and content of last meal. Glucose of more than 200 mg/dL in a nonstressed, ambulatory subject supports the diagnosis of Diabetes Mellitus. ADA recommended reference range Performed By: #### U A #### [facility] [address] [place] [address] [place] Potassium [Moles/Vol] 3.3 mmol/L Low 3.5-5.1 [facility] Comment on above: Performed By: #### U A #### [facility] [address] [place] [address] [place] Protein [Mass/Vol] 5.3 g/dL Low 6.4-8.9 The [facility] Comment on above: Performed By: #### U A #### [facility] [address] Sodium [Moles/Vol] 138 mmol/L Normal 136-145 The [facility] Comment on above: Performed By: #### U A #### [facility] [address] Urea nitrogen [Mass/Vol] 10 mg/dL Normal 7-25 [facility] Comment on above: Performed By: #### U A #### [facility] [address] [place] [address] [place] Creatinine [Mass/volume] in Serum or PlasmaOrdered By: Jaiden Nance on 08-21-2024 Creatinine [Mass/Vol] Creatinine [Mass/v olume] in Serum or Plasma 0.70-1.30 [facility] Eosinophils Auto (Bld) [#/Vo l]Ordered By: Jaiden Nance on 08-21-2024 Eosinophils (Bld) [#/Vol] Automated eosinophil count 0.0-0.45 [facility] Eosinophils/100 WBC Auto (Bl d)Ordered By: Jaiden Nance on 08-21-2024 Eosinophils/100 WBC (Bld) Automated eosinophil % . [facility] Erythrocyte distribution wid th Auto (RBC) [Ratio]Ordered By: Jaiden Nance on 08-21-2024 Erythrocyte distribution width (RBC) [Ratio] Erythrocyte distribution width [Ratio] by Automated count 12.0-14.8 [facility] Globulin Calc (S) [Mass/Vol] Ordered By: Jaiden Nance on 08-21-2024 Globulin (S) [Mass/Vol] Serum globulin measurement by calculation (mass/volume) [facility] Glucose [Mass/volume] in Ser um or PlasmaOrdered By: Jaiden Nance on 08-21-2024 Glucose [Mass/Vol] Glucose [Mass/volume ] in Serum or Plasma 70-100 [facility] Comment on above: ADA recommended refe rence rangeRandom Glucose Reference Range is dependent on time and content of last meal. Glucose of more than 200 mg/dL in a nonstressed, ambulatory subject supports the diagnosis of Diabetes Mellitus. Hematocrit Auto (Bld) [Volum e fraction]Ordered By: Jaiden Nance on 08-21-2024 Hematocrit (Bld) [Volume fraction] Hematocrit [Volume Fraction] of Blood by Automated count Low 38.8-50.0 [facility] Hemoglobin [Mass/volume] in BloodOrdered By: Jaiden Nance on 08-21-2024 Hemoglobin (Bld) [Mass/Vol] Hemoglobin [Mass/volume] in Blood Low 13.0-17.0 [facility] Leukocytes [#/volume] correc suzy for nucleated erythrocytes in Blood by Automated counOrdered By: Jaiden Nance on 08-21-2024 WBC corrected for nucl RBC Auto (Bld) [#/Vol] Leukocytes [#/volume] corrected for nucleated erythrocytes in Blood by Automated coun 4.1-10.5 [facility] Lymphocytes Auto (Bld) [#/Vo l]Ordered By: Jaiden Nance on 08-21-2024 Lymphocytes (Bld) [#/Vol] Lymphocytes [#/volume] in Blood by Automated count Low 1.00-4.8 [facility] Lymphocytes/100 WBC Auto (Bl d)Ordered By: Jaiden Nance on 08-21-2024 Lymphocytes/100 WBC (Bld) Lymphocytes/100 leukocytes in Blood by Automated count . [facility] MCH Auto (RBC) [Entitic mass ]Ordered By: Jaiden Nance on 08-21-2024 MCH (RBC) [Entitic mass] MCH [Entitic mass] by Automated count 27.5-35.2 [facility] MCHC Auto (RBC) [Mass/Vol]Or dered By: Jaiden Nance on 08-21-2024 MCHC (RBC) [Mass/Vol] MCHC [Mass/volume] by Automated count 32.5-35.6 [facility] MCV Auto (RBC) [Entitic vol] Ordered By: Jaiden Nance on 08-21-2024 MCV (RBC) [Entitic vol] MCV [Entitic volume] by Automated count 83.5-101 [facility] Magnesiumon 08-21-2024 Magnesium [Mass/Vol] 1.8 mg/dL Low 1.9-2.7 [facility] Comment on above: Result Comment: PERF ORMED BY: [place] [address] PATHOLOGIST [employer] HEBER SHANNON M.D. Performed By: #### U A #### [address] Magnesium [Mass/volume] in S stephanie or PlasmaOrdered By: Jaiden Nance on 08-21-2024 Magnesium [Mass/Vol] Magnesium [Mass/vol ume] in Serum or Plasma Low 1.9-2.7 [facility] Monocytes Auto (Bld) [#/Vol] Ordered By: Jaiden Nance on 08-21-2024 Monocytes (Bld) [#/Vol] Automated blood monocyte count 0.0-0.8 [facility] Monocytes/100 WBC Auto (Bld) Ordered By: Jaiden Nance on 08-21-2024 Monocytes/100 WBC (Bld) Automated monocyte % . [facility] Neutrophils Auto (Bld) [#/Vo l]Ordered By: Jaiden Nance on 08-21-2024 Neutrophils (Bld) [#/Vol] Neutrophils [#/volume] in Blood by Automated count 1.8-7.7 [facility] Neutrophils/100 WBC Auto (Bl d)Ordered By: Jaiden Nance on 08-21-2024 Neutrophils/100 WBC (Bld) Automated neutrophil % . [facility] No Panel InformationOrdered By: Jaiden Nance on 08-21-2024 Estimated GFR (CKD-EPI) > 60.0 mL/Min [facility] Creatinine Clearance (Chem 59.79 [facility] Nucleated erythrocytes [Pres ence] in Blood by Automated countOrdered By: Jaiden Nance on 08-21-2024 Nucleated RBC Auto Ql (Bld) Nucleated erythrocytes [Presence] in Blood by Automated count 0-0.5 [facility] Platelet mean volume Auto (B ld) [Entitic vol]Ordered By: Jaiden Nance on 08-21-2024 Platelet mean volume (Bld) [Entitic vol] Platelet mean volume [Entitic volume] in Blood by Automated count 6.6-10.1 [facility] Platelets Auto (Bld) [#/Vol] Ordered By: Jaiden Nance on 08-21-2024 Platelets (Bld) [#/Vol] Platelets [#/volume] in Blood by Automated count 150-450 [facility] Potassium [Moles/volume] in Serum or PlasmaOrdered By: Jaiden Nance on 08-21-2024 Potassium [Moles/Vol] Potassium [Moles/v olume] in Serum or Plasma Low 3.5-5.1 [facility] Protein [Mass/volume] in Ser um or PlasmaOrdered By: Jaiden Nance on 08-21-2024 Protein [Mass/Vol] Protein [Mass/volume ] in Serum or Plasma Low 6.4-8.9 [facility] RBC Auto (Bld) [#/Vol]Ordere d By: Jaiden Nance on 08-21-2024 RBC (Bld) [#/Vol] Erythrocytes [#/volu me] in Blood by Automated count Low 3.90-5.60 [facility] Serum or plasma albumin/glob ulin mass ratioOrdered By: Jaiden Nance on 08-21-2024 Albumin/Globulin [Mass ratio] Serum or plasma albumin/globulin mass ratio [facility] Serum or plasma anion gap de terminationOrdered By: Jaiden Nance on 08-21-2024 Anion gap [Moles/Vol] Serum or plasma an ion gap determination 6.0-15.0 [facility] Sodium [Moles/volume] in Ser um or PlasmaOrdered By: Jaiden Nance on 08-21-2024 Sodium [Moles/Vol] Sodium [Moles/volume ] in Serum or Plasma 136-145 [facility] Urea nitrogen [Mass/volume] in Serum or PlasmaOrdered By: Jaiden Nance on 08-21-2024 Urea nitrogen [Mass/Vol] Urea nitrogen [Mass/volume] in Serum or Plasma 7-25 [facility] WBC Auto (Bld) [#/Vol]Ordere d By: Jaiden Nance on 08-21-2024 WBC (Bld) [#/Vol] Leukocytes [#/volume ] in Blood by Automated count 4.1-10.5 [facility] Alanine aminotransferase [En zymatic activity/volume] in Serum or PlasmaOrdered By: Louie Marrero on 08-20-2024 ALT [Catalytic activity/Vol] Alanine aminotransferase [Enzymatic activity/volume] in Serum or Plasma 7-52 [facility] Albumin [Mass/volume] in Ser um or Plasma by Bromocresol green (BCG) dye binding methoOrdered By: Louie Marrero on 08-20-2024 Albumin BCG dye [Mass/Vol] Albumin [Mass/volume] in Serum or Plasma by Bromocresol green (BCG) dye binding metho Low 3.5-5.7 [facility] Alkaline phosphatase [Enzyma tic activity/volume] in Serum or PlasmaOrdered By: Louie Marrero on 08-20-2024 ALP [Catalytic activity/Vol] Alkaline phosphatase [Enzymatic activity/volume] in Serum or Plasma 34-104 [facility] Appearance of UrineOrdered B y: Louie Marrero on 08-20-2024 Appearance (U) Urine appearance Clear [facility] Aspartate aminotransferase [ Enzymatic activity/volume] in Serum or PlasmaOrdered By: Louie Marrero on 08-20-2024 AST [Catalytic activity/Vol] Aspartate aminotransferase [Enzymatic activity/volume] in Serum or Plasma 13-39 [facility] Basophils Auto (Bld) [#/Vol] Ordered By: Louie Marrero on 08-20-2024 Basophils (Bld) [#/Vol] Automated basophil count 0.0-0.2 [facility] Basophils/100 WBC Auto (Bld) Ordered By: Louie Marrero on 08-20-2024 Basophils/100 WBC (Bld) Automated basophil % . [facility] Bilirubin Test strip Ql (U)O rdered By: Louie Marrero on 08-20-2024 Bilirubin Ql (U) Bilirubin.total [Presence] in Urine by Test strip Negative [facility] Bilirubin.total [Mass/volume ] in Serum or PlasmaOrdered By: Louie Marrero on 08-20-2024 Bilirubin [Mass/Vol] Bilirubin.total [Mass/volume] in Serum or Plasma 0.3-1.0 [facility] BioFire Not Detectedon 08-20 BioFire Not Detected Not detected Normal Not Detecte [facility] Comment on above: Result Comment: This is a duplicate RP2.1 COVID (PCR) result to be used for statistical tracking purpose only. PERFORMED BY: [place] [id number] PATHOLOGIST [employer] MANAGER HEBER SHANNON M.D. Performed By: #### M G, SCAN CBC, CMP #### [facility] [address] [place] [address] [place] Blood Cultureon 08-20-2024 Bacteria identified Cx Nom (Bld) MISSED X1 PT REFUSED TO LET ME TRY AGAIN RN NORRIS KNOWS NO GROWTH 5 DAYS PERFORMED BY: [place] [address] PATHOLOGIST [employer] MANAGER HEBER SHANNON M.D. Normal [facility] Comment on above: Performed By: #### E SR #### [address] Bacteria identified Cx Nom (Bld) right chest NO GROWTH 5 DAYS PERFORMED BY: [place] [address] PATHOLOGIST [employer] MANAGER HEBER SHANNON M.D. Normal [facility] Comment on above: Performed By: #### E SR #### [address] C reactive protein [Mass/vol ume] in Serum or PlasmaOrdered By: Louie Marrero on 08-20-2024 CRP [Mass/Vol] C reactive protein [Mass/volume] in Serum or Plasma High 0.0-0.5 [facility] C-Reactive Proteinon 025 C-Reactive Protein 3.3 mg/dL High 0.0-0.5 The [facility] Comment on above: Result Comment: PERF ORMED BY: [place] [address] PATHOLOGIST [employer] MANAGER HEBER SHANNON M.D. Performed By: #### E SR #### [address] COVID-19 Detected/Not Detect edOrdered By: Louie Marrero on 08-20-2024 SARS-CoV-2 (COVID-19) RNA MICHELLE+non-probe Ql (Nph) Not detected Not Detecte [facility] Comment on above: This is a duplicate RP2.1 COVID (PCR) result to be used for statistical tracking purpose only. Calcium [Mass/volume] in Ser um or PlasmaOrdered By: Louie Marrero on 08-20-2024 Calcium [Mass/Vol] Calcium [Mass/volume ] in Serum or Plasma Low 8.6-10.3 [facility] Carbon dioxide, total [Moles /volume] in Serum or PlasmaOrdered By: Louie Marrero on 08-20-2024 CO2 [Moles/Vol] Carbon dioxide, tota l [Moles/volume] in Serum or Plasma 21.0-31.0 [facility] Chloride [Moles/volume] in S stephanie or PlasmaOrdered By: Louie Marrero on 08-20-2024 Chloride [Moles/Vol] Chloride [Moles/vol ume] in Serum or Plasma 98-107 [facility] Color Auto (U)Ordered By: Abe Marrero on 08-20-2024 Color (U) Color of Urine by Auto Yellow [facility] Complete Blood Count Auto Di ffon 08-20-2024 Basophils (Bld) [#/Vol] 0.0 10*3/uL Normal 0.0-0.2 [facility] Comment on above: Result Comment: PERF ORMED BY: [place] [id number] PATHOLOGIST [employer] MANAGER HEBER SHANNON M.D. Performed By: #### U A #### [place] [address] [place] Basophils/100 WBC (Bld) 0.5 % Normal . [facility] Comment on above: Performed By: #### U A #### [address] Eosinophils (Bld) [#/Vol] 0.1 10*3/uL Normal 0.0-0.45 [facility] Comment on above: Performed By: #### U A #### [address] Eosinophils/100 WBC (Bld) 0.7 % Normal . [facility] Comment on above: Performed By: #### U A #### [address] Erythrocyte distribution width (RBC) [Ratio] 14.8 % Normal 12.0-14.8 [facility] Comment on above: Performed By: #### U A #### [address] Hematocrit (Bld) [Volume fraction] 34.2 % Low 38.8-50.0 [facility] Comment on above: Performed By: #### U A #### [address] Hemoglobin (Bld) [Mass/Vol] 11.4 g/dL Low 13.0-17.0 [facility] Comment on above: Performed By: #### U A #### [place] [address] [place] Lymphocytes (Bld) [#/Vol] 0.8 10*3/uL Low 1.00-4.8 [facility] Comment on above: Performed By: #### U A #### [place] [address] [place] Lymphocytes/100 WBC (Bld) 10.5 % Normal . [facility] Comment on above: Performed By: #### U A #### [place] [id number] [place] MCH (RBC) [Entitic mass] 31.0 pg Normal 27.5-35.2 [facility] Comment on above: Performed By: #### U A #### [address] MCV (RBC) [Entitic vol] 92.9 fL Normal 83.5-101 [facility] Comment on above: Performed By: #### U A #### [address] Mean Corpuscular HGB Conc 33.4 g/dL Normal 32.5-35.6 [facility] Comment on above: Performed By: #### U A #### [address] Monocytes (Bld) [#/Vol] 0.8 10*3/uL Normal 0.0-0.8 [facility] Comment on above: Performed By: #### U A #### [address] Monocytes/100 WBC (Bld) 23.19 % High 0.00-20.00 [facility] Comment on above: Result Comment: For adults in ED, MDW > 20.0 may be associated with a higher risk of sepsis during the first 12 hrs of hospital admission Performed By: #### U A #### [address] Monocytes/100 WBC (Bld) 11.3 % Normal . [facility] Comment on above: Performed By: #### U A #### [address] Neutrophils (Bld) [#/Vol] 5.7 10*3/uL Normal 1.8-7.7 [facility] Comment on above: Performed By: #### U A #### [address] Neutrophils/100 WBC (Bld) 77.0 % Normal . [facility] Comment on above: Performed By: #### U A #### [address] NRBC% 0.2 /100{WBC} Normal 0-0.5 [facility] Comment on above: Performed By: #### U A #### [address] Platelet mean volume (Bld) [Entitic vol] 8.1 fL Normal 6.6-10.1 [facility] Comment on above: Performed By: #### U A #### [address] Platelets (Bld) [#/Vol] 234 10*3/uL Normal 150-450 [facility] Comment on above: Performed By: #### U A #### [address] RBC (Bld) [#/Vol] 3.68 10*6/uL Low 3.90-5.60 [facility] Comment on above: Performed By: #### U A #### [address] WBC (Bld) [#/Vol] 7.4 10*3/uL Normal 4.1-10.5 [facility] Comment on above: Performed By: #### U A #### [address] Comprehensive Metabolic Pane obdulio 08-20-2024 Albumin [Mass/Vol] 3.4 g/dL Low 3.5-5.7 The [facility] Comment on above: Performed By: #### E SR #### [address] Albumin/Globulin [Mass ratio] 1.4 {ratio} Normal [facility] Comment on above: Performed By: #### E SR #### [address] ALP [Catalytic activity/Vol] 66 U/L Normal 34-104 [facility] Comment on above: Performed By: #### E SR #### [address] ALT [Catalytic activity/Vol] 17 U/L Normal 7-52 [facility] Comment on above: Performed By: #### E SR #### [address] Anion gap [Moles/Vol] 10.3 mmol/L Normal 6.0-15.0 [facility] Comment on above: Performed By: #### E SR #### [address] AST [Catalytic activity/Vol] 18 U/L Normal 13-39 [facility] Comment on above: Performed By: #### E SR #### [address] Bilirubin [Mass/Vol] 0.6 mg/dL Normal 0.3-1.0 [facility] Comment on above: Performed By: #### E SR #### [address] Calcium [Mass/Vol] 8.4 mg/dL Low 8.6-10.3 The [facility] Comment on above: Performed By: #### E SR #### [address] Chloride [Moles/Vol] 104 mmol/L Normal 98-107 [facility] Comment on above: Performed By: #### E SR #### [address] CO2 [Moles/Vol] 25.4 mmol/L Normal 21.0-31.0 The [facility] Comment on above: Performed By: #### E SR #### [address] Creatinine [Mass/Vol] 0.85 mg/dL Normal 0.70-1.30 [facility] Comment on above: Performed By: #### E SR #### [address] Creatinine Clr Calc Pharmacy 58.71 Normal [facility] Comment on above: Result Comment: PERF ORMED BY: [address] [place] [address] PATHOLOGIST [employer] HEBER SHANNON M.D. Performed By: #### E SR #### [place] [address] [place] GFR/1.73 sq M.predicted MDRD (S/P/Bld) [Vol rate/Area] mL/min/{1.73_m2} Normal [facility] Comment on above: Performed By: #### E SR #### [address] Globulin (S) [Mass/Vol] 2.5 g/dL Normal [facility] Comment on above: Performed By: #### E SR #### [address] Glucose [Mass/Vol] 106 mg/dL High 70-100 The [facility]placed by [facility] Comment on above: Result Comment: [place] Glucose Reference Range is dependent on time and content of last meal. Glucose of more than 200 mg/dL in a nonstressed, ambulatory subject supports the diagnosis of Diabetes Mellitus. ADA recommended reference range Performed By: #### E SR #### [address] Potassium [Moles/Vol] 3.7 mmol/L Normal 3.5-5.1 [facility] Comment on above: Performed By: #### E SR #### [address] Protein [Mass/Vol] 5.9 g/dL Low 6.4-8.9 The [facility] Comment on above: Performed By: #### E SR #### [place] [address] [place] Sodium [Moles/Vol] 136 mmol/L Normal 136-145 The [facility] Comment on above: Performed By: #### E SR #### [address] Urea nitrogen [Mass/Vol] 16 mg/dL Normal 7-25 [facility] Comment on above: Performed By: #### E SR #### [address] Creatinine [Mass/volume] in Serum or PlasmaOrdered By: Louie Marrero on 08-20-2024 Creatinine [Mass/Vol] Creatinine [Mass/v olume] in Serum or Plasma 0.70-1.30 [facility] ECG 12 lead ECGon 08-20-2024 ECG 12 lead ECG [facility] [place] [address] [place] [address] Electrocardiograph Report Signed Patient: Jeremie Bennett MR#: [id number] : 1940 Acct:[id number] Age/Sex: 83 / M ADM Date: 08/20/24 Loc: ER Room: Type: [facility] ER Attending Dr: Ordering Provider: Louie Marrero [...] ECGs available Confirmed by LOUIE MARRERO DO ([id number]) on 08/20/2024 7:55:25 PM Referred By: Electronically Signed By: LOUIE MARRERO DO Transcribed By: MUS Signed By Louie Marrero DO 08/20 Normal [facility] Eosinophils Auto (Bld) [#/Vo l]Ordered By: Louie Marrero on 08-20-2024 Eosinophils (Bld) [#/Vol] Automated eosinophil count 0.0-0.45 [facility] Eosinophils/100 WBC Auto (Bl d)Ordered By: Louie Marerro on 08-20-2024 Eosinophils/100 WBC (Bld) Automated eosinophil % . [facility] Erythrocyte Sedimentation Ra ciro 08-20-2024 ESR (Bld) [Velocity] 42 mm/h High 0-19 [facility] Comment on above: Result Comment: PERF ORMED BY: [place] [address] PATHOLOGIST [employer] HEBER SHANNON M.D. Performed By: #### E #### [address] Erythrocyte distribution wid th Auto (RBC) [Ratio]Ordered By: Louie Marrero on 08-20-2024 Erythrocyte distribution width (RBC) [Ratio] Erythrocyte distribution width [Ratio] by Automated count 12.0-14.8 [facility] Erythrocyte sedimentation ra te by Photometric methodOrdered By: Jaiden Nance on 08-20-2024 ESR Photometric method (Bld) [Velocity] Erythrocyte sedimentation rate by Photometric method High 0-19 [facility] Globulin Calc (S) [Mass/Vol] Ordered By: Louie Marrero on 08-20-2024 Globulin (S) [Mass/Vol] Serum globulin measurement by calculation (mass/volume) [facility] Glucose [Mass/volume] in Ser um or PlasmaOrdered By: Louie Marrero on 08-20-2024 Glucose [Mass/Vol] Glucose [Mass/volume ] in Serum or Plasma High 70-100 [facility] Comment on above: ADA recommended refe rence rangeRandom Glucose Reference Range is dependent on time and content of last meal. Glucose of more than 200 mg/dL in a nonstressed, ambulatory subject supports the diagnosis of Diabetes Mellitus. Glucose [Mass/volume] in Uri ne by Test stripOrdered By: Louie Marrero on 08-20-2024 Glucose Test strip (U) [Mass/Vol] Glucose [Mass/volume] in Urine by Test strip Normal [facility] Hematocrit Auto (Bld) [Volum e fraction]Ordered By: Louie Marrero on 08-20-2024 Hematocrit (Bld) [Volume fraction] Hematocrit [Volume Fraction] of Blood by Automated count Low 38.8-50.0 [facility] Hemoglobin Test strip Ql (U) Ordered By: Louie Marrero on 08-20-2024 Hemoglobin Ql (U) Hemoglobin [Presence ] in Urine by Test strip Negative [facility] Hemoglobin [Mass/volume] in BloodOrdered By: Louie Marrero 08-20-2024 Hemoglobin (Bld) [Mass/Vol] Hemoglobin [Mass/volume] in Blood Low 13.0-17.0 [facility] INR in Platelet poor plasma by Coagulation assayOrdered By: Louie Marrero on 08-20-2024 INR Coag (PPP) [Relative time] INR in Platelet poor plasma by Coagulation assay [facility] Comment on above: INR Therapeutic Rang e [...] n Urine by Test strip High Negative [facility] Laboratory - Microbiology an d Antimicrobial susceptibilityOrdered By: Louie Marrero on 08-20-2024 Bacteria identified Cx Nom (Bld) NO GROWTH 5 DAYS [facility] Bacteria identified Cx Nom (Bld) NO GROWTH 5 DAYS [facility] Lactate [Moles/volume] in Se rum or PlasmaOrdered By: Louie Marrero on 08-20-2024 Lactate [Moles/Vol] Lactate [Moles/volum e] in Serum or Plasma 0.5-1.9 [facility] Comment on above: Lactic Acid referenc e range has been updated to 0.5 1.9 mmol/L and the critical range of 2.0 or greater. Lactic Acidon 08-20-2024 Lactate [Moles/Vol] 0.8 mmol/L Normal 0.5-1.9 [facility] Comment on above: Result Comment: Lact ic Acid reference range has been updated to 0.5 ? 1.9 mmol/L and the critical range of 2.0 or greater. PERFORMED BY: [place] [address] PATHOLOGIST [employer]NAGER HEBER SHANNON M.D. Performed By: #### U A #### [address] Leukocyte esterase [Presence ] in Urine by Test stripOrdered By: Louie Marrero on 08-20-2024 Leukocyte esterase Test strip Ql (U) Leukocyte esterase [Presence] in Urine by Test strip Negative [facility] Leukocytes [#/volume] correc suzy for nucleated erythrocytes in Blood by Automated counOrdered By: Louie Marrero on 08-20-2024 WBC corrected for nucl RBC Auto (Bld) [#/Vol] Leukocytes [#/volume] corrected for nucleated erythrocytes in Blood by Automated coun 4.1-10.5 [facility] Lymphocytes Auto (Bld) [#/Vo l]Ordered By: Louie Marrero on 08-20-2024 Lymphocytes (Bld) [#/Vol] Lymphocytes [#/volume] in Blood by Automated count Low 1.00-4.8 [facility] Lymphocytes/100 WBC Auto (Bl d)Ordered By: Louie Marrero on 08-20-2024 Lymphocytes/100 WBC (Bld) Lymphocytes/100 leukocytes in Blood by Automated count . [facility] MCH Auto (RBC) [Entitic mass ]Ordered By: Louie Marrero on 08-20-2024 MCH (RBC) [Entitic mass] MCH [Entitic mass] by Automated count 27.5-35.2 [facility] MCHC Auto (RBC) [Mass/Vol]Or dered By: Louie Marrero on 08-20-2024 MCHC (RBC) [Mass/Vol] MCHC [Mass/volume] by Automated count 32.5-35.6 [facility] MCV Auto (RBC) [Entitic vol] Ordered By: Louie Marrero on 08-20-2024 MCV (RBC) [Entitic vol] MCV [Entitic volume] by Automated count 83.5-101 [facility] Monocyte distribution width [Entitic volume] in Blood by AutomatedOrdered By: Louie Marrero on 08-20-2024 Monocyte distribution width Auto (Bld) [Entitic vol] Monocyte distribution width [Entitic volume] in Blood by Automated High 0.00-20.00 [facility] Comment on above: For adults in ED, MD W > 20.0 may be associated with a higher risk of sepsis during the first 12 hrs of hospital admission Monocytes Auto (Bld) [#/Vol] Ordered By: Louie Marrero on 08-20-2024 Monocytes (Bld) [#/Vol] Automated blood monocyte count 0.0-0.8 [facility] Monocytes/100 WBC Auto (Bld) Ordered By: Louie Marrero on 08-20-2024 Monocytes/100 WBC (Bld) Automated monocyte % . [facility] Neutrophils Auto (Bld) [#/Vo l]Ordered By: Louie Marrero on 08-20-2024 Neutrophils (Bld) [#/Vol] Neutrophils [#/volume] in Blood by Automated count 1.8-7.7 [facility] Neutrophils/100 WBC Auto (Bl d)Ordered By: Louie Marrero on 08-20-2024 Neutrophils/100 WBC (Bld) Automated neutrophil % . [facility] Nitrite Test strip Ql (U)Ord ered By: Louie Marrero on 08-20-2024 Nitrite Ql (U) Nitrite [Presence] i n Urine by Test strip Negative [facility] No Panel InformationOrdered By: Louie Marrero on 08-20-2024 Estimated GFR (CKD-EPI) > 60.0 mL/Min [facility] Pharmacy Creatinine Clearance (Chem 58.71 [facility] Nucleated erythrocytes [Pres ence] in Blood by Automated countOrdered By: Louie Marrero on 08-20-2024 Nucleated RBC Auto Ql (Bld) Nucleated erythrocytes [Presence] in Blood by Automated count 0-0.5 [facility] Platelet mean volume Auto (B ld) [Entitic vol]Ordered By: Louie Marrero on 08-20-2024 Platelet mean volume (Bld) [Entitic vol] Platelet mean volume [Entitic volume] in Blood by Automated count 6.6-10.1 [facility] Platelets Auto (Bld) [#/Vol] Ordered By: Louie Marrero on 08-20-2024 Platelets (Bld) [#/Vol] Platelets [#/volume] in Blood by Automated count 150-450 [facility] Potassium [Moles/volume] in Serum or PlasmaOrdered By: Louie Marrero on 08-20-2024 Potassium [Moles/Vol] Potassium [Moles/v olume] in Serum or Plasma 3.5-5.1 [facility] Protein Test strip (U) [Mass /Vol]Ordered By: Louie Marrero on 08-20-2024 Protein (U) [Mass/Vol] Protein [Mass/vol ume] in Urine by Test strip Negative [facility] Protein [Mass/volume] in Ser um or PlasmaOrdered By: Louie Marrero on 08-20-2024 Protein [Mass/Vol] Protein [Mass/volume ] in Serum or Plasma Low 6.4-8.9 [facility] Prothrombin Time INRon 08-20 INR Coag (PPP) [Relative time] 1.1 {INR} Normal [facility] Comment on above: Result Comment: [...] heart valves: 3 - 4.5 PERFORMED BY: [place] [address] PATHOLOGIST [employer] MANAGER HEBER SHANNON M.D. Performed By: #### E SR #### [facility] [address] [place] [address] PT Coag (PPP) [Time] 12.9 s Normal 9.0-12.9 [facility] Comment on above: Result Comment: A matocrit value greater than 55% may lead to inaccurate results in coagulation testing. Patients having hematocrit values >55% require a special collection tube for coagulation studies. Please contact the laboratory at [phone] for redraw instructions. Performed By: #### E SR #### [facility] [address] [place] [address] [facility] Prothrombin time (PT)Ordered By: Louie Marrero on 08-20-2024 PT Coag (PPP) [Time] Prothrombin time (PT) 9.0- 12.9 [facility] Comment on above: A hematocrit value g reater than 55% may lead to inaccurate results in coagulation testing. Patients having hematocrit values >55% require a special collection tube for coagulation studies. Please contact the laboratory at [phone] for redraw instructions. RBC Auto (Bld) [#/Vol]Ordere d By: Louie Marrero on 08-20-2024 RBC (Bld) [#/Vol] Erythrocytes [#/volu me] in Blood by Automated count Low 3.90-5.60 [facility] Respiratory (Upper) Panel, P CRon 08-20-2024 Respiratory [...] A H3 Blank Space ---- PERFORMED BY: [facility] [address] [place] [address] PATHOLOGIST [employer]NAGER HEBER SHANNON M.D. Normal [facility] Comment on above: Performed By: #### M G, SCAN CBC, CMP #### [facility] [address] Respiratory pathogens DNA an d RNA panel - Nasopharynx by MICHELLE with non-probe detectionOrdered By: Louie Marrero on 08-20-2024 Respiratory pathogens DNA and RNA panel MICHELLE+non-probe (Nph) Respiratory pathogens DNA and RNA panel - Nasopharynx by MICHELLE with non-probe detection [facility] Serum or plasma albumin/glob ulin mass ratioOrdered By: Louie Marrero on 08-20-2024 Albumin/Globulin [Mass ratio] Serum or plasma albumin/globulin mass ratio [facility] Serum or plasma anion gap de terminationOrdered By: Louie Marrero on 08-20-2024 Anion gap [Moles/Vol] Serum or plasma an ion gap determination 6.0-15.0 [facility] Sodium [Moles/volume] in Ser um or PlasmaOrdered By: Louie Marrero on 08-20-2024 Sodium [Moles/Vol] Sodium [Moles/volume ] in Serum or Plasma 136-145 [facility] Specific gravity Test strip (U) [Rel density]Ordered By: Louie Marrero on 08-20-2024 Specific gravity (U) [Rel density] Specific gravity of Urine by Test strip 1.001-1.03 0 [facility] Troponin I High Sensitivityo n 08-20-2024 Troponin I High Sensitivity 12 Normal 0-20 [facility] Comment on above: Result Comment: The Troponin units of report have been changed to meet the Chest Pain Accreditation requirement, element EC5.M1l2. Troponin units are changed from pg/ml to ng/L. Also, the decimal is removed and results are in whole numbers. PERFORMED BY: [place] [address] PATHOLOGIST [employer] MANAGER HEBER SHANNON M.D. Performed By: #### M G, SCAN CBC, CMP #### [address] Troponin I.cardiac [Mass/vol ume] in Serum or Plasma by Detection limit <= 0.01 ng/Ordered By: Louie Marrero on 08-20-2024 Troponin I.cardiac DL <= 0.01 ng/mL [Mass/Vol] Troponin I.cardiac [Mass/volume] in Serum or Plasma by Detection limit <= 0.01 ng/ 0-20 [facility] Comment on above: The Troponin units o f report have been changed to meet the Chest Pain Accreditation requirement, element EC5.M1l2. Troponin units are changed from pg/ml to ng/L. Also, the decimal is removed and results are in whole numbers. Urea nitrogen [Mass/volume] in Serum or PlasmaOrdered By: Louie Marrero on 08-20-2024 Urea nitrogen [Mass/Vol] Urea nitrogen [Mass/volume] in Serum or Plasma 12-08 [facility] Urinalysison 08-20-2024 Appearance (U) Clear Normal Clear [facility] Comment on above: Order Comment: Name Collection Type:: Straight Catheter Performed By: #### M G, SCAN CBC, CMP #### [facility] [address] [place] [address] [place] Bilirubin,Urine Negative Normal Negative [facility] Comment on above: Order Comment: Name Collection Type:: Straight Catheter Performed By: #### M G, SCAN CBC, CMP #### [facility] [address] [place] [address] [place] Color (U) Light-Yellow Normal Yellow [facility] Comment on above: Order Comment: Name Collection Type:: Straight Catheter Performed By: #### M G, SCAN CBC, CMP #### [facility] [address] [place] [address] [place] Glucose Ql (U) Normal Normal Normal [facility] Comment on above: Order Comment: Name Collection Type:: Straight Catheter Performed By: #### M G, SCAN CBC, CMP #### [facility] [address] [place] [address] [place] Ketones Ql (U) 1+ High Negative [facility] Comment on above: Order Comment: Name Collection Type:: Straight Catheter Performed By: #### M G, SCAN CBC, CMP #### [facility] [address] [place] [address] [place] Leukocyte esterase Test strip Ql (U) Negative Normal Negative [facility] Comment on above: Order Comment: Name Collection Type:: Straight Catheter Performed By: #### M G, SCAN CBC, CMP #### [facility] [address] [place] [address] [place] Nitrite,Urine Negative Normal Negative [facility] Comment on above: Order Comment: Name Collection Type:: Straight Catheter Performed By: #### M G, SCAN CBC, CMP #### [address] Occult Blood,Urine Negative Normal Negative The [facility] Comment on above: Order Comment: Name Collection Type:: Straight Catheter Result Comment: PERF ORMED BY: [place] [address] PATHOLOGIST [employer] MANAGER HEBER SHANNON M.D. Performed By: #### M G, SCAN CBC, CMP #### [address] pH (U) 5.5 [pH] Normal 5.0-9.0 [facility] Comment on above: Order Comment: Name Collection Type:: Straight Catheter Performed By: #### M G, SCAN CBC, CMP #### [facility] [address] [place] [address] Protein,Urine Negative Normal Negative [facility] Comment on above: Order Comment: Name Collection Type:: Straight Catheter Performed By: #### M G, SCAN CBC, CMP #### [place] [address] [place] Specificy [place],Urine 1.017 Normal 1.001-1.03 0 [facility] Comment on above: Order Comment: Name Collection Type:: Straight Catheter Performed By: #### M G, SCAN CBC, CMP #### [facility] [address] [place] [address] [place] Urobilinogen,Urine Normal Normal Normal The [facility] Comment on above: Order Comment: Name Collection Type:: Straight Catheter Performed By: #### M G, SCAN CBC, CMP #### [facility] [address] [place] [address] [place] Urobilinogen Test strip (U) [Mass/Vol]Ordered By: Louie Marrero on 08-20-2024 Urobilinogen (U) [Mass/Vol] Urobilinogen [Mass/volume] in Urine by Test strip Normal [facility] WBC Auto (Bld) [#/Vol]Ordere d By: Louie Marrero on 08-20-2024 WBC (Bld) [#/Vol] Leukocytes [#/volume ] in Blood by Automated count 4.1-10.5 [facility] X-ray reportOrdered By: Brooks Benavides on 08-20-2024 Study report [facility] Main [address] [address] XRay Report Signed Patient: Jeremie Bennett MR#: [id number] : 1940 Acct:[id number] Age/Sex: 83 / M ADM Date: 5 Loc: ER Room: Type: [facility] ER Attending Dr: Copies to: Louie Marrero DO~ Ordering Provider: Louie Marrero DO Date of Service: 08/20/24 XR/XR chest 1V portable: Fever SINGLE VIEW CHEST CLINICAL HISTORY: Fever, recently finished chemotherapy, cough for 3 weeks COMPARISON: 07/17/2024 FINDINGS: Left-sided pacemaker device. Right-sided [id number]. Posterior changes fromprior ACDF. Mildly enlarged cardiac silhouette. Minimal hazy bibasilar opacities similar prior exam. No effusion or pneumothorax. XR/XR chest 1V portable IMPRESSION: MILD BIBASILAR AIRSPACE OPACITIES, THESE APPEAR SIMILAR PRIOR EXAM. Impression dictated by: Rah Benavides M.D.08/20/2024 6:32 PM Dictation Location: [place] [address] Transcribed By: [facility] 08/20/241831 Dictated By: Rah Benavides MD 08/20/241830 Signed By: 08/20/24 183 [facility] Work Phone: XR chest 1V portableon 08-20 XR chest 1V portable [facility] Main [address] [address] XRay Report Signed Patient: Jeremie Bennett MR#: [id number] : 1940 Acct:[id number] Age/Sex: 83 / M ADM Date: 08/20/24 Loc: ER Room: Type: [facility] ER Attending Dr: Copies to: Louie Marrero DO Ordering Provider: Louie Marrero DO Date of Service: 08/20/24 XR/XR chest 1V portable: Fever SINGLE VIEW CHEST CLINICAL HISTORY: Fever, recently finished chemotherapy, cough for 3 weeks COMPARISON: 07/17/2024 FINDINGS: Left-sided pacemaker device. Right-sided [id number]. Posterior changes from prior ACDF. Mildly enlarged cardiac silhouette. Minimal hazy bibasilar opacities similar prior exam. No effusion or pneumothorax. XR/XR chest 1V portable IMPRESSION: MILD BIBASILAR AIRSPACE OPACITIES, THESE APPEAR SIMILAR PRIOR EXAM. Impression dictated by: Rah Benavides M.D.08/20/2024 6:32 PM Dictation Location: [place] [address] Transcribed By: PERLA 08/20/241831 Dictated By: Rah Benavides MD 08/20/241830 Signed By: 08/20/241831 Normal [facility] pH Test strip (U)Ordered By: Louie Marrero on 08-20-2024 pH (U) pH of Urine by Test strip 5.0-9.0 [facility] Alanine aminotransferase [En zymatic activity/volume] in Serum or PlasmaOrdered By: Talib Faustin on 08-16-2024 ALT [Catalytic activity/Vol] Alanine aminotransferase [Enzymatic activity/volume] in Serum or Plasma 7-52 [facility] Albumin [Mass/volume] in Ser um or Plasma by Bromocresol green (BCG) dye binding methoOrdered By: Talib Faustin on 08-16-2024 Albumin BCG dye [Mass/Vol] Albumin [Mass/volume] in Serum or Plasma by Bromocresol green (BCG) dye binding metho 3.5-5.7 [facility] Alkaline phosphatase [Enzyma tic activity/volume] in Serum or PlasmaOrdered By: Talib Faustin on 08-16-2024 ALP [Catalytic activity/Vol] Alkaline phosphatase [Enzymatic activity/volume] in Serum or Plasma 34-104 [facility] Aspartate aminotransferase [ Enzymatic activity/volume] in Serum or PlasmaOrdered By: Talib Faustin on 08-16-2024 AST [Catalytic activity/Vol] Aspartate aminotransferase [Enzymatic activity/volume] in Serum or Plasma 13-39 [facility] Basophils Auto (Bld) [#/Vol] Ordered By: rick Faustin on 08-16-2024 Basophils (Bld) [#/Vol] Automated basophil count 0.0-0.2 [facility] Basophils/100 WBC Auto (Bld) Ordered By: [facility] Ramin on 08-16-2024 Basophils/100 WBC (Bld) Automated basophil % . [facility] Bilirubin.total [Mass/volume ] in Serum or PlasmaOrdered By: [facility] Ramin on 08-16-2024 Bilirubin [Mass/Vol] Bilirubin.total [Mass/volume] in Serum or Plasma 0.3-1.0 [facility] Calcium [Mass/volume] in Ser um or PlasmaOrdered By: [facility] Ramin on 08-16-2024 Calcium [Mass/Vol] Calcium [Mass/volume ] in Serum or Plasma 8.6-10.3 [facility] Carbon dioxide, total [Moles /volume] in Serum or PlasmaOrdered By: [facility]rove on 08-16-2024 CO2 [Moles/Vol] Carbon dioxide, tota l [Moles/volume] in Serum or Plasma 21.0-31.0 [facility] Chloride [Moles/volume] in S stephanie or PlasmaOrdered By: [facility] CenterConi on 08-16-2024 Chloride [Moles/Vol] Chloride [Moles/vol ume] in Serum or Plasma 98-107 [facility] Complete Blood Count Auto Di ffon 08-16-2024 Basophils (Bld) [#/Vol] 0.1 10*3/uL Normal 0.0-0.2 [facility] Comment on above: Result Comment: PERF ORMED BY: [place] [address] PATHOLOGIST [employer]NA[employer] HEBER SHANNON M.D. Performed By: #### E #### [address] Basophils/100 WBC (Bld) 1.1 % Normal . [facility] Comment on above: Performed By: #### E SR #### [place] [address] [place] Eosinophils (Bld) [#/Vol] 0.1 10*3/uL Normal 0.0-0.45 [facility] Comment on above: Performed By: #### E SR #### [address] Eosinophils/100 WBC (Bld) 0.7 % Normal . [facility] Comment on above: Performed By: #### E SR #### [address] Erythrocyte distribution width (RBC) [Ratio] 15.2 % High 12.0-14.8 [facility] Comment on above: Performed By: #### E SR #### [address] Hematocrit (Bld) [Volume fraction] 34.8 % Low 38.8-50.0 [facility] Comment on above: Performed By: #### E SR #### [address] Hemoglobin (Bld) [Mass/Vol] 11.7 g/dL Low 13.0-17.0 [facility] [facility] Comment on above: Performed By: #### E SR #### [address] Lymphocytes (Bld) [#/Vol] 0.6 10*3/uL Low 1.00-4.8 [facility] Comment on above: Performed By: #### E SR #### [address] Lymphocytes/100 WBC (Bld) 6.4 % Normal . [facility] Comment on above: Performed By: #### E SR #### [address] MCH (RBC) [Entitic mass] 30.8 pg Normal 27.5-35.2 [facility] Comment on above: Performed By: #### E SR #### [address] MCV (RBC) [Entitic vol] 91.9 fL Normal 83.5-101 [facility] Comment on above: Performed By: #### E SR #### [address] Mean Corpuscular HGB Conc 33.5 g/dL Normal 32.5-35.6 [facility] Comment on above: Performed By: #### E SR #### [address] Monocytes (Bld) [#/Vol] 1.1 10*3/uL High 0.0-0.8 [facility] Comment on above: Performed By: #### E SR #### [address] Monocytes/100 WBC (Bld) 12.6 % Normal . [facility] Comment on above: Performed By: #### E SR #### [address] Neutrophils (Bld) [#/Vol] 7.2 10*3/uL Normal 1.8-7.7 [facility] Comment on above: Performed By: #### E SR #### [address] Neutrophils/100 WBC (Bld) 79.2 % Normal . [facility] Comment on above: Performed By: #### E SR #### [address] NRBC% 0.1 /100{WBC} Normal 0-0.5 The [facility] Comment on above: Performed By: #### E SR #### [address] Platelet mean volume (Bld) [Entitic vol] 7.5 fL Normal 6.6-10.1 The [facility] Comment on above: Performed By: #### E SR #### [place] [address] [place] Platelets (Bld) [#/Vol] 236 10*3/uL Normal 150-450 [facility] Comment on above: Performed By: #### E SR #### [address] RBC (Bld) [#/Vol] 3.79 10*6/uL Low 3.90-5.60 [facility] Comment on above: Performed By: #### E SR #### [address] WBC (Bld) [#/Vol] 9.1 10*3/uL Normal 4.1-10.5 [facility] Comment on above: Performed By: #### E SR #### [address] Comprehensive Metabolic Pane obdulio 08-16-2024 Albumin [Mass/Vol] 3.6 g/dL Normal 3.5-5.7 The [facility]placed [facility] Comment on above: Performed By: #### E SR #### [address] Albumin/Globulin [Mass ratio] 1.4 {ratio} Normal [facility] Comment on above: Performed By: #### E SR #### [address] ALP [Catalytic activity/Vol] 73 U/L Normal 34-104 [facility] Comment on above: Performed By: #### E SR #### [address] ALT [Catalytic activity/Vol] 14 U/L Normal 7-52 [facility] Comment on above: Performed By: #### E SR #### [address] Anion gap [Moles/Vol] 10.5 mmol/L Normal 6.0-15.0 [facility] Comment on above: Performed By: #### E SR #### [address] AST [Catalytic activity/Vol] 13 U/L Normal 13-39 [facility] Comment on above: Performed By: #### E SR #### [address] Bilirubin [Mass/Vol] 0.4 mg/dL Normal 0.3-1.0 [facility] Comment on above: Performed By: #### E SR #### [facility] [address] Calcium [Mass/Vol] 8.6 mg/dL Normal 8.6-10.3 The [facility]placed by [facility] Comment on above: Performed By: #### E SR #### [address] Chloride [Moles/Vol] 107 mmol/L Normal 98-107 [facility] Comment on above: Performed By: #### E SR #### [address] CO2 [Moles/Vol] 24.4 mmol/L Normal 21.0-31.0 The [facility] Comment on above: Performed By: #### E SR #### [address] Creatinine [Mass/Vol] 0.83 mg/dL Normal 0.70-1.30 [facility] Comment on above: Performed By: #### E SR #### [address] Creatinine Clr Calc Pharmacy 59.79 Normal [facility] Comment on above: Result Comment: PERF ORMED BY: [place] [address] PATHOLOGIST [employer] HEBER SHANNON M.D. Performed By: #### E SR #### [address] GFR/1.73 sq M.predicted MDRD (S/P/Bld) [Vol rate/Area] mL/min/{1.73_m2} Normal [facility] Comment on above: Performed By: #### E SR #### [address] Globulin (S) [Mass/Vol] 2.6 g/dL Normal [facility] Comment on above: Performed By: #### E SR #### [facility] [address] Glucose [Mass/Vol] 119 mg/dL High 70-100 The Replaced by [facility] Comment on above: Result Comment: [place] Glucose Reference Range is dependent on time and content of last meal. Glucose of more than 200 mg/dL in a nonstressed, ambulatory subject supports the diagnosis of Diabetes Mellitus. ADA recommended reference range Performed By: #### E SR #### [address] Potassium [Moles/Vol] 3.9 mmol/L Normal 3.5-5.1 The [facility] Comment on above: Performed By: #### E SR #### [address] Protein [Mass/Vol] 6.2 g/dL Low 6.4-8.9 The [facility] Comment on above: Performed By: #### E SR #### [address] Sodium [Moles/Vol] 138 mmol/L Normal 136-145 The [facility] Comment on above: Performed By: #### E SR #### [address] Urea nitrogen [Mass/Vol] 19 mg/dL Normal 7-25 [facility] Comment on above: Performed By: #### E SR #### [place] [address] [place] Creatinine [Mass/volume] in Serum or PlasmaOrdered By: Talib Faustin on 08-16-2024 Creatinine [Mass/Vol] Creatinine [Mass/v olume] in Serum or Plasma 0.70-1.30 [facility] Eosinophils Auto (Bld) [#/Vo l]Ordered By: Talib aFustin on 08-16-2024 Eosinophils (Bld) [#/Vol] Automated eosinophil count 0.0-0.45 [facility] Eosinophils/100 WBC Auto (Bl d)Ordered By: rick Faustin on 08-16-2024 Eosinophils/100 WBC (Bld) Automated eosinophil % . [facility] Erythrocyte distribution wid th Auto (RBC) [Ratio]Ordered By: Talib Faustin on 08-16-2024 Erythrocyte distribution width (RBC) [Ratio] Erythrocyte distribution width [Ratio] by Automated count High 12.0-14.8 [facility] Globulin Calc (S) [Mass/Vol] Ordered By: rick Faustin on 08-16-2024 Globulin (S) [Mass/Vol] Serum globulin measurement by calculation (mass/volume) [facility] Glucose [Mass/volume] in Ser um or PlasmaOrdered By: rick Faustin on 08-16-2024 Glucose [Mass/Vol] Glucose [Mass/volume ] in Serum or Plasma High 70-100 [facility] Comment on above: ADA recommended refe rence rangeRandom Glucose Reference Range is dependent on time and content of last meal. Glucose of more than 200 mg/dL in a nonstressed, ambulatory subject supports the diagnosis of Diabetes Mellitus. Hematocrit Auto (Bld) [Volum e fraction]Ordered By: rick Faustin on 08-16-2024 Hematocrit (Bld) [Volume fraction] Hematocrit [Volume Fraction] of Blood by Automated count Low 38.8-50.0 [facility] Hemoglobin [Mass/volume] in BloodOrdered By: rick Faustin on 08-16-2024 Hemoglobin (Bld) [Mass/Vol] Hemoglobin [Mass/volume] in Blood Low 13.0-17.0 [facility] Leukocytes [#/volume] correc suzy for nucleated erythrocytes in Blood by Automated counOrdered By: rick Faustin on 08-16-2024 WBC corrected for nucl RBC Auto (Bld) [#/Vol] Leukocytes [#/volume] corrected for nucleated erythrocytes in Blood by Automated coun 4.1-10.5 [facility] Lymphocytes Auto (Bld) [#/Vo l]Ordered By: rick Faustin on 08-16-2024 Lymphocytes (Bld) [#/Vol] Lymphocytes [#/volume] in Blood by Automated count Low 1.00-4.8 [facility] Lymphocytes/100 WBC Auto (Bl d)Ordered By: Talib Faustin on 08-16-2024 Lymphocytes/100 WBC (Bld) Lymphocytes/100 leukocytes in Blood by Automated count . [facility] MCH Auto (RBC) [Entitic mass ]Ordered By: Talib Faustin on 08-16-2024 MCH (RBC) [Entitic mass] MCH [Entitic mass] by Automated count 27.5-35.2 [facility] MCHC Auto (RBC) [Mass/Vol]Or dered By: Talib Faustin on 08-16-2024 MCHC (RBC) [Mass/Vol] MCHC [Mass/volume] by Automated count 32.5-35.6 [facility] MCV Auto (RBC) [Entitic vol] Ordered By: Talib Faustin on 08-16-2024 MCV (RBC) [Entitic vol] MCV [Entitic volume] by Automated count 83.5-101 [facility] Monocytes Auto (Bld) [#/Vol] Ordered By: rick Faustin on 08-16-2024 Monocytes (Bld) [#/Vol] Automated blood monocyte count High 0.0-0.8 [facility] Monocytes/100 WBC Auto (Bld) Ordered By: Talib Faustin on 08-16-2024 Monocytes/100 WBC (Bld) Automated monocyte % . [facility] Neutrophils Auto (Bld) [#/Vo l]Ordered By: Talib Faustin on 08-16-2024 Neutrophils (Bld) [#/Vol] Neutrophils [#/volume] in Blood by Automated count 1.8-7.7 [facility] Neutrophils/100 WBC Auto (Bl d)Ordered By: rick Faustin on 08-16-2024 Neutrophils/100 WBC (Bld) Automated neutrophil % . [facility] No Panel InformationOrdered By: Talib Faustin on 08-16-2024 Estimated GFR (CKD-EPI) > 60.0 mL/Min [facility] Creatinine Clearance (Chem 59.79 [facility] Nucleated erythrocytes [Pres ence] in Blood by Automated countOrdered By: Talib Faustin on 08-16-2024 Nucleated RBC Auto Ql (Bld) Nucleated erythrocytes [Presence] in Blood by Automated count 0-0.5 [facility] Platelet mean volume Auto (B ld) [Entitic vol]Ordered By: Talib Faustin on 08-16-2024 Platelet mean volume (Bld) [Entitic vol] Platelet mean volume [Entitic volume] in Blood by Automated count 6.6-10.1 [facility] Platelets Auto (Bld) [#/Vol] Ordered By: Talib Faustin on 08-16-2024 Platelets (Bld) [#/Vol] Platelets [#/volume] in Blood by Automated count 150-450 [facility] Potassium [Moles/volume] in Serum or PlasmaOrdered By: Talib Faustin on 08-16-2024 Potassium [Moles/Vol] Potassium [Moles/v olume] in Serum or Plasma 3.5-5.1 [facility] Protein [Mass/volume] in Ser um or PlasmaOrdered By: Talib Faustin on 08-16-2024 Protein [Mass/Vol] Protein [Mass/volume ] in Serum or Plasma Low 6.4-8.9 [facility] RBC Auto (Bld) [#/Vol]Ordere d By: Talib Faustin on 08-16-2024 RBC (Bld) [#/Vol] Erythrocytes [#/volu me] in Blood by Automated count Low 3.90-5.60 [facility] Serum or plasma albumin/glob ulin mass ratioOrdered By: Talib Faustin on 08-16-2024 Albumin/Globulin [Mass ratio] Serum or plasma albumin/globulin mass ratio [facility] Serum or plasma anion gap de terminationOrdered By: Talib Faustin on 08-16-2024 Anion gap [Moles/Vol] Serum or plasma an ion gap determination 6.0-15.0 [facility] Sodium [Moles/volume] in Ser um or PlasmaOrdered By: Talib Faustin on 08-16-2024 Sodium [Moles/Vol] Sodium [Moles/volume ] in Serum or Plasma 136-145 [facility] Urea nitrogen [Mass/volume] in Serum or PlasmaOrdered By: Talib Faustin on 08-16-2024 Urea nitrogen [Mass/Vol] Urea nitrogen [Mass/volume] in Serum or Plasma 7- [facility] WBC Auto (Bld) [#/Vol]Ordere d By: Talib Faustin on 08-16-2024 WBC (Bld) [#/Vol] Leukocytes [#/volume ] in Blood by Automated count 4.1-10.5 [facility] Complete Blood Count Auto Di ffon 08-09-2024 Basophils (Bld) [#/Vol] 0.0 10*3/uL Normal 0.0-0.2 The [facility] Comment on above: Result Comment: PERF ORMED BY: [place] [address] PATHOLOGIST [employer] HEBER SHANNON M.D. Performed By: #### C MP, CBC #### [address] Basophils/100 WBC (Bld) 0.4 % Normal . [facility] Comment on above: Performed By: #### C MP, CBC #### [address] Eosinophils (Bld) [#/Vol] 0.0 10*3/uL Normal 0.0-0.45 [facility] Comment on above: Performed By: #### C MP, CBC #### [address] Eosinophils/100 WBC (Bld) 0.5 % Normal . [facility] Comment on above: Performed By: #### C MP, CBC #### [address] Erythrocyte distribution width (RBC) [Ratio] 14.7 % Normal 12.0-14.8 [facility] Comment on above: Performed By: #### C MP, CBC #### [address] Hematocrit (Bld) [Volume fraction] 36.9 % Low 38.8-50.0 [facility] Comment on above: Performed By: #### C MP, CBC #### [address] Hemoglobin (Bld) [Mass/Vol] 12.4 g/dL Low 13.0-17.0 [facility] Comment on above: Performed By: #### C MP, CBC #### [address] Lymphocytes (Bld) [#/Vol] 0.6 10*3/uL Low 1.00-4.8 [facility] Comment on above: Performed By: #### C MP, CBC #### [address] Lymphocytes/100 WBC (Bld) 7.4 % Normal . [facility] Comment on above: Performed By: #### C MP, CBC #### [address] MCH (RBC) [Entitic mass] 30.9 pg Normal 27.5-35.2 [facility] Comment on above: Performed By: #### C MP, CBC #### [address] MCV (RBC) [Entitic vol] 92.2 fL Normal 83.5-101 [facility] Comment on above: Performed By: #### C MP, CBC #### [address] Mean Corpuscular HGB Conc 33.6 g/dL Normal 32.5-35.6 [facility] Comment on above: Performed By: #### C MP, CBC #### [address] Monocytes (Bld) [#/Vol] 0.8 10*3/uL Normal 0.0-0.8 [facility] Comment on above: Performed By: #### C MP, CBC #### [address] Monocytes/100 WBC (Bld) 8.9 % Normal . [facility] Comment on above: Performed By: #### C MP, CBC #### [facility] [address] [place] [address] [place] Neutrophils (Bld) [#/Vol] 7.2 10*3/uL Normal 1.8-7.7 [facility] Comment on above: Performed By: #### C MP, CBC #### [facility] [address] Neutrophils/100 WBC (Bld) 82.8 % Normal . [facility] Comment on above: Performed By: #### C MP, CBC #### [facility] [address] NRBC% 0.1 /100{WBC} Normal 0-0.5 The [facility] Comment on above: Performed By: #### C MP, CBC #### [facility] [address] Platelet mean volume (Bld) [Entitic vol] 7.9 fL Normal 6.6-10.1 The [facility] Comment on above: Performed By: #### C MP, CBC #### [facility] [address] [place] [address] [place] Platelets (Bld) [#/Vol] 245 10*3/uL Normal 150-450 [facility] Comment on above: Performed By: #### C MP, CBC #### [facility] [address] [place] [address] [place] RBC (Bld) [#/Vol] 4.00 10*6/uL Normal 3.90-5.60 The [facility] Comment on above: Performed By: #### C MP, CBC #### [facility] [address] [place] [id number] [place] WBC (Bld) [#/Vol] 8.7 10*3/uL Normal 4.1-10.5 The [facility] Comment on above: Performed By: #### C MP, CBC #### [facility] [address] Comprehensive Metabolic Pane obdulio 08-09-2024 Albumin [Mass/Vol] 3.7 g/dL Normal 3.5-5.7 The [facility] Comment on above: Performed By: #### C MP, CBC #### [address] Albumin/Globulin [Mass ratio] 1.2 {ratio} Normal [facility] Comment on above: Performed By: #### C MP, CBC #### [address] ALP [Catalytic activity/Vol] 69 U/L Normal 34-104 [facility] Comment on above: Performed By: #### C MP, CBC #### [address] ALT [Catalytic activity/Vol] 18 U/L Normal 7-52 [facility] Comment on above: Performed By: #### C MP, CBC #### [address] Anion gap [Moles/Vol] 10.4 mmol/L Normal 6.0-15.0 [facility] Comment on above: Performed By: #### C MP, CBC #### [address] AST [Catalytic activity/Vol] 18 U/L Normal 13-39 [facility] Comment on above: Performed By: #### C MP, CBC #### [address] Bilirubin [Mass/Vol] 0.4 mg/dL Normal 0.3-1.0 [facility] Comment on above: Performed By: #### C MP, CBC #### [address] Calcium [Mass/Vol] 9.4 mg/dL Normal 8.6-10.3 The [facility] Comment on above: Performed By: #### C MP, CBC #### [address] Chloride [Moles/Vol] 102 mmol/L Normal 98-107 [facility] Comment on above: Performed By: #### C MP, CBC #### [address] CO2 [Moles/Vol] 26.5 mmol/L Normal 21.0-31.0 The [facility] Comment on above: Performed By: #### C MP, CBC #### [address] Creatinine [Mass/Vol] 0.91 mg/dL Normal 0.70-1.30 [facility] Comment on above: Performed By: #### C MP, CBC #### [place] [address] [place] Creatinine Clr Calc Pharmacy 54.53 Normal [facility] Comment on above: Result Comment: PERF ORMED BY: [place] [address] PATHOLOGIST [employer] HEBER SHANNON M.D. Performed By: #### C MP, CBC #### [place] [address] [place] GFR/1.73 sq M.predicted MDRD (S/P/Bld) [Vol rate/Area] mL/min/{1.73_m2} Normal [facility] Comment on above: Performed By: #### C MP, CBC #### [address] Globulin (S) [Mass/Vol] 3.0 g/dL Normal [facility] Comment on above: Performed By: #### C MP, CBC #### [address] Glucose [Mass/Vol] 163 mg/dL High 70-100 The [facility] Comment on above: Result Comment: [place] Glucose Reference Range is dependent on time and content of last meal. Glucose of more than 200 mg/dL in a nonstressed, ambulatory subject supports the diagnosis of Diabetes Mellitus. ADA recommended reference range Performed By: #### C MP, CBC #### [place] [address] [place] Potassium [Moles/Vol] 3.9 mmol/L Normal 3.5-5.1 [facility] Comment on above: Performed By: #### C MP, CBC #### [address] Protein [Mass/Vol] 6.7 g/dL Normal 6.4-8.9 The [facility] Comment on above: Performed By: #### C MP, CBC #### [address] Sodium [Moles/Vol] 135 mmol/L Low 136-145 The [facility] Comment on above: Performed By: #### C MP, CBC #### [address] Urea nitrogen [Mass/Vol] 31 mg/dL High 7-25 [facility] Comment on above: Performed By: #### C MP, CBC #### [address] Complete Blood Count Auto Di ffon 08-02-2024 Basophils (Bld) [#/Vol] 0.1 10*3/uL Normal 0.0-0.2 [facility] Comment on above: Result Comment: PERF ORMED BY: [place] [address] PATHOLOGIST [employer] HEBER SHANNON M.D. Performed By: #### M G, SCAN CBC, CMP #### [address] Basophils/100 WBC (Bld) 1.0 % Normal . [facility] Comment on above: Performed By: #### M G, SCAN CBC, CMP #### [place] [address] [place] Eosinophils (Bld) [#/Vol] 0.0 10*3/uL Normal 0.0-0.45 [facility] Comment on above: Performed By: #### M G, SCAN CBC, CMP #### [place] [address] [place] Eosinophils/100 WBC (Bld) 0.6 % Normal . [facility] Comment on above: Performed By: #### M G, SCAN CBC, CMP #### [address] Erythrocyte distribution width (RBC) [Ratio] 14.0 % Normal 12.0-14.8 The [facility] Comment on above: Performed By: #### M G, SCAN CBC, CMP #### [address] Hematocrit (Bld) [Volume fraction] 35.5 % Low 38.8-50.0 The [facility] Comment on above: Performed By: #### M G, SCAN CBC, CMP #### [address] Hemoglobin (Bld) [Mass/Vol] 12.1 g/dL Low 13.0-17.0 The [facility] Comment on above: Performed By: #### M G, SCAN CBC, CMP #### [address] Lymphocytes (Bld) [#/Vol] 0.6 10*3/uL Low 1.00-4.8 The [facility] Comment on above: Performed By: #### M G, SCAN CBC, CMP #### [address] Lymphocytes/100 WBC (Bld) 10.3 % Normal . [facility] Comment on above: Performed By: #### M G, SCAN CBC, CMP #### [address] MCH (RBC) [Entitic mass] 31.4 pg Normal 27.5-35.2 The [facility] Comment on above: Performed By: #### M G, SCAN CBC, CMP #### [address] MCV (RBC) [Entitic vol] 92.2 fL Normal 83.5-101 The [facility] Comment on above: Performed By: #### M G, SCAN CBC, CMP #### [place] [address] Mean Corpuscular HGB Conc 34.0 g/dL Normal 32.5-35.6 [facility] Comment on above: Performed By: #### M G, SCAN CBC, CMP #### [address] Monocytes (Bld) [#/Vol] 0.9 10*3/uL High 0.0-0.8 [facility] Comment on above: Performed By: #### M G, SCAN CBC, CMP #### [address] Monocytes/100 WBC (Bld) 14.8 % Normal . [facility] Comment on above: Performed By: #### M G, SCAN CBC, CMP #### [address] Neutrophils (Bld) [#/Vol] 4.5 10*3/uL Normal 1.8-7.7 [facility] Comment on above: Performed By: #### M G, SCAN CBC, CMP #### [place] [address] [place] Neutrophils/100 WBC (Bld) 73.3 % Normal . [facility] Comment on above: Performed By: #### M G, SCAN CBC, CMP #### [address] NRBC% 0.1 /100{WBC} Normal 0-0.5 The [facility] Comment on above: Performed By: #### M G, SCAN CBC, CMP #### [place] [address] [place] Platelet mean volume (Bld) [Entitic vol] 7.4 fL Normal 6.6-10.1 The [facility] Comment on above: Performed By: #### M G, SCAN CBC, CMP #### [place] [address] [place] Platelets (Bld) [#/Vol] 215 10*3/uL Normal 150-450 [facility] Comment on above: Performed By: #### M G, SCAN CBC, CMP #### [facility] [address] RBC (Bld) [#/Vol] 3.85 10*6/uL Low 3.90-5.60 The [facility] Comment on above: Performed By: #### M G, SCAN CBC, CMP #### [facility] [address] WBC (Bld) [#/Vol] 6.2 10*3/uL Normal 4.1-10.5 The [facility] Comment on above: Performed By: #### M G, SCAN CBC, CMP #### [address] Comprehensive Metabolic Pane obdulio 08-02-2024 Albumin [Mass/Vol] 3.6 g/dL Normal 3.5-5.7 The [facility] Comment on above: Performed By: #### M G, SCAN CBC, CMP #### [address] Albumin/Globulin [Mass ratio] 1.3 {ratio} Normal [facility] Comment on above: Performed By: #### M G, SCAN CBC, CMP #### [address] ALP [Catalytic activity/Vol] 75 U/L Normal 34-104 [facility] Comment on above: Performed By: #### M G, SCAN CBC, CMP #### [address] ALT [Catalytic activity/Vol] 12 U/L Normal 7-52 [facility] Comment on above: Performed By: #### M G, SCAN CBC, CMP #### [address] Anion gap [Moles/Vol] 10.1 mmol/L Normal 6.0-15.0 Th e [facility] Comment on above: Performed By: #### M G, SCAN CBC, CMP #### [facility] [facility] [address] [place] [address] AST [Catalytic activity/Vol] 13 U/L Normal 13-39 [facility] Comment on above: Performed By: #### M G, SCAN CBC, CMP #### [facility] [address] [place] [address] [place] Bilirubin [Mass/Vol] 0.5 mg/dL Normal 0.3-1.0 [facility] Comment on above: Performed By: #### M G, SCAN CBC, CMP #### [facility] [address] [place] [address] [place] Calcium [Mass/Vol] 8.5 mg/dL Low 8.6-10.3 The Replaced by [facility] Comment on above: Performed By: #### M G, SCAN CBC, CMP #### [facility] [address] [place] [address] [place] Chloride [Moles/Vol] 103 mmol/L Normal 98-107 [facility] Comment on above: Performed By: #### M G, SCAN CBC, CMP #### [place] [address] [place] CO2 [Moles/Vol] 27.1 mmol/L Normal 21.0-31.0 The [facility] Comment on above: Performed By: #### M G, SCAN CBC, CMP #### [place] [address] [place] Creatinine [Mass/Vol] 1.03 mg/dL Normal 0.70-1.30 [facility] Comment on above: Performed By: #### M G, SCAN CBC, CMP #### [place] [address] [place] Creatinine Clr Calc Pharmacy 48.18 Normal [facility] Comment on above: Result Comment: PERF ORMED BY: [place] [address] PATHOLOGIST [employer] HEBER SHANNON M.D. Performed By: #### M G, SCAN CBC, CMP #### [place] [address] [place] GFR/1.73 sq M.predicted MDRD (S/P/Bld) [Vol rate/Area] mL/min/{1.73_m2} Normal [facility] Comment on above: Performed By: #### M G, SCAN CBC, CMP #### [facility] [address] [place] [address] [place] Globulin (S) [Mass/Vol] 2.7 g/dL Normal [facility] Comment on above: Performed By: #### M G, SCAN CBC, CMP #### [facility] [address] [place] [address] [place] Glucose [Mass/Vol] 120 mg/dL High 70-100 The [facility] Comment on above: Result Comment: [facility] [place] Glucose Reference Range is dependent on time and content of last meal. Glucose of more than 200 mg/dL in a nonstressed, ambulatory subject supports the diagnosis of Diabetes Mellitus. ADA recommended reference range Performed By: #### M G, SCAN CBC, CMP #### [address] Potassium [Moles/Vol] 4.2 mmol/L Normal 3.5-5.1 [facility] Comment on above: Performed By: #### M G, SCAN CBC, CMP #### [facility] [address] [place] [address] [place] Protein [Mass/Vol] 6.3 g/dL Low 6.4-8.9 The [facility]placed [facility] Comment on above: Performed By: #### M G, SCAN CBC, CMP #### [place] [address] [place] Sodium [Moles/Vol] 136 mmol/L Normal 136-145 The [facility] Comment on above: Performed By: #### M G, SCAN CBC, CMP #### [facility] [address] [place] [address] [place] Urea nitrogen [Mass/Vol] 35 mg/dL High 7-25 [facility] Comment on above: Performed By: #### M G, SCAN CBC, CMP #### [facility] [address] Alanine aminotransferase [En zymatic activity/volume] in Serum or PlasmaOrdered By: Talib Faustin on 07-26-2024 ALT [Catalytic activity/Vol] Alanine aminotransferase [Enzymatic activity/volume] in Serum or Plasma 7-52 [facility] Albumin [Mass/volume] in Ser um or Plasma by Bromocresol green (BCG) dye binding methoOrdered By: Talib Faustin on 07-26-2024 Albumin BCG dye [Mass/Vol] Albumin [Mass/volume] in Serum or Plasma by Bromocresol green (BCG) dye binding metho 3.5-5.7 [facility] Alkaline phosphatase [Enzyma tic activity/volume] in Serum or PlasmaOrdered By: Talib Faustin on 07-26-2024 ALP [Catalytic activity/Vol] Alkaline phosphatase [Enzymatic activity/volume] in Serum or Plasma 34-104 [facility] Aspartate aminotransferase [ Enzymatic activity/volume] in Serum or PlasmaOrdered By: Talib Faustin on 07-26-2024 AST [Catalytic activity/Vol] Aspartate aminotransferase [Enzymatic activity/volume] in Serum or Plasma 13-39 [facility] Basophils Auto (Bld) [#/Vol] Ordered By: Talib Faustin on 07-26-2024 Basophils (Bld) [#/Vol] Automated basophil count 0.0-0.2 [facility] Basophils/100 WBC Auto (Bld) Ordered By: Talib Faustin on 07-26-2024 Basophils/100 WBC (Bld) Automated basophil % . [facility] Bilirubin.total [Mass/volume ] in Serum or PlasmaOrdered By: Talib Faustin on 07-26-2024 Bilirubin [Mass/Vol] Bilirubin.total [Mass/volume] in Serum or Plasma 0.3-1.0 [facility] Calcium [Mass/volume] in Ser um or PlasmaOrdered By: Talib Faustin on 07-26-2024 Calcium [Mass/Vol] Calcium [Mass/volume ] in Serum or Plasma 8.6-10.3 [facility] Carbon dioxide, total [Moles /volume] in Serum or PlasmaOrdered By: Talib Hargrove on 07-26-2024 CO2 [Moles/Vol] Carbon dioxide, tota l [Moles/volume] in Serum or Plasma 21.0-31.0 [facility] Chloride [Moles/volume] in S stephanie or PlasmaOrdered By: Talib Faustin on 07-26-2024 Chloride [Moles/Vol] Chloride [Moles/vol ume] in Serum or Plasma 98-107 [facility] Complete Blood Count Auto Di ffon 07-26-2024 Basophils (Bld) [#/Vol] 0.1 10*3/uL Normal 0.0-0.2 [facility] Comment on above: Result Comment: PERF ORMED BY: [place] [address] PATHOLOGIST [employer] HEBER SHANNON M.D. Performed By: #### E SR #### [address] Basophils/100 WBC (Bld) 1.0 % Normal . [facility] Comment on above: Performed By: #### E SR #### [address] Eosinophils (Bld) [#/Vol] 0.1 10*3/uL Normal 0.0-0.45 [facility] Comment on above: Performed By: #### E SR #### [address] Eosinophils/100 WBC (Bld) 1.4 % Normal . [facility] Comment on above: Performed By: #### E SR #### [address] Erythrocyte distribution width (RBC) [Ratio] 13.6 % Normal 12.0-14.8 [facility] Comment on above: Performed By: #### E SR #### [address] Hematocrit (Bld) [Volume fraction] 35.4 % Low 38.8-50.0 [facility] Comment on above: Performed By: #### E SR #### [address] Hemoglobin (Bld) [Mass/Vol] 12.0 g/dL Low 13.0-17.0 [facility] Comment on above: Performed By: #### E SR #### [address] Lymphocytes (Bld) [#/Vol] 0.9 10*3/uL Low 1.00-4.8 [facility] Comment on above: Performed By: #### E SR #### [address] Lymphocytes/100 WBC (Bld) 13.0 % Normal . [facility] Comment on above: Performed By: #### E SR #### [address] MCH (RBC) [Entitic mass] 31.1 pg Normal 27.5-35.2 [facility] Comment on above: Performed By: #### E SR #### [address] MCV (RBC) [Entitic vol] 91.5 fL Normal 83.5-101 [facility] Comment on above: Performed By: #### E SR #### [address] Mean Corpuscular HGB Conc 34.0 g/dL Normal 32.5-35.6 [facility] Comment on above: Performed By: #### E SR #### [address] Monocytes (Bld) [#/Vol] 0.7 10*3/uL Normal 0.0-0.8 [facility] Comment on above: Performed By: #### E SR #### [place] [address] [place] Monocytes/100 WBC (Bld) 9.8 % Normal . [facility] Comment on above: Performed By: #### E SR #### [address] Neutrophils (Bld) [#/Vol] 5.1 10*3/uL Normal 1.8-7.7 [facility] Comment on above: Performed By: #### E SR #### [facility] [address] Neutrophils/100 WBC (Bld) 74.8 % Normal . [facility] Comment on above: Performed By: #### E SR #### [facility] [address] NRBC% 0.1 /100{WBC} Normal 0-0.5 The [facility] Comment on above: Performed By: #### E SR #### [address] Platelet mean volume (Bld) [Entitic vol] 7.4 fL Normal 6.6-10.1 The [facility] Comment on above: Performed By: #### E SR #### [address] Platelets (Bld) [#/Vol] 217 10*3/uL Normal 150-450 [facility] Comment on above: Performed By: #### E SR #### [address] RBC (Bld) [#/Vol] 3.87 10*6/uL Low 3.90-5.60 The [facility] Comment on above: Performed By: #### E SR #### [address] WBC (Bld) [#/Vol] 6.9 10*3/uL Normal 4.1-10.5 [facility] Comment on above: Performed By: #### E SR #### [address] Comprehensive Metabolic Pane obdulio 07-26-2024 Albumin [Mass/Vol] 3.7 g/dL Normal 3.5-5.7 [facility] Comment on above: Performed By: #### E SR #### [address] Albumin/Globulin [Mass ratio] 1.3 {ratio} Normal [facility] Comment on above: Performed By: #### E SR #### [address] ALP [Catalytic activity/Vol] 80 U/L Normal 34-104 [facility] Comment on above: Performed By: #### E SR #### [address] ALT [Catalytic activity/Vol] 13 U/L Normal 7-52 [facility] Comment on above: Performed By: #### E SR #### [address] Anion gap [Moles/Vol] 9.4 mmol/L Normal 6.0-15.0 [facility] Comment on above: Performed By: #### E SR #### [address] AST [Catalytic activity/Vol] 14 U/L Normal 13-39 [facility] Comment on above: Performed By: #### E SR #### [address] Bilirubin [Mass/Vol] 0.5 mg/dL Normal 0.3-1.0 [facility] Comment on above: Performed By: #### E SR #### [address] Calcium [Mass/Vol] 8.9 mg/dL Normal 8.6-10.3 The [facility] Comment on above: Performed By: #### E SR #### [place] [address] [place] Chloride [Moles/Vol] 104 mmol/L Normal 98-107 [facility] Comment on above: Performed By: #### E SR #### [address] CO2 [Moles/Vol] 26.8 mmol/L Normal 21.0-31.0 The [facility] Comment on above: Performed By: #### E SR #### [address] Creatinine [Mass/Vol] 0.87 mg/dL Normal 0.70-1.30 [facility] Comment on above: Performed By: #### E SR #### [address] Creatinine Clr Calc Pharmacy 57.04 Normal [facility] Comment on above: Result Comment: PERF ORMED BY: [place] [address] PATHOLOGIST [employer] HEBER SHANNON M.D. Performed By: #### E SR #### [address] GFR/1.73 sq M.predicted MDRD (S/P/Bld) [Vol rate/Area] mL/min/{1.73_m2} Normal [facility] Comment on above: Performed By: #### E SR #### [address] Globulin (S) [Mass/Vol] 2.9 g/dL Normal [facility] Comment on above: Performed By: #### E SR #### [address] Glucose [Mass/Vol] 107 mg/dL High 70-100 The [facility]placed [facility] Comment on above: Result Comment: [place] Glucose Reference Range is dependent on time and content of last meal. Glucose of more than 200 mg/dL in a nonstressed, ambulatory subject supports the diagnosis of Diabetes Mellitus. ADA recommended reference range Performed By: #### E SR #### [address] Potassium [Moles/Vol] 4.2 mmol/L Normal 3.5-5.1 [facility] Comment on above: Performed By: #### E SR #### [address] Protein [Mass/Vol] 6.6 g/dL Normal 6.4-8.9 The [facility]placed [facility] Comment on above: Performed By: #### E SR #### [address] Sodium [Moles/Vol] 136 mmol/L Normal 136-145 The [facility] Comment on above: Performed By: #### E SR #### [facility] [address] [place] [address] [place] Urea nitrogen [Mass/Vol] 30 mg/dL High 7-25 [facility] Comment on above: Performed By: #### E SR #### [facility] [address] Creatinine [Mass/volume] in Serum or PlasmaOrdered By: Talib Faustin on 07-26-2024 Creatinine [Mass/Vol] Creatinine [Mass/v olume] in Serum or Plasma 0.70-1.30 [facility] Eosinophils Auto (Bld) [#/Vo l]Ordered By: Talib Faustin on 07-26-2024 Eosinophils (Bld) [#/Vol] Automated eosinophil count 0.0-0.45 [facility] Eosinophils/100 WBC Auto (Bl d)Ordered By: rick Faustin on 07-26-2024 Eosinophils/100 WBC (Bld) Automated eosinophil % . [facility] Erythrocyte distribution wid th Auto (RBC) [Ratio]Ordered By: rick Faustin on 07-26-2024 Erythrocyte distribution width (RBC) [Ratio] Erythrocyte distribution width [Ratio] by Automated count 12.0-14.8 [facility] Globulin Calc (S) [Mass/Vol] Ordered By: rick Faustin on 07-26-2024 Globulin (S) [Mass/Vol] Serum globulin measurement by calculation (mass/volume) [facility] Glucose [Mass/volume] in Ser um or PlasmaOrdered By: rick Faustin on 07-26-2024 Glucose [Mass/Vol] Glucose [Mass/volume ] in Serum or Plasma High 70-100 [facility] Comment on above: ADA recommended refe rence rangeRandom Glucose Reference Range is dependent on time and content of last meal. Glucose of more than 200 mg/dL in a nonstressed, ambulatory subject supports the diagnosis of Diabetes Mellitus. Hematocrit Auto (Bld) [Volum e fraction]Ordered By: Talib Faustin on 07-26-2024 Hematocrit (Bld) [Volume fraction] Hematocrit [Volume Fraction] of Blood by Automated count Low 38.8-50.0 [facility] Hemoglobin [Mass/volume] in BloodOrdered By: Talib Faustin on 07-26-2024 Hemoglobin (Bld) [Mass/Vol] Hemoglobin [Mass/volume] in Blood Low 13.0-17.0 [facility] Leukocytes [#/volume] correc suzy for nucleated erythrocytes in Blood by Automated counOrdered By: Talib Faustin on 07-26-2024 WBC corrected for nucl RBC Auto (Bld) [#/Vol] Leukocytes [#/volume] corrected for nucleated erythrocytes in Blood by Automated coun 4.1-10.5 [facility] Lymphocytes Auto (Bld) [#/Vo l]Ordered By: Talib Faustin on 07-26-2024 Lymphocytes (Bld) [#/Vol] Lymphocytes [#/volume] in Blood by Automated count Low 1.00-4.8 [facility] Lymphocytes/100 WBC Auto (Bl d)Ordered By: Talib Faustin on 07-26-2024 Lymphocytes/100 WBC (Bld) Lymphocytes/100 leukocytes in Blood by Automated count . [facility] MCH Auto (RBC) [Entitic mass ]Ordered By: Talib Faustin on 07-26-2024 MCH (RBC) [Entitic mass] MCH [Entitic mass] by Automated count 27.5-35.2 [facility] MCHC Auto (RBC) [Mass/Vol]Or dered By: Talib Faustin on 07-26-2024 MCHC (RBC) [Mass/Vol] MCHC [Mass/volume] by Automated count 32.5-35.6 [facility] MCV Auto (RBC) [Entitic vol] Ordered By: Talib Faustin on 07-26-2024 MCV (RBC) [Entitic vol] MCV [Entitic volume] by Automated count 83.5-101 [facility] Monocytes Auto (Bld) [#/Vol] Ordered By: Talib Faustin on 07-26-2024 Monocytes (Bld) [#/Vol] Automated blood monocyte count 0.0-0.8 [facility] Monocytes/100 WBC Auto (Bld) Ordered By: Talib Faustin on 07-26-2024 Monocytes/100 WBC (Bld) Automated monocyte % . [facility] Neutrophils Auto (Bld) [#/Vo l]Ordered By: Talib Faustin on 07-26-2024 Neutrophils (Bld) [#/Vol] Neutrophils [#/volume] in Blood by Automated count 1.8-7.7 [facility] Neutrophils/100 WBC Auto (Bl d)Ordered By: rick Faustin on 07-26-2024 Neutrophils/100 WBC (Bld) Automated neutrophil % . [facility] No Panel InformationOrdered By: Talib Faustin on 07-26-2024 Estimated GFR (CKD-EPI) > 60.0 mL/Min [facility] Creatinine Clearance (Chem 57.04 [facility] Nucleated erythrocytes [Pres ence] in Blood by Automated countOrdered By: Talib Faustin on 07-26-2024 Nucleated RBC Auto Ql (Bld) Nucleated erythrocytes [Presence] in Blood by Automated count 0-0.5 [facility] Platelet mean volume Auto (B ld) [Entitic vol]Ordered By: Talib Faustin on 07-26-2024 Platelet mean volume (Bld) [Entitic vol] Platelet mean volume [Entitic volume] in Blood by Automated count 6.6-10.1 [facility] Platelets Auto (Bld) [#/Vol] Ordered By: Talib Faustin on 07-26-2024 Platelets (Bld) [#/Vol] Platelets [#/volume] in Blood by Automated count 150-450 [facility] Potassium [Moles/volume] in Serum or PlasmaOrdered By: rick Faustin on 07-26-2024 Potassium [Moles/Vol] Potassium [Moles/v olume] in Serum or Plasma 3.5-5.1 [facility] Protein [Mass/volume] in Ser um or PlasmaOrdered By: Talib Faustin on 07-26-2024 Protein [Mass/Vol] Protein [Mass/volume ] in Serum or Plasma 6.4-8.9 [facility] RBC Auto (Bld) [#/Vol]Ordere d By: Talib Faustin on 07-26-2024 RBC (Bld) [#/Vol] Erythrocytes [#/volu me] in Blood by Automated count Low 3.90-5.60 [facility] Serum or plasma albumin/glob ulin mass ratioOrdered By: Talib Faustin on 07-26-2024 Albumin/Globulin [Mass ratio] Serum or plasma albumin/globulin mass ratio [facility] Serum or plasma anion gap de terminationOrdered By: rick Faustin on 07-26-2024 Anion gap [Moles/Vol] Serum or plasma an ion gap determination 6.0-15.0 [facility] Sodium [Moles/volume] in Ser um or PlasmaOrdered By: rick Faustin on 07-26-2024 Sodium [Moles/Vol] Sodium [Moles/volume ] in Serum or Plasma 136-145 [facility] Urea nitrogen [Mass/volume] in Serum or PlasmaOrdered By: Talib Faustin on 07-26-2024 Urea nitrogen [Mass/Vol] Urea nitrogen [Mass/volume] in Serum or Plasma High 7-25 [facility] WBC Auto (Bld) [#/Vol]Ordere d By: Talib Faustin on 07-26-2024 WBC (Bld) [#/Vol] Leukocytes [#/volume ] in Blood by Automated count 4.1-10.5 [facility] Complete Blood Count Auto Di ffon 07-19-2024 Basophils (Bld) [#/Vol] 0.0 10*3/uL Normal 0.0-0.2 [facility] Comment on above: Result Comment: PERF ORMED BY: [place] [address] PATHOLOGIST [employer] HEBER SHANNON M.D. Performed By: #### Adrian G, CMP, CBC #### [facility] [address] [place] [address] [place] Performed By: #### M G, SCAN CBC, CMP #### [facility] [address] [place] [address] [place] Basophils/100 WBC (Bld) 0.5 % Normal . [facility] Comment on above: Performed By: #### M G, CMP, CBC #### [address] Performed By: #### M G, SCAN CBC, CMP #### [address] Eosinophils (Bld) [#/Vol] 0.1 10*3/uL Normal 0.0-0.45 [facility] Comment on above: Performed By: #### M G, CMP, CBC #### [address] Performed By: #### M G, SCAN CBC, CMP #### [address] Eosinophils/100 WBC (Bld) 1.4 % Normal . [facility] Comment on above: Performed By: #### M G, CMP, CBC #### [address] Performed By: #### M G, SCAN CBC, CMP #### [address] Erythrocyte distribution width (RBC) [Ratio] 13.4 % Normal 12.0-14.8 [facility] Comment on above: Performed By: #### M G, CMP, CBC #### [address] Performed By: #### M G, SCAN CBC, CMP #### [address] Hematocrit (Bld) [Volume fraction] 35.7 % Low 38.8-50.0 [facility] Comment on above: Performed By: #### M G, CMP, CBC #### [address] Performed By: #### M G, SCAN CBC, CMP #### [address] Hemoglobin (Bld) [Mass/Vol] 12.0 g/dL Low 13.0-17.0 [facility] Comment on above: Performed By: #### M G, CMP, CBC #### [address] Performed By: #### M G, SCAN CBC, CMP #### [address] Lymphocytes (Bld) [#/Vol] 1.3 10*3/uL Normal 1.00-4.8 [facility] Comment on above: Performed By: #### M G, CMP, CBC #### [address] Performed By: #### M G, SCAN CBC, CMP #### [address] Lymphocytes/100 WBC (Bld) 11.6 % Normal . [facility] Comment on above: Performed By: #### M G, CMP, CBC #### [address] Performed By: #### M G, SCAN CBC, CMP #### [address] MCH (RBC) [Entitic mass] 30.7 pg Normal 27.5-35.2 [facility] Comment on above: Performed By: #### M G, CMP, CBC #### [address] Performed By: #### M G, SCAN CBC, CMP #### [address] MCV (RBC) [Entitic vol] 91.3 fL Normal 83.5-101 [facility] Comment on above: Performed By: #### M G, CMP, CBC #### [address] Performed By: #### M G, SCAN CBC, CMP #### [address] Mean Corpuscular HGB Conc 33.7 g/dL Normal 32.5-35.6 [facility] Comment on above: Performed By: #### M G, CMP, CBC #### [address] Performed By: #### M G, SCAN CBC, CMP #### [address] Monocytes (Bld) [#/Vol] 0.8 10*3/uL Normal 0.0-0.8 [facility] Comment on above: Performed By: #### M G, CMP, CBC #### [address] Performed By: #### M G, SCAN CBC, CMP #### [address] Monocytes/100 WBC (Bld) 7.4 % Normal . [facility] Comment on above: Performed By: #### M G, CMP, CBC #### [address] Performed By: #### M G, SCAN CBC, CMP #### [address] Neutrophils (Bld) [#/Vol] 8.7 10*3/uL High 1.8-7.7 [facility] Comment on above: Performed By: #### M G, CMP, CBC #### [address] Performed By: #### M G, SCAN CBC, CMP #### [address] Neutrophils/100 WBC (Bld) 79.1 % Normal . [facility] Comment on above: Performed By: #### M G, CMP, CBC #### [address] Performed By: #### M G, SCAN CBC, CMP #### [address] NRBC% 0.1 /100{WBC} Normal 0-0.5 [facility] Comment on above: Performed By: #### M G, CMP, CBC #### [address] Performed By: #### M G, SCAN CBC, CMP #### [address] Platelet mean volume (Bld) [Entitic vol] 7.9 fL Normal 6.6-10.1 [facility] Comment on above: Performed By: #### M G, CMP, CBC #### [address] Performed By: #### M G, SCAN CBC, CMP #### [address] Platelets (Bld) [#/Vol] 179 10*3/uL Normal 150-450 [facility] Comment on above: Performed By: #### M G, CMP, CBC #### [address] Performed By: #### M G, SCAN CBC, CMP #### [address] RBC (Bld) [#/Vol] 3.91 10*6/uL Normal 3.90-5.60 [facility] Comment on above: Performed By: #### M G, CMP, CBC #### [address] Performed By: #### M G, SCAN CBC, CMP #### [address] WBC (Bld) [#/Vol] 11.0 10*3/uL High 4.1-10.5 [facility] Comment on above: Performed By: #### M G, CMP, CBC #### [address] Performed By: #### M G, SCAN CBC, CMP #### [address] Comprehensive Metabolic Pane obdulio 07-19-2024 Albumin [Mass/Vol] 3.8 g/dL Normal 3.5-5.7 The [facility] Comment on above: Performed By: #### M G, CMP, CBC #### [facility] [address] [place] [address] Performed By: #### U A #### [address] Albumin/Globulin [Mass ratio] 1.5 {ratio} Normal [facility] Comment on above: Performed By: #### M G, CMP, CBC #### [address] Performed By: #### U A #### [address] ALP [Catalytic activity/Vol] 84 U/L Normal 34-104 [facility] Comment on above: Performed By: #### M G, CMP, CBC #### [facility] [address] [place] [address] Performed By: #### U A #### [address] ALT [Catalytic activity/Vol] 12 U/L Normal 7-52 [facility] Comment on above: Performed By: #### M G, CMP, CBC #### [address] Performed By: #### U A #### [address] Anion gap [Moles/Vol] 10.1 mmol/L Normal 6.0-15.0 [facility] Comment on above: Performed By: #### M G, CMP, CBC #### [facility] [address] [place] [address] Performed By: #### U A #### [address] AST [Catalytic activity/Vol] 11 U/L Low 13-39 [facility] Comment on above: Performed By: #### M G, CMP, CBC #### [address] Performed By: #### U A #### [facility] [address] [place] [address] Bilirubin [Mass/Vol] 0.6 mg/dL Normal 0.3-1.0 [facility] Comment on above: Performed By: #### M G, CMP, CBC #### [facility] [address] [place] [address] Performed By: #### U A #### [address] Calcium [Mass/Vol] 9.2 mg/dL Normal 8.6-10.3 The [facility] Comment on above: Performed By: #### Adrian Da Silva, CMP, CBC #### [address] Performed By: #### U A #### [address] Chloride [Moles/Vol] 107 mmol/L Normal 98-107 [facility] Comment on above: Performed By: #### M G, CMP, CBC #### [facility] [address] [place] [address] Performed By: #### U A #### [address] CO2 [Moles/Vol] 25.1 mmol/L Normal 21.0-31.0 The [facility] Comment on above: Performed By: #### M G, CMP, CBC #### [facility] [address] [place] [address] Performed By: #### U A #### [address] Creatinine [Mass/Vol] 0.95 mg/dL Normal 0.70-1.30 [facility] Comment on above: Performed By: #### M G, CMP, CBC #### [facility] [address] [place] [address] Performed By: #### U A #### [facility] [address] [place] [address] Creatinine Clr Calc Pharmacy 56.56 Normal [facility] Comment on above: Performed By: #### M G, CMP, CBC #### [address] Performed By: #### U A #### [address] GFR/1.73 sq M.predicted MDRD (S/P/Bld) [Vol rate/Area] mL/min/{1.73_m2} Normal [facility] Comment on above: Performed By: #### M G, CMP, CBC #### [address] Performed By: #### U A #### [address] Globulin (S) [Mass/Vol] 2.6 g/dL Normal [facility] Comment on above: Performed By: #### M G, CMP, CBC #### [address] Performed By: #### U A #### [address] Glucose [Mass/Vol] 115 mg/dL High 70-100 The [facility] Comment on above: Result Comment: [place] Glucose Reference Range is dependent on time and content of last meal. Glucose of more than 200 mg/dL in a nonstressed, ambulatory subject supports the diagnosis of Diabetes Mellitus. ADA recommended reference range Performed By: #### M G, CMP, CBC #### [address] Performed By: #### U A #### [address] Potassium [Moles/Vol] 4.2 mmol/L Normal 3.5-5.1 [facility] Comment on above: Performed By: #### M G, CMP, CBC #### [address] Performed By: #### U A #### [address] Protein [Mass/Vol] 6.4 g/dL Normal 6.4-8.9 The [facility] Comment on above: Performed By: #### M G, CMP, CBC #### [address] Performed By: #### U A #### [address] Sodium [Moles/Vol] 138 mmol/L Normal 136-145 The [facility] Comment on above: Performed By: #### M G, CMP, CBC #### [facility] [address] [place] [address] Performed By: #### U A #### [address] Urea nitrogen [Mass/Vol] 30 mg/dL High 7-25 [facility] Comment on above: Performed By: #### M G, CMP, CBC #### [facility] [address] [place] [address] Performed By: #### U A #### [address] Magnesiumon 07-19-2024 Magnesium [Mass/Vol] 1.8 mg/dL Low 1.9-2.7 [facility] Comment on above: Result Comment: PERF ORMED BY: [place] [address] PATHOLOGIST [employer] HEBER SHANNON M.D. Performed By: #### M G, CMP, CBC #### [facility] [address] [place] [address] Performed By: #### U A #### [address] Magnesium [Mass/volume] in S stephanie or PlasmaOrdered By: Talib Faustin on 07-19-2024 Magnesium [Mass/Vol] Magnesium [Mass/vol ume] in Serum or Plasma Low 1.9-2.7 [facility] Office Visiton 07-19-2024 Follow-up visit [id number] Yaritza Bennett magy P 1940 M Date Provider Department Center 07/19/2024 BOY SON Nicolette Hos Family History Problem Relation Age of Onset Coronary artery disease Mother Kidney disease Mother Heart failure Mother Family Status - Relation Status Age at Mother Level of Service:74446 ND POSTOP FOLLOW UP VISIT RELATED TO ORIGINAL PX Normal [facility] GLUCOSE POCT GLUCOMETERSon 0 07-17-2024 COMMEMT1 Glu2: Cleaned Meter [facility] [place] Glucose [Mass/Vol] 107 mg/dL [facility] Comment on above: Random Glucose Refer ence Range is dependent on time and content of last meal. Glucose of more than 200 mg/dL in a nonstressed, ambulatory subject supports the diagnosis of Diabetes Mellitus. [facility] Glucose Glucometer (BldC) [M ass/Vol]Ordered By: Matteo Melo on 07-17-2024 Glucose [Mass/Vol] Capillary blood gluc ose measurement by glucometer (mass/volume) [facility] Comment on above: Random Glucose Refer ence Range is dependent on time and content of last meal. Glucose of more than 200 mg/dL in a nonstressed, ambulatory subject supports the diagnosis of Diabetes Mellitus. Glucose Poct Glucometerson 0 07-17-2024 Commemt1 Glu2: Cleaned Meter Normal [facility] Comment on above: Result Comment: PERF ORMED BY: [place] [address] PATHOLOGIST [employer] HEBER SHANNON M.D. Performed By: #### G LULS #### Point of Care testing , Performed By: #### E SR #### [facility] [address] [place] [address] Glucose [Mass/Vol] 107 mg/dL Normal [facility] Comment on above: Result Comment: [place] Glucose Reference Range is dependent on time and content of last meal. Glucose of more than 200 mg/dL in a nonstressed, ambulatory subject supports the diagnosis of Diabetes Mellitus. Performed By: #### G LULS #### Point of Care testing , Performed By: #### E SR #### [place] [id number] [facility] No Panel InformationOrdered By: Matteo Melo on 07-17-2024 Bedside Glucose Comment Glu2: cleaned meter [facility] X-ray reportOrdered By: Bruno Urias on 07-17-2024 Study report [facility] [place] [address] XRay Report Signed Patient: Jeremie Bennett MR#: [id number] : 1940 Acct:[id number] Age/Sex: 83 / M ADM Date: 5 Loc: [place] Room: Type: [facility] SDC Attending Dr: Matteo Melo MD Copies to: [...] Urias Jr., D.O.07/17/2024 2:07 PM Dictation Location: [facility] Transcribed By: [facility] 07/17/24 1407 Dictated By: Mario Urias Jr, DO 07/17/24 1407 Signed By: 07/17/24 1407 [facility] XR chest 1V portableon 07-17 XR chest 1V portable [facility] [place] [id number] XRay Report Signed Patient: Jeremie Bennett MR#: [id number] : 1940 Acct:[id number] Age/Sex: 83 / M ADM Date: 07/17/24 Loc: [place] Room: Type: [facility] Attending Dr: Matteo Melo MD Copies to: [...] Urias Jr, DO 07/17/241406 Signed By: 07/17/24 140 Normal [facility] XR chest 1V portable [facility] [place] [address] XRay Report Signed Patient: Jeremie Bennett MR#: [id number] : 1940 Acct:[id number] Age/Sex: 83 / M ADM Date: 07/17/24 Loc: [place] Room: Type: [facility] Attending Dr: Matteo Melo MD [...] Mario Urias Jr, DO 07/17/241406 Signed By: 07/17/241406 Normal [facility] Alanine aminotransferase [En zymatic activity/volume] in Serum or PlasmaOrdered By: Talib Faustin on 07-12-2024 ALT [Catalytic activity/Vol] Alanine aminotransferase [Enzymatic activity/volume] in Serum or Plasma 7-52 [facility] Albumin [Mass/volume] in Ser um or Plasma by Bromocresol green (BCG) dye binding methoOrdered By: Talib Faustin on 07-12-2024 Albumin BCG dye [Mass/Vol] Albumin [Mass/volume] in Serum or Plasma by Bromocresol green (BCG) dye binding metho 3.5-5.7 [facility] Alkaline phosphatase [Enzyma tic activity/volume] in Serum or PlasmaOrdered By: Talib Faustin on 07-12-2024 ALP [Catalytic activity/Vol] Alkaline phosphatase [Enzymatic activity/volume] in Serum or Plasma 34-104 [facility] Aspartate aminotransferase [ Enzymatic activity/volume] in Serum or PlasmaOrdered By: Talib Faustin on 07-12-2024 AST [Catalytic activity/Vol] Aspartate aminotransferase [Enzymatic activity/volume] in Serum or Plasma Low 13-39 [facility] Basophils Auto (Bld) [#/Vol] Ordered By: Talib Faustin on 07-12-2024 Basophils (Bld) [#/Vol] Automated basophil count 0.0-0.2 [facility] Basophils/100 WBC Auto (Bld) Ordered By: Talib Faustin on 07-12-2024 Basophils/100 WBC (Bld) Automated basophil % . [facility] Bilirubin.total [Mass/volume ] in Serum or PlasmaOrdered By: Talib Faustin on 07-12-2024 Bilirubin [Mass/Vol] Bilirubin.total [Mass/volume] in Serum or Plasma 0.3-1.0 [facility] Calcium [Mass/volume] in Ser um or PlasmaOrdered By: Talib Faustin on 07-12-2024 Calcium [Mass/Vol] Calcium [Mass/volume ] in Serum or Plasma 8.6-10.3 [facility] Carbon dioxide, total [Moles /volume] in Serum or PlasmaOrdered By: Talib Hargrove on 07-12-2024 CO2 [Moles/Vol] Carbon dioxide, tota l [Moles/volume] in Serum or Plasma 21.0-31.0 [facility] Chloride [Moles/volume] in S stephanie or PlasmaOrdered By: Talib Faustin on 07-12-2024 Chloride [Moles/Vol] Chloride [Moles/vol ume] in Serum or Plasma 98-107 [facility] Complete Blood Count Auto Di ffon 07-12-2024 Basophils (Bld) [#/Vol] 0.0 10*3/uL Normal 0.0-0.2 [facility] Comment on above: Result Comment: PERF ORMED BY: [place] [address] PATHOLOGIST [employer] HEBER SHANNON M.D. Performed By: #### C BC, CMP, MG #### [address] Performed By: #### U A #### [address] Basophils/100 WBC (Bld) 0.3 % Normal . [facility] Comment on above: Performed By: #### C BC, CMP, MG #### [address] Performed By: #### U A #### [address] Eosinophils (Bld) [#/Vol] 0.2 10*3/uL Normal 0.0-0.45 [facility] Comment on above: Performed By: #### C BC, CMP, MG #### [address] Performed By: #### U A #### [address] Eosinophils/100 WBC (Bld) 1.7 % Normal . [facility] Comment on above: Performed By: #### C BC, CMP, MG #### [address] Performed By: #### U A #### [address] Erythrocyte distribution width (RBC) [Ratio] 13.7 % Normal 12.0-14.8 [facility] Comment on above: Performed By: #### C BC, CMP, MG #### [address] Performed By: #### U A #### [address] Hematocrit (Bld) [Volume fraction] 38.0 % Low 38.8-50.0 [facility] Comment on above: Performed By: #### C BC, CMP, MG #### [address] Performed By: #### U A #### [address] Hemoglobin (Bld) [Mass/Vol] 12.6 g/dL Low 13.0-17.0 [facility] Comment on above: Performed By: #### C BC, CMP, MG #### [address] Performed By: #### U A #### [address] Lymphocytes (Bld) [#/Vol] 2.0 10*3/uL Normal 1.00-4.8 [facility] Comment on above: Performed By: #### C BC, CMP, MG #### [address] Performed By: #### U A #### [address] Lymphocytes/100 WBC (Bld) 19.2 % Normal . [facility] Comment on above: Performed By: #### C BC, CMP, MG #### [address] Performed By: #### U A #### [address] MCH (RBC) [Entitic mass] 30.7 pg Normal 27.5-35.2 [facility] Comment on above: Performed By: #### C BC, CMP, MG #### [address] Performed By: #### U A #### [address] MCV (RBC) [Entitic vol] 92.2 fL Normal 83.5-101 [facility] Comment on above: Performed By: #### C BC, CMP, MG #### [address] Performed By: #### U A #### [address] Mean Corpuscular HGB Conc 33.3 g/dL Normal 32.5-35.6 [facility] Comment on above: Performed By: #### C BC, CMP, MG #### [address] Performed By: #### U A #### [address] Monocytes (Bld) [#/Vol] 0.8 10*3/uL Normal 0.0-0.8 [facility] Comment on above: Performed By: #### C BC, CMP, MG #### [address] Performed By: #### U A #### [address] Monocytes/100 WBC (Bld) 7.5 % Normal . [facility] Comment on above: Performed By: #### C BC, CMP, MG #### [address] Performed By: #### U A #### [address] Neutrophils (Bld) [#/Vol] 7.3 10*3/uL Normal 1.8-7.7 [facility] Comment on above: Performed By: #### C BC, CMP, MG #### [address] [address] [place] Performed By: #### U A #### [address] Neutrophils/100 WBC (Bld) 71.3 % Normal . [facility] Comment on above: Performed By: #### C BC, CMP, MG #### [facility] [address] [place] [address] Performed By: #### U A #### [address] NRBC% 0.1 /100{WBC} Normal 0-0.5 The [facility] Comment on above: Performed By: #### C BC, CMP, MG #### [address] Performed By: #### U A #### [address] Platelet mean volume (Bld) [Entitic vol] 9.0 fL Normal 6.6-10.1 The [facility] Comment on above: Performed By: #### C BC, CMP, MG #### [facility] [address] [place] [address] Performed By: #### U A #### [address] Platelets (Bld) [#/Vol] 197 10*3/uL Normal 150-450 [facility] Comment on above: Performed By: #### C BC, CMP, MG #### [facility] [address] [place] [address] Performed By: #### U A #### [address] RBC (Bld) [#/Vol] 4.12 10*6/uL Normal 3.90-5.60 [facility] Comment on above: Performed By: #### C BC, CMP, MG #### [facility] [address] [place] [address] Performed By: #### U A #### [place] [id number] [place] WBC (Bld) [#/Vol] 10.2 10*3/uL Normal 4.1-10.5 [facility] Comment on above: Performed By: #### C BC, CMP, MG #### [address] Performed By: #### U A #### [address] Comprehensive Metabolic Pane obdulio 07-12-2024 Albumin [Mass/Vol] 3.9 g/dL Normal 3.5-5.7 The [facility] Comment on above: Performed By: #### C BC, BMP #### [address] Performed By: #### U A #### [address] Albumin/Globulin [Mass ratio] 1.6 {ratio} Normal [facility] Comment on above: Performed By: #### C BC, BMP #### [address] Performed By: #### U A #### [address] ALP [Catalytic activity/Vol] 86 U/L Normal 34-104 [facility] Comment on above: Performed By: #### C BC, BMP #### [address] Performed By: #### U A #### [address] ALT [Catalytic activity/Vol] 15 U/L Normal 7-52 [facility] Comment on above: Performed By: #### C BC, BMP #### [address] Performed By: #### U A #### [address] Anion gap [Moles/Vol] 12.2 mmol/L Normal 6.0-15.0 [facility] Comment on above: Performed By: #### C BC, BMP #### [facility] [address] [place] [address] Performed By: #### U A #### [address] AST [Catalytic activity/Vol] 11 U/L Low 13-39 [facility] Comment on above: Performed By: #### C BC, BMP #### [facility] [address] [place] [address] Performed By: #### U A #### [address] Bilirubin [Mass/Vol] 0.7 mg/dL Normal 0.3-1.0 [facility] Comment on above: Performed By: #### C BC, BMP #### [address] Performed By: #### U A #### [address] Calcium [Mass/Vol] 9.0 mg/dL Normal 8.6-10.3 The [facility] Comment on above: Performed By: #### C BC, BMP #### [facility] [address] [place] [address] Performed By: #### U A #### [address] Chloride [Moles/Vol] 102 mmol/L Normal 98-107 [facility] Comment on above: Performed By: #### C BC, BMP #### [address] Performed By: #### U A #### [address] CO2 [Moles/Vol] 27.6 mmol/L Normal 21.0-31.0 The [facility] Comment on above: Performed By: #### C BC, BMP #### [facility] [address] [place] [address] Performed By: #### U A #### [place] [address] Creatinine [Mass/Vol] 1.01 mg/dL Normal 0.70-1.30 [facility] Comment on above: Performed By: #### C BC, BMP #### [address] Performed By: #### U A #### [address] Creatinine Clr Calc Pharmacy 53.09 Normal [facility] Comment on above: Performed By: #### C BC, BMP #### [address] Performed By: #### U A #### [address] GFR/1.73 sq M.predicted MDRD (S/P/Bld) [Vol rate/Area] mL/min/{1.73_m2} Normal [facility] Comment on above: Performed By: #### C FREDDY, BMP #### [address] Performed By: #### U A #### [address] Globulin (S) [Mass/Vol] 2.5 g/dL Normal [facility] Comment on above: Performed By: #### C BC, BMP #### [address] Performed By: #### U A #### [address] Glucose [Mass/Vol] 120 mg/dL High 70-100 The [facility] Comment on above: Result Comment: [place] Glucose Reference Range is dependent on time and content of last meal. Glucose of more than 200 mg/dL in a nonstressed, ambulatory subject supports the diagnosis of Diabetes Mellitus. ADA recommended reference range Performed By: #### C BC, BMP #### [address] Performed By: #### U A #### [address] [address] [place] Potassium [Moles/Vol] 4.8 mmol/L Normal 3.5-5.1 [facility] Comment on above: Performed By: #### C BC, BMP #### [address] Performed By: #### U A #### [address] Protein [Mass/Vol] 6.4 g/dL Normal 6.4-8.9 The [facility] Comment on above: Performed By: #### C BC, BMP #### [address] Performed By: #### U A #### [address] Sodium [Moles/Vol] 137 mmol/L Normal 136-145 The [facility] Comment on above: Performed By: #### C BC, BMP #### [address] Performed By: #### U A #### [address] Urea nitrogen [Mass/Vol] 26 mg/dL High 7-25 [facility] Comment on above: Performed By: #### C BC, BMP #### [facility] [address] [place] [address] Performed By: #### U A #### [address] Creatinine [Mass/volume] in Serum or PlasmaOrdered By: Talib Faustin on 07-12-2024 Creatinine [Mass/Vol] Creatinine [Mass/v olume] in Serum or Plasma 0.70-1.30 [facility] Eosinophils Auto (Bld) [#/Vo l]Ordered By: Talib Faustin on 07-12-2024 Eosinophils (Bld) [#/Vol] Automated eosinophil count 0.0-0.45 [facility] Eosinophils/100 WBC Auto (Bl d)Ordered By: Talib Faustin on 07-12-2024 Eosinophils/100 WBC (Bld) Automated eosinophil % . [facility] Erythrocyte distribution wid th Auto (RBC) [Ratio]Ordered By: Talib Faustin on 07-12-2024 Erythrocyte distribution width (RBC) [Ratio] Erythrocyte distribution width [Ratio] by Automated count 12.0-14.8 [facility] Globulin Calc (S) [Mass/Vol] Ordered By: Talib Faustin on 07-12-2024 Globulin (S) [Mass/Vol] Serum globulin measurement by calculation (mass/volume) [facility] Glucose [Mass/volume] in Ser um or PlasmaOrdered By: Talib Faustin on 07-12-2024 Glucose [Mass/Vol] Glucose [Mass/volume ] in Serum or Plasma High 70-100 [facility] Comment on above: ADA recommended refe rence rangeRandom Glucose Reference Range is dependent on time and content of last meal. Glucose of more than 200 mg/dL in a nonstressed, ambulatory subject supports the diagnosis of Diabetes Mellitus. Hematocrit Auto (Bld) [Volum e fraction]Ordered By: Talib Faustin on 07-12-2024 Hematocrit (Bld) [Volume fraction] Hematocrit [Volume Fraction] of Blood by Automated count Low 38.8-50.0 [facility] Hemoglobin [Mass/volume] in BloodOrdered By: Talib Faustin on 07-12-2024 Hemoglobin (Bld) [Mass/Vol] Hemoglobin [Mass/volume] in Blood Low 13.0-17.0 [facility] Leukocytes [#/volume] correc suzy for nucleated erythrocytes in Blood by Automated counOrdered By: Talib Faustin on 07-12-2024 WBC corrected for nucl RBC Auto (Bld) [#/Vol] Leukocytes [#/volume] corrected for nucleated erythrocytes in Blood by Automated coun 4.1-10.5 [facility] Lymphocytes Auto (Bld) [#/Vo l]Ordered By: Talib Faustin on 07-12-2024 Lymphocytes (Bld) [#/Vol] Lymphocytes [#/volume] in Blood by Automated count 1.00-4.8 [facility] Lymphocytes/100 WBC Auto (Bl d)Ordered By: Talib Faustin on 07-12-2024 Lymphocytes/100 WBC (Bld) Lymphocytes/100 leukocytes in Blood by Automated count . [facility] MCH Auto (RBC) [Entitic mass ]Ordered By: Talib Faustin on 07-12-2024 MCH (RBC) [Entitic mass] MCH [Entitic mass] by Automated count 27.5-35.2 [facility] MCHC Auto (RBC) [Mass/Vol]Or dered By: Talib Faustin on 07-12-2024 MCHC (RBC) [Mass/Vol] MCHC [Mass/volume] by Automated count 32.5-35.6 [facility] MCV Auto (RBC) [Entitic vol] Ordered By: Talib Faustin on 07-12-2024 MCV (RBC) [Entitic vol] MCV [Entitic volume] by Automated count 83.5-101 [facility] Magnesiumon 07-12-2024 Magnesium [Mass/Vol] 1.9 mg/dL Normal 1.9-2.7 [facility] Comment on above: Result Comment: PERF ORMED BY: [place] [address] PATHOLOGIST [employer] HEBER SHANNON M.D. Performed By: #### C BC, BMP #### [facility] [address] [place] [address] Performed By: #### U A #### [facility] [address] [place] [address] Magnesium [Mass/volume] in S stephanie or PlasmaOrdered By: Talib Faustin on 07-12-2024 Magnesium [Mass/Vol] Magnesium [Mass/vol ume] in Serum or Plasma 1.9-2.7 [facility] Monocytes Auto (Bld) [#/Vol] Ordered By: Talib Faustin on 07-12-2024 Monocytes (Bld) [#/Vol] Automated blood monocyte count 0.0-0.8 [facility] [facility] Monocytes/100 WBC Auto (Bld) Ordered By: Talib Faustin on 07-12-2024 Monocytes/100 WBC (Bld) Automated monocyte % . [facility] Neutrophils Auto (Bld) [#/Vo l]Ordered By: Talib Faustin on 07-12-2024 Neutrophils (Bld) [#/Vol] Neutrophils [#/volume] in Blood by Automated count 1.8-7.7 [facility] Neutrophils/100 WBC Auto (Bl d)Ordered By: Talib Faustin on 07-12-2024 Neutrophils/100 WBC (Bld) Automated neutrophil % . [facility] No Panel InformationOrdered By: Talib Faustin on 07-12-2024 Estimated GFR (CKD-EPI) > 60.0 mL/Min [facility] Creatinine Clearance (Chem 53.09 [facility] Nucleated erythrocytes [Pres ence] in Blood by Automated countOrdered By: Talib Faustin on 07-12-2024 Nucleated RBC Auto Ql (Bld) Nucleated erythrocytes [Presence] in Blood by Automated count 0-0.5 [facility] Platelet mean volume Auto (B ld) [Entitic vol]Ordered By: Talib Faustin on 07-12-2024 Platelet mean volume (Bld) [Entitic vol] Platelet mean volume [Entitic volume] in Blood by Automated count 6.6-10.1 [facility] Platelets Auto (Bld) [#/Vol] Ordered By: Talib Faustin on 07-12-2024 Platelets (Bld) [#/Vol] Platelets [#/volume] in Blood by Automated count 150-450 [facility] Potassium [Moles/volume] in Serum or PlasmaOrdered By: Talib Faustin on 07-12-2024 Potassium [Moles/Vol] Potassium [Moles/v olume] in Serum or Plasma 3.5-5.1 [facility] Protein [Mass/volume] in Ser um or PlasmaOrdered By: Talib Faustin on 07-12-2024 Protein [Mass/Vol] Protein [Mass/volume ] in Serum or Plasma 6.4-8.9 [facility] RBC Auto (Bld) [#/Vol]Ordere d By: Talib Faustin on 07-12-2024 RBC (Bld) [#/Vol] Erythrocytes [#/volu me] in Blood by Automated count 3.90-5.60 [facility] Serum or plasma albumin/glob ulin mass ratioOrdered By: rick Lamasethan on 07-12-2024 Albumin/Globulin [Mass ratio] Serum or plasma albumin/globulin mass ratio [facility] Serum or plasma anion gap de terminationOrdered By: rick LamasDelvin on 07-12-2024 Anion gap [Moles/Vol] Serum or plasma an ion gap determination 6.0-15.0 [facility] Sodium [Moles/volume] in Ser um or PlasmaOrdered By: rick ethan on 07-12-2024 Sodium [Moles/Vol] Sodium [Moles/volume ] in Serum or Plasma 136-145 [facility] Urea nitrogen [Mass/volume] in Serum or PlasmaOrdered By: rick ethan on 07-12-2024 Urea nitrogen [Mass/Vol] Urea nitrogen [Mass/volume] in Serum or Plasma High 7-25 [facility] WBC Auto (Bld) [#/Vol]Ordere d By: rick ethan on 07-12-2024 WBC (Bld) [#/Vol] Leukocytes [#/volume ] in Blood by Automated count 4.1-10.5 [facility] ANESon 07-10-2024 ANES ----- ----- Attestation signed by Stacey Brunner MD at 07/10/2024 8:41 AM By using [...] ----- Patient: Jeremie Bennett Procedure Information Date/Time: 07/10/24829 Procedure: PPM generator change - dual Location: [facility] SCREEN DOOR MAKER 1 EP / [facility] V[facility]ULAR [facility] (Cath) Providers: Stacey Brunner MD Clinical information reviewed: [employer] Meds Physical Exam Airway Mallampati: III Cardiovascular Rhythm: regular Rate: normal (-) murmur Dental Pulmonary (-) decreased breath sounds Abdominal (+) obese Anesthesia Plan ASA 3 other (Conscious Sedation) intravenous induction Anesthetic plan and risks discussed with patient. Use of blood products discussed with patient who consented to blood products. Plan discussed with attending. Additional Equipment Requests Normal [facility] HPon 07-10-2024 ----- ----- Attestation signed by Stacey Brunner MD at 07/10/2024 8:41 AM By using [...] an additional personal documentation from me. ----- [place] [facility] Consult Note [place] [facility] Reason for visit: gen change 07/10/2024 [...] Heart valve disease Hyperlipidemia [place] (ventricular tachycardia) ([facility]) PSH: Surgical History Past Surgical History: Procedure Laterality Date ABLATION OF DYSRHYTHMIC FOCUS CARDIAC CATHETERIZATION INSERT / REPLACE / REMOVE PACEMAKER SH: Social Determinants of Health Tobacco Use: Medium Risk (05/11/2024) Received from [facility] Patient History Smoking Tobacco Use: Former Smokeless Tobacco Use: Former Passive Exposure: Not on file Alcohol Use: Not on file Financial Resource Strain: Not on file Food Insecurity: Not on file Transportation Needs: Not on file Physical Activity: Not on file Stress: Not on file Social Connections: Not on file Intimate Partner Violence: Unknown (07/08/2023) [place] Safety & Environment Fear of Current or Ex-Partner: Not on file Emotionally Abused: Not on file Physically Abused: Not on file Sexually Abused: Not on file Physically or Sexually Abused: Not on file Depression: Not at risk (04/07/2024) Received from [facility] PHQ-2 Patient Health Questionnaire-2 Score: 0 [...] no b (more content not included)... Normal [facility] NURSNOTEon 07-10-2024 NURSNOTE RN educated pt on [...] off of unit with all of belongings. [facility] NURSNOTE CHG wipes and betadi ne nasal swabs completed. [facility] Orders Onlyon 07-10-2024 Orders Only [id number] [address] P 1940 M Date Provider Department Center 07/10/2024 [facility]IF GONZALEZ [facility] [place] HeartVAS Family History Problem Relation Age of Onset Coronary artery disease Mother Kidney disease Mother Heart failure Mother Family Status - Relation Status Age at Mother [facility] CBC w/ Auto DiffOrdered By: SYSTEM SYSTEM on 07-03-2024 Band form neutrophils/100 WBC (Bld) 8.0 % High 0.0-6.0 [facility] Comment on above: Performed By: #### 2 [id number] #### [facility] [address] [place] [address] Basophils (Bld) [#/Vol] 0.0 E9/L Normal 0.0-0.2 [facility] Comment on above: Performed By: #### 2 [id number] #### [facility] [address] [place] [address] Eosinophils (Bld) [#/Vol] 0.0 E9/L Normal 0.0-0.5 [facility] Comment on above: Performed By: #### 2 [id number] #### [facility] [address] [place] [address] Eosinophils/100 WBC (Bld) 0.0 % Normal 0.0-8.0 [facility] Comment on above: Performed By: #### 2 [id number] #### [facility] [address] [place] [address] Erythrocyte distribution width (RBC) [Ratio] 13.9 % Normal 10.9-14.2 [facility] Comment on above: Performed By: #### 2 [id number] #### [facility] [address] [place] [address] Hematocrit (Bld) [Volume fraction] 39.7 % Normal 37.7-49.0 [facility] Comment on above: Performed By: #### 2 [id number] #### [facility] [address] [place] [address] Hemoglobin (Bld) [Mass/Vol] 13.3 g/dL Low 13.5-17.5 [facility] Comment on above: Performed By: #### 2 [id number] #### [facility] [address] [place] [address] Lymphocytes (Bld) [#/Vol] 2.2 E9/L Normal 1.0-4.0 [facility] Comment on above: Performed By: #### 2 [id number] #### [facility] [address] [place] [address] Lymphocytes/100 WBC (Bld) 20.0 % Normal 14.0-50.0 [facility] Comment on above: Performed By: #### 2 671614 #### [facility] [address] [place] [address] MCH (RBC) [Entitic mass] 31.3 pg Normal 27.0-34.0 [facility] Comment on above: Performed By: #### 2 [id number] #### [facility] [address] [place] [address] MCHC (RBC) [Mass/Vol] 33.4 g/dL Normal 31.4-36.0 [facility] Comment on above: Performed By: #### 2 802687 #### [facility] [address] [place] [address] MCV (RBC) [Entitic vol] 93.5 fL Normal 80.0-100.0 [facility] Comment on above: Performed By: #### 2 174571 #### [facility] [address] [place] [address] Monocytes (Bld) [#/Vol] 0.6 E9/L Normal 0.2-1.0 [facility] Comment on above: Performed By: #### 2 003924 #### [facility] [address] [place] [address] Myelocytes/100 WBC (Bld) 3.0 % High 0.0-0.0 [facility] Comment on above: Performed By: #### 2 [id number] #### [facility] [address] [place] [address] Neutrophils (Bld) [#/Vol] 7.4 E9/L Invalid Interpretation Code [facility] Comment on above: Performed By: #### 2 123378 #### [facility] [address] [place] [address] Platelet 271.0 E9/L Normal 150.0-500. 0 [facility] Comment on above: Performed By: #### 2 445146 #### [facility] [address] [place] [address] Platelet mean volume (Bld) [Entitic vol] 9.2 fL Normal 6.4-10.8 [facility] Comment on above: Performed By: #### 2 434996 #### [facility] [address] [place] [address] RBC (Bld) [#/Vol] 4.2 E12/L Low 4.3-5.9 [facility] Comment on above: Performed By: #### 2 480036 #### [facility] [address] [place] [address] Segmented neutrophils/100 WBC (Bld) 62.0 % Normal 36.0-75.0 [facility] Comment on above: Performed By: #### 2 147356 #### [facility] [address] [place] [address] Variant lymphocytes/100 WBC (Bld) 1.0 % High 0.0-0.0 [facility] Comment on above: Performed By: #### 2 397457 #### [facility] [address] [place] [address] WBC corrected for nucl RBC Auto (Bld) [#/Vol] 10.5 E9/L Normal 4.0-11.0 [facility] rip Comment on above: Performed By: #### 2 614564 #### [facility] [address] [place] [address] CBC w/ Auto Diffon 5 RBC size Nom (Bld) NORMAL Invalid Interpretation Code [facility] Comment on above: Performed By: #### 2 [id number] #### [facility] [address] [place] [address] CHEMISTRYOrdered By: SYSTEM SYSTEM on 07-03-2024 Albumin/Globulin [...] Comment on above: Performed By: #### 2 078685 #### [facility] [address] [place] [address] Anion gap [Moles/Vol] 10 mmol/L Normal 6-16 Rem isol Chem Comment on above: Performed By: #### 2 337322 #### [facility] [address] [place] [address] Bilirubin [Mass/Vol] 0.3 mg/dL Normal 0.0-1.1 Chris janee Chem Comment on above: Performed By: #### 2 878128 #### [facility] [address] [place] [address] Calcium [Mass/Vol] 9.1 mg/dL Normal 8.9-11.1 Rem[facility] l Chem Comment on above: Performed By: #### 2 706106 #### [facility] [address] [place] [address] Chloride [Moles/Vol] 107 mmol/L Normal 101-111 Chris janee Chem Comment on above: Performed By: #### 2 505105 #### [facility] [address] [place] [address] CO2 [Moles/Vol] 28 mmol/L Normal 21-31 [facility] C hem Comment on above: Performed By: #### 2 113797 #### [facility] [address] [place] [address] Creatinine [Mass/Vol] 1.0 mg/dL Normal 0.5-1.3 Rem isol Chem Comment on above: Performed By: #### 2 110751 #### [facility] [address] [place] [address] Globulin (S) [Mass/Vol] 2.7 g/dL Normal 1.4-4.0 [facility] Chem Comment on above: Performed By: #### 2 911658 #### [facility] [address] [place] [address] Glucose [Mass/Vol] 138 mg/dL Normal 55-199 Rem[facility] l Chem Comment on above: Performed By: #### 2 125778 #### [facility] [address] [place] [address] Potassium [Moles/Vol] 4.5 mmol/L Normal 3.5-5.3 Rem isol Chem Comment on above: Performed By: #### 2 395581 #### [facility] [address] [place] [address] Protein [Mass/Vol] 6.7 g/dL Normal 6.0-7.8 Rem[facility] Chem Comment on above: Performed By: #### 2 968081 #### [facility] [address] [place] [address] Sodium [Moles/Vol] 140 mmol/L Normal 135-145 Rem[facility] Chem Comment on above: Performed By: #### 2 880860 #### [facility] [address] [place] [address] Urea nitrogen [Mass/Vol] 20 mg/dL Normal 5-21 [facility] Chem Comment on above: Performed By: #### 2 989551 #### [facility] [address] [place] [address] CMPon 07-03-2024 Albumin/Globulin (S) [Mass conc ratio] 1.5 Normal 1.1-2.2 [facility] Comment on above: Performed By: #### 2 528325 #### [facility] [address] [place] [address] ALP [Catalytic activity/Vol] 70 Int._Unit/L Normal 21-98 [facility] Comment on above: Performed By: #### 2 567772 #### [facility] [address] [place] [address] ALT No additional P-5'-P [Catalytic activity/Vol] 24 Int._Unit/L Normal 6-46 [facility] Comment on above: Performed By: #### 2 786529 #### [facility] [address] [place] [address] AST [Catalytic activity/Vol] 20 Int._Unit/L Normal 5-43 [facility] Comment on above: Performed By: #### 2 549769 #### [facility] [address] [place] [address] Urea nitrogen/Creatinine [Mass ratio] 20 No Units Normal 10-20 [facility] Comment on above: Performed By: #### 2 231234 #### [facility] [address] [place] [address] HEMATOLOGYOrdered By: SYSTEM SYSTEM on 07-03-2024 Basophils/100 [...] Comment on above: Performed By: #### 2 [id number] #### [facility] [address] [place] [address] eGFROrdered By: SYSTEM SYSTE M on 07-03-2024 eGFR 74 mL/min/1.73 m2 Normal >=59 [facility] Comment on above: Performed By: #### 1 [id number] #### [facility] [address] [place] [address] 36on 06-28-[address] Arellano pt w as called to schedule cardiac clearance appt. Pt stated he would rather be seen in [place], so I advised pt to call and schedule with them. Normal [facility] No Panel Informationon 06-23 [employer] [facility] [employer] indicated a mild to severe sensorineural hearing loss 250-8000 Hz, bilaterally. [facility] [place] Basic Metabolic Panelon Anion gap [Moles/Vol] 8.5 mmol/L Normal 6.0-15.0 [facility] Comment on above: Performed By: #### C BC, BMP #### [address] Performed By: #### C MP, CBC #### [place] [address] [place] Calcium [Mass/Vol] 9.0 mg/dL Normal 8.6-10.3 The [facility] Comment on above: Result Comment: PERF ORMED BY: [place] [address] PATHOLOGIST [employer] HEBER SHANNON M.D. Performed By: #### C BC, BMP #### [place] [address] [place] Performed By: #### C MP, CBC #### [facility] [address] [place] [address] [place] Chloride [Moles/Vol] 110 mmol/L High 98-107 [facility] Comment on above: Performed By: #### C BC, BMP #### [address] Performed By: #### C MP, CBC #### [address] CO2 [Moles/Vol] 24.5 mmol/L Normal 21.0-31.0 The [facility] Comment on above: Performed By: #### C BC, BMP #### [address] Performed By: #### C MP, CBC #### [address] Creatinine [Mass/Vol] 0.97 mg/dL Normal 0.70-1.30 [facility] Comment on above: Performed By: #### C BC, BMP #### [address] Performed By: #### C MP, CBC #### [address] GFR/1.73 sq M.predicted MDRD (S/P/Bld) [Vol rate/Area] mL/min/{1.73_m2} Normal [facility] Comment on above: Performed By: #### C BC, BMP #### [address] Performed By: #### C MP, CBC #### [address] Glucose [Mass/Vol] 118 mg/dL High 70-100 The [facility] Comment on above: Result Comment: [place] om Glucose Reference Range is dependent on time and content of last meal. Glucose of more than 200 mg/dL in a nonstressed, ambulatory subject supports the diagnosis of Diabetes Mellitus. ADA recommended reference range Performed By: #### C BC, BMP #### [address] Performed By: #### C MP, CBC #### [address] Potassium [Moles/Vol] 4.0 mmol/L Normal 3.5-5.1 [facility] Comment on above: Performed By: #### C BC, BMP #### [address] Performed By: #### C MP, CBC #### [facility] [address] Sodium [Moles/Vol] 139 mmol/L Normal 136-145 The [facility] Comment on above: Performed By: #### C BC, BMP #### [address] Performed By: #### C MP, CBC #### [address] Urea nitrogen [Mass/Vol] 19 mg/dL Normal 7-25 [facility] Comment on above: Performed By: #### C BC, BMP #### [address] Performed By: #### C MP, CBC #### [address] Basic metabolic 1998 panelon 06-22-2024 Anion gap [Moles/Vol] 8.5 mmol/L 6.0 - 15.0 meq/L [facility] Calcium [Mass/Vol] 9 mg/dL 8.6 - 10. 3 mg/dL [facility] Chloride [Moles/Vol] 110 mmol/L High 98 - 10 7 mmol/L [facility] CO2 [Moles/Vol] 24.5 mmol/L 21.0 - 31.0 mmol/L [facility] Creatinine (U) [Mass/Vol] 0.97 mg/dL 0.70 - 1.30 mg/dL [facility] ESTIMATED GFR mL/Min [facility] Glucose [Mass/Vol] 118 mg/dL High 70 - 100 mg/dL [facility] Comment on above: Random Glucose Refer ence Range is dependent on time and content of last meal. Glucose of more than 200 mg/dL in a nonstressed, ambulatory subject supports the diagnosis of Diabetes Mellitus. ADA recommended reference range Interpretation and review of laboratory results Abnormal [facility] Potassium [Moles/Vol] 4 mmol/L 3.5 - 5.1 mmol/L [facility] Sodium [Moles/Vol] 139 mmol/L 136 - 145 mmol/L [facility] Urea nitrogen [Mass/Vol] 19 mg/dL 7 - 25 mg/dL [facility] Basophils Auto (Bld) [#/Vol] Ordered By: Matteo Melo on 06-22-2024 Basophils (Bld) [#/Vol] Automated basophil count 0.0-0.2 [facility] Basophils/100 WBC Auto (Bld) Ordered By: Matteo Melo on 06-22-2024 Basophils/100 WBC (Bld) Automated basophil % . [facility] CBC W Auto Differential pane l (Bld)on 06-22-2024 Basophils (Bld) [#/Vol] 0.1 10*3/uL 0.0 - 0.2 10*3/uL [facility] Basophils/100 WBC Manual cnt (Syn fld) 0.7 % . [facility] Eosinophils (Bld) [#/Vol] 0.4 10*3/uL 0.0 - 0.45 10*3/uL [facility] Eosinophils/100 WBC Manual cnt (Syn fld) 5 % . [facility] Erythrocyte distribution width (RBC) [Ratio] 13.4 % 12.0 - 14.8 % [facility] Hematocrit (Bld) [Volume fraction] 40.7 % 38.8 - 50.0 % [facility] Hemoglobin (Bld) [Mass/Vol] 13.7 g/dL 13.0 - 17.0 g/dL [facility] Lymphocytes (Bld) [#/Vol] 2.5 10*3/uL 1.00 - 4.8 10*3/uL [facility] Lymphocytes/100 WBC Manual cnt (Syn fld) 30.2 % . [facility] MCH (RBC) [Entitic mass] 31 pg 27.5 - 35.2 pg [facility] MCHC (RBC) [Mass/Vol] 33.7 g/dL 32.5 - 35.6 g/dL [facility] MCV (RBC) [Entitic vol] 92 fL 83.5 - 101 fL [facility] Monocytes (Bld) [#/Vol] 0.7 10*3/uL 0.0 - 0.8 10*3/uL [facility] Monocytes+Macrophages/ 100 WBC Manual cnt (Syn fld) 8.8 % . [facility] Neutrophils (Bld) [#/Vol] 4.6 10*3/uL 1.8 - 7.7 10*3/uL [facility] Neutrophils/100 WBC Manual cnt (Syn fld) 55.3 % . [facility] NRBC 0.2 /100{WBC} 0 - 0.5 /100{WBC} [facility] Platelet mean volume (Bld) [Entitic vol] 8.9 fL 6.6 - 10.1 fL [facility] Platelets (Bld) [#/Vol] 234 10*3/uL 150 - 450 10*3/uL [facility] RBC LM.HPF (Urine sed) [#/Area] 4.43 10*6/uL 3.90 - 5.60 10*6/uL [facility] WBC (Bld) [#/Vol] 8.4 10*3/uL 4.1 - 10.5 10*3/uL [facility] WBC LM.HPF (Urine sed) [#/Area] 8.4 10*3/uL 4.1 - 10.5 10*3/uL [facility] Calcium [Mass/volume] in Ser um or PlasmaOrdered By: Matteo Melo on 06-22-2024 Calcium [Mass/Vol] Calcium [Mass/volume ] in Serum or Plasma 8.6-10.3 [facility] Carbon dioxide, total [Moles /volume] in Serum or PlasmaOrdered By: Matteo Melo on 06-22-2024 CO2 [Moles/Vol] Carbon dioxide, tota l [Moles/volume] in Serum or Plasma 21.0-31.0 [facility] Chloride [Moles/volume] in S stephanie or PlasmaOrdered By: Matteo Melo on 06-22-2024 Chloride [Moles/Vol] Chloride [Moles/vol ume] in Serum or Plasma High 98-107 [facility] Complete Blood Count Auto Di ffon 06-22-2024 Basophils (Bld) [#/Vol] 0.1 10*3/uL Normal 0.0-0.2 [facility] Comment on above: Result Comment: PERF ORMED BY: [place] [address] PATHOLOGIST [employer] HEBER SHANNON M.D. Performed By: #### C BC, BMP #### [address] Performed By: #### C MP, CBC #### [address] Basophils/100 WBC (Bld) 0.7 % Normal . [facility] Comment on above: Performed By: #### C BC, BMP #### [address] Performed By: #### C MP, CBC #### [address] Eosinophils (Bld) [#/Vol] 0.4 10*3/uL Normal 0.0-0.45 [facility] Comment on above: Performed By: #### C BC, BMP #### [address] Performed By: #### C MP, CBC #### [address] Eosinophils/100 WBC (Bld) 5.0 % Normal . [facility] Comment on above: Performed By: #### C BC, BMP #### [address] Performed By: #### C MP, CBC #### [address] Erythrocyte distribution width (RBC) [Ratio] 13.4 % Normal 12.0-14.8 [facility] Comment on above: Performed By: #### C BC, BMP #### [address] Performed By: #### C MP, CBC #### [address] Hematocrit (Bld) [Volume fraction] 40.7 % Normal 38.8-50.0 [facility] Comment on above: Performed By: #### C BC, BMP #### [address] Performed By: #### C MP, CBC #### [address] Hemoglobin (Bld) [Mass/Vol] 13.7 g/dL Normal 13.0-17.0 [facility] Comment on above: Performed By: #### C BC, BMP #### [address] Performed By: #### C MP, CBC #### [address] Lymphocytes (Bld) [#/Vol] 2.5 10*3/uL Normal 1.00-4.8 [facility] Comment on above: Performed By: #### C BC, BMP #### [address] Performed By: #### C MP, CBC #### [address] Lymphocytes/100 WBC (Bld) 30.2 % Normal . [facility] Comment on above: Performed By: #### C BC, BMP #### [address] Performed By: #### C MP, CBC #### [address] MCH (RBC) [Entitic mass] 31.0 pg Normal 27.5-35.2 [facility] Comment on above: Performed By: #### C BC, BMP #### [address] Performed By: #### C MP, CBC #### [address] MCV (RBC) [Entitic vol] 92.0 fL Normal 83.5-101 [facility] Comment on above: Performed By: #### C BC, BMP #### [place] [address] [place] Performed By: #### C MP, CBC #### [address] Mean Corpuscular HGB Conc 33.7 g/dL Normal 32.5-35.6 [facility] Comment on above: Performed By: #### C BC, BMP #### [address] Performed By: #### C MP, CBC #### [address] Monocytes (Bld) [#/Vol] 0.7 10*3/uL Normal 0.0-0.8 [facility] Comment on above: Performed By: #### C BC, BMP #### [address] Performed By: #### C MP, CBC #### [address] Monocytes/100 WBC (Bld) 8.8 % Normal . [facility] Comment on above: Performed By: #### C BC, BMP #### [address] Performed By: #### C MP, CBC #### [address] Neutrophils (Bld) [#/Vol] 4.6 10*3/uL Normal 1.8-7.7 [facility] Comment on above: Performed By: #### C BC, BMP #### [address] Performed By: #### C MP, CBC #### [address] Neutrophils/100 WBC (Bld) 55.3 % Normal . [facility] Comment on above: Performed By: #### C BC, BMP #### [address] Performed By: #### C MP, CBC #### [address] NRBC% 0.2 /100{WBC} Normal 0-0.5 [facility] Comment on above: Performed By: #### C BC, BMP #### [address] Performed By: #### C MP, CBC #### [address] Platelet mean volume (Bld) [Entitic vol] 8.9 fL Normal 6.6-10.1 The [facility] Comment on above: Performed By: #### C BC, BMP #### [address] Performed By: #### C MP, CBC #### [address] Platelets (Bld) [#/Vol] 234 10*3/uL Normal 150-450 The [facility] Comment on above: Performed By: #### C BC, BMP #### [address] Performed By: #### C MP, CBC #### [address] RBC (Bld) [#/Vol] 4.43 10*6/uL Normal 3.90-5.60 The [facility] Comment on above: Performed By: #### C BC, BMP #### [address] Performed By: #### C MP, CBC #### [address] WBC (Bld) [#/Vol] 8.4 10*3/uL Normal 4.1-10.5 The [facility] Comment on above: Performed By: #### C BC, BMP #### [address] Performed By: #### C MP, CBC #### [address] Creatinine [Mass/volume] in Serum or PlasmaOrdered By: Matteo Melo on 06-22-2024 Creatinine [Mass/Vol] Creatinine [Mass/v olume] in Serum or Plasma 0.70-1.30 [facility] ECG 12 lead ECGon 06-22-2024 ECG 12 lead ECG [facility] Main [address] [address] Electrocardiograph Report Signed Patient: Jeremie Bennett MR#: [id number] : 1940 Acct:[id number] Age/Sex: 83 / M ADM Date: 06/22/24 Loc: PS Room: Type: [facility] CLI Attending Dr: Matteo Melo MD Ordering [...] Santiago MD 0 06/23/24 1517 Normal [facility] ECG 12 lead ECG [facility] Main [address] [address] Electrocardiograph Report Signed Patient: Jeremie Bennett MR#: [id number] : 1940 Acct:[id number] Age/Sex: 83 / M ADM Date: 06/22/24 [...] Santiago MD 0 06/23/24 1517 Normal [facility] Eosinophils Auto (Bld) [#/Vo l]Ordered By: Matteo Melo on 06-22-2024 Eosinophils (Bld) [#/Vol] Automated eosinophil count 0.0-0.45 [facility] Eosinophils/100 WBC Auto (Bl d)Ordered By: Matteo Melo on 06-22-2024 Eosinophils/100 WBC (Bld) Automated eosinophil % . [facility] Erythrocyte distribution wid th Auto (RBC) [Ratio]Ordered By: Matteo Melo on 06-22-2024 Erythrocyte distribution width (RBC) [Ratio] Erythrocyte distribution width [Ratio] by Automated count 12.0-14.8 [facility] Glucose [Mass/volume] in Ser um or PlasmaOrdered By: Matteo Melo on 06-22-2024 Glucose [Mass/Vol] Glucose [Mass/volume ] in Serum or Plasma High 70-100 [facility] Comment on above: ADA recommended refe rence rangeRandom Glucose Reference Range is dependent on time and content of last meal. Glucose of more than 200 mg/dL in a nonstressed, ambulatory subject supports the diagnosis of Diabetes Mellitus. Hematocrit Auto (Bld) [Volum e fraction]Ordered By: Matteo Melo on 06-22-2024 Hematocrit (Bld) [Volume fraction] Hematocrit [Volume Fraction] of Blood by Automated count 38.8-50.0 [facility] Hemoglobin [Mass/volume] in BloodOrdered By: Matteo Melo on 06-22-2024 Hemoglobin (Bld) [Mass/Vol] Hemoglobin [Mass/volume] in Blood 13.0-17.0 [facility] Leukocytes [#/volume] correc suzy for nucleated erythrocytes in Blood by Automated counOrdered By: Matteo Melo on 06-22-2024 WBC corrected for nucl RBC Auto (Bld) [#/Vol] Leukocytes [#/volume] corrected for nucleated erythrocytes in Blood by Automated coun 4.1-10.5 [facility] Lymphocytes Auto (Bld) [#/Vo l]Ordered By: Matteo Melo on 06-22-2024 Lymphocytes (Bld) [#/Vol] Lymphocytes [#/volume] in Blood by Automated count 1.00-4.8 [facility] Lymphocytes/100 WBC Auto (Bl d)Ordered By: Matteo Melo on 06-22-2024 Lymphocytes/100 WBC (Bld) Lymphocytes/100 leukocytes in Blood by Automated count . [facility] MCH Auto (RBC) [Entitic mass ]Ordered By: Matteo Melo on 06-22-2024 MCH (RBC) [Entitic mass] MCH [Entitic mass] by Automated count 27.5-35.2 [facility] MCHC Auto (RBC) [Mass/Vol]Or dered By: Matteo Melo on 06-22-2024 MCHC (RBC) [Mass/Vol] MCHC [Mass/volume] by Automated count 32.5-35.6 [facility] MCV Auto (RBC) [Entitic vol] Ordered By: Matteo Melo on 06-22-2024 MCV (RBC) [Entitic vol] MCV [Entitic volume] by Automated count 83.5-101 [facility] Monocytes Auto (Bld) [#/Vol] Ordered By: Matteo Melo on 06-22-2024 Monocytes (Bld) [#/Vol] Automated blood monocyte count 0.0-0.8 [facility] Monocytes/100 WBC Auto (Bld) Ordered By: Matteo Melo on 06-22-2024 Monocytes/100 WBC (Bld) Automated monocyte % . [facility] Neutrophils Auto (Bld) [#/Vo l]Ordered By: Matteo Melo on 06-22-2024 Neutrophils (Bld) [#/Vol] Neutrophils [#/volume] in Blood by Automated count 1.8-7.7 [facility] Neutrophils/100 WBC Auto (Bl d)Ordered By: Matteo Melo on 06-22-2024 Neutrophils/100 WBC (Bld) Automated neutrophil % . [facility] No Panel InformationOrdered By: Matteo Melo on 06-22-2024 Estimated GFR (CKD-EPI) > 60.0 mL/Min [facility] Creatinine Clearance (Chem N/A [facility] Nucleated erythrocytes [Pres ence] in Blood by Automated countOrdered By: Matteo Melo on 06-22-2024 Nucleated RBC Auto Ql (Bld) Nucleated erythrocytes [Presence] in Blood by Automated count 0-0.5 [facility] Platelet mean volume Auto (B ld) [Entitic vol]Ordered By: Matteo Melo on 06-22-2024 Platelet mean volume (Bld) [Entitic vol] Platelet mean volume [Entitic volume] in Blood by Automated count 6.6-10.1 [facility] Platelets Auto (Bld) [#/Vol] Ordered By: Matteo Melo on 06-22-2024 Platelets (Bld) [#/Vol] Platelets [#/volume] in Blood by Automated count 150-450 [facility] Potassium [Moles/volume] in Serum or PlasmaOrdered By: Matteo Melo on 06-22-2024 Potassium [Moles/Vol] Potassium [Moles/v olume] in Serum or Plasma 3.5-5.1 [facility] RBC Auto (Bld) [#/Vol]Ordere d By: Matteo Melo on 06-22-2024 RBC (Bld) [#/Vol] Erythrocytes [#/volu me] in Blood by Automated count 3.90-5.60 [facility] Serum or plasma anion gap de terminationOrdered By: Matteo Melo on 06-22-2024 Anion gap [Moles/Vol] Serum or plasma an ion gap determination 6.0-15.0 [facility] Sodium [Moles/volume] in Ser um or PlasmaOrdered By: Matteo Melo on 06-22-2024 Sodium [Moles/Vol] Sodium [Moles/volume ] in Serum or Plasma 136-145 [facility] Urea nitrogen [Mass/volume] in Serum or PlasmaOrdered By: Matteo Melo on 06-22-2024 Urea nitrogen [Mass/Vol] Urea nitrogen [Mass/volume] in Serum or Plasma 7-25 [facility] WBC Auto (Bld) [#/Vol]Ordere d By: Matteo Melo on 06-22-2024 WBC (Bld) [#/Vol] Leukocytes [#/volume ] in Blood by Automated count 4.1-10.5 [facility] Surgical pathology studyon 0 06-05-2024 Surgical pathology study Pathology report.total SEE COMMENT Surgical Pathology Case: [id number] Authorizing Provider: Mary Schneider MD Collected: 06/05/2024 1609 Ordering Location: [facility] Received: 06/05/[address] [place] [address] Pathologist: Alessandro Arzate DDS Specimen: LYMPH NODE BIOPSY Path report.final diagnosis SEE COMMENT Lymph node, core biopsy: - Metastatic non-keratinizing squamous cell carcinoma, see note. 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 P16 by immunohistochemistry: Equivocal. 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 Reference Range (p16): Negative: <50% strong nuclear [...] submitted in toto in one cassette. [facility] AP ASR DISCLAIMER One or more of the reagents used to perform assays on this specimen MAY have contained components considered to be analyte specific reagents (ASR's). ASR's have not been cleared or approved by the U.S. Food and Drug Administration. These assays were developed and their performance characteristics determined by the Department of Pathology at [facility]. The FDA does not require this test [...] and negative controls which stained appropriately. Normal [facility] US GUIDED BIOPSY LYMPH NODE SUPERFICIALon 06-05-2024 US GUIDED BIOPSY LYMPH NODE SUPERFICIAL Interpreted By: Gaby Perez and Guirguis James STUDY: US GUIDED BIOPSY LYMPH NODE SUPERFICIAL; 06/05/2024 1:53 pm INDICATION: Signs/Symptoms:left neck enlarged lymph node seen on PET. COMPARISON: PET-CT dated 03/27/2024 ACCESSION NUMBER(S): [id number] ORDERING CLINICIAN: MARY SCHNEIDER TECHNIQUE: INTERVENTIONALIST(S): MD Juan Elena MD CONSENT: [...] intravenous fentanyl 50mcg and versed 0.5mg from 9733-3281. The physician was assisted by an independent [...] findings as stated. Performed and dictated at [facility]. MACRO: None. Signed by: Gaby Perez 06/05/2024 9:02 PM Dictation workstation: [id number] Normal [facility] US guidance for percutaneous biopsy of Lymph [...] findings as stated. Performed and dictated at [facility]. MACRO: None. Signed by: Gaby Perez 06/05/2024 9:02 PM Dictation workstation: [id number]ODAL Interpreted By: Gaby Perez and Guirguis James STUDY: US GUIDED BIOPSY LYMPH NODE SUPERFICIAL; 06/05/2024 1:53 pm INDICATION: Signs/Symptoms:left neck enlarged lymph node seen on PET. COMPARISON: PET-CT dated 03/27/2024 ACCESSION NUMBER(S): [id number] ORDERING CLINICIAN: MARY SCHNEIDER TECHNIQUE: INTERVENTIONALIST(S): MD Juan Elena MD CONSENT: [...] intravenous fentanyl 50mcg and versed 0.5mg from 4795-0170. The physician was assisted by an independent [...] PET. COMPARISON: PET-CT dated 03/27/2024 ACCESSION NUMBER(S): [id number] ORDERING CLINICIAN: MARY SCHNEIDER TECHNIQUE: INTERVENTIONALIST(S): MD Juan Elena MD CONSENT: [...] intravenous fentanyl 50mcg and versed 0.5mg from 5490-4089. The physician was assisted by an independent [...] findings as stated. Performed and dictated at [facility]. MACRO: None. Signed by: Gaby Perez 06/05/2024 9:02 PM Dictation workstation: [id number] [facility] Work Phone: Radiology Study observation (narrative) [facility] Work Phone: US guidance for percutaneous biopsy of Lymph nodeOrdered By: Gaby Perez on 06-05-2024 [facility] Work Phone: NM TRANSFER OF OUTSIDE FILMS on 05-15-2024 NM TRANSFER OF OUTSIDE FILMS Outside images for comparison or treatment purposes, not interpreted by Radiologists. Normal [facility] Study Interpretation of outs romina studyon 05-15-2024 Outside images for comparison or treatment purposes, not interpreted by Radiologists. IMAGING Blood type and Indirect anti body screen panel (Bld)on 05-11-2024 ABO group Nom (Bld) A [facility] Blood group antibody screen Ql Negative [facility] D Ag Ql (Bld) Positive [facility] ABO group Nom (Bld) A Normal [facility] Comment on above: Order Comment: Patie nt admitted for surgery associated with significant blood loss OR per blood bank request. Performed By: #### 3 4532-2 #### TING Escalante ([id number]) [facility] ([facility]) [address] [place] [address] Blood group antibody screen Ql Negative Normal [facility] Comment on above: Order Comment: Patie nt admitted for surgery associated with significant blood loss OR per blood bank request. Performed By: #### 3 4532-2 #### TING Escalante ([id number]) [facility] ([facility]) [address] [place] [address] D Ag Ql (Bld) Positive [facility] Comment on above: Order Comment: Patie nt admitted for surgery associated with significant blood loss OR per blood bank request. Performed By: #### 3 4532-2 #### TING Escalante ([id number]) [facility] ([facility]) [address] [place] [address] Glucose Test strip manual (B ld) [Mass/Vol]on 05-11-2024 Glucose [Mass/Vol] 128 mg/dL High 74 - 99 mg/dL [facility] Interpretation and review of laboratory results Abnormal [facility] Glucose [Mass/Vol] 128 mg/dL High 74-99 [facility] Comment on above: Performed By: #### 2 341-6 #### TING Escalante ([id number]) [facility] ([facility]) [address] [place] [address] Glucose [Mass/Vol] 120 mg/dL High 74 - 99 mg/dL [facility] Comment on above: RN NOTIFIED Interpretation and review of laboratory results Abnormal [facility] Glucose [Mass/Vol] 120 mg/dL High 74-99 [facility] Comment on above: Result Comment: BORIS Tripp OTIFIED Performed By: #### 2 341-6 #### TING Escalante ([id number]) [facility] ([facility]) [address] [place] [address] Surgical pathology studyon 1 07-12-2023 Surgical pathology study Pathology report.total SEE COMMENT Surgical Pathology Case: [id number] Authorizing Provider: Mary Schneider MD Collected: 05/11/2024801 Ordering Location: [facility] Received: 05/11/2024 08 [facility] Pathologist: Asuncion Quintanilla MD PhD Intraop: Carmel [...] at 8:21 am Reported to: Dr. Mary Schneider Intraoperative Diagnosis: FSA1: At least high-grade squamous dysplasia/carcinoma in situ. Intraoperative Consult Pathologist(s): Carmel Patel MD B. Received Date and Time: 05/11/2024 at 8:22 am - Called Date and Time: 05/11/2024 at 8:45 am Reported to: Dr. Mary Schneider Intraoperative Diagnosis: FSB1: At least high-grade squamous dysplasia/carcinoma in situ with areas suspicious for invasion. Intraoperative Consult Pathologist(s): Carmel Patel MD x ray consultant: Dr. Alessandro Arzate. [facility] AP ASR DISCLAIMER One or more of the reagents used to perform assays on this specimen MAY have contained components considered to be analyte specific reagents (ASR's). ASR's have not been cleared or approved by the U.S. Food and Drug Administration. These assays were developed and their performance characteristics determined by the Department of Pathology at [facility]. The FDA does not require this test [...] and negative controls which stained appropriately. 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 Comment on above: Performed By: #### V ERAB #### TING Escalante ([id number]) [facility] ([facility]) [address] [place] [address] D Ag Ql (Bld) Positive Normal [facility] Comment on above: Performed By: #### V ERAB #### TING Escalante ([id number]) [facility] ([facility]) [address] [place] [address] Verify ABO/Rh Group Test (VE RAB)on 05-11-2024 ABO group Nom (Bld) A [facility] D Ag Ql (Bld) Positive [facility] Office Visiton 04-25-2024 Follow-up visit [id number] Yaritza [address] P 1940 M Date Provider Department Center 04/25/2024 STACEY ERNANDEZ [facility] Family History Problem Relation Age of Onset Coronary artery disease Mother Kidney disease Mother Heart failure Mother Family Status - Relation Status Age at Mother Level of Service:66210 ND OFFICE/OUTPATIENT NEW MODERATE MDM 45 MINUTES Normal [facility] Ambulatory Visit Summaryon 1 06-18-2023 Ambulatory Visit Summary Ambulatory Visit Summary JEREMIE BENNETT :1940 Visit Date:04/17/2024 Ambulatory Visit Instructions Your Diagnosis Type 2 diabetes mellitus with hypercholesterolemia BMI 30.0-30.9,adult Exogenous obesity Former smoker Chronic GERD Coronary artery disease 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 Hypercholesterolemia Primary hypertension [...] Tab) fluticasone nasal (fluticasone Nasal 0.05 mg/inh [employer]) furosemide (furosemide 20 mg Tab) irbesartan (irbesartan [...] Appointments Wednesday 2:30 PM EDT With: Where: [address] [address]- Wednesday 3:30 PM EDT With: Hermes CASON, Demetrius Rosa Where: [address] [address]- Medications What How Much When [...] fluticasone nasal (fluticasone Nasal 0.05 mg/ inh [employer]) See instructions USE 1 SPRAY IN BOTH [...] By Mouth Every day Unchanged Misc Prescription ([facility] Prescription) See instructions one touch ultra test strips test sugars once a day Unchanged Misc Prescription ([facility] Prescription) See instructions one touch ultra [...] currently receivin (more content not included)... Normal [facility] CBC w/ Auto Diffon 4 Basophils/100 WBC (Bld) 0.8 % Normal 0.0-2.0 [facility] Comment on above: Performed By: #### 2 [id number] #### [facility] [address] [place] [address] Basophils/Leukocytes Auto (Bld) [Pure # fraction] 0.1 E9/L Normal 0.0-0.2 [facility] Comment on above: Performed By: #### 2 [id number] #### [facility] [address] [place] [address] Eosinophils (Bld) [#/Vol] 0.4 E9/L Normal 0.0-0.5 [facility] Comment on above: Performed By: #### 2 048050 #### [facility] [address] [place] [address] Eosinophils/100 WBC (Bld) 4.6 % Normal 0.0-8.0 [facility] Comment on above: Performed By: #### 2 453007 #### [facility] [address] [place] [address] Erythrocyte distribution width (RBC) [Ratio] 14.0 % Normal 10.9-14.2 [facility] Comment on above: Performed By: #### 2 507550 #### [facility] [address] [place] [address] Hematocrit (Bld) [Volume fraction] 43.7 % Normal 37.7-49.0 [facility] Comment on above: Performed By: #### 2 428321 #### [facility] [address] [place] [address] Hemoglobin (Bld) [Mass/Vol] 14.5 g/dL Normal 13.5-17.5 [facility] Comment on above: Performed By: #### 2 685318 #### [facility] [address] [place] [address] Lymphocytes (Bld) [#/Vol] 2.0 E9/L Normal 1.0-4.0 [facility] Comment on above: Performed By: #### 2 136802 #### [facility] [address] [place] [address] Lymphocytes/100 WBC (Bld) 22.4 % Normal 14.0-50.0 [facility] Comment on above: Performed By: #### 2 634946 #### [facility] [address] [place] [address] MCH (RBC) [Entitic mass] 31.2 pg Normal 27.0-34.0 [facility] Comment on above: Performed By: #### 2 813692 #### [facility] [address] [place] [address] MCHC (RBC) [Mass/Vol] 33.2 g/dL Normal 31.4-36.0 [facility] Comment on above: Performed By: #### 2 759201 #### [facility] [address] [place] [address] MCV (RBC) [Entitic vol] 94.2 fL Normal 80.0-100.0 [facility] Comment on above: Performed By: #### 2 708830 #### [facility] [address] [place] [address] Monocytes (Bld) [#/Vol] 0.7 E9/L Normal 0.2-1.0 [facility] Comment on above: Performed By: #### 2 001021 #### [facility] [address] [place] [address] Neutrophils (Bld) [#/Vol] 5.7 E9/L Normal 2.0-7.5 [facility] Comment on above: Performed By: #### 2 744047 #### [facility] [address] [place] [address] Neutrophils/100 WBC (Bld) 64.7 % Normal 36.0-75.0 [facility] Comment on above: Performed By: #### 2 444009 #### [facility] [address] [place] [address] Platelet mean volume (Bld) [Entitic vol] 9.2 fL Normal 6.4-10.8 [facility] Comment on above: Performed By: #### 2 207529 #### [facility] [address] [place] [address] Platelets (Bld) [#/Vol] 243.0 E9/L Normal 150.0-500. 0 [facility] Comment on above: Performed By: #### 2 915186 #### [facility] [address] [place] [address] RBC (Bld) [#/Vol] 4.6 E12/L Normal 4.3-5.9 [facility] Comment on above: Performed By: #### 2 540055 #### [facility] [address] [place] [address] WBC corrected for nucl RBC Auto (Bld) [#/Vol] 8.9 E9/L Normal 4.0-11.0 [facility] Comment on above: Performed By: #### 2 491321 #### [facility] [address] [place] [address] CHEMISTRYOrdered By: SYSTEM SYSTEM on 04-17-2024 Albumin [...] (Bld) [Mass fraction] 6.5 % High <=5.9% [facility] ChemAutoSS CMPon 04-17-2024 Albumin [Mass/Vol] 4.3 g/dL Normal 3.3-5.0 [facility] Comment on above: Performed By: #### 2 850400 #### [facility] [address] [place] [address] Albumin/Globulin (S) [Mass conc ratio] 1.7 Normal 1.1-2.2 [facility] Comment on above: Performed By: #### 2 926815 #### [facility] [address] [place] [address] ALP [Catalytic activity/Vol] 82 Int._Unit/L Normal 21-98 [facility] Comment on above: Performed By: #### 2 993922 #### [facility] [address] [place] [address] ALT No additional P-5'-P [Catalytic activity/Vol] 17 Int._Unit/L Normal 6-46 [facility] Comment on above: Performed By: #### 2 106218 #### [facility] [address] [place] [address] Anion gap [Moles/Vol] 10 mmol/L Normal 6-16 [facility] Comment on above: Performed By: #### 2 081627 #### [facility] [address] [place] [address] AST [Catalytic activity/Vol] 18 Int._Unit/L Normal 5-43 [facility] Comment on above: Performed By: #### 2 051676 #### [facility] [address] [place] [address] Bilirubin [Mass/Vol] 0.6 mg/dL Normal 0.0-1.[address] [facility] Comment on above: Performed By: #### 2 230968 #### [facility] [address] [place] [address] Calcium [Mass/Vol] 9.7 mg/dL Normal 8.9-11.1 [facility] Comment on above: Performed By: #### 2 430356 #### [facility] [address] [place] [address] Chloride [Moles/Vol] 108 mmol/L Normal 101-[address] [facility] Comment on above: Performed By: #### 2 010303 #### [facility] [address] [place] [address] CO2 [Moles/Vol] 27 mmol/L Normal 21-31 [facility] Comment on above: Performed By: #### 2 563784 #### [facility] [address] [place] [address] Creatinine [Mass/Vol] 1.0 mg/dL Normal 0.5-1.3 [facility] Comment on above: Performed By: #### 2 213495 #### [facility] [address] [place] [address] Globulin (S) [Mass/Vol] 2.5 g/dL Normal 1.4-4.0 [facility] Comment on above: Performed By: #### 2 439750 #### [facility] [address] [place] [address] Glucose [Mass/Vol] 145 mg/dL Normal 55-199 [facility] Comment on above: Performed By: #### 2 016534 #### [facility] [address] [place] [address] Potassium [Moles/Vol] 4.2 mmol/L Normal 3.5-5.3 [facility] Comment on above: Performed By: #### 2 882783 #### [facility] [address] [place] [address] Protein [Mass/Vol] 6.8 g/dL Normal 6.0-7.8 [facility] Comment on above: Performed By: #### 2 917914 #### [facility] [address] [place] [address] Sodium [Moles/Vol] 141 mmol/L Normal 135-145 [facility] Comment on above: Performed By: #### 2 279367 #### [facility] [address] [place] [address] Urea nitrogen [Mass/Vol] 22 mg/dL High 5-21 [facility] Comment on above: Performed By: #### 2 961901 #### [facility] [address] [place] [address] Urea nitrogen/Creatinine [Mass ratio] 22 No Units High 10-20 [facility] Comment on above: Performed By: #### 2 012426 #### [facility] [address] [place] [address] Family Medicine Office/Clini c Noteon 04-17-2024 Family [...] a referral to Dr. Marlene Schneider in [place] for further evaluation. The patient has a [...] or previously received 4274F Lab Specimen Collect 96644 Microalbumin Level Urine Most recent diastolic blood [...] or previously received 4274F Lab Specimen Collect 39037 Microalbumin Level Urine Most recent diastolic blood [...] or previously received 4274F Lab Specimen Collect 80730 Microalbumin Level Urine Most recent diastolic blood pressure <80 mm Hg 3078F Patient screen for fall risk: no falls in last year or 1 fall with no injury in last year 1101F Systolic BP <130 mm Hg (Most Recent) 3074F 4. Former smoker (Z87.891: Personal history of nicotine dependence) Please continue not to smoke. Ordered: influe (more content not included)... Normal [facility] Comment on above: Result Comment: Elec tronically Signed By: Hermes CASON, Demetrius Rosa\.br\Date and Time Signed: 04/17/24 [...] Normal 4.0 - 11.0 E9/L Remisol Heme YefG3mlx 04-17-2024 HbA1c (Bld) [Mass fraction] 6.5 % High <=5.9 [facility] Comment on above: Performed By: #### 7 [id number] #### [facility] [address] [place] [address] U Microalbon 04-17-2024 Albumin DL <= 20 mg/L (U) [Mass/Vol] 0.7 mg/dL Normal 0.0-1.9 [facility] Comment on above: Performed By: #### 1 [id number] #### [facility] [address] [place] [address] eGFRon 04-17-2024 eGFR 74 mL/min/1.73 m2 Normal >=59 [facility] Comment on above: Performed By: #### 1 [id number] #### [facility] [address] [place] [address] Basic metabolic 2000 panelon 04-11-2024 Anion gap [Moles/Vol] 15 mmol/L Normal 10-20 [facility] Comment on above: Performed By: #### 2 4321-2 #### TING EARLYER L (95787) [facility] ([facility]) [address] [place] [address] 22035 Calcium [Mass/Vol] 9.9 mg/dL Normal 8.6-10.6 [facility] [place] Comment on above: Performed By: #### 2 4321-2 #### TING VICENTEMOTZER L (91766) [facility] ([facility]) [address] [place] [address] 32251 Chloride [Moles/Vol] 107 mmol/L Normal 98-107 [facility] Comment on above: Performed By: #### 2 4321-2 #### TING VICENTEMOTZER L (90325) [facility] ([facility]) [address] [place] [address] CO2 [Moles/Vol] 25 mmol/L Normal 21-32 [facility] Comment on above: Performed By: #### 2 4321-2 #### TING VICENTEMOTZER L (89157) [facility] ([facility]) [address] [place] [address] 28301 Creatinine [Mass/Vol] 0.96 mg/dL Normal 0.50-1.30 [facility] Comment on above: Performed By: #### 2 4321-2 #### TING VICENTEMOTZER L (89809) [facility] ([facility]) [address] [place] [address] 67518 Glomerular filtration rate/1.73 sq M.predicted 78 mL/min/1.73m*2 Normal >60 [facility] Comment on above: Result Comment: Calc ulations of estimated GFR are performed using the 2020 CKD-EPI Study Refit equation without the race variable for the IDMS-Traceable creatinine methods. https://jasn.asnjournals.org/content//ASN.52478 61357 Performed By: #### 2 4321-2 #### TING Escalante (47754) [facility] ([facility]) [address] [place] [address] 51245 Glucose [Mass/Vol] 109 mg/dL High 74-99 [facility] [place] Comment on above: Performed By: #### 2 4321-2 #### TING Escalante (70721) [facility] ([facility]) [address] [place] [address] 02133 Potassium [Moles/Vol] 4.5 mmol/L Normal 3.5-5.3 [facility] Comment on above: Performed By: #### 2 4321-2 #### TING Escalante (60749) [facility] ([facility]) [address] [place] [address] 78324 Sodium [Moles/Vol] 142 mmol/L Normal 136-145 [facility] [place] Comment on above: Performed By: #### 2 4321-2 #### TING Escalante (70184) [facility] ([facility]) [address] [place] [address] 25308 Urea nitrogen [Mass/Vol] 18 mg/dL Normal 6-23 [facility] Comment on above: Performed By: #### 2 4321-2 #### TING Escalante (22395) [facility] ([facility]) [address] [place] [address] 03432 CBC panel Auto (Bld)on 04-11 Erythrocyte distribution width (RBC) [Ratio] 13.3 % Normal 11.5-14.5 [facility] Comment on above: Performed By: #### 5 8410-2 #### TING VIEIRA L (05894) [facility] ([facility]) [address] [place] [address] 20198 Hematocrit (Bld) [Volume fraction] 45.5 % Normal 41.0-52.0 [facility] Comment on above: Performed By: #### 5 8410-2 #### TING Escalante (33822) [facility] ([facility]) [address] [place] [address] 86873 Hemoglobin (Bld) [Mass/Vol] 14.5 g/dL Normal 13.5-17.5 [facility] Comment on above: Performed By: #### 5 8410-2 #### TING Escalante (11019) [facility] ([facility]) [address] [place] [address] 11643 MCH (RBC) [Entitic mass] 30.1 pg Normal 26.0-34.0 [facility] Comment on above: Performed By: #### 5 8410-2 #### TING Escalante (38890) [facility] ([facility]) [address] [place] [address] 16163 MCHC (RBC) [Mass/Vol] 31.9 g/dL Low 32.0-36.0 [facility] Comment on above: Performed By: #### 5 8410-2 #### TING Escalante (46842) [facility] ([facility]) [address] [place] [address] 47836 MCV (RBC) [Entitic vol] 94 fL Normal 80-100 [facility] Comment on above: Performed By: #### 5 8410-2 #### TING Escalante (03610) [facility] ([facility]) [address] [place] [address] 36085 Nucleated RBC/100 WBC (Bld) [Ratio] 0.0 /100 WBCs Normal 0.0-0.0 [facility] Comment on above: Performed By: #### 5 8410-2 #### TING Escalante (30177) [facility] ([facility]) [address] [place] [address] 89598 Platelets (Bld) [#/Vol] 254 x10*3/uL Normal 150-450 [facility] Comment on above: Performed By: #### 5 8410-2 #### TING Escalante (10309) [facility] ([facility]) [address] [place] [address] RBC (Bld) [#/Vol] 4.82 x10*6/uL Normal 4.50-5.90 [facility] Comment on above: Performed By: #### 5 8410-2 #### TING VIEIRA L (24590) [facility] ([facility]) [address] [place] [address] WBC (Bld) [#/Vol] 8.5 x10*3/uL Normal 4.4-11.3 [facility] Comment on above: Performed By: #### 5 8410-2 #### TING NNEKAER L (72314) [facility] ([facility]) [address] [place] [address] Surgical pathology studyon 1 06-07-2023 Surgical pathology study Pathology report.total SEE COMMENT Surgical Pathology Case: [id number] Authorizing Provider: Mary Schneider MD Collected: 04/07/2024 1137 Ordering Location: [facility] Received: 04/07/2024 1145 Pathologist: Alessandro Arzate DDS [...] PAS is negative for heart fungal organisms. x ray consultant: Dr. Jose Leary. Laboratory comment By [...] is submitted in toto in one cassette. [facility] GLUCOSE, BLOOD (POC)on 03-27 Glucose [Mass/Vol] 113 mg/dL Abnormal 74 - 99 mg/dL [facility] Comment on above: Location:[facility], [address] [place] [address] Dr. [place], [place], [address] The Accu-Chek Inform II glucose meter has [...] Interpretation and review of laboratory results Abnormal [facility] NM PET/CT SKULL-THIGH INITon 03-27-2024 [...] * Uptake Time: 61 minutes * Radiopharmaceutical: A98-Ykdxyqsdvmxepzbxbl (FDG) COMPARISON: No previous FDG PET/CT available [...] of you (more content not included)... Normal [facility] Ambulatory Visit Summaryon 1 05-23-2023 Ambulatory Visit Summary Ambulatory Visit Summary JEREMIE BENNETT :1940 Visit Date:03/23/2024 Ambulatory Visit Instructions Your Diagnosis Pancreatic cyst RUQ pain Bloating Chronic GERD History of colon polyps Your Care Team Attending Physician - Beatriz CASON, Inez Funes Primary Care Physician - Hermes CASON, Demetrius Rosa This Is Your Medications [...] Tab) fluticasone nasal (fluticasone Nasal 0.05 mg/inh [employer]) furosemide (furosemide 20 mg Tab) irbesartan (irbesartan [...] Wednesday 10:00 AM EST With: Hermes CASON, Demetrius Rosa Where: [address] [phone]- Wednesday 2:30 PM EDT With: Where: [address] [id number]- Medications What How Much When Instructions Unchanged [...] fluticasone nasal (fluticasone Nasal 0.05 mg/ inh [employer]) See instructions USE 1 SPRAY IN BOTH [...] (Misc Medication (more content not included)... Normal [facility] Gastroenterology Office/Clin ic Noteon 03-23-2024 Gastroenterology Office/Clinic [...] sidebranch IPMN- 04/[address] Aguilar @ [facility] Repeat MRCP 02/2024 2. RUQ pain [...] Salomón Villarreal Lymph node bx 02/29/24 @ [facility]: A, right cervical lymph node, core biopsy: [...] spondylosis Chronic GERD Coronary artery disease 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 Diabetic autonomic neuropathy [...] pacemaker proced (more content not included)... Normal [facility] Comment on above: Result Comment: Elec tronically Signed By: Beatriz CASON, Inez Funes\.marco a\Date and Time Signed: 03/23/24 14:49 EST Obdulio 02-29-2024 L Specimen: [id number] Received: 02/29/24 Status: LISA Kirby Num: [id number] Spec Type: Surgical Subm Dr: LUC HAM [...] Account Attending Physician Jeremie Bennett 83/M LABELL [id number] LUC HAM MD SPEC NUM: [id number] RECD: 02/29/24 STATUS: LISA KIRBY NUM: [id number] DONTRELL: 02/29/24 DR: LUC HAM MD ENTERED: 02/29/[address] [facility] DR: Myra Templeton SPEC TYPE: Surgical DEPT: MANNY MONTEZ ENTERED BY: [id number] RECV BY: [id number] ORDERED: S 100, Mucicarmine, HE/6, Gross/Micro L4/2, CK5 6, CK20, CK 7, NAPSIN A, CINtec p16, TTF1, NKX3.1, MOC31, GATA3, p40, DIFF QWIK ORDERED: S 100, Mucicarmine, HE/6, Gross/Micro L4/2, CK5 6, CK20, CK 7, NAPSIN A, CINtec p16, TTF1, USS/4, NKX3.1, MOC31, GATA3, p40, DIFF QWIK Supplemental Report Addendum 1 Entered: 03/04/24-7803 Supplemental for findings of flow cytometry analysis (Part B) from [facility] -The flow cytometry test is canceled, due to insufficient cellularity / insufficient lymphocytes Addendum Signed (signature on file) Tae Sanchez MD 03/04/24 1035 Pathological Diagnosis A, right cervical lymph node, core biopsy: -Positive for metastatic carcinoma, 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 Note: Specimen: [id number] Received: 02/29/24 Status: LISA Kirby Num: [id number] Spec Type: Surgical Subm Dr: LUC HAM MD Tissues: A Lymph Node - Biopsy (Needle or Incisional) (RT CERVICAL LYMPH NODE) B Lymph Node - Biopsy (Needle or Incisional) (RT CERVICAL LYMPH NODE-SALIN) Procedures: S 100, Mucicarmine, HE/6, Gross/Micro L4/2, CK5 6, CK20, CK 7, NAPSIN A, CINtec p16, TTF1, NKX3.1, MOC31, GATA3, p40, DIFF QWIK Patient: Jeremie Bennett [id number] (Continued) Specimen: [id number] Received: 02/29/24 (Continued) Pathological Diagnosis (Continued) Signed (signature on file) ChinYazmin Sanchez MD 03/04/24 1033 Specimen: [id number] Received: 02/29/24 Status: LISA Kirby Num: [id number] Spec Type: Surgical Subm Dr: LUC HAM MD Tissues: A Lymph Node - Biopsy (Needle or Incisional) (RT CERVICAL LYMPH NODE) B Lymph Node - Biopsy (Needle or Incisional) (RT CERVICAL LYMPH NODE-SALIN) Procedures: S 100, Mucicarmine, HE/6, Gross/Micro L4/2, CK5 6, CK20, CK 7, NAPSIN A, CINtec p16, TTF1, NKX3.1, MOC31, GATA3, p40, DIFF QWIK Patient: Jeremie Bennett [id number] (Continued) Specimen: [id number] Received: 02/29/24-1519 (Continued) Pathological Diagnosis (Continued) -The [...] c (more content not included)... Normal [facility] CT SOFT TISSUE NECK W [...] Comment: CT S/ T Neck W at [facility]. Please call patient to schedule. Itz 02-02-2024 CNPN Telephone ([facility]) ----- JEREMIE BENNETT ([id number]) 1940 M Date Time Provider Department 02/02/24 VAISHALI PRINGLE [facility] During your visit today, we recorded [...] and it was completed in 12/2023 at [facility]. Our office will request results for Dr. Pringle's review. Follow up will be determined upon Dr. Pringle's review of results. Carlitos Beckman 02/04/2024 9:19 AM Signed Surveillance imaging completed at OSH for IPMN surveillance. Carlitos Beckman 02/07/2024 9:31 AM Signed IPMN surveillance. 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 - omeprazole (PRILOSEC) 40 mg capsule Take [...] (None) Encounter Status:Closed by CARLITOS BECKMAN on 10/4/24 [facility] Ambulatory Visit Summaryon 0 02-01-2024 Ambulatory Visit [...] Tab) fluticasone nasal (fluticasone Nasal 0.05 mg/inh [employer]) furosemide (furosemide 20 mg Tab) irbesartan (irbesartan [...] EST With: Beatriz CASON, Inez Funes Where: [facility] [address] [facility] [address] [place] [address]- Wednesday 10:00 AM EST With: Hermes CASON, Demetrius Rosa Where: [address] [phone]- Wednesday 2:30 PM EDT With: Where: [address] [address]- Medications What How Much When Why Instructions [...] fluticasone nasal (fluticasone Nasal 0.05 mg/ inh [employer]) See instructions USE 1 SPRAY IN BOTH [...] See instructions (more content not included)... Normal [facility] Family Medicine Office/Clini c Noteon 02-01-2024 Family [...] the lymphnodes has not changed. - Seeing Litzy later today. - Follow up PRN 2. [...] BID, # 20 cap(s), Refills(s) 0, Pharmacy: [facility] #[id number], 160, cm, 01/10/24 9:43:00 EDT, Height/Length Dosing, 77.8, kg, 01/10/24 9:43:00 EDT, Weight Dosing Follow-up No qualifying data available Problem List/Past Medical History Ongoing BMI 29.0-29.9,adult Cervical lymphadenopathy Cervical spondylosis Chronic GERD Coronary artery disease 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 Diabetic autonomic neuropathy [...] PRN, 1 refills fluticasone Nasal 0.05 mg/inh [employer], See Instructions furosemide 20 mg Tab, 20 [...] change: No. Household alcohol concerns: No., 11/08/2023 [facility] (more content not included)... Normal [facility] Comment on above: Result [...] mg Tab) fluticasone nasal (Flonase 0.05 mg/inh [place]) furosemide (furosemide 20 mg Tab) irbesartan (irbesartan [...] AM EDT With: Demetrius Cooper MD Where: [address] [address]- 2023 2:45 PM EST With: Inez Henderson MD Where: [address] [place] [address]- Wednesday 10:00 AM EST With: Demetrius Cooper MD Where: [address] [address]- Wednesday 2:30 PM EDT With: Where: [address] [address]- Medications What How Much When Why Instructions [...] Unchanged fluticasone nasal (Flonase 0.05 mg/ inh [place]) 1 Sprays Nasal Inhalation 2 times a [...] By Mouth Every day Unchanged Misc Prescription ([facility] Prescription) See instructions one touch ultra test strips test sugars once a day Unchanged Misc Prescription ([facility] Prescription) See instructions one touch ultra lancets Use to test sugars once a day Unchanged multivitamin with minerals (Multivitamin, Therapeutic w/ Minerals) By Mouth Every day Unchanged Non-Formulary Medication ([facility] Medication) Transdermal Therapeutics up to four times [...] zonisamide (z (more content not included)... 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 Normal [facility] Comment on above: Result Comment: Elec tronically Signed By: Hermes CASON, Demetrius Branham.marco a\Date and Time Signed: 01/10/24 10:38 EDT CNPNon 04-05-2023 CNPN Telephone ([id number]) ----- JEREMIE BENNETT ([id number]) 1940 M Date Time Provider Department 04/05/23 VAISHALI PRINGLE [id number] During your visit today, we recorded the following information about you: Lolly Dumont 04/05/2023 9:55 AM Signed Received records from [facility]. Reports for imaging listed below scanned. 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 - clopidogrel (PLAVIX) 75 mg tablet - furosemide (LASIX) 20 mg tablet Take 20 mg by mouth. - fluticasone (FLONASE) 50 mcg/actuation nasal spray 1 Keaton. - omeprazole (PRILOSEC) 40 mg capsule Take [...] Encounter Status:Closed by LAMONTE COUCH on 04/06/23 [facility] CNOVnnamdi 04-01-2023 OV Office Visit ([id number] ) ----- JEREMIE BENNETT ([id number]) 1940 M Date Time Provider Department 04/01/23 1:00 PM VAISHALI PRINGLE [id number] During your visit today, we recorded the [...] GI re (more content not included)... Normal [facility] CHEMISTRYOrdered By: SYSTEM SYSTEM on 03-10-2023 Albumin [...] 67 mL/min/1.73 m2 Normal >=59mL/min /1.73 m2 [facility] Chem S Comment on above: Interpretive Data: [...] Negative 3 (03/10/23 12:45 PM) Normal Negative [facility] Man Sero Comment on above: Interpretive Data: T he semi-quantitative detection of elevated levels of fecal lactoferrin is a marker for fecal leukocytes and an indication of intestinal inflammation. CHEMISTRYOrdered By: Yash Shah on 11-23-2022 Albumin DL <= 20 mg/L (U) [Mass/Vol] microgram/mL Normal 0.0 - 19.0 mcg/mL [facility] Remisol Albumin Elph (U) [Mass fraction] mg/dL Invalid Interpretation Code [facility] Remisol Creatinine (U) [Mass/Vol] 15.9 mg/dL Invalid Interpretation Code [facility] Chem S U Prot/Creat Ratio UTC Invalid Interpretation Code 0.00 - 200.00 [facility] Chem S Comment on above: Result Comment: Unab le to calculate due to Protein being less than analyzer reportable range. CBC AUTO DIFFon 09-29-2022 BASO # 0.1 103/ul Normal 0.0-0.1 [facility] Comment on above: Performed By: #### C BC #### [facility] [address] [address] [address] Ramsey Sanchez Basophils/100 WBC (Bld) 0.7 % Normal 0.2-2.0 [facility] Comment on above: Performed By: #### C BC #### [facility] [address] [address] [address] Ramsey Sanchez EO # 0.2 103/ul Normal 0.0-0.7 [facility] Comment on above: Performed By: #### C BC #### [facility] [address] [place] [address] Dr. Ramsey Sanchez Eosinophils/100 WBC (Bld) 1.5 % Normal 0.9-7.0 [facility] Comment on above: Performed By: #### C BC #### [facility] [address] [place] [address] Dr. Ramsey Sanchez Erythrocyte distribution width (RBC) [Ratio] 13.6 % Normal 11.0-15.0 [facility] Comment on above: Performed By: #### C BC #### [facility] [address] [place] [address] Dr. Ramsey Sanchez Hematocrit (Bld) [Volume fraction] 43.5 % Normal 42.0-54.0 [facility] Comment on above: Performed By: #### C BC #### [facility] [address] [place] [address] Dr. Ramsey Sanchez Hemoglobin (Bld) [Mass/Vol] 13.9 g/dL Critically low 14.0-18.0 [facility] Comment on above: Performed By: #### C BC #### [facility] [address] [place] [address] Dr. Ramsey Sanchez IG # 0.29 10e3/ul Critically high 0.00-0.03 [facility] Comment on above: Performed By: #### C BC #### [facility] [address] [place] [address] Dr. Ramsey Sanchez IG % 2.9 % Critically high 0.0-0.5 [facility] Comment on above: Performed By: #### C BC #### [facility] [address] [place] [address] Dr. Ramsey Sanchez LYMPH # 2.1 103/ul Normal 1.2-3.8 [facility] Comment on above: Performed By: #### C BC #### [facility] [address] [place] [address] Dr. Ramsey Sanchez Lymphocytes/100 WBC (Bld) 20.8 % Normal 20.5-60.0 [facility] Comment on above: Performed By: #### C BC #### [facility] [address] [place] [address] Dr. Ramsey Sanchez MANUAL DIFF REQ NO Normal [facility] Comment on above: Performed By: #### C BC #### [facility] [address] [place] [address] Dr. Ramsey Sanchez MCH (RBC) [Entitic mass] 29.6 pg Normal 25.9-34.0 [facility] Comment on above: Performed By: #### C BC #### [facility] [address] [place] [address] Dr. Ramsey Sanchez MCHC (RBC) [Mass/Vol] 32.0 g/dL Normal 29.9-35.2 [facility] Comment on above: Performed By: #### C BC #### [facility] [address] [place] [address] Dr. Ramsey Sanchez MCV (RBC) [Entitic vol] 92.6 fL Normal 80.0-94.0 [facility] Comment on above: Performed By: #### C BC #### [facility] [address] [place] [address] Dr. Ramsey Sanchez MONO # 0.8 103/ul Normal 0.3-0.8 [facility] Comment on above: Performed By: #### C BC #### [facility] [address] [place] [address] Dr. Ramsey Sanchez Monocytes/100 WBC (Bld) 8.3 % Normal 1.7-12.0 [facility] Comment on above: Performed By: #### C BC #### [facility] [address] [place] [address] Dr. Ramsey Sanchez NEUT # 6.5 103/ul Normal 1.4-6.5 [facility] Comment on above: Performed By: #### C BC #### [facility] [address] [place] [address] Dr. Ramsey Sanchez Neutrophils/100 WBC (Bld) 65.8 % Normal 43.0-75.0 [facility] Comment on above: Performed By: #### C BC #### [facility] [address] [place] [address] Dr. Ramsey Sanchez Platelet mean volume (Bld) [Entitic vol] 11.1 fL Normal 9.5-13.5 [facility] Comment on above: Performed By: #### C BC #### [facility] [address] [place] [address] Dr. Ramsey Sanchez PLT 198 103/ul Normal 150-450 [facility] Comment on above: Performed By: #### C BC #### [facility] [address] [place] [address] Dr. Ramsey Sanchez RBC 4.70 106/ul Normal 4.70-6.10 [facility] Comment on above: Performed By: #### C BC #### [facility] [address] [place] [address] Dr. Ramsey Sanchez WBC 9.9 103/ul Normal 4.0-11.0 [facility] Comment on above: Performed By: #### C BC #### [facility] [address] [place] [address] Dr. Ramsey Sanchez ER URINE PROFILEon 3 Bilirubin Ql (U) Negative Normal NEGATIVE [facility] Comment on above: Performed By: #### E RUR #### [facility] [address] [place] [address] Dr. Ramsey Sanchez Clarity (U) CLEAR Normal CLEAR [facility] Comment on above: Performed By: #### E RUR #### [facility] [address] [place] [address] Dr. Ramsey Sanchez Color (U) YELLOW Normal YELLOW [facility] Comment on above: Performed By: #### E RUR #### [facility] [address] [place] [address] Dr. Ramsey IVORY A micrscopic examina tion will be performed if indicated. Normal [facility] Comment on above: Performed By: #### E RUR #### [facility] [address] [place] [address] Dr. Ramsey Sanchez Glucose Ql (U) Negative Normal NEGATIVE [facility] Comment on above: Performed By: #### E RUR #### [facility] [address] [place] [address] Dr. Ramsey Sanchez Hemoglobin Ql (U) Negative Normal NEGATIVE [facility] Comment on above: Performed By: #### E RUR #### [facility] [address] [place] [address] Dr. Ramsey Sanchez Ketones Ql (U) Negative Normal NEGATIVE [facility] Comment on above: Performed By: #### E RUR #### [facility] [address] [place] [address] Dr. Ramsey Sanchez LEUKOCYTES Negative Normal NEGATIVE [facility] Comment on above: Performed By: #### E RUR #### [facility] [address] [place] [address] Dr. Ramsey Sanchez Nitrite Ql (U) Negative Normal NEGATIVE [facility] Comment on above: Performed By: #### E RUR #### [facility] [address] [place] [address] Dr. Ramsey Sanchez pH (U) 5.5 [pH] Normal 5-9 [facility] Comment on above: Performed By: #### E RUR #### [facility] [address] [place] [address] Dr. Ramsey Sanchez SPEC GRAVITY 1.020 Normal 1.005-<=1. 025 [facility] Comment on above: Performed By: #### E RUR #### [facility] [address] [place] [address] Dr. Ramsey Sanchez UA PROTEIN Negative Normal NEGATIVE/ TRACE [facility] Comment on above: Performed By: #### E RUR #### [facility] [address] [place] [address] Dr. Ramsey Sanchez UR MICRO IND NOT INDICATED Normal [facility] Comment on above: Performed By: #### E RUR #### [facility] [address] [place] [address] Dr. Ramsey Sanchez Urobilinogen Qn (U) 0.2 {Leatha'U}/dL Normal 0.2 - 1. 0 [facility] Comment on above: Performed By: #### E RUR #### [facility] [address] [place] [address] Dr. Ramsey Sanchez LACTATE/LACTIC ACIDon 2022 Lactate [Moles/Vol] 1.7 mmol/L Normal 0.4-2.0 [facility] Comment on above: Performed By: #### L ACT #### [facility] [address] [place] [address] Dr. Ramsey Sanchez PROF 14(COMP METB)on 023 Albumin [Mass/Vol] 3.1 g/dL Critically low 3.4-5.0 [facility] Comment on above: Performed By: #### C LISANDRO, HSTROPN #### [facility] [address] [place] [address] Dr. Ramsey Sanchez Albumin/Globulin [Mass ratio] 0.8 {ratio} Normal [facility] Comment on above: Performed By: #### C MP, HSTROPN #### [facility] [address] [place] [address] Dr. Ramsey Sanchez ALP [Catalytic activity/Vol] 73 U/L Normal 46-116 [facility] Comment on above: Performed By: #### C LISANDRO, HSTROPN #### [facility] [address] [place] [address] Dr. Ramsey Sanchez ALT [Catalytic activity/Vol] 22 U/L Normal 16-63 [facility] Comment on above: Performed By: #### C MP, HSTROPN #### [facility] [address] [address] [address] Ramsey Sacnhez Anion gap [Moles/Vol] 13.5 mmol/L Normal [facility] Comment on above: Performed By: #### C MP, HSTROPN #### [facility] [address] [place] [address] Dr. Ramsey Sanchez AST [Catalytic activity/Vol] 26 U/L Normal 15-37 [facility] Comment on above: Performed By: #### C MP, HSTROPN #### [facility] [address] [place] [address] Dr. Ramsey Sanchez Bilirubin [Mass/Vol] 0.4 mg/dL Normal 0.2-1.0 [facility] Comment on above: Performed By: #### C MP, HSTROPN #### [facility] [address] [place] [address] Dr. Ramsey Sanchez Calcium [Mass/Vol] 8.4 mg/dL Critically low 8.5-10.1 [facility] Comment on above: Performed By: #### C MP, HSTROPN #### [facility] [address] [place] [address] Dr. Ramsey Sanchez Chloride [Moles/Vol] 107 mmol/L Normal 98-107 [facility] Comment on above: Performed By: #### C MP, HSTROPN #### [facility] [address] [place] [address] Dr. Ramsey Sanchez CO2 [Moles/Vol] 26.1 mmol/L Normal 21.0-32.0 [facility] Comment on above: Performed By: #### C MP, HSTROPN #### [facility] [address] [place] [address] Dr. Ramsey Sanchez Creatinine [Mass/Vol] 0.94 mg/dL Normal 0.70-1.30 [facility] Comment on above: Performed By: #### C MP, HSTROPN #### [facility] [address] [place] [address] Dr. Ramsey Sanchez EGFR-AF ALBANIAN >60 Normal >=60 [facility] Comment on above: Performed By: #### C MP, HSTROPN #### [facility] [address] [place] [address] Dr. Ramsey Sanchez EGFR-NON AF ALBANIAN >60 Normal >=60 [facility] Comment on above: Performed By: #### C MP, HSTROPN #### [facility] [address] [place] [address] Dr. Ramsey Sanchez Globulin (S) [Mass/Vol] 3.7 g/dL Normal [facility] Comment on above: Performed By: #### C MP, HSTROPN #### [facility] [address] [place] [address] Dr. Ramsey Sanchez Glucose [Mass/Vol] 118 mg/dL Critically high 74-106 [facility] Comment on above: Performed By: #### C MP, HSTROPN #### [facility] [address] [place] [address] Dr. Ramsey Sanchez Potassium [Moles/Vol] 3.6 mmol/L Normal 3.5-5.1 [facility] Comment on above: Performed By: #### C LISANDRO, HSTROPN #### [facility] [address] [place] [address] Dr. Ramsey Sanchez Protein [Mass/Vol] 6.8 g/dL Normal 6.4-8.[address] [facility] Comment on above: Performed By: #### C MP, HSTROPN #### [facility] [address] [place] [address] Dr. Ramsey Sanchez Sodium [Moles/Vol] 143 mmol/L Normal 136-[address] [facility] Comment on above: Performed By: #### C MP, HSTROPN #### [facility] [address] [place] [address] Dr. Ramsey Sanchez Urea nitrogen [Mass/Vol] 19.0 mg/dL Critically high 7.0-18.0 [facility] Comment on above: Performed By: #### C MP, HSTROPN #### [facility] [address] [id number] [address] Ramsey Sanchez Urea nitrogen/Creatinine [Mass ratio] 20.2 mg/mg Normal [facility] Comment on above: Performed By: #### C LISANDRO, HSTROPN #### [facility] [address] [address] [address] Ramsey Sanchez TROPONIN, HIGH SENSITIVITYon 09-29-2022 HSTROP 9.8 pg/mL Normal 4.0-76.1 [facility] Comment on above: Result Comment: CUT- OFF POINTS HAVE BEEN ESTABLISHED BASED ON THE FOURTH UNIVERSAL DEFINITIONS OF MYOCARDIAL INFARCTION. THE UPPER REFERENCE LIMIT (URL) OF TROPONIN, DEFINED THE 99TH PERCENTILE OF cTnI DISTRIBUTION IN A REFERENCE POPULATION, HAS BEEN CONFIRMED THE DECISION THRESHOLD FOR [place] DIAGNOSIS. Performed By: #### C LISANDRO, HSTROPN #### [facility] [address] [address] [address] Ramsey Sanchez XR CHEST 1 Von [...] hardware and overlying objects out of the [id number]. Electronically authenticated by: ALANNA CARLOS Date: 2022-09-29 16:37 Normal [facility] BNPon 09-25-2022 Natriuretic peptide B (Bld) [Mass/Vol] 720.0 pg/mL Normal <=1,800.0 [facility] Comment on above: Performed By: #### C XSTOOL #### [facility] [address] [place] [address] Dr. Ramsey Sanchez CARDIAC RAFI ADMITon 023 CK [Catalytic activity/Vol] 198 U/L Normal 39-308 [facility] Comment on above: Performed By: #### C XSTOOL #### [facility] [address] [place] [address] Dr. Ramsey Sanchez CK.MB [Mass/Vol] 2.62 ng/mL Normal <=3.60 [facility] Comment on above: Performed By: #### C XSTOOL #### [facility] [address] [place] [address] Dr. Ramsey Sanchez HSTROP 8.8 pg/mL Normal 4.0-76.1 [facility] Comment on above: Result Comment: CUT- OFF POINTS HAVE BEEN ESTABLISHED BASED ON THE FOURTH UNIVERSAL DEFINITIONS OF MYOCARDIAL INFARCTION. THE UPPER REFERENCE LIMIT (URL) OF TROPONIN, DEFINED THE 99TH PERCENTILE OF cTnI DISTRIBUTION IN A REFERENCE POPULATION, HAS BEEN CONFIRMED THE DECISION THRESHOLD FOR [place] DIAGNOSIS. Performed By: #### C XSTOOL #### [facility] [address] [place] [address] Dr. Ramsey Sanchez MARILYN 69 ng/mL Normal 16-96 [facility] Comment on above: Performed By: #### C XSTOOL #### [facility] [address] [place] [address] Dr. Ramsey Sanchez CBC AUTO DIFFon 09-25-2022 BASO # 0.0 103/ul Normal 0.0-0.1 [facility] Comment on above: Performed By: #### C BC #### [facility] [address] [place] [address] Dr. Ramsey Sanchez Basophils/100 WBC (Bld) 0.2 % Normal 0.2-2.0 [facility] Comment on above: Performed By: #### C BC #### [facility] [address] [place] [address] Dr. Ramsey Sanchez EO # 0.0 103/ul Normal 0.0-0.7 [facility] Comment on above: Performed By: #### C BC #### [facility] [address] [place] [address] Dr. Ramsey Sanchez Eosinophils/100 WBC (Bld) 0.1 % Critically low 0.9-7.0 [facility] Comment on above: Performed By: #### C BC #### [facility] [address] [place] [address] Dr. Ramsey Sanchez Erythrocyte distribution width (RBC) [Ratio] 14.0 % Normal 11.0-15.0 [facility] Comment on above: Performed By: #### C BC #### [facility] [address] [place] [address] Dr. Ramsey Sanchez Hematocrit (Bld) [Volume fraction] 45.4 % Normal 42.0-54.0 [facility] Comment on above: Performed By: #### C BC #### [facility] [address] [place] [address] Dr. Ramsey Sanchez Hemoglobin (Bld) [Mass/Vol] 14.4 g/dL Normal 14.0-18.0 [facility] Comment on above: Performed By: #### C BC #### [facility] [address] [place] [address] Dr. Ramsey Sanchez IG # 0.08 10e3/ul Critically high 0.00-0.03 [facility] Comment on above: Performed By: #### C BC #### [facility] [address] [place] [address] Dr. Ramsey Sanchez IG % 0.9 % Critically high 0.0-0.5 [facility] Comment on above: Performed By: #### C BC #### [facility] [address] [place] [address] Dr. Ramsey Sanchez LYMPH # 1.6 103/ul Normal 1.2-3.8 [facility] Comment on above: Performed By: #### C BC #### [facility] [address] [place] [address] Dr. Ramsey Sanchez Lymphocytes/100 WBC (Bld) 17.9 % Critically low 20.5-60.0 [facility] Comment on above: Performed By: #### C BC #### [facility] [address] [place] [address] Dr. Ramsey Sanchez MANUAL DIFF REQ NO Normal [facility] Comment on above: Performed By: #### C BC #### [facility] [address] [place] [address] Dr. Ramsey Sanchez MCH (RBC) [Entitic mass] 29.8 pg Normal 25.9-34.0 [facility] Comment on above: Performed By: #### C BC #### [facility] [address] [place] [address] Dr. Ramsey Sanchez MCHC (RBC) [Mass/Vol] 31.7 g/dL Normal 29.9-35.2 [facility] Comment on above: Performed By: #### C BC #### [facility] [address] [place] [address] Dr. Ramsey Sanchez MCV (RBC) [Entitic vol] 94.0 fL Normal 80.0-94.0 [facility] Comment on above: Performed By: #### C BC #### [facility] [address] [place] [address] Dr. Ramsey Sanchez MONO # 0.9 103/ul Critically high 0.3-0.8 [facility] Comment on above: Performed By: #### C BC #### [facility] [address] [place] [address] Dr. Ramsey Sanchez Monocytes/100 WBC (Bld) 9.6 % Normal 1.7-12.0 [facility] Comment on above: Performed By: #### C BC #### [facility] [address] [place] [address] Dr. Ramsey Sanchez NEUT # 6.3 103/ul Normal 1.4-6.5 [facility] Comment on above: Performed By: #### C BC #### [facility] [address] [place] [address] Dr. Ramsey Sanchez Neutrophils/100 WBC (Bld) 71.3 % Normal 43.0-75.0 [facility] Comment on above: Performed By: #### C BC #### [facility] [address] [address] [address] Ramsey Sanchez Platelet mean volume (Bld) [Entitic vol] 11.0 fL Normal 9.5-13.5 [facility] Comment on above: Performed By: #### C BC #### [facility] [address] [place] [address] Dr. Ramsey Sanchez PLT 203 103/ul Normal 150-450 [facility] Comment on above: Performed By: #### C BC #### [facility] [address] [address] [address] Ramsey Sanchez RBC 4.83 106/ul Normal 4.70-6.10 [facility] Comment on above: Performed By: #### C BC #### [facility] [address] [place] [address] Dr. Ramsey Sanchez WBC 8.9 103/ul Normal 4.0-11.0 [facility] Comment on above: Performed By: #### C BC #### [facility] [address] [place] [address] Dr. Ramsey Sanchez LACTATE/LACTIC ACIDon 2022 Lactate [Moles/Vol] 1.0 mmol/L Normal 0.4-2.0 [facility] Comment on above: Performed By: #### C BC #### [facility] [address] [place] [address] Dr. Ramsey Sanchez PROF 14(COMP METB)on 023 Albumin [Mass/Vol] 3.7 g/dL Normal 3.4-5.0 [facility] Comment on above: Performed By: #### C XSTOOL #### [facility] [address] [place] [address] Dr. Ramsey Sanchez Albumin/Globulin [Mass ratio] 0.9 {ratio} Normal [facility] Comment on above: Performed By: #### C XSTOOL #### [facility] [address] [place] [address] Dr. Ramsey Sanchez ALP [Catalytic activity/Vol] 68 U/L Normal 46-116 [facility] Comment on above: Performed By: #### C XSTOOL #### [facility] [address] [address] [address] Ramsey Sanchez ALT [Catalytic activity/Vol] 23 U/L Normal 16-63 [facility] Comment on above: Performed By: #### C XSTOOL #### [facility] [address] [address] [address] Ramsey Sanchez Anion gap [Moles/Vol] 12.6 mmol/L Normal [facility] Comment on above: Performed By: #### C XSTOOL #### [facility] [address] [address] [address] Ramsey Sanchez AST [Catalytic activity/Vol] 21 U/L Normal 15-37 [facility] Comment on above: Performed By: #### C XSTOOL #### [facility] [address] [address] [address] Ramsey Sanchez Bilirubin [Mass/Vol] 0.3 mg/dL Normal 0.2-1.0 [facility] Comment on above: Performed By: #### C XSTOOL #### [facility] [address] [address] [address] Ramsey Sanchez Calcium [Mass/Vol] 8.8 mg/dL Normal 8.5-10.1 [facility] Comment on above: Performed By: #### C XSTOOL #### [facility] [address] [place] [address] Dr. Ramsey Sanchez Chloride [Moles/Vol] 104 mmol/L Normal 98-107 [facility] Comment on above: Performed By: #### C XSTOOL #### [facility] [address] [address] [address] Ramsey Sanchez CO2 [Moles/Vol] 26.7 mmol/L Normal 21.0-32.0 [facility] Comment on above: Performed By: #### C XSTOOL #### [facility] [address] [address] [address] Ramsey Sanchez Creatinine [Mass/Vol] 1.27 mg/dL Normal 0.70-1.30 [facility] Comment on above: Performed By: #### C XSTOOL #### [facility] [address] [address] [address] Ramsey Sanchez EGFR-AF ALBANIAN >60 Normal >=60 [facility] Comment on above: Performed By: #### C XSTOOL #### [facility] [address] [address] [address] Ramsey Sanchez EGFR-NON AF ALBANIAN 54 mL/min/1.73m2 Critically low >=60 [facility] Comment on above: Performed By: #### C XSTOOL #### [facility] [address] [address] [address] Ramsey Sanchez Globulin (S) [Mass/Vol] 3.9 g/dL Normal [facility] Comment on above: Performed By: #### C XSTOOL #### [facility] [address] [address] [address] Ramsey Sanchez Glucose [Mass/Vol] 114 mg/dL Critically high 74-106 [facility] Comment on above: Performed By: #### C XSTOOL #### [facility] [address] [address] [address] Ramsey Sanchez Potassium [Moles/Vol] 4.3 mmol/L Normal 3.5-5.1 [facility] Comment on above: Performed By: #### C XSTOOL #### [facility] [address] [place] [address] Dr. Ramsey Sanchez Protein [Mass/Vol] 7.6 g/dL Normal 6.4-8.[address] [facility] Comment on above: Performed By: #### C XSTOOL #### [facility] [address] [address] [address] Ramsey Sanchez Sodium [Moles/Vol] 139 mmol/L Normal 136-145 [facility] Comment on above: Performed By: #### C XSTOOL #### [facility] [address] [address] [address] Ramsye Sanchez Urea nitrogen [Mass/Vol] 19.0 mg/dL Critically high 7.0-18.0 [facility] Comment on above: Performed By: #### C XSTOOL #### [facility] [address] [place] [address] Dr. Ramsey Sanchez Urea nitrogen/Creatinine [Mass ratio] 15.0 mg/mg Normal [facility] Comment on above: Performed By: #### C XSTOOL #### [facility] [address] [place] [address] Dr. Ramsey Sanchez XR CHEST 1 Von [...] by: TRACY HIGHTOWER Date: 2022-09-24 23:29 Normal [facility] COVID + FLU Quick Testingon 09-22-2022 SARS-CoV-2 (COVID-19) RNA MICHELLE+probe Ql (Unsp spec) Positive [employer] [facility] [employer] Other COVID + FLU Quick Testing Negative [facility] [employer] Other POINT OF CARE GLUCOSEon - Glucose [Mass/Vol] 146 mg/dL Critically high 74-106 [facility] Comment on above: Performed By: #### C XSTOOL #### [facility] [address] [place] [address] Dr. Ramsey Sanchez US ARTERY UP EXT [...] ERWIN FALCON Date: 2022-04-16 17:21 Normal [facility] LACTOFERRIN FECAL QUANTon Lactoferrin, Fecal, Quant. 1.43 ug/mL(g) Normal 0.00-7.24 [facility] Comment on above: Result Comment: . Baseline [...] (IBS). Performed By: #### C XSTOOL #### [facility] [address] [place] [address] Dr. Ramsey Sanchez CBC AUTO DIFFon 03-10-2022 BASO # 0.1 103/ul Normal 0.0-0.1 [facility] Comment on above: Performed By: #### C BC #### [facility] [address] [place] [address] Dr. Ramsey Sanchez Basophils/100 WBC (Bld) 0.9 % Normal 0.2-2.0 [facility] Comment on above: Performed By: #### C BC #### [facility] [address] [place] [address] Dr. Ramsey Sanchez EO # 0.3 103/ul Normal 0.0-0.7 [facility] Comment on above: Performed By: #### C BC #### [facility] [address] [place] [address] Dr. Ramsey Sanchez Eosinophils/100 WBC (Bld) 2.6 % Normal 0.9-7.0 [facility] Comment on above: Performed By: #### C BC #### [facility] [address] [place] [address] Dr. Ramsey Sanchez Erythrocyte distribution width (RBC) [Ratio] 13.2 % Normal 11.0-15.0 [facility] Comment on above: Performed By: #### C BC #### [facility] [address] [place] [address] Dr. Ramsey Sanchez Hematocrit (Bld) [Volume fraction] 46.1 % Normal 42.0-54.0 [facility] Comment on above: Performed By: #### C BC #### [facility] [address] [place] [address] Dr. Ramsey Sanchez Hemoglobin (Bld) [Mass/Vol] 14.5 g/dL Normal 14.0-18.0 [facility] Comment on above: Performed By: #### C BC #### [facility] [address] [place] [address] Dr. Ramsey Sanchez IG # 0.15 10e3/ul Critically high 0.00-0.03 [facility] Comment on above: Performed By: #### C BC #### [facility] [address] [place] [address] Dr. Ramsey Sanchez IG % 1.3 % Critically high 0.0-0.5 [facility] Comment on above: Performed By: #### C BC #### [facility] [address] [place] [address] Dr. Ramsey Sanchez LYMPH # 2.7 103/ul Normal 1.2-3.8 [facility] Comment on above: Performed By: #### C BC #### [facility] [address] [place] [address] Dr. Ramsey Sanchez Lymphocytes/100 WBC (Bld) 23.0 % Normal 20.5-60.0 [facility] Comment on above: Performed By: #### C BC #### [facility] [address] [place] [address] Dr. Ramsey Sanchez MANUAL DIFF REQ NO Normal [facility] Comment on above: Performed By: #### C BC #### [facility] [address] [place] [address] Dr. Ramsey Sanchez MCH (RBC) [Entitic mass] 31.0 pg Normal 25.9-34.0 [facility] Comment on above: Performed By: #### C BC #### [facility] [facility] [address] [address] [address] Ramsey Sanchez MCHC (RBC) [Mass/Vol] 31.5 g/dL Normal 29.9-35.2 [facility] Comment on above: Performed By: #### C BC #### [facility] [address] [address] [address] Ramsey Sanchez MCV (RBC) [Entitic vol] 98.5 fL Critically high 80.0-94.0 [facility] Comment on above: Performed By: #### C BC #### [facility] [address] [address] [address] Ramsey Sanchez MONO # 0.9 103/ul Critically high 0.3-0.8 [facility] Comment on above: Performed By: #### C BC #### [facility] [address] [address] [address] Ramsey Sanchez Monocytes/100 WBC (Bld) 7.4 % Normal 1.7-12.0 [facility] Comment on above: Performed By: #### C BC #### [facility] [address] [place] [address] Dr. Ramsey Sanchez NEUT # 7.6 103/ul Critically high 1.4-6.5 [facility] Comment on above: Performed By: #### C BC #### [facility] [address] [address] [address] Ramsey Sanchez Neutrophils/100 WBC (Bld) 64.8 % Normal 43.0-75.0 [facility] Comment on above: Performed By: #### C BC #### [facility] [address] [address] [address] Ramsey Sanchez Platelet mean volume (Bld) [Entitic vol] 11.5 fL Normal 9.5-13.5 [facility] Comment on above: Performed By: #### C BC #### [facility] [address] [place] [address] Dr. Ramsey Sanchez PLT 243 103/ul Normal 150-450 [facility] Comment on above: Performed By: #### C BC #### [facility] [address] [address] [address] Ramsey Sanchez RBC 4.68 106/ul Critically low 4.70-6.10 [facility] Comment on above: Performed By: #### C BC #### [facility] [address] [address] [address] Ramsey Sanchez WBC 11.7 103/ul Critically high 4.0-11.0 [facility] Comment on above: Performed By: #### C BC #### [facility] [address] [address] [address] Ramsey Sanchez GLYCOHEMOGLOBIN A1Con 2021 ADA RECOMMENDATION SEE BELOW Normal [facility] Comment on above: Result Comment: ADA RECOMMENDED LIMIT 4.0 - 6.0 ADA THERAPEUTIC TARGET < 7.0 ACTION SUGGESTED > 7.0 Performed By: #### A 1C #### [facility] [address] [address] [address] Ramsey Sanchez Glucose [Mass/Vol] 123 mg/dL Normal [facility] Comment on above: Performed By: #### A 1C #### [facility] [address] [address] [address] Ramsey Sanchez HbA1c (Bld) [Mass fraction] 5.9 % Normal 4.5-6.2 [facility] Comment on above: Performed By: #### A 1C #### [facility] [address] [address] [address] Ramsey Sanchez LIPID PROFILEon 03-10-2022 CHOL-HDL RATIO NORM SEE BELOW Normal [facility] Comment on above: Result Comment: 3.3 - 4.4 LOW RISK 4.4 - 7.1 AVERAGE RISK 7.1 - 11.0 MODERATE RISK >11.0 HIGH RISK Performed By: #### C BC #### [facility] [address] [place] [address] Dr. Ramsey Sanchez Cholesterol [Mass/Vol] 121 mg/dL Normal <=200 [facility] Comment on above: Performed By: #### C BC #### [facility] [address] [place], [place] [address] Dr. Ramsey Sanchez Cholesterol in HDL [Mass/Vol] 30 mg/dL Critically low 40-60 [facility] Comment on above: Performed By: #### C BC #### [facility] [address] [place], [place] [address] Dr. Ramsey Sanchez Cholesterol in LDL [Mass/Vol] 47.6 mg/dL Normal [facility] Comment on above: Performed By: #### C BC #### [facility] [address] [address] [address] Ramsey Sanchez Cholesterol.total/Chol esterol in HDL [Mass ratio] 4.0 {ratio} Normal [facility] Comment on above: Performed By: #### C BC #### [facility] [address] [address] [address] Ramsey Sanchez HDL NORMAL > or = 60 mg/dl - LO W CARDIOVASCULAR RISK <40 mg/dl - HIGH CARDIOVASCULAR RISK Normal [facility] Comment on above: Performed By: #### C BC #### [facility] [address] [address] [address] Ramsey Sanchez LDL CALC NORMAL SEE BELOW Normal [facility] Comment on above: Result Comment: <100 mg/dl OPTIMAL 100 - 129 mg/dl NEAR OR ABOVE OPTIMAL 130 - 159 mg/dl BORDERLINE HIGH 160 - 189 mg/dl HIGH >190 mg/dl VERY HIGH Performed By: #### C BC #### [facility] [id number] Ramsey Sanchez Triglyceride [Mass/Vol] 217 mg/dL Critically high <=150 [facility] Comment on above: Performed By: #### C BC #### [facility] [address] [address] [address] Ramsey Sanchez VLDL CALC 43.4 mg/dL Normal [facility] Comment on above: Performed By: #### C BC #### [facility] [address] [place], [place] [address] Dr. Ramsey Sanchez LIVER PROFILEon 03-10-2022 Albumin [Mass/Vol] 3.9 g/dL Normal 3.4-5.[address] [facility] Comment on above: Performed By: #### C BC #### [facility] [address] [place] [address] Dr. Ramsey Sanchez Albumin/Globulin [Mass ratio] 1.1 {ratio} Normal [facility] Comment on above: Performed By: #### C BC #### [facility] [address] [place] [address] Dr. Ramsey Sanchez ALP [Catalytic activity/Vol] 75 U/L Normal 46-116 [facility] Comment on above: Performed By: #### C BC #### [facility] [address] [place] [address] Dr. Ramsey Sanchez ALT [Catalytic activity/Vol] 21 U/L Normal 16-63 [facility] Comment on above: Performed By: #### C BC #### [facility] [address] [place] [address] Dr. Ramsey Sanchez AST [Catalytic activity/Vol] 17 U/L Normal 15-37 [facility] Comment on above: Performed By: #### C BC #### [facility] [address] [place] [address] Dr. Ramsey Sanchez BILI, CONJUGATED 0.1 mg/dL Normal 0.0-0.2 [facility] Comment on above: Performed By: #### C BC #### [facility] [address] [place] [address] Dr. Ramsey Sanchez Bilirubin [Mass/Vol] 0.4 mg/dL Normal 0.2-1.0 [facility] Comment on above: Performed By: #### C BC #### [facility] [address] [place] [address] Dr. Ramsey Sanchez Globulin (S) [Mass/Vol] 3.5 g/dL Normal [facility] Comment on above: Performed By: #### C BC #### [facility] [address] [place] [address] Dr. Ramsey Sanchez Protein [Mass/Vol] 7.4 g/dL Normal 6.4-8.[address] [facility] Comment on above: Performed By: #### C BC #### [facility] [address] [address] [address] Ramsey Sanchez MICROALBUMIN, RAND URon 02-15 mALB <1.3 Normal <=30.0 [facility] Comment on above: Performed By: #### M ALBR #### [facility] [address] [address] [address] Ramsey Sanchez PROF CHEM 8 (BAS METB)on Anion gap [Moles/Vol] 12.6 mmol/L Normal [facility] Comment on above: Performed By: #### C BC #### [facility] [address] [address] [address] Ramsey Sanchez Calcium [Mass/Vol] 8.9 mg/dL Normal 8.5-10.1 [facility] Comment on above: Performed By: #### C BC #### [facility] [address] [address] [address] Ramsey Sanchez Chloride [Moles/Vol] 103 mmol/L Normal 98-107 [facility] Comment on above: Performed By: #### C BC #### [facility] [address] [address] [address] Ramsey Sanchez CO2 [Moles/Vol] 28.5 mmol/L Normal 21.0-32.0 [facility] Comment on above: Performed By: #### C BC #### [facility] [address] [address] [address] Ramsey Sanchez Creatinine [Mass/Vol] 0.89 mg/dL Normal 0.70-1.30 [facility] Comment on above: Performed By: #### C BC #### [facility] [address] [address] [address] Ramsey Sanchez EGFR-AF ALBANIAN >60 Normal >=60 [facility] Comment on above: Performed By: #### C BC #### [facility] [address] [address] [address] Ramsey Sanchez EGFR-NON AF ALBANIAN >60 Normal >=60 [facility] Comment on above: Performed By: #### C BC #### [facility] [address] [address] [address] Ramsey Sanchez Glucose [Mass/Vol] 102 mg/dL Normal 74-106 [facility] Comment on above: Performed By: #### C BC #### [facility] [address] [address] [address] Ramsey Sanchez Potassium [Moles/Vol] 4.1 mmol/L Normal 3.5-5.1 [facility] Comment on above: Performed By: #### C BC #### [facility] [address] [address] [address] Ramsey Sanchez Sodium [Moles/Vol] 140 mmol/L Normal 136-145 [facility] Comment on above: Performed By: #### C BC #### [facility] [address] [place] [address] Dr. Ramsey Sanchez Urea nitrogen [Mass/Vol] 16.0 mg/dL Normal 7.0-18.0 [facility] Comment on above: Performed By: #### C BC #### [facility] [address] [place] [address] Dr. Ramsey Sanchez Urea nitrogen/Creatinine [Mass ratio] 18.0 mg/mg Normal [facility] Comment on above: Performed By: #### C BC #### [facility] [address] [place] [address] Dr. Ramsey Sanchez STOOL CULTUREon 03-10-2022 Campylobacter Culture Final report Normal [facility] Comment on above: Performed By: #### C XSTOOL #### [facility] [address] [place] [address] Dr. Ramsey Sanchez E coli Shiga Toxin EIA Negative Normal Negative [facility] Comment on above: Performed By: #### C XSTOOL #### [facility] [address] [place] [address] Dr. Ramsey Sanchez Result 1 Comment Normal [facility] Comment on above: Result Comment: No S almonella or Shigella recovered. Performed By: #### C XSTOOL #### [facility] [address] [place] [address] Dr. Ramsey Sanchez Result Comment: No C ampylobacter species isolated. Salmonella/Shigella Screen Final report Normal [facility] Comment on above: Performed By: #### C XSTOOL #### [facility] [address] [place] [address] Dr. Ramsey Sanchez VITAMIN D 25 OHon 03-10-2022 VIT D 25-OH 40.2 ng/mL Normal [facility] Comment on above: Performed By: #### V ITAD #### [facility] [address] [address] [address] Ramsey Sanchez VIT D RANGES SEE BELOW Normal [facility] Comment on above: Result Comment: <20 ng/mL Vit D deficient 20 - <30 ng/mL Vit D insufficient 30 - 100 ng/mL Vit D sufficient >100 ng/mL Potential Toxicity Performed By: #### V ITAD #### [facility] [address] [place] [address] Dr. Ramsey Sanchez POC GLUCOSE LABon 08-31-2019 Glucose [Mass/Vol] 120 mg/dL High 70-100 [facility] Comment on above: Performed By: #### 8 [id number] #### [facility] [address] [place] [address], [place] Glucose [Mass/Vol] 114 mg/dL High 70-100 [facility] Comment on above: Performed By: #### 8 [id number] #### [facility] [address] [place] [address], [place] Glucose [Mass/Vol] 136 mg/dL High 70-100 [facility] Comment on above: Performed By: #### 8 [id number] #### [facility] [address] [place] [address], [place] BASIC METABOLIC PANELon 08-15 Calcium [Mass/Vol] 9.3 mg/dL Normal 8.6-10.3 [facility] Comment on above: Performed By: #### 0 0071 #### [facility] [address] [place] [address], [place] Chloride [Moles/Vol] 103 mmol/L Normal 98-107 [facility] Comment on above: Performed By: #### 0 0071 #### [facility] [address] [place] [address], [place] CO2 [Moles/Vol] 27 mmol/L Normal 21-31 [facility] Comment on above: Performed By: #### 0 0071 #### [facility] [address] [place] [address], [place] Creatinine [Mass/Vol] 1.04 mg/dL Normal 0.70-1.30 [facility] Comment on above: Performed By: #### 0 0071 #### [facility] [address] [place] [address], [place] GFR/1.73 sq M predicted among blacks MDRD (S/P/Bld) [Vol rate/Area] mL/min/{1.73_m2} Normal >60 [facility] Comment on above: Result Comment: Calc ulation may not be valid for patients over 70 years Performed By: #### 0 0071 #### [facility] [address] [place] [address], [place] GFR/1.73 sq M predicted among non-blacks MDRD (S/P/Bld) [Vol rate/Area] mL/min/{1.73_m2} Normal >60 [facility] Comment on above: Result Comment: Calc ulation may not be valid for patients over 70 years Performed By: #### 0 0071 #### [facility] [address] [place] [address], [place] Glucose [Mass/Vol] 128 mg/dL High 70-100 [facility] Comment on above: Performed By: #### 0 0071 #### [facility] [address] [place] [address], [place] Potassium [Moles/Vol] 4.2 mmol/L Normal 3.5-5.1 [facility] Comment on above: Performed By: #### 0 1 #### [facility] [address] [place] [address], [facility] Sodium [Moles/Vol] 139 mmol/L Normal 136-145 [facility] Comment on above: Performed By: #### 0 1 #### [facility] [address] [place] [address], [facility] Urea nitrogen [Mass/Vol] 20 mg/dL Normal 7-25 [facility] Comment on above: Performed By: #### 0 1 #### [facility] [address] [facility] CBC COMPLETE BLOOD COUNTon 08-30-2019 Erythrocyte distribution width (RBC) [Ratio] 13.9 % Normal 11.5-15.0 [facility] Comment on above: Performed By: #### 5 08 #### [facility] [address] [facility] Hematocrit (Bld) [Volume fraction] 44.9 % Normal 39.0-50.0 [facility] Comment on above: Performed By: #### 5 [id number] #### [facility] [address] [facility] [place] [address], [facility] Hemoglobin (Bld) [Mass/Vol] 14.5 g/dL Normal 13.0-17.0 [facility] Comment on above: Performed By: #### 5 0608 #### [facility] [address] [place] [address], [facility] MCH (RBC) [Entitic mass] 30.7 pg Normal 27.0-33.0 [facility] Comment on above: Performed By: #### 5 0608 #### [facility] [address] [place] [address], [facility] MCHC (RBC) [Mass/Vol] 32.3 g/dL Normal 32.0-35.0 [facility] Comment on above: Performed By: #### 5 0608 #### [facility] [address] [place] [address], [facility] MCV (RBC) [Entitic vol] 95.1 fL Normal 82.0-98.0 [facility] Comment on above: Performed By: #### 5 0608 #### [facility] [address] [place] [address], [facility] Nucleated RBC/100 WBC (Bld) [Ratio] 0 % Normal 0-0 [facility] Comment on above: Performed By: #### 5 0608 #### [facility] [address] [place] [address], [facility] PLAT CNT 238 10*3/uL Normal 150-400 [facility] Comment on above: Performed By: #### 5 0608 #### [facility] [address] [place] [address], [facility] RBC (Bld) [#/Vol] 4.72 10*6/uL Normal 4.20-5.70 [facility] Comment on above: Performed By: #### 5 0608 #### [facility] [address] [place] [address], [facility] WBC (Bld) [#/Vol] 12.83 10*3/uL High 4.00-10.60 [facility] Comment on above: Performed By: #### 5 0608 #### [facility] [address] Cardiovascular Lab Reporton 08-30-2019 Cardiovascular Lab Report [facility] Patient Name: Jeremie [facility] MR #: [id number] Physician: Margaret Arellano, Department of M.D. Medicine Service Date: 08/30/2019 Division of Birthdate: 1940 Cardiology Room #: 3AB [id number] Adult Cardiovascular Services [place] [address] Cardiovascular Laboratory Report FINAL IMPRESSIONS: 1. 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 2. 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 3. 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 4. Girb-hp-ritmejdj disease of the left anterior descending coronary [...] Follow up with Dr. Arellano in the [place] office in the next 2 to 4 [...] left common femoral artery was obtained. A 6-Botswanan 11 cm sheath was inserted without difficulty. Limited femoral angiography was performed. Bilateral selective coronary angiography was performed using JL4 and JR4 catheters. After reviewing the images, it was elected to proceed with an interventional procedure. A 6-Botswanan XB 3.5 guide catheter was advanced over [...] conclude the procedure. Attempts to deploy a 6-Botswanan MynxGrip closure device were unsuccessful. Therefore, manual [...] second obtuse marginal branch. Final images showed IKM-3 flow with no dissection, thrombus, or distal [...] Arellano M.D. Date Trans: 08/30/2019 05:00 P/tristiano [id number] cc: Demetrius Cooper MD [address] [place] [id number] Normal [facility] POC GLUCOSE LABon 08-30-2019 Glucose [Mass/Vol] 172 mg/dL High 70-100 [facility] Comment on above: Performed By: #### 8 [id number] #### [facility] [address] [place] [address], [facility] Glucose [Mass/Vol] 138 mg/dL High 70-100 [facility] Comment on above: Performed By: #### 8 [id number] #### [facility] [address] [place] [address], [facility] Vital Signs Date Time Vital Sign Value Performing Clinician Facility 01-18-2025 09:32-0400 Body height 165.1 cm [facility] Work Phone: [facility] 01-18-2025 09:32-0400 Body mass index (BMI) [Ratio] 24.63 kg/m2 [employer] DO Work Phone: [facility] 01-18-2025 09:32-0400 Body weight 67.13 kg [facility] DO Work Phone: [facility] 12-26-2024 13:08-0400 Body weight 72.12 kg Demetrius Cooper MD Work Phone: [facility] 12-11-2024 13:30-0400 Body mass index (BMI) [Ratio] 26.65 kg/m2 Mary Schneider MD Work Phone: [facility] 12-11-2024 13:30-0400 Body weight 72.65 kg Mary Schneider MD Work Phone: [facility] 12-11-2024 13:30-0400 Diastolic blood pressure 69 mm[Hg] Mary Schneider MD Work Phone: [facility] 12-11-2024 13:30-0400 Systolic blood pressure 111 mm[Hg] Mary Schneider MD Work Phone: [facility] 11-23-2024 09:57-0400 Body temperature 98 [degF] Demetrius Cooper MD Work Phone: [facility] 11-23-2024 09:57-0400 Body weight 73.02 kg Demetrius Cooper MD Work Phone: [facility] 11-23-2024 09:57-0400 Diastolic blood pressure 64 mm[Hg] Demetrius Cooper MD Work Phone: [facility] 11-23-2024 09:57-0400 Heart rate 68 /min Demetrius Cooper MD Work Phone: [facility] 11-23-2024 09:57-0400 Respiratory rate 18 /min Demetrius Cooper MD Work Phone: [facility] 11-23-2024 09:57-0400 SaO2% (BldA) [Mass fraction] 98 % Demetrius Cooper MD Work Phone: [facility] 11-23-2024 09:57-0400 Systolic blood pressure 103 mm[Hg] Demetrius Cooper MD Work Phone: [facility] 10-11-2024 13:56-0400 Body height 165.1 cm Veena Itzkowitz DO Work Phone: [facility] 10-11-2024 13:56-0400 Body mass index (BMI) [Ratio] 24.63 kg/m2 Veena Itzkowitz DO Work Phone: [facility] 10-11-2024 13:56-0400 Body weight 67.13 kg Veena Itzkowitz DO Work Phone: [facility] 10-04-2024 14:58-0400 Body height 167.64 cm Demetrius Cooper MD Work Phone: [facility] 10-03-2024 12:00-0400 Diastolic blood pressure 63 mm[Hg] Demetrius Cooper MD Work Phone: [facility] 10-03-2024 12:00-0400 Heart rate 63 /min Demetrius Cooper MD Work Phone: [facility] 10-03-2024 12:00-0400 Respiratory rate 16 /min Demetrius Cooper MD Work Phone: [facility] 10-03-2024 12:00-0400 SaO2% (BldA) [Mass fraction] 95 % Demetrius Cooper MD Work Phone: [facility] 10-03-2024 12:00-0400 Systolic blood pressure 131 mm[Hg] Demetrius Cooper MD Work Phone: [facility] 10-03-2024 11:30-0400 Inhaled oxygen flow rate 4 L/min Demetrius Cooper MD Work Phone: [facility] 10-03-2024 10:15-0400 Body height 165.1 cm Demetrius Cooper MD Work Phone: [facility] 10-03-2024 10:15-0400 Body temperature 97.3 [degF] Demetrius Cooper MD Work Phone: [facility] 10-03-2024 10:15-0400 Body weight 67.13 kg Demetrius Cooper MD Work Phone: [facility] 09-28-2024 13:47-0400 Body height 165.1 cm Missy Lowe PA Work Phone: [facility] 09-28-2024 13:47-0400 Body mass index (BMI) [Ratio] 24.63 kg/m2 Missy Lowe PA Work Phone: [facility] 09-28-2024 13:47-0400 Body weight 67.13 kg Missy Lowe PA Work Phone: [facility] 09-28-2024 13:47-0400 Diastolic blood pressure 68 mm[Hg] Missy Lowe PA Work Phone: [facility] 09-28-2024 13:47-0400 Systolic blood pressure 110 mm[Hg] Missy Lowe PA Work Phone: [facility] 09-27-2024 13:20-0400 Body height 165.1 cm Veena Itzkowitz DO Work Phone: [facility] 09-27-2024 13:20-0400 Body mass index (BMI) [Ratio] 24.96 kg/m2 Veena Itzkowitz DO Work Phone: [facility] 09-27-2024 13:20-0400 Body weight 68.04 kg Veena Itzkowitz DO Work Phone: [facility] 09-27-2024 13:20-0400 Diastolic blood pressure 62 mm[Hg] Veena Itzkowitz DO Work Phone: [facility] 09-27-2024 13:20-0400 Systolic blood pressure 94 mm[Hg] Veena Itzkowitz DO Work Phone: [facility] 09-26-2024 14:55-0400 Body height 165.1 cm Demetrius Cooper MD Work Phone: [facility] 09-26-2024 14:55-0400 Body mass index (BMI) [Ratio] 24.6 kg/m2 Demetrius Cooper MD Work Phone: [facility] 09-26-2024 14:55-0400 Body temperature 97.8 [degF] Demetrius Cooper MD Work Phone: [facility] 09-26-2024 14:55-0400 Body weight 67.13 kg Demetrius Cooper MD Work Phone: [facility] 09-26-2024 14:55-0400 Diastolic blood pressure 51 mm[Hg] Demetrius Cooper MD Work Phone: [facility] 09-26-2024 14:55-0400 Heart rate 66 /min Demetrius Cooper MD Work Phone: [facility] 09-26-2024 14:55-0400 Systolic blood pressure 85 mm[Hg] Demetrius Cooper MD Work Phone: [facility] 09-20-2024 21:13-0400 Body temperature 97.6 [degF] Demetrius Cooper MD Work Phone: [facility] 09-20-2024 21:13-0400 Diastolic blood pressure 62 mm[Hg] Demetrius Cooper MD Work Phone: [facility] 09-20-2024 21:13-0400 Heart rate 68 /min Demetrius Cooper MD Work Phone: [facility] 09-20-2024 21:13-0400 Respiratory rate 18 /min Demetrius Cooper MD Work Phone: [facility] 09-20-2024 21:13-0400 SaO2% (BldA) [Mass fraction] 96 % Demetrius Cooper MD Work Phone: [facility] 09-20-2024 21:13-0400 Systolic blood pressure 113 mm[Hg] Demetrius Cooper MD Work Phone: [facility] 09-20-2024 15:13-0400 Body height 165.1 cm Demetrius Cooper MD Work Phone: [facility] 09-20-2024 15:13-0400 Body weight 65 kg Demetrius Cooper MD Work Phone: [facility] 09-11-2024 [id number] Body height 165.1 cm Mary Schneider MD Work Phone: [facility] 09-11-2024 13:07-0400 Body mass index (BMI) [Ratio] 24.84 kg/m2 Mary Schneider MD Work Phone: [facility] 09-11-2024 [id number] Body temperature 96.8 [degF] Mary Schneider MD Work Phone: [facility] 09-11-2024 13:07-0400 Body weight 67.72 kg Mary Schneider MD Work Phone: [facility] 09-11-2024 10:14-0400 Body height 162.56 cm Demetrius Cooper MD Work Phone: [facility] 09-11-2024 10:14-0400 Body mass index (BMI) [Ratio] 25.7 kg/m2 Demetrius Cooper MD Work Phone: [facility] 09-11-2024 10:14-0400 Body weight 68.03 kg Demetrius Cooper MD Work Phone: [facility] 09-11-2024 10:14-0400 Diastolic blood pressure 74 mm[Hg] Demetrius Cooper MD Work Phone: [facility] 09-11-2024 10:14-0400 Heart rate 76 /min Demetrius Cooper MD Work Phone: [facility] 09-11-2024 10:14-0400 SaO2% (BldA) [Mass fraction] 98 % Demetrius Cooper MD Work Phone: [facility] 09-11-2024 10:14-0400 Systolic blood pressure 113 mm[Hg] Demetrius Cooper MD Work Phone: [facility] 08-23-2024 09:49-0400 Body temperature 97.5 [degF] Demetirus Cooper MD Work Phone: [facility] 08-23-2024 09:49-0400 Body weight 72.12 kg Demetrius Cooper MD Work Phone: [facility] 08-23-2024 09:49-0400 Diastolic blood pressure 94 mm[Hg] Demetrius Cooper MD Work Phone: [facility] 08-23-2024 09:49-0400 Heart rate 94 /min Demetrius Cooper MD Work Phone: [facility] 08-23-2024 09:49-0400 Respiratory rate 20 /min Demetrius Cooper MD Work Phone: [facility] 08-23-2024 09:49-0400 SaO2% (BldA) [Mass fraction] 98 % Demetrius Cooper MD Work Phone: [facility] 08-23-2024 09:49-0400 Systolic blood pressure 114 mm[Hg] Demetrius Cooper MD Work Phone: [facility] 08-21-2024 12:53-0400 Body height 167.64 cm Demetrius Cooper MD Work Phone: [facility] 08-21-2024 11:36-0400 Body temperature 98 [degF] Demetrius Cooper MD Work Phone: [facility] 08-21-2024 11:36-0400 Diastolic blood pressure 57 mm[Hg] Demetrius Cooper MD Work Phone: [facility] 08-21-2024 11:36-0400 Heart rate 76 /min Demetrius Cooper MD Work Phone: [facility] 08-21-2024 11:36-0400 Respiratory rate 18 /min Demetrius Cooper MD Work Phone: [facility] 08-21-2024 11:36-0400 SaO2% (BldA) [Mass fraction] 96 % Demetrius Cooper MD Work Phone: [facility] 08-21-2024 11:36-0400 Systolic blood pressure 122 mm[Hg] Demetrius Cooper MD Work Phone: [facility] 08-21-2024 04:13-0400 Body weight 70.9 kg Demetrius Cooper MD Work Phone: [facility] 08-20-2024 19:00-0400 Diastolic blood pressure 54 mm[Hg] Demetrius Cooper MD Work Phone: [facility] 08-20-2024 19:00-0400 Heart rate 61 /min Demetrius Cooper MD Work Phone: [facility] 08-20-2024 19:00-0400 Respiratory rate 18 /min Demetrius Cooper MD Work Phone: [facility] 08-20-2024 19:00-0400 SaO2% (BldA) [Mass fraction] 92 % Demetrius Cooper MD Work Phone: [facility] 08-20-2024 19:00-0400 Systolic blood pressure 104 mm[Hg] Demetrius Cooper MD Work Phone: [facility] 08-20-2024 18:04-0400 Body temperature 98.1 [degF] Demetrius Cooper MD Work Phone: [facility] 08-20-2024 16:57-0400 Body height 162.56 cm Demetrius Cooper MD Work Phone: [facility] 08-20-2024 16:57-0400 Body weight 71.6 kg Demetrius Cooper MD Work Phone: [facility] 08-17-2024 08:23-0400 Body height 167.64 cm Demetrius Cooper MD Work Phone: [facility] 08-17-2024 08:23-0400 Body temperature 97.3 [degF] Demetrius Cooper MD Work Phone: [facility] 08-17-2024 08:23-0400 Body weight 72.25 kg Demetrius Cooper MD Work Phone: [facility] 08-17-2024 08:23-0400 Diastolic blood pressure 71 mm[Hg] Demetrius Cooper MD Work Phone: [facility] 08-17-2024 08:23-0400 Heart rate 90 /min Demetrius Cooper MD Work Phone: [facility] 08-17-2024 08:23-0400 Respiratory rate 18 /min Demetrius Cooper MD Work Phone: [facility] 08-17-2024 08:23-0400 SaO2% (BldA) [Mass fraction] 95 % Demetrius Cooper MD Work Phone: [facility] 08-17-2024 08:23-0400 Systolic blood pressure 151 mm[Hg] Demetrius Cooper MD Work Phone: [facility] 08-16-2024 09:18-0400 Body weight 72.4 kg Demetrius Cooper MD Work Phone: [facility] 08-10-2024 15:40-0400 Body height 167.64 cm Demetrius Cooper MD Work Phone: [facility] 08-10-2024 08:25-0400 Body temperature 97.8 [degF] Demetrius Cooper MD Work Phone: [facility] 08-10-2024 08:25-0400 Diastolic blood pressure 65 mm[Hg] Demetrius Cooper MD Work Phone: [facility] 08-10-2024 08:25-0400 Heart rate 68 /min Demetrius Cooper MD Work Phone: [facility] 08-10-2024 08:25-0400 Respiratory rate 18 /min Demetrius Cooper MD Work Phone: [facility] 08-10-2024 08:25-0400 SaO2% (BldA) [Mass fraction] 94 % Demetrius Cooper MD Work Phone: [facility] 08-10-2024 08:25-0400 Systolic blood pressure 121 mm[Hg] Demetrius Cooper MD Work Phone: [facility] 08-09-2024 09:28-0400 Body weight 73.1 kg Demetrius Cooper MD Work Phone: [facility] 08-09-2024 09:16-0400 Body weight 73.1 kg Demetrius Cooper MD Work Phone: [facility] 08-09-2024 09:16-0400 Diastolic blood pressure 69 mm[Hg] Demetrius Cooper MD Work Phone: [facility] 08-09-2024 09:16-0400 Heart rate 77 /min Demetrius Cooper MD Work Phone: [facility] 08-09-2024 09:16-0400 Respiratory rate 18 /min Demetrius Cooper MD Work Phone: [facility] 08-09-2024 09:16-0400 SaO2% (BldA) [Mass fraction] 97 % Demetrius Cooper MD Work Phone: [facility] 08-09-2024 09:16-0400 Systolic blood pressure 110 mm[Hg] Demetrius Cooper MD Work Phone: [facility] 08-03-2024 09:58-0400 Body height 167.64 cm Demetrius Cooper MD Work Phone: [facility] 08-03-2024 08:27-0400 Body temperature 97.9 [degF] Demetrius Cooper MD Work Phone: [facility] 08-03-2024 08:27-0400 Diastolic blood pressure 74 mm[Hg] Demetrius Cooper MD Work Phone: [facility] 08-03-2024 08:27-0400 Heart rate 85 /min Demetrius Cooper MD Work Phone: [facility] 08-03-2024 08:27-0400 Respiratory rate 18 /min Demetrius Cooper MD Work Phone: [facility] 08-03-2024 08:27-0400 SaO2% (BldA) [Mass fraction] 95 % Demetrius Cooper MD Work Phone: [facility] 08-03-2024 08:27-0400 Systolic blood pressure 133 mm[Hg] Demetrius Cooper MD Work Phone: [facility] 07-28-2024 16:29-0400 Body height 167.64 cm Demetrius Cooper MD Work Phone: [facility] 07-27-2024 08:28-0400 Body temperature 98.1 [degF] Demetrius Cooper MD Work Phone: [facility] 07-27-2024 08:28-0400 Body weight 74.2 kg Demetrius Cooper MD Work Phone: [facility] 07-27-2024 08:28-0400 Diastolic blood pressure 79 mm[Hg] Demetrius Cooper MD Work Phone: [facility] 07-27-2024 08:28-0400 Heart rate 62 /min Demetrius Cooper MD Work Phone: [facility] 07-27-2024 08:28-0400 Respiratory rate 18 /min Demetrius Cooper MD Work Phone: [facility] 07-27-2024 08:28-0400 SaO2% (BldA) [Mass fraction] 95 % Demetrius Cooper MD Work Phone: [facility] 07-27-2024 08:28-0400 Systolic blood pressure 126 mm[Hg] Demetrius Cooper MD Work Phone: [facility] 07-26-2024 08:23-0400 Body temperature 97.6 [degF] Demetrius Cooper MD Work Phone: [facility] 07-26-2024 08:23-0400 Body weight 73.48 kg Demetrius Cooper MD Work Phone: [facility] 07-26-2024 08:23-0400 Diastolic blood pressure 72 mm[Hg] Demetrius Cooper MD Work Phone: [facility] 07-26-2024 08:23-0400 Heart rate 64 /min Demetrius Cooper MD Work Phone: [facility] 07-26-2024 08:23-0400 Respiratory rate 20 /min Demetrius Cooper MD Work Phone: [facility] 07-26-2024 08:23-0400 SaO2% (BldA) [Mass fraction] 96 % Demetrius Cooper MD Work Phone: [facility] 07-26-2024 08:23-0400 Systolic blood pressure 120 mm[Hg] Demetrius Cooper MD Work Phone: [facility] 07-20-2024 10:18-0500 Body weight 75.38 kg Demetrius Cooper MD Work Phone: [facility] 07-20-2024 08:46-0500 Body temperature 97.8 [degF] Demetrius Cooper MD Work Phone: [facility] 07-20-2024 08:46-0500 Body weight 74.84 kg Demetrius Cooper MD Work Phone: [facility] 07-20-2024 08:46-0500 Diastolic blood pressure 70 mm[Hg] Demetrius Cooper MD Work Phone: [facility] 07-20-2024 08:46-0500 Heart rate 68 /min Demetrius Cooper MD Work Phone: [facility] 07-20-2024 08:46-0500 Respiratory rate 20 /min Demetrius Cooper MD Work Phone: [facility] 07-20-2024 08:46-0500 SaO2% (BldA) [Mass fraction] 97 % Demetrius Cooper MD Work Phone: [facility] 07-20-2024 08:46-0500 Systolic blood pressure 137 mm[Hg] Demetrius Cooper MD Work Phone: [facility] 07-18-2024 08:50-0500 Body height 167.64 cm Demetrius Cooper MD Work Phone: [facility] 07-17-2024 14:33-0500 Diastolic blood pressure 73 mm[Hg] Demetrius Cooper MD Work Phone: [facility] 07-17-2024 14:33-0500 Heart rate 59 /min Demetrius Cooper MD Work Phone: [facility] 07-17-2024 14:33-0500 Respiratory rate 16 /min Demetrius Cooper MD Work Phone: [facility] 07-17-2024 14:33-0500 SaO2% (BldA) [Mass fraction] 96 % Demetrius Cooper MD Work Phone: [facility] 07-17-2024 14:33-0500 Systolic blood pressure 158 mm[Hg] Demetrius Cooper MD Work Phone: [facility] 07-17-2024 13:48-0500 Body temperature 97.3 [degF] Demetrius Cooper MD Work Phone: [facility] 07-17-2024 10:40-0500 Body height 165.1 cm Demetrius Cooper MD Work Phone: [facility] 07-17-2024 10:40-0500 Body weight 77.11 kg Demetrius Cooper MD Work Phone: [facility] 07-13-2024 16:08-0500 Body height 167.64 cm Demetrius Cooper MD Work Phone: [facility] 07-13-2024 08:37-0500 Body temperature 97.8 [degF] Demetrius Cooper MD Work Phone: [facility] 07-13-2024 08:37-0500 Body weight 77.01 kg Demetrius Cooper MD Work Phone: [facility] 07-13-2024 08:37-0500 Diastolic blood pressure 71 mm[Hg] Demetrius Cooper MD Work Phone: [facility] 07-13-2024 08:37-0500 Heart rate 64 /min Demetrius Cooper MD Work Phone: [facility] 07-13-2024 08:37-0500 Respiratory rate 18 /min Demetrius Cooper MD Work Phone: [facility] 07-13-2024 08:37-0500 SaO2% (BldA) [Mass fraction] 95 % Demetrius Cooper MD Work Phone: [facility] 07-13-2024 08:37-0500 Systolic blood pressure 127 mm[Hg] Demetrius Cooper MD Work Phone: [facility] 07-12-2024 08:41-0500 Body temperature 97.3 [degF] Demetrius Cooper MD Work Phone: [facility] 07-12-2024 08:41-0500 Body weight 76.65 kg Demetrius Cooper MD Work Phone: [facility] 07-12-2024 08:41-0500 Diastolic blood pressure 60 mm[Hg] Demetrius Cooper MD Work Phone: [facility] 07-12-2024 08:41-0500 Heart rate 61 /min Demetrius Cooper MD Work Phone: [facility] 07-12-2024 08:41-0500 Respiratory rate 20 /min Demetrius Cooper MD Work Phone: [facility] 07-12-2024 08:41-0500 SaO2% (BldA) [Mass fraction] 96 % Demetrius Cooper MD Work Phone: [facility] 07-12-2024 08:41-0500 Systolic blood pressure 106 mm[Hg] Demetrius Cooper MD Work Phone: [facility] 07-06-2024 11:06-0500 Body height 167.64 cm Demetrius Cooper MD Work Phone: [facility] 07-06-2024 08:36-0500 Body temperature 97.6 [degF] Demetrius Cooper MD Work Phone: [facility] 07-06-2024 08:36-0500 Body weight 77.83 kg Demetrius Cooper MD Work Phone: [facility] 07-06-2024 08:36-0500 Diastolic blood pressure 71 mm[Hg] Demetrius Cooper MD Work Phone: [facility] 07-06-2024 08:36-0500 Heart rate 63 /min Demetrius Cooper MD Work Phone: [facility] 07-06-2024 08:36-0500 Respiratory rate 18 /min Demetrius Cooper MD Work Phone: [facility] 07-06-2024 08:36-0500 SaO2% (BldA) [Mass fraction] 95 % Demetrius Cooper MD Work Phone: [facility] 07-06-2024 08:36-0500 Systolic blood pressure 122 mm[Hg] Demetrius Cooper MD Work Phone: [facility] 06-22-2024 14:58-0500 Body height 162.56 cm Demetrius Cooper MD Work Phone: [facility] 06-22-2024 14:58-0500 Body temperature 97.5 [degF] Demetrius Cooper MD Work Phone: [facility] 06-22-2024 14:58-0500 Body weight 78 kg Demetrius Cooper MD Work Phone: [facility] 06-22-2024 14:58-0500 Diastolic blood pressure 72 mm[Hg] Demetrius Cooper MD Work Phone: [facility] 06-22-2024 14:58-0500 Heart rate 50 /min Demetrius Cooper MD Work Phone: [facility] 06-22-2024 14:58-0500 Respiratory rate 20 /min Demetrius Cooper MD Work Phone: [facility] 06-22-2024 14:58-0500 SaO2% (BldA) [Mass fraction] 95 % Demetrius Cooper MD Work Phone: [facility] 06-22-2024 14:58-0500 Systolic blood pressure 149 mm[Hg] Demetrius Cooper MD Work Phone: [facility] 06-20-2024 14:38-0500 Body height 160 cm Matteo Bell MD Work Phone: [facility] 06-20-2024 14:38-0500 Body mass index (BMI) [Ratio] 30.11 kg/m2 Matteo Bell MD Work Phone: [facility] 06-20-2024 14:38-0500 Body weight 77.11 kg Matteo Bell MD Work Phone: [facility] 06-20-2024 14:38-0500 Diastolic blood pressure 74 mm[Hg] Matteo Bell MD Work Phone: [facility] 06-20-2024 14:38-0500 Systolic blood pressure 120 mm[Hg] Matteo Bell MD Work Phone: [facility] 06-14-2024 10:45-0500 Body height 167.64 cm Demetrius Cooper MD Work Phone: [facility] 06-14-2024 10:45-0500 Body mass index (BMI) [Ratio] 27.6 kg/m2 Demetrius Cooper MD Work Phone: [facility] 06-14-2024 10:45-0500 Body temperature 97.6 [degF] Demetrius Cooper MD Work Phone: [facility] 06-14-2024 10:45-0500 Body weight 77.56 kg Demetrius Cooper MD Work Phone: [facility] 06-14-2024 10:45-0500 Diastolic blood pressure 67 mm[Hg] Demetrius Cooper MD Work Phone: [facility] 06-14-2024 10:45-0500 Heart rate 69 /min Demetrius Cooper MD Work Phone: [facility] 06-14-2024 10:45-0500 Respiratory rate 20 /min Demetrius Cooper MD Work Phone: [facility] 06-14-2024 10:45-0500 Systolic blood pressure 103 mm[Hg] Demetrius Cooper MD Work Phone: [facility] 06-14-2024 09:53-0500 Body height 167.64 cm Demetrius Cooper MD Work Phone: [facility] 06-14-2024 09:53-0500 Body mass index (BMI) [Ratio] 27.6 kg/m2 Demetrius Cooper MD Work Phone: [facility] 06-14-2024 09:53-0500 Body temperature 97.6 [degF] Demetrius Cooper MD Work Phone: [facility] 06-14-2024 09:53-0500 Body weight 77.56 kg Demetrius Cooper MD Work Phone: [facility] 06-14-2024 09:53-0500 Diastolic blood pressure 67 mm[Hg] Demetrius Cooper MD Work Phone: [facility] 06-14-2024 09:53-0500 Heart rate 69 /min Demetrius Cooper MD Work Phone: [facility] 06-14-2024 09:53-0500 Respiratory rate 20 /min Demetrius Cooper MD Work Phone: [facility] 06-14-2024 09:53-0500 SaO2% (BldA) [Mass fraction] 96 % Demetrius Cooper MD Work Phone: [facility] 06-14-2024 09:53-0500 Systolic blood pressure 103 mm[Hg] Demetrius Cooper MD Work Phone: [facility] 06-05-2024 14:13-0500 Diastolic blood pressure 96 mm[Hg] [address] 06-05-2024 14:13-0500 Heart rate 65 /min [address] 06-05-2024 14:13-0500 Respiratory rate 16 /min [address] 06-05-2024 14:13-0500 SaO2% (BldA) [Mass fraction] 96 % [address] 06-05-2024 14:13-0500 Systolic blood pressure 147 mm[Hg] [address] 06-05-2024 12:22-0500 Body temperature 97.2 [degF] [address] 05-30-2024 11:16-0500 Body height 162.6 cm Mary Schneider MD Work Phone: [facility] 05-30-2024 11:16-0500 Body mass index (BMI) [Ratio] 28.89 kg/m2 Mary Schneider MD Work Phone: [facility] 05-30-2024 11:16-0500 Body temperature 98.2 [degF] Mary Schneider MD Work Phone: [facility] 05-30-2024 11:16-0500 Body weight 76.34 kg Mary Schneider MD Work Phone: [facility] 05-11-2024 10:00-0500 Body temperature 97.7 [degF] Mary Schneider MD Work Phone: [facility] 05-11-2024 10:00-0500 Diastolic blood pressure 72 mm[Hg] Mary Schneider MD Work Phone: [facility] 05-11-2024 10:00-0500 Heart rate 61 /min Mary Schneider MD Work Phone: [facility] 05-11-2024 10:00-0500 Respiratory rate 14 /min Mary Schneider MD Work Phone: [facility] 05-11-2024 10:00-0500 SaO2% (BldA) [Mass fraction] 95 % Mary Schneider MD Work Phone: [facility] 05-11-2024 10:00-0500 Systolic blood pressure 140 mm[Hg] Mary Schneider MD Work Phone: [facility] 05-11-2024 06:08-0500 Body height 162.6 cm Mary Schneider MD Work Phone: [facility] 05-11-2024 06:08-0500 Body mass index (BMI) [Ratio] 29.52 kg/m2 Mary Schneider MD Work Phone: [facility] 05-11-2024 06:08-0500 Body weight 78 kg Mary Schneider MD Work Phone: [facility] 04-07-2024 10:40-0500 Body height 162.6 cm Mary Schneider MD Work Phone: [facility] 04-07-2024 10:40-0500 Body mass index (BMI) [Ratio] 29.18 kg/m2 Mary Schneider MD Work Phone: [facility] 04-07-2024 10:40-0500 Body weight 77.11 kg Mary Schneider MD Work Phone: [facility] 03-29-2024 10:06-0500 Body height 162.6 cm Luc Ham MD Work Phone: [facility] 03-29-2024 10:06-0500 Body mass index (BMI) [Ratio] 29.7 kg/m2 Luc Ham MD Work Phone: [facility] 03-29-2024 10:06-0500 Body weight 78.47 kg Luc Ham MD Work Phone: [facility] 03-29-2024 10:06-0500 Diastolic blood pressure 70 mm[Hg] Luc Ham MD Work Phone: [facility] 03-29-2024 10:06-0500 Systolic blood pressure 138 mm[Hg] Luc Ham MD Work Phone: [facility] 03-23-2024 14:06-0500 Blood Pressure Location [facility] 03-23-2024 14:06-0500 Diastolic blood pressure 74 mm[Hg] [facility] 03-23-2024 14:06-0500 Heart rate 71 /min [facility] 03-23-2024 14:06-0500 Respiratory rate 16 /min [facility] 03-23-2024 14:06-0500 Systolic blood pressure 117 mm[Hg] [facility] 03-08-2024 09:25-0400 Body height 162.6 cm Luc Ham MD Work Phone: [facility] 03-08-2024 09:25-0400 Body mass index (BMI) [Ratio] 29.87 kg/m2 Luc Ham MD Work Phone: [facility] 03-08-2024 09:25-0400 Body weight 78.93 kg Luc Ham MD Work Phone: [facility] 03-08-2024 09:25-0400 Diastolic blood pressure 66 mm[Hg] Luc Ham MD Work Phone: [facility] 03-08-2024 09:25-0400 Systolic blood pressure 124 mm[Hg] Luc Ham MD Work Phone: [facility] 02-16-2024 14:19-0400 Body height 162.6 cm Luc Ham MD Work Phone: [facility] 02-16-2024 14:19-0400 Body mass index (BMI) [Ratio] 29.87 kg/m2 Luc Ham MD Work Phone: [facility] 02-16-2024 14:19-0400 Body weight 78.93 kg Luc Ham MD Work Phone: [facility] 02-16-2024 14:19-0400 Diastolic blood pressure 74 mm[Hg] Luc Ham MD Work Phone: [facility] 02-16-2024 14:19-0400 Systolic blood pressure 129 mm[Hg] Luc Ham MD Work Phone: [facility] 02-16-2024 08:59-0400 Body height 162.6 cm Missy Lowe PA Work Phone: [facility] 02-16-2024 08:59-0400 Body mass index (BMI) [Ratio] 29.7 kg/m2 Missy Lowe PA Work Phone: [facility] 02-16-2024 08:59-0400 Body weight 78.47 kg Missy Lowe PA Work Phone: [facility] 02-16-2024 08:59-0400 Diastolic blood pressure 78 mm[Hg] Missy Lowe PA Work Phone: [facility] 02-16-2024 08:59-0400 Systolic blood pressure 118 mm[Hg] Missy Lowe PA Work Phone: [facility] 02-01-2024 13:07-0400 Body height 162.6 cm Luc Ham MD Work Phone: [facility] 02-01-2024 13:07-0400 Body mass index (BMI) [Ratio] 29.52 kg/m2 Luc Ham MD Work Phone: [facility] 02-01-2024 13:07-0400 Body weight 78.02 kg Luc Ham MD Work Phone: [facility] 02-01-2024 13:07-0400 Diastolic blood pressure 71 mm[Hg] Luc Ham MD Work Phone: [facility] 02-01-2024 13:07-0400 Systolic blood pressure 101 mm[Hg] Luc Ham MD Work Phone: [facility] 10-21-2023 14:32-0400 Blood Pressure Location [facility] 10-21-2023 14:32-0400 Diastolic blood pressure 64 mm[Hg] [facility] 10-21-2023 14:32-0400 Heart rate 73 /min [facility] 10-21-2023 14:32-0400 Respiratory rate 18 /min [facility] 10-21-2023 14:32-0400 Systolic blood pressure 130 mm[Hg] [facility] 09-17-2023 08:58-0400 Blood Pressure Location Anjali Flor[facility] 09-17-2023 08:58-0400 Body temperature 97.34 [degF] Anjali Flori [facility] 09-17-2023 08:58-0400 Diastolic blood pressure 66 mm[Hg] Anjali Flori [facility] 09-17-2023 08:58-0400 Heart rate 66 /min Anjali Flori [facility] 09-17-2023 08:58-0400 Systolic blood pressure 123 mm[Hg] Anjali Flori [facility] 09-02-2023 13:28-0400 Body height 167.64 cm [facility] 09-02-2023 13:28-0400 Body mass index (BMI) [Ratio] 28 kg/m2 [facility] 09-02-2023 13:28-0400 Body weight 78.69 kg [facility] 09-02-2023 13:28-0400 Diastolic blood pressure 61 mm[Hg] [facility] 09-02-2023 13:28-0400 Heart rate 67 /min [facility] 09-02-2023 13:28-0400 SaO2% (BldA) [Mass fraction] 95 % [facility] 09-02-2023 13:28-0400 Systolic blood pressure 113 mm[Hg] [facility] 07-27-2023 10:23-0400 Body height 167.64 cm [facility] 07-27-2023 10:23-0400 Body mass index (BMI) [Ratio] 27.5 kg/m2 [facility] 07-27-2023 10:23-0400 Body temperature 97.9 [degF] [facility] 07-27-2023 10:23-0400 Body weight 77.28 kg [facility] 07-27-2023 10:23-0400 Diastolic blood pressure 66 mm[Hg] [facility] 07-27-2023 10:23-0400 Heart rate 86 /min [facility] 07-27-2023 10:23-0400 Respiratory rate 18 /min [facility] 07-27-2023 10:23-0400 SaO2% (BldA) [Mass fraction] 97 % [facility] 07-27-2023 10:23-0400 Systolic blood pressure 121 mm[Hg] [facility] 05-31-2023 13:30-0500 Body height 167.64 cm [employer] Other [employer] Other 05-31-2023 13:30-0500 Body mass index (BMI) [Ratio] 27.6 kg/m2 [employer] Other [employer] Other 05-31-2023 13:30-0500 Body weight 77.57 kg Gisele Brunson Other [employer] Other 05-31-2023 13:30-0500 Diastolic blood pressure 55 mm[Hg] Gisele Brunson Other [employer] Other 05-31-2023 13:30-0500 SaO2% (BldA) [Mass fraction] 94 % Gisele Brunson Other [employer] Other 05-31-2023 13:30-0500 Systolic blood pressure 104 mm[Hg] Gisele Brunson Other [employer] Other 05-25-2023 12:21-0500 Blood Pressure Location Anjali Flori [facility] 05-25-2023 12:21-0500 Diastolic blood pressure 65 mm[Hg] Anjali Ruby [facility] 05-25-2023 12:21-0500 Heart rate 88 /min Anjali Flori [facility] 05-25-2023 12:21-0500 Respiratory rate 16 /min Anjali Staffordmetz [facility] 05-25-2023 12:21-0500 Systolic blood pressure 113 mm[Hg] Anjali Staffordmetz [facility] 04-01-2023 13:15-0500 Body temperature 97.11 [degF] Vaishali Pringle MD Work Phone: [facility] 04-01-2023 13:15-0500 Body weight 75.75 kg Vaishali Pringle MD Work Phone: [facility] 04-01-2023 13:15-0500 Diastolic blood pressure 66 mm[Hg] Vaishali Pringle MD Work Phone: [facility] 04-01-2023 13:15-0500 Heart rate 70 /min Vaishali Pringle MD Work Phone: [facility] 04-01-2023 13:15-0500 SaO2% (BldA) [Mass fraction] 97 % Vaishali Pringle MD Work Phone: [facility] 04-01-2023 13:15-0500 Systolic blood pressure 109 mm[Hg] Vaishali Pringle MD Work Phone: [facility] 03-10-2023 08:53-0400 Blood Pressure Location Anjali Flori [facility] 03-10-2023 08:53-0400 Body temperature 97.16 [degF] Anjali Flori [facility] 03-10-2023 08:53-0400 Diastolic blood pressure 72 mm[Hg] Anjali Flori [facility] 03-10-2023 08:53-0400 Heart rate 63 /min Anjali Flori [facility] 03-10-2023 08:53-0400 Systolic blood pressure 117 mm[Hg] Anjali Flori [facility] 02-25-2023 13:27-0400 Blood Pressure Location Anjali Flori [facility] 02-25-2023 13:27-0400 Body temperature 98.06 [degF] Anjali Flori [facility] 02-25-2023 13:27-0400 Diastolic blood pressure 75 mm[Hg] Anjali Flori [facility] 02-25-2023 13:27-0400 Heart rate 85 /min Anjali Flori [facility] 02-25-2023 13:27-0400 Respiratory rate 16 /min Anjali Staffordmetz [facility] 02-25-2023 13:27-0400 Systolic blood pressure 122 mm[Hg] Anjali Ruby [facility] 01-29-2023 10:15-0400 Body height 167.64 cm Gisele Brunson Other [employer] Other 01-29-2023 10:15-0400 Body mass index (BMI) [Ratio] 28.24 kg/m2 Gisele Brunson Other [employer] Other 01-29-2023 10:15-0400 Body weight 79.38 kg Gisele Brunson Other [employer] Other 01-29-2023 10:15-0400 Diastolic blood pressure 75 mm[Hg] Gisele Brunson Other [employer] Other 01-29-2023 10:15-0400 SaO2% (BldA) [Mass fraction] 95 % Gisele Brunson Other [employer] Other 01-29-2023 10:15-0400 Systolic blood pressure 118 mm[Hg] Gisele Brunson Other [employer] Other 01-12-2023 09:22-0400 Blood Pressure Location Anjali Staffordmetz [facility] 01-12-2023 09:22-0400 Body temperature 96.98 [degF] Anjali Flori [facility] 01-12-2023 09:22-0400 Diastolic blood pressure 68 mm[Hg] Anjali Ruby [facility] 01-12-2023 09:22-0400 Heart rate 69 /min Anjali Ruby [facility] 01-12-2023 09:22-0400 Systolic blood pressure 109 mm[Hg] Anjali Ruby [facility] 10-13-2022 09:45-0400 Body height 167.64 cm Gisele Brunson Other [employer] Other 10-13-2022 09:45-0400 Body mass index (BMI) [Ratio] 27.92 kg/m2 Gisele Brunson Other [employer] Other 10-13-2022 09:45-0400 Body weight 78.47 kg Gisele Brunson Other [employer] Other 10-13-2022 09:45-0400 Diastolic blood pressure 70 mm[Hg] Gisele Brunson Other [employer] Other 10-13-2022 09:45-0400 SaO2% (BldA) [Mass fraction] 95 % Gisele Brunson Other [employer] Other 10-13-2022 09:45-0400 Systolic blood pressure 116 mm[Hg] Gisele Brunson Other [employer] Other 09-22-2022 18:14-0400 Body temperature 99.86 [degF] Gordy Sánchez [facility] 09-22-2022 16:28-0400 Body temperature 101.3 [degF] Gordy Sánchez [facility] 09-22-2022 16:28-0400 Diastolic blood pressure 61 mm[Hg] Gordy Sánchez [facility] 09-22-2022 16:28-0400 Heart rate 79 /min Gordy Sánchez [facility] 09-22-2022 16:28-0400 Respiratory rate 17 /min Gordy Sánchez [facility] 09-22-2022 16:28-0400 SaO2% (BldA) [Mass fraction] 93 % Gordy Sánchez [facility] 09-22-2022 16:28-0400 Systolic blood pressure 111 mm[Hg] Gordy Sánchez [facility] 09-22-2022 14:10-0400 Body height 167.64 cm Griselda Pennington Other [employer] Other 09-22-2022 14:10-0400 Body mass index (BMI) [Ratio] 29.7 kg/m2 Griselda Murphymond Other [employer] Other 09-22-2022 14:10-0400 Body temperature 100 [degF] Griselda Pennington Other [employer] Other 09-22-2022 14:10-0400 Body weight 83.46 kg Griselda Murphymond Other [employer] Other 09-22-2022 14:10-0400 Respiratory rate 18 /min Griselda Murphymond Other [employer] Other 09-22-2022 14:10-0400 SaO2% (BldA) [Mass fraction] 93 % Griselda Aditi Other [employer] Other 07-29-2022 10:15-0400 Body height 167.64 cm Erwin Salazar Other [employer] Other 07-29-2022 10:15-0400 Body mass index (BMI) [Ratio] 30.02 kg/m2 Erwin Salazar Other [employer] Other 07-29-2022 10:15-0400 Body weight 84.37 kg Erwin Salazar Other [employer] Other 07-29-2022 10:15-0400 Diastolic blood pressure 65 mm[Hg] Erwin Salazar Other [employer] Other 07-29-2022 10:15-0400 SaO2% (BldA) [Mass fraction] 94 % Erwin Salazar Other [employer] Other 07-29-2022 10:15-0400 Systolic blood pressure 102 mm[Hg] Erwin Salazar Other [employer] Other 11-29-2021 10:25-0400 Body height 167.64 cm Leti Garcia Other [employer] Other 11-29-2021 10:25-0400 Body temperature 96.9 [degF] Leti Garcia Other [employer] Other 11-29-2021 10:25-0400 Respiratory rate 18 /min Leti Garcia Other [employer] Other 11-29-2021 10:25-0400 SaO2% (BldA) [Mass fraction] 93 % Leti Garcia Other [employer] Other Encounters Encounter Date Encounter Type Care Provider Facility Start: 01-18-2025 End: 01-18-2025 Office outpatient visit 15 minutes Veena H Itzkowitz DO Work Phone: [facility] Comment on above: Esophageal dysphagia (Primary Dx) Start: 01-18-2025 End: 01-18-2025 ambulatory VEENA H ITZKOWITZ Not Available Start: 01-08-2025 End: 01-08-2025 Office outpatient visit 15 minutes Veena H Itzkowitz DO Work Phone: [facility] Comment on above: Esophageal dysphagia (Primary Dx); Carcinoma of oropharynx (HCC) Start: 01-08-2025 End: 01-08-2025 ambulatory VEENA H ITZKOWITZ Not Available Start: 12-26-2024 Registered Recurring Talib Faustin MD -[facility] Work Phone: Start: 12-26-2024 End: 12-26-2024 ambulatory Demetrius Cooper MD Work Phone: [facility] Work Phone: Start: 12-26-2024 End: 12-26-2024 Patient encounter procedure Becky Crouch RAYSHAWN -[facility] Work Phone: Start: 12-13-[address] 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 Start: 11-27-2024 End: 11-27-2024 ambulatory Demetrius Cooper Facility:[facility] Start: 11-23-2024 Registered Recurring Talib Faustin MD -[facility] Work Phone: Start: 11-23-2024 End: 11-23-2024 ambulatory Demetrius Cooper MD Work Phone: [facility] Work Phone: Start: 11-23-2024 End: 11-23-2024 Patient encounter procedure Talib Faustin MD -[facility] Work Phone: Start: 11-23-2024 End: 11-23-2024 Patient encounter procedure Debora Campbell [facility] Start: 11-23-2024 End: 11-23-2024 ambulatory Demetrius Cooper MD Work Phone: [facility] Work Phone: Start: 11-23-2024 Non-patient / Non-visit Robina Campbell [facility] Work Phone: Start: 11-21-2024 End: 11-21-2024 ambulatory Demetrius Cooper Facility: [facility] Start: 2024 End: 2024 ambulatory MD Demetrius Cooper Facility: [facility] Start: 10-12-2024 End: 10-12-2024 ambulatory MD Demetrius Cooper Facility:[facility] Start: 10-11-2024 End: 10-11-2024 Postop follow up visit related to original px Veena H Itjodee DO Work Phone: [facility] Comment on above: Esophageal dysphagia (Primary Dx); Carcinoma of oropharynx (CMS/HCC) Start: 10-11-2024 End: 10-11-2024 ambulatory VEENA H ITZKOWITZ Not Available Start: 10-03-2024 End: 10-03-2024 External Result Encounter Veena H Itzrosetz DO Work Phone: [facility] Unsolicited Start: 10-03-2024 End: 10-03-2024 External Result Encounter Veena Jane Adkins DO Work Phone: [facility] Unsolicited Start: 10-03-2024 End: 10-03-2024 Admission to same day surgery center Veena Adkins DO -[facility] [place] Start: 10-03-2024 End: 10-03-2024 ambulatory Demetrius Cooper Facility:[facility] Start: 09-28-2024 End: 09-28-2024 ambulatory MD Demetrius Cooper Facility:[facility] Start: 09-28-2024 End: 09-28-2024 Bamboo flowsheet Missy Lowe PA Work Phone: [facility] Start: 09-28-2024 End: 09-28-2024 Bamboo flowsheet Missy Lowe PA Work Phone: [facility] Start: 09-28-2024 End: 09-28-2024 Office outpatient visit 15 minutes Missy Lowe PA Work Phone: [facility] Comment on above: Vertigo (Primary Dx) ; Lumbar radiculopathy; Chronic bilateral low back pain, unspecified whether sciatica present; Degenerative disc disease, cervical; Migraine without aura and without status migrainosus, not intractable (CMS/HCC); Polyneuropathy Start: 09-28-2024 End: 09-28-2024 ambulatory MISSY LOWE Not Available Start: 09-27-2024 End: 09-27-2024 Office outpatient new 45 minutes Veena Jane Russelltz DO Work Phone: [facility] Comment on above: Esophageal dysphagia (Primary Dx) Start: 09-27-2024 End: 09-27-2024 ambulatory VEENA Jane ADKINS Not Available Start: 09-26-2024 End: 09-26-2024 ambulatory Demetrius Cooper MD Work Phone: [facility] Work Phone: Start: 09-26-2024 End: 09-26-2024 Patient encounter procedure Demetrius Cooper MD Work Phone: [facility] Work Phone: Start: 09-25-2024 Registered Recurring Demetrius gardiner MD Work Phone: [facility] Work Phone: Start: 09-20-2024 End: 09-20-2024 Emergency department patient visit Demetrius Cooper MD Work Phone: [facility] Work Phone: Start: 09-14-2024 End: 09-14-2024 ambulatory MD Demetrius Cooper Facility:[facility] Start: 09-11-2024 End: 09-11-2024 Office outpatient visit 15 minutes Mary Schneider MD Work Phone: [facility] Comment on above: 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); Dysphagia, unspecified type Start: 09-11-2024 End: 09-11-2024 ambulatory MARY SCHNEIDER [facility] Start: 09-11-2024 End: 09-11-2024 Patient encounter procedure Demetrius Cooper MD Work Phone: [facility] Work Phone: Start: 09-07-2024 Registered Recurring Demetrius gardiner MD Work Phone: [facility] Work Phone: Start: 09-07-2024 End: 09-07-2024 Patient encounter procedure Demetrius Cooper MD Work Phone: [facility] Work Phone: Start: 09-04-2024 End: 09-04-2024 [facility] Start: 08-30-2024 End: 08-30-2024 Lab Drop off Demetrius Cooper [facility] Start: 08-30-2024 End: 08-30-2024 ambulatory Demetrius Cooper Facility:[facility] Start: 08-24-2024 End: 08-24-2024 ambulatory Demetrius Cooper Facility:[facility] Start: 08-23-2024 End: 08-23-2024 Patient encounter procedure Demetrius Cooper MD Work Phone: [facility] Work Phone: Start: 08-22-2024 End: 09-25-2024 ambulatory Demetrius Cooper Facility:CD:[id number] Start: 08-21-2024 Non-patient / Non-visit Demetrius Cooper MD Work Phone: [facility] Work Phone: Start: 08-21-2024 Non-patient / Non-visit Demetrius Cooper MD Work Phone: [facility] Work Phone: Start: 08-21-2024 ambulatory Demetrius Cooper Facility: [facility] Start: 08-20-2024 End: 08-21-2024 Evaluation and management of inpatient Demetrius Cooper MD Work Phone: [facility] [place] [facility] Work Phone: Start: 08-18-2024 Registered Recurring Demetrius gardiner MD Work Phone: [facility] Work Phone: Start: 08-17-2024 Non-patient / Non-visit Demetrius Cooper MD Work Phone: [facility] Work Phone: Start: 08-17-2024 ambulatory Dennis Gray Faci lity:[facility] Start: 08-17-2024 Registered Recurring Demetrius gardiner MD Work Phone: [facility] Start: 08-16-2024 Non-patient / Non-visit Demetrius Cooper MD Work Phone: [facility] Work Phone: Start: 08-16-2024 Registered Recurring Demetrius gardiner MD Work Phone: [facility] Work Phone: Start: 08-16-2024 End: 08-16-2024 Patient encounter procedure Demetrius Cooper MD Work Phone: [facility] Start: 08-16-2024 End: 08-16-2024 ambulatory Demetrius Cooper MD Work Phone: [facility] Work Phone: Start: 08-14-2024 Non-patient / Non-visit Demetrius Cooper MD Work Phone: [facility] Start: 08-10-2024 Non-patient / Non-visit Demetrius Cooper MD Work Phone: [facility] Work Phone: Start: 08-10-2024 Registered Recurring Demetrius gardiner MD [facility]: [facility] Start: 08-09-2024 End: 08-09-2024 Patient encounter procedure Demetrius Cooper MD Work Phone: [facility] Work Phone: Start: 08-09-2024 Non-patient / Non-visit Demetrius Cooper MD Work Phone: [facility] Work Phone: Start: 08-09-2024 End: 08-09-2024 Patient encounter procedure Demetrius Cooper MD Work Phone: [facility] Start: 08-09-2024 End: 08-09-2024 ambulatory Demetrius Cooper MD Work Phone: [facility] Work Phone: Start: 08-07-2024 Non-patient / Non-visit Demetrius Cooper MD Work Phone: [facility] Work Phone: Start: 08-03-2024 Registered Recurring Demetrius gardiner MD Work Phone: [facility] Start: 08-03-2024 Non-patient / Non-visit Demetrius Cooper MD Work Phone: [facility] Work Phone: Start: 08-02-2024 Non-patient / Non-visit [facility]etrius Cooper MD [facility] Start: 08-02-2024 End: 08-02-2024 Patient encounter procedure Demetrius Cooper MD Work Phone: [facility] Start: 08-02-2024 End: 08-02-2024 ambulatory Demetrius Cooper MD Work Phone: [facility] Work Phone: Start: 07-31-2024 Non-patient / Non-visit Demetrius Cooper MD Work Phone: [facility] Work Phone: Start: 07-27-2024 Registered Recurring Demetrius gardiner MD Work Phone: [facility] Start: 07-27-2024 Non-patient / Non-visit Demetrius Cooper MD Work Phone: [facility] Work Phone: Start: 07-26-2024 End: 07-26-2024 ambulatory MATTEO MELO V Not Available Start: 07-26-2024 Registered Recurring Demetrius gardiner MD Work Phone: [facility] Work Phone: Start: 07-26-2024 Non-patient / Non-visit Demetrius Cooper MD Work Phone: [facility] Work Phone: Start: 07-26-2024 End: 07-26-2024 Departed Referred Demetrius Cooper MD Work Phone: [facility] Start: 07-26-2024 End: 07-26-2024 ambulatory Demetrius Cooper MD Work Phone: [facility] Work Phone: Start: 07-26-2024 End: 07-26-2024 Patient encounter procedure [facility]etrius Cooper MD [facility] Work Phone: Start: 07-26-2024 Non-patient / Non-visit Demetrius Cooper MD Work Phone: [facility] Start: 07-24-2024 Non-patient / Non-visit Demetrius Cooper MD Work Phone: [facility] Work Phone: Start: 07-21-2024 ambulatory Mary Schneider Facilit y:[facility] Start: 07-20-2024 Registered Recurring Demetrius gardiner MD Work Phone: [facility] Start: 07-20-2024 Non-patient / Non-visit Demetrius Cooper MD Work Phone: [facility] Work Phone: Start: 07-20-2024 End: 07-20-2024 Patient encounter procedure Demetrius Cooper MD Work Phone: [facility] Work Phone: Start: 07-19-2024 End: 07-19-2024 ambulatory [facility] Start: 07-19-2024 Non-patient / Non-visit Demetrius Cooper MD Work Phone: [facility] Start: 07-19-2024 End: 07-19-2024 Departed Referred Demetrius Cooper MD Work Phone: [facility] Start: 07-19-2024 End: 07-19-2024 Patient encounter procedure Demetrius Cooper MD Work Phone: [facility] Start: 07-19-2024 End: 07-19-2024 ambulatory Debora Tangw Facility:[facility] Start: 07-17-2024 End: 07-17-2024 External Result Encounter Matteo Melo MD Work Phone: [facility] Unsolicited Start: 07-17-2024 End: 07-17-2024 External Result Encounter Matteo Bell MD Work Phone: [facility] External [facility] Unsolicited Start: 07-17-2024 Registered Recurring Demetrius gardiner MD Work Phone: [facility] Work Phone: Start: 07-17-2024 End: 07-17-2024 Admission to same day surgery center [facility]etrius Cooper MD [facility] [place] Start: 07-17-2024 End: 07-17-2024 ambulatory Demetrius Cooper MD Work Phone: [facility] Work Phone: Start: 07-17-2024 Non-patient / Non-visit Demetrius Cooper MD Work Phone: [facility] Work Phone: Start: 07-13-2024 Non-patient / Non-visit Demetrius Cooper MD Work Phone: [facility] Work Phone: Start: 07-12-2024 Non-patient / Non-visit Demetrius Cooper MD Work Phone: [facility] Start: 07-12-2024 Registered Recurring Demetrius gardiner MD Work Phone: [facility] Work Phone: Start: 07-12-2024 Non-patient / Non-visit Demetrius Cooper MD Work Phone: [facility] Work Phone: Start: 07-12-2024 End: 07-12-2024 Patient encounter procedure Demetrius Cooper MD Work Phone: [facility] Work Phone: Start: 07-12-2024 End: 07-12-2024 ambulatory Demetrius Cooper MD Work Phone: [facility] Work Phone: Start: 07-10-2024 Non-patient / Non-visit Demetrius Cooper MD Work Phone: [facility] Work Phone: Start: 07-10-2024 End: 07-10-2024 ambulatory [facility] Start: 07-06-2024 Non-patient / Non-visit Demetrius Cooper MD Work Phone: [facility] Work Phone: Start: 07-06-2024 Non-patient / Non-visit Demetrius Cooper MD Work Phone: [facility] Start: 07-06-2024 Non-patient / Non-visit Demetrius Cooper MD Work Phone: [facility] Work Phone: Start: 07-06-2024 End: 07-06-2024 Departed Referred Demetrius Cooper MD Work Phone: [facility] Start: 07-06-2024 End: 07-06-2024 Patient encounter procedure Demetrius Cooper MD Work Phone: [facility] Start: 07-06-2024 End: 07-06-2024 ambulatory Demetrius Cooper MD Work Phone: [facility] Work Phone: Start: 07-05-2024 Non-patient / Non-visit Demetrius Cooper MD [facility]: [facility] Work Phone: Start: 07-04-2024 End: 07-04-2024 ambulatory Demetrius Cooper Facility:[facility] Start: 07-03-2024 End: 07-03-2024 Lab Drop off d Ramin [facility] Start: 07-03-2024 End: 07-03-2024 Departed Referred Demetrius Cooper MD Work Phone: [facility] [place] Start: 07-03-2024 End: 07-03-2024 Lab Drop off Demetrius Cooper [facility] Start: 07-03-2024 End: 07-03-2024 ambulatory Demetrius Cooper Facility:[facility] Start: 06-23-2024 End: 06-23-2024 Patient encounter procedure Isabel Romano AUD Work Phone: [facility] Comment on above: Sensorineural hearin g loss, bilateral (Primary Dx); Tinnitus, bilateral Start: 06-23-2024 End: 06-23-2024 ambulatory ISABEL ROMANO Not Available Start: 06-23-2024 End: 06-23-2024 Bamboo flowsheet Isabel Romano AUD Work Phone: [facility] Start: 06-23-2024 End: 06-23-2024 Bamboo flowsheet Isabel Romano AUD Work Phone: [facility] Start: 06-22-2024 End: 06-22-2024 Patient encounter procedure Demetrius Cooper MD Work Phone: [facility]Pre-Surgical [facility] Work Phone: Start: 06-22-2024 End: 06-22-2024 ambulatory Demetrius Cooper MD Work Phone: [facility] Work Phone: Start: 06-22-2024 Encounter for preprocedural laboratory examination Matteo Melo [facility] Start: 06-22-2024 End: 06-22-2024 External Result Encounter Matteo Melo MD Work Phone: [facility] External Department Unsolicited Start: 06-22-2024 End: 06-22-2024 External Result Encounter Matteo Bell MD Work Phone: [facility] External Department Unsolicited Start: 06-20-2024 End: 06-20-2024 Office outpatient new 45 minutes Matteo Melo MD Work Phone: [facility] Comment on above: Poor intravenous acc ess (Primary Dx); Carcinoma of oropharynx (CMS/HCC) Start: 06-20-2024 End: 06-20-2024 ambulatory MATTEO MELO V Not Available Start: 06-20-2024 Non-patient / Non-visit Demetrius Cooper MD Work Phone: [facility] Work Phone: Start: 06-20-2024 Registered Recurring Demetrius gardiner MD Work Phone: [facility] Work Phone: Start: 06-14-2024 End: 06-14-2024 ambulatory Demetrius Cooper MD Work Phone: [facility] Work Phone: Start: 06-14-2024 End: 06-14-2024 Patient encounter procedure Demetrius Cooper MD Work Phone: [facility] Work Phone: Start: 06-14-2024 Registered Recurring Demetrius gardiner MD Work Phone: [facility] Work Phone: Start: 06-14-2024 End: 06-14-2024 ambulatory Demetrius Cooper MD Work Phone: [facility] Work Phone: Start: 06-14-2024 End: 06-14-2024 Patient encounter procedure Demetrius Cooper MD Work Phone: [facility] Work Phone: Start: 06-06-2024 End: 06-06-2024 ambulatory [facility] Start: 06-05-2024 End: 06-05-2024 Subsequent hospital visit by physician [facility] Ultrasound 3 [facility] Comment on above: Enlarged submental l ymph node Start: 06-05-2024 End: 06-05-2024 ambulatory MARY Tripp SCHNEIDER [facility] Start: 05-30-2024 End: 05-30-2024 Postop follow up visit related to original px Mary Schneider MD Work Phone: [facility] Comment on above: 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); Metastasis to cervical lymph node Start: 05-30-2024 End: 05-30-2024 ambulatory MARY Tripp SCHNEIDER [facility] Start: 05-15-2024 End: 05-15-2024 Subsequent hospital visit by physician Rad External Film EF RAD EXTERNAL FILM [facility]IRTUAL Comment on above: Arrived Start: 05-15-2024 End: 05-15-2024 ambulatory MARY Tripp [facility] Start: 05-11-2024 End: 05-11-2024 Subsequent hospital visit by physician Mary Schneider MD Work Phone: [facility] Johnny NORMAN Comment on above: 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 Start: 04-17-2024 End: 04-17-2024 Lab Drop off Demetrius Cooper [facility] Start: 04-17-2024 End: 04-17-2024 ambulatory Demetrius Cooper Facility:[facility] Start: 04-11-2024 End: 04-11-2024 ambulatory MARY Tripp [facility] Start: 04-11-2024 End: 04-11-2024 Encounter for other preprocedural examination MARY Tripp [facility] Start: 04-11-2024 End: 04-11-2024 Encounter for preprocedural cardiovascular examination AMRY [facility] Start: 04-11-2024 End: 04-11-2024 Encounter for preprocedural respiratory examination MARY N [facility] Start: 04-07-2024 End: 04-07-2024 Office outpatient new 45 minutes Mary Schneider MD Work Phone: [facility] Comment on above: 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); Oral lesion; Malignant neoplasm of floor of mouth Start: 04-07-2024 End: 04-07-2024 ambulatory MARY Tripp [facility] Start: 03-29-2024 End: 03-29-2024 Bamboo flowsheet Luc Ham MD Work Phone: [facility] Start: 03-29-2024 End: 03-29-2024 Bamboo flowsdonya Ham MD Work Phone: [facility] Start: 03-29-2024 End: 03-29-2024 Office outpatient visit 15 minutes Luc Ham MD Work Phone: [facility] Comment on above: 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); Ulcer of gingiva Start: 03-29-2024 End: 03-29-2024 ambulatory LUC HAM Not Available Start: 03-27-2024 End: 03-27-2024 ambulatory LUC HAM Facility:[facility] Start: 03-27-2024 End: 03-27-2024 Subsequent hospital visit by physician Arrival Time Radiology Work Phone: Radiology [facility] Start: 03-23-2024 End: 03-23-2024 ambulatory Inez Henderson Facility:[facility] Start: 03-23-2024 End: 03-23-2024 Patient encounter procedure [facility] Start: 03-08-2024 End: 03-08-2024 Bamboo [...] Luc Ham MD Work Phone: [facility] Start: 02-29-2024 End: 02-29-2024 ambulatory MD Demetrius Cooper Work Phone: [facility] Work Phone: Start: 02-29-2024 End: 02-29-2024 Departed Referred MD Demetrius Cooper Work Phone: [facility] Start: 02-16-2024 End: 02-16-2024 Office outpatient visit 25 minutes Luc Ham MD Work Phone: [facility] Comment on above: LAD (lymphadenopathy ) of right cervical region (Primary Dx) Start: 02-16-2024 End: 02-16-2024 ambulatory LUC HAM Not Available Start: 02-16-2024 End: 02-16-2024 Bamboo flowsheet Missy Lowe PA Work Phone: [facility] Start: 02-16-2024 End: 02-16-2024 Bamboo flowsheet Missy Lowe PA Work Phone: [facility] Start: 02-16-2024 End: 02-16-2024 Office outpatient visit 15 minutes Missy Lowe PA Work Phone: [facility] Comment on above: Migraine without aur [...] Coordinator - Other Start: 02-01-2024 End: 02-01-2024 Bamboo flowsheet Luc Ham MD Work Phone: [facility] Start: 02-01-2024 End: 02-01-2024 Bamboo flowsheet Luc Ham MD Work Phone: [facility] Start: 02-01-2024 End: 02-01-2024 Office outpatient new 30 minutes Luc Ham MD Work Phone: [facility] Comment on above: Parotid mass (Primar y Dx) Start: 02-01-2024 End: 02-01-2024 Refill Vaishali Pringle MD Work Phone: General Surgery Start: 01-25-2024 End: 01-25-2024 ambulatory [facility] Start: 01-10-2024 End: 01-10-2024 ambulatory Demetrius Cooper Facility:[facility] Start: 11-09-2023 End: 11-09-2023 Patient encounter procedure Wileyella Castanoal Lilymini [facility] Start: 10-21-2023 End: 10-21-2023 Patient encounter procedure Inez Castanoal Lilymini [facility] Start: 09-17-2023 End: 09-17-2023 Patient encounter procedure Anjali Omalley Flori [facility] Start: 09-02-2023 End: 09-02-2023 ambulatory [facility] Work Phone: Start: 09-02-2023 End: 09-02-2023 Patient encounter procedure [facility] Work Phone: Start: 07-27-2023 End: 07-27-2023 Patient encounter procedure [facility] [place] Work Phone: Start: 05-31-2023 Office outpatient vi sit 25 minutes Gisele Brunson [facility] Start: 05-31-2023 End: 05-31-2023 ambulatory MD Demetrius Cooper Work Phone: [facility] Work Phone: Start: 05-31-2023 End: 05-31-2023 Patient encounter procedure MD Demetrius Cooper Work Phone: [facility] Work Phone: Start: 05-25-2023 End: 05-25-2023 Patient encounter procedure Anjali Ruby [facility] Start: 04-05-2023 Telephone encounter Vaishali orr MD Work Phone: General Surgery Comment on above: Received Outside Med ical Records Start: 04-01-2023 End: 04-01-2023 ambulatory VAISHALI PRINGLE Facility:[facility] Start: 04-01-2023 End: 04-01-2023 Patient encounter procedure Vaishali Pringle MD Work Phone: General Surgery Comment on above: IPMN (intraductal pa pillary mucinous neoplasm) (Primary Dx) Start: 03-10-2023 End: 03-10-2023 Patient encounter procedure Anjali Ruby [facility] Start: 03-10-2023 End: 03-10-2023 Patient encounter procedure Anjali Ruby [facility] Start: 02-25-2023 End: 02-25-2023 Patient encounter procedure Anjali Ruby [facility] Start: 02-16-2023 End: 02-16-2023 ambulatory MD Demetrius Cooper Work Phone: [facility] Work Phone: Start: 02-16-2023 End: 02-16-2023 Patient encounter procedure MD Demetrius Cooper Work Phone: [facility] [place] Work Phone: Start: 01-29-2023 Office outpatient vi sit 25 minutes Gisele [facility] Start: 01-29-2023 End: 01-29-2023 ambulatory MD Demetrius Cooper Work Phone: [facility] Work Phone: Start: 01-29-2023 End: 01-29-2023 Patient encounter procedure MD Demetrius Cooper Work Phone: [facility] Work Phone: Start: 01-27-2023 ambulatory Facility:[id number] Start: 01-27-2023 End: 01-27-2023 ambulatory MD Demetrius Cooper Work Phone: [facility] Work Phone: Start: 01-27-2023 End: 01-27-2023 Patient encounter procedure MD Demetrius Cooper Work Phone: [facility]-Pacemaker Check Start: 01-12-2023 End: 01-12-2023 Patient encounter procedure Anjali Ruby [facility] Start: 12-17-2022 End: 12-17-2022 Patient encounter procedure Anjali Ruby [facility] Start: 12-09-2022 End: 12-09-2022 ambulatory MD Demetrius Cooper Work Phone: [facility] Work Phone: Start: 12-09-2022 End: 12-09-2022 Patient encounter procedure MD Demetrius Cooper Work Phone: [facility] Work Phone: Start: 11-23-2022 End: 11-23-2022 Lab Drop off Demetrius Cooper [facility] Start: 10-13-2022 Office outpatient vi sit 15 minutes Gisele [facility] Start: 10-13-2022 End: 10-13-2022 ambulatory MD Mg London Work Phone: [facility] Work Phone: Start: 10-13-2022 End: 10-13-2022 Patient encounter procedure MD Mg London Work Phone: [facility] Work Phone: Start: 09-29-2022 End: 09-29-[address] EDY CARNEY Facility:H1 Start: 09-24-2022 End: 09-25-[address] MG LONDON Facility:H1 Start: 09-22-2022 End: 09-22-2022 Emergency department patient visit Gordy Sánchez [facility] Start: 09-22-2022 Office outpatient vi sit 15 minutes Griselda Pennington [facility] [place] Start: 09-22-2022 End: 09-22-2022 ambulatory NARENDRANATH LAKSHMIPATHY . [facility] [employer] Other Start: 08-25-2022 End: 08-26-2022 ambulatory NARENDRANATH LAKSHMIPATHY . Facility:H1 Start: 08-12-2022 ambulatory Facility:[id number] Start: 08-12-2022 End: 08-12-2022 ambulatory MD Mg London Work Phone: [facility] Work Phone: Start: 08-12-2022 End: 08-12-2022 Patient encounter procedure MD Mg London Work Phone: [facility] [place] Work Phone: Start: 08-11-2022 End: 08-11-2022 ambulatory NARENDRANATH LAKSHMIPATHY . Facility:H1 Start: 07-29-2022 Office outpatient ne w 60 minutes Erwin Salazar [facility] Start: 07-29-2022 End: 07-29-2022 ambulatory MD Mg London Work Phone: [facility] Work Phone: Start: 07-29-2022 End: 07-29-2022 Patient encounter procedure MD Mg London Work Phone: [facility] Work Phone: Start: 07-23-2022 End: 07-24-2022 ambulatory SONNY LAZO . Facility:H1 Start: 07-22-2022 End: 07-23-2022 ambulatory ALANNA Araiza [facility] Facility:H1 Start: 07-21-2022 ambulatory Facility:[id number] Start: 07-21-2022 End: 07-21-2022 ambulatory MD Mg London Work Phone: [facility] Work Phone: Start: 07-21-2022 End: 07-21-2022 Patient encounter procedure MD Mg London Work Phone: [facility]-Pacemaker Check Start: 06-18-2022 End: 07-10-2022 ambulatory SONA COPPOLA Facility:H1 Start: 06-16-2022 End: 06-17-2022 ambulatory SONA COPPOLA Facility:H1 Start: 06-11-2022 End: 06-12-2022 ambulatory ALANNA Araiza [facility] Facility:H1 Start: 05-26-2022 End: 05-26-2022 Patient encounter procedure Dequan GALICIA [facility] Start: 04-16-2022 End: 04-17-[address] ERWIN FALCON Facility:H1 Start: 03-19-[address] AMANDA CLANCY . Faci lity:H1 Start: 03-12-2022 End: 03-13-2022 ambulatory ALANNA Araiza [facility] Facility:H1 Start: 03-10-2022 End: 03-11-2022 ambulatory DIEGO COYNE Facility:H1 Start: 03-06-2022 End: 03-07-[address] DOCTOR GOFF Facility:H1 Start: 12-25-2021 End: 12-26-2021 ambulatory SONNY LAZO . Facility:H1 Start: 12-01-2021 End: 12-02-2021 ambulatory ALANNA HARDY Facility:H1 Start: 11-29-2021 End: 11-29-2021 ambulatory Leti Jose Other [facility] [employer] Other Start: 11-29-2021 Office outpatient vi sit 15 minutes Leti Jose [facility] [place] Start: 11-13-2021 End: 12-19-2021 ambulatory OSMAR JARQUIN Facility:H1 Start: 09-04-2020 End: 09-04-2020 Patient encounter procedure Param Ba Work Phone: -[facility] [place] Start: 08-15-2020 End: 08-15-2020 Patient encounter procedure Param Cosme -Pacemaker Check Start: 08-30-2019 End: 08-31-2019 Patient encounter procedure EHAB A [facility] Facility:[facility] Procedures Date Procedure Procedure Detail Performing Clinician Start: 11-13-2024 Positron emission tomography with computed tomography Demetrius Cooper MD Work Phone: Start: 10-03-2024 Upper gastrointestinal endoscopy for directed placement of percutaneous gastrostomy tube Demetrius Cooper MD Work Phone: Start: 10-03-2024 GLUCOSE POCT GLUCOMETERS Veena Adkins DO Work Phone: Start: 09-20-2024 Computed tomography of abdomen and pelvis with contrast Demetrius Cooper MD Work Phone: Start: 09-11-2024 Follow-up visit Follow-up MARY SCHNEIDER Start: 08-20-2024 CT of chest without contrast [...] Phone: Start: 06-23-2024 AUDITORY FUNCTION TESTS Isabel PALUMBO Work Phone: Start: 06-22-2024 Basic metabolic panel calcium total Matteo Melo MD Work Phone: Start: 06-22-2024 Complete blood count with white cell differential, automated Matteo Melo MD Work Phone: Start: 06-05-2024 Us guidance needle placement img s&i Mary Schneider MD Work Phone: Start: 05-15-2024 Study Interpretation of outside study Mary Schneider MD Work Phone: Start: 05-11-2024 Glucose quantitative blood xcpt reagent strip Mary Schneider MD Work Phone: Start: 05-11-2024 PULSE OXIMETRY, CONTINUOUS Delvis gilbert MD Work Phone: Start: 05-11-2024 Glucose quantitative blood xcpt reagent strip Mary Schneider MD Work Phone: Start: 05-11-2024 VERAB/VERIFY PHILIP Munoz MD Work Phone: Start: 05-11-2024 Blood [...] on above: Performed By: #### CBC #### [facility] [address] [place] [address] Dr. Ramsey Sanchez Start: 05-20-2020 Esophagogastroduodenoscopy Dequan MEE Fish Comment on above: 2 diminunative ulcers, gastritis, gastri c polyp, biopsy Angioplasty of blood vessel Dequan GALICIA Cardiac pacemaker procedure Dequan GALICIA Cataract (disorder) Gordy brannon Comment on above: bilateral Cholecystectomy Dequan MALDONADO Colonoscopy Dequan GALICIA Hernia repair Dequan GALICIA Prostatectomy Dequan GALICIA Tonsillectomy Dequan GALICIA Vasectomy Dequancassidy GALICIA Plan of Treatment Date Care Activity Detail Author Start: 06-08-2025 End: 06-08-2025 Patient encounter procedure 06/08/2025 1:30 PM EST Office Visit [facility] [address] [place] [address] [place] [address] [place] [address] [facility] Start: 04-11-2025 Creatinine measurement Creatinine Le kortney [facility] Start: 04-11-2025 Potassium measurement Potassium Ana escalante [facility] Start: 04-03-2025 End: 04-03-2025 Patient encounter procedure 04/03/2025 11:00 AM EST Office Visit [facility] [address] [place] [address] Missy Villarreal NP [address] [place], [place] [facility] Start: 01-15-2025 Influenza vaccination Influenza Vacc ine (#1) [facility] Start: 12-26-2024 Patient referral [facility] Work Phone: Start: 12-11-2024 End: 12-11-2024 Patient encounter procedure 12/11/2024 10:00 AM EDT Office Visit [facility] [address] [place] [address] 2[address] [place] [address] [place] [address] [place] [address] [facility] Start: 10-11-2024 End: 10-11-2024 Patient encounter procedure 10/11/2024 2:15 PM EDT Office Visit [facility] [address] [facility] [address] [place] [id number] Veena Adkins DO [address] [facility] [address] [place] [address] [facility] Start: 10-03-2024 [facility] Start: 09-28-2024 End: 09-28-2024 Patient encounter procedure [facility] Comment on above: Arrived Start: 08-29-2024 End: 08-29-2024 Patient encounter procedure [facility] [address] Start: 08-21-2024 [facility] Start: 08-21-2024 Administration of prophylactic treatment [facility] Start: 08-21-2024 [facility] Start: 08-21-2024 [facility] Start: 08-20-2024 Referral to infectio us diseases physician [facility] Start: 08-20-2024 [facility] Start: 08-20-2024 CT Chest WO contrast [facility] Start: 08-20-2024 CT of chest without contrast CT chest wo con [facility] Start: 08-20-2024 Hospital admission [facility] Start: 08-20-2024 [facility] Start: 08-20-2024 Bacteria identified in Blood by Culture Blood Culture [facility] Start: 08-17-2024 [facility] Start: 08-09-2024 End: 08-09-2024 [facility] Start: 08-03-2024 End: 08-03-2024 [facility] Start: 08-03-2024 [facility] Start: 07-27-2024 [facility] Start: 07-26-2024 End: 07-26-2024 Patient encounter procedure 07/26/2024 10:15 AM EDT Office Visit [facility] [address] [place] [id number] Matteo Melo MD [address] [place] [address] [facility] Start: 07-20-2024 [facility] Start: 07-20-2024 [facility] Start: 07-17-2024 [facility] Start: 07-13-2024 [facility] Start: 07-11-2024 End: 07-11-2024 Patient encounter procedure 07/11/2024 1:15 PM EST Office Visit [facility] [address] [place] [address] Matteo Melo MD [address] [address] [facility] Start: 07-06-2024 [facility] Start: 07-03-2024 Central venous cannu la insertion OR Infusaport Insertion/Removal (Not Applicable) [facility] Start: 06-30-2024 [facility] Start: 06-23-2024 End: 06-23-2024 Patient encounter procedure VALENTÍN PALUMBO Comment on above: Arrived Start: 06-14-2024 Patient referral [facility] Work Phone: Start: 06-05-2024 End: 06-05-2024 Patient encounter procedure 06/05/2024 1:00 PM EST Appointment [facility] [address] [place] [address] [facility] Start: 05-30-2024 End: 05-30-2024 Telemedicine consultation with patient 05/30/2024 11:45 AM EST Telemedicine [facility] [address] [place] [address] [place] [address] [place] [address] [facility] Start: 05-11-2024 End: 05-11-2024 [facility] incl fluor gdnce dx w/cell washg spx 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 05/11/2024 7:17 AM EST [facility] [place] Start: 05-11-2024 End: 05-11-2024 Esophagoscopy flexible transoral diagnostic Esophagoscopy Malignant neoplasm of floor of mouth 05/11/2024 7:17 AM EST [facility] [place] Start: 05-11-2024 End: 05-11-2024 Glossectomy hemiglossectomy GLOSSECTOMY, ROBOT-ASSISTED, ORAL APPROACH Malignant neoplasm of floor of mouth 05/11/2024 7:17 AM EST [facility] [place] Start: 05-11-2024 End: 05-11-2024 Laryngoscopy w/wo tracheoscopy dx except Direct Laryngoscopy Malignant neoplasm of floor of mouth 05/11/2024 7:17 AM EST [facility] [place] Start: 05-11-2024 End: 05-11-2024 Tonsillectomy primary/secondary age 12/> Tonsillectomy Malignant neoplasm of floor of mouth 05/11/2024 7:17 AM EST [facility] [place] Start: 04-19-2024 Subsequent hospital visit by physician 04/19/2024 Hospital Encounter [facility] [place] [address] [place] [address] [place] [address] [place], [place] [id number] [facility] [place] Start: 04-07-2024 End: 04-07-2025 Request for Pre-Admission Testing Visit Request for Pre-Admission Testing Visit Procedures Routine Oral lesion Malignant neoplasm of floor of mouth Expected: 04/07/2024 (Approximate), Expires: 04/07/2025 [facility] Service Area Work Phone: Comment on above: Expected: 04/07/2024 (Approximate), Expires: 04/07/2025 Start: 03-08-2024 End: 03-08-2024 Patient encounter procedure [facility] Comment on above: Arrived Start: 02-16-2024 End: 02-16-2024 Patient encounter procedure 02/16/2024 2:30 PM EDT Office Visit [facility] [address] [place] [address] Luc Ham MD [address] [place] [address] [facility] Start: 02-16-2024 End: 02-16-2024 Patient encounter procedure [facility] [address] [address] Comment on above: Arrived Start: 02-01-2024 End: 02-01-2024 Patient encounter procedure 02/01/2024 1:10 PM EDT Office Visit [facility] [address] [place] [address] Luc Ham MD [address] [facility] [address] [place] [address] Arrived [facility] Comment on above: Arrived Start: 01-16-2024 Covid-19 Vaccine ( season) Covid-19 Vaccine ( season) [facility] Start: 01-16-2024 Covid-19 Vaccine () Covid-19 Vaccine ( season) [facility] Start: 01-16-2024 Covid-19 Vaccine () Covid-19 Vaccine () [facility] Start: 01-16-2024 Influenza vaccination Influenza Vacc ine (#1) [facility] Start: 05-17-2023 Advance Directive Discussion Advance Directive Discussion [facility] Start: 01-15-2023 Covid-19 Vaccine () Covid-19 Vaccine () [facility] Start: 01-15-2023 Influenza vaccination Influenza Vacc ine (#1) [facility] Start: 11-12-2022 ambulatory Ambulatory Facility:H 1 Start: 05-17-2022 Advance Directive Discussion Advance Directive Discussion [facility] Start: 05-17-2022 Depression Assessment Depression Ass essment [facility] Start: 09-04-2020 MRI of right ankle MR ankle RT wo co n [facility] Start: 09-04-2020 XR pre/post mri xray XR pre/post mri xray [facility] Start: 01-30-2015 Pneumococcal Vaccine : 65+ (2 - PPSV23 or PCV20) Pneumococcal Vaccine: 65+ (2 - PPSV23 or PCV20) [facility] Start: 01-30-2015 Pneumococcal Vaccine : 65+ (2 of 2 - PPSV23 or PCV20) Pneumococcal Vaccine: 65+ (2 of 2 - PPSV23 or PCV20) [facility] Start: 10-29-2014 RSV High Risk: (Elde rly (60+) or Population) (1 - 1-dose 75+ series) RSV High Risk: (Elderly (60+) or Population) (1 - 1-dose 75+ series) [facility] Start: 10-29-2014 RSV Vaccine (1 - 1-d ose 75+ series) RSV Vaccine (1 - 1-dose 75+ series) [facility] Start: 1999 RSV Vaccine (1 - 1-d ose 60+ series) RSV Vaccine (1 - 1-dose 60+ series) [facility] Start: 10-29-1989 Shingrix Vaccine (1 of 2) Best grix Vaccine (1 of 2) [facility] Start: 10-29-1984 Diabetes Screening Diabetes Screenin g [facility] Start: 10-29-1961 DTaP/Tdap/Td Vaccine s (1 - Tdap) DTaP/Tdap/Td Vaccines (1 - Tdap) [facility] Start: 10-29-1958 Urine microalbumin profile DTa P,Tdap,Td Vaccine (1 - Tdap) [facility] Start: 10-29-1958 Urine screening for protein Diabetes: Urine Protein Screening [facility] Start: 10-29-1957 Anxiety Screening Anxiety Screening [facility] Start: 10-29-1957 Depression Screening Depression Scre ening [facility] Start: 10-29-1949 Glaucoma screening Diabetes: R etinopathy Screening [facility] Start: 1940 Annual wellness visit Welcome to Medicare Visit [facility] Start: 1940 Echocardiography Echocardiogram [facility] Start: 1939 Hemoglobin A1c measurement Mary betes: Hemoglobin A1C [facility] Start: 1939 Lipid panel Lipid Panel [facility] Start: 1939 Medicare Annual Well ness Visit Medicare Annual Wellness Visit (AWV) [facility] Start: 1939 Urine screening for protein Diabetes: Urine Protein Screening [facility] End: 05-11-2024 Cardiac device check - Inpatient [facility] Service Area Work Phone: Comment on above: Once for 1 Occurrenc es starting 05/11/2024 until 05/11/2024 End: 05-11-2024 Cardiac device check - Surgery [facility] Work Phone: Comment on above: Once for 1 Occurrenc es starting 05/11/2024 until 05/11/2024 Comprehensive metabo lic 2000 panel - Serum or Plasma [facility] Comprehensive metabo lic 1999 panel - Serum or Plasma [facility] Comprehensive metabo lic 1999 panel - Serum or Plasma [facility] Comprehensive metabo lic 1999 panel - Serum or Plasma [facility] Comprehensive metabo lic 1999 panel - Serum or Plasma [facility] CT with contrast for radiotherapy planning [facility] CT with contrast for radiotherapy planning [facility] End: 05-11-2024 Glucose [Mass/volume] in Serum or Plasma POCT Glucose Point of Care Testing - Docked Device Routine Once (Lab) for 1 Occurrences starting 05/11/2024 until 05/11/2024 [facility] Service Area Work Phone: Comment on above: Once (Lab) for 1 Occ urrences starting 05/11/2024 until 05/11/2024 Laryngoscopy w/wo tracheoscopy dx except Direct Laryngoscopy Oral lesion Malignant neoplasm of floor of mouth [facility] End: 03-02-2025 MR Biliary ducts and Pancreatic duct WO and W contrast IV MRI PANC/TRISH WO/W IVCON Radiology Routine IPMN (intraductal papillary mucinous neoplasm) 1 Occurrences starting 02/01/2024 until 03/02/2025 [facility] Work Phone: Comment on above: 1 Occurrences starti ng 02/01/2024 until 03/02/2025 End: 03-02-2025 MR Unspecified body region 3D post processing MRI 3D POST PROCESSING Radiology Routine IPMN (intraductal papillary mucinous neoplasm) 1 Occurrences starting 02/01/2024 until 03/02/2025 [facility] Comment on above: 1 Occurrences starti ng 02/01/2024 until 03/02/2025 Patient Education [facility] Work Phone: Patient referral [facility] Work Phone: Surgical pathology study Surgica l Pathology Exam Pathology and Cytology Routine Oral lesion 04/07/2024 11:37 AM EST [facility] Work Phone: Surgical pathology study [facility] S Service Area Work Phone: Comment on above: Release Upon Orderin g for 1 Occurrences starting 05/11/2024, 1 completed End: 06-05-2024 Surgical pathology study [facility] Service Ar ea Work Phone: Comment on above: Once (Lab) for 1 Occ urrences starting 06/05/2024 until 06/05/2024, 1 completed [facility] Immunizations Immunization Date Immunization Notes Care Provider Fa cility 04-17-2024 influenza, high dose seasonal, preservative-free; Translations: [Fluzone High Dose Vaccine] Deemtrius Cooper [facility] 04-17-2024 influenza virus vaccine, unspecified formulation Mary Schneider MD Work Phone: [facility] Work Phone: 02-09-2024 zoster vaccine recombinant Wiley Sarmini [facility] 11-22-2023 pneumococcal 20-reta nt conjugate vaccine Wiley Sarmini [facility] 11-22-2023 zoster vaccine recombinant Wiley Sarmini [facility] 04-28-2023 COVID-19 (PFIZER) 12Y and older Demetrius Cooper MD Work Phone: [facility] 04-12-2023 influenza virus vaccine, unspecified formulation Anjali Ruby [facility] 11-25-2021 Pfizer Haque Cap SARS-CoV-2 Vaccination Luc Ham MD Work Phone: [facility] 11-25-2021 SARS-CoV-2 mRNA (keztkrqmuaw-dorf-ypvw ose) vaccine Demetrius Cooper [facility] 11-25-2021 SARS-CoV-2, Unspecified Missy PEMBERTON Work Phone: [facility] 03-06-2021 SARS-CoV-2 (COVID-19 ) mRNA BNT-162b2 vax Demetrius Cooper [facility] Comment on above: Result Comment: 2022: [id number] 03-06-2021 SARS-CoV-2, Unspecified Luc Ham MD Work Phone: [facility] 02-18-2021 influenza virus vaccine, unspecified formulation Demetrius Cooper [facility] 02-18-2021 Influenza, injectabl e, Madin [place] Canine Kidney, preservative free, quadrivalent Luc Ham MD Work Phone: [facility] 06-27-2020 SARS-CoV-2 (COVID-19 ) Ad26 vaccine, recombinant Dequan GALICIA [facility] 06-27-2020 SARS-CoV-2 (COVID-19 ) mRNA BNT-162b2 vax Dequan GALICIA [facility] 06-27-2020 SARS-CoV-2, Unspecified Luc Ham MD Work Phone: [facility] 06-06-2020 SARS-CoV-2 (COVID-19 ) Ad26 vaccine, recombinant Dequan GALICIA [facility] 06-06-2020 SARS-CoV-2 (COVID-19 ) mRNA BNT-162b2 vax Dequan GALICIA [facility] 06-06-2020 SARS-CoV-2, Unspecified Luc Ham MD Work Phone: [facility] 02-14-2020 influenza virus vaccine, unspecified formulation Demetrius Cooper [facility] 02-14-2020 Influenza, injectabl e, Madin [place] Canine Kidney, preservative free, quadrivalent Luc Ham MD Work Phone: [facility] 01-31-2019 influenza, high dose seasonal, preservative-free Luc Ham MD Work Phone: [facility] 01-22-2018 influenza virus vaccine, unspecified formulation Luc Ham MD Work Phone: [facility] 01-22-2018 influenza, injectabl e, quadrivalent, contains preservative Luc Ham MD Work Phone: [facility] 01-22-2018 influenza, unspecifi ed formulation Demetrius Cooper [facility] 01-30-2014 pneumococcal conjuga te vaccine, 13 valent Demetrius Cooper [facility] 01-30-2014 pneumococcal conjuga te vaccine, 7 valent Luc Ham MD Work Phone: [facility] Healthcare Payers Date Payer Category Payer Private Health Insurance f [id number] 2024 Self-pay [id number] 2023 Dual Eligibility Medicare/Medicaid Organization [facility] [id number] 2022 Medicare .[id number] 2022 Medicare (Managed Care) 1.2. [id number] [id number] 2022 Medicare [id number] 2022 Medicare [id number] 1959 Medicare [id number] 1959 Medicare [id number] 1959 Medicare [id number] 1959 Unknown [id number] 1939 Unknown [id number] 2.16.840.1.380166.3.579. 2.647 1939 Unknown [id number] 2.16.840.1.673000.3.579. 2.593 1939 Unknown [id number] 2.16.840.1.292972.3.579. 2.593 1939 Unknown [id number] 2.16.840.1.631297.3.579. 2.593 1939 Unknown [id number] 2.16.840.1.352697.3.579. 2.593 1939 Unknown [id number] 2.16.840.1.967409.3.579. 2.593 1939 Unknown [id number] 2.16.840.1.621932.3.579. 2.593 1939 Unknown [id number] 2.16.840.1.178494.3.579. 2.593 1939 Unknown [id number] 2.16.840.1.279188.3.579. 2.593 1939 Unknown [id number] 2.16.840.1.174663.3.579. 2.593 1939 Unknown [id number] 2.16.840.1.139616.3.579. 2.593 1939 Unknown [id number] 2.16.840.1.843776.3.579. 2.593 1939 Unknown [id number] 2.16.840.1.245197.3.579. 2.593 1939 Unknown [id number] 2.16.840.1.102195.3.579. 2.593 1939 Unknown [id number] 2.16.840.1.630458.3.579. 2.593 1939 Unknown [id number] 2.16.840.1.914568.3.579. 2.593 1939 Unknown [id number] 2.16.840.1.071098.3.579. 2.593 1939 Unknown [id number] 2.16.840.1.728073.3.579. 2.593 1939 Unknown [id number] 2.16.840.1.780357.3.579. 2.593 1939 Unknown [id number] 2.16.840.1.175405.3.579. 2.593 1939 Unknown [id number] 2.16.840.1.426441.3.579. 2.593 1939 Unknown [id number] 2.16.840.1.362369.3.579. 2.356 1939 Unknown [id number] 2.16.840.1.042116.3.579. 2.356 1939 Unknown [id number] 2.16.840.1.396097.3.579. 2.356 1939 Unknown [id number] 2.16.840.1.284461.3.579. 2.727 1939 Unknown [id number] 2.16.840.1.370828.3.579. 2. 1939 Unknown [id number] 2.16.840.1.238248.3.579. 2. 1939 Unknown [id number] 2.16.840.1.714294.3.579. 2. 1939 Unknown [id number] 2.16.840.1.696996.3.579. 2. 1939 Unknown [id number] 2.16.840.1.965254.3.579. 2. 1939 Unknown [id number] 2.16.840.1.618069.3.579. 2 1939 Unknown [id number] 2.16.840.1.213697.3.579. 2 1939 Unknown [id number] 2.16.840.1.501661.3.579. 2 1939 Unknown [id number] 2.16.840.1.441936.3.579. 2 1939 Unknown [id number] 2.16.840.1.403592.3.579. 2 1939 Unknown [id number] 2.16.840.1.036514.3.579. 2 1939 Unknown [id number] 2.16.840.1.071062.3.579. 2. 1939 Unknown [id number] 2.16.840.1.547208.3.579. 2. 1939 Unknown [id number] 2.16.840.1.609420.3.579. 2. 1939 Unknown [id number] 2.16.840.1.734552.3.579. 2. 1939 Unknown [id number] 2.16.840.1.607061.3.579. 2.727 1939 Unknown [id number] 2.16.840.1.297920.3.579. 2.727 1939 Unknown [id number] 2.16.840.1.540265.3.579. 2.1245 1939 Unknown [id number] 2.16.840.1.143431.3.579. 2.124 1939 Unknown [id number] 2.16.840.1.149855.3.579. 2.124 1939 Unknown [id number] 2.16.840.1.272416.3.579. 2.1244 1939 Unknown [id number] 2.16.840.1.778589.3.579. 2.124 1939 Unknown [id number] 2.16.840.1.435862.3.579. 2.124 1939 Unknown [id number] 2.16.840.1.433990.3.579. 2.1244 1939 Unknown [id number] 2.16.840.1.365225.3.579. 2.1244 1939 Unknown [id number] 2.16.840.1.351817.3.579. 2.124 1939 Unknown [id number] 2.16.840.1.380828.3.579. 2.125 1939 Unknown [id number] 2.16.840.1.619042.3.579. 2.125 1939 Unknown [id number] 2.16.840.1.129763.3.579. 2.125 1939 Unknown [id number] 2.16.840.1.092349.3.579. 2.1259 1939 Unknown [id number] 2.16840.1.559638.3.579. 2.1259 1939 Unknown [id number] 2.16.840.1.226033.3.579. 2.1258 1939 Unknown [id number] 2.16.840.1.958776.3.579. 2.1258 1939 Unknown [id number] 2.16.840.1.181566.3.579. 2.1258 1939 Unknown [id number] 2.16.840.1.250011.3.579. 2.1258 1939 Unknown [id number] 2.16.840.1.086139.3.579. 2.1258 1939 Unknown [id number] 2..840.1.432805.3.579. 2.1258 1939 Unknown [id number] 2.840.1.102858.3.579. 2.1258 1939 Unknown [id number] 2..840.1.537579.3.579. 2.1258 1939 Unknown [id number] 2..840.1.008221.3.579. 2.1259 Unknown [id number] 2..840.1.419510.3.579. 2.531 Unknown [id number] 2..840.1.199345.3.579. 2.531 Unknown [id number] 2.16.840.1.298135.3.579. 2.531 Unknown [id number] 2.16.840.1.514041.3.579. 2.531 Unknown [id number] 2.16.840.1.904453.3.579. 2.531 Unknown [id number] 2.16.840.1.158676.3.579. 2.531 Unknown [id number] 2.16.840.1.346547.3.579. 2.531 Unknown [id number] 2.16.840.1.733221.3.579. 2.531 Unknown [id number] 2.16.840.1.087338.3.579. 2.531 Unknown [id number] 2.16.840.1.257563.3.579. 2.531 Unknown [id number] 2.16.840.1.993155.3.579. 2.531 Unknown [id number] 2.16.840.1.086214.3.579. 2.531 Unknown [id number] 2.16.840.1.312495.3.579. 2.531 Unknown [id number] 2.16.840.1.261727.3.579. 2.531 Unknown [id number] 2.16.840.1.819864.3.579. 2.531 Unknown [id number] 2.16.840.1.127287.3.579. 2.531 Unknown [id number] 2.16.840.1.666199.3.579. 2.531 Unknown [id number] 2.16.840.1.702074.3.579. 2.531 Unknown [id number] 2.16.840.1.582593.3.579. 2.531 Unknown [id number] 2.16.840.1.201140.3.579. 2.531 Unknown [id number] 2.16.840.1.450714.3.579. 2.531 Unknown [id number] 2.16.840.1.142104.3.579. 2.531 Social History Date Type Detail Facility [facility] Start: 1940 Sex Assigned At Male F [facility] Start: 04-01-2023 End: 01-18-2025 Sex Assigned At [facility] Start: 04-27-2022 End: 02-16-2024 Tobacco smoking status Ex-smoker (finding) [facility] Comment on above: former smoker quit a t age 41, 1 PPD Patient states he sm oked about 1.5 PPD, cigarettes, from about 17 y.o. to about 41 y.o. Start: 04-10-2022 Tobacco smoking status Never [facility] Comment on above: former smoker quit a t age 41, 1 PPD Patient states he sm oked about 1.5 PPD, cigarettes, from about 17 y.o. to about 41 y.o. End: 05-17-1983 History of tobacco use Current smoker [facility] End: 05-17-1983 History of tobacco use Cigarette Smoker [facility] Start: 04-01-2023 Tobacco use and exposure Smokeless tobacco non-user [facility] Start: 04-01-2023 End: 01-18-2025 History of Social function [facility] Start: 1940 Sex Assigned At Not on file [facility] History of tobacco use Passive smoker [facility] Start: 02-12-2024 End: 01-18-2025 Alcoholic beverage intake Current drinker of alcohol (finding) [facility] Start: 12-22-2022 Tobacco Comment Years smoked: 25 [facility] Start: 12-22-2022 Alcohol Comment 1 or 2 drinks/ day, monthly or less; Caffeine: 1 drink/day [facility] Start: 04-07-2024 End: 12-04-2024 Tobacco use and exposure Former smokeless tobacco user [facility] Work Phone: Start: 04-01-2024 End: 09-11-2024 Exposure to SARS-CoV-2 (event) Not sure [facility] Start: 05-11-2024 Gender identity Identifies as male gender (finding) [facility] Work Phone: Start: 05-11-2024 Sexual orientation Heterosexual (fin ding) [facility] Work Phone: Start: 06-14-2024 End: 09-26-2024 Sex Male (finding) [facility] Start: 08-20-2024 End: 11-23-2024 Tobacco smoking status NHIS Never smoked tobacco (finding) [facility] Start: 08-21-2024 SDOH Follow up SDOH Follow up [facility] Work Phone: Sexual Orientation [facility] Start: 12-04-2024 Alcohol Comment or less or week [facility] Work Phone: Medical Equipment Procedure Code Equipment Code Equipment Origin al Text Equipment Identifier Dates Insertion of central venous catheter (CVC) with subcutaneous port for chemotherapy Vascular port/catheter [id number] [facility] Start: 07-17-2024 End: 05-11-2024 See Instructions , [...] [facility] ionnaire 2 item (PHQ-2) [Reported] [facility] Work Phone: 08-21-2024 Functional status Patient at Baseline [facility] Work Phone: 03-23-2024 Functional Status N/A [facility] 10-21-2023 Functional Status N/A [facility] 09-17-2023 Functional Status N/A [facility] 05-25-2023 Functional Status N/A [facility] 03-10-2023 Functional Status N/A [facility] 02-25-2023 Functional Status N/A [facility] 01-12-2023 Functional Status N/A [facility] 09-22-2022 Functional Status N/A [facility] 05-19-2022 Functional Status N/A [facility] Mental Status Date Assessment Result Facility 08-21-2024 Cognitive function Cognitive Sta tus Patient at Baseline [facility] Work Phone: Clinical Notes 11-29-2021 to 01-18-2025 Veena Adkins DO - 01/18/2025 9:45 AM Elyssa Schneider MD - 12/11/2024 1:45 PM EDT Note Date & Type Note Facility 01-18-2025 History of Presen t illness Narrative Images from the original note were not included. Jeremie Bennett is a 84 y.o. male presents for follow from removal of gastrostomy tube. HPI: HPI Jeremie has been off his Plavix for several days and presents for PEG tube removal OBJECTIVE: Physical Exam ASSESSMENT AND PLAN: Assessment/Plan Diagnoses and all orders for this visit: Esophageal dysphagia I removed the PEG tube, all parts were intact. I told him to keep a cover on the site until it stops draining. I'll see him PRN. documented in this encounter [facility] 12-26-2024 Progress note [facility] enter 12-11-2024 History of Present illness Narrative Formatting of this note might be differe nt from the original. HEAD AND NECK SURGERY FOLLOW UP [facility] Referring Provider: Dr. Ham HPI I had [...] onc) and Dr Lamas (med onc) at [facility] - November 2024 post treatment PET with no residual FDG avidity in the lymph nodes or oropharynx Returns for routine surveillance. Received a g tube shortly after I saw him last, weight has now improved to 160 lbs (149 prior, pre treatment 170). He feels better, symptoms improved with more energy. thinks he is doing much better. Doing one tube feed per day and the rest by mouth. 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 Tobacco use: The patient reports that he quit smoking about 41 years ago. His smoking use included cigarettes. He has a 40 pack-year smoking history. He has quit using smokeless tobacco. Alcohol Use: The patient reports current alcohol use of about 2.0 standard drinks of alcohol per week. Physical Examination Vitals: BP 111/69 Wt 72.7 kg (160 lb 2.6 oz) BMI 26.65 kg/m General: Examination reveals a well-appearing patient in no apparent distress. The patient [...] tongue are normal to inspection and palpation. Prior thick mucous in posterior pharynx improved Salivary glands: There are no palpable masses of the parotid or submandibular glands. Neuro: Cranial nerves 2-12 are without obvious abnormality. Neck: The neck is soft and symmetric. Mild radiation changes, nontender. No enlarged lymph nodes Procedure Note: Diagnostic Flexible Laryngoscopy (23044) Indication: patient symptoms requiring evaluation of pharyngeal/laryngeal/hypopharyngeal structures Surgeon: Mary Schneider MD Informed Consent: [...] ulcerations or masses. Expected post treatment changes, improved thick mucous throughout base of tongue, improved prior epiglottis edema, TVF adduct and abduct fully, airway widely patent Attestation: I performed the procedure in its entirety, or was present with the resident/fellow for the entirety of the procedure. 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 JUVE today on exam or imaging - Continue BARREL RACER therapy, he will do this closer to home - Doing well with g tube, discussed scaling back tube feeds as able with goal of all PO intake. - Post treatment Navdx - was not completed yet, will re-order - Discussed NCCN guidelines for continued surveillance. They would like to alternate appointments with radiation oncologist (Dr Gray) and myself. They know to call if any issues and I will see them sooner, and they can see local ENT Dr Ham if urgent concerns Mary Schneider MD documented in this encounter [facility] Work Phone: 12-05-2024 Note [place] Electrophysiology Consult Note [place] [facility]iology - [facility] Reason for visit: Device at [facility] 12/05/2024 Patient underwent GEN change on 07/10/2024. Patient is here today for a 3 month follow up. Patient states he feels pretty good. Patient denies chest pain, SOB, palpitations, dizziness, or leg swelling. Patient states he does have some fatigue, patient feels its due to cancer treatments. Patient states he has been on a feeding tube, which he states could possible be taken out next month. His last echocardiogram done in April 2024 showed a normal EF. He is currently on sotalol 40 mg twice daily. HPI: Jeremie Bennett is a 84 y.o. year old with past medical history [...] Diabetes mellitus (CMS/HCC) Heart valve disease Hyperlipidemia Throat cancer ([facility]/HCC) [place] (ventricular tachycardia) ([facility], [facility]) PSH: Past Surgical History: Procedure Laterality Date ABLATION OF DYSRHYTHMIC FOCUS CARDIAC CATHETERIZATION INSERT / REPLACE / REMOVE PACEMAKER SH: Social Drivers of Health Tobacco Use: Medium Risk (12/05/2024) Patient History Smoking Tobacco Use: Former Smokeless Tobacco Use: Never Passive Exposure: Not on file Alcohol Use: Not on file Financial Resource Strain: Not on file Food Insecurity: Not on file Transportation Needs: Not on file Physical Activity: Not on file Stress: Not on file Social Connections: Not on file Intimate Partner Violence: Unknown (07/08/2023) [place] Safety & Environment Fear of Current or Ex-Partner: Not on file Emotionally Abused: Not on file Physically Abused: Not on file Sexually Abused: Not on file Physically or Sexually Abused: Not on file Depression: Not at risk (09/11/2024) Received from [facility] PHQ-2 Patient Health Questionnaire-2 Score: 0 Housing Stability: Not on file Utilities: Not on file Health Literacy: Not on file Allergies: Allergies Allergen Reactions Adhesive Tape-Silicones Niacin Adhesive Rash and Unknown Weight: 72.1kg Visit Vitals BP 95/63 (BP Location: Left arm, Patient Position: Sitting) Pulse 63 Ht 1.651 m (5' 5 ) Wt 72.1 kg (159 lb) SpO2 96% BMI 26.46 kg/m??? Smoking Status Former BSA 1.82 m??? Meds: Current Outpatient Medications on File Prior to Visit Medication Sig Dispense Refill albuterol 90 mcg/actuation inhaler Inhale 2 puffs if needed. amLODIPine (Norvasc) 5 mg tablet TAKE 1 TABLET BY MOUTH IN THE MORNING 100 tablet 3 FULUCHVEQN-GDMLGZD-OQQKEWEZ ORAL Take by mouth if needed. clopidogrel (Plavix) 75 mg tablet Take 1 tablet (75 mg) by mouth in the morning. 100 tablet 3 famotidine (Pepcid) 20 mg tablet Take 20 mg by mouth in the morning. fluticasone (Flonase) 50 mcg/actuation nasal spray Administer 1 spray into each nostril in the morning. furosemide (Lasix) 20 mg tablet Take 1 tablet every day by oral route. irbesartan (Avapro) 300 mg tablet TAKE 1 TABLET BY MOUTH IN THE MORNING 100 tablet 2 isosorbide mononitrate ER (Imdur) 30 mg 24 hr tablet Take 1 tablet (30 mg) by mouth in the morning. 100 tablet 3 loperamide (Imodium A-D) 2 mg tablet Take 2 mg by mouth if needed in the morning, at noon, in the evening, and at bedtime. metFORMIN XR (Glucophage-XR) 500 mg 24 hr tablet Take 500 mg by mouth in the morning. omeprazole (PriLOSEC) [address] capsule Take 40 mg by mouth before breakfast. Do not crush or chew. rosuvastatin (Crestor) 10 mg tablet Take 1 tablet by mouth in the morning. sotalol (Betapace) 80 mg tablet Take 0.5 tablets (40 mg) by mouth every 12 (twelve) hours. 90 tablet 3 tiZANidine (Zanaflex) 4 mg tablet TAKE 1/2 TO 1 TABLET BY MOUTH EVERY DAY AT NIGHT zonisamide (Zonegran) 25 mg capsule 25 mg two times daily. aspirin 81 mg EC tablet Take 1 tablet every day by oral route. odardbngpd-bbbisnwdrgjyp-obyh (Esgic) 50-325-40 mg capsule Take 1 capsule by mouth every 4 (four) hours if needed. (Patient not taking: Reported on 12/05/2024) diphenhydrAMINE-acetaminophen (Tylenol PM Extra Strength) 25-500 mg per tablet Take 1 tablet by mouth if needed at bedtime. fentaNYL (Duragesic) 12 mcg/hr Place 1 patch on the skin every 3rd (third) day. gabapentin (Neurontin) 600 mg tablet Take 600 mg by mouth in the morning. HYDROcodone-acetaminophen ([place]) 5-325 mg tablet Take 1 tablet by mout (more content not included)... [facility] 11-23-2024 Progress note [facility] enter 11-23-2024 Evaluation note Diagnosis Onset Date Resolution Cancer associated pain acute Ju 2024 7:46am 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, 2024 7:46am 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, 2024 9:41am 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, 2024 10:01am Squamous cell carcinoma of oropharynx acute December 26 12:32pm [facility] Work Phone: [phone]) 669-941207-08-2025 NotePatient Education Endocrinology Blood Glucose Monitoring, Adult To manage your diabetes, you will need to keep track of your blood sugar (glucose). Check your blood glucose as often as told. Keep a record of your results over time. This can help you: ??? Know when to adjust your diabetes management plan with your health care provider. ??? See how food, exercise, illness, and medicines affect your blood glucose. ??? Know what your blood glucose is at any time. Your provider will set specific goals for your blood glucose levels. In many cases, these goals maybe: ??? Before meals (preprandial): 80?130 mg/dL (4.4?7.2 mmol/L). ??? After meals (postprandial): below 180 mg/dL (10 mmol/L). ??? A1C level: less than 7%. Supplies needed: ??? Blood glucose meter. ??? Test strips for your meter. Each meter has its own strips. You must use the strips that came with your meter. ??? A needle to prick your finger (lancet). Do not use a lancet more than once. ??? A device that holds the lancet (lancing device). ??? A journal or logbook to write down [...] and do not use alternative sites, if: ??? You think you have low blood glucose (hypoglycemia). ??? You sometimes do not know that your blood glucose is getting low (hypoglycemia unawareness). General tips and recommendations Blood glucose log ??? Write down the result each time you check your blood glucose. Note anything that may be affecting your blood glucose. This can help you and your provider: ? Look for patterns over time. ? Adjust your management plan as needed. ??? Check if your meter has an lenin or lets you download your records to a computer. Most meters keep a record of glucose readings in the meter. If you have type 1 diabetes: ??? You may need to check your blood glucose 4 or more times a day. Check your blood glucose as often as told by your provider. This may include: ? Before each meal and snack. ? Two hours after a meal. ? Before bedtime. ? If you have symptoms of hypoglycemia. ? After treating your hypoglycemia. ? Before doing things that have a risk of injury, such as driving or using machinery. ? Before and after exercise. ? Between 2:00 a.m. and 3:00 a.m., as told. ??? You may need to check your blood glucose more often, such as up to 6?10 times a day, if: ? You have diabetes that is not well controlled. ? You are ill. ? You have a history of severe hypoglycemia. ? You have hypoglycemia unawareness. If you have type 2 diabetes: ??? You may need to check your blood glucose 2 or more times a day. Check your blood glucose as often as told by your provider. This may include: ? Before and after exercise. ? Before doing things that have a risk of injury, such as driving or using machinery. ??? You may need to check your blood glucose more often if: ? Your medicine is being adjusted. ? Your diabetes is not well controlled. ? You are ill. General tips ??? Make sure you always have your supplies with you. ??? After you use a few boxes of test strips, adjust (calibrate) your blood glucose meter. Follow the instructions that came with your meter. ??? If you have questions or need help, all blood glucose meters have a 24-hour hotline phone number that you can call. Also contact your provider with any questions or concerns. Where to find more information ??? The [place] Diabetes Association: diabetes.org ??? The Association of Diabetes Care & Education Specialists: diabeteseducator.org Contact a health care provider if: ??? Your blood glucose is at or above 240 mg/dL (13.3 mmol/L) for 2 days in a row. ??? You have been sick or have had a fever for 2 days or longer and are not getting better. ??? You have any of these problems for more than 6 hours: ? You cannot eat or drink. ? You have nausea or vomiting. ? You have diarrhea. Get help right away if: ??? Your blood glucose is lower than 54 mg/dL (3 mmol/L). ??? You become confused, or you have trouble thinking clearly. ??? You have trouble breathing. ??? You have moderate to high ketone levels in y (more content not included)... [facility]05-15-2025 History of Present illness Narrative* NILAY Morales - 09/28/2024 2:00 PM EDT Images from the original note were not included. [facility] Jeremie Bennett 1940 Subjective: Vertigo -he denies sx since last visit -denies recent falls -denies any changes Notes that he took oxycodone, went and took a hot shower and passed out in the shower last week. 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 -he notes this is overall at baseline -he states that he hasn't noticed this much due to his diagnosis of throat cancer and undergoing chemo and radiation -he has had significant decrease in appetite due to throat pain and his states that he is getting a G tube this week for feeding Chronic back/neck pain -his neck pain has been about the same since last visit -he denies pain into the arms -he admits a few CORTEZ -he has 2-3 per month -CORTEZ located occipital -Nurtec did not help -he was on Fiorcet and states this helped -Back pain in low back ISIDRO -hx of ISIDRO -he is using BiPAP nightly -he takes olanzapine -works better than PM meds -he gets about 8 hour of sleep [...] 5 mg, Daily aspirin 81 mg, Daily lksltcpjpq-qmuclyuqybdas-gbaenzen 50-325-40 MG tablet 1 tablet, Every 4 [...] Multiple Vitamin (multivitamin) tablet 1 tablet, Daily OLANZapine (ZYPREXA) 5 mg, Oral, Nightly omega-3 acid ethyl esters (LOVAZA) 1 g, [...] EXTRACTION Bilateral CERVICAL FUSION 2016 C3-C4-C5 CHOLECYSTECTOMY GASTROSTOMY TUBE PLACEMENT HERNIA REPAIR 2002 INSERT / REPLACE / REMOVE PACEMAKER 2015 pacemaker insertion OTHER SURGICAL HISTORY 2005 ablation OTHER SURGICAL HISTORY 2007 sphincterotomy ND CHOLECYSTECTOMY 02/2020 Laparoscopic Cholecystectomy - Wiecek ND IMPLANT ARTIFICIAL SPHINCTER 2017 PROSTATE 2000 TONSILLECTOMY 1970 US GUIDED BIOPSY LYMPH NODE SUPERFICIAL 06/05/2024 US GUIDED BIOPSY LYMPH NODE SUPERFICIAL 06/05/2024 Family History: Family History Problem Relation Name [...] syncope, facial asymmetry, speech difficulty and weakness. Objective: Vitals: Visit Vitals BP 110/68 Ht 5' 5 Wt 148 lb BMI 24.63 kg/m Smoking Status Former BSA 1.75 m Visit Vitals BP 110/68 Ht 5' 5 Wt 148 lb BMI 24.63 kg/m Smoking Status Former BSA 1.75 m Heart-RRR Neurological Exam Mental Status Awake, [...] 2+ 2+ Patellar 2+ 2+ Coordination Right: Wcebtk-io-espv normal.Left: Rwioxx-jk-eggp normal. Gait Casual gait is normal including stance, stride, and arm swing. Antalgic. Assessment: Diagnoses and all orders for this visit: Vertigo Lumbar radiculopathy Chronic bilateral low back pain, unspecified whether sciatica present Degenerative disc disease, cervical Migraine without aura and without status migrainosus, not intractable (CMS/HCC) Polyneuropathy Vertigo - R42 (Primary), vertigo manifested as [...] Patient did experience relief with vestibular therapy. He denies vertigo since his last visit. He did have an episode of syncope since his last visit in the setting of taking his Oxycodone and losing consciousness while in a very hot shower. Radiculopathy, lumbar region - M54.16 Back pain, chronic - M54.9, Patient notes chronic back pain that has been present for years. He notes symptoms are worse with prolonged standing and improved when leaning over or sitting. EMG BLE 12/2020 revealed remote S1 radiculopathy on the left, mild in degree. He has done PT and did well and con tinues with home exercises.He had ablation with pain management early August 2023. Overall at baseline. Neuropathy - G62.9, EMG BLE 12/25/2020 revealed early findings suggestive of polyneuropathy, howeverfindings may be age related. He was previously on gabapentin. His symptoms have increased to his bilateral feet manifested as increase in intensity to tingling manifested as sharp sensation that has i mproved significantly with cream. He was out of gabapentin and noticed no worsening . Zonegran provides benefit. He notes his symptoms are at baseline. Carpal tunnel syndrome on both sides - G56.03, EMG BUE 07/2020 revealed bilateral median neuropathies consistent with CTS mild on the right and minimal on the left. EMG BUE (09/09/2021) revealed bilateral median neuropathies minimal in degree electrically. He did not have benefit with wrist braces. Cervical radiculopathy - M54.12, Updated EMG BUE 08/2021 revealed remote C8 radiculopathy on the right, mild in degree electrically and remote C5 radiculopathy on the left, moderate in degree electrically. Patient reports history of neck surgery around 2013 and does note chronic neck pain and intermi ttent headaches. He has not responded to PT in the past. Neck pain - M54.2 Degenerative disc disease, cervical - M50.30,History of cervical spine surgery. MRI of the cervicalspine 08/12/22 revealed multilevel disc, facet, and uncovertebral [...] cardiac stents so we will avoid triptans. He has recently been diagnosed with throat cancer and is undergoing chemo and radiation. He has not been eating well due to throat pain and is going toget a G tube placed. Nurtec was not beneficial. Plan: 1. Continue Zonegran 25mg PO BID for neuropathic pain. 2. Continue Zanaflex 4mg 1 tab PO QHS for muscle spasms. 3. I counseled the patient on fall precautions. I discussed the high risk of trauma and debility associated with falls. He verbalized understanding. Follow up in 6 months documented in this encounterLaf[facility] [id number] History of Present illness Narrative* Veena Adkins, DO - 09/27/2024 1:30 PM EDT Images from the original note were [...] 5 mg, Daily aspirin 81 mg, Daily etjaqwkjps-uuaejbutkreul-ecwjftmz 50-325-40 MG tablet 1 tablet, Every 4 [...] PACEMAKER 2014 pacemaker insertion OTHER SURGICAL HISTORY 2005 ablation OTHER SURGICAL HISTORY 2007 sphincterotomy ND CHOLECYSTECTOMY 02/2020 Laparoscopic Cholecystectomy - Wiecek ND IMPLANT ARTIFICIAL SPHINCTER 2017 PROSTATE 2000 TONSILLECTOMY [...] schedule early next week. documented in this encounterLafayette [facility] Health [id number] Radiology Diagnostic study [facility] [place] [address] [place] [address] CT Scan Report Signed Patient: Jeremie Bennett MR#: [id number] : 1940 Acct:[id number] Age/Sex: 83 / M ADM Date: 5 Loc: ER Room: Type: [facility] ER Attending Dr: Copies to: Maru Hayes [...] spine as well as the hips and sacroiliacjoints. CT/CT abdomen pelvis w con IMPRESSION: There [...] Gordon M.D. 09/20/2024 8:03 PM Dictation Location: [facility]--17 Transcribed By: PERLA 09/20/242002 Dictated By: Rafi Gordon II, MD 09/20/241947 Signed By: 09/20/242002 [facility] Work Phone: [phone]) [phone] Hospital Discharge instructions Additional Instructions Please return [...] testing/monitoring to rule out evidence of possible cancer.[facility] Work Phone: 1([phone]) 598-227105-01-2025 NotePatient Education Nutrition BMI for Adults Body [...] for Disease Control and Prevention: cdc.gov ??? [place] Heart Association: heart.org ??? National Heart, Lung, and Blood [place]: nhlbi.nih.gov This information is not intended to replace advice given to you by your health care provider. Make sure you discuss any questions you have with your health care provider. Document Revised: 01/21/2023 Document Reviewed: 01/14/2023 [employer] Patient Education ? 2023 [employer] 09-11-2024 History of Present illness Narrative* Mary Schneider MD - 09/11/2024 2:00 PM EDT HEAD AND NECK SURGERY FOLLOW UP [facility] Referring Provider: Dr. Ham HPI I had [...] onc) and Dr Lamas (med onc) at [facility] after completion of chemoradiation treatment earlier this month. Weight down to 149 lbs (prior 170 lbs). Swallowing liquids, saw BARREL RACER during treatment, not recently. Had pacemaker replaced. [...] are normal to inspection and palpation. Thick mucouson uvula and posterior pharynx Salivary glands: There are no palpable masses of the parotid or submandibular glands. Neuro: Cranial nerves 2-12 are without obvious abnormality. Neck: The neck is soft and symmetric. Mild radiation changes, nontender. No enlarged lymph nodes Procedure Note: Diagnostic Flexible Laryngoscopy (08969) Indication: patient symptoms requiring evaluation of pharyngeal/laryngeal/hypopharyngeal structures Surgeon: Mary Schneider MD Informed Consent: [...] now s/p completion of chemoradiation treatment at [facility] August 2024 - Doing well overall, scope and exam findings as expected - Recommend continued BARREL RACER therapy, he will do this closer to home - Discussed imaging, he has PET scheduled in November - Will need post-treatment NavDx either now or at next appointment - Discussed NCCN guidelines and ongoing surveillance - Follow up with me in 2-3 months after PET, certainly sooner if any issues Mary Schneider MD documented in this [facility] Work Phone: 1(484) 620-869304-24-2025 Evaluation note* Diagnosis Onset Date Resolution Status Admit Date Tongue cancer acute September 07, 2024 9:14am CAD (coronary artery disease) acute September 11, 2024 9:55am Central sleep apnea acute September 11, 2024 9:55am DM (diabetes mellitus) acute Ap ril 2024 9:55am Essential hypertension acute Ap ril 2024 9:55am Obstructive sleep apnea acute A pril 2024 9:55am Squamous cell carcinoma of oropharynx acute September 11, 2024 9:55am Cancer associated pain acute Ma y 2024 2:36pm Squamous cell carcinoma of oropharynx acute September 26, 2024 2 :36pm Thrush, oral acute September 26 2:36pm Cancer associated pain acute Ju ly 2024 7:46am 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, 2024 7:46am 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, 2024 9:41am Tongue cancer acute November 23, 2024 10:01am [facility] Work Phone: 1(294) 260-526704-24-2025 Evaluation note* Diagnosis Onset Date Resolution Status Admit Date Tongue cancer deleted September 07, 2024 9:14am CAD (coronary artery disease) acute September 11, 2024 9:55am Central sleep apnea acute September 11, 2024 9:55am DM (diabetes mellitus) acute Ap ril 2024 9:55am Essential hypertension acute Ap ril 2024 9:55am Obstructive sleep apnea acute A pril 2024 9:55am Squamous cell carcinoma of oropharynx acute September 11, 2024 9:55am Cancer associated pain acute Ma y 2024 2:36pm Squamous cell carcinoma of oropharynx acute September 26, 2024 2 :36pm Thrush, oral acute September 26 2:36pm Cancer associated pain acute Ju ly 2024 7:46am 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, 2024 7:46am 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, 2024 9:41am 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, 2024 10:01am [facility] Work Phone: 1([phone]) 654-894604-07-2025 [place] [id number] Discharge Summary Signed Patient: Jeremie Bennett MR#: [id number] : 1940 Acct:[id number] Age/Sex: 83 / M Adm Date: 5 Loc: Room: [address] [place] [address]: Zeke Brennan MD Copies to: [...] better, fevers resolved promptly. Mostly diagnosis is aspirationpneumonia or pneumonitis in the setting of his dysphagiarelated to head and neck cancer. He received his radiation therapy. No complications occurred and he was discharged home stable condition the [facility] with few more days of oral antimicrobial [...] Continuity of Care Document Health Concerns: A [facility] screening has identified you as FRAIL or [...] day that are high in protein 4. THINKPOSITIVE ? Keep your mind active by being sociable and continuing to learn References: Stay Strong:Four Ways to Beat the Frailty Risk https://www.[facility].org/health/rfqfnakl-nzv-hpyndbdlfj/st lv-lubhyw-chqf- uoab-rx-qvcc-qrg-sxqdldv-uezt Exam Physical Exam Vital Signs: Temp Pulse [...] % (Auto) 75.8, Lymph % (Auto) 9.0, [place] % (Auto) 13.6, Eos % (Auto) 1.0, Baso % (Auto) 0.6, Nucleat RBC Rel Count 0.1, Neut # (Auto) 4.7, Lymph # (Auto) 0.6 L, [place] # (Auto) 0.8, Eos # (Auto) 0.1, [...] Appearance Clear, Urine pH 5.5, Ur Specific Gravity1.017, Urine Protein Negative, Urine Glucose (UA) Normal, [...] % (Auto) 77.0, Lymph % (Auto) 10.5, [place] % (Auto) 11.3, Eos % (Auto) 0.7, Baso % (Auto) 0.5, Nucleat RBC Rel Count 0.2, Neut # (Auto) 5.7, Lymph # (Auto) 0.8 L, [place] # (Auto) 0.8, Eos # (Auto) 0.1, Baso # (Auto) 0.0, Monocyte Dist Width 23.19 H, ESR 42 H, PT 12.9, INR 1.1, Lactic Acid 0.8, C-Reactive Prot, Quant Cancelled 08/20/24 12:20: PHA Creatinine Clear 58.71, Sodium 136, Potassium 3.7, Chloride 104, Carbon Ogfrcux71.4, Anion Gap 10.3, BUN 16, Creatinine 0.85, Est GFR (CKD- EPI) > 60.0, Glucose 106 H, Calcium 8.4 L, Total Bilirubin 0.6, AST 18, ALT 17, Alkaline Phosphatase 66, C-Reactive Prot, Quant 3.3 H, Total Protein 5.9 L, Albumin 3.4 L, Globulin 2.5, Albumin/Globulin Ratio 1.4 Documented By: Zeke Brennan MD 08/21/24 1407 Signed By: 08/21/24 1414 [facility]04-07-20[place] [address] Hospitalist Progress Note Signed Patient: Jeremie Bennett MR#: [id number] : 1940 Acct:[id number] Age/Sex: 83 / M Adm Date: 5 Loc: Room: 2A7538-9 Type: ADM IN Attending Dr: Zeke Brennan [...] of care and confirmed it with the re sident/student/PIERCER. This patient presented to the emergency department [...] Mg Tablet PO 08/21/25 20:59 QPM [facility] Fentanyl 12 mcg 08/21/24 11:30 08/21/24 11:29 Fentanyl Patch 12 Mcg/Hour Patch.Td72 TRANSDERML 12 mcg Q72HR [facility]IN[facility]IA Administration Protocol Fluticasone Propionate 2 spray 08/21/24 09:00 08/21/24 09:02 Fluticasone Propionate Keaton 120 Keaton/16 Gm Bottle INTRANASAL 08/21/25 08:59 2 spray QAM [facility] Administration Ceftriaxone Sodium 1 gm in 50 mls @ 100 mls/hr 08/21/24 22:00 Rocephin IV QHS [facility] Isosorbide Mononitrate 30 mg 08/21/24 09:00 08/21/24 09:00 Isosorbide Mononitrate 24hr Er 30 Mg Tab.Er.24h PO 08/21/25 08:59 30 mg QAM [facility] Administration Latanoprost 1 drops 08/21/24 21:00 Latanoprost 0.005% Op Soln 50 Drops/2.5 Ml Bottle EYE-BOTH 08/21/25 20:59 QPM [facility] Lidocaine/Prilocaine 1 applic 08/20/24 21:59 Lidocaine-Prilocaine Cr 2.5-2.5% 5 Gm Tube TOPICAL 08/20/25 21:58 ONCE PRN pain Metformin HCl 500 mg 08/21/24 08:00 08/21/24 09:00 Metformin 500 Mg Tablet PO 08/21/25 07:59 500 mg DAILY@0800 [facility] Administration Multi-Ingredient Mouthwash/Gargle 10 ml 08/20/24 22:47 [...] 08/21/24 09:00 08/21/24 09:00 Pantoprazole 40 Mg Tablet.Dr PO 08/21/25 08:59 40 mg BID CINTHIA [...] patient just completed his sixth and final weekof his most recent round this past . [...] Zeke Brennan MD 08/21/24 1135 Signed By: 08/21/24 1414 08/21/24 1152 [facility]04-07-2025 Consult note Author Yash Thomas [facility] Note Date/Time August 21, 2024 11:1 0am [facility] [address] [place] [address] Infect. Disease Consult Note Signed Patient: Jeremie Bennett MR#: [id number] : 1940 Acct:[id number] Age/Sex: 83 / M Adm Date: 5 Loc: Room: [address] [place] [address] Type: ADM IN Attending Dr: Zeke Brennan [...] at 10 PM CC: Zeke Brennan MD [facility] Medical History Pacemaker Prostate cancer surgery [...] Mother Heart disease [facility] of stroke [facility]: Diagnosed with Stroke Hypertension Emphysema lung ESRD (end stage renal disease) Sister Cancer [facility]: Diagnosed with Cancer Lymphoma Social History [...] 20 Mg Tablet) 20 mg PO QPM [facility] Stop: 08/21/25 20:59 Fentanyl (Fentanyl Patch 12 Mcg/Hour Patch.Td72) 12 mcg TRANSDERML Q72HR [facility]; Protocol Fluticasone Propionate (Fluticasone Propionate Keaton 120 Keaton/16 Gm Bottle) 2 spray INTRANASAL QAM [facility] Stop: 08/21/25 08:59 Last Admin: 08/21/24 09:02 Dose: 2 spray Ceftriaxone Sodium (Rocephin) 1 gm in 50 mls @ 100 mls/hr IV QHS [facility] Isosorbide Mononitrate (Isosorbide Mononitrate 24hr Er 30 Mg Tab.Er.24h) 30 mg PO QAM [facility] Stop: 08/21/25 08:59 Last Admin: 08/21/24 09:00 Dose: 30 mg Latanoprost (Latanoprost 0.005% Op Soln 50 Drops/2.5 Ml Bottle) 1 drops EYE-BOTH QPM [facility] Stop: 08/21/25 20:59 Lidocaine/Prilocaine (Lidocaine-Prilocaine Cr 2.5-2.5% 5 Gm Tube) 1 applic TOPICAL ONCE PRN PRN Reason: pain Stop: 08/20/25 21:58 Metformin HCl (Metformin 500 Mg Tablet) 500 mg PO DAILY@0800 [facility] Stop: 08/21/25 07:59 Last Admin: 08/21/24 09:00 Dose: 500 mg Multi-Ingredient Mouthwash/Gargle (Magic Mouthwash With Lidocaine) 10 ml PO QIDPRN PRN Reason: mucositis Stop: 08/20/25 22:46 Nystatin (Nystatin Susp 500,000 Unit/5 Ml Udc) 500,000 unit PO QID [facility] Stop: 08/21/25 08:59 Last Admin: 08/21/24 09:01 Dose: 500,000 unit Olanzapine (Olanzapine 2.5 Mg Tablet) 2.5 mg PO BID [facility] Stop: 08/21/25 08:59 Last Admin: 08/21/24 09:00 Dose: 2.5 mg Ondansetron HCl (Ondansetron Odt 4 Mg Tab.Rapdis) 8 mg PO Q8HR PRN PRN Reason: nausea and vomiting Stop: 08/20/25 22:49 Oxycodone HCl (Oxycodone Ir 5 Mg Tablet) 10 mg PO Q4HR PRN PRN Reason: pain Last Admin: 08/21/24 09:01 Dose: 10 mg Pantoprazole Sodium (Pantoprazole 40 Mg Tablet.Dr) 40 mg PO BID [facility] Stop: 08/21/25 08:59 Last Admin: 08/21/24 09:00 Dose: 40 mg Rivaroxaban (Rivaroxaban 10 Mg Tablet) 10 mg PO QHS [facility] Stop: 08/21/25 21:59 Sennosides (Sennosides 8.6 Mg [...] 10 Ml Syringe) 10 ml IV-PUSH Q8H [facility] Stop: 08/20/25 19:44 Last Admin: 08/21/24 03:06 Dose: Not Given Sotalol HCl (Sotalol 80 Mg Tablet) 40 mg PO BID [facility] Stop: 08/21/25 08:59 Last Admin: 08/21/24 09:01 Dose: 40 mg Tizanidine HCl (Tizanidine 4 Mg Tablet) 4 mg PO QPM [facility] Stop: 08/21/25 20:59 Zonisamide (Zonisamide 25 Mg Capsule) 25 mg PO BID [facility] Stop: 08/21/25 08:59 Last Admin: 08/21/24 [...] cultures. Documented By: Yash Thomas MD 08/21/24 1057 Signed By: <Electronically signed by MD Yash Thomas> 08/21/24 1116 [facility] Work Phone: 1(865) 340-652004-07-[address] [address] Infect. Disease Consult Note Signed Patient: Jeremie Bennett MR#: [id number] : 1940 Acct:[id number] Age/Sex: 83 / M Adm Date: 5 Loc: 3T Room: [address] [place] [address] Type: ADM IN Attending Dr: Zeke Brennan [...] at 10 PM CC: Zeke Brennan MD [facility] Medical History Pacemaker Prostate cancer surgery [...] (end stage renal disease) Sister [facility]: Diagnosed with Cancer Lymphoma Social History [...] 81 Mg Tab.Chew) 81 mg PO DAILY [facility] Stop: 08/21/25 08:59 Last Admin: 08/21/24 09:01 Dose: 81 mg Atorvastatin Calcium (Atorvastatin 20 Mg Tablet) 20 mg PO QPM [facility] [facility] Stop: 08/21/25 20:59 Clopidogrel Bisulfate (Clopidogrel Bisulfate 75 Mg Tablet) 75 mg PO DAILY [facility] Stop: 08/21/25 08:59 Last Admin: 08/21/24 09:00 Dose: 75 mg Dorzolamide HCl (Dorzolamide 2% Op Soln 200 Drops/10 Ml Bottle) 1 drops EYE-BOTH BID [facility] Stop: 08/21/25 08:59 Last Admin: 08/21/24 09:04 Dose: 1 drops Famotidine (Famotidine 20 Mg Tablet) 20 mg PO QPM [facility] Stop: 08/21/25 20:59 Fentanyl (Fentanyl Patch 12 Mcg/Hour Patch.Td72) 12 mcg TRANSDERML Q72HR [facility]; Protocol Fluticasone Propionate (Fluticasone Propionate Keaton 120 Keaton/16 Gm Bottle) 2 spray INTRANASAL QAMSCH Stop: 08/21/25 08:59 Last Admin: 08/21/24 09:02 Dose: 2 spray Ceftriaxone Sodium (Rocephin) 1 gm in 50 mls @ 100 mls/hr IV QHS [facility] Isosorbide Mononitrate (Isosorbide Mononitrate 24hr Er 30 Mg Tab.Er.24h) 30 mg PO QAM [facility] Stop: 08/21/25 08:59 Last Admin: 08/21/24 09:00 Dose: 30 mg Latanoprost (Latanoprost 0.005% Op Soln 50 Drops/2.5 Ml Bottle) 1 drops EYE-BOTH QPM [facility] Stop: 08/21/25 20:59 Lidocaine/Prilocaine (Lidocaine-Prilocaine Cr 2.5-2.5% 5 Gm Tube) 1 applic TOPICAL ONCE PRN PRN Reason: pain Stop: 08/20/25 21:58 Metformin HCl (Metformin 500 Mg Tablet) 500 mg PO DAILY@0800 [facility] Stop: 08/21/25 07:59 Last Admin: 08/21/24 09:00 Dose: 500 mg Multi-Ingredient Mouthwash/Gargle (Magic Mouthwash With Lidocaine) 10 ml PO QIDPRN PRN Reason: mucositis Stop: 08/20/25 22:46 Nystatin (Nystatin Susp 500,000 Unit/5 Ml Udc) 500,000 unit PO QID [facility] Stop: 08/21/25 08:59 Last Admin: 08/21/24 09:01 Dose: 500,000 unit Olanzapine (Olanzapine 2.5 Mg Tablet) 2.5 mg PO BID [facility] Stop: 08/21/25 08:59 Last Admin: 08/21/24 09:00 Dose: 2.5 mg Ondansetron HCl (Ondansetron Odt 4 Mg Tab.Rapdis) 8 mg PO Q8HR PRN PRN Reason: nausea and vomiting Stop: 08/20/25 22:49 Oxycodone HCl (Oxycodone Ir 5 Mg Tablet) 10 mg PO Q4HR PRN PRN Reason: pain Last Admin: 08/21/24 09:01 Dose: 10 mg Pantoprazole Sodium (Pantoprazole 40 Mg Tablet.Dr) 40 mg PO BID [facility] Stop: 08/21/25 08:59 Last Admin: 08/21/24 09:00 Dose: 40 mg Rivaroxaban (Rivaroxaban 10 Mg Tablet) 10 mg PO QHS [facility] Stop: 08/21/25 21:59 Sennosides (Sennosides 8.6 [...] 10 Ml Syringe) 10 ml IV-PUSH Q8H [facility] Stop: 08/20/25 19:44 Last Admin: 08/21/24 03:06 Dose: Not Given Sotalol HCl (Sotalol 80 Mg Tablet) 40 mg PO BID [facility] Stop: 08/21/25 08:59 Last Admin: 08/21/24 09:01 Dose: 40 mg Tizanidine HCl (Tizanidine 4 Mg Tablet) 4 mg PO QPM [facility] Stop: 08/21/25 20:59 Zonisamide (Zonisamide 25 Mg Capsule) 25 mg PO BID [facility] Stop: 08/21/25 08:59 Last Admin: [...] MD 08/21/24 1053 Signed By: 08/21/24 1110 [facility]04-07-2025 Radiology Diagnostic study note [facility] Main [place] [address] [place] [address] CT Scan Report Signed Patient: Jeremie Bennett MR#: [id number] : 1940 Acct:[id number] Age/Sex: 83 / M ADM Date: 5 Loc: Room: [address] [place] [address] Type: ADM IN Attending Dr: Jaiden Nance [...] Christian Melton M.D.08/21/2024 5:58 AM Dictation Location: [facility]--20 Transcribed By: [facility] 08/21/24 0558 Dictated By: Christian Melton DO 08/21/24 0555 Signed By: 08/21/24 0558 [facility]03-26-2025 Progress note Author Debora Wild [facility] Note Date/Time August 09, 2024 10: 25am [facility] [address] [place] [address] Palliative Medicine Encounter Patient: Jeremie Bennett MR#: [id number] : 1940 Acct:[id number] Age/Sex: 83 / M Copies to: RAYSHAWN [...] tablet 81 mg PO DAILY 06/14/24 08/09/24 wciszar-ambcktljwqfvy-gisoobcg 250 1 tab PO Q4-6H PRN pain [...] tabs 08/09/24 Is patient having pain?: Yes PMFSH Medical History (Updated 08/09/24 @ 09:38 by Viola Adan CMA) Pacemaker Prostate cancer surgery Neuropathy Vertigo Migraine [...] Alcohol Substance Abuse Comment: rare alcohol use [place] Symptom Assessment Scale Pain: throat pain controlled [...] recorder, note dictated by Debora Wild APRN, PIERCER-C ACHPN Dictated By: Debora Wild APRN DD/ 0945 Signed By: <Electronically signed by RAYSHAWN Wild> 08/09/[address] [place] [address] Work Phone: [phone] 823-940103-26-2025 [place] [address] Palliative Medicine Encounter Patient: Jeremie Bennett MR#: [id number] : 1940 Acct:[id number] Age/Sex: 83 / M Copies to: RAYSHAWN [...] tablet 81 mg PO DAILY 06/14/24 08/09/24 ycnuknh-bqvcziqqinipl-iwwiobdy 250 1 tab PO Q4-6H PRN pain [...] tabs 08/09/24 Is patient having pain?: Yes [facility] Medical History (Updated 08/09/24 @ 09:38 by Viola Adan [facility]) Pacemaker Prostate cancer surgery Neuropathy Vertigo Migraine [...] Alcohol Substance Abuse Comment: rare alcohol use [place] Symptom Assessment Scale Pain: throat pain controlled [...] recorder, note dictated by Debora Wild APRN, PIERCER-C ACHPN Dictated By: Debora Wild APRN DD/ 0945 Signed By: 08/09/24 1025 [facility]03-12-2025 Progress note Author Maru Ma [facility] Note Date/Time July 26, 2024 12: 02pm [facility] [address] [place] [address] Palliative Medicine Encounter Patient: Jeremie Bennett MR#: [id number] : 1940 Acct:[id number] Age/Sex: 83 / M Copies to: DO [...] tablet 81 mg PO DAILY 06/14/24 07/26/24 gptjdfh-fjizqykwbgsou-lnjfhdup 250 1 tab PO Q4-6H PRN pain [...] Alcohol Substance Abuse Comment: rare alcohol use [place] Symptom Assessment Scale See above Exam Exam [...] <Electronically signed by FELLOW Mario El> 07/26/24 4934 [facility] Work Phone: 1(262) 274-807903-12-[address] [place] [address] Palliative Medicine Encounter Patient: Jeremie Bennett MR#: [id number] : 1940 Acct:[id number] Age/Sex: 83 / M Copies to: DO [...] tablet 81 mg PO DAILY 06/14/24 07/26/24 tamuwxv-lplnicccvyrcd-nkcygphg 250 1 tab PO Q4-6H PRN pain [...] Alcohol Substance Abuse Comment: rare alcohol use [place] Symptom Assessment Scale See above Exam Exam [...] 0833 Signed By: 07/26/24 1202 07/26/24 0944 [facility]03-12-2025 Evaluation note* Diagnosis Onset Date Resolution Status Admit Date 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, 2024 8:13am Cancer associated pain acute [facility] 2024 8:22am Nausea acute July 26 8:22am 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, 2024 8:22am [facility] Work Phone: [phone]) 396-457703-12-2025 Evaluation note* Diagnosis Onset Date Resolution Status Admit Date 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, 2024 8:13am Cancer associated pain acute [facility] 2024 8:22am Nausea acute July 26 8:22am 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, 2024 8:22am Cancer associated pain acute [facility] 2024 7:29am Constipation acute August 02, 2024 7:29am Squamous cell carcinoma of oropharynx acute August 02, 2024 7:29am Thrush, oral acute August 02, 2024 7:29am [facility] Work Phone: 1([phone]) 239-160803-12-2025 Evaluation note* Diagnosis Onset Date Resolution Status Admit Date 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, 2024 8:13am Cancer associated pain acute [facility] 2024 8:22am Nausea acute July 26 8:22am 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, 2024 8:22am Cancer associated pain acute [facility] 2024 7:29am Constipation acute August 02, 2024 7:29am Squamous cell carcinoma of oropharynx acute August 02, 2024 7:29am Thrush, oral acute August 02, 2024 7:29am Cancer associated pain acute [facility] 2024 7:51am Constipation acute August 09, 2024 7:51am Nausea acute August 09 7:51am Squamous cell carcinoma of oropharynx acute August 09, 2024 7:51am Squamous cell carcinoma of oropharynx acute August 09, 2024 9:23am [facility] Work Phone: [phone] Evaluation note* Diagnosis Onset Date Resolution Status Admit Date 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, 2024 8:13am Cancer associated pain acute [facility] 2024 8:22am Nausea acute July 26 8:22am 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, 2024 8:22am Cancer associated pain acute [facility] 2024 7:29am Constipation acute August 02, 2024 7:29am Squamous cell carcinoma of oropharynx acute August 02, 2024 7:29am Thrush, oral acute August 02, 2024 7:29am Cancer associated pain acute [facility] 2024 7:51am Constipation acute August 09, 2024 7:51am Nausea acute August 09 7:51am Squamous cell carcinoma of oropharynx acute August 09, 2024 7:51am Squamous cell carcinoma of oropharynx acute August 09, 2024 9:23am Cancer associated pain acute Ap [facility] 2024 7:59am Constipation acute August 16, 025 7:59am Nausea acute August 16 7:59am Squamous cell carcinoma of oropharynx acute August 16, 2024 7:59am [facility] Work Phone: [phone] Evaluation note* Diagnosis Onset Date Resolution Status Admit Date 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, 2024 8:13am Cancer associated pain acute [facility] 2024 8:22am Nausea acute July 26 8:22am 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, 2024 8:22am Cancer associated pain acute [facility] 2024 7:29am Constipation acute August 02, 2024 7:29am Squamous cell carcinoma of oropharynx acute August 02, 2024 7:29am Thrush, oral acute August 02, 2024 7:29am Cancer associated pain acute [facility] 2024 7:51am Constipation acute August 09, 2024 7:51am Nausea acute August 09 7:51am Squamous cell carcinoma of oropharynx acute August 09, 2024 7:51am Squamous cell carcinoma of oropharynx acute August 09, 2024 9:23am Cancer associated pain acute [facility] 2024 7:59am Constipation acute August 16, 2 025 7:59am Nausea acute August 16 7:59am Squamous cell carcinoma of oropharynx acute August 16, 2024 7:59am Fever acute August 20 7:35pm Immunosuppression acute August 202024 7:35pm Pneumonia acute August 20 7:35pm [facility] Work Phone: [phone] Evaluation note* Diagnosis Onset Date Resolution Status Admit Date 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, 2024 8:13am Cancer associated pain acute [facility] 2024 8:22am Nausea acute July 26 8:22am 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, 2024 8:22am Cancer associated pain acute [facility] 2024 7:29am Constipation acute August 02, 2024 7:29am Squamous cell carcinoma of oropharynx acute August 02, 2024 7:29am Thrush, oral acute August 02, 2024 7:29am Cancer associated pain acute [facility] 2024 7:51am Constipation acute August 09, 2024 7:51am Nausea acute August 09 7:51am Squamous cell carcinoma of oropharynx acute August 09, 2024 7:51am Squamous cell carcinoma of oropharynx acute August 09, 2024 9:23am Cancer associated pain acute 2024 7:59am Constipation acute August 16, 7:59am Nausea acute August 16 7:59am Squamous cell carcinoma of oropharynx acute August 16, 2024 7:59am Fever acute August 20 7:35pm Immunosuppression acute August 202024 7:35pm Pneumonia acute August 20 7:35pm Squamous cell carcinoma of oropharynx acute August 20, 2024 7:35pm [facility] Work Phone: [phone] 109-345003-12-2025 Evaluation note* Diagnosis Onset Date Resolution Status Admit Date 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, 2024 8:13am Cancer associated pain acute [facility] 2024 8:22am Nausea acute July 26 8:22am 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, 2024 8:22am Cancer associated pain acute [facility] 2024 7:29am Constipation acute August 02, 2024 7:29am Squamous cell carcinoma of oropharynx acute August 02, 2024 7:29am Thrush, oral acute August 02, 2024 7:29am Cancer associated pain acute [facility] 2024 7:51am Constipation acute August 09, 2024 7:51am Nausea acute August 09 7:51am Squamous cell carcinoma of oropharynx acute August 09, 2024 7:51am Squamous cell carcinoma of oropharynx acute August 09, 2024 9:23am Cancer associated pain acute Ap r[facility] 2024 7:59am Constipation acute August 16, 025 [...] of oropharynx acute September 11, 2024 9:55am [facility] Work Phone: [phone]) [phone] Evaluation note* Diagnosis Onset Date Resolution Status Admit Date 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, 2024 8:13am Cancer associated pain acute [facility] 2024 8:22am Nausea acute July 26 8:22am 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, 2024 8:22am Cancer associated pain acute [facility] 2024 7:29am Constipation acute August 02, 2024 7:29am Squamous cell carcinoma of oropharynx acute August 02, 2024 7:29am Thrush, oral acute August 02, 2024 7:29am Cancer associated pain acute [facility] 2024 7:51am Constipation acute August 09, 2024 7:51am Nausea acute August 09 7:51am Squamous cell carcinoma of oropharynx acute August 09, 2024 7:51am Squamous cell carcinoma of oropharynx acute August 09, 2024 9:23am Cancer associated pain acute Ap r[facility] 2024 7:59am Constipation acute August 16, 025 [...] of oropharynx acute September 11, 2024 9:55am Cancer associated pain acute Ma y 2024 2:36pm Squamous cell carcinoma of oropharynx acute September 26, 2024 2 :36pm Thrush, oral acute September 26 2:36pm [facility] Work Phone: [phone] 890-294503-05-2025 NoteUTP Cardiovascular Medicine [facility] Patient here for follow-up after his generator change. He has been feeling well. Denies c/o CP, dyspnea, orthopnea, PND, LE edema, dizziness/LH, palpitations, syncope. Denies any fevers/chills. No drainage from incision. PACEMAKER GENERATOR REPLACEMENT PROCEDURE NOTE DATE OF PROCEDURE: 07/10/2024 PERFORMING PHYSICIAN: Dr. Stacey Brunner CONSENT: Patient LOCATION: EP Lab PROCEDURE PERFORMED: [...] Doxycycline 100mg bid x 2 weeks Stacey Brunner MD Cardiac Electrophysiology A/P: #SND s/p dual [...] a provider in 3 months. Boy Buitrago APRN-PAINTER FOREMAN [facility] [place] [address] Cancer Center Note Signed Patient: Jeremie Bennett MR#: [id number] : 1940 Acct:[id number] Age/Sex: 83 / M Type: REG AMB [...] by IHC was equivocal. As per the [facility] tumor board recommendation is either doing extensive [...] his week 1 of cisplatin. Labs at [facility] on 07/03/24 revealed hgb 13.3, cr is 1.0. He is having his labs here today.He had his pacemaker placed on 07/10/24 in [place]. 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 He is [...] positive squamous cell carcinoma. Tumor board at [facility] in [facility] and the recommended concurrent chemoradiation. Past medical [...] with concurrent chemoradiation. Since he lives in [place] he was referred by Dr. Mary Schneider from ENT at [facility] to our medical oncology and radiation oncology at [facility]. He is referred to medical oncology for [...] his week 1 of cisplatin. Labs at [facility] on 07/03/24 revealed hgb 13.3, cr is 1.0. He is having his labs here today.He had his pacemaker placed on 07/10/24 in [place]. Rest of 14 point systems were reviewed [...] PO QAM aspirin 81 mg PO DAILY rfyrqmg-drgvnbnicechu-adioibvt 250-250-65 mg (Excedrin Migraine) 1 tab PO [...] other concerns voiced at time of intake. [facility] Medical History Medical History (Updated 07/06/24 [...] Mother Heart disease History of stroke [facility] Problem: Diagnosed with Stroke Hypertension Emphysema lung ESRD (end stage renal disease) Sister [facility]: Diagnosed with Cancer Lymphoma Social History [...] MD DD/ 0837 Signed By: 07/12/24 0920 [facility]02-24-2025 NotePACEMAKER GENERATOR REPLACEMENT PROCEDURE NOTE DATE OF PROCEDURE: 07/10/2024 PERFORMING PHYSICIAN: Dr. Stacey Brunner CONSENT: Patient LOCATION: EP Lab PROCEDURE PERFORMED: [...] Doxycycline 100mg bid x 2 weeks Stacey Brunner MD Cardiac ElectrophysiologyTri[facility]02-20-2025 Progress note Author Debora Wild [facility] Note Date/Time July 06, 2024 11:40am [facility] [address] [place] [address] Palliative Medicine Encounter Patient: Jeremie Bennett MR#: [id number] : 1940 Acct:[id number] Age/Sex: 83 / M Copies to: RAYSHAWN [...] tablet 81 mg PO DAILY 06/14/24 06/22/24 dpqjxhy-kurpsjztyobds-gredzkpj 250 1 tab PO Q4-6H PRN pain [...] (psyllium husk)) Is patient having pain?: No [facility] Medical History (Updated 07/06/24 @ 09:33 [...] Alcohol Substance Abuse Comment: rare alcohol use [place] Symptom Assessment Scale Pain: intermittent scratchy throat/ [...] mins #about Jeremie: Kaya moved her from [place] collect Bioapter Exam Exam General - A&O, accompanied by [...] recorder, note dictated by Debora Wild APRN, PIERCER-C ACHPN Dictated By: Debora Wild APRN DD/ 0858 Signed By: <Electronically signed by RAYSHAWN Wild> 07/06/24 1142 [facility] Work Phone: 1(219) 858-179602-20-2025 [place] [address] Palliative Medicine Encounter Patient: Jeremie Bennett MR#: [id number] : 1940 Acct:[id number] Age/Sex: 83 / M Copies to: RAYSHAWN [...] tablet 81 mg PO DAILY 06/14/24 06/22/24 jqgxfan-nepotpmjdnypc-jeaxgqfz 250 1 tab PO Q4-6H PRN pain [...] (psyllium husk)) Is patient having pain?: No [facility] Medical History (Updated 07/06/24 @ 09:33 [...] Alcohol Substance Abuse Comment: rare alcohol use [place] Symptom Assessment Scale Pain: intermittent scratchy throat/ [...] mins #about Jeremie: Kaya moved her from [facility] Bioapter Exam Exam General - A&O, accompanied by [...] recorder, note dictated by Debora Wild APRN, PIERCER-C ACHPN Dictated By: Debora Wild APRN DD/ 0858 Signed By: 07/06/24 1140 [facility]02-18-2025 NoteNurse Consultation Note Reason for Visit patient [...] PRN, 1 refills fluticasone Nasal 0.05 mg/inh [place], See Instructions furosemide 20 mg Tab, 20 [...] influenza virus vaccine, inactivated 04/12/2023 Recorded SARSCoV2 mRNA(eahlyplfj-zytr-dnrvoi) vac 11/25/2021 Recorded SARS-CoV-2 (COVID-19) mRNA BNT-162b2 vax 03/06/2021 Recorded 2022-11-03: TPV80 influenza virus vaccine, inactivated 02/18/2021 Recorded SARS-CoV-2 (COVID-19) mRNA BNT-162b2 vax 06/27/2020 Recorded SARS-CoV-2 (COVID-19) Ad26 vaccine 06/27/2020 Recorded SARS-CoV-2 (COVID-19) mRNA BNT-162b2 vax 06/06/2020 Recorded SARS-CoV-2 (COVID-19) Ad26 vaccine 06/06/2020 Recorded influenza virus vaccine, inactivated 02/14/2020 Recorded influenza, unspecified formulation 01/22/2018 Recorded pneumococcal 13-valent vaccine 01/30/2014 [facility] NoteNurse Consultation Note Reason for Visit [...] PRN, 1 refills fluticasone Nasal 0.05 mg/inh [place], See Instructions furosemide 20 mg Tab, 20 [...] influenza virus vaccine, inactivated 04/12/2023 Recorded SARSCoV2 mRNA(zjkdzqsbo-jwue-icashd) vac 11/25/2021 Recorded SARS-CoV-2 (COVID-19) mRNA BNT-162b2 vax 03/06/2021 Recorded 2022-11-03: TPV80 influenza virus vaccine, inactivated 02/18/2021 Recorded SARS-CoV-2 (COVID-19) mRNA BNT-162b2 vax 06/27/2020 Recorded SARS-CoV-2 (COVID-19) Ad26 vaccine 06/27/2020 Recorded SARS-CoV-2 (COVID-19) mRNA BNT-162b2 vax 06/06/2020 Recorded SARS-CoV-2 (COVID-19) Ad26 vaccine 06/06/2020 Recorded influenza virus vaccine, inactivated 02/14/2020 Recorded influenza, unspecified formulation 01/22/2018 Recorded pneumococcal 13-valent vaccine 01/30/2014 [facility] History of Present illness Narrative* Isabel Romano, AUD - 06/23/2024 4:00 PM EST History: Patient was referred for an audiological evaluation. A baseline hearing exam was recommended prior to chemo treatment. Patient sees an ENT at [facility]. Patient is aware of hearing loss, [...] function Impressions: Results to Dr. Faustin at [facility] per patient. documented in this encounterLafayette Regional Health [id number] History of Present illness Narrative* Matteo Bell MD - 06/20/2024 3:15 PM EST Images from the original note were not included. Jeremie Bennett 1940 Jeremie Bennett is a 83 y.o. male presents with chief complaint of Consult (Port - Ref Dr LAMAS Tonguecancer/Having pacemaker generator change on 07-10-24 / [place] cardiology Dr Brunner.) HPI: Mr. Bennett is a 83 year [...] 5 mg, Daily aspirin 81 mg, Daily kstceiqgsx-tplgpixletycj-gkkiezaa 50-325-40 MG tablet 1 tablet, Every 4 [...] 2004 ablation OTHER SURGICAL HISTORY 2006 sphincterotomy [place] CHOLECYSTECTOMY 02/2020 Laparoscopic Cholecystectomy - [place] IMPLANT ARTIFICIAL SPHINCTER 2017 PROSTATE 2000 TONSILLECTOMY [...] placed on the right. documented in this encounterLafayette Regional Health [id number] Progress note Author Talib LamasNaval Hospital Bremertonkentrell [facility] Note Date/Time June 14, 2024 1 1:06am [place] [address] Cancer Center Note Signed Patient: Jeremie Bennett MR#: [id number] : 1940 Acct:[id number] Age/Sex: 83 / M Type: REG AMB [...] by IHC was equivocal. 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 He is [...] positive squamous cell carcinoma. Tumor board at [facility] in [facility] and the recommended concurrent chemoradiation. Past medical [...] with concurrent chemoradiation. Since he lives in [place] he was referred by Dr. Mary Schneider from ENT at [facility] to our medical oncology and radiation oncology at [facility]. He is referred to medical oncology for [...] PO DAILY aspirin 81 mg PO DAILY ajkptth-yulyxyrnpzkjv-zeiptzpc 250-250-65 mg (Excedrin Migraine) 1 tab PO [...] yellow fever card, magnet, caregiver resource list, [facility] regional nutrition guide, and cancer rehabilitation pamphlet provided anddiscussed with patient. Patient also provided with copy of consent, doctors business card, and clinic contact information. Printed drug information also provided and discussed with patient. All questions were answered to patient?s satisfaction and patient verbalizes understanding. ed by Dr Mary Schneider. Patient report some trouble swallowing as well. Had procedure 05/11 at . Patient is going to have pace maker replaced 07/10/2024 at [facility]. [facility] Medical History Medical History (Updated 06/14/24 @ 11:03 by EDSI Minaya) Tongue cancer Squamous cell carcinoma of [...] signed by Talib Faustin MD> 06/14/24 1106 [facility] Work Phone: 1(466) 392-892101-29-2025 Evaluation note* Diagnosis Onset Date Resolution Status Admit Date Squamous cell carcinoma of oropharynx acute June 14 9:25am Tongue cancer acute May 9:25am Squamous cell carcinoma of oropharynx acute June 14 10:28am [facility] Work Phone: 1(615) 635-620901-29-2025 Evaluation note* Diagnosis Onset Date Resolution Status Admit Date Squamous cell carcinoma of oropharynx acute June 14 9:25am Tongue cancer acute May 9:25am Squamous cell carcinoma of oropharynx acute June 14 10:28am Encounter for palliative care acute July 06, 2024 8:00am 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 06, 025 8:00am [facility] Work Phone: 1(169) 806-330801-29-2025 Evaluation note* Diagnosis Onset Date Resolution Status Admit Date Squamous cell carcinoma of oropharynx acute June 14 9:25am Tongue cancer acute May 9:25am Squamous cell carcinoma of oropharynx acute June 14 10:28am Encounter for palliative care acute July 06, 2024 8:00am 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 06, 025 8:00am Cancer associated pain acute Fe bru2024 7:36am Nausea acute July 12, 2024 7:36am 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 12, 025 7:36am 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 12, 025 8:29am Tongue cancer acute July 122024 8:29am [facility] Work Phone: 1([phone]) 902-343101-29-2025 [facility] [place] [address] Cancer Center Note Signed Patient: Jeremie Bennett MR#: [id number] : 1940 Acct:[id number] Age/Sex: 83 / M Type: REG AMB [...] by IHC was equivocal. 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 He is [...] positive squamous cell carcinoma. Tumor board at [facility] in mid and the recommended concurrent chemoradiation. [...] with concurrent chemoradiation. Since he lives in [place] he was referred by Dr. Mary Schneider from ENT at [facility] to our medical oncology and radiation oncology at [facility]. He is referred to medical oncology for [...] PO DAILY aspirin 81 mg PO DAILY fhvjlmg-szecjslgqqccp-fwjrocyt 250-250-65 mg (Excedrin Migraine) 1 tab PO [...] yellow fever card, magnet, caregiver resource list, [facility] regional nutrition guide, and cancer rehabilitation pamphlet provided anddiscussed with patient. Patient also provided with copy of consent, doctors business card, and clinic contact information. Printed drug information also provided and discussed with patient. All questions were answered to patient?s satisfaction and patient verbalizes understanding. ed by Dr Mary Schneider. Patient report some trouble swallowing as well. Had procedure 05/11 at . Patient is going to have pace maker replaced 07/10/2024 at [facility]. [facility] Medical History Medical History (Updated 06/14/24 [...] Social History (Updated 06/13/24 @ 14:48 by Vanessa Singer Lyssa) Smoking status: Former smoker What tobacco products [...] MD DD/ 0953 Signed By: 06/14/24 1106 [facility]01-20[facility]2025 Hospital Discharge instructions* Discharge Instructions* Bob Larson [...] questions related to your procedure: Please call [phone] between the hours of 7:00am-5:00pm Wednesday through Wednesday. Please call [phone] after 5:00pm and on weekends and holidays. In the event of an emergency call 911 or go to your nearest emergency room. documented in [facility] encounter[facility] Work Phone: 1(150) 595-552601-20-2025 Miscellaneous Notes* Post-Procedure Note - Juan Albright [...] and Time Out: [facility] - Pre-procedure Verification completed TIME OUT - Final Verification completed immediately prior to procedure start DEBRIEF completed General Information: Date/Time of Procedure: 06/05/24 at 4:17 PM Indication(s): Hx of SCC, enlarged left cervical chain lymph node Findings: See PACS Procedure performed by: Juan Albright MD Wastewater Supervisor(s): Dr. Gaby Perez MD Estimated Blood Loss [...] Albright MD, PGY-6 Interventional Radiology IR pager: [phone] NON-Urgent construction project engineer weekends and after hours weekdays (5pm - 5am) IR pager: [phone] Urgent & emergent construction project engineer weekends and after hours weekdays (5pm-7am) IR pager: [phone] * Pre-Procedure Note - Juan Albright MD [...] by mouth once daily., Disp: , Rfl: mwukwmgtrz-syezxfycdvity-qwgp 50-325-40 mg tablet, Take 1 tablet by [...] been discussed with the patient and/or their guest services representative. All questions answered and they agree to proceed. Juan Albright MD, PGY-6 Vascular & Interventional Radiology IR pager: [phone] NON-Urgent construction project engineer weekends and after hours weekdays (5pm - 5am) IR pager: [phone] Urgent & emergent construction project engineer weekends and after hours weekdays (5pm-7am) IR pager: [phone] documented in this encounterBarnesville Hospital Work Phone: 1(695) 939-883601-20-2025 Note* Post-Procedure Note - Juan Albright MD [...] PACS Procedure performed by: Juan Albright MD Wastewater Supervisor(s): Dr. Gaby Perez MD Estimated Blood Loss [...] Albright MD, PGY-6 Interventional Radiology IR pager: [phone] NON-Urgent construction project engineer weekends and after hours weekdays (5pm - 5am) IR pager: [phone] Urgent & emergent construction project engineer weekends and after hours weekdays (5pm-7am) IR pager: [phone] [facility] Work Phone: 1(456) 355-469501-20-2025 Note* Pre-Procedure Note - Juan Albright MD [...] by mouth once daily., Disp: , Rfl: vwjqlxhkeq-lcppecfwsjsag-wzgc 50-325-40 mg tablet, Take 1 tablet by [...] been discussed with the patient and/or their guest services representative. All questions answered and they agree to proceed. Juan Albright MD, PGY-6 Vascular & Interventional Radiology IR pager: [phone] NON-Urgent construction project engineer weekends and after hours weekdays (5pm - 5am) IR pager: [phone] Urgent & emergent construction project engineer weekends and after hours weekdays (5pm-7am) IR pager: [phone] [facility] Work Phone: 1([phone]) 987-143501-14-2025 History of Present illness Narrative* Mary Schneider MD - 05/30/2024 11:45 AM EST HEAD AND NECK SURGERY FOLLOW UP [facility] Referring Provider: Dr. Ham HPI I had [...] lymph node Procedure Note: Diagnostic Flexible Laryngoscopy (91213) Indication: patient symptoms requiring evaluation of pharyngeal/laryngeal/hypopharyngeal structures Surgeon: Mary Schneider MD Informed Consent: [...] proceed with concurrent chemoradiation. He lives in [place], referrals to med onc and rad onc placed today to be setup locally at [facility]. I have also reached out to Dr Gray - He will need iris dx testing done prior to starting treatment - I will follow up the biopsy and call him with results - I will see him after treatment for cancer surveillance Mary Schneider MD 24 modifier used due to extensive discussion and coordination of cancer treatment documented in this encounterBarnesville Hospital Work Phone: 1(343) 217-157812-26-2024 Hospital Discharge instructions* Discharge Instructions* Jessica Carreon [...] to your nearest ED. 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] Procedures Direct Laryngoscopy 22453 - ND LARYNGOSCOPY W/WO TRACHEOSCOPY DX EXCEPT [facility]choscopy 98600 - [facility] DX W/CELL WASHG SPX Esophagoscopy 81987 - [place] ESOPHAGOSCOPY FLEXIBLE TRANSORAL DIAGNOSTIC Surgeons Panel 1: * Mary Schneider - Primary Panel 2: * Mary Schneider - Primary Resident/Fellow/Other Wastewater Supervisor: Surgeons and Role: Panel 1: * Riana Vela PA-C - Resident - Assisting Staff: Budget Coordinator: Jameel Camargo Person: Simon Scrub Person: Reggie Anesthesia Staff: Anesthesiologist: Gabo Munoz MD Component Overhaul Operator: Candice Aceves MD; Delvis Santana MD Procedure [...] TONGUE DORSUM BIOPSY SURGICAL PATHOLOGY EXAM Mary Schneider MD 05/11/2024 0802 2 : RIGHT BASE OF TONGUE #2 Tissue TONGUE DORSUM BIOPSY SURGICAL PATHOLOGY EXAM Mary Schneider MD 05/11/2024 0822 3 : RIGH BASE OF TONGUE Tissue TONGUE RESECTION SURGICAL PATHOLOGY EXAM Mary Schneider MD 05/11/2024 0851 Drains and/or Catheters: * [...] team. Time out was performed by Dr. Schneider. First, the patient's base of tongue, tonsils [...] and scrubbed for the entire procedure. 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] Procedures Direct Laryngoscopy 80542 - ND LARYNGOSCOPY W/WO TRACHEOSCOPY DX EXCEPT Bronchoscopy 53078 - ND BRN[facility] INCL FLUOR GDNCE DX W/CELL WASHG SPX Esophagoscopy 02027 - ND ESOPHAGOSCOPY FLEXIBLE TRANSORAL DIAGNOSTIC Surgeons Panel 1: * Mary Schneider - Primary Panel 2: * Mary Schneider - Primary Resident/Fellow/Other Wastewater Supervisor: Surgeons and Role: Panel 1: * Riana Vela PA-C - Resident - Assisting Staff: Budget Coordinator: Jameel Fitzgeraldub Person: Simon Camargo Person: Reggie Anesthesia Staff: Anesthesiologist: Gabo Munoz MD Component Overhaul Operator: Candice Aceves MD; Delvis Santana MD Procedure [...] TONGUE DORSUM BIOPSY SURGICAL PATHOLOGY EXAM Mary Schneider MD 05/11/2024 0802 2 : RIGHT BASE OF TONGUE #2 Tissue TONGUE DORSUM BIOPSY SURGICAL PATHOLOGY EXAM Mary Schneider MD 05/11/2024 0822 3 : RIGH BASE OF TONGUE Tissue TONGUE RESECTION SURGICAL PATHOLOGY EXAM Mary Schneider MD 05/11/2024 0851 Drains and/or Catheters: * [...] team. Time out was performed by Dr. Schneider. First, the patient's base of tongue, tonsils [...] and scrubbed for the entire procedure. Mary Schneider documented in this [facility] Work Phone: 1([phone]) 849-660612-26-2024 History and physical note* Jessica Carreon MD [...] resection. Jessica Carreon MD Cosigned by Mary Schneider MD at 05/11/2024 6:34 AM EST [facility] Work Phone: 1([phone]) 466-282712-26-2024 History and physical note* Jessica Carreon MD [...] resection. Jessica Carreon MD Cosigned by Mary Schneider MD at 05/11/2024 6:34 AM EST documented in this encounterBarn[facility]ville Hospital Work Phone: 1(443) 721-312312-24-2024 History of Present illness Narrative* Mary Ismael - 05/09/2024 10:02 AM EST Pharmacy Medication History Review Jeremie Bennett is a 83 y.o. male who is planned to be admitted for Malignant neoplasm of floor of mouth. Pharmacy called the patient prior to their scheduled procedure and reviewed the patient's vvsrx-it-auhxtswqw medications for accuracy. Medications ADDED: none Medications [...] used to complete the med history include: [facility] Pharmacy dispense history Patient interview Chart Review Care Everywhere Below are additional concerns with the patient's GUIDE list. Patient states they are taking #1 tablet of metformin XR 500mg once daily. L.F. 02/24/24 #200/100d (prescription states #1BID) Patient states they are taking #1 tablet of rosuvastatin 10mg daily. L.F. 05/31/23 #90/90d. There is no recent fill history to confirm Mary Guevara [facility] Please reach out via Secure Chat for questions documented in this encounterBarnesville Hospital Work Phone: [phone]) 977-434612-10-2024 NoteUT Electrophysiology Consult Note [place] Cardiology [facility] Reason for visit: Device at [...] Heart valve disease Hyperlipidemia [place] (ventricular tachycardia) ([facility]) PSH: Past Surgical History: Procedure Laterality Date ABLATION OF DYSRHYTHMIC FOCUS CARDIAC CATHETERIZATION INSERT / REPLACE / REMOVE PACEMAKER SH: Social Determinants of Health Tobacco Use: Medium Risk (05/11/2024) [facility] Patient History Smoking Tobacco Use: Former Smokeless Tobacco Use: Former Passive Exposure: Not on file Alcohol Use: Not on file Financial Resource Strain: Not on file Food Insecurity: Not on file Transportation Needs: Not on file Physical Activity: Not on file Stress: Not on file Social Connections: Not on file Intimate Partner Violence: Unknown (07/08/2023) [place] Safety & Environment Fear of Current or Ex-Partner: Not on file Emotionally Abused: Not on file Physically Abused: Not on file Sexually Abused: Not on file Physically or Sexually Abused: Not on file Depression: Not at risk (04/07/2024) [facility] PHQ-2 Patient Health Questionnaire-2 Score: 0 [...] TSH , T3 TO (more content not included)...[facility]12-02-2024 NotePatient Education Nutrition BMI for Adults Body [...] for Disease Control and Prevention: cdc.gov ??? [place] Heart Association: heart.org ??? National Heart, Lung, and Blood [place]: nhlbi.nih.gov This information is not intended to replace advice given to you by your health care provider. Make sure you discuss any questions you have with your health care provider. Document Revised: 01/21/2023 Document Reviewed: 01/14/2023 [employer] Patient Education ? 2023 [email or web address] 04-07-2024 History of Present illness Narrative* Mary Schneider MD - 04/07/2024 10:45 AM EST HEAD AND NECK SURGERY CONSULT [facility] Referring Provider: Dr. Ham HPI I had [...] lymph node Procedure Note: Diagnostic Flexible Laryngoscopy (82334) Indication: patient symptoms requiring evaluation of pharyngeal/laryngeal/hypopharyngeal structures Surgeon: Mary Schneider MD Informed Consent: [...] for this, has a pacemaker and seeing healthcare economics manager soon. Will follow up biopsy and call him with the results Mary Schneider MD documented in this [facility] Work Phone: 1([phone]) 917-959211-13-2024 History of Present illness Narrative* Luc Ham MD - 03/29/2024 10:20 AM EST Subjective Patient ID: Jeremie Bennett is a 83 y.o. male who presents for Mouth Lesions (Follow up PET [facility] 03/27/24) Pet scan reviewed and there [...] History of malignant neoplasm of prostate 04/03/2022 [place] (hard of hearing) 04/03/2022 Hypercholesterolemia (CMS/HCC) 04/03/2022 [...] Swollen lymph nodes 04/14/2023 Thoracic aortic ectasia ([facility]/HCC) 01/27/2024 Vitamin D deficiency 04/03/2022 Resolved Ambulatory Problems Diagnosis Date Noted Bloating 01/27/2024 Cellulitis of toe of left foot 01/27/2024 Cellulitis of toe of right foot 01/27/2024 Chest wall pain 04/03/2022 Gallstones 04/03/2022 COVID-19 11/10/2022 Entrapment of left ulnar nerve 01/27/2024 Entrapment of right ulnar nerve 01/27/2024 Fecal soiling 04/03/2022 Fecal urgency 04/14/2023 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) Migraine headache ([facility]) Pain management Paronychia of great toe Personal history of other medical treatment 04/2018 Sinus tarsi syndrome of right foot Sleep apnea Toe pain, right Type 2 diabetes mellitus with diabetic neuropathy ([facility]) Past Surgical History: Procedure Laterality Date CARDIAC CATHETERIZATION 08/30/2019 CATARACT EXTRACTION Bilateral CERVICAL FUSION 2016 C3-C4-C5 CHOLECYSTECTOMY HERNIA REPAIR 2002 INSERT / REPLACE / REMOVE PACEMAKER 2015 pacemaker insertion OTHER SURGICAL HISTORY 2005 ablation OTHER SURGICAL HISTORY 2007 sphincterotomy ND CHOLECYSTECTOMY 02/2020 Laparoscopic Cholecystectomy - [place] IMPLANT ARTIFICIAL SPHINCTER 2017 PROSTATE 2000 TONSILLECTOMY 1970 Allergies Allergen Reactions Niacin Itching and Unknown Wound Dressing Adhesive Unknown Current Outpatient Medications on File Prior to Visit Medication Sig Dispense Refill amLODIPine (Norvasc) 5 MG tablet Take 5 mg by mouth in the morning. aspirin 81 MG EC tablet Take 81 mg by mouth in the morning. liysvxxkxn-dnjeyiwowisup-gunxhqwa 50-325-40 MG tablet Take 1 tablet by [...] completed for surveillance exams. documented in this encounterLafayette Regional Health [id number] History of Present illness Narrative* Kandi Rodriguez, [...] PATIENT PRESENTS WITH AN IMPLANTABLE OR ATTACHED AREA DEVELOPMENT CONSULTANT: No CREATININE: No results found for: CREAT [...] radiation safety can be found usingthis link: [email or web address] 20Diagnostic%20Nuclear%20Medicine%[email or web address] SIGNATURE: FLORY Rodriguez) PATIENT NAME: Jeermie Bennett DATE: March 27, 2024 TIME: 10:14 AM PAGER/CONTACT #: documented [facility]-2024 NoteHNO ID: [id number] Author: KANDI RODRIGUEZ RT(R) Service: ? Author [...] PATIENT PRESENTS WITH AN IMPLANTABLE OR ATTACHED AREA DEVELOPMENT CONSULTANT: No CREATININE: No results found for: CREAT [...] 1003 PATIENT DISCHARGED TO: Ambulatory patient, left [place] department area. Is this a therapy: No A Diagnostic radioactive procedure has taken place, with no further precautions necessary other than routine body substance precautions. More information regarding radiation safety can be found using this link: [email or web address] 20Diagnostic%20Nuclear%20Medicine%20Procedures.pdf SIGNATURE: Kandi Rodriguez, RT(R) PATIENT NAME: Jeremie Bennett DATE: March 27, 2024 TIME: 10:14 AM PAGER/CONTACT #:[facility]10-23-2024 History of Present illness Narrative* Luc Ham MD - 03/08/2024 9:40 AM EDT Images from the original note were not included. Subjective Patient ID: Jeremie Bennett is a 83 y.o. 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) 04/03/2022 Hemorrhoids 01/27/2024 History of colon polyps 01/27/2024 History of malignant neoplasm of prostate 04/03/2022 [place] (hard of hearing) 04/03/2022 Hypercholesterolemia ([facility]) 04/03/2022 Hyperlipidemia ([facility]) 04/03/2022 Insomnia 04/03/2022 Internal derangement of right knee 01/27/2024 Irregular bowel habits 04/14/2023 Lump on neck 04/14/2023 Migraines (CMS/[facility]) 04/03/2022 Aortic valve regurgitation 04/26/2019 Mitral valve regurgitation 04/26/2019 Neuropathy 04/03/2022 NPH (normal pressure hydrocephalus) ([facility]) 04/03/2022 Central sleep apnea 01/27/2024 Obstructive sleep [...] reflux disease) HTN (hypertension) (CMS/HCC) Migraine headache ([facility]) Pain management Paronychia of great toe Personal history of other medical treatment 04/2018 Sinus tarsi syndrome of right foot Sleep apnea Toe pain, right Type 2 diabetes mellitus with diabetic neuropathy ([facility]) Past Surgical History: Procedure Laterality Date CARDIAC CATHETERIZATION 08/30/2019 CATARACT EXTRACTION Bilateral CERVICAL FUSION 2016 C3-C4-C5 CHOLECYSTECTOMY HERNIA REPAIR 2002 INSERT / REPLACE / REMOVE PACEMAKER 2015 pacemaker insertion OTHER SURGICAL HISTORY 2005 ablation OTHER SURGICAL HISTORY 2007 sphincterotomy ND CHOLECYSTECTOMY 02/2020 Laparoscopic Cholecystectomy - [place] IMPLANT ARTIFICIAL SPHINCTER 2017 PROSTATE 2000 TONSILLECTOMY 1970 Allergies Allergen Reactions Niacin Itching and Unknown Wound Dressing Adhesive Unknown Current Outpatient Medications on File Prior to Visit Medication Sig Dispense Refill amLODIPine (Norvasc) 5 MG tablet Take 5 mg by mouth in the morning. aspirin 81 MG EC tablet Take 81 mg by mouth in the morning. mlvamenzgx-rmskvrabkexar-xbtdtsph 50-325-40 MG tablet Take 1 tablet by [...] suspicious for the primary documented in this encounterLafayette Regional Health CenterUnkkjuywua54-17-4792 Telephone encounter Note* Telephone Encounter - Antoinette Ham - 03/06/2024 11:18 AM EDT Pt is scheduled for 03/08/[address] Ham[address] [facility] CenterPicniowlta79-28-8978 Miscellaneous Notes* Telephone Encounter - Antoinette Ham - 03/06/2024 11:18 AM EDT Pt is scheduled for 10/23/[address] Ham. * Telephone Encounter - Luc Ham MD - 03/06/2024 10:18 AM EDT Move up pt's appt documented in this encounterLafayette Regional Health CenterAzntvqippi73-70-1935 Telephone encounter Note* Telephone Encounter - Luc Ham MD - 03/06/2024 10:18 AM EDT Move up pt's appt [facility] Work Phone: 1(574) 148-155010-02-2024 History of Present illness Narrative* Luc Ham [...] Colon polyp 01/27/2024 Type 2 diabetes mellitus ([facility]CC) 01/27/2024 Type 2 diabetes mellitus without complication, without long-term current use of insulin (CMS/[facility]) 04/14/2023 Diabetic autonomic neuropathy associated with type 2 diabetes mellitus (CMS/HCC) 04/14/2023 Diabetic peripheral neuropathy associated with type 2 diabetes mellitus (CMS/HCC) 01/27/2024 Diverticulosis 01/27/2024 Dysphagia 04/14/2023 Essential hypertension (CMS/HCC) 04/03/2022 Excessive daytime sleepiness 01/27/2024 FH: stomach cancer 04/14/2023 Chronic GERD 01/27/2024 GERD with apnea 01/27/2024 Glaucoma ([facility]/HCC) 04/03/2022 Hemorrhoids 01/27/2024 History of colon polyps 01/27/2024 History of malignant neoplasm of prostate 04/03/2022 [place] (hard of hearing) 04/03/2022 Hypercholesterolemia ([facility]) 04/03/2022 Hyperlipidemia ([facility]/HCC) 04/03/2022 Insomnia 04/03/2022 Internal derangement of right knee 01/27/2024 Irregular bowel habits 04/14/2023 Lump on neck 04/14/2023 Migraines ([facility]CC) 04/03/2022 Aortic valve regurgitation 04/26/2019 Mitral valve regurgitation 04/26/2019 Neuropathy 04/03/2022 NPH (normal pressure hydrocephalus) ([facility] [place] 04/03/2022 Central sleep apnea 01/27/2024 Obstructive sleep [...] Presence of cardiac pacemaker 03/14/2021 Prostate cancer ([facility]) 04/03/2022 Prostatitis 04/14/2023 Skin cancer 04/03/2022 Swollen lymph nodes 04/14/2023 Thoracic aortic ectasia (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) Migraine headache ([facility]) Pain management Paronychia of great toe Personal history of other medical treatment 04/2018 Sinus tarsi syndrome of right foot Sleep apnea Toe pain, right Type 2 diabetes mellitus with diabetic neuropathy ([facility] Past Surgical History: Procedure Laterality Date CARDIAC CATHETERIZATION 08/30/2019 CATARACT EXTRACTION Bilateral CERVICAL FUSION 2016 C3-C4-C5 CHOLECYSTECTOMY HERNIA REPAIR 2002 INSERT / REPLACE / REMOVE PACEMAKER 2015 pacemaker insertion OTHER SURGICAL HISTORY 2005 ablation OTHER SURGICAL HISTORY 2007 sphincterotomy ND CHOLECYSTECTOMY 02/2020 Laparoscopic Cholecystectomy - [place] ND IMPLANT ARTIFICIAL SPHINCTER 2017 PROSTATE 2000 TONSILLECTOMY 1970 Allergies Allergen Reactions Niacin Itching and Unknown Wound Dressing Adhesive Unknown Current Outpatient Medications on File Prior to Visit Medication Sig Dispense Refill amLODIPine (Norvasc) 5 MG tablet Take 5 mg by mouth in the morning. aspirin 81 MG EC tablet Take 81 mg by mouth in the morning. 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 Robins in [place] -he is following up with them next [...] Oral, Daily aspirin 81 mg, Oral, Daily vwmdjozdfj-fytdheykmtcny-zqyjhcow 50-325-40 MG tablet 1 tablet, Oral, Every [...] 2005 ablation OTHER SURGICAL HISTORY 2007 sphincterotomy ND CHOLECYSTECTOMY 02/2020 Laparoscopic Cholecystectomy - [place] ND IMPLANT ARTIFICIAL SPHINCTER 2017 PROSTATE 2000 TONSILLECTOMY [...] 2+ 2+ Patellar 2+ 2+ Coordination Right: Xoldgy-gt-wlhq normal.Left: Lxmwch-vz-msqb normal. Gait Casual gait is normal including [...] up in 6 months documented in this encounterLafayette Regional Health [id number] Telephone encounter Note* Telephone Encounter - Carlitos Beckman - 02/07/2024 9:29 AM EDT Images from the original note were not included. IPMN surveillance. Review OSH images and advise please Chacho Coffey MRI [facility] Pancreatography 11/09/2023 [facility]09-23-[facility]24 Miscellaneous Notes* Telephone Encounter - Carlitos Beckman - 02/07/2024 9:29 AM EDT Images from the original note were not included. IPMN surveillance. Review OSH images and advise please Chacho Lalit MRI [facility] Pancreatography 11/09/2023 * Telephone Encounter [...] and it was completed in 12/2023 at [facility]. Our office will request results for Dr. Pringle's review. Follow up will be determined upon Dr. Pringle's review of results. documented [facility] Telephone encounter Note * Telephone Encounter - Carlitos Beckman - 02/04/2024 9:03 AM EDT Surveillance imaging completed at OSH for IPMN surveillance. [facility]09-18-2024 Telephone encounter Note* Telephone Encounter - Carlitos Beckman - 02/02/2024 8:57 AM EDT Call to patient to discuss plan of care. Surveillance imaging needed to evaluate pancreas cyst. Dx: IPMN Per Dr. Vaishali Pringle- recommended repeat MRI in 1 year Last imaging 02/17/2024 Orders placed: MRI Pancreas w/wo IVCON Patient's local GI ordered MRI and it was completed in 12/2023 at [facility]. Our office will request results for Dr. Pringle's review. Follow up will be determined upon Dr. Pringle's review of results. [facility]09-17-2024 History of Present illness Narrative* Luc Ham MD - 02/01/2024 1:10 PM EDT Subjective Patient ID: Jeremie eBnnett is a 83 y.o. male who presents [...] Diagnosis Date Noted Arteriosclerosis of coronary artery ([facility]) 01/20/2019 Arthritis of ankle, right 01/27/2024 Arthritis of carpometacarpal (CMC) joint of left thumb 01/27/2024 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[facility] 01/27/2024 BMI 29.0-29.9,adult 01/27/2024 Cardiac dysrhythmia 04/03/2022 Ventricular tachycardia ([facility]) 01/27/2024 Carpal tunnel syndrome, left 01/27/2024 Carpal tunnel syndrome, right 01/27/2024 Cervical lymphadenopathy 01/27/2024 Spondylosis of cervical spine 01/27/2024 Cervical vertebral fusion 04/03/2022 Spondylosis of lumbar spine 01/27/2024 Chronic venous insufficiency 01/27/2024 Colon polyp 01/27/2024 Type 2 diabetes mellitus ([facility] [place] 01/27/2024 Type 2 diabetes mellitus without complication, without long-term current use of insulin ([facility] [place]) 04/14/2023 Diabetic autonomic neuropathy associated with type 2 diabetes mellitus ([facility] [place] 04/14/2023 Diabetic peripheral neuropathy associated with type 2 diabetes mellitus ([facility] [place] 01/27/2024 Diverticulosis 01/27/2024 Dysphagia 04/14/2023 Essential hypertension (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[facility]) 01/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 Migraine headache ([facility] [place] Pain management Paronychia of great toe Personal history of other medical treatment 04/2018 Sinus tarsi syndrome of right foot Sleep apnea Toe pain, right Type 2 diabetes mellitus with diabetic neuropathy ([facility] [place] Past Surgical History: Procedure Laterality Date CARDIAC CATHETERIZATION 08/30/2019 CATARACT EXTRACTION Bilateral CERVICAL FUSION 2016 C3-C4-C5 HERNIA REPAIR 2002 INSERT / REPLACE / REMOVE PACEMAKER 2015 pacemaker insertion OTHER SURGICAL HISTORY 2005 ablation OTHER SURGICAL HISTORY 2007 sphincterotomy ND CHOLECYSTECTOMY 02/2020 Laparoscopic Cholecystectomy - [place] ND IMPLANT ARTIFICIAL SPHINCTER 2017 PROSTATE 2000 TONSILLECTOMY 1970 Allergies Allergen Reactions Niacin Itching and Unknown Wound Dressing Adhesive Unknown Current Outpatient Medications on File Prior to Visit Medication Sig Dispense Refill amLODIPine (Norvasc) 5 MG tablet Take 5 mg by mouth in the morning. aspirin 81 MG EC tablet Take 81 mg by mouth in the morning. geivrrbvdl-tpigexvuiuful-bfehjqrb 50-325-40 MG tablet Take 1 tablet by [...] actual location and nature documented in this encounterLafayette Regional Health [id number] Hospital Discharge instructions Patient Education 09/17/2023 09:05:07 [...] grapefruit, pineapple, and nury. Vegetables Deep-fried vegetables. [place] fries. Any vegetables prepared with added fat. [...] provider. Document Revised: 11/11/2020 Document Reviewed: 11/11/2020 [employer] Patient Education 2022 [employer]. Follow Up Care 06/25/2023 12:06:59 With:Sammi CASON, NICOL Mccrary, [facility] Address: [address] [place] [address], [address] [place] [address]- [phone] When:3 months [facility] 01-15-2024 Evaluation note* Encounter Date [...] months. A prescription was sent to the [facility] for new supplies throughout the year. He [...] sleepiness, or poor response to treatment. . [facility] Other 01-09-2024 Hospital Discharge instructions Patient Education [...] grapefruit, pineapple, and nury. Vegetables Deep-fried vegetables. [place] fries. Any vegetables prepared with added fat. [...] provider. Document Revised: 11/11/2020 Document Reviewed: 11/11/2020 [employer] Patient Education 2022 [employer]. Follow Up Care 02/25/2023 14:06:51 With:Anjali Ruby CNP Address: When:1 month [facility] 11-20-2023 Miscellaneous Notes* Telephone Encounter - Lolly Dumont - 04/05/2023 9:44 AM EST Received records from [facility]. Reports for imaging listed below scanned. Images pushed through 09/27/2019 US Right Upper Quad 03/31/2020 CT ABD/PEL US Right Upper Quad [facility] MRI Abdomen 02/22/2023 Soft Tissue Head & Neck Received many misc. labs & ER reports Operative Note & pathology from Laparoscopic Cholecystectomy Patient seen 04/01, please review, thank you! [facility] Nurse Note* Debby Holland MA - 04/01/2023 1:13 PM EST What is the reason for your visit today? Consult for [facility] Who is your referring physician? Anjali Ruby CNP Are you having poor oral intake? NO Have you had unintentional weight loss of 15 lbs/7 Kg in the last 3-6 months? NO Bowels: off and on Wound: Temperature: No Drains: No documented in [facility] encounterM[facility]11-[facility]23 History of Present illness Narrative* Vaishali [...] way of the shared medical record or [employer]. Jeremie Bennett is a 82 [...] Level: 4 - Moderate documented in this encounterM[facility]11-16-2023 NoteHNO ID: [id number] Author: Vaishali Pringle MD Service: ? Author [...] Pringle MD Medical De (more content not included)...[facility]10-25-2023 Hospital Discharge instructions Patient Education 03/10/2023 09:19:04 [...] Follow these instructions at home: Medicines Take ghrv-wiu-dnssqhl and prescription medicines only as told by [...] Watch your condition for any changes. Take negv-fro-juttdln and prescription medicines only as told by [...] provider. Document Revised: 06/21/2020 Document Reviewed: 09/11/2019 [employer] Patient Education 2022 [employer]. Follow Up Care 03/09/2023 09:58:32 With:Anjali Ruby CNP Address: When:1 to 2 weeks Comments:Following EGD. [facility] 10-12-2023 Hospital Discharge instructions Patient [...] Follow these instructions at home: Medicines Take uabc-mus-jkumrld and prescription medicines only as told by your health care provider. If you were prescribed an antibiotic medicine, take it as told by your health care provider. Do notstop taking the antibiotic even if you start to feel better. Eating and drinking Make any diet changes as told by your health care provider. Work with a diet and nutrition internship (dietitian) to create an eating plan that [...] provider. Document Revised: 12/21/2020 Document Reviewed: 12/21/2020 [employer] Patient Education 2022 [employer]. Follow Up Care 02/22/2023 16:17:47 With:Anjali Ruby CNP Address: When:3 months [facility] 09-15-2023 Evaluation note* Encounter Date [...] months. A prescription was sent to the [facility] for new supplies throughout the year. He [...] sleepiness, or poor response to treatment. . [facility] Other 08-29-2023 Hospital Discharge instructions Patient Education [...] including vitamins, herbs, eye drops, creams, and zmhw-yij-cedcksp medicines. Any problems you or family members [...] provider tells you to take them. Taking hfhe-kag-dzwunyr medicines, vitamins, herbs, and supplements. General instructions [...] provider. Document Revised: 04/27/2022 Document Reviewed: 12/24/2021 [employer] Patient Education 2022 [employer]. Follow Up Care 12/28/2022 08:53:11 With:Anjali Ruby CNP Address: When:1 to 2 weeks Comments:Following EGD/Colonoscopy. [facility] 05-30-2023 Evaluation note* Encounter Date [...] sleepiness, or poor response to treatment. . [facility] Other 05-09-2023 Hospital Discharge instructions Patient Education [...] managed at home with rest, fluids, and rzua-rjv-neagwvw medicines. Serious symptoms may be treated in [...] water are not available, use alcohol-based hand field radio operator. Make sure that all people in your [...] managed at home with rest, fluids, and fhni-cnb-xyzbasb medicines. This information is not intended to replace advice given to you by your health care provider. Make sure you discuss any questions you have with your health care provider. Document Revised: 04/23/2022 Document Reviewed: 04/23/2022 [employer] Patient Education 2022 [employer]. Follow Up Care 09/22/2022 16:24:11 With:Demetrius Cooper Address: [address] [place] [address] Business (2) When:09/25/2022 18:12:[address] [facility]05-09-2023 Evaluation note* Encounter Date Diagnosis Assessment [...] no improvement in 2 to 3 days. [facility] Other 04-11-2023 NoteCONSULTATION CONSULTATION DATE: 08/25/2022 TO: [...] our patients to inform us about any xcoo-ulh-xvedybh medications or herbal remedies/nutritional supplements/alternative remedies. 2. [...] treatment options with their primary care provider.[id number] Evaluation note * Encounter Date Diagnosis Assessment [...] symptoms if he does not take his nfze-tgb-htdzhwq hypnotic, sleep hygiene issues may also be [...] neuropathy pain Jul, Coronary artery disease involving crow heart without angina pectoris, unspecified vessel or [...] he does have a defibrillator in place [facility] Other 03-09-2023 NoteCONSULTATION CONSULTATION DATE: 07/23/2022 HISTORY [...] gain authorization to hold the Plavix pre-procedure.[id number] NotePROCEDURE: XR ANKLE RT MIN 3 VIEWS COMPARISON: 08/22/2020 HISTORY: Pain of right ankle joint FINDINGS: BONES:No acute fracture or dislocation. Moderate enthesopathic spurring of the calcaneus. Degenerative changes with bone fragments along the inferior medial malleolus, stable. SOFT TISSUES:Negative. No visible soft tissue swelling. EFFUSION:None visible. OTHER: Negative. IMPRESSION: Stable degenerative changes Electronically authenticated by: ERWIN FALCON Date: 2022-07-22 10:37[id number] NotePROCEDURE: XR FOOT RT MIN 3 VIEWS [...] authenticated by: CLARISSA GARCIA Date: 2022-06-16 15:25[id number] Hospital Discharge instructions Patient Education 05/26/2022 13:46:25 [...] With:Dequan GALICIA Address: [facility] [address] , [place] [address]- Business (1) When: Unknown Comments:Office will call to schedule follow up [facility]08-11-2022 NoteCONSULTATION PROCEDURE DATE: 12/25/2021 PRE AND [...] will be followed up in the clinic.[facility] 12-25-2021 NoteCONSULTATION CONSULTATION DATE: 12/25/2021 This is [...] recently seen at an urgent care in [place] for left thumb pain and joint swelling. [...] in three months' time unless otherwise indicated.[facility]Ivfmdwqb99-70-8599 Evaluation note* Encounter Date Diagnosis Assessment Notes [...] will help you get into a specialist. [facility] Other chief complaint+Reason for visit Narrative* Chief Complaint N54.2 Self Referral [facility] Work Phone: Chief complaint+Reason for visit Narrative* Chief Complaint N54.2 Self Referral [id number] [id number] m54.2 [facility] Work Phone: Chimd complaint+Reason for visit Narrative* Chief Complaint N54.2 Self Referral [id number] m54.12 m54.2 isidro, [id number] [facility] Work Phone: Discharge summary Author Zeke Brennan [facility] Note Date/Time August 21, 2024 2:14 pm [facility] [address] [place] [address] Discharge Summary Signed Patient: Jeremie Bennett MR#: [id number] : 1940 Acct:[id number] Age/Sex: 83 / M Adm Date: 5 Loc: Room: [address] [place] [address]: Zeke Brennan MD Copies to: [...] Continuity of Care Document Health Concerns: A [facility] screening has identified you as FRAIL or [...] Four Ways to Beat the Frailty Risk [email or web address]-ql-xmob-gzg-yvtrfpj-mqpy Exam Physical Exam Vital Signs: Temp Pulse [...] % (Auto) 75.8, Lymph % (Auto) 9.0, [place] % (Auto) 13.6, Eos % (Auto) 1.0, Baso % (Auto) 0.6, Nucleat RBC Rel Count 0.1, Neut # (Auto) 4.7, Lymph # (Auto) 0.6 L, [place] # (Auto) 0.8, Eos # (Auto) 0.1, [...] Appearance Clear, Urine pH 5.5, Ur Specific [place] 1.017, Urine Protein Negative, Urine Glucose (UA) [...] % (Auto) 77.0, Lymph % (Auto) 10.5, [place] % (Auto) 11.3, Eos % (Auto) 0.7, Baso % (Auto) 0.5, Nucleat RBC Rel Count 0.2, Neut # (Auto) 5.7, Lymph # (Auto) 0.8 L, [place] # (Auto) 0.8, Eos # (Auto) 0.1, [...] signed by Zeke Brennan MD> 08/21/24 1414 [facility] Work Phone: Evaluation + Plan note No data available for this section [facility] Future App[facility]ments Appointment Date:11/23/2022 09:00:00 AM Scheduled Provider:Demetrius Cooper MD [facility] App[facility]ments Appointment Date:12/15/2022 12:00:00 PM Scheduled Provider:Anjali Ruby CNP Location:[facility] Appointment Type:[facility] New Patient Appointment Date:05/31/2023 09:00:00 AM Scheduled Provider:Demetrius Cooper MD Location:[facility] Appointment Type: Open Appointment Date:11/08/2023 01:00:00 PM Scheduled Provider: Location:[facility] Appointment Type: Medicare Wellness Subsequent Future Scheduled Tests Laboratory* HgbA1c 11/23/22 * CBC w/ Auto Diff 11/23/22 * Comprehensive Metabolic Panel 11/23/22 * Lipid Panel 11/23/[address] Future Appointments Appointment Date:05/31/2023 09:00:00 AM Scheduled Provider:Demetrius Cooper MD Location:[facility] Appointment Type: Open Appointment Date:11/08/2023 01:00:00 PM Scheduled Provider: Location:[facility] Appointment Type: Medicare Wellness Subsequent Future Scheduled Tests Laboratory* HgbA1c 11/23/22 * CBC w/ Auto Diff 11/23/22 * Comprehensive Metabolic Panel 11/23/22 * Lipid Panel 11/23/[address] Appointments Appointment Date:05/31/2023 09:00:00 AM Scheduled Provider:Demetrius Cooper MD Location:[facility] Appointment Type: Open Appointment Date:11/08/2023 01:00:00 PM Scheduled Provider: Location:[facility] Appointment Type: Medicare Wellness Subsequent Future Scheduled Tests Laboratory* HgbA1c 11/23/22 * CBC w/ Auto Diff 11/23/22 * Comprehensive Metabolic Panel 11/23/22 * Lipid Panel 11/23/22 Radiology* CT Abdomen w/ Contrast 01/12/23 [facility] Evaluation + Plan note Future Appointments Appointment Date:05/03/2023 01:40:00 PM Scheduled Provider:Anjali Ruby CNP Location:[facility] Appointment Type:[facility] Follow Up Appointment Date:05/31/2023 09:00:00 AM Scheduled Provider:Demetrius Cooper MD Location:[facility] Appointment Type: Open Appointment Date:11/08/2023 01:00:00 PM Scheduled Provider: Location:[facility] Appointment Type:FM Medicare Wellness Subsequent Future Scheduled Tests Laboratory* HgbA1c 11/23/22 * CBC w/ Auto Diff 11/23/22 * Comprehensive Metabolic Panel 11/23/22 * Lipid Panel 11/23/22 [facility] Evaluation + Plan note Future Appointments Appointment Date:05/03/2023 01:40:00 PM Scheduled Provider:Anjali Ruby CNP Location:[facility] Appointment Type:[facility] Follow Up Appointment Date:05/31/2023 10:00:00 AM Scheduled Provider:Demetrius Cooper MD Location:[facility] Appointment Type: Open Appointment Date:11/08/2023 01:00:00 PM Scheduled Provider: Location:[facility] Appointment Type:FM Medicare Wellness Subsequent Future Scheduled Tests Laboratory* HgbA1c 11/23/22 * CBC w/ Auto Diff 11/23/22 * Comprehensive Metabolic Panel 11/23/22 * Lipid Panel 11/23/22 [facility] Evaluation + Plan note Future Appointments Appointment Date:05/03/2023 01:40:00 PM Scheduled Provider:Anjali Ruby CNP Location:[facility] Appointment Type:[facility] Follow Up Appointment Date:05/31/2023 10:00:00 AM Scheduled Provider:Demetrius Cooper MD Location:[facility] Appointment Type: Open Appointment Date:11/08/2023 01:00:00 PM Scheduled Provider: Location:[facility] Appointment Type:FM Medicare Wellness Subsequent Diagnostic Tests Pending * O & P Exam, Routine 03/10/23 * Giardia lamblia, Direct Detection EIA 03/10/23 Future Scheduled Tests Laboratory* HgbA1c 11/23/22 * CBC w/ Auto Diff 11/23/22 * Comprehensive Metabolic Panel 11/23/22 * Lipid Panel 11/23/[address] [facility] App[facility]ments Appointment Date:05/31/2023 10:00:00 AM Scheduled Provider:Demetrius Cooper MD Location:[facility] Appointment Type: Open Appointment Date:06/25/2023 01:20:00 PM Scheduled Provider:Anjali Ruby CNP Location:[facility] Appointment Type:[facility] Follow Up Appointment Date:11/08/2023 01:00:00 PM Scheduled Provider: Location:[facility] Appointment Type: Medicare Wellness Subsequent Future Scheduled Tests Laboratory* HgbA1c 11/23/22 * CBC w/ Auto Diff 11/23/22 * Comprehensive Metabolic Panel 11/23/22 * Lipid Panel 11/23/22 [facility] evaluation + Plan note Future Appointments Appointment Date:10/21/2023 03:00:00 PM Scheduled Provider:Inez Henderson MD Location:[facility] Appointment Type:[facility] Follow Up Appointment Date:11/08/2023 01:00:00 PM Scheduled Provider: Location:[facility] Appointment Type:FM Medicare Wellness Subsequent Appointment Date:11/29/2023 10:15:00 AM Scheduled Provider:Demetrius Cooper MD Location:[facility] Appointment Type: Open Future Scheduled Tests Laboratory* U Protein/Creat Ratio 05/31/23 * HgbA1c 11/23/22 * HgbA1c 05/31/23 * Microalbumin Level Urine 05/31/23 * CBC w/ Auto Diff 11/23/22 * Comprehensive Metabolic Panel 11/23/22 * Lipid Panel 11/23/22 [facility] Evaluation + Plan note Future Appointments Appointment Date:10/21/2023 03:00:00 PM Scheduled Provider:Inez Henderson MD Location:[facility] Appointment Type:[facility] Follow Up Appointment Date:11/08/2023 01:00:00 PM Scheduled Provider: Location:[facility] Appointment Type: Medicare Wellness Subsequent Appointment Date:11/29/2023 10:15:00 AM Scheduled Provider:Demetrius Cooper MD Location:[facility] Appointment Type: Open Diagnostic Tests Pending * Celiac Disease Comprehensive 5/3/24 Future Scheduled Tests Laboratory* U Protein/Creat Ratio 05/31/23 * HgbA1c 11/23/22 * HgbA1c 05/31/23 * Microalbumin Level Urine 05/31/23 * CBC w/ Auto Diff 11/23/22 * Comprehensive Metabolic Panel 11/23/22 * Lipid Panel 11/[facility]/[address] [facility]ments Appointment Date:11/08/2023 01:00:00 PM Scheduled Provider: Location:[facility] Appointment Type: Medicare Wellness Subsequent Appointment Date:11/29/2023 10:15:00 AM Scheduled Provider:Demetrius Cooper MD Location:[facility] Appointment Type: Open Appointment Date:03/23/2024 02:45:00 PM Scheduled Provider:Inez Henderson MD Location:[facility] Appointment Type:[facility] Follow Up Future Scheduled Tests Laboratory* U Protein/Creat Ratio 05/31/23 * HgbA1c 11/23/22 * HgbA1c 05/31/23 * Microalbumin Level Urine 05/31/23 * CBC w/ Auto Diff 11/23/22 * Comprehensive Metabolic Panel 11/23/22 * Lipid Panel 11/23/22 Radiology* MRI Cholangiogram Pancreatography (mrcp) 10/21/23 [facility] Evaluation + Plan note Future Appointments Appointment Date:11/29/2023 10:15:00 AM Scheduled Provider:Demetrius Cooper MD Location:[facility] Appointment Type: Open Appointment Date:03/23/2024 02:45:00 PM Scheduled Provider:Inez Henderson MD Location:[facility] Appointment Type:[facility] Follow Up Appointment Date:11/06/2024 02:30:00 PM Scheduled Provider: Location:[facility] Appointment Type:FM Medicare Wellness Subsequent Future Scheduled Tests Laboratory* U Protein/Creat Ratio 11/24/23 * U Protein/Creat Ratio 05/31/23 * HgbA1c 11/30/23 * HgbA1c 11/23/22 * HgbA1c 05/31/23 * Microalbumin Level Urine 11/24/23 * Microalbumin Level Urine 05/31/23 * CBC w/ Auto Diff 11/23/22 * Comprehensive Metabolic Panel 11/23/22 * Lipid Panel 11/08/23 * Lipid Panel 11/23/[address] [facility] App[facility]ments Appointment Date:04/17/2024 10:00:00 AM Scheduled Provider:Demetrius Cooper MD Location:[facility] Appointment Type: Open Appointment Date:11/06/2024 02:30:00 PM Scheduled Provider: Location:[facility] Appointment Type: Medicare Wellness Subsequent Future Scheduled Tests Laboratory* U Protein/Creat Ratio 11/24/23 * U Protein/Creat Ratio 05/31/23 * HgbA1c 11/30/23 * HgbA1c 05/31/23 * Microalbumin Level Urine 11/24/23 * Microalbumin Level Urine 05/31/23 * Lipid Panel 11/08/23 Radiology* MRI Cholangiogram Pancreatography (mrcp) 03/23/24 [facility] Evaluation + Plan note Future Appointments Appointment Date:11/06/2024 02:30:00 PM Scheduled Provider: Location:[facility] Appointment Type: Medicare Wellness Subsequent Appointment Date:11/06/2024 03:30:00 PM Scheduled Provider:Demetrius Cooper MD Location:[facility] Appointment Type: Open Future Scheduled Tests Laboratory* U Protein/Creat Ratio 11/24/23 * U Protein/Creat Ratio 05/31/23 * HgbA1c 11/30/23 * HgbA1c 05/31/23 * Microalbumin Level Urine 11/24/23 * Microalbumin Level Urine 05/31/23 * Lipid Panel 11/08/[address] [facility] Evaluation + Plan note Future Appointments Appointment Date:11/21/2024 02:30:00 PM Scheduled Provider: Location:[facility] Appointment Type: Medicare Wellness Subsequent Appointment Date:11/21/2024 03:20:00 PM Scheduled Provider:Demetrius Cooper MD Location:[facility] Appointment Type: Open Diagnostic Tests Pending * Urine Culture 08/30/24 Future Scheduled Tests Laboratory* U Protein/Creat Ratio 11/24/23 * HgbA1c 11/30/23 * Microalbumin Level Urine 11/24/23 * Lipid Panel 11/08/[address] [facility] Evaluation noteNo Assessments Information Available [facility] assessment information available [facility] Work Phone: Evaluation note* Diagnosis 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 [facility] Diagnosis 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 [facility]* Diagnosis Onset Date Resolution Status Viral URI with cough noneact rosa Impacted cerumen, bilateral noneactive Central sleep apnea acute DM (diabetes mellitus) acute Essential hypertension acute Obstructive sleep apnea acut e [facility] Work Phone: Evaluation note* Diagnosis 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 [facility]* Diagnosis Migraine without aura and without status migrainosus, not intractable (CMS/HCC)- Primary Vertigo Dizziness and giddiness Lumbar radiculopathy Thoracic or lumbosacral neuritis or radiculitis, unspecified Neck pain Cervicalgia Degenerative disc disease, cervical Polyneuropathy Unspecified hereditary and idiopathic peripheral neuropathy documented in this encounter [facility]* Diagnosis LAD (lymphadenopathy) of right cervical region- Primary documented in this encounter [facility]* Diagnosis 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 [facility]* Diagnosis Oral ulcer- Primary Other and unspecified diseases of the oral soft tissues 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) documented in this encounter [facility]* Diagnosis 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 Ulcer of gingiva documented in this encounter [facility]* Diagnosis Malignant neoplasm [...] mouth, part unspecified documented in this encounter [facility] Work Phone: Evaluation note* Diagnosis Parotid mass- Primary Swelling, mass, or lump in head and neck documented [facility] encounter [facility]* Diagnosis Malignant neoplasm of floor [...] stated as uncontrolled documented in this encounter [facility] Work Phone: Evaluation note* 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 head, face, and neck documented in this encounter [facility] Work Phone: Evaluation note* Diagnosis Enlarged submental lymph node documented in this encounter [facility] Work Phone: Evaluation note* Diagnosis Poor intravenous access- Primary 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, unspecified site [facility]* Diagnosis Sensorineural hearing loss, bilateral- Primary Tinnitus, bilateral Unspecified tinnitus documented [facility]* Diagnosis Personal history of malignant neoplasm of head and neck- Primary Personal history of malignant neoplasm of other site Dysphagia, unspecified type documented in this encounter [facility] Work Phone: Evaluation note* Diagnosis Esophageal dysphagia- Primary Dysphagia, pharyngoesophageal phase documented [facility] encounter [facility]* Diagnosis Vertigo- Primary Dizziness and giddiness Lumbar radiculopathy Thoracic or lumbosacral neuritis or radiculitis, unspecified Chronic bilateral low back pain, unspecified whether sciatica present Degenerative disc disease, cervical Migraine without aura and without status migrainosus, not intractable (CMS/HCC) Polyneuropathy Unspecified hereditary and idiopathic peripheral neuropathy documented in this encounter [facility]Evaluation note* Diagnosis Esophageal dysphagia- Primary Dysphagia, pharyngoesophageal phase 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, unspecified site documented in this encounter [facility] note* Diagnosis Personal history of malignant neoplasm of head and neck- Primary Personal history of malignant neoplasm of other site G tube feedings (Multi) At risk for malnutrition documented in this encounter [facility] Work Phone: Evaluation note* Diagnosis Esophageal dysphagia- Primary Dysphagia, pharyngoesophageal phase Carcinoma of oropharynx (HCC) Malignant neoplasm of oropharynx, unspecified site documented in this encounter [facility]* Diagnosis Esophageal dysphagia- Primary Dysphagia, pharyngoesophageal phase documented in this encounter [facility] HealthcareHistory general Narrative - Reported* Type Description Date Medical History DM (diabetes mellitus) Medical History HTN (hypertension) Medical History Hypercholesteremia Medical History Vitamin D deficiency, unspecifie d Medical History CAD (coronary artery disease) Surgical History Neck Surgery Surgical History cholecystectomy Surgical History cardiac stent Surgical History prostatectomy Surgical History hernia Hospitalization History see above [facility] Other History general Narrative - Reported* Type [...] Surgical History hernia Hospitalization History see above [facility] Other History of Present illness Narrative* Veena Adkins, - 10/11/2024 2:15 PM EDT Images from the original note were not included. Jeremie Bennett is a 83 y.o. male presents for 1st pow gastrostomy tube placement HPI: HPI Jeremie is in for his first post-op from PEG tube placement. He is doing well and tolerating the tube feeds OBJECTIVE: Physical Exam PEG insertion site is clean and healing well ASSESSMENT AND PLAN: Assessment/Plan Diagnoses and all orders for this visit: Esophageal dysphagia Carcinoma of oropharynx (CMS/HCC) Jeremie is doing well, I'll see him PRN documented [facility] Healthcare[facility] Present illness Narrative * Veena Adkins DO - 01/08/2025 3:15 PM EDT Images from the original note were not included. Jeremie Bennett 1940 Jeremie Bennett is a 84 y.o. male presents with chief complaint of Gastrostomy tube removal HPI: HPI Jeremie presents to have the GT removed. He is done using it and wants it removed. 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 Migraine headache Mixed incontinence 01/27/2024 Other specified disorders of synovium, right ankle and foot Pain management Pain of upper abdomen 04/03/2022 Paronychia of great toe bilateral Peptic ulcer 04/03/2022 Personal history of other medical treatment 04/2018 body map scanned in for biopsies and trtm Prostate cancer (HCC) Right flank pain 04/03/2022 Sinus tarsi syndrome of right foot Sleep apnea Toe pain, right 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) Ventricular tachycardia (HCC) Social History Tobacco Use Smoking status: Former Current packs/day: 1.00 Types: Cigarettes Passive exposure: Past Tobacco comments: Years smoked: 25 Substance Use Topics Alcohol use: Yes Comment: 1 or 2 drinks/day, monthly or less; Caffeine: 1 drink/day Drug use: Never Past Surgical History: Procedure Laterality Date CARDIAC CATHETERIZATION 08/30/2019 CATARACT EXTRACTION Bilateral CERVICAL FUSION 2015 C3-C4-C5 CHOLECYSTECTOMY GASTROSTOMY TUBE PLACEMENT HERNIA REPAIR 2002 INSERT / REPLACE / REMOVE PACEMAKER 2015 pacemaker insertion OTHER SURGICAL HISTORY 2005 ablation OTHER SURGICAL HISTORY 2007 sphincterotomy ND CHOLECYSTECTOMY 02/2020 Laparoscopic Cholecystectomy - [place] ND IMPLANT ARTIFICIAL SPHINCTER 2017 PROSTATE 2000 TONSILLECTOMY 1970 US GUIDED BIOPSY LYMPH NODE SUPERFICIAL 06/05/2024 US GUIDED BIOPSY LYMPH NODE SUPERFICIAL 06/05/2024 FAMILY HISTORY Family History Problem Relation Name Age of Onset Hypertension Mother Estee Bennett Heart disease Mother Estee Bennett Stroke Mother Estee Bennett Asthma Mother Estee Bennett Kidney disease Mother Estee Bennett Migraines Mother Estee Bennett Other (prostate problem) Father Stacey Bennett Cancer Father Stacey Bennett Heart disease Maternal Grandmother Claire Edwards Hypertension Maternal Grandmother Claire Edwards Hyperlipidemia Maternal Grandmother Claire Edwards Cancer Paternal Grandfather Fidel Bennett Other (stomach problem) Paternal Grandfather Fidel Bennett REVIEW OF SYMPTOMS: Review of Systems Constitutional: Negative for activity change. HENT: Positive for tinnitus. Negative for voice change. Respiratory: Negative for shortness of breath. Cardiovascular: Negative for chest pain. Gastrointestinal: Negative for abdominal distention, diarrhea, nausea and vomiting. Musculoskeletal: Positive for arthralgias. Neurological: Negative for dizziness, seizures and headaches. Psychiatric/Behavioral: Negative. All other systems reviewed and are negative. OBJECTIVE: Visit Vitals Smoking Status Former Physical Exam Vitals reviewed. HENT: Head: Normocephalic. [...] all orders for this visit: Esophageal dysphagia Carcinoma of oropharynx (HCC) Jeremie presents to have the PEG tube removed, he is no longer using it. He is on Plavix and will have to hold it prior to the tube being pulled as it is a non compressible area. We will schedule himto return to the office and I asked him to hold the Plavix for 5 days prior to the visit. [facility] Discharge instructions No data available for this section [facility] instructionsAmbulatory Orders* Referral to Palliative Medicine Time Frame: 06/14/24, Location: None Selected * RISE Order Location: None Selected [facility] Work Phone: Progress note No data available for this section [facility] Author Talib Faustin [facility] Note Date/Time June 14, 2024 1 1:06am [facility] [place] [address] Cancer Center Note Signed Patient: Jeremie Bennett MR#: [id number] : 1940 Acct:[id number] Age/Sex: 83 / M Type: REG AMB [...] by IHC was equivocal. 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 He is [...] positive squamous cell carcinoma. Tumor board at [facility] in [facility] and the recommended concurrent chemoradiation. Past medical [...] with concurrent chemoradiation. Since he lives in [place] he was referred by Dr. Mary Schneider from ENT at [facility] to our medical oncology and radiation oncology at [facility]. He is referred to medical oncology for [...] PO DAILY aspirin 81 mg PO DAILY umakkzy-jtuovmdfannoy-unwapsat 250-250-65 mg (Excedrin Migraine) 1 tab PO [...] yellow fever card, magnet, caregiver resource list, [facility] nutrition guide, and cancer rehabilitation pamphlet provided anddiscussed with patient. Patient also provided with copy of consent, doctors business card, and clinic contact information. Printed drug information also provided and discussed with patient. All questions were answered to patient?s satisfaction and patient verbalizes understanding. ed by Dr Mary Schneider. Patient report some trouble swallowing as well. Had procedure 05/11 at . Patient is going to have pace maker replaced 07/10/2024 at [facility]. [facility] Medical History Medical History (Updated 06/14/24 [...] Social History (Updated 06/13/24 @ 14:48 by EDSI Minaya) Smoking status: Former smoker What tobacco [...] RESULTS No Data to Display Dictated By: Talbi Faustin MD DD/ [id number] Signed By: <Electronically signed by Talib Faustin MD> 06/14/24 1106 [facility] Work Phone: Progress note Author Talib Faustin [facility] Note Date/Time July 12, 2024 9:20am [facility] [place] [address] Cancer Center Note Signed Patient: Jeremie Bennett MR#: [id number] : 1940 Acct:[id number] Age/Sex: 83 / M Type: REG AMB [...] by IHC was equivocal. As per the [facility] tumor board recommendation is either doing extensive [...] his week 1 of cisplatin. Labs at [facility] on 07/03/24 revealed hgb 13.3, cr is 1.0. He is having his labs here today.He had his pacemaker placed on 07/10/24 in [place]. 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 He is [...] positive squamous cell carcinoma. Tumor board at [facility] in [facility] and the recommended concurrent chemoradiation. Past medical [...] with concurrent chemoradiation. Since he lives in [place] he was referred by Dr. Mary Schneider from ENT at [facility] to our medical oncology and radiation oncology at [facility]. He is referred to medical oncology for [...] his week 1 of cisplatin. Labs at [facility] on 07/03/24 revealed hgb 13.3, cr is 1.0. He is having his labs here today.He had his pacemaker placed on 07/10/24 in [place]. Rest of 14 point systems were reviewed [...] PO QAM aspirin 81 mg PO DAILY qzmnvmv-oumafgzqaddmb-qsmabhlt 250-250-65 mg (Excedrin Migraine) 1 tab PO [...] other concerns voiced at time of intake. [facility] Medical History Medical History (Updated 07/06/24 [...] Mother Heart disease [facility] of stroke [facility]: Diagnosed with Stroke Hypertension Emphysema lung ESRD (end stage renal disease) [facility]: Diagnosed with Cancer Lymphoma Social History Social History (Updated 06/13/24 @ 14:48 by Vanessa Singer Lyssa) Smoking status: Former smoker What tobacco products [...] signed by Talib Faustin MD> 07/12/24 0920 [facility] Work Phone: Progress note Author Zeke Brennan [facility] Note Date/Time August 21, 2024 2:14 pm [facility] [address] [place] [address] Hospitalist Progress Note Signed Patient: Jeremie Bennett MR#: [id number] : 1940 Acct:[id number] Age/Sex: 83 / M Adm Date: 5 Loc: Room: 8U2690-0 Type: ADM IN Attending Dr: Zeke Brennan [...] of care and confirmed it with the resident/student/PIERCER. This patient presented to the emergency department [...] Mg Tablet PO 08/21/25 20:59 QPM CINTHIA Fentanyl 12 mcg 08/21/24 11:30 08/21/24 11:29 Fentanyl Patch 12 Mcg/Hour Patch.Td72 TRANSDERML 12 mcg Q72HR CINTHIA Administration Protocol Fluticasone Propionate 2 spray 08/21/24 09:00 08/21/24 09:02 Fluticasone Propionate Keaton 120 Keaton/16 Gm Bottle INTRANASAL 08/21/25 08:59 2 spray QAM CINTHIA Administration Ceftriaxone Sodium 1 gm in 50 mls @ 100 mls/hr 08/21/24 22:00 Rocephin IV QHS CINTHIA Isosorbide Mononitrate 30 mg 08/21/24 09:00 08/21/24 09:00 Isosorbide Mononitrate 24hr Er 30 Mg Tab.Er.24h PO 08/21/25 08:59 30 mg QAM CINTHIA Administration Latanoprost 1 drops 08/21/24 21:00 Latanoprost [...] 08/21/24 09:00 08/21/24 09:00 Pantoprazole 40 Mg Tablet.Dr PO 08/21/25 08:59 40 mg BID CINTHIA [...] signed by DO KASSY Lambert> 08/21/24 1152 [facility] Work Phone: Progress note Author Talib Faustin [facility] Note Date/Time November 23, 2024 10:2 6am [facility] [place] [address] Cancer Center Note Signed Patient: Jeremie Bennett MR#: [id number] : 1940 Acct:[id number] Age/Sex: 84 / M Type: REG AMB Date of Service: 11/23/24 Copies to: Demetrius Cooper MD~ Assessment & Plan A/P (1) 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 Left mandible biopsywas benign tissue with inflammation only. 06/05/[address] biopsy was positive for metastatic non keratinizing SCC, High risk HPV FISH was positive in tumor cells, P16 by IHC was equivocal. As per the [facility] tumor board recommendation is either doing extensive [...] his week 1 of cisplatin. Labs at [facility] on 07/03/24 revealed hgb 13.3, cr is 1.0. He is having his labs here today.He had his pacemaker placed on 07/10/24 in [place]. 07/20/2024 he came in complaining of increase bilateral ears ringing which she hasas a baseline but it increased compared with before after cycle or week 2 of theweekly cisplatin. He denies any hearing deficiency however. He has some sore throat from the radiation. He was given oxycodone and Magic swizzle by the radiation oncology. 07/26/24: He is here for week 2 of Decetaxel after receiving 2 weeks of cisplatin changed to Docetaxel due to increased tinnitus on Cisplatin. He continues to have the same tinnitus of the ears without worsening or improvement. His hearing has been the same most of the time except 1 event he felt like his was speaking in the lower voice. They denied any fevers. Hehas some swelling of the tongue or sore throat for which he was using Magic swizzle. Denied any chest pain or shortness of breath or cough or diarrhea or nausea vomiting or abdominal pain. 08/09/24: Patient is here for 2 weeks follow-up, one day prior to treatment #4 of the weekly docetaxel that is scheduled on 08/10/2024 after receiving 2 treatments of cisplatin initially and concurrent with radiation. His hearing has been the same as baseline. His tinnitus is improving but not back to baseline yet. Tongue swelling is better and no mouth sores. Labs are pending from today. 08/23/24: He is here for 2 weeks follow up for toxicity check after he completed his concurrent chemo and radiation last week. He completed his radiation on 08/21/24. he complains of painful raw skin in the neck. He uses silvadine and Dombero for the neck skin given by Rad onc. He also uses magic swizzle for the raw throat. Labs are unremarkable except mild worsening anemia hemoglobin down to 10.4 on 08/21/2024. W BC and platelets are normal. Absolute neutrophil count is normal. The potassium is 3.3 otherwise unremarkable CMP except for magnesium of 1.8 and calcium of 8.2 mildly low. Albumin is lowered to 2.9 now. LFTs are unremarkable. 11/23/24: Patient is here for Active surveillance FU for his treated oropharyngeal cancer. - Labs on 11/13/2024 revealed normal WBC and platelet count around improved hemoglobin up to 12.8 now. Renal function is normal potassium is normal and magnesium is back to normal as well 2.1. LFTs unremarkable. - PET CT scan on 11/13/2024 revealed negative PET for recurrent or metastatic disease. - He denied any new complaints. He is seeing ENT 12/11/24 for Flex Laryngoscopy. - He is no longer on Klor Con. he is on Lasix 20 mg daily by PCP. - He is still using PEG tube feeding but gradually decreasing it as he is eatnigmore orally now. PLAN: Continue observation only for now. Stop Klor con and Mag Oxide. he is seeing Dr Grimm end of this month. If no recurent disease then follow only with Rad Onc and ENT. I recommended to advance oral diet so he can potentially have his PEG tube removed. Continue following with Rad onc as per their recommendations and their plan. Anyimaging surveillance will be up to Rad Onc. Return to med oncology as needed. 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 He is [...] positive squamous cell carcinoma. Tumor board at [facility] in [facility] and the recommended concurrent chemoradiation. Past medical [...] with concurrent chemoradiation. Since he lives in [place] he was referred by Dr. Mary Schneider from ENT at [facility] to our medical oncology and radiation oncology at [facility]. He is referred to medical oncology for [...] his week 1 of cisplatin. Labs at [facility] on 07/03/24 revealed hgb 13.3, cr is 1.0. He is having his labs here today.He had his pacemaker placed on 07/10/24 in [place]. 07/20/2024 he came in complaining of increase bilateral ears ringing which she hasas a baseline but it increased compared with before after cycle or week 2 of theweekly cisplatin. He denies any hearing deficiency however. He has some sore throat from the radiation. He was given oxycodone and Magic swizzle by the radiation oncology. 07/26/24: He is here for week 2 of Decetaxel after receiving 2 weeks of cisplatin changed to Docetaxel due to increased tinnitus on Cisplatin. He continues to have the same tinnitus of the ears without worsening or improvement. His hearing has been the same most of the time except 1 event he felt like his was speaking in the lower voice. They denied any fevers. Hehas some swelling of the tongue or sore throat for which he was using Magic swizzle. Denied any chest pain or shortness of breath or cough or diarrhea or nausea vomiting or abdominal pain. 08/09/24: Patient is here for 2 weeks follow-up, one day prior to treatment #4 of the weekly docetaxel that is scheduled on 08/10/2024 after receiving 2 treatments of cisplatin initially and concurrent with radiation. His hearing has been the same as baseline. His tinnitus is improving but not back to baseline yet. Tongue swelling is better and no mouth sores. Labs are pending from today. 08/23/24: He is here for 2 weeks follow up for toxicity check after he completed his concurrent chemo and radiation last week. He completed his radiation on 08/21/24. he complains of painful raw skin in the neck. He uses silvadine and Dombero for the neck skin given by Rad onc. He also uses magic swizzle for the raw throat. Labs are unremarkable except mild worsening anemia hemoglobin down to 10.4 on 08/21/2024. W BC and platelets are normal. Absolute neutrophil count is normal. The potassium is 3.3 otherwise unremarkable CMP except for magnesium of 1.8 and calcium of 8.2 mildly low. Albumin is lowered to 2.9 now. LFTs are unremarkable. 11/23/24: Patient is here for Active surveillance FU for his treated oropharyngeal cancer. - Labs on 11/13/2024 revealed normal WBC and platelet count around improved hemoglobin up to 12.8 now. Renal function is normal potassium is normal and magnesium is back to normal as well 2.1. LFTs unremarkable. - PET CT scan on 11/13/2024 revealed negative PET for recurrent or metastatic disease. - He denied any new complaints. He is seeing ENT 12/11/24 for Flex Laryngoscopy. - He is no longer on Klor Con. he is on Lasix 20 mg daily by PCP. - He is still using PEG tube feeding but gradually decreasing it as he is eatnigmore orally now. Rest of 14 point systems were reviewed and are otherwise negative. Intake Vitals/Pain Assessment 11/23/24 09:57 Weight 73.028 kg BP 103/64 Blood Pressure Location Rt brachial Position Sitting Temp 98 F Pulse 68 Pulse Source NIBP Respiration 18 Pulse Oximetry (%) 98 Oxygen Delivery Method room air Are you having pain? No Intake Visit Reasons: Follow Up 3 Months Accompanied by: & Son Allergies adhesive Allergy (Unknown, Verified 11/23/24 10:00) rash niacin (Niaspan Extended-Release) Allergy (Unknown, Verified 11/23/24 10:00) hives Home Medications - Last Reconciled 11/23/24 by EDIS Negron amlodipine 5 mg PO QAM aspirin 81 mg PO DAILY clopidogrel 75 mg PO DAILY Held on 10/03/24. Instructions: Resume on 10/04/24. dorzolamide 2% 1 drp ophthalmic (eye) BID famotidine 20 mg PO QPM fluticasone propionate 50 mcg/actuation 2 sprays intranasal QAM furosemide 20 mg PO QAM irbesartan 300 mg PO QAM isosorbide mononitrate ER 30 mg PO QAM latanoprost 0.005% 1 drp ophthalmic (eye) QPM metformin 500 mg PO QAM multivitamin (Multiple Vitamins tablet) 1 tab PO DAILY omeprazole 40 mg PO QAM ondansetron 8 mg PO Q8HR PRN polyethylene glycol 3350 (Miralax) 17 grams PO DAILY 4 days rosuvastatin 10 mg PO QPM sotalol 40 mg PO BID tizanidine 4 mg PO QPM zonisamide 25 mg PO BID Gastrointestinal Is the patient taking opioids for pain control?: No Bowel Protocol for Opioids Given: No Bowel Pattern: Regular Bowel Movement Aid(s): None Falls Fall Precaution Measures Taken: Patient in chair Nurse's Note: Patient is here for a 3 month follow up with labs and imaging for review. NO concerns voiced at time of intake. [facility] Medical History Medical History Squamous cell carcinoma of oropharynx Pacemaker Prostate cancer surgery Neuropathy Vertigo Migraine Arthritis Glaucoma Pancreatic cyst Diverticulitis V tach Tongue cancer GERD (gastroesophageal reflux disease) Arthritis Malignant neoplasm [...] with Cancer Lymphoma Social History Social History Smoking status: Never smoker Do you use any of these nicotine containing products: smokeless tobacco Smokeless tobacco user details: former Within the past year, how often did you have a drink containing alcohol: 2-4 times a month Alcohol type details: 2 glasses of wine per week. Within the past year, how many standard drinks containing alcohol did you have on a typical day: 3 or 4 Within the past year, how often did you have six or more drinks on one occasion: never AUDIT-C Alcohol total score: 3 AUDIT-C Alcohol score interpretation: A score less [...] or sensory changes. Physical Exam EXAM HEENT - Neck supple with dry skin but no desquamation noted. Post radiation changes to the R tonsillar pillar and throat. dry mucous membranes. No adenopathy noted Heart regular rate and rhythm Abdomen soft nontender not distended Lymphatic system no lymphadenopathy noted on exam Neurological exam patient is cooperative alert and oriented x3 no focal deficits. Results - [facility] ([facility]c) LAB RESULTS Corrected WBC, (4.1-10.5) 8.5 X10E3/uL 11/13/24, 12:4 0 Hgb, (13.0-17.0) 12.8 g/dL L 11/13/24, 12:40 Hct, (38.8-50.0) 38.5 % L 11/13/24, 12:40 MCV, (83.5-101) 93.7 fl 11/13/24, 12:40 RDW, (12.0-14.8) 14.7 % 11/13/24, 12:40 Plt Count, (150-450) 223 x10E3/uL 11/13/24, 12:40 Sodium, (136-145) 137 mmol/L 11/13/24, 12:40 Potassium, (3.5-5.1) 4.2 mmol/L 11/13/24, 12:40 BUN, (7-25) 29 mg/dL H 11/13/24, 12:40 Creatinine, (0.70-1.30) 0.80 mg/dL 11/13/24, 12:40 Glucose, (70-100) 108 mg/dL H 11/13/24, 12:40 Est GFR (CKD-EPI) > 60.0 mL/Min 11/13/24, 12:40 Calcium, (8.6-10.3) 9.3 mg/dL 11/13/24, 12:40 Total Bilirubin, (0.3-1.0) 0.4 mg/dl 11/13/24, 12: 40 AST, (13-39) 15 U/L 11/13/24, 12:40 ALT, (7-52) 14 U/L 11/13/24, 12:40 Alkaline Phosphatase, (34-104) 80 U/L 11/13/24, 12:40 Total Protein, (6.4-8.9) 7.3 gm/dL 11/13/24, 12:40 Albumin, (3.5-5.7) 4.2 gm/dL 11/13/24, 12:40 Social Determinants of Health Screening SDOH last assessed in clinic: 11/23/24 Will the patient participate in the screening?: Yes Do you worry about having a steady place to live?: No In the past 12 months, have you had to go without electric, gas, oil, or water in your home?: No Have you or anyone in your house had to go without enough food to eat?: No Has lack of reliable transportation kept you from medical appointments or from doing things needed for daily living?: No Has anyone in your support network made you feel unsafe for any reason?: No Does the patient want assistance with any of the above?: No Dictated By: Talib Faustin MD DD/ [id number] Signed By: <Electronically signed by Talib Faustin MD> 11/23/24 1026 [facility] Work Phone: Progress note Author Becky Crouch [facility] Note Date/Time December 26, 2024 1: 25pm [facility] [place] [address] Cancer Center Note Signed Patient: Jeremie Bennett MR#: [id number] : 1940 Acct:[id number] Age/Sex: 84 / M Type: DEP AMB Date of Service: 12/26/24 Copies to: DO Dennis Hernandes MD Samuel E Ross MD~ Assessment & Plan (1) Squamous cell carcinoma of oropharynx: Plan: Refer for G-tube removal Return to clinic in February 2025 as planned Assessment: 84-year-old male with 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 Of note patient has a remote history of prior radiation to the bilateral soles of the feet for warts. August 21, 2024 patient completed definitive concurrent chemoradiation using IMRT and daily IGRT to a dose of 69.96 Haque in 33 fractions to the gross disease withapproximately 50-52 Haque to the elective neck. Returns to clinic today with posttreatment PET from November 13, 2024 which is negative. We are pleased with his progress and he continues to have no issues with oral intake. The G-tube was placed by surgery here at [facility] and patient is hopeful to have this removed now that his weight is maintaining without any tubefeeds over the last 2+ weeks. We will refer him back for removal and will see him back in February 2025 for physical exam. Patient Instructions: refer for g-tube removal f/u as scheduled History of Present Illness HPI 84-year-old male who presented with right sided neck mass and right ear pain. February 14, 2024 CT of the neck with contrast shows an enlarged right level 2Aand 2B lymph nodes. Measuring 1.5 cm level 2B with a prominent subcentimeter left level 2A lymph node at 9 mm. Incidental right parotid nodule. February 29, 2024 underwent a right cervical lymph node biopsy positive for squamous cell carcinoma p16 positive March 27, 2024 PET confirmed bilateral cervical lymphadenopathy with uptake to the left mandible, no mets. April 07 2024 in office left gingival/mandible biopsy showed squamous atypia May 11 patient underwent direct laryngoscopy with biopsy of the right base of tongue lesion, pathology confirms p16 positive squamous cell carcinoma. Per the patient's notes from there was a contralateral left neck biopsy completed June 05. 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 Patient reported a history of prior radiation to the feet for warts many years ago. August 21, 2024 completed definitive chemoradiation 69.96 Haque in 33 fractions to the gross disease and 50-52 Haque to the elective neck Patient was seen by ENT at at the end of August 2024 and underwent flexible laryngoscopy. This showed that all the visualized areas were without evidence of disease. There was expected posttreatment change with thick mucus throughoutthe base of tongue and mild to the epiglottis. November 13, 2024 posttreatment PET negative. Continues to gain weight now up 13 pounds. Tolerating p.o. intake. No dysphagia. Does note dewlap underneath the neck. Patient is seen today for referral to get his g-tube removed. He states he has not supplemented with any tube feeds in the last 2 weeks plus and is doing very well with oral intake at home. His agrees. He denies dysphagia, nausea, vomiting, or any other concerns. His weight is overall stable, still up nearly 11-12lbs from end of treatment. He also has concerns that his tubing looks weirdsince he's stopped using this regularly. His does continue to flush this occasionally. Intake Vitals/Pain Assessment 12/26/24 13:08 Weight 72.121 kg Intake Visit Reasons: follow-up Allergies adhesive Allergy (Unknown, Verified 11/23/24 10:00) rash niacin (Niaspan Extended-Release) Allergy (Unknown, Verified 11/23/24 10:00) hives [facility] Medical History Medical History (Updated 11/23/24 @ 10:43 by Dennis Gray MD) Squamous cell carcinoma of oropharynx Pacemaker Prostate cancer surgery Neuropathy Vertigo Migraine Arthritis Glaucoma Pancreatic cyst Diverticulitis V tach GERD (gastroesophageal reflux disease) Arthritis Malignant neoplasm [...] Glaucoma Mother Heart disease History of stroke [facility] Problem: Diagnosed with Stroke Hypertension Emphysema lung ESRD (end stage renal disease) Sister Cancer [facility] Problem: Diagnosed with Cancer Lymphoma Social History Social History Smoking status: Never smoker Do you use any of these nicotine containing products: smokeless tobacco Smokeless tobacco user details: former Within the past year, how often did you have a drink containing alcohol: 2-4 times a month Alcohol type details: 2 glasses of wine per week. Within the past year, how many standard drinks containing alcohol did you have on a typical day: 3 or 4 Within the past year, how often did you have six or more drinks on one occasion: never AUDIT-C Alcohol total score: 3 AUDIT-C Alcohol score interpretation: A score less than 4 is consistent with normal alcohol consumption. In the past 12 months, have you used illegal drugs or prescription drugs for non-medical reasons?: Yes Physical Exam EXAM HEENT - Neck supple with dry skin but no desquamation noted. Post radiation changes to the R tonsillar pillar and throat. dry mucous membranes. No adenopathy noted Heart regular rate and rhythm Abdomen soft nontender not distended. g-tube in place. No surrounding erythema or edema. No drainage. The tube itself has brownish sediment in a portion of thetube without foul odor or drainage. Lymphatic system no lymphadenopathy noted on exam Neurological exam patient is cooperative alert and oriented x3 no focal deficits. Results - [facility] (Rad Onc) LAB RESULTS Glucose, (70-100) 108 mg/dL H 11/13/24, 12:40 BUN, (7-25) 29 mg/dL H 11/13/24, 12:40 Creatinine, (0.70-1.30) 0.80 mg/dL 11/13/24, 12:40 Est GFR (CKD-EPI) > 60.0 mL/Min 11/13/24, 12:40 Sodium, (136-145) 137 mmol/L 11/13/24, 12:40 Potassium, (3.5-5.1) 4.2 mmol/L 11/13/24, 12:40 Chloride, (98-107) 104 mmol/L 11/13/24, 12:40 Carbon Dioxide, (21.0-31.0) 26.6 mmol/L 11/13/24, 12 :40 Anion Gap, (6.0-15.0) 10.6 mEq/L 11/13/24, 12:40 Calcium, (8.6-10.3) 9.3 mg/dL 11/13/24, 12:40 Total Protein, (6.4-8.9) 7.3 gm/dL 11/13/24, 12:40 Albumin, (3.5-5.7) 4.2 gm/dL 11/13/24, 12:40 Globulin 3.1 gm/dL 11/13/24, 12:40 Albumin/Globulin Ratio 1.4 11/13/24, 12:40 Total Bilirubin, (0.3-1.0) 0.4 mg/dl 11/13/24, 12: 40 AST, (13-39) 15 U/L 11/13/24, 12:40 ALT, (7-52) 14 U/L 11/13/24, 12:40 Alkaline Phosphatase, (34-104) 80 U/L 11/13/24, 12:40 Social Determinants of Health Screening SDOH last assessed in clinic: 12/26/24 Will the patient participate in the screening?: Yes Do you worry about having a steady place to live?: No In the past 12 months, have you had to go without electric, gas, oil, or water in your home?: No Have you or anyone in your house had to go without enough food to eat?: No Has lack of reliable transportation kept you from medical appointments or from doing things needed for daily living?: No Has anyone in your support network made you feel unsafe for any reason?: No Does the patient want assistance with any of the above?: No Dictated By: Becky Crouch APRN DD/ [id number] Signed By: <Electronically signed by RAYSHAWN Crouch> 12/26/24 1343 [facility] Work Phone: Reason for referral (narrative) Referred by: Flori GARZA [facility] Reason for visit Narrative* Auth/Cert Specialty Diagnoses / Procedures Referred By Bakari rosado Referred To Contact Diagnoses 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] Procedures ND GLOSSECTOMY HEMIGLOSSECTOMY ND LARYNGOSCOPY W/WO TRACHEOSCOPY DX EXCEPT ND BRNCHSC INCL FLUOR GDNCE DX W/CELL WASHG SPX ND ESOPHAGOSCOPY FLEXIBLE TRANSORAL DIAGNOSTIC ND TONSILLECTOMY PRIMARY/SECONDARY AGE 12/> GLOSSECTOMY, ROBOT-ASSISTED, ORAL APPROACH Direct Laryngoscopy Bronchoscopy [place]ophag[place] [address] [place] [address] Phone: tel: fax: [facility] [place] [address] [place] [address] fax: Referral ID Status Reason Start Date Expiration Date Visits Re quested Visits Authorized [id number] 1 1 [facility] Work Phone: Retper for visit Narrative* Imaging (Routine) - Authorized Specialty Diagnoses / Procedures Referred By Bakari rosado Referred To Contact Radiology Diagnoses Enlarged submental lymph node Procedures US guided biopsy lymph node superficial [place] [address] [place] [address] Phone: tel: fax: Referral ID Status Reason Start Date Expiration Date Visits Requested Visits Authorized [id number] Authorized Perform Procedure 4 05/12/2025 1 1 [facility] Work Phone: Summary Purpose Family History [...] Documents on File Type Date Recorded Patient [employer] Power of Atty 05/11/2024 Living Will 05/11/2024 Documents on File Type Date Recorded Patient [employer] Power of Atty 05/11/2024 Living Will 05/11/2024 Advance Directive Response Recorded Date/ Time Advance Directives Yes July 26 8:22am Advance Directive Response Recorded Date/ Time Advance Directives Yes July 27 025 9:02am Chief Complaint and Reason for Visit [...] of tongue June 14, 2024 9:25am Mal Migeul base of tongue June 14 9:26am NEW tongue cancer June 14, 2024 1 0:28am Reason for Visit Admit Date Squamous cell carcinoma of oropharynx [facility] 2024 9:25am Tongue cancer June 14, 2024 9 :25am Squamous cell carcinoma of oropharynx [facility] 2024 10:28am Chief Complaint Admit Date NEW-Mal [...] Admit Date Squamous cell carcinoma of oropharynx [facility] 2024 9:25am Tongue cancer June 14, 2024 9 :25am Squamous cell carcinoma of oropharynx [facility] 2024 10:28am Encounter for palliative care June 182024 8:00am Squamous cell carcinoma of oropharynx [facility] 2024 8:00am Chief Complaint Admit Date NEW-Mal [...] Admit Date Squamous cell carcinoma of oropharynx [facility] 2024 9:25am Tongue cancer June 14, 2024 9 :25am Squamous cell carcinoma of oropharynx [facility] 2024 10:28am Encounter for palliative care June 182024 8:00am Squamous cell carcinoma of oropharynx [facility] 2024 8:00am Cancer associated pain July 12 7:36am Nausea July 12, 2024 7:36am Squamous cell carcinoma of oropharynx [facility] 2024 7:36am Squamous cell carcinoma of oropharynx [facility] 2024 8:29am Tongue cancer July 12, 2024 [...] Admit Date Squamous cell carcinoma of oropharynx [facility] 2024 8:13am Cancer associated pain July 26, 2024 8:22am Nausea July 26, 2024 8:2 2am Squamous cell carcinoma of oropharynx [facility] 2024 8:22am Chief Complaint Admit Date NEW-Mal [...] Admit Date Squamous cell carcinoma of oropharynx [facility] 2024 8:13am Cancer associated pain July 26, 2024 8:22am Nausea July 26, 2024 8:2 2am Squamous cell carcinoma of oropharynx [facility] 2024 8:22am Cancer associated pain August 02, 2024 7:29am Constipation August 02, 2024 7:2 9am Squamous cell carcinoma of oropharynx [facility] 2024 7:29am Thrush, oral August 02, 2024 [...] Admit Date Squamous cell carcinoma of oropharynx [facility] 2024 8:13am Cancer associated pain July 26, 2024 8:22am Nausea July 26, 2024 8:2 2am Squamous cell carcinoma of oropharynx [facility] 2024 8:22am Cancer associated pain August 02, 2024 7:29am Constipation August 02, 2024 7:2 9am Squamous cell carcinoma of oropharynx [facility] 2024 7:29am Thrush, oral August 02, 2024 7:2 9am Cancer associated pain August 09, 2024 7:51am Constipation August 09, 2024 7:5 1am Nausea August 09, 2024 7:5 1am Squamous cell carcinoma of oropharynx [facility] 2024 7:51am Squamous cell carcinoma of oropharynx [facility] 2024 9:23am Chief Complaint Admit Date NEW-Mal [...] Admit Date Squamous cell carcinoma of oropharynx [facility] 2024 8:13am Cancer associated pain July 26, 2024 8:22am Nausea July 26, 2024 8:2 2am Squamous cell carcinoma of oropharynx [facility] 2024 8:22am Cancer associated pain August 02, 2024 7:29am Constipation August 02, 2024 7:2 9am Squamous cell carcinoma of oropharynx [facility] 2024 7:29am Thrush, oral August 02, 2024 7:2 9am Cancer associated pain August 09, 2024 7:51am Constipation August 09, 2024 7:5 1am Nausea August 09, 2024 7:5 1am Squamous cell carcinoma of oropharynx [facility] 2024 7:51am Squamous cell carcinoma of oropharynx [facility] 2024 9:23am Cancer associated pain August 16, 2024 7 :59am Constipation August 16, 2024 7:59 am Nausea August 16, 2024 7:59 am Squamous cell carcinoma of oropharynx [facility] 2024 7:59am Chief Complaint Admit Date [...] Admit Date Squamous cell carcinoma of oropharynx [facility] 2024 8:13am Cancer associated pain July 26, 2024 8:22am Nausea July 26, 2024 8:2 2am Squamous cell carcinoma of oropharynx [facility] 2024 8:22am Cancer associated pain August 02, 2024 7:29am Constipation August 02, 2024 7:2 9am Squamous cell carcinoma of oropharynx [facility] 2024 7:29am Thrush, oral August 02, 2024 7:2 9am Cancer associated pain August 09, 2024 7:51am Constipation August 09, 2024 7:5 1am Nausea August 09, 2024 7:5 1am Squamous cell carcinoma of oropharynx [facility] 2024 7:51am Squamous cell carcinoma of oropharynx [facility] 2024 9:23am Cancer associated pain August 16, 2024 7 :59am Constipation August 16, 2024 7:59 am Nausea August 16, 2024 7:59 am Squamous cell carcinoma of oropharynx [facility] 2024 7:59am Fever August 20, 2024 7:35 [...] Admit Date Squamous cell carcinoma of oropharynx [facility] 2024 8:13am Cancer associated pain July 26, 2024 8:22am Nausea July 26, 2024 8:2 2am Squamous cell carcinoma of oropharynx [facility] 2024 8:22am Cancer associated pain August 02, 2024 7:29am Constipation August 02, 2024 7:2 9am Squamous cell carcinoma of oropharynx [facility] 2024 7:29am Thrush, oral August 02, 2024 7:2 9am Cancer associated pain August 09, 2024 7:51am Constipation August 09, 2024 7:5 1am Nausea August 09, 2024 7:5 1am Squamous cell carcinoma of oropharynx [facility] 2024 7:51am Squamous cell carcinoma of oropharynx [facility] 2024 9:23am Cancer associated pain August 16, [...] Admit Date Squamous cell carcinoma of oropharynx [facility] 2024 8:13am Cancer associated pain July 26, 2024 8:22am Nausea July 26, 2024 8:2 2am Squamous cell carcinoma of oropharynx [facility] 2024 8:22am Cancer associated pain August 02, 2024 7:29am Constipation August 02, 2024 7:2 9am Squamous cell carcinoma of oropharynx [facility] 2024 7:29am Thrush, oral August 02, 2024 7:2 9am Cancer associated pain August 09, 2024 7:51am Constipation August 09, 2024 7:5 1am Nausea August 09, 2024 7:5 1am Squamous cell carcinoma of oropharynx [facility] 2024 7:51am Squamous cell carcinoma of oropharynx [facility] 2024 9:23am Cancer associated pain August 16, [...] 9:39 am Follow Up 1 Month, H+N Nicole 24th, 2025 9:14am Mal Miguel base of tongue September 07, 2024 9:36am isidro/annual visit September 11, 2024 9:5 5am no bowel movement x 7 days September 20, 2024 2:54pm Chief Complaint Admit Date Tongue Cancer July 03, 2024 2:00pm Mal [...] 1 Month, H+N September 07, 2024 9:14am isidro/annual visit September 11, 2024 9:5 5am no bowel movement x 7 days September 20, 2024 2:54pm Mal Miguel base of tongue September 25, 2024 12 :34pm Patient here for a f/u in office September 2:36pm Reason for Visit Admit Date Squamous cell carcinoma of oropharynx [facility] 2024 8:13am Cancer associated pain July 26, 2024 8:22am Nausea July 26, 2024 8:2 2am Squamous cell carcinoma of oropharynx [facility] 2024 8:22am Cancer associated pain August 02, 2024 7:29am Constipation August 02, 2024 7:2 9am Squamous cell carcinoma of oropharynx [facility] 2024 7:29am Thrush, oral August 02, 2024 7:2 9am Cancer associated pain August 09, 2024 7:51am Constipation August 09, 2024 7:5 1am Nausea August 09, 2024 7:5 1am Squamous cell carcinoma of oropharynx [facility] 2024 7:51am Squamous cell carcinoma of oropharynx [facility] 2024 9:23am Cancer associated pain August 16, [...] carcinoma of oropharynx Ap ril 2024 9:55am Cancer associated pain September 26, 2024 2: 36pm Squamous cell carcinoma of oropharynx Ne y 2024 2:36pm Thrush, oral September 26, 2024 2:36p m Chief Complaint Admit Date Follow Up 1 Month, H+N September 07, 2024 9:14am isidro/annual visit September 11, 2024 9:5 5am no bowel movement x 7 days September 20, 2024 2:54pm Patient here for a f/u in office September 2:36pm head and neck cancer, dysphagia September 9:40am Follow Up 3 Months November 23, 2024 9:41 am Mal Miguel base of tongue November 23, 2024 9 :54am Med Onc/Rad Onc Follow Up, Review PET Ju ly 2024 10:01am Reason for Visit Admit Date Tongue cancer September 07, 2024 9:1 4am CAD (coronary artery disease) August 9:55am Central sleep apnea September 11, 2024 9:5 5am DM (diabetes mellitus) September 11, 2024 9:55am Essential hypertension September 11, 2024 9:55am Obstructive sleep apnea September 11, 2024 9:55am Squamous cell carcinoma of oropharynx Ap ril 2024 9:55am Cancer associated pain September 26, 2024 2: 36pm Squamous cell carcinoma of oropharynx Ma y 2024 2:36pm Thrush, oral September 26, 2024 2:36p m Cancer associated pain November 23, 2024 7 :46am Squamous cell carcinoma of oropharynx [facility] 2024 7:46am Squamous cell carcinoma of oropharynx [facility] 2024 9:41am Tongue cancer November 23, 2024 10:0 1am Reason for Visit Admit Date Tongue cancer September 07, 2024 9:1 4am CAD (coronary artery disease) August 9:55am Central sleep apnea September 11, 2024 9:5 5am DM (diabetes mellitus) September 11, 2024 9:55am Essential hypertension September 11, 2024 9:55am Obstructive sleep apnea September 11, 2024 9:55am Squamous cell carcinoma of oropharynx Ap ril 2024 9:55am Cancer associated pain September 26, 2024 2: 36pm Squamous cell carcinoma of oropharynx Ma y 2024 2:36pm Thrush, oral September 26, 2024 2:36p m Cancer associated pain November 23, 2024 7 :46am Squamous cell carcinoma of oropharynx [facility] 2024 7:46am Squamous cell carcinoma of oropharynx Ju [facility] 2024 9:41am Squamous cell carcinoma of oropharynx Ju [facility] 2024 10:01am Chief Complaint Admit Date head and neck cancer, dysphagia September 9:40am Follow Up 3 Months November 23, 2024 9:41 am Med Onc/Rad Onc Follow Up, Review PET Ju ly 2024 10:01am Mal Miguel base of tongue December 26, 2024 1:25pm Reason for Visit Admit Date Cancer associated pain November 23, 2024 7 :46am Squamous cell carcinoma of oropharynx [facility] 2024 7:46am Squamous cell carcinoma of oropharynx [facility] 2024 9:41am Squamous cell carcinoma of oropharynx [facility] 2024 10:01am Squamous cell carcinoma of oropharynx [facility] 2024 12:32pm Assessments No Assessments Information Available Reason for Referral Specialty Diagnoses / Procedures Referred By Bakari rosado Referred To Contact Diagnoses Migraine without aura and without status migrainosus, not intractable (CMS/HCC) Missy Westfall PA [address] [place] [address] Referral ID Status Reason Start Date Expiration Date V isits Requested Visits Authorized [id number] Pending Review 02/16/2024 08/14/2024 1 1 Specialty Diagnoses / Procedures Referred By Bakari rosado Referred To Contact MR IMAGING Diagnoses IPMN (intraductal papillary mucinous neoplasm) Procedures MRI 3D POST PROCESSING 3D RENDERING W/INTERP&POSTPROC [place] [address] [place] [id number] Mr Imaging [id number] Referral ID Status Reason Start Date Expiration Date Visits Requested Visits Authorized [id number] New Request Auto-Generat ed Referral 02/01/2024 03/02/2025 1 1 Specialty Diagnoses / Procedures Referred By Bakari rosado Referred To Contact MR IMAGING Diagnoses IPMN (intraductal papillary mucinous neoplasm) Procedures MRI PANC/TRISH WO/W IVCON MRI ABDOMEN W/O & W/[place] [address] [id number] Referral ID Status Reason Start Date Expiration Date Visits Requested Visits Authorized [id number] New Request Auto-Generat ed Referral 02/01/2024 03/02/2025 [...] section and content) DATE CREATED AUTHOR 02/08/2020 [place] DATE CREATED AUTHOR AUTHOR'S ORGANIZ ATION 09/30/2022 [facility] DATE CREATED AUTHOR AUTHOR'S ORGANIZ ATION 02/04/2023 [facility] DATE CREATED AUTHOR AUTHOR'S ORGANIZ ATION 04/01/2024 [facility] DATE CREATED AUTHOR AUTHOR'S ORGANIZ ATION 04/19/2024 [facility] Center DATE CREATED AUTHOR AUTHOR'S ORGANIZ ATION 07/05/2024 [facility] DATE CREATED AUTHOR AUTHOR'S ORGANIZ ATION 07/21/2024 [facility] DATE CREATED AUTHOR AUTHOR'S ORGANIZ ATION 07/22/2024 [facility] DATE CREATED AUTHOR AUTHOR'S ORGANIZ ATION 09/03/2024 Clifton Coffey [facility] DATE CREATED AUTHOR AUTHOR'S ORGANIZ ATION 10/15/2024 [facility] DATE CREATED AUTHOR AUTHOR'S ORGANIZ ATION 10/31/2024 [facility] DATE CREATED AUTHOR AUTHOR'S ORGANIZ ATION 12/01/2024 [facility] Center DATE CREATED AUTHOR AUTHOR'S ORGANIZ ATION 12/15/2024 [facility] DATE CREATED AUTHOR AUTHOR'S ORGANIZ ATION 12/27/2024 [facility] DATE CREATED AUTHOR AUTHOR'S ORGANIZ ATION 01/17/2025 [facility] DATE CREATED AUTHOR AUTHOR'S ORGANIZ ATION 01/20/2025 [facility] Specialists EPIC REASON FOR VISIT (unrecogniz ed section and content) Reason Comments Consult PE Reason Comments Received Outside Medical Records Reason Comments Back Pain Dizziness Neck Pain Reason Comments Parotid mass Parotid mass Reason Comments MRI 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 Specialty Diagnoses / Procedures Referred By Contac t Referred To Contact General Surgery Diagnoses Malignant neoplasm of oropharynx, unspecified (CMS/HCC) Procedures ND UNLISTED [employer]UATION [employer] MANAGEMENT SERVICE Dennis Gray MD [address] [place] [address] Phone: tel: fax: Stacey Hinojosa, DO [address] [address] Phone: tel: fax: Referral ID Status Reason Start Date Expiration Date Visits Re quested Visits Authorized [id number] Closed 06/14/2024 12/11/2024 1 1 Reason Comments Follow-up Reason Comments urgent need for gastrostomy tube Reason Comments 1st pow gastrostomy tube placement Reason Comments Gastrostomy tube removal Specialty Diagnoses / Procedures Referred By Contac t Referred To Contact General Surgery Diagnoses Malignant neoplasm of oropharynx, unspecified (HCC) Procedures ND UNLISTED [employer]ATION [employer] MANAGEMENT SERVICE Gelacio Paredes MD Phone: tel: fax: Veena Adkins, DO [address] [address] Phone: tel: fax: Referral ID Status Reason Start Date Expiration Date Visits Re quested Visits Authorized [id number] Closed 12/26/2024 06/24/2025 1 1 Reason Comments Removal of gastrostomy tube Patient Care team informatio n [...] Provider Active Start: July 05, 2024 Mary Schneider MD Referring Provider Active S tart: July 05, 2024 Dennis Gray MD Attending Provid er, Other Provider Active Start: July 05, [...] Provider Active Start: July 06, 2024 Mary Schneider MD Referring Provider Active S tart: July 06, 2024 Dennis Gray MD Other Provider Active St art: July 06, 2024 Maribeth Hull MD Attending Provider Active Start: July 06, 2024 Team Status: Active Member Role Status Dates Demetrius Cooper MD Primary Care Provider Active Start: July 10, 2024 Mary Schneider MD Referring Provider Active S tart: July 10, 2024 Dennis Gray MD Attending Provid er, Other Provider Active Start: July 10, [...] Provider Active Start: July 12, 2024 Mary Schneider MD Referring Provider Active S tart: July 12, 2024 Dennis Gray MD Other Provider Active St art: July 12, 2024 Maribeth Hull MD Attending Provider Active Start: July 12, 2024 Team Status: Active Member Role Status Dates Demetrius Cooper MD Primary Care Provider Active Start: July 17, 2024 Mary Schneider MD Referring Provider Active S tart: July [...] 2024 Team Status: Inactive Member Role Status Tati Cooper MD Primary [...] Provider Active Start: July 19, 2024 Mary Schneider MD Referring Provider Active S tart: July 19, 2024 Dennis Gray MD Active Star t: July 19, 2024 Talib Faustin MD Other Provider Active Start: July 19, 2024 Maribeth Hull MD Attending Provider Active Start: July 19, 2024 Team Status: Inactive Member Role Status Dates Demetrius oCoper MD Primary Care Provider Active Start: July 20, 2024 End: July 20, 2024 Talib Faustin MD Attending Provider Active Start: July 20, 2024 End: July 20, 2024 Team Status: Active Member Role Status Dates Demetrius Cooper MD Primary Care Provider Active Start: July 24, 2024 Mary Schneider MD Referring Provider Active S tart: July 24, 2024 Dennis Gray MD Active Star t: July 24, 2024 Talib Faustin MD Other Provider Active Start: July 24, 2024 Luisana Johns MD Attending Provider Active Start: July 24, 2024 Team Status: Active Member Role Status Dates Demetrius Cooper MD Primary Care Provider Active Start: July 26, 2024 Mary Schneider MD Referring Provider Active S tart: July [...] Provider Active Start: July 31, 2024 Mary Schneider MD Referring Provider Active S tart: July [...] Provider Active Start: August 02, 2024 Mary Schneider MD Referring Provider Active S tart: August 02, 2024 Dennis Gray MD Other Provider Active St art: August 02, 2024 Talib Faustin MD Active St art: August 02, 2024 Maribeth Hull MD Attending Provider Active Start: August 02, 2024 Team Status: Active Member Role Status Dates Demetrius Cooper MD Primary Care Provider Active Start: August 07, 2024 Mary Schneider MD Referring Provider Active S tart: August 07, 2024 Dennis Gray MD Attending Provider Active Start: August 07, 2024 Talib Fasutin MD Other Provider Active Start: August 07, 2024 Team Status: Inactive Member Role Status Dates Demetrius Cooper MD Primary Care Provider Active Start: August 09, 2024 End: August 09, 2024 Debora Wild APRN Attending Provider Active Start: August 09, 2024 End: August 09, 2024 Team Status: Active Member Role Status Dates Demetrius Cooper MD Primary Care Provider Active Start: August 09, 2024 Mary Schneider MD Referring Provider Active S tart: August 09, 2024 Dennis Gray MD Other Provider Active St art: August 09, 2024 Talib Faustin MD Active St art: August 09, 2024 Maribeth Hull MD Attending Provider Active Start: August 09, 2024 Team Status: Inactive Member Role Status Dates eDmetrius Cooper MD Primary Care Provider Active Start: [...] Provider Active Start: August 14, 2024 Mary Schneider MD Referring Provider Active S tart: August 14, 2024 Dennis Gray MD Attending Provider Active Start: August 14, 2024 Talib Faustin MD Other Provider Active Start: August 14, 2024 Team Status: Active Member Role Status Tati Cooper MD Primary Care Provider Active Start: August 15, 2024 Mary Schneider MD Referring Provider Active S tart: August [...] Admit Provider Active Start: A pril 2024 End: August 21, 2024 Yash Thomas [...] Start: A pril 2024 Yash Thomas MD Attending Provider, Other Provider Active Start: August 21, 2024 Zeke Brennan MD Other Provider Active Start: August 21, 2024 Team Status: Active Member Role Status Dates Demetrius Cooper MD Primary Care Provider Active Start: August 21, 2024 Mary Schneider MD Referring Provider Active S tart: August [...] September 07, 2024 End: September 07, 2024 Olgaflori Crouch APRN Attending Provider Acti ve Start: September 07, 2024 End: September 07, 2024 Team Status: Active Member Role Status Dates Demetrius Cooper MD Primary Care Provider Active Start: September 07, 2024 Mary Schneider MD Referring Provider Active S tart: September [...] Provider Active Start: June 20, 2024 Mary Schneider MD Referring Provider Active S tart: June 20, 2024 Dennis Gray MD Other Provider Active St art: June 20, 2024 Luisana Johns MD Attending Provider Active Start: June 20, 2024 Team Status: Active Member Role Status Dates Demetrius Cooper MD Primary Care Provider Active Start: August 17, 2024 Mary Schneider MD Referring Provider Active S tart: August [...] Active Anjali Ruby NP-C Attending Provider Active Senior Data Integration Developer Relationship Specialty Start Date End Date Anjali Ruby CNP [address] [place] [address] Referring Family Medicine 03/03/23 Senior Data Integration Developer Relationship Specialty Start Date End Date Anjali Ruby CNP [address] [place] [address] Referring Family Medicine 03/03/23 Team Status: Inactive [...] September 02, 2023 End: September 02, 2023 Senior Data Integration Developer Relationship Specialty Start Date End Date Anjali Ruby CNP [address] [place] [address] Referring Family Medicine 03/03/23 Senior Data Integration Developer Relationship Specialty Start Date End Date Demetrius Cooper MD [address] [place] [phone] PCP - General Family Medicine 01/26/24 Clarissa Corado MD [address] [place] [address] Referring Physician Neurology 08/03/23 Senior Data Integration Developer Relationship Specialty Start Date End Date Demetrius Cooper MD [address] [place] [phone] PCP - General Family Medicine 01/26/24 Clarissa Corado MD [address] [place] [address] Referring Physician Neurology 08/03/23 Senior Data Integration Developer Relationship Specialty Start Date End Date Demetrius Cooper MD [address] [place] [phone] PCP - General Family Medicine 01/26/24 Clarissa Corado MD [address] [place] [address] Referring Physician Neurology 08/03/23 Senior Data Integration Developer Relationship Specialty Start Date End Date Anjali Ruby CNP [address] [place] [address] Referring Family Medicine 03/03/23 Team Status: Inactive Member Role Status Dates Demetrius Cooper MD Primary Care Provider Active Start: February 29, 2024 End: February 29, 2024 Luc Ham Jr, MD Attending Provider Active Start: February 29, 2024 End: February 29, 2024 Senior Data Integration Developer Relationship Specialty Start Date End Date Demetrius Cooper MD [address] [place] [phone] PCP - General Family Medicine 01/26/24 Clarissa Corado MD [address] [place] [address] Referring Physician Neurology 08/03/23 Senior Data Integration Developer Relationship Specialty Start Date End Date Demetrius Cooper MD [address] [place] [phone] PCP - General Family Medicine 01/26/24 Clarissa Corado MD [address] [place] [id number] Referring Physician Neurology 08/03/23 Senior Data Integration Developer Relationship Specialty Start Date End Date Demetrius Cooper MD [address] [place] [phone] PCP - General Family Medicine 01/26/24 Clarissa Corado MD [address] [place] [id number] Referring Physician Neurology 08/03/23 Senior Data Integration Developer Relationship Specialty Start Date End Date Demetrius Cooper MD [address] [place] [address] PCP - General Family Medicine 03/27/24 Anjali Ruby CNP [place] [address] Referring Family Medicine 03/03/23 Luc Ham MD [facility] [address] [place] [address] [facility] [place] [phone] Ent - Otolaryngology 03/10/24 Senior Data Integration Developer Relationship Specialty Start Date End Date Demetrius Cooper MD [address] [place] [address] PCP - General Family Medicine 01/26/24 Clarissa Corado MD [address] [place] [address] Referring Physician Neurology 08/03/23 Senior Data Integration Developer Relationship Specialty Start Date End Date Demetrius Cooper MD [address] [facility] [place] [address] PCP - General Family Medicine 04/11/24 Senior Data Integration Developer Relationship Specialty Start Date End Date Demetrius Cooper MD [address] [facility] [place] [address] PCP - General Family Medicine 04/11/24 Senior Data Integration Developer Relationship Specialty Start [place] [address] [place] [address] [place] [address] PCP - General Family Medicine 04/11/24 Senior Data Integration Developer Relationship Specialty Start [place] [address] [place] [address] [place] [address] PCP - General Family Medicine 04/11/24 Team Status: Inactive Member Role Status Dates Demetrius Cooper MD Primary Care Provider Active Start: June 14, 2024 End: June 14, 2024 Talib Faustin MD Attending Provider Active Start: June 14, 2024 End: June 14, 2024 Mary Schneider MD Referring Provider Active S tart: June 14, 2024 End: June 14, 2024 Team Status: Active Member Role Status Dates Demetrius Cooper MD Primary Care Provider Active Start: June 14, 2024 Talib Faustin MD Attending Provider Active Start: June 14, 2024 Mary Schneider MD Referring Provider Active S tart: June 14, 2024 Team Status: Inactive Member Role Status Dates Demetrius Cooper MD Primary Care Provider Active Start: June 14, 2024 End: June 14, 2024 Dennis Gray MD Attending Provider Active Start: June 14, 2024 End: June 14, 2024 Mary Schneider MD Referring Provider Active S tart: June 14, 2024 End: June 14, 2024 Senior Data Integration Developer Relationship Specialty Start Date End Date Demetrius Cooper MD [address] [place] [phone] PCP - General Family Medicine 01/26/24 Clarissa Corado MD [address] [place] [address] Referring Physician Neurology 08/03/23 Team Status: Active Member Role Status Dates Demetrius Coopre MD Primary Care Provider Active Start: June 20, 2024 Mary Schneider MD Referring Provider Active S tart: June 20, 2024 Dennis Gray MD Attending Provider Active Start: June 20, 2024 Senior Data Integration Developer Relationship Specialty Start Date End Date Demetrius Cooper MD [address] [place] [phone] PCP - General Family Medicine 01/26/24 Clarissa Corado MD [address] [place] [address] Referring Physician Neurology 08/03/23 Team Status: Active Member Role Status Dates Demetrius Cooper MD Primary Care Provider Active Start: July 06, 2024 Mary Schneider MD Referring Provider Active S tart: July [...] Provider Active Start: July 12, 2024 Mary Schneider MD Referring Provider Active S tart: July 12, 2024 Dennis Gray MD Attending Provider Active Start: July 12, 2024 Talib Faustin MD Active St art: July 12, 2024 Team Status: Active Member Role Status Dates Demetrius Cooper MD Primary Care Provider Active Start: July 13, 2024 Mary Schneider MD Referring Provider Active S tart: July 13, 2024 Dennis Gray MD Attending Provider Active Start: July 13, 2024 Talib Faustin MD Other Provider Active Start: July 13, 2024 Team Status: Active Member Role Status Dates Demetrius Cooper MD Primary Care Provider Active Start: July 17, 2024 Mary Schneider MD Referring Provider Active S tart: July 17, 2024 Dennis Gray MD Active Star t: July 17, 2024 Talib Faustin MD Attending Provider Active Start: July 17, 2024 Team Status: Active Member Role Status Dates Demetrius Cooper MD Primary Care Provider Active Start: July 20, 2024 Mary Schneider MD Referring Provider Active S tart: July [...] Provider Active Start: July 26, 2024 Mary Schneider MD Referring Provider Active S tart: July 26, 2024 Dennis Gray MD Active Star t: July 26, 2024 Talib Faustin MD Attending Provider Active Start: July 26, 2024 Team Status: Active Member Role Status Dates Demetrius Cooper MD Primary Care Provider Active Start: July 27, 2024 Mary Schneider MD Referring Provider Active S tart: July 27, 2024 Dennis Gray MD Active Star t: July 27, 2024 Talib Faustin MD Other Provider Active Start: July 27, 2024 Luisana Johns MD Attending Provider Active Start: July 27, 2024 Team Status: Active Member Role Status Dates Dennis Gray MD Attending Provider Active Start: July 27, 2024 Demetrius Cooper MD Primary Care Provider Active Start: July 27, 2024 Team Status: Active Member Role Status Dates Demetrius Cooper MD Primary Care Provider Active Start: July 24, 2024 Mary Schneider MD Referring Provider Active S tart: July 24, 2024 Dennis Gray MD Attending Provider Active Start: July 24, 2024 Talib Faustin MD Other Provider Active Start: July 24, 2024 Team Status: Active Member Role Status Dates Demetrius Cooper MD Primary Care Provider Active Start: August 03, 2024 Mary Schneider MD Referring Provider Active S tart: August [...] Provider Active Start: August 10, 2024 Mary Schneider MD Referring Provider Active S tart: August 10, 2024 Dennis Gray MD Attending Provider Active Start: August 10, 2024 Talib Faustin MD Other Provider Active Start: August 10, 2024 Team Status: Active Member Role Status Dates Demetrius Cooper MD Primary Care Provider Active Start: August 16, 2024 Mary Schneider MD Referring Provider Active S tart: August 16, 2024 Dennis Gray MD Attending Provider Active Start: August 16, 2024 Talib Faustin MD Active St art: August 16, 2024 Team Status: Active Member Role Status Dates Demetrius Cooper MD Primary Care Provider Active Start: August 18, 2024 Mary Schneider MD Referring Provider Active S tart: August 18, 2024 Dennis Gray MD Active Star t: August 18, 2024 Tailb Faustin MD Attending Provider Active Start: August 18, 2024 Team Status: Active Member Role Status Dates Demetrius Cooper MD Primary Care Provider Active Start: August 20, 2024 Louie Marrero DO Emergency Provider Active Sta rt: August 20, 2024 Jaiden Nanec MD Admit Provider, Attending Provider A ctive Start: August 20, 2024 Senior Data Integration Developer Relationship Specialty Start Date End Date Demetrius Cooper MD [address] [facility] [place] [place] [address] PCP - General Family Medicine 04/11/24 Senior Data Integration Developer Relationship Specialty Start Date End Date Demetrius Cooper MD [address] [place] [address] PCP - General Family Medicine 01/26/24 Clarissa Corado MD Referring Physician Neurology 08/03/23 Senior Data Integration Developer Relationship Specialty Start Date End Date Demetrius Cooper MD [address] [place] [address] PCP - General Family Medicine 01/26/24 Clarissa Corado MD Referring Physician Neurology 08/03/23 Team Status: Active Member Role Status Dates Demetrius Cooper MD Primary Care Provider Active Start: September 25, 2024 Mary Schneider MD Referring Provider Active S tart: September 25, 2024 Dennis Gray MD Active Star t: September 25, 2024 Talib Faustin MD Attending Provider Active Start: September 25, 2024 Team Status: Inactive Member Role Status Dates Demetrius Cooper MD Primary Care Provider Active Start: September 26, 2024 End: September 26, 2024 Debora Wild APRN Attending Provider Active Start: September 26, 2024 End: September 26, 2024 Senior Data Integration Developer Relationship Specialty Start Date End Date Demetrius Cooper MD [address] [place] [address] PCP - General Family Medicine 01/26/24 Clarissa Corado MD Referring Physician Neurology 08/03/23 Senior Data Integration Developer Relationship Specialty Start Date End Date Demetrius Cooper MD [address] [place] [address] PCP - General Family Medicine 01/26/24 Clarissa Corado MD Referring Physician Neurology 08/03/23 Senior Data Integration Developer Relationship Specialty Start Date End Date Demetrius Cooper MD [address] [place] [address] PCP - General Family Medicine 01/26/24 Clarissa Corado MD Referring Physician Neurology 08/03/23 Team Status: Inactive Member Role Status Dates Demetrius Cooper MD Primary Care Provider Active Start: October 03, 2024 End: October 03, 2024 Veena Adkins DO Attending Provider Active Start: October 03, 2024 End: October 03, 2024 Team Status: Active Member Role Status Tati Cooper MD Primary Care Provider Active Start: November 23, 2024 Debora Wild APRN Attending Provider Active Start: November 23, 2024 Team Status: Inactive Member Role Status Tati Cooper MD Primary Care Provider Active Start: November 23, 2024 End: November 23, 2024 Talib Faustin MD Attending Provider Active Start: November 23, 2024 End: November 23, 2024 Team Status: Active Member Role Status Tati Cooper MD Primary Care Provider Active Start: November 23, 2024 Mary Schneider MD Referring Provider Active S tart: November 23, 2024 Talib Faustin MD Attending Provider Active Start: November 23, 2024 Team Status: Active Member Role Status Tati Cooper MD Primary Care Provider Active Start: November 23, 2024 Dennis Gray MD Attending Provider Active Start: November 23, 2024 Team Status: Inactive Member Role Status Tati Cooper MD Primary Care Provider Active Start: November 23, 2024 End: November 23, 2024 Dennis Gray MD Attending Provider Active Start: November 23, 2024 End: November 23, 2024 Team Status: Inactive Member Role Status Tati Cooper MD Primary Care Provider Active Start: November 23, 2024 End: November 23, 2024 Debora Wild APRN Attending Provider Active Start: November 23, 2024 End: November 23, 2024 Senior Data Integration Developer Relationship Specialty Start Date End Date Demetrius Cooper MD [facility] [place] [address] PCP - General Family Medicine 04/11/24 Team Status: Active Member Role Status Tati Cooper MD Primary Care Provider Active Start: November 23, 2024 Debora Wild APRN Attending Provider Active Start: November 23, 2024 Debora Wild APRN Other Provider Active Start: November 23, 2024 Team Status: Inactive Member Role Status Tati Cooper MD Primary Care Provider Active Start: December 26, 2024 End: December 26, 2024 Becky Cazares RAYSHAWN Crouch Attending Provider Acti ve Start: December 26, 2024 End: December 26, 2024 Team Status: Active Member Role Status Dates Demetrius Cooper MD Primary Care Provider Active Start: December 26, 2024 Mary Schneider MD Referring Provider Active S tart: December 26, 2024 Talib Faustin MD Attending Provider Active Start: December 26, 2024 Senior Data Integration Developer Relationship Specialty Start Date End Date Demetrius Cooper MD [address] [place] [address] PCP - General Family Medicine 01/26/24 Clarissa Corado MD Referring Physician Neurology 08/03/23 Senior Data Integration Developer Relationship Specialty Start Date End Date Demetrius Cooper MD [address] [place] [address] PCP - General Family Medicine 01/26/24 Clarissa [...] or prosecute any alcohol or drug abuse patient.[facility] the event this information is protected by the Federal Confidentiality of Alcohol and Drug Abuse Patient Records regulations: The Federal rules restrict any use of the information to criminally investigate or prosecute any alcohol or drug abuse patient.[facility] the event this information is protected by the Federal Confidentiality of Alcohol and Drug Abuse Patient Records regulations: The Federal rules restrict any use of the information to criminally investigate or prosecute any alcohol or drug abuse patient.[facility] the event this information is protected by the Federal Confidentiality of Alcohol and Drug Abuse Patient Records regulations: The Federal rules restrict any use of the information to criminally investigate or prosecute any alcohol or drug abuse patient.[facility] the event this information is protected by the Federal Confidentiality of Alcohol and Drug Abuse Patient Records regulations: The Federal rules restrict any use of the information to criminally investigate or prosecute any alcohol or drug abuse patient.[facility] PRN Active and Recently Administ ered Medications (unrecognized section and content) Medication Order 05/09/2024 05/10/2024 05/11/2024 oxymetazoline (Afrin) 0.05 % nasal spray (CANCELED) As needed, Starting on Shira 05/11/24 at 0750, Intraprocedure 0750 (Given - Provid er: Mary Schneider MD) sodium chloride 0.9 % irrigation solution (CANCELED) As needed, Starting on Shira 05/11/24 at 0750, Intraprocedure 0750 (Given - Provid er: Mary Schneider MD) sterile water irrigation solution (CANCELED) As needed, Starting on Shira 05/11/24 at 0750, Intraprocedure 0750 (Given - Provid er: Mary Schneider MD - Comment: FOR SCOPE) FOR RECORDS [...] BE BASED ON THE PRIMARY CLINICAL RECORDS. [email or web address] provides no warranty or guarantee of the accuracy or completeness of information in this document.
--- NOTE | 2025-02-02 07:40 | CT_ITS ---
The [address] [address] Patient Name: JEREMIE GROSS MRN: [id number] date: 1940 Sex: M Assigned Patient Location: LAB Current Patient Location: LAB Accession/Order Number: [id number] Exam Date: 02/02/2025 08:45 Report Date: 02/02/2025 09:42 At the request of: LEONARDO ARMSTRONG MD Procedure: CT abdomen pelvis w con CT ABDOMEN AND PELVIS WITH CONTRAST COMPARISON: 03/30/2020 CLINICAL DATA: Right upper quadrant pain for couple of years. Spiral images were obtained through the abdomen and pelvis following oral and 100 mL of Omnipaque 300. This CT exam was performed using one or more following dose reduction techniques: Automated exposure control, adjustment of the mA and/or kV according to patient size, or use of iterative reconstruction technique. Limited cuts through the lung bases show atelectasis and/or scarring. There are small noncalcified nodular densities bilaterally measuring up to 5 mm. There were also some nodules present at the time of the comparison. The gallbladder is surgically absent. No common duct stones are noted. No intrahepatic masses are seen. The spleen, pancreas and adrenal glands show no acute findings. There are symmetric renal nephrograms, without hydronephrosis. There is atherosclerotic plaque involving the aorta, iliac and some of the visceral arteries. No enlarged lymph nodes or ascites are seen. There is a tiny umbilical hernia containing fat. No dilated small bowel loops are noted. There are tubular filling defects with diameter up to 5 to 6 mm within the stomach and small bowel loops on the left. This may be food debris though clinical correlation is suggested to exclude any possibility of foreign bodies or parasites. There is mild stool along the colon. There are also scattered colonic diverticula. Degenerative changes are present at the spine and SI joints. Images through the pelvis show no dilated small bowel. No appendiceal inflammation is seen. There is mild distal colonic stool. Additional descending and sigmoid diverticula are visualized. There is no associated active inflammation. There is a penile prosthesis with reservoir deep to the lower rectus muscle on the right. The prostate is surgically absent. The urinary bladder wall appears slightly thickened though this may relate to incomplete distention. There is no ascites. CT/CT abdomen pelvis w con IMPRESSION: TINY PULMONARY NODULES AT BOTH LUNG BASES. NODULARITY WAS ALSO PRESENT PREVIOUSLY. NO BOWEL OR URINARY TRACT OBSTRUCTION. CLINICAL CORRELATION IS RECOMMENDED FOR TUBULAR FILLING DEFECTS WITHIN THE STOMACH AND LEFT UPPER QUADRANT SMALL BOWEL, DISCUSSED ABOVE. DIVERTICULOSIS. SLIGHT URINARY BLADDER WALL THICKENING. THIS MAY RELATE TO INCOMPLETE DISTENTION THOUGH CORRELATION IS RECOMMENDED TO EXCLUDE CYSTITIS. NO OTHER ACUTE FINDINGS. Impression dictated by: Lorene Valdez M.D. 02/02/2025 9:42 AM Dictation Location: [facility]GCD Systeme Electronically authenticated by: [id number] Y Date: 02/02/2025 09:42
[2025-02-02 07:46] LABS: Estimated GFR (African America >60 (>=60 mL/min/1.73m^2); Estimated GFR (Non-African Ame >60 (>=60 mL/min/1.73m^2)
[2025-02-02] MEDS: HEPARIN SODIUM (PORCINE) PF LOCK FLUSH 500 UNIT/5 ML SYRINGE IV (08:55)
--- NOTE | 2025-02-02 09:10 | SUR.PREOP ---
0830 Verified pt has a power port. Swabbed port with Chloraprep x 30 seconds. Accessed with Lewis needle and good blood return noted. Flushed with 10 cc NS. Secured with Tegaderm. Pt given IV contrast during Ct and tolerated well. Port flushed with 10 cc NS and then 5 cc Heparin. Lewis needle removed intact.
== END 2025-02-02 07:17 | disposition home or self-care (01) ==
LOC: LAB 07:17
PROVIDERS: PCP Family Medicine; Visit Provider Family Medicine
DX: R10.11 Right upper quadrant pain (principal); R91.8 Other nonspecific abnormal finding of lung field; K57.90 Diverticulosis of intestine, part unspecified, without perforation or abscess without bleeding
CPT/HCPCS: 36415; 74177; 82565; J1642; Q9967

== ENCOUNTER 2025-02-07 08:12 | Outpatient (OUT) | payer MEDICARE, SELFPAY ==
--- OUTSIDE RECORDS SUMMARY | 2025-02-07 08:27 | XMS_ITS | CCD ---
Author Organization [facility] Care Team Providers Care General Neurologist Name Role Phone ELTAHAWY, EHAB A Admitting Unavailable ELTAHAWY, EHAB A Attending Unavailable DEMETRIUS COOPER Referring Unavailable DEMETRIUS COOPER Primary Care Unavailable Param Cosme Attending Provider Demetrius Cooper Primary Care Provider Param Cosme Attending Provider Demetrius Cooper Primary Care Provider Leti Garcia Unavailable MG L[place] Primary Care Physician KAT Westfall Attending Provider MD Mg [place] Primary Care Provider KAT Westfall Attending Provider [phone] MD Mg [place] Primary Care Provider MD Erwin Salazar Attending Provider Erwin Salazar Unavailable MARCE Hardy Attending Provider [phone] KAT Westfall Other Provider Demetrius Cooper Primary Care Physician Griselda Pennington Unavailable ALANNA HARDY Admitting Unavailable ALANNA HARDY Attending Unavailable LITA, DR MG Omalley Primary Care Unavailable MITCHELL, DR ERWIN Bell Consulting Unavailable ALANNA HARDY [...] NADERER, DR MG Omalley Primary Care Unavailable MITCHELL, DR ERWIN Bell Consulting Unavailable ELTAHAWY, DR [...] Unavailable MD Demetrius Cooper Primary Care Provider [phone] DAISHA Brunson Gisele Attending Provider [phone] Clarissa Corado MD Unavailable [phone] Demetrius Cooper MD Primary Care Provider Flori GARZA, [facility] A. Unavailable [phone] MD Demetrius Cooper Primary Care Provider MD Luc Ham Jr Attending Provider UnaLuc French MD Unavailable Demetrius Cooper MD Primary Care Provider LUC HAM Referring Unavaila ble DEMETRIUS COOPER Primary Care Unavailable VAISHALI PRINGLE Attending Unavailable Unavailable Primary Care Provider UnavailDemetrius Davila MD Primary Care Provider Demetrius Cooper MD Primary Care Provider Ramin CASON, Talib Faustin Attending Provider Mary Schneider MD Referring Provider Demetrius Cooper MD Primary Care Provider [phone] Mary Schneider MD Referring Provider Dennis Gray MD Attending Provider Matteo Melo MD Attending Provider Demetrius Cooper MD Primary Care Provider Debora Wild APRN Attending Provider Mary Schneider MD Referring Provider Dennis Gray MD Attending Provider Mary Schneider MD Referring Provider Talib Faustin MD Attending Provider [phone] Demetrius Cooper Admitting Unavailable Demetrius Cooper Attending [...] Care Provider Matteo Melo MD Attending Provider [phone] Debora Wild APRN Attending Provider Dennis Gray MD Attending Provider Maru Ma DO Attending Provider Mary Schneider MD Referring Provider Talib Faustin MD Attending Provider [phone] Dennis Gray MD Attending Provider Pepito Galicia DO Attending Provider Dennis Gray MD Attending Provider Dennis Gray MD Attending Provider Mary Schneider MD Referring Provider Dennis Gray MD Attending Provider Mary Schneider MD Referring Provider [phone] Ramin CASNO, Talib Faustin Attending Provider Louie Marrero DO Emergency Provider [phone] Jaiden Nance MD Admit Provider Jaiden Nance MD Attending Provider Martha CASON, Yash Other Provider Zeke Brennan MD Attending Provider Demetrius Cooper MD Primary Care Provider Mary Schneider MD Referring Provider Talib Faustin MD Attending Provider Maru Hayes MD Emergency Provider Clarissa Corado MD Unavailable Demetrius Miller MD Primary Care Provider Matteo Melo MD Attending Provider Mary Schneider MD Referring Provider Talib Faustin MD Attending Provider [phone] Demetrius Cooper Attending Unavailable Talib Faustin Attending [...] Attending Provider Veena Adkins DO Attending Provider Talib Faustin MD Attending Provider Mary Schneider MD Referring Provider Dennis Gray MD Attending Provider Inez Henderson Attending Unavaila ble Demetrius Cooper Attending Unavailable Demetrius Cooper Attending Unavailable Demetrius Cooper Attending Unavailable Demetruis Cooper Attending Unavailable Demetrius Cooper Attending Unavailable [...] Unavailable Demetrius Cooper MD Primary Care Provider [phone] Debora Wild APRN Attending Provider Debora Wild APRN Other Provider Becky Crouch APRN Attending Provider Mary Schneider MD Referring Provider MARY SCHNEIDER Attending Unavailable MARY SCHNEIDER Referring [...] sources) Desonide Drug Allergy 0 [facility] Repository (1 source) Niacin Drug Allergy 0 [facility] (20 sources) Adhesive agent; Translations: [adhesive] Drug allergy 4 [facility] (20 sources) Niacin; Translations: [niacin] Drug Allergy 9 hives, Itching (finding), Itching, Unknown [facility] [place] (20 sources) Adhesive bandage; Translations: [Adhesive Bandage] Allergy to substance Eruption of skin (disorder) [facility] [place] (5 sources) Niacin Drug Allergy [facility] Other (2 sources) Niaspan Starter Pack Drug allergy (disorder) 8 [facility] Repository (15 sources) Adhesive Tape-Silicones; Translations: [ADHESIVE TAPE-SILICONES] Drug Allergy 9 Rash [facility] (20 sources) Niacin Drug Allergy 9 Itching, Unknown [facility] (20 sources) Wound Dressing Adhesive Drug Allergy 3 Unknown [facility] (4 sources) Niacin; Translations: [Niaspan ER] Drug Allergy [facility] Repository (2 sources) Niacin Drug Allergy 5 [facility] Repository Medications Current Medications Medication Drug Class(es) Dates Sig (Normalized) Sig (Original) acetaminophen 325 mg / butalbital 50 mg / caffeine 40 mg oral capsule (20 sources) Barbiturate, Central Nervous System Stimulant, Methylxanthine Start: 11-29-2023 take 1 capsule by mouth every four hours for headache Esgic 325 mg-50 mg-40 mg oral capsule 1 cap(s), Oral, q4hr for headache, 60 cap(s), Refill(s) 1, [facility] #[id number], 160, cm, 11/29/23 10:29:00 EDT, Height/Length Dosing, 78.5, kg, 11/29/23 10:29:00 EDT, Weight Dosing Start Date: 11/29/23 Status: Ordered Quantity: 60.0 Unit: cap(s) Repeat number: 2 Start: 12-15-2022 End: 10-11-2024 take 1 tablet by mouth every four hours as needed lzdjpsmkem-rsjfudqdpeack-zgiy 50-325-40 mg tablet Take 1 tablet by [...] MOUTH EVERY 6 HOURS, [facility]), 163, cm, 11/04/22 15:03:00 EDT, Height/Length Dosing, 76, kg, 11/04/22 15:03:00 EDT, Weight Dosing Start Date: 11/09/22 Status: Ordered Quantity: 17.0 Unit: g Repeat number: 1 Start: 11-09-2022 Albuterol (Eqv -ProAir HFA) 90 mcg/inh inhalation aerosol See Instructions, 17 gm, Refill(s) 6, USE 2 INHALATIONS BY MOUTH EVERY 6 HOURS, [facility] ([facility]), 163, cm, 11/04/22 15:03:00 EDT, Height/Length Dosing, 76, kg, 11/04/22 15:03:00 EDT, Weight Dosing Start Date: 11/09/22 Status: Ordered {1 (Ascorbic Acid 7540 MG / POLYETHYLENE GLYCOL 3350 28892 MG / Potassium Chloride 1200 MG / Sodium Ascorbate 15408 MG / Sodium Chloride 3200 MG Powder for Oral Solution) / 1 (POLYETHYLENE GLYCOL 3350 859225 MG / Potassium Chloride 1000 MG / Sodium Chlori (5 sources) Osmotic Laxative, Vitamin C Start: 12-15-2022 Plenvu oral powder for reconstitution See Instructions, 1 EA, Refill(s) 0, Prior to colonoscopy., [facility] #[id number], 163, cm, 12/15/22 12:03:00 EDT, Height/Length Dosing, [...] procedure, # 10 cap(s), Refills(s) 0, Pharmacy: [facility] #[id number], 167, cm, 04/27/22 8:46:00 EST, Height/Length Dosing, [...] 0, one scoop BID 90 day supply, [facility] #[id number], 162, cm, 08/30/23 10:00:00 EDT, Height/Length Dosing, 78.4, kg, 08/30/23 10:00:00 EDT, Weight Dosing Start Date: 09/06/23 Status: Ordered Start: 05-25-2023 End: 08-23-2023 take 4 g by mouth once daily Questran 4 g/9 g oral [place] 4 gm, Oral, Daily, X 90 day(s), # 90 packet(s), Refills(s) 0, Pharmacy: [facility] #[id number], 163, cm, 05/25/23 12:33:00 EST, Height/Length Dosing, [...] Intraprocedure Fish Oils (7 sources) Start: 11-04-2022 [place]-3 Fish O il Oral, Daily, Refills(s) 0, Prophylaxis Start Date: 11/04/22 Status: Ordered Start: 11-04-2022 [place]-3 Fish O il Oral, Daily, Refills(s) 0 Start Date: 11/04/22 Status: Ordered fluticasone 0.05 mg/inh Nasal [facility] (1 source) Start: 04-24-2020 fluticasone 0. 05 mg/inh Nasal [facility] Daily, Refill(s) 0 Start Date: 04/24/20 Status: [...] hyperglycemia, without long-term current use of insulin ([facility]) TAKE 1 TABLET BY MOUTH TWICE [...] hyperglycemia, without long-term current use of insulin ([facility]) TAKE 1 TABLET BY MOUTH TWICE DAILY [...] as directed for 6 days September, Active [facility] [place]6 sources) Start: 11-08-2023 [facility] [place] Transdermal Therapeutics up to four times per day: Meloxicam 0.5%/ Doxepin 3%/ Amantidine 3%/Dextromethorphan 2%/ Lidocaine 2% Start Date: 11/08/23 Status: Ordered Repeat number: 1 Start: 11-08-2023 [facility] [place] Transdermal Therapeutics up to four [...] 0, Prophylaxis Start Date: 04/24/20 Status: Ordered [place] 3 (5 sources) [place] 3 Active omega-3 acid ethyl esters (chcf) [...] Pantoprazole Sod ium Active polyethylene glycol 3350 02376 mg powder for oral solution (7 sources) Osmotic Laxative Start: 09-20-2024 Potassium Chloride (9 sources) Start: 08-30-2024 take 1 tablet by mouth twice daily Potassium Chloride (Wsp-Osdv-Iym M20) 20 mEq oral tablet, extended release [...] 8:40am Start: 11-08-[address] [facility] once daily at bedtime Tylenol PM Oral, Once a day (at bedtime), Refill(s) 0, 250mg- 2 tabs at HS Start Date: 11/08/23 Status: Ordered take 25-500 mg by mo [facility] once as needed diphenhydrAMINE-acetaminophen (Tylenol PM) [...] Corticosteroid Start: 01-18-2024 fluticasone Nasal 0.05 mg/inh [place] See Instructions, 16 gm, Refill(s) 0, USE [...] (F LONASE) 50 mcg/actuation nasal spray 1 Campus. 08/24/2022 Active Start: 08-24-2022 take 1 spray(s) nasa l route twice daily Flonase 0.05 mg/inh [facility] 1 spray(s), Nasal, BID, 16 gram, Refill(s) 0, each nostril, [facility] ([facility] ), 167.6, cm, 08/24/22 8:10:00 [...] for 30 Active Comment on above: 1 Campus. irbesartan 300 mg oral tablet (20 sources) [...] 2024 1:00am July 26, 2024 8:43am nystatin [id number] unt oral tablet (20 sources) Polyene Antifungal Start: 08-17-2024 End: 11-23-2024 take 1 tablet by mouth four times daily Nystatin 500,000 unit tablet Discontinued [id number] UNIT PO Four times daily 40 10 September 14, 2024 9:24am November 23, 2024 10:01am Start: 08-02-2024 End: 08-20-2024 Nystatin 100,000 unit/mL alisia pension Discontinued [id number] UNIT PO Four times daily 224 August 02, 2024 12:00am August 20, 2024 6:07pm administer 1/2 of dose in each side of the mouth Nystatin 100,000 unit/mL suspension (8 sources) Start: 08-02-2024 End: 08-20-2024 Nystatin 100,000 unit/mL suspension Discontinued [id number] UNIT PO Four times daily 224 August 02, 2024 12:00am August 20, 2024 6:07pm administer 1/2 of dose in each side of the mouth Start: 08-02-2024 Nystatin 100,0 00 unit/mL suspension Active [id number] UNIT PO Four times daily 224 August [...] above: Take 10 mg by mouth. sennosides, chcf 8.6 mg oral tablet (6 sources) Start: [...] Coronary arteriosclerosis; Translations: [Atherosclerotic heart disease of [place] coronary artery without angina pectoris] Onset: 9 [...] Chronic Comment on above: noted in [place]20/2024 [facility] [place] page 5. 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 added per OP [...] encounter status 02-25-2023 Unclassified (4 sources) A [facility] screening has identified you as FRAIL or [...] Four Ways to Beat the Frailty Risk [email or web address]-[email or web address]-zgsg-ways-to- khzg-nym-xkp ilty-risk 08-21-2024 Unclassified (1 source) Mild pulmonary [...] Range Facility Office Visiton 12-05-2024 Follow-up visit [id number] [address] 1940 M Date Provider Department Center 12/05/2024 [facility]ACE[facility] ERNANDEZ C[facility] Family History Problem Relation Age of Onset Coronary artery disease Mother Kidney disease Mother Heart failure Mother Family Status - Relation Status Age at Mother Father Level of Service:44990 [place] OFFICE/OUTPATIENT ESTABLISHED LOW MDM 20 MIN Normal [facility] Ambulatory Visit Summaryon 0 11-21-2024 Ambulatory [...] Film) fluticasone nasal (fluticasone Nasal 0.05 mg/inh [place]) furosemide (furosemide 20 mg Tab) irbesartan (irbesartan [...] fluticasone nasal (fluticasone Nasal 0.05 mg/ inh [place]) See instructions USE 1 SPRAY IN BOTH [...] to opioid therapy 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 Normal [facility] Medicine Office/Clini c Noteon 11-21-2024 Family [...] of clutter to prevent tripping and/or falling. [place] Advance Directives reviewed, present at home. Encouraged [...] healthy weight. (more content not included)... Normal [facility] Comment on above: Result Comment: Elec tronically Signed By: MARICRUZ TREVINO CNP\.br\Date and Time Signed: 11/21/24 16:03 EDT\.br\Electronically Co-Signed By: Monse Puckett\.br\Date and Time Co-Signed: 11/21/24 14:59 EDT Alanine aminotransferase [En zymatic activity/volume] in Serum or PlasmaOrdered By: Elif Carroll on 11-13-2024 ALT [Catalytic activity/Vol] 14 U/L Normal 7-52 [facility] Comment on above: Performed By: #### M G, SCAN CBC, CMP #### [facility] [address] Albumin [Mass/volume] in Ser um or Plasma by Bromocresol green (BCG) dye binding methoOrdered By: Elif Carroll on 11-13-2024 Albumin BCG dye [Mass/Vol] 4.2 g/dL 3.5-5.7 [facility] Alkaline phosphatase [Enzyma tic activity/volume] in Serum or PlasmaOrdered By: Elif Carroll on 11-13-2024 ALP [Catalytic activity/Vol] 80 U/L Normal 34-104 [facility] Comment on above: Performed By: #### M G, SCAN CBC, CMP #### [facility] [address] Aspartate aminotransferase [ Enzymatic activity/volume] in Serum or PlasmaOrdered By: Elif Carroll on 11-13-2024 AST [Catalytic activity/Vol] 15 U/L Normal 13-39 [facility] Comment on above: Performed By: #### M G, SCAN CBC, CMP #### [facility] [address] [place] [address] [place] Basophils [#/volume] in Bloo d by Automated countOrdered By: Elif Carroll on 11-13-2024 Basophils (Bld) [#/Vol] 0.0 10*3/uL Normal 0.0-0.2 [facility] Comment on above: Performed By: #### M G, SCAN CBC, CMP #### [facility] [address] [place] [address] [place] Basophils/100 leukocytes in Blood by Automated countOrdered By: Elif Carroll on 11-13-2024 Basophils/100 WBC (Bld) 0.5 % Normal . [facility] Comment on above: Performed By: #### M G, SCAN CBC, CMP #### [facility] [address] [place] [address] [place] Bilirubin.total [Mass/volume ] in Serum or PlasmaOrdered By: Elif Carroll on 11-13-2024 Bilirubin [Mass/Vol] 0.4 mg/dL Normal 0.3-1.0 [facility] Comment on above: Performed By: #### M G, SCAN CBC, CMP #### [facility] [address] Calcium [Mass/volume] in Ser um or PlasmaOrdered By: Elif Carroll on 11-13-2024 Calcium [Mass/Vol] 9.3 mg/dL Normal 8.6-10.3 [facility] Comment on above: Performed By: #### M G, SCAN CBC, CMP #### [facility] [address] Capillary blood glucose juan urement by glucometer (mass/volume)Ordered By: Talib Faustin on 11-13-2024 Glucose [Mass/Vol] 114 mg/dL Normal [facility] Comment on above: Random Glucose Refer ence Range is dependent on time and content of last meal. Glucose of more than 200 mg/dL in a nonstressed, ambulatory subject supports the diagnosis of Diabetes Mellitus. Result Comment: [place] Glucose Reference Range is dependent on time and content of last meal. Glucose of more than 200 mg/dL in a nonstressed, ambulatory subject supports the diagnosis of Diabetes Mellitus. PERFORMED BY: [place] [address] PATHOLOGIST SERVICES HOST AD ROSENBAUM M.D. Performed By: #### G LULS #### Point of Care testing , Carbon dioxide, total [Moles /volume] in Serum or PlasmaOrdered By: Elif Carroll on 11-13-2024 CO2 [Moles/Vol] 26.6 mmol/L Normal 21.0-31.0 [facility] Comment on above: Performed By: #### M G, SCAN CBC, CMP #### [facility] [address] Chloride [Moles/volume] in S stephanie or PlasmaOrdered By: Elif Carroll on 11-13-2024 Chloride [Moles/Vol] 104 mmol/L Normal 98-107 [facility] Comment on above: Performed By: #### M G, SCAN CBC, CMP #### [facility] [address] Comprehensive Metabolic Pane obdulio 11-13-2024 Albumin [Mass/Vol] 4.2 g/dL Normal 3.5-5.7 [facility] Comment on above: Performed By: #### M G, SCAN CBC, CMP #### [facility] [address] Creatinine Clr Calc Pharmacy 60.92 Normal [facility] Comment on above: Performed By: #### M G, SCAN CBC, CMP #### [facility] [address] [place] [address] [place] GFR/1.73 sq M.predicted MDRD (S/P/Bld) [Vol rate/Area] mL/min/{1.73_m2} Normal [facility] Comment on above: Performed By: #### M G, SCAN CBC, CMP #### [address] Creatinine [Mass/volume] in Serum or PlasmaOrdered By: Elif Carroll on 11-13-2024 Creatinine [Mass/Vol] 0.80 mg/dL Normal 0.70-1.30 [facility] Comment on above: Performed By: #### M G, SCAN CBC, CMP #### [place] [address] [place] Eosinophils [#/volume] in Bl ood by Automated countOrdered By: Elif Carroll on 11-13-2024 Eosinophils (Bld) [#/Vol] 0.2 10*3/uL Normal 0.0-0.45 [facility] Comment on above: Performed By: #### M G, SCAN CBC, CMP #### [facility] [address] [place] [address] [place] Eosinophils/100 leukocytes i n Blood by Automated countOrdered By: Elif Carroll on 11-13-2024 Eosinophils/100 WBC (Bld) 2.9 % Normal . [facility] Comment on above: Performed By: #### M G, SCAN CBC, CMP #### [place] [address] [place] Erythrocyte distribution wid th [Ratio] by Automated countOrdered By: Elif Carroll on 11-13-2024 Erythrocyte distribution width (RBC) [Ratio] 14.7 % Normal 12.0-14.8 [facility] Comment on above: Performed By: #### M G, SCAN CBC, CMP #### [facility] [address] Erythrocyte morphology findi ng [Identifier] in BloodOrdered By: Elif Carroll on 11-13-2024 RBC morphology finding Nom (Bld) Normal Normal Normal [facility] Comment on above: Performed By: #### M G, SCAN CBC, CMP #### [facility] [address] Erythrocytes [#/volume] in B lood by Automated countOrdered By: Elif Carroll on 11-13-2024 RBC (Bld) [#/Vol] 4.11 10*6/uL Normal 3.90-5.60 [facility] Comment on above: Performed By: #### M G, SCAN CBC, CMP #### [facility] [address] [place] [address] [place] Glucose [Mass/volume] in Ser um or PlasmaOrdered By: Elif Carroll on 11-13-2024 Glucose [Mass/Vol] 108 mg/dL High 70-100 [facility] Comment on above: ADA recommended refe rence rangeRandom Glucose Reference Range is dependent on time and content of last meal. Glucose of more than 200 mg/dL in a nonstressed, ambulatory subject supports the diagnosis of Diabetes Mellitus. Result Comment: [place] om Glucose Reference Range is dependent on time and content of last meal. Glucose of more than 200 mg/dL in a nonstressed, ambulatory subject supports the diagnosis of Diabetes Mellitus. ADA recommended reference range Performed By: #### M G, SCAN CBC, CMP #### [facility] [address] [place] [address] [place] Hematocrit [Volume Fraction] of Blood by Automated countOrdered By: Elif Carroll on 11-13-2024 Hematocrit (Bld) [Volume fraction] 38.5 % Low 38.8-50.0 [facility] Comment on above: Performed By: #### M G, SCAN CBC, CMP #### [facility] [address] Hemoglobin [Mass/volume] in BloodOrdered By: Elif Carroll on 11-13-2024 Hemoglobin (Bld) [Mass/Vol] 12.8 g/dL Low 13.0-17.0 [facility] Comment on above: Performed By: #### M G, SCAN CBC, CMP #### [address] Leukocytes [#/volume] correc suzy for nucleated erythrocytes in Blood by Automated counOrdered By: Elif Carroll on 11-13-2024 WBC corrected for nucl RBC Auto (Bld) [#/Vol] 8.5 10*3/uL 4.1-10.5 [facility] Leukocytes [#/volume] in Blo od by Automated countOrdered By: Elif Carroll on 11-13-2024 WBC (Bld) [#/Vol] 8.5 10*3/uL Normal 4.1-10.5 [facility] Comment on above: Performed By: #### M G, SCAN CBC, CMP #### [address] Lymphocytes [#/volume] in Bl ood by Automated countOrdered By: Elif Carroll on 11-13-2024 Lymphocytes (Bld) [#/Vol] 1.9 10*3/uL Normal 1.00-4.8 [facility] Comment on above: Performed By: #### M G, SCAN CBC, CMP #### [facility] [address] [place] [address] [place] Lymphocytes/100 leukocytes i n Blood by Automated countOrdered By: Elif Carroll on 11-13-2024 Lymphocytes/100 WBC (Bld) 22.1 % Normal . [facility] Comment on above: Performed By: #### M G, SCAN CBC, CMP #### [place] [address] [place] MCH [Entitic mass] by Automa suzy countOrdered By: Elif Carroll on 11-13-2024 MCH (RBC) [Entitic mass] 31.1 pg Normal 27.5-35.2 [facility] Comment on above: Performed By: #### M G, SCAN CBC, CMP #### [facility] [address] MCHC Auto (RBC) [Mass/Vol]Or dered By: Elif Carroll on 11-13-2024 MCHC (RBC) [Mass/Vol] 33.2 g/dL 32.5-35.6 [facility] MCV [Entitic volume] by Auto mated countOrdered By: Elif Carroll on 11-13-2024 MCV (RBC) [Entitic vol] 93.7 fL Normal 83.5-101 [facility] Comment on above: Performed By: #### M G, SCAN CBC, CMP #### [address] Magnesium [Mass/volume] in S stephanie or PlasmaOrdered By: Elif Carroll on 11-13-2024 Magnesium [Mass/Vol] 2.1 mg/dL Normal 1.9-2.7 [facility] Comment on above: Result Comment: PERF ORMED BY: [place] [address] PATHOLOGIST SERVICES HOST AD ROSENBAUM M.D. Performed By: #### M G, SCAN CBC, CMP #### [place] [address] [place] Monocytes [#/volume] in Bloo d by Automated countOrdered By: Elif Carroll on 11-13-2024 Monocytes (Bld) [#/Vol] 0.8 10*3/uL Normal 0.0-0.8 [facility] Comment on above: Performed By: #### M G, SCAN CBC, CMP #### [facility] [address] [place] [address] [place] Monocytes/100 leukocytes in Blood by Automated countOrdered By: Elif Carroll on 11-13-2024 Monocytes/100 WBC (Bld) 9.2 % Normal . [facility] Comment on above: Performed By: #### M G, SCAN CBC, CMP #### [facility] [address] [place] [address] [place] Neutrophils [#/volume] in Bl ood by Automated countOrdered By: Elif Carroll on 11-13-2024 Neutrophils (Bld) [#/Vol] 5.6 10*3/uL Normal 1.8-7.7 [facility] Comment on above: Performed By: #### M G, SCAN CBC, CMP #### [facility] [address] [place] [address] [place] Neutrophils/100 leukocytes i n Blood by Automated countOrdered By: Elif Carroll on 11-13-2024 Neutrophils/100 WBC (Bld) 65.3 % Normal . [facility] Comment on above: Performed By: #### M G, SCAN CBC, CMP #### [facility] [address] No Panel InformationOrdered By: Elif Carroll on 11-13-2024 Estimated GFR (CKD-EPI) > 60.0 mL/Min [facility] Creatinine Clearance (Chem 60.92 [facility] Nucleated erythrocytes [Pres ence] in Blood by Automated countOrdered By: Elif Carroll on 11-13-2024 Nucleated RBC Auto Ql (Bld) 0.2 /100{WBC} 0-0.5 [facility] PET tumor subq tx strat sb-m ton 11-13-2024 PET tumor subq tx strat sb-mt [facility] [place] [address] Nuclear Medicine Report Signed Patient: Jeremie Bennett MR#: [id number] 669 : 1940 Acct:[id number] Age/Sex: 84 / M ADM Date: 11/23/24 Loc: XT Room: Type: [facility] RCR Attending Dr: Talib Faustin MD Copies [...] Jr., D.OAidan 11/13/2024 3:50 PM Dictation Location: [place] [address] Transcribed By: [facility] 11/13/24 1550 Dictated By: Mario Urias Jr, DO 11/13/24 1539 Signed By: 11/13/24 1550 Normal [facility] Platelet adequacy [Presence] in Blood by Light microscopyOrdered By: Elif Carroll on 11-13-2024 Platelets LM Ql (Bld) Normal Normal [facility] Platelet mean volume [Entiti c volume] in Blood by Automated countOrdered By: Elif Carroll on 11-13-2024 Platelet mean volume (Bld) [Entitic vol] 8.4 fL Normal 6.6-10.1 [facility] Comment on above: Performed By: #### M G, SCAN CBC, CMP #### [facility] [address] Platelet morphology finding [Identifier] in BloodOrdered By: Elif Carroll on 11-13-2024 Platelet morphology finding Nom (Bld) Normal Normal [facility] Platelets [#/volume] in Bloo d by Automated countOrdered By: Elif Carroll on 11-13-2024 Platelets (Bld) [#/Vol] 223 10*3/uL Normal 150-450 [facility] Comment on above: Performed By: #### M G, SCAN CBC, CMP #### [facility] [address] [place] [address] [place] Potassium [Moles/volume] in Serum or PlasmaOrdered By: Elif Carroll on 11-13-2024 Potassium [Moles/Vol] 4.2 mmol/L Normal 3.5-5.1 [facility] Comment on above: Performed By: #### M G, SCAN CBC, CMP #### [address] Protein [Mass/volume] in Ser um or PlasmaOrdered By: Elif Carroll on 11-13-2024 Protein [Mass/Vol] 7.3 g/dL Normal 6.4-8.9 [facility] Comment on above: Performed By: #### M G, SCAN CBC, CMP #### [address] Scan and CBCon 11-13-2024 Mean Corpuscular HGB Conc 33.2 g/dL Normal 32.5-35.6 [facility] Comment on above: Performed By: #### M G, SCAN CBC, CMP #### [address] NRBC% 0.2 /100{WBC} Normal 0-0.5 [facility] Comment on above: Performed By: #### M G, SCAN CBC, CMP #### [address] Platelet Estimate Normal Normal Normal [facility] Comment on above: Performed By: #### M G, SCAN CBC, CMP #### [address] Platelet Morphology Normal Normal Normal [facility] Comment on above: Result Comment: PERF ORMED BY: [place] [address] PATHOLOGIST SERVICES HOST AD ROSENBAUM M.D. Performed By: #### M G, SCAN CBC, CMP #### [address] White Blood Count 8.5 [CFU]/mL Normal 4.1-10.5 [facility] Comment on above: Performed By: #### M G, SCAN CBC, CMP #### [facility] [address] [place] [address] Serum globulin measurement b y calculation (mass/volume)Ordered By: Elif Carroll on 11-13-2024 Globulin (S) [Mass/Vol] 3.1 g/dL [facility] Comment on above: Performed By: #### M G, SCAN CBC, CMP #### [facility] [address] [place] [address] Serum or plasma albumin/glob ulin mass ratioOrdered By: Elif Carroll on 11-13-2024 Albumin/Globulin [Mass ratio] 1.4 {ratio} [facility] Comment on above: Performed By: #### M G, SCAN CBC, CMP #### [address] Serum or plasma anion gap de terminationOrdered By: Elif Carroll on 11-13-2024 Anion gap [Moles/Vol] 10.6 mmol/L Normal 6.0-15.0 [facility] Comment on above: Performed By: #### M G, SCAN CBC, CMP #### [address] Sodium [Moles/volume] in Ser um or PlasmaOrdered By: Elif Carroll on 11-13-2024 Sodium [Moles/Vol] 137 mmol/L Normal 136-145 [facility] Comment on above: Performed By: #### M G, SCAN CBC, CMP #### [facility] [address] [place] [address] Urea nitrogen [Mass/volume] in Serum or PlasmaOrdered By: Elif Carroll on 11-13-2024 Urea nitrogen [Mass/Vol] 29 mg/dL High 7-25 [facility] Comment on above: Performed By: #### M G, SCAN CBC, CMP #### [address] Ambulatory Visit Summaryon 0 2024 Ambulatory [...] Film) fluticasone nasal (fluticasone Nasal 0.05 mg/inh [place]) furosemide (furosemide 20 mg Tab) irbesartan (irbesartan [...] Appointments Wednesday 2:30 PM EDT With: Where: [address] [address]- Wednesday 1:20 PM EDT With: Hermes CASON, Demetrius Rosa Where: [address] [phone]- Medications What How Much When Instructions Unchanged nystatin (nystatin 100,000 units/ mL Oral Susp) 4 Milliliter By Mouth 4 times a day Pickup at [facility] #[id number] Unchanged albuterol (Albuterol (Eqv-ProAir HFA) 90 mcg/ [...] fluticasone nasal (fluticasone Nasal 0.05 mg/ inh [place]) See instructions USE 1 SPRAY IN BOTH [...] CAPSULE BY (more content not included)... Normal [facility] Family Medicine Office/Clini c Noteon 2024 Family [...] QID, # 112 mL, Refills(s) 1, [id number], 160, cm, 10/30/24 17:38:00 EDT, Height/Length Dosing, [...] to opioid therapy Coronary artery disease involving [place] coronary artery of [place] heart without angina pectoris Diabetic autonomic neuropathy [...] patch(es), Topical, q72hr fluticasone Nasal 0.05 mg/inh [place], See Instructions furosemide 20 mg Tab, 20 mg= 1 tab(s), Oral, Daily irbesartan 300 mg Tab, 300 mg= 1 tab(s), Oral, Daily isosorbide mononitrate, 30 mg, Oral, qAM latanoprost Opth 0.005% Janee metformin 500 mg ER T (more content not included)... Normal [facility] [...] Film) fluticasone nasal (fluticasone Nasal 0.05 mg/inh [place]) furosemide (furosemide 20 mg Tab) irbesartan (irbesartan [...] Appointments Wednesday 2:30 PM EDT With: Where: [address] [id number]- Wednesday 3:20 PM EDT With: Hermes CASON, Demetrius Rosa Where: [address] [phone]- Medications What How Much When Instructions Unchanged [...] fluticasone nasal (fluticasone Nasal 0.05 mg/ inh [place]) See instructions USE 1 SPRAY IN BOTH [...] to opioid therapy Coronary artery disease involving [place] coronary artery of [place] heart without angina pectoris Diabetic autonomic neuropathy associated with type 2 diabetes mellitus Diverticulosis FH: stomach can (more content not included)... Normal [facility] Ambulatory Visit Summary Ambulatory Visit Summary JEREMIE [...] Film) fluticasone nasal (fluticasone Nasal 0.05 mg/inh [place]) furosemide (furosemide 20 mg Tab) irbesartan (irbesartan [...] Appointments Wednesday 2:30 PM EDT With: Where: [address] [address]- Wednesday 3:20 PM EDT With: Hermes CASON, Demetrius Rosa Where: [address] [phone]- Medications What How Much When Instructions Unchanged [...] fluticasone nasal (fluticasone Nasal 0.05 mg/ inh [place]) See instructions USE 1 SPRAY IN BOTH [...] to opioid therapy Coronary artery disease involving [place] coronary artery of [place] heart without angina pectoris Diabetic autonomic neuropathy associated with type 2 diabetes mellitus Diverticulosis FH: stomach cancer Former smoker GERD with apnea Gla (more content not included)... Normal [facility] Medicine Office/Clini c Noteon 10-12-2024 Family [...] to opioid therapy Coronary artery disease involving [place] coronary artery of [place] heart without angina pectoris Diabetic autonomic neuropathy [...] habits Procedure/Surgical (more content not included)... Normal [facility] Comment on above: Result Comment: Elec tronically Signed By: Hermes CASON, Demetrius Rosa\.br\Date and Time Signed: 10/12/24 15:08 EDT Capillary blood glucose juan urement by glucometer (mass/volume)Ordered By: Veena Adkins on 10-03-2024 Glucose [Mass/Vol] 103 mg/dL Normal [facility] Comment on above: Random Glucose Refer ence Range is dependent on time and content of last meal. Glucose of more than 200 mg/dL in a nonstressed, ambulatory subject supports the diagnosis of Diabetes Mellitus. Result Comment: [place] Glucose Reference Range is dependent on time and content of last meal. Glucose of more than 200 mg/dL in a nonstressed, ambulatory subject supports the diagnosis of Diabetes Mellitus. Performed By: #### G LULS #### Point of Care testing , GLUCOSE POCT GLUCOMETERSon 0 10-03-2024 COMMEMT1 Glu2: Cleaned Meter [facility] Glucose [Mass/Vol] 103 mg/dL [facility] Comment on above: Random Glucose Refer ence Range is dependent on time and content of last meal. Glucose of more than 200 mg/dL in a nonstressed, ambulatory subject supports the diagnosis of Diabetes Mellitus. [facility] Glucose Poct Glucometerson 0 10-03-2024 Commemt1 Glu2: Cleaned Meter Normal [facility] Comment on above: Result Comment: PERF ORMED BY: [facility] [address] [place] [address] PATHOLOGIST SERVICES HOST HEBER SHANNON M.D. Performed By: #### G RAMIRO #### Point of Care testing , No Panel InformationOrdered By: Veena Adkins on 10-03-2024 Bedside Glucose Comment Glu2: cleaned meter [facility] Family Medicine Office/Clini c Noteon 09-28-2024 Family Medicine Office/Clinic Note Family Medicine Office/Clinic Note Chief Complaint ER follow up Abdominal pain and difficulty swallowing HPI Staff 2 week follow up to RUQ pain. Liver US ordered @ [facility]. Instructed to get done if pain worsens. Has since then gone [place] [facility] [place] CC: abdominal pain & constipation States [...] day(s), # 140 mL, Refills(s) 0, Pharmacy: [facility] #[id number], 160, cm, 09/28/24 14:41:00 EDT, Height/Length Dosing, [...] oral thrush. I prescribed Nystatin in a lyygt-[id number]-dzomyei method to effectively address the thrush symptoms [...] to opioid therapy Coronary artery disease involving [place] coronary artery of [place] heart without angina pectoris Diabetic autonomic neuropathy associated with type 2 diabetes mellitus Diverticulo (more content not included)... Normal [facility] Comment on above: Result Comment: Elec tronically Signed By: eHrmes CASON, Demetrius Rosa\.br\Date and Time Signed: 09/28/24 15:12 EDT Alanine aminotransferase [En zymatic activity/volume] in Serum or PlasmaOrdered By: Maru Hayes on 09-20-2024 ALT [Catalytic activity/Vol] Alanine aminotransferase [Enzymatic activity/volume] in Serum or Plasma [facility] ALT [Catalytic activity/Vol] 9 U/L Normal [facility] Comment on above: Performed By: #### M G, SCAN CBC, CMP #### [facility] [address] [place] [address] Albumin [Mass/volume] in Ser um or Plasma by Bromocresol green (BCG) dye binding methoOrdered By: Maru Hayes on 09-20-2024 Albumin BCG dye [Mass/Vol] Albumin [Mass/volume] in Serum or Plasma by Bromocresol green (BCG) dye binding metho 3.5-5.7 [facility] Albumin BCG dye [Mass/Vol] 3.5 g/dL 3.5-5.7 [facility] Alkaline phosphatase [Enzyma tic activity/volume] in Serum or PlasmaOrdered By: Maru Hayes on 09-20-2024 ALP [Catalytic activity/Vol] Alkaline phosphatase [Enzymatic activity/volume] in Serum or Plasma 34-104 [facility] ALP [Catalytic activity/Vol] 81 U/L Normal [address] [facility] Comment on above: Performed By: #### M G, SCAN CBC, CMP #### [facility] [address] Appearance of UrineOrdered B y: Maru Hayes on 09-20-2024 Appearance (U) Urine appearance Clear [facility] Appearance (U) Clear Normal Clear [facility] Comment on above: Order Comment: Name Collection Type:: Clean-Voided Midstream Performed By: #### U A #### [address] Aspartate aminotransferase [ Enzymatic activity/volume] in Serum or PlasmaOrdered By: Maru Hayes on 09-20-2024 AST [Catalytic activity/Vol] Aspartate aminotransferase [Enzymatic activity/volume] in Serum or Plasma 1339 [facility] AST [Catalytic activity/Vol] 14 U/L Normal 39 [facility] Comment on above: Performed By: #### M G, SCAN CBC, CMP #### [facility] [address] [place] [id number] [facility] Basic Metabolic Panelon Creatinine Clr Calc Pharmacy 59.79 Normal [facility] Comment on above: Performed By: #### M G, SCAN CBC, CMP #### [facility] [address] [place] [id number] [facility] GFR/1.73 sq M.predicted MDRD (S/P/Bld) [Vol rate/Area] mL/min/{1.73_m2} Normal [facility] Comment on above: Performed By: #### M G, SCAN CBC, CMP #### [facility] [address] Basophils Auto (Bld) [#/Vol] Ordered By: Maru Hayes on 09-20-2024 Basophils (Bld) [#/Vol] Automated basophil count 0.0-0.2 [facility] Basophils [#/volume] in Bloo d by Automated countOrdered By: Maru Hayes on 09-20-2024 Basophils (Bld) [#/Vol] 0.1 10*3/uL Normal 0.0-0.2 [facility] Comment on above: Result Comment: PERF ORMED BY: [facility] [address] [place] [address] PATHOLOGIST SERVICES HOST HEBER SHANNON M.D. Performed By: #### M G, SCAN CBC, CMP #### [facility] [address] Basophils/100 WBC Auto (Bld) Ordered By: Maru Hayes on 09-20-2024 Basophils/100 WBC (Bld) Automated basophil % . [facility] Basophils/100 leukocytes in Blood by Automated countOrdered By: Maru Hayes on 09-20-2024 Basophils/100 WBC (Bld) 1.2 % Normal . [facility] Comment on above: Performed By: #### M G, SCAN CBC, CMP #### [facility] [address] Bilirubin Test strip Ql (U)O rdered By: Maru Hayes on 09-20-2024 Bilirubin Ql (U) Bilirubin.total [Presence] in Urine by Test strip Negative [facility] Bilirubin Ql (U) Negative Negative [facility] Bilirubin.direct [Mass/volum e] in Serum or PlasmaOrdered By: Maru Hayes on 09-20-2024 Bilirubin.direct [Mass/Vol] Bilirubin.direct [Mass/volume] in Serum or Plasma 0.03-0.18 [facility] Bilirubin.direct [Mass/Vol] 0.10 mg/dL 0.03-0.18 [facility] Bilirubin.total [Mass/volume ] in Serum or PlasmaOrdered By: Maru Hayes on 09-20-2024 Bilirubin [Mass/Vol] Bilirubin.total [Mass/volume] in Serum or Plasma 0.3-1.0 [facility] Bilirubin [Mass/Vol] 0.5 mg/dL Normal 0.3-1.0 [facility] Comment on above: Performed By: #### M G, SCAN CBC, CMP #### [facility] [address] abdomen pelvis w conon CT abdomen pelvis w con [facility] Main [place] [address] [place] [address] CT Scan Report Signed Patient: Jeremie Bennett MR#: [id number] 669 : 1940 Acct:[id number] Age/Sex: 83 / M ADM Date: 09/20/24 Loc: ER Room: Type: [facility] ER Attending Dr: Copies to: Maru Hayes [...] Gordon M.D. 09/20/2024 8:03 PM Dictation Location: [place] [address] Transcribed By: [facility] 09/20/242002 Dictated By: Rafi Gordon II, MD 09/20/241947 Signed By: 09/20/242002 Normal [facility] Calcium [Mass/volume] in Ser um or PlasmaOrdered By: Maru Hayes on 09-20-2024 Calcium [Mass/Vol] Calcium [Mass/volume ] in Serum or Plasma 8.6-10.3 [facility] Calcium [Mass/Vol] 9.5 mg/dL Normal 8.6-10.3 [facility] Comment on above: Performed By: #### M G, SCAN CBC, CMP #### [facility] [address] [place] [address] [place] Carbon dioxide, total [Moles /volume] in Serum or PlasmaOrdered By: Maru Hayes on 09-20-2024 CO2 [Moles/Vol] Carbon dioxide, tota l [Moles/volume] in Serum or Plasma 21.0-31.0 [facility] CO2 [Moles/Vol] 26.8 mmol/L Normal 21.0-31.0 [facility] Comment on above: Performed By: #### M G, SCAN CBC, CMP #### [facility] [address] [place] [id number] [place] Chloride [Moles/volume] in S stephanie or PlasmaOrdered By: Maru Hayes on 09-20-2024 Chloride [Moles/Vol] Chloride [Moles/vol ume] in Serum or Plasma 98-107 [facility] Chloride [Moles/Vol] 104 mmol/L Normal 98-107 [facility] Comment on above: Performed By: #### M G, SCAN CBC, CMP #### [facility] [address] [place] [address] [place] Color Auto (U)Ordered By: Ronald Hayes on 09-20-2024 Color (U) Color of Urine by Auto Yellow Fi [facility] Color of Urine by AutoOrdere d By: Maru Hayes on 09-20-2024 Color (U) Light-yellow Normal Yellow [facility] Comment on above: Order Comment: Name Collection Type:: Clean-Voided Midstream Performed By: #### U A #### [address] Complete Blood Count Auto Di ffon 09-20-2024 Mean Corpuscular HGB Conc 33.3 g/dL Normal 32.5-35.6 [facility] Comment on above: Performed By: #### M G, SCAN CBC, CMP #### [facility] [address] [place] [address] [place] Monocytes/100 WBC (Bld) 22.62 % High 0.00-20.00 [facility] Comment on above: Result Comment: For adults in ED, MDW > 20.0 may be associated with a higher risk of sepsis during the first 12 hrs of hospital admission Performed By: #### M G, SCAN CBC, CMP #### [facility] [address] [place] [address] [place] NRBC% 0.0 /100{WBC} Normal 0-0.5 [facility] Comment on above: Performed By: #### M G, SCAN CBC, CMP #### [facility] [address] [place] [address] [place] Creatinine [Mass/volume] in Serum or PlasmaOrdered By: Maru Hayes on 09-20-2024 Creatinine [Mass/Vol] Creatinine [Mass/v olume] in Serum or Plasma 0.70-1.30 [facility] Creatinine [Mass/Vol] 0.70 mg/dL Normal 0.70-1.30 [facility] Comment on above: Performed By: #### M G, SCAN CBC, CMP #### [facility] [address] ECG 12 lead ECGon 09-20-2024 ECG 12 lead ECG [facility] [place] [address] [place] [address] Electrocardiograph Report Signed Patient: Jeremie Bennett MR#: [id number] 669 : 1940 Acct:[id number] Age/Sex: 83 / M ADM Date: 09/20/24 Loc: ER Room: Type: [facility] ER Attending Dr: Ordering Provider: Maru [...] Abnormal ECG Confirmed by Maru Hayes MD ([id number]) on 09/20/2024 11:00:16 PM Referred By: Electronically Signed By: Maru Hayes MD Transcribed By: [facility] Signed By Maru Hayes MD 12/08 Normal [facility] Eosinophils Auto (Bld) [#/Vo l]Ordered By: Maru Hayes on 09-20-2024 Eosinophils (Bld) [#/Vol] Automated eosinophil count 0.0-0.45 [facility] Eosinophils [#/volume] in Bl ood by Automated countOrdered By: Maru Hayes on 09-20-2024 Eosinophils (Bld) [#/Vol] 0.3 10*3/uL Normal 0.0-0.45 [facility] Comment on above: Performed By: #### M G, SCAN CBC, CMP #### [facility] [address] Eosinophils/100 WBC Auto (Bl d)Ordered By: Maru Hayes on 09-20-2024 Eosinophils/100 WBC (Bld) Automated eosinophil % . [facility] Eosinophils/100 leukocytes i n Blood by Automated countOrdered By: Maru Hayes on 09-20-2024 Eosinophils/100 WBC (Bld) 2.5 % Normal . [facility] Comment on above: Performed By: #### M G, SCAN CBC, CMP #### [facility] [address] Erythrocyte distribution wid th Auto (RBC) [Ratio]Ordered By: Maru Hayes on 09-20-2024 Erythrocyte distribution width (RBC) [Ratio] Erythrocyte distribution width [Ratio] by Automated count High 12.0-14.8 [facility] Erythrocyte distribution wid th [Ratio] by Automated countOrdered By: Maru Hayes on 09-20-2024 Erythrocyte distribution width (RBC) [Ratio] 15.9 % High 12.0-14.8 [facility] Comment on above: Performed By: #### M G, SCAN CBC, CMP #### [facility] [address] Erythrocytes [#/volume] in B lood by Automated countOrdered By: Maru Hayes on 09-20-2024 RBC (Bld) [#/Vol] 3.85 10*6/uL Low 3.90-5.60 [facility] Comment on above: Performed By: #### M G, SCAN CBC, CMP #### [facility] [address] Globulin Calc (S) [Mass/Vol] Ordered By: Maru Hayes on 09-20-2024 Globulin (S) [Mass/Vol] Serum globulin measurement by calculation (mass/volume) [facility] Glucose [Mass/volume] in Ser um or PlasmaOrdered By: Maru Hayes on 09-20-2024 Glucose [Mass/Vol] Glucose [Mass/volume ] in Serum or Plasma High 70-100 [facility] Comment on above: ADA recommended refe rence rangeRandom Glucose Reference Range is dependent on time and content of last meal. Glucose of more than 200 mg/dL in a nonstressed, ambulatory subject supports the diagnosis of Diabetes Mellitus. Glucose [Mass/Vol] 105 mg/dL High 70-100 [facility] Comment on above: ADA recommended refe rence rangeRandom Glucose Reference Range is dependent on time and content of last meal. Glucose of more than 200 mg/dL in a nonstressed, ambulatory subject supports the diagnosis of Diabetes Mellitus. Result Comment: [place] om Glucose Reference Range is dependent on time and content of last meal. Glucose of more than 200 mg/dL in a nonstressed, ambulatory subject supports the diagnosis of Diabetes Mellitus. ADA recommended reference range Performed By: #### M G, SCAN CBC, CMP #### [facility] [address] Glucose [Mass/volume] in Uri ne by Test stripOrdered By: Maru Hayes on 09-20-2024 Glucose Test strip (U) [Mass/Vol] Glucose [Mass/volume] in Urine by Test strip Normal [facility] Glucose Test strip (U) [Mass/Vol] Normal mg/dL Normal [facility] Hematocrit Auto (Bld) [Volum e fraction]Ordered By: Maru Haeys on 09-20-2024 Hematocrit (Bld) [Volume fraction] Hematocrit [Volume Fraction] of Blood by Automated count Low 38.8-50.0 [facility] Hematocrit [Volume Fraction] of Blood by Automated countOrdered By: Maru Hayes on 09-20-2024 Hematocrit (Bld) [Volume fraction] 35.3 % Low 38.8-50.0 [facility] Comment on above: Performed By: #### M G, SCAN CBC, CMP #### [facility] [address] Hemoglobin Test strip Ql (U) Ordered By: Maru Hayes on 09-20-2024 Hemoglobin Ql (U) Hemoglobin [Presence ] in Urine by Test strip Negative [facility] Hemoglobin Ql (U) Negative Negative [facility] Hemoglobin [Mass/volume] in BloodOrdered By: Maru Hayes on 09-20-2024 Hemoglobin (Bld) [Mass/Vol] Hemoglobin [Mass/volume] in Blood Low 13.0-17.0 [facility] Hemoglobin (Bld) [Mass/Vol] 11.8 g/dL Low 13.0-17.0 [facility] Comment on above: Performed By: #### M G, SCAN CBC, CMP #### [facility] [address] Hepatic Panelon 09-20-2024 Albumin [Mass/Vol] 3.5 g/dL Normal 3.5-5.7 [facility] Comment on above: Performed By: #### M G, SCAN CBC, CMP #### [facility] [address] Bilirubin,Indirect 0.4 mg/dL Normal [facility] Comment on above: Performed By: #### M G, SCAN CBC, CMP #### [facility] [address] Bilirubin.indirect [Mass/Vol] 0.10 mg/dL Normal 0.03-0.18 [facility] Comment on above: Performed By: #### M G, SCAN CBC, CMP #### [facility] [address] Ketones Test strip Ql (U)Ord ered By: Maru Hayes on 09-20-2024 Ketones Ql (U) Ketones [Presence] i n Urine by Test strip Negative [facility] Ketones [Presence] in Urine by Test stripOrdered By: Maru Hayes on 09-20-2024 Ketones Ql (U) Negative Normal Negative [facility] Comment on above: Order Comment: Name Collection Type:: Clean-Voided Midstream Performed By: #### U A #### [address] Leukocyte esterase [Presence ] in Urine by Test stripOrdered By: Maru Hayes on 09-20-2024 Leukocyte esterase Test strip Ql (U) Leukocyte esterase [Presence] in Urine by Test strip Negative [facility] Leukocyte esterase Test strip Ql (U) Negative Normal Negative [facility] Comment on above: Order Comment: Name Collection Type:: Clean-Voided Midstream Performed By: #### U A #### [address] Leukocytes [#/volume] correc suzy for nucleated erythrocytes in Blood by Automated counOrdered By: Maru Hayes on 09-20-2024 WBC corrected for nucl RBC Auto (Bld) [#/Vol] Leukocytes [#/volume] corrected for nucleated erythrocytes in Blood by Automated coun High 4.1-10.5 [facility] WBC corrected for nucl RBC Auto (Bld) [#/Vol] 11.2 10*3/uL High 4.1-10.5 [facility] Leukocytes [#/volume] in Blo od by Automated countOrdered By: Maru Hayes on 09-20-2024 WBC (Bld) [#/Vol] 11.2 10*3/uL High 4.1-10.5 [facility] Comment on above: Performed By: #### M G, SCAN CBC, CMP #### [address] Lipase [Enzymatic activity/v olume] in Serum or PlasmaOrdered By: Maru Hayes on 09-20-2024 Lipase [Catalytic activity/Vol] Lipase [Enzymatic activity/volume] in Serum or Plasma 11.0-82.0 [facility] Lipase [Catalytic activity/Vol] 34.0 U/L Normal 11.0-82.0 [facility] Comment on above: Result Comment: PERF ORMED BY: [place] [address] PATHOLOGIST SERVICES HOST HEBER SHANNON M.D. Performed By: #### M G, SCAN CBC, CMP #### [facility] [address] [place] [address] [place] Lymphocytes Auto (Bld) [#/Vo l]Ordered By: Maru Hayes on 09-20-2024 Lymphocytes (Bld) [#/Vol] Lymphocytes [#/volume] in Blood by Automated count 1.00-4.8 [facility] Lymphocytes [#/volume] in Bl ood by Automated countOrdered By: Maru Hayes on 09-20-2024 Lymphocytes (Bld) [#/Vol] 2.8 10*3/uL Normal 1.00-4.8 [facility] Comment on above: Performed By: #### M G, SCAN CBC, CMP #### [facility] [address] Lymphocytes/100 WBC Auto (Bl d)Ordered By: Maru Hayes on 09-20-2024 Lymphocytes/100 WBC (Bld) Lymphocytes/100 leukocytes in Blood by Automated count . [facility] Lymphocytes/100 leukocytes i n Blood by Automated countOrdered By: Maru Hayes on 09-20-2024 Lymphocytes/100 WBC (Bld) 24.8 % Normal . [facility] Comment on above: Performed By: #### M G, SCAN CBC, CMP #### [facility] [address] MCH Auto (RBC) [Entitic mass ]Ordered By: Maru Hayes on 09-20-2024 MCH (RBC) [Entitic mass] MCH [Entitic mass] by Automated count 27.5-35.2 [facility] MCH [Entitic mass] by Automa suzy countOrdered By: Maru Hayes on 09-20-2024 MCH (RBC) [Entitic mass] 30.5 pg Normal 27.5-35.2 [facility] Comment on above: Performed By: #### M G, SCAN CBC, CMP #### [facility] [address] [place] [address] MCHC Auto (RBC) [Mass/Vol]Or dered By: Maru Hayes on 09-20-2024 MCHC (RBC) [Mass/Vol] MCHC [Mass/volume] by Automated count 32.5-35.6 [facility] MCHC (RBC) [Mass/Vol] 33.3 g/dL 32.5-35.6 [facility] MCV Auto (RBC) [Entitic vol] Ordered By: Maru Hayes on 09-20-2024 MCV (RBC) [Entitic vol] MCV [Entitic volume] by Automated count 83.5-101 [facility] MCV [Entitic volume] by Auto mated countOrdered By: Maru Hayes on 09-20-2024 MCV (RBC) [Entitic vol] 91.7 fL Normal 83.5-101 [facility] Comment on above: Performed By: #### M G, SCAN CBC, CMP #### [facility] [address] [place] [address] [place] Monocyte distribution width [Entitic volume] in Blood by AutomatedOrdered By: Maru Hayes on 09-20-2024 Monocyte distribution width Auto (Bld) [Entitic vol] Monocyte distribution width [Entitic volume] in Blood by Automated High 0.00-20.00 [facility] Comment on above: For adults in ED, MD W > 20.0 may be associated with a higher risk of sepsis during the first 12 hrs of hospital admission Monocyte distribution width Auto (Bld) [Entitic vol] 22.62 % High 0.00-20.00 [facility] Comment on above: For adults in ED, MD W > 20.0 may be associated with a higher risk of sepsis during the first 12 hrs of hospital admission Monocytes Auto (Bld) [#/Vol] Ordered By: Maru Hayes on 09-20-2024 Monocytes (Bld) [#/Vol] Automated blood monocyte count 0.0-0.8 [facility] Monocytes [#/volume] in Bloo d by Automated countOrdered By: Maru Hayes on 09-20-2024 Monocytes (Bld) [#/Vol] 0.8 10*3/uL Normal 0.0-0.8 [facility] Comment on above: Performed By: #### M G, SCAN CBC, CMP #### [facility] [address] [place] [address] [place] Monocytes/100 WBC Auto (Bld) Ordered By: Maru Hayes on 09-20-2024 Monocytes/100 WBC (Bld) Automated monocyte % . [facility] Monocytes/100 leukocytes in Blood by Automated countOrdered By: Maru Hayes on 09-20-2024 Monocytes/100 WBC (Bld) 7.2 % Normal . [facility] Comment on above: Performed By: #### M G, SCAN CBC, CMP #### [facility] [address] [place] [address] [place] Neutrophils Auto (Bld) [#/Vo l]Ordered By: Maru Hayes on 09-20-2024 Neutrophils (Bld) [#/Vol] Neutrophils [#/volume] in Blood by Automated count 1.8-7.7 [facility] Neutrophils [#/volume] in Bl ood by Automated countOrdered By: Maru Hayes on 09-20-2024 Neutrophils (Bld) [#/Vol] 7.2 10*3/uL Normal 1.8-7.7 [facility] Comment on above: Performed By: #### M G, SCAN CBC, CMP #### [facility] [address] [place] [address] [place] Neutrophils/100 WBC Auto (Bl d)Ordered By: Maru Hayes on 09-20-2024 Neutrophils/100 WBC (Bld) Automated neutrophil % . [facility] Neutrophils/100 leukocytes i n Blood by Automated countOrdered By: Maru Hayes on 09-20-2024 Neutrophils/100 WBC (Bld) 64.3 % Normal . [facility] Comment on above: Performed By: #### M G, SCAN CBC, CMP #### [facility] [address] Nitrite Test strip Ql (U)Ord ered By: Maru Hayes on 09-20-2024 Nitrite Ql (U) Nitrite [Presence] i n Urine by Test strip Negative [facility] Nitrite Ql (U) Negative Negative [facility] No Panel InformationOrdered By: Maru Hayes on 09-20-2024 Estimated GFR (CKD-EPI) > 60.0 mL/Min [facility] Creatinine Clearance (Chem 59.79 [facility] Nucleated erythrocytes [Pres ence] in Blood by Automated countOrdered By: Maru Hayes on 09-20-2024 Nucleated RBC Auto Ql (Bld) Nucleated erythrocytes [Presence] in Blood by Automated count 0-0.5 [facility] Nucleated RBC Auto Ql (Bld) 0.0 /100{WBC} 0-0.5 [facility] Platelet mean volume Auto (B ld) [Entitic vol]Ordered By: Maru Hayes on 09-20-2024 Platelet mean volume (Bld) [Entitic vol] Platelet mean volume [Entitic volume] in Blood by Automated count 6.6-10.1 [facility] Platelet mean volume [Entiti c volume] in Blood by Automated countOrdered By: Maru Hayes on 09-20-2024 Platelet mean volume (Bld) [Entitic vol] 8.3 fL Normal 6.6-10.1 [facility] Comment on above: Performed By: #### M G, SCAN CBC, CMP #### [facility] [address] Platelets Auto (Bld) [#/Vol] Ordered By: Maru Hayes on 09-20-2024 Platelets (Bld) [#/Vol] Platelets [#/volume] in Blood by Automated count 150-450 [facility] Platelets [#/volume] in Bloo d by Automated countOrdered By: Maru Hayes on 09-20-2024 Platelets (Bld) [#/Vol] 226 10*3/uL Normal 150-450 [facility] Comment on above: Performed By: #### M G, SCAN CBC, CMP #### [facility] [address] 09-21-19 [facility] Case Information Case Priority: None Programs: -- Referral Source: Storage Specialist Referral Reason: Care coordination Case Type: Transition [...] to opioid therapy Coronary artery disease involving [place] coronary artery of [place] heart without angina pectoris Diabetic autonomic neuropathy [...] patch(es), Topical, q72hr fluticasone Nasal 0.05 mg/inh [place], See Instructions furosemide 20 mg Tab, 20 [...] 5, but he has not heard from [facility], a message sent to clinical [...] [Moles/v olume] in Serum or Plasma 3.5-5.1 [facility] Potassium [Moles/Vol] 4.0 mmol/L Normal 3.5-5.1 [facility] Comment on above: Performed By: #### M G, SCAN CBC, CMP #### [facility] [address] [place] [address] Protein Test strip (U) [Mass /Vol]Ordered By: Maru Hayes on 09-20-2024 Protein (U) [Mass/Vol] Protein [Mass/vol ume] in Urine by Test strip Negative [facility] Protein (U) [Mass/Vol] Negative Negative [facility] Protein [Mass/volume] in Ser um or PlasmaOrdered By: Maru Hayes on 09-20-2024 Protein [Mass/Vol] Protein [Mass/volume ] in Serum or Plasma 6.4-8.9 [facility] Protein [Mass/Vol] 6.4 g/dL Normal 6.4-8.9 [facility] Comment on above: Performed By: #### M G, SCAN CBC, CMP #### [facility] [address] [place] [address] RBC Auto (Bld) [#/Vol]Ordere d By: Maru Hayes on 09-20-2024 RBC (Bld) [#/Vol] Erythrocytes [#/volu me] in Blood by Automated count Low 3.90-5.60 [facility] Serum globulin measurement b y calculation (mass/volume)Ordered By: Maru Hayes on 09-20-2024 Globulin (S) [Mass/Vol] 2.9 g/dL Normal [facility] Comment on above: Performed By: #### M G, SCAN CBC, CMP #### [facility] [address] [place] [address] Serum or plasma albumin/glob ulin mass ratioOrdered By: Maru Hayes on 09-20-2024 Albumin/Globulin [Mass ratio] Serum or plasma albumin/globulin mass ratio [facility] Albumin/Globulin [Mass ratio] 1.2 {ratio} Normal [facility] Comment on above: Performed By: #### M G, SCAN CBC, CMP #### [facility] [address] [place] [address] Serum or plasma anion gap de terminationOrdered By: Maru Hayes on 09-20-2024 Anion gap [Moles/Vol] Serum or plasma an ion gap determination 6.0-15.0 [facility] Anion gap [Moles/Vol] 10.2 mmol/L Normal 6.0-15.0 [facility] Comment on above: Performed By: #### M G, SCAN CBC, CMP #### [facility] [address] Serum or plasma non-glucuron idated bilirubin measurement (mass/volume)Ordered By: Maru Hayes on 09-20-2024 Bilirubin.indirect [Mass/Vol] Serum or plasma non-glucuronidated bilirubin measurement (mass/volume) [facility] Bilirubin.indirect [Mass/Vol] 0.4 mg/dL [facility] Sodium [Moles/volume] in Ser um or PlasmaOrdered By: Maru Hayes on 09-20-2024 Sodium [Moles/Vol] Sodium [Moles/volume ] in Serum or Plasma 136-145 [facility] Sodium [Moles/Vol] 137 mmol/L Normal 136-145 [facility] Comment on above: Performed By: #### M G, SCAN CBC, CMP #### [facility] [address] Specific gravity Test strip (U) [Rel density]Ordered By: Maru Hayes on 09-20-2024 Specific gravity (U) [Rel density] Specific gravity of Urine by Test strip High 1.001-1.[address] [facility] Specific gravity (U) [Rel density] 1.039 High 1.001-1.[address] [facility] Troponin I High Sensitivityo n 09-20-2024 Troponin I High Sensitivity 7 Normal 0-20 [facility] Comment on above: Result Comment: The Troponin units of report have been changed to meet the Chest Pain Accreditation requirement, element EC5.M1l2. Troponin units are changed from pg/ml to ng/L. Also, the decimal is removed and results are in whole numbers. PERFORMED BY: [facility] [address] [place] [address] PATHOLOGIST SERVICES HOST HEBER SHANNON M.D. Performed By: #### H S TROP #### [facility] [address] [place] [address] [place] Troponin I.cardiac [Mass/vol ume] in Serum or Plasma by Detection limit <= 0.01 ng/Ordered By: Maru Hayes on 09-20-2024 Troponin I.cardiac DL <= 0.01 ng/mL [Mass/Vol] Troponin I.cardiac [Mass/volume] in Serum or Plasma by Detection limit <= 0.01 ng/ 0 [facility] Comment on above: The Troponin units o [...] DL <= 0.01 ng/mL [Mass/Vol] 7 ng/L [facility] Comment on above: The Troponin units o f report have been changed to meet the Chest Pain Accreditation requirement, element EC5.M1l2. Troponin units are changed from pg/ml to ng/L. Also, the decimal is removed and results are in whole numbers. Urea nitrogen [Mass/volume] in Serum or PlasmaOrdered By: Maru Hayes on 09-20-2024 Urea nitrogen [Mass/Vol] Urea nitrogen [Mass/volume] in Serum or Plasma 12-08 [facility] Urea nitrogen [Mass/Vol] 20 mg/dL Normal 12-08 [facility] Comment on above: Performed By: #### M G, SCAN CBC, CMP #### [facility] [address] [place] [address] [place] Urinalysison 09-20-2024 Bilirubin,Urine Negative Normal Negative [facility] Comment on above: Order Comment: Name Collection Type:: Clean-Voided Midstream Performed By: #### U A #### [facility] [address] Glucose Ql (U) Normal Normal Normal [facility] Comment on above: Order Comment: Name Collection Type:: Clean-Voided Midstream Performed By: #### U A #### [place] [address] [place] Nitrite,Urine Negative Normal Negative [facility] Comment on above: Order Comment: Name Collection Type:: Clean-Voided Midstream Performed By: #### U A #### [address] Occult Blood,Urine Negative Normal Negative [facility] Comment on above: Order Comment: Name Collection Type:: Clean-Voided Midstream Result Comment: PERF ORMED BY: [place] [address] PATHOLOGIST SERVICES HOST HEBER SHANNON M.D. Performed By: #### U A #### [address] Protein,Urine Negative Normal Negative [facility] Comment on above: Order Comment: Name Collection Type:: Clean-Voided Midstream Performed By: #### U A #### [address] Specificy [place],Urine 1.039 High 1.001-1.03 0 [facility] Comment on above: Order Comment: Name Collection Type:: Clean-Voided Midstream Performed By: #### U A #### [address] Urobilinogen,Urine Normal Normal Normal [facility] Comment on above: Order Comment: Name Collection Type:: Clean-Voided Midstream Performed By: #### U A #### [place] [address] [place] Urobilinogen Test strip (U) [Mass/Vol]Ordered By: Maru Hayes on 09-20-2024 Urobilinogen (U) [Mass/Vol] Urobilinogen [Mass/volume] in Urine by Test strip Normal [facility] Urobilinogen (U) [Mass/Vol] Normal mg/dL Normal [facility] WBC Auto (Bld) [#/Vol]Ordere d By: Maru Hayes on 09-20-2024 WBC (Bld) [#/Vol] Leukocytes [#/volume ] in Blood by Automated count High 4.1-10.5 [facility] pH Test strip (U)Ordered By: Maru Hayes on 09-20-2024 pH (U) pH of Urine by Test strip 5.0-9.0 [facility] pH of Urine by Test stripOrd ered By: Maru Hayes on 09-20-2024 pH (U) 5.0 [pH] Normal 5.0-9.0 [facility] Comment on above: Order Comment: Name Collection Type:: Clean-Voided Midstream Performed By: #### U A #### [address] Ambulatory Visit Summaryon 0 09-14-2024 Ambulatory [...] Film) fluticasone nasal (fluticasone Nasal 0.05 mg/inh [place]) furosemide (furosemide 20 mg Tab) irbesartan (irbesartan [...] PM EDT With: Demetrius Cooper MD Where: [address] [id number]- Wednesday 2:30 PM EDT With: Where: [address] [address]- Wednesday 3:20 PM EDT With: Demetrius Cooper MD Where: [address] [id number]- Medications What How Much When Instructions Unchanged [...] fluticasone nasal (fluticasone Nasal 0.05 mg/ inh [place]) See instructions USE 1 SPRAY IN BOTH [...] pain Cervic (more content not included)... Normal [facility] Medicine Office/Clini c Noteon 09-14-2024 Family [...] to opioid therapy Coronary artery disease involving [place] coronary artery of [place] heart without angina pectoris Diabetic autonomic neuropathy [...] 07:51 EDT [facility] 09-08-19 [facility] Case Information Case Priority: None Programs: -- Referral Source: Storage Specialist Referral Reason: Care coordination Case Type: Transition [...] to opioid therapy Coronary artery disease involving [place] coronary artery of [place] heart without angina pectoris Diabetic autonomic neuropathy [...] patch(es), Topical, q72hr fluticasone Nasal 0.05 mg/inh [place], See Instructions furosemide 20 mg Tab, 20 [...] mg= 1 tab(s), Oral, Daily Potassium Chloride (Qnf-Cxlv-Hhw M20) 20 mEq oral tablet, extended release [...] magic peggy (more content not included)... Normal [facility] C Urineon 09-01-2024 Bacteria identified Cx Nom (U) Microbiology PROCEDURE: Urine Culture [R1] SOURCE: U Random BODY SITE: COLLECTED DATE/TIME: 08/30/2024 10:11 EDT RECEIVED DATE/TIME: 08/30/2024 18:09 EDT START DATE/TIME: 08/30/2024 18:09 EDT FREE TEXT SOURCE: Yajaira Dunn Jodi L FINAL REPORTS Final Report [] Verified Date/Time: 09/01/2024 10:22 EDT 200 cfu/ml Mixed skin contaminants Performing Locations R1: This test was performed at: [facility], [address] [place] [address], [phone]- , , [facility] Comment on above: Performed By: #### [id number] #### [facility] [address] [place] [id number] Ambulatory Visit Summaryon 0 08-30-2024 Ambulatory Visit [...] Film) fluticasone nasal (fluticasone Nasal 0.05 mg/inh [place]) furosemide (furosemide 20 mg Tab) irbesartan (irbesartan [...] mL oral solution) potassium chloride (Potassium Chloride (Buc-Xpyx-Qvf M20) 20 mEq oral tablet, extended release) [...] Appointments Wednesday 2:30 PM EDT With: Where: [address] [address]- Wednesday 3:20 PM EDT With: Hermes CASON, Demetrius Rosa Where: [address] [address]- Medications What How Much When Instructions Unchanged [...] fluticasone nasal (fluticasone Nasal 0.05 mg/ inh [place]) See instructions USE 1 SPRAY IN BOTH [...] ondansetron (onda (more content not included)... Normal [facility] Family Medicine Office/Clini c Noteon 08-30-2024 Family [...] Urnls Dip Stick Auto w/o Microscopy POC [id number] 2. Urinary hesitancy (R39.11: Hesitancy of micturition) [...] to opioid therapy Coronary artery disease involving [place] coronary artery of [place] heart without angina pectoris Diabetic autonomic neuropathy [...] patch(es), Topical, q72hr fluticasone Nasal 0.05 mg/inh [place], See Instructions furosemide 20 mg Tab, 20 [...] presents today for TCM follow up [place] [facility] [place]: 08/19/24 Symptoms the patient presented [...] TCM Trans care mgmt 7 day disch [id number] 2. Aspiration pneumonia (J69.0: Pneumonitis due to inhalation of food and vomit) Patient improved after antibiotic treatment for aspiration pneumonia. Monitor respiratory status and nutritional challenges affecting swallowing. Ordered: Cardiac Rehab - Ambulatory Referral TCM Trans care mgmt 7 day disch [id number] 3. 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 Plan imaging for therapy assessment within three months. Focus on resolving sore throat impacting nutrition. Ordered: Cardiac Rehab - Ambulatory Referral TCM Trans care mgmt 7 day disch [id number] 4. 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 Schedule appropriate follow-up tests to monitor oncologic treatment outcomes. Ordered: Cardiac Rehab - Ambulatory Referral TCM Trans care mgmt 7 day disch [id number] 5. Immunosuppression (D84.9: Immunodeficiency, unspecified) Continue to see oncology Ordered: Cardiac Rehab - Ambulatory Referral TCM Trans care mgmt 7 day disch [id number] 6. 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 Evaluate non-opioid pain relief methods if feasible. Ordered: TCM Trans care mgmt 7 day disch [id number] 7. Nausea (R11.0: Nausea) NO issues at this time. Ordered: TCM Trans care mgmt 7 day disch [id number] 8. BMI 27.0-27.9,adult (Z68.27: Body mass index [...] feel free to contact me at extension [phone]. Thank you! Bobbi Hall LPN Clinical Station Helper [place] [address] Extension: 1982 [email or web address] From: Demetrius Cooper MD To: Bobbi Hall; Sent: 08/24/2024 11:34:18 EDT Subject: RE: Pre-Visit Planning Caller Name: JEREMIE BENNETT; Caller Number: Jane , M Please add Normal [facility] 08-23-19 [facility] Case Information Case Priority: None Programs: -- Referral Source: Storage Specialist Referral Reason: Care coordination Case Type: Transition Care Management Risk Score: -- Case Status: Enrolled (August 22, 2024) Date Assigned: August 22, 2024 Assigned By: Galileo Tucker Date Enrolled: August 22, 2024 Assigned Primary Personnel: Galileo Tucker Assigned Secondary Personnel: -- Case Physician: Demetrius Cooper MD Ongoing Bloating BMI 29.0-29.9,adult Cervical lymphadenopathy Cervical spondylosis Chronic GERD Coronary artery disease involving [place] coronary artery of [place] heart without angina pectoris Diabetic autonomic neuropathy [...] patch(es), Topical, q72hr fluticasone Nasal 0.05 mg/inh [place], See Instructions furosemide 20 mg Tab, 20 [...] Care Plan Progress Note Ad[place] Date: [place]20/[place] [facility] [place] of Dis[place]: 08/21/24 Follow-up appointment scheduled? yes, Dr. Cooper [facility] f/u 08/24/24 at 0745 Did you understand [...] [Enzymatic activity/volume] in Serum or Plasma 752 [facility] Albumin [Mass/volume] in Ser um or Plasma by Bromocresol green (BCG) dye binding methoOrdered By: Jaiden Nance on 08-21-2024 Albumin BCG dye [Mass/Vol] Albumin [Mass/volume] in Serum or Plasma by Bromocresol green (BCG) dye binding metho Low 3.5-5.7 [facility] Alkaline phosphatase [Enzyma tic activity/volume] in Serum or PlasmaOrdered By: Jaiden Nance on 08-21-2024 ALP [Catalytic activity/Vol] Alkaline phosphatase [Enzymatic activity/volume] in Serum or Plasma 34-104 [facility] Aspartate aminotransferase [ Enzymatic activity/volume] in Serum or PlasmaOrdered By: Jaiden Nance on 08-21-2024 AST [Catalytic activity/Vol] Aspartate aminotransferase [Enzymatic activity/volume] in Serum or Plasma 13-39 [facility] Basophils Auto (Bld) [#/Vol] Ordered By: Jaiden Nance on 08-21-2024 Basophils (Bld) [#/Vol] Automated basophil count 0.0-0.2 [facility] Basophils/100 WBC Auto (Bld) Ordered By: Jaiden Nance on 08-21-2024 Basophils/100 WBC (Bld) Automated basophil % . [facility] Bilirubin.total [Mass/volume ] in Serum or PlasmaOrdered By: Jaiden Nance on 08-21-2024 Bilirubin [Mass/Vol] Bilirubin.total [Mass/volume] in Serum or Plasma 0.3-1.[address] [facility] [address] chest wo conon 08-21-2024 CT chest wo con [facility] Main [place] [address] [place] [address] CT Scan Report Signed Patient: Jeremie Bennett MR#: [id number] : 1940 Acct:[id number] Age/Sex: 83 / M ADM Date: 08/20/24 Loc: Room: [address] [place] [address] Type: ADM IN Attending Dr: Jaiden Nance [...] Christian Melton M.D.08/21/2024 5:58 AM Dictation Location: [place] [address] Transcribed By: [facility] 08/21/24 0558 Dictated By: Christian Melton DO 08/21/24 0555 Signed By: 08/21/2458 Normal [facility] Calcium [Mass/volume] in Ser um or PlasmaOrdered By: Jaiden Nance on 08-21-2024 Calcium [Mass/Vol] Calcium [Mass/volume ] in Serum or Plasma Low 8.6-10.3 [facility] Carbon dioxide, total [Moles /volume] in Serum or PlasmaOrdered By: Jaiden Nance on 08-21-2024 CO2 [Moles/Vol] Carbon dioxide, tota l [Moles/volume] in Serum or Plasma 21.0-31.0 [facility] Chloride [Moles/volume] in S stephanie or PlasmaOrdered By: Jaiden Nance on 08-21-2024 Chloride [Moles/Vol] Chloride [Moles/vol ume] in Serum or Plasma High 98-107 [facility] Complete Blood Count Auto Di ffon 08-21-2024 Basophils (Bld) [#/Vol] 0.0 10*3/uL Normal 0.0-0.2 [facility] Comment on above: Result Comment: PERF ORMED BY: [place] [address] PATHOLOGIST SERVICES HOST HEBER SHANNON M.D. Performed By: #### U A #### [facility] [address] Basophils/100 WBC (Bld) 0.6 % Normal . [facility] Comment on above: Performed By: #### U A #### [facility] [address] Eosinophils (Bld) [#/Vol] 0.1 10*3/uL Normal 0.0-0.45 [facility] Comment on above: Performed By: #### U A #### [address] Eosinophils/100 WBC (Bld) 1.0 % Normal . [facility] Comment on above: Performed By: #### U A #### [address] Erythrocyte distribution width (RBC) [Ratio] 14.8 % Normal 12.0-14.8 [facility] Comment on above: Performed By: #### U A #### [address] Hematocrit (Bld) [Volume fraction] 30.5 % Low 38.8-50.0 [facility] Comment on above: Performed By: #### U A #### [address] Hemoglobin (Bld) [Mass/Vol] 10.4 g/dL Low 13.0-17.0 [facility] Comment on above: Performed By: #### U A #### [address] Lymphocytes (Bld) [#/Vol] 0.6 10*3/uL Low 1.00-4.8 [facility] Comment on above: Performed By: #### U A #### [address] Lymphocytes/100 WBC (Bld) 9.0 % Normal . [facility] Comment on above: Performed By: #### U A #### [address] MCH (RBC) [Entitic mass] 31.3 pg Normal 27.5-35.2 [facility] Comment on above: Performed By: #### U A #### [address] MCV (RBC) [Entitic vol] 91.6 fL Normal 83.5-101 [facility] Comment on above: Performed By: #### U A #### [address] [place] [address] [place] Mean Corpuscular HGB Conc 34.2 g/dL Normal 32.5-35.6 [facility] Comment on above: Performed By: #### U A #### [address] Monocytes (Bld) [#/Vol] 0.8 10*3/uL Normal 0.0-0.8 [facility] Comment on above: Performed By: #### U A #### [address] Monocytes/100 WBC (Bld) 13.6 % Normal . [facility] Comment on above: Performed By: #### U A #### [address] Neutrophils (Bld) [#/Vol] 4.7 10*3/uL Normal 1.8-7.7 [facility] Comment on above: Performed By: #### U A #### [address] Neutrophils/100 WBC (Bld) 75.8 % Normal . [facility] Comment on above: Performed By: #### U A #### [address] NRBC% 0.1 /100{WBC} Normal 0-0.5 [facility] Comment on above: Performed By: #### U A #### [address] Platelet mean volume (Bld) [Entitic vol] 8.2 fL Normal 6.6-10.1 [facility] Comment on above: Performed By: #### U A #### [place] [address] [place] Platelets (Bld) [#/Vol] 190 10*3/uL Normal 150-450 [facility] Comment on above: Performed By: #### U A #### [address] RBC (Bld) [#/Vol] 3.33 10*6/uL Low 3.90-5.60 [facility] Comment on above: Performed By: #### U A #### [address] WBC (Bld) [#/Vol] 6.2 10*3/uL Normal 4.1-10.5 [facility] Comment on above: Performed By: #### U A #### [address] Comprehensive Metabolic Pane obdulio 08-21-2024 Albumin [Mass/Vol] 2.9 g/dL Low 3.5-5.7 [facility] Comment on above: Performed By: #### U A #### [address] Albumin/Globulin [Mass ratio] 1.2 {ratio} Normal [facility] Comment on above: Performed By: #### U A #### [address] ALP [Catalytic activity/Vol] 52 U/L Normal 34-104 [facility] Comment on above: Performed By: #### U A #### [address] ALT [Catalytic activity/Vol] 14 U/L Normal 7-52 [facility] Comment on above: Performed By: #### U A #### [address] Anion gap [Moles/Vol] 9.1 mmol/L Normal 6.0-15.0 [facility] Comment on above: Performed By: #### U A #### [address] AST [Catalytic activity/Vol] 15 U/L Normal 13-39 [facility] Comment on above: Performed By: #### U A #### [address] Bilirubin [Mass/Vol] 0.6 mg/dL Normal 0.3-1.0 [facility] Comment on above: Performed By: #### U A #### [address] Calcium [Mass/Vol] 8.2 mg/dL Low 8.6-10.3 [facility] Comment on above: Performed By: #### U A #### [address] Chloride [Moles/Vol] 108 mmol/L High 98-107 [facility] Comment on above: Performed By: #### U A #### [address] CO2 [Moles/Vol] 24.2 mmol/L Normal 21.0-31.0 [facility] Comment on above: Performed By: #### U A #### [address] Creatinine [Mass/Vol] 0.75 mg/dL Normal 0.70-1.30 [facility] Comment on above: Performed By: #### U A #### [address] Creatinine Clr Calc Pharmacy 59.79 Normal [facility] Comment on above: Performed By: #### U A #### [address] GFR/1.73 sq M.predicted MDRD (S/P/Bld) [Vol rate/Area] mL/min/{1.73_m2} Normal [facility] Comment on above: Performed By: #### U A #### [address] Globulin (S) [Mass/Vol] 2.4 g/dL Normal [facility] Comment on above: Performed By: #### U A #### [address] Glucose [Mass/Vol] 94 mg/dL Normal 70-100 [facility] Comment on above: Result Comment: [place] Glucose Reference Range is dependent on time and content of last meal. Glucose of more than 200 mg/dL in a nonstressed, ambulatory subject supports the diagnosis of Diabetes Mellitus. ADA recommended reference range Performed By: #### U A #### [facility] [address] [place] [address] [place] Potassium [Moles/Vol] 3.3 mmol/L Low 3.5-5.1 [facility] Comment on above: Performed By: #### U A #### [facility] [address] [place] [address] [place] Protein [Mass/Vol] 5.3 g/dL Low 6.4-8.9 [facility] Comment on above: Performed By: #### U A #### [facility] [address] Sodium [Moles/Vol] 138 mmol/L Normal 136-145 [facility] Comment on above: Performed By: #### U A #### [facility] [address] Urea nitrogen [Mass/Vol] 10 mg/dL Normal 7-25 [facility] Comment on above: Performed By: #### U A #### [facility] [address] [place] [address] [place] Creatinine [Mass/volume] in Serum or PlasmaOrdered By: Jaiden Nance on 08-21-2024 Creatinine [Mass/Vol] Creatinine [Mass/v olume] in Serum or Plasma 0.70-1.30 [facility] Eosinophils Auto (Bld) [#/Vo l]Ordered By: Jaiden Nance on 08-21-2024 Eosinophils (Bld) [#/Vol] Automated eosinophil count 0.0-0.45 [facility] Eosinophils/100 WBC Auto (Bl d)Ordered By: Jaiden Nance on 08-21-2024 Eosinophils/100 WBC (Bld) Automated eosinophil % . [facility] Erythrocyte distribution wid th Auto (RBC) [Ratio]Ordered By: Jaiden Nance on 08-21-2024 Erythrocyte distribution width (RBC) [Ratio] Erythrocyte distribution width [Ratio] by Automated count 12.0-14.8 [facility] Globulin Calc (S) [Mass/Vol] Ordered By: Jaiden Nance on 08-21-2024 Globulin (S) [Mass/Vol] Serum globulin measurement by calculation (mass/volume) [facility] Glucose [Mass/volume] in Ser um or PlasmaOrdered By: Jaiden Nance on 08-21-2024 Glucose [Mass/Vol] Glucose [Mass/volume ] in Serum or Plasma 70-100 [facility] Comment on above: ADA recommended refe rence rangeRandom Glucose Reference Range is dependent on time and content of last meal. Glucose of more than 200 mg/dL in a nonstressed, ambulatory subject supports the diagnosis of Diabetes Mellitus. Hematocrit Auto (Bld) [Volum e fraction]Ordered By: Jaiden Nance on 08-21-2024 Hematocrit (Bld) [Volume fraction] Hematocrit [Volume Fraction] of Blood by Automated count Low 38.8-50.0 [facility] Hemoglobin [Mass/volume] in BloodOrdered By: Jaiden Nance on 08-21-2024 Hemoglobin (Bld) [Mass/Vol] Hemoglobin [Mass/volume] in Blood Low 13.0-17.0 [facility] Leukocytes [#/volume] correc suzy for nucleated erythrocytes in Blood by Automated counOrdered By: Jaiden Nance on 08-21-2024 WBC corrected for nucl RBC Auto (Bld) [#/Vol] Leukocytes [#/volume] corrected for nucleated erythrocytes in Blood by Automated coun 4.1-10.5 [facility] Lymphocytes Auto (Bld) [#/Vo l]Ordered By: Jaiden Nance on 08-21-2024 Lymphocytes (Bld) [#/Vol] Lymphocytes [#/volume] in Blood by Automated count Low 1.00-4.8 [facility] Lymphocytes/100 WBC Auto (Bl d)Ordered By: Jaiden Nance on 08-21-2024 Lymphocytes/100 WBC (Bld) Lymphocytes/100 leukocytes in Blood by Automated count . [facility] MCH Auto (RBC) [Entitic mass ]Ordered By: Jaiden Nance on 08-21-2024 MCH (RBC) [Entitic mass] MCH [Entitic mass] by Automated count 27.5-35.2 [facility] MCHC Auto (RBC) [Mass/Vol]Or dered By: Jaiden Nance on 08-21-2024 MCHC (RBC) [Mass/Vol] MCHC [Mass/volume] by Automated count 32.5-35.6 [facility] MCV Auto (RBC) [Entitic vol] Ordered By: Jaiden Nance on 08-21-2024 MCV (RBC) [Entitic vol] MCV [Entitic volume] by Automated count 83.5-101 [facility] Magnesiumon 08-21-2024 Magnesium [Mass/Vol] 1.8 mg/dL Low 1.9-2.7 [facility] Comment on above: Result Comment: PERF ORMED BY: [place] [address] PATHOLOGIST SERVICES HOST HEBER SHANNON M.D. Performed By: #### U A #### [address] Magnesium [Mass/volume] in S stephanie or PlasmaOrdered By: Jaiden Nance on 08-21-2024 Magnesium [Mass/Vol] Magnesium [Mass/vol ume] in Serum or Plasma Low 1.9-2.7 [facility] Monocytes Auto (Bld) [#/Vol] Ordered By: Jaiden Nance on 08-21-2024 Monocytes (Bld) [#/Vol] Automated blood monocyte count 0.0-0.8 [facility] Monocytes/100 WBC Auto (Bld) Ordered By: Jiaden Nance on 08-21-2024 Monocytes/100 WBC (Bld) Automated monocyte % . [facility] Neutrophils Auto (Bld) [#/Vo l]Ordered By: Jaiden Nance on 08-21-2024 Neutrophils (Bld) [#/Vol] Neutrophils [#/volume] in Blood by Automated count 1.8-7.7 [facility] Neutrophils/100 WBC Auto (Bl d)Ordered By: Jaiden Nance on 08-21-2024 Neutrophils/100 WBC (Bld) Automated neutrophil % . [facility] No Panel InformationOrdered By: Jaiden Nance on 08-21-2024 Estimated GFR (CKD-EPI) > 60.0 mL/Min [facility] Creatinine Clearance (Chem 59.79 [facility] Nucleated erythrocytes [Pres ence] in Blood by Automated countOrdered By: Jaiden Nance on 08-21-2024 Nucleated RBC Auto Ql (Bld) Nucleated erythrocytes [Presence] in Blood by Automated count 0-0.5 [facility] Platelet mean volume Auto (B ld) [Entitic vol]Ordered By: Jaiden Nance on 08-21-2024 Platelet mean volume (Bld) [Entitic vol] Platelet mean volume [Entitic volume] in Blood by Automated count 6.6-10.1 [facility] Platelets Auto (Bld) [#/Vol] Ordered By: Jaiden Nance on 08-21-2024 Platelets (Bld) [#/Vol] Platelets [#/volume] in Blood by Automated count 150-450 [facility] Potassium [Moles/volume] in Serum or PlasmaOrdered By: Jaiden Nance on 08-21-2024 Potassium [Moles/Vol] Potassium [Moles/v olume] in Serum or Plasma Low 3.5-5.1 [facility] Protein [Mass/volume] in Ser um or PlasmaOrdered By: Jaiden Nance on 08-21-2024 Protein [Mass/Vol] Protein [Mass/volume ] in Serum or Plasma Low 6.4-8.9 [facility] RBC Auto (Bld) [#/Vol]Ordere d By: Jaiden Nance on 08-21-2024 RBC (Bld) [#/Vol] Erythrocytes [#/volu me] in Blood by Automated count Low 3.90-5.60 [facility] Serum or plasma albumin/glob ulin mass ratioOrdered By: Jaiden Nance on 08-21-2024 Albumin/Globulin [Mass ratio] Serum or plasma albumin/globulin mass ratio [facility] Serum or plasma anion gap de terminationOrdered By: Jaiden Nance on 08-21-2024 Anion gap [Moles/Vol] Serum or plasma an ion gap determination 6.0-15.0 [facility] Sodium [Moles/volume] in Ser um or PlasmaOrdered By: Jaiden Nance on 08-21-2024 Sodium [Moles/Vol] Sodium [Moles/volume ] in Serum or Plasma 136-145 [facility] Urea nitrogen [Mass/volume] in Serum or PlasmaOrdered By: Jaiden Nance on 08-21-2024 Urea nitrogen [Mass/Vol] Urea nitrogen [Mass/volume] in Serum or Plasma 7-25 [facility] WBC Auto (Bld) [#/Vol]Ordere d By: Jaiden Nance on 08-21-2024 WBC (Bld) [#/Vol] Leukocytes [#/volume ] in Blood by Automated count 4.1-10.5 [facility] Alanine aminotransferase [En zymatic activity/volume] in Serum or PlasmaOrdered By: Louie Marrero on 08-20-2024 ALT [Catalytic activity/Vol] Alanine aminotransferase [Enzymatic activity/volume] in Serum or Plasma 7-52 [facility] Albumin [Mass/volume] in Ser um or Plasma by Bromocresol green (BCG) dye binding methoOrdered By: Louie Marrero on 08-20-2024 Albumin BCG dye [Mass/Vol] Albumin [Mass/volume] in Serum or Plasma by Bromocresol green (BCG) dye binding metho Low 3.5-5.7 [facility] Alkaline phosphatase [Enzyma tic activity/volume] in Serum or PlasmaOrdered By: Louie Marrero on 08-20-2024 ALP [Catalytic activity/Vol] Alkaline phosphatase [Enzymatic activity/volume] in Serum or Plasma 34-104 [facility] Appearance of UrineOrdered B y: Louie Marrero on 08-20-2024 Appearance (U) Urine appearance Clear [facility] Aspartate aminotransferase [ Enzymatic activity/volume] in Serum or PlasmaOrdered By: Louie Marrero on 08-20-2024 AST [Catalytic activity/Vol] Aspartate aminotransferase [Enzymatic activity/volume] in Serum or Plasma 13-39 [facility] Basophils Auto (Bld) [#/Vol] Ordered By: Louie Marrero on 08-20-2024 Basophils (Bld) [#/Vol] Automated basophil count 0.0-0.2 [facility] Basophils/100 WBC Auto (Bld) Ordered By: Louie Marrero on 08-20-2024 Basophils/100 WBC (Bld) Automated basophil % . [facility] Bilirubin Test strip Ql (U)O rdered By: Louie Marrero on 08-20-2024 Bilirubin Ql (U) Bilirubin.total [Presence] in Urine by Test strip Negative [facility] Bilirubin.total [Mass/volume ] in Serum or PlasmaOrdered By: Louie Marrero on 08-20-2024 Bilirubin [Mass/Vol] Bilirubin.total [Mass/volume] in Serum or Plasma 0.3-1.0 [facility] BioFire Not Detectedon 08-20 BioFire Not Detected Not detected Normal Not Detecte [facility] Comment on above: Result Comment: This is a duplicate RP2.1 COVID (PCR) result to be used for statistical tracking purpose only. PERFORMED BY: [place] [phone] PATHOLOGIST SERVICES H[employer] HEBER SHANNON M.D. Performed By: #### M G, SCAN CBC, CMP #### [facility] [address] [place] [address] [place] Blood Cultureon 08-20-2024 Bacteria identified Cx Nom (Bld) MISSED X1 PT REFUSED TO LET ME TRY AGAIN RN NORRIS KNOWS NO GROWTH 5 DAYS PERFORMED BY: [place] [address] PATHOLOGIST SERVICES H[employer] HEBER SHANNON M.D. Normal [facility] Comment on above: Performed By: #### E SR #### [address] Bacteria identified Cx Nom (Bld) right chest NO GROWTH 5 DAYS PERFORMED BY: [place] [address] PATHOLOGIST SERVICES HOST HEBER SHANNON M.D. Normal [facility] Comment on above: Performed By: #### E SR #### [address] C reactive protein [Mass/vol ume] in Serum or PlasmaOrdered By: Louie Marrero on 08-20-2024 CRP [Mass/Vol] C reactive protein [Mass/volume] in Serum or Plasma High 0.0-0.5 [facility] C-Reactive Proteinon 025 C-Reactive Protein 3.3 mg/dL High 0.0-0.5 [facility] Comment on above: Result Comment: PERF ORMED BY: [place] [address] PATHOLOGIST SERVICES HOST HEBER SHANNON M.D. Performed By: #### E SR #### [address] COVID-19 Detected/Not Detect edOrdered By: Louie Marrero on 08-20-2024 SARS-CoV-2 (COVID-19) RNA MICHELLE+non-probe Ql (Nph) Not detected Not Detecte [facility] Comment on above: This is a duplicate RP2.1 COVID (PCR) result to be used for statistical tracking purpose only. Calcium [Mass/volume] in Ser um or PlasmaOrdered By: Louie Marrero on 08-20-2024 Calcium [Mass/Vol] Calcium [Mass/volume ] in Serum or Plasma Low 8.6-10.3 [facility] Carbon dioxide, total [Moles /volume] in Serum or PlasmaOrdered By: Louie Marrero on 08-20-2024 CO2 [Moles/Vol] Carbon dioxide, tota l [Moles/volume] in Serum or Plasma 21.0-31.0 [facility] Chloride [Moles/volume] in S stephanie or PlasmaOrdered By: Louie Marrero on 08-20-2024 Chloride [Moles/Vol] Chloride [Moles/vol ume] in Serum or Plasma 98-107 [facility] Color Auto (U)Ordered By: Abe Marrero on 08-20-2024 Color (U) Color of Urine by Auto Yellow [facility] Complete Blood Count Auto Di ffon 08-20-2024 Basophils (Bld) [#/Vol] 0.0 10*3/uL Normal 0.0-0.2 [facility] Comment on above: Result Comment: PERF ORMED BY: [place] [id number] PATHOLOGIST SERVICES H[employer] HEBER SHANNON M.D. Performed By: #### U A #### [place] [address] [place] Basophils/100 WBC (Bld) 0.5 % Normal . [facility] Comment on above: Performed By: #### U A #### [address] Eosinophils (Bld) [#/Vol] 0.1 10*3/uL Normal 0.0-0.45 [facility] Comment on above: Performed By: #### U A #### [address] Eosinophils/100 WBC (Bld) 0.7 % Normal . [facility] Comment on above: Performed By: #### U A #### [address] Erythrocyte distribution width (RBC) [Ratio] 14.8 % Normal 12.0-14.8 [facility] Comment on above: Performed By: #### U A #### [address] Hematocrit (Bld) [Volume fraction] 34.2 % Low 38.8-50.0 [facility] Comment on above: Performed By: #### U A #### [address] Hemoglobin (Bld) [Mass/Vol] 11.4 g/dL Low 13.0-17.0 [facility] Comment on above: Performed By: #### U A #### [place] [address] [place] Lymphocytes (Bld) [#/Vol] 0.8 10*3/uL Low 1.00-4.8 [facility] Comment on above: Performed By: #### U A #### [place] [address] [place] Lymphocytes/100 WBC (Bld) 10.5 % Normal . [facility] Comment on above: Performed By: #### U A #### [place] [id number] [place] MCH (RBC) [Entitic mass] 31.0 pg Normal 27.5-35.2 [facility] Comment on above: Performed By: #### U A #### [address] MCV (RBC) [Entitic vol] 92.9 fL Normal 83.5-101 [facility] Comment on above: Performed By: #### U A #### [address] Mean Corpuscular HGB Conc 33.4 g/dL Normal 32.5-35.6 [facility] Comment on above: Performed By: #### U A #### [address] Monocytes (Bld) [#/Vol] 0.8 10*3/uL Normal 0.0-0.8 [facility] Comment on above: Performed By: #### U A #### [address] Monocytes/100 WBC (Bld) 23.19 % High 0.00-20.00 [facility] Comment on above: Result Comment: For adults in ED, MDW > 20.0 may be associated with a higher risk of sepsis during the first 12 hrs of hospital admission Performed By: #### U A #### [address] Monocytes/100 WBC (Bld) 11.3 % Normal . [facility] Comment on above: Performed By: #### U A #### [address] Neutrophils (Bld) [#/Vol] 5.7 10*3/uL Normal 1.8-7.7 [facility] Comment on above: Performed By: #### U A #### [address] Neutrophils/100 WBC (Bld) 77.0 % Normal . [facility] Comment on above: Performed By: #### U A #### [address] NRBC% 0.2 /100{WBC} Normal 0-0.5 [facility] Comment on above: Performed By: #### U A #### [address] Platelet mean volume (Bld) [Entitic vol] 8.1 fL Normal 6.6-10.1 [facility] Comment on above: Performed By: #### U A #### [address] Platelets (Bld) [#/Vol] 234 10*3/uL Normal 150-450 [facility] Comment on above: Performed By: #### U A #### [address] RBC (Bld) [#/Vol] 3.68 10*6/uL Low 3.90-5.60 [facility] Comment on above: Performed By: #### U A #### [address] WBC (Bld) [#/Vol] 7.4 10*3/uL Normal 4.1-10.5 [facility] Comment on above: Performed By: #### U A #### [address] Comprehensive Metabolic Pane obdulio 08-20-2024 Albumin [Mass/Vol] 3.4 g/dL Low 3.5-5.7 [facility] Comment on above: Performed By: #### E SR #### [address] Albumin/Globulin [Mass ratio] 1.4 {ratio} Normal [facility] Comment on above: Performed By: #### E SR #### [address] ALP [Catalytic activity/Vol] 66 U/L Normal 34-104 [facility] Comment on above: Performed By: #### E SR #### [address] ALT [Catalytic activity/Vol] 17 U/L Normal 7-52 [facility] Comment on above: Performed By: #### E SR #### [address] Anion gap [Moles/Vol] 10.3 mmol/L Normal 6.0-15.0 [facility] Comment on above: Performed By: #### E SR #### [address] AST [Catalytic activity/Vol] 18 U/L Normal 13-39 [facility] Comment on above: Performed By: #### E SR #### [address] Bilirubin [Mass/Vol] 0.6 mg/dL Normal 0.3-1.0 [facility] Comment on above: Performed By: #### E SR #### [address] Calcium [Mass/Vol] 8.4 mg/dL Low 8.6-10.3 [facility] Comment on above: Performed By: #### E SR #### [address] Chloride [Moles/Vol] 104 mmol/L Normal 98-107 [facility] Comment on above: Performed By: #### E SR #### [address] CO2 [Moles/Vol] 25.4 mmol/L Normal 21.0-31.0 [facility] Comment on above: Performed By: #### E SR #### [address] Creatinine [Mass/Vol] 0.85 mg/dL Normal 0.70-1.30 [facility] Comment on above: Performed By: #### E SR #### [address] Creatinine Clr Calc Pharmacy 58.71 Normal [facility] Comment on above: Result Comment: PERF ORMED BY: [address] [place] [address] PATHOLOGIST SERVICES H[employer] HEBER SHANNON M.D. Performed By: #### E SR #### [place] [address] [place] GFR/1.73 sq M.predicted MDRD (S/P/Bld) [Vol rate/Area] mL/min/{1.73_m2} Normal [facility] Comment on above: Performed By: #### E SR #### [address] Globulin (S) [Mass/Vol] 2.5 g/dL Normal [facility] Comment on above: Performed By: #### E SR #### [address] Glucose [Mass/Vol] 106 mg/dL High 70-100 [facility] Comment on above: Result Comment: [place] Glucose Reference Range is dependent on time and content of last meal. Glucose of more than 200 mg/dL in a nonstressed, ambulatory subject supports the diagnosis of Diabetes Mellitus. ADA recommended reference range Performed By: #### E SR #### [address] Potassium [Moles/Vol] 3.7 mmol/L Normal 3.5-5.1 [facility] Comment on above: Performed By: #### E SR #### [address] Protein [Mass/Vol] 5.9 g/dL Low 6.4-8.9 [facility] Comment on above: Performed By: #### E SR #### [place] [address] [place] Sodium [Moles/Vol] 136 mmol/L Normal 136-145 [facility] Comment on above: Performed By: #### E SR #### [address] Urea nitrogen [Mass/Vol] 16 mg/dL Normal 7-25 [facility] Comment on above: Performed By: #### E SR #### [address] Creatinine [Mass/volume] in Serum or PlasmaOrdered By: Louie Marrero on 08-20-2024 Creatinine [Mass/Vol] Creatinine [Mass/v olume] in Serum or Plasma 0.70-1.30 [facility] ECG 12 lead ECGon 08-20-2024 ECG 12 lead ECG [facility] Main [place] [address] [place] [address] Electrocardiograph Report Signed Patient: Jeremie Bennett MR#: [id number] : 1940 Acct:[id number] Age/Sex: 83 / M ADM Date: 08/20/24 Loc: ER Room: Type: [facility] ER Attending Dr: Ordering Provider: Louie Marrero [...] ECGs available Confirmed by LOUIE MARRERO DO ([id number]) on 08/20/2024 7:55:25 PM Referred By: Electronically Signed By: LOUIE MARRERO DO Transcribed By: MUS Signed By Louie Marrero DO 08/20 Normal [facility] Eosinophils Auto (Bld) [#/Vo l]Ordered By: Louie Marrero on 08-20-2024 Eosinophils (Bld) [#/Vol] Automated eosinophil count 0.0-0.45 [facility] Eosinophils/100 WBC Auto (Bl d)Ordered By: Louie Marrero on 08-20-2024 Eosinophils/100 WBC (Bld) Automated eosinophil % . [facility] Erythrocyte Sedimentation Ra ciro 08-20-2024 ESR (Bld) [Velocity] 42 mm/h High 0-19 [facility] Comment on above: Result Comment: PERF ORMED BY: [place] [address] PATHOLOGIST SERVICES [employer] HEBER SHANNON M.D. Performed By: #### E #### [address] Erythrocyte distribution wid th Auto (RBC) [Ratio]Ordered By: Louie Marrero on 08-20-2024 Erythrocyte distribution width (RBC) [Ratio] Erythrocyte distribution width [Ratio] by Automated count 12.0-14.8 [facility] Erythrocyte sedimentation ra te by Photometric methodOrdered By: Jaiden Nance on 08-20-2024 ESR Photometric method (Bld) [Velocity] Erythrocyte sedimentation rate by Photometric method High 0-19 [facility] Globulin Calc (S) [Mass/Vol] Ordered By: Louie Marrero on 08-20-2024 Globulin (S) [Mass/Vol] Serum globulin measurement by calculation (mass/volume) [facility] Glucose [Mass/volume] in Ser um or PlasmaOrdered By: Louie Marrero on 08-20-2024 Glucose [Mass/Vol] Glucose [Mass/volume ] in Serum or Plasma High 70-100 [facility] Comment on above: ADA recommended refe [...] [Mass/volume] in Urine by Test strip Normal [facility] Hematocrit Auto (Bld) [Volum e fraction]Ordered By: Louie Marrero on 08-20-2024 Hematocrit (Bld) [Volume fraction] Hematocrit [Volume Fraction] of Blood by Automated count Low 38.8-50.0 [facility] Hemoglobin Test strip Ql (U) Ordered By: Louie Marrero on 08-20-2024 Hemoglobin Ql (U) Hemoglobin [Presence ] in Urine by Test strip Negative [facility] Hemoglobin [Mass/volume] in BloodOrdered By: Louie Marrero 08-20-2024 Hemoglobin (Bld) [Mass/Vol] Hemoglobin [Mass/volume] in Blood Low 13.0-17.0 [facility] INR in Platelet poor plasma by Coagulation assayOrdered By: Louie Marrero on 08-20-2024 INR Coag (PPP) [Relative time] INR in Platelet poor plasma by Coagulation assay [facility] Comment on above: INR Therapeutic Rang e [...] n Urine by Test strip High Negative [facility] Laboratory - Microbiology an d Antimicrobial susceptibilityOrdered By: Louie Marrero on 08-20-2024 Bacteria identified Cx Nom (Bld) NO GROWTH [address] [facility] Bacteria identified Cx Nom (Bld) NO GROWTH [address] [facility] Lactate [Moles/volume] in Se rum or PlasmaOrdered By: Louie Marrero on 08-20-2024 Lactate [Moles/Vol] Lactate [Moles/volum e] in Serum or Plasma 0.5-1.9 [facility] Comment on above: Lactic Acid referenc e range has been updated to 0.5 1.9 mmol/L and the critical range of 2.0 or greater. Lactic Acidon 08-20-2024 Lactate [Moles/Vol] 0.8 mmol/L Normal 0.5-1.9 [facility] Comment on above: Result Comment: Lact ic Acid reference range has been updated to 0.5 ? 1.9 mmol/L and the critical range of 2.0 or greater. PERFORMED BY: [place] [address] PATHOLOGIST [employer] HEBER SHANNON M.D. Performed By: #### U A #### [address] Leukocyte esterase [Presence ] in Urine by Test stripOrdered By: Louie Marrero on 08-20-2024 Leukocyte esterase Test strip Ql (U) Leukocyte esterase [Presence] in Urine by Test strip Negative [facility] Leukocytes [#/volume] correc suzy for nucleated erythrocytes in Blood by Automated counOrdered By: Louie Marrero on 08-20-2024 WBC corrected for nucl RBC Auto (Bld) [#/Vol] Leukocytes [#/volume] corrected for nucleated erythrocytes in Blood by Automated coun 4.1-10.5 [facility] Lymphocytes Auto (Bld) [#/Vo l]Ordered By: Louie Marrero on 08-20-2024 Lymphocytes (Bld) [#/Vol] Lymphocytes [#/volume] in Blood by Automated count Low 1.00-4.8 [facility] Lymphocytes/100 WBC Auto (Bl d)Ordered By: Louie Marrero on 08-20-2024 Lymphocytes/100 WBC (Bld) Lymphocytes/100 leukocytes in Blood by Automated count . [facility] MCH Auto (RBC) [Entitic mass ]Ordered By: Louie Marrero on 08-20-2024 MCH (RBC) [Entitic mass] MCH [Entitic mass] by Automated count 27.5-35.2 [facility] MCHC Auto (RBC) [Mass/Vol]Or dered By: Louie Marrero on 08-20-2024 MCHC (RBC) [Mass/Vol] MCHC [Mass/volume] by Automated count 32.5-35.6 [facility] MCV Auto (RBC) [Entitic vol] Ordered By: Louie Marrero on 08-20-2024 MCV (RBC) [Entitic vol] MCV [Entitic volume] by Automated count 83.5-101 [facility] Monocyte distribution width [Entitic volume] in Blood by AutomatedOrdered By: Louie Marrero on 08-20-2024 Monocyte distribution width Auto (Bld) [Entitic vol] Monocyte distribution width [Entitic volume] in Blood by Automated High 0.00-20.00 [facility] Comment on above: For adults in ED, MD W > 20.0 may be associated with a higher risk of sepsis during the first 12 hrs of hospital admission Monocytes Auto (Bld) [#/Vol] Ordered By: Louie Marrero on 08-20-2024 Monocytes (Bld) [#/Vol] Automated blood monocyte count 0.0-0.8 [facility] Monocytes/100 WBC Auto (Bld) Ordered By: Louie Marrero on 08-20-2024 Monocytes/100 WBC (Bld) Automated monocyte % . [facility] Neutrophils Auto (Bld) [#/Vo l]Ordered By: Louie Marrero on 08-20-2024 Neutrophils (Bld) [#/Vol] Neutrophils [#/volume] in Blood by Automated count 1.8-7.7 [facility] Neutrophils/100 WBC Auto (Bl d)Ordered By: Louie Marrero on 08-20-2024 Neutrophils/100 WBC (Bld) Automated neutrophil % . [facility] Nitrite Test strip Ql (U)Ord ered By: Louie Marrero on 08-20-2024 Nitrite Ql (U) Nitrite [Presence] i n Urine by Test strip Negative [facility] No Panel InformationOrdered By: Louie Marrero on 08-20-2024 Estimated GFR (CKD-EPI) > 60.0 mL/Min [facility] Creatinine Clearance (Chem 58.71 [facility] Nucleated erythrocytes [Pres ence] in Blood by Automated countOrdered By: Louie Marrero on 08-20-2024 Nucleated RBC Auto Ql (Bld) Nucleated erythrocytes [Presence] in Blood by Automated count 0-0.5 [facility] Platelet mean volume Auto (B ld) [Entitic vol]Ordered By: Louie Marrero on 08-20-2024 Platelet mean volume (Bld) [Entitic vol] Platelet mean volume [Entitic volume] in Blood by Automated count 6.6-10.1 [facility] Platelets Auto (Bld) [#/Vol] Ordered By: Louie Marrero on 08-20-2024 Platelets (Bld) [#/Vol] Platelets [#/volume] in Blood by Automated count 150-450 [facility] Potassium [Moles/volume] in Serum or PlasmaOrdered By: Louie Marrero on 08-20-2024 Potassium [Moles/Vol] Potassium [Moles/v olume] in Serum or Plasma 3.5-5.1 [facility] Protein Test strip (U) [Mass /Vol]Ordered By: Louie Marrero on 08-20-2024 Protein (U) [Mass/Vol] Protein [Mass/vol ume] in Urine by Test strip Negative [facility] Protein [Mass/volume] in Ser um or PlasmaOrdered By: Louie Marrero on 08-20-2024 Protein [Mass/Vol] Protein [Mass/volume ] in Serum or Plasma Low 6.4-8.9 [facility] Prothrombin Time INRon 08-20 INR Coag (PPP) [Relative time] 1.1 {INR} Normal [facility] Comment on above: Result [...] heart valves: 3 - 4.5 PERFORMED BY: [place] [address] PATHOLOGIST SERVICES [employer] HEBER SHANNON M.D. Performed By: #### E SR #### [facility] [address] [place] [address] PT Coag (PPP) [Time] 12.9 s Normal 9.0-12.9 [facility] Comment on above: Result Comment: A matocrit value greater than 55% may lead to inaccurate results in coagulation testing. Patients having hematocrit values >55% require a special collection tube for coagulation studies. Please contact the laboratory at [phone] for redraw instructions. Performed By: #### E SR #### [facility] [address] [place] [id number] [facility] Prothrombin time (PT)Ordered By: Louie Marrero on 08-20-2024 PT Coag (PPP) [Time] Prothrombin time (PT) 9.0- 12.9 [facility] Comment on above: A hematocrit value g reater than 55% may lead to inaccurate results in coagulation testing. Patients having hematocrit values >55% require a special collection tube for coagulation studies. Please contact the laboratory at [phone] for redraw instructions. RBC Auto (Bld) [#/Vol]Ordere d By: Louie Marrero on 08-20-2024 RBC (Bld) [#/Vol] Erythrocytes [#/volu me] in Blood by Automated count Low 3.90-5.60 [facility] Respiratory (Upper) Panel, P CRon 08-20-2024 Respiratory [...] A H3 Blank Space ---- PERFORMED BY: [facility] [address] [place] [address] PATHOLOGIST SERVICES [employer] HEBER SHANNON M.D. Normal [facility] Comment on above: Performed By: #### M G, SCAN CBC, CMP #### [facility] [address] Respiratory pathogens DNA an d RNA panel - Nasopharynx by MICHELLE with non-probe detectionOrdered By: Louie Marrero on 08-20-2024 Respiratory pathogens DNA and RNA panel MICHELLE+non-probe (Nph) Respiratory pathogens DNA and RNA panel - Nasopharynx by MICHELLE with non-probe detection [facility] Serum or plasma albumin/glob ulin mass ratioOrdered By: Louie Marrero on 08-20-2024 Albumin/Globulin [Mass ratio] Serum or plasma albumin/globulin mass ratio [facility] Serum or plasma anion gap de terminationOrdered By: Louie Marrero on 08-20-2024 Anion gap [Moles/Vol] Serum or plasma an ion gap determination 6.0-15.0 [facility] Sodium [Moles/volume] in Ser um or PlasmaOrdered By: Louie Marrero on 08-20-2024 Sodium [Moles/Vol] Sodium [Moles/volume ] in Serum or Plasma 136-145 [facility] Specific gravity Test strip (U) [Rel density]Ordered By: Louie Marrero on 08-20-2024 Specific gravity (U) [Rel density] Specific gravity of Urine by Test strip 1.001-1.[address] [facility] Troponin I High Sensitivityo n 08-20-2024 Troponin I High Sensitivity 12 Normal 0-20 [facility] Comment on above: Result Comment: The Troponin units of report have been changed to meet the Chest Pain Accreditation requirement, element EC5.M1l2. Troponin units are changed from pg/ml to ng/L. Also, the decimal is removed and results are in whole numbers. PERFORMED BY: [place] [address] PATHOLOGIST SERVICES [employer] HEBER SHANNON M.D. Performed By: #### M G, SCAN CBC, CMP #### [address] Troponin I.cardiac [Mass/vol ume] in Serum or Plasma by Detection limit <= 0.01 ng/Ordered By: Louie Marrero on 08-20-2024 Troponin I.cardiac DL <= 0.01 ng/mL [Mass/Vol] Troponin I.cardiac [Mass/volume] in Serum or Plasma by Detection limit <= 0.01 ng/ 0-20 [facility] Comment on above: The Troponin units o f report have been changed to meet the Chest Pain Accreditation requirement, element EC5.M1l2. Troponin units are changed from pg/ml to ng/L. Also, the decimal is removed and results are in whole numbers. Urea nitrogen [Mass/volume] in Serum or PlasmaOrdered By: Louie Marrero on 08-20-2024 Urea nitrogen [Mass/Vol] Urea nitrogen [Mass/volume] in Serum or Plasma 12-08 [facility] Urinalysison 08-20-2024 Appearance (U) Clear Normal Clear [facility] Comment on above: Order Comment: Name Collection Type:: Straight Catheter Performed By: #### M G, SCAN CBC, CMP #### [facility] [address] [place] [address] [place] Bilirubin,Urine Negative Normal Negative [facility] Comment on above: Order Comment: Name Collection Type:: Straight Catheter Performed By: #### M G, SCAN CBC, CMP #### [facility] [address] [place] [address] [place] Color (U) Light-Yellow Normal Yellow [facility] Comment on above: Order Comment: Name Collection Type:: Straight Catheter Performed By: #### M G, SCAN CBC, CMP #### [facility] [address] [place] [address] [place] Glucose Ql (U) Normal Normal Normal [facility] Comment on above: Order Comment: Name Collection Type:: Straight Catheter Performed By: #### M G, SCAN CBC, CMP #### [facility] [address] [place] [address] [place] Ketones Ql (U) 1+ High Negative [facility] Comment on above: Order Comment: Name Collection Type:: Straight Catheter Performed By: #### M G, SCAN CBC, CMP #### [facility] [address] [place] [address] [place] Leukocyte esterase Test strip Ql (U) Negative Normal Negative [facility] Comment on above: Order Comment: Name Collection Type:: Straight Catheter Performed By: #### M G, SCAN CBC, CMP #### [facility] [address] [place] [address] [place] Nitrite,Urine Negative Normal Negative [facility] Comment on above: Order Comment: Name Collection Type:: Straight Catheter Performed By: #### M G, SCAN CBC, CMP #### [address] Occult Blood,Urine Negative Normal Negative [facility] Comment on above: Order Comment: Name Collection Type:: Straight Catheter Result Comment: PERF ORMED BY: [place] [address] PATHOLOGIST SERVICES HOST HEBER SHANNON M.D. Performed By: #### M G, SCAN CBC, CMP #### [address] pH (U) 5.5 [pH] Normal 5.0-9.0 [facility] Comment on above: Order Comment: Name Collection Type:: Straight Catheter Performed By: #### M G, SCAN CBC, CMP #### [facility] [address] [place] [address] Protein,Urine Negative Normal Negative [facility] Comment on above: Order Comment: Name Collection Type:: Straight Catheter Performed By: #### M G, SCAN CBC, CMP #### [place] [address] [place] Specificy [place],Urine 1.017 Normal 1.001-1.03 0 [facility] Comment on above: Order Comment: Name Collection Type:: Straight Catheter Performed By: #### M G, SCAN CBC, CMP #### [facility] [address] [place] [address] [place] Urobilinogen,Urine Normal Normal Normal [facility] Comment on above: Order Comment: Name Collection Type:: Straight Catheter Performed By: #### M G, SCAN CBC, CMP #### [facility] [address] [place] [address] [place] Urobilinogen Test strip (U) [Mass/Vol]Ordered By: Louie Marrero on 08-20-2024 Urobilinogen (U) [Mass/Vol] Urobilinogen [Mass/volume] in Urine by Test strip Normal [facility] WBC Auto (Bld) [#/Vol]Ordere d By: Louie Marrero on 08-20-2024 WBC (Bld) [#/Vol] Leukocytes [#/volume ] in Blood by Automated count 4.1-10.5 [facility] X-ray reportOrdered By: Brooks Benavides on 08-20-2024 Study report [facility] Main [address] [address] XRay Report Signed Patient: Jeremie Bennett MR#: [id number] : 1940 Acct:[id number] Age/Sex: 83 / M ADM Date: 5 Loc: ER Room: Type: [facility] ER Attending Dr: Copies to: Louie Marrero DO~ Ordering Provider: Louie Marrero DO Date of Service: 08/20/24 XR/XR chest 1V portable: Fever SINGLE VIEW CHEST CLINICAL HISTORY: Fever, recently finished chemotherapy, cough for 3 weeks COMPARISON: 07/17/2024 FINDINGS: Left-sided pacemaker device. Right-sided Dblvxc-h-Oslb. Posterior changes fromprior ACDF. Mildly enlarged cardiac silhouette. Minimal hazy bibasilar opacities similar prior exam. No effusion or pneumothorax. XR/XR chest 1V portable IMPRESSION: MILD BIBASILAR AIRSPACE OPACITIES, THESE APPEAR SIMILAR PRIOR EXAM. Impression dictated by: Rah Benavides M.D.08/20/2024 6:32 PM Dictation Location: [place] [address] Transcribed By: [facility] 08/20/241831 Dictated By: Rah Benavides MD 08/20/241830 Signed By: 08/20/[address] [facility] Work Phone: XR chest 1V portableon 08-20 XR chest 1V portable [facility] Main [address] [address] XRay Report Signed Patient: Jeremie Bennett MR#: [id number] : 1940 Acct:[id number] Age/Sex: 83 / M ADM Date: 08/20/24 Loc: ER Room: Type: [facility] ER Attending Dr: Copies to: oLuie Marrero DO Ordering Provider: Louie Marrero DO Date of Service: 08/20/24 XR/XR chest 1V portable: Fever SINGLE VIEW CHEST CLINICAL HISTORY: Fever, recently finished chemotherapy, cough for 3 weeks COMPARISON: 07/17/2024 FINDINGS: Left-sided pacemaker device. Right-sided Iqiulb-n-Robh. Posterior changes from prior ACDF. Mildly enlarged cardiac silhouette. Minimal hazy bibasilar opacities similar prior exam. No effusion or pneumothorax. XR/XR chest 1V portable IMPRESSION: MILD BIBASILAR AIRSPACE OPACITIES, THESE APPEAR SIMILAR PRIOR EXAM. Impression dictated by: Rah Benavides M.D.08/20/2024 6:32 PM Dictation Location: [place] [address] Transcribed By: [facility] 08/20/241831 Dictated By: Rah Benavides MD 08/20/241830 Signed By: 08/20/241831 Normal [facility] pH Test strip (U)Ordered By: Louie Marrero on 08-20-2024 pH (U) pH of Urine by Test strip 5.0-9.0 [facility] Alanine aminotransferase [En zymatic activity/volume] in Serum or PlasmaOrdered By: Talib Faustin on 08-16-2024 ALT [Catalytic activity/Vol] Alanine aminotransferase [Enzymatic activity/volume] in Serum or Plasma 7-52 [facility] Albumin [Mass/volume] in Ser um or Plasma by Bromocresol green (BCG) dye binding methoOrdered By: Talib Faustin on 08-16-2024 Albumin BCG dye [Mass/Vol] Albumin [Mass/volume] in Serum or Plasma by Bromocresol green (BCG) dye binding metho 3.5-5.7 [facility] Alkaline phosphatase [Enzyma tic activity/volume] in Serum or PlasmaOrdered By: aTlib Faustin on 08-16-2024 ALP [Catalytic activity/Vol] Alkaline phosphatase [Enzymatic activity/volume] in Serum or Plasma 34-104 [facility] Aspartate aminotransferase [ Enzymatic activity/volume] in Serum or PlasmaOrdered By: Talib Faustin on 08-16-2024 AST [Catalytic activity/Vol] Aspartate aminotransferase [Enzymatic activity/volume] in Serum or Plasma 13-39 [facility] Basophils Auto (Bld) [#/Vol] Ordered By: rick Faustin on 08-16-2024 Basophils (Bld) [#/Vol] Automated basophil count 0.0-0.2 [facility] Basophils/100 WBC Auto (Bld) Ordered By: [facility] Ramin on 08-16-2024 Basophils/100 WBC (Bld) Automated basophil % . [facility] Bilirubin.total [Mass/volume ] in Serum or PlasmaOrdered By: [facility] Ramin on 08-16-2024 Bilirubin [Mass/Vol] Bilirubin.total [Mass/volume] in Serum or Plasma 0.3-1.0 [facility] Calcium [Mass/volume] in Ser um or PlasmaOrdered By: [facility] Ramin on 08-16-2024 Calcium [Mass/Vol] Calcium [Mass/volume ] in Serum or Plasma 8.6-10.3 [facility] Carbon dioxide, total [Moles /volume] in Serum or PlasmaOrdered By: [facility] Hospital[facility] Hargrove on 08-16-2024 CO2 [Moles/Vol] Carbon dioxide, tota l [Moles/volume] in Serum or Plasma 21.0-31.0 [facility] Chloride [Moles/volume] in S stephanie or PlasmaOrdered By: [facility] HospitalConi on 08-16-2024 Chloride [Moles/Vol] Chloride [Moles/vol ume] in Serum or Plasma 98-107 [facility] Complete Blood Count Auto Di ffon 08-16-2024 Basophils (Bld) [#/Vol] 0.1 10*3/uL Normal 0.0-0.2 [facility] Comment on above: Result Comment: PERF ORMED BY: [place] [address] PATHOLOGIST SERVICES HOST HEBER SHANNON M.D. Performed By: #### E #### [address] Basophils/100 WBC (Bld) 1.1 % Normal . [facility] Comment on above: Performed By: #### E SR #### [place] [address] [place] Eosinophils (Bld) [#/Vol] 0.1 10*3/uL Normal 0.0-0.45 [facility] Comment on above: Performed By: #### E SR #### [address] Eosinophils/100 WBC (Bld) 0.7 % Normal . [facility] Comment on above: Performed By: #### E SR #### [address] Erythrocyte distribution width (RBC) [Ratio] 15.2 % High 12.0-14.8 [facility] Comment on above: Performed By: #### E SR #### [address] Hematocrit (Bld) [Volume fraction] 34.8 % Low 38.8-50.0 [facility] Comment on above: Performed By: #### E SR #### [address] Hemoglobin (Bld) [Mass/Vol] 11.7 g/dL Low 13.0-17.0 [facility] Comment on above: Performed By: #### E SR #### [address] Lymphocytes (Bld) [#/Vol] 0.6 10*3/uL Low 1.00-4.8 [facility] Comment on above: Performed By: #### E SR #### [address] Lymphocytes/100 WBC (Bld) 6.4 % Normal . [facility] Comment on above: Performed By: #### E SR #### [address] MCH (RBC) [Entitic mass] 30.8 pg Normal 27.5-35.2 [facility] Comment on above: Performed By: #### E SR #### [address] MCV (RBC) [Entitic vol] 91.9 fL Normal 83.5-101 [facility] Comment on above: Performed By: #### E SR #### [address] Mean Corpuscular HGB Conc 33.5 g/dL Normal 32.5-35.6 [facility] Comment on above: Performed By: #### E SR #### [address] Monocytes (Bld) [#/Vol] 1.1 10*3/uL High 0.0-0.8 [facility] Comment on above: Performed By: #### E SR #### [address] Monocytes/100 WBC (Bld) 12.6 % Normal . [facility] Comment on above: Performed By: #### E SR #### [address] Neutrophils (Bld) [#/Vol] 7.2 10*3/uL Normal 1.8-7.7 [facility] Comment on above: Performed By: #### E SR #### [address] Neutrophils/100 WBC (Bld) 79.2 % Normal . [facility] Group Comment on above: Performed By: #### E SR #### [address] NRBC% 0.1 /100{WBC} Normal 0-0.5 [facility] Comment on above: Performed By: #### E SR #### [address] Platelet mean volume (Bld) [Entitic vol] 7.5 fL Normal 6.6-10.1 The [facility] Comment on above: Performed By: #### E SR #### [place] [address] [place] Platelets (Bld) [#/Vol] 236 10*3/uL Normal 150-450 [facility] Comment on above: Performed By: #### E SR #### [address] RBC (Bld) [#/Vol] 3.79 10*6/uL Low 3.90-5.60 [facility] [place] [facility] Comment on above: Performed By: #### E SR #### [address] WBC (Bld) [#/Vol] 9.1 10*3/uL Normal 4.1-10.5 The [facility] Comment on above: Performed By: #### E SR #### [address] Comprehensive Metabolic Pane obdulio 08-16-2024 Albumin [Mass/Vol] 3.6 g/dL Normal 3.5-5.7 The [facility] Comment on above: Performed By: #### E SR #### [address] Albumin/Globulin [Mass ratio] 1.4 {ratio} Normal [facility] Comment on above: Performed By: #### E SR #### [address] ALP [Catalytic activity/Vol] 73 U/L Normal 34-104 [facility] Comment on above: Performed By: #### E SR #### [address] ALT [Catalytic activity/Vol] 14 U/L Normal 7-52 [facility] Comment on above: Performed By: #### E SR #### [address] Anion gap [Moles/Vol] 10.5 mmol/L Normal 6.0-15.0 [facility] Comment on above: Performed By: #### E SR #### [address] AST [Catalytic activity/Vol] 13 U/L Normal 13-39 [facility] Comment on above: Performed By: #### E SR #### [address] Bilirubin [Mass/Vol] 0.4 mg/dL Normal 0.3-1.0 [facility] Comment on above: Performed By: #### E SR #### [facility] [address] Calcium [Mass/Vol] 8.6 mg/dL Normal 8.6-10.3 [facility] Comment on above: Performed By: #### E SR #### [address] Chloride [Moles/Vol] 107 mmol/L Normal 98-107 [facility] Comment on above: Performed By: #### E SR #### [address] CO2 [Moles/Vol] 24.4 mmol/L Normal 21.0-31.0 The [facility] Comment on above: Performed By: #### E SR #### [address] Creatinine [Mass/Vol] 0.83 mg/dL Normal 0.70-1.30 [facility] Comment on above: Performed By: #### E SR #### [address] Creatinine Clr Calc Pharmacy 59.79 Normal [facility] Comment on above: Result Comment: PERF ORMED BY: [place] [address] PATHOLOGIST SERVICES [employer] HEBER SHANNON M.D. Performed By: #### E SR #### [address] GFR/1.73 sq M.predicted MDRD (S/P/Bld) [Vol rate/Area] mL/min/{1.73_m2} Normal [facility] Comment on above: Performed By: #### E SR #### [address] Globulin (S) [Mass/Vol] 2.6 g/dL Normal [facility] Comment on above: Performed By: #### E SR #### [facility] [address] Glucose [Mass/Vol] 119 mg/dL High 70-100 [facility] Comment on above: Result Comment: [place] Glucose Reference Range is dependent on time and content of last meal. Glucose of more than 200 mg/dL in a nonstressed, ambulatory subject supports the diagnosis of Diabetes Mellitus. ADA recommended reference range Performed By: #### E SR #### [address] Potassium [Moles/Vol] 3.9 mmol/L Normal 3.5-5.1 [facility] Comment on above: Performed By: #### E SR #### [address] Protein [Mass/Vol] 6.2 g/dL Low 6.4-8.9 [facility] Comment on above: Performed By: #### E SR #### [address] Sodium [Moles/Vol] 138 mmol/L Normal 136-145 [facility] Comment on above: Performed By: #### E SR #### [address] Urea nitrogen [Mass/Vol] 19 mg/dL Normal 7-25 [facility] Comment on above: Performed By: #### E SR #### [place] [address] [place] Creatinine [Mass/volume] in Serum or PlasmaOrdered By: Talib Faustin on 08-16-2024 Creatinine [Mass/Vol] Creatinine [Mass/v olume] in Serum or Plasma 0.70-1.30 [facility] Eosinophils Auto (Bld) [#/Vo l]Ordered By: Talib Faustin on 08-16-2024 Eosinophils (Bld) [#/Vol] Automated eosinophil count 0.0-0.45 [facility] Eosinophils/100 WBC Auto (Bl d)Ordered By: rick Faustin on 08-16-2024 Eosinophils/100 WBC (Bld) Automated eosinophil % . [facility] Erythrocyte distribution wid th Auto (RBC) [Ratio]Ordered By: Talib Faustin on 08-16-2024 Erythrocyte distribution width (RBC) [Ratio] Erythrocyte distribution width [Ratio] by Automated count High 12.0-14.8 [facility] Globulin Calc (S) [Mass/Vol] Ordered By: rick Faustin on 08-16-2024 Globulin (S) [Mass/Vol] Serum globulin measurement by calculation (mass/volume) [facility] Glucose [Mass/volume] in Ser um or PlasmaOrdered By: rick Faustin on 08-16-2024 Glucose [Mass/Vol] Glucose [Mass/volume ] in Serum or Plasma High 70-100 [facility] Comment on above: ADA recommended refe rence rangeRandom Glucose Reference Range is dependent on time and content of last meal. Glucose of more than 200 mg/dL in a nonstressed, ambulatory subject supports the diagnosis of Diabetes Mellitus. Hematocrit Auto (Bld) [Volum e fraction]Ordered By: rick Faustin on 08-16-2024 Hematocrit (Bld) [Volume fraction] Hematocrit [Volume Fraction] of Blood by Automated count Low 38.8-50.0 [facility] Hemoglobin [Mass/volume] in BloodOrdered By: rick Faustin on 08-16-2024 Hemoglobin (Bld) [Mass/Vol] Hemoglobin [Mass/volume] in Blood Low 13.0-17.0 [facility] Leukocytes [#/volume] correc suzy for nucleated erythrocytes in Blood by Automated counOrdered By: rick Faustin on 08-16-2024 WBC corrected for nucl RBC Auto (Bld) [#/Vol] Leukocytes [#/volume] corrected for nucleated erythrocytes in Blood by Automated coun 4.1-10.5 [facility] Lymphocytes Auto (Bld) [#/Vo l]Ordered By: rick Faustin on 08-16-2024 Lymphocytes (Bld) [#/Vol] Lymphocytes [#/volume] in Blood by Automated count Low 1.00-4.8 [facility] Lymphocytes/100 WBC Auto (Bl d)Ordered By: Talib Faustin on 08-16-2024 Lymphocytes/100 WBC (Bld) Lymphocytes/100 leukocytes in Blood by Automated count . [facility] MCH Auto (RBC) [Entitic mass ]Ordered By: Talib Faustin on 08-16-2024 MCH (RBC) [Entitic mass] MCH [Entitic mass] by Automated count 27.5-35.2 [facility] MCHC Auto (RBC) [Mass/Vol]Or dered By: Talib Faustin on 08-16-2024 MCHC (RBC) [Mass/Vol] MCHC [Mass/volume] by Automated count 32.5-35.6 [facility] MCV Auto (RBC) [Entitic vol] Ordered By: Talib Faustin on 08-16-2024 MCV (RBC) [Entitic vol] MCV [Entitic volume] by Automated count 83.5-101 [facility] Monocytes Auto (Bld) [#/Vol] Ordered By: rick Faustin on 08-16-2024 Monocytes (Bld) [#/Vol] Automated blood monocyte count High 0.0-0.8 [facility] Monocytes/100 WBC Auto (Bld) Ordered By: Talib Faustin on 08-16-2024 Monocytes/100 WBC (Bld) Automated monocyte % . [facility] Neutrophils Auto (Bld) [#/Vo l]Ordered By: Talib Faustin on 08-16-2024 Neutrophils (Bld) [#/Vol] Neutrophils [#/volume] in Blood by Automated count 1.8-7.7 [facility] Neutrophils/100 WBC Auto (Bl d)Ordered By: rick Faustin on 08-16-2024 Neutrophils/100 WBC (Bld) Automated neutrophil % . [facility] No Panel InformationOrdered By: Talib Faustin on 08-16-2024 Estimated GFR (CKD-EPI) > 60.0 mL/Min [facility] Creatinine Clearance (Chem 59.79 [facility] Nucleated erythrocytes [Pres ence] in Blood by Automated countOrdered By: Talib Faustin on 08-16-2024 Nucleated RBC Auto Ql (Bld) Nucleated erythrocytes [Presence] in Blood by Automated count 0-0.5 [facility] Platelet mean volume Auto (B ld) [Entitic vol]Ordered By: Talib Faustin on 08-16-2024 Platelet mean volume (Bld) [Entitic vol] Platelet mean volume [Entitic volume] in Blood by Automated count 6.6-10.1 [facility] Platelets Auto (Bld) [#/Vol] Ordered By: Talib Faustin on 08-16-2024 Platelets (Bld) [#/Vol] Platelets [#/volume] in Blood by Automated count 150-450 [facility] Potassium [Moles/volume] in Serum or PlasmaOrdered By: Talib Faustin on 08-16-2024 Potassium [Moles/Vol] Potassium [Moles/v olume] in Serum or Plasma 3.5-5.1 [facility] Protein [Mass/volume] in Ser um or PlasmaOrdered By: Talib Faustin on 08-16-2024 Protein [Mass/Vol] Protein [Mass/volume ] in Serum or Plasma Low 6.4-8.9 [facility] RBC Auto (Bld) [#/Vol]Ordere d By: Talib Faustin on 08-16-2024 RBC (Bld) [#/Vol] Erythrocytes [#/volu me] in Blood by Automated count Low 3.90-5.60 [facility] Serum or plasma albumin/glob ulin mass ratioOrdered By: Talib Faustin on 08-16-2024 Albumin/Globulin [Mass ratio] Serum or plasma albumin/globulin mass ratio [facility] Serum or plasma anion gap de terminationOrdered By: Talib Faustin on 08-16-2024 Anion gap [Moles/Vol] Serum or plasma an ion gap determination 6.0-15.0 [facility] Sodium [Moles/volume] in Ser um or PlasmaOrdered By: Talib Faustin on 08-16-2024 Sodium [Moles/Vol] Sodium [Moles/volume ] in Serum or Plasma 136-145 [facility] Urea nitrogen [Mass/volume] in Serum or PlasmaOrdered By: Talib Faustin on 08-16-2024 Urea nitrogen [Mass/Vol] Urea nitrogen [Mass/volume] in Serum or Plasma 7- [facility] WBC Auto (Bld) [#/Vol]Ordere d By: Talib Faustin on 08-16-2024 WBC (Bld) [#/Vol] Leukocytes [#/volume ] in Blood by Automated count 4.1-10.5 [facility] Complete Blood Count Auto Di ffon 08-09-2024 Basophils (Bld) [#/Vol] 0.0 10*3/uL Normal 0.0-0.2 [facility] Comment on above: Result Comment: PERF ORMED BY: [place] [address] PATHOLOGIST SERVICES [employer] HEBER SHANNON M.D. Performed By: #### C MP, CBC #### [address] Basophils/100 WBC (Bld) 0.4 % Normal . [facility] Comment on above: Performed By: #### C MP, CBC #### [address] Eosinophils (Bld) [#/Vol] 0.0 10*3/uL Normal 0.0-0.45 [facility] Comment on above: Performed By: #### C MP, CBC #### [address] Eosinophils/100 WBC (Bld) 0.5 % Normal . [facility] Comment on above: Performed By: #### C MP, CBC #### [address] Erythrocyte distribution width (RBC) [Ratio] 14.7 % Normal 12.0-14.8 [facility] Comment on above: Performed By: #### C MP, CBC #### [address] Hematocrit (Bld) [Volume fraction] 36.9 % Low 38.8-50.0 [facility] Comment on above: Performed By: #### C MP, CBC #### [address] Hemoglobin (Bld) [Mass/Vol] 12.4 g/dL Low 13.0-17.0 [facility] Comment on above: Performed By: #### C MP, CBC #### [address] Lymphocytes (Bld) [#/Vol] 0.6 10*3/uL Low 1.00-4.8 [facility] Comment on above: Performed By: #### C MP, CBC #### [address] Lymphocytes/100 WBC (Bld) 7.4 % Normal . [facility] Comment on above: Performed By: #### C MP, CBC #### [address] MCH (RBC) [Entitic mass] 30.9 pg Normal 27.5-35.2 [facility] Comment on above: Performed By: #### C MP, CBC #### [address] MCV (RBC) [Entitic vol] 92.2 fL Normal 83.5-101 [facility] Comment on above: Performed By: #### C MP, CBC #### [address] Mean Corpuscular HGB Conc 33.6 g/dL Normal 32.5-35.6 [facility] Comment on above: Performed By: #### C MP, CBC #### [address] Monocytes (Bld) [#/Vol] 0.8 10*3/uL Normal 0.0-0.8 [facility] Comment on above: Performed By: #### C MP, CBC #### [address] Monocytes/100 WBC (Bld) 8.9 % Normal . [facility] Comment on above: Performed By: #### C MP, CBC #### [facility] [address] [place] [address] [place] Neutrophils (Bld) [#/Vol] 7.2 10*3/uL Normal 1.8-7.7 [facility] Comment on above: Performed By: #### C MP, CBC #### [facility] [address] Neutrophils/100 WBC (Bld) 82.8 % Normal . [facility] Comment on above: Performed By: #### C MP, CBC #### [facility] [address] NRBC% 0.1 /100{WBC} Normal 0-0.5 [facility] Comment on above: Performed By: #### C MP, CBC #### [facility] [address] Platelet mean volume (Bld) [Entitic vol] 7.9 fL Normal 6.6-10.1 [facility] Comment on above: Performed By: #### C MP, CBC #### [facility] [address] [place] [address] [place] Platelets (Bld) [#/Vol] 245 10*3/uL Normal 150-450 [facility] Comment on above: Performed By: #### C MP, CBC #### [facility] [address] [place] [address] [place] RBC (Bld) [#/Vol] 4.00 10*6/uL Normal 3.90-5.60 [facility] Comment on above: Performed By: #### C MP, CBC #### [facility] [address] [place] [id number] [place] WBC (Bld) [#/Vol] 8.7 10*3/uL Normal 4.1-10.5 [facility] Comment on above: Performed By: #### C MP, CBC #### [facility] [address] Comprehensive Metabolic Pane obdulio 08-09-2024 Albumin [Mass/Vol] 3.7 g/dL Normal 3.5-5.7 [facility] Comment on above: Performed By: #### C MP, CBC #### [address] Albumin/Globulin [Mass ratio] 1.2 {ratio} Normal [facility] Comment on above: Performed By: #### C MP, CBC #### [address] ALP [Catalytic activity/Vol] 69 U/L Normal 34-104 [facility] Comment on above: Performed By: #### C MP, CBC #### [address] ALT [Catalytic activity/Vol] 18 U/L Normal 7-52 [facility] Comment on above: Performed By: #### C MP, CBC #### [address] Anion gap [Moles/Vol] 10.4 mmol/L Normal 6.0-15.0 [facility] Comment on above: Performed By: #### C MP, CBC #### [address] AST [Catalytic activity/Vol] 18 U/L Normal 13-39 [facility] Comment on above: Performed By: #### C MP, CBC #### [address] Bilirubin [Mass/Vol] 0.4 mg/dL Normal 0.3-1.0 [facility] Comment on above: Performed By: #### C MP, CBC #### [address] Calcium [Mass/Vol] 9.4 mg/dL Normal 8.6-10.3 [facility] Comment on above: Performed By: #### C MP, CBC #### [address] Chloride [Moles/Vol] 102 mmol/L Normal 98-107 [facility] Comment on above: Performed By: #### C MP, CBC #### [address] CO2 [Moles/Vol] 26.5 mmol/L Normal 21.0-31.0 [facility] Comment on above: Performed By: #### C MP, CBC #### [address] Creatinine [Mass/Vol] 0.91 mg/dL Normal 0.70-1.30 [facility] Comment on above: Performed By: #### C MP, CBC #### [place] [address] [place] Creatinine Clr Calc Pharmacy 54.53 Normal [facility] Comment on above: Result Comment: PERF ORMED BY: [place] [address] PATHOLOGIST SERVICES [employer] HEBER SHANNON M.D. Performed By: #### C MP, CBC #### [place] [address] [place] GFR/1.73 sq M.predicted MDRD (S/P/Bld) [Vol rate/Area] mL/min/{1.73_m2} Normal [facility] Comment on above: Performed By: #### C MP, CBC #### [address] Globulin (S) [Mass/Vol] 3.0 g/dL Normal [facility] Comment on above: Performed By: #### C MP, CBC #### [address] Glucose [Mass/Vol] 163 mg/dL High 70-100 [facility] Comment on above: Result Comment: [place] Glucose Reference Range is dependent on time and content of last meal. Glucose of more than 200 mg/dL in a nonstressed, ambulatory subject supports the diagnosis of Diabetes Mellitus. ADA recommended reference range Performed By: #### C MP, CBC #### [place] [address] [place] Potassium [Moles/Vol] 3.9 mmol/L Normal 3.5-5.1 [facility] Comment on above: Performed By: #### C MP, CBC #### [address] Protein [Mass/Vol] 6.7 g/dL Normal 6.4-8.9 [facility] Comment on above: Performed By: #### C MP, CBC #### [address] Sodium [Moles/Vol] 135 mmol/L Low 136-145 [facility] Comment on above: Performed By: #### C MP, CBC #### [address] Urea nitrogen [Mass/Vol] 31 mg/dL High 7-25 [facility] Comment on above: Performed By: #### C MP, CBC #### [address] Complete Blood Count Auto Di ffon 08-02-2024 Basophils (Bld) [#/Vol] 0.1 10*3/uL Normal 0.0-0.2 [facility] Comment on above: Result Comment: PERF ORMED BY: [place] [address] PATHOLOGIST SERVICES [employer] HEBER SHANNON M.D. Performed By: #### M G, SCAN CBC, CMP #### [address] Basophils/100 WBC (Bld) 1.0 % Normal . [facility] Comment on above: Performed By: #### M G, SCAN CBC, CMP #### [place] [address] [place] Eosinophils (Bld) [#/Vol] 0.0 10*3/uL Normal 0.0-0.45 [facility] Comment on above: Performed By: #### M G, SCAN CBC, CMP #### [place] [address] [place] Eosinophils/100 WBC (Bld) 0.6 % Normal . [facility] Comment on above: Performed By: #### M G, SCAN CBC, CMP #### [address] Erythrocyte distribution width (RBC) [Ratio] 14.0 % Normal 12.0-14.8 [facility] Comment on above: Performed By: #### M G, SCAN CBC, CMP #### [address] Hematocrit (Bld) [Volume fraction] 35.5 % Low 38.8-50.0 [facility] Comment on above: Performed By: #### M G, SCAN CBC, CMP #### [address] Hemoglobin (Bld) [Mass/Vol] 12.1 g/dL Low 13.0-17.0 [facility] Comment on above: Performed By: #### M G, SCAN CBC, CMP #### [address] Lymphocytes (Bld) [#/Vol] 0.6 10*3/uL Low 1.00-4.8 [facility] Comment on above: Performed By: #### M G, SCAN CBC, CMP #### [address] Lymphocytes/100 WBC (Bld) 10.3 % Normal . [facility] Comment on above: Performed By: #### M G, SCAN CBC, CMP #### [address] MCH (RBC) [Entitic mass] 31.4 pg Normal 27.5-35.2 [facility] Comment on above: Performed By: #### M G, SCAN CBC, CMP #### [address] MCV (RBC) [Entitic vol] 92.2 fL Normal 83.5-101 [facility] Comment on above: Performed By: #### M G, SCAN CBC, CMP #### [place] [address] Mean Corpuscular HGB Conc 34.0 g/dL Normal 32.5-35.6 [facility] Comment on above: Performed By: #### M G, SCAN CBC, CMP #### [address] Monocytes (Bld) [#/Vol] 0.9 10*3/uL High 0.0-0.8 [facility] Comment on above: Performed By: #### M G, SCAN CBC, CMP #### [address] Monocytes/100 WBC (Bld) 14.8 % Normal . [facility] Comment on above: Performed By: #### M G, SCAN CBC, CMP #### [address] Neutrophils (Bld) [#/Vol] 4.5 10*3/uL Normal 1.8-7.7 [facility] Comment on above: Performed By: #### M G, SCAN CBC, CMP #### [place] [address] [place] Neutrophils/100 WBC (Bld) 73.3 % Normal . [facility] Comment on above: Performed By: #### M G, SCAN CBC, CMP #### [address] NRBC% 0.1 /100{WBC} Normal 0-0.5 [facility] Comment on above: Performed By: #### M G, SCAN CBC, CMP #### [place] [address] [place] Platelet mean volume (Bld) [Entitic vol] 7.4 fL Normal 6.6-10.1 [facility] Comment on above: Performed By: #### M G, SCAN CBC, CMP #### [place] [address] [place] Platelets (Bld) [#/Vol] 215 10*3/uL Normal 150-450 [facility] Comment on above: Performed By: #### M G, SCAN CBC, CMP #### [facility] [address] RBC (Bld) [#/Vol] 3.85 10*6/uL Low 3.90-5.60 [facility] Comment on above: Performed By: #### M G, SCAN CBC, CMP #### [facility] [address] WBC (Bld) [#/Vol] 6.2 10*3/uL Normal 4.1-10.5 [facility] Comment on above: Performed By: #### M G, SCAN CBC, CMP #### [address] Comprehensive Metabolic Pane obdulio 08-02-2024 Albumin [Mass/Vol] 3.6 g/dL Normal 3.5-5.7 [facility] Comment on above: Performed By: #### M G, SCAN CBC, CMP #### [address] Albumin/Globulin [Mass ratio] 1.3 {ratio} Normal [facility] Comment on above: Performed By: #### M G, SCAN CBC, CMP #### [address] ALP [Catalytic activity/Vol] 75 U/L Normal 34-104 [facility] Comment on above: Performed By: #### M G, SCAN CBC, CMP #### [address] ALT [Catalytic activity/Vol] 12 U/L Normal 7-52 [facility] Comment on above: Performed By: #### M G, SCAN CBC, CMP #### [address] Anion gap [Moles/Vol] 10.1 mmol/L Normal 6.0-15.0 [facility] Comment on above: Performed By: #### M G, SCAN CBC, CMP #### [facility] [address] [place] [address] AST [Catalytic activity/Vol] 13 U/L Normal 13-39 [facility] Comment on above: Performed By: #### M G, SCAN CBC, CMP #### [facility] [address] [place] [address] [place] Bilirubin [Mass/Vol] 0.5 mg/dL Normal 0.3-1.0 [facility] Comment on above: Performed By: #### M G, SCAN CBC, CMP #### [facility] [address] [place] [address] [place] Calcium [Mass/Vol] 8.5 mg/dL Low 8.6-10.3 [facility] Comment on above: Performed By: #### M G, SCAN CBC, CMP #### [facility] [address] [place] [address] [place] Chloride [Moles/Vol] 103 mmol/L Normal 98-107 [facility] Comment on above: Performed By: #### M G, SCAN CBC, CMP #### [place] [address] [place] CO2 [Moles/Vol] 27.1 mmol/L Normal 21.0-31.0 [facility] Comment on above: Performed By: #### M G, SCAN CBC, CMP #### [place] [address] [place] Creatinine [Mass/Vol] 1.03 mg/dL Normal 0.70-1.30 [facility] Comment on above: Performed By: #### M G, SCAN CBC, CMP #### [place] [address] [place] Creatinine Clr Calc Pharmacy 48.18 Normal [facility] Comment on above: Result Comment: PERF ORMED BY: [place] [address] PATHOLOGIST SERVICES [employer] HEBER SHANNON M.D. Performed By: #### M G, SCAN CBC, CMP #### [place] [address] [place] GFR/1.73 sq M.predicted MDRD (S/P/Bld) [Vol rate/Area] mL/min/{1.73_m2} Normal [facility] Comment on above: Performed By: #### M G, SCAN CBC, CMP #### [facility] [address] [place] [address] [place] Globulin (S) [Mass/Vol] 2.7 g/dL Normal [facility] Comment on above: Performed By: #### M G, SCAN CBC, CMP #### [facility] [address] [place] [address] [place] Glucose [Mass/Vol] 120 mg/dL High 70-100 [facility] Comment on above: Result Comment: [facility] Glucose Reference Range is dependent on time and content of last meal. Glucose of more than 200 mg/dL in a nonstressed, ambulatory subject supports the diagnosis of Diabetes Mellitus. ADA recommended reference range Performed By: #### M G, SCAN CBC, CMP #### [address] Potassium [Moles/Vol] 4.2 mmol/L Normal 3.5-5.1 [facility] Comment on above: Performed By: #### M G, SCAN CBC, CMP #### [facility] [address] [place] [address] [place] Protein [Mass/Vol] 6.3 g/dL Low 6.4-8.9 [facility] Comment on above: Performed By: #### M G, SCAN CBC, CMP #### [place] [address] [place] Sodium [Moles/Vol] 136 mmol/L Normal 136-145 [facility] Comment on above: Performed By: #### M G, SCAN CBC, CMP #### [facility] [address] [place] [address] [place] Urea nitrogen [Mass/Vol] 35 mg/dL High 7-25 [facility] Comment on above: Performed By: #### M G, SCAN CBC, CMP #### [facility] [address] Alanine aminotransferase [En zymatic activity/volume] in Serum or PlasmaOrdered By: Talib Faustin on 07-26-2024 ALT [Catalytic activity/Vol] Alanine aminotransferase [Enzymatic activity/volume] in Serum or Plasma 7-52 [facility] Albumin [Mass/volume] in Ser um or Plasma by Bromocresol green (BCG) dye binding methoOrdered By: Talib Faustin on 07-26-2024 Albumin BCG dye [Mass/Vol] Albumin [Mass/volume] in Serum or Plasma by Bromocresol green (BCG) dye binding metho 3.5-5.7 [facility] Alkaline phosphatase [Enzyma tic activity/volume] in Serum or PlasmaOrdered By: Talib Faustin on 07-26-2024 ALP [Catalytic activity/Vol] Alkaline phosphatase [Enzymatic activity/volume] in Serum or Plasma 34-104 [facility] Aspartate aminotransferase [ Enzymatic activity/volume] in Serum or PlasmaOrdered By: Talib Faustin on 07-26-2024 AST [Catalytic activity/Vol] Aspartate aminotransferase [Enzymatic activity/volume] in Serum or Plasma 13-39 [facility] Basophils Auto (Bld) [#/Vol] Ordered By: Talib Faustin on 07-26-2024 Basophils (Bld) [#/Vol] Automated basophil count 0.0-0.2 [facility] Basophils/100 WBC Auto (Bld) Ordered By: Talib Faustin on 07-26-2024 Basophils/100 WBC (Bld) Automated basophil % . [facility] Bilirubin.total [Mass/volume ] in Serum or PlasmaOrdered By: Talib Faustin on 07-26-2024 Bilirubin [Mass/Vol] Bilirubin.total [Mass/volume] in Serum or Plasma 0.3-1.0 [facility] Calcium [Mass/volume] in Ser um or PlasmaOrdered By: Talib Faustin on 07-26-2024 Calcium [Mass/Vol] Calcium [Mass/volume ] in Serum or Plasma 8.6-10.3 [facility] Carbon dioxide, total [Moles /volume] in Serum or PlasmaOrdered By: Talib Hargrove on 07-26-2024 CO2 [Moles/Vol] Carbon dioxide, tota l [Moles/volume] in Serum or Plasma 21.0-31.0 [facility] Chloride [Moles/volume] in S stephanie or PlasmaOrdered By: Talib Faustin on 07-26-2024 Chloride [Moles/Vol] Chloride [Moles/vol ume] in Serum or Plasma 98-107 [facility] Complete Blood Count Auto Di ffon 07-26-2024 Basophils (Bld) [#/Vol] 0.1 10*3/uL Normal 0.0-0.2 [facility] Comment on above: Result Comment: PERF ORMED BY: [place] [address] PATHOLOGIST SERVICES [employer] HEBER SHANNON M.D. Performed By: #### E SR #### [address] Basophils/100 WBC (Bld) 1.0 % Normal . [facility] Comment on above: Performed By: #### E SR #### [address] Eosinophils (Bld) [#/Vol] 0.1 10*3/uL Normal 0.0-0.45 [facility] Comment on above: Performed By: #### E SR #### [address] Eosinophils/100 WBC (Bld) 1.4 % Normal . [facility] Comment on above: Performed By: #### E SR #### [address] Erythrocyte distribution width (RBC) [Ratio] 13.6 % Normal 12.0-14.8 [facility] Comment on above: Performed By: #### E SR #### [address] Hematocrit (Bld) [Volume fraction] 35.4 % Low 38.8-50.0 [facility] Comment on above: Performed By: #### E SR #### [address] Hemoglobin (Bld) [Mass/Vol] 12.0 g/dL Low 13.0-17.0 [facility] Comment on above: Performed By: #### E SR #### [address] Lymphocytes (Bld) [#/Vol] 0.9 10*3/uL Low 1.00-4.8 [facility] Comment on above: Performed By: #### E SR #### [address] Lymphocytes/100 WBC (Bld) 13.0 % Normal . [facility] Comment on above: Performed By: #### E SR #### [address] MCH (RBC) [Entitic mass] 31.1 pg Normal 27.5-35.2 [facility] Comment on above: Performed By: #### E SR #### [address] MCV (RBC) [Entitic vol] 91.5 fL Normal 83.5-101 [facility] Comment on above: Performed By: #### E SR #### [address] Mean Corpuscular HGB Conc 34.0 g/dL Normal 32.5-35.6 [facility] Comment on above: Performed By: #### E SR #### [address] Monocytes (Bld) [#/Vol] 0.7 10*3/uL Normal 0.0-0.8 [facility] Comment on above: Performed By: #### E SR #### [place] [address] [place] Monocytes/100 WBC (Bld) 9.8 % Normal . [facility] Comment on above: Performed By: #### E SR #### [address] Neutrophils (Bld) [#/Vol] 5.1 10*3/uL Normal 1.8-7.7 [facility] Comment on above: Performed By: #### E SR #### [facility] [address] Neutrophils/100 WBC (Bld) 74.8 % Normal . [facility] Comment on above: Performed By: #### E SR #### [facility] [address] NRBC% 0.1 /100{WBC} Normal 0-0.5 [facility] Comment on above: Performed By: #### E SR #### [address] Platelet mean volume (Bld) [Entitic vol] 7.4 fL Normal 6.6-10.1 [facility] Comment on above: Performed By: #### E SR #### [address] Platelets (Bld) [#/Vol] 217 10*3/uL Normal 150-450 [facility] Comment on above: Performed By: #### E SR #### [address] RBC (Bld) [#/Vol] 3.87 10*6/uL Low 3.90-5.60 [facility] Comment on above: Performed By: #### E SR #### [address] WBC (Bld) [#/Vol] 6.9 10*3/uL Normal 4.1-10.5 [facility] Comment on above: Performed By: #### E SR #### [address] Comprehensive Metabolic Pane obdulio 07-26-2024 Albumin [Mass/Vol] 3.7 g/dL Normal 3.5-5.7 [facility] Comment on above: Performed By: #### E SR #### [address] Albumin/Globulin [Mass ratio] 1.3 {ratio} Normal [facility] Comment on above: Performed By: #### E SR #### [address] ALP [Catalytic activity/Vol] 80 U/L Normal 34-104 [facility] Comment on above: Performed By: #### E SR #### [address] ALT [Catalytic activity/Vol] 13 U/L Normal 7-52 [facility] Comment on above: Performed By: #### E SR #### [address] Anion gap [Moles/Vol] 9.4 mmol/L Normal 6.0-15.0 [facility] Comment on above: Performed By: #### E SR #### [address] AST [Catalytic activity/Vol] 14 U/L Normal 13-39 [facility] Comment on above: Performed By: #### E SR #### [address] Bilirubin [Mass/Vol] 0.5 mg/dL Normal 0.3-1.0 [facility] Comment on above: Performed By: #### E SR #### [address] Calcium [Mass/Vol] 8.9 mg/dL Normal 8.6-10.3 [facility] Comment on above: Performed By: #### E SR #### [place] [address] [place] Chloride [Moles/Vol] 104 mmol/L Normal 98-107 [facility] Comment on above: Performed By: #### E SR #### [address] CO2 [Moles/Vol] 26.8 mmol/L Normal 21.0-31.0 [facility] Comment on above: Performed By: #### E SR #### [address] Creatinine [Mass/Vol] 0.87 mg/dL Normal 0.70-1.30 [facility] Comment on above: Performed By: #### E SR #### [address] Creatinine Clr Calc Pharmacy 57.04 Normal [facility] Comment on above: Result Comment: PERF ORMED BY: [place] [address] PATHOLOGIST SERVICES [employer] HEBER SHANNON M.D. Performed By: #### E SR #### [address] GFR/1.73 sq M.predicted MDRD (S/P/Bld) [Vol rate/Area] mL/min/{1.73_m2} Normal [facility] Comment on above: Performed By: #### E SR #### [address] Globulin (S) [Mass/Vol] 2.9 g/dL Normal [facility] Comment on above: Performed By: #### E SR #### [address] Glucose [Mass/Vol] 107 mg/dL High 70-100 [facility] Comment on above: Result Comment: [place] Glucose Reference Range is dependent on time and content of last meal. Glucose of more than 200 mg/dL in a nonstressed, ambulatory subject supports the diagnosis of Diabetes Mellitus. ADA recommended reference range Performed By: #### E SR #### [address] Potassium [Moles/Vol] 4.2 mmol/L Normal 3.5-5.1 [facility] Comment on above: Performed By: #### E SR #### [address] Protein [Mass/Vol] 6.6 g/dL Normal 6.4-8.9 [facility] Comment on above: Performed By: #### E SR #### [address] Sodium [Moles/Vol] 136 mmol/L Normal 136-145 [facility] Comment on above: Performed By: #### E SR #### [facility] [address] [place] [address] [place] Urea nitrogen [Mass/Vol] 30 mg/dL High 7-25 [facility] Comment on above: Performed By: #### E SR #### [facility] [address] Creatinine [Mass/volume] in Serum or PlasmaOrdered By: Talib Faustin on 07-26-2024 Creatinine [Mass/Vol] Creatinine [Mass/v olume] in Serum or Plasma 0.70-1.30 [facility] Eosinophils Auto (Bld) [#/Vo l]Ordered By: Talib Faustin on 07-26-2024 Eosinophils (Bld) [#/Vol] Automated eosinophil count 0.0-0.45 [facility] Eosinophils/100 WBC Auto (Bl d)Ordered By: rick Faustin on 07-26-2024 Eosinophils/100 WBC (Bld) Automated eosinophil % . [facility] Erythrocyte distribution wid th Auto (RBC) [Ratio]Ordered By: rick Faustin on 07-26-2024 Erythrocyte distribution width (RBC) [Ratio] Erythrocyte distribution width [Ratio] by Automated count 12.0-14.8 [facility] Globulin Calc (S) [Mass/Vol] Ordered By: rick Faustin on 07-26-2024 Globulin (S) [Mass/Vol] Serum globulin measurement by calculation (mass/volume) [facility] Glucose [Mass/volume] in Ser um or PlasmaOrdered By: rick Faustin on 07-26-2024 Glucose [Mass/Vol] Glucose [Mass/volume ] in Serum or Plasma High 70-100 [facility] Comment on above: ADA recommended refe rence rangeRandom Glucose Reference Range is dependent on time and content of last meal. Glucose of more than 200 mg/dL in a nonstressed, ambulatory subject supports the diagnosis of Diabetes Mellitus. Hematocrit Auto (Bld) [Volum e fraction]Ordered By: Talib Faustin on 07-26-2024 Hematocrit (Bld) [Volume fraction] Hematocrit [Volume Fraction] of Blood by Automated count Low 38.8-50.0 [facility] Hemoglobin [Mass/volume] in BloodOrdered By: Talib Faustin on 07-26-2024 Hemoglobin (Bld) [Mass/Vol] Hemoglobin [Mass/volume] in Blood Low 13.0-17.0 [facility] Leukocytes [#/volume] correc suzy for nucleated erythrocytes in Blood by Automated counOrdered By: Talib Faustin on 07-26-2024 WBC corrected for nucl RBC Auto (Bld) [#/Vol] Leukocytes [#/volume] corrected for nucleated erythrocytes in Blood by Automated coun 4.1-10.5 [facility] Lymphocytes Auto (Bld) [#/Vo l]Ordered By: Talib Faustin on 07-26-2024 Lymphocytes (Bld) [#/Vol] Lymphocytes [#/volume] in Blood by Automated count Low 1.00-4.8 [facility] Lymphocytes/100 WBC Auto (Bl d)Ordered By: Talib Faustin on 07-26-2024 Lymphocytes/100 WBC (Bld) Lymphocytes/100 leukocytes in Blood by Automated count . [facility] MCH Auto (RBC) [Entitic mass ]Ordered By: Talib Faustin on 07-26-2024 MCH (RBC) [Entitic mass] MCH [Entitic mass] by Automated count 27.5-35.2 [facility] MCHC Auto (RBC) [Mass/Vol]Or dered By: Talib Faustin on 07-26-2024 MCHC (RBC) [Mass/Vol] MCHC [Mass/volume] by Automated count 32.5-35.6 [facility] MCV Auto (RBC) [Entitic vol] Ordered By: Talib Faustin on 07-26-2024 MCV (RBC) [Entitic vol] MCV [Entitic volume] by Automated count 83.5-101 [facility] Monocytes Auto (Bld) [#/Vol] Ordered By: Talib Faustin on 07-26-2024 Monocytes (Bld) [#/Vol] Automated blood monocyte count 0.0-0.8 [facility] Monocytes/100 WBC Auto (Bld) Ordered By: Talib Faustin on 07-26-2024 Monocytes/100 WBC (Bld) Automated monocyte % . [facility] Neutrophils Auto (Bld) [#/Vo l]Ordered By: Talib Faustin on 07-26-2024 Neutrophils (Bld) [#/Vol] Neutrophils [#/volume] in Blood by Automated count 1.8-7.7 [facility] Neutrophils/100 WBC Auto (Bl d)Ordered By: rick Faustin on 07-26-2024 Neutrophils/100 WBC (Bld) Automated neutrophil % . [facility] No Panel InformationOrdered By: Talib Faustin on 07-26-2024 Estimated GFR (CKD-EPI) > 60.0 mL/Min [facility] Creatinine Clearance (Chem 57.04 [facility] Nucleated erythrocytes [Pres ence] in Blood by Automated countOrdered By: Talib Faustin on 07-26-2024 Nucleated RBC Auto Ql (Bld) Nucleated erythrocytes [Presence] in Blood by Automated count 0-0.5 [facility] Platelet mean volume Auto (B ld) [Entitic vol]Ordered By: Talib Faustin on 07-26-2024 Platelet mean volume (Bld) [Entitic vol] Platelet mean volume [Entitic volume] in Blood by Automated count 6.6-10.1 [facility] Platelets Auto (Bld) [#/Vol] Ordered By: Talib Faustin on 07-26-2024 Platelets (Bld) [#/Vol] Platelets [#/volume] in Blood by Automated count 150-450 [facility] Potassium [Moles/volume] in Serum or PlasmaOrdered By: rick Faustin on 07-26-2024 Potassium [Moles/Vol] Potassium [Moles/v olume] in Serum or Plasma 3.5-5.1 [facility] Protein [Mass/volume] in Ser um or PlasmaOrdered By: Talib Faustin on 07-26-2024 Protein [Mass/Vol] Protein [Mass/volume ] in Serum or Plasma 6.4-8.9 [facility] RBC Auto (Bld) [#/Vol]Ordere d By: Talib Faustin on 07-26-2024 RBC (Bld) [#/Vol] Erythrocytes [#/volu me] in Blood by Automated count Low 3.90-5.60 [facility] Serum or plasma albumin/glob ulin mass ratioOrdered By: Talib Faustin on 07-26-2024 Albumin/Globulin [Mass ratio] Serum or plasma albumin/globulin mass ratio [facility] Serum or plasma anion gap de terminationOrdered By: rick Faustin on 07-26-2024 Anion gap [Moles/Vol] Serum or plasma an ion gap determination 6.0-15.0 [facility] Sodium [Moles/volume] in Ser um or PlasmaOrdered By: rick Faustin on 07-26-2024 Sodium [Moles/Vol] Sodium [Moles/volume ] in Serum or Plasma 136-145 [facility] Urea nitrogen [Mass/volume] in Serum or PlasmaOrdered By: Talib Faustin on 07-26-2024 Urea nitrogen [Mass/Vol] Urea nitrogen [Mass/volume] in Serum or Plasma High 7-25 [facility] WBC Auto (Bld) [#/Vol]Ordere d By: Talib Faustin on 07-26-2024 WBC (Bld) [#/Vol] Leukocytes [#/volume ] in Blood by Automated count 4.1-10.5 [facility] Complete Blood Count Auto Di ffon 07-19-2024 Basophils (Bld) [#/Vol] 0.0 10*3/uL Normal 0.0-0.2 [facility] Comment on above: Result Comment: PERF ORMED BY: [place] [address] PATHOLOGIST SERVICES HOST HBEER SHANNON M.D. Performed By: #### Adrian G, CMP, CBC #### [facility] [address] [place] [address] [place] Performed By: #### M G, SCAN CBC, CMP #### [facility] [address] [place] [address] [place] Basophils/100 WBC (Bld) 0.5 % Normal . [facility] Comment on above: Performed By: #### M G, CMP, CBC #### [address] Performed By: #### M G, SCAN CBC, CMP #### [address] Eosinophils (Bld) [#/Vol] 0.1 10*3/uL Normal 0.0-0.45 [facility] Comment on above: Performed By: #### M G, CMP, CBC #### [address] Performed By: #### M G, SCAN CBC, CMP #### [address] Eosinophils/100 WBC (Bld) 1.4 % Normal . [facility] Comment on above: Performed By: #### M G, CMP, CBC #### [address] Performed By: #### M G, SCAN CBC, CMP #### [address] Erythrocyte distribution width (RBC) [Ratio] 13.4 % Normal 12.0-14.8 [facility] Comment on above: Performed By: #### M G, CMP, CBC #### [address] Performed By: #### M G, SCAN CBC, CMP #### [address] Hematocrit (Bld) [Volume fraction] 35.7 % Low 38.8-50.0 [facility] Comment on above: Performed By: #### M G, CMP, CBC #### [address] Performed By: #### M G, SCAN CBC, CMP #### [address] Hemoglobin (Bld) [Mass/Vol] 12.0 g/dL Low 13.0-17.0 [facility] Comment on above: Performed By: #### M G, CMP, CBC #### [address] Performed By: #### M G, SCAN CBC, CMP #### [address] Lymphocytes (Bld) [#/Vol] 1.3 10*3/uL Normal 1.00-4.8 [facility] Comment on above: Performed By: #### M G, CMP, CBC #### [address] Performed By: #### M G, SCAN CBC, CMP #### [address] Lymphocytes/100 WBC (Bld) 11.6 % Normal . [facility] Comment on above: Performed By: #### M G, CMP, CBC #### [address] Performed By: #### M G, SCAN CBC, CMP #### [address] MCH (RBC) [Entitic mass] 30.7 pg Normal 27.5-35.2 [facility] Comment on above: Performed By: #### M G, CMP, CBC #### [address] Performed By: #### M G, SCAN CBC, CMP #### [address] MCV (RBC) [Entitic vol] 91.3 fL Normal 83.5-101 [facility] Comment on above: Performed By: #### M G, CMP, CBC #### [address] Performed By: #### M G, SCAN CBC, CMP #### [address] Mean Corpuscular HGB Conc 33.7 g/dL Normal 32.5-35.6 [facility] Comment on above: Performed By: #### M G, CMP, CBC #### [address] Performed By: #### M G, SCAN CBC, CMP #### [address] Monocytes (Bld) [#/Vol] 0.8 10*3/uL Normal 0.0-0.8 [facility] Comment on above: Performed By: #### M G, CMP, CBC #### [address] Performed By: #### M G, SCAN CBC, CMP #### [address] Monocytes/100 WBC (Bld) 7.4 % Normal . [facility] Comment on above: Performed By: #### M G, CMP, CBC #### [address] Performed By: #### M G, SCAN CBC, CMP #### [address] Neutrophils (Bld) [#/Vol] 8.7 10*3/uL High 1.8-7.7 [facility] Comment on above: Performed By: #### M G, CMP, CBC #### [address] Performed By: #### M G, SCAN CBC, CMP #### [address] Neutrophils/100 WBC (Bld) 79.1 % Normal . [facility] Comment on above: Performed By: #### M G, CMP, CBC #### [address] Performed By: #### M G, SCAN CBC, CMP #### [address] NRBC% 0.1 /100{WBC} Normal 0-0.5 [facility] Comment on above: Performed By: #### M G, CMP, CBC #### [address] Performed By: #### M G, SCAN CBC, CMP #### [address] Platelet mean volume (Bld) [Entitic vol] 7.9 fL Normal 6.6-10.1 [facility] Comment on above: Performed By: #### M G, CMP, CBC #### [address] Performed By: #### M G, SCAN CBC, CMP #### [address] Platelets (Bld) [#/Vol] 179 10*3/uL Normal 150-450 [facility] Comment on above: Performed By: #### M G, CMP, CBC #### [address] Performed By: #### M G, SCAN CBC, CMP #### [address] RBC (Bld) [#/Vol] 3.91 10*6/uL Normal 3.90-5.60 [facility] Comment on above: Performed By: #### M G, CMP, CBC #### [address] Performed By: #### M G, SCAN CBC, CMP #### [address] WBC (Bld) [#/Vol] 11.0 10*3/uL High 4.1-10.5 [facility] Comment on above: Performed By: #### M G, CMP, CBC #### [address] Performed By: #### M G, SCAN CBC, CMP #### [address] Comprehensive Metabolic Pane obdulio 07-19-2024 Albumin [Mass/Vol] 3.8 g/dL Normal 3.5-5.7 [facility] Comment on above: Performed By: #### M G, CMP, CBC #### [facility] [address] [place] [address] Performed By: #### U A #### [address] Albumin/Globulin [Mass ratio] 1.5 {ratio} Normal [facility] Comment on above: Performed By: #### M G, CMP, CBC #### [address] Performed By: #### U A #### [address] ALP [Catalytic activity/Vol] 84 U/L Normal 34-104 [facility] Comment on above: Performed By: #### M G, CMP, CBC #### [facility] [address] [place] [address] Performed By: #### U A #### [address] ALT [Catalytic activity/Vol] 12 U/L Normal 7-52 [facility] Comment on above: Performed By: #### M G, CMP, CBC #### [address] Performed By: #### U A #### [address] Anion gap [Moles/Vol] 10.1 mmol/L Normal 6.0-15.0 [facility] Comment on above: Performed By: #### M G, CMP, CBC #### [facility] [address] [place] [address] Performed By: #### U A #### [address] AST [Catalytic activity/Vol] 11 U/L Low 13-39 [facility] Comment on above: Performed By: #### M G, CMP, CBC #### [address] Performed By: #### U A #### [facility] [address] [place] [address] Bilirubin [Mass/Vol] 0.6 mg/dL Normal 0.3-1.0 [facility] Comment on above: Performed By: #### M G, CMP, CBC #### [facility] [address] [place] [address] Performed By: #### U A #### [address] Calcium [Mass/Vol] 9.2 mg/dL Normal 8.6-10.3 [facility] Comment on above: Performed By: #### Adrian Da Silva, CMP, CBC #### [address] Performed By: #### U A #### [address] Chloride [Moles/Vol] 107 mmol/L Normal 98-107 [facility] Comment on above: Performed By: #### M G, CMP, CBC #### [facility] [address] [place] [address] Performed By: #### U A #### [address] CO2 [Moles/Vol] 25.1 mmol/L Normal 21.0-31.0 [facility] Comment on above: Performed By: #### M G, CMP, CBC #### [facility] [address] [place] [address] Performed By: #### U A #### [address] Creatinine [Mass/Vol] 0.95 mg/dL Normal 0.70-1.30 [facility] Comment on above: Performed By: #### M G, CMP, CBC #### [facility] [address] [place] [address] Performed By: #### U A #### [facility] [address] [place] [address] Creatinine Clr Calc Pharmacy 56.56 Normal [facility] Comment on above: Performed By: #### M G, CMP, CBC #### [address] Performed By: #### U A #### [address] GFR/1.73 sq M.predicted MDRD (S/P/Bld) [Vol rate/Area] mL/min/{1.73_m2} Normal [facility] Comment on above: Performed By: #### M G, CMP, CBC #### [address] Performed By: #### U A #### [address] Globulin (S) [Mass/Vol] 2.6 g/dL Normal [facility] Comment on above: Performed By: #### M G, CMP, CBC #### [address] Performed By: #### U A #### [address] Glucose [Mass/Vol] 115 mg/dL High 70-100 [facility] Comment on above: Result Comment: [place] Glucose Reference Range is dependent on time and content of last meal. Glucose of more than 200 mg/dL in a nonstressed, ambulatory subject supports the diagnosis of Diabetes Mellitus. ADA recommended reference range Performed By: #### M G, CMP, CBC #### [address] Performed By: #### U A #### [address] Potassium [Moles/Vol] 4.2 mmol/L Normal 3.5-5.1 [facility] Comment on above: Performed By: #### M G, CMP, CBC #### [address] Performed By: #### U A #### [address] Protein [Mass/Vol] 6.4 g/dL Normal 6.4-8.9 [facility] Comment on above: Performed By: #### M G, CMP, CBC #### [address] Performed By: #### U A #### [address] Sodium [Moles/Vol] 138 mmol/L Normal 136-145 [facility] Comment on above: Performed By: #### M G, CMP, CBC #### [facility] [address] [place] [address] Performed By: #### U A #### [address] Urea nitrogen [Mass/Vol] 30 mg/dL High 7-25 [facility] Comment on above: Performed By: #### M G, CMP, CBC #### [facility] [address] [place] [address] Performed By: #### U A #### [address] Magnesiumon 07-19-2024 Magnesium [Mass/Vol] 1.8 mg/dL Low 1.9-2.7 [facility] Comment on above: Result Comment: PERF ORMED BY: [place] [address] PATHOLOGIST SERVICES HOST HEBER SHANNON M.D. Performed By: #### M G, CMP, CBC #### [facility] [address] [place] [address] Performed By: #### U A #### [address] Magnesium [Mass/volume] in S stephanie or PlasmaOrdered By: Talib Faustin on 07-19-2024 Magnesium [Mass/Vol] Magnesium [Mass/vol ume] in Serum or Plasma Low 1.9-2.7 [facility] Office Visiton 07-19-2024 Follow-up visit [id number] Yaritza Bennett magy P 1940 M Date Provider Department Center 07/19/2024 BOY SON Nicolette Hos Family History Problem Relation Age of Onset Coronary artery disease Mother Kidney disease Mother Heart failure Mother Family Status - Relation Status Age at Mother Level of Service:71430 [place] POSTOP FOLLOW UP VISIT RELATED TO ORIGINAL PX Normal [facility] GLUCOSE POCT GLUCOMETERSon 0 07-17-2024 COMMEMT1 Glu2: Cleaned Meter [facility] Eco-Site Glucose [Mass/Vol] 107 mg/dL [facility] Comment on above: Random Glucose Refer ence Range is dependent on time and content of last meal. Glucose of more than 200 mg/dL in a nonstressed, ambulatory subject supports the diagnosis of Diabetes Mellitus. [facility] Glucose Glucometer (BldC) [M ass/Vol]Ordered By: Matteo Melo on 07-17-2024 Glucose [Mass/Vol] Capillary blood gluc ose measurement by glucometer (mass/volume) [facility] Comment on above: Random Glucose Refer ence Range is dependent on time and content of last meal. Glucose of more than 200 mg/dL in a nonstressed, ambulatory subject supports the diagnosis of Diabetes Mellitus. Glucose Poct Glucometerson 0 07-17-2024 Commemt1 Glu2: Cleaned Meter Normal [facility] Comment on above: Result Comment: PERF ORMED BY: [place] [address] PATHOLOGIST SERVICES HOST HEBER SHANNON M.D. Performed By: #### G LULS #### Point of Care testing , Performed By: #### E SR #### [facility] [address] [place] [address] Glucose [Mass/Vol] 107 mg/dL Normal [facility] Comment on above: Result Comment: [place] Glucose Reference Range is dependent on time and content of last meal. Glucose of more than 200 mg/dL in a nonstressed, ambulatory subject supports the diagnosis of Diabetes Mellitus. Performed By: #### G LULS #### Point of Care testing , Performed By: #### E SR #### [place] [id number] [facility] No Panel InformationOrdered By: Matteo Melo on 07-17-2024 Bedside Glucose Comment Glu2: cleaned meter [facility] X-ray reportOrdered By: Bruno Urias on 07-17-2024 Study report [facility] [place] [address] XRay Report Signed Patient: Jeremie Bennett MR#: [id number] : 1940 Acct:[id number] Age/Sex: 83 / M ADM Date: 5 Loc: [place] Room: Type: [facility] Attending Dr: Matteo Melo MD Copies [...] Urias Jr., D.O.07/17/2024 2:07 PM Dictation Location: [facility] Transcribed By: [facility] 07/17/24 1407 Dictated By: Mario Urias Jr, DO 07/17/24 1407 Signed By: 07/17/[address] [facility] XR chest 1V portableon 07-17 XR chest 1V portable [facility] [address] [place] [id number] XRay Report Signed Patient: Jeremie Bennett MR#: [id number] : 1940 Acct:[id number] Age/Sex: 83 / M ADM Date: 07/17/24 Loc: [place] Room: Type: [facility] Attending Dr: Matteo Melo MD Copies to: Matteo eMlo MD Ordering Provider: Matteo Melo MD Date [...] 07/17/241406 Signed By: 07/17/24 140 Normal [facility] XR chest 1V portable [facility] [place] [address] XRay Report Signed Patient: Jeremie Bennett MR#: [id number] : 1940 Acct:[id number] Age/Sex: 83 / M ADM Date: 07/17/24 Loc: [place] Room: Type: [facility] Attending Dr: Matteo Melo MD Copies to: [...] DO 07/17/241406 Signed By: 07/17/241406 Normal [facility] Alanine aminotransferase [En zymatic activity/volume] in Serum or PlasmaOrdered By: Talib Faustin on 07-12-2024 ALT [Catalytic activity/Vol] Alanine aminotransferase [Enzymatic activity/volume] in Serum or Plasma 7-52 [facility] Albumin [Mass/volume] in Ser um or Plasma by Bromocresol green (BCG) dye binding methoOrdered By: Talib Faustin on 07-12-2024 Albumin BCG dye [Mass/Vol] Albumin [Mass/volume] in Serum or Plasma by Bromocresol green (BCG) dye binding metho 3.5-5.7 [facility] Alkaline phosphatase [Enzyma tic activity/volume] in Serum or PlasmaOrdered By: Talib Faustin on 07-12-2024 ALP [Catalytic activity/Vol] Alkaline phosphatase [Enzymatic activity/volume] in Serum or Plasma 34-104 [facility] Aspartate aminotransferase [ Enzymatic activity/volume] in Serum or PlasmaOrdered By: Talib Faustin on 07-12-2024 AST [Catalytic activity/Vol] Aspartate aminotransferase [Enzymatic activity/volume] in Serum or Plasma Low 13-39 [facility] Basophils Auto (Bld) [#/Vol] Ordered By: Talib Faustin on 07-12-2024 Basophils (Bld) [#/Vol] Automated basophil count 0.0-0.2 [facility] Basophils/100 WBC Auto (Bld) Ordered By: Talib Faustin on 07-12-2024 Basophils/100 WBC (Bld) Automated basophil % . [facility] Bilirubin.total [Mass/volume ] in Serum or PlasmaOrdered By: Talib Faustin on 07-12-2024 Bilirubin [Mass/Vol] Bilirubin.total [Mass/volume] in Serum or Plasma 0.3-1.0 [facility] Calcium [Mass/volume] in Ser um or PlasmaOrdered By: Talib Faustin on 07-12-2024 Calcium [Mass/Vol] Calcium [Mass/volume ] in Serum or Plasma 8.6-10.3 [facility] Carbon dioxide, total [Moles /volume] in Serum or PlasmaOrdered By: Talib Hargrove on 07-12-2024 CO2 [Moles/Vol] Carbon dioxide, tota l [Moles/volume] in Serum or Plasma 21.0-31.0 [facility] Chloride [Moles/volume] in S stephanie or PlasmaOrdered By: Talib Faustin on 07-12-2024 Chloride [Moles/Vol] Chloride [Moles/vol ume] in Serum or Plasma 98-107 [facility] Complete Blood Count Auto Di ffon 07-12-2024 Basophils (Bld) [#/Vol] 0.0 10*3/uL Normal 0.0-0.2 [facility] Comment on above: Result Comment: PERF ORMED BY: [place] [address] PATHOLOGIST SERVICES HOST HEBER SHANNON M.D. Performed By: #### C BC, CMP, MG #### [address] Performed By: #### U A #### [address] Basophils/100 WBC (Bld) 0.3 % Normal . [facility] Comment on above: Performed By: #### C BC, CMP, MG #### [address] Performed By: #### U A #### [address] Eosinophils (Bld) [#/Vol] 0.2 10*3/uL Normal 0.0-0.45 [facility] Comment on above: Performed By: #### C BC, CMP, MG #### [address] Performed By: #### U A #### [address] Eosinophils/100 WBC (Bld) 1.7 % Normal . [facility] Comment on above: Performed By: #### C BC, CMP, MG #### [address] Performed By: #### U A #### [address] Erythrocyte distribution width (RBC) [Ratio] 13.7 % Normal 12.0-14.8 [facility] Comment on above: Performed By: #### C BC, CMP, MG #### [address] Performed By: #### U A #### [address] Hematocrit (Bld) [Volume fraction] 38.0 % Low 38.8-50.0 [facility] Comment on above: Performed By: #### C BC, CMP, MG #### [address] Performed By: #### U A #### [address] Hemoglobin (Bld) [Mass/Vol] 12.6 g/dL Low 13.0-17.0 [facility] Comment on above: Performed By: #### C BC, CMP, MG #### [address] Performed By: #### U A #### [address] Lymphocytes (Bld) [#/Vol] 2.0 10*3/uL Normal 1.00-4.8 [facility] Comment on above: Performed By: #### C BC, CMP, MG #### [address] Performed By: #### U A #### [address] Lymphocytes/100 WBC (Bld) 19.2 % Normal . [facility] Comment on above: Performed By: #### C BC, CMP, MG #### [address] Performed By: #### U A #### [address] MCH (RBC) [Entitic mass] 30.7 pg Normal 27.5-35.2 [facility] Comment on above: Performed By: #### C BC, CMP, MG #### [address] Performed By: #### U A #### [address] MCV (RBC) [Entitic vol] 92.2 fL Normal 83.5-101 [facility] Comment on above: Performed By: #### C BC, CMP, MG #### [address] Performed By: #### U A #### [address] Mean Corpuscular HGB Conc 33.3 g/dL Normal 32.5-35.6 [facility] Comment on above: Performed By: #### C BC, CMP, MG #### [address] Performed By: #### U A #### [address] Monocytes (Bld) [#/Vol] 0.8 10*3/uL Normal 0.0-0.8 [facility] Comment on above: Performed By: #### C BC, CMP, MG #### [address] Performed By: #### U A #### [address] Monocytes/100 WBC (Bld) 7.5 % Normal . [facility] Comment on above: Performed By: #### C BC, CMP, MG #### [address] Performed By: #### U A #### [address] Neutrophils (Bld) [#/Vol] 7.3 10*3/uL Normal 1.8-7.7 [facility] Comment on above: Performed By: #### C BC, CMP, MG #### [address] [address] [place] Performed By: #### U A #### [address] Neutrophils/100 WBC (Bld) 71.3 % Normal . [facility] Comment on above: Performed By: #### C BC, CMP, MG #### [facility] [address] [place] [address] Performed By: #### U A #### [address] NRBC% 0.1 /100{WBC} Normal 0-0.5 [facility] Comment on above: Performed By: #### C BC, CMP, MG #### [address] Performed By: #### U A #### [address] Platelet mean volume (Bld) [Entitic vol] 9.0 fL Normal 6.6-10.1 [facility] Comment on above: Performed By: #### C BC, CMP, MG #### [facility] [address] [place] [address] Performed By: #### U A #### [address] Platelets (Bld) [#/Vol] 197 10*3/uL Normal 150-450 [facility] Comment on above: Performed By: #### C BC, CMP, MG #### [facility] [address] [place] [address] Performed By: #### U A #### [address] RBC (Bld) [#/Vol] 4.12 10*6/uL Normal 3.90-5.60 [facility] Comment on above: Performed By: #### C BC, CMP, MG #### [facility] [address] [place] [address] Performed By: #### U A #### [place] [id number] [place] WBC (Bld) [#/Vol] 10.2 10*3/uL Normal 4.1-10.5 [facility] Comment on above: Performed By: #### C BC, CMP, MG #### [address] Performed By: #### U A #### [address] Comprehensive Metabolic Pane obdulio 07-12-2024 Albumin [Mass/Vol] 3.9 g/dL Normal 3.5-5.7 [facility] Comment on above: Performed By: #### C BC, BMP #### [address] Performed By: #### U A #### [address] Albumin/Globulin [Mass ratio] 1.6 {ratio} Normal [facility] Comment on above: Performed By: #### C BC, BMP #### [address] Performed By: #### U A #### [address] ALP [Catalytic activity/Vol] 86 U/L Normal 34-104 [facility] Comment on above: Performed By: #### C BC, BMP #### [address] Performed By: #### U A #### [address] ALT [Catalytic activity/Vol] 15 U/L Normal 7-52 [facility] Comment on above: Performed By: #### C BC, BMP #### [address] Performed By: #### U A #### [address] Anion gap [Moles/Vol] 12.2 mmol/L Normal 6.0-15.0 [facility] Comment on above: Performed By: #### C BC, BMP #### [facility] [address] [place] [address] Performed By: #### U A #### [address] AST [Catalytic activity/Vol] 11 U/L Low 13-39 [facility] Comment on above: Performed By: #### C BC, BMP #### [facility] [address] [place] [address] Performed By: #### U A #### [address] Bilirubin [Mass/Vol] 0.7 mg/dL Normal 0.3-1.0 [facility] Comment on above: Performed By: #### C BC, BMP #### [address] Performed By: #### U A #### [address] Calcium [Mass/Vol] 9.0 mg/dL Normal 8.6-10.3 [facility] Comment on above: Performed By: #### C BC, BMP #### [facility] [address] [place] [address] Performed By: #### U A #### [address] Chloride [Moles/Vol] 102 mmol/L Normal 98-107 [facility] Comment on above: Performed By: #### C BC, BMP #### [address] Performed By: #### U A #### [address] CO2 [Moles/Vol] 27.6 mmol/L Normal 21.0-31.0 [facility] Comment on above: Performed By: #### C BC, BMP #### [facility] [address] [place] [address] Performed By: #### U A #### [place] [address] Creatinine [Mass/Vol] 1.01 mg/dL Normal 0.70-1.30 [facility] Comment on above: Performed By: #### C BC, BMP #### [address] Performed By: #### U A #### [address] Creatinine Clr Calc Pharmacy 53.09 Normal [facility] Comment on above: Performed By: #### C BC, BMP #### [address] Performed By: #### U A #### [address] GFR/1.73 sq M.predicted MDRD (S/P/Bld) [Vol rate/Area] mL/min/{1.73_m2} Normal [facility] Comment on above: Performed By: #### C FREDDY, BMP #### [address] Performed By: #### U A #### [address] Globulin (S) [Mass/Vol] 2.5 g/dL Normal [facility] Comment on above: Performed By: #### C BC, BMP #### [address] Performed By: #### U A #### [address] Glucose [Mass/Vol] 120 mg/dL High 70-100 [facility] Comment on above: Result Comment: [place] Glucose Reference Range is dependent on time and content of last meal. Glucose of more than 200 mg/dL in a nonstressed, ambulatory subject supports the diagnosis of Diabetes Mellitus. ADA recommended reference range Performed By: #### C BC, BMP #### [address] Performed By: #### U A #### [address] [address] [place] Potassium [Moles/Vol] 4.8 mmol/L Normal 3.5-5.1 [facility] Comment on above: Performed By: #### C BC, BMP #### [address] Performed By: #### U A #### [address] Protein [Mass/Vol] 6.4 g/dL Normal 6.4-8.9 [facility] Comment on above: Performed By: #### C BC, BMP #### [address] Performed By: #### U A #### [address] Sodium [Moles/Vol] 137 mmol/L Normal 136-145 [facility] Comment on above: Performed By: #### C BC, BMP #### [address] Performed By: #### U A #### [address] Urea nitrogen [Mass/Vol] 26 mg/dL High 7-25 [facility] Comment on above: Performed By: #### C BC, BMP #### [facility] [address] [place] [address] Performed By: #### U A #### [address] Creatinine [Mass/volume] in Serum or PlasmaOrdered By: Talib Faustin on 07-12-2024 Creatinine [Mass/Vol] Creatinine [Mass/v olume] in Serum or Plasma 0.70-1.30 [facility] Eosinophils Auto (Bld) [#/Vo l]Ordered By: Talib Faustin on 07-12-2024 Eosinophils (Bld) [#/Vol] Automated eosinophil count 0.0-0.45 [facility] Eosinophils/100 WBC Auto (Bl d)Ordered By: Talib Faustin on 07-12-2024 Eosinophils/100 WBC (Bld) Automated eosinophil % . [facility] Erythrocyte distribution wid th Auto (RBC) [Ratio]Ordered By: Talib Faustin on 07-12-2024 Erythrocyte distribution width (RBC) [Ratio] Erythrocyte distribution width [Ratio] by Automated count 12.0-14.8 [facility] Globulin Calc (S) [Mass/Vol] Ordered By: Talib Faustin on 07-12-2024 Globulin (S) [Mass/Vol] Serum globulin measurement by calculation (mass/volume) [facility] Glucose [Mass/volume] in Ser um or PlasmaOrdered By: Talib Faustin on 07-12-2024 Glucose [Mass/Vol] Glucose [Mass/volume ] in Serum or Plasma High 70-100 [facility] Comment on above: ADA recommended refe rence rangeRandom Glucose Reference Range is dependent on time and content of last meal. Glucose of more than 200 mg/dL in a nonstressed, ambulatory subject supports the diagnosis of Diabetes Mellitus. Hematocrit Auto (Bld) [Volum e fraction]Ordered By: Talib Faustin on 07-12-2024 Hematocrit (Bld) [Volume fraction] Hematocrit [Volume Fraction] of Blood by Automated count Low 38.8-50.0 [facility] Hemoglobin [Mass/volume] in BloodOrdered By: Talib Faustin on 07-12-2024 Hemoglobin (Bld) [Mass/Vol] Hemoglobin [Mass/volume] in Blood Low 13.0-17.0 [facility] Leukocytes [#/volume] correc suzy for nucleated erythrocytes in Blood by Automated counOrdered By: Talib Faustin on 07-12-2024 WBC corrected for nucl RBC Auto (Bld) [#/Vol] Leukocytes [#/volume] corrected for nucleated erythrocytes in Blood by Automated coun 4.1-10.5 [facility] Lymphocytes Auto (Bld) [#/Vo l]Ordered By: Talib Faustin on 07-12-2024 Lymphocytes (Bld) [#/Vol] Lymphocytes [#/volume] in Blood by Automated count 1.00-4.8 [facility] Lymphocytes/100 WBC Auto (Bl d)Ordered By: Talib Faustin on 07-12-2024 Lymphocytes/100 WBC (Bld) Lymphocytes/100 leukocytes in Blood by Automated count . [facility] MCH Auto (RBC) [Entitic mass ]Ordered By: Talib Faustin on 07-12-2024 MCH (RBC) [Entitic mass] MCH [Entitic mass] by Automated count 27.5-35.2 [facility] MCHC Auto (RBC) [Mass/Vol]Or dered By: Talib Faustin on 07-12-2024 MCHC (RBC) [Mass/Vol] MCHC [Mass/volume] by Automated count 32.5-35.6 [facility] MCV Auto (RBC) [Entitic vol] Ordered By: Talib Faustin on 07-12-2024 MCV (RBC) [Entitic vol] MCV [Entitic volume] by Automated count 83.5-101 [facility] Magnesiumon 07-12-2024 Magnesium [Mass/Vol] 1.9 mg/dL Normal 1.9-2.7 [facility] Comment on above: Result Comment: PERF ORMED BY: [place] [address] PATHOLOGIST SERVICES HOST HEBER SHANNON M.D. Performed By: #### C BC, BMP #### [facility] [address] [place] [address] Performed By: #### U A #### [facility] [address] [place] [address] Magnesium [Mass/volume] in S stephanie or PlasmaOrdered By: Talib Faustin on 07-12-2024 Magnesium [Mass/Vol] Magnesium [Mass/vol ume] in Serum or Plasma 1.9-2.7 [facility] Monocytes Auto (Bld) [#/Vol] Ordered By: Talib Faustin on 07-12-2024 Monocytes (Bld) [#/Vol] Automated blood monocyte count 0.0-0.8 [facility] Monocytes/100 WBC Auto (Bld) Ordered By: Talib Faustin on 07-12-2024 Monocytes/100 WBC (Bld) Automated monocyte % . [facility] Neutrophils Auto (Bld) [#/Vo l]Ordered By: Talib Faustin on 07-12-2024 Neutrophils (Bld) [#/Vol] Neutrophils [#/volume] in Blood by Automated count 1.8-7.7 [facility] Neutrophils/100 WBC Auto (Bl d)Ordered By: Talib Faustin on 07-12-2024 Neutrophils/100 WBC (Bld) Automated neutrophil % . [facility] No Panel InformationOrdered By: Talib Faustin on 07-12-2024 Estimated GFR (CKD-EPI) > 60.0 mL/Min [facility] Creatinine Clearance (Chem 53.09 [facility] Nucleated erythrocytes [Pres ence] in Blood by Automated countOrdered By: Talib Faustin on 07-12-2024 Nucleated RBC Auto Ql (Bld) Nucleated erythrocytes [Presence] in Blood by Automated count 0-0.5 [facility] Platelet mean volume Auto (B ld) [Entitic vol]Ordered By: Talib Faustin on 07-12-2024 Platelet mean volume (Bld) [Entitic vol] Platelet mean volume [Entitic volume] in Blood by Automated count 6.6-10.1 [facility] Platelets Auto (Bld) [#/Vol] Ordered By: Talib Faustin on 07-12-2024 Platelets (Bld) [#/Vol] Platelets [#/volume] in Blood by Automated count 150-450 [facility] Potassium [Moles/volume] in Serum or PlasmaOrdered By: Talib Faustin on 07-12-2024 Potassium [Moles/Vol] Potassium [Moles/v olume] in Serum or Plasma 3.5-5.1 [facility] Protein [Mass/volume] in Ser um or PlasmaOrdered By: Talib Faustin on 07-12-2024 Protein [Mass/Vol] Protein [Mass/volume ] in Serum or Plasma 6.4-8.9 [facility] RBC Auto (Bld) [#/Vol]Ordere d By: Talib Faustin on 07-12-2024 RBC (Bld) [#/Vol] Erythrocytes [#/volu me] in Blood by Automated count 3.90-5.60 [facility] Serum or plasma albumin/glob ulin mass ratioOrdered By: rick Lamasethan on 07-12-2024 Albumin/Globulin [Mass ratio] Serum or plasma albumin/globulin mass ratio [facility] Serum or plasma anion gap de terminationOrdered By: rick LamasDelvin on 07-12-2024 Anion gap [Moles/Vol] Serum or plasma an ion gap determination 6.0-15.0 [facility] Sodium [Moles/volume] in Ser um or PlasmaOrdered By: rick ethan on 07-12-2024 Sodium [Moles/Vol] Sodium [Moles/volume ] in Serum or Plasma 136-145 [facility] Urea nitrogen [Mass/volume] in Serum or PlasmaOrdered By: rick ethan on 07-12-2024 Urea nitrogen [Mass/Vol] Urea nitrogen [Mass/volume] in Serum or Plasma High 7-25 [facility] WBC Auto (Bld) [#/Vol]Ordere d By: rick ethan on 07-12-2024 WBC (Bld) [#/Vol] Leukocytes [#/volume ] in Blood by Automated count 4.1-10.5 [facility] ANESon 07-10-2024 ANES ----- ----- Attestation signed [...] Procedure: PPM generator change - dual Location: [facility] DIRECTOR OF KNOWLEDGE MANAGEMENT 1 EP / [facility] (Cath) Providers: Stacey Brunner MD Clinical information reviewed: [employer] Meds Physical Exam Airway Mallampati: III Cardiovascular Rhythm: regular Rate: normal (-) murmur Dental Pulmonary (-) decreased breath sounds Abdominal (+) obese Anesthesia Plan ASA 3 other (Conscious Sedation) intravenous induction Anesthetic plan and risks discussed with patient. Use of blood products discussed with patient who consented to blood products. Plan discussed with attending. Additional Equipment Requests Normal [facility] HPon 07-10-2024 ----- ----- Attestation signed [...] an additional personal documentation from me. ----- PR Electrophysiology Consult Note PR Cardiology Reason for visit: gen change 07/10/2024 [...] Heart valve disease Hyperlipidemia VT (ventricular tachycardia) ([facility]) PSH: Surgical History Past Surgical History: Procedure Laterality Date ABLATION OF DYSRHYTHMIC FOCUS CARDIAC CATHETERIZATION INSERT / REPLACE / REMOVE PACEMAKER SH: Social Determinants of Health Tobacco Use: Medium Risk (05/11/2024) Received from [facility] Patient History Smoking Tobacco Use: Former Smokeless Tobacco Use: Former Passive Exposure: Not on file Alcohol Use: Not on file Financial Resource Strain: Not on file Food Insecurity: Not on file Transportation Needs: Not on file Physical Activity: Not on file Stress: Not on file Social Connections: Not on file Intimate Partner Violence: Unknown (07/08/2023) PR Safety & Environment Fear of Current or Ex-Partner: Not on file Emotionally Abused: Not on file Physically Abused: Not on file Sexually Abused: Not on file Physically or Sexually Abused: Not on file Depression: Not at risk (04/07/2024) Received from [facility] PHQ-2 Patient Health Questionnaire-2 Score: 0 [...] no b (more content not included)... Normal [facility] NURSNOTEon 07-10-2024 NURSNOTE RN educated pt [...] off of unit with all of belongings. [facility] NURSNOTE CHG wipes and betadi ne nasal swabs completed. [facility] Orders Onlyon 07-10-2024 Orders Only [id number] Yar[address] P 1940 M Date Provider Department Center 07/10/2024 ELIF GONZALEZ [facility] PR HeartVAS Family History Problem Relation Age of Onset Coronary artery disease Mother Kidney disease Mother Heart failure Mother Family Status - Relation Status Age at Mother [facility] CBC w/ Auto DiffOrdered By: SYSTEM SYSTEM on 07-03-2024 Band form neutrophils/100 WBC (Bld) 8.0 % High 0.0-6.0 Rem[facility] Heme Comment on above: Performed By: #### 2 [id number] #### [facility] [address] [place] [address] Basophils (Bld) [#/Vol] 0.0 E9/L Normal 0.0-0.2 Remisol Heme Comment on above: Performed By: #### 2 [id number] #### [facility] [address] [place] [address] Eosinophils (Bld) [#/Vol] 0.0 E9/L Normal 0.0-0.5 [facility] Heme Comment on above: Performed By: #### 2 [id number] #### [facility] [address] [place] [address] Eosinophils/100 WBC (Bld) 0.0 % Normal 0.0-8.0 [facility] Heme Comment on above: Performed By: #### 2 [id number] #### [facility] [address] [place] [address] Erythrocyte distribution width (RBC) [Ratio] 13.9 % Normal 10.9-14.2 [facility] Heme Comment on above: Performed By: #### 2 [id number] #### [facility] [address] [place] [address] Hematocrit (Bld) [Volume fraction] 39.7 % Normal 37.7-49.0 [facility] Heme Comment on above: Performed By: #### 2 970789 #### [facility] [address] [place] [address] Hemoglobin (Bld) [Mass/Vol] 13.3 g/dL Low 13.5-17.5 Rem[facility] Heme Comment on above: Performed By: #### 2 [id number] #### [facility] [address] [place] [address] Lymphocytes (Bld) [#/Vol] 2.2 E9/L Normal 1.0-4.0 [facility] Heme Comment on above: Performed By: #### 2 [id number] #### [facility] [address] [place] [address] Lymphocytes/100 WBC (Bld) 20.0 % Normal 14.0-50.0 [facility] Heme Comment on above: Performed By: #### 2 [id number] #### [facility] [address] [place] [address] MCH (RBC) [Entitic mass] 31.3 pg Normal 27.0-34.0 Remisol Heme Comment on above: Performed By: #### 2 [id number] #### [facility] [address] [place] [address] MCHC (RBC) [Mass/Vol] 33.4 g/dL Normal 31.4-36.0 Rem isol Heme Comment on above: Performed By: #### 2 826159 #### [facility] [address] [place] [address] MCV (RBC) [Entitic vol] 93.5 fL Normal 80.0-100.0 Remisol Heme Comment on above: Performed By: #### 2 593241 #### [facility] [address] [place] [address] Monocytes (Bld) [#/Vol] 0.6 E9/L Normal 0.2-1.0 [facility] Heme Comment on above: Performed By: #### 2 [id number] #### [facility] [address] [place] [address] Myelocytes/100 WBC (Bld) 3.0 % High 0.0-0.0 [facility]isol Heme Comment on above: Performed By: #### 2 642020 #### [facility] [address] [place] [address] Neutrophils (Bld) [#/Vol] 7.4 E9/L Invalid Interpretation Code [facility] Heme Comment on above: Performed By: #### 2 [id number] #### [facility] [address] [place] [address] Platelet 271.0 E9/L Normal 150.0-500. 0 Remisol Heme Comment on above: Performed By: #### 2 084777 #### [facility] [address] [place] [address] Platelet mean volume (Bld) [Entitic vol] 9.2 fL Normal 6.4-10.8 Remisol Heme Comment on above: Performed By: #### 2 388562 #### [facility] [address] [place] [address] RBC (Bld) [#/Vol] 4.2 E12/L Low 4.3-5.9 Remisol Heme Comment on above: Performed By: #### 2 646326 #### [facility] [address] [place] [address] Segmented neutrophils/100 WBC (Bld) 62.0 % Normal 36.0-75.0 Rem[facility] Heme Comment on above: Performed By: #### 2 753608 #### [facility] [address] [place] [address] Variant lymphocytes/100 WBC (Bld) 1.0 % High 0.0-0.0 Rem[facility] Heme Comment on above: Performed By: #### 2 125868 #### [facility] [address] [place] [address] WBC corrected for nucl RBC Auto (Bld) [#/Vol] 10.5 E9/L Normal 4.0-11.0 Remisol H rip Comment on above: Performed By: #### 2 474722 #### [facility] [address] [place] [address] CBC w/ Auto Diffon 5 RBC size Nom (Bld) NORMAL Invalid Interpretation Code [facility] Comment on above: Performed By: #### 2 [id number] #### [facility] [address] [place] [address] CHEMISTRYOrdered By: SYSTEM SYSTEM on 07-03-2024 Albumin/Globulin [...] Comment on above: Performed By: #### 2 566018 #### [facility] [address] [place] [address] Anion gap [Moles/Vol] 10 mmol/L Normal 6-16 Rem isol Chem Comment on above: Performed By: #### 2 423339 #### [facility] [address] [place] [address] Bilirubin [Mass/Vol] 0.3 mg/dL Normal 0.0-1.1 Chris janee Chem Comment on above: Performed By: #### 2 558411 #### [facility] [address] [place] [address] Calcium [Mass/Vol] 9.1 mg/dL Normal 8.9-11.1 Remiso l Chem Comment on above: Performed By: #### 2 621085 #### [facility] [address] [place] [address] Chloride [Moles/Vol] 107 mmol/L Normal 101-111 Chris janee Chem Comment on above: Performed By: #### 2 021386 #### [facility] [address] [place] [address] CO2 [Moles/Vol] 28 mmol/L Normal 21-31 Remisol C hem Comment on above: Performed By: #### 2 659503 #### [facility] [address] [place] [address] Creatinine [Mass/Vol] 1.0 mg/dL Normal 0.5-1.3 Rem isol Chem Comment on above: Performed By: #### 2 742934 #### [facility] [address] [place] [address] Globulin (S) [Mass/Vol] 2.7 g/dL Normal 1.4-4.0 Remisol Chem Comment on above: Performed By: #### 2 602475 #### [facility] [address] [place] [address] Glucose [Mass/Vol] 138 mg/dL Normal 55-199 Remiso l Chem Comment on above: Performed By: #### 2 357418 #### [facility] [address] [place] [address] Potassium [Moles/Vol] 4.5 mmol/L Normal 3.5-5.3 Rem isol Chem Comment on above: Performed By: #### 2 363365 #### [facility] [address] [place] [address] Protein [Mass/Vol] 6.7 g/dL Normal 6.0-7.8 Remiso l Chem Comment on above: Performed By: #### 2 792851 #### [facility] [address] [place] [address] Sodium [Moles/Vol] 140 mmol/L Normal 135-145 Remiso l Chem Comment on above: Performed By: #### 2 189654 #### [facility] [address] [place] [address] Urea nitrogen [Mass/Vol] 20 mg/dL Normal 5-21 Remisol Chem Comment on above: Performed By: #### 2 591943 #### [facility] [address] [place] [address] CMPon 07-03-2024 Albumin/Globulin (S) [Mass conc ratio] 1.5 Normal 1.1-2.2 [facility] Comment on above: Performed By: #### 2 450898 #### [facility] [address] [place] [address] ALP [Catalytic activity/Vol] 70 Int._Unit/L Normal 21-98 [facility] Comment on above: Performed By: #### 2 657616 #### [facility] [address] [place] [address] ALT No additional P-5'-P [Catalytic activity/Vol] 24 Int._Unit/L Normal 6-46 [facility] Comment on above: Performed By: #### 2 547105 #### [facility] [address] [place] [address] AST [Catalytic activity/Vol] 20 Int._Unit/L Normal 5-43 [facility] Comment on above: Performed By: #### 2 364803 #### [facility] [address] [place] [address] Urea nitrogen/Creatinine [Mass ratio] 20 No Units Normal 10-20 [facility] Comment on above: Performed By: #### 2 381833 #### [facility] [address] [place] [address] HEMATOLOGYOrdered By: SYSTEM SYSTEM on 07-03-2024 Basophils/100 [...] Comment on above: Performed By: #### 2 901619 #### [facility] [address] [place] [address] eGFROrdered By: SYSTEM SYSTE M on 07-03-2024 eGFR 74 mL/min/1.73 m2 Normal >=59 Remisol Chem Comment on above: Performed By: #### 1 [id number] #### [facility] [address] [place] [address] 36on 06-28-[address] Arellano pt w as called to schedule cardiac clearance appt. Pt stated he would rather be seen in [place], so I advised pt to call and schedule with them. Normal [facility] No Panel Informationon 06-23 [employer] Audio indicated a mild to severe sensorineural hearing loss 250-8000 Hz, bilaterally. [facility] Basic Metabolic Panelon Anion gap [Moles/Vol] 8.5 mmol/L Normal 6.0-15.0 [facility] Comment on above: Performed By: #### C BC, BMP #### [address] Performed By: #### C MP, CBC #### [place] [address] [place] Calcium [Mass/Vol] 9.0 mg/dL Normal 8.6-10.3 [facility] Comment on above: Result Comment: PERF ORMED BY: [place] [address] PATHOLOGIST SERVICES HOST HEBER SHANNON M.D. Performed By: #### C BC, BMP #### [place] [address] [place] Performed By: #### C MP, CBC #### [facility] [address] [place] [address] [place] Chloride [Moles/Vol] 110 mmol/L High 98-107 [facility] Comment on above: Performed By: #### C BC, BMP #### [address] Performed By: #### C MP, CBC #### [address] CO2 [Moles/Vol] 24.5 mmol/L Normal 21.0-31.0 [facility] Comment on above: Performed By: #### C BC, BMP #### [address] Performed By: #### C MP, CBC #### [address] Creatinine [Mass/Vol] 0.97 mg/dL Normal 0.70-1.30 [facility] Comment on above: Performed By: #### C BC, BMP #### [address] Performed By: #### C MP, CBC #### [address] GFR/1.73 sq M.predicted MDRD (S/P/Bld) [Vol rate/Area] mL/min/{1.73_m2} Normal [facility] Comment on above: Performed By: #### C BC, BMP #### [address] Performed By: #### C MP, CBC #### [address] Glucose [Mass/Vol] 118 mg/dL High 70-100 [facility] Comment on above: Result Comment: [place] om Glucose Reference Range is dependent on time and content of last meal. Glucose of more than 200 mg/dL in a nonstressed, ambulatory subject supports the diagnosis of Diabetes Mellitus. ADA recommended reference range Performed By: #### C BC, BMP #### [address] Performed By: #### C MP, CBC #### [address] Potassium [Moles/Vol] 4.0 mmol/L Normal 3.5-5.1 [facility] Comment on above: Performed By: #### C BC, BMP #### [address] Performed By: #### C MP, CBC #### [facility] [address] Sodium [Moles/Vol] 139 mmol/L Normal 136-145 [facility] Comment on above: Performed By: #### C BC, BMP #### [address] Performed By: #### C MP, CBC #### [address] Urea nitrogen [Mass/Vol] 19 mg/dL Normal 7-25 [facility] Comment on above: Performed By: #### C BC, BMP #### [address] Performed By: #### C MP, CBC #### [address] Basic metabolic 1998 panelon 06-22-2024 Anion gap [Moles/Vol] 8.5 mmol/L 6.0 - 15.0 meq/L [facility] Calcium [Mass/Vol] 9 mg/dL 8.6 - 10. 3 mg/dL [facility] Chloride [Moles/Vol] 110 mmol/L High 98 - 10 7 mmol/L [facility] CO2 [Moles/Vol] 24.5 mmol/L 21.0 - 31.0 mmol/L [facility] Creatinine (U) [Mass/Vol] 0.97 mg/dL 0.70 - 1.30 mg/dL [facility] ESTIMATED GFR mL/Min [facility] Glucose [Mass/Vol] 118 mg/dL High 70 - 100 mg/dL [facility] Comment on above: Random Glucose Refer ence Range is dependent on time and content of last meal. Glucose of more than 200 mg/dL in a nonstressed, ambulatory subject supports the diagnosis of Diabetes Mellitus. ADA recommended reference range Interpretation and review of laboratory results Abnormal [facility] Potassium [Moles/Vol] 4 mmol/L 3.5 - 5.1 mmol/L [facility] Sodium [Moles/Vol] 139 mmol/L 136 - 145 mmol/L [facility] Urea nitrogen [Mass/Vol] 19 mg/dL 7 - 25 mg/dL [facility] Basophils Auto (Bld) [#/Vol] Ordered By: Matteo Melo on 06-22-2024 Basophils (Bld) [#/Vol] Automated basophil count 0.0-0.2 [facility] Basophils/100 WBC Auto (Bld) Ordered By: Matteo Melo on 06-22-2024 Basophils/100 WBC (Bld) Automated basophil % . [facility] CBC W Auto Differential pane l (Bld)on 06-22-2024 Basophils (Bld) [#/Vol] 0.1 10*3/uL 0.0 - 0.2 10*3/uL [facility] Basophils/100 WBC Manual cnt (Syn fld) 0.7 % . [facility] Eosinophils (Bld) [#/Vol] 0.4 10*3/uL 0.0 - 0.45 10*3/uL [facility] Eosinophils/100 WBC Manual cnt (Syn fld) 5 % . [facility] Erythrocyte distribution width (RBC) [Ratio] 13.4 % 12.0 - 14.8 % [facility] Hematocrit (Bld) [Volume fraction] 40.7 % 38.8 - 50.0 % [facility] Hemoglobin (Bld) [Mass/Vol] 13.7 g/dL 13.0 - 17.0 g/dL [facility] Lymphocytes (Bld) [#/Vol] 2.5 10*3/uL 1.00 - 4.8 10*3/uL [facility] Lymphocytes/100 WBC Manual cnt (Syn fld) 30.2 % . [facility] MCH (RBC) [Entitic mass] 31 pg 27.5 - 35.[address] [facility] MCHC (RBC) [Mass/Vol] 33.7 g/dL 32.5 - 35.6 g/dL [facility] MCV (RBC) [Entitic vol] 92 fL 83.5 - [address] [facility] Monocytes (Bld) [#/Vol] 0.7 10*3/uL 0.0 - 0.8 10*3/uL [facility] Monocytes+Macrophages/ 100 WBC Manual cnt (Syn fld) 8.8 % . [facility] Neutrophils (Bld) [#/Vol] 4.6 10*3/uL 1.8 - 7.7 10*3/uL [facility] Neutrophils/100 WBC Manual cnt (Syn fld) 55.3 % . [facility] NRBC 0.2 /100{WBC} 0 - 0.5 /100{WBC} [facility] Platelet mean volume (Bld) [Entitic vol] 8.9 fL 6.6 - 10.1 fL [facility] Platelets (Bld) [#/Vol] 234 10*3/uL 150 - 450 10*3/uL [facility] RBC LM.HPF (Urine sed) [#/Area] 4.43 10*6/uL 3.90 - 5.60 10*6/uL [facility] WBC (Bld) [#/Vol] 8.4 10*3/uL 4.1 - 10.5 10*3/uL [facility] WBC LM.HPF (Urine sed) [#/Area] 8.4 10*3/uL 4.1 - 10.5 10*3/uL [facility] Calcium [Mass/volume] in Ser um or PlasmaOrdered By: Matteo Melo on 06-22-2024 Calcium [Mass/Vol] Calcium [Mass/volume ] in Serum or Plasma 8.6-10.3 [facility] Carbon dioxide, total [Moles /volume] in Serum or PlasmaOrdered By: Matteo Melo on 06-22-2024 CO2 [Moles/Vol] Carbon dioxide, tota l [Moles/volume] in Serum or Plasma 21.0-31.0 [facility] Chloride [Moles/volume] in S stephanie or PlasmaOrdered By: Matteo Melo on 06-22-2024 Chloride [Moles/Vol] Chloride [Moles/vol ume] in Serum or Plasma High 98-107 [facility] Complete Blood Count Auto Di ffon 06-22-2024 Basophils (Bld) [#/Vol] 0.1 10*3/uL Normal 0.0-0.2 [facility] Comment on above: Result Comment: PERF ORMED BY: [place] [address] PATHOLOGIST SERVICES HOST HEBER SHANNON M.D. Performed By: #### C BC, BMP #### [address] Performed By: #### C MP, CBC #### [address] Basophils/100 WBC (Bld) 0.7 % Normal . [facility] Comment on above: Performed By: #### C BC, BMP #### [address] Performed By: #### C MP, CBC #### [address] Eosinophils (Bld) [#/Vol] 0.4 10*3/uL Normal 0.0-0.45 [facility] Comment on above: Performed By: #### C BC, BMP #### [address] Performed By: #### C MP, CBC #### [address] Eosinophils/100 WBC (Bld) 5.0 % Normal . [facility] Comment on above: Performed By: #### C BC, BMP #### [address] Performed By: #### C MP, CBC #### [address] Erythrocyte distribution width (RBC) [Ratio] 13.4 % Normal 12.0-14.8 [facility] Comment on above: Performed By: #### C BC, BMP #### [address] Performed By: #### C MP, CBC #### [address] Hematocrit (Bld) [Volume fraction] 40.7 % Normal 38.8-50.0 [facility] Comment on above: Performed By: #### C BC, BMP #### [address] Performed By: #### C MP, CBC #### [address] Hemoglobin (Bld) [Mass/Vol] 13.7 g/dL Normal 13.0-17.0 [facility] Comment on above: Performed By: #### C BC, BMP #### [address] Performed By: #### C MP, CBC #### [address] Lymphocytes (Bld) [#/Vol] 2.5 10*3/uL Normal 1.00-4.8 [facility] Comment on above: Performed By: #### C BC, BMP #### [address] Performed By: #### C MP, CBC #### [address] Lymphocytes/100 WBC (Bld) 30.2 % Normal . [facility] Comment on above: Performed By: #### C BC, BMP #### [address] Performed By: #### C MP, CBC #### [address] MCH (RBC) [Entitic mass] 31.0 pg Normal 27.5-35.2 [facility] Comment on above: Performed By: #### C BC, BMP #### [address] Performed By: #### C MP, CBC #### [address] MCV (RBC) [Entitic vol] 92.0 fL Normal 83.5-101 [facility] Comment on above: Performed By: #### C BC, BMP #### [place] [address] [place] Performed By: #### C MP, CBC #### [address] Mean Corpuscular HGB Conc 33.7 g/dL Normal 32.5-35.6 [facility] Comment on above: Performed By: #### C BC, BMP #### [address] Performed By: #### C MP, CBC #### [address] Monocytes (Bld) [#/Vol] 0.7 10*3/uL Normal 0.0-0.8 [facility] Comment on above: Performed By: #### C BC, BMP #### [address] Performed By: #### C MP, CBC #### [address] Monocytes/100 WBC (Bld) 8.8 % Normal . [facility] Comment on above: Performed By: #### C BC, BMP #### [address] Performed By: #### C MP, CBC #### [address] Neutrophils (Bld) [#/Vol] 4.6 10*3/uL Normal 1.8-7.7 [facility] Comment on above: Performed By: #### C BC, BMP #### [address] Performed By: #### C MP, CBC #### [address] Neutrophils/100 WBC (Bld) 55.3 % Normal . [facility] Comment on above: Performed By: #### C BC, BMP #### [address] Performed By: #### C MP, CBC #### [address] NRBC% 0.2 /100{WBC} Normal 0-0.5 [facility] Comment on above: Performed By: #### C BC, BMP #### [address] Performed By: #### C MP, CBC #### [address] Platelet mean volume (Bld) [Entitic vol] 8.9 fL Normal 6.6-10.1 [facility] Comment on above: Performed By: #### C BC, BMP #### [address] Performed By: #### C MP, CBC #### [address] Platelets (Bld) [#/Vol] 234 10*3/uL Normal 150-450 [facility] Comment on above: Performed By: #### C BC, BMP #### [address] Performed By: #### C MP, CBC #### [address] RBC (Bld) [#/Vol] 4.43 10*6/uL Normal 3.90-5.60 [facility] Comment on above: Performed By: #### C BC, BMP #### [address] Performed By: #### C MP, CBC #### [address] WBC (Bld) [#/Vol] 8.4 10*3/uL Normal 4.1-10.5 [facility] Comment on above: Performed By: #### C BC, BMP #### [address] Performed By: #### C MP, CBC #### [address] Creatinine [Mass/volume] in Serum or PlasmaOrdered By: Matteo Melo on 06-22-2024 Creatinine [Mass/Vol] Creatinine [Mass/v olume] in Serum or Plasma 0.70-1.30 [facility] ECG 12 lead ECGon 06-22-2024 ECG 12 lead ECG [facility] [address] [address] Electrocardiograph Report Signed Patient: Jeremie Bennett MR#: [id number] 812 : 1940 Acct:[id number] Age/Sex: 83 / M ADM Date: 06/22/24 Loc: PS Room: Type: [facility] CLI Attending Dr: Matteo Melo MD [...] Santiago MD 0 06/23/24 1517 Normal [facility] ECG 12 lead ECG [facility] Main [address] [address] Electrocardiograph Report Signed Patient: Jeremie Bennett MR#: [id number] 669 : 1940 Acct:[id number] Age/Sex: 83 / M ADM Date: 06/22/24 [...] Santiago MD 0 06/23/24 1517 Normal [facility] Eosinophils Auto (Bld) [#/Vo l]Ordered By: Matteo Melo on 06-22-2024 Eosinophils (Bld) [#/Vol] Automated eosinophil count 0.0-0.45 [facility] Eosinophils/100 WBC Auto (Bl d)Ordered By: Matteo Melo on 06-22-2024 Eosinophils/100 WBC (Bld) Automated eosinophil % . [facility] Erythrocyte distribution wid th Auto (RBC) [Ratio]Ordered By: Matteo Melo on 06-22-2024 Erythrocyte distribution width (RBC) [Ratio] Erythrocyte distribution width [Ratio] by Automated count 12.0-14.8 [facility] Glucose [Mass/volume] in Ser um or PlasmaOrdered By: Matteo Melo on 06-22-2024 Glucose [Mass/Vol] Glucose [Mass/volume ] in Serum or Plasma High 70-100 [facility] Comment on above: ADA recommended refe rence rangeRandom Glucose Reference Range is dependent on time and content of last meal. Glucose of more than 200 mg/dL in a nonstressed, ambulatory subject supports the diagnosis of Diabetes Mellitus. Hematocrit Auto (Bld) [Volum e fraction]Ordered By: Matteo Melo on 06-22-2024 Hematocrit (Bld) [Volume fraction] Hematocrit [Volume Fraction] of Blood by Automated count 38.8-50.0 [facility] Hemoglobin [Mass/volume] in BloodOrdered By: Matteo Melo on 06-22-2024 Hemoglobin (Bld) [Mass/Vol] Hemoglobin [Mass/volume] in Blood 13.0-17.0 [facility] Leukocytes [#/volume] correc suzy for nucleated erythrocytes in Blood by Automated counOrdered By: Matteo Melo on 06-22-2024 WBC corrected for nucl RBC Auto (Bld) [#/Vol] Leukocytes [#/volume] corrected for nucleated erythrocytes in Blood by Automated coun 4.1-10.5 [facility] Lymphocytes Auto (Bld) [#/Vo l]Ordered By: Matteo Melo on 06-22-2024 Lymphocytes (Bld) [#/Vol] Lymphocytes [#/volume] in Blood by Automated count 1.00-4.8 [facility] Lymphocytes/100 WBC Auto (Bl d)Ordered By: Matteo Melo on 06-22-2024 Lymphocytes/100 WBC (Bld) Lymphocytes/100 leukocytes in Blood by Automated count . [facility] MCH Auto (RBC) [Entitic mass ]Ordered By: Matteo Melo on 06-22-2024 MCH (RBC) [Entitic mass] MCH [Entitic mass] by Automated count 27.5-35.2 [facility] MCHC Auto (RBC) [Mass/Vol]Or dered By: Matteo Melo on 06-22-2024 MCHC (RBC) [Mass/Vol] MCHC [Mass/volume] by Automated count 32.5-35.6 [facility] MCV Auto (RBC) [Entitic vol] Ordered By: Matteo Melo on 06-22-2024 MCV (RBC) [Entitic vol] MCV [Entitic volume] by Automated count 83.5-101 [facility] Monocytes Auto (Bld) [#/Vol] Ordered By: Matteo Melo on 06-22-2024 Monocytes (Bld) [#/Vol] Automated blood monocyte count 0.0-0.8 [facility] Monocytes/100 WBC Auto (Bld) Ordered By: Matteo Melo on 06-22-2024 Monocytes/100 WBC (Bld) Automated monocyte % . [facility] Neutrophils Auto (Bld) [#/Vo l]Ordered By: Matteo Melo on 06-22-2024 Neutrophils (Bld) [#/Vol] Neutrophils [#/volume] in Blood by Automated count 1.8-7.7 [facility] Neutrophils/100 WBC Auto (Bl d)Ordered By: Matteo Melo on 06-22-2024 Neutrophils/100 WBC (Bld) Automated neutrophil % . [facility] No Panel InformationOrdered By: Matteo Melo on 06-22-2024 Estimated GFR (CKD-EPI) > 60.0 mL/Min [facility] Creatinine Clearance (Chem N/A [facility] Nucleated erythrocytes [Pres ence] in Blood by Automated countOrdered By: Matteo Melo on 06-22-2024 Nucleated RBC Auto Ql (Bld) Nucleated erythrocytes [Presence] in Blood by Automated count 0-0.5 [facility] Platelet mean volume Auto (B ld) [Entitic vol]Ordered By: Matteo Melo on 06-22-2024 Platelet mean volume (Bld) [Entitic vol] Platelet mean volume [Entitic volume] in Blood by Automated count 6.6-10.1 [facility] Platelets Auto (Bld) [#/Vol] Ordered By: Matteo Melo on 06-22-2024 Platelets (Bld) [#/Vol] Platelets [#/volume] in Blood by Automated count 150-450 [facility] Potassium [Moles/volume] in Serum or PlasmaOrdered By: Matteo Melo on 06-22-2024 Potassium [Moles/Vol] Potassium [Moles/v olume] in Serum or Plasma 3.5-5.1 [facility] RBC Auto (Bld) [#/Vol]Ordere d By: Matteo Melo on 06-22-2024 RBC (Bld) [#/Vol] Erythrocytes [#/volu me] in Blood by Automated count 3.90-5.60 [facility] Serum or plasma anion gap de terminationOrdered By: Matteo Melo on 06-22-2024 Anion gap [Moles/Vol] Serum or plasma an ion gap determination 6.0-15.0 [facility] Sodium [Moles/volume] in Ser um or PlasmaOrdered By: Matteo Melo on 06-22-2024 Sodium [Moles/Vol] Sodium [Moles/volume ] in Serum or Plasma 136-145 [facility] Urea nitrogen [Mass/volume] in Serum or PlasmaOrdered By: Matteo Melo on 06-22-2024 Urea nitrogen [Mass/Vol] Urea nitrogen [Mass/volume] in Serum or Plasma 7-25 [facility] WBC Auto (Bld) [#/Vol]Ordere d By: Matteo Melo on 06-22-2024 WBC (Bld) [#/Vol] Leukocytes [#/volume ] in Blood by Automated count 4.1-10.5 [facility] Surgical pathology studyon 0 06-05-2024 Surgical pathology study Pathology report.total SEE COMMENT Surgical Pathology Case: [id number] Authorizing Provider: Mary Schneider MD Collected: 06/05/2024 1609 Ordering Location: [facility] Received: 06/05/[address] [place] [address] Pathologist: Alessandro Arzate DDS Specimen: LYMPH NODE BIOPSY Path report.final diagnosis SEE COMMENT Lymph node, core biopsy: - Metastatic non-keratinizing squamous cell carcinoma, see note. 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 P16 by immunohistochemistry: Equivocal. 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 Reference Range (p16): Negative: <50% strong nuclear [...] is submitted in toto in one cassette. [facility] AP ASR DISCLAIMER One or more of the reagents used to perform assays on this specimen MAY have contained components considered to be analyte specific reagents (ASR's). ASR's have not been cleared or approved by the U.S. Food and Drug Administration. These assays were developed and their performance characteristics determined by the Department of Pathology at [facility]. The FDA does not require [...] and negative controls which stained appropriately. Normal [facility] US GUIDED BIOPSY LYMPH NODE SUPERFICIALon 06-05-2024 US GUIDED BIOPSY LYMPH NODE SUPERFICIAL Interpreted By: Gaby Perez and Guirguis James STUDY: US GUIDED BIOPSY LYMPH NODE SUPERFICIAL; 06/05/2024 1:53 pm INDICATION: Signs/Symptoms:left neck enlarged lymph node seen on PET. COMPARISON: PET-CT dated 03/27/2024 ACCESSION NUMBER(S): [id number] ORDERING CLINICIAN: MARY SCHNEIDER TECHNIQUE: INTERVENTIONALIST(S): MD [...] intravenous fentanyl 50mcg and versed 0.5mg from 2285-5298. The physician was assisted by an independent [...] findings as stated. Performed and dictated at [facility]. MACRO: None. Signed by: Gaby Perez 06/05/2024 9:02 PM Dictation workstation: [id number] Normal [facility] US guidance for percutaneous biopsy [...] findings as stated. Performed and dictated at [facility]. MACRO: None. Signed by: Gaby Perez 06/05/2024 9:02 PM Dictation workstation: [id number] [facility] MMODAL Interpreted By: Gaby Perez and Guirguis James STUDY: US GUIDED BIOPSY LYMPH NODE SUPERFICIAL; 06/05/2024 1:53 pm INDICATION: Signs/Symptoms:left neck enlarged lymph node seen on PET. COMPARISON: PET-CT dated 03/27/2024 ACCESSION NUMBER(S): [id number] ORDERING CLINICIAN: MARY SCHNEIDER TECHNIQUE: INTERVENTIONALIST(S): MD [...] intravenous fentanyl 50mcg and versed 0.5mg from 2770-9572. The physician was assisted by an independent [...] PET. COMPARISON: PET-CT dated 03/27/2024 ACCESSION NUMBER(S): [id number] ORDERING CLINICIAN: MARY SCHNEIDER TECHNIQUE: INTERVENTIONALIST(S): MD [...] intravenous fentanyl 50mcg and versed 0.5mg from 0334-5384. The physician was assisted by an independent [...] findings as stated. Performed and dictated at [facility]. MACRO: None. Signed by: Gaby Perez 06/05/2024 9:02 PM Dictation workstation: [id number] [facility] Work Phone: Radiology Study observation (narrative) [facility] Work Phone: US guidance for percutaneous biopsy of Lymph nodeOrdered By: Gaby Perez on 06-05-2024 [facility] Work Phone: NM TRANSFER OF OUTSIDE FILMS on 05-15-2024 NM TRANSFER OF OUTSIDE FILMS Outside images for comparison or treatment purposes, not interpreted by Radiologists. Normal [facility] Study Interpretation of outs romina studyon 05-15-2024 Outside images for comparison or treatment purposes, not interpreted by Radiologists. IMAGING Blood type and Indirect anti body screen panel (Bld)on 05-11-2024 ABO group Nom (Bld) A [facility] Blood group antibody screen Ql Negative [facility] D Ag Ql (Bld) Positive [facility] ABO group Nom (Bld) A Normal [facility] Comment on above: Order Comment: Patie nt admitted for surgery associated with significant blood loss OR per blood bank request. Performed By: #### 3 4532-2 #### TING Escalante ([id number]) [facility] ([facility]) [address] [place] [address] Blood group antibody screen Ql Negative Normal [facility] Comment on above: Order Comment: Patie nt admitted for surgery associated with significant blood loss OR per blood bank request. Performed By: #### 3 4532-2 #### TING Escalante ([id number]) [facility] ([facility]) [address] [place] [address] D Ag Ql (Bld) Positive [facility] Comment on above: Order Comment: Patie nt admitted for surgery associated with significant blood loss OR per blood bank request. Performed By: #### 3 4532-2 #### TING Escalante ([id number]) [facility] ([facility]) [address] [place] [address] 04657 Glucose Test strip manual (B ld) [Mass/Vol]on 05-11-2024 Glucose [Mass/Vol] 128 mg/dL High 74 - 99 mg/dL [facility] Interpretation and review of laboratory results Abnormal [facility] Glucose [Mass/Vol] 128 mg/dL High 74-99 [facility] Comment on above: Performed By: #### 2 341-6 #### TING Escalante ([id number]) [facility] ([facility]) [address] [place] [address] Glucose [Mass/Vol] 120 mg/dL High 74 - 99 mg/dL [facility] Comment on above: RN NOTIFIED Interpretation and review of laboratory results Abnormal [facility] Glucose [Mass/Vol] 120 mg/dL High 74-99 [facility] Comment on above: Result Comment: BORIS Tripp OTIFIED Performed By: #### 2 341-6 #### TING Escalante ([id number]) [facility] ([facility]) [address] [place] [address] Surgical pathology studyon 1 07-12-2023 Surgical pathology study Pathology report.total SEE COMMENT Surgical Pathology Case: [id number] Authorizing Provider: Mary Schnedier MD Collected: 05/11/2024801 Ordering Location: [facility] Received: 05/11/2024 08 [facility] Pathologist: Asuncion Quintanilla MD PhD Intraop: Carmel [...] invasion. Intraoperative Consult Pathologist(s): Carmel Patel MD data center consultant: Dr. Alessandro Arzate. [facility] AP ASR DISCLAIMER One or more of the reagents used to perform assays on this specimen MAY have contained components considered to be analyte specific reagents (ASR's). ASR's have not been cleared or approved by the U.S. Food and Drug Administration. These assays were developed and their performance characteristics determined by the Department of Pathology at [facility]. The FDA does not require [...] and negative controls which stained appropriately. 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] VERAB/VERIFY ABORHon 024 ABO group Nom (Bld) A Normal [facility] Comment on above: Performed By: #### V ERAB #### TING Esclaante ([id number]) [facility] ([facility]) [address] [place] [address] D Ag Ql (Bld) Positive Normal [facility] Comment on above: Performed By: #### V ERAB #### TING Escalante ([id number]) [facility] ([facility]) [address] [place] [address] Verify ABO/Rh Group Test (VE RAB)on 05-11-2024 ABO group Nom (Bld) A [facility] D Ag Ql (Bld) Positive [facility] Office Visiton 04-25-2024 Follow-up visit [id number] [address] P 1940 M Date Provider Department Center 04/25/2024 STACEY ERNANDEZ [facility] Family History Problem Relation Age of Onset Coronary artery disease Mother Kidney disease Mother Heart failure Mother Family Status - Relation Status Age at Mother Level of Service:12865 [place] OFFICE/OUTPATIENT NEW MODERATE MDM 45 MINUTES Normal [facility] Ambulatory Visit Summaryon 1 06-18-2023 Ambulatory Visit Summary Ambulatory Visit Summary JEREMIE BENNETT :1940 Visit Date:04/17/2024 Ambulatory Visit Instructions Your Diagnosis Type 2 diabetes mellitus with hypercholesterolemia BMI 30.0-30.9,adult Exogenous obesity Former smoker Chronic GERD Coronary artery disease involving [place] coronary artery of [place] heart without angina pectoris Hypercholesterolemia Primary hypertension [...] Tab) fluticasone nasal (fluticasone Nasal 0.05 mg/inh [place]) furosemide (furosemide 20 mg Tab) irbesartan (irbesartan [...] Appointments Wednesday 2:30 PM EDT With: Where: [address] [address]- Wednesday 3:30 PM EDT With: Hermes CASON, Demetrius Rosa Where: [address] [address]- Medications What How Much When [...] fluticasone nasal (fluticasone Nasal 0.05 mg/ inh [place]) See instructions USE 1 SPRAY IN BOTH [...] By Mouth Every day Unchanged Misc Prescription ([facility]) See instructions one touch ultra test strips test sugars once a day Unchanged Misc Prescription ([facility] Prescription) See instructions one touch ultra [...] Comment on above: Performed By: #### 2 119316 #### [facility] [address] [place] [address] Basophils/Leukocytes Auto (Bld) [Pure # fraction] 0.1 E9/L Normal 0.0-0.2 [facility] Comment on above: Performed By: #### 2 173571 #### [facility] [address] [place] [address] Eosinophils (Bld) [#/Vol] 0.4 E9/L Normal 0.0-0.5 [facility] Comment on above: Performed By: #### 2 325592 #### [facility] [address] [place] [address] Eosinophils/100 WBC (Bld) 4.6 % Normal 0.0-8.0 [facility] Comment on above: Performed By: #### 2 627226 #### [facility] [address] [place] [address] Erythrocyte distribution width (RBC) [Ratio] 14.0 % Normal 10.9-14.2 [facility] Comment on above: Performed By: #### 2 809352 #### [facility] [address] [place] [address] Hematocrit (Bld) [Volume fraction] 43.7 % Normal 37.7-49.0 [facility] Comment on above: Performed By: #### 2 354162 #### [facility] [address] [place] [address] Hemoglobin (Bld) [Mass/Vol] 14.5 g/dL Normal 13.5-17.5 [facility] Comment on above: Performed By: #### 2 120005 #### [facility] [address] [place] [address] Lymphocytes (Bld) [#/Vol] 2.0 E9/L Normal 1.0-4.0 [facility] Comment on above: Performed By: #### 2 476919 #### [facility] [address] [place] [address] Lymphocytes/100 WBC (Bld) 22.4 % Normal 14.0-50.0 [facility] Comment on above: Performed By: #### 2 289315 #### [facility] [address] [place] [address] MCH (RBC) [Entitic mass] 31.2 pg Normal 27.0-34.0 [facility] Comment on above: Performed By: #### 2 619666 #### [facility] [address] [place] [address] MCHC (RBC) [Mass/Vol] 33.2 g/dL Normal 31.4-36.0 [facility] Comment on above: Performed By: #### 2 590106 #### [facility] [address] [place] [address] MCV (RBC) [Entitic vol] 94.2 fL Normal 80.0-100.0 [facility] Comment on above: Performed By: #### 2 037357 #### [facility] [address] [place] [address] Monocytes (Bld) [#/Vol] 0.7 E9/L Normal 0.2-1.0 [facility] Comment on above: Performed By: #### 2 883504 #### [facility] [address] [place] [address] Neutrophils (Bld) [#/Vol] 5.7 E9/L Normal 2.0-7.5 [facility] Comment on above: Performed By: #### 2 378434 #### [facility] [address] [place] [address] Neutrophils/100 WBC (Bld) 64.7 % Normal 36.0-75.0 [facility] Comment on above: Performed By: #### 2 227487 #### [facility] [address] [place] [address] Platelet mean volume (Bld) [Entitic vol] 9.2 fL Normal 6.4-10.8 [facility] Comment on above: Performed By: #### 2 232319 #### [facility] [address] [place] [address] Platelets (Bld) [#/Vol] 243.0 E9/L Normal 150.0-500. 0 [facility] Comment on above: Performed By: #### 2 573376 #### [facility] [address] [place] [address] RBC (Bld) [#/Vol] 4.6 E12/L Normal 4.3-5.9 [facility] Comment on above: Performed By: #### 2 942422 #### [facility] [address] [place] [address] WBC corrected for nucl RBC Auto (Bld) [#/Vol] 8.9 E9/L Normal 4.0-11.0 [facility] Comment on above: Performed By: #### 2 397726 #### [facility] [address] [place] [address] CHEMISTRYOrdered By: SYSTEM SYSTEM on 04-17-2024 Albumin [...] (Bld) [Mass fraction] 6.5 % High <=5.9% [facility] ChemAutoSS CMPon 04-17-2024 Albumin [Mass/Vol] 4.3 g/dL Normal 3.3-5.0 [facility] Comment on above: Performed By: #### 2 798684 #### [facility] [address] [place] [address] Albumin/Globulin (S) [Mass conc ratio] 1.7 Normal 1.1-2.2 [facility] Comment on above: Performed By: #### 2 633359 #### [facility] [address] [place] [address] ALP [Catalytic activity/Vol] 82 Int._Unit/L Normal 21-98 [facility] Comment on above: Performed By: #### 2 565859 #### [facility] [address] [place] [address] ALT No additional P-5'-P [Catalytic activity/Vol] 17 Int._Unit/L Normal 6-46 [facility] Comment on above: Performed By: #### 2 468331 #### [facility] [address] [place] [address] Anion gap [Moles/Vol] 10 mmol/L Normal 6-16 [facility] Comment on above: Performed By: #### 2 434770 #### [facility] [address] [place] [address] AST [Catalytic activity/Vol] 18 Int._Unit/L Normal 5-43 [facility] Comment on above: Performed By: #### 2 282877 #### [facility] [address] [place] [address] Bilirubin [Mass/Vol] 0.6 mg/dL Normal 0.0-1.1 [facility] Comment on above: Performed By: #### 2 202064 #### [facility] [address] [place] [address] Calcium [Mass/Vol] 9.7 mg/dL Normal 8.9-11.1 [facility] Comment on above: Performed By: #### 2 341642 #### [facility] [address] [place] [address] Chloride [Moles/Vol] 108 mmol/L Normal 101-111 [facility] Comment on above: Performed By: #### 2 504140 #### [facility] [address] [place] [address] CO2 [Moles/Vol] 27 mmol/L Normal 21-31 [facility] Comment on above: Performed By: #### 2 711392 #### [facility] [address] [place] [address] Creatinine [Mass/Vol] 1.0 mg/dL Normal 0.5-1.3 [facility] Comment on above: Performed By: #### 2 087835 #### [facility] [address] [place] [address] Globulin (S) [Mass/Vol] 2.5 g/dL Normal 1.4-4.0 [facility] Comment on above: Performed By: #### 2 798075 #### [facility] [address] [place] [address] Glucose [Mass/Vol] 145 mg/dL Normal 55-199 [facility] Comment on above: Performed By: #### 2 437764 #### [facility] [address] [place] [address] Potassium [Moles/Vol] 4.2 mmol/L Normal 3.5-5.3 [facility] Comment on above: Performed By: #### 2 880072 #### [facility] [address] [place] [address] Protein [Mass/Vol] 6.8 g/dL Normal 6.0-7.8 [facility] Comment on above: Performed By: #### 2 223997 #### [facility] [address] [place] [address] Sodium [Moles/Vol] 141 mmol/L Normal 135-145 [facility] Comment on above: Performed By: #### 2 492618 #### [facility] [address] [place] [address] Urea nitrogen [Mass/Vol] 22 mg/dL High 5-21 [facility] Comment on above: Performed By: #### 2 705025 #### [facility] [address] [place] [address] Urea nitrogen/Creatinine [Mass ratio] 22 No Units High 10-20 [facility] Comment on above: Performed By: #### 2 793837 #### [facility] [address] [place] [address] Family Medicine Office/Clini c Noteon 04-17-2024 Family [...] a referral to Dr. Marlene Schneider in [place] for further evaluation. The patient has a [...] or previously received 4274F Lab Specimen Collect 11065 Microalbumin Level Urine Most recent diastolic blood [...] or previously received 4274F Lab Specimen Collect 11935 Microalbumin Level Urine Most recent diastolic blood [...] or previously received 4274F Lab Specimen Collect 59787 Microalbumin Level Urine Most recent diastolic blood [...] Normal 4.0 - 11.0 E9/L Remisol Heme [id number] 04-17-2024 HbA1c (Bld) [Mass fraction] 6.5 % High <=5.9 [facility] Comment on above: Performed By: #### 7 [id number] #### [facility] [address] [place] [address] U Microalbon 04-17-2024 Albumin DL <= 20 mg/L (U) [Mass/Vol] 0.7 mg/dL Normal 0.0-1.9 [facility] Comment on above: Performed By: #### 1 [id number] #### [facility] [address] [place] [address] eGFRon 04-17-2024 eGFR 74 mL/min/1.73 m2 Normal >=59 [facility] Comment on above: Performed By: #### 1 9103073 #### [facility] [address] [place] [address] Basic metabolic 2000 panelon 04-11-2024 Anion gap [Moles/Vol] 15 mmol/L Normal 10-20 [facility] Comment on above: Performed By: #### 2 4321-2 #### TING EARLYER L (64211) [facility] ([facility]) [id number] [place] [address] Calcium [Mass/Vol] 9.9 mg/dL Normal 8.6-10.6 [facility] Comment on above: Performed By: #### 2 4321-2 #### TING VICENTEMOTZER L (90692) [facility] ([facility]) [address] [place] [address] Chloride [Moles/Vol] 107 mmol/L Normal 98-107 [facility] Comment on above: Performed By: #### 2 4321-2 #### TING VICENTEMOTZER L (85900) [facility] ([facility]) [address] [place] [address] CO2 [Moles/Vol] 25 mmol/L Normal 21-32 [facility] Comment on above: Performed By: #### 2 4321-2 #### TING VICENTEMOTZER L (12764) [facility] ([facility]) [address] [place] [address] Creatinine [Mass/Vol] 0.96 mg/dL Normal 0.50-1.30 [facility] Comment on above: Performed By: #### 2 4321-2 #### TING VICENTEMOTZER L (26458) [facility] ([facility]) [address] [place] [address] Glomerular filtration rate/1.73 sq M.predicted 78 mL/min/1.73m*2 Normal >60 [facility] Comment on above: Result Comment: Calc ulations of estimated GFR are performed using the 2020 CKD-EPI Study Refit equation without the race variable for the IDMS-Traceable creatinine methods. https://jasn.asnjournals.org/content//ASN.85630 25664 Performed By: #### 2 4321-2 #### TING Escalante ([id number]) [facility] ([facility]) [address] [place] [address] Glucose [Mass/Vol] 109 mg/dL High 74-99 [facility] Comment on above: Performed By: #### 2 4321-2 #### TING Escalante (16612) [facility] ([facility]) [address] [place] [address] Potassium [Moles/Vol] 4.5 mmol/L Normal 3.5-5.3 [facility] Comment on above: Performed By: #### 2 4321-2 #### TING Escalante (22141) [facility] ([facility]) [address] [place] [address] Sodium [Moles/Vol] 142 mmol/L Normal 136-145 [facility] Comment on above: Performed By: #### 2 4321-2 #### TING Escalante (95951) [facility] ([facility]) [address] [place] [address] Urea nitrogen [Mass/Vol] 18 mg/dL Normal 6-23 [facility] Comment on above: Performed By: #### 2 4321-2 #### TING Escalante (37867) [facility] ([facility]) [address] [place] [address] CBC panel Auto (Bld)on 04-11 Erythrocyte distribution width (RBC) [Ratio] 13.3 % Normal 11.5-14.5 [facility] Comment on above: Performed By: #### 5 8410-2 #### TING VIEIRA L (02461) [facility] ([facility]) [address] [place] [address] Hematocrit (Bld) [Volume fraction] 45.5 % Normal 41.0-52.0 [facility] Comment on above: Performed By: #### 5 8410-2 #### TING Escalante (60341) [facility] ([facility]) [address] [place] [address] Hemoglobin (Bld) [Mass/Vol] 14.5 g/dL Normal 13.5-17.5 [facility] Comment on above: Performed By: #### 5 8410-2 #### TING Escalante (49652) [facility] [facility] ([facility]) [id number] [place] [address] 87685 MCH (RBC) [Entitic mass] 30.1 pg Normal 26.0-34.0 [facility] Comment on above: Performed By: #### 5 8410-2 #### TING Escalante ([id number]) [facility] ([facility]) [address] [place] [address] 78306 MCHC (RBC) [Mass/Vol] 31.9 g/dL Low 32.0-36.0 [facility] Comment on above: Performed By: #### 5 8410-2 #### TING Escalante ([id number]) [facility] ([facility]) [address] [place] [address] 68963 MCV (RBC) [Entitic vol] 94 fL Normal 80-100 [facility] Comment on above: Performed By: #### 5 8410-2 #### TING Escalante ([id number]) [facility] ([facility]) [address] [place] [address] 15076 Nucleated RBC/100 WBC (Bld) [Ratio] 0.0 /100 WBCs Normal 0.0-0.0 [facility] Comment on above: Performed By: #### 5 8410-2 #### TING Escalante ([id number]) [facility] ([facility]) [address] [place] [address] 22973 Platelets (Bld) [#/Vol] 254 x10*3/uL Normal 150-450 [facility] Comment on above: Performed By: #### 5 8410-2 #### TING Escalante ([id number]) [facility] ([facility]) [address] [place] [address] RBC (Bld) [#/Vol] 4.82 x10*6/uL Normal 4.50-5.90 [facility] Comment on above: Performed By: #### 5 8410-2 #### TING VIEIRA L ([id number]) [facility] ([facility]) [address] [place] [address] WBC (Bld) [#/Vol] 8.5 x10*3/uL Normal 4.4-11.3 [facility] Comment on above: Performed By: #### 5 8410-2 #### TING NNEKAER L ([id number]) [facility] ([facility]) [address] [place] [address] Surgical pathology studyon 1 06-07-2023 Surgical pathology study Pathology report.total SEE COMMENT Surgical Pathology Case: [id number] Authorizing Provider: Mary Schneider MD Collected: 04/07/2024 1137 Ordering Location: [facility] Received: 04/07/2024 1145 Pathologist: Alessandro [...] PAS is negative for heart fungal organisms. data center consultant: Dr. Jose Leary. Laboratory comment By [...] is submitted in toto in one cassette. [facility] GLUCOSE, BLOOD (POC)on 03-27 Glucose [Mass/Vol] 113 mg/dL Abnormal 74 - 99 mg/dL [facility] Comment on above: Location[facility], [address] [place] [address] Dr. [place], [place], [address] The Accu-Chek Inform II glucose meter has [...] Interpretation and review of laboratory results Abnormal [facility] NM PET/CT SKULL-THIGH INITon 03-27-2024 NM [...] * Uptake Time: 61 minutes * Radiopharmaceutical: [id number] (FDG) COMPARISON: No previous FDG PET/CT available [...] of you (more content not included)... Normal [facility] Ambulatory Visit Summaryon 1 05-23-2023 Ambulatory [...] Tab) fluticasone nasal (fluticasone Nasal 0.05 mg/inh [place]) furosemide (furosemide 20 mg Tab) irbesartan (irbesartan [...] EST With: Hermes CASON, Demetrius Rosa Where: [address] [phone]- Wednesday 2:30 PM EDT With: Where: [address] [phone]- Medications What How Much When Instructions Unchanged [...] fluticasone nasal (fluticasone Nasal 0.05 mg/ inh [place]) See instructions USE 1 SPRAY IN BOTH [...] sidebranch IPMN- 04/[address] Aguilar @ [facility] Repeat MRCP 02/2024 2. 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 [...] 03/23/24 14:49 EST Obdulio 02-29-2024 L Specimen: [id number] Received: 02/29/24 Status: LISA Kirby Num: [id number] Spec Type: Surgical Subm Dr: LUC HAM [...] Account Attending Physician Jeremie Bennett 83/M LABELL [id number] LUC HAM MD SPEC NUM: [id number] RECD: 02/29/24 STATUS: LISA KIRBY NUM: [id number] DONTRELL: 02/29/24 DR: LUC HAM MD ENTERED: 02/29/24 [facility] DR: Myra Templeton SPEC TYPE: Surgical DEPT: MANNY MONTEZ ENTERED BY: [id number] RECV BY: [id number] ORDERED: S 100, Mucicarmine, HE/6, Gross/Micro L4/2, CK5 6, CK20, CK 7, NAPSIN A, CINtec p16, TTF1, NKX3.1, MOC31, GATA3, p40, DIFF QWIK ORDERED: S 100, Mucicarmine, HE/6, Gross/Micro L4/2, CK5 6, CK20, CK 7, NAPSIN A, CINtec p16, TTF1, USS/4, NKX3.1, MOC31, GATA3, p40, DIFF QWIK Supplemental Report Addendum 1 Entered: 03/04/24-3624 Supplemental for findings of flow cytometry analysis (Part B) from [facility] -The flow cytometry test is canceled, due to insufficient cellularity / insufficient lymphocytes Addendum Signed (signature on file) Tae Sanchez MD 03/04/24 1035 Pathological Diagnosis A, right cervical lymph node, core biopsy: -Positive for metastatic carcinoma, 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 Note: Specimen: [id number] Received: 02/29/24 Status: LISA Kirby Num: [id number] Spec Type: Surgical Subm Dr: LUC HAM MD Tissues: A Lymph Node - Biopsy (Needle or Incisional) (RT CERVICAL LYMPH NODE) B Lymph Node - Biopsy (Needle or Incisional) (RT CERVICAL LYMPH NODE-SALIN) Procedures: S 100, Mucicarmine, HE/6, Gross/Micro L4/2, CK5 6, CK20, CK 7, NAPSIN A, CINtec p16, TTF1, NKX3.1, MOC31, GATA3, p40, DIFF QWIK Patient: Jeremie Bennett [id number] (Continued) Specimen: [id number] Received: 02/29/24 (Continued) Pathological Diagnosis (Continued) Signed (signature on file) ChinYazmin Sanchez MD 03/04/24 1033 Specimen: [id number] Received: 02/29/24 Status: LISA Kirby Num: [id number] Spec Type: Surgical Subm Dr: LUC HAM MD Tissues: A Lymph Node - Biopsy (Needle or Incisional) (RT CERVICAL LYMPH NODE) B Lymph Node - Biopsy (Needle or Incisional) (RT CERVICAL LYMPH NODE-SALIN) Procedures: S 100, Mucicarmine, HE/6, Gross/Micro L4/2, CK5 6, CK20, CK 7, NAPSIN A, CINtec p16, TTF1, NKX3.1, MOC31, GATA3, p40, DIFF QWIK Patient: Jeremie Bennett [id number] (Continued) Specimen: [id number] Received: 02/29/24-1519 (Continued) Pathological Diagnosis (Continued) -The [...] c (more content not included)... Normal [facility] CT SOFT TISSUE NECK W [...] Comment: CT S/ T Neck W at [facility]. Please call patient to schedule. Itz 02-02-2024 CNPN Telephone ([facility]) ----- JEREMIE BENNETT ([id number]) 1940 M Date Time Provider Department 02/02/24 VAISHALI PRINGLE [facility] During your visit today, we recorded [...] and it was completed in 12/2023 at [facility]. Our office will request results for Dr. Pringle's review. Follow up will be determined upon Dr. Pringle's review of results. Carlitos Beckman 02/04/2024 9:19 AM Signed Surveillance imaging completed at OSH for IPMN surveillance. Carlitos Beckman 02/07/2024 9:31 AM Signed IPMN surveillance. Review OSH images and advise please [facility] MRI Cholanglogram Pancreatography 11/09/2023 Allergies As of Date: 02/02/2024 Noted Allergy Reaction ADHESIVE TAPE-SILICONES 01/19/2019 2 - Rash NIACIN 01/19/2019 9 - Itching 16 - Unknown Date Reviewed: 04/01/2023 Reviewed by: Debby Holland MA - Fully Assessed Reason for Visit: MRI Appointment [7927] [employer] - Other [[id number]] Primary Visit Diagnosis:IPMN (intraductal papillary mucinous neoplasm) [D49.0] Order(s):CONSULT FOR RAD 2ND READ [6180126] Order #: [id number]: 1 Prescriptions as of 02/18/2024 - iv [...] fluticasone (FLONASE) 50 mcg/actuation nasal spray 1 Campus. - omeprazole (PRILOSEC) 40 mg capsule Take [...] Encounter Status:Closed by CARLITOS BECKMAN on 10/4/24 [facility] Ambulatory Visit Summaryon 0 02-01-2024 Ambulatory [...] Tab) fluticasone nasal (fluticasone Nasal 0.05 mg/inh [place]) furosemide (furosemide 20 mg Tab) irbesartan (irbesartan [...] EST With: Beatriz CASON, Inez Funes Where: [facility] [address] [facility] [address] [place] [address]- Wednesday 10:00 AM EST With: Hermes CASON, Demetrius Rosa Where: [address] [phone]- Wednesday 2:30 PM EDT With: Where: [address] [address]- Medications What How Much When Why Instructions [...] fluticasone nasal (fluticasone Nasal 0.05 mg/ inh [place]) See instructions USE 1 SPRAY IN BOTH [...] BID, # 20 cap(s), Refills(s) 0, Pharmacy: [facility][id number], 160, cm, 01/10/24 9:43:00 EDT, Height/Length Dosing, 77.8, kg, 01/10/24 9:43:00 EDT, Weight Dosing Follow-up No qualifying data available Problem List/Past Medical History Ongoing BMI 29.0-29.9,adult Cervical lymphadenopathy Cervical spondylosis Chronic GERD Coronary artery disease involving [place] coronary artery 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 Household alcohol concerns: No., 11/08/2023 [facility] (more content not included)... Normal [facility] [...] mg Tab) fluticasone nasal (Flonase 0.05 mg/inh Campus) furosemide (furosemide 20 mg Tab) irbesartan (irbesartan [...] AM EDT With: Demetrius Cooper MD Where: [address] [address]- 2023 2:45 PM EST With: Inez Henderson MD Where: [address] [place] [address]- Wednesday 10:00 AM EST With: Demetrius Cooper MD Where: [address] [address]- Wednesday 2:30 PM EDT With: Where: [address] [address]- Medications What How Much When Why Instructions [...] Unchanged fluticasone nasal (Flonase 0.05 mg/ inh Campus) 1 Sprays Nasal Inhalation 2 times a [...] By Mouth Every day Unchanged Misc Prescription ([facility] [place] See instructions one touch ultra test strips test sugars once a day Unchanged Misc Prescription ([facility] Prescription) See instructions one touch ultra lancets Use to test sugars once a day Unchanged multivitamin with minerals (Multivitamin, Therapeutic w/ Minerals) By Mouth Every day Unchanged Non-Formulary Medication ([facility]) Transdermal Therapeutics up to four times [...] BID, # 20 cap(s), Refills(s) 0, Pharmacy: [facility] #[id number], 160, cm, 01/10/24 9:43:00 EDT, Height/Length Dosing, 77.8, kg, 01/10/24 9:43:00 EDT, Weight Dosing Follow-up No qualifying data available Problem List/Past Medical History Ongoing BMI 29.0-29.9,adult Cervical lymphadenopathy Cervical spondylosis Chronic GERD Coronary artery disease involving [place] coronary artery of [place] heart without angina pectoris Diabetic autonomic neuropathy [...] q4hr, PRN, 1 refills Flonase 0.05 mg/inh Campus, 1 spray(s), Nasal, BID furosemide 20 mg [...] 01/10/24 10:38 EDT CNPNon 04-05-2023 CNPN Telephone ([id number]) ----- JEREMIE BENNETT ([id number]) 1940 M Date Time Provider Department 04/05/23 VAISHALI PRINGLE [id number] During your visit today, we recorded the following information about you: Lolly Dumont 04/05/2023 9:55 AM Signed Received records from [facility]. Reports for imaging listed below scanned. 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 - clopidogrel (PLAVIX) 75 mg tablet - furosemide (LASIX) 20 mg tablet Take 20 mg by mouth. - fluticasone (FLONASE) 50 mcg/actuation nasal spray 1 Campus. - omeprazole (PRILOSEC) 40 mg capsule Take [...] Encounter Status:Closed by LAMONTE COUCH on 04/06/23 [facility] CNOVnnamdi 04-01-2023 OV Office Visit ([id number] ) ----- JEREMIE BENNETT ([id number]) 1940 M Date Time Provider Department 04/01/23 1:00 PM VAISHALI PRINGLE [id number] During your visit today, we recorded the [...] GI re (more content not included)... Normal [facility] CHEMISTRYOrdered By: SYSTEM SYSTEM on 03-10-2023 [...] mL/min/1.73 m2 Normal >=59mL/min /1.73 m2 [facility] Comment on above: Interpretive Data: [...] Negative 3 (03/10/23 12:45 PM) Normal Negative [facility] Comment on above: Interpretive Data: T he semi-quantitative detection of elevated levels of fecal lactoferrin is a marker for fecal leukocytes and an indication of intestinal inflammation. CHEMISTRYOrdered By: Yash Shah on 11-23-2022 Albumin DL <= 20 mg/L (U) [Mass/Vol] microgram/mL Normal 0.0 - 19.0 mcg/mL [facility] Remisol Albumin Elph (U) [Mass fraction] mg/dL Invalid Interpretation Code [facility] Remisol Creatinine (U) [Mass/Vol] 15.9 mg/dL Invalid Interpretation Code [facility] S U Prot/Creat Ratio UTC Invalid Interpretation Code 0.00 - 200.00 [facility] Comment on above: Result Comment: Unab le to calculate due to Protein being less than analyzer reportable range. CBC AUTO DIFFon 09-29-2022 BASO # 0.1 103/ul Normal 0.0-0.1 [facility] Comment on above: Performed By: #### C BC #### [facility] [address] [address] [address] Ramsey Sanchez Basophils/100 WBC (Bld) 0.7 % Normal 0.2-2.0 [facility] Comment on above: Performed By: #### C BC #### [facility] [address] [address] [address] Ramsey Sanchez EO # 0.2 103/ul Normal 0.0-0.7 [facility] Comment on above: Performed By: #### C BC #### [facility] [address] [place] [address] Dr. Ramsey Sanchez Eosinophils/100 WBC (Bld) 1.5 % Normal 0.9-7.0 [facility] Comment on above: Performed By: #### C BC #### [facility] [address] [place] [address] Dr. Ramsey Sanchez Erythrocyte distribution width (RBC) [Ratio] 13.6 % Normal 11.0-15.0 [facility] Comment on above: Performed By: #### C BC #### [facility] [address] [place] [address] Dr. Ramsey Sanchez Hematocrit (Bld) [Volume fraction] 43.5 % Normal 42.0-54.0 [facility] Comment on above: Performed By: #### C BC #### [facility] [address] [place] [address] Dr. Ramsey Sanchez Hemoglobin (Bld) [Mass/Vol] 13.9 g/dL Critically low 14.0-18.0 [facility] Comment on above: Performed By: #### C BC #### [facility] [address] [place] [address] Dr. Ramsey Sanchez IG # 0.29 10e3/ul Critically high 0.00-0.03 [facility] Comment on above: Performed By: #### C BC #### [facility] [address] [place] [address] Dr. Ramsey Sanchez IG % 2.9 % Critically high 0.0-0.5 [facility] Comment on above: Performed By: #### C BC #### [facility] [address] [place] [address] Dr. Ramsey Sanchez LYMPH # 2.1 103/ul Normal 1.2-3.8 [facility] Comment on above: Performed By: #### C BC #### [facility] [address] [place] [address] Dr. Ramsey Sanchez Lymphocytes/100 WBC (Bld) 20.8 % Normal 20.5-60.0 [facility] Comment on above: Performed By: #### C BC #### [facility] [address] [place] [address] Dr. Ramsey Sanchez MANUAL DIFF REQ NO Normal [facility] Comment on above: Performed By: #### C BC #### [facility] [address] [place] [address] Dr. Ramsey Sanchez MCH (RBC) [Entitic mass] 29.6 pg Normal 25.9-34.0 [facility] Comment on above: Performed By: #### C BC #### [facility] [address] [place] [address] Dr. Ramsey Sanchez MCHC (RBC) [Mass/Vol] 32.0 g/dL Normal 29.9-35.2 [facility] Comment on above: Performed By: #### C BC #### [facility] [address] [place] [address] Dr. Ramsey Sanchez MCV (RBC) [Entitic vol] 92.6 fL Normal 80.0-94.0 [facility] Comment on above: Performed By: #### C BC #### [facility] [address] [place] [address] Dr. Ramsey Sanchez MONO # 0.8 103/ul Normal 0.3-0.8 [facility] Comment on above: Performed By: #### C BC #### [facility] [address] [place] [address] Dr. Ramsey Sanchez Monocytes/100 WBC (Bld) 8.3 % Normal 1.7-12.0 [facility] Comment on above: Performed By: #### C BC #### [facility] [address] [place] [address] Dr. Ramsey Sanchez NEUT # 6.5 103/ul Normal 1.4-6.5 [facility] Comment on above: Performed By: #### C BC #### [facility] [address] [place] [address] Dr. Ramsey Sanchez Neutrophils/100 WBC (Bld) 65.8 % Normal 43.0-75.0 [facility] Comment on above: Performed By: #### C BC #### [facility] [address] [place] [address] Dr. Ramsey Sanchez Platelet mean volume (Bld) [Entitic vol] 11.1 fL Normal 9.5-13.5 [facility] Comment on above: Performed By: #### C BC #### [facility] [address] [place] [address] Dr. Ramsey Sanchez PLT 198 103/ul Normal 150-450 [facility] Comment on above: Performed By: #### C BC #### [facility] [address] [place] [address] Dr. Ramsey Sanchez RBC 4.70 106/ul Normal 4.70-6.10 [facility] Comment on above: Performed By: #### C BC #### [facility] [address] [place] [address] Dr. Ramsey Sanchez WBC 9.9 103/ul Normal 4.0-11.0 [facility] Comment on above: Performed By: #### C BC #### [facility] [address] [place] [address] Dr. Ramsey Sanchez ER URINE PROFILEon 3 Bilirubin Ql (U) Negative Normal NEGATIVE [facility] Comment on above: Performed By: #### E RUR #### [facility] [address] [place] [address] Dr. Ramsey Sanchez Clarity (U) CLEAR Normal CLEAR [facility] Comment on above: Performed By: #### E RUR #### [facility] [address] [place] [address] Dr. Ramsey Sanchez Color (U) YELLOW Normal YELLOW [facility] Comment on above: Performed By: #### E RUR #### [facility] [address] [place] [address] Dr. Ramsey IVORY A micrscopic examina tion will be performed if indicated. Normal [facility] Comment on above: Performed By: #### E RUR #### [facility] [address] [place] [address] Dr. Ramesy Sanchez Glucose Ql (U) Negative Normal NEGATIVE [facility] Comment on above: Performed By: #### E RUR #### [facility] [address] [place] [address] Dr. Ramsey Sanchez Hemoglobin Ql (U) Negative Normal NEGATIVE [facility] Comment on above: Performed By: #### E RUR #### [facility] [address] [place] [address] Dr. Ramsey Sanchez Ketones Ql (U) Negative Normal NEGATIVE [facility] Comment on above: Performed By: #### E RUR #### [facility] [address] [place] [address] Dr. Ramsey Sanchez LEUKOCYTES Negative Normal NEGATIVE [facility] Comment on above: Performed By: #### E RUR #### [facility] [address] [place] [address] Dr. Ramsey Sanchez Nitrite Ql (U) Negative Normal NEGATIVE [facility] Comment on above: Performed By: #### E RUR #### [facility] [address] [place] [address] Dr. Ramsey Sanchez pH (U) 5.5 [pH] Normal 5-9 [facility] Comment on above: Performed By: #### E RUR #### [facility] [address] [place] [address] Dr. Ramsey Sanchez SPEC GRAVITY 1.020 Normal 1.005-<=1. 025 [facility] Comment on above: Performed By: #### E RUR #### [facility] [address] [place] [address] Dr. Ramsey Sanchez UA PROTEIN Negative Normal NEGATIVE/ TRACE [facility] Comment on above: Performed By: #### E RUR #### [facility] [address] [place] [address] Dr. Ramsey Sanchez UR MICRO IND NOT INDICATED Normal [facility] Comment on above: Performed By: #### E RUR #### [facility] [address] [place] [address] Dr. Ramsey Sanchez Urobilinogen Qn (U) 0.2 {Leatha'U}/dL Normal 0.2 - 1. 0 [facility] Comment on above: Performed By: #### E RUR #### [facility] [address] [place] [address] Dr. Ramsey Sanchez LACTATE/LACTIC ACIDon 2022 Lactate [Moles/Vol] 1.7 mmol/L Normal 0.4-2.0 [facility] Comment on above: Performed By: #### L ACT #### [facility] [address] [place] [address] Dr. Ramsey Sanchez PROF 14(COMP METB)on 023 Albumin [Mass/Vol] 3.1 g/dL Critically low 3.4-5.0 [facility] Comment on above: Performed By: #### C LISANDRO, HSTROPN #### [facility] [address] [place] [address] Dr. Ramsey Sanchez Albumin/Globulin [Mass ratio] 0.8 {ratio} Normal [facility] Comment on above: Performed By: #### C MP, HSTROPN #### [facility] [address] [place] [address] Dr. Ramsey Sanchez ALP [Catalytic activity/Vol] 73 U/L Normal 46-116 [facility] Comment on above: Performed By: #### C LISANDRO, HSTROPN #### [facility] [address] [place] [address] Dr. Ramsey Sanchez ALT [Catalytic activity/Vol] 22 U/L Normal 16-63 [facility] Comment on above: Performed By: #### C MP, HSTROPN #### [facility] [address] [address] [address] Ramsey Sanchez Anion gap [Moles/Vol] 13.5 mmol/L Normal [facility] Comment on above: Performed By: #### C MP, HSTROPN #### [facility] [address] [place] [address] Dr. Ramsey Sanchez AST [Catalytic activity/Vol] 26 U/L Normal 15-37 [facility] Comment on above: Performed By: #### C MP, HSTROPN #### [facility] [address] [place] [address] Dr. Ramsey Sanchez Bilirubin [Mass/Vol] 0.4 mg/dL Normal 0.2-1.0 [facility] Comment on above: Performed By: #### C MP, HSTROPN #### [facility] [address] [place] [address] Dr. Ramsey Sanchez Calcium [Mass/Vol] 8.4 mg/dL Critically low 8.5-10.1 [facility] Comment on above: Performed By: #### C MP, HSTROPN #### [facility] [address] [place] [address] Dr. Ramsey Sanchez Chloride [Moles/Vol] 107 mmol/L Normal 98-107 [facility] Comment on above: Performed By: #### C MP, HSTROPN #### [facility] [address] [place] [address] Dr. Ramsey Sanchez CO2 [Moles/Vol] 26.1 mmol/L Normal 21.0-32.0 [facility] Comment on above: Performed By: #### C MP, HSTROPN #### [facility] [address] [place] [address] Dr. Ramsey Sanchez Creatinine [Mass/Vol] 0.94 mg/dL Normal 0.70-1.30 [facility] Comment on above: Performed By: #### C MP, HSTROPN #### [facility] [address] [place] [address] Dr. Ramsey Sanchez EGFR-AF [facility] >60 Normal >=60 [facility] Comment on above: Performed By: #### C MP, HSTROPN #### [facility] [address] [place] [address] Dr. Ramsey Sanchez EGFR-NON AF [facility] >60 Normal >=60 [facility] Comment on above: Performed By: #### C MP, HSTROPN #### [facility] [address] [place] [address] Dr. Ramsey Sanchez Globulin (S) [Mass/Vol] 3.7 g/dL Normal [facility] Comment on above: Performed By: #### C MP, HSTROPN #### [facility] [address] [place] [address] Dr. Ramsey Sanchez Glucose [Mass/Vol] 118 mg/dL Critically high 74-106 [facility] Comment on above: Performed By: #### C MP, HSTROPN #### [facility] [address] [place] [address] Dr. Ramsey Sanchez Potassium [Moles/Vol] 3.6 mmol/L Normal 3.5-5.1 [facility] Comment on above: Performed By: #### C LISANDRO, HSTROPN #### [facility] [address] [place] [address] Dr. Ramsey aSnchez Protein [Mass/Vol] 6.8 g/dL Normal 6.4-8.2 [facility] Comment on above: Performed By: #### C MP, HSTROPN #### [facility] [address] [place] [address] Dr. Ramsey Sanchez Sodium [Moles/Vol] 143 mmol/L Normal 136-145 [facility] Comment on above: Performed By: #### C MP, HSTROPN #### [facility] [address] [place] [address] Dr. Ramsey Sanchez Urea nitrogen [Mass/Vol] 19.0 mg/dL Critically high 7.0-18.0 [facility] Comment on above: Performed By: #### C MP, HSTROPN #### [facility] [id number] [address] Ramsey Sanchez Urea nitrogen/Creatinine [Mass ratio] 20.2 mg/mg Normal [facility] Comment on above: Performed By: #### C LISANDRO, HSTROPN #### [facility] [address] [address] [address] Ramsey Sanchez TROPONIN, HIGH SENSITIVITYon 09-29-2022 HSTROP 9.8 pg/mL Normal 4.0-76.1 [facility] Comment on above: Result Comment: CUT- OFF POINTS HAVE BEEN ESTABLISHED BASED ON THE FOURTH UNIVERSAL DEFINITIONS OF MYOCARDIAL INFARCTION. THE UPPER REFERENCE LIMIT (URL) OF TROPONIN, DEFINED THE 99TH PERCENTILE OF cTnI DISTRIBUTION IN A REFERENCE POPULATION, HAS BEEN CONFIRMED THE DECISION THRESHOLD FOR OR DIAGNOSIS. Performed By: #### C LISANDRO, HSTROPN #### [facility] [address] [address] [address] Ramsey Sanchez XR CHEST 1 Von [...] hardware and overlying objects out of the [id number]. Electronically authenticated by: ALANNA CARLOS Date: 2022-09-29 16:37 Normal [facility] BNPon 09-25-2022 Natriuretic peptide B (Bld) [Mass/Vol] 720.0 pg/mL Normal <=1,800.0 [facility] Comment on above: Performed By: #### C XSTOOL #### [facility] [address] [place] [address] Dr. Ramsey Sanchez CARDIAC RAFI ADMITon 023 CK [Catalytic activity/Vol] 198 U/L Normal 39-308 [facility] Comment on above: Performed By: #### C XSTOOL #### [facility] [address] [place] [address] Dr. Ramsey Sanchez CK.MB [Mass/Vol] 2.62 ng/mL Normal <=3.60 [facility] Comment on above: Performed By: #### C XSTOOL #### [facility] [address] [place] [address] Dr. Ramsey Sanchez HSTROP 8.8 pg/mL Normal 4.0-76.1 [facility] Comment on above: Result Comment: CUT- OFF POINTS HAVE BEEN ESTABLISHED BASED ON THE FOURTH UNIVERSAL DEFINITIONS OF MYOCARDIAL INFARCTION. THE UPPER REFERENCE LIMIT (URL) OF TROPONIN, DEFINED THE 99TH PERCENTILE OF cTnI DISTRIBUTION IN A REFERENCE POPULATION, HAS BEEN CONFIRMED THE DECISION THRESHOLD FOR OR DIAGNOSIS. Performed By: #### C XSTOOL #### [facility] [address] [place] [address] Dr. Ramsey Sanchez MARILYN 69 ng/mL Normal 16-96 [facility] Comment on above: Performed By: #### C XSTOOL #### [facility] [address] [place] [address] Dr. Ramsey Sanchez CBC AUTO DIFFon 09-25-2022 BASO # 0.0 103/ul Normal 0.0-0.1 [facility] Comment on above: Performed By: #### C BC #### [facility] [address] [place] [address] Dr. Ramsey Sanchez Basophils/100 WBC (Bld) 0.2 % Normal 0.2-2.0 [facility] Comment on above: Performed By: #### C BC #### [facility] [address] [place] [address] Dr. Ramsey Sanchez EO # 0.0 103/ul Normal 0.0-0.7 [facility] Comment on above: Performed By: #### C BC #### [facility] [address] [place] [address] Dr. Ramsey Sanchez Eosinophils/100 WBC (Bld) 0.1 % Critically low 0.9-7.0 [facility] Comment on above: Performed By: #### C BC #### [facility] [address] [place] [address] Dr. Ramsey Sanchez Erythrocyte distribution width (RBC) [Ratio] 14.0 % Normal 11.0-15.0 [facility] Comment on above: Performed By: #### C BC #### [facility] [address] [place] [address] Dr. Ramsey Sanchez Hematocrit (Bld) [Volume fraction] 45.4 % Normal 42.0-54.0 [facility] Comment on above: Performed By: #### C BC #### [facility] [address] [place] [address] Dr. Ramsey Sanchez Hemoglobin (Bld) [Mass/Vol] 14.4 g/dL Normal 14.0-18.0 [facility] Comment on above: Performed By: #### C BC #### [facility] [address] [place] [address] Dr. Ramsey Sanchez IG # 0.08 10e3/ul Critically high 0.00-0.03 [facility] Comment on above: Performed By: #### C BC #### [facility] [address] [place] [address] Dr. Ramsey Sanchez IG % 0.9 % Critically high 0.0-0.5 [facility] Comment on above: Performed By: #### C BC #### [facility] [address] [place] [address] Dr. Ramsey Sanchez LYMPH # 1.6 103/ul Normal 1.2-3.8 [facility] Comment on above: Performed By: #### C BC #### [facility] [address] [place] [address] Dr. Ramsey Sanchez Lymphocytes/100 WBC (Bld) 17.9 % Critically low 20.5-60.0 [facility] Comment on above: Performed By: #### C BC #### [facility] [address] [place] [address] Dr. Ramsey Sanchez MANUAL DIFF REQ NO Normal [facility] Comment on above: Performed By: #### C BC #### [facility] [address] [place] [address] Dr. Ramsey Sanchez MCH (RBC) [Entitic mass] 29.8 pg Normal 25.9-34.0 [facility] Comment on above: Performed By: #### C BC #### [facility] [address] [place] [address] Dr. Ramsey Sanchez MCHC (RBC) [Mass/Vol] 31.7 g/dL Normal 29.9-35.2 [facility] Comment on above: Performed By: #### C BC #### [facility] [address] [place] [address] Dr. Ramsey Sanchez MCV (RBC) [Entitic vol] 94.0 fL Normal 80.0-94.0 [facility] Comment on above: Performed By: #### C BC #### [facility] [address] [place] [address] Dr. Ramsey Sanchez MONO # 0.9 103/ul Critically high 0.3-0.8 [facility] Comment on above: Performed By: #### C BC #### [facility] [address] [place] [address] Dr. Ramsey Sanchez Monocytes/100 WBC (Bld) 9.6 % Normal 1.7-12.0 [facility] Comment on above: Performed By: #### C BC #### [facility] [address] [place] [address] Dr. Ramsey Sanchez NEUT # 6.3 103/ul Normal 1.4-6.5 [facility] Comment on above: Performed By: #### C BC #### [facility] [address] [place] [address] Dr. Ramsey Sanchez Neutrophils/100 WBC (Bld) 71.3 % Normal 43.0-75.0 [facility] Comment on above: Performed By: #### C BC #### [facility] [address] [address] [address] Ramsey Sanchez Platelet mean volume (Bld) [Entitic vol] 11.0 fL Normal 9.5-13.5 [facility] Comment on above: Performed By: #### C BC #### [facility] [address] [place] [address] Dr. Ramsey Sanchez PLT 203 103/ul Normal 150-450 [facility] Comment on above: Performed By: #### C BC #### [facility] [address] [address] [address] Ramsey Sanchez RBC 4.83 106/ul Normal 4.70-6.10 [facility] Comment on above: Performed By: #### C BC #### [facility] [address] [place] [address] Dr. Ramsey Sanchez WBC 8.9 103/ul Normal 4.0-11.0 [facility] Comment on above: Performed By: #### C BC #### [facility] [address] [place] [address] Dr. Ramsey Sanchez LACTATE/LACTIC ACIDon 2022 Lactate [Moles/Vol] 1.0 mmol/L Normal 0.4-2.0 [facility] Comment on above: Performed By: #### C BC #### [facility] [address] [place] [address] Dr. Ramsey Sanchez PROF 14(COMP METB)on 023 Albumin [Mass/Vol] 3.7 g/dL Normal 3.4-5.0 [facility] Comment on above: Performed By: #### C XSTOOL #### [facility] [address] [place] [address] Dr. Ramsey Sanchez Albumin/Globulin [Mass ratio] 0.9 {ratio} Normal [facility] Comment on above: Performed By: #### C XSTOOL #### [facility] [address] [place] [address] Dr. Ramsey Sanchez ALP [Catalytic activity/Vol] 68 U/L Normal 46-116 [facility] Comment on above: Performed By: #### C XSTOOL #### [facility] [address] [address] [address] Ramsey Sanchez ALT [Catalytic activity/Vol] 23 U/L Normal 16-63 [facility] Comment on above: Performed By: #### C XSTOOL #### [facility] [address] [address] [address] Ramsey Sanchez Anion gap [Moles/Vol] 12.6 mmol/L Normal [facility] Comment on above: Performed By: #### C XSTOOL #### [facility] [address] [address] [address] Ramsey Sanchez AST [Catalytic activity/Vol] 21 U/L Normal 15-37 [facility] Comment on above: Performed By: #### C XSTOOL #### [facility] [address] [address] [address] Ramsey Sanchez Bilirubin [Mass/Vol] 0.3 mg/dL Normal 0.2-1.0 [facility] Comment on above: Performed By: #### C XSTOOL #### [facility] [address] [address] [address] Ramsey Sanchez Calcium [Mass/Vol] 8.8 mg/dL Normal 8.5-10.1 [facility] Comment on above: Performed By: #### C XSTOOL #### [facility] [address] [place] [address] Dr. Ramsey Sanchez Chloride [Moles/Vol] 104 mmol/L Normal 98-107 [facility] Comment on above: Performed By: #### C XSTOOL #### [facility] [address] [address] [address] Ramsey Sanchez CO2 [Moles/Vol] 26.7 mmol/L Normal 21.0-32.0 [facility] Comment on above: Performed By: #### C XSTOOL #### [facility] [address] [address] [address] Ramsey Sanchez Creatinine [Mass/Vol] 1.27 mg/dL Normal 0.70-1.30 [facility] Comment on above: Performed By: #### C XSTOOL #### [facility] [address] [address] [address] Ramsey Sanchez EGFR-AF [facility] >60 Normal >=60 [facility] Comment on above: Performed By: #### C XSTOOL #### [facility] [address] [address] [address] Ramsey Sanchez EGFR-NON AF [facility] 54 mL/min/1.73m2 Critically low >=60 [facility] Comment on above: Performed By: #### C XSTOOL #### [facility] [address] [address] [address] Ramsey Sanchez Globulin (S) [Mass/Vol] 3.9 g/dL Normal [facility] Comment on above: Performed By: #### C XSTOOL #### [facility] [address] [address] [address] Ramsey Sanchez Glucose [Mass/Vol] 114 mg/dL Critically high 74-106 [facility] Comment on above: Performed By: #### C XSTOOL #### [facility] [address] [address] [address] Ramsey Sanchez Potassium [Moles/Vol] 4.3 mmol/L Normal 3.5-5.1 [facility] Comment on above: Performed By: #### C XSTOOL #### [facility] [address] [place] [address] Dr. Ramsey Sanchez Protein [Mass/Vol] 7.6 g/dL Normal 6.4-8.2 [facility] Comment on above: Performed By: #### C XSTOOL #### [facility] [address] [address] [address] Ramsey Sanchez Sodium [Moles/Vol] 139 mmol/L Normal 136-145 [facility] Comment on above: Performed By: #### C XSTOOL #### [facility] [address] [address] [address] Ramsey Sanchez Urea nitrogen [Mass/Vol] 19.0 mg/dL Critically high 7.0-18.0 [facility] Comment on above: Performed By: #### C XSTOOL #### [facility] [address] [place] [address] Dr. Ramsey Sanchez Urea nitrogen/Creatinine [Mass ratio] 15.0 mg/mg Normal [facility] Comment on above: Performed By: #### C XSTOOL #### [facility] [address] [place] [address] Dr. Ramsey Sanchez XR CHEST 1 Von [...] by: TRACY HIGHTOWER Date: 2022-09-24 23:29 Normal [facility] COVID + FLU Quick Testingon 09-22-2022 SARS-CoV-2 (COVID-19) RNA MICHELLE+probe Ql (Unsp spec) Positive [employer] [facility] [employer] Other COVID + FLU Quick Testing Negative [facility] [employer] Other POINT OF CARE GLUCOSEon - Glucose [Mass/Vol] 146 mg/dL Critically high 74-[address] [facility] Comment on above: Performed By: #### C XSTOOL #### [facility] [address] [place] [address] Dr. Ramsey Sanchez US ARTERY UP EXT [...] ERWIN FALCON Date: 2022-04-16 17:21 Normal [facility] LACTOFERRIN FECAL QUANTon Lactoferrin, Fecal, Quant. 1.43 ug/mL(g) Normal 0.00-7.24 [facility] Comment on above: Result Comment: . [...] (IBS). Performed By: #### C XSTOOL #### [facility] [address] [place] [address] Dr. Ramsey Sanchez CBC AUTO DIFFon 03-10-2022 BASO # 0.1 103/ul Normal 0.0-0.1 [facility] Comment on above: Performed By: #### C BC #### [facility] [address] [place] [address] Dr. Ramsey Sanchez Basophils/100 WBC (Bld) 0.9 % Normal 0.2-2.0 [facility] Comment on above: Performed By: #### C BC #### [facility] [address] [place] [address] Dr. Ramsey Sanchez EO # 0.3 103/ul Normal 0.0-0.7 [facility] Comment on above: Performed By: #### C BC #### [facility] [address] [place] [address] Dr. Ramsey Sanchez Eosinophils/100 WBC (Bld) 2.6 % Normal 0.9-7.0 [facility] Comment on above: Performed By: #### C BC #### [facility] [address] [place] [address] Dr. Ramsey Sanchez Erythrocyte distribution width (RBC) [Ratio] 13.2 % Normal 11.0-15.0 [facility] Comment on above: Performed By: #### C BC #### [facility] [address] [place] [address] Dr. Ramsey Sanchez Hematocrit (Bld) [Volume fraction] 46.1 % Normal 42.0-54.0 [facility] Comment on above: Performed By: #### C BC #### [facility] [address] [place] [address] Dr. Ramsey Sanchez Hemoglobin (Bld) [Mass/Vol] 14.5 g/dL Normal 14.0-18.0 [facility] Comment on above: Performed By: #### C BC #### [facility] [address] [place] [address] Dr. Ramsey Sanchez IG # 0.15 10e3/ul Critically high 0.00-0.03 [facility] Comment on above: Performed By: #### C BC #### [facility] [address] [place] [address] Dr. Ramsey Sanchez IG % 1.3 % Critically high 0.0-0.5 [facility] Comment on above: Performed By: #### C BC #### [facility] [address] [place] [address] Dr. Ramsey Sanchez LYMPH # 2.7 103/ul Normal 1.2-3.8 [facility] Comment on above: Performed By: #### C BC #### [facility] [address] [place] [address] Dr. Ramsey Sanchez Lymphocytes/100 WBC (Bld) 23.0 % Normal 20.5-60.0 [facility] Comment on above: Performed By: #### C BC #### [facility] [address] [place] [address] Dr. Ramsey Sanchez MANUAL DIFF REQ NO Normal [facility] Comment on above: Performed By: #### C BC #### [facility] [address] [place] [address] Dr. Ramsey Sanchez MCH (RBC) [Entitic mass] 31.0 pg Normal 25.9-34.0 [facility] Comment on above: Performed By: #### C BC #### [facility] [address] [address] [address] Ramsey Sanchez MCHC (RBC) [Mass/Vol] 31.5 g/dL Normal 29.9-35.2 [facility] Comment on above: Performed By: #### C BC #### [facility] [address] [address] [address] Ramsey Sanchez MCV (RBC) [Entitic vol] 98.5 fL Critically high 80.0-94.0 [facility] Comment on above: Performed By: #### C BC #### [facility] [address] [address] [address] Ramsey Sanchez MONO # 0.9 103/ul Critically high 0.3-0.8 [facility] Comment on above: Performed By: #### C BC #### [facility] [address] [address] [address] Ramsey Sanchez Monocytes/100 WBC (Bld) 7.4 % Normal 1.7-12.0 [facility] Comment on above: Performed By: #### C BC #### [facility] [address] [place] [address] Dr. Ramsey Sanchez NEUT # 7.6 103/ul Critically high 1.4-6.5 [facility] Comment on above: Performed By: #### C BC #### [facility] [address] [address] [address] Ramsey Sanchez Neutrophils/100 WBC (Bld) 64.8 % Normal 43.0-75.0 [facility] Comment on above: Performed By: #### C BC #### [facility] [address] [address] [address] Ramsey Sanchez Platelet mean volume (Bld) [Entitic vol] 11.5 fL Normal 9.5-13.5 [facility] Comment on above: Performed By: #### C BC #### [facility] [address] [place] [address] Dr. Ramsey Sanchez PLT 243 103/ul Normal 150-450 [facility] Comment on above: Performed By: #### C BC #### [facility] [address] [address] [address] Ramsey Sanchez RBC 4.68 106/ul Critically low 4.70-6.10 [facility] Comment on above: Performed By: #### C BC #### [facility] [address] [address] [address] Ramsey Sanchez WBC 11.7 103/ul Critically high 4.0-11.0 [facility] Comment on above: Performed By: #### C BC #### [facility] [address] [address] [address] aRmsey Sanchez GLYCOHEMOGLOBIN A1Con 2021 ADA RECOMMENDATION SEE BELOW Normal [facility] Comment on above: Result Comment: ADA RECOMMENDED LIMIT 4.0 - 6.0 ADA THERAPEUTIC TARGET < 7.0 ACTION SUGGESTED > 7.0 Performed By: #### A 1C #### [facility] [address] [address] [address] Ramsey Sanchez Glucose [Mass/Vol] 123 mg/dL Normal [facility] Comment on above: Performed By: #### A 1C #### [facility] [address] [address] [address] Ramsey Sanchez HbA1c (Bld) [Mass fraction] 5.9 % Normal 4.5-6.2 [facility] Comment on above: Performed By: #### A 1C #### [facility] [address] [address] [address] Ramsey Sanchez LIPID PROFILEon 03-10-2022 CHOL-HDL RATIO NORM SEE BELOW Normal [facility] Comment on above: Result Comment: 3.3 - 4.4 LOW RISK 4.4 - 7.1 AVERAGE RISK 7.1 - 11.0 MODERATE RISK >11.0 HIGH RISK Performed By: #### C BC #### [facility] [address] [place] [address] Dr. Ramsey Sanchez Cholesterol [Mass/Vol] 121 mg/dL Normal <=200 [facility] Comment on above: Performed By: #### C BC #### [facility] [address] [place], [place] [address] Dr. Ramsey Sanchez Cholesterol in HDL [Mass/Vol] 30 mg/dL Critically low 40-60 [facility] Comment on above: Performed By: #### C BC #### [facility] [address] [place], [place] [address] Dr. Ramsey Sanchez Cholesterol in LDL [Mass/Vol] 47.6 mg/dL Normal [facility] Comment on above: Performed By: #### C BC #### [facility] [address] [address] [address] Ramsey Sanchez Cholesterol.total/Chol esterol in HDL [Mass ratio] 4.0 {ratio} Normal [facility] Comment on above: Performed By: #### C BC #### [facility] [address] [address] [address] Ramsey Sanchez HDL NORMAL > or = 60 mg/dl - LO W CARDIOVASCULAR RISK <40 mg/dl - HIGH CARDIOVASCULAR RISK Normal [facility] Comment on above: Performed By: #### C BC #### [facility] [address] [address] [address] Ramsey Sanchez LDL CALC NORMAL SEE BELOW Normal [facility] Comment on above: Result Comment: <100 mg/dl OPTIMAL 100 - 129 mg/dl NEAR OR ABOVE OPTIMAL 130 - 159 mg/dl BORDERLINE HIGH 160 - 189 mg/dl HIGH >190 mg/dl VERY HIGH Performed By: #### C BC #### [facility] [address] [id number] [address] Ramsey Sanchez Triglyceride [Mass/Vol] 217 mg/dL Critically high <=150 [facility] Comment on above: Performed By: #### C BC #### [facility] [address] [address] [address] Ramsey Sanchez VLDL CALC 43.4 mg/dL Normal [facility] Comment on above: Performed By: #### C BC #### [facility] [address] [place], [place] [address] Dr. Ramsey Sanchez LIVER PROFILEon 03-10-2022 Albumin [Mass/Vol] 3.9 g/dL Normal 3.4-5.0 [facility] Comment on above: Performed By: #### C BC #### [facility] [address] [place] [address] Dr. Ramsey Sanchez Albumin/Globulin [Mass ratio] 1.1 {ratio} Normal [facility] Comment on above: Performed By: #### C BC #### [facility] [address] [place] [address] Dr. Ramsey Sanchez ALP [Catalytic activity/Vol] 75 U/L Normal 46-116 [facility] Comment on above: Performed By: #### C BC #### [facility] [address] [place] [address] Dr. Ramsey Sanchez ALT [Catalytic activity/Vol] 21 U/L Normal 16-63 [facility] Comment on above: Performed By: #### C BC #### [facility] [address] [place] [address] Dr. Ramsey Sanchez AST [Catalytic activity/Vol] 17 U/L Normal 15-37 [facility] Comment on above: Performed By: #### C BC #### [facility] [address] [place] [address] Dr. Ramsye Sanchez BILI, CONJUGATED 0.1 mg/dL Normal 0.0-0.2 [facility] Comment on above: Performed By: #### C BC #### [facility] [address] [place] [address] Dr. Ramsey Sanchez Bilirubin [Mass/Vol] 0.4 mg/dL Normal 0.2-1.0 [facility] Comment on above: Performed By: #### C BC #### [facility] [address] [place] [address] Dr. Ramsey Sanchez Globulin (S) [Mass/Vol] 3.5 g/dL Normal [facility] Comment on above: Performed By: #### C BC #### [facility] [address] [place] [address] Dr. Ramsey Sanchez Protein [Mass/Vol] 7.4 g/dL Normal 6.4-8.2 [facility] Comment on above: Performed By: #### C BC #### [facility] [address] [address] [address] Ramsey Sanchez MICROALBUMIN, RAND URon 02-15 mALB <1.3 Normal <=30.0 [facility] Comment on above: Performed By: #### M ALBR #### [facility] [address] [address] [address] Ramsey Sanchez PROF CHEM 8 (BAS METB)on Anion gap [Moles/Vol] 12.6 mmol/L Normal [facility] Comment on above: Performed By: #### C BC #### [facility] [address] [address] [address] Ramsey Sanchez Calcium [Mass/Vol] 8.9 mg/dL Normal 8.5-10.1 [facility] Comment on above: Performed By: #### C BC #### [facility] [address] [address] [address] Ramsey Sanchez Chloride [Moles/Vol] 103 mmol/L Normal 98-107 [facility] Comment on above: Performed By: #### C BC #### [facility] [address] [address] [address] Ramsey Sanchez CO2 [Moles/Vol] 28.5 mmol/L Normal 21.0-32.0 [facility] Comment on above: Performed By: #### C BC #### [facility] [address] [address] [address] Ramsey Sanchez Creatinine [Mass/Vol] 0.89 mg/dL Normal 0.70-1.30 [facility] Comment on above: Performed By: #### C BC #### [facility] [address] [address] [address] Ramsey Sanchez EGFR-AF [facility] >60 Normal >=60 [facility] Comment on above: Performed By: #### C BC #### [facility] [address] [address] [address] Ramsey Sanchez EGFR-NON AF [facility] >60 Normal >=60 [facility] Comment on above: Performed By: #### C BC #### [facility] [address] [address] [address] Ramsey Sanchez Glucose [Mass/Vol] 102 mg/dL Normal 74-106 [facility] Comment on above: Performed By: #### C BC #### [facility] [address] [address] [address] Ramsey Sanchez Potassium [Moles/Vol] 4.1 mmol/L Normal 3.5-5.1 [facility] Comment on above: Performed By: #### C BC #### [facility] [address] [address] [address] Ramsey Sanchez Sodium [Moles/Vol] 140 mmol/L Normal 136-145 [facility] Comment on above: Performed By: #### C BC #### [facility] [address] [place] [address] Dr. Ramsey Sanchez Urea nitrogen [Mass/Vol] 16.0 mg/dL Normal 7.0-18.0 [facility] Comment on above: Performed By: #### C BC #### [facility] [address] [place] [address] Dr. Ramsey Sanchez Urea nitrogen/Creatinine [Mass ratio] 18.0 mg/mg Normal [facility] Comment on above: Performed By: #### C BC #### [facility] [address] [place] [address] Dr. Ramsey Sanchez STOOL CULTUREon 03-10-2022 Campylobacter Culture Final report Normal [facility] Comment on above: Performed By: #### C XSTOOL #### [facility] [address] [place] [address] Dr. Ramsey Sanchez E coli Shiga Toxin EIA Negative Normal Negative [facility] Comment on above: Performed By: #### C XSTOOL #### [facility] [address] [place] [address] Dr. Ramsey Sanchez Result 1 Comment Normal [facility] Comment on above: Result Comment: No S almonella or Shigella recovered. Performed By: #### C XSTOOL #### [facility] [address] [place] [address] Dr. Ramsey Sanchez Result Comment: No C ampylobacter species isolated. Salmonella/Shigella Screen Final report Normal [facility] Comment on above: Performed By: #### C XSTOOL #### [facility] [address] [place] [address] Dr. Ramsey Sanchez VITAMIN D 25 OHon 03-10-2022 VIT D 25-OH 40.2 ng/mL Normal [facility] Comment on above: Performed By: #### V ITAD #### [facility] [address] [address] [address] Ramsey Sanchez VIT D RANGES SEE BELOW Normal [facility] Comment on above: Result Comment: <20 ng/mL Vit D deficient 20 - <30 ng/mL Vit D insufficient 30 - 100 ng/mL Vit D sufficient >100 ng/mL Potential Toxicity Performed By: #### V ITAD #### [facility] [address] [place] [address] Dr. Ramsey Sanchez POC GLUCOSE LABon 08-31-2019 Glucose [Mass/Vol] 120 mg/dL High 70-100 [facility] Comment on above: Performed By: #### 8 [id number] #### [facility] [address] [place] [address], [place] Glucose [Mass/Vol] 114 mg/dL High 70-100 [facility] Comment on above: Performed By: #### 8 [id number] #### [facility] [address] [place] [address], [place] Glucose [Mass/Vol] 136 mg/dL High 70-100 [facility] Comment on above: Performed By: #### 8 [id number] #### [facility] [address] [place] [address], [place] BASIC METABOLIC PANELon 08-15 Calcium [Mass/Vol] 9.3 mg/dL Normal 8.6-10.3 [facility] Comment on above: Performed By: #### 0 0071 #### [facility] [address] [place] [address], [place] Chloride [Moles/Vol] 103 mmol/L Normal 98-107 [facility] Comment on above: Performed By: #### 0 0071 #### [facility] [address] [place] [address], [place] CO2 [Moles/Vol] 27 mmol/L Normal 21-31 [facility] Comment on above: Performed By: #### 0 0071 #### [facility] [address] [place] [address], [place] Creatinine [Mass/Vol] 1.04 mg/dL Normal 0.70-1.30 [facility] Comment on above: Performed By: #### 0 0071 #### [facility] [address] [place] [address], [place] GFR/1.73 sq M predicted among blacks MDRD (S/P/Bld) [Vol rate/Area] mL/min/{1.73_m2} Normal >60 [facility] Comment on above: Result Comment: Calc ulation may not be valid for patients over 70 years Performed By: #### 0 0071 #### [facility] [address] [place] [address], [place] GFR/1.73 sq M predicted among non-blacks MDRD (S/P/Bld) [Vol rate/Area] mL/min/{1.73_m2} Normal >60 [facility] Comment on above: Result Comment: Calc ulation may not be valid for patients over 70 years Performed By: #### 0 0071 #### [facility] [address] [place] [address], [place] Glucose [Mass/Vol] 128 mg/dL High 70-100 [facility] Comment on above: Performed By: #### 0 0071 #### [facility] [address] [place] [address], [place] Potassium [Moles/Vol] 4.2 mmol/L Normal 3.5-5.1 [facility] Comment on above: Performed By: #### 0 1 #### [facility] [address] [place] [address], [facility] Sodium [Moles/Vol] 139 mmol/L Normal 136-145 [facility] Comment on above: Performed By: #### 0 1 #### [facility] [address] [place] [address], [facility] Urea nitrogen [Mass/Vol] 20 mg/dL Normal 7-25 [facility] Comment on above: Performed By: #### 0 1 #### [facility] [address] [facility] [address] CBC COMPLETE BLOOD COUNTon 08-30-2019 Erythrocyte distribution width (RBC) [Ratio] 13.9 % Normal 11.5-15.0 [facility] Comment on above: Performed By: #### 5 08 #### [facility] [address] [facility] [address] Hematocrit (Bld) [Volume fraction] 44.9 % Normal 39.0-50.0 [facility] Comment on above: Performed By: #### 5 0608 #### [facility] [address] [facility] [place] [address], [facility] Hemoglobin (Bld) [Mass/Vol] 14.5 g/dL Normal 13.0-17.0 [facility] Comment on above: Performed By: #### 5 0608 #### [facility] [address] [facility] [place] [address], [facility] MCH (RBC) [Entitic mass] 30.7 pg Normal 27.0-33.0 [facility] Comment on above: Performed By: #### 5 0608 #### [facility] [address] [place] [address], [facility] MCHC (RBC) [Mass/Vol] 32.3 g/dL Normal 32.0-35.0 [facility] Comment on above: Performed By: #### 5 0608 #### [facility] [address] [place] [address], [facility] MCV (RBC) [Entitic vol] 95.1 fL Normal 82.0-98.0 [facility] Comment on above: Performed By: #### 5 0608 #### [facility] [address] [place] [address], [facility] Nucleated RBC/100 WBC (Bld) [Ratio] 0 % Normal 0-0 [facility] Comment on above: Performed By: #### 5 0608 #### [facility] [address] [place] [address], [facility] PLAT CNT 238 10*3/uL Normal 150-400 [facility] Comment on above: Performed By: #### 5 0608 #### [facility] [address] [place] [address], [facility] RBC (Bld) [#/Vol] 4.72 10*6/uL Normal 4.20-5.70 [facility] Comment on above: Performed By: #### 5 0608 #### [facility] [address] [place] [address], [facility] WBC (Bld) [#/Vol] 12.83 10*3/uL High 4.00-10.60 [facility] Comment on above: Performed By: #### 5 0608 #### [facility] [address] Cardiovascular Lab Reporton 08-30-2019 Cardiovascular Lab Report [facility] Patient Name: Jeremie Bennett [facility] MR #: [id number] Physician: Margaret Arellano, Department of M.D. Medicine Service Date: 08/30/2019 Division of Birthdate: 1940 Cardiology Room #: [id number] [facility] [address] [address] Cardiovascular Laboratory Report FINAL IMPRESSIONS: 1. 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 2. 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 3. 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 4. 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 Arellano in the [place] office in the next 2 to 4 [...] left common femoral artery was obtained. A 6-Finnish 11 cm sheath was inserted without difficulty. Limited femoral angiography was performed. Bilateral selective coronary angiography was performed using JL4 and JR4 catheters. After reviewing the images, it was elected to proceed with an interventional procedure. A 6-Finnish XB 3.5 guide catheter was advanced over [...] conclude the procedure. Attempts to deploy a 6-Finnish MynxGrip closure device were unsuccessful. Therefore, manual [...] Arellano M.D. Date Trans: 08/30/2019 05:00 P/tristiano [id number] cc: Demetrius Cooper MD [address] [place] [id number] Normal [facility] POC GLUCOSE LABon 08-30-2019 Glucose [Mass/Vol] 172 mg/dL High 70-100 [facility] Comment on above: Performed By: #### [id number] #### [facility] [address] [place] [address], [facility] Glucose [Mass/Vol] 138 mg/dL High 70-100 [facility] Comment on above: Performed By: #### 8 [id number] #### [facility] [address] [place] [address], [facility] Vital Signs Date Time Vital Sign Value Performing Clinician Facility 01-18-2025 09:32-0400 Body height 165.1 cm Veena JeffersCinelandinesh DO Work Phone: [facility] 01-18-2025 09:32-0400 Body mass index (BMI) [Ratio] 24.63 kg/m2 Short FuzepoppyBio[employer]ronicsdilcia DO Work Phone: [facility] 01-18-2025 09:32-0400 Body weight 67.13 kg Short FuzepoppyCinelandinesh DO Work Phone: [facility] 12-26-2024 13:08-0400 Body weight 72.12 kg Demetrius Cooper MD Work Phone: [facility] 12-11-2024 13:30-0400 Body mass index (BMI) [Ratio] 26.65 kg/m2 Mary Schneider MD Work Phone: [facility] 12-11-2024 13:30-0400 Body weight 72.65 kg Mary Schneider MD Work Phone: [facility] 12-11-2024 13:30-0400 Diastolic blood pressure 69 mm[Hg] Mary Schneider MD Work Phone: [facility] 12-11-2024 13:30-0400 Systolic blood pressure 111 mm[Hg] Mary Schneider MD Work Phone: [facility] 11-23-2024 09:57-0400 Body temperature 98 [degF] Demetrius Cooper MD Work Phone: [facility] 11-23-2024 09:57-0400 Body weight 73.02 kg Demetrius Cooper MD Work Phone: [facility] 11-23-2024 09:57-0400 Diastolic blood pressure 64 mm[Hg] Demetrius Cooper MD Work Phone: [facility] 11-23-2024 09:57-0400 Heart rate 68 /min Demetrius Cooper MD Work Phone: [facility] 11-23-2024 09:57-0400 Respiratory rate 18 /min Demetrius Cooper MD Work Phone: [facility] 11-23-2024 09:57-0400 SaO2% (BldA) [Mass fraction] 98 % Demetrius Cooper MD Work Phone: [facility] 11-23-2024 09:57-0400 Systolic blood pressure 103 mm[Hg] Demetrius Cooper MD Work Phone: [facility] 10-11-2024 13:56-0400 Body height 165.1 cm Veena Itzkowitz DO Work Phone: [facility] 10-11-2024 13:56-0400 Body mass index (BMI) [Ratio] 24.63 kg/m2 Veena Itzkowitz DO Work Phone: [facility] 10-11-2024 13:56-0400 Body weight 67.13 kg Veena Itzkowitz DO Work Phone: [facility] 10-04-2024 14:58-0400 Body height 167.64 cm Demetrius Cooper MD Work Phone: [facility] 10-03-2024 12:00-0400 Diastolic blood pressure 63 mm[Hg] Demetrius Cooper MD Work Phone: [facility] 10-03-2024 12:00-0400 Heart rate 63 /min Demetrius Cooper MD Work Phone: [facility] 10-03-2024 12:00-0400 Respiratory rate 16 /min Demetrius Cooper MD Work Phone: [facility] 10-03-2024 12:00-0400 SaO2% (BldA) [Mass fraction] 95 % Demetrius Cooper MD Work Phone: [facility] 10-03-2024 12:00-0400 Systolic blood pressure 131 mm[Hg] Demetrius Cooper MD Work Phone: [facility] 10-03-2024 11:30-0400 Inhaled oxygen flow rate 4 L/min Demetrius Cooper MD Work Phone: [facility] 10-03-2024 10:15-0400 Body height 165.1 cm Demetrius Cooper MD Work Phone: [facility] 10-03-2024 10:15-0400 Body temperature 97.3 [degF] Demetrius Cooper MD Work Phone: [facility] 10-03-2024 10:15-0400 Body weight 67.13 kg Dmeetrius Cooper MD Work Phone: [facility] 09-28-2024 13:47-0400 Body height 165.1 cm Missy Lowe PA Work Phone: [facility] 09-28-2024 13:47-0400 Body mass index (BMI) [Ratio] 24.63 kg/m2 Missy Lowe PA Work Phone: [facility] 09-28-2024 13:47-0400 Body weight 67.13 kg Missy Lowe PA Work Phone: [facility] 09-28-2024 13:47-0400 Diastolic blood pressure 68 mm[Hg] Missy Lowe PA Work Phone: [facility] 09-28-2024 13:47-0400 Systolic blood pressure 110 mm[Hg] Missy Lowe PA Work Phone: [facility] 09-27-2024 13:20-0400 Body height 165.1 cm Veena Itzkowitz DO Work Phone: [facility] 09-27-2024 13:20-0400 Body mass index (BMI) [Ratio] 24.96 kg/m2 Veena Itzkowitz DO Work Phone: [facility] 09-27-2024 13:20-0400 Body weight 68.04 kg Veena Itzkowitz DO Work Phone: [facility] 09-27-2024 13:20-0400 Diastolic blood pressure 62 mm[Hg] Veena Itzkowitz DO Work Phone: [facility] 09-27-2024 13:20-0400 Systolic blood pressure 94 mm[Hg] Veena Itzkowitz DO Work Phone: [facility] 09-26-2024 14:55-0400 Body height 165.1 cm Demetrius Cooper MD Work Phone: [facility] 09-26-2024 14:55-0400 Body mass index (BMI) [Ratio] 24.6 kg/m2 Demetirus Cooper MD Work Phone: [facility] 09-26-2024 14:55-0400 Body temperature 97.8 [degF] Demetrius Cooper MD Work Phone: [facility] 09-26-2024 14:55-0400 Body weight 67.13 kg Demetrius Cooper MD Work Phone: [facility] 09-26-2024 14:55-0400 Diastolic blood pressure 51 mm[Hg] Demetrius Cooper MD Work Phone: [facility] 09-26-2024 14:55-0400 Heart rate 66 /min Demetrius Cooper MD Work Phone: [facility] 09-26-2024 14:55-0400 Systolic blood pressure 85 mm[Hg] Demetrius Cooper MD Work Phone: [facility] 09-20-2024 21:13-0400 Body temperature 97.6 [degF] Demetrius Cooper MD Work Phone: [facility] 09-20-2024 21:13-0400 Diastolic blood pressure 62 mm[Hg] Demetrius Cooper MD Work Phone: [facility] 09-20-2024 21:13-0400 Heart rate 68 /min Demetrius Cooper MD Work Phone: [facility] 09-20-2024 21:13-0400 Respiratory rate 18 /min Demetrius Cooper MD Work Phone: [facility] 09-20-2024 21:13-0400 SaO2% (BldA) [Mass fraction] 96 % Demetrius Cooper MD Work Phone: [facility] 09-20-2024 21:13-0400 Systolic blood pressure 113 mm[Hg] Demetrius Cooper MD Work Phone: [facility] 09-20-2024 15:13-0400 Body height 165.1 cm Demetrius Cooper MD Work Phone: [facility] 09-20-2024 15:13-0400 Body weight 65 kg Demetrius Cooper MD Work Phone: [facility] 09-11-2024 [id number] Body height 165.1 cm Mary Schneider MD Work Phone: [facility] 09-11-2024 13:07-0400 Body mass index (BMI) [Ratio] 24.84 kg/m2 Mary Schneider MD Work Phone: [facility] 09-11-2024 [id number] Body temperature 96.8 [degF] Mary Schnedier MD Work Phone: [facility] 09-11-2024 13:07-0400 Body weight 67.72 kg Mary Schneider MD Work Phone: [facility] 09-11-2024 10:14-0400 Body height 162.56 cm Demetrius Cooper MD Work Phone: [facility] 09-11-2024 10:14-0400 Body mass index (BMI) [Ratio] 25.7 kg/m2 Demetrius Cooper MD Work Phone: [facility] 09-11-2024 10:14-0400 Body weight 68.03 kg Demetrius Cooper MD Work Phone: [facility] 09-11-2024 10:14-0400 Diastolic blood pressure 74 mm[Hg] Demetrius Cooper MD Work Phone: [facility] 09-11-2024 10:14-0400 Heart rate 76 /min Demetrius Coopre MD Work Phone: [facility] 09-11-2024 10:14-0400 SaO2% (BldA) [Mass fraction] 98 % Demetrius Cooper MD Work Phone: [facility] 09-11-2024 10:14-0400 Systolic blood pressure 113 mm[Hg] Demetrius Cooper MD Work Phone: [facility] 08-23-2024 09:49-0400 Body temperature 97.5 [degF] Demetrius Cooper MD Work Phone: [facility] 08-23-2024 09:49-0400 Body weight 72.12 kg Demetrius Cooper MD Work Phone: [facility] 08-23-2024 09:49-0400 Diastolic blood pressure 94 mm[Hg] Demetrius Cooper MD Work Phone: [facility] 08-23-2024 09:49-0400 Heart rate 94 /min Demetrius Cooper MD Work Phone: [facility] 08-23-2024 09:49-0400 Respiratory rate 20 /min Demetrius Cooper MD Work Phone: [facility] 08-23-2024 09:49-0400 SaO2% (BldA) [Mass fraction] 98 % Demetrius Cooper MD Work Phone: [facility] 08-23-2024 09:49-0400 Systolic blood pressure 114 mm[Hg] Demetrius Cooper MD Work Phone: [facility] 08-21-2024 12:53-0400 Body height 167.64 cm Demetrius Cooper MD Work Phone: [facility] 08-21-2024 11:36-0400 Body temperature 98 [degF] Demetrius Cooper MD Work Phone: [facility] 08-21-2024 11:36-0400 Diastolic blood pressure 57 mm[Hg] Demetrius Cooper MD Work Phone: [facility] 08-21-2024 11:36-0400 Heart rate 76 /min Demetrius Cooper MD Work Phone: [facility] 08-21-2024 11:36-0400 Respiratory rate 18 /min Demetrius Cooper MD Work Phone: [facility] 08-21-2024 11:36-0400 SaO2% (BldA) [Mass fraction] 96 % Demetrius Cooper MD Work Phone: [facility] 08-21-2024 11:36-0400 Systolic blood pressure 122 mm[Hg] Demetrius Cooper MD Work Phone: [facility] 08-21-2024 04:13-0400 Body weight 70.9 kg Demetrius Cooper MD Work Phone: [facility] 08-20-2024 19:00-0400 Diastolic blood pressure 54 mm[Hg] Demetrius Cooper MD Work Phone: [facility] 08-20-2024 19:00-0400 Heart rate 61 /min Demetrius Cooper MD Work Phone: [facility] 08-20-2024 19:00-0400 Respiratory rate 18 /min Demetrius Cooper MD Work Phone: [facility] 08-20-2024 19:00-0400 SaO2% (BldA) [Mass fraction] 92 % Demetrius Cooper MD Work Phone: [facility] 08-20-2024 19:00-0400 Systolic blood pressure 104 mm[Hg] Demetrius Cooper MD Work Phone: [facility] 08-20-2024 18:04-0400 Body temperature 98.1 [degF] Demetrius Cooper MD Work Phone: [facility] 08-20-2024 16:57-0400 Body height 162.56 cm Demetrius Cooper MD Work Phone: [facility] 08-20-2024 16:57-0400 Body weight 71.6 kg Demetrius Cooper MD Work Phone: [facility] 08-17-2024 08:23-0400 Body height 167.64 cm Demetrius Cooper MD Work Phone: [facility] 08-17-2024 08:23-0400 Body temperature 97.3 [degF] Demetrius Cooper MD Work Phone: [facility] 08-17-2024 08:23-0400 Body weight 72.25 kg Demetrius Cooper MD Work Phone: [facility] 08-17-2024 08:23-0400 Diastolic blood pressure 71 mm[Hg] Demetrius Cooper MD Work Phone: [facility] 08-17-2024 08:23-0400 Heart rate 90 /min Demetrius Cooper MD Work Phone: [facility] 08-17-2024 08:23-0400 Respiratory rate 18 /min Demetrius Cooper MD Work Phone: [facility] 08-17-2024 08:23-0400 SaO2% (BldA) [Mass fraction] 95 % Demetrius Cooper MD Work Phone: [facility] 08-17-2024 08:23-0400 Systolic blood pressure 151 mm[Hg] Demetrius Cooper MD Work Phone: [facility] 08-16-2024 09:18-0400 Body weight 72.4 kg Demetrius Cooper MD Work Phone: [facility] 08-10-2024 15:40-0400 Body height 167.64 cm Demetrius Cooper MD Work Phone: [facility] 08-10-2024 08:25-0400 Body temperature 97.8 [degF] Demetrius Cooper MD Work Phone: [facility] 08-10-2024 08:25-0400 Diastolic blood pressure 65 mm[Hg] Demetrius Cooper MD Work Phone: [facility] 08-10-2024 08:25-0400 Heart rate 68 /min Demetrius Cooper MD Work Phone: [facility] 08-10-2024 08:25-0400 Respiratory rate 18 /min Demetrius Cooper MD Work Phone: [facility] 08-10-2024 08:25-0400 SaO2% (BldA) [Mass fraction] 94 % Demetrius Cooper MD Work Phone: [facility] 08-10-2024 08:25-0400 Systolic blood pressure 121 mm[Hg] Demetrius Cooper MD Work Phone: [facility] 08-09-2024 09:28-0400 Body weight 73.1 kg Demetrius Cooper MD Work Phone: [facility] 08-09-2024 09:16-0400 Body weight 73.1 kg Demetrius Cooper MD Work Phone: [facility] 08-09-2024 09:16-0400 Diastolic blood pressure 69 mm[Hg] Demetrius Cooper MD Work Phone: [facility] 08-09-2024 09:16-0400 Heart rate 77 /min Demetrius Cooper MD Work Phone: [facility] 08-09-2024 09:16-0400 Respiratory rate 18 /min Demetrius Cooper MD Work Phone: [facility] 08-09-2024 09:16-0400 SaO2% (BldA) [Mass fraction] 97 % Demetrius Cooper MD Work Phone: [facility] 08-09-2024 09:16-0400 Systolic blood pressure 110 mm[Hg] Demetrius Cooper MD Work Phone: [facility] 08-03-2024 09:58-0400 Body height 167.64 cm Demetrius Cooper MD Work Phone: [facility] 08-03-2024 08:27-0400 Body temperature 97.9 [degF] Demetrius Cooper MD Work Phone: [facility] 08-03-2024 08:27-0400 Diastolic blood pressure 74 mm[Hg] Demetrius Cooper MD Work Phone: [facility] 08-03-2024 08:27-0400 Heart rate 85 /min Demetrius Cooper MD Work Phone: [facility] 08-03-2024 08:27-0400 Respiratory rate 18 /min Demetrius Cooper MD Work Phone: [facility] 08-03-2024 08:27-0400 SaO2% (BldA) [Mass fraction] 95 % Demetrius Cooper MD Work Phone: [facility] 08-03-2024 08:27-0400 Systolic blood pressure 133 mm[Hg] Demetrius Cooper MD Work Phone: [facility] 07-28-2024 16:29-0400 Body height 167.64 cm Demetrius Cooper MD Work Phone: [facility] 07-27-2024 08:28-0400 Body temperature 98.1 [degF] Demetrius Cooper MD Work Phone: [facility] 07-27-2024 08:28-0400 Body weight 74.2 kg Demetrius Cooper MD Work Phone: [facility] 07-27-2024 08:28-0400 Diastolic blood pressure 79 mm[Hg] Demetrius Cooper MD Work Phone: [facility] 07-27-2024 08:28-0400 Heart rate 62 /min Demetrius Cooper MD Work Phone: [facility] 07-27-2024 08:28-0400 Respiratory rate 18 /min Demetrius Cooper MD Work Phone: [facility] 07-27-2024 08:28-0400 SaO2% (BldA) [Mass fraction] 95 % Demetrius Cooper MD Work Phone: [facility] 07-27-2024 08:28-0400 Systolic blood pressure 126 mm[Hg] Demetrius Cooper MD Work Phone: [facility] 07-26-2024 08:23-0400 Body temperature 97.6 [degF] Demetrius Cooper MD Work Phone: [facility] 07-26-2024 08:23-0400 Body weight 73.48 kg Demetrius Cooper MD Work Phone: [facility] 07-26-2024 08:23-0400 Diastolic blood pressure 72 mm[Hg] Demetrius Cooper MD Work Phone: [facility] 07-26-2024 08:23-0400 Heart rate 64 /min Demetrius Cooper MD Work Phone: [facility] 07-26-2024 08:23-0400 Respiratory rate 20 /min Demetrius Cooper MD Work Phone: [facility] 07-26-2024 08:23-0400 SaO2% (BldA) [Mass fraction] 96 % Demetrius Cooper MD Work Phone: [facility] 07-26-2024 08:23-0400 Systolic blood pressure 120 mm[Hg] Demetrius Cooper MD Work Phone: [facility] 07-20-2024 10:18-0500 Body weight 75.38 kg Demetrius Cooper MD Work Phone: [facility] 07-20-2024 08:46-0500 Body temperature 97.8 [degF] Demetrius Cooper MD Work Phone: [facility] 07-20-2024 08:46-0500 Body weight 74.84 kg Demetrius Cooper MD Work Phone: [facility] 07-20-2024 08:46-0500 Diastolic blood pressure 70 mm[Hg] Demetrius Cooper MD Work Phone: [facility] 07-20-2024 08:46-0500 Heart rate 68 /min Demetrius Cooper MD Work Phone: [facility] 07-20-2024 08:46-0500 Respiratory rate 20 /min Demetrius Cooper MD Work Phone: [facility] 07-20-2024 08:46-0500 SaO2% (BldA) [Mass fraction] 97 % Demetrius Cooper MD Work Phone: [facility] 07-20-2024 08:46-0500 Systolic blood pressure 137 mm[Hg] Demetrius Cooper MD Work Phone: [facility] 07-18-2024 08:50-0500 Body height 167.64 cm Demetrius Cooper MD Work Phone: [facility] 07-17-2024 14:33-0500 Diastolic blood pressure 73 mm[Hg] Demetrius Cooper MD Work Phone: [facility] 07-17-2024 14:33-0500 Heart rate 59 /min Demetrius Cooper MD Work Phone: [facility] 07-17-2024 14:33-0500 Respiratory rate 16 /min Demetrius Cooper MD Work Phone: [facility] 07-17-2024 14:33-0500 SaO2% (BldA) [Mass fraction] 96 % Demetrius Cooper MD Work Phone: [facility] 07-17-2024 14:33-0500 Systolic blood pressure 158 mm[Hg] Demetrius Cooper MD Work Phone: [facility] 07-17-2024 13:48-0500 Body temperature 97.3 [degF] Demetrius Cooper MD Work Phone: [facility] 07-17-2024 10:40-0500 Body height 165.1 cm Demetrius Cooper MD Work Phone: [facility] 07-17-2024 10:40-0500 Body weight 77.11 kg Demetrius Cooper MD Work Phone: [facility] 07-13-2024 16:08-0500 Body height 167.64 cm Demetrius Cooper MD Work Phone: [facility] 07-13-2024 08:37-0500 Body temperature 97.8 [degF] Demetrius Cooper MD Work Phone: [facility] 07-13-2024 08:37-0500 Body weight 77.01 kg Demetrius Cooper MD Work Phone: [facility] 07-13-2024 08:37-0500 Diastolic blood pressure 71 mm[Hg] Demetrius Cooper MD Work Phone: [facility] 07-13-2024 08:37-0500 Heart rate 64 /min Demetrius Cooper MD Work Phone: [facility] 07-13-2024 08:37-0500 Respiratory rate 18 /min Demetrius Cooper MD Work Phone: [facility] 07-13-2024 08:37-0500 SaO2% (BldA) [Mass fraction] 95 % Demetrius Cooper MD Work Phone: [facility] 07-13-2024 08:37-0500 Systolic blood pressure 127 mm[Hg] Demetrius Cooper MD Work Phone: [facility] 07-12-2024 08:41-0500 Body temperature 97.3 [degF] Demetrius Cooper MD Work Phone: [facility] 07-12-2024 08:41-0500 Body weight 76.65 kg Demetrius Cooper MD Work Phone: [facility] 07-12-2024 08:41-0500 Diastolic blood pressure 60 mm[Hg] Demetrius Cooper MD Work Phone: [facility] 07-12-2024 08:41-0500 Heart rate 61 /min Demetrius Cooper MD Work Phone: [facility] 07-12-2024 08:41-0500 Respiratory rate 20 /min Demetrius Cooper MD Work Phone: [facility] 07-12-2024 08:41-0500 SaO2% (BldA) [Mass fraction] 96 % Demetrius Cooper MD Work Phone: [facility] 07-12-2024 08:41-0500 Systolic blood pressure 106 mm[Hg] Demetrius Cooper MD Work Phone: [facility] 07-06-2024 11:06-0500 Body height 167.64 cm Demetrius Cooper MD Work Phone: [facility] 07-06-2024 08:36-0500 Body temperature 97.6 [degF] Demetrius Cooper MD Work Phone: [facility] 07-06-2024 08:36-0500 Body weight 77.83 kg Demetrius Cooper MD Work Phone: [facility] 07-06-2024 08:36-0500 Diastolic blood pressure 71 mm[Hg] Demetrius Cooper MD Work Phone: [facility] 07-06-2024 08:36-0500 Heart rate 63 /min Demetrius Cooper MD Work Phone: [facility] 07-06-2024 08:36-0500 Respiratory rate 18 /min Demetrius Cooper MD Work Phone: [facility] 07-06-2024 08:36-0500 SaO2% (BldA) [Mass fraction] 95 % Demetrius Cooper MD Work Phone: [facility] 07-06-2024 08:36-0500 Systolic blood pressure 122 mm[Hg] Demetrius Cooper MD Work Phone: [facility] 06-22-2024 14:58-0500 Body height 162.56 cm Demetrius Cooper MD Work Phone: [facility] 06-22-2024 14:58-0500 Body temperature 97.5 [degF] Demetrius Cooper MD Work Phone: [facility] 06-22-2024 14:58-0500 Body weight 78 kg Demetrius Cooper MD Work Phone: [facility] 06-22-2024 14:58-0500 Diastolic blood pressure 72 mm[Hg] Demetrius Cooper MD Work Phone: [facility] 06-22-2024 14:58-0500 Heart rate 50 /min Demetrius Cooper MD Work Phone: [facility] 06-22-2024 14:58-0500 Respiratory rate 20 /min Demetrius Cooper MD Work Phone: [facility] 06-22-2024 14:58-0500 SaO2% (BldA) [Mass fraction] 95 % Demetrius Cooper MD Work Phone: [facility] 06-22-2024 14:58-0500 Systolic blood pressure 149 mm[Hg] Demetrius Cooper MD Work Phone: [facility] 06-20-2024 14:38-0500 Body height 160 cm Matteo Bell MD Work Phone: [facility] 06-20-2024 14:38-0500 Body mass index (BMI) [Ratio] 30.11 kg/m2 Matteo Bell MD Work Phone: [facility] 06-20-2024 14:38-0500 Body weight 77.11 kg Matteo Bell MD Work Phone: [facility] 06-20-2024 14:38-0500 Diastolic blood pressure 74 mm[Hg] Matteo Bell MD Work Phone: [facility] 06-20-2024 14:38-0500 Systolic blood pressure 120 mm[Hg] Matteo Bell MD Work Phone: [facility] 06-14-2024 10:45-0500 Body height 167.64 cm Demetrius Cooper MD Work Phone: [facility] 06-14-2024 10:45-0500 Body mass index (BMI) [Ratio] 27.6 kg/m2 Demetrius Cooper MD Work Phone: [facility] 06-14-2024 10:45-0500 Body temperature 97.6 [degF] Demetrius Cooper MD Work Phone: [facility] 06-14-2024 10:45-0500 Body weight 77.56 kg Demetrius Cooper MD Work Phone: [facility] 06-14-2024 10:45-0500 Diastolic blood pressure 67 mm[Hg] Demetrius Cooper MD Work Phone: [facility] 06-14-2024 10:45-0500 Heart rate 69 /min Demetrius Cooper MD Work Phone: [facility] 06-14-2024 10:45-0500 Respiratory rate 20 /min Demetrius Cooper MD Work Phone: [facility] 06-14-2024 10:45-0500 Systolic blood pressure 103 mm[Hg] Demetrius Cooper MD Work Phone: [facility] 06-14-2024 09:53-0500 Body height 167.64 cm Demetrius Cooper MD Work Phone: [facility] 06-14-2024 09:53-0500 Body mass index (BMI) [Ratio] 27.6 kg/m2 Demetrius Cooper MD Work Phone: [facility] 06-14-2024 09:53-0500 Body temperature 97.6 [degF] Demetrius Cooper MD Work Phone: [facility] 06-14-2024 09:53-0500 Body weight 77.56 kg Demetrius Cooper MD Work Phone: [facility] 06-14-2024 09:53-0500 Diastolic blood pressure 67 mm[Hg] Demetrius Cooper MD Work Phone: [facility] 06-14-2024 09:53-0500 Heart rate 69 /min Demetrius Cooper MD Work Phone: [facility] 06-14-2024 09:53-0500 Respiratory rate 20 /min Demetrius Cooper MD Work Phone: [facility] 06-14-2024 09:53-0500 SaO2% (BldA) [Mass fraction] 96 % Demetrius Cooper MD Work Phone: [facility] 06-14-2024 09:53-0500 Systolic blood pressure 103 mm[Hg] Demetrius Cooper MD Work Phone: [facility] 06-05-2024 14:13-0500 Diastolic blood pressure 96 mm[Hg] [address] 06-05-2024 14:13-0500 Heart rate 65 /min [address] 06-05-2024 14:13-0500 Respiratory rate 16 /min [address] 06-05-2024 14:13-0500 SaO2% (BldA) [Mass fraction] 96 % [address] 06-05-2024 14:13-0500 Systolic blood pressure 147 mm[Hg] [address] 06-05-2024 12:22-0500 Body temperature 97.2 [degF] [address] 05-30-2024 11:16-0500 Body height 162.6 cm Mary Schneider MD Work Phone: [facility] 05-30-2024 11:16-0500 Body mass index (BMI) [Ratio] 28.89 kg/m2 Mary Schneider MD Work Phone: [facility] 05-30-2024 11:16-0500 Body temperature 98.2 [degF] Mary Schneider MD Work Phone: [facility] 05-30-2024 11:16-0500 Body weight 76.34 kg Mary Schneider MD Work Phone: [facility] 05-11-2024 10:00-0500 Body temperature 97.7 [degF] Mary Schneider MD Work Phone: [facility] 05-11-2024 10:00-0500 Diastolic blood pressure 72 mm[Hg] Mary Schneider MD Work Phone: [facility] 05-11-2024 10:00-0500 Heart rate 61 /min Mary Schneider MD Work Phone: [facility] 05-11-2024 10:00-0500 Respiratory rate 14 /min Mary Schneider MD Work Phone: [facility] 05-11-2024 10:00-0500 SaO2% (BldA) [Mass fraction] 95 % Mary Schneider MD Work Phone: [facility] 05-11-2024 10:00-0500 Systolic blood pressure 140 mm[Hg] Mary Schneider MD Work Phone: [facility] 05-11-2024 06:08-0500 Body height 162.6 cm Mary Schnedier MD Work Phone: [facility] 05-11-2024 06:08-0500 Body mass index (BMI) [Ratio] 29.52 kg/m2 Mary Schneider MD Work Phone: [facility] 05-11-2024 06:08-0500 Body weight 78 kg Mary Schneider MD Work Phone: [facility] 04-07-2024 10:40-0500 Body height 162.6 cm Mary Schneider MD Work Phone: [facility] 04-07-2024 10:40-0500 Body mass index (BMI) [Ratio] 29.18 kg/m2 Mary Schneider MD Work Phone: [facility] 04-07-2024 10:40-0500 Body weight 77.11 kg Mary Schneider MD Work Phone: [facility] 03-29-2024 10:06-0500 Body height 162.6 cm Luc Ham MD Work Phone: [facility] 03-29-2024 10:06-0500 Body mass index (BMI) [Ratio] 29.7 kg/m2 Luc Ham MD Work Phone: [facility] 03-29-2024 10:06-0500 Body weight 78.47 kg Luc Ham MD Work Phone: [facility] 03-29-2024 10:06-0500 Diastolic blood pressure 70 mm[Hg] Luc Ham MD Work Phone: [facility] 03-29-2024 10:06-0500 Systolic blood pressure 138 mm[Hg] Luc Ham MD Work Phone: [facility] 03-23-2024 14:06-0500 Blood Pressure Location Wiley Sarmini [facility] 03-23-2024 14:06-0500 Diastolic blood pressure 74 mm[Hg] Wiley Sarmini [facility] 03-23-2024 14:06-0500 Heart rate 71 /min Wiley Sarmini [facility] 03-23-2024 14:06-0500 Respiratory rate 16 /min Wiley Sarmini [facility] 03-23-2024 14:06-0500 Systolic blood pressure 117 mm[Hg] Wiley Sarmini [facility] 03-08-2024 09:25-0400 Body height 162.6 cm Luc Ham MD Work Phone: [facility] 03-08-2024 09:25-0400 Body mass index (BMI) [Ratio] 29.87 kg/m2 Luc Ham MD Work Phone: [facility] 03-08-2024 09:25-0400 Body weight 78.93 kg Luc Ham MD Work Phone: [facility] 03-08-2024 09:25-0400 Diastolic blood pressure 66 mm[Hg] Luc Ham MD Work Phone: [facility] 03-08-2024 09:25-0400 Systolic blood pressure 124 mm[Hg] Luc Ham MD Work Phone: [facility] 02-16-2024 14:19-0400 Body height 162.6 cm Luc Ham MD Work Phone: [facility] 02-16-2024 14:19-0400 Body mass index (BMI) [Ratio] 29.87 kg/m2 Luc Ham MD Work Phone: [facility] 02-16-2024 14:19-0400 Body weight 78.93 kg Luc Ham MD Work Phone: [facility] 02-16-2024 14:19-0400 Diastolic blood pressure 74 mm[Hg] Luc Ham MD Work Phone: [facility] 02-16-2024 14:19-0400 Systolic blood pressure 129 mm[Hg] Luc Ham MD Work Phone: [facility] 02-16-2024 08:59-0400 Body height 162.6 cm Missy Lowe PA Work Phone: [facility] 02-16-2024 08:59-0400 Body mass index (BMI) [Ratio] 29.7 kg/m2 Missy Lowe PA Work Phone: [facility] 02-16-2024 08:59-0400 Body weight 78.47 kg Missy Lowe PA Work Phone: [facility] 02-16-2024 08:59-0400 Diastolic blood pressure 78 mm[Hg] Missy Lowe PA Work Phone: [facility] 02-16-2024 08:59-0400 Systolic blood pressure 118 mm[Hg] Missy Lowe PA Work Phone: [facility] 02-01-2024 13:07-0400 Body height 162.6 cm Luc Ham MD Work Phone: [facility] 02-01-2024 13:07-0400 Body mass index (BMI) [Ratio] 29.52 kg/m2 Luc Ham MD Work Phone: [facility] 02-01-2024 13:07-0400 Body weight 78.02 kg Luc Ham MD Work Phone: [facility] 02-01-2024 13:07-0400 Diastolic blood pressure 71 mm[Hg] Luc Ham MD Work Phone: [facility] 02-01-2024 13:07-0400 Systolic blood pressure 101 mm[Hg] Luc Ham MD Work Phone: [facility] 10-21-2023 14:32-0400 Blood Pressure Location Wiley Sarmini [facility] 10-21-2023 14:32-0400 Diastolic blood pressure 64 mm[Hg] Wiley Sarmini [facility] 10-21-2023 14:32-0400 Heart rate 73 /min Wiley Sarmini [facility] 10-21-2023 14:32-0400 Respiratory rate 18 /min Wiley Sarmini [facility] 10-21-2023 14:32-0400 Systolic blood pressure 130 mm[Hg] Wiley Sarmini [facility] 09-17-2023 08:58-0400 Blood Pressure Location Anjali Flori [facility] 09-17-2023 08:58-0400 Body temperature 97.34 [degF] Anjali Flori [facility] 09-17-2023 08:58-0400 Diastolic blood pressure 66 mm[Hg] Anjali Flori [facility] 09-17-2023 08:58-0400 Heart rate 66 /min Anjali Flori [facility] 09-17-2023 08:58-0400 Systolic blood pressure 123 mm[Hg] Anjali Flori [facility] 09-02-2023 13:28-0400 Body height 167.64 cm [facility] 09-02-2023 13:28-0400 Body mass index (BMI) [Ratio] 28 kg/m2 [facility] 09-02-2023 13:28-0400 Body weight 78.69 kg [facility] 09-02-2023 13:28-0400 Diastolic blood pressure 61 mm[Hg] [facility] 09-02-2023 13:28-0400 Heart rate 67 /min [facility] 09-02-2023 13:28-0400 SaO2% (BldA) [Mass fraction] 95 % [facility] 09-02-2023 13:28-0400 Systolic blood pressure 113 mm[Hg] [facility] 07-27-2023 10:23-0400 Body height 167.64 cm [facility] 07-27-2023 10:23-0400 Body mass index (BMI) [Ratio] 27.5 kg/m2 [facility] 07-27-2023 10:23-0400 Body temperature 97.9 [degF] [facility] 07-27-2023 10:23-0400 Body weight 77.28 kg [facility] 07-27-2023 10:23-0400 Diastolic blood pressure 66 mm[Hg] [facility] 07-27-2023 10:23-0400 Heart rate 86 /min [facility] 07-27-2023 10:23-0400 Respiratory rate 18 /min [facility] 07-27-2023 10:23-0400 SaO2% (BldA) [Mass fraction] 97 % [facility] 07-27-2023 10:23-0400 Systolic blood pressure 121 mm[Hg] [facility] 05-31-2023 13:30-0500 Body height 167.64 cm [employer] [facility] Other 05-31-2023 13:30-0500 Body mass index (BMI) [Ratio] 27.6 kg/m2 [employer] [facility] Other 05-31-2023 13:30-0500 Body weight 77.57 kg Gisele Brunson Other [facility] Other 05-31-2023 13:30-0500 Diastolic blood pressure 55 mm[Hg] Gisele Brunson Other [facility] Other 05-31-2023 13:30-0500 SaO2% (BldA) [Mass fraction] 94 % Gisele Brunson Other [facility] Other 05-31-2023 13:30-0500 Systolic blood pressure 104 mm[Hg] Gisele Brunson Other [facility] Other 05-25-2023 12:21-0500 Blood Pressure Location Anjali Flori [facility] 05-25-2023 12:21-0500 Diastolic blood pressure 65 mm[Hg] Anjali Ruby [facility] 05-25-2023 12:21-0500 Heart rate 88 /min Anjali Flori [facility] 05-25-2023 12:21-0500 Respiratory rate 16 /min Anjali Staffordmetz [facility] 05-25-2023 12:21-0500 Systolic blood pressure 113 mm[Hg] Anjali Staffordmetz [facility] 04-01-2023 13:15-0500 Body temperature 97.11 [degF] Vaishali Pringle MD Work Phone: [facility] 04-01-2023 13:15-0500 Body weight 75.75 kg Vaishali Pringle MD Work Phone: [facility] 04-01-2023 13:15-0500 Diastolic blood pressure 66 mm[Hg] Vaishali Pringle MD Work Phone: [facility] 04-01-2023 13:15-0500 Heart rate 70 /min Vaishali Pringle MD Work Phone: [facility] 04-01-2023 13:15-0500 SaO2% (BldA) [Mass fraction] 97 % Vaishali Pringle MD Work Phone: [facility] 04-01-2023 13:15-0500 Systolic blood pressure 109 mm[Hg] Vaishali Pringle MD Work Phone: [facility] 03-10-2023 08:53-0400 Blood Pressure Location Anjali Flori [facility] 03-10-2023 08:53-0400 Body temperature 97.16 [degF] Anjali Flori [facility] 03-10-2023 08:53-0400 Diastolic blood pressure 72 mm[Hg] Anjali Flori [facility] 03-10-2023 08:53-0400 Heart rate 63 /min Anjali Flori [facility] 03-10-2023 08:53-0400 Systolic blood pressure 117 mm[Hg] Anjali Flori [facility] 02-25-2023 13:27-0400 Blood Pressure Location Anjali Flori [facility] 02-25-2023 13:27-0400 Body temperature 98.06 [degF] Anjali Flori [facility] 02-25-2023 13:27-0400 Diastolic blood pressure 75 mm[Hg] Anjali Flori [facility] 02-25-2023 13:27-0400 Heart rate 85 /min Anjali Flori [facility] 02-25-2023 13:27-0400 Respiratory rate 16 /min Anjali Staffordmetz [facility] 02-25-2023 13:27-0400 Systolic blood pressure 122 mm[Hg] Anjali Ruby [facility] 01-29-2023 10:15-0400 Body height 167.64 cm Gise[facility] Brun[facility] Other [facility] Other 01-29-2023 10:15-0400 Body mass index (BMI) [Ratio] 28.24 kg/m2 Gisele Brunson Other [facility] Other 01-29-2023 10:15-0400 Body weight 79.38 kg Gisele Brunson Other [facility] Other 01-29-2023 10:15-0400 Diastolic blood pressure 75 mm[Hg] Gisele Brunson Other [facility] Other 01-29-2023 10:15-0400 SaO2% (BldA) [Mass fraction] 95 % Gisele Brunson Other [facility] 01-29-2023 10:15-0400 Systolic blood pressure 118 mm[Hg] Gisele Brunson Other [facility] Other 01-12-2023 09:22-0400 Blood Pressure Location Anjali Staffordmetz [facility] 01-12-2023 09:22-0400 Body temperature 96.98 [degF] Anjali Flori [facility] 01-12-2023 09:22-0400 Diastolic blood pressure 68 mm[Hg] Anjali Ruby [facility] 01-12-2023 09:22-0400 Heart rate 69 /min Anjali Ruby [facility] 01-12-2023 09:22-0400 Systolic blood pressure 109 mm[Hg] Anjali Ruby [facility] 10-13-2022 09:45-0400 Body height 167.64 cm Gisele Brunson Other [facility] Other 10-13-2022 09:45-0400 Body mass index (BMI) [Ratio] 27.92 kg/m2 Gisele Brunson Other [facility] Other 10-13-2022 09:45-0400 Body weight 78.47 kg Gisele Brunson Other [facility] Other 10-13-2022 09:45-0400 Diastolic blood pressure 70 mm[Hg] Gisele Brunson Other [facility] Other 10-13-2022 09:45-0400 SaO2% (BldA) [Mass fraction] 95 % Gisele Brunson Other [facility] Other 10-13-2022 09:45-0400 Systolic blood pressure 116 mm[Hg] Gisele Brunson Other [facility] Other 09-22-2022 18:14-0400 Body temperature 99.86 [degF] Gordy S[facility]chez [facility] 09-22-2022 16:28-0400 Body temperature 101.3 [degF] Gordy S[facility]chez [facility] 09-22-2022 16:28-0400 Diastolic blood pressure 61 mm[Hg] Gordy S[facility]chez [facility] 09-22-2022 16:28-0400 Heart rate 79 /min Gordy Sánchez [facility] 09-22-2022 16:28-0400 Respiratory rate 17 /min Gordy S[facility]chez [facility] 09-22-2022 16:28-0400 SaO2% (BldA) [Mass fraction] 93 % Gordy S[facility]chez [facility] 09-22-2022 16:28-0400 Systolic blood pressure 111 mm[Hg] Gordy S[facility]chez [facility] 09-22-2022 14:10-0400 Body height 167.64 cm Griselda Pennington Other [facility] Other 09-22-2022 14:10-0400 Body mass index (BMI) [Ratio] 29.7 kg/m2 Griselda Murphymond Other [facility] Other 09-22-2022 14:10-0400 Body temperature 100 [degF] Griselda Pennington Other [facility] Other 09-22-2022 14:10-0400 Body weight 83.46 kg Griselda Murphymond Other [facility] Other 09-22-2022 14:10-0400 Respiratory rate 18 /min Griselda Murphymond Other [facility] Other 09-22-2022 14:10-0400 SaO2% (BldA) [Mass fraction] 93 % Griselda Aditi Other [facility] Other 07-29-2022 10:15-0400 Body height 167.64 cm Erwin Salazar Other [facility] Other 07-29-2022 10:15-0400 Body mass index (BMI) [Ratio] 30.02 kg/m2 Erwin Salazar Other [facility] Other 07-29-2022 10:15-0400 Body weight 84.37 kg Erwin Salazar Other [facility] Other 07-29-2022 10:15-0400 Diastolic blood pressure 65 mm[Hg] Erwin Salazar Other [facility] Other 07-29-2022 10:15-0400 SaO2% (BldA) [Mass fraction] 94 % Erwin Salazar Other [facility] Other 07-29-2022 10:15-0400 Systolic blood pressure 102 mm[Hg] Erwin Salazar Other [facility] Other 11-29-2021 10:25-0400 Body height 167.64 cm Leti Garcia Other [facility] Other 11-29-2021 10:25-0400 Body temperature 96.9 [degF] Leti Garcia Other [facility] Other 11-29-2021 10:25-0400 Respiratory rate 18 /min Leti Garcia Other [facility] Other 11-29-2021 10:25-0400 SaO2% (BldA) [Mass fraction] 93 % Leti Garcia Other [facility] Other Encounters Encounter Date Encounter Type Care Provider Facility Start: 01-18-2025 End: 01-18-2025 Office outpatient visit 15 minutes Veena H Itzkowitz DO Work Phone: [facility] Comment on above: Esophageal dysphagia (Primary Dx) Start: 01-18-2025 End: 01-18-2025 ambulatory VEENA H ITZKOWITZ Not Available Start: 01-08-2025 End: 01-08-2025 Office outpatient visit 15 minutes Veena H Itzkowitz DO Work Phone: [facility] Comment on above: Esophageal dysphagia (Primary Dx); Carcinoma of oropharynx (HCC) Start: 01-08-2025 End: 01-08-2025 ambulatory VEENA H ITZKOWITZ Not Available Start: 12-26-2024 Registered Recurring Talib Faustin MD -[facility] Work Phone: Start: 12-26-2024 End: 12-26-2024 ambulatory Demetrius Cooper MD Work Phone: [facility] Work Phone: Start: 12-26-2024 End: 12-26-2024 Patient encounter procedure Becky Crouch RAYSHAWN -[facility] Work Phone: Start: 12-13-2024 ambulatory STACEY [facility] Start: 12-11-2024 End: 12-11-2024 Office outpatient visit 15 minutes Mary Schneider MD Work Phone: [facility] Comment on above: 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); G tube feedings (Multi); At risk for malnutrition Start: 12-11-2024 End: 12-11-2024 ambulatory MARY SCHNEIDER [facility] Start: 12-05-2024 End: 12-05-2024 ambulatory STACEY [facility] Start: 11-27-2024 End: 11-27-2024 ambulatory Demetrius Cooper Facility:[facility] ([facility] Start: 11-23-2024 Registered Recurring Talib Faustin MD -[facility] Acute Work Phone: Start: 11-23-2024 End: 11-23-2024 ambulatory Demetrius Cooper MD Work Phone: [facility] Work Phone: Start: 11-23-2024 End: 11-23-2024 Patient encounter procedure Talib Faustin MD -[facility] Ambulatory Work Phone: Start: 11-23-2024 End: 11-23-2024 Patient encounter procedure Debora Campbell [facility] Start: 11-23-2024 End: 11-23-2024 ambulatory Demetrius Cooper MD Work Phone: [facility] Work Phone: Start: 11-23-2024 Non-patient / Non-visit Robina Campbell [facility] Work Phone: Start: 11-21-2024 End: 11-21-2024 ambulatory Demetrius Cooper Facility: [facility] Start: 2024 End: 2024 ambulatory MD Demetrius Cooper Facility: [facility] Start: 10-12-2024 End: 10-12-2024 ambulatory MD Demetrius Cooper Facility:[facility] [place] Start: 10-11-2024 End: 10-11-2024 Postop follow up [...] center Veena Adkins DO -[facility] [place] Start: 10-03-2024 End: 10-03-2024 ambulatory Demetrius Cooper Facility:[facility] Start: 09-28-2024 End: 09-28-2024 ambulatory MD Demetrius Cooper Facility:[facility] [place] Start: 09-28-2024 End: 09-28-2024 Bamboo flowsheet [...] 09-26-2024 ambulatory Demetrius Cooper MD Work Phone: [facility] Work Phone: Start: 09-26-2024 End: 09-26-2024 Patient encounter procedure Demetrius Cooper MD Work Phone: [facility] Palliative Work Phone: Start: 09-25-2024 Registered Recurring Demetrius gardiner MD [facility]: [facility] [place] [facility] Work Phone: Start: 09-20-2024 End: 09-20-2024 Emergency department patient visit Demetrius Cooper MD Work Phone: [facility]-Emergency Room Work Phone: Start: 09-14-2024 End: 09-14-2024 ambulatory MD Demetrius Cooper Facility:[facility] Start: 09-11-2024 End: 09-11-2024 Office outpatient visit 15 minutes Mary Schneider MD Work Phone: [facility] Comment on above: 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); Dysphagia, unspecified type Start: 09-11-2024 End: 09-11-2024 ambulatory MARY SCHNEIDER [facility] Start: 09-11-2024 End: 09-11-2024 Patient encounter procedure Demetrius Cooper MD Work Phone: [facility] Sleep Lab Work Phone: Start: 09-07-2024 Registered Recurring Demetrius gardiner MD Work Phone: [facility] [place] [facility] Work Phone: Start: 09-07-2024 End: 09-07-2024 Patient encounter procedure Demetrius Cooper MD Work Phone: [facility] Ambulatory Work Phone: Start: 09-04-2024 End: 09-04-2024 [facility] Start: 08-30-2024 End: 08-30-2024 Lab Drop off Demetrius [facility] Start: 08-30-2024 End: 08-30-2024 ambulatory Demetrius Cooper [facility] Start: 08-24-2024 End: 08-24-2024 ambulatory Demetrius Cooper Facility:[facility] Start: 08-23-2024 End: 08-23-2024 Patient encounter procedure Demetrius Cooper MD Work Phone: [facility] Ambulatory Work Phone: Start: 08-22-2024 End: 09-25-2024 ambulatory Demetrius Cooper Facility:CD:[id number] Start: 08-21-2024 Non-patient / Non-visit Demetrius Cooper MD Work Phone: [facility] Ambulatory Work Phone: Start: 08-21-2024 Non-patient / Non-visit Demetrius Cooper MD Work Phone: [facility] Infect Dis Work Phone: Start: 08-21-2024 ambulatory Demetrius Cooper Facility: [facility] Start: 08-20-2024 End: 08-21-2024 Evaluation and management of inpatient Demetrius Cooper MD Work Phone: [facility] [place] [facility] Work Phone: Start: 08-18-2024 Registered Recurring Demetrius gardiner MD Work [facility]: [facility] [place] [facility] Work Phone: Start: 08-17-2024 Non-patient / Non-visit Demetrius Cooper MD Work Phone: [facility] Ambulatory Work Phone: Start: 08-17-2024 ambulatory Dennis Gray Faci lity:[facility] Start: 08-17-2024 Registered Recurring Demetrius gardiner MD Work Phone: [facility] Start: 08-16-2024 Non-patient / Non-visit Demetrius Cooper MD Work Phone: [facility] Palliative Work Phone: Start: 08-16-2024 Registered Recurring Demetrius gardiner MD Work [facility]: [facility] [place] [facility] Work Phone: Start: 08-16-2024 End: 08-16-2024 Patient encounter procedure Demetrius Cooper MD Work Phone: [facility] Start: 08-16-2024 End: 08-16-2024 ambulatory Demetrius Cooper MD Work Phone: [facility] Work Phone: Start: 08-14-2024 Non-patient / Non-visit Demetrius Cooper MD Work Phone: [facility] Start: 08-10-2024 Non-patient / Non-visit Demetrius Cooper MD Work Phone: [facility] Amb[facility] Work Phone: Start: 08-10-2024 Registered Recurring Demetrius gardiner MD [facility]: [facility] Start: 08-09-2024 End: 08-09-2024 Patient encounter procedure Demetrius Cooper MD Work Phone: [facility] Amb[facility] Work Phone: Start: 08-09-2024 Non-patient / Non-visit Demetrius Cooper MD Work Phone: [facility] Palliative Work Phone: Start: 08-09-2024 End: 08-09-2024 Patient encounter procedure Demetrius Cooper MD Work Phone: [facility] Start: 08-09-2024 End: 08-09-2024 ambulatory Demetrius Cooper MD Work Phone: [facility] Work Phone: Start: 08-07-2024 Non-patient / Non-visit Demetrius Cooper MD Work Phone: [facility] Work Phone: Start: 08-03-2024 Registered Recurring Demetrius gardiner MD [facility]: [facility] Start: 08-03-2024 Non-patient / Non-visit Demetrius Cooper MD Work Phone: [facility] Amb[facility] Work Phone: Start: 08-02-2024 Non-patient / Non-visit [facility]etrius Cooper [facility] Start: 08-02-2024 End: 08-02-2024 Patient encounter procedure Demetrius Cooper MD Work Phone: [facility] Start: 08-02-2024 End: 08-02-2024 ambulatory Demetrius Cooper MD Work Phone: [facility] Work Phone: Start: 07-31-2024 Non-patient / Non-visit Demetrius Cooper MD Work Phone: [facility] Work Phone: Start: 07-27-2024 Registered Recurring Demetrius gardiner MD [facility] Start: 07-27-2024 Non-patient / Non-visit Demetrius Cooper MD Work Phone: [facility] Work Phone: Start: 07-26-2024 End: 07-26-2024 ambulatory MATTEO MELO V Not Available Start: 07-26-2024 Registered Recurring Demetrius gardiner MD Work Phone: [facility] Acute Work Phone: Start: 07-26-2024 Non-patient / Non-visit Demetrius Cooper MD Work Phone: [facility] Palliative Work Phone: Start: 07-26-2024 End: 07-26-2024 Departed Referred Demetrius Cooper MD Work Phone: [facility] Start: 07-26-2024 End: 07-26-2024 ambulatory Demetrius Cooper MD Work Phone: [facility] Work Phone: Start: 07-26-2024 End: 07-26-2024 Patient encounter procedure [facility]etrius Cooper MD [facility] Work Phone: Start: 07-26-2024 Non-patient / Non-visit Demetrius Cooper MD Work Phone: [facility] Start: 07-24-2024 Non-patient / Non-visit Demetrius Cooper MD Work Phone: [facility] Work Phone: Start: 07-21-2024 ambulatory Mary Schneider Facilit y:[facility] Start: 07-20-2024 Registered Recurring Demetrius gardiner MD Work Phone: [facility] Start: 07-20-2024 Non-patient / Non-visit Demetrius Cooper MD Work Phone: [facility] Work Phone: Start: 07-20-2024 End: 07-20-2024 Patient encounter procedure Demetrius Cooper MD Work Phone: [facility] Work Phone: Start: 07-19-2024 End: 07-19-2024 ambulatory BOY [facility] Start: 07-19-2024 Non-patient / Non-visit Demetrius Cooper MD Work Phone: [facility] Start: 07-19-2024 End: 07-19-2024 Departed Referred Demetrius Cooper MD Work Phone: [facility] Start: 07-19-2024 End: 07-19-2024 Patient encounter procedure Demetrius Cooper MD Work Phone: [facility] Start: 07-19-2024 End: 07-19-2024 ambulatory Debora Tangw Facility:[facility] Start: 07-17-2024 End: 07-17-2024 External Result Encounter Matteo Melo MD Work Phone: [facility] External Department Unsolicited Start: 07-17-2024 End: 07-17-2024 External Result Encounter Matteo Bell MD Work Phone: [facility] External Department Unsolicited Start: 07-17-2024 Registered Recurring Demetrius gardiner MD [facility]: [facility] [place] [facility] Work Phone: Start: 07-17-2024 End: 07-17-2024 Admission to same day surgery center Demetrius Cooper MD [facility]: [facility] [place] Start: 07-17-2024 End: 07-17-2024 ambulatory Demetrius Cooper MD Work Phone: [facility] Work Phone: Start: 07-17-2024 Non-patient / Non-visit Demetrius Cooper MD Work Phone: [facility] Work Phone: Start: 07-13-2024 Non-patient / Non-visit Demetrius Cooper MD Work Phone: [facility] Work Phone: Start: 07-12-2024 Non-patient / Non-visit Demetrius Cooper MD Work Phone: [facility] Start: 07-12-2024 Registered Recurring Demetrius gardiner MD [facility]: [facility] Work Phone: Start: 07-12-2024 Non-patient / Non-visit Demetrius Cooper MD Work Phone: [facility] Palliative Work Phone: Start: 07-12-2024 End: 07-12-2024 Patient encounter procedure Demetrius Cooper MD Work Phone: [facility] Work Phone: Start: 07-12-2024 End: 07-12-2024 ambulatory Demetrius Cooper MD Work Phone: [facility] Work Phone: Start: 07-10-2024 Non-patient / Non-visit Demetrius Cooper MD Work Phone: [facility] Work Phone: Start: 07-10-2024 End: 07-10-2024 ambulatory [facility] Start: 07-06-2024 Non-patient / Non-visit Demetrius Cooper MD Work Phone: [facility] Work Phone: Start: 07-06-2024 Non-patient / Non-visit Demetrius Cooper MD Work Phone: [facility] Start: 07-06-2024 Non-patient / Non-visit Demetrius Cooper MD Work Phone: [facility] Palliative Work Phone: Start: 07-06-2024 End: 07-06-2024 Departed Referred Demetrius Cooper MD Work Phone: [facility] Start: 07-06-2024 End: 07-06-2024 Patient encounter procedure Demetrius Cooper MD Work Phone: [facility] Start: 07-06-2024 End: 07-06-2024 ambulatory Demetrius Cooper MD Work Phone: [facility] Work Phone: Start: 07-05-2024 Non-patient / Non-visit Demetrius Cooper MD [facility]: [facility] Work Phone: Start: 07-04-2024 End: 07-04-2024 ambulatory Demetrius Cooper Facility:[facility] Start: 07-03-2024 End: 07-03-2024 Lab Drop off d [facility] Start: 07-03-2024 End: 07-03-2024 Departed Referred Demetrius Cooper MD Work Phone: [facility] [place] Start: 07-03-2024 End: 07-03-2024 Lab Drop off Demetrius Cooper [facility] Start: 07-03-2024 End: 07-03-2024 ambulatory Demetrius Cooper [facility] Start: 06-23-2024 End: 06-23-2024 Patient encounter procedure Isabel Romano AUD Work Phone: [facility] Comment on above: Sensorineural hearin g loss, bilateral (Primary Dx); Tinnitus, bilateral Start: 06-23-2024 End: 06-23-2024 ambulatory ISABEL ROMANO Not Available Start: 06-23-2024 End: 06-23-2024 Bamboo flowsheet Isabel Romnao AUD Work Phone: [facility] Start: 06-23-2024 End: 06-23-2024 Bamboo flowsheet Isabel Romano AUD Work Phone: [facility] Start: 06-22-2024 End: 06-22-2024 Patient encounter procedure Demetrius Cooper MD Work Phone: [facility]-Pre-Surgical Testing Work Phone: Start: 06-22-2024 End: 06-22-2024 ambulatory Demetrius Cooper MD Work Phone: [facility] Work Phone: Start: 06-22-2024 Encounter for preprocedural laboratory examination Matteo Melo [facility] Start: 06-22-2024 End: 06-22-2024 External [...] / Non-visit Demetrius Cooper MD Work Phone: [facility] Work Phone: Start: 06-20-2024 Registered Recurring Demetrius gardiner MD Work Phone: [facility] Acute Work Phone: Start: 06-14-2024 End: 06-14-2024 ambulatory Demetrius Cooper MD Work Phone: [facility] Work Phone: Start: 06-14-2024 End: 06-14-2024 Patient encounter procedure Demetrius Cooper MD Work Phone: [facility] Work Phone: Start: 06-14-2024 Registered Recurring Demetrius gardiner MD Work Phone: [facility] Acute Work Phone: Start: 06-14-2024 End: 06-14-2024 ambulatory Demetrius Cooper MD Work Phone: [facility] Work Phone: Start: 06-14-2024 End: 06-14-2024 Patient encounter procedure Demetrius Cooper MD Work Phone: [facility] Physician [facility] Ambulatory Work Phone: Start: 06-06-2024 End: 06-06-2024 ambulatory [facility] Start: 06-05-2024 End: 06-05-2024 Subsequent hospital visit by physician [facility] Ul[facility]ound 3 [facility] Comment on above: Enlarged submental l ymph node Start: 06-05-2024 End: 06-05-2024 ambulatory MARY Tripp SCHNEIDER [facility] Start: 05-30-2024 End: 05-30-2024 Postop follow up visit related to original px Mary Schneider MD Work Phone: [facility] Comment on above: 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); Metastasis to cervical lymph node Start: 05-30-2024 End: 05-30-2024 ambulatory MARY Tripp SCHNEIDER [facility] Start: 05-15-2024 End: 05-15-2024 Subsequent hospital visit by physician Rad External Film EF RAD EXTERNAL [employer]M [facility]UAL Comment on above: Arrived Start: 05-15-2024 End: 05-15-2024 ambulatory MARY Tripp [facility] Start: 05-11-2024 End: 05-11-2024 Subsequent hospital visit by physician Mary Schneider MD Work Phone: [facility] Johnny NORMAN Comment on above: 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); Acute postoperative pain Start: 04-26-2024 Evaluation and management of inpatient MARY SCHNEIDER [facility] Start: 04-25-2024 End: 04-25-2024 ambulatory STACEY JORGE [facility] Start: 04-18-2024 ambulatory MARY SCHNEIDER [facility] Start: 04-17-2024 End: 04-17-2024 Lab Drop off Demetrius Cooper [facility] Start: 04-17-2024 End: 04-17-2024 ambulatory Demetrius Cooper [facility] Start: 04-11-2024 End: 04-11-2024 ambulatory MARY Tripp [facility] Start: 04-11-2024 End: 04-11-2024 Encounter for other preprocedural examination MARY Tripp [facility] Start: 04-11-2024 End: 04-11-2024 Encounter for preprocedural cardiovascular examination MARY [facility] Start: 04-11-2024 End: 04-11-2024 Encounter for preprocedural respiratory examination MARY N [facility] Start: 04-07-2024 End: 04-07-2024 Office outpatient new 45 minutes Mary Schneider MD Work Phone: [facility] Comment on above: 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); Oral lesion; Malignant neoplasm of floor of mouth Start: 04-07-2024 End: 04-07-2024 ambulatory MARY Tripp [facility] Start: 03-29-2024 End: 03-29-2024 Bamboo flowsheet Luc [...] Start: 03-27-2024 End: 03-27-2024 ambulatory LUC HAM Facility:[facility] Start: 03-27-2024 End: 03-27-2024 Subsequent hospital visit by physician Arrival Time Radiology Work Phone: Radiology [facility] Start: 03-23-2024 End: 03-23-2024 ambulatory Inez Henderson Facility:[facility] Start: 03-23-2024 End: 03-23-2024 Patient encounter procedure [facility] Start: 03-08-2024 End: 03-08-2024 [...] Luc Ham MD Work Phone: [facility] [place] Start: 02-29-2024 End: 02-29-2024 ambulatory MD Demetrius Cooper Work Phone: [facility] Work Phone: Start: 02-29-2024 End: 02-29-2024 Departed Referred MD Demetrius Cooper Work Phone: [facility] Ctr-LAB Path [facility] [facility] Start: 02-16-2024 End: 02-16-2024 Office outpatient visit 25 minutes Luc Ham MD Work Phone: [facility] Comment on above: LAD (lymphadenopathy ) of right cervical region (Primary Dx) Start: 02-16-2024 End: 02-16-2024 ambulatory LUC HAM Not Available Start: 02-16-2024 End: 02-16-2024 Bamboo flowsheet Missy Lowe PA Work Phone: [facility] Start: 02-16-2024 End: 02-16-2024 Bamboo flowsheet Missy Lowe PA Work Phone: [facility] [address] Start: 02-16-2024 End: 02-16-2024 Office outpatient visit 15 minutes Missy Lowe PA Work Phone: [facility] Comment on above: Migraine without [...] General Surgery Start: 01-25-2024 End: 01-25-2024 ambulatory [facility] Start: 01-10-2024 End: 01-10-2024 ambulatory Demetrius Cooper Facility:[facility] Start: 11-09-2023 End: 11-09-2023 Patient encounter procedure Wileyella Castanoal [facility] Start: 10-21-2023 End: 10-21-2023 Patient encounter procedure Inez Castanoal [facility] Start: 09-17-2023 End: 09-17-2023 Patient encounter procedure Anjali Omalley Flori [facility] Start: 09-02-2023 End: 09-02-2023 ambulatory [facility] Work Phone: Start: 09-02-2023 End: 09-02-2023 Patient encounter procedure [facility] Sleep [facility] Work Phone: Start: 07-27-2023 End: 07-27-2023 Patient encounter procedure [facility] Physician [facility] Work Phone: Start: 05-31-2023 Office outpatient vi sit 25 minutes Gisele Brunson [facility] OutPt Start: 05-31-2023 End: 05-31-2023 ambulatory MD Demetrius Cooper Work Phone: [facility] Work Phone: Start: 05-31-2023 End: 05-31-2023 Patient encounter procedure MD Demetrius Cooper Work Phone: [facility] C[facility]-Sleep Lab Work Phone: Start: 05-25-2023 End: 05-25-2023 Patient encounter procedure Anjali Ruby [facility] Start: 04-05-2023 Telephone encounter Vaishali orr MD Work Phone: General Surgery Comment on above: Received Outside Med ical Records Start: 04-01-2023 End: 04-01-2023 ambulatory VAISHALI PRINGLE Facility[facility] Start: 04-01-2023 End: 04-01-2023 Patient encounter procedure Vaishali Pringle MD Work Phone: General Surgery Comment on above: IPMN (intraductal pa pillary mucinous neoplasm) (Primary Dx) Start: 03-10-2023 End: 03-10-2023 Patient encounter procedure Anjali [facility] Start: 03-10-2023 End: 03-10-2023 Patient encounter procedure Anjali Ruby [facility] Start: 02-25-2023 End: 02-25-2023 Patient encounter procedure Anjali Ruby [facility] Start: 02-16-2023 End: 02-16-2023 ambulatory MD Demetrius Cooper Work Phone: [facility] Ctr Work Phone: Start: 02-16-2023 End: 02-16-2023 Patient encounter procedure MD Demertius Cooper Work Phone: [facility] [place] Work Phone: Start: 01-29-2023 Office outpatient vi sit 25 minutes Gisele [facility] Start: 01-29-2023 End: 01-29-2023 ambulatory MD Demetrius Cooper Work Phone: [facility] Work Phone: Start: 01-29-2023 End: 01-29-2023 Patient encounter procedure MD Demetrius Cooper Work Phone: [facility] C[facility]-Sleep Lab Work Phone: Start: 01-27-2023 ambulatory Facility:[id number] Start: 01-27-2023 End: 01-27-2023 ambulatory MD Demetrius Cooper Work Phone: [facility] C[facility] Work Phone: Start: 01-27-2023 End: 01-27-2023 Patient encounter procedure MD Demetrius Cooper Work Phone: [facility] Ctr-Pacemaker Check Start: 01-12-2023 End: 01-12-2023 Patient encounter procedure Anjali Ruby [facility] Start: 12-17-2022 End: 12-17-2022 Patient encounter procedure Anjali [facility] Start: 12-09-2022 End: 12-09-2022 ambulatory MD Demetrius Cooper Work Phone: [facility] Work Phone: Start: 12-09-2022 End: 12-09-2022 Patient encounter procedure MD Demetrius Cooper Work Phone: [facility] C[facility]-Sleep Lab Work Phone: Start: 11-23-2022 End: 11-23-2022 Lab Drop off Demetrius Cooper [facility] Start: 10-13-2022 Office outpatient vi sit 15 minutes Gisele [facility] Start: 10-13-2022 End: 10-13-2022 ambulatory MD Mg London Work Phone: [facility] Work Phone: Start: 10-13-2022 End: 10-13-2022 Patient encounter procedure MD Mg [place] Work Phone: [facility] C[facility]-Sleep Lab Work Phone: Start: 09-29-2022 End: 09-29-[address] EDY CARNEY Facility:[facility] Start: 09-24-2022 End: 09-25-[address] MG [place] Facility:[facility] Start: 09-22-2022 End: 09-22-2022 Emergency department patient visit Gordy S[facility]chez [facility] Start: 09-22-2022 Office outpatient vi sit 15 minutes Griselda Pennington [facility] [place] Start: 09-22-2022 End: 09-22-2022 ambulatory NARENDRANATH LAKSHMIPATHY . [facility] [employer] Other Start: 08-25-2022 End: 08-26-2022 ambulatory NARENDRANATH LAKSHMIPATHY . Facility:[facility] Start: 08-12-2022 ambulatory Facility:[id number] Start: 08-12-2022 End: 08-12-2022 ambulatory MD Mg [place] Work Phone: [facility] C[facility] Work Phone: Start: 08-12-2022 End: 08-12-2022 Patient encounter procedure MD Mg [place] Work Phone: [facility] [place] Work Phone: Start: 08-11-2022 End: 08-11-2022 ambulatory NARENDRANATH LAKSHMIPATHY . Facility:[facility]1 Start: 07-29-2022 Office outpatient ne w 60 minutes Erwin Salazar [facility] C[facility] Start: 07-29-2022 End: 07-29-2022 ambulatory MD Mg [place] Work Phone: [facility] Work Phone: Start: 07-29-2022 End: 07-29-2022 Patient encounter procedure MD Mg [place] Work Phone: [facility] C[facility]-Sleep Lab Work Phone: Start: 07-23-2022 End: 07-24-2022 ambulatory SONNY LAZO . Facility:[facility] Start: 07-22-2022 End: 07-23-2022 ambulatory ALANNA Araiza [facility] Facility:[facility] Start: 07-21-2022 ambulatory Facility:[id number] Start: 07-21-2022 End: 07-21-2022 ambulatory MD gM [place] Work Phone: [facility] Work Phone: Start: 07-21-2022 End: 07-21-2022 Patient encounter procedure MD Mg [place] Work Phone: [facility]-Pacemaker Check Start: 06-18-2022 End: 07-10-2022 ambulatory SONA COPPOLA Facility:H1 Start: 06-16-2022 End: 06-17-2022 ambulatory SONA COPPOLA Facility:H1 Start: 06-11-2022 End: 06-12-2022 ambulatory ALANAN Araiza [facility] Facility:H1 Start: 05-26-2022 End: 05-26-2022 Patient encounter procedure Dequan GALICIA [facility] Start: 04-16-2022 End: 04-17-[address] ERWIN FALCON Facility:H1 Start: 03-19-[address] AMANDA CLANCY . Faci lity:H1 Start: 03-12-2022 End: 03-13-2022 ambulatory ALANNA Araiza [facility] Facility:H1 Start: 03-10-2022 End: 03-11-2022 ambulatory DIEGO COYNE Facility:H1 Start: 03-06-2022 End: 03-07-[address] DOCTOR GOFF Facility:H1 Start: 12-25-2021 End: 12-26-2021 ambulatory SONNY LAZO . Facility:H1 Start: 12-01-2021 End: 12-02-2021 ambulatory ALANNA HARDY Facility:H1 Start: 11-29-2021 End: 11-29-2021 ambulatory Leti Jose Other [facility] [employer] Other Start: 11-29-2021 Office outpatient vi sit 15 minutes Leti Jose [facility] [place] Start: 11-13-2021 End: 12-19-2021 ambulatory OSMAR JARQUIN Facility:H1 Start: 09-04-2020 End: 09-04-2020 Patient encounter procedure Param Ba Work Phone: -[facility] [place] Start: 08-15-2020 End: 08-15-2020 Patient encounter procedure Param Cosme -Pacemaker Check Start: 08-30-2019 End: 08-31-2019 Patient encounter procedure EHAB A [facility] Facility:[facility] Procedures Date Procedure Procedure Detail Performing Clinician [...] on above: Performed By: #### CBC #### [facility] [address] [place] [address] Dr. Ramsey Sanchez Start: 05-20-2020 Esophagogastroduodenoscopy Dequan [...] procedure 06/08/2025 1:30 PM EST Office Visit [facility] [address] [place] [address] [place] [address] [place] [address] [facility] Start: 04-11-2025 Creatinine measurement Creatinine Le kortney [facility] Start: 04-11-2025 Potassium measurement Potassium Ana escalante [facility] Start: 04-03-2025 End: 04-03-2025 Patient encounter procedure 04/03/2025 11:00 AM EST Office Visit [facility] [address] [place] [address] Missy Villarreal NP [address] [place], [place] [facility] Start: 01-15-2025 Influenza vaccination Influenza Vacc ine (#1) [facility] Start: 12-26-2024 Patient referral [facility] Work Phone: Start: 12-11-2024 End: 12-11-2024 Patient encounter procedure 12/11/2024 10:00 AM EDT Office Visit [facility] [address] [place] [address] 2[address] [place] [address] [place] [address] [place] [address] [facility] Start: 10-11-2024 End: 10-11-2024 Patient encounter procedure 10/11/2024 2:15 PM EDT Office Visit [facility] [address] [facility] [address] [place] [id number] Veena Adkins DO [address] [facility] [address] [place] [address] [facility] Start: 10-03-2024 [facility] Start: 09-28-2024 End: 09-28-2024 Patient encounter procedure LISANDRO [facility] Comment on above: Arrived Start: 08-29-2024 End: 08-29-2024 Patient encounter procedure VALENTÍN [facility] [address] Start: 08-21-2024 [facility] Start: 08-21-20[address] treatment [facility] Start: 08-21-2024 [facility] Start: 08-21-2024 [facility] Start: 08-20-2024 Referral to infectio us diseases physician [facility] Start: 08-20-2024 [facility] Start: 08-20-2024 CT Chest WO contrast Fi [facility] Start: 08-20-2024 CT of chest without contrast CT chest wo con [facility] Start: 08-20-2024 Hospital admission [facility] Start: 08-20-2024 [facility] Start: 08-20-2024 Bacteria identified in Blood by Culture Blood Culture [facility] Start: 08-17-2024 [facility] Start: 08-09-2024 End: 08-09-2024 [facility] Start: 08-03-2024 End: 08-03-2024 [facility] Start: 08-03-2024 [facility] Start: 07-27-2024 [facility] Start: 07-26-2024 End: 07-26-2024 Patient encounter procedure 07/26/2024 10:15 AM EDT Office Visit [facility] [address] [facility] [address] [place] [id number] Matteo Melo MD [address] [place] [address] [place] [address] [facility] Start: 07-20-2024 [facility] Start: 07-20-2024 [facility] Start: 07-17-2024 [facility] Start: 07-13-2024 [facility] Start: 07-11-2024 End: 07-11-2024 Patient encounter procedure 07/11/2024 1:15 PM EST Office Visit [facility] [address] [place] [address] Matteo Melo MD [address] [address] [facility] Start: 07-06-2024 [facility] Start: 07-03-2024 Central venous cannu la insertion OR Infusaport Insertion/Removal (Not Applicable) [facility] Start: 06-30-2024 [facility] Start: 06-23-2024 End: 06-23-2024 Patient encounter procedure VALENTÍN PALUMBO Comment on above: Arrived Start: 06-14-2024 Patient referral [facility] Work Phone: Start: 06-05-2024 End: 06-05-2024 Patient encounter procedure 06/05/2024 1:00 PM EST Appointment [facility] [address] [place] [address] [facility] Start: 05-30-2024 End: 05-30-2024 Telemedicine consultation with patient 05/30/2024 11:45 AM EST Telemedicine [facility] [address] [place] [address] [place] [address] [place] [address] [facility] Start: 05-11-2024 End: 05-11-2024 [facility] incl fluor gdnce dx w/cell washg spx [...] mouth 05/11/2024 7:17 AM EST [facility] [place] Start: 05-11-2024 End: 05-11-2024 Tonsillectomy primary/secondary age 11/> Tonsillectomy Malignant neoplasm of floor of mouth 05/11/2024 7:17 AM EST [facility] [place] Start: 04-19-2024 Subsequent hospital visit by physician 04/19/2024 Hospital Encounter [facility] [place] [address] [place] [address] [place] [address] [place], [place] [phone] [facility] [place] Start: 04-07-2024 End: 04-07-2025 Request for Pre-Admission Testing Visit Request for Pre-Admission Testing Visit Procedures Routine Oral lesion Malignant neoplasm of floor of mouth Expected: 04/07/2024 (Approximate), Expires: 04/07/2025 [facility] Service Area Work Phone: Comment on above: Expected: 04/07/2024 (Approximate), Expires: 04/07/2025 Start: 03-08-2024 End: 03-08-2024 Patient encounter procedure [facility] Comment on above: Arrived Start: 02-16-2024 End: 02-16-2024 Patient encounter procedure 02/16/2024 2:30 PM EDT Office Visit [facility] [address] [place] [address] Luc Ham MD [address] [place] [address] [facility] Start: 02-16-2024 End: 02-16-2024 Patient encounter procedure [facility] [address] Comment on above: Arrived Start: 02-01-2024 End: 02-01-2024 Patient encounter procedure 02/01/2024 1:10 PM EDT Office Visit [facility] [address] [place] [address] Luc Ham MD [address] [facility] [address] [place] [address] Arrived [facility] Comment on above: Arrived Start: 01-16-2024 Covid-19 Vaccine ( season) Covid-19 Vaccine ( season) [facility] Start: 01-16-2024 Covid-19 Vaccine () Covid-19 Vaccine ( season) [facility] Start: 01-16-2024 Covid-19 Vaccine () Covid-19 Vaccine () [facility] Start: 01-16-2024 Influenza vaccination Influenza Vacc ine (#1) [facility] Start: 05-17-2023 Advance Directive Discussion Advance Directive Discussion [facility] Start: 01-15-2023 Covid-19 Vaccine () Covid-19 Vaccine () [facility] Start: 01-15-2023 Influenza vaccination Influenza Vacc ine (#1) [facility] Start: 11-12-2022 ambulatory Ambulatory Facility:H 1 Start: 05-17-2022 Advance Directive Discussion Advance Directive Discussion [facility] Start: 05-17-2022 Depression Assessment Depression Ass essment [facility] Start: 09-04-2020 MRI of right ankle MR ankle RT wo co n [facility] Start: 09-04-2020 XR pre/post mri xray XR pre/post mri xray [facility] Start: 01-30-2015 Pneumococcal Vaccine : 65+ (2 - PPSV23 or PCV20) Pneumococcal Vaccine: 65+ (2 - PPSV23 or PCV20) [facility] Start: 01-30-2015 Pneumococcal Vaccine : 65+ (2 of 2 - PPSV23 or PCV20) Pneumococcal Vaccine: 65+ (2 of 2 - PPSV23 or PCV20) [facility] Start: 10-29-2014 RSV High Risk: (Elde rly (60+) or Population) (1 - 1-dose 75+ series) RSV High Risk: (Elderly (60+) or Population) (1 - 1-dose 75+ series) [facility] Start: 10-29-2014 RSV Vaccine (1 - 1-d ose 75+ series) RSV Vaccine (1 - 1-dose 75+ series) [facility] Start: 1999 RSV Vaccine (1 - 1-d ose 60+ series) RSV Vaccine (1 - 1-dose 60+ series) [facility] Start: 10-29-1989 Shingrix Vaccine (1 of 2) Best grix Vaccine (1 of 2) [facility] Start: 10-29-1984 Diabetes Screening Diabetes Screenin g [facility] Start: 10-29-1961 DTaP/Tdap/Td Vaccine s (1 - Tdap) DTaP/Tdap/Td Vaccines (1 - Tdap) [facility] Start: 10-29-1958 Urine microalbumin profile DTa P,Tdap,Td Vaccine (1 - Tdap) [facility] Start: 10-29-1958 Urine screening for protein Diabetes: Urine Protein Screening [facility] Start: 10-29-1957 Anxiety Screening Anxiety Screening [facility] Start: 10-29-1957 Depression Screening Depression Scre ening [facility] Start: 10-29-1949 Glaucoma screening Diabetes: R etinopathy Screening [facility] Start: 1939 Annual wellness visit Welcome to Medicare Visit [facility] Start: 1939 Echocardiography Echocardiogram [facility] Start: 1939 Hemoglobin A1c measurement Mary betes: Hemoglobin A1C [facility] Start: 1939 Lipid panel Lipid Panel [facility] Start: 1939 Medicare Annual Well ness Visit Medicare Annual Wellness Visit (AWV) [facility] Start: 1939 Urine screening for protein Diabetes: Urine Protein Screening [facility] End: 05-11-2024 Cardiac device check - Inpatient [facility] Service Area Work Phone: Comment on above: Once for 1 Occurrenc es starting 05/11/2024 until 05/11/2024 End: 05-11-2024 Cardiac device check - Surgery [facility] Work Phone: Comment on above: Once for 1 Occurrenc es starting 05/11/2024 until 05/11/2024 Comprehensive metabo lic 2000 panel - Serum or Plasma [facility] Comprehensive metabo lic 1999 panel - Serum or Plasma [facility] Comprehensive metabo lic 1999 panel - Serum or Plasma [facility] Comprehensive metabo lic 1999 panel - Serum or Plasma [facility] Comprehensive metabo lic 1999 panel - Serum or Plasma [facility] CT with contrast for radiotherapy planning [facility] CT with contrast for radiotherapy planning [facility] End: 05-11-2024 Glucose [Mass/volume] in Serum or Plasma POCT Glucose Point of Care Testing - Docked Device Routine Once (Lab) for 1 Occurrences starting 05/11/2024 until 05/11/2024 [facility] Service Area Work Phone: Comment on above: Once (Lab) for 1 Occ urrences starting 05/11/2024 until 05/11/2024 Laryngoscopy w/wo tracheoscopy dx except Direct Laryngoscopy Oral lesion Malignant neoplasm of floor of mouth [facility] [place] End: 03-02-2025 MR Biliary ducts and Pancreatic duct WO and W contrast IV MRI PANC/TRISH WO/W IVCON Radiology Routine IPMN (intraductal papillary mucinous neoplasm) 1 Occurrences starting 02/01/2024 until 03/02/2025 [facility] Work Phone: Comment on above: 1 Occurrences starti ng 02/01/2024 until 03/02/2025 End: 03-02-2025 MR Unspecified body region 3D post processing MRI 3D POST PROCESSING Radiology Routine IPMN (intraductal papillary mucinous neoplasm) 1 Occurrences starting 02/01/2024 until 03/02/2025 [facility] Comment on above: 1 Occurrences starti ng 02/01/2024 until 03/02/2025 Patient Education [facility] Work Phone: Patient referral [facility] Work Phone: Surgical pathology study Surgica l Pathology Exam Pathology and Cytology Routine Oral lesion 04/07/2024 11:37 AM EST [facility] Work Phone: Surgical pathology study [facility] S Service Area Work Phone: Comment on above: Release Upon Orderin g for 1 Occurrences starting 05/11/2024, 1 completed End: 06-05-2024 Surgical pathology study [facility] Service Ar ea Work Phone: Comment on above: Once (Lab) for 1 Occ urrences starting 06/05/2024 until 06/05/2024, 1 completed [facility] Immunizations Immunization Date Immunization Notes Care Provider Fa cility 04-17-2024 influenza, high dose seasonal, preservative-free; Translations: [Fluzone High Dose Vaccine] Demetrius Cooper [facility] 04-17-2024 influenza virus vaccine, unspecified formulation Mary Schneider MD Work Phone: [facility] Work Phone: 02-09-2024 zoster vaccine recombinant Wiley Sarmini [facility] 11-22-2023 pneumococcal 20-reta nt conjugate vaccine Wiley Sarmini [facility] 11-22-2023 zoster vaccine recombinant Wiley Sarmini [facility] 04-28-2023 COVID-19 (PFIZER) 12Y and older Demetrius Cooper MD Work Phone: [facility] 04-12-2023 influenza virus vaccine, unspecified formulation Anjali Ruby [facility] 11-25-2021 Pfizer Haque Cap SARS-CoV-2 Vaccination Luc Ham MD Work Phone: [facility] 11-25-2021 SARS-CoV-2 mRNA (ngtaqzlqtcx-cuut-iujr ose) vaccine Demetrius Cooper [facility] 11-25-2021 SARS-CoV-2, Unspecified Missy PEMBERTON Work Phone: [facility] 03-06-2021 SARS-CoV-2 (COVID-19 ) mRNA BNT-162b2 vax Demetrius Cooper [facility] Comment on above: Result Comment: 2022: [id number] 03-06-2021 SARS-CoV-2, Unspecified Luc Ham MD Work Phone: [facility] 02-18-2021 influenza virus vaccine, unspecified formulation Demetrius Cooper [facility] 02-18-2021 Influenza, injectabl e, Madin [place] Canine Kidney, preservative free, quadrivalent Luc Ham MD Work Phone: [facility] 06-27-2020 SARS-CoV-2 (COVID-19 ) Ad26 vaccine, recombinant Dequan GALICIA [facility] 06-27-2020 SARS-CoV-2 (COVID-19 ) mRNA BNT-162b2 vax Dequan GALICIA [facility] 06-27-2020 SARS-CoV-2, Unspecified Luc Ham MD Work Phone: [facility] 06-06-2020 SARS-CoV-2 (COVID-19 ) Ad26 vaccine, recombinant Dequan GALICIA [facility] 06-06-2020 SARS-CoV-2 (COVID-19 ) mRNA BNT-162b2 vax Dequan GALICIA [facility] 06-06-2020 SARS-CoV-2, Unspecified Luc Ham MD Work Phone: [facility] 02-14-2020 influenza virus vaccine, unspecified formulation Demetrius Cooper [facility] 02-14-2020 Influenza, injectabl e, Madin Mireya Canine Kidney, preservative free, quadrivalent Luc Ham MD Work Phone: [facility] 01-31-2019 influenza, high dose seasonal, preservative-free Luc Ham MD Work Phone: [facility] 01-22-2018 influenza virus vaccine, unspecified formulation Luc Ham MD Work Phone: [facility] 01-22-2018 influenza, injectabl e, quadrivalent, contains preservative Luc Ham MD Work Phone: [facility] 01-22-2018 influenza, unspecifi ed formulation Demetrius Cooper [facility] 01-30-2014 pneumococcal conjuga te vaccine, 13 valent Demetrius Cooper [facility] 01-30-2014 pneumococcal conjuga te vaccine, 7 valent Luc Ham MD Work Phone: [facility] Healthcare Payers Date Payer Category Payer Private Health Insurance f [id number] 2024 Self-pay [id number] 2023 Dual Eligibility Medicare/Medicaid Organization [facility] DUAL [facility]PLETE [id number] 2022 Medicare .[id number]. [id number] 2022 Medicare (Managed Care) 1.2. [id number] [id number] 2022 Medicare [id number] 2022 Medicare [id number] 2.16.840.1.820331.19 1959 Medicare [id number] 1959 Medicare [id number] 1959 Medicare [id number] 1959 Unknown [id number] 1939 Unknown [id number] 2.16.840.1.879594.3.579. 2.647 1939 Unknown [id number] 2.16.840.1.907924.3.579. 2.593 1939 Unknown [id number] 2.16.840.1.515593.3.579. 2.593 1939 Unknown [id number] 2.16.840.1.443018.3.579. 2.593 1939 Unknown [id number] 2.16.840.1.195670.3.579. 2.593 1939 Unknown [id number] 2.16.840.1.986068.3.579. 2.593 1939 Unknown [id number] 2.16.840.1.651437.3.579. 2.593 1939 Unknown [id number] 2.16.840.1.395513.3.579. 2.593 1939 Unknown [id number] 2.16.840.1.717941.3.579. 2.593 1939 Unknown [id number] 2.16.840.1.647752.3.579. 2.593 1939 Unknown [id number] 2.16.840.1.365556.3.579. 2.593 1939 Unknown [id number] 2.16.840.1.788572.3.579. 2.593 1939 Unknown [id number] 2.16.840.1.456569.3.579. 2.593 1939 Unknown [id number] 2.16.840.1.797855.3.579. 2.593 1939 Unknown [id number] 2.16.840.1.360678.3.579. 2.593 1939 Unknown [id number] 2.16.840.1.562065.3.579. 2.593 1939 Unknown [id number] 2.16.840.1.022276.3.579. 2.593 1939 Unknown [id number] 2.16.840.1.642379.3.579. 2.593 1939 Unknown [id number] 2.16.840.1.250830.3.579. 2.593 1939 Unknown [id number] 2.16.840.1.334071.3.579. 2.593 1939 Unknown [id number] 2.16.840.1.668749.3.579. 2.593 1939 Unknown [id number] 2.16.840.1.898980.3.579. 2.356 1939 Unknown [id number] 2.16.840.1.002680.3.579. 2.356 1939 Unknown [id number] 2.16.840.1.864078.3.579. 2.356 1939 Unknown [id number] 2.16.840.1.513676.3.579. 2.727 1939 Unknown [id number] 2.16.840.1.809046.3.579. 2. 1939 Unknown [id number] 2.16.840.1.489280.3.579. 2. 1939 Unknown [id number] 2.16.840.1.169515.3.579. 2. 1939 Unknown [id number] 2.16.840.1.271822.3.579. 2. 1939 Unknown [id number] 2.16.840.1.184713.3.579. 2. 1939 Unknown [id number] 2.16.840.1.980519.3.579. 2 1939 Unknown [id number] 2.16.840.1.390821.3.579. 2 1939 Unknown [id number] 2.16.840.1.165191.3.579. 2 1939 Unknown [id number] 2.16.840.1.495470.3.579. 2 1939 Unknown [id number] 2.16.840.1.807569.3.579. 2 1939 Unknown [id number] 2.16.840.1.722123.3.579. 2 1939 Unknown [id number] 2.16.840.1.161832.3.579. 2. 1939 Unknown [id number] 2.16.840.1.775876.3.579. 2. 1939 Unknown [id number] 2.16.840.1.444137.3.579. 2. 1939 Unknown [id number] 2.16.840.1.919684.3.579. 2. 1939 Unknown [id number] 2.16.840.1.771787.3.579. 2.727 1939 Unknown [id number] 2.16.840.1.008487.3.579. 2.727 1939 Unknown [id number] 2.16.840.1.733976.3.579. 2.1245 1939 Unknown [id number] 2.16.840.1.340343.3.579. 2.124 1939 Unknown [id number] 2.16.840.1.963766.3.579. 2.124 1939 Unknown [id number] 2.16.840.1.815121.3.579. 2.1244 1939 Unknown [id number] 2.16.840.1.841917.3.579. 2.124 1939 Unknown [id number] 2.16.840.1.199756.3.579. 2.124 1939 Unknown [id number] 2.16.840.1.792411.3.579. 2.1244 1939 Unknown [id number] 2.16.840.1.982367.3.579. 2.1244 1939 Unknown [id number] 2.16.840.1.155181.3.579. 2.124 1939 Unknown [id number] 2.16.840.1.240600.3.579. 2.125 1939 Unknown [id number] 2.16.840.1.564740.3.579. 2.125 1939 Unknown [id number] 2.16.840.1.035590.3.579. 2.125 1939 Unknown [id number] 2.16.840.1.644433.3.579. 2.1259 1939 Unknown [id number] 2.16840.1.409268.3.579. 2.1259 1939 Unknown [id number] 2.16.840.1.791657.3.579. 2.1258 1939 Unknown [id number] 2.16.840.1.965687.3.579. 2.1258 1939 Unknown [id number] 2.16.840.1.834257.3.579. 2.1258 1939 Unknown [id number] 2.16.840.1.249327.3.579. 2.1258 1939 Unknown [id number] 2.16.840.1.250517.3.579. 2.1258 1939 Unknown [id number] 2..840.1.643165.3.579. 2.1258 1939 Unknown [id number] 2.840.1.169969.3.579. 2.1258 1939 Unknown [id number] 2..840.1.343866.3.579. 2.1258 1939 Unknown [id number] 2..840.1.216028.3.579. 2.1259 Unknown [id number] 2..840.1.511723.3.579. 2.531 Unknown [id number] 2..840.1.493226.3.579. 2.531 Unknown [id number] 2.16.840.1.448524.3.579. 2.531 Unknown [id number] 2.16.840.1.865418.3.579. 2.531 Unknown [id number] 2.16.840.1.592309.3.579. 2.531 Unknown [id number] 2.16.840.1.246227.3.579. 2.531 Unknown [id number] 2.16.840.1.102616.3.579. 2.531 Unknown [id number] 2.16.840.1.695205.3.579. 2.531 Unknown [id number] 2.16.840.1.474070.3.579. 2.531 Unknown [id number] 2.16.840.1.244183.3.579. 2.531 Unknown [id number] 2.16.840.1.788557.3.579. 2.531 Unknown [id number] 2.16.840.1.908891.3.579. 2.531 Unknown [id number] 2.16.840.1.832371.3.579. 2.531 Unknown [id number] 2.16.840.1.986803.3.579. 2.531 Unknown [id number] 2.16.840.1.646203.3.579. 2.531 Unknown [id number] 2.16.840.1.275104.3.579. 2.531 Unknown [id number] 2.16.840.1.054108.3.579. 2.531 Unknown [id number] 2.16.840.1.280991.3.579. 2.531 Unknown [id number] 2.16.840.1.921602.3.579. 2.531 Unknown [id number] 2.16.840.1.420852.3.579. 2.531 Unknown [id number] 2.16.840.1.338536.3.579. 2.531 Unknown [id number] 2.16.840.1.329179.3.579. 2.531 Social History Date Type Detail Facility [facility] if ever [facility] Start: 1940 Sex Assigned At Male F [facility] Start: 04-01-2023 End: 01-18-2025 Sex Assigned At [facility] Start: 04-27-2022 End: 02-16-2024 Tobacco smoking status Ex-smoker (finding) [facility] Nicolette Comment on above: former smoker quit a t age 41, 1 PPD Patient states he sm oked about 1.5 PPD, cigarettes, from about 17 y.o. to about 41 y.o. Start: 04-10-2022 Tobacco smoking status Never [facility] Comment on above: former smoker quit a t age 41, 1 PPD Patient states he sm oked about 1.5 PPD, cigarettes, from about 17 y.o. to about 41 y.o. End: 05-17-1983 History of tobacco use Current smoker [facility] End: 05-17-1983 History of tobacco use Cigarette Smoker [facility] Start: 04-01-2023 Tobacco use and exposure Smokeless tobacco non-user [facility] Start: 04-01-2023 End: 01-18-2025 History of Social function [facility] Start: 1940 Sex Assigned At Not on file [facility] History of tobacco use Passive smoker [facility] Start: 02-12-2024 End: 01-18-2025 Alcoholic beverage intake Current drinker of alcohol (finding) [facility] Start: 12-22-2022 Tobacco Comment Years smoked: 25 [facility] Start: 12-22-2022 Alcohol Comment 1 or 2 drinks/ day, monthly or less; Caffeine: 1 drink/day [facility] Start: 04-07-2024 End: 12-04-2024 Tobacco use and exposure Former smokeless tobacco user [facility] Work Phone: Start: 04-01-2024 End: 09-11-2024 Exposure to SARS-CoV-2 (event) Not sure [facility] Start: 05-11-2024 Gender identity Identifies as male gender (finding) [facility] Work Phone: Start: 05-11-2024 Sexual orientation Heterosexual (fin ding) [facility] Work Phone: Start: 06-14-2024 End: 09-26-2024 Sex Male (finding) [facility] Start: 08-20-2024 End: 11-23-2024 Tobacco smoking status NHIS Never smoked tobacco (finding) [facility] Start: 08-21-2024 SDOH Follow up SDOH Follow up [facility] Work Phone: Sexual Orientation [facility] Start: 12-04-2024 Alcohol Comment or less or week [facility] Work Phone: Medical Equipment Procedure Code Equipment Code Equipment Origin al Text Equipment Identifier Dates Insertion of central venous catheter (CVC) with subcutaneous port for chemotherapy Vascular port/catheter [id number] Start: 07-17-2024 End: 05-11-2024 See Instructions , [...] [facility] ionnaire 2 item (PHQ-2) [Reported] [facility] Work Phone: 08-21-2024 Functional status Patient at Baseline [facility] Work Phone: 03-23-2024 Functional Status N/A [facility] 10-21-2023 Functional Status N/A [facility] 09-17-2023 Functional Status N/A [facility] 05-25-2023 Functional Status N/A [facility] 03-10-2023 Functional Status N/A [facility] 02-25-2023 Functional Status N/A [facility] 01-12-2023 Functional Status N/A [facility] 09-22-2022 Functional Status N/A [facility] 05-19-2022 Functional Status N/A [facility] Mental Status Date Assessment Result Facility 08-21-2024 Cognitive function Cognitive Sta tus Patient at Baseline [facility] Work Phone: Clinical Notes 11-29-2021 to [...] see him PRN. documented in this encounter [facility] 12-26-2024 Progress note [facility] enter 12-11-2024 History of Present illness Narrative Formatting of this note might be differe nt from the original. HEAD AND NECK SURGERY FOLLOW UP [facility] Referring Provider: Dr. Ham HPI [...] Dr Lamas (med onc) at [facility] - November 2024 post treatment PET [...] lymph nodes Procedure Note: Diagnostic Flexible Laryngoscopy (18221) Indication: patient symptoms requiring evaluation of pharyngeal/laryngeal/hypopharyngeal [...] now s/p completion of chemoradiation treatment at [facility] August 2024 - Doing well overall, scope and exam findings with improved thick mucous and edema. JUVE today on exam or imaging - Continue FREELANCE RECRUITER therapy, he will do this closer to [...] Mary Schneider MD documented in this encounter [facility] Work Phone: 12-05-2024 Note PR Electrophysiology Consult Note PR Cardiology - [facility] Reason for visit: Device at [...] (CMS/HCC) Heart valve disease Hyperlipidemia Throat cancer ([facility]/HCC) VT (ventricular tachycardia) ([facility]) PSH: Past Surgical History: Procedure Laterality Date [...] on file Intimate Partner Violence: Unknown (07/08/2023) PR Safety & Environment Fear of Current or Ex-Partner: Not on file Emotionally Abused: Not on file Physically Abused: Not on file Sexually Abused: Not on file Physically or Sexually Abused: Not on file Depression: Not at risk (09/11/2024) Received from [facility] PHQ-2 Patient Health Questionnaire-2 Score: 0 [...] MOUTH IN THE MORNING 100 tablet 3 SZPGTHSQWZ-HNSFDKF-LTUMDZQM ORAL Take by mouth if needed. clopidogrel [...] 1 tablet every day by oral route. qwrhpshgpy-cukanminkaujv-zyag (Esgic) 50-325-40 mg capsule Take 1 capsule [...] mg by mouth in the morning. HYDROcodone-acetaminophen ([place]) 5-325 mg tablet Take 1 tablet by mout (more content not included)... 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 The [place] Diabetes Association: diabetes.org ??? The Association of [...] levels in y (more content not included)... 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 Gait Casual gait is normal including [...] up in 6 months documented in this encounter[facility] [id number] History of Present illness Narrative* Veena Adkins, [...] 5 mg, Daily aspirin 81 mg, Daily dydygjjtfc-jxennylevszae-xdbgmrqt 50-325-40 MG tablet 1 tablet, Every 4 [...] 2005 ablation OTHER SURGICAL HISTORY 2007 sphincterotomy [place] CHOLECYSTECTOMY 02/2020 Laparoscopic Cholecystectomy - [place] IMPLANT ARTIFICIAL SPHINCTER 2017 PROSTATE 2000 TONSILLECTOMY [...] schedule early next week. documented in this encounterSt. [facility] Medical [id number] Radiology Diagnostic study [facility] [place] [address] [place] [address] CT Scan Report Signed Patient: Jeremie Bennett MR#: [id number] : 1940 Acct:[id number] Age/Sex: 83 / M ADM Date: 5 Loc: ER Room: Type: [facility] ER Attending Dr: Copies to: Maru Hayes [...] Gordon M.D. 09/20/2024 8:03 PM Dictation Location: [facility]--17 Transcribed By: PERLA 09/20/242002 Dictated By: Rafi Gordon II, MD 09/20/241947 Signed By: 09/20/242002 [facility] Work Phone: 1(278) 466-967005-07-2025 Hospital Discharge instructions Additional Instructions Please return [...] testing/monitoring to rule out evidence of possible cancer.[facility] Work Phone: 1(951) 508-148405-01-2025 NotePatient Education Nutrition BMI for Adults Body [...] for Disease Control and Prevention: cdc.gov ??? [place] Heart Association: heart.org ??? National Heart, Lung, and Blood Rickreall: nhlbi.nih.gov This information is not intended to replace advice given to you by your health care provider. Make sure you discuss any questions you have with your health care provider. Document Revised: 01/21/2023 Document Reviewed: 01/14/2023 [employer] Patient Education ? 2023 [employer]yal.[facility] 09-11-2024 History of Present illness Narrative* Mary Schneider MD - 09/11/2024 2:00 PM EDT HEAD AND NECK SURGERY FOLLOW UP [facility] Referring Provider: Dr. Ham HPI [...] onc) at [facility] after completion of chemoradiation treatment earlier this month. Weight down to 149 lbs (prior 170 lbs). Swallowing liquids, saw FREELANCE RECRUITER during treatment, not recently. Had pacemaker replaced. [...] lymph nodes Procedure Note: Diagnostic Flexible Laryngoscopy (48992) Indication: patient symptoms requiring evaluation of pharyngeal/laryngeal/hypopharyngeal [...] now s/p completion of chemoradiation treatment at [facility] August 2024 - Doing well overall, scope and exam findings as expected - Recommend continued FREELANCE RECRUITER therapy, he will do this closer to home - Discussed imaging, he has PET scheduled in November - Will need post-treatment NavDx either now or at next appointment - Discussed NCCN guidelines and ongoing surveillance - Follow up with me in 2-3 months after PET, certainly sooner if any issues Mary Schneider MD documented in this [facility] Work Phone: 1(107) 933-360604-24-2025 Evaluation note* Diagnosis Onset Date Resolution Status [...] Tongue cancer acute November 23, 2024 10:01am [facility] Work Phone: 1(207) 423-752404-24-2025 Evaluation note* Diagnosis Onset Date Resolution Status [...] of oropharynx acute November 23, 2024 10:01am [facility] Work Phone: 1(119) 190-158504-07-2025 [place] [id number] Discharge Summary Signed Patient: Jeremie Bennett MR#: [id number] : 1940 Acct:[id number] Age/Sex: 83 / M Adm Date: 5 Loc: Room: [address] [place] [address]: Zeke Brennan MD Copies to: [...] discharged home stable condition the [facility] with few more days of oral antimicrobial [...] Continuity of Care Document Health Concerns: A [facility] screening has identified you as FRAIL or [...] Strong:Four Ways to Beat the Frailty Risk https://www.[facility].org/health/xnezqzmw-enc-obdgskrufp/st ai-gujzkj-fbaq- nxtz-lw-xedk-acs-dlhgveb-eejg Exam Physical Exam Vital Signs: Temp Pulse [...] % (Auto) 75.8, Lymph % (Auto) 9.0, [place] % (Auto) 13.6, Eos % (Auto) 1.0, Baso % (Auto) 0.6, Nucleat RBC Rel Count 0.1, Neut # (Auto) 4.7, Lymph # (Auto) 0.6 L, [place] # (Auto) 0.8, Eos # (Auto) 0.1, [...] % (Auto) 77.0, Lymph % (Auto) 10.5, [place] % (Auto) 11.3, Eos % (Auto) 0.7, Baso % (Auto) 0.5, Nucleat RBC Rel Count 0.2, Neut # (Auto) 5.7, Lymph # (Auto) 0.8 L, [place] # (Auto) 0.8, Eos # (Auto) 0.1, Baso # (Auto) 0.0, Monocyte Dist Width 23.19 H, ESR 42 H, PT 12.9, INR 1.1, Lactic Acid 0.8, C-Reactive Prot, Quant Cancelled 08/20/24 12:20: PHA Creatinine Clear 58.71, Sodium 136, Potassium 3.7, Chloride 104, Carbon Irogssi82.4, Anion Gap 10.3, BUN 16, Creatinine 0.85, Est GFR (CKD- EPI) > 60.0, Glucose 106 H, Calcium 8.4 L, Total Bilirubin 0.6, AST 18, ALT 17, Alkaline Phosphatase 66, C-Reactive Prot, Quant 3.3 H, Total Protein 5.9 L, Albumin 3.4 L, Globulin 2.5, Albumin/Globulin Ratio 1.4 Documented By: Zeke Brennan MD 08/21/24 1407 Signed By: 08/21/[address] [facility]04-07-2025 [place] [address] Hospitalist Progress Note Signed Patient: Jeremie Bennett MR#: [id number] : 1940 Acct:[id number] Age/Sex: 83 / M Adm Date: 5 Loc: Room: 5H5710-1 Type: ADM IN Attending Dr: Zeke Brennan [...] care and confirmed it with the re sident/student/WORK FORCE ADVISOR. This patient presented to the emergency department [...] spray 08/21/24 09:00 08/21/24 09:02 Fluticasone Propionate Campus 120 Campus/16 Gm Bottle INTRANASAL 08/21/25 08:59 2 spray QAM [facility] Administration Ceftriaxone Sodium 1 gm in 50 mls @ 100 mls/hr 08/21/24 22:00 Rocephin IV QHS [facility] Isosorbide Mononitrate 30 mg 08/21/24 09:00 08/21/24 09:00 Isosorbide Mononitrate 24hr Er 30 Mg Tab.Er.24h PO 08/21/25 08:59 30 mg QAM [facility] Administration Latanoprost 1 drops 08/21/24 21:00 Latanoprost 0.005% Op Soln 50 Drops/2.5 Ml Bottle EYE-BOTH 08/21/25 20:59 QPM [facility] Lidocaine/Prilocaine 1 applic 08/20/24 21:59 Lidocaine-Prilocaine Cr 2.5-2.5% 5 Gm Tube TOPICAL 08/20/25 21:58 ONCE PRN pain Metformin HCl 500 mg 08/21/24 08:00 08/21/24 09:00 Metformin 500 Mg Tablet PO 08/21/25 07:59 500 mg DAILY@0800 [facility] Administration Multi-Ingredient Mouthwash/Gargle 10 ml 08/20/24 22:47 [...] 1135 Signed By: 08/21/24 1414 08/21/[address] [facility]04-07-2025 Consult note Author Yash Thomas [facility] Note Date/Time August 21, 2024 11:1 0am [facility] [address] [place] [address] Infect. Disease Consult Note Signed Patient: Jeremie Bennett MR#: [id number] : 1940 Acct:[id number] Age/Sex: 83 / M Adm Date: 5 Loc: Room: [address] [place] [address] Type: ADM IN Attending Dr: Zeke Brennan [...] PM CC: Zeke Brennan MD [facility] Medical History Pacemaker Prostate cancer surgery [...] Heart disease History of stroke [facility]: Diagnosed with Stroke Hypertension Emphysema lung ESRD (end stage renal disease) Sister Cancer [facility]: Diagnosed with Cancer Lymphoma Social [...] 20 Mg Tablet) 20 mg PO QPM [facility] Stop: 08/21/25 20:59 Fentanyl (Fentanyl Patch 12 Mcg/Hour Patch.Td72) 12 mcg TRANSDERML Q72HR [facility]; Protocol Fluticasone Propionate (Fluticasone Propionate Campus 120 Campus/16 Gm Bottle) 2 spray INTRANASAL QAM [facility] Stop: 08/21/25 08:59 Last Admin: 08/21/24 09:02 Dose: 2 spray Ceftriaxone Sodium (Rocephin) 1 gm in 50 mls @ 100 mls/hr IV QHS [facility] Isosorbide Mononitrate (Isosorbide Mononitrate 24hr Er 30 Mg Tab.Er.24h) 30 mg PO QAM [facility] Stop: 08/21/25 08:59 Last Admin: 08/21/24 09:00 Dose: 30 mg Latanoprost (Latanoprost 0.005% Op Soln 50 Drops/2.5 Ml Bottle) 1 drops EYE-BOTH QPM [facility] Stop: 08/21/25 20:59 Lidocaine/Prilocaine (Lidocaine-Prilocaine Cr 2.5-2.5% 5 Gm Tube) 1 applic TOPICAL ONCE PRN PRN Reason: pain Stop: 08/20/25 21:58 Metformin HCl (Metformin 500 Mg Tablet) 500 mg PO DAILY@0800 [facility] Stop: 08/21/25 07:59 Last Admin: 08/21/24 09:00 Dose: 500 mg Multi-Ingredient Mouthwash/Gargle (Magic Mouthwash With Lidocaine) 10 ml PO QIDPRN PRN Reason: mucositis Stop: 08/20/25 22:46 Nystatin (Nystatin Susp 500,000 Unit/5 Ml Udc) 500,000 unit PO QID [facility] Stop: 08/21/25 08:59 Last Admin: 08/21/24 09:01 Dose: 500,000 unit Olanzapine (Olanzapine 2.5 Mg Tablet) 2.5 mg PO BID [facility] Stop: 08/21/25 08:59 Last Admin: 08/21/24 09:00 Dose: 2.5 mg Ondansetron HCl (Ondansetron Odt 4 Mg Tab.Rapdis) 8 mg PO Q8HR PRN PRN Reason: nausea and vomiting Stop: 08/20/25 22:49 Oxycodone HCl (Oxycodone Ir 5 Mg Tablet) 10 mg PO Q4HR PRN PRN Reason: pain Last Admin: 08/21/24 09:01 Dose: 10 mg Pantoprazole Sodium (Pantoprazole 40 Mg Tablet.Dr) 40 mg PO BID [facility] Stop: 08/21/25 08:59 Last Admin: 08/21/24 09:00 [...] 10 Ml Syringe) 10 ml IV-PUSH Q8H [facility] Stop: 08/20/25 19:44 Last Admin: 08/21/24 03:06 Dose: Not Given Sotalol HCl (Sotalol 80 Mg Tablet) 40 mg PO BID [facility] Stop: 08/21/25 08:59 Last Admin: 08/21/24 09:01 Dose: 40 mg Tizanidine HCl (Tizanidine 4 Mg Tablet) 4 mg PO QPM [facility] Stop: 08/21/25 20:59 Zonisamide (Zonisamide 25 Mg Capsule) 25 mg PO BID [facility] Stop: 08/21/25 08:59 Last Admin: 08/21/24 09:00 [...] cultures. Documented By: Yash Thomas MD 08/21/24 1058 Signed By: <Electronically signed by MD Yash Thomas> 08/21/24 1112 [facility] Work Phone: 1(489) 455-161504-07-[address] [address] Infect. Disease Consult Note Signed Patient: Jeremie Bennett MR#: [id number] : 1940 Acct:[id number] Age/Sex: 83 / M Adm Date: 5 Loc: 3T Room: [address] [place] [address] Type: ADM IN Attending Dr: Zeke Brennan [...] PM CC: Zeke Brennan MD [facility] Medical History Pacemaker Prostate cancer surgery [...] stage renal disease) Sister Cancer [facility] Problem: Diagnosed with Cancer Lymphoma Social [...] 81 Mg Tab.Chew) 81 mg PO DAILY [facility] Stop: 08/21/25 08:59 Last Admin: 08/21/24 09:01 Dose: 81 mg Atorvastatin Calcium (Atorvastatin 20 Mg Tablet) 20 mg PO QPM [facility] Stop: 08/21/25 20:59 Clopidogrel Bisulfate (Clopidogrel Bisulfate 75 Mg Tablet) 75 mg PO DAILY [facility] Stop: 08/21/25 08:59 Last Admin: 08/21/24 09:00 Dose: 75 mg Dorzolamide HCl (Dorzolamide 2% Op Soln 200 Drops/10 Ml Bottle) 1 drops EYE-BOTH BID [facility] Stop: 08/21/25 08:59 Last Admin: 08/21/24 09:04 Dose: 1 drops Famotidine (Famotidine 20 Mg Tablet) 20 mg PO QPM [facility] Stop: 08/21/25 20:59 Fentanyl (Fentanyl Patch 12 Mcg/Hour Patch.Td72) 12 mcg TRANSDERML Q72HR [facility]; Protocol Fluticasone Propionate (Fluticasone Propionate Campus 120 Campus/16 Gm Bottle) 2 spray INTRANASAL [facility] Stop: 08/21/25 08:59 Last Admin: 08/21/24 09:02 Dose: 2 spray Ceftriaxone Sodium (Rocephin) 1 gm in 50 mls @ 100 mls/hr IV QHS [facility] Isosorbide Mononitrate (Isosorbide Mononitrate 24hr Er 30 Mg Tab.Er.24h) 30 mg PO QAM [facility] Stop: 08/21/25 08:59 Last Admin: 08/21/24 09:00 Dose: 30 mg Latanoprost (Latanoprost 0.005% Op Soln 50 Drops/2.5 Ml Bottle) 1 drops EYE-BOTH QPM [facility] Stop: 08/21/25 20:59 Lidocaine/Prilocaine (Lidocaine-Prilocaine Cr 2.5-2.5% 5 Gm Tube) 1 applic TOPICAL ONCE PRN PRN Reason: pain Stop: 08/20/25 21:58 Metformin HCl (Metformin 500 Mg Tablet) 500 mg PO DAILY@0800 [facility] Stop: 08/21/25 07:59 Last Admin: 08/21/24 09:00 Dose: 500 mg Multi-Ingredient Mouthwash/Gargle (Magic Mouthwash With Lidocaine) 10 ml PO QIDPRN PRN Reason: mucositis Stop: 08/20/25 22:46 Nystatin (Nystatin Susp 500,000 Unit/5 Ml Udc) 500,000 unit PO QID [facility] Stop: 08/21/25 08:59 Last Admin: 08/21/24 09:01 Dose: 500,000 unit Olanzapine (Olanzapine 2.5 Mg Tablet) 2.5 mg PO BID [facility] Stop: 08/21/25 08:59 Last Admin: 08/21/24 09:00 Dose: 2.5 mg Ondansetron HCl (Ondansetron Odt 4 Mg Tab.Rapdis) 8 mg PO Q8HR PRN PRN Reason: nausea and vomiting Stop: 08/20/25 22:49 Oxycodone HCl (Oxycodone Ir 5 Mg Tablet) 10 mg PO Q4HR PRN PRN Reason: pain Last Admin: 08/21/24 09:01 Dose: 10 mg Pantoprazole Sodium (Pantoprazole 40 Mg Tablet.Dr) 40 mg PO BID [facility] Stop: 08/21/25 08:59 Last Admin: 08/21/24 09:00 Dose: 40 mg Rivaroxaban (Rivaroxaban 10 Mg Tablet) 10 mg PO QHS [facility] Stop: 08/21/25 21:59 Sennosides (Sennosides 8.6 Mg [...] MD 08/21/24 1053 Signed By: 08/21/[address] [facility]04-07-2025 Radiology Diagnostic study note [facility] [place] [address] [place] [address] CT Scan Report Signed Patient: Jeremie Bennett MR#: [id number] : 1940 Acct:[id number] Age/Sex: 83 / M ADM Date: 5 Loc: Room: [address] [place] [address] Type: ADM IN Attending Dr: Jaiden Nance [...] Christian Melton M.D.08/21/2024 5:58 AM Dictation Location: [facility]--20 Transcribed By: [facility] 08/21/24 0558 Dictated By: Christian Melton DO 08/21/24 0555 Signed By: 08/21/[address] [facility]03-26-2025 Progress note Author Debora Wild [facility] Note Date/Time August 09, 2024 10: 25am [facility] [address] [place] [address] Palliative Medicine Encounter Patient: Jeremie Bennett MR#: [id number] : 1940 Acct:[id number] Age/Sex: 83 / M Copies to: RAYSHAWN [...] tablet 81 mg PO DAILY 06/14/24 08/09/24 jhfneqy-erfauygfezbti-lumbufst 250 1 tab PO Q4-6H PRN pain [...] Alcohol Substance Abuse Comment: rare alcohol use [place] Symptom Assessment Scale Pain: throat pain controlled [...] recorder, note dictated by Debora Wild APRN, WORK FORCE ADVISOR-C ACHPN Dictated By: Debora Wild APRN DD/ 0945 Signed By: <Electronically signed by RAYSHAWN Wild> 08/09/[address] [place] [address] Work Phone: 1(823) 312-889003-26-2025 [place] [address] Palliative Medicine Encounter Patient: Jeremie Bennett MR#: [id number] : 1940 Acct:[id number] Age/Sex: 83 / M Copies to: RAYSHAWN [...] tablet 81 mg PO DAILY 06/14/24 08/09/24 wvqoows-flxzzvxxpkkhq-yokxisew 250 1 tab PO Q4-6H PRN pain [...] Is patient having pain?: Yes [facility] Medical History (Updated 08/09/24 @ 09:38 by Viola Adan [facility]) Pacemaker Prostate cancer surgery Neuropathy Vertigo Migraine [...] Alcohol Substance Abuse Comment: rare alcohol use [place] Symptom Assessment Scale Pain: throat pain controlled [...] recorder, note dictated by Debora Wild APRN, WORK FORCE ADVISOR-C ACHPN Dictated By: Debora Wild APRN DD/ 0945 Signed By: 08/09/[address] [facility]03-12-2025 Progress note Author Maru Ma [facility] Note Date/Time July 26, 2024 12: 02pm [facility] [address] [place] [address] Palliative Medicine Encounter Patient: Jeremie Bennett MR#: [id number] : 1940 Acct:[id number] Age/Sex: 83 / M Copies to: DO [...] tablet 81 mg PO DAILY 06/14/24 07/26/24 petvggb-kofdqfdxzmckv-tkubdzdx 250 1 tab PO Q4-6H PRN pain [...] Family History (System 07/24/24 @ 13:52 by Niik Snow) Father Glaucoma Mother Heart disease History of stroke [facility] Problem: Diagnosed with Stroke Hypertension Emphysema lung ESRD (end stage renal disease) Sister Cancer [facility] Problem: Diagnosed with Cancer Lymphoma Social History Smoking Status: Former smoker Tobacco Type: cigarettes Substance Use Type: Alcohol Substance Abuse Comment: rare alcohol use [place] Symptom Assessment Scale See above Exam Exam [...] <Electronically signed by FELLOW Mario El> 07/26/24 4721 [facility] Work Phone: 1(614) 488-842103-12-[address] [place] [address] Palliative Medicine Encounter Patient: Jeremie Bennett MR#: [id number] : 1940 Acct:[id number] Age/Sex: 83 / M Copies to: DO [...] tablet 81 mg PO DAILY 06/14/24 07/26/24 algfdib-qriimonldhrci-obeuzbvk 250 1 tab PO Q4-6H PRN pain [...] Alcohol Substance Abuse Comment: rare alcohol use [place] Symptom Assessment Scale See above Exam Exam [...] 0833 Signed By: 07/26/24 1202 07/26/[address] 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, 2024 8:13am Cancer associated pain acute [facility] 2024 8:22am Nausea acute July 26 8:22am 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, 2024 8:22am Cancer associated pain acute [facility] 2024 7:29am Constipation acute August 02, 2024 7:29am Squamous cell carcinoma of oropharynx acute August 02, 2024 7:29am Thrush, oral acute August 02, 2024 7:29am [facility] Work Phone: 1([phone]) 456-622203-12-2025 Evaluation note* Diagnosis Onset Date Resolution Status Admit Date 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, 2024 8:13am Cancer associated pain acute [facility] 2024 8:22am Nausea acute July 26 8:22am 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, 2024 8:22am Cancer associated pain acute [facility] 2024 7:29am Constipation acute August 02, 2024 7:29am Squamous cell carcinoma of oropharynx acute August 02, 2024 7:29am Thrush, oral acute August 02, 2024 7:29am Cancer associated pain acute [facility] 2024 7:51am Constipation acute August 09, 2024 7:51am Nausea acute August 09 7:51am Squamous cell carcinoma of oropharynx acute August 09, 2024 7:51am Squamous cell carcinoma of oropharynx acute August 09, 2024 9:23am [facility] Work Phone: [phone]) 712-843903-12-2025 Evaluation note* Diagnosis Onset Date Resolution Status Admit Date 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, 2024 8:13am Cancer associated pain acute [facility] 2024 8:22am Nausea acute July 26 8:22am 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, 2024 8:22am Cancer associated pain acute [facility] 2024 7:29am Constipation acute August 02, 2024 7:29am Squamous cell carcinoma of oropharynx acute August 02, 2024 7:29am Thrush, oral acute August 02, 2024 7:29am Cancer associated pain acute [facility] 2024 7:51am Constipation acute August 09, 2024 7:51am Nausea acute August 09 7:51am Squamous cell carcinoma of oropharynx acute August 09, 2024 7:51am Squamous cell carcinoma of oropharynx acute August 09, 2024 9:23am Cancer associated pain acute [facility] 2024 7:59am Constipation acute August 16, 025 7:59am Nausea acute August 16 7:59am Squamous cell carcinoma of oropharynx acute August 16, 2024 7:59am [facility] Work Phone: 1([phone]) 221-588003-12-2025 Evaluation note* Diagnosis Onset Date Resolution Status Admit Date 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, 2024 8:13am Cancer associated pain acute [facility] 2024 8:22am Nausea acute July 26 8:22am 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, 2024 8:22am Cancer associated pain acute [facility] 2024 7:29am Constipation acute August 02, 2024 7:29am Squamous cell carcinoma of oropharynx acute August 02, 2024 7:29am Thrush, oral acute August 02, 2024 7:29am Cancer associated pain acute [facility] 2024 7:51am Constipation acute August 09, 2024 [...] 202024 7:35pm Pneumonia acute August 20 7:35pm [facility] Work Phone: 1([phone]) 480-177703-12-2025 Evaluation note* Diagnosis Onset Date Resolution Status Admit Date 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, 2024 8:13am Cancer associated pain acute [facility] 2024 8:22am Nausea acute July 26 8:22am 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, 2024 8:22am Cancer associated pain acute [facility] 2024 7:29am Constipation acute August 02, 2024 7:29am Squamous cell carcinoma of oropharynx acute August 02, 2024 7:29am Thrush, oral acute August 02, 2024 7:29am Cancer associated pain acute [facility] 2024 7:51am Constipation acute August 09, 2024 [...] of oropharynx acute August 20, 2024 7:35pm [facility] Work Phone: 1([phone]) 161-738203-12-2025 Evaluation note* Diagnosis Onset Date Resolution Status Admit Date 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, 2024 8:13am Cancer associated pain acute [facility] 2024 8:22am Nausea acute July 26 8:22am 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, 2024 8:22am Cancer associated pain acute [facility] 2024 7:29am Constipation acute August 02, 2024 7:29am Squamous cell carcinoma of oropharynx acute August 02, 2024 7:29am Thrush, oral acute August 02, 2024 7:29am Cancer associated pain acute [facility] 2024 7:51am Constipation acute August 09, 2024 [...] of oropharynx acute September 11, 2024 9:55am [facility] Work Phone: 1(654) 975-619703-12-2025 Evaluation note* Diagnosis Onset Date Resolution Status Admit Date 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, 2024 8:13am Cancer associated pain acute [facility] 2024 8:22am Nausea acute July 26 8:22am 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, 2024 8:22am Cancer associated pain acute [facility] 2024 7:29am Constipation acute August 02, 2024 7:29am Squamous cell carcinoma of oropharynx acute August 02, 2024 7:29am Thrush, oral acute August 02, 2024 7:29am Cancer associated pain acute [facility] 2024 7:51am Constipation acute August 09, 2024 [...] :36pm Thrush, oral acute September 26 2:36pm [facility] Work Phone: 1(444) 302-609303-05-2025 NoteUTP Cardiovascular Medicine [facility] Patient here for follow-up after his [...] a provider in 3 months. Boy Buitrago APRN-MANAGER [facility] Cardiovascular MedicineOhioHealth [facility] Hospital02-26-2025 Progress noteUnParma Community [place] [address] Cancer Center Note Signed Patient: Jeremie Bennett MR#: [id number] : 1940 Acct:[id number] Age/Sex: 83 / M Type: REG AMB [...] by IHC was equivocal. As per the [facility] tumor board recommendation is either doing extensive [...] his week 1 of cisplatin. Labs [place] [facility] [place] 07[place]03[place]24 revealed hgb 13.3, cr is 1.0. 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 He is [...] positive squamous cell carcinoma. Tumor board at [facility] [place] [facility] and the recommended concurrent chemoradiation. Past [...] with concurrent chemoradiation. Since he lives in [place] he was referred by Dr. Mary Schneider from ENT at [facility] to our medical oncology and radiation oncology at [facility]. He is referred to medical oncology for [...] his week 1 of cisplatin. Labs at [facility] [place] 07/03/24 revealed hgb 13.3, cr is 1.0. 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 Rest of 14 point systems were reviewed [...] PO QAM aspirin 81 mg PO DAILY linomrn-swjiyqgwemgsp-oksqmxgr 250-250-65 mg (Excedrin Migraine) 1 tab PO [...] voiced at time of intake. [facility] Medical History Medical History (Updated 07/06/24 [...] Mother Heart disease History of stroke [facility] Problem: Diagnosed with Stroke Hypertension Emphysema lung ESRD (end stage renal disease) Sister Cancer [facility] Problem: Diagnosed with Cancer Lymphoma Social [...] MD DD/ [id number] Signed By: 07/12/[address] [facility]02-24-2025 NotePACEMAKER GENERATOR REPLACEMENT PROCEDURE NOTE DATE OF [...] x 2 weeks Stacey Brunner MD Cardiac ElectrophysiologyOhioHealth Doctors Hospital02-20-2025 Progress note Author Debora Wild [facility] Note Date/Time July 06, 2024 11:40am [facility] [address] [place] [address] Palliative Medicine Encounter Patient: Jeremie Bennett MR#: [id number] : 1940 Acct:[id number] Age/Sex: 83 / M Copies to: RAYSHAWN [...] tablet 81 mg PO DAILY 06/14/24 06/22/24 ovobouk-dwhzjnmtrujbh-gmdhmnpr 250 1 tab PO Q4-6H PRN pain [...] Is patient having pain?: No [facility] Medical History (Updated 07/06/24 @ 09:33 [...] Alcohol Substance Abuse Comment: rare alcohol use [place] Symptom Assessment Scale Pain: intermittent scratchy throat/ [...] mins #about Jeremie: Kaya moved her from [place] collect [place] Exam Exam General - A&O, accompanied by [...] recorder, note dictated by Debora Wild APRN, WORK FORCE ADVISOR-C ACHPN Dictated By: Debora Wild APRN DD/ 0858 Signed By: <Electronically signed by RAYSHAWN Wild> 07/06/24 1149 [facility] Work Phone: 1(631) 937-352602-20-2025 [place] [address] Palliative Medicine Encounter Patient: Jeremie Bennett MR#: [id number] : 1940 Acct:[id number] Age/Sex: 83 / M Copies to: RAYSHAWN [...] tablet 81 mg PO DAILY 06/14/24 06/22/24 atvuala-imlzopmlorjwc-qcediotg 250 1 tab PO Q4-6H PRN pain [...] Is patient having pain?: No [facility] Medical History (Updated 07/06/24 @ 09:33 [...] Alcohol Substance Abuse Comment: rare alcohol use [place] Symptom Assessment Scale Pain: intermittent scratchy throat/ [...] Jeremie: Kaya moved her from [facility] [place] Exam Exam General - A&O, accompanied by [...] recorder, note dictated by Debora Wild APRN, WORK FORCE ADVISOR-C ACHPN Dictated By: Debora Wild APRN DD/ 0858 Signed By: 07/06/[address] [facility]02-18-2025 NoteNurse Consultation Note Reason for Visit patient [...] PRN, 1 refills fluticasone Nasal 0.05 mg/inh [place], See Instructions furosemide 20 mg Tab, 20 [...] influenza virus vaccine, inactivated 04/12/2023 Recorded SARSCoV2 mRNA(jotqfyijt-qrqm-bekago) vac 11/25/2021 Recorded SARS-CoV-2 (COVID-19) mRNA BNT-162b2 [...] PRN, 1 refills fluticasone Nasal 0.05 mg/inh [place], See Instructions furosemide 20 mg Tab, 20 [...] influenza virus vaccine, inactivated 04/12/2023 Recorded SARSCoV2 mRNA(wswsibvpu-bbql-izvaak) vac 11/25/2021 Recorded SARS-CoV-2 (COVID-19) mRNA BNT-162b2 [...] chemo treatment. Patient sees an ENT at [facility]. Patient is aware of hearing loss, [...] function Impressions: Results to Dr. Faustin at [facility] per patient. documented in this encounterSt. Joseph Medical [id number] History of Present illness Narrative* Matteo Bell MD - 06/20/2024 3:15 PM EST Images from the original note were not included. Jeremie Bennett 1940 Jeremie Bennett is a 83 y.o. male presents with chief complaint of Consult (Port - Ref Dr LAMAS Tonguecancer/Having pacemaker generator change on 07-10-24 / [place] cardiology Dr Brunner.) HPI: Mr. Bennett is [...] 5 mg, Daily aspirin 81 mg, Daily sqykozxzeq-hpxaajvijzkkg-ogrpqcew 50-325-40 MG tablet 1 tablet, Every 4 [...] 2004 ablation OTHER SURGICAL HISTORY 2006 sphincterotomy [place] CHOLECYSTECTOMY 02/2020 Laparoscopic Cholecystectomy - [place] IMPLANT ARTIFICIAL SPHINCTER 2017 PROSTATE 2000 TONSILLECTOMY [...] placed on the right. documented in this encounterSt. Joseph Medical [id number] Progress note Author Talib LamasFranciscan Healthkentrell [facility] Note Date/Time June 14, 2024 1 1:06am [facility] [place] [address] Cancer Center Note Signed Patient: Jeremie Bennett MR#: [id number] : 1940 Acct:[id number] Age/Sex: 83 / M Type: REG AMB [...] by IHC was equivocal. 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 He is [...] positive squamous cell carcinoma. Tumor board at [facility] [place] [facility] and the recommended concurrent chemoradiation. Past [...] with concurrent chemoradiation. Since he lives in [place] he was referred by Dr. Mary Schneider from ENT at [facility] to our medical oncology and radiation oncology at [facility]. He is referred to medical oncology for [...] PO DAILY aspirin 81 mg PO DAILY pgboaej-fuppdxylkyvwu-jyjmtumw 250-250-65 mg (Excedrin Migraine) 1 tab PO [...] card, magnet, caregiver resource list, cone health nutrition guide, and cancer rehabilitation pamphlet provided [...] to have pace maker replaced 07/10/2024 at [facility]. [facility] Medical History Medical History (Updated 06/14/24 [...] signed by Talib Faustin MD> 06/14/24 1106 [facility] Work Phone: 1([phone]) 229-357201-29-2025 Evaluation note* Diagnosis Onset Date Resolution Status Admit Date Squamous cell carcinoma of oropharynx acute June 14 9:25am Tongue cancer acute May 9:25am Squamous cell carcinoma of oropharynx acute June 14 10:28am [facility] Work Phone: 1([phone]) 106-899101-29-2025 Evaluation note* Diagnosis Onset Date Resolution Status Admit Date Squamous cell carcinoma of oropharynx acute June 14 9:25am Tongue cancer acute May 9:25am Squamous cell carcinoma of oropharynx acute June 14 10:28am Encounter for palliative care acute July 06, 2024 8:00am 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 06, 025 8:00am [facility] Work Phone: 1([phone]) 329-591101-29-2025 Evaluation note* Diagnosis Onset Date Resolution Status [...] 8:29am Tongue cancer acute July 122024 8:29am [facility] Work Phone: 1([phone]) 251-507401-29-2025 Progress [facility]UnLongview [facility] [place] [address] Cancer Center Note Signed Patient: Jeremie Bennett MR#: [id number] : 1940 Acct:[id number] Age/Sex: 83 / M Type: REG AMB [...] by IHC was equivocal. 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 He is [...] positive squamous cell carcinoma. Tumor board at [facility] [place] and the recommended concurrent chemoradiation. [...] with concurrent chemoradiation. Since he lives in [place] he was referred by Dr. Mary Schneider from ENT at [facility] to our medical oncology and radiation oncology at [facility]. He is referred to medical oncology for [...] PO DAILY aspirin 81 mg PO DAILY ylmymlt-vfuobuanzlezo-kdyckgek 250-250-65 mg (Excedrin Migraine) 1 tab PO [...] card, magnet, caregiver resource list, cone health nutrition guide, and cancer rehabilitation pamphlet provided [...] to have pace maker replaced 07/10/2024 at [facility]. [facility] Medical History Medical History (Updated 06/14/24 [...] heart artery stent Family History Family History (Reviewed 03/12/24 @ 10:30 by Renetta Henao [facility]) Father Glaucoma Mother History of stroke Legacy [...] MD DD/ 0953 Signed By: 06/14/[address] [facility]01-20-2025 Hospital Discharge instructions* Discharge Instructions* Bob Larson [...] questions related to your procedure: Please call [phone] between the hours of 7:00am-5:00pm Wednesday through Wednesday. Please call [phone] after 5:00pm and on weekends and holidays. In the event of an emergency call 911 or go to your nearest emergency room. documented in this encounterDayton Children's Hospital Work Phone: [phone]) 145-866801-20-2025 Miscellaneous Notes* Post-Procedure Note - Juan Albright [...] and Time Out: [facility] - Pre-procedure Verification completed TIME OUT - Final Verification completed immediately prior to procedure start DEBRIEF completed General Information: Date/Time of Procedure: 06/05/24 at 4:17 PM Indication(s): Hx of SCC, enlarged left cervical chain lymph node Findings: See PACS Procedure performed by: Juan Albright MD Cadd Manager(s): Dr. Gaby Perez MD Estimated Blood Loss [...] Albright MD, PGY-6 Interventional Radiology IR pager: [phone] NON-Urgent orthodontic technician weekends and after hours weekdays (5pm - 5am) IR pager: [phone] Urgent & emergent orthodontic technician weekends and after hours weekdays (5pm-7am) IR pager: [phone] * Pre-Procedure Note - Juan Albright MD [...] by mouth once daily., Disp: , Rfl: yudhvulkfw-wxbqkavjgayps-inmy 50-325-40 mg tablet, Take 1 tablet by [...] been discussed with the patient and/or their customer field representative. All questions answered and they agree to proceed. Juan Albright MD, PGY-6 Vascular & Interventional Radiology IR pager: [phone] NON-Urgent orthodontic technician weekends and after hours weekdays (5pm - 5am) IR pager: [phone] Urgent & emergent orthodontic technician weekends and after hours weekdays (5pm-7am) IR pager: [phone] documented in this encounterDayton Children's Hospital Work Phone: 1(259) 945-340501-20-2025 Note* Post-Procedure Note - Juan Albright MD [...] PACS Procedure performed by: Juan Albright MD Cadd Manager(s): Dr. Gaby Perez MD Estimated Blood Loss [...] Albright MD, PGY-6 Interventional Radiology IR pager: [phone] NON-Urgent orthodontic technician weekends and after hours weekdays (5pm - 5am) IR pager: [phone] Urgent & emergent orthodontic technician weekends and after hours weekdays (5pm-7am) IR pager: [phone] [facility] Work Phone: 1(105) 695-633201-20-2025 Note* Pre-Procedure Note - Juan Albright MD [...] by mouth once daily., Disp: , Rfl: othigznkck-gsezfqkvugbne-stkj 50-325-40 mg tablet, Take 1 tablet by [...] been discussed with the patient and/or their customer field representative. All questions answered and they agree to proceed. Juan Albright MD, PGY-6 Vascular & Interventional Radiology IR pager: [phone] NON-Urgent orthodontic technician weekends and after hours weekdays (5pm - 5am) IR pager: [phone] Urgent & emergent orthodontic technician weekends and after hours weekdays (5pm-7am) IR pager: [phone] [facility] Work Phone: [phone] 167-106501-14-2025 History of Present illness Narrative* Mary Schneider MD - 05/30/2024 11:45 AM EST HEAD AND NECK SURGERY FOLLOW UP [facility] Referring Provider: Dr. Ham HPI [...] lymph node Procedure Note: Diagnostic Flexible Laryngoscopy (30604) Indication: patient symptoms requiring evaluation of pharyngeal/laryngeal/hypopharyngeal [...] proceed with concurrent chemoradiation. [place] lives in [place], referrals to med onc and rad onc placed today to be setup locally at [facility]. I have also reached out to Dr Gray - He will need iris dx testing done prior to starting treatment - I will follow up the biopsy and call him with results - I will see him after treatment for cancer surveillance Mary Schneider MD 24 modifier used due to extensive discussion and coordination of cancer treatment documented in this encounterDayton Children's Hospital Work Phone: [phone]) 643-104312-26-2024 Hospital Discharge instructions* Discharge Instructions* Jessica Carreon [...] to your nearest ED. 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] Procedures Direct Laryngoscopy 78709 - [place] LARYNGOSCOPY W/WO TRACHEOSCOPY DX EXCEPT [facility] 11668 [facility] [place] [facility] GDNCE DX W/CELL WASHG SPX Esophagoscopy 70732 - [place] ESOPHAGOSCOPY FLEXIBLE TRANSORAL DIAGNOSTIC Surgeons Panel 1: * Mary Schneider - Primary Panel 2: * Mary Schneider - Primary Resident/Fellow/Other Cadd Manager: Surgeons and Role: Panel 1: * Riana Vela PA-C - Resident - Assisting Staff: Regional Economist: Jameel Camargo Person: Simon Scrub Person: Reggie Anesthesia Staff: Anesthesiologist: Gabo Munoz MD Checker And Packer: Candice Aceves MD; Delvis Santana MD Procedure [...] scrubbed for the entire procedure. 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] Procedures Direct Laryngoscopy 67560 - [place] LARYNGOSCOPY W/WO TRACHEOSCOPY DX EXCEPT Bronchoscopy 17241 - [place] [facility] INCL FLUOR GDNCE DX W/CELL WASHG SPX Esophagoscopy 63841 - [place] ESOPHAGOSCOPY FLEXIBLE TRANSORAL DIAGNOSTIC Surgeons Panel 1: * Mary Schneider - Primary Panel 2: * Mary Schneider - Primary Resident/Fellow/Other Cadd Manager: Surgeons and Role: Panel 1: * Riana Vela PA-C - Resident - Assisting Staff: Regional Economist: Jameel Fitzgeraldub Person: Simon Camargo Person: Reggie Anesthesia Staff: Anesthesiologist: Gabo Munoz MD Checker And Packer: Candice Aceves MD; Delvis Santana MD Procedure [...] lidocaine (Xylocaine) 2 % 70 mg phenylephrine (Imguel-Synephrine) injection 200 mcg propofol (Diprivan) injection 10 [...] entire procedure. Mary Schneider documented in this [facility] Work Phone: 1(605) 631-773412-26-2024 History and physical note* Jessica Carreon MD [...] Schneider MD at 05/11/2024 6:34 AM EST [facility] Work Phone: 1([phone]) 174-141112-26-2024 History and physical note* Jessica Carreon MD [...] 05/11/2024 6:34 AM EST documented in this encounterDayton Children's Hospital Work Phone: 1(802) 650-360512-24-2024 History of Present illness Narrative* Mary Ismael - 05/09/2024 10:02 AM EST Pharmacy Medication History Review Jeremie Bennett is a 83 y.o. male who is planned to be admitted for Malignant neoplasm of floor of mouth. Pharmacy called the patient prior to their scheduled procedure and reviewed the patient's jwvwl-su-ncszgzmuk medications for accuracy. 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 Patient states they are taking #1 tablet of metformin XR 500mg once daily. L.F. 02/24/24 #200/100d (prescription states #1BID) Patient states they are taking #1 tablet of rosuvastatin 10mg daily. L.F. 05/31/23 #90/90d. There is no recent fill history to confirm [facility] Please reach out via Secure Chat for questions documented in this encounterDayton Children's Hospital Work Phone: 1([phone]) 780-761012-10-2024 NoteUT Electrophysiology Consult Note [place] Cardiology [facility] Reason for visit: Device at [facility] [...] Heart valve disease Hyperlipidemia VT (ventricular tachycardia) ([facility]) PSH: Past Surgical History: Procedure Laterality Date ABLATION OF DYSRHYTHMIC FOCUS CARDIAC CATHETERIZATION INSERT / REPLACE / REMOVE PACEMAKER SH: Social Determinants of Health Tobacco Use: Medium Risk (05/11/2024) Received from [facility] Patient History Smoking Tobacco Use: Former Smokeless Tobacco Use: Former Passive Exposure: Not on file Alcohol Use: Not on file Financial Resource Strain: Not on file Food Insecurity: Not on file Transportation Needs: Not on file Physical Activity: Not on file Stress: Not on file Social Connections: Not on file Intimate Partner Violence: Unknown (07/08/2023) PR Safety & Environment Fear of Current or Ex-Partner: Not on file Emotionally Abused: Not on file Physically Abused: Not on file Sexually Abused: Not on file Physically or Sexually Abused: Not on file Depression: Not at risk (04/07/2024) Received from [facility] PHQ-2 Patient Health Questionnaire-2 Score: 0 [...] TSH , T3 TO (more content not included)...[facility]12-02-2024 NotePatient Education Nutrition BMI for Adults [...] for Disease Control and Prevention: cdc.gov ??? [place] Heart Association: heart.org ??? National Heart, Lung, and Blood Rickreall: nhlbi.nih.gov This information is not intended to replace advice given to you by your health care provider. Make sure you discuss any questions you have with your health care provider. Document Revised: 01/21/2023 Document Reviewed: 01/14/2023 [employer] Patient Education ? 2023 [employer].[facility] 04-07-2024 History of Present illness Narrative* Mary Schneider MD - 04/07/2024 10:45 AM EST HEAD AND NECK SURGERY CONSULT [facility] Referring Provider: Dr. Ham HPI [...] lymph node Procedure Note: Diagnostic Flexible Laryngoscopy (42714) Indication: patient symptoms requiring evaluation of pharyngeal/laryngeal/hypopharyngeal [...] for this, has a pacemaker and seeing adult literacy instructor soon. Will follow up biopsy and call him with the results Mary Schneider MD documented in this [facility] Work Phone: 1([phone]) 907-489211-13-2024 History of Present illness Narrative* Luc Ham MD - 03/29/2024 10:20 AM EST Subjective Patient ID: Jeremie Bennett is a 83 y.o. male who presents for Mouth Lesions (Follow up PET [facility] 03/27/24) Pet scan reviewed and there is [...] History of malignant neoplasm of prostate 04/03/2022 ANIAK (hard of hearing) 04/03/2022 Hypercholesterolemia (CMS/HCC) 04/03/2022 [...] Swollen lymph nodes 04/14/2023 Thoracic aortic ectasia ([facility]/HCC) 01/27/2024 Vitamin D deficiency 04/03/2022 Resolved Ambulatory Problems Diagnosis Date Noted Bloating 01/27/2024 Cellulitis of toe of left foot 01/27/2024 Cellulitis of toe of right foot 01/27/2024 Chest wall pain 04/03/2022 Gallstones 04/03/2022 COVID-19 11/10/2022 Entrapment of left ulnar nerve 01/27/2024 Entrapment of right ulnar nerve 01/27/2024 Fecal soiling 04/03/2022 Fecal urgency 04/14/2023 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) 01/27/2024 Lower abdominal pain 04/03/2022 Pain of [...] Diverticulitis GERD (gastroesophageal reflux disease) HTN (hypertension) ([facility]) Migraine headache ([facility]) Pain management Paronychia of great toe Personal history of other medical treatment 04/2018 Sinus tarsi syndrome of right foot Sleep apnea Toe pain, right Type 2 diabetes mellitus with diabetic neuropathy ([facility]) Past Surgical History: Procedure Laterality Date CARDIAC CATHETERIZATION 08/30/2019 CATARACT EXTRACTION Bilateral CERVICAL FUSION 2016 C3-C4-C5 CHOLECYSTECTOMY HERNIA REPAIR 2002 INSERT / REPLACE / REMOVE PACEMAKER 2015 pacemaker insertion OTHER SURGICAL HISTORY 2005 ablation OTHER SURGICAL HISTORY 2007 sphincterotomy [place] CHOLECYSTECTOMY 02/2020 Laparoscopic Cholecystectomy - [place] IMPLANT ARTIFICIAL SPHINCTER 2017 PROSTATE 2000 TONSILLECTOMY 1970 Allergies Allergen Reactions Niacin Itching and Unknown Wound Dressing Adhesive Unknown Current Outpatient Medications on File Prior to Visit Medication Sig Dispense Refill amLODIPine (Norvasc) 5 MG tablet Take 5 mg by mouth in the morning. aspirin 81 MG EC tablet Take 81 mg by mouth in the morning. butvchgszt-vzgbrplsrjwuf-gujndmsc 50-325-40 MG tablet Take 1 tablet by [...] completed for surveillance exams. documented in this encounterSt. 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 Author [...] PATIENT PRESENTS WITH AN IMPLANTABLE OR ATTACHED ROTARY PLANER SET UP OPERATOR: No CREATININE: No results found for: CREAT [...] safety can be found using this link: [email or web address] [email or web address]%20Nuclear%20Medicine%[email or web address] SIGNATURE: Kandi Rodriguez, RT(R) PATIENT NAME: Jeremie Bennett DATE: March 27, 2024 TIME: 10:14 AM PAGER/CONTACT #:[facility]10-23-2024 History of Present illness Narrative* Luc [...] GERD 01/27/2024 GERD with apnea 01/27/2024 Glaucoma (CMS/[facility]) 04/03/2022 Hemorrhoids 01/27/2024 History of colon polyps 01/27/2024 History of malignant neoplasm of prostate 04/03/2022 ANIAK (hard of hearing) 04/03/2022 Hypercholesterolemia ([facility]) 04/03/2022 Hyperlipidemia ([facility]) 04/03/2022 Insomnia 04/03/2022 Internal derangement of right knee 01/27/2024 Irregular bowel habits 04/14/2023 Lump on neck 04/14/2023 Migraines (CMS/[facility]) 04/03/2022 Aortic valve regurgitation 04/26/2019 Mitral valve regurgitation 04/26/2019 Neuropathy 04/03/2022 NPH (normal pressure hydrocephalus) ([facility]) 04/03/2022 Central sleep apnea 01/27/2024 Obstructive sleep [...] reflux disease) HTN (hypertension) (CMS/HCC) Migraine headache ([facility]) Pain management Paronychia of great toe Personal history of other medical treatment 04/2018 Sinus tarsi syndrome of right foot Sleep apnea Toe pain, right Type 2 diabetes mellitus with diabetic neuropathy ([facility]) Past Surgical History: Procedure Laterality Date CARDIAC CATHETERIZATION 08/30/2019 CATARACT EXTRACTION Bilateral CERVICAL FUSION 2016 C3-C4-C5 CHOLECYSTECTOMY HERNIA REPAIR 2002 INSERT / REPLACE / REMOVE PACEMAKER 2015 pacemaker insertion OTHER SURGICAL HISTORY 2005 ablation OTHER SURGICAL HISTORY 2007 sphincterotomy OK CHOLECYSTECTOMY 02/2020 Laparoscopic Cholecystectomy - [place] IMPLANT ARTIFICIAL SPHINCTER 2017 PROSTATE 2000 TONSILLECTOMY 1970 Allergies Allergen Reactions Niacin Itching and Unknown Wound Dressing Adhesive Unknown Current Outpatient Medications on File Prior to Visit Medication Sig Dispense Refill amLODIPine (Norvasc) 5 MG tablet Take 5 mg by mouth in the morning. aspirin 81 MG EC tablet Take 81 mg by mouth in the morning. wwhircsjeg-xfwcyhzhgnftg-nkvkrefj 50-325-40 MG tablet Take 1 tablet by [...] suspicious for the primary documented in this encounterSt. Joseph Medical [id number] Telephone encounter Note* Telephone Encounter - Antoinette Ham - 03/06/2024 11:18 AM EDT Pt is scheduled for 03/08/[address] Ham[address] [facility] [facility] CenterGdkahxnbbr30-09-0870 Miscellaneous Notes* Telephone Encounter - Antoinette Ham - 03/06/2024 11:18 AM EDT Pt is scheduled for 10/23/[address] Ham. * Telephone Encounter - Luc Ham MD - 03/06/2024 10:18 AM EDT Move up pt's appt documented in this encounterSt. Joseph Medical CenterSbvfptpqcn91-00-6958 Telephone encounter Note* Telephone Encounter - Luc Ham MD - 03/06/2024 10:18 AM EDT Move up pt's appt [facility] Work Phone: 1(216) 920-299610-02-2024 History of Present illness Narrative* Luc Ham [...] Colon polyp 01/27/2024 Type 2 diabetes mellitus ([facility]/HCC) 01/27/2024 Type 2 diabetes mellitus without complication, without long-term current use of insulin (CMS/[facility]) 04/14/2023 Diabetic autonomic neuropathy associated with type 2 diabetes mellitus (CMS/HCC) 04/14/2023 Diabetic peripheral neuropathy associated with type 2 diabetes mellitus (CMS/HCC) 01/27/2024 Diverticulosis 01/27/2024 Dysphagia 04/14/2023 Essential hypertension (CMS/HCC) 04/03/2022 Excessive daytime sleepiness 01/27/2024 FH: stomach cancer 04/14/2023 Chronic GERD 01/27/2024 GERD with apnea 01/27/2024 Glaucoma ([facility]/HCC) 04/03/2022 Hemorrhoids 01/27/2024 History of colon polyps 01/27/2024 History of malignant neoplasm of prostate 04/03/2022 ANIAK (hard of hearing) 04/03/2022 Hypercholesterolemia ([facility]) 04/03/2022 Hyperlipidemia ([facility]/HCC) 04/03/2022 Insomnia 04/03/2022 Internal derangement of right knee 01/27/2024 Irregular bowel habits 04/14/2023 Lump on neck 04/14/2023 Migraines ([facility]/HCC) 04/03/2022 Aortic valve regurgitation 04/26/2019 Mitral valve regurgitation 04/26/2019 Neuropathy 04/03/2022 NPH (normal pressure hydrocephalus) ([facility]) 04/03/2022 Central sleep apnea 01/27/2024 Obstructive sleep [...] Presence of cardiac pacemaker 03/14/2021 Prostate cancer (CMS/[facility]) 04/03/2022 Prostatitis 04/14/2023 Skin cancer 04/03/2022 Swollen lymph nodes 04/14/2023 Thoracic aortic ectasia ([facility]) 01/27/2024 Vitamin D deficiency 04/03/2022 Resolved Ambulatory Problems Diagnosis Date Noted Bloating 01/27/2024 Cellulitis of toe of left foot 01/27/2024 Cellulitis of toe of right foot 01/27/2024 Chest wall pain 04/03/2022 Gallstones 04/03/2022 COVID-19 11/10/2022 Entrapment of left ulnar nerve 01/27/2024 Entrapment of right ulnar nerve 01/27/2024 Fecal soiling 04/03/2022 Fecal urgency 04/14/2023 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[facility]) 01/27/2024 Lower abdominal pain 04/03/2022 Pain of [...] Diverticulitis GERD (gastroesophageal reflux disease) HTN (hypertension) ([facility]) Migraine headache ([facility]) Pain management Paronychia of great toe Personal history of other medical treatment 04/2018 Sinus tarsi syndrome of right foot Sleep apnea Toe pain, right Type 2 diabetes mellitus with diabetic neuropathy ([facility]) Past Surgical History: Procedure Laterality Date CARDIAC CATHETERIZATION 08/30/2019 CATARACT EXTRACTION Bilateral CERVICAL FUSION 2016 C3-C4-C5 CHOLECYSTECTOMY HERNIA REPAIR 2002 INSERT / REPLACE / REMOVE PACEMAKER 2015 pacemaker insertion OTHER SURGICAL HISTORY 2005 ablation OTHER SURGICAL HISTORY 2007 sphincterotomy [place] CHOLECYSTECTOMY 02/2020 Laparoscopic Cholecystectomy - [place] IMPLANT ARTIFICIAL SPHINCTER 2017 PROSTATE 2000 TONSILLECTOMY 1970 Allergies Allergen Reactions Niacin Itching and Unknown Wound Dressing Adhesive Unknown Current Outpatient Medications on File Prior to Visit Medication Sig Dispense Refill amLODIPine (Norvasc) 5 MG tablet Take 5 mg by mouth in the morning. aspirin 81 MG EC tablet Take 81 mg by mouth in the morning. shwpdqsdrq-rwciuizfgasdd-cseyzjwx 50-325-40 MG tablet Take 1 tablet by [...] a core needle bx documented in this encounterSt. 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 Robins in [place] -he is following up with them next [...] Oral, Daily aspirin 81 mg, Oral, Daily dfcyckmlbw-hrhpbuuredzyy-pyozxexv 50-325-40 MG tablet 1 tablet, Oral, Every [...] 2005 ablation OTHER SURGICAL HISTORY 2007 sphincterotomy [place] CHOLECYSTECTOMY 02/2020 Laparoscopic Cholecystectomy - [place] IMPLANT ARTIFICIAL SPHINCTER 2017 PROSTATE 2000 TONSILLECTOMY [...] 2+ 2+ Patellar 2+ 2+ Coordination Right: Rogytl-zp-vwun normal.Left: Gutlws-fj-kuuj normal. Gait Casual gait is normal including [...] up in 6 months documented in this encounterSt. Joseph Medical CenterYnghqdpvqh16-15-3473 Telephone encounter Note* Telephone Encounter - Carlitos Beckman - 02/07/2024 9:29 AM EDT Images from the original note were not included. IPMN surveillance. Review OSH images and advise please Chacho Dimmit MRI Cholanglogram Pancreatography 11/09/2023 [facility]09-23-2024 Miscellaneous Notes* Telephone Encounter - Carlitos Beckman [...] and it was completed in 12/2023 at [facility]. Our office will request results for Dr. Pringle's review. Follow up will be determined upon Dr. Pringle's review of results. documented in this encounterCleveland Clinic [facility]09-20-2024 Telephone encounter Note * Telephone Encounter - Carlitos Beckman - 02/04/2024 9:03 AM EDT Surveillance imaging completed at OSH for IPMN surveillance. [facility]09-18-2024 Telephone encounter Note* Telephone Encounter - Carlitos Beckman - 02/02/2024 8:57 AM EDT Call to patient to discuss plan of care. Surveillance imaging needed to evaluate pancreas cyst. Dx: IPMN Per Dr. Vaishali Pringle- recommended repeat MRI in 1 year Last imaging 02/17/2024 Orders placed: MRI Pancreas w/wo IVCON Patient's local GI ordered MRI and it was completed in 12/2023 at [facility]. Our office will request results for Dr. Pringle's review. Follow up will be determined upon Dr. Pringle's review of results. 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[facility]) 01/27/2024 BMI 29.0-29.9,adult 01/27/2024 Cardiac dysrhythmia 04/03/2022 Ventricular tachycardia ([facility]) 01/27/2024 Carpal tunnel syndrome, left 01/27/2024 Carpal tunnel syndrome, right 01/27/2024 Cervical lymphadenopathy 01/27/2024 Spondylosis of cervical spine 01/27/2024 Cervical vertebral fusion 04/03/2022 Spondylosis of lumbar spine 01/27/2024 Chronic venous insufficiency 01/27/2024 Colon polyp 01/27/2024 Type 2 diabetes mellitus ([facility]) 01/27/2024 Type 2 diabetes mellitus without complication, without long-term current use of insulin ([facility]) 04/14/2023 Diabetic autonomic neuropathy associated with type 2 diabetes mellitus ([facility]) 04/14/2023 Diabetic peripheral neuropathy associated with type 2 diabetes mellitus ([facility]) 01/27/2024 Diverticulosis 01/27/2024 Dysphagia 04/14/2023 Essential hypertension ([facility]) 04/03/2022 Excessive daytime sleepiness 01/27/2024 FH: stomach cancer 04/14/2023 Chronic GERD 01/27/2024 GERD with apnea 01/27/2024 Glaucoma ([facility]/HCC) 04/03/2022 Hemorrhoids 01/27/2024 History of colon polyps 01/27/2024 History of malignant neoplasm of prostate 04/03/2022 ANIAK (hard of hearing) 04/03/2022 Hypercholesterolemia ([facility]/HCC) 04/03/2022 Hyperlipidemia (CMS/HCC) 04/03/2022 Insomnia 04/03/2022 Internal [...] soiling 04/03/2022 Fecal urgency 04/14/2023 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) 01/27/2024 Lower abdominal pain 04/03/2022 Pain of upper abdomen 04/03/2022 Obesity with body mass index 30 or greater 04/03/2022 Onychomycosis 01/27/2024 Otitis media 04/14/2023 Pain in limb 01/27/2024 Peptic ulcer 04/03/2022 Right flank pain 04/03/2022 Unsteadiness on feet 01/27/2024 Mixed incontinence 01/27/2024 Past Medical History: Diagnosis Date At risk for falls BMI 32.0-32.9,adult Cataracts Cholelithiasis 2019 Diverticulitis GERD (gastroesophageal reflux disease) HTN (hypertension) ([facility]) Migraine headache ([facility]) Pain management Paronychia of great toe Personal history of other medical treatment 04/2018 Sinus tarsi syndrome of right foot Sleep apnea Toe pain, right Type 2 diabetes mellitus with diabetic neuropathy ([facility]) Past Surgical History: Procedure Laterality Date CARDIAC CATHETERIZATION 08/30/2019 CATARACT EXTRACTION Bilateral CERVICAL FUSION 2016 C3-C4-C5 HERNIA REPAIR 2002 INSERT / REPLACE / REMOVE PACEMAKER 2015 pacemaker insertion OTHER SURGICAL HISTORY 2005 ablation OTHER SURGICAL HISTORY 2007 sphincterotomy OK CHOLECYSTECTOMY 02/2020 Laparoscopic Cholecystectomy - [place] IMPLANT ARTIFICIAL SPHINCTER 2017 PROSTATE 2000 TONSILLECTOMY 1970 Allergies Allergen Reactions Niacin Itching and Unknown Wound Dressing Adhesive Unknown Current Outpatient Medications on File Prior to Visit Medication Sig Dispense Refill amLODIPine (Norvasc) 5 MG tablet Take 5 mg by mouth in the morning. aspirin 81 MG EC tablet Take 81 mg by mouth in the morning. pibqvkvjum-huinacgrdwvzq-kojtczpf 50-325-40 MG tablet Take 1 tablet by [...] actual location and nature documented in this encounterSt. Joseph Medical CenterNevwrntsgg19-14-5615 Hospital Discharge instructions Patient Education 09/17/2023 09:05:07 [...] grapefruit, pineapple, and nury. Vegetables Deep-fried vegetables. Finnish fries. Any vegetables prepared with added fat. [...] provider. Document Revised: 11/11/2020 Document Reviewed: 11/11/2020 [employer] Patient Education 2022 Jobyal. Follow Up Care 06/25/2023 12:06:59 With:Sammi CASON, NICOL Mccrary, [facility] Address: [address] [place] [address], [address] [place] [address]- [phone] When:3 months [facility] 01-15-2024 Evaluation note* Encounter [...] months. A prescription was sent to the [facility] for new supplies throughout the year. He [...] sleepiness, or poor response to treatment. . [facility] Other 01-09-2024 Hospital Discharge instructions Patient Education [...] grapefruit, pineapple, and nury. Vegetables Deep-fried vegetables. Finnish fries. Any vegetables prepared with added fat. [...] provider. Document Revised: 11/11/2020 Document Reviewed: 11/11/2020 [employer] Patient Education 2022 Jobyal. Follow Up Care 02/25/2023 14:06:51 With:Anjali Ruby CNP Address: When:1 month [facility] 11-20-2023 Miscellaneous Notes* Telephone Encounter - Lolly Dumont - 04/05/2023 9:44 AM EST Received records from [facility]. Reports for imaging listed below scanned. Images pushed through 09/27/2019 US Right Upper Quad 03/31/2020 CT ABD/PEL US Right Upper Quad [facility] MRI Abdomen 02/22/2023 Soft Tissue Head & Neck Received many misc. labs & ER reports Operative Note & pathology from Laparoscopic Cholecystectomy Patient seen 04/01, please review, thank you! documented in this encounterCleveland Clinic [facility]11-16-2023 Nurse Note* Debby Holland MA - 04/01/2023 1:13 PM EST What is the reason for your visit today? Consult for [facility] Who is your referring physician? Anjali Ruby CNP Are you having poor oral intake? NO Have you had unintentional weight loss of 15 lbs/7 Kg in the last 3-6 months? NO Bowels: off and on Wound: Temperature: No Drains: No documented in this encounterCleveland Clinic [facility]11-16-2023 History of Present illness Narrative* Vaishali Pringle [...] way of the shared medical record or [employer]. Jeremie Bennett is a 82 [...] Level: 4 - Moderate documented in this encounterCleveland Clinic [facility]11-16-2023 NoteHNO ID: [id number] Author: Vaishali Pringle MD Service: ? Author [...] on file., referred to me by Anjali Ruyb CNP for pancreatic cyst. Patient was worked [...] Pringle MD Medical De (more content not included)...[facility]10-25-2023 Hospital Discharge instructions Patient Education 03/10/2023 [...] Follow these instructions at home: Medicines Take jsqf-ith-depiqfn and prescription medicines only as told by [...] Watch your condition for any changes. Take cokm-mht-prkfpmx and prescription medicines only as told by [...] provider. Document Revised: 06/21/2020 Document Reviewed: 09/11/2019 [employer] Patient Education 2022 Jobyal. Follow Up Care 03/09/2023 09:58:32 With:Anjali Ruby CNP Address: When:1 to 2 weeks Comments:Following EGD. [facility] 10-12-2023 Hospital Discharge instructions [...] Follow these instructions at home: Medicines Take lpnc-skq-wwskzpr and prescription medicines only as told by your health care provider. If you were prescribed an antibiotic medicine, take it as told by your health care provider. Do notstop taking the antibiotic even if you start to feel better. Eating and drinking Make any diet changes as told by your health care provider. Work with a diet and document review specialist (dietitian) to create an eating plan [...] provider. Document Revised: 12/21/2020 Document Reviewed: 12/21/2020 [employer] Patient Education 2022 Jobyal. Follow Up Care 02/22/2023 16:17:47 With:Anjali Ruby CNP Address: When:3 months [facility] 09-15-2023 Evaluation note* Encounter [...] months. A prescription was sent to the [facility] for new supplies throughout the year. He [...] sleepiness, or poor response to treatment. . [facility] Other 08-29-2023 Hospital Discharge instructions Patient Education [...] including vitamins, herbs, eye drops, creams, and xptz-ugd-weoreje medicines. Any problems you or family members [...] provider tells you to take them. Taking vhxd-vmd-ismzpcf medicines, vitamins, herbs, and supplements. General instructions [...] provider. Document Revised: 04/27/2022 Document Reviewed: 12/24/2021 [employer] Patient Education 2022 Jobyal. Follow Up Care 12/28/2022 08:53:11 With:Anjali Ruby CNP Address: When:1 to 2 weeks Comments:Following EGD/Colonoscopy. [facility] 05-30-2023 Evaluation note* Encounter [...] sleepiness, or poor response to treatment. . [facility] Other 05-09-2023 Hospital Discharge instructions Patient Education [...] managed at home with rest, fluids, and ults-tzq-ckdnhwd medicines. Serious symptoms may be treated in [...] are not available, use alcohol-based hand field coordinator. Make sure that all people in your [...] managed at home with rest, fluids, and ljed-ckb-pvthvti medicines. This information is not intended to replace advice given to you by your health care provider. Make sure you discuss any questions you have with your health care provider. Document Revised: 04/23/2022 Document Reviewed: 04/23/2022 [employer] Patient Education 2022 Jobyal. Follow Up Care 09/22/2022 16:24:11 With:Demetrius Cooper Address: [address] [place] [address] Business (2) When:09/25/2022 18:12:09 [facility]05-09-2023 Evaluation note* Encounter Date Diagnosis Assessment [...] no improvement in 2 to 3 days. [facility] Other 04-11-2023 NoteCONSULTATION CONSULTATION DATE: 08/25/2022 TO: [...] our patients to inform us about any rlcf-ssy-mgijwtg medications or herbal remedies/nutritional supplements/alternative remedies. 2. [...] treatment options with their primary care provider.[id number] Evaluation note * Encounter Date Diagnosis Assessment [...] symptoms if he does not take his besn-hxo-aurwets hypnotic, sleep hygiene issues may also be [...] neuropathy pain Jul, Coronary artery disease involving [place] heart without angina pectoris, unspecified vessel or [...] he does have a defibrillator in place [facility] Other 03-09-2023 NoteCONSULTATION CONSULTATION DATE: 07/23/2022 HISTORY [...] gain authorization to hold the Plavix pre-procedure.[facility] [id number] NotePROCEDURE: XR ANKLE RT MIN 3 VIEWS COMPARISON: 08/22/2020 HISTORY: Pain of right ankle joint FINDINGS: BONES:No acute fracture or dislocation. Moderate enthesopathic spurring of the calcaneus. Degenerative changes with bone fragments along the inferior medial malleolus, stable. SOFT TISSUES:Negative. No visible soft tissue swelling. EFFUSION:None visible. OTHER: Negative. IMPRESSION: Stable degenerative changes Electronically authenticated by: ERWIN FALCON Date: 2022-07-22 10:37[facility] HospitalTtprdozx80-92-1656 NotePROCEDURE: XR FOOT RT MIN 3 VIEWS [...] authenticated by: CLARISSA GARCIA Date: 2022-06-16 15:25[facility] HospitalGmtglcqu69-38-1521 Hospital Discharge instructions Patient Education 05/26/2022 13:46:25 [...] [facility] [address] , [place] [address]- Business (1) When: Unknown Comments:Office will call to schedule follow up [facility]08-11-2022 NoteCONSULTATION PROCEDURE DATE: 12/25/2021 PRE AND [...] will be followed up in the clinic.[facility] 12-25-2021 NoteCONSULTATION CONSULTATION DATE: 12/25/2021 This [...] recently seen at an urgent care in [place] for left thumb pain and joint swelling. [...] in three months' time unless otherwise indicated.[facility] HospitalNnohefbp95-84-1381 Evaluation note* Encounter Date Diagnosis Assessment Notes [...] will help you get into a specialist. [facility] Other chief complaint+Reason for visit Narrative* Chief Complaint N54.2 Self Referral [facility] Work Phone: Chief complaint+Reason for visit Narrative* Chief Complaint N54.2 Self Referral [id number] [id number] m54.12 m54.2 [facility] Work Phone: [place] complaint+Reason for visit Narrative* Chief Complaint N54.2 Self Referral [id number] [id number] m54.12 m54.2 isidro, 31-90 [facility] Work Phone: Discharge summary Author Zeke [facility] Note Date/Time August 21, 2024 2:14 pm [facility] [address] [place] [address] Discharge Summary Signed Patient: Jeremie Bennett MR#: [id number] : 1940 Acct:[id number] Age/Sex: 83 / M Adm Date: 5 Loc: Room: [address] [place] [address]: Zeke Brennan MD Copies to: [...] Continuity of Care Document Health Concerns: A [facility] screening has identified you as FRAIL or [...] Four Ways to Beat the Frailty Risk [email or web address] eill-lo-iyuv-juv-mraofcg-[email or web address] Exam Physical Exam Vital Signs: Temp Pulse [...] % (Auto) 75.8, Lymph % (Auto) 9.0, [place] % (Auto) 13.6, Eos % (Auto) 1.0, Baso % (Auto) 0.6, Nucleat RBC Rel Count 0.1, Neut # (Auto) 4.7, Lymph # (Auto) 0.6 L, [place] # (Auto) 0.8, Eos # (Auto) 0.1, [...] Appearance Clear, Urine pH 5.5, Ur Specific [place] 1.017, Urine Protein Negative, Urine Glucose (UA) [...] % (Auto) 77.0, Lymph % (Auto) 10.5, [place] % (Auto) 11.3, Eos % (Auto) 0.7, Baso % (Auto) 0.5, Nucleat RBC Rel Count 0.2, Neut # (Auto) 5.7, Lymph # (Auto) 0.8 L, [place] # (Auto) 0.8, Eos # (Auto) 0.1, [...] signed by Zeke Brennan MD> 08/21/24 1414 [facility] Work Phone: Evaluation + Plan note No data available for this section [facility] Future Appointments Appointment Date:11/23/2022 09:00:00 AM Scheduled Provider:Demetrius Cooper MD Location[facility]ments Appointment Date:12/15/2022 12:00:00 PM Scheduled Provider:Anjali Ruby CNP [facility] New Patient Appointment Date:05/31/2023 09:00:00 AM Scheduled Provider:Demetrius Cooper MD Location:[facility] Appointment Type: Open Appointment Date:11/08/2023 01:00:00 PM Scheduled Provider: Location:[facility] Appointment Type: Medicare Wellness Subsequent Future Scheduled Tests Laboratory* HgbA1c 11/23/22 * CBC w/ Auto Diff 11/23/22 * Comprehensive Metabolic Panel 11/23/22 * Lipid Panel 11/23/22 [facility] Future Appointments Appointment Date:05/31/2023 09:00:00 AM Scheduled Provider:Demetrius Cooper MD Location:[facility] Appointment Type: Open Appointment Date:11/08/2023 01:00:00 PM Scheduled Provider: Location:[facility] Appointment Type: Medicare Wellness Subsequent Future Scheduled Tests Laboratory* HgbA1c 11/23/22 * CBC w/ Auto Diff 11/23/22 * Comprehensive Metabolic Panel 11/23/22 * Lipid Panel 11/23/22 [facility] Future Appointments Appointment Date:05/31/2023 09:00:00 AM Scheduled Provider:Demetrius Cooper MD Location:[facility] Appointment Type: Open Appointment Date:11/08/2023 01:00:00 PM Scheduled Provider: Location:[facility] Appointment Type: Medicare Wellness Subsequent Future Scheduled Tests Laboratory* HgbA1c 11/23/22 * CBC w/ Auto Diff 11/23/22 * Comprehensive Metabolic Panel 11/23/22 * Lipid Panel 11/23/22 Radiology* CT Abdomen w/ Contrast 01/12/23 [facility] Evaluation + Plan note Future Appointments Appointment Date:05/03/2023 01:40:00 PM Scheduled Provider:Anjali Ruby CNP [facility] App[facility]ment Type:[facility] Follow Up Appointment Date:05/31/2023 09:00:00 AM Scheduled Provider:Demetrius Cooper MD Location:[facility] Appointment Type: Open Appointment Date:11/08/2023 01:00:00 PM Scheduled Provider: Location:[facility] Appointment Type:FM Medicare Wellness Subsequent Future Scheduled Tests Laboratory* HgbA1c 11/23/22 * CBC w/ Auto Diff 11/23/22 * Comprehensive Metabolic Panel 11/23/22 * Lipid Panel 11/23/22 [facility] Evaluation + Plan note Future Appointments Appointment Date:05/03/2023 01:40:00 PM Scheduled Provider:Anjali Ruby CNP Location:[facility] Appointment Type:[facility] Follow Up Appointment Date:05/31/2023 10:00:00 AM Scheduled Provider:Demetrius Cooper MD Location:[facility] Appointment Type: Open Appointment Date:11/08/2023 01:00:00 PM Scheduled Provider: Location:[facility] Appointment Type:FM Medicare Wellness Subsequent Future Scheduled Tests Laboratory* HgbA1c 11/23/22 * CBC w/ Auto Diff 11/23/22 * Comprehensive Metabolic Panel 11/23/22 * Lipid Panel 11/23/22 [facility] Evaluation + Plan note Future Appointments Appointment Date:05/03/2023 01:40:00 PM Scheduled Provider:Anjali Ruby CNP Location:[facility] Appointment Type:[facility] Follow Up Appointment Date:05/31/2023 10:00:00 AM Scheduled Provider:Demetrius Cooper MD Location:[facility] Appointment Type: Open Appointment Date:11/08/2023 01:00:00 PM Scheduled Provider: Location:[facility] Appointment Type:FM Medicare Wellness Subsequent Diagnostic Tests Pending * O & P Exam, Routine 03/10/23 * Giardia lamblia, Direct Detection EIA 03/10/23 Future Scheduled Tests Laboratory* HgbA1c 11/23/22 * CBC w/ Auto Diff 11/23/22 * Comprehensive Metabolic Panel 11/23/22 * Lipid Panel 11/23/22 [facility] Future Appointments Appointment Date:05/31/2023 10:00:00 AM Scheduled Provider:Demetrius Cooper MD Location:[facility] Appointment Type: Open Appointment Date:06/25/2023 01:20:00 PM Scheduled Provider:Anjali Ruby CNP Location:[facility] Appointment Type:[facility] Follow Up Appointment Date:11/08/2023 01:00:00 PM Scheduled Provider: Location:[facility] Appointment Type: Medicare Wellness Subsequent Future Scheduled Tests Laboratory* HgbA1c 11/23/22 * CBC w/ Auto Diff 11/23/22 * Comprehensive Metabolic Panel 11/23/22 * Lipid Panel 11/23/22 [facility] evaluation + Plan note Future Appointments Appointment Date:10/21/2023 03:00:00 PM Scheduled Provider:Inez Henderson MD Location:[facility] Appointment Type:[facility] Follow Up Appointment Date:11/08/2023 01:00:00 PM [...] Metabolic Panel 11/23/22 * Lipid Panel 11/23/22 [facility] Evaluation + Plan note Future Appointments Appointment Date:10/21/2023 03:00:00 PM Scheduled Provider:Inez Henderson MD Location:[facility] Appointment Type:[facility] Follow Up Appointment Date:11/08/2023 01:00:00 PM Scheduled Provider: Location:[facility] Appointment Type: Medicare Wellness Subsequent Appointment Date:11/29/2023 10:15:00 AM Scheduled Provider:Demetrius Copoer MD Location:[facility] Appointment Type: Open Diagnostic Tests Pending * Celiac Disease Comprehensive 5/3/24 Future Scheduled Tests Laboratory* U Protein/Creat Ratio 05/31/23 * HgbA1c 11/23/22 * HgbA1c 05/31/23 * Microalbumin Level Urine 05/31/23 * CBC w/ Auto Diff 11/23/22 * Comprehensive Metabolic Panel 11/23/22 * Lipid Panel 11/23/22 [facility] Future Appointments Appointment Date:11/08/2023 01:00:00 PM Scheduled Provider: Location:[facility] Appointment Type: Medicare Wellness Subsequent Appointment Date:11/29/2023 10:15:00 AM Scheduled Provider:Demetrius Cooper MD Location:[facility] Appointment Type: Open Appointment Date:03/23/2024 02:45:00 PM Scheduled Provider:Inez Henderson MD [place] App[facility]ment Type:[facility] Follow Up Future Scheduled Tests Laboratory* U Protein/Creat Ratio 05/31/23 * HgbA1c 11/23/22 * HgbA1c 05/31/23 * Microalbumin Level Urine 05/31/23 * CBC w/ Auto Diff 11/23/22 * Comprehensive Metabolic Panel 11/23/22 * Lipid Panel 11/23/22 Radiology* MRI Cholangiogram Pancreatography (mrcp) 10/21/23 [facility] Evaluation + Plan note Future Appointments Appointment Date:11/29/2023 10:15:00 AM Scheduled Provider:Demetrius Cooper MD Location:[facility] Appointment Type: Open Appointment Date:03/23/2024 02:45:00 PM Scheduled Provider:Inez Henderson MD Location[place] Appointment Type:[facility] Follow Up Appointment Date:11/06/2024 02:30:00 PM [...] Lipid Panel 11/08/23 * Lipid Panel 11/23/22 [facility] Future Appointments Appointment [...] 11/08/23 Radiology* MRI Cholangiogram Pancreatography (mrcp) 03/23/24 [facility] Evaluation + Plan note [...] Level Urine 05/31/23 * Lipid Panel 11/08/23 [facility] Evaluation + Plan note Future Appointments [...] Level Urine 11/24/23 * Lipid Panel 11/08/23 [facility] Evaluation noteNo Assessments Information Available [facility] note[facility] assessment information available [facility] Work Phone: Evaluation note* Diagnosis 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 [facility] [place] [facility] Diagnosis 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 [facility] [place]* Diagnosis Onset Date Resolution Status Viral URI with cough noneact rosa Impacted cerumen, bilateral noneactive Central sleep apnea acute DM (diabetes mellitus) acute Essential hypertension acute Obstructive sleep apnea acut e [facility] Work Phone: Evaluation note* Diagnosis 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 [facility] [place]* Diagnosis Migraine without aura and without status migrainosus, not intractable (CMS/HCC)- Primary Vertigo Dizziness and giddiness Lumbar radiculopathy Thoracic or lumbosacral neuritis or radiculitis, unspecified Neck pain Cervicalgia Degenerative disc disease, cervical Polyneuropathy Unspecified hereditary and idiopathic peripheral neuropathy documented in this encounter [facility] Healthcare[facility] note* Diagnosis LAD (lymphadenopathy) of right cervical region- Primary documented in this encounter [facility] Healthcare[facility] note* Diagnosis 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 [facility] [place]* Diagnosis Oral ulcer- Primary Other and unspecified diseases of the oral soft tissues 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) documented in this encounter [facility] HealthcareEvaluation note* Diagnosis 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 Ulcer of gingiva documented in this encounter [facility] HealthcareEvaluation note* Diagnosis Malignant neoplasm metastatic to [...] mouth, part unspecified documented in this encounter [facility] Work Phone: Evaluation note* Diagnosis Parotid [...] stated as uncontrolled documented in this encounter [facility] Work Phone: Evaluation note* 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 head, face, and neck documented in this encounter [facility] Work Phone: Evaluation note* Diagnosis Enlarged submental lymph node documented in this encounter [facility] Work Phone: Evaluation note* Diagnosis Poor [...] Dysphagia, unspecified type documented in this encounter [facility] Work Phone: Evaluation note* Diagnosis Esophageal [...] idiopathic peripheral neuropathy documented in this encounter [facility] HealthcareEvaluation note* Diagnosis Esophageal dysphagia- Primary Dysphagia, pharyngoesophageal phase 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, unspecified site documented in this encounter [facility] HealthcareEvaluation note* Diagnosis Personal history of malignant neoplasm of head and neck- Primary Personal history of malignant neoplasm of other site G tube feedings (Multi) At risk for malnutrition documented in this encounter [facility] Work Phone: Evaluation note* Diagnosis Esophageal dysphagia- Primary Dysphagia, pharyngoesophageal phase Carcinoma of oropharynx (HCC) Malignant neoplasm of oropharynx, unspecified site documented in this encounter [facility] HealthcareEvaluation note* Diagnosis Esophageal dysphagia- Primary Dysphagia, pharyngoesophageal phase documented in this encounter [facility] HealthcareHistory general Narrative - Reported* Type Description Date Medical History DM (diabetes mellitus) Medical History HTN (hypertension) Medical History Hypercholesteremia Medical History Vitamin D deficiency, unspecifie d Medical History CAD (coronary artery disease) Surgical History Neck Surgery Surgical History cholecystectomy Surgical History cardiac stent Surgical History prostatectomy Surgical History hernia Hospitalization History see above [facility] Other History general Narrative - Reported* Type [...] Surgical History hernia Hospitalization History see above [facility] Other History of Present illness Narrative* Veena [...] 2005 ablation OTHER SURGICAL HISTORY 2007 sphincterotomy [place] CHOLECYSTECTOMY 02/2020 Laparoscopic Cholecystectomy - [place] IMPLANT ARTIFICIAL SPHINCTER 2017 PROSTATE 2000 TONSILLECTOMY 1970 US GUIDED BIOPSY LYMPH NODE SUPERFICIAL 06/05/2024 US GUIDED BIOPSY LYMPH NODE SUPERFICIAL 06/05/2024 FAMILY HISTORY Family History Problem Relation Name Age of Onset Hypertension Mother Estee Bennett Heart disease Mother Estee Bennett Stroke Mother Estee Bennett Asthma Mother Estee Bennett Kidney disease Mother Estee Bennett Migraines Mother Estee Bennett Other (prostate problem) Father Stacey Benentt Cancer Father Stacey Bennett Heart disease Maternal [...] prior to the visit. [facility] instructions No data available for this section [facility] instructionsAmbulatory Orders* Referral to Palliative Medicine Time Frame: 06/14/24, Location: None Selected * RISE Order Location: None Selected [facility] Work Phone: Progress note No data available for this section [facility] Author Talib Faustin [facility] Note Date/Time June 14, 2024 1 1:06am [facility] [place] [address] Cancer Center Note Signed Patient: Jeremie Bennett MR#: [id number] : 1940 Acct:[id number] Age/Sex: 83 / M Type: REG AMB [...] by IHC was equivocal. 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 He is [...] positive squamous cell carcinoma. Tumor board at [facility] [place] [facility] and the recommended concurrent chemoradiation. Past [...] with concurrent chemoradiation. Since he lives in [place] he was referred by Dr. Mary Schneider from ENT at [facility] to our medical oncology and radiation oncology at [facility]. He is referred to medical oncology for [...] PO DAILY aspirin 81 mg PO DAILY ohbkhka-qsantcdywuepz-fvfwqqzr 250-250-65 mg (Excedrin Migraine) 1 tab PO [...] card, magnet, caregiver resource list, [facility] nutrition guide, and cancer rehabilitation pamphlet provided [...] to have pace maker replaced 07/10/2024 at [facility]. [facility] Medical History Medical History (Updated 06/14/24 [...] signed by Talib Faustin MD> 06/14/24 1106 [facility] Work Phone: Progress note Author Talib Faustin [facility] Note Date/Time July 12, 2024 9:20am [facility] [place] [address] Cancer Center Note Signed Patient: Jeremie Bennett MR#: [id number] : 1940 Acct:[id number] Age/Sex: 83 / M Type: REG AMB [...] by IHC was equivocal. As per the [facility] tumor board recommendation is either doing extensive [...] his week 1 of cisplatin. Labs at [facility] [place] 07/03[place]24 revealed hgb 13.3, cr is 1.0. 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 He is [...] positive squamous cell carcinoma. Tumor board at [facility] [place] [facility] and the recommended concurrent chemoradiation. Past [...] with concurrent chemoradiation. Since he lives in [place] he was referred by Dr. Mary Schneider from ENT at [facility] to our medical oncology and radiation oncology at [facility]. He is referred to medical oncology for [...] his week 1 of cisplatin. Labs [place] [facility] [place] 07/03[place]24 revealed hgb 13.3, cr is 1.0. 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 Rest of 14 point systems were reviewed [...] PO QAM aspirin 81 mg PO DAILY kjxpacr-bqcvlumojrdhq-eppvzhdj 250-250-65 mg (Excedrin Migraine) 1 tab PO [...] voiced at time of intake. [facility] Medical History Medical History (Updated 07/06/24 [...] Heart disease [facility] of stroke [facility]: Diagnosed with Stroke Hypertension Emphysema lung ESRD (end stage renal disease) Sister [facility] Problem: Diagnosed with Cancer Lymphoma Social [...] signed by Talib Faustin MD> 07/12/24 0920 [facility] Work Phone: Progress note Author Zeke Brennan [facility] Note Date/Time August 21, 2024 2:14 pm [facility] [address] [place] [address] Hospitalist Progress Note Signed Patient: Jeremie Bennett MR#: [id number] : 1940 Acct:[id number] Age/Sex: 83 / M Adm Date: 5 Loc: Room: 2P6928-8 Type: ADM IN Attending Dr: Zeke Brennan [...] of care and confirmed it with the resident/student/WORK FORCE ADVISOR. This patient presented to the emergency department [...] spray 08/21/24 09:00 08/21/24 09:02 Fluticasone Propionate Campus 120 Campus/16 Gm Bottle INTRANASAL 08/21/25 08:59 2 spray [...] signed by DO KASSY Lambert> 08/21/24 1152 [facility] Work Phone: Progress note Author Talib Faustin [facility] Note Date/Time November 23, 2024 10:2 6am [facility] [place] [address] Cancer Center Note Signed Patient: Jeremie Bennett MR#: [id number] : 1940 Acct:[id number] Age/Sex: 84 / M Type: REG AMB [...] by IHC was equivocal. As per the [facility] tumor board recommendation is either doing extensive [...] his week 1 of cisplatin. Labs [place] [facility] [place] 07[place]24 revealed hgb 13.3, cr is 1.0. 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 He is [...] positive squamous cell carcinoma. Tumor board at [facility] [place] [facility] and the recommended concurrent chemoradiation. Past [...] with concurrent chemoradiation. Since he lives in [place] he was referred by Dr. Mary Schneider from ENT at [facility] to our medical oncology and radiation oncology at [facility]. He is referred to medical oncology for [...] his week 1 of cisplatin. Labs at [facility] [place] 07/03/24 revealed hgb 13.3, cr is 1.0. 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 07/20/2024 he came in complaining of increase [...] voiced at time of intake. [facility] Medical History Medical History Squamous cell [...] signed by Talib Faustin MD> 11/23/24 1026 [facility] Work Phone: Progress note Author Becky Crouch [facility] Note Date/Time December 26, 2024 1: 25pm [facility] [place] [address] Cancer Center Note Signed Patient: Jeremie Bennett MR#: [id number] : 1940 Acct:[id number] Age/Sex: 84 / M Type: DEP AMB [...] G-tube was placed by surgery here at [facility] and patient is hopeful to have this [...] (Unknown, Verified 11/23/24 10:00) hives [facility] Medical History Medical History (Updated 11/23/24 [...] Glaucoma Mother Heart disease [facility]: Diagnosed with Stroke Hypertension Emphysema lung ESRD (end stage renal disease) Sister 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] Procedures OK GLOSSECTOMY HEMIGLOSSECTOMY OK LARYNGOSCOPY W/WO TRACHEOSCOPY DX EXCEPT OK BRNCHSC INCL FLUOR GDNCE DX W/CELL WASHG SPX OK ESOPHAGOSCOPY FLEXIBLE TRANSORAL DIAGNOSTIC OK TONSILLECTOMY PRIMARY/SECONDARY AGE 12/> GLOSSECTOMY, ROBOT-ASSISTED, ORAL APPROACH Direct Laryngoscopy Bronchoscopy Esophag[place] [address] [place] [address] Phone: tel: fax: [facility] [place] [address] [place] [address] fax: Referral ID Status Reason Start Date Expiration Date Visits Re quested Visits Authorized [id number] 1 1 [facility] Work Phone: Rewtds for visit Narrative* Imaging (Routine) - Authorized Specialty Diagnoses / Procedures Referred By Bakari rosado Referred To Contact Radiology Diagnoses Enlarged submental lymph node Procedures US guided biopsy lymph node superficial IR biopsy [place] [address] [place] [address] Phone: tel: fax: Referral ID Status Reason Start Date Expiration Date Visits Requested Visits Authorized [id number] Authorized Perform Procedure 4 05/12/2025 1 1 [facility] Work Phone: Summary Purpose Family History [...] Documents on File Type Date Recorded 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 2024 9:25am Tongue cancer June 14, 2024 9 :25am Squamous cell carcinoma of oropharynx [facility] 2024 10:28am Chief Complaint Admit Date NEW-Mal [...] Admit Date Squamous cell carcinoma of oropharynx [facility] 2024 9:25am Tongue cancer June 14, 2024 9 :25am Squamous cell carcinoma of oropharynx [facility] 2024 10:28am Encounter for palliative care June 182024 8:00am Squamous cell carcinoma of oropharynx [facility] 2024 8:00am Chief Complaint Admit Date NEW-Mal [...] Admit Date Squamous cell carcinoma of oropharynx [facility] 2024 9:25am Tongue cancer June 14, 2024 9 :25am Squamous cell carcinoma of oropharynx [facility] 2024 10:28am Encounter for palliative care June 182024 8:00am Squamous cell carcinoma of oropharynx [facility] 2024 8:00am Cancer associated pain July 12 7:36am Nausea July 12, 2024 7:36am Squamous cell carcinoma of oropharynx [facility] 2024 7:36am Squamous cell carcinoma of oropharynx [facility] 2024 8:29am Tongue cancer July 12, 2024 [...] Admit Date Squamous cell carcinoma of oropharynx [facility] 2024 8:13am Cancer associated pain July 26, 2024 8:22am Nausea July 26, 2024 8:2 2am Squamous cell carcinoma of oropharynx [facility] 2024 8:22am Chief Complaint Admit Date NEW-Mal [...] Admit Date Squamous cell carcinoma of oropharynx [facility] 2024 8:13am Cancer associated pain July 26, 2024 8:22am Nausea July 26, 2024 8:2 2am Squamous cell carcinoma of oropharynx [facility] 2024 8:22am Cancer associated pain August 02, 2024 7:29am Constipation August 02, 2024 7:2 9am Squamous cell carcinoma of oropharynx [facility] 2024 7:29am Thrush, oral August 02, 2024 [...] Admit Date Squamous cell carcinoma of oropharynx [facility] 2024 8:13am Cancer associated pain July 26, 2024 8:22am Nausea July 26, 2024 8:2 2am Squamous cell carcinoma of oropharynx [facility] 2024 8:22am Cancer associated pain August 02, 2024 7:29am Constipation August 02, 2024 7:2 9am Squamous cell carcinoma of oropharynx [facility] 2024 7:29am Thrush, oral August 02, 2024 7:2 9am Cancer associated pain August 09, 2024 7:51am Constipation August 09, 2024 7:5 1am Nausea August 09, 2024 7:5 1am Squamous cell carcinoma of oropharynx [facility] 2024 7:51am Squamous cell carcinoma of oropharynx [facility] 2024 9:23am Chief Complaint Admit Date NEW-Mal [...] Admit Date Squamous cell carcinoma of oropharynx [facility] 2024 8:13am Cancer associated pain July 26, 2024 8:22am Nausea July 26, 2024 8:2 2am Squamous cell carcinoma of oropharynx [facility] 2024 8:22am Cancer associated pain August 02, 2024 7:29am Constipation August 02, 2024 7:2 9am Squamous cell carcinoma of oropharynx [facility] 2024 7:29am Thrush, oral August 02, 2024 7:2 9am Cancer associated pain August 09, 2024 7:51am Constipation August 09, 2024 7:5 1am Nausea August 09, 2024 7:5 1am Squamous cell carcinoma of oropharynx [facility] 2024 7:51am Squamous cell carcinoma of oropharynx [facility] 2024 9:23am Cancer associated pain August 16, 2024 7 :59am Constipation August 16, 2024 7:59 am Nausea August 16, 2024 7:59 am Squamous cell carcinoma of oropharynx [facility] 2024 7:59am Chief Complaint Admit Date [...] Admit Date Squamous cell carcinoma of oropharynx [facility] 2024 8:13am Cancer associated pain July 26, 2024 8:22am Nausea July 26, 2024 8:2 2am Squamous cell carcinoma of oropharynx [facility] 2024 8:22am Cancer associated pain August 02, 2024 7:29am Constipation August 02, 2024 7:2 9am Squamous cell carcinoma of oropharynx [facility] 2024 7:29am Thrush, oral August 02, 2024 7:2 9am Cancer associated pain August 09, 2024 7:51am Constipation August 09, 2024 7:5 1am Nausea August 09, 2024 7:5 1am Squamous cell carcinoma of oropharynx [facility] 2024 7:51am Squamous cell carcinoma of oropharynx [facility] 2024 9:23am Cancer associated pain August 16, 2024 7 :59am Constipation August 16, 2024 7:59 am Nausea August 16, 2024 7:59 am Squamous cell carcinoma of oropharynx [facility] 2024 7:59am Fever August 20, 2024 [...] Admit Date Squamous cell carcinoma of oropharynx [facility] 2024 8:13am Cancer associated pain July 26, 2024 8:22am Nausea July 26, 2024 8:2 2am Squamous cell carcinoma of oropharynx [facility] 2024 8:22am Cancer associated pain August 02, 2024 7:29am Constipation August 02, 2024 7:2 9am Squamous cell carcinoma of oropharynx [facility] 2024 7:29am Thrush, oral August 02, 2024 7:2 9am Cancer associated pain August 09, 2024 7:51am Constipation August 09, 2024 7:5 1am Nausea August 09, 2024 7:5 1am Squamous cell carcinoma of oropharynx [facility] 2024 7:51am Squamous cell carcinoma of oropharynx [facility] 2024 9:23am Cancer associated pain August 16, [...] Admit Date Squamous cell carcinoma of oropharynx [facility] 2024 8:13am Cancer associated pain July 26, 2024 8:22am Nausea July 26, 2024 8:2 2am Squamous cell carcinoma of oropharynx [facility] 2024 8:22am Cancer associated pain August 02, 2024 7:29am Constipation August 02, 2024 7:2 9am Squamous cell carcinoma of oropharynx [facility] 2024 7:29am Thrush, oral August 02, 2024 7:2 9am Cancer associated pain August 09, 2024 7:51am Constipation August 09, 2024 7:5 1am Nausea August 09, 2024 7:5 1am Squamous cell carcinoma of oropharynx [facility] 2024 7:51am Squamous cell carcinoma of oropharynx [facility] 2024 9:23am Cancer associated pain August 16, [...] Admit Date Squamous cell carcinoma of oropharynx [facility] 2024 8:13am Cancer associated pain July 26, 2024 8:22am Nausea July 26, 2024 8:2 2am Squamous cell carcinoma of oropharynx [facility] 2024 8:22am Cancer associated pain August 02, 2024 7:29am Constipation August 02, 2024 7:2 9am Squamous cell carcinoma of oropharynx [facility] 2024 7:29am Thrush, oral August 02, 2024 7:2 9am Cancer associated pain August 09, 2024 7:51am Constipation August 09, 2024 7:5 1am Nausea August 09, 2024 7:5 1am Squamous cell carcinoma of oropharynx [facility] 2024 7:51am Squamous cell carcinoma of oropharynx [facility] 2024 9:23am Cancer associated pain August 16, [...] 2: 36pm Squamous cell carcinoma of oropharynx Md [facility] 2024 2:36pm Thrush, oral September 26, [...] [place] [address] [place] [address] Referral ID Status Reason Start Date Expiration Date V isits Requested Visits Authorized [id number] Pending Review 02/16/2024 08/14/2024 1 1 Specialty Diagnoses / Procedures Referred By Bakari rosado Referred To Contact MR IMAGING Diagnoses IPMN (intraductal papillary mucinous neoplasm) Procedures MRI 3D POST PROCESSING 3D RENDERING W/INTERP&POSTPROC [place] [address] [place] [id number] Mr Imaging [facility] Referral ID Status Reason Start Date Expiration Date Visits Requested Visits Authorized [id number] New Request Auto-Generat ed Referral 02/01/2024 03/02/2025 1 1 Specialty Diagnoses / Procedures Referred By Bakari rosado Referred To Contact MR IMAGING Diagnoses IPMN (intraductal papillary mucinous neoplasm) Procedures MRI PANC/TRISH WO/W IVCON MRI ABDOMEN W/O & W/[place] [address] [address] Mr Imaging [facility] Referral ID Status Reason Start Date Expiration Date Visits Requested Visits Authorized [id number] New Request Auto-Generat ed Referral 02/01/2024 03/02/2025 [...] section and content) DATE CREATED AUTHOR 02/08/2020 [facility] DATE CREATED AUTHOR AUTHOR'S ORGANIZ ATION 09/30/2022 [facility] DATE CREATED AUTHOR AUTHOR'S ORGANIZ ATION 02/04/2023 [facility] DATE CREATED AUTHOR AUTHOR'S ORGANIZ ATION 04/01/2024 [facility] DATE CREATED AUTHOR AUTHOR'S ORGANIZ ATION 04/19/2024 [facility] DATE CREATED AUTHOR AUTHOR'S ORGANIZ ATION 07/05/2024 [facility] DATE CREATED AUTHOR AUTHOR'S ORGANIZ ATION 07/21/2024 [facility] DATE CREATED AUTHOR AUTHOR'S ORGANIZ ATION 07/22/2024 [facility] DATE CREATED AUTHOR AUTHOR'S ORGANIZ ATION 09/03/2024 [facility] DATE CREATED AUTHOR AUTHOR'S ORGANIZ ATION 10/15/2024 [facility] DATE CREATED AUTHOR AUTHOR'S ORGANIZ ATION 10/31/2024 [facility] DATE CREATED AUTHOR AUTHOR'S ORGANIZ ATION 12/01/2024 [facility] DATE CREATED AUTHOR AUTHOR'S ORGANIZ ATION 12/15/2024 [facility] DATE CREATED AUTHOR AUTHOR'S ORGANIZ ATION 12/27/2024 [facility] DATE CREATED AUTHOR AUTHOR'S ORGANIZ ATION 01/17/2025 [facility] DATE CREATED AUTHOR AUTHOR'S ORGANIZ ATION 01/20/2025 [facility] d[facility] Special[facility] EPIC REASON FOR VISIT (unrecogniz ed section and content) Reason Comments Consult PE Reason Comments Received Outside Medical Records Reason Comments Back Pain Dizziness Neck Pain Reason Comments Parotid mass Parotid mass Reason Comments MRI 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 Specialty Diagnoses / Procedures Referred By Contac t Referred To Contact General Surgery Diagnoses Malignant neoplasm of oropharynx, unspecified (CMS/HCC) Procedures [facility] [employer] Dennis Gray MD [address] [place] [address] Phone: tel: fax: Stacey Hinojosa, DO [address] [address] Phone: tel: fax: Referral ID Status Reason Start Date Expiration Date Visits Re quested Visits Authorized [id number] Closed 06/14/2024 12/11/2024 1 1 Reason Comments Follow-up Reason Comments urgent need for gastrostomy tube Reason Comments 1st pow gastrostomy tube placement Reason Comments Gastrostomy tube removal Specialty Diagnoses / Procedures Referred By Contac t Referred To Contact General Surgery Diagnoses Malignant neoplasm of oropharynx, unspecified (HCC) Procedures [facility] [employer] [facility] Gelacio Paredes MD Phone: tel: fax: Veena Adkins, DO [address] [address] Phone: tel: fax: Referral ID Status Reason Start Date Expiration Date Visits Re quested Visits Authorized [id number] Closed 12/26/2024 06/24/2025 1 1 Reason Comments [...] Provider Active Start: August 14, 2024 Mary Schneidre MD Referring Provider Active S tart: August [...] Active Anjali Ruby NP-C Attending Provider Active General Neurologist Relationship Specialty Start Date End Date Anjali Ruby CNP [address] [place] [address] Referring Family Medicine 03/03/23 General Neurologist Relationship Specialty Start Date End Date Anjali Ruby CNP [address] [place] [address] Referring Family Medicine 03/03/23 Team Status: Inactive [...] September 02, 2023 End: September 02, 2023 General Neurologist Relationship Specialty Start Date End Date Anjali Ruby CNP [address] [place] [address] Referring Family Medicine 03/03/23 General Neurologist Relationship Specialty Start Date End Date Demetrius Cooper MD [address] [place] [address] PCP - General Family Medicine 01/26/24 Clarissa Corado MD [address] [place] [address] Referring Physician Neurology 08/03/23 General Neurologist Relationship Specialty Start Date End Date Demetrius Cooper MD [address] [place] [phone] PCP - General Family Medicine 01/26/24 Clarissa Corado MD [address] [place] [address] Referring Physician Neurology 08/03/23 General Neurologist Relationship Specialty Start Date End Date Demetrius Cooper MD [address] [place] [phone] PCP - General Family Medicine 01/26/24 Clarissa Corado MD [address] [place] [address] Referring Physician Neurology 08/03/23 General Neurologist Relationship Specialty Start Date End Date Anjali Ruby CNP [address] [place] [address] Referring Family Medicine 03/03/23 Team Status: Inactive Member Role Status Dates Demetrisu Cooper MD Primary Care Provider Active Start: February 29, 2024 End: February 29, 2024 Luc Ham Jr, MD Attending Provider Active Start: February 29, 2024 End: February 29, 2024 General Neurologist Relationship Specialty Start Date End Date Demetrius Cooper MD [address] [place] [phone] PCP - General Family Medicine 01/26/24 Clarissa Corado MD [address] [place] [address] Referring Physician Neurology 08/03/23 General Neurologist Relationship Specialty Start Date End Date Demetrius Cooper MD [address] [place] [address] PCP - General Family Medicine 01/26/24 Clarissa Corado MD [address] [place] [id number] Referring Physician Neurology 08/03/23 General Neurologist Relationship Specialty Start Date End Date Demetrius Cooper MD [address] [place] [address] PCP - General Family Medicine 01/26/24 Clarissa Corado MD [address] [place] [phone] Referring Physician Neurology 08/03/23 General Neurologist Relationship Specialty Start Date End Date Demetrius Cooper MD [address] [place] [address] PCP - General Family Medicine 03/27/24 Anjali Ruby CNP [facility] [place] [address] Referring Family Medicine 03/03/23 Luc Ham MD [facility] [address] [place] [address] [facility] [phone] Ent - Otolaryngology 03/10/24 General Neurologist Relationship Specialty Start Date End Date Demetrius Cooper MD [address] [place] [address] PCP - General Family Medicine 01/26/24 Clarissa Corado MD [address] [place] [address] Referring Physician Neurology 08/03/23 General Neurologist Relationship Specialty Start Date End Date Demetrius Cooper MD [address] [facility] [place] [address] PCP - General Family Medicine 04/11/24 General Neurologist Relationship Specialty Start Date End Date Demetrius Cooper MD [address] [facility] [place] [address] PCP - General Family Medicine 04/11/24 General Neurologist Relationship Specialty [place] [address] [place] [address] [place] [address] PCP - General Family Medicine 04/11/24 General Neurologist Relationship Specialty Start [place] [address] [place] [address] [place] [address] PCP - General Family Medicine 04/11/24 Team [...] June 14, 2024 End: June 14, 2024 General Neurologist Relationship Specialty Start Date End Date Demetrius Cooper MD [address] [place] [phone] PCP - General Family Medicine 01/26/24 Clarissa Corado MD [address] [place] [address] Referring Physician Neurology 08/03/23 Team Status: Active Member Role Status Dates Demetrius Cooper MD Primary Care Provider Active Start: June 20, 2024 Mary Schneider MD Referring Provider Active S tart: June 20, 2024 Dennis Gray MD Attending Provider Active Start: June 20, 2024 General Neurologist Relationship Specialty Start Date End Date Demetrius Cooper MD [address] [place] [phone] PCP - General Family Medicine 01/26/24 Clarissa Corado MD [address] [place] [address] Referring Physician Neurology 08/03/23 Team Status: Active Member Role Status Dates Demetrius Cooper MD Primary Care Provider Active Start: July 06, 2024 Mary Schneider MD Referring Provider Active S tart: July 06, 2024 Dennis Gary MD Attending Provid er, Other Provider Active [...] Provider A ctive Start: August 20, 2024 General Neurologist Relationship Specialty Start Date End Date Demetrius Cooper MD [address] [facility] [place] [address] PCP - General Family Medicine 04/11/24 General Neurologist Relationship Specialty Start Date End Date Demetrius Cooper MD [address] [place] [address] PCP - General Family Medicine 01/26/24 Clarissa Corado MD Referring Physician Neurology 08/03/23 General Neurologist Relationship Specialty Start Date End Date Demetrius Cooper MD [address] [place] [address] PCP - General Family Medicine 01/26/24 Clarissa [...] September 26, 2024 End: September 26, 2024 General Neurologist Relationship Specialty Start Date End Date Demetrius Cooper MD [address] [place] [address] PCP - General Family Medicine 01/26/24 Clarissa Corado MD Referring Physician Neurology 08/03/23 General Neurologist Relationship Specialty Start Date End Date Demetrius Cooper MD [address] [place] [address] PCP - General Family Medicine 01/26/24 Clarissa Corado MD Referring Physician Neurology 08/03/23 General Neurologist Relationship Specialty Start Date End Date Demetrius Cooper MD [address] [place] [address] PCP - General Family Medicine 01/26/24 Clarissa [...] November 23, 2024 End: November 23, 2024 General Neurologist Relationship Specialty Start Date End Date Demetrius Cooper MD [facility] Physicians [facility] [place] [address] PCP - General Family Medicine 04/11/24 Team [...] Attending Provider Active Start: December 26, 2024 General Neurologist Relationship Specialty Start Date End Date Demetrius Cooper MD [address] [place] [address] PCP - General Family Medicine 01/26/24 Clarissa Corado MD Referring Physician Neurology 08/03/23 General Neurologist Relationship Specialty Start Date End Date Demetrius Cooper MD [address] [place] [address] PCP - General Family Medicine 01/26/24 Clarissa [...] or prosecute any alcohol or drug abuse patient.[facility] GeneralIn the event this information is protected by the Federal Confidentiality of Alcohol and Drug Abuse Patient Records regulations: The Federal rules restrict any use of the information to criminally investigate or prosecute any alcohol or drug abuse patient.[facility] GeneralIn the event this information is protected by the Federal Confidentiality of Alcohol and Drug Abuse Patient Records regulations: The Federal rules restrict any use of the information to criminally investigate or prosecute any alcohol or drug abuse patient.[facility] GeneralIn the event this information is protected by the Federal Confidentiality of Alcohol and Drug Abuse Patient Records regulations: The Federal rules restrict any use of the information to criminally investigate or prosecute any alcohol or drug abuse patient.[facility] GeneralIn the event this information is protected by the Federal Confidentiality of Alcohol and Drug Abuse Patient Records regulations: The Federal rules restrict any use of the information to criminally investigate or prosecute any alcohol or drug abuse patient.[facility] General PRN Active and Recently Administ ered Medications [...] BE BASED ON THE PRIMARY CLINICAL RECORDS. [employer] provides no warranty or guarantee of the accuracy or completeness of information in this document.
[2025-02-07 08:53] LABS: Hematocrit 38.6 % (42.0-54.0); Hemoglobin 12.8 g/dL (14.0-18.0); Immature Granulocytes Abs Auto 0.07 10^3/uL (0.00-0.03); Immature Granulocytes Pct Auto 1.0 % (0.0-0.5); Lymphocytes Absolute Auto 1.7 10^3/uL (1.2-3.8); Mean Corpuscular HGB Conc 33.2 g/dL (29.9-35.2); Mean Corpuscular Hemoglobin 31.2 pg (25.9-34.0); Mean Corpuscular Volume 94.1 fL (80.0-94.0); Platelet Count 189 10^3/uL (150-450); Red Blood Count 4.10 10^6/uL (4.70-6.10); White Blood Count 6.7 10^3/uL (4.0-11.0)
[2025-02-07 09:27] LABS: Alanine Aminotransferase 22 U/L (16-63); Albumin Globulin Ratio 1.0; Albumin Level 3.8 g/dL (3.4-5.0); Alkaline Phosphatase 98 U/L (46-116); Anion Gap 15.5; Aspartate Amino Transferase 22 U/L (15-37); Blood Urea Nitrogen 16.0 mg/dL (7.0-18.0); Calcium 9.3 mg/dL (8.5-10.1); Carbon Dioxide 23.5 mmol/L (21.0-32.0); Chloride 107 mmol/L (98-107); Cholesterol 117 mg/dL (<=200); Estimated GFR (African America >60 (>=60 mL/min/1.73m^2); Estimated GFR (Non-African Ame >60 (>=60 mL/min/1.73m^2); Free T3 2.84 pg/mL (2.18-3.98); Globulin 3.7 g/dL; Glucose 110 mg/dL (74-106); HDL Cholesterol 33 mg/dL (40-60); Potassium 4.0 mmol/L (3.5-5.1); Sodium 142 mmol/L (136-145); Thyroid Stimulating Hormone 3.949 uIU/mL (0.358-3.740); Total Protein 7.5 g/dL (6.4-8.2); Triglycerides 131 mg/dL (<=150); VLDL CHOLESTEROL 26.2 mg/dL
[2025-02-08 08:09] LABS: PSA, Free <0.02 ng/mL
== END 2025-02-07 08:13 | disposition home or self-care (01) ==
LOC: LAB 08:18
PROVIDERS: PCP Family Medicine; Visit Provider Family Medicine
DX: E78.5 Hyperlipidemia, unspecified (principal); R73.09 Other abnormal glucose; E03.9 Hypothyroidism, unspecified; R53.83 Other fatigue; E55.9 Vitamin D deficiency, unspecified; R97.20 Elevated prostate specific antigen [PSA]
CPT/HCPCS: 36415; 80053; 80061; 82306; 83036; 84153; 84154; 84436; 84443; 84481; 85025

== ENCOUNTER 2025-02-22 13:18 | Outpatient (OUT) | payer MEDICARE, SELFPAY ==
--- OUTSIDE RECORDS SUMMARY | 2025-02-22 13:27 | XMS_ITS | CCD ---
Author Organization [facility] Care Team Providers Care Carpenter Assistant Name Role Phone ELTAHAWY, EHAB A Admitting Unavailable ELTAHAWY, EHAB A Attending Unavailable DEMETRIUS COOPER Referring Unavailable DEMETRIUS COOPER Primary Care Unavailable Param Cosme Attending Provider Demetrius Cooper Primary Care Provider [phone] Param Cosme Attending Provider Demetrius Cooper Primary Care Provider [phone] Leti Garcia Unavailable MG LONDON Primary Care Physician KAT Westfall Attending Provider MD Mg [place] Primary Care Provider KAT Westfall Attending Provider MD Mg [place] Primary Care Provider MD Erwin Salazar Attending Provider Erwin Salazar Unavailable MARCE Hardy Attending Provider KAT Westfall Other Provider Demetrius Cooper Primary Care Physician Griselda Pennington Unavailable ALANNA HARDY Admitting Unavailable ALANNA HARDY Attending Unavailable LITA, DR MG Omalley Primary Care Unavailable SHORTER, DR ERWIN Bell Consulting Unavailable ALANNA HARDY [...] Care Unavailable LAZO ., SONNY Consulting Unavailable NADERER, DR MG Omalley Primary Care Unavailable CLANCY ., DR AMANDA Fish Attending Unavailable CLANCY ., DR AMANDA Fish Admitting Unavailable CLANCY ., DR AMANDA Fish Admitting Unavailable LAZO ., SONNY Consulting Unavailable CLANCY ., DR AMANDA Fish Attending Unavailable NADERESon, DR MG Omalley Primary Care Unavailable LAKSHMIPATHY ., NARENDRANATH Consulting Lisset vailable LAKSHMIPATHY ., NARENDKENDELLATH Attending Lisset vailable LAKSHMIPATHY ., NARENDKENDELLATH Admitting Lisset vailable NADERESon, DR MG Omalley Primary [...] NADERESon, DR MG Omalley Primary Care Unavailable HIGHLELLA, ALANNA Araiza Admitting Unavailable HIGHLANDER, ALANNA Araiza Attending Unavailable NADERER, DR MG Omalley Primary Care Unavailable HIGHLANDER, ALANNA Araiza Attending Unavailable HIGHLELLA, ALANNA Araiza Admitting Unavailable NADERER, DR MG Omalley Primary Care Unavailable MISC, DR BECKER Attending Unavailable FAWNATE, SHAIKH Jane Consulting Unavailable MISC, DR BECKER Admitting Unavailable NADERER, DR MG Omalley Primary Care Unavailable SHORTER, DR ERWIN Bell Consulting Unavailable ELTAHAWY, DR [...] Care Unavailable Boy, DAISHA Gisele Attending Provider [phone] MD Demetrius Cooper Primary Care Provider Boy Gisele Unavailable MD Erwin Salazar Attending Provider [phone] MD Demetrius Cooper Primary Care Provider MD Inez Henderson Attending Provider Esme Brunson NP Gisele Attending Provider FABIO Ruby Attending Provider Flori BRAINER, [facility] Unavailable [phone] MD Demetrius Cooper Primary Care Provider [phone] DAISHA Brunson Gisele Attending Provider [phone] Clarissa Corado MD Unavailable Demetruis Cooper MD Primary Care Provider Flori GARZA, [facility] A. Unavailable MD Demetrius Cooper Primary Care Provider MD Luc Ham Jr Attending Provider Luc Guo MD Unavailable Demetrius Cooper MD Primary Care Provider LUC HAM Referring Unavaila ble DEMETRIUS COOPER Primary Care Unavailable VAISHALI PRINGLE Attending Unavailable Unavailable Primary Care Provider UnavailDemetrius Davila MD Primary Care Provider [phone] Demetrius Cooper MD Primary Care Provider Ramin CASON, Talib Faustin Attending Provider Mary Schneider MD Referring Provider Demetrius Cooper MD Primary Care Provider Mary Schneider MD Referring Provider [phone] Dennis Gray MD Attending Provider Matteo Melo MD Attending Provider Demetrius Cooper MD Primary Care Provider Debora Wild APRN Attending Provider Mary Schneider MD Referring Provider Dennis Gray MD Attending Provider Mary Schneider MD Referring Provider Talib Faustin MD Attending Provider Demetrius Cooper Admitting Unavailable Demetrius Cooper Attending Unavailable Demetrius Cooper Admitting Unavailable Demetrius Cooper. Attending Unavailable Demetrius Cooepr Attending Unavailable Al-Talib Hargrove Attending Unavailabl e Talib Faustin Admitting Unavailalyssia e Mary Schneider Referring Unavailable Demetrius Cooper Primary Care Unavailable Al-Talib Hargrove Admitting Unavailabl e Al-Talib Hargrove Attending Unavailabl [...] Attending Provider Debora Wild APRN Attending Provider Dennis Gray MD Attending Provider Maru Ma DO Attending Provider Mary Schneider MD Referring Provider Talib Faustin MD Attending Provider Dennis Gray MD Attending Provider Pepito Galicia DO Attending Provider Dennis Gray MD Attending Provider Dennis Gray MD Attending Provider Mary Schneider MD Referring Provider [phone] Dennis Gray MD Attending Provider Mary Schneider MD Referring Provider Ramin CASON, Talib Faustin Attending Provider Louie Marrero DO Emergency Provider [phone] Jaiden Nance MD Admit Provider Jaiden Nance MD Attending Provider Martha CASON, Yash Other Provider Zeke Brennan MD Attending Provider [phone] Demetrius Cooper MD Primary Care Provider Mary Schneider MD Referring Provider Talib Faustin MD Attending Provider Maru Hayes MD Emergency Provider Clarissa Corado MD Unavailable Demetrius Miller MD Primary Care Provider [phone] Matteo Melo MD Attending Provider Mary Schneider MD Referring Provider Talib Faustin MD Attending Provider Demetrius Cooper Attending Unavailable Talib Faustin Attending UnavailTalib Abernathy Admitting Unavailabl Demetrius Avelar Attending Unavailable Demetrius Cooper Admitting Unavailable Demetrius Cooper Admitting Unavailable Yajaira Roque Attending Unavailable Demetrius Cooper Attending Unavailable MD Demetrius Cooper Attending Unavailable MD Demetrius Cooper Attending Unavailable MD Demetrius Cooper Attending Unavailable MD Demetrius Cooper Attending Unavailable Demetrius Cooper MD Primary Care Provider Becky Crouch APRN Attending Provider Boy ASHTON, Gisele Attending Provider [phone] Debora Wild APRN Attending Provider Veena Adkins DO Attending Provider Talib Faustin MD Attending Provider Mary Schneider MD Referring Provider [phone] Dennis Gray MD Attending Provider Inez Henderson Attending Unavaila ble Demetrius Cooper Attending Unavailable Demetrius Cooper Attending Unavailable Demetrius Cooper Attending Unavailable Demetrius Cooper Attending Unavailable Demetrius Cooper Attending Unavailable Demetrius Cooper Admitting Unavailable Ross, Demetrius E. Attending Unavailable Demetrius Cooper MD E Primary Care Provider [phone] Debora Wild APRN Attending Provider Debora Wild APRN Other Provider Becky Crouch APRN Attending Provider Mary Schneider MD Referring Provider MARY SCHNEIDER Attending Unavailable LEIGH SCHNEIDERN Qasim Referring Unavailable ROSS, DEMETRIUS JACKELYN Primary Care Unavailable SCHNEIDER, MARY N Admitting Unavailable SCHNEIDERLEIGH MELVINN N Attending Unavailable ROSS, DEMETRIUS JACKELYN Primary Care Unavailable ALIYAH MARY N Admitting Unavailable SCHNEIDERLEIGH MELVINN Qasim Attending Unavailable ROSS, DEMETRIUS JACKELYN Primary Care Unavailable SCHNEIDER, MARY N Referring Unavailable ROSS, DEMETRIUS JACKELYN Primary Care Unavailable SCHNEIDERLEIGH MELVINN N Attending Unavailable ROSS, DEMETRIUS JACKELYN Primary Care Unavailable ALIYAH MARY N Referring Unavailable ROSS, DEMETRIUS JACKELYN Primary Care Unavailable LEIGH SCHNEIDERN Qasim Attending Unavailable ROSS, DEMETRIUS JACKELYN Primary Care Unavailable SCHNEIDER, MARY N Attending Unavailable ROSS, DEMETRIUS JACKELYN Primary Care Unavailable Josh CASON, Clarissa Unavailable Matteo Melo Admitting Unavailable Ross, Demetrius E Primary Care Unavailable Matteo Melo Attending Unavailable Ross, Demetrius E Primary Care Unavailable Debora Wild Admitting Unavailable Debora Wild Attending Unavailable Ross, Demetrius E Primary Care Unavailable Debora Wild Attending Unavailable Debora Wild Admitting Unavailable Maru Hayes R Attending Unavailable Ross, Demetrius E Primary Care Unavailable Maru Hayes R Admitting Unavailable Ross, Demetrius E Primary Care Unavailable Jaiden Nance Admitting Unavailable Zeke Brennan Attending Unavailable Yash Thomas Unavailable Dennis Gray Attending Unavailable Ross, Demetrius E Primary Care Unavailable Dennis Gray Admitting Unavailable Talib Faustin Attending Unavailabl e Ross, Demetrius E Primary Care Unavailable Eddie-Talib Hargrove Yajess Admitting Unavailabl e Mary Schneider Referring Unavailable Francesca, Maru Attending Unavailable Ross, Demetrius E Primary Care Unavailable Francesca, Maru Admitting Unavailable Pepito Galicia Attending Unavailable Ross, Demetrius E Primary Care Unavailable Galicia, Pepito Admitting Unavailable Ross, Demetrius E Primary Care Unavailable Debora Wild Attending Unavailable Debora Wild Admitting Unavailable Ross, Demetrius E Primary Care Unavailable Debora iWld Attending Unavailable Debora Wild Admitting Unavailable Ross, Demetrius E Primary Care Unavailable Itzkowitz, Veena Attending Unavailable Itzkowitz, Veena Admitting Unavailable MELOMATTEO HUSTON Attending Unavailable DENNIS GRAY Referring Unavailable ISABEL ROMANO Attending Unavailable MELO V, MATTEO Attending Unavailable ITZKOWITZ, VEENA H Attending Unavailable MISSY WESTFALL Attending Unavailable ITZKOWITZ, VEENA H Attending Unavailable TIMMIS, LUC H Attending Unavailable ROSS, DEMETRIUS E Referring Unavailable TIMMIS, LUC H Referring Unavailable MISSY WESTFALL Attending Unavailable TIMMIS, LUC H Attending Unavailable TIMMIS, LUC H Attending Unavailable TIMMIS, LUC H Attending Unavailable ITZKOWITZ, VEENA H Attending Unavailable GELACIO PAREDES Referring Unava ilable ITZKOKENTRELLTZ, VEENA H Attending Unavailable STACEY PATEL Referring Unavailable JORGESTACEY Akers Attending Unavailable STACEY PATEL Referring Unavailable BOY BUITRAGO Attending Unavailable STACEY PATEL Referring Unavailable JORGE, STACEY Referring Unavailable JORGE, STACEY Attending Unavailable STACEY PATEL Admitting Unavailable BRAYANCORIN Cuello Referring Unavailable JORGESTACEY Referring Unavailable JORGESTACEY COTO Attending Unavailable STACEY PATEL Referring Unavailable Unavailable Unavailable Unavailable Allergies Allergy Classification Reported Allergen(s) Allergy Type Date of Onset Reaction(s) Facility (3 sources) Desonide Drug Allergy 0 [facility] Repository (1 source) Niacin Drug Allergy 0 [facility] Repository (20 sources) Adhesive agent; Translations: [adhesive] Drug allergy 4 [facility] (20 sources) Niacin; Translations: [niacin] Drug Allergy 9 hives, Itching (finding), Itching, Unknown [facility] (20 sources) Adhesive bandage; Translations: [Adhesive Bandage] Allergy to substance Eruption of skin (disorder) [facility] (5 sources) Niacin Drug Allergy hives [employer] Other (2 sources) Niaspan Starter Pack Drug allergy (disorder) 8 The [facility] Repository (15 sources) Adhesive Tape-Silicones; Translations: [ADHESIVE TAPE-SILICONES] Drug Allergy 9 Rash [facility] (20 sources) Niacin Drug Allergy 9 Itching, Unknown [facility] (20 sources) Wound Dressing Adhesive Drug Allergy 3 Unknown [facility] (4 sources) Niacin; Translations: [Niaspan ER] Drug Allergy [facility] Repository (2 sources) Niacin Drug Allergy 5 [facility] Repository Medications Current Medications Medication Drug Class(es) Dates Sig (Normalized) Sig (Original) acetaminophen 325 mg / butalbital 50 mg / caffeine 40 mg oral capsule (20 sources) Barbiturate, Central Nervous System Stimulant, Methylxanthine Start: 11-29-2023 take 1 capsule by mouth every four hours for headache Esgic 325 mg-50 mg-40 mg oral capsule 1 cap(s), Oral, q4hr for headache, 60 cap(s), Refill(s) 1, [id number], 160, cm, 11/29/23 10:29:00 EDT, Height/Length Dosing, 78.5, kg, 11/29/23 10:29:00 EDT, Weight Dosing Start Date: 11/29/23 Status: Ordered Quantity: 60.0 Unit: cap(s) Repeat number: 2 Start: 12-15-2022 End: 10-11-2024 take 1 tablet by mouth every four hours as needed nkjwawvcge-mqmhkoewadctz-oyte 50-325-40 mg tablet Take 1 tablet by [...] MOUTH EVERY 6 HOURS, [facility]), 163, cm, 11/04/22 15:03:00 EDT, Height/Length Dosing, 76, kg, 11/04/22 15:03:00 EDT, Weight Dosing Start Date: 11/09/22 Status: Ordered Quantity: 17.0 Unit: g Repeat number: 1 Start: 11-09-2022 Albuterol (Eqv -ProAir HFA) 90 mcg/inh inhalation aerosol See Instructions, 17 gm, Refill(s) 6, USE 2 INHALATIONS BY MOUTH EVERY 6 HOURS, [facility]), 163, cm, 11/04/22 15:03:00 EDT, Height/Length Dosing, 76, kg, 11/04/22 15:03:00 EDT, Weight Dosing Start Date: 11/09/22 Status: Ordered {1 (Ascorbic Acid 7540 MG / POLYETHYLENE GLYCOL 3350 24980 MG / Potassium Chloride 1200 MG / Sodium Ascorbate 66126 MG / Sodium Chloride 3200 MG Powder for Oral Solution) / 1 (POLYETHYLENE GLYCOL 3350 887864 MG / Potassium Chloride 1000 MG / Sodium Chlori (5 sources) Osmotic Laxative, Vitamin C Start: 12-15-2022 Plenvu oral powder for reconstitution See Instructions, 1 EA, Refill(s) 0, Prior to colonoscopy., [id number], 163, cm, 12/15/22 12:03:00 EDT, Height/Length Dosing, [...] procedure, # 10 cap(s), Refills(s) 0, Pharmacy: [facility] #[id number], 167, cm, 04/27/22 8:46:00 EST, Height/Length Dosing, [...] 0, one scoop BID 90 day supply, [id number], 162, cm, 08/30/23 10:00:00 EDT, Height/Length Dosing, 78.4, kg, 08/30/23 10:00:00 EDT, Weight Dosing Start Date: 09/06/23 Status: Ordered Start: 05-25-2023 End: 08-23-2023 take 4 g by mouth once daily Questran 4 g/9 g oral pow shaye 4 gm, Oral, Daily, X 90 day(s), # 90 packet(s), Refills(s) 0, Pharmacy: [facility] #[id number], 163, cm, 05/25/23 12:33:00 EST, Height/Length Dosing, [...] Intraprocedure Fish Oils (7 sources) Start: 11-04-2022 [place]-3 Fish O il Oral, Daily, Refills(s) 0, Prophylaxis Start Date: 11/04/22 Status: Ordered Start: 11-04-2022 [place]-3 Fish O il Oral, Daily, Refills(s) 0 Start Date: 11/04/22 Status: Ordered fluticasone 0.05 mg/inh Nasal [place] (1 source) Start: 04-24-2020 fluticasone 0. 05 mg/inh Nasal [place] Daily, Refill(s) 0 Start Date: 04/24/20 Status: [...] 6 days September, Active [facility] [place] (6 sources) Start: 11-08-2023 [facility] [place] Transdermal Therapeutics up to four times per day: Meloxicam 0.5%/ Doxepin 3%/ Amantidine 3%/Dextromethorphan 2%/ Lidocaine 2% Start Date: 11/08/23 Status: Ordered Repeat number: 1 Start: 11-08-2023 [facility] [place] Transdermal Therapeutics up to four [...] 0, Prophylaxis Start Date: 04/24/20 Status: Ordered [place] 3 (5 sources) [place] 3 Active omega-3 acid ethyl esters (prison) 1000 mg oral capsule (20 sources) take [...] Pantoprazole Sod ium Active polyethylene glycol 3350 61470 mg powder for oral solution (7 sources) Osmotic Laxative Start: 09-20-2024 Potassium Chloride (9 sources) Start: 08-30-2024 take 1 tablet by mouth twice daily Potassium Chloride (Joy-Ksnl-Aip M20) 20 mEq oral tablet, extended release [...] cream Discontinued 1 APPLIC TOPICAL Twice daily August 18, 2024 12:00am October 03, 2024 [...] 8:40am Start: 11-08-2023 [facility] daily at bedtime Tylenol PM Oral, Once a day (at bedtime), Refill(s) 0, 250mg- 2 tabs at HS Start Date: 11/08/23 Status: Ordered take 25-500 mg by mo [facility] once as needed diphenhydrAMINE-acetaminophen (Tylenol PM) 25-500 [...] oral tablet (9 sources) Cephalosporin Antibacterial Start: 025 End: take 1 tablet by mouth twice daily at mealtime Cefpodoxime 200 mg tablet Discontinued 200 MG PO Twice daily 6 August 21, 2024 12:00am October 03, 2024 10:22am must administer with a meal/food clopidogrel 75 mg oral tablet (20 sources) [id number] Platelet Inhibitor Start: 020 End: take 1 tablet by mouth once [...] Corticosteroid Start: 01-18-2024 fluticasone Nasal 0.05 mg/inh [place] See Instructions, 16 gm, Refill(s) 0, USE [...] (F LONASE) 50 mcg/actuation nasal spray 1 [place]. 08/24/2022 Active Start: 08-24-2022 take 1 spray(s) nasa l route twice daily Flonase 0.05 mg/inh [place] 1 spray(s), Nasal, BID, 16 gram, Refill(s) 0, each nostril, [facility] 167.6, cm, 08/24/22 8:10:00 [...] for 30 Active Comment on above: 1 [place]. irbesartan 300 mg oral tablet (20 sources) [...] oral tablet (20 sources) Nitrate Vasodilator Start: 03-12-202 4 take 1 tablet by mouth every [...] 2024 1:00am July 26, 2024 8:43am nystatin [id number] unt oral tablet (20 sources) Polyene Antifungal Start: 08-17-2024 End: 11-23-2024 take 1 tablet by mouth four times daily Nystatin 500,000 unit tablet Discontinued [id number] UNIT PO Four times daily 40 September 14, 2024 9:24am November 23, 2024 10:01am Start: 08-02-2024 End: 08-20-2024 Nystatin 100,000 unit/mL alisia pension Discontinued [id number] UNIT PO Four times daily 224 August 02, 2024 12:00am August 20, 2024 6:07pm administer 1/2 of dose in each side of the mouth Nystatin 100,000 unit/mL suspension (8 sources) Start: 08-02-2024 End: 08-20-2024 Nystatin 100,000 unit/mL suspension Discontinued [id number] UNIT PO Four times daily 224 August 02, 2024 12:00am August 20, 2024 6:07pm administer 1/2 of dose in each side of the mouth Start: 08-02-2024 Nystatin 100,0 00 unit/mL suspension Active [id number] UNIT PO Four times daily 224 August [...] above: Take 10 mg by mouth. sennosides, prison 8.6 mg oral tablet (6 sources) Start: [...] Coronary arteriosclerosis; Translations: [Atherosclerotic heart disease of [place] coronary artery without angina pectoris] Onset: 9 [...] on above: noted in 08[place]20/2024 [facility] [place] page 5. 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; Translations: [OTH PLUMBING TECHNICIAN CURRENT DRUG THERAPY] Onset: 3 Episodic Other aftercare (1 source) skilled nursing (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; Translations: [PLUMBING TECHNICIAN CURRENT USE OF ASPIRIN] Onset: 3 Episodic Other aftercare (1 source) skilled nursing (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 of antithrombotics/antipl atelets; Translations: [PLUMBING TECHNICIAN ANTITHROMBOT/ANTIPLATL ETS] Onset: 3 Episodic Other aftercare (1 source) intermodal customer service (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 of oral hypoglycemic drugs; Translations: [HALF-WAY USE ORAL HYPOGLYCEMIC DX] Onset: 3 Episodic [...] on above: noted in 08/21/2024 [facility] [place] Summary page 2. added per OP [...] encounter status 02-25-2023 Unclassified (4 sources) A [facility] screening has identified you as FRAIL or [...] Four Ways to Beat the Frailty Risk [email or web address] [email or web address] [email or web address] 08-21-2024 Unclassified (1 source) Mild pulmonary [...] Test Name Value Interpretation Reference Range Facility Orders Onlyon 02-06-2025 Orders Only [id number] [address] P 1940 M Date Provider Department Center 02/06/2025 STACEY ERNANDEZ C CARD [facility] Family History Problem Relation Age of Onset Coronary artery disease Mother Kidney disease Mother Heart failure Mother Family Status - Relation Status Age at Mother Father Normal [facility] Office Visiton 12-05-2024 Follow-up visit [id number] [address] P 1940 M Date Provider Department Center 12/05/2024 STACEY ERNANDEZ CARD [facility] Family History Problem Relation Age of Onset Coronary artery disease Mother Kidney disease Mother Heart failure Mother Family Status - Relation Status Age at Mother Father Level of Service:63161 [place] OFFICE/OUTPATIENT ESTABLISHED LOW MDM 20 MIN Normal [facility] Ambulatory Visit Summaryon 0 11-21-2024 Ambulatory [...] Film) fluticasone nasal (fluticasone Nasal 0.05 mg/inh [place]) furosemide (furosemide 20 mg Tab) irbesartan (irbesartan [...] fluticasone nasal (fluticasone Nasal 0.05 mg/ inh [place]) See instructions USE 1 SPRAY IN BOTH [...] to opioid therapy 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 Normal [facility] Office/Clini c Noteon 11-21-2024 Family Medicine [...] of clutter to prevent tripping and/or falling. [place] Advance Directives reviewed, present at home. Encouraged [...] healthy weight. (more content not included)... Normal [facility] Comment on above: Result Comment: Elec tronically Signed By: MARICRUZ TREVINO CNP\.br\Date and Time Signed: 11/21/24 16:03 EDT\.br\Electronically Co-Signed By: Monse Puckett\.br\Date and Time Co-Signed: 11/21/24 14:59 EDT Alanine aminotransferase [En zymatic activity/volume] in Serum or PlasmaOrdered By: Elif Carroll on 11-13-2024 ALT [Catalytic activity/Vol] 14 U/L Normal 7-52 [facility] Comment on above: Performed By: #### M G, SCAN CBC, CMP #### [facility] [address] [place] [address] [place] Albumin [Mass/volume] in Ser um or Plasma by Bromocresol green (BCG) dye binding methoOrdered By: Elif Carroll on 11-13-2024 Albumin BCG dye [Mass/Vol] 4.2 g/dL 3.5-5.7 [facility] Alkaline phosphatase [Enzyma tic activity/volume] in Serum or PlasmaOrdered By: Eilf Carroll on 11-13-2024 ALP [Catalytic activity/Vol] 80 U/L Normal 34-104 [facility] Comment on above: Performed By: #### M G, SCAN CBC, CMP #### [facility] [address] [place] [address] [place] Aspartate aminotransferase [ Enzymatic activity/volume] in Serum or PlasmaOrdered By: Elif Carroll on 11-13-2024 AST [Catalytic activity/Vol] 15 U/L Normal 13-39 [facility] Comment on above: Performed By: #### M G, SCAN CBC, CMP #### [facility] [address] [place] [address] [place] Basophils [#/volume] in Bloo d by Automated countOrdered By: Elif Carroll on 11-13-2024 Basophils (Bld) [#/Vol] 0.0 10*3/uL Normal 0.0-0.2 [facility] Comment on above: Performed By: #### M G, SCAN CBC, CMP #### [facility] [address] [place] [address] [place] Basophils/100 leukocytes in Blood by Automated countOrdered By: Elif Carroll on 11-13-2024 Basophils/100 WBC (Bld) 0.5 % Normal . [facility] Comment on above: Performed By: #### M G, SCAN CBC, CMP #### [facility] [address] Bilirubin.total [Mass/volume ] in Serum or PlasmaOrdered By: Elif Carroll on 11-13-2024 Bilirubin [Mass/Vol] 0.4 mg/dL Normal 0.3-1.0 [facility] Comment on above: Performed By: #### M G, SCAN CBC, CMP #### [facility] [address] Calcium [Mass/volume] in Ser um or PlasmaOrdered By: Elif Carroll on 11-13-2024 Calcium [Mass/Vol] 9.3 mg/dL Normal 8.6-10.3 [facility] Comment on above: Performed By: #### M G, SCAN CBC, CMP #### [facility] [address] Capillary blood glucose juan urement by glucometer (mass/volume)Ordered By: Talib Faustin on 11-13-2024 Glucose [Mass/Vol] 114 mg/dL Normal [facility] Comment on above: Random Glucose Refer ence Range is dependent on time and content of last meal. Glucose of more than 200 mg/dL in a nonstressed, ambulatory subject supports the diagnosis of Diabetes Mellitus. Result Comment: [place] Glucose Reference Range is dependent on time and content of last meal. Glucose of more than 200 mg/dL in a nonstressed, ambulatory subject supports the diagnosis of Diabetes Mellitus. PERFORMED BY: [address] [place] [address] PATHOLOGIST FILE SYSTEM INSTALLER AD ROSENBAUM M.D. Performed By: #### G LULS #### Point of Care testing , Carbon dioxide, total [Moles /volume] in Serum or PlasmaOrdered By: Elif Carroll on 11-13-2024 CO2 [Moles/Vol] 26.6 mmol/L Normal 21.0-31.0 [facility] Comment on above: Performed By: #### M G, SCAN CBC, CMP #### [address] Chloride [Moles/volume] in S stephanie or PlasmaOrdered By: Elif Carroll on 11-13-2024 Chloride [Moles/Vol] 104 mmol/L Normal 98-107 [facility] Comment on above: Performed By: #### M G, SCAN CBC, CMP #### [address] Comprehensive Metabolic Pane odbulio 11-13-2024 Albumin [Mass/Vol] 4.2 g/dL Normal 3.5-5.7 The Pending sale to [facility] Comment on above: Performed By: #### M G, SCAN CBC, CMP #### [address] Creatinine Clr Calc Pharmacy 60.92 Normal [facility] Comment on above: Performed By: #### M G, SCAN CBC, CMP #### [place] [address] [place] GFR/1.73 sq M.predicted MDRD (S/P/Bld) [Vol rate/Area] mL/min/{1.73_m2} Normal [facility] Comment on above: Performed By: #### M G, SCAN CBC, CMP #### [address] Creatinine [Mass/volume] in Serum or PlasmaOrdered By: Elif Carroll on 11-13-2024 Creatinine [Mass/Vol] 0.80 mg/dL Normal 0.70-1.30 [facility] Comment on above: Performed By: #### M G, SCAN CBC, CMP #### [place] [address] [place] Eosinophils [#/volume] in Bl ood by Automated countOrdered By: Elif Carroll on 11-13-2024 Eosinophils (Bld) [#/Vol] 0.2 10*3/uL Normal 0.0-0.45 [facility] Comment on above: Performed By: #### M G, SCAN CBC, CMP #### [place] [address] [place] Eosinophils/100 leukocytes i n Blood by Automated countOrdered By: Elif Carroll on 11-13-2024 Eosinophils/100 WBC (Bld) 2.9 % Normal . [facility] Comment on above: Performed By: #### M G, SCAN CBC, CMP #### [facility] [address] Erythrocyte distribution wid th [Ratio] by Automated countOrdered By: Elif Carroll on 11-13-2024 Erythrocyte distribution width (RBC) [Ratio] 14.7 % Normal 12.0-14.8 [facility] Comment on above: Performed By: #### M G, SCAN CBC, CMP #### [facility] [address] Erythrocyte morphology findi ng [Identifier] in BloodOrdered By: Elif Carroll on 11-13-2024 RBC morphology finding Nom (Bld) Normal Normal Normal [facility] Comment on above: Performed By: #### M G, SCAN CBC, CMP #### [facility] [address] Erythrocytes [#/volume] in B lood by Automated countOrdered By: Elif Carroll on 11-13-2024 RBC (Bld) [#/Vol] 4.11 10*6/uL Normal 3.90-5.60 [facility] Comment on above: Performed By: #### M G, SCAN CBC, CMP #### [facility] [address] [place] [address] [place] Glucose [Mass/volume] in Ser um or PlasmaOrdered By: Elif Carroll on 11-13-2024 Glucose [Mass/Vol] 108 mg/dL High 70-100 [facility] Comment on above: ADA recommended refe rence rangeRandom Glucose Reference Range is dependent on time and content of last meal. Glucose of more than 200 mg/dL in a nonstressed, ambulatory subject supports the diagnosis of Diabetes Mellitus. Result Comment: [place] Glucose Reference Range is dependent on time and content of last meal. Glucose of more than 200 mg/dL in a nonstressed, ambulatory subject supports the diagnosis of Diabetes Mellitus. ADA recommended reference range Performed By: #### M G, SCAN CBC, CMP #### [address] Hematocrit [Volume Fraction] of Blood by Automated countOrdered By: Elif Carroll on 11-13-2024 Hematocrit (Bld) [Volume fraction] 38.5 % Low 38.8-50.0 [facility] Comment on above: Performed By: #### M G, SCAN CBC, CMP #### [facility] [address] [place] [address] Hemoglobin [Mass/volume] in BloodOrdered By: Elif Carroll on 11-13-2024 Hemoglobin (Bld) [Mass/Vol] 12.8 g/dL Low 13.0-17.0 [facility] Comment on above: Performed By: #### M G, SCAN CBC, CMP #### [address] Leukocytes [#/volume] correc suzy for nucleated erythrocytes in Blood by Automated counOrdered By: Elif Carroll on 11-13-2024 WBC corrected for nucl RBC Auto (Bld) [#/Vol] 8.5 10*3/uL 4.1-10.5 [facility] Leukocytes [#/volume] in Blo od by Automated countOrdered By: Elif Carroll on 11-13-2024 WBC (Bld) [#/Vol] 8.5 10*3/uL Normal 4.1-10.5 [facility] Comment on above: Performed By: #### M G, SCAN CBC, CMP #### [facility] [address] [place] [address] [place] Lymphocytes [#/volume] in Bl ood by Automated countOrdered By: Elif Carroll on 11-13-2024 Lymphocytes (Bld) [#/Vol] 1.9 10*3/uL Normal 1.00-4.8 [facility] Comment on above: Performed By: #### M G, SCAN CBC, CMP #### [place] [address] [place] Lymphocytes/100 leukocytes i n Blood by Automated countOrdered By: Elif Carroll on 11-13-2024 Lymphocytes/100 WBC (Bld) 22.1 % Normal . [facility] Comment on above: Performed By: #### M G, SCAN CBC, CMP #### [facility] [address] [place] [address] MCH [Entitic mass] by Automa suzy countOrdered By: Elif Carroll on 11-13-2024 MCH (RBC) [Entitic mass] 31.1 pg Normal 27.5-35.2 [facility] Comment on above: Performed By: #### M G, SCAN CBC, CMP #### [address] MCHC Auto (RBC) [Mass/Vol]Or dered By: Elif Carroll on 11-13-2024 MCHC (RBC) [Mass/Vol] 33.2 g/dL 32.5-35.6 [facility] MCV [Entitic volume] by Auto mated countOrdered By: Elif Carroll on 11-13-2024 MCV (RBC) [Entitic vol] 93.7 fL Normal 83.5-101 [facility] Comment on above: Performed By: #### M G, SCAN CBC, CMP #### [address] Magnesium [Mass/volume] in S stephanie or PlasmaOrdered By: Elif Carroll on 11-13-2024 Magnesium [Mass/Vol] 2.1 mg/dL Normal 1.9-2.7 [facility] Comment on above: Result Comment: PERF ORMED BY: [place] [address] PATHOLOGIST FILE SYSTEM INSTALLER AD ROSENBAUM M.D. Performed By: #### M G, SCAN CBC, CMP #### [address] Monocytes [#/volume] in Bloo d by Automated countOrdered By: Elif Carroll on 11-13-2024 Monocytes (Bld) [#/Vol] 0.8 10*3/uL Normal 0.0-0.8 [facility] Comment on above: Performed By: #### M G, SCAN CBC, CMP #### [place] [address] [place] Monocytes/100 leukocytes in Blood by Automated countOrdered By: Elif Carroll on 11-13-2024 Monocytes/100 WBC (Bld) 9.2 % Normal . [facility] Comment on above: Performed By: #### M G, SCAN CBC, CMP #### [place] [address] [place] Neutrophils [#/volume] in Bl ood by Automated countOrdered By: Elif Carroll on 11-13-2024 Neutrophils (Bld) [#/Vol] 5.6 10*3/uL Normal 1.8-7.7 [facility] Comment on above: Performed By: #### M G, SCAN CBC, CMP #### [address] Neutrophils/100 leukocytes i n Blood by Automated countOrdered By: Elif Carroll on 11-13-2024 Neutrophils/100 WBC (Bld) 65.3 % Normal . [facility] Comment on above: Performed By: #### M G, SCAN CBC, CMP #### [address] No Panel InformationOrdered By: Elif Carroll on 11-13-2024 Estimated GFR (CKD-EPI) > 60.0 mL/Min [facility] Creatinine Clearance (Chem 60.92 [facility] Nucleated erythrocytes [Pres ence] in Blood by Automated countOrdered By: Elif Carroll on 11-13-2024 Nucleated RBC Auto Ql (Bld) 0.2 /100{WBC} 0-0.5 [facility] PET tumor subq tx strat sb-m ton 11-13-2024 PET tumor subq tx strat sb-mt [facility] Main [place] [address] [place] [address] Nuclear Medicine Report Signed Patient: Jeremie Bennett MR#: [id number] 669 : 1940 Acct:[id number] Age/Sex: 84 / M ADM Date: 11/23/24 Loc: Room: Type: [facility] Attending Dr: Talib Faustin MD Copies to: Mario Urias Jr, DO Mary K Demboske, APRN Mhd MD Dennis Paredes MD Ordering Provider: Becky Crouch APRN Date [...] Jr., D.OAidan 11/13/2024 3:50 PM Dictation Location: [place] [address] Transcribed By: [facility] 11/13/24 1550 Dictated By: Mario Urias Jr, DO 11/13/24 1539 Signed By: 11/13/24 1550 Normal [facility] Platelet adequacy [Presence] in Blood by Light microscopyOrdered By: Elif Carroll on 11-13-2024 Platelets LM Ql (Bld) Normal Normal [facility] Platelet mean volume [Entiti c volume] in Blood by Automated countOrdered By: Elif Carroll on 11-13-2024 Platelet mean volume (Bld) [Entitic vol] 8.4 fL Normal 6.6-10.1 [facility] Comment on above: Performed By: #### M G, SCAN CBC, CMP #### [facility] [address] [place] [address] Platelet morphology finding [Identifier] in BloodOrdered By: Elif Carroll on 11-13-2024 Platelet morphology finding Nom (Bld) Normal Normal [facility] Platelets [#/volume] in Bloo d by Automated countOrdered By: Elif Carroll on 11-13-2024 Platelets (Bld) [#/Vol] 223 10*3/uL Normal 150-450 [facility] Comment on above: Performed By: #### M G, SCAN CBC, CMP #### [facility] [address] Potassium [Moles/volume] in Serum or PlasmaOrdered By: Elif Carroll on 11-13-2024 Potassium [Moles/Vol] 4.2 mmol/L Normal 3.5-5.1 [facility] Comment on above: Performed By: #### M G, SCAN CBC, CMP #### [facility] [address] Protein [Mass/volume] in Ser um or PlasmaOrdered By: Elif Carroll on 11-13-2024 Protein [Mass/Vol] 7.3 g/dL Normal 6.4-8.9 [facility] Comment on above: Performed By: #### M G, SCAN CBC, CMP #### [facility] [address] Scan and CBCon 11-13-2024 Mean Corpuscular HGB Conc 33.2 g/dL Normal 32.5-35.6 [facility] Comment on above: Performed By: #### M G, SCAN CBC, CMP #### [facility] [address] NRBC% 0.2 /100{WBC} Normal 0-0.5 [facility] Comment on above: Performed By: #### M G, SCAN CBC, CMP #### [facility] [address] Platelet Estimate Normal Normal Normal [facility] Comment on above: Performed By: #### M G, SCAN CBC, CMP #### [facility] [address] Platelet Morphology Normal Normal Normal The [facility] Comment on above: Result Comment: PERF ORMED BY: [facility] [place] [address] PATHOLOGIST FILE SYSTEM INSTALLER AD ROSENBAUM M.D. Performed By: #### M G, SCAN CBC, CMP #### [address] White Blood Count 8.5 [CFU]/mL Normal 4.1-10.5 The [facility] Comment on above: Performed By: #### M G, SCAN CBC, CMP #### [address] Serum globulin measurement b y calculation (mass/volume)Ordered By: Elif Carroll on 11-13-2024 Globulin (S) [Mass/Vol] 3.1 g/dL [facility] Comment on above: Performed By: #### M G, SCAN CBC, CMP #### [address] Serum or plasma albumin/glob ulin mass ratioOrdered By: Elif Carroll on 11-13-2024 Albumin/Globulin [Mass ratio] 1.4 {ratio} [facility] Comment on above: Performed By: #### M G, SCAN CBC, CMP #### [address] Serum or plasma anion gap de terminationOrdered By: Elif Carroll on 11-13-2024 Anion gap [Moles/Vol] 10.6 mmol/L Normal 6.0-15.0 [facility] Comment on above: Performed By: #### M G, SCAN CBC, CMP #### [address] Sodium [Moles/volume] in Ser um or PlasmaOrdered By: Elif Carroll on 11-13-2024 Sodium [Moles/Vol] 137 mmol/L Normal 136-145 [facility] Comment on above: Performed By: #### M G, SCAN CBC, CMP #### [address] Urea nitrogen [Mass/volume] in Serum or PlasmaOrdered By: Elif Carroll on 11-13-2024 Urea nitrogen [Mass/Vol] 29 mg/dL High 7-25 [facility] Comment on above: Performed By: #### M G, SCAN CBC, CMP #### [facility] [address] Ambulatory Visit Summaryon 0 2024 Ambulatory [...] Film) fluticasone nasal (fluticasone Nasal 0.05 mg/inh [place]) furosemide (furosemide 20 mg Tab) irbesartan (irbesartan [...] Appointments Wednesday 2:30 PM EDT With: Where: [address] [address]- Wednesday 1:20 PM EDT With: Hermes CASON, Demetrius Rosa Where: [address] [address]- Medications What How Much When Instructions Unchanged nystatin (nystatin 100,000 units/ mL Oral Susp) 4 Milliliter By Mouth 4 times a day Pickup at [facility] #[id number] Unchanged albuterol (Albuterol (Eqv-ProAir HFA) 90 mcg/ [...] fluticasone nasal (fluticasone Nasal 0.05 mg/ inh [place]) See instructions USE 1 SPRAY IN BOTH [...] CAPSULE BY (more content not included)... 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 Normal [facility] Comment on above: Result Comment: Elec tronically Signed By: Hermes CASON, Demetrius Branham.br\Date and Time Signed: 10/30/24 18:01 EDT Ambulatory [...] Film) fluticasone nasal (fluticasone Nasal 0.05 mg/inh [place]) furosemide (furosemide 20 mg Tab) irbesartan (irbesartan [...] Appointments Wednesday 2:30 PM EDT With: Where: [address] [address]- Wednesday 3:20 PM EDT With: Hermes CASON, Demetrius Rosa Where: [facility] [address] [address]- Medications What How Much When Instructions Unchanged [...] fluticasone nasal (fluticasone Nasal 0.05 mg/ inh [place]) See instructions USE 1 SPRAY IN BOTH [...] to opioid therapy Coronary artery disease involving cocopah coronary artery of cocopah heart without angina pectoris Diabetic autonomic neuropathy associated with type 2 diabetes mellitus Diverticulosis FH: stomach can (more content not included)... Normal [facility] Ambulatory Visit Summary Ambulatory Visit Summary JEREMIE [...] Film) fluticasone nasal (fluticasone Nasal 0.05 mg/inh [place]) furosemide (furosemide 20 mg Tab) irbesartan (irbesartan [...] Appointments Wednesday 2:30 PM EDT With: Where: [address] [address]- Wednesday 3:20 PM EDT With: Hermes CASON, Demetrius Rosa Where: [address] [address]- Medications What How Much When Instructions Unchanged [...] fluticasone nasal (fluticasone Nasal 0.05 mg/ inh [place]) See instructions USE 1 SPRAY IN BOTH [...] to opioid therapy Coronary artery disease involving cocopah coronary artery of cocopah heart without angina pectoris Diabetic autonomic neuropathy associated with type 2 diabetes mellitus Diverticulosis FH: stomach cancer Former smoker GERD with apnea Gla (more content not included)... 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 Normal [facility] Comment on above: Result Comment: Elec tronically Signed By: Hermes CASON, Demetrius Rosa\.marco a\Date and Time Signed: 10/12/24 15:08 EDT Capillary blood glucose juan urement by glucometer (mass/volume)Ordered By: Veena Adkins on 10-03-2024 Glucose [Mass/Vol] 103 mg/dL Normal [facility] Comment on above: Random Glucose Refer ence Range is dependent on time and content of last meal. Glucose of more than 200 mg/dL in a nonstressed, ambulatory subject supports the diagnosis of Diabetes Mellitus. Result Comment: [facility] Glucose Reference Range is dependent on time and content of last meal. Glucose of more than 200 mg/dL in a nonstressed, ambulatory subject supports the diagnosis of Diabetes Mellitus. Performed By: #### G LULS #### Point of Care testing , GLUCOSE POCT GLUCOMETERSon 0 10-03-2024 COMMEMT1 Glu2: Cleaned Meter [facility] Glucose [Mass/Vol] 103 mg/dL [facility] Comment on above: Random Glucose Refer ence Range is dependent on time and content of last meal. Glucose of more than 200 mg/dL in a nonstressed, ambulatory subject supports the diagnosis of Diabetes Mellitus. [facility] Glucose Poct Glucometerson 0 10-03-2024 Commemt1 Glu2: Cleaned Meter Normal The [facility] Comment on above: Result Comment: PERF ORMED BY: [facility] [address] [place] [address] PATHOLOGIST FILE SYSTEM INSTALLER HEBER SHANNON M.D. Performed By: #### G LULS #### Point of Care testing , No Panel InformationOrdered By: Veena Adkins on 10-03-2024 Bedside Glucose Comment Glu2: cleaned meter [facility] Family Medicine Office/Clini c Noteon 09-28-2024 Family Medicine Office/Clinic Note Family Medicine Office/Clinic Note Chief Complaint ER follow up Abdominal pain and difficulty swallowing [facility] Staff 2 week follow up to RUQ pain. Liver US ordered @ [facility]. Instructed to get done if pain worsens. [place] since then [place] [facility] CC: abdominal pain & constipation States [...] day(s), # 140 mL, Refills(s) 0, Pharmacy: [id number], 160, cm, 09/28/24 14:41:00 EDT, Height/Length Dosing, [...] oral thrush. I prescribed Nystatin in a [id number]-lym-[id number] method to effectively address the thrush symptoms [...] to opioid therapy Coronary artery disease involving cocopah coronary artery of cocopah heart without angina pectoris Diabetic autonomic neuropathy associated with type 2 diabetes mellitus Diverticulo (more content not included)... Normal [facility] Comment on above: Result Comment: Elec tronically Signed By: Hermes CASON, Demetrius Branham.br\Date and Time Signed: 09/28/24 15:12 EDT Alanine aminotransferase [En zymatic activity/volume] in Serum or PlasmaOrdered By: Maru Hayes on 09-20-2024 ALT [Catalytic activity/Vol] Alanine aminotransferase [Enzymatic activity/volume] in Serum or Plasma 7-52 [facility] ALT [Catalytic activity/Vol] 9 U/L Normal [facility] Comment on above: Performed By: #### M G, SCAN CBC, CMP #### [facility] [address] Albumin [Mass/volume] in Ser um or Plasma by Bromocresol green (BCG) dye binding methoOrdered By: Maru Hayes on 09-20-2024 Albumin BCG dye [Mass/Vol] Albumin [Mass/volume] in Serum or Plasma by Bromocresol green (BCG) dye binding metho 3.5-5.7 [facility] Albumin BCG dye [Mass/Vol] 3.5 g/dL 3.5-5.7 [facility] Alkaline phosphatase [Enzyma tic activity/volume] in Serum or PlasmaOrdered By: Maru Hayes on 09-20-2024 ALP [Catalytic activity/Vol] Alkaline phosphatase [Enzymatic activity/volume] in Serum or Plasma 34 [facility] ALP [Catalytic activity/Vol] 81 U/L Normal [facility] Comment on above: Performed By: #### M G, SCAN CBC, CMP #### [facility] [address] Appearance of UrineOrdered B y: Maru Hayes on 09-20-2024 Appearance (U) Urine appearance Clear [facility] Appearance (U) Clear Normal Clear [facility] Comment on above: Order Comment: Name Collection Type:: Clean-Voided Midstream Performed By: #### U A #### [facility] [address] Aspartate aminotransferase [ Enzymatic activity/volume] in Serum or PlasmaOrdered By: Maru Hayes on 09-20-2024 AST [Catalytic activity/Vol] Aspartate aminotransferase [Enzymatic activity/volume] in Serum or Plasma [facility] AST [Catalytic activity/Vol] 14 U/L Normal [facility] Comment on above: Performed By: #### M G, SCAN CBC, CMP #### [facility] [address] Basic Metabolic Panelon 05-0 Creatinine Clr Calc Pharmacy 59.79 Normal [facility] Comment on above: Performed By: #### M G, SCAN CBC, CMP #### [address] GFR/1.73 sq M.predicted MDRD (S/P/Bld) [Vol rate/Area] mL/min/{1.73_m2} Normal [facility] Comment on above: Performed By: #### M G, SCAN CBC, CMP #### [address] Basophils Auto (Bld) [#/Vol] Ordered By: Maru Hayes on 09-20-2024 Basophils (Bld) [#/Vol] Automated basophil count 0.0-0.2 [facility] Basophils [#/volume] in Bloo d by Automated countOrdered By: Maru Hayes on 09-20-2024 Basophils (Bld) [#/Vol] 0.1 10*3/uL Normal 0.0-0.2 [facility] Comment on above: Result Comment: PERF ORMED BY: [place] [address] PATHOLOGIST FILE SYSTEM INSTALLER HEBER SHANNON M.D. Performed By: #### M G, SCAN CBC, CMP #### [address] Basophils/100 WBC Auto (Bld) Ordered By: Maru Hayes on 09-20-2024 Basophils/100 WBC (Bld) Automated basophil % . [facility] Basophils/100 leukocytes in Blood by Automated countOrdered By: Maru Hayes on 09-20-2024 Basophils/100 WBC (Bld) 1.2 % Normal . [facility] Comment on above: Performed By: #### M G, SCAN CBC, CMP #### [address] Bilirubin Test strip Ql (U)O rdered By: Maru Hayes on 09-20-2024 Bilirubin Ql (U) Bilirubin.total [Presence] in Urine by Test strip Negative [facility] Bilirubin Ql (U) Negative Negative [facility] Bilirubin.direct [Mass/volum e] in Serum or PlasmaOrdered By: Maru Hayes on 09-20-2024 Bilirubin.direct [Mass/Vol] Bilirubin.direct [Mass/volume] in Serum or Plasma 0.03-0.18 [facility] Bilirubin.direct [Mass/Vol] 0.10 mg/dL 0.03-0.18 [facility] Bilirubin.total [Mass/volume ] in Serum or PlasmaOrdered By: Maru Hayes on 09-20-2024 Bilirubin [Mass/Vol] Bilirubin.total [Mass/volume] in Serum or Plasma 0.3-1.0 [facility] Bilirubin [Mass/Vol] 0.5 mg/dL Normal 0.3-1.0 [facility] Comment on above: Performed By: #### M G, SCAN CBC, CMP #### [address] abdomen pelvis w conon CT abdomen pelvis w con [facility] Main [place] [address] [place] [address] CT Scan Report Signed Patient: Jeremie Bennett MR#: [id number] 669 : 1940 Acct:[id number] Age/Sex: 83 / M ADM Date: 09/20/24 Loc: ER Room: Type: [facility] ER Attending Dr: Copies to: Maru Hayes [...] Gordon M.D. 09/20/2024 8:03 PM Dictation Location: [place] [address] Transcribed By: [facility] 09/20/242002 Dictated By: Rafi Gordon II, MD 09/20/241947 Signed By: 09/20/242002 Normal [facility] Calcium [Mass/volume] in Ser um or PlasmaOrdered By: Maru Hayes on 09-20-2024 Calcium [Mass/Vol] Calcium [Mass/volume ] in Serum or Plasma 8.6-10.3 [facility] Calcium [Mass/Vol] 9.5 mg/dL Normal 8.6-10.3 [facility] Comment on above: Performed By: #### M G, SCAN CBC, CMP #### [address] Carbon dioxide, total [Moles /volume] in Serum or PlasmaOrdered By: Maru Hayes on 09-20-2024 CO2 [Moles/Vol] Carbon dioxide, tota l [Moles/volume] in Serum or Plasma 21.0-31.0 [facility] CO2 [Moles/Vol] 26.8 mmol/L Normal 21.0-31.0 [facility] Comment on above: Performed By: #### M G, SCAN CBC, CMP #### [facility] [address] Chloride [Moles/volume] in S stephanie or PlasmaOrdered By: Maru Hayes on 09-20-2024 Chloride [Moles/Vol] Chloride [Moles/vol ume] in Serum or Plasma 98-107 [facility] Chloride [Moles/Vol] 104 mmol/L Normal 98-107 [facility] Comment on above: Performed By: #### M G, SCAN CBC, CMP #### [address] Color Auto (U)Ordered By: Ronald Hayes on 09-20-2024 Color (U) Color of Urine by Auto Yellow [facility] Color of Urine by AutoOrdere d By: Maru Hayes on 09-20-2024 Color (U) Light-yellow Normal Yellow [facility] Comment on above: Order Comment: Name Collection Type:: Clean-Voided Midstream Performed By: #### U A #### [address] Complete Blood Count Auto Di ffon 09-20-2024 Mean Corpuscular HGB Conc 33.3 g/dL Normal 32.5-35.6 [facility] Comment on above: Performed By: #### M G, SCAN CBC, CMP #### [facility] [address] [place] [address] [place] Monocytes/100 WBC (Bld) 22.62 % High 0.00-20.00 [facility] Comment on above: Result Comment: For adults in ED, MDW > 20.0 may be associated with a higher risk of sepsis during the first 12 hrs of hospital admission Performed By: #### M G, SCAN CBC, CMP #### [facility] [address] [place] [address] [place] NRBC% 0.0 /100{WBC} Normal 0-0.5 [facility] Comment on above: Performed By: #### M G, SCAN CBC, CMP #### [facility] [address] Creatinine [Mass/volume] in Serum or PlasmaOrdered By: Maru Hayes on 09-20-2024 Creatinine [Mass/Vol] Creatinine [Mass/v olume] in Serum or Plasma 0.70-1.30 [facility] Creatinine [Mass/Vol] 0.70 mg/dL Normal 0.70-1.30 [facility] Comment on above: Performed By: #### M G, SCAN CBC, CMP #### [facility] [address] ECG 12 lead ECGon 09-20-2024 ECG 12 lead ECG [facility] [place] [address] [place] [address] Electrocardiograph Report Signed Patient: Jeremie Bennett MR#: [id number] Acct:[id number] Age/Sex: 83 / M ADM Date: 09/20/24 Loc: ER Room: Type: [facility] ER Attending Dr: Ordering Provider: Maru Hayes [...] Abnormal ECG Confirmed by Maru Hayes MD ([id number]) on 09/20/2024 11:00:16 PM Referred By: Electronically Signed By: Maru Hayes MD Transcribed By: MUS Signed By Maru Hayes MD 12/08 2300 Normal [facility] Eosinophils Auto (Bld) [#/Vo l]Ordered By: Maru Hayes on 09-20-2024 Eosinophils (Bld) [#/Vol] Automated eosinophil count 0.0-0.45 [facility] Eosinophils [#/volume] in Bl ood by Automated countOrdered By: Maru Hayes on 09-20-2024 Eosinophils (Bld) [#/Vol] 0.3 10*3/uL Normal 0.0-0.45 [facility] Comment on above: Performed By: #### M G, SCAN CBC, CMP #### [facility] [address] Eosinophils/100 WBC Auto (Bl d)Ordered By: Maru Hayes on 09-20-2024 Eosinophils/100 WBC (Bld) Automated eosinophil % . [facility] Eosinophils/100 leukocytes i n Blood by Automated countOrdered By: Maru Hayes on 09-20-2024 Eosinophils/100 WBC (Bld) 2.5 % Normal . [facility] Comment on above: Performed By: #### M G, SCAN CBC, CMP #### [facility] [address] Erythrocyte distribution wid th Auto (RBC) [Ratio]Ordered By: Maru Hayes on 09-20-2024 Erythrocyte distribution width (RBC) [Ratio] Erythrocyte distribution width [Ratio] by Automated count High 12.0-14.8 [facility] Erythrocyte distribution wid th [Ratio] by Automated countOrdered By: Maru Hayes on 09-20-2024 Erythrocyte distribution width (RBC) [Ratio] 15.9 % High 12.0-14.8 [facility] Comment on above: Performed By: #### M G, SCAN CBC, CMP #### [facility] [address] Erythrocytes [#/volume] in B lood by Automated countOrdered By: Maru Hayes on 09-20-2024 RBC (Bld) [#/Vol] 3.85 10*6/uL Low 3.90-5.60 [facility] Comment on above: Performed By: #### M G, SCAN CBC, CMP #### [facility] [address] Globulin Calc (S) [Mass/Vol] Ordered By: Maru Hayes on 09-20-2024 Globulin (S) [Mass/Vol] Serum globulin measurement by calculation (mass/volume) [facility] Glucose [Mass/volume] in Ser um or PlasmaOrdered By: Maru Hayes on 09-20-2024 Glucose [Mass/Vol] Glucose [Mass/volume ] in Serum or Plasma High 70-100 [facility] Comment on above: ADA recommended refe rence rangeRandom Glucose Reference Range is dependent on time and content of last meal. Glucose of more than 200 mg/dL in a nonstressed, ambulatory subject supports the diagnosis of Diabetes Mellitus. Glucose [Mass/Vol] 105 mg/dL High 70-100 [facility] Comment on above: ADA recommended refe rence rangeRandom Glucose Reference Range is dependent on time and content of last meal. Glucose of more than 200 mg/dL in a nonstressed, ambulatory subject supports the diagnosis of Diabetes Mellitus. Result Comment: [place] Glucose Reference Range is dependent on time and content of last meal. Glucose of more than 200 mg/dL in a nonstressed, ambulatory subject supports the diagnosis of Diabetes Mellitus. ADA recommended reference range Performed By: #### M G, SCAN CBC, CMP #### [facility] [address] Glucose [Mass/volume] in Uri ne by Test stripOrdered By: Maru Hayes on 09-20-2024 Glucose Test strip (U) [Mass/Vol] Glucose [Mass/volume] in Urine by Test strip Normal [facility] Glucose Test strip (U) [Mass/Vol] Normal mg/dL Normal [facility] Hematocrit Auto (Bld) [Volum e fraction]Ordered By: Maru Hayes on 09-20-2024 Hematocrit (Bld) [Volume fraction] Hematocrit [Volume Fraction] of Blood by Automated count Low 38.8-50.0 [facility] Hematocrit [Volume Fraction] of Blood by Automated countOrdered By: Maru Hayes on 09-20-2024 Hematocrit (Bld) [Volume fraction] 35.3 % Low 38.8-50.0 [facility] Comment on above: Performed By: #### M G, SCAN CBC, CMP #### [facility] [address] [place] [address] Hemoglobin Test strip Ql (U) Ordered By: Maru Hayes on 09-20-2024 Hemoglobin Ql (U) Hemoglobin [Presence ] in Urine by Test strip Negative [facility] Hemoglobin Ql (U) Negative Negative [facility] Hemoglobin [Mass/volume] in BloodOrdered By: Maru Hayes on 09-20-2024 Hemoglobin (Bld) [Mass/Vol] Hemoglobin [Mass/volume] in Blood Low 13.0-17.0 [facility] Hemoglobin (Bld) [Mass/Vol] 11.8 g/dL Low 13.0-17.0 [facility] Comment on above: Performed By: #### M G, SCAN CBC, CMP #### [facility] [address] [place] [address] Hepatic Panelon 09-20-2024 Albumin [Mass/Vol] 3.5 g/dL Normal 3.5-5.7 [facility] Comment on above: Performed By: #### M G, SCAN CBC, CMP #### [address] Bilirubin,Indirect 0.4 mg/dL Normal [facility] Comment on above: Performed By: #### M G, SCAN CBC, CMP #### [address] Bilirubin.indirect [Mass/Vol] 0.10 mg/dL Normal 0.03-0.18 [facility] Comment on above: Performed By: #### M G, SCAN CBC, CMP #### [address] Ketones Test strip Ql (U)Ord ered By: Maru Hayes on 09-20-2024 Ketones Ql (U) Ketones [Presence] i n Urine by Test strip Negative [facility] Ketones [Presence] in Urine by Test stripOrdered By: Maru Hayes on 09-20-2024 Ketones Ql (U) Negative Normal Negative [facility] Comment on above: Order Comment: Name Collection Type:: Clean-Voided Midstream Performed By: #### U A #### [address] Leukocyte esterase [Presence ] in Urine by Test stripOrdered By: Maru Hayes on 09-20-2024 Leukocyte esterase Test strip Ql (U) Leukocyte esterase [Presence] in Urine by Test strip Negative [facility] Leukocyte esterase Test strip Ql (U) Negative Normal Negative [facility] Comment on above: Order Comment: Name Collection Type:: Clean-Voided Midstream Performed By: #### U A #### [facility] [address] [place] [address] Leukocytes [#/volume] correc suzy for nucleated erythrocytes in Blood by Automated counOrdered By: Maru Hayes on 09-20-2024 WBC corrected for nucl RBC Auto (Bld) [#/Vol] Leukocytes [#/volume] corrected for nucleated erythrocytes in Blood by Automated coun High 4.1-10.5 [facility] WBC corrected for nucl RBC Auto (Bld) [#/Vol] 11.2 10*3/uL High 4.1-10.5 [facility] Leukocytes [#/volume] in Blo od by Automated countOrdered By: Maru Hayes on 09-20-2024 WBC (Bld) [#/Vol] 11.2 10*3/uL High 4.1-10.5 [facility] Comment on above: Performed By: #### M G, SCAN CBC, CMP #### [place] [address] [place] Lipase [Enzymatic activity/v olume] in Serum or PlasmaOrdered By: Maru Hayes on 09-20-2024 Lipase [Catalytic activity/Vol] Lipase [Enzymatic activity/volume] in Serum or Plasma 11.0-82.0 [facility] Lipase [Catalytic activity/Vol] 34.0 U/L Normal 11.0-82.0 [facility] Comment on above: Result Comment: PERF ORMED BY: [place] [address] PATHOLOGIST FILE SYSTEM INSTALLER HEBER SHANNON M.D. Performed By: #### M G, SCAN CBC, CMP #### [address] Lymphocytes Auto (Bld) [#/Vo l]Ordered By: Maru Hayes on 09-20-2024 Lymphocytes (Bld) [#/Vol] Lymphocytes [#/volume] in Blood by Automated count 1.00-4.8 [facility] Lymphocytes [#/volume] in Bl ood by Automated countOrdered By: Maru Hayes on 09-20-2024 Lymphocytes (Bld) [#/Vol] 2.8 10*3/uL Normal 1.00-4.8 [facility] Comment on above: Performed By: #### M G, SCAN CBC, CMP #### [facility] [address] Lymphocytes/100 WBC Auto (Bl d)Ordered By: Maru Hayes on 09-20-2024 Lymphocytes/100 WBC (Bld) Lymphocytes/100 leukocytes in Blood by Automated count . [facility] Lymphocytes/100 leukocytes i n Blood by Automated countOrdered By: Maru Hayes on 09-20-2024 Lymphocytes/100 WBC (Bld) 24.8 % Normal . [facility] Comment on above: Performed By: #### M G, SCAN CBC, CMP #### [facility] [address] MCH Auto (RBC) [Entitic mass ]Ordered By: Maru Hayes on 09-20-2024 MCH (RBC) [Entitic mass] MCH [Entitic mass] by Automated count 27.5-35.2 [facility] MCH [Entitic mass] by Automa suzy countOrdered By: Maru Hayes on 09-20-2024 MCH (RBC) [Entitic mass] 30.5 pg Normal 27.5-35.2 [facility] Comment on above: Performed By: #### M G, SCAN CBC, CMP #### [facility] [address] MCHC Auto (RBC) [Mass/Vol]Or dered By: Maru Hayes on 09-20-2024 MCHC (RBC) [Mass/Vol] MCHC [Mass/volume] by Automated count 32.5-35.6 [facility] MCHC (RBC) [Mass/Vol] 33.3 g/dL 32.5-35.6 [facility] MCV Auto (RBC) [Entitic vol] Ordered By: Maru Hayes on 09-20-2024 MCV (RBC) [Entitic vol] MCV [Entitic volume] by Automated count 83.5-101 [facility] MCV [Entitic volume] by Auto mated countOrdered By: Maru Hayes on 09-20-2024 MCV (RBC) [Entitic vol] 91.7 fL Normal 83.5-101 [facility] Comment on above: Performed By: #### M G, SCAN CBC, CMP #### [facility] [address] [place] [address] [place] Monocyte distribution width [Entitic volume] in Blood by AutomatedOrdered By: Maru Hayes on 09-20-2024 Monocyte distribution width Auto (Bld) [Entitic vol] Monocyte distribution width [Entitic volume] in Blood by Automated High 0.00-20.00 [facility] Comment on above: For adults in ED, MD W > 20.0 may be associated with a higher risk of sepsis during the first 12 hrs of hospital admission Monocyte distribution width Auto (Bld) [Entitic vol] 22.62 % High 0.00-20.00 [facility] Comment on above: For adults in ED, MD W > 20.0 may be associated with a higher risk of sepsis during the first 12 hrs of hospital admission Monocytes Auto (Bld) [#/Vol] Ordered By: Maru Hayes on 09-20-2024 Monocytes (Bld) [#/Vol] Automated blood monocyte count 0.0-0.8 [facility] Monocytes [#/volume] in Bloo d by Automated countOrdered By: Maru Hayes on 09-20-2024 Monocytes (Bld) [#/Vol] 0.8 10*3/uL Normal 0.0-0.8 [facility] Comment on above: Performed By: #### M G, SCAN CBC, CMP #### [facility] [address] [place] [address] [place] Monocytes/100 WBC Auto (Bld) Ordered By: Maru Hayes on 09-20-2024 Monocytes/100 WBC (Bld) Automated monocyte % . [facility] Monocytes/100 leukocytes in Blood by Automated countOrdered By: Maru Hayes on 09-20-2024 Monocytes/100 WBC (Bld) 7.2 % Normal . [facility] Comment on above: Performed By: #### M G, SCAN CBC, CMP #### [facility] [address] [place] [address] [place] Neutrophils Auto (Bld) [#/Vo l]Ordered By: Maru Hayes on 09-20-2024 Neutrophils (Bld) [#/Vol] Neutrophils [#/volume] in Blood by Automated count 1.8-7.7 [facility] Neutrophils [#/volume] in Bl ood by Automated countOrdered By: Maru Hayes on 09-20-2024 Neutrophils (Bld) [#/Vol] 7.2 10*3/uL Normal 1.8-7.7 [facility] Comment on above: Performed By: #### M G, SCAN CBC, CMP #### [facility] [address] [place] [address] [place] Neutrophils/100 WBC Auto (Bl d)Ordered By: Maru Hayes on 09-20-2024 Neutrophils/100 WBC (Bld) Automated neutrophil % . [facility] Neutrophils/100 leukocytes i n Blood by Automated countOrdered By: Maru Hayes on 09-20-2024 Neutrophils/100 WBC (Bld) 64.3 % Normal . [facility] Comment on above: Performed By: #### M G, SCAN CBC, CMP #### [facility] [address] [place] [address] Nitrite Test strip Ql (U)Ord ered By: Maru Hayes on 09-20-2024 Nitrite Ql (U) Nitrite [Presence] i n Urine by Test strip Negative [facility] Nitrite Ql (U) Negative Negative [facility] No Panel InformationOrdered By: Maru Hayes on 09-20-2024 Estimated GFR (CKD-EPI) > 60.0 mL/Min [facility] Creatinine Clearance (Chem 59.79 [facility] Nucleated erythrocytes [Pres ence] in Blood by Automated countOrdered By: Maru Hayes on 09-20-2024 Nucleated RBC Auto Ql (Bld) Nucleated erythrocytes [Presence] in Blood by Automated count 0-0.5 [facility] Nucleated RBC Auto Ql (Bld) 0.0 /100{WBC} 0-0.5 [facility] Platelet mean volume Auto (B ld) [Entitic vol]Ordered By: Maru Hayes on 09-20-2024 Platelet mean volume (Bld) [Entitic vol] Platelet mean volume [Entitic volume] in Blood by Automated count 6.6-10.1 [facility] Platelet mean volume [Entiti c volume] in Blood by Automated countOrdered By: Maru Hayes on 09-20-2024 Platelet mean volume (Bld) [Entitic vol] 8.3 fL Normal 6.6-10.1 [facility] Comment on above: Performed By: #### M G, SCAN CBC, CMP #### [facility] [address] Platelets Auto (Bld) [#/Vol] Ordered By: Maru Hayes on 09-20-2024 Platelets (Bld) [#/Vol] Platelets [#/volume] in Blood by Automated count 150-450 [facility] Platelets [#/volume] in Bloo d by Automated countOrdered By: Maru Hayes on 09-20-2024 Platelets (Bld) [#/Vol] 226 10*3/uL Normal 150-450 [facility] Comment on above: Performed By: #### M G, SCAN CBC, CMP #### [facility] [address] 09-21-19 [facility] Case Information Case Priority: None Programs: -- Referral Source: Staff [employer] Officer Referral Reason: Care coordination Case Type: Transition [...] to opioid therapy Coronary artery disease involving cocopah coronary artery of cocopah heart without angina pectoris Diabetic autonomic neuropathy [...] patch(es), Topical, q72hr fluticasone Nasal 0.05 mg/inh [place], See Instructions furosemide 20 mg Tab, 20 [...] a US of the liver at OV 5/, but he has not heard from [facility], a message sent to clinical for f/u. Patient denies any further questions or concerns. Communication Events Date: September 20, 2024 Method: Phone call Type: Outbound Duration (min): 3 Outcome: Case discussion Contact Type: Patient Contact Name: B (more content not included)... Normal [facility] Potassium [Moles/volume] in Serum or PlasmaOrdered By: Maru Hayes on 09-20-2024 Potassium [Moles/Vol] Potassium [Moles/v olume] in Serum or Plasma 3.5-5.1 [facility] Potassium [Moles/Vol] 4.0 mmol/L Normal 3.5-5.1 [facility] Comment on above: Performed By: #### M G, SCAN CBC, CMP #### [address] Protein Test strip (U) [Mass /Vol]Ordered By: Maru Hayes on 09-20-2024 Protein (U) [Mass/Vol] Protein [Mass/vol ume] in Urine by Test strip Negative [facility] Protein (U) [Mass/Vol] Negative Negative [facility] Protein [Mass/volume] in Ser um or PlasmaOrdered By: Maru Hayes on 09-20-2024 Protein [Mass/Vol] Protein [Mass/volume ] in Serum or Plasma 6.4-8.9 [facility] Protein [Mass/Vol] 6.4 g/dL Normal 6.4-8.9 [facility] Comment on above: Performed By: #### M G, SCAN CBC, CMP #### [facility] [address] [place] [address] RBC Auto (Bld) [#/Vol]Ordere d By: Maru Hayes on 09-20-2024 RBC (Bld) [#/Vol] Erythrocytes [#/volu me] in Blood by Automated count Low 3.90-5.60 [facility] Serum globulin measurement b y calculation (mass/volume)Ordered By: Maru Hayes on 09-20-2024 Globulin (S) [Mass/Vol] 2.9 g/dL Normal [facility] Comment on above: Performed By: #### M G, SCAN CBC, CMP #### [address] Serum or plasma albumin/glob ulin mass ratioOrdered By: Maru Hayes on 09-20-2024 Albumin/Globulin [Mass ratio] Serum or plasma albumin/globulin mass ratio [facility] Albumin/Globulin [Mass ratio] 1.2 {ratio} Normal [facility] Comment on above: Performed By: #### M G, SCAN CBC, CMP #### [facility] [address] Serum or plasma anion gap de terminationOrdered By: Maru Hayes on 09-20-2024 Anion gap [Moles/Vol] Serum or plasma an ion gap determination 6.0-15.0 [facility] Anion gap [Moles/Vol] 10.2 mmol/L Normal 6.0-15.0 [facility] Comment on above: Performed By: #### M G, SCAN CBC, CMP #### [facility] [address] Serum or plasma non-glucuron idated bilirubin measurement (mass/volume)Ordered By: Maru Hayes on 09-20-2024 Bilirubin.indirect [Mass/Vol] Serum or plasma non-glucuronidated bilirubin measurement (mass/volume) [facility] Bilirubin.indirect [Mass/Vol] 0.4 mg/dL [facility] Sodium [Moles/volume] in Ser um or PlasmaOrdered By: Maru Hayes on 09-20-2024 Sodium [Moles/Vol] Sodium [Moles/volume ] in Serum or Plasma 136-145 [facility] Sodium [Moles/Vol] 137 mmol/L Normal 136-145 [facility] Comment on above: Performed By: #### M G, SCAN CBC, CMP #### [facility] [address] Specific gravity Test strip (U) [Rel density]Ordered By: Maru Hayes on 09-20-2024 Specific gravity (U) [Rel density] Specific gravity of Urine by Test strip High 1.001-1.03 0 [facility] Specific gravity (U) [Rel density] 1.039 High 1.001-1.03 0 [facility] Troponin I High Sensitivityo n 09-20-2024 Troponin I High Sensitivity 7 Normal 0-20 [facility] Comment on above: Result Comment: The Troponin units of report have been changed to meet the Chest Pain Accreditation requirement, element EC5.M1l2. Troponin units are changed from pg/ml to ng/L. Also, the decimal is removed and results are in whole numbers. PERFORMED BY: [place] [address] PATHOLOGIST FILE SYSTEM INSTALLER HEBER SHANNON M.D. Performed By: #### H S TROP #### [facility] [address] [place] [address] Troponin I.cardiac [Mass/vol ume] in Serum or Plasma by Detection limit <= 0.01 ng/Ordered By: Maru Hayes on 09-20-2024 Troponin I.cardiac DL <= 0.01 ng/mL [Mass/Vol] Troponin I.cardiac [Mass/volume] in Serum or Plasma by Detection limit <= 0.01 ng/ 0 [facility] Comment on above: The Troponin units o [...] DL <= 0.01 ng/mL [Mass/Vol] 7 ng/L [facility] Comment on above: The Troponin units o f report have been changed to meet the Chest Pain Accreditation requirement, element EC5.M1l2. Troponin units are changed from pg/ml to ng/L. Also, the decimal is removed and results are in whole numbers. Urea nitrogen [Mass/volume] in Serum or PlasmaOrdered By: Maru Hayes on 09-20-2024 Urea nitrogen [Mass/Vol] Urea nitrogen [Mass/volume] in Serum or Plasma 12-08 [facility] Urea nitrogen [Mass/Vol] 20 mg/dL Normal 12-08 [facility] Comment on above: Performed By: #### M G, SCAN CBC, CMP #### [facility] [address] [place] [address] Urinalysison 09-20-2024 Bilirubin,Urine Negative Normal Negative [facility] Comment on above: Order Comment: Name Collection Type:: Clean-Voided Midstream Performed By: #### U A #### [address] Glucose Ql (U) Normal Normal Normal [facility] Comment on above: Order Comment: Name Collection Type:: Clean-Voided Midstream Performed By: #### U A #### [address] Nitrite,Urine Negative Normal Negative [facility] Comment on above: Order Comment: Name Collection Type:: Clean-Voided Midstream Performed By: #### U A #### [address] Occult Blood,Urine Negative Normal Negative [facility] Comment on above: Order Comment: Name Collection Type:: Clean-Voided Midstream Result Comment: PERF ORMED BY: [place] [address] PATHOLOGIST FILE SYSTEM INSTALLER HEBER SHANNON M.D. Performed By: #### U A #### [address] Protein,Urine Negative Normal Negative [facility] Comment on above: Order Comment: Name Collection Type:: Clean-Voided Midstream Performed By: #### U A #### [address] Specificy [place],Urine 1.039 High 1.001-1.03 0 [facility] Comment on above: Order Comment: Name Collection Type:: Clean-Voided Midstream Performed By: #### U A #### [address] Urobilinogen,Urine Normal Normal Normal [facility] Comment on above: Order Comment: Name Collection Type:: Clean-Voided Midstream Performed By: #### U A #### [address] Urobilinogen Test strip (U) [Mass/Vol]Ordered By: Maru Hayes on 09-20-2024 Urobilinogen (U) [Mass/Vol] Urobilinogen [Mass/volume] in Urine by Test strip Normal [facility] Urobilinogen (U) [Mass/Vol] Normal mg/dL Normal [facility] WBC Auto (Bld) [#/Vol]Ordere d By: Maru Hayes on 09-20-2024 WBC (Bld) [#/Vol] Leukocytes [#/volume ] in Blood by Automated count High 4.1-10.5 [facility] pH Test strip (U)Ordered By: Maru Hayes on 09-20-2024 pH (U) pH of Urine by Test strip 5.0-9.0 [facility] pH of Urine by Test stripOrd ered By: Maru Hayes on 09-20-2024 pH (U) 5.0 [pH] Normal 5.0-9.0 [facility] Comment on above: Order Comment: Name Collection Type:: Clean-Voided Midstream Performed By: #### U A #### [address] Ambulatory Visit Summaryon 0 09-14-2024 Ambulatory [...] Film) fluticasone nasal (fluticasone Nasal 0.05 mg/inh [place]) furosemide (furosemide 20 mg Tab) irbesartan (irbesartan [...] PM EDT With: Demetrius Cooper MD Where: [address] [address]- Wednesday 2:30 PM EDT With: Where: [address] [address]- Wednesday 3:20 PM EDT With: Demetrius Cooper MD Where: [address] [address]- Medications What How Much When [...] fluticasone nasal (fluticasone Nasal 0.05 mg/ inh [place]) See instructions USE 1 SPRAY IN BOTH [...] pain Cervic (more content not included)... Normal [facility] Medicine Office/Clini c Noteon 09-14-2024 Family Medicine [...] to opioid therapy Coronary artery disease involving cocopah coronary artery of cocopah heart without angina pectoris Diabetic autonomic neuropathy [...] Cholecystectomy, Co (more content not included)... 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 Reason: Care coordination Case Type: Transition [...] to opioid therapy Coronary artery disease involving cocopah coronary artery of cocopah heart without angina pectoris Diabetic autonomic neuropathy [...] patch(es), Topical, q72hr fluticasone Nasal 0.05 mg/inh [place], See Instructions furosemide 20 mg Tab, 20 mg= 1 tab(s), Oral, Daily Hc/Dph/Nystat/Lido/[place] Monsalve irbesartan 300 mg Tab, 300 mg= 1 tab(s), Oral, Daily isosorbide mononitrate, 30 mg, Oral, qAM latanoprost Opth 0.005% Janee metformin 500 mg ER Tab, 500 mg= 1 tab(s), Oral, Daily [facility], See Instructions Misc DME Prescription, [...] mg= 1 tab(s), Oral, Daily Potassium Chloride (Lcm-Jore-Cxb M20) 20 mEq oral tablet, extended release [...] magic peggy (more content not included)... Normal [facility] C Urineon 09-01-2024 Bacteria identified Cx Nom (U) Microbiology PROCEDURE: Urine Culture [R1] SOURCE: U Random BODY SITE: COLLECTED DATE/TIME: 08/30/2024 10:11 EDT RECEIVED DATE/TIME: 08/30/2024 18:09 EDT START DATE/TIME: 08/30/2024 18:09 EDT FREE TEXT SOURCE: Yajaira Dunn Jodi L FINAL REPORTS Final Report [] Verified Date/Time: 09/01/2024 10:22 EDT 200 cfu/ml Mixed skin contaminants Performing Locations R1: This test was performed at: [facility], [address] [place] [address], [id number] , [place], [facility] Comment on above: Performed By: #### 2 [id number] #### [facility] [address] [place] [id number] Ambulatory Visit Summaryon 0 08-30-2024 Ambulatory Visit [...] Film) fluticasone nasal (fluticasone Nasal 0.05 mg/inh [place]) furosemide (furosemide 20 mg Tab) irbesartan (irbesartan [...] mL oral solution) potassium chloride (Potassium Chloride (Nkn-Tjai-Elk M20) 20 mEq oral tablet, extended release) [...] Appointments Wednesday 2:30 PM EDT With: Where: [address] [address]- Wednesday 3:20 PM EDT With: Hermes CASON, Demetrius Rosa Where: [address] [address]- Medications What How Much When Instructions Unchanged [...] fluticasone nasal (fluticasone Nasal 0.05 mg/ inh [place]) See instructions USE 1 SPRAY IN BOTH [...] ondansetron (onda (more content not included)... Normal [facility] Family Medicine Office/Clini c Noteon 08-30-2024 Family [...] Urnls Dip Stick Auto w/o Microscopy POC 65508 2. Urinary hesitancy (R39.11: Hesitancy of micturition) [...] to opioid therapy Coronary artery disease involving cocopah coronary artery of cocopah heart without angina pectoris Diabetic autonomic neuropathy [...] patch(es), Topical, q72hr fluticasone Nasal 0.05 mg/inh [place], See Instructions furosemide 20 mg Tab, 20 [...] Chloride (Eq (more content not included)... Normal [facility] Comment on above: Result Comment: Elec tronically Signed By: Yajaira Dunn.marco a\Date and Time Signed: 08/30/24 10:45 EDT Family Medicine Office/Clini c Noteon 08-24-2024 Family Medicine Office/Clinic Note Family Medicine Office/Clinic Note Chief Complaint TCM follow up The patient presents with concerns related to chemotherapy and radiation treatment for oropharyngeal carcinoma. HPI Staff Pt presents today for TCM follow up [facility] [facility] Visit date: 08/19/24 Symptoms the patient presented [...] TCM Trans care mgmt 7 day disch [id number] 2. Aspiration pneumonia (J69.0: Pneumonitis due to inhalation of food and vomit) Patient improved after antibiotic treatment for aspiration pneumonia. Monitor respiratory status and nutritional challenges affecting swallowing. Ordered: Cardiac Rehab - Ambulatory Referral TCM Trans care mgmt 7 day disch [id number] 3. 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 Plan imaging for therapy assessment within three months. Focus on resolving sore throat impacting nutrition. Ordered: Cardiac Rehab - Ambulatory Referral TCM Trans care mgmt 7 day disch [id number] 4. 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 Schedule appropriate follow-up tests to monitor oncologic treatment outcomes. Ordered: Cardiac Rehab - Ambulatory Referral TCM Trans care mgmt 7 day disch [id number] 5. Immunosuppression (D84.9: Immunodeficiency, unspecified) Continue to see oncology Ordered: Cardiac Rehab - Ambulatory Referral TCM Trans care mgmt 7 day disch [id number] 6. 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 Evaluate non-opioid pain relief methods if feasible. Ordered: TCM Trans care mgmt 7 day disch [id number] 7. Nausea (R11.0: Nausea) NO issues at this time. Ordered: TCM Trans care mgmt 7 day disch [id number] 8. BMI 27.0-27.9,adult (Z68.27: Body mass index [BMI] 27.0-27.9, adult) BMI education adde (more content not included)... Normal [facility] Comment on above: Result Comment: Elec tronically Signed By: Demetrius Cooper MD\.br\Date and Time Signed: 08/24/24 09:00 EDT Pre-Visit Planningon 025 Pre-Visit Planning Pre-Visit Planning From: Bobbi Hall To: Demetrius Cooper MD; Sent: 08/23/2024 16:27:25 EDT Subject: Pre-Visit Planning Due Date/Time: 08/23/2024 16:27:00 EDT Caller Name: JEREMIE BENNETT; Caller Number: , Ri Dr. Cooper. During a pre-visit planning chart [...] feel free to contact me at extension [phone]. Thank you! Bobbi Hall LPN Clinical Cup Trimming Machine Operator [address] [address] Extension: [phone] [email or web address] From: Demetrius Cooper MD To: Bobbi Hall; Sent: 08/24/2024 11:34:18 EDT Subject: RE: Pre-Visit Planning Caller Name: JEREMIE BENNETT; Caller Number: Jane , Adrian Please add Normal [facility] Population Healthon 08-23-19 [facility] Case Information Case Priority: None Programs: -- Referral Source: Staff Submarine Warfare Officer Referral Reason: Care coordination Case Type: Transition Care Management Risk Score: -- Case Status: Enrolled (August 22, 2024) Date Assigned: August 22, 2024 Assigned By: Galileo Tucker Date Enrolled: August 22, 2024 Assigned Primary Personnel: Galileo Tucker Assigned Secondary Personnel: -- Case Physician: Demetrius Cooper MD Problems Ongoing Bloating BMI 29.0-29.9,adult Cervical lymphadenopathy Cervical spondylosis Chronic GERD Coronary artery disease involving cocopah coronary artery of cocopah heart without angina pectoris Diabetic autonomic neuropathy [...] patch(es), Topical, q72hr fluticasone Nasal 0.05 mg/inh [place], See Instructions furosemide 20 mg Tab, 20 mg= 1 tab(s), Oral, Daily Hc/Dph/Nystat/Lido/[place] Monsalve irbesartan 300 mg Tab, 300 mg= 1 tab(s), Oral, Daily isosorbide mononitrate, 30 mg, Oral, qAM latanoprost Opth 0.005% Janee metformin 500 mg ER Tab, 500 mg= 1 tab(s), Oral, Daily [facility], See Instructions [facility], See Instructions [facility] [place] Multivitamin, Therapeutic w/ Minerals, Oral, Daily [...] Progress Note Admit Date: 08[place]20/[place] [facility] Date of Discharge: 08/21/24 Follow-up appointment scheduled? yes, Dr. Cooper [facility] f/u 08/24/24 at 0745 Did you [...] swallow Ar (more content not included)... Normal [facility] Alanine aminotransferase [En zymatic activity/volume] in Serum or PlasmaOrdered By: Jaiden Nance on 08-21-2024 ALT [Catalytic activity/Vol] Alanine aminotransferase [Enzymatic activity/volume] in Serum or Plasma [facility] Albumin [Mass/volume] in Ser um or Plasma by Bromocresol green (BCG) dye binding methoOrdered By: Jaiden Nance on 08-21-2024 Albumin BCG dye [Mass/Vol] Albumin [Mass/volume] in Serum or Plasma by Bromocresol green (BCG) dye binding metho Low 3.5-5.7 [facility] Alkaline phosphatase [Enzyma tic activity/volume] in Serum or PlasmaOrdered By: Jaiden Nance on 08-21-2024 ALP [Catalytic activity/Vol] Alkaline phosphatase [Enzymatic activity/volume] in Serum or Plasma 34-104 [facility] Aspartate aminotransferase [ Enzymatic activity/volume] in Serum or PlasmaOrdered By: Jaiden Nance on 08-21-2024 AST [Catalytic activity/Vol] Aspartate aminotransferase [Enzymatic activity/volume] in Serum or Plasma 13-39 [facility] Basophils Auto (Bld) [#/Vol] Ordered By: Jaiden Nance on 08-21-2024 Basophils (Bld) [#/Vol] Automated basophil count 0.0-0.2 [facility] Basophils/100 WBC Auto (Bld) Ordered By: Jaiden Nance on 08-21-2024 Basophils/100 WBC (Bld) Automated basophil % . [facility] Bilirubin.total [Mass/volume ] in Serum or PlasmaOrdered By: Jaiden Nance on 08-21-2024 Bilirubin [Mass/Vol] Bilirubin.total [Mass/volume] in Serum or Plasma 0.3-1.[address] [facility] [address] chest wo conon 08-21-2024 CT chest wo con [facility] [place] [address] CT Scan Report Signed Patient: Jeremie Bennett MR#: [id number] : 1940 Acct:[id number] Age/Sex: 83 / M ADM Date: 08/20/24 Loc: Room: [address] [place] [address] Type: ADM IN Attending Dr: Jaiden Nance [...] Christian Melton M.D.08/21/2024 5:58 AM Dictation Location: [place] [address] Transcribed By: [facility] 08/21/24 0558 Dictated By: Christian Melton DO 08/21/24 0555 Signed By: 08/21/24 0558 Normal [facility] Calcium [Mass/volume] in Ser um or PlasmaOrdered By: Jaiden Nance on 08-21-2024 Calcium [Mass/Vol] Calcium [Mass/volume ] in Serum or Plasma Low 8.6-10.3 [facility] Carbon dioxide, total [Moles /volume] in Serum or PlasmaOrdered By: Jaiden Nance on 08-21-2024 CO2 [Moles/Vol] Carbon dioxide, tota l [Moles/volume] in Serum or Plasma 21.0-31.0 [facility] Chloride [Moles/volume] in S stephanie or PlasmaOrdered By: Jaiden Nance on 08-21-2024 Chloride [Moles/Vol] Chloride [Moles/vol ume] in Serum or Plasma High 98-107 [facility] Complete Blood Count Auto Di ffon 08-21-2024 Basophils (Bld) [#/Vol] 0.0 10*3/uL Normal 0.0-0.2 [facility] Comment on above: Result Comment: PERF ORMED BY: [facility] [address] [place] [address] PATHOLOGIST FILE SYSTEM INSTALLER HEBER SHANNON M.D. Performed By: #### U A #### [address] Basophils/100 WBC (Bld) 0.6 % Normal . [facility] Comment on above: Performed By: #### U A #### [address] Eosinophils (Bld) [#/Vol] 0.1 10*3/uL Normal 0.0-0.45 [facility] Comment on above: Performed By: #### U A #### [address] Eosinophils/100 WBC (Bld) 1.0 % Normal . [facility] Comment on above: Performed By: #### U A #### [address] Erythrocyte distribution width (RBC) [Ratio] 14.8 % Normal 12.0-14.8 [facility] Comment on above: Performed By: #### U A #### [address] Hematocrit (Bld) [Volume fraction] 30.5 % Low 38.8-50.0 [facility] Comment on above: Performed By: #### U A #### [address] Hemoglobin (Bld) [Mass/Vol] 10.4 g/dL Low 13.0-17.0 [facility] Comment on above: Performed By: #### U A #### [address] Lymphocytes (Bld) [#/Vol] 0.6 10*3/uL Low 1.00-4.8 [facility] Comment on above: Performed By: #### U A #### [address] Lymphocytes/100 WBC (Bld) 9.0 % Normal . [facility] Comment on above: Performed By: #### U A #### [address] MCH (RBC) [Entitic mass] 31.3 pg Normal 27.5-35.2 [facility] Comment on above: Performed By: #### U A #### [address] MCV (RBC) [Entitic vol] 91.6 fL Normal 83.5-101 [facility] Comment on above: Performed By: #### U A #### [address] Mean Corpuscular HGB Conc 34.2 g/dL Normal 32.5-35.6 [facility] Comment on above: Performed By: #### U A #### [address] Monocytes (Bld) [#/Vol] 0.8 10*3/uL Normal 0.0-0.8 [facility] Comment on above: Performed By: #### U A #### [address] Monocytes/100 WBC (Bld) 13.6 % Normal . [facility] Comment on above: Performed By: #### U A #### [address] Neutrophils (Bld) [#/Vol] 4.7 10*3/uL Normal 1.8-7.7 [facility] Comment on above: Performed By: #### U A #### [address] Neutrophils/100 WBC (Bld) 75.8 % Normal . [facility] Comment on above: Performed By: #### U A #### [address] NRBC% 0.1 /100{WBC} Normal 0-0.5 The [facility] Comment on above: Performed By: #### U A #### [address] Platelet mean volume (Bld) [Entitic vol] 8.2 fL Normal 6.6-10.1 The [facility] Comment on above: Performed By: #### U A #### [address] Platelets (Bld) [#/Vol] 190 10*3/uL Normal 150-450 [facility] Comment on above: Performed By: #### U A #### [address] RBC (Bld) [#/Vol] 3.33 10*6/uL Low 3.90-5.60 [facility] Comment on above: Performed By: #### U A #### [address] WBC (Bld) [#/Vol] 6.2 10*3/uL Normal 4.1-10.5 The [facility] Comment on above: Performed By: #### U A #### [address] Comprehensive Metabolic Pane obdulio 08-21-2024 Albumin [Mass/Vol] 2.9 g/dL Low 3.5-5.7 The [facility] Comment on above: Performed By: #### U A #### [address] Albumin/Globulin [Mass ratio] 1.2 {ratio} Normal [facility] Comment on above: Performed By: #### U A #### [address] ALP [Catalytic activity/Vol] 52 U/L Normal 34-104 [facility] Comment on above: Performed By: #### U A #### [address] ALT [Catalytic activity/Vol] 14 U/L Normal 7-52 [facility] Comment on above: Performed By: #### U A #### [address] Anion gap [Moles/Vol] 9.1 mmol/L Normal 6.0-15.0 [facility] Comment on above: Performed By: #### U A #### [address] AST [Catalytic activity/Vol] 15 U/L Normal 13-39 [facility] Comment on above: Performed By: #### U A #### [address] Bilirubin [Mass/Vol] 0.6 mg/dL Normal 0.3-1.0 [facility] Comment on above: Performed By: #### U A #### [address] Calcium [Mass/Vol] 8.2 mg/dL Low 8.6-10.3 The [facility] Comment on above: Performed By: #### U A #### [address] Chloride [Moles/Vol] 108 mmol/L High 98-107 [facility] Comment on above: Performed By: #### U A #### [address] CO2 [Moles/Vol] 24.2 mmol/L Normal 21.0-31.0 The [facility] Comment on above: Performed By: #### U A #### [address] Creatinine [Mass/Vol] 0.75 mg/dL Normal 0.70-1.30 [facility] Comment on above: Performed By: #### U A #### [address] Creatinine Clr Calc Pharmacy 59.79 Normal [facility] Comment on above: Performed By: #### U A #### [address] GFR/1.73 sq M.predicted MDRD (S/P/Bld) [Vol rate/Area] mL/min/{1.73_m2} Normal [facility] Comment on above: Performed By: #### U A #### [address] Globulin (S) [Mass/Vol] 2.4 g/dL Normal [facility] Comment on above: Performed By: #### U A #### [address] Glucose [Mass/Vol] 94 mg/dL Normal 70-100 The [facility] Comment on above: Result Comment: [place] Glucose Reference Range is dependent on time and content of last meal. Glucose of more than 200 mg/dL in a nonstressed, ambulatory subject supports the diagnosis of Diabetes Mellitus. ADA recommended reference range Performed By: #### U A #### [address] Potassium [Moles/Vol] 3.3 mmol/L Low 3.5-5.1 [facility] Comment on above: Performed By: #### U A #### [address] Protein [Mass/Vol] 5.3 g/dL Low 6.4-8.9 The [facility] Comment on above: Performed By: #### U A #### [address] Sodium [Moles/Vol] 138 mmol/L Normal 136-145 The [facility] Comment on above: Performed By: #### U A #### [address] Urea nitrogen [Mass/Vol] 10 mg/dL Normal 7-25 [facility] Comment on above: Performed By: #### U A #### [place] [address] [place] Creatinine [Mass/volume] in Serum or PlasmaOrdered By: Jaiden Nance on 08-21-2024 Creatinine [Mass/Vol] Creatinine [Mass/v olume] in Serum or Plasma 0.70-1.30 [facility] Eosinophils Auto (Bld) [#/Vo l]Ordered By: Jaiden Nance on 08-21-2024 Eosinophils (Bld) [#/Vol] Automated eosinophil count 0.0-0.45 [facility] Eosinophils/100 WBC Auto (Bl d)Ordered By: Jaiden Nance on 08-21-2024 Eosinophils/100 WBC (Bld) Automated eosinophil % . [facility] Erythrocyte distribution wid th Auto (RBC) [Ratio]Ordered By: Jaiden Nance on 08-21-2024 Erythrocyte distribution width (RBC) [Ratio] Erythrocyte distribution width [Ratio] by Automated count 12.0-14.8 [facility] Globulin Calc (S) [Mass/Vol] Ordered By: Jaiden Nance on 08-21-2024 Globulin (S) [Mass/Vol] Serum globulin measurement by calculation (mass/volume) [facility] Glucose [Mass/volume] in Ser um or PlasmaOrdered By: Jaiden Nance on 08-21-2024 Glucose [Mass/Vol] Glucose [Mass/volume ] in Serum or Plasma 70-100 [facility] Comment on above: ADA recommended refe rence rangeRandom Glucose Reference Range is dependent on time and content of last meal. Glucose of more than 200 mg/dL in a nonstressed, ambulatory subject supports the diagnosis of Diabetes Mellitus. Hematocrit Auto (Bld) [Volum e fraction]Ordered By: Jaiden Nance on 08-21-2024 Hematocrit (Bld) [Volume fraction] Hematocrit [Volume Fraction] of Blood by Automated count Low 38.8-50.0 [facility] Hemoglobin [Mass/volume] in BloodOrdered By: Jaiden Nance on 08-21-2024 Hemoglobin (Bld) [Mass/Vol] Hemoglobin [Mass/volume] in Blood Low 13.0-17.0 [facility] Leukocytes [#/volume] correc suzy for nucleated erythrocytes in Blood by Automated counOrdered By: Jaiden Nance on 08-21-2024 WBC corrected for nucl RBC Auto (Bld) [#/Vol] Leukocytes [#/volume] corrected for nucleated erythrocytes in Blood by Automated coun 4.1-10.5 [facility] Lymphocytes Auto (Bld) [#/Vo l]Ordered By: Jaiden Nance on 08-21-2024 Lymphocytes (Bld) [#/Vol] Lymphocytes [#/volume] in Blood by Automated count Low 1.00-4.8 [facility] Lymphocytes/100 WBC Auto (Bl d)Ordered By: Jaiden Nance on 08-21-2024 Lymphocytes/100 WBC (Bld) Lymphocytes/100 leukocytes in Blood by Automated count . [facility] MCH Auto (RBC) [Entitic mass ]Ordered By: Jaiden Nance on 08-21-2024 MCH (RBC) [Entitic mass] MCH [Entitic mass] by Automated count 27.5-35.2 [facility] MCHC Auto (RBC) [Mass/Vol]Or dered By: Jaiden Nance on 08-21-2024 MCHC (RBC) [Mass/Vol] MCHC [Mass/volume] by Automated count 32.5-35.6 [facility] MCV Auto (RBC) [Entitic vol] Ordered By: Jaiden Nance on 08-21-2024 MCV (RBC) [Entitic vol] MCV [Entitic volume] by Automated count 83.5-101 [facility] Magnesiumon 08-21-2024 Magnesium [Mass/Vol] 1.8 mg/dL Low 1.9-2.7 [facility] Comment on above: Result Comment: PERF ORMED BY: [place] [address] PATHOLOGIST FILE SYSTEM INSTALLER HEBER SHANNON M.D. Performed By: #### U A #### [address] Magnesium [Mass/volume] in S stephanie or PlasmaOrdered By: Jaiden Nance on 08-21-2024 Magnesium [Mass/Vol] Magnesium [Mass/vol ume] in Serum or Plasma Low 1.9-2.7 [facility] Monocytes Auto (Bld) [#/Vol] Ordered By: Jaiden Nance on 08-21-2024 Monocytes (Bld) [#/Vol] Automated blood monocyte count 0.0-0.8 [facility] Monocytes/100 WBC Auto (Bld) Ordered By: Jaiden Nance on 08-21-2024 Monocytes/100 WBC (Bld) Automated monocyte % . [facility] Neutrophils Auto (Bld) [#/Vo l]Ordered By: Jaiden Nance on 08-21-2024 Neutrophils (Bld) [#/Vol] Neutrophils [#/volume] in Blood by Automated count 1.8-7.7 [facility] Neutrophils/100 WBC Auto (Bl d)Ordered By: Jaiden Nance on 08-21-2024 Neutrophils/100 WBC (Bld) Automated neutrophil % . [facility] No Panel InformationOrdered By: Jaiden Nance on 08-21-2024 Estimated GFR (CKD-EPI) > 60.0 mL/Min [facility] Creatinine Clearance (Chem 59.79 [facility] Nucleated erythrocytes [Pres ence] in Blood by Automated countOrdered By: Jaiden Nance on 08-21-2024 Nucleated RBC Auto Ql (Bld) Nucleated erythrocytes [Presence] in Blood by Automated count 0-0.5 [facility] Platelet mean volume Auto (B ld) [Entitic vol]Ordered By: Jaiden Nance on 08-21-2024 Platelet mean volume (Bld) [Entitic vol] Platelet mean volume [Entitic volume] in Blood by Automated count 6.6-10.1 [facility] Platelets Auto (Bld) [#/Vol] Ordered By: Jaiden Nance on 08-21-2024 Platelets (Bld) [#/Vol] Platelets [#/volume] in Blood by Automated count 150-450 [facility] Potassium [Moles/volume] in Serum or PlasmaOrdered By: Jaiden Nance on 08-21-2024 Potassium [Moles/Vol] Potassium [Moles/v olume] in Serum or Plasma Low 3.5-5.1 [facility] Protein [Mass/volume] in Ser um or PlasmaOrdered By: Jaiden Nance on 08-21-2024 Protein [Mass/Vol] Protein [Mass/volume ] in Serum or Plasma Low 6.4-8.9 [facility] RBC Auto (Bld) [#/Vol]Ordere d By: Jaiden Nance on 08-21-2024 RBC (Bld) [#/Vol] Erythrocytes [#/volu me] in Blood by Automated count Low 3.90-5.60 [facility] Serum or plasma albumin/glob ulin mass ratioOrdered By: Jaiden Nance 08-21-2024 Albumin/Globulin [Mass ratio] Serum or plasma albumin/globulin mass ratio [facility] Serum or plasma anion gap de terminationOrdered By: Jaiden Nance on 08-21-2024 Anion gap [Moles/Vol] Serum or plasma an ion gap determination 6.0-15.0 [facility] Sodium [Moles/volume] in Ser um or PlasmaOrdered By: Jaiden Nance on 08-21-2024 Sodium [Moles/Vol] Sodium [Moles/volume ] in Serum or Plasma 136-145 [facility] Urea nitrogen [Mass/volume] in Serum or PlasmaOrdered By: Jaiden Nance on 08-21-2024 Urea nitrogen [Mass/Vol] Urea nitrogen [Mass/volume] in Serum or Plasma 7-25 [facility] WBC Auto (Bld) [#/Vol]Ordere d By: Jaiden Nance on 08-21-2024 WBC (Bld) [#/Vol] Leukocytes [#/volume ] in Blood by Automated count 4.1-10.5 [facility] Alanine aminotransferase [En zymatic activity/volume] in Serum or PlasmaOrdered By: Louie Marrero on 08-20-2024 ALT [Catalytic activity/Vol] Alanine aminotransferase [Enzymatic activity/volume] in Serum or Plasma 7-52 [facility] Albumin [Mass/volume] in Ser um or Plasma by Bromocresol green (BCG) dye binding methoOrdered By: Louie Marrero on 08-20-2024 Albumin BCG dye [Mass/Vol] Albumin [Mass/volume] in Serum or Plasma by Bromocresol green (BCG) dye binding metho Low 3.5-5.7 [facility] Alkaline phosphatase [Enzyma tic activity/volume] in Serum or PlasmaOrdered By: Louie Marrero on 08-20-2024 ALP [Catalytic activity/Vol] Alkaline phosphatase [Enzymatic activity/volume] in Serum or Plasma 34-104 [facility] Appearance of UrineOrdered B y: Louie Marrero on 08-20-2024 Appearance (U) Urine appearance [facility] Aspartate aminotransferase [ Enzymatic activity/volume] in Serum or PlasmaOrdered By: Louie Marrero on 08-20-2024 AST [Catalytic activity/Vol] Aspartate aminotransferase [Enzymatic activity/volume] in Serum or Plasma 13-39 [facility] Basophils Auto (Bld) [#/Vol] Ordered By: Louie Marrero on 08-20-2024 Basophils (Bld) [#/Vol] Automated basophil count 0.0-0.2 [facility] Basophils/100 WBC Auto (Bld) Ordered By: Louie Marrero on 08-20-2024 Basophils/100 WBC (Bld) Automated basophil % . [facility] Bilirubin Test strip Ql (U)O rdered By: Louie Marrero on 08-20-2024 Bilirubin Ql (U) Bilirubin.total [Presence] in Urine by Test strip Negative [facility] Bilirubin.total [Mass/volume ] in Serum or PlasmaOrdered By: Louie Marrero on 08-20-2024 Bilirubin [Mass/Vol] Bilirubin.total [Mass/volume] in Serum or Plasma 0.3-1.0 [facility] BioFire Not Detectedon 08-20 BioFire Not Detected Not detected Normal Not Detecte [facility] Comment on above: Result Comment: This is a duplicate RP2.1 COVID (PCR) result to be used for statistical tracking purpose only. PERFORMED BY: [place] [address] PATHOLOGIST FILE SYSTEM INSTALLER HEBER SHANNON M.D. Performed By: #### M G, SCAN CBC, CMP #### [facility] [address] [place] [address] Blood Cultureon 08-20-2024 Bacteria identified Cx Nom (Bld) MISSED X1 PT REFUSED TO LET ME TRY AGAIN BORIS PISANO KNOWS NO GROWTH 5 DAYS PERFORMED BY: [place] [address] PATHOLOGIST FILE SYSTEM INSTALLER HEBER SHANNON M.D. Normal [facility] Comment on above: Performed By: #### E SR #### [facility] [address] [place] [address] Bacteria identified Cx Nom (Bld) right chest NO GROWTH 5 DAYS PERFORMED BY: [place] [address] PATHOLOGIST FILE SYSTEM INSTALLER HEBER SHANNON M.D. Normal [facility] Comment on above: Performed By: #### E SR #### [facility] [address] C reactive protein [Mass/vol ume] in Serum or PlasmaOrdered By: Louie Marrero on 08-20-2024 CRP [Mass/Vol] C reactive protein [Mass/volume] in Serum or Plasma High 0.0-0.5 [facility] C-Reactive Proteinon 025 C-Reactive Protein 3.3 mg/dL High 0.0-0.5 The [facility] Comment on above: Result Comment: PERF ORMED BY: [place] [address] PATHOLOGIST FILE SYSTEM INSTALLER HEBER SHANNON M.D. Performed By: #### E SR #### [facility] [address] COVID-19 Detected/Not Detect edOrdered By: Louie Marrero on 08-20-2024 SARS-CoV-2 (COVID-19) RNA MICHELLE+non-probe Ql (Nph) Not detected Not Detecte [facility] Comment on above: This is a duplicate RP2.1 COVID (PCR) result to be used for statistical tracking purpose only. Calcium [Mass/volume] in Ser um or PlasmaOrdered By: Louie Marrero on 08-20-2024 Calcium [Mass/Vol] Calcium [Mass/volume ] in Serum or Plasma Low 8.6-10.3 [facility] Carbon dioxide, total [Moles /volume] in Serum or PlasmaOrdered By: Louie Marrero on 08-20-2024 CO2 [Moles/Vol] Carbon dioxide, tota l [Moles/volume] in Serum or Plasma 21.0-31.0 [facility] Chloride [Moles/volume] in S stephanie or PlasmaOrdered By: Louie Marrero on 08-20-2024 Chloride [Moles/Vol] Chloride [Moles/vol ume] in Serum or Plasma 98-107 [facility] Color Auto (U)Ordered By: Abe Marrero on 08-20-2024 Color (U) Color of Urine by Auto Yellow [facility] Complete Blood Count Auto Di ffon 08-20-2024 Basophils (Bld) [#/Vol] 0.0 10*3/uL Normal 0.0-0.2 [facility] Comment on above: Result Comment: PERF ORMED BY: [place] [address] PATHOLOGIST FILE SYSTEM INSTALLER HEBER SHANNON M.D. Performed By: #### U A #### [address] Basophils/100 WBC (Bld) 0.5 % Normal . [facility] Comment on above: Performed By: #### U A #### [address] Eosinophils (Bld) [#/Vol] 0.1 10*3/uL Normal 0.0-0.45 [facility] Comment on above: Performed By: #### U A #### [address] Eosinophils/100 WBC (Bld) 0.7 % Normal . [facility] Comment on above: Performed By: #### U A #### [address] Erythrocyte distribution width (RBC) [Ratio] 14.8 % Normal 12.0-14.8 [facility] Comment on above: Performed By: #### U A #### [address] Hematocrit (Bld) [Volume fraction] 34.2 % Low 38.8-50.0 [facility] Comment on above: Performed By: #### U A #### [address] Hemoglobin (Bld) [Mass/Vol] 11.4 g/dL Low 13.0-17.0 [facility] Comment on above: Performed By: #### U A #### [address] Lymphocytes (Bld) [#/Vol] 0.8 10*3/uL Low 1.00-4.8 [facility] Comment on above: Performed By: #### U A #### [address] Lymphocytes/100 WBC (Bld) 10.5 % Normal . [facility] Comment on above: Performed By: #### U A #### [address] MCH (RBC) [Entitic mass] 31.0 pg Normal 27.5-35.2 [facility] Comment on above: Performed By: #### U A #### [address] MCV (RBC) [Entitic vol] 92.9 fL Normal 83.5-101 [facility] Comment on above: Performed By: #### U A #### [address] Mean Corpuscular HGB Conc 33.4 g/dL Normal 32.5-35.6 [facility] Comment on above: Performed By: #### U A #### [address] Monocytes (Bld) [#/Vol] 0.8 10*3/uL Normal 0.0-0.8 [facility] Comment on above: Performed By: #### U A #### [address] Monocytes/100 WBC (Bld) 23.19 % High 0.00-20.00 [facility] Comment on above: Result Comment: For adults in ED, MDW > 20.0 may be associated with a higher risk of sepsis during the first 12 hrs of hospital admission Performed By: #### U A #### [address] Monocytes/100 WBC (Bld) 11.3 % Normal . [facility] Comment on above: Performed By: #### U A #### [place] [address] [place] Neutrophils (Bld) [#/Vol] 5.7 10*3/uL Normal 1.8-7.7 [facility] Comment on above: Performed By: #### U A #### [facility] [address] Neutrophils/100 WBC (Bld) 77.0 % Normal . [facility] Comment on above: Performed By: #### U A #### [facility] [address] NRBC% 0.2 /100{WBC} Normal 0-0.5 The [facility] Comment on above: Performed By: #### U A #### [facility] [address] Platelet mean volume (Bld) [Entitic vol] 8.1 fL Normal 6.6-10.1 The [facility] Comment on above: Performed By: #### U A #### [facility] [address] Platelets (Bld) [#/Vol] 234 10*3/uL Normal 150-450 [facility] Comment on above: Performed By: #### U A #### [address] RBC (Bld) [#/Vol] 3.68 10*6/uL Low 3.90-5.60 The [facility] Comment on above: Performed By: #### U A #### [address] WBC (Bld) [#/Vol] 7.4 10*3/uL Normal 4.1-10.5 [facility] Comment on above: Performed By: #### U A #### [address] Comprehensive Metabolic Pane obdulio 08-20-2024 Albumin [Mass/Vol] 3.4 g/dL Low 3.5-5.7 [facility] Comment on above: Performed By: #### E SR #### [address] Albumin/Globulin [Mass ratio] 1.4 {ratio} Normal [facility] Comment on above: Performed By: #### E SR #### [facility] [address] [place] [address] [place] ALP [Catalytic activity/Vol] 66 U/L Normal 34-104 [facility] Comment on above: Performed By: #### E SR #### [place] [address] [place] ALT [Catalytic activity/Vol] 17 U/L Normal 7-52 [facility] Comment on above: Performed By: #### E SR #### [place] [address] [place] Anion gap [Moles/Vol] 10.3 mmol/L Normal 6.0-15.0 [facility] Comment on above: Performed By: #### E SR #### [address] AST [Catalytic activity/Vol] 18 U/L Normal 13-39 [facility] Comment on above: Performed By: #### E SR #### [place] [address] [place] Bilirubin [Mass/Vol] 0.6 mg/dL Normal 0.3-1.0 [facility] Comment on above: Performed By: #### E SR #### [address] Calcium [Mass/Vol] 8.4 mg/dL Low 8.6-10.3 The Pending [facility] Comment on above: Performed By: #### E SR #### [place] [address] [place] Chloride [Moles/Vol] 104 mmol/L Normal 98-107 [facility] Comment on above: Performed By: #### E SR #### [place] [address] [place] CO2 [Moles/Vol] 25.4 mmol/L Normal 21.0-31.0 The [facility] Comment on above: Performed By: #### E SR #### [place] [id number] [place] Creatinine [Mass/Vol] 0.85 mg/dL Normal 0.70-1.30 [facility] Comment on above: Performed By: #### E SR #### [address] Creatinine Clr Calc Pharmacy 58.71 Normal [facility] Comment on above: Result Comment: PERF ORMED BY: [place] [address] PATHOLOGIST FILE SYSTEM INSTALLER HEBER SHANNON M.D. Performed By: #### E SR #### [address] GFR/1.73 sq M.predicted MDRD (S/P/Bld) [Vol rate/Area] mL/min/{1.73_m2} Normal [facility] Comment on above: Performed By: #### E SR #### [address] Globulin (S) [Mass/Vol] 2.5 g/dL Normal [facility] Comment on above: Performed By: #### E SR #### [address] Glucose [Mass/Vol] 106 mg/dL High 70-100 The [facility] Comment on above: Result Comment: [place] Glucose Reference Range is dependent on time and content of last meal. Glucose of more than 200 mg/dL in a nonstressed, ambulatory subject supports the diagnosis of Diabetes Mellitus. ADA recommended reference range Performed By: #### E SR #### [address] Potassium [Moles/Vol] 3.7 mmol/L Normal 3.5-5.1 [facility] Comment on above: Performed By: #### E SR #### [address] Protein [Mass/Vol] 5.9 g/dL Low 6.4-8.9 The [facility] Comment on above: Performed By: #### E SR #### [address] [place] [address] [place] Sodium [Moles/Vol] 136 mmol/L Normal 136-145 The [facility] Comment on above: Performed By: #### E SR #### [facility] [address] [place] [address] Urea nitrogen [Mass/Vol] 16 mg/dL Normal 7-25 [facility] Comment on above: Performed By: #### E SR #### [facility] [address] [place] [address] Creatinine [Mass/volume] in Serum or PlasmaOrdered By: Louie Marrero on 08-20-2024 Creatinine [Mass/Vol] Creatinine [Mass/v olume] in Serum or Plasma 0.70-1.30 [facility] ECG 12 lead ECGon 08-20-2024 ECG 12 lead ECG [facility] [place] [address] [place] [address] Electrocardiograph Report Signed Patient: Jeremie Bennett MR#: [id number] : 1940 Acct:[id number] Age/Sex: 83 / M ADM Date: 08/20/24 Loc: ER Room: Type: [facility] ER Attending Dr: Ordering Provider: Louie Marrero [...] ECGs available Confirmed by LOUIE MARRERO DO ([id number]) on 08/20/2024 7:55:25 PM Referred By: Electronically Signed By: LOUIE MARRERO DO Transcribed By: MUS Signed By Louie Marrero DO 08/20 Normal [facility] Eosinophils Auto (Bld) [#/Vo l]Ordered By: Louie Marrero on 08-20-2024 Eosinophils (Bld) [#/Vol] Automated eosinophil count 0.0-0.45 [facility] Eosinophils/100 WBC Auto (Bl d)Ordered By: Louie Marrero on 08-20-2024 Eosinophils/100 WBC (Bld) Automated eosinophil % . [facility] Erythrocyte Sedimentation Ra ciro 08-20-2024 ESR (Bld) [Velocity] 42 mm/h High 0-19 [facility] Comment on above: Result Comment: PERF ORMED BY: [facility] [address] [place] [address] PATHOLOGIST FILE SYSTEM INSTALLER HEBER SHANNON M.D. Performed By: #### E #### [address] Erythrocyte distribution wid th Auto (RBC) [Ratio]Ordered By: Louie Marrero on 08-20-2024 Erythrocyte distribution width (RBC) [Ratio] Erythrocyte distribution width [Ratio] by Automated count 12.0-14.8 [facility] Erythrocyte sedimentation ra te by Photometric methodOrdered By: Jaiden Nance on 08-20-2024 ESR Photometric method (Bld) [Velocity] Erythrocyte sedimentation rate by Photometric method High 0-19 [facility] Globulin Calc (S) [Mass/Vol] Ordered By: Louie Marrero on 08-20-2024 Globulin (S) [Mass/Vol] Serum globulin measurement by calculation (mass/volume) [facility] Glucose [Mass/volume] in Ser um or PlasmaOrdered By: Louie Marrero on 08-20-2024 Glucose [Mass/Vol] Glucose [Mass/volume ] in Serum or Plasma High 70-100 [facility] Comment on above: ADA recommended refe rence rangeRandom Glucose Reference Range is dependent on time and content of last meal. Glucose of more than 200 mg/dL in a nonstressed, ambulatory subject supports the diagnosis of Diabetes Mellitus. Glucose [Mass/volume] in Uri ne by Test stripOrdered By: Louie Marrero on 08-20-2024 Glucose Test strip (U) [Mass/Vol] Glucose [Mass/volume] in Urine by Test strip Normal [facility] Hematocrit Auto (Bld) [Volum e fraction]Ordered By: Louie Marrero on 08-20-2024 Hematocrit (Bld) [Volume fraction] Hematocrit [Volume Fraction] of Blood by Automated count Low 38.8-50.0 [facility] Hemoglobin Test strip Ql (U) Ordered By: Louie Marrero on 08-20-2024 Hemoglobin Ql (U) Hemoglobin [Presence ] in Urine by Test strip Negative [facility] Hemoglobin [Mass/volume] in BloodOrdered By: Louie Marrero on 08-20-2024 Hemoglobin (Bld) [Mass/Vol] Hemoglobin [Mass/volume] in Blood Low 13.0-17.0 [facility] INR in Platelet poor plasma by Coagulation assayOrdered By: Louie Marrero on 08-20-2024 INR Coag (PPP) [Relative time] INR in Platelet poor plasma by Coagulation assay [facility] Comment on above: INR Therapeutic Rang e [...] n Urine by Test strip High Negative [facility] Laboratory - Microbiology an d Antimicrobial susceptibilityOrdered By: Louie Marrero on 08-20-2024 Bacteria identified Cx Nom (Bld) NO GROWTH 5 DAYS [facility] Bacteria identified Cx Nom (Bld) NO GROWTH 5 DAYS [facility] Lactate [Moles/volume] in Se rum or PlasmaOrdered By: Louie Marrero on 08-20-2024 Lactate [Moles/Vol] Lactate [Moles/volum e] in Serum or Plasma 0.5-1.9 [facility] Comment on above: Lactic Acid referenc e range has been updated to 0.5 1.9 mmol/L and the critical range of 2.0 or greater. Lactic Acidon 08-20-2024 Lactate [Moles/Vol] 0.8 mmol/L Normal 0.5-1.9 The [facility] Comment on above: Result Comment: Lact ic Acid reference range has been updated to 0.5 ? 1.9 mmol/L and the critical range of 2.0 or greater. PERFORMED BY: [place] [address] PATHOLOGIST FILE SYSTEM INSTALLER HEBER SHANNON M.D. Performed By: #### U A #### [address] Leukocyte esterase [Presence ] in Urine by Test stripOrdered By: Louie Marrero on 08-20-2024 Leukocyte esterase Test strip Ql (U) Leukocyte esterase [Presence] in Urine by Test strip Negative [facility] Leukocytes [#/volume] correc suzy for nucleated erythrocytes in Blood by Automated counOrdered By: Louie Marrero on 08-20-2024 WBC corrected for nucl RBC Auto (Bld) [#/Vol] Leukocytes [#/volume] corrected for nucleated erythrocytes in Blood by Automated coun 4.1-10.5 [facility] Lymphocytes Auto (Bld) [#/Vo l]Ordered By: Louie Marrero on 08-20-2024 Lymphocytes (Bld) [#/Vol] Lymphocytes [#/volume] in Blood by Automated count Low 1.00-4.8 [facility] Lymphocytes/100 WBC Auto (Bl d)Ordered By: Louie aMrrero on 08-20-2024 Lymphocytes/100 WBC (Bld) Lymphocytes/100 leukocytes in Blood by Automated count . [facility] MCH Auto (RBC) [Entitic mass ]Ordered By: Louie Marrero on 08-20-2024 MCH (RBC) [Entitic mass] MCH [Entitic mass] by Automated count 27.5-35.2 [facility] MCHC Auto (RBC) [Mass/Vol]Or dered By: Louie Marrero on 08-20-2024 MCHC (RBC) [Mass/Vol] MCHC [Mass/volume] by Automated count 32.5-35.6 [facility] MCV Auto (RBC) [Entitic vol] Ordered By: Louie Marrero on 08-20-2024 MCV (RBC) [Entitic vol] MCV [Entitic volume] by Automated count 83.5-101 [facility] Monocyte distribution width [Entitic volume] in Blood by AutomatedOrdered By: Louie Marrero on 08-20-2024 Monocyte distribution width Auto (Bld) [Entitic vol] Monocyte distribution width [Entitic volume] in Blood by Automated High 0.00-20.00 [facility] Comment on above: For adults in ED, MD W > 20.0 may be associated with a higher risk of sepsis during the first 12 hrs of hospital admission Monocytes Auto (Bld) [#/Vol] Ordered By: Louie Marrero on 08-20-2024 Monocytes (Bld) [#/Vol] Automated blood monocyte count 0.0-0.8 [facility] Monocytes/100 WBC Auto (Bld) Ordered By: Louie Marrero on 08-20-2024 Monocytes/100 WBC (Bld) Automated monocyte % . [facility] Neutrophils Auto (Bld) [#/Vo l]Ordered By: Louie Marrero on 08-20-2024 Neutrophils (Bld) [#/Vol] Neutrophils [#/volume] in Blood by Automated count 1.8-7.7 [facility] Neutrophils/100 WBC Auto (Bl d)Ordered By: Louie Marrero on 08-20-2024 Neutrophils/100 WBC (Bld) Automated neutrophil % . [facility] Nitrite Test strip Ql (U)Ord ered By: Louie Marrero on 08-20-2024 Nitrite Ql (U) Nitrite [Presence] i n Urine by Test strip Negative [facility] No Panel InformationOrdered By: Louie Marrero on 08-20-2024 Estimated GFR (CKD-EPI) > 60.0 mL/Min [facility] Creatinine Clearance (Chem 58.71 [facility] Nucleated erythrocytes [Pres ence] in Blood by Automated countOrdered By: Louie Marrero on 08-20-2024 Nucleated RBC Auto Ql (Bld) Nucleated erythrocytes [Presence] in Blood by Automated count 0-0.5 [facility] Platelet mean volume Auto (B ld) [Entitic vol]Ordered By: Louie Marrero on 08-20-2024 Platelet mean volume (Bld) [Entitic vol] Platelet mean volume [Entitic volume] in Blood by Automated count 6.6-10.1 [facility] Platelets Auto (Bld) [#/Vol] Ordered By: Louie Marrero on 08-20-2024 Platelets (Bld) [#/Vol] Platelets [#/volume] in Blood by Automated count 150-450 [facility] Potassium [Moles/volume] in Serum or PlasmaOrdered By: Louie Marrero on 08-20-2024 Potassium [Moles/Vol] Potassium [Moles/v olume] in Serum or Plasma 3.5-5.1 [facility] Protein Test strip (U) [Mass /Vol]Ordered By: Louie Marrero on 08-20-2024 Protein (U) [Mass/Vol] Protein [Mass/vol ume] in Urine by Test strip Negative [facility] Protein [Mass/volume] in Ser um or PlasmaOrdered By: Louie Marrero on 08-20-2024 Protein [Mass/Vol] Protein [Mass/volume ] in Serum or Plasma Low 6.4-8.9 [facility] Prothrombin Time INRon 08-20 INR Coag (PPP) [Relative time] 1.1 {INR} Normal [facility] Comment on [...] heart valves: 3 - 4.5 PERFORMED BY: [place] [id number] PATHOLOGIST FILE SYSTEM INSTALLER HEBER SHANNON M.D. Performed By: #### E SR #### [facility] [address] [place] [id number] [facility] PT Coag (PPP) [Time] 12.9 s Normal 9.0-12.9 [facility] Comment on above: Result Comment: A he matocrit value greater than 55% may lead to inaccurate results in coagulation testing. Patients having hematocrit values >55% require a special collection tube for coagulation studies. Please contact the laboratory at [phone] for redraw instructions. Performed By: #### E SR #### [facility] [address] [place] [id number] [facility] Prothrombin time (PT)Ordered By: Louie Marrero on 08-20-2024 PT Coag (PPP) [Time] Prothrombin time (PT) 9.0- 12.9 [facility] Comment on above: A hematocrit value g reater than 55% may lead to inaccurate results in coagulation testing. Patients having hematocrit values >55% require a special collection tube for coagulation studies. Please contact the laboratory at [phone] for redraw instructions. RBC Auto (Bld) [#/Vol]Ordere d By: Louie Marrero on 08-20-2024 RBC (Bld) [#/Vol] Erythrocytes [#/volu me] in Blood by Automated count Low 3.90-5.60 [facility] Respiratory (Upper) Panel, P CRon 08-20-2024 Respiratory [...] A H3 Blank Space ---- PERFORMED BY: [place] [address] PATHOLOGIST FILE SYSTEM INSTALLER HEBER SHANNON M.D. Normal [facility] Comment on above: Performed By: #### M G, SCAN CBC, CMP #### [facility] [address] Respiratory pathogens DNA an d RNA panel - Nasopharynx by MICHELLE with non-probe detectionOrdered By: Louie Marrero on 08-20-2024 Respiratory pathogens DNA and RNA panel MICHELLE+non-probe (Nph) Respiratory pathogens DNA and RNA panel - Nasopharynx by MICHELLE with non-probe detection [facility] Serum or plasma albumin/glob ulin mass ratioOrdered By: Louie Marrero on 08-20-2024 Albumin/Globulin [Mass ratio] Serum or plasma albumin/globulin mass ratio [facility] Serum or plasma anion gap de terminationOrdered By: Louie Marrero on 08-20-2024 Anion gap [Moles/Vol] Serum or plasma an ion gap determination 6.0-15.0 [facility] Sodium [Moles/volume] in Ser um or PlasmaOrdered By: Louie Marrero on 08-20-2024 Sodium [Moles/Vol] Sodium [Moles/volume ] in Serum or Plasma 136-145 [facility] Specific gravity Test strip (U) [Rel density]Ordered By: Louie Marrero on 08-20-2024 Specific gravity (U) [Rel density] Specific gravity of Urine by Test strip 1.001-1.03 0 [facility] Troponin I High Sensitivityo n 08-20-2024 Troponin I High Sensitivity 12 Normal 0-20 [facility] Comment on above: Result Comment: The Troponin units of report have been changed to meet the Chest Pain Accreditation requirement, element EC5.M1l2. Troponin units are changed from pg/ml to ng/L. Also, the decimal is removed and results are in whole numbers. PERFORMED BY: [place] [address] PATHOLOGIST FILE SYSTEM INSTALLER HEBER SHANNON M.D. Performed By: #### M G, SCAN CBC, CMP #### [facility] [address] [place], [place] [id number] [facility] Troponin I.cardiac [Mass/vol ume] in Serum or Plasma by Detection limit <= 0.01 ng/Ordered By: Louie Marrero on 08-20-2024 Troponin I.cardiac DL <= 0.01 ng/mL [Mass/Vol] Troponin I.cardiac [Mass/volume] in Serum or Plasma by Detection limit <= 0.01 ng/ 0-20 [facility] Comment on above: The Troponin units o f report have been changed to meet the Chest Pain Accreditation requirement, element EC5.M1l2. Troponin units are changed from pg/ml to ng/L. Also, the decimal is removed and results are in whole numbers. Urea nitrogen [Mass/volume] in Serum or PlasmaOrdered By: Louie Marrero on 08-20-2024 Urea nitrogen [Mass/Vol] Urea nitrogen [Mass/volume] in Serum or Plasma 12-08 [facility] Urinalysison 08-20-2024 Appearance (U) Clear Normal Clear The [facility] Comment on above: Order Comment: Name Collection Type:: Straight Catheter Performed By: #### M G, SCAN CBC, CMP #### [facility] [address] [place] [address] [place] Bilirubin,Urine Negative Normal Negative The [facility] Comment on above: Order Comment: Name Collection Type:: Straight Catheter Performed By: #### M G, SCAN CBC, CMP #### [facility] [address] [place] [address] [place] Color (U) Light-Yellow Normal Yellow The [facility] Comment on above: Order Comment: Name Collection Type:: Straight Catheter Performed By: #### M G, SCAN CBC, CMP #### [facility] [address] [place] [id number] [place] Glucose Ql (U) Normal Normal Normal The [facility] Comment on above: Order Comment: Name Collection Type:: Straight Catheter Performed By: #### M G, SCAN CBC, CMP #### [facility] [address] [place] [id number] [place] Ketones Ql (U) 1+ High Negative The [facility] Comment on above: Order Comment: Name Collection Type:: Straight Catheter Performed By: #### M G, SCAN CBC, CMP #### [address] Leukocyte esterase Test strip Ql (U) Negative Normal Negative [facility] Comment on above: Order Comment: Name Collection Type:: Straight Catheter Performed By: #### M G, SCAN CBC, CMP #### [place] [address] [place] Nitrite,Urine Negative Normal Negative The [facility] Comment on above: Order Comment: Name Collection Type:: Straight Catheter Performed By: #### M G, SCAN CBC, CMP #### [address] Occult Blood,Urine Negative Normal Negative The Pending sale to [facility] Comment on above: Order Comment: Name Collection Type:: Straight Catheter Result Comment: PERF ORMED BY: [place] [address] PATHOLOGIST FILE SYSTEM INSTALLER HEBER SHANNON M.D. Performed By: #### M G, SCAN CBC, CMP #### [address] pH (U) 5.5 [pH] Normal 5.0-9.0 [facility] Comment on above: Order Comment: Name Collection Type:: Straight Catheter Performed By: #### M G, SCAN CBC, CMP #### [address] Protein,Urine Negative Normal Negative The [facility] Comment on above: Order Comment: Name Collection Type:: Straight Catheter Performed By: #### M G, SCAN CBC, CMP #### [place] [address] [place] Specificy [place],Urine 1.017 Normal 1.001-1.03 0 [facility] Comment on above: Order Comment: Name Collection Type:: Straight Catheter Performed By: #### M G, SCAN CBC, CMP #### [place] [address] [place] Urobilinogen,Urine Normal Normal Normal The [facility] Comment on above: Order Comment: Name Collection Type:: Straight Catheter Performed By: #### M G, SCAN CBC, CMP #### [facility] [address] [place] [id number] [place] Urobilinogen Test strip (U) [Mass/Vol]Ordered By: Louie Marrero on 08-20-2024 Urobilinogen (U) [Mass/Vol] Urobilinogen [Mass/volume] in Urine by Test strip Normal [facility] WBC Auto (Bld) [#/Vol]Ordere d By: Louie Marrero on 08-20-2024 WBC (Bld) [#/Vol] Leukocytes [#/volume ] in Blood by Automated count 4.1-10.5 [facility] X-ray reportOrdered By: Brooks Benavides on 08-20-2024 Study report [facility] Main [place] [address] [place] [address] XRay Report Signed Patient: Jeremie Bennett MR#: [id number] : 1940 Acct:[id number] Age/Sex: 83 / M ADM Date: 5 Loc: ER Room: Type: [facility] ER Attending Dr: Copies to: Louie Marrero DO~ Ordering Provider: Louie Marrero DO Date of Service: 08/20/24 XR/XR chest 1V portable: Fever SINGLE VIEW CHEST CLINICAL HISTORY: Fever, recently finished chemotherapy, cough for 3 weeks COMPARISON: 07/17/2024 FINDINGS: Left-sided pacemaker device. Right-sided [id number]. Posterior changes fromprior ACDF. Mildly enlarged cardiac silhouette. Minimal hazy bibasilar opacities similar prior exam. No effusion or pneumothorax. XR/XR chest 1V portable IMPRESSION: MILD BIBASILAR AIRSPACE OPACITIES, THESE APPEAR SIMILAR PRIOR EXAM. Impression dictated by: Rah Benavides M.D.08/20/2024 6:32 PM Dictation Location: [facility]- Transcribed By: PERLA 08/20/241831 Dictated By: Rah Benavides MD 08/20/241830 Signed By: 08/20/241831 [facility] Work Phone: XR chest 1V portableon 08-20 XR chest 1V portable [facility] Main [place] [address] [place] [address] XRay Report Signed Patient: Jeremie Bennett MR#: [id number] : 1940 Acct:[id number] Age/Sex: 83 / M ADM Date: 08/20/24 Loc: ER Room: Type: [facility] ER Attending Dr: Copies to: Louie Marrero DO Ordering Provider: Louie Marrero DO Date of Service: 08/20/24 XR/XR chest 1V portable: Fever SINGLE VIEW CHEST CLINICAL HISTORY: Fever, recently finished chemotherapy, cough for 3 weeks COMPARISON: 07/17/2024 FINDINGS: Left-sided pacemaker device. Right-sided [id number]. Posterior changes from prior ACDF. Mildly enlarged cardiac silhouette. Minimal hazy bibasilar opacities similar prior exam. No effusion or pneumothorax. XR/XR chest 1V portable IMPRESSION: MILD BIBASILAR AIRSPACE OPACITIES, THESE APPEAR SIMILAR PRIOR EXAM. Impression dictated by: Rah Benavides M.D.08/20/2024 6:32 PM Dictation Location: [place] [address] Transcribed By: PERLA 08/20/241831 Dictated By: Rah Benavides MD 08/20/241830 Signed By: 08/20/241831 Normal [facility] pH Test strip (U)Ordered By: Louie Marrero on 08-20-2024 pH (U) pH of Urine by Test strip 5.0-9.0 [facility] Alanine aminotransferase [En zymatic activity/volume] in Serum or PlasmaOrdered By: Talib Faustin on 08-16-2024 ALT [Catalytic activity/Vol] Alanine aminotransferase [Enzymatic activity/volume] in Serum or Plasma [facility] Albumin [Mass/volume] in Ser um or Plasma by Bromocresol green (BCG) dye binding methoOrdered By: Talib Faustin on 08-16-2024 Albumin BCG dye [Mass/Vol] Albumin [Mass/volume] in Serum or Plasma by Bromocresol green (BCG) dye binding metho 3.5-5.7 [facility] Alkaline phosphatase [Enzyma tic activity/volume] in Serum or PlasmaOrdered By: Talib Faustin on 08-16-2024 ALP [Catalytic activity/Vol] Alkaline phosphatase [Enzymatic activity/volume] in Serum or Plasma 34-104 [facility] Aspartate aminotransferase [ Enzymatic activity/volume] in Serum or PlasmaOrdered By: Talib Faustin on 08-16-2024 AST [Catalytic activity/Vol] Aspartate aminotransferase [Enzymatic activity/volume] in Serum or Plasma 13-39 [facility] Basophils Auto (Bld) [#/Vol] Ordered By: Talib Faustin on 08-16-2024 Basophils (Bld) [#/Vol] Automated basophil count 0.0-0.2 [facility] Basophils/100 WBC Auto (Bld) Ordered By: Talib Faustin on 08-16-2024 Basophils/100 WBC (Bld) Automated basophil % . [facility] Bilirubin.total [Mass/volume ] in Serum or PlasmaOrdered By: Talib Faustin on 08-16-2024 Bilirubin [Mass/Vol] Bilirubin.total [Mass/volume] in Serum or Plasma 0.3-1.0 [facility] Calcium [Mass/volume] in Ser um or PlasmaOrdered By: Talib Faustin on 08-16-2024 Calcium [Mass/Vol] Calcium [Mass/volume ] in Serum or Plasma 8.6-10.3 [facility] Carbon dioxide, total [Moles /volume] in Serum or PlasmaOrdered By: Talib Hargrove on 08-16-2024 CO2 [Moles/Vol] Carbon dioxide, tota l [Moles/volume] in Serum or Plasma 21.0-31.0 [facility] Chloride [Moles/volume] in S stephanie or PlasmaOrdered By: Tlaib Faustin on 08-16-2024 Chloride [Moles/Vol] Chloride [Moles/vol ume] in Serum or Plasma 98-107 [facility] Complete Blood Count Auto Di ffon 08-16-2024 Basophils (Bld) [#/Vol] 0.1 10*3/uL Normal 0.0-0.2 [facility] Comment on above: Result Comment: PERF ORMED BY: [place] [address] PATHOLOGIST FILE SYSTEM INSTALLER HEBER SHANNON M.D. Performed By: #### E SR #### [address] Basophils/100 WBC (Bld) 1.1 % Normal . [facility] Comment on above: Performed By: #### E SR #### [address] Eosinophils (Bld) [#/Vol] 0.1 10*3/uL Normal 0.0-0.45 [facility] Comment on above: Performed By: #### E SR #### [address] Eosinophils/100 WBC (Bld) 0.7 % Normal . [facility] Comment on above: Performed By: #### E SR #### [address] Erythrocyte distribution width (RBC) [Ratio] 15.2 % High 12.0-14.8 [facility] Comment on above: Performed By: #### E SR #### [address] Hematocrit (Bld) [Volume fraction] 34.8 % Low 38.8-50.0 [facility] Comment on above: Performed By: #### E SR #### [address] Hemoglobin (Bld) [Mass/Vol] 11.7 g/dL Low 13.0-17.0 [facility] Comment on above: Performed By: #### E SR #### [address] Lymphocytes (Bld) [#/Vol] 0.6 10*3/uL Low 1.00-4.8 [facility] Comment on above: Performed By: #### E SR #### [address] Lymphocytes/100 WBC (Bld) 6.4 % Normal . [facility] Comment on above: Performed By: #### E SR #### [address] MCH (RBC) [Entitic mass] 30.8 pg Normal 27.5-35.2 [facility] Comment on above: Performed By: #### E SR #### [address] MCV (RBC) [Entitic vol] 91.9 fL Normal 83.5-101 [facility] Comment on above: Performed By: #### E SR #### [address] Mean Corpuscular HGB Conc 33.5 g/dL Normal 32.5-35.6 [facility] Comment on above: Performed By: #### E SR #### [address] Monocytes (Bld) [#/Vol] 1.1 10*3/uL High 0.0-0.8 [facility] Comment on above: Performed By: #### E SR #### [address] Monocytes/100 WBC (Bld) 12.6 % Normal . [facility] Comment on above: Performed By: #### E SR #### [address] Neutrophils (Bld) [#/Vol] 7.2 10*3/uL Normal 1.8-7.7 [facility] Comment on above: Performed By: #### E SR #### [address] Neutrophils/100 WBC (Bld) 79.2 % Normal . [facility] Comment on above: Performed By: #### E SR #### [address] NRBC% 0.1 /100{WBC} Normal 0-0.5 The [facility] Comment on above: Performed By: #### E SR #### [facility] [address] [place] [id number] [facility] Platelet mean volume (Bld) [Entitic vol] 7.5 fL Normal 6.6-10.1 The [facility] Comment on above: Performed By: #### E SR #### [facility] [address] [place] [id number] [facility] Platelets (Bld) [#/Vol] 236 10*3/uL Normal 150-450 [facility] Comment on above: Performed By: #### E SR #### [address] RBC (Bld) [#/Vol] 3.79 10*6/uL Low 3.90-5.60 The [facility] Comment on above: Performed By: #### E SR #### [address] WBC (Bld) [#/Vol] 9.1 10*3/uL Normal 4.1-10.5 The [facility]ending [facility] Comment on above: Performed By: #### E SR #### [address] Comprehensive Metabolic Pane obdulio 08-16-2024 Albumin [Mass/Vol] 3.6 g/dL Normal 3.5-5.7 The [facility]ending [facility] Comment on above: Performed By: #### E SR #### [address] Albumin/Globulin [Mass ratio] 1.4 {ratio} Normal [facility] Comment on above: Performed By: #### E SR #### [place] [id number] [place] ALP [Catalytic activity/Vol] 73 U/L Normal 34-104 [facility] Comment on above: Performed By: #### E SR #### [address] ALT [Catalytic activity/Vol] 14 U/L Normal 7-52 [facility] Comment on above: Performed By: #### E SR #### [address] Anion gap [Moles/Vol] 10.5 mmol/L Normal 6.0-15.0 [facility] Comment on above: Performed By: #### E SR #### [address] AST [Catalytic activity/Vol] 13 U/L Normal 13-39 [facility] Comment on above: Performed By: #### E SR #### [address] Bilirubin [Mass/Vol] 0.4 mg/dL Normal 0.3-1.0 [facility] Comment on above: Performed By: #### E SR #### [address] Calcium [Mass/Vol] 8.6 mg/dL Normal 8.6-10.3 The [facility] Comment on above: Performed By: #### E SR #### [address] Chloride [Moles/Vol] 107 mmol/L Normal 98-107 [facility] Comment on above: Performed By: #### E SR #### [address] CO2 [Moles/Vol] 24.4 mmol/L Normal 21.0-31.0 The [facility] Comment on above: Performed By: #### E SR #### [address] Creatinine [Mass/Vol] 0.83 mg/dL Normal 0.70-1.30 [facility] Comment on above: Performed By: #### E SR #### [address] Creatinine Clr Calc Pharmacy 59.79 Normal [facility] Comment on above: Result Comment: PERF ORMED BY: [place] [address] PATHOLOGIST FILE SYSTEM INSTALLER HEBER SHANNON M.D. Performed By: #### E SR #### [place] [address] [place] GFR/1.73 sq M.predicted MDRD (S/P/Bld) [Vol rate/Area] mL/min/{1.73_m2} Normal [facility] Comment on above: Performed By: #### E SR #### [address] Globulin (S) [Mass/Vol] 2.6 g/dL Normal [facility] Comment on above: Performed By: #### E SR #### [address] Glucose [Mass/Vol] 119 mg/dL High 70-100 The [facility]ending [facility] Comment on above: Result Comment: [place] Glucose Reference Range is dependent on time and content of last meal. Glucose of more than 200 mg/dL in a nonstressed, ambulatory subject supports the diagnosis of Diabetes Mellitus. ADA recommended reference range Performed By: #### E SR #### [address] Potassium [Moles/Vol] 3.9 mmol/L Normal 3.5-5.1 [facility] Comment on above: Performed By: #### E SR #### [address] Protein [Mass/Vol] 6.2 g/dL Low 6.4-8.9 The Pending [facility] Comment on above: Performed By: #### E SR #### [address] Sodium [Moles/Vol] 138 mmol/L Normal 136-145 The [facility]ending [facility] Comment on above: Performed By: #### E SR #### [place] [address] [place] Urea nitrogen [Mass/Vol] 19 mg/dL Normal 7-25 [facility] Comment on above: Performed By: #### E SR #### [place] [address] [place] Creatinine [Mass/volume] in Serum or PlasmaOrdered By: Talib Faustin on 08-16-2024 Creatinine [Mass/Vol] Creatinine [Mass/v olume] in Serum or Plasma 0.70-1.30 [facility] Eosinophils Auto (Bld) [#/Vo l]Ordered By: Talib Faustin on 08-16-2024 Eosinophils (Bld) [#/Vol] Automated eosinophil count 0.0-0.45 [facility] Eosinophils/100 WBC Auto (Bl d)Ordered By: rick Faustin on 08-16-2024 Eosinophils/100 WBC (Bld) Automated eosinophil % . [facility] Erythrocyte distribution wid th Auto (RBC) [Ratio]Ordered By: Talib Faustin on 08-16-2024 Erythrocyte distribution width (RBC) [Ratio] Erythrocyte distribution width [Ratio] by Automated count High 12.0-14.8 [facility] Globulin Calc (S) [Mass/Vol] Ordered By: rick Faustin on 08-16-2024 Globulin (S) [Mass/Vol] Serum globulin measurement by calculation (mass/volume) [facility] Glucose [Mass/volume] in Ser um or PlasmaOrdered By: rick Faustin on 08-16-2024 Glucose [Mass/Vol] Glucose [Mass/volume ] in Serum or Plasma High 70-100 [facility] Comment on above: ADA recommended refe rence rangeRandom Glucose Reference Range is dependent on time and content of last meal. Glucose of more than 200 mg/dL in a nonstressed, ambulatory subject supports the diagnosis of Diabetes Mellitus. Hematocrit Auto (Bld) [Volum e fraction]Ordered By: Talib Faustin on 08-16-2024 Hematocrit (Bld) [Volume fraction] Hematocrit [Volume Fraction] of Blood by Automated count Low 38.8-50.0 [facility] Hemoglobin [Mass/volume] in BloodOrdered By: Talib Faustin on 08-16-2024 Hemoglobin (Bld) [Mass/Vol] Hemoglobin [Mass/volume] in Blood Low 13.0-17.0 [facility] Leukocytes [#/volume] correc suzy for nucleated erythrocytes in Blood by Automated counOrdered By: Talib Faustin on 08-16-2024 WBC corrected for nucl RBC Auto (Bld) [#/Vol] Leukocytes [#/volume] corrected for nucleated erythrocytes in Blood by Automated coun 4.1-10.5 [facility] Lymphocytes Auto (Bld) [#/Vo l]Ordered By: Talib Faustin on 08-16-2024 Lymphocytes (Bld) [#/Vol] Lymphocytes [#/volume] in Blood by Automated count Low 1.00-4.8 [facility] Lymphocytes/100 WBC Auto (Bl d)Ordered By: Talib Faustin on 08-16-2024 Lymphocytes/100 WBC (Bld) Lymphocytes/100 leukocytes in Blood by Automated count . [facility] MCH Auto (RBC) [Entitic mass ]Ordered By: Talib Faustin on 08-16-2024 MCH (RBC) [Entitic mass] MCH [Entitic mass] by Automated count 27.5-35.2 [facility] MCHC Auto (RBC) [Mass/Vol]Or dered By: Talib Faustin on 08-16-2024 MCHC (RBC) [Mass/Vol] MCHC [Mass/volume] by Automated count 32.5-35.6 [facility] MCV Auto (RBC) [Entitic vol] Ordered By: Talib Faustin on 08-16-2024 MCV (RBC) [Entitic vol] MCV [Entitic volume] by Automated count 83.5-101 [facility] Monocytes Auto (Bld) [#/Vol] Ordered By: Talib Faustin on 08-16-2024 Monocytes (Bld) [#/Vol] Automated blood monocyte count High 0.0-0.8 [facility] Monocytes/100 WBC Auto (Bld) Ordered By: Talib Faustin on 08-16-2024 Monocytes/100 WBC (Bld) Automated monocyte % . [facility] Neutrophils Auto (Bld) [#/Vo l]Ordered By: Talib Faustin on 08-16-2024 Neutrophils (Bld) [#/Vol] Neutrophils [#/volume] in Blood by Automated count 1.8-7.7 [facility] Neutrophils/100 WBC Auto (Bl d)Ordered By: Talib Faustin on 08-16-2024 Neutrophils/100 WBC (Bld) Automated neutrophil % . [facility] No Panel InformationOrdered By: Talib Faustin on 08-16-2024 Estimated GFR (CKD-EPI) > 60.0 mL/Min [facility] Creatinine Clearance (Chem 59.79 [facility] Nucleated erythrocytes [Pres ence] in Blood by Automated countOrdered By: Talib Faustin on 08-16-2024 Nucleated RBC Auto Ql (Bld) Nucleated erythrocytes [Presence] in Blood by Automated count 0-0.5 [facility] Platelet mean volume Auto (B ld) [Entitic vol]Ordered By: Talib Faustin on 08-16-2024 Platelet mean volume (Bld) [Entitic vol] Platelet mean volume [Entitic volume] in Blood by Automated count 6.6-10.1 [facility] Platelets Auto (Bld) [#/Vol] Ordered By: Talib Faustin on 08-16-2024 Platelets (Bld) [#/Vol] Platelets [#/volume] in Blood by Automated count 150-450 [facility] Potassium [Moles/volume] in Serum or PlasmaOrdered By: Talib Faustin on 08-16-2024 Potassium [Moles/Vol] Potassium [Moles/v olume] in Serum or Plasma 3.5-5.1 [facility] Protein [Mass/volume] in Ser um or PlasmaOrdered By: Talib Faustin on 08-16-2024 Protein [Mass/Vol] Protein [Mass/volume ] in Serum or Plasma Low 6.4-8.9 [facility] RBC Auto (Bld) [#/Vol]Ordere d By: Talib Faustin on 08-16-2024 RBC (Bld) [#/Vol] Erythrocytes [#/volu me] in Blood by Automated count Low 3.90-5.60 [facility] Serum or plasma albumin/glob ulin mass ratioOrdered By: Talib Faustin on 08-16-2024 Albumin/Globulin [Mass ratio] Serum or plasma albumin/globulin mass ratio [facility] Serum or plasma anion gap de terminationOrdered By: rick Faustin on 08-16-2024 Anion gap [Moles/Vol] Serum or plasma an ion gap determination 6.0-15.0 [facility] Sodium [Moles/volume] in Ser um or PlasmaOrdered By: rick Faustin on 08-16-2024 Sodium [Moles/Vol] Sodium [Moles/volume ] in Serum or Plasma 136-145 [facility] Urea nitrogen [Mass/volume] in Serum or PlasmaOrdered By: rick Faustin on 08-16-2024 Urea nitrogen [Mass/Vol] Urea nitrogen [Mass/volume] in Serum or Plasma 7-25 [facility] WBC Auto (Bld) [#/Vol]Ordere d By: rick Faustin on 08-16-2024 WBC (Bld) [#/Vol] Leukocytes [#/volume ] in Blood by Automated count 4.1-10.5 [facility] Complete Blood Count Auto Di ffon 08-09-2024 Basophils (Bld) [#/Vol] 0.0 10*3/uL Normal 0.0-0.2 [facility] Comment on above: Result Comment: PERF ORMED BY: [place] [address] PATHOLOGIST FILE SYSTEM INSTALLER HEBER SHANNON M.D. Performed By: #### C MP, CBC #### [facility] [address] [place] [address] [place] Basophils/100 WBC (Bld) 0.4 % Normal . [facility] Comment on above: Performed By: #### C MP, CBC #### [facility] [address] [place] [address] [place] Eosinophils (Bld) [#/Vol] 0.0 10*3/uL Normal 0.0-0.45 [facility] Comment on above: Performed By: #### C MP, CBC #### [facility] [address] [place] [address] [place] Eosinophils/100 WBC (Bld) 0.5 % Normal . [facility] Comment on above: Performed By: #### C MP, CBC #### [address] Erythrocyte distribution width (RBC) [Ratio] 14.7 % Normal 12.0-14.8 [facility] Comment on above: Performed By: #### C MP, CBC #### [address] Hematocrit (Bld) [Volume fraction] 36.9 % Low 38.8-50.0 [facility] Comment on above: Performed By: #### C MP, CBC #### [address] Hemoglobin (Bld) [Mass/Vol] 12.4 g/dL Low 13.0-17.0 The [facility] Comment on above: Performed By: #### C MP, CBC #### [address] Lymphocytes (Bld) [#/Vol] 0.6 10*3/uL Low 1.00-4.8 [facility] Comment on above: Performed By: #### C MP, CBC #### [address] Lymphocytes/100 WBC (Bld) 7.4 % Normal . [facility] Comment on above: Performed By: #### C MP, CBC #### [address] MCH (RBC) [Entitic mass] 30.9 pg Normal 27.5-35.2 [facility] Comment on above: Performed By: #### C MP, CBC #### [address] MCV (RBC) [Entitic vol] 92.2 fL Normal 83.5-101 [facility] Comment on above: Performed By: #### C MP, CBC #### [address] Mean Corpuscular HGB Conc 33.6 g/dL Normal 32.5-35.6 [facility] Comment on above: Performed By: #### C MP, CBC #### [facility] [address] [place] [address] [place] Monocytes (Bld) [#/Vol] 0.8 10*3/uL Normal 0.0-0.8 The [facility] Comment on above: Performed By: #### C MP, CBC #### [facility] [address] [place] [id number] [place] Monocytes/100 WBC (Bld) 8.9 % Normal . [facility] Comment on above: Performed By: #### C MP, CBC #### [facility] [address] [place] [address] [place] Neutrophils (Bld) [#/Vol] 7.2 10*3/uL Normal 1.8-7.7 The [facility] Comment on above: Performed By: #### C MP, CBC #### [facility] [address] [place] [address] [place] Neutrophils/100 WBC (Bld) 82.8 % Normal . [facility] Comment on above: Performed By: #### C MP, CBC #### [facility] [address] [place] [address] [place] NRBC% 0.1 /100{WBC} Normal 0-0.5 The [facility] Comment on above: Performed By: #### C MP, CBC #### [facility] [address] [place] [address] [place] Platelet mean volume (Bld) [Entitic vol] 7.9 fL Normal 6.6-10.1 The [facility] Comment on above: Performed By: #### C MP, CBC #### [facility] [address] [place] [address] [place] Platelets (Bld) [#/Vol] 245 10*3/uL Normal 150-450 The [facility] Comment on above: Performed By: #### C MP, CBC #### [facility] [address] [place] [address] [place] RBC (Bld) [#/Vol] 4.00 10*6/uL Normal 3.90-5.60 The [facility] Comment on above: Performed By: #### C MP, CBC #### [address] WBC (Bld) [#/Vol] 8.7 10*3/uL Normal 4.1-10.5 The Pending sale to [facility] Comment on above: Performed By: #### C MP, CBC #### [address] Comprehensive Metabolic Pane obdluio 08-09-2024 Albumin [Mass/Vol] 3.7 g/dL Normal 3.5-5.7 The Pending sale to [facility] Comment on above: Performed By: #### C MP, CBC #### [address] Albumin/Globulin [Mass ratio] 1.2 {ratio} Normal [facility] Comment on above: Performed By: #### C MP, CBC #### [address] ALP [Catalytic activity/Vol] 69 U/L Normal 34-104 [facility] Comment on above: Performed By: #### C MP, CBC #### [address] ALT [Catalytic activity/Vol] 18 U/L Normal 7-52 [facility] Comment on above: Performed By: #### C MP, CBC #### [address] Anion gap [Moles/Vol] 10.4 mmol/L Normal 6.0-15.0 [facility] Comment on above: Performed By: #### C MP, CBC #### [address] AST [Catalytic activity/Vol] 18 U/L Normal 13-39 [facility] Comment on above: Performed By: #### C MP, CBC #### [address] Bilirubin [Mass/Vol] 0.4 mg/dL Normal 0.3-1.0 The [facility] Comment on above: Performed By: #### C MP, CBC #### [address] Calcium [Mass/Vol] 9.4 mg/dL Normal 8.6-10.3 The Pending [facility] to [facility] Comment on above: Performed By: #### C MP, CBC #### [address] Chloride [Moles/Vol] 102 mmol/L Normal 98-107 [facility] Comment on above: Performed By: #### C MP, CBC #### [address] CO2 [Moles/Vol] 26.5 mmol/L Normal 21.0-31.0 The [facility] Comment on above: Performed By: #### C MP, CBC #### [address] Creatinine [Mass/Vol] 0.91 mg/dL Normal 0.70-1.30 The [facility] Comment on above: Performed By: #### C MP, CBC #### [place] [address] [place] Creatinine Clr Calc Pharmacy 54.53 Normal [facility] Comment on above: Result Comment: PERF ORMED BY: [place] [address] PATHOLOGIST FILE SYSTEM INSTALLER HEBER SHANNON M.D. Performed By: #### C MP, CBC #### [place] [address] [place] GFR/1.73 sq M.predicted MDRD (S/P/Bld) [Vol rate/Area] mL/min/{1.73_m2} Normal [facility] Comment on above: Performed By: #### C MP, CBC #### [place] [address] [place] Globulin (S) [Mass/Vol] 3.0 g/dL Normal [facility] Comment on above: Performed By: #### C MP, CBC #### [place] [address] [place] Glucose [Mass/Vol] 163 mg/dL High 70-100 The Pending sale to [facility] Comment on above: Result Comment: [place] Glucose Reference Range is dependent on time and content of last meal. Glucose of more than 200 mg/dL in a nonstressed, ambulatory subject supports the diagnosis of Diabetes Mellitus. ADA recommended reference range Performed By: #### C MP, CBC #### [facility] [address] [place] [address] [place] Potassium [Moles/Vol] 3.9 mmol/L Normal 3.5-5.1 The [facility] Comment on above: Performed By: #### C MP, CBC #### [facility] [address] [place] [address] [place] Protein [Mass/Vol] 6.7 g/dL Normal 6.4-8.9 The Pending sale to [facility] Comment on above: Performed By: #### C MP, CBC #### [place] [address] [place] Sodium [Moles/Vol] 135 mmol/L Low 136-145 The Pending sale to [facility] Comment on above: Performed By: #### C MP, CBC #### [facility] [address] [place] [address] [place] Urea nitrogen [Mass/Vol] 31 mg/dL High 7-25 [facility] Comment on above: Performed By: #### C MP, CBC #### [place] [address] [place] Complete Blood Count Auto Di ffon 08-02-2024 Basophils (Bld) [#/Vol] 0.1 10*3/uL Normal 0.0-0.2 The [facility] Comment on above: Result Comment: PERF ORMED BY: [place] [address] PATHOLOGIST FILE SYSTEM INSTALLER HEBER SHANNON M.D. Performed By: #### M G, SCAN CBC, CMP #### [facility] [address] [place] [address] [place] Basophils/100 WBC (Bld) 1.0 % Normal . [facility] Comment on above: Performed By: #### M G, SCAN CBC, CMP #### [address] Eosinophils (Bld) [#/Vol] 0.0 10*3/uL Normal 0.0-0.45 The [facility] Comment on above: Performed By: #### M G, SCAN CBC, CMP #### [address] Eosinophils/100 WBC (Bld) 0.6 % Normal . [facility] Comment on above: Performed By: #### M G, SCAN CBC, CMP #### [address] Erythrocyte distribution width (RBC) [Ratio] 14.0 % Normal 12.0-14.8 The [facility] Comment on above: Performed By: #### M G, SCAN CBC, CMP #### [address] Hematocrit (Bld) [Volume fraction] 35.5 % Low 38.8-50.0 [facility] Comment on above: Performed By: #### M G, SCAN CBC, CMP #### [address] Hemoglobin (Bld) [Mass/Vol] 12.1 g/dL Low 13.0-17.0 [facility] Comment on above: Performed By: #### M G, SCAN CBC, CMP #### [place] [address] [place] Lymphocytes (Bld) [#/Vol] 0.6 10*3/uL Low 1.00-4.8 [facility] Comment on above: Performed By: #### M G, SCAN CBC, CMP #### [place] [address] [place] Lymphocytes/100 WBC (Bld) 10.3 % Normal . [facility] Comment on above: Performed By: #### M G, SCAN CBC, CMP #### [address] MCH (RBC) [Entitic mass] 31.4 pg Normal 27.5-35.2 [facility] Comment on above: Performed By: #### M G, SCAN CBC, CMP #### [address] MCV (RBC) [Entitic vol] 92.2 fL Normal 83.5-101 The [facility] Comment on above: Performed By: #### M G, SCAN CBC, CMP #### [address] Mean Corpuscular HGB Conc 34.0 g/dL Normal 32.5-35.6 [facility] Comment on above: Performed By: #### M G, SCAN CBC, CMP #### [address] Monocytes (Bld) [#/Vol] 0.9 10*3/uL High 0.0-0.8 The [facility] Comment on above: Performed By: #### M G, SCAN CBC, CMP #### [address] Monocytes/100 WBC (Bld) 14.8 % Normal . [facility] Comment on above: Performed By: #### M G, SCAN CBC, CMP #### [address] Neutrophils (Bld) [#/Vol] 4.5 10*3/uL Normal 1.8-7.7 The [facility] Comment on above: Performed By: #### M G, SCAN CBC, CMP #### [address] Neutrophils/100 WBC (Bld) 73.3 % Normal . [facility] Comment on above: Performed By: #### M G, SCAN CBC, CMP #### [address] NRBC% 0.1 /100{WBC} Normal 0-0.5 The [facility] Comment on above: Performed By: #### M G, SCAN CBC, CMP #### [address] Platelet mean volume (Bld) [Entitic vol] 7.4 fL Normal 6.6-10.1 The [facility] Comment on above: Performed By: #### M G, SCAN CBC, CMP #### [address] Platelets (Bld) [#/Vol] 215 10*3/uL Normal 150-450 [facility] Comment on above: Performed By: #### M G, SCAN CBC, CMP #### [address] RBC (Bld) [#/Vol] 3.85 10*6/uL Low 3.90-5.60 The [facility] Comment on above: Performed By: #### M G, SCAN CBC, CMP #### [address] WBC (Bld) [#/Vol] 6.2 10*3/uL Normal 4.1-10.5 The Pending sale to [facility] Comment on above: Performed By: #### M G, SCAN CBC, CMP #### [address] Comprehensive Metabolic Pane obdulio 08-02-2024 Albumin [Mass/Vol] 3.6 g/dL Normal 3.5-5.7 The Pending sale to [facility] Comment on above: Performed By: #### M G, SCAN CBC, CMP #### [address] Albumin/Globulin [Mass ratio] 1.3 {ratio} Normal [facility] Comment on above: Performed By: #### M G, SCAN CBC, CMP #### [address] ALP [Catalytic activity/Vol] 75 U/L Normal 34-104 [facility] Comment on above: Performed By: #### M G, SCAN CBC, CMP #### [address] ALT [Catalytic activity/Vol] 12 U/L Normal 7-52 [facility] Comment on above: Performed By: #### M G, SCAN CBC, CMP #### [facility] [address] Anion gap [Moles/Vol] 10.1 mmol/L Normal 6.0-15.0 Th e [facility] Comment on above: Performed By: #### M G, SCAN CBC, CMP #### [facility] [address] AST [Catalytic activity/Vol] 13 U/L Normal 13-39 [facility] Comment on above: Performed By: #### M G, SCAN CBC, CMP #### [facility] [address] Bilirubin [Mass/Vol] 0.5 mg/dL Normal 0.3-1.0 The [facility] Comment on above: Performed By: #### M G, SCAN CBC, CMP #### [address] Calcium [Mass/Vol] 8.5 mg/dL Low 8.6-10.3 The Pending sale to [facility] Comment on above: Performed By: #### M G, SCAN CBC, CMP #### [place] [address] [place] Chloride [Moles/Vol] 103 mmol/L Normal 98-107 [facility] Comment on above: Performed By: #### M G, SCAN CBC, CMP #### [facility] [address] [place] [address] [place] CO2 [Moles/Vol] 27.1 mmol/L Normal 21.0-31.0 The [facility] Comment on above: Performed By: #### M G, SCAN CBC, CMP #### [facility] [address] [place] [address] [place] Creatinine [Mass/Vol] 1.03 mg/dL Normal 0.70-1.30 [facility] Comment on above: Performed By: #### M G, SCAN CBC, CMP #### [facility] [address] [place] [address] [place] Creatinine Clr Calc Pharmacy 48.18 Normal [facility] Comment on above: Result Comment: PERF ORMED BY: [address] [place] [address] PATHOLOGIST FILE SYSTEM INSTALLER HEBER SHANNON M.D. Performed By: #### M G, SCAN CBC, CMP #### [address] GFR/1.73 sq M.predicted MDRD (S/P/Bld) [Vol rate/Area] mL/min/{1.73_m2} Normal [facility] Comment on above: Performed By: #### M G, SCAN CBC, CMP #### [address] Globulin (S) [Mass/Vol] 2.7 g/dL Normal [facility] Comment on above: Performed By: #### M G, SCAN CBC, CMP #### [address] Glucose [Mass/Vol] 120 mg/dL High 70-100 The Pending sale to [facility] Comment on above: Result Comment: [place] Glucose Reference Range is dependent on time and content of last meal. Glucose of more than 200 mg/dL in a nonstressed, ambulatory subject supports the diagnosis of Diabetes Mellitus. ADA recommended reference range Performed By: #### M G, SCAN CBC, CMP #### [address] Potassium [Moles/Vol] 4.2 mmol/L Normal 3.5-5.1 The [facility] Comment on above: Performed By: #### M G, SCAN CBC, CMP #### [address] Protein [Mass/Vol] 6.3 g/dL Low 6.4-8.9 The Pending sale to [facility] Comment on above: Performed By: #### M G, SCAN CBC, CMP #### [address] Sodium [Moles/Vol] 136 mmol/L Normal 136-145 The Pending sale to [facility] Comment on above: Performed By: #### M G, SCAN CBC, CMP #### [address] Urea nitrogen [Mass/Vol] 35 mg/dL High 7 [facility] Comment on above: Performed By: #### M G, SCAN CBC, CMP #### [facility] [address] Alanine aminotransferase [En zymatic activity/volume] in Serum or PlasmaOrdered By: Talib Faustin on 07-26-2024 ALT [Catalytic activity/Vol] Alanine aminotransferase [Enzymatic activity/volume] in Serum or Plasma 7-52 [facility] Albumin [Mass/volume] in Ser um or Plasma by Bromocresol green (BCG) dye binding methoOrdered By: Talib Faustin on 07-26-2024 Albumin BCG dye [Mass/Vol] Albumin [Mass/volume] in Serum or Plasma by Bromocresol green (BCG) dye binding metho 3.5-5.7 [facility] Alkaline phosphatase [Enzyma tic activity/volume] in Serum or PlasmaOrdered By: Talib Faustin on 07-26-2024 ALP [Catalytic activity/Vol] Alkaline phosphatase [Enzymatic activity/volume] in Serum or Plasma 34-104 [facility] Aspartate aminotransferase [ Enzymatic activity/volume] in Serum or PlasmaOrdered By: Talib Faustin on 07-26-2024 AST [Catalytic activity/Vol] Aspartate aminotransferase [Enzymatic activity/volume] in Serum or Plasma 13-39 [facility] Basophils Auto (Bld) [#/Vol] Ordered By: Talib Faustin on 07-26-2024 Basophils (Bld) [#/Vol] Automated basophil count 0.0-0.2 [facility] Basophils/100 WBC Auto (Bld) Ordered By: rick Faustin on 07-26-2024 Basophils/100 WBC (Bld) Automated basophil % . [facility] Bilirubin.total [Mass/volume ] in Serum or PlasmaOrdered By: Talib Faustin on 07-26-2024 Bilirubin [Mass/Vol] Bilirubin.total [Mass/volume] in Serum or Plasma 0.3-1.0 [facility] Calcium [Mass/volume] in Ser um or PlasmaOrdered By: Talib Faustin on 07-26-2024 Calcium [Mass/Vol] Calcium [Mass/volume ] in Serum or Plasma 8.6-10.3 [facility] Carbon dioxide, total [Moles /volume] in Serum or PlasmaOrdered By: [facility] on 07-26-2024 CO2 [Moles/Vol] Carbon dioxide, tota l [Moles/volume] in Serum or Plasma 21.0-31.0 [facility] Chloride [Moles/volume] in S stephanie or PlasmaOrdered By: [facility] 07-26-2024 Chloride [Moles/Vol] Chloride [Moles/vol ume] in Serum or Plasma 98-107 [facility] Complete Blood Count Auto Di ffon 07-26-2024 Basophils (Bld) [#/Vol] 0.1 10*3/uL Normal 0.0-0.2 The [facility] Comment on above: Result Comment: PERF ORMED BY: [place] [address] PATHOLOGIST FILE SYSTEM INSTALLER HEBER SHANNON M.D. Performed By: #### E SR #### [address] Basophils/100 WBC (Bld) 1.0 % Normal . [facility] Comment on above: Performed By: #### E SR #### [place] [address] [place] Eosinophils (Bld) [#/Vol] 0.1 10*3/uL Normal 0.0-0.45 The [facility] Comment on above: Performed By: #### E SR #### [place] [address] [place] Eosinophils/100 WBC (Bld) 1.4 % Normal . [facility] Comment on above: Performed By: #### E SR #### [address] Erythrocyte distribution width (RBC) [Ratio] 13.6 % Normal 12.0-14.8 [facility] Comment on above: Performed By: #### E SR #### [address] Hematocrit (Bld) [Volume fraction] 35.4 % Low 38.8-50.0 [facility] Comment on above: Performed By: #### E SR #### [address] Hemoglobin (Bld) [Mass/Vol] 12.0 g/dL Low 13.0-17.0 [facility] Comment on above: Performed By: #### E SR #### [address] Lymphocytes (Bld) [#/Vol] 0.9 10*3/uL Low 1.00-4.8 [facility] Comment on above: Performed By: #### E SR #### [address] Lymphocytes/100 WBC (Bld) 13.0 % Normal . [facility] Comment on above: Performed By: #### E SR #### [address] MCH (RBC) [Entitic mass] 31.1 pg Normal 27.5-35.2 [facility] Comment on above: Performed By: #### E SR #### [address] MCV (RBC) [Entitic vol] 91.5 fL Normal 83.5-101 [facility] Comment on above: Performed By: #### E SR #### [address] Mean Corpuscular HGB Conc 34.0 g/dL Normal 32.5-35.6 [facility] Comment on above: Performed By: #### E SR #### [address] Monocytes (Bld) [#/Vol] 0.7 10*3/uL Normal 0.0-0.8 [facility] Comment on above: Performed By: #### E SR #### [place] [address] [place] Monocytes/100 WBC (Bld) 9.8 % Normal . [facility] Comment on above: Performed By: #### E SR #### [facility] [address] Neutrophils (Bld) [#/Vol] 5.1 10*3/uL Normal 1.8-7.7 [facility] Comment on above: Performed By: #### E SR #### [facility] [address] Neutrophils/100 WBC (Bld) 74.8 % Normal . [facility] Comment on above: Performed By: #### E SR #### [facility] [address] NRBC% 0.1 /100{WBC} Normal 0-0.5 The [facility] Comment on above: Performed By: #### E SR #### [address] Platelet mean volume (Bld) [Entitic vol] 7.4 fL Normal 6.6-10.1 The [facility] Comment on above: Performed By: #### E SR #### [facility] [address] Platelets (Bld) [#/Vol] 217 10*3/uL Normal 150-450 [facility] Comment on above: Performed By: #### E SR #### [place] [address] [place] RBC (Bld) [#/Vol] 3.87 10*6/uL Low 3.90-5.60 The [facility] Comment on above: Performed By: #### E SR #### [facility] [address] WBC (Bld) [#/Vol] 6.9 10*3/uL Normal 4.1-10.5 The Pending sale to [facility] Comment on above: Performed By: #### E SR #### [facility] [address] [place] [address] Comprehensive Metabolic Pane obdulio 07-26-2024 Albumin [Mass/Vol] 3.7 g/dL Normal 3.5-5.7 The Pending sale to [facility] Comment on above: Performed By: #### E SR #### [address] Albumin/Globulin [Mass ratio] 1.3 {ratio} Normal [facility] Comment on above: Performed By: #### E SR #### [address] ALP [Catalytic activity/Vol] 80 U/L Normal 34-104 [facility] Comment on above: Performed By: #### E SR #### [address] ALT [Catalytic activity/Vol] 13 U/L Normal 7-52 [facility] Comment on above: Performed By: #### E SR #### [address] Anion gap [Moles/Vol] 9.4 mmol/L Normal 6.0-15.0 [facility] Comment on above: Performed By: #### E SR #### [address] AST [Catalytic activity/Vol] 14 U/L Normal 13-39 [facility] Comment on above: Performed By: #### E SR #### [address] Bilirubin [Mass/Vol] 0.5 mg/dL Normal 0.3-1.0 [facility] Comment on above: Performed By: #### E SR #### [address] Calcium [Mass/Vol] 8.9 mg/dL Normal 8.6-10.3 The Pending sale to [facility] Comment on above: Performed By: #### E SR #### [address] Chloride [Moles/Vol] 104 mmol/L Normal 98-107 [facility] Comment on above: Performed By: #### E SR #### [address] CO2 [Moles/Vol] 26.8 mmol/L Normal 21.0-31.0 The [facility] Comment on above: Performed By: #### E SR #### [address] Creatinine [Mass/Vol] 0.87 mg/dL Normal 0.70-1.30 [facility] Comment on above: Performed By: #### E SR #### [address] Creatinine Clr Calc Pharmacy 57.04 Normal [facility] Comment on above: Result Comment: PERF ORMED BY: [place] [address] PATHOLOGIST FILE SYSTEM INSTALLER HEBER SHANNON M.D. Performed By: #### E SR #### [address] GFR/1.73 sq M.predicted MDRD (S/P/Bld) [Vol rate/Area] mL/min/{1.73_m2} Normal [facility] Comment on above: Performed By: #### E SR #### [address] Globulin (S) [Mass/Vol] 2.9 g/dL Normal [facility] Comment on above: Performed By: #### E SR #### [address] Glucose [Mass/Vol] 107 mg/dL High 70-100 The Pending sale to [facility] Comment on above: Result Comment: [place] Glucose Reference Range is dependent on time and content of last meal. Glucose of more than 200 mg/dL in a nonstressed, ambulatory subject supports the diagnosis of Diabetes Mellitus. ADA recommended reference range Performed By: #### E SR #### [address] Potassium [Moles/Vol] 4.2 mmol/L Normal 3.5-5.1 [facility] Comment on above: Performed By: #### E SR #### [facility] [address] Protein [Mass/Vol] 6.6 g/dL Normal 6.4-8.9 The Pending sale to [facility] Comment on above: Performed By: #### E SR #### [facility] [address] Sodium [Moles/Vol] 136 mmol/L Normal 136-145 The Pending sale to [facility] Comment on above: Performed By: #### E SR #### [facility] [address] Urea nitrogen [Mass/Vol] 30 mg/dL High 7-25 [facility] Comment on above: Performed By: #### E SR #### [facility] [address] [place] [address] Creatinine [Mass/volume] in Serum or PlasmaOrdered By: Talib Faustin on 07-26-2024 Creatinine [Mass/Vol] Creatinine [Mass/v olume] in Serum or Plasma 0.70-1.30 [facility] Eosinophils Auto (Bld) [#/Vo l]Ordered By: rick Faustin on 07-26-2024 Eosinophils (Bld) [#/Vol] Automated eosinophil count 0.0-0.45 [facility] Eosinophils/100 WBC Auto (Bl d)Ordered By: Talib Faustin on 07-26-2024 Eosinophils/100 WBC (Bld) Automated eosinophil % . [facility] Erythrocyte distribution wid th Auto (RBC) [Ratio]Ordered By: Talib Faustin on 07-26-2024 Erythrocyte distribution width (RBC) [Ratio] Erythrocyte distribution width [Ratio] by Automated count 12.0-14.8 [facility] Globulin Calc (S) [Mass/Vol] Ordered By: Talib Faustin on 07-26-2024 Globulin (S) [Mass/Vol] Serum globulin measurement by calculation (mass/volume) [facility] Glucose [Mass/volume] in Ser um or PlasmaOrdered By: Talib Faustin on 07-26-2024 Glucose [Mass/Vol] Glucose [Mass/volume ] in Serum or Plasma High 70-100 [facility] Comment on above: ADA recommended refe rence rangeRandom Glucose Reference Range is dependent on time and content of last meal. Glucose of more than 200 mg/dL in a nonstressed, ambulatory subject supports the diagnosis of Diabetes Mellitus. Hematocrit Auto (Bld) [Volum e fraction]Ordered By: Talib Faustin on 07-26-2024 Hematocrit (Bld) [Volume fraction] Hematocrit [Volume Fraction] of Blood by Automated count Low 38.8-50.0 [facility] Hemoglobin [Mass/volume] in BloodOrdered By: rick Faustin on 07-26-2024 Hemoglobin (Bld) [Mass/Vol] Hemoglobin [Mass/volume] in Blood Low 13.0-17.0 [facility] Leukocytes [#/volume] correc suzy for nucleated erythrocytes in Blood by Automated counOrdered By: Talib Faustin on 07-26-2024 WBC corrected for nucl RBC Auto (Bld) [#/Vol] Leukocytes [#/volume] corrected for nucleated erythrocytes in Blood by Automated coun 4.1-10.5 [facility] Lymphocytes Auto (Bld) [#/Vo l]Ordered By: rick Faustin on 07-26-2024 Lymphocytes (Bld) [#/Vol] Lymphocytes [#/volume] in Blood by Automated count Low 1.00-4.8 [facility] Lymphocytes/100 WBC Auto (Bl d)Ordered By: rick Faustin on 07-26-2024 Lymphocytes/100 WBC (Bld) Lymphocytes/100 leukocytes in Blood by Automated count . [facility] MCH Auto (RBC) [Entitic mass ]Ordered By: Talib Faustin on 07-26-2024 MCH (RBC) [Entitic mass] MCH [Entitic mass] by Automated count 27.5-35.2 [facility] MCHC Auto (RBC) [Mass/Vol]Or dered By: Talib Faustin on 07-26-2024 MCHC (RBC) [Mass/Vol] MCHC [Mass/volume] by Automated count 32.5-35.6 [facility] MCV Auto (RBC) [Entitic vol] Ordered By: Talib Faustin on 07-26-2024 MCV (RBC) [Entitic vol] MCV [Entitic volume] by Automated count 83.5-101 [facility] Monocytes Auto (Bld) [#/Vol] Ordered By: Talib Faustin on 07-26-2024 Monocytes (Bld) [#/Vol] Automated blood monocyte count 0.0-0.8 [facility] Monocytes/100 WBC Auto (Bld) Ordered By: rick Faustin on 07-26-2024 Monocytes/100 WBC (Bld) Automated monocyte % . [facility] Neutrophils Auto (Bld) [#/Vo l]Ordered By: Talib Faustin on 07-26-2024 Neutrophils (Bld) [#/Vol] Neutrophils [#/volume] in Blood by Automated count 1.8-7.7 [facility] Neutrophils/100 WBC Auto (Bl d)Ordered By: rick Faustin on 07-26-2024 Neutrophils/100 WBC (Bld) Automated neutrophil % . [facility] No Panel InformationOrdered By: Talib Faustin on 07-26-2024 Estimated GFR (CKD-EPI) > 60.0 mL/Min [facility] Creatinine Clearance (Chem 57.04 [facility] Nucleated erythrocytes [Pres ence] in Blood by Automated countOrdered By: Talib Faustin on 07-26-2024 Nucleated RBC Auto Ql (Bld) Nucleated erythrocytes [Presence] in Blood by Automated count 0-0.5 [facility] Platelet mean volume Auto (B ld) [Entitic vol]Ordered By: Talib Faustin on 07-26-2024 Platelet mean volume (Bld) [Entitic vol] Platelet mean volume [Entitic volume] in Blood by Automated count 6.6-10.1 [facility] Platelets Auto (Bld) [#/Vol] Ordered By: Talib Faustin on 07-26-2024 Platelets (Bld) [#/Vol] Platelets [#/volume] in Blood by Automated count 150-450 [facility] Potassium [Moles/volume] in Serum or PlasmaOrdered By: Talib Faustin on 07-26-2024 Potassium [Moles/Vol] Potassium [Moles/v olume] in Serum or Plasma 3.5-5.1 [facility] Protein [Mass/volume] in Ser um or PlasmaOrdered By: Talib Faustin on 07-26-2024 Protein [Mass/Vol] Protein [Mass/volume ] in Serum or Plasma 6.4-8.9 [facility] RBC Auto (Bld) [#/Vol]Ordere d By: Talib LamasDelvin on 07-26-2024 RBC (Bld) [#/Vol] Erythrocytes [#/volu me] in Blood by Automated count Low 3.90-5.60 [facility] Serum or plasma albumin/glob ulin mass ratioOrdered By: rick LamasDelvin on 07-26-2024 Albumin/Globulin [Mass ratio] Serum or plasma albumin/globulin mass ratio [facility] Serum or plasma anion gap de terminationOrdered By: Talib Faustin on 07-26-2024 Anion gap [Moles/Vol] Serum or plasma an ion gap determination 6.0-15.0 [facility] Sodium [Moles/volume] in Ser um or PlasmaOrdered By: rick LamasDelvin on 07-26-2024 Sodium [Moles/Vol] Sodium [Moles/volume ] in Serum or Plasma 136-145 [facility] Urea nitrogen [Mass/volume] in Serum or PlasmaOrdered By: rick LamasDelvin on 07-26-2024 Urea nitrogen [Mass/Vol] Urea nitrogen [Mass/volume] in Serum or Plasma High 7-25 [facility] WBC Auto (Bld) [#/Vol]Ordere d By: rick LamasDelvin on 07-26-2024 WBC (Bld) [#/Vol] Leukocytes [#/volume ] in Blood by Automated count 4.1-10.5 [facility] Complete Blood Count Auto Di ffon 07-19-2024 Basophils (Bld) [#/Vol] 0.0 10*3/uL Normal 0.0-0.2 [facility] Comment on above: Result Comment: PERF ORMED BY: [facility] [address] [place] [address] PATHOLOGIST FILE SYSTEM INSTALLER HEBER SHANNON M.D. Performed By: #### M G, CMP, CBC #### [address] Performed By: #### M G, SCAN CBC, CMP #### [address] Basophils/100 WBC (Bld) 0.5 % Normal . [facility] Comment on above: Performed By: #### M G, CMP, CBC #### [address] Performed By: #### M G, SCAN CBC, CMP #### [address] Eosinophils (Bld) [#/Vol] 0.1 10*3/uL Normal 0.0-0.45 [facility] Comment on above: Performed By: #### M G, CMP, CBC #### [address] Performed By: #### M G, SCAN CBC, CMP #### [address] Eosinophils/100 WBC (Bld) 1.4 % Normal . [facility] Comment on above: Performed By: #### M G, CMP, CBC #### [address] Performed By: #### M G, SCAN CBC, CMP #### [address] Erythrocyte distribution width (RBC) [Ratio] 13.4 % Normal 12.0-14.8 [facility] Comment on above: Performed By: #### M G, CMP, CBC #### [address] Performed By: #### M G, SCAN CBC, CMP #### [address] Hematocrit (Bld) [Volume fraction] 35.7 % Low 38.8-50.0 [facility] Comment on above: Performed By: #### M G, CMP, CBC #### [address] Performed By: #### M G, SCAN CBC, CMP #### [address] Hemoglobin (Bld) [Mass/Vol] 12.0 g/dL Low 13.0-17.0 [facility] Comment on above: Performed By: #### M G, CMP, CBC #### [address] Performed By: #### M G, SCAN CBC, CMP #### [address] Lymphocytes (Bld) [#/Vol] 1.3 10*3/uL Normal 1.00-4.8 [facility] Comment on above: Performed By: #### M G, CMP, CBC #### [address] Performed By: #### M G, SCAN CBC, CMP #### [address] Lymphocytes/100 WBC (Bld) 11.6 % Normal . [facility] Comment on above: Performed By: #### M G, CMP, CBC #### [address] Performed By: #### M G, SCAN CBC, CMP #### [address] MCH (RBC) [Entitic mass] 30.7 pg Normal 27.5-35.2 [facility] Comment on above: Performed By: #### M G, CMP, CBC #### [address] Performed By: #### M G, SCAN CBC, CMP #### [address] MCV (RBC) [Entitic vol] 91.3 fL Normal 83.5-101 [facility] Comment on above: Performed By: #### M G, CMP, CBC #### [address] Performed By: #### M G, SCAN CBC, CMP #### [address] Mean Corpuscular HGB Conc 33.7 g/dL Normal 32.5-35.6 [facility] Comment on above: Performed By: #### M G, CMP, CBC #### [address] Performed By: #### M G, SCAN CBC, CMP #### [address] Monocytes (Bld) [#/Vol] 0.8 10*3/uL Normal 0.0-0.8 [facility] Comment on above: Performed By: #### M G, CMP, CBC #### [address] Performed By: #### M G, SCAN CBC, CMP #### [address] Monocytes/100 WBC (Bld) 7.4 % Normal . [facility] Comment on above: Performed By: #### M G, CMP, CBC #### [address] Performed By: #### M G, SCAN CBC, CMP #### [address] Neutrophils (Bld) [#/Vol] 8.7 10*3/uL High 1.8-7.7 [facility] Comment on above: Performed By: #### M G, CMP, CBC #### [address] Performed By: #### M G, SCAN CBC, CMP #### [address] Neutrophils/100 WBC (Bld) 79.1 % Normal . [facility] Comment on above: Performed By: #### M G, CMP, CBC #### [address] Performed By: #### M G, SCAN CBC, CMP #### [address] NRBC% 0.1 /100{WBC} Normal 0-0.5 The [facility] Comment on above: Performed By: #### M G, CMP, CBC #### [address] Performed By: #### M G, SCAN CBC, CMP #### [address] Platelet mean volume (Bld) [Entitic vol] 7.9 fL Normal 6.6-10.1 The [facility] Comment on above: Performed By: #### M G, CMP, CBC #### [address] Performed By: #### M G, SCAN CBC, CMP #### [address] Platelets (Bld) [#/Vol] 179 10*3/uL Normal 150-450 [facility] Comment on above: Performed By: #### M G, CMP, CBC #### [address] Performed By: #### M G, SCAN CBC, CMP #### [address] RBC (Bld) [#/Vol] 3.91 10*6/uL Normal 3.90-5.60 The [facility] Comment on above: Performed By: #### M G, CMP, CBC #### [address] Performed By: #### M G, SCAN CBC, CMP #### [address] WBC (Bld) [#/Vol] 11.0 10*3/uL High 4.1-10.5 The [facility] Comment on above: Performed By: #### M G, CMP, CBC #### [facility] [address] [place] [address] Performed By: #### M G, SCAN CBC, CMP #### [facility] [address] [place] [address] Comprehensive Metabolic Pane obdulio 07-19-2024 Albumin [Mass/Vol] 3.8 g/dL Normal 3.5-5.7 The Pending sale to [facility] Comment on above: Performed By: #### M G, CMP, CBC #### [facility] [address] [place] [address] Performed By: #### U A #### [facility] [address] [place] [address] Albumin/Globulin [Mass ratio] 1.5 {ratio} Normal [facility] Comment on above: Performed By: #### M G, CMP, CBC #### [facility] [address] [place] [address] Performed By: #### U A #### [address] ALP [Catalytic activity/Vol] 84 U/L Normal 34-104 [facility] Comment on above: Performed By: #### M G, CMP, CBC #### [facility] [address] [place] [address] Performed By: #### U A #### [facility] [address] [place] [address] ALT [Catalytic activity/Vol] 12 U/L Normal 7-52 [facility] Comment on above: Performed By: #### M G, CMP, CBC #### [facility] [address] [place] [address] Performed By: #### U A #### [facility] [address] [place] [address] Anion gap [Moles/Vol] 10.1 mmol/L Normal 6.0-15.0 [facility] Comment on above: Performed By: #### M G, CMP, CBC #### [facility] [address] [place] [address] Performed By: #### U A #### [address] AST [Catalytic activity/Vol] 11 U/L Low 13-39 [facility] Comment on above: Performed By: #### M G, CMP, CBC #### [address] Performed By: #### U A #### [address] Bilirubin [Mass/Vol] 0.6 mg/dL Normal 0.3-1.0 [facility] Comment on above: Performed By: #### M G, CMP, CBC #### [address] Performed By: #### U A #### [address] Calcium [Mass/Vol] 9.2 mg/dL Normal 8.6-10.3 The Pending sale to [facility] Comment on above: Performed By: #### M G, CMP, CBC #### [facility] [address] [place] [address] Performed By: #### U A #### [address] Chloride [Moles/Vol] 107 mmol/L Normal 98-107 [facility] Comment on above: Performed By: #### M G, CMP, CBC #### [facility] [address] [place] [address] Performed By: #### U A #### [facility] [address] [place] [address] CO2 [Moles/Vol] 25.1 mmol/L Normal 21.0-31.0 The [facility] Comment on above: Performed By: #### M G, CMP, CBC #### [facility] [address] [place] [address] Performed By: #### U A #### [facility] [address] [place] [address] Creatinine [Mass/Vol] 0.95 mg/dL Normal 0.70-1.30 [facility] Comment on above: Performed By: #### M Avinash, CMP, CBC #### [address] Performed By: #### U A #### [address] Creatinine Clr Calc Pharmacy 56.56 Normal [facility] Comment on above: Performed By: #### M G, CMP, CBC #### [address] Performed By: #### U A #### [address] GFR/1.73 sq M.predicted MDRD (S/P/Bld) [Vol rate/Area] mL/min/{1.73_m2} Normal [facility] Comment on above: Performed By: #### M Avinash, CMP, CBC #### [address] Performed By: #### U A #### [address] Globulin (S) [Mass/Vol] 2.6 g/dL Normal [facility] Comment on above: Performed By: #### M Avinash, CMP, CBC #### [address] Performed By: #### U A #### [address] Glucose [Mass/Vol] 115 mg/dL High 70-100 The Pending sale to [facility] Comment on above: Result Comment: [place] Glucose Reference Range is dependent on time and content of last meal. Glucose of more than 200 mg/dL in a nonstressed, ambulatory subject supports the diagnosis of Diabetes Mellitus. ADA recommended reference range Performed By: #### M G, CMP, CBC #### [address] Performed By: #### U A #### [address] [place] [address] [place] Potassium [Moles/Vol] 4.2 mmol/L Normal 3.5-5.1 [facility] Comment on above: Performed By: #### M G, CMP, CBC #### [address] Performed By: #### U A #### [address] Protein [Mass/Vol] 6.4 g/dL Normal 6.4-8.9 The Pending sale to [facility] Comment on above: Performed By: #### M G, CMP, CBC #### [address] Performed By: #### U A #### [address] Sodium [Moles/Vol] 138 mmol/L Normal 136-145 The Pending sale to [facility] Comment on above: Performed By: #### M G, CMP, CBC #### [address] Performed By: #### U A #### [address] Urea nitrogen [Mass/Vol] 30 mg/dL High 7-25 [facility] Comment on above: Performed By: #### M G, CMP, CBC #### [address] Performed By: #### U A #### [address] Magnesiumon 07-19-2024 Magnesium [Mass/Vol] 1.8 mg/dL Low 1.9-2.7 [facility] Comment on above: Result Comment: PERF ORMED BY: [place] [address] PATHOLOGIST FILE SYSTEM INSTALLER HEBER SHANNON M.D. Performed By: #### M G, CMP, CBC #### [address] Performed By: #### U A #### [facility] [address] Magnesium [Mass/volume] in S stephanie or PlasmaOrdered By: Talib Faustin on 07-19-2024 Magnesium [Mass/Vol] Magnesium [Mass/vol ume] in Serum or Plasma Low 1.9-2.7 [facility] Office Visiton 07-19-2024 Follow-up visit [id number] [address] P 1940 M Date Provider Department Center 07/19/2024 BOY SON CARD [facility] Family History Problem Relation Age of Onset Coronary artery disease Mother Kidney disease Mother Heart failure Mother Family Status - Relation Status Age at Mother Level of Service:03852 [place] POSTOP FOLLOW UP VISIT RELATED TO ORIGINAL PX Normal [facility] GLUCOSE POCT GLUCOMETERSon 0 07-17-2024 COMMEMT1 Glu2: Cleaned Meter [facility] Glucose [Mass/Vol] 107 mg/dL [facility] Comment on above: Random Glucose Refer ence Range is dependent on time and content of last meal. Glucose of more than 200 mg/dL in a nonstressed, ambulatory subject supports the diagnosis of Diabetes Mellitus. [facility] Glucose Glucometer (BldC) [M ass/Vol]Ordered By: Matteo Melo on 07-17-2024 Glucose [Mass/Vol] Capillary blood gluc ose measurement by glucometer (mass/volume) [facility] Comment on above: Random Glucose Refer ence Range is dependent on time and content of last meal. Glucose of more than 200 mg/dL in a nonstressed, ambulatory subject supports the diagnosis of Diabetes Mellitus. Glucose Poct Glucometerson 0 07-17-2024 Commemt1 Glu2: Cleaned Meter Normal [facility] Comment on above: Result Comment: PERF ORMED BY: [facility] [address] [facility] [place] [address] PATHOLOGIST FILE SYSTEM INSTALLER HEBER SHANNON M.D. Performed By: #### G LULS #### Point of Care testing , Performed By: #### E SR #### [facility] [address] Glucose [Mass/Vol] 107 mg/dL Normal The Pending sale to [facility] Comment on above: Result Comment: [facility] Glucose Reference Range is dependent on time and content of last meal. Glucose of more than 200 mg/dL in a nonstressed, ambulatory subject supports the diagnosis of Diabetes Mellitus. Performed By: #### G RAMIRO #### Point of Care testing , Performed By: #### E SR #### [address] No Panel InformationOrdered By: Matteo Melo on 07-17-2024 Bedside Glucose Comment Glu2: cleaned meter [facility] X-ray reportOrdered By: Bruno Urias on 07-17-2024 Study report [facility] [place] [address] XRay Report Signed Patient: Jeremie Bennett MR#: [id number] : 1940 Acct:[id number] Age/Sex: 83 / M ADM Date: 5 Loc: [place] Room: Type: [facility] Attending Dr: Matteo Melo MD Copies [...] Urias Jr., D.O.07/17/2024 2:07 PM Dictation Location: [place] [address] Transcribed By: PERLA 07/17/24 140 Dictated By: Mario Urias Jr, DO 07/17/24 1407 Signed By: 07/17/24 1407 [facility] XR chest 1V portableon 07-17 XR chest 1V portable [facility] Main [place] [id number] XRay Report Signed Patient: Jeremie Bennett MR#: [id number] : 1940 Acct:[id number] Age/Sex: 83 / M ADM Date: 07/17/24 Loc: [place] Room: Type: [facility] Attending Dr: Matteo Melo MD Copies [...] THE SVC. NO PNEUMOTHORAX. Impression dictated by: Rick Shipley Jr..OAidan07/17/2024 2:07 PM Dictation Location: [facility]- Transcribed By: [facility] 07/17/24 1407 Dictated By: Mario Urias Jr, DO 07/17/24 1407 Signed By: 07/17/24 1407 Normal [facility] XR chest 1V portable [facility] Main [address] [address] XRay Report Signed Patient: Jeremie Bennett MR#: [id number] : 1940 Acct:[id number] Age/Sex: 83 / M ADM Date: 07/17/24 Loc: [place] Room: Type: [facility] Attending Dr: Matteo Melo MD [...] NO PNEUMOTHORAX. Impression dictated by: Mario Urias Jr. D.OAidan07/17/2024 2:07 PM Dictation Location: [place] [address] Transcribed By: PERLA 07/17/24 140 Dictated By: Mario Urias Jr, DO 07/17/241406 Signed By: 07/17/24 140 Normal [facility] Alanine aminotransferase [En zymatic activity/volume] in Serum or PlasmaOrdered By: Talib Faustin on 07-12-2024 ALT [Catalytic activity/Vol] Alanine aminotransferase [Enzymatic activity/volume] in Serum or Plasma 7-52 [facility] Albumin [Mass/volume] in Ser um or Plasma by Bromocresol green (BCG) dye binding methoOrdered By: Talib Faustin on 07-12-2024 Albumin BCG dye [Mass/Vol] Albumin [Mass/volume] in Serum or Plasma by Bromocresol green (BCG) dye binding metho 3.5-5.7 [facility] Alkaline phosphatase [Enzyma tic activity/volume] in Serum or PlasmaOrdered By: Talib Faustin on 07-12-2024 ALP [Catalytic activity/Vol] Alkaline phosphatase [Enzymatic activity/volume] in Serum or Plasma 34-104 [facility] Aspartate aminotransferase [ Enzymatic activity/volume] in Serum or PlasmaOrdered By: Talib Faustin on 07-12-2024 AST [Catalytic activity/Vol] Aspartate aminotransferase [Enzymatic activity/volume] in Serum or Plasma Low 13-39 [facility] Basophils Auto (Bld) [#/Vol] Ordered By: Talib Faustin on 07-12-2024 Basophils (Bld) [#/Vol] Automated basophil count 0.0-0.2 [facility] Basophils/100 WBC Auto (Bld) Ordered By: Talib Faustin on 07-12-2024 Basophils/100 WBC (Bld) Automated basophil % . [facility] Bilirubin.total [Mass/volume ] in Serum or PlasmaOrdered By: Talib Faustin on 07-12-2024 Bilirubin [Mass/Vol] Bilirubin.total [Mass/volume] in Serum or Plasma 0.3-1.0 [facility] Calcium [Mass/volume] in Ser um or PlasmaOrdered By: Talib Clementswi on 07-12-2024 Calcium [Mass/Vol] Calcium [Mass/volume ] in Serum or Plasma 8.6-10.3 [facility] Carbon dioxide, total [Moles /volume] in Serum or PlasmaOrdered By: rick CoRosemary Hargrove on 07-12-2024 CO2 [Moles/Vol] Carbon dioxide, tota l [Moles/volume] in Serum or Plasma 21.0-31.0 [facility] Chloride [Moles/volume] in S stephanie or PlasmaOrdered By: [facility] 07-12[facility]2024 Chloride [Moles/Vol] Chloride [Moles/vol ume] in Serum or Plasma 98-107 [facility] Complete Blood Count Auto Di ffon 07-12-2024 Basophils (Bld) [#/Vol] 0.0 10*3/uL Normal 0.0-0.2 [facility] Comment on above: Result Comment: PERF ORMED BY: [place] [address] PATHOLOGIST FILE SYSTEM INSTALLER HEBER SHANNON M.D. Performed By: #### C BC, CMP, MG #### [address] Performed By: #### U A #### [address] Basophils/100 WBC (Bld) 0.3 % Normal . [facility] Comment on above: Performed By: #### C BC, CMP, MG #### [address] Performed By: #### U A #### [address] Eosinophils (Bld) [#/Vol] 0.2 10*3/uL Normal 0.0-0.45 [facility] Comment on above: Performed By: #### C BC, CMP, MG #### [address] Performed By: #### U A #### [address] Eosinophils/100 WBC (Bld) 1.7 % Normal . [facility] Comment on above: Performed By: #### C BC, CMP, MG #### [address] Performed By: #### U A #### [address] Erythrocyte distribution width (RBC) [Ratio] 13.7 % Normal 12.0-14.8 [facility] Comment on above: Performed By: #### C BC, CMP, MG #### [address] Performed By: #### U A #### [address] Hematocrit (Bld) [Volume fraction] 38.0 % Low 38.8-50.0 [facility] Comment on above: Performed By: #### C BC, CMP, MG #### [address] Performed By: #### U A #### [address] Hemoglobin (Bld) [Mass/Vol] 12.6 g/dL Low 13.0-17.0 [facility] Comment on above: Performed By: #### C BC, CMP, MG #### [address] Performed By: #### U A #### [address] Lymphocytes (Bld) [#/Vol] 2.0 10*3/uL Normal 1.00-4.8 [facility] Comment on above: Performed By: #### C BC, CMP, MG #### [address] Performed By: #### U A #### [address] Lymphocytes/100 WBC (Bld) 19.2 % Normal . [facility] Comment on above: Performed By: #### C BC, CMP, MG #### [address] Performed By: #### U A #### [address] MCH (RBC) [Entitic mass] 30.7 pg Normal 27.5-35.2 [facility] Comment on above: Performed By: #### C BC, CMP, MG #### [address] Performed By: #### U A #### [address] MCV (RBC) [Entitic vol] 92.2 fL Normal 83.5-101 [facility] Comment on above: Performed By: #### C BC, CMP, MG #### [address] Performed By: #### U A #### [address] Mean Corpuscular HGB Conc 33.3 g/dL Normal 32.5-35.6 [facility] Comment on above: Performed By: #### C BC, CMP, MG #### [address] Performed By: #### U A #### [address] Monocytes (Bld) [#/Vol] 0.8 10*3/uL Normal 0.0-0.8 [facility] Comment on above: Performed By: #### C BC, CMP, MG #### [address] Performed By: #### U A #### [address] Monocytes/100 WBC (Bld) 7.5 % Normal . [facility] Comment on above: Performed By: #### C BC, CMP, MG #### [address] [address] [place] Performed By: #### U A #### [address] Neutrophils (Bld) [#/Vol] 7.3 10*3/uL Normal 1.8-7.7 [facility] Comment on above: Performed By: #### C BC, CMP, MG #### [address] Performed By: #### U A #### [address] Neutrophils/100 WBC (Bld) 71.3 % Normal . [facility] Comment on above: Performed By: #### C BC, CMP, MG #### [address] Performed By: #### U A #### [address] NRBC% 0.1 /100{WBC} Normal 0-0.5 The [facility] Comment on above: Performed By: #### C BC, CMP, MG #### [address] Performed By: #### U A #### [address] Platelet mean volume (Bld) [Entitic vol] 9.0 fL Normal 6.6-10.1 The [facility] Comment on above: Performed By: #### C BC, CMP, MG #### [address] Performed By: #### U A #### [address] Platelets (Bld) [#/Vol] 197 10*3/uL Normal 150-450 [facility] Comment on above: Performed By: #### C BC, CMP, MG #### [address] Performed By: #### U A #### [place] [address] [place] RBC (Bld) [#/Vol] 4.12 10*6/uL Normal 3.90-5.60 The [facility] Comment on above: Performed By: #### C BC, CMP, MG #### [address] Performed By: #### U A #### [address] WBC (Bld) [#/Vol] 10.2 10*3/uL Normal 4.1-10.5 The [facility] Comment on above: Performed By: #### C BC, CMP, MG #### [address] Performed By: #### U A #### [address] Comprehensive Metabolic Pane obdulio 07-12-2024 Albumin [Mass/Vol] 3.9 g/dL Normal 3.5-5.7 The Pending sale to [facility] Comment on above: Performed By: #### C BC, BMP #### [address] Performed By: #### U A #### [address] Albumin/Globulin [Mass ratio] 1.6 {ratio} Normal [facility] Comment on above: Performed By: #### C BC, BMP #### [facility] [address] [place] [address] Performed By: #### U A #### [address] ALP [Catalytic activity/Vol] 86 U/L Normal 34-104 [facility] Comment on above: Performed By: #### C BC, BMP #### [address] Performed By: #### U A #### [address] ALT [Catalytic activity/Vol] 15 U/L Normal 7-52 [facility] Comment on above: Performed By: #### C BC, BMP #### [facility] [address] [place] [address] Performed By: #### U A #### [address] Anion gap [Moles/Vol] 12.2 mmol/L Normal 6.0-15.0 Th e [facility] Comment on above: Performed By: #### C BC, BMP #### [facility] [address] [place] [address] Performed By: #### U A #### [address] AST [Catalytic activity/Vol] 11 U/L Low 13-39 [facility] Comment on above: Performed By: #### C BC, BMP #### [address] Performed By: #### U A #### [address] Bilirubin [Mass/Vol] 0.7 mg/dL Normal 0.3-1.0 [facility] Comment on above: Performed By: #### C BC, BMP #### [facility] [address] [place] [address] Performed By: #### U A #### [address] Calcium [Mass/Vol] 9.0 mg/dL Normal 8.6-10.3 The Pending sale to [facility] Comment on above: Performed By: #### C BC, BMP #### [facility] [address] [place] [address] Performed By: #### U A #### [facility] [address] [place] [address] Chloride [Moles/Vol] 102 mmol/L Normal 98-107 [facility] Comment on above: Performed By: #### C BC, BMP #### [facility] [address] [place] [address] Performed By: #### U A #### [address] CO2 [Moles/Vol] 27.6 mmol/L Normal 21.0-31.0 The [facility] Comment on above: Performed By: #### C BC, BMP #### [address] Performed By: #### U A #### [address] Creatinine [Mass/Vol] 1.01 mg/dL Normal 0.70-1.30 [facility] Comment on above: Performed By: #### C FREDDY, BMP #### [address] Performed By: #### U A #### [address] Creatinine Clr Calc Pharmacy 53.09 Normal [facility] Comment on above: Performed By: #### C FREDDY BMP #### [address] Performed By: #### U A #### [address] GFR/1.73 sq M.predicted MDRD (S/P/Bld) [Vol rate/Area] mL/min/{1.73_m2} Normal [facility] Comment on above: Performed By: #### C FREDDY BMP #### [address] Performed By: #### U A #### [address] Globulin (S) [Mass/Vol] 2.5 g/dL Normal [facility] Comment on above: Performed By: #### C FREDDY BMP #### [address] Performed By: #### U A #### [address] Glucose [Mass/Vol] 120 mg/dL High 70-100 The Pending sale to [facility] Comment on above: Result Comment: [place] Glucose Reference Range is dependent on time and content of last meal. Glucose of more than 200 mg/dL in a nonstressed, ambulatory subject supports the diagnosis of Diabetes Mellitus. ADA recommended reference range Performed By: #### C BC, BMP #### [address] Performed By: #### U A #### [address] Potassium [Moles/Vol] 4.8 mmol/L Normal 3.5-5.1 [facility] Comment on above: Performed By: #### C BC, BMP #### [address] Performed By: #### U A #### [address] Protein [Mass/Vol] 6.4 g/dL Normal 6.4-8.9 The Pending sale to [facility] Comment on above: Performed By: #### C BC, BMP #### [address] Performed By: #### U A #### [address] Sodium [Moles/Vol] 137 mmol/L Normal 136-145 The Pending sale to [facility] Comment on above: Performed By: #### C BC, BMP #### [address] Performed By: #### U A #### [address] Urea nitrogen [Mass/Vol] 26 mg/dL High 7-25 [facility] Comment on above: Performed By: #### C BC, BMP #### [address] Performed By: #### U A #### [address] Creatinine [Mass/volume] in Serum or PlasmaOrdered By: Talib Faustin on 07-12-2024 Creatinine [Mass/Vol] Creatinine [Mass/v olume] in Serum or Plasma 0.70-1.30 [facility] Eosinophils Auto (Bld) [#/Vo l]Ordered By: Talib Faustin on 07-12-2024 Eosinophils (Bld) [#/Vol] Automated eosinophil count 0.0-0.45 [facility] Eosinophils/100 WBC Auto (Bl d)Ordered By: rick Faustin on 07-12-2024 Eosinophils/100 WBC (Bld) Automated eosinophil % . [facility] Erythrocyte distribution wid th Auto (RBC) [Ratio]Ordered By: rick Faustin on 07-12-2024 Erythrocyte distribution width (RBC) [Ratio] Erythrocyte distribution width [Ratio] by Automated count 12.0-14.8 [facility] Globulin Calc (S) [Mass/Vol] Ordered By: rick Faustin on 07-12-2024 Globulin (S) [Mass/Vol] Serum globulin measurement by calculation (mass/volume) [facility] Glucose [Mass/volume] in Ser um or PlasmaOrdered By: rick Faustin on 07-12-2024 Glucose [Mass/Vol] Glucose [Mass/volume ] in Serum or Plasma High 70-100 [facility] Comment on above: ADA recommended refe rence rangeRandom Glucose Reference Range is dependent on time and content of last meal. Glucose of more than 200 mg/dL in a nonstressed, ambulatory subject supports the diagnosis of Diabetes Mellitus. Hematocrit Auto (Bld) [Volum e fraction]Ordered By: Talib Faustin on 07-12-2024 Hematocrit (Bld) [Volume fraction] Hematocrit [Volume Fraction] of Blood by Automated count Low 38.8-50.0 [facility] Hemoglobin [Mass/volume] in BloodOrdered By: Talib Faustin on 07-12-2024 Hemoglobin (Bld) [Mass/Vol] Hemoglobin [Mass/volume] in Blood Low 13.0-17.0 [facility] Leukocytes [#/volume] correc suzy for nucleated erythrocytes in Blood by Automated counOrdered By: Talib Faustin on 07-12-2024 WBC corrected for nucl RBC Auto (Bld) [#/Vol] Leukocytes [#/volume] corrected for nucleated erythrocytes in Blood by Automated coun 4.1-10.5 [facility] Lymphocytes Auto (Bld) [#/Vo l]Ordered By: Talib Faustin on 07-12-2024 Lymphocytes (Bld) [#/Vol] Lymphocytes [#/volume] in Blood by Automated count 1.00-4.8 [facility] Lymphocytes/100 WBC Auto (Bl d)Ordered By: Talib Faustin on 07-12-2024 Lymphocytes/100 WBC (Bld) Lymphocytes/100 leukocytes in Blood by Automated count . [facility] MCH Auto (RBC) [Entitic mass ]Ordered By: Talib Faustin on 07-12-2024 MCH (RBC) [Entitic mass] MCH [Entitic mass] by Automated count 27.5-35.2 [facility] MCHC Auto (RBC) [Mass/Vol]Or dered By: Talib Faustin on 07-12-2024 MCHC (RBC) [Mass/Vol] MCHC [Mass/volume] by Automated count 32.5-35.6 [facility] MCV Auto (RBC) [Entitic vol] Ordered By: Talib Faustin on 07-12-2024 MCV (RBC) [Entitic vol] MCV [Entitic volume] by Automated count 83.5-101 [facility] Magnesiumon 07-12-2024 Magnesium [Mass/Vol] 1.9 mg/dL Normal 1.9-2.7 [facility] Comment on above: Result Comment: PERF ORMED BY: [place] [address] PATHOLOGIST FILE SYSTEM INSTALLER HEBER SHANNON M.D. Performed By: #### C BC, BMP #### [facility] [address] [place] [address] Performed By: #### U A #### [facility] [address] [place] [address] Magnesium [Mass/volume] in S stephanie or PlasmaOrdered By: Talib Faustin on 07-12-2024 Magnesium [Mass/Vol] Magnesium [Mass/vol ume] in Serum or Plasma 1.9-2.7 [facility] Monocytes Auto (Bld) [#/Vol] Ordered By: Talib Faustin on 07-12-2024 Monocytes (Bld) [#/Vol] Automated blood monocyte count 0.0-0.8 [facility] Monocytes/100 WBC Auto (Bld) Ordered By: Talib Faustin on 07-12-2024 Monocytes/100 WBC (Bld) Automated monocyte % . [facility] Neutrophils Auto (Bld) [#/Vo l]Ordered By: Talib Faustin on 07-12-2024 Neutrophils (Bld) [#/Vol] Neutrophils [#/volume] in Blood by Automated count 1.8-7.7 [facility] Neutrophils/100 WBC Auto (Bl d)Ordered By: Talib Faustin on 07-12-2024 Neutrophils/100 WBC (Bld) Automated neutrophil % . [facility] No Panel InformationOrdered By: Talib Faustin on 07-12-2024 Estimated GFR (CKD-EPI) > 60.0 mL/Min [facility] Creatinine Clearance (Chem 53.09 [facility] Nucleated erythrocytes [Pres ence] in Blood by Automated countOrdered By: Talib Faustin on 07-12-2024 Nucleated RBC Auto Ql (Bld) Nucleated erythrocytes [Presence] in Blood by Automated count 0-0.5 [facility] Platelet mean volume Auto (B ld) [Entitic vol]Ordered By: Talib Faustin on 07-12-2024 Platelet mean volume (Bld) [Entitic vol] Platelet mean volume [Entitic volume] in Blood by Automated count 6.6-10.1 [facility] Platelets Auto (Bld) [#/Vol] Ordered By: Talib Faustin on 07-12-2024 Platelets (Bld) [#/Vol] Platelets [#/volume] in Blood by Automated count 150-450 [facility] Potassium [Moles/volume] in Serum or PlasmaOrdered By: Talib Faustin on 07-12-2024 Potassium [Moles/Vol] Potassium [Moles/v olume] in Serum or Plasma 3.5-5.1 [facility] Protein [Mass/volume] in Ser um or PlasmaOrdered By: Talib Faustin on 07-12-2024 Protein [Mass/Vol] Protein [Mass/volume ] in Serum or Plasma 6.4-8.9 [facility] RBC Auto (Bld) [#/Vol]Ordere d By: Talib Faustin on 07-12-2024 RBC (Bld) [#/Vol] Erythrocytes [#/volu me] in Blood by Automated count 3.90-5.60 [facility] Serum or plasma albumin/glob ulin mass ratioOrdered By: Talib Faustin on 07-12-2024 Albumin/Globulin [Mass ratio] Serum or plasma albumin/globulin mass ratio [facility] Serum or plasma anion gap de terminationOrdered By: Talib Faustin on 07-12-2024 Anion gap [Moles/Vol] Serum or plasma an ion gap determination 6.0-15.0 [facility] Sodium [Moles/volume] in Ser um or PlasmaOrdered By: Talib Faustin on 07-12-2024 Sodium [Moles/Vol] Sodium [Moles/volume ] in Serum or Plasma 136-145 [facility] Urea nitrogen [Mass/volume] in Serum or PlasmaOrdered By: Talib Faustin on 07-12-2024 Urea nitrogen [Mass/Vol] Urea nitrogen [Mass/volume] in Serum or Plasma High 7-25 [facility] WBC Auto (Bld) [#/Vol]Ordere d By: Talib Faustin on 07-12-2024 WBC (Bld) [#/Vol] Leukocytes [#/volume ] in Blood by Automated count 4.1-10.5 [facility] Bhavin 07-10-2024 ANES ----- ----- Attestation signed by [...] ----- Patient: Jeremie Bennett Procedure Information Date/Time: 07/10/24 0830 Procedure: PPM generator change - dual Location: [facility] / [facility] (Cath) Providers: Stacey Patel MD Clinical information reviewed: Allergies Meds Physical Exam Airway Mallampati: III Cardiovascular Rhythm: regular Rate: normal (-) murmur Dental Pulmonary (-) decreased breath sounds Abdominal (+) obese Anesthesia Plan ASA 3 other (Conscious Sedation) intravenous induction Anesthetic plan and risks discussed with patient. Use of blood products discussed with patient who consented to blood products. Plan discussed with attending. Additional Equipment Requests Normal [facility] HPon 07-10-2024 ----- ----- Attestation signed [...] an additional personal documentation from me. ----- DC Electrophysiology Consult Note DC Cardiology Reason for visit: gen change 07/10/2024 [...] ECG Bradycardia Coronary artery disease Diabetes mellitus ([facility]) Heart valve disease Hyperlipidemia VT (ventricular tachycardia) ([facility]) PSH: Surgical History Past Surgical History: Procedure Laterality Date ABLATION OF DYSRHYTHMIC FOCUS CARDIAC CATHETERIZATION INSERT / REPLACE / REMOVE PACEMAKER SH: Social Determinants of Health Tobacco Use: Medium Risk (05/11/2024) Received from [facility] Patient History Smoking Tobacco Use: Former Smokeless Tobacco Use: Former Passive Exposure: Not on file Alcohol Use: Not on file Financial Resource Strain: Not on file Food Insecurity: Not on file Transportation Needs: Not on file Physical Activity: Not on file Stress: Not on file Social Connections: Not on file Intimate Partner Violence: Unknown (07/08/2023) DC Safety & Environment Fear of Current or Ex-Partner: Not on file Emotionally Abused: Not on file Physically Abused: Not on file Sexually Abused: Not on file Physically or Sexually Abused: Not on file Depression: Not at risk (04/07/2024) Received from [facility] PHQ-2 Patient Health Questionnaire-2 Score: 0 [...] b (more content not included)... Normal [facility] NURSNOTEon 07-10-2024 NURSNOTE RN educated pt [...] off of unit with all of belongings. [facility] NURSNOTE CHG wipes and betadi ne nasal swabs completed. [facility] Orders Onlyon 07-10-2024 Orders Only [id number] [address] P 1940 M Date Provider Department Center 07/10/2024 ELIF GONZALEZ [facility] Family History Problem Relation Age of Onset Coronary artery disease Mother Kidney disease Mother Heart failure Mother Family Status - Relation Status Age at Mother [facility] CBC w/ Auto DiffOrdered By: SYSTEM SYSTEM on 07-03-2024 Band form neutrophils/100 WBC (Bld) 8.0 % High 0.0-6.0 [facility] Comment on above: Performed By: #### 2 [id number] #### [facility] [address] [place] [address] Basophils (Bld) [#/Vol] 0.0 E9/L Normal 0.0-0.2 [facility] Comment on above: Performed By: #### 2 [id number] #### [facility] [address] [place] [address] Eosinophils (Bld) [#/Vol] 0.0 E9/L Normal 0.0-0.5 [facility] Comment on above: Performed By: #### 2 [id number] #### [facility] [address] [place] [address] Eosinophils/100 WBC (Bld) 0.0 % Normal 0.0-8.0 [facility] Comment on above: Performed By: #### 2 [id number] #### [facility] [address] [place] [address] Erythrocyte distribution width (RBC) [Ratio] 13.9 % Normal 10.9-14.2 [facility] Comment on above: Performed By: #### 2 [id number] #### [facility] [address] [place] [address] Hematocrit (Bld) [Volume fraction] 39.7 % Normal 37.7-49.0 [facility] Comment on above: Performed By: #### 2 [id number] #### [facility] [address] [place] [address] Hemoglobin (Bld) [Mass/Vol] 13.3 g/dL Low 13.5-17.5 [facility] Comment on above: Performed By: #### 2 [id number] #### [facility] [address] [place] [address] Lymphocytes (Bld) [#/Vol] 2.2 E9/L Normal 1.0-4.0 [facility] Comment on above: Performed By: #### 2 [id number] #### [facility] [address] [place] [address] Lymphocytes/100 WBC (Bld) 20.0 % Normal 14.0-50.0 [facility] Comment on above: Performed By: #### 2 [id number] #### [facility] [address] [place] [address] MCH (RBC) [Entitic mass] 31.3 pg Normal 27.0-34.0 [facility] Comment on above: Performed By: #### 2 [id number] #### [facility] [address] [place] [address] MCHC (RBC) [Mass/Vol] 33.4 g/dL Normal 31.4-36.0 [facility] Comment on above: Performed By: #### 2 [id number] #### [place] [facility] [address] [place] [address] MCV (RBC) [Entitic vol] 93.5 fL Normal 80.0-100.0 [facility] Comment on above: Performed By: #### 2 [id number] #### [place] [facility] [address] [place] [address] Monocytes (Bld) [#/Vol] 0.6 E9/L Normal 0.2-1.0 [facility] Comment on above: Performed By: #### 2 [id number] #### [facility] [address] [place] [address] Myelocytes/100 WBC (Bld) 3.0 % High 0.0-0.0 [facility] Comment on above: Performed By: #### 2 [id number] #### [facility] [address] [place] [address] Neutrophils (Bld) [#/Vol] 7.4 E9/L Invalid Interpretation Code [facility] Comment on above: Performed By: #### 2 [id number] #### [facility] [address] [place] [address] Platelet 271.0 E9/L Normal 150.0-500. 0 [facility] Comment on above: Performed By: #### 2 [id number] #### [place] [facility] [address] [place] [address] Platelet mean volume (Bld) [Entitic vol] 9.2 fL Normal 6.4-10.8 [facility] Comment on above: Performed By: #### 2 [id number] #### [place] [facility] [address] [place] [address] RBC (Bld) [#/Vol] 4.2 E12/L Low 4.3-5.9 [facility] Comment on above: Performed By: #### 2 [id number] #### [place] [facility] [address] [place] [address] Segmented neutrophils/100 WBC (Bld) 62.0 % Normal 36.0-75.0 [facility] Comment on above: Performed By: #### 2 [id number] #### [facility] [address] [place] [address] Variant lymphocytes/100 WBC (Bld) 1.0 % High 0.0-0.0 [facility] Comment on above: Performed By: #### 2 [id number] #### [facility] [address] [place] [address] WBC corrected for nucl RBC Auto (Bld) [#/Vol] 10.5 E9/L Normal 4.0-11.0 Remisol H rip Comment on above: Performed By: #### 2 [id number] #### [facility] [address] [place] [address] CBC w/ Auto Diffon 5 RBC size Nom (Bld) NORMAL Invalid Interpretation Code [facility] Comment on above: Performed By: #### 2 [id number] #### [facility] [address] [place] [address] CHEMISTRYOrdered By: SYSTEM SYSTEM on 07-03-2024 Albumin/Globulin [...] Comment on above: Performed By: #### 2 [id number] #### [facility] [address] [place] [address] Anion gap [Moles/Vol] 10 mmol/L Normal 6-16 Rem isol Chem Comment on above: Performed By: #### 2 [id number] #### [facility] [address] [place] [address] Bilirubin [Mass/Vol] 0.3 mg/dL Normal 0.0-1.1 Chris janee Chem Comment on above: Performed By: #### 2 [id number] #### [facility] [address] [place] [address] Calcium [Mass/Vol] 9.1 mg/dL Normal 8.9-11.1 Remiso l Chem Comment on above: Performed By: #### 2 [id number] #### [facility] [address] [place] [address] Chloride [Moles/Vol] 107 mmol/L Normal 101-111 Chris janee Chem Comment on above: Performed By: #### 2 [id number] #### [facility] [address] [place] [address] CO2 [Moles/Vol] 28 mmol/L Normal 21-31 Remisol C hem Comment on above: Performed By: #### 2 [id number] #### [facility] [address] [place] [address] Creatinine [Mass/Vol] 1.0 mg/dL Normal 0.5-1.3 Rem isol Chem Comment on above: Performed By: #### 2 [id number] #### [facility] [address] [place] [address] Globulin (S) [Mass/Vol] 2.7 g/dL Normal 1.4-4.0 Remisol Chem Comment on above: Performed By: #### 2 [id number] #### [facility] [address] [place] [address] Glucose [Mass/Vol] 138 mg/dL Normal 55-199 Remiso l Chem Comment on above: Performed By: #### 2 [id number] #### [facility] [address] [place] [address] Potassium [Moles/Vol] 4.5 mmol/L Normal 3.5-5.3 Rem isol Chem Comment on above: Performed By: #### 2 [id number] #### [facility] [address] [place] [address] Protein [Mass/Vol] 6.7 g/dL Normal 6.0-7.8 Remiso l Chem Comment on above: Performed By: #### 2 [id number] #### [facility] [address] [place] [address] Sodium [Moles/Vol] 140 mmol/L Normal 135-145 Remiso l Chem Comment on above: Performed By: #### 2 [id number] #### [facility] [address] [place] [address] Urea nitrogen [Mass/Vol] 20 mg/dL Normal 5-21 Remisol Chem Comment on above: Performed By: #### 2 [id number] #### [facility] [address] [place] [address] CMPon 07-03-2024 Albumin/Globulin (S) [Mass conc ratio] 1.5 Normal 1.1-2.2 [facility] Comment on above: Performed By: #### 2 [id number] #### [facility] [address] [place] [address] ALP [Catalytic activity/Vol] 70 Int._Unit/L Normal 21-98 [facility] Comment on above: Performed By: #### 2 [id number] #### [facility] [address] [place] [address] ALT No additional P-5'-P [Catalytic activity/Vol] 24 Int._Unit/L Normal 6-46 [facility] Comment on above: Performed By: #### 2 [id number] #### [facility] [address] [place] [address] AST [Catalytic activity/Vol] 20 Int._Unit/L Normal 5-43 [facility] Comment on above: Performed By: #### 2 [id number] #### [facility] [address] [place] [address] Urea nitrogen/Creatinine [Mass ratio] 20 No Units Normal 10-20 [facility] Comment on above: Performed By: #### 2 [id number] #### [facility] [address] [place] [address] HEMATOLOGYOrdered By: SYSTEM SYSTEM on 07-03-2024 Basophils/100 [...] Comment on above: Performed By: #### 2 [id number] #### [place] [facility] [address] [place] [address] eGFROrdered By: SYSTEM [employer] on 07-03-2024 eGFR 74 mL/min/1.73 m2 Normal >=59 Remisol Chem Comment on above: Performed By: #### 1 [id number] #### [place] [facility] [address] [place] [address] 36on 06-28-[address] Arellano pt w as called to schedule cardiac clearance appt. Pt stated he would rather be seen in [place], so I advised pt to call and schedule with them. Normal [facility] No Panel Informationon 06-23 [employer] Audio indicated a mild to severe sensorineural hearing loss 250-8000 Hz, bilaterally. [facility] Basic Metabolic Panelon Anion gap [Moles/Vol] 8.5 mmol/L Normal 6.0-15.0 [facility] Comment on above: Performed By: #### C BC, BMP #### [facility] [address] [place] [address] [place] Performed By: #### C MP, CBC #### [facility] [address] [place] [address] [place] Calcium [Mass/Vol] 9.0 mg/dL Normal 8.6-10.3 The Pending sale to [facility] Comment on above: Result Comment: PERF ORMED BY: [place] [address] PATHOLOGIST FILE SYSTEM INSTALLER HEBER SHANNON M.D. Performed By: #### C BC, BMP #### [address] Performed By: #### C MP, CBC #### [address] Chloride [Moles/Vol] 110 mmol/L High 98-107 [facility] Comment on above: Performed By: #### C BC, BMP #### [address] Performed By: #### C MP, CBC #### [address] CO2 [Moles/Vol] 24.5 mmol/L Normal 21.0-31.0 [facility] Comment on above: Performed By: #### C BC, BMP #### [address] Performed By: #### C MP, CBC #### [address] Creatinine [Mass/Vol] 0.97 mg/dL Normal 0.70-1.30 [facility] Comment on above: Performed By: #### C BC, BMP #### [address] Performed By: #### C MP, CBC #### [address] GFR/1.73 sq M.predicted MDRD (S/P/Bld) [Vol rate/Area] mL/min/{1.73_m2} Normal [facility] Comment on above: Performed By: #### C BC, BMP #### [address] Performed By: #### C MP, CBC #### [address] Glucose [Mass/Vol] 118 mg/dL High 70-100 The Pending sale to [facility] Comment on above: Result Comment: [place] Glucose Reference Range is dependent on time and content of last meal. Glucose of more than 200 mg/dL in a nonstressed, ambulatory subject supports the diagnosis of Diabetes Mellitus. ADA recommended reference range Performed By: #### C BC, BMP #### [address] Performed By: #### C MP, CBC #### [address] Potassium [Moles/Vol] 4.0 mmol/L Normal 3.5-5.1 [facility] Comment on above: Performed By: #### C BC, BMP #### [address] Performed By: #### C MP, CBC #### [address] Sodium [Moles/Vol] 139 mmol/L Normal 136-145 The Pending sale to [facility] Comment on above: Performed By: #### C BC, BMP #### [address] Performed By: #### C MP, CBC #### [address] Urea nitrogen [Mass/Vol] 19 mg/dL Normal 7-25 [facility] Comment on above: Performed By: #### C BC, BMP #### [address] Performed By: #### C MP, CBC #### [address] Basic metabolic 1998 panelon 06-22-2024 Anion gap [Moles/Vol] 8.5 mmol/L 6.0 - 15.0 meq/L [facility] Calcium [Mass/Vol] 9 mg/dL 8.6 - 10. 3 mg/dL [facility] Chloride [Moles/Vol] 110 mmol/L High 98 - 10 7 mmol/L [facility] CO2 [Moles/Vol] 24.5 mmol/L 21.0 - 31.0 mmol/L [facility] Creatinine (U) [Mass/Vol] 0.97 mg/dL 0.70 - 1.30 mg/dL [facility] ESTIMATED GFR mL/Min [facility] Glucose [Mass/Vol] 118 mg/dL High 70 - 100 mg/dL [facility] Comment on above: Random Glucose Refer ence Range is dependent on time and content of last meal. Glucose of more than 200 mg/dL in a nonstressed, ambulatory subject supports the diagnosis of Diabetes Mellitus. ADA recommended reference range Interpretation and review of laboratory results Abnormal [facility] Potassium [Moles/Vol] 4 mmol/L 3.5 - 5.1 mmol/L [facility] Sodium [Moles/Vol] 139 mmol/L 136 - 145 mmol/L [facility] Urea nitrogen [Mass/Vol] 19 mg/dL 7 - 25 mg/dL [facility] Basophils Auto (Bld) [#/Vol] Ordered By: Matteo Melo on 06-22-2024 Basophils (Bld) [#/Vol] Automated basophil count 0.0-0.2 [facility] Basophils/100 WBC Auto (Bld) Ordered By: Matteo Melo on 06-22-2024 Basophils/100 WBC (Bld) Automated basophil % . [facility] CBC W Auto Differential pane l (Bld)on 06-22-2024 Basophils (Bld) [#/Vol] 0.1 10*3/uL 0.0 - 0.2 10*3/uL [facility] Basophils/100 WBC Manual cnt (Syn fld) 0.7 % . [facility] Eosinophils (Bld) [#/Vol] 0.4 10*3/uL 0.0 - 0.45 10*3/uL [facility] Eosinophils/100 WBC Manual cnt (Syn fld) 5 % . [facility] Erythrocyte distribution width (RBC) [Ratio] 13.4 % 12.0 - 14.8 % [facility] Hematocrit (Bld) [Volume fraction] 40.7 % 38.8 - 50.0 % [facility] Hemoglobin (Bld) [Mass/Vol] 13.7 g/dL 13.0 - 17.0 g/dL [facility] Lymphocytes (Bld) [#/Vol] 2.5 10*3/uL 1.00 - 4.8 10*3/uL [facility] Lymphocytes/100 WBC Manual cnt (Syn fld) 30.2 % . [facility] MCH (RBC) [Entitic mass] 31 pg 27.5 - 35.2 pg [facility] MCHC (RBC) [Mass/Vol] 33.7 g/dL 32.5 - 35.6 g/dL [facility] MCV (RBC) [Entitic vol] 92 fL 83.5 - 101 fL [facility] Monocytes (Bld) [#/Vol] 0.7 10*3/uL 0.0 - 0.8 10*3/uL [facility] Monocytes+Macrophages/ 100 WBC Manual cnt (Syn fld) 8.8 % . [facility] Neutrophils (Bld) [#/Vol] 4.6 10*3/uL 1.8 - 7.7 10*3/uL [facility] Neutrophils/100 WBC Manual cnt (Syn fld) 55.3 % . [facility] NRBC 0.2 /100{WBC} 0 - 0.5 /100{WBC} [facility] Platelet mean volume (Bld) [Entitic vol] 8.9 fL 6.6 - 10.1 fL [facility] Platelets (Bld) [#/Vol] 234 10*3/uL 150 - 450 10*3/uL [facility] RBC LM.HPF (Urine sed) [#/Area] 4.43 10*6/uL 3.90 - 5.60 10*6/uL [facility] WBC (Bld) [#/Vol] 8.4 10*3/uL 4.1 - 10.5 10*3/uL [facility] WBC LM.HPF (Urine sed) [#/Area] 8.4 10*3/uL 4.1 - 10.5 10*3/uL [facility] Calcium [Mass/volume] in Ser um or PlasmaOrdered By: Matteo Melo on 06-22-2024 Calcium [Mass/Vol] Calcium [Mass/volume ] in Serum or Plasma 8.6-10.3 [facility] Carbon dioxide, total [Moles /volume] in Serum or PlasmaOrdered By: Matteo Melo on 06-22-2024 CO2 [Moles/Vol] Carbon dioxide, tota l [Moles/volume] in Serum or Plasma 21.0-31.0 [facility] Chloride [Moles/volume] in S stephanie or PlasmaOrdered By: Matteo Melo on 06-22-2024 Chloride [Moles/Vol] Chloride [Moles/vol ume] in Serum or Plasma High 98-107 [facility] Complete Blood Count Auto Di ffon 06-22-2024 Basophils (Bld) [#/Vol] 0.1 10*3/uL Normal 0.0-0.2 [facility] Comment on above: Result Comment: PERF ORMED BY: [place] [address] PATHOLOGIST FILE SYSTEM INSTALLER HEBER SHANNON M.D. Performed By: #### C BC, BMP #### [address] Performed By: #### C MP, CBC #### [address] Basophils/100 WBC (Bld) 0.7 % Normal . [facility] Comment on above: Performed By: #### C BC, BMP #### [address] Performed By: #### C MP, CBC #### [address] Eosinophils (Bld) [#/Vol] 0.4 10*3/uL Normal 0.0-0.45 [facility] Comment on above: Performed By: #### C BC, BMP #### [address] Performed By: #### C MP, CBC #### [address] Eosinophils/100 WBC (Bld) 5.0 % Normal . [facility] Comment on above: Performed By: #### C BC, BMP #### [address] Performed By: #### C MP, CBC #### [address] Erythrocyte distribution width (RBC) [Ratio] 13.4 % Normal 12.0-14.8 [facility] Comment on above: Performed By: #### C BC, BMP #### [address] Performed By: #### C MP, CBC #### [address] Hematocrit (Bld) [Volume fraction] 40.7 % Normal 38.8-50.0 [facility] Comment on above: Performed By: #### C BC, BMP #### [address] Performed By: #### C MP, CBC #### [address] Hemoglobin (Bld) [Mass/Vol] 13.7 g/dL Normal 13.0-17.0 [facility] Comment on above: Performed By: #### C BC, BMP #### [address] Performed By: #### C MP, CBC #### [address] Lymphocytes (Bld) [#/Vol] 2.5 10*3/uL Normal 1.00-4.8 [facility] Comment on above: Performed By: #### C BC, BMP #### [address] Performed By: #### C MP, CBC #### [address] Lymphocytes/100 WBC (Bld) 30.2 % Normal . [facility] Comment on above: Performed By: #### C BC, BMP #### [address] Performed By: #### C MP, CBC #### [address] MCH (RBC) [Entitic mass] 31.0 pg Normal 27.5-35.2 [facility] Comment on above: Performed By: #### C BC, BMP #### [address] Performed By: #### C MP, CBC #### [address] MCV (RBC) [Entitic vol] 92.0 fL Normal 83.5-101 [facility] Comment on above: Performed By: #### C BC, BMP #### [address] Performed By: #### C MP, CBC #### [address] Mean Corpuscular HGB Conc 33.7 g/dL Normal 32.5-35.6 [facility] Comment on above: Performed By: #### C BC, BMP #### [address] Performed By: #### C MP, CBC #### [address] Monocytes (Bld) [#/Vol] 0.7 10*3/uL Normal 0.0-0.8 [facility] Comment on above: Performed By: #### C BC, BMP #### [address] Performed By: #### C MP, CBC #### [address] Monocytes/100 WBC (Bld) 8.8 % Normal . [facility] Comment on above: Performed By: #### C BC, BMP #### [address] Performed By: #### C MP, CBC #### [address] Neutrophils (Bld) [#/Vol] 4.6 10*3/uL Normal 1.8-7.7 [facility] Comment on above: Performed By: #### C BC, BMP #### [address] Performed By: #### C MP, CBC #### [address] Neutrophils/100 WBC (Bld) 55.3 % Normal . [facility] Comment on above: Performed By: #### C BC, BMP #### [address] Performed By: #### C MP, CBC #### [address] NRBC% 0.2 /100{WBC} Normal 0-0.5 [facility] Comment on above: Performed By: #### C BC, BMP #### [address] Performed By: #### C MP, CBC #### [address] Platelet mean volume (Bld) [Entitic vol] 8.9 fL Normal 6.6-10.1 [facility] Comment on above: Performed By: #### C BC, BMP #### [address] Performed By: #### C MP, CBC #### [address] Platelets (Bld) [#/Vol] 234 10*3/uL Normal 150-450 [facility] Comment on above: Performed By: #### C BC, BMP #### [address] Performed By: #### C MP, CBC #### [address] RBC (Bld) [#/Vol] 4.43 10*6/uL Normal 3.90-5.60 The [facility] Comment on above: Performed By: #### C BC, BMP #### [address] Performed By: #### C MP, CBC #### [address] WBC (Bld) [#/Vol] 8.4 10*3/uL Normal 4.1-10.5 The Pending sale to [facility] Comment on above: Performed By: #### C BC, BMP #### [facility] [address] [place] [address] Performed By: #### C MP, CBC #### [facility] [address] [place] [address] Creatinine [Mass/volume] in Serum or PlasmaOrdered By: Matteo Melo on 06-22-2024 Creatinine [Mass/Vol] Creatinine [Mass/v olume] in Serum or Plasma 0.70-1.30 [facility] ECG 12 lead ECGon 06-22-2024 ECG 12 lead ECG [facility] [place] [address] Electrocardiograph Report Signed Patient: Jeremie Bennett MR#: [id number] : 1940 Acct:[id number] Age/Sex: 83 / M ADM Date: 06/22/24 Loc: Room: Type: [facility] Attending Dr: Matteo Melo MD Ordering Provider: [...] Santiago MD 0 06/23/24 1517 Normal [facility] ECG 12 lead ECG [facility] [place] [address] Electrocardiograph Report Signed Patient: Jeremie Bennett MR#: [id number] : 1940 Acct:[id number] Age/Sex: 83 / M ADM Date: 06/22/24 Loc: PS Room: Type: [facility] Attending Dr: Matteo Melo MD Ordering Provider: [...] Santiago MD 0 06/23/24 1517 Normal [facility] Eosinophils Auto (Bld) [#/Vo l]Ordered By: Matteo Melo on 06-22-2024 Eosinophils (Bld) [#/Vol] Automated eosinophil count 0.0-0.45 [facility] Eosinophils/100 WBC Auto (Bl d)Ordered By: Matteo Melo on 06-22-2024 Eosinophils/100 WBC (Bld) Automated eosinophil % . [facility] Erythrocyte distribution wid th Auto (RBC) [Ratio]Ordered By: Matteo Melo on 06-22-2024 Erythrocyte distribution width (RBC) [Ratio] Erythrocyte distribution width [Ratio] by Automated count 12.0-14.8 [facility] Glucose [Mass/volume] in Ser um or PlasmaOrdered By: Matteo Melo on 06-22-2024 Glucose [Mass/Vol] Glucose [Mass/volume ] in Serum or Plasma High 70-100 [facility] Comment on above: ADA recommended refe rence rangeRandom Glucose Reference Range is dependent on time and content of last meal. Glucose of more than 200 mg/dL in a nonstressed, ambulatory subject supports the diagnosis of Diabetes Mellitus. Hematocrit Auto (Bld) [Volum e fraction]Ordered By: Matteo Melo on 06-22-2024 Hematocrit (Bld) [Volume fraction] Hematocrit [Volume Fraction] of Blood by Automated count 38.8-50.0 [facility] Hemoglobin [Mass/volume] in BloodOrdered By: Matteo Melo on 06-22-2024 Hemoglobin (Bld) [Mass/Vol] Hemoglobin [Mass/volume] in Blood 13.0-17.0 [facility] Leukocytes [#/volume] correc suzy for nucleated erythrocytes in Blood by Automated counOrdered By: Matteo Melo on 06-22-2024 WBC corrected for nucl RBC Auto (Bld) [#/Vol] Leukocytes [#/volume] corrected for nucleated erythrocytes in Blood by Automated coun 4.1-10.5 [facility] Lymphocytes Auto (Bld) [#/Vo l]Ordered By: Matteo Melo on 06-22-2024 Lymphocytes (Bld) [#/Vol] Lymphocytes [#/volume] in Blood by Automated count 1.00-4.8 [facility] Lymphocytes/100 WBC Auto (Bl d)Ordered By: Mattoe Melo on 06-22-2024 Lymphocytes/100 WBC (Bld) Lymphocytes/100 leukocytes in Blood by Automated count . [facility] MCH Auto (RBC) [Entitic mass ]Ordered By: Matteo Melo on 06-22-2024 MCH (RBC) [Entitic mass] MCH [Entitic mass] by Automated count 27.5-35.2 [facility] MCHC Auto (RBC) [Mass/Vol]Or dered By: Matteo Melo on 06-22-2024 MCHC (RBC) [Mass/Vol] MCHC [Mass/volume] by Automated count 32.5-35.6 [facility] MCV Auto (RBC) [Entitic vol] Ordered By: Matteo Melo on 06-22-2024 MCV (RBC) [Entitic vol] MCV [Entitic volume] by Automated count 83.5-101 [facility] Monocytes Auto (Bld) [#/Vol] Ordered By: Matteo Melo on 06-22-2024 Monocytes (Bld) [#/Vol] Automated blood monocyte count 0.0-0.8 [facility] Monocytes/100 WBC Auto (Bld) Ordered By: Matteo Melo on 06-22-2024 Monocytes/100 WBC (Bld) Automated monocyte % . [facility] Neutrophils Auto (Bld) [#/Vo l]Ordered By: Matteo Melo on 06-22-2024 Neutrophils (Bld) [#/Vol] Neutrophils [#/volume] in Blood by Automated count 1.8-7.7 [facility] Neutrophils/100 WBC Auto (Bl d)Ordered By: Matteo Melo on 06-22-2024 Neutrophils/100 WBC (Bld) Automated neutrophil % . [facility] No Panel InformationOrdered By: Matteo Melo on 06-22-2024 Estimated GFR (CKD-EPI) > 60.0 mL/Min [facility] Creatinine Clearance (Chem N/A [facility] Nucleated erythrocytes [Pres ence] in Blood by Automated countOrdered By: Matteo Melo on 06-22-2024 Nucleated RBC Auto Ql (Bld) Nucleated erythrocytes [Presence] in Blood by Automated count 0-0.5 [facility] Platelet mean volume Auto (B ld) [Entitic vol]Ordered By: Matteo Melo on 06-22-2024 Platelet mean volume (Bld) [Entitic vol] Platelet mean volume [Entitic volume] in Blood by Automated count 6.6-10.1 [facility] Platelets Auto (Bld) [#/Vol] Ordered By: Matteo Melo on 06-22-2024 Platelets (Bld) [#/Vol] Platelets [#/volume] in Blood by Automated count 150-450 [facility] Potassium [Moles/volume] in Serum or PlasmaOrdered By: Matteo Melo on 06-22-2024 Potassium [Moles/Vol] Potassium [Moles/v olume] in Serum or Plasma 3.5-5.1 [facility] RBC Auto (Bld) [#/Vol]Ordere d By: Matteo Melo on 06-22-2024 RBC (Bld) [#/Vol] Erythrocytes [#/volu me] in Blood by Automated count 3.90-5.60 [facility] Serum or plasma anion gap de terminationOrdered By: Matteo Melo on 06-22-2024 Anion gap [Moles/Vol] Serum or plasma an ion gap determination 6.0-15.0 [facility] Sodium [Moles/volume] in Ser um or PlasmaOrdered By: Matteo Melo on 06-22-2024 Sodium [Moles/Vol] Sodium [Moles/volume ] in Serum or Plasma 136-145 [facility] Urea nitrogen [Mass/volume] in Serum or PlasmaOrdered By: Matteo Melo on 06-22-2024 Urea nitrogen [Mass/Vol] Urea nitrogen [Mass/volume] in Serum or Plasma 7-25 [facility] WBC Auto (Bld) [#/Vol]Ordere d By: Matteo Melo on 06-22-2024 WBC (Bld) [#/Vol] Leukocytes [#/volume ] in Blood by Automated count 4.1-10.5 [facility] Surgical pathology studyon 0 06-05-2024 Surgical pathology study Pathology report.total SEE COMMENT Surgical Pathology Case: [id number] Authorizing Provider: Mary Schneider MD Collected: 06/05/2024 1609 Ordering Location: [facility] Received: 06/05/[address] [place] [address] Pathologist: Alessandro Arzate DDS Specimen: LYMPH NODE BIOPSY Path report.final diagnosis SEE COMMENT Lymph node, core biopsy: - Metastatic non-keratinizing squamous cell carcinoma, see note. 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 P16 by immunohistochemistry: Equivocal. 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 Reference Range (p16): Negative: <50% strong nuclear [...] is submitted in toto in one cassette. [facility] AP ASR DISCLAIMER One or more of the reagents used to perform assays on this specimen MAY have contained components considered to be analyte specific reagents (ASR's). ASR's have not been cleared or approved by the U.S. Food and Drug Administration. These assays were developed and their performance characteristics determined by the Department of Pathology at [facility]. The FDA does not require [...] and negative controls which stained appropriately. Normal [facility] US GUIDED BIOPSY LYMPH NODE SUPERFICIALon 06-05-2024 US GUIDED BIOPSY LYMPH NODE SUPERFICIAL Interpreted By: Gaby Perez and Guirguis James STUDY: US GUIDED BIOPSY LYMPH NODE SUPERFICIAL; 06/05/2024 1:53 pm INDICATION: Signs/Symptoms:left neck enlarged lymph node seen on PET. COMPARISON: PET-CT dated 03/27/2024 ACCESSION NUMBER(S): [id number] ORDERING CLINICIAN: MARY SCHNEIDER TECHNIQUE: INTERVENTIONALIST(S): MD [...] intravenous fentanyl 50mcg and versed 0.5mg from 8148-0067. The physician was assisted by an independent [...] findings as stated. Performed and dictated at [facility]. MACRO: None. Signed by: Gaby Perez 06/05/2024 9:02 PM Dictation workstation: [id number] [facility] US guidance for percutaneous biopsy of [...] findings as stated. Performed and dictated at [facility]. MACRO: None. Signed by: Gaby Perez 06/05/2024 9:02 PM Dictation workstation: [id number] MMODAL Interpreted By: Gaby Perez and Guirguis James STUDY: US GUIDED BIOPSY LYMPH NODE SUPERFICIAL; 06/05/2024 1:53 pm INDICATION: Signs/Symptoms:left neck enlarged lymph node seen on PET. COMPARISON: PET-CT dated 03/27/2024 ACCESSION NUMBER(S): [id number] ORDERING CLINICIAN: MARY SCHNEIDER TECHNIQUE: INTERVENTIONALIST(S): MD [...] intravenous fentanyl 50mcg and versed 0.5mg from 0452-9938. The physician was assisted by an independent [...] no immediate complications. Specimen(s) sent to pathology. MMODAL Gaby Perez MD - 06/05/2024 Interpreted By: Gaby Perez and Guirguis James STUDY: US GUIDED BIOPSY LYMPH NODE SUPERFICIAL; 06/05/2024 1:53 pm INDICATION: Signs/Symptoms:left neck enlarged lymph node seen on PET. COMPARISON: PET-CT dated 03/27/2024 ACCESSION NUMBER(S): [id number] ORDERING CLINICIAN: MARY SCHNEIDER TECHNIQUE: INTERVENTIONALIST(S): MD [...] intravenous fentanyl 50mcg and versed 0.5mg from 0498-3851. The physician was assisted by an independent [...] findings as stated. Performed and dictated at [facility]. MACRO: None. Signed by: Gaby Perez 06/05/2024 9:02 PM Dictation workstation: [id number] [facility] Work Phone: Radiology Study observation (narrative) [facility] Work Phone: US guidance for percutaneous biopsy of Lymph nodeOrdered By: Gaby Perez on 06-05-2024 [facility] Work Phone: NM TRANSFER OF OUTSIDE FILMS on 05-15-2024 NM TRANSFER OF OUTSIDE FILMS Outside images for comparison or treatment purposes, not interpreted by Radiologists. Normal [facility] Study Interpretation of outs romina studyon 05-15-2024 Outside images for comparison or treatment purposes, not interpreted by Radiologists. IMAGING Blood type and Indirect anti body screen panel (Bld)on 05-11-2024 ABO group Nom (Bld) A [facility] Blood group antibody screen Ql Negative [facility] D Ag Ql (Bld) Positive [facility] ABO group Nom (Bld) A Normal [facility] Comment on above: Order Comment: Patie nt admitted for surgery associated with significant blood loss OR per blood bank request. Performed By: #### 3 4532-2 #### TING Knox ([id number]) [facility]) [address] [place] [address] Blood group antibody screen Ql Negative [facility] Comment on above: Order Comment: Patie nt admitted for surgery associated with significant blood loss OR per blood bank request. Performed By: #### 3 4532-2 #### TING Knox ([id number]) [facility]) [address] [place] [address] D Ag Ql (Bld) Positive [facility] Comment on above: Order Comment: Patie nt admitted for surgery associated with significant blood loss OR per blood bank request. Performed By: #### 3 4532-2 #### TING Knox ([id number]) [facility]) [address] [place] [address] Glucose Test strip manual (B ld) [Mass/Vol]on 05-11-2024 Glucose [Mass/Vol] 128 mg/dL High 74 - 99 mg/dL [facility] Interpretation and review of laboratory results Abnormal [facility] Glucose [Mass/Vol] 128 mg/dL High 74-99 [facility] Comment on above: Performed By: #### 2 341-6 #### TING Knox ([id number]) [facility] ([facility]) [address] [place], [place] [id number] Glucose [Mass/Vol] 120 mg/dL High 74 - 99 mg/dL [facility] Comment on above: RN NOTIFIED Interpretation and review of laboratory results Abnormal [facility] Glucose [Mass/Vol] 120 mg/dL High 74-99 [facility] Comment on above: Result Comment: RN N OTIFIED Performed By: #### 2 341-6 #### TING Knox ([id number]) [facility] ([facility]) [address] [place], [place] [id number] Surgical pathology studyon 1 07-12-2023 Surgical pathology study Pathology report.total SEE COMMENT Surgical Pathology Case: [id number] Authorizing Provider: Mary Schneider MD Collected: 05/11/2024 0802 Ordering Location: [facility] Received: 05/11/2024 08 [facility] [place] Pathologist: Asuncion Quintanilla MD PhD Intraop: [...] submitted in toto in one cassette. [facility] AP INTRAOPERATIVE CONSULTATION SEE COMMENT A. Received Date [...] Intraoperative Consult Pathologist(s): Carmel Patel MD business travel consultant: Dr. Alessandro Arzate. LAB AP ASR DISCLAIMER One or more of the reagents used to perform assays on this specimen MAY have contained components considered to be analyte specific reagents (ASR's). ASR's have not been cleared or approved by the U.S. Food and Drug Administration. These assays were developed and their performance characteristics determined by the Department of Pathology at [facility]. The FDA does not require [...] and negative controls which stained appropriately. 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 Office Visiton 04-25-2024 Follow-up visit [id number] Yar[address]za [address] P 1940 M Date Provider Department Center 04/25/2024 STACEY ERNANDEZ GILA [place] [facility] Family History Problem Relation Age of Onset Coronary artery disease Mother Kidney disease Mother Heart failure Mother Family Status - Relation Status Age at Mother Level of Service:66894 NM OFFICE/OUTPATIENT NEW MODERATE MDM 45 MINUTES Normal [facility] Ambulatory Visit Summaryon 1 06-18-2023 Ambulatory Visit Summary Ambulatory Visit Summary JEREMIE BENNETT :1940 Visit Date:04/17/2024 Ambulatory Visit Instructions Your Diagnosis Type 2 diabetes mellitus with hypercholesterolemia BMI 30.0-30.9,adult Exogenous obesity Former smoker Chronic GERD Coronary artery disease involving [place] coronary artery of [place] heart without angina pectoris Hypercholesterolemia Primary hypertension [...] Tab) fluticasone nasal (fluticasone Nasal 0.05 mg/inh [place]) furosemide (furosemide 20 mg Tab) irbesartan (irbesartan [...] Appointments Wednesday 2:30 PM EDT With: Where: [address] [address]- Wednesday 3:30 PM EDT With: Hermes CASON, Demetrius Rosa Where: [address] [address]- Medications What How Much When Instructions Unchanged [...] fluticasone nasal (fluticasone Nasal 0.05 mg/ inh [place]) See instructions USE 1 SPRAY IN BOTH [...] day Unchanged Misc Prescription ([facility] [place]) See instructions one touch ultra [...] currently receivin (more content not included)... Normal [facility] CBC w/ Auto Diffon 4 Basophils/100 WBC (Bld) 0.8 % Normal 0.0-2.0 [facility] Comment on above: Performed By: #### 2 656194 #### [facility] [address] [place] [address] Basophils/Leukocytes Auto (Bld) [Pure # fraction] 0.1 E9/L Normal 0.0-0.2 [facility] Comment on above: Performed By: #### 2 001200 #### [facility] [address] [place] [address] Eosinophils (Bld) [#/Vol] 0.4 E9/L Normal 0.0-0.5 [facility] Comment on above: Performed By: #### 2 231835 #### [facility] [address] [place] [address] Eosinophils/100 WBC (Bld) 4.6 % Normal 0.0-8.0 [facility] Comment on above: Performed By: #### 2 989202 #### [facility] [address] [place] [address] Erythrocyte distribution width (RBC) [Ratio] 14.0 % Normal 10.9-14.2 [facility] Comment on above: Performed By: #### 2 546643 #### [facility] [address] [place] [address] Hematocrit (Bld) [Volume fraction] 43.7 % Normal 37.7-49.0 [facility] Comment on above: Performed By: #### 2 554347 #### [facility] [address] [place] [address] Hemoglobin (Bld) [Mass/Vol] 14.5 g/dL Normal 13.5-17.5 [facility] Comment on above: Performed By: #### 2 722340 #### [facility] [address] [place] [address] Lymphocytes (Bld) [#/Vol] 2.0 E9/L Normal 1.0-4.0 [facility] Comment on above: Performed By: #### 2 396047 #### [facility] [address] [place] [address] Lymphocytes/100 WBC (Bld) 22.4 % Normal 14.0-50.0 [facility] Comment on above: Performed By: #### 2 036609 #### [facility] [address] [place] [address] MCH (RBC) [Entitic mass] 31.2 pg Normal 27.0-34.0 [facility] Comment on above: Performed By: #### 2 655250 #### [facility] [address] [place] [address] MCHC (RBC) [Mass/Vol] 33.2 g/dL Normal 31.4-36.0 [facility] Comment on above: Performed By: #### 2 414896 #### [facility] [address] [place] [address] MCV (RBC) [Entitic vol] 94.2 fL Normal 80.0-100.0 [facility] Comment on above: Performed By: #### 2 888798 #### [facility] [address] [place] [address] Monocytes (Bld) [#/Vol] 0.7 E9/L Normal 0.2-1.0 [facility] Comment on above: Performed By: #### 2 517071 #### [facility] [address] [place] [address] Neutrophils (Bld) [#/Vol] 5.7 E9/L Normal 2.0-7.5 [facility] Comment on above: Performed By: #### 2 318762 #### [facility] [address] [place] [address] Neutrophils/100 WBC (Bld) 64.7 % Normal 36.0-75.0 [facility] Comment on above: Performed By: #### 2 440379 #### [facility] [address] [place] [address] Platelet mean volume (Bld) [Entitic vol] 9.2 fL Normal 6.4-10.8 [facility] Comment on above: Performed By: #### 2 512313 #### [facility] [address] [place] [address] Platelets (Bld) [#/Vol] 243.0 E9/L Normal 150.0-500. 0 [facility] Comment on above: Performed By: #### 2 713801 #### [facility] [address] [place] [address] RBC (Bld) [#/Vol] 4.6 E12/L Normal 4.3-5.9 [facility] Comment on above: Performed By: #### 2 543888 #### [facility] [address] [place] [address] WBC corrected for nucl RBC Auto (Bld) [#/Vol] 8.9 E9/L Normal 4.0-11.0 [facility] Comment on above: Performed By: #### 2 198492 #### [facility] [address] [place] [address] CHEMISTRYOrdered By: SYSTEM SYSTEM on 04-17-2024 Albumin [...] (Bld) [Mass fraction] 6.5 % High <=5.9% [facility] ChemAutoSS CMPon 04-17-2024 Albumin [Mass/Vol] 4.3 g/dL Normal 3.3-5.0 [facility] Comment on above: Performed By: #### 2 502219 #### [facility] [address] [place] [address] Albumin/Globulin (S) [Mass conc ratio] 1.7 Normal 1.1-2.2 [facility] Comment on above: Performed By: #### 2 309514 #### [facility] [address] [place] [address] ALP [Catalytic activity/Vol] 82 Int._Unit/L Normal 21-98 [facility] Comment on above: Performed By: #### 2 870780 #### [facility] [address] [place] [address] ALT No additional P-5'-P [Catalytic activity/Vol] 17 Int._Unit/L Normal 6-46 [facility] Comment on above: Performed By: #### 2 145496 #### [facility] [address] [place] [address] Anion gap [Moles/Vol] 10 mmol/L Normal 6-16 [facility] Comment on above: Performed By: #### 2 145317 #### [facility] [address] [place] [address] AST [Catalytic activity/Vol] 18 Int._Unit/L Normal 5-43 [facility] Comment on above: Performed By: #### 2 201229 #### [facility] [address] [place] [address] Bilirubin [Mass/Vol] 0.6 mg/dL Normal 0.0-1.1 [facility] Comment on above: Performed By: #### 2 147988 #### [facility] [address] [place] [address] Calcium [Mass/Vol] 9.7 mg/dL Normal 8.9-11.1 [facility] Comment on above: Performed By: #### 2 072535 #### [facility] [address] [place] [address] Chloride [Moles/Vol] 108 mmol/L Normal 101-111 [facility] Comment on above: Performed By: #### 2 322638 #### [facility] [address] [place] [address] CO2 [Moles/Vol] 27 mmol/L Normal 21-31 [facility] Comment on above: Performed By: #### 2 381266 #### [facility] [address] [place] [address] Creatinine [Mass/Vol] 1.0 mg/dL Normal 0.5-1.3 [facility] Comment on above: Performed By: #### 2 285732 #### [facility] [address] [place] [address] Globulin (S) [Mass/Vol] 2.5 g/dL Normal 1.4-4.0 [facility] Comment on above: Performed By: #### 2 278256 #### [facility] [address] [place] [address] Glucose [Mass/Vol] 145 mg/dL Normal 55-199 [facility] Comment on above: Performed By: #### 2 250466 #### [facility] [address] [place] [address] Potassium [Moles/Vol] 4.2 mmol/L Normal 3.5-5.3 [facility] Comment on above: Performed By: #### 2 053432 #### [facility] [address] [place] [address] Protein [Mass/Vol] 6.8 g/dL Normal 6.0-7.8 [facility] Comment on above: Performed By: #### 2 988400 #### [facility] [address] [place] [address] Sodium [Moles/Vol] 141 mmol/L Normal 135-145 [facility] Comment on above: Performed By: #### 2 734278 #### [facility] [address] [place] [address] Urea nitrogen [Mass/Vol] 22 mg/dL High 5-21 [facility] Comment on above: Performed By: #### 2 810978 #### [facility] [address] [place] [address] Urea nitrogen/Creatinine [Mass ratio] 22 No Units High 10-20 [facility] Comment on above: Performed By: #### 2 306296 #### [facility] [address] [place] [address] Family Medicine Office/Clini c Noteon 04-17-2024 Family [...] a referral to Dr. Marlene Schneider in [place] for further evaluation. The patient has a [...] or previously received 4274F Lab Specimen Collect 67962 Microalbumin Level Urine Most recent diastolic blood [...] or previously received 4274F Lab Specimen Collect 48517 Microalbumin Level Urine Most recent diastolic blood [...] or previously received 4274F Lab Specimen Collect 55392 Microalbumin Level Urine Most recent diastolic blood pressure <80 mm Hg 3078F Patient screen for fall risk: no falls in last year or 1 fall with no injury in last year 1101F Systolic BP <130 mm Hg (Most Recent) 3074F 4. Former smoker (Z87.891: Personal history of nicotine dependence) Please continue not to smoke. Ordered: influe (more content not included)... Normal [facility] Comment on above: Result Comment: Elec tronically [...] Normal 4.0 - 11.0 E9/L Remisol Heme [id number] 04-17-2024 HbA1c (Bld) [Mass fraction] 6.5 % High <=5.9 [facility] Comment on above: Performed By: #### 7 [id number] #### [facility] [address] [place] [address] U Microalbon 04-17-2024 Albumin DL <= 20 mg/L (U) [Mass/Vol] 0.7 mg/dL Normal 0.0-1.9 [facility] Comment on above: Performed By: #### 1 1436448 #### [facility] [address] [place] [address] eGFRon 04-17-2024 eGFR 74 mL/min/1.73 m2 Normal >=59 [facility] Comment on above: Performed By: #### 1 2900000 #### [facility] [address] [place] [address] Basic metabolic 2000 panelon 04-11-2024 Anion gap [Moles/Vol] 15 mmol/L Normal 10-20 [facility] Comment on above: Performed By: #### 2 4321-2 #### TING Knox (55953) [facility] ([facility]) [address] [place] [address] Calcium [Mass/Vol] 9.9 mg/dL Normal 8.6-10.6 [facility] Comment on above: Performed By: #### 2 4321-2 #### TING Knox (84880) [facility] ([facility]) [address] [place] [address] Chloride [Moles/Vol] 107 mmol/L Normal 98-107 [facility] Comment on above: Performed By: #### 2 4321-2 #### TING Knox (60094) [facility] ([facility]) [address] [place] [address] CO2 [Moles/Vol] 25 mmol/L Normal 21-32 [facility] Comment on above: Performed By: #### 2 4321-2 #### TING Knox (52373) [facility] ([facility]) [address] [place] [address] Creatinine [Mass/Vol] 0.96 mg/dL Normal 0.50-1.30 [facility] Comment on above: Performed By: #### 2 4321-2 #### TING Knox (38591) [facility] ([facility]) [address] [place] [address] Glomerular filtration rate/1.73 sq M.predicted 78 mL/min/1.73m*2 Normal >60 [facility] Comment on above: Result Comment: Calc ulations of estimated GFR are performed using the 2020 CKD-EPI Study Refit equation without the race variable for the IDMS-Traceable creatinine methods. https://jasn.asnjournals.org/content/early//ASN.41851 89116 Performed By: #### 2 4321-2 #### TING EARLYER L (67836) [facility] ([facility]) [address] [place] [address] Glucose [Mass/Vol] 109 mg/dL High 74-99 [facility] Comment on above: Performed By: #### 2 4321-2 #### TING VIEIRA L (32112) [facility] ([facility]) [address] [place] [address] Potassium [Moles/Vol] 4.5 mmol/L Normal 3.5-5.3 [facility] Comment on above: Performed By: #### 2 4321-2 #### TING PARKSTZER L (68296) [facility] ([facility]) [address] [place] [address] Sodium [Moles/Vol] 142 mmol/L Normal 136-145 [facility] Comment on above: Performed By: #### 2 4321-2 #### TING VICENTEMOTZER L (52443) [facility] ([facility]) [address] [place] [address] Urea nitrogen [Mass/Vol] 18 mg/dL Normal 6-23 [facility] Comment on above: Performed By: #### 2 4321-2 #### TING VICENTEMOTZER L (90031) [facility] ([facility]) [address] [place] [address] CBC panel Auto (Bld)on 04-11 Erythrocyte distribution width (RBC) [Ratio] 13.3 % Normal 11.5-14.5 [facility] Comment on above: Performed By: #### 5 8410-2 #### TING Knox (26156) [facility] ([facility]) [address] [place] [address] Hematocrit (Bld) [Volume fraction] 45.5 % Normal 41.0-52.0 [facility] Comment on above: Performed By: #### 5 8410-2 #### TING Knox (39313) [facility] ([facility]) [address] [place] [address] Hemoglobin (Bld) [Mass/Vol] 14.5 g/dL Normal 13.5-17.5 [facility] Comment on above: Performed By: #### 5 8410-2 #### TING Knox (35000) [facility] ([facility]) [address] [place] [address] MCH (RBC) [Entitic mass] 30.1 pg Normal 26.0-34.0 [facility] Comment on above: Performed By: #### 5 8410-2 #### TING Knox (47740) [facility] ([facility]) [address] [place] [address] MCHC (RBC) [Mass/Vol] 31.9 g/dL Low 32.0-36.0 [facility] Comment on above: Performed By: #### 5 8410-2 #### TING Knox (00822) [facility] ([facility]) [address] [place] [address] MCV (RBC) [Entitic vol] 94 fL Normal 80-100 [facility] Comment on above: Performed By: #### 5 8410-2 #### TING Knox (57134) [facility] ([facility]) [address] [place] [address] Nucleated RBC/100 WBC (Bld) [Ratio] 0.0 /100 WBCs Normal 0.0-0.0 [facility] Comment on above: Performed By: #### 5 8410-2 #### TING VIEIRA L (20606) [facility] ([facility]) [address] [place] [address] Platelets (Bld) [#/Vol] 254 x10*3/uL Normal 150-450 [facility] Comment on above: Performed By: #### 5 8410-2 #### TING VICENTEMOTZER L (17097) [facility] ([facility]) [address] [place] [address] RBC (Bld) [#/Vol] 4.82 x10*6/uL Normal 4.50-5.90 [facility] Comment on above: Performed By: #### 5 8410-2 #### TING VIEIRA L (51018) [facility] ([facility]) [address] [place] [address] WBC (Bld) [#/Vol] 8.5 x10*3/uL Normal 4.4-11.3 [facility] Comment on above: Performed By: #### 5 8410-2 #### TING VIEIRA L (64903) [facility] [facility]) [address] [place] [address] Surgical pathology studyon 1 06-07-2023 Surgical pathology study Pathology report.total SEE COMMENT Surgical Pathology Case: [id number] Authorizing Provider: Mary Schneider MD Collected: 04/07/2024 1137 Ordering Location: [facility] Received: 04/07/2024 1145 Pathologist: Alessandro Arzate DDS [...] is negative for heart fungal organisms. business travel consultant: Dr. Jose Leary. Laboratory comment By [...] is submitted in toto in one cassette. [facility] GLUCOSE, BLOOD (POC)on 03-27 Glucose [Mass/Vol] 113 mg/dL Abnormal 74 - 99 mg/dL [facility] Comment on above: Location:[facility], [address] [place] [address] , [place], [place], [facility] The Accu-Chek Inform II glucose meter has [...] Interpretation and review of laboratory results Abnormal [facility] NM PET/CT SKULL-THIGH INITon 03-27-2024 NM [...] * Uptake Time: 61 minutes * Radiopharmaceutical: Q28-Pilegscuhyqfihoevy (FDG) COMPARISON: No previous FDG PET/CT available [...] of you (more content not included)... Normal [facility] Ambulatory Visit Summaryon 05-23-2023 Ambulatory Visit Summary Ambulatory Visit Summary [...] Tab) fluticasone nasal (fluticasone Nasal 0.05 mg/inh [place]) furosemide (furosemide 20 mg Tab) irbesartan (irbesartan [...] EST With: Hermes CASON, Demetrius Rosa Where: [address] [address]- Wednesday 2:30 PM EDT With: Where: [address] [address]- Medications What How Much When [...] fluticasone nasal (fluticasone Nasal 0.05 mg/ inh [place]) See instructions USE 1 SPRAY IN BOTH [...] (Misc Medication (more content not included)... Normal [facility] Gastroenterology Office/Clin ic Noteon 03-23-2024 Gastroenterology Office/Clinic [...] sidebranch IPMN- 04/[address] Aguilar @ [facility] Repeat MRCP 02/2024 2. 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 Normal [facility] Comment on above: Result Comment: Elec tronically Signed By: Beatriz CASON, Inez Funes\.br\Date and Time Signed: 03/23/24 14:49 EST Obdulio 02-29-2024 L Specimen: [id number] Received: 02/29/24 Status: LISA Kirby Num: [id number] Spec Type: Surgical Subm Dr: LUC HAM [...] Account Attending Physician Jeremie Bennett 83/M LABELL [id number] LUC HAM MD SPEC NUM: [id number] RECD: 02/29/24 STATUS: LISA KIRBY NUM: [id number] DONTRELL: 02/29/24- SUBM DR: LUC HAM MD ENTERED: 02/29/24 [facility] DR: Nicolette,Lab SPEC TYPE: Surgical DEPT: MANNY MONTEZ ENTERED BY: [id number] RECV BY: [id number] ORDERED: S 100, Mucicarmine, HE/6, Gross/Micro L4/2, CK5 6, CK20, CK 7, NAPSIN A, CINtec p16, TTF1, NKX3.1, MOC31, GATA3, p40, DIFF QWIK ORDERED: S 100, Mucicarmine, HE/6, Gross/Micro L4/2, CK5 6, CK20, CK 7, NAPSIN A, CINtec p16, TTF1, USS/4, NKX3.1, MOC31, GATA3, p40, DIFF QWIK Supplemental Report Addendum 1 Entered: 03/04/24 Supplemental for findings of flow cytometry analysis (Part B) from [facility] -The flow cytometry test is canceled, due to insufficient cellularity / insufficient lymphocytes Addendum Signed (signature on file) Chin-Anup Sanchez MD 03/04/24 1035 Pathological Diagnosis A, right cervical lymph node, core biopsy: -Positive for metastatic carcinoma, 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 Note: Specimen: [id number] Received: 02/29/24 Status: LISA Kirby Num: [id number] Spec Type: Surgical Subm Dr: LUC HAM MD Tissues: A Lymph Node - Biopsy (Needle or Incisional) (RT CERVICAL LYMPH NODE) B Lymph Node - Biopsy (Needle or Incisional) (RT CERVICAL LYMPH NODE-SALIN) Procedures: S 100, Mucicarmine, HE/6, Gross/Micro L4/2, CK5 6, CK20, CK 7, NAPSIN A, CINtec p16, TTF1, NKX3.1, MOC31, GATA3, p40, DIFF QWIK Patient: Jeremie Bennett [id number] (Continued) Specimen: [id number] Received: 02/29/24 (Continued) Pathological Diagnosis (Continued) Signed (signature on file) Tae Sanchez MD 03/04/24 1033 Specimen: [id number] Received: 02/29/24 Status: LISA Kirby Num: [id number] Spec Type: Surgical Subm Dr: LUC HAM MD Tissues: A Lymph Node - Biopsy (Needle or Incisional) (RT CERVICAL LYMPH NODE) B Lymph Node - Biopsy (Needle or Incisional) (RT CERVICAL LYMPH NODE-SALIN) Procedures: S 100, Mucicarmine, HE/6, Gross/Micro L4/2, CK5 6, CK20, CK 7, NAPSIN A, CINtec p16, TTF1, NKX3.1, MOC31, GATA3, p40, DIFF QWIK Patient: Jeremie Bennett [id number] (Continued) Specimen: [id number] Received: 02/29/24-8574 (Continued) Pathological Diagnosis (Continued) -The tumor cells [...] c (more content not included)... Normal [facility] CT SOFT TISSUE NECK W [...] Comment: CT S/ T Neck W at [facility]. Please call patient to schedule. Itz 02-02-2024 PRICE Telephone ([facility]) ----- JEREMIE BENNETT ([id number]) 1940 M Date Time Provider Department 02/02/24 VAISHALI PRINGLE [facility] During your visit today, we recorded the [...] and it was completed in 12/2023 at [facility]. Our office will request results for Dr. Pringle's review. Follow up will be determined upon Dr. Pringle's review of results. Carlitos Beckman 02/04/2024 9:19 AM Signed Surveillance imaging completed at OSH for IPMN surveillance. Carlitos Beckman 02/07/2024 9:31 AM Signed IPMN surveillance. Review OSH images and advise please [facility] MRI Cholanglogram Pancreatography 11/09/2023 Allergies As of Date: 02/02/2024 Noted Allergy Reaction ADHESIVE TAPE-SILICONES 01/19/2019 2 - Rash NIACIN 01/19/2019 9 - Itching 16 - Unknown Date Reviewed: 04/01/2023 Reviewed by: Debby Holland MA - Fully Assessed Reason for Visit: MRI Appointment [0639] Acute Care Certified Nursing Assistant - Other [3602] Primary Visit Diagnosis:IPMN (intraductal papillary mucinous neoplasm) [D49.0] Order(s):CONSULT FOR RAD 2ND READ [[id number]] Order #: [id number]: 1 Prescriptions as of 02/18/2024 - iv [...] fluticasone (FLONASE) 50 mcg/actuation nasal spray 1 [place]. - omeprazole (PRILOSEC) 40 mg capsule Take [...] Encounter Status:Closed by CARLITOS BECKMAN on 02/18/24 [facility] Ambulatory Visit Summaryon 0 02-01-2024 Ambulatory Visit [...] Tab) fluticasone nasal (fluticasone Nasal 0.05 mg/inh [place]) furosemide (furosemide 20 mg Tab) irbesartan (irbesartan [...] EST With: Beatriz CASON, Inez Funes Where: [facility] [address] [place] [address] Ave [address] [place] [address]- Wednesday 10:00 AM EST With: Hermes CASON, Demetrius Rosa Where: [address] [id number]- Wednesday 2:30 PM EDT With: Where: [address] [address]- Medications What How Much When Why Instructions [...] fluticasone nasal (fluticasone Nasal 0.05 mg/ inh [place]) See instructions USE 1 SPRAY IN BOTH [...] See instructions (more content not included)... Normal [facility] Family Medicine Office/Clini c Noteon 02-01-2024 Family Medicine Office/Clinic Note Family Medicine Office/Clinic Note HPI Staff Jeremie is an 83 year old male presenting for 3 week follow up cervical lymphadenopathy GOLD US and clindamycin Had US done and referred to Dr aHm, has appt with him this afternoon Completed [...] BID, # 20 cap(s), Refills(s) 0, Pharmacy: [facility] #[id number], 160, cm, 01/10/24 9:43:00 EDT, Height/Length Dosing, 77.8, kg, 01/10/24 9:43:00 EDT, Weight Dosing Follow-up No qualifying data available Problem List/Past Medical History Ongoing BMI 29.0-29.9,adult Cervical lymphadenopathy Cervical spondylosis Chronic GERD Coronary artery disease involving cocopah coronary artery of cocopah heart without angina pectoris Diabetic autonomic neuropathy [...] PRN, 1 refills fluticasone Nasal 0.05 mg/inh [place], See Instructions furosemide 20 mg Tab, 20 [...] change: No. Household alcohol concerns: No., [facility] (more content not included)... Normal [facility] Comment on above: Result Comment: Elec tronically Signed By: Hermes CASON, Demetrius Rosa\.br\Date and Time Signed: 02/01/24 09:16 EDT [...] mg Tab) fluticasone nasal (Flonase 0.05 mg/inh [place]) furosemide (furosemide 20 mg Tab) irbesartan (irbesartan [...] AM EDT With: Demetrius Cooper MD Where: [address] [address]- 2023 2:45 PM EST With: Beatriz CASON, Inez Funes Where: [facility] [address] [place], [place] [address]e [address] [place] [address]- Wednesday 10:00 AM EST With: Demetrius Cooper MD Where: [address] [address]- Wednesday 2:30 PM EDT With: Where: [address] [address]- Medications What How Much When Why Instructions [...] Unchanged fluticasone nasal (Flonase 0.05 mg/ inh [place]) 1 Sprays Nasal Inhalation 2 times a [...] day Unchanged Misc Prescription ([facility]) See instructions one touch ultra test strips test sugars once a day Unchanged Misc Prescription ([facility] Prescription) See instructions one touch ultra [...] zonisamide (z (more content not included)... Normal [facility] Family Medicine Office/Clini c Noteon 01-10-2024 Family [...] BID, # 20 cap(s), Refills(s) 0, Pharmacy: [facility] #[id number], 160, cm, 01/10/24 9:43:00 EDT, Height/Length Dosing, 77.8, kg, 01/10/24 9:43:00 EDT, Weight Dosing Follow-up No qualifying data available Problem List/Past Medical History Ongoing BMI 29.0-29.9,adult Cervical lymphadenopathy Cervical spondylosis Chronic GERD Coronary artery disease involving cocopah coronary artery of [place] heart without angina pectoris Diabetic autonomic neuropathy [...] q4hr, PRN, 1 refills Flonase 0.05 mg/inh [place], 1 spray(s), Nasal, BID furosemide 20 mg Tab, 20 mg= 1 tab(s), Oral, Daily irbesartan 300 mg Tab, 300 mg= 1 tab(s), Oral, Daily isosorbide mononitrate, 30 mg, Oral, qAM latanoprost Opth 0.005% Janee loperamide 2 mg (more content not included)... Normal [facility] Comment on above: Result Comment: Elec tronically Signed By: Hermes CASON, Demetrius Branham.marco a\Date and Time Signed: 01/10/24 10:38 EDT Itz 04-05-2023 CNPN Telephone ([id number]) ----- JEREMIE BENNETT ([id number]) 1940 M Date Time Provider Department 04/05/23 VAISHALI PRINGLE [id number] During your visit today, we recorded the following information about you: Lolly Dumont 04/05/2023 9:55 AM Signed Received records from [facility]. Reports for imaging listed below scanned. Images pushed through 09/27/2019 US Right Upper Quad 03/31/2020 CT ABD/PEL [id number] US Right Upper Quad [facility] MRI Abdomen 02/22/2023 US [...] papillary mucinous neoplasm) [D49.0] Order(s):GI TUMOR BOARD [facility] [APPT42] Order #: [id number]: 1 FUTURE Prescriptions as of 04/06/2023 - isosorbide mononitrate ER (IMDUR) 30 mg 24 hr tablet Take 30 mg by mouth. - clopidogrel (PLAVIX) 75 mg tablet - furosemide (LASIX) 20 mg tablet Take 20 mg by mouth. - fluticasone (FLONASE) 50 mcg/actuation nasal spray 1 [place]. - omeprazole (PRILOSEC) 40 mg capsule Take [...] Encounter Status:Closed by LAMONTE COUCH on 04/06/23 [facility] CNOVon 04-01-2023 CNOV Office Visit ([id number] ) ----- JEREMIE BENNETT ([id number]) 1940 M Date Time Provider Department 04/01/23 1:00 PM VAISHALI PRINGLE [id number] During your visit today, we recorded the [...] GI re (more content not included)... Normal [facility] CHEMISTRYOrdered By: SYSTEM SYSTEM on 03-10-2023 [...] 67 mL/min/1.73 m2 Normal >=59mL/min /1.73 m2 [facility] Chem S Comment on above: Interpretive Data: [...] 13.9 % Normal 10.9 - 14.2 % FT HemeAutoSS Hematocrit (Bld) [Volume fraction] 43.6 % [...] (U) [Mass fraction] mg/dL Invalid Interpretation Code [facility] Remisol Creatinine (U) [Mass/Vol] 15.9 mg/dL Invalid Interpretation Code [facility] Chem S U Prot/Creat Ratio [facility] Invalid Interpretation Code 0.00 - 200.00 [facility] Chem S Comment on above: Result Comment: Unab le to calculate due to Protein being less than analyzer reportable range. CBC AUTO DIFFon 09-29-2022 BASO # 0.1 103/ul Normal 0.0-0.1 [facility] Comment on above: Performed By: #### C BC #### [facility] [address] [address] [address] Ramsey Sanchez Basophils/100 WBC (Bld) 0.7 % Normal 0.2-2.0 [facility] Comment on above: Performed By: #### C BC #### [facility] [address] [address] [address] Ramsey Sanchez EO # 0.2 103/ul Normal 0.0-0.7 [facility] Comment on above: Performed By: #### C BC #### [facility] [address] [address] [address] Ramsey Sanchez Eosinophils/100 WBC (Bld) 1.5 % Normal 0.9-7.0 [facility] Comment on above: Performed By: #### C BC #### [facility] [address] [address] [address] Ramsey Sanchez Erythrocyte distribution width (RBC) [Ratio] 13.6 % Normal 11.0-15.0 [facility] Comment on above: Performed By: #### C BC #### [facility] [address] [address] [address] Ramsey Sanchez Hematocrit (Bld) [Volume fraction] 43.5 % Normal 42.0-54.0 [facility] Comment on above: Performed By: #### C BC #### [facility] [address] [address] [address] Ramsey Sanchez Hemoglobin (Bld) [Mass/Vol] 13.9 g/dL Critically low 14.0-18.0 [facility] Comment on above: Performed By: #### C BC #### [facility] [address] [address] [address] Ramsey Sanchez IG # 0.29 10e3/ul Critically high 0.00-0.03 [facility] Comment on above: Performed By: #### C BC #### [facility] [address] [address] [address] Ramsey Sanchez IG % 2.9 % Critically high 0.0-0.5 [facility] Comment on above: Performed By: #### C BC #### [facility] [address] [place] [address] Dr. Ramsey Sanchez LYMPH # 2.1 103/ul Normal 1.2-3.8 [facility] Comment on above: Performed By: #### C BC #### [facility] [address] [place] [address] Dr. Ramsey Sanchez Lymphocytes/100 WBC (Bld) 20.8 % Normal 20.5-60.0 [facility] Comment on above: Performed By: #### C BC #### [facility] [address] [place] [address] Dr. Ramsey Sanchez MANUAL DIFF REQ NO Normal [facility] Comment on above: Performed By: #### C BC #### [facility] [address] [place] [address] Dr. Ramsey Sanchez MCH (RBC) [Entitic mass] 29.6 pg Normal 25.9-34.0 [facility] Comment on above: Performed By: #### C BC #### [facility] [address] [place] [address] Dr. Ramsey Sanchez MCHC (RBC) [Mass/Vol] 32.0 g/dL Normal 29.9-35.2 [facility] Comment on above: Performed By: #### C BC #### [facility] [address] [place] [address] Dr. Ramsey Sanchez MCV (RBC) [Entitic vol] 92.6 fL Normal 80.0-94.0 [facility] Comment on above: Performed By: #### C BC #### [facility] [address] [place] [address] Dr. Ramsey Sanchez MONO # 0.8 103/ul Normal 0.3-0.8 [facility] Comment on above: Performed By: #### C BC #### [facility] [address] [place] [address] Dr. Ramsey Sanchez Monocytes/100 WBC (Bld) 8.3 % Normal 1.7-12.0 [facility] Comment on above: Performed By: #### C BC #### [facility] [address] [place] [address] Dr. Ramsey Sanchez NEUT # 6.5 103/ul Normal 1.4-6.5 [facility] Comment on above: Performed By: #### C BC #### [facility] [address] [place] [address] Dr. Ramsey Sanchez Neutrophils/100 WBC (Bld) 65.8 % Normal 43.0-75.0 [facility] Comment on above: Performed By: #### C BC #### [facility] [address] [place] [address] Dr. Ramsey Sanchez Platelet mean volume (Bld) [Entitic vol] 11.1 fL Normal 9.5-13.5 [facility] Comment on above: Performed By: #### C BC #### [facility] [address] [place] [address] Dr. Ramsey Sanchez PLT 198 103/ul Normal 150-450 [facility] Comment on above: Performed By: #### C BC #### [facility] [address] [place] [address] Dr. Ramsey Sanchez RBC 4.70 106/ul Normal 4.70-6.10 [facility] Comment on above: Performed By: #### C BC #### [facility] [address] [place] [address] Dr. Ramsey Sanchez WBC 9.9 103/ul Normal 4.0-11.0 [facility] Comment on above: Performed By: #### C BC #### [facility] [address] [place], [place] [id number] Dr. Ramsey Sanchez ER URINE PROFILEon 3 Bilirubin Ql (U) Negative Normal NEGATIVE [facility] Comment on above: Performed By: #### E RUR #### [facility] [address] [place] [address] Dr. Ramsey Sanchez Clarity (U) CLEAR Normal CLEAR [facility] Comment on above: Performed By: #### E RUR #### [facility] [address] [place] [address] Dr. Ramsey Sanchez Color (U) YELLOW Normal YELLOW [facility] Comment on above: Performed By: #### E RUR #### [facility] [address] [place] [address] Dr. Ramsey IVORY A micrscopic examina tion will be performed if indicated. Normal [facility] Comment on above: Performed By: #### E RUR #### [facility] [address] [place] [address] Dr. Ramsey Sanchez Glucose Ql (U) Negative Normal NEGATIVE [facility] Comment on above: Performed By: #### E RUR #### [facility] [address] [place] [address] Dr. Ramsey Sanchez Hemoglobin Ql (U) Negative Normal NEGATIVE [facility] Comment on above: Performed By: #### E RUR #### [facility] [address] [place] [address] Dr. Ramsey Sanchez Ketones Ql (U) Negative Normal NEGATIVE [facility] Comment on above: Performed By: #### E RUR #### [facility] [address] [place] [address] Dr. Ramsey Sanchez LEUKOCYTES Negative Normal NEGATIVE [facility] Comment on above: Performed By: #### E RUR #### [facility] [address] [place] [address] Dr. Ramsey Sanchez Nitrite Ql (U) Negative Normal NEGATIVE [facility] Comment on above: Performed By: #### E RUR #### [facility] [address] [place] [address] Dr. Ramsey Sanchez pH (U) 5.5 [pH] Normal 5-9 [facility] Comment on above: Performed By: #### E RUR #### [facility] [address] [place] [address] Dr. Ramsey Sanchez SPEC GRAVITY 1.020 Normal 1.005-<=1. 025 [facility] Comment on above: Performed By: #### E RUR #### [facility] [address] [place] [address] Dr. Ramsey Sanchez UA PROTEIN Negative Normal NEGATIVE/ TRACE [facility] Comment on above: Performed By: #### E RUR #### [facility] [address] [place] [address] Dr. Ramsey Sanchez UR MICRO IND NOT INDICATED Normal [facility] Comment on above: Performed By: #### E RUR #### [facility] [address] [place] [address] Dr. Ramsey Sanchez Urobilinogen Qn (U) 0.2 {Leatha'U}/dL Normal 0.2 - 1. 0 [facility] Comment on above: Performed By: #### E RUR #### [facility] [address] [place] [address] Dr. Ramsey Sanchez LACTATE/LACTIC ACIDon 2022 Lactate [Moles/Vol] 1.7 mmol/L Normal 0.4-2.0 [facility] Comment on above: Performed By: #### L ACT #### [facility] [address] [place] [address] Dr. Ramsey Sanchez PROF 14(COMP METB)on 023 Albumin [Mass/Vol] 3.1 g/dL Critically low 3.4-5.0 [facility] Comment on above: Performed By: #### C CATALINA MCMAHONN #### [facility] [address] [place] [address] Dr. Ramsey Sanchez Albumin/Globulin [Mass ratio] 0.8 {ratio} Normal [facility] Comment on above: Performed By: #### C MIKAELA MCMAHONTROPN #### [facility] [address] [place] [address] Dr. Ramsey Sanchez ALP [Catalytic activity/Vol] 73 U/L Normal 46-116 [facility] Comment on above: Performed By: #### C LISANDRO, HSTROPN #### [facility] [address] [address] [address] Ramsey Sanchez ALT [Catalytic activity/Vol] 22 U/L Normal 16-63 [facility] Comment on above: Performed By: #### C LISANDRO, HSTROPN #### [facility] [address] [address] [address] Ramsey Sanchez Anion gap [Moles/Vol] 13.5 mmol/L Normal [facility] Comment on above: Performed By: #### C LISANDRO, HSTROPN #### [facility] [address] [place] [address] Dr. Ramsey Sanchez AST [Catalytic activity/Vol] 26 U/L Normal 15-37 [facility] Comment on above: Performed By: #### C LISANDRO, HSTROPN #### [facility] [address] [place] [address] Dr. Ramsey Sanchez Bilirubin [Mass/Vol] 0.4 mg/dL Normal 0.2-1.0 [facility] Comment on above: Performed By: #### C LISANDRO, HSTROPN #### [facility] [address] [place] [address] Dr. Ramsey Sanchez Calcium [Mass/Vol] 8.4 mg/dL Critically low 8.5-10.1 [facility] Comment on above: Performed By: #### C LISANDRO, HSTROPN #### [facility] [address] [place] [address] Dr. Ramsey Sanchez Chloride [Moles/Vol] 107 mmol/L Normal 98-107 [facility] Comment on above: Performed By: #### C LISANDRO, HSTROPN #### [facility] [address] [place] [address] Dr. Ramsey Sanchez CO2 [Moles/Vol] 26.1 mmol/L Normal 21.0-32.0 [facility] Comment on above: Performed By: #### C LISANDRO, HSTROPN #### [facility] [address] [address] [address] Ramsey Sanchez Creatinine [Mass/Vol] 0.94 mg/dL Normal 0.70-1.30 [facility] Comment on above: Performed By: #### C MP, HSTROPN #### [facility] [address] [address] [address] Ramsey Sanchez EGFR-AF INDIAN >60 Normal >=60 [facility] Comment on above: Performed By: #### C MP, HSTROPN #### [facility] [address] [address] [address] Ramsey Sanchez EGFR-NON AF INDIAN >60 Normal >=60 [facility] Comment on above: Performed By: #### C MP, HSTROPN #### [facility] [address] [address] [address] Ramsey Sanchez Globulin (S) [Mass/Vol] 3.7 g/dL Normal [facility] Comment on above: Performed By: #### C MP, HSTROPN #### [facility] [address] [address] [address] Ramsey Sanchez Glucose [Mass/Vol] 118 mg/dL Critically high 74-106 [facility] Comment on above: Performed By: #### C MP, HSTROPN #### [facility] [address] [address] [address] Ramsey Sanchez Potassium [Moles/Vol] 3.6 mmol/L Normal 3.5-5.1 [facility] Comment on above: Performed By: #### C MP, HSTROPN #### [facility] [address] [address] [address] Ramsey Sanchez Protein [Mass/Vol] 6.8 g/dL Normal 6.4-8.2 [facility] Comment on above: Performed By: #### C MP, HSTROPN #### [facility] [address] [address] [address] Ramsey Sanchez Sodium [Moles/Vol] 143 mmol/L Normal 136-145 [facility] Comment on above: Performed By: #### C MP, HSTROPN #### [facility] [address] [address] [address] Ramsey Sanchez Urea nitrogen [Mass/Vol] 19.0 mg/dL Critically high 7.0-18.0 [facility] Comment on above: Performed By: #### C MP, HSTROPN #### [facility] [address] [address] [address] Ramsey Sanchez Urea nitrogen/Creatinine [Mass ratio] 20.2 mg/mg Normal [facility] Comment on above: Performed By: #### C LISANDRO, HSTROPN #### [facility] [address] [address] [address] Ramsey Sanchez TROPONIN, HIGH SENSITIVITYon 09-29-2022 HSTROP 9.8 pg/mL Normal 4.0-76.1 [facility] Comment on above: Result Comment: CUT- OFF POINTS HAVE BEEN ESTABLISHED BASED ON THE FOURTH UNIVERSAL DEFINITIONS OF MYOCARDIAL INFARCTION. THE UPPER REFERENCE LIMIT (URL) OF TROPONIN, DEFINED THE 99TH PERCENTILE OF cTnI DISTRIBUTION IN A REFERENCE POPULATION, HAS BEEN CONFIRMED THE DECISION THRESHOLD FOR AL DIAGNOSIS. Performed By: #### C LISANDRO, HSTROPN #### [facility] [address] [place] [address] Dr. Ramsey Sanchez XR CHEST 1 Von [...] hardware and overlying objects out of the [id number]. Electronically authenticated by: ALANNA CARLOS Date: 2022-09-29 16:37 Normal [facility] BNPon 09-25-2022 Natriuretic peptide B (Bld) [Mass/Vol] 720.0 pg/mL Normal <=1,800.0 [facility] Comment on above: Performed By: #### C XSTOOL #### [facility] [address] [place] [address] Dr. Ramsey Sanchez CARDIAC RAFI ADMITon 023 CK [Catalytic activity/Vol] 198 U/L Normal 39-308 [facility] Comment on above: Performed By: #### C XSTOOL #### [facility] [address] [place] [address] Dr. Ramsey Sanchez CK.MB [Mass/Vol] 2.62 ng/mL Normal <=3.60 [facility] Comment on above: Performed By: #### C XSTOOL #### [facility] [address] [place] [address] Dr. Ramsey Sanchez HSTROP 8.8 pg/mL Normal 4.0-76.1 [facility] Comment on above: Result Comment: CUT- OFF POINTS HAVE BEEN ESTABLISHED BASED ON THE FOURTH UNIVERSAL DEFINITIONS OF MYOCARDIAL INFARCTION. THE UPPER REFERENCE LIMIT (URL) OF TROPONIN, DEFINED THE 99TH PERCENTILE OF cTnI DISTRIBUTION IN A REFERENCE POPULATION, HAS BEEN CONFIRMED THE DECISION THRESHOLD FOR AL DIAGNOSIS. Performed By: #### C XSTOOL #### [facility] [address] [place] [address] Dr. Ramsey Sanchez MARILYN 69 ng/mL Normal 16-96 [facility] Comment on above: Performed By: #### C XSTOOL #### [facility] [address] [place] [address] Dr. Ramsey Sanchez CBC AUTO DIFFon 09-25-2022 BASO # 0.0 103/ul Normal 0.0-0.1 [facility] Comment on above: Performed By: #### C BC #### [facility] [address] [place] [address] Dr. Ramsey Sanchez Basophils/100 WBC (Bld) 0.2 % Normal 0.2-2.0 [facility] Comment on above: Performed By: #### C BC #### [facility] [address] [place] [address] Dr. Ramsey Sanchez EO # 0.0 103/ul Normal 0.0-0.7 [facility] Comment on above: Performed By: #### C BC #### [facility] [address] [place] [address] Dr. Ramsey Sanchez Eosinophils/100 WBC (Bld) 0.1 % Critically low 0.9-7.0 [facility] Comment on above: Performed By: #### C BC #### [facility] [address] [place] [address] Dr. Ramsey Sanchez Erythrocyte distribution width (RBC) [Ratio] 14.0 % Normal 11.0-15.0 [facility] Comment on above: Performed By: #### C BC #### [facility] [address] [place] [address] Dr. Ramsey Sanchez Hematocrit (Bld) [Volume fraction] 45.4 % Normal 42.0-54.0 [facility] Comment on above: Performed By: #### C BC #### [facility] [address] [place] [address] Dr. Ramsey Sanchez Hemoglobin (Bld) [Mass/Vol] 14.4 g/dL Normal 14.0-18.0 [facility] Comment on above: Performed By: #### C BC #### [facility] [address] [place] [address] Dr. Ramsey Sanchez IG # 0.08 10e3/ul Critically high 0.00-0.03 [facility] Comment on above: Performed By: #### C BC #### [facility] [address] [place] [address] Dr. Ramsey Sanchez IG % 0.9 % Critically high 0.0-0.5 [facility] Comment on above: Performed By: #### C BC #### [facility] [address] [place] [address] Dr. Ramsey Sanchez LYMPH # 1.6 103/ul Normal 1.2-3.8 [facility] Comment on above: Performed By: #### C BC #### [facility] [address] [place] [address] Dr. Ramsey Sanchez Lymphocytes/100 WBC (Bld) 17.9 % Critically low 20.5-60.0 [facility] Comment on above: Performed By: #### C BC #### [facility] [address] [place] [address] Dr. Ramsey Sanchez MANUAL DIFF REQ NO Normal [facility] Comment on above: Performed By: #### C BC #### [facility] [address] [place] [address] Dr. Ramsey Sanchez MCH (RBC) [Entitic mass] 29.8 pg Normal 25.9-34.0 [facility] Comment on above: Performed By: #### C BC #### [facility] [address] [place] [address] Dr. Ramsey Sanchez MCHC (RBC) [Mass/Vol] 31.7 g/dL Normal 29.9-35.2 [facility] Comment on above: Performed By: #### C BC #### [facility] [address] [place] [address] Dr. Ramsey Sanchez MCV (RBC) [Entitic vol] 94.0 fL Normal 80.0-94.0 [facility] Comment on above: Performed By: #### C BC #### [facility] [address] [place] [address] Dr. Ramsey Sanchez MONO # 0.9 103/ul Critically high 0.3-0.8 [facility] Comment on above: Performed By: #### C BC #### [facility] [address] [place] [address] Dr. Ramsey Sanchez Monocytes/100 WBC (Bld) 9.6 % Normal 1.7-12.0 [facility] Comment on above: Performed By: #### C BC #### [facility] [address] [place] [address] Dr. Ramsey Sanchez NEUT # 6.3 103/ul Normal 1.4-6.5 [facility] Comment on above: Performed By: #### C BC #### [facility] [address] [place] [address] Dr. Ramsey Sanchez Neutrophils/100 WBC (Bld) 71.3 % Normal 43.0-75.0 [facility] Comment on above: Performed By: #### C BC #### [facility] [address] [place] [address] Dr. Ramsey Sanchez Platelet mean volume (Bld) [Entitic vol] 11.0 fL Normal 9.5-13.5 [facility] Comment on above: Performed By: #### C BC #### [facility] [address] [place] [address] Dr. Ramsey Sanchez PLT 203 103/ul Normal 150-450 [facility] Comment on above: Performed By: #### C BC #### [facility] [address] [place] [address] Dr. Ramsey Sanchez RBC 4.83 106/ul Normal 4.70-6.10 [facility] Comment on above: Performed By: #### C BC #### [facility] [address] [place] [address] Dr. Ramsey Sanchez WBC 8.9 103/ul Normal 4.0-11.0 [facility] Comment on above: Performed By: #### C BC #### [facility] [address] [place] [address] Dr. Ramsey Sanchez LACTATE/LACTIC ACIDon 2022 Lactate [Moles/Vol] 1.0 mmol/L Normal 0.4-2.0 [facility] Comment on above: Performed By: #### C BC #### [facility] [address] [place] [address] Dr. Ramsey Sanchez PROF 14(COMP METB)on 023 Albumin [Mass/Vol] 3.7 g/dL Normal 3.4-5.0 [facility] Comment on above: Performed By: #### C XSTOOL #### [facility] [address] [place] [address] Dr. Ramsey Sanchez Albumin/Globulin [Mass ratio] 0.9 {ratio} Normal [facility] Comment on above: Performed By: #### C XSTOOL #### [facility] [address] [place] [address] Dr. Ramsey Sanchez ALP [Catalytic activity/Vol] 68 U/L Normal 46-116 [facility] Comment on above: Performed By: #### C XSTOOL #### [facility] [address] [place] [address] Dr. Ramsey Sanchez ALT [Catalytic activity/Vol] 23 U/L Normal 16-63 [facility] Comment on above: Performed By: #### C XSTOOL #### [facility] [address] [place] [address] Dr. Ramsey Sanchez Anion gap [Moles/Vol] 12.6 mmol/L Normal [facility] Comment on above: Performed By: #### C XSTOOL #### [facility] [address] [place] [address] Dr. Ramsey Sanchez AST [Catalytic activity/Vol] 21 U/L Normal 15-37 [facility] Comment on above: Performed By: #### C XSTOOL #### [facility] [address] [place] [address] Dr. Ramsey Sanchez Bilirubin [Mass/Vol] 0.3 mg/dL Normal 0.2-1.0 [facility] Comment on above: Performed By: #### C XSTOOL #### [facility] [address] [place] [address] Dr. Ramsey Sanchez Calcium [Mass/Vol] 8.8 mg/dL Normal 8.5-10.1 [facility] Comment on above: Performed By: #### C XSTOOL #### [facility] [address] [place] [address] Dr. Ramsey Sanchez Chloride [Moles/Vol] 104 mmol/L Normal 98-107 [facility] Comment on above: Performed By: #### C XSTOOL #### [facility] [address] [place] [address] Dr. Ramsey Sanchez CO2 [Moles/Vol] 26.7 mmol/L Normal 21.0-32.0 [facility] Comment on above: Performed By: #### C XSTOOL #### [facility] [address] [address] [address] Ramsey Sanchez Creatinine [Mass/Vol] 1.27 mg/dL Normal 0.70-1.30 [facility] Comment on above: Performed By: #### C XSTOOL #### [facility] [address] [address] [address] Ramsey Sanchez EGFR-AF INDIAN >60 Normal >=60 [facility] Comment on above: Performed By: #### C XSTOOL #### [facility] [address] [address] [address] Ramsey Sanchez EGFR-NON AF INDIAN 54 mL/min/1.73m2 Critically low >=60 [facility] Comment on above: Performed By: #### C XSTOOL #### [facility] [address] [address] [address] Ramsey Sanchez Globulin (S) [Mass/Vol] 3.9 g/dL Normal [facility] Comment on above: Performed By: #### C XSTOOL #### [facility] [address] [place] [address] Dr. Ramsey Sanchez Glucose [Mass/Vol] 114 mg/dL Critically high 74-106 [facility] Comment on above: Performed By: #### C XSTOOL #### [facility] [address] [address] [address] Ramsey Sanchez Potassium [Moles/Vol] 4.3 mmol/L Normal 3.5-5.1 [facility] Comment on above: Performed By: #### C XSTOOL #### [facility] [address] [address] [address] Ramsey Sanchez Protein [Mass/Vol] 7.6 g/dL Normal 6.4-8.2 [facility] Comment on above: Performed By: #### C XSTOOL #### [facility] [address] [place] [address] Dr. Ramsey Sanchez Sodium [Moles/Vol] 139 mmol/L Normal 136-145 [facility] Comment on above: Performed By: #### C XSTOOL #### [facility] [address] [address] [address] Ramsey Sanchez Urea nitrogen [Mass/Vol] 19.0 mg/dL Critically high 7.0-18.0 [facility] Comment on above: Performed By: #### C XSTOOL #### [facility] [address] [address] [address] Ramsey Sanchez Urea nitrogen/Creatinine [Mass ratio] 15.0 mg/mg Normal [facility] Comment on above: Performed By: #### C XSTOOL #### [facility] [address] [address] [address] Ramsey Sanchez XR CHEST 1 Von [...] by: TRACY HIGHTOWER Date: 2022-09-24 23:29 Normal [facility] COVID + FLU Quick Testingon 09-22-2022 SARS-CoV-2 (COVID-19) RNA MICHELLE+probe Ql (Unsp spec) Positive [employer] Other COVID + FLU Quick Testing Negative [employer] Other POINT OF CARE GLUCOSEon 07-16 Glucose [Mass/Vol] 146 mg/dL Critically high 74-106 [facility] Comment on above: Performed By: #### C XSTOOL #### [facility] [address] [address] [address] Ramsey Sanchez US ARTERY UP EXT [...] ERWIN FALCON Date: 2022-04-16 17:21 Normal [facility] LACTOFERRIN FECAL QUANTon Lactoferrin, Fecal, Quant. 1.43 ug/mL(g) Normal 0.00-7.24 [facility] Comment on above: Result Comment: . Baseline [...] (IBS). Performed By: #### C XSTOOL #### [facility] [address] [place] [address] Dr. Ramsey Sanchez CBC AUTO DIFFon 03-10-2022 BASO # 0.1 103/ul Normal 0.0-0.1 [facility] Comment on above: Performed By: #### C BC #### [facility] [address] [place] [address] Dr. Ramsey Sanchez Basophils/100 WBC (Bld) 0.9 % Normal 0.2-2.0 [facility] Comment on above: Performed By: #### C BC #### [facility] [address] [place] [address] Dr. Ramsey Sanchez EO # 0.3 103/ul Normal 0.0-0.7 [facility] Comment on above: Performed By: #### C BC #### [facility] [address] [place] [address] Dr. Ramsey Sanchez Eosinophils/100 WBC (Bld) 2.6 % Normal 0.9-7.0 [facility] Comment on above: Performed By: #### C BC #### [facility] [address] [place] [address] Dr. Ramsey Sanchez Erythrocyte distribution width (RBC) [Ratio] 13.2 % Normal 11.0-15.0 [facility] Comment on above: Performed By: #### C BC #### [facility] [address] [place] [address] Dr. Ramsey Sanchez Hematocrit (Bld) [Volume fraction] 46.1 % Normal 42.0-54.0 [facility] Comment on above: Performed By: #### C BC #### [facility] [address] [place] [address] Dr. Ramsey Sanchez Hemoglobin (Bld) [Mass/Vol] 14.5 g/dL Normal 14.0-18.0 [facility] Comment on above: Performed By: #### C BC #### [facility] [address] [place] [address] Dr. Ramsey Sanchez IG # 0.15 10e3/ul Critically high 0.00-0.03 [facility] Comment on above: Performed By: #### C BC #### [facility] [address] [place] [address] Dr. Ramsey Sanchez IG % 1.3 % Critically high 0.0-0.5 [facility] Comment on above: Performed By: #### C BC #### [facility] [address] [place] [address] Dr. Ramsey Sanchez LYMPH # 2.7 103/ul Normal 1.2-3.8 [facility] Comment on above: Performed By: #### C BC #### [facility] [address] [place] [address] Dr. Ramsey Sanchez Lymphocytes/100 WBC (Bld) 23.0 % Normal 20.5-60.0 [facility] Comment on above: Performed By: #### C BC #### [facility] [address] [place] [address] Dr. Ramsey Sanchez MANUAL DIFF REQ NO Normal [facility] Comment on above: Performed By: #### C BC #### [facility] [address] [place] [address] Dr. Ramsey Sanchez MCH (RBC) [Entitic mass] 31.0 pg Normal 25.9-34.0 [facility] Comment on above: Performed By: #### C BC #### [facility] [address] [place] [address] Dr. Ramsey Sanchez MCHC (RBC) [Mass/Vol] 31.5 g/dL Normal 29.9-35.2 [facility] Comment on above: Performed By: #### C BC #### [facility] [address] [place] [address] Dr. Ramsey Sanchez MCV (RBC) [Entitic vol] 98.5 fL Critically high 80.0-94.0 [facility] Comment on above: Performed By: #### C BC #### [facility] [address] [place] [address] Dr. Ramsey Sanchez MONO # 0.9 103/ul Critically high 0.3-0.8 [facility] Comment on above: Performed By: #### C BC #### [facility] [address] [place] [address] Dr. Ramsey Sanchez Monocytes/100 WBC (Bld) 7.4 % Normal 1.7-12.0 [facility] Comment on above: Performed By: #### C BC #### [facility] [address] [place] [address] Dr. Ramsey Sanchez NEUT # 7.6 103/ul Critically high 1.4-6.5 [facility] Comment on above: Performed By: #### C BC #### [facility] [address] [place] [address] Dr. Ramsey Sanchez Neutrophils/100 WBC (Bld) 64.8 % Normal 43.0-75.0 [facility] Comment on above: Performed By: #### C BC #### [facility] [address] [address] [address] Ramsey Sanchez Platelet mean volume (Bld) [Entitic vol] 11.5 fL Normal 9.5-13.5 [facility] Comment on above: Performed By: #### C BC #### [facility] [address] [address] [address] Ramsey Sanchez PLT 243 103/ul Normal 150-450 [facility] Comment on above: Performed By: #### C BC #### [facility] [address] [address] [address] Ramsey Sanchez RBC 4.68 106/ul Critically low 4.70-6.10 [facility] Comment on above: Performed By: #### C BC #### [facility] [address] [address] [address] Ramsey Sanchez WBC 11.7 103/ul Critically high 4.0-11.0 [facility] Comment on above: Performed By: #### C BC #### [facility] [address] [address] [address] Ramsey Sanchez GLYCOHEMOGLOBIN A1Con 2021 ADA RECOMMENDATION SEE BELOW Normal [facility] Comment on above: Result Comment: ADA RECOMMENDED LIMIT 4.0 - 6.0 ADA THERAPEUTIC TARGET < 7.0 ACTION SUGGESTED > 7.0 Performed By: #### A 1C #### [facility] [address] [address] [address] Ramsey Sanchez Glucose [Mass/Vol] 123 mg/dL Normal [facility] Comment on above: Performed By: #### A 1C #### [facility] [address] [address] [address] Ramsey Sanchez HbA1c (Bld) [Mass fraction] 5.9 % Normal 4.5-6.2 [facility] Comment on above: Performed By: #### A 1C #### [facility] [address] [address] [address] Ramsey Sanchez LIPID PROFILEon 03-10-2022 CHOL-HDL RATIO NORM SEE BELOW Normal [facility] Comment on above: Result Comment: 3.3 - 4.4 LOW RISK 4.4 - 7.1 AVERAGE RISK 7.1 - 11.0 MODERATE RISK >11.0 HIGH RISK Performed By: #### C BC #### [facility] [address] [place] [address] Dr. Ramsey Sanchez Cholesterol [Mass/Vol] 121 mg/dL Normal <=200 [facility] Comment on above: Performed By: #### C BC #### [facility] [address] [address] [address] Ramsey Sanchez Cholesterol in HDL [Mass/Vol] 30 mg/dL Critically low 40-60 [facility] Comment on above: Performed By: #### C BC #### [facility] [address] [place] [address] Dr. Ramsey Sanchez Cholesterol in LDL [Mass/Vol] 47.6 mg/dL Normal [facility] Comment on above: Performed By: #### C BC #### [facility] [address] [place] [address] Dr. Ramsey Sanchez Cholesterol.total/Chol esterol in HDL [Mass ratio] 4.0 {ratio} Normal [facility] Comment on above: Performed By: #### C BC #### [facility] [address] [place] [address] Dr. Ramsey Sanchez HDL NORMAL > or = 60 mg/dl - LO W CARDIOVASCULAR RISK <40 mg/dl - HIGH CARDIOVASCULAR RISK Normal [facility] Comment on above: Performed By: #### C BC #### [facility] [address] [place] [address] Dr. Ramsey Sanchez LDL CALC NORMAL SEE BELOW Normal [facility] Comment on above: Result Comment: <100 mg/dl OPTIMAL 100 - 129 mg/dl NEAR OR ABOVE OPTIMAL 130 - 159 mg/dl BORDERLINE HIGH 160 - 189 mg/dl HIGH >190 mg/dl VERY HIGH Performed By: #### C BC #### [facility] Laboratory [address] [place] [address] Dr. Ramsey Sanchez Triglyceride [Mass/Vol] 217 mg/dL Critically high <=150 [facility] Comment on above: Performed By: #### C BC #### [facility] Laboratory [address] [place] [address] Dr. Ramsey Sanchez VLDL CALC 43.4 mg/dL Normal [facility] Comment on above: Performed By: #### C BC #### [facility] [address] [place] [address] Dr. Ramsey Sacnhez LIVER PROFILEon 03-10-2022 Albumin [Mass/Vol] 3.9 g/dL Normal 3.4-5.0 [facility] Comment on above: Performed By: #### C BC #### [facility] [address] [place] [address] Dr. Ramsey Sanchez Albumin/Globulin [Mass ratio] 1.1 {ratio} Normal [facility] Comment on above: Performed By: #### C BC #### [facility] [address] [place] [address] Dr. Ramsey Sanchez ALP [Catalytic activity/Vol] 75 U/L Normal 46-116 [facility] Comment on above: Performed By: #### C BC #### [facility] [address] [place] [address] Dr. Ramsey Sanchez ALT [Catalytic activity/Vol] 21 U/L Normal 16-63 [facility] Comment on above: Performed By: #### C BC #### [facility] [address] [place] [address] Dr. Ramsey Sanchez AST [Catalytic activity/Vol] 17 U/L Normal 15-37 [facility] Comment on above: Performed By: #### C BC #### [facility] [address] [place] [address] Dr. Ramsey Sanchez BILI, CONJUGATED 0.1 mg/dL Normal 0.0-0.2 [facility] Comment on above: Performed By: #### C BC #### [facility] [address] [place] [address] Dr. Ramsey Sanchez Bilirubin [Mass/Vol] 0.4 mg/dL Normal 0.2-1.0 [facility] Comment on above: Performed By: #### C BC #### [facility] [address] [place] [address] Dr. Ramsey Sanchez Globulin (S) [Mass/Vol] 3.5 g/dL Normal [facility] Comment on above: Performed By: #### C BC #### [facility] [address] [place] [address] Dr. Ramsey Sanchez Protein [Mass/Vol] 7.4 g/dL Normal 6.4-8.2 [facility] Comment on above: Performed By: #### C BC #### [facility] [address] [place] [address] Dr. Ramsey Sanchez MICROALBUMIN, RAND URon 10- mALB <1.3 Normal <=30.0 [facility] Comment on above: Performed By: #### M ALBR #### [facility] [address] [place] [address] Dr. Ramsey Sanchez PROF CHEM 8 (BAS METB)on Anion gap [Moles/Vol] 12.6 mmol/L Normal [facility] Comment on above: Performed By: #### C BC #### [facility] [address] [place] [address] Dr. Ramsey Sanchez Calcium [Mass/Vol] 8.9 mg/dL Normal 8.5-10.1 [facility] Comment on above: Performed By: #### C BC #### [facility] [address] [place] [address] Dr. Ramsey Sanchez Chloride [Moles/Vol] 103 mmol/L Normal 98-107 [facility] Comment on above: Performed By: #### C BC #### [facility] [address] [place] [address] Dr. Ramsey Sanchez CO2 [Moles/Vol] 28.5 mmol/L Normal 21.0-32.0 [facility] Comment on above: Performed By: #### C BC #### [facility] [address] [place] [address] Dr. Ramsey Sanchez Creatinine [Mass/Vol] 0.89 mg/dL Normal 0.70-1.30 [facility] Comment on above: Performed By: #### C BC #### [facility] [address] [place] [address] Dr. Ramsey Sanchez EGFR-AF INDIAN >60 Normal >=60 [facility] Comment on above: Performed By: #### C BC #### [facility] [address] [place] [address] Dr. Ramsey Sanchez EGFR-NON AF INDIAN >60 Normal >=60 [facility] Comment on above: Performed By: #### C BC #### [facility] [address] [place] [address] Dr. Ramsey Sanchez Glucose [Mass/Vol] 102 mg/dL Normal 74-106 [facility] Comment on above: Performed By: #### C BC #### [facility] [address] [place] [address] Dr. Ramsey Sanchez Potassium [Moles/Vol] 4.1 mmol/L Normal 3.5-5.1 [facility] Comment on above: Performed By: #### C BC #### [facility] [address] [place] [address] Dr. Ramsey Sanchez Sodium [Moles/Vol] 140 mmol/L Normal 136-145 [facility] Comment on above: Performed By: #### C BC #### [facility] [address] [place] [address] Dr. Ramsey Sanchez Urea nitrogen [Mass/Vol] 16.0 mg/dL Normal 7.0-18.0 [facility] Comment on above: Performed By: #### C BC #### [facility] [address] [place] [address] Dr. Ramsey Sanchez Urea nitrogen/Creatinine [Mass ratio] 18.0 mg/mg Normal [facility] Comment on above: Performed By: #### C BC #### [facility] [address] [place] [address] Dr. Ramsey Sanchez STOOL CULTUREon 03-10-2022 Campylobacter Culture Final report Normal [facility] Comment on above: Performed By: #### C XSTOOL #### [facility] [address] [place] [address] Dr. Ramsey Sanchez E coli Shiga Toxin EIA Negative Normal Negative [facility] Comment on above: Performed By: #### C XSTOOL #### [facility] [address] [address] [address] Ramsey Sanchez Result 1 Comment Normal [facility] Comment on above: Result Comment: No S almonella or Shigella recovered. Performed By: #### C XSTOOL #### [facility] [address] [address] [address] Ramsey Sanchez Result Comment: No C ampylobacter species isolated. Salmonella/Shigella Screen Final report Normal [facility] Comment on above: Performed By: #### C XSTOOL #### [facility] [address] [address] [address] Ramsey Sanchez VITAMIN D 25 OHon 03-10-2022 VIT D 25-OH 40.2 ng/mL [facility] Comment on above: Performed By: #### V ITAD #### [facility] [address] [place] [address] Dr. Ramsey Sanchez VIT D RANGES SEE BELOW Normal [facility] Comment on above: Result Comment: <20 ng/mL Vit D deficient 20 - <30 ng/mL Vit D insufficient 30 - 100 ng/mL Vit D sufficient >100 ng/mL Potential Toxicity Performed By: #### V ITAD #### [facility] [address] [address] [address] Ramsey Sanchez POC GLUCOSE LABon 08-31-2019 Glucose [Mass/Vol] 120 mg/dL High 70-100 [facility] Comment on above: Performed By: #### 8 [id number] #### [facility] [address] [place] [address], [place] Glucose [Mass/Vol] 114 mg/dL High 70-100 [facility] Comment on above: Performed By: #### 8 [id number] #### [facility] [address] [place] [address], [place] Glucose [Mass/Vol] 136 mg/dL High 70-100 [facility] Comment on above: Performed By: #### 8 [id number] #### [facility] [address] [place] [address], [place] BASIC METABOLIC PANELon 08-15 Calcium [Mass/Vol] 9.3 mg/dL Normal 8.6-10.3 [facility] Comment on above: Performed By: #### 0 0071 #### [facility] [address] [place] [address], [place] Chloride [Moles/Vol] 103 mmol/L Normal 98-107 [facility] Comment on above: Performed By: #### 0 0071 #### [facility] [address] [place] [address], [place] CO2 [Moles/Vol] 27 mmol/L Normal 21-31 [facility] Comment on above: Performed By: #### 0 0071 #### [facility] [address] [place] [address], [place] Creatinine [Mass/Vol] 1.04 mg/dL Normal 0.70-1.30 [facility] Comment on above: Performed By: #### 0 0071 #### [facility] [address] [place] [address], [place] GFR/1.73 sq M predicted among blacks MDRD (S/P/Bld) [Vol rate/Area] mL/min/{1.73_m2} Normal >60 [facility] Comment on above: Result Comment: Calc ulation may not be valid for patients over 70 years Performed By: #### 0 0071 #### [facility] [address] [place] [address], [place] GFR/1.73 sq M predicted among non-blacks MDRD (S/P/Bld) [Vol rate/Area] mL/min/{1.73_m2} Normal >60 [facility] Comment on above: Result Comment: Calc ulation may not be valid for patients over 70 years Performed By: #### 0 [id number] #### [facility] [address] [place] [address], [place] Glucose [Mass/Vol] 128 mg/dL High 70-100 [facility] Comment on above: Performed By: #### 0 0071 #### [facility] [address] [place] [address], [facility] Potassium [Moles/Vol] 4.2 mmol/L Normal 3.5-5.1 [facility] Comment on above: Performed By: #### 0 0071 #### [facility] [address] [place] [address], [facility] Sodium [Moles/Vol] 139 mmol/L Normal 136-145 [facility] Comment on above: Performed By: #### 0 1 #### [facility] [address] [place] [id number], [facility] Urea nitrogen [Mass/Vol] 20 mg/dL Normal 7-25 [facility] Comment on above: Performed By: #### 0 1 #### [facility] [address] [place] [address], [facility] CBC COMPLETE BLOOD COUNTon 08-30-2019 Erythrocyte distribution width (RBC) [Ratio] 13.9 % Normal 11.5-15.0 [facility] Comment on above: Performed By: #### 5 08 #### [facility] [address] [place] [address], [facility] Hematocrit (Bld) [Volume fraction] 44.9 % Normal 39.0-50.0 [facility] Comment on above: Performed By: #### 5 08 #### [facility] [address] [place] [address], [facility] Hemoglobin (Bld) [Mass/Vol] 14.5 g/dL Normal 13.0-17.0 [facility] Comment on above: Performed By: #### 5 08 #### [facility] [address] [place] [address], [facility] MCH (RBC) [Entitic mass] 30.7 pg Normal 27.0-33.0 [facility] Comment on above: Performed By: #### 5 [id number] #### [facility] [address] [facility] [place] [address], [facility] MCHC (RBC) [Mass/Vol] 32.3 g/dL Normal 32.0-35.0 [facility] Comment on above: Performed By: #### 5 [id number] #### [facility] [address] [facility] [place] [address], [facility] MCV (RBC) [Entitic vol] 95.1 fL Normal 82.0-98.0 [facility] Comment on above: Performed By: #### 5 0608 #### [facility] [address] [facility] [place] [address], [facility] Nucleated RBC/100 WBC (Bld) [Ratio] 0 % Normal 0-0 [facility] Comment on above: Performed By: #### 5 0608 #### [facility] [address] [facility] [place] [address], [facility] PLAT CNT 238 10*3/uL Normal 150-400 [facility] Comment on above: Performed By: #### 5 0608 #### [facility] [address] [facility] [place] [address], [facility] RBC (Bld) [#/Vol] 4.72 10*6/uL Normal 4.20-5.70 [facility] Comment on above: Performed By: #### 5 0608 #### [facility] [address] [facility] [place] [address], [facility] WBC (Bld) [#/Vol] 12.83 10*3/uL High 4.00-10.60 [facility] Comment on above: Performed By: #### 5 [id number] #### [facility] [address] Cardiovascular Lab Reporton 08-30-2019 Cardiovascular Lab Report [facility] Patient Name: Bennett, [facility] MR #: [id number] Physician: Margaret Arellano, Department of M.D. Medicine Service Date: 08/30/2019 Division of Birthdate: 1940 Cardiology Room #: 3AB [id number] [facility] [address] [place] [address] Cardiovascular Laboratory Report FINAL IMPRESSIONS: 1. 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 2. 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 3. 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 4. 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 Arellano in the [place] office in the next 2 to 4 [...] left common femoral artery was obtained. A 6-Mozambican 11 cm sheath was inserted without difficulty. Limited femoral angiography was performed. Bilateral selective coronary angiography was performed using JL4 and JR4 catheters. After reviewing the images, it was elected to proceed with an interventional procedure. A 6-Mozambican XB 3.5 guide catheter was advanced over [...] conclude the procedure. Attempts to deploy a 6-Mozambican MynxGrip closure device were unsuccessful. Therefore, manual [...] Arellano M.D. Date Trans: 08/30/2019 05:00 P/emmanuelle [id number] cc: Demetrius Cooper MD [place] [address] Normal [facility] POC GLUCOSE LABon 08-30-2019 Glucose [Mass/Vol] 172 mg/dL High 70-100 [facility] Comment on above: Performed By: #### [id number] #### [facility] [address] [facility] [place] [address], [facility] Glucose [Mass/Vol] 138 mg/dL High 70-100 [facility] Comment on above: Performed By: #### 8 [id number] #### [facility] [address] [facility] [place] [address], [facility] Vital Signs Date Time Vital Sign Value Performing Clinician Facility 01-18-2025 09:32-0400 Body height 165.1 cm Veena Adkins DO Work Phone: [facility] 01-18-2025 09:32-0400 Body mass index (BMI) [Ratio] 24.63 kg/m2 Veena Itzkowitz DO Work Phone: [facility] 01-18-2025 09:32-0400 Body weight 67.13 kg Veena Itzkowitz DO Work Phone: [facility] 12-26-2024 13:08-0400 Body weight 72.12 kg Demetrius Cooper MD Work Phone: [facility] 12-11-2024 13:30-0400 Body mass index (BMI) [Ratio] 26.65 kg/m2 Mary Schneider MD Work Phone: [facility] 12-11-2024 13:30-0400 Body weight 72.65 kg Mary Schneider MD Work Phone: [facility] 12-11-2024 13:30-0400 Diastolic blood pressure 69 mm[Hg] Mary Schneider MD Work Phone: [facility] 12-11-2024 13:30-0400 Systolic blood pressure 111 mm[Hg] Mary Schneider MD Work Phone: [facility] 11-23-2024 09:57-0400 Body temperature 98 [degF] Demetrius Cooper MD Work Phone: [facility] 11-23-2024 09:57-0400 Body weight 73.02 kg Demetrius Cooper MD Work Phone: [facility] 11-23-2024 09:57-0400 Diastolic blood pressure 64 mm[Hg] Demetrius Cooper MD Work Phone: [facility] 11-23-2024 09:57-0400 Heart rate 68 /min Demetrius Cooper MD Work Phone: [facility] 11-23-2024 09:57-0400 Respiratory rate 18 /min Demetrius Cooper MD Work Phone: [facility] 11-23-2024 09:57-0400 SaO2% (BldA) [Mass fraction] 98 % Demetrius Cooper MD Work Phone: [facility] 11-23-2024 09:57-0400 Systolic blood pressure 103 mm[Hg] Demetrius Cooper MD Work Phone: [facility] 10-11-2024 13:56-0400 Body height 165.1 cm Veena Itzkowitz DO Work Phone: [facility] 10-11-2024 13:56-0400 Body mass index (BMI) [Ratio] 24.63 kg/m2 Veena Itzkowitz DO Work Phone: [facility] 10-11-2024 13:56-0400 Body weight 67.13 kg Veena Itzkowitz DO Work Phone: [facility] 10-04-2024 14:58-0400 Body height 167.64 cm Demetrius Cooper MD Work Phone: [facility] 10-03-2024 12:00-0400 Diastolic blood pressure 63 mm[Hg] Demetrius Cooper MD Work Phone: [facility] 10-03-2024 12:00-0400 Heart rate 63 /min Demetrius Cooper MD Work Phone: [facility] 10-03-2024 12:00-0400 Respiratory rate 16 /min Demetrius Cooper MD Work Phone: [facility] 10-03-2024 12:00-0400 SaO2% (BldA) [Mass fraction] 95 % Demetrius Cooper MD Work Phone: [facility] 10-03-2024 12:00-0400 Systolic blood pressure 131 mm[Hg] Demetrius Cooper MD Work Phone: [facility] 10-03-2024 11:30-0400 Inhaled oxygen flow rate 4 L/min Demetrius Cooper MD Work Phone: [facility] 10-03-2024 10:15-0400 Body height 165.1 cm Demetrius Cooper MD Work Phone: [facility] 10-03-2024 10:15-0400 Body temperature 97.3 [degF] Demetrius Cooper MD Work Phone: [facility] 10-03-2024 10:15-0400 Body weight 67.13 kg Demetrius Cooper MD Work Phone: [facility] 09-28-2024 13:47-0400 Body height 165.1 cm Missy Lowe PA Work Phone: [facility] 09-28-2024 13:47-0400 Body mass index (BMI) [Ratio] 24.63 kg/m2 Missy Lowe PA Work Phone: [facility] 09-28-2024 13:47-0400 Body weight 67.13 kg Missy Lowe PA Work Phone: [facility] 09-28-2024 13:47-0400 Diastolic blood pressure 68 mm[Hg] Missy Lowe PA Work Phone: [facility] 09-28-2024 13:47-0400 Systolic blood pressure 110 mm[Hg] Missy Lowe PA Work Phone: [facility] 09-27-2024 13:20-0400 Body height 165.1 cm Veena Itzkowitz DO Work Phone: [facility] 09-27-2024 13:20-0400 Body mass index (BMI) [Ratio] 24.96 kg/m2 Veena Itzkowitz DO Work Phone: [facility] 09-27-2024 13:20-0400 Body weight 68.04 kg Veena Itzkowitz DO Work Phone: [facility] 09-27-2024 13:20-0400 Diastolic blood pressure 62 mm[Hg] Veena Itzkowitz DO Work Phone: [facility] 09-27-2024 13:20-0400 Systolic blood pressure 94 mm[Hg] Veena Itzkowitz DO Work Phone: [facility] 09-26-2024 14:55-0400 Body height 165.1 cm Demetrius Cooper MD Work Phone: [facility] 09-26-2024 14:55-0400 Body mass index (BMI) [Ratio] 24.6 kg/m2 Demetrius Cooper MD Work Phone: [facility] 09-26-2024 14:55-0400 Body temperature 97.8 [degF] Demetrius Cooper MD Work Phone: [facility] 09-26-2024 14:55-0400 Body weight 67.13 kg Demetrius Cooper MD Work Phone: [facility] 09-26-2024 14:55-0400 Diastolic blood pressure 51 mm[Hg] Demetrius Cooper MD Work Phone: [facility] 09-26-2024 14:55-0400 Heart rate 66 /min Demetrius Cooper MD Work Phone: [facility] 09-26-2024 14:55-0400 Systolic blood pressure 85 mm[Hg] Demetrius Cooper MD Work Phone: [facility] 09-20-2024 21:13-0400 Body temperature 97.6 [degF] Demetrius Cooper MD Work Phone: [facility] 09-20-2024 21:13-0400 Diastolic blood pressure 62 mm[Hg] Demetrius Cooper MD Work Phone: [facility] 09-20-2024 21:13-0400 Heart rate 68 /min Demetrius Cooper MD Work Phone: [facility] 09-20-2024 21:13-0400 Respiratory rate 18 /min Demetrius Cooper MD Work Phone: [facility] 09-20-2024 21:13-0400 SaO2% (BldA) [Mass fraction] 96 % Demetrius Cooper MD Work Phone: [facility] 09-20-2024 21:13-0400 Systolic blood pressure 113 mm[Hg] Demetrius Cooper MD Work Phone: [facility] 09-20-2024 15:13-0400 Body height 165.1 cm Demetrius Cooper MD Work Phone: [facility] 09-20-2024 15:13-0400 Body weight 65 kg Demetrius Cooper MD Work Phone: [facility] 09-11-2024 13:07-0400 Body height 165.1 cm Mary Schneider MD Work Phone: [facility] 09-11-2024 13:07-0400 Body mass index (BMI) [Ratio] 24.84 kg/m2 Mary Schneider MD Work Phone: [facility] 09-11-2024 13:07-0400 Body temperature 96.8 [degF] Mary Schneider MD Work Phone: [facility] 09-11-2024 13:07-0400 Body weight 67.72 kg Mary Schneider MD Work Phone: [facility] 09-11-2024 10:14-0400 Body height 162.56 cm Demetrius Cooper MD Work Phone: [facility] 09-11-2024 10:14-0400 Body mass index (BMI) [Ratio] 25.7 kg/m2 Demetrius Cooper MD Work Phone: [facility] 09-11-2024 10:14-0400 Body weight 68.03 kg Demetrius Cooper MD Work Phone: [facility] 09-11-2024 10:14-0400 Diastolic blood pressure 74 mm[Hg] Demetrius Cooper MD Work Phone: [facility] 09-11-2024 10:14-0400 Heart rate 76 /min Demetrius Cooper MD Work Phone: [facility] 09-11-2024 10:14-0400 SaO2% (BldA) [Mass fraction] 98 % Demetrius Cooper MD Work Phone: [facility] 09-11-2024 10:14-0400 Systolic blood pressure 113 mm[Hg] Demetrius Cooper MD Work Phone: [facility] 08-23-2024 09:49-0400 Body temperature 97.5 [degF] Demetrius Cooper MD Work Phone: [facility] 08-23-2024 09:49-0400 Body weight 72.12 kg Demetrius Cooper MD Work Phone: [facility] 08-23-2024 09:49-0400 Diastolic blood pressure 94 mm[Hg] Demetrius Cooper MD Work Phone: [facility] 08-23-2024 09:49-0400 Heart rate 94 /min Demetrius Cooper MD Work Phone: [facility] 08-23-2024 09:49-0400 Respiratory rate 20 /min Demetrius Cooper MD Work Phone: [facility] 08-23-2024 09:49-0400 SaO2% (BldA) [Mass fraction] 98 % Dmeetrius Cooper MD Work Phone: [facility] 08-23-2024 09:49-0400 Systolic blood pressure 114 mm[Hg] Demetrius Cooper MD Work Phone: [facility] 08-21-2024 12:53-0400 Body height 167.64 cm Demetrius Cooper MD Work Phone: [facility] 08-21-2024 11:36-0400 Body temperature 98 [degF] Demetrius Cooper MD Work Phone: [facility] 08-21-2024 11:36-0400 Diastolic blood pressure 57 mm[Hg] Demetrius Cooper MD Work Phone: [facility] 08-21-2024 11:36-0400 Heart rate 76 /min Demetrius Cooper MD Work Phone: [facility] 08-21-2024 11:36-0400 Respiratory rate 18 /min Demetrius Cooper MD Work Phone: [facility] 08-21-2024 11:36-0400 SaO2% (BldA) [Mass fraction] 96 % Demetrius Cooper MD Work Phone: [facility] 08-21-2024 11:36-0400 Systolic blood pressure 122 mm[Hg] Demetrius Cooper MD Work Phone: [facility] 08-21-2024 04:13-0400 Body weight 70.9 kg Demetrius Cooper MD Work Phone: [facility] 08-20-2024 19:00-0400 Diastolic blood pressure 54 mm[Hg] Demetrius Cooper MD Work Phone: [facility] 08-20-2024 19:00-0400 Heart rate 61 /min Demetrius Cooper MD Work Phone: [facility] 08-20-2024 19:00-0400 Respiratory rate 18 /min Demetrius Cooper MD Work Phone: [facility] 08-20-2024 19:00-0400 SaO2% (BldA) [Mass fraction] 92 % Demetrius Cooper MD Work Phone: [facility] 08-20-2024 19:00-0400 Systolic blood pressure 104 mm[Hg] Demetrius Cooper MD Work Phone: [facility] 08-20-2024 18:04-0400 Body temperature 98.1 [degF] Demetrius Cooper MD Work Phone: [facility] 08-20-2024 16:57-0400 Body height 162.56 cm Demetrius Cooper MD Work Phone: [facility] 08-20-2024 16:57-0400 Body weight 71.6 kg Demetrius Cooper MD Work Phone: [facility] 08-17-2024 08:23-0400 Body height 167.64 cm Demetrius Cooper MD Work Phone: [facility] 08-17-2024 08:23-0400 Body temperature 97.3 [degF] Demetrius Cooper MD Work Phone: [facility] 08-17-2024 08:23-0400 Body weight 72.25 kg Demetrius Cooper MD Work Phone: [facility] 08-17-2024 08:23-0400 Diastolic blood pressure 71 mm[Hg] Demetrius Cooper MD Work Phone: [facility] 08-17-2024 08:23-0400 Heart rate 90 /min Demetrius Cooper MD Work Phone: [facility] 08-17-2024 08:23-0400 Respiratory rate 18 /min Demetrius Cooper MD Work Phone: [facility] 08-17-2024 08:23-0400 SaO2% (BldA) [Mass fraction] 95 % Demetrius Cooper MD Work Phone: [facility] 08-17-2024 08:23-0400 Systolic blood pressure 151 mm[Hg] Demetrius Cooper MD Work Phone: [facility] 08-16-2024 09:18-0400 Body weight 72.4 kg Demetrius Cooper MD Work Phone: [facility] 08-10-2024 15:40-0400 Body height 167.64 cm Demetrius Cooper MD Work Phone: [facility] 08-10-2024 08:25-0400 Body temperature 97.8 [degF] Demetrius Cooper MD Work Phone: [facility] 08-10-2024 08:25-0400 Diastolic blood pressure 65 mm[Hg] Demetrius Cooper MD Work Phone: [facility] 08-10-2024 08:25-0400 Heart rate 68 /min Demetrius Cooper MD Work Phone: [facility] 08-10-2024 08:25-0400 Respiratory rate 18 /min Demetrius Cooper MD Work Phone: [facility] 08-10-2024 08:25-0400 SaO2% (BldA) [Mass fraction] 94 % Demetrius Cooper MD Work Phone: [facility] 08-10-2024 08:25-0400 Systolic blood pressure 121 mm[Hg] Demetrius Cooper MD Work Phone: [facility] 08-09-2024 09:28-0400 Body weight 73.1 kg Demetrius Cooper MD Work Phone: [facility] 08-09-2024 09:16-0400 Body weight 73.1 kg Demetrius Cooper MD Work Phone: [facility] 08-09-2024 09:16-0400 Diastolic blood pressure 69 mm[Hg] Demetrius Cooper MD Work Phone: [facility] 08-09-2024 09:16-0400 Heart rate 77 /min Demetrius Cooper MD Work Phone: [facility] 08-09-2024 09:16-0400 Respiratory rate 18 /min Demetrius Cooper MD Work Phone: [facility] 08-09-2024 09:16-0400 SaO2% (BldA) [Mass fraction] 97 % Demetrius Cooper MD Work Phone: [facility] 08-09-2024 09:16-0400 Systolic blood pressure 110 mm[Hg] Demetrius Cooper MD Work Phone: [facility] 08-03-2024 09:58-0400 Body height 167.64 cm Demetrius Cooper MD Work Phone: [facility] 08-03-2024 08:27-0400 Body temperature 97.9 [degF] Demetrius Cooper MD Work Phone: [facility] 08-03-2024 08:27-0400 Diastolic blood pressure 74 mm[Hg] Demetrius Cooper MD Work Phone: [facility] 08-03-2024 08:27-0400 Heart rate 85 /min Demetrius Cooper MD Work Phone: [facility] 08-03-2024 08:27-0400 Respiratory rate 18 /min Demetrius Cooper MD Work Phone: [facility] 08-03-2024 08:27-0400 SaO2% (BldA) [Mass fraction] 95 % Demetrius Cooper MD Work Phone: [facility] 08-03-2024 08:27-0400 Systolic blood pressure 133 mm[Hg] Demetrius Cooper MD Work Phone: [facility] 07-28-2024 16:29-0400 Body height 167.64 cm Demetrius Cooper MD Work Phone: [facility] 07-27-2024 08:28-0400 Body temperature 98.1 [degF] Demetrius Cooper MD Work Phone: [facility] 07-27-2024 08:28-0400 Body weight 74.2 kg Demetrius Cooper MD Work Phone: [facility] 07-27-2024 08:28-0400 Diastolic blood pressure 79 mm[Hg] Demetrius Cooper MD Work Phone: [facility] 07-27-2024 08:28-0400 Heart rate 62 /min Demetrius Cooper MD Work Phone: [facility] 07-27-2024 08:28-0400 Respiratory rate 18 /min Demetrius Cooper MD Work Phone: [facility] 07-27-2024 08:28-0400 SaO2% (BldA) [Mass fraction] 95 % Demetrius Cooper MD Work Phone: [facility] 07-27-2024 08:28-0400 Systolic blood pressure 126 mm[Hg] Demetrius Cooper MD Work Phone: [facility] 07-26-2024 08:23-0400 Body temperature 97.6 [degF] Demetrius Cooper MD Work Phone: [facility] 07-26-2024 08:23-0400 Body weight 73.48 kg Demetrius Cooper MD Work Phone: [facility] 07-26-2024 08:23-0400 Diastolic blood pressure 72 mm[Hg] Demetrius Cooper MD Work Phone: [facility] 07-26-2024 08:23-0400 Heart rate 64 /min Demetrius Cooper MD Work Phone: [facility] 07-26-2024 08:23-0400 Respiratory rate 20 /min Demetrius Cooper MD Work Phone: [facility] 07-26-2024 08:23-0400 SaO2% (BldA) [Mass fraction] 96 % Demetrius Cooper MD Work Phone: [facility] 07-26-2024 08:23-0400 Systolic blood pressure 120 mm[Hg] Demetrius Cooper MD Work Phone: [facility] 07-20-2024 10:18-0500 Body weight 75.38 kg Demetrius Cooper MD Work Phone: [facility] 07-20-2024 08:46-0500 Body temperature 97.8 [degF] Demetrius Cooper MD Work Phone: [facility] 07-20-2024 08:46-0500 Body weight 74.84 kg Demetrius Cooper MD Work Phone: [facility] 07-20-2024 08:46-0500 Diastolic blood pressure 70 mm[Hg] Demetrius Cooper MD Work Phone: [facility] 07-20-2024 08:46-0500 Heart rate 68 /min Demetrius Cooper MD Work Phone: [facility] 07-20-2024 08:46-0500 Respiratory rate 20 /min Demetrius Cooper MD Work Phone: [facility] 07-20-2024 08:46-0500 SaO2% (BldA) [Mass fraction] 97 % Demetrius Cooper MD Work Phone: [facility] 07-20-2024 08:46-0500 Systolic blood pressure 137 mm[Hg] Demetrius Cooper MD Work Phone: [facility] 07-18-2024 08:50-0500 Body height 167.64 cm Demetrius Cooper MD Work Phone: [facility] 07-17-2024 14:33-0500 Diastolic blood pressure 73 mm[Hg] Demetrius Cooper MD Work Phone: [facility] 07-17-2024 14:33-0500 Heart rate 59 /min Demetrius Cooper MD Work Phone: [facility] 07-17-2024 14:33-0500 Respiratory rate 16 /min Demetrius Cooper MD Work Phone: [facility] 07-17-2024 14:33-0500 SaO2% (BldA) [Mass fraction] 96 % Demetrius Cooper MD Work Phone: [facility] 07-17-2024 14:33-0500 Systolic blood pressure 158 mm[Hg] Demetrius Cooper MD Work Phone: [facility] 07-17-2024 13:48-0500 Body temperature 97.3 [degF] Demetrius Cooper MD Work Phone: [facility] 07-17-2024 10:40-0500 Body height 165.1 cm Demetrius Cooper MD Work Phone: [facility] 07-17-2024 10:40-0500 Body weight 77.11 kg Demetrius Cooper MD Work Phone: [facility] 07-13-2024 16:08-0500 Body height 167.64 cm Demetrius Cooper MD Work Phone: [facility] 07-13-2024 08:37-0500 Body temperature 97.8 [degF] Demetrius Cooper MD Work Phone: [facility] 07-13-2024 08:37-0500 Body weight 77.01 kg Demetrius Cooper MD Work Phone: [facility] 07-13-2024 08:37-0500 Diastolic blood pressure 71 mm[Hg] Demetrius Cooper MD Work Phone: [facility] 07-13-2024 08:37-0500 Heart rate 64 /min Demetrius Cooper MD Work Phone: [facility] 07-13-2024 08:37-0500 Respiratory rate 18 /min Demetrius Cooper MD Work Phone: [facility] 07-13-2024 08:37-0500 SaO2% (BldA) [Mass fraction] 95 % Demetrius Cooper MD Work Phone: [facility] 07-13-2024 08:37-0500 Systolic blood pressure 127 mm[Hg] Demetrius Cooper MD Work Phone: [facility] 07-12-2024 08:41-0500 Body temperature 97.3 [degF] Demetrius Cooper MD Work Phone: [facility] 07-12-2024 08:41-0500 Body weight 76.65 kg Demetrius Cooper MD Work Phone: [facility] 07-12-2024 08:41-0500 Diastolic blood pressure 60 mm[Hg] Demetrius Cooper MD Work Phone: [facility] 07-12-2024 08:41-0500 Heart rate 61 /min Demetrius Cooper MD Work Phone: [facility] 07-12-2024 08:41-0500 Respiratory rate 20 /min Demetrius Cooper MD Work Phone: [facility] 07-12-2024 08:41-0500 SaO2% (BldA) [Mass fraction] 96 % Demetrius Cooper MD Work Phone: [facility] 07-12-2024 08:41-0500 Systolic blood pressure 106 mm[Hg] Demetrius Cooper MD Work Phone: [facility] 07-06-2024 11:06-0500 Body height 167.64 cm Demetrius Cooper MD Work Phone: [facility] 07-06-2024 08:36-0500 Body temperature 97.6 [degF] Demetrius Cooper MD Work Phone: [facility] 07-06-2024 08:36-0500 Body weight 77.83 kg Demetrius Cooper MD Work Phone: [facility] 07-06-2024 08:36-0500 Diastolic blood pressure 71 mm[Hg] Demetrius Cooper MD Work Phone: [facility] 07-06-2024 08:36-0500 Heart rate 63 /min Demetrius Cooper MD Work Phone: [facility] 07-06-2024 08:36-0500 Respiratory rate 18 /min Demetrius Cooper MD Work Phone: [facility] 07-06-2024 08:36-0500 SaO2% (BldA) [Mass fraction] 95 % Demetrius Cooper MD Work Phone: [facility] 07-06-2024 08:36-0500 Systolic blood pressure 122 mm[Hg] Demetrius Cooper MD Work Phone: [facility] 06-22-2024 14:58-0500 Body height 162.56 cm Demetrius Cooper MD Work Phone: [facility] 06-22-2024 14:58-0500 Body temperature 97.5 [degF] Demetrius Cooper MD Work Phone: [facility] 06-22-2024 14:58-0500 Body weight 78 kg Demetrius Cooper MD Work Phone: [facility] 06-22-2024 14:58-0500 Diastolic blood pressure 72 mm[Hg] Demetrius Cooper MD Work Phone: [facility] 06-22-2024 14:58-0500 Heart rate 50 /min Demetrius Cooper MD Work Phone: [facility] 06-22-2024 14:58-0500 Respiratory rate 20 /min Demetrius Cooper MD Work Phone: [facility] 06-22-2024 14:58-0500 SaO2% (BldA) [Mass fraction] 95 % Demetrius Cooper MD Work Phone: [facility] 06-22-2024 14:58-0500 Systolic blood pressure 149 mm[Hg] Demetrius Cooper MD Work Phone: [facility] 06-20-2024 14:38-0500 Body height 160 cm Matteo Bell MD Work Phone: [facility] 06-20-2024 14:38-0500 Body mass index (BMI) [Ratio] 30.11 kg/m2 Matteo Bell MD Work Phone: [facility] 06-20-2024 14:38-0500 Body weight 77.11 kg Matteo Bell MD Work Phone: [facility] 06-20-2024 14:38-0500 Diastolic blood pressure 74 mm[Hg] Matteo Bell MD Work Phone: [facility] 06-20-2024 14:38-0500 Systolic blood pressure 120 mm[Hg] Matteo Bell MD Work Phone: [facility] 06-14-2024 10:45-0500 Body height 167.64 cm Demetrius Cooper MD Work Phone: [facility] 06-14-2024 10:45-0500 Body mass index (BMI) [Ratio] 27.6 kg/m2 Demetrius Cooper MD Work Phone: [facility] 06-14-2024 10:45-0500 Body temperature 97.6 [degF] Demetrius Cooper MD Work Phone: [facility] 01-29-2025 10:45-0500 Body weight 77.56 kg Demetrius Cooper MD Work Phone: [facility] 06-14-2024 10:45-0500 Diastolic blood pressure 67 mm[Hg] Demetrius Cooper MD Work Phone: [facility] 06-14-2024 10:45-0500 Heart rate 69 /min Demetrius Cooper MD Work Phone: [facility] 06-14-2024 10:45-0500 Respiratory rate 20 /min Demetrius Cooper MD Work Phone: [facility] 06-14-2024 10:45-0500 Systolic blood pressure 103 mm[Hg] Demetrius Cooper MD Work Phone: [facility] 06-14-2024 09:53-0500 Body height 167.64 cm Demetrius Cooper MD Work Phone: [facility] 06-14-2024 09:53-0500 Body mass index (BMI) [Ratio] 27.6 kg/m2 Demetrius Cooper MD Work Phone: [facility] 06-14-2024 09:53-0500 Body temperature 97.6 [degF] Demetrius Cooper MD Work Phone: [facility] 06-14-2024 09:53-0500 Body weight 77.56 kg Demetrius Cooper MD Work Phone: [facility] 06-14-2024 09:53-0500 Diastolic blood pressure 67 mm[Hg] Demetrius Cooper MD Work Phone: [facility] 06-14-2024 09:53-0500 Heart rate 69 /min Demetrius Cooper MD Work Phone: [facility] 06-14-2024 09:53-0500 Respiratory rate 20 /min Demetrius Cooper MD Work Phone: [facility] 06-14-2024 09:53-0500 SaO2% (BldA) [Mass fraction] 96 % Demetrius Cooper MD Work Phone: [facility] 06-14-2024 09:53-0500 Systolic blood pressure 103 mm[Hg] Demetrius Cooper MD Work Phone: [facility] 06-05-2024 14:13-0500 Diastolic blood pressure 96 mm[Hg] [address] 06-05-2024 14:13-0500 Heart rate 65 /min [address] 06-05-2024 14:13-0500 Respiratory rate 16 /min [address] 06-05-2024 14:13-0500 SaO2% (BldA) [Mass fraction] 96 % [address] 06-05-2024 14:13-0500 Systolic blood pressure 147 mm[Hg] [address] 06-05-2024 12:22-0500 Body temperature 97.2 [degF] [address] 05-30-2024 11:16-0500 Body height 162.6 cm Mary Schneider MD Work Phone: [facility] 05-30-2024 11:16-0500 Body mass index (BMI) [Ratio] 28.89 kg/m2 Mary Schneider MD Work Phone: [facility] 05-30-2024 11:16-0500 Body temperature 98.2 [degF] Mary Schneider MD Work Phone: [facility] 05-30-2024 11:16-0500 Body weight 76.34 kg Mary Schneider MD Work Phone: [facility] 05-11-2024 10:00-0500 Body temperature 97.7 [degF] Mary Schneider MD Work Phone: [facility] 05-11-2024 10:00-0500 Diastolic blood pressure 72 mm[Hg] Mary Schneider MD Work Phone: [facility] 05-11-2024 10:00-0500 Heart rate 61 /min Mary Schneider MD Work Phone: [facility] 05-11-2024 10:00-0500 Respiratory rate 14 /min Mary Schneider MD Work Phone: [facility] 05-11-2024 10:00-0500 SaO2% (BldA) [Mass fraction] 95 % Mary Schneider MD Work Phone: [facility] 05-11-2024 10:00-0500 Systolic blood pressure 140 mm[Hg] Mary Schneider MD Work Phone: [facility] 05-11-2024 06:08-0500 Body height 162.6 cm Mary Schneider MD Work Phone: [facility] 05-11-2024 06:08-0500 Body mass index (BMI) [Ratio] 29.52 kg/m2 Mary Schneider MD Work Phone: [facility] 05-11-2024 06:08-0500 Body weight 78 kg Mary Schneider MD Work Phone: [facility] 04-07-2024 10:40-0500 Body height 162.6 cm Mary Schneider MD Work Phone: [facility] 04-07-2024 10:40-0500 Body mass index (BMI) [Ratio] 29.18 kg/m2 Mary Schneider MD Work Phone: [facility] 04-07-2024 10:40-0500 Body weight 77.11 kg Mary Schneider MD Work Phone: [facility] 03-29-2024 10:06-0500 Body height 162.6 cm Luc Ham MD Work Phone: [facility] 03-29-2024 10:06-0500 Body mass index (BMI) [Ratio] 29.7 kg/m2 Luc Ham MD Work Phone: [facility] 03-29-2024 10:06-0500 Body weight 78.47 kg Luc Ham MD Work Phone: [facility] 03-29-2024 10:06-0500 Diastolic blood pressure 70 mm[Hg] Luc Ham MD Work Phone: [facility] 03-29-2024 10:06-0500 Systolic blood pressure 138 mm[Hg] Luc Ham MD Work Phone: [facility] 03-23-2024 14:06-0500 Blood Pressure Location Wiley Sarmini [facility] 03-23-2024 14:06-0500 Diastolic blood pressure 74 mm[Hg] Wiley Sarmini [facility] 03-23-2024 14:06-0500 Heart rate 71 /min Wiley Sarmini [facility] 03-23-2024 14:06-0500 Respiratory rate 16 /min Wiley Sarmini [facility] 03-23-2024 14:06-0500 Systolic blood pressure 117 mm[Hg] Wiley Sarmini [facility] 03-08-2024 09:25-0400 Body height 162.6 cm Luc Ham MD Work Phone: [facility] 03-08-2024 09:25-0400 Body mass index (BMI) [Ratio] 29.87 kg/m2 Luc Ham MD Work Phone: [facility] 03-08-2024 09:25-0400 Body weight 78.93 kg Luc Ham MD Work Phone: [facility] 03-08-2024 09:25-0400 Diastolic blood pressure 66 mm[Hg] Luc Ham MD Work Phone: [facility] 03-08-2024 09:25-0400 Systolic blood pressure 124 mm[Hg] Luc Ham MD Work Phone: [facility] 02-16-2024 14:19-0400 Body height 162.6 cm Luc Ham MD Work Phone: [facility] 02-16-2024 14:19-0400 Body mass index (BMI) [Ratio] 29.87 kg/m2 Luc Ham MD Work Phone: [facility] 02-16-2024 14:19-0400 Body weight 78.93 kg Luc Ham MD Work Phone: [facility] 02-16-2024 14:19-0400 Diastolic blood pressure 74 mm[Hg] Luc Ham MD Work Phone: [facility] 02-16-2024 14:19-0400 Systolic blood pressure 129 mm[Hg] Luc Ham MD Work Phone: [facility] 02-16-2024 08:59-0400 Body height 162.6 cm Missy Lowe PA Work Phone: [facility] 02-16-2024 08:59-0400 Body mass index (BMI) [Ratio] 29.7 kg/m2 Missy Lowe PA Work Phone: [facility] 02-16-2024 08:59-0400 Body weight 78.47 kg Missy Lowe PA Work Phone: [facility] 02-16-2024 08:59-0400 Diastolic blood pressure 78 mm[Hg] Missy Lowe PA Work Phone: [facility] 02-16-2024 08:59-0400 Systolic blood pressure 118 mm[Hg] Missy Lowe PA Work Phone: [facility] 02-01-2024 13:07-0400 Body height 162.6 cm Luc Ham MD Work Phone: [facility] 02-01-2024 13:07-0400 Body mass index (BMI) [Ratio] 29.52 kg/m2 Luc Ham MD Work Phone: [facility] 02-01-2024 13:07-0400 Body weight 78.02 kg Luc Ham MD Work Phone: [facility] 02-01-2024 13:07-0400 Diastolic blood pressure 71 mm[Hg] Luc Ham MD Work Phone: [facility] 02-01-2024 13:07-0400 Systolic blood pressure 101 mm[Hg] Luc Ham MD Work Phone: [facility] 10-21-2023 14:32-0400 Blood Pressure Location Wiley Sarmini [facility] 10-21-2023 14:32-0400 Diastolic blood pressure 64 mm[Hg] Wiley Sarmini [facility] 10-21-2023 14:32-0400 Heart rate 73 /min Wiley Sarmini [facility] 10-21-2023 14:32-0400 Respiratory rate 18 /min Wiley Sarmini [facility] 10-21-2023 14:32-0400 Systolic blood pressure 130 mm[Hg] Wiley Sarmini [facility] 09-17-2023 08:58-0400 Blood Pressure Location Anjali Ruby [facility] 09-17-2023 08:58-0400 Body temperature 97.34 [degF] Anjali Ruby [facility] 09-17-2023 08:58-0400 Diastolic blood pressure 66 mm[Hg] Anjali Ruby [facility] 09-17-2023 08:58-0400 Heart rate 66 /min Anjali Ruby [facility] 09-17-2023 08:58-0400 Systolic blood pressure 123 mm[Hg] Anjali Ruby [facility] 09-02-2023 13:28-0400 Body height 167.64 cm [facility] 09-02-2023 13:28-0400 Body mass index (BMI) [Ratio] 28 kg/m2 [facility] 09-02-2023 [id number] Body weight 78.69 kg [facility] 09-02-2023 13:28-0400 Diastolic blood pressure 61 mm[Hg] [facility] 09-02-2023 13:28-0400 Heart rate 67 /min [facility] 09-02-2023 13:28-0400 SaO2% (BldA) [Mass fraction] 95 % [facility] 09-02-2023 13:28-0400 Systolic blood pressure 113 mm[Hg] [facility] 07-27-2023 10:23-0400 Body height 167.64 cm [facility] 07-27-2023 10:23-0400 Body mass index (BMI) [Ratio] 27.5 kg/m2 [facility] 07-27-2023 10:23-0400 Body temperature 97.9 [degF] [facility] 07-27-2023 10:23-0400 Body weight 77.28 kg [facility] 07-27-2023 10:23-0400 Diastolic blood pressure 66 mm[Hg] [facility] 07-27-2023 10:23-0400 Heart rate 86 /min [facility] 07-27-2023 10:23-0400 Respiratory rate 18 /min [facility] 07-27-2023 10:23-0400 SaO2% (BldA) [Mass fraction] 97 % [facility] 07-27-2023 10:23-0400 Systolic blood pressure 121 mm[Hg] [facility] 05-31-2023 13:30-0500 Body height 167.64 cm Gisele Brunson Other [employer] Other 05-31-2023 13:30-0500 Body mass index (BMI) [Ratio] 27.6 kg/m2 Gisele Brunson Other [employer] Other 05-31-2023 13:30-0500 Body weight 77.57 kg Gisele Brunson Other [employer] Other 05-31-2023 13:30-0500 Diastolic blood pressure 55 mm[Hg] Gisele Brunson Other [employer] Other 05-31-2023 13:30-0500 SaO2% (BldA) [Mass fraction] 94 % Gisele Brunson Other [employer] Other 05-31-2023 13:30-0500 Systolic blood pressure 104 mm[Hg] Gisele Brunson Other [employer] Other 05-25-2023 12:21-0500 Blood Pressure Location Anjalijane StaffordFlori [facility] 05-25-2023 12:21-0500 Diastolic blood pressure 65 mm[Hg] Anjali Staffordmetz [facility] 05-25-2023 12:21-0500 Heart rate 88 /min Anjalijane StaffordFlori [facility] 05-25-2023 12:21-0500 Respiratory rate 16 /min Anjali Flori [facility] 05-25-2023 12:21-0500 Systolic blood pressure 113 mm[Hg] Anjali Staffordmetz [facility] 04-01-2023 13:15-0500 Body temperature 97.11 [degF] Vaishali Pringle MD Work Phone: [facility] 04-01-2023 13:15-0500 Body weight 75.75 kg Vaishali Pringle MD Work Phone: [facility] 04-01-2023 13:15-0500 Diastolic blood pressure 66 mm[Hg] Vaishali Pringle MD Work Phone: [facility] 04-01-2023 13:15-0500 Heart rate 70 /min Vaishali Pringle MD Work Phone: [facility] 04-01-2023 13:15-0500 SaO2% (BldA) [Mass fraction] 97 % Vaishali Pringle MD Work Phone: [facility] 04-01-2023 13:15-0500 Systolic blood pressure 109 mm[Hg] Vaishali Pringle MD Work Phone: [facility] 03-10-2023 08:53-0400 Blood Pressure Location Anjali Flori [facility] 03-10-2023 08:53-0400 Body temperature 97.16 [degF] Anjali Ruby [facility] 03-10-2023 08:53-0400 Diastolic blood pressure 72 mm[Hg] Anjali Staffordmetz [facility] 03-10-2023 08:53-0400 Heart rate 63 /min Anjali Staffordmetz [facility] 03-10-2023 08:53-0400 Systolic blood pressure 117 mm[Hg] Anjali Staffordmetz [facility] 02-25-2023 13:27-0400 Blood Pressure Location Anjali Staffordmetz [facility] 02-25-2023 13:27-0400 Body temperature 98.06 [degF] Anjali Ruby [facility] 02-25-2023 13:27-0400 Diastolic blood pressure 75 mm[Hg] Anjali Ruby [facility] 02-25-2023 13:27-0400 Heart rate 85 /min Anjali Ruby [facility] 02-25-2023 13:27-0400 Respiratory rate 16 /min Anjali Ruby [facility] 02-25-2023 13:27-0400 Systolic blood pressure 122 mm[Hg] Anjali Ruby [facility] 01-29-2023 10:15-0400 Body height 167.64 cm Gisele Brunson Other [employer] Other 01-29-2023 10:15-0400 Body mass index (BMI) [Ratio] 28.24 kg/m2 Gisele Brunson Other [employer] Other 01-29-2023 10:15-0400 Body weight 79.38 kg Gisele Brunson Other [employer] Other 01-29-2023 10:15-0400 Diastolic blood pressure 75 mm[Hg] Gisele Brunson Other [employer] Other 01-29-2023 10:15-0400 SaO2% (BldA) [Mass fraction] 95 % Gisele Brunson Other [employer] Other 01-29-2023 10:15-0400 Systolic blood pressure 118 mm[Hg] Gisele Brunson Other [employer] Other 01-12-2023 09:22-0400 Blood Pressure Location Anjali Ruby [facility] 01-12-2023 09:22-0400 Body temperature 96.98 [degF] Anjali Ruby [facility] 01-12-2023 09:22-0400 Diastolic blood pressure 68 mm[Hg] Anjali Ruby [facility] 01-12-2023 09:22-0400 Heart rate 69 /min Anjali Rbuy [facility] 01-12-2023 09:22-0400 Systolic blood pressure 109 mm[Hg] Anjali Ruby [facility] 10-13-2022 09:45-0400 Body height 167.64 cm Gisele Brunson Other [employer] Other 10-13-2022 09:45-0400 Body mass index (BMI) [Ratio] 27.92 kg/m2 Gisele Brunson Other [employer] Other 10-13-2022 09:45-0400 Body weight 78.47 kg Gisele Brunson Other [employer] Other 10-13-2022 09:45-0400 Diastolic blood pressure 70 mm[Hg] Gisele Brunson Other [employer] Other 10-13-2022 09:45-0400 SaO2% (BldA) [Mass fraction] 95 % Gisele Brunson Other [employer] Other 10-13-2022 09:45-0400 Systolic blood pressure 116 mm[Hg] Gisele Brunson Other [employer] Other 09-22-2022 18:14-0400 Body temperature 99.86 [degF] Gordy Sánchez [facility] 09-22-2022 16:28-0400 Body temperature 101.3 [degF] Gordy Sánchez [facility] 09-22-2022 16:28-0400 Diastolic blood pressure 61 mm[Hg] Gordy Sánchez [facility] 09-22-2022 16:28-0400 Heart rate 79 /min Gordy Sánchez [facility] 09-22-2022 16:28-0400 Respiratory rate 17 /min Gordy Sánchez [facility] 09-22-2022 16:28-0400 SaO2% (BldA) [Mass fraction] 93 % Gordy Sánchez [facility] 09-22-2022 16:28-0400 Systolic blood pressure 111 mm[Hg] Gordy Sánchez [facility] 09-22-2022 14:10-0400 Body height 167.64 cm Griselda Murphymond Other [employer] Other 09-22-2022 14:10-0400 Body mass index (BMI) [Ratio] 29.7 kg/m2 Griselda Aditi Other [employer] Other 09-22-2022 14:10-0400 Body temperature 100 [degF] Griselda Aditi Other [employer] Other 09-22-2022 14:10-0400 Body weight 83.46 kg Griselda Aditi Other [employer] Other 09-22-2022 14:10-0400 Respiratory rate 18 /min Griselda Pennington Other [employer] Other 09-22-2022 14:10-0400 SaO2% (BldA) [Mass fraction] 93 % Griselda Pennington Other [employer] Other 07-29-2022 10:15-0400 Body height 167.64 cm Erwin Salazar Other [employer] Other 07-29-2022 10:15-0400 Body mass index (BMI) [Ratio] 30.02 kg/m2 Erwin Salazar Other [employer] Other 07-29-2022 10:15-0400 Body weight 84.37 kg Erwin Salazar Other [employer] Other 07-29-2022 10:15-0400 Diastolic blood pressure 65 mm[Hg] Erwin Salazar Other [employer] Other 07-29-2022 10:15-0400 SaO2% (BldA) [Mass fraction] 94 % Erwin Salazar Other [employer] Other 07-29-2022 10:15-0400 Systolic blood pressure 102 mm[Hg] Erwin Salazar Other [employer] Other 11-29-2021 10:25-0400 Body height 167.64 cm Leti Garcia Other [employer] Other 11-29-2021 10:25-0400 Body temperature 96.9 [degF] Leti Garcia Other [employer] Other 11-29-2021 10:25-0400 Respiratory rate 18 /min Leti Garcia Other [employer] [facility] [employer] Other 11-29-2021 10:25-0400 SaO2% (BldA) [Mass fraction] 93 % Leti Garcia Other [employer] Other Encounters Encounter Date Encounter Type Care Provider Facility Start: 02-09-2025 ambulatory CORIN SCHMIDT [facility] Start: 02-06-2025 End: 02-06-2025 ambulatory [facility] Start: 01-18-2025 End: 01-18-2025 Office outpatient visit 15 minutes Veena H Itzkowitz DO Work Phone: [facility] Comment on above: Esophageal dysphagia (Primary Dx) Start: 01-18-2025 End: 01-18-2025 ambulatory VEENA H ITZKOWITZ Not Available Start: 01-08-2025 End: 01-08-2025 Office outpatient visit 15 minutes Veena H Itzkowitz DO Work Phone: [facility] [employer] Comment on above: Esophageal dysphagia (Primary Dx); Carcinoma of oropharynx (HCC) Start: 01-08-2025 End: 01-08-2025 ambulatory VEENA H ITZKOWITZ Not Available Start: 12-26-2024 Registered Recurring d Ramin Faustin MD -[facility] Acute Work Phone: Start: 12-26-2024 End: 12-26-2024 ambulatory Demetrius Cooper MD Work Phone: [facility] Work Phone: Start: 12-26-2024 End: 12-26-2024 Patient encounter procedure Becky Ramos Shimonrey RAYSHAWN -[facility] Ambulatory Work Phone: Start: 12-13-2024 ambulatory [facility] Start: 12-11-2024 End: 12-11-2024 Office outpatient visit 15 minutes Mary Schneider MD Work Phone: [facility] Comment on above: 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); G tube feedings (Multi); At risk for malnutrition Start: 12-11-2024 End: 12-11-2024 ambulatory MARY SCHNEIDER [facility] Start: 12-05-2024 End: 12-05-2024 ambulatory STACEY [facility] Start: 11-27-2024 End: 11-27-2024 ambulatory Demetrius Cooper Facility:[facility] Start: 11-23-2024 Registered Recurring Talib Faustin MD -[facility] Acute Work Phone: Start: 11-23-2024 End: 11-23-2024 ambulatory Demetrius Cooper MD Work Phone: [facility] Work Phone: Start: 11-23-2024 End: 11-23-2024 Patient encounter procedure Talib Faustin MD -[facility] Ambulatory Work Phone: Start: 11-23-2024 End: 11-23-2024 Patient encounter procedure Debora Campbell [facility] Start: 11-23-2024 End: 11-23-2024 ambulatory Demetrius Cooper MD Work Phone: [facility] Work Phone: Start: 11-23-2024 Non-patient / Non-visit Robina Campbell [facility] Palliative Work Phone: Start: 11-21-2024 End: 11-21-2024 ambulatory Demetrius Cooper Facility:[facility] Start: 2024 End: 2024 ambulatory MD Demetrius Cooper Facility:[facility] Start: 10-12-2024 End: 10-12-2024 ambulatory MD Demetrius Cooper Facility:[facility] Start: 10-11-2024 End: 10-11-2024 Postop follow up visit related to original px Veena Adkins DO Work Phone: [facility] Comment on above: Esophageal dysphagia (Primary Dx); Carcinoma of oropharynx (CMS/HCC) Start: 10-11-2024 End: 10-11-2024 ambulatory VEENA ADKINS Not Available Start: 10-03-2024 End: 10-03-2024 External Result Encounter Veenarangel Adkins DO Work Phone: [facility] External Department Unsolicited Start: 10-03-2024 End: 10-03-2024 External Result Encounter Veena Adkins DO Work Phone: [facility] External Department Unsolicited Start: 10-03-2024 End: 10-03-2024 Admission to same day surgery center Veena Adkins DO -[facility] [place] Start: 10-03-2024 End: 10-03-2024 ambulatory Demetrius Cooper Facility:[facility] Start: 09-28-2024 End: 09-28-2024 ambulatory MD Demetrius Cooper Facility:[facility] Nico[facility] Start: 09-28-2024 End: 09-28-2024 Bamboo flowsheet Missy Westfall PA Work Phone: [facility] Start: 09-28-2024 [...] Polyneuropathy Start: 09-28-2024 End: 09-28-2024 ambulatory MISSY LOWElizabeth Not Available Start: 09-27-2024 End: 09-27-2024 Office outpatient new 45 minutes Veena H Itzkowitz DO Work Phone: [facility] Comment on above: Esophageal dysphagia (Primary Dx) Start: 09-27-2024 End: 09-27-2024 ambulatory VEENA H ITZKOWITZ Not Available Start: 09-26-2024 End: 09-26-2024 ambulatory Demetrius Cooper MD Work Phone: [facility] Work Phone: Start: 09-26-2024 End: 09-26-2024 Patient encounter procedure Demetrius Cooper MD Work Phone: [facility] Work Phone: Start: 09-25-2024 Registered Recurring Demetrius gardiner MD 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 Work Phone: Start: 09-07-2024 End: 09-07-2024 Patient encounter procedure Demetrius Cooper MD Work Phone: [facility] Work Phone: Start: 09-04-2024 End: 09-04-2024 ambulatory [facility] Start: 08-30-2024 End: 08-30-2024 Lab Drop off Demetrius Cooper [facility] Start: 08-30-2024 End: 08-30-2024 ambulatory Demetrius Cooper [facility] Start: 08-24-2024 End: 08-24-2024 ambulatory Demetrius Cooper Facility:[facility] Start: 08-23-2024 End: 08-23-2024 Patient encounter procedure Demetrius Cooper MD Work Phone: [facility] Work Phone: Start: 08-22-2024 End: 09-25-2024 ambulatory Demetrius Cooper Facility:CD:[id number] [phone] Start: 08-21-2024 Non-patient / Non-visit Demetrius Cooper MD Work Phone: [facility] Work Phone: Start: 08-21-2024 Non-patient / Non-visit Demetrius Cooper MD Work Phone: [facility] Health Infect Dis Work Phone: Start: 08-21-2024 ambulatory Demetrius Cooper Facility: [facility] Start: 08-20-2024 End: 08-21-2024 Evaluation and management of inpatient Demetrius Cooper MD Work Phone: [facility] [place] [facility] Work Phone: Start: 08-18-2024 Registered Recurring Demetrius gardiner MD Work Phone: [facility] Work Phone: Start: 08-17-2024 Non-patient / Non-visit Demetrius Cooper MD Work Phone: [facility] Work Phone: Start: 08-17-2024 ambulatory Dennis Cline Isaac Melvin lity:[facility] Start: 08-17-2024 Registered Recurring Demetrius gardiner MD Work Phone: [facility] Start: 08-16-2024 Non-patient / Non-visit Demetrius Cooper MD Work Phone: [facility] Palliative Work Phone: Start: 08-16-2024 Registered Recurring Demetrius gardiner MD Work Phone: [facility] Acute Work Phone: Start: 08-16-2024 End: 08-16-2024 Patient encounter procedure Demetrius Cooper MD Work Phone: [facility] Start: 08-16-2024 End: 08-16-2024 ambulatory Demetrius Cooper MD Work Phone: [facility] Work Phone: Start: 08-14-2024 Non-patient / Non-visit Demetrius Cooper MD Work Phone: [facility] Start: 08-10-2024 Non-patient / Non-visit Demetrius Cooper MD Work Phone: [facility] Work Phone: Start: 08-10-2024 Registered Recurring Demetrius gardiner MD Work Phone: [facility] Start: 08-09-2024 End: 08-09-2024 Patient encounter procedure Demetrius Cooper MD Work Phone: [facility] Work Phone: Start: 08-09-2024 Non-patient / Non-visit Demetrius Cooper MD Work Phone: [facility] Physician [facility] Palliative Work Phone: Start: 08-09-2024 End: 08-09-2024 Patient encounter procedure [facility] Start: 08-09-2024 End: 08-09-2024 ambulatory Demetrius Cooper MD Work Phone: [facility] Work Phone: Start: 08-07-2024 Non-patient / Non-visit Demetrius Cooper MD Work Phone: [facility] Work Phone: Start: 08-03-2024 Registered Recurring Demetrius gardiner MD [facility] Start: 08-03-2024 Non-patient / Non-visit Demetrius Cooper MD Work Phone: [facility] Work Phone: Start: 08-02-2024 Non-patient / Non-visit [facility]etrius Cooper [facility] Start: 08-02-2024 End: 08-02-2024 Patient encounter procedure [facility]ri[facility] Cooper [facility] Start: 08-02-2024 End: 08-02-2024 ambulatory Demetrius Cooper MD Work Phone: [facility] Work Phone: Start: 07-31-2024 Non-patient / Non-visit Demetrius Cooper MD Work Phone: [facility] Work Phone: Start: 07-27-2024 Registered Recurring Demetrius gardiner MD [facility] Start: 07-27-2024 Non-patient / Non-visit Demetrius Cooper MD Work Phone: [facility] Work Phone: Start: 07-26-2024 End: 07-26-2024 ambulatory MATTEO JAMESPolina Bell Not Available Start: 07-26-2024 Registered Recurring Demetrius gardiner MD Work Phone: [facility] Work Phone: Start: 07-26-2024 Non-patient / Non-visit Demetrius Cooper MD Work Phone: [facility] Palliative Work Phone: Start: 07-26-2024 End: 07-26-2024 Departed Referred Demetrius Cooper MD Work Phone: [facility] Start: 07-26-2024 End: 07-26-2024 ambulatory Demetrius Cooper MD Work Phone: [facility] Work Phone: Start: 07-26-2024 End: 07-26-2024 Patient encounter procedure Demetrius Cooper MD Work Phone: [facility] Work Phone: Start: 07-26-2024 Non-patient / Non-visit Demetrius Cooper MD Work Phone: [facility] Start: 07-24-2024 Non-patient / Non-visit Demetrius Cooper MD Work Phone: [facility] Work Phone: Start: 07-21-2024 ambulatory Mary Ordoñez y:[facility] Start: 07-20-2024 Registered Recurring Demetrius gardiner MD Work Phone[facility] Start: 07-20-2024 Non-patient / Non-visit Demetrius Cooper MD Work Phone: [facility] Work Phone: Start: 07-20-2024 End: 07-20-2024 Patient encounter procedure Demetrius Cooper MD Work Phone: [facility] Work Phone: Start: 07-19-2024 End: 07-19-2024 ambulatory [facility] Start: 07-19-2024 Non-patient / Non-visit Demetrius Cooper MD [facility] Start: 07-19-2024 End: 07-19-2024 Departed Referred Demetrius Cooper MD Work Phone: [facility] Start: 07-19-2024 End: 07-19-2024 Patient encounter procedure Demetrius Cooper MD Work Phone: [facility] Start: 07-19-2024 End: 07-19-2024 ambulatory Debora Wild Facility:[facility] Start: 07-17-2024 End: 07-17-2024 External Result Encounter Matteo Melo MD Work Phone: [facility] External Department Unsolicited Start: 07-17-2024 End: 07-17-2024 External Result Encounter Matteo Bell MD Work Phone: [facility] External Department Unsolicited Start: 07-17-2024 Registered Recurring Demetrius gardiner MD Work Phone[facility] Work Phone: Start: 07-17-2024 End: 07-17-2024 Admission to same day surgery center Demetrius Cooper MD Work [facility] [place] Start: 07-17-2024 End: 07-17-2024 ambulatory Demetrius Cooper MD Work Phone: [facility] Work Phone: Start: 07-17-2024 Non-patient / Non-visit Demetrius Cooper MD Work Phone: [facility] Work Phone: Start: 07-13-2024 Non-patient / Non-visit Demetrius Cooper MD Work Phone: [facility] Work Phone: Start: 07-12-2024 Non-patient / Non-visit Demetrius Cooper MD Work Phone: [facility] Start: 07-12-2024 Registered Recurring Demetrius gardiner MD Work Phone: [facility] Acute Work Phone: Start: 07-12-2024 Non-patient / Non-visit Demetrius Cooper MD Work Phone: [facility] Pall[facility] Work Phone: Start: 07-12-2024 End: 07-12-2024 Patient encounter procedure Demetrius Cooper MD Work Phone: [facility] Work Phone: Start: 07-12-2024 End: 07-12-2024 ambulatory Demetrius Cooper MD Work Phone: [facility] Work Phone: Start: 07-10-2024 Non-patient / Non-visit Demetrius Cooper MD Work Phone: [facility] Work Phone: Start: 07-10-2024 End: 07-10-2024 ambulatory [facility] Start: 07-06-2024 Non-patient / Non-visit Demetrius Cooper MD Work Phone: [facility] Work Phone: Start: 07-06-2024 Non-patient / Non-visit Demetrius Cooper MD Work Phone: [facility] Start: 07-06-2024 Non-patient / Non-visit Demetrius Cooper MD Work Phone: [facility] Physician [facility] Palliative Work Phone: Start: 07-06-2024 End: 07-06-2024 Departed Referred Demetrius Cooper MD Work Phone: [facility] Start: 07-06-2024 End: 07-06-2024 Patient encounter procedure Demetrius Cooper MD Work Phone: [facility] Start: 07-06-2024 End: 07-06-2024 ambulatory Demetrius Cooper MD Work Phone: [facility] Work Phone: Start: 07-05-2024 Non-patient / Non-visit Demetrius Cooper MD [facility]: [facility] Work Phone: Start: 07-04-2024 End: 07-04-2024 ambulatory Demetrius Cooper Facility:[facility] Start: 07-03-2024 End: 07-03-2024 Lab Drop off Mhd Ramin Faustin [facility] Start: 07-03-2024 End: 07-03-2024 Departed Referred Demetrius Cooper MD [facility] [place] Start: 07-03-2024 End: 07-03-2024 Lab Drop off Demetrius Cooper [facility] Start: 07-03-2024 End: 07-03-2024 ambulatory Demetrius Cooper Facility:[facility] Start: 06-23-2024 End: 06-23-2024 Patient encounter procedure Isabel Romano AUD Work Phone: [facility] Comment on above: Sensorineural hearin g loss, bilateral (Primary Dx); Tinnitus, bilateral Start: 06-23-2024 End: 06-23-2024 ambulatory ISABEL ROMANO Not Available Start: 06-23-2024 End: 06-23-2024 Bamboo flowsheet Isabel Romano AUD Work Phone: [facility] Start: 06-23-2024 End: 06-23-2024 Bamboo flowsheet Isabel Romano AUD Work Phone: [facility] Start: 06-22-2024 End: 06-22-2024 Patient encounter procedure Demetrius Cooper MD Work Phone: [facility] Work Phone: Start: 06-22-2024 End: 06-22-2024 ambulatory Demetrius Cooper MD Work Phone: [facility] Work Phone: Start: 06-22-2024 Encounter for preprocedural laboratory examination Matteo Melo [facility] Start: 06-22-2024 End: 06-22-2024 External Result Encounter Matteo Melo MD Work Phone: [facility] External Department Unsolicited Start: 06-22-2024 End: 06-22-2024 External Result Encounter Matteo Bell MD Work Phone: [facility] External Department Unsolicited Start: 06-20-2024 End: 06-20-2024 Office outpatient new 45 minutes Matteo Melo MD Work Phone: [facility] Comment on above: Poor intravenous acc ess (Primary Dx); Carcinoma of oropharynx (CMS/HCC) Start: 06-20-2024 End: 06-20-2024 ambulatory MATTEO MELO V Not Available Start: 06-20-2024 Non-patient / Non-visit Demetrius Cooper MD Work Phone: [facility] Physician [facility] Ambulatory Work Phone: Start: 06-20-2024 Registered Recurring Demetrius gardiner MD Work Phone: [facility] Acute Work Phone: Start: 06-14-2024 End: 06-14-2024 ambulatory Demetrius Cooper MD Work Phone: [facility] Work Phone: Start: 06-14-2024 End: 06-14-2024 Patient encounter procedure Demetrius Cooper MD Work Phone: [facility] Work Phone: Start: 06-14-2024 Registered Recurring Demetrius gardiner MD Work Phone: [facility] Acute Work Phone: Start: 06-14-2024 End: 06-14-2024 ambulatory Demetrius Cooper MD Work Phone: [facility] Work Phone: Start: 06-14-2024 End: 06-14-2024 Patient encounter procedure Demetrius Cooper MD Work Phone: [facility] Work Phone: Start: 06-06-2024 End: 06-06-2024 ambulatory [facility] Start: 06-05-2024 End: 06-05-2024 Subsequent hospital visit by physician [facility] Ultrasound 3 [facility] Comment on above: Enlarged submental l ymph node Start: 06-05-2024 End: 06-05-2024 ambulatory MARY Tripp SCHNE[facility] Start: 05-30-2024 End: 05-30-2024 Postop follow up visit related to original px Mary Schneider MD Work Phone: [facility] Comment on above: 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); Metastasis to cervical lymph node Start: 05-30-2024 End: 05-30-2024 ambulatory MARY Tripp [facility] Start: 05-15-2024 End: 05-15-2024 Subsequent hospital visit by physician Rad External Film [facility] [employer] [employer] Comment on above: Arrived Start: 05-15-2024 End: 05-15-2024 ambulatory MARY Tripp [facility] Start: 05-11-2024 End: 05-11-2024 Subsequent hospital visit by physician Mary Schneider MD Work Phone: [facility] [place] Comment on above: 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); Acute postoperative pain Start: 04-26-2024 Evaluation and management of inpatient MARY Tripp [facility] Start: 04-25-2024 End: 04-25-2024 ambulatory [facility] Start: 04-18-2024 ambulatory MARY SCHNEIDER [facility] Start: 04-17-2024 End: 04-17-2024 Lab Drop off Demetrius Cooper [facility] Start: 04-17-2024 End: 04-17-2024 ambulatory Demetrius Cooper Facility:[facility] Start: 04-11-2024 End: 04-11-2024 ambulatory MARY Tripp [facility] Start: 04-11-2024 End: 04-11-2024 Encounter for other preprocedural examination MARY Tripp [facility] Start: 04-11-2024 End: 04-11-2024 Encounter for preprocedural cardiovascular examination MARY Tripp [facility] Start: 04-11-2024 End: 04-11-2024 Encounter for preprocedural respiratory examination MARY Tripp [facility] Start: 04-07-2024 End: 04-07-2024 Office outpatient new 45 minutes Mary Schneider MD Work Phone: [facility] Comment on above: 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); Oral lesion; Malignant neoplasm of floor of mouth Start: 04-07-2024 End: 04-07-2024 ambulatory MARY Tripp [facility] Start: 03-29-2024 End: 03-29-2024 Bamboo flowsheet Luc Ham MD Work Phone: [facility] Start: 03-29-2024 End: 03-29-2024 Bamboo flowsheet Luc [...] Start: 03-27-2024 End: 03-27-2024 ambulatory LUC HAM Facility:[facility] Start: 03-27-2024 End: 03-27-2024 Subsequent hospital visit by physician Arrival Time Radiology Work Phone: [facility]iology [facility] Start: 03-23-2024 End: 03-23-2024 ambulatory Wiley Taleddie Bautistapaty Facility:[facility] Start: 03-23-2024 End: 03-23-2024 Patient encounter procedure Wiley Talal Lilymini [facility] Start: 03-08-2024 End: 03-08-2024 [...] (CMS/HCC) Start: 03-08-2024 End: 03-08-2024 ambulatory LUC H TIMMIS Not Available Start: 03-06-2024 End: 03-06-2024 Telephone encounter Luc Ham MD Work Phone: [facility] LAUREN[facility] Start: 02-29-2024 End: 02-29-2024 ambulatory MD Demetrius Cooper Work Phone: [facility] Work Phone: Start: 02-29-2024 End: 02-29-2024 Departed Referred MD Demetrius Cooper Work Phone: [facility] Start: 02-16-2024 End: 02-16-2024 Office outpatient visit 25 minutes Luc Ham MD Work Phone: [facility] Comment on above: LAD (lymphadenopathy ) of right cervical region (Primary Dx) Start: 02-16-2024 End: 02-16-2024 ambulatory LUC H TIMMIS Not Available Start: 02-16-2024 End: 02-16-2024 Bamboo flowsheet Missy Lowe PA Work Phone: [facility] [employer] [address] [facility] [address] Start: 02-16-2024 End: 02-16-2024 Bamboo flowsheet Missy Lowe PA Work Phone: [facility] Start: 02-16-2024 End: 02-16-2024 Office outpatient visit 15 minutes Missy Lowe PA Work Phone: [facility] [employer] [facility] [address] Comment on above: Migraine without aur a and without status migrainosus, not intractable (CMS/HCC) (Primary Dx); Vertigo; Lumbar radiculopathy; Neck pain; Degenerative disc disease, cervical; Polyneuropathy Start: 02-16-2024 End: 02-16-2024 ambulatory MISSY LOWE Not Available Start: 02-14-2024 End: 02-14-2024 ambulatory LUC H TIMMIS Not Available Start: 02-02-2024 End: 02-18-2024 Telephone encounter Vaishali Pringle MD Work Phone: General Surgery Comment on above: MRI Appointment; Car e Coordinator - Other Start: 02-01-2024 End: 02-01-2024 Joie flowsheet Luc Ham MD Work Phone: [facility] Start: 02-01-2024 End: 02-01-2024 Deboraho flowsheet Luc Ham MD Work Phone: [facility] Start: 02-01-2024 End: 02-01-2024 Office outpatient new 30 minutes Luc Ham MD Work Phone: [facility] Comment on above: Parotid mass (Primar y Dx) Start: 02-01-2024 End: 02-01-2024 Refill Vaishali Pringle MD Work Phone: General Surgery Start: 01-10-2024 End: 01-10-2024 ambulatory Demetrius Cooper Facility:[facility] Start: 11-09-2023 End: 11-09-2023 Patient encounter procedure Wiley Talal Sarmini [facility] Start: 10-21-2023 End: 10-21-2023 Patient encounter procedure Wiley Talal Sarmini [facility] Start: 09-17-2023 End: 09-17-2023 Patient encounter procedure Anjali Ruby [facility] Start: 09-02-2023 End: 09-02-2023 ambulatory [facility] Work Phone: Start: 09-02-2023 End: 09-02-2023 Patient encounter procedure [facility] Physician [facility] Sleep Lab Work Phone: Start: 07-27-2023 End: 07-27-2023 Patient encounter procedure [facility] [place] Work Phone: Start: 05-31-2023 Office outpatient vi sit 25 minutes Gisele Brunson [facility] Start: 05-31-2023 End: 05-31-2023 ambulatory MD Demetrius Cooper Work Phone: [facility] Work Phone: Start: 05-31-2023 End: 05-31-2023 Patient encounter procedure MD Demetrius Cooper Work Phone: [facility]-Sleep Lab Work Phone: Start: 05-25-2023 End: 05-25-2023 Patient encounter procedure Anjali Ruby [facility] Start: 04-05-2023 Telephone encounter Vaishali orr MD Work Phone: General Surgery Comment on above: Received Outside Med ical Records Start: 04-01-2023 End: 04-01-2023 ambulatory VAISHALI PRINGLE Facility:[facility] Start: 04-01-2023 End: 04-01-2023 Patient encounter procedure Vaishali Pringle MD Work Phone: General Surgery Comment on above: IPMN (intraductal pa pillary mucinous neoplasm) (Primary Dx) Start: 03-10-2023 End: 03-10-2023 Patient encounter procedure Anjali Ruby [facility] Start: 03-10-2023 End: 03-10-2023 Patient encounter procedure Anjali Staffordmetz [facility] Start: 02-25-2023 End: 02-25-2023 Patient encounter procedure Anjali Ruby [facility] Start: 02-16-2023 End: 02-16-2023 ambulatory MD Demetrius Cooper Work Phone: [facility] Work Phone: Start: 02-16-2023 End: 02-16-2023 Patient encounter procedure MD Demetrius Cooper Work Phone: [facility] [place] Work Phone: Start: 01-29-2023 Office [facility] Start: 01-29-2023 End: 01-29-2023 ambulatory MD Demetrius Cooper Work Phone: [facility] Work Phone: Start: 01-29-2023 End: 01-29-2023 Patient encounter procedure MD Demetrius Cooper Work Phone: [facility]-Sleep Lab Work Phone: Start: 01-27-2023 ambulatory Facility:[id number] Start: 01-27-2023 End: 01-27-2023 ambulatory MD Demetrius Cooper Work Phone: [facility] Work Phone: Start: 01-27-2023 End: 01-27-2023 Patient encounter procedure MD Demetrius Cooper Work Phone: [facility]-Pacemaker Check Start: 01-12-2023 End: 01-12-2023 Patient encounter procedure Anjali Ruby [facility] Start: 12-17-2022 End: 12-17-2022 Patient encounter procedure Anjali Ruby [facility] Start: 12-09-2022 End: 12-09-2022 ambulatory MD Demetrius Cooper Work Phone: [facility] Work Phone: Start: 12-09-2022 End: 12-09-2022 Patient encounter procedure MD Demetrius Cooper Work Phone: [facility]-Sleep Lab Work Phone: Start: 11-23-2022 End: 11-23-2022 Lab Drop off Demetrius Cooper [facility] Start: 10-13-2022 Office outpatient vi sit 15 minutes Gisele [facility] Start: 10-13-2022 End: 10-13-2022 ambulatory MD Mg London Work Phone: [facility] Work Phone: Start: 10-13-2022 End: 10-13-2022 Patient encounter procedure MD Mg London Work Phone: [facility]-Sleep Lab Work Phone: Start: 09-29-2022 End: 09-29-[address] EDY CARNEY Facility:H1 Start: 09-24-2022 End: 09-25-[address] MG LONDON Facility:H1 Start: 09-22-2022 End: 09-22-2022 Emergency department patient visit Gordy Sánchez [facility] Start: 09-22-2022 Office outpatient vi sit 15 minutes Griselda Pennington [facility] [place] Start: 09-22-2022 End: 09-22-2022 ambulatory NARENDRANATH LAKSHMIPATHY . [employer] Other Start: 08-25-2022 End: 08-26-2022 ambulatory NARENDRANATH LAKSHMIPATHY . Facility:H1 Start: 08-12-2022 ambulatory Facility:[id number] Start: 08-12-2022 End: 08-12-2022 ambulatory MD Mg London Work Phone: [facility] Work Phone: Start: 08-12-2022 End: 08-12-2022 Patient encounter procedure MD Mg London Work Phone: [facility] [place] Work Phone: Start: 08-11-2022 End: 08-11-2022 ambulatory EVERTMARY LEARYJOHNADRIANAKATERYNAY . Facility:H1 Start: 07-29-2022 Office outpatient ne w [address] [facility] Start: 07-29-2022 End: 07-29-2022 ambulatory MD Mg London Work Phone: [facility] Work Phone: Start: 07-29-2022 End: 07-29-2022 Patient encounter procedure MD Mg [place] Work Phone: [facility]-Sleep Lab Work Phone: Start: 07-23-2022 End: 07-24-2022 ambulatory SONNY LAZO . Facility:H1 Start: 07-22-2022 End: 07-23-2022 [facility]ulatory [facility] Start: 07-21-2022 ambulatory Facility:[id number] Start: 07-21-2022 End: 07-21-2022 ambulatory MD Mg [place] Work Phone: [facility] Work Phone: Start: 07-21-2022 End: 07-21-2022 Patient encounter procedure MD Mg London Work Phone: [facility]-Pacemaker Check Start: 06-18-2022 End: 07-10-2022 ambulatory SONA COPPOLA Facility:H1 Start: 06-16-2022 End: 06-17-2022 ambulatory SONA COPPOLA Facility:H1 Start: 06-11-2022 End: 06-12-2022 ambulatory [facility] Facility[facility] Start: 05-26-2022 End: 05-26-2022 Patient encounter procedure Dequan GALICIA [facility] Start: 04-16-2022 End: 04-17-[address] ERWIN FALCON Facility:H1 Start: 03-19-[address] AMANDA CLANCY . Faci lity:H1 Start: 03-12-2022 End: 03-13-2022 ambulatory ALANNA Araiza [facility] Facility:H1 Start: 03-10-2022 End: 03-11-2022 ambulatory DIEGO COYNE Facility:H1 Start: 03-06-2022 End: 03-07-[address] DOCTOR GOFF Facility:H1 Start: 12-25-2021 End: 12-26-2021 ambulatory SONNY LAZO . Facility:H1 Start: 12-01-2021 End: 12-02-2021 ambulatory ALANNA Rick [facility] Facility:H1 Start: 11-29-2021 End: 11-29-2021 ambulatory Leti Garcia Other [employer] Other Start: 11-29-2021 Office outpatient vi sit 15 minutes Leti Garcia [facility] [place] Start: 11-13-2021 End: 12-19-2021 ambulatory OSMAR JARQUIN Facility:H1 Start: 09-04-2020 End: 09-04-2020 Patient encounter procedure Param Cosme Work Phone: -[facility] [place] Start: 08-15-2020 End: 08-15-2020 Patient encounter procedure Param Cosme -Pacemaker Check Start: 08-30-2019 End: 08-31-2019 Patient encounter procedure [facility] Facility:[facility] Procedures Date Procedure Procedure Detail Performing [...] Schneider MD Work Phone: Start: 05-11-2024 VERAB/VERIFY HPILIP Munoz MD Work Phone: Start: 05-11-2024 Blood typing serologic rh (d) Gbao Martin MD Work Phone: Start: 03-27-2024 Gluc [...] on above: Performed By: #### CBC #### [facility] [address] [place] [address] Dr. Ramsey Sanchez Start: 05-20-2020 Esophagogastroduodenoscopy Dequan [...] procedure 06/08/2025 1:30 PM EST Office Visit [facility] [address] [facility] [address] [place] [address] [place] [address] [place], [place] [id number] [facility] Start: 04-11-2025 Creatinine measurement Creatinine Le kortney [facility] Start: 04-11-2025 Potassium measurement Potassium Leve l [facility] Start: 04-03-2025 End: 04-03-2025 Patient encounter procedure 04/03/2025 11:00 AM EST Office Visit [facility] [address] [place] [phone] Missy Villarreal NP [address] [place] [address] [facility] NICOLETT[facility] Start: 01-15-2025 Influenza vaccination Influenza Vacc ine (#1) [facility] Start: 12-26-2024 Patient referral [facility] Work Phone: Start: 12-11-2024 End: 12-11-2024 Patient encounter procedure 12/11/2024 10:00 AM EDT Office Visit [facility] [address] [place] [address] [place] [address] [place] [address] [facility] Start: 10-11-2024 End: 10-11-2024 Patient encounter procedure 10/11/2024 2:15 PM EDT Office Visit [facility] [address] [place] [phone] Veena Adkins DO [address] [place] [address] [facility] [address] [facility] Start: 10-03-2024 [facility] Start: 09-28-2024 End: 09-28-2024 Patient encounter procedure LISANDRO TEMPLETON Comment on above: Arrived Start: 08-29-2024 End: 08-29-2024 Patient encounter procedure VALENTÍN [facility] [address] Start: 08-21-2024 [facility] Start: 08-21-2024 Administration of prophylactic treatment [facility] Start: 08-21-2024 [facility] Start: 08-21-2024 [facility] Start: 08-20-2024 Referral to infectio us diseases physician [facility] Start: 08-20-2024 [facility] Start: 08-20-2024 CT [facility] Start: 08-20-2024 CT of chest without contrast CT chest wo con [facility] Start: 08-20-2024 Hospital admission [facility] Start: 08-20-2024 [facility] Start: 08-20-2024 Bacteria identified in Blood by Culture Blood Culture [facility] Start: 08-17-2024 [facility] Start: 08-09-2024 End: 08-09-2024 [facility] Start: 08-03-2024 End: 08-03-2024 [facility] Start: 08-03-2024 [facility] Start: 07-27-2024 [facility] Start: 07-26-2024 End: 07-26-2024 Patient encounter procedure 07/26/2024 10:15 AM EDT [facility] [address] [facility] [address] [place] [address] Matteo Melo MD [address] [facility] [address] [place] [address] [facility] Start: 07-20-2024 [facility] Start: 07-20-2024 [facility] Start: 07-17-2024 [facility] Start: 07-13-2024 [facility] Start: 07-11-2024 End: 07-11-2024 Patient encounter procedure 07/11/2024 1:15 PM EST Office Visit [facility] [address] [place] [phone] Matteo Melo MD [address] [place] [address] [facility] Start: 07-06-2024 [facility] Start: 07-03-2024 Central venous cannu la insertion OR Infusaport Insertion/Removal (Not Applicable) [facility] Start: 06-30-2024 [facility] Start: 06-23-2024 End: 06-23-2024 Patient encounter procedure VALENTÍN PALUMBO Comment on above: Arrived Start: 06-14-2024 Patient referral [facility] Work Phone: Start: 06-05-2024 End: 06-05-2024 Patient encounter procedure 06/05/2024 1:00 PM EST Appointment [facility] [address] [place] [phone] [facility] Start: 05-30-2024 End: 05-30-2024 Telemedicine consultation with patient 05/30/2024 11:45 AM EST Telemedicine [facility] [address] [place] [address] [place] [address] [place] [address] [facility] Start: 05-11-2024 End: 05-11-2024 Brnchsc incl fluor gdnce dx w/cell washg spx 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 05/11/2024 7:17 AM EST [facility] [place] Start: 05-11-2024 End: 05-11-2024 Esophagoscopy flexible transoral diagnostic Esophagoscopy Malignant neoplasm of floor of mouth 05/11/2024 7:17 AM EST [facility] [place] Start: 05-11-2024 End: 05-11-2024 Glossectomy hemiglossectomy GLOSSECTOMY, ROBOT-ASSISTED, ORAL APPROACH Malignant neoplasm of floor of mouth 05/11/2024 7:17 AM EST [facility] [place] Start: 05-11-2024 End: 05-11-2024 Laryngoscopy w/wo tracheoscopy dx except Direct Laryngoscopy Malignant neoplasm of floor of mouth 05/11/2024 7:17 AM EST [facility] [place] Start: 05-11-2024 End: 05-11-2024 Tonsillectomy primary/secondary age 12/> Tonsillectomy Malignant neoplasm of floor of mouth 05/11/2024 7:17 AM EST [facility] [place] Start: 04-19-2024 Subsequent hospital visit by physician 04/19/2024 Hospital Encounter [facility] [place] [address] [place] [address] [place] [address] [place], [place] [phone] [facility] [place] Start: 04-07-2024 End: 04-07-2025 Request for Pre-Admission Testing Visit Request for Pre-Admission Testing Visit Procedures Routine Oral lesion Malignant neoplasm of floor of mouth Expected: 04/07/2024 (Approximate), Expires: 04/07/2025 [facility] Service Area Work Phone: Comment on above: Expected: 04/07/2024 (Approximate), Expires: 04/07/2025 Start: 03-08-2024 End: 03-08-2024 Patient encounter procedure [facility] Comment on above: Arrived Start: 02-16-2024 End: 02-16-2024 Patient encounter procedure 02/16/2024 2:30 PM EDT Office Visit [facility] [address] [facility] [address] [place] [phone] Luc Ham MD [address] [place] [address] [facility] Start: 02-16-2024 End: 02-16-2024 Patient encounter procedure [facility] [address] Comment on above: Arrived Start: 02-01-2024 End: 02-01-2024 Patient encounter procedure 02/01/2024 1:10 PM EDT Office Visit [facility] [address] [place] [address] Luc Ham MD [address] [facility] [address] [place] [address] Arrived [facility] Comment on above: Arrived Start: 01-16-2024 Covid-19 Vaccine ( season) Covid-19 Vaccine ( season) [facility] Start: 01-16-2024 Covid-19 Vaccine ( season) Covid-19 Vaccine ( season) [facility] Start: 01-16-2024 Covid-19 Vaccine ( season) Covid-19 Vaccine ( season) [facility] Start: 01-16-2024 Influenza vaccination Influenza Vacc ine (#1) [facility] Start: 05-17-2023 Advance Directive Discussion Advance Directive Discussion [facility] Start: 01-15-2023 Covid-19 Vaccine ( season) Covid-19 Vaccine ( season) [facility] Start: 01-15-2023 Influenza vaccination Influenza Vacc ine (#1) [facility] Start: 11-12-2022 ambulatory Ambulatory Facility:H 1 Start: 05-17-2022 Advance Directive Discussion Advance Directive Discussion [facility] Start: 05-17-2022 Depression Assessment Depression Ass essment [facility] Start: 09-04-2020 MRI of right ankle MR ankle RT wo co n [facility] Start: 09-04-2020 XR pre/post mri xray XR pre/post mri xray [facility] Start: 01-30-2015 Pneumococcal Vaccine : 65+ (2 - PPSV23 or PCV20) Pneumococcal Vaccine: 65+ (2 - PPSV23 or PCV20) [facility] Start: 01-30-2015 Pneumococcal Vaccine : 65+ (2 of 2 - PPSV23 or PCV20) Pneumococcal Vaccine: 65+ (2 of 2 - PPSV23 or PCV20) [facility] Start: 10-29-2014 RSV High Risk: (Elde rly (60+) or Population) (1 - 1-dose 75+ series) RSV High Risk: (Elderly (60+) or Population) (1 - 1-dose 75+ series) [facility] Start: 10-29-2014 RSV Vaccine (1 - 1-d ose 75+ series) RSV Vaccine (1 - 1-dose 75+ series) [facility] Start: 1999 RSV Vaccine (1 - 1-d ose 60+ series) RSV Vaccine (1 - 1-dose 60+ series) [facility] Start: 10-29-1989 Shingrix Vaccine (1 of 2) Best grix Vaccine (1 of 2) [facility] Start: 10-29-1984 Diabetes Screening Diabetes Screenin g [facility] Start: 10-29-1961 DTaP/Tdap/Td Vaccine s (1 - Tdap) DTaP/Tdap/Td Vaccines (1 - Tdap) [facility] Start: 10-29-1958 Urine microalbumin profile DTa P,Tdap,Td Vaccine (1 - Tdap) [facility] Start: 10-29-1958 Urine screening for protein Diabetes: Urine Protein Screening [facility] Start: 10-29-1957 Anxiety Screening Anxiety Screening [facility] Start: 10-29-1957 Depression Screening Depression Scre ening [facility] Start: 10-29-1949 Glaucoma screening Diabetes: R etinopathy Screening [facility] Start: 1939 Annual wellness visit Welcome to Medicare Visit [facility] Start: 1939 Echocardiography Echocardiogram [facility] Start: 1939 Hemoglobin A1c measurement Mary betes: Hemoglobin A1C [facility] Start: 1939 Lipid panel Lipid Panel [facility] Start: 1939 Medicare Annual Well ness Visit Medicare Annual Wellness Visit (AWV) [facility] Start: 1939 Urine screening for protein Diabetes: Urine Protein Screening [facility] End: 05-11-2024 Cardiac device check - Inpatient [facility] Service Area Work Phone: Comment on above: Once for 1 Occurrenc es starting 05/11/2024 until 05/11/2024 End: 05-11-2024 Cardiac device check - Surgery [facility] Work Phone: Comment on above: Once for 1 Occurrenc es starting 05/11/2024 until 05/11/2024 Comprehensive metabo lic 2000 panel - Serum or Plasma [facility] Comprehensive metabo lic 1999 panel - Serum or Plasma [facility] Comprehensive metabo lic 1999 panel - Serum or Plasma [facility] Comprehensive metabo lic 1999 panel - Serum or Plasma [facility] Comprehensive metabo lic 1999 panel - Serum or Plasma [facility] CT with contrast for radiotherapy planning [facility] CT with contrast for radiotherapy planning [facility] End: 05-11-2024 Glucose [Mass/volume] in Serum or Plasma POCT Glucose Point of Care Testing - Docked Device Routine Once (Lab) for 1 Occurrences starting 05/11/2024 until 05/11/2024 [facility] Service Area Work Phone: Comment on above: Once (Lab) for 1 Occ urrences starting 05/11/2024 until 05/11/2024 Laryngoscopy w/wo tracheoscopy dx except Direct Laryngoscopy Oral lesion Malignant neoplasm of floor of mouth [facility] [place] End: 03-02-2025 MR Biliary ducts and Pancreatic duct WO and W contrast IV MRI PANC/TRISH WO/W IVCON Radiology Routine IPMN (intraductal papillary mucinous neoplasm) 1 Occurrences starting 02/01/2024 until 03/02/2025 [facility] Work Phone: Comment on above: 1 Occurrences starti ng 02/01/2024 until 03/02/2025 End: 03-02-2025 MR Unspecified body region 3D post processing MRI 3D POST PROCESSING Radiology Routine IPMN (intraductal papillary mucinous neoplasm) 1 Occurrences starting 02/01/2024 until 03/02/2025 [facility] Comment on above: 1 Occurrences starti ng 02/01/2024 until 03/02/2025 Patient Education [facility] Work Phone: Patient referral [facility] Work Phone: Surgical pathology study Surgica l Pathology Exam Pathology and Cytology Routine Oral lesion 04/07/2024 11:[address] [facility] Work Phone: Surgical pathology study [facility] Service Area Work Phone: Comment on above: Release Upon Orderin g for 1 Occurrences starting 05/11/2024, 1 completed End: 06-05-2024 Surgical pathology study [facility] Service Ar ea Work Phone: Comment on above: Once (Lab) for 1 Occ urrences starting 06/05/2024 until 06/05/2024, 1 completed [facility] Immunizations Immunization Date Immunization Notes Care Provider Fa cili 04-17-2024 influenza, high dose seasonal, preservative-free; Translations: [Fluzone High Dose Vaccine] Demetrius Cooper [facility] [place] 04-17-2024 influenza virus vaccine, unspecified formulation Mary Schneider MD Work Phone: [facility] Work Phone: 02-09-2024 zoster vaccine recombinant Wiley Sarmini [facility] 11-22-2023 pneumococcal 20-reta nt conjugate vaccine Wiley Sarmini [facility] 11-22-2023 zoster vaccine recombinant Wiley Sarmini [facility] 04-28-2023 COVID-19 (PFIZER) 12Y and older Demetrius Cooper MD Work Phone: [facility] 04-12-2023 influenza virus vaccine, unspecified formulation Anjali Ruby [facility] 11-25-2021 Pfizer Haque Cap SARS-CoV-2 Vaccination Luc Ham MD Work Phone: [facility] 11-25-2021 SARS-CoV-2 mRNA (mrqkclcbvlg-prof-hdsj ose) vaccine Demetrius Cooper [facility] 11-25-2021 SARS-CoV-2, Unspecified Missy PEMBERTON Work Phone: [facility] 03-06-2021 SARS-CoV-2 (COVID-19 ) mRNA BNT-162b2 vax Demetrius Cooper [facility] Comment on above: Result Comment: 2022: [id number] 03-06-2021 SARS-CoV-2, Unspecified Luc Ham MD Work Phone: [facility] 02-18-2021 influenza virus vaccine, unspecified formulation Demetrius Cooper [facility] 02-18-2021 Influenza, injectabl e, Madin Mireya Canine Kidney, preservative free, quadrivalent Luc Ham MD Work Phone: [facility] 06-27-2020 SARS-CoV-2 (COVID-19 ) Ad26 vaccine, recombinant Dequan GALICIA [facility] 06-27-2020 SARS-CoV-2 (COVID-19 ) mRNA BNT-162b2 vax Dequan GALICIA [facility] 06-27-2020 SARS-CoV-2, Unspecified Luc Ham MD Work Phone: [facility] 06-06-2020 SARS-CoV-2 (COVID-19 ) Ad26 vaccine, recombinant Dequan GALICIA [facility] 06-06-2020 SARS-CoV-2 (COVID-19 ) mRNA BNT-162b2 vax Dequan GALICIA [facility] 06-06-2020 SARS-CoV-2, Unspecified Luc Ham MD Work Phone: [facility] 02-14-2020 influenza virus vaccine, unspecified formulation Demetrius Cooper [facility] 02-14-2020 Influenza, injectabl e, Madin Mireya Canine Kidney, preservative free, quadrivalent Luc Ham MD Work Phone: [facility] 01-31-2019 influenza, high dose seasonal, preservative-free Luc Ham MD Work Phone: [facility] 01-22-2018 influenza virus vaccine, unspecified formulation Luc Ham MD Work Phone: [facility] 01-22-2018 influenza, injectabl e, quadrivalent, contains preservative Luc Ham MD Work Phone: [facility] 01-22-2018 influenza, unspecifi ed formulation Demetrius Cooper [facility] 01-30-2014 pneumococcal conjuga te vaccine, 13 valent Demetrius Cooper [facility] 01-30-2014 pneumococcal conjuga te vaccine, 7 valent Luc Ham MD Work Phone: [facility] Payers Date Payer Category Payer Private Health Insurance [id number] 2024 Self-pay [id number] 2023 Dual Eligibility Medicare/Medicaid Organization [facility] DUAL COMPLETE [id number] 2022 Medicare [id number]. 1.13.159. 2.7.3.762348.315 2022 Medicare (Managed Care) 1.2. [id number]. 2.7.9.767573.762360.315 2022 Medicare [id number] 2022 Medicare [id number] 2..840.1.101378.19 1959 Medicare [id number] 1959 Medicare [id number] 1959 Medicare [id number] 1959 Unknown [id number] 1939 Unknown [id number] 2.16.840.1.906355.3.579. 2.647 1939 Unknown [id number] 2.16.840.1.714296.3.579. 2.593 1939 Unknown [id number] 2.16.840.1.013189.3.579. 2.593 1939 Unknown [id number] 2.16.840.1.981235.3.579. 2.593 1939 Unknown [id number] 2.16.840.1.691702.3.579. 2.593 1939 Unknown [id number] 2.16.840.1.181235.3.579. 2.593 1939 Unknown [id number] 2.16.840.1.951867.3.579. 2.593 1939 Unknown [id number] 2.16.840.1.951353.3.579. 2.593 1939 Unknown [id number] 2.16.840.1.555352.3.579. 2.593 1939 Unknown [id number] 2.16.840.1.495097.3.579. 2.593 1939 Unknown [id number] 2.16.840.1.344438.3.579. 2.593 1939 Unknown [id number] 2.16.840.1.320441.3.579. 2.593 1939 Unknown [id number] 2.16.840.1.359959.3.579. 2.593 1939 Unknown [id number] 2.16.840.1.927056.3.579. 2.593 1939 Unknown [id number] 2.16.840.1.316330.3.579. 2.593 1939 Unknown [id number] 2.16.840.1.940171.3.579. 2.593 1939 Unknown [id number] 2.16.840.1.773627.3.579. 2.593 1939 Unknown [id number] 2.16.840.1.491798.3.579. 2.593 1939 Unknown [id number] 2.16.840.1.344841.3.579. 2.593 1939 Unknown [id number] 2.16.840.1.258481.3.579. 2.593 1939 Unknown [id number] 2.16.840.1.515014.3.579. 2.593 1939 Unknown [id number] 2.16.840.1.147877.3.579. 2.356 1939 Unknown [id number] 2.16.840.1.356264.3.579. 2.356 1939 Unknown [id number] 2.16.840.1.968479.3.579. 2.356 1939 Unknown [id number] 2.16.840.1.628861.3.579. 2.727 1939 Unknown [id number] 2.16.840.1.888095.3.579. 2.727 1939 Unknown [id number] 2.16.840.1.269831.3.579. 2.72 1939 Unknown [id number] 2.16.840.1.083989.3.579. 2.72 1939 Unknown [id number] 2.16.840.1.601161.3.579. 2.72 1939 Unknown [id number] 2.16.840.1.461142.3.579. 2.72 1939 Unknown [id number] 2.16.840.1.788440.3.579. 2.72 1939 Unknown [id number] 2.16.840.1.976725.3.579. 2.727 1939 Unknown [id number] 2.16.840.1.114410.3.579. 2.72 1939 Unknown [id number] 2.16.840.1.724344.3.579. 2.727 1939 Unknown [id number] 2.16.840.1.322202.3.579. 2.72 1939 Unknown [id number] 2.16.840.1.139018.3.579. 2.727 1939 Unknown [id number] 2.16.840.1.676165.3.579. 2.72 1939 Unknown [id number] 2.16.840.1.952790.3.579. 2.72 1939 Unknown [id number] 2.16.840.1.689139.3.579. 2.72 1939 Unknown [id number] 2.16.840.1.430824.3.579. 2.72 1939 Unknown [id number] 2.16.840.1.317622.3.579. 2.72 1939 Unknown [id number] 2.16.840.1.077443.3.579. 2.72 1939 Unknown [id number] 2.16.840.1.421810.3.579. 2.124 1939 Unknown [id number] 2.16840.1.572995.3.579. 2.1244 1939 Unknown [id number] 2.16840.1.319226.3.579. 2.1244 1939 Unknown [id number] 2.16840.1.173878.3.579. 2.1244 1939 Unknown [id number] 2.16840.1.825134.3.579. 2.124 1939 Unknown [id number] 2.16840.1.757733.3.579. 2.1244 1939 Unknown [id number] 2.16.840.1.190756.3.579. 2.124 1939 Unknown [id number] 2.16.840.1.845357.3.579. 2.124 1939 Unknown [id number] 2.16.840.1.571235.3.579. 2.124 1939 Unknown [id number] 2.16.840.1.423060.3.579. 2.1259 1939 Unknown [id number] 2.16.840.1.937474.3.579. 2.125 1939 Unknown [id number] 2.16.840.1.911302.3.579. 2.125 1939 Unknown [id number] 2.16.840.1.555871.3.579. 2.125 1939 Unknown [id number] 2.16.840.1.506459.3.579. 2.1258 1939 Unknown [id number] 2.16.840.1.357490.3.579. 2.1258 1939 Unknown [id number] 2.16.840.1.542748.3.579. 2.1258 1939 Unknown [id number] 2.16.840.1.774000.3.579. 2.1258 1939 Unknown [id number] 2.16.840.1.321252.3.579. 2.1258 1939 Unknown [id number] 2.16.840.1.976212.3.579. 2.1258 1939 Unknown [id number] 2.16.840.1.729351.3.579. 2.1258 1939 Unknown [id number] 2.16.840.1.803896.3.579. 2.1258 1939 Unknown [id number] 2.16.840.1.066833.3.579. 2.125 1939 Unknown [id number] 2.16.840.1.143055.3.579. 2.1259 Unknown [id number] 2.16.840.1.851090.3.579. 2.531 Unknown [id number] 2.16.840.1.368593.3.579. 2.531 Unknown [id number] 2.16.840.1.613775.3.579. 2.531 Unknown [id number] 2.16.840.1.659857.3.579. 2.531 Unknown [id number] 2.16.840.1.900621.3.579. 2.531 Unknown [id number] 2.16.840.1.655948.3.579. 2.531 Unknown [id number] 2.16.840.1.660131.3.579. 2.531 Unknown [id number] 2.16.840.1.628032.3.579. 2.531 Unknown [id number] 2.16.840.1.181963.3.579. 2.531 Unknown [id number] 2.16.840.1.856170.3.579. 2.531 Unknown [id number] 2.16.840.1.367212.3.579. 2.531 Unknown [id number] 2.16.840.1.469973.3.579. 2.531 Unknown [id number] 2.16.840.1.593941.3.579. 2.531 Unknown [id number] 2.16.840.1.063309.3.579. 2.531 Unknown [id number] 2.16.840.1.883943.3.579. 2.531 Unknown [id number] 2.16.840.1.802744.3.579. 2.531 Unknown [id number] 2.16.840.1.520770.3.579. 2.531 Unknown [id number] 2.16.840.1.399278.3.579. 2.531 Unknown [id number] 2.16.840.1.851013.3.579. 2.531 Unknown [id number] 2.16.840.1.098981.3.579. 2.531 Unknown [id number] 2.16.840.1.422822.3.579. 2.531 Unknown [id number] 2.16.840.1.345660.3.579. 2.531 Social History Date Type Detail Facility Tobacco smoking stat us NHIS Unknown if ever smoked [facility] Start: 1940 Sex Assigned At Male F [facility] Start: 04-01-2023 End: 01-18-2025 Sex Assigned At [facility] Start: 04-27-2022 End: 02-16-2024 Tobacco smoking status Ex-smoker (finding) [facility] Comment on above: former smoker quit a t age 41, 1 PPD Patient states he sm oked about 1.5 PPD, cigarettes, from about 17 y.o. to about 41 y.o. Start: 04-10-2022 Tobacco smoking status Never [facility] Comment on above: former smoker quit a t age 41, 1 PPD Patient states he sm oked about 1.5 PPD, cigarettes, from about 17 y.o. to about 41 y.o. End: 05-17-1983 History of tobacco use Current smoker [facility] End: 05-17-1983 History of tobacco use Cigarette Smoker [facility] Start: 04-01-2023 Tobacco use and exposure Smokeless tobacco non-user [facility] Start: 04-01-2023 End: 01-18-2025 History of Social function [facility] Start: 1940 Sex Assigned At [facility] History of tobacco use Passive smoker [facility] Start: 02-12-2024 End: 01-18-2025 Alcoholic beverage intake Current drinker of alcohol (finding) [facility] Start: 12-22-2022 Tobacco Comment Years smoked: 25 [facility] Start: 12-22-2022 Alcohol Comment 1 or 2 drinks/ day, monthly or less; Caffeine: 1 drink/day [facility] Start: 04-07-2024 End: 12-04-2024 Tobacco use and exposure Former smokeless tobacco user [facility] Work Phone: Start: 04-01-2024 End: 09-11-2024 Exposure to SARS-CoV-2 (event) Not sure [facility] Start: 05-11-2024 Gender identity Identifies as male gender (finding) [facility] Work Phone: Start: 05-11-2024 Sexual orientation Heterosexual (oziel anderson) [facility] Work Phone: Start: 06-14-2024 End: 09-26-2024 Sex Male (finding) [facility] Start: 08-20-2024 End: 11-23-2024 Tobacco smoking status NHIS Never smoked tobacco (finding) [facility] Start: 08-21-2024 SDOH Follow up SDOH Follow up [facility] Work Phone: Sexual Orientation [facility] Start: 12-04-2024 Alcohol Comment or less or week [facility] Work Phone: Medical Equipment Procedure Code Equipment Code Equipment Origin al Text Equipment Identifier Dates Insertion of central venous catheter (CVC) with subcutaneous port for chemotherapy Vascular port/catheter [id number] [facility] Start: 07-17-2024 End: 05-11-2024 See [...] [facility] ionnaire 2 item (PHQ-2) [Reported] [facility] Work Phone: 08-21-2024 Functional status Patient at Baseline [facility] Work Phone: 03-23-2024 Functional Status N/A [facility] 10-21-2023 Functional Status N/A [facility] 09-17-2023 Functional Status N/A [facility] 05-25-2023 Functional Status N/A [facility] 03-10-2023 Functional Status N/A [facility] 02-25-2023 Functional Status N/A [facility] 01-12-2023 Functional Status N/A [facility] 09-22-2022 Functional Status N/A [facility] 05-19-2022 Functional Status N/A [facility] Mental Status Date Assessment Result Facility 08-21-2024 Cognitive function Cognitive Sta tus Patient at Baseline [facility] Work Phone: Clinical Notes 11-29-2021 to 01-18-2025 [...] see him PRN. documented in this encounter [facility] 12-26-2024 Progress note [facility] enter 12-11-2024 History of Present illness Narrative Formatting of this note might be differe nt from the original. HEAD AND NECK SURGERY FOLLOW UP [facility] Referring Provider: Dr. Ham HPI I had [...] onc) and Dr Lamas (med onc) at [facility] - November 2024 post treatment PET with [...] lymph nodes Procedure Note: Diagnostic Flexible Laryngoscopy (20861) Indication: patient symptoms requiring evaluation of pharyngeal/laryngeal/hypopharyngeal [...] now s/p completion of chemoradiation treatment at [facility] August 2024 - Doing well overall, scope and exam findings with improved thick mucous and edema. 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 Work Phone: 12-05-2024 Note DC Electrophysiology Consult Note DC Cardiology [facility] Reason for visit: Device at [...] (CMS/HCC) Heart valve disease Hyperlipidemia Throat cancer (CMS/HCC) VT (ventricular tachycardia) (CMS/HCC) PSH: Past Surgical History: Procedure Laterality Date [...] on file Intimate Partner Violence: Unknown (07/08/2023) DC Safety & Environment Fear of Current or Ex-Partner: Not on file Emotionally Abused: Not on file Physically Abused: Not on file Sexually Abused: Not on file Physically or Sexually Abused: Not on file Depression: Not at risk (09/11/2024) Received from [facility] PHQ-2 Patient Health Questionnaire-2 Score: 0 [...] MOUTH IN THE MORNING 100 tablet 3 DDIWUOHDUT-YWJLUUJ-RBTFXMOB ORAL Take by mouth if needed. clopidogrel [...] 1 tablet every day by oral route. fojegvasbp-ugeeglvkigyyp-uwfc (Esgic) 50-325-40 mg capsule Take 1 capsule [...] mg by mouth in the morning. HYDROcodone-acetaminophen ([place]) 5-325 mg tablet Take 1 tablet by mout (more content not included)... 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 The [place] Diabetes Association: diabetes.org ??? The Association of [...] levels in y (more content not included)... 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 -he notes this is overall at baseline [...] 5 mg, Daily aspirin 81 mg, Daily bhnecbfidm-dllxhufdfmabt-vwyttaqb 50-325-40 MG tablet 1 tablet, Every 4 [...] GERD (gastroesophageal reflux disease) Glaucoma HTN (hypertension) ([facility]) Hyperlipidemia (CMS/HCC) 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CMS/HCC) 01/27/2024 Migraine [...] mellitus with diabetic neuropathy (CMS/HCC) Ventricular tachycardia ([facility]/HCC) Past Surgical History: Past Surgical History: Procedure Laterality Date CARDIAC CATHETERIZATION 08/30/2019 CATARACT EXTRACTION Bilateral CERVICAL FUSION 2015 C3-C4-C5 CHOLECYSTECTOMY GASTROSTOMY TUBE PLACEMENT HERNIA REPAIR 2001 INSERT / REPLACE / REMOVE PACEMAKER 2015 pacemaker insertion OTHER SURGICAL HISTORY 2004 ablation OTHER SURGICAL HISTORY 2006 sphincterotomy NM CHOLECYSTECTOMY 02/2020 Laparoscopic Cholecystectomy - [place] NM IMPLANT ARTIFICIAL SPHINCTER 2017 PROSTATE 2000 TONSILLECTOMY [...] 2+ 2+ Patellar 2+ 2+ Coordination Right: Skqmlc-fi-srps normal.Left: Qjizuc-ws-wqad normal. Gait Casual gait is normal including [...] up in 6 months [facility]id[facility]64[facility] History of Present illness Narrative* Veena Adkins, - 09/27/2024 1:30 PM EDT Images from [...] 5 mg, Daily aspirin 81 mg, Daily ufncumovra-efmpbyqlsmdjv-wuzvxrhq 50-325-40 MG tablet 1 tablet, Every 4 [...] 2005 ablation OTHER SURGICAL HISTORY 2007 sphincterotomy NM CHOLECYSTECTOMY 02/2020 Laparoscopic Cholecystectomy - [place] NM IMPLANT ARTIFICIAL SPHINCTER 2017 PROSTATE 2000 TONSILLECTOMY [...] schedule early next week. documented in [facility] encounter[facility] HospitalUvawhotxex10-37-9906 Radiology Diagnostic study [facility] [place] [address] [place] [address] CT Scan Report Signed Patient: Jeremie Bennett MR#: [id number] : 1940 Acct:[id number] Age/Sex: 83 / M ADM Date: 5 Loc: ER Room: Type: [facility] ER Attending Dr: Copies to: Maru Hayes [...] Gordon M.D. 09/20/2024 8:03 PM Dictation Location: [employer]17 Transcribed By: [facility] 09/20/242002 Dictated By: Rafi Gordon II, MD 09/20/241947 Signed By: 09/20/242002 [facility] Work Phone: 1(693) 810-590205-07-2025 Hospital Discharge instructions Additional Instructions Please return [...] testing/monitoring to rule out evidence of possible cancer.[facility] Work Phone: 1(190) 959-298505-01-2025 NotePatient Education Nutrition BMI for Adults Body [...] for Disease Control and Prevention: cdc.gov ??? [place] Heart Association: heart.org ??? National Heart, Lung, and Blood [place]: nhlbi.nih.gov This information is not intended to replace advice given to you by your health care provider. Make sure you discuss any questions you have with your health care provider. Document Revised: 01/21/2023 Document Reviewed: 01/14/2023 [employer] Patient Education ? 2023 [employer] 09-11-2024 History of Present illness Narrative* Mary Schneider MD - 09/11/2024 2:00 PM EDT HEAD AND NECK SURGERY FOLLOW UP [facility] Referring Provider: Dr. Ham HPI I had [...] onc) and Dr Lamas (med onc) at [facility] after completion of chemoradiation treatment earlier this month. Weight down to 149 lbs (prior 170 lbs). 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 Had pacemaker replaced. 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, he will do this closer to home - Discussed imaging, he has PET scheduled in November - Will need post-treatment NavDx either now or at next appointment - Discussed NCCN guidelines and ongoing surveillance - Follow up with me in 2-3 months after PET, certainly sooner if any issues Mary Schneider MD documented in this [facility] Work Phone: 1(527) 668-609204-24-2025 Evaluation note* Diagnosis Onset Date Resolution Status [...] 26 2:36pm Cancer associated pain acute Ju 2024 7:46am 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, 2024 7:46am 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, 2024 9:41am Tongue cancer acute November 23, 2024 10:01am [facility] Work Phone: 1(758) 631-872204-24-2025 Evaluation note* Diagnosis Onset Date Resolution Status [...] 26 2:36pm Cancer associated pain acute Ju 2024 7:46am 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, 2024 7:46am 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..] Strong:Four Ways to Beat the Frailty Risk [email or web address]/[email or web address]-buf-zjzwnbxoll/st hm-iqhuga-gjmk- ueyh-tg-yiqt-frm-lpdieqz-pfqx Exam Physical Exam Vital Signs: Temp Pulse [...] % (Auto) 75.8, Lymph % (Auto) 9.0, [place] % (Auto) 13.6, Eos % (Auto) 1.0, Baso % (Auto) 0.6, Nucleat RBC Rel Count 0.1, Neut # (Auto) 4.7, Lymph # (Auto) 0.6 L, [place] # (Auto) 0.8, Eos # (Auto) 0.1, [...] % (Auto) 77.0, Lymph % (Auto) 10.5, [place] % (Auto) 11.3, Eos % (Auto) 0.7, Baso % (Auto) 0.5, Nucleat RBC Rel Count 0.2, Neut # (Auto) 5.7, Lymph # (Auto) 0.8 L, [place] # (Auto) 0.8, Eos # (Auto) 0.1, Baso # (Auto) 0.0, Monocyte Dist Width 23.19 H, ESR 42 H, PT 12.9, INR 1.1, Lactic Acid 0.8, C-Reactive Prot, Quant Cancelled 08/20/24 12:20: PHA Creatinine Clear 58.71, Sodium 136, Potassium 3.7, Chloride 104, Carbon Soehjsy81.4, Anion Gap 10.3, BUN 16, Creatinine 0.85, Est GFR (CKD- EPI) > 60.0, Glucose 106 H, Calcium 8.4 L, Total Bilirubin 0.6, AST 18, ALT 17, Alkaline Phosphatase 66, C-Reactive Prot, Quant 3.3 H, Total Protein 5.9 L, Albumin 3.4 L, Globulin 2.5, Albumin/Globulin Ratio 1.4 Documented By: Zeke Brennan MD 08/21/24 1407 Signed By: 08/21/24 1414 [facility]04-07-2025 [place] [address] Hospitalist Progress Note Signed Patient: Jeremie Bennett MR#: [id number] : 1940 Acct:[id number] Age/Sex: 83 / M Adm Date: 5 Loc: Room: [address] [place] [address] Type: ADM IN Attending Dr: Zeke Brennna MD Copies to: ~ Date of Service: 08/21/2024 Subjective Subjective Narrative: Attending note: I saw the patient personally on the day of encounter. I reviewed the relevant history, and performed the kim elements of the physical examination. I reviewedthe relevant laboratory workup, radiological studies and the current treatment plan. I formulated the plan of care and confirmed it with the re sident/student/INSULATION CUTTER AND FORMER. This patient presented to the emergency department [...] Dose Route Start Last Admin Trade Name Deyviq PRN Reason Stop Dose Admin Albuterol 1 [...] spray 08/21/24 09:00 08/21/24 09:02 Fluticasone Propionate [place] 120 [place]/16 Gm Bottle INTRANASAL 08/21/25 08:59 2 spray [...] Drops/2.5 Ml Bottle EYE-BOTH 08/21/25 20:59 QPM [facility] Lidocaine/Prilocaine 1 applic 08/20/24 21:59 Lidocaine-Prilocaine [...] 1135 Signed By: 08/21/24 1414 08/21/24 1152 [facility]04-07-2025 Consult note Author Yash Thomas [facility] Note Date/Time August 21, 2024 11:1 0am [facility] [address] [place] [address] Infect. Disease Consult Note Signed Patient: Jeremie Bennett MR#: [id number] : 1940 Acct:[id number] Age/Sex: 83 / M Adm Date: 5 Loc: Room: [address] [place] [address] Type: ADM IN Attending Dr: Zeke Brennan [...] at 10 PM CC: Zeke Brennan MD [facility] Medical History Pacemaker Prostate cancer surgery [...] 20 Mg Tablet) 20 mg PO QPM [facility] Stop: 08/21/25 20:59 Clopidogrel Bisulfate (Clopidogrel Bisulfate 75 Mg Tablet) 75 mg PO DAILY [facility] Stop: 08/21/25 08:59 Last Admin: 08/21/24 09:00 Dose: 75 mg Dorzolamide HCl (Dorzolamide 2% Op Soln 200 Drops/10 Ml Bottle) 1 drops EYE-BOTH BID [facility] Stop: 08/21/25 08:59 Last Admin: 08/21/24 09:04 Dose: 1 drops Famotidine (Famotidine 20 Mg Tablet) 20 mg PO QPM [facility] Stop: 08/21/25 20:59 Fentanyl (Fentanyl Patch 12 Mcg/Hour Patch.Td72) 12 mcg TRANSDERML Q72HR [facility]; Protocol Fluticasone Propionate (Fluticasone Propionate [place] 120 [place]/16 Gm Bottle) 2 spray INTRANASAL QAM [facility] Stop: 08/21/25 08:59 Last Admin: 08/21/24 09:02 Dose: 2 spray Ceftriaxone Sodium (Rocephin) 1 gm in 50 mls @ 100 mls/hr IV QHS [facility] Isosorbide Mononitrate (Isosorbide Mononitrate 24hr Er 30 Mg Tab.Er.24h) 30 mg PO QAM [facility] Stop: 08/21/25 08:59 Last Admin: 08/21/24 09:00 Dose: 30 mg Latanoprost (Latanoprost 0.005% Op Soln 50 Drops/2.5 Ml Bottle) 1 drops EYE-BOTH QPM [facility] Stop: 08/21/25 20:59 Lidocaine/Prilocaine (Lidocaine-Prilocaine Cr 2.5-2.5% 5 Gm Tube) 1 applic TOPICAL ONCE PRN PRN Reason: pain Stop: 08/20/25 21:58 Metformin HCl (Metformin 500 Mg Tablet) 500 mg PO DAILY@0800 [facility] Stop: 08/21/25 07:59 Last Admin: 08/21/24 09:00 Dose: 500 mg Multi-Ingredient Mouthwash/Gargle (Magic Mouthwash With Lidocaine) 10 ml PO QIDPRN PRN Reason: mucositis Stop: 08/20/25 22:46 Nystatin (Nystatin Susp 500,000 Unit/5 Ml Udc) 500,000 unit PO QID [facility] Stop: 08/21/25 08:59 Last Admin: 08/21/24 09:01 Dose: 500,000 unit Olanzapine (Olanzapine 2.5 Mg Tablet) 2.5 mg PO BID [facility] Stop: 08/21/25 08:59 Last Admin: 08/21/24 09:00 Dose: 2.5 mg Ondansetron HCl (Ondansetron Odt 4 Mg Tab.Rapdis) 8 mg PO Q8HR PRN PRN Reason: nausea and vomiting Stop: 08/20/25 22:49 Oxycodone HCl (Oxycodone Ir 5 Mg Tablet) 10 mg PO Q4HR PRN PRN Reason: pain Last Admin: 08/21/24 09:01 Dose: 10 mg Pantoprazole Sodium (Pantoprazole 40 Mg Tablet.Dr) 40 mg PO BID [facility] Stop: 08/21/25 08:59 Last Admin: 08/21/24 09:00 Dose: 40 mg Rivaroxaban (Rivaroxaban 10 Mg Tablet) 10 mg PO QHS [facility] Stop: 08/21/25 21:59 Sennosides (Sennosides 8.6 Mg Tablet) 8.6 mg PO BID PRN PRN Reason: constipation Stop: 08/20/25 21:58 Last Admin: 08/21/24 09:00 Dose: 8.6 mg Silver Sulfadiazine (Silver Sulfadiazine 1% Cream 400 Gm Jar) 1 applic TOPICAL BID [facility] Stop: 08/21/25 08:59 Last Admin: 08/21/24 09:07 Dose: 1 applic Sodium Chloride (Sodium Chloride 0.9 % 10 Ml Syringe) 0 ml IV-PUSH PRN PRN PRN Reason: Flush Stop: 08/20/25 16:56 Last Admin: 08/20/24 17:20 Dose: 10 ml Sodium Chloride (Sodium Chloride 0.9 % 10 Ml Syringe) 10 ml IV-PUSH Q8H [facility] Stop: 08/20/25 19:44 Last Admin: 08/21/24 03:06 Dose: Not Given Sotalol HCl (Sotalol 80 Mg Tablet) 40 mg PO BID [facility] Stop: 08/21/25 08:59 Last Admin: 08/21/24 09:01 Dose: 40 mg Tizanidine HCl (Tizanidine 4 Mg Tablet) 4 mg PO QPM [facility] Stop: 08/21/25 20:59 Zonisamide (Zonisamide 25 [...] Yash Thomas MD 08/21/24 1053 Signed By: <Electronically signed by MD Yash Thomas> 08/21/24 1110 [facility] Work Phone: 1([phone]) 706-801004-07-[address] [address] Infect. Disease Consult Note Signed Patient: Jeremie Bennett MR#: [id number] : 1940 Acct:[id number] Age/Sex: 83 / M Adm Date: 5 Loc: Room: [address] [place] [address] Type: ADM IN Attending Dr: Zeke Brennan [...] at 10 PM CC: Zeke Brennan MD [facility] Medical History Pacemaker Prostate cancer surgery [...] mg PO QPM CINTHIA Stop: 08/21/25 20:59 Fentanyl (Fentanyl Patch 12 Mcg/Hour Patch.Td72) 12 mcg TRANSDERML Q72HR [facility]; Protocol Fluticasone Propionate (Fluticasone Propionate [place] 120 [place]/16 Gm Bottle) 2 spray INTRANASAL QAMS Stop: 08/21/25 08:59 Last Admin: 08/21/24 09:02 Dose: 2 spray Ceftriaxone Sodium (Rocephin) 1 gm in 50 mls @ 100 mls/hr IV QHS [facility] Isosorbide Mononitrate (Isosorbide Mononitrate 24hr Er 30 Mg Tab.Er.24h) 30 mg PO QAM [facility] Stop: 08/21/25 08:59 Last Admin: 08/21/24 09:00 Dose: 30 mg Latanoprost (Latanoprost 0.005% Op Soln 50 Drops/2.5 Ml Bottle) 1 drops EYE-BOTH QPM [facility] Stop: 08/21/25 20:59 Lidocaine/Prilocaine (Lidocaine-Prilocaine Cr 2.5-2.5% 5 Gm Tube) 1 applic TOPICAL ONCE PRN PRN Reason: pain Stop: 08/20/25 21:58 Metformin HCl (Metformin 500 Mg Tablet) 500 mg PO DAILY@0800 [facility] Stop: 08/21/25 07:59 Last Admin: 08/21/24 09:00 Dose: 500 mg Multi-Ingredient Mouthwash/Gargle (Magic Mouthwash With Lidocaine) 10 ml PO QIDPRN PRN Reason: mucositis Stop: 08/20/25 22:46 Nystatin (Nystatin Susp 500,000 Unit/5 Ml Udc) 500,000 unit PO QID [facility] Stop: 08/21/25 08:59 Last Admin: 08/21/24 09:01 Dose: 500,000 unit Olanzapine (Olanzapine 2.5 Mg Tablet) 2.5 mg PO BID [facility] Stop: 08/21/25 08:59 Last Admin: 08/21/24 09:00 Dose: 2.5 mg Ondansetron HCl (Ondansetron Odt 4 Mg Tab.Rapdis) 8 mg PO Q8HR PRN PRN Reason: nausea and vomiting Stop: 08/20/25 22:49 Oxycodone HCl (Oxycodone Ir 5 Mg Tablet) 10 mg PO Q4HR PRN PRN Reason: pain Last Admin: 08/21/24 09:01 Dose: 10 mg Pantoprazole Sodium (Pantoprazole 40 Mg Tablet.Dr) 40 mg PO BID CINTHIA Stop: 08/21/25 [...] MD 08/21/24 1053 Signed By: 08/21/24 1110 [facility]04-07-2025 Radiology Diagnostic study note [facility] Main [place] [address] [place] [address] CT Scan Report Signed Patient: Jeremie Bennett MR#: [id number] : 1940 Acct:[id number] Age/Sex: 83 / M ADM Date: 5 Loc: Room: [address] [place] [address] Type: ADM IN Attending Dr: Jaiden Nance [...] Christian Melton M.D.08/21/2024 5:58 AM Dictation Location: [place] [address] Transcribed By: [facility] 08/21/24 0558 Dictated By: Christian Melton DO 08/21/24 0555 Signed By: 08/21/24 0558 [facility]03-26-2025 Progress note Author Debora Wild [facility] Note Date/Time August 09, 2024 10: 25am [facility] [address] [place] [address] Palliative Medicine Encounter Patient: Jeremie Bennett MR#: [id number] : 1940 Acct:[id number] Age/Sex: 83 / M Copies to: RAYSHAWN [...] tablet 81 mg PO DAILY 06/14/24 08/09/24 uhtuaoa-rjiisgmckntxm-nsppkvkw 250 1 tab PO Q4-6H PRN pain [...] tabs 08/09/24 Is patient having pain?: Yes [facility] Medical History (Updated 08/09/24 @ 09:38 [...] Alcohol Substance Abuse Comment: rare alcohol use Carney Symptom Assessment Scale Pain: throat pain controlled [...] recorder, note dictated by Debora Wild APRN, INSULATION CUTTER AND FORMER-C ACHPN Dictated By: Debora Wild APRN DD/ 0945 Signed By: <Electronically signed by RAYSHAWN Wild> 08/09/24 [facility] Work Phone: 1(920) 466-237403-26-2025 [place] [address] Palliative Medicine Encounter Patient: Jeremie Bennett MR#: [id number] : 1940 Acct:[id number] Age/Sex: 83 / M Copies to: RAYSHAWN [...] tablet 81 mg PO DAILY 06/14/24 08/09/24 fgaycqr-sczcmveksstcs-ibkixhqs 250 1 tab PO Q4-6H PRN pain [...] Alcohol Substance Abuse Comment: rare alcohol use Carney Symptom Assessment Scale Pain: throat pain controlled [...] recorder, note dictated by Debora Wild APRN, INSULATION CUTTER AND FORMERRosemaryC ACHPN Dictated By: Debora Wild APRN DD/ 0945 Signed By: 08/09/24 [facility]03-12-2025 Progress note Author Maru Ma [facility] Note Date/Time July 26, 2024 12: 02pm [facility] [address] [place] [address] Palliative Medicine Encounter Patient: Jeremie Bennett MR#: [id number] : 1940 Acct:[id number] Age/Sex: 83 / M Copies to: DO [...] tablet 81 mg PO DAILY 06/14/24 07/26/24 qqbqnab-mqtntuelurftn-ejczjhde 250 1 tab PO Q4-6H PRN pain [...] Alcohol Substance Abuse Comment: rare alcohol use Carney Symptom Assessment Scale See above Exam Exam [...] Ma DO> 07/26/24 1202 <Electronically signed by DO FELLOW Mario El> 07/26/24 0944 [facility] Work Phone: 1(797) 407-736003-12-2025 [place] [address] Palliative Medicine Encounter Patient: Jeremie Bennett MR#: [id number] : 1940 Acct:[id number] Age/Sex: 83 / M Copies to: DO [...] tablet 81 mg PO DAILY 06/14/24 07/26/24 pnfyjow-ffephermkuecj-bwrgfkua 250 1 tab PO Q4-6H PRN pain [...] Alcohol Substance Abuse Comment: rare alcohol use Carney Symptom Assessment Scale See above Exam Exam [...] 0833 Signed By: 07/26/24 1202 07/26/24 0944 [facility]03-12-2025 Evaluation note* Diagnosis Onset Date Resolution Status Admit Date 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, 2024 8:13am Cancer associated pain acute [facility] 2024 8:22am Nausea acute July 26 8:22am 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, 2024 8:22am [facility] Work Phone: 1([phone]) 344-707603-12-2025 Evaluation note* Diagnosis Onset Date Resolution Status Admit Date 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, 2024 8:13am Cancer associated pain acute [facility] 2024 8:22am Nausea acute July 26 8:22am 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, 2024 8:22am Cancer associated pain acute [facility] 2024 7:29am Constipation acute August 02, 2024 7:29am Squamous cell carcinoma of oropharynx acute August 02, 2024 7:29am Thrush, oral acute August 02, 2024 7:29am [facility] Work Phone: 1([phone]) 815-839603-12-2025 Evaluation note* Diagnosis Onset Date Resolution Status Admit Date 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, 2024 8:13am Cancer associated pain acute [facility] 2024 8:22am Nausea acute July 26 8:22am 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, 2024 8:22am Cancer associated pain acute [facility] 2024 7:29am Constipation acute August 02, 2024 7:29am Squamous cell carcinoma of oropharynx acute August 02, 2024 7:29am Thrush, oral acute August 02, 2024 7:29am Cancer associated pain acute [facility] 2024 7:51am Constipation acute August 09, 2024 7:51am Nausea acute August 09 7:51am Squamous cell carcinoma of oropharynx acute August 09, 2024 7:51am Squamous cell carcinoma of oropharynx acute August 09, 2024 9:23am [facility] Work Phone: 1([phone]) 787-925103-12-2025 Evaluation note* Diagnosis Onset Date Resolution Status Admit Date 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, 2024 8:13am Cancer associated pain acute [facility] 2024 8:22am Nausea acute July 26 8:22am 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, 2024 8:22am Cancer associated pain acute [facility] 2024 7:29am Constipation acute August 02, 2024 7:29am Squamous cell carcinoma of oropharynx acute August 02, 2024 7:29am Thrush, oral acute August 02, 2024 7:29am Cancer associated pain acute [facility] 2024 7:51am Constipation acute August 09, 2024 7:51am Nausea acute August 09 7:51am Squamous cell carcinoma of oropharynx acute August 09, 2024 7:51am Squamous cell carcinoma of oropharynx acute August 09, 2024 9:23am Cancer associated pain acute Ap ril 2024 7:59am Constipation acute August 16 7:59am Nausea acute August 16 7:59am Squamous cell carcinoma of oropharynx acute August 16, 2024 7:59am [facility] Work Phone: 1([phone]) 213-649303-12-2025 Evaluation note* Diagnosis Onset Date Resolution Status Admit Date 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, 2024 8:13am Cancer associated pain acute [facility] 2024 8:22am Nausea acute July 26 8:22am 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, 2024 8:22am Cancer associated pain acute [facility] 2024 7:29am Constipation acute August 02, 2024 7:29am Squamous cell carcinoma of oropharynx acute August 02, 2024 7:29am Thrush, oral acute August 02, 2024 7:29am Cancer associated pain acute [facility] 2024 7:51am Constipation acute August 09, 2024 7:51am Nausea acute August 09 7:51am Squamous cell carcinoma of oropharynx acute August 09, 2024 7:51am Squamous cell carcinoma of oropharynx acute August 09, 2024 9:23am Cancer associated pain acute Ap ril 2024 7:59am Constipation acute August 16 025 7:59am Nausea acute August 16 7:59am Squamous cell carcinoma of oropharynx acute August 16, 2024 7:59am Fever acute August 20 7:35pm Immunosuppression acute August 202024 7:35pm Pneumonia acute August 20 7:35pm [facility] Work Phone: 1([phone]) [phone] Evaluation note* Diagnosis Onset Date Resolution Status Admit Date 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, 2024 8:13am Cancer associated pain acute [facility] 2024 8:22am Nausea acute July 26 8:22am 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, 2024 8:22am Cancer associated pain acute [facility] 2024 7:29am Constipation acute August 02, 2024 7:29am Squamous cell carcinoma of oropharynx acute August 02, 2024 7:29am Thrush, oral acute August 02, 2024 7:29am Cancer associated pain acute [facility] 2024 7:51am Constipation acute August 09, 2024 7:51am Nausea acute August 09 7:51am Squamous cell carcinoma of oropharynx acute August 09, 2024 7:51am Squamous cell carcinoma of oropharynx acute August 09, 2024 9:23am Cancer associated pain acute ril 2024 7:59am Constipation acute August 16 025 7:59am Nausea acute August 16 7:59am Squamous cell carcinoma of oropharynx acute August 16, 2024 7:59am Fever acute August 20 7:35pm Immunosuppression acute August 202024 7:35pm Pneumonia acute August 20 7:35pm Squamous cell carcinoma of oropharynx acute August 20, 2024 7:35pm [facility] Work Phone: 1([phone]) 343-789003-12-2025 Evaluation note* Diagnosis Onset Date Resolution Status Admit Date 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, 2024 8:13am Cancer associated pain acute [facility] 2024 8:22am Nausea acute July 26 8:22am 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, 2024 8:22am Cancer associated pain acute [facility] 2024 7:29am Constipation acute August 02, 2024 7:29am Squamous cell carcinoma of oropharynx acute August 02, 2024 7:29am Thrush, oral acute August 02, 2024 7:29am Cancer associated pain acute [facility] 2024 7:51am Constipation acute August 09, 2024 [...] of oropharynx acute September 11, 2024 9:55am [facility] Work Phone: 1([phone] 601-378303-12-2025 Evaluation note* Diagnosis Onset Date Resolution Status Admit Date 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, 2024 8:13am Cancer associated pain acute [facility] 2024 8:22am Nausea acute July 26 8:22am 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, 2024 8:22am Cancer associated pain acute [facility] 2024 7:29am Constipation acute August 02, 2024 7:29am Squamous cell carcinoma of oropharynx acute August 02, 2024 7:29am Thrush, oral acute August 02, 2024 7:29am Cancer associated pain acute Ma rc 2024 7:51am Constipation acute August 09, 2024 [...] :36pm Thrush, oral acute September 26 2:36pm [facility] Work Phone: 1([phone]) 294-325903-05-2025 NoteUTP Cardiovascular Medicine [facility] Patient here for follow-up after his [...] a provider in 3 months. Boy Buitrago APRN-[facility] Cardiovascular MedicineOhio[facility]02-26-2025 Progress noteUn[place] [address] Cancer Center Note Signed Patient: Jeremie Bennett MR#: [id number] : 1940 Acct:[id number] Age/Sex: 83 / M Type: REG AMB [...] by IHC was equivocal. As per the [facility] tumor board recommendation is either doing extensive [...] his week 1 of cisplatin. Labs at [facility] on 07/03/24 revealed hgb 13.3, cr is 1.0. He is having his labs here today.He had his pacemaker placed on 07/10/24 in [place]. 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 He is [...] positive squamous cell carcinoma. Tumor board at [facility] in [facility] and the recommended concurrent chemoradiation. Past [...] with concurrent chemoradiation. Since he lives in [place] he was referred by Dr. Mary Schneider from ENT at [facility] to our medical oncology and radiation oncology at [facility]. He is referred to medical oncology for [...] his week 1 of cisplatin. Labs at [facility] on 07/03/24 revealed hgb 13.3, cr is 1.0. He is having his labs here today.He had his pacemaker placed on 07/10/24 in [place]. Rest of 14 point systems were reviewed [...] PO QAM aspirin 81 mg PO DAILY nyqagil-qwwtdynnkyfqh-shtxgraw 250-250-65 mg (Excedrin Migraine) 1 tab PO [...] other concerns voiced at time of intake. [facility] Medical History Medical History (Updated 07/06/24 [...] (end stage renal disease) [facility]: Diagnosed with Cancer Lymphoma [...] MD DD/ 0837 Signed By: 07/12/24 0920 [facility]02-24-2025 NotePACEMAKER GENERATOR REPLACEMENT PROCEDURE NOTE DATE OF [...] x 2 weeks Stacey Patel MD Cardiac ElectrophysiologyOhioHealth [facility]02-20-2025 Progress note Author Debora Wild [facility] Note Date/Time July 06, 2024 11:40am [facility] [address] [place] [address] Palliative Medicine Encounter Patient: Jeremie Bennett MR#: [id number] : 1940 Acct:[id number] Age/Sex: 83 / M Copies to: RAYSHAWN [...] tablet 81 mg PO DAILY 06/14/24 06/22/24 fnjaaen-odeipiitodneo-kynbqdcj 250 1 tab PO Q4-6H PRN pain [...] (psyllium husk)) Is patient having pain?: [facility] (Updated 07/06/24 @ 09:33 by [...] Alcohol Substance Abuse Comment: rare alcohol use Carney Symptom Assessment Scale Pain: intermittent scratchy throat/ [...] Jeremie: Kaya moved her from [place] 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 Exam Exam General - A&O, accompanied by [...] recorder, note dictated by Debora Wild APRN, INSULATION CUTTER AND FORMERRosemaryC ACHPN Dictated By: Debora Wild APRN DD/ 0858 Signed By: <Electronically signed by RAYSHAWN Wild> 07/06/24 114 [facility] Work Phone: 1(588) 413-191202-20-2025 [place] [address] Palliative Medicine Encounter Patient: Jeremie Bennett MR#: [id number] : 1940 Acct:[id number] Age/Sex: 83 / M Copies to: RAYSHAWN [...] tablet 81 mg PO DAILY 06/14/24 06/22/24 rnbmeac-kbimvrvgoyewo-zknqhfhc 250 1 tab PO Q4-6H PRN pain [...] (psyllium husk)) Is patient having pain?: No [facility] History (Updated 07/06/24 @ 09:33 by [...] Alcohol Substance Abuse Comment: rare alcohol use Carney Symptom Assessment Scale Pain: intermittent scratchy throat/ [...] Jeremie: Kaya moved her from [place] Exam Exam General - A&O, accompanied by [...] recorder, note dictated by Debora Wild APRN, JESSIC ACHPN Dictated By: Debora Wild APRN DD/ 0858 Signed By: 07/06/24 1140 [facility]02-18-2025 NoteNurse Consultation Note Reason for Visit patient [...] PRN, 1 refills fluticasone Nasal 0.05 mg/inh [place], See Instructions furosemide 20 mg Tab, 20 [...] influenza virus vaccine, inactivated 04/12/2023 Recorded SARSCoV2 mRNA(rfyulvguy-dvkk-kykcxf) vac 11/25/2021 Recorded SARS-CoV-2 (COVID-19) mRNA BNT-162b2 vax 03/06/2021 Recorded 2022-11-03: TPV80 influenza virus vaccine, inactivated 02/18/2021 Recorded SARS-CoV-2 (COVID-19) mRNA BNT-162b2 vax 06/27/2020 Recorded SARS-CoV-2 (COVID-19) Ad26 vaccine 06/27/2020 Recorded SARS-CoV-2 (COVID-19) mRNA BNT-162b2 vax 06/06/2020 Recorded SARS-CoV-2 (COVID-19) Ad26 vaccine 06/06/2020 Recorded influenza virus vaccine, inactivated 02/14/2020 Recorded influenza, unspecified formulation 01/22/2018 Recorded pneumococcal 13-valent vaccine 01/30/2014 [facility] NoteNurse Consultation Note Reason for Visit [...] PRN, 1 refills fluticasone Nasal 0.05 mg/inh [place], See Instructions furosemide 20 mg Tab, 20 [...] influenza virus vaccine, inactivated 04/12/2023 Recorded SARSCoV2 mRNA(pshmekzut-safc-pulxwi) vac 11/25/2021 Recorded SARS-CoV-2 (COVID-19) mRNA BNT-162b2 vax 03/06/2021 Recorded 2022-11-03: TPV80 influenza virus vaccine, inactivated 02/18/2021 Recorded SARS-CoV-2 (COVID-19) mRNA BNT-162b2 vax 06/27/2020 Recorded SARS-CoV-2 (COVID-19) Ad26 vaccine 06/27/2020 Recorded SARS-CoV-2 (COVID-19) mRNA BNT-162b2 vax 06/06/2020 Recorded SARS-CoV-2 (COVID-19) Ad26 vaccine 06/06/2020 Recorded influenza virus vaccine, inactivated 02/14/2020 Recorded influenza, unspecified formulation 01/22/2018 Recorded pneumococcal 13-valent vaccine 01/30/2014 [facility] History of Present illness Narrative* LINWOOD Morgan - 06/23/2024 4:00 PM EST History: Patient was referred for an audiological evaluation. A baseline hearing exam was recommended prior to chemo treatment. Patient sees an ENT at [facility]. Patient is aware of hearing loss, wearing [...] function Impressions: Results to Dr. Faustin at [facility] per patient. documented in this encounterSaint [place] University [id number] History of Present illness Narrative* Matteo Bell MD - 06/20/2024 3:15 PM EST Images from the original note were not included. Jeremie Bennett 1940 Jeremie Bennett is a 83 y.o. male presents with chief complaint of Consult (Port - Ref Dr LAMAS Tonguecanifeanyi/Having pacemaker generator change on 07-10-24 / DC cardiology Dr Patel.) HPI: Mr. 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 Migraine headache ([facility]/HCC) Mixed incontinence 01/27/2024 Other specified disorders of synovium, right ankle and foot Pain management Pain of upper abdomen 04/03/2022 Paronychia of great toe bilateral Peptic ulcer 04/03/2022 Personal history of other medical treatment 04/2018 body map scanned in for biopsies and trtm Prostate cancer ([facility]) Right flank pain 04/03/2022 Sinus tarsi syndrome of right foot Sleep apnea Toe pain, right Type 2 diabetes mellitus with diabetic neuropathy ([facility]/HCC) Ventricular tachycardia ([facility]) Social History Tobacco Use Smoking status: Former [...] 2005 ablation OTHER SURGICAL HISTORY 2007 sphincterotomy NM CHOLECYSTECTOMY 02/2020 Laparoscopic Cholecystectomy - [place] NM IMPLANT ARTIFICIAL SPHINCTER 2017 PROSTATE 2000 TONSILLECTOMY [...] placed on the right. documented in this encounterSaint Louis University [id number] Progress note Author Talib HeAcutecare Health Systemethan [facility] Note Date/Time June 14, 2024 1 1:06am [facility] [place] [address] Cancer Center Note Signed Patient: Jeremie Bennett MR#: [id number] : 1940 Acct:[id number] Age/Sex: 83 / M Type: REG AMB [...] by IHC was equivocal. 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 He is [...] positive squamous cell carcinoma. Tumor board at [facility] in [place] and the recommended concurrent chemoradiation. [...] with concurrent chemoradiation. Since he lives in [place] he was referred by Dr. Mary Schneider from ENT at [facility] to our medical oncology and radiation oncology at [facility]. He is referred to medical oncology for [...] PO DAILY aspirin 81 mg PO DAILY pqqdjie-krwoxaerkavwm-ybbwxnvk 250-250-65 mg (Excedrin Migraine) 1 tab PO [...] card, magnet, caregiver resource list, [facility] nutrition guide, and cancer rehabilitation pamphlet provided [...] to have pace maker replaced 07/10/2024 at [facility]. [facility] Medical History Medical History (Updated 06/14/24 [...] emphysema Hypertension Heart disease Sister [facility] Problem: Diagnosed with Cancer Social History Social [...] signed by Talib Faustin MD> 06/14/24 1106 [facility] Work Phone: 1([phone]) 381-816901-29-2025 Evaluation note* Diagnosis Onset Date Resolution Status Admit Date Squamous cell carcinoma of oropharynx acute June 14 9:25am Tongue cancer acute May 9:25am Squamous cell carcinoma of oropharynx acute June 14 10:28am [facility] Work Phone: 1([phone]) 413-161701-29-2025 Evaluation note* Diagnosis Onset Date Resolution Status Admit Date Squamous cell carcinoma of oropharynx acute June 14 9:25am Tongue cancer acute May 9:25am Squamous cell carcinoma of oropharynx acute June 14 10:28am Encounter for palliative care acute July 06, 2024 8:00am 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 06 025 8:00am [facility] Work Phone: 1([phone]) 358-225701-29-2025 Evaluation note* Diagnosis Onset Date Resolution Status Admit Date Squamous cell carcinoma of oropharynx acute June 14 9:25am Tongue cancer acute May 9:25am Squamous cell carcinoma of oropharynx acute June 14 10:28am Encounter for palliative care acute July 06, 2024 8:00am 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 06 025 8:00am Cancer associated pain acute Fe bru2024 7:36am Nausea acute July 12, 2024 7:36am 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 12, 025 7:36am 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 12 025 8:29am Tongue cancer acute July 122024 8:29am [facility] Work Phone: 1([phone]) [phone] [facility] [place] [address] Cancer Center Note Signed Patient: Jeremie Bennett MR#: [id number] : 1940 Acct:[id number] Age/Sex: 83 / M Type: REG AMB [...] by IHC was equivocal. 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 He is [...] positive squamous cell carcinoma. Tumor board at [facility] and the recommended concurrent chemoradiation. Past [...] with concurrent chemoradiation. Since he lives in [place] he was referred by Dr. Mary Schneider from ENT at [facility] to our medical oncology and radiation oncology at [facility]. He is referred to medical oncology for [...] PO DAILY aspirin 81 mg PO DAILY krcrnqu-wdlwbkvzziukq-levxprit 250-250-65 mg (Excedrin Migraine) 1 tab PO [...] card, magnet, caregiver resource list, [facility] nutrition guide, and cancer rehabilitation pamphlet provided [...] to have pace maker replaced 07/10/2024 at [facility]. [facility] Medical History Medical History (Updated 06/14/24 [...] MD DD/ [id number] Signed By: 06/14/24 1106 [facility]01-20-2025 Hospital Discharge instructions* Discharge Instructions* Bob Larson [...] questions related to your procedure: Please call [phone] between the hours of 7:00am-5:00pm Wednesday through Wednesday. Please call [phone] after 5:00pm and on weekends and holidays. In the event of an emergency call 911 or go to your nearest emergency room. documented in this [facility] Work Phone: 1(893) 427-916601-20-2025 Miscellaneous Notes* Post-Procedure Note - Juan Albright [...] PACS Procedure performed by: Juan Albright MD Superior Court Justice(s): Dr. Gaby Perez MD Estimated Blood Loss [...] Albright MD, PGY-6 Interventional Radiology IR pager: [phone] NON-Urgent production operator weekends and after hours weekdays (5pm - 5am) IR pager: [phone] Urgent & emergent production operator weekends and after hours weekdays (5pm-7am) IR pager: [phone] * Pre-Procedure Note - Juan Albright MD [...] by mouth once daily., Disp: , Rfl: ypxvvldsig-rzcxopyyvydfq-mbel 50-325-40 mg tablet, Take 1 tablet by [...] been discussed with the patient and/or their outside dealer sales representative. All questions answered and they agree to proceed. Juan Albright MD, PGY-6 Vascular & Interventional Radiology IR pager: [phone] NON-Urgent production operator weekends and after hours weekdays (5pm - 5am) IR pager: [phone] Urgent & emergent production operator weekends and after hours weekdays (5pm-7am) IR pager: [phone] documented in [facility] Work Phone: 1(695) 902-300301-20-2025 Note* Post-Procedure Note - Juan Albright MD [...] PACS Procedure performed by: Juan Albright MD Superior Court Justice(s): Dr. Gaby Perez MD Estimated Blood Loss [...] Albright MD, PGY-6 Interventional Radiology IR pager: [phone] NON-Urgent production operator weekends and after hours weekdays (5pm - 5am) IR pager: [phone] Urgent & emergent production operator weekends and after hours weekdays (5pm-7am) IR pager: [phone] [facility] Work Phone: 1(379) 374-606101-20-2025 Note* Pre-Procedure Note - Juan Albright MD [...] by mouth once daily., Disp: , Rfl: gjhcqmdkda-kwxkzativuvvz-lftu 50-325-40 mg tablet, Take 1 tablet by [...] been discussed with the patient and/or their outside dealer sales representative. All questions answered and they agree to proceed. Juan Albright MD, PGY-6 Vascular & Interventional Radiology IR pager: [phone] NON-Urgent production operator weekends and after hours weekdays (5pm - 5am) IR pager: [phone] Urgent & emergent production operator weekends and after hours weekdays (5pm-7am) IR pager: [phone] [facility] Work Phone: 1(483) 274-148801-14-2025 History of Present illness Narrative* Mary Schneider MD - 05/30/2024 11:45 AM EST HEAD AND NECK SURGERY FOLLOW UP [facility] [place] Referring Provider: Dr. Ham HPI I had [...] lymph node Procedure Note: Diagnostic Flexible Laryngoscopy (55066) Indication: patient symptoms requiring evaluation of pharyngeal/laryngeal/hypopharyngeal [...] proceed with concurrent chemoradiation. He lives in [place], referrals to med onc and rad onc placed today to be setup locally at [facility]. I have also reached out to Dr Gray - He will need iris dx testing done prior to starting treatment - I will follow up the biopsy and call him with results - I will see him after treatment for cancer surveillance Mary Schneider MD 24 modifier used due to extensive discussion and coordination of cancer treatment documented in this encounterSt. [facility] Work Phone: 1(791) 666-329212-26-2024 Hospital Discharge instructions* Discharge Instructions* Jessica Carreon [...] to your nearest ED. documented in this encounterSt. [facility] Work Phone: 1(763) 793-908412-26-2024 Note* Op Note - Mary Schneider MD - 05/11/2024 7:52 AM EST GLOSSECTOMY, ROBOT-ASSISTED, ORAL APPROACH Operative Note Date: 05/11/2024 OR Location: 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] Procedures Direct Laryngoscopy 82126 - NM LARYNGOSCOPY W/WO TRACHEOSCOPY DX EXCEPT Bronchoscopy 02379 - NM [facility] INCL FLUOR GDNCE DX W/CELL WASHG SPX Esophagoscopy 82606 - NM ESOPHAGOSCOPY FLEXIBLE TRANSORAL DIAGNOSTIC Surgeons Panel 1: * Mary Schneider - Primary Panel 2: * Mary Schneider - Primary Resident/Fellow/Other Superior Court Justice: Surgeons and Role: Panel 1: * Riana Vela PA-C - Resident - Assisting Staff: Restaurant Area Director: Jameel Camargo Person: Simon Camargo Person: Reggie Anesthesia Staff: Anesthesiologist: Gabo Munoz MD Personnel Training Officer: Candice Aceves MD; Delvis Santana MD Procedure [...] scrubbed for the entire procedure. Mary Schneider [facility] Work Phone: [phone]) [phone] Miscellaneous Notes* Op Note - Mary Schneider MD - 05/11/2024 7:52 AM EST GLOSSECTOMY, ROBOT-ASSISTED, ORAL APPROACH Operative Note Date: 05/11/2024 OR Location: 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] Procedures Direct Laryngoscopy 43970 - NM LARYNGOSCOPY W/WO TRACHEOSCOPY DX EXCEPT Bronchoscopy 12366 - NM [facility] INCL FLUOR GDNCE DX W/CELL WASHG SPX Esophagoscopy 25062 - NM ESOPHAGOSCOPY FLEXIBLE TRANSORAL DIAGNOSTIC Surgeons Panel 1: * Mary Schneider - Primary Panel 2: * Mary Schneider - Primary Resident/Fellow/Other Superior Court Justice: Surgeons and Role: Panel 1: * Riana Vela PA-C - Resident - Assisting Staff: Restaurant Area Director: Jameel Camargo Person: Simon Camargo Person: Reggie Anesthesia Staff: Anesthesiologist: Gabo Munoz MD Personnel Training Officer: Candice Aceves MD; Delvis Santana MD Procedure [...] entire procedure. Mary Schneider documented in this [facility] Work Phone: 1(335) 380-175012-26-2024 History and physical note* Jessica Carreon MD [...] Schneider MD at 05/11/2024 6:[address] [facility] Work Phone: 1([phone]) 283-312612-26-2024 History and physical note* Jessica Carreon MD [...] with biopsies, possible tonsillectomy and BOT resection. Jessiac Carreon MD Cosigned by Mary Schneider MD at 05/11/2024 6:34 AM EST documented in this [facility] Work Phone: 1(278) 970-619612-24-2024 History of Present illness Narrative* Mary Guevara - 05/09/2024 10:02 AM EST Pharmacy Medication History Review Jeremie Bennett is a 83 y.o. male who is planned to be admitted for Malignant neoplasm of floor of mouth. Pharmacy called the patient prior to their scheduled procedure and reviewed the patient's axsrh-jj-eaqkjwdkv medications for accuracy. 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 Patient states they are taking #1 tablet of metformin XR 500mg once daily. L.F. 02/24/24 #200/100d (prescription states #1BID) Patient states they are taking #1 tablet of rosuvastatin 10mg daily. L.F. 05/31/23 #90/90d. There is no recent fill history to confirm Mary Ismael [facility] Please reach out via Secure Chat for questions documented in this encounterSt. [facility] of [facility] Work Phone: [phone]) 856-681212-10-2024 NoteUT Electrophysiology Consult Note [place] Cardiology [facility] Reason for visit: Device at [facility] HPI: Jeremie Bennett is a 83 y.o. year old with past medical history of hypertension, hyperlipidemia CAD was noted to have a pacemaker placed by Dr. Shi for ?SND which is approaching [facility]. He has previously been seen by and [...] ECG Bradycardia Coronary artery disease Diabetes mellitus ([facility]) Heart valve disease Hyperlipidemia VT (ventricular tachycardia) ([facility]) PSH: Past Surgical History: Procedure Laterality Date ABLATION OF DYSRHYTHMIC FOCUS CARDIAC CATHETERIZATION INSERT / REPLACE / REMOVE PACEMAKER SH: Social Determinants of Health Tobacco Use: Medium Risk (05/11/2024) [facility] Patient History Smoking Tobacco Use: Former Smokeless Tobacco Use: Former Passive Exposure: Not on file Alcohol Use: Not on file Financial Resource Strain: Not on file Food Insecurity: Not on file Transportation Needs: Not on file Physical Activity: Not on file Stress: Not on file Social Connections: Not on file Intimate Partner Violence: Unknown (07/08/2023) DC Safety & Environment Fear of Current or Ex-Partner: Not on file Emotionally Abused: Not on file Physically Abused: Not on file Sexually Abused: Not on file Physically or Sexually Abused: Not on file Depression: Not at risk (04/07/2024) [facility] PHQ-2 Patient Health Questionnaire-2 Score: 0 [...] , T3 TO (more content not included)...[facility]12-02-2024 NotePatient Education Nutrition BMI for Adults [...] for Disease Control and Prevention: cdc.gov ??? [place] Heart Association: heart.org ??? National Heart, Lung, and Blood [place]: nhlbi.nih.gov This information is not intended to replace advice given to you by your health care provider. Make sure you discuss any questions you have with your health care provider. Document Revised: 01/21/2023 Document Reviewed: 01/14/2023 [employer] Patient Education ? 2023 [employer] 04-07-2024 History of Present illness Narrative* Mary Schneider MD - 04/07/2024 10:45 AM EST HEAD AND NECK SURGERY CONSULT [facility] Referring Provider: Dr. Ham HPI I had [...] lymph node Procedure Note: Diagnostic Flexible Laryngoscopy (12126) Indication: patient symptoms requiring evaluation of pharyngeal/laryngeal/hypopharyngeal [...] for this, has a pacemaker and seeing hay buckler soon. Will follow up biopsy and call him with the results Mary Schneider MD documented in this [facility] Work Phone: [phone]) 591-654311-13-2024 History of Present illness Narrative* Luc Ham MD - 03/29/2024 10:20 AM EST Subjective Patient ID: Jeremie Bennett is a 83 y.o. male who presents for Mouth Lesions (Follow up PET [facility] 03/27/24) Pet scan reviewed and there [...] 29.0-29.9,adult 01/27/2024 Cardiac dysrhythmia 04/03/2022 Ventricular tachycardia ([facility]) 01/27/2024 Carpal tunnel syndrome, left 01/27/2024 Carpal tunnel syndrome, right 01/27/2024 Cervical lymphadenopathy 01/27/2024 Spondylosis of cervical spine 01/27/2024 Cervical vertebral fusion 04/03/2022 Spondylosis of lumbar spine 01/27/2024 Chronic venous insufficiency 01/27/2024 Colon polyp 01/27/2024 Type 2 diabetes mellitus ([facility]) 01/27/2024 Type 2 diabetes mellitus without complication, without long-term current use of insulin ([facility]) 04/14/2023 Diabetic autonomic neuropathy associated with type 2 diabetes mellitus ([facility]) 04/14/2023 Diabetic peripheral neuropathy associated with type 2 diabetes mellitus ([facility]) 01/27/2024 Diverticulosis 01/27/2024 Dysphagia 04/14/2023 Essential hypertension ([facility]) 04/03/2022 Excessive daytime sleepiness 01/27/2024 FH: stomach cancer 04/14/2023 Chronic GERD 01/27/2024 GERD with apnea 01/27/2024 Glaucoma ([facility]) 04/03/2022 Hemorrhoids 01/27/2024 History of colon polyps 01/27/2024 History of malignant neoplasm of prostate 04/03/2022 K[place]K (hard of hearing) 04/03/2022 Hypercholesterolemia ([facility]) 04/03/2022 Hyperlipidemia ([facility]) 04/03/2022 Insomnia 04/03/2022 Internal derangement of right knee 01/27/2024 Irregular bowel habits 04/14/2023 Lump on neck 04/14/2023 Migraines ([facility]) 04/03/2022 Aortic valve regurgitation 04/26/2019 Mitral valve regurgitation 04/26/2019 Neuropathy 04/03/2022 NPH (normal pressure hydrocephalus) ([facility]) 04/03/2022 Central sleep apnea 01/27/2024 Obstructive sleep [...] CERVICAL FUSION 2015 C3-C4-C5 CHOLECYSTECTOMY HERNIA REPAIR 2002 INSERT / REPLACE / REMOVE PACEMAKER 2015 pacemaker insertion OTHER SURGICAL HISTORY 2005 ablation OTHER SURGICAL HISTORY 2007 sphincterotomy NM CHOLECYSTECTOMY 02/2020 Laparoscopic Cholecystectomy - [place] NM IMPLANT ARTIFICIAL SPHINCTER 2017 PROSTATE 2000 TONSILLECTOMY 1970 Allergies Allergen Reactions Niacin Itching and Unknown Wound Dressing Adhesive Unknown Current Outpatient Medications on File Prior to Visit Medication Sig Dispense Refill amLODIPine (Norvasc) 5 MG tablet Take 5 mg by mouth in the morning. aspirin 81 MG EC tablet Take 81 mg by mouth in the morning. mfkwmvbxpy-afissbdczrikc-cfmmrnfo 50-325-40 MG tablet Take 1 tablet by [...] completed for surveillance exams. documented in this encounterSaint Louis University HospitalUdmcqxzqns56-40-0243 History of Present illness Narrative* Kandi Rodriguez, [...] PATIENT PRESENTS WITH AN IMPLANTABLE OR ATTACHED FRANKFURTER INSPECTOR: No CREATININE: No results found for: CREAT [...] radiation safety can be found usingthis link: [email or web address]%20Nuclear%20Medicine%[email or web address] SIGNATURE: FLORY Rodriguez) PATIENT NAME: Jeremie Bennett DATE: March 27, 2024 TIME: 10:14 AM PAGER/CONTACT #: documented in this encounterC[facility]-2024 NoteHNO ID: [id number] Author: KANDI RODRIGUEZ RT (R) Service: ? [...] PATIENT PRESENTS WITH AN IMPLANTABLE OR ATTACHED FRANKFURTER INSPECTOR: No CREATININE: No results found for: CREAT [...] safety can be found using this link: [email or web address] 20Diagnostic%20Nuclear%20Medicine%[email or web address] SIGNATURE: RT Jennifer(R) PATIENT NAME: Jeremie Bennett DATE: March 27, 2024 TIME: 10:14 AM PAGER/CONTACT #:[facility]10-23-2024 History of Present illness Narrative* Luc [...] 29.0-29.9,adult 01/27/2024 Cardiac dysrhythmia 04/03/2022 Ventricular tachycardia ([facility]) 01/27/2024 Carpal tunnel syndrome, left 01/27/2024 Carpal tunnel syndrome, right 01/27/2024 Cervical lymphadenopathy 01/27/2024 Spondylosis of cervical spine 01/27/2024 Cervical vertebral fusion 04/03/2022 Spondylosis of lumbar spine 01/27/2024 Chronic venous insufficiency 01/27/2024 Colon polyp 01/27/2024 Type 2 diabetes mellitus ([facility]) 01/27/2024 Type 2 diabetes mellitus without complication, without long-term current use of insulin ([facility]) 04/14/2023 Diabetic autonomic neuropathy associated with type 2 diabetes mellitus ([facility]) 04/14/2023 Diabetic peripheral neuropathy associated with type 2 diabetes mellitus ([facility]) 01/27/2024 Diverticulosis 01/27/2024 Dysphagia 04/14/2023 Essential hypertension ([facility]) 04/03/2022 Excessive daytime sleepiness 01/27/2024 FH: stomach cancer 04/14/2023 Chronic GERD 01/27/2024 GERD with apnea 01/27/2024 Glaucoma ([facility]) 04/03/2022 Hemorrhoids 01/27/2024 History of colon polyps 01/27/2024 History of malignant neoplasm of prostate 04/03/2022 K[place]NUK (hard of hearing) 04/03/2022 Hypercholesterolemia ([facility]) 04/03/2022 Hyperlipidemia ([facility]) 04/03/2022 Insomnia 04/03/2022 Internal derangement of right knee 01/27/2024 Irregular bowel habits 04/14/2023 Lump on neck 04/14/2023 Migraines ([facility]) 04/03/2022 Aortic valve regurgitation 04/26/2019 Mitral valve regurgitation 04/26/2019 Neuropathy 04/03/2022 NPH (normal pressure hydrocephalus) ([facility]) 04/03/2022 Central sleep apnea 01/27/2024 Obstructive sleep [...] soiling 04/03/2022 Fecal urgency 04/14/2023 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 Lower abdominal pain 04/03/2022 Pain of [...] Diverticulitis GERD (gastroesophageal reflux disease) HTN (hypertension) ([facility]) Migraine headache ([facility]) Pain management Paronychia of great toe Personal history of other medical treatment 04/2018 Sinus tarsi syndrome of right foot Sleep apnea Toe pain, right Type 2 diabetes mellitus with diabetic neuropathy ([facility]) Past Surgical History: Procedure Laterality Date CARDIAC CATHETERIZATION 08/30/2019 CATARACT EXTRACTION Bilateral CERVICAL FUSION 2015 C3-C4-C5 CHOLECYSTECTOMY HERNIA REPAIR 2002 INSERT / REPLACE / REMOVE PACEMAKER 2015 pacemaker insertion OTHER SURGICAL HISTORY 2004 ablation OTHER SURGICAL HISTORY 2007 sphincterotomy NM CHOLECYSTECTOMY 02/2020 Laparoscopic Cholecystectomy - [place] NM IMPLANT ARTIFICIAL SPHINCTER 2017 PROSTATE 2000 TONSILLECTOMY 1970 Allergies Allergen Reactions Niacin Itching and Unknown Wound Dressing Adhesive Unknown Current Outpatient Medications on File Prior to Visit Medication Sig Dispense Refill amLODIPine (Norvasc) 5 MG tablet Take 5 mg by mouth in the morning. aspirin 81 MG EC tablet Take 81 mg by mouth in the morning. tvwgsxwefy-bgpumfoyxjfug-otbfghtl 50-325-40 MG tablet Take 1 tablet by [...] suspicious for the primary documented in this encounterSaint Louis University HospitalGhymaqskdt45-06-3834 Telephone encounter Note* Telephone Encounter - Antoinette Ham - 03/06/2024 11:18 AM EDT Pt is scheduled for 03/08/[address] Ham[address] [facility] HospitalIwvgqfizzn75-41-6986 Miscellaneous Notes* Telephone Encounter - Antoinette Ham - 03/06/2024 11:18 AM EDT Pt is scheduled for 03/08/[address] Ham. 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 BMI 29.0-29.9,adult 01/27/2024 Cardiac dysrhythmia 04/03/2022 Ventricular tachycardia ([facility]) 01/27/2024 Carpal tunnel syndrome, left 01/27/2024 Carpal tunnel syndrome, right 01/27/2024 Cervical lymphadenopathy 01/27/2024 Spondylosis of cervical spine 01/27/2024 Cervical vertebral fusion 04/03/2022 Spondylosis of lumbar spine 01/27/2024 Chronic venous insufficiency 01/27/2024 Colon polyp 01/27/2024 Type 2 diabetes mellitus ([facility]) 01/27/2024 Type 2 diabetes mellitus without complication, without long-term current use of insulin ([facility]) 04/14/2023 Diabetic autonomic neuropathy associated with type 2 diabetes mellitus ([facility]) 04/14/2023 Diabetic peripheral neuropathy associated with type 2 diabetes mellitus ([facility]) 01/27/2024 Diverticulosis 01/27/2024 Dysphagia 04/14/2023 Essential hypertension ([facility]) 04/03/2022 Excessive daytime sleepiness 01/27/2024 FH: stomach cancer 04/14/2023 Chronic GERD 01/27/2024 GERD with apnea 01/27/2024 Glaucoma ([facility]) 04/03/2022 Hemorrhoids 01/27/2024 History of colon polyps 01/27/2024 History of malignant neoplasm of prostate 04/03/2022 KIPNUK (hard of hearing) 04/03/2022 Hypercholesterolemia ([facility]) 04/03/2022 Hyperlipidemia ([facility]) 04/03/2022 Insomnia 04/03/2022 Internal derangement of right knee 01/27/2024 Irregular bowel habits 04/14/2023 Lump on neck 04/14/2023 Migraines ([facility]) 04/03/2022 Aortic valve regurgitation 04/26/2019 Mitral valve regurgitation 04/26/2019 Neuropathy 04/03/2022 NPH (normal pressure hydrocephalus) ([facility]) 04/03/2022 Central sleep apnea 01/27/2024 Obstructive sleep apnea 04/03/2022 Osteoarthritis 04/03/2022 Osteoarthritis of carpometacarpal (CMC) joint of left thumb 01/27/2024 Osteochondritis dissecans of right ankle 01/27/2024 Other specified disorders of synovium, right ankle and foot 01/27/2024 Pain in right ankle and joints of right foot 01/27/2024 Pancreatic cyst ([facility]) 04/14/2023 Paresthesia of both hands 01/27/2024 Edema of lower extremity 04/26/2019 Polyneuropathy associated with underlying disease ([facility]) 01/27/2024 Presence of cardiac pacemaker 03/14/2021 Prostate cancer ([facility]) 04/03/2022 Prostatitis 04/14/2023 Skin cancer 04/03/2022 Swollen lymph nodes 04/14/2023 Thoracic aortic ectasia ([facility]) 01/27/2024 Vitamin D deficiency 04/03/2022 Resolved Ambulatory Problems Diagnosis Date Noted Bloating 01/27/2024 Cellulitis of toe of left foot 01/27/2024 Cellulitis of toe of right foot 01/27/2024 Chest wall pain 04/03/2022 Gallstones 04/03/2022 COVID-19 11/10/2022 Entrapment of left ulnar nerve 01/27/2024 Entrapment of right ulnar nerve 01/27/2024 Fecal soiling 04/03/2022 Fecal urgency 04/14/2023 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 Lower abdominal pain 04/03/2022 Pain of [...] Diverticulitis GERD (gastroesophageal reflux disease) HTN (hypertension) ([facility]) Migraine headache ([facility]) Pain management Paronychia of great toe Personal history of other medical treatment 04/2018 Sinus tarsi syndrome of right foot Sleep apnea Toe pain, right Type 2 diabetes mellitus with diabetic neuropathy ([facility]) Past Surgical History: Procedure Laterality Date CARDIAC CATHETERIZATION 08/30/2019 CATARACT EXTRACTION Bilateral CERVICAL FUSION 2016 C3-C4-C5 CHOLECYSTECTOMY HERNIA REPAIR 2002 INSERT / REPLACE / REMOVE PACEMAKER 2015 pacemaker insertion OTHER SURGICAL HISTORY 2005 ablation OTHER SURGICAL HISTORY 2007 sphincterotomy NM CHOLECYSTECTOMY 02/2020 Laparoscopic Cholecystectomy - [place] NM IMPLANT ARTIFICIAL SPHINCTER 2017 PROSTATE 2000 TONSILLECTOMY 1970 Allergies Allergen Reactions Niacin Itching and Unknown Wound Dressing Adhesive Unknown Current Outpatient Medications on File Prior to Visit Medication Sig Dispense Refill amLODIPine (Norvasc) 5 MG tablet Take 5 mg by mouth in the morning. aspirin 81 MG EC tablet Take 81 mg by mouth in the morning. zimfazvvpc-kpttkqpgcjksq-hkznntcm 50-325-40 MG tablet Take 1 tablet by [...] a core needle bx documented in this encounterSaint Louis University [id number] History of Present illness Narrative* NILAY Morales [...] -he denies any weakness or trouble with optometry teacher Chronic back/neck pain -his neck pain has been about the same since last visit -he denies pain into the arms -he admits a few CORTEZ -he has 3-4 per month -CORTEZ located occipital -he is wanting an abortive medication -he was on Fiorcet and states this helped -Back pain in low back -he is seeing pain management , Dr. Robins in [place] -he is following up with them next [...] Oral, Daily aspirin 81 mg, Oral, Daily igbwijittt-ztvzxjnlfebdi-zmclmfhs 50-325-40 MG tablet 1 tablet, Oral, Every [...] Daily, Do not crush or chew. Lancets (JustParktouch ultrasoft) lancets 1 each, Other, As needed, [...] 2005 ablation OTHER SURGICAL HISTORY 2007 sphincterotomy NM CHOLECYSTECTOMY 02/2020 Laparoscopic Cholecystectomy - [place] NM IMPLANT ARTIFICIAL SPHINCTER 2017 PROSTATE 2000 TONSILLECTOMY [...] 2+ 2+ Patellar 2+ 2+ Coordination Right: Asagcr-bn-kkzd normal.Left: Pflzlr-lw-ghxf normal. Gait Casual gait is normal including [...] up in 6 months documented in this encounterSaint Louis University HospitalHehmexttgn75-62-0599 Telephone encounter Note* Telephone Encounter - Carlitos Beckman - 02/07/2024 9:29 AM EDT Images from the original note were not included. IPMN surveillance. Review OSH images and advise please [facility] MRI Cholanglogram Pancreatography 11/09/2023 [facility]09-23-2024 Miscellaneous Notes* Telephone Encounter - Carlitos Beckman - 02/07/2024 9:29 AM EDT Images from the original note were not included. IPMN surveillance. Review OSH images and advise please [facility] MRI Cholanglogram Pancreatography 11/09/2023 * Telephone Encounter [...] and it was completed in 12/2023 at [facility]. Our office will request results for Dr. Pringle's review. Follow up will be determined upon Dr. Pringle's review of results. documented in this encounterCleveland Clinic [facility]09-20-2024 Telephone encounter Note * Telephone Encounter - Carlitos Beckman - 02/04/2024 9:03 AM EDT Surveillance imaging completed at OSH for IPMN surveillance. [facility]09-18-2024 Telephone encounter Note* Telephone Encounter - Carlitos Beckman - 02/02/2024 8:57 AM EDT Call to patient to discuss plan of care. Surveillance imaging needed to evaluate pancreas cyst. Dx: IPMN Per Dr. Vaishali Pringle- recommended repeat MRI in 1 year Last imaging 02/17/2024 Orders placed: MRI Pancreas w/wo IVCON Patient's local GI ordered MRI and it was completed in 12/2023 at [facility]. Our office will request results for Dr. Pringle's review. Follow up will be determined upon Dr. Pringle's review of results. [facility]09-17-[facility] History of Present illness Narrative* Luc [...] History of malignant neoplasm of prostate 04/03/2022 [place]K (hard of hearing) 04/03/2022 Hypercholesterolemia ([facility]) 04/03/2022 Hyperlipidemia ([facility]/HCC) 04/03/2022 Insomnia 04/03/2022 Internal derangement of right knee 01/27/2024 Irregular bowel habits 04/14/2023 Lump on neck 04/14/2023 Migraines (CMS/HCC) 04/03/2022 Aortic valve regurgitation 04/26/2019 Mitral valve regurgitation 04/26/2019 Neuropathy 04/03/2022 NPH (normal pressure hydrocephalus) ([facility]/HCC) 04/03/2022 Central sleep apnea 01/27/2024 Obstructive sleep [...] reflux disease) HTN (hypertension) (CMS/HCC) Migraine headache ([facility]) Pain management Paronychia of great toe Personal [...] 2005 ablation OTHER SURGICAL HISTORY 2007 sphincterotomy NM CHOLECYSTECTOMY 02/2020 Laparoscopic Cholecystectomy - [place] NM IMPLANT ARTIFICIAL SPHINCTER 2017 PROSTATE 2000 TONSILLECTOMY 1970 Allergies Allergen Reactions Niacin Itching and Unknown Wound Dressing Adhesive Unknown Current Outpatient Medications on File Prior to Visit Medication Sig Dispense Refill amLODIPine (Norvasc) 5 MG tablet Take 5 mg by mouth in the morning. aspirin 81 MG EC tablet Take 81 mg by mouth in the morning. mtllpdxhes-mrtwqyriqhrzc-ceilshsb 50-325-40 MG tablet Take 1 tablet by [...] actual location and nature documented in this encounterSaint Louis University HospitalSekfnhnmkh02-10-1361 Hospital Discharge instructions Patient Education 09/17/2023 09:05:07 [...] grapefruit, pineapple, and nury. Vegetables Deep-fried vegetables. Mozambican fries. Any vegetables prepared with added fat. [...] provider. Document Revised: 11/11/2020 Document Reviewed: 11/11/2020 [facility] Patient Education 2022 [employer]. Follow Up Care 06/25/2023 12:06:59 With:Sammi CASON, NICOL Mccrary, [facility] Address: [address], [address] [place] [address]- [phone] When:3 months [facility] 01-15-2024 Evaluation note* Encounter [...] months. A prescription was sent to the [facility] for new supplies throughout the year. He [...] changes and we will continue to monitor. 15 Mike, 2024 Other Call if any que stions or problems. Patient is advised to work on healthy diet choices and appropriate servings, weight control, regular exercise as directed, and reduce fat intake. Use machine regularly, and keep up with mask changes as needed. Call if problems with mask toleration, increased sleepiness, or poor response to treatment. . [employer] Other 01-09-2024 Hospital Discharge instructions Patient Education [...] grapefruit, pineapple, and nury. Vegetables Deep-fried vegetables. Mozambican fries. Any vegetables prepared with added fat. [...] provider. Document Revised: 11/11/2020 Document Reviewed: 11/11/2020 [employer] Patient Education 2022 [employer]. Follow Up Care 02/25/2023 14:06:51 With:Anjali Ruby CNP Address: When:1 month [facility] [id number] Miscellaneous Notes* Telephone Encounter - Lolly Dumont - 04/05/2023 9:44 AM EST Received records from [facility]. Reports for imaging listed below scanned. Images pushed through 09/27/2019 US Right Upper Quad 03/31/2020 CT ABD/PEL US Right Upper Quad [facility] MRI Abdomen 02/22/2023 US Soft Tissue Head & Neck Received many misc. labs & ER reports Operative Note & pathology from Laparoscopic Cholecystectomy Patient seen 04/01, please review, thank you! documented in this encounterCleveland Clinic [facility]11-16-2023 Nurse Note* Debby Holland MA - [...] Drains: No documented in this encounterCleveland Clinic Mentor Hospital11-16-2023 History of Present illness Narrative* Vaishali [...] - Moderate documented in this encounterCleveland Clinic Mentor Hospital11-16-2023 NoteHNO ID: [id number] Author: Vaishali Pringle MD Service: ? Author [...] Pringle MD Medical De (more content not included)...[facility]10-25-2023 Hospital Discharge instructions Patient Education 03/10/2023 [...] Follow these instructions at home: Medicines Take qyqz-lca-uqtvdmo and prescription medicines only as told by [...] Watch your condition for any changes. Take ztlh-zvb-zzsmxno and prescription medicines only as told by [...] provider. Document Revised: 06/21/2020 Document Reviewed: 09/11/2019 [employer] Patient Education 2022 [employer]. Follow Up Care 03/09/2023 09:58:32 With:Anjali Ruby CNP Address: When:1 to 2 weeks Comments:Following EGD. [facility] 10-12-2023 Hospital Discharge instructions [...] Follow these instructions at home: Medicines Take zkjp-flr-asccjwx and prescription medicines only as told by your health care provider. If you were prescribed an antibiotic medicine, take it as told by your health care provider. Do notstop taking the antibiotic even if you start to feel better. Eating and drinking Make any diet changes as told by your health care provider. Work with a diet and nutrition services associate (dietitian) to create an eating plan that [...] provider. Document Revised: 12/21/2020 Document Reviewed: 12/21/2020 Gwen Patient Education 2022 [employer]. Follow Up Care 02/22/2023 16:17:47 With:Anjail Ruby CNP Address: When:3 months [facility] 09-15-2023 Evaluation note* Encounter [...] months. A prescription was sent to the [facility] for new supplies throughout the year. He [...] sleepiness, or poor response to treatment. . [employer] Other 08-29-2023 Hospital Discharge instructions Patient Education [...] including vitamins, herbs, eye drops, creams, and jxml-ylb-uugknzf medicines. Any problems you or family members [...] provider tells you to take them. Taking ktsd-lsd-jvdzsbo medicines, vitamins, herbs, and supplements. General instructions [...] provider. Document Revised: 04/27/2022 Document Reviewed: 12/24/2021 [employer] Patient Education 2022 [employer]. Follow Up Care 12/28/2022 08:53:11 With:Anjali Ruby CNP Address: When:1 to 2 weeks Comments:Following EGD/Colonoscopy. [facility] 05-30-2023 Evaluation note* Encounter [...] sleepiness, or poor response to treatment. . [employer] Other 05-09-2023 Hospital Discharge instructions Patient Education [...] managed at home with rest, fluids, and jyfb-pdo-avcdhop medicines. Serious symptoms may be treated in [...] water are not available, use alcohol-based hand wing commander. Make sure that all people in your [...] managed at home with rest, fluids, and xkva-dff-phvdsyw medicines. This information is not intended to replace advice given to you by your health care provider. Make sure you discuss any questions you have with your health care provider. Document Revised: 04/23/2022 Document Reviewed: 04/23/2022 [employer] Patient Education 2022 [employer]. Follow Up Care 09/22/2022 16:24:11 With:Demetrius Cooper Address: [address] [place] [address] Business (2) When:09/25/2022 18:12:09 [facility]05-09-2023 Evaluation note* Encounter Date Diagnosis Assessment Notes [...] no improvement in 2 to 3 days. [employer] Other 04-11-2023 NoteCONSULTATION CONSULTATION DATE: 08/25/2022 TO: [...] our patients to inform us about any nfdp-itk-abjvxxl medications or herbal remedies/nutritional supplements/alternative remedies. 2. [...] treatment options with their primary care provider.[facility] [place] [id number] Evaluation note * Encounter Date Diagnosis Assessment [...] symptoms if he does not take his rgsm-sfu-gfoyucj hypnotic, sleep hygiene issues may also be [...] neuropathy pain Jul, Coronary artery disease involving cocopah heart without angina pectoris, unspecified vessel or [...] he does have a defibrillator in place [employer] Other 03-09-2023 NoteCONSULTATION CONSULTATION DATE: 07/23/2022 HISTORY [...] gain authorization to hold the Plavix pre-procedure.[id number] NotePROCEDURE: XR ANKLE RT MIN 3 VIEWS COMPARISON: 08/22/2020 HISTORY: Pain of right ankle joint FINDINGS: BONES:No acute fracture or dislocation. Moderate enthesopathic spurring of the calcaneus. Degenerative changes with bone fragments along the inferior medial malleolus, stable. SOFT TISSUES:Negative. No visible soft tissue swelling. EFFUSION:None visible. OTHER: Negative. IMPRESSION: Stable degenerative changes Electronically authenticated by: ERWIN FALCON Date: 2022-07-22 10:37[id number] NotePROCEDURE: XR FOOT RT MIN 3 VIEWS [...] authenticated by: CLARISSA GARCIA Date: 2022-06-16 15:25[id number] Hospital Discharge instructions Patient Education 05/26/2022 13:46:25 [...] Address: [facility] [address] [place] [address]- Business (1) When: Unknown Comments:Office will call to schedule follow up [facility]08-11-2022 NoteCONSULTATION PROCEDURE DATE: 12/25/2021 PRE AND POSTOPERATIVE [...] will be followed up in the clinic.[facility] 12-25-2021 NoteCONSULTATION CONSULTATION DATE: 12/25/2021 This is [...] recently seen at an urgent care in [place] for left thumb pain and joint swelling. [...] in three months' time unless otherwise indicated.[id number] Evaluation note* Encounter Date Diagnosis Assessment Notes [...] will help you get into a specialist. [employer] Other Chidw complaint+Reason for visit Narrative* Chief Complaint N54.2 Self Referral [facility] Work Phone: Chisl complaint+Reason for visit Narrative* Chief Complaint N54.2 Self Referral [id number] m54.12 m54.2 [facility] Work Phone: Chioh complaint+Reason for visit Narrative* Chief Complaint N54.2 Self Referral [id number] [id number] m54.12 m54.2 isidro, 31-90 [facility] Work Phone: Discharge summary Author Zeke Brennan [facility] Note Date/Time August 21, 2024 2:14 pm [facility] [address] [place] [address] Discharge Summary Signed Patient: Jeremie Bennett MR#: [id number] : 1940 Acct:[id number] Age/Sex: 83 / M Adm Date: 5 Loc: Room: [address] [place] [address]: Zeke Brennan MD Copies to: [...] Continuity of Care Document Health Concerns: A [facility] screening has identified you as FRAIL or [...] Four Ways to Beat the Frailty Risk [email or web address]-[email or web address]-[email or web address]/dapy-rryqzs-ntst- igof-nb-ppsr-pfy-jpjdytv-lass Exam Physical Exam Vital Signs: Temp Pulse [...] % (Auto) 75.8, Lymph % (Auto) 9.0, Taney % (Auto) 13.6, Eos % (Auto) 1.0, Baso % (Auto) 0.6, Nucleat RBC Rel Count 0.1, Neut # (Auto) 4.7, Lymph # (Auto) 0.6 L, Taney # (Auto) 0.8, Eos # (Auto) 0.1, [...] Appearance Clear, Urine pH 5.5, Ur Specific [place] 1.017, Urine Protein Negative, Urine Glucose (UA) [...] % (Auto) 77.0, Lymph % (Auto) 10.5, Taney % (Auto) 11.3, Eos % (Auto) 0.7, Baso % (Auto) 0.5, Nucleat RBC Rel Count 0.2, Neut # (Auto) 5.7, Lymph # (Auto) 0.8 L, Taney # (Auto) 0.8, Eos # (Auto) 0.1, [...] signed by Zeke Brennan MD> 08/21/24 1414 [facility] Work Phone: Evaluation + Plan note No data available for this section [facility] Future Appointments Appointment Date:11/23/2022 09:00:00 AM Scheduled Provider:Demetrius Cooper MD Location:[facility] Appointment Type: Open [facility] Future Appointments Appointment Date:12/15/2022 12:00:00 PM Scheduled Provider:Anjali Ruby CNP Location:[facility] Appointment Type:[facility] Patient Appointment Date:05/31/2023 09:00:00 AM Scheduled Provider:Demetrius Cooper MD Location:[facility] Appointment Type: Open Appointment Date:11/08/2023 01:00:00 PM Scheduled Provider: Location:[facility] Appointment Type: Medicare Wellness Subsequent Future Scheduled Tests Laboratory* HgbA1c 11/23/22 * CBC w/ Auto Diff 11/23/22 * Comprehensive Metabolic Panel 11/23/22 * Lipid [facility]23[facility]22 [facility] Future Appointments Appointment Date:05/31/2023 09:00:00 AM Scheduled Provider:Demetrius Cooper MD Location:[facility] Appointment Type: Open Appointment Date:11/08/2023 01:00:00 PM Scheduled Provider: Location:[facility] Appointment Type: Medicare Wellness Subsequent Future Scheduled Tests Laboratory* HgbA1c 11/23/22 * CBC w/ Auto Diff 11/23/22 * Comprehensive Metabolic Panel 11/23/22 * Lipid Panel 11/23/22 [facility] Future Appointments Appointment Date:05/31/2023 09:00:00 AM Scheduled Provider:Demetrius Cooper MD Location:[facility] Appointment Type: Open Appointment Date:11/08/2023 01:00:00 PM Scheduled Provider: Location:[facility] Appointment Type: Medicare Wellness Subsequent Future Scheduled Tests Laboratory* HgbA1c 11/23/22 * CBC w/ Auto Diff 11/23/22 * Comprehensive Metabolic Panel 11/23/22 * Lipid Panel 11/23/22 Radiology* CT Abdomen w/ Contrast 01/12/23 [facility] evaluation + Plan note Future Appointments Appointment Date:05/03/2023 01:40:00 PM Scheduled Provider:Anjali Ruby CNP Location:[facility] Appointment Type:[facility] Follow Up Appointment Date:05/31/2023 09:00:00 AM Scheduled Provider:Demetrius Cooper MD [facility]: Open Appointment Date:11/08/2023 01:00:00 PM Scheduled Provider: Location:[facility] Appointment Type: Medicare Wellness Subsequent Future Scheduled Tests Laboratory* HgbA1c 11/23/22 * CBC w/ Auto Diff 11/23/22 * Comprehensive Metabolic Panel 11/23/22 * Lipid Panel 11/23/22 [facility] evaluation + Plan note Future Appointments Appointment Date:05/03/2023 01:40:00 PM Scheduled Provider:Anjali Ruby CNP Location:[facility] Appointment Type:[facility] Follow Up Appointment Date:05/31/2023 10:00:00 AM Scheduled Provider:Demetrius Cooper MD [facility] Type: Open Appointment Date:11/08/2023 01:00:00 PM Scheduled Provider: Location:[facility] Appointment Type:FM Medicare Wellness Subsequent Future Scheduled Tests Laboratory* HgbA1c 11/23/22 * CBC w/ Auto Diff 11/23/22 * Comprehensive Metabolic Panel 11/23/22 * Lipid Panel 11/23/22 [facility] evaluation + Plan note Future Appointments Appointment Date:05/03/2023 01:40:00 PM Scheduled Provider:Anjali Ruby CNP Location:[facility] Appointment Type:[facility] Follow Up Appointment Date:05/31/2023 10:00:00 AM Scheduled Provider:Demetrius Cooper MD [facility] Type: Open Appointment Date:11/08/2023 01:00:00 PM Scheduled Provider: Location:[facility] Appointment Type: Medicare Wellness Subsequent Diagnostic Tests Pending * O & P Exam, Routine 03/10/23 * Giardia lamblia, Direct Detection EIA 03/10/23 Future Scheduled Tests Laboratory* HgbA1c 11/23/22 * CBC w/ Auto Diff 11/23/22 * Comprehensive Metabolic Panel 11/23/22 * Lipid Panel 11/23/22 [facility] Future Appointments Appointment Date:05/31/2023 10:00:00 AM Scheduled Provider:Demetrius Cooper MD Location:[facility] Appointment Type: Open Appointment Date:06/25/2023 01:20:00 PM Scheduled Provider:Anjali Ruby CNP Location:[facility] Appointment Type:[facility] Follow Up Appointment Date:11/08/2023 01:00:00 PM Scheduled Provider: Location:[facility] Appointment Type:FM Medicare Wellness Subsequent Future Scheduled Tests Laboratory* HgbA1c 11/23/22 * CBC w/ Auto Diff 11/23/22 * Comprehensive Metabolic Panel 11/23/22 * Lipid Panel 11/23/22 [facility] Evaluation + Plan note Future Appointments Appointment Date:10/21/2023 03:00:00 PM Scheduled Provider:Inez Henderson MD Location:[facility] Appointment Type:[facility] Follow Up Appointment Date:11/08/2023 01:00:00 PM Scheduled Provider: Location:[facility] Appointment Type: Medicare Wellness Subsequent Appointment Date:11/29/2023 10:15:00 AM Scheduled Provider:Demetrius Cooper MD Location:[facility] Appointment Type: Open Future Scheduled Tests Laboratory* U Protein/Creat Ratio 05/31/23 * HgbA1c 11/23/22 * HgbA1c 05/31/23 * Microalbumin Level Urine 05/31/23 * CBC w/ Auto Diff 11/23/22 * Comprehensive Metabolic Panel 11/23/22 * Lipid Panel 11/23/22 [facility] Evaluation + Plan note Future Appointments Appointment Date:10/21/2023 03:00:00 PM Scheduled Provider:Inez Henderson MD Location:[facility] Appointment Type:[facility] Follow Up Appointment Date:11/08/2023 01:00:00 PM Scheduled Provider: Location:[facility] Appointment Type: Medicare Wellness Subsequent Appointment Date:11/29/2023 10:15:00 AM Scheduled Provider:Demetrius Cooper MD Location:[facility] Appointment Type: Open Diagnostic Tests Pending * Celiac Disease Comprehensive 09/17/23 Future Scheduled Tests Laboratory* U Protein/Creat Ratio 05/31/23 * HgbA1c 11/23/22 * HgbA1c 05/31/23 * Microalbumin Level Urine 05/31/23 * CBC w/ Auto Diff 11/23/22 * Comprehensive Metabolic Panel 11/23/22 * Lipid Panel 11/23/22 [facility] Future Appointments Appointment Date:11/08/2023 01:00:00 PM Scheduled Provider: Location:[facility] Appointment Type: Medicare Wellness Subsequent Appointment Date:11/29/2023 10:15:00 AM Scheduled Provider:Demetrius Cooper MD Location:[facility] Appointment Type: Open Appointment Date:03/23/2024 02:45:00 PM Scheduled Provider:Inez Henderson MD Location:[facility] Appointment Type:[facility] Follow Up Future Scheduled Tests Laboratory* U Protein/Creat Ratio 05/31/23 * HgbA1c 11/23/22 * HgbA1c 05/31/23 * Microalbumin Level Urine 05/31/23 * CBC w/ Auto Diff 11/23/22 * Comprehensive Metabolic Panel 11/23/22 * Lipid Panel 11/23/22 Radiology* MRI Cholangiogram Pancreatography (mrcp) 10/21/23 [facility] Evaluation + Plan note Future Appointments Appointment Date:11/29/2023 10:15:00 AM Scheduled Provider:Demetrius Cooper MD Location:[facility] Appointment Type: Open Appointment Date:03/23/2024 02:45:00 PM Scheduled Provider:Inez Henderson MD Location:[facility] Appointment Type:[facility] Follow Up Appointment Date:11/06/2024 02:30:00 PM [...] Lipid Panel 11/08/23 * Lipid Panel 11/23/22 [facility] Future Appointments Appointment Date:04/17/2024 10:00:00 AM Scheduled Provider:Demetrius Cooper MD Location:[facility] Appointment Type: Open Appointment Date:11/06/2024 02:30:00 PM Scheduled Provider: Location:[facility] Appointment Type:FM Medicare Wellness Subsequent Future Scheduled Tests Laboratory* U Protein/Creat Ratio 11/24/23 * U Protein/Creat Ratio 05/31/23 * HgbA1c 11/30/23 * HgbA1c 05/31/23 * Microalbumin Level Urine 11/24/23 * Microalbumin Level Urine 05/31/23 * Lipid Panel 11/08/23 Radiology* MRI Cholangiogram Pancreatography (mrcp) 03/23/24 [facility] Evaluation + Plan note Future Appointments Appointment Date:11/06/2024 02:30:00 PM Scheduled Provider: Location:[facility] Appointment Type:FM Medicare Wellness Subsequent Appointment Date:11/06/2024 03:30:00 PM Scheduled Provider:Demetrius Cooper MD Location:[facility] Appointment Type: Open Future Scheduled Tests Laboratory* U Protein/Creat Ratio 11/24/23 * U Protein/Creat Ratio 05/31/23 * HgbA1c 11/30/23 * HgbA1c 05/31/23 * Microalbumin Level Urine 11/24/23 * Microalbumin Level Urine 05/31/23 * Lipid Panel 11/08/23 [facility] evaluation + Plan note Future Appointments Appointment Date:11/21/2024 02:30:00 PM Scheduled Provider: Location:[facility] Appointment Type: Medicare Wellness Subsequent Appointment Date:11/21/2024 03:20:00 PM Scheduled Provider:Demetrius Cooper MD Location:[facility] Appointment Type: Open Diagnostic Tests Pending * Urine Culture 08/30/24 Future Scheduled Tests Laboratory* U Protein/Creat Ratio 11/24/23 * HgbA1c 11/30/23 * Microalbumin Level Urine 11/24/23 * Lipid Panel 11/08/23 [facility] evaluation noteNo Assessments Information Available [facility] assessment information available [facility] Work Phone: evaluation note* Diagnosis 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 [facility] Diagnosis 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 [facility] Diagnosis Onset Date Resolution Status Viral URI with cough noneact rosa Impacted cerumen, bilateral noneactive Central sleep apnea acute DM (diabetes mellitus) acute Essential hypertension acute Obstructive sleep apnea acut e [facility] Work Phone: evaluation note* Diagnosis 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 [facility] Diagnosis Migraine without aura and without status migrainosus, not intractable (CMS/HCC)- Primary Vertigo Dizziness and giddiness Lumbar radiculopathy Thoracic or lumbosacral neuritis or radiculitis, unspecified Neck pain Cervicalgia Degenerative disc disease, cervical Polyneuropathy Unspecified hereditary and idiopathic peripheral neuropathy documented in this encounter [facility]* Diagnosis LAD (lymphadenopathy) of right cervical region- Primary documented in this encounter 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 HealthcareEvaluation note* Diagnosis Malignant neoplasm [...] mouth, part unspecified documented in this encounter [facility] Work Phone: Evaluation note* Diagnosis Parotid mass- Primary Swelling, mass, or lump in head and neck documented in this encounter [facility] HealthcareEvaluation note* Diagnosis Malignant neoplasm [...] stated as uncontrolled documented in this encounter [facility] Work Phone: Evaluation note* 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 head, face, and neck documented in this encounter [facility] Work Phone: Evaluation note* Diagnosis Enlarged submental lymph node documented in this encounter [facility] Work Phone: Evaluation note* Diagnosis Poor intravenous access- Primary 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, unspecified site documented in this encounter [facility]* Diagnosis Sensorineural hearing loss, bilateral- Primary Tinnitus, bilateral Unspecified tinnitus documented in this encounter [facility] HealthcareEvaluation note* Diagnosis Personal history of malignant neoplasm of head and neck- Primary Personal history of malignant neoplasm of other site Dysphagia, unspecified type documented in this encounter [facility] Work Phone: Evaluation note* Diagnosis Esophageal dysphagia- Primary Dysphagia, pharyngoesophageal phase documented in this encounter [facility] HealthcareEvaluation note* Diagnosis Vertigo- Primary Dizziness and giddiness Lumbar radiculopathy Thoracic or lumbosacral neuritis or radiculitis, unspecified Chronic bilateral low back pain, unspecified whether sciatica present Degenerative disc disease, cervical Migraine without aura and without status migrainosus, not intractable (CMS/HCC) Polyneuropathy Unspecified hereditary and idiopathic peripheral neuropathy documented in this encounter [facility] HealthcareEvaluation note* Diagnosis Esophageal dysphagia- Primary Dysphagia, pharyngoesophageal phase 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, unspecified site documented in this encounter [facility] HealthcareEvaluation note* Diagnosis Personal history of malignant neoplasm of head and neck- Primary Personal history of malignant neoplasm of other site G tube feedings (Multi) At risk for malnutrition documented in this encounter [facility] Work Phone: Evaluation note* Diagnosis Esophageal dysphagia- Primary Dysphagia, pharyngoesophageal phase Carcinoma of oropharynx (HCC) Malignant neoplasm of oropharynx, unspecified site documented in this encounter [facility] HealthcareEvaluation note* Diagnosis Esophageal dysphagia- Primary Dysphagia, pharyngoesophageal phase [facility] - Reported* Type Description Date Medical History DM (diabetes mellitus) Medical History HTN (hypertension) Medical History Hypercholesteremia Medical History Vitamin D deficiency, unspecifie d Medical History CAD (coronary artery disease) Surgical History Neck Surgery Surgical History cholecystectomy Surgical History cardiac stent Surgical History prostatectomy Surgical History hernia Hospitalization History see above [employer] Other History general Narrative - Reported* Type [...] Surgical History hernia Hospitalization History see above [employer] Other History of Present illness Narrative* Veena Adkins DO - 10/11/2024 2:15 PM EDT Images from [...] I'll see him PRN documented in this [facility] HealthcareHistory of Present illness Narrative * Veena [...] C3-C4-C5 CHOLECYSTECTOMY GASTROSTOMY TUBE PLACEMENT HERNIA REPAIR 2001 INSERT / REPLACE / REMOVE PACEMAKER 2015 pacemaker insertion OTHER SURGICAL HISTORY 2005 ablation OTHER SURGICAL HISTORY 2007 sphincterotomy NM CHOLECYSTECTOMY 02/2020 Laparoscopic Cholecystectomy - [place] NM IMPLANT ARTIFICIAL SPHINCTER 2017 PROSTATE 2000 TONSILLECTOMY [...] prior to the visit. [facility] No data available for this section [facility] Discharge instructionsAmbulatory Orders* Referral to Palliative Medicine Time Frame: 06/14/24, Location: None Selected * RISE Order Location: None Selected [facility] Work Phone: Progress note No data available for this section [facility] Author Talib Faustin [facility] Note Date/Time June 14, 2024 1 1:06am [facility] [place] [address] Cancer Center Note Signed Patient: Jeremie Bennett MR#: [id number] : 1940 Acct:[id number] Age/Sex: 83 / M Type: REG AMB [...] by IHC was equivocal. 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 He is [...] positive squamous cell carcinoma. Tumor board at [facility] and the recommended concurrent chemoradiation. Past [...] with concurrent chemoradiation. Since he lives in [place] he was referred by Dr. Mary Schneider from ENT at [facility] to our medical oncology and radiation oncology at [facility]. He is referred to medical oncology for [...] PO DAILY aspirin 81 mg PO DAILY cmhffcv-jgeufnxtpydci-eupmknqf 250-250-65 mg (Excedrin Migraine) 1 tab PO [...] card, magnet, caregiver resource list, [facility] nutrition guide, and cancer rehabilitation pamphlet provided [...] to have pace maker replaced 07/10/2024 at [facility]. [facility] Medical History Medical History (Updated 06/14/24 [...] Display Dictated By: Talib Faustin MD DD/ [id number] Signed By: <Electronically signed by Talib Faustin MD> 06/14/24 1103 [facility] Work Phone: Progress note Author Talib Faustin [facility] Note Date/Time July 12, 2024 9:20am [facility] [place] [address] Cancer Center Note Signed Patient: Jeremie Bennett MR#: [id number] : 1940 Acct:[id number] Age/Sex: 83 / M Type: REG AMB [...] by IHC was equivocal. As per the [facility] tumor board recommendation is either doing extensive [...] his week 1 of cisplatin. Labs at [facility] on 07/03/24 revealed hgb 13.3, cr is 1.0. He is having his labs here today.He had his pacemaker placed on 07/10/24 in [place]. 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 He is [...] positive squamous cell carcinoma. Tumor board at [facility] [facility] and the recommended concurrent chemoradiation. Past [...] with concurrent chemoradiation. Since he lives in [place] he was referred by Dr. Mary Schneider from ENT at [facility] to our medical oncology and radiation oncology at [facility]. He is referred to medical oncology for [...] his week 1 of cisplatin. Labs at [facility] on 07/03/24 revealed hgb 13.3, cr is 1.0. He is having his labs here today.He had his pacemaker placed on 07/10/24 in [place]. Rest of 14 point systems were reviewed [...] PO QAM aspirin 81 mg PO DAILY bofowpt-ttcfnmxdwmruy-nqnukcvm 250-250-65 mg (Excedrin Migraine) 1 tab PO [...] other concerns voiced at time of intake. [facility] Medical History Medical History (Updated 07/06/24 [...] (Updated 06/13/24 @ 14:48 by Vanessa Singer A) Smoking status: Former smoker What tobacco products [...] signed by Talib Faustin MD> 07/12/24 0920 [facility] Work Phone: Progress note Author Zeke Brennan [facility] Note Date/Time August 21, 2024 2:14 pm [facility] [address] [place] [address] Hospitalist Progress Note Signed Patient: Jeremie Bennett MR#: [id number] : 1940 Acct:[id number] Age/Sex: 83 / M Adm Date: 5 Loc: 3T Room: 5A0625-5 Type: ADM IN Attending Dr: Zeke Brennan [...] of care and confirmed it with the resident/student/INSULATION CUTTER AND FORMER. This patient presented to the emergency department [...] spray 08/21/24 09:00 08/21/24 09:02 Fluticasone Propionate [place] 120 [place]/16 Gm Bottle INTRANASAL 08/21/25 08:59 2 spray [...] Drops/2.5 Ml Bottle EYE-BOTH 08/21/25 20:59 QPM [facility] Lidocaine/Prilocaine 1 applic 08/20/24 21:59 Lidocaine-Prilocaine Cr 2.5-2.5% 5 Gm Tube TOPICAL 08/20/25 21:58 ONCE PRN pain Metformin HCl 500 mg 08/21/24 08:00 08/21/24 09:00 Metformin 500 Mg Tablet PO 08/21/25 07:59 500 mg DAILY@0800 [facility] Administration Multi-Ingredient Mouthwash/Gargle 10 ml 08/20/24 [...] signed by DO KASSY Lambert> 08/21/24 1152 [facility] Work Phone: Progress note Author Talib Faustin [facility] Note Date/Time November 23, 2024 10:2 6am [facility] [address] Cancer Center Note Signed Patient: Jeremie Bennett MR#: [id number] : 1940 Acct:[id number] Age/Sex: 84 / M Type: REG AMB [...] by IHC was equivocal. As per the [facility] tumor board recommendation is either doing extensive surgery or concurrent chemoradiation and patient and family decided tog with concurrent chemoradiation. He has bilateral hearing [...] his week 1 of cisplatin. Labs at [facility] on 07/03/24 revealed hgb 13.3, cr is 1.0. He is having his labs here today.He had his pacemaker placed on 07/10/24 in [place]. 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 He is [...] positive squamous cell carcinoma. Tumor board at [facility] [place] [facility] and the recommended concurrent chemoradiation. Past [...] with concurrent chemoradiation. Since he lives in [place] he was referred by Dr. Mary Schneider from ENT at [facility] to our medical oncology and radiation oncology at [facility]. He is referred to medical oncology for [...] his week 1 of cisplatin. Labs at [facility] on 07/03/24 revealed hgb 13.3, cr is 1.0. He is having his labs here today.He had his pacemaker placed on 07/10/24 in [place]. 07/20/2024 he came in complaining of increase [...] NO concerns voiced at time of intake. [facility] Medical History Medical History Squamous cell [...] (end stage renal disease) [facility] Problem: Diagnosed with Cancer Lymphoma [...] signed by Talib Faustin MD> 11/23/24 1026 [facility] Work Phone: Progress note Author Becky Crouch [facility] Note Date/Time December 26, 2024 1: 25pm [facility] [place] [address] Cancer Center Note Signed Patient: Jeremie Bennett MR#: [id number] : 1940 Acct:[id number] Age/Sex: 84 / M Type: DEP AMB [...] G-tube was placed by surgery here at [facility] and patient is hopeful [...] Extended-Release) Allergy (Unknown, Verified 11/23/24 10:00) hives [facility] Medical History Medical History (Updated 11/23/24 [...] Mother Heart disease History of stroke [facility] Problem: Diagnosed with Stroke Hypertension Emphysema lung ESRD (end stage renal disease) [facility] Problem: Diagnosed with Cancer Lymphoma Social History [...] <Electronically signed by RAYSHAWN Crouch> 12/26/24 1343 [facility] Work Phone: Reason for referral (narrative) Referred by: Flori GARZA, [facility] Reason for visit Narrative* Auth/Cert Specialty Diagnoses / Procedures Referred By Bakari rosado Referred To Contact Diagnoses 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 Work Phone: Reason for visit Narrative* Imaging (Routine) - Authorized Specialty Diagnoses / Procedures Referred By Contac t Referred To Contact Radiology Diagnoses Enlarged submental lymph node Procedures US guided biopsy lymph node superficial IR biopsy [place] [address] [place] [address] Phone: tel: fax: Referral ID Status Reason Start Date Expiration Date Visits Requested Visits Authorized [id number] Authorized Perform Procedure 4 05/12/[address] [facility] Work Phone: Summary Purpose Family History [...] Documents on File Type Date Recorded Patient Public Health Social Worker Expl anation Healthcare Power of Atty 05/11/2024 Living Will 05/11/2024 Documents on File Type Date Recorded Patient Public Health Social Worker Expl anation Healthcare Power of Atty 05/11/2024 [...] Admit Date Squamous cell carcinoma of oropharynx [facility] 2024 9:25am Tongue cancer June 14, 2024 9 :25am Squamous cell carcinoma of oropharynx [facility] 2024 10:28am Chief Complaint Admit Date [...] Admit Date Squamous cell carcinoma of oropharynx [facility] 2024 9:25am Tongue cancer June 14, 2024 9 :25am Squamous cell carcinoma of oropharynx [facility] 2024 10:28am Encounter for palliative care June 182024 8:00am Squamous cell carcinoma of oropharynx [facility] 2024 8:00am Chief Complaint Admit Date [...] Admit Date Squamous cell carcinoma of oropharynx [facility] 2024 9:25am Tongue cancer June 14, 2024 9 :25am Squamous cell carcinoma of oropharynx [facility] 2024 10:28am Encounter for palliative care June 182024 8:00am Squamous cell carcinoma of oropharynx [facility] 2024 8:00am Cancer associated pain July 12 7:36am Nausea July 12, 2024 7:36am Squamous cell carcinoma of oropharynx [facility] 2024 7:36am Squamous cell carcinoma of oropharynx [facility] 2024 8:29am Tongue cancer July 12, [...] Admit Date Squamous cell carcinoma of oropharynx [facility] 2024 8:13am Cancer associated pain July 26, 2024 8:22am Nausea July 26, 2024 8:2 2am Squamous cell carcinoma of oropharynx [facility] 2024 8:22am Chief Complaint Admit Date NEW-Mal [...] Admit Date Squamous cell carcinoma of oropharynx [facility] 2024 8:13am Cancer associated pain July 26, 2024 8:22am Nausea July 26, 2024 8:2 2am Squamous cell carcinoma of oropharynx [facility] 2024 8:22am Cancer associated pain August 02, 2024 7:29am Constipation August 02, 2024 7:2 9am Squamous cell carcinoma of oropharynx [facility] 2024 7:29am Thrush, oral August 02, 2024 [...] Admit Date Squamous cell carcinoma of oropharynx [facility] 2024 8:13am Cancer associated pain July 26, 2024 8:22am Nausea July 26, 2024 8:2 2am Squamous cell carcinoma of oropharynx [facility] 2024 8:22am Cancer associated pain August 02, 2024 7:29am Constipation August 02, 2024 7:2 9am Squamous cell carcinoma of oropharynx [facility] 2024 7:29am Thrush, oral August 02, 2024 7:2 9am Cancer associated pain August 09, 2024 7:51am Constipation August 09, 2024 7:5 1am Nausea August 09, 2024 7:5 1am Squamous cell carcinoma of oropharynx [facility] 2024 7:51am Squamous cell carcinoma of oropharynx [facility] 2024 9:23am Chief Complaint Admit Date NEW-Mal [...] Admit Date Squamous cell carcinoma of oropharynx [facility] 2024 8:13am Cancer associated pain July 26, 2024 8:22am Nausea July 26, 2024 8:2 2am Squamous cell carcinoma of oropharynx [facility] 2024 8:22am Cancer associated pain August 02, 2024 7:29am Constipation August 02, 2024 7:2 9am Squamous cell carcinoma of oropharynx [facility] 2024 7:29am Thrush, oral August 02, 2024 7:2 9am Cancer associated pain August 09, 2024 7:51am Constipation August 09, 2024 7:5 1am Nausea August 09, 2024 7:5 1am Squamous cell carcinoma of oropharynx [facility] 2024 7:51am Squamous cell carcinoma of oropharynx [facility] 2024 9:23am Cancer associated pain August 16, 2024 7 :59am Constipation August 16, 2024 7:59 am Nausea August 16, 2024 7:59 am Squamous cell carcinoma of oropharynx [facility] 2024 7:59am Chief Complaint Admit Date NEW-Mal [...] Admit Date Squamous cell carcinoma of oropharynx [facility] 2024 8:13am Cancer associated pain July 26, 2024 8:22am Nausea July 26, 2024 8:2 2am Squamous cell carcinoma of oropharynx [facility] 2024 8:22am Cancer associated pain August 02, 2024 7:29am Constipation August 02, 2024 7:2 9am Squamous cell carcinoma of oropharynx [facility] 2024 7:29am Thrush, oral August 02, 2024 7:2 9am Cancer associated pain August 09, 2024 7:51am Constipation August 09, 2024 7:5 1am Nausea August 09, 2024 7:5 1am Squamous cell carcinoma of oropharynx [facility] 2024 7:51am Squamous cell carcinoma of oropharynx [facility] 2024 9:23am Cancer associated pain August 16, [...] Admit Date Squamous cell carcinoma of oropharynx [facility] 2024 8:13am Cancer associated pain July 26, 2024 8:22am Nausea July 26, 2024 8:2 2am Squamous cell carcinoma of oropharynx [facility] 2024 8:22am Cancer associated pain August 02, 2024 7:29am Constipation August 02, 2024 7:2 9am Squamous cell carcinoma of oropharynx [facility] 2024 7:29am Thrush, oral August 02, 2024 7:2 9am Cancer associated pain August 09, 2024 7:51am Constipation August 09, 2024 7:5 1am Nausea August 09, 2024 7:5 1am Squamous cell carcinoma of oropharynx [facility] 2024 7:51am Squamous cell carcinoma of oropharynx [facility] 2024 9:23am Cancer associated pain August 16, [...] Admit Date Squamous cell carcinoma of oropharynx [facility] 2024 8:13am Cancer associated pain July 26, 2024 8:22am Nausea July 26, 2024 8:2 2am Squamous cell carcinoma of oropharynx [facility] 2024 8:22am Cancer associated pain August 02, 2024 7:29am Constipation August 02, 2024 7:2 9am Squamous cell carcinoma of oropharynx [facility] 2024 7:29am Thrush, oral August 02, 2024 7:2 9am Cancer associated pain August 09, 2024 7:51am Constipation August 09, 2024 7:5 1am Nausea August 09, 2024 7:5 1am Squamous cell carcinoma of oropharynx [facility] 2024 7:51am Squamous cell carcinoma of oropharynx [facility] 2024 9:23am Cancer associated pain August 16, [...] of tongue August 07, 2024 9:05am Mal Migule base of tongue August 09, 2024 9:06am [...] Admit Date Squamous cell carcinoma of oropharynx [facility] 2024 8:13am Cancer associated pain July 26, 2024 8:22am Nausea July 26, 2024 8:2 2am Squamous cell carcinoma of oropharynx [facility] 2024 8:22am Cancer associated pain August 02, 2024 7:29am Constipation August 02, 2024 7:2 9am Squamous cell carcinoma of oropharynx [facility] 2024 7:29am Thrush, oral August 02, 2024 7:2 9am Cancer associated pain August 09, 2024 7:51am Constipation August 09, 2024 7:5 1am Nausea August 09, 2024 7:5 1am Squamous cell carcinoma of oropharynx [facility] 2024 7:51am Squamous cell carcinoma of oropharynx [facility] 2024 9:23am Cancer associated pain August 16, [...] Referral Specialty Diagnoses / Procedures Referred By Eduardoac t Referred To Contact Diagnoses Migraine without aura and without status migrainosus, not intractable (CMS/HCC) Missy Westfall PA [address] [place] [address] Referral ID Status Reason Start Date Expiration Date V isits Requested Visits Authorized [id number] Pending Review 02/16/2024 08/14/2024 1 1 Specialty Diagnoses / Procedures Referred By Contac t Referred To Contact [facility] Diagnoses IPMN (intraductal papillary mucinous neoplasm) Procedures MRI 3D POST PROCESSING 3D RENDERING W/INTERP&POSTPROC [place] [address] [facility] [address] [place] [address] Mr Imaging [place] [address] Referral ID Status Reason Start Date Expiration Date Visits Requested Visits Authorized [id number] New Request Auto-Generat ed Referral 02/01/2024 03/02/2025 1 1 Specialty Diagnoses / Procedures Referred By Bakari rosado Referred To Contact MR IMAGING Diagnoses IPMN (intraductal papillary mucinous neoplasm) Procedures MRI PANC/TRISH WO/W IVCON MRI ABDOMEN W/O & W/[place] [address] [facility] [address] [place] [address] Mr Imaging [id number] Referral ID Status Reason Start Date Expiration Date Visits Requested Visits Authorized [id number] New Request Auto-Generat ed Referral 02/01/2024 03/02/2025 [...] section and content) DATE CREATED AUTHOR 02/08/2020 [facility] DATE CREATED AUTHOR AUTHOR'S ORGANIZ ATION 09/30/2022 [facility] DATE CREATED AUTHOR AUTHOR'S ORGANIZ ATION 02/04/2023 [facility] DATE CREATED AUTHOR AUTHOR'S ORGANIZ ATION 04/01/2024 [facility] DATE CREATED AUTHOR AUTHOR'S ORGANIZ ATION 04/19/2024 [facility] DATE CREATED AUTHOR AUTHOR'S ORGANIZ ATION 07/05/2024 [facility] DATE CREATED AUTHOR AUTHOR'S ORGANIZ ATION 07/21/2024 [facility] DATE CREATED AUTHOR AUTHOR'S ORGANIZ ATION 07/22/2024 [facility] DATE CREATED AUTHOR AUTHOR'S ORGANIZ ATION 09/03/2024 [facility] DATE CREATED AUTHOR AUTHOR'S ORGANIZ ATION 10/15/2024 [facility] DATE CREATED AUTHOR AUTHOR'S ORGANIZ ATION 10/31/2024 [facility] DATE CREATED AUTHOR AUTHOR'S ORGANIZ ATION 12/01/2024 [facility] DATE CREATED AUTHOR AUTHOR'S ORGANIZ ATION 12/27/2024 [facility] DATE CREATED AUTHOR AUTHOR'S ORGANIZ ATION 01/17/2025 [facility] DATE CREATED AUTHOR AUTHOR'S ORGANIZ ATION 01/20/[address] [facility] EPIC DATE CREATED AUTHOR AUTHOR'S ORGANIZ ATION 02/17/2025 [facility] REASON FOR VISIT (unrecogniz ed section and content) Reason Comments Consult PE Reason Comments Received Outside Medical Records Reason Comments Back Pain Dizziness Neck Pain Reason Comments Parotid mass Parotid mass Reason Comments MRI Appointment Acute Care Certified Nursing Assistant - Other Reason Comments Parotid Mass Follow [...] cancerHaving pacemaker generator change on 07-10-24 / DC cardiology Dr Patel. Specialty Diagnoses / Procedures Referred By Bakari rosado Referred To Contact General Surgery Diagnoses Malignant neoplasm of oropharynx, unspecified (CMS/HCC) Procedures NM UNLISTED EVALUATION AND MANAGEMENT SERVICE Dennis Gray MD [address] [place] [address] Phone: tel: fax: Stacey Hinojosa DO [address] [address] Phone: tel: fax: Referral ID Status Reason Start Date Expiration Date Visits Re quested Visits Authorized [id number] Closed 06/14/2024 12/11/2024 1 1 Reason Comments Follow-up Reason Comments urgent need for gastrostomy tube Reason Comments 1st pow gastrostomy tube placement Reason Comments Gastrostomy tube removal Specialty Diagnoses / Procedures Referred By Bakari rosado Referred To Contact General Surgery Diagnoses Malignant neoplasm of oropharynx, unspecified (HCC) Procedures NM UNLISTED EVALUATION AND MANAGEMENT SERVICE Gelacio Paredes MD Phone: tel: fax: Agapito Adkinsic Jane, [address] [place] [address] [place] [address] Phone: tel: fax: Referral ID Status Reason Start Date Expiration Date Visits Re quested Visits Authorized [id number] Closed 12/26/2024 06/24/2025 1 1 Reason Comments Removal of gastrostomy tube Patient Care team informatio n (unrecognized section and content) Team Status: Active Member Role Status Dates Demetrius Cooper MD Primary Care Provider Active Team Status: Inactive Member Role Status Tati [...] 26, 2024 Maru Ma DO Attending Provide , Other Provider Active Start: July 26, 2024 [...] Provider Active S tart: August 07, 2024 eDnnis Gray MD Attending Provider Active Start: August [...] Nance MD Admit Provider Active Start: A 2024 End: August 21, 2024 Yash Thomas [...] Team Status: Active Member Role Status Dates Demetirus Cooper MD Primary Care Provider Active Start: [...] Nance MD Admit Provider Active Start: A priboris 2024 Yash Thomas MD Other Provider Active [...] Active Anjali Ruby NP-C Attending Provider Active Carpenter Assistant Relationship Specialty Start Date End Date Anjali Ruby CNP [address] [place] [address] Referring Family Medicine 03/03/23 Carpenter Assistant Relationship Specialty Start Date End Date Anjali Ruby CNP [address] [place] [address] Referring Family Medicine 03/03/23 Team Status: Inactive [...] September 02, 2023 End: September 02, 2023 Carpenter Assistant Relationship Specialty Start Date End Date Anjali Ruby CNP [address] [place], [place] [address] [address] Referring Family Medicine 03/03/23 Carpenter Assistant Relationship Specialty Start Date End Date Demetrius Cooper MD [address] [place] [phone] PCP - General Family Medicine 01/26/24 Clarissa Corado MD [address] [place] [address] Referring Physician Neurology 08/03/23 Carpenter Assistant Relationship Specialty Start Date End Date Demetrius Cooper MD [address] [place] [address] PCP - General Family Medicine 01/26/24 Clarissa Corado MD [address] [place] [address] Referring Physician Neurology 08/03/23 Carpenter Assistant Relationship Specialty Start Date End Date Demetrius Cooper MD [address] [place] [address] PCP - General Family Medicine 01/26/24 Clarissa Corado MD [address] [place] [address] Referring Physician Neurology 08/03/23 Carpenter Assistant Relationship Specialty Start Date End Date Anjali Ruby CNP [address] [place], [place] [address] [address] Referring Family Medicine 03/03/23 Team Status: Inactive Member Role Status Dates Demetrius Cooper MD Primary Care Provider Active Start: February 29, 2024 End: February 29, 2024 Luc Ham Jr, MD Attending Provider Active Start: February 29, 2024 End: February 29, 2024 Carpenter Assistant Relationship Specialty Start Date End Date Demetrius Cooper MD [address] [place] [phone] PCP - General Family Medicine 01/26/24 Clarissa Corado MD [address] [place] [id number] Referring Physician Neurology 08/03/23 Carpenter Assistant Relationship Specialty Start Date End Date Demetrius Cooper MD [address] [place] [phone] PCP - General Family Medicine 01/26/24 Clarissa Corado MD [address] [place] [address] Referring Physician Neurology 08/03/23 Carpenter Assistant Relationship Specialty Start Date End Date Demetrius Cooper MD [address] [place] [phone] PCP - General Family Medicine 01/26/24 Clarissa Corado MD [address] [place] [address] Referring Physician Neurology 08/03/23 Carpenter Assistant Relationship Specialty Start Date End Date Demetrius Cooper MD [address] [place] [address] PCP - General Family Medicine 03/27/24 Anjali Ruby CNP [address] [place] [address] Referring Family Medicine 03/03/23 Luc Ham MD [address] [place] [address] [place] [phone] Ent - Otolaryngology 03/10/24 Carpenter Assistant Relationship Specialty Start Date End Date Demetrius Cooper MD [address] [facility] [place] [address] PCP - General Family Medicine 01/26/24 Clarissa Corado MD [address] [facility] [address] [place] [id number] Referring Physician Neurology 08/03/23 Carpenter Assistant Relationship Specialty Start Date End Date Demetrius Cooper MD [address] [facility] [place] [address] PCP - General Family Medicine 04/11/24 Carpenter Assistant Relationship Specialty Start Date End Date Demetrius Cooper MD [address] [facility] [place] [address] PCP - General Family Medicine 04/11/24 Carpenter Assistant Relationship Specialty Start Date End Date Demetrius Cooper MD [address] [facility] [place] [address] PCP - General Family Medicine 04/11/24 Carpenter Assistant Relationship Specialty Start Date End Date Demetrius Cooper MD [address] [facility] [place] [address] PCP - General Family Medicine 04/11/24 Team [...] June 14, 2024 End: June 14, 2024 Carpenter Assistant Relationship Specialty Start Date End Date Demetrius Cooper MD [address] [place] [place] [address] PCP - General Family Medicine 01/26/24 Clarissa Corado MD [address] [place] [address] Referring Physician Neurology 08/03/23 Team Status: Active Member Role Status Dates Demetrius Cooper MD Primary Care Provider Active Start: June 20, 2024 Mray Schneider MD Referring Provider Active S tart: June 20, 2024 Dennis Gray MD Attending Provider Active Start: June 20, 2024 Carpenter Assistant Relationship Specialty Start Date End Date Demetrius Cooper MD [address] [place] [address] PCP - General Family Medicine 01/26/24 Clarissa Corado MD [address] [place] [address] Referring Physician Neurology 08/03/23 Team Status: Active [...] Provider A ctive Start: August 20, 2024 Carpenter Assistant Relationship Specialty Start Date End Date Demetrius Cooper MD [address] [facility] [place] [address] PCP - General Family Medicine 04/11/24 Carpenter Assistant Relationship Specialty Start Date End Date Demetrius Cooper MD [address] [place] [address] PCP - General Family Medicine 01/26/24 Clarissa Corado MD Referring Physician Neurology 08/03/23 Carpenter Assistant Relationship Specialty Start Date End Date Demetrius Cooper MD [address] [place] [address] PCP - General Family Medicine 01/26/24 Clarissa [...] September 26, 2024 End: September 26, 2024 Carpenter Assistant Relationship Specialty Start Date End Date Demetrius Cooper MD [address] [place] [address] PCP - General Family Medicine 01/26/24 Clarissa Corado MD Referring Physician Neurology 08/03/23 Carpenter Assistant Relationship Specialty Start Date End Date Demetrius Cooper MD [address] [place] [address] PCP - General Family Medicine 01/26/24 Clarissa Corado MD Referring Physician Neurology 08/03/23 Carpenter Assistant Relationship Specialty Start Date End Date Demetrius Cooper MD [address] [place] [address] PCP - General Family Medicine 01/26/24 Clarissa Corado MD Referring Physician Neurology 08/03/23 Team Status: Inactive Member Role Status Dates Demetrius Cooper MD Primary Care Provider Active Start: October 03, 2024 End: October 03, 2024 Veena Adikns DO Attending Provider Active Start: October 03, [...] November 23, 2024 End: November 23, 2024 Carpenter Assistant Relationship Specialty Start Date End Date Demetrius Cooper MD [address] [facility] [place] [address] PCP - General Family Medicine 04/11/24 Team Status: Active Member Role Status Dates Demetrius Cooper MD Primary Care Provider Active Start: November 23, 2024 Debora Wild APRN Attending Provider Active Start: November 23, 2024 Debora Wild APRN Other Provider Active Start: November 23, 2024 Team Status: Inactive Member Role Status Dates Demetrius Cooper MD Primary Care Provider Active Start: December 26, 2024 End: December 26, 2024 OlgaDebora Crouch APRN Attending Provider Acti ve Start: December 26, 2024 End: December 26, 2024 Team Status: Active Member Role Status Dates Demetrius Cooper MD Primary Care Provider Active Start: December 26, 2024 Mary Schneider MD Referring Provider Active S tart: December 26, 2024 Talib Faustin MD Attending Provider Active Start: December 26, 2024 Carpenter Assistant Relationship Specialty Start Date End Date Demetrius Cooper MD [address] [place] [address] PCP - General Family Medicine 01/26/24 Clarissa Corado MD Referring Physician Neurology 08/03/23 Carpenter Assistant Relationship Specialty Start Date End Date Demetrius Cooper MD [address] [place] [address] PCP - General Family Medicine 01/26/24 Clarissa [...] any alcohol or drug abuse patient.[facility] the event this information is protected by the Federal Confidentiality of Alcohol and Drug Abuse Patient Records regulations: The Federal rules restrict any use of the information to criminally investigate or prosecute any alcohol or drug abuse patient.[facility] Hospital[facility] the event this information is protected by the Federal Confidentiality of Alcohol and Drug Abuse Patient Records regulations: The Federal rules restrict any use of the information to criminally investigate or prosecute any alcohol or drug abuse patient.[facility] the event this information is protected by the Federal Confidentiality of Alcohol and Drug Abuse Patient Records regulations: The Federal rules restrict any use of the information to criminally investigate or prosecute any alcohol or drug abuse patient.[facility] Hospital[facility] the event this information is protected by the Federal Confidentiality of Alcohol and Drug Abuse Patient Records regulations: The Federal rules restrict any use of the information to criminally investigate or prosecute any alcohol or drug abuse patient.[facility] PRN Active and Recently Administ ered [...] BE BASED ON THE PRIMARY CLINICAL RECORDS. [employer] provides no warranty or guarantee of the accuracy or completeness of information in this document.
--- NOTE | 2025-02-22 14:10 | PM.WCHP ---
Wound Care H&P: HPI History of Present Illness Narrative: The patient is a pleasant 84-year-old gentleman who presents for routine nail care. He has history of type 2 diabetes and his last hemoglobin A1c was 5.9. He complains of pain in his toenails. He also complains of neuropathic pain that bothers him mostely at night. [facility] Medical History (Updated 02/22/25 @ 14:11 by NILAY Banegas) Anemia ?D64.9 - Anemia, unspecified (ICD-10) COVID ?U07.1 - COVID-19 (ICD-10) Vitamin D deficiency ?E55.9 - Vitamin D deficiency, unspecified (ICD-10) Skin cancer ?C44.90 - Unspecified malignant neoplasm of skin, unspecified (ICD-10) NPH (normal pressure hydrocephalus) ?G91.2 - (Idiopathic) normal pressure hydrocephalus (ICD-10) Migraine ?G43.909 - Migraine, unspecified, not intractable, without status migrainosus (ICD-10) Glaucoma ?H40.9 - Unspecified glaucoma (ICD-10) Diverticulosis ?K57.90 - Diverticulosis of intestine, part unspecified, without perforation or abscess without bleeding (ICD-10) Ventricular tachycardia ?I47.20 - Ventricular tachycardia, unspecified (ICD-10) Arthritis ?M19.90 - Unspecified osteoarthritis, unspecified site (ICD-10) Cervical lymphadenopathy ?R59.0 - Localized enlarged lymph nodes (ICD-10) Neck pain ?M54.2 - Cervicalgia (ICD-10) Low back pain ?M54.50 - Low back pain, unspecified (ICD-10) Thrombosis ?I82.90 - Acute embolism and thrombosis of unspecified vein (ICD-10) Weakness ?R53.1 - Weakness (ICD-10) Hiatal hernia ?K44.9 - Diaphragmatic hernia without obstruction or gangrene (ICD-10) Acid reflux ?K21.9 - Gastro-esophageal reflux disease without esophagitis (ICD-10) Diabetes ?E11.9 - Type 2 diabetes mellitus without complications (ICD-10) Prostate cancer ?C61 - Malignant neoplasm of prostate (ICD-10) Sleep apnea ?G47.30 - Sleep apnea, unspecified (ICD-10) Irregular heart beat ?I49.9 - Cardiac arrhythmia, unspecified (ICD-10) High cholesterol ?E78.00 - Pure hypercholesterolemia, unspecified (ICD-10) Hypertension ?I10 - Essential (primary) hypertension (ICD-10) Surgical History History of lymph node biopsy ?Z98.890 - Other specified postprocedural states (ICD-10) History of implantation of artificial sphincter ?Z96.89 - Presence of other specified functional implants (ICD-10) Hx laparoscopic cholecystectomy ?Z90.49 - Acquired absence of other specified parts of digestive tract (ICD-10) History of carpal tunnel release of both wrists ?Z98.890 - Other specified postprocedural states (ICD-10) Pacemaker ?Z95.0 - Presence of cardiac pacemaker (ICD-10) H/O angioplasty ?Z98.62 - Peripheral vascular angioplasty status (ICD-10) H/O vasectomy ?Z98.52 - Vasectomy status (ICD-10) H/O neck surgery ?Z98.890 - Other specified postprocedural states (ICD-10) History of repair of inguinal hernia ?Z98.890 - Other specified postprocedural states (ICD-10) ?Z87.19 - Personal history of other diseases of the digestive system (ICD-10) History of prostatectomy ?Z90.79 - Acquired absence of other genital organ(s) (ICD-10) History of phacoemulsification of cataract of both eyes with intraocular lens implantation ?Z98.41 - Cataract extraction status, right eye (ICD-10) ?Z98.42 - Cataract extraction status, left eye (ICD-10) ?Z96.1 - Presence of intraocular lens (ICD-10) History of cardiac radiofrequency ablation ?Z98.890 - Other specified postprocedural states (ICD-10) History of tonsillectomy ?Z90.89 - Acquired absence of other organs (ICD-10) Social History Smoking status: Former smoker Little interest or pleasure in doing things: not at all Feeling down, depressed, or hopeless: not at all Meds Home Medications and Allergies Home Medications ?Medication ?Instructions ?Recorded ?Confirmed ?Type amlodipine 5 mg tablet 5 mg PO QDAY 10/14/22 02/29/24 History clopidogrel 75 mg tablet (Plavix) 75 mg PO QDAY 10/14/22 02/29/24 History furosemide 20 mg tablet (Lasix) 40 mg PO QDAY 10/14/22 02/21/24 History irbesartan 300 mg tablet (Avapro) 300 mg PO QDAY 10/14/22 02/29/24 History isosorbide mononitrate 30 mg PO QDAY 10/14/22 02/29/24 History latanoprost 0.005 % eye drops 1 drp ophthalmic (eye) QDAY 10/14/22 02/29/24 History loperamide 2 mg capsule 2 mg PO Q2H PRN loose stool 10/14/22 02/29/24 History (Anti-Diarrheal (loperamide)) multivitamin (Daily Multi-Vitamin 1 tab PO QDAY 10/14/22 02/29/24 History tablet) omeprazole 40 mg capsule,delayed 40 mg PO QDAY 10/14/22 02/29/24 History release rosuvastatin 10 mg tablet (Crestor) 10 mg PO QDAY 10/14/22 02/29/24 History sotalol 40 mg PO BID 10/14/22 02/29/24 History tizanidine 4 mg tablet 4 mg PO BEDTIME 10/14/22 02/29/24 History TRANSDERMAL THERAPEUTICS QID PRN pain 09/15/23 History albuterol sulfate 90 mcg/actuation 2 inh inhalation Q8H PRN shortness 09/15/23 09/15/23 History aerosol inhaler of breath or wheezing famotidine 20 mg tablet 20 mg PO DAILY 09/15/23 02/29/24 History metformin 500 mg tablet,extended 500 mg PO DAILY 09/15/23 02/29/24 History release 24 hr psyllium husk 0.4 gram capsule 0.4 g PO DAILY 09/15/23 02/21/24 History (Metamucil) zonisamide 25 mg capsule 25 mg PO BID 09/15/23 02/29/24 History dorzolamide 2 % eye drops 1 drp ophthalmic (eye) TID 02/21/24 02/29/24 History Allergies Allergy/AdvReac Type Severity Reaction Status Date / Time adhesive Allergy Mild Unknown Verified 09/29/24 22:56 niacin (From [facility] Allergy Mild itch Verified 05/16/25 22:56 Extended-Release) Exam Narrative: Exam Narrative: Derm: Mycotic toenails affecting 2 through 5 on each foot, no evidence of paronychia. Both hallux toenails have been partially removed in the past, there is remaining spicule growing on both great toes. No ulcerative or preulcerative lesions are noted. Skin is dry and shiny with varicosities present. Vascular: Nonpalpable PT pulses bilaterally. Dorsalis pedis pulses are 1/4 bilaterally. Capillary refill is approximately 3 seconds. Skin is cool to the touch. Trace edema bilaterally. Digital hair is absent. Varicosities are present. Musculoskeletal: no gross deformity, range of motion is supple Neuro: Protective sensation intact to 5/5 tested areas with the monofilament on each foot. Vibratory sensation is absent on the right and decreased on the left, Achilles deep tendon reflexes are absent bilaterally Assessment and Plan Assessment and Plan (1) Tinea unguium: (2) PAD (peripheral artery disease): (3) Gait instability: (4) Disorder of nail due to another disorder: (5) Type 2 diabetes mellitus with diabetic neuropathy, unspecified: (6) Pain around toenail: (7) Painful diabetic neuropathy: Plan Routine nail care performed without incident. Follow-up in 3 months or as needed. Prescription for topical pain compound cream for his neuropathic pain was sent to [facility]. Acute Procedures Podiatry Nail Debridement Class B Findings Absent posterior tibial pulse: bilateral Advanced trophic changes as evidenced by any three of the following: decreased hair growth, nail changes (thickening) and skin texture (thin or shiny) Class C Findings Claudication: No Temperature changes: No Edema: Yes Nail debridement paresthesia (abnormal spontaneous sensations in the feet): No Burning: No Qualifies If: Qualifiers If:: A patient qualifies for nail debridement if they have: 1 class A finding (Q7) 2 class B findings (Q8) OR 1 class B & 2 class C findings in addition to a primary condition (Q9) Nail Procedure Nail Procedure Time out: Yes Nail procedure: other (Toenail debridement 4 toes on each foot) Number of affected nails: 8 Location (toes): left Procedure successful: Yes Patient tolerated procedure: well and no complications Additional comments: Remaining 8 toenails were sharply debrided with nail nippers without incident.
== END 2025-02-22 13:19 | disposition home or self-care (01) ==
LOC: WC 13:18
PROVIDERS: PCP Family Medicine; Visit Provider Physician Assistant
DX: M54.50 Low back pain, unspecified (principal); G89.29 Other chronic pain; M46.1 Sacroiliitis, not elsewhere classified; M79.18 Myalgia, other site; B35.1 Tinea unguium; I73.9 Peripheral vascular disease, unspecified; R26.89 Other abnormalities of gait and mobility; L60.8 Other nail disorders; E11.40 Type 2 diabetes mellitus with diabetic neuropathy, unspecified; M79.676 Pain in unspecified toe(s)
CPT/HCPCS: 11721; G0463

== ENCOUNTER 2025-02-22 14:22 | Outpatient (OUT) | payer MEDICARE, SELFPAY ==
--- OUTSIDE RECORDS SUMMARY | 2025-02-22 14:31 | XMS_ITS | CCD ---
Author Organization [facility] Care Team Providers Care Oil Processing Technician Name Role Phone ELTAHAWY, EHAB A Admitting Unavailable ELTAHAWY, EHAB A Attending Unavailable DEMETRIUS COOPER Referring Unavailable DEMETRIUS COOPER Primary Care Unavailable Param Cosme Attending Provider Demetrius Cooper Primary Care Provider Param Cosme Attending Provider Demetrius Cooper Primary Care Provider Leti Garcia Unavailable MG LONDON Primary Care Physician KAT Westfall Attending Provider MD Mg [place] Primary Care Provider [phone] KAT Westfall Attending Provider MD Mg [place] Primary Care Provider MD Erwin Salazar Attending Provider [phone] Erwin Salazar Unavailable MARCE Hardy Attending Provider KAT Westfall Other Provider Demetrius Cooper Primary Care Physician Griselda Pennington Unavailable ALANNA HARDY Admitting Unavailable ALANNA HARDY Attending Unavailable LITA, DR MG Omalley Primary Care Unavailable BALTIMORE, DR ERWIN Bell Consulting Unavailable ALANNA HARDY [...] Unavailable ABDON, SONA Admitting Unavailable ZIEBER, DR CALRISSA Cline Consulting Unavailable NADERER, DR MG Omalley Primary Care Unavailable ABDON, SONA Consulting Unavailable NADERESon, DR MG Omalley Primary Care Unavailable MARKER ., DR ODELL Consulting Unavailable MARKER ., DR ODELL Admitting Unavailable MARKER ., DR ODELL Attending Unavailable HIGHTOWER, GIN Consulting Unavailable ABDON, SONA Attending Unavailable ABDON, SONA Admitting Unavailable NADERESon, DR MG Omalley Primary Care Unavailable LAOZ ., SONNY Consulting Unavailable NADERER, DR MG Omalley Primary Care Unavailable LCANCY ., DR AMANDA Fish Attending Unavailable CLANCY [...] NADERER, DR MG Omalley Primary Care Unavailable BALTIM[place], DR ERWIN Bell Consulting Unavailable ELTAHAWY, DR [...] Provider Esme Brunson NP Gisele Attending Provider [phone] FABIO Ruby Attending Provider [phone] Flori FORENSIC TECHNICIAN, [facility] Unavailable MD Demetrius Cooper Primary Care Provider DAISHA Brunson Gisele Attending Provider Clarissa Corado MD Unavailable Demetrius Cooper MD Primary Care Provider Flori GARZA, [facility] A. Unavailable MD Demetrius Cooper Primary Care Provider [phone] MD Luc Ham Jr Attending Provider Luc [...] Care Provider Mary Schneider MD Referring Provider [phone] Dennis Gray MD Attending Provider Matteo Melo MD Attending Provider Demetrius Cooper MD Primary Care Provider Debora Wild APRN Attending Provider [phone] Mary Schneider MD Referring Provider Dennis Gray [...] Primary Care Unavailable Matteo Melo Admitting Unavailable Mattoe Melo Attending Unavailable Luc Ham Jr Admitting [...] Provider Talib Faustin MD Attending Provider Dennis Grya MD Attending Provider Pepito Galicia DO Attending Provider Dennis Gray MD Attending Provider Dennis Gray MD Attending Provider Mary Schneider MD Referring Provider [phone] Dennis Gray MD Attending Provider Mary Schneider MD Referring Provider [phone] Ramin CASON, Talib Faustin Attending Provider Louie Marrero DO Emergency Provider Jaiden Nance MD Admit Provider Jaiden Nance MD Attending Provider Martha CASON, Yash Other Provider Zeke Brennan MD Attending Provider [phone] Demetrius Cooper MD Primary Care Provider Mary [...] Unavailable Demetrius Cooper MD Primary Care Provider [phone] Becky Crouch APRN Attending Provider Boy ASHTON, Gisele Attending Provider Debora Wild APRN Attending Provider [...] Demetrius Cooper MD E Primary Care Provider Debora Wild APRN Attending Provider Debora Wild APRN Other Provider Becky Crouch APRN Attending Provider Mary Schneider MD Referring Provider [phone] MARY SCHNEIDER Attending Unavailable LEIGH SCHNEIDERN Qasim [...] Unavailable LEIGH SCHNEIDERN Qasim Attending Unavailable ROSS, DEMETRISU JACKELYN Primary Care Unavailable SCHNEIDER, MARY N Attending Unavailable ROSS, DEMETRIUS JACKELYN Primary Care Unavailable Josh CASON, Clarissa Unavailable [phone] Matteo Melo Admitting Unavailable Ross, Demetrius E [...] Desonide Drug Allergy 0 [facility] Repository (1 source) Niacin Drug Allergy 0 [facility] Repository (20 sources) Adhesive agent; Translations: [adhesive] Drug allergy 4 [facility] (20 sources) Niacin; Translations: [niacin] Drug Allergy 9 hives, Itching (finding), Itching, Unknown [facility] (20 sources) Adhesive bandage; Translations: [Adhesive Bandage] Allergy to substance Eruption of skin (disorder) [facility] (5 sources) Niacin Drug Allergy hives [facility] Other (2 sources) Niaspan Starter Pack Drug allergy (disorder) 8 [facility] Repository (15 sources) Adhesive Tape-Silicones; Translations: [ADHESIVE TAPE-SILICONES] Drug Allergy 9 Rash [facility] (20 sources) Niacin Drug Allergy 9 Itching, Unknown [facility] (20 sources) Wound Dressing Adhesive Drug Allergy 3 Unknown [facility] (4 sources) Niacin; Translations: [Niaspan ER] Drug Allergy [facility] Repository (2 sources) Niacin Drug Allergy 5 [facility] Repository Medications Current Medications Medication Drug Class(es) Dates Sig (Normalized) Sig (Original) acetaminophen 325 mg / butalbital 50 mg / caffeine 40 mg oral capsule (20 sources) Barbiturate, Central Nervous System Stimulant, Methylxanthine Start: 11-29-2023 take 1 capsule by mouth every four hours for headache Esgic 325 mg-50 mg-40 mg oral capsule 1 cap(s), Oral, q4hr for headache, 60 cap(s), Refill(s) 1, [id number], 160, cm, 11/29/23 10:29:00 EDT, Height/Length Dosing, 78.5, kg, 11/29/23 10:29:00 EDT, Weight Dosing Start Date: 11/29/23 Status: Ordered Quantity: 60.0 Unit: cap(s) Repeat number: 2 Start: 12-15-2022 End: 10-11-2024 take 1 tablet by mouth every four hours as needed ixykzolnjh-ofxvfnocjbrrp-xntr 50-325-40 mg tablet Take 1 tablet by [...] MOUTH EVERY 6 HOURS, [facility] ([facility]), 163, cm, 11/04/22 15:03:00 EDT, Height/Length Dosing, 76, kg, 11/04/22 15:03:00 EDT, Weight Dosing Start Date: 11/09/22 Status: Ordered Quantity: 17.0 Unit: g Repeat number: 1 Start: 11-09-2022 Albuterol (Eqv -ProAir HFA) 90 mcg/inh inhalation aerosol See Instructions, 17 gm, Refill(s) 6, USE 2 INHALATIONS BY MOUTH EVERY 6 HOURS, [facility] ([facility]), 163, cm, 11/04/22 15:03:00 EDT, Height/Length Dosing, 76, kg, 11/04/22 15:03:00 EDT, Weight Dosing Start Date: 11/09/22 Status: Ordered {1 (Ascorbic Acid 7540 MG / POLYETHYLENE GLYCOL 3350 75345 MG / Potassium Chloride 1200 MG / Sodium Ascorbate 42933 MG / Sodium Chloride 3200 MG Powder for Oral Solution) / 1 (POLYETHYLENE GLYCOL 3350 091530 MG / Potassium Chloride 1000 MG / Sodium Chlori (5 sources) Osmotic Laxative, Vitamin C Start: 12-15-2022 Plenvu oral powder for reconstitution See Instructions, 1 EA, Refill(s) 0, Prior to colonoscopy., [facility] #[id number], 163, cm, 12/15/22 12:03:00 EDT, Height/Length Dosing, [...] procedure, # 10 cap(s), Refills(s) 0, Pharmacy: [facility] #[id number], 167, cm, 04/27/22 8:46:00 EST, Height/Length Dosing, [...] 0, one scoop BID 90 day supply, [id number], 162, cm, 08/30/23 10:00:00 EDT, Height/Length Dosing, 78.4, kg, 08/30/23 10:00:00 EDT, Weight Dosing Start Date: 09/06/23 Status: Ordered Start: 05-25-2023 End: 08-23-2023 take 4 g by mouth once daily Questran 4 g/9 g oral pow shaye 4 gm, Oral, Daily, X 90 day(s), # 90 packet(s), Refills(s) 0, Pharmacy: [facility] #[id number], 163, cm, 05/25/23 12:33:00 EST, Height/Length Dosing, [...] Intraprocedure Fish Oils (7 sources) Start: 11-04-2022 [place]-3 Fish O il Oral, Daily, Refills(s) 0, Prophylaxis Start Date: 11/04/22 Status: Ordered Start: 11-04-2022 [place]-3 Fish O il Oral, Daily, Refills(s) 0 Start Date: 11/04/22 Status: Ordered fluticasone 0.05 mg/inh Nasal [place] (1 source) Start: 04-24-2020 fluticasone 0. 05 mg/inh Nasal [place] Daily, Refill(s) 0 Start Date: 04/24/20 Status: [...] as directed for 6 days September, Active [facility] (6 sources) Start: 11-08-2023 [facility] Transdermal Therapeutics up to four times per day: Meloxicam 0.5%/ Doxepin 3%/ Amantidine 3%/Dextromethorphan 2%/ Lidocaine 2% Start Date: 11/08/23 Status: Ordered Repeat number: 1 Start: 11-08-2023 [facility] [place] Transdermal Therapeutics up to four [...] 0, Prophylaxis Start Date: 04/24/20 Status: Ordered [place] 3 (5 sources) [place] 3 Active omega-3 acid ethyl esters (care home) 1000 mg oral capsule (20 sources) [...] Pantoprazole Sod ium Active polyethylene glycol 3350 59656 mg powder for oral solution (7 sources) Osmotic Laxative Start: 09-20-2024 Potassium Chloride (9 sources) Start: 08-30-2024 take 1 tablet by mouth twice daily Potassium Chloride (Zhh-Lyyy-Itz M20) 20 mEq oral tablet, extended release [...] 8:40am Start: 11-08-2023 [facility] at [facility] Tylenol PM Oral, Once a day (at bedtime), Refill(s) 0, 250mg- 2 tabs at HS Start Date: 11/08/23 Status: Ordered take 25-[address] [facility] once as needed diphenhydrAMINE-acetaminophen (Tylenol PM) [...] Corticosteroid Start: 01-18-2024 fluticasone Nasal 0.05 mg/inh [place] See Instructions, 16 gm, Refill(s) 0, USE [...] (F LONASE) 50 mcg/actuation nasal spray 1 [place]. 08/24/2022 Active Start: 08-24-2022 take 1 spray(s) nasa l route twice daily Flonase 0.05 mg/inh [place] 1 spray(s), Nasal, BID, 16 gram, Refill(s) 0, each nostril, [facility] ([facility] ), 167.6, cm, 08/24/22 8:10:00 [...] for 30 Active Comment on above: 1 [place]. irbesartan 300 mg oral tablet (20 sources) [...] 2024 1:00am July 26, 2024 8:43am nystatin [id number] unt oral tablet (20 sources) Polyene Antifungal Start: 08-17-2024 End: 11-23-2024 take 1 tablet by mouth four times daily Nystatin 500,000 unit tablet Discontinued [id number] UNIT PO Four times daily 40 September 14, 2024 9:24am November 23, 2024 10:01am Start: 08-02-2024 End: 08-20-2024 Nystatin 100,000 unit/mL alisia pension Discontinued [id number] UNIT PO Four times daily 224 August 02, 2024 12:00am August 20, 2024 6:07pm administer 1/2 of dose in each side of the mouth Nystatin 100,000 unit/mL suspension (8 sources) Start: 08-02-2024 End: 08-20-2024 Nystatin 100,000 unit/mL suspension Discontinued [id number] UNIT PO Four times daily 224 August 02, 2024 12:00am August 20, 2024 6:07pm administer 1/2 of dose in each side of the mouth Start: 08-02-2024 Nystatin 100,0 00 unit/mL suspension Active [id number] UNIT PO Four times daily 224 August [...] above: Take 10 mg by mouth. sennosides, care home 8.6 mg oral tablet (6 sources) [...] Coronary arteriosclerosis; Translations: [Atherosclerotic heart disease of [place] coronary artery without angina pectoris] Onset: 9 [...] Chronic Comment on above: noted in 08/20/2024 [facility] ED Note page 5. 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 added per OP [...] encounter status 02-25-2023 Unclassified (4 sources) A [facility] screening has identified you as FRAIL or [...] Four Ways to Beat the Frailty Risk [email or web address] f-ofrauf-lshb-ways-to- ktuc-nef-gbp ilty-risk 08-21-2024 Unclassified (1 source) Mild pulmonary [...] Range Facility Orders Onlyon 02-06-2025 Orders Only [id number] [address] P 1940 M Date Provider Department Center 02/06/2025 STACEY ERNANDEZ C CARD [facility] Family History Problem Relation Age of Onset Coronary artery disease Mother Kidney disease Mother Heart failure Mother Family Status - Relation Status Age at Mother Father Normal [facility] Office Visiton 12-05-2024 Follow-up visit [id number] [address] P 1940 M Date Provider Department Center 12/05/2024 STACEY ERNANDEZ CARD [facility] Family History Problem Relation Age of Onset Coronary artery disease Mother Kidney disease Mother Heart failure Mother Family Status - Relation Status Age at Mother Father Level of Service:88126 [place] OFFICE/OUTPATIENT ESTABLISHED LOW MDM 20 MIN Normal [facility] Ambulatory Visit Summaryon 0 11-21-2024 Ambulatory [...] Film) fluticasone nasal (fluticasone Nasal 0.05 mg/inh [place]) furosemide (furosemide 20 mg Tab) irbesartan (irbesartan [...] fluticasone nasal (fluticasone Nasal 0.05 mg/ inh [place]) See instructions USE 1 SPRAY IN BOTH [...] to opioid therapy 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 Normal [facility] Family Medicine Office/Clini c Noteon 11-21-2024 Family [...] of clutter to prevent tripping and/or falling. [place] Advance Directives reviewed, present at home. Encouraged [...] healthy weight. (more content not included)... Normal [facility] Comment on above: Result Comment: Elec tronically Signed By: MARICRUZ TREVINO CNP\.br\Date and Time Signed: 11/21/24 16:03 EDT\.br\Electronically Co-Signed By: Monse Puckett\.br\Date and Time Co-Signed: 11/21/24 14:59 EDT Alanine aminotransferase [En zymatic activity/volume] in Serum or PlasmaOrdered By: Elif Carroll on 11-13-2024 ALT [Catalytic activity/Vol] 14 U/L Normal 7-52 [facility] Comment on above: Performed By: #### M G, SCAN CBC, CMP #### [facility] [address] [place] [address] [place] Albumin [Mass/volume] in Ser um or Plasma by Bromocresol green (BCG) dye binding methoOrdered By: Elif Carroll on 11-13-2024 Albumin BCG dye [Mass/Vol] 4.2 g/dL 3.5-5.7 [facility] Alkaline phosphatase [Enzyma tic activity/volume] in Serum or PlasmaOrdered By: Elif Carroll on 11-13-2024 ALP [Catalytic activity/Vol] 80 U/L Normal 34-104 [facility] Comment on above: Performed By: #### M G, SCAN CBC, CMP #### [facility] [address] [place] [address] [place] Aspartate aminotransferase [ Enzymatic activity/volume] in Serum or PlasmaOrdered By: Elif Carroll on 11-13-2024 AST [Catalytic activity/Vol] 15 U/L Normal 13-39 [facility] Comment on above: Performed By: #### M G, SCAN CBC, CMP #### [facility] [address] [place] [address] [place] Basophils [#/volume] in Bloo d by Automated countOrdered By: Elif Carroll on 11-13-2024 Basophils (Bld) [#/Vol] 0.0 10*3/uL Normal 0.0-0.2 [facility] Comment on above: Performed By: #### M G, SCAN CBC, CMP #### [facility] [address] [place] [address] [place] Basophils/100 leukocytes in Blood by Automated countOrdered By: Elif Carroll on 11-13-2024 Basophils/100 WBC (Bld) 0.5 % Normal . [facility] Comment on above: Performed By: #### M G, SCAN CBC, CMP #### [facility] [address] Bilirubin.total [Mass/volume ] in Serum or PlasmaOrdered By: Elif Carroll on 11-13-2024 Bilirubin [Mass/Vol] 0.4 mg/dL Normal 0.3-1.0 [facility] Comment on above: Performed By: #### M G, SCAN CBC, CMP #### [facility] [address] Calcium [Mass/volume] in Ser um or PlasmaOrdered By: Elif Carroll on 11-13-2024 Calcium [Mass/Vol] 9.3 mg/dL Normal 8.6-10.3 [facility] Comment on above: Performed By: #### M G, SCAN CBC, CMP #### [facility] [address] Capillary blood glucose juan urement by glucometer (mass/volume)Ordered By: Talib Fautsin on 11-13-2024 Glucose [Mass/Vol] 114 mg/dL Normal [facility] Comment on above: Random Glucose Refer ence Range is dependent on time and content of last meal. Glucose of more than 200 mg/dL in a nonstressed, ambulatory subject supports the diagnosis of Diabetes Mellitus. Result Comment: [place] Glucose Reference Range is dependent on time and content of last meal. Glucose of more than 200 mg/dL in a nonstressed, ambulatory subject supports the diagnosis of Diabetes Mellitus. PERFORMED BY: [address] [place] [address] PATHOLOGIST PROOF CARRIER AD ROSENBAUM M.D. Performed By: #### G LULS #### Point of Care testing , Carbon dioxide, total [Moles /volume] in Serum or PlasmaOrdered By: Elif Carroll on 11-13-2024 CO2 [Moles/Vol] 26.6 mmol/L Normal 21.0-31.0 [facility] Comment on above: Performed By: #### M G, SCAN CBC, CMP #### [address] Chloride [Moles/volume] in S stephanie or PlasmaOrdered By: Elif Carroll on 11-13-2024 Chloride [Moles/Vol] 104 mmol/L Normal 98-107 [facility] Comment on above: Performed By: #### M G, SCAN CBC, CMP #### [address] Comprehensive Metabolic Pane obdulio 11-13-2024 Albumin [Mass/Vol] 4.2 g/dL Normal 3.5-5.7 [facility] Comment on above: Performed By: #### M G, SCAN CBC, CMP #### [address] Creatinine Clr Calc Pharmacy 60.92 Normal [facility] Comment on above: Performed By: #### M G, SCAN CBC, CMP #### [place] [address] [place] GFR/1.73 sq M.predicted MDRD (S/P/Bld) [Vol rate/Area] mL/min/{1.73_m2} Normal [facility] Comment on above: Performed By: #### M G, SCAN CBC, CMP #### [address] Creatinine [Mass/volume] in Serum or PlasmaOrdered By: Elif Carroll on 11-13-2024 Creatinine [Mass/Vol] 0.80 mg/dL Normal 0.70-1.30 [facility] Comment on above: Performed By: #### M G, SCAN CBC, CMP #### [place] [address] [place] Eosinophils [#/volume] in Bl ood by Automated countOrdered By: Elif Carroll on 11-13-2024 Eosinophils (Bld) [#/Vol] 0.2 10*3/uL Normal 0.0-0.45 [facility] Comment on above: Performed By: #### M G, SCAN CBC, CMP #### [place] [address] [place] Eosinophils/100 leukocytes i n Blood by Automated countOrdered By: Elif Carroll on 11-13-2024 Eosinophils/100 WBC (Bld) 2.9 % Normal . [facility] Comment on above: Performed By: #### M G, SCAN CBC, CMP #### [facility] [address] Erythrocyte distribution wid th [Ratio] by Automated countOrdered By: Elif Carroll on 11-13-2024 Erythrocyte distribution width (RBC) [Ratio] 14.7 % Normal 12.0-14.8 [facility] Comment on above: Performed By: #### M G, SCAN CBC, CMP #### [facility] [address] Erythrocyte morphology findi ng [Identifier] in BloodOrdered By: Elif Carroll on 11-13-2024 RBC morphology finding Nom (Bld) Normal Normal Normal [facility] Comment on above: Performed By: #### M G, SCAN CBC, CMP #### [facility] [address] Erythrocytes [#/volume] in B lood by Automated countOrdered By: Elif Carroll on 11-13-2024 RBC (Bld) [#/Vol] 4.11 10*6/uL Normal 3.90-5.60 [facility] Comment on above: Performed By: #### M G, SCAN CBC, CMP #### [facility] [address] [place] [address] [place] Glucose [Mass/volume] in Ser um or PlasmaOrdered By: Elif Carroll on 11-13-2024 Glucose [Mass/Vol] 108 mg/dL High 70-100 [facility] Comment on above: ADA recommended refe rence rangeRandom Glucose Reference Range is dependent on time and content of last meal. Glucose of more than 200 mg/dL in a nonstressed, ambulatory subject supports the diagnosis of Diabetes Mellitus. Result Comment: [place] om Glucose Reference Range is dependent on time and content of last meal. Glucose of more than 200 mg/dL in a nonstressed, ambulatory subject supports the diagnosis of Diabetes Mellitus. ADA recommended reference range Performed By: #### M G, SCAN CBC, CMP #### [address] Hematocrit [Volume Fraction] of Blood by Automated countOrdered By: Elif Carroll on 11-13-2024 Hematocrit (Bld) [Volume fraction] 38.5 % Low 38.8-50.0 [facility] Comment on above: Performed By: #### M G, SCAN CBC, CMP #### [facility] [address] [place] [address] Hemoglobin [Mass/volume] in BloodOrdered By: Elif Carroll on 11-13-2024 Hemoglobin (Bld) [Mass/Vol] 12.8 g/dL Low 13.0-17.0 [facility] Comment on above: Performed By: #### M G, SCAN CBC, CMP #### [address] Leukocytes [#/volume] correc suzy for nucleated erythrocytes in Blood by Automated counOrdered By: Elif Carroll on 11-13-2024 WBC corrected for nucl RBC Auto (Bld) [#/Vol] 8.5 10*3/uL 4.1-10.5 [facility] Leukocytes [#/volume] in Blo od by Automated countOrdered By: Elif Carroll on 11-13-2024 WBC (Bld) [#/Vol] 8.5 10*3/uL Normal 4.1-10.5 [facility] Comment on above: Performed By: #### M G, SCAN CBC, CMP #### [facility] [address] [place] [address] [place] Lymphocytes [#/volume] in Bl ood by Automated countOrdered By: Elif Carroll on 11-13-2024 Lymphocytes (Bld) [#/Vol] 1.9 10*3/uL Normal 1.00-4.8 [facility] Comment on above: Performed By: #### M G, SCAN CBC, CMP #### [place] [address] [place] Lymphocytes/100 leukocytes i n Blood by Automated countOrdered By: Elif Carroll on 11-13-2024 Lymphocytes/100 WBC (Bld) 22.1 % Normal . [facility] Comment on above: Performed By: #### M G, SCAN CBC, CMP #### [facility] [address] [place] [address] MCH [Entitic mass] by Automa suzy countOrdered By: Elif Carroll on 11-13-2024 MCH (RBC) [Entitic mass] 31.1 pg Normal 27.5-35.2 [facility] Comment on above: Performed By: #### M G, SCAN CBC, CMP #### [address] MCHC Auto (RBC) [Mass/Vol]Or dered By: Elif Carroll on 11-13-2024 MCHC (RBC) [Mass/Vol] 33.2 g/dL 32.5-35.6 [facility] MCV [Entitic volume] by Auto mated countOrdered By: Elif Carroll on 11-13-2024 MCV (RBC) [Entitic vol] 93.7 fL Normal 83.5-101 [facility] Comment on above: Performed By: #### M G, SCAN CBC, CMP #### [address] Magnesium [Mass/volume] in S stephanie or PlasmaOrdered By: Elif Carroll on 11-13-2024 Magnesium [Mass/Vol] 2.1 mg/dL Normal 1.9-2.7 [facility] Comment on above: Result Comment: PERF ORMED BY: [place] [address] PATHOLOGIST PROOF CARRIER AD ROSENBAUM M.D. Performed By: #### M G, SCAN CBC, CMP #### [address] Monocytes [#/volume] in Bloo d by Automated countOrdered By: Elif Carroll on 11-13-2024 Monocytes (Bld) [#/Vol] 0.8 10*3/uL Normal 0.0-0.8 [facility] Comment on above: Performed By: #### M G, SCAN CBC, CMP #### [place] [address] [place] Monocytes/100 leukocytes in Blood by Automated countOrdered By: Elif Carroll on 11-13-2024 Monocytes/100 WBC (Bld) 9.2 % Normal . [facility] Comment on above: Performed By: #### M G, SCAN CBC, CMP #### [place] [address] [place] Neutrophils [#/volume] in Bl ood by Automated countOrdered By: Elif Carroll on 11-13-2024 Neutrophils (Bld) [#/Vol] 5.6 10*3/uL Normal 1.8-7.7 [facility] Comment on above: Performed By: #### M G, SCAN CBC, CMP #### [address] Neutrophils/100 leukocytes i n Blood by Automated countOrdered By: Elif Carroll on 11-13-2024 Neutrophils/100 WBC (Bld) 65.3 % Normal . [facility] Comment on above: Performed By: #### M G, SCAN CBC, CMP #### [address] No Panel InformationOrdered By: Elif Carroll on 11-13-2024 Estimated GFR (CKD-EPI) > 60.0 mL/Min [facility] Creatinine Clearance (Chem 60.92 [facility] Nucleated erythrocytes [Pres ence] in Blood by Automated countOrdered By: Elif Carroll on 11-13-2024 Nucleated RBC Auto Ql (Bld) 0.2 /100{WBC} 0-0.5 [facility] PET tumor subq tx strat sb-m ton 11-13-2024 PET tumor subq tx strat sb-mt [facility] [place] [address] [place] [address] Nuclear Medicine Report Signed Patient: Jeremie Bennett MR#: [id number] 669 : 1940 Acct:[id number] Age/Sex: 84 / M ADM Date: 11/23/24 Loc: Room: Type: [facility] Attending Dr: Talib Faustin MD Copies to: [...] Jr., D.OAidan 11/13/2024 3:50 PM Dictation Location: [place] [address] Transcribed By: [facility] 11/13/24 1550 Dictated By: Mario Urias Jr, DO 11/13/24 1539 Signed By: 11/13/24 1550 Normal [facility] Platelet adequacy [Presence] in Blood by Light microscopyOrdered By: Elif Carroll on 11-13-2024 Platelets LM Ql (Bld) Normal Normal [facility] Platelet mean volume [Entiti c volume] in Blood by Automated countOrdered By: Elif Carroll on 11-13-2024 Platelet mean volume (Bld) [Entitic vol] 8.4 fL Normal 6.6-10.1 [facility] Comment on above: Performed By: #### M G, SCAN CBC, CMP #### [facility] [address] [place] [address] Platelet morphology finding [Identifier] in BloodOrdered By: Elif Carroll on 11-13-2024 Platelet morphology finding Nom (Bld) Normal Normal [facility] Platelets [#/volume] in Bloo d by Automated countOrdered By: Elif Carroll on 11-13-2024 Platelets (Bld) [#/Vol] 223 10*3/uL Normal 150-450 [facility] Comment on above: Performed By: #### M G, SCAN CBC, CMP #### [facility] [address] Potassium [Moles/volume] in Serum or PlasmaOrdered By: Elif Carroll on 11-13-2024 Potassium [Moles/Vol] 4.2 mmol/L Normal 3.5-5.1 [facility] Comment on above: Performed By: #### M G, SCAN CBC, CMP #### [facility] [address] Protein [Mass/volume] in Ser um or PlasmaOrdered By: Elif Carroll on 11-13-2024 Protein [Mass/Vol] 7.3 g/dL Normal 6.4-8.9 [facility] Comment on above: Performed By: #### M G, SCAN CBC, CMP #### [facility] [address] Scan and CBCon 11-13-2024 Mean Corpuscular HGB Conc 33.2 g/dL Normal 32.5-35.6 [facility] Comment on above: Performed By: #### M G, SCAN CBC, CMP #### [facility] [address] NRBC% 0.2 /100{WBC} Normal 0-0.5 [facility] Comment on above: Performed By: #### M G, SCAN CBC, CMP #### [facility] [address] Platelet Estimate Normal Normal Normal [facility] Comment on above: Performed By: #### M G, SCAN CBC, CMP #### [facility] [address] Platelet Morphology Normal Normal Normal [facility] Comment on above: Result Comment: PERF ORMED BY: [place] [address] PATHOLOGIST PROOF CARRIER AD ROSENBAUM M.D. Performed By: #### M G, SCAN CBC, CMP #### [address] White Blood Count 8.5 [CFU]/mL Normal 4.1-10.5 [facility] Comment on above: Performed By: #### M G, SCAN CBC, CMP #### [address] Serum globulin measurement b y calculation (mass/volume)Ordered By: Elif Carroll on 11-13-2024 Globulin (S) [Mass/Vol] 3.1 g/dL [facility] Comment on above: Performed By: #### M G, SCAN CBC, CMP #### [address] Serum or plasma albumin/glob ulin mass ratioOrdered By: Elif Carroll on 11-13-2024 Albumin/Globulin [Mass ratio] 1.4 {ratio} [facility] Comment on above: Performed By: #### M G, SCAN CBC, CMP #### [address] Serum or plasma anion gap de terminationOrdered By: Elif Carroll on 11-13-2024 Anion gap [Moles/Vol] 10.6 mmol/L Normal 6.0-15.0 [facility] Comment on above: Performed By: #### M G, SCAN CBC, CMP #### [address] Sodium [Moles/volume] in Ser um or PlasmaOrdered By: Elif Carroll on 11-13-2024 Sodium [Moles/Vol] 137 mmol/L Normal 136-145 [facility] Comment on above: Performed By: #### M G, SCAN CBC, CMP #### [address] Urea nitrogen [Mass/volume] in Serum or PlasmaOrdered By: Elif Carroll on 11-13-2024 Urea nitrogen [Mass/Vol] 29 mg/dL High 7-25 [facility] Comment on above: Performed By: #### M G, SCAN CBC, CMP #### [facility] [address] Ambulatory Visit Summaryon 0 2024 Ambulatory [...] Film) fluticasone nasal (fluticasone Nasal 0.05 mg/inh [place]) furosemide (furosemide 20 mg Tab) irbesartan (irbesartan [...] Appointments Wednesday 2:30 PM EDT With: Where: [address] [address]- Wednesday 1:20 PM EDT With: Hermes CASON, Demetrius Rosa Where: [address] [address]- Medications What How Much When Instructions Unchanged nystatin (nystatin 100,000 units/ mL Oral Susp) 4 Milliliter By Mouth 4 times a day Pickup at [facility] #[id number] Unchanged albuterol (Albuterol (Eqv-ProAir HFA) 90 mcg/ [...] fluticasone nasal (fluticasone Nasal 0.05 mg/ inh [place]) See instructions USE 1 SPRAY IN BOTH [...] CAPSULE BY (more content not included)... Normal [facility] Family Medicine Office/Clini c Noteon 2024 [...] QID, # 112 mL, Refills(s) 1, Pharmacy: [id number], 160, cm, 10/30/24 17:38:00 EDT, Height/Length Dosing, [...] to opioid therapy Coronary artery disease involving [place] coronary artery of [place] heart without angina pectoris Diabetic autonomic neuropathy [...] patch(es), Topical, q72hr fluticasone Nasal 0.05 mg/inh [place], See Instructions furosemide 20 mg Tab, 20 mg= 1 tab(s), Oral, Daily irbesartan 300 mg Tab, 300 mg= 1 tab(s), Oral, Daily isosorbide mononitrate, 30 mg, Oral, qAM latanoprost Opth 0.005% Janee metformin 500 mg ER T (more content not included)... Normal [facility] Comment on above: Result Comment: Elec [...] Film) fluticasone nasal (fluticasone Nasal 0.05 mg/inh [place]) furosemide (furosemide 20 mg Tab) irbesartan (irbesartan [...] Appointments Wednesday 2:30 PM EDT With: Where: [address] [address]- Wednesday 3:20 PM EDT With: Hermes CASON, Demetrius Rosa Where: [facility] [address] [address]- Medications What How Much When Instructions Unchanged [...] fluticasone nasal (fluticasone Nasal 0.05 mg/ inh [place]) See instructions USE 1 SPRAY IN BOTH [...] to opioid therapy Coronary artery disease involving [place] coronary artery of [place] heart without angina pectoris Diabetic autonomic neuropathy associated with type 2 diabetes mellitus Diverticulosis FH: stomach can (more content not included)... Normal [facility] Ambulatory Visit Summary Ambulatory Visit Summary [...] Film) fluticasone nasal (fluticasone Nasal 0.05 mg/inh [place]) furosemide (furosemide 20 mg Tab) irbesartan (irbesartan [...] Appointments Wednesday 2:30 PM EDT With: Where: [address] [address]- Wednesday 3:20 PM EDT With: Hermes CASON, Demetrius Rosa Where: [address] [address]- Medications What How Much When Instructions Unchanged [...] fluticasone nasal (fluticasone Nasal 0.05 mg/ inh [place]) See instructions USE 1 SPRAY IN BOTH [...] to opioid therapy Coronary artery disease involving [place] coronary artery of [place] heart without angina pectoris Diabetic autonomic neuropathy associated with type 2 diabetes mellitus Diverticulosis FH: stomach cancer Former smoker GERD with apnea Gla (more content not included)... Normal [facility] Family Medicine Office/Clini c Noteon 10-12-2024 Family [...] to opioid therapy Coronary artery disease involving [place] coronary artery of [place] heart without angina pectoris Diabetic autonomic neuropathy [...] habits Procedure/Surgical (more content not included)... Normal [facility] Comment on above: Result Comment: Elec tronically Signed By: Hermes CASON, Demetrius Rosa\.marco a\Date and Time Signed: 10/12/24 15:08 EDT Capillary blood glucose juan urement by glucometer (mass/volume)Ordered By: Veena Adkins on 10-03-2024 Glucose [Mass/Vol] 103 mg/dL Normal [facility] Comment on above: Random Glucose Refer ence Range is dependent on time and content of last meal. Glucose of more than 200 mg/dL in a nonstressed, ambulatory subject supports the diagnosis of Diabetes Mellitus. Result Comment: [facility] Glucose Reference Range is dependent on time and content of last meal. Glucose of more than 200 mg/dL in a nonstressed, ambulatory subject supports the diagnosis of Diabetes Mellitus. Performed By: #### G LULS #### Point of Care testing , GLUCOSE POCT GLUCOMETERSon 0 10-03-2024 COMMEMT1 Glu2: Cleaned Meter [facility] Glucose [Mass/Vol] 103 mg/dL [facility] Comment on above: Random Glucose Refer ence Range is dependent on time and content of last meal. Glucose of more than 200 mg/dL in a nonstressed, ambulatory subject supports the diagnosis of Diabetes Mellitus. [facility] Glucose Poct Glucometerson 0 10-03-2024 Commemt1 Glu2: Cleaned Meter Normal [facility] Comment on above: Result Comment: PERF ORMED BY: [facility] [address] [place] [address] PATHOLOGIST PROOF CARRIER HEBER SHANNON M.D. Performed By: #### G LULS #### Point of Care testing , No Panel InformationOrdered By: Veena Adkins on 10-03-2024 Bedside Glucose Comment Glu2: cleaned meter [facility] Family Medicine Office/Clini c Noteon 09-28-2024 Family Medicine Office/Clinic Note Family Medicine Office/Clinic Note Chief Complaint ER follow up Abdominal pain and difficulty swallowing [facility] Staff 2 week follow up to RUQ pain. Liver US ordered @ [facility]. Instructed to get done if pain worsens. Has since then gone to [facility] ER CC: abdominal pain & constipation States [...] day(s), # 140 mL, Refills(s) 0, Pharmacy: [id number], 160, cm, 09/28/24 14:41:00 EDT, Height/Length Dosing, [...] oral thrush. I prescribed Nystatin in a cnqlb-[id number]-lbibyfa method to effectively address the thrush symptoms [...] to opioid therapy Coronary artery disease involving [place] coronary artery of [place] heart without angina pectoris Diabetic autonomic neuropathy associated with type 2 diabetes mellitus Diverticulo (more content not included)... Normal [facility] Comment on above: Result Comment: Elec tronically Signed By: Hermes CASON, Demetrius Branham.br\Date and Time Signed: 09/28/24 15:12 EDT Alanine aminotransferase [En zymatic activity/volume] in Serum or PlasmaOrdered By: Maru Hayes on 09-20-2024 ALT [Catalytic activity/Vol] Alanine aminotransferase [Enzymatic activity/volume] in Serum or Plasma 7-52 [facility] ALT [Catalytic activity/Vol] 9 U/L Normal [facility] Comment on above: Performed By: #### M G, SCAN CBC, CMP #### [facility] [address] Albumin [Mass/volume] in Ser um or Plasma by Bromocresol green (BCG) dye binding methoOrdered By: Maru Hayes on 09-20-2024 Albumin BCG dye [Mass/Vol] Albumin [Mass/volume] in Serum or Plasma by Bromocresol green (BCG) dye binding metho 3.5-5.7 [facility] Albumin BCG dye [Mass/Vol] 3.5 g/dL 3.5-5.7 [facility] Alkaline phosphatase [Enzyma tic activity/volume] in Serum or PlasmaOrdered By: Maru Hayes on 09-20-2024 ALP [Catalytic activity/Vol] Alkaline phosphatase [Enzymatic activity/volume] in Serum or Plasma 34 [facility] ALP [Catalytic activity/Vol] 81 U/L Normal [facility] Comment on above: Performed By: #### M G, SCAN CBC, CMP #### [facility] [address] Appearance of UrineOrdered B y: Maru Hayes on 09-20-2024 Appearance (U) Urine appearance Clear [facility] Appearance (U) Clear Normal Clear [facility] Comment on above: Order Comment: Name Collection Type:: Clean-Voided Midstream Performed By: #### U A #### [facility] [address] Aspartate aminotransferase [ Enzymatic activity/volume] in Serum or PlasmaOrdered By: Maru Haeys on 09-20-2024 AST [Catalytic activity/Vol] Aspartate aminotransferase [Enzymatic activity/volume] in Serum or Plasma [facility] AST [Catalytic activity/Vol] 14 U/L Normal [facility] Comment on above: Performed By: #### M G, SCAN CBC, CMP #### [facility] [address] Basic Metabolic Panelon 05-0 Creatinine Clr Calc Pharmacy 59.79 Normal [facility] Comment on above: Performed By: #### M G, SCAN CBC, CMP #### [address] GFR/1.73 sq M.predicted MDRD (S/P/Bld) [Vol rate/Area] mL/min/{1.73_m2} Normal [facility] Comment on above: Performed By: #### M G, SCAN CBC, CMP #### [address] Basophils Auto (Bld) [#/Vol] Ordered By: Maur Hayes on 09-20-2024 Basophils (Bld) [#/Vol] Automated basophil count 0.0-0.2 [facility] Basophils [#/volume] in Bloo d by Automated countOrdered By: Maru Hayes on 09-20-2024 Basophils (Bld) [#/Vol] 0.1 10*3/uL Normal 0.0-0.2 [facility] Comment on above: Result Comment: PERF ORMED BY: [place] [address] PATHOLOGIST PROOF CARRIER HEBER SHANNON M.D. Performed By: #### M G, SCAN CBC, CMP #### [address] Basophils/100 WBC Auto (Bld) Ordered By: Maru Hayes on 09-20-2024 Basophils/100 WBC (Bld) Automated basophil % . [facility] Basophils/100 leukocytes in Blood by Automated countOrdered By: Maru Hayes on 09-20-2024 Basophils/100 WBC (Bld) 1.2 % Normal . [facility] Comment on above: Performed By: #### M G, SCAN CBC, CMP #### [address] Bilirubin Test strip Ql (U)O rdered By: Maru Hayes on 09-20-2024 Bilirubin Ql (U) Bilirubin.total [Presence] in Urine by Test strip Negative [facility] Bilirubin Ql (U) Negative Negative [facility] Bilirubin.direct [Mass/volum e] in Serum or PlasmaOrdered By: Maru Hayes on 09-20-2024 Bilirubin.direct [Mass/Vol] Bilirubin.direct [Mass/volume] in Serum or Plasma 0.03-0.18 [facility] Bilirubin.direct [Mass/Vol] 0.10 mg/dL 0.03-0.18 [facility] Bilirubin.total [Mass/volume ] in Serum or PlasmaOrdered By: Maru Hayes on 09-20-2024 Bilirubin [Mass/Vol] Bilirubin.total [Mass/volume] in Serum or Plasma 0.3-1.0 [facility] Bilirubin [Mass/Vol] 0.5 mg/dL Normal 0.3-1.0 [facility] Comment on above: Performed By: #### M G, SCAN CBC, CMP #### [address] abdomen pelvis w conon CT abdomen pelvis w con [facility] [place] [address] [place] [address] CT Scan Report Signed Patient: Jeremie Bennett MR#: [id number] 669 : 1940 Acct:[id number] Age/Sex: 83 / M ADM Date: 09/20/24 Loc: ER Room: Type: [facility] ER Attending Dr: Copies to: Maru Hayes [...] Gordon M.D. 09/20/2024 8:03 PM Dictation Location: [place] [address] Transcribed By: [facility] 09/20/242002 Dictated By: Rafi Gordon II, MD 09/20/241947 Signed By: 09/20/242002 Normal [facility] Calcium [Mass/volume] in Ser um or PlasmaOrdered By: Maru Hayes on 09-20-2024 Calcium [Mass/Vol] Calcium [Mass/volume ] in Serum or Plasma 8.6-10.3 [facility] Calcium [Mass/Vol] 9.5 mg/dL Normal 8.6-10.3 [facility] Comment on above: Performed By: #### M G, SCAN CBC, CMP #### [address] Carbon dioxide, total [Moles /volume] in Serum or PlasmaOrdered By: Maru Hayes on 09-20-2024 CO2 [Moles/Vol] Carbon dioxide, tota l [Moles/volume] in Serum or Plasma 21.0-31.0 [facility] CO2 [Moles/Vol] 26.8 mmol/L Normal 21.0-31.0 [facility] Comment on above: Performed By: #### M G, SCAN CBC, CMP #### [facility] [address] Chloride [Moles/volume] in S stephanie or PlasmaOrdered By: Maru Hayes on 09-20-2024 Chloride [Moles/Vol] Chloride [Moles/vol ume] in Serum or Plasma 98-107 [facility] Chloride [Moles/Vol] 104 mmol/L Normal 98-107 [facility] Comment on above: Performed By: #### M G, SCAN CBC, CMP #### [address] Color Auto (U)Ordered By: Ronald Hayes on 09-20-2024 Color (U) Color of Urine by Auto Yellow [facility] Color of Urine by AutoOrdere d By: Maru Hayes on 09-20-2024 Color (U) Light-yellow Normal Yellow [facility] Comment on above: Order Comment: Name Collection Type:: Clean-Voided Midstream Performed By: #### U A #### [address] Complete Blood Count Auto Di ffon 09-20-2024 Mean Corpuscular HGB Conc 33.3 g/dL Normal 32.5-35.6 [facility] Comment on above: Performed By: #### M G, SCAN CBC, CMP #### [facility] [address] [place] [address] [place] Monocytes/100 WBC (Bld) 22.62 % High 0.00-20.00 [facility] Comment on above: Result Comment: For adults in ED, MDW > 20.0 may be associated with a higher risk of sepsis during the first 12 hrs of hospital admission Performed By: #### M G, SCAN CBC, CMP #### [facility] [address] [place] [address] [place] NRBC% 0.0 /100{WBC} Normal 0-0.5 [facility] Comment on above: Performed By: #### M G, SCAN CBC, CMP #### [facility] [address] Creatinine [Mass/volume] in Serum or PlasmaOrdered By: Maru Hayes on 09-20-2024 Creatinine [Mass/Vol] Creatinine [Mass/v olume] in Serum or Plasma 0.70-1.30 [facility] Creatinine [Mass/Vol] 0.70 mg/dL Normal 0.70-1.30 [facility] Comment on above: Performed By: #### M G, SCAN CBC, CMP #### [facility] [address] ECG 12 lead ECGon 09-20-2024 ECG 12 lead ECG [facility] [place] [address] [place] [address] Electrocardiograph Report Signed Patient: Jeremie Bennett MR#: [id number] 669 : 1940 Acct:[id number] Age/Sex: 83 / M ADM Date: 09/20/24 Loc: ER Room: Type: [facility] ER Attending Dr: Ordering Provider: Maru Hayes [...] Abnormal ECG Confirmed by Maru Hayes MD ([id number]) on 09/20/2024 11:00:16 PM Referred By: Electronically Signed By: Maru Hayes MD Transcribed By: [facility] Signed By Maru Hayes MD 12/08 2300 Normal [facility] Eosinophils Auto (Bld) [#/Vo l]Ordered By: Maru Hayes on 09-20-2024 Eosinophils (Bld) [#/Vol] Automated eosinophil count 0.0-0.45 [facility] Eosinophils [#/volume] in Bl ood by Automated countOrdered By: Maru Hayes on 09-20-2024 Eosinophils (Bld) [#/Vol] 0.3 10*3/uL Normal 0.0-0.45 [facility] Comment on above: Performed By: #### M G, SCAN CBC, CMP #### [facility] [address] Eosinophils/100 WBC Auto (Bl d)Ordered By: Maru Hayes on 09-20-2024 Eosinophils/100 WBC (Bld) Automated eosinophil % . [facility] Eosinophils/100 leukocytes i n Blood by Automated countOrdered By: Maru Hayes on 09-20-2024 Eosinophils/100 WBC (Bld) 2.5 % Normal . [facility] Comment on above: Performed By: #### M G, SCAN CBC, CMP #### [facility] [address] Erythrocyte distribution wid th Auto (RBC) [Ratio]Ordered By: Maru Hayes on 09-20-2024 Erythrocyte distribution width (RBC) [Ratio] Erythrocyte distribution width [Ratio] by Automated count High 12.0-14.8 [facility] Erythrocyte distribution wid th [Ratio] by Automated countOrdered By: Maru Hayes on 09-20-2024 Erythrocyte distribution width (RBC) [Ratio] 15.9 % High 12.0-14.8 [facility] Comment on above: Performed By: #### M G, SCAN CBC, CMP #### [facility] [address] Erythrocytes [#/volume] in B lood by Automated countOrdered By: Maru Hayes on 09-20-2024 RBC (Bld) [#/Vol] 3.85 10*6/uL Low 3.90-5.60 [facility] Comment on above: Performed By: #### M G, SCAN CBC, CMP #### [facility] [address] Globulin Calc (S) [Mass/Vol] Ordered By: Maru Hayes on 09-20-2024 Globulin (S) [Mass/Vol] Serum globulin measurement by calculation (mass/volume) [facility] Glucose [Mass/volume] in Ser um or PlasmaOrdered By: Maru Hayes on 09-20-2024 Glucose [Mass/Vol] Glucose [Mass/volume ] in Serum or Plasma High 70-100 [facility] Comment on above: ADA recommended refe rence rangeRandom Glucose Reference Range is dependent on time and content of last meal. Glucose of more than 200 mg/dL in a nonstressed, ambulatory subject supports the diagnosis of Diabetes Mellitus. Glucose [Mass/Vol] 105 mg/dL High 70-100 [facility] Comment on above: ADA recommended refe rence rangeRandom Glucose Reference Range is dependent on time and content of last meal. Glucose of more than 200 mg/dL in a nonstressed, ambulatory subject supports the diagnosis of Diabetes Mellitus. Result Comment: [place] [facility] Glucose Reference Range is dependent on time and content of last meal. Glucose of more than 200 mg/dL in a nonstressed, ambulatory subject supports the diagnosis of Diabetes Mellitus. ADA recommended reference range Performed By: #### M G, SCAN CBC, CMP #### [facility] [address] Glucose [Mass/volume] in Uri ne by Test stripOrdered By: Maru Hayes on 09-20-2024 Glucose Test strip (U) [Mass/Vol] Glucose [Mass/volume] in Urine by Test strip Normal [facility] Glucose Test strip (U) [Mass/Vol] Normal mg/dL Normal [facility] Hematocrit Auto (Bld) [Volum e fraction]Ordered By: Maru Hayes on 09-20-2024 Hematocrit (Bld) [Volume fraction] Hematocrit [Volume Fraction] of Blood by Automated count Low 38.8-50.0 [facility] Hematocrit [Volume Fraction] of Blood by Automated countOrdered By: Maur Hayes on 09-20-2024 Hematocrit (Bld) [Volume fraction] 35.3 % Low 38.8-50.0 [facility] Comment on above: Performed By: #### M G, SCAN CBC, CMP #### [facility] [address] [place] [address] Hemoglobin Test strip Ql (U) Ordered By: Maru Hayes on 09-20-2024 Hemoglobin Ql (U) Hemoglobin [Presence ] in Urine by Test strip Negative [facility] Hemoglobin Ql (U) Negative Negative [facility] Hemoglobin [Mass/volume] in BloodOrdered By: Maru Hayes on 09-20-2024 Hemoglobin (Bld) [Mass/Vol] Hemoglobin [Mass/volume] in Blood Low 13.0-17.0 [facility] Hemoglobin (Bld) [Mass/Vol] 11.8 g/dL Low 13.0-17.0 [facility] Comment on above: Performed By: #### M G, SCAN CBC, CMP #### [facility] [address] [place] [address] Hepatic Panelon 09-20-2024 Albumin [Mass/Vol] 3.5 g/dL Normal 3.5-5.7 [facility] Comment on above: Performed By: #### M G, SCAN CBC, CMP #### [address] Bilirubin,Indirect 0.4 mg/dL Normal [facility] Comment on above: Performed By: #### M G, SCAN CBC, CMP #### [address] Bilirubin.indirect [Mass/Vol] 0.10 mg/dL Normal 0.03-0.18 [facility] Comment on above: Performed By: #### M G, SCAN CBC, CMP #### [address] Ketones Test strip Ql (U)Ord ered By: Maru Hayes on 09-20-2024 Ketones Ql (U) Ketones [Presence] i n Urine by Test strip Negative [facility] Ketones [Presence] in Urine by Test stripOrdered By: Maru Hayes on 09-20-2024 Ketones Ql (U) Negative Normal Negative [facility] Comment on above: Order Comment: Name Collection Type:: Clean-Voided Midstream Performed By: #### U A #### [address] Leukocyte esterase [Presence ] in Urine by Test stripOrdered By: Maru Hayes on 09-20-2024 Leukocyte esterase Test strip Ql (U) Leukocyte esterase [Presence] in Urine by Test strip Negative [facility] Leukocyte esterase Test strip Ql (U) Negative Normal Negative [facility] Comment on above: Order Comment: Name Collection Type:: Clean-Voided Midstream Performed By: #### U A #### [facility] [address] [place] [address] Leukocytes [#/volume] correc suzy for nucleated erythrocytes in Blood by Automated counOrdered By: Maru Hayes on 09-20-2024 WBC corrected for nucl RBC Auto (Bld) [#/Vol] Leukocytes [#/volume] corrected for nucleated erythrocytes in Blood by Automated coun High 4.1-10.5 [facility] WBC corrected for nucl RBC Auto (Bld) [#/Vol] 11.2 10*3/uL High 4.1-10.5 [facility] Leukocytes [#/volume] in Blo od by Automated countOrdered By: Maru Hayes on 09-20-2024 WBC (Bld) [#/Vol] 11.2 10*3/uL High 4.1-10.5 [facility] Comment on above: Performed By: #### M G, SCAN CBC, CMP #### [place] [address] [place] Lipase [Enzymatic activity/v olume] in Serum or PlasmaOrdered By: Maru Hayes on 09-20-2024 Lipase [Catalytic activity/Vol] Lipase [Enzymatic activity/volume] in Serum or Plasma 11.0-82.0 [facility] Lipase [Catalytic activity/Vol] 34.0 U/L Normal 11.0-82.0 [facility] Comment on above: Result Comment: PERF ORMED BY: [place] [address] PATHOLOGIST PROOF CARRIER HEBER SHANNON M.D. Performed By: #### M G, SCAN CBC, CMP #### [address] Lymphocytes Auto (Bld) [#/Vo l]Ordered By: Maru Hayes on 09-20-2024 Lymphocytes (Bld) [#/Vol] Lymphocytes [#/volume] in Blood by Automated count 1.00-4.8 [facility] Lymphocytes [#/volume] in Bl ood by Automated countOrdered By: Maru Hayes on 09-20-2024 Lymphocytes (Bld) [#/Vol] 2.8 10*3/uL Normal 1.00-4.8 [facility] Comment on above: Performed By: #### M G, SCAN CBC, CMP #### [facility] [address] Lymphocytes/100 WBC Auto (Bl d)Ordered By: Maru Hayes on 09-20-2024 Lymphocytes/100 WBC (Bld) Lymphocytes/100 leukocytes in Blood by Automated count . [facility] Lymphocytes/100 leukocytes i n Blood by Automated countOrdered By: Maru Hayes on 09-20-2024 Lymphocytes/100 WBC (Bld) 24.8 % Normal . [facility] Comment on above: Performed By: #### M G, SCAN CBC, CMP #### [facility] [address] MCH Auto (RBC) [Entitic mass ]Ordered By: Maru Hayes on 09-20-2024 MCH (RBC) [Entitic mass] MCH [Entitic mass] by Automated count 27.5-35.2 [facility] MCH [Entitic mass] by Automa suzy countOrdered By: Maru Hayes on 09-20-2024 MCH (RBC) [Entitic mass] 30.5 pg Normal 27.5-35.2 [facility] Comment on above: Performed By: #### M G, SCAN CBC, CMP #### [facility] [address] MCHC Auto (RBC) [Mass/Vol]Or dered By: Maru Hayes on 09-20-2024 MCHC (RBC) [Mass/Vol] MCHC [Mass/volume] by Automated count 32.5-35.6 [facility] MCHC (RBC) [Mass/Vol] 33.3 g/dL 32.5-35.6 [facility] MCV Auto (RBC) [Entitic vol] Ordered By: Maru Hayes on 09-20-2024 MCV (RBC) [Entitic vol] MCV [Entitic volume] by Automated count 83.5-101 [facility] MCV [Entitic volume] by Auto mated countOrdered By: Maru Hayes on 09-20-2024 MCV (RBC) [Entitic vol] 91.7 fL Normal 83.5-101 [facility] Comment on above: Performed By: #### M G, SCAN CBC, CMP #### [facility] [address] [place] [address] [place] Monocyte distribution width [Entitic volume] in Blood by AutomatedOrdered By: Maru Hayes on 09-20-2024 Monocyte distribution width Auto (Bld) [Entitic vol] Monocyte distribution width [Entitic volume] in Blood by Automated High 0.00-20.00 [facility] Comment on above: For adults in ED, MD W > 20.0 may be associated with a higher risk of sepsis during the first 12 hrs of hospital admission Monocyte distribution width Auto (Bld) [Entitic vol] 22.62 % High 0.00-20.00 [facility] Comment on above: For adults in ED, MD W > 20.0 may be associated with a higher risk of sepsis during the first 12 hrs of hospital admission Monocytes Auto (Bld) [#/Vol] Ordered By: Maru Hayes on 09-20-2024 Monocytes (Bld) [#/Vol] Automated blood monocyte count 0.0-0.8 [facility] Monocytes [#/volume] in Bloo d by Automated countOrdered By: Maru Hayes on 09-20-2024 Monocytes (Bld) [#/Vol] 0.8 10*3/uL Normal 0.0-0.8 [facility] Comment on above: Performed By: #### M G, SCAN CBC, CMP #### [facility] [address] [place] [address] [place] Monocytes/100 WBC Auto (Bld) Ordered By: Maru Hayes on 09-20-2024 Monocytes/100 WBC (Bld) Automated monocyte % . [facility] Monocytes/100 leukocytes in Blood by Automated countOrdered By: Maru Hayes on 09-20-2024 Monocytes/100 WBC (Bld) 7.2 % Normal . [facility] Comment on above: Performed By: #### M G, SCAN CBC, CMP #### [facility] [address] [place] [address] [place] Neutrophils Auto (Bld) [#/Vo l]Ordered By: Maru Hayes on 09-20-2024 Neutrophils (Bld) [#/Vol] Neutrophils [#/volume] in Blood by Automated count 1.8-7.7 [facility] Neutrophils [#/volume] in Bl ood by Automated countOrdered By: Maru Hayes on 09-20-2024 Neutrophils (Bld) [#/Vol] 7.2 10*3/uL Normal 1.8-7.7 [facility] Comment on above: Performed By: #### M G, SCAN CBC, CMP #### [facility] [address] [place] [address] [place] Neutrophils/100 WBC Auto (Bl d)Ordered By: Maru Hayes on 09-20-2024 Neutrophils/100 WBC (Bld) Automated neutrophil % . [facility] Neutrophils/100 leukocytes i n Blood by Automated countOrdered By: Maru Hayes on 09-20-2024 Neutrophils/100 WBC (Bld) 64.3 % Normal . [facility] Comment on above: Performed By: #### M G, SCAN CBC, CMP #### [facility] [address] [place] [address] Nitrite Test strip Ql (U)Ord ered By: Maru Hayes on 09-20-2024 Nitrite Ql (U) Nitrite [Presence] i n Urine by Test strip Negative [facility] Nitrite Ql (U) Negative Negative [facility] No Panel InformationOrdered By: Maru Hayes on 09-20-2024 Estimated GFR (CKD-EPI) > 60.0 mL/Min [facility] Creatinine Clearance (Chem 59.79 [facility] Nucleated erythrocytes [Pres ence] in Blood by Automated countOrdered By: Maru Hayes on 09-20-2024 Nucleated RBC Auto Ql (Bld) Nucleated erythrocytes [Presence] in Blood by Automated count 0-0.5 [facility] Nucleated RBC Auto Ql (Bld) 0.0 /100{WBC} 0-0.5 [facility] Platelet mean volume Auto (B ld) [Entitic vol]Ordered By: Maru Hayes on 09-20-2024 Platelet mean volume (Bld) [Entitic vol] Platelet mean volume [Entitic volume] in Blood by Automated count 6.6-10.1 [facility] Platelet mean volume [Entiti c volume] in Blood by Automated countOrdered By: Maru Hayes on 09-20-2024 Platelet mean volume (Bld) [Entitic vol] 8.3 fL Normal 6.6-10.1 [facility] Comment on above: Performed By: #### M G, SCAN CBC, CMP #### [facility] [address] Platelets Auto (Bld) [#/Vol] Ordered By: Maru Hayes on 09-20-2024 Platelets (Bld) [#/Vol] Platelets [#/volume] in Blood by Automated count 150-450 [facility] Platelets [#/volume] in Bloo d by Automated countOrdered By: Maru Hayes on 09-20-2024 Platelets (Bld) [#/Vol] 226 10*3/uL Normal 150-450 [facility] Comment on above: Performed By: #### M G, SCAN CBC, CMP #### [facility] [address] 09-21-19 [facility] Case Information Case Priority: None Programs: -- Referral Source: Mail Sorter Referral Reason: Care coordination Case Type: Transition [...] to opioid therapy Coronary artery disease involving [place] coronary artery of [place] heart without angina pectoris Diabetic autonomic neuropathy [...] patch(es), Topical, q72hr fluticasone Nasal 0.05 mg/inh [place], See Instructions furosemide 20 mg Tab, 20 [...] 5/, but he has not heard from [facility], a message sent to clinical for f/u. Patient denies any further questions or concerns. Communication Events Date: September 20, 2024 Method: Phone call Type: Outbound Duration (min): 3 Outcome: Case discussion Contact Type: Patient Contact Name: B (more content not included)... Normal [facility] Potassium [Moles/volume] in Serum or PlasmaOrdered By: Maru Hayes on 09-20-2024 Potassium [Moles/Vol] Potassium [Moles/v olume] in Serum or Plasma 3.5-5.1 [facility] Potassium [Moles/Vol] 4.0 mmol/L Normal 3.5-5.1 [facility] Comment on above: Performed By: #### M G, SCAN CBC, CMP #### [address] Protein Test strip (U) [Mass /Vol]Ordered By: Maru Hayes on 09-20-2024 Protein (U) [Mass/Vol] Protein [Mass/vol ume] in Urine by Test strip Negative [facility] Protein (U) [Mass/Vol] Negative Negative [facility] Protein [Mass/volume] in Ser um or PlasmaOrdered By: Maru Hayes on 09-20-2024 Protein [Mass/Vol] Protein [Mass/volume ] in Serum or Plasma 6.4-8.9 [facility] Protein [Mass/Vol] 6.4 g/dL Normal 6.4-8.9 [facility] Comment on above: Performed By: #### M G, SCAN CBC, CMP #### [facility] [address] [place] [address] RBC Auto (Bld) [#/Vol]Ordere d By: Maru Hayes on 09-20-2024 RBC (Bld) [#/Vol] Erythrocytes [#/volu me] in Blood by Automated count Low 3.90-5.60 [facility] Serum globulin measurement b y calculation (mass/volume)Ordered By: Maru Hayes on 09-20-2024 Globulin (S) [Mass/Vol] 2.9 g/dL Normal [facility] Comment on above: Performed By: #### M G, SCAN CBC, CMP #### [address] Serum or plasma albumin/glob ulin mass ratioOrdered By: Maru Hayes on 09-20-2024 Albumin/Globulin [Mass ratio] Serum or plasma albumin/globulin mass ratio [facility] Albumin/Globulin [Mass ratio] 1.2 {ratio} Normal [facility] Comment on above: Performed By: #### M G, SCAN CBC, CMP #### [facility] [address] Serum or plasma anion gap de terminationOrdered By: Maru Hayes on 09-20-2024 Anion gap [Moles/Vol] Serum or plasma an ion gap determination 6.0-15.0 [facility] Anion gap [Moles/Vol] 10.2 mmol/L Normal 6.0-15.0 [facility] Comment on above: Performed By: #### M G, SCAN CBC, CMP #### [facility] [address] Serum or plasma non-glucuron idated bilirubin measurement (mass/volume)Ordered By: Maru Hayes on 09-20-2024 Bilirubin.indirect [Mass/Vol] Serum or plasma non-glucuronidated bilirubin measurement (mass/volume) [facility] Bilirubin.indirect [Mass/Vol] 0.4 mg/dL [facility] Sodium [Moles/volume] in Ser um or PlasmaOrdered By: Maru Hayes on 09-20-2024 Sodium [Moles/Vol] Sodium [Moles/volume ] in Serum or Plasma 136-145 [facility] Sodium [Moles/Vol] 137 mmol/L Normal 136-145 [facility] Comment on above: Performed By: #### M G, SCAN CBC, CMP #### [facility] [address] Specific gravity Test strip (U) [Rel density]Ordered By: Maru Hayes on 09-20-2024 Specific gravity (U) [Rel density] Specific gravity of Urine by Test strip High 1.001-1.03 0 [facility] Specific gravity (U) [Rel density] 1.039 High 1.001-1.03 0 [facility] Troponin I High Sensitivityo n 09-20-2024 Troponin I High Sensitivity 7 Normal 0-20 [facility] Comment on above: Result Comment: The Troponin units of report have been changed to meet the Chest Pain Accreditation requirement, element EC5.M1l2. Troponin units are changed from pg/ml to ng/L. Also, the decimal is removed and results are in whole numbers. PERFORMED BY: [place] [address] PATHOLOGIST PROOF CARRIER HEBER SHANNON M.D. Performed By: #### H S TROP #### [facility] [address] [place] [address] Troponin I.cardiac [Mass/vol ume] in Serum or Plasma by Detection limit <= 0.01 ng/Ordered By: Maru Hayes on 09-20-2024 Troponin I.cardiac DL <= 0.01 ng/mL [Mass/Vol] Troponin I.cardiac [Mass/volume] in Serum or Plasma by Detection limit <= 0.01 ng/ 0 [facility] Comment on above: The Troponin units o [...] DL <= 0.01 ng/mL [Mass/Vol] 7 ng/L [facility] Comment on above: The Troponin units o f report have been changed to meet the Chest Pain Accreditation requirement, element EC5.M1l2. Troponin units are changed from pg/ml to ng/L. Also, the decimal is removed and results are in whole numbers. Urea nitrogen [Mass/volume] in Serum or PlasmaOrdered By: Maru Hayes on 09-20-2024 Urea nitrogen [Mass/Vol] Urea nitrogen [Mass/volume] in Serum or Plasma 12-08 [facility] Urea nitrogen [Mass/Vol] 20 mg/dL Normal 12-08 [facility] Comment on above: Performed By: #### M G, SCAN CBC, CMP #### [facility] [address] [place] [address] Urinalysison 09-20-2024 Bilirubin,Urine Negative Normal Negative [facility] Comment on above: Order Comment: Name Collection Type:: Clean-Voided Midstream Performed By: #### U A #### [address] Glucose Ql (U) Normal Normal Normal [facility] Comment on above: Order Comment: Name Collection Type:: Clean-Voided Midstream Performed By: #### U A #### [address] Nitrite,Urine Negative Normal Negative [facility] Comment on above: Order Comment: Name Collection Type:: Clean-Voided Midstream Performed By: #### U A #### [address] Occult Blood,Urine Negative Normal Negative [facility] Comment on above: Order Comment: Name Collection Type:: Clean-Voided Midstream Result Comment: PERF ORMED BY: [place] [address] PATHOLOGIST PROOF CARRIER HEBER SHANNON M.D. Performed By: #### U A #### [address] Protein,Urine Negative Normal Negative [facility] Comment on above: Order Comment: Name Collection Type:: Clean-Voided Midstream Performed By: #### U A #### [address] Specificy [place],Urine 1.039 High 1.001-1.03 0 [facility] Comment on above: Order Comment: Name Collection Type:: Clean-Voided Midstream Performed By: #### U A #### [address] Urobilinogen,Urine Normal Normal Normal [facility] Comment on above: Order Comment: Name Collection Type:: Clean-Voided Midstream Performed By: #### U A #### [address] Urobilinogen Test strip (U) [Mass/Vol]Ordered By: Maru Hayes on 09-20-2024 Urobilinogen (U) [Mass/Vol] Urobilinogen [Mass/volume] in Urine by Test strip Normal [facility] Urobilinogen (U) [Mass/Vol] Normal mg/dL Normal [facility] WBC Auto (Bld) [#/Vol]Ordere d By: Maru Hayes on 09-20-2024 WBC (Bld) [#/Vol] Leukocytes [#/volume ] in Blood by Automated count High 4.1-10.5 [facility] pH Test strip (U)Ordered By: Maru Hayes on 09-20-2024 pH (U) pH of Urine by Test strip 5.0-9.0 [facility] pH of Urine by Test stripOrd ered By: Maru Hayes on 09-20-2024 pH (U) 5.0 [pH] Normal 5.0-9.0 [facility] Comment on above: Order Comment: Name Collection Type:: Clean-Voided Midstream Performed By: #### U A #### [address] Ambulatory Visit Summaryon 0 09-14-2024 Ambulatory [...] Film) fluticasone nasal (fluticasone Nasal 0.05 mg/inh [place]) furosemide (furosemide 20 mg Tab) irbesartan (irbesartan [...] PM EDT With: Demetrius Cooper MD Where: [address] [address]- Wednesday 2:30 PM EDT With: Where: [address] [address]- Wednesday 3:20 PM EDT With: Demetrius Cooper MD Where: [address] [address]- Medications What How Much When [...] fluticasone nasal (fluticasone Nasal 0.05 mg/ inh [place]) See instructions USE 1 SPRAY IN BOTH [...] Cervic (more content not included)... Normal [place] [facility] Medicine Office/Clini c Noteon 09-14-2024 Family [...] to opioid therapy Coronary artery disease involving [place] coronary artery of [place] heart without angina pectoris Diabetic autonomic neuropathy [...] Cholecystectomy, Co (more content not included)... Normal [facility] Comment on above: Result Comment: Elec tronically Signed By: Hermes CASON, Demetrius Rosa\.br\Date and Time Signed: 09/14/24 07:51 EDT [facility] 09-08-19 [facility] Case Information Case Priority: None Programs: -- Referral Source: Mail Sorter Referral Reason: Care coordination Case Type: Transition [...] to opioid therapy Coronary artery disease involving [place] coronary artery of [place] heart without angina pectoris Diabetic autonomic neuropathy [...] patch(es), Topical, q72hr fluticasone Nasal 0.05 mg/inh [place], See Instructions furosemide 20 mg Tab, 20 mg= 1 tab(s), Oral, Daily Hc/Dph/Nystat/Lido/[place] Monsalve irbesartan 300 mg Tab, 300 mg= 1 tab(s), Oral, Daily isosorbide mononitrate, 30 mg, Oral, qAM latanoprost Opth 0.005% Janee metformin 500 mg ER Tab, 500 mg= 1 tab(s), Oral, Daily [facility] Pres[facility], See Instructions Misc DME Prescription, [...] mg= 1 tab(s), Oral, Daily Potassium Chloride (Kha-Liww-Qhk M20) 20 mEq oral tablet, extended release [...] magic peggy (more content not included)... Normal [facility] C Urineon 09-01-2024 Bacteria identified Cx [...] Locations R1: This test was performed at: [facility], [address] [place] [address], [id number]- , [place], [facility] Comment on above: Performed By: #### 2 [id number] #### [facility] [address] [place] [id number] Ambulatory Visit Summaryon 0 08-30-2024 Ambulatory Visit [...] Film) fluticasone nasal (fluticasone Nasal 0.05 mg/inh [place]) furosemide (furosemide 20 mg Tab) irbesartan (irbesartan [...] mL oral solution) potassium chloride (Potassium Chloride (Nau-Neym-Tmj M20) 20 mEq oral tablet, extended release) [...] Appointments Wednesday 2:30 PM EDT With: Where: [address] [address]- Wednesday 3:20 PM EDT With: Hermes CASON, Demetrius Rosa Where: [address] [address]- Medications What How Much When Instructions Unchanged [...] fluticasone nasal (fluticasone Nasal 0.05 mg/ inh [place]) See instructions USE 1 SPRAY IN BOTH [...] ondansetron (onda (more content not included)... Normal [facility] Family Medicine Office/Clini c Noteon 08-30-2024 [...] Urnls Dip Stick Auto w/o Microscopy POC [id number] 2. Urinary hesitancy (R39.11: Hesitancy of micturition) [...] to opioid therapy Coronary artery disease involving [place] coronary artery of [place] heart without angina pectoris Diabetic autonomic neuropathy [...] patch(es), Topical, q72hr fluticasone Nasal 0.05 mg/inh [place], See Instructions furosemide 20 mg Tab, 20 [...] Chloride (Eq (more content not included)... Normal [facility] Comment on above: Result Comment: Elec tronically Signed By: Yajaira Dunn.marco a\Date and Time Signed: 08/30/24 10:45 EDT Family Medicine Office/Clini c Noteon 08-24-2024 Family Medicine Office/Clinic Note Family Medicine Office/Clinic Note Chief Complaint TCM follow up The patient presents with concerns related to chemotherapy and radiation treatment for oropharyngeal carcinoma. HPI Staff Pt presents today for TCM follow up Hospital: [facility] Visit date: 08/19/24 Symptoms the patient presented [...] TCM Trans care mgmt 7 day disch [id number] 2. Aspiration pneumonia (J69.0: Pneumonitis due to inhalation of food and vomit) Patient improved after antibiotic treatment for aspiration pneumonia. Monitor respiratory status and nutritional challenges affecting swallowing. Ordered: Cardiac Rehab - Ambulatory Referral TCM Trans care mgmt 7 day disch [id number] 3. 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 Plan imaging for therapy assessment within three months. Focus on resolving sore throat impacting nutrition. Ordered: Cardiac Rehab - Ambulatory Referral TCM Trans care mgmt 7 day disch [id number] 4. 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 Schedule appropriate follow-up tests to monitor oncologic treatment outcomes. Ordered: Cardiac Rehab - Ambulatory Referral TCM Trans care mgmt 7 day disch [id number] 5. Immunosuppression (D84.9: Immunodeficiency, unspecified) Continue to see oncology Ordered: Cardiac Rehab - Ambulatory Referral TCM Trans care mgmt 7 day disch [id number] 6. 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 Evaluate non-opioid pain relief methods if feasible. Ordered: TCM Trans care mgmt 7 day disch 32703 7. Nausea (R11.0: Nausea) NO issues at this time. Ordered: TCM Trans care mgmt 7 day disch [id number] 8. BMI 27.0-27.9,adult (Z68.27: Body mass index [BMI] 27.0-27.9, adult) BMI education adde (more content not included)... Normal [facility] Comment on above: Result Comment: Elec tronically Signed By: Demetrius Cooper MD\.br\Date and Time Signed: 08/24/24 09:00 EDT Pre-Visit Planningon 025 Pre-Visit Planning Pre-Visit Planning From: Bobbi Hall To: Demetrius Cooper MD; Sent: 08/23/2024 16:27:25 EDT Subject: Pre-Visit Planning Due Date/Time: 08/23/2024 16:27:00 EDT Caller Name: JEREMIE BENNETT; Caller Number: , [place] Dr. Cooper. During a pre-visit planning chart [...] feel free to contact me at extension [phone]. Thank you! Bobbi Hall LPN Clinical Hosiery Repairer [address] [address] [address] Extension: [phone] [email or web address] From: Demetrius Cooper MD To: Bobbi Hall; Sent: 08/24/2024 11:34:18 EDT Subject: RE: Pre-Visit Planning Caller Name: JEREMIE BENNETT; Caller Number: Jane , Adrian Please add Normal [facility] Population Healthon 08-23-19 [facility] Case Information Case Priority: None Programs: -- Referral Source: Mail Sorter Referral Reason: Care coordination Case Type: Transition Care Management Risk Score: -- Case Status: Enrolled (August 22, 2024) Date Assigned: August 22, 2024 Assigned By: Galileo Tucker Date Enrolled: August 22, 2024 Assigned Primary Personnel: Galileo Tucker Assigned Secondary Personnel: -- Case Physician: Demetrius Cooper MD Problems Ongoing Bloating BMI 29.0-29.9,adult Cervical lymphadenopathy Cervical spondylosis Chronic GERD Coronary artery disease involving [place] coronary artery of [place] heart without angina pectoris Diabetic autonomic neuropathy [...] patch(es), Topical, q72hr fluticasone Nasal 0.05 mg/inh [place], See Instructions furosemide 20 mg Tab, 20 mg= 1 tab(s), Oral, Daily Hc/Dph/Nystat/[place] Monsalve irbesartan 300 mg Tab, 300 mg= 1 tab(s), Oral, Daily isosorbide mononitrate, 30 mg, Oral, qAM latanoprost Opth 0.005% Janee metformin 500 mg ER Tab, 500 mg= 1 tab(s), Oral, Daily [facility] Prescription, See Instructions [facility] Prescription, See Instructions [facility] Medication Multivitamin, Therapeutic w/ Minerals, Oral, Daily [...] Care Plan Progress Note Admit Date: 08/20/24 [facility] Date of Discharge: 08/21/24 Follow-up appointment scheduled? yes, Dr. Cooper [facility] f/u 08/24/24 at 0745 Did you [...] swallow Ar (more content not included)... Normal [facility] Alanine aminotransferase [En zymatic activity/volume] in Serum or PlasmaOrdered By: Jaiden Nance on 08-21-2024 ALT [Catalytic activity/Vol] Alanine aminotransferase [Enzymatic activity/volume] in Serum or Plasma [facility] Albumin [Mass/volume] in Ser um or Plasma by Bromocresol green (BCG) dye binding methoOrdered By: Jaiden Nance on 08-21-2024 Albumin BCG dye [Mass/Vol] Albumin [Mass/volume] in Serum or Plasma by Bromocresol green (BCG) dye binding metho Low 3.5-5.7 [facility] Alkaline phosphatase [Enzyma tic activity/volume] in Serum or PlasmaOrdered By: Jaiden Nance on 08-21-2024 ALP [Catalytic activity/Vol] Alkaline phosphatase [Enzymatic activity/volume] in Serum or Plasma 34-104 [facility] Aspartate aminotransferase [ Enzymatic activity/volume] in Serum or PlasmaOrdered By: Jaiden Nance on 08-21-2024 AST [Catalytic activity/Vol] Aspartate aminotransferase [Enzymatic activity/volume] in Serum or Plasma 13-39 [facility] Basophils Auto (Bld) [#/Vol] Ordered By: Jaiden Nance on 08-21-2024 Basophils (Bld) [#/Vol] Automated basophil count 0.0-0.2 [facility] Basophils/100 WBC Auto (Bld) Ordered By: Jaiden Nance on 08-21-2024 Basophils/100 WBC (Bld) Automated basophil % . [facility] Bilirubin.total [Mass/volume ] in Serum or PlasmaOrdered By: Jaiden Nance on 08-21-2024 Bilirubin [Mass/Vol] Bilirubin.total [Mass/volume] in Serum or Plasma 0.3-1.[address] [facility] CT chest wo conon 08-21-2024 CT chest wo con [facility] [place] [place] [address] CT Scan Report Signed Patient: Jeremie Bennett MR#: [id number] : 1940 Acct:[id number] Age/Sex: 83 / M ADM Date: 08/20/24 Loc: Room: [address] [place] [address] Type: ADM IN Attending Dr: Jaiden Nance [...] Christian Melton M.D.08/21/2024 5:58 AM Dictation Location: [place] [address] Transcribed By: [facility] 08/21/24 0558 Dictated By: Christian Melton DO 08/21/24 0555 Signed By: 08/21/24 0558 Normal [facility] Calcium [Mass/volume] in Ser um or PlasmaOrdered By: Jaiden Nance on 08-21-2024 Calcium [Mass/Vol] Calcium [Mass/volume ] in Serum or Plasma Low 8.6-10.3 [facility] Carbon dioxide, total [Moles /volume] in Serum or PlasmaOrdered By: Jaiden Nance on 08-21-2024 CO2 [Moles/Vol] Carbon dioxide, tota l [Moles/volume] in Serum or Plasma 21.0-31.0 [facility] Chloride [Moles/volume] in S stephanie or PlasmaOrdered By: Jaiden Nance on 08-21-2024 Chloride [Moles/Vol] Chloride [Moles/vol ume] in Serum or Plasma High 98-107 [facility] Complete Blood Count Auto Di ffon 08-21-2024 Basophils (Bld) [#/Vol] 0.0 10*3/uL Normal 0.0-0.2 [facility] Comment on above: Result Comment: PERF ORMED BY: [facility] [address] [place] [address] PATHOLOGIST PROOF CARRIER HEBER SHANNON M.D. Performed By: #### U A #### [address] Basophils/100 WBC (Bld) 0.6 % Normal . [facility] Comment on above: Performed By: #### U A #### [address] Eosinophils (Bld) [#/Vol] 0.1 10*3/uL Normal 0.0-0.45 [facility] Comment on above: Performed By: #### U A #### [address] Eosinophils/100 WBC (Bld) 1.0 % Normal . [facility] Comment on above: Performed By: #### U A #### [address] Erythrocyte distribution width (RBC) [Ratio] 14.8 % Normal 12.0-14.8 [facility] Comment on above: Performed By: #### U A #### [address] Hematocrit (Bld) [Volume fraction] 30.5 % Low 38.8-50.0 [facility] Comment on above: Performed By: #### U A #### [address] Hemoglobin (Bld) [Mass/Vol] 10.4 g/dL Low 13.0-17.0 [facility] Comment on above: Performed By: #### U A #### [address] Lymphocytes (Bld) [#/Vol] 0.6 10*3/uL Low 1.00-4.8 [facility] Comment on above: Performed By: #### U A #### [address] Lymphocytes/100 WBC (Bld) 9.0 % Normal . [facility] Comment on above: Performed By: #### U A #### [address] MCH (RBC) [Entitic mass] 31.3 pg Normal 27.5-35.2 [facility] Comment on above: Performed By: #### U A #### [address] MCV (RBC) [Entitic vol] 91.6 fL Normal 83.5-101 [facility] Comment on above: Performed By: #### U A #### [address] Mean Corpuscular HGB Conc 34.2 g/dL Normal 32.5-35.6 [facility] Comment on above: Performed By: #### U A #### [address] Monocytes (Bld) [#/Vol] 0.8 10*3/uL Normal 0.0-0.8 [facility] Comment on above: Performed By: #### U A #### [address] Monocytes/100 WBC (Bld) 13.6 % Normal . [facility] Comment on above: Performed By: #### U A #### [address] Neutrophils (Bld) [#/Vol] 4.7 10*3/uL Normal 1.8-7.7 [facility] Comment on above: Performed By: #### U A #### [address] Neutrophils/100 WBC (Bld) 75.8 % Normal . [facility] Comment on above: Performed By: #### U A #### [address] NRBC% 0.1 /100{WBC} Normal 0-0.5 [facility] Comment on above: Performed By: #### U A #### [address] Platelet mean volume (Bld) [Entitic vol] 8.2 fL Normal 6.6-10.[address] [facility] Comment on above: Performed By: #### U A #### [address] Platelets (Bld) [#/Vol] 190 10*3/uL Normal 150-450 [facility] Comment on above: Performed By: #### U A #### [address] RBC (Bld) [#/Vol] 3.33 10*6/uL Low 3.90-5.60 [facility] Comment on above: Performed By: #### U A #### [address] WBC (Bld) [#/Vol] 6.2 10*3/uL Normal 4.1-10.5 [facility] Comment on above: Performed By: #### U A #### [address] Comprehensive Metabolic Pane obdulio 08-21-2024 Albumin [Mass/Vol] 2.9 g/dL Low 3.5-5.7 [facility] Comment on above: Performed By: #### U A #### [address] Albumin/Globulin [Mass ratio] 1.2 {ratio} Normal [facility] Comment on above: Performed By: #### U A #### [address] ALP [Catalytic activity/Vol] 52 U/L Normal 34-104 [facility] Comment on above: Performed By: #### U A #### [address] ALT [Catalytic activity/Vol] 14 U/L Normal 7-52 [facility] Comment on above: Performed By: #### U A #### [address] Anion gap [Moles/Vol] 9.1 mmol/L Normal 6.0-15.0 [facility] Comment on above: Performed By: #### U A #### [address] AST [Catalytic activity/Vol] 15 U/L Normal 13-39 [facility] Comment on above: Performed By: #### U A #### [address] Bilirubin [Mass/Vol] 0.6 mg/dL Normal 0.3-1.0 [facility] Comment on above: Performed By: #### U A #### [address] Calcium [Mass/Vol] 8.2 mg/dL Low 8.6-10.3 [facility] Comment on above: Performed By: #### U A #### [address] Chloride [Moles/Vol] 108 mmol/L High 98-107 [facility] Comment on above: Performed By: #### U A #### [address] CO2 [Moles/Vol] 24.2 mmol/L Normal 21.0-31.0 [facility] Comment on above: Performed By: #### U A #### [address] Creatinine [Mass/Vol] 0.75 mg/dL Normal 0.70-1.30 [facility] Comment on above: Performed By: #### U A #### [address] Creatinine Clr Calc Pharmacy 59.79 Normal [facility] Comment on above: Performed By: #### U A #### [address] GFR/1.73 sq M.predicted MDRD (S/P/Bld) [Vol rate/Area] mL/min/{1.73_m2} Normal [facility] Comment on above: Performed By: #### U A #### [address] Globulin (S) [Mass/Vol] 2.4 g/dL Normal [facility] Comment on above: Performed By: #### U A #### [address] Glucose [Mass/Vol] 94 mg/dL Normal 70-100 [facility] Comment on above: Result Comment: [place] Glucose Reference Range is dependent on time and content of last meal. Glucose of more than 200 mg/dL in a nonstressed, ambulatory subject supports the diagnosis of Diabetes Mellitus. ADA recommended reference range Performed By: #### U A #### [address] Potassium [Moles/Vol] 3.3 mmol/L Low 3.5-5.1 [facility] Comment on above: Performed By: #### U A #### [address] Protein [Mass/Vol] 5.3 g/dL Low 6.4-8.9 [facility] Comment on above: Performed By: #### U A #### [address] Sodium [Moles/Vol] 138 mmol/L Normal 136-145 [facility] Comment on above: Performed By: #### U A #### [address] Urea nitrogen [Mass/Vol] 10 mg/dL Normal 7-25 [facility] Comment on above: Performed By: #### U A #### [place] [address] [place] Creatinine [Mass/volume] in Serum or PlasmaOrdered By: Jaiden Nance on 08-21-2024 Creatinine [Mass/Vol] Creatinine [Mass/v olume] in Serum or Plasma 0.70-1.30 [facility] Eosinophils Auto (Bld) [#/Vo l]Ordered By: Jaiden Nance on 08-21-2024 Eosinophils (Bld) [#/Vol] Automated eosinophil count 0.0-0.45 [facility] Eosinophils/100 WBC Auto (Bl d)Ordered By: Jaiden Nance on 08-21-2024 Eosinophils/100 WBC (Bld) Automated eosinophil % . [facility] Erythrocyte distribution wid th Auto (RBC) [Ratio]Ordered By: Jaiden Nance on 08-21-2024 Erythrocyte distribution width (RBC) [Ratio] Erythrocyte distribution width [Ratio] by Automated count 12.0-14.8 [facility] Globulin Calc (S) [Mass/Vol] Ordered By: Jaiden Nance on 08-21-2024 Globulin (S) [Mass/Vol] Serum globulin measurement by calculation (mass/volume) [facility] Glucose [Mass/volume] in Ser um or PlasmaOrdered By: Jaiden Nance on 08-21-2024 Glucose [Mass/Vol] Glucose [Mass/volume ] in Serum or Plasma 70-100 [facility] Comment on above: ADA recommended refe rence rangeRandom Glucose Reference Range is dependent on time and content of last meal. Glucose of more than 200 mg/dL in a nonstressed, ambulatory subject supports the diagnosis of Diabetes Mellitus. Hematocrit Auto (Bld) [Volum e fraction]Ordered By: Jaiden Nance on 08-21-2024 Hematocrit (Bld) [Volume fraction] Hematocrit [Volume Fraction] of Blood by Automated count Low 38.8-50.0 [facility] Hemoglobin [Mass/volume] in BloodOrdered By: Jaiden Nance on 08-21-2024 Hemoglobin (Bld) [Mass/Vol] Hemoglobin [Mass/volume] in Blood Low 13.0-17.0 [facility] Leukocytes [#/volume] correc suzy for nucleated erythrocytes in Blood by Automated counOrdered By: Jaiden Nance on 08-21-2024 WBC corrected for nucl RBC Auto (Bld) [#/Vol] Leukocytes [#/volume] corrected for nucleated erythrocytes in Blood by Automated coun 4.1-10.5 [facility] Lymphocytes Auto (Bld) [#/Vo l]Ordered By: Jaiden Nance on 08-21-2024 Lymphocytes (Bld) [#/Vol] Lymphocytes [#/volume] in Blood by Automated count Low 1.00-4.8 [facility] Lymphocytes/100 WBC Auto (Bl d)Ordered By: Jaiden Nance on 08-21-2024 Lymphocytes/100 WBC (Bld) Lymphocytes/100 leukocytes in Blood by Automated count . [facility] MCH Auto (RBC) [Entitic mass ]Ordered By: Jaiden Nance on 08-21-2024 MCH (RBC) [Entitic mass] MCH [Entitic mass] by Automated count 27.5-35.2 [facility] MCHC Auto (RBC) [Mass/Vol]Or dered By: Jaiden Nance on 08-21-2024 MCHC (RBC) [Mass/Vol] MCHC [Mass/volume] by Automated count 32.5-35.6 [facility] MCV Auto (RBC) [Entitic vol] Ordered By: Jaiden Nance on 08-21-2024 MCV (RBC) [Entitic vol] MCV [Entitic volume] by Automated count 83.5-101 [facility] Magnesiumon 08-21-2024 Magnesium [Mass/Vol] 1.8 mg/dL Low 1.9-2.7 [facility] Comment on above: Result Comment: PERF ORMED BY: [place] [address] PATHOLOGIST PROOF CARRIER HEBER SHANNON M.D. Performed By: #### U A #### [address] Magnesium [Mass/volume] in S stephanie or PlasmaOrdered By: Jaiden Nance on 08-21-2024 Magnesium [Mass/Vol] Magnesium [Mass/vol ume] in Serum or Plasma Low 1.9-2.7 [facility] Monocytes Auto (Bld) [#/Vol] Ordered By: Jaiden Nance on 08-21-2024 Monocytes (Bld) [#/Vol] Automated blood monocyte count 0.0-0.8 [facility] Monocytes/100 WBC Auto (Bld) Ordered By: Jaiden Nance on 08-21-2024 Monocytes/100 WBC (Bld) Automated monocyte % . [facility] Neutrophils Auto (Bld) [#/Vo l]Ordered By: Jaiden Nance on 08-21-2024 Neutrophils (Bld) [#/Vol] Neutrophils [#/volume] in Blood by Automated count 1.8-7.7 [facility] Neutrophils/100 WBC Auto (Bl d)Ordered By: Jaiden Nance on 08-21-2024 Neutrophils/100 WBC (Bld) Automated neutrophil % . [facility] No Panel InformationOrdered By: Jaiden Nance on 08-21-2024 Estimated GFR (CKD-EPI) > 60.0 mL/Min [facility] Creatinine Clearance (Chem 59.79 [facility] Nucleated erythrocytes [Pres ence] in Blood by Automated countOrdered By: Jaiden Nance on 08-21-2024 Nucleated RBC Auto Ql (Bld) Nucleated erythrocytes [Presence] in Blood by Automated count 0-0.5 [facility] Platelet mean volume Auto (B ld) [Entitic vol]Ordered By: Jaiden Nance on 08-21-2024 Platelet mean volume (Bld) [Entitic vol] Platelet mean volume [Entitic volume] in Blood by Automated count 6.6-10.1 [facility] Platelets Auto (Bld) [#/Vol] Ordered By: Jaiden Nance on 08-21-2024 Platelets (Bld) [#/Vol] Platelets [#/volume] in Blood by Automated count 150-450 [facility] Potassium [Moles/volume] in Serum or PlasmaOrdered By: Jaiden Nance on 08-21-2024 Potassium [Moles/Vol] Potassium [Moles/v olume] in Serum or Plasma Low 3.5-5.1 [facility] Protein [Mass/volume] in Ser um or PlasmaOrdered By: Jaiden Nance on 08-21-2024 Protein [Mass/Vol] Protein [Mass/volume ] in Serum or Plasma Low 6.4-8.9 [facility] RBC Auto (Bld) [#/Vol]Ordere d By: Jaiden Nance on 08-21-2024 RBC (Bld) [#/Vol] Erythrocytes [#/volu me] in Blood by Automated count Low 3.90-5.60 [facility] Serum or plasma albumin/glob ulin mass ratioOrdered By: Jaiden Nance 08-21-2024 Albumin/Globulin [Mass ratio] Serum or plasma albumin/globulin mass ratio [facility] Serum or plasma anion gap de terminationOrdered By: Jaiden Nance on 08-21-2024 Anion gap [Moles/Vol] Serum or plasma an ion gap determination 6.0-15.0 [facility] Sodium [Moles/volume] in Ser um or PlasmaOrdered By: Jaiden Nance on 08-21-2024 Sodium [Moles/Vol] Sodium [Moles/volume ] in Serum or Plasma 136-145 [facility] Urea nitrogen [Mass/volume] in Serum or PlasmaOrdered By: Jaiden Nance on 08-21-2024 Urea nitrogen [Mass/Vol] Urea nitrogen [Mass/volume] in Serum or Plasma 7-25 [facility] WBC Auto (Bld) [#/Vol]Ordere d By: Jaidne Nance on 08-21-2024 WBC (Bld) [#/Vol] Leukocytes [#/volume ] in Blood by Automated count 4.1-10.5 [facility] Alanine aminotransferase [En zymatic activity/volume] in Serum or PlasmaOrdered By: Louie Marrero on 08-20-2024 ALT [Catalytic activity/Vol] Alanine aminotransferase [Enzymatic activity/volume] in Serum or Plasma 7-52 [facility] Albumin [Mass/volume] in Ser um or Plasma by Bromocresol green (BCG) dye binding methoOrdered By: Louie Marrero on 08-20-2024 Albumin BCG dye [Mass/Vol] Albumin [Mass/volume] in Serum or Plasma by Bromocresol green (BCG) dye binding metho Low 3.5-5.7 [facility] Alkaline phosphatase [Enzyma tic activity/volume] in Serum or PlasmaOrdered By: Louei Marrero on 08-20-2024 ALP [Catalytic activity/Vol] Alkaline phosphatase [Enzymatic activity/volume] in Serum or Plasma 34-104 [facility] Appearance of UrineOrdered B y: Louie Marrero on 08-20-2024 Appearance (U) Urine appearance Clear [facility] Aspartate aminotransferase [ Enzymatic activity/volume] in Serum or PlasmaOrdered By: Louie Marrero on 08-20-2024 AST [Catalytic activity/Vol] Aspartate aminotransferase [Enzymatic activity/volume] in Serum or Plasma 13-39 [facility] Basophils Auto (Bld) [#/Vol] Ordered By: Louie Marrero on 08-20-2024 Basophils (Bld) [#/Vol] Automated basophil count 0.0-0.2 [facility] Basophils/100 WBC Auto (Bld) Ordered By: Louie Marrero on 08-20-2024 Basophils/100 WBC (Bld) Automated basophil % . [facility] Bilirubin Test strip Ql (U)O rdered By: Louie Marrero on 08-20-2024 Bilirubin Ql (U) Bilirubin.total [Presence] in Urine by Test strip Negative [facility] Bilirubin.total [Mass/volume ] in Serum or PlasmaOrdered By: Louie Marrero on 08-20-2024 Bilirubin [Mass/Vol] Bilirubin.total [Mass/volume] in Serum or Plasma 0.3-1.0 [facility] BioFire Not Detectedon 08-20 BioFire Not Detected Not detected Normal Not Detecte [facility] Comment on above: Result Comment: This is a duplicate RP2.1 COVID (PCR) result to be used for statistical tracking purpose only. PERFORMED BY: [place] [address] PATHOLOGIST PROOF CARRIER HEBER SHANNON M.D. Performed By: #### M G, SCAN CBC, CMP #### [facility] [address] [place] [address] Blood Cultureon 08-20-2024 Bacteria identified Cx Nom (Bld) MISSED X1 PT REFUSED TO LET ME TRY AGAIN BORIS PISANO KNOWS NO GROWTH 5 DAYS PERFORMED BY: [place] [address] PATHOLOGIST PROOF CARRIER HEBER SHANNON M.D. Normal [facility] Comment on above: Performed By: #### E SR #### [facility] [address] [place] [address] Bacteria identified Cx Nom (Bld) right chest NO GROWTH 5 DAYS PERFORMED BY: [place] [address] PATHOLOGIST PROOF CARRIER HEBER SHANNON M.D. Normal [facility] Comment on above: Performed By: #### E SR #### [facility] [address] C reactive protein [Mass/vol ume] in Serum or PlasmaOrdered By: Louie Marrero on 08-20-2024 CRP [Mass/Vol] C reactive protein [Mass/volume] in Serum or Plasma High 0.0-0.5 [facility] C-Reactive Proteinon 025 C-Reactive Protein 3.3 mg/dL High 0.0-0.5 [facility] Comment on above: Result Comment: PERF ORMED BY: [place] [address] PATHOLOGIST PROOF CARRIER HEBER SHANNON M.D. Performed By: #### E SR #### [facility] [address] COVID-19 Detected/Not Detect edOrdered By: Louie Marrero on 08-20-2024 SARS-CoV-2 (COVID-19) RNA MICHELLE+non-probe Ql (Nph) Not detected Not Detecte [facility] Comment on above: This is a duplicate RP2.1 COVID (PCR) result to be used for statistical tracking purpose only. Calcium [Mass/volume] in Ser um or PlasmaOrdered By: Louie Marrero on 08-20-2024 Calcium [Mass/Vol] Calcium [Mass/volume ] in Serum or Plasma Low 8.6-10.3 [facility] Carbon dioxide, total [Moles /volume] in Serum or PlasmaOrdered By: Louie Marrero on 08-20-2024 CO2 [Moles/Vol] Carbon dioxide, tota l [Moles/volume] in Serum or Plasma 21.0-31.0 [facility] Chloride [Moles/volume] in S stephanie or PlasmaOrdered By: Louie Marrero on 08-20-2024 Chloride [Moles/Vol] Chloride [Moles/vol ume] in Serum or Plasma 98-107 [facility] Color Auto (U)Ordered By: Abe Marrero on 08-20-2024 Color (U) Color of Urine by Auto Yellow [facility] Complete Blood Count Auto Di ffon 08-20-2024 Basophils (Bld) [#/Vol] 0.0 10*3/uL Normal 0.0-0.2 [facility] Comment on above: Result Comment: PERF ORMED BY: [place] [address] PATHOLOGIST PROOF CARRIER HEBER SHANNON M.D. Performed By: #### U A #### [address] Basophils/100 WBC (Bld) 0.5 % Normal . [facility] Comment on above: Performed By: #### U A #### [address] Eosinophils (Bld) [#/Vol] 0.1 10*3/uL Normal 0.0-0.45 [facility] Comment on above: Performed By: #### U A #### [address] Eosinophils/100 WBC (Bld) 0.7 % Normal . [facility] Comment on above: Performed By: #### U A #### [address] Erythrocyte distribution width (RBC) [Ratio] 14.8 % Normal 12.0-14.8 [facility] Comment on above: Performed By: #### U A #### [address] Hematocrit (Bld) [Volume fraction] 34.2 % Low 38.8-50.0 [facility] Comment on above: Performed By: #### U A #### [address] Hemoglobin (Bld) [Mass/Vol] 11.4 g/dL Low 13.0-17.0 [facility] Comment on above: Performed By: #### U A #### [address] Lymphocytes (Bld) [#/Vol] 0.8 10*3/uL Low 1.00-4.8 [facility] Comment on above: Performed By: #### U A #### [address] Lymphocytes/100 WBC (Bld) 10.5 % Normal . [facility] Comment on above: Performed By: #### U A #### [address] MCH (RBC) [Entitic mass] 31.0 pg Normal 27.5-35.2 [facility] Comment on above: Performed By: #### U A #### [address] MCV (RBC) [Entitic vol] 92.9 fL Normal 83.5-101 [facility] Comment on above: Performed By: #### U A #### [address] Mean Corpuscular HGB Conc 33.4 g/dL Normal 32.5-35.6 [facility] Comment on above: Performed By: #### U A #### [address] Monocytes (Bld) [#/Vol] 0.8 10*3/uL Normal 0.0-0.8 [facility] Comment on above: Performed By: #### U A #### [address] Monocytes/100 WBC (Bld) 23.19 % High 0.00-20.00 [facility] Comment on above: Result Comment: For adults in ED, MDW > 20.0 may be associated with a higher risk of sepsis during the first 12 hrs of hospital admission Performed By: #### U A #### [address] Monocytes/100 WBC (Bld) 11.3 % Normal . [facility] Comment on above: Performed By: #### U A #### [place] [address] [place] Neutrophils (Bld) [#/Vol] 5.7 10*3/uL Normal 1.8-7.7 [facility] Comment on above: Performed By: #### U A #### [facility] [address] Neutrophils/100 WBC (Bld) 77.0 % Normal . [facility] Comment on above: Performed By: #### U A #### [facility] [address] NRBC% 0.2 /100{WBC} Normal 0-0.5 The [facility] Comment on above: Performed By: #### U A #### [facility] [address] Platelet mean volume (Bld) [Entitic vol] 8.1 fL Normal 6.6-10.[address] [facility] Comment on above: Performed By: #### U A #### [facility] [address] Platelets (Bld) [#/Vol] 234 10*3/uL Normal 150-450 [facility] Comment on above: Performed By: #### U A #### [address] RBC (Bld) [#/Vol] 3.68 10*6/uL Low 3.90-5.60 The [facility] Comment on above: Performed By: #### U A #### [address] WBC (Bld) [#/Vol] 7.4 10*3/uL Normal 4.1-10.5 The [facility] Comment on above: Performed By: #### U A #### [address] Comprehensive Metabolic Pane obdulio 08-20-2024 Albumin [Mass/Vol] 3.4 g/dL Low 3.5-5.7 The [facility] Comment on above: Performed By: #### E SR #### [address] Albumin/Globulin [Mass ratio] 1.4 {ratio} Normal [facility] Comment on above: Performed By: #### E SR #### [facility] [address] [place] [address] [place] ALP [Catalytic activity/Vol] 66 U/L Normal 34-104 [facility] Comment on above: Performed By: #### E SR #### [place] [address] [place] ALT [Catalytic activity/Vol] 17 U/L Normal 7-52 [facility] Comment on above: Performed By: #### E SR #### [place] [address] [place] Anion gap [Moles/Vol] 10.3 mmol/L Normal 6.0-15.0 [facility] Comment on above: Performed By: #### E SR #### [address] AST [Catalytic activity/Vol] 18 U/L Normal 13-39 [facility] Comment on above: Performed By: #### E SR #### [place] [address] [place] Bilirubin [Mass/Vol] 0.6 mg/dL Normal 0.3-1.0 [facility] Comment on above: Performed By: #### E SR #### [address] Calcium [Mass/Vol] 8.4 mg/dL Low 8.6-10.3 The [facility] Comment on above: Performed By: #### E SR #### [place] [address] [place] Chloride [Moles/Vol] 104 mmol/L Normal 98-107 [facility] Comment on above: Performed By: #### E SR #### [place] [address] [place] CO2 [Moles/Vol] 25.4 mmol/L Normal 21.0-31.0 The [facility] Comment on above: Performed By: #### E SR #### [place] [id number] [place] Creatinine [Mass/Vol] 0.85 mg/dL Normal 0.70-1.30 [facility] Comment on above: Performed By: #### E SR #### [address] Creatinine Clr Calc Pharmacy 58.71 Normal [facility] Comment on above: Result Comment: PERF ORMED BY: [place] [address] PATHOLOGIST PROOF CARRIER HEBER SHANNON M.D. Performed By: #### E SR #### [address] GFR/1.73 sq M.predicted MDRD (S/P/Bld) [Vol rate/Area] mL/min/{1.73_m2} Normal [facility] Comment on above: Performed By: #### E SR #### [address] Globulin (S) [Mass/Vol] 2.5 g/dL Normal [facility] Comment on above: Performed By: #### E SR #### [address] Glucose [Mass/Vol] 106 mg/dL High 70-100 The [facility] Comment on above: Result Comment: [place] Glucose Reference Range is dependent on time and content of last meal. Glucose of more than 200 mg/dL in a nonstressed, ambulatory subject supports the diagnosis of Diabetes Mellitus. ADA recommended reference range Performed By: #### E SR #### [address] Potassium [Moles/Vol] 3.7 mmol/L Normal 3.5-5.1 [facility] Comment on above: Performed By: #### E SR #### [address] Protein [Mass/Vol] 5.9 g/dL Low 6.4-8.9 The [facility] Comment on above: Performed By: #### E SR #### [address] [place] [address] [place] Sodium [Moles/Vol] 136 mmol/L Normal 136-145 The [facility] Comment on above: Performed By: #### E SR #### [facility] [address] [place] [address] Urea nitrogen [Mass/Vol] 16 mg/dL Normal 7-25 [facility] Comment on above: Performed By: #### E SR #### [facility] [address] [place] [address] Creatinine [Mass/volume] in Serum or PlasmaOrdered By: Louie Marrero on 08-20-2024 Creatinine [Mass/Vol] Creatinine [Mass/v olume] in Serum or Plasma 0.70-1.30 [facility] ECG 12 lead ECGon 08-20-2024 ECG 12 lead ECG [facility] [place] [address] [place] [address] Electrocardiograph Report Signed Patient: Jeremie Bennett MR#: [id number] : 1940 Acct:[id number] Age/Sex: 83 / M ADM Date: 08/20/24 Loc: ER Room: Type: [facility] ER Attending Dr: Ordering Provider: Louie Marrero [...] ECGs available Confirmed by LOUIE MARRERO DO ([id number]) on 08/20/2024 7:55:25 PM Referred By: Electronically Signed By: LOUIE MARRERO DO Transcribed By: MUS Signed By Louie Marrero DO 08/20 Normal [facility] Eosinophils Auto (Bld) [#/Vo l]Ordered By: Louie Marrero on 08-20-2024 Eosinophils (Bld) [#/Vol] Automated eosinophil count 0.0-0.45 [facility] Eosinophils/100 WBC Auto (Bl d)Ordered By: Louie Marrero on 08-20-2024 Eosinophils/100 WBC (Bld) Automated eosinophil % . [facility] Erythrocyte Sedimentation Ra ciro 08-20-2024 ESR (Bld) [Velocity] 42 mm/h High 0-19 [facility] Comment on above: Result Comment: PERF ORMED BY: [facility] [address] [place] [id number] PATHOLOGIST PROOF CARRIER HEBER SHANNON M.D. Performed By: #### E #### [address] Erythrocyte distribution wid th Auto (RBC) [Ratio]Ordered By: Louie Marrero on 08-20-2024 Erythrocyte distribution width (RBC) [Ratio] Erythrocyte distribution width [Ratio] by Automated count 12.0-14.8 [facility] Erythrocyte sedimentation ra te by Photometric methodOrdered By: Jaiden Nance on 08-20-2024 ESR Photometric method (Bld) [Velocity] Erythrocyte sedimentation rate by Photometric method High 0-19 [facility] Globulin Calc (S) [Mass/Vol] Ordered By: Louie Marrero on 08-20-2024 Globulin (S) [Mass/Vol] Serum globulin measurement by calculation (mass/volume) [facility] Glucose [Mass/volume] in Ser um or PlasmaOrdered By: Louie Marrero on 08-20-2024 Glucose [Mass/Vol] Glucose [Mass/volume ] in Serum or Plasma High 70-100 [facility] Comment on above: ADA recommended refe rence rangeRandom Glucose Reference Range is dependent on time and content of last meal. Glucose of more than 200 mg/dL in a nonstressed, ambulatory subject supports the diagnosis of Diabetes Mellitus. Glucose [Mass/volume] in Uri ne by Test stripOrdered By: Louie Marrero on 08-20-2024 Glucose Test strip (U) [Mass/Vol] Glucose [Mass/volume] in Urine by Test strip Normal [facility] Hematocrit Auto (Bld) [Volum e fraction]Ordered By: Louie Marrero on 08-20-2024 Hematocrit (Bld) [Volume fraction] Hematocrit [Volume Fraction] of Blood by Automated count Low 38.8-50.0 [facility] Hemoglobin Test strip Ql (U) Ordered By: Louie Marrero on 08-20-2024 Hemoglobin Ql (U) Hemoglobin [Presence ] in Urine by Test strip Negative [facility] Hemoglobin [Mass/volume] in BloodOrdered By: Louie Marrero on 08-20-2024 Hemoglobin (Bld) [Mass/Vol] Hemoglobin [Mass/volume] in Blood Low 13.0-17.0 [facility] INR in Platelet poor plasma by Coagulation assayOrdered By: Louie Marrero on 08-20-2024 INR Coag (PPP) [Relative time] INR in Platelet poor plasma by Coagulation assay [facility] Comment on above: INR Therapeutic Rang e [...] n Urine by Test strip High Negative [facility] Laboratory - Microbiology an d Antimicrobial susceptibilityOrdered By: Louie Marrero on 08-20-2024 Bacteria identified Cx Nom (Bld) NO GROWTH 5 DAYS [facility] Bacteria identified Cx Nom (Bld) NO GROWTH 5 DAYS [facility] Lactate [Moles/volume] in Se rum or PlasmaOrdered By: Louie Marrero on 08-20-2024 Lactate [Moles/Vol] Lactate [Moles/volum e] in Serum or Plasma 0.5-1.9 [facility] Comment on above: Lactic Acid referenc e range has been updated to 0.5 1.9 mmol/L and the critical range of 2.0 or greater. Lactic Acidon 08-20-2024 Lactate [Moles/Vol] 0.8 mmol/L Normal 0.5-1.9 The [facility] Comment on above: Result Comment: Lact ic Acid reference range has been updated to 0.5 ? 1.9 mmol/L and the critical range of 2.0 or greater. PERFORMED BY: [place] [address] PATHOLOGIST PROOF CARRIER HEBER SHANNON M.D. Performed By: #### U A #### [address] Leukocyte esterase [Presence ] in Urine by Test stripOrdered By: Louie Marrero on 08-20-2024 Leukocyte esterase Test strip Ql (U) Leukocyte esterase [Presence] in Urine by Test strip Negative [facility] Leukocytes [#/volume] correc suzy for nucleated erythrocytes in Blood by Automated counOrdered By: Louie Marrero on 08-20-2024 WBC corrected for nucl RBC Auto (Bld) [#/Vol] Leukocytes [#/volume] corrected for nucleated erythrocytes in Blood by Automated coun 4.1-10.5 [facility] Lymphocytes Auto (Bld) [#/Vo l]Ordered By: Louie Marrero on 08-20-2024 Lymphocytes (Bld) [#/Vol] Lymphocytes [#/volume] in Blood by Automated count Low 1.00-4.8 [facility] Lymphocytes/100 WBC Auto (Bl d)Ordered By: Louie Marrero on 08-20-2024 Lymphocytes/100 WBC (Bld) Lymphocytes/100 leukocytes in Blood by Automated count . [facility] MCH Auto (RBC) [Entitic mass ]Ordered By: Louie Marrero on 08-20-2024 MCH (RBC) [Entitic mass] MCH [Entitic mass] by Automated count 27.5-35.2 [facility] MCHC Auto (RBC) [Mass/Vol]Or dered By: Louie Marrero on 08-20-2024 MCHC (RBC) [Mass/Vol] MCHC [Mass/volume] by Automated count 32.5-35.6 [facility] MCV Auto (RBC) [Entitic vol] Ordered By: Louie Marrero on 08-20-2024 MCV (RBC) [Entitic vol] MCV [Entitic volume] by Automated count 83.5-101 [facility] Monocyte distribution width [Entitic volume] in Blood by AutomatedOrdered By: Louie Marrero on 08-20-2024 Monocyte distribution width Auto (Bld) [Entitic vol] Monocyte distribution width [Entitic volume] in Blood by Automated High 0.00-20.00 [facility] Comment on above: For adults in ED, MD W > 20.0 may be associated with a higher risk of sepsis during the first 12 hrs of hospital admission Monocytes Auto (Bld) [#/Vol] Ordered By: Louie Marrero on 08-20-2024 Monocytes (Bld) [#/Vol] Automated blood monocyte count 0.0-0.8 [facility] Monocytes/100 WBC Auto (Bld) Ordered By: Louie Marrero on 08-20-2024 Monocytes/100 WBC (Bld) Automated monocyte % . [facility] Neutrophils Auto (Bld) [#/Vo l]Ordered By: Louie Marrero on 08-20-2024 Neutrophils (Bld) [#/Vol] Neutrophils [#/volume] in Blood by Automated count 1.8-7.7 [facility] Neutrophils/100 WBC Auto (Bl d)Ordered By: Louie Marrero on 08-20-2024 Neutrophils/100 WBC (Bld) Automated neutrophil % . [facility] Nitrite Test strip Ql (U)Ord ered By: Louie Marrero on 08-20-2024 Nitrite Ql (U) Nitrite [Presence] i n Urine by Test strip Negative [facility] No Panel InformationOrdered By: Louie Marrero on 08-20-2024 Estimated GFR (CKD-EPI) > 60.0 mL/Min [facility] Creatinine Clearance (Chem 58.71 [facility] Nucleated erythrocytes [Pres ence] in Blood by Automated countOrdered By: Louie Marrero on 08-20-2024 Nucleated RBC Auto Ql (Bld) Nucleated erythrocytes [Presence] in Blood by Automated count 0-0.5 [facility] Platelet mean volume Auto (B ld) [Entitic vol]Ordered By: Louie Marrero on 08-20-2024 Platelet mean volume (Bld) [Entitic vol] Platelet mean volume [Entitic volume] in Blood by Automated count 6.6-10.1 [facility] Platelets Auto (Bld) [#/Vol] Ordered By: Louie Marrero on 08-20-2024 Platelets (Bld) [#/Vol] Platelets [#/volume] in Blood by Automated count 150-450 [facility] Potassium [Moles/volume] in Serum or PlasmaOrdered By: Louie Marrero on 08-20-2024 Potassium [Moles/Vol] Potassium [Moles/v olume] in Serum or Plasma 3.5-5.1 [facility] Protein Test strip (U) [Mass /Vol]Ordered By: Louie Marrero on 08-20-2024 Protein (U) [Mass/Vol] Protein [Mass/vol ume] in Urine by Test strip Negative [facility] Protein [Mass/volume] in Ser um or PlasmaOrdered By: Louie Marrero on 08-20-2024 Protein [Mass/Vol] Protein [Mass/volume ] in Serum or Plasma Low 6.4-8.9 [facility] Prothrombin Time INRon 08-20 INR Coag (PPP) [Relative time] 1.1 {INR} Normal [facility] Comment on above: Result [...] heart valves: 3 - 4.5 PERFORMED BY: [place] [id number] PATHOLOGIST PROOF CARRIER HEBER SHANNON M.D. Performed By: #### E SR #### [facility] [address] [place] [address] [facility] PT Coag (PPP) [Time] 12.9 s Normal 9.0-12.9 [facility] Comment on above: Result Comment: A he matocrit value greater than 55% may lead to inaccurate results in coagulation testing. Patients having hematocrit values >55% require a special collection tube for coagulation studies. Please contact the laboratory at [phone] for redraw instructions. Performed By: #### E SR #### [facility] [address] [place] [address] [facility] Prothrombin time (PT)Ordered By: Louie Marrero on 08-20-2024 PT Coag (PPP) [Time] Prothrombin time (PT) 9.0- 12.9 [facility] Comment on above: A hematocrit value g reater than 55% may lead to inaccurate results in coagulation testing. Patients having hematocrit values >55% require a special collection tube for coagulation studies. Please contact the laboratory at [phone] for redraw instructions. RBC Auto (Bld) [#/Vol]Ordere d By: Louie Marrero on 08-20-2024 RBC (Bld) [#/Vol] Erythrocytes [#/volu me] in Blood by Automated count Low 3.90-5.60 [facility] Respiratory (Upper) Panel, P CRon 08-20-2024 Respiratory [...] A H3 Blank Space ---- PERFORMED BY: [facility] [place] [address] PATHOLOGIST PROOF CARRIER HEBER SHANNON M.D. Normal [facility] Comment on above: Performed By: #### M G, SCAN CBC, CMP #### [facility] [address] Respiratory pathogens DNA an d RNA panel - Nasopharynx by MICHELLE with non-probe detectionOrdered By: Louie Marrero on 08-20-2024 Respiratory pathogens DNA and RNA panel MICHELLE+non-probe (Nph) Respiratory pathogens DNA and RNA panel - Nasopharynx by MICHELLE with non-probe detection [facility] Serum or plasma albumin/glob ulin mass ratioOrdered By: Louie Marrero on 08-20-2024 Albumin/Globulin [Mass ratio] Serum or plasma albumin/globulin mass ratio [facility] Serum or plasma anion gap de terminationOrdered By: Louie Marrero on 08-20-2024 Anion gap [Moles/Vol] Serum or plasma an ion gap determination 6.0-15.0 [facility] Sodium [Moles/volume] in Ser um or PlasmaOrdered By: Louie Marrero on 08-20-2024 Sodium [Moles/Vol] Sodium [Moles/volume ] in Serum or Plasma 136-145 [facility] Specific gravity Test strip (U) [Rel density]Ordered By: Louie Marrero on 08-20-2024 Specific gravity (U) [Rel density] Specific gravity of Urine by Test strip 1.001-1.03 0 [facility] Troponin I High Sensitivityo n 08-20-2024 Troponin I High Sensitivity 12 Normal 0-20 [facility] Comment on above: Result Comment: The Troponin units of report have been changed to meet the Chest Pain Accreditation requirement, element EC5.M1l2. Troponin units are changed from pg/ml to ng/L. Also, the decimal is removed and results are in whole numbers. PERFORMED BY: [place] [address] PATHOLOGIST PROOF CARRIER HEBER SHANNON M.D. Performed By: #### M G, SCAN CBC, CMP #### [facility] [address] [place], [place] [id number] [facility] Troponin I.cardiac [Mass/vol ume] in Serum or Plasma by Detection limit <= 0.01 ng/Ordered By: Louie Marrero on 08-20-2024 Troponin I.cardiac DL <= 0.01 ng/mL [Mass/Vol] Troponin I.cardiac [Mass/volume] in Serum or Plasma by Detection limit <= 0.01 ng/ 0-20 [facility] Comment on above: The Troponin units o f report have been changed to meet the Chest Pain Accreditation requirement, element EC5.M1l2. Troponin units are changed from pg/ml to ng/L. Also, the decimal is removed and results are in whole numbers. Urea nitrogen [Mass/volume] in Serum or PlasmaOrdered By: Louie Marrero on 08-20-2024 Urea nitrogen [Mass/Vol] Urea nitrogen [Mass/volume] in Serum or Plasma 12-08 [facility] Urinalysison 08-20-2024 Appearance (U) Clear Normal Clear [facility] Comment on above: Order Comment: Name Collection Type:: Straight Catheter Performed By: #### M G, SCAN CBC, CMP #### [facility] [address] [place] [address] [place] Bilirubin,Urine Negative Normal Negative [facility] Comment on above: Order Comment: Name Collection Type:: Straight Catheter Performed By: #### M G, SCAN CBC, CMP #### [facility] [address] [place] [address] [place] Color (U) Light-Yellow Normal Yellow The [facility] Comment on above: Order Comment: Name Collection Type:: Straight Catheter Performed By: #### M G, SCAN CBC, CMP #### [facility] [address] [place] [id number] [place] Glucose Ql (U) Normal Normal Normal [facility] Comment on above: Order Comment: Name Collection Type:: Straight Catheter Performed By: #### M G, SCAN CBC, CMP #### [facility] [address] [place] [id number] [place] Ketones Ql (U) 1+ High Negative [facility] Comment on above: Order Comment: Name Collection Type:: Straight Catheter Performed By: #### M G, SCAN CBC, CMP #### [address] Leukocyte esterase Test strip Ql (U) Negative Normal Negative [facility] Comment on above: Order Comment: Name Collection Type:: Straight Catheter Performed By: #### M G, SCAN CBC, CMP #### [place] [address] [place] Nitrite,Urine Negative Normal Negative [facility] Comment on above: Order Comment: Name Collection Type:: Straight Catheter Performed By: #### M G, SCAN CBC, CMP #### [address] Occult Blood,Urine Negative Normal Negative [facility] Comment on above: Order Comment: Name Collection Type:: Straight Catheter Result Comment: PERF ORMED BY: [place] [address] PATHOLOGIST PROOF CARRIER HEBER SHANNON M.D. Performed By: #### M G, SCAN CBC, CMP #### [address] pH (U) 5.5 [pH] Normal 5.0-9.0 [facility] Comment on above: Order Comment: Name Collection Type:: Straight Catheter Performed By: #### M G, SCAN CBC, CMP #### [address] Protein,Urine Negative Normal Negative [facility] Comment on above: Order Comment: Name Collection Type:: Straight Catheter Performed By: #### M G, SCAN CBC, CMP #### [place] [address] [place] Specificy [place],Urine 1.017 Normal 1.001-1.03 0 [facility] Comment on above: Order Comment: Name Collection Type:: Straight Catheter Performed By: #### M G, SCAN CBC, CMP #### [place] [address] [place] Urobilinogen,Urine Normal Normal Normal [facility] Comment on above: Order Comment: Name Collection Type:: Straight Catheter Performed By: #### M G, SCAN CBC, CMP #### [facility] [address] [id number] [place] Urobilinogen Test strip (U) [Mass/Vol]Ordered By: Louie Marrero on 08-20-2024 Urobilinogen (U) [Mass/Vol] Urobilinogen [Mass/volume] in Urine by Test strip Normal [facility] WBC Auto (Bld) [#/Vol]Ordere d By: Louie Marrero on 08-20-2024 WBC (Bld) [#/Vol] Leukocytes [#/volume ] in Blood by Automated count 4.1-10.5 [facility] X-ray reportOrdered By: Brooks Benavides on 08-20-2024 Study report [facility] [place] [address] [place] [address] XRay Report Signed Patient: Jeremie Bennett MR#: [id number] : 1940 Acct:[id number] Age/Sex: 83 / M ADM Date: 5 Loc: ER Room: Type: [facility] ER Attending Dr: Copies to: Louie Marrero DO~ Ordering Provider: Louie Marrero DO Date of Service: 08/20/24 XR/XR chest 1V portable: Fever SINGLE VIEW CHEST CLINICAL HISTORY: Fever, recently finished chemotherapy, cough for 3 weeks COMPARISON: 07/17/2024 FINDINGS: Left-sided pacemaker device. Right-sided Bensye-o-Gijz. Posterior changes fromprior ACDF. Mildly enlarged cardiac silhouette. Minimal hazy bibasilar opacities similar prior exam. No effusion or pneumothorax. XR/XR chest 1V portable IMPRESSION: MILD BIBASILAR AIRSPACE OPACITIES, THESE APPEAR SIMILAR PRIOR EXAM. Impression dictated by: Rah Benavides M.D.08/20/2024 6:32 PM Dictation Location: [facility]- Transcribed By: PERLA 08/20/241831 Dictated By: Rah Benavides MD 08/20/241830 Signed By: 08/20/241831 [facility] Work Phone: XR chest 1V portableon 08-20 XR chest 1V portable [facility] [place] [address] [place] [address] XRay Report Signed Patient: Jeremie Bennett MR#: [id number] : 1940 Acct:[id number] Age/Sex: 83 / M ADM Date: 08/20/24 Loc: ER Room: Type: [facility] ER Attending Dr: Copies to: Louie Marrero DO Ordering Provider: Louie Marrero DO Date of Service: 08/20/24 XR/XR chest 1V portable: Fever SINGLE VIEW CHEST CLINICAL HISTORY: Fever, recently finished chemotherapy, cough for 3 weeks COMPARISON: 07/17/2024 FINDINGS: Left-sided pacemaker device. Right-sided Sqcsbv-k-Wise. Posterior changes from prior ACDF. Mildly enlarged cardiac silhouette. Minimal hazy bibasilar opacities similar prior exam. No effusion or pneumothorax. XR/XR chest 1V portable IMPRESSION: MILD BIBASILAR AIRSPACE OPACITIES, THESE APPEAR SIMILAR PRIOR EXAM. Impression dictated by: Rah Benavides M.D.08/20/2024 6:32 PM Dictation Location: [place] [address] Transcribed By: PERLA 08/20/241831 Dictated By: Rah Benavides MD 08/20/241830 Signed By: 08/20/241831 Normal [facility] pH Test strip (U)Ordered By: Louie Marrero on 08-20-2024 pH (U) pH of Urine by Test strip 5.0-9.0 [facility] Alanine aminotransferase [En zymatic activity/volume] in Serum or PlasmaOrdered By: Talib Fautsin on 08-16-2024 ALT [Catalytic activity/Vol] Alanine aminotransferase [Enzymatic activity/volume] in Serum or Plasma [facility] Albumin [Mass/volume] in Ser um or Plasma by Bromocresol green (BCG) dye binding methoOrdered By: Talib Faustin on 08-16-2024 Albumin BCG dye [Mass/Vol] Albumin [Mass/volume] in Serum or Plasma by Bromocresol green (BCG) dye binding metho 3.5-5.7 [facility] Alkaline phosphatase [Enzyma tic activity/volume] in Serum or PlasmaOrdered By: Talib Faustin on 08-16-2024 ALP [Catalytic activity/Vol] Alkaline phosphatase [Enzymatic activity/volume] in Serum or Plasma 34-104 [facility] Aspartate aminotransferase [ Enzymatic activity/volume] in Serum or PlasmaOrdered By: Talib Faustin on 08-16-2024 AST [Catalytic activity/Vol] Aspartate aminotransferase [Enzymatic activity/volume] in Serum or Plasma 13-39 [facility] Basophils Auto (Bld) [#/Vol] Ordered By: Talib Faustin on 08-16-2024 Basophils (Bld) [#/Vol] Automated basophil count 0.0-0.2 [facility] Basophils/100 WBC Auto (Bld) Ordered By: Talib Faustin on 08-16-2024 Basophils/100 WBC (Bld) Automated basophil % . [facility] Bilirubin.total [Mass/volume ] in Serum or PlasmaOrdered By: Talib Faustin on 08-16-2024 Bilirubin [Mass/Vol] Bilirubin.total [Mass/volume] in Serum or Plasma 0.3-1.0 [facility] Calcium [Mass/volume] in Ser um or PlasmaOrdered By: Talib Faustin on 08-16-2024 Calcium [Mass/Vol] Calcium [Mass/volume ] in Serum or Plasma 8.6-10.3 [facility] Carbon dioxide, total [Moles /volume] in Serum or PlasmaOrdered By: Talib Hargrove on 08-16-2024 CO2 [Moles/Vol] Carbon dioxide, tota l [Moles/volume] in Serum or Plasma 21.0-31.0 [facility] Chloride [Moles/volume] in S stephanie or PlasmaOrdered By: Talib Faustin on 08-16-2024 Chloride [Moles/Vol] Chloride [Moles/vol ume] in Serum or Plasma 98-107 [facility] Complete Blood Count Auto Di ffon 08-16-2024 Basophils (Bld) [#/Vol] 0.1 10*3/uL Normal 0.0-0.2 [facility] Comment on above: Result Comment: PERF ORMED BY: [place] [address] PATHOLOGIST PROOF CARRIER HEBER SHANNON M.D. Performed By: #### E SR #### [address] Basophils/100 WBC (Bld) 1.1 % Normal . [facility] Comment on above: Performed By: #### E SR #### [address] Eosinophils (Bld) [#/Vol] 0.1 10*3/uL Normal 0.0-0.45 [facility] Comment on above: Performed By: #### E SR #### [address] Eosinophils/100 WBC (Bld) 0.7 % Normal . [facility] Comment on above: Performed By: #### E SR #### [address] Erythrocyte distribution width (RBC) [Ratio] 15.2 % High 12.0-14.8 [facility] Comment on above: Performed By: #### E SR #### [address] Hematocrit (Bld) [Volume fraction] 34.8 % Low 38.8-50.0 [facility] Comment on above: Performed By: #### E SR #### [address] Hemoglobin (Bld) [Mass/Vol] 11.7 g/dL Low 13.0-17.0 [facility] Comment on above: Performed By: #### E SR #### [address] Lymphocytes (Bld) [#/Vol] 0.6 10*3/uL Low 1.00-4.8 [facility] Comment on above: Performed By: #### E SR #### [address] Lymphocytes/100 WBC (Bld) 6.4 % Normal . [facility] Comment on above: Performed By: #### E SR #### [address] MCH (RBC) [Entitic mass] 30.8 pg Normal 27.5-35.2 [facility] Comment on above: Performed By: #### E SR #### [address] MCV (RBC) [Entitic vol] 91.9 fL Normal 83.5-101 [facility] Comment on above: Performed By: #### E SR #### [address] Mean Corpuscular HGB Conc 33.5 g/dL Normal 32.5-35.6 [facility] Comment on above: Performed By: #### E SR #### [address] Monocytes (Bld) [#/Vol] 1.1 10*3/uL High 0.0-0.8 [facility] Comment on above: Performed By: #### E SR #### [address] Monocytes/100 WBC (Bld) 12.6 % Normal . [facility] Comment on above: Performed By: #### E SR #### [address] Neutrophils (Bld) [#/Vol] 7.2 10*3/uL Normal 1.8-7.7 [facility] Comment on above: Performed By: #### E SR #### [address] Neutrophils/100 WBC (Bld) 79.2 % Normal . [facility] Comment on above: Performed By: #### E SR #### [address] NRBC% 0.1 /100{WBC} Normal 0-0.5 [facility] Comment on above: Performed By: #### E SR #### [facility] [address] [id number] [facility] Platelet mean volume (Bld) [Entitic vol] 7.5 fL Normal 6.6-10.1 [facility] Comment on above: Performed By: #### E SR #### [facility] [address] [id number] [facility] Platelets (Bld) [#/Vol] 236 10*3/uL Normal 150-450 [facility] Comment on above: Performed By: #### E SR #### [address] RBC (Bld) [#/Vol] 3.79 10*6/uL Low 3.90-5.60 [facility] Comment on above: Performed By: #### E SR #### [address] WBC (Bld) [#/Vol] 9.1 10*3/uL Normal 4.1-10.5 [facility] Comment on above: Performed By: #### E SR #### [address] Comprehensive Metabolic Pane obdulio 08-16-2024 Albumin [Mass/Vol] 3.6 g/dL Normal 3.5-5.7 [facility] Comment on above: Performed By: #### E SR #### [address] Albumin/Globulin [Mass ratio] 1.4 {ratio} Normal [facility] Comment on above: Performed By: #### E SR #### [place] [id number] [place] ALP [Catalytic activity/Vol] 73 U/L Normal 34-104 [facility] Comment on above: Performed By: #### E SR #### [address] ALT [Catalytic activity/Vol] 14 U/L Normal 7-52 [facility] Comment on above: Performed By: #### E SR #### [address] Anion gap [Moles/Vol] 10.5 mmol/L Normal 6.0-15.0 [facility] Comment on above: Performed By: #### E SR #### [address] AST [Catalytic activity/Vol] 13 U/L Normal 13-39 [facility] Comment on above: Performed By: #### E SR #### [address] Bilirubin [Mass/Vol] 0.4 mg/dL Normal 0.3-1.0 [facility] Comment on above: Performed By: #### E SR #### [address] Calcium [Mass/Vol] 8.6 mg/dL Normal 8.6-10.3 [facility] Comment on above: Performed By: #### E SR #### [address] Chloride [Moles/Vol] 107 mmol/L Normal 98-107 [facility] Comment on above: Performed By: #### E SR #### [address] CO2 [Moles/Vol] 24.4 mmol/L Normal 21.0-31.0 [facility] Comment on above: Performed By: #### E SR #### [address] Creatinine [Mass/Vol] 0.83 mg/dL Normal 0.70-1.30 [facility] Comment on above: Performed By: #### E SR #### [address] Creatinine Clr Calc Pharmacy 59.79 Normal [facility] Comment on above: Result Comment: PERF ORMED BY: [place] [address] PATHOLOGIST PROOF CARRIER HEBER SHANNON M.D. Performed By: #### E SR #### [place] [address] [place] GFR/1.73 sq M.predicted MDRD (S/P/Bld) [Vol rate/Area] mL/min/{1.73_m2} Normal [facility] Comment on above: Performed By: #### E SR #### [address] Globulin (S) [Mass/Vol] 2.6 g/dL Normal [facility] Comment on above: Performed By: #### E SR #### [address] Glucose [Mass/Vol] 119 mg/dL High 70-100 [facility] Comment on above: Result Comment: [place] Glucose Reference Range is dependent on time and content of last meal. Glucose of more than 200 mg/dL in a nonstressed, ambulatory subject supports the diagnosis of Diabetes Mellitus. ADA recommended reference range Performed By: #### E SR #### [address] Potassium [Moles/Vol] 3.9 mmol/L Normal 3.5-5.1 [facility] Comment on above: Performed By: #### E SR #### [address] Protein [Mass/Vol] 6.2 g/dL Low 6.4-8.9 [facility] Comment on above: Performed By: #### E SR #### [address] Sodium [Moles/Vol] 138 mmol/L Normal 136-145 [facility] Comment on above: Performed By: #### E SR #### [place] [address] [place] Urea nitrogen [Mass/Vol] 19 mg/dL Normal 7-25 [facility] Comment on above: Performed By: #### E SR #### [place] [address] [place] Creatinine [Mass/volume] in Serum or PlasmaOrdered By: Talib Faustin on 08-16-2024 Creatinine [Mass/Vol] Creatinine [Mass/v olume] in Serum or Plasma 0.70-1.30 [facility] Eosinophils Auto (Bld) [#/Vo l]Ordered By: Talib Faustin on 08-16-2024 Eosinophils (Bld) [#/Vol] Automated eosinophil count 0.0-0.45 [facility] Eosinophils/100 WBC Auto (Bl d)Ordered By: rick Faustin on 08-16-2024 Eosinophils/100 WBC (Bld) Automated eosinophil % . [facility] Erythrocyte distribution wid th Auto (RBC) [Ratio]Ordered By: Talib Faustin on 08-16-2024 Erythrocyte distribution width (RBC) [Ratio] Erythrocyte distribution width [Ratio] by Automated count High 12.0-14.8 [facility] Globulin Calc (S) [Mass/Vol] Ordered By: rick Faustin on 08-16-2024 Globulin (S) [Mass/Vol] Serum globulin measurement by calculation (mass/volume) [facility] Glucose [Mass/volume] in Ser um or PlasmaOrdered By: rick Faustin on 08-16-2024 Glucose [Mass/Vol] Glucose [Mass/volume ] in Serum or Plasma High 70-100 [facility] Comment on above: ADA recommended refe rence rangeRandom Glucose Reference Range is dependent on time and content of last meal. Glucose of more than 200 mg/dL in a nonstressed, ambulatory subject supports the diagnosis of Diabetes Mellitus. Hematocrit Auto (Bld) [Volum e fraction]Ordered By: Talib Faustin on 08-16-2024 Hematocrit (Bld) [Volume fraction] Hematocrit [Volume Fraction] of Blood by Automated count Low 38.8-50.0 [facility] Hemoglobin [Mass/volume] in BloodOrdered By: Talib Faustin on 08-16-2024 Hemoglobin (Bld) [Mass/Vol] Hemoglobin [Mass/volume] in Blood Low 13.0-17.0 [facility] Leukocytes [#/volume] correc suzy for nucleated erythrocytes in Blood by Automated counOrdered By: Talib Faustin on 08-16-2024 WBC corrected for nucl RBC Auto (Bld) [#/Vol] Leukocytes [#/volume] corrected for nucleated erythrocytes in Blood by Automated coun 4.1-10.5 [facility] Lymphocytes Auto (Bld) [#/Vo l]Ordered By: Talib Faustin on 08-16-2024 Lymphocytes (Bld) [#/Vol] Lymphocytes [#/volume] in Blood by Automated count Low 1.00-4.8 [facility] Lymphocytes/100 WBC Auto (Bl d)Ordered By: Talib Faustin on 08-16-2024 Lymphocytes/100 WBC (Bld) Lymphocytes/100 leukocytes in Blood by Automated count . [facility] MCH Auto (RBC) [Entitic mass ]Ordered By: Talib Faustin on 08-16-2024 MCH (RBC) [Entitic mass] MCH [Entitic mass] by Automated count 27.5-35.2 [facility] MCHC Auto (RBC) [Mass/Vol]Or dered By: Talib Faustin on 08-16-2024 MCHC (RBC) [Mass/Vol] MCHC [Mass/volume] by Automated count 32.5-35.6 [facility] MCV Auto (RBC) [Entitic vol] Ordered By: Talib Faustin on 08-16-2024 MCV (RBC) [Entitic vol] MCV [Entitic volume] by Automated count 83.5-101 [facility] Monocytes Auto (Bld) [#/Vol] Ordered By: Talib Faustin on 08-16-2024 Monocytes (Bld) [#/Vol] Automated blood monocyte count High 0.0-0.8 [facility] Monocytes/100 WBC Auto (Bld) Ordered By: Talib Faustin on 08-16-2024 Monocytes/100 WBC (Bld) Automated monocyte % . [facility] Neutrophils Auto (Bld) [#/Vo l]Ordered By: Talib Faustin on 08-16-2024 Neutrophils (Bld) [#/Vol] Neutrophils [#/volume] in Blood by Automated count 1.8-7.7 [facility] Neutrophils/100 WBC Auto (Bl d)Ordered By: Talib Faustin on 08-16-2024 Neutrophils/100 WBC (Bld) Automated neutrophil % . [facility] No Panel InformationOrdered By: Talib Faustin on 08-16-2024 Estimated GFR (CKD-EPI) > 60.0 mL/Min [facility] Creatinine Clearance (Chem 59.79 [facility] Nucleated erythrocytes [Pres ence] in Blood by Automated countOrdered By: Talib Faustin on 08-16-2024 Nucleated RBC Auto Ql (Bld) Nucleated erythrocytes [Presence] in Blood by Automated count 0-0.5 [facility] Platelet mean volume Auto (B ld) [Entitic vol]Ordered By: Talib Faustin on 08-16-2024 Platelet mean volume (Bld) [Entitic vol] Platelet mean volume [Entitic volume] in Blood by Automated count 6.6-10.1 [facility] Platelets Auto (Bld) [#/Vol] Ordered By: Talib Faustin on 08-16-2024 Platelets (Bld) [#/Vol] Platelets [#/volume] in Blood by Automated count 150-450 [facility] Potassium [Moles/volume] in Serum or PlasmaOrdered By: Talib Faustin on 08-16-2024 Potassium [Moles/Vol] Potassium [Moles/v olume] in Serum or Plasma 3.5-5.1 [facility] Protein [Mass/volume] in Ser um or PlasmaOrdered By: Talib Faustin on 08-16-2024 Protein [Mass/Vol] Protein [Mass/volume ] in Serum or Plasma Low 6.4-8.9 [facility] RBC Auto (Bld) [#/Vol]Ordere d By: Talib Faustin on 08-16-2024 RBC (Bld) [#/Vol] Erythrocytes [#/volu me] in Blood by Automated count Low 3.90-5.60 [facility] Serum or plasma albumin/glob ulin mass ratioOrdered By: Talib Faustin on 08-16-2024 Albumin/Globulin [Mass ratio] Serum or plasma albumin/globulin mass ratio [facility] Serum or plasma anion gap de terminationOrdered By: rick Faustin on 08-16-2024 Anion gap [Moles/Vol] Serum or plasma an ion gap determination 6.0-15.0 [facility] Sodium [Moles/volume] in Ser um or PlasmaOrdered By: rick Faustin on 08-16-2024 Sodium [Moles/Vol] Sodium [Moles/volume ] in Serum or Plasma 136-145 [facility] Urea nitrogen [Mass/volume] in Serum or PlasmaOrdered By: rick Faustin on 08-16-2024 Urea nitrogen [Mass/Vol] Urea nitrogen [Mass/volume] in Serum or Plasma 7-25 [facility] WBC Auto (Bld) [#/Vol]Ordere d By: rick Faustin on 08-16-2024 WBC (Bld) [#/Vol] Leukocytes [#/volume ] in Blood by Automated count 4.1-10.5 [facility] Complete Blood Count Auto Di ffon 08-09-2024 Basophils (Bld) [#/Vol] 0.0 10*3/uL Normal 0.0-0.2 [facility] Comment on above: Result Comment: PERF ORMED BY: [place] [address] PATHOLOGIST PROOF CARRIER HEBER SHANNON M.D. Performed By: #### C MP, CBC #### [facility] [address] [place] [address] [place] Basophils/100 WBC (Bld) 0.4 % Normal . [facility] Comment on above: Performed By: #### C MP, CBC #### [facility] [address] [place] [address] [place] Eosinophils (Bld) [#/Vol] 0.0 10*3/uL Normal 0.0-0.45 [facility] Comment on above: Performed By: #### C MP, CBC #### [facility] [address] [place] [address] [place] Eosinophils/100 WBC (Bld) 0.5 % Normal . [facility] Comment on above: Performed By: #### C MP, CBC #### [address] Erythrocyte distribution width (RBC) [Ratio] 14.7 % Normal 12.0-14.8 [facility] Comment on above: Performed By: #### C MP, CBC #### [address] Hematocrit (Bld) [Volume fraction] 36.9 % Low 38.8-50.0 [facility] Comment on above: Performed By: #### C MP, CBC #### [address] Hemoglobin (Bld) [Mass/Vol] 12.4 g/dL Low 13.0-17.0 [facility] Comment on above: Performed By: #### C MP, CBC #### [address] Lymphocytes (Bld) [#/Vol] 0.6 10*3/uL Low 1.00-4.8 [facility] Comment on above: Performed By: #### C MP, CBC #### [address] Lymphocytes/100 WBC (Bld) 7.4 % Normal . [facility] Comment on above: Performed By: #### C MP, CBC #### [address] MCH (RBC) [Entitic mass] 30.9 pg Normal 27.5-35.2 [facility] Comment on above: Performed By: #### C MP, CBC #### [address] MCV (RBC) [Entitic vol] 92.2 fL Normal 83.5-101 [facility] Comment on above: Performed By: #### C MP, CBC #### [address] Mean Corpuscular HGB Conc 33.6 g/dL Normal 32.5-35.6 [facility] Comment on above: Performed By: #### C MP, CBC #### [facility] [address] [place] [address] [place] Monocytes (Bld) [#/Vol] 0.8 10*3/uL Normal 0.0-0.8 [facility] Comment on above: Performed By: #### C MP, CBC #### [facility] [address] [place] [id number] [place] Monocytes/100 WBC (Bld) 8.9 % Normal . [facility] Comment on above: Performed By: #### C MP, CBC #### [facility] [address] [place] [address] [place] Neutrophils (Bld) [#/Vol] 7.2 10*3/uL Normal 1.8-7.7 [facility] Comment on above: Performed By: #### C MP, CBC #### [facility] [address] [place] [address] [place] Neutrophils/100 WBC (Bld) 82.8 % Normal . [facility] [facility], [facility] Comment on above: Performed By: #### C MP, CBC #### [facility] [address] [place] [address] [place] NRBC% 0.1 /100{WBC} Normal 0-0.5 [facility] Comment on above: Performed By: #### C MP, CBC #### [facility] [address] [place] [address] [place] Platelet mean volume (Bld) [Entitic vol] 7.9 fL Normal 6.6-10.1 [facility] Comment on above: Performed By: #### C MP, CBC #### [facility] [address] [place] [address] [place] Platelets (Bld) [#/Vol] 245 10*3/uL Normal 150-450 The [facility], [facility] Comment on above: Performed By: #### C MP, CBC #### [facility] [address] [place] [address] [place] RBC (Bld) [#/Vol] 4.00 10*6/uL Normal 3.90-5.60 The [facility] Comment on above: Performed By: #### C MP, CBC #### [address] WBC (Bld) [#/Vol] 8.7 10*3/uL Normal 4.1-10.5 The [facility] Comment on above: Performed By: #### C MP, CBC #### [address] Comprehensive Metabolic Pane obdulio 08-09-2024 Albumin [Mass/Vol] 3.7 g/dL Normal 3.5-5.7 [facility] Comment on above: Performed By: #### C MP, CBC #### [address] Albumin/Globulin [Mass ratio] 1.2 {ratio} Normal [facility], [facility] Comment on above: Performed By: #### C MP, CBC #### [address] ALP [Catalytic activity/Vol] 69 U/L Normal 34-104 [facility] Comment on above: Performed By: #### C MP, CBC #### [address] ALT [Catalytic activity/Vol] 18 U/L Normal 7-52 [facility], [facility] Comment on above: Performed By: #### C MP, CBC #### [address] Anion gap [Moles/Vol] 10.4 mmol/L Normal 6.0-15.0 [facility] Comment on above: Performed By: #### C MP, CBC #### [address] AST [Catalytic activity/Vol] 18 U/L Normal 13-39 [facility] Comment on above: Performed By: #### C MP, CBC #### [address] Bilirubin [Mass/Vol] 0.4 mg/dL Normal 0.3-1.0 [facility] Comment on above: Performed By: #### C MP, CBC #### [address] Calcium [Mass/Vol] 9.4 mg/dL Normal 8.6-10.3 The [facility] Comment on above: Performed By: #### C MP, CBC #### [address] Chloride [Moles/Vol] 102 mmol/L Normal 98-107 [facility] Comment on above: Performed By: #### C MP, CBC #### [address] CO2 [Moles/Vol] 26.5 mmol/L Normal 21.0-31.0 The [facility] Comment on above: Performed By: #### C MP, CBC #### [address] Creatinine [Mass/Vol] 0.91 mg/dL Normal 0.70-1.30 [facility] Comment on above: Performed By: #### C MP, CBC #### [place] [address] [place] Creatinine Clr Calc Pharmacy 54.53 Normal [facility] Comment on above: Result Comment: PERF ORMED BY: [place] [address] PATHOLOGIST PROOF CARRIER HEBER SHANNON M.D. Performed By: #### C MP, CBC #### [place] [address] [place] GFR/1.73 sq M.predicted MDRD (S/P/Bld) [Vol rate/Area] mL/min/{1.73_m2} Normal [facility] Comment on above: Performed By: #### C MP, CBC #### [place] [address] [place] Globulin (S) [Mass/Vol] 3.0 g/dL Normal [facility] Comment on above: Performed By: #### C MP, CBC #### [place] [address] [place] Glucose [Mass/Vol] 163 mg/dL High 70-100 The [facility] Comment on above: Result Comment: [place] Glucose Reference Range is dependent on time and content of last meal. Glucose of more than 200 mg/dL in a nonstressed, ambulatory subject supports the diagnosis of Diabetes Mellitus. ADA recommended reference range Performed By: #### C MP, CBC #### [facility] [address] [place] [address] [place] Potassium [Moles/Vol] 3.9 mmol/L Normal 3.5-5.1 [facility] Comment on above: Performed By: #### C MP, CBC #### [facility] [address] [place] [address] [place] Protein [Mass/Vol] 6.7 g/dL Normal 6.4-8.9 The [facility] Comment on above: Performed By: #### C MP, CBC #### [place] [address] [place] Sodium [Moles/Vol] 135 mmol/L Low 136-145 The [facility] Comment on above: Performed By: #### C MP, CBC #### [facility] [address] [place] [address] [place] Urea nitrogen [Mass/Vol] 31 mg/dL High 7-25 [facility] Comment on above: Performed By: #### C MP, CBC #### [place] [address] [place] Complete Blood Count Auto Di ffon 08-02-2024 Basophils (Bld) [#/Vol] 0.1 10*3/uL Normal 0.0-0.2 [facility] Comment on above: Result Comment: PERF ORMED BY: [place] [address] PATHOLOGIST PROOF CARRIER HEBER SHANNON M.D. Performed By: #### M G, SCAN CBC, CMP #### [facility] [address] [place] [address] [place] Basophils/100 WBC (Bld) 1.0 % Normal . [facility] Comment on above: Performed By: #### M G, SCAN CBC, CMP #### [address] Eosinophils (Bld) [#/Vol] 0.0 10*3/uL Normal 0.0-0.45 [facility] Comment on above: Performed By: #### M G, SCAN CBC, CMP #### [address] Eosinophils/100 WBC (Bld) 0.6 % Normal . [facility] Comment on above: Performed By: #### M G, SCAN CBC, CMP #### [address] Erythrocyte distribution width (RBC) [Ratio] 14.0 % Normal 12.0-14.8 [facility] Comment on above: Performed By: #### M G, SCAN CBC, CMP #### [address] Hematocrit (Bld) [Volume fraction] 35.5 % Low 38.8-50.0 [facility] Comment on above: Performed By: #### M G, SCAN CBC, CMP #### [address] Hemoglobin (Bld) [Mass/Vol] 12.1 g/dL Low 13.0-17.0 [facility] Comment on above: Performed By: #### M G, SCAN CBC, CMP #### [place] [address] [place] Lymphocytes (Bld) [#/Vol] 0.6 10*3/uL Low 1.00-4.8 [facility] Comment on above: Performed By: #### M G, SCAN CBC, CMP #### [place] [address] [place] Lymphocytes/100 WBC (Bld) 10.3 % Normal . [facility] Comment on above: Performed By: #### M G, SCAN CBC, CMP #### [address] MCH (RBC) [Entitic mass] 31.4 pg Normal 27.5-35.2 [facility] Comment on above: Performed By: #### M G, SCAN CBC, CMP #### [address] MCV (RBC) [Entitic vol] 92.2 fL Normal 83.5-101 [facility] Comment on above: Performed By: #### M G, SCAN CBC, CMP #### [address] Mean Corpuscular HGB Conc 34.0 g/dL Normal 32.5-35.6 [facility] Comment on above: Performed By: #### M G, SCAN CBC, CMP #### [address] Monocytes (Bld) [#/Vol] 0.9 10*3/uL High 0.0-0.8 [facility] Comment on above: Performed By: #### M G, SCAN CBC, CMP #### [address] Monocytes/100 WBC (Bld) 14.8 % Normal . [facility] Comment on above: Performed By: #### M G, SCAN CBC, CMP #### [address] Neutrophils (Bld) [#/Vol] 4.5 10*3/uL Normal 1.8-7.7 [facility] Comment on above: Performed By: #### M G, SCAN CBC, CMP #### [address] Neutrophils/100 WBC (Bld) 73.3 % Normal . [facility] Comment on above: Performed By: #### M G, SCAN CBC, CMP #### [address] NRBC% 0.1 /100{WBC} Normal 0-0.5 The [facility] Comment on above: Performed By: #### M G, SCAN CBC, CMP #### [address] Platelet mean volume (Bld) [Entitic vol] 7.4 fL Normal 6.6-10.1 [facility] Comment on above: Performed By: #### M G, SCAN CBC, CMP #### [address] Platelets (Bld) [#/Vol] 215 10*3/uL Normal 150-450 [facility] Comment on above: Performed By: #### M G, SCAN CBC, CMP #### [address] RBC (Bld) [#/Vol] 3.85 10*6/uL Low 3.90-5.60 The [facility] Comment on above: Performed By: #### M G, SCAN CBC, CMP #### [address] WBC (Bld) [#/Vol] 6.2 10*3/uL Normal 4.1-10.5 The [facility] Comment on above: Performed By: #### M G, SCAN CBC, CMP #### [address] Comprehensive Metabolic Pane obdulio 08-02-2024 Albumin [Mass/Vol] 3.6 g/dL Normal 3.5-5.7 The [facility] Comment on above: Performed By: #### M G, SCAN CBC, CMP #### [address] Albumin/Globulin [Mass ratio] 1.3 {ratio} Normal [facility] Comment on above: Performed By: #### M G, SCAN CBC, CMP #### [address] ALP [Catalytic activity/Vol] 75 U/L Normal 34-104 [facility] Comment on above: Performed By: #### M G, SCAN CBC, CMP #### [address] ALT [Catalytic activity/Vol] 12 U/L Normal 7-52 [facility] Comment on above: Performed By: #### M G, SCAN CBC, CMP #### [facility] [address] Anion gap [Moles/Vol] 10.1 mmol/L Normal 6.0-15.0 Th e [facility] Comment on above: Performed By: #### M G, SCAN CBC, CMP #### [facility] [address] AST [Catalytic activity/Vol] 13 U/L Normal 13-39 [facility] Comment on above: Performed By: #### M G, SCAN CBC, CMP #### [facility] [address] Bilirubin [Mass/Vol] 0.5 mg/dL Normal 0.3-1.0 [facility] Comment on above: Performed By: #### M G, SCAN CBC, CMP #### [address] Calcium [Mass/Vol] 8.5 mg/dL Low 8.6-10.3 The [facility] Comment on above: Performed By: #### M G, SCAN CBC, CMP #### [place] [address] [place] Chloride [Moles/Vol] 103 mmol/L Normal 98-107 [facility] Comment on above: Performed By: #### M G, SCAN CBC, CMP #### [facility] [address] [place] [address] [place] CO2 [Moles/Vol] 27.1 mmol/L Normal 21.0-31.0 The [facility] Comment on above: Performed By: #### M G, SCAN CBC, CMP #### [facility] [address] [place] [address] [place] Creatinine [Mass/Vol] 1.03 mg/dL Normal 0.70-1.30 [facility] Comment on above: Performed By: #### M G, SCAN CBC, CMP #### [facility] [address] [place] [address] [place] Creatinine Clr Calc Pharmacy 48.18 Normal [facility] Comment on above: Result Comment: PERF ORMED BY: [address] [place] [address] PATHOLOGIST PROOF CARRIER HEBER SHANNON M.D. Performed By: #### M G, SCAN CBC, CMP #### [address] GFR/1.73 sq M.predicted MDRD (S/P/Bld) [Vol rate/Area] mL/min/{1.73_m2} Normal [facility] Comment on above: Performed By: #### M G, SCAN CBC, CMP #### [address] Globulin (S) [Mass/Vol] 2.7 g/dL Normal [facility] Comment on above: Performed By: #### M G, SCAN CBC, CMP #### [address] Glucose [Mass/Vol] 120 mg/dL High 70-100 The [facility] Comment on above: Result Comment: [place] Glucose Reference Range is dependent on time and content of last meal. Glucose of more than 200 mg/dL in a nonstressed, ambulatory subject supports the diagnosis of Diabetes Mellitus. ADA recommended reference range Performed By: #### M G, SCAN CBC, CMP #### [address] Potassium [Moles/Vol] 4.2 mmol/L Normal 3.5-5.1 [facility] Comment on above: Performed By: #### M G, SCAN CBC, CMP #### [address] Protein [Mass/Vol] 6.3 g/dL Low 6.4-8.9 [facility] Comment on above: Performed By: #### M G, SCAN CBC, CMP #### [address] Sodium [Moles/Vol] 136 mmol/L Normal 136-145 [facility] Comment on above: Performed By: #### M G, SCAN CBC, CMP #### [address] Urea nitrogen [Mass/Vol] 35 mg/dL High 7 [facility] Comment on above: Performed By: #### M G, SCAN CBC, CMP #### [facility] [address] Alanine aminotransferase [En zymatic activity/volume] in Serum or PlasmaOrdered By: Talib Faustin on 07-26-2024 ALT [Catalytic activity/Vol] Alanine aminotransferase [Enzymatic activity/volume] in Serum or Plasma 7-52 [facility] Albumin [Mass/volume] in Ser um or Plasma by Bromocresol green (BCG) dye binding methoOrdered By: Talib Faustin on 07-26-2024 Albumin BCG dye [Mass/Vol] Albumin [Mass/volume] in Serum or Plasma by Bromocresol green (BCG) dye binding metho 3.5-5.7 [facility] Alkaline phosphatase [Enzyma tic activity/volume] in Serum or PlasmaOrdered By: Talib Faustin on 07-26-2024 ALP [Catalytic activity/Vol] Alkaline phosphatase [Enzymatic activity/volume] in Serum or Plasma 34-104 [facility] Aspartate aminotransferase [ Enzymatic activity/volume] in Serum or PlasmaOrdered By: Talib Faustin on 07-26-2024 AST [Catalytic activity/Vol] Aspartate aminotransferase [Enzymatic activity/volume] in Serum or Plasma 13-39 [facility] Basophils Auto (Bld) [#/Vol] Ordered By: Talib Faustin on 07-26-2024 Basophils (Bld) [#/Vol] Automated basophil count 0.0-0.2 [facility] Basophils/100 WBC Auto (Bld) Ordered By: rick Faustin on 07-26-2024 Basophils/100 WBC (Bld) Automated basophil % . [facility] Bilirubin.total [Mass/volume ] in Serum or PlasmaOrdered By: Talib Faustin on 07-26-2024 Bilirubin [Mass/Vol] Bilirubin.total [Mass/volume] in Serum or Plasma 0.3-1.0 [facility] Calcium [Mass/volume] in Ser um or PlasmaOrdered By: Talib Faustin on 07-26-2024 Calcium [Mass/Vol] Calcium [Mass/volume ] in Serum or Plasma 8.6-10.3 [facility] Carbon dioxide, total [Moles /volume] in Serum or PlasmaOrdered By: [facility] on 07-26-2024 CO2 [Moles/Vol] Carbon dioxide, tota l [Moles/volume] in Serum or Plasma 21.0-31.0 [facility] Chloride [Moles/volume] in S stephanie or PlasmaOrdered By: [facility] 07-[facility]-2024 Chloride [Moles/Vol] Chloride [Moles/vol ume] in Serum or Plasma 98-107 [facility] Complete Blood Count Auto Di ffon 07-26-2024 Basophils (Bld) [#/Vol] 0.1 10*3/uL Normal 0.0-0.2 [facility] Comment on above: Result Comment: PERF ORMED BY: [place] [address] PATHOLOGIST PROOF CARRIER HEBER SHANNON M.D. Performed By: #### E SR #### [address] Basophils/100 WBC (Bld) 1.0 % Normal . [facility] Comment on above: Performed By: #### E SR #### [place] [address] [place] Eosinophils (Bld) [#/Vol] 0.1 10*3/uL Normal 0.0-0.45 [facility] Comment on above: Performed By: #### E SR #### [place] [address] [place] Eosinophils/100 WBC (Bld) 1.4 % Normal . [facility] Comment on above: Performed By: #### E SR #### [address] Erythrocyte distribution width (RBC) [Ratio] 13.6 % Normal 12.0-14.8 [facility] Comment on above: Performed By: #### E SR #### [address] Hematocrit (Bld) [Volume fraction] 35.4 % Low 38.8-50.0 [facility] Comment on above: Performed By: #### E SR #### [address] Hemoglobin (Bld) [Mass/Vol] 12.0 g/dL Low 13.0-17.0 [facility] Comment on above: Performed By: #### E SR #### [address] Lymphocytes (Bld) [#/Vol] 0.9 10*3/uL Low 1.00-4.8 [facility] Comment on above: Performed By: #### E SR #### [address] Lymphocytes/100 WBC (Bld) 13.0 % Normal . [facility] Comment on above: Performed By: #### E SR #### [address] MCH (RBC) [Entitic mass] 31.1 pg Normal 27.5-35.2 [facility] Comment on above: Performed By: #### E SR #### [address] MCV (RBC) [Entitic vol] 91.5 fL Normal 83.5-101 [facility] Comment on above: Performed By: #### E SR #### [address] Mean Corpuscular HGB Conc 34.0 g/dL Normal 32.5-35.6 [facility] Comment on above: Performed By: #### E SR #### [address] Monocytes (Bld) [#/Vol] 0.7 10*3/uL Normal 0.0-0.8 [facility] Comment on above: Performed By: #### E SR #### [place] [address] [place] Monocytes/100 WBC (Bld) 9.8 % Normal . [facility] Comment on above: Performed By: #### E SR #### [facility] [address] Neutrophils (Bld) [#/Vol] 5.1 10*3/uL Normal 1.8-7.7 [facility] Comment on above: Performed By: #### E SR #### [facility] [address] Neutrophils/100 WBC (Bld) 74.8 % Normal . [facility] Comment on above: Performed By: #### E SR #### [facility] [address] NRBC% 0.1 /100{WBC} Normal 0-0.5 [facility] Comment on above: Performed By: #### E SR #### [address] Platelet mean volume (Bld) [Entitic vol] 7.4 fL Normal 6.6-10.1 [facility] Comment on above: Performed By: #### E SR #### [facility] [address] Platelets (Bld) [#/Vol] 217 10*3/uL Normal 150-450 [facility] Comment on above: Performed By: #### E SR #### [place] [address] [place] RBC (Bld) [#/Vol] 3.87 10*6/uL Low 3.90-5.60 [facility] Comment on above: Performed By: #### E SR #### [facility] [address] WBC (Bld) [#/Vol] 6.9 10*3/uL Normal 4.1-10.5 [facility] Comment on above: Performed By: #### E SR #### [facility] [address] [place] [address] Comprehensive Metabolic Pane obdulio 07-26-2024 Albumin [Mass/Vol] 3.7 g/dL Normal 3.5-5.7 [facility] Comment on above: Performed By: #### E SR #### [address] Albumin/Globulin [Mass ratio] 1.3 {ratio} Normal [facility] Comment on above: Performed By: #### E SR #### [address] ALP [Catalytic activity/Vol] 80 U/L Normal 34-104 [facility] Comment on above: Performed By: #### E SR #### [address] ALT [Catalytic activity/Vol] 13 U/L Normal 7-52 [facility] Comment on above: Performed By: #### E SR #### [address] Anion gap [Moles/Vol] 9.4 mmol/L Normal 6.0-15.0 [facility] Comment on above: Performed By: #### E SR #### [address] AST [Catalytic activity/Vol] 14 U/L Normal 13-39 [facility] Comment on above: Performed By: #### E SR #### [address] Bilirubin [Mass/Vol] 0.5 mg/dL Normal 0.3-1.0 [facility] Comment on above: Performed By: #### E SR #### [address] Calcium [Mass/Vol] 8.9 mg/dL Normal 8.6-10.3 [facility] Comment on above: Performed By: #### E SR #### [address] Chloride [Moles/Vol] 104 mmol/L Normal 98-107 [facility] Comment on above: Performed By: #### E SR #### [address] CO2 [Moles/Vol] 26.8 mmol/L Normal 21.0-31.0 The [facility] Comment on above: Performed By: #### E SR #### [address] Creatinine [Mass/Vol] 0.87 mg/dL Normal 0.70-1.30 [facility] Comment on above: Performed By: #### E SR #### [address] Creatinine Clr Calc Pharmacy 57.04 Normal [facility] Comment on above: Result Comment: PERF ORMED BY: [place] [address] PATHOLOGIST PROOF CARRIER HEBER SHANNON M.D. Performed By: #### E SR #### [address] GFR/1.73 sq M.predicted MDRD (S/P/Bld) [Vol rate/Area] mL/min/{1.73_m2} Normal [facility] Comment on above: Performed By: #### E SR #### [address] Globulin (S) [Mass/Vol] 2.9 g/dL Normal [facility] [facility] Comment on above: Performed By: #### E SR #### [address] Glucose [Mass/Vol] 107 mg/dL High 70-100 [facility] Comment on above: Result Comment: [place] Glucose Reference Range is dependent on time and content of last meal. Glucose of more than 200 mg/dL in a nonstressed, ambulatory subject supports the diagnosis of Diabetes Mellitus. ADA recommended reference range Performed By: #### E SR #### [address] Potassium [Moles/Vol] 4.2 mmol/L Normal 3.5-5.1 [facility] Comment on above: Performed By: #### E SR #### [facility] [address] Protein [Mass/Vol] 6.6 g/dL Normal 6.4-8.9 [facility] Comment on above: Performed By: #### E SR #### [facility] [address] Sodium [Moles/Vol] 136 mmol/L Normal 136-145 [facility] Comment on above: Performed By: #### E SR #### [facility] [address] Urea nitrogen [Mass/Vol] 30 mg/dL High 7-25 [facility] Comment on above: Performed By: #### E SR #### [facility] [address] [place] [address] Creatinine [Mass/volume] in Serum or PlasmaOrdered By: Talib Faustin on 07-26-2024 Creatinine [Mass/Vol] Creatinine [Mass/v olume] in Serum or Plasma 0.70-1.30 [facility] Eosinophils Auto (Bld) [#/Vo l]Ordered By: rick Faustin on 07-26-2024 Eosinophils (Bld) [#/Vol] Automated eosinophil count 0.0-0.45 [facility] Eosinophils/100 WBC Auto (Bl d)Ordered By: Talib Faustin on 07-26-2024 Eosinophils/100 WBC (Bld) Automated eosinophil % . [facility] Erythrocyte distribution wid th Auto (RBC) [Ratio]Ordered By: Talib Faustin on 07-26-2024 Erythrocyte distribution width (RBC) [Ratio] Erythrocyte distribution width [Ratio] by Automated count 12.0-14.8 [facility] Globulin Calc (S) [Mass/Vol] Ordered By: Talib Faustin on 07-26-2024 Globulin (S) [Mass/Vol] Serum globulin measurement by calculation (mass/volume) [facility] Glucose [Mass/volume] in Ser um or PlasmaOrdered By: Talib Faustin on 07-26-2024 Glucose [Mass/Vol] Glucose [Mass/volume ] in Serum or Plasma High 70-100 [facility] Comment on above: ADA recommended refe rence rangeRandom Glucose Reference Range is dependent on time and content of last meal. Glucose of more than 200 mg/dL in a nonstressed, ambulatory subject supports the diagnosis of Diabetes Mellitus. Hematocrit Auto (Bld) [Volum e fraction]Ordered By: Talib Faustin on 07-26-2024 Hematocrit (Bld) [Volume fraction] Hematocrit [Volume Fraction] of Blood by Automated count Low 38.8-50.0 [facility] Hemoglobin [Mass/volume] in BloodOrdered By: rick Faustin on 07-26-2024 Hemoglobin (Bld) [Mass/Vol] Hemoglobin [Mass/volume] in Blood Low 13.0-17.0 [facility] Leukocytes [#/volume] correc szuy for nucleated erythrocytes in Blood by Automated counOrdered By: Talib Faustin on 07-26-2024 WBC corrected for nucl RBC Auto (Bld) [#/Vol] Leukocytes [#/volume] corrected for nucleated erythrocytes in Blood by Automated coun 4.1-10.5 [facility] Lymphocytes Auto (Bld) [#/Vo l]Ordered By: rick Faustin on 07-26-2024 Lymphocytes (Bld) [#/Vol] Lymphocytes [#/volume] in Blood by Automated count Low 1.00-4.8 [facility] Lymphocytes/100 WBC Auto (Bl d)Ordered By: rick Faustin on 07-26-2024 Lymphocytes/100 WBC (Bld) Lymphocytes/100 leukocytes in Blood by Automated count . [facility] MCH Auto (RBC) [Entitic mass ]Ordered By: Talib Faustin on 07-26-2024 MCH (RBC) [Entitic mass] MCH [Entitic mass] by Automated count 27.5-35.2 [facility] MCHC Auto (RBC) [Mass/Vol]Or dered By: Talib Faustin on 07-26-2024 MCHC (RBC) [Mass/Vol] MCHC [Mass/volume] by Automated count 32.5-35.6 [facility] MCV Auto (RBC) [Entitic vol] Ordered By: Talib Faustin on 07-26-2024 MCV (RBC) [Entitic vol] MCV [Entitic volume] by Automated count 83.5-101 [facility] Monocytes Auto (Bld) [#/Vol] Ordered By: Talib Faustin on 07-26-2024 Monocytes (Bld) [#/Vol] Automated blood monocyte count 0.0-0.8 [facility] Monocytes/100 WBC Auto (Bld) Ordered By: rick Faustin on 07-26-2024 Monocytes/100 WBC (Bld) Automated monocyte % . [facility] Neutrophils Auto (Bld) [#/Vo l]Ordered By: Talib Faustin on 07-26-2024 Neutrophils (Bld) [#/Vol] Neutrophils [#/volume] in Blood by Automated count 1.8-7.7 [facility] Neutrophils/100 WBC Auto (Bl d)Ordered By: rick Faustin on 07-26-2024 Neutrophils/100 WBC (Bld) Automated neutrophil % . [facility] No Panel InformationOrdered By: Tailb Faustin on 07-26-2024 Estimated GFR (CKD-EPI) > 60.0 mL/Min [facility] Creatinine Clearance (Chem 57.04 [facility] Nucleated erythrocytes [Pres ence] in Blood by Automated countOrdered By: Talib Faustin on 07-26-2024 Nucleated RBC Auto Ql (Bld) Nucleated erythrocytes [Presence] in Blood by Automated count 0-0.5 [facility] Platelet mean volume Auto (B ld) [Entitic vol]Ordered By: Talib Faustin on 07-26-2024 Platelet mean volume (Bld) [Entitic vol] Platelet mean volume [Entitic volume] in Blood by Automated count 6.6-10.1 [facility] Platelets Auto (Bld) [#/Vol] Ordered By: Talib Faustin on 07-26-2024 Platelets (Bld) [#/Vol] Platelets [#/volume] in Blood by Automated count 150-450 [facility] Potassium [Moles/volume] in Serum or PlasmaOrdered By: Talib Faustin on 07-26-2024 Potassium [Moles/Vol] Potassium [Moles/v olume] in Serum or Plasma 3.5-5.1 [facility] Protein [Mass/volume] in Ser um or PlasmaOrdered By: Talib Faustin on 07-26-2024 Protein [Mass/Vol] Protein [Mass/volume ] in Serum or Plasma 6.4-8.9 [facility] RBC Auto (Bld) [#/Vol]Ordere d By: Talib LamasDelvin on 07-26-2024 RBC (Bld) [#/Vol] Erythrocytes [#/volu me] in Blood by Automated count Low 3.90-5.60 [facility] Serum or plasma albumin/glob ulin mass ratioOrdered By: rick LamasDelvin on 07-26-2024 Albumin/Globulin [Mass ratio] Serum or plasma albumin/globulin mass ratio [facility] Serum or plasma anion gap de terminationOrdered By: Talib Faustin on 07-26-2024 Anion gap [Moles/Vol] Serum or plasma an ion gap determination 6.0-15.0 [facility] Sodium [Moles/volume] in Ser um or PlasmaOrdered By: rick LamasDelvin on 07-26-2024 Sodium [Moles/Vol] Sodium [Moles/volume ] in Serum or Plasma 136-145 [facility] Urea nitrogen [Mass/volume] in Serum or PlasmaOrdered By: rick LamasDelvin on 07-26-2024 Urea nitrogen [Mass/Vol] Urea nitrogen [Mass/volume] in Serum or Plasma High 7-25 [facility] WBC Auto (Bld) [#/Vol]Ordere d By: rick LamasDelvin on 07-26-2024 WBC (Bld) [#/Vol] Leukocytes [#/volume ] in Blood by Automated count 4.1-10.5 [facility] Complete Blood Count Auto Di ffon 07-19-2024 Basophils (Bld) [#/Vol] 0.0 10*3/uL Normal 0.0-0.2 [facility] Comment on above: Result Comment: PERF ORMED BY: [facility] [address] [place] [address] PATHOLOGIST PROOF CARRIER HEBER SHANNON M.D. Performed By: #### M G, CMP, CBC #### [address] Performed By: #### M G, SCAN CBC, CMP #### [address] Basophils/100 WBC (Bld) 0.5 % Normal . [facility] Comment on above: Performed By: #### M G, CMP, CBC #### [address] Performed By: #### M G, SCAN CBC, CMP #### [address] Eosinophils (Bld) [#/Vol] 0.1 10*3/uL Normal 0.0-0.45 [facility] Comment on above: Performed By: #### M G, CMP, CBC #### [address] Performed By: #### M G, SCAN CBC, CMP #### [address] Eosinophils/100 WBC (Bld) 1.4 % Normal . [facility] Comment on above: Performed By: #### M G, CMP, CBC #### [address] Performed By: #### M G, SCAN CBC, CMP #### [address] Erythrocyte distribution width (RBC) [Ratio] 13.4 % Normal 12.0-14.8 [facility] Comment on above: Performed By: #### M G, CMP, CBC #### [address] Performed By: #### M G, SCAN CBC, CMP #### [address] Hematocrit (Bld) [Volume fraction] 35.7 % Low 38.8-50.0 [facility] Comment on above: Performed By: #### M G, CMP, CBC #### [address] Performed By: #### M G, SCAN CBC, CMP #### [address] Hemoglobin (Bld) [Mass/Vol] 12.0 g/dL Low 13.0-17.0 [facility] Comment on above: Performed By: #### M G, CMP, CBC #### [address] Performed By: #### M G, SCAN CBC, CMP #### [address] Lymphocytes (Bld) [#/Vol] 1.3 10*3/uL Normal 1.00-4.8 [facility] Comment on above: Performed By: #### M G, CMP, CBC #### [address] Performed By: #### M G, SCAN CBC, CMP #### [address] Lymphocytes/100 WBC (Bld) 11.6 % Normal . [facility] Comment on above: Performed By: #### M G, CMP, CBC #### [address] Performed By: #### M G, SCAN CBC, CMP #### [address] MCH (RBC) [Entitic mass] 30.7 pg Normal 27.5-35.2 [facility] Comment on above: Performed By: #### M G, CMP, CBC #### [address] Performed By: #### M G, SCAN CBC, CMP #### [address] MCV (RBC) [Entitic vol] 91.3 fL Normal 83.5-101 [facility] Comment on above: Performed By: #### M G, CMP, CBC #### [address] Performed By: #### M G, SCAN CBC, CMP #### [address] Mean Corpuscular HGB Conc 33.7 g/dL Normal 32.5-35.6 [facility] Comment on above: Performed By: #### M G, CMP, CBC #### [address] Performed By: #### M G, SCAN CBC, CMP #### [address] Monocytes (Bld) [#/Vol] 0.8 10*3/uL Normal 0.0-0.8 [facility] Comment on above: Performed By: #### M G, CMP, CBC #### [address] Performed By: #### M G, SCAN CBC, CMP #### [address] Monocytes/100 WBC (Bld) 7.4 % Normal . [facility] Comment on above: Performed By: #### M G, CMP, CBC #### [address] Performed By: #### M G, SCAN CBC, CMP #### [address] Neutrophils (Bld) [#/Vol] 8.7 10*3/uL High 1.8-7.7 [facility] Comment on above: Performed By: #### M G, CMP, CBC #### [address] Performed By: #### M G, SCAN CBC, CMP #### [address] Neutrophils/100 WBC (Bld) 79.1 % Normal . [facility] Comment on above: Performed By: #### M G, CMP, CBC #### [address] Performed By: #### M G, SCAN CBC, CMP #### [address] NRBC% 0.1 /100{WBC} Normal 0-0.5 [facility] Comment on above: Performed By: #### M G, CMP, CBC #### [address] Performed By: #### M G, SCAN CBC, CMP #### [address] Platelet mean volume (Bld) [Entitic vol] 7.9 fL Normal 6.6-10.[address] [facility] Comment on above: Performed By: #### M G, CMP, CBC #### [address] Performed By: #### M G, SCAN CBC, CMP #### [address] Platelets (Bld) [#/Vol] 179 10*3/uL Normal 150-450 [facility] Comment on above: Performed By: #### M G, CMP, CBC #### [address] Performed By: #### M G, SCAN CBC, CMP #### [address] RBC (Bld) [#/Vol] 3.91 10*6/uL Normal 3.90-5.60 [facility] Comment on above: Performed By: #### M G, CMP, CBC #### [address] Performed By: #### M G, SCAN CBC, CMP #### [address] WBC (Bld) [#/Vol] 11.0 10*3/uL High 4.1-10.5 [facility] Comment on above: Performed By: #### M G, CMP, CBC #### [facility] [address] [place] [address] Performed By: #### M G, SCAN CBC, CMP #### [facility] [address] [place] [address] Comprehensive Metabolic Pane obdulio 07-19-2024 Albumin [Mass/Vol] 3.8 g/dL Normal 3.5-5.7 [facility] Comment on above: Performed By: #### M G, CMP, CBC #### [facility] [address] [place] [address] Performed By: #### U A #### [facility] [address] [place] [address] Albumin/Globulin [Mass ratio] 1.5 {ratio} Normal [facility] Comment on above: Performed By: #### M G, CMP, CBC #### [facility] [address] [place] [address] Performed By: #### U A #### [address] ALP [Catalytic activity/Vol] 84 U/L Normal 34-104 [facility] Comment on above: Performed By: #### M G, CMP, CBC #### [facility] [address] [place] [address] Performed By: #### U A #### [facility] [address] [place] [address] ALT [Catalytic activity/Vol] 12 U/L Normal 7-52 [facility] Comment on above: Performed By: #### M G, CMP, CBC #### [facility] [address] [place] [address] Performed By: #### U A #### [facility] [address] [place] [address] Anion gap [Moles/Vol] 10.1 mmol/L Normal 6.0-15.0 [facility] Comment on above: Performed By: #### M G, CMP, CBC #### [facility] [address] [place] [address] Performed By: #### U A #### [address] AST [Catalytic activity/Vol] 11 U/L Low 13-39 [facility] Comment on above: Performed By: #### M G, CMP, CBC #### [address] Performed By: #### U A #### [address] Bilirubin [Mass/Vol] 0.6 mg/dL Normal 0.3-1.0 [facility] Comment on above: Performed By: #### M G, CMP, CBC #### [address] Performed By: #### U A #### [address] Calcium [Mass/Vol] 9.2 mg/dL Normal 8.6-10.3 [facility] Comment on above: Performed By: #### M G, CMP, CBC #### [facility] [address] [place] [address] Performed By: #### U A #### [address] Chloride [Moles/Vol] 107 mmol/L Normal 98-107 [facility] Comment on above: Performed By: #### M G, CMP, CBC #### [facility] [address] [place] [address] Performed By: #### U A #### [facility] [address] [place] [address] CO2 [Moles/Vol] 25.1 mmol/L Normal 21.0-31.0 The [facility] Comment on above: Performed By: #### M G, CMP, CBC #### [facility] [address] [place] [address] Performed By: #### U A #### [facility] [address] [place] [address] Creatinine [Mass/Vol] 0.95 mg/dL Normal 0.70-1.30 [facility] Comment on above: Performed By: #### M Avinash, CMP, CBC #### [address] Performed By: #### U A #### [address] Creatinine Clr Calc Pharmacy 56.56 Normal [facility] Comment on above: Performed By: #### M G, CMP, CBC #### [address] Performed By: #### U A #### [address] GFR/1.73 sq M.predicted MDRD (S/P/Bld) [Vol rate/Area] mL/min/{1.73_m2} Normal [facility] Comment on above: Performed By: #### M Avinash, CMP, CBC #### [address] Performed By: #### U A #### [address] Globulin (S) [Mass/Vol] 2.6 g/dL Normal [facility] Comment on above: Performed By: #### M Avinash, CMP, CBC #### [address] Performed By: #### U A #### [address] Glucose [Mass/Vol] 115 mg/dL High 70-100 [facility] Comment on above: Result Comment: [place] Glucose Reference Range is dependent on time and content of last meal. Glucose of more than 200 mg/dL in a nonstressed, ambulatory subject supports the diagnosis of Diabetes Mellitus. ADA recommended reference range Performed By: #### M G, CMP, CBC #### [address] Performed By: #### U A #### [address] [place] [address] [place] Potassium [Moles/Vol] 4.2 mmol/L Normal 3.5-5.1 [facility] Comment on above: Performed By: #### M G, CMP, CBC #### [address] Performed By: #### U A #### [address] Protein [Mass/Vol] 6.4 g/dL Normal 6.4-8.9 [facility] Comment on above: Performed By: #### M G, CMP, CBC #### [address] Performed By: #### U A #### [address] Sodium [Moles/Vol] 138 mmol/L Normal 136-145 [facility] Comment on above: Performed By: #### M G, CMP, CBC #### [address] Performed By: #### U A #### [address] Urea nitrogen [Mass/Vol] 30 mg/dL High 7-25 [facility] Comment on above: Performed By: #### M G, CMP, CBC #### [address] Performed By: #### U A #### [address] Magnesiumon 07-19-2024 Magnesium [Mass/Vol] 1.8 mg/dL Low 1.9-2.7 [facility] Comment on above: Result Comment: PERF ORMED BY: [place] [address] PATHOLOGIST PROOF CARRIER HEBER SHANNON M.D. Performed By: #### M G, CMP, CBC #### [address] Performed By: #### U A #### [facility] [address] Magnesium [Mass/volume] in S stephanie or PlasmaOrdered By: Talib Faustin on 07-19-2024 Magnesium [Mass/Vol] Magnesium [Mass/vol ume] in Serum or Plasma Low 1.9-2.7 [facility] Office Visiton 07-19-2024 Follow-up visit [id number] Y[address]za [address] P 1940 M Date Provider Department Center 07/19/2024 BOY SON CARD [facility] Family History Problem Relation Age of Onset Coronary artery disease Mother Kidney disease Mother Heart failure Mother Family Status - Relation Status Age at Mother Level of Service:34937 RI POSTOP FOLLOW UP VISIT RELATED TO ORIGINAL PX Normal [facility] GLUCOSE POCT GLUCOMETERSon 0 07-17-2024 COMMEMT1 Glu2: Cleaned Meter [facility] Glucose [Mass/Vol] 107 mg/dL [facility] Comment on above: Random Glucose Refer ence Range is dependent on time and content of last meal. Glucose of more than 200 mg/dL in a nonstressed, ambulatory subject supports the diagnosis of Diabetes Mellitus. [facility] Glucose Glucometer (BldC) [M ass/Vol]Ordered By: Matteo Melo on 07-17-2024 Glucose [Mass/Vol] Capillary blood gluc ose measurement by glucometer (mass/volume) [facility] Comment on above: Random Glucose Refer ence Range is dependent on time and content of last meal. Glucose of more than 200 mg/dL in a nonstressed, ambulatory subject supports the diagnosis of Diabetes Mellitus. Glucose Poct Glucometerson 0 07-17-2024 Commemt1 Glu2: Cleaned Meter Normal [facility] Comment on above: Result Comment: PERF ORMED BY: [facility] [address] [place] [address] PATHOLOGIST PROOF CARRIER HEBER SHANNON M.D. Performed By: #### G LULS #### Point of Care testing , Performed By: #### E SR #### [facility] [address] Glucose [Mass/Vol] 107 mg/dL Normal [facility] Comment on above: Result Comment: [facility] Glucose Reference Range is dependent on time and content of last meal. Glucose of more than 200 mg/dL in a nonstressed, ambulatory subject supports the diagnosis of Diabetes Mellitus. Performed By: #### G RAMIRO #### Point of Care testing , Performed By: #### E SR #### [address] No Panel InformationOrdered By: Matteo Melo on 07-17-2024 Bedside Glucose Comment Glu2: cleaned meter [facility] X-ray reportOrdered By: Bruno Urias on 07-17-2024 Study report [facility] [place] [address] XRay Report Signed Patient: Jeremie Bennett MR#: [id number] : 1940 Acct:[id number] Age/Sex: 83 / M ADM Date: 5 Loc: IN Room: Type: [facility] Attending Dr: Matteo Melo MD Copies [...] Urias Jr., D.O.07/17/2024 2:07 PM Dictation Location: [place] [address] Transcribed By: PERLA 07/17/24 140 Dictated By: Mario Urias Jr, DO 07/17/24 1407 Signed By: 07/17/24 1407 [facility] XR chest 1V portableon 07-17 XR chest 1V portable [facility] Main [place] [id number] XRay Report Signed Patient: Jeremie Bennett MR#: [id number] : 1940 Acct:[id number] Age/Sex: 83 / M ADM Date: 07/17/24 Loc: IN Room: Type: [facility] Attending Dr: Matteo Melo MD Copies [...] Rick Shipley Jr..OAidan07/17/2024 2:07 PM Dictation Location: [facility]- Transcribed By: [facility] 07/17/24 1407 Dictated By: Mario Urias Jr, DO 07/17/24 1407 Signed By: 07/17/24 1407 Normal [facility] XR chest 1V portable [facility] Main [address] [address] XRay Report Signed Patient: Jeremie Bennett MR#: [id number] : 1940 Acct:[id number] Age/Sex: 83 / M ADM Date: 07/17/24 Loc: IN Room: Type: [facility] Attending Dr: Matteo Melo MD [...] Urias Jr. D.OAidan07/17/2024 2:07 PM Dictation Location: [place] [address] Transcribed By: PERLA 07/17/24 140 Dictated By: Mario Urias Jr, DO 07/17/241406 Signed By: 07/17/24 140 Normal [facility] Alanine aminotransferase [En zymatic activity/volume] in Serum or PlasmaOrdered By: Talib Faustin on 07-12-2024 ALT [Catalytic activity/Vol] Alanine aminotransferase [Enzymatic activity/volume] in Serum or Plasma 7-52 [facility] Albumin [Mass/volume] in Ser um or Plasma by Bromocresol green (BCG) dye binding methoOrdered By: Talib Faustin on 07-12-2024 Albumin BCG dye [Mass/Vol] Albumin [Mass/volume] in Serum or Plasma by Bromocresol green (BCG) dye binding metho 3.5-5.7 [facility] Alkaline phosphatase [Enzyma tic activity/volume] in Serum or PlasmaOrdered By: Talib Faustin on 07-12-2024 ALP [Catalytic activity/Vol] Alkaline phosphatase [Enzymatic activity/volume] in Serum or Plasma 34-104 [facility] Aspartate aminotransferase [ Enzymatic activity/volume] in Serum or PlasmaOrdered By: Talib Faustin on 07-12-2024 AST [Catalytic activity/Vol] Aspartate aminotransferase [Enzymatic activity/volume] in Serum or Plasma Low 13-39 [facility] Basophils Auto (Bld) [#/Vol] Ordered By: Talib Faustin on 07-12-2024 Basophils (Bld) [#/Vol] Automated basophil count 0.0-0.2 [facility] Basophils/100 WBC Auto (Bld) Ordered By: Talib Faustin on 07-12-2024 Basophils/100 WBC (Bld) Automated basophil % . [facility] Bilirubin.total [Mass/volume ] in Serum or PlasmaOrdered By: Talib Faustin on 07-12-2024 Bilirubin [Mass/Vol] Bilirubin.total [Mass/volume] in Serum or Plasma 0.3-1.0 [facility] Calcium [Mass/volume] in Ser um or PlasmaOrdered By: Talib Clementswi on 07-12-2024 Calcium [Mass/Vol] Calcium [Mass/volume ] in Serum or Plasma 8.6-10.3 [facility] Carbon dioxide, total [Moles /volume] in Serum or PlasmaOrdered By: rick KyRosemary Hargrove on 07-12-2024 CO2 [Moles/Vol] Carbon dioxide, tota l [Moles/volume] in Serum or Plasma 21.0-31.0 [facility] Chloride [Moles/volume] in S stephanie or PlasmaOrdered By: [facility] on 07-12-2024 Chloride [Moles/Vol] Chloride [Moles/vol ume] in Serum or Plasma 98-107 [facility] Complete Blood Count Auto Di ffon 07-12-2024 Basophils (Bld) [#/Vol] 0.0 10*3/uL Normal 0.0-0.2 [facility] Comment on above: Result Comment: PERF ORMED BY: [place] [address] PATHOLOGIST PROOF CARRIER HEBER SHANNON M.D. Performed By: #### C BC, CMP, MG #### [address] Performed By: #### U A #### [address] Basophils/100 WBC (Bld) 0.3 % Normal . [facility] Comment on above: Performed By: #### C BC, CMP, MG #### [address] Performed By: #### U A #### [address] Eosinophils (Bld) [#/Vol] 0.2 10*3/uL Normal 0.0-0.45 [facility] Comment on above: Performed By: #### C BC, CMP, MG #### [address] Performed By: #### U A #### [address] Eosinophils/100 WBC (Bld) 1.7 % Normal . [facility] Comment on above: Performed By: #### C BC, CMP, MG #### [address] Performed By: #### U A #### [address] Erythrocyte distribution width (RBC) [Ratio] 13.7 % Normal 12.0-14.8 [facility] Comment on above: Performed By: #### C BC, CMP, MG #### [address] Performed By: #### U A #### [address] Hematocrit (Bld) [Volume fraction] 38.0 % Low 38.8-50.0 [facility] Comment on above: Performed By: #### C BC, CMP, MG #### [address] Performed By: #### U A #### [address] Hemoglobin (Bld) [Mass/Vol] 12.6 g/dL Low 13.0-17.0 [facility] Comment on above: Performed By: #### C BC, CMP, MG #### [address] Performed By: #### U A #### [address] Lymphocytes (Bld) [#/Vol] 2.0 10*3/uL Normal 1.00-4.8 [facility] Comment on above: Performed By: #### C BC, CMP, MG #### [address] Performed By: #### U A #### [address] Lymphocytes/100 WBC (Bld) 19.2 % Normal . [facility] Comment on above: Performed By: #### C BC, CMP, MG #### [address] Performed By: #### U A #### [address] MCH (RBC) [Entitic mass] 30.7 pg Normal 27.5-35.2 [facility] Comment on above: Performed By: #### C BC, CMP, MG #### [address] Performed By: #### U A #### [address] MCV (RBC) [Entitic vol] 92.2 fL Normal 83.5-101 [facility] Comment on above: Performed By: #### C BC, CMP, MG #### [address] Performed By: #### U A #### [address] Mean Corpuscular HGB Conc 33.3 g/dL Normal 32.5-35.6 [facility] Comment on above: Performed By: #### C BC, CMP, MG #### [address] Performed By: #### U A #### [address] Monocytes (Bld) [#/Vol] 0.8 10*3/uL Normal 0.0-0.8 [facility] Comment on above: Performed By: #### C BC, CMP, MG #### [address] Performed By: #### U A #### [address] Monocytes/100 WBC (Bld) 7.5 % Normal . [facility] Comment on above: Performed By: #### C BC, CMP, MG #### [address] [address] [place] Performed By: #### U A #### [address] Neutrophils (Bld) [#/Vol] 7.3 10*3/uL Normal 1.8-7.7 [facility] Comment on above: Performed By: #### C BC, CMP, MG #### [address] Performed By: #### U A #### [address] Neutrophils/100 WBC (Bld) 71.3 % Normal . [facility] Comment on above: Performed By: #### C BC, CMP, MG #### [address] Performed By: #### U A #### [address] NRBC% 0.1 /100{WBC} Normal 0-0.5 [facility] Comment on above: Performed By: #### C BC, CMP, MG #### [address] Performed By: #### U A #### [address] Platelet mean volume (Bld) [Entitic vol] 9.0 fL Normal 6.6-10.[address] [facility] Comment on above: Performed By: #### C BC, CMP, MG #### [address] Performed By: #### U A #### [address] Platelets (Bld) [#/Vol] 197 10*3/uL Normal 150-450 [facility] Comment on above: Performed By: #### C BC, CMP, MG #### [address] Performed By: #### U A #### [place] [address] [place] RBC (Bld) [#/Vol] 4.12 10*6/uL Normal 3.90-5.60 [facility] Comment on above: Performed By: #### C BC, CMP, MG #### [address] Performed By: #### U A #### [address] WBC (Bld) [#/Vol] 10.2 10*3/uL Normal 4.1-10.5 [facility] Comment on above: Performed By: #### C BC, CMP, MG #### [address] Performed By: #### U A #### [address] Comprehensive Metabolic Pane obdulio 07-12-2024 Albumin [Mass/Vol] 3.9 g/dL Normal 3.5-5.7 [facility] Comment on above: Performed By: #### C BC, BMP #### [address] Performed By: #### U A #### [address] Albumin/Globulin [Mass ratio] 1.6 {ratio} Normal [facility] Comment on above: Performed By: #### C BC, BMP #### [facility] [address] [place] [address] Performed By: #### U A #### [address] ALP [Catalytic activity/Vol] 86 U/L Normal 34-104 [facility] Comment on above: Performed By: #### C BC, BMP #### [address] Performed By: #### U A #### [address] ALT [Catalytic activity/Vol] 15 U/L Normal 7-52 [facility] Comment on above: Performed By: #### C BC, BMP #### [facility] [address] [place] [address] Performed By: #### U A #### [address] Anion gap [Moles/Vol] 12.2 mmol/L Normal 6.0-15.0 [facility] Comment on above: Performed By: #### C BC, BMP #### [facility] [address] [place] [address] Performed By: #### U A #### [address] AST [Catalytic activity/Vol] 11 U/L Low 13-39 [facility] Comment on above: Performed By: #### C BC, BMP #### [address] Performed By: #### U A #### [address] Bilirubin [Mass/Vol] 0.7 mg/dL Normal 0.3-1.0 [facility] Comment on above: Performed By: #### C BC, BMP #### [facility] [address] [place] [address] Performed By: #### U A #### [address] Calcium [Mass/Vol] 9.0 mg/dL Normal 8.6-10.3 [facility] Comment on above: Performed By: #### C BC, BMP #### [facility] [address] [place] [address] Performed By: #### U A #### [facility] [address] [place] [address] Chloride [Moles/Vol] 102 mmol/L Normal 98-107 [facility] Comment on above: Performed By: #### C BC, BMP #### [facility] [address] [place] [address] Performed By: #### U A #### [address] CO2 [Moles/Vol] 27.6 mmol/L Normal 21.0-31.0 The [facility] Comment on above: Performed By: #### C BC, BMP #### [address] Performed By: #### U A #### [address] Creatinine [Mass/Vol] 1.01 mg/dL Normal 0.70-1.30 [facility] Comment on above: Performed By: #### C FREDDY, BMP #### [address] Performed By: #### U A #### [address] Creatinine Clr Calc Pharmacy 53.09 Normal [facility] Comment on above: Performed By: #### C FREDDY BMP #### [address] Performed By: #### U A #### [address] GFR/1.73 sq M.predicted MDRD (S/P/Bld) [Vol rate/Area] mL/min/{1.73_m2} Normal [facility] Comment on above: Performed By: #### C FREDDY BMP #### [address] Performed By: #### U A #### [address] Globulin (S) [Mass/Vol] 2.5 g/dL Normal [facility] Comment on above: Performed By: #### C FREDDY BMP #### [address] Performed By: #### U A #### [address] Glucose [Mass/Vol] 120 mg/dL High 70-100 [facility] Comment on above: Result Comment: [place] om Glucose Reference Range is dependent on time and content of last meal. Glucose of more than 200 mg/dL in a nonstressed, ambulatory subject supports the diagnosis of Diabetes Mellitus. ADA recommended reference range Performed By: #### C BC, BMP #### [address] Performed By: #### U A #### [address] Potassium [Moles/Vol] 4.8 mmol/L Normal 3.5-5.1 [facility] Comment on above: Performed By: #### C BC, BMP #### [address] Performed By: #### U A #### [address] Protein [Mass/Vol] 6.4 g/dL Normal 6.4-8.9 [facility] Comment on above: Performed By: #### C BC, BMP #### [address] Performed By: #### U A #### [address] Sodium [Moles/Vol] 137 mmol/L Normal 136-145 [facility] Comment on above: Performed By: #### C BC, BMP #### [address] Performed By: #### U A #### [address] Urea nitrogen [Mass/Vol] 26 mg/dL High 7-25 [facility] Comment on above: Performed By: #### C BC, BMP #### [address] Performed By: #### U A #### [address] Creatinine [Mass/volume] in Serum or PlasmaOrdered By: Talib Faustin on 07-12-2024 Creatinine [Mass/Vol] Creatinine [Mass/v olume] in Serum or Plasma 0.70-1.30 [facility] Eosinophils Auto (Bld) [#/Vo l]Ordered By: Talib Faustin on 07-12-2024 Eosinophils (Bld) [#/Vol] Automated eosinophil count 0.0-0.45 [facility] Eosinophils/100 WBC Auto (Bl d)Ordered By: rick Faustin on 07-12-2024 Eosinophils/100 WBC (Bld) Automated eosinophil % . [facility] Erythrocyte distribution wid th Auto (RBC) [Ratio]Ordered By: rick Faustin on 07-12-2024 Erythrocyte distribution width (RBC) [Ratio] Erythrocyte distribution width [Ratio] by Automated count 12.0-14.8 [facility] Globulin Calc (S) [Mass/Vol] Ordered By: rick Faustin on 07-12-2024 Globulin (S) [Mass/Vol] Serum globulin measurement by calculation (mass/volume) [facility] Glucose [Mass/volume] in Ser um or PlasmaOrdered By: rick Faustin on 07-12-2024 Glucose [Mass/Vol] Glucose [Mass/volume ] in Serum or Plasma High 70-100 [facility] Comment on above: ADA recommended refe rence rangeRandom Glucose Reference Range is dependent on time and content of last meal. Glucose of more than 200 mg/dL in a nonstressed, ambulatory subject supports the diagnosis of Diabetes Mellitus. Hematocrit Auto (Bld) [Volum e fraction]Ordered By: Talib Faustin on 07-12-2024 Hematocrit (Bld) [Volume fraction] Hematocrit [Volume Fraction] of Blood by Automated count Low 38.8-50.0 [facility] Hemoglobin [Mass/volume] in BloodOrdered By: Talib Faustin on 07-12-2024 Hemoglobin (Bld) [Mass/Vol] Hemoglobin [Mass/volume] in Blood Low 13.0-17.0 [facility] Leukocytes [#/volume] correc suzy for nucleated erythrocytes in Blood by Automated counOrdered By: Talib Faustin on 07-12-2024 WBC corrected for nucl RBC Auto (Bld) [#/Vol] Leukocytes [#/volume] corrected for nucleated erythrocytes in Blood by Automated coun 4.1-10.5 [facility] Lymphocytes Auto (Bld) [#/Vo l]Ordered By: Talib Faustin on 07-12-2024 Lymphocytes (Bld) [#/Vol] Lymphocytes [#/volume] in Blood by Automated count 1.00-4.8 [facility] Lymphocytes/100 WBC Auto (Bl d)Ordered By: Talib Faustin on 07-12-2024 Lymphocytes/100 WBC (Bld) Lymphocytes/100 leukocytes in Blood by Automated count . [facility] MCH Auto (RBC) [Entitic mass ]Ordered By: Talib Faustin on 07-12-2024 MCH (RBC) [Entitic mass] MCH [Entitic mass] by Automated count 27.5-35.2 [facility] MCHC Auto (RBC) [Mass/Vol]Or dered By: Talib Faustin on 07-12-2024 MCHC (RBC) [Mass/Vol] MCHC [Mass/volume] by Automated count 32.5-35.6 [facility] MCV Auto (RBC) [Entitic vol] Ordered By: Talib Faustin on 07-12-2024 MCV (RBC) [Entitic vol] MCV [Entitic volume] by Automated count 83.5-101 [facility] Magnesiumon 07-12-2024 Magnesium [Mass/Vol] 1.9 mg/dL Normal 1.9-2.7 [facility] Comment on above: Result Comment: PERF ORMED BY: [place] [address] PATHOLOGIST PROOF CARRIER HEBER SHANNON M.D. Performed By: #### C BC, BMP #### [facility] [address] [place] [address] Performed By: #### U A #### [facility] [address] [place] [address] Magnesium [Mass/volume] in S stephanie or PlasmaOrdered By: Talib Faustin on 07-12-2024 Magnesium [Mass/Vol] Magnesium [Mass/vol ume] in Serum or Plasma 1.9-2.7 [facility] Monocytes Auto (Bld) [#/Vol] Ordered By: Talib Faustin on 07-12-2024 Monocytes (Bld) [#/Vol] Automated blood monocyte count 0.0-0.8 [facility] Monocytes/100 WBC Auto (Bld) Ordered By: Talib Faustin on 07-12-2024 Monocytes/100 WBC (Bld) Automated monocyte % . [facility] Neutrophils Auto (Bld) [#/Vo l]Ordered By: Talib Faustin on 07-12-2024 Neutrophils (Bld) [#/Vol] Neutrophils [#/volume] in Blood by Automated count 1.8-7.7 [facility] Neutrophils/100 WBC Auto (Bl d)Ordered By: Talib Faustin on 07-12-2024 Neutrophils/100 WBC (Bld) Automated neutrophil % . [facility] No Panel InformationOrdered By: Talib Faustin on 07-12-2024 Estimated GFR (CKD-EPI) > 60.0 mL/Min [facility] Creatinine Clearance (Chem 53.09 [facility] Nucleated erythrocytes [Pres ence] in Blood by Automated countOrdered By: Talib Faustin on 07-12-2024 Nucleated RBC Auto Ql (Bld) Nucleated erythrocytes [Presence] in Blood by Automated count 0-0.5 [facility] Platelet mean volume Auto (B ld) [Entitic vol]Ordered By: Talib Faustin on 07-12-2024 Platelet mean volume (Bld) [Entitic vol] Platelet mean volume [Entitic volume] in Blood by Automated count 6.6-10.1 [facility] Platelets Auto (Bld) [#/Vol] Ordered By: Talib Faustin on 07-12-2024 Platelets (Bld) [#/Vol] Platelets [#/volume] in Blood by Automated count 150-450 [facility] Potassium [Moles/volume] in Serum or PlasmaOrdered By: Talib Faustin on 07-12-2024 Potassium [Moles/Vol] Potassium [Moles/v olume] in Serum or Plasma 3.5-5.1 [facility] Protein [Mass/volume] in Ser um or PlasmaOrdered By: Talib Faustin on 07-12-2024 Protein [Mass/Vol] Protein [Mass/volume ] in Serum or Plasma 6.4-8.9 [facility] RBC Auto (Bld) [#/Vol]Ordere d By: Talib Faustin on 07-12-2024 RBC (Bld) [#/Vol] Erythrocytes [#/volu me] in Blood by Automated count 3.90-5.60 [facility] Serum or plasma albumin/glob ulin mass ratioOrdered By: Talib Faustin on 07-12-2024 Albumin/Globulin [Mass ratio] Serum or plasma albumin/globulin mass ratio [facility] Serum or plasma anion gap de terminationOrdered By: Talib Faustin on 07-12-2024 Anion gap [Moles/Vol] Serum or plasma an ion gap determination 6.0-15.0 [facility] Sodium [Moles/volume] in Ser um or PlasmaOrdered By: Talib Faustin on 07-12-2024 Sodium [Moles/Vol] Sodium [Moles/volume ] in Serum or Plasma 136-145 [facility] Urea nitrogen [Mass/volume] in Serum or PlasmaOrdered By: Talib Faustin on 07-12-2024 Urea nitrogen [Mass/Vol] Urea nitrogen [Mass/volume] in Serum or Plasma High 7-25 [facility] WBC Auto (Bld) [#/Vol]Ordere d By: Talib Faustin on 07-12-2024 WBC (Bld) [#/Vol] Leukocytes [#/volume ] in Blood by Automated count 4.1-10.5 [facility] Bhavin 07-10-2024 ANES ----- ----- Attestation signed [...] Procedure: PPM generator change - dual Location: [facility] / [facility] (Cath) Providers: Stacey Patel MD [...] attending. Additional Equipment Requests Normal [facility] HPon 07-10-2024 ----- ----- Attestation signed [...] an additional personal documentation from me. ----- [place] Electrophysiology Consult Note [place] Cardiology Reason for visit: gen change 07/10/2024 [...] ECG Bradycardia Coronary artery disease Diabetes mellitus ([facility]) Heart valve disease Hyperlipidemia VT (ventricular tachycardia) ([facility]) PSH: Surgical History Past Surgical History: Procedure Laterality Date ABLATION OF DYSRHYTHMIC FOCUS CARDIAC CATHETERIZATION INSERT / REPLACE / REMOVE PACEMAKER SH: Social Determinants of Health Tobacco Use: Medium Risk (05/11/2024) Received from [facility] Patient History Smoking Tobacco Use: Former Smokeless Tobacco Use: Former Passive Exposure: Not on file Alcohol Use: Not on file Financial Resource Strain: Not on file Food Insecurity: Not on file Transportation Needs: Not on file Physical Activity: Not on file Stress: Not on file Social Connections: Not on file Intimate Partner Violence: Unknown (07/08/2023) [place] Safety & Environment Fear of Current or Ex-Partner: Not on file Emotionally Abused: Not on file Physically Abused: Not on file Sexually Abused: Not on file Physically or Sexually Abused: Not on file Depression: Not at risk (04/07/2024) Received from [facility] PHQ-2 Patient Health Questionnaire-2 Score: 0 [...] not included)... Normal [facility] NURSNOTEon 07-10-2024 NURSNOTE RN educated pt [...] off of unit with all of belongings. [facility] NURSNOTE CHG wipes and betadi ne nasal swabs completed. [facility] Orders Onlyon 07-10-2024 Orders Only [id number] [address] 1940 M Date Provider Department Center 07/10/2024 ELIF GONZALEZ [facility] Family History Problem Relation Age of Onset Coronary artery disease Mother Kidney disease Mother Heart failure Mother Family Status - Relation Status Age at Mother [facility] CBC w/ Auto DiffOrdered By: SYSTEM SYSTEM on 07-03-2024 Band form neutrophils/100 WBC (Bld) 8.0 % High 0.0-6.0 [facility] Comment on above: Performed By: #### 2 [id number] #### [facility] [address] [place] [address] Basophils (Bld) [#/Vol] 0.0 E9/L Normal 0.0-0.2 [facility] Comment on above: Performed By: #### 2 [id number] #### [facility] [address] [place] [address] Eosinophils (Bld) [#/Vol] 0.0 E9/L Normal 0.0-0.5 [facility] Comment on above: Performed By: #### 2 [id number] #### [facility] [address] [place] [address] Eosinophils/100 WBC (Bld) 0.0 % Normal 0.0-8.0 [facility] Comment on above: Performed By: #### 2 [id number] #### [place] [facility] [address] [place] [address] Erythrocyte distribution width (RBC) [Ratio] 13.9 % Normal 10.9-14.2 [facility] Comment on above: Performed By: #### 2 [id number] #### [facility] [address] [place] [address] Hematocrit (Bld) [Volume fraction] 39.7 % Normal 37.7-49.0 [facility] Comment on above: Performed By: #### 2 [id number] #### [facility] [address] [place] [id number] Hemoglobin (Bld) [Mass/Vol] 13.3 g/dL Low 13.5-17.5 [facility] Comment on above: Performed By: #### 2 [id number] #### [place] [facility] [address] [place] [id number] Lymphocytes (Bld) [#/Vol] 2.2 E9/L Normal 1.0-4.0 [facility] Comment on above: Performed By: #### 2 [id number] #### [place] [facility] [address] [place] [address] Lymphocytes/100 WBC (Bld) 20.0 % Normal 14.0-50.0 [facility] Comment on above: Performed By: #### 2 [id number] #### [place] [facility] [address] [place] [address] MCH (RBC) [Entitic mass] 31.3 pg Normal 27.0-34.0 [facility] Comment on above: Performed By: #### 2 [id number] #### [place] [facility] [address] [place] [address] MCHC (RBC) [Mass/Vol] 33.4 g/dL Normal 31.4-36.0 [facility] Comment on above: Performed By: #### 2 [id number] #### [place] [facility] [address] [place] [address] MCV (RBC) [Entitic vol] 93.5 fL Normal 80.0-100.0 [facility] Comment on above: Performed By: #### 2 [id number] #### [place] [facility] [address] [place] [address] Monocytes (Bld) [#/Vol] 0.6 E9/L Normal 0.2-1.0 [facility] Comment on above: Performed By: #### 2 [id number] #### [place] [facility] [address] [place] [address] Myelocytes/100 WBC (Bld) 3.0 % High 0.0-0.0 [facility] Comment on above: Performed By: #### 2 [id number] #### [place] [facility] [facility] [address] [place] [address] Neutrophils (Bld) [#/Vol] 7.4 E9/L Invalid Interpretation Code Remisol Heme Comment on above: Performed By: #### 2 [id number] #### [place] [facility] [address] [place] [address] Platelet 271.0 E9/L Normal 150.0-500. 0 Remisol Heme Comment on above: Performed By: #### 2 [id number] #### [place] [facility] [address] [place] [address] Platelet mean volume (Bld) [Entitic vol] 9.2 fL Normal 6.4-10.8 Remisol Heme Comment on above: Performed By: #### 2 [id number] #### [place] [facility] [address] [place] [address] RBC (Bld) [#/Vol] 4.2 E12/L Low 4.3-5.9 Remisol Heme Comment on above: Performed By: #### 2 [id number] #### [place] [facility] [address] [place] [address] Segmented neutrophils/100 WBC (Bld) 62.0 % Normal 36.0-75.0 Remisol Heme Comment on above: Performed By: #### 2 [id number] #### [facility] [address] [place] [address] Variant lymphocytes/100 WBC (Bld) 1.0 % High 0.0-0.0 Remisol Heme Comment on above: Performed By: #### 2 [id number] #### [facility] [address] [place] [address] WBC corrected for nucl RBC Auto (Bld) [#/Vol] 10.5 E9/L Normal 4.0-11.0 Remisol H rip Comment on above: Performed By: #### 2 [id number] #### [facility] [address] [place] [address] CBC w/ Auto Diffon 5 RBC size Nom (Bld) NORMAL Invalid Interpretation Code [facility] Comment on above: Performed By: #### 2 [id number] #### [facility] [address] [place] [address] CHEMISTRYOrdered By: SYSTEM SYSTEM on 07-03-2024 Albumin/Globulin [...] Comment on above: Performed By: #### 2 [id number] #### [facility] [address] [place] [address] Anion gap [Moles/Vol] 10 mmol/L Normal 6-16 Rem isol Chem Comment on above: Performed By: #### 2 [id number] #### [facility] [address] [place] [address] Bilirubin [Mass/Vol] 0.3 mg/dL Normal 0.0-1.1 Chris janee Chem Comment on above: Performed By: #### 2 [id number] #### [place] [facility] [address] [place] [address] Calcium [Mass/Vol] 9.1 mg/dL Normal 8.9-11.1 Remiso l Chem Comment on above: Performed By: #### 2 [id number] #### [place] [facility] [address] [place] [address] Chloride [Moles/Vol] 107 mmol/L Normal 101-111 Chris jaene Chem Comment on above: Performed By: #### 2 [id number] #### [place] [facility] [address] [place] [address] CO2 [Moles/Vol] 28 mmol/L Normal 21-31 Remisol C hem Comment on above: Performed By: #### 2 [id number] #### [place] [facility] [address] [place] [address] Creatinine [Mass/Vol] 1.0 mg/dL Normal 0.5-1.3 Rem isol Chem Comment on above: Performed By: #### 2 [id number] #### [place] [facility] [address] [place] [address] Globulin (S) [Mass/Vol] 2.7 g/dL Normal 1.4-4.0 Remisol Chem Comment on above: Performed By: #### 2 [id number] #### [place] [facility] [address] [place] [address] Glucose [Mass/Vol] 138 mg/dL Normal 55-199 Remiso l Chem Comment on above: Performed By: #### 2 [id number] #### [facility] [address] [place] [address] Potassium [Moles/Vol] 4.5 mmol/L Normal 3.5-5.3 Rem isol Chem Comment on above: Performed By: #### 2 [id number] #### [place] [facility] [address] [place] [address] Protein [Mass/Vol] 6.7 g/dL Normal 6.0-7.8 Remiso l Chem Comment on above: Performed By: #### 2 [id number] #### [facility] [address] [place] [address] Sodium [Moles/Vol] 140 mmol/L Normal 135-145 Remiso l Chem Comment on above: Performed By: #### 2 [id number] #### [facility] [address] [place] [address] Urea nitrogen [Mass/Vol] 20 mg/dL Normal 5-21 Remisol Chem Comment on above: Performed By: #### 2 [id number] #### [facility] [address] [place] [address] CMPon 07-03-2024 Albumin/Globulin (S) [Mass conc ratio] 1.5 Normal 1.1-2.2 [facility] Comment on above: Performed By: #### 2 [id number] #### [facility] [address] [place] [address] ALP [Catalytic activity/Vol] 70 Int._Unit/L Normal 21-98 [facility] Comment on above: Performed By: #### 2 [id number] #### [facility] [address] [place] [address] ALT No additional P-5'-P [Catalytic activity/Vol] 24 Int._Unit/L Normal 6-46 [facility] Comment on above: Performed By: #### 2 [id number] #### [facility] [address] [place] [address] AST [Catalytic activity/Vol] 20 Int._Unit/L Normal 5-43 [facility] Comment on above: Performed By: #### 2 [id number] #### [facility] [address] [place] [address] Urea nitrogen/Creatinine [Mass ratio] 20 No Units Normal 10-20 [facility] Comment on above: Performed By: #### 2 [id number] #### [facility] [address] [place] [address] HEMATOLOGYOrdered By: SYSTEM SYSTEM on 07-03-2024 Basophils/100 WBC (Bld) 0.0 % Normal 0.0 - 2.0 % Remisol Heme Monocytes/100 WBC (Bld) 6.0 % Normal 4.0 - 14.0 % Remisol Heme RBC size Nom (Bld) NORMAL *NA* (07/03/24 12:00 PM) Invalid Interpretation Code Remisol Heme MagnesiumOrdered By: SYSTEM SYSTEM on 07-03-2024 Magnesium [Mass/Vol] 2.0 mg/dL Normal 1.3-2.4 Chris ajnee Chem Comment on above: Performed By: #### 2 [id number] #### [place] [facility] [address] [place] [address] eGFROrdered By: SYSTEM Maintenance AssistantE SocialDefender on 07-03-2024 eGFR 74 mL/min/1.73 m2 Normal >=59 Remisol Chem Comment on above: Performed By: #### 1 [id number] #### [place] [facility] [address] [place] [address] 36on 06-28-[address] Arellano pt w as called to schedule cardiac clearance appt. Pt stated he would rather be seen in [place], so I advised pt to call and schedule with them. Normal [facility] No Panel Informationon 06-23 [employer] Audio indicated a mild to severe sensorineural hearing loss 250-8000 Hz, bilaterally. [facility] Basic Metabolic Panelon Anion gap [Moles/Vol] 8.5 mmol/L Normal 6.0-15.0 [facility] Comment on above: Performed By: #### C BC, BMP #### [facility] [address] [place] [address] [place] Performed By: #### C MP, CBC #### [facility] [address] [place] [address] [place] Calcium [Mass/Vol] 9.0 mg/dL Normal 8.6-10.3 [facility] Comment on above: Result Comment: PERF ORMED BY: [place] [address] PATHOLOGIST PROOF CARRIER HEBER SHANNON M.D. Performed By: #### C BC, BMP #### [address] Performed By: #### C MP, CBC #### [address] Chloride [Moles/Vol] 110 mmol/L High 98-107 [facility] Comment on above: Performed By: #### C BC, BMP #### [address] Performed By: #### C MP, CBC #### [address] CO2 [Moles/Vol] 24.5 mmol/L Normal 21.0-31.0 [facility] Comment on above: Performed By: #### C BC, BMP #### [address] Performed By: #### C MP, CBC #### [address] Creatinine [Mass/Vol] 0.97 mg/dL Normal 0.70-1.30 [facility] Comment on above: Performed By: #### C BC, BMP #### [address] Performed By: #### C MP, CBC #### [address] GFR/1.73 sq M.predicted MDRD (S/P/Bld) [Vol rate/Area] mL/min/{1.73_m2} Normal [facility] Comment on above: Performed By: #### C BC, BMP #### [address] Performed By: #### C MP, CBC #### [address] Glucose [Mass/Vol] 118 mg/dL High 70-100 [facility] Comment on above: Result Comment: [place] Glucose Reference Range is dependent on time and content of last meal. Glucose of more than 200 mg/dL in a nonstressed, ambulatory subject supports the diagnosis of Diabetes Mellitus. ADA recommended reference range Performed By: #### C BC, BMP #### [address] Performed By: #### C MP, CBC #### [address] Potassium [Moles/Vol] 4.0 mmol/L Normal 3.5-5.1 [facility] Comment on above: Performed By: #### C BC, BMP #### [address] Performed By: #### C MP, CBC #### [address] Sodium [Moles/Vol] 139 mmol/L Normal 136-145 [facility] Comment on above: Performed By: #### C BC, BMP #### [address] Performed By: #### C MP, CBC #### [address] Urea nitrogen [Mass/Vol] 19 mg/dL Normal 7-25 [facility] Comment on above: Performed By: #### C BC, BMP #### [address] Performed By: #### C MP, CBC #### [address] Basic metabolic 1998 panelon 06-22-2024 Anion gap [Moles/Vol] 8.5 mmol/L 6.0 - 15.0 meq/L [facility] Calcium [Mass/Vol] 9 mg/dL 8.6 - 10. 3 mg/dL [facility] Chloride [Moles/Vol] 110 mmol/L High 98 - 10 7 mmol/L [facility] CO2 [Moles/Vol] 24.5 mmol/L 21.0 - 31.0 mmol/L [facility] Creatinine (U) [Mass/Vol] 0.97 mg/dL 0.70 - 1.30 mg/dL [facility] ESTIMATED GFR mL/Min [facility] Glucose [Mass/Vol] 118 mg/dL High 70 - 100 mg/dL [facility] Comment on above: Random Glucose Refer ence Range is dependent on time and content of last meal. Glucose of more than 200 mg/dL in a nonstressed, ambulatory subject supports the diagnosis of Diabetes Mellitus. ADA recommended reference range Interpretation and review of laboratory results Abnormal [facility] Potassium [Moles/Vol] 4 mmol/L 3.5 - 5.1 mmol/L [facility] Sodium [Moles/Vol] 139 mmol/L 136 - 145 mmol/L [facility] Urea nitrogen [Mass/Vol] 19 mg/dL 7 - 25 mg/dL [facility] Basophils Auto (Bld) [#/Vol] Ordered By: Matteo Melo on 06-22-2024 Basophils (Bld) [#/Vol] Automated basophil count 0.0-0.2 [facility] Basophils/100 WBC Auto (Bld) Ordered By: Matteo Melo on 06-22-2024 Basophils/100 WBC (Bld) Automated basophil % . [facility] CBC W Auto Differential pane l (Bld)on 06-22-2024 Basophils (Bld) [#/Vol] 0.1 10*3/uL 0.0 - 0.2 10*3/uL [facility] Basophils/100 WBC Manual cnt (Syn fld) 0.7 % . [facility] Eosinophils (Bld) [#/Vol] 0.4 10*3/uL 0.0 - 0.45 10*3/uL [facility] Eosinophils/100 WBC Manual cnt (Syn fld) 5 % . [facility] Erythrocyte distribution width (RBC) [Ratio] 13.4 % 12.0 - 14.8 % [facility] Hematocrit (Bld) [Volume fraction] 40.7 % 38.8 - 50.0 % [facility] Hemoglobin (Bld) [Mass/Vol] 13.7 g/dL 13.0 - 17.0 g/dL [facility] Lymphocytes (Bld) [#/Vol] 2.5 10*3/uL 1.00 - 4.8 10*3/uL [facility] Lymphocytes/100 WBC Manual cnt (Syn fld) 30.2 % . [facility] MCH (RBC) [Entitic mass] 31 pg 27.5 - 35.2 pg [facility] MCHC (RBC) [Mass/Vol] 33.7 g/dL 32.5 - 35.6 g/dL [facility] MCV (RBC) [Entitic vol] 92 fL 83.5 - 101 fL [facility] Monocytes (Bld) [#/Vol] 0.7 10*3/uL 0.0 - 0.8 10*3/uL [facility] Monocytes+Macrophages/ 100 WBC Manual cnt (Syn fld) 8.8 % . [facility] Neutrophils (Bld) [#/Vol] 4.6 10*3/uL 1.8 - 7.7 10*3/uL [facility] Neutrophils/100 WBC Manual cnt (Syn fld) 55.3 % . [facility] NRBC 0.2 /100{WBC} 0 - 0.5 /100{WBC} [facility] Platelet mean volume (Bld) [Entitic vol] 8.9 fL 6.6 - 10.1 fL [facility] Platelets (Bld) [#/Vol] 234 10*3/uL 150 - 450 10*3/uL [facility] RBC LM.HPF (Urine sed) [#/Area] 4.43 10*6/uL 3.90 - 5.60 10*6/uL [facility] WBC (Bld) [#/Vol] 8.4 10*3/uL 4.1 - 10.5 10*3/uL [facility] WBC LM.HPF (Urine sed) [#/Area] 8.4 10*3/uL 4.1 - 10.5 10*3/uL [facility] Calcium [Mass/volume] in Ser um or PlasmaOrdered By: Matteo Melo on 06-22-2024 Calcium [Mass/Vol] Calcium [Mass/volume ] in Serum or Plasma 8.6-10.3 [facility] Carbon dioxide, total [Moles /volume] in Serum or PlasmaOrdered By: Matteo Melo on 06-22-2024 CO2 [Moles/Vol] Carbon dioxide, tota l [Moles/volume] in Serum or Plasma 21.0-31.0 [facility] Chloride [Moles/volume] in S stephanie or PlasmaOrdered By: Matteo Melo on 06-22-2024 Chloride [Moles/Vol] Chloride [Moles/vol ume] in Serum or Plasma High 98-107 [facility] Complete Blood Count Auto Di ffon 06-22-2024 Basophils (Bld) [#/Vol] 0.1 10*3/uL Normal 0.0-0.2 [facility] Comment on above: Result Comment: PERF ORMED BY: [place] [address] PATHOLOGIST PROOF CARRIER HEBER SHANNON M.D. Performed By: #### C BC, BMP #### [address] Performed By: #### C MP, CBC #### [address] Basophils/100 WBC (Bld) 0.7 % Normal . [facility] Comment on above: Performed By: #### C BC, BMP #### [address] Performed By: #### C MP, CBC #### [address] Eosinophils (Bld) [#/Vol] 0.4 10*3/uL Normal 0.0-0.45 [facility] Comment on above: Performed By: #### C BC, BMP #### [address] Performed By: #### C MP, CBC #### [address] Eosinophils/100 WBC (Bld) 5.0 % Normal . [facility] Comment on above: Performed By: #### C BC, BMP #### [address] Performed By: #### C MP, CBC #### [address] Erythrocyte distribution width (RBC) [Ratio] 13.4 % Normal 12.0-14.8 [facility] Comment on above: Performed By: #### C BC, BMP #### [address] Performed By: #### C MP, CBC #### [address] Hematocrit (Bld) [Volume fraction] 40.7 % Normal 38.8-50.0 [facility] Comment on above: Performed By: #### C BC, BMP #### [address] Performed By: #### C MP, CBC #### [address] Hemoglobin (Bld) [Mass/Vol] 13.7 g/dL Normal 13.0-17.0 [facility] Comment on above: Performed By: #### C BC, BMP #### [address] Performed By: #### C MP, CBC #### [address] Lymphocytes (Bld) [#/Vol] 2.5 10*3/uL Normal 1.00-4.8 [facility] Comment on above: Performed By: #### C BC, BMP #### [address] Performed By: #### C MP, CBC #### [address] Lymphocytes/100 WBC (Bld) 30.2 % Normal . [facility] Comment on above: Performed By: #### C BC, BMP #### [address] Performed By: #### C MP, CBC #### [address] MCH (RBC) [Entitic mass] 31.0 pg Normal 27.5-35.2 [facility] Comment on above: Performed By: #### C BC, BMP #### [address] Performed By: #### C MP, CBC #### [address] MCV (RBC) [Entitic vol] 92.0 fL Normal 83.5-101 [facility] Comment on above: Performed By: #### C BC, BMP #### [address] Performed By: #### C MP, CBC #### [address] Mean Corpuscular HGB Conc 33.7 g/dL Normal 32.5-35.6 [facility] Comment on above: Performed By: #### C BC, BMP #### [address] Performed By: #### C MP, CBC #### [address] Monocytes (Bld) [#/Vol] 0.7 10*3/uL Normal 0.0-0.8 [facility] Comment on above: Performed By: #### C BC, BMP #### [address] Performed By: #### C MP, CBC #### [address] Monocytes/100 WBC (Bld) 8.8 % Normal . [facility] Comment on above: Performed By: #### C BC, BMP #### [address] Performed By: #### C MP, CBC #### [address] Neutrophils (Bld) [#/Vol] 4.6 10*3/uL Normal 1.8-7.7 [facility] Comment on above: Performed By: #### C BC, BMP #### [address] Performed By: #### C MP, CBC #### [address] Neutrophils/100 WBC (Bld) 55.3 % Normal . [facility] Comment on above: Performed By: #### C BC, BMP #### [address] Performed By: #### C MP, CBC #### [address] NRBC% 0.2 /100{WBC} Normal 0-0.5 [facility] Comment on above: Performed By: #### C BC, BMP #### [address] Performed By: #### C MP, CBC #### [address] Platelet mean volume (Bld) [Entitic vol] 8.9 fL Normal 6.6-10.[address] [facility] Comment on above: Performed By: #### C BC, BMP #### [address] Performed By: #### C MP, CBC #### [address] Platelets (Bld) [#/Vol] 234 10*3/uL Normal 150-450 [facility] Comment on above: Performed By: #### C BC, BMP #### [address] Performed By: #### C MP, CBC #### [address] RBC (Bld) [#/Vol] 4.43 10*6/uL Normal 3.90-5.60 [facility] Comment on above: Performed By: #### C BC, BMP #### [address] Performed By: #### C MP, CBC #### [address] WBC (Bld) [#/Vol] 8.4 10*3/uL Normal 4.1-10.5 [facility] Comment on above: Performed By: #### C BC, BMP #### [facility] [address] [place] [address] Performed By: #### C MP, CBC #### [facility] [address] [place] [address] Creatinine [Mass/volume] in Serum or PlasmaOrdered By: Matteo Melo on 06-22-2024 Creatinine [Mass/Vol] Creatinine [Mass/v olume] in Serum or Plasma 0.70-1.30 [facility] ECG 12 lead ECGon 06-22-2024 ECG 12 lead ECG [facility] [address] Electrocardiograph Report Signed Patient: Jeremie Bennett MR#: [id number] : 1940 Acct:[id number] Age/Sex: 83 / M ADM Date: 06/22/24 Loc: Room: Type: [facility] Attending Dr: Matteo Melo MD Ordering Provider: [...] MD 0 06/23/24 1517 Normal [facility] ECG 12 lead ECG [facility] [place] [address] Electrocardiograph Report Signed Patient: Jeremie Bennett MR#: [id number] : 1940 Acct:[id number] Age/Sex: 83 / M ADM Date: 06/22/24 Loc: PS Room: Type: [facility] Attending Dr: Matteo Melo MD Ordering Provider: [...] MD 0 06/23/24 1517 Normal [facility] Eosinophils Auto (Bld) [#/Vo l]Ordered By: Matteo Melo on 06-22-2024 Eosinophils (Bld) [#/Vol] Automated eosinophil count 0.0-0.45 [facility] Eosinophils/100 WBC Auto (Bl d)Ordered By: Matteo Melo on 06-22-2024 Eosinophils/100 WBC (Bld) Automated eosinophil % . [facility] Erythrocyte distribution wid th Auto (RBC) [Ratio]Ordered By: Matteo Melo on 06-22-2024 Erythrocyte distribution width (RBC) [Ratio] Erythrocyte distribution width [Ratio] by Automated count 12.0-14.8 [facility] Glucose [Mass/volume] in Ser um or PlasmaOrdered By: Matteo Melo on 06-22-2024 Glucose [Mass/Vol] Glucose [Mass/volume ] in Serum or Plasma High 70-100 [facility] Comment on above: ADA recommended refe rence rangeRandom Glucose Reference Range is dependent on time and content of last meal. Glucose of more than 200 mg/dL in a nonstressed, ambulatory subject supports the diagnosis of Diabetes Mellitus. Hematocrit Auto (Bld) [Volum e fraction]Ordered By: Matteo Melo on 06-22-2024 Hematocrit (Bld) [Volume fraction] Hematocrit [Volume Fraction] of Blood by Automated count 38.8-50.0 [facility] Hemoglobin [Mass/volume] in BloodOrdered By: Matteo Melo on 06-22-2024 Hemoglobin (Bld) [Mass/Vol] Hemoglobin [Mass/volume] in Blood 13.0-17.0 [facility] Leukocytes [#/volume] correc suzy for nucleated erythrocytes in Blood by Automated counOrdered By: Matteo Melo on 06-22-2024 WBC corrected for nucl RBC Auto (Bld) [#/Vol] Leukocytes [#/volume] corrected for nucleated erythrocytes in Blood by Automated coun 4.1-10.5 [facility] Lymphocytes Auto (Bld) [#/Vo l]Ordered By: Matteo Melo on 06-22-2024 Lymphocytes (Bld) [#/Vol] Lymphocytes [#/volume] in Blood by Automated count 1.00-4.8 [facility] Lymphocytes/100 WBC Auto (Bl d)Ordered By: Matteo Melo on 06-22-2024 Lymphocytes/100 WBC (Bld) Lymphocytes/100 leukocytes in Blood by Automated count . [facility] MCH Auto (RBC) [Entitic mass ]Ordered By: Matteo Melo on 06-22-2024 MCH (RBC) [Entitic mass] MCH [Entitic mass] by Automated count 27.5-35.2 [facility] MCHC Auto (RBC) [Mass/Vol]Or dered By: Matteo Melo on 06-22-2024 MCHC (RBC) [Mass/Vol] MCHC [Mass/volume] by Automated count 32.5-35.6 [facility] MCV Auto (RBC) [Entitic vol] Ordered By: Matteo Melo on 06-22-2024 MCV (RBC) [Entitic vol] MCV [Entitic volume] by Automated count 83.5-101 [facility] Monocytes Auto (Bld) [#/Vol] Ordered By: Matteo Melo on 06-22-2024 Monocytes (Bld) [#/Vol] Automated blood monocyte count 0.0-0.8 [facility] Monocytes/100 WBC Auto (Bld) Ordered By: Matteo Melo on 06-22-2024 Monocytes/100 WBC (Bld) Automated monocyte % . [facility] Neutrophils Auto (Bld) [#/Vo l]Ordered By: Matteo Melo on 06-22-2024 Neutrophils (Bld) [#/Vol] Neutrophils [#/volume] in Blood by Automated count 1.8-7.7 [facility] Neutrophils/100 WBC Auto (Bl d)Ordered By: Matteo Melo on 06-22-2024 Neutrophils/100 WBC (Bld) Automated neutrophil % . [facility] No Panel InformationOrdered By: Matteo Melo on 06-22-2024 Estimated GFR (CKD-EPI) > 60.0 mL/Min [facility] Creatinine Clearance (Chem N/A [facility] Nucleated erythrocytes [Pres ence] in Blood by Automated countOrdered By: Matteo Melo on 06-22-2024 Nucleated RBC Auto Ql (Bld) Nucleated erythrocytes [Presence] in Blood by Automated count 0-0.5 [facility] Platelet mean volume Auto (B ld) [Entitic vol]Ordered By: Matteo Melo on 06-22-2024 Platelet mean volume (Bld) [Entitic vol] Platelet mean volume [Entitic volume] in Blood by Automated count 6.6-10.1 [facility] Platelets Auto (Bld) [#/Vol] Ordered By: Matteo Melo on 06-22-2024 Platelets (Bld) [#/Vol] Platelets [#/volume] in Blood by Automated count 150-450 [facility] Potassium [Moles/volume] in Serum or PlasmaOrdered By: Matteo Melo on 06-22-2024 Potassium [Moles/Vol] Potassium [Moles/v olume] in Serum or Plasma 3.5-5.1 [facility] RBC Auto (Bld) [#/Vol]Ordere d By: Matteo Melo on 06-22-2024 RBC (Bld) [#/Vol] Erythrocytes [#/volu me] in Blood by Automated count 3.90-5.60 [facility] Serum or plasma anion gap de terminationOrdered By: Matteo Melo on 06-22-2024 Anion gap [Moles/Vol] Serum or plasma an ion gap determination 6.0-15.0 [facility] Sodium [Moles/volume] in Ser um or PlasmaOrdered By: Matteo Melo on 06-22-2024 Sodium [Moles/Vol] Sodium [Moles/volume ] in Serum or Plasma 136-145 [facility] [facility] Urea nitrogen [Mass/volume] in Serum or PlasmaOrdered By: Matteo Melo on 06-22-2024 Urea nitrogen [Mass/Vol] Urea nitrogen [Mass/volume] in Serum or Plasma 7-25 [facility] WBC Auto (Bld) [#/Vol]Ordere d By: Matteo Melo on 06-22-2024 WBC (Bld) [#/Vol] Leukocytes [#/volume ] in Blood by Automated count 4.1-10.5 [facility] Surgical pathology studyon 0 06-05-2024 Surgical pathology study Pathology report.total SEE COMMENT Surgical Pathology Case: [id number] Authorizing Provider: Mary Schneider MD Collected: 06/05/2024 1609 Ordering Location: [facility] Received: 06/05/[address] [place] [address] Pathologist: Alessandro Arzate DDS Specimen: LYMPH NODE BIOPSY Path report.final diagnosis SEE COMMENT Lymph node, core biopsy: - Metastatic non-keratinizing squamous cell carcinoma, see note. 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 P16 by immunohistochemistry: Equivocal. 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 Reference Range (p16): Negative: <50% strong nuclear [...] reviewed in conjunction with pathology resident, Pilo Loay MD. Path report.relevant Hx SCC Path report.gross observation SEE COMMENT Received in formalin, labeled with the patient's name and hospital number and lymph node biopsy , is a cylindrical fragment of wilcox soft tissue measuring 0.8 cm in length by less than 0.1 cm in diameter. The specimen is submitted in toto in one cassette. [facility] AP ASR DISCLAIMER One or more of the reagents used to perform assays on this specimen MAY have contained components considered to be analyte specific reagents (ASR's). ASR's have not been cleared or approved by the U.S. Food and Drug Administration. These assays were developed and their performance characteristics determined by the Department of Pathology at [facility]. The FDA does not require this test [...] and negative controls which stained appropriately. Normal [facility] US GUIDED BIOPSY LYMPH NODE SUPERFICIALon 06-05-2024 US GUIDED BIOPSY LYMPH NODE SUPERFICIAL Interpreted By: Gaby Perez and Guirguis James STUDY: US GUIDED BIOPSY LYMPH NODE SUPERFICIAL; 06/05/2024 1:53 pm INDICATION: Signs/Symptoms:left neck enlarged lymph node seen on PET. COMPARISON: PET-CT dated 03/27/2024 ACCESSION NUMBER(S): [id number] ORDERING CLINICIAN: MARY SCHNEIDER TECHNIQUE: INTERVENTIONALIST(S): MD [...] intravenous fentanyl 50mcg and versed 0.5mg from 6974-9548. The physician was assisted by an independent [...] findings as stated. Performed and dictated at [facility]. MACRO: None. Signed by: Gaby Perez 06/05/2024 9:02 PM Dictation workstation: [id number] [facility] US guidance for percutaneous biopsy of [...] findings as stated. Performed and dictated at [facility]. MACRO: None. Signed by: Gaby Perez 06/05/2024 9:02 PM Dictation workstation: [id number] Interpreted By: Gaby Perez and Guirguis James STUDY: US GUIDED BIOPSY LYMPH NODE SUPERFICIAL; 06/05/2024 1:53 pm INDICATION: Signs/Symptoms:left neck enlarged lymph node seen on PET. COMPARISON: PET-CT dated 03/27/2024 ACCESSION NUMBER(S): [id number] ORDERING CLINICIAN: MARY SCHNEIDER TECHNIQUE: INTERVENTIONALIST(S): MD [...] intravenous fentanyl 50mcg and versed 0.5mg from 1831-8489. The physician was assisted by an independent [...] PET. COMPARISON: PET-CT dated 03/27/2024 ACCESSION NUMBER(S): [id number] ORDERING CLINICIAN: MARY SCHNEIDER TECHNIQUE: INTERVENTIONALIST(S): MD [...] intravenous fentanyl 50mcg and versed 0.5mg from 4420-1571. The physician was assisted by an independent [...] findings as stated. Performed and dictated at [facility]. MACRO: None. Signed by: Gaby Perez 06/05/2024 9:02 PM Dictation workstation: [id number] [facility] Work Phone: Radiology Study observation (narrative) [facility] Work Phone: US guidance for percutaneous biopsy of Lymph nodeOrdered By: Gaby Perez on 06-05-2024 [facility] Work Phone: NM TRANSFER OF OUTSIDE FILMS on 05-15-2024 NM TRANSFER OF OUTSIDE FILMS Outside images for comparison or treatment purposes, not interpreted by Radiologists. Normal [facility] Study Interpretation of outs romina studyon 05-15-2024 Outside images for comparison or treatment purposes, not interpreted by Radiologists. IMAGING Blood type and Indirect anti body screen panel (Bld)on 05-11-2024 ABO group Nom (Bld) A [facility] Blood group antibody screen Ql Negative [facility] D Ag Ql (Bld) Positive [facility] ABO group Nom (Bld) A Normal [facility] Comment on above: Order Comment: Patie nt admitted for surgery associated with significant blood loss OR per blood bank request. Performed By: #### 3 4532-2 #### TING Knox ([id number]) [facility] ([facility]) [address] [place] [address] Blood group antibody screen Ql Negative [facility] Comment on above: Order Comment: Patie nt admitted for surgery associated with significant blood loss OR per blood bank request. Performed By: #### 3 4532-2 #### TING Knox (46358) [facility] ([facility]) [address] [place] [address] D Ag Ql (Bld) Positive [facility] Comment on above: Order Comment: Patie nt admitted for surgery associated with significant blood loss OR per blood bank request. Performed By: #### 3 4532-2 #### TING Knox (11044) [facility] ([facility]) [address] [place] [address] Glucose Test strip manual (B ld) [Mass/Vol]on 05-11-2024 Glucose [Mass/Vol] 128 mg/dL High 74 - 99 mg/dL [facility] Interpretation and review of laboratory results Abnormal [facility] Glucose [Mass/Vol] 128 mg/dL High 74-99 [facility] Comment on above: Performed By: #### 2 341-6 #### TING Knox ([id number]) [facility] ([facility]) [address] [place], [place] [address] Glucose [Mass/Vol] 120 mg/dL High 74 - 99 mg/dL [facility] Comment on above: RN NOTIFIED Interpretation and review of laboratory results Abnormal [facility] Glucose [Mass/Vol] 120 mg/dL High 74-99 [facility] Comment on above: Result Comment: RN N OTIFIED Performed By: #### 2 341-6 #### TING Knox ([id number]) [facility] ([facility]) [address] [place], [place] [address] Surgical pathology studyon 1 07-12-2023 Surgical pathology study Pathology report.total SEE COMMENT Surgical Pathology Case: [id number] Authorizing Provider: Mary Schneider MD Collected: 05/11/2024 0802 Ordering Location: [facility] Received: 05/11/2024 [address] [facility] [place] Pathologist: Asuncion Quintanilla MD PhD Intraop: [...] invasion. Intraoperative Consult Pathologist(s): Carmel Patel MD clinical sales consultant: Dr. Alessandro Arzate. LAB AP ASR DISCLAIMER One or more of the reagents used to perform assays on this specimen MAY have contained components considered to be analyte specific reagents (ASR's). ASR's have not been cleared or approved by the U.S. Food and Drug Administration. These assays were developed and their performance characteristics determined by the Department of Pathology at [facility]. The FDA does not require this test [...] and negative controls which stained appropriately. 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] VERAB/VERIFY ABORHon 024 ABO group Nom (Bld) A Normal [facility] Comment on above: Performed By: #### V ERAB #### TING Knox ([id number]) [facility] ([facility]) [address] [place] [address] D Ag Ql (Bld) Positive Normal [facility] Comment on above: Performed By: #### V ERAB #### TING Knox (53887) [facility] ([facility]) [address] [place] [address] Verify ABO/Rh Group Test (VE RAB)on 05-11-2024 ABO group Nom (Bld) A [facility] D Ag Ql (Bld) Positive [facility] Office Visiton 04-25-2024 Follow-up visit [id number] [address] P 1940 M Date Provider Department Center 04/25/2024 STACEY ERNANDEZ GILA [facility] Family History Problem Relation Age of Onset Coronary artery disease Mother Kidney disease Mother Heart failure Mother Family Status - Relation Status Age at Mother Level of Service:01913 [place] OFFICE/OUTPATIENT NEW MODERATE MDM 45 MINUTES Normal [facility] Ambulatory Visit Summaryon 1 06-18-2023 Ambulatory Visit Summary Ambulatory Visit Summary JEREMIE BENNETT :1940 Visit Date:04/17/2024 Ambulatory Visit Instructions Your Diagnosis Type 2 diabetes mellitus with hypercholesterolemia BMI 30.0-30.9,adult Exogenous obesity Former smoker Chronic GERD Coronary artery disease involving [place] coronary artery of [place] heart without angina pectoris Hypercholesterolemia Primary hypertension [...] Tab) fluticasone nasal (fluticasone Nasal 0.05 mg/inh [place]) furosemide (furosemide 20 mg Tab) irbesartan (irbesartan [...] Appointments Wednesday 2:30 PM EDT With: Where: [address] [address]- Wednesday 3:30 PM EDT With: Hermes CASON, Demetrius Rosa Where: [address] [address]- Medications What How Much When Instructions Unchanged [...] fluticasone nasal (fluticasone Nasal 0.05 mg/ inh [place]) See instructions USE 1 SPRAY IN BOTH [...] By Mouth Every day Unchanged Misc Prescription ([facility]) See instructions one touch ultra [...] currently receivin (more content not included)... Normal [facility] CBC w/ Auto Diffon 4 Basophils/100 WBC (Bld) 0.8 % Normal 0.0-2.0 [facility] Comment on above: Performed By: #### 2 239689 #### [facility] [address] [place] [address] Basophils/Leukocytes Auto (Bld) [Pure # fraction] 0.1 E9/L Normal 0.0-0.2 [facility] Comment on above: Performed By: #### 2 317010 #### [facility] [address] [place] [address] Eosinophils (Bld) [#/Vol] 0.4 E9/L Normal 0.0-0.5 [facility] Comment on above: Performed By: #### 2 945912 #### [facility] [address] [place] [address] Eosinophils/100 WBC (Bld) 4.6 % Normal 0.0-8.0 [facility] Comment on above: Performed By: #### 2 229754 #### [facility] [address] [place] [address] Erythrocyte distribution width (RBC) [Ratio] 14.0 % Normal 10.9-14.2 [facility] Comment on above: Performed By: #### 2 855935 #### [facility] [address] [place] [address] Hematocrit (Bld) [Volume fraction] 43.7 % Normal 37.7-49.0 [facility] Comment on above: Performed By: #### 2 862024 #### [facility] [address] [place] [address] Hemoglobin (Bld) [Mass/Vol] 14.5 g/dL Normal 13.5-17.5 [facility] Comment on above: Performed By: #### 2 900799 #### [facility] [address] [place] [address] Lymphocytes (Bld) [#/Vol] 2.0 E9/L Normal 1.0-4.0 [facility] Comment on above: Performed By: #### 2 203468 #### [facility] [address] [place] [address] Lymphocytes/100 WBC (Bld) 22.4 % Normal 14.0-50.0 [facility] Comment on above: Performed By: #### 2 451070 #### [facility] [address] [place] [address] MCH (RBC) [Entitic mass] 31.2 pg Normal 27.0-34.0 [facility] Comment on above: Performed By: #### 2 758721 #### [facility] [address] [place] [address] MCHC (RBC) [Mass/Vol] 33.2 g/dL Normal 31.4-36.0 [facility] Comment on above: Performed By: #### 2 728406 #### [facility] [address] [place] [address] MCV (RBC) [Entitic vol] 94.2 fL Normal 80.0-100.0 [facility] Comment on above: Performed By: #### 2 344119 #### [facility] [address] [place] [address] Monocytes (Bld) [#/Vol] 0.7 E9/L Normal 0.2-1.0 [facility] Comment on above: Performed By: #### 2 454314 #### [facility] [address] [place] [address] Neutrophils (Bld) [#/Vol] 5.7 E9/L Normal 2.0-7.5 [facility] Comment on above: Performed By: #### 2 816493 #### [facility] [address] [place] [address] Neutrophils/100 WBC (Bld) 64.7 % Normal 36.0-75.0 [facility] Comment on above: Performed By: #### 2 112037 #### [facility] [address] [place] [address] Platelet mean volume (Bld) [Entitic vol] 9.2 fL Normal 6.4-10.8 [facility] Comment on above: Performed By: #### 2 210257 #### [facility] [address] [place] [address] Platelets (Bld) [#/Vol] 243.0 E9/L Normal 150.0-500. 0 [facility] Comment on above: Performed By: #### 2 155788 #### [facility] [address] [place] [address] RBC (Bld) [#/Vol] 4.6 E12/L Normal 4.3-5.9 [facility] Comment on above: Performed By: #### 2 222285 #### [facility] [address] [place] [address] WBC corrected for nucl RBC Auto (Bld) [#/Vol] 8.9 E9/L Normal 4.0-11.0 [facility] Comment on above: Performed By: #### 2 749705 #### [facility] [address] [place] [address] CHEMISTRYOrdered By: SYSTEM SYSTEM on 04-17-2024 Albumin [...] (Bld) [Mass fraction] 6.5 % High <=5.9% [facility] ChemAutoSS CMPon 04-17-2024 Albumin [Mass/Vol] 4.3 g/dL Normal 3.3-5.0 [facility] Comment on above: Performed By: #### 2 693765 #### [facility] [address] [place] [address] Albumin/Globulin (S) [Mass conc ratio] 1.7 Normal 1.1-2.2 [facility] Comment on above: Performed By: #### 2 437841 #### [facility] [address] [place] [address] ALP [Catalytic activity/Vol] 82 Int._Unit/L Normal 21-98 [facility] Comment on above: Performed By: #### 2 396678 #### [facility] [address] [place] [address] ALT No additional P-5'-P [Catalytic activity/Vol] 17 Int._Unit/L Normal 6-46 [facility] Comment on above: Performed By: #### 2 264831 #### [facility] [address] [place] [address] Anion gap [Moles/Vol] 10 mmol/L Normal 6-16 [facility] Comment on above: Performed By: #### 2 223476 #### [facility] [address] [place] [address] AST [Catalytic activity/Vol] 18 Int._Unit/L Normal 5-43 [facility] Comment on above: Performed By: #### 2 577004 #### [facility] [address] [place] [address] Bilirubin [Mass/Vol] 0.6 mg/dL Normal 0.0-1.1 [facility] Comment on above: Performed By: #### 2 099139 #### [facility] [address] [place] [address] Calcium [Mass/Vol] 9.7 mg/dL Normal 8.9-11.1 [facility] Comment on above: Performed By: #### 2 740377 #### [facility] [address] [place] [address] Chloride [Moles/Vol] 108 mmol/L Normal 101-111 [facility] Comment on above: Performed By: #### 2 389758 #### [facility] [address] [place] [address] CO2 [Moles/Vol] 27 mmol/L Normal 21-31 [facility] Comment on above: Performed By: #### 2 677670 #### [facility] [address] [place] [address] Creatinine [Mass/Vol] 1.0 mg/dL Normal 0.5-1.3 [facility] Comment on above: Performed By: #### 2 867022 #### [facility] [address] [place] [address] Globulin (S) [Mass/Vol] 2.5 g/dL Normal 1.4-4.0 [facility] Comment on above: Performed By: #### 2 660729 #### [facility] [address] [place] [address] Glucose [Mass/Vol] 145 mg/dL Normal 55-199 [facility] Comment on above: Performed By: #### 2 069591 #### [facility] [address] [place] [address] Potassium [Moles/Vol] 4.2 mmol/L Normal 3.5-5.3 [facility] Comment on above: Performed By: #### 2 967638 #### [facility] [address] [place] [address] Protein [Mass/Vol] 6.8 g/dL Normal 6.0-7.8 [facility] Comment on above: Performed By: #### 2 773186 #### [facility] [address] [place] [address] Sodium [Moles/Vol] 141 mmol/L Normal 135-145 [facility] Comment on above: Performed By: #### 2 564554 #### [facility] [address] [place] [address] Urea nitrogen [Mass/Vol] 22 mg/dL High 5-21 [facility] Comment on above: Performed By: #### 2 642362 #### [facility] [address] [place] [address] Urea nitrogen/Creatinine [Mass ratio] 22 No Units High 10-20 [facility] Comment on above: Performed By: #### 2 133094 #### [facility] [address] [place] [address] Family Medicine Office/Clini c Noteon 04-17-2024 Family [...] a referral to Dr. Marlene Schneider in [place] for further evaluation. The patient has a [...] or previously received 4274F Lab Specimen Collect 89297 Microalbumin Level Urine Most recent diastolic blood [...] or previously received 4274F Lab Specimen Collect 12005 Microalbumin Level Urine Most recent diastolic blood [...] or previously received 4274F Lab Specimen Collect 13517 Microalbumin Level Urine Most recent diastolic blood pressure <80 mm Hg 3078F Patient screen for fall risk: no falls in last year or 1 fall with no injury in last year 1101F Systolic BP <130 mm Hg (Most Recent) 3074F 4. Former smoker (Z87.891: Personal history of nicotine dependence) Please continue not to smoke. Ordered: influe (more content not included)... Normal [facility] Comment on above: Result Comment: Elec [...] Normal 4.0 - 11.0 E9/L Remisol Heme [id number] 04-17-2024 HbA1c (Bld) [Mass fraction] 6.5 % High <=5.9 [facility] Comment on above: Performed By: #### 7 [id number] #### [facility] [address] [place] [address] U Microalbon 04-17-2024 Albumin DL <= 20 mg/L (U) [Mass/Vol] 0.7 mg/dL Normal 0.0-1.9 [facility] Comment on above: Performed By: #### 1 7318685 #### [facility] [address] [place] [address] eGFRon 04-17-2024 eGFR 74 mL/min/1.73 m2 Normal >=59 [facility] Comment on above: Performed By: #### 1 9168318 #### [place] [facility] [address] [place] [address] Basic metabolic 2000 panelon 04-11-2024 Anion gap [Moles/Vol] 15 mmol/L Normal 10-20 [place] Comment on above: Performed By: #### 2 4321-2 #### TING Knox (15939) [facility] ([facility]) [address] [place] [address] Calcium [Mass/Vol] 9.9 mg/dL Normal 8.6-10.6 [facility] Comment on above: Performed By: #### 2 4321-2 #### TING Knox (84165) [facility] ([facility]) [address] [place] [address] Chloride [Moles/Vol] 107 mmol/L Normal 98-107 [facility] Comment on above: Performed By: #### 2 4321-2 #### TING Knox (35713) [facility] ([facility]) [address] [place] [address] CO2 [Moles/Vol] 25 mmol/L Normal 21-32 [facility] Comment on above: Performed By: #### 2 4321-2 #### TING Knox (90580) [facility] ([facility]) [address] [place] [address] Creatinine [Mass/Vol] 0.96 mg/dL Normal 0.50-1.30 [place] Comment on above: Performed By: #### 2 4321-2 #### TING Knox (70412) [facility] ([facility]) [address] [place] [address] Glomerular filtration rate/1.73 sq M.predicted 78 mL/min/1.73m*2 Normal >60 [facility] Comment on above: Result Comment: Calc ulations of estimated GFR are performed using the 2020 CKD-EPI Study Refit equation without the race variable for the IDMS-Traceable creatinine methods. https://jasn.asnjournals.org/content/early//ASN.06521 24697 Performed By: #### 2 4321-2 #### TING EARLYER L (68138) [facility] ([facility]) [address] [place] [address] Glucose [Mass/Vol] 109 mg/dL High 74-99 [facility] Comment on above: Performed By: #### 2 4321-2 #### TING VIEIRA L (59538) [facility] ([facility]) [address] [place] [address] Potassium [Moles/Vol] 4.5 mmol/L Normal 3.5-5.3 [place] Comment on above: Performed By: #### 2 4321-2 #### TING PARKSTZER L (88846) [facility] ([facility]) [address] [place] [address] Sodium [Moles/Vol] 142 mmol/L Normal 136-145 [facility] Comment on above: Performed By: #### 2 4321-2 #### TING VICENTEMOTZER L (26014) [facility] ([facility]) [address] [place] [address] Urea nitrogen [Mass/Vol] 18 mg/dL Normal 6-23 [facility] Comment on above: Performed By: #### 2 4321-2 #### TING VICENTEMOTZER L (44741) [facility] ([facility]) [address] [place] [address] CBC panel Auto (Bld)on 04-11 Erythrocyte distribution width (RBC) [Ratio] 13.3 % Normal 11.5-14.5 [facility] Comment on above: Performed By: #### 5 8410-2 #### TING Knox (82307) [facility] ([facility]) [address] [place] [address] Hematocrit (Bld) [Volume fraction] 45.5 % Normal 41.0-52.0 [facility] Comment on above: Performed By: #### 5 8410-2 #### TING Knox (26306) [facility] ([facility]) [address] [place] [address] Hemoglobin (Bld) [Mass/Vol] 14.5 g/dL Normal 13.5-17.5 [facility] Comment on above: Performed By: #### 5 8410-2 #### TING Knox (19321) [facility] ([facility]) [address] [place] [address] MCH (RBC) [Entitic mass] 30.1 pg Normal 26.0-34.0 [facility] Comment on above: Performed By: #### 5 8410-2 #### TING Knox (73649) [facility] ([facility]) [address] [place] [address] MCHC (RBC) [Mass/Vol] 31.9 g/dL Low 32.0-36.0 [place] Comment on above: Performed By: #### 5 8410-2 #### TING Knox (98376) [facility] ([facility]) [address] [place] [address] MCV (RBC) [Entitic vol] 94 fL Normal 80-100 [facility] Comment on above: Performed By: #### 5 8410-2 #### TING Knox (75986) [facility] ([facility]) [address] [place] [address] [id number] Nucleated RBC/100 WBC (Bld) [Ratio] 0.0 /100 WBCs Normal 0.0-0.0 [facility] Comment on above: Performed By: #### 5 8410-2 #### TING VIEIRA L ([id number]) [facility] ([facility]) [address] [place] [address] Platelets (Bld) [#/Vol] 254 x10*3/uL Normal 150-450 [facility] Comment on above: Performed By: #### 5 8410-2 #### TING VICENTEMOTZER L ([id number]) [facility] ([facility]) [address] [place] [address] RBC (Bld) [#/Vol] 4.82 x10*6/uL Normal 4.50-5.90 [facility] Comment on above: Performed By: #### 5 8410-2 #### TING VIEIRA L (31362) [facility] ([facility]) [address] [place] [address] WBC (Bld) [#/Vol] 8.5 x10*3/uL Normal 4.4-11.3 [facility] Comment on above: Performed By: #### 5 8410-2 #### TING VIEIRA L ([id number]) [facility] ([facility]) [address] [place] [address] Surgical pathology studyon 1 06-07-2023 Surgical pathology study Pathology report.total SEE COMMENT Surgical Pathology Case: [id number] Authorizing Provider: Mary Schneider MD Collected: 04/07/2024 1137 Ordering Location: [facility] Received: 04/07/2024 1145 Pathologist: Alessandro Arzate DDS [...] PAS is negative for heart fungal organisms. clinical sales consultant: Dr. Jose Leary. Laboratory comment By [...] is submitted in toto in one cassette. [facility] GLUCOSE, BLOOD (POC)on 03-27 Glucose [Mass/Vol] 113 mg/dL Abnormal 74 - 99 mg/dL [facility] Comment on above: Location:[facility], [address] [place] [address] , [place], [place], [facility] The Accu-Chek Inform II glucose meter has [...] Interpretation and review of laboratory results Abnormal [facility] PET/CT SKULL-THIGH INITon 03-27-2024 NM PET/CT [...] * Uptake Time: 61 minutes * Radiopharmaceutical: [id number] (FDG) COMPARISON: No previous FDG PET/CT available [...] of you (more content not included)... Normal [facility] Ambulatory Visit Summaryon 05-23-2023 Ambulatory Visit [...] Tab) fluticasone nasal (fluticasone Nasal 0.05 mg/inh [place]) furosemide (furosemide 20 mg Tab) irbesartan (irbesartan [...] EST With: Hermes CASON, Demetrius Rosa Where: [address] [address]- Wednesday 2:30 PM EDT With: Where: [address] [address]- Medications What How Much When [...] fluticasone nasal (fluticasone Nasal 0.05 mg/ inh [place]) See instructions USE 1 SPRAY IN BOTH [...] (Misc Medication (more content not included)... Normal [facility] Gastroenterology Office/Clin ic Noteon 03-23-2024 Gastroenterology [...] sidebranch IPMN- 04/[address] Aguilar @ [facility] Repeat MRCP 02/2024 2. 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 Normal [facility] Comment on above: Result Comment: Elec tronically Signed By: Beatriz CASON, Inez Funes\.br\Date and Time Signed: 03/23/24 14:49 EST Obdulio 02-29-2024 L Specimen: [id number] Received: 02/29/24 Status: LISA Kirby Num: [id number] Spec Type: Surgical Subm Dr: LUC HAM [...] Account Attending Physician Jeremie Bennett 83/M LABELL [id number] LUC HAM MD SPEC NUM: [id number] RECD: 02/29/24 STATUS: LISA KIRBY NUM: [id number] DONTRELL: 02/29/24- SUBM DR: LUC HAM MD ENTERED: 02/29/24 [facility] DR: Nicolette,Lab SPEC TYPE: Surgical DEPT: MANNY MONTEZ ENTERED BY: [id number] RECV BY: [id number] ORDERED: S 100, Mucicarmine, HE/6, Gross/Micro L4/2, [...] poorly- differentiated squamous cell carcinoma Note: Specimen: [id number] Received: 02/29/24 Status: LISA Kirby Num: [id number] Spec Type: Surgical Subm Dr: LUC HAM MD Tissues: A Lymph Node - Biopsy (Needle or Incisional) (RT CERVICAL LYMPH NODE) B Lymph Node - Biopsy (Needle or Incisional) (RT CERVICAL LYMPH NODE-SALIN) Procedures: S 100, Mucicarmine, HE/6, Gross/Micro L4/2, CK5 6, CK20, CK 7, NAPSIN A, CINtec p16, TTF1, NKX3.1, MOC31, GATA3, p40, DIFF QWIK Patient: Jeremie Bennett [id number] (Continued) Specimen: [id number] Received: 02/29/24 (Continued) Pathological Diagnosis (Continued) Signed (signature on file) Tae Sanchez MD 03/04/24 1033 Specimen: [id number] Received: 02/29/24 Status: LISA Kirby Num: [id number] Spec Type: Surgical Subm Dr: LUC HAM MD Tissues: A Lymph Node - Biopsy (Needle or Incisional) (RT CERVICAL LYMPH NODE) B Lymph Node - Biopsy (Needle or Incisional) (RT CERVICAL LYMPH NODE-SALIN) Procedures: S 100, Mucicarmine, HE/6, Gross/Micro L4/2, CK5 6, CK20, CK 7, NAPSIN A, CINtec p16, TTF1, NKX3.1, MOC31, GATA3, p40, DIFF QWIK Patient: Jeremie Bennett [id number] (Continued) Specimen: [id number] Received: 02/29/24-9314 (Continued) Pathological Diagnosis (Continued) -The tumor cells [...] (more content not included)... Normal [facility] CT SOFT TISSUE NECK [...] Comment: CT S/ T Neck W at [facility]. Please call patient to schedule. Itz 02-02-2024 PRICE Telephone ([facility]) ----- JEREMIE BENNETT ([id number]) 1940 M Date Time Provider Department 02/02/24 VAISHALI PRINGLE [facility] During your visit today, we recorded [...] and it was completed in 12/2023 at [facility]. Our office will request results for Dr. Pringle's review. Follow up will be determined upon Dr. Pringle's review of results. Carlitos Beckman 02/04/2024 9:19 AM Signed Surveillance imaging completed at OSH for IPMN surveillance. Carlitos Beckman 02/07/2024 9:31 AM Signed IPMN surveillance. 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 - omeprazole (PRILOSEC) 40 mg capsule Take [...] Encounter Status:Closed by CARLITOS BECKMAN on 02/18/24 [facility] Ambulatory Visit Summaryon 0 02-01-2024 [...] Tab) fluticasone nasal (fluticasone Nasal 0.05 mg/inh [place]) furosemide (furosemide 20 mg Tab) irbesartan (irbesartan [...] EST With: Beatriz CASON, Inez Funes Where: [facility] [address] [place] [address] [address] [place] [address]- Wednesday 10:00 AM EST With: Hermes CASON, Demetrius Rosa Where: [address] [phone]- Wednesday 2:30 PM EDT With: Where: [address] [address]- Medications What How Much When Why Instructions [...] fluticasone nasal (fluticasone Nasal 0.05 mg/ inh [place]) See instructions USE 1 SPRAY IN BOTH [...] See instructions (more content not included)... Normal [facility] Family Medicine Office/Clini c Noteon 02-01-2024 [...] BID, # 20 cap(s), Refills(s) 0, Pharmacy: [facility] #[id number], 160, cm, 01/10/24 9:43:00 EDT, Height/Length Dosing, 77.8, kg, 01/10/24 9:43:00 EDT, Weight Dosing Follow-up No qualifying data available Problem List/Past Medical History Ongoing BMI 29.0-29.9,adult Cervical lymphadenopathy Cervical spondylosis Chronic GERD Coronary artery disease involving [place] coronary artery of [place] heart without angina pectoris Diabetic autonomic neuropathy [...] PRN, 1 refills fluticasone Nasal 0.05 mg/inh [place], See Instructions furosemide 20 mg Tab, 20 [...] change: No. Household alcohol concerns: No., [facility] (more content not included)... Normal [facility] Comment on above: Result Comment: Elec [...] mg Tab) fluticasone nasal (Flonase 0.05 mg/inh [place]) furosemide (furosemide 20 mg Tab) irbesartan (irbesartan [...] AM EDT With: Demetrius Cooper MD Where: [address] [address]- 2023 2:45 PM EST With: Beatriz CASON, Inez Funes Where: [facility] [address] [place], [place] [address]e [address] [place] [address]- Wednesday 10:00 AM EST With: Demetrius Cooper MD Where: [address] [address]- Wednesday 2:30 PM EDT With: Where: [address] [address]- Medications What How Much When Why Instructions [...] Unchanged fluticasone nasal (Flonase 0.05 mg/ inh [place]) 1 Sprays Nasal Inhalation 2 times a [...] By Mouth Every day Unchanged Misc Prescription ([facility] Pres[facility]) See instructions one touch ultra test strips test sugars once a day Unchanged Misc Prescription ([facility] Prescription) See instructions one touch ultra [...] zonisamide (z (more content not included)... Normal [facility] Family Medicine Office/Clini c Noteon 01-10-2024 [...] BID, # 20 cap(s), Refills(s) 0, Pharmacy: [facility] #[id number], 160, cm, 01/10/24 9:43:00 EDT, Height/Length Dosing, 77.8, kg, 01/10/24 9:43:00 EDT, Weight Dosing Follow-up No qualifying data available Problem List/Past Medical History Ongoing BMI 29.0-29.9,adult Cervical lymphadenopathy Cervical spondylosis Chronic GERD Coronary artery disease involving [place] coronary artery of [place] heart without angina pectoris Diabetic autonomic neuropathy [...] q4hr, PRN, 1 refills Flonase 0.05 mg/inh [place], 1 spray(s), Nasal, BID furosemide 20 mg Tab, 20 mg= 1 tab(s), Oral, Daily irbesartan 300 mg Tab, 300 mg= 1 tab(s), Oral, Daily isosorbide mononitrate, 30 mg, Oral, qAM latanoprost Opth 0.005% Janee loperamide 2 mg (more content not included)... Normal [facility] Comment on above: Result Comment: Elec tronically Signed By: Hermes CASON, Demetrius Branham.marco a\Date and Time Signed: 01/10/24 10:38 EDT Itz 04-05-2023 CNPN Telephone ([id number]) ----- JEREMIE BENNETT ([id number]) 1940 M Date Time Provider Department 04/05/23 VAISHALI PRINGLE [id number] During your visit today, we recorded the following information about you: Lolly Dumont 04/05/2023 9:55 AM Signed Received records from [facility]. Reports for imaging listed below scanned. Images pushed through 09/27/2019 US Right Upper Quad 03/31/2020 CT ABD/PEL 388380 US Right Upper Quad [facility] MRI Abdomen 02/22/2023 US Soft Tissue [...] papillary mucinous neoplasm) [D49.0] Order(s):GI TUMOR BOARD [facility] [APPT42] Order #: [id number]: 1 FUTURE Prescriptions as of 04/06/2023 - isosorbide mononitrate ER (IMDUR) 30 mg 24 hr tablet Take 30 mg by mouth. - clopidogrel (PLAVIX) 75 mg tablet - furosemide (LASIX) 20 mg tablet Take 20 mg by mouth. - fluticasone (FLONASE) 50 mcg/actuation nasal spray 1 [place]. - omeprazole (PRILOSEC) 40 mg capsule Take [...] Encounter Status:Closed by LAMONTE COUCH on 04/06/23 [facility] CNOVon 04-01-2023 CNOV Office Visit ([id number] ) ----- JEREMIE BENNETT ([id number]) 1940 M Date Time Provider Department 04/01/23 1:00 PM VAISHALI PRINGLE [id number] During your visit today, we recorded the [...] GI re (more content not included)... Normal [facility] CHEMISTRYOrdered By: SYSTEM SYSTEM on [...] 67 mL/min/1.73 m2 Normal >=59mL/min /1.73 m2 [facility] Chem S Comment on above: Interpretive Data: [...] (U) [Mass fraction] mg/dL Invalid Interpretation Code [facility] Remisol Creatinine (U) [Mass/Vol] 15.9 mg/dL Invalid Interpretation Code [facility] Chem S U Prot/Creat Ratio [facility] Invalid Interpretation Code 0.00 - 200.00 [facility] Chem S Comment on above: Result Comment: Unab le to calculate due to Protein being less than analyzer reportable range. CBC AUTO DIFFon 09-29-2022 BASO # 0.1 103/ul Normal 0.0-0.1 [facility] Comment on above: Performed By: #### C BC #### [facility] [address] [address] [address] Ramsey Sanchez Basophils/100 WBC (Bld) 0.7 % Normal 0.2-2.0 [facility] Comment on above: Performed By: #### C BC #### [facility] [address] [address] [address] Ramsey Sanchez EO # 0.2 103/ul Normal 0.0-0.7 [facility] Comment on above: Performed By: #### C BC #### [facility] [address] [address] [address] Ramsey Sanchez Eosinophils/100 WBC (Bld) 1.5 % Normal 0.9-7.0 [facility] Comment on above: Performed By: #### C BC #### [facility] [address] [address] [address] Ramsey Sanchez Erythrocyte distribution width (RBC) [Ratio] 13.6 % Normal 11.0-15.0 [facility] Comment on above: Performed By: #### C BC #### [facility] [address] [address] [address] Ramsey Sanchez Hematocrit (Bld) [Volume fraction] 43.5 % Normal 42.0-54.0 [facility] Comment on above: Performed By: #### C BC #### [facility] [address] [address] [address] Ramsey Sanchez Hemoglobin (Bld) [Mass/Vol] 13.9 g/dL Critically low 14.0-18.0 [facility] Comment on above: Performed By: #### C BC #### [facility] [address] [address] [address] Ramsey Sanchez IG # 0.29 10e3/ul Critically high 0.00-0.03 [facility] Comment on above: Performed By: #### C BC #### [facility] [address] [address] [address] Ramsey Sanchez IG % 2.9 % Critically high 0.0-0.5 [facility] Comment on above: Performed By: #### C BC #### [facility] [address] [place] [address] Dr. Ramsey Sanchez LYMPH # 2.1 103/ul Normal 1.2-3.8 [facility] Comment on above: Performed By: #### C BC #### [facility] [address] [place] [address] Dr. Ramsey Sanchez Lymphocytes/100 WBC (Bld) 20.8 % Normal 20.5-60.0 [facility] Comment on above: Performed By: #### C BC #### [facility] [address] [place] [address] Dr. Ramsey Sanchez MANUAL DIFF REQ NO Normal [facility] Comment on above: Performed By: #### C BC #### [facility] [address] [place] [address] Dr. Ramsey Sanchez MCH (RBC) [Entitic mass] 29.6 pg Normal 25.9-34.0 [facility] Comment on above: Performed By: #### C BC #### [facility] [address] [place] [address] Dr. Ramsey Sanchez MCHC (RBC) [Mass/Vol] 32.0 g/dL Normal 29.9-35.2 [facility] Comment on above: Performed By: #### C BC #### [facility] [address] [place] [address] Dr. Ramsey Sanchez MCV (RBC) [Entitic vol] 92.6 fL Normal 80.0-94.0 [facility] Comment on above: Performed By: #### C BC #### [facility] [address] [place] [address] Dr. Ramsey Sanchez MONO # 0.8 103/ul Normal 0.3-0.8 [facility] Comment on above: Performed By: #### C BC #### [facility] [address] [place] [address] Dr. Ramsey Sanchez Monocytes/100 WBC (Bld) 8.3 % Normal 1.7-12.0 [facility] Comment on above: Performed By: #### C BC #### [facility] [address] [place] [address] Dr. Ramsey Sanchez NEUT # 6.5 103/ul Normal 1.4-6.5 [facility] Comment on above: Performed By: #### C BC #### [facility] [address] [place] [address] Dr. Ramsey Sanchez Neutrophils/100 WBC (Bld) 65.8 % Normal 43.0-75.0 [facility] Comment on above: Performed By: #### C BC #### [facility] [address] [place] [address] Dr. Ramsey Sanchez Platelet mean volume (Bld) [Entitic vol] 11.1 fL Normal 9.5-13.5 [facility] Comment on above: Performed By: #### C BC #### [facility] [address] [place] [address] Dr. Ramsey Sanchez PLT 198 103/ul Normal 150-450 [facility] Comment on above: Performed By: #### C BC #### [facility] [address] [place] [address] Dr. Ramsey Sanchez RBC 4.70 106/ul Normal 4.70-6.10 [facility] Comment on above: Performed By: #### C BC #### [facility] [address] [place] [address] Dr. Ramsey Sanchez WBC 9.9 103/ul Normal 4.0-11.0 [facility] Comment on above: Performed By: #### C BC #### [facility] [address] [place], [place] [id number] Dr. Ramsey Sanchez ER URINE PROFILEon 3 Bilirubin Ql (U) Negative Normal NEGATIVE [facility] Comment on above: Performed By: #### E RUR #### [facility] [address] [place] [address] Dr. Ramsey Sanchez Clarity (U) CLEAR Normal CLEAR [facility] Comment on above: Performed By: #### E RUR #### [facility] [address] [place] [address] Dr. Ramsey Sanchez Color (U) YELLOW Normal YELLOW [facility] Comment on above: Performed By: #### E RUR #### [facility] [address] [place] [address] Dr. Ramsey IVORY A micrscopic examina tion will be performed if indicated. Normal [facility] Comment on above: Performed By: #### E RUR #### [facility] [address] [place] [address] Dr. Ramsey Sanchez Glucose Ql (U) Negative Normal NEGATIVE [facility] Comment on above: Performed By: #### E RUR #### [facility] [address] [place] [address] Dr. Ramsey Sanchez Hemoglobin Ql (U) Negative Normal NEGATIVE [facility] Comment on above: Performed By: #### E RUR #### [facility] [address] [place] [address] Dr. Ramsey Sanchez Ketones Ql (U) Negative Normal NEGATIVE [facility] Comment on above: Performed By: #### E RUR #### [facility] [address] [place] [address] Dr. Ramsey Sanchez LEUKOCYTES Negative Normal NEGATIVE [facility] Comment on above: Performed By: #### E RUR #### [facility] [address] [place] [address] Dr. Ramsey Sanchez Nitrite Ql (U) Negative Normal NEGATIVE [facility] Comment on above: Performed By: #### E RUR #### [facility] [address] [place] [address] Dr. Ramsey Sanchez pH (U) 5.5 [pH] Normal 5-9 [facility] Comment on above: Performed By: #### E RUR #### [facility] [address] [place] [address] Dr. Ramsey Sanchez SPEC GRAVITY 1.020 Normal 1.005-<=1. 025 [facility] Comment on above: Performed By: #### E RUR #### [facility] [address] [place] [address] Dr. Ramsey Sanchez UA PROTEIN Negative Normal NEGATIVE/ TRACE [facility] Comment on above: Performed By: #### E RUR #### [facility] [address] [place] [address] Dr. Ramsey Sanchez UR MICRO IND NOT INDICATED Normal [facility] Comment on above: Performed By: #### E RUR #### [facility] [address] [place] [address] Dr. Ramsey Sanchez Urobilinogen Qn (U) 0.2 {Leatha'U}/dL Normal 0.2 - 1. 0 [facility] Comment on above: Performed By: #### E RUR #### [facility] [address] [place] [address] Dr. Ramsey Sanchez LACTATE/LACTIC ACIDon 2022 Lactate [Moles/Vol] 1.7 mmol/L Normal 0.4-2.0 [facility] Comment on above: Performed By: #### L ACT #### [facility] [address] [place] [address] Dr. Ramsey Sanchez PROF 14(COMP METB)on 023 Albumin [Mass/Vol] 3.1 g/dL Critically low 3.4-5.0 [facility] Comment on above: Performed By: #### C CATALINA MCMAHONN #### [facility] [address] [place] [address] Dr. Ramsey Sanchez Albumin/Globulin [Mass ratio] 0.8 {ratio} Normal [facility] Comment on above: Performed By: #### C MIKAELA MCMAHONTROPN #### [facility] [address] [place] [address] Dr. Ramsey Sanchez ALP [Catalytic activity/Vol] 73 U/L Normal 46-116 [facility] Comment on above: Performed By: #### C LISANDRO, HSTROPN #### [facility] [address] [address] [address] Ramsey Sanchez ALT [Catalytic activity/Vol] 22 U/L Normal 16-63 [facility] Comment on above: Performed By: #### C LISANDRO, HSTROPN #### [facility] [address] [address] [address] Ramsey Sanchez Anion gap [Moles/Vol] 13.5 mmol/L Normal [facility] Comment on above: Performed By: #### C LISANDRO, HSTROPN #### [facility] [address] [place] [address] Dr. Ramsey Sanchez AST [Catalytic activity/Vol] 26 U/L Normal 15-37 [facility] Comment on above: Performed By: #### C LISANDRO, HSTROPN #### [facility] [address] [place] [address] Dr. Ramsey Sanchez Bilirubin [Mass/Vol] 0.4 mg/dL Normal 0.2-1.0 [facility] Comment on above: Performed By: #### C LISANDRO, HSTROPN #### [facility] [address] [place] [address] Dr. Ramsey Sanchez Calcium [Mass/Vol] 8.4 mg/dL Critically low 8.5-10.1 [facility] Comment on above: Performed By: #### C LISANDRO, HSTROPN #### [facility] [address] [place] [address] Dr. Ramsey Sanchez Chloride [Moles/Vol] 107 mmol/L Normal 98-107 [facility] Comment on above: Performed By: #### C LISANDRO, HSTROPN #### [facility] [address] [place] [address] Dr. Ramsey Sanchez CO2 [Moles/Vol] 26.1 mmol/L Normal 21.0-32.0 [facility] Comment on above: Performed By: #### C LISANDRO, HSTROPN #### [facility] [address] [address] [address] Ramsey Sanchez Creatinine [Mass/Vol] 0.94 mg/dL Normal 0.70-1.30 [facility] Comment on above: Performed By: #### C MP, HSTROPN #### [facility] [address] [address] [address] Ramsey Sanchez EGFR-AF IRAQI >60 Normal >=60 [facility] Comment on above: Performed By: #### C MP, HSTROPN #### [facility] [address] [address] [address] Ramsey Sanchez EGFR-NON AF IRAQI >60 Normal >=60 [facility] Comment on above: Performed By: #### C MP, HSTROPN #### [facility] [address] [address] [address] Ramsey Sanchez Globulin (S) [Mass/Vol] 3.7 g/dL Normal [facility] Comment on above: Performed By: #### C MP, HSTROPN #### [facility] [address] [address] [address] Ramsey Sanchez Glucose [Mass/Vol] 118 mg/dL Critically high 74-106 [facility] Comment on above: Performed By: #### C MP, HSTROPN #### [facility] [address] [address] [address] Ramsey Sanchez Potassium [Moles/Vol] 3.6 mmol/L Normal 3.5-5.1 [facility] Comment on above: Performed By: #### C MP, HSTROPN #### [facility] [address] [address] [address] Ramsey Sanchez Protein [Mass/Vol] 6.8 g/dL Normal 6.4-8.2 [facility] Comment on above: Performed By: #### C MP, HSTROPN #### [facility] [address] [address] [address] Ramsey Sanchez Sodium [Moles/Vol] 143 mmol/L Normal 136-145 [facility] Comment on above: Performed By: #### C MP, HSTROPN #### [facility] [address] [address] [address] Ramsey Sanchez Urea nitrogen [Mass/Vol] 19.0 mg/dL Critically high 7.0-18.0 [facility] Comment on above: Performed By: #### C MP, HSTROPN #### [facility] [address] [address] [address] Ramsey Sanchez Urea nitrogen/Creatinine [Mass ratio] 20.2 mg/mg Normal [facility] Comment on above: Performed By: #### C LISANDRO, HSTROPN #### [facility] [address] [address] [address] Ramsey Sanchez TROPONIN, HIGH SENSITIVITYon 09-29-2022 HSTROP 9.8 pg/mL Normal 4.0-76.1 [facility] Comment on above: Result Comment: CUT- OFF POINTS HAVE BEEN ESTABLISHED BASED ON THE FOURTH UNIVERSAL DEFINITIONS OF MYOCARDIAL INFARCTION. THE UPPER REFERENCE LIMIT (URL) OF TROPONIN, DEFINED THE 99TH PERCENTILE OF cTnI DISTRIBUTION IN A REFERENCE POPULATION, HAS BEEN CONFIRMED THE DECISION THRESHOLD FOR OK DIAGNOSIS. Performed By: #### C LISANDRO, HSTROPN #### [facility] [address] [place] [address] Dr. Ramsey Sanchez XR CHEST 1 Von [...] hardware and overlying objects out of the [id number]. Electronically authenticated by: ALANNA CARLOS Date: 2022-09-29 16:37 Normal [facility] BNPon 09-25-2022 Natriuretic peptide B (Bld) [Mass/Vol] 720.0 pg/mL Normal <=1,800.0 [facility] Comment on above: Performed By: #### C XSTOOL #### [facility] [address] [place] [address] Dr. Ramsey Sanchez CARDIAC RAFI ADMITon 023 CK [Catalytic activity/Vol] 198 U/L Normal 39-308 [facility] Comment on above: Performed By: #### C XSTOOL #### [facility] [address] [place] [address] Dr. Ramsey Sanchez CK.MB [Mass/Vol] 2.62 ng/mL Normal <=3.60 [facility] Comment on above: Performed By: #### C XSTOOL #### [facility] [address] [place] [address] Dr. Ramsey Sanchez HSTROP 8.8 pg/mL Normal 4.0-76.1 [facility] Comment on above: Result Comment: CUT- OFF POINTS HAVE BEEN ESTABLISHED BASED ON THE FOURTH UNIVERSAL DEFINITIONS OF MYOCARDIAL INFARCTION. THE UPPER REFERENCE LIMIT (URL) OF TROPONIN, DEFINED THE 99TH PERCENTILE OF cTnI DISTRIBUTION IN A REFERENCE POPULATION, HAS BEEN CONFIRMED THE DECISION THRESHOLD FOR OK DIAGNOSIS. Performed By: #### C XSTOOL #### [facility] [address] [place] [address] Dr. Ramsey Sanchez MARILYN 69 ng/mL Normal 16-96 [facility] Comment on above: Performed By: #### C XSTOOL #### [facility] [address] [place] [address] Dr. Ramsey Sanchez CBC AUTO DIFFon 09-25-2022 BASO # 0.0 103/ul Normal 0.0-0.1 [facility] Comment on above: Performed By: #### C BC #### [facility] [address] [place] [address] Dr. Ramsey Sanchez Basophils/100 WBC (Bld) 0.2 % Normal 0.2-2.0 [facility] Comment on above: Performed By: #### C BC #### [facility] [address] [place] [address] Dr. Ramsey Sanchez EO # 0.0 103/ul Normal 0.0-0.7 [facility] Comment on above: Performed By: #### C BC #### [facility] [address] [place] [address] Dr. Ramsey Sanchez Eosinophils/100 WBC (Bld) 0.1 % Critically low 0.9-7.0 [facility] Comment on above: Performed By: #### C BC #### [facility] [address] [place] [address] Dr. Ramsey Sanchez Erythrocyte distribution width (RBC) [Ratio] 14.0 % Normal 11.0-15.0 [facility] Comment on above: Performed By: #### C BC #### [facility] [address] [place] [address] Dr. Ramsey Sanchez Hematocrit (Bld) [Volume fraction] 45.4 % Normal 42.0-54.0 [facility] Comment on above: Performed By: #### C BC #### [facility] [address] [place] [address] Dr. Ramsey Sanchez Hemoglobin (Bld) [Mass/Vol] 14.4 g/dL Normal 14.0-18.0 [facility] Comment on above: Performed By: #### C BC #### [facility] [address] [place] [address] Dr. Ramsey Sanchez IG # 0.08 10e3/ul Critically high 0.00-0.03 [facility] Comment on above: Performed By: #### C BC #### [facility] [address] [place] [address] Dr. Ramsey Sanchez IG % 0.9 % Critically high 0.0-0.5 [facility] Comment on above: Performed By: #### C BC #### [facility] [address] [place] [address] Dr. Ramsey Sanchez LYMPH # 1.6 103/ul Normal 1.2-3.8 [facility] Comment on above: Performed By: #### C BC #### [facility] [address] [place] [address] Dr. Ramsey Sanchez Lymphocytes/100 WBC (Bld) 17.9 % Critically low 20.5-60.0 [facility] Comment on above: Performed By: #### C BC #### [facility] [address] [place] [address] Dr. Ramsey Sanchez MANUAL DIFF REQ NO Normal [facility] Comment on above: Performed By: #### C BC #### [facility] [address] [place] [address] Dr. Ramsey Sanchez MCH (RBC) [Entitic mass] 29.8 pg Normal 25.9-34.0 [facility] Comment on above: Performed By: #### C BC #### [facility] [address] [place] [address] Dr. Ramsey Sanchez MCHC (RBC) [Mass/Vol] 31.7 g/dL Normal 29.9-35.2 [facility] Comment on above: Performed By: #### C BC #### [facility] [address] [place] [address] Dr. Ramsey Sanchez MCV (RBC) [Entitic vol] 94.0 fL Normal 80.0-94.0 [facility] Comment on above: Performed By: #### C BC #### [facility] [address] [place] [address] Dr. Ramsey Sanchez MONO # 0.9 103/ul Critically high 0.3-0.8 [facility] Comment on above: Performed By: #### C BC #### [facility] [address] [place] [address] Dr. Ramsey Sanchez Monocytes/100 WBC (Bld) 9.6 % Normal 1.7-12.0 [facility] Comment on above: Performed By: #### C BC #### [facility] [address] [place] [address] Dr. Ramsey Sanchez NEUT # 6.3 103/ul Normal 1.4-6.5 [facility] Comment on above: Performed By: #### C BC #### [facility] [address] [place] [address] Dr. Ramsey Sanchez Neutrophils/100 WBC (Bld) 71.3 % Normal 43.0-75.0 [facility] Comment on above: Performed By: #### C BC #### [facility] [address] [place] [address] Dr. Ramsey Sanchez Platelet mean volume (Bld) [Entitic vol] 11.0 fL Normal 9.5-13.5 [facility] Comment on above: Performed By: #### C BC #### [facility] [address] [place] [address] Dr. Ramsey Sanchez PLT 203 103/ul Normal 150-450 [facility] Comment on above: Performed By: #### C BC #### [facility] [address] [place] [address] Dr. Rmasey Sanchez RBC 4.83 106/ul Normal 4.70-6.10 [facility] Comment on above: Performed By: #### C BC #### [facility] [address] [place] [address] Dr. Ramsey Sanchez WBC 8.9 103/ul Normal 4.0-11.0 [facility] Comment on above: Performed By: #### C BC #### [facility] [address] [place] [address] Dr. Ramsey Sanchez LACTATE/LACTIC ACIDon 2022 Lactate [Moles/Vol] 1.0 mmol/L Normal 0.4-2.0 [facility] Comment on above: Performed By: #### C BC #### [facility] [address] [place] [address] Dr. Ramsey Sanchez PROF 14(COMP METB)on 023 Albumin [Mass/Vol] 3.7 g/dL Normal 3.4-5.0 [facility] Comment on above: Performed By: #### C XSTOOL #### [facility] [address] [place] [address] Dr. Ramsey Sanchez Albumin/Globulin [Mass ratio] 0.9 {ratio} Normal [facility] Comment on above: Performed By: #### C XSTOOL #### [facility] [address] [place] [address] Dr. Ramsey Sanchez ALP [Catalytic activity/Vol] 68 U/L Normal 46-116 [facility] Comment on above: Performed By: #### C XSTOOL #### [facility] [address] [place] [address] Dr. Ramsey Sanchez ALT [Catalytic activity/Vol] 23 U/L Normal 16-63 [facility] Comment on above: Performed By: #### C XSTOOL #### [facility] [address] [place] [address] Dr. Ramsey Sanchez Anion gap [Moles/Vol] 12.6 mmol/L Normal [facility] Comment on above: Performed By: #### C XSTOOL #### [facility] [address] [place] [address] Dr. Ramsey Sanchez AST [Catalytic activity/Vol] 21 U/L Normal 15-37 [facility] Comment on above: Performed By: #### C XSTOOL #### [facility] [address] [place] [address] Dr. Ramsey Sanchez Bilirubin [Mass/Vol] 0.3 mg/dL Normal 0.2-1.0 [facility] Comment on above: Performed By: #### C XSTOOL #### [facility] [address] [place] [address] Dr. Ramsey Sanchez Calcium [Mass/Vol] 8.8 mg/dL Normal 8.5-10.1 [facility] Comment on above: Performed By: #### C XSTOOL #### [facility] [address] [place] [address] Dr. Ramsey Sanchez Chloride [Moles/Vol] 104 mmol/L Normal 98-107 [facility] Comment on above: Performed By: #### C XSTOOL #### [facility] [address] [place] [address] Dr. Ramsey Sanchez CO2 [Moles/Vol] 26.7 mmol/L Normal 21.0-32.0 [facility] Comment on above: Performed By: #### C XSTOOL #### [facility] [address] [address] [address] Ramsey Sanchez Creatinine [Mass/Vol] 1.27 mg/dL Normal 0.70-1.30 [facility] Comment on above: Performed By: #### C XSTOOL #### [facility] [address] [address] [address] Ramsey Sanchez EGFR-AF IRAQI >60 Normal >=60 [facility] Comment on above: Performed By: #### C XSTOOL #### [facility] [address] [address] [address] Ramsey Sanchez EGFR-NON AF IRAQI 54 mL/min/1.73m2 Critically low >=60 [facility] Comment on above: Performed By: #### C XSTOOL #### [facility] [address] [address] [address] Ramsey Sanchez Globulin (S) [Mass/Vol] 3.9 g/dL Normal [facility] Comment on above: Performed By: #### C XSTOOL #### [facility] [address] [place] [address] Dr. Ramsey Sanchez Glucose [Mass/Vol] 114 mg/dL Critically high 74-106 [facility] Comment on above: Performed By: #### C XSTOOL #### [facility] [address] [address] [address] Ramsey Sanchez Potassium [Moles/Vol] 4.3 mmol/L Normal 3.5-5.1 [facility] Comment on above: Performed By: #### C XSTOOL #### [facility] [address] [address] [address] Ramsey Sanchez Protein [Mass/Vol] 7.6 g/dL Normal 6.4-8.2 [facility] Comment on above: Performed By: #### C XSTOOL #### [facility] [address] [place] [address] Dr. Ramsey Sanchez Sodium [Moles/Vol] 139 mmol/L Normal 136-145 [facility] Comment on above: Performed By: #### C XSTOOL #### [facility] [address] [address] [address] Ramsey Sanchez Urea nitrogen [Mass/Vol] 19.0 mg/dL Critically high 7.0-18.0 [facility] Comment on above: Performed By: #### C XSTOOL #### [facility] [address] [address] [address] Ramsey Sanchez Urea nitrogen/Creatinine [Mass ratio] 15.0 mg/mg Normal [facility] Comment on above: Performed By: #### C XSTOOL #### [facility] [address] [address] [address] Ramsey Sanchez XR CHEST 1 Von [...] by: TRACY HIGHTOWER Date: 2022-09-24 23:29 Normal [facility] COVID + FLU Quick Testingon 09-22-2022 SARS-CoV-2 (COVID-19) RNA MICHELLE+probe Ql (Unsp spec) Positive [facility] Other COVID + FLU Quick Testing Negative [facility] Other POINT OF CARE GLUCOSEon 07-16 Glucose [Mass/Vol] 146 mg/dL Critically high 74-106 [facility] Comment on above: Performed By: #### C XSTOOL #### [facility] [address] [address] [address] Ramsey Sanchez US ARTERY UP EXT [...] ERWIN FALCON Date: 2022-04-16 17:21 Normal [facility] LACTOFERRIN FECAL QUANTon Lactoferrin, Fecal, Quant. 1.43 ug/mL(g) Normal 0.00-7.24 [facility] Comment on above: Result Comment: . [...] (IBS). Performed By: #### C XSTOOL #### [facility] [address] [place] [address] Dr. Ramsey Sanchez CBC AUTO DIFFon 03-10-2022 BASO # 0.1 103/ul Normal 0.0-0.1 [facility] Comment on above: Performed By: #### C BC #### [facility] [address] [place] [address] Dr. Ramsey Sanchez Basophils/100 WBC (Bld) 0.9 % Normal 0.2-2.0 [facility] Comment on above: Performed By: #### C BC #### [facility] [address] [place] [address] Dr. Ramsey Sanchez EO # 0.3 103/ul Normal 0.0-0.7 [facility] Comment on above: Performed By: #### C BC #### [facility] [address] [place] [address] Dr. Ramsey Sanchez Eosinophils/100 WBC (Bld) 2.6 % Normal 0.9-7.0 [facility] Comment on above: Performed By: #### C BC #### [facility] [address] [place] [address] Dr. Ramsey Snachez Erythrocyte distribution width (RBC) [Ratio] 13.2 % Normal 11.0-15.0 [facility] Comment on above: Performed By: #### C BC #### [facility] [address] [place] [address] Dr. Ramsey Sanchez Hematocrit (Bld) [Volume fraction] 46.1 % Normal 42.0-54.0 [facility] Comment on above: Performed By: #### C BC #### [facility] [address] [place] [address] Dr. Ramsey Sanchez Hemoglobin (Bld) [Mass/Vol] 14.5 g/dL Normal 14.0-18.0 [facility] Comment on above: Performed By: #### C BC #### [facility] [address] [place] [address] Dr. Ramsey Sanchez IG # 0.15 10e3/ul Critically high 0.00-0.03 [facility] Comment on above: Performed By: #### C BC #### [facility] [address] [place] [address] Dr. Ramsey Sanchez IG % 1.3 % Critically high 0.0-0.5 [facility] Comment on above: Performed By: #### C BC #### [facility] [address] [place] [address] Dr. Ramsey Sanchez LYMPH # 2.7 103/ul Normal 1.2-3.8 [facility] Comment on above: Performed By: #### C BC #### [facility] [address] [place] [address] Dr. Ramsey Sanchez Lymphocytes/100 WBC (Bld) 23.0 % Normal 20.5-60.0 [facility] Comment on above: Performed By: #### C BC #### [facility] [address] [place] [address] Dr. Ramsey Sanchez MANUAL DIFF REQ NO Normal [facility] Comment on above: Performed By: #### C BC #### [facility] [address] [place] [address] Dr. Ramsey Sanchez MCH (RBC) [Entitic mass] 31.0 pg Normal 25.9-34.0 [facility] Comment on above: Performed By: #### C BC #### [facility] [address] [place] [address] Dr. Ramsey Sanchez MCHC (RBC) [Mass/Vol] 31.5 g/dL Normal 29.9-35.2 [facility] Comment on above: Performed By: #### C BC #### [facility] [address] [place] [address] Dr. Ramsey Sanchez MCV (RBC) [Entitic vol] 98.5 fL Critically high 80.0-94.0 [facility] Comment on above: Performed By: #### C BC #### [facility] [address] [place] [address] Dr. Ramsey Sanchez MONO # 0.9 103/ul Critically high 0.3-0.8 [facility] Comment on above: Performed By: #### C BC #### [facility] [address] [place] [address] Dr. Ramsey Sanchez Monocytes/100 WBC (Bld) 7.4 % Normal 1.7-12.0 [facility] Comment on above: Performed By: #### C BC #### [facility] [address] [place] [address] Dr. Ramsey Sanchez NEUT # 7.6 103/ul Critically high 1.4-6.5 [facility] Comment on above: Performed By: #### C BC #### [facility] [address] [place] [address] Dr. Ramsey Sanchez Neutrophils/100 WBC (Bld) 64.8 % Normal 43.0-75.0 [facility] Comment on above: Performed By: #### C BC #### [facility] [address] [address] [address] Ramsey Sanchez Platelet mean volume (Bld) [Entitic vol] 11.5 fL Normal 9.5-13.5 [facility] Comment on above: Performed By: #### C BC #### [facility] [address] [address] [address] Ramsey Sanchez PLT 243 103/ul Normal 150-450 [facility] Comment on above: Performed By: #### C BC #### [facility] [address] [address] [address] Ramsey Sanchez RBC 4.68 106/ul Critically low 4.70-6.10 [facility] Comment on above: Performed By: #### C BC #### [facility] [address] [address] [address] Ramsey Sanchez WBC 11.7 103/ul Critically high 4.0-11.0 [facility] Comment on above: Performed By: #### C BC #### [facility] [address] [address] [address] Ramsey Sanchez GLYCOHEMOGLOBIN A1Con 2021 ADA RECOMMENDATION SEE BELOW Normal [facility] Comment on above: Result Comment: ADA RECOMMENDED LIMIT 4.0 - 6.0 ADA THERAPEUTIC TARGET < 7.0 ACTION SUGGESTED > 7.0 Performed By: #### A 1C #### [facility] [address] [address] [address] Ramsey Sanchez Glucose [Mass/Vol] 123 mg/dL Normal [facility] Comment on above: Performed By: #### A 1C #### [facility] [address] [address] [address] Ramsey Sanchez HbA1c (Bld) [Mass fraction] 5.9 % Normal 4.5-6.2 [facility] Comment on above: Performed By: #### A 1C #### [facility] [address] [address] [address] Ramsey Sanchez LIPID PROFILEon 03-10-2022 CHOL-HDL RATIO NORM SEE BELOW Normal [facility] Comment on above: Result Comment: 3.3 - 4.4 LOW RISK 4.4 - 7.1 AVERAGE RISK 7.1 - 11.0 MODERATE RISK >11.0 HIGH RISK Performed By: #### C BC #### [facility] [address] [place] [address] Dr. Ramsey Sanchez Cholesterol [Mass/Vol] 121 mg/dL Normal <=[address] [facility] Comment on above: Performed By: #### C BC #### [facility] [address] [address] [address] Ramsey Sanchez Cholesterol in HDL [Mass/Vol] 30 mg/dL Critically low 40-60 [facility] Comment on above: Performed By: #### C BC #### [facility] [address] [place] [address] Dr. Ramsey Sanchez Cholesterol in LDL [Mass/Vol] 47.6 mg/dL Normal [facility] Comment on above: Performed By: #### C BC #### [facility] [address] [place] [address] Dr. Ramsey Sanchez Cholesterol.total/Chol esterol in HDL [Mass ratio] 4.0 {ratio} Normal [facility] Comment on above: Performed By: #### C BC #### [facility] [address] [place] [address] Dr. Ramsey Sanchez HDL NORMAL > or = 60 mg/dl - LO W CARDIOVASCULAR RISK <40 mg/dl - HIGH CARDIOVASCULAR RISK Normal [facility] Comment on above: Performed By: #### C BC #### [facility] [address] [place] [address] Dr. Ramsey Sanchez LDL CALC NORMAL SEE BELOW Normal [facility] Comment on above: Result Comment: <100 mg/dl OPTIMAL 100 - 129 mg/dl NEAR OR ABOVE OPTIMAL 130 - 159 mg/dl BORDERLINE HIGH 160 - 189 mg/dl HIGH >190 mg/dl VERY HIGH Performed By: #### C BC #### [facility] [address] [place] [address] Dr. Ramsey Sanchez Triglyceride [Mass/Vol] 217 mg/dL Critically high <=150 [facility] Comment on above: Performed By: #### C BC #### [facility] [address] [place] [address] Dr. Ramsey Sanchez VLDL CALC 43.4 mg/dL Normal [facility] Comment on above: Performed By: #### C BC #### [facility] [address] [place] [address] Dr. Ramsey Sanchez LIVER PROFILEon 03-10-2022 Albumin [Mass/Vol] 3.9 g/dL Normal 3.4-5.0 [facility] Comment on above: Performed By: #### C BC #### [facility] [address] [place] [address] Dr. Ramsey Sanchez Albumin/Globulin [Mass ratio] 1.1 {ratio} Normal [facility] Comment on above: Performed By: #### C BC #### [facility] [address] [place] [address] Dr. Ramsey Sanchez ALP [Catalytic activity/Vol] 75 U/L Normal 46-116 [facility] Comment on above: Performed By: #### C BC #### [facility] [address] [place] [address] Dr. Ramsey Sanchez ALT [Catalytic activity/Vol] 21 U/L Normal 16-63 [facility] Comment on above: Performed By: #### C BC #### [facility] [address] [place] [address] Dr. Ramsey Sanchez AST [Catalytic activity/Vol] 17 U/L Normal 15-37 [facility] Comment on above: Performed By: #### C BC #### [facility] [address] [place] [address] Dr. Ramsey Sanchez BILI, CONJUGATED 0.1 mg/dL Normal 0.0-0.2 [facility] Comment on above: Performed By: #### C BC #### [facility] [address] [place] [address] Dr. Ramsey Sanchez Bilirubin [Mass/Vol] 0.4 mg/dL Normal 0.2-1.0 [facility] Comment on above: Performed By: #### C BC #### [facility] [address] [place] [address] Dr. Ramsey Sanchez Globulin (S) [Mass/Vol] 3.5 g/dL Normal [facility] Comment on above: Performed By: #### C BC #### [facility] [address] [place] [address] Dr. Ramsey Sanchez Protein [Mass/Vol] 7.4 g/dL Normal 6.4-8.2 [facility] Comment on above: Performed By: #### C BC #### [facility] [address] [place] [address] Dr. Ramsey Sanchez MICROALBUMIN, RAND URon 10- mALB <1.3 Normal <=30.0 [facility] Comment on above: Performed By: #### M ALBR #### [facility] [address] [place] [address] Dr. Ramsey Sanchez PROF CHEM 8 (BAS METB)on Anion gap [Moles/Vol] 12.6 mmol/L Normal [facility] Comment on above: Performed By: #### C BC #### [facility] [address] [place] [address] Dr. Ramsey Sanchez Calcium [Mass/Vol] 8.9 mg/dL Normal 8.5-10.1 [facility] Comment on above: Performed By: #### C BC #### [facility] [address] [place] [address] Dr. Ramsey Sanchez Chloride [Moles/Vol] 103 mmol/L Normal 98-107 [facility] Comment on above: Performed By: #### C BC #### [facility] [address] [place] [address] Dr. aRmsey Sanchez CO2 [Moles/Vol] 28.5 mmol/L Normal 21.0-32.0 [facility] Comment on above: Performed By: #### C BC #### [facility] [address] [place] [address] Dr. Ramsey Sanchez Creatinine [Mass/Vol] 0.89 mg/dL Normal 0.70-1.30 [facility] Comment on above: Performed By: #### C BC #### [facility] [address] [place] [address] Dr. Ramsey Sanchez EGFR-AF IRAQI >60 Normal >=60 [facility] Comment on above: Performed By: #### C BC #### [facility] [address] [place] [address] Dr. Ramsey Sanchez EGFR-NON AF IRAQI >60 Normal >=60 [facility] Comment on above: Performed By: #### C BC #### [facility] [address] [place] [address] Dr. Ramsey Sanchez Glucose [Mass/Vol] 102 mg/dL Normal 74-106 [facility] Comment on above: Performed By: #### C BC #### [facility] [address] [place] [address] Dr. Ramsey Sanchez Potassium [Moles/Vol] 4.1 mmol/L Normal 3.5-5.1 [facility] Comment on above: Performed By: #### C BC #### [facility] [address] [place] [address] Dr. Ramsey Sanchez Sodium [Moles/Vol] 140 mmol/L Normal 136-145 [facility] Comment on above: Performed By: #### C BC #### [facility] [address] [place] [address] Dr. Ramsey Sanchez Urea nitrogen [Mass/Vol] 16.0 mg/dL Normal 7.0-18.0 [facility] Comment on above: Performed By: #### C BC #### [facility] [address] [place] [address] Dr. Ramsey Sanchez Urea nitrogen/Creatinine [Mass ratio] 18.0 mg/mg Normal [facility] Comment on above: Performed By: #### C BC #### [facility] [address] [place] [address] Dr. Ramsey Sanchez STOOL CULTUREon 03-10-2022 Campylobacter Culture Final report Normal [facility] Comment on above: Performed By: #### C XSTOOL #### [facility] [address] [place] [address] Dr. Ramsey Sanchez E coli Shiga Toxin EIA Negative Normal Negative [facility] Comment on above: Performed By: #### C XSTOOL #### [facility] [address] [address] [address] Ramsey Sanchez Result 1 Comment Normal [facility] Comment on above: Result Comment: No S almonella or Shigella recovered. Performed By: #### C XSTOOL #### [facility] [address] [address] [address] Ramsey Sanchez Result Comment: No C ampylobacter species isolated. Salmonella/Shigella Screen Final report Normal [facility] Comment on above: Performed By: #### C XSTOOL #### [facility] [address] [address] [address] Ramsey Sanchez VITAMIN D 25 OHon 03-10-2022 VIT D 25-OH 40.2 ng/mL [facility] Comment on above: Performed By: #### V ITAD #### [facility] [address] [place] [address] Dr. Ramsey Sanchez VIT D RANGES SEE BELOW Normal [facility] Comment on above: Result Comment: <20 ng/mL Vit D deficient 20 - <30 ng/mL Vit D insufficient 30 - 100 ng/mL Vit D sufficient >100 ng/mL Potential Toxicity Performed By: #### V ITAD #### [facility] [address] [address] [address] Ramsey Sanchez POC GLUCOSE LABon 08-31-2019 Glucose [Mass/Vol] 120 mg/dL High 70-100 [facility] Comment on above: Performed By: #### [id number] #### [facility] [address] [facility] [place] [place] [address], [place] Glucose [Mass/Vol] 114 mg/dL High 70-100 [facility] Comment on above: Performed By: #### 8 [id number] #### [facility] [address] [facility] [place] [place] [address], [place] Glucose [Mass/Vol] 136 mg/dL High 70-100 [facility] Comment on above: Performed By: #### 8 [id number] #### [facility] [address] [place] [address], [place] BASIC METABOLIC PANELon 08-15 Calcium [Mass/Vol] 9.3 mg/dL Normal 8.6-10.3 [facility] Comment on above: Performed By: #### 0 0071 #### [facility] [address] [place] [address], [place] Chloride [Moles/Vol] 103 mmol/L Normal 98-107 [facility] Comment on above: Performed By: #### 0 0071 #### [facility] [address] [place] [address], [place] CO2 [Moles/Vol] 27 mmol/L Normal 21-31 [facility] Comment on above: Performed By: #### 0 0071 #### [facility] [address] [place] [address], [place] Creatinine [Mass/Vol] 1.04 mg/dL Normal 0.70-1.30 [facility] Comment on above: Performed By: #### 0 0071 #### [facility] [address] [place] [address], [place] GFR/1.73 sq M predicted among blacks MDRD (S/P/Bld) [Vol rate/Area] mL/min/{1.73_m2} Normal >60 [facility] Comment on above: Result Comment: Calc ulation may not be valid for patients over 70 years Performed By: #### 0 0071 #### [facility] [address] [place] [address], [place] GFR/1.73 sq M predicted among non-blacks MDRD (S/P/Bld) [Vol rate/Area] mL/min/{1.73_m2} Normal >60 [facility] Comment on above: Result Comment: Calc ulation may not be valid for patients over 70 years Performed By: #### 0 0071 #### [facility] [address] [place] [address], [place] Glucose [Mass/Vol] 128 mg/dL High 70-100 [facility] Comment on above: Performed By: #### 0 0071 #### [facility] [address] [place] [address], [facility] Potassium [Moles/Vol] 4.2 mmol/L Normal 3.5-5.1 [facility] Comment on above: Performed By: #### 0 0071 #### [facility] [address] [place] [address], [facility] Sodium [Moles/Vol] 139 mmol/L Normal 136-145 [facility] Comment on above: Performed By: #### 0 1 #### [facility] [address] [place] [id number], [facility] Urea nitrogen [Mass/Vol] 20 mg/dL Normal 7-25 [facility] Comment on above: Performed By: #### 0 1 #### [facility] [address] [place] [address], [facility] CBC COMPLETE BLOOD COUNTon 08-30-2019 Erythrocyte distribution width (RBC) [Ratio] 13.9 % Normal 11.5-15.0 [facility] Comment on above: Performed By: #### 5 08 #### [facility] [address] [place] [address], [facility] Hematocrit (Bld) [Volume fraction] 44.9 % Normal 39.0-50.0 [facility] Comment on above: Performed By: #### 5 08 #### [facility] [address] [place] [address], [facility] Hemoglobin (Bld) [Mass/Vol] 14.5 g/dL Normal 13.0-17.0 [facility] Comment on above: Performed By: #### 5 08 #### [facility] [address] [place] [address], [facility] MCH (RBC) [Entitic mass] 30.7 pg Normal 27.0-33.0 [facility] Comment on above: Performed By: #### 5 [id number] #### [facility] [address] [place] [address], [facility] MCHC (RBC) [Mass/Vol] 32.3 g/dL Normal 32.0-35.0 [facility] Comment on above: Performed By: #### 5 0608 #### [facility] [address] [place] [address], [facility] MCV (RBC) [Entitic vol] 95.1 fL Normal 82.0-98.0 [facility] Comment on above: Performed By: #### 5 0608 #### [facility] [address] [place] [address], [facility] Nucleated RBC/100 WBC (Bld) [Ratio] 0 % Normal 0-0 [facility] Comment on above: Performed By: #### 5 0608 #### [facility] [address] [place] [address], [facility] PLAT CNT 238 10*3/uL Normal 150-400 [facility] Comment on above: Performed By: #### 5 0608 #### [facility] [address] [place] [address], [facility] RBC (Bld) [#/Vol] 4.72 10*6/uL Normal 4.20-5.70 [facility] Comment on above: Performed By: #### 5 0608 #### [facility] [address] [place] [address], [facility] WBC (Bld) [#/Vol] 12.83 10*3/uL High 4.00-10.60 [facility] Comment on above: Performed By: #### 5 [id number] #### [facility] [address] Cardiovascular Lab Reporton 08-30-2019 Cardiovascular Lab Report [facility] Patient Name: Bennett, [facility] MR #: [id number] Physician: Margaret Arellano, Department of M.D. Medicine Service Date: 08/30/2019 Division of Birthdate: 1940 Cardiology Room #: 3AB [id number] [facility] [address] [place] [address] Cardiovascular Laboratory Report FINAL IMPRESSIONS: 1. 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 2. 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 3. 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 4. Pcnl-lh-enqntanl disease of the left anterior descending coronary [...] Follow up with Dr. Arellano in the [place] office in the next 2 to 4 [...] left common femoral artery was obtained. A 6-Turkish 11 cm sheath was inserted without difficulty. Limited femoral angiography was performed. Bilateral selective coronary angiography was performed using JL4 and JR4 catheters. After reviewing the images, it was elected to proceed with an interventional procedure. A 6-Turkish XB 3.5 guide catheter was advanced over [...] conclude the procedure. Attempts to deploy a 6-Turkish MynxGrip closure device were unsuccessful. Therefore, manual [...] Arellano M.D. Date Trans: 08/30/2019 05:00 P/emmanuelle [id number] cc: Demetrius Cooper MD [place] [address] Normal [facility] POC GLUCOSE LABon 08-30-2019 Glucose [Mass/Vol] 172 mg/dL High 70-100 [facility] Comment on above: Performed By: #### [id number] #### [facility] [address] [place] [address], [facility] Glucose [Mass/Vol] 138 mg/dL High 70-100 [facility] Comment on above: Performed By: #### [id number] #### [facility] [address] [place] [address], [facility] Vital Signs Date Time Vital Sign Value Performing Clinician Facility 01-18-2025 09:32-0400 Body height 165.1 cm Veena Adkins DO Work Phone: [facility] 01-18-2025 09:32-0400 Body mass index (BMI) [Ratio] 24.63 kg/m2 Veena Itzkowitz DO Work Phone: [facility] 01-18-2025 09:32-0400 Body weight 67.13 kg Veena Itzkowitz DO Work Phone: [facility] 12-26-2024 13:08-0400 Body weight 72.12 kg Demetrius Cooper MD Work Phone: [facility] 12-11-2024 13:30-0400 Body mass index (BMI) [Ratio] 26.65 kg/m2 Mary Schneider MD Work Phone: [facility] 12-11-2024 13:30-0400 Body weight 72.65 kg Mary Schneider MD Work Phone: [facility] 12-11-2024 13:30-0400 Diastolic blood pressure 69 mm[Hg] Mary Schneider MD Work Phone: [facility] 12-11-2024 13:30-0400 Systolic blood pressure 111 mm[Hg] Mary Schneider MD Work Phone: [facility] 11-23-2024 09:57-0400 Body temperature 98 [degF] Demetrius Cooper MD Work Phone: [facility] 11-23-2024 09:57-0400 Body weight 73.02 kg Demetrius Cooper MD Work Phone: [facility] 11-23-2024 09:57-0400 Diastolic blood pressure 64 mm[Hg] Demetrius Cooper MD Work Phone: [facility] 11-23-2024 09:57-0400 Heart rate 68 /min Demetrius Cooper MD Work Phone: [facility] 11-23-2024 09:57-0400 Respiratory rate 18 /min Demetrius Cooper MD Work Phone: [facility] 11-23-2024 09:57-0400 SaO2% (BldA) [Mass fraction] 98 % Demetrius Cooper MD Work Phone: [facility] 11-23-2024 09:57-0400 Systolic blood pressure 103 mm[Hg] Demetrius Cooper MD Work Phone: [facility] 10-11-2024 13:56-0400 Body height 165.1 cm Veena Itzkowitz DO Work Phone: [facility] 10-11-2024 13:56-0400 Body mass index (BMI) [Ratio] 24.63 kg/m2 Veena Itzkowitz DO Work Phone: [facility] 10-11-2024 13:56-0400 Body weight 67.13 kg Veena Itzkowitz DO Work Phone: [facility] 10-04-2024 14:58-0400 Body height 167.64 cm Demetrius Cooper MD Work Phone: [facility] 10-03-2024 12:00-0400 Diastolic blood pressure 63 mm[Hg] Demetrius Cooper MD Work Phone: [facility] 10-03-2024 12:00-0400 Heart rate 63 /min Demetrius Cooper MD Work Phone: [facility] 10-03-2024 12:00-0400 Respiratory rate 16 /min Demetrius Cooper MD Work Phone: [facility] 10-03-2024 12:00-0400 SaO2% (BldA) [Mass fraction] 95 % Demetrius Cooper MD Work Phone: [facility] 10-03-2024 12:00-0400 Systolic blood pressure 131 mm[Hg] Demetrius Cooper MD Work Phone: [facility] 10-03-2024 11:30-0400 Inhaled oxygen flow rate 4 L/min Demetrius Cooper MD Work Phone: [facility] 10-03-2024 10:15-0400 Body height 165.1 cm Demetrius Cooper MD Work Phone: [facility] 10-03-2024 10:15-0400 Body temperature 97.3 [degF] Demetrius Cooper MD Work Phone: [facility] 10-03-2024 10:15-0400 Body weight 67.13 kg Demetrius Cooper MD Work Phone: [facility] 09-28-2024 13:47-0400 Body height 165.1 cm Missy Lowe PA Work Phone: [facility] 09-28-2024 13:47-0400 Body mass index (BMI) [Ratio] 24.63 kg/m2 Missy Lowe PA Work Phone: [facility] 09-28-2024 13:47-0400 Body weight 67.13 kg Missy Lowe PA Work Phone: [facility] 09-28-2024 13:47-0400 Diastolic blood pressure 68 mm[Hg] Missy Lowe PA Work Phone: [facility] 09-28-2024 13:47-0400 Systolic blood pressure 110 mm[Hg] Missy Lowe PA Work Phone: [facility] 09-27-2024 13:20-0400 Body height 165.1 cm Veena Itzkowitz DO Work Phone: [facility] 09-27-2024 13:20-0400 Body mass index (BMI) [Ratio] 24.96 kg/m2 Veena Itzkowitz DO Work Phone: [facility] 09-27-2024 13:20-0400 Body weight 68.04 kg Veena Itzkowitz DO Work Phone: [facility] 09-27-2024 13:20-0400 Diastolic blood pressure 62 mm[Hg] Veena Itzkowitz DO Work Phone: [facility] 09-27-2024 13:20-0400 Systolic blood pressure 94 mm[Hg] Veena Itzkowitz DO Work Phone: [facility] 09-26-2024 14:55-0400 Body height 165.1 cm Demetrius Cooper MD Work Phone: [facility] 09-26-2024 14:55-0400 Body mass index (BMI) [Ratio] 24.6 kg/m2 Demetrius Cooper MD Work Phone: [facility] 09-26-2024 14:55-0400 Body temperature 97.8 [degF] Demetrius Cooper MD Work Phone: [facility] 09-26-2024 14:55-0400 Body weight 67.13 kg Demetrius Cooper MD Work Phone: [facility] 09-26-2024 14:55-0400 Diastolic blood pressure 51 mm[Hg] Demetrius Cooper MD Work Phone: [facility] 09-26-2024 14:55-0400 Heart rate 66 /min Demetrius Cooper MD Work Phone: [facility] 09-26-2024 14:55-0400 Systolic blood pressure 85 mm[Hg] Demetrius Cooper MD Work Phone: [facility] 09-20-2024 21:13-0400 Body temperature 97.6 [degF] Demetrius Cooper MD Work Phone: [facility] 09-20-2024 21:13-0400 Diastolic blood pressure 62 mm[Hg] Demetrius Cooper MD Work Phone: [facility] 09-20-2024 21:13-0400 Heart rate 68 /min Demetrius Cooper MD Work Phone: [facility] 09-20-2024 21:13-0400 Respiratory rate 18 /min Demetrius Cooper MD Work Phone: [facility] 09-20-2024 21:13-0400 SaO2% (BldA) [Mass fraction] 96 % Demetrius Cooper MD Work Phone: [facility] 09-20-2024 21:13-0400 Systolic blood pressure 113 mm[Hg] Demetrius Cooper MD Work Phone: [facility] 09-20-2024 15:13-0400 Body height 165.1 cm Demetrius Cooper MD Work Phone: [facility] 09-20-2024 15:13-0400 Body weight 65 kg Demetrius Cooper MD Work Phone: [facility] 09-11-2024 13:07-0400 Body height 165.1 cm Mary Schneider MD Work Phone: [facility] 09-11-2024 13:07-0400 Body mass index (BMI) [Ratio] 24.84 kg/m2 Mary Schneider MD Work Phone: [facility] 09-11-2024 13:07-0400 Body temperature 96.8 [degF] Mary Schneider MD Work Phone: [facility] 09-11-2024 13:07-0400 Body weight 67.72 kg Mary Schneider MD Work Phone: [facility] 09-11-2024 10:14-0400 Body height 162.56 cm Demetrius Cooper MD Work Phone: [facility] 09-11-2024 10:14-0400 Body mass index (BMI) [Ratio] 25.7 kg/m2 Demetrius Cooper MD Work Phone: [facility] 09-11-2024 10:14-0400 Body weight 68.03 kg Demetrius Cooper MD Work Phone: [facility] 09-11-2024 10:14-0400 Diastolic blood pressure 74 mm[Hg] Demetrius Cooper MD Work Phone: [facility] 09-11-2024 10:14-0400 Heart rate 76 /min Demetrius Cooper MD Work Phone: [facility] 09-11-2024 10:14-0400 SaO2% (BldA) [Mass fraction] 98 % Demetrius Cooper MD Work Phone: [facility] 09-11-2024 10:14-0400 Systolic blood pressure 113 mm[Hg] Demetrius Cooper MD Work Phone: [facility] 08-23-2024 09:49-0400 Body temperature 97.5 [degF] Demetrius Cooper MD Work Phone: [facility] 08-23-2024 09:49-0400 Body weight 72.12 kg Demetrius Cooper MD Work Phone: [facility] 08-23-2024 09:49-0400 Diastolic blood pressure 94 mm[Hg] Demetrius Cooper MD Work Phone: [facility] 08-23-2024 09:49-0400 Heart rate 94 /min Demetrius Cooper MD Work Phone: [facility] 08-23-2024 09:49-0400 Respiratory rate 20 /min Demetrius Cooper MD Work Phone: [facility] 08-23-2024 09:49-0400 SaO2% (BldA) [Mass fraction] 98 % Demetrius Cooper MD Work Phone: [facility] 08-23-2024 09:49-0400 Systolic blood pressure 114 mm[Hg] Demetrius Cooper MD Work Phone: [facility] 08-21-2024 12:53-0400 Body height 167.64 cm Demetrius Cooper MD Work Phone: [facility] 08-21-2024 11:36-0400 Body temperature 98 [degF] Demetrius Cooper MD Work Phone: [facility] 08-21-2024 11:36-0400 Diastolic blood pressure 57 mm[Hg] Demetrius Cooper MD Work Phone: [facility] 08-21-2024 11:36-0400 Heart rate 76 /min Demetrius Cooper MD Work Phone: [facility] 08-21-2024 11:36-0400 Respiratory rate 18 /min Demetrius Cooper MD Work Phone: [facility] 08-21-2024 11:36-0400 SaO2% (BldA) [Mass fraction] 96 % Demetrius Cooper MD Work Phone: [facility] 08-21-2024 11:36-0400 Systolic blood pressure 122 mm[Hg] Dmeetrius Cooper MD Work Phone: [facility] 08-21-2024 04:13-0400 Body weight 70.9 kg Demetrius Cooper MD Work Phone: [facility] 08-20-2024 19:00-0400 Diastolic blood pressure 54 mm[Hg] Demetrius Cooper MD Work Phone: [facility] 08-20-2024 19:00-0400 Heart rate 61 /min Demetrius Cooper MD Work Phone: [facility] 08-20-2024 19:00-0400 Respiratory rate 18 /min Demetrius Cooper MD Work Phone: [facility] 08-20-2024 19:00-0400 SaO2% (BldA) [Mass fraction] 92 % Demetrius Cooper MD Work Phone: [facility] 08-20-2024 19:00-0400 Systolic blood pressure 104 mm[Hg] Demetrius Cooper MD Work Phone: [facility] 08-20-2024 18:04-0400 Body temperature 98.1 [degF] Demetrius Cooper MD Work Phone: [facility] 08-20-2024 16:57-0400 Body height 162.56 cm Demetrius Cooper MD Work Phone: [facility] 08-20-2024 16:57-0400 Body weight 71.6 kg Demetrius Cooper MD Work Phone: [facility] 08-17-2024 08:23-0400 Body height 167.64 cm Demetrius Cooper MD Work Phone: [facility] 08-17-2024 08:23-0400 Body temperature 97.3 [degF] Demetrius Cooper MD Work Phone: [facility] 08-17-2024 08:23-0400 Body weight 72.25 kg Demetrius Cooper MD Work Phone: [facility] 08-17-2024 08:23-0400 Diastolic blood pressure 71 mm[Hg] Demetrius Cooper MD Work Phone: [facility] 08-17-2024 08:23-0400 Heart rate 90 /min Demetrius Cooper MD Work Phone: [facility] 08-17-2024 08:23-0400 Respiratory rate 18 /min Demetrius Cooper MD Work Phone: [facility] 08-17-2024 08:23-0400 SaO2% (BldA) [Mass fraction] 95 % Demetrius Cooper MD Work Phone: [facility] 08-17-2024 08:23-0400 Systolic blood pressure 151 mm[Hg] Demetrius Cooper MD Work Phone: [facility] 08-16-2024 09:18-0400 Body weight 72.4 kg Demetrius Cooper MD Work Phone: [facility] 08-10-2024 15:40-0400 Body height 167.64 cm Demetrius Cooper MD Work Phone: [facility] 08-10-2024 08:25-0400 Body temperature 97.8 [degF] Demetrius Cooper MD Work Phone: [facility] 08-10-2024 08:25-0400 Diastolic blood pressure 65 mm[Hg] Demetrius Cooper MD Work Phone: [facility] 08-10-2024 08:25-0400 Heart rate 68 /min Demetrius Cooper MD Work Phone: [facility] 08-10-2024 08:25-0400 Respiratory rate 18 /min Demetrius Cooper MD Work Phone: [facility] 08-10-2024 08:25-0400 SaO2% (BldA) [Mass fraction] 94 % Demetrius Cooper MD Work Phone: [facility] 08-10-2024 08:25-0400 Systolic blood pressure 121 mm[Hg] Demetrius Cooper MD Work Phone: [facility] 08-09-2024 09:28-0400 Body weight 73.1 kg Demetrius Cooper MD Work Phone: [facility] 08-09-2024 09:16-0400 Body weight 73.1 kg Demetrius Cooper MD Work Phone: [facility] 08-09-2024 09:16-0400 Diastolic blood pressure 69 mm[Hg] Demetrius Cooper MD Work Phone: [facility] 08-09-2024 09:16-0400 Heart rate 77 /min Demetrius Cooper MD Work Phone: [facility] 08-09-2024 09:16-0400 Respiratory rate 18 /min Demetrius Cooper MD Work Phone: [facility] 08-09-2024 09:16-0400 SaO2% (BldA) [Mass fraction] 97 % Demetrius Cooper MD Work Phone: [facility] 08-09-2024 09:16-0400 Systolic blood pressure 110 mm[Hg] Demetrius Cooper MD Work Phone: [facility] 08-03-2024 09:58-0400 Body height 167.64 cm Demetrius Cooper MD Work Phone: [facility] 08-03-2024 08:27-0400 Body temperature 97.9 [degF] Demetrius Cooper MD Work Phone: [facility] 08-03-2024 08:27-0400 Diastolic blood pressure 74 mm[Hg] Demetrius Cooper MD Work Phone: [facility] 08-03-2024 08:27-0400 Heart rate 85 /min Demetrius Cooper MD Work Phone: [facility] 08-03-2024 08:27-0400 Respiratory rate 18 /min Demetrius Cooper MD Work Phone: [facility] 08-03-2024 08:27-0400 SaO2% (BldA) [Mass fraction] 95 % Demetrius Cooper MD Work Phone: [facility] 08-03-2024 08:27-0400 Systolic blood pressure 133 mm[Hg] Demetrius Cooper MD Work Phone: [facility] 07-28-2024 16:29-0400 Body height 167.64 cm Demetrius Cooper MD Work Phone: [facility] 07-27-2024 08:28-0400 Body temperature 98.1 [degF] Demetrius Cooper MD Work Phone: [facility] 07-27-2024 08:28-0400 Body weight 74.2 kg Demetrius Cooper MD Work Phone: [facility] 07-27-2024 08:28-0400 Diastolic blood pressure 79 mm[Hg] Demetrius Cooper MD Work Phone: [facility] 07-27-2024 08:28-0400 Heart rate 62 /min Demetrius Cooper MD Work Phone: [facility] 07-27-2024 08:28-0400 Respiratory rate 18 /min Demetrius Cooper MD Work Phone: [facility] 07-27-2024 08:28-0400 SaO2% (BldA) [Mass fraction] 95 % Demetrius Cooper MD Work Phone: [facility] 07-27-2024 08:28-0400 Systolic blood pressure 126 mm[Hg] Demetrius Cooper MD Work Phone: [facility] 07-26-2024 08:23-0400 Body temperature 97.6 [degF] Demetrius Cooper MD Work Phone: [facility] 07-26-2024 08:23-0400 Body weight 73.48 kg Demetrius Cooper MD Work Phone: [facility] 07-26-2024 08:23-0400 Diastolic blood pressure 72 mm[Hg] Demetrius Cooper MD Work Phone: [facility] 07-26-2024 08:23-0400 Heart rate 64 /min Demetrius Cooper MD Work Phone: [facility] 07-26-2024 08:23-0400 Respiratory rate 20 /min Demetrius Cooper MD Work Phone: [facility] 07-26-2024 08:23-0400 SaO2% (BldA) [Mass fraction] 96 % Demetrius Cooper MD Work Phone: [facility] 07-26-2024 08:23-0400 Systolic blood pressure 120 mm[Hg] Demetrius Cooper MD Work Phone: [facility] 07-20-2024 10:18-0500 Body weight 75.38 kg Demetrius Cooper MD Work Phone: [facility] 07-20-2024 08:46-0500 Body temperature 97.8 [degF] Demetrius Cooper MD Work Phone: [facility] 07-20-2024 08:46-0500 Body weight 74.84 kg Demetrius Cooper MD Work Phone: [facility] 07-20-2024 08:46-0500 Diastolic blood pressure 70 mm[Hg] Demetrius Cooper MD Work Phone: [facility] 07-20-2024 08:46-0500 Heart rate 68 /min Demetrius Cooper MD Work Phone: [facility] 07-20-2024 08:46-0500 Respiratory rate 20 /min Demetrius Cooper MD Work Phone: [facility] 07-20-2024 08:46-0500 SaO2% (BldA) [Mass fraction] 97 % Demetrius Cooper MD Work Phone: [facility] 07-20-2024 08:46-0500 Systolic blood pressure 137 mm[Hg] Demetrius Cooper MD Work Phone: [facility] 07-18-2024 08:50-0500 Body height 167.64 cm Demetrius Cooper MD Work Phone: [facility] 07-17-2024 14:33-0500 Diastolic blood pressure 73 mm[Hg] Demetrius Cooper MD Work Phone: [facility] 07-17-2024 14:33-0500 Heart rate 59 /min Demetrius Cooper MD Work Phone: [facility] 07-17-2024 14:33-0500 Respiratory rate 16 /min Demetrius Cooper MD Work Phone: [facility] 07-17-2024 14:33-0500 SaO2% (BldA) [Mass fraction] 96 % Demetrius Cooper MD Work Phone: [facility] 07-17-2024 14:33-0500 Systolic blood pressure 158 mm[Hg] Demetrius Cooper MD Work Phone: [facility] 07-17-2024 13:48-0500 Body temperature 97.3 [degF] Demetrius Cooper MD Work Phone: [facility] 07-17-2024 10:40-0500 Body height 165.1 cm Demetrius Cooper MD Work Phone: [facility] 07-17-2024 10:40-0500 Body weight 77.11 kg Demetrius Cooper MD Work Phone: [facility] 07-13-2024 16:08-0500 Body height 167.64 cm Demetrius Cooper MD Work Phone: [facility] 07-13-2024 08:37-0500 Body temperature 97.8 [degF] Demetrius Cooper MD Work Phone: [facility] 07-13-2024 08:37-0500 Body weight 77.01 kg Demetrius Cooper MD Work Phone: [facility] 07-13-2024 08:37-0500 Diastolic blood pressure 71 mm[Hg] Demetrius Cooper MD Work Phone: [facility] 07-13-2024 08:37-0500 Heart rate 64 /min Demetrius Cooper MD Work Phone: [facility] 07-13-2024 08:37-0500 Respiratory rate 18 /min Demetrius Cooper MD Work Phone: [facility] 07-13-2024 08:37-0500 SaO2% (BldA) [Mass fraction] 95 % Demetrius Cooper MD Work Phone: [facility] 07-13-2024 08:37-0500 Systolic blood pressure 127 mm[Hg] Demetrius Cooper MD Work Phone: [facility] 07-12-2024 08:41-0500 Body temperature 97.3 [degF] Deemtrius Cooper MD Work Phone: [facility] 07-12-2024 08:41-0500 Body weight 76.65 kg Demetrius Cooper MD Work Phone: [facility] 07-12-2024 08:41-0500 Diastolic blood pressure 60 mm[Hg] Demetrius Cooper MD Work Phone: [facility] 07-12-2024 08:41-0500 Heart rate 61 /min Demetrius Cooper MD Work Phone: [facility] 07-12-2024 08:41-0500 Respiratory rate 20 /min Demetrius Cooper MD Work Phone: [facility] 07-12-2024 08:41-0500 SaO2% (BldA) [Mass fraction] 96 % Demetrius Cooper MD Work Phone: [facility] 07-12-2024 08:41-0500 Systolic blood pressure 106 mm[Hg] Demetrius Cooper MD Work Phone: [facility] 07-06-2024 11:06-0500 Body height 167.64 cm Demetrius Cooper MD Work Phone: [facility] 07-06-2024 08:36-0500 Body temperature 97.6 [degF] Demetrius Cooper MD Work Phone: [facility] 07-06-2024 08:36-0500 Body weight 77.83 kg Demetrius Cooper MD Work Phone: [facility] 07-06-2024 08:36-0500 Diastolic blood pressure 71 mm[Hg] Demetrius Cooper MD Work Phone: [facility] 07-06-2024 08:36-0500 Heart rate 63 /min Demetrius Cooper MD Work Phone: [facility] 07-06-2024 08:36-0500 Respiratory rate 18 /min Demetrius Cooper MD Work Phone: [facility] 07-06-2024 08:36-0500 SaO2% (BldA) [Mass fraction] 95 % Demetrius Cooper MD Work Phone: [facility] 07-06-2024 08:36-0500 Systolic blood pressure 122 mm[Hg] Demetrius Cooper MD Work Phone: [facility] 06-22-2024 14:58-0500 Body height 162.56 cm Demetrius Cooper MD Work Phone: [facility] 06-22-2024 14:58-0500 Body temperature 97.5 [degF] Demetrius Cooper MD Work Phone: [facility] 06-22-2024 14:58-0500 Body weight 78 kg Demetrius Cooper MD Work Phone: [facility] 06-22-2024 14:58-0500 Diastolic blood pressure 72 mm[Hg] Demetrius Cooper MD Work Phone: [facility] 06-22-2024 14:58-0500 Heart rate 50 /min Demetrius Cooper MD Work Phone: [facility] 06-22-2024 14:58-0500 Respiratory rate 20 /min Demetrius Cooper MD Work Phone: [facility] 06-22-2024 14:58-0500 SaO2% (BldA) [Mass fraction] 95 % Demetrius Cooper MD Work Phone: [facility] 06-22-2024 14:58-0500 Systolic blood pressure 149 mm[Hg] Demetrius Cooper MD Work Phone: [facility] 06-20-2024 14:38-0500 Body height 160 cm Matteo Bell MD Work Phone: [facility] 06-20-2024 14:38-0500 Body mass index (BMI) [Ratio] 30.11 kg/m2 Matteo Bell MD Work Phone: [facility] 06-20-2024 14:38-0500 Body weight 77.11 kg Matteo Bell MD Work Phone: [facility] 06-20-2024 14:38-0500 Diastolic blood pressure 74 mm[Hg] Matteo Bell MD Work Phone: [facility] 06-20-2024 14:38-0500 Systolic blood pressure 120 mm[Hg] Matteo Bell MD Work Phone: [facility] 06-14-2024 10:45-0500 Body height 167.64 cm Demetrius Cooper MD Work Phone: [facility] 06-14-2024 10:45-0500 Body mass index (BMI) [Ratio] 27.6 kg/m2 Demetrius Cooper MD Work Phone: [facility] 06-14-2024 10:45-0500 Body temperature 97.6 [degF] Demetrius Cooper MD Work Phone: [facility] 01-29-2025 10:45-0500 Body weight 77.56 kg Demetrius Cooper MD Work Phone: [facility] 06-14-2024 10:45-0500 Diastolic blood pressure 67 mm[Hg] Demetrius Cooper MD Work Phone: [facility] 06-14-2024 10:45-0500 Heart rate 69 /min Demetrius Cooper MD Work Phone: [facility] 06-14-2024 10:45-0500 Respiratory rate 20 /min Demetrius Cooper MD Work Phone: [facility] 06-14-2024 10:45-0500 Systolic blood pressure 103 mm[Hg] Demetrius Cooper MD Work Phone: [facility] 06-14-2024 09:53-0500 Body height 167.64 cm Demetrius Cooper MD Work Phone: [facility] 06-14-2024 09:53-0500 Body mass index (BMI) [Ratio] 27.6 kg/m2 Demetrius Cooper MD Work Phone: [facility] 06-14-2024 09:53-0500 Body temperature 97.6 [degF] Demetrius Cooper MD Work Phone: [facility] 06-14-2024 09:53-0500 Body weight 77.56 kg Demetrius Cooper MD Work Phone: [facility] 06-14-2024 09:53-0500 Diastolic blood pressure 67 mm[Hg] Demetrius Cooper MD Work Phone: [facility] 06-14-2024 09:53-0500 Heart rate 69 /min Demetrius Cooper MD Work Phone: [facility] 06-14-2024 09:53-0500 Respiratory rate 20 /min Demetrius Cooper MD Work Phone: [facility] 06-14-2024 09:53-0500 SaO2% (BldA) [Mass fraction] 96 % Demetrius Cooper MD Work Phone: [facility] 06-14-2024 09:53-0500 Systolic blood pressure 103 mm[Hg] Demetrius Cooper MD Work Phone: [facility] 06-05-2024 14:13-0500 Diastolic blood pressure 96 mm[Hg] [address] 06-05-2024 14:13-0500 Heart rate 65 /min [address] 06-05-2024 14:13-0500 Respiratory rate 16 /min [address] 06-05-2024 14:13-0500 SaO2% (BldA) [Mass fraction] 96 % [address] 06-05-2024 14:13-0500 Systolic blood pressure 147 mm[Hg] [address] 06-05-2024 12:22-0500 Body temperature 97.2 [degF] [address] 05-30-2024 11:16-0500 Body height 162.6 cm Mary Schneider MD Work Phone: [facility] 05-30-2024 11:16-0500 Body mass index (BMI) [Ratio] 28.89 kg/m2 Mary Schneider MD Work Phone: [facility] 05-30-2024 11:16-0500 Body temperature 98.2 [degF] Mary Schneider MD Work Phone: [facility] 05-30-2024 11:16-0500 Body weight 76.34 kg Mary Schneider MD Work Phone: [facility] 05-11-2024 10:00-0500 Body temperature 97.7 [degF] Mary Schneider MD Work Phone: [facility] 05-11-2024 10:00-0500 Diastolic blood pressure 72 mm[Hg] Mary Schneider MD Work Phone: [facility] 05-11-2024 10:00-0500 Heart rate 61 /min Mary Schneider MD Work Phone: [facility] 05-11-2024 10:00-0500 Respiratory rate 14 /min Mary Schneider MD Work Phone: [facility] 05-11-2024 10:00-0500 SaO2% (BldA) [Mass fraction] 95 % Mary Schneider MD Work Phone: [facility] 05-11-2024 10:00-0500 Systolic blood pressure 140 mm[Hg] Mary Schneider MD Work Phone: [facility] 05-11-2024 06:08-0500 Body height 162.6 cm Mary Schneider MD Work Phone: [facility] 05-11-2024 06:08-0500 Body mass index (BMI) [Ratio] 29.52 kg/m2 Mary Schneider MD Work Phone: [facility] 05-11-2024 06:08-0500 Body weight 78 kg Mary Schneider MD Work Phone: [facility] 04-07-2024 10:40-0500 Body height 162.6 cm Mary Schneider MD Work Phone: [facility] 04-07-2024 10:40-0500 Body mass index (BMI) [Ratio] 29.18 kg/m2 Mary Schneider MD Work Phone: [facility] 04-07-2024 10:40-0500 Body weight 77.11 kg Mary Schneider MD Work Phone: [facility] 03-29-2024 10:06-0500 Body height 162.6 cm Luc Ham MD Work Phone: [facility] 03-29-2024 10:06-0500 Body mass index (BMI) [Ratio] 29.7 kg/m2 Luc Ham MD Work Phone: [facility] 03-29-2024 10:06-0500 Body weight 78.47 kg Luc Ham MD Work Phone: [facility] 03-29-2024 10:06-0500 Diastolic blood pressure 70 mm[Hg] Luc Ham MD Work Phone: [facility] 03-29-2024 10:06-0500 Systolic blood pressure 138 mm[Hg] Luc Ham MD Work Phone: [facility] 03-23-2024 14:06-0500 Blood Pressure Location Wiley Sarmini [facility] 03-23-2024 14:06-0500 Diastolic blood pressure 74 mm[Hg] Wiley Sarmini [facility] 03-23-2024 14:06-0500 Heart rate 71 /min Wiley Sarmini [facility] 03-23-2024 14:06-0500 Respiratory rate 16 /min Wiley Sarmini [facility] 03-23-2024 14:06-0500 Systolic blood pressure 117 mm[Hg] Wiley Sarmini [facility] 03-08-2024 09:25-0400 Body height 162.6 cm Luc Ham MD Work Phone: [facility] 03-08-2024 09:25-0400 Body mass index (BMI) [Ratio] 29.87 kg/m2 Luc Ham MD Work Phone: [facility] 03-08-2024 09:25-0400 Body weight 78.93 kg Luc Ham MD Work Phone: [facility] 03-08-2024 09:25-0400 Diastolic blood pressure 66 mm[Hg] Luc Ham MD Work Phone: [facility] 03-08-2024 09:25-0400 Systolic blood pressure 124 mm[Hg] Luc Ham MD Work Phone: [facility] 02-16-2024 14:19-0400 Body height 162.6 cm Luc Ham MD Work Phone: [facility] 02-16-2024 14:19-0400 Body mass index (BMI) [Ratio] 29.87 kg/m2 Luc Ham MD Work Phone: [facility] 02-16-2024 14:19-0400 Body weight 78.93 kg Luc Ham MD Work Phone: [facility] 02-16-2024 14:19-0400 Diastolic blood pressure 74 mm[Hg] Luc Ham MD Work Phone: [facility] 02-16-2024 14:19-0400 Systolic blood pressure 129 mm[Hg] Luc Ham MD Work Phone: [facility] 02-16-2024 08:59-0400 Body height 162.6 cm Missy Lowe PA Work Phone: [facility] 02-16-2024 08:59-0400 Body mass index (BMI) [Ratio] 29.7 kg/m2 Missy Lowe PA Work Phone: [facility] 02-16-2024 08:59-0400 Body weight 78.47 kg Missy Lowe PA Work Phone: [facility] 02-16-2024 08:59-0400 Diastolic blood pressure 78 mm[Hg] Missy Lowe PA Work Phone: [facility] 02-16-2024 08:59-0400 Systolic blood pressure 118 mm[Hg] Missy Lowe PA Work Phone: [facility] 02-01-2024 13:07-0400 Body height 162.6 cm Luc Ham MD Work Phone: [facility] 02-01-2024 13:07-0400 Body mass index (BMI) [Ratio] 29.52 kg/m2 Luc Ham MD Work Phone: [facility] 02-01-2024 13:07-0400 Body weight 78.02 kg Luc Ham MD Work Phone: [facility] 02-01-2024 13:07-0400 Diastolic blood pressure 71 mm[Hg] Luc Ham MD Work Phone: [facility] 02-01-2024 13:07-0400 Systolic blood pressure 101 mm[Hg] Luc Ham MD Work Phone: [facility] 10-21-2023 14:32-0400 Blood Pressure Location Wiley Sarmini [facility] 10-21-2023 14:32-0400 Diastolic blood pressure 64 mm[Hg] Wiley Sarmini [facility] 10-21-2023 14:32-0400 Heart rate 73 /min Wiley Sarmini [facility] 10-21-2023 14:32-0400 Respiratory rate 18 /min Wiley Sarmini [facility] 10-21-2023 14:32-0400 Systolic blood pressure 130 mm[Hg] Wiley Sarmini [facility] 09-17-2023 08:58-0400 Blood Pressure Location Anjali Ruby [facility] 09-17-2023 08:58-0400 Body temperature 97.34 [degF] Anjali Ruby [facility] 09-17-2023 08:58-0400 Diastolic blood pressure 66 mm[Hg] Anjlai Ruby [facility] 09-17-2023 08:58-0400 Heart rate 66 /min Anjali Ruby [facility] 09-17-2023 08:58-0400 Systolic blood pressure 123 mm[Hg] Anjali Ruby [facility] 09-02-2023 13:28-0400 Body height 167.64 cm [facility] 09-02-2023 13:28-0400 Body mass index (BMI) [Ratio] 28 kg/m2 [facility] 09-02-2023 [id number] Body weight 78.69 kg [facility] 09-02-2023 13:28-0400 Diastolic blood pressure 61 mm[Hg] [facility] 09-02-2023 13:28-0400 Heart rate 67 /min [facility] 09-02-2023 13:28-0400 SaO2% (BldA) [Mass fraction] 95 % [facility] 09-02-2023 13:28-0400 Systolic blood pressure 113 mm[Hg] [facility] 07-27-2023 10:23-0400 Body height 167.64 cm [facility] 07-27-2023 10:23-0400 Body mass index (BMI) [Ratio] 27.5 kg/m2 [facility] 07-27-2023 10:23-0400 Body temperature 97.9 [degF] [facility] 07-27-2023 10:23-0400 Body weight 77.28 kg [facility] 07-27-2023 10:23-0400 Diastolic blood pressure 66 mm[Hg] [facility] 07-27-2023 10:23-0400 Heart rate 86 /min [facility] 07-27-2023 10:23-0400 Respiratory rate 18 /min [facility] 07-27-2023 10:23-0400 SaO2% (BldA) [Mass fraction] 97 % [facility] 07-27-2023 10:23-0400 Systolic blood pressure 121 mm[Hg] [facility] 05-31-2023 13:30-0500 Body height 167.64 cm Gisele Brunson Other [facility] Other 05-31-2023 13:30-0500 Body mass index (BMI) [Ratio] 27.6 kg/m2 Gisele Brunson Other [facility] Other 05-31-2023 13:30-0500 Body weight 77.57 kg Gisele Brunson Other [facility] Other 05-31-2023 13:30-0500 Diastolic blood pressure 55 mm[Hg] Gisele Brunson Other [facility] Other 05-31-2023 13:30-0500 SaO2% (BldA) [Mass fraction] 94 % Gisele Brunson Other [facility] Other 05-31-2023 13:30-0500 Systolic blood pressure 104 mm[Hg] Gisele Brunson Other [facility] Other 05-25-2023 12:21-0500 Blood Pressure Location Anjalijane StaffordFlori [facility] 05-25-2023 12:21-0500 Diastolic blood pressure 65 mm[Hg] Anjali Staffordmetz [facility] 05-25-2023 12:21-0500 Heart rate 88 /min Anjalijane StaffordFlori [facility] 05-25-2023 12:21-0500 Respiratory rate 16 /min Anjali Flori [facility] 05-25-2023 12:21-0500 Systolic blood pressure 113 mm[Hg] Anjali Staffordmetz [facility] 04-01-2023 13:15-0500 Body temperature 97.11 [degF] Vaishali Pringle MD Work Phone: [facility] 04-01-2023 13:15-0500 Body weight 75.75 kg Vaishali Pringle MD Work Phone: [facility] 04-01-2023 13:15-0500 Diastolic blood pressure 66 mm[Hg] Vaishali Pringle MD Work Phone: [facility] 04-01-2023 13:15-0500 Heart rate 70 /min Vaishali Pringle MD Work Phone: [facility] 04-01-2023 13:15-0500 SaO2% (BldA) [Mass fraction] 97 % Vaishali Pringle MD Work Phone: [facility] 04-01-2023 13:15-0500 Systolic blood pressure 109 mm[Hg] Vaishali Pringle MD Work Phone: [facility] 03-10-2023 08:53-0400 Blood Pressure Location Anjali Flori [facility] 03-10-2023 08:53-0400 Body temperature 97.16 [degF] Anjali Ruby [facility] 03-10-2023 08:53-0400 Diastolic blood pressure 72 mm[Hg] Anjali Staffordmetz [facility] 03-10-2023 08:53-0400 Heart rate 63 /min Anjali Staffordmetz [facility] 03-10-2023 08:53-0400 Systolic blood pressure 117 mm[Hg] Anjali Staffordmetz [facility] 02-25-2023 13:27-0400 Blood Pressure Location Anjali Staffordmetz [facility] 02-25-2023 13:27-0400 Body temperature 98.06 [degF] Anjali Ruby [facility] 02-25-2023 13:27-0400 Diastolic blood pressure 75 mm[Hg] Anjali Ruby [facility] 02-25-2023 13:27-0400 Heart rate 85 /min Anjali Ruby [facility] 02-25-2023 13:27-0400 Respiratory rate 16 /min Anjali Ruby [facility] 02-25-2023 13:27-0400 Systolic blood pressure 122 mm[Hg] Anjali Ruby [facility] 01-29-2023 10:15-0400 Body height 167.64 cm Gisele Brunson Other [facility] Other 01-29-2023 10:15-0400 Body mass index (BMI) [Ratio] 28.24 kg/m2 Gisele Brunson Other [facility] Other 01-29-2023 10:15-0400 Body weight 79.38 kg Gisele Brunosn Other [facility] Other 01-29-2023 10:15-0400 Diastolic blood pressure 75 mm[Hg] Gisele Brunson Other [facility] Other 01-29-2023 10:15-0400 SaO2% (BldA) [Mass fraction] 95 % Gisele Brunson Other [facility] Other 01-29-2023 10:15-0400 Systolic blood pressure 118 mm[Hg] Gisele Brunson Other [facility] Other 01-12-2023 09:22-0400 Blood Pressure Location Anjali Ruby [facility] 01-12-2023 09:22-0400 Body temperature 96.98 [degF] Anjali Ruby [facility] 01-12-2023 09:22-0400 Diastolic blood pressure 68 mm[Hg] Anjali Ruby [facility] 01-12-2023 09:22-0400 Heart rate 69 /min Anjali Ruby [facility] 01-12-2023 09:22-0400 Systolic blood pressure 109 mm[Hg] Anjali Ruby [facility] 10-13-2022 09:45-0400 Body height 167.64 cm Gisele Brunson Other [facility] Other 10-13-2022 09:45-0400 Body mass index (BMI) [Ratio] 27.92 kg/m2 Gisele Brunson Other [facility] Other 10-13-2022 09:45-0400 Body weight 78.47 kg Gisele Brunson Other [facility] Other 10-13-2022 09:45-0400 Diastolic blood pressure 70 mm[Hg] Gisele Brunson Other [facility] Other 10-13-2022 09:45-0400 SaO2% (BldA) [Mass fraction] 95 % Gisele Brunson Other [facility] Other 10-13-2022 09:45-0400 Systolic blood pressure 116 mm[Hg] Gisele Brunson Other [employer] Other 09-22-2022 18:14-0400 Body temperature 99.86 [degF] Gordy Sánchez [facility] 09-22-2022 16:28-0400 Body temperature 101.3 [degF] Gordy Sánchez [facility] 09-22-2022 16:28-0400 Diastolic blood pressure 61 mm[Hg] Gordy Sánchez [facility] 09-22-2022 16:28-0400 Heart rate 79 /min Gordy Sánchez [facility] 09-22-2022 16:28-0400 Respiratory rate 17 /min Gordy Sánchez [facility] 09-22-2022 16:28-0400 SaO2% (BldA) [Mass fraction] 93 % Gordy Sánchez [facility] 09-22-2022 16:28-0400 Systolic blood pressure 111 mm[Hg] Gordy Sánchez [facility] 09-22-2022 14:10-0400 Body height 167.64 cm Griselda Murphymond Other [employer] Other 09-22-2022 14:10-0400 Body mass index (BMI) [Ratio] 29.7 kg/m2 Griselda Aditi Other [employer] Other 09-22-2022 14:10-0400 Body temperature 100 [degF] Griselda Aditi Other [employer] Other 09-22-2022 14:10-0400 Body weight 83.46 kg Griselda Aditi Other [employer] Other 09-22-2022 14:10-0400 Respiratory rate 18 /min Griselda Pennington Other [employer] Other 09-22-2022 14:10-0400 SaO2% (BldA) [Mass fraction] 93 % Griselda Pennington Other [employer] Other 07-29-2022 10:15-0400 Body height 167.64 cm Erwin Salazar Other [employer] Other 07-29-2022 10:15-0400 Body mass index (BMI) [Ratio] 30.02 kg/m2 Erwin Salazar Other [employer] Other 07-29-2022 10:15-0400 Body weight 84.37 kg Erwin Salazar Other [employer] Other 07-29-2022 10:15-0400 Diastolic blood pressure 65 mm[Hg] Erwin Salazar Other [employer] Other 07-29-2022 10:15-0400 SaO2% (BldA) [Mass fraction] 94 % Erwin Salazar Other [employer] Other 07-29-2022 10:15-0400 Systolic blood pressure 102 mm[Hg] Erwin Salazar Other [employer] Other 11-29-2021 10:25-0400 Body height 167.64 cm Leti Garcia Other [employer] Other 11-29-2021 10:25-0400 Body temperature 96.9 [degF] Leti Garcia Other [employer] Other 11-29-2021 10:25-0400 Respiratory rate 18 /min Leti Garcia Other [employer] [facility] [employer] Other 11-29-2021 10:25-0400 SaO2% (BldA) [Mass fraction] 93 % Leti Garcia Other [employer] Other Encounters Encounter Date Encounter Type Care Provider Facility Start: 02-09-2025 ambulatory CORIN SCHMIDT [facility] Start: 02-06-2025 End: 02-06-2025 ambulatory [facility] Start: 01-18-2025 End: 01-18-2025 Office outpatient visit 15 minutes Veena H Itzkowitz DO Work Phone: [facility] Comment on above: Esophageal dysphagia (Primary Dx) Start: 01-18-2025 End: 01-18-2025 ambulatory VEENA H ITZKOWITZ Not Available Start: 01-08-2025 End: 01-08-2025 Office outpatient visit 15 minutes Veena H Itzkowitz DO Work Phone: [facility] [employer] Comment on above: Esophageal dysphagia (Primary Dx); Carcinoma of oropharynx (HCC) Start: 01-08-2025 End: 01-08-2025 ambulatory VEENA H ITZKOWITZ Not Available Start: 12-26-2024 Registered Recurring d Ramin Faustin MD -[facility] Work Phone: Start: 12-26-2024 End: 12-26-2024 ambulatory Demetrius Cooper MD Work Phone: [facility] Work Phone: Start: 12-26-2024 End: 12-26-2024 Patient encounter procedure Becky Ramos Shimonrey RAYSHAWN -[facility] Amb[facility] Work Phone: Start: 12-13-2024 ambulatory [facility] Start: 12-11-2024 End: 12-11-2024 Office outpatient visit 15 minutes Mary Schneider MD Work Phone: [facility] Comment on above: 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); G tube feedings (Multi); At risk for malnutrition Start: 12-11-2024 End: 12-11-2024 ambulatory MARY SCHNEIDER [facility] Start: 12-05-2024 End: 12-05-2024 ambulatory STACEY [facility] Start: 11-27-2024 End: 11-27-2024 ambulatory Demetrius Cooper Facility:[facility] Start: 11-23-2024 Registered Recurring Talib Faustin MD -[facility] Work Phone: Start: 11-23-2024 End: 11-23-2024 ambulatory Demetrius Cooper MD Work Phone: [facility] Work Phone: Start: 11-23-2024 End: 11-23-2024 Patient encounter procedure Talib Faustin MD -[facility] Work Phone: Start: 11-23-2024 End: 11-23-2024 Patient encounter procedure Debora Campbell [facility] Start: 11-23-2024 End: 11-23-2024 ambulatory Demetrius Cooper MD Work Phone: [facility] Work Phone: Start: 11-23-2024 Non-patient / Non-visit Robina Campbell [facility] Work Phone: Start: 11-21-2024 End: 11-21-2024 ambulatory Demetrius Cooper Facility:[facility] Start: 2024 End: 2024 ambulatory MD Demetrius Cooper Facility:[facility] Start: 10-12-2024 End: 10-12-2024 ambulatory MD Demetrius Cooper Facility:[facility] Start: 10-11-2024 End: 10-11-2024 Postop follow up [...] center Veena Adkins DO -[facility] [place] Start: 10-03-2024 End: 10-03-2024 ambulatory Demetrius Cooper Facility:[facility] Start: 09-28-2024 End: 09-28-2024 ambulatory MD Demetrius Cooper Facility:[facility] Start: 09-28-2024 End: 09-28-2024 Bamboo flowsheet [...] 09-26-2024 ambulatory Demetrius Cooper MD Work Phone: [facility] Work Phone: Start: 09-26-2024 End: 09-26-2024 Patient encounter procedure Demetrius Cooper MD Work Phone: [facility] Work Phone: Start: 09-25-2024 Registered Recurring Demetrius gardiner MD [facility] Work Phone: Start: 09-20-2024 End: 09-20-2024 Emergency department patient visit Demetrius Cooper MD Work Phone: [facility]-Emergency Room Work Phone: Start: 09-14-2024 End: 09-14-2024 ambulatory MD Demetrius Cooper Facility:[facility] Start: 09-11-2024 End: 09-11-2024 Office outpatient visit 15 minutes Mary Schneider MD Work Phone: [facility] Comment on above: 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); Dysphagia, unspecified type Start: 09-11-2024 End: 09-11-2024 ambulatory MARY SCHNEIDER [facility] Start: 09-11-2024 End: 09-11-2024 Patient encounter procedure Demetrius Cooper MD Work Phone: [facility] Work Phone: Start: 09-07-2024 Registered Recurring Demetrius gardiner MD [facility] Phone[facility] Work Phone: Start: 09-07-2024 End: 09-07-2024 Patient encounter procedure Demetrius Cooper MD Work Phone: [facility] Work Phone: Start: 09-04-2024 End: 09-04-2024 ambulatory [facility] Start: 08-30-2024 End: 08-30-2024 Lab Drop off Demetrius Cooper [facility] Start: 08-30-2024 End: 08-30-2024 ambulatory Demetrius Cooper Facility[facility] Start: 08-24-2024 End: 08-24-2024 ambulatory Demetrius Cooper Facility:[facility] Start: 08-23-2024 End: 08-23-2024 Patient encounter procedure Demetrius Cooper MD Work Phone: [facility] Work Phone: Start: 08-22-2024 End: 09-25-2024 ambulatory Demetrius Cooper Facility:CD:[id number] Start: 08-21-2024 Non-patient / Non-visit Demetrius Cooper MD Work Phone: [facility] Work Phone: Start: 08-21-2024 Non-patient / Non-visit Demetrius Cooper MD Work Phone: [facility] Health Infect Dis Work Phone: Start: 08-21-2024 ambulatory Demetrius Cooper Facility: [facility] Start: 08-20-2024 End: 08-21-2024 Evaluation and management of inpatient Demetrius Cooper MD Work Phone: [facility] [place] [facility] Work Phone: Start: 08-18-2024 Registered Recurring Demetrius gardiner MD Work Phone: [facility] [place] [facility] Work Phone: Start: 08-17-2024 Non-patient / Non-visit Demetrius Cooper MD Work Phone: [facility] Work Phone: Start: 08-17-2024 ambulatory Dennis Cline Isaac Melvin lity:[facility] Start: 08-17-2024 Registered Recurring Demetrius gardiner MD Work Phone: [facility] Start: 08-16-2024 Non-patient / Non-visit Demetrius Cooper MD Work Phone: [facility] Work Phone: Start: 08-16-2024 Registered Recurring Demetrius gardiner MD Work Phone: [facility] Work Phone: Start: 08-16-2024 End: 08-16-2024 Patient encounter procedure Demetrius Cooper MD Work Phone: [facility] Start: 08-16-2024 End: 08-16-2024 ambulatory Demetrius Cooper MD Work Phone: [facility] Work Phone: Start: 08-14-2024 Non-patient / Non-visit Demetrius Cooper MD Work Phone: [facility] Start: 08-10-2024 Non-patient / Non-visit Demetrius Cooper MD Work Phone: [facility] Work Phone: Start: 08-10-2024 Registered Recurring Demetrius gardiner MD Work Phone: [facility] Start: 08-09-2024 End: 08-09-2024 Patient encounter procedure Demetrius Cooper MD Work Phone: [facility] Work Phone: Start: 08-09-2024 Non-patient / Non-visit Demetrius Cooper MD Work Phone: [facility] Physician [facility] Work Phone: Start: 08-09-2024 End: 08-09-2024 Patient encounter procedure [facility]rius Cooper [facility] Start: 08-09-2024 End: 08-09-2024 ambulatory Demetrius Cooper MD Work Phone: [facility] Work Phone: Start: 08-07-2024 Non-patient / Non-visit Demetrius Cooper MD Work Phone: [facility] Work Phone: Start: 08-03-2024 Registered Recurring Demetrius gardiner MD [facility] Phone: [facility] [place] Start: 08-03-2024 Non-patient / Non-visit Demetrius Cooper MD Work Phone: [facility] Work Phone: Start: 08-02-2024 Non-patient / Non-visit Demetrius Cooper MD [facility] Start: 08-02-2024 End: 08-02-2024 Patient encounter procedure [facility]etrius Cooper [facility]: [facility] Start: 08-02-2024 End: 08-02-2024 ambulatory Demetrius Cooper MD Work Phone: [facility] Work Phone: Start: 07-31-2024 Non-patient / Non-visit Demetrius Cooper MD Work Phone: [facility] Work Phone: Start: 07-27-2024 Registered Recurring Demetrius gardiner MD [facility] Phone: [facility] [place] Start: 07-27-2024 Non-patient / Non-visit Demetrius Cooper MD Work Phone: [facility] Work Phone: Start: 07-26-2024 End: 07-26-2024 ambulatory MATTEO JAMESPolina Bell Not Available Start: 07-26-2024 Registered Recurring Demetrius gardiner MD Work Phone: [facility] [place] [facility] Work Phone: Start: 07-26-2024 Non-patient / Non-visit Demetrius Cooper MD Work Phone: [facility] Work Phone: Start: 07-26-2024 End: 07-26-2024 Departed Referred Demetrius Cooper MD Work Phone: [facility] Start: 07-26-2024 End: 07-26-2024 ambulatory Demetrius Cooper MD Work Phone: [facility] Work Phone: Start: 07-26-2024 End: 07-26-2024 Patient encounter procedure Demetrius Cooper MD Work Phone: [facility] Work Phone: Start: 07-26-2024 Non-patient / Non-visit Demetrius Cooper MD Work Phone: [facility] Start: 07-24-2024 Non-patient / Non-visit Demetrius Cooper MD Work Phone: [facility] Work Phone: Start: 07-21-2024 ambulatory Mary Ordoñez y:[facility] Start: 07-20-2024 Registered Recurring Demetrius gardiner MD Work Phone: [facility] [place] Start: 07-20-2024 Non-patient / Non-visit Demetrius Cooper MD Work Phone: [facility] Work Phone: Start: 07-20-2024 End: 07-20-2024 Patient encounter procedure Demetrius Cooper MD Work Phone: [facility] Work Phone: Start: 07-19-2024 End: 07-19-2024 ambulatory [facility] Start: 07-19-2024 Non-patient / Non-visit Demetrius Cooper MD Work Phone: [facility] Start: 07-19-2024 End: 07-19-2024 Departed Referred Demetrius Cooper MD Work Phone: [facility] Start: 07-19-2024 End: 07-19-2024 Patient encounter procedure Demetrius Cooper MD Work Phone: [facility] Start: 07-19-2024 End: 07-19-2024 ambulatory Debora Wild Facility:[facility] Start: 07-17-2024 End: 07-17-2024 External Result Encounter Matteo Melo MD Work Phone: [facility] External Department Unsolicited Start: 07-17-2024 End: 07-17-2024 External Result Encounter Matteo Bell MD Work Phone: [facility] External Department Unsolicited Start: 07-17-2024 Registered Recurring Demetrius gardiner MD Work Phone: [facility] Work Phone: Start: 07-17-2024 End: 07-17-2024 Admission to same day surgery center Demetrius Cooper MD Work Phone: [facility] [place] Start: 07-17-2024 End: 07-17-2024 ambulatory Demetrius Cooper MD Work Phone: [facility] Work Phone: Start: 07-17-2024 Non-patient / Non-visit Demetrius Cooper MD Work Phone: [facility] Work Phone: Start: 07-13-2024 Non-patient / Non-visit Demetrius Cooper MD Work Phone: [facility] Work Phone: Start: 07-12-2024 Non-patient / Non-visit Demetrius Cooper MD Work Phone: [facility] Start: 07-12-2024 Registered Recurring Demetrius gardiner MD Work Phone: [facility] Work Phone: Start: 07-12-2024 Non-patient / Non-visit Demetrius Cooper MD Work Phone: [facility] Work Phone: Start: 07-12-2024 End: 07-12-2024 Patient encounter procedure Demetrius Cooper MD Work Phone: [facility] Work Phone: Start: 07-12-2024 End: 07-12-2024 ambulatory Demetrius Cooper MD Work Phone: [facility] Work Phone: Start: 07-10-2024 Non-patient / Non-visit Demetrius Cooper MD Work Phone: [facility] Work Phone: Start: 07-10-2024 End: 07-10-2024 ambulatory [facility] Start: 07-06-2024 Non-patient / Non-visit Demetrius Cooper MD Work Phone: [facility] Work Phone: Start: 07-06-2024 Non-patient / Non-visit Demetrius Cooper MD Work Phone: [facility] Start: 07-06-2024 Non-patient / Non-visit Demetrius Cooper MD Work Phone: [facility] Phys[facility] Work Phone: Start: 07-06-2024 End: 07-06-2024 Departed Referred Demetrius Cooper MD Work Phone: [facility] Start: 07-06-2024 End: 07-06-2024 Patient encounter procedure Demetrius Cooper MD Work Phone: [facility] Start: 07-06-2024 End: 07-06-2024 ambulatory Demetrius Copoer MD Work Phone: [facility] Work Phone: Start: 07-05-2024 Non-patient / Non-visit Demetrius Cooper MD Work Phone: [facility] Work Phone: Start: 07-04-2024 End: 07-04-2024 ambulatory Demetrius Cooper Facility:[facility] Start: 07-03-2024 End: 07-03-2024 Lab Drop off Mhd Ramin Faustin [facility] Start: 07-03-2024 End: 07-03-2024 Departed Referred Demetrius Cooper MD [facility] Phone: [facility] [place] Start: 07-03-2024 End: 07-03-2024 Lab Drop off Demetrius Cooper [facility] Start: 07-03-2024 End: 07-03-2024 ambulatory Demetrius Cooper Facility:[facility] Start: 06-23-2024 End: 06-23-2024 Patient encounter procedure Isabel Romano AUD Work Phone: [facility] Comment on above: Sensorineural hearin g loss, bilateral (Primary Dx); Tinnitus, bilateral Start: 06-23-2024 End: 06-23-2024 ambulatory ISABEL ROMANO Not Available Start: 06-23-2024 End: 06-23-2024 Bamboo flowsheet Isabel Romano AUD Work Phone: [facility] Start: 06-23-2024 End: 06-23-2024 Bamboo flowsheet Isabel Romano AUD Work Phone: [facility] Start: 06-22-2024 End: 06-22-2024 Patient encounter procedure Demetrius Cooper MD Work Phone: [facility] Work Phone: Start: 06-22-2024 End: 06-22-2024 ambulatory Demetrius Cooper MD Work Phone: [facility] Work Phone: Start: 06-22-2024 Encounter for preprocedural laboratory examination Matteo Melo [facility] Start: 06-22-2024 End: 06-22-2024 External Result Encounter Matteo Melo MD Work Phone: [facility] External Department Unsolicited Start: 06-22-2024 End: 06-22-2024 External Result Encounter Matteo Bell MD Work Phone: [facility] External Department Unsolicited Start: 06-20-2024 End: 06-20-2024 Office outpatient new 45 minutes Matteo Melo MD Work Phone: [facility] Comment on above: Poor intravenous acc ess (Primary Dx); Carcinoma of oropharynx (CMS/HCC) Start: 06-20-2024 End: 06-20-2024 ambulatory MATTEO MELO V Not Available Start: 06-20-2024 Non-patient / Non-visit Demetrius Cooper MD Work Phone: [facility] Amb[facility] Work Phone: Start: 06-20-2024 Registered Recurring Demetrius gardiner MD Work Phone: [facility] Work Phone: Start: 06-14-2024 End: 06-14-2024 ambulatory Demetrius Cooper MD Work Phone: [facility] Work Phone: Start: 06-14-2024 End: 06-14-2024 Patient encounter procedure Demetrius Cooper MD Work Phone: [facility] Work Phone: Start: 06-14-2024 Registered Recurring Demetrius gardiner MD Work Phone: [facility] Work Phone: Start: 06-14-2024 End: 06-14-2024 ambulatory Demetrius Cooper MD Work Phone: [facility] Work Phone: Start: 06-14-2024 End: 06-14-2024 Patient encounter procedure Demetrius Cooper MD Work Phone: [facility] Work Phone: Start: 06-06-2024 End: 06-06-2024 ambulatory [facility] Start: 06-05-2024 End: 06-05-2024 Subsequent hospital visit by physician 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); Metastasis to cervical lymph node Start: 05-30-2024 End: 05-30-2024 ambulatory MARY Tripp [facility] Start: 05-15-2024 End: 05-15-2024 Subsequent hospital visit by physician Rad External Film EF [facility] [employer] Comment on above: Arrived Start: 05-15-2024 End: 05-15-2024 ambulatory MARY Tripp [facility] Start: 05-11-2024 End: 05-11-2024 Subsequent hospital visit by physician Mary Schneider MD Work Phone: [facility] [place] Comment on above: 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); Acute postoperative pain Start: 04-26-2024 Evaluation and management of inpatient MARY Tripp [facility] Start: 04-25-2024 End: 04-25-2024 ambulatory [facility] Start: 04-18-2024 ambulatory MARY SCHNEIDER [facility] Start: 04-17-2024 End: 04-17-2024 Lab Drop off Demetrius Cooper [facility] Start: 04-17-2024 End: 04-17-2024 ambulatory Demetrius Cooper Facility:[facility] Start: 04-11-2024 End: 04-11-2024 ambulatory MARY Tripp [facility] Start: 04-11-2024 End: 04-11-2024 Encounter for other preprocedural examination MARY Tripp [facility] Start: 04-11-2024 End: 04-11-2024 Encounter for preprocedural cardiovascular examination MARY Tripp [facility] Start: 04-11-2024 End: 04-11-2024 Encounter for preprocedural respiratory examination MARY Tripp [facility] Start: 04-07-2024 End: 04-07-2024 Office outpatient new 45 minutes Mary Schneider MD Work Phone: [facility] Comment on above: 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); Oral lesion; Malignant neoplasm of floor of mouth Start: 04-07-2024 End: 04-07-2024 ambulatory MARY Tripp [facility] Start: 03-29-2024 End: 03-29-2024 Bamboo flowsheet Luc [...] Start: 03-27-2024 End: 03-27-2024 ambulatory LUC HAM Facility:[facility] Start: 03-27-2024 End: 03-27-2024 Subsequent hospital visit by physician Arrival Time Radiology Work Phone: Radiology [facility] Start: 03-23-2024 End: 03-23-2024 ambulatory Wiley Taleddie Bautistapaty Facility:[facility] Start: 03-23-2024 End: 03-23-2024 Patient encounter procedure Wiley Talal Lilymini [facility] Start: 03-08-2024 End: 03-08-2024 Bamboo [...] 02-29-2024 ambulatory MD Demetrius Cooper Work Phone: [facility] Work Phone: Start: 02-29-2024 End: 02-29-2024 Departed Referred MD Demetrius Cooper Work Phone: [facility] Start: 02-16-2024 End: 02-16-2024 Office outpatient visit 25 minutes Luc Ham MD Work Phone: [facility] Comment on above: LAD (lymphadenopathy ) of right cervical region (Primary Dx) Start: 02-16-2024 End: 02-16-2024 ambulatory LUC H TIMMIS Not Available Start: 02-16-2024 End: 02-16-2024 Bamboo flowsheet Missy Lowe PA Work Phone: [facility] [email or web address] [facility] Start: 02-16-2024 End: 02-16-2024 Bamboo flowsheet Missy Lowe PA Work Phone: [facility] [address] Start: 02-16-2024 End: 02-16-2024 Office outpatient visit 15 minutes Missy Lowe PA Work Phone: [facility] [email or web address] [facility] Comment on above: Migraine without aur [...] Start: 01-10-2024 End: 01-10-2024 ambulatory Demetrius Cooper Facility:[facility] Start: 11-09-2023 End: 11-09-2023 Patient encounter procedure Wiley Talal Sarmini [facility] Start: 10-21-2023 End: 10-21-2023 Patient encounter procedure Wiley Talal Sarmini [facility] Start: 09-17-2023 End: 09-17-2023 Patient encounter procedure Anjali Ruby [facility] Start: 09-02-2023 End: 09-02-2023 ambulatory [facility] Work Phone: Start: 09-02-2023 End: 09-02-2023 Patient encounter procedure [facility] Phys[facility] Sleep [facility] Work Phone: Start: 07-27-2023 End: 07-27-2023 Patient encounter procedure Formerly [facility], [facility] [place] Work Phone: Start: 05-31-2023 Office outpatient vi sit 25 minutes Gisele Brunson [facility] Start: 05-31-2023 End: 05-31-2023 ambulatory MD Demetrius Cooper Work Phone: [facility] Work Phone: Start: 05-31-2023 End: 05-31-2023 Patient encounter procedure MD Demetrius Cooper Work Phone: [facility]-Sleep Lab Work Phone: Start: 05-25-2023 End: 05-25-2023 Patient encounter procedure Anjali Ruby [facility] Start: 04-05-2023 Telephone encounter Vaishali orr MD Work Phone: General Surgery Comment on above: Received Outside Med ical Records Start: 04-01-2023 End: 04-01-2023 ambulatory VAISHALI PRINGLE Facility:[facility] Start: 04-01-2023 End: 04-01-2023 Patient encounter procedure Vaishali Pringle MD Work Phone: General Surgery Comment on above: IPMN (intraductal pa pillary mucinous neoplasm) (Primary Dx) Start: 03-10-2023 End: 03-10-2023 Patient encounter procedure Anjali Ruby [facility] Start: 03-10-2023 End: 03-10-2023 Patient encounter procedure Anjali Staffordmetz [facility] Start: 02-25-2023 End: 02-25-2023 Patient encounter procedure Anjali Ruby [facility] Start: 02-16-2023 End: 02-16-2023 ambulatory MD Demetrius Cooper Work Phone: [facility] Work Phone: Start: 02-16-2023 End: 02-16-2023 Patient encounter procedure MD Demetrius Cooper Work Phone: [facility]-MRI [facility] [place] Work Phone: Start: 01-29-2023 Office [facility] vi [facility] Start: 01-29-2023 End: 01-29-2023 ambulatory MD Demetrius Cooper Work Phone: [facility] Work Phone: Start: 01-29-2023 End: 01-29-2023 Patient encounter procedure MD Demetrius Cooper Work Phone: [facility]-Sleep Lab Work Phone: Start: 01-27-2023 ambulatory Facility:[id number] Start: 01-27-2023 End: 01-27-2023 ambulatory MD Demetrius Cooper Work Phone: [facility] Work Phone: Start: 01-27-2023 End: 01-27-2023 Patient encounter procedure MD Demetrius Cooper Work Phone: [facility]-Pacemaker Check Start: 01-12-2023 End: 01-12-2023 Patient encounter procedure Anjali Ruby [facility] Start: 12-17-2022 End: 12-17-2022 Patient encounter procedure Anjali Ruby [facility] Start: 12-09-2022 End: 12-09-2022 ambulatory MD Demetrius Cooper Work Phone: [facility] Work Phone: Start: 12-09-2022 End: 12-09-2022 Patient encounter procedure MD Demetrius Cooper Work Phone: [facility]-Sleep Lab Work Phone: Start: 11-23-2022 End: 11-23-2022 Lab Drop off Demetrius Cooper [facility] Start: 10-13-2022 Office outpatient vi sit 15 minutes Gisele [facility] Start: 10-13-2022 End: 10-13-2022 ambulatory MD Mg London Work Phone: [facility] Work Phone: Start: 10-13-2022 End: 10-13-2022 Patient encounter procedure MD Mg London Work Phone: [facility]-Sleep Lab Work Phone: Start: 09-29-2022 End: 09-29-[address] EDY CARNEY Facility:H1 Start: 09-24-2022 End: 09-25-[address] MG LONDON Facility:H1 Start: 09-22-2022 End: 09-22-2022 Emergency department patient visit Gordy Sánchez [facility] Start: 09-22-2022 Office outpatient vi sit 15 minutes Griselda Pennington [facility] [place] Start: 09-22-2022 End: 09-22-2022 ambulatory NARENDRANATH LAKSHMIPATHY . [facility] Other Start: 08-25-2022 End: 08-26-2022 ambulatory NARENDRANATH LAKSHMIPATHY . Facility:H1 Start: 08-12-2022 ambulatory Facility:[id number] Start: 08-12-2022 End: 08-12-2022 ambulatory MD Mg London Work Phone: [facility] Work Phone: Start: 08-12-2022 End: 08-12-2022 Patient encounter procedure MD Mg London Work Phone: [facility] [place] Work Phone: Start: 08-11-2022 End: 08-11-2022 ambulatory EVERTMARY LEARYJOHNADRIANAKATERYNAY . Facility:H1 Start: 07-29-2022 Office outpatient ne w 60 minutes Erwin Salazar [facility] Start: 07-29-2022 End: 07-29-2022 ambulatory MD Mg London Work Phone: [facility] Work Phone: Start: 07-29-2022 End: 07-29-2022 Patient encounter procedure MD Mg London Work Phone: [facility]-Sleep Lab Work Phone: Start: 07-23-2022 End: 07-24-2022 ambulatory SONNY LAZO . Facility:H1 Start: 07-22-2022 End: 07-23-2022 [facility]ulatory [facility] Start: 07-21-2022 ambulatory Facility:[id number] Start: 07-21-2022 End: 07-21-2022 ambulatory MD Mg London Work Phone: [facility] Work Phone: Start: 07-21-2022 End: 07-21-2022 Patient encounter procedure MD Mg London Work Phone: [facility]-Pacemaker Check Start: 06-18-2022 End: 07-10-2022 ambulatory SONA COPPOLA Facility:H1 Start: 06-16-2022 End: 06-17-2022 ambulatory SONA COPPOLA Facility:H1 Start: 06-11-2022 End: 06-12-2022 ambulatory [facility] Start: 05-26-2022 End: 05-26-2022 Patient encounter procedure Dequan GALICIA [facility] Start: 04-16-2022 End: 04-17-[address] ERWIN FALCON Facility:H1 Start: 03-19-[address] AMANDA CLANCY . Faci lity:H1 Start: 03-12-2022 End: 03-13-2022 ambulatory ALANNA Araiza [facility] Facility:H1 Start: 03-10-2022 End: 03-11-2022 ambulatory DIEGO COYNE Facility:H1 Start: 03-06-2022 End: 03-07-[address] DOCTOR GOFF Facility:H1 Start: 12-25-2021 End: 12-26-2021 ambulatory SONNY LAZO . Facility:H1 Start: 12-01-2021 End: 12-02-2021 ambulatory ALANNA Rick [facility] Facility:H1 Start: 11-29-2021 End: 11-29-2021 ambulatory Leti Garcia Other [facility] Other Start: 11-29-2021 Office outpatient vi sit 15 minutes Leti Garcia [facility] [place] Start: 11-13-2021 End: 12-19-2021 ambulatory OSMAR JARQUIN Facility:H1 Start: 09-04-2020 End: 09-04-2020 Patient encounter procedure Param Cosme Work Phone: -[facility] [place] Start: 08-15-2020 End: 08-15-2020 Patient encounter procedure Param Cosme -Pacemaker Check Start: 08-30-2019 End: 08-31-2019 Patient encounter procedure E[facility]AB [facility] Facility:[facility] Procedures Date Procedure Procedure Detail [...] Phone: Start: 07-17-2024 Central venous cannula insertion Deemtrius Cooper MD Work Phone: Start: 07-17-2024 OR [...] on above: Performed By: #### CBC #### [facility] [address] [place] [address] Dr. Ramsey Sanchez Start: 05-20-2020 Esophagogastroduodenoscopy Dequan [...] procedure 06/08/2025 1:30 PM EST Office Visit [facility] [address] [facility] [address] [place] [address] [place] [address] [place], [place] [id number] [facility] Start: 04-11-2025 Creatinine measurement Creatinine Le kortney [facility] Start: 04-11-2025 Potassium measurement Potassium Leve l [facility] Start: 04-03-2025 End: 04-03-2025 Patient encounter procedure 04/03/2025 11:00 AM EST Office Visit LISANDRO TEMPLETON [address] [place] [phone] Missy Villarreal NP [address] [place] [address] LISANDRO NICOLETTE Start: 01-15-2025 Influenza vaccination Influenza Vacc ine (#1) [facility] Start: 12-26-2024 Patient referral [facility] Work Phone: Start: 12-11-2024 End: 12-11-2024 Patient encounter procedure 12/11/2024 10:00 AM EDT Office Visit [facility] [address] [place] [address] [place] [address] [place] [address] [facility] Start: 10-11-2024 End: 10-11-2024 Patient encounter procedure 10/11/2024 2:15 PM EDT Office Visit [facility] [address] [place] [phone] Veena Adkins DO [address] [place] [address] [address] [facility] Start: 10-03-2024 [facility] Start: 09-28-2024 End: 09-28-2024 Patient encounter procedure LISANDRO TEMPLETON Comment on above: Arrived Start: 08-29-2024 End: 08-29-2024 Patient encounter procedure VALENTÍN TEM[place] [address] Start: 08-21-2024 [facility] Start: 08-21-2024 Administration of prophylactic treatment [facility] Start: 08-21-2024 [facility] Start: 08-21-2024 [facility] Start: 08-20-2024 Referral to infectio us diseases physician [facility] Start: 08-20-2024 [facility] Start: 08-20-2024 CT [facility] Start: 08-20-2024 CT of chest without contrast CT chest wo con [facility] Start: 08-20-2024 Hospital admission [facility] Start: 08-20-2024 [facility] Start: 08-20-2024 Bacteria identified in Blood by Culture Blood Culture [facility] Start: 08-17-2024 [facility] Start: 08-09-2024 End: 08-09-2024 [facility] Start: 08-03-2024 End: 08-03-2024 [facility] Start: 08-03-2024 [facility] Start: 07-27-2024 [facility] Start: 07-26-2024 End: 07-26-2024 Patient encounter procedure 07/26/2024 10:15 AM EDT Office Visit [facility] [address] [facility] [address] [place] [address] Matteo Melo MD [address] [facility] [address] [place] [address] [facility] Start: 07-20-2024 [facility] Start: 07-20-2024 [facility] Start: 07-17-2024 [facility] Start: 07-13-2024 [facility] Start: 07-11-2024 End: 07-11-2024 Patient encounter procedure 07/11/2024 1:15 PM EST Office Visit [facility] [address] [place] [phone] Matteo Melo MD [address] [place] [address] [facility] Start: 07-06-2024 [facility] Start: 07-03-2024 Central venous cannu la insertion OR Infusaport Insertion/Removal (Not Applicable) [facility] Start: 06-30-2024 [facility] Start: 06-23-2024 End: 06-23-2024 Patient encounter procedure VALENTÍN PALUMBO Comment on above: Arrived Start: 06-14-2024 Patient referral [facility] Work Phone: Start: 06-05-2024 End: 06-05-2024 Patient encounter procedure 06/05/2024 1:00 PM EST Appointment [facility] [address] [place] [phone] [facility] Start: 05-30-2024 End: 05-30-2024 Telemedicine consultation with patient 05/30/2024 11:45 AM EST Telemedicine [facility] [address] [place] [address] [place] [address] [place] [address] [facility] Start: 05-11-2024 End: 05-11-2024 Brnchsc incl fluor gdnce dx w/cell washg spx 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 05/11/2024 7:17 AM EST [facility] [place] Start: 05-11-2024 End: 05-11-2024 Esophagoscopy flexible transoral diagnostic Esophagoscopy Malignant neoplasm of floor of mouth 05/11/2024 7:17 AM EST [facility] [place] Start: 05-11-2024 End: 05-11-2024 Glossectomy hemiglossectomy GLOSSECTOMY, ROBOT-ASSISTED, ORAL APPROACH Malignant neoplasm of floor of mouth 05/11/2024 7:17 AM EST [facility] [place] Start: 05-11-2024 End: 05-11-2024 Laryngoscopy w/wo tracheoscopy dx except Direct Laryngoscopy Malignant neoplasm of floor of mouth 05/11/2024 7:17 AM EST [facility] [place] Start: 05-11-2024 End: 05-11-2024 Tonsillectomy primary/secondary age 11/> Tonsillectomy Malignant neoplasm of floor of mouth 05/11/2024 7:17 AM EST [facility] [place] Start: 04-19-2024 Subsequent hospital visit by physician 04/19/2024 Hospital Encounter [facility] [place] [address] [place] [address] [place] [address] [place], [place] [id number] [facility] [place] Start: 04-07-2024 End: 04-07-2025 Request for Pre-Admission Testing Visit Request for Pre-Admission Testing Visit Procedures Routine Oral lesion Malignant neoplasm of floor of mouth Expected: 04/07/2024 (Approximate), Expires: 04/07/2025 [facility] Work Phone: Comment on above: Expected: 04/07/2024 (Approximate), Expires: 04/07/2025 Start: 03-08-2024 End: 03-08-2024 Patient encounter procedure [facility] Comment on above: Arrived Start: 02-16-2024 End: 02-16-2024 Patient encounter procedure 02/16/2024 2:30 PM EDT Office Visit [facility] [address] [facility] [address] [place] [phone] Lcu Ham MD [address] [place] [address] [facility] Start: 02-16-2024 End: 02-16-2024 Patient encounter procedure [facility] [address] Comment on above: Arrived Start: 02-01-2024 End: 02-01-2024 Patient encounter procedure 02/01/2024 1:10 PM EDT Office Visit [facility] [address] [place] [address] Luc Ham MD [address] [facility] [address] [place] [address] Arrived [facility] Comment on above: Arrived Start: 01-16-2024 Covid-19 Vaccine ( season) Covid-19 Vaccine ( season) [facility] Start: 01-16-2024 Covid-19 Vaccine ( season) Covid-19 Vaccine ( season) [facility] Start: 01-16-2024 Covid-19 Vaccine ( season) Covid-19 Vaccine ( season) [facility] Start: 01-16-2024 Influenza vaccination Influenza Vacc ine (#1) [facility] Start: 05-17-2023 Advance Directive Discussion Advance Directive Discussion [facility] Start: 01-15-2023 Covid-19 Vaccine ( season) Covid-19 Vaccine ( season) [facility] Start: 01-15-2023 Influenza vaccination Influenza Vacc ine (#1) [facility] Start: 11-12-2022 ambulatory Ambulatory Facility:H 1 Start: 05-17-2022 Advance Directive Discussion Advance Directive Discussion [facility] Start: 05-17-2022 Depression Assessment Depression Ass essment [facility] Start: 09-04-2020 MRI of right ankle MR ankle RT wo co n [facility] Start: 09-04-2020 XR pre/post mri xray XR pre/post mri xray [facility] Start: 01-30-2015 Pneumococcal Vaccine : 65+ (2 - PPSV23 or PCV20) Pneumococcal Vaccine: 65+ (2 - PPSV23 or PCV20) [facility] Start: 01-30-2015 Pneumococcal Vaccine : 65+ (2 of 2 - PPSV23 or PCV20) Pneumococcal Vaccine: 65+ (2 of 2 - PPSV23 or PCV20) [facility] Start: 10-29-2014 RSV High Risk: (Elde rly (60+) or Population) (1 - 1-dose 75+ series) RSV High Risk: (Elderly (60+) or Population) (1 - 1-dose 75+ series) [facility] Start: 10-29-2014 RSV Vaccine (1 - 1-d ose 75+ series) RSV Vaccine (1 - 1-dose 75+ series) [facility] Start: 1999 RSV Vaccine (1 - 1-d ose 60+ series) RSV Vaccine (1 - 1-dose 60+ series) [facility] Start: 10-29-1989 Shingrix Vaccine (1 of 2) Best grix Vaccine (1 of 2) [facility] Start: 10-29-1984 Diabetes Screening Diabetes Screenin g [facility] Start: 10-29-1961 DTaP/Tdap/Td Vaccine s (1 - Tdap) DTaP/Tdap/Td Vaccines (1 - Tdap) [facility] Start: 10-29-1958 Urine microalbumin profile DTa P,Tdap,Td Vaccine (1 - Tdap) [facility] Start: 10-29-1958 Urine screening for protein Diabetes: Urine Protein Screening [facility] Start: 10-29-1957 Anxiety Screening Anxiety Screening [facility] Start: 10-29-1957 Depression Screening Depression Scre ening [facility] Start: 10-29-1949 Glaucoma screening Diabetes: R etinopathy Screening [facility] Start: 1939 Annual wellness visit Welcome to Medicare Visit [facility] Start: 1939 Echocardiography E[address] [facility] Start: 1939 Hemoglobin A1c measurement Mary betes: Hemoglobin A1C [facility] Start: 1939 Lipid panel Lipid Panel [facility] Start: 1939 Medicare Annual Well ness Visit Medicare Annual Wellness Visit (AWV) [facility] Start: 1939 Urine screening for protein Diabetes: Urine Protein Screening [facility] End: 05-11-2024 Cardiac device check - Inpatient [facility] Service [facility] Work Phone: Comment on above: Once for 1 Occurrenc es starting 05/11/2024 until 05/11/2024 End: 05-11-2024 Cardiac device check - Surgery [facility] Work Phone: Comment on above: Once for 1 Occurrenc es starting 05/11/2024 until 05/11/2024 Comprehensive metabo lic 2000 panel - Serum or Plasma [facility] Comprehensive metabo lic 1999 panel - Serum or Plasma [facility] Comprehensive metabo lic 1999 panel - Serum or Plasma [facility] Comprehensive metabo lic 1999 panel - Serum or Plasma [facility] Comprehensive metabo lic 1999 panel - Serum or Plasma [facility] CT with contrast for radiotherapy planning [facility] CT with contrast for radiotherapy planning [facility] End: 05-11-2024 Glucose [Mass/volume] in Serum or Plasma POCT Glucose Point of Care Testing - Docked Device Routine Once (Lab) for 1 Occurrences starting 05/11/2024 until 05/11/2024 [facility] Work Phone: Comment on above: Once (Lab) for 1 Occ urrences starting 05/11/2024 until 05/11/2024 Laryngoscopy w/wo tracheoscopy dx except Direct Laryngoscopy Oral lesion Malignant neoplasm of floor of mouth [facility] End: 03-02-2025 MR Biliary ducts and Pancreatic duct WO and W contrast IV MRI PANC/TRISH WO/W IVCON Radiology Routine IPMN (intraductal papillary mucinous neoplasm) 1 Occurrences starting 02/01/2024 until 03/02/2025 [facility] Work Phone: Comment on above: 1 Occurrences starti ng 02/01/2024 until 03/02/2025 End: 03-02-2025 MR Unspecified body region 3D post processing MRI 3D POST PROCESSING Radiology Routine IPMN (intraductal papillary mucinous neoplasm) 1 Occurrences starting 02/01/2024 until 03/02/2025 [facility] Comment on above: 1 Occurrences starti ng 02/01/2024 until 03/02/2025 Patient Education [facility] Work Phone: Patient referral [facility] Work Phone: Surgical pathology study Surgica l Pathology Exam Pathology and Cytology Routine Oral lesion 04/07/2024 11:37 AM EST [facility] Work Phone: Surgical pathology study [facility] Service Area Work Phone: Comment on above: Release Upon Orderin g for 1 Occurrences starting 05/11/2024, 1 completed End: 06-05-2024 Surgical pathology study [facility] Service [facility] Work Phone: Comment on above: Once (Lab) for 1 Occ urrences starting 06/05/2024 until 06/05/2024, 1 completed [facility] Immunizations Immunization Date Immunization Notes Care Provider Fa cili 04-17-2024 influenza, high dose seasonal, preservative-free; Translations: [Fluzone High Dose Vaccine] Demetrius Cooper [facility] [place] 04-17-2024 influenza virus vaccine, unspecified formulation Mary Schneider MD Work Phone: [facility] Work Phone: 02-09-2024 zoster vaccine recombinant Wiley Sarmini [facility] 11-22-2023 pneumococcal 20-reta nt conjugate vaccine Wiley Sarmini [facility] 11-22-2023 zoster vaccine recombinant Wiley Sarmini [facility] 04-28-2023 COVID-19 (PFIZER) 12Y and older Demetrius Cooper MD Work Phone: [facility] 04-12-2023 influenza virus vaccine, unspecified formulation Anjali Ruby [facility] 11-25-2021 Pfizer Haque Cap SARS-CoV-2 Vaccination Luc Ham MD Work Phone: [facility] 11-25-2021 SARS-CoV-2 mRNA (fdizlsnmlcp-nnjq-dbpp ose) vaccine Demetrius Cooper [facility] 11-25-2021 SARS-CoV-2, Unspecified Missy PEMBERTON Work Phone: [facility] 03-06-2021 SARS-CoV-2 (COVID-19 ) mRNA BNT-162b2 vax Demetrius Cooper [facility] Comment on above: Result Comment: 2022: [id number] 03-06-2021 SARS-CoV-2, Unspecified Luc Ham MD Work Phone: [facility] 02-18-2021 influenza virus vaccine, unspecified formulation Demetrius Cooper [facility] 02-18-2021 Influenza, injectabl e, Madin Mireya Canine Kidney, preservative free, quadrivalent Luc Ham MD Work Phone: [facility] 06-27-2020 SARS-CoV-2 (COVID-19 ) Ad26 vaccine, recombinant Dequan GALICIA [facility] 06-27-2020 SARS-CoV-2 (COVID-19 ) mRNA BNT-162b2 vax Dequan GALICIA [facility] 06-27-2020 SARS-CoV-2, Unspecified Luc Ham MD Work Phone: [facility] 06-06-2020 SARS-CoV-2 (COVID-19 ) Ad26 vaccine, recombinant Dequan GALICIA [facility] 06-06-2020 SARS-CoV-2 (COVID-19 ) mRNA BNT-162b2 vax Dequan GALICIA [facility] 06-06-2020 SARS-CoV-2, Unspecified Luc Ham MD Work Phone: [facility] 02-14-2020 influenza virus vaccine, unspecified formulation Demetrius Cooper [facility] 02-14-2020 Influenza, injectabl e, Madin Mireya Canine Kidney, preservative free, quadrivalent Luc Ham MD Work Phone: [facility] 01-31-2019 influenza, high dose seasonal, preservative-free Luc Ham MD Work Phone: [facility] 01-22-2018 influenza virus vaccine, unspecified formulation Luc Ham MD Work Phone: [facility] 01-22-2018 influenza, injectabl e, quadrivalent, contains preservative Luc Ham MD Work Phone: [facility] 01-22-2018 influenza, unspecifi ed formulation Demetrius Cooper [facility] 01-30-2014 pneumococcal conjuga te vaccine, [address] [facility] 01-30-2014 pneumococcal conjuga te vaccine, 7 valent Luc Ham MD Work Phone: [facility] Payers Date Payer Category Payer Private Health Insurance [id number] 2024 Self-pay [id number] 2023 Dual Eligibility Medicare/Medicaid Organization [facility] DUAL COMPLETE [id number] 2022 Medicare [id number] 2022 Medicare (Managed Care) 1.2. [id number] 2022 Medicare [id number] 2022 Medicare [id number] 1959 Medicare [id number] 1959 Medicare [id number] 1959 Medicare [id number] 1959 Unknown [id number] 1939 Unknown [id number] 2.16.840.1.936271.3.579. 2.647 1939 Unknown [id number] 2.16.840.1.321519.3.579. 2.593 1939 Unknown [id number] 2.16.840.1.104234.3.579. 2.593 1939 Unknown [id number] 2.16.840.1.620838.3.579. 2.593 1939 Unknown [id number] 2.16.840.1.814735.3.579. 2.593 1939 Unknown [id number] 2.16.840.1.925971.3.579. 2.593 1939 Unknown [id number] 2.16.840.1.948038.3.579. 2.593 1939 Unknown [id number] 2.16.840.1.524733.3.579. 2.593 1939 Unknown [id number] 2.16.840.1.873798.3.579. 2.593 1939 Unknown [id number] 2.16.840.1.894003.3.579. 2.593 1939 Unknown [id number] 2.16.840.1.197326.3.579. 2.593 1939 Unknown [id number] 2.16.840.1.731730.3.579. 2.593 1939 Unknown [id number] 2.16.840.1.175873.3.579. 2.593 1939 Unknown [id number] 2.16.840.1.985886.3.579. 2.593 1939 Unknown [id number] 2.16.840.1.307435.3.579. 2.593 1939 Unknown [id number] 2.16.840.1.641107.3.579. 2.593 1939 Unknown [id number] 2.16.840.1.225467.3.579. 2.593 1940 Unknown [id number] 2.16.840.1.100399.3.579. 2.593 1939 Unknown [id number] 2.16.840.1.760073.3.579. 2.593 1939 Unknown [id number] 2.16.840.1.539508.3.579. 2.593 1939 Unknown [id number] 2.16.840.1.492126.3.579. 2.593 1939 Unknown [id number] 2.16.840.1.144565.3.579. 2.356 1939 Unknown [id number] 2.16.840.1.446566.3.579. 2.356 1939 Unknown [id number] 2.16.840.1.720418.3.579. 2.356 1939 Unknown [id number] 2.16.840.1.993011.3.579. 2.727 1939 Unknown [id number] 2.16.840.1.355117.3.579. 2.727 1939 Unknown [id number] 2.16.840.1.630791.3.579. 2.72 1939 Unknown [id number] 2.16.840.1.496951.3.579. 2.72 1939 Unknown [id number] 2.16.840.1.549530.3.579. 2.72 1939 Unknown [id number] 2.16.840.1.656338.3.579. 2.72 1939 Unknown [id number] 2.16.840.1.632311.3.579. 2.72 1939 Unknown [id number] 2.16.840.1.418610.3.579. 2.727 1939 Unknown [id number] 2.16.840.1.817120.3.579. 2.72 1939 Unknown [id number] 2.16.840.1.773516.3.579. 2.727 1939 Unknown [id number] 2.16.840.1.935364.3.579. 2.72 1939 Unknown [id number] 2.16.840.1.742016.3.579. 2.727 1939 Unknown [id number] 2.16.840.1.744196.3.579. 2.72 1939 Unknown [id number] 2.16.840.1.284813.3.579. 2.72 1939 Unknown [id number] 2.16.840.1.032383.3.579. 2.72 1939 Unknown [id number] 2.16.840.1.366970.3.579. 2.72 1939 Unknown [id number] 2.16.840.1.289245.3.579. 2.72 1939 Unknown [id number] 2.16.840.1.345714.3.579. 2.72 1939 Unknown [id number] 2.16.840.1.692065.3.579. 2.124 1939 Unknown [id number] 2.16840.1.287561.3.579. 2.1244 1939 Unknown [id number] 2.16840.1.504590.3.579. 2.1244 1939 Unknown [id number] 2.16840.1.893173.3.579. 2.1244 1939 Unknown [id number] 2.16840.1.245569.3.579. 2.124 1939 Unknown [id number] 2.16840.1.279658.3.579. 2.1244 1939 Unknown [id number] 2.16.840.1.768092.3.579. 2.124 1939 Unknown [id number] 2.16.840.1.974978.3.579. 2.124 1939 Unknown [id number] 2.16.840.1.953248.3.579. 2.124 1939 Unknown [id number] 2.16.840.1.409887.3.579. 2.1259 1939 Unknown [id number] 2.16.840.1.096932.3.579. 2.125 1939 Unknown [id number] 2.16.840.1.828173.3.579. 2.125 1939 Unknown [id number] 2.16.840.1.391028.3.579. 2.125 1939 Unknown [id number] 2.16.840.1.347162.3.579. 2.1258 1939 Unknown [id number] 2.16.840.1.225880.3.579. 2.1258 1939 Unknown [id number] 2.16.840.1.243966.3.579. 2.1258 1939 Unknown [id number] 2.16.840.1.941014.3.579. 2.1258 1939 Unknown [id number] 2.16.840.1.796907.3.579. 2.1258 1939 Unknown [id number] 2.16.840.1.965093.3.579. 2.1258 1939 Unknown [id number] 2.16.840.1.720568.3.579. 2.1258 1939 Unknown [id number] 2.16.840.1.727604.3.579. 2.1258 1939 Unknown [id number] 2.16.840.1.119203.3.579. 2.125 1939 Unknown [id number] 2.16.840.1.674627.3.579. 2.1259 Unknown [id number] 2.16.840.1.258156.3.579. 2.531 Unknown [id number] 2.16.840.1.419105.3.579. 2.531 Unknown [id number] 2.16.840.1.322305.3.579. 2.531 Unknown [id number] 2.16.840.1.841680.3.579. 2.531 Unknown [id number] 2.16.840.1.902191.3.579. 2.531 Unknown [id number] 2.16.840.1.857020.3.579. 2.531 Unknown [id number] 2.16.840.1.677884.3.579. 2.531 Unknown [id number] 2.16.840.1.290826.3.579. 2.531 Unknown [id number] 2.16.840.1.010338.3.579. 2.531 Unknown [id number] 2.16.840.1.726913.3.579. 2.531 Unknown [id number] 2.16.840.1.739714.3.579. 2.531 Unknown [id number] 2.16.840.1.810081.3.579. 2.531 Unknown [id number] 2.16.840.1.735001.3.579. 2.531 Unknown [id number] 2.16.840.1.041427.3.579. 2.531 Unknown [id number] 2.16.840.1.212380.3.579. 2.531 Unknown [id number] 2.16.840.1.453321.3.579. 2.531 Unknown [id number] 2.16.840.1.050051.3.579. 2.531 Unknown [id number] 2.16.840.1.238843.3.579. 2.531 Unknown [id number] 2.16.840.1.606282.3.579. 2.531 Unknown [id number] 2.16.840.1.777775.3.579. 2.531 Unknown [id number] 2.16.840.1.671430.3.579. 2.531 Unknown [id number] 2.16.840.1.236619.3.579. 2.531 Social History Date Type Detail Facility Tobacco smoking stat us NHIS Unknown if ever smoked [facility] Start: 1940 Sex Assigned At Male F [facility] Start: 04-01-2023 End: 01-18-2025 Sex Assigned At [facility] Start: 04-27-2022 End: 02-16-2024 Tobacco smoking status Ex-smoker (finding) [facility] Comment on above: former smoker quit a t age 41, 1 PPD Patient states he sm oked about 1.5 PPD, cigarettes, from about 17 y.o. to about 41 y.o. Start: 04-10-2022 Tobacco smoking status Never [facility] Comment on above: former smoker quit a t age 41, 1 PPD Patient states he sm oked about 1.5 PPD, cigarettes, from about 17 y.o. to about 41 y.o. End: 05-17-1983 History of tobacco use Current smoker [facility] End: 05-17-1983 History of tobacco use Cigarette Smoker [facility] Start: 04-01-2023 Tobacco use and exposure Smokeless tobacco non-user [facility] Start: 04-01-2023 End: 01-18-2025 History of Social function [facility] Start: 1940 Sex Assigned At [facility] History of tobacco use Passive smoker [facility] Start: 02-12-2024 End: 01-18-2025 Alcoholic beverage intake Current drinker of alcohol (finding) [facility] Start: 12-22-2022 Tobacco Comment Years smoked: 25 [facility] Start: 12-22-2022 Alcohol Comment 1 or 2 drinks/ day, monthly or less; Caffeine: 1 drink/day [facility] Start: 04-07-2024 End: 12-04-2024 Tobacco use and exposure Former smokeless tobacco user [facility] Work Phone: Start: 04-01-2024 End: 09-11-2024 Exposure to SARS-CoV-2 (event) Not sure [facility] Start: 05-11-2024 Gender identity Identifies as male gender (finding) [facility] Work Phone: Start: 05-11-2024 Sexual orientation Heterosexual (oziel anderson) [facility] Work Phone: Start: 06-14-2024 End: 09-26-2024 Sex Male (finding) [facility] Start: 08-20-2024 End: 11-23-2024 Tobacco smoking status NHIS Never smoked tobacco (finding) [facility] Start: 08-21-2024 SDOH Follow up SDOH Follow up [facility] Work Phone: Sexual Orientation [facility] Start: 12-04-2024 Alcohol Comment or less or week [facility] Work Phone: Medical Equipment Procedure Code Equipment Code Equipment Origin al Text Equipment Identifier Dates Insertion of central venous catheter (CVC) with subcutaneous port for chemotherapy Vascular port/catheter [id number] [facility] Start: 07-17-2024 End: 05-11-2024 See Instructions [...] [facility] ionnaire 2 item (PHQ-2) [Reported] [facility] Work Phone: 08-21-2024 Functional status Patient at Baseline [facility] Work Phone: 03-23-2024 Functional Status N/A [facility] 10-21-2023 Functional Status N/A [facility] 09-17-2023 Functional Status N/A [facility] 05-25-2023 Functional Status N/A [facility] 03-10-2023 Functional Status N/A [facility] 02-25-2023 Functional Status N/A [facility] 01-12-2023 Functional Status N/A [facility] 09-22-2022 Functional Status N/A [facility] 05-19-2022 Functional Status N/A [facility] Mental Status Date Assessment Result Facility 08-21-2024 Cognitive function Cognitive Sta tus Patient at Baseline [facility] Work Phone: Clinical Notes 11-29-2021 to 01-18-2025 [...] see him PRN. documented in this encounter [facility] 12-26-2024 Progress note [facility] enter 12-11-2024 History of Present illness Narrative Formatting of this note might be differe nt from the original. HEAD AND NECK SURGERY FOLLOW UP [facility] Referring Provider: Dr. Ham HPI I had [...] Dr Lamas (med onc) at [facility] - November 2024 post treatment PET [...] lymph nodes Procedure Note: Diagnostic Flexible Laryngoscopy (72007) Indication: patient symptoms requiring evaluation of pharyngeal/laryngeal/hypopharyngeal [...] s/p completion of chemoradiation treatment at [facility] August 2024 - Doing well overall, scope and exam findings with improved thick mucous and edema. 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, he will do this closer [...] Mary Schneider MD documented in this encounter [facility] Work Phone: 12-05-2024 Note [place] Electrophysiology Consult Note [place] Cardiology [facility] Reason for visit: Device at [...] on file Intimate Partner Violence: Unknown (07/08/2023) [place] Safety & Environment Fear of Current or Ex-Partner: Not on file Emotionally Abused: Not on file Physically Abused: Not on file Sexually Abused: Not on file Physically or Sexually Abused: Not on file Depression: Not at risk (09/11/2024) Received from [facility] PHQ-2 Patient Health Questionnaire-2 Score: 0 [...] MOUTH IN THE MORNING 100 tablet 3 FVOCNCEAZV-KZKPLEH-MNWJWZEK ORAL Take by mouth if needed. clopidogrel [...] 1 tablet every day by oral route. vvdcvdocyq-rjlmfhobmrzxz-wdol (Esgic) 50-325-40 mg capsule Take 1 capsule [...] mg by mouth in the morning. HYDROcodone-acetaminophen ([place]) 5-325 mg tablet Take 1 tablet by mout (more content not included)... 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 The [place] Diabetes Association: diabetes.org ??? The Association of [...] levels in y (more content not included)... 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 Migraine [...] mellitus with diabetic neuropathy (CMS/HCC) Ventricular tachycardia ([facility]/HCC) Past Surgical History: Past Surgical History: Procedure Laterality Date CARDIAC CATHETERIZATION 08/30/2019 CATARACT EXTRACTION Bilateral CERVICAL FUSION 2015 C3-C4-C5 CHOLECYSTECTOMY GASTROSTOMY TUBE PLACEMENT HERNIA REPAIR 2001 INSERT / REPLACE / REMOVE PACEMAKER 2015 pacemaker insertion OTHER SURGICAL HISTORY 2004 ablation OTHER SURGICAL HISTORY 2006 sphincterotomy RI CHOLECYSTECTOMY 02/2020 Laparoscopic Cholecystectomy - [place] IMPLANT ARTIFICIAL SPHINCTER 2017 PROSTATE 2000 TONSILLECTOMY [...] 2+ 2+ Patellar 2+ 2+ Coordination Right: Hsjvcg-li-xezs normal.Left: Gflszb-mn-aedr normal. Gait Casual gait is normal including [...] up in 6 months [id number] History of Present illness Narrative* Veena Adkins, [...] 5 mg, Daily aspirin 81 mg, Daily vtpwqkmttx-aqhcxunqcbuam-zhtusgej 50-325-40 MG tablet 1 tablet, Every 4 [...] 2005 ablation OTHER SURGICAL HISTORY 2007 sphincterotomy RI CHOLECYSTECTOMY 02/2020 Laparoscopic Cholecystectomy - [place] IMPLANT ARTIFICIAL SPHINCTER 2017 PROSTATE 2000 TONSILLECTOMY [...] schedule early next week. [id number] Radiology Diagnostic study [facility] [place] [address] [place] [address] CT Scan Report Signed Patient: Jeremie Bennett MR#: [id number] : 1940 Acct:[id number] Age/Sex: 83 / M ADM Date: 5 Loc: ER Room: Type: [facility] ER Attending Dr: Copies to: Maru Hayes [...] Gordon M.D. 09/20/2024 8:03 PM Dictation Location: [id number] Transcribed By: [facility] 09/20/242002 Dictated By: Rafi Gordon II, MD 09/20/241947 Signed By: 09/20/242002 [facility] Work Phone: 1(342) 522-144205-07-2025 Hospital Discharge instructions Additional Instructions Please return [...] testing/monitoring to rule out evidence of possible cancer.[facility] Work Phone: 1(645) 148-236105-01-2025 NotePatient Education Nutrition BMI for Adults Body [...] for Disease Control and Prevention: cdc.gov ??? [place] Heart Association: heart.org ??? National Heart, Lung, and Blood [place]: nhlbi.nih.gov This information is not intended to replace advice given to you by your health care provider. Make sure you discuss any questions you have with your health care provider. Document Revised: 01/21/2023 Document Reviewed: 01/14/2023 [employer] Patient Education ? 2023 DataContact.[facility] 09-11-2024 History of Present illness Narrative* Mary Schneider MD - 09/11/2024 2:00 PM EDT HEAD AND NECK SURGERY FOLLOW UP [facility] Referring Provider: Dr. Ham HPI I had [...] onc) and Dr Lamas (med onc) at [facility] after completion of chemoradiation treatment earlier this month. Weight down to 149 lbs (prior 170 lbs). Swallowing liquids, saw CARBON DIOXIDE OPERATOR during treatment, not recently. Had pacemaker [...] lymph nodes Procedure Note: Diagnostic Flexible Laryngoscopy (55985) Indication: patient symptoms requiring evaluation of pharyngeal/laryngeal/hypopharyngeal [...] s/p completion of chemoradiation treatment at [facility] August 2024 - Doing well overall, scope and exam findings as expected - Recommend continued CARBON DIOXIDE OPERATOR therapy, he will do this closer to home - Discussed imaging, he has PET scheduled in November - Will need post-treatment NavDx either now or at next appointment - Discussed NCCN guidelines and ongoing surveillance - Follow up with me in 2-3 months after PET, certainly sooner if any issues Mary Schneider MD documented in this [facility] Work Phone: 1(480) 419-481704-24-2025 Evaluation note* Diagnosis Onset Date Resolution Status [...] Tongue cancer acute November 23, 2024 10:01am [facility] Work Phone: 1(307) 887-984904-24-2025 Evaluation note* Diagnosis Onset Date Resolution Status [...] of oropharynx acute November 23, 2024 10:01am [facility] Work Phone: 1(975) 880-319604-07-2025 [place] [address] Discharge Summary Signed Patient: Jeremie Bennett MR#: [id number] : 1940 Acct:[id number] Age/Sex: 83 / M Adm Date: 5 Loc: Room: [address] [place] [address]: Zeke Brennan MD Copies to: [...] he was discharged home stable condition the [facility] with few more days of oral antimicrobial [...] Continuity of Care Document Health Concerns: A [facility] screening has identified you as FRAIL or [...] Strong:Four Ways to Beat the Frailty Risk [email or web address]-wsk-krnzrsixxq/st qg-dxlivb-ezho- exoa-mb-vihn-fgq-ftbykzy-yqnv Exam Physical Exam Vital Signs: Temp Pulse [...] % (Auto) 75.8, Lymph % (Auto) 9.0, [place] % (Auto) 13.6, Eos % (Auto) 1.0, Baso % (Auto) 0.6, Nucleat RBC Rel Count 0.1, Neut # (Auto) 4.7, Lymph # (Auto) 0.6 L, [place] # (Auto) 0.8, Eos # (Auto) 0.1, [...] % (Auto) 77.0, Lymph % (Auto) 10.5, [place] % (Auto) 11.3, Eos % (Auto) 0.7, Baso % (Auto) 0.5, Nucleat RBC Rel Count 0.2, Neut # (Auto) 5.7, Lymph # (Auto) 0.8 L, [place] # (Auto) 0.8, Eos # (Auto) 0.1, Baso # (Auto) 0.0, Monocyte Dist Width 23.19 H, ESR 42 H, PT 12.9, INR 1.1, Lactic Acid 0.8, C-Reactive Prot, Quant Cancelled 08/20/24 12:20: PHA Creatinine Clear 58.71, Sodium 136, Potassium 3.7, Chloride 104, Carbon Qzxsvte10.4, Anion Gap 10.3, BUN 16, Creatinine 0.85, Est GFR (CKD- EPI) > 60.0, Glucose 106 H, Calcium 8.4 L, Total Bilirubin 0.6, AST 18, ALT 17, Alkaline Phosphatase 66, C-Reactive Prot, Quant 3.3 H, Total Protein 5.9 L, Albumin 3.4 L, Globulin 2.5, Albumin/Globulin Ratio 1.4 Documented By: Zeke Brennan MD 08/21/24 1407 Signed By: 08/21/24 1414 [facility]04-07-2025 [place] [address] Hospitalist Progress Note Signed Patient: Jeremie Bennett MR#: [id number] : 1940 Acct:[id number] Age/Sex: 83 / M Adm Date: 5 Loc: Room: [address] [place] [address] Type: ADM IN Attending Dr: Zeke Brennan [...] care and confirmed it with the re sident/student/COORDINATOR [employer]. This patient presented to the emergency department [...] spray 08/21/24 09:00 08/21/24 09:02 Fluticasone Propionate [place] 120 [place]/16 Gm Bottle INTRANASAL 08/21/25 08:59 2 spray [...] Drops/2.5 Ml Bottle EYE-BOTH 08/21/25 20:59 QPM [facility] Lidocaine/Prilocaine 1 applic 08/20/24 21:59 Lidocaine-Prilocaine Cr [...] 1135 Signed By: 08/21/24 1414 08/21/24 1152 [facility]04-07-2025 Consult note Author Yash Thomas [facility] Note Date/Time August 21, 2024 11:1 0am [facility] [address] [place] [address] Infect. Disease Consult Note Signed Patient: Jeremie Bennett MR#: [id number] : 1940 Acct:[id number] Age/Sex: 83 / M Adm Date: 5 Loc: Room: [address] [place] [address] Type: ADM IN Attending Dr: Zeke Brennan [...] at 10 PM CC: Zeke Brennan MD [facility] Medical History Pacemaker Prostate cancer surgery Neuropathy [...] 20 Mg Tablet) 20 mg PO QPM [facility] Stop: 08/21/25 20:59 Clopidogrel Bisulfate (Clopidogrel Bisulfate 75 Mg Tablet) 75 mg PO DAILY [facility] Stop: 08/21/25 08:59 Last Admin: 08/21/24 09:00 Dose: 75 mg Dorzolamide HCl (Dorzolamide 2% Op Soln 200 Drops/10 Ml Bottle) 1 drops EYE-BOTH BID [facility] Stop: 08/21/25 08:59 Last Admin: 08/21/24 09:04 Dose: 1 drops Famotidine (Famotidine 20 Mg Tablet) 20 mg PO QPM [facility] Stop: 08/21/25 20:59 Fentanyl (Fentanyl Patch 12 Mcg/Hour Patch.Td72) 12 mcg TRANSDERML Q72HR [facility]; Protocol Fluticasone Propionate (Fluticasone Propionate [place] 120 [place]/16 Gm Bottle) 2 spray INTRANASAL QAM [facility] Stop: 08/21/25 08:59 Last Admin: 08/21/24 09:02 Dose: 2 spray Ceftriaxone Sodium (Rocephin) 1 gm in 50 mls @ 100 mls/hr IV QHS [facility] Isosorbide Mononitrate (Isosorbide Mononitrate 24hr Er 30 Mg Tab.Er.24h) 30 mg PO QAM [facility] Stop: 08/21/25 08:59 Last Admin: 08/21/24 09:00 Dose: 30 mg Latanoprost (Latanoprost 0.005% Op Soln 50 Drops/2.5 Ml Bottle) 1 drops EYE-BOTH QPM [facility] Stop: 08/21/25 20:59 Lidocaine/Prilocaine (Lidocaine-Prilocaine Cr 2.5-2.5% 5 Gm Tube) 1 applic TOPICAL ONCE PRN PRN Reason: pain Stop: 08/20/25 21:58 Metformin HCl (Metformin 500 Mg Tablet) 500 mg PO DAILY@0800 [facility] Stop: 08/21/25 07:59 Last Admin: 08/21/24 09:00 Dose: 500 mg Multi-Ingredient Mouthwash/Gargle (Magic Mouthwash With Lidocaine) 10 ml PO QIDPRN PRN Reason: mucositis Stop: 08/20/25 22:46 Nystatin (Nystatin Susp 500,000 Unit/5 Ml Udc) 500,000 unit PO QID [facility] Stop: 08/21/25 08:59 Last Admin: 08/21/24 09:01 Dose: 500,000 unit Olanzapine (Olanzapine 2.5 Mg Tablet) 2.5 mg PO BID [facility] Stop: 08/21/25 08:59 Last Admin: 08/21/24 09:00 Dose: 2.5 mg Ondansetron HCl (Ondansetron Odt 4 Mg Tab.Rapdis) 8 mg PO Q8HR PRN PRN Reason: nausea and vomiting Stop: 08/20/25 22:49 Oxycodone HCl (Oxycodone Ir 5 Mg Tablet) 10 mg PO Q4HR PRN PRN Reason: pain Last Admin: 08/21/24 09:01 Dose: 10 mg Pantoprazole Sodium (Pantoprazole 40 Mg Tablet.Dr) 40 mg PO BID [facility] Stop: 08/21/25 08:59 Last Admin: 08/21/24 09:00 Dose: 40 mg Rivaroxaban (Rivaroxaban 10 Mg Tablet) 10 mg PO QHS [facility] Stop: 08/21/25 21:59 Sennosides (Sennosides 8.6 Mg Tablet) 8.6 mg PO BID PRN PRN Reason: constipation Stop: 08/20/25 21:58 Last Admin: 08/21/24 09:00 Dose: 8.6 mg Silver Sulfadiazine (Silver Sulfadiazine 1% Cream 400 Gm Jar) 1 applic TOPICAL BID [facility] Stop: 08/21/25 08:59 Last Admin: 08/21/24 09:07 Dose: 1 applic Sodium Chloride (Sodium Chloride 0.9 % 10 Ml Syringe) 0 ml IV-PUSH PRN PRN PRN Reason: Flush Stop: 08/20/25 16:56 Last Admin: 08/20/24 17:20 Dose: 10 ml Sodium Chloride (Sodium Chloride 0.9 % 10 Ml Syringe) 10 ml IV-PUSH Q8H [facility] Stop: 08/20/25 19:44 Last Admin: 08/21/24 03:06 Dose: Not Given Sotalol HCl (Sotalol 80 Mg Tablet) 40 mg PO BID [facility] Stop: 08/21/25 08:59 Last Admin: 08/21/24 09:01 Dose: 40 mg Tizanidine HCl (Tizanidine 4 Mg Tablet) 4 mg PO QPM [facility] Stop: 08/21/25 20:59 Zonisamide (Zonisamide 25 Mg [...] signed by MD Yash Thomas> 08/21/24 1110 [facility] Work Phone: 1(865) 887-634304-07-[address] [address] Infect. Disease Consult Note Signed Patient: Jeremie Bennett MR#: [id number] : 1940 Acct:[id number] Age/Sex: 83 / M Adm Date: 5 Loc: Room: [address] [place] [address] Type: ADM IN Attending Dr: Zeke Brennan [...] at 10 PM CC: Zeke Brennan MD [facility] Medical History Pacemaker Prostate cancer surgery Neuropathy [...] 12 Mcg/Hour Patch.Td72) 12 mcg TRANSDERML Q72HR [facility]; Protocol Fluticasone Propionate (Fluticasone Propionate [place] 120 [place]/16 Gm Bottle) 2 spray INTRANASAL [facility] Stop: 08/21/25 08:59 Last Admin: 08/21/24 09:02 Dose: 2 spray Ceftriaxone Sodium (Rocephin) 1 gm in 50 mls @ 100 mls/hr IV QHS [facility] Isosorbide Mononitrate (Isosorbide Mononitrate 24hr Er 30 Mg Tab.Er.24h) 30 mg PO QAM [facility] Stop: 08/21/25 08:59 Last Admin: 08/21/24 09:00 Dose: 30 mg Latanoprost (Latanoprost 0.005% Op Soln 50 Drops/2.5 Ml Bottle) 1 drops EYE-BOTH QPM [facility] Stop: 08/21/25 20:59 Lidocaine/Prilocaine (Lidocaine-Prilocaine Cr 2.5-2.5% 5 Gm Tube) 1 applic TOPICAL ONCE PRN PRN Reason: pain Stop: 08/20/25 21:58 Metformin HCl (Metformin 500 Mg Tablet) 500 mg PO DAILY@0800 [facility] Stop: 08/21/25 07:59 Last Admin: 08/21/24 09:00 Dose: 500 mg Multi-Ingredient Mouthwash/Gargle (Magic Mouthwash With Lidocaine) 10 ml PO QIDPRN PRN Reason: mucositis Stop: 08/20/25 22:46 Nystatin (Nystatin Susp 500,000 Unit/5 Ml Udc) 500,000 unit PO QID [facility] Stop: 08/21/25 08:59 Last Admin: 08/21/24 09:01 Dose: 500,000 unit Olanzapine (Olanzapine 2.5 Mg Tablet) 2.5 mg PO BID [facility] Stop: 08/21/25 08:59 Last Admin: 08/21/24 09:00 [...] MD 08/21/24 1053 Signed By: 08/21/24 1110 [facility]04-07-2025 Radiology Diagnostic study note [facility] [place] [address] [place] [address] CT Scan Report Signed Patient: Jeremie Bennett MR#: [id number] : 1940 Acct:[id number] Age/Sex: 83 / M ADM Date: 5 Loc: Room: [address] [place] [address] Type: ADM IN Attending Dr: Jaiden Nance [...] Christian Melton M.D.08/21/2024 5:58 AM Dictation Location: [place] [address] Transcribed By: [facility] 08/21/24 0558 Dictated By: Christian Melton DO 08/21/24 0555 Signed By: 08/21/24 0558 [facility]03-26-2025 Progress note Author Debora Wild [facility] Note Date/Time August 09, 2024 10: 25am [facility] [address] [place] [address] Palliative Medicine Encounter Patient: Jeremie Bennett MR#: [id number] : 1940 Acct:[id number] Age/Sex: 83 / M Copies to: RAYSHAWN [...] tablet 81 mg PO DAILY 06/14/24 08/09/24 rnteazu-ktsspsuaiodhb-wcufbbyg 250 1 tab PO Q4-6H PRN pain [...] tabs 08/09/24 Is patient having pain?: Yes [facility] Medical History (Updated 08/09/24 @ 09:38 by [...] Alcohol Substance Abuse Comment: rare alcohol use [place] Symptom Assessment Scale Pain: throat pain controlled [...] recorder, note dictated by Debora Wild APRN, COORDINATOR INTEGRATED MARKETING-C ACHPN Dictated By: Debora Wild APRN DD/ 0945 Signed By: <Electronically signed by RAYSHAWN Wild> 08/09/24 [facility]0 [facility] Work Phone: 1(770) 176-729603-26-2025 [place] [address] Palliative Medicine Encounter Patient: Jeremie Bennett MR#: [id number] : 1940 Acct:[id number] Age/Sex: 83 / M Copies to: RAYSHAWN [...] tablet 81 mg PO DAILY 06/14/24 08/09/24 tpzmrrv-frkyqheudpolw-ljoltxic 250 1 tab PO Q4-6H PRN pain [...] Alcohol Substance Abuse Comment: rare alcohol use [place] Symptom Assessment Scale Pain: throat pain controlled [...] recorder, note dictated by Debora Wild APRN, COORDINATOR INTEGRATED MARKETINGRosemaryC ACHPN Dictated By: Debora Wild APRN DD/ 0945 Signed By: 08/09/24 [facility]5 [facility]03-12-2025 Progress note Author Maru Ma [facility] Note Date/Time July 26, 2024 12: 02pm [facility] [address] [place] [address] Palliative Medicine Encounter Patient: Jeremie Bennett MR#: [id number] : 1940 Acct:[id number] Age/Sex: 83 / M Copies to: DO [...] tablet 81 mg PO DAILY 06/14/24 07/26/24 ywbdqyd-gtfpqcnhuvwml-vxshmaoh 250 1 tab PO Q4-6H PRN pain [...] Alcohol Substance Abuse Comment: rare alcohol use [place] Symptom Assessment Scale See above Exam Exam [...] by DO FELLOW Mario El> 07/26/24 0944 [facility] Work Phone: 1(853) 334-160203-12-2025 [place] [address] Palliative Medicine Encounter Patient: Jeremie Bennett MR#: [id number] : 1940 Acct:[id number] Age/Sex: 83 / M Copies to: DO [...] tablet 81 mg PO DAILY 06/14/24 07/26/24 cljilnm-nvjduedecpdui-altgvooq 250 1 tab PO Q4-6H PRN pain [...] Alcohol Substance Abuse Comment: rare alcohol use [place] Symptom Assessment Scale See above Exam Exam [...] 0833 Signed By: 07/26/24 1202 07/26/24 0944 [facility]03-12-2025 Evaluation note* Diagnosis Onset Date Resolution Status Admit Date 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, 2024 8:13am Cancer associated pain acute [facility] 2024 8:22am Nausea acute July 26 8:22am 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, 2024 8:22am [facility] Work Phone: 1([phone]) 182-317703-12-2025 Evaluation note* Diagnosis Onset Date Resolution Status Admit Date 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, 2024 8:13am Cancer associated pain acute [facility] 2024 8:22am Nausea acute July 26 8:22am 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, 2024 8:22am Cancer associated pain acute [facility] 2024 7:29am Constipation acute August 02, 2024 7:29am Squamous cell carcinoma of oropharynx acute August 02, 2024 7:29am Thrush, oral acute August 02, 2024 7:29am [facility] Work Phone: 1([phone]) 270-923103-12-2025 Evaluation note* Diagnosis Onset Date Resolution Status Admit Date 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, 2024 8:13am Cancer associated pain acute [facility] 2024 8:22am Nausea acute July 26 8:22am 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, 2024 8:22am Cancer associated pain acute [facility] 2024 7:29am Constipation acute August 02, 2024 7:29am Squamous cell carcinoma of oropharynx acute August 02, 2024 7:29am Thrush, oral acute August 02, 2024 7:29am Cancer associated pain acute [facility] 2024 7:51am Constipation acute August 09, 2024 7:51am Nausea acute August 09 7:51am Squamous cell carcinoma of oropharynx acute August 09, 2024 7:51am Squamous cell carcinoma of oropharynx acute August 09, 2024 9:23am [facility] Work Phone: 1(446) 151-572103-12-2025 Evaluation note* Diagnosis Onset Date Resolution Status Admit Date 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, 2024 8:13am Cancer associated pain acute [facility] 2024 8:22am Nausea acute July 26 8:22am 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, 2024 8:22am Cancer associated pain acute [facility] 2024 7:29am Constipation acute August 02, 2024 7:29am Squamous cell carcinoma of oropharynx acute August 02, 2024 7:29am Thrush, oral acute August 02, 2024 7:29am Cancer associated pain acute [facility] 2024 7:51am Constipation acute August 09, 2024 7:51am Nausea acute August 09 7:51am Squamous cell carcinoma of oropharynx acute August 09, 2024 7:51am Squamous cell carcinoma of oropharynx acute August 09, 2024 9:23am Cancer associated pain acute [facility] 2024 7:59am Constipation acute August 16 7:59am Nausea acute August 16 7:59am Squamous cell carcinoma of oropharynx acute August 16, 2024 7:59am [facility] Work Phone: [phone]) [phone] Evaluation note* Diagnosis Onset Date Resolution Status Admit Date 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, 2024 8:13am Cancer associated pain acute [facility] 2024 8:22am Nausea acute July 26 8:22am 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, 2024 8:22am Cancer associated pain acute [facility] 2024 7:29am Constipation acute August 02, 2024 7:29am Squamous cell carcinoma of oropharynx acute August 02, 2024 7:29am Thrush, oral acute August 02, 2024 7:29am Cancer associated pain acute [facility] 2024 7:51am Constipation acute August [...] 202024 7:35pm Pneumonia acute August 20 7:35pm [facility] Work Phone: [phone] Evaluation note* Diagnosis Onset Date Resolution Status Admit Date 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, 2024 8:13am Cancer associated pain acute [facility] 2024 8:22am Nausea acute July 26 8:22am 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, 2024 8:22am Cancer associated pain acute [facility] 2024 7:29am Constipation acute August 02, 2024 7:29am Squamous cell carcinoma of oropharynx acute August 02, 2024 7:29am Thrush, oral acute August 02, 2024 7:29am Cancer associated pain acute [facility] 2024 7:51am Constipation acute August [...] of oropharynx acute August 20, 2024 7:35pm [facility] Work Phone: 1([phone] 307-486403-12-2025 Evaluation note* Diagnosis Onset Date Resolution Status Admit Date 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, 2024 8:13am Cancer associated pain acute [facility] 2024 8:22am Nausea acute July 26 8:22am 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, 2024 8:22am Cancer associated pain acute [facility] 2024 7:29am Constipation acute August 02, 2024 7:29am Squamous cell carcinoma of oropharynx acute August 02, 2024 7:29am Thrush, oral acute August 02, 2024 7:29am Cancer associated pain acute [facility] 2024 7:51am Constipation acute August [...] of oropharynx acute September 11, 2024 9:55am [facility] Work Phone: 1([phone]) 444-159103-12-2025 Evaluation note* Diagnosis Onset Date Resolution Status Admit Date 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 Boy Buitrago APRN-[facility] Cardi[facility]-26-2025 [facility]Un[facility] [place] [address] Cancer Center Note Signed Patient: Jeremie Bennett MR#: [id number] : 1940 Acct:[id number] Age/Sex: 83 / M Type: REG AMB [...] by IHC was equivocal. As per the [facility] tumor board recommendation is either [...] his week 1 of cisplatin. Labs at [facility] on 07/03/24 revealed hgb 13.3, cr is 1.0. He is having his labs here today.He had his pacemaker placed on 07/10/24 in [place]. 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 [...] positive squamous cell carcinoma. Tumor board at [facility] in [facility] and the recommended concurrent chemoradiation. Past [...] with concurrent chemoradiation. Since he lives in [place] he was referred by Dr. Mary Schneider from ENT at [facility] to our medical oncology and radiation oncology at [facility]. He is referred to medical oncology [...] his week 1 of cisplatin. Labs at [facility] on 07/03/24 revealed hgb 13.3, cr is 1.0. He is having his labs here today.He had his pacemaker placed on 07/10/24 in [place]. Rest of 14 point systems were reviewed [...] PO QAM aspirin 81 mg PO DAILY shoydqq-yvjvbwmudhbia-tvdqoywf 250-250-65 mg (Excedrin Migraine) 1 tab PO [...] other concerns voiced at time of intake. [facility] Medical History Medical History (Updated 07/06/24 @ [...] (end stage renal disease) [facility]: Diagnosed with Cancer Lymphoma [...] MD DD/ 0837 Signed By: 07/12/24 0920 [facility]02-24-2025 NotePACEMAKER GENERATOR REPLACEMENT PROCEDURE NOTE DATE OF [...] 2 weeks Stacey Patel MD Cardiac ElectrophysiologyC[facility]02-20-2025 Progress note Author Debora Wild [facility] Note Date/Time July 06, 2024 11:40am [facility] [address] [place] [address] Palliative Medicine Encounter Patient: Jeremie Bennett MR#: [id number] : 1940 Acct:[id number] Age/Sex: 83 / M Copies to: RAYSHAWN [...] tablet 81 mg PO DAILY 06/14/24 06/22/24 dvjrwzu-ysriqhetsiuux-tdznolhn 250 1 tab PO Q4-6H PRN pain [...] (psyllium husk)) Is patient having pain?: No [facility] Medical History (Updated 07/06/24 @ 09:33 by [...] Alcohol Substance Abuse Comment: rare alcohol use [place] Symptom Assessment Scale Pain: intermittent scratchy throat/ [...] mins #about Jeremie: Kaya moved her from [place] 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 Exam Exam General - A&O, [...] recorder, note dictated by Debora Wild APRN, COORDINATOR INTEGRATED MARKETINGRosemaryC ACHPN Dictated By: Debora Wild APRN DD/ 0858 Signed By: <Electronically signed by RAYSHAWN Wild> 07/06/24 1141 [facility] Work Phone: 1(790) 698-896002-20-2025 [place] [address] Palliative Medicine Encounter Patient: Jeremie Bennett MR#: [id number] : 1940 Acct:[id number] Age/Sex: 83 / M Copies to: RAYSHAWN [...] tablet 81 mg PO DAILY 06/14/24 06/22/24 ixyjmqy-mapwrndytsfcy-jnfcqlql 250 1 tab PO Q4-6H PRN pain [...] (psyllium husk)) Is patient having pain?: No [facility] Medical History (Updated 07/06/24 @ 09:33 by [...] Alcohol Substance Abuse Comment: rare alcohol use [place] Symptom Assessment Scale Pain: intermittent scratchy throat/ [...] mins #about Jeremie: Kaya moved her from [place] Exam Exam General - A&O, accompanied by [...] APRN DD/ 0858 Signed By: 07/06/24 1140 [facility]02-18-2025 NoteNurse Consultation Note Reason for Visit patient [...] PRN, 1 refills fluticasone Nasal 0.05 mg/inh [place], See Instructions furosemide 20 mg Tab, 20 [...] influenza virus vaccine, inactivated 04/12/2023 Recorded SARSCoV2 mRNA(ahhelllaq-stkk-izpung) vac 11/25/2021 Recorded SARS-CoV-2 (COVID-19) mRNA BNT-162b2 vax 03/06/2021 Recorded 2022-11-03: TPV80 influenza virus vaccine, inactivated 02/18/2021 Recorded SARS-CoV-2 (COVID-19) mRNA BNT-162b2 vax 06/27/2020 Recorded SARS-CoV-2 (COVID-19) Ad26 vaccine 06/27/2020 Recorded SARS-CoV-2 (COVID-19) mRNA BNT-162b2 vax 06/06/2020 Recorded SARS-CoV-2 (COVID-19) Ad26 vaccine 06/06/2020 Recorded influenza virus vaccine, inactivated 02/14/2020 Recorded influenza, unspecified formulation 01/22/2018 Recorded pneumococcal 13-valent vaccine 01/30/2014 [facility] NoteNurse Consultation Note Reason for [...] PRN, 1 refills fluticasone Nasal 0.05 mg/inh [place], See Instructions furosemide 20 mg Tab, 20 [...] influenza virus vaccine, inactivated 04/12/2023 Recorded SARSCoV2 mRNA(pdeqyrmuh-zzxz-zzcnqv) vac 11/25/2021 Recorded SARS-CoV-2 (COVID-19) mRNA BNT-162b2 vax 03/06/2021 Recorded 2022-11-03: TPV80 influenza virus vaccine, inactivated 02/18/2021 Recorded SARS-CoV-2 (COVID-19) mRNA BNT-162b2 vax 06/27/2020 Recorded SARS-CoV-2 (COVID-19) Ad26 vaccine 06/27/2020 Recorded SARS-CoV-2 (COVID-19) mRNA BNT-162b2 vax 06/06/2020 Recorded SARS-CoV-2 (COVID-19) Ad26 vaccine 06/06/2020 Recorded influenza virus vaccine, inactivated 02/14/2020 Recorded influenza, unspecified formulation 01/22/2018 Recorded pneumococcal 13-valent vaccine 01/30/2014 [facility] History of Present illness Narrative* LINWOOD Morgan - 06/23/2024 4:00 PM EST History: Patient was referred for an audiological evaluation. A baseline hearing exam was recommended prior to chemo treatment. Patient sees an ENT at [facility]. Patient is aware of hearing loss, [...] function Impressions: Results to Dr. Faustin at [facility] per patient. documented in this encounterCox [id number] History of Present illness Narrative* Matteo Bell MD - 06/20/2024 3:15 PM EST Images from the original note were not included. Jeremie Bennett 1940 Jeremie Bennett is a 83 y.o. male presents with chief complaint of Consult (Port - Ref Dr LAMAS Tonguecanifeanyi/Having pacemaker generator change on 07-10-24 / [place] cardiology Dr Patel.) HPI: Mr. 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 Migraine headache ([facility]/HCC) Mixed incontinence 01/27/2024 Other specified disorders of synovium, right ankle and foot Pain management Pain of upper abdomen 04/03/2022 Paronychia of great toe bilateral Peptic ulcer 04/03/2022 Personal history of other medical treatment 04/2018 body map scanned in for biopsies and trtm Prostate cancer ([facility]) Right flank pain 04/03/2022 Sinus tarsi syndrome of right foot Sleep apnea Toe pain, right Type 2 diabetes mellitus with diabetic neuropathy ([facility]/HCC) Ventricular tachycardia ([facility]) Social History Tobacco Use Smoking status: Former [...] 2005 ablation OTHER SURGICAL HISTORY 2007 sphincterotomy RI CHOLECYSTECTOMY 02/2020 Laparoscopic Cholecystectomy - [place] RI IMPLANT ARTIFICIAL SPHINCTER 2017 PROSTATE 2000 TONSILLECTOMY [...] placed on the right. documented in this encounterCox [id number] Progress note Author Talib HeTrinitas Hospitalethan [facility] Note Date/Time June 14, 2024 1 1:06am [facility] [place] [address] Cancer Center Note Signed Patient: Jeremie Bennett MR#: [id number] : 1940 Acct:[id number] Age/Sex: 83 / M Type: REG AMB [...] by IHC was equivocal. 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 [...] positive squamous cell carcinoma. Tumor board at [facility] in [place] and the recommended [...] with concurrent chemoradiation. Since he lives in [place] he was referred by Dr. Mary Schneider from ENT at [facility] to our medical oncology and radiation oncology at [facility]. He is referred to medical oncology [...] PO DAILY aspirin 81 mg PO DAILY bvekujx-huwzrwxauuamy-aeuvxuoh 250-250-65 mg (Excedrin Migraine) 1 tab PO [...] card, magnet, caregiver resource list, [facility] nutrition guide, and cancer rehabilitation pamphlet provided [...] to have pace maker replaced 07/10/2024 at [facility]. [facility] Medical History Medical History (Updated 06/14/24 @ [...] emphysema Hypertension Heart disease Sister [facility] Problem: Diagnosed with Cancer Social History Social [...] signed by Talib Faustin MD> 06/14/24 1106 [facility] Work Phone: 1([phone]) [phone] Evaluation note* Diagnosis Onset Date Resolution Status Admit Date Squamous cell carcinoma of oropharynx acute June 14 9:25am Tongue cancer acute May 9:25am Squamous cell carcinoma of oropharynx acute June 14 10:28am [facility] Work Phone: [phone] Evaluation note* Diagnosis Onset Date Resolution Status Admit Date Squamous cell carcinoma of oropharynx acute June 14 9:25am Tongue cancer acute May 9:25am Squamous cell carcinoma of oropharynx acute June 14 10:28am Encounter for palliative care acute July 06, 2024 8:00am 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 06 025 8:00am [facility] Work Phone: [phone]) [phone] Evaluation note* Diagnosis Onset Date Resolution Status [...] 8:29am Tongue cancer acute July 122024 8:29am [facility] Work Phone: 1(281) 617-968601-29-2025 [facility] [place] [address] Cancer Center Note Signed Patient: Jeremie Bennett MR#: [id number] : 1940 Acct:[id number] Age/Sex: 83 / M Type: REG AMB [...] by IHC was equivocal. 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 [...] positive squamous cell carcinoma. Tumor board at [facility] in [facility] and the recommended concurrent chemoradiation. Past [...] with concurrent chemoradiation. Since he lives in [place] he was referred by Dr. Mary Schneider from ENT at [facility] to our medical oncology and radiation oncology at [facility]. He is referred to medical oncology [...] PO DAILY aspirin 81 mg PO DAILY uwzlpej-gpdllppnqlykp-ukhbdhhk 250-250-65 mg (Excedrin Migraine) 1 tab PO [...] card, magnet, caregiver resource list, [facility] nutrition guide, and cancer rehabilitation pamphlet provided [...] to have pace maker replaced 07/10/2024 at [facility]. [facility] Medical History Medical History (Updated 06/14/24 @ [...] MD DD/ 0953 Signed By: 06/14/24 1106 [facility]01-20-2025 Hospital Discharge instructions* Discharge Instructions* Bob Larson [...] questions related to your procedure: Please call [phone] between the hours of 7:00am-5:00pm Wednesday through Wednesday. Please call [phone] after 5:00pm and on weekends and holidays. In the event of an emergency call 911 or go to your nearest emergency room. documented in this [facility] Work Phone: 1(632) 142-468701-20-2025 Miscellaneous Notes* Post-Procedure Note - Juan Albright [...] PACS Procedure performed by: Juan Albright MD Wet Plant Operator(s): Dr. Gaby Perez MD Estimated Blood Loss [...] Albright MD, PGY-6 Interventional Radiology IR pager: [phone] NON-Urgent money market clerk weekends and after hours weekdays (5pm - 5am) IR pager: [phone] Urgent & emergent money market clerk weekends and after hours weekdays (5pm-7am) IR pager: [phone] * Pre-Procedure Note - Juan Albright MD [...] by mouth once daily., Disp: , Rfl: unlgpitubx-wffbuphxzhach-beew 50-325-40 mg tablet, Take 1 tablet by [...] discussed with the patient and/or their customer relations representative. All questions answered and they agree to proceed. Juan Albright MD, PGY-6 Vascular & Interventional Radiology IR pager: [phone] NON-Urgent money market clerk weekends and after hours weekdays (5pm - 5am) IR pager: [phone] Urgent & emergent money market clerk weekends and after hours weekdays (5pm-7am) IR pager: [phone] documented in [facility]Mer[facility] Work Phone: 1(933) 914-426101-20-2025 Note* Post-Procedure Note - Juan Albright MD [...] PACS Procedure performed by: Juan Albright MD Wet Plant Operator(s): Dr. Gaby Perez MD Estimated Blood Loss [...] Albright MD, PGY-6 Interventional Radiology IR pager: [phone] NON-Urgent money market clerk weekends and after hours weekdays (5pm - 5am) IR pager: [phone] Urgent & emergent money market clerk weekends and after hours weekdays (5pm-7am) IR pager: [phone] [facility] Work Phone: 1(678) 284-225701-20-2025 Note* Pre-Procedure Note - Juan Albright MD [...] by mouth once daily., Disp: , Rfl: vopdvwjylf-qxbooqnkwgxml-fhkv 50-325-40 mg tablet, Take 1 tablet by [...] discussed with the patient and/or their customer relations representative. All questions answered and they agree to proceed. Juan Albright MD, PGY-6 Vascular & Interventional Radiology IR pager: [phone] NON-Urgent money market clerk weekends and after hours weekdays (5pm - 5am) IR pager: [phone] Urgent & emergent money market clerk weekends and after hours weekdays (5pm-7am) IR pager: [phone] [facility] Work Phone: 1(483) 245-705201-14-2025 History of Present illness Narrative* Mary Schneider MD - 05/30/2024 11:45 AM EST HEAD AND NECK SURGERY FOLLOW UP [facility] [place] Referring Provider: Dr. Ham HPI I had [...] lymph node Procedure Note: Diagnostic Flexible Laryngoscopy (55716) Indication: patient symptoms requiring evaluation of pharyngeal/laryngeal/hypopharyngeal [...] proceed with concurrent chemoradiation. [place] lives in [place], referrals to med onc and rad onc placed today to be setup locally at [facility]. I have also reached out to Dr Gray - He will need iris dx testing done prior to starting treatment - I will follow up the biopsy and call him with results - I will see him after treatment for cancer surveillance Mary Schneider MD 24 modifier used due to extensive discussion and coordination of cancer treatment documented in this [facility]Mer[facility] Work Phone: 1(654) [phone] Hospital Discharge instructions* Discharge Instructions* Jessica Carreon [...] to your nearest ED. 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] Procedures Direct Laryngoscopy 72283 - [place] LARYNGOSCOPY W/WO TRACHEOSCOPY DX EXCEPT Bronchoscopy 31487 - [place] [facility] INCL FLUOR GDNCE DX W/CELL WASHG SPX Esophagoscopy 62644 - [place] ESOPHAGOSCOPY FLEXIBLE TRANSORAL DIAGNOSTIC Surgeons Panel 1: * Mary Schneider - Primary Panel 2: * Mary Schneider - Primary Resident/Fellow/Other Wet Plant Operator: Surgeons and Role: Panel 1: * Riana Vela PA-C - Resident - Assisting Staff: Veneer Cutter: Jameel Camargo Person: Simon Camargo Person: Reggie Anesthesia Staff: Anesthesiologist: Gabo Munoz MD Supervisor [employer]: Candice Aceves MD; Delvis Santana MD Procedure [...] scrubbed for the entire procedure. 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] Procedures Direct Laryngoscopy 31154 - [place] LARYNGOSCOPY W/WO TRACHEOSCOPY DX EXCEPT Bronchoscopy 51188 - [place] [facility] INCL FLUOR GDNCE DX W/CELL WASHG SPX Esophagoscopy 46969 - [place] ESOPHAGOSCOPY FLEXIBLE TRANSORAL DIAGNOSTIC Surgeons Panel 1: * Mary Schneider - Primary Panel 2: * Mary Schneider - Primary Resident/Fellow/Other Wet Plant Operator: Surgeons and Role: Panel 1: * Riana Vela PA-C - Resident - Assisting Staff: Veneer Cutter: Jameel Camargo Person: Simon Camargo Person: Reggie Anesthesia Staff: Anesthesiologist: Gabo Munoz MD Supervisor [employer]: Candice Aceves MD; Delvis Santana MD Procedure [...] entire procedure. Mary Schneider documented in this [facility] Work Phone: 1(806) 175-832612-26-2024 History and physical note* Jessica Carreon MD [...] Schneider MD at 05/11/2024 6:34 AM EST [facility] Work Phone: 1([phone] 165-757612-26-2024 History and physical note* Jessica Carreon MD [...] 05/11/2024 6:34 AM EST documented in this [facility] Work Phone: [phone]) 518-774512-24-2024 History of Present illness Narrative* Mary Guevara - 05/09/2024 10:02 AM EST Pharmacy Medication History Review Jeremie Bennett is a 83 y.o. male who is planned to be admitted for Malignant neoplasm of floor of mouth. Pharmacy called the patient prior to their scheduled procedure and reviewed the patient's amkyw-cn-cqgwlyhrf medications for accuracy. Medications ADDED: none Medications [...] to complete the med history include: [facility] Pharmacy dispense history Patient interview Chart Review Care Everywhere Below are additional concerns with the patient's DIRECTOR OF RESIDENTIAL SERVICES list. Patient states they are taking #1 tablet of metformin XR 500mg once daily. L.F. 02/24/24 #200/100d (prescription states #1BID) Patient states they are taking #1 tablet of rosuvastatin 10mg daily. L.F. 05/31/23 #90/90d. There is no recent fill history to confirm Mary Ismael [facility] Please reach out via Secure Chat for questions documented [facility] Work Phone: [phone]) 836-101012-10-2024 NoteUT Electrophysiology Consult Note [place] Cardiology [facility] Reason for visit: Device at [...] ECG Bradycardia Coronary artery disease Diabetes mellitus ([facility]/HCC) Heart valve disease Hyperlipidemia VT (ventricular tachycardia) ([facility]) PSH: Past Surgical History: Procedure Laterality Date ABLATION OF DYSRHYTHMIC FOCUS CARDIAC CATHETERIZATION INSERT / REPLACE / REMOVE PACEMAKER SH: Social Determinants of Health Tobacco Use: Medium Risk (05/11/2024) Received from [facility] Patient History Smoking Tobacco Use: Former Smokeless Tobacco Use: Former Passive Exposure: Not on file Alcohol Use: Not on file Financial Resource Strain: Not on file Food Insecurity: Not on file Transportation Needs: Not on file Physical Activity: Not on file Stress: Not on file Social Connections: Not on file Intimate Partner Violence: Unknown (07/08/2023) [place] Safety & Environment Fear of Current or Ex-Partner: Not on file Emotionally Abused: Not on file Physically Abused: Not on file Sexually Abused: Not on file Physically or Sexually Abused: Not on file Depression: Not at risk (04/07/2024) Received from [facility] PHQ-2 Patient Health Questionnaire-2 Score: 0 [...] , T3 TO (more content not included)...[facility]12-02-2024 NotePatient Education Nutrition BMI for Adults [...] for Disease Control and Prevention: cdc.gov ??? [place] Heart Association: heart.org ??? National Heart, Lung, and Blood [place]: nhlbi.nih.gov This information is not intended to replace advice given to you by your health care provider. Make sure you discuss any questions you have with your health care provider. Document Revised: 01/21/2023 Document Reviewed: 01/14/2023 [employer] Patient Education ? 2023 DataContact.[facility] 04-07-2024 History of Present illness Narrative* Mary Schneider MD - 04/07/2024 10:45 AM EST HEAD AND NECK SURGERY CONSULT RUST Referring Provider: Dr. Ham HPI I had [...] lymph node Procedure Note: Diagnostic Flexible Laryngoscopy (63637) Indication: patient symptoms requiring evaluation of pharyngeal/laryngeal/hypopharyngeal [...] for this, has a pacemaker and seeing banker mason soon. Will follow up biopsy and call him with the results Mary Schneider MD documented in this [facility] Work Phone: [phone]) 981-897211-13-2024 History of Present illness Narrative* Luc Ham MD - 03/29/2024 10:20 AM EST Subjective Patient ID: Jeremie Bennett is a 83 y.o. male who presents for Mouth Lesions (Follow up PET [facility] 03/27/24) Pet scan reviewed and there is [...] 29.0-29.9,adult 01/27/2024 Cardiac dysrhythmia 04/03/2022 Ventricular tachycardia ([facility]/HCC) 01/27/2024 Carpal tunnel syndrome, left 01/27/2024 Carpal tunnel syndrome, right 01/27/2024 Cervical lymphadenopathy 01/27/2024 Spondylosis of cervical spine 01/27/2024 Cervical vertebral fusion 04/03/2022 Spondylosis of lumbar spine 01/27/2024 Chronic venous insufficiency 01/27/2024 Colon polyp 01/27/2024 Type 2 diabetes mellitus ([facility]) 01/27/2024 Type 2 diabetes mellitus without complication, without long-term current use of insulin ([facility]) 04/14/2023 Diabetic autonomic neuropathy associated with type 2 diabetes mellitus ([facility]) 04/14/2023 Diabetic peripheral neuropathy associated with type 2 diabetes mellitus ([facility]) 01/27/2024 Diverticulosis 01/27/2024 Dysphagia 04/14/2023 Essential hypertension ([facility]) 04/03/2022 Excessive daytime sleepiness 01/27/2024 FH: stomach cancer 04/14/2023 Chronic GERD 01/27/2024 GERD with apnea 01/27/2024 Glaucoma ([facility]) 04/03/2022 Hemorrhoids 01/27/2024 History of colon polyps 01/27/2024 History of malignant neoplasm of prostate 04/03/2022 [place] (hard of hearing) 04/03/2022 Hypercholesterolemia ([facility]) 04/03/2022 Hyperlipidemia ([facility]) 04/03/2022 Insomnia 04/03/2022 Internal derangement of right knee 01/27/2024 Irregular bowel habits 04/14/2023 Lump on neck 04/14/2023 Migraines ([facility]) 04/03/2022 Aortic valve regurgitation 04/26/2019 Mitral valve regurgitation 04/26/2019 Neuropathy 04/03/2022 NPH (normal pressure hydrocephalus) ([facility]) 04/03/2022 Central sleep apnea 01/27/2024 Obstructive sleep [...] 2005 ablation OTHER SURGICAL HISTORY 2007 sphincterotomy [place] CHOLECYSTECTOMY 02/2020 Laparoscopic Cholecystectomy - [place] IMPLANT ARTIFICIAL SPHINCTER 2017 PROSTATE 2000 TONSILLECTOMY 1970 Allergies Allergen Reactions Niacin Itching and Unknown Wound Dressing Adhesive Unknown Current Outpatient Medications on File Prior to Visit Medication Sig Dispense Refill amLODIPine (Norvasc) 5 MG tablet Take 5 mg by mouth in the morning. aspirin 81 MG EC tablet Take 81 mg by mouth in the morning. wxrermcmip-xusjfzidbcmme-rmcalnnt 50-325-40 MG tablet Take 1 tablet by [...] completed for surveillance exams. documented in this encounterCox [id number] History of Present illness Narrative* Kandi Rodriguez, [...] PATIENT PRESENTS WITH AN IMPLANTABLE OR ATTACHED PROCUREMENT AGENT: No CREATININE: No results found for: CREAT [...] 10:14 AM PAGER/CONTACT #: documented in this encounterOhio [facility] System[facility]-2024 NoteHNO ID: [id number] Author: KANDI RODRIGUEZ RT (R) Service: ? [...] PATIENT PRESENTS WITH AN IMPLANTABLE OR ATTACHED PROCUREMENT AGENT: No CREATININE: No results found for: CREAT [...] safety can be found using this link: [email or web address] SIGNATURE: RT Jennifer(R) PATIENT NAME: Jeremie Bennett DATE: March 27, 2024 TIME: 10:14 AM PAGER/CONTACT #:[facility]10-23-2024 History of Present illness Narrative* [...] 29.0-29.9,adult 01/27/2024 Cardiac dysrhythmia 04/03/2022 Ventricular tachycardia ([facility]/HCC) 01/27/2024 Carpal tunnel syndrome, left 01/27/2024 Carpal tunnel syndrome, right 01/27/2024 Cervical lymphadenopathy 01/27/2024 Spondylosis of cervical spine 01/27/2024 Cervical vertebral fusion 04/03/2022 Spondylosis of lumbar spine 01/27/2024 Chronic venous insufficiency 01/27/2024 Colon polyp 01/27/2024 Type 2 diabetes mellitus ([facility]) 01/27/2024 Type 2 diabetes mellitus without complication, without long-term current use of insulin ([facility]) 04/14/2023 Diabetic autonomic neuropathy associated with type 2 diabetes mellitus ([facility]) 04/14/2023 Diabetic peripheral neuropathy associated with type 2 diabetes mellitus ([facility]) 01/27/2024 Diverticulosis 01/27/2024 Dysphagia 04/14/2023 Essential hypertension ([facility]) 04/03/2022 Excessive daytime sleepiness 01/27/2024 FH: stomach cancer 04/14/2023 Chronic GERD 01/27/2024 GERD with apnea 01/27/2024 Glaucoma ([facility]) 04/03/2022 Hemorrhoids 01/27/2024 History of colon polyps 01/27/2024 History of malignant neoplasm of prostate 04/03/2022 [place] (hard of hearing) 04/03/2022 Hypercholesterolemia ([facility]) 04/03/2022 Hyperlipidemia ([facility]) 04/03/2022 Insomnia 04/03/2022 Internal derangement of right knee 01/27/2024 Irregular bowel habits 04/14/2023 Lump on neck 04/14/2023 Migraines ([facility]) 04/03/2022 Aortic valve regurgitation 04/26/2019 Mitral valve regurgitation 04/26/2019 Neuropathy 04/03/2022 NPH (normal pressure hydrocephalus) ([facility]) 04/03/2022 Central sleep apnea 01/27/2024 Obstructive sleep [...] soiling 04/03/2022 Fecal urgency 04/14/2023 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[facility]/HCC) 01/27/2024 Lower abdominal pain 04/03/2022 Pain of [...] Diverticulitis GERD (gastroesophageal reflux disease) HTN (hypertension) ([facility]/HCC) Migraine headache ([facility]) Pain management Paronychia of great toe Personal history of other medical treatment 04/2018 Sinus tarsi syndrome of right foot Sleep apnea Toe pain, right Type 2 diabetes mellitus with diabetic neuropathy ([facility]) Past Surgical History: Procedure Laterality Date CARDIAC CATHETERIZATION 08/30/2019 CATARACT EXTRACTION Bilateral CERVICAL FUSION 2015 C3-C4-C5 CHOLECYSTECTOMY HERNIA REPAIR 2002 INSERT / REPLACE / REMOVE PACEMAKER 2015 pacemaker insertion OTHER SURGICAL HISTORY 2004 ablation OTHER SURGICAL HISTORY 2007 sphincterotomy [place] CHOLECYSTECTOMY 02/2020 Laparoscopic Cholecystectomy - [place] IMPLANT ARTIFICIAL SPHINCTER 2017 PROSTATE 2000 TONSILLECTOMY 1970 Allergies Allergen Reactions Niacin Itching and Unknown Wound Dressing Adhesive Unknown Current Outpatient Medications on File Prior to Visit Medication Sig Dispense Refill amLODIPine (Norvasc) 5 MG tablet Take 5 mg by mouth in the morning. aspirin 81 MG EC tablet Take 81 mg by mouth in the morning. qpjqbhrssz-dizabczyncbao-uwtldfgr 50-325-40 MG tablet Take 1 tablet by [...] suspicious for the primary documented in this encounterCox [id number] Telephone encounter Note* Telephone Encounter - Antoinette Ham - 03/06/2024 11:18 AM EDT Pt is scheduled for 03/08/[address] Ham[address] [facility] [id number] Miscellaneous Notes* Telephone Encounter - Antoinette Ham - 03/06/2024 11:18 AM EDT Pt is scheduled for 03/08/[address] Ham. 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) 01/27/2024 BMI 29.0-29.9,adult 01/27/2024 Cardiac dysrhythmia 04/03/2022 Ventricular tachycardia ([facility]/HCC) 01/27/2024 Carpal tunnel syndrome, left 01/27/2024 Carpal tunnel syndrome, right 01/27/2024 Cervical lymphadenopathy 01/27/2024 Spondylosis of cervical spine 01/27/2024 Cervical vertebral fusion 04/03/2022 Spondylosis of lumbar spine 01/27/2024 Chronic venous insufficiency 01/27/2024 Colon polyp 01/27/2024 Type 2 diabetes mellitus ([facility]) 01/27/2024 Type 2 diabetes mellitus without complication, without long-term current use of insulin ([facility]) 04/14/2023 Diabetic autonomic neuropathy associated with type 2 diabetes mellitus ([facility]) 04/14/2023 Diabetic peripheral neuropathy associated with type 2 diabetes mellitus ([facility]/HCC) 01/27/2024 Diverticulosis 01/27/2024 Dysphagia 04/14/2023 Essential hypertension ([facility]) 04/03/2022 Excessive daytime sleepiness 01/27/2024 FH: stomach cancer 04/14/2023 Chronic GERD 01/27/2024 GERD with apnea 01/27/2024 Glaucoma ([facility]) 04/03/2022 Hemorrhoids 01/27/2024 History of colon polyps 01/27/2024 History of malignant neoplasm of prostate 04/03/2022 [place] (hard of hearing) 04/03/2022 Hypercholesterolemia ([facility]) 04/03/2022 Hyperlipidemia ([facility]) 04/03/2022 Insomnia 04/03/2022 Internal derangement of right knee 01/27/2024 Irregular bowel habits 04/14/2023 Lump on neck 04/14/2023 Migraines ([facility]/HCC) 04/03/2022 Aortic valve regurgitation 04/26/2019 Mitral valve regurgitation 04/26/2019 Neuropathy 04/03/2022 NPH (normal pressure hydrocephalus) ([facility]) 04/03/2022 Central sleep apnea 01/27/2024 Obstructive sleep apnea 04/03/2022 Osteoarthritis 04/03/2022 Osteoarthritis of carpometacarpal (CMC) joint of left thumb 01/27/2024 Osteochondritis dissecans of right ankle 01/27/2024 Other specified disorders of synovium, right ankle and foot 01/27/2024 Pain in right ankle and joints of right foot 01/27/2024 Pancreatic cyst ([facility]) 04/14/2023 Paresthesia of both hands 01/27/2024 Edema of lower extremity 04/26/2019 Polyneuropathy associated with underlying disease ([facility]) 01/27/2024 Presence of cardiac pacemaker 03/14/2021 Prostate cancer ([facility]) 04/03/2022 Prostatitis 04/14/2023 Skin cancer 04/03/2022 Swollen lymph nodes 04/14/2023 Thoracic aortic ectasia ([facility]) 01/27/2024 Vitamin D deficiency 04/03/2022 Resolved Ambulatory Problems Diagnosis Date Noted Bloating 01/27/2024 Cellulitis of toe of left foot 01/27/2024 Cellulitis of toe of right foot 01/27/2024 Chest wall pain 04/03/2022 Gallstones 04/03/2022 COVID-19 11/10/2022 Entrapment of left ulnar nerve 01/27/2024 Entrapment of right ulnar nerve 01/27/2024 Fecal soiling 04/03/2022 Fecal urgency 04/14/2023 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[facility]) 01/27/2024 Lower abdominal pain 04/03/2022 Pain of [...] Diverticulitis GERD (gastroesophageal reflux disease) HTN (hypertension) ([facility]) Migraine headache ([facility]) Pain management Paronychia of great toe Personal history of other medical treatment 04/2018 Sinus tarsi syndrome of right foot Sleep apnea Toe pain, right Type 2 diabetes mellitus with diabetic neuropathy ([facility]) Past Surgical History: Procedure Laterality Date CARDIAC CATHETERIZATION 08/30/2019 CATARACT EXTRACTION Bilateral CERVICAL FUSION 2016 C3-C4-C5 CHOLECYSTECTOMY HERNIA REPAIR 2002 INSERT / REPLACE / REMOVE PACEMAKER 2015 pacemaker insertion OTHER SURGICAL HISTORY 2005 ablation OTHER SURGICAL HISTORY 2007 sphincterotomy [place] CHOLECYSTECTOMY 02/2020 Laparoscopic Cholecystectomy - [place] IMPLANT ARTIFICIAL SPHINCTER 2017 PROSTATE 2000 TONSILLECTOMY 1970 Allergies Allergen Reactions Niacin Itching and Unknown Wound Dressing Adhesive Unknown Current Outpatient Medications on File Prior to Visit Medication Sig Dispense Refill amLODIPine (Norvasc) 5 MG tablet Take 5 mg by mouth in the morning. aspirin 81 MG EC tablet Take 81 mg by mouth in the morning. dwoxsxufct-ofnmqprcmqjdc-tabkebtn 50-325-40 MG tablet Take 1 tablet by [...] a core needle bx documented in this encounterCox [id number] History of Present illness Narrative* NILAY Morales [...] -he denies any weakness or trouble with showcase trimmer Chronic back/neck pain -his neck pain has been about the same since last visit -he denies pain into the arms -he admits a few CORTEZ -he has 3-4 per month -CORTEZ located occipital -he is wanting an abortive medication -he was on Fiorcet and states this helped -Back pain in low back -he is seeing pain management , Dr. Robins in [place] -he is following up with them next [...] Oral, Daily aspirin 81 mg, Oral, Daily zmbfdjvaqw-rblkfqpzhkgeu-uyhokcvw 50-325-40 MG tablet 1 tablet, Oral, Every [...] Daily, Do not crush or chew. Lancets (DineGasmtouch ultrasoft) lancets 1 each, Other, As needed, [...] 2005 ablation OTHER SURGICAL HISTORY 2007 sphincterotomy [place] CHOLECYSTECTOMY 02/2020 Laparoscopic Cholecystectomy - [place] IMPLANT ARTIFICIAL SPHINCTER 2017 PROSTATE 2000 TONSILLECTOMY [...] 2+ 2+ Patellar 2+ 2+ Coordination Right: Qslwxf-gw-uawo normal.Left: Jwqifx-mh-updm normal. Gait Casual gait is normal including [...] up in 6 months documented in this encounterCox [id number] Telephone encounter Note* Telephone Encounter - Carlitos Beckman - 02/07/2024 9:29 AM EDT Images from the original note were not included. IPMN surveillance. Review OSH images and advise please [place] [facility] [place] Pancreatography 11/09/2023 [facility]09-23-2024 Miscellaneous Notes* Telephone Encounter - Carlitos Beckman - 02/07/2024 9:29 AM EDT Images from the original note were not included. IPMN surveillance. Review OSH images and advise please [facility] MRI Chol[facility]logram Pancreatography 11/09/2023 * Telephone [...] and it was completed in 12/2023 at [facility]. Our office will request results for Dr. Pringle's review. Follow up will be determined upon Dr. Pringle's review of results. documented in this encounterOhio State Health System09-20-2024 Telephone encounter Note * Telephone Encounter - Carlitos Beckman - 02/04/2024 9:03 AM EDT Surveillance imaging completed at OSH for IPMN surveillance. [facility]09-18-2024 Telephone encounter Note* Telephone Encounter - Carlitos Beckman - 02/02/2024 8:57 AM EDT Call to patient to discuss plan of care. Surveillance imaging needed to evaluate pancreas cyst. Dx: IPMN Per Dr. Vaishali Pringle- recommended repeat MRI in 1 year Last imaging 02/17/2024 Orders placed: MRI Pancreas w/wo IVCON Patient's local GI ordered MRI and it was completed in 12/2023 at [facility]. Our office will request results for Dr. Pringle's review. Follow up will be determined upon Dr. Pringle's review of results. [facility]09-17-20[facility] History of Present illness Narrative* Luc Ham [...] History of malignant neoplasm of prostate 04/03/2022 [place] ([place] of hearing[place] 04/03/2022 Hypercholesterolemia ([facility]) 04/03/2022 Hyperlipidemia ([facility]/HCC) 04/03/2022 Insomnia 04/03/2022 Internal derangement of right knee 01/27/2024 Irregular bowel habits 04/14/2023 Lump on neck 04/14/2023 Migraines (CMS/HCC) 04/03/2022 Aortic valve regurgitation 04/26/2019 Mitral valve regurgitation 04/26/2019 Neuropathy 04/03/2022 NPH (normal pressure hydrocephalus) ([facility]) 04/03/2022 Central sleep apnea 01/27/2024 Obstructive sleep [...] reflux disease) HTN (hypertension) (CMS/HCC) Migraine headache ([facility]) Pain management Paronychia of great toe Personal [...] 2005 ablation OTHER SURGICAL HISTORY 2007 sphincterotomy RI CHOLECYSTECTOMY 02/2020 Laparoscopic Cholecystectomy - [place] IMPLANT ARTIFICIAL SPHINCTER 2017 PROSTATE 2000 TONSILLECTOMY 1970 Allergies Allergen Reactions Niacin Itching and Unknown Wound Dressing Adhesive Unknown Current Outpatient Medications on File Prior to Visit Medication Sig Dispense Refill amLODIPine (Norvasc) 5 MG tablet Take 5 mg by mouth in the morning. aspirin 81 MG EC tablet Take 81 mg by mouth in the morning. otjtzyclpk-bbxeekwhqejxn-gatucazy 50-325-40 MG tablet Take 1 tablet by [...] actual location and nature documented in this encounterCox [id number] Hospital Discharge instructions Patient Education 09/17/2023 09:05:07 [...] grapefruit, pineapple, and nury. Vegetables Deep-fried vegetables. Turkish fries. Any vegetables prepared with added fat. [...] provider. Document Revised: 11/11/2020 Document Reviewed: 11/11/2020 [employer] Media Patient Education 2022 DataContact. Follow Up Care 06/25/2023 12:06:59 With:Sammi CASON, NICOL Mccrary, [facility] Address: [address], [address] [place] [address]- [phone] When:3 months [facility] 01-15-2024 Evaluation note* Encounter Date [...] months. A prescription was sent to the [employer] for new supplies throughout the year. He [...] sleepiness, or poor response to treatment. . [facility] Other 01-09-2024 Hospital Discharge instructions Patient Education [...] grapefruit, pineapple, and nury. Vegetables Deep-fried vegetables. Turkish fries. Any vegetables prepared with added fat. [...] provider. Document Revised: 11/11/2020 Document Reviewed: 11/11/2020 [employer] Patient Education 2022 DataContact. Follow Up Care 02/25/2023 14:06:51 With:Anjali Ruby CNP Address: When:1 month [facility] [id number] Miscellaneous Notes* Telephone Encounter - Lolly Dumont - 04/05/2023 9:44 AM EST Received records from [facility]. Reports for imaging listed below scanned. Images pushed through 09/27/2019 US Right Upper Quad 03/31/2020 CT ABD/PEL US Right Upper Quad [facility] MRI Abdomen 02/22/2023 US Soft Tissue Head & Neck Received many misc. labs & ER reports Operative Note & pathology from Laparoscopic Cholecystectomy Patient seen 04/01, please review, thank you! [facility] Nurse Note* Debby Holland MA - 04/01/2023 [...] Temperature: No Drains: No documented in this [facility]Ohio [facility]11-16-2023 History of Present illness Narrative* Vaishali Pringle [...] Level: 4 - Moderate documented in this encounterOhio [facility]11-16-2023 NoteHNO ID: [id number] Author: Vaishali Pringle MD Service: ? Author [...] Pringle MD Medical De (more content not included)...[facility]10-25-2023 Hospital Discharge instructions Patient Education [...] Follow these instructions at home: Medicines Take gqnt-wpt-mysfvoe and prescription medicines only as told by [...] Watch your condition for any changes. Take mlbk-rai-rdrbsmq and prescription medicines only as told by [...] provider. Document Revised: 06/21/2020 Document Reviewed: 09/11/2019 [employer] Patient Education 2022 DataContact. Follow Up Care 03/09/2023 09:58:32 With:Anjali Ruby CNP Address: When:1 to 2 weeks Comments:Following EGD. [facility] 10-12-2023 Hospital Discharge [...] Follow these instructions at home: Medicines Take qbpp-tlw-ynzyzco and prescription medicines only as told by your health care provider. If you were prescribed an antibiotic medicine, take it as told by your health care provider. Do notstop taking the antibiotic even if you start to feel better. Eating and drinking Make any diet changes as told by your health care provider. Work with a diet and nutritional yeast supervisor (dietitian) to create an eating plan that [...] Document Reviewed: 12/21/2020 [employer] Patient Education 2022 DataContact. Follow Up Care 02/22/2023 16:17:47 With:Anjali Ruby CNP Address: When:3 months [facility] 09-15-2023 Evaluation note* [...] months. A prescription was sent to the [employer] for new supplies throughout the year. He [...] sleepiness, or poor response to treatment. . [facility] Other 08-29-2023 Hospital Discharge instructions Patient Education [...] including vitamins, herbs, eye drops, creams, and rvwe-pgc-ssvjjen medicines. Any problems you or family members [...] provider tells you to take them. Taking wrct-idn-sjokqhb medicines, vitamins, herbs, and supplements. General instructions [...] provider. Document Revised: 04/27/2022 Document Reviewed: 12/24/2021 [employer] Patient Education 2022 DataContact. Follow Up Care 12/28/2022 08:53:11 With:Anjali Ruby CNP Address: When:1 to 2 weeks Comments:Following EGD/Colonoscopy. [facility] 05-30-2023 Evaluation note* Encounter Date [...] sleepiness, or poor response to treatment. . [facility] Other 05-09-2023 Hospital Discharge instructions Patient Education [...] managed at home with rest, fluids, and qiar-czc-jxxndkp medicines. Serious symptoms may be treated in [...] water are not available, use alcohol-based hand adult basic education teacher. Make sure that all people in your [...] managed at home with rest, fluids, and gaeg-oqj-qosjbgf medicines. This information is not intended to replace advice given to you by your health care provider. Make sure you discuss any questions you have with your health care provider. Document Revised: 04/23/2022 Document Reviewed: 04/23/2022 [employer] Patient Education 2022 DataContact. Follow Up Care 09/22/2022 16:24:11 With:Demetrius Cooper Address: [address] [place] [address] Business (2) When:09/25/2022 18:12:09 [facility]05-09-2023 Evaluation note* Encounter Date Diagnosis Assessment [...] no improvement in 2 to 3 days. [facility] Other 04-11-2023 NoteCONSULTATION CONSULTATION DATE: 08/25/2022 TO: [...] our patients to inform us about any rqgj-paf-nmamnzi medications or herbal remedies/nutritional supplements/alternative remedies. 2. [...] treatment options with their primary care provider.[facility] [place] [id number] Evaluation note * Encounter Date Diagnosis Assessment [...] symptoms if he does not take his ykls-ziv-ctmmuvq hypnotic, sleep hygiene issues may also be [...] neuropathy pain Jul, Coronary artery disease involving [place] heart without angina pectoris, unspecified vessel or [...] he does have a defibrillator in place [facility] Other 03-09-2023 NoteCONSULTATION CONSULTATION DATE: 07/23/2022 HISTORY [...] gain authorization to hold the Plavix pre-procedure.[id number] NotePROCEDURE: XR ANKLE RT MIN 3 VIEWS COMPARISON: 08/22/2020 HISTORY: Pain of right ankle joint FINDINGS: BONES:No acute fracture or dislocation. Moderate enthesopathic spurring of the calcaneus. Degenerative changes with bone fragments along the inferior medial malleolus, stable. SOFT TISSUES:Negative. No visible soft tissue swelling. EFFUSION:None visible. OTHER: Negative. IMPRESSION: Stable degenerative changes Electronically authenticated by: ERWIN FALCON Date: 2022-07-22 10:37[facility] [id number] NotePROCEDURE: XR FOOT RT MIN 3 VIEWS [...] authenticated by: CLARISSA GARCIA Date: 2022-06-16 15:25[facility] [id number] Hospital Discharge instructions Patient Education 05/26/2022 13:46:25 [...] Address: [facility] [address] [place] [address]- Business (1) When: Unknown Comments:Office will call to schedule follow up [facility]08-11-2022 NoteCONSULTATION PROCEDURE DATE: 12/25/2021 PRE AND [...] will be followed up in the clinic.[facility] 12-25-2021 NoteCONSULTATION CONSULTATION DATE: 12/25/2021 This [...] recently seen at an urgent care in [place] for left thumb pain and joint swelling. [...] in three months' time unless otherwise indicated.[facility] [id number] Evaluation note* Encounter Date Diagnosis Assessment Notes [...] will help you get into a specialist. [facility] Other Chitp complaint+Reason for visit Narrative* Chief Complaint N54.2 Self Referral [facility] Work Phone: Chijg complaint+Reason for visit Narrative* Chief Complaint N54.2 Self Referral [id number] m54.12 m54.2 [facility] Work Phone: Chioy complaint+Reason for visit Narrative* Chief Complaint N54.2 Self Referral [id number] m54.12 m54.2 isidro, [id number] [facility] Work Phone: Discharge summary Author Zeke Brennan [facility] Note Date/Time August 21, 2024 2:14 pm [facility] [address] [place] [address] Discharge Summary Signed Patient: Jeremie Bennett MR#: [id number] : 1940 Acct:[id number] Age/Sex: 83 / M Adm Date: 5 Loc: Room: [address] [place] [address]: Zeke Brennan MD Copies to: MD Demetrius Fam MD~ Providers Date of Discharge: 08/21/24 Discharging Provider: Zeke Brennan Primary Care Provider: Demetrius Cooper Consults: 08/20/24 22:01 Consult to Infectious Diseases Routine Comment: Consulting Provider: Yahs Thomas Reason For Exam: Fever of unknown [...] Continuity of Care Document Health Concerns: A [facility] screening has identified you as FRAIL or [...] Four Ways to Beat the Frailty Risk [email or web address]-xxzd- wyan-ev-vovj-qaa-orsgome-hgwd Exam Physical Exam Vital Signs: Temp Pulse [...] % (Auto) 75.8, Lymph % (Auto) 9.0, [place] % (Auto) 13.6, Eos % (Auto) 1.0, Baso % (Auto) 0.6, Nucleat RBC Rel Count 0.1, Neut # (Auto) 4.7, Lymph # (Auto) 0.6 L, [place] # (Auto) 0.8, Eos # (Auto) 0.1, [...] Appearance Clear, Urine pH 5.5, Ur Specific [place] 1.017, Urine Protein Negative, Urine Glucose (UA) [...] % (Auto) 77.0, Lymph % (Auto) 10.5, [place] % (Auto) 11.3, Eos % (Auto) 0.7, Baso % (Auto) 0.5, Nucleat RBC Rel Count 0.2, Neut # (Auto) 5.7, Lymph # (Auto) 0.8 L, [place] # (Auto) 0.8, Eos # (Auto) 0.1, [...] signed by Zeke Brennan MD> 08/21/24 1414 [facility] Work Phone: Evaluation + Plan note No data available for this section [facility] Future Appointments Appointment Date:11/23/2022 09:00:00 AM Scheduled Provider:Demetrius Cooper MD Location:[facility] Appointment Type: Open [facility] Future Appointments Appointment Date:12/15/2022 12:00:00 PM Scheduled Provider:Anjali Ruby CNP Location[facility] Appointment Type:[facility] Patient Appointment Date:05/31/2023 09:00:00 AM Scheduled Provider:Demetrius Cooper MD Location:[facility] Appointment Type: Open Appointment Date:11/08/2023 01:00:00 PM Scheduled Provider: Location:[facility] Appointment Type: Medicare Wellness Subsequent Future Scheduled Tests Laboratory* HgbA1c 11/23/22 * CBC w/ Auto Diff 11/23/22 * Comprehensive Metabolic Panel 11/23/22 * [facility] Appointments Appointment Date:05/31/2023 09:00:00 AM Scheduled Provider:Demetrius Cooper MD Location:[facility] Appointment Type: Open Appointment Date:11/08/2023 01:00:00 PM Scheduled Provider: Location:[facility] Appointment Type: Medicare Wellness Subsequent Future Scheduled Tests Laboratory* HgbA1c 11/23/22 * CBC w/ Auto Diff 11/23/22 * Comprehensive Metabolic Panel 11/23/22 * Lipid Panel 11/23/22 [facility] Future Appointments Appointment Date:05/31/2023 09:00:00 AM Scheduled Provider:Demetrius Cooper MD Location:[facility] Appointment Type: Open Appointment Date:11/08/2023 01:00:00 PM Scheduled Provider: Location:[facility] Appointment Type: Medicare Wellness Subsequent Future Scheduled Tests Laboratory* HgbA1c 11/23/22 * CBC w/ Auto Diff 11/23/22 * Comprehensive Metabolic Panel 11/23/22 * Lipid Panel 11/23/22 Radiology* CT Abdomen w/ Contrast 01/12/23 [facility] evaluation + Plan note Future Appointments Appointment Date:05/03/2023 01:40:00 PM Scheduled Provider:Anjali Ruby CNP Location[facility] Appointment Type:[facility] Follow Up Appointment Date:05/31/2023 09:00:00 AM Scheduled Provider:Demetrius Cooper MD [facility] Type: Open Appointment Date:11/08/2023 01:00:00 PM Scheduled Provider: Location:[facility] Appointment Type: Medicare Wellness Subsequent Future Scheduled Tests Laboratory* HgbA1c 11/23/22 * CBC w/ Auto Diff 11/23/22 * Comprehensive Metabolic Panel 11/23/22 * Lipid Panel 11/23/22 [facility] evaluation + Plan note Future Appointments Appointment Date:05/03/2023 01:40:00 PM Scheduled Provider:Anjali Ruby CNP Location:[facility] Appointment Type:[facility] Follow Up Appointment Date:05/31/2023 10:00:00 AM Scheduled Provider:Demetrius Cooper MD [facility] Type: Open Appointment Date:11/08/2023 01:00:00 PM Scheduled Provider: Location:[facility] Appointment Type:FM Medicare Wellness Subsequent Future Scheduled Tests Laboratory* HgbA1c 11/23/22 * CBC w/ Auto Diff 11/23/22 * Comprehensive Metabolic Panel 11/23/22 * Lipid Panel 11/23/22 [facility] evaluation + Plan note Future Appointments Appointment Date:05/03/2023 01:40:00 PM Scheduled Provider:Anjali Ruby CNP Location:[facility] Appointment Type:[facility] Follow Up Appointment Date:05/31/2023 10:00:00 AM Scheduled Provider:Demetrius Cooper MD [facility] Type: Open Appointment Date:11/08/2023 01:00:00 PM Scheduled Provider: Location:[facility] Appointment Type: Medicare Wellness Subsequent Diagnostic Tests Pending * O & P Exam, Routine 03/10/23 * Giardia lamblia, Direct Detection EIA 03/10/23 Future Scheduled Tests Laboratory* HgbA1c 11/23/22 * CBC w/ Auto Diff 11/23/22 * Comprehensive Metabolic Panel 11/23/22 * Lipid Panel 11/23/22 [facility] Future Appointments Appointment Date:05/31/2023 10:00:00 AM Scheduled Provider:Demetrius Cooper MD Location:[facility] Appointment Type: Open Appointment Date:06/25/2023 01:20:00 PM Scheduled Provider:Anjali Ruby CNP Location:[facility] Appointment Type:[facility] Follow Up Appointment Date:11/08/2023 01:00:00 PM Scheduled Provider: Location:[facility] Appointment Type:FM Medicare Wellness Subsequent Future Scheduled Tests Laboratory* HgbA1c 11/23/22 * CBC w/ Auto Diff 11/23/22 * Comprehensive Metabolic Panel 11/23/22 * Lipid Panel 11/23/22 [facility] Evaluation + Plan note Future Appointments Appointment Date:10/21/2023 03:00:00 PM Scheduled Provider:Inez Henderson MD Location:[facility] Appointment Type:[facility] Follow Up Appointment Date:11/08/2023 01:00:00 PM Scheduled Provider: Location:[facility] Appointment Type: Medicare Wellness Subsequent Appointment Date:11/29/2023 10:15:00 AM Scheduled Provider:Demetrius Cooper MD Location:[facility] Appointment Type: Open Future Scheduled Tests Laboratory* U Protein/Creat Ratio 05/31/23 * HgbA1c 11/23/22 * HgbA1c 05/31/23 * Microalbumin Level Urine 05/31/23 * CBC w/ Auto Diff 11/23/22 * Comprehensive Metabolic Panel 11/23/22 * Lipid Panel 11/23/22 [facility] Evaluation + Plan note Future Appointments Appointment Date:10/21/2023 03:00:00 PM Scheduled Provider:Inez Henderson MD Location:[facility] Appointment Type:[facility] Follow Up Appointment Date:11/08/2023 01:00:00 PM Scheduled Provider: Location:[facility] Appointment Type: Medicare Wellness Subsequent Appointment Date:11/29/2023 10:15:00 AM Scheduled Provider:Demetrius Cooper MD Location:[facility] Appointment Type: Open Diagnostic Tests Pending * Celiac Disease Comprehensive 09/17/23 Future Scheduled Tests Laboratory* U Protein/Creat Ratio 05/31/23 * HgbA1c 11/23/22 * HgbA1c 05/31/23 * Microalbumin Level Urine 05/31/23 * CBC w/ Auto Diff 11/23/22 * Comprehensive Metabolic Panel 11/23/22 * Lipid Panel 11/23/22 [facility] Future App[facility]ments Appointment Date:11/08/2023 01:00:00 PM Scheduled Provider: Location:[facility] Appointment Type: Medicare Wellness Subsequent Appointment Date:11/29/2023 10:15:00 AM Scheduled Provider:Demetrius Cooper MD Location:[facility] Appointment Type: Open Appointment Date:03/23/2024 02:45:00 PM Scheduled Provider:Inez Henderson MD Location:[facility] Appointment Type:[facility] Follow Up Future Scheduled Tests Laboratory* U Protein/Creat Ratio 05/31/23 * HgbA1c 11/23/22 * HgbA1c 05/31/23 * Microalbumin Level Urine 05/31/23 * CBC w/ Auto Diff 11/23/22 * Comprehensive Metabolic Panel 11/23/22 * Lipid Panel 11/23/22 Radiology* MRI Cholangiogram Pancreatography (mrcp) 10/21/23 [facility] Evaluation + Plan note Future Appointments Appointment Date:11/29/2023 10:15:00 AM Scheduled Provider:Demetrius Cooper MD Location:[facility] Appointment Type: Open Appointment Date:03/23/2024 02:45:00 PM Scheduled Provider:Inez Hendesron MD Location:[facility] Appointment Type:[facility] Follow Up Appointment Date:11/06/2024 02:30:00 PM Scheduled Provider: Location:[facility] Appointment Type:FM Medicare Wellness Subsequent Future Scheduled Tests Laboratory* U Protein/Creat Ratio 11/24/23 * U Protein/Creat Ratio 05/31/23 * HgbA1c 11/30/23 * HgbA1c 11/23/22 * HgbA1c 05/31/23 * Microalbumin Level Urine 11/24/23 * Microalbumin Level Urine 05/31/23 * CBC w/ Auto Diff 11/23/22 * Comprehensive Metabolic Panel 11/23/22 * Lipid Panel 11/08/23 * Lipid Panel 11/23/22 [facility] App[facility]ments Appointment Date:04/17/2024 10:00:00 AM Scheduled Provider:Demetrius Cooper MD Location:[facility] Appointment Type: Open Appointment Date:11/06/2024 02:30:00 PM Scheduled Provider: Location:[facility] Appointment Type:FM Medicare Wellness Subsequent Future Scheduled Tests Laboratory* U Protein/Creat Ratio 11/24/23 * U Protein/Creat Ratio 05/31/23 * HgbA1c 11/30/23 * HgbA1c 05/31/23 * Microalbumin Level Urine 11/24/23 * Microalbumin Level Urine 05/31/23 * Lipid Panel 11/08/23 Radiology* MRI Cholangiogram Pancreatography (mrcp) 03/23/24 [facility] Evaluation + Plan note Future Appointments Appointment Date:11/06/2024 02:30:00 PM Scheduled Provider: Location:[facility] Appointment Type:FM Medicare Wellness Subsequent Appointment Date:11/06/2024 03:30:00 PM Scheduled Provider:Demetrius Cooper MD Location:[facility] Appointment Type: Open Future Scheduled Tests Laboratory* U Protein/Creat Ratio 11/24/23 * U Protein/Creat Ratio 05/31/23 * HgbA1c 11/30/23 * HgbA1c 05/31/23 * Microalbumin Level Urine 11/24/23 * Microalbumin Level Urine 05/31/23 * Lipid Panel 11/08/23 [facility] evaluation + Plan note Future Appointments Appointment Date:11/21/2024 02:30:00 PM Scheduled Provider: Location:[facility] Appointment Type: Medicare Wellness Subsequent Appointment Date:11/21/2024 03:20:00 PM Scheduled Provider:Demetrius Cooper MD Location:[facility] Appointment Type: Open Diagnostic Tests Pending * Urine Culture 08/30/24 Future Scheduled Tests Laboratory* U Protein/Creat Ratio 11/24/23 * HgbA1c 11/30/23 * Microalbumin Level Urine 11/24/23 * Lipid Panel 11/08/23 [facility] evaluation noteNo Assessments Information Available [facility] assessment information available [facility] Work Phone: evaluation note* Diagnosis 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 [facility] Diagnosis 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 [facility] Diagnosis Onset Date Resolution Status Viral URI with cough noneact rosa Impacted cerumen, bilateral noneactive Central sleep apnea acute DM (diabetes mellitus) acute Essential hypertension acute Obstructive sleep apnea acut e [facility] Work Phone: evaluation note* Diagnosis 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 [facility] Diagnosis Migraine without aura and without [...] of digestive system [facility]* Diagnosis Oral ulcer- Primary Other and [...] mouth, part unspecified documented in this encounter [facility] Work Phone: Evaluation note* Diagnosis Parotid mass- Primary Swelling, mass, or lump in head and neck documented in this encounter [facility] HealthcareEvaluation [facility]* Diagnosis Malignant neoplasm of floor [...] stated as uncontrolled documented in this encounter [facility] Work Phone: Evaluation note* 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 head, face, and neck documented in this encounter [facility] Work Phone: Evaluation note* Diagnosis Enlarged submental lymph node documented in this encounter [facility] Work Phone: Evaluation note* Diagnosis Poor intravenous access- Primary 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, unspecified site documented in this encounter [facility]* Diagnosis Sensorineural hearing loss, bilateral- Primary Tinnitus, bilateral Unspecified tinnitus documented in this encounter [facility] HealthcareEvaluation note* Diagnosis Personal history of malignant neoplasm of head and neck- Primary Personal history of malignant neoplasm of other site Dysphagia, unspecified type documented in this encounter [facility] Work Phone: Evaluation note* Diagnosis Esophageal dysphagia- Primary Dysphagia, pharyngoesophageal phase documented in this encounter [facility] Healthcare[facility] note* Diagnosis Vertigo- Primary Dizziness and giddiness Lumbar radiculopathy Thoracic or lumbosacral neuritis or radiculitis, unspecified Chronic bilateral low back pain, unspecified whether sciatica present Degenerative disc disease, cervical Migraine without aura and without status migrainosus, not intractable (CMS/HCC) Polyneuropathy Unspecified hereditary and idiopathic peripheral neuropathy documented in this encounter [facility] HealthcareEvaluation [facility]* Diagnosis Esophageal dysphagia- Primary Dysphagia, pharyngoesophageal phase 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, unspecified site documented in this encounter [facility] HealthcareEvaluation note* Diagnosis Personal history of malignant neoplasm of head and neck- Primary Personal history of malignant neoplasm of other site G tube feedings (Multi) At risk for malnutrition documented in this encounter [facility] Work Phone: Evaluation note* Diagnosis Esophageal dysphagia- Primary Dysphagia, pharyngoesophageal phase Carcinoma of oropharynx (HCC) Malignant neoplasm of oropharynx, unspecified site documented in this encounter [facility] HealthcareEvaluation note* Diagnosis Esophageal dysphagia- Primary Dysphagia, pharyngoesophageal phase [facility] - Reported* Type Description Date Medical History DM (diabetes mellitus) Medical History HTN (hypertension) Medical History Hypercholesteremia Medical History Vitamin D deficiency, unspecifie d Medical History CAD (coronary artery disease) Surgical History Neck Surgery Surgical History cholecystectomy Surgical History cardiac stent Surgical History prostatectomy Surgical History hernia Hospitalization History see above Perosphere Other History general Narrative - Reported* Type [...] Surgical History hernia Hospitalization History see above Perosphere Other History of Present illness Narrative* Veena [...] I'll see him PRN documented in this encounterNOVT HealthcareHistory of Present illness Narrative * Veena [...] 2005 ablation OTHER SURGICAL HISTORY 2007 sphincterotomy RI CHOLECYSTECTOMY 02/2020 Laparoscopic Cholecystectomy - [place] RI IMPLANT ARTIFICIAL SPHINCTER 2017 PROSTATE 2000 TONSILLECTOMY [...] prior to the visit. documented in this [facility]Progress [facility] Discharge instructions No data available for this section [facility] Discharge instructionsAmbulatory Orders* Referral to Palliative Medicine Time Frame: 06/14/24, Location: None Selected * RISE Order Location: None Selected [facility] Work Phone: Progress note No data available for this section [facility] Author Talib Faustin [facility] Note Date/Time June 14, 2024 1 1:06am [facility] [place] [address] Cancer Center Note Signed Patient: Jeremie Bennett MR#: [id number] : 1940 Acct:[id number] Age/Sex: 83 / M Type: REG AMB [...] by IHC was equivocal. 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 [...] positive squamous cell carcinoma. Tumor board at [facility] in [place] [facility] and the recommended concurrent chemoradiation. Past [...] with concurrent chemoradiation. Since he lives in [place] he was referred by Dr. Mary Schneider from ENT at [facility] to our medical oncology and radiation oncology at [facility]. He is referred to medical oncology [...] PO DAILY aspirin 81 mg PO DAILY xebclet-nbzwulpyjarqd-kpmbqfjf 250-250-65 mg (Excedrin Migraine) 1 tab PO [...] card, magnet, caregiver resource list, [facility] nutrition guide, and cancer rehabilitation pamphlet provided [...] to have pace maker replaced 07/10/2024 at [facility]. [facility] Medical History Medical History (Updated 06/14/24 @ [...] Display Dictated By: Talib Faustin MD DD/ [id number] Signed By: <Electronically signed by Talib Faustin MD> 06/14/24 1102 [facility] Work Phone: Progress note Author Talib Faustin [facility] Note Date/Time July 12, 2024 9:20am [facility] [place] [address] Cancer Center Note Signed Patient: Jeremie Bennett MR#: [id number] : 1940 Acct:[id number] Age/Sex: 83 / M Type: REG AMB [...] by IHC was equivocal. As per the [facility] tumor board recommendation is either [...] his week 1 of cisplatin. Labs at [facility] on 07/03/24 revealed hgb 13.3, cr is 1.0. He is having his labs here today.He had his pacemaker placed on 07/10/24 in [place]. 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 [...] positive squamous cell carcinoma. Tumor board at [facility] in [place] [facility] and the recommended concurrent chemoradiation. Past [...] with concurrent chemoradiation. Since he lives in [place] he was referred by Dr. Mary Schneider from ENT at [facility] to our medical oncology and radiation oncology at [facility]. He is referred to medical oncology [...] his week 1 of cisplatin. Labs at [facility] on 07/03/24 revealed hgb 13.3, cr is 1.0. He is having his labs here today.He had his pacemaker placed on 07/10/24 in [place]. Rest of 14 point systems were reviewed [...] PO QAM aspirin 81 mg PO DAILY wsqogne-beakhaagbbfsk-tyllkhwd 250-250-65 mg (Excedrin Migraine) 1 tab PO [...] other concerns voiced at time of intake. [facility] Medical History Medical History (Updated 07/06/24 @ [...] signed by Talib Faustin MD> 07/12/24 0920 [facility] Work Phone: Progress note Author Zeke Brennan [facility] Note Date/Time August 21, 2024 2:14 pm [facility] [address] [place] [address] Hospitalist Progress Note Signed Patient: Jeremie Bennett MR#: [id number] : 1940 Acct:[id number] Age/Sex: 83 / M Adm Date: 5 Loc: 3T Room: 5M3616-0 Type: ADM IN Attending Dr: Zeke Brennan [...] of care and confirmed it with the resident/student/COORDINATOR [employer]. This patient presented to the emergency department [...] spray 08/21/24 09:00 08/21/24 09:02 Fluticasone Propionate [place] [address] [place]/16 Gm Bottle INTRANASAL 08/21/25 08:59 2 spray [...] Drops/2.5 Ml Bottle EYE-BOTH 08/21/25 20:59 QPM [facility] Lidocaine/Prilocaine 1 applic 08/20/24 21:59 Lidocaine-Prilocaine Cr 2.5-2.5% 5 Gm Tube TOPICAL 08/20/25 21:58 ONCE PRN pain Metformin HCl 500 mg 08/21/24 08:00 08/21/24 09:00 Metformin 500 Mg Tablet PO 08/21/25 07:59 500 mg DAILY@0800 [facility] Administration Multi-Ingredient Mouthwash/Gargle 10 ml 08/20/24 22:47 [...] signed by DO KASSY Lambert> 08/21/24 1152 [facility] Work Phone: Progress note Author Talib Faustin [facility] Note Date/Time November 23, 2024 10:2 6am [facility] [place] [address] Cancer Center Note Signed Patient: Jeremie Bennett MR#: [id number] : 1940 Acct:[id number] Age/Sex: 84 / M Type: REG AMB [...] by IHC was equivocal. As per the [facility] tumor board recommendation is either [...] his week 1 of cisplatin. Labs at [facility] on 07/03/24 revealed hgb 13.3, cr is 1.0. He is having his labs here today.He had his pacemaker placed on 07/10/24 in [place]. 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 [...] positive squamous cell carcinoma. Tumor board at [facility] [place] [facility] and the recommended concurrent chemoradiation. Past [...] with concurrent chemoradiation. Since he lives in [place] he was referred by Dr. Mary Schneider from ENT at [facility] to our medical oncology and radiation oncology at [facility]. He is referred to medical oncology [...] his week 1 of cisplatin. Labs at [facility] on 07/03/24 revealed hgb 13.3, cr is 1.0. He is having his labs here today.He had his pacemaker placed on 07/10/24 in [place]. 07/20/2024 he came in complaining of increase [...] NO concerns voiced at time of intake. [facility] Medical History Medical History Squamous cell carcinoma [...] (end stage renal disease) [facility] Problem: Diagnosed with Cancer Lymphoma [...] signed by Talib Faustin MD> 11/23/24 1026 [facility] Work Phone: Progress note Author Becky Crouch [facility] Note Date/Time December 26, 2024 1: 25pm [facility] [place] [address] Cancer Center Note Signed Patient: Jeremie Bennett MR#: [id number] : 1940 Acct:[id number] Age/Sex: 84 / M Type: DEP AMB [...] was placed by surgery here at [facility] and patient is hopeful to have [...] Extended-Release) Allergy (Unknown, Verified 11/23/24 10:00) hives [facility] Medical History Medical History (Updated 11/23/24 @ [...] disease History of stroke [facility] Problem: Diagnosed with Stroke Hypertension Emphysema lung ESRD (end stage renal disease) [facility] Problem: Diagnosed with Cancer Lymphoma Social History [...] <Electronically signed by RAYSHAWN Crouch> 12/26/24 1343 [facility] Work Phone: Reason for referral (narrative) Referred by: Flori GARZA, [facility] Reason for visit Narrative* Auth/Cert Specialty Diagnoses / Procedures Referred By Bakari rosado Referred To Contact Diagnoses 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] Procedures RI GLOSSECTOMY HEMIGLOSSECTOMY RI LARYNGOSCOPY W/WO TRACHEOSCOPY DX EXCEPT RI BRNCHSC INCL FLUOR GDNCE DX W/CELL WASHG SPX RI ESOPHAGOSCOPY FLEXIBLE TRANSORAL DIAGNOSTIC RI TONSILLECTOMY PRIMARY/SECONDARY AGE 12/> GLOSSECTOMY, ROBOT-ASSISTED, ORAL APPROACH Direct Laryngoscopy Bronchoscopy [place]ophag[place] T[place] [address] [place] [address] Phone: tel: fax: [facility] Johnny NORMAN [address] [place] [address] fax: Referral ID Status Reason Start Date Expiration Date Visits Re quested Visits Authorized [id number] 1 1 [facility] Work Phone: Reason for visit Narrative* Imaging (Routine) - Authorized Specialty Diagnoses / Procedures Referred By Contac t Referred To Contact Radiology Diagnoses Enlarged submental lymph node Procedures US guided biopsy lymph node superficial IR biopsy [place] [address] [place] [address] Phone: tel: fax: Referral ID Status Reason Start Date Expiration Date Visits Requested Visits Authorized [id number] Authorized Perform Procedure 4 05/12/2025 1 1 [facility] Work Phone: Summary Purpose Family History [...] Documents on File Type Date Recorded 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 Expl anation Healthcare Power of Atty 05/11/2024 Living Will 05/11/2024 Documents on File Type Date Recorded 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 Expl anation Healthcare Power of Atty 05/11/2024 [...] Admit Date Squamous cell carcinoma of oropharynx [facility] 2024 9:25am Tongue cancer June 14, 2024 9 :25am Squamous cell carcinoma of oropharynx [facility] 2024 10:28am Chief Complaint Admit Date NEW-Mal [...] Admit Date Squamous cell carcinoma of oropharynx [facility] 2024 9:25am Tongue cancer June 14, 2024 9 :25am Squamous cell carcinoma of oropharynx [facility] 2024 10:28am Encounter for palliative care June 182024 8:00am Squamous cell carcinoma of oropharynx [facility] 2024 8:00am Chief Complaint Admit Date [...] Admit Date Squamous cell carcinoma of oropharynx [facility] 2024 9:25am Tongue cancer June 14, 2024 9 :25am Squamous cell carcinoma of oropharynx [facility] 2024 10:28am Encounter for palliative care June 182024 8:00am Squamous cell carcinoma of oropharynx [facility] 2024 8:00am Cancer associated pain July 12 7:36am Nausea July 12, 2024 7:36am Squamous cell carcinoma of oropharynx [facility] 2024 7:36am Squamous cell carcinoma of oropharynx [facility] 2024 8:29am Tongue cancer July 12, [...] Admit Date Squamous cell carcinoma of oropharynx [facility] 2024 8:13am Cancer associated pain July 26, 2024 8:22am Nausea July 26, 2024 8:2 2am Squamous cell carcinoma of oropharynx [facility] 2024 8:22am Chief Complaint Admit [...] Admit Date Squamous cell carcinoma of oropharynx [facility] 2024 8:13am Cancer associated pain July 26, 2024 8:22am Nausea July 26, 2024 8:2 2am Squamous cell carcinoma of oropharynx [facility] 2024 8:22am Cancer associated pain August 02, 2024 7:29am Constipation August 02, 2024 7:2 9am Squamous cell carcinoma of oropharynx [facility] 2024 7:29am Thrush, oral August [...] Admit Date Squamous cell carcinoma of oropharynx [facility] 2024 8:13am Cancer associated pain July 26, 2024 8:22am Nausea July 26, 2024 8:2 2am Squamous cell carcinoma of oropharynx [facility] 2024 8:22am Cancer associated pain August 02, 2024 7:29am Constipation August 02, 2024 7:2 9am Squamous cell carcinoma of oropharynx [facility] 2024 7:29am Thrush, oral August 02, 2024 7:2 9am Cancer associated pain August 09, 2024 7:51am Constipation August 09, 2024 7:5 1am Nausea August 09, 2024 7:5 1am Squamous cell carcinoma of oropharynx [facility] 2024 7:51am Squamous cell carcinoma of oropharynx [facility] 2024 9:23am Chief Complaint Admit Date NEW-Mal Migule base of tongue June 14, 2024 9:25am [...] Admit Date Squamous cell carcinoma of oropharynx [facility] 2024 8:13am Cancer associated pain July 26, 2024 8:22am Nausea July 26, 2024 8:2 2am Squamous cell carcinoma of oropharynx [facility] 2024 8:22am Cancer associated pain August 02, 2024 7:29am Constipation August 02, 2024 7:2 9am Squamous cell carcinoma of oropharynx [facility] 2024 7:29am Thrush, oral August 02, 2024 7:2 9am Cancer associated pain August 09, 2024 7:51am Constipation August 09, 2024 7:5 1am Nausea August 09, 2024 7:5 1am Squamous cell carcinoma of oropharynx [facility] 2024 7:51am Squamous cell carcinoma of oropharynx [facility] 2024 9:23am Cancer associated pain August 16, 2024 7 :59am Constipation August 16, 2024 7:59 am Nausea August 16, 2024 7:59 am Squamous cell carcinoma of oropharynx [facility] 2024 7:59am Chief Complaint Admit [...] Admit Date Squamous cell carcinoma of oropharynx [facility] 2024 8:13am Cancer associated pain July 26, 2024 8:22am Nausea July 26, 2024 8:2 2am Squamous cell carcinoma of oropharynx [facility] 2024 8:22am Cancer associated pain August 02, 2024 7:29am Constipation August 02, 2024 7:2 9am Squamous cell carcinoma of oropharynx [facility] 2024 7:29am Thrush, oral August 02, 2024 7:2 9am Cancer associated pain August 09, 2024 7:51am Constipation August 09, 2024 7:5 1am Nausea August 09, 2024 7:5 1am Squamous cell carcinoma of oropharynx [facility] 2024 7:51am Squamous cell carcinoma of oropharynx [facility] 2024 9:23am Cancer associated pain August [...] Admit Date Squamous cell carcinoma of oropharynx [facility] 2024 8:13am Cancer associated pain July 26, 2024 8:22am Nausea July 26, 2024 8:2 2am Squamous cell carcinoma of oropharynx [facility] 2024 8:22am Cancer associated pain August 02, 2024 7:29am Constipation August 02, 2024 7:2 9am Squamous cell carcinoma of oropharynx [facility] 2024 7:29am Thrush, oral August 02, 2024 7:2 9am Cancer associated pain August 09, 2024 7:51am Constipation August 09, 2024 7:5 1am Nausea August 09, 2024 7:5 1am Squamous cell carcinoma of oropharynx [facility] 2024 7:51am Squamous cell carcinoma of oropharynx [facility] 2024 9:23am Cancer associated pain [...] Admit Date Squamous cell carcinoma of oropharynx [facility] 2024 8:13am Cancer associated pain July 26, 2024 8:22am Nausea July 26, 2024 8:2 2am Squamous cell carcinoma of oropharynx [facility] 2024 8:22am Cancer associated pain August 02, 2024 7:29am Constipation August 02, 2024 7:2 9am Squamous cell carcinoma of oropharynx [facility] 2024 7:29am Thrush, oral August 02, 2024 7:2 9am Cancer associated pain August 09, 2024 7:51am Constipation August 09, 2024 7:5 1am Nausea August 09, 2024 7:5 1am Squamous cell carcinoma of oropharynx [facility] 2024 7:51am Squamous cell carcinoma of oropharynx [facility] 2024 9:23am Cancer associated pain [...] Admit Date Squamous cell carcinoma of oropharynx [facility] 2024 8:13am Cancer associated pain July 26, 2024 8:22am Nausea July 26, 2024 8:2 2am Squamous cell carcinoma of oropharynx [facility] 2024 8:22am Cancer associated pain August 02, 2024 7:29am Constipation August 02, 2024 7:2 9am Squamous cell carcinoma of oropharynx [facility] 2024 7:29am Thrush, oral August 02, 2024 7:2 9am Cancer associated pain August 09, 2024 7:51am Constipation August 09, 2024 7:5 1am Nausea August 09, 2024 7:5 1am Squamous cell carcinoma of oropharynx [facility] 2024 7:51am Squamous cell carcinoma of oropharynx [facility] 2024 9:23am Cancer associated pain [...] migrainosus, not intractable (CMS/HCC) Missy Westfall PA [address] [place] [address] Referral ID Status Reason Start Date Expiration Date V isits Requested Visits Authorized [id number] Pending Review 02/16/2024 08/14/2024 1 1 Specialty Diagnoses / Procedures Referred By Contac t Referred To Contact MR IMAGING Diagnoses IPMN (intraductal papillary mucinous neoplasm) Procedures MRI 3D POST PROCESSING 3D RENDERING W/INTERP&POSTPROC [place] [address] [facility] [address] [place] [address] Mr Imaging [place] [address] Referral ID Status Reason Start Date Expiration Date Visits Requested Visits Authorized [id number] New Request Auto-Generat ed Referral 02/01/2024 03/02/2025 1 1 Specialty Diagnoses / Procedures Referred By Bakari rosado Referred To Contact MR IMAGING Diagnoses IPMN (intraductal papillary mucinous neoplasm) Procedures MRI PANC/TRISH WO/W IVCON MRI ABDOMEN W/O & W/[place] [address] [facility] [address] [place] [address] Mr Imaging [facility] Referral ID Status Reason Start Date Expiration Date Visits Requested Visits Authorized [id number] New Request Auto-Generat ed Referral 02/01/2024 03/02/2025 [...] section and content) DATE CREATED AUTHOR 02/08/2020 [facility] DATE CREATED AUTHOR AUTHOR'S ORGANIZ ATION 09/30/2022 [facility] DATE CREATED AUTHOR AUTHOR'S ORGANIZ ATION 02/04/2023 [facility] DATE CREATED AUTHOR AUTHOR'S ORGANIZ ATION 04/01/2024 [facility] DATE CREATED AUTHOR AUTHOR'S ORGANIZ ATION 04/19/2024 [place] [facility] DATE CREATED AUTHOR AUTHOR'S ORGANIZ ATION 07/05/2024 [facility] DATE CREATED AUTHOR AUTHOR'S ORGANIZ ATION 07/21/2024 [facility] DATE CREATED AUTHOR AUTHOR'S ORGANIZ ATION 07/22/2024 [facility] DATE CREATED AUTHOR AUTHOR'S ORGANIZ ATION 09/03/2024 [place] [facility] DATE CREATED AUTHOR AUTHOR'S ORGANIZ ATION 10/15/2024 [facility] DATE CREATED AUTHOR AUTHOR'S ORGANIZ ATION 10/31/2024 [facility] DATE CREATED AUTHOR AUTHOR'S ORGANIZ ATION 12/01/2024 [facility] DATE CREATED AUTHOR AUTHOR'S ORGANIZ ATION 12/27/2024 [facility] DATE CREATED AUTHOR AUTHOR'S ORGANIZ ATION 01/17/2025 [facility] DATE CREATED AUTHOR AUTHOR'S ORGANIZ ATION 01/20/2025 [facility] EPIC DATE CREATED AUTHOR AUTHOR'S ORGANIZ ATION 02/17/2025 [facility] REASON FOR VISIT (unrecogniz ed section and content) Reason Comments Consult PE Reason Comments Received Outside Medical Records Reason Comments Back Pain Dizziness Neck Pain Reason Comments Parotid mass Parotid mass Reason Comments MRI Appointment Milled Rubber Tender - Other Reason Comments Parotid Mass Follow [...] cancerHaving pacemaker generator change on 07-10-24 / [place] cardiology Dr Patel. Specialty Diagnoses / Procedures Referred By Bakari rosado Referred To Contact General Surgery Diagnoses Malignant neoplasm of oropharynx, unspecified (CMS/HCC) Procedures RI UNLISTED EVALUATION AND MANAGEMENT SERVICE Dennis rGay MD [address] [place] [address] Phone: tel: fax: Stacey Hinojosa DO [address] [address] Phone: tel: fax: Referral ID Status Reason Start Date Expiration Date Visits Re quested Visits Authorized [id number] Closed 06/14/2024 12/11/2024 1 1 Reason Comments Follow-up Reason Comments urgent need for gastrostomy tube Reason Comments 1st pow gastrostomy tube placement Reason Comments Gastrostomy tube removal Specialty Diagnoses / Procedures Referred By Bakari rosado Referred To Contact General Surgery Diagnoses Malignant neoplasm of oropharynx, unspecified (HCC) Procedures RI UNLISTED EVALUATION AND MANAGEMENT SERVICE Gelacio Paredes MD Phone: tel: fax: Agapito Adkinsic Jane, [address] [place] [address] [place] [address] Phone: tel: fax: Referral ID Status Reason Start Date Expiration Date Visits Re quested Visits Authorized [id number] Closed 12/26/2024 06/24/2025 1 1 Reason Comments [...] Team Status: Active Member Role Status Dates eDmetrius Cooper MD [...] Care Provider Active Start: August 16, 2024 Deboar Wild APRN Attending Prov ider, Other Provider [...] Status: Inactive Member Role Status Dates Missy Westafll PA-C Attending Provider Active Mg London MD [...] Active Anjali Ruby NP-C Attending Provider Active Oil Processing Technician Relationship Specialty Start Date End Date Anjali Ruby CNP [address] [place] [address] Referring Family Medicine 03/03/23 Oil Processing Technician Relationship Specialty Start Date End Date Anjali Ruby CNP [address] [place] [address] Referring Family Medicine 03/03/23 Team Status: Inactive [...] September 02, 2023 End: September 02, 2023 Oil Processing Technician Relationship Specialty Start Date End Date Anjali Ruby CNP [address] [place], [place] [address] [address] Referring Family Medicine 03/03/23 Oil Processing Technician Relationship Specialty Start Date End Date Demetrius Cooper MD [address] [place] [phone] PCP - General Family Medicine 01/26/24 Clarissa Corado MD [address] [place] [address] Referring Physician Neurology 08/03/23 Oil Processing Technician Relationship Specialty Start Date End Date Demetrius Cooper MD [address] [place] [address] PCP - General Family Medicine 01/26/24 Clarissa Corado MD [address] [place] [address] Referring Physician Neurology 08/03/23 Oil Processing Technician Relationship Specialty Start Date End Date Demetrius Cooper MD [address] [place] [address] PCP - General Family Medicine 01/26/24 Clarissa Corado MD [address] [place] [address] Referring Physician Neurology 08/03/23 Oil Processing Technician Relationship Specialty Start Date End Date Anjali Ruby CNP [address] [place], [place] [address] [address] Referring Family Medicine 03/03/23 Team Status: Inactive Member Role Status Dates Demetrius Cooper MD Primary Care Provider Active Start: February 29, 2024 End: February 29, 2024 Luc Ham Jr, MD Attending Provider Active Start: February 29, 2024 End: February 29, 2024 Oil Processing Technician Relationship Specialty Start Date End Date Demetrius Cooper MD [address] [place] [phone] PCP - General Family Medicine 01/26/24 Clarissa Corado MD [address] [place] [id number] Referring Physician Neurology 08/03/23 Oil Processing Technician Relationship Specialty Start Date End Date Demetrius Cooper MD [address] [place] [phone] PCP - General Family Medicine 01/26/24 Clarissa Corado MD [address] [place] [address] Referring Physician Neurology 08/03/23 Oil Processing Technician Relationship Specialty Start Date End Date Demetrius Cooper MD [address] [place] [phone] PCP - General Family Medicine 01/26/24 Clarissa Corado MD [address] [place] [address] Referring Physician Neurology 08/03/23 Oil Processing Technician Relationship Specialty Start Date End Date Demetrius Cooper MD [address] [place] [address] PCP - General Family Medicine 03/27/24 Anjali Ruby CNP [address] [place] [address] Referring Family Medicine 03/03/23 Luc Ham MD [address] [place] [address] [place] [phone] Ent - Otolaryngology 03/10/24 Oil Processing Technician Relationship Specialty Start Date End Date Demetrius Cooper MD [address] [facility] [place] [address] PCP - General Family Medicine 01/26/24 Clarissa Corado MD [address] [facility] [place] [id number] Referring Physician Neurology 08/03/23 Oil Processing Technician Relationship Specialty Start Date End Date Demetrius Cooper MD [address] [facility] [place] [address] PCP - General Family Medicine 04/11/24 Oil Processing Technician Relationship Specialty Start Date End Date Demetrius Cooper MD [address] [facility] [place] [address] PCP - General Family Medicine 04/11/24 Oil Processing Technician Relationship Specialty Start Date End Date Demetrius Cooper MD [address] [facility] [place] [address] PCP - General Family Medicine 04/11/24 Oil Processing Technician Relationship Specialty Start Date End Date Demetrius Cooper MD [address] [facility] [place] [address] PCP - General Family Medicine 04/11/24 Team Status: Inactive Member Role Status Dates Demetrius Cooper MD Primary Care Provider Active Start: June 14, 2024 End: June 14, 2024 Talib Faustin MD Attending Provider Active Start: June 14, 2024 End: June 14, 2024 aMry Schneider MD Referring Provider Active S tart: [...] June 14, 2024 End: June 14, 2024 Oil Processing Technician Relationship Specialty Start Date End Date eDmetrius Cooper MD [address] [place] [address] PCP - General Family Medicine 01/26/24 Clarissa Corado MD [address] [place] [address] Referring Physician Neurology 08/03/23 Team Status: Active Member Role Status Dates Demetrius Cooper MD Primary Care Provider Active Start: June 20, 2024 Mary Schneider MD Referring Provider Active S tart: June 20, 2024 Dennis Gray MD Attending Provider Active Start: June 20, 2024 Oil Processing Technician Relationship Specialty Start Date End Date Demetrius Cooper MD [address] [place] [address] PCP - General Family Medicine 01/26/24 Clarissa Corado MD [address] [place] [address] Referring Physician Neurology 08/03/23 Team Status: Active [...] Provider A ctive Start: August 20, 2024 Oil Processing Technician Relationship Specialty Start Date End Date Demetrius Cooper MD [address] [facility] [place] [address] PCP - General Family Medicine 04/11/24 Oil Processing Technician Relationship Specialty Start Date End Date Demetrius Cooper MD [address] [place] [address] PCP - General Family Medicine 01/26/24 Clarissa Corado MD Referring Physician Neurology 08/03/23 Oil Processing Technician Relationship Specialty Start Date End Date Demetrius Cooper MD [address] [place] [address] PCP - General Family Medicine 01/26/24 Clarissa [...] September 26, 2024 End: September 26, 2024 Oil Processing Technician Relationship Specialty Start Date End Date Demetrius Cooper MD [address] [place] [address] PCP - General Family Medicine 01/26/24 Clarissa Corado MD Referring Physician Neurology 08/03/23 Oil Processing Technician Relationship Specialty Start Date End Date Demetrius Cooper MD [address] [place] [address] PCP - General Family Medicine 01/26/24 Clarissa Corado MD Referring Physician Neurology 08/03/23 Oil Processing Technician Relationship Specialty Start Date End Date Demetrius Cooper MD [address] [place] [address] PCP - General Family Medicine 01/26/24 Clarissa [...] November 23, 2024 End: November 23, 2024 Oil Processing Technician Relationship Specialty Start Date End Date Demetrius Cooper MD [address] [facility] [place] [address] PCP - General Family Medicine 04/11/24 Team [...] Attending Provider Active Start: December 26, 2024 Oil Processing Technician Relationship Specialty Start Date End Date Demetrius Cooper MD [address] [place] [address] PCP - General Family Medicine 01/26/24 Clarissa Corado MD Referring Physician Neurology 08/03/23 Oil Processing Technician Relationship Specialty Start Date End Date Demetrius Cooper MD [address] [place] [address] PCP - General Family Medicine 01/26/24 Clarissa [...] or prosecute any alcohol or drug abuse patient.[facility] SystemIn the event this information is protected by the Federal Confidentiality of Alcohol and Drug Abuse Patient Records regulations: The Federal rules restrict any use of the information to criminally investigate or prosecute any alcohol or drug abuse patient.[facility] SystemIn the event this information is protected by the Federal Confidentiality of Alcohol and Drug Abuse Patient Records regulations: The Federal rules restrict any use of the information to criminally investigate or prosecute any alcohol or drug abuse patient.[facility] SystemIn the event this information is protected by the Federal Confidentiality of Alcohol and Drug Abuse Patient Records regulations: The Federal rules restrict any use of the information to criminally investigate or prosecute any alcohol or drug abuse patient.[facility] SystemIn the event this information is protected by the Federal Confidentiality of Alcohol and Drug Abuse Patient Records regulations: The Federal rules restrict any use of the information to criminally investigate or prosecute any alcohol or drug abuse patient.[facility] PRN Active and Recently Administ ered Medications [...] BE BASED ON THE PRIMARY CLINICAL RECORDS. [employer] provides no warranty or guarantee of the accuracy or completeness of information in this document.
--- NOTE | 2025-02-22 15:22 | PM.CN ---
Consult Note: HPI Data of Consult Patient: known to practice within the last 3 years Requesting Physician: Alexandra Trevizo NP Primary Care Provider: Owen Sinclair MD Consult Narrative Reason for consult: low back pain Narrative: Jair Bennett a pleasant 84 year old male presents for evaluation and management of low back pain. pain well controlled from last visit except the last 1 week, pt notes increased left low back pain without known cause or injury. pain 7/10 burning, increasing with standing, walking, twisting, lifting, pushing, pulling, activity. denies falls or injury. denies numbness, tingling, weakness, pain in LE. cc:: CC: Alexandra Trevizo NP Review of Systems ROS Musculoskeletal Reports: back pain and joint pain PFSH [facility] Medical History (Updated 02/22/25 @ 15:25 by Alexandra Trevizo NP) Anemia ?D64.9 - Anemia, unspecified (ICD-10) COVID ?U07.1 - COVID-19 (ICD-10) Vitamin D deficiency ?E55.9 - Vitamin D deficiency, unspecified (ICD-10) Skin cancer ?C44.90 - Unspecified malignant neoplasm of skin, unspecified (ICD-10) NPH (normal pressure hydrocephalus) ?G91.2 - (Idiopathic) normal pressure hydrocephalus (ICD-10) Migraine ?G43.909 - Migraine, unspecified, not intractable, without status migrainosus (ICD-10) Glaucoma ?H40.9 - Unspecified glaucoma (ICD-10) Diverticulosis ?K57.90 - Diverticulosis of intestine, part unspecified, without perforation or abscess without bleeding (ICD-10) Ventricular tachycardia ?I47.20 - Ventricular tachycardia, unspecified (ICD-10) Arthritis ?M19.90 - Unspecified osteoarthritis, unspecified site (ICD-10) Cervical lymphadenopathy ?R59.0 - Localized enlarged lymph nodes (ICD-10) Neck pain ?M54.2 - Cervicalgia (ICD-10) Low back pain ?M54.50 - Low back pain, unspecified (ICD-10) Thrombosis ?I82.90 - Acute embolism and thrombosis of unspecified vein (ICD-10) Weakness ?R53.1 - Weakness (ICD-10) Hiatal hernia ?K44.9 - Diaphragmatic hernia without obstruction or gangrene (ICD-10) Acid reflux ?K21.9 - Gastro-esophageal reflux disease without esophagitis (ICD-10) Diabetes ?E11.9 - Type 2 diabetes mellitus without complications (ICD-10) Prostate cancer ?C61 - Malignant neoplasm of prostate (ICD-10) Sleep apnea ?G47.30 - Sleep apnea, unspecified (ICD-10) Irregular heart beat ?I49.9 - Cardiac arrhythmia, unspecified (ICD-10) High cholesterol ?E78.00 - Pure hypercholesterolemia, unspecified (ICD-10) Hypertension ?I10 - Essential (primary) hypertension (ICD-10) Surgical History History of lymph node biopsy ?Z98.890 - Other specified postprocedural states (ICD-10) History of implantation of artificial sphincter ?Z96.89 - Presence of other specified functional implants (ICD-10) Hx laparoscopic cholecystectomy ?Z90.49 - Acquired absence of other specified parts of digestive tract (ICD-10) History of carpal tunnel release of both wrists ?Z98.890 - Other specified postprocedural states (ICD-10) Pacemaker ?Z95.0 - Presence of cardiac pacemaker (ICD-10) H/O angioplasty ?Z98.62 - Peripheral vascular angioplasty status (ICD-10) H/O vasectomy ?Z98.52 - Vasectomy status (ICD-10) H/O neck surgery ?Z98.890 - Other specified postprocedural states (ICD-10) History of repair of inguinal hernia ?Z98.890 - Other specified postprocedural states (ICD-10) ?Z87.19 - Personal history of other diseases of the digestive system (ICD-10) History of prostatectomy ?Z90.79 - Acquired absence of other genital organ(s) (ICD-10) History of phacoemulsification of cataract of both eyes with intraocular lens implantation ?Z98.41 - Cataract extraction status, right eye (ICD-10) ?Z98.42 - Cataract extraction status, left eye (ICD-10) ?Z96.1 - Presence of intraocular lens (ICD-10) History of cardiac radiofrequency ablation ?Z98.890 - Other specified postprocedural states (ICD-10) History of tonsillectomy ?Z90.89 - Acquired absence of other organs (ICD-10) Social History Smoking status: Former smoker Little interest or pleasure in doing things: not at all Feeling down, depressed, or hopeless: not at all Meds Home Medications and Allergies Home Medications ?Medication ?Instructions ?Recorded ?Confirmed ?Type amlodipine 5 mg tablet 5 mg PO QDAY 10/14/22 02/29/24 History clopidogrel 75 mg tablet (Plavix) 75 mg PO QDAY 10/14/22 02/29/24 History furosemide 20 mg tablet (Lasix) 40 mg PO QDAY 10/14/22 02/21/24 History irbesartan 300 mg tablet (Avapro) 300 mg PO QDAY 10/14/22 02/29/24 History isosorbide mononitrate 30 mg PO QDAY 10/14/22 02/29/24 History latanoprost 0.005 % eye drops 1 drp ophthalmic (eye) QDAY 10/14/22 02/29/24 History loperamide 2 mg capsule 2 mg PO Q2H PRN loose stool 10/14/22 02/29/24 History (Anti-Diarrheal (loperamide)) multivitamin (Daily Multi-Vitamin 1 tab PO QDAY 10/14/22 02/29/24 History tablet) omeprazole 40 mg capsule,delayed 40 mg PO QDAY 10/14/22 02/29/24 History release rosuvastatin 10 mg tablet (Crestor) 10 mg PO QDAY 10/14/22 02/29/24 History sotalol 40 mg PO BID 10/14/22 02/29/24 History tizanidine 4 mg tablet 4 mg PO BEDTIME 10/14/22 02/29/24 History TRANSDERMAL THERAPEUTICS QID PRN pain 09/15/23 History albuterol sulfate 90 mcg/actuation 2 inh inhalation Q8H PRN shortness 09/15/23 09/15/23 History aerosol inhaler of breath or wheezing famotidine 20 mg tablet 20 mg PO DAILY 09/15/23 02/29/24 History metformin 500 mg tablet,extended 500 mg PO DAILY 09/15/23 02/29/24 History release 24 hr psyllium husk 0.4 gram capsule 0.4 g PO DAILY 09/15/23 02/21/24 History (Metamucil) zonisamide 25 mg capsule 25 mg PO BID 09/15/23 02/29/24 History dorzolamide 2 % eye drops 1 drp ophthalmic (eye) TID 02/21/24 02/29/24 History Allergies Allergy/AdvReac Type Severity Reaction Status Date / Time adhesive Allergy Mild Unknown Verified 09/29/24 22:56 niacin (From Niaspan Allergy Mild itch Verified 09/29/24 22:56 Extended-Release) Exam Constitutional Documenting provider has reviewed patient's vital signs: yes Common normals: no apparent distress, oriented x3, healthy appearing, alert and well nourished General appearance: cooperative HENMT Common normals: normocephalic, hearing grossly normal bilaterally and moist oral mucous membranes Head and scalp: normocephalic Eye Common normals: PERRL Pupil: PERRL Neck & C-Spine Common normals: full ROM General: normal visual inspection Chest Common normals: inspection of chest normal Respiratory Common normals: normal respiratory effort, no retractions and no use of accessory muscles Back & Pelvis Lumbar spine/lower back: ROM limited, pain with ROM, lumbar spinal tenderness and straight leg raise negative bilaterally Sacroiliac joints: SI joint(s) abnormal Other: left sij positive shawnee(patricks), gaenslens, thigh thrust, compression test Neuro Common normals: oriented x3 Sensorium/orientation: alert Psych Common normals: mental status grossly normal, thought process normal, cooperative, affect normal, speech normal and activity/motor behavior normal Speech: normal speech Thought process: normal thought process Results Additional Findings Additional findings: If on a controlled substance or opioids, I have checked an [place] report on this patient and there are no aberrancies noted in the prescribing history.??If on a controlled substance or opioid a drug screen was completed and reviewed within the last year, and if there has not been a drug screen completed we ordered one today to monitor higher risk, state monitored pain medication use. As part of providing excellent, safe, comprehensive care, the following was completed at our patient's visit: 1. A medication reconciliation and review to ensure accurate knowledge of current/active medications, including asking our patients to inform us about any iqqi-trt-devwhdd medications or herbal remedies/nutritional supplements/alternative remedies. 2. A review to specifically ensure our patients have had annual screening for screening for depression, screening for tobacco use, and screening for unhealthy alcohol use. For concerning screenings had a discussion with the patient, provided patient education, and recommended follow-up with primary care provider when appropriate. If patient noted with a risk of falling, they received education on strength, gait, and balance training to prevent future risk of falling. Portions of this note may have been carried over from the previous visit and updated as appropriate. Please note this office utilizes paper charting in addition to the electronic medical record. A list of current medications, vitals, and PMH is available there as the clinical staff outside of myself do not have access to [employer] charting during the clinic day operations. As part of providing quality comprehensive care the current medications, vitals, and PMH were reviewed in the paper chart. Assessment and Plan Assessment and Plan (1) Chronic low back pain: (2) Sacroiliitis: (3) Myalgia, other site: Plan update lumbar xray with flexion restart tizanidine 4mg bid prn pain/spasms continue HEP as tolerated f/u 2 weeks after injection
== END 2025-02-22 14:23 | disposition home or self-care (01) ==
LOC: PM 14:22
PROVIDERS: PCP Family Medicine; Visit Provider Nurse Practitioner
DX: M54.50 Low back pain, unspecified (principal); G89.29 Other chronic pain; M46.1 Sacroiliitis, not elsewhere classified; M79.18 Myalgia, other site
CPT/HCPCS: G0463

== ENCOUNTER 2025-02-23 08:27 | Outpatient (OUT) | payer MEDICARE, SELFPAY ==
--- OUTSIDE RECORDS SUMMARY | 2025-02-22 06:09 | XMS_ITS | Continuity of Care Document ---
Author Organization [facility] Address [address] [place] [address] Phone Care Team Providers Care Glove Printer Name Role Phone Demetrius Mirza MD Primary Care Provider Becky Crouch APRN Attending Provider Mary Schneider MD Referring Provider [phone] Talib Faustin MD Attending Provider Care Teams Patient Care Team Team Status: Active Member Role Status Dates Demetrius Mirza MD Primary Care Provider Active Visit Care Team Team Status: Inactive Member Role Status Dates Demetrius Mirza MD Primary Care Provider Active Start: December 26, 2024 End: December 26, 2024 Becky Crouch APRN Attending Provider Acti ve Start: December 26, 2024 End: December 26, 2024 Patient Care Team Team Status: Inactive Member Role Status Dates Demetrius Mirza MD Primary Care Provider Active Start: February 22, 2025 End: February 22, 2025 Becky Crouch APRN Attending Provider Acti ve Start: February 22, 2025 End: February 22, 2025 Visit Care Team Team Status: Active Member Role Status Dates Demetrius Mirza MD Primary Care Provider Active Start: February 22, 2025 Mary Schneider MD Referring Provider Active S tart: February 22, 2025 Talib Faustin MD Attending Provider Active Start: February 22, 2025 Chief Complaint and Reason [...] Legal Sex Male (finding) Sex Assigned At Male 1940 Family History Relationship Condition Age at Onset Recorded Date/T olivia father Unknown Glaucoma Unknown mother Heart disease Unknown Unknown History of stroke Unknown Hypertension Unknown Pulmonary emphysema Unknown End-stage renal disease Unknown sister Unknown Malignant neoplasm Unknown Lymphoma Unknown Problems Active Problems Medical Problem Onset Date Status Comments 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 Obstructive sleep apnea Unknown Active Other acute postprocedural pain Unknown Active Diabetic neuropathy Unknown Active Thrush, oral Unknown Active DM (diabetes mellitus) Unknown Active Central sleep apnea Unknown Active CAD (coronary artery disease) Unknown Active Coronary artery disease Unknown Active Hypercholesteremia Unknown Active Cancer associated pain Unknown Active Ventricular tachycardia Unknown Active Essential hypertension Unknown Active Polyneuropathy associated wi th underlying disease Unknown Active Encounter for palliative care Unknown Active Nausea Unknown Active Nausea Unknown Active Constipation Unknown Active Secondary to op ioids, and decreased oral intake Vitamin D deficiency, unspecified Unknown Active Excessive daytime sleepiness Unknown Active Inactive/Resolved Problems Medical Problem Onset Date Status Comments Immunosuppression Unknown Resolved Fever Unknown Resolved Lung nodule Unknown Resolved Pneumonia Unknown Resolved Constipation Unknown Resolved Medications Medication Status Dose Units Route Directions Qty Days St art Date Stop Date End Date Instructions Adherence Magic Mouthwash W/Lidocaine 240 Ml Bottle 240 mL bottle Discont inued 10 ML PO Four times daily as needed for mucositis 240 Februa 2024 1:00am August 23, 2024 10:15 am Take 10ml by mouth, four times a day, as needed. SWISH AND SWALLOW. Magic Mouthwash W/Lidocaine 240 Ml Bottle 240 mL bottle Discont inued 10 ML PO Four times daily as needed for mucositis 240 July 19, 2024 1:00am August 20, 2024 6:07p m Take 10ml by mouth, four times a day as needed. SWISH AND SWALLOW. Oxycodone 5 mg/5 mL solution Discont inued 5 MG PO EVERY 4-6 HOURS as needed for pain 250 15 July 27, 2024 August 04, 2024 9:18a m Fentanyl 12 mcg/hr patch 72 hour Discont inued 1 PATCH TRANSD ERML Every 72 hours 5 August 02, 2024 August 16, 2024 9:47a m Nystatin 100,000 unit/mL suspension Discont inued 69483 0 UNIT PO Four times daily 224 August 02, 2024 12:00a m August 20, 2024 6:07p m administer 1/2 of dose in each side of the mouth Lactulose 10 gram/15 mL solution Discont inued 10 GM PO Daily as needed for constipatio n 450 30 August 02, 2024 12:00a m August 20, 2024 6:06p m use everyday until you have a bowel movement daily. Sennosides (Black-Drau ght Lax-Senna) 8.6 mg tablet Discont inued 8.6 MG PO Twice daily as needed for constipatio n 60 30 August 02, 2024 12:00a m November 23, 2024 10:02 am Use if no bowel movement daily Clotrimazol e 10 mg joyce Discont inued 10 MG MUCOUS MEM Five times daily 70 14 August 03, 2024 12:00a m August 17, 2024 11:32 am use for 10 days, if symptoms persist, then complete the 14 days dispensed Oxycodone 5 mg/5 mL solution Discont inued 5 MG PO EVERY 4-6 HOURS as needed for pain 250 15 August 04, 2024 August 16, 2024 9:47a m Nystatin 500,000 unit tablet Discont inued 97310 0 UNIT PO Four times daily 56 August 17, 2024 12:00a m September 14, 2024 9:27a m Silver Sulfadiazin e (Silvadene) 1 % cream Discont inued 1 APPLIC TOPICA L Twice daily 50 August 18, 2024 12:00a m October 03, 2024 10:25 am Apply to open areas on radiation site, twice a day, until healed. Sucralfate 100 mg/mL suspension Discont inued 10 ML PO Three times daily 450 September 14, 2024 12:00a m October 03, 2024 10:26 am Nystatin 500,000 unit tablet Discont inued 67661 0 UNIT PO Four times daily 40 September 14, 2024 9:24am November 23, 2024 10:01 am Oxycodone 5 mg/5 mL solution Discont inued 10 MG PO Every 4 hours as needed for pain 750 September 21, 2024 November 23, 2024 10:01 am Tizanidine 4 mg tablet Active 0 PO Every evening 30 November 29, 2024 11:33a m 1/2-1 tablet orally every evening; Unknown Fluticasone Propionate 50 mcg/actuati on spray,suspe nsion Active 2 SPRAY INTRAN CRISTOPHER Every morning 2024 1:00am FreeTextSig: Nasal; Note: Source Status: Taking; Qty: 16 Unspecified; Provider: Boy Jaquez ( ) Unknown Psyllium Husk (Fiber (Psyllium Husk)) 0.4 gram capsule Discont inued 0.4 GM PO Daily 2024 1:00am August 20, 2024 6:08p m Oxycodone 5 mg/5 mL solution Discont inued 5 MG PO EVERY 4-6 HOURS as needed for pain 250 July 19, 2024 July 27, 2024 11:31 am Hydrocodone -Acetaminop hen 5-325 mg tablet Discont inued 1 TAB PO Every 12 hours as needed for pain 4 2 July 17, 2024 August 09, 2024 9:43a m Oxycodone 5 mg/5 mL solution Discont inued 10 MG PO Every 4 hours as needed for pain 750 August 16, 2024 September 21, 2024 3:02p m Fentanyl 12 mcg/hr patch 72 hour Discont inued 1 PATCH TRANSD ERML Every 72 hours 5 August 16, 2024 September 11, 2024 10:11 am Cefpodoxime 200 mg tablet Discont inued 200 MG PO Twice daily 6 August 21, 2024 12:00a m October 03, 2024 10:22 am must administer with a meal/food Polyethylen e Glycol 3350 (Miralax) 17 gram/dose powder Active 17 GM PO Daily 68 September 20, 2024 12:00a m Unknown Lidocaine-P rilocaine 2.5-2.5 % cream Discont inued 2 GM TOPICA L Once as needed for pain 2024 2:08pm October 03, 2024 10:23 am Apply 1 hour prior to accessing port. Olanzapine 2.5 mg tablet Discont inued 2.5 MG PO Twice daily August 09, 2024 12:00a m November 23, 2024 10:02 am Albuterol Sulfate 90 mcg/actuati on aerosol powdr breath activated Discont inued 1 INH INHALA TION EVERY 4-6 HOURS as needed for shortness of breath or wheezing 2024 1:00am October 03, 2024 10:21 am Aspirin-Demetri taminophen- Caffeine (Excedrin Migraine) 250-250-65 mg tablet Discont inued 1 TAB PO EVERY 4-6 HOURS as needed for pain 2024 1:00am August 20, 2024 6:05p m Metformin 500 mg tablet Active 500 MG PO Every morning 2024 1:00am Unknown Omeprazole 40 mg capsule,del ayed release(DR/ EC) Active 40 MG PO Every morning 2024 1:00am Unknown Multivitami n (Multiple Vitamins) tablet Active 1 TAB PO Daily 2024 1:00am Unknown Aspirin 81 mg tablet,chew able Active 81 MG PO Daily 2024 1:00am Unknown Diphenhydra mine-Acetam inophen (Tylenol Pm Extra Strength) 25-500 mg tablet Discont inued 2 TAB PO Daily at bedtime as needed for sleep 2024 1:00am August 20, 2024 6:05p m Prochlorper azine Maleate (Compazine) 10 mg tablet Discont inued 10 MG PO Every 8 hours as needed for nausea and vomiting 2024 1:00am August 09, 2024 9:43a m Ondansetron 8 mg tablet,disi ntegrating Active 8 MG PO Every 8 hours as needed for nausea and vomiting 2024 1:00am Unknown Doxycycline Monohydrate 100 mg capsule Discont inued 100 MG PO Twice daily Februa ry 2024 1:00am August 20, 2024 6:05p m Ferrous Sulfate (Ferosul) 325 mg (65 mg iron) tablet Active 325 MG PO Twice daily Octobe r 2024 12:00a m Unknown Dorzolamide 2 % drops Active 1 DROPS OPHTHA LMIC Twice daily July 27, 2023 12:00a m Unknown Latanoprost 0.005 % drops Active 1 DROPS OPHTHA LMIC Every evening July 27, 2023 12:00a m Unknown Furosemide 20 mg tablet Active 20 MG PO Every morning July 27, 2023 12:00a m Unknown Famotidine 20 mg tablet Active 20 MG PO Every evening July 27, 2023 12:00a m Unknown Tizanidine 4 mg tablet Discont inued 4 MG PO Every evening July 27, 2023 12:00a m November 29, 2024 11:34 am Isosorbide Mononitrate 30 mg tablet extended release 24 hr Discont inued 30 MG PO Every morning July 27, 2023 12:00a m July 26, 2024 8:42a m Rosuvastati n 10 mg tablet Active 10 MG PO Every evening July 27, 2023 12:00a m Unknown Amlodipine 5 mg tablet Active 5 MG PO Every morning July 27, 2023 12:00a m Unknown Clopidogrel 75 mg tablet Active 75 MG PO Daily July 27, 2023 12:00a m On Hold: Resume on 10/04/24. Unknown Zonisamide 25 mg capsule Active 25 MG PO Twice daily July 27, 2023 12:00a m Unknown Irbesartan 300 mg tablet Active 300 MG PO Every morning July 27, 2023 12:00a m Unknown Sotalol 80 mg tablet Active 40 MG PO Twice daily July 27, 2023 12:00a m Unknown Mometasone 0.1 % cream Discont inued 1 APPLIC TOPICA L Daily 45 2024 1:00am August 20, 2024 6:07p m Apply to radiation site, once a day, AFTER radiation treatments. Amlodipine 5 mg tablet Discont inued 5 MG PO Daily July 20, 2024 1:00am July 26, 2024 8:39a m Clopidogrel (Plavix) 75 mg tablet Discont inued 75 MG PO Daily July 20, 2024 1:00am July 26, 2024 8:40a m Dorzolamide 2 % drops Discont inued 1 DROPS EYE-JAKE TH Three times daily July 20, 2024 1:00am July 26, 2024 8:40a m Famotidine 20 mg tablet Discont inued 20 MG PO Daily July 20, 2024 1:00am July 26, 2024 8:41a m Furosemide 20 mg tablet Discont inued 20 MG PO Every morning July 20, 2024 1:00am July 26, 2024 8:41a m Irbesartan 300 mg tablet Discont inued 300 MG PO Every morning July 20, 2024 1:00am July 26, 2024 8:41a m Isosorbide Mononitrate 30 mg tablet extended release 24 hr Active 30 MG PO Every morning July 20, 2024 1:00am Unknown Latanoprost 0.005 % drops Discont inued 1 DROPS EYE-JAKE TH Every evening July 20, 2024 1:00am July 26, 2024 8:42a m Rosuvastati n 10 mg tablet Discont inued 10 MG PO Every evening July 20, 2024 1:00am July 26, 2024 8:44a m Sotalol 80 mg tablet Discont inued 40 MG PO Twice daily July 20, 2024 1:00am July 26, 2024 8:44a m Tizanidine 4 mg capsule Discont inued 4 MG PO Every evening as needed July 20, 2024 1:00am July 26, 2024 8:45a m Zonisamide 25 mg capsule Discont inued 25 MG PO Twice daily July 20, 2024 1:00am July 26, 2024 8:45a m Albuterol Sulfate 90 mcg/actuati on aerosol powdr breath activated Discont inued 1 INH INHALA TION EVERY 4-6 HOURS as needed July 20, 2024 1:00am July 26, 2024 8:39a m Aspirin 81 mg tablet,chew able Discont inued 81 MG PO Daily July 20, 2024 1:00am July 26, 2024 8:39a m Aspirin-Demetri taminophen- Caffeine (Excedrin Migraine) 250-250-65 mg tablet Discont inued 1 TAB PO EVERY 4-6 HOURS as needed July 20, 2024 1:00am July 26, 2024 8:40a m Diphenhydra mine-Acetam inophen (Tylenol Pm Extra Strength) 25-500 mg tablet Discont inued 2 TAB PO Daily at bedtime as needed July 20, 2024 1:00am July 26, 2024 8:40a m Metformin 500 mg tablet Discont inued 500 MG PO Every morning July 20, 2024 1:00am July 26, 2024 8:43a m Mometasone 0.1 % cream Discont inued 1 APPLIC TOPICA L Daily July 20, 2024 1:00am July 26, 2024 8:43a m Multivitami n (One Daily Multivitami n) tablet Discont inued 1 TAB PO Daily July 20, 2024 1:00am July 26, 2024 8:43a m Omeprazole 40 mg capsule,del ayed release(DR/ EC) Discont inued 40 MG PO Every morning July 20, 2024 1:00am July 26, 2024 8:43a m Ondansetron 4 mg tablet,disi ntegrating Discont inued 8 MG PO Every 8 hours July 20, 2024 1:00am July 26, 2024 8:43a m Prochlorper azine Maleate (Compazine) 10 mg tablet Discont inued 10 MG PO Every 8 hours as needed July 20, 2024 1:00am July 26, 2024 8:44a m Fluticasone Propionate 50 mcg/actuati on spray,suspe nsion Discont inued 2 SPRAY INTRAN CRISTOPHER Daily July 20, 2024 1:00am July 26, 2024 8:41a m administer into each nostril Psyllium Husk (Fiber (Psyllium Husk)) 0.4 gram capsule Discont inued 0.4 GM PO Daily July 20, 2024 1:00am July 26, 2024 8:44a m Doxycycline Monohydrate 100 mg capsule Discont inued 100 MG PO Twice daily July 20, 2024 1:00am July 26, 2024 8:40a m Lidocaine-P rilocaine 2.5-2.5 % cream Discont inued 2 GM TOPICA L as needed July 20, 2024 1:00am July 26, 2024 8:42a m Hydrocodone -Acetaminop hen 5-325 mg tablet Discont inued 1 TAB PO Twice daily as needed July 20, 2024 1:00am July 26, 2024 8:41a m Magic Mouthwash W/Lidocaine 240 Ml Bottle 240 mL bottle Discont inued ML PO Four times daily as needed 240 July 20, 2024 1:00am July 26, 2024 8:42a m Oxycodone 5 mg/5 mL solution Discont inued 5 MG PO EVERY 4-6 HOURS as needed July 20, 2024 1:00am July 26, 2024 8:44a m Potassium Chloride (Klor-Con M20) 20 mEq tablet,ER particles/c rystals Discont inued 20 MEQ PO Twice daily August 23, 2024 12:00a m October 03, 2024 10:25 am Magic Mouthwash W/Lidocaine 240 Ml Bottle 240 mL bottle Discont inued 10 ML PO Four times daily as needed for mucositis August 23, 2024 10:14a m October 03, 2024 10:23 am Take 10ml by mouth, four times a day, as needed. SWISH AND SWALLOW. will call when they need refill Immunizations Immunization Event Date Not Given Reason Dose Number Obstetrics Gyn Physician Lot Number Vaccine Information Statement (VIS) Detail Administration Location COVID-19 mRNA, Comirnaty ([employer]) June 06, 2020 COVID-19 mRNA, Comirnaty ([employer]) June 27, 2020 COVID-19 mRNA, Comirnaty ([employer]) March 06, 2021 COVID-19 Comirnaty ([employer]) Tri-Sucrose 12+ November 25, 2021 COVID-19 (Abine) 12Y and older April 28, 2023 Fluzone TIV High-Dose 65YR+ April 17, 2024 Medical Equipment Device Date Implanted Device Details Vascular port/catheter July 17, 2024 ALEKSANDR: [id number] Issuing Agency: [id number] Device Id: [id number] Expiration Date: 2025-08-14 Lot Number: [id number] Procedures Procedure Date Performed Status PET tumor subq tx strat sb-mt November 13, 2024 12 :26pm completed Relevant Diagnostic Tests and/or Laboratory Data Laboratory Results Test Collection Date/Time Result Date/Time Result Interpretation Reference Range Result Comment Performing Site Corrected White Blood Count November 13, 2024 12:40pm November 13, 2024 1:07pm 8.5 10*3/uL 4.1-10.5 [facility] [id number] [address] [facility] [address] Uncorrect ed WBC Count November 13, 2024 12:40pm November 13, 2024 1:07pm 8.5 10*3/uL 4.1-10.5 [facility] [id number] [address] [facility] [address] Red Blood Count November 13, 2024 12:40pm November 13, 2024 1:07pm 4.11 10*6/uL 3.90-5.60 [facility] [id number] [address] [place] [address] Hemoglobi n November 13, 2024 12:40pm November 13, 2024 1:07pm 12.8 g/dL Below low normal 13.0-17.0 [facility] [id number] [address] [facility] [address] Hematocri t November 13, 2024 12:40pm November 13, 2024 1:07pm 38.5 % Below low normal 38.8-50.0 [facility] [id number] [address] [facility] [address] Mean Corpuscul ar Volume November 13, 2024 12:40pm November 13, 2024 1:07pm 93.7 fL 83.5-101 [facility] [id number] [address] [facility] [address] Mean Corpuscul ar Hemoglobi n November 13, 2024 12:40pm November 13, 2024 1:07pm 31.1 pg 27.5-35.2 [facility] [id number] [address] [facility] [address] Mean Corpuscul ar Hemoglobi n Concent November 13, 2024 12:40pm November 13, 2024 1:07pm 33.2 g/dL 32.5-35.6 [facility] [id number] [address] [facility] [address] Red Cell Distribut ion Width November 13, 2024 12:40pm November 13, 2024 1:07pm 14.7 % 12.0-14.8 [facility] [id number] [address] [facility] [address] Platelet Count November 13, 2024 12:40pm November 13, 2024 1:07pm 223 10*3/uL 150-450 [facility] [id number] [address] [facility] [address] Mean Platelet Volume November 13, 2024 12:40pm November 13, 2024 1:07pm 8.4 fL 6.6-10.1 [facility] [id number] [address] [facility] [address] Neutrophi ls (%) (Auto) November 13, 2024 12:40pm November 13, 2024 1:49pm 65.3 % . [facility] [id number] [address] [facility] [address] Lymphocyt es (%) (Auto) November 13, 2024 12:40pm November 13, 2024 1:49pm 22.1 % . [facility] [id number] [address] [facility] [address] Monocytes (%) (Auto) November 13, 2024 12:40pm November 13, 2024 1:49pm 9.2 % . [facility] [id number] [address] [facility] [address] Eosinophi ls (%) (Auto) November 13, 2024 12:40pm November 13, 2024 1:49pm 2.9 % . [facility] [id number] [address] [facility] [address] Basophils (%) (Auto) November 13, 2024 12:40pm November 13, 2024 1:49pm 0.5 % . [facility] [id number] [address] [facility] [address] Nucleated RBC Relative Count (auto) November 13, 2024 12:40pm November 13, 2024 1:49pm 0.2 /100{WB C} 0-0.5 [facility] [id number] [address] [facility] [address] Neutrophi ls # (Auto) November 13, 2024 12:40pm November 13, 2024 1:49pm 5.6 10*3/uL 1.8-7.7 [facility] [id number] [address] [place] [address] Lymphocyt es # (Auto) November 13, 2024 12:40pm November 13, 2024 1:49pm 1.9 10*3/uL 1.00-4.8 [facility] [id number] [address] [place] [address] Monocytes # (Auto) November 13, 2024 12:40pm November 13, 2024 1:49pm 0.8 10*3/uL 0.0-0.8 [facility] [id number] [address] [place] [address] Eosinophi ls # (Auto) November 13, 2024 12:40pm November 13, 2024 1:49pm 0.2 10*3/uL 0.0-0.45 [facility] [id number] [address] [place] [address] Basophils # (Auto) November 13, 2024 12:40pm November 13, 2024 1:49pm 0.0 10*3/uL 0.0-0.2 [facility] [id number] [address] [place] [address] Red Blood Cell Morpholog y November 13, 2024 12:40pm November 13, 2024 1:49pm Normal Normal [facility] [id number] [address] [place] [address] Platelet Estimate November 13, 2024 12:40pm November 13, 2024 1:49pm Normal Normal [facility] [id number] [address] [place] [address] Platelet Morpholog y Comment November 13, 2024 12:40pm November 13, 2024 1:49pm Normal Normal [facility] [id number] [address] [place] [address]48 Glucose Level November 13, 2024 12:40pm November 13, 2024 1:24pm 108 mg/dL Above high normal 70-100 ADA recommended reference rangeRandom Glucose Reference Range is dependent on time and content of last meal. Glucose of more than 200 mg/dL in a nonstressed, ambulatory subject supports the diagnosis of Diabetes Mellitus. [facility] [id number] [address] [place] [id number] Blood Urea Nitrogen November 13, 2024 12:40pm November 13, 2024 1:24pm 29 mg/dL Above high normal 7-25 [facility] [id number] [address] [place] [id number] Creatinin e November 13, 2024 12:40pm November 13, 2024 1:24pm 0.80 mg/dL 0.70-1.30 [facility] [id number] [address] [place] [id number] Estimated GFR (CKD-EPI) November 13, 2024 12:40pm November 13, 2024 1:24pm > 60.0 mL/Min [facility] [id number] [address] [place] [id number] Sodium Level November 13, 2024 12:40pm November 13, 2024 1:24pm 137 mmol/L 136-145 [facility] [id number] [address] [place], [place] [address] Potassium Level November 13, 2024 12:40pm November 13, 2024 1:24pm 4.2 mmol/L 3.5-5.1 [facility] [id number] [address] [facility] [address] Chloride Level November 13, 2024 12:40pm November 13, 2024 1:24pm 104 mmol/L 98-107 [facility] [id number] [address] [place], [place] [address] Carbon Dioxide Level November 13, 2024 12:40pm November 13, 2024 1:24pm 26.6 mmol/L 21.0-31.0 [facility] [id number] [address] [place] [id number] Anion Gap November 13, 2024 12:40pm November 13, 2024 1:24pm 10.6 mEq/L 6.0-15.0 [facility] [id number] [address] [place] [id number] Calcium Level November 13, 2024 12:40pm November 13, 2024 1:24pm 9.3 mg/dL 8.6-10.3 [facility] [id number] [address] [facility] [address] Magnesium Level November 13, 2024 12:40pm November 13, 2024 1:24pm 2.1 mg/dL 1.9-2.7 [facility] [id number] [address] [place] [address] Total Protein November 13, 2024 12:40pm November 13, 2024 1:24pm 7.3 g/dL 6.4-8.9 [facility] [id number] [address] [facility] [address] Albumin November 13, 2024 12:40pm November 13, 2024 1:24pm 4.2 g/dL 3.5-5.7 [facility] [id number] [address] [facility] [address] Globulin November 13, 2024 12:40pm November 13, 2024 1:24pm 3.1 g/dL [facility] [id number] [address] [place] [address] Albumin/G lobulin Ratio November 13, 2024 12:40pm November 13, 2024 1:24pm 1.4 [facility] [id number] [address] [place] [address] Total Bilirubin November 13, 2024 12:40pm November 13, 2024 1:24pm 0.4 mg/dL 0.3-1.0 [facility] [id number] [address] [place] [address] Aspartate Amino Transf (AST/SGOT ) November 13, 2024 12:40pm November 13, 2024 1:24pm 15 U/L 13-39 [facility] [id number] [address] [place] [address] Alanine Aminotran sferase (ALT/SGPT ) November 13, 2024 12:40pm November 13, 2024 1:24pm 14 U/L 7-52 [facility] [id number] [address] [place] [address] Alkaline Phosphata se November 13, 2024 12:40pm November 13, 2024 1:24pm 80 U/L 34-104 [facility] [id number] [address] [place], [place] [address] Pharmacy Creatinin e Clearance (Chem November 13, 2024 12:40pm November 13, 2024 1:24pm 60.92 [facility] [id number] [address] [place], [place] [address] Bedside Glucose November 13, 2024 12:36pm November 13, 2024 1:04pm 114 mg/dL Random Glucose Reference Range is dependent on time and content of last meal. Glucose of more than 200 mg/dL in a nonstressed, ambulatory subject supports the diagnosis of Diabetes Mellitus. Point of Care testing Diagnostic Imaging Reports Author Mario Urias [facility] Authored November 13, 2024 3:39 pm Report Dictated Date/Time Dictated By Status Radiology Report November 13, 2024 3:39pm Mario kaur Jr DO completed [facility] [place] [place] Main [place] [address] [place] [address] Nuclear Medicine Report Signed Patient: Jair Bennett MR#: [id number] : 1940 Acct:[id number] Age/Sex: 84 / M ADM Date: 5 Loc: Room: Type: [facility] RCR Attending Dr: Talib Faustin MD Copies to: Mario Urias Jr, RAYSHAWN Lobato MD Norleena Poynter, MD~ Ordering Provider: Becky [...] Jr., D.OAidan 11/13/2024 3:50 PM Dictation Location: [place] [address] Transcribed By: [facility] 11/13/24 1550 Dictated By: Mario Urias Jr, DO 11/13/24 1539 Signed By: <Electronically signed by Mario Urias Jr, DO in [place]> 11/13/24 1550 Vital Signs Vital Reading Result Reference Range Collection Date/Time Weight 72.12 kg December 26 1:08pm Height 66 [in_i] October 04, 2024 2:58pm Weight 72.12 kg December 26 1:08pm Body Temperature 97.3 [degF] 97.6-99.0 August 17, 2024 8:23am Heart Rate 90 /min 60-100 August 17, 2024 8:23am Respiratory rate 18 /min 12-August 17, 2024 8:23am Oxygen saturation by Pulse oximetry 95 % 95-100 August 17, 2024 8:23 am BP Systolic 151 mm[Hg] 100-140 August 17, 2024 8:23am BP Diastolic 71 mm[Hg] 60-100 August 17, 2024 8:23am Advance Directives Advance Directive Response Recorded Date/ Time Advance Directives Yes July 26, 025 8:22am Insurance Providers Guarantor Annabelle Lizama Address [address] [place] [id number] Contact Info. Home Phone: Payer Policy Id Subscriber's Name Subscriber Id Effectiv e Date Expiration Date [facility] Medicare Advantage PFFS [id number] Annabelle Lizama [id number] Encounters Encounter Location(s) Arrival/Admit Date Discharge/Depart Date Provider(s) Departed Physician/Provi shaye [facility] December 26, 2024 12:32pm December 26, 2024 1:25pm Becky Crouch APRN Departed Physician/Provi shaye [facility] February 22, 2025 9:41am February 22, 2025 10:08am Becky Crouch APRN Registered [facility] Acute February 22, 2025 9:42am Talib Faustin MD Recent Diagnosis Onset Date Admit Date Squamous cell carcinoma of oropharynx Unknown December 26, 2024 12:32pm Squamous cell carcinoma of oropharynx Unknown February 22, 2025 9:41am Assessments Diagnosis Onset Date Resolution Status Admit Date Squamous cell carcinoma of oropharynx acute December 26 12:32pm Squamous cell carcinoma of oropharynx acute February 22 9:41am Plan of Treatment Author Becky Miko [facility] Authored February 22, 2025 9: 55am Return to clinic in 6 months with [employer] Assessment: 84-year-old male with stage II T1 [...] tube was removed last month. [facility] December 26, 2024 1: 41pm Refer for G-tube removal Return to clinic [...] placed by surgery here at [facility] and patient is hopeful to have this [...] Date ANC>=1500 July 20, 2024 10:08am July 1:00am ANC>=1500 August 09, 2024 10:04am August [...] Acute Goals Author Authored Date Maintain/increase activity levels * Understands factors that may lead to activity intolerance * Helps perform self care activities * Maintains maximum range of motion * Increase/regain muscle mass and strength * Maintains VS WNL during activity * Maintain intact skin integrity Updated: 06/29/2022 [facility] July 26, 2024 8:12am
--- OUTSIDE RECORDS SUMMARY | 2025-02-23 08:33 | XMS_ITS | Encounter Summary ---
Author Organization [facility] Address [address] [place] [address] Phone Care Team Providers Care Veneer Glue Jointer Feedback Name Role Phone Demetrius Mirza MD Primary Care Provider [phone] Encounter Details Date Type Department Care Team (Late st Contact Info) Description 01/27/2023 Scanned Document [facility] [address] [place] [address] Conversion, Onbase Social History Tobacco Use Types [...] Description 06/08/2025 1:30 PM EST Office Visit [facility] [address] 1[address] [place] [address] [place] [address] [place] [address] documented as of this encounter Procedures Procedure Name Priority Date/Time Associated Diagnosis Comments OUTSIDE GENERIC TESTING 01/27/2023 documented in this encounter Results * OUTSIDE GENERIC TESTING (01/27/2023) Anatomical Region Laterality Modality Other Narrative 01/27/2023 Ordered by an unspecified provider. us Onbase Conversion OUTSIDE SCAN Final Result documented in this encounter Visit Diagnoses Not on filedocumented in this encounter Care Teams Veneer Glue Jointer Feedback Relationship Specialty Start Date End Date Demetrius Mirza MD [address] [facility] [place] [address] PCP - General Family Medicine 04/11/24 documented as of this encounter
--- OUTSIDE RECORDS SUMMARY | 2025-02-23 08:33 | XMS_ITS | Clinical Summary ---
Author Organization [facility] Address [address] 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) Encounters Date Type Department Care Team Description 01/05/2025 Abstract [facility] [address] [place] [address] Mary Schneider MD 12/11/2024 1:45 PM EDT Office Visit [facility] [address] [facility] [address]nd [place] [address] Mary Schneider MD Personal history of malignant [...] Description 06/08/2025 1:30 PM EST Office Visit [facility] [address] [place] [address] [place] [address] [place] [address] Health Maintenance Due Date Last Done Comments Diabetes: Hemoglobin A1C 1940 Diabetes: Urine Protein Screening 1940 Echocardiogram 1940 Lipid Panel 1940 Medicare Annual Wellness Visit (AWV) 1940 Diabetes: Retinopathy Screening 10/29/1949 DTaP/Tdap/Td Vaccines (1 - Tdap) 10/29/1961 COVID-19 Vaccine (6 - season) 2025 04/28/2023, 11/25/2021, 03/06/2021, Additional history [...] lesion 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) from Last 3 Months or Most Recently Relevant to Health Maintenance Results * (ABNORMAL) Basic Metabolic Panel (04/11/2024 9:14 AM EST) Glucose 109(H) 74 - 99 mg/dL LAB CHEMISTRY METHOD 04/11/2024 11:09 AM EST [facility] Sodium 142 136 - 145 mmol/L LAB CHEMISTRY METHOD 04/11/2024 11:09 AM EST [facility] Potassium 4.5 3.5 - 5.3 mmol/L LAB CHEMISTRY METHOD 04/11/2024 11:09 AM EST [facility] Chloride 107 98 - 107 mmol/L LAB CHEMISTRY METHOD 04/11/2024 11:09 AM EST [facility] Bicarbonate 25 21 - 32 mmol/L LAB CHEMISTRY METHOD 04/11/2024 11:09 AM EST [facility] Anion Gap 15 10 - 20 mmol/L LAB CHEMISTRY METHOD 04/11/2024 11:09 AM EST [facility] Urea Nitrogen 18 6 - 23 mg/dL LAB CHEMISTRY METHOD 04/11/2024 11:09 AM EST [facility] Creatinine 0.96 0.50 - 1.30 mg/dL LAB CHEMISTRY METHOD 04/11/2024 11:09 AM EST [facility] eGFR 78 >60 mL/min/1. 73m*2 LAB CHEMISTRY METHOD 04/11/2024 11:09 AM EST [facility] Comment: Calculations of estimated GFR are performed using the 2020 CKD-EPI Study Refit equation without the race variable for the IDMS-Traceable creatinine methods. https://jasn.asnjournals.org/content//ASN.9245525103 Calcium 9.9 8.6 - 10.6 mg/dL LAB CHEMISTRY METHOD 04/11/2024 11:09 AM EST [facility] Blood Venous blood specimen / Unknown Venipuncture / Unknown 04/11/2024 9:14 AM EST 04/11/2024 10:37 AM EST us Fe Max MD LAB BLOOD ORDERABLES Final Re sult [facility] [address] [facility] [address] [place] [id number] from Last 3 Months or Most Recently Relevant to Health Maintenance Insurance [facility] MEDICARE Member Subscriber Plan / Payer (Ef fective 2023-Present) Name:Jair Bennett Relation to Subscriber:Self Name:Jair Bennett Payer ID:[id number] (NAIC) Type:Not on file Address: [address] DUAL COMPLETE [employer] MEDICARE [employer] [facility] MEDICARE [facility] DUAL COMPLETE [facility] MEDICARE [employer] Advance Directives For more information, please contact: [phone] (Available ) Documents on File Type Date Recorded Patient Manual Lathe Operator Expl anation Healthcare Power of Atty 05/11/2024 Living Will 05/11/2024 Care Teams Intake Coordinator Relationship Specialty Start Date End Date Demetrius Mirza MD [address] [facility] [place] [address] PCP - General Family Medicine 04/11/24
--- NOTE | 2025-02-23 08:38 | XR_ITS ---
[place] [id number] Patient Name: JEREMIE GROSS MRN: [id number] date: 1940 Sex: M Assigned Patient Location: [facility] Current Patient Location: [facility] Accession/Order Number: [id number] Exam Date: 02/23/2025 08:57 Report Date: 02/23/2025 09:41 At the request of: ANTONIO ROQUE NP Procedure: XR lumbar spine 6V w bending LUMBAR SPINE THE FLEXION-EXTENSION VIEWS- 6 views: CLINICAL HISTORY: Low Sacral Pain, Sacroiliitis COMPARISON: CT 02/02/2025 and plain films 07/19/2019 AP, lateral (neutral, flexion and extension) and both oblique views were obtained. His osteopenia. There is no evidence of fracture. There is continued mild retrolisthesis of L1 on L2 and L2 on L3. There is also slight anterolisthesis of L5 with respect to adjacent vertebra. There is disc space narrowing at L1-2 and L 2-3 . Endplate spurring is present, greater proximally. There is facet disease, greater distally. No obvious pars defect is seen. The sacroiliac joints are maintained and show mild sclerosis. Mild atherosclerotic disease is noted. XR/XR lumbar spine 6V w bending IMPRESSION: DEGENERATIVE CHANGES, DESCRIBED. Impression dictated by: Lorene Valdez M.D. 02/23/2025 9:41 AM Dictation Location: [place] [address] Electronically authenticated by: [id number] Date: 02/23/2025 09:41
--- OUTSIDE RECORDS SUMMARY | 2025-02-23 08:40 | XMS_ITS | CCD ---
Author Organization [facility] Care Team Providers Care Dip Dyer Name Role Phone ELTAHAWY, EHAB A Admitting Unavailable ELTAHAWY, EHAB A Attending Unavailable DEMETRIUS COOPER Referring Unavailable DEMETRIUS COOPER Primary Care Unavailable Param Cosme Attending Provider Demetrius Cooper Primary Care Provider [phone] Param Cosme Attending Provider Demetrius Cooper Primary Care Provider Leti Garcia Unavailable MG LONDON Primary Care Physician KAT Westfall Attending Provider [phone] MD Mg [place] Primary Care Provider [phone] KAT Westfall Attending Provider [phone] MD Mg [place] Primary Care Provider MD Erwin Salazar Attending Provider Erwin Salazar Unavailable MARCE Hardy Attending Provider KAT Westfall Other Provider Demetrius Cooper Primary Care Physician Griselda Pennington Unavailable ALANNA HARDY Admitting Unavailable ALANNA HARDY Attending Unavailable LITA, DR MG Omalley Primary Care Unavailable BAZINE, DR ERWIN Bell Consulting Unavailable ALANNA HARDY [...] NADERER, DR MG Omalley Primary Care Unavailable BAZINE, DR ERWIN Bell Consulting Unavailable ELTAHAWY, DR [...] Gisele Unavailable MD Erwin Salazar Attending Provider [phone] MD Demetrius Cooper Primary Care Provider MD Inez Henderson Attending Provider Esme Brunson NP Gisele Attending Provider [phone] FABIO Ruby Attending Provider [phone] Flori GARZA, [facility] Unavailable MD Demetrius Cooper Primary Care Provider DAISHA Brunson Gisele Attending Provider Clarissa Corado MD Unavailable Demetrius Cooper MD Primary Care Provider Flori GARZA, [facility] A. Unavailable MD Demetrius Cooper Primary Care Provider MD Luc Ham Jr Attending Provider Luc Guo MD Unavailable [phone] Demetrius Cooper MD Primary Care Provider LUC [...] Attending Provider Mary Schneider MD Referring Provider [phone] Dennis Gray MD Attending Provider Mary Schneider MD Referring Provider [phone] Talib Faustin MD Attending Provider Demetrius Cooper Admitting Unavailable Demetrius Cooper Attending Unavailable Demetrius Cooper Admitting Unavailable Demetrius Cooper Attending Unavailable Demetrius Cooper Attending Unavailable Talib Faustin Attending Unavailabl e Talib Faustin Admitting Unavailalyssia e Mary Schneider Referring Unavailable Demetrius Cooper Primary Care Unavailable Talib Faustin Admitting Unavailabl e Jared-Talib Hargrove Attending Unavailabl e Demetrius Cooper E [...] Provider Debora Wild APRN Attending Provider [phone] Dennis Gray MD Attending Provider Maru Ma DO Attending Provider Mary Schneider MD Referring Provider [phone] Talib Faustin MD Attending Provider [phone] Dennis Gray MD Attending Provider Pepito Galicia [...] Other Provider Zeke Brennan MD Attending Provider [phone] Demetrius Cooper MD Primary Care Provider [phone] Mary Schneider MD Referring Provider Talib Faustin MD Attending Provider Maru Hayes MD Emergency Provider [phone] Clarissa Corado MD Unavailable Demetrius Miller MD [...] Provider Debora Wild APRN Attending Provider Veena Ross DO Attending Provider aTlib Faustin MD Attending Provider Mary Schneider MD Referring Provider Dennis Gray MD Attending Provider Inez Henderson Attending Unavaila ble Demetrius Cooper Attending Unavailable Demetrius Cooper Attending Unavailable Demetrius Cooper Attending Unavailable Demetrius Cooper Attending Unavailable Demetrius Cooper Attending Unavailable Ross, Demetrius E. Admitting Unavailable Ross, Demetrius E. Attending Unavailable Demetrius Cooper MD Primary Care Provider [phone] Debora Wild APRN Attending Provider Debora Wild APRN Other Provider Becky Crouch APRN Attending Provider Mary Schneider MD Referring Provider [phone] MARY SCHNEIDER Attending Unavailable SCHNEIDER, MARY N Referring [facility] Unavailable SCHNEIDER, MARY N Admitting Unavailable SCHNEIDER, MARY N Attending Unavailable [facility] Primary Care Unavailable SCHNEIDER, MARY N Admitting Unavailable SCHNEIDER MARY N Attending Unavailable [facility] Primary Care Unavailable SCHNEIDER, MARY N Referring Unavailable [facility] Primary Care Unavailable SCHNEIDER MARY N Attending Unavailable [facility] Primary Care Unavailable SCHNEIDER, MARY N Referring Unavailable [facility] Primary Care Unavailable SCHNEIDER, MARY N Attending Unavailable [facility] Primary Care Unavailable SCHNEIDER, MARY N Attending Unavailable [facility] Primary Care Unavailable Josh CASON, Clarissa Unavailable [phone] MATTEO AMBROSE Attending Unavailable DENNIS GRAY Referring Unavailable ISABEL ROMANO Attending Unavailable MATTEO AMBROSE Attending Unavailable ITZKOWITZ, VEENA H Attending Unavailable MISSY WESTFALL Attending Unavailable ITZKOWITZ, VEENA H Attending Unavailable TIMMIS, LUC H Attending Unavailable ALLISON DEMETRIUS E Referring Unavailable TIMMIS, LUC H Referring Unavailable MISSY WESTFALL Attending Unavailable TIMMIS, LUC H Attending Unavailable TIMMIS, LUC H Attending Unavailable TIMMIS, LUC H Attending Unavailable ITZKOWITZ, VEENA H Attending Unavailable GELACIO PAREDES Referring Unava ilable STEVENZCLEMENTINA, VEENA H Attending Unavailable STACEY PATEL Referring Unavailable STACEY PATEL Attending Unavailable STACEY PATEL Referring Unavailable BOY BUITRAGO Attending Unavailable STACEY PATEL Referring Unavailable STACEY PATEL Referring Unavailable STACEY PATEL Attending Unavailable STACEY PATEL Admitting Unavailable BRAYANCORIN Referring Unavailable STACEY PATEL Referring Unavailable STACEY PATEL Attending Unavailable STACEY PATEL Referring Unavailable Matteo Melo Attending Unavailable Matteo Melo Admitting Unavailable Ross, Demetrius E Primary Care Unavailable Debora Wild Admitting Unavailable Debora Wild Attending Unavailable Ross, Demetrius E Primary Care Unavailable Debora Wild Attending Unavailable Ross, Demetrius E Primary Care Unavailable Debora Wild M Admitting Unavailable Maru Hayes Attending Unavailable Maru Hayes Admitting Unavailable Ross, Demetrius E Primary Care Unavailable Zeke Brennan Attending Unavailable Jaiden Nance Admitting Unavailable Yash Thomas Unavailable Ross, Demetrius E Primary Care Unavailable Dennis Gray Attending Unavailable Dennis Gray Admitting Unavailable Ross, Demetrius E Primary Care Unavailable Ross, Demetrius E Primary Care Unavailable Talib Faustin Attending Unavailabl e Talib Faustin Yaser Admitting Unavailabl Mary Griffiths Referring Unavailable Ross, Demetrius E Primary Care Unavailable Maru Ma Attending Unavailable Maru Ma Admitting Unavailable Pepito Galicia Attending Unavailable Pepito Galicia Admitting Unavailable Ross, Demetrius E Primary Care Unavailable Ross, Demetrius E Primary Care Unavailable Debora Wild Admitting Unavailable Debora Wild Attending Unavailable Ross, Demetrius E Primary Care Unavailable Robina Wildine M Admitting Unavailable Debora Wild Attending Unavailable Veena Ross Attending Unavailable Veena Ross Admitting Unavailable Ross, Demetrius E Primary Care Unavailable Unavailable Unavailable Unavailable Allergies Allergy Classification Reported Allergen(s) Allergy Type Date of Onset Reaction(s) Facility (3 sources) Desonide Drug Allergy 0 [facility] (1 source) Niacin Drug Allergy 0 [facility] (20 sources) Adhesive agent; Translations: [adhesive] Drug allergy 4 [facility] (20 sources) Niacin; Translations: [niacin] Drug Allergy 9 hives, Itching (finding), Itching, Unknown [facility] (20 sources) Adhesive bandage; Translations: [Adhesive Bandage] Allergy to substance Eruption of skin (disorder) [facility] (5 sources) Niacin Drug Allergy hives [facility] Other (2 sources) Niaspan Starter Pack Drug allergy (disorder) 8 [facility] Repository (15 sources) Adhesive Tape-Silicones; Translations: [ADHESIVE TAPE-SILICONES] Drug Allergy 9 Rash [facility] (20 sources) Niacin Drug Allergy 9 Itching, Unknown [facility] (20 sources) Wound Dressing Adhesive Drug Allergy 3 Unknown [facility] (4 sources) Niacin; Translations: [Niaspan ER] Drug Allergy [facility] Repository (2 sources) Niacin Drug Allergy 5 [facility] Repository Medications Current Medications Medication [...] q4hr for headache, 60 cap(s), Refill(s) 1, [id number], 160, cm, 11/29/23 10:29:00 EDT, Height/Length Dosing, 78.5, kg, 11/29/23 10:29:00 EDT, Weight Dosing Start Date: 11/29/23 Status: Ordered Quantity: 60.0 Unit: cap(s) Repeat number: 2 Start: 12-15-2022 End: 10-11-2024 take 1 tablet by mouth every four hours as needed jwyrilkojs-uxnhptixzdakk-ighu 50-325-40 mg tablet Take 1 tablet by [...] MOUTH EVERY 6 HOURS, [facility] ([facility]), 163, cm, 11/04/22 15:03:00 EDT, Height/Length Dosing, 76, kg, 11/04/22 15:03:00 EDT, Weight Dosing Start Date: 11/09/22 Status: Ordered Quantity: 17.0 Unit: g Repeat number: 1 Start: 11-09-2022 Albuterol (Eqv -ProAir HFA) 90 mcg/inh inhalation aerosol See Instructions, 17 gm, Refill(s) 6, USE 2 INHALATIONS BY MOUTH EVERY 6 HOURS, [facility] ([facility]), 163, cm, 11/04/22 15:03:00 EDT, Height/Length Dosing, 76, kg, 11/04/22 15:03:00 EDT, Weight Dosing Start Date: 11/09/22 Status: Ordered {1 (Ascorbic Acid 7540 MG / POLYETHYLENE GLYCOL 3350 88324 MG / Potassium Chloride 1200 MG / Sodium Ascorbate 82124 MG / Sodium Chloride 3200 MG Powder for Oral Solution) / 1 (POLYETHYLENE GLYCOL 3350 235937 MG / Potassium Chloride 1000 MG / Sodium Chlori (5 sources) Osmotic Laxative, Vitamin C Start: 12-15-2022 Plenvu oral powder for reconstitution See Instructions, 1 EA, Refill(s) 0, Prior to colonoscopy., [id number], 163, cm, 12/15/22 12:03:00 EDT, Height/Length Dosing, [...] procedure, # 10 cap(s), Refills(s) 0, Pharmacy: [facility] #[id number], 167, cm, 04/27/22 8:46:00 EST, Height/Length Dosing, 87.1, kg, 04/27/22 8:46:00 EST, Weight Dosing Start Date: 04/27/22 Status: Ordered cholestyramine 4 g/5 g Oral Pwdr (1 source) Start: 023 cholestyramine 4 g/5 g Oral Pwdr 1 packet(s), Oral, TID, 90 EA, Refill(s) 0, [facility] ([facility] ), 167.6, cm, 08/24/22 8:10:00 EDT, Height/Length Dosing, 83.4, kg, 08/24/22 8:10:00 EDT, Weight Dosing Start Date: 08/24/22 Status: Ordered sugar-free cholestyramine resin 4000 mg powder for oral suspension (7 sources) Bile Acid Sequestrant Start: 024 cholestyramine 4 g/5 g Oral Pwdr 5 gram, 1 EA, Oral, BID, 630 gm, Refill(s) 0, one scoop BID 90 day supply, [id number], 162, cm, 08/30/23 10:00:00 EDT, Height/Length Dosing, 78.4, kg, 08/30/23 10:00:00 EDT, Weight Dosing Start Date: 09/06/23 Status: Ordered Start: 05-25-2023 End: 08-23-2023 take 4 g by mouth once daily Questran 4 g/9 g oral pow shaye 4 gm, Oral, Daily, X 90 day(s), # 90 packet(s), Refills(s) 0, Pharmacy: [facility] #[id number], 163, cm, 05/25/23 12:33:00 EST, Height/Length Dosing, [...] intravenous, Once PRN Proced ure, Starting on 06/05/24 at 1345, For 1 dose, Intraprocedure Fish Oils (7 sources) Start: 11-04-2022 White-3 Fish O il Oral, Daily, Refills(s) 0, Prophylaxis Start Date: 11/04/22 Status: Ordered Start: 11-04-2022 White-3 Fish O il Oral, Daily, Refills(s) 0 Start Date: 11/04/22 Status: Ordered fluticasone 0.05 mg/inh Nasal [place] (1 source) Start: 04-24-2020 fluticasone 0. 05 mg/inh Nasal [place] Daily, Refill(s) 0 Start Date: 04/24/20 Status: [...] hyperglycemia, without long-term current use of insulin ([facility]) TAKE 1 TABLET BY MOUTH TWICE DAILY [...] hyperglycemia, without long-term current use of insulin ([facility]) TAKE 1 TABLET BY MOUTH TWICE DAILY [...] as directed for 6 days September, Active [facility] Medication (6 sources) Start: 11-08-2023 [facility] Medication Transdermal Therapeutics up to four times per day: Meloxicam 0.5%/ Doxepin 3%/ Amantidine 3%/Dextromethorphan 2%/ Lidocaine 2% Start Date: 11/08/23 Status: Ordered Repeat number: 1 Start: 11-08-2023 [facility] Medicatio n Transdermal Therapeutics up to four [...] 0, Prophylaxis Start Date: 04/24/20 Status: Ordered White 3 (5 sources) White 3 Active omega-3 acid ethyl esters (chcf) [...] Pantoprazole Sod ium Active polyethylene glycol 3350 21790 mg powder for oral solution (7 sources) Osmotic Laxative Start: 09-20-2024 Potassium Chloride (9 sources) Start: 08-30-2024 take 1 tablet by mouth twice daily Potassium Chloride (Fdj-Bsqd-Tem M20) 20 mEq oral tablet, extended release [...] 8:40am Start: 11-08-2023 [facility] at bed[facility] Tylenol PM Oral, Once a day (at bedtime), Refill(s) 0, 250mg- 2 tabs at HS Start Date: 11/08/23 Status: Ordered take 25-500 mg by mo [facility] once as needed diphenhydrAMINE-acetaminophen (Tylenol [...] tablet Discontinued 200 MG PO Twice daily 10 17August 21, 2024 12:00am October 03, 2024 10:22am [...] Corticosteroid Start: 01-18-2024 fluticasone Nasal 0.05 mg/inh [place] See Instructions, 16 gm, Refill(s) 0, USE [...] (F LONASE) 50 mcg/actuation nasal spray 1 [place]. 08/24/2022 Active Start: 08-24-2022 take 1 spray(s) nasa l route twice daily Flonase 0.05 mg/inh [place] 1 spray(s), Nasal, BID, 16 gram, Refill(s) 0, each nostril, [facility] ([facility] ), 167.6, cm, 08/24/22 8:10:00 [...] for 30 Active Comment on above: 1 [place]. irbesartan 300 mg oral tablet (20 sources) [...] oral tablet (20 sources) Nitrate Vasodilator Start: take 1 tablet by mouth every [...] 2024 1:00am July 26, 2024 8:43am nystatin 730154 unt oral tablet (20 sources) Polyene Antifungal Start: 08-17-2024 End: 11-23-2024 take 1 tablet by mouth four times daily Nystatin 500,000 unit tablet Discontinued [id number] UNIT PO Four times daily 40 September 14, 2024 9:24am November 23, 2024 10:01am Start: 08-02-2024 End: 08-20-2024 Nystatin 100,000 unit/mL alisai pension Discontinued [id number] UNIT PO Four times daily 224 August 02, 2024 12:00am August 20, 2024 6:07pm administer 1/2 of dose in each side of the mouth Nystatin 100,000 unit/mL suspension (8 sources) Start: 08-02-2024 End: 08-20-2024 Nystatin 100,000 unit/mL suspension Discontinued [id number] UNIT PO Four times daily 224 14 March 19th, 2025 12:00am August 20, 2024 6:07pm administer 1/2 of dose in each side of the mouth Start: 08-02-2024 Nystatin 100,0 00 unit/mL suspension Active [id number] UNIT PO Four times daily 224 August [...] Coronary arteriosclerosis; Translations: [Atherosclerotic heart disease of [place] coronary artery without angina pectoris] Onset: 9 [...] Chronic Comment on above: noted in 08/20/2024 [facility] [place] Note page 5. 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 added per OP [...] encounter status 02-25-2023 Unclassified (4 sources) A [facility] screening has identified you as [...] Four Ways to Beat the Frailty Risk [email or web address] x-kibzcz-igwr-ways-to- olob-oyc-uxc ilty-risk 08-21-2024 Unclassified (1 source) Mild pulmonary [...] Range Facility Orders Onlyon 02-06-2025 Orders Only [id number] [address] P 1940 M Date Provider Department Center 02/06/2025 TSACEY ERNANDEZ C CARD [facility] Family History Problem Relation Age of Onset Coronary artery disease Mother Kidney disease Mother Heart failure Mother Family Status - Relation Status Age at Mother Father [facility] Office Visiton 12-05-2024 Follow-up visit [id number] [address] P 1940 M Date Provider Department Center 12/05/2024 STACEY ERNANDEZ CARD [facility] Family History Problem Relation Age of Onset Coronary artery disease Mother Kidney disease Mother Heart failure Mother Family Status - Relation Status Age at Mother Father Level of Service:00789 [place] OFFICE/OUTPATIENT ESTABLISHED LOW MDM 20 MIN [facility] Ambulatory Visit Summaryon 0 11-21-2024 Ambulatory Visit [...] Film) fluticasone nasal (fluticasone Nasal 0.05 mg/inh [place]) furosemide (furosemide 20 mg Tab) irbesartan (irbesartan [...] fluticasone nasal (fluticasone Nasal 0.05 mg/ inh [place]) See instructions USE 1 SPRAY IN BOTH [...] to opioid therapy 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 Normal [facility] Family Medicine Office/Clini c Noteon 11-21-2024 [...] of clutter to prevent tripping and/or falling. [place] Advance Directives reviewed, present at home. Encouraged [...] healthy weight. (more content not included)... Normal [facility] Comment on above: Result Comment: Elec tronically Signed By: BELINDA NETWORK SECURITY ADMINISTRATOR, MARICRUZ A\.br\Date and Time Signed: 11/21/24 16:03 EDT\.br\Electronically Co-Signed By: Monse Puckett\.br\Date and Time Co-Signed: 11/21/24 14:59 EDT Alanine aminotransferase [En zymatic activity/volume] in Serum or PlasmaOrdered By: Elif Carroll on 11-13-2024 ALT [Catalytic activity/Vol] 14 U/L Normal 7-52 [facility] Comment on above: Performed By: #### C BC, MG, CMP #### [facility] [address] [place] [address] [place] Albumin [Mass/volume] in Ser um or Plasma by Bromocresol green (BCG) dye binding methoOrdered By: Elif Carroll on 11-13-2024 Albumin BCG dye [Mass/Vol] 4.2 g/dL 3.5-5.7 [facility] Alkaline phosphatase [Enzyma tic activity/volume] in Serum or PlasmaOrdered By: Elif Carroll on 11-13-2024 ALP [Catalytic activity/Vol] 80 U/L Normal 34-104 [facility] Comment on above: Performed By: #### C BC, MG, CMP #### [facility] [address] [place] [address] [place] Aspartate aminotransferase [ Enzymatic activity/volume] in Serum or PlasmaOrdered By: Elif Carroll on 11-13-2024 AST [Catalytic activity/Vol] 15 U/L Normal 13-39 [facility] Comment on above: Performed By: #### C BC, MG, CMP #### [facility] [address] [place] [address] [place] Basophils [#/volume] in Bloo d by Automated countOrdered By: Elif Carroll on 11-13-2024 Basophils (Bld) [#/Vol] 0.0 10*3/uL Normal 0.0-0.2 [facility] Comment on above: Performed By: #### C BC, MG, CMP #### [place] [address] [place] Basophils/100 leukocytes in Blood by Automated countOrdered By: Elif Carroll on 11-13-2024 Basophils/100 WBC (Bld) 0.5 % Normal . [facility] Comment on above: Performed By: #### C BC, MG, CMP #### [address] Bilirubin.total [Mass/volume ] in Serum or PlasmaOrdered By: Elif Carroll on 11-13-2024 Bilirubin [Mass/Vol] 0.4 mg/dL Normal 0.3-1.0 [facility] Comment on above: Performed By: #### C BC, MG, CMP #### [address] Calcium [Mass/volume] in Ser um or PlasmaOrdered By: Elif Carroll on 11-13-2024 Calcium [Mass/Vol] 9.3 mg/dL Normal 8.6-10.3 [facility] Comment on above: Performed By: #### C BC, MG, CMP #### [address] Capillary blood glucose juan urement by glucometer (mass/volume)Ordered By: Talib Faustin on 11-13-2024 Glucose [Mass/Vol] 114 mg/dL Normal [facility] Comment on above: Random Glucose Refer ence Range is dependent on time and content of last meal. Glucose of more than 200 mg/dL in a nonstressed, ambulatory subject supports the diagnosis of Diabetes Mellitus. Result Comment: [place] om Glucose Reference Range is dependent on time and content of last meal. Glucose of more than 200 mg/dL in a nonstressed, ambulatory subject supports the diagnosis of Diabetes Mellitus. PERFORMED BY: [address] [place] [address] PATHOLOGIST BRAID MAKER AD ROSENBAUM M.D. Performed By: #### C BC, CMP, MG #### [address] Carbon dioxide, total [Moles /volume] in Serum or PlasmaOrdered By: Elif Carroll on 11-13-2024 CO2 [Moles/Vol] 26.6 mmol/L Normal 21.0-31.0 [facility] Comment on above: Performed By: #### C BC, MG, CMP #### [address] Chloride [Moles/volume] in S stephanie or PlasmaOrdered By: Elif Carroll on 11-13-2024 Chloride [Moles/Vol] 104 mmol/L Normal 98-107 [facility] Comment on above: Performed By: #### C BC, MG, CMP #### [address] Comprehensive Metabolic Pane obdulio 11-13-2024 Albumin [Mass/Vol] 4.2 g/dL Normal 3.5-5.7 [facility] Comment on above: Performed By: #### C BC, MG, CMP #### [address] Creatinine Clr Calc Pharmacy 60.92 Normal [facility] Comment on above: Performed By: #### C BC, MG, CMP #### [address] GFR/1.73 sq M.predicted MDRD (S/P/Bld) [Vol rate/Area] mL/min/{1.73_m2} Normal [facility] Comment on above: Performed By: #### C BC, MG, CMP #### [address] Creatinine [Mass/volume] in Serum or PlasmaOrdered By: Elif Carroll on 11-13-2024 Creatinine [Mass/Vol] 0.80 mg/dL Normal 0.70-1.30 [facility] Comment on above: Performed By: #### C BC, MG, CMP #### [address] Eosinophils [#/volume] in Bl ood by Automated countOrdered By: Elif Carroll on 11-13-2024 Eosinophils (Bld) [#/Vol] 0.2 10*3/uL Normal 0.0-0.45 [facility] Comment on above: Performed By: #### C BC, MG, CMP #### [address] Eosinophils/100 leukocytes i n Blood by Automated countOrdered By: Elif Carroll on 11-13-2024 Eosinophils/100 WBC (Bld) 2.9 % Normal . [facility] Comment on above: Performed By: #### C BC, MG, CMP #### [facility] [address] Erythrocyte distribution wid th [Ratio] by Automated countOrdered By: Elif Carroll on 11-13-2024 Erythrocyte distribution width (RBC) [Ratio] 14.7 % Normal 12.0-14.8 [facility] Comment on above: Performed By: #### C BC, MG, CMP #### [facility] [address] Erythrocyte morphology findi ng [Identifier] in BloodOrdered By: Elif Carroll on 11-13-2024 RBC morphology finding Nom (Bld) Normal Normal Normal [facility] Comment on above: Performed By: #### C BC, MG, CMP #### [address] Erythrocytes [#/volume] in B lood by Automated countOrdered By: Elif Carroll on 11-13-2024 RBC (Bld) [#/Vol] 4.11 10*6/uL Normal 3.90-5.60 [facility] Comment on above: Performed By: #### C BC, MG, CMP #### [address] Glucose [Mass/volume] in Ser um or PlasmaOrdered By: Elif Carroll on 11-13-2024 Glucose [Mass/Vol] 108 mg/dL High 70-100 [facility] Comment on above: ADA recommended refe rence rangeRandom Glucose Reference Range is dependent on time and content of last meal. Glucose of more than 200 mg/dL in a nonstressed, ambulatory subject supports the diagnosis of Diabetes Mellitus. Result Comment: [place] om Glucose Reference Range is dependent on time and content of last meal. Glucose of more than 200 mg/dL in a nonstressed, ambulatory subject supports the diagnosis of Diabetes Mellitus. ADA recommended reference range Performed By: #### C BC, MG, CMP #### [address] Hematocrit [Volume Fraction] of Blood by Automated countOrdered By: Elif Carroll on 11-13-2024 Hematocrit (Bld) [Volume fraction] 38.5 % Low 38.8-50.0 [facility] Comment on above: Performed By: #### C BC, MG, CMP #### [address] Hemoglobin [Mass/volume] in BloodOrdered By: Elif Carroll on 11-13-2024 Hemoglobin (Bld) [Mass/Vol] 12.8 g/dL Low 13.0-17.0 [facility] Comment on above: Performed By: #### C BC, MG, CMP #### [address] Leukocytes [#/volume] correc suzy for nucleated erythrocytes in Blood by Automated counOrdered By: Elif Carroll on 11-13-2024 WBC corrected for nucl RBC Auto (Bld) [#/Vol] 8.5 10*3/uL 4.1-10.5 [facility] Leukocytes [#/volume] in Blo od by Automated countOrdered By: Elif Carroll on 11-13-2024 WBC (Bld) [#/Vol] 8.5 10*3/uL Normal 4.1-10.5 [facility] Comment on above: Performed By: #### C BC, MG, CMP #### [place] [address] [place] Lymphocytes [#/volume] in Bl ood by Automated countOrdered By: Elif Carroll on 11-13-2024 Lymphocytes (Bld) [#/Vol] 1.9 10*3/uL Normal 1.00-4.8 [facility] Comment on above: Performed By: #### C BC, MG, CMP #### [place] [address] [place] Lymphocytes/100 leukocytes i n Blood by Automated countOrdered By: Elif Carroll on 11-13-2024 Lymphocytes/100 WBC (Bld) 22.1 % Normal . [facility] Comment on above: Performed By: #### C BC, MG, CMP #### [address] MCH [Entitic mass] by Automa suzy countOrdered By: Elif Carroll on 11-13-2024 MCH (RBC) [Entitic mass] 31.1 pg Normal 27.5-35.2 [facility] Comment on above: Performed By: #### C BC, MG, CMP #### [address] MCHC Auto (RBC) [Mass/Vol]Or dered By: Elif Carroll on 11-13-2024 MCHC (RBC) [Mass/Vol] 33.2 g/dL 32.5-35.6 [facility] MCV [Entitic volume] by Auto mated countOrdered By: Elif Carroll on 11-13-2024 MCV (RBC) [Entitic vol] 93.7 fL Normal 83.5-101 [facility] Comment on above: Performed By: #### C BC, MG, CMP #### [address] Magnesium [Mass/volume] in S stephanie or PlasmaOrdered By: Elif Carroll on 11-13-2024 Magnesium [Mass/Vol] 2.1 mg/dL Normal 1.9-2.7 [facility] Comment on above: Result Comment: PERF ORMED BY: [place] [address] PATHOLOGIST BRAID MAKER AD ROSENBAUM M.D. Performed By: #### C BC, MG, CMP #### [address] Monocytes [#/volume] in Bloo d by Automated countOrdered By: Elif Carroll on 11-13-2024 Monocytes (Bld) [#/Vol] 0.8 10*3/uL Normal 0.0-0.8 [facility] Comment on above: Performed By: #### C BC, MG, CMP #### [address] Monocytes/100 leukocytes in Blood by Automated countOrdered By: Elif Carroll on 11-13-2024 Monocytes/100 WBC (Bld) 9.2 % Normal . [facility] Comment on above: Performed By: #### C BC, MG, CMP #### [facility] [address] [place] [address] Neutrophils [#/volume] in Bl ood by Automated countOrdered By: Elif Carroll on 11-13-2024 Neutrophils (Bld) [#/Vol] 5.6 10*3/uL Normal 1.8-7.7 [facility] Comment on above: Performed By: #### C BC, MG, CMP #### [facility] [address] [place] [address] Neutrophils/100 leukocytes i n Blood by Automated countOrdered By: Elif Carroll on 11-13-2024 Neutrophils/100 WBC (Bld) 65.3 % Normal . [facility] Comment on above: Performed By: #### C BC, MG, CMP #### [facility] [address] [place] [address] No Panel InformationOrdered By: Elif Carroll on 11-13-2024 Estimated GFR (CKD-EPI) > 60.0 mL/Min [facility] Creatinine Clearance (Chem 60.92 [facility] Nucleated erythrocytes [Pres ence] in Blood by Automated countOrdered By: Elif Carroll on 11-13-2024 Nucleated RBC Auto Ql (Bld) 0.2 /100{WBC} 0-0.5 [facility] PET tumor subq tx strat sb-m ton 11-13-2024 PET tumor subq tx strat sb-mt [facility] Main [place] [address] [place] [address] Nuclear Medicine Report Signed Patient: Jeremie Bennett MR#: [id number] 669 : 1940 Acct:[id number] Age/Sex: 84 / M ADM Date: 11/23/24 Loc: Room: Type: [facility] Attending Dr: Talib Faustin MD Copies to: Mario Urias Jr, DO Becky K Demboske, [employer] Dennis Garcia MD Ordering Provider: Becky Ramos RAYSHAWN Crouch Date of Service: 11/13/24 PET/PET tumor subq [...] Jr., D.O. 11/13/2024 3:50 PM Dictation Location: [place] [address] Transcribed By: [facility] 11/13/24 1550 Dictated By: Mario Urias Jr, DO 11/13/24 1539 Signed By: 11/13/24 1550 Normal [facility] Platelet adequacy [Presence] in Blood by Light microscopyOrdered By: Elif Carroll on 11-13-2024 Platelets LM Ql (Bld) Normal Normal [facility] Platelet mean volume [Entiti c volume] in Blood by Automated countOrdered By: Elif Carroll on 11-13-2024 Platelet mean volume (Bld) [Entitic vol] 8.4 fL Normal 6.6-10.1 [facility] Comment on above: Performed By: #### C BC, MG, CMP #### [address] Platelet morphology finding [Identifier] in BloodOrdered By: Elif Carroll on 11-13-2024 Platelet morphology finding Nom (Bld) Normal Normal [facility] Platelets [#/volume] in Bloo d by Automated countOrdered By: Elif Carroll on 11-13-2024 Platelets (Bld) [#/Vol] 223 10*3/uL Normal 150-450 [facility] Comment on above: Performed By: #### C BC, MG, CMP #### [address] Potassium [Moles/volume] in Serum or PlasmaOrdered By: Elif Carroll on 11-13-2024 Potassium [Moles/Vol] 4.2 mmol/L Normal 3.5-5.1 [facility] Comment on above: Performed By: #### C BC, MG, CMP #### [address] Protein [Mass/volume] in Ser um or PlasmaOrdered By: Elif Carroll on 11-13-2024 Protein [Mass/Vol] 7.3 g/dL Normal 6.4-8.9 [facility] Comment on above: Performed By: #### C BC, MG, CMP #### [address] Scan and CBCon 11-13-2024 Mean Corpuscular HGB Conc 33.2 g/dL Normal 32.5-35.6 [facility] Comment on above: Performed By: #### C BC, MG, CMP #### [address] NRBC% 0.2 /100{WBC} Normal 0-0.5 [facility] Comment on above: Performed By: #### C BC, MG, CMP #### [address] Platelet Estimate Normal Normal Normal [facility] Comment on above: Performed By: #### C BC, MG, CMP #### [address] Platelet Morphology Normal Normal Normal [facility] Comment on above: Result Comment: PERF ORMED BY: [place] [address] PATHOLOGIST BRAID MAKER AD ROSENBAUM M.D. Performed By: #### C BC, MG, CMP #### [address] White Blood Count 8.5 [CFU]/mL Normal 4.1-10.5 [facility] Comment on above: Performed By: #### C BC, MG, CMP #### [address] Serum globulin measurement b y calculation (mass/volume)Ordered By: Elif Carroll on 11-13-2024 Globulin (S) [Mass/Vol] 3.1 g/dL [facility] Comment on above: Performed By: #### C BC, MG, CMP #### [address] Serum or plasma albumin/glob ulin mass ratioOrdered By: Elif Carroll on 11-13-2024 Albumin/Globulin [Mass ratio] 1.4 {ratio} [facility] Comment on above: Performed By: #### C BC, MG, CMP #### [address] Serum or plasma anion gap de terminationOrdered By: Elif Carroll on 11-13-2024 Anion gap [Moles/Vol] 10.6 mmol/L Normal 6.0-15.0 [facility] Comment on above: Performed By: #### C BC, MG, CMP #### [address] Sodium [Moles/volume] in Ser um or PlasmaOrdered By: Elif Carroll on 11-13-2024 Sodium [Moles/Vol] 137 mmol/L Normal 136-145 [facility] Comment on above: Performed By: #### C BC, MG, CMP #### [address] Urea nitrogen [Mass/volume] in Serum or PlasmaOrdered By: Elif Carroll on 11-13-2024 Urea nitrogen [Mass/Vol] 29 mg/dL High 7-25 [facility] Comment on above: Performed By: #### C BC, MG, CMP #### [facility] [address] Ambulatory Visit Summaryon 0 2024 Ambulatory [...] Film) fluticasone nasal (fluticasone Nasal 0.05 mg/inh [place]) furosemide (furosemide 20 mg Tab) irbesartan (irbesartan [...] Appointments Wednesday 2:30 PM EDT With: Where: [address] [address]- Wednesday 1:20 PM EDT With: Allison CASON, Demetrius Rosa Where: [address] [address]- Medications What How Much When Instructions Unchanged nystatin (nystatin 100,000 units/ mL Oral Susp) 4 Milliliter By Mouth 4 times a day Pickup at [facility] #25441 Unchanged albuterol (Albuterol (Eqv-ProAir HFA) 90 mcg/ [...] fluticasone nasal (fluticasone Nasal 0.05 mg/ inh [place]) See instructions USE 1 SPRAY IN BOTH [...] CAPSULE BY (more content not included)... Normal [facility] Family Medicine Office/Clini c Noteon 2024 [...] QID, # 112 mL, Refills(s) 1, Pharmacy: [facility] #[id number], 160, cm, 10/30/24 17:38:00 EDT, Height/Length Dosing, [...] to opioid therapy Coronary artery disease involving grand traverse coronary artery of grand traverse heart without angina pectoris Diabetic autonomic neuropathy [...] patch(es), Topical, q72hr fluticasone Nasal 0.05 mg/inh [place], See Instructions furosemide 20 mg Tab, 20 mg= 1 tab(s), Oral, Daily irbesartan 300 mg Tab, 300 mg= 1 tab(s), Oral, Daily isosorbide mononitrate, 30 mg, Oral, qAM latanoprost Opth 0.005% Janee metformin 500 mg ER T (more content not included)... Normal [facility] Comment on above: Result Comment: Elec tronically Signed By: Demetrius Cooper MD\.br\Date and Time Signed: 10/30/24 18:01 EDT Ambulatory Visit Summaryon 0 10-12-2024 Ambulatory Visit Summary Ambulatory Visit Summary GINNY JEREMIE Alanis :1940 Visit Date:10/12/2024 Ambulatory Visit Instructions Your [...] Film) fluticasone nasal (fluticasone Nasal 0.05 mg/inh [place]) furosemide (furosemide 20 mg Tab) irbesartan (irbesartan [...] Appointments Wednesday 2:30 PM EDT With: Where: [address] [address]- Wednesday 3:20 PM EDT With: Allison CASON, Demetrius Rosa Where: [place] [address]- Medications What How Much When Instructions Unchanged [...] fluticasone nasal (fluticasone Nasal 0.05 mg/ inh [place]) See instructions USE 1 SPRAY IN BOTH [...] to opioid therapy Coronary artery disease involving grand traverse coronary artery of grand traverse heart without angina pectoris Diabetic autonomic neuropathy associated with type 2 diabetes mellitus Diverticulosis FH: stomach can (more content not included)... Normal [facility] Ambulatory Visit Summary Ambulatory Visit Summary JEREMIE BENNETT :1940 Visit Date:10/12/2024 Ambulatory Visit Instructions Your Diagnosis Overweight (BMI 25.0-29.9) Former smoker Adult BMI 27.0-27.9 kg/sq m Your Care Team Attending Physician - Demetrius Cooper MD Primary Care Physician - Demetrius Cooper MD. [...] Film) fluticasone nasal (fluticasone Nasal 0.05 mg/inh [place]) furosemide (furosemide 20 mg Tab) irbesartan (irbesartan [...] Appointments Wednesday 2:30 PM EDT With: Where: [address] [address]- Wednesday 3:20 PM EDT With: Allison CASON, Demetrius Rosa Where: [address] [address]- Medications What How Much When Instructions Unchanged [...] fluticasone nasal (fluticasone Nasal 0.05 mg/ inh [place]) See instructions USE 1 SPRAY IN BOTH [...] to opioid therapy Coronary artery disease involving grand traverse coronary artery of grand traverse heart without angina pectoris Diabetic autonomic neuropathy associated with type 2 diabetes mellitus Diverticulosis FH: stomach cancer Former smoker GERD with apnea Gla (more content not included)... Normal [facility] Family Medicine Office/Clini c Noteon 10-12-2024 [...] to opioid therapy Coronary artery disease involving grand traverse coronary artery of grand traverse heart without angina pectoris Diabetic autonomic neuropathy [...] habits Procedure/Surgical (more content not included)... Normal [facility] Comment on above: Result Comment: Elec tronically Signed By: Allison CASON, Demetrius Rosa\.br\Date and Time Signed: 10/12/24 15:08 EDT Capillary blood glucose juan urement by glucometer (mass/volume)Ordered By: Veena Ross on 10-03-2024 Glucose [Mass/Vol] 103 mg/dL Normal [facility] Comment on above: Random Glucose Refer ence Range is dependent on time and content of last meal. Glucose of more than 200 mg/dL in a nonstressed, ambulatory subject supports the diagnosis of Diabetes Mellitus. Result Comment: [place] om Glucose Reference Range is dependent on time and content of last meal. Glucose of more than 200 mg/dL in a nonstressed, ambulatory subject supports the diagnosis of Diabetes Mellitus. Performed By: #### C BC, CMP, MG #### [facility] [address] GLUCOSE POCT GLUCOMETERSon 0 10-03-2024 COMMEMT1 Glu2: Cleaned Meter [facility] Glucose [Mass/Vol] 103 mg/dL [facility] Comment on above: Random Glucose Refer ence Range is dependent on time and content of last meal. Glucose of more than 200 mg/dL in a nonstressed, ambulatory subject supports the diagnosis of Diabetes Mellitus. [facility] Glucose Poct Glucometerson 0 10-03-2024 Commemt1 Glu2: Cleaned Meter Normal [facility] Comment on above: Result Comment: PERF ORMED BY: [facility] [address] [facility] [place] [address] PATHOLOGIST BRAID MAKER HEBER SHANNON M.D. Performed By: #### C BC, CMP, MG #### [facility] [address] No Panel InformationOrdered By: Veena Ross on 10-03-2024 Bedside Glucose Comment Glu2: cleaned meter [facility] Family Medicine Office/Clini c Noteon 09-28-2024 Family Medicine Office/Clinic Note Family Medicine Office/Clinic Note Chief Complaint ER follow up Abdominal pain and difficulty swallowing HPI Staff 2 week follow up to RUQ pain. Liver US ordered @ [facility]. Instructed to get done if pain worsens. Has since then gone to [facility] CC: abdominal pain & constipation States [...] day(s), # 140 mL, Refills(s) 0, Pharmacy: [facility] #[id number], 160, cm, 09/28/24 14:41:00 EDT, Height/Length Dosing, [...] oral thrush. I prescribed Nystatin in a cgyhb-avc-[id number] method to effectively address the thrush symptoms [...] to opioid therapy Coronary artery disease involving grand traverse coronary artery of grand traverse heart without angina pectoris Diabetic autonomic neuropathy associated with type 2 diabetes mellitus Diverticulo (more content not included)... Normal [facility] Comment on above: Result Comment: Elec tronically Signed By: Allison CASON, Demetrius Branham.marco a\Date and Time Signed: 09/28/24 15:12 EDT Alanine aminotransferase [En zymatic activity/volume] in Serum or PlasmaOrdered By: Maru Hayes on 09-20-2024 ALT [Catalytic activity/Vol] Alanine aminotransferase [Enzymatic activity/volume] in Serum or Plasma [facility] ALT [Catalytic activity/Vol] 9 U/L Normal [facility] Comment on above: Performed By: #### C BC, CMP, MG #### [facility] [address] Albumin [Mass/volume] in Ser um or Plasma by Bromocresol green (BCG) dye binding methoOrdered By: Maru Hayes on 09-20-2024 Albumin BCG dye [Mass/Vol] Albumin [Mass/volume] in Serum or Plasma by Bromocresol green (BCG) dye binding metho 3.5-5.7 [facility] Albumin BCG dye [Mass/Vol] 3.5 g/dL 3.5-5.7 [facility] Alkaline phosphatase [Enzyma tic activity/volume] in Serum or PlasmaOrdered By: Maru Hayes on 09-20-2024 ALP [Catalytic activity/Vol] Alkaline phosphatase [Enzymatic activity/volume] in Serum or Plasma 34-104 [facility] ALP [Catalytic activity/Vol] 81 U/L Normal [facility] Comment on above: Performed By: #### C BC, CMP, MG #### [facility] [address] [place] [address] Appearance of UrineOrdered B y: Maru Hayes on 09-20-2024 Appearance (U) Urine appearance Clear [facility] Appearance (U) Clear Normal Clear [facility] Comment on above: Order Comment: Name Collection Type:: Clean-Voided Midstream Performed By: #### C BC, MG, CMP #### [facility] [address] Aspartate aminotransferase [ Enzymatic activity/volume] in Serum or PlasmaOrdered By: Maru Hayes on 09-20-2024 AST [Catalytic activity/Vol] Aspartate aminotransferase [Enzymatic activity/volume] in Serum or Plasma 1339 [facility] AST [Catalytic activity/Vol] 14 U/L Normal [facility] Comment on above: Performed By: #### C BC, CMP, MG #### [facility] [address] [place] [id number] [facility] Basic Metabolic Panelon 05-0 7-2025 Creatinine Clr Calc Pharmacy 59.79 Normal [facility] Comment on above: Performed By: #### C BC, CMP, MG #### [address] GFR/1.73 sq M.predicted MDRD (S/P/Bld) [Vol rate/Area] mL/min/{1.73_m2} Normal [facility] Comment on above: Performed By: #### C BC, CMP, MG #### [address] Basophils Auto (Bld) [#/Vol] Ordered By: Maru Hayes on 09-20-2024 Basophils (Bld) [#/Vol] Automated basophil count 0.0-0.2 [facility] Basophils [#/volume] in Bloo d by Automated countOrdered By: Maru Hayes on 09-20-2024 Basophils (Bld) [#/Vol] 0.1 10*3/uL Normal 0.0-0.2 [facility] Comment on above: Result Comment: PERF ORMED BY: [place] [address] PATHOLOGIST BRAID MAKER HEBER SHANNON M.D. Performed By: #### C BC, CMP, MG #### [address] Basophils/100 WBC Auto (Bld) Ordered By: Maru Hayes on 09-20-2024 Basophils/100 WBC (Bld) Automated basophil % . [facility] Basophils/100 leukocytes in Blood by Automated countOrdered By: Maru Hayes on 09-20-2024 Basophils/100 WBC (Bld) 1.2 % Normal . [facility] Comment on above: Performed By: #### C BC, CMP, MG #### [address] Bilirubin Test strip Ql (U)O rdered By: Maru Hayes on 09-20-2024 Bilirubin Ql (U) Bilirubin.total [Presence] in Urine by Test strip Negative [facility] Bilirubin Ql (U) Negative Negative [facility] Bilirubin.direct [Mass/volum e] in Serum or PlasmaOrdered By: Maru Hayes on 09-20-2024 Bilirubin.direct [Mass/Vol] Bilirubin.direct [Mass/volume] in Serum or Plasma 0.03-0.18 [facility] Bilirubin.direct [Mass/Vol] 0.10 mg/dL 0.03-0.18 [facility] Bilirubin.total [Mass/volume ] in Serum or PlasmaOrdered By: Maru Hayes on 09-20-2024 Bilirubin [Mass/Vol] Bilirubin.total [Mass/volume] in Serum or Plasma 0.3-1.0 [facility] Bilirubin [Mass/Vol] 0.5 mg/dL Normal 0.3-1.0 [facility] Comment on above: Performed By: #### C BC, CMP, MG #### [address] abdomen pelvis w conon CT abdomen pelvis w con [facility] Main [place] [address] [place] [address] CT Scan Report Signed Patient: Jeremie Bennett MR#: [id number] 669 : 1940 Acct:[id number] Age/Sex: 83 / M ADM Date: 09/20/24 Loc: ER Room: Type: [facility] ER Attending Dr: Copies to: Maru [...] Gordon M.D. 09/20/2024 8:03 PM Dictation Location: [place] [address] Transcribed By: [facility] 09/20/242002 Dictated By: Rafi Gordon II, MD 09/20/241947 Signed By: 09/20/242002 Normal [facility] Calcium [Mass/volume] in Ser um or PlasmaOrdered By: Maru Hayes on 09-20-2024 Calcium [Mass/Vol] Calcium [Mass/volume ] in Serum or Plasma 8.6-10.3 [facility] Calcium [Mass/Vol] 9.5 mg/dL Normal 8.6-10.3 [facility] Comment on above: Performed By: #### C BC, CMP, MG #### [address] Carbon dioxide, total [Moles /volume] in Serum or PlasmaOrdered By: Maru Hayes on 09-20-2024 CO2 [Moles/Vol] Carbon dioxide, tota l [Moles/volume] in Serum or Plasma 21.0-31.0 [facility] CO2 [Moles/Vol] 26.8 mmol/L Normal 21.0-31.0 [facility] Comment on above: Performed By: #### C BC, CMP, MG #### [address] Chloride [Moles/volume] in S stephanie or PlasmaOrdered By: Maru Hayes on 09-20-2024 Chloride [Moles/Vol] Chloride [Moles/vol ume] in Serum or Plasma 98-107 [facility] Chloride [Moles/Vol] 104 mmol/L Normal 98-107 [facility] Comment on above: Performed By: #### C BC, CMP, MG #### [address] Color Auto (U)Ordered By: Ronald Hayes on 09-20-2024 Color (U) Color of Urine by Auto Yellow [facility] Color of Urine by AutoOrdere d By: Maru Hayes on 09-20-2024 Color (U) Light-yellow Normal Yellow [facility] Comment on above: Order Comment: Name Collection Type:: Clean-Voided Midstream Performed By: #### C BC, MG, CMP #### [address] Complete Blood Count Auto Di ffon 09-20-2024 Mean Corpuscular HGB Conc 33.3 g/dL Normal 32.5-35.6 [facility] Comment on above: Performed By: #### C BC, CMP, MG #### [address] Monocytes/100 WBC (Bld) 22.62 % High 0.00-20.00 [facility] Comment on above: Result Comment: For adults in ED, MDW > 20.0 may be associated with a higher risk of sepsis during the first 12 hrs of hospital admission Performed By: #### C BC, CMP, MG #### [address] NRBC% 0.0 /100{WBC} Normal 0-0.5 [facility] Comment on above: Performed By: #### C BC, CMP, MG #### [facility] [address] Creatinine [Mass/volume] in Serum or PlasmaOrdered By: Maru Hayes on 09-20-2024 Creatinine [Mass/Vol] Creatinine [Mass/v olume] in Serum or Plasma 0.70-1.30 [facility] Creatinine [Mass/Vol] 0.70 mg/dL Normal 0.70-1.30 [facility] Comment on above: Performed By: #### C BC, CMP, MG #### [facility] [address] ECG 12 lead ECGon 09-20-2024 ECG 12 lead ECG [facility] Main [place] [address] [place] [address] Electrocardiograph Report Signed Patient: Jeremie Bennett MR#: [id number] 669 : 1940 Acct:[id number] Age/Sex: 83 / M ADM Date: 09/20/24 Loc: ER Room: Type: [facility] ER Attending Dr: Ordering Provider: Maru [...] Abnormal ECG Confirmed by Maru Hayes MD ([id number]) on 09/20/2024 11:00:16 PM Referred By: Electronically Signed By: Maru Hayes MD Transcribed By: [facility] Signed By Maru Hayes MD 12/08 2300 Normal [facility] Eosinophils Auto (Bld) [#/Vo l]Ordered By: Maur Hayes on 09-20-2024 Eosinophils (Bld) [#/Vol] Automated eosinophil count 0.0-0.45 [facility] Eosinophils [#/volume] in Bl ood by Automated countOrdered By: Maru Hayes on 09-20-2024 Eosinophils (Bld) [#/Vol] 0.3 10*3/uL Normal 0.0-0.45 [facility] Comment on above: Performed By: #### C BC, CMP, MG #### [facility] [address] Eosinophils/100 WBC Auto (Bl d)Ordered By: Maru Hayes on 09-20-2024 Eosinophils/100 WBC (Bld) Automated eosinophil % . [facility] Eosinophils/100 leukocytes i n Blood by Automated countOrdered By: Maru Hayes on 09-20-2024 Eosinophils/100 WBC (Bld) 2.5 % Normal . [facility] Comment on above: Performed By: #### C BC, CMP, MG #### [facility] [address] Erythrocyte distribution wid th Auto (RBC) [Ratio]Ordered By: Maru Hayes on 09-20-2024 Erythrocyte distribution width (RBC) [Ratio] Erythrocyte distribution width [Ratio] by Automated count High 12.0-14.8 [facility] Erythrocyte distribution wid th [Ratio] by Automated countOrdered By: Maru Hayes on 09-20-2024 Erythrocyte distribution width (RBC) [Ratio] 15.9 % High 12.0-14.8 [facility] Comment on above: Performed By: #### C BC, CMP, MG #### [facility] [address] Erythrocytes [#/volume] in B lood by Automated countOrdered By: Maru Hayes on 09-20-2024 RBC (Bld) [#/Vol] 3.85 10*6/uL Low 3.90-5.60 [facility] Comment on above: Performed By: #### C BC, CMP, MG #### [address] Globulin Calc (S) [Mass/Vol] Ordered By: Maru Hayes on 09-20-2024 Globulin (S) [Mass/Vol] Serum globulin measurement by calculation (mass/volume) [facility] Glucose [Mass/volume] in Ser um or PlasmaOrdered By: Maru Hayes on 09-20-2024 Glucose [Mass/Vol] Glucose [Mass/volume ] in Serum or Plasma High 70-100 [facility] Comment on above: ADA recommended refe rence rangeRandom Glucose Reference Range is dependent on time and content of last meal. Glucose of more than 200 mg/dL in a nonstressed, ambulatory subject supports the diagnosis of Diabetes Mellitus. Glucose [Mass/Vol] 105 mg/dL High 70-100 [facility] Comment on above: ADA recommended refe rence rangeRandom Glucose Reference Range is dependent on time and content of last meal. Glucose of more than 200 mg/dL in a nonstressed, ambulatory subject supports the diagnosis of Diabetes Mellitus. Result Comment: [place] Glucose Reference Range is dependent on time and content of last meal. Glucose of more than 200 mg/dL in a nonstressed, ambulatory subject supports the diagnosis of Diabetes Mellitus. ADA recommended reference range Performed By: #### C BC, CMP, MG #### [facility] [address] Glucose [Mass/volume] in Uri ne by Test stripOrdered By: Maru Hayes on 09-20-2024 Glucose Test strip (U) [Mass/Vol] Glucose [Mass/volume] in Urine by Test strip Normal [facility] Glucose Test strip (U) [Mass/Vol] Normal mg/dL Normal [facility] Hematocrit Auto (Bld) [Volum e fraction]Ordered By: Maru Hayes on 09-20-2024 Hematocrit (Bld) [Volume fraction] Hematocrit [Volume Fraction] of Blood by Automated count Low 38.8-50.0 [facility] Hematocrit [Volume Fraction] of Blood by Automated countOrdered By: Maru Hayes on 09-20-2024 Hematocrit (Bld) [Volume fraction] 35.3 % Low 38.8-50.0 [facility] Comment on above: Performed By: #### C BC, CMP, MG #### [facility] [address] Hemoglobin Test strip Ql (U) Ordered By: Maru Hayes on 09-20-2024 Hemoglobin Ql (U) Hemoglobin [Presence ] in Urine by Test strip Negative [facility] Hemoglobin Ql (U) Negative Negative [facility] Hemoglobin [Mass/volume] in BloodOrdered By: Maru Hayes on 09-20-2024 Hemoglobin (Bld) [Mass/Vol] Hemoglobin [Mass/volume] in Blood Low 13.0-17.0 [facility] Hemoglobin (Bld) [Mass/Vol] 11.8 g/dL Low 13.0-17.0 [facility] Comment on above: Performed By: #### C BC, CMP, MG #### [facility] [address] Hepatic Panelon 09-20-2024 Albumin [Mass/Vol] 3.5 g/dL Normal 3.5-5.7 [facility] Comment on above: Performed By: #### C BC, CMP, MG #### [facility] [address] Bilirubin,Indirect 0.4 mg/dL Normal [facility] Comment on above: Performed By: #### C BC, CMP, MG #### [facility] [address] Bilirubin.indirect [Mass/Vol] 0.10 mg/dL Normal 0.03-0.18 [facility] Comment on above: Performed By: #### C BC, CMP, MG #### [facility] [address] Ketones Test strip Ql (U)Ord ered By: Maru Hayes on 09-20-2024 Ketones Ql (U) Ketones [Presence] i n Urine by Test strip Negative [facility] Ketones [Presence] in Urine by Test stripOrdered By: Maru Hayes on 09-20-2024 Ketones Ql (U) Negative Normal Negative [facility] Comment on above: Order Comment: Name Collection Type:: Clean-Voided Midstream Performed By: #### C BC, MG, CMP #### [facility] [address] Leukocyte esterase [Presence ] in Urine by Test stripOrdered By: Maru Hayes on 09-20-2024 Leukocyte esterase Test strip Ql (U) Leukocyte esterase [Presence] in Urine by Test strip Negative [facility] Leukocyte esterase Test strip Ql (U) Negative Normal Negative [facility] Comment on above: Order Comment: Name Collection Type:: Clean-Voided Midstream Performed By: #### C BC, MG, CMP #### [facility] [address] [place] [address] Leukocytes [#/volume] correc suzy for nucleated erythrocytes in Blood by Automated counOrdered By: Maru Hayes on 09-20-2024 WBC corrected for nucl RBC Auto (Bld) [#/Vol] Leukocytes [#/volume] corrected for nucleated erythrocytes in Blood by Automated coun High 4.1-10.5 [facility] WBC corrected for nucl RBC Auto (Bld) [#/Vol] 11.2 10*3/uL High 4.1-10.5 [facility] Leukocytes [#/volume] in Blo od by Automated countOrdered By: Maru Hayes on 09-20-2024 WBC (Bld) [#/Vol] 11.2 10*3/uL High 4.1-10.5 [facility] Comment on above: Performed By: #### C BC, CMP, MG #### [facility] [address] [place] [address] [place] Lipase [Enzymatic activity/v olume] in Serum or PlasmaOrdered By: Maru Hayes on 09-20-2024 Lipase [Catalytic activity/Vol] Lipase [Enzymatic activity/volume] in Serum or Plasma 11.0-82.0 [facility] Lipase [Catalytic activity/Vol] 34.0 U/L Normal 11.0-82.0 [facility] Comment on above: Result Comment: PERF ORMED BY: [place] [address] PATHOLOGIST BRAID MAKER HEBER SHANNON M.D. Performed By: #### C BC, CMP, MG #### [address] Lymphocytes Auto (Bld) [#/Vo l]Ordered By: Maru Hayes on 09-20-2024 Lymphocytes (Bld) [#/Vol] Lymphocytes [#/volume] in Blood by Automated count 1.00-4.8 [facility] Lymphocytes [#/volume] in Bl ood by Automated countOrdered By: Maru Hayes on 09-20-2024 Lymphocytes (Bld) [#/Vol] 2.8 10*3/uL Normal 1.00-4.8 [facility] Comment on above: Performed By: #### C BC, CMP, MG #### [facility] [address] Lymphocytes/100 WBC Auto (Bl d)Ordered By: Maru Hayes on 09-20-2024 Lymphocytes/100 WBC (Bld) Lymphocytes/100 leukocytes in Blood by Automated count . [facility] Lymphocytes/100 leukocytes i n Blood by Automated countOrdered By: Maru Hayes on 09-20-2024 Lymphocytes/100 WBC (Bld) 24.8 % Normal . [facility] Comment on above: Performed By: #### C BC, CMP, MG #### [facility] [address] MCH Auto (RBC) [Entitic mass ]Ordered By: Maru Hayes on 09-20-2024 MCH (RBC) [Entitic mass] MCH [Entitic mass] by Automated count 27.5-35.2 [facility] MCH [Entitic mass] by Automa suzy countOrdered By: Maru Hayes on 09-20-2024 MCH (RBC) [Entitic mass] 30.5 pg Normal 27.5-35.2 [facility] Comment on above: Performed By: #### C BC, CMP, MG #### [facility] [address] MCHC Auto (RBC) [Mass/Vol]Or dered By: Maru Hayes on 09-20-2024 MCHC (RBC) [Mass/Vol] MCHC [Mass/volume] by Automated count 32.5-35.6 [facility] MCHC (RBC) [Mass/Vol] 33.3 g/dL 32.5-35.6 [facility] MCV Auto (RBC) [Entitic vol] Ordered By: Maru Hayes on 09-20-2024 MCV (RBC) [Entitic vol] MCV [Entitic volume] by Automated count 83.5-101 [facility] MCV [Entitic volume] by Auto mated countOrdered By: Maru Hayes on 09-20-2024 MCV (RBC) [Entitic vol] 91.7 fL Normal 83.5-101 [facility] Comment on above: Performed By: #### C FREDDY, CMP, MG #### [facility] [address] Monocyte distribution width [Entitic volume] in Blood by AutomatedOrdered By: Maru Hayes on 09-20-2024 Monocyte distribution width Auto (Bld) [Entitic vol] Monocyte distribution width [Entitic volume] in Blood by Automated High 0.00-20.00 [facility] Comment on above: For adults in ED, MD W > 20.0 may be associated with a higher risk of sepsis during the first 12 hrs of hospital admission Monocyte distribution width Auto (Bld) [Entitic vol] 22.62 % High 0.00-20.00 [facility] Comment on above: For adults in ED, MD W > 20.0 may be associated with a higher risk of sepsis during the first 12 hrs of hospital admission Monocytes Auto (Bld) [#/Vol] Ordered By: Maru Hayes on 09-20-2024 Monocytes (Bld) [#/Vol] Automated blood monocyte count 0.0-0.8 [facility] Monocytes [#/volume] in Bloo d by Automated countOrdered By: Maru Hayes on 09-20-2024 Monocytes (Bld) [#/Vol] 0.8 10*3/uL Normal 0.0-0.8 [facility] Comment on above: Performed By: #### C FREDDY, CMP, MG #### [facility] [address] [place] [address] [place] Monocytes/100 WBC Auto (Bld) Ordered By: Maru Hayes on 09-20-2024 Monocytes/100 WBC (Bld) Automated monocyte % . [facility] Monocytes/100 leukocytes in Blood by Automated countOrdered By: Maru Hayes on 09-20-2024 Monocytes/100 WBC (Bld) 7.2 % Normal . [facility] Comment on above: Performed By: #### C BC, CMP, MG #### [facility] [address] [place] [address] [place] Neutrophils Auto (Bld) [#/Vo l]Ordered By: Maru Hayes on 09-20-2024 Neutrophils (Bld) [#/Vol] Neutrophils [#/volume] in Blood by Automated count 1.8-7.7 [facility] Neutrophils [#/volume] in Bl ood by Automated countOrdered By: Maru Hayes on 09-20-2024 Neutrophils (Bld) [#/Vol] 7.2 10*3/uL Normal 1.8-7.7 [facility] Comment on above: Performed By: #### C BC, CMP, MG #### [facility] [address] [place] [address] [place] Neutrophils/100 WBC Auto (Bl d)Ordered By: Maru Hayes on 09-20-2024 Neutrophils/100 WBC (Bld) Automated neutrophil % . [facility] Neutrophils/100 leukocytes i n Blood by Automated countOrdered By: Maru Hayes on 09-20-2024 Neutrophils/100 WBC (Bld) 64.3 % Normal . [facility] Comment on above: Performed By: #### C BC, CMP, MG #### [facility] [address] [place] [address] Nitrite Test strip Ql (U)Ord ered By: Maru Hayes on 09-20-2024 Nitrite Ql (U) Nitrite [Presence] i n Urine by Test strip Negative [facility] Nitrite Ql (U) Negative Negative [facility] No Panel InformationOrdered By: Maru Hayes on 09-20-2024 Estimated GFR (CKD-EPI) > 60.0 mL/Min [facility] Creatinine Clearance (Chem 59.79 [facility] Nucleated erythrocytes [Pres ence] in Blood by Automated countOrdered By: Maru Hayes on 09-20-2024 Nucleated RBC Auto Ql (Bld) Nucleated erythrocytes [Presence] in Blood by Automated count 0-0.5 [facility] Nucleated RBC Auto Ql (Bld) 0.0 /100{WBC} 0-0.5 [facility] Platelet mean volume Auto (B ld) [Entitic vol]Ordered By: Maru Hayes on 09-20-2024 Platelet mean volume (Bld) [Entitic vol] Platelet mean volume [Entitic volume] in Blood by Automated count 6.6-10.1 [facility] Platelet mean volume [Entiti c volume] in Blood by Automated countOrdered By: Maru Hayes on 09-20-2024 Platelet mean volume (Bld) [Entitic vol] 8.3 fL Normal 6.6-10.1 [facility] Comment on above: Performed By: #### C BC, CMP, MG #### [facility] [address] Platelets Auto (Bld) [#/Vol] Ordered By: Maru Hayes on 09-20-2024 Platelets (Bld) [#/Vol] Platelets [#/volume] in Blood by Automated count 150-450 [facility] Platelets [#/volume] in Bloo d by Automated countOrdered By: Maru Hayes on 09-20-2024 Platelets (Bld) [#/Vol] 226 10*3/uL Normal 150-450 [facility] Comment on above: Performed By: #### C BC, CMP, MG #### [facility] [address] 09-21-19 [facility] Case Information Case Priority: None Programs: -- Referral Source: Direct Support Worker Referral Reason: Care coordination Case Type: Transition [...] to opioid therapy Coronary artery disease involving grand traverse coronary artery of grand traverse heart without angina pectoris Diabetic autonomic neuropathy [...] patch(es), Topical, q72hr fluticasone Nasal 0.05 mg/inh [place], See Instructions furosemide 20 mg Tab, 20 [...] 09/14, but he has not heard from [facility], a message sent to clinical for f/u. Patient denies any further questions or concerns. Communication Events Date: September 20, 2024 Method: Phone call Type: Outbound Duration (min): 3 Outcome: Case discussion Contact Type: Patient Contact Name: B (more content not included)... Normal [facility] Potassium [Moles/volume] in Serum or PlasmaOrdered By: Maru Hayes on 09-20-2024 Potassium [Moles/Vol] Potassium [Moles/v olume] in Serum or Plasma 3.5-5.1 [facility] Potassium [Moles/Vol] 4.0 mmol/L Normal 3.5-5.1 [facility] Comment on above: Performed By: #### C BC, CMP, MG #### [address] Protein Test strip (U) [Mass /Vol]Ordered By: Maru Hayes on 09-20-2024 Protein (U) [Mass/Vol] Protein [Mass/vol ume] in Urine by Test strip Negative [facility] Protein (U) [Mass/Vol] Negative Negative [facility] Protein [Mass/volume] in Ser um or PlasmaOrdered By: Maru Hayes on 09-20-2024 Protein [Mass/Vol] Protein [Mass/volume ] in Serum or Plasma 6.4-8.9 [facility] Protein [Mass/Vol] 6.4 g/dL Normal 6.4-8.9 [facility] Comment on above: Performed By: #### C RAZIA HAYES, MG #### [address] RBC Auto (Bld) [#/Vol]Ordere d By: Maru Hayes on 09-20-2024 RBC (Bld) [#/Vol] Erythrocytes [#/volu me] in Blood by Automated count Low 3.90-5.60 [facility] Serum globulin measurement b y calculation (mass/volume)Ordered By: Maru Hayes on 09-20-2024 Globulin (S) [Mass/Vol] 2.9 g/dL Normal [facility] Comment on above: Performed By: #### C FREDDY, CMP, MG #### [address] Serum or plasma albumin/glob ulin mass ratioOrdered By: Maru Hayes on 09-20-2024 Albumin/Globulin [Mass ratio] Serum or plasma albumin/globulin mass ratio [facility] Albumin/Globulin [Mass ratio] 1.2 {ratio} Normal [facility] Comment on above: Performed By: #### C FREDDY, CMP, MG #### [facility] [address] Serum or plasma anion gap de terminationOrdered By: Maru Hayes on 09-20-2024 Anion gap [Moles/Vol] Serum or plasma an ion gap determination 6.0-15.0 [facility] Anion gap [Moles/Vol] 10.2 mmol/L Normal 6.0-15.0 [facility] Comment on above: Performed By: #### C BC, CMP, MG #### [facility] [address] Serum or plasma non-glucuron idated bilirubin measurement (mass/volume)Ordered By: Maru Hayes on 09-20-2024 Bilirubin.indirect [Mass/Vol] Serum or plasma non-glucuronidated bilirubin measurement (mass/volume) [facility] Bilirubin.indirect [Mass/Vol] 0.4 mg/dL [facility] Sodium [Moles/volume] in Ser um or PlasmaOrdered By: Maru Hayes on 09-20-2024 Sodium [Moles/Vol] Sodium [Moles/volume ] in Serum or Plasma 136-145 [facility] Sodium [Moles/Vol] 137 mmol/L Normal 136-145 [facility] Comment on above: Performed By: #### C FREDDY, CMP, MG #### [facility] [address] Specific gravity Test strip (U) [Rel density]Ordered By: Maru Hayes on 09-20-2024 Specific gravity (U) [Rel density] Specific gravity of Urine by Test strip High 1.001-1.03 0 [facility] Specific gravity (U) [Rel density] 1.039 High 1.001-1.03 0 [facility] Troponin I High Sensitivityo n 09-20-2024 Troponin I High Sensitivity 7 Normal 0-20 [facility] Comment on above: Result Comment: The Troponin units of report have been changed to meet the Chest Pain Accreditation requirement, element EC5.M1l2. Troponin units are changed from pg/ml to ng/L. Also, the decimal is removed and results are in whole numbers. PERFORMED BY: [facility] [address] [place] [address] PATHOLOGIST BRAID MAKER HEBER SHANNON M.D. Performed By: #### C BC, CMP, MG #### [facility] [address] Troponin I.cardiac [Mass/vol ume] in Serum or Plasma by Detection limit <= 0.01 ng/Ordered By: Maru Hayes on 09-20-2024 Troponin I.cardiac DL <= 0.01 ng/mL [Mass/Vol] Troponin I.cardiac [Mass/volume] in Serum or Plasma by Detection limit <= 0.01 ng/ 0 [facility] Comment on above: The Troponin [...] DL <= 0.01 ng/mL [Mass/Vol] 7 ng/L [facility] Comment on above: The Troponin [...] nitrogen [Mass/volume] in Serum or Plasma 12-08 [facility] Urea nitrogen [Mass/Vol] 20 mg/dL Normal 12-08 [facility] Comment on above: Performed By: #### C BC, CMP, MG #### [facility] [address] [place] [id number] [facility] Urinalysison 09-20-2024 Bilirubin,Urine Negative Normal Negative [facility] Comment on above: Order Comment: Name Collection Type:: Clean-Voided Midstream Performed By: #### C BC, MG, CMP #### [address] Glucose Ql (U) Normal Normal Normal [facility] Comment on above: Order Comment: Name Collection Type:: Clean-Voided Midstream Performed By: #### C BC, MG, CMP #### [facility] [address] Nitrite,Urine Negative Normal Negative [facility] Comment on above: Order Comment: Name Collection Type:: Clean-Voided Midstream Performed By: #### C BC, MG, CMP #### [address] Occult Blood,Urine Negative Normal Negative [facility] Comment on above: Order Comment: Name Collection Type:: Clean-Voided Midstream Result Comment: PERF ORMED BY: [place] [address] PATHOLOGIST BRAID MAKER HEBER SHANNON M.D. Performed By: #### C BC, MG, CMP #### [address] Protein,Urine Negative Normal Negative [facility] Comment on above: Order Comment: Name Collection Type:: Clean-Voided Midstream Performed By: #### C BC, MG, CMP #### [address] Specificy [place],Urine 1.039 High 1.001-1.03 0 [facility] Comment on above: Order Comment: Name Collection Type:: Clean-Voided Midstream Performed By: #### C BC, MG, CMP #### [address] Urobilinogen,Urine Normal Normal Normal [facility] Comment on above: Order Comment: Name Collection Type:: Clean-Voided Midstream Performed By: #### C BC, MG, CMP #### [address] Urobilinogen Test strip (U) [Mass/Vol]Ordered By: Maru Hayes on 09-20-2024 Urobilinogen (U) [Mass/Vol] Urobilinogen [Mass/volume] in Urine by Test strip Normal [facility] Urobilinogen (U) [Mass/Vol] Normal mg/dL Normal [facility] WBC Auto (Bld) [#/Vol]Ordere d By: Maru Hayes on 09-20-2024 WBC (Bld) [#/Vol] Leukocytes [#/volume ] in Blood by Automated count High 4.1-10.5 [facility] pH Test strip (U)Ordered By: Maru Hayes on 09-20-2024 pH (U) pH of Urine by Test strip 5.0-9.0 [facility] pH of Urine by Test stripOrd ered By: Maru Hayes on 09-20-2024 pH (U) 5.0 [pH] Normal 5.0-9.0 [facility] Comment on above: Order Comment: Name Collection Type:: Clean-Voided Midstream Performed By: #### C BC, MG, CMP #### [address] Ambulatory Visit Summaryon 0 09-14-2024 Ambulatory [...] Film) fluticasone nasal (fluticasone Nasal 0.05 mg/inh [place]) furosemide (furosemide 20 mg Tab) irbesartan (irbesartan [...] What to do next Scheduled Follow-Up Appointments 2024 2:40 PM EDT With: Demetrius Cooper MD Where: [address] [id number]- Wednesday 2:30 PM EDT With: Where: [address] [id number]- Wednesday 3:20 PM EDT With: Demetrius Cooper MD Where: [address] [id number]- Medications What How Much When Instructions Unchanged [...] fluticasone nasal (fluticasone Nasal 0.05 mg/ inh [place]) See instructions USE 1 SPRAY IN BOTH [...] Cervic (more content not included)... Normal [facility] Medicine Office/Clini c Noteon 09-14-2024 Family Medicine [...] to opioid therapy Coronary artery disease involving grand traverse coronary artery of grand traverse heart without angina pectoris Diabetic autonomic neuropathy [...] Cholecystectomy, Co (more content not included)... Normal [facility] Comment on above: Result Comment: Elec tronically Signed By: Demetrius Cooper MD\.br\Date and Time Signed: 09/14/24 07:51 EDT [facility] 09-08-19 [facility] Case Information Case Priority: None Programs: -- Referral Source: Direct Support Worker Referral Reason: Care coordination Case Type: Transition [...] to opioid therapy Coronary artery disease involving grand traverse coronary artery of grand traverse heart without angina pectoris Diabetic autonomic neuropathy [...] patch(es), Topical, q72hr fluticasone Nasal 0.05 mg/inh [place], See Instructions furosemide 20 mg Tab, 20 [...] mg= 1 tab(s), Oral, Daily Potassium Chloride ([id number]-Vgh M20) 20 mEq oral tablet, extended release [...] magic peggy (more content not included)... Normal [facility] C Urineon 09-01-2024 Bacteria identified Cx [...] Locations R1: This test was performed at: [facility], [address] [place] [address], [address]- , [place], Normal [facility] Comment on above: Performed By: #### 2 [id number] #### [facility] [address] [place] [id number] Ambulatory Visit Summaryon 0 08-30-2024 Ambulatory Visit Summary Ambulatory Visit Summary JEREMIE BENNETT :1940 Visit Date:08/30/2024 Ambulatory Visit Instructions Your Diagnosis Abdominal pain Urinary hesitancy Your Care Team Attending Physician - Yajaira Dunn Primary Care Physician - Allison CASON, Demetrius [...] Film) fluticasone nasal (fluticasone Nasal 0.05 mg/inh [place]) furosemide (furosemide 20 mg Tab) irbesartan (irbesartan [...] mL oral solution) potassium chloride (Potassium Chloride (Wse-Fqqj-Nrc M20) 20 mEq oral tablet, extended release) [...] Appointments Wednesday 2:30 PM EDT With: Where: [address] [address]- Wednesday 3:20 PM EDT With: Allison CASON, Demetrius Rosa Where: [address] [address]- Medications What How Much When Instructions Unchanged [...] fluticasone nasal (fluticasone Nasal 0.05 mg/ inh [place]) See instructions USE 1 SPRAY IN BOTH [...] ondansetron (onda (more content not included)... Normal [facility] Family Medicine Office/Clini c Noteon 08-30-2024 [...] Urnls Dip Stick Auto w/o Microscopy POC 25071 2. Urinary hesitancy (R39.11: Hesitancy of micturition) [...] to opioid therapy Coronary artery disease involving grand traverse coronary artery of grand traverse heart without angina pectoris Diabetic autonomic neuropathy [...] patch(es), Topical, q72hr fluticasone Nasal 0.05 mg/inh [place], See Instructions furosemide 20 mg Tab, 20 [...] Chloride (Eq (more content not included)... Normal [facility] Comment on above: Result Comment: Elec tronically Signed By: Yajaira Dunn\.br\Date and Time Signed: 08/30/24 10:45 EDT Family Medicine Office/Clini c Noteon 08-24-2024 Family Medicine Office/Clinic Note Family Medicine Office/Clinic Note Chief Complaint TCM follow up The patient presents with concerns related to chemotherapy and radiation treatment for oropharyngeal carcinoma. HPI Staff Pt presents today for TCM follow up [facility] [place] date: 08/19/24 Symptoms the patient presented [...] TCM Trans care mgmt 7 day disch [id number] 2. Aspiration pneumonia (J69.0: Pneumonitis due to inhalation of food and vomit) Patient improved after antibiotic treatment for aspiration pneumonia. Monitor respiratory status and nutritional challenges affecting swallowing. Ordered: Cardiac Rehab - Ambulatory Referral TCM Trans care mgmt 7 day disch [id number] 3. 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 Plan imaging for therapy assessment within three months. Focus on resolving sore throat impacting nutrition. Ordered: Cardiac Rehab - Ambulatory Referral TCM Trans care mgmt 7 day disch [id number] 4. 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 Schedule appropriate follow-up tests to monitor oncologic treatment outcomes. Ordered: Cardiac Rehab - Ambulatory Referral TCM Trans care mgmt 7 day disch [id number] 5. Immunosuppression (D84.9: Immunodeficiency, unspecified) Continue to see oncology Ordered: Cardiac Rehab - Ambulatory Referral TCM Trans care mgmt 7 day disch [id number] 6. 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 Evaluate non-opioid pain relief methods if feasible. Ordered: TCM Trans care mgmt 7 day disch [id number] 7. Nausea (R11.0: Nausea) NO issues at this time. Ordered: TCM Trans care mgmt 7 day disch [id number] 8. BMI 27.0-27.9,adult (Z68.27: Body mass index [BMI] 27.0-27.9, adult) BMI education adde (more content not included)... Normal [facility] Comment on above: Result Comment: Elec tronically Signed By: Demetrius Cooper MD\.br\Date and Time Signed: 08/24/24 09:00 EDT Pre-Visit Planningon 025 Pre-Visit Planning Pre-Visit Planning From: Bobbi Hall To: Demetrius Cooper MD; Sent: 08/23/2024 16:27:25 EDT Subject: Pre-Visit Planning Due Date/Time: 08/23/2024 16:27:00 EDT Caller Name: GINNY JEREMIE Annabelle; Caller Number: , Vt Dr. Cooper. During a pre-visit planning chart [...] feel free to contact me at extension [phone]. Thank you! Bobbi Hall LPN Clinical Integration Consultant [address] [address] Extension: [phone] [email or web address] From: Demetrius Cooper MD To: Bobbi Hall; Sent: 08/24/2024 11:34:18 EDT Subject: RE: Pre-Visit Planning Caller Name: JEREMIE BENNETT; Caller Number: Jane , M Please add Normal [facility] Population Health 08-23-19 [facility] Health Case Information Case Priority: None Programs: -- Referral Source: Direct Support Worker Referral Reason: Care coordination Case Type: Transition Care Management Risk Score: -- Case Status: Enrolled (August 22, 2024) Date Assigned: August 22, 2024 Assigned By: Galileo Tucker Date Enrolled: August 22, 2024 Assigned Primary Personnel: Galileo Tucker Assigned Secondary Personnel: -- Case Physician: Demetrius Cooper MD Problems Ongoing Bloating BMI 29.0-29.9,adult Cervical lymphadenopathy Cervical spondylosis Chronic GERD Coronary artery disease involving grand traverse coronary artery of grand traverse heart without angina pectoris Diabetic autonomic neuropathy [...] patch(es), Topical, q72hr fluticasone Nasal 0.05 mg/inh [place], See Instructions furosemide 20 mg Tab, 20 [...] Care Plan Progress Note Admit Date: 08[place]20/24 [facility] [place] of Discharge: 08/21/24 Follow-up appointment scheduled? yes, Dr. Cooper [facility] f/u 08/24/24 at 0745 Did [...] swallow Ar (more content not included)... Normal [facility] Alanine aminotransferase [En zymatic activity/volume] in Serum or PlasmaOrdered By: Jaiden Nance on 08-21-2024 ALT [Catalytic activity/Vol] Alanine aminotransferase [Enzymatic activity/volume] in Serum or Plasma [facility] Albumin [Mass/volume] in Ser um or Plasma by Bromocresol green (BCG) dye binding methoOrdered By: Jaiden Nance on 08-21-2024 Albumin BCG dye [Mass/Vol] Albumin [Mass/volume] in Serum or Plasma by Bromocresol green (BCG) dye binding metho Low 3.5-5.7 [facility] Alkaline phosphatase [Enzyma tic activity/volume] in Serum or PlasmaOrdered By: Jaiden Nance on 08-21-2024 ALP [Catalytic activity/Vol] Alkaline phosphatase [Enzymatic activity/volume] in Serum or Plasma 34-104 [facility] Aspartate aminotransferase [ Enzymatic activity/volume] in Serum or PlasmaOrdered By: Jaiden Nance on 08-21-2024 AST [Catalytic activity/Vol] Aspartate aminotransferase [Enzymatic activity/volume] in Serum or Plasma 13-39 [facility] Basophils Auto (Bld) [#/Vol] Ordered By: Jaiden Nance on 08-21-2024 Basophils (Bld) [#/Vol] Automated basophil count 0.0-0.2 [facility] Basophils/100 WBC Auto (Bld) Ordered By: Jaiden Nance on 08-21-2024 Basophils/100 WBC (Bld) Automated basophil % . [facility] Bilirubin.total [Mass/volume ] in Serum or PlasmaOrdered By: Jaiden Nance on 08-21-2024 Bilirubin [Mass/Vol] Bilirubin.total [Mass/volume] in Serum or Plasma 0.3-1.[address] [facility] [address] chest wo conon 08-21-2024 CT chest wo con [facility] [place] [address] CT Scan Report Signed Patient: Jeremie Bennett MR#: [id number] : 1940 Acct:[id number] Age/Sex: 83 / M ADM Date: 08/20/24 Loc: Room: [address] [place] [address] Type: ADM IN Attending Dr: Jaiden Nance [...] Christian Melton M.D.08/21/2024 5:58 AM Dictation Location: [place] [address] Transcribed By: [facility] 08/21/24 0558 Dictated By: Christian Melton DO 08/21/24 0555 Signed By: 08/21/24 0558 Normal [facility] Calcium [Mass/volume] in Ser um or PlasmaOrdered By: Jaiden Nance on 08-21-2024 Calcium [Mass/Vol] Calcium [Mass/volume ] in Serum or Plasma Low 8.6-10.3 [facility] Carbon dioxide, total [Moles /volume] in Serum or PlasmaOrdered By: Jaiden Nance on 08-21-2024 CO2 [Moles/Vol] Carbon dioxide, tota l [Moles/volume] in Serum or Plasma 21.0-31.0 [facility] Chloride [Moles/volume] in S stephanie or PlasmaOrdered By: Jaiden Nance on 08-21-2024 Chloride [Moles/Vol] Chloride [Moles/vol ume] in Serum or Plasma High 98-107 [facility] Complete Blood Count Auto Di ffon 08-21-2024 Basophils (Bld) [#/Vol] 0.0 10*3/uL Normal 0.0-0.2 [facility] Comment on above: Result Comment: PERF ORMED BY: [facility] [address] [place] [address] PATHOLOGIST BRAID MAKER MOHAMED M EL-FAKHARANY M.D. Performed By: #### C BC, MG, CMP #### [facility] [address] [place] [address] [place] Basophils/100 WBC (Bld) 0.6 % Normal . [facility] Comment on above: Performed By: #### C BC, MG, CMP #### [facility] [address] Eosinophils (Bld) [#/Vol] 0.1 10*3/uL Normal 0.0-0.45 [facility] Comment on above: Performed By: #### C BC, MG, CMP #### [facility] [address] [place] [address] [place] Eosinophils/100 WBC (Bld) 1.0 % Normal . [facility] Comment on above: Performed By: #### C BC, MG, CMP #### [address] Erythrocyte distribution width (RBC) [Ratio] 14.8 % Normal 12.0-14.8 [facility] Comment on above: Performed By: #### C BC, MG, CMP #### [place] [address] [place] Hematocrit (Bld) [Volume fraction] 30.5 % Low 38.8-50.0 [facility] Comment on above: Performed By: #### C BC, MG, CMP #### [place] [address] [place] Hemoglobin (Bld) [Mass/Vol] 10.4 g/dL Low 13.0-17.0 [facility] Comment on above: Performed By: #### C BC, MG, CMP #### [facility] [address] [place] [address] [place] Lymphocytes (Bld) [#/Vol] 0.6 10*3/uL Low 1.00-4.8 [facility] Comment on above: Performed By: #### C BC, MG, CMP #### [facility] [address] [place] [address] [place] Lymphocytes/100 WBC (Bld) 9.0 % Normal . [facility] Comment on above: Performed By: #### C BC, MG, CMP #### [address] MCH (RBC) [Entitic mass] 31.3 pg Normal 27.5-35.2 [facility] Comment on above: Performed By: #### C BC, MG, CMP #### [address] MCV (RBC) [Entitic vol] 91.6 fL Normal 83.5-101 [facility] Comment on above: Performed By: #### C BC, MG, CMP #### [address] Mean Corpuscular HGB Conc 34.2 g/dL Normal 32.5-35.6 [facility] Comment on above: Performed By: #### C BC, MG, CMP #### [address] Monocytes (Bld) [#/Vol] 0.8 10*3/uL Normal 0.0-0.8 [facility] Comment on above: Performed By: #### C BC, MG, CMP #### [address] Monocytes/100 WBC (Bld) 13.6 % Normal . [facility] Comment on above: Performed By: #### C BC, MG, CMP #### [address] Neutrophils (Bld) [#/Vol] 4.7 10*3/uL Normal 1.8-7.7 [facility] Comment on above: Performed By: #### C BC, MG, CMP #### [address] Neutrophils/100 WBC (Bld) 75.8 % Normal . [facility] Comment on above: Performed By: #### C BC, MG, CMP #### [address] NRBC% 0.1 /100{WBC} Normal 0-0.5 [facility] Comment on above: Performed By: #### C BC, MG, CMP #### [address] Platelet mean volume (Bld) [Entitic vol] 8.2 fL Normal 6.6-10.1 [facility] Comment on above: Performed By: #### C BC, MG, CMP #### [address] Platelets (Bld) [#/Vol] 190 10*3/uL Normal 150-450 [facility] Comment on above: Performed By: #### C BC, MG, CMP #### [address] RBC (Bld) [#/Vol] 3.33 10*6/uL Low 3.90-5.60 [facility] Comment on above: Performed By: #### C BC, MG, CMP #### [address] WBC (Bld) [#/Vol] 6.2 10*3/uL Normal 4.1-10.5 [facility] Comment on above: Performed By: #### C BC, MG, CMP #### [address] Comprehensive Metabolic Pane obdulio 08-21-2024 Albumin [Mass/Vol] 2.9 g/dL Low 3.5-5.7 [facility] Comment on above: Performed By: #### C BC, MG, CMP #### [address] Albumin/Globulin [Mass ratio] 1.2 {ratio} Normal [facility] Comment on above: Performed By: #### C BC, MG, CMP #### [address] ALP [Catalytic activity/Vol] 52 U/L Normal 34-104 [facility] Comment on above: Performed By: #### C BC, MG, CMP #### [address] ALT [Catalytic activity/Vol] 14 U/L Normal 7-52 [facility] Comment on above: Performed By: #### C BC, MG, CMP #### [facility] [address] Anion gap [Moles/Vol] 9.1 mmol/L Normal 6.0-15.0 [facility] Comment on above: Performed By: #### C BC, MG, CMP #### [address] AST [Catalytic activity/Vol] 15 U/L Normal 13-39 [facility] Comment on above: Performed By: #### C BC, MG, CMP #### [address] Bilirubin [Mass/Vol] 0.6 mg/dL Normal 0.3-1.0 [facility] Comment on above: Performed By: #### C BC, MG, CMP #### [address] Calcium [Mass/Vol] 8.2 mg/dL Low 8.6-10.3 [facility] Comment on above: Performed By: #### C BC, MG, CMP #### [address] Chloride [Moles/Vol] 108 mmol/L High 98-107 [facility] Comment on above: Performed By: #### C BC, MG, CMP #### [address] CO2 [Moles/Vol] 24.2 mmol/L Normal 21.0-31.0 [facility] Comment on above: Performed By: #### C BC, MG, CMP #### [address] Creatinine [Mass/Vol] 0.75 mg/dL Normal 0.70-1.30 [facility] Comment on above: Performed By: #### C BC, MG, CMP #### [address] Creatinine Clr Calc Pharmacy 59.79 Normal [facility] Comment on above: Performed By: #### C BC, MG, CMP #### [facility] [address] [place] [address] [place] GFR/1.73 sq M.predicted MDRD (S/P/Bld) [Vol rate/Area] mL/min/{1.73_m2} Normal [facility] Comment on above: Performed By: #### C BC, MG, CMP #### [facility] [address] Globulin (S) [Mass/Vol] 2.4 g/dL Normal [facility] Comment on above: Performed By: #### C BC, MG, CMP #### [facility] [address] Glucose [Mass/Vol] 94 mg/dL Normal 70-100 [facility] Comment on above: Result Comment: [facility] Glucose Reference Range is dependent on time and content of last meal. Glucose of more than 200 mg/dL in a nonstressed, ambulatory subject supports the diagnosis of Diabetes Mellitus. ADA recommended reference range Performed By: #### C BC, MG, CMP #### [address] Potassium [Moles/Vol] 3.3 mmol/L Low 3.5-5.1 [facility] Comment on above: Performed By: #### C BC, MG, CMP #### [facility] [address] Protein [Mass/Vol] 5.3 g/dL Low 6.4-8.9 [facility] Comment on above: Performed By: #### C BC, MG, CMP #### [facility] [address] [place] [address] [place] Sodium [Moles/Vol] 138 mmol/L Normal 136-145 [facility] Comment on above: Performed By: #### C BC, MG, CMP #### [facility] [address] Urea nitrogen [Mass/Vol] 10 mg/dL Normal 7-25 [facility] Comment on above: Performed By: #### C BC, MG, CMP #### [facility] [address] Creatinine [Mass/volume] in Serum or PlasmaOrdered By: Jaiden Nance on 08-21-2024 Creatinine [Mass/Vol] Creatinine [Mass/v olume] in Serum or Plasma 0.70-1.30 [facility] Eosinophils Auto (Bld) [#/Vo l]Ordered By: Jaiden Nance on 08-21-2024 Eosinophils (Bld) [#/Vol] Automated eosinophil count 0.0-0.45 [facility] Eosinophils/100 WBC Auto (Bl d)Ordered By: Jaiden Nance on 08-21-2024 Eosinophils/100 WBC (Bld) Automated eosinophil % . [facility] Erythrocyte distribution wid th Auto (RBC) [Ratio]Ordered By: Jaiden Nance on 08-21-2024 Erythrocyte distribution width (RBC) [Ratio] Erythrocyte distribution width [Ratio] by Automated count 12.0-14.8 [facility] Globulin Calc (S) [Mass/Vol] Ordered By: Jaiden Nance on 08-21-2024 Globulin (S) [Mass/Vol] Serum globulin measurement by calculation (mass/volume) [facility] Glucose [Mass/volume] in Ser um or PlasmaOrdered By: Jaiden Nance on 08-21-2024 Glucose [Mass/Vol] Glucose [Mass/volume ] in Serum or Plasma 70-100 [facility] Comment on above: ADA recommended [...] of Blood by Automated count Low 38.8-50.0 [facility] Hemoglobin [Mass/volume] in BloodOrdered By: Jaiden Nance 08-21-2024 Hemoglobin (Bld) [Mass/Vol] Hemoglobin [Mass/volume] in Blood Low 13.0-17.0 [facility] Leukocytes [#/volume] correc suzy for nucleated erythrocytes in Blood by Automated counOrdered By: Jaiden Nance on 08-21-2024 WBC corrected for nucl RBC Auto (Bld) [#/Vol] Leukocytes [#/volume] corrected for nucleated erythrocytes in Blood by Automated coun 4.1-10.5 [facility] Lymphocytes Auto (Bld) [#/Vo l]Ordered By: Jaiden Nance on 08-21-2024 Lymphocytes (Bld) [#/Vol] Lymphocytes [#/volume] in Blood by Automated count Low 1.00-4.8 [facility] Lymphocytes/100 WBC Auto (Bl d)Ordered By: Jaiden Nance on 08-21-2024 Lymphocytes/100 WBC (Bld) Lymphocytes/100 leukocytes in Blood by Automated count . [facility] MCH Auto (RBC) [Entitic mass ]Ordered By: Jaiden Nance on 08-21-2024 MCH (RBC) [Entitic mass] MCH [Entitic mass] by Automated count 27.5-35.2 [facility] MCHC Auto (RBC) [Mass/Vol]Or dered By: Jaiden Nance on 08-21-2024 MCHC (RBC) [Mass/Vol] MCHC [Mass/volume] by Automated count 32.5-35.6 [facility] MCV Auto (RBC) [Entitic vol] Ordered By: Jaiden Nance on 08-21-2024 MCV (RBC) [Entitic vol] MCV [Entitic volume] by Automated count 83.5-101 [facility] Magnesiumon 08-21-2024 Magnesium [Mass/Vol] 1.8 mg/dL Low 1.9-2.7 [facility] Comment on above: Result Comment: PERF ORMED BY: [place] [address] PATHOLOGIST BRAID MAKER HEBER SHANNON M.D. Performed By: #### C BC, MG, CMP #### [address] Magnesium [Mass/volume] in S stephanie or PlasmaOrdered By: Jaiden Nance on 08-21-2024 Magnesium [Mass/Vol] Magnesium [Mass/vol ume] in Serum or Plasma Low 1.9-2.7 [facility] Monocytes Auto (Bld) [#/Vol] Ordered By: Jaiden Nance on 08-21-2024 Monocytes (Bld) [#/Vol] Automated blood monocyte count 0.0-0.8 [facility] Monocytes/100 WBC Auto (Bld) Ordered By: Jaiden Nance on 08-21-2024 Monocytes/100 WBC (Bld) Automated monocyte % . [facility] Neutrophils Auto (Bld) [#/Vo l]Ordered By: Jaiden Nance on 08-21-2024 Neutrophils (Bld) [#/Vol] Neutrophils [#/volume] in Blood by Automated count 1.8-7.7 [facility] Neutrophils/100 WBC Auto (Bl d)Ordered By: Jaiden Nance on 08-21-2024 Neutrophils/100 WBC (Bld) Automated neutrophil % . [facility] No Panel InformationOrdered By: Jaiden Nance on 08-21-2024 Estimated GFR (CKD-EPI) > 60.0 mL/Min [facility] Creatinine Clearance (Chem 59.79 [facility] Nucleated erythrocytes [Pres ence] in Blood by Automated countOrdered By: Jaiden Nance on 08-21-2024 Nucleated RBC Auto Ql (Bld) Nucleated erythrocytes [Presence] in Blood by Automated count 0-0.5 [facility] Platelet mean volume Auto (B ld) [Entitic vol]Ordered By: Jaiden Nance on 08-21-2024 Platelet mean volume (Bld) [Entitic vol] Platelet mean volume [Entitic volume] in Blood by Automated count 6.6-10.1 [facility] Platelets Auto (Bld) [#/Vol] Ordered By: Jaiden Nance on 08-21-2024 Platelets (Bld) [#/Vol] Platelets [#/volume] in Blood by Automated count 150-450 [facility] Potassium [Moles/volume] in Serum or PlasmaOrdered By: Jaiden Nance on 08-21-2024 Potassium [Moles/Vol] Potassium [Moles/v olume] in Serum or Plasma Low 3.5-5.1 [facility] Protein [Mass/volume] in Ser um or PlasmaOrdered By: Jaiden Nance on 08-21-2024 Protein [Mass/Vol] Protein [Mass/volume ] in Serum or Plasma Low 6.4-8.9 [facility] RBC Auto (Bld) [#/Vol]Ordere d By: Jaiden Nance on 08-21-2024 RBC (Bld) [#/Vol] Erythrocytes [#/volu me] in Blood by Automated count Low 3.90-5.60 [facility] Serum or plasma albumin/glob ulin mass ratioOrdered By: Jaiden Nance on 08-21-2024 Albumin/Globulin [Mass ratio] Serum or plasma albumin/globulin mass ratio [facility] Serum or plasma anion gap de terminationOrdered By: Jaiden Nance on 08-21-2024 Anion gap [Moles/Vol] Serum or plasma an ion gap determination 6.0-15.0 [facility] Sodium [Moles/volume] in Ser um or PlasmaOrdered By: Jaiden Nance on 08-21-2024 Sodium [Moles/Vol] Sodium [Moles/volume ] in Serum or Plasma 136-145 [facility] Urea nitrogen [Mass/volume] in Serum or PlasmaOrdered By: Jaiden Nance on 08-21-2024 Urea nitrogen [Mass/Vol] Urea nitrogen [Mass/volume] in Serum or Plasma 7-25 [facility] WBC Auto (Bld) [#/Vol]Ordere d By: Jaiden Nance on 08-21-2024 WBC (Bld) [#/Vol] Leukocytes [#/volume ] in Blood by Automated count 4.1-10.5 [facility] Alanine aminotransferase [En zymatic activity/volume] in Serum or PlasmaOrdered By: Louie Marrero on 08-20-2024 ALT [Catalytic activity/Vol] Alanine aminotransferase [Enzymatic activity/volume] in Serum or Plasma 7-52 [facility] Albumin [Mass/volume] in Ser um or Plasma by Bromocresol green (BCG) dye binding methoOrdered By: Louie Marrero on 08-20-2024 Albumin BCG dye [Mass/Vol] Albumin [Mass/volume] in Serum or Plasma by Bromocresol green (BCG) dye binding metho Low 3.5-5.7 [facility] Alkaline phosphatase [Enzyma tic activity/volume] in Serum or PlasmaOrdered By: Louie Marrero on 08-20-2024 ALP [Catalytic activity/Vol] Alkaline phosphatase [Enzymatic activity/volume] in Serum or Plasma 34-104 [facility] Appearance of UrineOrdered B y: Louie Marrero on 08-20-2024 Appearance (U) Urine appearance Clear [facility] Aspartate aminotransferase [ Enzymatic activity/volume] in Serum or PlasmaOrdered By: Louie Marrero on 08-20-2024 AST [Catalytic activity/Vol] Aspartate aminotransferase [Enzymatic activity/volume] in Serum or Plasma 13-39 [facility] Basophils Auto (Bld) [#/Vol] Ordered By: Louie Marrero on 08-20-2024 Basophils (Bld) [#/Vol] Automated basophil count 0.0-0.2 [facility] Basophils/100 WBC Auto (Bld) Ordered By: Louie Marrero on 08-20-2024 Basophils/100 WBC (Bld) Automated basophil % . [facility] Bilirubin Test strip Ql (U)O rdered By: Louie Marrero on 08-20-2024 Bilirubin Ql (U) Bilirubin.total [Presence] in Urine by Test strip Negative [facility] Bilirubin.total [Mass/volume ] in Serum or PlasmaOrdered By: Louie Marrero on 08-20-2024 Bilirubin [Mass/Vol] Bilirubin.total [Mass/volume] in Serum or Plasma 0.3-1.0 [facility] BioFire Not Detectedon 08-20 BioFire Not Detected Not detected Normal Not Detecte [facility] Comment on above: Result Comment: This is a duplicate RP2.1 COVID (PCR) result to be used for statistical tracking purpose only. PERFORMED BY: [place] [address] PATHOLOGIST BRAID MAKER HEBER SHANNON M.D. Performed By: #### C BC, CMP, MG #### [address] Blood Cultureon 08-20-2024 Bacteria identified Cx Nom (Bld) MISSED X1 PT REFUSED TO LET ME TRY AGAIN RN NORRIS KNOWS NO GROWTH 5 DAYS PERFORMED BY: [place] [address] PATHOLOGIST BRAID MAKER HEBER SHANNON M.D. Normal [facility] Comment on above: Performed By: #### C BC, MG, CMP #### [facility] [address] [place] [address] Bacteria identified Cx Nom (Bld) right chest NO GROWTH 5 DAYS PERFORMED BY: [place] [address] PATHOLOGIST BRAID MAKER HEBER SHANNON M.D. Normal [facility] Comment on above: Performed By: #### C BC, MG, CMP #### [address] C reactive protein [Mass/vol ume] in Serum or PlasmaOrdered By: Louie Marrero on 08-20-2024 CRP [Mass/Vol] C reactive protein [Mass/volume] in Serum or Plasma High 0.0-0.5 [facility] C-Reactive Proteinon 025 C-Reactive Protein 3.3 mg/dL High 0.0-0.5 [facility] Comment on above: Result Comment: PERF ORMED BY: [place] [address] PATHOLOGIST BRAID MAKER HEBER SHANNON M.D. Performed By: #### C BC, MG, CMP #### [facility] [address] [place] [address] COVID-19 Detected/Not Detect edOrdered By: Louie Marrero on 08-20-2024 SARS-CoV-2 (COVID-19) RNA MICHELLE+non-probe Ql (Nph) Not detected Not Detecte [facility] Comment on above: This is a duplicate RP2.1 COVID (PCR) result to be used for statistical tracking purpose only. Calcium [Mass/volume] in Ser um or PlasmaOrdered By: Louie Marrero on 08-20-2024 Calcium [Mass/Vol] Calcium [Mass/volume ] in Serum or Plasma Low 8.6-10.3 [facility] Carbon dioxide, total [Moles /volume] in Serum or PlasmaOrdered By: Louie Marrero on 08-20-2024 CO2 [Moles/Vol] Carbon dioxide, tota l [Moles/volume] in Serum or Plasma 21.0-31.0 [facility] Chloride [Moles/volume] in S stephanie or PlasmaOrdered By: Louie Marrero on 08-20-2024 Chloride [Moles/Vol] Chloride [Moles/vol ume] in Serum or Plasma 98-107 [facility] Color Auto (U)Ordered By: Niko Marrero on 08-20-2024 Color (U) Color of Urine by Auto Yellow Fi relaReplaced by [facility] Complete Blood Count Auto Di ffon 08-20-2024 Basophils (Bld) [#/Vol] 0.0 10*3/uL Normal 0.0-0.2 [facility] Comment on above: Result Comment: PERF ORMED BY: [place] [address] PATHOLOGIST BRAID MAKER HEBER SHANNON M.D. Performed By: #### C BC, MG, CMP #### [address] Basophils/100 WBC (Bld) 0.5 % Normal . [facility] Comment on above: Performed By: #### C BC, MG, CMP #### [facility] [address] [place] [address] Eosinophils (Bld) [#/Vol] 0.1 10*3/uL Normal 0.0-0.45 [facility] Comment on above: Performed By: #### C BC, MG, CMP #### [address] Eosinophils/100 WBC (Bld) 0.7 % Normal . [facility] Comment on above: Performed By: #### C BC, MG, CMP #### [place] [address] [place] Erythrocyte distribution width (RBC) [Ratio] 14.8 % Normal 12.0-14.8 [facility] Comment on above: Performed By: #### C BC MG, CMP #### [address] Hematocrit (Bld) [Volume fraction] 34.2 % Low 38.8-50.0 [facility] Comment on above: Performed By: #### C BC MG, CMP #### [address] Hemoglobin (Bld) [Mass/Vol] 11.4 g/dL Low 13.0-17.0 [facility] Comment on above: Performed By: #### C BC MG, CMP #### [address] Lymphocytes (Bld) [#/Vol] 0.8 10*3/uL Low 1.00-4.8 [facility] Comment on above: Performed By: #### C BC MG, CMP #### [address] Lymphocytes/100 WBC (Bld) 10.5 % Normal . [facility] Comment on above: Performed By: #### C BC MG, CMP #### [address] MCH (RBC) [Entitic mass] 31.0 pg Normal 27.5-35.2 [facility] Comment on above: Performed By: #### C BC, MG, CMP #### [address] MCV (RBC) [Entitic vol] 92.9 fL Normal 83.5-101 [facility] Comment on above: Performed By: #### C BC, MG, CMP #### [address] Mean Corpuscular HGB Conc 33.4 g/dL Normal 32.5-35.6 [facility] Comment on above: Performed By: #### C BC, MG, CMP #### [facility] [address] Monocytes (Bld) [#/Vol] 0.8 10*3/uL Normal 0.0-0.8 [facility] Comment on above: Performed By: #### C BC, MG, CMP #### [address] Monocytes/100 WBC (Bld) 23.19 % High 0.00-20.00 [facility] Comment on above: Result Comment: For adults in ED, MDW > 20.0 may be associated with a higher risk of sepsis during the first 12 hrs of hospital admission Performed By: #### C BC, MG, CMP #### [place] [address] [place] Monocytes/100 WBC (Bld) 11.3 % Normal . [facility] Comment on above: Performed By: #### C BC, MG, CMP #### [address] Neutrophils (Bld) [#/Vol] 5.7 10*3/uL Normal 1.8-7.7 [facility] Comment on above: Performed By: #### C BC, MG, CMP #### [address] Neutrophils/100 WBC (Bld) 77.0 % Normal . [facility] Comment on above: Performed By: #### C BC, MG, CMP #### [place] [address] [place] NRBC% 0.2 /100{WBC} Normal 0-0.5 [facility] Comment on above: Performed By: #### C BC, MG, CMP #### [place] [address] [place] Platelet mean volume (Bld) [Entitic vol] 8.1 fL Normal 6.6-10.1 [facility] Comment on above: Performed By: #### C BC, MG, CMP #### [place] [address] [place] Platelets (Bld) [#/Vol] 234 10*3/uL Normal 150-450 [facility] Comment on above: Performed By: #### C BC, MG, CMP #### [address] RBC (Bld) [#/Vol] 3.68 10*6/uL Low 3.90-5.60 [facility] Comment on above: Performed By: #### C BC, MG, CMP #### [address] WBC (Bld) [#/Vol] 7.4 10*3/uL Normal 4.1-10.5 [facility] Comment on above: Performed By: #### C BC, MG, CMP #### [address] Comprehensive Metabolic Pane obdulio 08-20-2024 Albumin [Mass/Vol] 3.4 g/dL Low 3.5-5.7 The [facility] Comment on above: Performed By: #### C BC, MG, CMP #### [address] Albumin/Globulin [Mass ratio] 1.4 {ratio} Normal [facility] Comment on above: Performed By: #### C BC, MG, CMP #### [address] ALP [Catalytic activity/Vol] 66 U/L Normal 34-104 [facility] Comment on above: Performed By: #### C BC, MG, CMP #### [address] ALT [Catalytic activity/Vol] 17 U/L Normal 7-52 [facility] Comment on above: Performed By: #### C BC, MG, CMP #### [address] Anion gap [Moles/Vol] 10.3 mmol/L Normal 6.0-15.0 [facility] Comment on above: Performed By: #### C BC, MG, CMP #### [address] AST [Catalytic activity/Vol] 18 U/L Normal 13-39 [facility] Comment on above: Performed By: #### C BC, MG, CMP #### [address] Bilirubin [Mass/Vol] 0.6 mg/dL Normal 0.3-1.0 [facility] Comment on above: Performed By: #### C BC, MG, CMP #### [address] Calcium [Mass/Vol] 8.4 mg/dL Low 8.6-10.3 [facility] Comment on above: Performed By: #### C BC, MG, CMP #### [address] Chloride [Moles/Vol] 104 mmol/L Normal 98-107 [facility] Comment on above: Performed By: #### C BC, MG, CMP #### [address] CO2 [Moles/Vol] 25.4 mmol/L Normal 21.0-31.0 [facility] Comment on above: Performed By: #### C BC, MG, CMP #### [address] Creatinine [Mass/Vol] 0.85 mg/dL Normal 0.70-1.30 [facility] Comment on above: Performed By: #### C BC, MG, CMP #### [address] Creatinine Clr Calc Pharmacy 58.71 Normal [facility] Comment on above: Result Comment: PERF ORMED BY: [place] [address] PATHOLOGIST BRAID MAKER HEBER SHANNON M.D. Performed By: #### C BC, MG, CMP #### [place] [address] [place] GFR/1.73 sq M.predicted MDRD (S/P/Bld) [Vol rate/Area] mL/min/{1.73_m2} Normal [facility] Comment on above: Performed By: #### C BC, MG, CMP #### [address] Globulin (S) [Mass/Vol] 2.5 g/dL Normal [facility] Comment on above: Performed By: #### C BC, MG, CMP #### [address] Glucose [Mass/Vol] 106 mg/dL High 70-100 [facility] Comment on above: Result Comment: [facility] Glucose Reference Range is dependent on time and content of last meal. Glucose of more than 200 mg/dL in a nonstressed, ambulatory subject supports the diagnosis of Diabetes Mellitus. ADA recommended reference range Performed By: #### C BC, MG, CMP #### [address] Potassium [Moles/Vol] 3.7 mmol/L Normal 3.5-5.1 [facility] Comment on above: Performed By: #### C BC, MG, CMP #### [address] Protein [Mass/Vol] 5.9 g/dL Low 6.4-8.9 [facility] Comment on above: Performed By: #### C BC, MG, CMP #### [address] Sodium [Moles/Vol] 136 mmol/L Normal 136-145 [facility] Comment on above: Performed By: #### C BC, MG, CMP #### [address] Urea nitrogen [Mass/Vol] 16 mg/dL Normal 7-25 [facility] Comment on above: Performed By: #### C BC, MG, CMP #### [address] Creatinine [Mass/volume] in Serum or PlasmaOrdered By: Louie Marrero on 08-20-2024 Creatinine [Mass/Vol] Creatinine [Mass/v olume] in Serum or Plasma 0.70-1.30 [facility] ECG 12 lead ECGon 08-20-2024 ECG 12 lead ECG [facility] Main [address] [address] Electrocardiograph Report Signed Patient: Jeremie Bennett MR#: [id number] : 1940 Acct:[id number] Age/Sex: 83 / M ADM Date: 08/20/24 Loc: ER Room: Type: [facility] ER Attending Dr: Ordering Provider: Louie [...] ECGs available Confirmed by LOUIE MARRERO DO ([id number]) on 08/20/2024 7:55:25 PM Referred By: Electronically Signed By: LOUIE MARRERO DO Transcribed By: MUS Signed By Louie Marrero DO 08/20 Normal [facility] Eosinophils Auto (Bld) [#/Vo l]Ordered By: Louie Marrero on 08-20-2024 Eosinophils (Bld) [#/Vol] Automated eosinophil count 0.0-0.45 [facility] Eosinophils/100 WBC Auto (Bl d)Ordered By: Louie Marrero on 08-20-2024 Eosinophils/100 WBC (Bld) Automated eosinophil % . [facility] Erythrocyte Sedimentation Ra ciro 08-20-2024 ESR (Bld) [Velocity] 42 mm/h High 0-19 [facility] Comment on above: Result Comment: PERF ORMED BY: [address] [address] PATHOLOGIST BRAID MAKER HEBER SHANNON M.D. Performed By: #### C BC, MG, CMP #### [facility] [address] [place] [id number] [facility] Erythrocyte distribution wid th Auto (RBC) [Ratio]Ordered By: Louie Marrero on 08-20-2024 Erythrocyte distribution width (RBC) [Ratio] Erythrocyte distribution width [Ratio] by Automated count 12.0-14.8 [facility] Erythrocyte sedimentation ra te by Photometric methodOrdered By: Jaiden Nance on 08-20-2024 ESR Photometric method (Bld) [Velocity] Erythrocyte sedimentation rate by Photometric method High 0-19 [facility] Globulin Calc (S) [Mass/Vol] Ordered By: Louie Marrero on 08-20-2024 Globulin (S) [Mass/Vol] Serum globulin measurement by calculation (mass/volume) [facility] Glucose [Mass/volume] in Ser um or PlasmaOrdered By: Louie Marrero on 08-20-2024 Glucose [Mass/Vol] Glucose [Mass/volume ] in Serum or Plasma High 70-100 [facility] Comment on above: ADA recommended [...] [Mass/volume] in Urine by Test strip Normal [facility] Hematocrit Auto (Bld) [Volum e fraction]Ordered By: Louie Marrero on 08-20-2024 Hematocrit (Bld) [Volume fraction] Hematocrit [Volume Fraction] of Blood by Automated count Low 38.8-50.0 [facility] Hemoglobin Test strip Ql (U) Ordered By: Louie Marrero on 08-20-2024 Hemoglobin Ql (U) Hemoglobin [Presence ] in Urine by Test strip Negative [facility] Hemoglobin [Mass/volume] in BloodOrdered By: Louie Marrero on 08-20-2024 Hemoglobin (Bld) [Mass/Vol] Hemoglobin [Mass/volume] in Blood Low 13.0-17.0 [facility] INR in Platelet poor plasma by Coagulation assayOrdered By: Louie Marrero on 08-20-2024 INR Coag (PPP) [Relative time] INR in Platelet poor plasma by Coagulation assay [facility] Comment on above: INR Therapeutic [...] n Urine by Test strip High Negative [facility] Laboratory - Microbiology an d Antimicrobial susceptibilityOrdered By: Louie Marrero on 08-20-2024 Bacteria identified Cx Nom (Bld) NO GROWTH 5 DAYS [facility] Bacteria identified Cx Nom (Bld) NO GROWTH 5 DAYS [facility] Lactate [Moles/volume] in Se rum or PlasmaOrdered By: Louie Marrero on 08-20-2024 Lactate [Moles/Vol] Lactate [Moles/volum e] in Serum or Plasma 0.5-1.9 [facility] Comment on above: Lactic Acid referenc e range has been updated to 0.5 1.9 mmol/L and the critical range of 2.0 or greater. Lactic Acidon 08-20-2024 Lactate [Moles/Vol] 0.8 mmol/L Normal 0.5-1.9 [facility] Comment on above: Result Comment: Lact ic Acid reference range has been updated to 0.5 ? 1.9 mmol/L and the critical range of 2.0 or greater. PERFORMED BY: [place] [address] PATHOLOGIST BRAID MAKER HEBER SHANNON M.D. Performed By: #### C BC, MG, CMP #### [address] Leukocyte esterase [Presence ] in Urine by Test stripOrdered By: Louie Marrero on 08-20-2024 Leukocyte esterase Test strip Ql (U) Leukocyte esterase [Presence] in Urine by Test strip Negative [facility] Leukocytes [#/volume] correc suzy for nucleated erythrocytes in Blood by Automated counOrdered By: Louie Marrero on 08-20-2024 WBC corrected for nucl RBC Auto (Bld) [#/Vol] Leukocytes [#/volume] corrected for nucleated erythrocytes in Blood by Automated coun 4.1-10.5 [facility] Lymphocytes Auto (Bld) [#/Vo l]Ordered By: Louie Marrero on 08-20-2024 Lymphocytes (Bld) [#/Vol] Lymphocytes [#/volume] in Blood by Automated count Low 1.00-4.8 [facility] Lymphocytes/100 WBC Auto (Bl d)Ordered By: Louie Marrero on 08-20-2024 Lymphocytes/100 WBC (Bld) Lymphocytes/100 leukocytes in Blood by Automated count . [facility] MCH Auto (RBC) [Entitic mass ]Ordered By: Louie Marrero on 08-20-2024 MCH (RBC) [Entitic mass] MCH [Entitic mass] by Automated count 27.5-35.2 [facility] MCHC Auto (RBC) [Mass/Vol]Or dered By: Louie Marrero on 08-20-2024 MCHC (RBC) [Mass/Vol] MCHC [Mass/volume] by Automated count 32.5-35.6 [facility] MCV Auto (RBC) [Entitic vol] Ordered By: Louie Marrero on 08-20-2024 MCV (RBC) [Entitic vol] MCV [Entitic volume] by Automated count 83.5-101 [facility] Monocyte distribution width [Entitic volume] in Blood by AutomatedOrdered By: Louie Marrero on 08-20-2024 Monocyte distribution width Auto (Bld) [Entitic vol] Monocyte distribution width [Entitic volume] in Blood by Automated High 0.00-20.00 [facility] Comment on above: For adults in ED, MD W > 20.0 may be associated with a higher risk of sepsis during the first 12 hrs of hospital admission Monocytes Auto (Bld) [#/Vol] Ordered By: Louie Marrero on 08-20-2024 Monocytes (Bld) [#/Vol] Automated blood monocyte count 0.0-0.8 [facility] Monocytes/100 WBC Auto (Bld) Ordered By: Louie Marrero on 08-20-2024 Monocytes/100 WBC (Bld) Automated monocyte % . [facility] Neutrophils Auto (Bld) [#/Vo l]Ordered By: Louie Marrero on 08-20-2024 Neutrophils (Bld) [#/Vol] Neutrophils [#/volume] in Blood by Automated count 1.8-7.7 [facility] Neutrophils/100 WBC Auto (Bl d)Ordered By: Louie Marrero on 08-20-2024 Neutrophils/100 WBC (Bld) Automated neutrophil % . [facility] Nitrite Test strip Ql (U)Ord ered By: Louie Marrero on 08-20-2024 Nitrite Ql (U) Nitrite [Presence] i n Urine by Test strip Negative [facility] No Panel InformationOrdered By: Louie Marrero on 08-20-2024 Estimated GFR (CKD-EPI) > 60.0 mL/Min [facility] Creatinine Clearance (Chem 58.71 [facility] Nucleated erythrocytes [Pres ence] in Blood by Automated countOrdered By: Louie Marrero on 08-20-2024 Nucleated RBC Auto Ql (Bld) Nucleated erythrocytes [Presence] in Blood by Automated count 0-0.5 [facility] Platelet mean volume Auto (B ld) [Entitic vol]Ordered By: Louie Marrero on 08-20-2024 Platelet mean volume (Bld) [Entitic vol] Platelet mean volume [Entitic volume] in Blood by Automated count 6.6-10.1 [facility] Platelets Auto (Bld) [#/Vol] Ordered By: Louie Marrero on 08-20-2024 Platelets (Bld) [#/Vol] Platelets [#/volume] in Blood by Automated count 150-450 [facility] Potassium [Moles/volume] in Serum or PlasmaOrdered By: Louie Marrero on 08-20-2024 Potassium [Moles/Vol] Potassium [Moles/v olume] in Serum or Plasma 3.5-5.1 [facility] Protein Test strip (U) [Mass /Vol]Ordered By: Louie Marrero on 08-20-2024 Protein (U) [Mass/Vol] Protein [Mass/vol ume] in Urine by Test strip Negative [facility] Protein [Mass/volume] in Ser um or PlasmaOrdered By: Louie Marrero on 08-20-2024 Protein [Mass/Vol] Protein [Mass/volume ] in Serum or Plasma Low 6.4-8.9 [facility] Prothrombin Time INRon 08-20 INR Coag (PPP) [Relative time] 1.1 {INR} Normal [facility] Comment on [...] heart valves: 3 - 4.5 PERFORMED BY: [place] [address] PATHOLOGIST BRAID MAKER HEBER SHANNON M.D. Performed By: #### C FREDDY MG, CMP #### [address] PT Coag (PPP) [Time] 12.9 s Normal 9.0-12.9 [facility] Comment on above: Result Comment: A he matocrit value greater than 55% may lead to inaccurate results in coagulation testing. Patients having hematocrit values >55% require a special collection tube for coagulation studies. Please contact the laboratory at [phone] for redraw instructions. Performed By: #### C MG FREDDY, CMP #### [address] Prothrombin time (PT)Ordered By: Louie Marrero on 08-20-2024 PT Coag (PPP) [Time] Prothrombin time (PT) 9.0- 12.9 [facility] Comment on above: A hematocrit value g reater than 55% may lead to inaccurate results in coagulation testing. Patients having hematocrit values >55% require a special collection tube for coagulation studies. Please contact the laboratory at [phone] for redraw instructions. RBC Auto (Bld) [#/Vol]Ordere d By: Louie Marrero on 08-20-2024 RBC (Bld) [#/Vol] Erythrocytes [#/volu me] in Blood by Automated count Low 3.90-5.60 [facility] Respiratory (Upper) Panel, P CRon [...] A H3 Blank Space ---- PERFORMED BY: [place] [address] PATHOLOGIST BRAID MAKER HEBER SHANNON M.D. Normal [facility] Comment on above: Performed By: #### C BC, CMP, MG #### [facility] [address] Respiratory pathogens DNA an d RNA panel - Nasopharynx by MICHELLE with non-probe detectionOrdered By: Louie Marrero on 08-20-2024 Respiratory pathogens DNA and RNA panel MICHELLE+non-probe (Nph) Respiratory pathogens DNA and RNA panel - Nasopharynx by MICHELLE with non-probe detection [facility] Serum or plasma albumin/glob ulin mass ratioOrdered By: Louie Marrero on 08-20-2024 Albumin/Globulin [Mass ratio] Serum or plasma albumin/globulin mass ratio [facility] Serum or plasma anion gap de terminationOrdered By: Louie Marrero on 08-20-2024 Anion gap [Moles/Vol] Serum or plasma an ion gap determination 6.0-15.0 [facility] Sodium [Moles/volume] in Ser um or PlasmaOrdered By: Louie Marrero on 08-20-2024 Sodium [Moles/Vol] Sodium [Moles/volume ] in Serum or Plasma 136-145 [facility] Specific gravity Test strip (U) [Rel density]Ordered By: Louie Marrero on 08-20-2024 Specific gravity (U) [Rel density] Specific gravity of Urine by Test strip 1.001-1.03 0 [facility] Troponin I High Sensitivityo n 08-20-2024 Troponin I High Sensitivity 12 Normal 0-20 [facility] Comment on above: Result Comment: The Troponin units of report have been changed to meet the Chest Pain Accreditation requirement, element EC5.M1l2. Troponin units are changed from pg/ml to ng/L. Also, the decimal is removed and results are in whole numbers. PERFORMED BY: [place] [address] PATHOLOGIST BRAID MAKER HEBER SHANNON M.D. Performed By: #### H S TROP #### [address] Troponin I.cardiac [Mass/vol ume] in Serum or Plasma by Detection limit <= 0.01 ng/Ordered By: Louie Marrero on 08-20-2024 Troponin I.cardiac DL <= 0.01 ng/mL [Mass/Vol] Troponin I.cardiac [Mass/volume] in Serum or Plasma by Detection limit <= 0.01 ng/ 0-20 [facility] Comment on above: The Troponin [...] nitrogen [Mass/volume] in Serum or Plasma 12-08 [facility] Urinalysison 08-20-2024 Appearance (U) Clear Normal Clear [facility] Comment on above: Order Comment: Name Collection Type:: Straight Catheter Performed By: #### U A #### [facility] [address] [place] [address] [place] Bilirubin,Urine Negative Normal Negative [facility] Comment on above: Order Comment: Name Collection Type:: Straight Catheter Performed By: #### U A #### [facility] [address] [place] [address] [place] Color (U) Light-Yellow Normal Yellow [facility] Comment on above: Order Comment: Name Collection Type:: Straight Catheter Performed By: #### U A #### [place] [address] [place] Glucose Ql (U) Normal Normal Normal [facility] Comment on above: Order Comment: Name Collection Type:: Straight Catheter Performed By: #### U A #### [facility] [address] [place] [address] [place] Ketones Ql (U) 1+ High Negative [facility] Comment on above: Order Comment: Name Collection Type:: Straight Catheter Performed By: #### U A #### [address] Leukocyte esterase Test strip Ql (U) Negative Normal Negative [facility] Comment on above: Order Comment: Name Collection Type:: Straight Catheter Performed By: #### U A #### [facility] [address] [place] [address] [place] Nitrite,Urine Negative Normal Negative [facility] Comment on above: Order Comment: Name Collection Type:: Straight Catheter Performed By: #### U A #### [facility] [address] [place] [address] [place] Occult Blood,Urine Negative Normal Negative [facility] Comment on above: Order Comment: Name Collection Type:: Straight Catheter Result Comment: PERF ORMED BY: [place] [address] PATHOLOGIST BRAID MAKER HEBER SHANNON M.D. Performed By: #### U A #### [address] pH (U) 5.5 [pH] Normal 5.0-9.0 [facility] Comment on above: Order Comment: Name Collection Type:: Straight Catheter Performed By: #### U A #### [address] Protein,Urine Negative Normal Negative [facility] Comment on above: Order Comment: Name Collection Type:: Straight Catheter Performed By: #### U A #### [address] Specificy [place],Urine 1.017 Normal 1.001-1.03 0 [facility] Comment on above: Order Comment: Name Collection Type:: Straight Catheter Performed By: #### U A #### [address] Urobilinogen,Urine Normal Normal Normal [facility] Comment on above: Order Comment: Name Collection Type:: Straight Catheter Performed By: #### U A #### [address] Urobilinogen Test strip (U) [Mass/Vol]Ordered By: Louie Marrero on 08-20-2024 Urobilinogen (U) [Mass/Vol] Urobilinogen [Mass/volume] in Urine by Test strip Normal [facility] WBC Auto (Bld) [#/Vol]Ordere d By: Louie Marrero on 08-20-2024 WBC (Bld) [#/Vol] Leukocytes [#/volume ] in Blood by Automated count 4.1-10.5 [facility] X-ray reportOrdered By: Brooks Benavides on 08-20-2024 Study report [facility] Main [place] [address] [place] [address] XRay Report Signed Patient: Jeremie Bennett MR#: [id number] : 1940 Acct:[id number] Age/Sex: 83 / M ADM Date: 5 Loc: ER Room: Type: [facility] ER Attending Dr: Copies to: Louie Marrero DO~ Ordering Provider: Louie Marrero DO Date of Service: 08/20/24 XR/XR chest 1V portable: Fever SINGLE VIEW CHEST CLINICAL HISTORY: Fever, recently finished chemotherapy, cough for 3 weeks COMPARISON: 07/17/2024 FINDINGS: Left-sided pacemaker device. Right-sided [id number]. Posterior changes fromprior ACDF. Mildly enlarged cardiac silhouette. Minimal hazy bibasilar opacities similar prior exam. No effusion or pneumothorax. XR/XR chest 1V portable IMPRESSION: MILD BIBASILAR AIRSPACE OPACITIES, THESE APPEAR SIMILAR PRIOR EXAM. Impression dictated by: Rah Benavides M.D.08/20/2024 6:32 PM Dictation Location: [place] [address] Transcribed By: [facility] 08/20/241831 Dictated By: Rah Benavides MD 08/20/241830 Signed By: 08/20/241831 [facility] Work Phone: XR chest 1V portableon 08-20 XR chest 1V portable [facility] Main [place] [id number] XRay Report Signed Patient: Jeremie Bennett MR#: [id number] : [id number] Acct:[id number] Age/Sex: 83 / M ADM Date: 08/20/24 Loc: ER Room: Type: [facility] ER Attending Dr: Copies to: Louie Marrero DO Ordering Provider: Louie Marrero DO Date of Service: 08/20/24 XR/XR chest 1V portable: Fever SINGLE VIEW CHEST CLINICAL HISTORY: Fever, recently finished chemotherapy, cough for 3 weeks COMPARISON: 07/17/2024 FINDINGS: Left-sided pacemaker device. Right-sided Vngbze-s-Jour. Posterior changes from prior ACDF. Mildly enlarged cardiac silhouette. Minimal hazy bibasilar opacities similar prior exam. No effusion or pneumothorax. XR/XR chest 1V portable IMPRESSION: MILD BIBASILAR AIRSPACE OPACITIES, THESE APPEAR SIMILAR PRIOR EXAM. Impression dictated by: Rah Benavides M.D.08/20/2024 6:32 PM Dictation Location: [place] [address] Transcribed By: PERLA 08/20/241831 Dictated By: Rah Benavides MD 08/20/241830 Signed By: 08/20/241831 Normal [facility] pH Test strip (U)Ordered By: Louie Marrero on 08-20-2024 pH (U) pH of Urine by Test strip 5.0-9.0 [facility] Alanine aminotransferase [En zymatic activity/volume] in Serum or PlasmaOrdered By: Talib Faustin on 08-16-2024 ALT [Catalytic activity/Vol] Alanine aminotransferase [Enzymatic activity/volume] in Serum or Plasma 7-52 [facility] Albumin [Mass/volume] in Ser um or Plasma by Bromocresol green (BCG) dye binding methoOrdered By: Talib Faustin on 08-16-2024 Albumin BCG dye [Mass/Vol] Albumin [Mass/volume] in Serum or Plasma by Bromocresol green (BCG) dye binding metho 3.5-5.7 [facility] Alkaline phosphatase [Enzyma tic activity/volume] in Serum or PlasmaOrdered By: Talib Faustin on 08-16-2024 ALP [Catalytic activity/Vol] Alkaline phosphatase [Enzymatic activity/volume] in Serum or Plasma 34-104 [facility] Aspartate aminotransferase [ Enzymatic activity/volume] in Serum or PlasmaOrdered By: Talib Faustin on 08-16-2024 AST [Catalytic activity/Vol] Aspartate aminotransferase [Enzymatic activity/volume] in Serum or Plasma 13-39 [facility] Basophils Auto (Bld) [#/Vol] Ordered By: Talib Faustin on 08-16-2024 Basophils (Bld) [#/Vol] Automated basophil count 0.0-0.2 [facility] Basophils/100 WBC Auto (Bld) Ordered By: Talib Faustin on 08-16-2024 Basophils/100 WBC (Bld) Automated basophil % . [facility] Bilirubin.total [Mass/volume ] in Serum or PlasmaOrdered By: Talib Faustin on 08-16-2024 Bilirubin [Mass/Vol] Bilirubin.total [Mass/volume] in Serum or Plasma 0.3-1.0 [facility] Calcium [Mass/volume] in Ser um or PlasmaOrdered By: Talib Faustin on 08-16-2024 Calcium [Mass/Vol] Calcium [Mass/volume ] in Serum or Plasma 8.6-10.3 [facility] Carbon dioxide, total [Moles /volume] in Serum or PlasmaOrdered By: Talib Hargrove on 08-16-2024 CO2 [Moles/Vol] Carbon dioxide, tota l [Moles/volume] in Serum or Plasma 21.0-31.0 [facility] Chloride [Moles/volume] in S stephanie or PlasmaOrdered By: Talib Faustin on 08-16-2024 Chloride [Moles/Vol] Chloride [Moles/vol ume] in Serum or Plasma 98-107 [facility] Complete Blood Count Auto Di ffon 08-16-2024 Basophils (Bld) [#/Vol] 0.1 10*3/uL Normal 0.0-0.2 [facility] Comment on above: Result Comment: PERF ORMED BY: [address] [place] [address] PATHOLOGIST BRA[employer] MAKER HEBER SHANNON M.D. Performed By: #### C BC, MG, CMP #### [address] Basophils/100 WBC (Bld) 1.1 % Normal . [facility] Comment on above: Performed By: #### C BC, MG, CMP #### [facility] [address] Eosinophils (Bld) [#/Vol] 0.1 10*3/uL Normal 0.0-0.45 [facility] Comment on above: Performed By: #### C BC, MG, CMP #### [address] Eosinophils/100 WBC (Bld) 0.7 % Normal . [facility] Comment on above: Performed By: #### C BC MG, CMP #### [address] Erythrocyte distribution width (RBC) [Ratio] 15.2 % High 12.0-14.8 [facility] Comment on above: Performed By: #### C BC MG, CMP #### [address] Hematocrit (Bld) [Volume fraction] 34.8 % Low 38.8-50.0 [facility] Comment on above: Performed By: #### C BC MG, CMP #### [address] Hemoglobin (Bld) [Mass/Vol] 11.7 g/dL Low 13.0-17.0 [facility] Comment on above: Performed By: #### C BC MG, CMP #### [address] Lymphocytes (Bld) [#/Vol] 0.6 10*3/uL Low 1.00-4.8 [facility] Comment on above: Performed By: #### C BC MG, CMP #### [address] Lymphocytes/100 WBC (Bld) 6.4 % Normal . [facility] Comment on above: Performed By: #### C BC MG, CMP #### [address] MCH (RBC) [Entitic mass] 30.8 pg Normal 27.5-35.2 [facility] Comment on above: Performed By: #### C BC, MG, CMP #### [address] MCV (RBC) [Entitic vol] 91.9 fL Normal 83.5-101 [facility] Comment on above: Performed By: #### C BC MG, CMP #### [facility] [address] Mean Corpuscular HGB Conc 33.5 g/dL Normal 32.5-35.6 [facility] Comment on above: Performed By: #### C BC, MG, CMP #### [facility] [address] Monocytes (Bld) [#/Vol] 1.1 10*3/uL High 0.0-0.8 [facility] Comment on above: Performed By: #### C BC, MG, CMP #### [facility] [address] Monocytes/100 WBC (Bld) 12.6 % Normal . [facility] Comment on above: Performed By: #### C BC, MG, CMP #### [facility] [address] Neutrophils (Bld) [#/Vol] 7.2 10*3/uL Normal 1.8-7.7 [facility] Comment on above: Performed By: #### C BC, MG, CMP #### [facility] [address] [place] [address] [place] Neutrophils/100 WBC (Bld) 79.2 % Normal . [facility] Comment on above: Performed By: #### C BC, MG, CMP #### [facility] [address] NRBC% 0.1 /100{WBC} Normal 0-0.5 [facility] Comment on above: Performed By: #### C BC, MG, CMP #### [facility] [address] Platelet mean volume (Bld) [Entitic vol] 7.5 fL Normal 6.6-10.1 [facility] Comment on above: Performed By: #### C BC, MG, CMP #### [facility] [address] [place] [address] [place] Platelets (Bld) [#/Vol] 236 10*3/uL Normal 150-450 [facility] Comment on above: Performed By: #### C BC, MG, CMP #### [facility] [address] [place] [address] RBC (Bld) [#/Vol] 3.79 10*6/uL Low 3.90-5.60 [facility] Comment on above: Performed By: #### C BC, MG, CMP #### [address] WBC (Bld) [#/Vol] 9.1 10*3/uL Normal 4.1-10.5 [facility] Comment on above: Performed By: #### C BC, MG, CMP #### [address] Comprehensive Metabolic Pane obdulio 08-16-2024 Albumin [Mass/Vol] 3.6 g/dL Normal 3.5-5.7 [facility] Comment on above: Performed By: #### C BC, MG, CMP #### [address] Albumin/Globulin [Mass ratio] 1.4 {ratio} Normal [facility] Comment on above: Performed By: #### C BC, MG, CMP #### [address] ALP [Catalytic activity/Vol] 73 U/L Normal 34-104 [facility] Comment on above: Performed By: #### C BC, MG, CMP #### [address] ALT [Catalytic activity/Vol] 14 U/L Normal 7-52 [facility] Comment on above: Performed By: #### C BC, MG, CMP #### [address] Anion gap [Moles/Vol] 10.5 mmol/L Normal 6.0-15.0 [facility] Comment on above: Performed By: #### C BC, MG, CMP #### [address] AST [Catalytic activity/Vol] 13 U/L Normal 13-39 [facility] Comment on above: Performed By: #### C BC, MG, CMP #### [facility] [address] [place] [address] [place] Bilirubin [Mass/Vol] 0.4 mg/dL Normal 0.3-1.0 [facility] Comment on above: Performed By: #### C BC, MG, CMP #### [facility] [address] [place] [address] [place] Calcium [Mass/Vol] 8.6 mg/dL Normal 8.6-10.3 [facility] Comment on above: Performed By: #### C BC, MG, CMP #### [facility] [address] [place] [address] [place] Chloride [Moles/Vol] 107 mmol/L Normal 98-107 [facility] Comment on above: Performed By: #### C BC, MG, CMP #### [facility] [address] [place] [address] [place] CO2 [Moles/Vol] 24.4 mmol/L Normal 21.0-31.0 [facility] Comment on above: Performed By: #### C BC, MG, CMP #### [facility] [address] [place] [address] [place] Creatinine [Mass/Vol] 0.83 mg/dL Normal 0.70-1.30 [facility] Comment on above: Performed By: #### C BC, MG, CMP #### [facility] [address] [place] [address] [place] Creatinine Clr Calc Pharmacy 59.79 Normal [facility] Comment on above: Result Comment: PERF ORMED BY: [place] [address] PATHOLOGIST BRA[employer] MAKER HEBER SHANNON M.D. Performed By: #### C BC, MG, CMP #### [facility] [address] [place] [address] [place] GFR/1.73 sq M.predicted MDRD (S/P/Bld) [Vol rate/Area] mL/min/{1.73_m2} Normal [facility] Comment on above: Performed By: #### C BC, MG, CMP #### [facility] [address] Globulin (S) [Mass/Vol] 2.6 g/dL Normal [facility] Comment on above: Performed By: #### C BC, MG, CMP #### [facility] [address] Glucose [Mass/Vol] 119 mg/dL High 70-100 [facility] Comment on above: Result Comment: [place] Glucose Reference Range is dependent on time and content of last meal. Glucose of more than 200 mg/dL in a nonstressed, ambulatory subject supports the diagnosis of Diabetes Mellitus. ADA recommended reference range Performed By: #### C BC, MG, CMP #### [address] Potassium [Moles/Vol] 3.9 mmol/L Normal 3.5-5.1 [facility] Comment on above: Performed By: #### C BC, MG, CMP #### [address] Protein [Mass/Vol] 6.2 g/dL Low 6.4-8.9 [facility] Comment on above: Performed By: #### C BC, MG, CMP #### [address] Sodium [Moles/Vol] 138 mmol/L Normal 136-145 [facility] Comment on above: Performed By: #### C BC, MG, CMP #### [address] Urea nitrogen [Mass/Vol] 19 mg/dL Normal 7-25 [facility] Comment on above: Performed By: #### C BC, MG, CMP #### [place] [address] [place] Creatinine [Mass/volume] in Serum or PlasmaOrdered By: Talib Faustin on 08-16-2024 Creatinine [Mass/Vol] Creatinine [Mass/v olume] in Serum or Plasma 0.70-1.30 [facility] Eosinophils Auto (Bld) [#/Vo l]Ordered By: rick Faustin on 08-16-2024 Eosinophils (Bld) [#/Vol] Automated eosinophil count 0.0-0.45 [facility] Eosinophils/100 WBC Auto (Bl d)Ordered By: rick Faustin on 08-16-2024 Eosinophils/100 WBC (Bld) Automated eosinophil % . [facility] Erythrocyte distribution wid th Auto (RBC) [Ratio]Ordered By: rick Faustin on 08-16-2024 Erythrocyte distribution width (RBC) [Ratio] Erythrocyte distribution width [Ratio] by Automated count High 12.0-14.8 [facility] Globulin Calc (S) [Mass/Vol] Ordered By: rick Faustin on 08-16-2024 Globulin (S) [Mass/Vol] Serum globulin measurement by calculation (mass/volume) [facility] Glucose [Mass/volume] in Ser um or PlasmaOrdered By: rick Faustin on 08-16-2024 Glucose [Mass/Vol] Glucose [Mass/volume ] in Serum or Plasma High 70-100 [facility] Comment on above: ADA recommended [...] of Blood by Automated count Low 38.8-50.0 [facility] Hemoglobin [Mass/volume] in BloodOrdered By: rick Faustin on 08-16-2024 Hemoglobin (Bld) [Mass/Vol] Hemoglobin [Mass/volume] in Blood Low 13.0-17.0 [facility] Leukocytes [#/volume] correc suzy for nucleated erythrocytes in Blood by Automated counOrdered By: Talib Faustin on 08-16-2024 WBC corrected for nucl RBC Auto (Bld) [#/Vol] Leukocytes [#/volume] corrected for nucleated erythrocytes in Blood by Automated coun 4.1-10.5 [facility] Lymphocytes Auto (Bld) [#/Vo l]Ordered By: Talib Faustin on 08-16-2024 Lymphocytes (Bld) [#/Vol] Lymphocytes [#/volume] in Blood by Automated count Low 1.00-4.8 [facility] Lymphocytes/100 WBC Auto (Bl d)Ordered By: rick Faustin on 08-16-2024 Lymphocytes/100 WBC (Bld) Lymphocytes/100 leukocytes in Blood by Automated count . [facility] MCH Auto (RBC) [Entitic mass ]Ordered By: rick Faustin on 08-16-2024 MCH (RBC) [Entitic mass] MCH [Entitic mass] by Automated count 27.5-35.2 [facility] MCHC Auto (RBC) [Mass/Vol]Or dered By: rick Faustin on 08-16-2024 MCHC (RBC) [Mass/Vol] MCHC [Mass/volume] by Automated count 32.5-35.6 [facility] MCV Auto (RBC) [Entitic vol] Ordered By: rick Faustin on 08-16-2024 MCV (RBC) [Entitic vol] MCV [Entitic volume] by Automated count 83.5-101 [facility] Monocytes Auto (Bld) [#/Vol] Ordered By: rick Faustin on 08-16-2024 Monocytes (Bld) [#/Vol] Automated blood monocyte count High 0.0-0.8 [facility] Monocytes/100 WBC Auto (Bld) Ordered By: rick Faustin on 08-16-2024 Monocytes/100 WBC (Bld) Automated monocyte % . [facility] Neutrophils Auto (Bld) [#/Vo l]Ordered By: Talib Faustin on 08-16-2024 Neutrophils (Bld) [#/Vol] Neutrophils [#/volume] in Blood by Automated count 1.8-7.7 [facility] Neutrophils/100 WBC Auto (Bl d)Ordered By: rick Faustin on 08-16-2024 Neutrophils/100 WBC (Bld) Automated neutrophil % . [facility] No Panel InformationOrdered By: Talib Faustin on 08-16-2024 Estimated GFR (CKD-EPI) > 60.0 mL/Min [facility] Creatinine Clearance (Chem 59.79 [facility] Nucleated erythrocytes [Pres ence] in Blood by Automated countOrdered By: Talib Faustin on 08-16-2024 Nucleated RBC Auto Ql (Bld) Nucleated erythrocytes [Presence] in Blood by Automated count 0-0.5 [facility] Platelet mean volume Auto (B ld) [Entitic vol]Ordered By: Talib Faustin on 08-16-2024 Platelet mean volume (Bld) [Entitic vol] Platelet mean volume [Entitic volume] in Blood by Automated count 6.6-10.1 [facility] Platelets Auto (Bld) [#/Vol] Ordered By: Talib Faustin on 08-16-2024 Platelets (Bld) [#/Vol] Platelets [#/volume] in Blood by Automated count 150-450 [facility] Potassium [Moles/volume] in Serum or PlasmaOrdered By: Talib Faustin on 08-16-2024 Potassium [Moles/Vol] Potassium [Moles/v olume] in Serum or Plasma 3.5-5.1 [facility] Protein [Mass/volume] in Ser um or PlasmaOrdered By: Talib Faustin on 08-16-2024 Protein [Mass/Vol] Protein [Mass/volume ] in Serum or Plasma Low 6.4-8.9 [facility] RBC Auto (Bld) [#/Vol]Ordere d By: Talib Faustin on 08-16-2024 RBC (Bld) [#/Vol] Erythrocytes [#/volu me] in Blood by Automated count Low 3.90-5.60 [facility] Serum or plasma albumin/glob ulin mass ratioOrdered By: Talib Faustin on 08-16-2024 Albumin/Globulin [Mass ratio] Serum or plasma albumin/globulin mass ratio [facility] Serum or plasma anion gap de terminationOrdered By: Talib Faustin on 08-16-2024 Anion gap [Moles/Vol] Serum or plasma an ion gap determination 6.0-15.0 [facility] Sodium [Moles/volume] in Ser um or PlasmaOrdered By: Talib Faustin on 08-16-2024 Sodium [Moles/Vol] Sodium [Moles/volume ] in Serum or Plasma 136-145 [facility] Urea nitrogen [Mass/volume] in Serum or PlasmaOrdered By: rick Faustin on 08-16-2024 Urea nitrogen [Mass/Vol] Urea nitrogen [Mass/volume] in Serum or Plasma 7-25 [facility] WBC Auto (Bld) [#/Vol]Ordere d By: rick Fasutin on 08-16-2024 WBC (Bld) [#/Vol] Leukocytes [#/volume ] in Blood by Automated count 4.1-10.5 [facility] Complete Blood Count Auto Di ffon 08-09-2024 Basophils (Bld) [#/Vol] 0.0 10*3/uL Normal 0.0-0.2 [facility] Comment on above: Result Comment: PERF ORMED BY: [place] [address] PATHOLOGIST BRAID MAKER HEBER SHANNON M.D. Performed By: #### C BC, CMP, MG #### [address] Basophils/100 WBC (Bld) 0.4 % Normal . [facility] Comment on above: Performed By: #### C BC, CMP, MG #### [address] Eosinophils (Bld) [#/Vol] 0.0 10*3/uL Normal 0.0-0.45 [facility] Comment on above: Performed By: #### C BC, CMP, MG #### [address] Eosinophils/100 WBC (Bld) 0.5 % Normal . [facility] Comment on above: Performed By: #### C BC, CMP, MG #### [address] Erythrocyte distribution width (RBC) [Ratio] 14.7 % Normal 12.0-14.8 [facility] Comment on above: Performed By: #### C BC, CMP, MG #### [address] Hematocrit (Bld) [Volume fraction] 36.9 % Low 38.8-50.0 [facility] Comment on above: Performed By: #### C BC, CMP, MG #### [address] Hemoglobin (Bld) [Mass/Vol] 12.4 g/dL Low 13.0-17.0 [facility] Comment on above: Performed By: #### C BC, CMP, MG #### [address] Lymphocytes (Bld) [#/Vol] 0.6 10*3/uL Low 1.00-4.8 [facility] Comment on above: Performed By: #### C BC, CMP, MG #### [address] Lymphocytes/100 WBC (Bld) 7.4 % Normal . [facility] Comment on above: Performed By: #### C BC, CMP, MG #### [address] MCH (RBC) [Entitic mass] 30.9 pg Normal 27.5-35.2 [facility] Comment on above: Performed By: #### C BC, CMP, MG #### [address] MCV (RBC) [Entitic vol] 92.2 fL Normal 83.5-101 [facility] Comment on above: Performed By: #### C BC, CMP, MG #### [address] Mean Corpuscular HGB Conc 33.6 g/dL Normal 32.5-35.6 [facility] Comment on above: Performed By: #### C BC, CMP, MG #### [facility] [address] [place] [address] [place] Monocytes (Bld) [#/Vol] 0.8 10*3/uL Normal 0.0-0.8 [facility] Comment on above: Performed By: #### C BC, CMP, MG #### [facility] [address] [place] [address] [place] Monocytes/100 WBC (Bld) 8.9 % Normal . [facility] Comment on above: Performed By: #### C BC, CMP, MG #### [facility] [address] [place] [address] [place] Neutrophils (Bld) [#/Vol] 7.2 10*3/uL Normal 1.8-7.7 [facility] Comment on above: Performed By: #### C BC, CMP, MG #### [facility] [address] [place] [address] [place] Neutrophils/100 WBC (Bld) 82.8 % Normal . [facility] Comment on above: Performed By: #### C BC, CMP, MG #### [facility] [address] [place] [address] [place] NRBC% 0.1 /100{WBC} Normal 0-0.5 [facility] Comment on above: Performed By: #### C BC, CMP, MG #### [facility] [address] [place] [address] [place] Platelet mean volume (Bld) [Entitic vol] 7.9 fL Normal 6.6-10.1 [facility] Comment on above: Performed By: #### C BC, CMP, MG #### [facility] [address] [place] [address] [place] Platelets (Bld) [#/Vol] 245 10*3/uL Normal 150-450 [facility] Comment on above: Performed By: #### C BC, CMP, MG #### [facility] [address] [place] [address] [place] RBC (Bld) [#/Vol] 4.00 10*6/uL Normal 3.90-5.60 [facility] Comment on above: Performed By: #### C BC, CMP, MG #### [address] WBC (Bld) [#/Vol] 8.7 10*3/uL Normal 4.1-10.5 [facility] Comment on above: Performed By: #### C BC, CMP, MG #### [address] Comprehensive Metabolic Pane obdulio 08-09-2024 Albumin [Mass/Vol] 3.7 g/dL Normal 3.5-5.7 [facility] Comment on above: Performed By: #### C BC, CMP, MG #### [address] Albumin/Globulin [Mass ratio] 1.2 {ratio} Normal [facility] Comment on above: Performed By: #### C BC, CMP, MG #### [address] ALP [Catalytic activity/Vol] 69 U/L Normal 34-104 [facility] Comment on above: Performed By: #### C BC, CMP, MG #### [address] ALT [Catalytic activity/Vol] 18 U/L Normal 7-52 [facility] Comment on above: Performed By: #### C BC, CMP, MG #### [address] Anion gap [Moles/Vol] 10.4 mmol/L Normal 6.0-15.0 [facility] Comment on above: Performed By: #### C BC, CMP, MG #### [address] AST [Catalytic activity/Vol] 18 U/L Normal 13-39 [facility] Comment on above: Performed By: #### C BC, CMP, MG #### [address] Bilirubin [Mass/Vol] 0.4 mg/dL Normal 0.3-1.0 [facility] Comment on above: Performed By: #### C BC, CMP, MG #### [facility] [address] Calcium [Mass/Vol] 9.4 mg/dL Normal 8.6-10.3 [facility] Comment on above: Performed By: #### C BC, CMP, MG #### [facility] [address] Chloride [Moles/Vol] 102 mmol/L Normal 98-107 [facility] Comment on above: Performed By: #### C BC, CMP, MG #### [facility] [address] [place] [address] [place] CO2 [Moles/Vol] 26.5 mmol/L Normal 21.0-31.0 [facility] Comment on above: Performed By: #### C BC, CMP, MG #### [facility] [address] [place] [address] [place] Creatinine [Mass/Vol] 0.91 mg/dL Normal 0.70-1.30 [facility] Comment on above: Performed By: #### C BC, CMP, MG #### [facility] [address] [place] [address] [place] Creatinine Clr Calc Pharmacy 54.53 Normal [facility] Comment on above: Result Comment: PERF ORMED BY: [place] [address] PATHOLOGIST BRAID MAKER HEBER SHANNON M.D. Performed By: #### C BC, CMP, MG #### [place] [address] [place] GFR/1.73 sq M.predicted MDRD (S/P/Bld) [Vol rate/Area] mL/min/{1.73_m2} Normal [facility] Comment on above: Performed By: #### C BC, CMP, MG #### [facility] [address] [place] [address] [place] Globulin (S) [Mass/Vol] 3.0 g/dL Normal [facility] Comment on above: Performed By: #### C BC, CMP, MG #### [address] Glucose [Mass/Vol] 163 mg/dL High 70-100 [facility] Comment on above: Result Comment: [facility] Glucose Reference Range is dependent on time and content of last meal. Glucose of more than 200 mg/dL in a nonstressed, ambulatory subject supports the diagnosis of Diabetes Mellitus. ADA recommended reference range Performed By: #### C BC, CMP, MG #### [address] Potassium [Moles/Vol] 3.9 mmol/L Normal 3.5-5.1 [facility] Comment on above: Performed By: #### C BC, CMP, MG #### [address] Protein [Mass/Vol] 6.7 g/dL Normal 6.4-8.9 [facility] Comment on above: Performed By: #### C BC, CMP, MG #### [address] Sodium [Moles/Vol] 135 mmol/L Low 136-145 [facility] Comment on above: Performed By: #### C BC, CMP, MG #### [address] Urea nitrogen [Mass/Vol] 31 mg/dL High 7-25 [facility] Comment on above: Performed By: #### C BC, CMP, MG #### [address] Complete Blood Count Auto Di ffon 08-02-2024 Basophils (Bld) [#/Vol] 0.1 10*3/uL Normal 0.0-0.2 [facility] Comment on above: Result Comment: PERF ORMED BY: [place] [address] PATHOLOGIST BRAID MAKER HEBER SHANNON M.D. Performed By: #### C BC, CMP #### [place] [address] [place] Basophils/100 WBC (Bld) 1.0 % Normal . [facility] Comment on above: Performed By: #### C BC, CMP #### [address] Eosinophils (Bld) [#/Vol] 0.0 10*3/uL Normal 0.0-0.45 [facility] Comment on above: Performed By: #### C BC, CMP #### [address] Eosinophils/100 WBC (Bld) 0.6 % Normal . [facility] Comment on above: Performed By: #### C FREDDY, CMP #### [address] Erythrocyte distribution width (RBC) [Ratio] 14.0 % Normal 12.0-14.8 [facility] Comment on above: Performed By: #### C BC, CMP #### [address] Hematocrit (Bld) [Volume fraction] 35.5 % Low 38.8-50.0 [facility] Comment on above: Performed By: #### C FREDDY, CMP #### [address] Hemoglobin (Bld) [Mass/Vol] 12.1 g/dL Low 13.0-17.0 [facility] Comment on above: Performed By: #### C BC, CMP #### [address] Lymphocytes (Bld) [#/Vol] 0.6 10*3/uL Low 1.00-4.8 [facility] Comment on above: Performed By: #### C BC, CMP #### [address] Lymphocytes/100 WBC (Bld) 10.3 % Normal . [facility] Comment on above: Performed By: #### C BC, CMP #### [address] MCH (RBC) [Entitic mass] 31.4 pg Normal 27.5-35.2 [facility] Comment on above: Performed By: #### C BC, CMP #### [address] MCV (RBC) [Entitic vol] 92.2 fL Normal 83.5-101 [facility] Comment on above: Performed By: #### C BC, CMP #### [address] Mean Corpuscular HGB Conc 34.0 g/dL Normal 32.5-35.6 [facility] Comment on above: Performed By: #### C BC, CMP #### [address] Monocytes (Bld) [#/Vol] 0.9 10*3/uL High 0.0-0.8 [facility] Comment on above: Performed By: #### C BC, CMP #### [address] Monocytes/100 WBC (Bld) 14.8 % Normal . [facility] Comment on above: Performed By: #### C BC, CMP #### [address] Neutrophils (Bld) [#/Vol] 4.5 10*3/uL Normal 1.8-7.7 [facility] Comment on above: Performed By: #### C BC, CMP #### [address] Neutrophils/100 WBC (Bld) 73.3 % Normal . [facility] Comment on above: Performed By: #### C BC, CMP #### [address] NRBC% 0.1 /100{WBC} Normal 0-0.5 [facility] Comment on above: Performed By: #### C BC, CMP #### [address] Platelet mean volume (Bld) [Entitic vol] 7.4 fL Normal 6.6-10.1 [facility] Comment on above: Performed By: #### C BC, CMP #### [address] Platelets (Bld) [#/Vol] 215 10*3/uL Normal 150-450 [facility] Comment on above: Performed By: #### C BC, CMP #### [address] RBC (Bld) [#/Vol] 3.85 10*6/uL Low 3.90-5.60 [facility] Comment on above: Performed By: #### C BC, CMP #### [address] WBC (Bld) [#/Vol] 6.2 10*3/uL Normal 4.1-10.5 [facility] Comment on above: Performed By: #### C BC, CMP #### [address] Comprehensive Metabolic Pane obdulio 08-02-2024 Albumin [Mass/Vol] 3.6 g/dL Normal 3.5-5.7 [facility] Comment on above: Performed By: #### C BC, CMP #### [address] Albumin/Globulin [Mass ratio] 1.3 {ratio} Normal [facility] Comment on above: Performed By: #### C BC, CMP #### [address] ALP [Catalytic activity/Vol] 75 U/L Normal 34-104 [facility] Comment on above: Performed By: #### C BC, CMP #### [address] ALT [Catalytic activity/Vol] 12 U/L Normal 7-52 [facility] Comment on above: Performed By: #### C BC, CMP #### [address] Anion gap [Moles/Vol] 10.1 mmol/L Normal 6.0-15.0 [facility] Comment on above: Performed By: #### C BC, CMP #### [facility] [address] AST [Catalytic activity/Vol] 13 U/L Normal 13-39 [facility] Comment on above: Performed By: #### C BC, CMP #### [facility] [address] Bilirubin [Mass/Vol] 0.5 mg/dL Normal 0.3-1.0 [facility] Comment on above: Performed By: #### C BC, CMP #### [facility] [address] Calcium [Mass/Vol] 8.5 mg/dL Low 8.6-10.3 [facility] Comment on above: Performed By: #### C BC, CMP #### [facility] [address] [place] [address] [place] Chloride [Moles/Vol] 103 mmol/L Normal 98-107 [facility] Comment on above: Performed By: #### C BC, CMP #### [facility] [address] [place] [address] [place] CO2 [Moles/Vol] 27.1 mmol/L Normal 21.0-31.0 [facility] Comment on above: Performed By: #### C BC, CMP #### [facility] [address] [place] [address] [place] Creatinine [Mass/Vol] 1.03 mg/dL Normal 0.70-1.30 [facility] Comment on above: Performed By: #### C BC, CMP #### [place] [address] [place] Creatinine Clr Calc Pharmacy 48.18 Normal [facility] Comment on above: Result Comment: PERF ORMED BY: [place] [address] PATHOLOGIST BRAID MAKER HEBER SHANNON M.D. Performed By: #### C BC, CMP #### [place] [id number] [place] GFR/1.73 sq M.predicted MDRD (S/P/Bld) [Vol rate/Area] mL/min/{1.73_m2} Normal [facility] Comment on above: Performed By: #### C BC, CMP #### [address] Globulin (S) [Mass/Vol] 2.7 g/dL Normal [facility] Comment on above: Performed By: #### C BC, CMP #### [address] Glucose [Mass/Vol] 120 mg/dL High 70-100 [facility] Comment on above: Result Comment: [facility] Glucose Reference Range is dependent on time and content of last meal. Glucose of more than 200 mg/dL in a nonstressed, ambulatory subject supports the diagnosis of Diabetes Mellitus. ADA recommended reference range Performed By: #### C BC, CMP #### [address] Potassium [Moles/Vol] 4.2 mmol/L Normal 3.5-5.1 [facility] Comment on above: Performed By: #### C BC, CMP #### [address] Protein [Mass/Vol] 6.3 g/dL Low 6.4-8.9 [facility] Comment on above: Performed By: #### C BC, CMP #### [address] Sodium [Moles/Vol] 136 mmol/L Normal 136-145 [facility] Comment on above: Performed By: #### C BC, CMP #### [address] Urea nitrogen [Mass/Vol] 35 mg/dL High 7-25 [facility] Comment on above: Performed By: #### C BC, CMP #### [address] Alanine aminotransferase [En zymatic activity/volume] in Serum or PlasmaOrdered By: Talib Faustin on 07-26-2024 ALT [Catalytic activity/Vol] Alanine aminotransferase [Enzymatic activity/volume] in Serum or Plasma 7-52 [facility] Albumin [Mass/volume] in Ser um or Plasma by Bromocresol green (BCG) dye binding methoOrdered By: Talib Faustin on 07-26-2024 Albumin BCG dye [Mass/Vol] Albumin [Mass/volume] in Serum or Plasma by Bromocresol green (BCG) dye binding metho 3.5-5.7 [facility] Alkaline phosphatase [Enzyma tic activity/volume] in Serum or PlasmaOrdered By: Talib Faustin on 07-26-2024 ALP [Catalytic activity/Vol] Alkaline phosphatase [Enzymatic activity/volume] in Serum or Plasma 34-104 [facility] Aspartate aminotransferase [ Enzymatic activity/volume] in Serum or PlasmaOrdered By: Talib Faustin on 07-26-2024 AST [Catalytic activity/Vol] Aspartate aminotransferase [Enzymatic activity/volume] in Serum or Plasma 13-39 [facility] Basophils Auto (Bld) [#/Vol] Ordered By: Talib Faustin on 07-26-2024 Basophils (Bld) [#/Vol] Automated basophil count 0.0-0.2 [facility] Basophils/100 WBC Auto (Bld) Ordered By: rick Faustin on 07-26-2024 Basophils/100 WBC (Bld) Automated basophil % . [facility] Bilirubin.total [Mass/volume ] in Serum or PlasmaOrdered By: Talib Faustin on 07-26-2024 Bilirubin [Mass/Vol] Bilirubin.total [Mass/volume] in Serum or Plasma 0.3-1.0 [facility] Calcium [Mass/volume] in Ser um or PlasmaOrdered By: Talib Faustin on 07-26-2024 Calcium [Mass/Vol] Calcium [Mass/volume ] in Serum or Plasma 8.6-10.3 [facility] Carbon dioxide, total [Moles /volume] in Serum or PlasmaOrdered By: Talib Hargrove on 07-26-2024 CO2 [Moles/Vol] Carbon dioxide, tota l [Moles/volume] in Serum or Plasma 21.0-31.0 [facility] Chloride [Moles/volume] in S stephanie or PlasmaOrdered By: Talib Faustin on 07-26-2024 Chloride [Moles/Vol] Chloride [Moles/vol ume] in Serum or Plasma 98-107 [facility] Complete Blood Count Auto Di ffon 07-26-2024 Basophils (Bld) [#/Vol] 0.1 10*3/uL Normal 0.0-0.2 [facility] Comment on above: Result Comment: PERF ORMED BY: [place] [address] PATHOLOGIST BRAID MAKER HEBER SHANNON M.D. Performed By: #### C BC, MG, CMP #### [address] Basophils/100 WBC (Bld) 1.0 % Normal . [facility] Comment on above: Performed By: #### C BC, MG, CMP #### [address] Eosinophils (Bld) [#/Vol] 0.1 10*3/uL Normal 0.0-0.45 [facility] Comment on above: Performed By: #### C BC, MG, CMP #### [address] Eosinophils/100 WBC (Bld) 1.4 % Normal . [facility] Comment on above: Performed By: #### C BC, MG, CMP #### [address] Erythrocyte distribution width (RBC) [Ratio] 13.6 % Normal 12.0-14.8 [facility] Comment on above: Performed By: #### C BC, MG, CMP #### [address] Hematocrit (Bld) [Volume fraction] 35.4 % Low 38.8-50.0 [facility] Comment on above: Performed By: #### C BC, MG, CMP #### [address] Hemoglobin (Bld) [Mass/Vol] 12.0 g/dL Low 13.0-17.0 [facility] Comment on above: Performed By: #### C BC, MG, CMP #### [address] Lymphocytes (Bld) [#/Vol] 0.9 10*3/uL Low 1.00-4.8 [facility] Comment on above: Performed By: #### C BC, MG, CMP #### [address] Lymphocytes/100 WBC (Bld) 13.0 % Normal . [facility] Comment on above: Performed By: #### C BC, MG, CMP #### [address] MCH (RBC) [Entitic mass] 31.1 pg Normal 27.5-35.2 [facility] Comment on above: Performed By: #### C BC, MG, CMP #### [address] MCV (RBC) [Entitic vol] 91.5 fL Normal 83.5-101 [facility] Comment on above: Performed By: #### C BC, MG, CMP #### [address] Mean Corpuscular HGB Conc 34.0 g/dL Normal 32.5-35.6 [facility] Comment on above: Performed By: #### C BC, MG, CMP #### [place] [address] [place] Monocytes (Bld) [#/Vol] 0.7 10*3/uL Normal 0.0-0.8 [facility] Comment on above: Performed By: #### C BC, MG, CMP #### [place] [address] [place] Monocytes/100 WBC (Bld) 9.8 % Normal . [facility] Comment on above: Performed By: #### C BC, MG, CMP #### [facility] [address] Neutrophils (Bld) [#/Vol] 5.1 10*3/uL Normal 1.8-7.7 [facility] Comment on above: Performed By: #### C BC, MG, CMP #### [facility] [address] Neutrophils/100 WBC (Bld) 74.8 % Normal . [facility] Comment on above: Performed By: #### C BC, MG, CMP #### [facility] [address] NRBC% 0.1 /100{WBC} Normal 0-0.5 [facility] Comment on above: Performed By: #### C BC, MG, CMP #### [facility] [address] Platelet mean volume (Bld) [Entitic vol] 7.4 fL Normal 6.6-10.1 [facility] Comment on above: Performed By: #### C BC, MG, CMP #### [facility] [address] [place] [address] [place] Platelets (Bld) [#/Vol] 217 10*3/uL Normal 150-450 [facility] Comment on above: Performed By: #### C BC, MG, CMP #### [facility] [address] [place] [address] [place] RBC (Bld) [#/Vol] 3.87 10*6/uL Low 3.90-5.60 [facility] Comment on above: Performed By: #### C BC, MG, CMP #### [facility] [address] [place] [address] [place] WBC (Bld) [#/Vol] 6.9 10*3/uL Normal 4.1-10.5 [facility] Comment on above: Performed By: #### C BC, MG, CMP #### [facility] [address] Comprehensive Metabolic Pane obdulio 07-26-2024 Albumin [Mass/Vol] 3.7 g/dL Normal 3.5-5.7 [facility] Comment on above: Performed By: #### C BC, MG, CMP #### [address] Albumin/Globulin [Mass ratio] 1.3 {ratio} Normal [facility] Comment on above: Performed By: #### C BC, MG, CMP #### [address] ALP [Catalytic activity/Vol] 80 U/L Normal 34-104 [facility] Comment on above: Performed By: #### C BC, MG, CMP #### [address] ALT [Catalytic activity/Vol] 13 U/L Normal 7-52 [facility] Comment on above: Performed By: #### C BC, MG, CMP #### [address] Anion gap [Moles/Vol] 9.4 mmol/L Normal 6.0-15.0 [facility] Comment on above: Performed By: #### C BC, MG, CMP #### [address] AST [Catalytic activity/Vol] 14 U/L Normal 13-39 [facility] Comment on above: Performed By: #### C BC, MG, CMP #### [address] Bilirubin [Mass/Vol] 0.5 mg/dL Normal 0.3-1.0 [facility] Comment on above: Performed By: #### C BC, MG, CMP #### [address] Calcium [Mass/Vol] 8.9 mg/dL Normal 8.6-10.3 [facility] Comment on above: Performed By: #### C BC, MG, CMP #### [address] Chloride [Moles/Vol] 104 mmol/L Normal 98-107 [facility] Comment on above: Performed By: #### C BC, MG, CMP #### [facility] [address] CO2 [Moles/Vol] 26.8 mmol/L Normal 21.0-31.0 [facility] Comment on above: Performed By: #### C BC, MG, CMP #### [facility] [address] Creatinine [Mass/Vol] 0.87 mg/dL Normal 0.70-1.30 [facility] Comment on above: Performed By: #### C BC, MG, CMP #### [facility] [address] Creatinine Clr Calc Pharmacy 57.04 Normal [facility] Comment on above: Result Comment: PERF ORMED BY: [place] [address] PATHOLOGIST BRAID MAKER HEBER SHANNON M.D. Performed By: #### C BC, MG, CMP #### [address] GFR/1.73 sq M.predicted MDRD (S/P/Bld) [Vol rate/Area] mL/min/{1.73_m2} Normal [facility] Comment on above: Performed By: #### C BC, MG, CMP #### [place] [address] [place] Globulin (S) [Mass/Vol] 2.9 g/dL Normal [facility] Comment on above: Performed By: #### C BC, MG, CMP #### [facility] [address] Glucose [Mass/Vol] 107 mg/dL High 70-100 [facility] Comment on above: Result Comment: [place] Glucose Reference Range is dependent on time and content of last meal. Glucose of more than 200 mg/dL in a nonstressed, ambulatory subject supports the diagnosis of Diabetes Mellitus. ADA recommended reference range Performed By: #### C BC, MG, CMP #### [facility] [address] Potassium [Moles/Vol] 4.2 mmol/L Normal 3.5-5.1 [facility] Comment on above: Performed By: #### C BC, MG, CMP #### [facility] [address] Protein [Mass/Vol] 6.6 g/dL Normal 6.4-8.9 [facility] Comment on above: Performed By: #### C BC, MG, CMP #### [facility] [address] Sodium [Moles/Vol] 136 mmol/L Normal 136-145 [facility] Comment on above: Performed By: #### C BC, MG, CMP #### [facility] [address] Urea nitrogen [Mass/Vol] 30 mg/dL High 7-25 [facility] Comment on above: Performed By: #### C BC, MG, CMP #### [facility] [address] Creatinine [Mass/volume] in Serum or PlasmaOrdered By: Talib Faustin on 07-26-2024 Creatinine [Mass/Vol] Creatinine [Mass/v olume] in Serum or Plasma 0.70-1.30 [facility] Eosinophils Auto (Bld) [#/Vo l]Ordered By: Talib Faustin on 07-26-2024 Eosinophils (Bld) [#/Vol] Automated eosinophil count 0.0-0.45 [facility] Eosinophils/100 WBC Auto (Bl d)Ordered By: Talib Faustin on 07-26-2024 Eosinophils/100 WBC (Bld) Automated eosinophil % . [facility] Erythrocyte distribution wid th Auto (RBC) [Ratio]Ordered By: Talib Faustin on 07-26-2024 Erythrocyte distribution width (RBC) [Ratio] Erythrocyte distribution width [Ratio] by Automated count 12.0-14.8 [facility] Globulin Calc (S) [Mass/Vol] Ordered By: Talib Faustin on 07-26-2024 Globulin (S) [Mass/Vol] Serum globulin measurement by calculation (mass/volume) [facility] Glucose [Mass/volume] in Ser um or PlasmaOrdered By: Talib Lamasethan on 07-26-2024 Glucose [Mass/Vol] Glucose [Mass/volume ] in Serum or Plasma High 70-100 [facility] Comment on above: ADA recommended [...] of Blood by Automated count Low 38.8-50.0 [facility] Hemoglobin [Mass/volume] in BloodOrdered By: Talib Faustin on 07-26-2024 Hemoglobin (Bld) [Mass/Vol] Hemoglobin [Mass/volume] in Blood Low 13.0-17.0 [facility] Leukocytes [#/volume] correc suzy for nucleated erythrocytes in Blood by Automated counOrdered By: Talib Faustin on 07-26-2024 WBC corrected for nucl RBC Auto (Bld) [#/Vol] Leukocytes [#/volume] corrected for nucleated erythrocytes in Blood by Automated coun 4.1-10.5 [facility] Lymphocytes Auto (Bld) [#/Vo l]Ordered By: Talib Faustin on 07-26-2024 Lymphocytes (Bld) [#/Vol] Lymphocytes [#/volume] in Blood by Automated count Low 1.00-4.8 [facility] Lymphocytes/100 WBC Auto (Bl d)Ordered By: Talib Faustin on 07-26-2024 Lymphocytes/100 WBC (Bld) Lymphocytes/100 leukocytes in Blood by Automated count . [facility] MCH Auto (RBC) [Entitic mass ]Ordered By: Talib Faustin on 07-26-2024 MCH (RBC) [Entitic mass] MCH [Entitic mass] by Automated count 27.5-35.2 [facility] MCHC Auto (RBC) [Mass/Vol]Or dered By: Talib Faustin on 07-26-2024 MCHC (RBC) [Mass/Vol] MCHC [Mass/volume] by Automated count 32.5-35.6 [facility] MCV Auto (RBC) [Entitic vol] Ordered By: Talib Faustin on 07-26-2024 MCV (RBC) [Entitic vol] MCV [Entitic volume] by Automated count 83.5-101 [facility] Monocytes Auto (Bld) [#/Vol] Ordered By: Talib Faustin on 07-26-2024 Monocytes (Bld) [#/Vol] Automated blood monocyte count 0.0-0.8 [facility] Monocytes/100 WBC Auto (Bld) Ordered By: Talib Faustin on 07-26-2024 Monocytes/100 WBC (Bld) Automated monocyte % . [facility] Neutrophils Auto (Bld) [#/Vo l]Ordered By: Talib Faustin on 07-26-2024 Neutrophils (Bld) [#/Vol] Neutrophils [#/volume] in Blood by Automated count 1.8-7.7 [facility] Neutrophils/100 WBC Auto (Bl d)Ordered By: Talib Faustin on 07-26-2024 Neutrophils/100 WBC (Bld) Automated neutrophil % . [facility] No Panel InformationOrdered By: Talib Faustin on 07-26-2024 Estimated GFR (CKD-EPI) > 60.0 mL/Min [facility] Creatinine Clearance (Chem 57.04 [facility] Nucleated erythrocytes [Pres ence] in Blood by Automated countOrdered By: Talib Faustin on 07-26-2024 Nucleated RBC Auto Ql (Bld) Nucleated erythrocytes [Presence] in Blood by Automated count 0-0.5 [facility] Platelet mean volume Auto (B ld) [Entitic vol]Ordered By: Talib Faustin on 07-26-2024 Platelet mean volume (Bld) [Entitic vol] Platelet mean volume [Entitic volume] in Blood by Automated count 6.6-10.1 [facility] Platelets Auto (Bld) [#/Vol] Ordered By: Talib Faustin on 07-26-2024 Platelets (Bld) [#/Vol] Platelets [#/volume] in Blood by Automated count 150-450 [facility] Potassium [Moles/volume] in Serum or PlasmaOrdered By: Talib Faustin on 07-26-2024 Potassium [Moles/Vol] Potassium [Moles/v olume] in Serum or Plasma 3.5-5.1 [facility] Protein [Mass/volume] in Ser um or PlasmaOrdered By: Talib Faustin on 07-26-2024 Protein [Mass/Vol] Protein [Mass/volume ] in Serum or Plasma 6.4-8.9 [facility] RBC Auto (Bld) [#/Vol]Ordere d By: Talib Faustin on 07-26-2024 RBC (Bld) [#/Vol] Erythrocytes [#/volu me] in Blood by Automated count Low 3.90-5.60 [facility] Serum or plasma albumin/glob ulin mass ratioOrdered By: Talib Faustin on 07-26-2024 Albumin/Globulin [Mass ratio] Serum or plasma albumin/globulin mass ratio [facility] Serum or plasma anion gap de terminationOrdered By: Talib Faustin on 07-26-2024 Anion gap [Moles/Vol] Serum or plasma an ion gap determination 6.0-15.0 [facility] Sodium [Moles/volume] in Ser um or PlasmaOrdered By: Talib Faustin on 07-26-2024 Sodium [Moles/Vol] Sodium [Moles/volume ] in Serum or Plasma 136-145 [facility] Urea nitrogen [Mass/volume] in Serum or PlasmaOrdered By: Talib Faustin on 07-26-2024 Urea nitrogen [Mass/Vol] Urea nitrogen [Mass/volume] in Serum or Plasma High 7-25 [facility] WBC Auto (Bld) [#/Vol]Ordere d By: Talib Faustin on 07-26-2024 WBC (Bld) [#/Vol] Leukocytes [#/volume ] in Blood by Automated count 4.1-10.5 [facility] Complete Blood Count Auto Di ffon 07-19-2024 Basophils (Bld) [#/Vol] 0.0 10*3/uL Normal 0.0-0.2 [facility] Comment on above: Result Comment: PERF ORMED BY: [place] [address] PATHOLOGIST BRAID MAKER HEBER SHANNON M.D. Performed By: #### M G, CMP, CBC #### [address] Performed By: #### C BC, MG, CMP #### [address] Basophils/100 WBC (Bld) 0.5 % Normal . [facility] Comment on above: Performed By: #### M G, CMP, CBC #### [address] Performed By: #### C BC, MG, CMP #### [address] Eosinophils (Bld) [#/Vol] 0.1 10*3/uL Normal 0.0-0.45 [facility] Comment on above: Performed By: #### M G, CMP, CBC #### [address] Performed By: #### C BC, MG, CMP #### [address] Eosinophils/100 WBC (Bld) 1.4 % Normal . [facility] Comment on above: Performed By: #### M G, CMP, CBC #### [address] Performed By: #### C BC, MG, CMP #### [address] Erythrocyte distribution width (RBC) [Ratio] 13.4 % Normal 12.0-14.8 [facility] Comment on above: Performed By: #### M G, CMP, CBC #### [address] Performed By: #### C BC, MG, CMP #### [address] Hematocrit (Bld) [Volume fraction] 35.7 % Low 38.8-50.0 [facility] Comment on above: Performed By: #### M G, CMP, CBC #### [address] Performed By: #### C BC, MG, CMP #### [address] Hemoglobin (Bld) [Mass/Vol] 12.0 g/dL Low 13.0-17.0 [facility] Comment on above: Performed By: #### M G, CMP, CBC #### [address] Performed By: #### C BC, MG, CMP #### [address] Lymphocytes (Bld) [#/Vol] 1.3 10*3/uL Normal 1.00-4.8 [facility] Comment on above: Performed By: #### M G, CMP, CBC #### [address] Performed By: #### C BC, MG, CMP #### [address] Lymphocytes/100 WBC (Bld) 11.6 % Normal . [facility] Comment on above: Performed By: #### M G, CMP, CBC #### [address] Performed By: #### C BC, MG, CMP #### [address] MCH (RBC) [Entitic mass] 30.7 pg Normal 27.5-35.2 [facility] Comment on above: Performed By: #### M G, CMP, CBC #### [address] Performed By: #### C BC, MG, CMP #### [address] MCV (RBC) [Entitic vol] 91.3 fL Normal 83.5-101 [facility] Comment on above: Performed By: #### M G, CMP, CBC #### [address] Performed By: #### C BC, MG, CMP #### [address] Mean Corpuscular HGB Conc 33.7 g/dL Normal 32.5-35.6 [facility] Comment on above: Performed By: #### M G, CMP, CBC #### [address] Performed By: #### C BC, MG, CMP #### [address] Monocytes (Bld) [#/Vol] 0.8 10*3/uL Normal 0.0-0.8 [facility] Comment on above: Performed By: #### M G, CMP, CBC #### [address] Performed By: #### C BC, MG, CMP #### [address] Monocytes/100 WBC (Bld) 7.4 % Normal . [facility] Comment on above: Performed By: #### M G, CMP, CBC #### [address] Performed By: #### C BC, MG, CMP #### [address] Neutrophils (Bld) [#/Vol] 8.7 10*3/uL High 1.8-7.7 [facility] Comment on above: Performed By: #### M G, CMP, CBC #### [place] [address] Performed By: #### C BC, MG, CMP #### [address] Neutrophils/100 WBC (Bld) 79.1 % Normal . [facility] Comment on above: Performed By: #### M G, CMP, CBC #### [address] Performed By: #### C BC, MG, CMP #### [address] NRBC% 0.1 /100{WBC} Normal 0-0.5 [facility] Comment on above: Performed By: #### M G, CMP, CBC #### [address] Performed By: #### C BC, MG, CMP #### [address] Platelet mean volume (Bld) [Entitic vol] 7.9 fL Normal 6.6-10.1 [facility] Comment on above: Performed By: #### M G, CMP, CBC #### [address] Performed By: #### C BC, MG, CMP #### [address] Platelets (Bld) [#/Vol] 179 10*3/uL Normal 150-450 [facility] Comment on above: Performed By: #### M G, CMP, CBC #### [address] Performed By: #### C BC, MG, CMP #### [address] RBC (Bld) [#/Vol] 3.91 10*6/uL Normal 3.90-5.60 [facility] Comment on above: Performed By: #### M G, CMP, CBC #### [address] Performed By: #### C BC, MG, CMP #### [facility] [address] [place] [address] WBC (Bld) [#/Vol] 11.0 10*3/uL High 4.1-10.5 [facility] Comment on above: Performed By: #### M G, CMP, CBC #### [facility] [address] [place] [address] Performed By: #### C BC, MG, CMP #### [facility] [address] [place] [address] Comprehensive Metabolic Pane obdulio 07-19-2024 Albumin [Mass/Vol] 3.8 g/dL Normal 3.5-5.7 [facility] Comment on above: Performed By: #### M G, CMP, CBC #### [address] Performed By: #### C BC, MG, CMP #### [address] Albumin/Globulin [Mass ratio] 1.5 {ratio} Normal [facility] Comment on above: Performed By: #### M G, CMP, CBC #### [facility] [address] [place] [address] Performed By: #### C BC, MG, CMP #### [address] ALP [Catalytic activity/Vol] 84 U/L Normal 34-104 [facility] Comment on above: Performed By: #### M G, CMP, CBC #### [facility] [address] [place] [address] Performed By: #### C BC, MG, CMP #### [facility] [address] [place] [address] ALT [Catalytic activity/Vol] 12 U/L Normal 7-52 [facility] Comment on above: Performed By: #### M G, CMP, CBC #### [facility] [address] [place] [address] Performed By: #### C BC, MG, CMP #### [facility] [address] [place] [address] Anion gap [Moles/Vol] 10.1 mmol/L Normal 6.0-15.0 [facility] Comment on above: Performed By: #### M G, CMP, CBC #### [facility] [address] [place] [address] Performed By: #### C BC, MG, CMP #### [address] AST [Catalytic activity/Vol] 11 U/L Low 13-39 [facility] Comment on above: Performed By: #### M G, CMP, CBC #### [facility] [address] [place] [address] Performed By: #### C BC, MG, CMP #### [address] Bilirubin [Mass/Vol] 0.6 mg/dL Normal 0.3-1.0 [facility] Comment on above: Performed By: #### M G, CMP, CBC #### [facility] [address] [place] [address] Performed By: #### C BC, MG, CMP #### [address] Calcium [Mass/Vol] 9.2 mg/dL Normal 8.6-10.3 [facility] Comment on above: Performed By: #### M G, CMP, CBC #### [facility] [address] [place] [address] Performed By: #### C BC, MG, CMP #### [facility] [address] [place] [address] Chloride [Moles/Vol] 107 mmol/L Normal 98-107 [facility] Comment on above: Performed By: #### M G, CMP, CBC #### [facility] [address] [place] [address] Performed By: #### C BC, MG, CMP #### [facility] [address] [place] [address] CO2 [Moles/Vol] 25.1 mmol/L Normal 21.0-31.0 [facility] Comment on above: Performed By: #### M G, CMP, CBC #### [address] Performed By: #### C BC, MG, CMP #### [address] Creatinine [Mass/Vol] 0.95 mg/dL Normal 0.70-1.30 [facility] Comment on above: Performed By: #### M G, CMP, CBC #### [address] Performed By: #### C BC, MG, CMP #### [address] Creatinine Clr Calc Pharmacy 56.56 Normal [facility] Comment on above: Performed By: #### M G, CMP, CBC #### [address] Performed By: #### C BC, MG, CMP #### [address] GFR/1.73 sq M.predicted MDRD (S/P/Bld) [Vol rate/Area] mL/min/{1.73_m2} Normal [facility] Comment on above: Performed By: #### M G, CMP, CBC #### [facility] [address] [place] [address] Performed By: #### C BC, MG, CMP #### [address] Globulin (S) [Mass/Vol] 2.6 g/dL Normal [facility] Comment on above: Performed By: #### M G, CMP, CBC #### [address] Performed By: #### C BC, MG, CMP #### [address] Glucose [Mass/Vol] 115 mg/dL High 70-100 [facility] Comment on above: Result Comment: [place] Glucose Reference Range is dependent on time and content of last meal. Glucose of more than 200 mg/dL in a nonstressed, ambulatory subject supports the diagnosis of Diabetes Mellitus. ADA recommended reference range Performed By: #### M G, CMP, CBC #### [address] Performed By: #### C BC, MG, CMP #### [address] Potassium [Moles/Vol] 4.2 mmol/L Normal 3.5-5.1 [facility] Comment on above: Performed By: #### M G, CMP, CBC #### [address] Performed By: #### C BC, MG, CMP #### [address] Protein [Mass/Vol] 6.4 g/dL Normal 6.4-8.9 [facility] Comment on above: Performed By: #### M G, CMP, CBC #### [address] Performed By: #### C BC, MG, CMP #### [address] Sodium [Moles/Vol] 138 mmol/L Normal 136-145 [facility] Comment on above: Performed By: #### M G, CMP, CBC #### [address] Performed By: #### C BC, MG, CMP #### [place] [address] [place] Urea nitrogen [Mass/Vol] 30 mg/dL High 7-25 [facility] Comment on above: Performed By: #### M G, CMP, CBC #### [address] Performed By: #### C BC, MG, CMP #### [address] [place] [address] [place] Magnesiumon 07-19-2024 Magnesium [Mass/Vol] 1.8 mg/dL Low 1.9-2.7 [facility] Comment on above: Result Comment: PERF ORMED BY: [facility] [address] [place] [address] PATHOLOGIST BRAID MAKER HEBER SHANNON M.D. Performed By: #### M G, CMP, CBC #### [facility] [address] Performed By: #### C BC, MG, CMP #### [facility] [address] Magnesium [Mass/volume] in S stephanie or PlasmaOrdered By: Talib Faustin on 07-19-2024 Magnesium [Mass/Vol] Magnesium [Mass/vol ume] in Serum or Plasma Low 1.9-2.7 [facility] Office Visiton 07-19-2024 Follow-up visit [id number] [address] P 1940 M Date Provider Department Center 07/19/2024 BOY SON [facility] Family History Problem Relation Age of Onset Coronary artery disease Mother Kidney disease Mother Heart failure Mother Family Status - Relation Status Age at Mother Level of Service:[address] [place] POSTOP FOLLOW UP VISIT RELATED TO ORIGINAL PX Normal [facility] GLUCOSE POCT GLUCOMETERSon 0 07-17-2024 COMMEMT1 Glu2: Cleaned Meter [facility] [employer] Glucose [Mass/Vol] 107 mg/dL [facility] Comment on above: Random Glucose Refer ence Range is dependent on time and content of last meal. Glucose of more than 200 mg/dL in a nonstressed, ambulatory subject supports the diagnosis of Diabetes Mellitus. [facility] [employer] Glucose Glucometer (BldC) [M ass/Vol]Ordered By: Matteo Melo on 07-17-2024 Glucose [Mass/Vol] Capillary blood gluc ose measurement by glucometer (mass/volume) [facility] Comment on above: Random Glucose Refer ence Range is dependent on time and content of last meal. Glucose of more than 200 mg/dL in a nonstressed, ambulatory subject supports the diagnosis of Diabetes Mellitus. Glucose Poct Glucometerson 0 07-17-2024 Commemt1 Glu2: Cleaned Meter Normal [facility] Comment on above: Result Comment: PERF ORMED BY: [place] [address] PATHOLOGIST BRAID MAKER HEBER SHANNON M.D. Performed By: #### G LULS #### Point of Care testing , Performed By: #### C BC, MG, CMP #### [address] Glucose [Mass/Vol] 107 mg/dL Normal [facility] Comment on above: Result Comment: [place] Glucose Reference Range is dependent on time and content of last meal. Glucose of more than 200 mg/dL in a nonstressed, ambulatory subject supports the diagnosis of Diabetes Mellitus. Performed By: #### G LULS #### Point of Care testing , Performed By: #### C BC, MG, CMP #### [facility] [address] [place] [address] No Panel InformationOrdered By: Matteo Melo on 07-17-2024 Bedside Glucose Comment Glu2: cleaned meter [facility] X-ray reportOrdered By: Bruno Urias on 07-17-2024 Study report [facility] Main [place] [address] [place] [address] XRay Report Signed Patient: Jeremie Bennett MR#: [id number] : 1940 Acct:[id number] Age/Sex: 83 / M ADM Date: 5 Loc: [place] Room: Type: [facility] Attending Dr: Matteo Melo MD [...] PM Dictation Location: RADIO-PC-22 Transcribed By: PWS 07/17/241406 Dictated By: Mario Urias Jr, DO 07/17/241406 Signed By: 07/17/24 140[place]chell [facility] XR chest 1V portableon 07-17 XR chest 1V portable [facility] [place] [address] XRay Report Signed Patient: Jeremie Bennett MR#: [id number] : 1940 Acct:[id number] Age/Sex: 83 / M ADM Date: 07/17/24 Loc: [place] Room: Type: [facility] Attending Dr: Matteo Melo MD [...] Dictation Location: RADIO-PC-22 Transcribed By: PWS 07/17/24 1407 Dictated By: Mario Urias Jr DO 07/17/241406 Signed By: 07/17/24 140 Normal [facility] XR chest 1V portable [facility] [place] [place] [address] XRay Report Signed Patient: Jeremie Bennett MR#: [id number] : 1940 Acct:[id number] Age/Sex: 83 / M ADM Date: 07/17/24 Loc: [place] Room: Type: [facility] Attending Dr: Matteo Melo MD Copies [...] 2:07 PM Dictation Location: RADIO-PC-22 Transcribed By: [facility] 07/17/24 140 Dictated By: Mario Urias Jr, DO 07/17/24 140 Signed By: 07/17/24 1407 Normal [facility] Alanine aminotransferase [En zymatic activity/volume] in Serum or PlasmaOrdered By: Talib Faustin on 07-12-2024 ALT [Catalytic activity/Vol] Alanine aminotransferase [Enzymatic activity/volume] in Serum or Plasma 7-52 [facility] Albumin [Mass/volume] in Ser um or Plasma by Bromocresol green (BCG) dye binding methoOrdered By: Talib Faustin on 07-12-2024 Albumin BCG dye [Mass/Vol] Albumin [Mass/volume] in Serum or Plasma by Bromocresol green (BCG) dye binding metho 3.5-5.7 [facility] Alkaline phosphatase [Enzyma tic activity/volume] in Serum or PlasmaOrdered By: Talib Faustin on 07-12-2024 ALP [Catalytic activity/Vol] Alkaline phosphatase [Enzymatic activity/volume] in Serum or Plasma 34-104 [facility] Aspartate aminotransferase [ Enzymatic activity/volume] in Serum or PlasmaOrdered By: Talib Faustin on 07-12-2024 AST [Catalytic activity/Vol] Aspartate aminotransferase [Enzymatic activity/volume] in Serum or Plasma Low 13-39 [facility] Basophils Auto (Bld) [#/Vol] Ordered By: Talib Faustin on 07-12-2024 Basophils (Bld) [#/Vol] Automated basophil count 0.0-0.2 [facility] Basophils/100 WBC Auto (Bld) Ordered By: Talib Faustin on 07-12-2024 Basophils/100 WBC (Bld) Automated basophil % . [facility] Bilirubin.total [Mass/volume ] in Serum or PlasmaOrdered By: Talib Faustin on 07-12-2024 Bilirubin [Mass/Vol] Bilirubin.total [Mass/volume] in Serum or Plasma 0.3-1.0 [facility] Calcium [Mass/volume] in Ser um or PlasmaOrdered By: rick Faustin on 07-12-2024 Calcium [Mass/Vol] Calcium [Mass/volume ] in Serum or Plasma 8.6-10.3 [facility] Carbon dioxide, total [Moles /volume] in Serum or PlasmaOrdered By: rick Hargrove on 07-12-2024 CO2 [Moles/Vol] Carbon dioxide, tota l [Moles/volume] in Serum or Plasma 21.0-31.0 [facility] Chloride [Moles/volume] in S stephanie or PlasmaOrdered By: rick Faustin on 07-12-2024 Chloride [Moles/Vol] Chloride [Moles/vol ume] in Serum or Plasma 98-107 [facility] Complete Blood Count Auto Di ffon 07-12-2024 Basophils (Bld) [#/Vol] 0.0 10*3/uL Normal 0.0-0.2 [facility] Comment on above: Result Comment: PERF ORMED BY: [place] [address] PATHOLOGIST BRAID MAKER HEBER SHANNON M.D. Performed By: #### C BC, CMP, MG #### [address] Basophils/100 WBC (Bld) 0.3 % Normal . [facility] Comment on above: Performed By: #### C BC, CMP, MG #### [facility] [address] [place] [address] [place] Eosinophils (Bld) [#/Vol] 0.2 10*3/uL Normal 0.0-0.45 [facility] Comment on above: Performed By: #### C BC, CMP, MG #### [address] Eosinophils/100 WBC (Bld) 1.7 % Normal . [facility] Comment on above: Performed By: #### C BC, CMP, MG #### [address] Erythrocyte distribution width (RBC) [Ratio] 13.7 % Normal 12.0-14.8 [facility] Comment on above: Performed By: #### C BC, CMP, MG #### [address] Hematocrit (Bld) [Volume fraction] 38.0 % Low 38.8-50.0 [facility] Comment on above: Performed By: #### C BC, CMP, MG #### [address] Hemoglobin (Bld) [Mass/Vol] 12.6 g/dL Low 13.0-17.0 [facility] Comment on above: Performed By: #### C BC, CMP, MG #### [address] Lymphocytes (Bld) [#/Vol] 2.0 10*3/uL Normal 1.00-4.8 [facility] Comment on above: Performed By: #### C BC, CMP, MG #### [address] Lymphocytes/100 WBC (Bld) 19.2 % Normal . [facility] Comment on above: Performed By: #### C BC, CMP, MG #### [address] MCH (RBC) [Entitic mass] 30.7 pg Normal 27.5-35.2 [facility] Comment on above: Performed By: #### C BC, CMP, MG #### [address] MCV (RBC) [Entitic vol] 92.2 fL Normal 83.5-101 [facility] Comment on above: Performed By: #### C BC, CMP, MG #### [address] Mean Corpuscular HGB Conc 33.3 g/dL Normal 32.5-35.6 [facility] Comment on above: Performed By: #### C BC, CMP, MG #### [address] Monocytes (Bld) [#/Vol] 0.8 10*3/uL Normal 0.0-0.8 [facility] Comment on above: Performed By: #### C BC, CMP, MG #### [address] Monocytes/100 WBC (Bld) 7.5 % Normal . [facility] Comment on above: Performed By: #### C BC, CMP, MG #### [address] Neutrophils (Bld) [#/Vol] 7.3 10*3/uL Normal 1.8-7.7 [facility] Comment on above: Performed By: #### C BC, CMP, MG #### [address] Neutrophils/100 WBC (Bld) 71.3 % Normal . [facility] Comment on above: Performed By: #### C BC, CMP, MG #### [address] NRBC% 0.1 /100{WBC} Normal 0-0.5 [facility] Comment on above: Performed By: #### C BC, CMP, MG #### [address] Platelet mean volume (Bld) [Entitic vol] 9.0 fL Normal 6.6-10.1 [facility] Comment on above: Performed By: #### C BC, CMP, MG #### [address] Platelets (Bld) [#/Vol] 197 10*3/uL Normal 150-450 [facility] Comment on above: Performed By: #### C BC, CMP, MG #### [address] RBC (Bld) [#/Vol] 4.12 10*6/uL Normal 3.90-5.60 [facility] Comment on above: Performed By: #### C BC, CMP, MG #### [address] WBC (Bld) [#/Vol] 10.2 10*3/uL Normal 4.1-10.5 [facility] Comment on above: Performed By: #### C BC, CMP, MG #### [address] Comprehensive Metabolic Pane [facility] 07-12-2024 Albumin [Mass/Vol] 3.9 g/dL Normal 3.5-5.7 [facility] Comment on above: Performed By: #### C BC, BMP #### [address] Performed By: #### C BC, CMP, MG #### [address] Albumin/Globulin [Mass ratio] 1.6 {ratio} Normal [facility] Comment on above: Performed By: #### C BC, BMP #### [facility] [address] [place] [address] Performed By: #### C BC, CMP, MG #### [address] ALP [Catalytic activity/Vol] 86 U/L Normal 34-104 [facility] Comment on above: Performed By: #### C BC, BMP #### [address] Performed By: #### C BC, CMP, MG #### [facility] [address] ALT [Catalytic activity/Vol] 15 U/L Normal 7-52 [facility] Comment on above: Performed By: #### C BC, BMP #### [address] Performed By: #### C BC, CMP, MG #### [address] Anion gap [Moles/Vol] 12.2 mmol/L Normal 6.0-15.0 [facility] Comment on above: Performed By: #### C BC, BMP #### [address] Performed By: #### C BC, CMP, MG #### [address] AST [Catalytic activity/Vol] 11 U/L Low 13-39 [facility] Comment on above: Performed By: #### C BC, BMP #### [address] Performed By: #### C BC, CMP, MG #### [address] Bilirubin [Mass/Vol] 0.7 mg/dL Normal 0.3-1.0 [facility] Comment on above: Performed By: #### C BC, BMP #### [address] Performed By: #### C BC, CMP, MG #### [address] Calcium [Mass/Vol] 9.0 mg/dL Normal 8.6-10.3 [facility] Comment on above: Performed By: #### C BC, BMP #### [address] Performed By: #### C BC, CMP, MG #### [address] Chloride [Moles/Vol] 102 mmol/L Normal 98-107 [facility] Comment on above: Performed By: #### C BC, BMP #### [address] Performed By: #### C BC, CMP, MG #### [address] CO2 [Moles/Vol] 27.6 mmol/L Normal 21.0-31.0 [facility] Comment on above: Performed By: #### C BC, BMP #### [address] Performed By: #### C BC, CMP, MG #### [address] Creatinine [Mass/Vol] 1.01 mg/dL Normal 0.70-1.30 [facility] Comment on above: Performed By: #### C BC, BMP #### [address] Performed By: #### C BC, CMP, MG #### [address] Creatinine Clr Calc Pharmacy 53.09 Normal [facility] Comment on above: Performed By: #### C BC, BMP #### [address] Performed By: #### C BC, CMP, MG #### [address] GFR/1.73 sq M.predicted MDRD (S/P/Bld) [Vol rate/Area] mL/min/{1.73_m2} Normal [facility] Comment on above: Performed By: #### C BC, BMP #### [facility] [address] [place] [address] Performed By: #### C BC, CMP, MG #### [address] Globulin (S) [Mass/Vol] 2.5 g/dL Normal [facility] Comment on above: Performed By: #### C BC, BMP #### [address] Performed By: #### C BC, CMP, MG #### [address] Glucose [Mass/Vol] 120 mg/dL High 70-100 [facility] Comment on above: Result Comment: [facility] Glucose Reference Range is dependent on time and content of last meal. Glucose of more than 200 mg/dL in a nonstressed, ambulatory subject supports the diagnosis of Diabetes Mellitus. ADA recommended reference range Performed By: #### C BC, BMP #### [address] Performed By: #### C BC, CMP, MG #### [address] Potassium [Moles/Vol] 4.8 mmol/L Normal 3.5-5.1 [facility] Comment on above: Performed By: #### C BC, BMP #### [address] Performed By: #### C BC, CMP, MG #### [address] Protein [Mass/Vol] 6.4 g/dL Normal 6.4-8.9 [facility] Comment on above: Performed By: #### C BC, BMP #### [address] Performed By: #### C BC, CMP, MG #### [address] Sodium [Moles/Vol] 137 mmol/L Normal 136-145 [facility] Comment on above: Performed By: #### C BC, BMP #### [address] Performed By: #### C BC, CMP, MG #### [address] Urea nitrogen [Mass/Vol] 26 mg/dL High 7-25 [facility] Comment on above: Performed By: #### C BC, BMP #### [facility] [address] Performed By: #### C BC, CMP, MG #### [facility] [address] Creatinine [Mass/volume] in Serum or PlasmaOrdered By: Talib Faustin on 07-12-2024 Creatinine [Mass/Vol] Creatinine [Mass/v olume] in Serum or Plasma 0.70-1.30 [facility] Eosinophils Auto (Bld) [#/Vo l]Ordered By: rick Faustin on 07-12-2024 Eosinophils (Bld) [#/Vol] Automated eosinophil count 0.0-0.45 [facility] Eosinophils/100 WBC Auto (Bl d)Ordered By: rick Faustin on 07-12-2024 Eosinophils/100 WBC (Bld) Automated eosinophil % . [facility] Erythrocyte distribution wid th Auto (RBC) [Ratio]Ordered By: rick Faustin on 07-12-2024 Erythrocyte distribution width (RBC) [Ratio] Erythrocyte distribution width [Ratio] by Automated count 12.0-14.8 [facility] Globulin Calc (S) [Mass/Vol] Ordered By: rick Faustin on 07-12-2024 Globulin (S) [Mass/Vol] Serum globulin measurement by calculation (mass/volume) [facility] Glucose [Mass/volume] in Ser um or PlasmaOrdered By: rick Faustin on 07-12-2024 Glucose [Mass/Vol] Glucose [Mass/volume ] in Serum or Plasma High 70-100 [facility] Comment on above: ADA recommended [...] of Blood by Automated count Low 38.8-50.0 [facility] Hemoglobin [Mass/volume] in BloodOrdered By: Talib Faustin on 07-12-2024 Hemoglobin (Bld) [Mass/Vol] Hemoglobin [Mass/volume] in Blood Low 13.0-17.0 [facility] Leukocytes [#/volume] correc suzy for nucleated erythrocytes in Blood by Automated counOrdered By: Talib Faustin on 07-12-2024 WBC corrected for nucl RBC Auto (Bld) [#/Vol] Leukocytes [#/volume] corrected for nucleated erythrocytes in Blood by Automated coun 4.1-10.5 [facility] Lymphocytes Auto (Bld) [#/Vo l]Ordered By: rick Faustin on 07-12-2024 Lymphocytes (Bld) [#/Vol] Lymphocytes [#/volume] in Blood by Automated count 1.00-4.8 [facility] Lymphocytes/100 WBC Auto (Bl d)Ordered By: rick Faustin on 07-12-2024 Lymphocytes/100 WBC (Bld) Lymphocytes/100 leukocytes in Blood by Automated count . [facility] MCH Auto (RBC) [Entitic mass ]Ordered By: rick Faustin on 07-12-2024 MCH (RBC) [Entitic mass] MCH [Entitic mass] by Automated count 27.5-35.2 [facility] MCHC Auto (RBC) [Mass/Vol]Or dered By: rick Faustin on 07-12-2024 MCHC (RBC) [Mass/Vol] MCHC [Mass/volume] by Automated count 32.5-35.6 [facility] MCV Auto (RBC) [Entitic vol] Ordered By: rick Faustin on 07-12-2024 MCV (RBC) [Entitic vol] MCV [Entitic volume] by Automated count 83.5-101 [facility] Magnesiumon 07-12-2024 Magnesium [Mass/Vol] 1.9 mg/dL Normal 1.9-2.7 [facility] Comment on above: Result Comment: PERF ORMED BY: [facility] [address] [place] [address] PATHOLOGIST BRAID MAKER HEBER SHANNON M.D. Performed By: #### C BC, BMP #### [facility] [address] [place] [address] [place] Performed By: #### C BC, CMP, MG #### [facility] [address] [place] [address] [place] Magnesium [Mass/volume] in S stephanie or PlasmaOrdered By: Talib Faustin on 07-12-2024 Magnesium [Mass/Vol] Magnesium [Mass/vol ume] in Serum or Plasma 1.9-2.7 [facility] Monocytes Auto (Bld) [#/Vol] Ordered By: rick Faustin on 07-12-2024 Monocytes (Bld) [#/Vol] Automated blood monocyte count 0.0-0.8 [facility] Monocytes/100 WBC Auto (Bld) Ordered By: rick Faustin on 07-12-2024 Monocytes/100 WBC (Bld) Automated monocyte % . [facility] Neutrophils Auto (Bld) [#/Vo l]Ordered By: rick Faustin on 07-12-2024 Neutrophils (Bld) [#/Vol] Neutrophils [#/volume] in Blood by Automated count 1.8-7.7 [facility] Neutrophils/100 WBC Auto (Bl d)Ordered By: rick Faustin on 07-12-2024 Neutrophils/100 WBC (Bld) Automated neutrophil % . [facility] No Panel InformationOrdered By: rick Faustin on 07-12-2024 Estimated GFR (CKD-EPI) > 60.0 mL/Min [facility] Creatinine Clearance (Chem 53.09 [facility] Nucleated erythrocytes [Pres ence] in Blood by Automated countOrdered By: rick Faustin on 07-12-2024 Nucleated RBC Auto Ql (Bld) Nucleated erythrocytes [Presence] in Blood by Automated count 0-0.5 [facility] Platelet mean volume Auto (B ld) [Entitic vol]Ordered By: rick Faustin on 07-12-2024 Platelet mean volume (Bld) [Entitic vol] Platelet mean volume [Entitic volume] in Blood by Automated count 6.6-10.1 [facility] Platelets Auto (Bld) [#/Vol] Ordered By: Talib Faustin on 07-12-2024 Platelets (Bld) [#/Vol] Platelets [#/volume] in Blood by Automated count 150-450 [facility] Potassium [Moles/volume] in Serum or PlasmaOrdered By: Talib Faustin on 07-12-2024 Potassium [Moles/Vol] Potassium [Moles/v olume] in Serum or Plasma 3.5-5.1 [facility] Protein [Mass/volume] in Ser um or PlasmaOrdered By: Talib Faustin on 07-12-2024 Protein [Mass/Vol] Protein [Mass/volume ] in Serum or Plasma 6.4-8.9 [facility] RBC Auto (Bld) [#/Vol]Ordere d By: Talib Faustin on 07-12-2024 RBC (Bld) [#/Vol] Erythrocytes [#/volu me] in Blood by Automated count 3.90-5.60 [facility] Serum or plasma albumin/glob ulin mass ratioOrdered By: Talib Faustin on 07-12-2024 Albumin/Globulin [Mass ratio] Serum or plasma albumin/globulin mass ratio [facility] Serum or plasma anion gap de terminationOrdered By: Talib Faustin on 07-12-2024 Anion gap [Moles/Vol] Serum or plasma an ion gap determination 6.0-15.0 [facility] Sodium [Moles/volume] in Ser um or PlasmaOrdered By: Talib Faustin on 07-12-2024 Sodium [Moles/Vol] Sodium [Moles/volume ] in Serum or Plasma 136-145 [facility] Urea nitrogen [Mass/volume] in Serum or PlasmaOrdered By: Talib Faustin on 07-12-2024 Urea nitrogen [Mass/Vol] Urea nitrogen [Mass/volume] in Serum or Plasma High 7-25 [facility] WBC Auto (Bld) [#/Vol]Ordere d By: Talib Faustin on 07-12-2024 WBC (Bld) [#/Vol] Leukocytes [#/volume ] in Blood by Automated count 4.1-10.5 [facility] ANESon 07-10-2024 ANES ----- ----- [...] Procedure: PPM generator change - dual [facility] (Cath) Providers: Stacey Patel MD [...] discussed with attending. Additional Equipment Requests [facility] HPon 07-10-2024 HP ----- ----- Attestation signed by Stacey Patel [...] an additional personal documentation from me. ----- PA Electrophysiology Consult Note PA Cardiology Reason for visit: gen change 07/10/2024 [...] Heart valve disease Hyperlipidemia VT (ventricular tachycardia) (CMS/HCC) PSH: Surgical History Past Surgical History: Procedure Laterality Date ABLATION OF DYSRHYTHMIC FOCUS CARDIAC CATHETERIZATION INSERT / REPLACE / REMOVE PACEMAKER SH: Social Determinants of Health Tobacco Use: Medium Risk (05/11/2024) Received from [facility] Patient History Smoking Tobacco Use: Former Smokeless Tobacco Use: Former Passive Exposure: Not on file Alcohol Use: Not on file Financial Resource Strain: Not on file Food Insecurity: Not on file Transportation Needs: Not on file Physical Activity: Not on file Stress: Not on file Social Connections: Not on file Intimate Partner Violence: Unknown (07/08/2023) PA Safety & Environment Fear of Current or Ex-Partner: Not on file Emotionally Abused: Not on file Physically Abused: Not on file Sexually Abused: Not on file Physically or Sexually Abused: Not on file Depression: Not at risk (04/07/2024) Received from [facility] PHQ-2 Patient Health Questionnaire-2 Score: 0 [...] no b (more content not included)... [facility] NURSNOTEon 07-10-2024 NURSNOTE RN educated pt on [...] off of unit with all of belongings. [facility] NURSNOTE CHG wipes and betadi ne nasal swabs completed. [facility] Orders Onlyon 07-10-2024 Orders Only [id number] [address] 1940 M Date Provider Department Center 07/10/2024 ELIF GONZALEZ [facility] PA HeartVAS Family History Problem Relation Age of Onset Coronary artery disease Mother Kidney disease Mother Heart failure Mother Family Status - Relation Status Age at Mother [facility] CBC w/ Auto DiffOrdered By: SYSTEM SYSTEM on 07-03-2024 Band form neutrophils/100 WBC (Bld) 8.0 % High 0.0-6.0 [facility] Comment on above: Performed By: #### 2 [id number] #### [facility] [address] [place] [address] Basophils (Bld) [#/Vol] 0.0 E9/L Normal 0.0-0.2 [facility] Comment on above: Performed By: #### 2 [id number] #### [facility] [address] [place] [address] Eosinophils (Bld) [#/Vol] 0.0 E9/L Normal 0.0-0.5 [facility] Comment on above: Performed By: #### 2 [id number] #### [facility] [address] [place] [address] Eosinophils/100 WBC (Bld) 0.0 % Normal 0.0-8.0 [facility] Comment on above: Performed By: #### 2 [id number] #### [facility] [address] [place] [address] Erythrocyte distribution width (RBC) [Ratio] 13.9 % Normal 10.9-14.2 [facility] Comment on above: Performed By: #### 2 [id number] #### [facility] [address] [place] [address] Hematocrit (Bld) [Volume fraction] 39.7 % Normal 37.7-49.0 [facility] Comment on above: Performed By: #### 2 338191 #### [facility] [address] [place] [address] Hemoglobin (Bld) [Mass/Vol] 13.3 g/dL Low 13.5-17.5 [facility] Comment on above: Performed By: #### 2 [id number] #### [facility] [address] [place] [address] Lymphocytes (Bld) [#/Vol] 2.2 E9/L Normal 1.0-4.0 [facility] Comment on above: Performed By: #### 2 [id number] #### [facility] [address] [place] [address] Lymphocytes/100 WBC (Bld) 20.0 % Normal 14.0-50.0 [facility] Comment on above: Performed By: #### 2 [id number] #### [facility] [address] [place] [address] MCH (RBC) [Entitic mass] 31.3 pg Normal 27.0-34.0 [facility] Comment on above: Performed By: #### 2 [id number] #### [facility] [address] [place] [address] MCHC (RBC) [Mass/Vol] 33.4 g/dL Normal 31.4-36.0 [facility] Comment on above: Performed By: #### 2 [id number] #### [facility] [address] [place] [address] MCV (RBC) [Entitic vol] 93.5 fL Normal 80.0-100.0 [facility] Comment on above: Performed By: #### 2 797839 #### [facility] [address] [place] [address] Monocytes (Bld) [#/Vol] 0.6 E9/L Normal 0.2-1.0 [facility] Comment on above: Performed By: #### 2 [id number] #### [facility] [address] [place] [address] Myelocytes/100 WBC (Bld) 3.0 % High 0.0-0.0 [facility] Comment on above: Performed By: #### 2 319019 #### [facility] [address] [place] [address] Neutrophils (Bld) [#/Vol] 7.4 E9/L Invalid Interpretation Code [facility] Comment on above: Performed By: #### 2 479772 #### [facility] [address] [place] [address] Platelet 271.0 E9/L Normal 150.0-500. 0 [facility] Comment on above: Performed By: #### 2 [id number] #### [facility] [address] [place] [address] Platelet mean volume (Bld) [Entitic vol] 9.2 fL Normal 6.4-10.8 [facility] Comment on above: Performed By: #### 2 [id number] #### [facility] [address] [place] [address] RBC (Bld) [#/Vol] 4.2 E12/L Low 4.3-5.9 [facility] Comment on above: Performed By: #### 2 [id number] #### [facility] [address] [place] [address] Segmented neutrophils/100 WBC (Bld) 62.0 % Normal 36.0-75.0 [facility] Comment on above: Performed By: #### 2 657218 #### [facility] [address] [place] [address] Variant lymphocytes/100 WBC (Bld) 1.0 % High 0.0-0.0 [facility] Comment on above: Performed By: #### 2 615354 #### [facility] [address] [place] [address] WBC corrected for nucl RBC Auto (Bld) [#/Vol] 10.5 E9/L Normal 4.0-11.0 [facility] Comment on above: Performed By: #### 2 [id number] #### [facility] [address] [place] [address] CBC w/ Auto Diffon 5 RBC size Nom (Bld) NORMAL Invalid Interpretation Code [facility] Comment on above: Performed By: #### 2 [id number] #### [facility] [address] [place] [address] CHEMISTRYOrdered By: SYSTEM SYSTEM on 07-03-2024 Albumin/Globulin [...] Comment on above: Performed By: #### 2 [id number] #### [facility] [address] [place] [address] Anion gap [Moles/Vol] 10 mmol/L Normal 6-16 [facility] Comment on above: Performed By: #### 2 [id number] #### [facility] [address] [place] [address] Bilirubin [Mass/Vol] 0.3 mg/dL Normal 0.0-1.1 [facility] Comment on above: Performed By: #### 2 165825 #### [facility] [address] [place] [address] Calcium [Mass/Vol] 9.1 mg/dL Normal 8.9-11.1 [facility] Comment on above: Performed By: #### 2 838349 #### [facility] [address] [place] [address] Chloride [Moles/Vol] 107 mmol/L Normal 101-111 [facility] Comment on above: Performed By: #### 2 [id number] #### [facility] [address] [place] [address] CO2 [Moles/Vol] 28 mmol/L Normal 21-31 [facility] Comment on above: Performed By: #### 2 111624 #### [facility] [address] [place] [address] Creatinine [Mass/Vol] 1.0 mg/dL Normal 0.5-1.3 [facility] Comment on above: Performed By: #### 2 [id number] #### [facility] [address] [place] [address] Globulin (S) [Mass/Vol] 2.7 g/dL Normal 1.4-4.0 [facility] Comment on above: Performed By: #### 2 176396 #### [facility] [address] [place] [address] Glucose [Mass/Vol] 138 mg/dL Normal 55-199 [facility] Comment on above: Performed By: #### 2 454658 #### [facility] [address] [place] [address] Potassium [Moles/Vol] 4.5 mmol/L Normal 3.5-5.3 [facility] Comment on above: Performed By: #### 2 994279 #### [facility] [address] [place] [address] Protein [Mass/Vol] 6.7 g/dL Normal 6.0-7.8 [facility] Comment on above: Performed By: #### 2 520929 #### [facility] [address] [place] [address] Sodium [Moles/Vol] 140 mmol/L Normal 135-145 [facility] Comment on above: Performed By: #### 2 893944 #### [facility] [address] [place] [address] Urea nitrogen [Mass/Vol] 20 mg/dL Normal 5-21 [facility] Comment on above: Performed By: #### 2 399541 #### [facility] [address] [place] [address] CMPon 07-03-2024 Albumin/Globulin (S) [Mass conc ratio] 1.5 Normal 1.1-2.2 [facility] Comment on above: Performed By: #### 2 359062 #### [facility] [address] [place] [address] ALP [Catalytic activity/Vol] 70 Int._Unit/L Normal 21-98 [facility] Comment on above: Performed By: #### 2 696561 #### [facility] [address] [place] [address] ALT No additional P-5'-P [Catalytic activity/Vol] 24 Int._Unit/L Normal 6-46 [facility] Comment on above: Performed By: #### 2 220597 #### [facility] [address] [place] [address] AST [Catalytic activity/Vol] 20 Int._Unit/L Normal 5-43 [facility] Comment on above: Performed By: #### 2 787012 #### [facility] [address] [place] [address] Urea nitrogen/Creatinine [Mass ratio] 20 No Units Normal 10-20 [facility] Comment on above: Performed By: #### 2 138002 #### [facility] [address] [place] [id number] HEMATOLOGYOrdered By: SYSTEM SYSTEM on 07-03-2024 Basophils/100 [...] Comment on above: Performed By: #### 2 [id number] #### [facility] [address] [place] [id number] eGFROrdered By: SYSTEM [employer] on 07-03-2024 eGFR 74 mL/min/1.73 m2 Normal >=59 [facility] Comment on above: Performed By: #### 1 [id number] #### [facility] [address] [place] [address] 36on 06-28-[address] Arellano pt w as called to schedule cardiac clearance appt. Pt stated he would rather be seen in [place], so I advised pt to call and schedule with them. [facility] No Panel Informationon 06-23 [employer] indicated a mild to severe sensorineural hearing loss 250-8000 Hz, bilaterally. [facility] Basic Metabolic Panelon Anion gap [Moles/Vol] 8.5 mmol/L Normal 6.0-15.0 [facility] Comment on above: Performed By: #### C BC, BMP #### [address] Performed By: #### C BC, MG, CMP #### [address] Calcium [Mass/Vol] 9.0 mg/dL Normal 8.6-10.3 [facility] Comment on above: Result Comment: PERF ORMED BY: [place] [address] PATHOLOGIST BRAID MAKER HEBER SHANNON M.D. Performed By: #### C BC, BMP #### [address] Performed By: #### C BC, MG, CMP #### [address] Chloride [Moles/Vol] 110 mmol/L High 98-107 [facility] Comment on above: Performed By: #### C BC, BMP #### [address] Performed By: #### C BC, MG, CMP #### [address] CO2 [Moles/Vol] 24.5 mmol/L Normal 21.0-31.0 [facility] Comment on above: Performed By: #### C BC, BMP #### [address] Performed By: #### C BC, MG, CMP #### [address] Creatinine [Mass/Vol] 0.97 mg/dL Normal 0.70-1.30 [facility] Comment on above: Performed By: #### C BC, BMP #### [facility] [address] [place] [address] Performed By: #### C BC, MG, CMP #### [address] GFR/1.73 sq M.predicted MDRD (S/P/Bld) [Vol rate/Area] mL/min/{1.73_m2} Normal [facility] Comment on above: Performed By: #### C BC, BMP #### [address] Performed By: #### C BC, MG, CMP #### [address] Glucose [Mass/Vol] 118 mg/dL High 70-100 [facility] Comment on above: Result Comment: [place] Glucose Reference Range is dependent on time and content of last meal. Glucose of more than 200 mg/dL in a nonstressed, ambulatory subject supports the diagnosis of Diabetes Mellitus. ADA recommended reference range Performed By: #### C BC, BMP #### [address] Performed By: #### C BC, MG, CMP #### [address] Potassium [Moles/Vol] 4.0 mmol/L Normal 3.5-5.1 [facility] Comment on above: Performed By: #### C BC, BMP #### [address] Performed By: #### C BC, MG, CMP #### [address] Sodium [Moles/Vol] 139 mmol/L Normal 136-145 [facility] Comment on above: Performed By: #### C BC, BMP #### [address] Performed By: #### C BC, MG, CMP #### [address] Urea nitrogen [Mass/Vol] 19 mg/dL Normal 7-25 [facility] Comment on above: Performed By: #### C BC, BMP #### [address] Performed By: #### C BC, MG, CMP #### [address] Basic metabolic 1998 panelon 06-22-2024 Anion gap [Moles/Vol] 8.5 mmol/L 6.0 - 15.0 meq/L [facility] Calcium [Mass/Vol] 9 mg/dL 8.6 - 10. 3 mg/dL [facility] Chloride [Moles/Vol] 110 mmol/L High 98 - 10 7 mmol/L [facility] CO2 [Moles/Vol] 24.5 mmol/L 21.0 - 31.0 mmol/L [facility] Creatinine (U) [Mass/Vol] 0.97 mg/dL 0.70 - 1.30 mg/dL [facility] ESTIMATED GFR mL/Min [facility] Glucose [Mass/Vol] 118 mg/dL High 70 - 100 mg/dL [facility] Comment on above: Random Glucose Refer ence Range is dependent on time and content of last meal. Glucose of more than 200 mg/dL in a nonstressed, ambulatory subject supports the diagnosis of Diabetes Mellitus. ADA recommended reference range Interpretation and review of laboratory results Abnormal [facility] Potassium [Moles/Vol] 4 mmol/L 3.5 - 5.1 mmol/L [facility] Sodium [Moles/Vol] 139 mmol/L 136 - 145 mmol/L [facility] Urea nitrogen [Mass/Vol] 19 mg/dL 7 - 25 mg/dL [facility] Basophils Auto (Bld) [#/Vol] Ordered By: Matteo Melo on 06-22-2024 Basophils (Bld) [#/Vol] Automated basophil count 0.0-0.2 [facility] Basophils/100 WBC Auto (Bld) Ordered By: Matteo Melo on 06-22-2024 Basophils/100 WBC (Bld) Automated basophil % . [facility] CBC W Auto Differential pane l (Bld)on 06-22-2024 Basophils (Bld) [#/Vol] 0.1 10*3/uL 0.0 - 0.2 10*3/uL [facility] Basophils/100 WBC Manual cnt (Syn fld) 0.7 % . [facility] Eosinophils (Bld) [#/Vol] 0.4 10*3/uL 0.0 - 0.45 10*3/uL [facility] Eosinophils/100 WBC Manual cnt (Syn fld) 5 % . [facility] Erythrocyte distribution width (RBC) [Ratio] 13.4 % 12.0 - 14.8 % [facility] Hematocrit (Bld) [Volume fraction] 40.7 % 38.8 - 50.0 % [facility] Hemoglobin (Bld) [Mass/Vol] 13.7 g/dL 13.0 - 17.0 g/dL [facility] Lymphocytes (Bld) [#/Vol] 2.5 10*3/uL 1.00 - 4.8 10*3/uL [facility] Lymphocytes/100 WBC Manual cnt (Syn fld) 30.2 % . [facility] MCH (RBC) [Entitic mass] 31 pg 27.5 - 35.2 pg [facility] MCHC (RBC) [Mass/Vol] 33.7 g/dL 32.5 - 35.6 g/dL [facility] MCV (RBC) [Entitic vol] 92 fL 83.5 - 101 fL [facility] Monocytes (Bld) [#/Vol] 0.7 10*3/uL 0.0 - 0.8 10*3/uL [facility] Monocytes+Macrophages/ 100 WBC Manual cnt (Syn fld) 8.8 % . [facility] Neutrophils (Bld) [#/Vol] 4.6 10*3/uL 1.8 - 7.7 10*3/uL [facility] Neutrophils/100 WBC Manual cnt (Syn fld) 55.3 % . [facility] NRBC 0.2 /100{WBC} 0 - 0.5 /100{WBC} [facility] Platelet mean volume (Bld) [Entitic vol] 8.9 fL 6.6 - 10.1 fL [facility] Platelets (Bld) [#/Vol] 234 10*3/uL 150 - 450 10*3/uL [facility] RBC LM.HPF (Urine sed) [#/Area] 4.43 10*6/uL 3.90 - 5.60 10*6/uL [facility] WBC (Bld) [#/Vol] 8.4 10*3/uL 4.1 - 10.5 10*3/uL [facility] WBC LM.HPF (Urine sed) [#/Area] 8.4 10*3/uL 4.1 - 10.5 10*3/uL [facility] Calcium [Mass/volume] in Ser um or PlasmaOrdered By: Matteo Melo on 06-22-2024 Calcium [Mass/Vol] Calcium [Mass/volume ] in Serum or Plasma 8.6-10.3 [facility] Carbon dioxide, total [Moles /volume] in Serum or PlasmaOrdered By: Matteo Melo on 06-22-2024 CO2 [Moles/Vol] Carbon dioxide, tota l [Moles/volume] in Serum or Plasma 21.0-31.0 [facility] Chloride [Moles/volume] in S stephanie or PlasmaOrdered By: Matteo Melo on 06-22-2024 Chloride [Moles/Vol] Chloride [Moles/vol ume] in Serum or Plasma High 98-107 [facility] Complete Blood Count Auto Di ffon 06-22-2024 Basophils (Bld) [#/Vol] 0.1 10*3/uL Normal 0.0-0.2 [facility] Comment on above: Result Comment: PERF ORMED BY: [place] [address] PATHOLOGIST BRAID MAKER HEBER SHANNON M.D. Performed By: #### C BC, BMP #### [address] Performed By: #### C BC, MG, CMP #### [address] Basophils/100 WBC (Bld) 0.7 % Normal . [facility] Comment on above: Performed By: #### C BC, BMP #### [facility] [address] [place] [address] Performed By: #### C BC, MG, CMP #### [address] Eosinophils (Bld) [#/Vol] 0.4 10*3/uL Normal 0.0-0.45 [facility] Comment on above: Performed By: #### C BC, BMP #### [address] Performed By: #### C BC, MG, CMP #### [address] Eosinophils/100 WBC (Bld) 5.0 % Normal . [facility] Comment on above: Performed By: #### C BC, BMP #### [address] Performed By: #### C BC, MG, CMP #### [address] Erythrocyte distribution width (RBC) [Ratio] 13.4 % Normal 12.0-14.8 [facility] Comment on above: Performed By: #### C BC, BMP #### [address] Performed By: #### C BC, MG, CMP #### [address] Hematocrit (Bld) [Volume fraction] 40.7 % Normal 38.8-50.0 [facility] Comment on above: Performed By: #### C BC, BMP #### [address] Performed By: #### C BC, MG, CMP #### [address] Hemoglobin (Bld) [Mass/Vol] 13.7 g/dL Normal 13.0-17.0 [facility] Comment on above: Performed By: #### C BC, BMP #### [address] Performed By: #### C BC, MG, CMP #### [address] Lymphocytes (Bld) [#/Vol] 2.5 10*3/uL Normal 1.00-4.8 [facility] Comment on above: Performed By: #### C BC, BMP #### [address] Performed By: #### C BC, MG, CMP #### [address] Lymphocytes/100 WBC (Bld) 30.2 % Normal . [facility] Comment on above: Performed By: #### C BC, BMP #### [address] Performed By: #### C BC, MG, CMP #### [address] MCH (RBC) [Entitic mass] 31.0 pg Normal 27.5-35.2 [facility] Comment on above: Performed By: #### C BC, BMP #### [address] Performed By: #### C BC, MG, CMP #### [address] MCV (RBC) [Entitic vol] 92.0 fL Normal 83.5-101 [facility] Comment on above: Performed By: #### C BC, BMP #### [address] Performed By: #### C BC, MG, CMP #### [address] Mean Corpuscular HGB Conc 33.7 g/dL Normal 32.5-35.6 [facility] Comment on above: Performed By: #### C BC, BMP #### [address] Performed By: #### C BC, MG, CMP #### [address] Monocytes (Bld) [#/Vol] 0.7 10*3/uL Normal 0.0-0.8 [facility] Comment on above: Performed By: #### C BC, BMP #### [address] Performed By: #### C BC, MG, CMP #### [address] Monocytes/100 WBC (Bld) 8.8 % Normal . [facility] Comment on above: Performed By: #### C BC, BMP #### [address] Performed By: #### C BC, MG, CMP #### [address] Neutrophils (Bld) [#/Vol] 4.6 10*3/uL Normal 1.8-7.7 [facility] Comment on above: Performed By: #### C BC, BMP #### [address] Performed By: #### C BC, MG, CMP #### [address] Neutrophils/100 WBC (Bld) 55.3 % Normal . [facility] Comment on above: Performed By: #### C BC, BMP #### [address] Performed By: #### C BC, MG, CMP #### [address] NRBC% 0.2 /100{WBC} Normal 0-0.5 [facility] Comment on above: Performed By: #### C BC, BMP #### [address] Performed By: #### C BC, MG, CMP #### [address] Platelet mean volume (Bld) [Entitic vol] 8.9 fL Normal 6.6-10.1 [facility] Comment on above: Performed By: #### C BC, BMP #### [address] Performed By: #### C BC, MG, CMP #### [address] Platelets (Bld) [#/Vol] 234 10*3/uL Normal 150-450 [facility] Comment on above: Performed By: #### C BC, BMP #### [place] [id number] [place] Performed By: #### C BC, MG, CMP #### [facility] [address] RBC (Bld) [#/Vol] 4.43 10*6/uL Normal 3.90-5.60 [facility] Comment on above: Performed By: #### C BC, BMP #### [facility] [address] [place] [address] [place] Performed By: #### C BC, MG, CMP #### [facility] [address] WBC (Bld) [#/Vol] 8.4 10*3/uL Normal 4.1-10.5 [facility] Comment on above: Performed By: #### C BC, BMP #### [facility] [address] [place] [address] Performed By: #### C BC, MG, CMP #### [address] Creatinine [Mass/volume] in Serum or PlasmaOrdered By: Matteo Melo on 06-22-2024 Creatinine [Mass/Vol] Creatinine [Mass/v olume] in Serum or Plasma 0.70-1.30 [facility] ECG 12 lead ECGon 06-22-2024 ECG 12 lead ECG [facility] Main [place] [address] [place] [address] Electrocardiograph Report Signed Patient: Jeremie Bennett MR#: [id number] 812 : 1940 Acct:[id number] Age/Sex: 83 / M ADM Date: 06/22/24 Loc: Room: Type: [facility] Attending Dr: Matteo Melo MD Ordering Provider: [...] Santiago MD 0 06/23/24 1517 Normal [facility] ECG 12 lead ECG [facility] [place] [address] Electrocardiograph Report Signed Patient: Jeremie Bennett MR#: [id number] 669 : 1940 Acct:[id number] Age/Sex: 83 / M ADM Date: 06/22/24 Loc: PS Room: Type: [facility] Attending Dr: Matteo Melo MD Ordering Provider: [...] Signed By Amilcar Santiago MD 0 06/23/24 151 Normal [facility] Eosinophils Auto (Bld) [#/Vo l]Ordered By: Matteo Melo on 06-22-2024 Eosinophils (Bld) [#/Vol] Automated eosinophil count 0.0-0.45 [facility] Eosinophils/100 WBC Auto (Bl d)Ordered By: Matteo Melo on 06-22-2024 Eosinophils/100 WBC (Bld) Automated eosinophil % . [facility] Erythrocyte distribution wid th Auto (RBC) [Ratio]Ordered By: Matteo Melo on 06-22-2024 Erythrocyte distribution width (RBC) [Ratio] Erythrocyte distribution width [Ratio] by Automated count 12.0-14.8 [facility] Glucose [Mass/volume] in Ser um or PlasmaOrdered By: Matteo Melo on 06-22-2024 Glucose [Mass/Vol] Glucose [Mass/volume ] in Serum or Plasma High 70-100 [facility] Comment on above: ADA recommended refe rence rangeRandom Glucose Reference Range is dependent on time and content of last meal. Glucose of more than 200 mg/dL in a nonstressed, ambulatory subject supports the diagnosis of Diabetes Mellitus. Hematocrit Auto (Bld) [Volum e fraction]Ordered By: Matteo Melo on 06-22-2024 Hematocrit (Bld) [Volume fraction] Hematocrit [Volume Fraction] of Blood by Automated count 38.8-50.0 [facility] Hemoglobin [Mass/volume] in BloodOrdered By: Matteo Melo on 06-22-2024 Hemoglobin (Bld) [Mass/Vol] Hemoglobin [Mass/volume] in Blood 13.0-17.0 [facility] Leukocytes [#/volume] correc suzy for nucleated erythrocytes in Blood by Automated counOrdered By: Matteo Melo on 06-22-2024 WBC corrected for nucl RBC Auto (Bld) [#/Vol] Leukocytes [#/volume] corrected for nucleated erythrocytes in Blood by Automated coun 4.1-10.5 [facility] Lymphocytes Auto (Bld) [#/Vo l]Ordered By: Matteo Melo on 06-22-2024 Lymphocytes (Bld) [#/Vol] Lymphocytes [#/volume] in Blood by Automated count 1.00-4.8 [facility] Lymphocytes/100 WBC Auto (Bl d)Ordered By: Matteo Melo on 06-22-2024 Lymphocytes/100 WBC (Bld) Lymphocytes/100 leukocytes in Blood by Automated count . [facility] MCH Auto (RBC) [Entitic mass ]Ordered By: Matteo Melo on 06-22-2024 MCH (RBC) [Entitic mass] MCH [Entitic mass] by Automated count 27.5-35.2 [facility] MCHC Auto (RBC) [Mass/Vol]Or dered By: Matteo Melo on 06-22-2024 MCHC (RBC) [Mass/Vol] MCHC [Mass/volume] by Automated count 32.5-35.6 [facility] MCV Auto (RBC) [Entitic vol] Ordered By: Matteo Melo on 06-22-2024 MCV (RBC) [Entitic vol] MCV [Entitic volume] by Automated count 83.5-101 [facility] Monocytes Auto (Bld) [#/Vol] Ordered By: Matteo Melo on 06-22-2024 Monocytes (Bld) [#/Vol] Automated blood monocyte count 0.0-0.8 [facility] Monocytes/100 WBC Auto (Bld) Ordered By: Matteo Melo on 06-22-2024 Monocytes/100 WBC (Bld) Automated monocyte % . [facility] Neutrophils Auto (Bld) [#/Vo l]Ordered By: Matteo Melo on 06-22-2024 Neutrophils (Bld) [#/Vol] Neutrophils [#/volume] in Blood by Automated count 1.8-7.7 [facility] Neutrophils/100 WBC Auto (Bl d)Ordered By: Matteo Melo on 06-22-2024 Neutrophils/100 WBC (Bld) Automated neutrophil % . [facility] No Panel InformationOrdered By: Matteo Melo on 06-22-2024 Estimated GFR (CKD-EPI) > 60.0 mL/Min [facility] Creatinine Clearance (Chem N/A [facility] Nucleated erythrocytes [Pres ence] in Blood by Automated countOrdered By: Matteo Melo on 06-22-2024 Nucleated RBC Auto Ql (Bld) Nucleated erythrocytes [Presence] in Blood by Automated count 0-0.5 [facility] Platelet mean volume Auto (B ld) [Entitic vol]Ordered By: Matteo Melo on 06-22-2024 Platelet mean volume (Bld) [Entitic vol] Platelet mean volume [Entitic volume] in Blood by Automated count 6.6-10.1 [facility] Platelets Auto (Bld) [#/Vol] Ordered By: Matteo Melo on 06-22-2024 Platelets (Bld) [#/Vol] Platelets [#/volume] in Blood by Automated count 150-450 [facility] Potassium [Moles/volume] in Serum or PlasmaOrdered By: Matteo Melo on 06-22-2024 Potassium [Moles/Vol] Potassium [Moles/v olume] in Serum or Plasma 3.5-5.1 [facility] RBC Auto (Bld) [#/Vol]Ordere d By: Matteo Melo on 06-22-2024 RBC (Bld) [#/Vol] Erythrocytes [#/volu me] in Blood by Automated count 3.90-5.60 [facility] Serum or plasma anion gap de terminationOrdered By: Matteo Melo on 06-22-2024 Anion gap [Moles/Vol] Serum or plasma an ion gap determination 6.0-15.0 [facility] Sodium [Moles/volume] in Ser um or PlasmaOrdered By: Matteo Melo on 06-22-2024 Sodium [Moles/Vol] Sodium [Moles/volume ] in Serum or Plasma 136-145 [facility] Urea nitrogen [Mass/volume] in Serum or PlasmaOrdered By: Matteo Melo on 06-22-2024 Urea nitrogen [Mass/Vol] Urea nitrogen [Mass/volume] in Serum or Plasma 7-25 [facility] WBC Auto (Bld) [#/Vol]Ordere d By: Matteo Melo on 06-22-2024 WBC (Bld) [#/Vol] Leukocytes [#/volume ] in Blood by Automated count 4.1-10.5 [facility] Surgical pathology studyon 0 06-05-2024 Surgical pathology study Pathology report.total SEE COMMENT Surgical Pathology Case: [id number] Authorizing Provider: Mary Schneider MD Collected: 06/05/2024 1609 Ordering Location: [facility] Received: 06/05/[address] [place] [address] Pathologist: Alessandro Arzate DDS Specimen: LYMPH NODE BIOPSY Path report.final diagnosis SEE COMMENT Lymph node, core biopsy: - Metastatic non-keratinizing squamous cell carcinoma, see note. 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 P16 by immunohistochemistry: Equivocal. 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 Reference Range (p16): Negative: <50% strong nuclear [...] is submitted in toto in one cassette. [facility] AP ASR DISCLAIMER One or more of the reagents used to perform assays on this specimen MAY have contained components considered to be analyte specific reagents (ASR's). ASR's have not been cleared or approved by the U.S. Food and Drug Administration. These assays were developed and their performance characteristics determined by the Department of Pathology at [facility]. The FDA does not require this [...] and negative controls which stained appropriately. Normal [facility] US GUIDED BIOPSY LYMPH NODE SUPERFICIALon 06-05-2024 US GUIDED BIOPSY LYMPH NODE SUPERFICIAL Interpreted By: Gaby Perez and Guirguis James STUDY: US GUIDED BIOPSY LYMPH NODE SUPERFICIAL; 06/05/2024 1:53 pm INDICATION: Signs/Symptoms:left neck enlarged lymph node seen on PET. COMPARISON: PET-CT dated 03/27/2024 ACCESSION NUMBER(S): [id number] ORDERING CLINICIAN: MARY SCHNEIDER TECHNIQUE: INTERVENTIONALIST(S): MD [...] intravenous fentanyl 50mcg and versed 0.5mg from 1301-4227. The physician was assisted by an independent [...] findings as stated. Performed and dictated at [facility]. MACRO: None. Signed by: Gaby Perez 06/05/2024 9:02 PM Dictation workstation: [id number] Normal [facility] US guidance for percutaneous [...] findings as stated. Performed and dictated at [facility]. MACRO: None. Signed by: Gaby Perez 06/05/2024 9:02 PM Dictation workstation: [id number] Interpreted By: Gaby Perez and Jose Ramon Martinez STUDY: US GUIDED BIOPSY LYMPH NODE SUPERFICIAL; 06/05/2024 1:53 pm INDICATION: Signs/Symptoms:left neck enlarged lymph node seen on PET. COMPARISON: PET-CT dated 03/27/2024 ACCESSION NUMBER(S): [id number] ORDERING CLINICIAN: MARY SCHNEIDER TECHNIQUE: INTERVENTIONALIST(S): MD [...] intravenous fentanyl 50mcg and versed 0.5mg from 5100-5765. The physician was assisted by an independent [...] PET. COMPARISON: PET-CT dated 03/27/2024 ACCESSION NUMBER(S): [id number] ORDERING CLINICIAN: MARY SCHNEIDER TECHNIQUE: INTERVENTIONALIST(S): MD [...] intravenous fentanyl 50mcg and versed 0.5mg from 7971-6362. The physician was assisted by an independent [...] findings as stated. Performed and dictated at [facility]. MACRO: None. Signed by: Gaby Perez 06/05/2024 9:02 PM Dictation workstation: [id number] [facility] Work Phone: Radiology Study observation (narrative) [facility] Work Phone: US guidance for percutaneous biopsy of Lymph nodeOrdered By: Gaby Perez on 06-05-2024 [facility] Work Phone: NM TRANSFER OF OUTSIDE FILMS on 05-15-2024 NM TRANSFER OF OUTSIDE FILMS Outside images for comparison or treatment purposes, not interpreted by Radiologists. Normal [facility] Study Interpretation of outs romina studyon 05-15-2024 Outside images for comparison or treatment purposes, not interpreted by Radiologists. IMAGING Blood type and Indirect anti body screen panel (Bld)on 05-11-2024 ABO group Nom (Bld) A [facility] Blood group antibody screen Ql Negative [facility] D Ag Ql (Bld) Positive [facility] ABO group Nom (Bld) A Normal [facility] Comment on above: Order Comment: Patie nt admitted for surgery associated with significant blood loss OR per blood bank request. Performed By: #### 3 4532-2 #### TING Knox ([id number]) [facility] ([facility]) [address] [place] [address] Blood group antibody screen Ql Negative Normal [facility] Comment on above: Order Comment: Chris nt admitted for surgery associated with significant blood loss OR per blood bank request. Performed By: #### 3 4532-2 #### TING Knox ([id number]) [facility] ([facility]) [address] [place] [address] D Ag Ql (Bld) Positive Normal [facility] Comment on above: Order Comment: Chris nt admitted for surgery associated with significant blood loss OR per blood bank request. Performed By: #### 3 4532-2 #### TING Knox ([id number]) [facility] ([facility]) [id number] [place] [address] Glucose Test strip manual (B ld) [Mass/Vol]on 05-11-2024 Glucose [Mass/Vol] 128 mg/dL High 74 - 99 mg/dL [facility] Interpretation and review of laboratory results Abnormal [facility] Glucose [Mass/Vol] 128 mg/dL High 74-99 [facility] Comment on above: Performed By: #### 2 341-6 #### TING Knox ([id number]) [facility] ([facility]) [address] [place] [address] Glucose [Mass/Vol] 120 mg/dL High 74 - 99 mg/dL [facility] Comment on above: RN NOTIFIED Interpretation and review of laboratory results Abnormal [facility] Glucose [Mass/Vol] 120 mg/dL High 74-99 [facility] Comment on above: Result Comment: RN N OTIFIED Performed By: #### 2 341-6 #### TING Knox ([id number]) [facility] ([facility]) [address] [place] [address] Surgical pathology studyon 1 07-12-2023 Surgical pathology study Pathology report.total SEE COMMENT Surgical Pathology Case: [id number] Authorizing Provider: Mary Schneider MD Collected: 05/11/2024801 Ordering Location: [facility] Received: 05/11/2024804 [facility] [place] Pathologist: Asuncion Quintanilla MD PhD Intraop: [...] were reviewed in conjunction with pathology resident, eRyna Boyd MD. 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 Received fresh for intraoperative consultation, labeled with the patient's name and hospital number and RIGHT BASE OF TONGUE , are multiple fragments of red-wiclox soft tissue measuring 0.6 x 0.5 x [...] squamous dysplasia/carcinoma in situ. Intraoperative Consult Pathologist(s): MD Cuate Dinh. Received Date and Time: 05/11/2024 at 8:22 am - Called Date and Time: 05/11/2024 at 8:45 am Reported to: Dr. Mary Schneider Intraoperative Diagnosis: FSB1: At least high-grade squamous dysplasia/carcinoma in situ with areas suspicious for invasion. Intraoperative Consult Pathologist(s): Carmel Patel MD medical consultant: Dr. Alessandro Arzate. LAB AP ASR DISCLAIMER One or more of the reagents used to perform assays on this specimen MAY have contained components considered to be analyte specific reagents (ASR's). ASR's have not been cleared or approved by the U.S. Food and Drug Administration. These assays were developed and their performance characteristics determined by the Department of Pathology at [facility]. The FDA does not require this [...] and negative controls which stained appropriately. 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 Comment on above: Performed By: #### V ERAB #### TING Knox ([id number]) [facility] ([facility]) [address] [place] [address] D Ag Ql (Bld) Positive Normal [facility] Comment on above: Performed By: #### V ERAB #### TING Knox ([id number]) [facility] ([facility]) [address] [place] [address] Verify ABO/Rh Group Test (VE RAB)on 05-11-2024 ABO group Nom (Bld) A [facility] D Ag Ql (Bld) Positive [facility] Office Visiton 04-25-2024 Follow-up visit [id number] [address] P 1940 M Date Provider Department Center 04/25/2024 Giovany-STACEY PATEL [facility] Family History Problem Relation Age of Onset Coronary artery disease Mother Kidney disease Mother Heart failure Mother Family Status - Relation Status Age at Mother Level of Service:[address] [place] OFFICE/OUTPATIENT NEW MODERATE MDM 45 MINUTES [facility] Ambulatory Visit Summaryon 1 06-18-2023 Ambulatory Visit Summary Ambulatory Visit Summary GINNYJEREMIE Annabelle :1940 Visit Date:04/17/2024 Ambulatory Visit Instructions Your Diagnosis Type 2 diabetes mellitus with hypercholesterolemia BMI 30.0-30.9,adult Exogenous obesity Former smoker Chronic GERD Coronary artery disease involving [place] coronary artery of [place] heart without angina pectoris Hypercholesterolemia Primary hypertension [...] Tab) fluticasone nasal (fluticasone Nasal 0.05 mg/inh [place]) furosemide (furosemide 20 mg Tab) irbesartan (irbesartan [...] Appointments Wednesday 2:30 PM EDT With: Where: [address] [address]- Wednesday 3:30 PM EDT With: Allison CASON, Demetrius Rosa Where: [address] [address]- Medications What How Much When Instructions Unchanged [...] fluticasone nasal (fluticasone Nasal 0.05 mg/ inh [place]) See instructions USE 1 SPRAY IN BOTH [...] By Mouth Every day Unchanged Misc Prescription ([facility] Prescription) See instructions one touch ultra test strips test sugars once a day Unchanged Misc Prescription ([facility] Prescription) See instructions one touch ultra lancets Use to test sugars once a day Unchanged multivitamin with minerals (Multivitamin, Therapeutic w/ Minerals) By Mouth Every day Unchanged Non-Formulary Medication ([facility] Medication) Transdermal Therapeutics up to four times [...] currently receivin (more content not included)... Normal [facility] CBC w/ Auto Diffon 4 Basophils/100 WBC (Bld) 0.8 % Normal 0.0-2.0 [facility] Comment on above: Performed By: #### 2 [id number] #### [facility] [address] [place] [address] Basophils/Leukocytes Auto (Bld) [Pure # fraction] 0.1 E9/L Normal 0.0-0.2 [facility] Comment on above: Performed By: #### 2 [id number] #### [facility] [address] [place] [address] Eosinophils (Bld) [#/Vol] 0.4 E9/L Normal 0.0-0.5 [facility] Comment on above: Performed By: #### 2 [id number] #### [facility] [address] [place] [address] Eosinophils/100 WBC (Bld) 4.6 % Normal 0.0-8.0 [facility] Comment on above: Performed By: #### 2 [id number] #### [facility] [address] [place] [address] Erythrocyte distribution width (RBC) [Ratio] 14.0 % Normal 10.9-14.2 [facility] Comment on above: Performed By: #### 2 [id number] #### [facility] [address] [place] [address] Hematocrit (Bld) [Volume fraction] 43.7 % Normal 37.7-49.0 [facility] Comment on above: Performed By: #### 2 [id number] #### [facility] [address] [place] [address] Hemoglobin (Bld) [Mass/Vol] 14.5 g/dL Normal 13.5-17.5 [facility] Comment on above: Performed By: #### 2 [id number] #### [facility] [address] [place] [address] Lymphocytes (Bld) [#/Vol] 2.0 E9/L Normal 1.0-4.0 [facility] Comment on above: Performed By: #### 2 668654 #### [facility] [address] [place] [address] Lymphocytes/100 WBC (Bld) 22.4 % Normal 14.0-50.0 [facility] Comment on above: Performed By: #### 2 787691 #### [facility] [address] [place] [address] MCH (RBC) [Entitic mass] 31.2 pg Normal 27.0-34.0 [facility] Comment on above: Performed By: #### 2 [id number] #### [facility] [address] [place] [address] MCHC (RBC) [Mass/Vol] 33.2 g/dL Normal 31.4-36.0 [facility] [facility] Comment on above: Performed By: #### 2 [id number] #### [facility] [address] [place] [address] MCV (RBC) [Entitic vol] 94.2 fL Normal 80.0-100.0 [facility] Comment on above: Performed By: #### 2 247304 #### [facility] [address] [place] [address] Monocytes (Bld) [#/Vol] 0.7 E9/L Normal 0.2-1.0 [facility] Comment on above: Performed By: #### 2 977547 #### [facility] [address] [place] [address] Neutrophils (Bld) [#/Vol] 5.7 E9/L Normal 2.0-7.5 [facility] Comment on above: Performed By: #### 2 565260 #### [facility] [address] [place] [address] Neutrophils/100 WBC (Bld) 64.7 % Normal 36.0-75.0 [facility] Comment on above: Performed By: #### 2 571015 #### [facility] [address] [place] [address] Platelet mean volume (Bld) [Entitic vol] 9.2 fL Normal 6.4-10.8 [facility] Comment on above: Performed By: #### 2 052641 #### [facility] [address] [place] [address] Platelets (Bld) [#/Vol] 243.0 E9/L Normal 150.0-500. 0 [facility] Comment on above: Performed By: #### 2 521884 #### [facility] [address] [place] [address] RBC (Bld) [#/Vol] 4.6 E12/L Normal 4.3-5.9 [facility] Comment on above: Performed By: #### 2 021612 #### [facility] [address] [place] [address] WBC corrected for nucl RBC Auto (Bld) [#/Vol] 8.9 E9/L Normal 4.0-11.[address] [facility] Comment on above: Performed By: #### 2 238871 #### [facility] [address] [place] [address] CHEMISTRYOrdered By: SYSTEM SYSTEM on 04-17-2024 Albumin [...] (Bld) [Mass fraction] 6.5 % High <=5.9% [facility] ChemAutoSS CMPon 04-17-2024 Albumin [Mass/Vol] 4.3 g/dL Normal 3.3-5.0 [facility] Comment on above: Performed By: #### 2 912225 #### [facility] [address] [place] [address] Albumin/Globulin (S) [Mass conc ratio] 1.7 Normal 1.1-2.2 [facility] Comment on above: Performed By: #### 2 774092 #### [facility] [address] [place] [address] ALP [Catalytic activity/Vol] 82 Int._Unit/L Normal 21-98 [facility] Comment on above: Performed By: #### 2 049104 #### [facility] [address] [place] [address] ALT No additional P-5'-P [Catalytic activity/Vol] 17 Int._Unit/L Normal 6-46 [facility] Comment on above: Performed By: #### 2 021576 #### [facility] [address] [place] [address] Anion gap [Moles/Vol] 10 mmol/L Normal 6-16 [facility] Comment on above: Performed By: #### 2 140000 #### [facility] [address] [place] [address] AST [Catalytic activity/Vol] 18 Int._Unit/L Normal 5-43 [facility] Comment on above: Performed By: #### 2 209445 #### [facility] [address] [place] [address] Bilirubin [Mass/Vol] 0.6 mg/dL Normal 0.0-1.1 [facility] Comment on above: Performed By: #### 2 551527 #### [facility] [address] [place] [address] Calcium [Mass/Vol] 9.7 mg/dL Normal 8.9-11.1 [facility] Comment on above: Performed By: #### 2 166946 #### [facility] [address] [place] [address] Chloride [Moles/Vol] 108 mmol/L Normal 101-111 [facility] Comment on above: Performed By: #### 2 533242 #### [facility] [address] [place] [address] CO2 [Moles/Vol] 27 mmol/L Normal 21-[address] [facility] Comment on above: Performed By: #### 2 957594 #### [facility] [address] [place] [address] Creatinine [Mass/Vol] 1.0 mg/dL Normal 0.5-1.3 [facility] Comment on above: Performed By: #### 2 643879 #### [facility] [address] [place] [address] Globulin (S) [Mass/Vol] 2.5 g/dL Normal 1.4-4.0 [facility] Comment on above: Performed By: #### 2 380784 #### [facility] [address] [place] [address] Glucose [Mass/Vol] 145 mg/dL Normal 55-199 [facility] Comment on above: Performed By: #### 2 201451 #### [facility] [address] [place] [address] Potassium [Moles/Vol] 4.2 mmol/L Normal 3.5-5.3 [facility] Comment on above: Performed By: #### 2 754764 #### [facility] [address] [place] [address] Protein [Mass/Vol] 6.8 g/dL Normal 6.0-7.8 [facility] Comment on above: Performed By: #### 2 080900 #### [facility] [address] [place] [address] Sodium [Moles/Vol] 141 mmol/L Normal 135-145 [facility] Comment on above: Performed By: #### 2 811469 #### [facility] [address] [place] [address] Urea nitrogen [Mass/Vol] 22 mg/dL High 5-21 [facility] Comment on above: Performed By: #### 2 169621 #### [facility] [address] [place] [address] Urea nitrogen/Creatinine [Mass ratio] 22 No Units High 10-20 [facility] Comment on above: Performed By: #### 2 261093 #### [facility] [address] [place] [address] Family Medicine Office/Clini c Noteon 04-17-2024 Family Medicine Office/Clinic Note Family Medicine Office/Clinic Note HPI Staff Jeremie is an 83 year old male presenting for follow up DM Do you have any of the following symptoms? Foot Exam: foot dr MARIE Eye Exam: has one in Dec. one earlier in the year for the [...] a referral to Dr. Marlene Schneider in [place] for further evaluation. The patient has a [...] or previously received 4274F Lab Specimen Collect 11729 Microalbumin Level Urine Most recent diastolic blood [...] or previously received 4274F Lab Specimen Collect 61137 Microalbumin Level Urine Most recent diastolic blood [...] or previously received 4274F Lab Specimen Collect 62333 Microalbumin Level Urine Most recent diastolic blood pressure <80 mm Hg 3078F Patient screen for fall risk: no falls in last year or 1 fall with no injury in last year 1101F Systolic BP <130 mm Hg (Most Recent) 3074F 4. Former smoker (Z87.891: Personal history of nicotine dependence) Please continue not to smoke. Ordered: influe (more content not included)... Normal [facility] Comment on above: Result Comment: Elec tronically Signed By: Allison CASON, Demetrius Branham.marco a\Date and Time Signed: 04/17/24 12:20 EST HEMATOLOGYOrdered [...] Normal 4.0 - 11.0 E9/L Remisol Heme [id number] 04-17-2024 HbA1c (Bld) [Mass fraction] 6.5 % High <=5.9 [facility] Comment on above: Performed By: #### 7 [id number] #### [facility] [address] [place] [address] U Microalbon 04-17-2024 Albumin DL <= 20 mg/L (U) [Mass/Vol] 0.7 mg/dL Normal 0.0-1.9 [facility] Comment on above: Performed By: #### 1 6082461 #### [facility] [address] [place] [address] eGFRon 04-17-2024 eGFR 74 mL/min/1.73 m2 Normal >=59 [facility] Comment on above: Performed By: #### 1 5390912 #### [facility] [address] [place] [address] Basic metabolic 2000 panelon 04-11-2024 Anion gap [Moles/Vol] 15 mmol/L Normal 10-20 [facility] Comment on above: Performed By: #### 2 4321-2 #### TING Knox (79998) [facility] ([facility]) [address] [place] [address] Calcium [Mass/Vol] 9.9 mg/dL Normal 8.6-10.6 [facility] Comment on above: Performed By: #### 2 4321-2 #### TING Knox (64013) [facility] ([facility]) [address] [place] [address] Chloride [Moles/Vol] 107 mmol/L Normal 98-107 [facility] Comment on above: Performed By: #### 2 4321-2 #### TING Knox (34650) [facility] ([facility]) [address] [place] [address] CO2 [Moles/Vol] 25 mmol/L Normal 21-32 [facility] Comment on above: Performed By: #### 2 4321-2 #### TING Knox (77217) [facility] ([facility]) [address] [place] [address] Creatinine [Mass/Vol] 0.96 mg/dL Normal 0.50-1.30 [facility] Comment on above: Performed By: #### 2 4321-2 #### TING Knox (98493) [facility] ([facility]) [address] [place] [address] Glomerular filtration rate/1.73 sq M.predicted 78 mL/min/1.73m*2 Normal >60 [facility] Comment on above: Result Comment: Calc ulations of estimated GFR are performed using the 2020 CKD-EPI Study Refit equation without the race variable for the IDMS-Traceable creatinine methods. https://jasn.asnjournals.org/content/early//ASN.61629 87751 Performed By: #### 2 4321-2 #### TING Knox (33910) [facility] ([facility]) [address] [place] [address] Glucose [Mass/Vol] 109 mg/dL High 74-99 [facility] Comment on above: Performed By: #### 2 4321-2 #### TING Knox (81456) [facility] ([facility]) [address] [place] [address] Potassium [Moles/Vol] 4.5 mmol/L Normal 3.5-5.3 [facility] Comment on above: Performed By: #### 2 4321-2 #### TING Knox (89665) [facility] ([facility]) [address] [place] [address] Sodium [Moles/Vol] 142 mmol/L Normal 136-145 [facility] Comment on above: Performed By: #### 2 4321-2 #### TING Knox (20192) [facility] ([facility]) [address] [place] [address] Urea nitrogen [Mass/Vol] 18 mg/dL Normal 6-23 [facility] Comment on above: Performed By: #### 2 4321-2 #### TING Knox (77727) [facility] ([facility]) [address] [place] [address] CBC panel Auto (Bld)on 04-11 Erythrocyte distribution width (RBC) [Ratio] 13.3 % Normal 11.5-14.5 [facility] Comment on above: Performed By: #### 5 8410-2 #### TING Knox (54589) [facility] ([facility]) [address] [place] [address] Hematocrit (Bld) [Volume fraction] 45.5 % Normal 41.0-52.0 [facility] Comment on above: Performed By: #### 5 8410-2 #### TING Knox (55581) [facility] ([facility]) [address] [place] [address] Hemoglobin (Bld) [Mass/Vol] 14.5 g/dL Normal 13.5-17.5 [facility] Comment on above: Performed By: #### 5 8410-2 #### TING Knox (24246) [facility] ([facility]) [address] [place] [address] MCH (RBC) [Entitic mass] 30.1 pg Normal 26.0-34.0 [facility] Comment on above: Performed By: #### 5 8410-2 #### TING Knox (81662) [facility] ([facility]) [address] [place] [address] MCHC (RBC) [Mass/Vol] 31.9 g/dL Low 32.0-36.0 [facility] Comment on above: Performed By: #### 5 8410-2 #### TING VIEIRA L (96366) [facility] ([facility]) [address] [place] [address] MCV (RBC) [Entitic vol] 94 fL Normal 80-100 [facility] Comment on above: Performed By: #### 5 8410-2 #### TING VICENTEMOTZER L (35564) [facility] ([facility]) [address] [place] [address] Nucleated RBC/100 WBC (Bld) [Ratio] 0.0 /100 WBCs Normal 0.0-0.0 [facility] Comment on above: Performed By: #### 5 8410-2 #### TING VIEIRA L (34984) [facility] ([facility]) [address] [place] [address] Platelets (Bld) [#/Vol] 254 x10*3/uL Normal 150-450 [facility] Comment on above: Performed By: #### 5 8410-2 #### TING VIEIRA L (86965) [facility] ([facility]) [address] [place] [address] RBC (Bld) [#/Vol] 4.82 x10*6/uL Normal 4.50-5.90 [facility] Comment on above: Performed By: #### 5 8410-2 #### TING VICENTEMOTZNIKO L (99665) [facility] ([facility]) [address] [place] [address] WBC (Bld) [#/Vol] 8.5 x10*3/uL Normal 4.4-11.[address] [facility] Comment on above: Performed By: #### 5 8410-2 #### TING VICENTEMOTZNIKO L (46705) [facility] ([facility]) [address] [place] [address] Surgical pathology studyon 1 06-07-2023 Surgical pathology study Pathology report.total SEE COMMENT Surgical Pathology Case: [id number] Authorizing Provider: Mary Schneider MD Collected: 04/07/2024 1137 Ordering Location: [facility] Received: 04/07/2024 1145 Pathologist: Alessandro Arzate [...] PAS is negative for heart fungal organisms. medical consultant: Dr. Jose Leary. Laboratory comment By [...] is submitted in toto in one cassette. [facility] GLUCOSE, BLOOD (POC)on 03-27 Glucose [Mass/Vol] 113 mg/dL Abnormal 74 - 99 mg/dL [facility] Comment on above: Location:[facility], [address] [place] [address] , [place], [place], [address] The Accu-Chek Inform II glucose meter has [...] Interpretation and review of laboratory results Abnormal [facility] NM PET/CT SKULL-THIGH INITon 03-27-2024 [...] * Uptake Time: 61 minutes * Radiopharmaceutical: [id number] (FDG) COMPARISON: No previous FDG PET/CT available [...] of you (more content not included)... Normal [facility] Visit Summaryon 1 05-23-2023 Ambulatory Visit Summary [...] Tab) fluticasone nasal (fluticasone Nasal 0.05 mg/inh [place]) furosemide (furosemide 20 mg Tab) irbesartan (irbesartan [...] EST With: Allison CASON, Demetrius Rosa Where: [address] [address]- Wednesday 2:30 PM EDT With: Where: [address] [address]- Medications What How Much When Instructions Unchanged [...] fluticasone nasal (fluticasone Nasal 0.05 mg/ inh [place]) See instructions USE 1 SPRAY IN BOTH [...] (Misc Medication (more content not included)... 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 RUQ pain (R10.11: [...] Salomón Villarreal [facility] node [facility] 02[facility]29[facility]24 [facility]: A, right cervical lymph node, core biopsy: [...] spondylosis Chronic GERD Coronary artery disease involving grand traverse coronary artery of grand traverse heart without angina pectoris Diabetic autonomic neuropathy [...] pacemaker proced (more content not included)... Normal [facility] Comment on above: Result Comment: Elec tronically Signed By: Beatriz CASON, Inez Funes\.br\Date and Time Signed: 03/23/24 14:49 EST Obdulio 02-29-2024 L Specimen: [id number] Received: 02/29/24 [facility] Num: [id number] Spec Type: Surgical Subm Dr: LUC HAM [...] Account Attending Physician Jeremie Bennett 83/M LABELL [id number] LUC HAM MD SPEC NUM: [id number] RECD: 02/29/24 STATUS: LISA KIRBY NUM: [id number] DONTRELL: 02/29/24- SUBM DR: LUC HAM MD ENTERED: 02/29/[address] [facility] [address]: Nicolette,Myra SPEC TYPE: Surgical DEPT: MANNY MONTEZ ENTERED BY: [id number] RECV BY: [id number] ORDERED: S 100, Mucicarmine, HE/6, Gross/Micro L4/2, [...] insufficient lymphocytes Addendum Signed (signature on file) Yair-Anup Sanchez MD 03/04/24 1035 Pathological Diagnosis A, right cervical lymph node, core biopsy: -Positive for metastatic carcinoma, 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 Note: Specimen: [id number] Received: 02/29/24 Status: LISA Kirby Num: [id number] Spec Type: Surgical Subm Dr: LUC HAM MD Tissues: A Lymph Node - Biopsy (Needle or Incisional) (RT CERVICAL LYMPH NODE) B Lymph Node - Biopsy (Needle or Incisional) (RT CERVICAL LYMPH NODE-SALIN) Procedures: S 100, Mucicarmine, HE/6, Gross/Micro L4/2, CK5 6, CK20, CK 7, NAPSIN A, CINtec p16, TTF1, NKX3.1, MOC31, GATA3, p40, DIFF QWIK Patient: Jeremie Bennett [id number] (Continued) Specimen: [id number] Received: 02/29/24 (Continued) Pathological Diagnosis (Continued) Signed (signature on file) Tae Sanchez MD 03/04/24 1033 Specimen: [id number] Received: 02/29/24 Status: LISA Kirby Num: [id number] Spec Type: Surgical Subm Dr: LUC HAM MD Tissues: A Lymph Node - Biopsy (Needle or Incisional) (RT CERVICAL LYMPH NODE) B Lymph Node - Biopsy (Needle or Incisional) (RT CERVICAL LYMPH NODE-SALIN) Procedures: S 100, Mucicarmine, HE/6, Gross/Micro L4/2, CK5 6, CK20, CK 7, NAPSIN A, CINtec p16, TTF1, NKX3.1, MOC31, GATA3, p40, DIFF QWIK Patient: Jeremie Bennett [id number] (Continued) Specimen: [id number] Received: 02/29/24 (Continued) Pathological Diagnosis (Continued) -The tumor cells [...] c (more content not included)... Normal [facility] CT SOFT [...] Comment: CT S/ T Neck W at [facility]. Please call patient to schedule. Itz 02-02-2024 PRICE Telephone ([facility]) ----- JEREMIE BENNETT ([id number]) 1940 M Date Time Provider Department 02/02/24 [...] and it was completed in 12/2023 at [facility]. Our office will request results for Dr. Pringle's review. Follow up will be determined upon Dr. Pringle's review of results. Carlitos Beckman 02/04/2024 9:19 AM Signed Surveillance imaging completed at OSH for IPMN surveillance. Carlitos Beckman 02/07/2024 9:31 AM Signed IPMN surveillance. 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 - omeprazole (PRILOSEC) 40 mg capsule Take [...] Encounter Status:Closed by CARLITOS BECKMAN on 02/18/24 Normal [facility] Ambulatory Visit Summaryon 0 02-01-2024 Ambulatory Visit [...] Tab) fluticasone nasal (fluticasone Nasal 0.05 mg/inh [place]) furosemide (furosemide 20 mg Tab) irbesartan (irbesartan [...] Beatriz CASON, Inez Funes Where: [facility] [address] [place] [address]- Wednesday 10:00 AM EST With: Demetrius Cooper MD Where: [address] [address]- Wednesday 2:30 PM EDT With: Where: [address] [address]- Medications What How Much When Why Instructions [...] fluticasone nasal (fluticasone Nasal 0.05 mg/ inh [place]) See instructions USE 1 SPRAY IN BOTH [...] See instructions (more content not included)... 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 Household alcohol concerns: No., 11/08/2023 [facility] (more content not included)... Normal [facility] Comment on above: Result Comment: Elec [...] mg Tab) fluticasone nasal (Flonase 0.05 mg/inh [place]) furosemide (furosemide 20 mg Tab) irbesartan (irbesartan [...] AM EDT With: Demetrius Cooper MD Where: [address] [address]- 2023 2:45 PM EST With: Beatriz CASON, Inez Funes Where: [facility] [address] [place], [place] [address]e [address] [place] [address]- Wednesday 10:00 AM EST With: Demetrius Cooper MD Where: [address] [address]- Wednesday 2:30 PM EDT With: Where: [place] [id number]- Medications What How Much When Why Instructions [...] Unchanged fluticasone nasal (Flonase 0.05 mg/ inh [place]) 1 Sprays Nasal Inhalation 2 times a [...] zonisamide (z (more content not included)... 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 Normal [facility] Comment on above: Result Comment: Elec tronically Signed By: Allison CASON, Demetrius Branham.br\Date and Time Signed: 01/10/24 10:38 EDT Itz 04-05-2023 GREGN Telephone ([id number]) ----- JEREMIE BENNETT ([id number]) 1940 M Date Time Provider Department 04/05/23 VAISHALI PRINGLE [id number] During your visit today, we recorded the following information about you: Lolly Dumont 04/05/2023 9:55 AM Signed Received records from [facility]. Reports for imaging listed below scanned. Images pushed through 09/27/2019 US Right Upper Quad 03/31/2020 CT ABD/PEL US Right Upper Quad [facility] MRI Abdomen 02/22/2023 US [...] mucinous neoplasm) [D49.0] Order(s):GI TUMOR BOARD - [place] [APPT42] Order #: [id number]: 1 FUTURE Prescriptions as of 04/06/2023 - isosorbide mononitrate ER (IMDUR) 30 mg 24 hr tablet Take 30 mg by mouth. - clopidogrel (PLAVIX) 75 mg tablet - furosemide (LASIX) 20 mg tablet Take 20 mg by mouth. - fluticasone (FLONASE) 50 mcg/actuation nasal spray 1 [place]. - omeprazole (PRILOSEC) 40 mg capsule Take [...] by LAMONTE COUCH on 04/06/23 [facility] CNOVon 04-01-2023 CNOV Office Visit ([id number] ) ----- JEREMIE BENNETT ([id number]) 1940 M Date Time Provider Department 04/01/23 1:00 PM VAISHALI PRINGLE [id number] During your visit today, we recorded the [...] way of the shared medical record or [employer]. Jeremie Bennett is a 82 year [...] GI re (more content not included)... Normal [facility] CHEMISTRYOrdered By: SYSTEM SYSTEM on 03-10-2023 Albumin [...] mmol/L Normal 101 - 1 11 mmol/L FT Remisol CO2 [Moles/Vol] 25 mmol/L Normal 21 - 31 mmol/L [facility] Creatinine [Mass/Vol] 1.1 mg/dL Normal 0.5 - 1.3 mg/dL [facility] GFR/1.73 sq M.predicted among non-blacks MDRD (S/P/Bld) [Vol rate/Area] 67 mL/min/1.73 m2 Normal >=59mL/min /1.73 m2 [facility] Chem S Comment on above: Interpretive Data: C hronic kidney disease could be indicated at eGFR's of less than 60 mL/min/1.73m2. Kidney failure is indicated at less than 15 mL/min/1.73m2. Globulin (S) [Mass/Vol] 3.3 g/dL Normal 1.4 - 4.0 gm/dL FT [facility]isol Glucose [Mass/Vol] 136 mg/dL Normal 55 - 199 mg/dL [facility] Remisol Comment on above: Interpretive Data: I [...] 5 - 21 mg/dL [facility] Urea nitrogen/Creatinine [Mass ratio] 18 mg/mg Normal 10 - 20 FT [facility]isol HEMATOLOGYOrdered By: SYSTEM SYSTEM on 03-10-2023 [...] 5.8 E9/L Normal 2.0 - 7.5 E9/L FT HemeAutoSS HEMATOLOGYOrdered By: Ethel Peters on 03-10-2023 [...] 8.4 E9/L Normal 4.0 - 11.0 E9/L [facility] HemeAutoSS MICRO OTHER TESTSOrdered By: Elba Matteo on 03-10-2023 Fecal WBC Lactoferrin Negative 3 (03/10/23 12:45 PM) Normal Negative [facility] Man Sero Comment on above: Interpretive Data: T renée semi-quantitative detection of elevated levels of fecal lactoferrin is a marker for fecal leukocytes and an indication of intestinal inflammation. CHEMISTRYOrdered By: Yash Shah on 11-23-2022 Albumin DL <= 20 mg/L (U) [Mass/Vol] microgram/mL Normal 0.0 - 19.0 mcg/mL [facility] Remisol Albumin Elph (U) [Mass fraction] mg/dL Invalid Interpretation Code [facility] Remisol Creatinine (U) [Mass/Vol] 15.9 mg/dL Invalid Interpretation Code [facility] Chem S U Prot/Creat Ratio [facility] Invalid Interpretation Code 0.00 - 200.00 [facility] Chem S Comment on above: Result Comment: Unab le to calculate due to Protein being less than analyzer reportable range. CBC AUTO DIFFon 09-29-2022 BASO # 0.1 103/ul Normal 0.0-0.1 [facility] Comment on above: Performed By: #### C BC #### [facility] [address] [place] [address] Dr. Ramsey Sanchez Basophils/100 WBC (Bld) 0.7 % Normal 0.2-2.0 [facility] Comment on above: Performed By: #### C BC #### [facility] [address] [place] [address] Dr. Ramsey Sanchez EO # 0.2 103/ul Normal 0.0-0.7 [facility] Comment on above: Performed By: #### C BC #### [facility] [address] [address] [address] Ramsey Sanchez Eosinophils/100 WBC (Bld) 1.5 % Normal 0.9-7.0 [facility] Comment on above: Performed By: #### C BC #### [facility] [address] [address] [address] Ramsey Sanchez Erythrocyte distribution width (RBC) [Ratio] 13.6 % Normal 11.0-15.0 [facility] Comment on above: Performed By: #### C BC #### [facility] [address] [place] [address] Dr. Ramsey Sanchez Hematocrit (Bld) [Volume fraction] 43.5 % Normal 42.0-54.0 [facility] Comment on above: Performed By: #### C BC #### [facility] [address] [place] [address] Dr. Ramsey Sanchez Hemoglobin (Bld) [Mass/Vol] 13.9 g/dL Critically low 14.0-18.0 [facility] Comment on above: Performed By: #### C BC #### [facility] [address] [place] [address] Dr. Ramsey Sanchez IG # 0.29 10e3/ul Critically high 0.00-0.03 [facility] Comment on above: Performed By: #### C BC #### [facility] [address] [place] [address] Dr. Ramsey Sanchez IG % 2.9 % Critically high 0.0-0.5 [facility] Comment on above: Performed By: #### C BC #### [facility] [address] [place] [address] Dr. Ramsey Sanchez LYMPH # 2.1 103/ul Normal 1.2-3.8 [facility] Comment on above: Performed By: #### C BC #### [facility] [address] [place] [address] Dr. Ramsey Sanchez Lymphocytes/100 WBC (Bld) 20.8 % Normal 20.5-60.0 [facility] Comment on above: Performed By: #### C BC #### [facility] [address] [place] [address] Dr. Ramsey Sanchez MANUAL DIFF REQ NO Normal [facility] Comment on above: Performed By: #### C BC #### [facility] [address] [place] [address] Dr. Ramsey Sanchez MCH (RBC) [Entitic mass] 29.6 pg Normal 25.9-34.0 [facility] Comment on above: Performed By: #### C BC #### [facility] [address] [place] [address] Dr. Ramsey Sanchez MCHC (RBC) [Mass/Vol] 32.0 g/dL Normal 29.9-35.2 [facility] Comment on above: Performed By: #### C BC #### [facility] [address] [place] [address] Dr. Ramsey Sanchez MCV (RBC) [Entitic vol] 92.6 fL Normal 80.0-94.0 [facility] Comment on above: Performed By: #### C BC #### [facility] [address] [place] [address] Dr. Ramsey Sanchez MONO # 0.8 103/ul Normal 0.3-0.8 [facility] Comment on above: Performed By: #### C BC #### [facility] [address] [place] [address] Dr. Ramsey Sanchez Monocytes/100 WBC (Bld) 8.3 % Normal 1.7-12.0 [facility] Comment on above: Performed By: #### C BC #### [facility] [address] [place] [address] Dr. Ramsey Sanchez NEUT # 6.5 103/ul Normal 1.4-6.5 [facility] Comment on above: Performed By: #### C BC #### [facility] [address] [place] [address] Dr. Ramsey Sanchez Neutrophils/100 WBC (Bld) 65.8 % Normal 43.0-75.0 [facility] Comment on above: Performed By: #### C BC #### [facility] [address] [place] [address] Dr. Ramsey Sanchez Platelet mean volume (Bld) [Entitic vol] 11.1 fL Normal 9.5-13.5 [facility] Comment on above: Performed By: #### C BC #### [facility] [address] [place] [address] Dr. Ramsey Sanchez PLT 198 103/ul Normal 150-450 [facility] Comment on above: Performed By: #### C BC #### [facility] [address] [place] [address] Dr. Ramsey Sanchez RBC 4.70 106/ul Normal 4.70-6.10 [facility] Comment on above: Performed By: #### C BC #### [facility] [address] [place] [address] Dr. Ramsey Sanchez WBC 9.9 103/ul Normal 4.0-11.0 [facility] Comment on above: Performed By: #### C BC #### [facility] [address] [place] [address] Dr. Ramsey Sanchez ER URINE PROFILEon 3 Bilirubin Ql (U) Negative Normal NEGATIVE [facility] Comment on above: Performed By: #### E RUR #### [facility] [address] [place] [address] Dr. Ramsey Sanchez Clarity (U) CLEAR Normal CLEAR [facility] Comment on above: Performed By: #### E RUR #### [facility] [address] [place] [address] Dr. Ramsey Sanchez Color (U) YELLOW Normal YELLOW [facility] Comment on above: Performed By: #### E RUR #### [facility] [address] [place] [address] Dr. Ramsey Sanchez ERUCATHYD A micrscopic examina tion will be performed if indicated. Normal [facility] Comment on above: Performed By: #### E RUR #### [facility] [address] [place] [address] Dr. Ramsey Sanchez Glucose Ql (U) Negative Normal NEGATIVE [facility] Comment on above: Performed By: #### E RUR #### [facility] [address] [place] [address] Dr. Ramsey Sanchez Hemoglobin Ql (U) Negative Normal NEGATIVE [facility] Comment on above: Performed By: #### E RUR #### [facility] [address] [place] [address] Dr. Ramsey Sanchez Ketones Ql (U) Negative Normal NEGATIVE [facility] Comment on above: Performed By: #### E RUR #### [facility] [address] [place] [address] Dr. Ramsey Sanchez LEUKOCYTES Negative Normal NEGATIVE [facility] Comment on above: Performed By: #### E RUR #### [facility] [address] [place] [address] Dr. Ramsey Sanchez Nitrite Ql (U) Negative Normal NEGATIVE [facility] Comment on above: Performed By: #### E RUR #### [facility] [address] [place] [address] Dr. Ramsey Sanchez pH (U) 5.5 [pH] Normal 5-9 [facility] Comment on above: Performed By: #### E RUR #### [facility] [address] [place] [address] Dr. Ramsey Sanchez SPEC GRAVITY 1.020 Normal 1.005-<=1. 025 [facility] Comment on above: Performed By: #### E RUR #### [facility] [address] [place] [address] Dr. Ramsey Sanchez UA PROTEIN Negative Normal NEGATIVE/ TRACE [facility] Comment on above: Performed By: #### E RUR #### [facility] [address] [place] [address] Dr. Ramsey Sanchez UR MICRO IND NOT INDICATED Normal [facility] Comment on above: Performed By: #### E RUR #### [facility] [address] [place] [address] Dr. Ramsey Sanchez Urobilinogen Qn (U) 0.2 {Leatha'U}/dL Normal 0.2 - 1. 0 [facility] Comment on above: Performed By: #### E RUR #### [facility] [address] [place] [address] Dr. Ramsey Sanchez LACTATE/LACTIC ACIDon 2022 Lactate [Moles/Vol] 1.7 mmol/L Normal 0.4-2.0 [facility] Comment on above: Performed By: #### L ACT #### [facility] [address] [address] [address] Ramsey Sanchez PROF 14(COMP METB)on 023 Albumin [Mass/Vol] 3.1 g/dL Critically low 3.4-5.0 [facility] Comment on above: Performed By: #### C MP, HSTROPN #### [facility] [address] [address] [address] Ramsey Sanchez Albumin/Globulin [Mass ratio] 0.8 {ratio} Normal [facility] Comment on above: Performed By: #### C MP, HSTROPN #### [facility] [address] [address] [address] Ramsey Sanchez ALP [Catalytic activity/Vol] 73 U/L Normal 46-116 [facility] Comment on above: Performed By: #### C MP, HSTROPN #### [facility] [address] [place] [address] Dr. Ramsey Sanchez ALT [Catalytic activity/Vol] 22 U/L Normal 16-63 [facility] Comment on above: Performed By: #### C MP, HSTROPN #### [facility] [address] [address] [address] Ramsey Sanchez Anion gap [Moles/Vol] 13.5 mmol/L Normal [facility] Comment on above: Performed By: #### C MP, HSTROPN #### [facility] [address] [address] [address] Ramsey Sanchez AST [Catalytic activity/Vol] 26 U/L Normal 15-37 [facility] Comment on above: Performed By: #### C MP, HSTROPN #### [facility] [address] [address] [address] Ramsey Sanchez Bilirubin [Mass/Vol] 0.4 mg/dL Normal 0.2-1.0 [facility] Comment on above: Performed By: #### C MP, HSTROPN #### [facility] [address] [address] [address] Ramsey Sanchez Calcium [Mass/Vol] 8.4 mg/dL Critically low 8.5-10.1 [facility] Comment on above: Performed By: #### C LISANDRO, HSTROPN #### [facility] [address] [place] [address] Dr. Ramsey Sanchez Chloride [Moles/Vol] 107 mmol/L Normal 98-107 [facility] Comment on above: Performed By: #### C LISANDRO, HSTROPN #### [facility] [address] [place] [address] Dr. Ramsey Sanchez CO2 [Moles/Vol] 26.1 mmol/L Normal 21.0-32.0 [facility] Comment on above: Performed By: #### C LISANDRO, HSTROPN #### [facility] [address] [place] [address] Dr. Ramsey Sanchez Creatinine [Mass/Vol] 0.94 mg/dL Normal 0.70-1.30 [facility] Comment on above: Performed By: #### C LISANDRO, HSTROPN #### [facility] [address] [place] [address] Dr. Ramsey Sanchez EGFR-AF KOSOVAN >60 Normal >=60 [facility] Comment on above: Performed By: #### C LISANDRO, HSTROPN #### [facility] [address] [place] [address] Dr. Ramsey Sanchez EGFR-NON AF KOSOVAN >60 Normal >=60 [facility] Comment on above: Performed By: #### C LISANDRO, HSTROPN #### [facility] [address] [place] [address] Dr. Ramsey Sanchez Globulin (S) [Mass/Vol] 3.7 g/dL Normal [facility] Comment on above: Performed By: #### C LISANDRO, HSTROPN #### [facility] [address] [place] [address] Dr. Ramsey Sanchez Glucose [Mass/Vol] 118 mg/dL Critically high 74-106 [facility] Comment on above: Performed By: #### C LISANDRO, HSTROPN #### [facility] [address] [place] [address] Dr. Ramsey Sanchez Potassium [Moles/Vol] 3.6 mmol/L Normal 3.5-5.1 [facility] Comment on above: Performed By: #### C MP, HSTROPN #### [facility] [address] [address] [address] Ramsey Sanchez Protein [Mass/Vol] 6.8 g/dL Normal 6.4-8.2 [facility] Comment on above: Performed By: #### C MP, HSTROPN #### [facility] [address] [address] [address] Ramsey Sanchez Sodium [Moles/Vol] 143 mmol/L Normal 136-145 [facility] Comment on above: Performed By: #### C LISANDRO, HSTROPN #### [facility] [address] [address] [address] Ramsey Sanchez Urea nitrogen [Mass/Vol] 19.0 mg/dL Critically high 7.0-18.0 [facility] Comment on above: Performed By: #### C LISANDRO, HSTROPN #### [facility] [address] [address] [address] Ramsey Sanchez Urea nitrogen/Creatinine [Mass ratio] 20.2 mg/mg Normal [facility] Comment on above: Performed By: #### C LISANDRO, HSTROPN #### [facility] [address] [place] [address] Dr. Ramsey Sanchez TROPONIN, HIGH SENSITIVITYon 09-29-2022 HSTROP 9.8 pg/mL Normal 4.0-76.1 [facility] Comment on above: Result Comment: CUT- OFF POINTS HAVE BEEN ESTABLISHED BASED ON THE FOURTH UNIVERSAL DEFINITIONS OF MYOCARDIAL INFARCTION. THE UPPER REFERENCE LIMIT (URL) OF TROPONIN, DEFINED THE 99TH PERCENTILE OF cTnI DISTRIBUTION IN A REFERENCE POPULATION, HAS BEEN CONFIRMED THE DECISION THRESHOLD FOR AL DIAGNOSIS. Performed By: #### C MP, HSTROPN #### [facility] [address] [address] [address] Ramsey Sanchez XR CHEST 1 Von [...] hardware and overlying objects out of the [id number]. Electronically authenticated by: ALANNA CARLOS Date: 2022-09-29 16:37 Normal [facility] BNPon 09-25-2022 Natriuretic peptide B (Bld) [Mass/Vol] 720.0 pg/mL Normal <=1,800.0 [facility] Comment on above: Performed By: #### C XSTOOL #### [facility] [address] [address] [address] Ramsey Sanchez CARDIAC RAFI ADMITon 023 CK [Catalytic activity/Vol] 198 U/L Normal 39-308 [facility] Comment on above: Performed By: #### C XSTOOL #### [facility] [address] [address] [address] Ramsey Sanchez CK.MB [Mass/Vol] 2.62 ng/mL Normal <=3.60 [facility] Comment on above: Performed By: #### C XSTOOL #### [facility] [address] [address] [address] Ramsey Sanchez HSTROP 8.8 pg/mL Normal 4.0-76.1 [facility] Comment on above: Result Comment: CUT- OFF POINTS HAVE BEEN ESTABLISHED BASED ON THE FOURTH UNIVERSAL DEFINITIONS OF MYOCARDIAL INFARCTION. THE UPPER REFERENCE LIMIT (URL) OF TROPONIN, DEFINED THE 99TH PERCENTILE OF cTnI DISTRIBUTION IN A REFERENCE POPULATION, HAS BEEN CONFIRMED THE DECISION THRESHOLD FOR AL DIAGNOSIS. Performed By: #### C XSTOOL #### [facility] [address] [address] [address] Ramsey Sanchez MARILYN 69 ng/mL Normal 16-96 [facility] Comment on above: Performed By: #### C XSTOOL #### [facility] [address] [address] [address] Ramsey Sacnhez CBC AUTO DIFFon 09-25-2022 BASO # 0.0 103/ul Normal 0.0-0.1 [facility] Comment on above: Performed By: #### C BC #### [facility] [address] [place] [address] Dr. Ramsey Sanchez Basophils/100 WBC (Bld) 0.2 % Normal 0.2-2.0 [facility] Comment on above: Performed By: #### C BC #### [facility] [address] [place] [address] Dr. Ramsey Sanchez EO # 0.0 103/ul Normal 0.0-0.7 [facility] Comment on above: Performed By: #### C BC #### [facility] [address] [place] [address] Dr. Ramsey Sanchez Eosinophils/100 WBC (Bld) 0.1 % Critically low 0.9-7.0 [facility] Comment on above: Performed By: #### C BC #### [facility] [address] [place] [address] Dr. Ramsey Sanchez Erythrocyte distribution width (RBC) [Ratio] 14.0 % Normal 11.0-15.0 [facility] Comment on above: Performed By: #### C BC #### [facility] [address] [place] [address] Dr. Ramsey Sanchez Hematocrit (Bld) [Volume fraction] 45.4 % Normal 42.0-54.0 [facility] Comment on above: Performed By: #### C BC #### [facility] [address] [place] [address] Dr. Ramsey Sanchez Hemoglobin (Bld) [Mass/Vol] 14.4 g/dL Normal 14.0-18.0 [facility] Comment on above: Performed By: #### C BC #### [facility] [address] [address] [address] Ramsey Sanchez IG # 0.08 10e3/ul Critically high 0.00-0.03 [facility] Comment on above: Performed By: #### C BC #### [facility] [address] [place] [address] Dr. Ramsey Sanchez IG % 0.9 % Critically high 0.0-0.5 [facility] Comment on above: Performed By: #### C BC #### [facility] [address] [place] [address] Dr. Ramsey Sanchez LYMPH # 1.6 103/ul Normal 1.2-3.8 [facility] Comment on above: Performed By: #### C BC #### [facility] [address] [place] [address] Dr. Ramsey Sanchez Lymphocytes/100 WBC (Bld) 17.9 % Critically low 20.5-60.0 [facility] Comment on above: Performed By: #### C BC #### [facility] [address] [place] [address] Dr. Ramsey Sanchez MANUAL DIFF REQ NO Normal [facility] Comment on above: Performed By: #### C BC #### [facility] [address] [place] [address] Dr. Ramsey Sanchez MCH (RBC) [Entitic mass] 29.8 pg Normal 25.9-34.0 [facility] Comment on above: Performed By: #### C BC #### [facility] [address] [place] [address] Dr. Ramsey Sanchez MCHC (RBC) [Mass/Vol] 31.7 g/dL Normal 29.9-35.2 [facility] Comment on above: Performed By: #### C BC #### [facility] [address] [place] [address] Dr. Ramsey Sanchez MCV (RBC) [Entitic vol] 94.0 fL Normal 80.0-94.0 [facility] Comment on above: Performed By: #### C BC #### [facility] [address] [address] [address] Ramsey Sanchez MONO # 0.9 103/ul Critically high 0.3-0.8 [facility] Comment on above: Performed By: #### C BC #### [facility] [address] [address] [address] Ramsey Sanchez Monocytes/100 WBC (Bld) 9.6 % Normal 1.7-12.0 [facility] Comment on above: Performed By: #### C BC #### [facility] [address] [place] [address] Dr. Ramsey Sanchez NEUT # 6.3 103/ul Normal 1.4-6.5 [facility] Comment on above: Performed By: #### C BC #### [facility] [address] [place] [address] Dr. Ramsey Sanchez Neutrophils/100 WBC (Bld) 71.3 % Normal 43.0-75.0 [facility] Comment on above: Performed By: #### C BC #### [facility] [address] [place] [address] Dr. Ramsey Sanchez Platelet mean volume (Bld) [Entitic vol] 11.0 fL Normal 9.5-13.5 [facility] Comment on above: Performed By: #### C BC #### [facility] [address] [place] [address] Dr. Ramsey Sanchez PLT 203 103/ul Normal 150-450 [facility] Comment on above: Performed By: #### C BC #### [facility] [address] [place] [address] Dr. Ramsey Sanchez RBC 4.83 106/ul Normal 4.70-6.10 [facility] Comment on above: Performed By: #### C BC #### [facility] [address] [place] [address] Dr. Ramsey Sanchez WBC 8.9 103/ul Normal 4.0-11.0 [facility] Comment on above: Performed By: #### C BC #### [facility] [address] [place] [address] Dr. Ramsey Sanchez LACTATE/LACTIC ACIDon 2022 Lactate [Moles/Vol] 1.0 mmol/L Normal 0.4-2.0 [facility] Comment on above: Performed By: #### C BC #### [facility] [address] [address] [address] Ramsey Sanchez PROF 14(COMP METB)on 023 Albumin [Mass/Vol] 3.7 g/dL Normal 3.4-5.0 [facility] Comment on above: Performed By: #### C XSTOOL #### [facility] [address] [address] [address] Ramsey Sanchez Albumin/Globulin [Mass ratio] 0.9 {ratio} Normal [facility] Comment on above: Performed By: #### C XSTOOL #### [facility] [address] [place] [address] Dr. Ramsey Sanchez ALP [Catalytic activity/Vol] 68 U/L Normal 46-116 [facility] Comment on above: Performed By: #### C XSTOOL #### [facility] [address] [address] [address] Ramsey Sanchez ALT [Catalytic activity/Vol] 23 U/L Normal 16-63 [facility] Comment on above: Performed By: #### C XSTOOL #### [facility] [address] [address] [address] Ramsey Sanchez Anion gap [Moles/Vol] 12.6 mmol/L Normal [facility] Comment on above: Performed By: #### C XSTOOL #### [facility] [address] [address] [address] Ramsey Sanchez AST [Catalytic activity/Vol] 21 U/L Normal 15-37 [facility] Comment on above: Performed By: #### C XSTOOL #### [facility] [address] [address] [address] Ramsey Sanchez Bilirubin [Mass/Vol] 0.3 mg/dL Normal 0.2-1.0 [facility] Comment on above: Performed By: #### C XSTOOL #### [facility] [address] [address] [address] Ramsey Sanchez Calcium [Mass/Vol] 8.8 mg/dL Normal 8.5-10.1 [facility] Comment on above: Performed By: #### C XSTOOL #### [facility] [address] [address] [address] Ramsey Sanchez Chloride [Moles/Vol] 104 mmol/L Normal 98-107 [facility] Comment on above: Performed By: #### C XSTOOL #### [facility] [address] [address] [address] Ramsey Sanchez CO2 [Moles/Vol] 26.7 mmol/L Normal 21.0-32.0 [facility] Comment on above: Performed By: #### C XSTOOL #### [facility] [address] [place] [address] Dr. Ramsey Sanchez Creatinine [Mass/Vol] 1.27 mg/dL Normal 0.70-1.30 [facility] Comment on above: Performed By: #### C XSTOOL #### [facility] [address] [address] [address] Ramsey Sanchez EGFR-AF KOSOVAN >60 Normal >=60 [facility] Comment on above: Performed By: #### C XSTOOL #### [facility] [address] [place] [address] Dr. Ramsey Sanchez EGFR-NON AF KOSOVAN 54 mL/min/1.73m2 Critically low >=60 [facility] Comment on above: Performed By: #### C XSTOOL #### [facility] [address] [address] [address] Ramsey Sanchez Globulin (S) [Mass/Vol] 3.9 g/dL Normal [facility] Comment on above: Performed By: #### C XSTOOL #### [facility] [address] [address] [address] Ramsey Sanchez Glucose [Mass/Vol] 114 mg/dL Critically high 74-106 [facility] Comment on above: Performed By: #### C XSTOOL #### [facility] [address] [address] [address] Ramsey Sanchez Potassium [Moles/Vol] 4.3 mmol/L Normal 3.5-5.1 [facility] Comment on above: Performed By: #### C XSTOOL #### [facility] [address] [address] [address] Ramsey Sanchez Protein [Mass/Vol] 7.6 g/dL Normal 6.4-8.2 [facility] Comment on above: Performed By: #### C XSTOOL #### [facility] [address] [address] [address] Ramsey Sanchez Sodium [Moles/Vol] 139 mmol/L Normal 136-145 [facility] Comment on above: Performed By: #### C XSTOOL #### [facility] [address] [address] [address] Ramsey Sanchez Urea nitrogen [Mass/Vol] 19.0 mg/dL Critically high 7.0-18.0 [facility] Comment on above: Performed By: #### C XSTOOL #### [facility] [address] [address] [address] Ramsey Sanchez Urea nitrogen/Creatinine [Mass ratio] 15.0 mg/mg Normal [facility] Comment on above: Performed By: #### C XSTOOL #### [facility] [address] [address] [address] Ramsey Sanchez XR CHEST 1 Von [...] by: TRACY HIGHTOWER Date: 2022-09-24 23:29 Normal [facility] COVID + FLU Quick Testingon 09-22-2022 SARS-CoV-2 (COVID-19) RNA MICHELLE+probe Ql (Unsp spec) Positive [facility] [employer] Other COVID + FLU Quick Testing Negative [employer] Other POINT OF CARE GLUCOSEon 03-2 Glucose [Mass/Vol] 146 mg/dL Critically high 74-106 [facility] Comment on above: Performed By: #### C XSTOOL #### [facility] [address] [place], [place] [address] Dr. Ramsye Sanchez US ARTERY UP EXT BILon 04-16 [...] ERWIN FALCON Date: 2022-04-16 17:21 Normal [facility] LACTOFERRIN FECAL QUANTon Lactoferrin, Fecal, Quant. 1.43 ug/mL(g) Normal 0.00-7.24 [facility] Comment on above: Result Comment: . [...] (IBS). Performed By: #### C XSTOOL #### [facility] [address] [place], [place] [address] Dr. Ramsey Sanchez CBC AUTO DIFFon 03-10-2022 BASO # 0.1 103/ul Normal 0.0-0.1 [facility] Comment on above: Performed By: #### C BC #### [facility] [address] [address] [address] Ramsey Sanchez Basophils/100 WBC (Bld) 0.9 % Normal 0.2-2.0 [facility] Comment on above: Performed By: #### C BC #### [facility] [address] [address] [address] Ramsey Sanchez EO # 0.3 103/ul Normal 0.0-0.7 [facility] Comment on above: Performed By: #### C BC #### [facility] [address] [place] [address] Dr. Ramsey Sanchez Eosinophils/100 WBC (Bld) 2.6 % Normal 0.9-7.0 [facility] Comment on above: Performed By: #### C BC #### [facility] [address] [place] [address] Dr. Ramsey Sanchez Erythrocyte distribution width (RBC) [Ratio] 13.2 % Normal 11.0-15.0 [facility] Comment on above: Performed By: #### C BC #### [facility] [address] [place] [address] Dr. Ramsey Sanchez Hematocrit (Bld) [Volume fraction] 46.1 % Normal 42.0-54.0 [facility] Comment on above: Performed By: #### C BC #### [facility] [address] [place] [address] Dr. Ramsey Sanchez Hemoglobin (Bld) [Mass/Vol] 14.5 g/dL Normal 14.0-18.0 [facility] Comment on above: Performed By: #### C BC #### [facility] [address] [place] [address] Dr. Ramsey Sanchez IG # 0.15 10e3/ul Critically high 0.00-0.03 [facility] Comment on above: Performed By: #### C BC #### [facility] [address] [place] [address] Dr. Ramsey Sanchez IG % 1.3 % Critically high 0.0-0.5 [facility] Comment on above: Performed By: #### C BC #### [facility] [address] [place] [address] Dr. Ramsey Sanchez LYMPH # 2.7 103/ul Normal 1.2-3.8 [facility] Comment on above: Performed By: #### C BC #### [facility] [address] [place] [address] Dr. Ramsey Sanchez Lymphocytes/100 WBC (Bld) 23.0 % Normal 20.5-60.0 [facility] Comment on above: Performed By: #### C BC #### [facility] [address] [place] [address] Dr. Ramsey Sanchez MANUAL DIFF REQ NO Normal [facility] Comment on above: Performed By: #### C BC #### [facility] [address] [place] [address] Dr. Ramsey Sanchez MCH (RBC) [Entitic mass] 31.0 pg Normal 25.9-34.0 [facility] Comment on above: Performed By: #### C BC #### [facility] [address] [place] [address] Dr. Ramsey Sanchez MCHC (RBC) [Mass/Vol] 31.5 g/dL Normal 29.9-35.2 [facility] Comment on above: Performed By: #### C BC #### [facility] [address] [place] [address] Dr. Ramsey Sanchez MCV (RBC) [Entitic vol] 98.5 fL Critically high 80.0-94.0 [facility] Comment on above: Performed By: #### C BC #### [facility] [address] [place] [address] Dr. Ramsey Sanchez MONO # 0.9 103/ul Critically high 0.3-0.8 [facility] Comment on above: Performed By: #### C BC #### [facility] [address] [place] [address] Dr. Ramsey Sanchez Monocytes/100 WBC (Bld) 7.4 % Normal 1.7-12.0 [facility] Comment on above: Performed By: #### C BC #### [facility] [address] [place] [address] Dr. Ramsey Sanchez NEUT # 7.6 103/ul Critically high 1.4-6.5 [facility] Comment on above: Performed By: #### C BC #### [facility] [address] [place] [address] Dr. Ramsey Sanchez Neutrophils/100 WBC (Bld) 64.8 % Normal 43.0-75.0 [facility] Comment on above: Performed By: #### C BC #### [facility] [address] [place] [address] Dr. Ramsey Sanchez Platelet mean volume (Bld) [Entitic vol] 11.5 fL Normal 9.5-13.5 [facility] Comment on above: Performed By: #### C BC #### [facility] [address] [place] [address] Dr. Ramsey Sanchez PLT 243 103/ul Normal 150-450 [facility] Comment on above: Performed By: #### C BC #### [facility] [address] [place] [address] Dr. Ramsey Sanchez RBC 4.68 106/ul Critically low 4.70-6.10 [facility] Comment on above: Performed By: #### C BC #### [facility] [address] [place], [place] [id number] Dr. Ramsey Sanchez WBC 11.7 103/ul Critically high 4.0-11.0 [facility] Comment on above: Performed By: #### C BC #### [facility] [address] [place] [address] Dr. Ramsey Sanchez GLYCOHEMOGLOBIN A1Con 2021 ADA RECOMMENDATION SEE BELOW Normal [facility] Comment on above: Result Comment: ADA RECOMMENDED LIMIT 4.0 - 6.0 ADA THERAPEUTIC TARGET < 7.0 ACTION SUGGESTED > 7.0 Performed By: #### A 1C #### [facility] [address] [place] [address] Dr. Ramsey Sanchez Glucose [Mass/Vol] 123 mg/dL Normal [facility] Comment on above: Performed By: #### A 1C #### [facility] [address] [address] [address] Ramsey Sanchez HbA1c (Bld) [Mass fraction] 5.9 % Normal 4.5-6.2 [facility] Comment on above: Performed By: #### A 1C #### [facility] [address] [address] [address] Ramsey Sanchez LIPID PROFILEon 03-10-2022 CHOL-HDL RATIO NORM SEE BELOW Normal [facility] Comment on above: Result Comment: 3.3 - 4.4 LOW RISK 4.4 - 7.1 AVERAGE RISK 7.1 - 11.0 MODERATE RISK >11.0 HIGH RISK Performed By: #### C BC #### [facility] [address] [place] [address] Dr. Ramsey Sanchez Cholesterol [Mass/Vol] 121 mg/dL Normal <=200 Th [facility] Comment on above: Performed By: #### C BC #### [facility] [address] [place] [address] Dr. Ramsey Sanchez Cholesterol in HDL [Mass/Vol] 30 mg/dL Critically low 40-60 [facility] Comment on above: Performed By: #### C BC #### [facility] [address] [place] [address] Dr. Ramsey Sanchez Cholesterol in LDL [Mass/Vol] 47.6 mg/dL Normal [facility] Comment on above: Performed By: #### C BC #### [facility] [address] [address] [address] Ramsey Sanchez Cholesterol.total/Chol esterol in HDL [Mass ratio] 4.0 {ratio} Normal [facility] Comment on above: Performed By: #### C BC #### [facility] [address] [place] [address] Dr. Ramsey Sanchez HDL NORMAL > or = 60 mg/dl - LO W CARDIOVASCULAR RISK <40 mg/dl - HIGH CARDIOVASCULAR RISK Normal [facility] Comment on above: Performed By: #### C BC #### [facility] [address] [place] [address] Dr. Ramsey Sanchez LDL CALC NORMAL SEE BELOW Normal [facility] Comment on above: Result Comment: <100 mg/dl OPTIMAL 100 - 129 mg/dl NEAR OR ABOVE OPTIMAL 130 - 159 mg/dl BORDERLINE HIGH 160 - 189 mg/dl HIGH >190 mg/dl VERY HIGH Performed By: #### C BC #### [facility] [address] [place] [address] Dr. Ramsey Sanchez Triglyceride [Mass/Vol] 217 mg/dL Critically high <=150 [facility] Comment on above: Performed By: #### C BC #### [facility] [address] [place] [address] Dr. Ramsey Sanchez VLDL CALC 43.4 mg/dL Normal [facility] Comment on above: Performed By: #### C BC #### [facility] [address] [place] [address] Dr. Ramsey Sanchez LIVER PROFILEon 03-10-2022 Albumin [Mass/Vol] 3.9 g/dL Normal 3.4-5.0 [facility] Comment on above: Performed By: #### C BC #### [facility] [address] [place] [address] Dr. Ramsey Sanchez Albumin/Globulin [Mass ratio] 1.1 {ratio} Normal [facility] Comment on above: Performed By: #### C BC #### [facility] [address] [place] [address] Dr. Ramsey Sanchez ALP [Catalytic activity/Vol] 75 U/L Normal 46-116 [facility] Comment on above: Performed By: #### C BC #### [facility] [address] [place] [address] Dr. Ramsey Sanchez ALT [Catalytic activity/Vol] 21 U/L Normal 16-63 [facility] Comment on above: Performed By: #### C BC #### [facility] [address] [place] [address] Dr. Ramsey Sanchez AST [Catalytic activity/Vol] 17 U/L Normal 15-37 [facility] Comment on above: Performed By: #### C BC #### [facility] [address] [address] [address] Ramsey Sanchez BILI, CONJUGATED 0.1 mg/dL Normal 0.0-0.2 [facility] Comment on above: Performed By: #### C BC #### [facility] [address] [address] [address] Ramsey Sanchez Bilirubin [Mass/Vol] 0.4 mg/dL Normal 0.2-1.0 [facility] Comment on above: Performed By: #### C BC #### [facility] [address] [address] [address] Ramsey Sanchez Globulin (S) [Mass/Vol] 3.5 g/dL Normal [facility] Comment on above: Performed By: #### C BC #### [facility] [address] [place] [address] Dr. Ramsey Sanchez Protein [Mass/Vol] 7.4 g/dL Normal 6.4-8.2 [facility] Comment on above: Performed By: #### C BC #### [facility] [address] [place] [address] Dr. Ramsey Sanchez MICROALBUMIN, RAND URon 02-15 mALB <1.3 Normal <=30.0 [facility] Comment on above: Performed By: #### M ALBR #### [facility] [address] [address] [address] Ramsey Sanchez PROF CHEM 8 (BAS METB)on Anion gap [Moles/Vol] 12.6 mmol/L Normal [facility] Comment on above: Performed By: #### C BC #### [facility] [address] [address] [address] Ramsey Sanchez Calcium [Mass/Vol] 8.9 mg/dL Normal 8.5-10.1 [facility] Comment on above: Performed By: #### C BC #### [facility] [address] [address] [address] Ramsey Sanchez Chloride [Moles/Vol] 103 mmol/L Normal 98-107 [facility] Comment on above: Performed By: #### C BC #### [facility] [address] [address] [address] Ramsey Sanchez CO2 [Moles/Vol] 28.5 mmol/L Normal 21.0-32.0 [facility] Comment on above: Performed By: #### C BC #### [facility] [address] [address] [address] Ramsey Sanchez Creatinine [Mass/Vol] 0.89 mg/dL Normal 0.70-1.30 [facility] Comment on above: Performed By: #### C BC #### [facility] [address] [place] [address] Dr. Ramsey Sanchez EGFR-AF KOSOVAN >60 Normal >=60 [facility] Comment on above: Performed By: #### C BC #### [facility] [address] [place] [address] Dr. Ramsey Sanchez EGFR-NON AF KOSOVAN >60 Normal >=60 [facility] Comment on above: Performed By: #### C BC #### [facility] [address] [place] [address] Dr. Ramsey Sanchez Glucose [Mass/Vol] 102 mg/dL Normal 74-106 [facility] Comment on above: Performed By: #### C BC #### [facility] [address] [place] [address] Dr. Ramsey Sanchez Potassium [Moles/Vol] 4.1 mmol/L Normal 3.5-5.1 [facility] Comment on above: Performed By: #### C BC #### [facility] [address] [place] [address] Dr. Ramsey Sanchez Sodium [Moles/Vol] 140 mmol/L Normal 136-145 [facility] Comment on above: Performed By: #### C BC #### [facility] [address] [place] [address] Dr. Ramsey Sanchez Urea nitrogen [Mass/Vol] 16.0 mg/dL Normal 7.0-18.0 [facility] Comment on above: Performed By: #### C BC #### [facility] [address] [place] [address] Dr. Ramsey Sanchez Urea nitrogen/Creatinine [Mass ratio] 18.0 mg/mg [facility] Comment on above: Performed By: #### C BC #### [facility] [address] [place] [address] Dr. Ramsey Sanchez STOOL CULTUREon 03-10-2022 Campylobacter Culture Final report Normal [facility] Comment on above: Performed By: #### C XSTOOL #### [facility] [address] [place] [address] Dr. Ramsey Sanchez E coli Shiga Toxin EIA Negative Normal Negative [facility] Comment on above: Performed By: #### C XSTOOL #### [facility] [address] [place] [address] Dr. Ramsey Sanchez Result 1 Comment Normal [facility] Comment on above: Result Comment: No S almonella or Shigella recovered. Performed By: #### C XSTOOL #### [facility] [address] [place] [address] Dr. Ramsey Sanchez Result Comment: No C ampylobacter species isolated. Salmonella/Shigella Screen Final report Normal [facility] Comment on above: Performed By: #### C XSTOOL #### [facility] [address] [place] [address] Dr. Ramsey Sanchez VITAMIN D 25 OHon 03-10-2022 VIT D 25-OH 40.2 ng/mL [facility] Comment on above: Performed By: #### V ITAD #### [facility] [address] [place] [address] Dr. Ramsey Sanchez VIT D RANGES SEE BELOW [facility] Comment on above: Result Comment: <20 ng/mL Vit D deficient 20 - <30 ng/mL Vit D insufficient 30 - 100 ng/mL Vit D sufficient >100 ng/mL Potential Toxicity Performed By: #### V ITAD #### [facility] [address] [place] [address] Dr. Ramsey Sanchez POC GLUCOSE LABon 08-31-2019 Glucose [Mass/Vol] 120 mg/dL High 70-100 [facility] Comment on above: Performed By: #### 8 [id number] #### [facility] [address] [place] [address], [place] Glucose [Mass/Vol] 114 mg/dL High 70-100 [facility] Comment on above: Performed By: #### 8 [id number] #### [facility] [address] [place] [address], [place] Glucose [Mass/Vol] 136 mg/dL High 70-100 [facility] Comment on above: Performed By: #### 8 [id number] #### [facility] [address] [place] [address], [facility] BASIC METABOLIC PANELon 08-15 Calcium [Mass/Vol] 9.3 mg/dL Normal 8.6-10.3 [facility] Comment on above: Performed By: #### 0 0071 #### [facility] [address] [place] [address], [place] Chloride [Moles/Vol] 103 mmol/L Normal 98-107 [facility] Comment on above: Performed By: #### 0 [id number] #### [facility] [address] [place] [address], [place] CO2 [Moles/Vol] 27 mmol/L Normal 21-31 [facility] Comment on above: Performed By: #### 0 0071 #### [facility] [address] [place] [address], [place] Creatinine [Mass/Vol] 1.04 mg/dL Normal 0.70-1.30 [facility] Comment on above: Performed By: #### 0 0071 #### [facility] [address] [place] [address], [place] GFR/1.73 sq M predicted among blacks MDRD (S/P/Bld) [Vol rate/Area] mL/min/{1.73_m2} Normal >60 [facility] Comment on above: Result Comment: Calc ulation may not be valid for patients over 70 years Performed By: #### 0 [id number] #### [facility] [address] [place] [address], [facility] GFR/1.73 sq M predicted among non-blacks MDRD (S/P/Bld) [Vol rate/Area] mL/min/{1.73_m2} Normal >60 [facility] Comment on above: Result Comment: Calc ulation may not be valid for patients over 70 years Performed By: #### 0 [id number] #### [facility] [address] [place] [address], [place] Glucose [Mass/Vol] 128 mg/dL High 70-100 [facility] Comment on above: Performed By: #### 0 0071 #### [facility] [address] [place] [address], [facility] Potassium [Moles/Vol] 4.2 mmol/L Normal 3.5-5.1 [facility] Comment on above: Performed By: #### 0 [id number] #### [facility] [address] [place] [address], [place] Sodium [Moles/Vol] 139 mmol/L Normal 136-145 [facility] Comment on above: Performed By: #### 0 [id number] #### [facility] [address] [place] [address], [place] Urea nitrogen [Mass/Vol] 20 mg/dL Normal 7-25 [facility] Comment on above: Performed By: #### 0 [id number] #### [facility] [address] [place] [address], [facility] CBC COMPLETE BLOOD COUNTon 0 - Erythrocyte distribution width (RBC) [Ratio] 13.9 % Normal 11.5-15.0 [facility] Comment on above: Performed By: #### 5 [id number] #### [facility] [address] Hematocrit (Bld) [Volume fraction] 44.9 % Normal 39.0-50.0 [facility] Comment on above: Performed By: #### 5 [id number] #### [facility] [address] [place] [address], [facility] Hemoglobin (Bld) [Mass/Vol] 14.5 g/dL Normal 13.0-17.0 [facility] Comment on above: Performed By: #### 5 0608 #### [facility] [address] [facility] [address] MCH (RBC) [Entitic mass] 30.7 pg Normal 27.0-33.0 [facility] Comment on above: Performed By: #### 5 [id number] #### [facility] [address] [facility] [address] MCHC (RBC) [Mass/Vol] 32.3 g/dL Normal 32.0-35.0 [facility] Comment on above: Performed By: #### 5 [id number] #### [facility] [address] [facility] [address] MCV (RBC) [Entitic vol] 95.1 fL Normal 82.0-98.0 [facility] Comment on above: Performed By: #### 5 [id number] #### [facility] [address] [facility]. [address] Nucleated RBC/100 WBC (Bld) [Ratio] 0 % Normal 0-0 [facility] Comment on above: Performed By: #### 5 0608 #### [facility] [address] [address], [facility] PLAT CNT 238 10*3/uL Normal 150-400 [facility] Comment on above: Performed By: #### 5 0608 #### [facility] [address] [place] [address], [facility] RBC (Bld) [#/Vol] 4.72 10*6/uL Normal 4.20-5.70 [facility] Comment on above: Performed By: #### 5 0608 #### [facility] [address] WBC (Bld) [#/Vol] 12.83 10*3/uL High 4.00-10.60 [facility] Comment on above: Performed By: #### 5 0608 #### [facility] [address] Cardiovascular Lab Reporton 08-30-2019 Cardiovascular Lab Report [facility] Patient Name: Jeremie Bennett [facility] MR #: [id number] Physician: Margaret Arellano, Department of M.D. Medicine Service Date: 08/30/2019 Division of Birthdate: 1940 Cardiology Room #: [id number] Adult [facility] [place] [address] Cardiovascular Laboratory Report FINAL IMPRESSIONS: 1. 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 2. 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 3. 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 4. 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 Arellano in the [place] office in the next 2 to 4 [...] left common femoral artery was obtained. A 6-Danish 11 cm sheath was inserted without difficulty. Limited femoral angiography was performed. Bilateral selective coronary angiography was performed using JL4 and JR4 catheters. After reviewing the images, it was elected to proceed with an interventional procedure. A 6-Danish XB 3.5 guide catheter was advanced over [...] conclude the procedure. Attempts to deploy a 6-Danish MynxGrip closure device were unsuccessful. Therefore, manual [...] Arellano M.D. Date Trans: 08/30/2019 05:00 P/emmanuelle [id number] cc: Demetrius Cooper MD [address] [facility] [address] Normal [facility] POC GLUCOSE LABon 08-30-2019 Glucose [Mass/Vol] 172 mg/dL High 70-100 [facility] Comment on above: Performed By: #### [id number] #### [facility] [address] [place] [address], [facility] Glucose [Mass/Vol] 138 mg/dL High 70-100 [facility] Comment on above: Performed By: #### [id number] #### [facility] [address] [place] [address], [facility] Vital Signs Date Time Vital Sign Value Performing Clinician Facility 01-18-2025 09:32-0400 Body height 165.1 cm Veena [employer] DO Work Phone: [facility] 01-18-2025 09:32-0400 Body mass index (BMI) [Ratio] 24.63 kg/m2 Veena Itzkowitz DO Work Phone: [facility] 01-18-2025 09:32-0400 Body weight 67.13 kg Veena Itzkowitz DO Work Phone: [facility] 12-26-2024 13:08-0400 Body weight 72.12 kg Demetrius Cooper MD Work Phone: [facility] 12-11-2024 13:30-0400 Body mass index (BMI) [Ratio] 26.65 kg/m2 Mary Schneider MD Work Phone: [facility] 12-11-2024 13:30-0400 Body weight 72.65 kg Mary Schneider MD Work Phone: [facility] 12-11-2024 13:30-0400 Diastolic blood pressure 69 mm[Hg] Mary Schneider MD Work Phone: [facility] 12-11-2024 13:30-0400 Systolic blood pressure 111 mm[Hg] Mary Schneider MD Work Phone: [facility] 11-23-2024 09:57-0400 Body temperature 98 [degF] Demetrius Cooper MD Work Phone: [facility] 11-23-2024 09:57-0400 Body weight 73.02 kg Demetrius Cooper MD Work Phone: [facility] 11-23-2024 09:57-0400 Diastolic blood pressure 64 mm[Hg] Demetrius Cooper MD Work Phone: [facility] 11-23-2024 09:57-0400 Heart rate 68 /min Demetrius Cooper MD Work Phone: [facility] 11-23-2024 09:57-0400 Respiratory rate 18 /min Demetrius Cooper MD Work Phone: [facility] 11-23-2024 09:57-0400 SaO2% (BldA) [Mass fraction] 98 % Demetrius Cooper MD Work Phone: [facility] 11-23-2024 09:57-0400 Systolic blood pressure 103 mm[Hg] Demetrius Cooper MD Work Phone: [facility] 10-11-2024 13:56-0400 Body height 165.1 cm Veena Itzkowitz DO Work Phone: [facility] 10-11-2024 13:56-0400 Body mass index (BMI) [Ratio] 24.63 kg/m2 Veena Itzkowitz DO Work Phone: [facility] 10-11-2024 13:56-0400 Body weight 67.13 kg Veena Itzkowitz DO Work Phone: [facility] 10-04-2024 14:58-0400 Body height 167.64 cm Demetrius Cooper MD Work Phone: [facility] 10-03-2024 12:00-0400 Diastolic blood pressure 63 mm[Hg] Demetrius Cooper MD Work Phone: [facility] 10-03-2024 12:00-0400 Heart rate 63 /min Demetrius Cooper MD Work Phone: [facility] 10-03-2024 12:00-0400 Respiratory rate 16 /min Demetrius Cooper MD Work Phone: [facility] 10-03-2024 12:00-0400 SaO2% (BldA) [Mass fraction] 95 % Demetrius Cooper MD Work Phone: [facility] 10-03-2024 12:00-0400 Systolic blood pressure 131 mm[Hg] Demetrius Cooper MD Work Phone: [facility] 10-03-2024 11:30-0400 Inhaled oxygen flow rate 4 L/min Demetrius Cooper MD Work Phone: [facility] 10-03-2024 10:15-0400 Body height 165.1 cm Demetrius Cooper MD Work Phone: [facility] 10-03-2024 10:15-0400 Body temperature 97.3 [degF] Demetrius Cooper MD Work Phone: [facility] 10-03-2024 10:15-0400 Body weight 67.13 kg Demetrius Cooper MD Work Phone: [facility] 09-28-2024 13:47-0400 Body height 165.1 cm Missy Lowe PA Work Phone: [facility] 09-28-2024 13:47-0400 Body mass index (BMI) [Ratio] 24.63 kg/m2 Missy Lowe PA Work Phone: [facility] 09-28-2024 13:47-0400 Body weight 67.13 kg Missy Lowe PA Work Phone: [facility] 09-28-2024 13:47-0400 Diastolic blood pressure 68 mm[Hg] Missy Lowe PA Work Phone: [facility] 09-28-2024 13:47-0400 Systolic blood pressure 110 mm[Hg] Missy Lowe PA Work Phone: [facility] 09-27-2024 13:20-0400 Body height 165.1 cm Veena Ross DO Work Phone: [facility] 09-27-2024 13:20-0400 Body mass index (BMI) [Ratio] 24.96 kg/m2 Veena Itzkowitz DO Work Phone: [facility] 09-27-2024 13:20-0400 Body weight 68.04 kg Veena Itzkowitz DO Work Phone: [facility] 09-27-2024 13:20-0400 Diastolic blood pressure 62 mm[Hg] Veena Itzkowitz DO Work Phone: [facility] 09-27-2024 13:20-0400 Systolic blood pressure 94 mm[Hg] Veena Itzkowitz DO Work Phone: [facility] 09-26-2024 14:55-0400 Body height 165.1 cm Demetrius Cooper MD Work Phone: [facility] 09-26-2024 14:55-0400 Body mass index (BMI) [Ratio] 24.6 kg/m2 Demetrius Cooper MD Work Phone: [facility] 09-26-2024 14:55-0400 Body temperature 97.8 [degF] Demetrius Cooper MD Work Phone: [facility] 09-26-2024 14:55-0400 Body weight 67.13 kg Demetrius Cooper MD Work Phone: [facility] 09-26-2024 14:55-0400 Diastolic blood pressure 51 mm[Hg] Demetrius Cooper MD Work Phone: [facility] 09-26-2024 14:55-0400 Heart rate 66 /min Demetrius Cooper MD Work Phone: [facility] 09-26-2024 14:55-0400 Systolic blood pressure 85 mm[Hg] Demetrius Cooper MD Work Phone: [facility] 09-20-2024 21:13-0400 Body temperature 97.6 [degF] Demetrius Cooper MD Work Phone: [facility] 09-20-2024 21:13-0400 Diastolic blood pressure 62 mm[Hg] Demetrius Cooper MD Work Phone: [facility] 09-20-2024 21:13-0400 Heart rate 68 /min Demetrius Cooper MD Work Phone: [facility] 09-20-2024 21:13-0400 Respiratory rate 18 /min Demetrius Cooper MD Work Phone: [facility] 09-20-2024 21:13-0400 SaO2% (BldA) [Mass fraction] 96 % Demetrius Cooper MD Work Phone: [facility] 09-20-2024 21:13-0400 Systolic blood pressure 113 mm[Hg] Demetrius Cooper MD Work Phone: [facility] 09-20-2024 15:13-0400 Body height 165.1 cm Demetrius Cooper MD Work Phone: [facility] 09-20-2024 15:13-0400 Body weight 65 kg Demetrius Cooper MD Work Phone: [facility] 09-11-2024 13:07-0400 Body height 165.1 cm Mary Schneider MD Work Phone: [facility] 09-11-2024 13:07-0400 Body mass index (BMI) [Ratio] 24.84 kg/m2 Mary Schneider MD Work Phone: [facility] 09-11-2024 13:07-0400 Body temperature 96.8 [degF] Mary Schneider MD Work Phone: [facility] 09-11-2024 13:07-0400 Body weight 67.72 kg Mary Schneider MD Work Phone: [facility] 09-11-2024 10:14-0400 Body height 162.56 cm Demetrius Cooper MD Work Phone: [facility] 09-11-2024 10:14-0400 Body mass index (BMI) [Ratio] 25.7 kg/m2 Demetrius Cooper MD Work Phone: [facility] 09-11-2024 10:14-0400 Body weight 68.03 kg Demetrius Cooper MD Work Phone: [facility] 09-11-2024 10:14-0400 Diastolic blood pressure 74 mm[Hg] Demetrius Cooper MD Work Phone: [facility] 09-11-2024 10:14-0400 Heart rate 76 /min Demetrius Cooper MD Work Phone: [facility] 09-11-2024 10:14-0400 SaO2% (BldA) [Mass fraction] 98 % Demetrius Cooper MD Work Phone: [facility] 09-11-2024 10:14-0400 Systolic blood pressure 113 mm[Hg] Demetrius Cooper MD Work Phone: [facility] 08-23-2024 09:49-0400 Body temperature 97.5 [degF] Demetrius Cooper MD Work Phone: [facility] 08-23-2024 09:49-0400 Body weight 72.12 kg Demetrius Cooper MD Work Phone: [facility] 08-23-2024 09:49-0400 Diastolic blood pressure 94 mm[Hg] Demetrius Cooper MD Work Phone: [facility] 08-23-2024 09:49-0400 Heart rate 94 /min Demetrius Cooper MD Work Phone: [facility] 08-23-2024 09:49-0400 Respiratory rate 20 /min Demetrius Cooper MD Work Phone: [facility] 08-23-2024 09:49-0400 SaO2% (BldA) [Mass fraction] 98 % Demetrius Cooper MD Work Phone: [facility] 08-23-2024 09:49-0400 Systolic blood pressure 114 mm[Hg] Demetrius Cooper MD Work Phone: [facility] 08-21-2024 12:53-0400 Body height 167.64 cm Demetrius Cooper MD Work Phone: [facility] 08-21-2024 11:36-0400 Body temperature 98 [degF] Demetrius Cooper MD Work Phone: [facility] 08-21-2024 11:36-0400 Diastolic blood pressure 57 mm[Hg] Demetrius Cooper MD Work Phone: [facility] 08-21-2024 11:36-0400 Heart rate 76 /min Demetrius Cooper MD Work Phone: [facility] 08-21-2024 11:36-0400 Respiratory rate 18 /min Demetrius Cooper MD Work Phone: [facility] 08-21-2024 11:36-0400 SaO2% (BldA) [Mass fraction] 96 % Demetrius Cooper MD Work Phone: [facility] 08-21-2024 11:36-0400 Systolic blood pressure 122 mm[Hg] Demetrius Cooper MD Work Phone: [facility] 08-21-2024 04:13-0400 Body weight 70.9 kg Demetrius Cooper MD Work Phone: [facility] 08-20-2024 19:00-0400 Diastolic blood pressure 54 mm[Hg] Demetrius Cooper MD Work Phone: [facility] 08-20-2024 19:00-0400 Heart rate 61 /min Demetrius Cooper MD Work Phone: [facility] 08-20-2024 19:00-0400 Respiratory rate 18 /min Demetrius Cooper MD Work Phone: [facility] 08-20-2024 19:00-0400 SaO2% (BldA) [Mass fraction] 92 % Demetrius Cooper MD Work Phone: [facility] 08-20-2024 19:00-0400 Systolic blood pressure 104 mm[Hg] Demetrius Cooepr MD Work Phone: [facility] 08-20-2024 18:04-0400 Body temperature 98.1 [degF] Demetrius Cooper MD Work Phone: [facility] 08-20-2024 16:57-0400 Body height 162.56 cm Demetrius Cooper MD Work Phone: [facility] 08-20-2024 16:57-0400 Body weight 71.6 kg Demetrius Cooper MD Work Phone: [facility] 08-17-2024 08:23-0400 Body height 167.64 cm Demetrius Cooper MD Work Phone: [facility] 08-17-2024 08:23-0400 Body temperature 97.3 [degF] Demetrius Cooper MD Work Phone: [facility] 08-17-2024 08:23-0400 Body weight 72.25 kg Demetrius Cooper MD Work Phone: [facility] 08-17-2024 08:23-0400 Diastolic blood pressure 71 mm[Hg] Demetrius Cooper MD Work Phone: [facility] 08-17-2024 08:23-0400 Heart rate 90 /min Demetrius Cooper MD Work Phone: [facility] 08-17-2024 08:23-0400 Respiratory rate 18 /min Demetrius Cooper MD Work Phone: [facility] 08-17-2024 08:23-0400 SaO2% (BldA) [Mass fraction] 95 % Demetrius Cooper MD Work Phone: [facility] 08-17-2024 08:23-0400 Systolic blood pressure 151 mm[Hg] Demetrius Cooper MD Work Phone: [facility] 08-16-2024 09:18-0400 Body weight 72.4 kg Demetrius Cooper MD Work Phone: [facility] 08-10-2024 15:40-0400 Body height 167.64 cm Demetrius Cooper MD Work Phone: [facility] 08-10-2024 08:25-0400 Body temperature 97.8 [degF] Demetrius Cooper MD Work Phone: [facility] 08-10-2024 08:25-0400 Diastolic blood pressure 65 mm[Hg] Demetrius Cooper MD Work Phone: [facility] 08-10-2024 08:25-0400 Heart rate 68 /min Demetrius Cooper MD Work Phone: [facility] 08-10-2024 08:25-0400 Respiratory rate 18 /min Demetrius Cooper MD Work Phone: [facility] 08-10-2024 08:25-0400 SaO2% (BldA) [Mass fraction] 94 % Demetrius Cooper MD Work Phone: [facility] 08-10-2024 08:25-0400 Systolic blood pressure 121 mm[Hg] Demetrius Cooper MD Work Phone: [facility] 08-09-2024 09:28-0400 Body weight 73.1 kg Demetrius Cooper MD Work Phone: [facility] 08-09-2024 09:16-0400 Body weight 73.1 kg Demetrius Cooper MD Work Phone: [facility] 08-09-2024 09:16-0400 Diastolic blood pressure 69 mm[Hg] Demetrius Cooper MD Work Phone: [facility] 08-09-2024 09:16-0400 Heart rate 77 /min Demetrius Cooper MD Work Phone: [facility] 08-09-2024 09:16-0400 Respiratory rate 18 /min Demetrius Cooper MD Work Phone: [facility] 08-09-2024 09:16-0400 SaO2% (BldA) [Mass fraction] 97 % Demetrius Cooper MD Work Phone: [facility] 08-09-2024 09:16-0400 Systolic blood pressure 110 mm[Hg] Demetrius Cooper MD Work Phone: [facility] 08-03-2024 09:58-0400 Body height 167.64 cm Demetrius Cooper MD Work Phone: [facility] 08-03-2024 08:27-0400 Body temperature 97.9 [degF] Demetrius Cooper MD Work Phone: [facility] 08-03-2024 08:27-0400 Diastolic blood pressure 74 mm[Hg] Demetrius Cooper MD Work Phone: [facility] 08-03-2024 08:27-0400 Heart rate 85 /min Demetrius Cooper MD Work Phone: [facility] 08-03-2024 08:27-0400 Respiratory rate 18 /min Demetrius Cooper MD Work Phone: [facility] 08-03-2024 08:27-0400 SaO2% (BldA) [Mass fraction] 95 % Demetrius Cooper MD Work Phone: [facility] 08-03-2024 08:27-0400 Systolic blood pressure 133 mm[Hg] Demetrius Cooper MD Work Phone: [facility] 07-28-2024 16:29-0400 Body height 167.64 cm Demetrius Cooper MD Work Phone: [facility] 07-27-2024 08:28-0400 Body temperature 98.1 [degF] Demetrius Cooper MD Work Phone: [facility] 07-27-2024 08:28-0400 Body weight 74.2 kg Demetrius Cooper MD Work Phone: [facility] 07-27-2024 08:28-0400 Diastolic blood pressure 79 mm[Hg] Demetrius Cooper MD Work Phone: [facility] 07-27-2024 08:28-0400 Heart rate 62 /min Demetrius Cooper MD Work Phone: [facility] 07-27-2024 08:28-0400 Respiratory rate 18 /min Demetrius Cooper MD Work Phone: [facility] 07-27-2024 08:28-0400 SaO2% (BldA) [Mass fraction] 95 % Demetrius Cooper MD Work Phone: [facility] 07-27-2024 08:28-0400 Systolic blood pressure 126 mm[Hg] Demetrius Cooper MD Work Phone: [facility] 07-26-2024 08:23-0400 Body temperature 97.6 [degF] Demetrius Cooper MD Work Phone: [facility] 07-26-2024 08:23-0400 Body weight 73.48 kg Demetrius Cooper MD Work Phone: [facility] 07-26-2024 08:23-0400 Diastolic blood pressure 72 mm[Hg] Demetrius Cooper MD Work Phone: [facility] 07-26-2024 08:23-0400 Heart rate 64 /min Demetrius Cooper MD Work Phone: [facility] 07-26-2024 08:23-0400 Respiratory rate 20 /min Demetrius Cooper MD Work Phone: [facility] 07-26-2024 08:23-0400 SaO2% (BldA) [Mass fraction] 96 % Demetrius Cooper MD Work Phone: [facility] 07-26-2024 08:23-0400 Systolic blood pressure 120 mm[Hg] Demetrius Cooper MD Work Phone: [facility] 07-20-2024 10:18-0500 Body weight 75.38 kg Demetrius Cooper MD Work Phone: [facility] 07-20-2024 08:46-0500 Body temperature 97.8 [degF] Demetrius Cooper MD Work Phone: [facility] 07-20-2024 08:46-0500 Body weight 74.84 kg Demetrius Cooper MD Work Phone: [facility] 07-20-2024 08:46-0500 Diastolic blood pressure 70 mm[Hg] Demetrius Cooper MD Work Phone: [facility] 07-20-2024 08:46-0500 Heart rate 68 /min Demetrius Cooper MD Work Phone: [facility] 07-20-2024 08:46-0500 Respiratory rate 20 /min Demetrius Cooper MD Work Phone: [facility] 07-20-2024 08:46-0500 SaO2% (BldA) [Mass fraction] 97 % Demetrius Cooper MD Work Phone: [facility] 07-20-2024 08:46-0500 Systolic blood pressure 137 mm[Hg] Demetrius Cooper MD Work Phone: [facility] 07-18-2024 08:50-0500 Body height 167.64 cm Demetrius Cooper MD Work Phone: [facility] 07-17-2024 14:33-0500 Diastolic blood pressure 73 mm[Hg] Demetrius Cooper MD Work Phone: [facility] 07-17-2024 14:33-0500 Heart rate 59 /min Demetrius Cooper MD Work Phone: [facility] 07-17-2024 14:33-0500 Respiratory rate 16 /min Demetrius Cooper MD Work Phone: [facility] 07-17-2024 14:33-0500 SaO2% (BldA) [Mass fraction] 96 % Demetrius Cooper MD Work Phone: [facility] 07-17-2024 14:33-0500 Systolic blood pressure 158 mm[Hg] Demetrius Cooper MD Work Phone: [facility] 07-17-2024 13:48-0500 Body temperature 97.3 [degF] Demetrius Cooper MD Work Phone: [facility] 07-17-2024 10:40-0500 Body height 165.1 cm Demetrius Cooper MD Work Phone: [facility] 07-17-2024 10:40-0500 Body weight 77.11 kg Demetrius Cooper MD Work Phone: [facility] 07-13-2024 16:08-0500 Body height 167.64 cm Demetrius Cooper MD Work Phone: [facility] 07-13-2024 08:37-0500 Body temperature 97.8 [degF] Demetrius Cooper MD Work Phone: [facility] 07-13-2024 08:37-0500 Body weight 77.01 kg Demetrius Cooper MD Work Phone: [facility] 07-13-2024 08:37-0500 Diastolic blood pressure 71 mm[Hg] Demetrius Cooper MD Work Phone: [facility] 07-13-2024 08:37-0500 Heart rate 64 /min Demetrius Cooper MD Work Phone: [facility] 07-13-2024 08:37-0500 Respiratory rate 18 /min Demetrius Cooper MD Work Phone: [facility] 07-13-2024 08:37-0500 SaO2% (BldA) [Mass fraction] 95 % Demetrius Cooper MD Work Phone: [facility] 07-13-2024 08:37-0500 Systolic blood pressure 127 mm[Hg] Demetrius Cooper MD Work Phone: [facility] 07-12-2024 08:41-0500 Body temperature 97.3 [degF] Demetrius Cooper MD Work Phone: [facility] 07-12-2024 08:41-0500 Body weight 76.65 kg Demetrius Cooper MD Work Phone: [facility] 07-12-2024 08:41-0500 Diastolic blood pressure 60 mm[Hg] Demetrius Cooper MD Work Phone: [facility] 07-12-2024 08:41-0500 Heart rate 61 /min Demetrius Cooper MD Work Phone: [facility] 07-12-2024 08:41-0500 Respiratory rate 20 /min Demetrius Cooper MD Work Phone: [facility] 07-12-2024 08:41-0500 SaO2% (BldA) [Mass fraction] 96 % Demetrius Cooper MD Work Phone: [facility] 07-12-2024 08:41-0500 Systolic blood pressure 106 mm[Hg] Demetrius Cooper MD Work Phone: [facility] 07-06-2024 11:06-0500 Body height 167.64 cm Demetrius Cooper MD Work Phone: [facility] 07-06-2024 08:36-0500 Body temperature 97.6 [degF] Demetrius Cooper MD Work Phone: [facility] 07-06-2024 08:36-0500 Body weight 77.83 kg Demetrius Cooper MD Work Phone: [facility] 07-06-2024 08:36-0500 Diastolic blood pressure 71 mm[Hg] Demetrius Cooper MD Work Phone: [facility] 07-06-2024 08:36-0500 Heart rate 63 /min Demetrius Cooper MD Work Phone: [facility] 07-06-2024 08:36-0500 Respiratory rate 18 /min Demetrius Cooper MD Work Phone: [facility] 07-06-2024 08:36-0500 SaO2% (BldA) [Mass fraction] 95 % Demetrius Cooper MD Work Phone: [facility] 07-06-2024 08:36-0500 Systolic blood pressure 122 mm[Hg] Demetrius Cooper MD Work Phone: [facility] 06-22-2024 14:58-0500 Body height 162.56 cm Demetrius Cooper MD Work Phone: [facility] 06-22-2024 14:58-0500 Body temperature 97.5 [degF] Demetrius Cooper MD Work Phone: [facility] 06-22-2024 14:58-0500 Body weight 78 kg Demetrius Cooper MD Work Phone: [facility] 06-22-2024 14:58-0500 Diastolic blood pressure 72 mm[Hg] Demetrius Cooper MD Work Phone: [facility] 06-22-2024 14:58-0500 Heart rate 50 /min Demetrius Cooper MD Work Phone: [facility] 06-22-2024 14:58-0500 Respiratory rate 20 /min Demetrius Cooper MD Work Phone: [facility] 06-22-2024 14:58-0500 SaO2% (BldA) [Mass fraction] 95 % Demetrius Cooper MD Work Phone: [facility] 06-22-2024 14:58-0500 Systolic blood pressure 149 mm[Hg] Demetrius Cooper MD Work Phone: [facility] 06-20-2024 14:38-0500 Body height 160 cm Matteo Bell MD Work Phone: [facility] 06-20-2024 14:38-0500 Body mass index (BMI) [Ratio] 30.11 kg/m2 Matteo Bell MD Work Phone: [facility] 06-20-2024 14:38-0500 Body weight 77.11 kg Matteo Bell MD Work Phone: [facility] 06-20-2024 14:38-0500 Diastolic blood pressure 74 mm[Hg] Matteo Bell MD Work Phone: [facility] 06-20-2024 14:38-0500 Systolic blood pressure 120 mm[Hg] Matteo Bell MD Work Phone: [facility] 06-14-2024 10:45-0500 Body height 167.64 cm Demetrius Cooper MD Work Phone: [facility] 06-14-2024 10:45-0500 Body mass index (BMI) [Ratio] 27.6 kg/m2 Demetrius Cooper MD Work Phone: [facility] 06-14-2024 10:45-0500 Body temperature 97.6 [degF] Demetrius Cooper MD Work Phone: [facility] 06-14-2024 10:45-0500 Body weight 77.56 kg Demetrius Cooper MD Work Phone: [facility] 06-14-2024 10:45-0500 Diastolic blood pressure 67 mm[Hg] Demetrius Cooper MD Work Phone: [facility] 06-14-2024 10:45-0500 Heart rate 69 /min Demetrius Cooper MD Work Phone: [facility] 06-14-2024 10:45-0500 Respiratory rate 20 /min Demetrius Cooper MD Work Phone: [facility] 06-14-2024 10:45-0500 Systolic blood pressure 103 mm[Hg] Demetrius Cooper MD Work Phone: [facility] 06-14-2024 09:53-0500 Body height 167.64 cm Demetrius Cooper MD Work Phone: [facility] 06-14-2024 09:53-0500 Body mass index (BMI) [Ratio] 27.6 kg/m2 Demetrius Cooper MD Work Phone: [facility] 06-14-2024 09:53-0500 Body temperature 97.6 [degF] Demetrius Cooper MD Work Phone: [facility] 06-14-2024 09:53-0500 Body weight 77.56 kg Demetrius Cooper MD Work Phone: [facility] 06-14-2024 09:53-0500 Diastolic blood pressure 67 mm[Hg] Demetrius Cooper MD Work Phone: [facility] 06-14-2024 09:53-0500 Heart rate 69 /min Demetrius Cooper MD Work Phone: [facility] 06-14-2024 09:53-0500 Respiratory rate 20 /min Demetrius Cooper MD Work Phone: [facility] 06-14-2024 09:53-0500 SaO2% (BldA) [Mass fraction] 96 % Demetrius Cooper MD Work Phone: [facility] 06-14-2024 09:53-0500 Systolic blood pressure 103 mm[Hg] Demetrius Cooper MD Work Phone: [facility] 06-05-2024 14:13-0500 Diastolic blood pressure 96 mm[Hg] [address] 06-05-2024 14:13-0500 Heart rate 65 /min [address] 06-05-2024 14:13-0500 Respiratory rate 16 /min [address] 06-05-2024 14:13-0500 SaO2% (BldA) [Mass fraction] 96 % [address] 06-05-2024 14:13-0500 Systolic blood pressure 147 mm[Hg] [address] 06-05-2024 12:22-0500 Body temperature 97.2 [degF] [address] 05-30-2024 11:16-0500 Body height 162.6 cm Mary Schneider MD Work Phone: [facility] 05-30-2024 11:16-0500 Body mass index (BMI) [Ratio] 28.89 kg/m2 Mary Schneider MD Work Phone: [facility] 05-30-2024 11:16-0500 Body temperature 98.2 [degF] Mary Schneider MD Work Phone: [facility] 05-30-2024 11:16-0500 Body weight 76.34 kg Mary Schneider MD Work Phone: [facility] 05-11-2024 10:00-0500 Body temperature 97.7 [degF] Mary Schneider MD Work Phone: [facility] 05-11-2024 10:00-0500 Diastolic blood pressure 72 mm[Hg] Mary Schneider MD Work Phone: [facility] 05-11-2024 10:00-0500 Heart rate 61 /min Mary Schneider MD Work Phone: [facility] 05-11-2024 10:00-0500 Respiratory rate 14 /min Mary Schneider MD Work Phone: [facility] 05-11-2024 10:00-0500 SaO2% (BldA) [Mass fraction] 95 % Mary Schneider MD Work Phone: [facility] 05-11-2024 10:00-0500 Systolic blood pressure 140 mm[Hg] Mary Schneider MD Work Phone: [facility] 05-11-2024 06:08-0500 Body height 162.6 cm Mary Schneider MD Work Phone: [facility] 05-11-2024 06:08-0500 Body mass index (BMI) [Ratio] 29.52 kg/m2 Mary Schneider MD Work Phone: [facility] 05-11-2024 06:08-0500 Body weight 78 kg Mary Schneider MD Work Phone: [facility] 04-07-2024 10:40-0500 Body height 162.6 cm Mary Schneider MD Work Phone: [facility] 04-07-2024 10:40-0500 Body mass index (BMI) [Ratio] 29.18 kg/m2 Mary Schneider MD Work Phone: [facility] 04-07-2024 10:40-0500 Body weight 77.11 kg Mary Schneider MD Work Phone: [facility] 03-29-2024 10:06-0500 Body height 162.6 cm Luc Ham MD Work Phone: [facility] 03-29-2024 10:06-0500 Body mass index (BMI) [Ratio] 29.7 kg/m2 Luc Ham MD Work Phone: [facility] 03-29-2024 10:06-0500 Body weight 78.47 kg Luc Ham MD Work Phone: [facility] 03-29-2024 10:06-0500 Diastolic blood pressure 70 mm[Hg] Luc Ham MD Work Phone: [facility] 03-29-2024 10:06-0500 Systolic blood pressure 138 mm[Hg] Luc Ham MD Work Phone: [facility] 03-23-2024 14:06-0500 Blood Pressure Location Wiley Sarmini [facility] 03-23-2024 14:06-0500 Diastolic blood pressure 74 mm[Hg] Wiley Sarmini [facility] 03-23-2024 14:06-0500 Heart rate 71 /min Wiley Sarmini [facility] 03-23-2024 14:06-0500 Respiratory rate 16 /min Wiley Sarmini [facility] 03-23-2024 14:06-0500 Systolic blood pressure 117 mm[Hg] Wiley Sarmini [facility] 03-08-2024 09:25-0400 Body height 162.6 cm Luc Ham MD Work Phone: [facility] 03-08-2024 09:25-0400 Body mass index (BMI) [Ratio] 29.87 kg/m2 Luc Ham MD Work Phone: [facility] 03-08-2024 09:25-0400 Body weight 78.93 kg Luc Ham MD Work Phone: [facility] 03-08-2024 09:25-0400 Diastolic blood pressure 66 mm[Hg] Luc Ham MD Work Phone: [facility] 03-08-2024 09:25-0400 Systolic blood pressure 124 mm[Hg] Luc Ham MD Work Phone: [facility] 02-16-2024 14:19-0400 Body height 162.6 cm Luc Ham MD Work Phone: [facility] 02-16-2024 14:19-0400 Body mass index (BMI) [Ratio] 29.87 kg/m2 Luc Ham MD Work Phone: [facility] 02-16-2024 14:19-0400 Body weight 78.93 kg Luc Ham MD Work Phone: [facility] 02-16-2024 14:19-0400 Diastolic blood pressure 74 mm[Hg] Luc Ham MD Work Phone: [facility] 02-16-2024 14:19-0400 Systolic blood pressure 129 mm[Hg] Luc Ham MD Work Phone: [facility] 02-16-2024 08:59-0400 Body height 162.6 cm Missy Lowe PA Work Phone: [facility] 02-16-2024 08:59-0400 Body mass index (BMI) [Ratio] 29.7 kg/m2 Missy Lowe PA Work Phone: [facility] 02-16-2024 08:59-0400 Body weight 78.47 kg Missy Lowe PA Work Phone: [facility] 02-16-2024 08:59-0400 Diastolic blood pressure 78 mm[Hg] Missy Lowe PA Work Phone: [facility] 02-16-2024 08:59-0400 Systolic blood pressure 118 mm[Hg] Missy Lowe PA Work Phone: [facility] 02-01-2024 13:07-0400 Body height 162.6 cm Luc Ham MD Work Phone: [facility] 02-01-2024 13:07-0400 Body mass index (BMI) [Ratio] 29.52 kg/m2 Luc Ham MD Work Phone: [facility] 02-01-2024 13:07-0400 Body weight 78.02 kg Luc Ham MD Work Phone: [facility] 02-01-2024 13:07-0400 Diastolic blood pressure 71 mm[Hg] Luc Ham MD Work Phone: [facility] 02-01-2024 13:07-0400 Systolic blood pressure 101 mm[Hg] Luc Ham MD Work Phone: [facility] 10-21-2023 14:32-0400 Blood Pressure Location Wiley Sarmini [facility] 10-21-2023 14:32-0400 Diastolic blood pressure 64 mm[Hg] Wiley Sarmini [facility] 10-21-2023 14:32-0400 Heart rate 73 /min Wiley Sarmini [facility] 10-21-2023 14:32-0400 Respiratory rate 18 /min Wiley Sarmini [facility] 10-21-2023 14:32-0400 Systolic blood pressure 130 mm[Hg] Wiley Sarmini [facility] 09-17-2023 08:58-0400 Blood Pressure Location Anjali Ruby [facility] 09-17-2023 08:58-0400 Body temperature 97.34 [degF] Anjali Ruby [facility] 09-17-2023 08:58-0400 Diastolic blood pressure 66 mm[Hg] Anjali Ruby [facility] 09-17-2023 08:58-0400 Heart rate 66 /min Anjali Ruby [facility] 09-17-2023 08:58-0400 Systolic blood pressure 123 mm[Hg] Anjali Ruby [facility] 09-02-2023 13:28-0400 Body height 167.64 cm [facility] 09-02-2023 13:28-0400 Body mass index (BMI) [Ratio] 28 kg/m2 [facility] 09-02-2023 13:28-0400 Body weight 78.69 kg [facility] 09-02-2023 13:28-0400 Diastolic blood pressure 61 mm[Hg] [facility] 09-02-2023 13:28-0400 Heart rate 67 /min [facility] 09-02-2023 13:28-0400 SaO2% (BldA) [Mass fraction] 95 % [facility] 09-02-2023 13:28-0400 Systolic blood pressure 113 mm[Hg] [facility] 07-27-2023 10:23-0400 Body height 167.64 cm [facility] 07-27-2023 10:23-0400 Body mass index (BMI) [Ratio] 27.5 kg/m2 [facility] 07-27-2023 10:23-0400 Body temperature 97.9 [degF] [facility] 07-27-2023 10:23-0400 Body weight 77.28 kg [facility] 07-27-2023 10:23-0400 Diastolic blood pressure 66 mm[Hg] [facility] 07-27-2023 10:23-0400 Heart rate 86 /min [facility] 07-27-2023 10:23-0400 Respiratory rate 18 /min [facility] 07-27-2023 10:23-0400 SaO2% (BldA) [Mass fraction] 97 % [facility] 07-27-2023 10:23-0400 Systolic blood pressure 121 mm[Hg] [facility] 05-31-2023 13:30-0500 Body height 167.64 cm Gisele Brunson Other [facility] [employer] Other 05-31-2023 13:30-0500 Body mass index (BMI) [Ratio] 27.6 kg/m2 Gisele Brunson Other [employer] Other 05-31-2023 13:30-0500 Body weight 77.57 kg Gisele Brunson Other [employer] Other 05-31-2023 13:30-0500 Diastolic blood pressure 55 mm[Hg] Gisele Brunson Other [employer] Other 05-31-2023 13:30-0500 SaO2% (BldA) [Mass fraction] 94 % Gisele Brunson Other [employer] Other 05-31-2023 13:30-0500 Systolic blood pressure 104 mm[Hg] Gisele Brunson Other [employer] Other 05-25-2023 12:21-0500 Blood Pressure Location Anjali Ruby [facility] 05-25-2023 12:21-0500 Diastolic blood pressure 65 mm[Hg] Anjali Ruby [facility] 05-25-2023 12:21-0500 Heart rate 88 /min Anjali Flori [facility] 05-25-2023 12:21-0500 Respiratory rate 16 /min Anjali Flori [facility] 05-25-2023 12:21-0500 Systolic blood pressure 113 mm[Hg] Anjali Flori [facility] 04-01-2023 13:15-0500 Body temperature 97.11 [degF] Vaishali Pringle MD Work Phone: [facility] 04-01-2023 13:15-0500 Body weight 75.75 kg Vaishali Pringle MD Work Phone: [facility] 04-01-2023 13:15-0500 Diastolic blood pressure 66 mm[Hg] Vaishali Pringle MD Work Phone: [facility] 04-01-2023 13:15-0500 Heart rate 70 /min Vaishali Pringle MD Work Phone: [facility] 04-01-2023 13:15-0500 SaO2% (BldA) [Mass fraction] 97 % Vaishali Pringle MD Work Phone: [facility] 04-01-2023 13:15-0500 Systolic blood pressure 109 mm[Hg] Vaishali Pringle MD Work Phone: [facility] 03-10-2023 08:53-0400 Blood Pressure Location Anjali Flori [facility] 03-10-2023 08:53-0400 Body temperature 97.16 [degF] Anjali Ruby [facility] 03-10-2023 08:53-0400 Diastolic blood pressure 72 mm[Hg] Anjali Ruby [facility] 03-10-2023 08:53-0400 Heart rate 63 /min Anjali Staffordmetz [facility] 03-10-2023 08:53-0400 Systolic blood pressure 117 mm[Hg] Anjali Staffordmetz [facility] 02-25-2023 13:27-0400 Blood Pressure Location Anjalijane StaffordFlori [facility] 02-25-2023 13:27-0400 Body temperature 98.06 [degF] Anjali Staffordmetz [facility] 02-25-2023 13:27-0400 Diastolic blood pressure 75 mm[Hg] Anjali Staffordmetz [facility] 02-25-2023 13:27-0400 Heart rate 85 /min Anjali Ruby [facility] 02-25-2023 13:27-0400 Respiratory rate 16 /min Anjali Staffordmetz [facility] 02-25-2023 13:27-0400 Systolic blood pressure 122 mm[Hg] Anjali Staffordmetz [facility] 01-29-2023 10:15-0400 Body height 167.64 cm Gisele Brunson Other [employer] Other 01-29-2023 10:15-0400 Body mass index (BMI) [Ratio] 28.24 kg/m2 Gisele Brunson Other [employer] Other 01-29-2023 10:15-0400 Body weight 79.38 kg Gisele Brunson Other [employer] Other 01-29-2023 10:15-0400 Diastolic blood pressure 75 mm[Hg] Gisele Brunson Other [employer] Other 01-29-2023 10:15-0400 SaO2% (BldA) [Mass fraction] 95 % Gisele Brunson Other [employer] Other 01-29-2023 10:15-0400 Systolic blood pressure 118 mm[Hg] Gisele Brunson Other [employer] Other 01-12-2023 09:22-0400 Blood Pressure Location Anjali Ruby [facility] 01-12-2023 09:22-0400 Body temperature 96.98 [degF] Anjali Ruby [facility] 01-12-2023 09:22-0400 Diastolic blood pressure 68 mm[Hg] Anjali Ruby [facility] 01-12-2023 09:22-0400 Heart rate 69 /min Anjali Ruby [facility] 01-12-2023 09:22-0400 Systolic blood pressure 109 mm[Hg] Anjali Ruby [facility] 10-13-2022 09:45-0400 Body height 167.64 cm Gisele Brunson Other [employer] Other 10-13-2022 09:45-0400 Body mass index (BMI) [Ratio] 27.92 kg/m2 Gisele Brunson Other [employer] Other 10-13-2022 09:45-0400 Body weight 78.47 kg Gisele Brunson Other [employer] Other 10-13-2022 09:45-0400 Diastolic blood pressure 70 mm[Hg] Gisele Brunson Other [employer] Other 10-13-2022 09:45-0400 SaO2% (BldA) [Mass fraction] 95 % Gisele Brunson Other [employer] Other 10-13-2022 09:45-0400 Systolic blood pressure 116 mm[Hg] Gisele Brunson Other [employer] Other 09-22-2022 18:14-0400 Body temperature 99.86 [degF] Gordy S[facility]chez [facility] 09-22-2022 16:28-0400 Body temperature 101.3 [degF] Gordy S[facility]chez [facility] 09-22-2022 16:28-0400 Diastolic blood pressure 61 mm[Hg] Gordy Romane [facility] 09-22-2022 16:28-0400 Heart rate 79 /min Gordy Romane [facility] 09-22-2022 16:28-0400 Respiratory rate 17 /min Gordy Romane [facility] 09-22-2022 16:28-0400 SaO2% (BldA) [Mass fraction] 93 % Gordy Romane [facility] 09-22-2022 16:28-0400 Systolic blood pressure 111 mm[Hg] Gordy Romane [facility] 09-22-2022 14:10-0400 Body height 167.64 cm Griselda Pennington Other [employer] Other 09-22-2022 14:10-0400 Body mass index (BMI) [Ratio] 29.7 kg/m2 Griselda Pennington Other [employer] Other 09-22-2022 14:10-0400 Body temperature 100 [degF] Griselda Pennington Other [employer] Other 09-22-2022 14:10-0400 Body weight 83.46 kg Griselda Pennington Other [employer] Other 09-22-2022 14:10-0400 Respiratory rate 18 /min Griselda Pennington Other [employer] Other 09-22-2022 14:10-0400 SaO2% (BldA) [Mass fraction] 93 % Griselda Pennington Other [employer] Other 07-29-2022 10:15-0400 Body height 167.64 cm Erwin Salazar Other [employer] Other 07-29-2022 10:15-0400 Body mass index (BMI) [Ratio] 30.02 kg/m2 Erwin Salazar Other [employer] Other 07-29-2022 10:15-0400 Body weight 84.37 kg Erwin Salazar Other [employer] Other 07-29-2022 10:15-0400 Diastolic blood pressure 65 mm[Hg] Erwin Salazar Other [employer] Other 07-29-2022 10:15-0400 SaO2% (BldA) [Mass fraction] 94 % Erwin Salazar Other [employer] Other 07-29-2022 10:15-0400 Systolic blood pressure 102 mm[Hg] Erwin Salazar Other [employer] Other 11-29-2021 10:25-0400 Body height 167.64 cm Leti Garcia Other [employer] Other 11-29-2021 10:25-0400 Body temperature 96.9 [degF] Leti Garcia Other [employer] Other 11-29-2021 10:25-0400 Respiratory rate 18 /min Leti Garcia Other [employer] Other 11-29-2021 10:25-0400 SaO2% (BldA) [Mass fraction] 93 % Leti Garcia Other [employer] Other Encounters Encounter Date Encounter Type Care Provider Facility Start: 02-22-2025 ambulatory Demetirus Cooper Facility: [facility] Start: 02-09-2025 ambulatory [facility] Start: 02-06-2025 End: 02-06-2025 ambulatory STACEY PATEL [facility] Start: 01-18-2025 End: 01-18-2025 Office outpatient visit 15 minutes Veena H Itzkowitz DO Work Phone: [facility] Comment on above: Esophageal dysphagia (Primary Dx) Start: 01-18-2025 End: 01-18-2025 ambulatory VEENA H ITZKOWITZ Not Available Start: 01-08-2025 End: 01-08-2025 Office outpatient visit 15 minutes Veena H Itzkowitz DO Work Phone: [facility] Comment on above: Esophageal dysphagia (Primary Dx); Carcinoma of oropharynx (HCC) Start: 01-08-2025 End: 01-08-2025 ambulatory VEENA H ITYASMIN Not Available Start: 12-26-2024 Registered Recurring Talib Faustin MD [facility] Work Phone: Start: 12-26-2024 End: 12-26-2024 ambulatory Demetrius Cooper MD Work Phone: [facility] Work Phone: Start: 12-26-2024 End: 12-26-2024 Patient encounter procedure Becky Crouch [facility] Work Phone: Start: 12-13-2024 ambulatory [facility] Start: 12-11-2024 End: 12-11-2024 Office outpatient visit 15 minutes Mary Schneider MD Work Phone: [facility] Comment on above: 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 Start: 11-23-2024 Registered Recurring Talib Faustin MD [facility] Work Phone: Start: 11-23-2024 End: 11-23-2024 ambulatory Demetrius Cooper MD Work Phone: [facility] Work Phone: Start: 11-23-2024 End: 11-23-2024 Patient encounter procedure Talib Faustin MD [facility] Work Phone: Start: 11-23-2024 End: 11-23-2024 Patient encounter procedure Debora Campbell [facility] Start: 11-23-2024 End: 11-23-2024 ambulatory Demetrius Cooper MD Work Phone: [facility] Work Phone: Start: 11-23-2024 Non-patient / Non-visit Robina Campbell [facility] Work Phone: Start: 11-21-2024 End: 11-21-2024 ambulatory Demetrius Cooper Facility:[facility] Start: 2024 End: 2024 ambulatory MD Demetrius Cooper Facility:[facility] Start: 10-12-2024 End: 10-12-2024 ambulatory MD Demetrius Cooper Facility:[facility] Start: 10-11-2024 End: 10-11-2024 Postop follow up visit related to original px Veena H Itzkowitz DO Work Phone: [facility] Comment on above: Esophageal dysphagia (Primary Dx); Carcinoma of oropharynx (CMS/HCC) Start: 10-11-2024 End: 10-11-2024 ambulatory VEENA H ITZKOWITZ Not Available Start: 10-03-2024 End: 10-03-2024 External Result Encounter Veena H Itzkowitz DO Work Phone: [facility] External Department Unsolicited Start: 10-03-2024 End: 10-03-2024 External Result Encounter Veena H Itzkowitz DO Work Phone: [facility] External Department Unsolicited Start: 10-03-2024 End: 10-03-2024 Admission to same day surgery center Veena Itzkowitz DO [facility] [place] Start: 10-03-2024 End: 10-03-2024 ambulatory Veena Itzkowitz Facility:[facility] Start: 09-28-2024 End: 09-28-2024 ambulatory MD Demetrius Cooper Facility:[facility] Start: 09-28-2024 End: 09-28-2024 Bamboo flowsdonya PEMBERTON Work Phone: [facility] Start: 09-28-2024 End: 09-28-2024 Bamboo flowsheet Missy PEMBERTON Work Phone: [facility] Start: 09-28-2024 End: 09-28-2024 Office outpatient visit 15 minutes Missy PEMBERTON Work Phone: [facility] Comment on above: Vertigo (Primary Dx) ; Lumbar radiculopathy; Chronic bilateral low back pain, unspecified whether sciatica present; Degenerative disc disease, cervical; Migraine without aura and without status migrainosus, not intractable (CMS/HCC); Polyneuropathy Start: 09-28-2024 End: 09-28-2024 ambulatory MISSY LOWElizabeth Not Available Start: 09-27-2024 End: 09-27-2024 Office outpatient new 45 minutes Veena H Itzkowitz DO Work Phone: [facility] Comment on above: Esophageal dysphagia (Primary Dx) Start: 09-27-2024 End: 09-27-2024 ambulatory VEENA H ITZKOWITZ Not Available Start: 09-26-2024 End: 09-26-2024 ambulatory Demetrius Cooper MD Work Phone: [facility] Work Phone: Start: 09-26-2024 End: 09-26-2024 Patient encounter procedure Demetrius Cooper MD Work Phone: [facility] Work Phone: Start: 09-25-2024 Registered Recurring Demetrius gardiner MD Work Phone: [facility] Work Phone: Start: 09-20-2024 End: 09-20-2024 Emergency department patient visit Demetrius Cooper MD Work Phone: [facility]-Emergency Room Work Phone: Start: 09-14-2024 End: 09-14-2024 ambulatory MD Demetrius Cooper Facility:[facility] Start: 09-11-2024 End: 09-11-2024 Office outpatient visit 15 minutes Mary Schneider MD Work Phone: [facility] Comment on above: 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); Dysphagia, unspecified type Start: 09-11-2024 End: 09-11-2024 ambulatory MARY SCHNEIDER [facility] Start: 09-11-2024 End: 09-11-2024 Patient encounter procedure Demetrius Cooper MD Work Phone: [facility] Work Phone: Start: 09-07-2024 Registered Recurring Demetrius gardiner MD Work Phone: [facility] Acute Work Phone: Start: 09-07-2024 End: 09-07-2024 Patient encounter procedure Demetrius Cooper MD Work Phone: [facility] Work Phone: Start: 09-04-2024 End: 09-04-2024 ambulatory [facility] Start: 08-30-2024 End: 08-30-2024 Lab Drop off Demetrius Cooper [facility] Start: 08-30-2024 End: 08-30-2024 ambulatory Demetrius Cooper Facility:[facility] Start: 08-24-2024 End: 08-24-2024 ambulatory Demetrius Cooper Facility:[facility] Start: 08-23-2024 End: 08-23-2024 Patient encounter procedure Demetrius Cooper MD Work Phone: [facility] Work Phone: Start: 08-22-2024 End: 09-25-2024 ambulatory Demetrius Cooper Facility:CD:[id number] Start: 08-21-2024 Non-patient / Non-visit Demetrius Cooper MD Work Phone: [facility] Work Phone: Start: 08-21-2024 Non-patient / Non-visit Demetrius Cooper MD Work Phone: [facility] Work Phone: Start: 08-21-2024 ambulatory Debora Campbell Junito Faci lity:[facility] Start: 08-20-2024 End: 08-21-2024 Evaluation and management of inpatient Demetrius Cooper MD Work Phone: [facility] [place] [facility] Work Phone: Start: 08-18-2024 Registered Recurring Demetrius gardiner MD [facility] Work Phone: Start: 08-17-2024 Non-patient / Non-visit Demetrius Cooper MD Work Phone: [facility] Work Phone: Start: 08-17-2024 ambulatory Blossomjoel Gray Faci lity:[facility] Start: 08-17-2024 Registered Recurring Demetrius gardiner MD Work Phone: [facility] Start: 08-16-2024 Non-patient / Non-visit Demetrius Cooper MD Work Phone: [facility] Pall[facility] Work Phone: Start: 08-16-2024 Registered Recurring Demetrius gardiner MD Work Phone: [facility] Work Phone: Start: 08-16-2024 End: 08-16-2024 Patient encounter procedure Demetrius Cooper MD Work Phone: [facility] Start: 08-16-2024 End: 08-16-2024 ambulatory Demetrius Cooper MD Work Phone: [facility] Work Phone: Start: 08-14-2024 Non-patient / Non-visit [facility] Start: 08-10-2024 Non-patient / Non-visit Demetrius Cooper MD Work Phone: [facility] Work Phone: Start: 08-10-2024 Registered Recurring Demetrius gardiner MD Work Phone: [facility] Start: 08-09-2024 End: 08-09-2024 Patient encounter procedure Demetrius Cooper MD Work Phone: [facility] Work Phone: Start: 08-09-2024 Non-patient / Non-visit Demetrius Cooper MD Work Phone: [facility] Work Phone: Start: 08-09-2024 End: 08-09-2024 Patient encounter procedure Demetrius Cooper MD Work Phone: [facility] Start: 08-09-2024 End: 08-09-2024 ambulatory Demetrius Cooper MD Work Phone: [facility] Work Phone: Start: 08-07-2024 Non-patient / Non-visit Demetrius Cooper MD Work Phone: [facility] Work Phone: Start: 08-03-2024 Registered Recurring Demetrius gardiner MD Work Phone: [facility] Start: 08-03-2024 Non-patient / Non-visit Demetrius Cooper MD Work Phone: [facility] Work Phone: Start: 08-02-2024 Non-patient / Non-visit [facility]rius Cooper [facility] Start: 08-02-2024 End: 08-02-2024 Patient encounter procedure Demetrius Cooper MD Work Phone: [facility] Start: 08-02-2024 End: 08-02-2024 ambulatory Demetrius Cooper MD Work Phone: [facility] Work Phone: Start: 07-31-2024 Non-patient / Non-visit Demetrius Cooper MD Work Phone: [facility] Work Phone: Start: 07-27-2024 Registered Recurring Demetrius gardiner MD [facility] Start: 07-27-2024 Non-patient / Non-visit Demetrius Cooper MD Work Phone: [facility] Work Phone: Start: 07-26-2024 End: 07-26-2024 ambulatory MATTEO MELO V Not Available Start: 07-26-2024 Registered Recurring Demetrius gardiner MD Work Phone: [facility] Acute Work Phone: Start: 07-26-2024 Non-patient / Non-visit Demetrius Cooper MD Work Phone: [facility] Pall[facility] Work Phone: Start: 07-26-2024 End: 07-26-2024 Departed Referred Demetrius Cooper MD Work Phone: [facility] Start: 07-26-2024 End: 07-26-2024 ambulatory Demetrius Cooper MD Work Phone: [facility] Work Phone: Start: 07-26-2024 End: 07-26-2024 Patient encounter procedure Demetrius Cooper MD Work Phone: [facility] Work Phone: Start: 07-26-2024 Non-patient / Non-visit Demetrius Cooper MD Work Phone: [facility] Start: 07-24-2024 Non-patient / Non-visit Demetrius Cooper MD Work Phone: [facility] Work Phone: Start: 07-21-2024 ambulatory Mary Schneider Facilit y:[facility] Start: 07-20-2024 Registered Recurring Demetrius gardiner MD [facility] [place] Start: 07-20-2024 Non-patient / Non-visit Demetrius Cooper MD Work Phone: [facility] Work Phone: Start: 07-20-2024 End: 07-20-2024 Patient encounter procedure Demetrius Cooper MD Work Phone: [facility] Work Phone: Start: 07-19-2024 End: 07-19-2024 ambulatory [facility] Start: 07-19-2024 Non-patient / Non-visit [facility]etrius Cooper [facility] Start: 07-19-2024 End: 07-19-2024 Departed Referred Demetrius Cooper MD Work Phone: [facility] Start: 07-19-2024 End: 07-19-2024 Patient encounter procedure Demetrius Cooper MD Work Phone: [facility] Start: 07-19-2024 End: 07-19-2024 ambulatory Debora Wild Facility:[facility] Start: 07-17-2024 End: 07-17-2024 External Result Encounter Matteo Melo MD Work Phone: [facility] External Department Unsolicited Start: 07-17-2024 End: 07-17-2024 External Result Encounter Matteo Bell MD Work Phone: [facility] External Department Unsolicited Start: 07-17-2024 Registered Recurring Demetrius gardiner MD [facility] Work Phone: Start: 07-17-2024 End: 07-17-2024 Admission to same day surgery center [facility]rius Cooper [facility] [place] Start: 07-17-2024 End: 07-17-2024 ambulatory Demetrius Cooper MD Work Phone: [facility] Work Phone: Start: 07-17-2024 Non-patient / Non-visit Demetrius Cooper MD Work Phone: [facility] Work Phone: Start: 07-13-2024 Non-patient / Non-visit Demetrius Cooper MD Work [facility]: [facility] Ambulatory Work Phone: Start: 07-12-2024 Non-patient / Non-visit Demetrius Cooper MD Work Phone: [facility] Start: 07-12-2024 Registered Recurring Demetrius gardiner MD [facility]: [facility] Work Phone: Start: 07-12-2024 Non-patient / Non-visit Demetrius Cooper MD Work Phone: [facility] Physician [facility] Work Phone: Start: 07-12-2024 End: 07-12-2024 Patient encounter procedure Demetrius Cooper MD Work Phone: [facility] Work Phone: Start: 07-12-2024 End: 07-12-2024 ambulatory Demetrius Cooper MD Work Phone: [facility] Work Phone: Start: 07-10-2024 Non-patient / Non-visit Demetrius Cooper MD Work Phone: [facility] Work Phone: Start: 07-10-2024 End: 07-10-2024 ambulatory [facility] Start: 07-06-2024 Non-patient / Non-visit Demetrius Cooper MD Work Phone: [facility] Work Phone: Start: 07-06-2024 Non-patient / Non-visit [facility]etrius Cooper [facility] Start: 07-06-2024 Non-patient / Non-visit Demetrius Cooper MD Work Phone: [facility] Pall[facility] Work Phone: Start: 07-06-2024 End: 07-06-2024 Departed Referred Demetrius Cooper MD Work Phone: [facility] Start: 07-06-2024 End: 07-06-2024 Patient encounter procedure Demetrius Cooper MD Work Phone: [facility] Palliative Start: 07-06-2024 End: 07-06-2024 ambulatory Demetrius Cooper MD Work Phone: [facility] Work Phone: Start: 07-05-2024 Non-patient / Non-visit Demetrius Cooper MD Work Phone: [facility] Work Phone: Start: 07-04-2024 End: 07-04-2024 ambulatory Demetrius Cooper Facility:[facility] Start: 07-03-2024 End: 07-03-2024 Lab Drop off Mhd Ramin Lamas[facility] Start: 07-03-2024 End: 07-03-2024 Departed Referred Demetrius Cooper MD Work Phone: [facility] Main [place] Start: 07-03-2024 End: 07-03-2024 Lab Drop off Demetrius Cooper [facility] Start: 07-03-2024 End: 07-03-2024 ambulatory Demetrius Cooper Facility:[facility] Start: 06-23-2024 End: 06-23-2024 Patient encounter procedure Isabel Romano AUD Work Phone: [facility] Comment on above: Sensorineural hearin g loss, bilateral (Primary Dx); Tinnitus, bilateral Start: 06-23-2024 End: 06-23-2024 ambulatory ISABEL Polina ROMANO Not Available Start: 06-23-2024 End: 06-23-2024 Bamboo flowsheet Isabel Romano AUD Work Phone: [facility] SH [facility] Start: 06-23-2024 End: 06-23-2024 Bamboo flowsheet Isabel Romano AUD Work Phone: [facility] JOHN [facility] Start: 06-22-2024 End: 06-22-2024 Patient encounter procedure Demetrius Cooper MD Work Phone: [facility]-Pre-Surgical Testing Work Phone: Start: 06-22-2024 End: 06-22-2024 ambulatory Demetrius Cooper MD Work Phone: [facility] Work Phone: Start: 06-22-2024 Encounter for preprocedural laboratory examination Matteo Denis [facility] Start: 06-22-2024 End: 06-22-2024 External Result Encounter Matteo Melo MD Work Phone: [facility] External Department Unsolicited Start: 06-22-2024 End: 06-22-2024 External Result Encounter Matteo Bell MD Work Phone: [facility] External Department Unsolicited Start: 06-20-2024 End: 06-20-2024 Office outpatient new 45 minutes Matteo Melo MD Work Phone: [facility] Comment on above: Poor intravenous acc ess (Primary Dx); Carcinoma of oropharynx (CMS/HCC) Start: 06-20-2024 End: 06-20-2024 ambulatory MATTEO MELO V Not Available Start: 06-20-2024 Non-patient / Non-visit Demetrius Cooper MD Work Phone: [facility] Work Phone: Start: 06-20-2024 Registered Recurring Demetrius gardiner MD Work Phone: [facility] Acute Work Phone: Start: 06-14-2024 End: 06-14-2024 ambulatory Demetrius Cooper MD Work Phone: [facility] Work Phone: Start: 06-14-2024 End: 06-14-2024 Patient encounter procedure Demetrius Cooper MD Work Phone: [facility] Work Phone: Start: 06-14-2024 Registered Recurring Demetrius gardiner MD Work Phone: [facility] Work Phone: Start: 06-14-2024 End: 06-14-2024 ambulatory Demetrius Cooper MD Work Phone: [facility] Work Phone: Start: 06-14-2024 End: 06-14-2024 Patient encounter procedure Demetrius Cooper MD Work Phone: [facility] Work Phone: Start: 06-06-2024 End: 06-06-2024 ambulatory STACE[facility] [place] Start: 06-05-2024 End: 06-05-2024 Subsequent hospital visit by physician [facility] Comment on above: Enlarged submental l ymph node Start: 06-05-2024 End: 06-05-2024 ambulatory MARY Tripp [facility]NE[facility] Start: 05-30-2024 End: 05-30-2024 Postop follow up visit related to original px Mary Schneider MD Work Phone: [facility] Comment on above: 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); Metastasis to cervical lymph node Start: 05-30-2024 End: 05-30-2024 ambulatory MARY Tripp [facility] Start: 05-15-2024 End: 05-15-2024 Subsequent hospital visit by physician Rad External Film EF RAD EXTERNAL FILM VIRTUAL Comment on above: Arrived Start: 05-15-2024 End: 05-15-2024 ambulatory MARY Tripp [facility] Start: 05-11-2024 End: 05-11-2024 Subsequent hospital visit by physician Mary Schneider MD Work Phone: [facility] [place] Comment on above: 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 Start: 04-17-2024 End: 04-17-2024 Lab Drop off Demetrius Cooper [facility] Start: 04-17-2024 End: 04-17-2024 ambulatory Demetrius Cooper Facility:[facility] Start: 04-11-2024 End: 04-11-2024 ambulatory MARY SCHNEIDER [facility] Start: 04-11-2024 End: 04-11-2024 Encounter for other preprocedural examination MARY Tripp [facility] Start: 04-11-2024 End: 04-11-2024 Encounter for preprocedural cardiovascular examination MARY Tripp [facility] Start: 04-11-2024 End: 04-11-2024 Encounter for preprocedural respiratory examination MARY Tripp [facility] Start: 04-07-2024 End: 04-07-2024 Office outpatient new 45 minutes Mary Schneider MD Work Phone: [facility] Comment on above: 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); Oral lesion; Malignant neoplasm of floor of mouth Start: 04-07-2024 End: 04-07-2024 ambulatory MARY Tripp [facility] Start: 03-29-2024 End: 03-29-2024 Bamboo flowsdonya Ham [...] Start: 03-27-2024 End: 03-27-2024 ambulatory LUC HAM Facility:[facility] Start: 03-27-2024 End: 03-27-2024 Subsequent hospital visit by physician Arrival Time Radiology Work Phone: Radiology [facility] Start: 03-23-2024 End: 03-23-2024 ambulatory Inez Henderson Facility:[facility] Start: 03-23-2024 End: 03-23-2024 Patient encounter procedure Inez Henderson [facility] Start: 03-08-2024 End: 03-08-2024 Bamboo flowsheet Luc Ham MD Work Phone: [facility] Start: 03-08-2024 End: 03-08-2024 Bamboo flowsdonya Ham MD Work Phone: [facility] Start: 03-08-2024 End: 03-08-2024 Office outpatient visit 40 minutes Luc Ham MD Work Phone: [facility] Comment on above: Oral ulcer (Primary Dx); 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) Start: 03-08-2024 End: 03-08-2024 ambulatory LUC GAYTANMIS Not Available Start: 03-06-2024 End: 03-06-2024 Telephone encounter Luc Ham MD Work Phone: [facility] [place] Start: 02-29-2024 End: 02-29-2024 ambulatory MD Demetrius Cooper Work Phone: [facility] Work Phone: Start: 02-29-2024 End: 02-29-2024 Departed Referred MD Demetrius Cooper Work Phone: [facility]LAB [facility] Start: 02-16-2024 End: 02-16-2024 Office outpatient visit 25 minutes Luc Ham MD Work Phone: [facility] Comment on above: LAD (lymphadenopathy ) of right cervical region (Primary Dx) Start: 02-16-2024 End: 02-16-2024 ambulatory LUC H TIMMIS Not Available Start: 02-16-2024 End: 02-16-2024 Bamboo flowsheet Missy [place] Work Phone: [facility] [address] Start: 02-16-2024 End: 02-16-2024 Bamboo flowsheet Missy Malou PA Work Phone: [facility] [address] Start: 02-16-2024 End: 02-16-2024 Office outpatient visit 15 minutes Missy Gomeselizabeth [place] Work Phone: [facility] Comment on above: Migraine without aur a and without status migrainosus, not intractable (CMS/HCC) (Primary Dx); Vertigo; Lumbar radiculopathy; Neck pain; Degenerative disc disease, cervical; Polyneuropathy Start: 02-16-2024 End: 02-16-2024 ambulatory MISSY MALOU Not Available Start: 02-14-2024 End: 02-14-2024 ambulatory LUC HAM Not Available Start: 02-02-2024 End: 02-18-2024 Telephone encounter Vaishali Pringle MD Work Phone: General Surgery Comment on above: MRI Appointment; Car e Coordinator - Other Start: 02-01-2024 End: 02-01-2024 Bambosahra flowsdonya Ham MD Work Phone: [facility] Start: 02-01-2024 End: 02-01-2024 Joie flowsdonya Ham MD Work Phone: [facility] Start: 02-01-2024 End: 02-01-2024 Office outpatient new 30 minutes Luc Ham MD Work Phone: [facility] Comment on above: Parotid mass (Primar y Dx) Start: 02-01-2024 End: 02-01-2024 Refill Vaishali Pringle MD Work Phone: General Surgery Start: 01-10-2024 End: 01-10-2024 ambulatory Demetrius Cooper Facility:[facility] Start: 11-09-2023 End: 11-09-2023 Patient encounter procedure Inez Henderson [facility] Start: 10-21-2023 End: 10-21-2023 Patient encounter procedure Inez Henderson [facility] Start: 09-17-2023 End: 09-17-2023 Patient encounter procedure Anjali Ruby [facility] Start: 09-02-2023 End: 09-02-2023 ambulatory [facility] Work Phone: Start: 09-02-2023 End: 09-02-2023 Patient encounter procedure [facility] Physician [facility] Sleep Lab Work Phone: Start: 07-27-2023 End: 07-27-2023 Patient encounter procedure [facility] Physician [facility] [place] Work Phone: Start: 05-31-2023 Office outpatient vi sit 25 minutes Gisele [facility] Start: 05-31-2023 End: 05-31-2023 ambulatory MD Demetrius Cooper Work Phone: [facility] Work Phone: Start: 05-31-2023 End: 05-31-2023 Patient encounter procedure MD Demetrius Cooper Work Phone: [facility]-Sleep Lab Work Phone: Start: 05-25-2023 End: 05-25-2023 Patient encounter procedure Anjali Omalley Flori [facility] Start: 04-05-2023 Telephone encounter Vaishali orr MD Work Phone: General Surgery Comment on above: [facility] Start: 04-01-2023 End: 04-01-2023 ambulatory VAISHALI PRINGLE Facility:[facility] Start: 04-01-2023 End: 04-01-2023 Patient encounter procedure Vaishali Pringle MD Work Phone: General Surgery Comment on above: IPMN (intraductal pa pillary mucinous neoplasm) (Primary Dx) Start: 03-10-2023 End: 03-10-2023 Patient encounter procedure Anjali Ruby [facility] Start: 03-10-2023 End: 03-10-2023 Patient encounter procedure Anjali Ruby [facility] Start: 02-25-2023 End: 02-25-2023 Patient encounter procedure Anjali Ruby [facility] Start: 02-16-2023 End: 02-16-2023 ambulatory MD Demetrius Cooper Work Phone: [facility] Work Phone: Start: 02-16-2023 End: 02-16-2023 Patient encounter procedure MD Demetrius Cooper Work Phone: [facility]-MRI Main [place] Work Phone: Start: 01-29-2023 Office outpatient vi sit 25 minutes Gisele [facility] Start: 01-29-2023 End: 01-29-2023 ambulatory MD Demetrius Cooper Work Phone: [facility] Work Phone: Start: 01-29-2023 End: 01-29-2023 Patient encounter procedure MD Demetrius Cooper Work Phone: [facility]-Sleep Lab Work Phone: Start: 01-27-2023 ambulatory Facility:[id number] Start: 01-27-2023 End: 01-27-2023 ambulatory MD Demetrius Cooper Work Phone: [facility] Work Phone: Start: 01-27-2023 End: 01-27-2023 Patient encounter procedure MD Demetrius Cooper Work Phone: [facility]-Pacemaker Check Start: 01-12-2023 End: 01-12-2023 Patient encounter procedure Anjali A Flori [facility] Start: 12-17-2022 End: 12-17-2022 Patient encounter procedure Anjali Ruby [facility] Start: 12-09-2022 End: 12-09-2022 ambulatory MD Demetrius Cooper Work Phone: [facility] Work Phone: Start: 12-09-2022 End: 12-09-2022 Patient encounter procedure MD Demetrius Cooper Work Phone: [facility]-Sleep Lab Work Phone: Start: 11-23-2022 End: 11-23-2022 Lab Drop off Demetrius Cooper [facility] Start: 10-13-2022 Office outpatient vi sit 15 minutes [facility] Start: 10-13-2022 End: 10-13-2022 ambulatory MD Mg London Work Phone: [facility] Work Phone: Start: 10-13-2022 End: 10-13-2022 Patient encounter procedure MD Mg London Work Phone: [facility]-Sleep Lab Work Phone: Start: 09-29-2022 End: 09-29-[address] EDY CARNEY Facility:H1 Start: 09-24-2022 End: 09-25-[address] MG LONDON Facility:H1 Start: 09-22-2022 End: 09-22-2022 Emergency department patient visit Gordy S[facility]chez [facility] Start: 09-22-2022 Office outpatient vi sit 15 minutes Griselda Pennington [facility] [place] Start: 09-22-2022 End: 09-22-2022 ambulatory NARENDRANATH LAKSHMIPATHY . [facility] [employer] Other Start: 08-25-2022 End: 08-26-2022 ambulatory NARENDRANATH LAKSHMIPATHY . Facility:H1 Start: 08-12-2022 ambulatory Facility:[id number] Start: 08-12-2022 End: 08-12-2022 ambulatory MD Mg London Work Phone: [facility] Work Phone: Start: 08-12-2022 End: 08-12-2022 Patient encounter procedure MD Mg London Work Phone: [facility]-MRI Main [place] Work Phone: Start: 08-11-2022 End: 08-11-2022 ambulatory NARENDRANATH LAKSHMIPATHY . Facility:H1 Start: 07-29-2022 Office outpatient ne w 60 minutes Erwin Salazar [facility] Start: 07-29-2022 End: 07-29-2022 ambulatory MD Mg London Work Phone: [facility] Work Phone: Start: 07-29-2022 End: 07-29-2022 Patient encounter procedure MD Mg London Work Phone: [facility]-Sleep Lab Work Phone: Start: 07-23-2022 End: 07-24-2022 ambulatory SONNY LAZO . Facility:H1 Start: 07-22-2022 End: 07-23-2022 [facility] Facility[facility] Start: 07-21-2022 ambulatory Facility:[id number] Start: 07-21-2022 End: 07-21-2022 ambulatory MD Mg London Work Phone: [facility] Work Phone: Start: 07-21-2022 End: 07-21-2022 Patient encounter procedure MD Mg London Work Phone: [facility]-Pacemaker Check Start: 06-18-2022 End: 07-10-2022 ambulatory SONA COPPOLA Facility:H1 Start: 06-16-2022 End: 06-17-2022 ambulatory SONA COPPOLA Facility:H1 Start: 06-11-2022 End: 06-12-2022 ambulatory [facility] Facility:H1 Start: 05-26-2022 End: 05-26-2022 Patient encounter procedure Dequan GALICIA [facility] Start: 04-16-2022 End: 04-17-[address] ERWIN FALCON Facility:H1 Start: 03-19-[address] AMANDA CLANCY . Faci lity:H1 Start: 03-12-2022 End: 03-13-2022 ambulatory [facility] Rick [facility] Facility:H1 Start: 03-10-2022 End: 03-11-2022 ambulatory DIEGO COYNE Facility:H1 Start: 03-06-2022 End: 03-07-[address] DOCTOR GOFF Facility:H1 Start: 12-25-2021 End: 12-26-2021 ambulatory SONNY LAZO . Facility:H1 Start: 12-01-2021 End: 12-02-2021 ambulatory [facility] Facility:H1 Start: 11-29-2021 End: 11-29-2021 ambulatory Leti Garcia Other [employer] Other Start: 11-29-2021 Office outpatient vi sit 15 minutes Leti Garcia [facility] [place] Start: 11-13-2021 End: 12-19-2021 ambulatory OSMAR JARQUIN Facility:H1 Start: 09-04-2020 End: 09-04-2020 Patient encounter procedure Param Cosme Work Phone: -[facility] Main [place] Start: 08-15-2020 End: 08-15-2020 Patient encounter procedure Param Cosme -Pacemaker Check Start: 08-30-2019 End: 08-31-2019 Patient encounter procedure MARGARET ARELLANO [facility] Procedures Date Procedure Procedure Detail Performing Clinician Start: 11-13-2024 Positron emission tomography with computed tomography Demetrius Cooper MD Work Phone: Start: 10-03-2024 Upper gastrointestinal endoscopy for directed placement of percutaneous gastrostomy tube Demetrius Cooper MD Work Phone: Start: 10-03-2024 GLUCOSE POCT GLUCOMETERS Veena Jane Vandana BRAMBILA Work Phone: Start: 09-20-2024 Computed tomography of [...] Work Phone: Start: 07-17-2024 Plain chest X-ray Demterius Cooper MD Work Phone: Start: 07-17-2024 Central [...] Schneider MD Work Phone: Start: 05-11-2024 VERAB/VERIFY ABORH [...] on above: Performed By: #### CBC #### [facility] [address] [place], [place] [address] Dr. Ramsey Sanchez Start: 05-20-2020 Esophagogastroduodenoscopy Dequan [...] procedure 06/08/2025 1:30 PM EST Office Visit [facility] [address] [place] [phone] [place] [address] [place] [address] [facility] Start: 04-11-2025 Creatinine measurement Creatinine Le kortney [facility] Start: 04-11-2025 Potassium measurement Potassium Leve l [facility] Start: 04-03-2025 End: 04-03-2025 Patient encounter procedure 04/03/2025 11:00 AM EST Office Visit [facility] [address] [place] [phone] Missy Villarreal NP [address] [place], [place] [facility] Start: 01-15-2025 Influenza vaccination Influenza Vacc ine (#1) [facility] Start: 12-26-2024 Patient referral [facility] Work Phone: Start: 12-11-2024 End: 12-11-2024 Patient encounter procedure 12/11/2024 10:00 AM EDT Office Visit [facility] [address] [place] [phone] [place] [address] [place] [address] [facility] Start: 10-11-2024 End: 10-11-2024 Patient encounter procedure 10/11/2024 2:15 PM EDT Office Visit [facility] [address] [place] [phone] Veena Ross DO [address] [place] [address] [address] [facility] Start: 10-03-2024 [facility] Start: 09-28-2024 End: 09-28-2024 Patient encounter procedure [facility]IS[facility]O [facility] Comment on above: Arrived Start: 08-29-2024 End: 08-29-2024 Patient encounter procedure [facility] [address] Start: 08-21-2024 [facility] Start: 08-21-2024 Administration of prophylactic treatment [facility] Start: 08-21-2024 [facility] Start: 08-21-2024 [facility] Start: 08-20-2024 Referral to infectio us diseases physician [facility] Start: 08-20-2024 [facility] Start: 08-20-2024 CT Chest WO contrast Fi relaReplaced by [facility] Start: 08-20-2024 CT of chest without contrast CT chest wo con [facility] Start: 08-20-2024 Hospital admission [facility] Start: 08-20-2024 [facility] Start: 08-20-2024 Bacteria identified in Blood by Culture Blood Culture [facility] Start: 08-17-2024 [facility] Start: 08-09-2024 End: 08-09-2024 [facility] Start: 08-03-2024 End: 08-03-2024 [facility] Start: 08-03-2024 [facility] Start: 07-27-2024 [facility] Start: 07-26-2024 End: 07-26-2024 Patient encounter procedure 07/26/2024 10:15 AM EDT Office Visit [facility] [address] [place] [phone] Matteo Melo MD [address] [place] [address] [facility] Start: 07-20-2024 [facility] Start: 07-20-2024 [facility] Start: 07-17-2024 [facility] Start: 07-13-2024 [facility] Start: 07-11-2024 End: 07-11-2024 Patient encounter procedure 07/11/2024 1:15 PM EST Office Visit [facility] [address] [place] [phone] Matteo Melo MD [address] [place] [address] [facility] Start: 07-06-2024 [facility] Start: 07-03-2024 Central venous cannu la insertion OR Infusaport Insertion/Removal (Not Applicable) [facility] Start: 06-30-2024 [facility] Start: 06-23-2024 End: 06-23-2024 Patient encounter procedure [facility] Comment on above: Arrived Start: 06-14-2024 Patient referral [facility] Work Phone: Start: 06-05-2024 End: 06-05-2024 Patient encounter procedure 06/05/2024 1:00 PM EST Appointment [facility] [address] [place] [address] [facility] Start: 05-30-2024 End: 05-30-2024 Telemedicine consultation with patient 05/30/2024 11:45 AM EST Telemedicine [facility] [address] [place] [address] [place] [address] [place] [address] [facility] Start: 05-11-2024 End: 05-11-2024 [facility] w/cell washg spx 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 05/11/2024 7:17 AM EST [facility] [place] Start: 05-11-2024 End: 05-11-2024 Esophagoscopy flexible [...] hospital visit by physician 04/19/2024 Hospital Encounter [facility] [place] [address] [place] [address] [place] [address] [place] [address] [facility] [place] Start: 04-07-2024 End: 04-07-2025 Request for Pre-Admission Testing Visit Request for Pre-Admission Testing Visit Procedures Routine Oral lesion Malignant neoplasm of floor of mouth Expected: 04/07/2024 (Approximate), Expires: 04/07/[address] [facility] Service Area Work Phone: Comment on above: Expected: 04/07/2024 (Approximate), Expires: 04/07/2025 Start: 03-08-2024 End: 03-08-2024 Patient encounter procedure [facility] Comment on above: Arrived Start: 02-16-2024 End: 02-16-2024 Patient encounter procedure 02/16/2024 2:30 PM EDT Office Visit [facility] [address] [place] [address] Luc Ham MD [address] [place] [address] [facility] Start: 02-16-2024 End: 02-16-2024 Patient encounter procedure [facility] [address] Comment on above: Arrived Start: 02-01-2024 End: 02-01-2024 Patient encounter procedure 02/01/2024 1:10 PM EDT Office Visit [facility] [address] [address] [place] [address] Luc Ham MD [address] [place] [address] Arrived [facility] Comment on above: Arrived Start: 01-16-2024 Covid-19 Vaccine ( season) Covid-19 Vaccine ( season) [facility] Start: 01-16-2024 Covid-19 Vaccine () Covid-19 Vaccine () [facility] Start: 01-16-2024 Covid-19 Vaccine ( season) Covid-19 Vaccine ( season) [facility] Start: 01-16-2024 Influenza vaccination Influenza Vacc ine (#1) [facility] Start: 05-17-2023 Advance Directive Discussion Advance Directive Discussion [facility] Start: 01-15-2023 Covid-19 Vaccine ( season) Covid-19 Vaccine ( season) [facility] Start: 01-15-2023 Influenza vaccination Influenza Vacc ine (#1) [facility] Start: 11-12-2022 ambulatory Ambulatory Facility:H 1 Start: 05-17-2022 Advance Directive Discussion Advance Directive Discussion [facility] Start: 05-17-2022 Depression Assessment Depression Ass essment [facility] Start: 09-04-2020 MRI of right ankle MR ankle RT wo co n [facility] Start: 09-04-2020 XR pre/post mri xray XR pre/post mri xray [facility] Start: 01-30-2015 Pneumococcal Vaccine : 65+ (2 - PPSV23 or PCV20) Pneumococcal Vaccine: 65+ (2 - PPSV23 or PCV20) [facility] Start: 01-30-2015 Pneumococcal Vaccine : 65+ (2 of 2 - PPSV23 or PCV20) Pneumococcal Vaccine: 65+ (2 of 2 - PPSV23 or PCV20) [facility] Start: 10-29-2014 RSV High Risk: (Elde rly (60+) or Population) (1 - 1-dose 75+ series) RSV High Risk: (Elderly (60+) or Population) (1 - 1-dose 75+ series) [facility] Start: 10-29-2014 RSV Vaccine (1 - 1-d ose 75+ series) RSV Vaccine (1 - 1-dose 75+ series) [facility] Start: 1999 RSV Vaccine (1 - 1-d ose 60+ series) RSV Vaccine (1 - 1-dose 60+ series) [facility] Start: 10-29-1989 Shingrix Vaccine (1 of 2) Best grix Vaccine (1 of 2) [facility] Start: 10-29-1984 Diabetes Screening Diabetes Screenin g [facility] Start: 10-29-1961 DTaP/Tdap/Td Vaccine s (1 - Tdap) DTaP/Tdap/Td Vaccines (1 - Tdap) [facility] Start: 10-29-1958 Urine microalbumin profile DTa P,Tdap,Td Vaccine (1 - Tdap) [facility] Start: 10-29-1958 Urine screening for protein Diabetes: Urine Protein Screening [facility] Start: 10-29-1957 Anxiety Screening Anxiety Screening [facility] Start: 10-29-1957 Depression Screening Depression Scre ening [facility] Start: 10-29-1949 Glaucoma screening Diabetes: R etinopathy Screening [facility] Start: 1940 Annual wellness visit Welcome to Medicare Visit [facility] Start: 1939 Echocardiography Echocardiogram [facility] Start: 1939 Hemoglobin A1c measurement Mary betes: Hemoglobin A1C [facility] Start: 1939 Lipid panel Lipid Panel [facility] Start: 1939 Medicare Annual Well ness Visit Medicare Annual Wellness Visit (AWV) [facility] Start: 1939 Urine screening for protein Diabetes: Urine Protein Screening [facility] End: 05-11-2024 Cardiac device check - Inpatient [facility] Service Area Work Phone: Comment on above: Once for 1 Occurrenc es starting 05/11/2024 until 05/11/2024 End: 05-11-2024 Cardiac device check - Surgery [facility] Work Phone: Comment on above: Once for 1 Occurrenc es starting 05/11/2024 until 05/11/2024 Comprehensive metabo lic 2000 panel - Serum or Plasma [facility] Comprehensive metabo lic 1999 panel - Serum or Plasma [facility] Comprehensive metabo lic 1999 panel - Serum or Plasma [facility] Comprehensive metabo lic 1999 panel - Serum or Plasma [facility] Comprehensive metabo lic 1999 panel - Serum or Plasma [facility] CT with contrast for radiotherapy planning [facility] CT with contrast for radiotherapy planning [facility] End: 05-11-2024 Glucose [Mass/volume] in Serum or Plasma POCT Glucose Point of Care Testing - Docked Device Routine Once (Lab) for 1 Occurrences starting 05/11/2024 until 05/11/[address] [facility] Service Area Work Phone: Comment on above: Once (Lab) for 1 Occ urrences starting 05/11/2024 until 05/11/2024 Laryngoscopy w/wo tracheoscopy dx except Direct Laryngoscopy Oral lesion Malignant neoplasm of floor of mouth [facility] End: 03-02-2025 MR Biliary ducts and Pancreatic duct WO and W contrast IV MRI PANC/TRISH WO/W IVCON Radiology Routine IPMN (intraductal papillary mucinous neoplasm) 1 Occurrences starting 02/01/2024 until 03/02/2025 [facility] Work Phone: Comment on above: 1 Occurrences starti ng 02/01/2024 until 03/02/2025 End: 03-02-2025 MR Unspecified body region 3D post processing MRI 3D POST PROCESSING Radiology Routine IPMN (intraductal papillary mucinous neoplasm) 1 Occurrences starting 02/01/2024 until 03/02/2025 [facility] Comment on above: 1 Occurrences starti ng 02/01/2024 until 03/02/2025 Patient Education [facility] Work Phone: Patient referral [facility] Work Phone: Surgical pathology study Surgica l Pathology Exam Pathology and Cytology Routine Oral lesion 04/07/2024 11:37 AM EST [facility] Work Phone: Surgical pathology study [facility] S Service Area Work Phone: Comment on above: Release Upon Orderin g for 1 Occurrences starting 05/11/2024, 1 completed End: 06-05-2024 Surgical pathology study [facility] Service Ar ea Work Phone: Comment on above: Once (Lab) for 1 Occ urrences starting 06/05/2024 until 06/05/2024, 1 completed [facility] Immunizations Immunization Date Immunization Notes Care Provider Arely brantley 04-17-2024 influenza, high dose seasonal, preservative-free; Translations: [Fluzone High Dose Vaccine] Demetrius Cooper [facility] [place] 04-17-2024 influenza virus vaccine, unspecified formulation Mary Schneider MD Work Phone: [facility] Work Phone: 02-09-2024 zoster vaccine recombinant Wiley Sarmini [facility] 11-22-2023 pneumococcal 20-reta nt conjugate vaccine Wiley Sarmini [facility] 11-22-2023 zoster vaccine recombinant Wiley Sarmini [facility] 04-28-2023 COVID-19 (PFIZER) 12Y and older Demetrius Cooper MD Work Phone: [facility] 04-12-2023 influenza virus vaccine, unspecified formulation Anjali Ruby [facility] 11-25-2021 Pfizer Haque Cap SARS-CoV-2 Vaccination Luc Ham MD Work Phone: [facility] 11-25-2021 SARS-CoV-2 mRNA (pvnlxundmdn-xvmo-akso ose) vaccine Demetrius Cooper [facility] 11-25-2021 SARS-CoV-2, Unspecified Missy PEMBERTON Work Phone: [facility] 03-06-2021 SARS-CoV-2 (COVID-19 ) mRNA BNT-162b2 vax Demetrius Cooper [facility] Comment on above: Result Comment: 2022: [id number] 03-06-2021 SARS-CoV-2, Unspecified Luc Ham MD Work Phone: [facility] 02-18-2021 influenza virus vaccine, unspecified formulation Demetrius Cooper [facility] 02-18-2021 Influenza, injectabl e, Madin Mireya Canine Kidney, preservative free, quadrivalent Luc Ham MD Work Phone: [facility] 06-27-2020 SARS-CoV-2 (COVID-19 ) Ad26 vaccine, recombinant Dequan GALICIA [facility] 06-27-2020 SARS-CoV-2 (COVID-19 ) mRNA BNT-162b2 vax Dequan GALICIA [facility] 06-27-2020 SARS-CoV-2, Unspecified Luc Ham MD Work Phone: [facility] 06-06-2020 SARS-CoV-2 (COVID-19 ) Ad26 vaccine, recombinant Dequan GALICIA [facility] 06-06-2020 SARS-CoV-2 (COVID-19 ) mRNA BNT-162b2 vax Dequancassidy GALICIA [facility] 06-06-2020 SARS-CoV-2, Unspecified Luc Ham MD Work Phone: [facility] 02-14-2020 influenza virus vaccine, unspecified formulation Demetrius Cooper [facility] 02-14-2020 Influenza, injectabl e, Madin [place] Canine Kidney, preservative free, quadrivalent Luc Ham MD Work Phone: [facility] 01-31-2019 influenza, high dose seasonal, preservative-free Luc Ham MD Work Phone: [facility] 01-22-2018 influenza virus vaccine, unspecified formulation Luc Ham MD Work Phone: [facility] 01-22-2018 influenza, injectabl e, quadrivalent, contains preservative Luc Ham MD Work Phone: [facility] 01-22-2018 influenza, unspecifi ed formulation Demetrius Cooper [facility] 01-30-2014 pneumococcal conjuga te vaccine, 13 kathryn Cooper [facility] 01-30-2014 pneumococcal conjuga te vaccine, 7 kathryn Ham MD Work Phone: [facility] Payers Date Payer Category Payer Private Health Insurance [id number] 2024 Self-pay [id number] 2023 Dual Eligibility Medicare/Medicaid Organization [facility] [id number] 2022 Medicare [id number] 1.13.159. [id number] 2022 Medicare (Managed Care) 1.2. [id number]. [id number] 2022 Medicare [id number] 2022 Medicare [id number] 2.16.840.1.879479.19 1959 Medicare [id number] 1959 Medicare [id number] 1959 Medicare [id number] 1959 Unknown [id number] 1939 Unknown [id number] 2.16.840.1.296964.3.579. 2.647 1939 Unknown [id number] 2.16.840.1.416542.3.579. 2.593 1939 Unknown [id number] 2.16.840.1.528510.3.579. 2.593 1939 Unknown [id number] 2.16.840.1.493867.3.579. 2.593 1939 Unknown [id number] 2.16.840.1.583216.3.579. 2.593 1939 Unknown [id number] 2.16.840.1.308370.3.579. 2.593 1939 Unknown [id number] 2.16.840.1.465838.3.579. 2.593 1939 Unknown [id number] 2.16.840.1.427709.3.579. 2.593 1939 Unknown [id number] 2.16.840.1.120377.3.579. 2.593 1939 Unknown [id number] 2.16.840.1.652245.3.579. 2.593 1939 Unknown [id number] 2.16.840.1.206618.3.579. 2.593 1939 Unknown [id number] 2.16.840.1.261647.3.579. 2.593 1939 Unknown [id number] 2.16.840.1.373848.3.579. 2.593 1939 Unknown [id number] 2.16.840.1.936078.3.579. 2.593 1939 Unknown [id number] 2.16.840.1.225101.3.579. 2.593 1939 Unknown [id number] 2.16.840.1.983493.3.579. 2.593 1939 Unknown [id number] 2.16.840.1.462437.3.579. 2.593 1939 Unknown [id number] 2.16.840.1.186349.3.579. 2.593 1939 Unknown [id number] 2.16.840.1.784705.3.579. 2.593 1939 Unknown [id number] 2.16.840.1.959769.3.579. 2.593 1939 Unknown [id number] 2.16.840.1.040325.3.579. 2.593 1939 Unknown [id number] 2.16.840.1.369541.3.579. 2.356 1939 Unknown [id number] 2.16.840.1.810907.3.579. 2.356 1939 Unknown [id number] 2.16.840.1.993179.3.579. 2.356 1939 Unknown [id number] 2.16.840.1.885650.3.579. 2.727 1939 Unknown [id number] 2.16.840.1.291438.3.579. 2.727 1939 Unknown [id number] 2.16.840.1.620902.3.579. 2.727 1939 Unknown [id number] 2.16.840.1.683849.3.579. 2.727 1939 Unknown [id number] 2.16.840.1.672911.3.579. 2.727 1939 Unknown [id number] 2.16.840.1.937000.3.579. 2.727 1939 Unknown [id number] 2.16.840.1.756524.3.579. 2.727 1939 Unknown [id number] 2.16.840.1.477954.3.579. 2.72 1939 Unknown [id number] 2.16.840.1.676679.3.579. 2. 1939 Unknown [id number] 2.16.840.1.813660.3.579. 2. 1939 Unknown [id number] 2.16.840.1.654960.3.579. 2. 1939 Unknown [id number] 2.16.840.1.737102.3.579. 2. 1939 Unknown [id number] 2.16.840.1.885175.3.579. 2 1939 Unknown [id number] 2.16.840.1.149378.3.579. 2. 1939 Unknown [id number] 2.16.840.1.599734.3.579. 2. 1939 Unknown [id number] 2.16.840.1.553734.3.579. 2. 1939 Unknown [id number] 2.16.840.1.116959.3.579. 2. 1939 Unknown [id number] 2.16.840.1.017029.3.579. 2. 1939 Unknown [id number] 2.16.840.1.105710.3.579. 2.124 1939 Unknown [id number] 2.16.840.1.655639.3.579. 2.1244 1939 Unknown [id number] 2.16.840.1.699998.3.579. 2.1244 1939 Unknown [id number] 2.16.840.1.757577.3.579. 2.1244 1939 Unknown [id number] 2.16.840.1.382039.3.579. 2.1245 1939 Unknown [id number] 2.16.840.1.723018.3.579. 2.124 1939 Unknown [id number] 2.16.840.1.930563.3.579. 2.124 1939 Unknown [id number] 2.16.840.1.542419.3.579. 2.124 1939 Unknown [id number] 2.16.840.1.273026.3.579. 2.124 1939 Unknown [id number] 2..840.1.085671.3.579. 2.125 1939 Unknown [id number] 2.16.840.1.735042.3.579. 2.125 1939 Unknown [id number] 2..840.1.275030.3.579. 2.125 1939 Unknown [id number] 2..840.1.238498.3.579. 2.125 1939 Unknown [id number] 2.16.840.1.851340.3.579. 2.125 1939 Unknown [id number] 2..840.1.119596.3.579. 2.125 1939 Unknown [id number] 2.16.840.1.808035.3.579. 2.125 1939 Unknown [id number] 2.16.840.1.467265.3.579. 2.125 1939 Unknown [id number] 2.16.840.1.240615.3.579. 2.125 1939 Unknown [id number] 2.16.840.1.228116.3.579. 2.125 1939 Unknown [id number] 2.16.840.1.166515.3.579. 2.1259 1939 Unknown [id number] 2.16.840.1.716151.3.579. 2.1259 1939 Unknown [id number] 2.16.840.1.006245.3.579. 2.1259 1939 Unknown [id number] 2.16.840.1.123730.3.579. 2.1259 Unknown [id number] 2.16.840.1.723783.3.579. 2.531 Unknown [id number] 2.16.840.1.978540.3.579. 2.531 Unknown [id number] 2.16.840.1.357555.3.579. 2.531 Unknown [id number] 2.16.840.1.935955.3.579. 2.531 Unknown [id number] 2..840.1.144433.3.579. 2.531 Unknown [id number] 2.16.840.1.461043.3.579. 2.531 Unknown [id number] 2.16.840.1.043608.3.579. 2.531 Unknown [id number] 2.16.840.1.291108.3.579. 2.531 Unknown [id number] 2.16.840.1.597040.3.579. 2.531 Unknown [id number] 2.16.840.1.913161.3.579. 2.531 Unknown [id number] 2.16.840.1.267030.3.579. 2.531 Unknown [id number] 2.16.840.1.787342.3.579. 2.531 Unknown [id number] 2.16.840.1.005000.3.579. 2.531 Unknown [id number] 2.16.840.1.473752.3.579. 2.531 Unknown [id number] 2.16.840.1.015532.3.579. 2.531 Unknown [id number] 2.16.840.1.641218.3.579. 2.531 Unknown [id number] 2.16.840.1.758375.3.579. 2.531 Unknown [id number] 2.16.840.1.425800.3.579. 2.531 Unknown [id number] 2.16.840.1.474459.3.579. 2.531 Unknown [id number] 2.16.840.1.183706.3.579. 2.531 Unknown [id number] 2.16.840.1.351898.3.579. 2.531 Unknown [id number] 2.16.840.1.059620.3.579. 2.531 Social History Date Type Detail [facility] Start: 1940 Sex Assigned At Male [facility] Start: 04-01-2023 End: 01-18-2025 Sex Assigned At [facility] Start: 04-27-2022 End: 02-16-2024 Tobacco smoking status Ex-smoker (finding) [facility] Comment on above: former smoker quit a t age 41, 1 PPD Patient states he sm oked about 1.5 PPD, cigarettes, from about 17 y.o. to about 41 y.o. Start: 04-10-2022 Tobacco smoking status Never [facility] Comment on above: former smoker quit a t age 41, 1 PPD Patient states he sm oked about 1.5 PPD, cigarettes, from about 17 y.o. to about 41 y.o. End: 05-17-1983 History of tobacco use Current smoker [facility] End: 05-17-1983 History of tobacco use Cigarette Smoker [facility] Start: 04-01-2023 Tobacco use and exposure Smokeless tobacco non-user [facility] Start: 04-01-2023 End: 01-18-2025 History of Social function [facility] Start: 1940 Sex Assigned At Not on file [facility] History of tobacco use Passive smoker [facility] Start: 02-12-2024 End: 01-18-2025 Alcoholic beverage intake Current drinker of alcohol (finding) [facility] Start: 12-22-2022 Tobacco Comment Years smoked: 25 [facility] Start: 12-22-2022 Alcohol Comment 1 or 2 drinks/ day, monthly or less; Caffeine: 1 drink/day [facility] Start: 04-07-2024 End: 12-04-2024 Tobacco use and exposure Former smokeless tobacco user [facility] Work Phone: Start: 04-01-2024 End: 09-11-2024 Exposure to SARS-CoV-2 (event) Not sure [facility] Start: 05-11-2024 Gender identity Identifies as male gender (finding) [facility] Work Phone: Start: 05-11-2024 Sexual orientation Heterosexual (fin ding) [facility] Work Phone: Start: 06-14-2024 End: 09-26-2024 Sex Male (finding) [facility] Start: 08-20-2024 End: 11-23-2024 Tobacco smoking status NHIS Never smoked tobacco (finding) [facility] Start: 08-21-2024 SDOH Follow up SDOH Follow up [facility] Work Phone: Sexual Orientation [facility] Start: 12-04-2024 Alcohol Comment or less or week [facility] Work Phone: Medical Equipment Procedure Code Equipment Code Equipment Origin al Text Equipment Identifier Dates Insertion of central venous catheter (CVC) with subcutaneous port for chemotherapy Vascular port/catheter ([id number] [facility] Start: 07-17-2024 End: 05-11-2024 See Instructions [...] [facility] ionnaire 2 item (PHQ-2) [Reported] [facility] Work Phone: 08-21-2024 Functional status Patient at Baseline [facility] Work Phone: 03-23-2024 Functional Status N/A [facility] 10-21-2023 Functional Status N/A [facility] 09-17-2023 Functional Status N/A [facility] 05-25-2023 Functional Status N/A [facility] 03-10-2023 Functional Status N/A [facility] 02-25-2023 Functional Status N/A [facility] 01-12-2023 Functional Status N/A [facility] 09-22-2022 Functional Status N/A [facility] 05-19-2022 Functional Status N/A [facility] Mental Status Date Assessment Result Facility 08-21-2024 Cognitive function Cognitive Sta tus Patient at Baseline [facility] Work Phone: Clinical Notes 11-29-2021 to 01-18-2025 Veena Ross DO - 01/18/2025 9:45 AM EDLindy Schneider MD - 12/11/2024 1:45 PM EDT [...] see him PRN. documented in this encounter [facility] 12-26-2024 Progress note [facility] enter 12-11-2024 History of Present illness Narrative Formatting of this note might be differe nt from the original. HEAD AND NECK SURGERY FOLLOW UP [facility] Referring Provider: Dr. Ham [facility] I had the pleasure of seeing Jeremie [...] onc) and Dr Lamas (med onc) at [facility] - November 2024 post treatment PET [...] lymph nodes Procedure Note: Diagnostic Flexible Laryngoscopy (37573) Indication: patient symptoms requiring evaluation of pharyngeal/laryngeal/hypopharyngeal [...] now s/p completion of chemoradiation treatment at [facility] August 2024 - Doing well overall, scope and exam findings with improved thick mucous and edema. JUVE today on exam or imaging - Continue [employer] therapy, he will do this closer to [...] Mary Schneider MD documented in this encounter [facility] Work Phone: 12-05-2024 Note PA Electrophysiology Consult Note PA Cardiology - [facility] Reason for visit: Device at [facility] 12/05/2024 Patient underwent GEN change on 07/10/2024. [...] Dr. Shi for ?SND which is approaching [facility]. He has previously been [...] on file Intimate Partner Violence: Unknown (07/08/2023) [place] Safety & Environment Fear of Current or Ex-Partner: Not on file Emotionally Abused: Not on file Physically Abused: Not on file Sexually Abused: Not on file Physically or Sexually Abused: Not on file Depression: Not at risk (09/11/2024) Received from [facility] PHQ-2 Patient Health Questionnaire-2 Score: 0 [...] MOUTH IN THE MORNING 100 tablet 3 UWCYFNDIMD-HZDELMN-VIKPRVSE ORAL Take by mouth if needed. clopidogrel [...] 1 tablet every day by oral route. xejhjgwdtv-rggfzjymjfnpr-mnfg (Esgic) 50-325-40 mg capsule Take 1 capsule [...] mg by mouth in the morning. HYDROcodone-acetaminophen ([place]) 5-325 mg tablet Take 1 tablet by mout (more content not included)... 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 The [place] Diabetes Association: diabetes.org ??? The Association of [...] levels in y (more content not included)... 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/2024 Migraine headache ([facility]) Mixed incontinence 01/27/2024 Other specified disorders of synovium, right ankle and foot Pain management Pain of upper abdomen 04/03/2022 Paronychia of great toe bilateral Peptic ulcer 04/03/2022 Personal history of other medical treatment 04/2018 body map scanned in for biopsies and trtm Prostate cancer ([facility]) Right flank pain 04/03/2022 Sinus tarsi syndrome of right foot Sleep apnea Toe pain, right Type 2 diabetes mellitus with diabetic neuropathy (CMS/HCC) Ventricular tachycardia ([facility]/HCC) Social History Tobacco Use Smoking status: Former [...] 2005 ablation OTHER SURGICAL HISTORY 2007 sphincterotomy [place] CHOLECYSTECTOMY 02/2020 Laparoscopic Cholecystectomy - [place] IMPLANT ARTIFICIAL SPHINCTER 2017 PROSTATE 2000 TONSILLECTOMY [...] schedule early next week. documented in this [facility]05-07-2025 Radiology Diagnostic study [facility] [place] [address] [place] [address] CT Scan Report Signed Patient: Jeremie Bennett MR#: [id number] : 1940 Acct:[id number] Age/Sex: 83 / M ADM Date: 5 Loc: ER Room: Type: [facility] ER Attending Dr: Copies to: Maru [...] Gordon M.D. 09/20/2024 8:03 PM Dictation Location: [place] [address] Transcribed By: [facility] 09/20/242002 Dictated By: Rafi Gordon II, MD 09/20/241947 Signed By: 09/20/242002 [facility] Work Phone: 1(391) 461-498705-07-2025 Hospital Discharge instructions Additional Instructions Please return [...] testing/monitoring to rule out evidence of possible cancer.[facility] Work Phone: 1(451) 467-940005-01-2025 NotePatient Education Nutrition BMI for Adults Body [...] for Disease Control and Prevention: cdc.gov ??? [place] Heart Association: heart.org ??? National Heart, Lung, and Blood [place]: nhlbi.nih.gov This information is not intended to replace advice given to you by your health care provider. Make sure you discuss any questions you have with your health care provider. Document Revised: 01/21/2023 Document Reviewed: 01/14/2023 [employer] Patient Education ? 2023 [employer] 09-11-2024 History of Present illness Narrative* Mary Schneider MD - 09/11/2024 2:00 PM EDT HEAD AND NECK SURGERY FOLLOW UP [facility] Referring Provider: Dr. Ham HPI I [...] onc) and Dr Lamas (med onc) at [facility] after completion of chemoradiation treatment earlier this month. Weight down to 149 lbs (prior 170 lbs). Swallowing liquids, saw MACHINE CASTINGS PLASTERER during treatment, not recently. Had pacemaker replaced. [...] lymph nodes Procedure Note: Diagnostic Flexible Laryngoscopy (79824) Indication: patient symptoms requiring evaluation of pharyngeal/laryngeal/hypopharyngeal [...] now s/p completion of chemoradiation treatment at [facility] August 2024 - Doing well overall, scope and exam findings as expected - Recommend continued MACHINE CASTINGS PLASTERER therapy, he will do this closer to home - Discussed imaging, he has PET scheduled in November - Will need post-treatment NavDx either now or at next appointment - Discussed NCCN guidelines and ongoing surveillance - Follow up with me in 2-3 months after PET, certainly sooner if any issues Mary Schneider MD documented in this [facility] Work Phone: 1([phone]) 200-922004-24-2025 Evaluation note* Diagnosis Onset Date Resolution Status [...] Tongue cancer acute November 23, 2024 10:01am [facility] Work Phone: 1(264) 159-179804-24-2025 Evaluation note* Diagnosis Onset Date Resolution Status [...] of oropharynx acute November 23, 2024 10:01am [facility] Work Phone: 1([phone]) 948-128304-07-2025 [id number] Discharge Summary Signed Patient: Jeremie Bennett MR#: [id number] : 1940 Acct:[id number] Age/Sex: 83 / M Adm Date: 5 Loc: Room: [address] [place] [address]: Zeke Brennan MD Copies to: [...] he was [facility] with few more days of oral [...] Continuity of Care Document Health Concerns: A [facility] screening has identified you as [...] Strong:Four Ways to Beat the Frailty Risk [email or web address].[email or web address] [place].org/health/ckamxzch-uqh-luvcmqvnpo/st ad-mwoxpb-jhbu- kffb-iz-pgnl-arq-qcvcupa-jiaz Exam Physical Exam Vital Signs: Temp Pulse [...] % (Auto) 75.8, Lymph % (Auto) 9.0, Winn % (Auto) 13.6, Eos % (Auto) 1.0, Baso % (Auto) 0.6, Nucleat RBC Rel Count 0.1, Neut # (Auto) 4.7, Lymph # (Auto) 0.6 L, Winn # (Auto) 0.8, Eos # (Auto) 0.1, [...] % (Auto) 77.0, Lymph % (Auto) 10.5, Winn % (Auto) 11.3, Eos % (Auto) 0.7, Baso % (Auto) 0.5, Nucleat RBC Rel Count 0.2, Neut # (Auto) 5.7, Lymph # (Auto) 0.8 L, Winn # (Auto) 0.8, Eos # (Auto) 0.1, Baso # (Auto) 0.0, Monocyte Dist Width 23.19 H, ESR 42 H, PT 12.9, INR 1.1, Lactic Acid 0.8, C-Reactive Prot, Quant Cancelled 08/20/24 12:20: PHA Creatinine Clear 58.71, Sodium 136, Potassium 3.7, Chloride 104, Carbon Yoqqrsv39.4, Anion Gap 10.3, BUN 16, Creatinine 0.85, Est GFR (CKD- EPI) > 60.0, Glucose 106 H, Calcium 8.4 L, Total Bilirubin 0.6, AST 18, ALT 17, Alkaline Phosphatase 66, C-Reactive Prot, Quant 3.3 H, Total Protein 5.9 L, Albumin 3.4 L, Globulin 2.5, Albumin/Globulin Ratio 1.4 Documented By: Zeke Brennan MD 08/21/24 1407 Signed By: 08/21/24 1414 [facility]04-07-2025 [place] [address] Hospitalist Progress Note Signed Patient: Jeremie Bennett MR#: [id number] : 1940 Acct:[id number] Age/Sex: 83 / M Adm Date: 5 Loc: Room: [address] [place] [address] Type: ADM IN Attending Dr: Zeke Brennan [...] care and confirmed it with the re sident/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 This patient presented to the emergency department [...] Dose Route Start Last Admin Trade Name Ruchi PRN Reason Stop Dose Admin Albuterol 1 [...] spray 08/21/24 09:00 08/21/24 09:02 Fluticasone Propionate Milton 120 Milton/16 Gm Bottle INTRANASAL 08/21/25 08:59 2 spray [...] 1135 Signed By: 08/21/24 1414 08/21/24 1152 [facility]04-07-2025 Consult note Author Yash Thomas [facility] Note Date/Time August 21, 2024 11:1 0am [facility] [address] [place] [address] Infect. Disease Consult Note Signed Patient: Jeremie Bennett MR#: [id number] : 1940 Acct:[id number] Age/Sex: 83 / M Adm Date: 5 Loc: Room: [address] [place] [address] Type: ADM IN Attending Dr: Zeke Brennan [...] at 10 PM CC: Zeke Brennan MD [facility] Medical History Pacemaker Prostate cancer surgery Neuropathy [...] (end stage renal disease) [facility] Problem: Diagnosed with Cancer Lymphoma [...] 81 Mg Tab.Chew) 81 mg PO DAILY [facility] Stop: 08/21/25 08:59 Last Admin: 08/21/24 09:01 Dose: 81 mg Atorvastatin Calcium (Atorvastatin 20 Mg Tablet) 20 mg PO QPM [facility] Stop: 08/21/25 20:59 Clopidogrel Bisulfate (Clopidogrel Bisulfate 75 Mg Tablet) 75 mg PO DAILY [facility] Stop: 08/21/25 08:59 Last Admin: 08/21/24 09:00 Dose: 75 mg Dorzolamide HCl (Dorzolamide 2% Op Soln 200 Drops/10 Ml Bottle) 1 drops EYE-BOTH BID [facility] Stop: 08/21/25 08:59 Last Admin: 08/21/24 09:04 Dose: 1 drops Famotidine (Famotidine 20 Mg Tablet) 20 mg PO QPM [facility] Stop: 08/21/25 20:59 Fentanyl (Fentanyl Patch 12 Mcg/Hour Patch.Td72) 12 mcg TRANSDERML Q72HR [facility]; Protocol Fluticasone Propionate (Fluticasone Propionate Milton 120 Milton/16 Gm Bottle) 2 spray INTRANASAL QAM [facility] Stop: 08/21/25 08:59 Last Admin: 08/21/24 09:02 Dose: 2 spray Ceftriaxone Sodium (Rocephin) 1 gm in 50 mls @ 100 mls/hr IV QHS [facility] Isosorbide Mononitrate (Isosorbide Mononitrate 24hr Er 30 Mg Tab.Er.24h) 30 mg PO QAM [facility] Stop: 08/21/25 08:59 Last Admin: 08/21/24 09:00 Dose: 30 mg Latanoprost (Latanoprost 0.005% Op Soln 50 Drops/2.5 Ml Bottle) 1 drops EYE-BOTH QPM [facility] Stop: 08/21/25 20:59 Lidocaine/Prilocaine (Lidocaine-Prilocaine Cr 2.5-2.5% 5 Gm Tube) 1 applic TOPICAL ONCE PRN PRN Reason: pain Stop: 08/20/25 21:58 Metformin HCl (Metformin 500 Mg Tablet) 500 mg PO DAILY@0800 [facility] Stop: 08/21/25 07:59 Last Admin: 08/21/24 09:00 Dose: 500 mg Multi-Ingredient Mouthwash/Gargle (Magic Mouthwash With Lidocaine) 10 ml PO QIDPRN PRN Reason: mucositis Stop: 08/20/25 22:46 Nystatin (Nystatin Susp 500,000 Unit/5 Ml Udc) 500,000 unit PO QID [facility] Stop: 08/21/25 08:59 Last Admin: 08/21/24 09:01 Dose: 500,000 unit Olanzapine (Olanzapine 2.5 Mg Tablet) 2.5 mg PO BID [facility] Stop: 08/21/25 08:59 Last Admin: 08/21/24 09:00 Dose: 2.5 mg Ondansetron HCl (Ondansetron Odt 4 Mg Tab.Rapdis) 8 mg PO Q8HR PRN PRN Reason: nausea and vomiting Stop: 08/20/25 22:49 Oxycodone HCl (Oxycodone Ir 5 Mg Tablet) 10 mg PO Q4HR PRN PRN Reason: pain Last Admin: 08/21/24 09:01 Dose: 10 mg Pantoprazole Sodium (Pantoprazole 40 Mg Tablet.Dr) 40 mg PO BID [facility] Stop: 08/21/25 08:59 Last Admin: 08/21/24 09:00 Dose: 40 mg Rivaroxaban (Rivaroxaban 10 Mg Tablet) 10 mg PO QHS [facility] Stop: 08/21/25 21:59 Sennosides (Sennosides 8.6 [...] 80 Mg Tablet) 40 mg PO BID [facility] Stop: 08/21/25 08:59 Last Admin: 08/21/24 09:01 Dose: 40 mg Tizanidine HCl (Tizanidine 4 Mg Tablet) 4 mg PO QPM [facility] Stop: 08/21/25 20:59 Zonisamide (Zonisamide 25 Mg Capsule) 25 mg PO BID [facility] Stop: 08/21/25 08:59 Last Admin: 08/21/24 [...] signed by MD Yash Thomas> 08/21/24 1110 [facility] Work Phone: 1(554) 805-914504-07-2025 [place] [id number] Infect. Disease Consult Note Signed Patient: Jeremie Bennett MR#: [id number] : 1940 Acct:[id number] Age/Sex: 83 / M Adm Date: 5 Loc: Room: [address] [place] [address] Type: ADM IN Attending Dr: Zeke Brennan [...] at 10 PM CC: Zeke Brennan MD [facility] Medical History Pacemaker Prostate cancer surgery Neuropathy [...] [facility] Problem: Diagnosed with Stroke Hypertension Emphysema lung ESRD (end stage renal disease) [facility]: Diagnosed with Cancer Lymphoma Social [...] 81 Mg Tab.Chew) 81 mg PO DAILY [facility] Stop: 08/21/25 08:59 Last Admin: 08/21/24 09:01 Dose: 81 mg Atorvastatin Calcium (Atorvastatin 20 Mg Tablet) 20 mg PO QPM [facility] Stop: 08/21/25 20:59 Clopidogrel Bisulfate (Clopidogrel Bisulfate 75 Mg Tablet) 75 mg PO DAILY [facility] Stop: 08/21/25 08:59 Last Admin: 08/21/24 09:00 Dose: 75 mg Dorzolamide HCl (Dorzolamide 2% Op Soln 200 Drops/10 Ml Bottle) 1 drops EYE-BOTH BID [facility] Stop: 08/21/25 08:59 Last Admin: 08/21/24 09:04 Dose: 1 drops Famotidine (Famotidine 20 Mg Tablet) 20 mg PO QPM [facility] Stop: 08/21/25 20:59 Fentanyl (Fentanyl Patch 12 Mcg/Hour Patch.Td72) 12 mcg TRANSDERML Q72HR [facility]; Protocol Fluticasone Propionate (Fluticasone Propionate Milton 120 Milton/16 Gm Bottle) 2 [facility] Stop: 08/21/25 08:59 Last Admin: 08/21/24 09:02 Dose: 2 spray Ceftriaxone Sodium (Rocephin) 1 gm in 50 mls @ 100 mls/hr IV QHS [facility] Isosorbide Mononitrate (Isosorbide Mononitrate 24hr Er 30 Mg Tab.Er.24h) 30 mg PO QAM [facility] Stop: 08/21/25 08:59 Last Admin: 08/21/24 09:00 Dose: 30 mg Latanoprost (Latanoprost 0.005% Op Soln 50 Drops/2.5 Ml Bottle) 1 drops EYE-BOTH QPM [facility] Stop: 08/21/25 20:59 Lidocaine/Prilocaine (Lidocaine-Prilocaine Cr 2.5-2.5% 5 Gm Tube) 1 applic TOPICAL ONCE PRN PRN Reason: pain Stop: 08/20/25 21:58 Metformin HCl (Metformin 500 Mg Tablet) 500 mg PO DAILY@0800 [facility] Stop: 08/21/25 07:59 Last Admin: 08/21/24 09:00 Dose: 500 mg Multi-Ingredient Mouthwash/Gargle (Magic Mouthwash With Lidocaine) 10 ml PO QIDPRN PRN Reason: mucositis Stop: 08/20/25 22:46 Nystatin (Nystatin Susp 500,000 Unit/5 Ml Udc) 500,000 unit PO QID [facility] Stop: 08/21/25 08:59 Last Admin: 08/21/24 09:01 Dose: 500,000 unit Olanzapine (Olanzapine 2.5 Mg Tablet) 2.5 mg PO BID [facility] Stop: 08/21/25 08:59 Last Admin: 08/21/24 09:00 Dose: 2.5 mg Ondansetron HCl (Ondansetron Odt 4 Mg Tab.Rapdis) 8 mg PO Q8HR PRN PRN Reason: nausea and vomiting Stop: 08/20/25 22:49 Oxycodone HCl (Oxycodone Ir 5 Mg Tablet) 10 mg PO Q4HR PRN PRN Reason: pain Last Admin: 08/21/24 09:01 Dose: 10 mg Pantoprazole Sodium (Pantoprazole 40 Mg Tablet.Dr) 40 mg PO BID [facility] Stop: 08/21/25 08:59 Last Admin: 08/21/24 09:00 Dose: 40 mg Rivaroxaban (Rivaroxaban 10 Mg Tablet) 10 mg PO QHS [facility] Stop: 08/21/25 21:59 Sennosides (Sennosides 8.6 Mg Tablet) 8.6 mg PO BID PRN PRN Reason: constipation Stop: 08/20/25 21:58 Last Admin: 08/21/24 09:00 Dose: 8.6 mg Silver Sulfadiazine (Silver Sulfadiazine 1% Cream 400 Gm Jar) 1 applic TOPICAL BID [facility] Stop: 08/21/25 08:59 Last Admin: 08/21/24 09:07 Dose: 1 applic Sodium Chloride (Sodium Chloride 0.9 % 10 Ml Syringe) 0 ml IV-PUSH PRN PRN PRN Reason: Flush Stop: 08/20/25 16:56 Last Admin: 08/20/24 17:20 Dose: 10 ml Sodium Chloride (Sodium Chloride 0.9 % 10 Ml Syringe) 10 ml IV-PUSH Q8H [facility] Stop: 08/20/25 19:44 Last Admin: 08/21/24 03:06 Dose: Not Given Sotalol HCl (Sotalol 80 Mg Tablet) 40 mg PO BID [facility] Stop: 08/21/25 08:59 Last Admin: 08/21/24 09:01 Dose: 40 mg Tizanidine HCl (Tizanidine 4 Mg Tablet) 4 mg PO QPM [facility] Stop: 08/21/25 20:59 Zonisamide (Zonisamide 25 Mg Capsule) 25 mg PO BID [facility] Stop: 08/21/25 08:59 Last Admin: 08/21/24 [...] MD 08/21/24 1053 Signed By: 08/21/24 1110 [facility]04-07-2025 Radiology Diagnostic study note [facility] Main [place] [address] [place] [address] Scan Report Signed Patient: Jeremie Bennett MR#: [id number] : 1940 Acct:[id number] Age/Sex: 83 / M ADM Date: 5 Loc: Room: [address] [place] [address] Type: ADM IN Attending Dr: Jaiden Nance [...] Christian Melton M.D.08/21/2024 5:58 AM Dictation Location: [place] [address] Transcribed By: [facility] 08/21/24 0558 Dictated By: Christian Melton DO 08/21/24 0555 Signed By: 08/21/24 0558 [facility]03-26-2025 Progress note Author Debora Wild [facility] Note Date/Time August 09, 2024 10: 25am [facility] [address] [place], [place] [id number] Palliative Medicine Encounter Patient: Jeremie Bennett MR#: [id number] : 1940 Acct:[id number] Age/Sex: 83 / M Copies to: RAYSHAWN [...] tablet 81 mg PO DAILY 06/14/24 08/09/24 [id number]-ctkuhpgsbizqk-kzehfbqz 250 1 tab PO Q4-6H PRN pain [...] Alcohol Substance Abuse Comment: rare alcohol use [place] Symptom Assessment Scale Pain: throat pain controlled [...] recorder, note dictated by Debora Wild APRN, CENTRIFUGE SEPARATOR TENDER-C ACHPN Dictated By: Debora Wild APRN DD/ 0945 Signed By: <Electronically signed by RAYSHAWN Wild> 08/09/24 1026 [facility] Work Phone: 1(262) 152-106203-26-2025 [place] [address] Palliative Medicine Encounter Patient: Jeremie Bennett MR#: [id number] : 1940 Acct:[id number] Age/Sex: 83 / M Copies to: RAYSHAWN [...] tablet 81 mg PO DAILY 06/14/24 08/09/24 smzuewq-sldyqspdliwlj-eyxfmrgh 250 1 tab PO Q4-6H PRN pain [...] tabs 08/09/24 Is patient having pain?: Yes [facility] Medical History (Updated 08/09/24 @ 09:38 by [...] Alcohol Substance Abuse Comment: rare alcohol use [place] Symptom Assessment Scale Pain: throat pain controlled [...] recorder, note dictated by Debora Wild APRN, CENTRIFUGE SEPARATOR TENDER-C ACHPN Dictated By: Debora Wild APRN DD/ 0945 Signed By: 08/09/[address] [place], [place] 1142403-12-2025 Progress note Author Maru Ma [facility] Note Date/Time July 26, 2024 12: 02pm [facility] [address] [place] [address] Palliative Medicine Encounter Patient: Jeremie Bennett MR#: [id number] : 1940 Acct:[id number] Age/Sex: 83 / M Copies to: DO [...] tablet 81 mg PO DAILY 06/14/24 07/26/24 adpzezi-dviwpevvrpovu-suyogjla 250 1 tab PO Q4-6H PRN pain [...] QAM 07/20/24 07/26/24 tablet,extended release 24 hr [facility] Medical History (Updated 07/24/24 @ 13:52 by [...] Alcohol Substance Abuse Comment: rare alcohol use [place] Symptom Assessment Scale See above Exam Exam [...] <Electronically signed by FELLOW Mario El> 07/26/24 3026 [facility] Work Phone: 1(231) 118-728503-12-2025 [place] [address] Palliative Medicine Encounter Patient: Jeremie Bennett MR#: [id number] : 1940 Acct:[id number] Age/Sex: 83 / M Copies to: DO [...] tablet 81 mg PO DAILY 06/14/24 07/26/24 [id number]-puqvcmcicclpr-hjwncgrg 250 1 tab PO Q4-6H PRN pain [...] QAM 07/20/24 07/26/24 tablet,extended release 24 hr [facility] Medical History (Updated 07/24/24 @ 13:52 by [...] [facility] Problem: Diagnosed with Stroke Hypertension Emphysema lung ESRD (end stage renal disease) Sister [facility] Problem: Diagnosed with Cancer Lymphoma Social History Smoking Status: Former smoker Tobacco Type: cigarettes Substance Use Type: Alcohol Substance Abuse Comment: rare alcohol use [place] Symptom Assessment Scale See above Exam Exam [...] 0833 Signed By: 07/26/24 1202 07/26/24 0944 [facility]03-12-2025 Evaluation note* Diagnosis Onset Date Resolution Status Admit Date 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, 2024 8:13am Cancer associated pain acute [facility] 2024 8:22am Nausea acute July 26 8:22am 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, 2024 8:22am [facility] Work Phone: 1([phone]) 408-872703-12-2025 Evaluation note* Diagnosis Onset Date Resolution Status Admit Date 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, 2024 8:13am Cancer associated pain acute [facility] 2024 8:22am Nausea acute July 26 8:22am 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, 2024 8:22am Cancer associated pain acute [facility] 2024 7:29am Constipation acute August 02, 2024 7:29am Squamous cell carcinoma of oropharynx acute August 02, 2024 7:29am Thrush, oral acute August 02, 2024 7:29am [facility] Work Phone: [phone] 709-621503-12-2025 Evaluation note* Diagnosis Onset Date Resolution Status Admit Date 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, 2024 8:13am Cancer associated pain acute [facility] 2024 8:22am Nausea acute July 26 8:22am 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, 2024 8:22am Cancer associated pain acute [facility] 2024 7:29am Constipation acute August 02, 2024 7:29am Squamous cell carcinoma of oropharynx acute August 02, 2024 7:29am Thrush, oral acute August 02, 2024 7:29am Cancer associated pain acute [facility] 2024 7:51am Constipation acute August 09, 2024 7:51am Nausea acute August 09 7:51am Squamous cell carcinoma of oropharynx acute August 09, 2024 7:51am Squamous cell carcinoma of oropharynx acute August 09, 2024 9:23am [facility] Work Phone: 1([phone]) 102-187603-12-2025 Evaluation note* Diagnosis Onset Date Resolution Status Admit Date 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, 2024 8:13am Cancer associated pain acute [facility] 2024 8:22am Nausea acute July 26 8:22am 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, 2024 8:22am Cancer associated pain acute [facility] 2024 7:29am Constipation acute August 02, 2024 7:29am Squamous cell carcinoma of oropharynx acute August 02, 2024 7:29am Thrush, oral acute August 02, 2024 7:29am Cancer associated pain acute [facility] 2024 7:51am Constipation acute August 09, 2024 7:51am Nausea acute August 09 7:51am Squamous cell carcinoma of oropharynx acute August 09, 2024 7:51am Squamous cell carcinoma of oropharynx acute August 09, 2024 9:23am Cancer associated pain acute 2024 7:59am Constipation acute August 16, 2 025 7:59am Nausea acute August 16 7:59am Squamous cell carcinoma of oropharynx acute August 16, 2024 7:59am [facility] Work Phone: 1([phone]) 855-493203-12-2025 Evaluation note* Diagnosis Onset Date Resolution Status Admit Date 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, 2024 8:13am Cancer associated pain acute [facility] 2024 8:22am Nausea acute July 26 8:22am 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, 2024 8:22am Cancer associated pain acute [facility] 2024 7:29am Constipation acute August 02, 2024 7:29am Squamous cell carcinoma of oropharynx acute August 02, 2024 7:29am Thrush, oral acute August 02, 2024 7:29am Cancer associated pain acute [facility] 2024 7:51am Constipation acute August [...] 202024 7:35pm Pneumonia acute August 20 7:35pm [facility] Work Phone: 1([phone] 126-902003-12-2025 Evaluation note* Diagnosis Onset Date Resolution Status Admit Date 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, 2024 8:13am Cancer associated pain acute [facility] 2024 8:22am Nausea acute July 26 8:22am 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, 2024 8:22am Cancer associated pain acute [facility] 2024 7:29am Constipation acute August 02, 2024 7:29am Squamous cell carcinoma of oropharynx acute August 02, 2024 7:29am Thrush, oral acute August 02, 2024 7:29am Cancer associated pain acute [facility] 2024 7:51am Constipation acute August [...] of oropharynx acute August 20, 2024 7:35pm [facility] Work Phone: 1([phone] 446-890103-12-2025 Evaluation note* Diagnosis Onset Date Resolution Status Admit Date 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, 2024 8:13am Cancer associated pain acute [facility] 2024 8:22am Nausea acute July 26 8:22am 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, 2024 8:22am Cancer associated pain acute [facility] 2024 7:29am Constipation acute August 02, 2024 7:29am Squamous cell carcinoma of oropharynx acute August 02, 2024 7:29am Thrush, oral acute August 02, 2024 7:29am Cancer associated pain acute [facility] 2024 7:51am Constipation acute August 09, 2024 7:51am Nausea acute August 09 7:51am Squamous cell carcinoma of oropharynx acute August 09, 2024 7:51am Squamous cell carcinoma of oropharynx acute August 09, 2024 9:23am Cancer associated pain acute Ap 2024 7:59am Constipation acute August 16 7:59am [...] of oropharynx acute September 11, 2024 9:55am [facility] Work Phone: 1([phone]) 725-742103-12-2025 Evaluation note* Diagnosis Onset Date Resolution Status Admit Date 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, 2024 8:13am Cancer associated pain acute [facility] 2024 8:22am Nausea acute July 26 8:22am 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, 2024 8:22am Cancer associated pain acute [facility] 2024 7:29am Constipation acute August 02, 2024 7:29am Squamous cell carcinoma of oropharynx acute August 02, 2024 7:29am Thrush, oral acute August 02, 2024 7:29am Cancer associated pain acute [facility] 2024 7:51am Constipation acute August [...] 9:55am Cancer associated pain acute Ma y , 2025 2:36pm Squamous cell carcinoma of oropharynx acute September 26, 2024 2 :36pm Thrush, oral acute September 26 2:36pm [facility] Work Phone: 1([phone]) 839-244303-05-2025 NoteUTP Cardiovascular Medicine [facility] Patient here for follow-up after his generator [...] in 3 months. Boy Buitrago APRN-[facility]-2025 [facility] [place] [address] Cancer Center Note Signed Patient: Jeremie Bennett MR#: [id number] : 1940 Acct:[id number] Age/Sex: 83 / M Type: REG AMB [...] by IHC was equivocal. As per the [facility] tumor board recommendation is either [...] his week 1 of cisplatin. Labs at [facility] on 07/03/24 revealed hgb 13.3, cr is 1.0. He is having his labs here today.He had his pacemaker placed on 07/10/24 in [place]. 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 [...] positive squamous cell carcinoma. Tumor board at [facility] in [place] [facility] and the recommended concurrent chemoradiation. Past medical [...] with concurrent chemoradiation. Since he lives in [place] he was referred by Dr. Mary Schneider from ENT at [facility] to our medical oncology and radiation oncology at [facility]. He is referred to [...] his week 1 of cisplatin. Labs at [facility] on 07/03/24 revealed hgb 13.3, cr is 1.0. He is having his labs here today.He had his pacemaker placed on 07/10/24 in [place]. Rest of 14 point systems were reviewed [...] PO QAM aspirin 81 mg PO DAILY mpuodlr-yskqwppoejhgd-ljdlmqof 250-250-65 mg (Excedrin Migraine) 1 tab PO [...] other concerns voiced at time of intake. [facility] Medical History Medical History (Updated 07/06/24 @ [...] (end stage renal disease) Sister Cancer [facility] Problem: Diagnosed with Cancer Lymphoma Social [...] MD DD/ [id number] Signed By: 07/12/24 0920 [facility]02-24-2025 NotePACEMAKER GENERATOR REPLACEMENT PROCEDURE NOTE [...] x 2 weeks Stacey Patel MD [facility]25 Progress note Author Debora Wild [facility] Note Date/Time July 06, 2024 11:40am [facility] [address] [place] [address] Palliative Medicine Encounter Patient: Jeremie Bennett MR#: [id number] : 1940 Acct:[id number] Age/Sex: 83 / M Copies to: RAYSHAWN [...] tablet 81 mg PO DAILY 06/14/24 06/22/24 woetccq-oygaljzvclsek-msbtouts 250 1 tab PO Q4-6H PRN pain [...] tabs fluticasone propionate 50 2 spray intranasal QA 06/22/24 06/22/24 mcg/actuation nasal spray,suspension psyllium husk 0.4 gram capsule 0.4 g PO DAILY 06/22/24 06/22/24 (Fiber (psyllium husk)) Is patient having pain?: No [facility] Medical History (Updated 07/06/24 @ 09:33 by [...] Alcohol Substance Abuse Comment: rare alcohol use [place] Symptom Assessment Scale Pain: intermittent scratchy throat/ [...] patient 9:08 to 9:38 46 mins #about Jeremei: Kaya moved her from [place] 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 Exam Exam General - A&O, [...] recorder, note dictated by Debora Wild APRN, CENTRIFUGE SEPARATOR TENDER-C ACHPN Dictated By: Debora Wild APRN DD/ [id number] Signed By: <Electronically signed by RAYSHAWN Wild> 07/06/24 [facility]0 [facility] Work Phone: 1(576) 125-825802-20-2025 [place] [address] Palliative Medicine Encounter Patient: Jeremie Bennett MR#: [id number] : 1940 Acct:[id number] Age/Sex: 83 / M Copies to: RAYSHAWN [...] tablet 81 mg PO DAILY 06/14/24 06/22/24 hcthwnh-sixxmciausjny-ecjhanhk 250 1 tab PO Q4-6H PRN pain [...] tabs fluticasone propionate 50 2 spray intranasal QA 06/22/24 06/22/24 mcg/actuation nasal spray,suspension psyllium husk 0.4 gram capsule 0.4 g PO DAILY 06/22/24 06/22/24 (Fiber (psyllium husk)) Is patient having pain?: No [facility] Medical History (Updated 07/06/24 @ 09:33 by [...] Alcohol Substance Abuse Comment: rare alcohol use [place] Symptom Assessment Scale Pain: intermittent scratchy throat/ [...] #about Jeremie: Kaya moved her from [place] collects [place] Exam Exam General - A&O, accompanied by [...] recorder, note dictated by Debora Wild APRN, CENTRIFUGE SEPARATOR TENDER-C ACHPN Dictated By: Debora Wild APRN DD/ [id number] Signed By: 07/06/24 1140 [facility]02-18-2025 NoteNurse Consultation Note Reason for [...] PRN, 1 refills fluticasone Nasal 0.05 mg/inh [place], See Instructions furosemide 20 mg Tab, 20 [...] influenza virus vaccine, inactivated 04/12/2023 Recorded SARSCoV2 mRNA(pqhyovoum-gpyi-bqlvbh) vac 11/25/2021 Recorded SARS-CoV-2 (COVID-19) mRNA BNT-162b2 vax 03/06/2021 Recorded 2022-11-03: TPV80 influenza virus vaccine, inactivated 02/18/2021 Recorded SARS-CoV-2 (COVID-19) mRNA BNT-162b2 vax 06/27/2020 Recorded SARS-CoV-2 (COVID-19) Ad26 vaccine 06/27/2020 Recorded SARS-CoV-2 (COVID-19) mRNA BNT-162b2 vax 06/06/2020 Recorded SARS-CoV-2 (COVID-19) Ad26 vaccine 06/06/2020 Recorded influenza virus vaccine, inactivated 02/14/2020 Recorded influenza, unspecified formulation 01/22/2018 Recorded pneumococcal 13-valent vaccine 01/30/2014 [facility] NoteNurse Consultation Note Reason for Visit Pt presents today for lab draw. Outside orders from Dr Yaser Al-Marrawl Assessment/Plan Squamous cell carcinoma of oropharynx (C10.9: [...] PRN, 1 refills fluticasone Nasal 0.05 mg/inh [place], See Instructions furosemide 20 mg Tab, 20 [...] influenza virus vaccine, inactivated 04/12/2023 Recorded SARSCoV2 mRNA(hgbbhgdxj-vgeu-zbshfe) vac 11/25/2021 Recorded SARS-CoV-2 (COVID-19) mRNA BNT-162b2 vax 03/06/2021 Recorded 2022-11-03: TPV80 influenza virus vaccine, inactivated 02/18/2021 Recorded SARS-CoV-2 (COVID-19) mRNA BNT-162b2 vax 06/27/2020 Recorded SARS-CoV-2 (COVID-19) Ad26 vaccine 06/27/2020 Recorded SARS-CoV-2 (COVID-19) mRNA BNT-162b2 vax 06/06/2020 Recorded SARS-CoV-2 (COVID-19) Ad26 vaccine 06/06/2020 Recorded influenza virus vaccine, inactivated 02/14/2020 Recorded influenza, unspecified formulation 01/22/2018 Recorded pneumococcal 13-valent vaccine 01/30/2014 [facility] History of Present illness Narrative* LINWOOD Morgan - 06/23/2024 4:00 PM EST History: Patient was referred for an audiological evaluation. A baseline hearing exam was recommended prior to chemo treatment. Patient sees an ENT at [facility]. Patient is aware of hearing loss, wearing [...] function Impressions: Results to [facility]ustin [facility] per patient. documented in this encounterLee's Summit [id number] History of Present illness Narrative* Matteo Bell MD - 06/20/2024 3:15 PM EST Images from the original note were not included. Jeremie Bennett 1940 Jeremie Bennett is a 83 y.o. male presents with chief complaint of Consult (Port - Ref Dr LAMAS Tonguecancer/Having pacemaker generator change on 07-10-24 / [place] cardiology Dr Patel.) HPI: Mr. Bennett is [...] 5 mg, Daily aspirin 81 mg, Daily moypedeiyx-uktrgxobqmofz-pqtlmyeo 50-325-40 MG tablet 1 tablet, Every 4 [...] 2002 INSERT / REPLACE / REMOVE PACEMAKER 2014 pacemaker insertion OTHER SURGICAL HISTORY 2005 ablation OTHER SURGICAL HISTORY 2007 sphincterotomy [place] CHOLECYSTECTOMY 02/2020 Laparoscopic Cholecystectomy - [place] IMPLANT ARTIFICIAL SPHINCTER 2017 PROSTATE 2000 TONSILLECTOMY [...] placed on the right. documented in this encounterLee's Summit [id number] Progress note Author Talib [facility] Note Date/Time June 14, 2024 1 1:06am [facility] [place] [address] Cancer Center Note Signed Patient: Jeremie Bennett MR#: [id number] : 1940 Acct:[id number] Age/Sex: 83 / M Type: REG AMB [...] by IHC was equivocal. 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 [...] positive squamous cell carcinoma. Tumor board at [facility] in [place] and the recommended concurrent chemoradiation. Past medical [...] with concurrent chemoradiation. Since he lives in [place] he was referred by Dr. Mary Schneider from ENT at [facility] to our medical oncology and radiation oncology at [facility]. He is referred to [...] PO DAILY aspirin 81 mg PO DAILY myucvqc-qbconzpszbnju-mwnrgdtk 250-250-65 mg (Excedrin Migraine) 1 tab PO [...] to have [facility] Medical History Medical History (Updated 06/14/24 @ [...] signed by Talib Faustin MD> 06/14/24 1106 [facility] Work Phone: [phone]) 483-635801-29-2025 Evaluation note* Diagnosis Onset Date Resolution Status Admit Date Squamous cell carcinoma of oropharynx acute June 14 9:25am Tongue cancer acute May 9:25am Squamous cell carcinoma of oropharynx acute June 14 10:28am [facility] Work Phone: 1([phone]) 269-617501-29-2025 Evaluation note* Diagnosis Onset Date Resolution Status Admit Date Squamous cell carcinoma of oropharynx acute June 14 9:25am Tongue cancer acute May 9:25am Squamous cell carcinoma of oropharynx acute June 14 10:28am Encounter for palliative care acute July 06, 2024 8:00am 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 06, 8:00am [facility] Work Phone: 1([phone]) 839-729401-29-2025 Evaluation note* Diagnosis Onset Date Resolution Status Admit Date Squamous cell carcinoma of oropharynx acute June 14 9:25am Tongue cancer acute May 9:25am Squamous cell carcinoma of oropharynx acute June 14 10:28am Encounter for palliative care acute July 06, 2024 8:00am 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 06 8:00am Cancer associated pain acute Fe bruary 2024 7:36am Nausea acute July 12, 2024 7:36am 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 12 7:36am 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 12 8:29am Tongue cancer acute July 122024 8:29am [facility] Work Phone: 1([phone]) 963-770501-29-2025 [facility] [place] [address] Cancer Center Note Signed Patient: Jeremie Bennett MR#: [id number] : 1940 Acct:[id number] Age/Sex: 83 / M Type: REG AMB [...] by IHC was equivocal. 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 [...] positive squamous cell carcinoma. Tumor board at [facility] in [place] and the recommended concurrent chemoradiation. Past medical [...] with concurrent chemoradiation. Since he lives in [place] he was referred by Dr. Mary Schneider from ENT at [facility] to our medical oncology and radiation oncology at [facility]. He is referred to [...] PO DAILY aspirin 81 mg PO DAILY flidrig-owypziahcfolw-iistkrgv 250-250-65 mg (Excedrin Migraine) 1 tab PO [...] to have pace maker replaced [facility] Medical History Medical History (Updated 06/14/24 @ [...] MD DD/ 0953 Signed By: 06/14/24 1106 [facility]01-20-2025 Hospital Discharge instructions* Discharge Instructions* [...] questions related to your procedure: Please call [phone] between the hours of 7:00am-5:00pm Wednesday through Wednesday. Please call [phone] after 5:00pm and on weekends and holidays. In the event of an emergency call 911 or go to your nearest emergency room. documented in this [facility] Work Phone: 1(845) 722-452201-20-2025 Miscellaneous Notes* Post-Procedure Note - Juan Albright [...] PACS Procedure performed by: Juan Albright MD After School Driver(s): Dr. Gaby Perez MD Estimated Blood Loss [...] Albright MD, PGY-6 Interventional Radiology IR pager: [phone] NON-Urgent site damage prevention technician weekends and after hours weekdays (5pm - 5am) IR pager: [phone] Urgent & emergent site damage prevention technician weekends and after hours weekdays (5pm-7am) IR pager: [phone] * Pre-Procedure Note - Juan Albright MD [...] by mouth once daily., Disp: , Rfl: fiymaueaty-lztdupixoxwqc-kaec 50-325-40 mg tablet, Take 1 tablet by [...] been discussed with the patient and/or their financial sales representative. All questions answered and they agree to proceed. Juan Albright MD, PGY-6 Vascular & Interventional Radiology IR pager: [phone] NON-Urgent site damage prevention technician weekends and after hours weekdays (5pm - 5am) IR pager: [phone] Urgent & emergent site damage prevention technician weekends and after hours weekdays (5pm-7am) IR pager: [phone] documented in this [facility] Work Phone: 1(687) 831-649701-20-2025 Note* Post-Procedure Note - Juan Albright MD [...] PACS Procedure performed by: Juan Albright MD After School Driver(s): Dr. Gaby Perez MD Estimated Blood Loss [...] Albright MD, PGY-6 Interventional Radiology IR pager: [phone] NON-Urgent site damage prevention technician weekends and after hours weekdays (5pm - 5am) IR pager: [phone] Urgent & emergent site damage prevention technician weekends and after hours weekdays (5pm-7am) IR pager: [phone] [facility] Work Phone: 1(364) 666-226801-20-2025 Note* Pre-Procedure Note - Juan Albright MD [...] by mouth once daily., Disp: , Rfl: mzyivnbhcy-pftoqstoxzjqf-yjxe 50-325-40 mg tablet, Take 1 tablet by [...] been discussed with the patient and/or their financial sales representative. All questions answered and they agree to proceed. Juan Albright MD, PGY-6 Vascular & Interventional Radiology IR pager: [phone] NON-Urgent site damage prevention technician weekends and after hours weekdays (5pm - 5am) IR pager: [phone] Urgent & emergent site damage prevention technician weekends and after hours weekdays (5pm-7am) IR pager: [phone] [facility] Work Phone: 1(171) 950-293901-14-2025 History of Present illness Narrative* Mary Schneider MD - 05/30/2024 11:45 AM EST HEAD AND NECK SURGERY FOLLOW UP [facility] Referring Provider: Dr. Ham HPI I [...] lymph node Procedure Note: Diagnostic Flexible Laryngoscopy (41993) Indication: patient symptoms requiring evaluation of pharyngeal/laryngeal/hypopharyngeal [...] proceed with concurrent chemoradiation. [place], referrals to med onc and rad onc placed today to be setup locally at [facility]. I have also reached out to Dr Gray - He will need iris dx testing done prior to starting treatment - I will follow up the biopsy and call him with results - I will see him after treatment for cancer surveillance Mary Schneider MD 24 modifier used due to extensive discussion and coordination of cancer treatment documented in this [facility] Work Phone: 1(985) 538-439512-26-2024 Hospital Discharge instructions* Discharge Instructions* Jessica Carreon [...] to your nearest ED. 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] Procedures Direct Laryngoscopy 49433 - [place] LARYNGOSCOPY W/WO TRACHEOSCOPY DX EXCEPT Bronchoscopy 58081 - [place] [facility] INCL FLUOR GDNCE DX W/CELL WASHG SPX Esophagoscopy 46056 - [place] ESOPHAGOSCOPY FLEXIBLE TRANSORAL DIAGNOSTIC Surgeons Panel 1: * Mary Schneider - Primary Panel 2: * Mary Schneider - Primary Resident/Fellow/Other After School Driver: Surgeons and Role: Panel 1: * Riana Vela PA-C - Resident - Assisting Staff: [place] Examiner: Jameel Camargo Person: Simon Camargo Person: Reggie Anesthesia Staff: Anesthesiologist: Gabo Munoz MD Lapidary Apprentice: Candice Aceves MD; Delvis Santana MD Procedure [...] scrubbed for the entire procedure. 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] Procedures Direct Laryngoscopy 21492 - [place] LARYNGOSCOPY W/WO TRACHEOSCOPY DX EXCEPT Bronchoscopy 57356 - FL [facility] INCL FLUOR GDNCE DX W/CELL WASHG SPX Esophagoscopy 12062 - [place] ESOPHAGOSCOPY FLEXIBLE TRANSORAL DIAGNOSTIC Surgeons Panel 1: * Mary Schneider - Primary Panel 2: * Mary Schneider - Primary Resident/Fellow/Other After School Driver: Surgeons and Role: Panel 1: * Riana Vela PA-C - Resident - Assisting Staff: [place] Examiner: Jameel Scrub Person: Simon Fitzgeraldub Person: Reggie Anesthesia Staff: Anesthesiologist: Gabo Munoz MD Lapidary Apprentice: Candice Aceves MD; Delvis Santana MD Procedure [...] entire procedure. Mary Schneider documented in this encounterUnTriHealth Work Phone: 1(272) 120-414112-26-2024 History and physical note* Jessica Carreon MD [...] Schneider MD at 05/11/2024 6:34 AM EST [facility] Work Phone: 1([phone]) 366-758412-26-2024 History and physical note* Jessica Carreon MD [...] 05/11/2024 6:34 AM EST documented in this [facility] Work Phone: 1(563) 315-403012-24-2024 History of Present illness Narrative* Mary Ismael - 05/09/2024 10:02 AM EST Pharmacy Medication History Review Jeremie Bennett is a 83 y.o. male who is planned to be admitted for Malignant neoplasm of floor of mouth. Pharmacy called the patient prior to their scheduled procedure and reviewed the patient's yocab-mw-snyufpafj medications for accuracy. Medications ADDED: none Medications [...] used to complete the med history include: [facility] Pharmacy dispense history Patient interview Chart Review Care Everywhere Below are additional concerns with the patient's TELEPHONE CLERK list. Patient states they are taking #1 tablet of metformin XR 500mg once daily. L.F. 02/24/24 #200/100d (prescription states #1BID) Patient states they are taking #1 tablet of rosuvastatin 10mg daily. L.F. 05/31/23 #90/90d. There is no recent fill history to confirm [facility] Please reach out via Secure Chat for questions [facility] Work Phone: [phone]) 410-148512-10-2024 NoteUT Electrophysiology Consult Note [place] Cardiology [facility] Reason for visit: Device at [facility] HPI: Jeremie Bennett is a 83 y.o. year old with past medical history of hypertension, hyperlipidemia CAD was noted to have a pacemaker placed by Dr. Shi for ?SND which is approaching [facility]. He has previously been [...] Heart valve disease Hyperlipidemia VT (ventricular tachycardia) (CMS/HCC) PSH: Past Surgical History: Procedure Laterality Date ABLATION OF DYSRHYTHMIC FOCUS CARDIAC CATHETERIZATION INSERT / REPLACE / REMOVE PACEMAKER SH: Social Determinants of Health Tobacco Use: Medium Risk (05/11/2024) Received from [facility] Patient History Smoking Tobacco Use: Former Smokeless Tobacco Use: Former Passive Exposure: Not on file Alcohol Use: Not on file Financial Resource Strain: Not on file Food Insecurity: Not on file Transportation Needs: Not on file Physical Activity: Not on file Stress: Not on file Social Connections: Not on file Intimate Partner Violence: Unknown (07/08/2023) PA Safety & Environment Fear of Current or Ex-Partner: Not on file Emotionally Abused: Not on file Physically Abused: Not on file Sexually Abused: Not on file Physically or Sexually Abused: Not on file Depression: Not at risk (04/07/2024) Received from [facility] PHQ-2 Patient Health Questionnaire-2 Score: 0 [...] TSH , T3 TO (more content not included)...[facility] NotePatient Education Nutrition BMI for Adults Body [...] for Disease Control and Prevention: cdc.gov ??? [place] Heart Association: heart.org ??? National Heart, Lung, and Blood [place]: nhlbi.nih.gov This information is not intended to replace advice given to you by your health care provider. Make sure you discuss any questions you have with your health care provider. Document Revised: 01/21/2023 Document Reviewed: 01/14/2023 [employer] Patient Education ? 2023 [employer] 04-07-2024 History of Present illness Narrative* Mary Schneider MD - 04/07/2024 10:45 AM EST HEAD AND NECK SURGERY CONSULT [facility] Referring Provider: Dr. Ham HPI I [...] lymph node Procedure Note: Diagnostic Flexible Laryngoscopy (34416) Indication: patient symptoms requiring evaluation of pharyngeal/laryngeal/hypopharyngeal [...] for this, has a pacemaker and seeing television production clerk soon. Will follow up biopsy and call him with the results Mary Schneider MD documented in this [facility] Work Phone: [phone]) 959-359711-13-2024 History of Present illness Narrative* Luc Ham MD - 03/29/2024 10:20 AM EST Subjective Patient ID: Jeremie Bennett is a 83 y.o. 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[facility]) 01/27/2024 BMI 29.0-29.9,adult 01/27/2024 Cardiac dysrhythmia 04/03/2022 Ventricular tachycardia ([facility]) 01/27/2024 Carpal tunnel syndrome, left 01/27/2024 Carpal tunnel syndrome, right 01/27/2024 Cervical lymphadenopathy 01/27/2024 Spondylosis of cervical spine 01/27/2024 Cervical vertebral fusion 04/03/2022 Spondylosis of lumbar spine 01/27/2024 Chronic venous insufficiency 01/27/2024 Colon polyp 01/27/2024 Type 2 diabetes mellitus ([facility]) 01/27/2024 Type 2 diabetes mellitus without complication, without long-term current use of insulin ([facility]) 04/14/2023 Diabetic autonomic neuropathy associated with type 2 diabetes mellitus ([facility]) 04/14/2023 Diabetic peripheral neuropathy associated with type 2 diabetes mellitus ([facility]) 01/27/2024 Diverticulosis 01/27/2024 Dysphagia 04/14/2023 Essential hypertension ([facility]) 04/03/2022 Excessive daytime sleepiness 01/27/2024 FH: stomach cancer 04/14/2023 Chronic GERD 01/27/2024 GERD with apnea 01/27/2024 Glaucoma ([facility]) 04/03/2022 Hemorrhoids 01/27/2024 History of colon polyps 01/27/2024 History of malignant neoplasm of prostate 04/03/2022 [place] (hard of hearing) 04/03/2022 Hypercholesterolemia ([facility]) 04/03/2022 Hyperlipidemia (CMS/HCC) 04/03/2022 Insomnia 04/03/2022 Internal derangement of right knee 01/27/2024 Irregular bowel habits 04/14/2023 Lump on neck 04/14/2023 Migraines ([facility]) 04/03/2022 Aortic valve regurgitation 04/26/2019 Mitral valve regurgitation 04/26/2019 Neuropathy 04/03/2022 NPH (normal pressure hydrocephalus) ([facility]) 04/03/2022 Central sleep apnea 01/27/2024 Obstructive sleep apnea 04/03/2022 Osteoarthritis 04/03/2022 Osteoarthritis of carpometacarpal (CMC) joint of left thumb 01/27/2024 Osteochondritis dissecans of right ankle 01/27/2024 Other specified disorders of synovium, right ankle and foot 01/27/2024 Pain in right ankle and joints of right foot 01/27/2024 Pancreatic cyst ([facility]) 04/14/2023 Paresthesia of both hands 01/27/2024 Edema of lower extremity 04/26/2019 Polyneuropathy associated with underlying disease ([facility]) 01/27/2024 Presence of cardiac pacemaker 03/14/2021 Prostate cancer ([facility]) 04/03/2022 Prostatitis 04/14/2023 Skin cancer 04/03/2022 Swollen lymph nodes 04/14/2023 Thoracic aortic ectasia ([facility]) 01/27/2024 Vitamin D deficiency 04/03/2022 Resolved Ambulatory Problems Diagnosis Date Noted Bloating 01/27/2024 Cellulitis of toe of left foot 01/27/2024 Cellulitis of toe of right foot 01/27/2024 Chest wall pain 04/03/2022 Gallstones 04/03/2022 COVID-19 11/10/2022 Entrapment of left ulnar nerve 01/27/2024 Entrapment of right ulnar nerve 01/27/2024 Fecal soiling 04/03/2022 Fecal urgency 04/14/2023 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 aspirin 81 MG EC tablet Take 81 mg by mouth in the morning. rcfjsdjoez-deskvprpspees-szyssiue 50-325-40 MG tablet Take 1 tablet by [...] completed for surveillance exams. documented in this encounterLee's Summit [id number] History of Present illness Narrative* Kandi Rodriguez RT(R) - 03/27/2024 10:00 AM EST RADIOLOGY [...] PATIENT PRESENTS WITH AN IMPLANTABLE OR ATTACHED SIDING INSTALLER: No CREATININE: No results found for: CREAT [...] radiation safety can be found usingthis link: [email or web address] 20Diagnostic%20Nuclear%20Medicine%20Procedures.pdf SIGNATURE: RT Jennifer(R) PATIENT NAME: Jeremie Bennett DATE: March 27, 2024 TIME: 10:14 AM PAGER/CONTACT #: documented in this encounterToledo [facility]11-11-2024 NoteHNO ID: [id number] Author: KANDI RODRIGUEZ RT(R) Service: ? Author [...] PATIENT PRESENTS WITH AN IMPLANTABLE OR ATTACHED SIDING INSTALLER: No CREATININE: No results found for: CREAT [...] 1003 PATIENT DISCHARGED TO: Ambulatory patient, left [place] department area. Is this a therapy: No A Diagnostic radioactive procedure has taken place, with no further precautions necessary other than routine body substance precautions. More information regarding radiation safety can be found using this link: [email or web address] 20Diagnostic%20Nuclear%20Medicine%[email or web address] SIGNATURE: FLORY Rodriguez) PATIENT NAME: Jeremie Bennett DATE: March 27, 2024 TIME: 10:14 AM PAGER/CONTACT #:[facility]10-23-2024 History of Present illness Narrative* Luc Hma MD - 03/08/2024 9:40 AM EDT Images [...] Diagnosis Date Noted Arteriosclerosis of coronary artery ([facility]) 01/20/2019 Arthritis of ankle, right 01/27/2024 Arthritis of carpometacarpal (CMC) joint of left thumb 01/27/2024 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[facility]) 01/27/2024 BMI 29.0-29.9,adult 01/27/2024 Cardiac dysrhythmia 04/03/2022 Ventricular tachycardia ([facility]) 01/27/2024 Carpal tunnel syndrome, left 01/27/2024 Carpal tunnel syndrome, right 01/27/2024 Cervical lymphadenopathy 01/27/2024 Spondylosis of cervical spine 01/27/2024 Cervical vertebral fusion 04/03/2022 Spondylosis of lumbar spine 01/27/2024 Chronic venous insufficiency 01/27/2024 Colon polyp 01/27/2024 Type 2 diabetes mellitus ([facility]) 01/27/2024 Type 2 diabetes mellitus without complication, without long-term current use of insulin ([facility]) 04/14/2023 Diabetic autonomic neuropathy associated with type 2 diabetes mellitus ([facility]) 04/14/2023 Diabetic peripheral neuropathy associated with type 2 diabetes mellitus ([facility]/HCC) 01/27/2024 Diverticulosis 01/27/2024 Dysphagia 04/14/2023 Essential hypertension ([facility]) 04/03/2022 Excessive daytime sleepiness 01/27/2024 FH: stomach cancer 04/14/2023 Chronic GERD 01/27/2024 GERD with apnea 01/27/2024 Glaucoma ([facility]) 04/03/2022 Hemorrhoids 01/27/2024 History of colon polyps 01/27/2024 History of malignant neoplasm of prostate 04/03/2022 [place] (hard of hearing) 04/03/2022 Hypercholesterolemia ([facility]/HCC) 04/03/2022 Hyperlipidemia (CMS/HCC) 04/03/2022 Insomnia 04/03/2022 Internal [...] Diverticulitis GERD (gastroesophageal reflux disease) HTN (hypertension) ([facility]) Migraine headache ([facility]) Pain management Paronychia of great toe Personal history of other medical treatment 04/2018 Sinus tarsi syndrome of right foot Sleep apnea Toe pain, right Type 2 diabetes mellitus with diabetic neuropathy ([facility]) Past Surgical History: Procedure Laterality Date CARDIAC CATHETERIZATION 08/30/2019 CATARACT EXTRACTION Bilateral CERVICAL FUSION 2015 C3-C4-C5 CHOLECYSTECTOMY HERNIA REPAIR 2001 INSERT / REPLACE / REMOVE PACEMAKER 2014 pacemaker insertion OTHER SURGICAL HISTORY 2004 ablation OTHER SURGICAL HISTORY 2006 sphincterotomy [place] CHOLECYSTECTOMY 02/2020 Laparoscopic Cholecystectomy - [place] IMPLANT ARTIFICIAL SPHINCTER 2017 PROSTATE 2000 TONSILLECTOMY 1970 Allergies Allergen Reactions Niacin Itching and Unknown Wound Dressing Adhesive Unknown Current Outpatient Medications on File Prior to Visit Medication Sig Dispense Refill amLODIPine (Norvasc) 5 MG tablet Take 5 mg by mouth in the morning. aspirin 81 MG EC tablet Take 81 mg by mouth in the morning. wjsmwwnsfm-ciabkqrazwtyt-mdeqhxuq 50-325-40 MG tablet Take 1 tablet by [...] suspicious for the primary documented in this [facility]10-21-2024 Telephone encounter Note* Telephone Encounter - Antoinette Ham - 03/06/2024 11:18 AM EDT Pt is scheduled for 03/08/[address] Ham[address] [facility] [id number] Miscellaneous Notes* Telephone Encounter - Antoinette Ham - 03/06/2024 11:18 AM EDT Pt is scheduled for 03/08/[address] Ham. 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[facility]) 01/27/2024 BMI 29.0-29.9,adult 01/27/2024 Cardiac dysrhythmia 04/03/2022 Ventricular tachycardia ([facility]) 01/27/2024 Carpal tunnel syndrome, left 01/27/2024 Carpal tunnel syndrome, right 01/27/2024 Cervical lymphadenopathy 01/27/2024 Spondylosis of cervical spine 01/27/2024 Cervical vertebral fusion 04/03/2022 Spondylosis of lumbar spine 01/27/2024 Chronic venous insufficiency 01/27/2024 Colon polyp 01/27/2024 Type 2 diabetes mellitus ([facility]) 01/27/2024 Type 2 diabetes mellitus without complication, without long-term current use of insulin ([facility]) 04/14/2023 Diabetic autonomic neuropathy associated with type 2 diabetes mellitus ([facility]) 04/14/2023 Diabetic peripheral neuropathy associated with type 2 diabetes mellitus ([facility]) 01/27/2024 Diverticulosis 01/27/2024 Dysphagia 04/14/2023 Essential hypertension ([facility]) 04/03/2022 Excessive daytime sleepiness 01/27/2024 FH: stomach cancer 04/14/2023 Chronic GERD 01/27/2024 GERD with apnea 01/27/2024 Glaucoma ([facility]) 04/03/2022 Hemorrhoids 01/27/2024 History of colon polyps 01/27/2024 History of malignant neoplasm of prostate 04/03/2022 [place] (hard of hearing) 04/03/2022 Hypercholesterolemia (CMS/HCC) [...] Diverticulitis GERD (gastroesophageal reflux disease) HTN (hypertension) ([facility]) Migraine headache ([facility]) Pain management Paronychia of great toe Personal history of other medical treatment 04/2018 Sinus tarsi syndrome of right foot Sleep apnea Toe pain, right Type 2 diabetes mellitus with diabetic neuropathy ([facility]) Past Surgical History: Procedure Laterality Date CARDIAC CATHETERIZATION 08/30/2019 CATARACT EXTRACTION Bilateral CERVICAL FUSION 2015 C3-C4-C5 CHOLECYSTECTOMY HERNIA REPAIR 2001 INSERT / REPLACE / REMOVE PACEMAKER 2014 pacemaker insertion OTHER SURGICAL HISTORY 2004 ablation OTHER SURGICAL HISTORY 2006 sphincterotomy [place] CHOLECYSTECTOMY 02/2020 Laparoscopic Cholecystectomy - [place] IMPLANT ARTIFICIAL SPHINCTER 2017 PROSTATE 2000 TONSILLECTOMY 1970 Allergies Allergen Reactions Niacin Itching and Unknown Wound Dressing Adhesive Unknown Current Outpatient Medications on File Prior to Visit Medication Sig Dispense Refill amLODIPine (Norvasc) 5 MG tablet Take 5 mg by mouth in the morning. aspirin 81 MG EC tablet Take 81 mg by mouth in the morning. 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 Robins in [place] -he is following up with them next [...] Oral, Daily aspirin 81 mg, Oral, Daily nafzzrromh-ijrluiqukybfi-qwjkvlms 50-325-40 MG tablet 1 tablet, Oral, Every [...] (CMS/HCC) 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CMS/HCC) 01/27/2024 Migraine headache ([facility]/HCC) Mixed incontinence 01/27/2024 Other specified disorders of [...] mellitus with diabetic neuropathy (CMS/HCC) Ventricular tachycardia ([facility]/HCC) Past Surgical History: Past Surgical History: Procedure Laterality Date CARDIAC CATHETERIZATION 08/30/2019 CATARACT EXTRACTION Bilateral CERVICAL FUSION 2016 C3-C4-C5 CHOLECYSTECTOMY HERNIA REPAIR 2001 INSERT / REPLACE / REMOVE PACEMAKER 2015 pacemaker insertion OTHER SURGICAL HISTORY 2004 ablation OTHER SURGICAL HISTORY 2006 sphincterotomy [place] CHOLECYSTECTOMY 02/2020 Laparoscopic Cholecystectomy - [place] IMPLANT ARTIFICIAL SPHINCTER 2017 PROSTATE 2000 TONSILLECTOMY [...] 2+ 2+ Patellar 2+ 2+ Coordination Right: Zwoaqc-xm-sygf normal.Left: Hgqkbb-uk-ijtz normal. Gait Casual gait is normal including [...] up in 6 months documented in this encounterLee's Summit HospitalOnusdgmdgt09-20-5661 Telephone encounter Note* Telephone Encounter - Carlitos Beckman - 02/07/2024 9:29 AM EDT Images from the original note were not included. IPMN surveillance. Review OSH images and advise please [facility] 11/09/2023 [facility] Miscellaneous Notes* Telephone Encounter - Carlitos Beckman - 02/07/2024 9:29 AM EDT Images from the original note were not included. IPMN surveillance. Review OSH images and advise please [facility] Pancreat[facility] 11/09/2023 * Telephone Encounter [...] and it was completed in 12/2023 at [facility]. Our office will request results for Dr. Pringle's review. Follow up will be determined upon Dr. Pringle's review of results. documented in this encounterToledo Hospital09-20-2024 Telephone encounter Note * Telephone Encounter - Carlitos Beckman - 02/04/2024 9:03 AM EDT Surveillance imaging completed at OSH for IPMN surveillance. [facility]09-18-[facility] Telephone encounter Note* Telephone Encounter - Carlitos Beckman - 02/02/2024 8:57 AM EDT Call to patient to discuss plan of care. Surveillance imaging needed to evaluate pancreas cyst. Dx: IPMN Per Dr. Vaishali Pringle- recommended repeat MRI in 1 year Last imaging 02/17/2024 Orders placed: MRI Pancreas w/wo IVCON Patient's local GI ordered MRI and it was completed in 12/2023 at [facility]. Our office will request results for Dr. Pringle's review. Follow up will be determined upon Dr. Pringle's review of results. [facility]09-17-[facility] History of Present illness Narrative* Luc [...] Diagnosis Date Noted Arteriosclerosis of coronary artery ([facility]) 01/20/2019 Arthritis of ankle, right 01/27/2024 Arthritis [...] Colon polyp 01/27/2024 Type 2 diabetes mellitus ([facility]) 01/27/2024 Type 2 diabetes mellitus without complication, without long-term current use of insulin ([facility]) 04/14/2023 Diabetic autonomic neuropathy associated with type 2 diabetes mellitus (CMS/HCC) 04/14/2023 Diabetic peripheral neuropathy associated with type 2 diabetes mellitus (CMS/HCC) 01/27/2024 Diverticulosis 01/27/2024 Dysphagia 04/14/2023 Essential hypertension ([facility]) 04/03/2022 Excessive daytime sleepiness 01/27/2024 FH: stomach cancer 04/14/2023 Chronic GERD 01/27/2024 GERD with apnea 01/27/2024 Glaucoma ([facility]) 04/03/2022 Hemorrhoids 01/27/2024 History of colon polyps 01/27/2024 History of malignant neoplasm of prostate 04/03/2022 [place] (hard of hearing) 04/03/2022 Hypercholesterolemia (CMS/[facility]) 04/03/2022 Hyperlipidemia (CMS/HCC) 04/03/2022 Insomnia 04/03/2022 Internal derangement of right knee 01/27/2024 Irregular bowel habits 04/14/2023 Lump on neck 04/14/2023 Migraines (CMS/HCC) 04/03/2022 Aortic valve regurgitation 04/26/2019 Mitral valve regurgitation 04/26/2019 Neuropathy 04/03/2022 NPH (normal pressure hydrocephalus) ([facility]) 04/03/2022 Central sleep apnea 01/27/2024 Obstructive sleep apnea 04/03/2022 Osteoarthritis 04/03/2022 Osteoarthritis of carpometacarpal (CMC) joint of left thumb 01/27/2024 Osteochondritis dissecans of right ankle 01/27/2024 Other specified disorders of synovium, right ankle and foot 01/27/2024 Pain in right ankle and joints of right foot 01/27/2024 Pancreatic cyst ([facility]) 04/14/2023 Paresthesia of both hands 01/27/2024 Edema of lower extremity 04/26/2019 Polyneuropathy associated with underlying disease ([facility]) 01/27/2024 Presence of cardiac pacemaker 03/14/2021 Prostate cancer ([facility]) 04/03/2022 Prostatitis 04/14/2023 Skin cancer 04/03/2022 Swollen lymph nodes 04/14/2023 Thoracic aortic ectasia ([facility]) 01/27/2024 Vitamin D deficiency 04/03/2022 Resolved Ambulatory Problems Diagnosis Date Noted Bloating 01/27/2024 Cellulitis of toe of left foot 01/27/2024 Cellulitis of toe of right foot 01/27/2024 Chest wall pain 04/03/2022 Gallstones 04/03/2022 COVID-19 11/10/2022 Entrapment of left ulnar nerve 01/27/2024 Entrapment of right ulnar nerve 01/27/2024 Fecal soiling 04/03/2022 Fecal urgency 04/14/2023 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[facility]) 01/27/2024 Lower abdominal pain 04/03/2022 [...] Diverticulitis GERD (gastroesophageal reflux disease) HTN (hypertension) ([facility]) Migraine headache ([facility]) Pain management Paronychia of great toe Personal history of other medical treatment 04/2018 Sinus tarsi syndrome of right foot Sleep apnea Toe pain, right Type 2 diabetes mellitus with diabetic neuropathy ([facility]) Past Surgical History: Procedure Laterality Date CARDIAC CATHETERIZATION 08/30/2019 CATARACT EXTRACTION Bilateral CERVICAL FUSION 2016 C3-C4-C5 HERNIA REPAIR 2002 INSERT / REPLACE / REMOVE PACEMAKER 2015 pacemaker insertion OTHER SURGICAL HISTORY 2004 ablation OTHER SURGICAL HISTORY 2007 sphincterotomy [place] CHOLECYSTECTOMY 02/2020 Laparoscopic Cholecystectomy - [place] IMPLANT ARTIFICIAL SPHINCTER 2017 PROSTATE 2000 TONSILLECTOMY 1970 Allergies Allergen Reactions Niacin Itching and Unknown Wound Dressing Adhesive Unknown Current Outpatient Medications on File Prior to Visit Medication Sig Dispense Refill amLODIPine (Norvasc) 5 MG tablet Take 5 mg by mouth in the morning. aspirin 81 MG EC tablet Take 81 mg by mouth in the morning. obuxehslfv-exvunoijajrcm-yefozmno 50-325-40 MG tablet Take 1 tablet by [...] actual location and nature documented in this encounterLee's Summit [id number] Hospital Discharge instructions Patient Education 09/17/2023 09:05:07 [...] grapefruit, pineapple, and nury. Vegetables Deep-fried vegetables. Danish fries. Any vegetables prepared with added fat. [...] provider. Document Revised: 11/11/2020 Document Reviewed: 11/11/2020 [employer] Patient Education 2022 [employer]. Follow Up Care 06/25/2023 12:06:59 With:Sammi CASON, Jaiden Douglas GAS, [facility] Address: [address] [place] [address], [address] [place] [address]- [phone] When:3 months [facility] 01-15-2024 Evaluation note* [...] months. A prescription was sent to the [employer] for new supplies throughout the year. He [...] sleepiness, or poor response to treatment. . [facility] Other 01-09-2024 Hospital Discharge instructions Patient Education [...] grapefruit, pineapple, and nury. Vegetables Deep-fried vegetables. Danish fries. Any vegetables prepared with added fat. [...] provider. Document Revised: 11/11/2020 Document Reviewed: 11/11/2020 [employer] Patient Education 2022 [employer]. Follow Up Care 02/25/2023 14:06:51 With:Anjali Ruby CNP Address: When:1 month [facility] [id number] Miscellaneous Notes* Telephone Encounter - Lolly Dumont - 04/05/2023 9:44 AM EST Received records from [facility]. Reports for imaging listed below scanned. Images pushed through 09/27/2019 US Right Upper Quad 03/31/2020 CT ABD/PEL US Right Upper Quad [facility] MRI Abdomen 02/22/2023 US Soft Tissue Head & Neck Received many misc. labs & ER reports Operative Note & pathology from Laparoscopic Cholecystectomy Patient seen 04/01, please review, thank you! documented in this encounterToledo Hospital11-16-2023 Nurse Note* Debby Holland MA - [...] Temperature: No Drains: No documented in this encounterToledo Hospital11-16-2023 History of Present illness Narrative* Vaishali [...] Level: 4 - Moderate documented in this encounterToledo Hospital11-16-2023 NoteHNO ID: [id number] Author: Vaishali Pringle MD Service: ? Author [...] Pringle MD Medical De (more content not included)...[facility]10-25-2023 Hospital Discharge instructions Patient Education 03/10/2023 09:19:04 [...] Follow these instructions at home: Medicines Take edek-rhn-omzsult and prescription medicines only as told by [...] Watch your condition for any changes. Take wvjw-clu-dnlwgoz and prescription medicines only as told by [...] provider. Document Revised: 06/21/2020 Document Reviewed: 09/11/2019 [employer] Patient Education 2022 [employer]. Follow Up Care 03/09/2023 09:58:32 With:Anjali Ruby CNP Address: When:1 to 2 weeks Comments:Following EGD. [facility] 10-12-2023 Hospital Discharge [...] Follow these instructions at home: Medicines Take enhp-syr-anrqshs and prescription medicines only as told by your health care provider. If you were prescribed an antibiotic medicine, take it as told by your health care provider. Do notstop taking the antibiotic even if you start to feel better. Eating and drinking Make any diet changes as told by your health care provider. Work with a diet and marketing operations specialist (dietitian) to create an eating plan [...] provider. Document Revised: 12/21/2020 Document Reviewed: 12/21/2020 [employer] Patient Education 2022 [employer]. Follow Up Care 02/22/2023 16:17:47 With:Anjali Ruby CNP Address: When:3 months [facility] 09-15-2023 Evaluation note* [...] months. A prescription was sent to the [employer] for new supplies throughout the year. He [...] sleepiness, or poor response to treatment. . [facility] Other 08-29-2023 Hospital Discharge instructions Patient Education [...] including vitamins, herbs, eye drops, creams, and kjbo-ine-ehtwxhu medicines. Any problems you or family members [...] provider tells you to take them. Taking gqaa-rgi-mcfcevz medicines, vitamins, herbs, and supplements. General instructions [...] provider. Document Revised: 04/27/2022 Document Reviewed: 12/24/2021 [employer] Patient Education 2022 [employer]. Follow Up Care 12/28/2022 08:53:11 With:Anjali Ruby CNP Address: When:1 to 2 weeks Comments:Following EGD/Colonoscopy. [facility] 05-30-2023 Evaluation note* [...] sleepiness, or poor response to treatment. . [facility] Other 05-09-2023 Hospital Discharge instructions Patient Education [...] managed at home with rest, fluids, and yote-dxt-tnzgmmw medicines. Serious symptoms may be treated in [...] water are not available, use alcohol-based hand block breaker operator. Make sure that all people in [...] managed at home with rest, fluids, and dyrc-hxz-kmosqlf medicines. This information is not intended to replace advice given to you by your health care provider. Make sure you discuss any questions you have with your health care provider. Document Revised: 04/23/2022 Document Reviewed: 04/23/2022 [employer] Patient Education 2022 [employer]. Follow Up Care 09/22/2022 16:24:11 With:Demetrius Cooper Address[address] [id number] Business (2) When:09/25/2022 18:12:09 [facility]05-09-2023 Evaluation [...] no improvement in 2 to 3 days. [facility] Other 04-11-2023 NoteCONSULTATION CONSULTATION DATE: 08/25/2022 TO: [...] our patients to inform us about any ofds-srh-ztlobwg medications or herbal remedies/nutritional supplements/alternative remedies. 2. [...] treatment options with their primary care provider.[id number] Evaluation note * Encounter Date Diagnosis Assessment [...] symptoms if he does not take his pitn-vom-tosgbva hypnotic, sleep hygiene issues may also be [...] neuropathy pain Jul, Coronary artery disease involving [place] heart without angina pectoris, unspecified vessel or [...] he does have a defibrillator in place [facility] Other 03-09-2023 NoteCONSULTATION CONSULTATION DATE: 07/23/2022 HISTORY [...] gain authorization to hold the Plavix pre-procedure.[facility] HospitalLijjrytt20-75-5611 NotePROCEDURE: XR ANKLE RT MIN 3 VIEWS COMPARISON: 08/22/2020 HISTORY: Pain of right ankle joint FINDINGS: BONES:No acute fracture or dislocation. Moderate enthesopathic spurring of the calcaneus. Degenerative changes with bone fragments along the inferior medial malleolus, stable. SOFT TISSUES:Negative. No visible soft tissue swelling. EFFUSION:None visible. OTHER: Negative. IMPRESSION: Stable degenerative changes Electronically authenticated by: ERWIN FALCON Date: 2022-07-22 10:37[facility] HospitalSvymvmwn64-20-4609 NotePROCEDURE: XR FOOT RT MIN 3 VIEWS [...] authenticated by: CLARISSA GARCIA Date: 2022-06-16 15:25[facility] HospitalZwfvgvpg94-70-8090 Hospital Discharge instructions Patient Education 05/26/2022 13:46:25 [...] GALICIA Address: [facility] [address] [place] [address]- [facility] (1) When: Unknown Comments:Office will call to [...] will be followed up in the clinic.[facility] 12-25-2021 NoteCONSULTATION CONSULTATION DATE: 12/25/2021 This [...] recently seen at an urgent care in [place] for left thumb pain and joint swelling. [...] in three months' time unless otherwise indicated.[facility] [id number] Evaluation note* Encounter Date Diagnosis Assessment Notes [...] will help you get into a specialist. [facility] Other Chief complaint+Reason for visit Narrative* Chief Complaint N54.2 Self Referral [facility] Work Phone: Chief complaint+Reason for visit Narrative* Chief Complaint N54.2 Self Referral [id number] m54.12 m54.2 [facility] Work Phone: Chich complaint+Reason for visit Narrative* Chief Complaint N54.2 Self Referral [id number] m54.12 m54.2 isidro, 31-90 MSC [facility] Work Phone: Discharge summary Author Zeke Brennan [facility] Note Date/Time August 21, 2024 2:14 pm [facility] [address] [place] [address] Discharge Summary Signed Patient: Jeremie Bennett MR#: [id number] : 1940 Acct:[id number] Age/Sex: 83 / M Adm Date: 5 Loc: Room: [address] [place] [address]: Zeke Brennan MD Copies to: MD Demetrius Fma MD~ Providers Date of Discharge: 08/21/24 Discharging [...] Continuity of Care Document Health Concerns: A [facility] screening has identified you as [...] Four Ways to Beat the Frailty Risk [email or web address]-[email or web address]-[email or web address] Exam Physical Exam Vital Signs: Temp Pulse [...] % (Auto) 75.8, Lymph % (Auto) 9.0, Winn % (Auto) 13.6, Eos % (Auto) 1.0, Baso % (Auto) 0.6, Nucleat RBC Rel Count 0.1, Neut # (Auto) 4.7, Lymph # (Auto) 0.6 L, Winn # (Auto) 0.8, Eos # (Auto) 0.1, [...] Appearance Clear, Urine pH 5.5, Ur Specific [place] 1.017, Urine Protein Negative, Urine Glucose (UA) [...] % (Auto) 77.0, Lymph % (Auto) 10.5, Winn % (Auto) 11.3, Eos % (Auto) 0.7, Baso % (Auto) 0.5, Nucleat RBC Rel Count 0.2, Neut # (Auto) 5.7, Lymph # (Auto) 0.8 L, Winn # (Auto) 0.8, Eos # (Auto) 0.1, [...] signed by Zeke Brennan MD> 08/21/24 1414 [facility] Work Phone: Evaluation + Plan note No data available for this section [facility] Future Appointments Appointment Date:11/23/2022 09:00:00 AM Scheduled Provider:Demetrius Cooper MD Location:[facility] Appointment Type: Open [facility] Future Appointments Appointment Date:12/15/2022 12:00:00 PM Scheduled Provider:Anjali Ruby CNP Location:[facility] Digestive Health Appointment Type:[facility] New Patient Appointment Date:05/31/2023 09:00:00 AM Scheduled Provider:Demetrius Cooper MD Location:[facility] Appointment Type: Open Appointment Date:11/08/2023 01:00:00 PM Scheduled Provider: Location:[facility] Appointment Type:FM Medicare Wellness Subsequent Future Scheduled Tests Laboratory* HgbA1c 11/23/22 * CBC w/ Auto Diff 11/23/22 * Comprehensive Metabolic Panel 11/23/22 * Lipid Panel 11/23/22 [facility] Future Appointments Appointment Date:05/31/2023 09:00:00 AM Scheduled Provider:Demetrius Cooper MD Location:[facility] Appointment Type: Open Appointment Date:11/08/2023 01:00:00 PM Scheduled Provider: Location:[facility] Appointment Type:FM Medicare Wellness Subsequent Future Scheduled Tests Laboratory* HgbA1c 11/23/22 * CBC w/ Auto Diff 11/23/22 * Comprehensive Metabolic Panel 11/23/22 * Lipid Panel 11/23/22 [facility] Future Appointments Appointment Date:05/31/2023 09:00:00 AM Scheduled Provider:Demetrius Cooper MD Location:[facility] Appointment Type: Open Appointment Date:11/08/2023 01:00:00 PM Scheduled Provider: Location:[facility] Appointment Type:FM Medicare Wellness Subsequent Future Scheduled Tests Laboratory* HgbA1c 11/23/22 * CBC w/ Auto Diff 11/23/22 * Comprehensive Metabolic Panel 11/23/22 * Lipid Panel 11/23/22 Radiology* CT Abdomen w/ Contrast 01/12/23 [facility] Dig[facility]ive Health Evaluation + Plan note Future Appointments Appointment Date:05/03/2023 01:40:00 PM Scheduled Provider:Anjali Ruby CNP Location:[facility] Appointment Type:[facility] Follow Up Appointment Date:05/31/2023 09:00:00 AM Scheduled Provider:Demetrius Cooper MD Location:[facility] Appointment Type: Open Appointment Date:11/08/2023 01:00:00 PM Scheduled Provider: Location:[facility] Appointment Type:FM Medicare Wellness Subsequent Future Scheduled Tests Laboratory* HgbA1c 11/23/22 * CBC w/ Auto Diff 11/23/22 * Comprehensive Metabolic Panel 11/23/22 * Lipid Panel 11/23/22 [facility] Mytrusaluation + Plan note Future Appointments Appointment Date:05/03/2023 01:40:00 PM Scheduled Provider:Anjali Ruby CNP Location:[facility] Dig[facility]ive Health Appointment Type:[facility] Follow Up Appointment Date:05/31/2023 10:00:00 AM Scheduled Provider:Demetrius Cooper MD Location:[facility] Appointment Type: Open Appointment Date:11/08/2023 01:00:00 PM Scheduled Provider: Location:[facility] Appointment Type: Medicare Wellness Subsequent Future Scheduled Tests Laboratory* HgbA1c 11/23/22 * CBC w/ Auto Diff 11/23/22 * Comprehensive Metabolic Panel 11/23/22 * Lipid Panel 11/23/22 [facility] Evaluation + Plan note Future Appointments Appointment Date:05/03/2023 01:40:00 PM Scheduled Provider:Anjali Ruby CNP Location:[facility] Appointment Type:[facility] Follow Up Appointment Date:05/31/2023 10:00:00 AM Scheduled Provider:Demetrius Cooper MD Location:[facility] Appointment Type: Open Appointment Date:11/08/2023 01:00:00 PM Scheduled Provider: Location:[facility] Appointment Type:FM Medicare Wellness Subsequent Diagnostic Tests Pending * O & P Exam, Routine 03/10/23 * Giardia lamblia, Direct Detection EIA 03/10/23 Future Scheduled Tests Laboratory* HgbA1c 11/23/22 * CBC w/ Auto Diff 11/23/22 * Comprehensive Metabolic Panel 11/23/22 * Lipid Panel 11/23/22 [facility] Future Appointments Appointment Date:05/31/2023 10:00:00 AM Scheduled Provider:Demetrius Cooper MD Location:[facility] Appointment Type: Open Appointment Date:06/25/2023 01:20:00 PM Scheduled Provider:Anjali Ruby CNP Location:[facility] Appointment Type:[facility] Follow Up Appointment Date:11/08/2023 01:00:00 PM Scheduled Provider: Location:[facility] Appointment Type:FM Medicare Wellness Subsequent Future Scheduled Tests Laboratory* HgbA1c 11/23/22 * CBC w/ Auto Diff 11/23/22 * Comprehensive Metabolic Panel 11/23/22 * Lipid Panel 11/23/22 [facility] Evaluation + Plan note Future Appointments Appointment Date:10/21/2023 03:00:00 PM Scheduled Provider:Inez Henderson MD Location:[facility] Digestive [facility] Appointment Type:[facility] Follow Up Appointment Date:11/08/2023 01:00:00 PM Scheduled Provider: Location:[facility] Appointment Type: Medicare Wellness Subsequent Appointment Date:11/29/2023 10:15:00 AM Scheduled Provider:Demetrius Cooper MD Location:[facility] Appointment Type: Open Future Scheduled Tests Laboratory* U Protein/Creat Ratio 05/31/23 * HgbA1c 11/23/22 * HgbA1c 05/31/23 * Microalbumin Level Urine 05/31/23 * CBC w/ Auto Diff 11/23/22 * Comprehensive Metabolic Panel 11/23/22 * Lipid Panel 11/23/22 [facility] Digestive [facility] Evaluation + Plan note Future Appointments Appointment Date:10/21/2023 03:00:00 PM Scheduled Provider:Inez Henderson MD Location:[facility] Digestive [facility] Appointment Type:[facility] Follow Up Appointment Date:11/08/2023 01:00:00 PM Scheduled Provider: Location:[facility] Appointment Type: Medicare Wellness Subsequent Appointment Date:11/29/2023 10:15:00 AM Scheduled Provider:Demetrius Cooper MD Location:[facility] Appointment Type: Open Diagnostic Tests Pending * Celiac Disease Comprehensive 09/17/23 Future Scheduled Tests Laboratory* U Protein/Creat Ratio 05/31/23 * HgbA1c 11/23/22 * HgbA1c 05/31/23 * Microalbumin Level Urine 05/31/23 * CBC w/ Auto Diff 11/23/22 * Comprehensive Metabolic Panel 11/23/22 * Lipid Panel 11/23/22 [facility] Future Appointments Appointment Date:11/08/2023 01:00:00 PM Scheduled Provider: Location:[facility] Appointment Type: Medicare Wellness Subsequent Appointment Date:11/29/2023 10:15:00 AM Scheduled Provider:Demetrius Cooper MD Location:[facility] Appointment Type: Open Appointment Date:03/23/2024 02:45:00 PM Scheduled Provider:Inez Henderson MD Location:[facility] Dig[facility]ive Health Appointment Type:[facility] Follow Up Future Scheduled Tests Laboratory* U Protein/Creat Ratio 05/31/23 * HgbA1c 11/23/22 * HgbA1c 05/31/23 * Microalbumin Level Urine 05/31/23 * CBC w/ Auto Diff 11/23/22 * Comprehensive Metabolic Panel 11/23/22 * Lipid Panel 11/23/22 Radiology* MRI Cholangiogram Pancreatography (mrcp) 10/21/23 [facility] Evaluation + Plan note Future Appointments Appointment Date:11/29/2023 10:15:00 AM Scheduled Provider:Demetrius Cooper MD Location:[facility] Appointment Type: Open Appointment Date:03/23/2024 02:45:00 PM Scheduled Provider:Inez Henderson MD Location:[facility] Dig[facility]ive Health Appointment Type:[facility] Follow Up Appointment Date:11/06/2024 02:30:00 PM Scheduled Provider: Location:[facility] Appointment Type:FM Medicare Wellness Subsequent Future [...] Date:04/17/2024 10:00:00 AM Scheduled Provider:Demetrius Cooper MD Location:[facility] Appointment Type: Open Appointment Date:11/06/2024 02:30:00 PM Scheduled Provider: Location:[facility] Appointment Type:FM Medicare Wellness Subsequent Future Scheduled Tests Laboratory* U Protein/Creat Ratio 11/24/23 * U Protein/Creat Ratio 05/31/23 * HgbA1c 11/30/23 * HgbA1c 05/31/23 * Microalbumin Level Urine 11/24/23 * Microalbumin Level Urine 05/31/23 * Lipid Panel 11/08/23 Radiology* MRI Cholangiogram Pancreatography (mrcp) 03/23/24 [facility] Dig[facility] evaluation + Plan note Future Appointments Appointment Date:11/06/2024 02:30:00 PM Scheduled Provider: Location:[facility] Appointment Type: Medicare Wellness Subsequent Appointment Date:11/06/2024 03:30:00 PM Scheduled Provider:Demetrius Cooper MD Location:[facility] Appointment Type: Open Future Scheduled Tests Laboratory* U Protein/Creat Ratio 11/24/23 * U Protein/Creat Ratio 05/31/23 * HgbA1c 11/30/23 * HgbA1c 05/31/23 * Microalbumin Level Urine 11/24/23 * Microalbumin Level Urine 05/31/23 * Lipid Panel 11/08/23 [facility] + Plan note Future Appointments Appointment Date:11/21/2024 02:30:00 PM Scheduled Provider: Location:[facility] Appointment Type: Medicare Wellness Subsequent Appointment Date:11/21/2024 03:20:00 PM Scheduled Provider:Demetrius Cooper MD Location:[facility] Appointment Type: Open Diagnostic Tests Pending * Urine Culture 08/30/24 Future Scheduled Tests Laboratory* U Protein/Creat Ratio 11/24/23 * HgbA1c 11/30/23 * Microalbumin Level Urine 11/24/23 * Lipid Panel 11/08/23 [facility] evaluxkqsq noteNo Assessments Information Available [facility] assessment information available [facility] Work Phone: evaluation note* Diagnosis 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 [facility] Diagnosis 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 [facility] Diagnosis Onset Date Resolution Status Viral URI with cough noneact rosa Impacted cerumen, bilateral noneactive Central sleep apnea acute DM (diabetes mellitus) acute Essential hypertension acute Obstructive sleep apnea [facility] Work Phone: Evaluation note* Diagnosis 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 [facility]* Diagnosis Migraine without aura and without status migrainosus, not intractable (CMS/HCC)- Primary Vertigo Dizziness and giddiness Lumbar radiculopathy Thoracic or lumbosacral neuritis or radiculitis, unspecified Neck pain Cervicalgia Degenerative disc disease, cervical Polyneuropathy Unspecified hereditary and idiopathic peripheral neuropathy documented in this encounter [facility]* Diagnosis LAD (lymphadenopathy) of right cervical region- Primary documented in this encounter [facility]* Diagnosis 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 [facility] Diagnosis Oral ulcer- Primary Other and unspecified diseases of the oral soft tissues 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) documented in this encounter [facility]* Diagnosis 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 Ulcer of gingiva documented in this encounter [facility]* Diagnosis Malignant neoplasm metastatic [...] mouth, part unspecified documented in this encounter [facility] Work Phone: Evaluation note* Diagnosis Parotid mass- Primary Swelling, mass, or lump in head and neck documented in this encounter [facility]* Diagnosis Malignant neoplasm of [...] stated as uncontrolled documented in this encounter [facility] Work Phone: Evaluation note* 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 head, face, and neck documented in this encounter [facility] Work Phone: Evaluation note* Diagnosis Enlarged submental lymph node documented in this encounter [facility] Work Phone: Evaluation note* Diagnosis Poor intravenous access- Primary 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) Malignant neoplasm of oropharynx, unspecified site [facility]* Diagnosis Sensorineural hearing loss, bilateral- Primary Tinnitus, bilateral Unspecified tinnitus documented [facility]* Diagnosis Personal history of malignant neoplasm of head and neck- Primary Personal history of malignant neoplasm of other site Dysphagia, unspecified type documented in this encounter [facility] Work Phone: Evaluation note* Diagnosis Esophageal dysphagia- Primary Dysphagia, pharyngoesophageal phase documented [facility]* Diagnosis Vertigo- Primary Dizziness and giddiness Lumbar radiculopathy Thoracic or lumbosacral neuritis or radiculitis, unspecified Chronic bilateral low back pain, unspecified whether sciatica present Degenerative disc disease, cervical Migraine without aura and without status migrainosus, not intractable ([facility]) Polyneuropathy Unspecified hereditary and idiopathic peripheral neuropathy documented [facility]* Diagnosis Esophageal dysphagia- Primary Dysphagia, pharyngoesophageal phase 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, unspecified site [facility]* Diagnosis Personal history of malignant neoplasm of head and neck- Primary Personal history of malignant neoplasm of other site G tube feedings (Multi) At risk for malnutrition documented in this encounter [facility] Work Phone: Evaluation note* Diagnosis Esophageal dysphagia- Primary Dysphagia, pharyngoesophageal phase Carcinoma of oropharynx (HCC) Malignant neoplasm of oropharynx, unspecified site documented in this encounter [facility]* Diagnosis Esophageal dysphagia- Primary Dysphagia, pharyngoesophageal phase documented in this encounter [facility] general Narrative - Reported* Type Description Date Medical History DM (diabetes mellitus) Medical History HTN (hypertension) Medical History Hypercholesteremia Medical History Vitamin D deficiency, unspecifie d Medical History CAD (coronary artery disease) Surgical History Neck Surgery Surgical History cholecystectomy Surgical History cardiac stent Surgical History prostatectomy Surgical History hernia Hospitalization History see above Newsy Other History general Narrative - Reported* Type [...] Surgical History hernia Hospitalization History see above Newsy Other History of Present illness Narrative* Veena Ross DO - 10/11/2024 2:15 PM EDT Images [...] I'll see him PRN documented in this encounterNODE HealthcareHistory of Present illness Narrative * Veena Ross DO - 01/08/2025 3:15 PM EDT Images [...] 2005 ablation OTHER SURGICAL HISTORY 2007 sphincterotomy [place] CHOLECYSTECTOMY 02/2020 Laparoscopic Cholecystectomy - [place] IMPLANT ARTIFICIAL SPHINCTER 2017 PROSTATE 2000 TONSILLECTOMY [...] Grandmother Claire Edwards Cancer Paternal Grandfather Fidel Ginny Other (stomach problem) Paternal Grandfather Fidel Ginny REVIEW OF SYMPTOMS: Review of Systems Constitutional: [...] prior to the visit. [facility] Dis[facility] instructions No data available for this section [facility] Discharge instructionsAmbulatory Orders* Referral to Palliative Medicine Time Frame: 06/14/24, Location: None Selected * RISE Order Location: None Selected [facility] Work Phone: Progress note No data available for this section [facility] HospitalProgress note Author Talib Faustin [facility] Note Date/Time June 14, 2024 1 1:06am [facility] [place] [address] Cancer Center Note Signed Patient: Jeremie Bennett MR#: [id number] : 1940 Acct:[id number] Age/Sex: 83 / M Type: REG AMB [...] by IHC was equivocal. 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 [...] positive squamous cell carcinoma. Tumor board at [facility] [place] and the recommended concurrent chemoradiation. Past medical [...] with concurrent chemoradiation. Since he lives in [place] he was referred by Dr. Mary Schneider from ENT at [facility] to our medical oncology and radiation oncology at [facility]. He is referred to [...] PO DAILY aspirin 81 mg PO DAILY mxilpeg-gtrohaclnpbjk-lmkrhumy 250-250-65 mg (Excedrin Migraine) 1 tab PO [...] [facility] Medical History Medical History (Updated 06/14/24 @ [...] [facility]: Diagnosed with Cancer Social History Social [...] signed by Talib Faustin MD> 06/14/24 1106 [facility] Work Phone: Progress note Author Talib Faustin [facility] Note Date/Time July 12, 2024 9:20am [facility] [place] [address] Cancer Center Note Signed Patient: Jeremie Bennett MR#: [id number] : 1940 Acct:[id number] Age/Sex: 83 / M Type: REG AMB [...] by IHC was equivocal. As per the [facility] tumor board recommendation is either [...] his week 1 of cisplatin. Labs at [facility] on 07/03/24 revealed hgb 13.3, cr is 1.0. He is having his labs here today.He had his pacemaker placed on 07/10/24 in [place]. 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 [...] positive squamous cell carcinoma. Tumor board at [facility] [place] and the recommended concurrent chemoradiation. Past medical [...] with concurrent chemoradiation. Since he lives in [place] he was referred by Dr. Mary Schneider from ENT at [facility] to our medical oncology and radiation oncology at [facility]. He is referred to [...] his week 1 of cisplatin. Labs at [facility] on 07/03/24 revealed hgb 13.3, cr is 1.0. He is having his labs here today.He had his pacemaker placed on 07/10/24 in [place]. Rest of 14 point systems were reviewed [...] PO QAM aspirin 81 mg PO DAILY visgjtj-riwalsbscvqyb-dyfgrgqe 250-250-65 mg (Excedrin Migraine) 1 tab PO [...] other concerns voiced at time of intake. [facility] Medical History Medical History (Updated 07/06/24 @ [...] disease History of stroke [facility] Problem: Diagnosed with Stroke Hypertension Emphysema lung ESRD (end stage renal disease) Sister Cancer [facility] Problem: Diagnosed with Cancer Lymphoma Social [...] signed by Talib Faustin MD> 07/12/24 0920 [facility] Work Phone: Progress note Author Zeke Brennan [facility] Note Date/Time August 21, 2024 2:14 pm [facility] [address] [place] [address] Hospitalist Progress Note Signed Patient: Jeremie Bennett MR#: [id number] : 1940 Acct:[id number] Age/Sex: 83 / M Adm Date: Loc: Room: [address] [place] [address] Type: ADM IN Attending Dr: Zeke Brennan [...] of care and confirmed it with the resident/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 This patient presented to the emergency department [...] spray 08/21/24 09:00 08/21/24 09:02 Fluticasone Propionate Milton 120 Milton/16 Gm Bottle INTRANASAL 08/21/25 08:59 2 spray [...] signed by DO KASSY Lambert> 08/21/24 1152 [facility] Work Phone: Progress note Author Talib Faustin [facility] Note Date/Time November 23, 2024 10:2 6am [facility] [place] [address] Cancer Center Note Signed Patient: Jeremie Bennett MR#: [id number] : 1940 Acct:[id number] Age/Sex: 84 / M Type: REG AMB [...] by IHC was equivocal. As per the [facility] tumor board recommendation is either [...] his week 1 of cisplatin. Labs at [facility] on 07/03/24 revealed hgb 13.3, cr is 1.0. He is having his labs here today.He had his pacemaker placed on 07/10/24 in [place]. 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 [...] positive squamous cell carcinoma. Tumor board at [facility] [place] and the recommended concurrent chemoradiation. Past medical [...] with concurrent chemoradiation. Since he lives in [place] he was referred by Dr. Mary Schneider from ENT at [facility] to our medical oncology and radiation oncology at [facility]. He is referred to [...] his week 1 of cisplatin. Labs at [facility] on 07/03/24 revealed hgb 13.3, cr is 1.0. He is having his labs here today.He had his pacemaker placed on 07/10/24 in [place]. 07/20/2024 he came in complaining of increase [...] NO concerns voiced at time of intake. [facility] Medical History Medical History Squamous cell carcinoma [...] stroke [facility] [facility] Problem: Diagnosed with Stroke Hypertension Emphysema lung ESRD (end stage renal disease) [facility]: Diagnosed with Cancer Lymphoma Social [...] signed by Talib Faustin MD> 11/23/24 1026 [facility] Work Phone: Progress note Author Becky Crouch [facility] Note Date/Time December 26, 2024 1: 25pm [facility] [place] [address] Cancer Center Note Signed Patient: Jeremie Bennett MR#: [id number] : 1940 Acct:[id number] Age/Sex: 84 / M Type: DEP [facility] Date of Service: 12/26/24 Copies to: DO [...] G-tube was placed by surgery here at [facility] and patient is hopeful [...] Extended-Release) Allergy (Unknown, Verified 11/23/24 10:00) hives [facility] Medical History Medical History (Updated 11/23/24 @ [...] <Electronically signed by RAYSHAWN Crouch> 12/26/24 1343 [facility] Work Phone: Reason for referral (narrative) Referred by: Flori GARZA, [facility] Reason for visit Narrative* Auth/Cert Specialty Diagnoses / Procedures Referred By Bakari rosado Referred To Contact Diagnoses 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] Procedures FL GLOSSECTOMY HEMIGLOSSECTOMY FL LARYNGOSCOPY W/WO TRACHEOSCOPY DX EXCEPT FL BRNCHSC INCL FLUOR GDNCE DX W/CELL WASHG SPX FL ESOPHAGOSCOPY FLEXIBLE TRANSORAL DIAGNOSTIC FL TONSILLECTOMY PRIMARY/SECONDARY AGE 12/> GLOSSECTOMY, ROBOT-ASSISTED, ORAL APPROACH Direct Laryngoscopy Bronchoscopy Esophag[place] T[place] [address] [place] [address] Phone: tel: fax: [facility] [place] [address] [place] [address] fax: Referral ID Status Reason Start Date Expiration Date Visits Re quested Visits Authorized [id number] 1 1 [facility] Work Phone: Reason for visit Narrative* Imaging (Routine) - Authorized Specialty Diagnoses / Procedures Referred By Bakari rosado Referred To Contact Radiology Diagnoses Enlarged submental lymph node Procedures US guided biopsy lymph node superficial [place] [address] [place] [address] Phone: tel: fax: Referral ID Status Reason Start Date Expiration Date Visits Requested Visits Authorized [id number] Authorized Perform Procedure 4 05/12/2025 1 1 [facility] Work Phone: Summary Purpose Family History [...] Documents on File Type Date 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 Power of Atty 05/11/2024 Living Will 05/11/2024 Documents on File Type Date 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 Power of Atty [...] Admit Date 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 9:25am Tongue cancer June 14, 2024 9 :25am 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 10:28am Chief Complaint Admit Date NEW-Mal [...] Admit Date 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 9:25am Tongue cancer June 14, 2024 9 :25am 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 10:28am Encounter for palliative care June 182024 8:00am Squamous cell carcinoma of oropharynx [facility] 2024 8:00am Chief Complaint Admit Date [...] Admit Date 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 9:25am Tongue cancer June 14, 2024 9 :25am 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 10:28am Encounter for palliative care June 182024 8:00am Squamous cell carcinoma of oropharynx [facility] 2024 8:00am Cancer associated pain July 12 7:36am Nausea July 12, 2024 7:36am Squamous cell carcinoma of oropharynx [facility] 2024 7:36am Squamous cell carcinoma of oropharynx [facility] 2024 8:29am Tongue cancer July 12, [...] Admit Date Squamous cell carcinoma of oropharynx [facility] 2024 8:13am Cancer associated pain July 26, 2024 8:22am Nausea July 26, 2024 8:2 2am Squamous cell carcinoma of oropharynx [facility] 2024 8:22am Chief Complaint Admit [...] Admit Date Squamous cell carcinoma of oropharynx [facility] 2024 8:13am Cancer associated pain July 26, 2024 8:22am Nausea July 26, 2024 8:2 2am Squamous cell carcinoma of oropharynx [facility] 2024 8:22am Cancer associated pain August 02, 2024 7:29am Constipation August 02, 2024 7:2 9am Squamous cell carcinoma of oropharynx [facility] 2024 7:29am Thrush, oral August [...] Admit Date Squamous cell carcinoma of oropharynx [facility] 2024 8:13am Cancer associated pain July 26, 2024 8:22am Nausea July 26, 2024 8:2 2am Squamous cell carcinoma of oropharynx [facility] 2024 8:22am Cancer associated pain August 02, 2024 7:29am Constipation August 02, 2024 7:2 9am Squamous cell carcinoma of oropharynx [facility] 2024 7:29am Thrush, oral August 02, 2024 7:2 9am Cancer associated pain August 09, 2024 7:51am Constipation August 09, 2024 7:5 1am Nausea August 09, 2024 7:5 1am Squamous cell carcinoma of oropharynx [facility] 2024 7:51am Squamous cell carcinoma of oropharynx [facility] 2024 9:23am Chief Complaint Admit [...] Admit Date Squamous cell carcinoma of oropharynx [facility] 2024 8:13am Cancer associated pain July 26, 2024 8:22am Nausea July 26, 2024 8:2 2am Squamous cell carcinoma of oropharynx [facility] 2024 8:22am Cancer associated pain August 02, 2024 7:29am Constipation August 02, 2024 7:2 9am Squamous cell carcinoma of oropharynx [facility] 2024 7:29am Thrush, oral August 02, 2024 7:2 9am Cancer associated pain August 09, 2024 7:51am Constipation August 09, 2024 7:5 1am Nausea August 09, 2024 7:5 1am Squamous cell carcinoma of oropharynx [facility] 2024 7:51am Squamous cell carcinoma of oropharynx [facility] 2024 9:23am Cancer associated pain August 16, 2024 7 :59am Constipation August 16, 2024 7:59 am Nausea August 16, 2024 7:59 am Squamous cell carcinoma of oropharynx [facility] 2024 7:59am Chief Complaint Admit Date NEW-Mal [...] Tox check July 12, 2024 8:29am Mal Mgiuel base of tongue July 12 10:24am Mal [...] Admit Date Squamous cell carcinoma of oropharynx [facility] 2024 8:13am Cancer associated pain July 26, 2024 8:22am Nausea July 26, 2024 8:2 2am Squamous cell carcinoma of oropharynx [facility] 2024 8:22am Cancer associated pain August 02, 2024 7:29am Constipation August 02, 2024 7:2 9am Squamous cell carcinoma of oropharynx [facility] 2024 7:29am Thrush, oral August 02, 2024 7:2 9am Cancer associated pain August 09, 2024 7:51am Constipation August 09, 2024 7:5 1am Nausea August 09, 2024 7:5 1am Squamous cell carcinoma of oropharynx [facility] 2024 7:51am Squamous cell carcinoma of oropharynx [facility] 2024 9:23am Cancer associated pain [...] Admit Date Squamous cell carcinoma of oropharynx [facility] 2024 8:13am Cancer associated pain July 26, 2024 8:22am Nausea July 26, 2024 8:2 2am Squamous cell carcinoma of oropharynx [facility] 2024 8:22am Cancer associated pain August 02, 2024 7:29am Constipation August 02, 2024 7:2 9am Squamous cell carcinoma of oropharynx [facility] 2024 7:29am Thrush, oral August 02, 2024 7:2 9am Cancer associated pain August 09, 2024 7:51am Constipation August 09, 2024 7:5 1am Nausea August 09, 2024 7:5 1am Squamous cell carcinoma of oropharynx [facility] 2024 7:51am Squamous cell carcinoma of oropharynx [facility] 2024 9:23am Cancer associated pain [...] Admit Date Squamous cell carcinoma of oropharynx [facility] 2024 8:13am Cancer associated pain July 26, 2024 8:22am Nausea July 26, 2024 8:2 2am Squamous cell carcinoma of oropharynx [facility] 2024 8:22am Cancer associated pain August 02, 2024 7:29am Constipation August 02, 2024 7:2 9am Squamous cell carcinoma of oropharynx [facility] 2024 7:29am Thrush, oral August 02, 2024 7:2 9am Cancer associated pain August 09, 2024 7:51am Constipation August 09, 2024 7:5 1am Nausea August 09, 2024 7:5 1am Squamous cell carcinoma of oropharynx [facility] 2024 7:51am Squamous cell carcinoma of oropharynx [facility] 2024 9:23am Cancer associated pain [...] Admit Date Squamous cell carcinoma of oropharynx [facility] 2024 8:13am Cancer associated pain July 26, 2024 8:22am Nausea July 26, 2024 8:2 2am Squamous cell carcinoma of oropharynx [facility] 2024 8:22am Cancer associated pain August 02, 2024 7:29am Constipation August 02, 2024 7:2 9am Squamous cell carcinoma of oropharynx [facility] 2024 7:29am Thrush, oral August 02, 2024 7:2 9am Cancer associated pain August 09, 2024 7:51am Constipation August 09, 2024 7:5 1am Nausea August 09, 2024 7:5 1am Squamous cell carcinoma of oropharynx [facility] 2024 7:51am Squamous cell carcinoma of oropharynx [facility] 2024 9:23am Cancer associated pain August [...] [place] [address] [place] [id number] Referral ID Status Reason Start Date Expiration Date V isits Requested Visits Authorized [id number] Pending Review 02/16/2024 08/14/2024 1 1 Specialty Diagnoses / Procedures Referred By Contac t Referred To Contact MR IMAGING Diagnoses IPMN (intraductal papillary mucinous neoplasm) Procedures MRI 3D POST PROCESSING 3D RENDERING W/INTERP&POSTPROC [place] [address] [place] [id number] Mr Imaging [place] [address] Referral ID Status Reason Start Date Expiration Date Visits Requested Visits Authorized [id number] New Request Auto-Generat ed Referral 02/01/2024 03/02/2025 1 1 Specialty Diagnoses / Procedures Referred By Contac t Referred To Contact MR IMAGING Diagnoses IPMN (intraductal papillary mucinous neoplasm) Procedures MRI PANC/TRISH WO/W IVCON MRI ABDOMEN W/O & W/[place] [address] [place] [address] Mr Imaging [place] [address] Referral ID Status Reason Start Date Expiration Date Visits Requested Visits Authorized [id number] New Request Auto-Generat ed Referral 02/01/2024 03/02/2025 [...] section and content) DATE CREATED AUTHOR 02/08/2020 [facility] DATE CREATED AUTHOR AUTHOR'S ORGANIZ ATION 09/30/2022 [facility] DATE CREATED AUTHOR AUTHOR'S ORGANIZ ATION 02/04/2023 [facility] DATE CREATED AUTHOR AUTHOR'S ORGANIZ ATION 04/01/2024 [facility] DATE CREATED AUTHOR AUTHOR'S ORGANIZ ATION 04/19/2024 [facility] DATE CREATED AUTHOR AUTHOR'S ORGANIZ ATION 07/05/2024 [facility] DATE CREATED AUTHOR AUTHOR'S ORGANIZ ATION 07/21/2024 [facility] DATE CREATED AUTHOR AUTHOR'S ORGANIZ ATION 07/22/2024 [facility] DATE CREATED AUTHOR AUTHOR'S ORGANIZ ATION 09/03/2024 [facility] DATE CREATED AUTHOR AUTHOR'S ORGANIZ ATION 10/15/2024 [facility] DATE CREATED AUTHOR AUTHOR'S ORGANIZ ATION 10/31/2024 [facility] DATE CREATED AUTHOR AUTHOR'S ORGANIZ ATION 12/01/2024 [facility] DATE CREATED AUTHOR AUTHOR'S ORGANIZ ATION 12/27/2024 [facility] DATE CREATED AUTHOR AUTHOR'S ORGANIZ ATION 01/20/2025 [facility] DATE CREATED AUTHOR AUTHOR'S ORGANIZ ATION 02/17/2025 [facility] DATE CREATED AUTHOR AUTHOR'S ORGANIZ ATION 02/23/2025 [facility] REASON FOR VISIT (unrecogniz ed section and content) Reason Comments Consult PE Reason Comments Received Outside Medical Records Reason Comments Back Pain Dizziness Neck Pain Reason Comments Parotid mass Parotid mass Reason Comments MRI 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 Reason Comments Parotid Mass Follow [...] Malignant neoplasm of oropharynx, unspecified (CMS/HCC) Procedures [place] UNLISTED EVALUATION AND MANAGEMENT SERVICE Dennis Gray MD [address] [place] [address] Phone: tel: fax: Stacey Hinojosa, DO [address] [address] Phone: tel: fax: Referral ID Status Reason Start Date Expiration Date Visits Re quested Visits Authorized [id number] Closed 06/14/2024 12/11/2024 1 1 Reason Comments Follow-up Reason Comments urgent need for gastrostomy tube Reason Comments 1st pow gastrostomy tube placement Reason Comments Gastrostomy tube removal Specialty Diagnoses / Procedures Referred By Contac t Referred To Contact General Surgery Diagnoses Malignant neoplasm of oropharynx, unspecified (HCC) Procedures [place] UNLISTED [facility]ATION [facility] MANAGEMENT SERVICE Gelacio Paredes MD Phone: tel: fax: Veena Ross, DO [address] [address] Phone: tel: fax: Referral ID Status Reason Start Date Expiration Date Visits Re quested Visits Authorized [id number] Closed 12/26/2024 06/24/2025 1 1 Reason Comments [...] July 05, 2024 Dennis Gray MD Attending [facility] er, Other Provider Active Start: July 05, [...] tart: July 06, 2024 Dennis Gary MD Other Provider Active St art: July 06, 2024 Maribeth Hull MD Attending Provider Active Start: July 06, 2024 Team Status: Active Member Role Status Dates Demetrius Cooper MD Primary Care Provider Active Start: July 10, 2024 Mary Schneider MD Referring Provider Active S tart: July 10, 2024 Dennis Gray MD Attending [facility], Other Provider Active Start: July 10, [...] MD Admit Provider Active Start: A 2024 Yash Thomas MD Other Provider Active [...] Provider Active Start: June 20, 2024 Mary Shcneider MD Referring Provider Active S tart: June [...] Attending Provider Active Start: August 17, 2024 [facility] Ramin Faustin MD Other Provider Active Start: August [...] Demetrius Cooper MD Primary Care Provider Active FABIO Chavez Attending Provider Active Dip Dyer Relationship Specialty Start Date End Date Anjali Ruby CNP [address] [place] [address] Referring Family Medicine 03/03/23 Dip Dyer Relationship Specialty Start Date End Date Anjali Ruby CNP [address] [place] [address] Referring Family Medicine 03/03/23 Team Status: Inactive [...] September 02, 2023 End: September 02, 2023 Dip Dyer Relationship Specialty Start Date End Date Anjali Ruby CNP [address] [place] [address] Referring Family Medicine 03/03/23 Dip Dyer Relationship Specialty Start Date End Date Demetrius Cooper MD [address] [place] [address] PCP - General Family Medicine 01/26/24 Clarissa Corado MD [address] [place] [address] Referring Physician Neurology 08/03/23 Dip Dyer Relationship Specialty Start Date End Date Demetrius Copoer MD [address] [place] [id number] PCP - General Family Medicine 01/26/24 Clarissa Corado MD [address] [place] [address] Referring Physician Neurology 08/03/23 Dip Dyer Relationship Specialty Start Date End Date Demetrius Cooper MD [address] [place] [address] PCP - General Family Medicine 01/26/24 Clarissa Corado MD [address] [place] [id number] Referring Physician Neurology 08/03/23 Dip Dyer Relationship Specialty Start Date End Date Anjali Ruby CNP [address] [place], [place] [address] [address] Referring Family Medicine 03/03/23 Team Status: Inactive Member Role Status Dates Demetrius Cooper MD Primary Care Provider Active Start: February 29, 2024 End: February 29, 2024 Luc Ham Jr, MD Attending Provider Active Start: February 29, 2024 End: February 29, 2024 Dip Dyer Relationship Specialty Start Date End Date Demetrius Cooper MD [address] [place] [phone] PCP - General Family Medicine 01/26/24 Clarissa Corado MD [address] [place] [address] Referring Physician Neurology 08/03/23 Dip Dyer Relationship Specialty Start Date End Date Demetrius Cooper MD [address] [place] [address] PCP - General Family Medicine 01/26/24 Clarissa Corado MD [address] [place] [address] Referring Physician Neurology 08/03/23 Dip Dyer Relationship Specialty Start Date End Date Demetrius Cooper MD [address] [place] [address] PCP - General Family Medicine 01/26/24 Clarissa Corado MD [address] [place] [address] Referring Physician Neurology 08/03/23 Dip Dyer Relationship Specialty Start Date End Date Demetrius Cooper MD [address] [place] [address] PCP - General Family Medicine 03/27/24 Anjali Ruby CNP [address] [place] [address] Referring Family Medicine 03/03/23 Luc Ham MD [address] [phone] Ent - Otolaryngology 03/10/24 Dip Dyer Relationship Specialty Start Date End Date Demetrius Cooper MD [address] [place] [address] PCP - General Family Medicine 01/26/24 Clarissa Corado MD [address] [place] [address] Referring Physician Neurology 08/03/23 Dip Dyer Relationship Specialty Start Date End Date Demetrius Cooper MD [address] [facility] [place] [address] PCP - General Family Medicine 04/11/24 Dip Dyer Relationship Specialty Start Date End Date Demetrius Cooper MD [address] [facility] [place] [address] PCP - General Family Medicine 04/11/24 Dip Dyer Relationship Specialty Start Date End Date Demetrius Cooper MD [address] [facility] [place] [address] PCP - General Family Medicine 04/11/24 Dip Dyer Relationship Specialty Start Date End Date Demetrius Cooper MD [address] [facility] [place] [address] PCP - General Family Medicine 04/11/24 Team [...] June 14, 2024 End: June 14, 2024 Dip Dyer Relationship Specialty Start Date End Date Demetrius Cooper MD [address] [place] [address] PCP - [facility] Family Medicine 01/26/24 Clarissa Corado MD [address] [place], [facility] Referring Physician Neurology 08/03/23 Team Status: Active Member Role Status Dates Demetrius Cooper MD Primary Care Provider Active Start: June 20, 2024 Mary Schneider MD Referring Provider Active S tart: June 20, 2024 Dennis Gray MD Attending Provider Active Start: June 20, 2024 Dip Dyer Relationship Specialty Start Date End Date Demetrius Cooper MD [address] [place] [address] PCP - [facility] Medicine 01/26/24 Clarissa Corado MD [address] [place] [address] Referring Physician Neurology 08/03/23 Team Status: Active [...] Attending Provider Active Start: July 12, 2024 Talbi Faustin MD Active St art: July 12, [...] Active S tart: July 20, 2024 Dennis Gary MD Attending Provider Active Start: July 20, [...] Attending Provider Active Start: August 03, 2024 Tlaib Faustin MD Other Provider Active Start: August [...] Provider A ctive Start: August 20, 2024 Dip Dyer Relationship Specialty Start Date End Date Demetrius Cooper MD [address] [facility] [place] [address] PCP - General Family Medicine 04/11/24 Dip Dyer Relationship Specialty Start Date End Date Demetrius Cooper MD [address] [place] [phone] PCP - General Family Medicine 01/26/24 Clarissa Corado MD Referring Physician Neurology 08/03/23 Dip Dyer Relationship Specialty Start Date End Date Demetrius Cooper MD [address] [place] [phone] PCP - General Family Medicine 01/26/24 Clarissa [...] September 26, 2024 End: September 26, 2024 Dip Dyer Relationship Specialty Start Date End Date Demetrius Cooper MD [address] [place] [address] PCP - General Family Medicine 01/26/24 Clarissa Corado MD Referring Physician Neurology 08/03/23 Dip Dyer Relationship Specialty Start Date End Date Demetrius Cooper MD [address] [place] [address] PCP - General Family Medicine 01/26/24 Clarissa Corado MD Referring Physician Neurology 08/03/23 Dip Dyer Relationship Specialty Start Date End Date Demetrius Cooper MD [address] [place] [address] PCP - General Family Medicine 01/26/24 Clarissa Corado MD Referring Physician Neurology 08/03/23 Team Status: Inactive Member Role Status Dates Demetrius Cooper MD Primary Care Provider Active Start: October 03, 2024 End: October 03, 2024 Veena Ross DO Attending Provider Active Start: October 03, [...] November 23, 2024 End: November 23, 2024 Dip Dyer Relationship Specialty Start Date End Date Demetrius Cooper MD [address] [facility] [place] [address] PCP - General Family Medicine 04/11/24 Team [...] Provider Active S tart: December 26, 2024 rick Faustin MD Attending Provider Active Start: December 26, 2024 Dip Dyer Relationship Specialty Start Date End Date Demetrius Cooper MD [address] [place] [address] PCP - General Family Medicine 01/26/24 Clarissa Corado MD Referring Physician Neurology 08/03/23 Dip Dyer Relationship Specialty Start Date End Date Demetrius Cooper MD [address] [place] [address] PCP - General Family Medicine 01/26/24 Clarissa [...] or prosecute any alcohol or drug abuse patient.[facility] the event this information is protected by the Federal Confidentiality of Alcohol and Drug Abuse Patient Records regulations: The Federal rules restrict any use of the information to criminally investigate or prosecute any alcohol or drug abuse patient.[facility] HospitalIn the event this information is protected by the Federal Confidentiality of Alcohol and Drug Abuse Patient Records regulations: The Federal rules restrict any use of the information to criminally investigate or prosecute any alcohol or drug abuse patient.[facility] the event this information is protected by the Federal Confidentiality of Alcohol and Drug Abuse Patient Records regulations: The Federal rules restrict any use of the information to criminally investigate or prosecute any alcohol or drug abuse patient.[facility] Hospital[facility] the event this information is protected by the Federal Confidentiality of Alcohol and Drug Abuse Patient Records regulations: The Federal rules restrict any use of the information to criminally investigate or prosecute any alcohol or drug abuse patient.[facility] PRN Active and Recently Administ ered [...] BE BASED ON THE PRIMARY CLINICAL RECORDS. [facility] [employer], [facility]. provides no warranty or guarantee of the accuracy or completeness of information in this document.
== END 2025-02-23 08:28 | disposition home or self-care (01) ==
LOC: RAD 08:31
PROVIDERS: PCP Family Medicine; Visit Provider Nurse Practitioner
DX: M54.50 Low back pain, unspecified (principal); M46.1 Sacroiliitis, not elsewhere classified; M51.369 Other intervertebral disc degeneration, lumbar region without mention of lumbar back pain or lower extremity pain
CPT/HCPCS: 72114

== ENCOUNTER 2025-03-07 10:30 | Outpatient (OUT) | payer MEDICARE, SELFPAY ==
--- OUTSIDE RECORDS SUMMARY | 2025-02-22 06:09 | XMS_ITS | Continuity of Care Document ---
Author Organization [facility] [place] Address [address] [place] [address] Phone Care Team Providers Care General Administrator Name Role Phone Demetrius Mirza MD Primary Care Provider [phone] Becky Crouch APRN Attending Provider Mary Schneider MD Referring Provider Talib Faustin MD Attending Provider [phone] Care Teams Patient Care Team Team Status: Active Member Role Status Dates Demetrius Mirza MD Primary Care Provider Active Visit Care Team Team Status: Inactive Member Role Status Dates Demetrius Mirza MD Primary Care Provider Active Start: December 26, 2024 End: December 26, 2024Stefanie Garnica ProviderActive Start: December 26, 2024 End: December 26, 2024 Patient Care Team Team Status: Inactive Member Role Status Dates Demetrius Mirza MD Primary Care Provider Active Start: February 22, 2025 End: February 22, 2025Stefanie Garnica ProviderActive Start: February 22, 2025 End: February 22, 2025 Visit Care Team Team Status: Active Member Role Status Dates Demetrius Mirza MD Primary Care Provider Active Start: February 22, 2025 Samantha Harley ProviderActiveStart: February 22, 2025 Glynn Tolliverending ProviderActiveStart: February 22, 2025 Chief Complaint and Reason for Visit Chief Complaint Admit Date Follow Up 3 Months, H+N February 22 9:41am Mal Miguel base of tongue February 22, 2025 9:42am Reason for Visit Admit Date Squamous cell carcinoma of oropharynx Au migdalia 2024 12:32pm Squamous cell carcinoma of oropharynx Oc tober 2024 9:41am Allergies, Adverse Reactions, Alerts Allergen Type Severity Reaction Last Updated Verified Status adhesive Allergy Unknown rash February 22, 2025 9:52am Yes Active niacin Allergy Unknown hives February 22, 2025 9:52am Yes Active Social History Smoking Status Status Start Date End Date Date of Observa tion Never smoked tobacco (finding) November 23, 2024 7:50am Observation Status Observation Response Date of Response Legal Sex [facility] (finding) [facility] 1940 Family History Relationship Condition Age at Onset Recorded Date/T olivia father Unknown GlaucomaUnknownmotherHeart diseaseUnknownDeceasedUnknownHistory of strokeUnknown HypertensionUnknownPulmonary emphysemaUnknownEnd-stage renal diseaseUnknown sisterDeceasedUnknownMalignant neoplasmUnknownLymphomaUnknown Problems Active Problems Medical Problem Onset Date Status Comments Squamous cell carcinoma of oropharynx Unknown Act rosa Hypnotic dependenceUnknownActiveObstructive sleep apneaUnknownActiveOther acute postprocedural painUnknownActiveDiabetic neuropathyUnknownActiveThrush, oral UnknownActiveDM (diabetes mellitus)UnknownActiveCentral sleep apneaUnknownActive CAD (coronary artery disease)UnknownActiveCoronary artery diseaseUnknownActive HypercholesteremiaUnknownActiveCancer associated painUnknownActiveVentricular tachycardiaUnknownActiveEssential hypertensionUnknownActivePolyneuropathy associated with underlying diseaseUnknownActiveEncounter for palliative care UnknownActiveNauseaUnknownActiveNauseaUnknownActiveConstipationUnknownActive Secondary to opioids, and decreased oral intakeVitamin D deficiency, unspecified UnknownActiveExcessive daytime sleepinessUnknownActiveInactive/Resolved Problems Medical Problem Onset Date Status Comments Immunosuppression Unknown Resolved FeverUnknownResolvedLung noduleUnknownResolvedPneumoniaUnknownResolved ConstipationUnknownResolved Medications Medication Status Dose Units Route Directions Qty Days St art Date Stop Date End Date Instructions Adherence Magic Mouthwash W/Lidocaine 240 Ml Bottle 240 mL bottle Discontinued 10 ML PO Four times daily as needed for mucositis 240 July 06, 2024 1:00amApril 2024 10:15amTake 10ml by mouth, four times a day, as needed. SWISH AND SWALLOW.Magic Mouthwash W/Lidocaine 240 Ml Bottle 240 mL zwudrwBqyoqfrdbtfg36DEEGAcwf times daily as needed for ugqvwiqlu121Lwzgj 5th, 2025 1:00amApril 2024 6:07pmTake 10ml by mouth, four times a day as needed. SWISH AND SWALLOW.Oxycodone 5 mg/5 mL fxujkohgRrywuhrnbxwi8PZCTTOIYD 4-6 HOURS as needed for ptjj01611Ggyof 2024[facility] 2024 9:18amFentanyl 12 mcg/hr patch 72 vvlmNklbysdyfain4DTZPQERKZZDSAVIFmmca 72 tmzhx464Bcllq pr2024 9:47amNystatin 100,000 unit/mL dvujqzbgrsEpojmtsaacbh598620 UNITPOFour times dvlqr37479Txxbv 2024 12:00amApril 2024 6:07pm administer 1/2 of dose in each side of the mouthLactulose 10 gram/15 mL solution Evqfmqjhzsww19ZLZOIxcga as needed for zujkdnioyfwu74967Pjfdm 2024 12:00am August 20, 2024 6:06pmuse everyday until you have a bowel movement daily. Sennosides (Black-Draught Lax-Senna) 8.6 mg tabletDiscontinued8.6MGPOTwice daily as needed for uwusviqfpbrf1102Sibig 2024 12:00amJuly 2024 10:02amUse if no bowel movement dailyClotrimazole 10 mg evmkgyDiaeirylxjzv23UTHZJAZX MEM Five times oqdaa3930Thtrl2024 12:00amApril 2024 11:32amuse for 10 days, if symptoms persist, then complete the 14 days dispensedOxycodone 5 mg/5 mL oixeoycpSinmnygujvtj9WUSTHSBEX 4-6 HOURS as needed for aoku43015Xzvty pril 2024 9:47amNystatin 500,000 unit ppzgrvYvkqnhyugsbt576880RSCDHD Four times rreym4689Wsenb 2024 12:00amMay 2024 9:27amSilver Sulfadiazine (Silvadene) 1 % vixhcIqdjmzooisbl1YXINCXCKVBHVDKiubc btfwq15Ttjer 2024 12:00amMay 2024 10:25amApply to open areas on radiation site, twice a day, until healed.Sucralfate 100 mg/mL cnkcpqpihfBrsvuypidrmm57BPTYXezwo times kfmrl42961Mtq 2024 12:00amMay 2024 10:26amNystatin 500,000 unit zxmmxgAxktmsuquhqj043235XNYTGSIecb times sxvqu0937Kqr 2024 9:24amJuly 2024 10:01amOxycodone 5 mg/5 mL ombvjckmJqmdjikvkzoh65NMRKOalyn 4 hours as needed for szij26038Pee 2024July 2024 10:01amTizanidine 4 mg tablet Liakqc6GOWssit lpzbnnh0946Vkxw 2024 11:33am1/2-1 tablet orally every evening;UnknownFluticasone Propionate 50 mcg/actuation spray,suspensionActive2 SPRAYINTRANASALEvery morningFebruary 2024 1:00amFreeTextSig: Nasal; Note: Source Status: Taking; Qty: 16 Unspecified; Provider: Boy Jaquez (NPI: [id number])UnknownPsyllium Husk (Fiber (Psyllium Husk)) 0.4 gram capsule Discontinued0.4GMPODailyFebruary 2024 1:00amApril 2024 6:08pmOxycodone 5 mg/5 mL knabdabfOcrndadcofpw6ZVMWDUVIS 4-6 HOURS as needed for auhy71063Dqpwp 2024March 2024 11:31amHydrocodone-Acetaminophen 5-325 mg tablet Ryikpnzowfew3ZLRSDAitha 12 hours as needed for qkdy54Dsoyq 2024March 2024 9:43amOxycodone 5 mg/5 mL xobkpeflCeaxcwuhmimj70HPMXQjvaj 4 hours as needed for uqsw63850Estyq 2024May 2024 3:02pmFentanyl 12 mcg/hr patch 72 hour Pjfssqzciemo3UNLXUTEJPUDCYVSYwqoz 72 kgwgm512Mujzb pril 2024 10:11amCefpodoxime 200 mg milktuFruwkqiqewuw536DKFZCzrjh pltjr60Tyvbr 2024 12:00amMay 2024 10:22ammust administer with a meal/foodPolyethylene Glycol 3350 (Miralax) 17 gram/dose glxnfyUfhqte61XUYVDiahr079Wgs 2024 12:00am UnknownLidocaine-Prilocaine 2.5-2.5 % howgzKmjusmhvfrzq7QUFFRGJZVVknt as needed for rwpu67Zyyjijod 2024 2:08pmMay 2024 10:23amApply 1 hour prior to accessing port.Olanzapine 2.5 mg tabletDiscontinued2.5MGPOTwice sxxyu35Uigpq 2024 12:00amJuly 2024 10:02amAlbuterol Sulfate 90 mcg/actuation aerosol powdr breath zuqirnbpiYyxhzjbpnvkc9ZFGLUDKKHVTSSZLGGW 4-6 HOURS as needed for shortness of breath or wheezingJanuary 2024 1:00amMay 2024 10:77ivGdtemrs-Gsfzcpwiswsir-Tkapomki (Excedrin Migraine) 250-250-65 mg ckxzcpVqhhospclrvg3WCWJDKVNVD 4-6 HOURS as needed for painJanuary 2024 1:00amApril 2024 6:05pmMetformin 500 mg mofbkyZjpest758GZEJHdayf morning June 14, 2024 1:00amUnknownOmeprazole 40 mg capsule,delayed release(DR/EC) Whydsu38AOMJYgsxg morningJanuary 2024 1:00amUnknownMultivitamin (Multiple Vitamins) eliugsCfxjlw4WIZLJDxlfhDfxusdy 2024 1:00amUnknownAspirin 81 mg tablet,doacefnhLufqaj32MALMXfoiyDniagmk 2024 1:00amUnknownDiphenhydramine- Acetaminophen (Tylenol Pm Extra Strength) 25-500 mg ctdjkbDcovjwiqwtqg2VRBRQ Daily at bedtime as needed for sleepJanuary 2024 1:00amApril 2024 6:05pmProchlorperazine Maleate (Compazine) 10 mg wobhczUkznwbcoswhi28MJQMJytdy 8 hours as needed for nausea and jbqkwryj13Aotxsta 2024 1:00amMarch 2024 9:43amOndansetron 8 mg tablet,abjewzhracxjnzHjysar5JFBOMbjpn 8 hours as needed for nausea and pizmutto57Dofpzmv 2024 1:00amUnknownDoxycycline Monohydrate 100 mg hvkrghdGqnevioueuhk249CHOZBlwvd dailyFebruary 2024 1:00amApril 2024 6:05pmFerrous Sulfate (Ferosul) 325 mg (65 mg iron) tablet Reiotd606YYKQWiojp dailyOctober 2024 12:00amUnknownDorzolamide 2 % drops Reglsb4WUVBTIHQPHCSYQYFjdbz dailyMarch 2023 12:00amUnknownLatanoprost 0.005 % andgiHurcno7PULAJVPAMGBUDETWwwxx eveningMarch 2023 12:00amUnknown Furosemide 20 mg tmxhqcLtxddt90WXTTWetxn morningMarch 2023 12:00amUnknown Famotidine 20 mg xsimwuFecrir12NBIVCfsvu eveningMarch 2023 12:00amUnknown Tizanidine 4 mg exmvtyDheegozeeswy4VNWXBwdrx eveningMarch 2023 12:00amJuly 2024 11:34amIsosorbide Mononitrate 30 mg tablet extended release 24 hr Pkrxwayteskz11SZUSFxhap morningMarch 2023 12:00amMarch 2024 8:42am Rosuvastatin 10 mg svwkxqIvllbk40VLRRSvrsj eveningMarch 2023 12:00am UnknownAmlodipine 5 mg pvoaxdGsdspx2TWPCQtlsb morningMarch 2023 12:00am UnknownClopidogrel 75 mg lyplguXcdsgc04DFZOSmsfoHugew 2023 12:00amOn Hold: Resume on 10/04/24.UnknownZonisamide 25 mg rpnedanDkxrey11KYKCNyucl dailyMar 2023 12:00amUnknownIrbesartan 300 mg bfibnsMiosmk387RRCNQmvdd morningMar 2023 12:00amUnknownSotalol 80 mg sfntnhAvwyup47FFCTDeldv dailyC[facility] 2023 12:00amUnknownMometasone 0.1 % grizmNejjnjwpzufk0OPILGQPNYMVBDZfbei30 June 14, 2024 1:00amApril 2024 6:07pmApply to radiation site, once a day, AFTER radiation treatments.Amlodipine 5 mg giwpwoMkwouljolqbd7VRZAVjsjc July 20, 2024 1:00amMarch 2024 8:39amClopidogrel (Plavix) 75 mg tablet Aquzibtoinpu08MKOFBfoacQkutu 2024 1:00amMarch 2024 8:40amDorzolamide 2 % svaliInkooilqieyk9PPCASCSW-QPVFMgcik times dailyC[facility] 2024 1:00amMarch 2024 8:40amFamotidine 20 mg hleblyBfsaxkhbxxrn48QUCUBaxhcEmssb 2024 1:00amMarch 2024 8:41amFurosemide 20 mg lnxhrjSoentinzrvyj94GFJMKksnh morningMar 2024 1:00amMarch 2024 8:41amIrbesartan 300 mg tablet Xgcssdbadbko743KFBRKwqxk morningMar 2024 1:00amMarch 2024 8:41am Isosorbide Mononitrate 30 mg tablet extended release 24 rsLutbgd97WCQVVzaez morningMar 2024 1:00amUnknownLatanoprost 0.005 % bmppqRdccctnvbbsp0TUHBZ EYE-BOTHEvery eveningMar 2024 1:00amMarch 2024 8:42amRosuvastatin 10 mg wmxndcTevyuqrzruls61GGPZPgrxl eveningMar 2024 1:00amMarch 2024 8:44amSotalol 80 mg yhzhtpEhtnbroyqguk30UPVKZyjup dailyMar 2024 1:00amMarc2024 8:44amTizanidine 4 mg dzrabonNljjcgjhakok3FLPDCerfr evening as neededC[facility] 2024 1:00amMarc2024 8:45amZonisamide 25 mg ecwzcwhEhbojjgilfkp90WICCFxloc dailyC[facility] 2024 1:00amMarch 2024 8:45amAlbuterol Sulfate 90 mcg/actuation aerosol powdr breath activated Mqgaonktatay5DWVKANQYRPXBFOJTST 4-6 HOURS as neededC[facility] 2024 1:00amMarc2024 8:39amAspirin 81 mg tablet,aqzxuwbdFzzfqdyxibdx87YGHVLdqqiPhjva 2024 1:00amMarch 2024 8:20djPggyutj-Qhdodzrplfpap-Mufafezx (Excedrin Migraine) 250-250-65 mg osnzlkOtobvzzvvbgv4HQGTMMTAIP 4-6 HOURS as neededC[facility] Clinic [facility] 2024 1:00amMarc2024 8:40amDiphenhydramine-Acetaminophen (Tylenol Pm Extra Strength) 25-500 mg ygxvueEqdkhcehoyuy5SUVNUQmbai at bedtime as needed July 20, 2024 1:00amMarc2024 8:40amMetformin 500 mg tabletDiscontinued 500MGPOEvery morningCrystal Clinic [facility] 2024 1:00amMarc2024 8:43amMometasone 0.1 % zimusFowygrywkhzq6FANGQVHZZNNVWKhfuoSotxv 2024 1:00amMarc2024 8:43amMultivitamin (One Daily Multivitamin) yqycbyAqffevaaixqf6AVGNNQximeDduoa 2024 1:00amMarc2024 8:43amOmeprazole 40 mg capsule,delayed release(DR/EC)Qdeazwmiglsr20ONPONmwlq morningCrystal Clinic Orth[facility] Center 2024 1:00amMarc2024 8:43amOndansetron 4 mg tablet,fpqinrxmzceschStycnzsypwri6HAWYYpdbw 8 hours July 20, 2024 1:00amMarc2024 8:43amProchlorperazine Maleate (Compazine) 10 mg kcslrwQhvpcnqewzoc05LPLVWvucs 8 hours as neededC[facility] 2024 1:00amMarch 2024 8:44amFluticasone Propionate 50 mcg/actuation spray,hlvqgyrnxbHwmsdhngptpr4SMUCSEXPSNFPUZFQrcseOgjnk 2024 1:00amMarc 2024 8:41amadminister into each nostrilPsyllium Husk (Fiber (Psyllium Husk)) 0.4 gram capsuleDiscontinued0.4GMPODailyCrystal Clinic Orth[facility] Center 2024 1:00amMarc 2024 8:44amDoxycycline Monohydrate 100 mg froxywmLnxxiyhocpcd799RMWUZcvip daily July 20, 2024 1:00amMarch 2024 8:40amLidocaine-Prilocaine 2.5-2.5 % ufjfdPmqbknobxzce8JVAXGGKVUko neededCrystal Clinic Orthopedic Center 2024 1:00amMarch 2024 8:42amHydrocodone-Acetaminophen 5-325 mg ztpyeuMpztcspiotzt6BDGOPDbcab daily as neededCrystal Clinic Orthopedic Center 2024 1:00amMarch 2024 8:41amMagic Mouthwash W/Lidocaine 240 Ml Bottle 240 mL bottleDiscontinuedMLPOFour times daily as kjdmhl417Elybn 2024 1:00amMarch 2024 8:42amOxycodone 5 mg/5 mL solutionDiscontinued5 MGPOEVERY 4-6 HOURS as neededC[facility] 2024 1:00amMarch 2024 8:44am Potassium Chloride (Klor-Con M20) 20 mEq tablet,ER particles/crystals Kwxumzgexpxf93JUFXVRxssm ahwlk97Fuqgm 2024 12:00amMay 2024 10:25am Magic Mouthwash W/Lidocaine 240 Ml Bottle 240 mL filgnbJvmbvzjpuysp27OUIECwzp times daily as needed for uwxktuzze520Ntjwg 2024 10:14amMay 2024 10:23amTake 10ml by mouth, four times a day, as needed. SWISH AND SWALLOW. will call when they need refill Immunizations Immunization Event Date Not Given Reason Dose Number Development Spec Lot Number Vaccine Information Statement (VIS) Detail Administration Location COVID-19 mRNA, Comirnaty (Pfizer) June 06, 2020 COVID-19 mRNA, Comirnaty (Pfizer)June 27OVID mRNA, Comirnaty (Pfizer)March 06OVID Comirnaty (Pfizer) Tri-Sucrose 12+November 25OVID-19 (PFIZER) 12Y and olderDecember 2022Fluzone TIV High-Dose 65YR+April 17, 2024 Medical Equipment Device Date Implanted Device Details Vascular port/catheter July 17, 2024 ALEKSANDR: [id number] Issuing Agency: [employer] Device Id: [id number] Expiration Date: 2025-08-14 Lot Number: [id number] Procedures Procedure Date Performed Status PET tumor subq tx strat sb-mt November 13, 2024 12 :26pm completed Relevant Diagnostic Tests and/or Laboratory Data Laboratory Results Test Collection Date/Time Result Date/Time Result Interpretation Reference Range Result Comment Performing Site Corrected White Blood Count November 13, 2024 12:40pm November 13, 2024 1:07pm 8.5 10*3/uL 4.1-10.5[facility] [id number] [address] [place] [address] 76571Cbwunmepqso WBC CountJun2024 12:40pmJun2024 1:07pm8.5 10*3/uL4.1-10.5FPark[facility] [id number] [address] [place] [address] 27789Dhg Blood CountJun2024 12:40pmJun2024 1:07pm 4.11 10*6/uL3.90-5.60[facility] [id number] [address] [place] [address] 61568WqdvglnoozQzcr 30th, 2025 12:40pmJun2024 1:07pm12.8 g/dLBelow low qvkqef86.0-17.0[facility] [id number] [address] [facility] 36[address]LvazenydzaWebh 2024 12:40pmJune 2024 1:07pm38.5 % Below low fuadkm17.8-50.0[facility] [id number] [address] [facility] 78555Jxhs Corpuscular VolumeJune 2024 12:40pmJune 2024 1:07pm93.7 fL83.5-101[facility] [id number] [address] [facility] 74443Mxmy Corpuscular HemoglobinJune 2024 12:40pmJune 2024 1:07pm31.1 pg27.5-35.2FParkview [facility] [id number] [address] [facility] 392[address]Ariu Corpuscular Hemoglobin ConcentJune 2024 12:40pmJune 2024 1:07pm33.2 g/dL32.5-35.6FPark[facility] [id number] [address] [facility] 223[address]Doa Cell Distribution WidthJune 2024 12:40pmJune 2024 1:07pm14.7 %12.0-14.8[facility] [id number] [address] [facility] 56223Xwdfanwd CountJune 2024 12:40pmJune 2024 1:86qf733 10*3/tD842-471BollqrstnThe [facility] [id number] [address] [facility] 55256Sdpp Platelet VolumeJune 2024 12:40pmJune 2024 1:07pm8.4 fL6.6-10.1FPark[facility] [id number] [address] [facility] 16939Rmkynklwvml (%) (Auto)November 13, 2024 12:40pmJune 2024 1:49pm65.3 %.[facility] [id number] [address] [facility] 83738Ggfduvflkhs (%) (Auto)November 13, 2024 12:40pmJun2024 1:49pm22.1 %.[facility] [id number] [address] [facility] 74452Qnbiojgsn (%) (Auto)November 13, 2024 12:40pmJun2024 1:49pm9.2 %.[facility] [id number] [address] [facility] 47323Rdkvrbiavkj (%) (Auto)November 13, 2024 12:40pmJun2024 1:49pm2.9 %.[facility] [id number] [address] [facility] 08984Elejukker (%) (Auto)November 13, 2024 12:40pmJun2024 1:49pm0.5 %.[facility] [id number] [address] [facility] 27781Mhurelueq RBC Relative Count (auto)November 13, 2024 12:40pmJun2024 1:49pm0.2 /100{WBC}0-0.5FPark[facility] [id number] [address] [facility] 59719Jgpgictofzv # (Auto)November 13, 2024 12:40pmJun2024 1:49pm5.6 10*3/uL1.8-7.7FPark[facility] [id number] [address] [facility] 620[address]Fsoxmzeejaj # (Auto)November 13, 2024 12:40pmJun2024 1:49pm1.9 10*3/uL1.00-4.8[facility] [id number] [address] [facility] 85668Gpiohvgwt # (Auto)November 13, 2024 12:40pmJun2024 1:49pm 0.8 10*3/uL0.0-0.8[facility] [id number] [address] [facility] 076[address]Npxlypgwosk # (Auto)November 13, 2024 12:40pmJun2024 1:49pm0.2 10*3/uL0.0-0.45[facility] [id number] [address] [facility] 84625Ehgrulfzb # (Auto)November 13, 2024 12:40pmJun2024 1:49pm 0.0 10*3/uL0.0-0.2FParkview [facility] [id number] [address] [facility] 58571Mwy Blood Cell MorphologyJune 2024 12:40pmJune 2024 1:49pmNormalNormWVUMedicine [facility] [id number] [address] [facility] 67[address]Okpcwyyn EstimateJun2024 12:40pmJun2024 1:49pm NormalNormWVUMedicine [facility] [id number] [address] [facility] 64253Inqjcuxd Morphology CommentJun2024 12:40pmJun2024 1:49pmNormalNormWVUMedicine [facility] [id number] [address] [facility] 38471Rvwifbr LevelJun2024 12:40pmJun2024 1:36lr711 mg/dLAbove high zgtxvi26-167ELQ recommended reference rangeRandom Glucose Reference Range is dependent on time and content of last meal. Glucose of more than 200 mg/dL in a nonstressed, ambulatory subject supports the diagnosisof Diabetes Mellitus.[facility] [id number] [address] [facility] 72773Awgtg Urea NitrogenJun2024 12:40pmJun2024 1:24pm29 mg/dLAbove high normal7-25[facility] [id number] [address] [facility] 762[address]ShoqswfjraGlgy 30th, 2025 12:40pmJun2024 1:24pm0.80 mg/dL0.70-1.30[facility] [id number] [address] [facility] 01287Vnbptihhw GFR (CKD-EPI)November 13, 2024 12:40pmJun2024 1:24pm> 60.0 mL/MinThe [facility]tr [id number] [address] [facility] 200[address]Hcpoqq LevelJune 2024 12:40pmJune 2024 1:70ef300 mmol/Q991-094ChbrkqbgtThe [facility] [id number] [address] [facility] 87332Thhgmoqtg LevelJune 2024 12:40pmJune 2024 1:24pm4.2 mmol/L3.5-5.1FParkview [facility] [id number] [address] [facility] 87273Pqvecvwd LevelJune 2024 12:40pmJune 2024 1:12wf979 mmol/W10-588YqwrtqfeyThe [facility] Hospital [facility]tr [id number] [address] [place] 2113470Carbon Dioxide LevelJune 2024 12:40pmJune 2024 1:24pm26.6 mmol/L21.0-31.0[facility] [id number] [address] [place] 2113470Anion GapJune 2024 12:40pmJune 2024 1:24pm10.6 mEq/L6.0-15.0[facility] [id number] [address] [place] 2113470Calcium LevelJune 2024 12:40pmJune 2024 1:24pm9.3 mg/dL8.6-10.3FParkview [facility] [id number] [address] [facility] [address]Vdcqsgiet LevelJune 2024 12:40pmJune 2024 1:24pm2.1 mg/dL1.9-2.7FParkview Health [facility] [id number] [address] [place] 2113470Total ProteinJune 2024 12:40pmJune 2024 1:24pm7.3 g/dL6.4-8.9[facility] [id number] [address] [facility] 79074KxsyskbZqfp 2024 12:40pmJune 2024 1:24pm4.2 g/dL 3.5-5.7FParkview Health [facility] [id number] [address] [facility] 76[address]SvefhqvbRgow 30th, 2025 12:40pmJun2024 1:24pm3.1 g/dL [facility] [id number] [address] [facility] 97677Ndnryzz/Globulin RatioNovember 13, 2024 12:40pmNovember 13, 2024 1:24pm1.4FParkview Health [facility] [id number] [address] [facility] 65370Nslhx BilirubinJun2024 12:40pmJun2024 1:24pm0.4 mg/dL0.3-1.0[facility] [id number] [address] [facility] 21318Qxeilvbrm Amino Transf (AST/SGOT)November 13, 2024 12:40pmJun2024 1:24pm15 U/R70-99RbhwsmumiThe Christ Hospital [facility]tr [id number] [address] [facility] 87617Bzqimtk Aminotransferase (ALT/SGPT)November 13, 2024 12:40pmJun2024 1:24pm14 U/L7-52[facility] [id number] [address] [facility] 26544Raomwrfv PhosphataseJun2024 12:40pmJun2024 1:24pm80 U/F42-028CdcdikrnbThe [facility] Hospital [facility]tr [id number] [address] [facility] 68773Peovjkxw Creatinine Clearance (ChemJun2024 12:40pmJun2024 1:24pm60.92[facility] [id number] [address] [facility] 08783Krlcqkc GlucoseJun2024 12:36pmJun2024 1:59ka710 mg/dLRandom Glucose Reference Range is dependent on time and content of last meal. Glucose of more than 200 mg/dL in a nonstressed, ambulatory subject supports the diagnosis of Diabetes Mellitus.Point of Care testing Diagnostic Imaging Reports Author Mario Urias [facility] CenterAuthoredJune 2024 3:39pmReportDictated Date/TimeDictated ByStatusRadiology ReportJune 2024 3:39pmMario Urias Jr [facility] [place] [address] [place] [address] Nuclear Medicine Report Signed Patient: Jair Bennett MR#: [id number] : 1940 Acct:[id number] Age/Sex: 84 / M ADM Date: 5 Loc: XT Room: Type: [facility] RCR Attending Dr: Talib Faustin MD Copies to: Mario Urias Jr, DO Mary K Demboske, APRN Mhd Yaser Al-Marrawi, MD Norleena Poynter, MD~ Ordering Provider: Becky Crouch APRN Date of [...] Jr., D.OAidan 11/13/2024 3:50 PM Dictation Location: [place] [address] Transcribed By: [facility] 11/13/24 [id number] Dictated By: Mario Urias Jr, DO 11/13/24 1539 Signed By: <Electronically signed by Mario Urias Jr, DO in [place]> 11/13/24 1550 Vital Signs Vital Reading Result Reference Range Collection Date/Time Weight 72.12 kg December 26, 2024 1:81yeYpvtry41 [in_i]October 04, 2024 2:00vhLeftdk52.12 kggus2024 1:08pmBody Aqixlwitxhj36.3 [degF]97.6-99.0April 2024 8:23am Heart Rate90 /szs25-310Atwka 2024 8:23amRespiratory rate18 /tgc26-25Bqhrr 2024 8:23amOxygen saturation by Pulse %95-100Apr2024 8:23amBP Aqonlnlg126 mm[Hg]100-140April 2024 8:23amBP Detyyizwr53 mm[Hg] 60-100April 2024 8:23am Advance Directives Advance Directive Response Recorded Date/ Time Advance Directives Yes July 26 8:22am Insurance Providers Guarantor Annabelle Lizama Address [address] [place] [id number] Info.Home Phone: Payer Policy Id Subscriber's Name Subscriber Id Effectiv e Date Expiration Date [employer] Medicare Advantage PFFS [id number] Annabelle Lizama [id number] Encounters Encounter Location(s) Arrival/Admit Date Discharge/Depart Date Provider(s) Departed Physician/Prov ider [facility] December 26, 2024 12:32pm December 26, 2024 1:25pm Becky Crouch APRN Departed Physician/Prov ider Office Visit [facility] February 22, 2025 9:41am February 22, 2025 10:08am Becky Crouch APRN Registered Recurring -[facility] Acute February 22, 2025 9:42am Talib Faustin MD Recent Diagnosis Onset Date Admit Date Squamous cell carcinoma of oropharynx Unknown December 26, 2024 12:32pm Squamous cell carcinoma of oropharynx Unknown February 22, 2025 9:41am Assessments Diagnosis Onset Date Resolution Status Admit Date Squamous cell carcinoma of oropharynx acuteAugus2024 12:32pmSquamous cell carcinoma of oropharynxacuteOct2024 9:41am Plan of Treatment Author [facility] HospitalAuthoredOctober 2024 9:55am Return to clinic in 6 months with [employer] Assessment: 84-year-old male with stage II T1 [...] in 33 fractions to the gross disease with approximately 50-52 Haque to the elective neck. Posttreatment PET November 13, 2024 is negative. We are pleased with his progress and he continues to have no issues with oral intake. PEG tube was removed last month. Author [facility] HospitalAutredAugusalonzo 2024 1:41pm Refer for G-tube removal Return to clinic [...] in 33 fractions to the gross disease with approximately 50-52 Haque to the elective neck. Returns to clinic today with posttreatment PET from November 13, 2024 which is negative. We are pleased with his progress and he continues to have no issues with oral intake. The G-tube was placed by surgery here at [facility] and patient is hopeful to have this removed now that his weight is maintaining without any tube feeds over the last 2+ weeks. We will refer him back for removal and will see him back in February 2025 for physical exam. Future Tests Future scheduled test information is unavailable Pending Tests Pending diagnostic test information is unavailable Future Visits Future appointment information is unavailable Referrals to Other Providers Referral information is unavailable Future Procedures Procedure Name Ordered Date Scheduled Date ANC>=1500 July 20, 2024 10:08am July 62024 1:00am ANC>=1500 August 09, 2024 10:04am August 172024 12:00am If ANC<1000 or Platelets<80, 000 Omit Dose July 20, 2024 10:08am July 27, 2024 12:00am If ANC<1000 or Platelets<80, 000 Omit Dose July 20, 2024 10:08am August 03, 2024 12:00am Hold & Call Ordering Physici an if Pt Does Not Meet Criteria August 09, 2024 10:04am August 17, 2024 12:00am Hold & Call Ordering Physici an if Pt Does Not Meet Criteria July 20, 2024 10:08am July 20, 2024 1:00am Apply O2 via Nasal Cannula 4 L to Maintain SpO2 of >=90% July 20, 2024 10:08am July 20, 2024 1:00am Apply O2 via Nasal Cannula 4 L to Maintain SpO2 of >=90% July 20, 2024 10:08am July 27, 2024 12:00am Apply O2 via Nasal Cannula 4 L to Maintain SpO2 of >=90% July 20, 2024 10:08am August 03, 2024 12:00am Apply O2 via Nasal Cannula 4 L to Maintain SpO2 of >=90% August 09, 2024 10:04am August 17, 2024 12:00am Orders Panel Function Communication Order July 20, 2024 1:32pm July 20, 2024 1:32pm Orders Panel Function Communication Order August 03, 2024 1:41pm August 03, 2024 1:41pm Orders Panel Function Communication Order August 03, 2024 1:42pm August 03, 2024 1:42pm Orders Panel Function Communication Order August 09, 2024 2:14pm August 09, 2024 2:14pm Orders Panel Function Communication Order August 09, 2024 2:15pm August 09, 2024 2:15pm Orders Panel Function Communication Order June 30, 2024 2:57pm June 30, 2024 2:57pm Orders Panel Function Communication Order August 03, 2024 1:44pm August 03, 2024 1:44pm Orders Panel Function Communication Order August 09, 2024 2:16pm August 09, 2024 2:16pm Platelets>=100,000 August 09, 2024 10:04am Apri l 2024 12:00am Platelets>=100,000 July 20, 2024 10:08am July 20, 2024 1:00am Future Medications Future medication information is unavailable Patient Instructions Patient instructions are unavailable Goals Acute Goals Author Authored Date Maintain/increase activity l evels * Understands factors that may lead to activity intolerance * Helps perform self care activities * Maintains maximum range of motion * Increase/regain muscle mass and strength * Maintains VS WNL during activity * Maintain intact skin integrity Updated: 3C[facility] [facility] 2024 8:12am
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
--- OUTSIDE RECORDS SUMMARY | 2025-03-07 10:34 | XMS_ITS | Encounter Summary ---
Author Organization [facility] Address [address] [place] [address] Care Team Providers Care Bar Examiner Name Role Phone Yajaira Roque DISPLAY AND BANNER DESIGNER-C Primary Care Provider [phone] Reason for Visit * ReasonCommentsMed Refill Encounter Details DateTypeDepartmentCare Team (Latest Contact Info)Kvivwcijejk58/21/2025Refill [facility] [address] [place] [address] Daniel Brunner MD [address] [place] [address] Mitral valve insufficiency, unspecified etiology Social History Tobacco UseTypesPacks/DayYears UsedDateSmoking Tobacco: FormerCigarettesQuit: 1984Smokeless Tobacco: NeverAlcohol UseStandard Drinks/WeekCommentsYes0 (1 standard drink = 0.6 oz pure alcohol)OCCASIONALUT Safety & EnvironmentAnswerDate RecordedFear of Current or Ex-PartnerNot on file07/08/2023Emotionally AbusedNot on file4Physically AbusedNot on 07/08/2023Sexually AbusedNot on file07/08/2023hysically or Sexually AbusedNot on file07/08/2023Sex and Gender InformationValueDate RecordedSex Assigned at UsakwLydq85/19/2025 3:16 PM EDT Legal KpkVlsf3611/13/2021 12:17 AM EDTGender SqjjatbcPviw83/19/2025 3:16 PM EDT Sexual OrientationHeterosexual or Zdmqgslp85/19/2025 3:16 PM EDTdocumented as of this encounter Plan of Treatment Not on file documented as of this encounter Visit Diagnoses Diagnosis Mitral valve insufficiency, unspecified etiology documented in this encounter Care Teams Team MemberRelationshipSpecialtyStart DateEnd Date Yajaira Roque FNP-C [address] [place] [address] PCP - GeneralNurse Practitioner12/05/24documented as of this encounter
--- OUTSIDE RECORDS SUMMARY | 2025-03-07 10:34 | XMS_ITS | Encounter Summary ---
Author Organization [facility] Address [address] [place] [address] Care Team Providers Care Rn Circulating Name Role Phone Yajaira Roque TESTING TECH-C Primary Care Provider [phone] Reason for Visit * ReasonCommentsMed Refill Encounter Details DateTypeDepartmentCare Team (Latest Contact Info)Zskukdzwvse45/12/2025Refill [facility] [address] [place] [address] Margaret Arellano MD [address] [facility] [address] [facility] [place] [address] Chest pain, unspecified type; Hypertension, unspecified type Social History Tobacco UseTypesPacks/DayYears UsedDateSmoking Tobacco: FormerCigarettesQuit: 1984Smokeless Tobacco: NeverAlcohol UseStandard Drinks/WeekCommentsYes0 (1 standard drink = 0.6 oz pure alcohol)OCCASIONALUT Safety & EnvironmentAnswerDate RecordedFear of Current or Ex-PartnerNot on file07/08/2023Emotionally AbusedNot on file07/08/2023hysically AbusedNot on file07/08/2023Sexually AbusedNot on file07/08/2023hysically or Sexually AbusedNot on 07/08/2023Sex and Gender InformationValueDate RecordedSex Assigned at AphfjSrbb34/19/2025 3:16 PM EDT Legal HlbTkmp6511/13/2021 12:17 AM EDTGender ScujnesyMtsa03/19/2025 3:16 PM EDT Sexual OrientationHeterosexual or Xezzecne75/19/2025 3:16 PM EDTdocumented as of this encounter Plan of Treatment Not on file documented as of this encounter Visit Diagnoses Diagnosis Chest pain, unspecified type Hypertension, unspecified type documented in this encounter Care Teams Team MemberRelationshipSpecialtyStart DateEnd Date Yajaira Roque FNP-C [address] [place] [address] PCP - GeneralNurse Practitioner12/05/24documented as of this encounter
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
--- OUTSIDE RECORDS SUMMARY | 2025-03-07 10:34 | XMS_ITS | Clinical Summary ---
Author Organization [facility] Address [address] [place] [id number] Care Team Providers Care Necktie Centralizing Machine Operator Name Role Phone Anjali Ruby CNP Unavailable [phone] Consuelo Mcghee MD Unavailable Demetrius Mirza MD Primary Care Provider [phone] Allergies Active AllergyReactionsCriticalityNoted DateCommentsAdhesive Tape-SiliconesRash 01/19/2019NiacinItching,Mgmaxke3301/19/2019 Medications MedicationSigDispense QuantityRefillsLast FilledStart DateEnd DateStatus isosorbide mononitrate ER (IMDUR) 30 mg 24 hr tablet Take 30 mg by mouth.08/31/2022ctive clopidogrel (PLAVIX) 75 mg tablet 02/27/2023ctive furosemide (LASIX) 20 mg tablet Take 20 mg by mouth.04/24/2020Active fluticasone (FLONASE) 50 mcg/actuation nasal spray 1 [place].08/24/2022ctive omeprazole (PRILOSEC) 40 mg capsule Take 40 mg by mouth.01/06/2023ctive amLODIPine (NORVASC) 5 mg tablet Take 5 mg by mouth.04/24/2020Active irbesartan (AVAPRO) 300 mg tablet Take 300 mg by mouth.04/24/2020Active sotalol (BETAPACE) 80 mg tablet Take 80 mg by mouth.04/24/2020Active metFORMIN (GLUCOPHAGE) 500 mg tablet Take 500 mg by mouth.Active rosuvastatin (CRESTOR) 10 mg tablet Take 10 mg by mouth.11/10/2022ctive tiZANidine HCl (ZANAFLEX) 4 mg capsule Take 4 mg by mouth.Active zonisamide (ZONEGRAN) 25 mg capsule 03/23/2023ctive latanoprost (XALATAN) 0.005 % ophthalmic solution 1 Drop daily at bedtime.Active sucralfate (CARAFATE) 1 gram tablet Take 1 g by mouth.12/15/2022ctive loperamide HCl (IMODIUM) 2 mg tab Take 2 mg by mouth.02/21/2021ctive gabapentin (NEURONTIN) 600 mg tablet Take 1 tablet by mouth.Active zolpidem (AMBIEN) 5 mg tablet Take 5 mg by mouth.Active glimepiride (AMARYL) 2 mg tablet Take 2 mg by mouth.01/19/2019Active aspirin, enteric coated (ASPIRIN, ENTERIC COATED) 81 mg EC tablet Take 81 mg by mouth.Active acetaminophen 325 mg-caffeine 40 mg-butalbital 50 mg (FIORICET) per tablet Take 1 tablet by mouth every 4 hours as needed.12/15/2022ctive iv contrast (will be provided with radiology test) Indications:IPMN (intraductal papillary mucinous neoplasm)MRI PANC/DEANNE Inject, intravenously, once for 1 dose. No IV access, insert saline lock prior to the b eginning of sedation, infusion, injection of imaging exam. Discontinue saline lock post exam. If Pt. has a central line or IVAD, may access for administration according to line specific nursing protocol. Once exam is complete flush line and de-access according to line specific nursing protocol in the MR contrast administration guidelines link. 1 Each 02/01/2024ctive Social History Tobacco UseTypesPacks/DayYears UsedDateSmoking Tobacco: FormerCigarettes Smokeless Tobacco: NeverArea Deprivation IndexAnswerDate RecordedNational Score (1-100), lower number is lower ujej177004/01/2023State Score (1-10), lower number is lower vbpi75106/01/2022ata from: https://www.neighborhoodatlas.medicine.[facility].edu/. Last address used for [address]/01/2023Sex and Gender InformationValueDate RecordedSex Assigned at BirthNot on fileLegal GszBnob19/18/2023 7:42 AM EDTGender Identity Not on fileSexual OrientationNot on file Last Filed Vital Signs Vital SignReadingTime TakenCommentsBlood Vaifzmlk406/6611/ 1:15 PM EST Zmyvf215004/01/2023 1:15 PM BQAEgjthznbyjb16.2 ??C (97.1 ??F)04/01/2023 1:15 PM ESTRespiratory Rate--Oxygen Yqscgluqzw99%04/01/2023 1:15 PM ESTInhaled Oxygen Concentration--Dcvhgn45.8 kg (167 lb)04/01/2023 1:15 PM ESTHeight--Body Mass Index-- Plan of Treatment Health MaintenanceDue DateLast DoneCommentsAnxiety Wkzbzmdcy28/15/1958Depression Vtxhiapby80/15/1958DTaP,Tdap,Td Vaccine (1 - Tdap)10/29/1958Diabetes Screening 10/29/1984RSV Vaccine (1 - 1-dose 75+ series)10/29/2014dvance Directive Jkpmhvempw85/01/2025Medicare Advantage Annual Wellness Visit05/17/2024ovid-19 Vaccine (2024- season), 11/25/2021, 03/06/2021, Additional history existsInfluenza Vaccine (#1)5106/12/2022, 02/18/2021, 02/14/2020, Additional history existsPneumococcal Vaccine: 50+Completed 11/22/2023, 01/30/2014Shingrix ViqclwiZhkwtphwe07/25/2024, 11/22/2023 Insurance Care Teams Team MemberRelationshipSpecialtyStart DateEnd Date Demetrius Mirza MD [address] [place] [address] PCP - GeneralFamily Krqjoihp74/11/24 Anjali Ruby, CONCRETE PAVEMENT INSTALLER [address] [place] [address] ReferringFamily Biteklqd98/18/23 Consuelo Mcghee MD [address] [id number] Ent - Yohvrtchagtqym22/25/24
--- OUTSIDE RECORDS SUMMARY | 2025-03-07 10:34 | XMS_ITS | Clinical Summary ---
Author Organization [facility] Address [address] [place] [address] Phone Care Team Providers Care Sales Support Consultant Name Role Phone Demetrius Mirza MD Primary Care Provider [phone] Allergies Active AllergyReactionsCriticalityNoted KyrxSedlietbVrhstyqjWvkjVne99/12/2024 Adhesive Tape-YzqqnvipeJzdoRwh27/05/2019NiacinHives,Itching,Zcexibu5601/19/2019 Medications MedicationSigDispense QuantityRefillsLast FilledStart DateEnd DateStatus amLODIPine (Norvasc) 5 mg tablet Take 1 tablet (5 mg) by mouth once daily.02/21/2024ctive aspirin 81 mg EC tablet Take 1 tablet (81 mg) by mouth once daily.Active jandespewd-qhttkbttslpkd-bemx 50-325-40 mg tablet Take 1 tablet by mouth every 4 hours if needed.12/15/2022ctive clopidogrel (Plavix) 75 mg tablet Take 1 tablet (75 mg) by mouth once daily.Active dorzolamide (Trusopt) 2 % ophthalmic solution Administer 1 drop into both eyes 2 times a day.07/27/2023ctive famotidine (Pepcid) 20 mg tablet Take 1 tablet (20 mg) by mouth once daily.07/27/2023ctive fluticasone (Flonase) 50 mcg/actuation nasal spray Administer 1 spray into each nostril once daily.08/24/2022ctive furosemide (Lasix) 20 mg tablet Take 1 tablet (20 mg) by mouth once daily.Active irbesartan (Avapro) 300 mg tablet Take 1 tablet (300 mg) by mouth once daily.07/27/2023ctive isosorbide mononitrate ER (Imdur) 30 mg 24 hr tablet Take 1 tablet (30 mg) by mouth once daily.08/31/2022ctive latanoprost (Xalatan) 0.005 % ophthalmic solution Administer 1 drop into both eyes once daily at bedtime.05/19/2023ctive loperamide (Imodium A-D) 2 mg tablet Take 1 tablet (2 mg) by mouth 4 times a day as needed.Active metFORMIN XR 500 mg 24 hr tablet Take 1 tablet (500 mg) by mouth once daily.Active omeprazole (PriLOSEC) [address] capsule Take 1 capsule (40 mg) by mouth once daily.01/06/2023ctive rosuvastatin (Crestor) 10 mg tablet Take 1 tablet (10 mg) by mouth once daily.Active sotalol (Betapace) 80 mg tablet Take 0.5 tablets (40 mg) by mouth 2 times a day.07/27/2023ctive tiZANidine (Zanaflex) 4 mg tablet Take 1 tablet (4 mg) by mouth once daily.07/27/2023ctive zonisamide (Zonegran) 25 mg capsule Take 1 capsule (25 mg) by mouth twice a day.02/15/2023ctive multivitamin tablet Take 1 tablet by mouth once daily.Active lancets misc 1 each.Active Active Problems ProblemNoted DateDiagnosed DatePrimary aqlaucynsqjn95/26/2024oronary artery disease involving autologous artery coronary bypass graft05/11/2024acemaker 05/11/2024Stented coronary nzqtbn9305/11/2024Ventricular /26/2024OSA (obstructive sleep apnea)05/11/2024Gastroesophageal reflux vluzzrm6805/11/2024 Glkftvbmo46/26/2024iabetes mellitus, type Oral miwbuk8304/07/2024 Malignant neoplasm of floor of mouth04/07/2024 Encounters DateTypeDepartmentCare QcmlIbfsdhlxqkj52/22/2025bstract [facility] [address] [place] [address] Mary Schneider MD 12/11/2024 1:45 PM EDTOffice Visit [facility] [address] [facility] [place] [address] Mary Schneider MD 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); G tube feedings (Multi); At risk for addhgqrkrgat62/28/2025Travelfrom Last 3 Months Family History Medical HistoryRelationNameCommentsCancerFatherPaul J BauerHearing lossFather Daniel J BauerVision lossMaternal GrandfatherGeorge SmithHypertensionMaternal GrandmotherEdna SmithAsthmaMotherDoris M BauerHypertensionMotherDoris M Bennett Vision lossOtherAnna BremmserHypertensionPaternal GrandmotherKatherine Bennett Vision lossPaternal GrandmotherKatherine BauerCancerSisterJudy ReisigMotion SicknessSisterJudy ReisigRelationNameStatusCommentsFatherPaul J BauerAlive Maternal GrandfatherGeorge SmithAliveMaternal GrandmotherEdna SmithAliveMother Estee M BauerAliveOtherAnna BremmserAlivePaternal GrandmotherKatherine Bennett AliveSisterJudy ReisigAlive Social History Tobacco UseTypesPacks/DayYears UsedDateSmoking Tobacco: CndqazGsmrxdgyaq982Iyhp: 05/17/1983Smokeless Tobacco: Former Tobacco Cessation:Counseling Given: No Alcohol UseStandard Drinks/WeekCommentsYes2 (1 standard drink = 0.6 oz pure alcohol)or less or weekPHQ-2AnswerDate RecordedPatient Health Questionnaire-2 Mcwux633Sex and Gender InformationValueDate RecordedSex Assigned at BirthNot on fileLegal MmhFkji81/25/2022 9:24 AM ESTGender GwbsuszwXaap22/26/2024 5:56 AM ESTSexual ShcxbvkbpeaTecqbahy97/26/2024 5:56 AM EST Last Filed Vital Signs Vital SignReadingTime TakenCommentsBlood Bcxarkal228/69012/11/2024 1:30 PM EDT Fmxui5362 2:13 PM KDADrcfilahwzf68 ??C (96.8 ??F)09/11/2024 1:07 PM EDT Respiratory Jjep8485 2:13 PM ESTOxygen Rjcahaiddp24%06/05/2024 2:13 PM ESTInhaled Oxygen Concentration--Qxhubo11.7 kg (160 lb 2.6 oz)12/11/2024 1:30 PM XTYTkdieb331.1 cm (5' 5 )09/11/2024 1:07 PM EDTBody Mass Index26.65009/11/2024 1:07 PM EDT Plan of Treatment DateTypeDepartmentCare Team (Latest Contact Info)Dnxlwdomezm64/23/2026 1:30 PM ESTOffice Visit [facility] [address] [place] [phone] [place] [address] [place] [address] Health MaintenanceDue DateLast DoneCommentsDiabetes: Hemoglobin A1C1939 Diabetes: Urine Protein Qwahtkfpq41/15/7341Ytbpcjeeqbviit89/15/1940Lipid Panel 1940Medicare Annual Wellness Visit (AWV)1939Diabetes: Retinopathy Koxpkvebw50/15/1950DTaP/Tdap/Td Vaccines (1 - Tdap)10/29/1961Influenza Vaccine (#1)512/06/2023, 04/12/2023, 02/18/2021, Additional history exists COVID-19 Vaccine ( season)/, 11/25/2021, 03/06/2021, Additional history existsCreatinine Level/ Potassium Level/4Pneumococcal BzrkrrpEgcxxqwan28/08/2024, 01/30/2014Zoster FuqfxfkbYrbpsykwp75/25/2024, 4RSV High Risk: (Elderly (60+) or Population)Tgvemfoht14/06/2024HIB VaccinesAged OutNo longer eligible based on patient's age to complete this topicHPV VaccinesAged OutNo longer eligible based on patient's age to complete this topicHepatitis A VaccinesAged OutNo longer eligible based on patient's age to complete this topic Hepatitis B VaccinesAged OutNo longer eligible based on patient's age to complete this topicIPV VaccinesAged OutNo longer eligible based on patient's age to complete this topicMeningococcal VaccineAged OutNo longer eligible based on patient's age to complete this topicRotavirus VaccinesAged OutNo longer eligible based on patient's age to complete this topic Procedures Procedure NamePriorityDate/TimeAssociated DiagnosisCommentsBASIC METABOLIC PANEL Hwqiuzc8504/11/2024 9:14 AM EST Oral lesion 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) from Last 3 Months or Most Recently Relevant to Health Maintenance Results * (ABNORMAL) Basic Metabolic Panel (04/11/2024 9:14 AM EST)ComponentValueRef RangeTest MethodAnalysis TimePerformed AtPathologist YtevpvdugFgevyyg725(H)74 - 99 mg/dL LAB CHEMISTRY METHOD 04/11/2024 11:09 AM [facility] CXQMhotui122313 - 145 mmol/L LAB CHEMISTRY METHOD 04/11/2024 11:09 AM [facility] LABPotassium4.53.5 - 5.3 mmol/L LAB CHEMISTRY METHOD 04/11/2024 11:09 AM [facility] NGMUlazvjxb38549 - 107 mmol/L LAB CHEMISTRY METHOD 04/11/2024 11:09 AM [facility] OAFOrwmfrlnejg3629 - 32 mmol/L LAB CHEMISTRY METHOD 04/11/2024 11:09 AM [facility] LABAnion Gqg3274 - 20 mmol/L LAB CHEMISTRY METHOD 04/11/2024 11:09 AM [facility] LABUrea Usmrcklo315 - 23 mg/dL LAB CHEMISTRY METHOD 04/11/2024 11:09 AM [facility] LABCreatinine0.960.50 - 1.30 mg/dL LAB CHEMISTRY METHOD 04/11/2024 11:09 AM [facility] VCTrOHN46>60 mL/min/1.73m*2 LAB CHEMISTRY METHOD 04/11/2024 11:09 AM [facility] LABComment: Calculations of estimated GFR are performed using the 2020 CKD-EPI Study Refit equation without therace variable for the IDMS-Traceable creatinine methods. https://jasn.asnjournals.org/content//ASN.2350545748 Calcium9.98.6 - 10.6 mg/dL LAB CHEMISTRY METHOD 04/11/2024 11:09 AM [facility] LABSpecimen (Source)Anatomical Location / LateralityCollection Method / VolumeCollection TimeReceived TimeBloodVenous blood specimen / UnknownVenipuncture / Wwtimru8304/11/2024 9:14 AM EST04/11/2024 10:37 AM EST Narrative Authorizing ProviderResult TypeResult StatusTracy Adrian JERONIMO BLOOD ORDERABLESFinal ResultPerforming OrganizationAddressCity/State/ZIP CodePhone Number [facility] [address] [phone] from Last 3 Months or Most Recently Relevant to Health Maintenance Insurance Advance Directives For more information, please contact: [phone] (Available ) TypeDate RecordedPatient RepresentativeExplanationHealthcare Power of Atty 05/11/2024Living Will05/11/2024 Care Teams Team MemberRelationshipSpecialtyStart DateEnd Date Demetrius Mirza MD [address] [facility] [place] [address] PCP - GeneralFamily Ahiktvzl91/26/24
--- OUTSIDE RECORDS SUMMARY | 2025-03-07 10:38 | XMS_ITS | CCD ---
Author Organization [facility] Care Team Providers Care Parker Name Role Phone ELTAHAWY, EHAB A Admitting Unavailable ELTAHAWY, EHAB A Attending Unavailable DEMETRIUS COOPER Referring Unavailable DEMETRIUS COOPER Primary Care Unavailable Param Cosme Attending Provider Demetrius Cooper Primary Care Provider Param Cosme Attending Provider Demetrius Cooper Primary Care Provider Leti Garcia Unavailable MG LONDON Primary Care Physician [phone] KAT Westfall Attending Provider MD Mg [place] Primary Care Provider KAT Westfall Attending Provider MD Mg [place] Primary Care Provider MD Erwin Salazar Attending Provider [phone] Erwin Salazar Unavailable MARCE Hardy Attending Provider KAT Westfall Other Provider Demetrius Cooper Primary Care Physician Griselda Pennington Unavailable ALANNA HARDY Admitting Unavailable ALANNA HARDY Attending Unavailable GUERO, DR MG Omalley Primary Care Unavailable [place]ING[place], DR ERWIN Bell Consulting Unavailable ALANNA HARDY Consulting Unavailable GUERO, DR MG Omalley Consulting Unavailable GUERO, DR MG Omalley Attending Unavailable GUERO, DR MG Omalley Admitting Unavailable GUERO, DR MG Omalley Primary Care Unavailable LAKSHMIPATHY ., NARENDRANATH Consulting Lisset vailable LAKSHMIPATHY ., NARENDRANATH Attending Lisset vailable LAKSHMIPATHY ., NARENDRANATH Admitting Lisset vailable NADERER, DR MG Omalley Primary Care Unavailable STANFORD, DIEGO Attending Unavailable STANFORD, DIEGO Admitting Unavailable STANFORD, DIEGO Consulting Unavailable NADERESantos, DR MG Omalley Primary Care Unavailable ABDON, SONA Attending Unavailable ABDON, SONA Admitting Unavailable ZIEBER, DR CLARISSA Cline Consulting Unavailable NADERER, DR MG Omalley Primary Care Unavailable ABDON, SONA Consulting Unavailable NADERESantos, DR MG Omalley Primary Care Unavailable MARKER ., DR ODELL Consulting Unavailable MARKER ., DR ODELL Admitting Unavailable MARKER ., DR ODELL Attending Unavailable HIGHTOWER, GIN Consulting Unavailable ABDON, SONA Attending Unavailable ABDON, SONA Admitting Unavailable NADSILVIA, DR MG Omalley Primary Care Unavailable LAZO ., SONNY Consulting Unavailable NADERESantos, DR MG Omalley Primary Care Unavailable CLANCY ., DR AMANDA Fish Attending Unavailable CLANCY ., DR AMANDA Fish Admitting Unavailable CLANCY ., DR AMANDA Fish Admitting Unavailable LAZO ., SONNY Consulting Unavailable CLANCY ., DR AMANDA Fish Attending Unavailable NADERESantos, DR MG Omalley Primary Care Unavailable LAKSHMIPATHY [...] CLANCY ., DR AMANDA Fish Attending Unavailable NADERESantos, DR MG Omalley Primary Care Unavailable ALANNA HARDY Admitting Unavailable HIGHLANDER, ALANNA Araiza Attending Unavailable NADERER, DR MG Omalley Primary Care Unavailable HIGHLANDER, ALANNA Araiza Attending Unavailable HIGHLELLA, ALANNA Araiza Admitting Unavailable NADERER, DR MG Omalley Primary Care Unavailable MISC, DR BECKER Attending Unavailable FAWWAD, SHAIKH Jane Consulting Unavailable MISC, DR BECKER Admitting Unavailable NADERER, DR MG Omalley Primary Care Unavailable [place], DR ERWIN Bell Consulting Unavailable ELTAHAWY, DR CAO Admitting Unavailable ELTAHAWY, DR CAO Attending Unavailable NADERER, DR GM Omalley Primary Care Unavailable ELTAHAWY, DR CAO [...] Gisele Unavailable MD Erwin Salazar Attending Provider [phone] MD Demetrius Cooper Primary Care Provider [phone] MD Inez Henderson Attending Provider Esme Brunson NP Gisele Attending Provider FABIO Ruby Attending Provider Flori GARZA, [facility] Unavailable MD Demetrius Cooper Primary Care Provider [phone] DAISHA Brunson Gisele Attending Provider Clarissa Corado MD Unavailable Demetrius Cooper MD Primary Care Provider Flori GARZA, [facility] A. Unavailable [phone] MD Demetrius Cooper Primary Care Provider MD Luc Ham Jr Attending Provider Luc Guo MD Unavailable Demetrius Cooper MD Primary Care Provider LUC HAM Referring Unavaila ble DEMETRIUS COOPER E Primary Care Unavailable VAISHALI PRINGLE Attending Unavailable Unavailable Primary Care Provider UnavailDemetrius Davila MD Primary Care Provider Demetrius Cooper MD Primary Care Provider Talib Faustin MD Attending Provider Mary Schneider MD Referring Provider [phone] Demetrius Cooper MD Primary Care Provider Mary Schneider MD Referring Provider Dennis Gray MD Attending Provider Matteo Melo MD Attending Provider [phone] Demetrius Cooper MD Primary Care Provider Debora [...] Care Provider Matteo Melo MD Attending Provider [phone] Debora Wild APRN Attending Provider Dennis Gray MD Attending Provider Maru Ma DO Attending Provider Mary Schneider MD Referring Provider [phone] Talib Faustin MD Attending Provider Dennis Gray [...] Unavailable Demetrius Cooper Attending Unavailable MD Demetrius Cooepr Attending Unavailable MD Demetrius Cooper Attending Unavailable MD Demetrius Cooper Attending Unavailable MD Demetrius Cooper Attending Unavailable Demetrius Cooper MD Primary Care Provider Becky Crouch APRN Attending Provider Boy ASHTON, Gisele Attending Provider Debora Wild APRN Attending Provider Veena Ross DO Attending Provider Talib Faustin MD Attending Provider Mary Schneider MD Referring Provider Dennis Gray MD Attending Provider Inez Henderson Attending Unavaila ble Demetrius Cooper Attending Unavailable Demetrius Cooper Attending Unavailable Demetrius Cooper Attending Unavailable Demetrius Cooper Attending Unavailable Demetrius Cooper Attending Unavailable Ross, Demetrius E. Admitting Unavailable Ross, Demetrius E. Attending Unavailable Demetrius Cooper MD Primary Care Provider [phone] Debora Wild APRN Attending Provider Debora Wild APRN Other Provider Becky Crouch APRN Attending Provider Mary Schneider MD Referring Provider MARY SCHNEIDER Attending Unavailable SCHNEIDER, MARY N Referring Unavailable [facility] Primary Care Unavailable SCHNEIDER, MARY N Admitting Unavailable SCHNEIDER, MARY N Attending Unavailable [facility] Primary Care Unavailable SCHNEIDER, MARY N Admitting Unavailable SCHNEIDER MARY N Attending Unavailable [facility] Primary Care Unavailable SCHNEIDER, MARY N Referring Unavailable [facility] Primary Care Unavailable SCHNEIDER MARY N Attending Unavailable [facility] Primary Care Unavailable SCHNEIDER, MARY N Referring Unavailable [facility] Primary Care Unavailable SCHNEIDER, MARY N Attending Unavailable [facility] Primary Care Unavailable SCHNEIDER, MARY N Attending Unavailable [facility] Primary Care Unavailable Josh CASON, Clarissa Unavailable [phone] MATTEO AMBROSE Attending Unavailable DENNIS GRAY Referring [...] PATEL Attending Unavailable STACEY PATEL Referring Unavailable Allison CASON, Demetrius E Primary Care Provider [phone] Mary Schneider MD Referring Provider Talib Faustin MD Attending Provider Matteo Melo Attending Unavailable Matteo Melo Admitting Unavailable Ross, Demetrius E Primary Care Unavailable Debora Wild Admitting Unavailable Debora Wild M Attending Unavailable Ross, Demetrius E Primary Care Unavailable Debora Wild Attending Unavailable Ross, Demetrius E Primary Care Unavailable Robina Wildine M Admitting Unavailable Maru Hayes Attending Unavailable Maru Hayes Admitting Unavailable Ross, Demetrius E Primary Care Unavailable Zeke Brennan Attending Unavailable Jaiden Nance Admitting Unavailable Yash Thomas Unavailable Ross, Demetrius E Primary Care Unavailable Dennis Gray Attending Unavailable Dennis Gary Admitting Unavailable Ross, Demetrius E Primary Care Unavailable Ross, Demetrius E Primary Care Unavailable Talib Faustin Attending Unavailalyssia e Talib Faustin Admitting UnavailMary Scott Referring Unavailable Ross, Demetrius E Primary Care Unavailable Maru Ma Attending Unavailable Maru Ma Admitting Unavailable Pepito Galicia Attending Unavailable Pepito Galicia Admitting Unavailable Ross, Demetrius E Primary Care Unavailable Ross, Demetrius E Primary Care Unavailable Debora Wild M Admitting Unavailable Deboar Wild Attending Unavailable Ross, Demetrius E Primary Care Unavailable Junito Debora M Admitting Unavailable Debora Wild Attending Unavailable Veena Ross Attending Unavailable Veena Ross Admitting Unavailable Ross, Demetrius E Primary Care Unavailable Unavailable Unavailable Unavailable Allergies Allergy ClassificationReported Allergen(s)Allergy TypeDate of OnsetReaction(s) Facility (3 sources)DesonideDrug Qyjmltm34-36-3688Jrw [facility] Repository (1 source)NiacinDrug Fhyxcig96-87-3095Uws [facility] Repository (20 sources)Adhesive agent; Translations: [adhesive]Drug spuricy75-66-8244[facility]St[facility] (20 sources)Niacin; Translations: [niacin]Drug Kjmxnrs21-62-8878evork, Itching (finding), Itching, UnknownGeneral Surgery [facility] (20 sources)Adhesive bandage; Translations: [Adhesive Bandage]Allergy to substanceEruption of skin (disorder)[facility] (5 sources)NiacinDrug AllergyhivesNort Rx Network Other (2 sources)Niaspan Starter PackDrug allergy (disorder)17-99-3239Bdn [facility] Repository (15 sources)Adhesive Tape-Silicones; Translations: [ADHESIVE TAPE-SILICONES]Drug Gziwfiw90-83-5751NjewIolzpsunl Clinic (20 sources)NiacinDrug Emscvze49-76-0285Zywagul, [facility] (20 sources)Wound Dressing AdhesiveDrug Yxuxyxz26-06-7456GwdtcjzKMBS Healthcare (4 sources)Niacin; Translations: [Niaspan ER][facility]rug [facility]ergyBarn[facility]ville [facility] Repository (2 sources)NiacinDrug Vmqssoi82-40-8882MitdoafitPromedica [facility] Repository Medications Current Medications MedicationDrug Class(es)DatesSig (Normalized)Sig (Original)acetaminophen 325 mg / butalbital 50 mg / caffeine 40 mg oral capsule (20 sources)Barbiturate, Central Nervous System Stimulant, MethylxanthineStart: 30-33-7135qdcg 1 capsule by mouth every four hours for headacheEsgic 325 mg-50 mg-40 mg oral capsule 1 cap(s), Oral, q4hr for headache, 60 cap(s), Refill(s) 1, [id number], 160, cm, 11/29/23 10:29:00 EDT, Height/Length Dosing, 78.5, kg, 11/29/23 10:29:00 EDT, Weight Dosing Start Date: 11/29/23 Status: Ordered Quantity: 60.0 Unit: cap(s) Repeat number: 2Start: 12-15-2022 End: 24-91-3510qztp 1 tablet by mouth every four hours as needed hvhwfpqiag-rniecbqixxtax-nexe 50-325-40 mg tablet Take 1 tablet by mouth every 4 hours if needed. 12/15/2022 ActiveStart: 87-63-6212BXWQ/butalbital/caffeine 325 mg-50 mg-40 mg Tab Refill(s) 0, Headache Start Date: 12/15/22 Status: Ordered Comment on above:Take 1 tablet by mouth every 4 hours as needed.Albuterol (Eqv- ProAir HFA) 90 mcg/inh inhalation aerosol (16 sources)Start: 70-45-3559Ucpyfchyf (Eqv-ProAir HFA) 90 mcg/inh inhalation aerosol See Instructions, 17 gm, Refill(s) 6, USE 2 INHALATIONS BY MOUTH EVERY 6 HOURS, [facility] ([facility]), 163, cm, 11/04/22 15:03:00 EDT, Height/Length Dosing, 76, kg, 11/04/22 15:03:00 EDT, Weight Dosing Start Date: 11/09/22Status: Ordered Quantity: 17.0 Unit: g Repeat number: 1Start: 82-00-8483Whuyjjmdj (Eqv-ProAir HFA) 90 mcg/inh inhalation aerosol See Instructions, 17 gm, Refill(s) 6, USE 2 INHALATIONS BY MOUTH EVERY 6 HOURS, [facility] ([facility]), 163, cm, 11/04/22 15:03:00 EDT, Height/Length Dosing, 76, kg, 11/04/22 15:03:00 EDT, Weight Dosing Start Date: 11/09/22Status: Ordered{1 (Ascorbic Acid 7540 MG / POLYETHYLENE GLYCOL 3350 32591 MG / Potassium Chloride 1200 MG / SodiumAscorbate 71414 MG / Sodium Chloride 3200 MG Powder for Oral Solution) / 1 (POLYETHYLENE GLYCOL 3350 361365 MG / Potassium Chloride 1000 MG / Sodium Chlori (5 sources)Osmotic Laxative, Vitamin CStart: 36-62-4442Imxovk oral powder for reconstitution See Instructions, 1 EA, Refill(s) 0, Prior to colonoscopy., [id number], 163, cm, 12/15/22 12:03:00 EDT, Height/Length Dosing, 73.3, kg, 12/16/2311:03:00 EDT, Weight Dosing Start Date: 12/15/22 Status: Ordered Aspir 81 (18 sources)Start: 21-96-1175gelw 81 mg by mouth once dailyAspir 81 81 mg, Oral, Daily, Refills(s) 0, Prophylaxis Start Date: 04/24/20 Status: Ordered Repeat nu mber: 1Start: 63-80-7809fknj 81 mg by mouth once dailyAspir 81 81 mg, Oral, Daily, Refills(s) 0, Prophylaxis Start Date: 04/24/20 Status: OrderedStart: 41-89-3683jcux 1 mg by mouth once dailyAspir 81 mg, Oral, Daily, Refills(s) 0, Prophylaxis Start Date: 04/24/20 Status: OrderedAspir-81 (5 sources)Aspir-81 Activeazithromycin 250 mg oral tablet (4 sources)Macrolide AntimicrobialStart: 69-13-6174Eexqyrfnivje 250 MG 2 tablet on the first day, then 1 tablet daily for 4 days Orally Once a day for5 day(s) September, ActiveButalbital-Acetaminophen (5 sources)Butalbital-Acetaminophen Activecephalexin 250 mg oral capsule (1 source)Cephalosporin AntibacterialStart: 67-13-2892gubx 1 capsule by mouth twice dailyKeflex 250 mg Cap 250 mg = 1 cap(s), Oral, BID, Start 3 days before procedure, # 10 cap(s), Refills(s) 0, Pharmacy: [facility] #[id number], 167, cm, 04/27/22 8:46:00 EST, Height/Length Dosing, 87.1, kg, 04/27/22 8:46:00 EST, Weight Dosing Start Date: 04/27/22 Status: Orderedcholestyramine 4 g/5 g Oral Pwdr (1 source)Start: 70-43-9422bigvbzzxysaqtz 4 g/5 g Oral Pwdr 1 packet(s), Oral, TID, 90 EA, Refill(s) 0, [facility] ([facility] ), 167.6, cm, 08/24/22 8:10:00 EDT, Height/Length Dosing, 83.4, kg, 08/24/22 8:10:00 EDT, Weight Dosing Start Date: 08/24/22 Status: Orderedsugar-free cholestyramine resin 4000 mg powder for oral suspension (7 sources)Bile Acid SequestrantStart: 29-85-1033rbeakejhazbkqg 4 g/5 g Oral Pwdr 5 gram, 1 EA, Oral, BID, 630 gm, Refill(s) 0, one scoop BID 90 daysupply, [facility] #[id number], 162, cm, 08/30/23 10:00:00 EDT, Height/Length Dosing, 78.4, kg, 08/30/23 10:00:00 EDT, Weight Dosing Start Date: 09/06/23 Status: OrderedStart: 05-25-2023 End: 52-07-6445fyao 4 g by mouth once dailyQuestran 4 g/9 g oral powder 4 gm, Oral, Daily, X 90 day(s), # 90 packet(s), Refills(s) 0, Pharmacy: [facility] #[id number], 163, cm, 05/25/23 12:33:00 EST, Height/Length Dosing, 79.8, kg, 05/25/23 12:33:00 EST, Weight Dosing Start Date: 05/25/23 Stop Date: 08/23/23 Status: OrderedDicyclomine (3 sources)AnticholinergicDicyclomine HCl Ldjzhr28 hr fentaNYL 0.012 mg/hr transdermal system (20 sources)Opioid AgonistStart: 88-83-2877sbchzAAX 12 mcg/hr Transderm ER Film 1 patch(es), Topical, q72hr, Refill(s) 0 Start Date: 08/22/24 Status: Ordered Repeat number: 1Start: 08-02-2024 End: 98-00-2803Ajskgdwx 12 mcg/hr patch 72 hour Discontinued 1 PATCH TRANSDERML Every 72 hours 09 28August 16, 2024 September 11, 2024 10:11amStart: 06-05-2024 End: 78-27-2656gihduebffif, Once PRN Procedure, Starting on 06/05/24 at 1345, For 1 dose, Intraprocedureferrous sulfate 325 mg oral tablet (1 source)Start: 62-26-4599cxpn 1 tablet by mouth twice dailyFish Oils (7 sources)Start: 14-59-8520Bnkjx-3 Fish Oil Oral, Daily, Refills(s) 0, Prophylaxis Start Date: 11/04/22 Status: OrderedStart: 96-96-5051Fhdsq-3 Fish Oil Oral, Daily, Refills(s) 0 Start Date: 11/04/22 Status: Orderedfluticasone 0.05 mg/inh Nasal [place] (1 source)Start: 19-47-5135hjavgctdeiv 0.05 mg/inh Nasal [place] Daily, Refill(s) 0 Start Date: 04/24/20 Status: Orderedgabapentin 600 mg oral tablet (20 sources)Anti-epileptic AgentStart: 47-95-6897wajb 1 tablet by mouth three times dailygabapentin 600 mg Tab 600 mg, Oral, TID, # 270 EA, Refills(s) 0, Pharmacy: [facility], 163, cm, 02/25/23 13:29:00 EDT, Height/Length Dosing, 78.8, kg, 02/25/23 13:29:00 EDT, Weight Dosing Start Date: 03/09/23 Status: OrderedGabapentin 300 MG Oral for 90 ActiveComment on above:Take 1 tablet by mouth.glimepiride 2 mg oral tablet (6 sources)SulfonylureaStart: 96-17-7831gzhzalvlcwk (AMARYL) 2 mg tablet Take 2 mg by mouth. 01/19/2019 ActiveComment on above:Take 2 mg by mouth. Hc/Dph/Nystat/Lido/Fla Monsalve (1 source)Start: 81-09-0841ijic 10 mL by mouth four times daily as needed Hc/Dph/Nystat/Lido/Fla Monsalve Hc/Dph/Nystat/Lido/Fla Monsalve, Swish and swallow with 10ml by mouth four times daily as needed FOR mucositis Start Date: 08/22/24 Status: Ordered Repeat number: 1iv contrast (will be provided with radiology test) (3 sources)Start: 78-55-2212sj contrast (will be provided with radiology test) [...] contrast administration guidelines link. 1 Each 02/01/2024 Activeloperamide hydrochloride 2 mg oral tablet (20 sources)Opioid AgonistStart: 03-28-3888dsbx 1 tablet by mouth every four hoursloperamide 2 mg Tab 2 mg = 1 tab(s), Oral, q4hr, Refills(s) 0, Diarrhea Start Date: 02/21/21 Status:Orderedloperamide (Imodium A-D) 2 MG tablet Take 2 mg by mouth as needed in the morning and 2 mg as neededat noon and 2 mg as needed in the evening and 2 mg as needed before bedtime for diarrhea. Activetake 1 tablet by mouth four times daily as neededloperamide (Imodium A-D) 2 mg tablet Take 1 tablet (2 mg) by mouth 4 times a day as needed. ActiveLoperamide A-D ActiveComment on above:Take 2 mg by mouth.Magnesium (5 sources)Magnesium ActivemethylPREDNISolone 4 mg oral tablet (4 sources)CorticosteroidStart: 52-77-8051Kjbqaf 4 MG as directed Orally as directed for 6 days September, ActiveMisc Medication (6 sources)Start: 81-53-1013Gfye Medication Transdermal Therapeutics up to four times per day: Meloxicam 0.5%/ Doxepin 3%/ Amantidine 3%/Dextromethorphan 2%/ Lidocaine 2% Start Date: 11/08/23 Status: Ordered Repeat number: 1Start: 24-02-2864Elvb Medication Transdermal Therapeutics up to four times per day: Meloxicam 0.5%/ Doxepin 3%/ Amantidine 3%/Dextromethorphan 2%/ Lidocaine 2% Start Date: 11/08/23 Status: OrderedMultiple Vitamin (multivitamin) tablet (20 sources)take 1 tablet by mouth once dailyMultiple Vitamin (multivitamin) tablet Take 1 tablet by mouth Daily Activetake 1 tablet by mouth in the morning Multiple Vitamin (multivitamin) tablet Take 1 tablet by mouth in the morning. ActiveMultivitamin (Multiple Vitamins) tablet (20 sources)Start: 19-77-8857aqaa 1 tablet by mouth once dailyStart: 06-14-2024 take 1 tablet by mouth once dailyMultivitamin (Multiple Vitamins) tablet Active 1 TAB PO Daily June 14, 2024 1:00amStart: 41-83-1755sofp 1 tablet by mouth once dailyMultivitamin (Multiple Vitamins) tablet Active 1 TAB PO Daily June 14, 2024 12:00amMultivitamin preparation (5 sources)Multivitamin Activemultivitamin tablet (7 sources)take 1 tablet by mouth once dailymultivitamin tablet Take 1 tablet by mouth once daily. ActiveMultivitamin, Therapeutic w/ Minerals (18 sources)Start: 34-64-8567Krbovoaltmet, Therapeutic w/ Minerals Oral, Daily, Refill(s) 0, Prophylaxis Start Date: 04/24/20 Status: Ordered Repeat number: 1 Start: 21-72-3330Egkmyjpdrmbp, Therapeutic w/ Minerals Oral, Daily, Refill(s) 0, Prophylaxis Start Date: 04/24/20 Status: OrderedOmega 3 (5 sources)[place] 3 Activeomega-3 acid ethyl esters (jail) 1000 mg oral capsule (20 sources)take 1 capsule by mouth in the morningomega-3 acid ethyl esters (Lovaza) 1 g capsule Take 1 g by mouth in the morning and 1 g before bedtime. Activepantoprazole 20 mg delayed release oral tablet (7 sources)Proton Pump InhibitorStart: 37-01-8350qzsr 1 mg by mouth once daily Pantoprazole [address] Tab mg tab(s), Oral, Daily, Refills(s) 0 Start Date: 10/31/20 Status: OrderedPantoprazole Sodium Not-Taking/PRNPantoprazole Sodium Not-TakingPantoprazole Sodium Activepolyethylene glycol 3350 51076 mg powder for oral solution (8 sources)Osmotic LaxativeStart: 44-83-5448Nzobvlydw Chloride (10 sources)Start: 77-45-6585lncg 1 tablet by mouth twice dailyPotassium Chloride (Yyu-Hofd-Lev M20) 20 mEq oral tablet, extended release TAKE 1 TABLET BY MOUTH TWICE DAILY Start Date: 08/30/24 Status: Ordered Repeat number: 1Start: 08-23-2024 End: 84-21-0481Pvqhiuldt Chloride (Klor-Con M20) 20 mEq tablet,ER particles/crystals Discontinued 20 MEQ PO Twice daily August 23, 2024 12:00am October 03, 2024 10:25amrimegepant 75 mg disintegrating oral tablet (20 sources)Start: 02-16-2024 End: 74-31-0914Oaipdyscgm Sulfate (Nurtec) 75 MG tablet dispersible Indications: Migraine without aura and withoutstatus migrainosus, not intractable 1 tab PO prn migraine. 16 tablet 2 02/16/2024 ActiveSenna Leaves (1 source)Start: 70-21-9670vhak 1 tablet by mouth twice daily as needed for constipationSenna 8.6 mg oral tablet TAKE 1 TABLET BY MOUTH TWICE DAILY NEEDED FOR CONSTIPATION Start Date: 08/22/24 Status: Ordered Repeat number: 1 Sennosides (Black-Draught Lax-Senna) 8.6 mg tablet (8 sources)Start: 05-02-6878nafh 1 tablet by mouth once daily as needed for constipationSennosides (Black-Draught Lax-Senna) 8.6 mg tablet Active 8.6 MG PO Twice daily as needed for constipation 60 30 August 02, 2024 12:00am Use if no bowel movement dailysilver sulfADIAZINE 10 mg/ml topical cream (12 sources)Sulfonamide AntibacterialStart: 96-08-1117MKU 1% topical cream 1 lenin, Topical, BID, Refill(s) 0, apply to neck at affected areas Start Date: Status: Ordered Repeat number: 1Start: 08-18-2024 End: 05-17-6833Zlkjkk Sulfadiazine (Silvadene) 1 % cream Discontinued 1 APPLIC TOPICAL Twice daily August 18, 2024 12:00am October 03, 2024 10:25am Apply to open areas on radiation site, twice a day, until healed.traZODone hydrochloride 50 mg oral tablet (1 source)Serotonin Reuptake InhibitorStart: 27-49-4644loof 1 mg by mouth once daily at bedtimetraZODONE 50 mg Tab mg tab(s), Oral, Once a day (at bedtime), Refills(s) 0 Start Date: 10/31/20 Status: OrderedTylenol PM Extra Strength (5 sources)Tylenol PM Extra Strength Activezolpidem tartrate 5 mg oral tablet (5 sources)gamma-Aminobutyric Acid-ergic Agonistzolpidem (AMBIEN) 5 mg tablet Take 5 mg by mouth. ActiveComment on above:Take 5 mg by mouth. Completed/Discontinued Medications MedicationDrug Class(es)DatesSig (Normalized)Sig (Original)acetaminophen 250 mg / aspirin 250 mg / caffeine 65 mg oral tablet (20 sources)Platelet Aggregation Inhibitor, Nonsteroidal Anti-inflammatory Drug, Central Nervous System Stimulant, MethylxanthineStart: 06-14-2024 End: 90-81-5691sosy 1 tablet by mouth every four to six hours as needed Dzsgztp-Klotaiznbzkub-Iqzxddrw (Excedrin Migraine) 250-250-65 mg tablet Discontinued 1 TAB PO EVERY4-6 HOURS as needed July 20, 2024 1:00am July 26, 2024 8:40amacetaminophen 500 mg / diphenhydrAMINE hydrochloride 25 mg oral tablet (20 sources)Histamine-1 Receptor AntagonistStart: 06-14-2024 End: 67-18-7535avrb 2 tablets by mouth once daily at bedtime as needed Diphenhydramine-Acetaminophen (Tylenol Pm Extra Strength) 25-500 mg tablet Discontinued 2 TAB PO Daily at bedtime as needed July 20, 2024 1:00am July 26, 2024 8:40amStart: 04-70-8014neuw 1 tablet by mouth once daily at bedtime Tylenol PM Oral, Once a day (at bedtime), Refill(s) 0, 250mg- 2 tabs at HS Start Date: 11/08/23 Status: Orderedtake 25-500 mg by mouth once as needed diphenhydrAMINE-acetaminophen (Tylenol PM) 25-500 MG per tablet Take 1 tablet by mouth as needed atbedtime for sleep Activeacetaminophen 325 mg / HYDROcodone bitartrate 5 mg oral tablet (20 sources)Opioid AgonistStart: 07-20-2024 End: 35-46-8255yioc 1 tablet by mouth twice daily as neededHydrocodone- Acetaminophen 5-325 mg tablet Discontinued 1 TAB PO Twice daily as needed July 20, 2024 1:00am July 26, 2024 8:41amStart: 07-17-2024 End: 51-98-6819mnno 1 tablet by mouth every twelve hours as needed for pain Hydrocodone-Acetaminophen 5-325 mg tablet Discontinued 1 TAB PO Every 12 hours as needed for pain July 17, 2024 August 09, 2024 9:35qn530 actuat albuterol 0.09 mg/actuat dry powder inhaler (20 sources)beta2-Adrenergic AgonistStart: 06-14-2024 End: 40-75-8040Ormxvjqoo Sulfate 90 mcg/actuation aerosol powdr breath activated Discontinued 1 INH INHALATION EVERY 4-6 HOURS as needed July 20, 2024 1:00am July 26, 2024 8:39amamLODIPine 5 mg oral tablet (20 sources)Dihydropyridine Calcium Channel BlockerStart: 04-24-2020 End: 21-47-7584lqqq 1 tablet by mouth once dailyAmlodipine 5 mg tablet Discontinued 5 MG PO Daily July 20, 2024 1:00am July 26, 2024 8:39amComment on above:Take 5 mg by mouth.aspirin 81 mg chewable tablet (20 sources)Platelet Aggregation Inhibitor, Nonsteroidal Anti-inflammatory Drug Start: 06-14-2024 End: 67-08-5649zuyt 1 tablet by mouth once dailyAspirin 81 mg tablet,chewable Discontinued 81 MG PO Daily July 20, 2024 1:00am July 26, 2024 8:39amtake 1 tablet by mouth once dailyaspirin 81 MG EC tablet Take 81 mg by mouth Daily ActiveComment on above:Take 81 mg by mouth.cefpodoxime 200 mg oral tablet (10 sources)Cephalosporin AntibacterialStart: 08-21-2024 End: 09-00-0993sfzt 1 tablet by mouth twice daily at mealtimeCefpodoxime 200 mg tablet Discontinued 200 MG PO Twice daily 6 August 21, 2024 12:00am October 03, 2024 10:22am must administer with a meal/foodclopidogrel 75 mg oral tablet (20 sources)P2Y12 Platelet InhibitorStart: 04-24-2020 End: 48-26-0253lqnb 1 tablet by mouth once dailyClopidogrel (Plavix) 75 mg tablet Discontinued 75 MG PO Daily July 20, 2024 1:00am July 26, 2024 8:40amclotrimazole 10 mg oral lozenge (13 sources)Azole AntifungalStart: 08-03-2024 End: 60-18-6501Hhopzphmsxqv 10 mg joyce Discontinued 10 MG MUCOUS MEM Five times daily 70 14 August 03, 2024 12:00am August 17, 2024 11:32am use for 10 days, if symptoms persist, then complete the 14 days dispenseddexamethasone 6 mg oral tablet (6 sources)CorticosteroidStart: 93-24-8009sgtf 1 tablet by mouth every twenty- four hoursdexAMETHasone 6 MG 1 tablet Orally Once a day for 5 day(s) Nov, Not-Taking/PRNDocusate (5 sources)Docusate Sodium Not-Taking/PRNDocusate Sodium Not-TakingDocusate Sodium Activedorzolamide 20 mg/ml ophthalmic solution (20 sources)Carbonic Anhydrase InhibitorStart: 07-20-2024 End: 02-92-0663zfrt 1 drop(s) into the eye(s) three times dailyDorzolamide 2 % drops Discontinued 1 DROPS EYE-BOTH Three times daily July 20, 2024 1:00am July 26, 2024 8:40amStart: 07-20-2024 End: 52-08-3649wsop 1 drop(s) into the eye(s) three times dailyDorzolamide 2 % drops Discontinued 1 DROPS EYE-BOTH Three times daily July 20, 2024 1:00am July 26, 2024 8:40amStart: 97-45-3154nfwm 1 drop(s) into the eye(s) three times dailydorzolamide (Trusopt) 2 % ophthalmic solution Administer 1 drop into both eyes 3 times a day. 07/27/2023 ActiveStart: 32-05-5264caum 1 drop(s) into the eye(s) twice dailyStart: 10-33-9871Hccygledptp 2 % drops Active DROPS OPHTHALMIC July 26, 2023 11:00pmStart: 91-36-8908Zgnzmzhewzq Active DROPS OPHTHALMIC July 27, 2023 12:00amStart: 42-65-4074tqlq 1 drop(s) into the eye(s) twice dailydorzolamide ophthalmic 2% solution 1 drop(s), OPTH, BID, Refill(s) 0, each eye Start Date: 04/24/20 Status: Ordered Repeat number: 1Start: 80-62-4777lpxl 1 drop(s) into the eye(s) twice dailydorzolamide ophthalmic 2% solution 1 drop(s), OPTH, BID, Refill(s) 0, each eye Start Date: 04/24/20 Status: Orderedtake 1 drop(s) into the eye(s) in the morning, then take 1 drop(s) into the eye(s) in the evening, then take 1 drop(s) into the eye(s) at bedtime dorzolamide (Trusopt) 2 % ophthalmic solution 1 drop in the morning and 1 drop in the evening and 1drop before bedtime. ActiveDorzolamide HCl 2 % Ophthalmic for 90 ActiveDorzolamide HCl 2 % Ophthalmic for 90 ActiveDorzolamide HCl 2 % Ophthalmic for 90 Activedoxycycline monohydrate 100 mg oral capsule (20 sources)Tetracycline-class DrugStart: 07-12-2024 End: 52-15-8244agjj 1 capsule by mouth twice dailyDoxycycline Monohydrate 100 mg capsule Discontinued 100 MG PO Twice daily July 20, 2024 1:00am July 26, 2024 8:40amfamotidine 20 mg oral tablet (20 sources)Histamine-2 Receptor AntagonistStart: 07-27-2023 End: 66-27-3506cxcs 1 tablet by mouth once dailyFamotidine 20 mg tablet Discontinued 20 MG PO Daily July 20, 2024 1:00am July 26, 2024 8:41am fluticasone propionate 0.05 mg/actuat metered dose nasal spray (20 sources)CorticosteroidStart: 44-75-5854opabhrloirk Nasal 0.05 mg/inh [place] See Instructions, 16 gm, Refill(s) 0, USE 1 SPRAY IN BOTH NOSTRILS TWICE DAILY, [facility], 160, cm, 01/10/24 9:43:00 EDT, Height/Length Dosing, 77.8, kg, 01/10/24 9:43:00 EDT, Weight Dosing Start Date: 01/18/24 Status: Ordered Quantity: 16.0 Unit: g Repeatnumber: 1Start: 08-24-2022 End: 54-63-4667beqo 1 spray(s) nasal route once dailyFluticasone Propionate 50 mcg/actuation spray,suspension Discontinued 2 SPRAY INTRANASAL Daily July 20, 2024 1:00am July 26, 2024 8:41am administer into each nostrilStart: 05-78-7554hldegdblnej (FLONASE) 50 mcg/actuation nasal spray 1 [place]. 08/24/2022 ActiveStart: 83-66-3748rpry 1 spray(s) nasal route twice dailyFlonase 0.05 mg/inh [place] 1 spray(s), Nasal, BID, 16 gram, Refill(s) 0, each nostril, [facility] ([facility] ), 167.6, cm, 08/24/22 8:10:00 EDT, Height/Length Dosing, 83.4, kg, 08/24/22 8:10:00 EDT, Weight Dosing Start Date: 08/24/22 Status: OrderedStart: 06-91-7697Nekof: 38-58-7006pbwu 50 ug by inhalation twice dailyfluticasone propionate 50 mcg, Inhalation, BID, Refills(s) 0 Start Date: 04/24/20 Status: Orderedtake 1 spray(s) nasal route once daily fluticasone (Flonase) 50 MCG/ACT nasal spray Administer 1 spray into each nostril Daily Shake gently. Before first use, prime pump. After use, clean tip and replace cap. Activetake 1 spray(s) nasal route in the morningfluticasone (Flonase) 50 MCG/ACT nasal spray Administer 1 spray into each nostril in the morning. Shake gently. Before first use, prime pump. After use, clean tip and replace cap.. ActiveFluticasone Propionate 50 MCG/ACT Nasal for 30 ActiveComment on above:1 [place].furosemide 20 mg oral tablet (20 sources)Loop DiureticStart: 04-24-2020 End: 30-61-8200wcdk 1 tablet by mouth once daily in the morningFurosemide 20 mg tablet Discontinued 20 MG PO Every morning July 20, 2024 1:00am July 2658:41amFurosemide ActiveComment on above:Take 20 mg by mouth.irbesartan 300 mg oral tablet (20 sources)Angiotensin 2 Receptor BlockerStart: 04-24-2020 End: 32-17-1795kuki 1 tablet by mouth once daily in the morningIrbesartan 300 mg tablet Discontinued 300 MG PO Every morning July 20, 2024 1:00am July 26, 2024 8:41amComment on above:Take 300 mg by mouth.24 hr isosorbide mononitrate 30 mg extended release oral tablet (20 sources)Nitrate VasodilatorStart: 68-98-7157bkyg 1 tablet by mouth every twenty-four hoursIsosorbide Mononitrate 30 mg tablet extended release 24 hr Active MG PO July 26, 2023 11:00pmStart: 04-24-2020 End: 22-81-4436gdax 1 tablet by mouth once daily in the morning, then take 1 tablet by mouth every twenty-four hoursIsosorbide Mononitrate 30 mg tablet extended release 24 hr Discontinued 30 MG PO Every morning July 27, 2023 12:00am July 26, 2024 8:42amComment on above:Take 30 mg by mouth.lactulose 667 mg/ml oral solution (14 sources)Osmotic LaxativeStart: 08-02-2024 End: 89-84-2028ledm 10 g by mouth once daily for constipationLactulose 10 gram/15 mL solution Discontinued 10 GM PO Daily as needed for constipation 450 30 August 02, 2024 12:00am August 20, 2024 6:06pm use everyday until you have a bowel movement daily.Start: 08-02-2024 End: 05-63-7562amzg 10 g by mouth once daily for constipationLactulose 10 gram/15 mL solution Discontinued 10 GM PO Daily as needed for constipation 450 30 August 02, 2024 12:00am August 20, 2024 6:06pm use everyday until you have a bowel movement daily.Start: 18-66-2157dhsw 10 g by mouth once daily for constipationLactulose 10 gram/15 mL solution Active 10 GM PO Daily as needed for constipation 450 30 August 02, 2024 12:00am use everyday until you have a bowel movement daily.latanoprost 0.05 mg/ml ophthalmic solution (20 sources)Prostaglandin AnalogStart: 07-20-2024 End: 35-35-7030ezre 1 drop(s) into the eye(s) once daily in the evening Latanoprost 0.005 % drops Discontinued 1 DROPS EYE-BOTH Every evening July 20, 2024 1:00am July 26, 2024 8:42amStart: 59-50-5375zqiq 1 drop(s) into the eye(s) once dailyLatanoprost Active DROPS OPHTHALMIC Daily July 27, 2023 12:00amStart: 16-73-9690dhcjxzcreaz Opth 0.005% Janee Refill(s) 0, 10 mL, 0 Refill(s) Start Date: 05/19/23 Status: Ordered Repeat number: 1Start: 05-19-2023 End: 43-97-5670lmlj 1 drop(s) into the eye(s) once daily in the evening Latanoprost 0.005 % drops Discontinued 1 DROPS EYE-BOTH Every evening July 20, 2024 1:00am July 26, 2024 8:42amStart: 54-85-4230vtbjiexhwgd (Xalatan) 0.005 % ophthalmic solution Administer 1 drop into both eyes. 05/19/2023 ActiveStart: 58-38-9807hpnzpelfqnk ophthalmic qPM, Refill(s) 0, Dry eyes Start Date: 04/24/20 Status: OrderedStart: 91-87-7210xporbflgdbn ophthalmic qPM, Refill(s) 0 Start Date: 04/24/20 Status: Orderedtake 1 drop(s) into the eye(s) at bedtime latanoprost (Xalatan) 0.005 % ophthalmic solution 1 drop at bedtime Activetake 1 drop(s) into the eye(s) once daily at bedtimelatanoprost (XALATAN) 0.005 % ophthalmic solution 1 Drop daily at bedtime. ActiveLatanoprost 0.005 % Ophthalmic for 90 ActiveLatanoprost 0.005 % Ophthalmic for 90 ActiveComment on above:1 Drop daily at bedtime.lidocaine 25 mg/ml / prilocaine 25 mg/ml topical cream (20 sources)Antiarrhythmic, Amide Local AnestheticStart: 07-20-2024 End: 49-52-5502Qnkkgynbi-Prilocaine 2.5-2.5 % cream Discontinued 2 GM TOPICAL as needed July 20, 2024 1:00am July 26, 2024 8:42amStart: 07-13-2024 End: 29-91-3808Eviwakohl-Prilocaine 2.5-2.5 % cream Discontinued 2 GM TOPICAL Once as needed for pain July 13, 2024 2:08pm October 03, 2024 10:23am Apply 1 hour prior to accessing port.Magic Mouthwash W/Lidocaine 240 Ml Bottle 240 mL bottle (20 sources)Start: 08-23-2024 End: 12-72-5265acyk 10 mL by mouth four times daily as neededMagic Mouthwash W/Lidocaine 240 Ml Bottle 240 mL bottle Discontinued 10 ML PO Four times daily as needed for mucositis 240 August 23, 2024 10:14am October 03, 2024 10:23am Take 10ml by mouth, four times a day, as needed. [employer]. will call when they need refillStart: 09-73-1017ydig 10 mL by mouth four times daily as needed Magic Mouthwash W/Lidocaine 240 Ml Bottle 240 mL bottle Active 10 ML PO Four times daily as needed for mucositis 240 August 23, 2024 10:14am Take 10ml by mouth, four times a day, as needed. SWISH ANDSWALLOW. will call when they need refillStart: 07-20-2024 End: 51-02-8260qjjj 1 mL by mouth four times daily as neededMagic Mouthwash W/Lidocaine 240 Ml Bottle 240 mL bottle Discontinued ML PO Four times daily as needed 240 July 20, 2024 1:00am July 26, 2024 8:42amStart: 07-19-2024 End: 31-02-2971nkdf 10 mL by mouth four times daily as neededMagic Mouthwash W/Lidocaine 240 Ml Bottle 240 mL bottle Discontinued 10 ML PO Four times daily as needed for mucositis July 19, 2024 1:00am August 20, 2024 6:07pm Take 10ml by mouth, four timesa day as needed. SWISH [employer] SWALLOW.Start: 07-19-2024 take 10 mL by mouth four times daily as neededMagic Mouthwash W/Lidocaine 240 Ml Bottle 240 mL bottle Active 10 ML PO Four times daily as needed for mucositis July 19, 2024 1:00am Take 10ml by mouth, four times a day as needed. SWISH [employer] SWALLOW.Start: 07-06-2024 End: 16-56-1364icez 10 mL by mouth four times daily as neededMagic Mouthwash W/Lidocaine 240 Ml Bottle 240 mL bottle Discontinued 10 ML PO Four times daily as needed for mucositis July 06, 2024 1:00am August 23, 2024 10:15am Take 10ml by mouth, four times a day, as needed. SWISH [employer] SWALLOW.Start: 40-34-1743qwlu 10 mL by mouth four times daily as neededMagic Mouthwash W/Lidocaine 240 Ml Bottle 240 mL bottle Active 10 ML PO Four times daily as needed for mucositis 240 July 06, 2024 1:00am Take 10ml by mouth, four times a day, as needed. SWISH AND SWALLOW.Start: 06-19-7479cqip 10 mL by mouth four times daily as neededMagic Mouthwash W/Lidocaine 240 Ml Bottle 240 mL bottle Active 10 ML PO Four times daily as needed for mucositis 240 July 06, 2024 12:00am Take 10ml by mouth, four times a day, as needed. SWISHAND SWALLOW.metFORMIN hydrochloride 500 mg oral tablet (20 sources)BiguanideStart: 25-46-5508lhau 1 tablet by mouth twice daily metFORMIN XR (Glucophage-XR) 500 MG 24 hr tablet Indications: Type 2 diabetes mellitus with hyperglycemia, without long-term current use of insulin ([facility]) TAKE 1 TABLET BY MOUTH TWICE DAILY 200 tablet2 05/01/2024 ActiveStart: 05-31-2023 End: 28-79-7399dysi 1 tablet by mouth once daily in the morningMetformin 500 mg tablet Discontinued 500 MG PO Every morning July 20, 2024 1:00am July 26, 2024 8:43amStart: 05-03-7295dkfz 1 tablet by mouth twice dailymetFORMIN XR (Glucophage-XR) 500 MG 24 hr tablet Indications: Type 2 diabetes mellitus with hyperglycemia, without long-term current use of insulin ([facility]) TAKE 1 TABLET BY MOUTH TWICE DAILY 180 tablet 3 05/18/2023 ActiveStart: 34-54-8196oeso 1 mg by mouth twice dailymetformin 500 mg ER Tab mg tab(s), Oral, BID, Refills(s) 0, High blood sugar Start Date: 04/24/20 Status: Orderedtake 1 tablet by mouth once dailymetFORMIN XR 500 mg 24 hr tablet Take 1 tablet (500 mg) by mouth once daily. ActiveComment on above:Take 500 mg by mouth.5 ml midazolam 1 mg/ml injection (1 source)BenzodiazepineStart: 06-05-2024 End: 95-49-3758byheqavbeiw, Once PRN Procedure, Starting on Wed06/05/24 at 1345, For 1 dose, Intraproceduremometasone furoate 1 mg/ml topical cream (20 sources)CorticosteroidStart: 06-14-2024 End: 97-76-8216Yhazrplruo 0.1 % cream Discontinued 1 APPLIC TOPICAL Daily July 20, 2024 1:00am July 26, 2024 8:43amMultivitamin (One Daily Multivitamin) tablet (15 sources)Start: 07-20-2024 End: 63-36-3975citc 1 tablet by mouth once dailyMultivitamin (One Daily Multivitamin) tablet Discontinued 1 TAB PO Daily July 20, 2024 1:00am July 26, 2024 8:43amnystatin 505962 unt oral tablet (20 sources)Polyene AntifungalStart: 08-17-2024 End: 55-63-6258idld 1 tablet by mouth four times dailyNystatin 500,000 unit tablet Discontinued 796004 UNIT PO Four times daily 40 September 14, 2024 9:24am November 23, 2024 10:01amStart: 08-02-2024 End: 89-39-7556Kgalnfqv 100,000 unit/mL suspension Discontinued 757038 UNIT PO Four times daily 224 July 12:00am August 20, 2024 6:07pm administer 1/2 of dose in each side of the mouthNystatin 100,000 unit/mL suspension (8 sources)Start: 08-02-2024 End: 58-32-9235Dpfnmohr 100,000 unit/mL suspension Discontinued 701276 UNIT PO Four times daily 224 July 12:00am August 20, 2024 6:07pm administer 1/2 of dose in each side of the mouthStart: 79-46-7989Btcwohzu 100,000 unit/mL suspension Active 731684 UNIT PO Four times daily 224 August 02, 2024 12:00am administer 1/2 of dose in each side of the mouthOLANZapine 2.5 mg oral tablet (20 sources)Atypical AntipsychoticStart: 08-09-2024 End: 10-60-0900tfnt 1 tablet by mouth twice dailyOlanzapine 2.5 mg tablet Discontinued 2.5 MG PO Twice daily August 09, 2024 12:00am November 23, 2024 10:02amtake 2 tablets by mouth at bedtimeOLANZapine (ZyPREXA) 2.5 MG tablet Take 5 mg by mouth at bedtime Activeomeprazole 40 mg delayed release oral capsule (20 sources)Proton Pump InhibitorStart: 08-24-2022 End: 47-07-3419bwgb 1 capsule by mouth once daily in the morningOmeprazole 40 mg capsule,delayed release(DR/EC) Discontinued 40 MG PO Every morning July 2051:00am July 26, 2024 8:43amStart: 62-52-5116ludopudxrt Oral, Daily, Refills(s) 0 Start Date: 04/27/22 Status: OrderedOmeprazole ActiveComment on above:Take 40 mg by mouth.ondansetron 4 mg disintegrating oral tablet (20 sources)Serotonin-3 Receptor AntagonistStart: 07-20-2024 End: 39-59-5120cwss 2 tablets by mouth every eight hoursOndansetron 4 mg tablet,disintegrating Discontinued 8 MG PO Every 8 hours July 20, 2024 1:00am July 26, 2024 8:43amStart: 19-61-5747edgx 1 tablet by mouth every eight hours as needed for nausea and vomitingoxyCODONE hydrochloride 1 mg/ml oral solution (20 sources)Opioid AgonistStart: 47-53-6614fywx 7.5 mg by mouth every eight hours as needed for painoxycodone 5 mg/5 mL oral solution take 7.5 mg q 8 hrs as needed for pain, Refills(s) 0 Start Date: 08/22/24 Status: Ordered Repeat number: 1Start: 07-20-2024 End: 07-56-7399ncml 10 mg by mouth every four hours as needed for painOxycodone 5 mg/5 mL solution Discontinued 10 MG PO Every 4 hours as needed for pain 750 August 16, 2024 September 21, 2024 3:02pmStart: 07-19-2024 End: 54-77-8798bozj 5 mg by mouth every four to six hours as neededOxycodone 5 mg/5 mL solution Discontinued 5 MG PO EVERY 4-6 HOURS as needed July 20, 2024 1:00am July 26, 2024 8:44amStart: 05-11-2024 End: 72-13-9658pvpe 1 tablet by mouth every six hours for painoxyCODONE (Roxicodone) 5 mg immediate release tablet Indications: Acute postoperative pain Take 1 tablet (5 mg) by mouth every 6 hours if needed for severe pain (7 - 10) for up to 1 day. 4 tablet 05/11/2024 05/12/2024 ActivePrazosin (5 sources)alpha-Adrenergic BlockerPrazosin HCl Not-Taking/PRNPrazosin HCl Not-TakingPrazosin HCl Activeprochlorperazine 10 mg oral tablet (20 sources)PhenothiazineStart: 06-14-2024 End: 34-39-5847hsgj 1 tablet by mouth every eight hours as needed Prochlorperazine Maleate (Compazine) 10 mg tablet Discontinued 10 MG PO Every 8 hours as needed July 20, 2024 1:00am July 26, 2024 8:44ampsyllium 400 mg oral capsule (20 sources)Start: 03-10-2023 End: 19-79-9000nimy 3 capsules by mouth once dailypsyllium (Metamucil) 3.4 gram packet Take 3 capsules by mouth once daily. 03/10/2023 12/13/2024 Discontinued (Med List Cleanup)Start: 03-10-2023 End: 87-05-6275Leueckjb Husk (Fiber (Psyllium Husk)) 0.4 gram capsule Discontinued 0.4 GM PO Daily July 2051:00am July 26, 2024 8:44amStart: 23-22-4787coke 3 capsules by mouth once dailypsyllium (Metamucil 3 in 1 Daily Fiber) 400 MG capsule Take 3 capsules by mouth Daily 03/10/2023 ActiveStart: 12-34-2672Xliuifffo Refills(s) 0, Constipation Start Date: 03/10/23 Status: OrderedStart: 10-99-7934Nmtiokrlj Refills(s) 0 Start Date: 03/10/23 Status: OrderedPsyllium Husk (Fiber (Psyllium Husk)) 0.4 gram capsule (20 sources)Start: 07-20-2024 End: 26-71-4959Octmdgar Husk (Fiber (Psyllium Husk)) 0.4 gram capsule Discontinued 0.4 GM PO Daily July 2051:00am July 26, 2024 8:44amStart: 06-22-2024 End: 33-71-0334Dmdkatlt Husk (Fiber (Psyllium Husk)) 0.4 gram capsule Discontinued 0.4 GM PO Daily June 22, 2024 1:00am August 20, 2024 6:08pm Start: 36-64-1635Cfzqphhw Husk (Fiber (Psyllium Husk)) 0.4 gram capsule Active 0.4 GM PO Daily June 22, 2024 1:00amStart: 03-50-3463Bimdyqcu Husk (Fiber (Psyllium Husk)) 0.4 gram capsule Active 0.4 GM PO Daily June 22, 2024 12: 00amrosuvastatin calcium 10 mg oral tablet (20 sources)HMG-CoA Reductase InhibitorStart: 04-24-2020 End: 34-72-2166xugg 1 tablet by mouth once daily in the eveningRosuvastatin 10 mg tablet Discontinued 10 MG PO Every evening July 20, 2024 1:00am July 26, 2024 8:44amCrestor ActiveComment on above:Take 10 mg by mouth.sennosides, jail 8.6 mg oral tablet (7 sources)Start: 08-02-2024 End: 82-86-4587muut 1 tablet by mouth once daily as needed for constipation Sennosides (Black-Draught Lax-Senna) 8.6 mg tablet Discontinued 8.6 MG PO Twice daily as needed forconstipation 60 August 02, 2024 12:00am November 23, 2024 10:02am Use if no bowel movement dailyStart: 05-11-2024 End: 89-19-1203twpq 1 tablet by mouth once dailysennosides (Senokot) 8.6 mg tablet Indications: Acute postoperative pain Take 1 tablet (8.6 mg) by mouth once daily for 2 days. 2 tablet 05/11/2024 05/13/2024 Activesotalol hydrochloride 80 mg oral tablet (20 sources)AntiarrhythmicStart: 58-98-9935vbzpmzl (Betapace) 80 mg tablet Take 1 half tablet by mouth 2 times a day. 07/27/2023 ActiveStart: 07-27-2023 End: 78-02-2245Auhkkgq 80 mg tablet Discontinued 40 MG PO Twice daily July 20, 2024 1:00am July 26, 2024 8:44amStart: 87-93-5644qqoa 1 tablet by mouth once dailySotalol 80 mg tablet Active 80 MG PO Daily July 26, 2023 11:00pmStart: 80-19-6405pdcj 0.5 tablet by mouth twice dailysotalol (Betapace) 80 mg tablet Take 0.5 tablets (40 mg) by mouth 2 times a day. 07/27/2023 ActiveComment on above:Take 80 mg by mouth.sucralfate 100 mg/ml oral suspension (20 sources)Aluminum ComplexStart: 09-14-2024 End: 55-69-4064htaj 1 mL by mouth three times dailySucralfate 100 mg/mL suspension Discontinued 10 ML PO Three times daily September 14, 2024 12:00am October 03, 2024 10:26amStart: 83-79-0812vkbeodbqth (CARAFATE) 1 gram tablet Take 1 g by mouth. 12/15/2022 ActiveStart: 88-80-8703gqfertdzfo 1 g Tab Refills(s) 0, Control of stomach acid Start Date: 12/15/22 Status: OrderedStart: 04-27-2022 sucralfate 1 g Tab gm tab(s), Oral, QIDACHS, Refills(s) 0 Start Date: 04/27/22 Status: OrderedSucralfate Not-Taking/PRNSucralfate Not-TakingSucralfate Active Comment on above:Take 1 g by mouth.temazepam 15 mg oral capsule (6 sources)Benzodiazepinetake 1 capsule by mouth every twenty-four hours Temazepam 15 MG 1 capsule at bedtime as needed Orally Once a day Not-Taking/PRN tiZANidine 4 mg oral capsule (20 sources)Central alpha-2 Adrenergic AgonistStart: 07-20-2024 End: 52-48-5229okwf 1 capsule by mouth once daily in the evening as needed Tizanidine 4 mg capsule Discontinued 4 MG PO Every evening as needed July 20, 2024 1:00am July 26, 2024 8:45amStart: 02-21-2021 End: 38-81-1094eleq 1 tablet by mouth once daily in the eveningTizanidine 4 mg tablet Discontinued 4 MG PO Every evening July 27, 2023 12:00am November 29, 2024 11:34am End: 15-61-6216hiFGVeffne HCl (ZANAFLEX) 4 mg capsule Take 4 mg by mouth. Active tiZANidine HCl ActiveComment on above:Take 4 mg by mouth.zonisamide 25 mg oral capsule (20 sources)Anti-epileptic AgentStart: 53-00-8522Nxndwiutit Active MG PO July 27, 2023 12:00amStart: 02-15-2023 End: 14-49-0588fing 1 capsule by mouth twice dailyZonisamide 25 mg capsule Discontinued 25 MG PO Twice daily July 20, 2024 1:00am July 26, 2024 8:45am Problems Active Problems Problem ClassificationProblemDateDocumented DateEpisodic/ChronicAortic; peripheral; and visceral artery aneurysms (20 sources)Ectasia of thoracic aorta; Translations: [Thoracic aortic ectasia] Onset: [id number] on above:added per 11/05/2023 query response.Cancer of head and neck (20 sources)Malignant tumor of floor of mouth; Translations: [Malignant neoplasm of floor of mouth, unspecified]Onset: [id number] of prostate (20 sources)Malignant tumor of prostate; Translations: [Malignant neoplasm of prostate]Onset: [id number]; other and unspecified primary (2 sources)History of malignant neoplasm of head and/or neck; Translations: [Personal history of malignant neoplasm of other organs and systems]09-11-2024 EpisodicCancer; other and unspecified primary (2 sources)Personal history of malignant neoplasm of other organs and systems; Translations: [Personal historyof malignant neoplasm of other organs and systems]Onset: 09-23-5852JghqcrbcXqjhtdh dysrhythmias (20 sources)Ventricular tachycardia; Translations: [Ventricular tachycardia] Onset: [id number] of device; implant or graft (7 sources)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; Translations: [Atherosclerosis of coronary artery bypass graft(s) without angina pectoris]Onset: [id number] associated with dizziness or vertigo (4 sources)Vertigo; Translations: [Dizziness and giddiness]40-02-9738Ykkpzxbo Conduction disorders (20 sources)Cardiac pacemaker in situ; Translations: [Presence of cardiac pacemaker]Onset: [id number] atherosclerosis and other heart disease (20 sources)Coronary arteriosclerosis; Translations: [Atherosclerotic heart disease of teller coronary artery without angina pectoris]Onset: 01-20-2019 ChronicComment on above:noted in 11/10/2022 Cardiology Consult Note page 11. added per [facility] policy.Diabetes mellitus with complications (20 sources)Neuropathy due to diabetes mellitus; Translations: [Autonomic neuropathy due to type 2 diabetes mellitus]Onset: [id number] Diabetes mellitus without complication (20 sources)Diabetes mellitus; Translations: [Type 2 diabetes mellitus without complication]Onset: [id number] on above:linked DM with HLD per [facility] policy.Disorders of lipid metabolism (20 sources)Hypercholesterolemia; Translations: [Pure hypercholesterolemia, unspecified]Onset: 198668-96-1009JxvitliAhofwriqx of teeth and jaw (2 sources)Ulceration of gingivae; Translations: [Other specified disorders of gingiva and edentulous alveolarridge]42-92-2245EychhrmyOqcvhhuznjhzbl and diverticulitis (20 sources)Diverticular disease; Translations: [Diverticulosis of intestine, part unspecified, without perforation or abscess without bleeding]Onset: 258650-19-4197BiltnhsJrnogikrss disorders (20 sources)Gastroesophageal reflux disease with apnea; Translations: [Gastro- esophageal reflux disease withoutesophagitis]Onset: 729447-36-8925Bfkqzle Essential hypertension (20 sources)Hypertensive disorder; Translations: [Essential hypertension]Onset: 983152-14-7074AkwekmyAgpux of unknown origin (16 sources)Fever; Translations: [Fever, unspecified]32-02-4017Ujuwqyfg Genitourinary symptoms and ill-defined conditions (1 source)Delay when starting to pass -20-4899QlygjbjdVhrsatci (20 sources)Glaucoma; Translations: [Unspecified glaucoma]Onset: 04-03-2022 53-01-2861FuctyfiKymffaaz; including migraine (20 sources)Migraine; Translations: [Migraine, unspecified, not intractable, without status migrainosus]Onset: 913567-02-4548FbghpgdXilgm valve disorders (20 sources)Aortic valve regurgitation; Translations: [Nonrheumatic aortic (valve) insufficiency]Onset: 749528-45-1407RjfqovxGilsdebj disorders (18 sources)Immunosuppression; Translations: [Immunodeficiency, unspecified] Onset: 146677-93-4363TekicjsQfmdrda on above:noted in 08/20/2024 [facility] [place] page 5. added per OP CDI policy.Joint disorders and dislocations; trauma-related (20 sources)Derangement of right knee; Translations: [Unspecified internal derangement of right knee]Onset: 639959-36-5693CpbynnjFgmelfg (20 sources)Onychomycosis; Translations: [Tinea unguium]Onset: 01-27-2024 Resolved: 943707-02-0856WobdyllqWjsbtimul of unspecified nature or uncertain behavior (4 sources)Benign neoplasm of pancreas; Translations: [Neoplasm of unspecified behavior of digestive system]57-32-9670MiyzeihxEephukqwlbd deficiencies (20 sources)Vitamin D deficiency; Translations: [Vitamin D deficiency, unspecified]Onset: 667075-85-7748SoxouvbMlptxtkdvixshh (20 sources)Osteoarthritis; Translations: [Arthritis of right ankle]Onset: 556621-41-4939KbbcumhTgxbr aftercare (1 source)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; Translations: [OTH CORRECTION CURRENT DRUG THERAPY]Onset: 79-02-5369IzsschttTieab aftercare (1 source)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 (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; Translations: [CORRECTION CURRENT USE OF ASPIRIN]Onset: 56-91-7958VnjrovrzFjbou aftercare (1 source)skilled nursing (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 of antithrombotics/antiplatelets; Translations: [CORRECTION ANTITHROMBOT/ANTIPLATLETS]Onset: 24-02-6207Yinncrjs Other aftercare (1 source)rat 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 (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 of oral hypoglycemic drugs; Translations: [CORRECTION USE ORAL HYPOGLYCEMIC DX]Onset: 22-66-2065GnmxlghtRjyis aftercare (19 sources)Patient encounter status; Translations: [Encounter for palliative care]86-43-7963PztmopzfTnqqg bone disease and musculoskeletal deformities (20 sources)Osteochondritis dissecans of right ankle; Translations: [Osteochondritis dissecans, right ankle andjoints of right foot]Onset: 404486-55-2982NbosargNbfzi circulatory disease (1 source)Raynaud's syndrome without gangrene; Translations: [RAYNAUDS SYNDROME WITHOUT GANGRENE]Onset: 01-35-4759IijtshoIsebi ear and sense organ disorders (20 sources)Hearing loss; Translations: [Unspecified hearing loss, unspecified ear]Onset: 725890-68-3276AwmbvsfBqfxk ear and sense organ disorders (2 sources)Sensorineural hearing loss, bilateral; Translations: [Sensorineural hearing loss, bilateral]68-70-6358ObntccvNmpjb ear and sense organ disorders (1 source)Impacted cerumen, bilateral; Translations: [Impacted cerumen] 53-36-1737WbclgrzwKbxyw ear and sense organ disorders (2 sources)Bilateral tinnitus; Translations: [Tinnitus, bilateral]06-23-2024 EpisodicOther gastrointestinal disorders (1 source)Intestinal malabsorption; 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]Onset: 96-56-2512LchwaxkFglyo gastrointestinal disorders (20 sources)Non-infective diarrhea; 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]Onset: 077147-27-6102GudeilzBvqge gastrointestinal disorders (1 source)Gastrostomy present; Translations: [Gastrostomy status]12-13-2024 ChronicOther gastrointestinal disorders (2 sources)Gastrostomy status; Translations: [Gastrostomy status (Multi)]Onset: 25-54-1408YtdhixfQatex gastrointestinal disorders (1 source)Mscudnpxi00-71-0682IpgswoxaGliun gastrointestinal disorders (6 sources)Hard csred41-12-4169HlmmguxiSdwah gastrointestinal disorders (1 source)Digestive system finding; Translations: [Other specified symptoms and signs involving the digestivesystem and abdomen]Onset: 92-65-2775UuwqirwcDeufd gastrointestinal disorders (2 sources)Abnormal feces; Translations: [Other fecal abnormalities]Onset: 83-96-7843ItiqvabiKnnor gastrointestinal disorders (3 sources)Loose -07-0035TyddhxumPurtp gastrointestinal disorders (1 source)Non-infective kuufrhja66-17-7184ElhktptzCgjce gastrointestinal disorders (3 sources)Swollen abdomen; Translations: [Abdominal distension (gaseous)]Onset: 39-02-0489ItpunpfiUevkj gastrointestinal disorders (9 sources)Xiivwsco45-84-9615GmxjbajfDwqjt gastrointestinal disorders (20 sources)Constipation; Translations: [Constipation, unspecified]08-02-2024 EpisodicComment on above:Secondary to opioids, and decreased oral intakeOther gastrointestinal disorders (1 source)Therapeutic opioid induced ogwhqqwfllpt21-62-7791WvvswcxzNsaddsm on above:noted in 08/16/2024 Palliative Care Consult Note page 5. added per OP CDI policy.Other gastrointestinal disorders (7 sources)Esophageal dysphagia; Translations: [Other dysphagia]09-27-2024 EpisodicOther lower respiratory disease (3 sources)Apnea, not elsewhere classifiedEpisodicOther lower respiratory disease (8 sources)Nodule of lung; Translations: [Solitary pulmonary nodule]09-20-2024 EpisodicOther nervous system disorders (20 sources)Polyneuropathy associated with another disorder; Translations: [Polyneuropathy in diseases classified elsewhere]Onset: 141567-13-3052 ChronicOther nervous system disorders (1 source)Polyneuropathy in diseases classified elsewhereChronicOther nervous system disorders (1 source)Other chronic pain; Translations: [OTHER CHRONIC PAIN]Onset: 15-36-5071OcnirjsRptxp nervous system disorders (20 sources)Carpal tunnel syndrome of left wrist; Translations: [Carpal tunnel syndrome, left upper limb]Onset: 712893-26-4270UaxxiwxEbqew nervous system disorders (20 sources)Carpal tunnel syndrome of right wrist; Translations: [Carpal tunnel syndrome, right upper limb]Onset: 635938-57-0349MhivacoJnoia nervous system disorders (20 sources)Neuropathy; Translations: [Polyneuropathy, unspecified]Onset: 434914-70-9712TeszfhjZulai nervous system disorders (20 sources)Normal pressure hydrocephalus; Translations: [(Idiopathic) normal pressure hydrocephalus]Onset: 947299-35-1120IqhtcqgQgkrj nervous system disorders (4 sources)Polyneuropathy; Translations: [Polyneuropathy, unspecified]02-16-2024 ChronicOther nervous system disorders (20 sources)Pain due to neoplastic disease; Translations: [Neoplasm related pain (acute) (chronic)]12-48-7883BnzabnyVetoers on above:Jeremie reports increasing severity of throat pain that is significantly interfering with oral intake. He does have some thrush on the tongue and oropharynx. He is using Magic Mouthwash and Dr. Gray has advised him to increase frequency of use. Poor response with oxycodone 10 mg 3 times daily. Denies sedation.Continue Magic Mouthwash without change F/U one week at time of radiationnoted in 08/16/2024 Palliative Care Consult Note page 5. added per OP CDI policy.Other nervous system disorders (20 sources)Neoplasm related pain (acute) (chronic); Translations: [Neoplasm related pain (acute) (chronic)]Onset: 740251-85-7421NojaispVnamf nervous system disorders (17 sources)Numbness of bmko61-06-1274XdxmrsgdCjcek nervous system disorders (17 sources)Acute postoperative pain; Translations: [Other acute postprocedural pain]50-57-2934KevsqacgVtmcx nervous system disorders (1 source)Other acute postprocedural pain; Translations: [Other acute postprocedural pain]Onset: 52-73-4658YniulicgTybzv non-traumatic joint disorders (4 sources)Other instability, right ankle; Translations: [OTHER INSTABILITY RIGHT ANKLE]Onset: 34-60-0038PylgcuqaPyimg nutritional; endocrine; and metabolic disorders (1 source)Body mass index 25-29 - okkpoclhhd63-64-9952PgcfgmgrOusnx screening for suspected conditions (not mental disorders or infectious disease) (1 source)Screening for malignant neoplasm of colon done; Translations: [Encounter for screening for malignant neoplasm of colon]Onset: 02-25-2023 EpisodicOther upper respiratory infections (1 source)Acute upper respiratory infection, unspecified; Translations: [Acute upper respiratory infections of unspecified site]78-15-4591IpbultadLdccnjvxv; thrombophlebitis and thromboembolism (1 source)Personal history of other venous thrombosis and embolism; Translations: [PERS HX OTH VENOUS THROMBOSIS AND EMBO]Onset: 54-22-4582Jaszbiig Pneumonia (except that caused by tuberculosis or sexually transmitted disease) (1 source)Pneumonia (except that caused by tuberculosis or sexually transmitted disease); Translations: [PNEUMONIA D/T CORONAVIRUS DIS 2019]Onset: 09-28-2022 Residual codes; unclassified (18 sources)Sleep povcn66-23-9083LtaoqyiAmpiwyhu codes; unclassified (20 sources)Obstructive sleep apnea syndrome; Translations: [Obstructive sleep apnea (adult) (pediatric)]Onset: 444711-09-8059HkjmwpxLuhttsng codes; unclassified (20 sources)Daytime somnolence; Translations: [Other hypersomnia]Onset: 049278-19-6035TopedymXwzcgcuj codes; unclassified (8 sources)Obstructive sleep apnea (adult) (pediatric); Translations: [Obstructive sleep apnea (adult)(pediatric)]ChronicResidual codes; unclassified (2 sources)Other hypersomnia; Translations: [Excessive daytime sleepiness] ChronicResidual codes; unclassified (1 source)Sleep apnea, unspecified; Translations: [SLEEP APNEA UNSPECIFIED] Onset: 37-91-0724FmzaxogSxtaaomf codes; unclassified (20 sources)Central sleep apnea syndrome; 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]Onset: 834537-64-0353XoyylsyOpkxtuyq codes; unclassified (4 sources)Primary central sleep apnea; Translations: [Unspecified sleep apnea] 24-79-3059OiqgppwGqeyaukk codes; unclassified (1 source)Acquired absence of other genital organ(s); Translations: [ACQUIRED ABSENCE OTH GENITAL ORGANS]Onset: 20-15-0767DoduqruvXbrpddvd codes; unclassified (1 source)At risk for imbalanced nutrition, less than body requirements; Translations: [Other specified personal risk factors, not elsewhere classified] 76-96-7210HasopczeWqtwxahr codes; unclassified (2 sources)Other specified personal risk factors, not elsewhere classified; Translations: [Other specified personal risk factors, not elsewhere classified] Onset: 00-23-2138HhwiiociFssylbvsk and history of mental health and substance abuse codes (1 source)Xm-lqncyn20-16hthrtp50-30-1605FigrsqycYfbmxppxq malignancies (2 sources)Secondary malignant neoplasm of neck; Translations: [Secondary malignant neoplasm of other specified sites]87-02-2366FjkuorrGlbcutlpv malignancies (3 sources)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 and neck lymph node; Translations: [Secondary and unspecified malignant neoplasmof lymph nodes of head, face and neck]03-29-2024 ChronicSecondary malignancies (2 sources)Secondary malignant neoplasm of lymph nodes of neck; Translations: [Secondary and unspecified malignant neoplasm of lymph nodes of head, face and neck]67-34-0021OnyieuwEvfntzy on above:noted in 08/21/2024 [facility] [place] page 2. added per OP CDI policy.Secondary malignancies (2 sources)Secondary and unspecified malignant neoplasm of lymph nodes of head, face and neck; Translations: [Secondary and unspecified malignant neoplasm of lymph nodes of head, face and neck]Onset: 32-51-0423CfqlttrBezolrxzusp; intervertebral disc disorders; other back problems (20 sources)Spondylosis without myelopathy or radiculopathy, lumbar region; Translations: [Other intervertebraldisc degeneration, lumbar region]Onset: 29-76-3494TglussnQxthhrq on above:noted in 09/15/2023 Pain Management Consult note page 5. added per OP CDI policy.Substance-related disorders (20 sources)Hypnotic dependence; Translations: [Sedative, hypnotic or anxiolytic dependence, uncomplicated]Onset: 01-27-2024 Resolved: 19-44-5916MgcqzlxKlsflxugacda (4 sources)LOW BACK PAIN, UNSPECIFIED; Translations: [LOW BACK PAIN, UNSPECIFIED]Onset: 74-05-2171Zhdtjdedqdoe (8 sources)Patient encounter -44-8623Uebnhkfzvqeo (4 sources)A [facility] screening has identified you as FRAIL [...] Four Ways to Beat the Frailty Risk [email or web address]-akuind-wixc- sujj-wv-jcry-the-fra vzdh-nbwj22-88ydcx67-53-4061Rsassqtnlngg (1 source)Mild pulmonary iebvttijwxnt83-01-1601Kqqvzgv on above:added per 08/23/2024 query response.Unclassified (10 sources)Resume your Plavix tomorrowUnclassified (1 source)C10.9 - Malignant neoplasm of oropharynx, unspecifiedUrinary tract infections (1 source)Urinary tract infectious mahjqgl39-25-1466CktbbjheEhhty infection (10 sources)Disease caused by 2019-nCoV; Translations: [COVID-19]Onset: 09-22-2022 Past or Other Problems Problem ClassificationProblemDateDocumented DateEpisodic/ChronicAbdominal pain (20 sources)Lower abdominal pain; Translations: [Right flank pain]Onset: 04-03-2022 Resolved: 783203-83-4235EgdlmjrjHkcwmat tract disease (20 sources)Gallstone; Translations: [Calculus of gallbladder without cholecystitis without obstruction]Onset: 04-03-2022 Resolved: 812918-93-8148IcbnxdttCcfxph of prostate (20 sources)History of malignant neoplasm of prostate; Translations: [Personal history of malignant neoplasm ofprostate]Onset: 206933-39-3310Qurrglgy Coronary atherosclerosis and other heart disease (7 sources)Stented coronary artery; Translations: [Presence of coronary angioplasty implant and graft]Onset: 661444-60-1969ZqaeyhilCrnspvrs of mouth; excluding dental (14 sources)Ulcer of mouth; Translations: [Other forms of stomatitis]Onset: 363376-18-5258ReiprsqeYbnjojrbfttfec ulcer (except hemorrhage) (20 sources)Peptic ulcer; Translations: [Peptic ulcer, site unspecified, unspecified as acute or chronic, without hemorrhage or perforation]Onset: 04-03-2022 Resolved: 320956-29-4952HvmttuoLecxsbypgpmoz symptoms and ill-defined conditions (20 sources)Incontinence; Translations: [Incontinence without sensory awareness] Onset: 01-27-2024 Resolved: 493059-59-3163IbniuwdZahcwcztsaz (20 sources)Hemorrhoids; Translations: [Unspecified hemorrhoids]Onset: 237222-80-6588KnfcpvukUrombpbjrpgr conditions of male genital organs (20 sources)Prostatitis; Translations: [Inflammatory disease of prostate, unspecified]Onset: 246521-44-8504NrmnyxjeSzhishmspgiaj (20 sources)Lymphadenopathy; Translations: [Cervical lymphadenopathy]Onset: 284808-60-2687PruvvftfQdwsxr and vomiting (20 sources)Nausea; Translations: [Nausea]Onset: 460334-29-6990Mtgkgrgn Comment on above:noted in 08/16/2024 Palliative Care Consult Note page 5. added per OP CDI policy.Nonspecific chest pain (20 sources)Chest wall pain; Translations: [Other chest pain]Onset: 04-03-2022 Resolved: 225062-93-5136MomqexixNypbg aftercare (6 sources)Encounter for palliative care; Translations: [Encounter for palliative care]Onset: 535296-61-2397GufvbveqSudpc and unspecified benign neoplasm (20 sources)History of polyp of colon; Translations: [Personal history of colonic polyps]Onset: 40-04-9357WbqsuknjLhhpm and unspecified benign neoplasm (20 sources)Polyp of colon; Translations: [Polyp of colon]Onset: 01-27-2024 01-55-3913KxxvquxbGiqvw connective tissue disease (2 sources)Pain in left finger(s); Translations: [PAIN IN LEFT FINGERS]Onset: 11-29-2021 Resolved: 14-16-1561TlqvzbdzMhckx connective tissue disease (4 sources)Pain in right foot; Translations: [PAIN IN RIGHT FOOT]Onset: 02-17-8546ZazenaxnWousd connective tissue disease (3 sources)Pain in arm, unspecified; Translations: [PAIN IN ARM UNSPECIFIED] Onset: 82-39-5254CguksikfAfcpp connective tissue disease (1 source)Pain in left upper arm; Translations: [PAIN IN LEFT UPPER ARM]Onset: 68-84-1621McufifqbBqjiq connective tissue disease (1 source)Pain in right upper arm; Translations: [PAIN IN RIGHT UPPER ARM]Onset: 78-78-0068VvwbadciQgnax connective tissue disease (20 sources)Disorder of musculoskeletal system; Translations: [Other specified disorders of synovium, right ankle and foot]Onset: 798953-11-1983Pwnrtzxv Other connective tissue disease (20 sources)Pain in limb; Translations: [Pain in unspecified limb]Onset: 01-27-2024 Resolved: 438755-72-8577QclqqrmsWlosr diseases of veins and lymphatics (20 sources)Peripheral venous insufficiency; Translations: [Venous insufficiency (chronic) (peripheral)]Onset: 644893-92-3941NhcbfplwRgaeg gastrointestinal disorders (4 sources)Diarrhea, unspecified; Translations: [DIARRHEA UNSPECIFIED]Onset: 83-64-5049AgmleysaKalja gastrointestinal disorders (20 sources)Dysphagia; Translations: [Dysphagia, unspecified]Onset: 01-12-2023 90-78-8188LoajtpmdVhgqo gastrointestinal disorders (20 sources)Urgent desire for stool; Translations: [Fecal urgency]Onset: 01-12-2023 Resolved: 643897-01-9819UbtzbgpbGhaip gastrointestinal disorders (20 sources)Irregular bowel habits; Translations: [Other specified symptoms and signs involving the digestive system and abdomen]Onset: EpisodicOther gastrointestinal disorders (20 sources)Abdominal bloating; Translations: [Abdominal distension (gaseous)] Onset: 01-27-2024 Resolved: 997830-29-1344IsssspleZztwq gastrointestinal disorders (20 sources)Smearing feces; Translations: [Fecal smearing]Onset: 04-03-2022 Resolved: 753705-45-4964AnrvpfstCfgsp gastrointestinal disorders (20 sources)Constipation, unspecified; Translations: [Constipation, unspecified] Onset: 244860-41-1493DpnfgkxcAlstd gastrointestinal disorders (1 source)Dysphagia, unspecified; Translations: [Dysphagia, unspecified]Onset: 95-94-4762QbfjkjiiNapet nervous system disorders (20 sources)Entrapment of left ulnar nerve; Translations: [Lesion of ulnar nerve, left upper limb]Onset: 01-27-2024 Resolved: 651350-00-9192JffwrmxKxheh nervous system disorders (20 sources)Entrapment of right ulnar nerve; Translations: [Lesion of ulnar nerve, right upper limb]Onset: 01-27-2024 Resolved: 824494-24-0596BwvwnjdFkxuo nervous system disorders (1 source)Unspecified disturbances of skin sensation; Translations: [UNS DISTURBANCES OF SKIN SENSATION]Onset: 49-76-5064TdedlvtnKedoc nervous system disorders (20 sources)Paresthesia of skin; Translations: [Disturbance of skin sensation] Onset: 716704-07-3078QbsalqioYminy nervous system disorders (20 sources)Unsteady when standing; Translations: [Unsteadiness on feet]Onset: 01-27-2024 Resolved: 022689-76-9328RallojfoCrsjh non-epithelial cancer of skin (20 sources)Malignant neoplasm of skin; Translations: [Unspecified malignant neoplasm of skin, unspecified]Onset: 800047-02-6793XrbfcrpiRpbzx non- traumatic joint disorders (20 sources)Arthralgia of the ankle and/or foot; Translations: [Pain in right ankle and joints of right foot]Onset: 118125-71-4210IoizvaedAvgpp nutritional; endocrine; and metabolic disorders (20 sources)Body mass index 30+ - obesity; Translations: [Obesity, unspecified] Onset: 04-03-2022 Resolved: 353824-64-4040RkgqzodAeyzt nutritional; endocrine; and metabolic disorders (20 sources)Overweight in adulthood with body mass index of 25 or more but less than 30; Translations: [Body mass index (BMI) 29.0-29.9, adult]Onset: 01-27-2024 00-27-8039KmrcguyoNoyeq skin disorders (4 sources)Nail dystrophy; Translations: [NAIL DYSTROPHY]Onset: 06-11-2022 EpisodicOther skin disorders (1 source)Other nail disorders; Translations: [OTHER NAIL DISORDERS]Onset: 60-30-7408YjtlkenhRrwme skin disorders (20 sources)Mass of neck; Translations: [Localized swelling, mass and lump, neck]Onset: 988883-17-4803DvnlddbrSnocps media and related conditions (20 sources)Otitis media; Translations: [Otitis media, unspecified, unspecified ear]Onset: 04-14-2023 Resolved: 527299-91-8783WdrorsykOiuunwgnjp disorders (not diabetes) (20 sources)Cyst of pancreas; Translations: [Cyst of pancreas]Onset: 01-12-2023 EpisodicPneumonia (except that caused by tuberculosis or sexually transmitted disease) (17 sources)Pneumonia; Translations: [Pneumonia, unspecified organism]Onset: 554426-49-8873PeygfcpqOvomhlrb codes; unclassified (20 sources)FH: Stomach cancer; Translations: [Family history of malignant neoplasm of digestive organs]Onset: 222055-18-1105WbystkmiIbfluxak codes; unclassified (20 sources)Insomnia; Translations: [Insomnia, unspecified]Onset: 04-03-2022 44-83-7148PorivbfnBaviybms codes; unclassified (20 sources)Edema of lower extremity; Translations: [Localized edema]Onset: 502393-87-4772ZamuyfznSuuueasy codes; unclassified (19 sources)Difficult venous access; Translations: [Other specified health status]Onset: 954022-30-2573CxbbmzxlVlau and subcutaneous tissue infections (20 sources)Cellulitis of left toe; Translations: [Cellulitis and abscess of toe, unspecified]Onset: 01-27-2024 Resolved: 582356-59-2516KwiicwfaXokqzyishhr; intervertebral disc disorders; other back problems (20 sources)Muscle spasm of back; Translations: [Radiculopathy, cervical region] Onset: 56-82-4055XudhzoijAjfcbhvaaxzg (1 source)Paroxysmal ventricular tachycardia I47.29Unclassified (1 source)Acute cough R05.1Unclassified (1 source)LOW BACK PAIN, UNSPECIFIED; Translations: [LOW BACK PAIN, UNSPECIFIED] Onset: 78-44-9063Dezffjnvrlqb (7 sources)Onset: 04-07-2024 Resolved: Viral infection (20 sources)Disease caused by 2019-nCoV; Translations: [COVID-19]Onset: 11-10-2022 Resolved: 658194-74-2926Eafwizvy Results Test NameValueInterpretationReference RangeFacilityOrders Onlyon 02-06-2025 Orders [id number] Jeremie Bennett 1940 M Date Provider Department Center 02/06/2025 STACEY ERNANDEZ [facility] Family History Problem Relation Age of Onset Coronary artery disease Mother Kidney disease Mother Heart failure Mother Family Status - Relation Status Age at Mother Father DeceasedNormalUniSt. John of God HospitalOffice Visiton 58-70-6637Wfmqel-up [id number] Jeremie Bennett 1940 M Date Provider Department Center 12/05/2024 STACEY ERNANDEZ [facility] Family History Problem Relation Age of Onset Coronary artery disease Mother Kidney disease Mother Heart failure Mother Family Status - Relation Status Age at Mother Father Level of Service:41640 [place] OFFICE/OUTPATIENT ESTABLISHED LOW [facility]24 Ambulatory Visit SummaryAmbulatory Visit Summary JEREMIE BENNETT :1940 Visit Date:11/21/2024 [...] Film) fluticasone nasal (fluticasone Nasal 0.05 mg/inh [place]) furosemide (furosemide 20 mg Tab) irbesartan (irbesartan [...] Esophagogastroduodenoscopy (05/20/2020), Angioplasty, Cardiac pacemaker procedure, Cataract, Cholecystectomy,Colonoscopy, Hernia repair, Prostate excision, Tonsillectomy, Vasectomy. Discharge [...] fluticasone nasal (fluticasone Nasal 0.05 mg/ inh [place]) See instructions USE 1 SPRAY IN BOTH [...] to opioid therapy 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 associated with type 2 diabetes mellitus Diverticulosis FH: stomach cancer Former smo (more content not included)...[facility] Medicine Office/Clinic Noteon 19-28-0443Zn[facility]/Cl[facility] NoteFataunton [facility]Clinic Note Chief Complaint Subsequent Medicare Wellness Review of Systems PHQ Score Initial Depression Screen Score: 0 SCORE Physical Exam Vitals & Measurements HR: 59(Peripheral) BP: 110/58 SpO2: 94% HT: 160 cm HT: 63 in WT: 160.717 lb WT: 72.9 kg BMI: 28.48 Procedure I was in the office and available for consultation and to provide direct supervision at the time ofthis visit. I have provided supervision of the [...] of clutter to prevent tripping and/or falling. [place] Advance Directives reviewed, present at home. Encouraged [...] not monitor BP pressure at home. HTN stoplightreviewed with BP goal to be <140/90. Reviewed [...] maintain a healthy weight. (more content not included)...[facility] HospitalComment on above:Result Comment: Electronically Signed By: MARICRUZ TREVINO CNP\.br\Date and Time Signed: 11/21/24 16:03 EDT\.br\Electronically Co-Signed By: Monse Puckett\.br\Date and Time Co-Signed: 11/21/24 14:59EDT Alanine aminotransferase [Enzymatic activity/volume] in Serum or PlasmaOrdered By: Elif Carroll on 91-02-2299NRI [Catalytic activity/Vol]14 U/LNormal7-52 [facility] HospitalComment on above:Performed By: #### MG, SCAN CBC, CMP #### [facility] [address] [place] [address] USAAlbumin [Mass/volume] in Serum or Plasma by Bromocresol green (BCG) dye binding methoOrdered By: Elif Carroll on 51-54-2884Waqxtkg BCG dye [Mass/Vol]4.2 g/dL3.5-5.7FFayette County Memorial HospitalAlkaline phosphatase [Enzymatic activity/volume] in Serum or PlasmaOrdered By: Elif Carroll on 13-24-4464OTR [Catalytic activity/Vol]80 U/MRswihy50-288RidjzwmxzPromedica Flower HospitalComment on above:Performed By: #### MG, SCAN CBC, CMP #### [facility] [address] [place] [address] USAAspartate aminotransferase [Enzymatic activity/volume] in Serum or PlasmaOrdered By: Elif Carroll on 74-31-2356OHE [Catalytic activity/Vol]15 U/HDpenjt95-26TdjjqhcoiPromedica Flower HospitalComment on above: Performed By: #### MG, SCAN CBC, CMP #### [facility] [address] [place] [address] USABasophils [#/volume] in Blood by Automated countOrdered By: Elif Carroll on 01-05-8071Xggydjzkg (Bld) [#/Vol]0.0 10*3/uLNormal0.0-0.2 [facility] HospitalComment on above:Performed By: #### MG, SCAN CBC, CMP #### [facility] [address] [place] [address] USABasophils/100 leukocytes in Blood by Automated count Ordered By: Elif Carroll on 34-52-8831Gazpcdfqx/100 WBC (Bld)0.5 %Normal. [facility] HospitalComment on above:Performed By: #### MG, SCAN CBC, CMP #### [facility] [address] [place] [address] USABilirubin.total [Mass/volume] in Serum or PlasmaOrdered By: Elif Carroll on 87-12-6135Uradmttng [Mass/Vol]0.4 mg/dLNormal0.3-1.0 [facility] HospitalComment on above:Performed By: #### MG, SCAN CBC, CMP #### [facility] [address] [place] [address] USACalcium [Mass/volume] in Serum or PlasmaOrdered By: Elif Carroll on 86-86-5611Ddvacah [Mass/Vol]9.3 mg/dLNormal8.6-10.3FFayette County Memorial HospitalComment on above:Performed By: #### MG, SCAN CBC, CMP #### [facility] [address] [place] [address] USACapillary blood glucose measurement by glucometer (mass/volume)Ordered By: Talib Faustni on 11-68-3195Vetnbci [Mass/Vol]114 mg/dL NormalPromedica Flower HospitalComment on above:Random Glucose Reference Range is dependent on time and content of last meal. Glucose of more than 200 mg/dL in a nonstressed, ambulatory subject supports the diagnosis of Diabetes Mellitus.Result Comment: Random Glucose Reference Range is dependent on time and content of last meal. Glucose of more than 200 mg/dL in a nonstressed, ambulatory subject supports the diagnosis of Diabetes Mellitus. PERFORMED BY: [place] [address] PATHOLOGIST SUPERVISOR MOLDING AD ROSENBAUM M.D.Performed By: #### GLULS #### Point of Care testing ,Carbon dioxide, total [Moles/volume] in Serum or PlasmaOrdered By: Elif Carroll on 49-97-4205EF7 [Moles/Vol]26.6 mmol/IUgpueh54.0-31.0[facility] HospitalComment on above:Performed By: #### MG, SCAN CBC, CMP #### [facility] [address] [place] [address] USAChloride [Moles/volume] in Serum or PlasmaOrdered By: Elif Carroll on 73-17-6326Fuxqqkxq [Moles/Vol]104 mmol/ZCyzdpu17-702FgppbhypxPromedica Flower HospitalComment on above:Performed By: #### MG, SCAN CBC, CMP #### [facility] [address] [place] [address] USAComprehensive Metabolic Panelon 74-55-9343Lksrkwo [Mass/Vol]4.2 g/dLNormal3.5-5.7[facility] Physician GroupComment on above: Performed By: #### MG, SCAN CBC, CMP #### [facility] [address] [place] [address] USACreatinine Clr Calc Pyexmpwo69.92NormalThe [facility] Physician GroupComment on above:Performed By: #### MG, SCAN CBC, CMP #### [facility] [address] [place] [address] USAGFR/1.73 sq M.predicted MDRD (S/P/Bld) [Vol rate/Area] mL/min/{1.73_m2}NormalThe [facility] Physician GroupComment on above:Performed By: #### MG, SCAN CBC, CMP #### [facility] [address] [place] [address] USACreatinine [Mass/volume] in Serum or PlasmaOrdered By: Elif Carroll on 42-18-0624Suqkjwtvbq [Mass/Vol]0.80 mg/dLNormal0.70-1.30 [facility] HospitalComment on above:Performed By: #### MG, SCAN CBC, CMP #### [facility] [address] [place] [address] USAEosinophils [#/volume] in Blood by Automated countOrdered By: Elif Carroll on 56-48-7040Gyurulldtew (Bld) [#/Vol]0.2 10*3/uLNormal0.0-0.45 [facility] HospitalComment on above:Performed By: #### MG, SCAN CBC, CMP #### [facility] [address] [place] [address] USAEosinophils/100 leukocytes in Blood by Automated count Ordered By: Elif Carroll on 62-24-0758Bngyvhvjghx/100 WBC (Bld)2.9 %Normal. [facility] HospitalComment on above:Performed By: #### MG, SCAN CBC, CMP #### [place] [address] USAErythrocyte distribution width [Ratio] by Automated count Ordered By: Elif Carroll on 71-94-4310Pzethmbdlca distribution width (RBC) [Ratio]14.7 %Yoshxo40.0-14.8[facility] HospitalComment on above: Performed By: #### MG, SCAN CBC, CMP #### [facility] [address] [place] [address] USAErythrocyte morphology finding [Identifier] in Blood Ordered By: Elif Carroll on 55-23-8569BKY morphology finding Nom (Bld)Normal NormalNormalPromedica Flower HospitalComment on above:Performed By: #### MG, SCAN CBC, CMP #### [facility] [address] [place] [address] USAErythrocytes [#/volume] in Blood by Automated countOrdered By: Elif Carroll on 63-78-7275TKF (Bld) [#/Vol]4.11 10*6/uLNormal3.90-5.60 [facility] HospitalComment on above:Performed By: #### MG, SCAN CBC, CMP #### [facility] [address] [place] [id number] USAGlucose [Mass/volume] in Serum or PlasmaOrdered By: Elif Carroll on 70-41-4534Srznvll [Mass/Vol]108 mg/uMOulm74-940LbkqsvijyPromedica Flower HospitalComment on above:ADA recommended reference rangeRandom Glucose Reference Range is dependent on time and content of last meal. Glucose of more than 200 mg/dL in a nonstressed, ambulatory subject supports the diagnosisof Diabetes Mellitus.Result Comment: Random Glucose Reference Range is dependent on time and content of last meal. Glucose of more than 200 mg/dL in a nonstressed, ambulatory subject supports the diagnosis of Diabetes Mellitus. ADA recommended reference rangePerformed By: #### MG, SCAN CBC, CMP #### [facility] [address] [place], [place] [address] USAHematocrit [Volume Fraction] of Blood by Automated count Ordered By: Elif Carroll on 57-48-4692Gsknelhpxs (Bld) [Volume fraction]38.5 % Low38.8-50.0[facility] HospitalComment on above:Performed By: #### MG, SCAN CBC, CMP #### [facility] [address] [place], [place] [address] USAHemoglobin [Mass/volume] in BloodOrdered By: Elif Carroll on 92-27-4115Uesiudeouo (Bld) [Mass/Vol]12.8 g/dLLow13.0-17.0[facility] HospitalComment on above:Performed By: #### MG, SCAN CBC, CMP #### [facility] [address] [place], [place] [address] USALeukocytes [#/volume] corrected for nucleated erythrocytes in Blood by Automated counOrdered By: Elif Carroll on 50-29-4749OYS corrected for nucl RBC Auto (Bld) [#/Vol]8.5 10*3/uL4.1-10.5FFayette County Memorial HospitalLeukocytes [#/volume] in Blood by Automated countOrdered By: Elif Carroll on 60-99-7125VIL (Bld) [#/Vol]8.5 10*3/uLNormal4.1-10.5FFayette County Memorial HospitalComment on above:Performed By: #### MG, SCAN CBC, CMP #### [facility] [address] [place] [address] USALymphocytes [#/volume] in Blood by Automated countOrdered By: Elif Carroll on 64-02-0561Oxhgttwggmc (Bld) [#/Vol]1.9 10*3/uLNormal1.00-4.8 [facility] HospitalComment on above:Performed By: #### MG, SCAN CBC, CMP #### [facility] [address] [place] [address] USALymphocytes/100 leukocytes in Blood by Automated count Ordered By: Elif Carroll on 70-73-6926Lpgdyyrqnsb/100 WBC (Bld)22.1 %Normal. [facility] HospitalComment on above:Performed By: #### MG, SCAN CBC, CMP #### [facility] [address]H [Entitic mass] by Automated countOrdered By: Elif Carroll on 31-20-3027BPO (RBC) [Entitic mass]31.1 lhFqxhnc14.5-35.2FFayette County Memorial HospitalComment on above:Performed By: #### MG, SCAN CBC, CMP #### [facility] [address] Auto (RBC) [Mass/Vol]Ordered By: Elif Carroll on 62-64-2488WEUE (RBC) [Mass/Vol]33.2 g/dL32.5-35.6FFayette County Memorial HospitalMCV [Entitic volume] by Automated countOrdered By: Elif Carroll on 12-64-9711TWH (RBC) [Entitic vol]93.7 vQQbzkvf01.5-101Prom[facility] HospitalComment on above:Performed By: #### MG, SCAN CBC, CMP #### [facility] [address] [place] [id number] USAMagnesium [Mass/volume] in Serum or PlasmaOrdered By: Elif Carroll on 75-90-4617Povdefjys [Mass/Vol]2.1 mg/dLNormal1.9-2.7FFayette County Memorial HospitalComment on above:Result Comment: PERFORMED BY: [place] [address] PATHOLOGIST SUPERVISOR MOLDING AD ROSENBAUM M.D.Performed By: #### MG, SCAN CBC, CMP #### [facility] [address] [place] [address] USAMonocytes [#/volume] in Blood by Automated countOrdered By: Elif Carroll on 24-48-0791Ynqespyej (Bld) [#/Vol]0.8 10*3/uLNormal0.0-0.8 [facility] HospitalComment on above:Performed By: #### MG, SCAN CBC, CMP #### [place] [address] USAMonocytes/100 leukocytes in Blood by Automated count Ordered By: Elif Carroll on 10-42-6949Zdlyuhdvy/100 WBC (Bld)9.2 %Normal. [facility] HospitalComment on above:Performed By: #### MG, SCAN CBC, CMP #### [facility] [address] [place] [address] USANeutrophils [#/volume] in Blood by Automated countOrdered By: Elif Carroll on 36-42-3917Brswuiooosa (Bld) [#/Vol]5.6 10*3/uLNormal1.8-7.7 [facility] HospitalComment on above:Performed By: #### MG, SCAN CBC, CMP #### [place] [address] USANeutrophils/100 leukocytes in Blood by Automated count Ordered By: Elif Carroll on 46-65-6068Wzftmegkaiw/100 WBC (Bld)65.3 %Normal. [facility] HospitalComment on above:Performed By: #### MG, SCAN CBC, CMP #### [place] [address] USANo Panel InformationOrdered By: Elif Carroll on 11-13-2024 Estimated GFR (CKD-EPI)> 60.0 mL/MinPromedica Flower HospitalPharmacy Creatinine Clearance (Chem60.92Promedica Flower HospitalNucleated erythrocytes [Presence] in Blood by Automated countOrdered By: Elif Carroll on 77-38-1697Gcevmmoxg RBC Auto Ql (Bld)0.2 /100{WBC}0-0.5FFayette County Memorial HospitalPET tumor subq tx strat sb-mton 03-74-5945YNG tumor subq tx strat sb-mtUC [facility] [address] [place] [address] Nuclear Medicine Report Signed Patient: Jeremie Bennett MR#: [id number] : 1940 Acct:[id number] Age/Sex: 84 / M ADM Date: 11/23/24 Loc: Room: Type: [facility] Attending Dr: Talib Faustin MD Copies [...] Jr., D.OAidan 11/13/2024 3:50 PM Dictation Location: RADIO-PC-22 Transcribed By: [facility] 11/13/24 1550 Dictated By: Mario Urias Jr, 11/13/24 1539 Signed By: 11/13/24 1550[facility] Physician GroupPlatelet adequacy [Presence] in Blood by Light microscopyOrdered By: Elif Carroll on 43-27-7967Bxhujofmi LM Ql (Bld)NormalNoSelect Medical OhioHealth Rehabilitation HospitalPlatelet mean volume [Entitic volume] in Blood by Automated countOrdered By: Elif Carroll on 11-13-2024 Platelet mean volume (Bld) [Entitic vol]8.4 fLNormal6.6-10.1FFayette County Memorial HospitalComment on above:Performed By: #### MG, SCAN CBC, CMP #### [facility] [address] [place] [address] USAPlatelet morphology finding [Identifier] in BloodOrdered By: Elif Carroll on 01-20-2975Wiyhpzih morphology finding Nom (Bld)NormalWexner Medical CenterPlatelets [#/volume] in Blood by Automated countOrdered By: Elif Carroll on 27-91-4870Svkmpmxrz (Bld) [#/Vol]223 10*3/uL Osiagb833-520SxmcvgepwPromedica Flower HospitalComment on above:Performed By: #### MG, SCAN CBC, CMP #### [facility] [address] [place] [address] USAPotassium [Moles/volume] in Serum or PlasmaOrdered By: Elif Carroll on 25-30-0137Fkgdrewhf [Moles/Vol]4.2 mmol/LNormal3.5-5.1FFayette County Memorial HospitalComment on above:Performed By: #### MG, SCAN CBC, CMP #### [facility] [address] [place] [id number] USAProtein [Mass/volume] in Serum or PlasmaOrdered By: Elif Carroll on 48-46-8512Drbkjzr [Mass/Vol]7.3 g/dLNormal6.4-8.9[facility] HospitalComment on above:Performed By: #### MG, SCAN CBC, CMP #### [place] [address] USAScan and CBCon 09-02-4855Vpvn Corpuscular HGB Conc33.2 g/mCZerbfd53.5-35.6The [facility] Physician GroupComment on above:Performed By: #### MG, SCAN CBC, CMP #### [place] [address] USANRBC%0.2 /100{WBC}Normal0-0.5[facility] Comment on above:Performed By: #### MG, SCAN CBC, CMP #### [place] [address] USAPlatelet EstimateNormalNormalNormHendry Regional Medical Center Physician [facility] Health CenterComment on above:Performed By: #### MG, SCAN CBC, CMP #### [place] [address] USAPlatelet MorphologyNormalNormalNormHendry Regional Medical Center Physician [facility] Health CenterComment on above:Result Comment: PERFORMED BY: [place] [address] PATHOLOGIST SUPERVISOR MOLDING AD ROSENBAUM M.D.Performed By: #### MG, SCAN CBC, CMP #### [place] [address] USAWhite Blood Count8.5 [CFU]/mLNormal4.1-10.5[facility] Physician GroupComment on above:Performed By: #### MG, SCAN CBC, CMP #### [place] [address] USASerum globulin measurement by calculation (mass/volume) Ordered By: Elif Carroll on 63-77-0710Wiwoqqod (S) [Mass/Vol]3.1 g/dLNormal [facility] HospitalComment on above:Performed By: #### MG, SCAN CBC, CMP #### [place] [address] USASerum or plasma albumin/globulin mass ratioOrdered By: Elif Carroll on 42-90-8606Yjvbmoy/Globulin [Mass ratio]1.4 {ratio}Normal [facility] HospitalComment on above:Performed By: #### MG, SCAN CBC, CMP #### [facility] [address] [place] [address] USASerum or plasma anion gap determinationOrdered By: Elif Carroll on 37-86-6232Qkxjx gap [Moles/Vol]10.6 mmol/LNormal6.0-15.0[facility] HospitalComment on above:Performed By: #### MG, SCAN CBC, CMP #### [facility] [address] [place] [address] USASodium [Moles/volume] in Serum or PlasmaOrdered By: Elif Carroll on 68-72-5416Skojyv [Moles/Vol]137 mmol/CTuibws932-508GjjvnsdqkPromedica Flower HospitalComment on above:Performed By: #### MG, SCAN CBC, CMP #### [facility] [address] [place] [address] USAUrea nitrogen [Mass/volume] in Serum or PlasmaOrdered By: Elif Carroll on 32-45-1190Mfsw nitrogen [Mass/Vol]29 mg/dLHigh7-25Prom[facility]lower HospitalComment on above:Performed By: #### MG, SCAN CBC, CMP #### [facility] [address] [place] [address] USAAmbulatory Visit Summaryon 25-37-8916Xzfpcpjgba Visit SummaryAmbulatory Visit Summary JEREMIE BENNETT Annabelle :1940 Visit Date:2024 Ambulatory Visit Instructions Your [...] Film) fluticasone nasal (fluticasone Nasal 0.05 mg/inh [place]) furosemide (furosemide 20 mg Tab) irbesartan (irbesartan [...] Esophagogastroduodenoscopy (05/20/2020), Angioplasty, Cardiac pacemaker procedure, Cataract, Cholecystectomy,Colonoscopy, Hernia repair, Prostate excision, Tonsillectomy, Vasectomy. Discharge Vitals Temperature (Oral) 36.4 ???C Heart Rate (Peripheral) 74 Respiratory Rate 18 Blood Pressure 128/84 Height 160.0 cm Height 63 in Weight 70.1 kg Weight 154.544 lb BMI 27.38 What to do next Scheduled Follow-Up Appointments Wednesday 2:30 PM EDT With: Where: [address] [id number]- Wednesday 1:20 PM EDT With: Allison CASON, Demetrius Rosa Where: [address] [id number]- Medications What How Much When Instructions Unchanged nystatin (nystatin 100,000 units/ mL Oral Susp) 4 Milliliter By Mouth 4 times a day Pickup at [facility] #[id number] Unchanged albuterol (Albuterol (Eqv-ProAir HFA) 90 mcg/ [...] Tablets By Mouth Every day Contact prescribing physicianif questions or concerns Unchanged dorzolamide ophthalmic (dorzolamide ophthalmic 2% solution) 1 Drops Ophthalmic 2 times a day each eye Contact prescribing physician if questions or concerns Unchanged famotidine (Pepcid 20 mg Tab) 1 Tablets By Mouth Every day Contact prescribing physician if questions or concerns Unchanged fentanyl (fentaNYL 12 mcg/ hr Transderm ER Film) 1 Patches Topical Every 72 hours Contactprescribing physician if questions or concerns Unchanged fluticasone nasal (fluticasone Nasal 0.05 mg/ inh [place]) See instructions USE 1 SPRAY IN BOTH [...] instructions TAKE 1 CAPSULE BY (more content notincluded)...[facility] Medicine Office/Clinic Noteon 52-86-1954Sdmpqf Medicine Office/Clinic NoteP[facility] Chief Complaint - The patient [...] presenting with medication refill and evaluation of swallowingdifficulties. - Dysphagia: The patient reports mild difficulty [...] level of consciousness appropriate for age, CN II- XII intact, motor strength equal & normal bilaterally, speech normal Abdomen: Soft, Non-tender, Non-distended, + Bowel sounds Assessment/Plan 1. Dysphagia, unspecified (R13.10) - Monitor swallowing difficulties and ensure adequate nutritional intake. 2. Candidal esophagitis (B37.81) - Refill nystatin prescription to manage oral thrush. Orders: nystatin, 400,000 unit(s) = 4 mL, Oral, QID, # 112 mL, Refills(s) 1, Pharmacy: [id number], 160, cm, 10/30/24 17:38:00 EDT, Height/Length Dosing, [...] to opioid therapy 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 Medications [...] patch(es), Topical, q72hr fluticasone Nasal 0.05 mg/inh [place], See Instructions furosemide 20 mg Tab, 20 mg= 1 tab(s), Oral, Daily irbesartan 300 mg Tab, 300 mg= 1 tab(s), Oral, Daily isosorbide mononitrate, 30 mg, Oral, qAM latanoprost Opth 0.005% Janee metformin 500 mg ER T (more content not included)...[facility] HospitalComment on above:Result Comment: Electronically Signed By: Demetrius Cooper MD\.br\Date and Time Signed: 10/30/24 18:01 EDTAmbulatory Visit Summaryon 50-08-1529Zjaocenubg Visit SummaryAmbulatory Visit Summary JEREMIE BENNETT :1940 Visit Date:10/12/2024 [...] Film) fluticasone nasal (fluticasone Nasal 0.05 mg/inh [place]) furosemide (furosemide 20 mg Tab) irbesartan (irbesartan [...] Esophagogastroduodenoscopy (05/20/2020), Angioplasty, Cardiac pacemaker procedure, Cataract, Cholecystectomy,Colonoscopy, Hernia repair, Prostate excision, Tonsillectomy, Vasectomy. Discharge Vitals Temperature (Oral) 36.3 ???C Heart Rate (Peripheral) 72 Respiratory Rate 20 Blood Pressure 104/88 Height 160.0 cm Height 63 in Weight 69.5 kg Weight 153.221 lb BMI 27.15 What to do next Scheduled Follow-Up Appointments Wednesday 2:30 PM EDT With: Where: [address] [phone]- Wednesday 3:20 PM EDT With: Allison CASON, Demetrius Rosa Where: [address] [phone]- Medications What How Much When Instructions Unchanged [...] fluticasone nasal (fluticasone Nasal 0.05 mg/ inh [place]) See instructions USE 1 SPRAY IN BOTH [...] to opioid therapy 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 associated with type 2 diabetes mellitus Diverticulosis FH: stomach can (more content not included)...[facility] Ambulatory Visit SummaryAmbulatory Visit Summary JEREMIE BENNETT :1940 Visit Date:10/12/2024 [...] Film) fluticasone nasal (fluticasone Nasal 0.05 mg/inh [place]) furosemide (furosemide 20 mg Tab) irbesartan (irbesartan [...] Esophagogastroduodenoscopy (05/20/2020), Angioplasty, Cardiac pacemaker procedure, Cataract, Cholecystectomy,Colonoscopy, Hernia repair, Prostate excision, Tonsillectomy, Vasectomy. Discharge Vitals Temperature (Oral) 36.3 ???C Heart Rate (Peripheral) 72 Respiratory Rate 20 Blood Pressure 104/88 Height 160.0 cm Height 63 in Weight 69.5 kg Weight 153.221 lb BMI 27.15 What to do next Scheduled Follow-Up Appointments Wednesday 2:30 PM EDT With: Where: [place] [id number]- Wednesday 3:20 PM EDT With: Allison CASON, Demetrius Rosa Where: [facility] [address] [place] [address]- Medications What How Much When Instructions Unchanged [...] fluticasone nasal (fluticasone Nasal 0.05 mg/ inh [place]) See instructions USE 1 SPRAY IN BOTH [...] to opioid therapy 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 associated with type 2 diabetes mellitus Diverticulosis FH: stomach cancer Former smoker GERD with apnea Gla (more content not included)...[facility] Medicine Office/Clinic Noteon 85-33-6194Qurdcg Medicine Office/Clinic NoteFami Medicine Office/Clinic Note Chief Complaint Concerns about [...] level of consciousness appropriate for age, CN II- XII intact, motor strength equal & normal bilaterally, [...] overweight and former smoking presenting with nutritional statusand swallowing difficulties. - Swallowing difficulties and inadequate [...] the patient about the gradual improvements in hiscondition and emphasized the need for continued observation [...] to opioid therapy 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 [...] Irregular bowel habits Procedure/Surgical (more content not included)...[facility] HospitalComment on above:Result Comment: Electronically Signed By: Allison CASON, Demetrius Branham.br\Date and Time Signed: 10/12/24 15:08 EDTCapillary blood glucose measurement by glucometer (mass/volume)Ordered By: Veena Ross on 87-22-0386Kytfzsz [Mass/Vol]103 mg/dLWVUMedicine Harrison Community Hospital Comment on above:Random Glucose Reference Range is dependent on time and content of last meal. Glucose of more than 200 mg/dL in a nonstressed, ambulatory subject supports the diagnosis of Diabetes Mellitus.Result Comment: Random Glucose Reference Range is dependent on time and content of last meal. Glucose of more than 200 mg/dL in a nonstressed, ambulatory subject supports the diagnosis of Diabetes Mellitus.Performed By: #### GLULS #### Point of Care testing ,GLUCOSE POCT GLUCOMETERSon 49-93-7678KCXAUBV7Jav3: Cleaned MeterVALLEY VIEW MEDICAL [facility] [employer] Glucose [Mass/Vol]103 mg/dLPemiscot Memorial Health SystemsComment on above:Random Glucose Reference Range is dependent on time and content of last meal. Glucose of more than 200 mg/dL in a nonstressed, ambulatory subject supports the diagnosis of Diabetes Mellitus. [facility] Health SystemsGlucose Poct Glucometerson 03-26-8565Vabrdsp2Dxi8: Cleaned Meter [facility] Physician GroupComment on above:Result Comment: PERFORMED BY: [facility] [address] [place] [address] PATHOLOGIST SUPERVISOR MOLDING HEBER SHANNON M.D.Performed By: #### GLULS #### Point of Care testing ,No Panel InformationOrdered By: Veena Ross on 81-06-9098Ifxjpio Glucose CommentGlu2: cleaned [facility] Medicine Office/Clinic Noteon 08-91-3268Zmhgik Medicine Office/Clinic NoteHigh Point Hospital Medicine Office/Clinic Note Chief Complaint ER follow up Abdominal pain and difficulty swallowing HPI Staff 2 week follow up to RUQ pain. Liver US ordered @ [facility]. Instructed to get done if pain worsens. Has since then gone [place] [facility] CC: abdominal pain & constipation States [...] level of consciousness appropriate for age, CN II- XII intact, motor strength equal & normal bilaterally, speech normal Abdomen: Soft, Non-tender, Non-distended, + Bowel sounds, moderate to large amount of stool presentin colon and rectum consistent with constipation Assessment/Plan [...] day(s), # 140 mL, Refills(s) 0, Pharmacy: [facility] #[id number], 160, cm, 09/28/24 14:41:00 EDT, Height/Length Dosing, [...] with imaging comparisons. We talked about the dysphagia,which may be exacerbated by recurrent oral thrush. I prescribed Nystatin in a awvfv-kol-azkgpyn method to effectively address the thrush symptoms [...] to opioid therapy 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 associated with type 2 diabetes mellitus Diverticulo (more content not included)...[facility] Comment on above:Result Comment: Electronically Signed By: Allison CASON, Demetrius Rosa\.br\Date and Time Signed: 09/28/24 15:12 EDTAlanine aminotransferase [Enzymatic activity/volume] in Serum or PlasmaOrdered By: Maru Hayes on 50-65-0321KBP [Catalytic activity/Vol]Alanine aminotransferase [Enzymatic activity/volume] in Serum or PlasmaPromedica Flower HospitalALT [Catalytic activity/Vol]9 U/L[address] [place], [place] [address]Comment on above:Performed By: #### MG, SCAN CBC, CMP #### [place] [address] USAAlbumin [Mass/volume] in Serum or Plasma by Bromocresol green (BCG) dye binding methoOrdered By: Maru Hayes on 12-64-0798Qntqyxq BCG dye [Mass/Vol]Albumin [Mass/volume] in Serum or Plasma by Bromocresol green (BCG) dye binding metho3.5-5.7FFayette County Memorial HospitalAlbumin BCG dye [Mass/Vol]3.5 g/dL3.5-5.7FFayette County Memorial HospitalAlkaline phosphatase [Enzymatic activity/volume] in Serum or PlasmaOrdered By: Maru Hayes on 06-52-0229BRU [Catalytic activity/Vol]Alkaline phosphatase [Enzymatic activity/volume] in Serum or Ooqaip43-966WicwovaxsPromedica Flower HospitalALP [Catalytic activity/Vol]81 U/FSwvunu19-416FfmjdskqqPromedica Flower Hospital Comment on above:Performed By: #### MG, SCAN CBC, CMP #### [facility] [address] [place] [address] USAAppearance of UrineOrdered By: Maru Hayes on 37-13-2691Knpmzqobsn (U)Urine appearanceCleCleveland Clinic Marymount Hospital Appearance (U)ClearNormalClearPromedica Flower HospitalComment on above: Order Comment: Name Collection Type:: Clean-Voided MidstreamPerformed By: #### UA #### [facility] [address] [place] [address] USAAspartate aminotransferase [Enzymatic activity/volume] in Serum or PlasmaOrdered By: Maru Hayes on 30-54-6702SMY [Catalytic activity/Vol]Aspartate aminotransferase [Enzymatic activity/volume] in Serum or Ijckpj59-17QaxbrjepzPromedica Flower HospitalAST [Catalytic activity/Vol]14 U/L Cbdkyz52-83Ahyuoqgsp56 Gomez StreetComment on above:Performed By: #### MG, SCAN CBC, CMP #### [facility] [address] [place] [address] USABasic Metabolic Panelon 68-61-1422Xnumqpmrie Clr Calc Vuacyemq59.79[facility] Physician GroupComment on above:Performed By: #### MG, SCAN CBC, CMP #### [facility] [address] [place] [address] USAGFR/1.73 sq M.predicted MDRD (S/P/Bld) [Vol rate/Area] mL/min/{1.73_m2}[facility] Physician GroupComment on above:Performed By: #### MG, SCAN CBC, CMP #### [facility] [address] [place] [address] USABasophils Auto (Bld) [#/Vol]Ordered By: Maru Hayes on 45-00-4516Ybybgufmq (Bld) [#/Vol]Automated basophil count0.0-0.2FFayette County Memorial HospitalBasophils [#/volume] in Blood by Automated countOrdered By: Maru Hayes on 51-20-1061Cqykbnuit (Bld) [#/Vol]0.1 10*3/uLNormal0.0-0.2 Promedica Flower HospitalComment on above:Result Comment: PERFORMED BY: [place] [address] PATHOLOGIST SUPERVISOR MOLDING HEBER SHANNON M.D.Performed By: #### MG, SCAN CBC, CMP #### [facility] [address] [place] [address] USABasophils/100 WBC Auto (Bld)Ordered By: Maru Hayes on 69-82-9191Kucjxipby/100 WBC (Bld)Automated basophil %.Promedica Flower HospitalBasophils/100 leukocytes in Blood by Automated countOrdered By: Maru Hayes on 11-56-1414Pqivnwaml/100 WBC (Bld)1.2 %Normal.Promedica Flower HospitalComment on above:Performed By: #### MG, SCAN CBC, CMP #### [facility] [address] [place] [address] USABilirubin Test strip Ql (U)Ordered By: Maru Hayes on 45-56-5520Xnbyedbgm Ql (U)Bilirubin.total [Presence] in Urine by Test strip NegativePromedica Flower HospitalBilirubin Ql (U)NegativeNegative Prom[facility]ica Flower HospitalBilirubin.direct [Mass/volume] in Serum or PlasmaOrdered By: Maru Hayes on 06-34-2687Oigwnswmb.direct [Mass/Vol] Bilirubin.direct [Mass/volume] in Serum or Plasma0.03-0.18FFayette County Memorial HospitalBilirubin.direct [Mass/Vol]0.10 mg/dL0.03-0.18FFayette County Memorial HospitalBilirubin.total [Mass/volume] in Serum or PlasmaOrdered By: Maru Hayes on 91-79-6097Lilmyites [Mass/Vol]Bilirubin.total [Mass/volume] in Serum or Plasma0.3-1.0Promedica Flower HospitalBilirubin [Mass/Vol]0.5 mg/dL Normal0.3-1.0Promedica Flower HospitalComment on above:Performed By: #### MG, SCAN CBC, CMP #### [facility] [address] [place] [address] USACT abdomen pelvis w conon 25-64-4237YL abdomen pelvis w [facility] [place] [address] [place] [address] CT Scan Report Signed Patient: Jeremie Bennett MR#: [id number] 669 : 1940 Acct:[id number] Age/Sex: 83 / M ADM Date: 09/20/24 Loc: ER Room: Type: [facility] ER Attending Dr: Copies to: Maru [...] Gordon M.D. 09/20/2024 8:03 PM Dictation Location: RADIO-PC-17 Transcribed By: PERLA 09/20/242002 Dictated By: Rafi Gordon II, MD 09/20/241947 Signed By: 09/20/[address] [place] [address] Physician GroupCalcium [Mass/volume] in Serum or PlasmaOrdered By: Maru Hayes on 77-65-8514Uxadiwj [Mass/Vol]Calcium [Mass/volume] in Serum or Plasma8.6-10.3FFayette County Memorial HospitalCalcium [Mass/Vol]9.5 mg/dLNormal8.6-10.3FFayette County Memorial HospitalComment on above:Performed By: #### MG, SCAN CBC, CMP #### [facility] [address] [place] [id number] USACarbon dioxide, total [Moles/volume] in Serum or Plasma Ordered By: Maru Hayes on 26-30-5528VU9 [Moles/Vol]Carbon dioxide, total [Moles/volume] in Serum or Ikyajc85.0-31.0Promedica Flower HospitalCO2 [Moles/Vol]26.8 mmol/KSejdeg67.0-31.0Prom[facility] Flower HospitalComment on above:Performed By: #### MG, SCAN CBC, CMP #### [facility] [address] [place] [id number] USAChloride [Moles/volume] in Serum or PlasmaOrdered By: Maru Hayes on 90-61-0629Wsaamjht [Moles/Vol]Chloride [Moles/volume] in Serum or Udwkig64-294MxmdtyvuhPromedica Flower HospitalChloride [Moles/Vol]104 mmol/L Hmfcxa33-184WbtyzucdnPromedica Flower HospitalComment on above:Performed By: #### MG, SCAN CBC, CMP #### [facility] [address] [place] [address] USAColor Auto (U)Ordered By: Maru Hayes on 09-20-2024 Color (U)Color of Urine by AutoYellowPromedica Flower HospitalColor of Urine by AutoOrdered By: Maru Hayes on 75-83-5159Tqhzw (U)Light-yellowNormal YellowPromedica Flower HospitalComment on above:Order Comment: Name Collection Type:: Clean-Voided MidstreamPerformed By: #### UA #### [facility] [address] [place] [address] USAComplete Blood Count Auto Diffon 53-35-4917Qhil Corpuscular HGB Conc33.3 g/xWAqkuzv40.5-35.6[facility] Physician GroupComment on above:Performed By: #### MG, SCAN CBC, CMP #### [place] [address] USAMonocytes/100 WBC (Bld)22.62 %High0.00-20.00[facility] Physician GroupComment on above:Result Comment: For adults in ED, MDW > 20.0 may be associated with a higher risk of sepsis during the first 12 hrs of hospital admissionPerformed By: #### MG, SCAN CBC, CMP #### [facility] [address] [place] [address] USANRBC%0.0 /100{WBC}Normal0-0.5[facility] Comment on above:Performed By: #### MG, SCAN CBC, CMP #### [facility] [address] [place] [address] USACreatinine [Mass/volume] in Serum or PlasmaOrdered By: Maru Hayes on 00-63-0430Dusvaoqojm [Mass/Vol]Creatinine [Mass/volume] in Serum or Plasma0.70-1.30Promedica Flower HospitalCreatinine [Mass/Vol] 0.70 mg/dLNormal0.70-1.30Prom[facility] Flower HospitalComment on above: Performed By: #### MG, SCAN CBC, CMP #### [address] [place] [address] USAECG 12 lead ECGon 82-53-6930CIN 12 [facility] [place] [address] [place] [address] Electrocardiograph Report Signed Patient: Jeremie Bennett MR#: [id number] 669 : 1940 Acct:[id number] Age/Sex: 83 / M ADM Date: 09/20/24 Loc: ER Room: Type: [facility] ER Attending Dr: Ordering Provider: Maru Hayes [...] Abnormal ECG Confirmed by Maru Hayes MD ([id number]) on 09/20/2024 11:00:16 PM Referred By: Electronically Signed By: Maru Hayes MD Transcribed By: MUS Signed By Maru Hayes MD 12/[address] [place] [address] Physician GroupEosinophils Auto (Bld) [#/Vol] Ordered By: Maru Hayes on 99-26-0582Tvijyqtxawq (Bld) [#/Vol]Automated eosinophil count0.0-0.45Promedica Flower HospitalEosinophils [#/volume] in Blood by Automated countOrdered By: Maru Hayes on 43-23-4784Xjodgldgumt (Bld) [#/Vol]0.3 10*3/uLNormal0.0-0.45Prom[facility] Flower HospitalComment on above:Performed By: #### MG, SCAN CBC, CMP #### [facility] [address] [place] [address] USAEosinophils/100 WBC Auto (Bld)Ordered By: Maru Hayes on 12-85-0612Sljunhivxty/100 WBC (Bld)Automated eosinophil %.Prom[facility]ica Flower HospitalEosinophils/100 leukocytes in Blood by Automated countOrdered By: Maru Hayes on 14-52-9447Jedxhzohton/100 WBC (Bld)2.5 %Normal.Prom[facility] Flower HospitalComment on above:Performed By: #### MG, SCAN CBC, CMP #### [facility] [address] [place] [address] USAErythrocyte distribution width Auto (RBC) [Ratio]Ordered By: Maru Hayes on 94-63-0647Qgsazjikejo distribution width (RBC) [Ratio] Erythrocyte distribution width [Ratio] by Automated sodlpCfew02.0-14.8Promedica Flower HospitalErythrocyte distribution width [Ratio] by Automated count Ordered By: Maru Hayes on 25-57-4725Wuxybpabigr distribution width (RBC) [Ratio]15.9 %High12.-14.[address] [place], [place] [address]Comment on above: Performed By: #### MG, SCAN CBC, CMP #### [facility] [address] [place] [address] USAErythrocytes [#/volume] in Blood by Automated countOrdered By: Maru Hayes on 74-99-0160MMV (Bld) [#/Vol]3.85 10*6/uLLow3.90-5.60 Prom[facility] Flower HospitalComment on above:Performed By: #### MG, SCAN CBC, CMP #### [place] [address] USAGlobulin Calc (S) [Mass/Vol]Ordered By: Maru Hayes on 34-78-6652Dcrhkdch (S) [Mass/Vol]Serum globulin measurement by calculation (mass/volume)Prom[facility] Flower HospitalGlucose [Mass/volume] in Serum or PlasmaOrdered By: Maru Hayes on 19-34-4232Wnzbeny [Mass/Vol]Glucose [Mass/volume] in Serum or PzyewxRvyu77-452DjhpaqkowPromedica Flower Hospital Comment on above:ADA recommended reference rangeRandom Glucose Reference Range is dependent on time and content of last meal. Glucose of more than 200 mg/dL in a nonstressed, ambulatory subject supports the diagnosisof Diabetes Mellitus. Glucose [Mass/Vol]105 mg/qQNskc97-154SpklepwtuPromedica Flower HospitalComment on above:ADA recommended reference rangeRandom Glucose Reference Range is dependent on time and content of last meal. Glucose of more than 200 mg/dL in a nonstressed, ambulatory subject supports the diagnosisof Diabetes Mellitus. Result Comment: Random Glucose Reference Range is dependent on time and content of last meal. Glucose of more than 200 mg/dL in a nonstressed, ambulatory subject supports the diagnosis of Diabetes Mellitus. ADA recommended reference rangePerformed By: #### MG, SCAN CBC, CMP #### [facility] [address] [place] [id number] USAGlucose [Mass/volume] in Urine by Test stripOrdered By: Maru Hayes on 86-55-5512Qjxlqve Test strip (U) [Mass/Vol]Glucose [Mass/volume] in Urine by Test stripNoSelect Medical [facility]Health Rehabilitation Hospital Glucose Test strip (U) [Mass/Vol]Normal mg/dLNoSelect Medical OhioHealth Rehabilitation HospitalHematocrit Auto (Bld) [Volume fraction]Ordered By: Maru Hayes on 20-91-4598Mgugtnqxdo (Bld) [Volume fraction]Hematocrit [Volume Fraction] of Blood by Automated ilbfkQzb84.8-50.0Prom[facility] Flower HospitalHematocrit [Volume Fraction] of Blood by Automated countOrdered By: Maru Hayes on 73-91-6450Bfpotxgytt (Bld) [Volume fraction]35.3 %Low38.8-50.0Prom[facility] Flower HospitalComment on above:Performed By: #### MG, SCAN CBC, CMP #### [facility] [address] [place] [address] USAHemoglobin Test strip Ql (U)Ordered By: Maru Hayes on 50-02-0369Foejcelwsp Ql (U)Hemoglobin [Presence] in Urine by Test stripNegative [facility] Flower HospitalHemoglobin Ql (U)NegativeNegativePromedica Flower HospitalHemoglobin [Mass/volume] in BloodOrdered By: Maru Hayes on 67-82-5068Lmhyqiqpuo (Bld) [Mass/Vol]Hemoglobin [Mass/volume] in YnznbHwl70.0-17.0Prom[facility] Flower HospitalHemoglobin (Bld) [Mass/Vol] 11.8 g/dLLow13.0-17.0Prom[facility] Flower HospitalComment on above:Performed By: #### MG, SCAN CBC, CMP #### [facility] [address] [place] [address] USAHepatic Panelon 59-43-3392Cuciibi [Mass/Vol]3.5 g/dLNormal 3.5-5.7[facility] Physician GroupComment on above:Performed By: #### MG, SCAN CBC, CMP #### [facility] [address] [place] [address] USABilirubin,Indirect0.4 mg/dLNormalThe [facility] Physician [facility] Health CenterComment on above:Performed By: #### MG, SCAN CBC, CMP #### [facility] [address] [place] [address] USABilirubin.indirect [Mass/Vol]0.10 mg/dLNormal0.03-0.18[facility] Physician GroupComment on above:Performed By: #### MG, SCAN CBC, CMP #### [facility] [address] [place] [address] USAKetones Test strip Ql (U)Ordered By: Maru Hayes on 25-62-3371Atlathf Ql (U)Ketones [Presence] in Urine by Test stripNegative [facility] Flower HospitalKetones [Presence] in Urine by Test strip Ordered By: Maru Hayes on 42-89-4612Frapcqk Ql (U)NegativeNormalNegWVUMedicine Harrison Community HospitalComment on above:Order Comment: Name Collection Type:: Clean-Voided MidstreamPerformed By: #### UA #### [place] [address] USALeukocyte esterase [Presence] in Urine by Test strip Ordered By: Maru Hayes on 20-27-4509Qwonnqlaj esterase Test strip Ql (U) Leukocyte esterase [Presence] in Urine by Test stripNegativePromedica Flower HospitalLeukocyte esterase Test strip Ql (U)NegativeNormalNegative [facility] Flower HospitalComment on above:Order Comment: Name Collection Type:: Clean-Voided MidstreamPerformed By: #### UA #### [facility] [address] [place] [address] USALeukocytes [#/volume] corrected for nucleated erythrocytes in Blood by Automated counOrdered By: Maru Hayes on 22-05-2484RGT corrected for nucl RBC Auto (Bld) [#/Vol]Leukocytes [#/volume] corrected for nucleated erythrocytes in Blood by Automated counHigh4.1-10.5FFayette County Memorial HospitalWBC corrected for nucl RBC Auto (Bld) [#/Vol]11.2 10*3/uLHigh4.1-10.5 [facility] HospitalLeukocytes [#/volume] in Blood by Automated countOrdered By: Maru Hayes on 51-19-4574UBL (Bld) [#/Vol]11.2 10*3/uLHigh 4.1-10.5FFayette County Memorial HospitalComment on above:Performed By: #### MG, SCAN CBC, CMP #### [place] [id number] USALipase [Enzymatic activity/volume] in Serum or Plasma Ordered By: Maru Hayes on 61-41-7227Ffklbs [Catalytic activity/Vol]Lipase [Enzymatic activity/volume] in Serum or Qdmjkl52.0-82.0Prom[facility] Flower HospitalLipase [Catalytic activity/Vol]34.0 U/FHoygwy82.0-82.0Prom[facility] Flower HospitalComment on above:Result Comment: PERFORMED BY: [place] [address] PATHOLOGIST SUPERVISOR MOLDING HEBER SHANNON M.D.Performed By: #### MG, SCAN CBC, CMP #### [facility] [address] [place] [id number] USALymphocytes Auto (Bld) [#/Vol]Ordered By: Maru Hayes on 36-79-8350Enkolaqtrtg (Bld) [#/Vol]Lymphocytes [#/volume] in Blood by Automated count1.00-4.8Promedica Flower HospitalLymphocytes [#/volume] in Blood by Automated countOrdered By: Maru Hayes on 13-33-0634Uwkjmljvhln (Bld) [#/Vol]2.8 10*3/uLNormal1.00-4.8Prom[facility] Flower HospitalComment on above:Performed By: #### MG, SCAN CBC, CMP #### [facility] [address] [place] [address] USALymphocytes/100 WBC Auto (Bld)Ordered By: Maru Hayes on 60-95-4891Hogieawnukl/100 WBC (Bld)Lymphocytes/100 leukocytes in Blood by Automated count.Prom[facility] Flower HospitalLymphocytes/100 leukocytes in Blood by Automated countOrdered By: Maru Hayes on 62-82-3869Qahykuziljs/100 WBC (Bld)24.8 %Normal.[facility] Flower HospitalComment on above: Performed By: #### MG, SCAN CBC, CMP #### [facility] [address] [place] [address] Auto (RBC) [Entitic mass]Ordered By: Maru Hayes on 10-32-3015OSA (RBC) [Entitic mass]MCH [Entitic mass] by Automated count27.5-35.2 [facility] [Entitic mass] by Automated countOrdered By: Maru Hayes on 77-76-0692ZVB (RBC) [Entitic mass]30.5 mrOzbouu14.5-35.2 [facility]lower HospitalComment on above:Performed By: #### MG, SCAN CBC, CMP #### [facility] [address] [place], [place] [address] [facility] Auto (RBC) [Mass/Vol]Ordered By: Maru Hayes on 39-70-0900PJRT (RBC) [Mass/Vol]MCHC [Mass/volume] by Automated count32.5-35.6 [facility] (RBC) [Mass/Vol]33.3 g/dL32.5-35.6 [facility] HealthV Auto (RBC) [Entitic vol]Ordered By: Maru Hayes on 20-01-3049HXW (RBC) [Entitic vol]MCV [Entitic volume] by Automated count83.5-101Fire[facility] Regional Medical CenterMCV [Entitic volume] by Automated countOrdered By: Maru Hayes on 13-92-0906IYB (RBC) [Entitic vol]91.7 fL Evebpg41.5-101Prom[facility] Flower HospitalComment on above:Performed By: #### MG, SCAN CBC, CMP #### [facility] [address] [place] [address] USAMonocyte distribution width [Entitic volume] in Blood by AutomatedOrdered By: Maru Hayes on 81-87-0421Kwimikvz distribution width Auto (Bld) [Entitic vol]Monocyte distribution width [Entitic volume] in Blood by AutomatedHigh0.00-20.00Prom[facility] Flower HospitalComment on above:For adults in ED, MDW > 20.0 may be associated with a higher risk of sepsis during the first 12 hrs of hospital admissionMonocyte distribution width Auto (Bld) [Entitic vol]22.62 %High0.00-20.00Prom[facility] Flower HospitalComment on above:For adults in ED, MDW > 20.0 may be associated with a higher risk of sepsis during the first 12 hrs of hospital admissionMonocytes Auto (Bld) [#/Vol] Ordered By: Maru Hayes on 11-93-2533Uapgwioaa (Bld) [#/Vol]Automated blood monocyte count0.0-0.8Prom[facility] Flower HospitalMonocytes [#/volume] in Blood by Automated countOrdered By: Maru Hayes on 32-54-4173Vcaavbzhs (Bld) [#/Vol]0.8 10*3/uLNormal0.0-0.8Prom[facility] Flower HospitalComment on above:Performed By: #### MG, SCAN CBC, CMP #### [facility] [address] [place] [address] USAMonocytes/100 WBC Auto (Bld)Ordered By: Maru Hayes on 14-47-0778Gmcijnaxj/100 WBC (Bld)Automated monocyte %.[facility] Flower HospitalMonocytes/100 leukocytes in Blood by Automated countOrdered By: Maru Hayes on 19-09-4335Jogayeqls/100 WBC (Bld)7.2 %Normal.[facility] Flower HospitalComment on above:Performed By: #### MG, SCAN CBC, CMP #### [facility] [address] [place] [address] USANeutrophils Auto (Bld) [#/Vol]Ordered By: Maru Hayes on 46-58-9934Mvffwpajpqy (Bld) [#/Vol]Neutrophils [#/volume] in Blood by Automated count1.8-7.7FFayette County Memorial HospitalNeutrophils [#/volume] in Blood by Automated countOrdered By: Maru Hayes on 95-37-3454Ppswumwahff (Bld) [#/Vol]7.2 10*3/uLNormal1.8-7.7FFayette County Memorial HospitalComment on above:Performed By: #### MG, SCAN CBC, CMP #### [facility] [address] [place] [address] USANeutrophils/100 WBC Auto (Bld)Ordered By: Maru Hayes on 1939Ovfqbdtnitu/100 WBC (Bld)Automated neutrophil %.[facility] Flower HospitalNeutrophils/100 leukocytes in Blood by Automated countOrdered By: Maru Hayes on 69-52-9329Fgjujtgyzgm/100 WBC (Bld)64.3 %Normal.[facility] Flower HospitalComment on above:Performed By: #### MG, SCAN CBC, CMP #### [facility] [address] [place] [id number] USANitrite Test strip Ql (U)Ordered By: Maru Hayes on 36-91-6700Jwcjlxb Ql (U)Nitrite [Presence] in Urine by Test stripNegative [facility] Flower HospitalNitrite Ql (U)NegativeNegativePromedica Flower HospitalNo Panel InformationOrdered By: Maru Hayes on 72-82-8769Zkpwbkuxd GFR (CKD-EPI)> 60.0 mL/MinPromedica Flower Hospital Pharmacy Creatinine Clearance (Chem59.79[facility] Nucleated erythrocytes [Presence] in Blood by Automated countOrdered By: Maru Hayes on 47-02-1263Gegmucodd RBC Auto Ql (Bld)Nucleated erythrocytes [Presence] in Blood by Automated count0-0.5FFayette County Memorial Hospital Nucleated RBC Auto Ql (Bld)0.0 /100{WBC}0-0.5FFayette County Memorial Hospital Platelet mean volume Auto (Bld) [Entitic vol]Ordered By: Maru Hayes on 79-79-7746Nubfgmkz mean volume (Bld) [Entitic vol]Platelet mean volume [Entitic volume] in Blood by Automated count6.6-10.1FFayette County Memorial Hospital Platelet mean volume [Entitic volume] in Blood by Automated countOrdered By: Maru Hayes on 00-07-6870Ujbnrqfw mean volume (Bld) [Entitic vol]8.3 fLNormal 6.6-10.1FFayette County Memorial HospitalComment on above:Performed By: #### MG, SCAN CBC, CMP #### [facility] [address] [place] [address] USAPlatelets Auto (Bld) [#/Vol]Ordered By: Maru Hayes on 85-06-2697Kirboqutr (Bld) [#/Vol]Platelets [#/volume] in Blood by Automated umejz656-585YmtcozhbbPromedica Flower HospitalPlatelets [#/volume] in Blood by Automated countOrdered By: Maru Hayes on 52-11-7306Uuhzufmyu (Bld) [#/Vol] 226 10*3/aIPhfgus034-263Jhoppxm[address] [place], [place] [address]Comment on above: Performed By: #### MG, SCAN CBC, CMP #### [facility] [address] [place], [place] [address] [facility] Healthon 88-75-0320XkepnamaetLifecare Hospital of Pittsburgh Case Information Case Priority: None Programs: -- Referral Source: Type Proof Reproducer Referral Reason: Care coordination Case Type: Transition [...] to opioid therapy 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 Home [...] patch(es), Topical, q72hr fluticasone Nasal 0.05 mg/inh [place], See Instructions furosemide 20 mg Tab, 20 [...] US of the liver at [facility] 09/14, buthe has not heard from [facility], a message sent to clinical for f/u. Patient denies any further questions or concerns. Communication Events Date: September 20, 2024 Method: Phone call Type: Outbound Duration (min): 3 Outcome: Case discussion Contact Type: Patient Contact Name: B (more content not included)...NormalBarnesville HospitalPotassium [Moles/volume] in Serum or PlasmaOrdered By: Maru Hayes on 24-32-4405Bivuwobbj [Moles/Vol]Potassium [Moles/volume] in Serum or Plasma3.5-5.1FFayette County Memorial Hospital Potassium [Moles/Vol]4.0 mmol/LNormal3.5-5.1FFayette County Memorial Hospital Comment on above:Performed By: #### MG, SCAN CBC, CMP #### [facility] [address] [place] [address] USAProtein Test strip (U) [Mass/Vol]Ordered By: Maru Hayes on 60-94-4768Lkslugr (U) [Mass/Vol]Protein [Mass/volume] in Urine by Test stripNegativePromedica Flower HospitalProtein (U) [Mass/Vol] NegativeNegativePromedica Flower HospitalProtein [Mass/volume] in Serum or PlasmaOrdered By: Maru Hayes on 87-47-0342Duaauhc [Mass/Vol]Protein [Mass/volume] in Serum or Plasma6.4-8.9Prom[facility]ica Flower HospitalProtein [Mass/Vol]6.4 g/dLNormal6.4-8.9Prom[facility] Flower HospitalComment on above:Performed By: #### MG, SCAN CBC, CMP #### [facility] [address] [place] [address] USARBC Auto (Bld) [#/Vol]Ordered By: Maru Hayes on 56-74-1568BZT (Bld) [#/Vol]Erythrocytes [#/volume] in Blood by Automated count Low3.90-5.60[facility] [facility] globulin [facility] by calculation (mass/volume)Ordered By: Maru Hayes on 61-68-5785Ukewiikm (S) [Mass/Vol]2.9 g/dLNoSelect Medical OhioHealth Rehabilitation HospitalComment on above: Performed By: #### MG, SCAN CBC, CMP #### [place] [address] USASerum or plasma albumin/globulin mass ratioOrdered By: Maru Hayes on 63-00-6178Adgrskn/Globulin [Mass ratio]Serum or plasma albumin/globulin mass ratioPromedica Flower HospitalAlbumin/Globulin [Mass ratio]1.2 {ratio}NormalPromedica Flower HospitalComment on above: Performed By: #### MG, SCAN CBC, CMP #### [facility] [address] [id number] USASerum or plasma anion gap determinationOrdered By: Maru Hayes on 46-47-8894Oouid gap [Moles/Vol]Serum or plasma anion gap determination6.0-15.0Promedica Flower HospitalAnion gap [Moles/Vol]10.2 mmol/LNormal6.0-15.0Promedica Flower HospitalComment on above:Performed By: #### MG, SCAN CBC, CMP #### [facility] [address] [id number] USASerum or plasma non-glucuronidated bilirubin measurement (mass/volume)Ordered By: Maru Hayes on 75-07-8114Uauqidzfl.indirect [Mass/Vol]Serum or plasma non-glucuronidated bilirubin measurement (mass/volume) Promedica Flower HospitalBilirubin.indirect [Mass/Vol]0.4 mg/dLRegency Hospital Cleveland Eastodium [Moles/volume] in Serum or PlasmaOrdered By: Maru Hayes on 76-75-2221Qiqqjz [Moles/Vol]Sodium [Moles/volume] in Serum or Quhngh367-762CidlujasjRegency Hospital Cleveland Eastodium [Moles/Vol]137 mmol/LNormal 136-145Promedica Flower HospitalComment on above:Performed By: #### MG, SCAN CBC, CMP #### [facility] [address] [id number] USASpecific gravity Test strip (U) [Rel density]Ordered By: Maru Hayes on 43-48-1714Uipdqtwj gravity (U) [Rel density]Specific gravity of Urine by Test stripHigh1.001-1.030Regency Hospital [facility] Eastpecific gravity (U) [Rel density]1.711Rvcv6.001-1.030[facility] Troponin I High Sensitivityon 88-92-8072Dkmgdcmj I High Xlfvfvxxmft2Linyoz5-03 [facility] Physician GroupComment on above:Result Comment: The Troponin units of report have been changed to meet the Chest Pain Accreditation requirement, element EC5.M1l2. Troponin units are changed from pg/ml to ng/L. Also, the decimal is removed and results are in whole numbers. PERFORMED BY: [place] [id number] PATHOLOGIST SUPERVISOR MOLDING HEBER SHANNON M.D.Performed By: #### HS TROP #### [facility] [address] [place] [address] USATroponin I.cardiac [Mass/volume] in Serum or Plasma by Detection limit <= 0.01 ng/Ordered By: Maru Hayes on 66-97-1701Vvzlslro I.cardiac DL <= 0.01 ng/mL [Mass/Vol]Troponin I.cardiac [Mass/volume] in Serum or Plasma by Detection limit <= 0.01 ng/0-[facility] Comment on above:The Troponin units of report have been changed to meet the Chest Pain Accreditation requirement, element EC5.M1l2. Troponin units are changed from pg/ml to ng/L. Also, the decimal is removed and results are in whole numbers.Troponin I.cardiac [Mass/volume] in Serum or Plasma by Detection limit <= 0.01 ng/mLOrdered By: Maru Hayes on 72-51-1156Fwzczhqt I.cardiac DL <= 0.01 ng/mL [Mass/Vol]7 ng/LPromedica Flower HospitalComment on above:The Troponin units of report have been changed to meet the Chest Pain Accreditation requirement, element EC5.M1l2. Troponin units are changed from pg/ml to ng/L. Also, the decimal is removed and results are in whole numbers. Urea nitrogen [Mass/volume] in Serum or PlasmaOrdered By: Maru Hayes on 22-53-8595Xejc nitrogen [Mass/Vol]Urea nitrogen [Mass/volume] in Serum or Plasma 12-08Promedica Flower HospitalUrea nitrogen [Mass/Vol]20 mg/dLNormal12-08 Prom[facility]ica Flower HospitalComment on above:Performed By: #### MG, SCAN CBC, CMP #### [facility] [address] [place] [address] USAUrinalysison 81-23-1285Gzuqflriq,UrineNegativeNormal NegativeThe [facility] Center Physician GroupComment on above:Order Comment: Name Collection Type:: Clean-Voided MidstreamPerformed By: #### UA #### [place] [address] USAGlucose Ql (U)NormalNormalNormalThe [facility] Physician GroupComment on above:Order Comment: Name Collection Type:: Clean-Voided MidstreamPerformed By: #### UA #### [place] [address] USANitrite,UrineNegativeNormalNegativeThe [facility] Physician GroupComment on above:Order Comment: Name Collection Type:: Clean-Voided MidstreamPerformed By: #### UA #### [place] [address] USAOccult Blood,UrineNegativeNormalNegativeThe [facility] Physician GroupComment on above:Order Comment: Name Collection Type:: Clean- Voided MidstreamResult Comment: PERFORMED BY: [place] [address] PATHOLOGIST SUPERVISOR MOLDING HEBER SHANNNO M.D.Performed By: #### UA #### [place] [address] USAProtein,UrineNegativeNormalNegativeThe [facility] Physician GroupComment on above:Order Comment: Name Collection Type:: Clean-Voided MidstreamPerformed By: #### UA #### [place] [address] USASpecificy Anton,Urine1.143Ittl2.001-1.030[facility] Physician GroupComment on above:Order Comment: Name Collection Type:: Clean- Voided MidstreamPerformed By: #### UA #### [place] [address] USAUrobilinogen,UrineNormalNormalNormalThe [facility] Physician GroupComment on above:Order Comment: Name Collection Type:: Clean- Voided MidstreamPerformed By: #### UA #### [facility] [address] [place] [address] USAUrobilinogen Test strip (U) [Mass/Vol]Ordered By: Maru Hayes on 43-68-1718Dbckthagvlxy (U) [Mass/Vol]Urobilinogen [Mass/volume] in Urine by Test stripNoSelect Medical OhioHealth Rehabilitation HospitalUrobilinogen (U) [Mass/Vol]Normal mg/dLNoSelect Medical OhioHealth Rehabilitation HospitalWBC Auto (Bld) [#/Vol]Ordered By: Maru Hayes on 90-90-6886ZIJ (Bld) [#/Vol]Leukocytes [#/volume] in Blood by Automated countHigh4.1-10.5FFayette County Memorial HospitalpH Test strip (U)Ordered By: Maru Hayes on 86-39-1083kV (U)pH of Urine by Test strip5.0-9.0Promedica Flower HospitalpH of Urine by Test strip Ordered By: Maru Hayes on 24-36-6492oX (U)5.0 [pH]Normal5.0-9.0Promedica Flower HospitalComment on above:Order Comment: Name Collection Type:: Clean-Voided MidstreamPerformed By: #### UA #### [facility] [address] [place] [address] USAAmbulatory Visit Summaryon 01-28-9617Akdeaujjzm Visit SummaryAmbulatory Visit Summary JEREMIE BENNETT :1940 Visit Date:09/14/2024 [...] Film) fluticasone nasal (fluticasone Nasal 0.05 mg/inh [place]) furosemide (furosemide 20 mg Tab) irbesartan (irbesartan [...] Esophagogastroduodenoscopy (05/20/2020), Angioplasty, Cardiac pacemaker procedure, Cataract, Cholecystectomy,Colonoscopy, Hernia repair, Prostate excision, Tonsillectomy, Vasectomy. Discharge Vitals Temperature (Tympanic) 36.8 ???C Heart Rate (Peripheral) 60 Respiratory Rate 18 Height 160 cm Height 63 in Weight 64.1 kg Weight 141.316 lb BMI 25.04 What to do next Scheduled Follow-Up Appointments 2024 2:40 PM EDT With: Demetrius Cooper MD Where: [address] [id number]- Wednesday 2:30 PM EDT With: Where: [address] [address]- Wednesday 3:20 PM EDT With: Demetrius Cooper MD. Where: [place] [address]- Medications What How Much When Instructions Unchanged [...] fluticasone nasal (fluticasone Nasal 0.05 mg/ inh [place]) See instructions USE 1 SPRAY IN BOTH [...] Cancer associated pain Cervic (more content not included)...[facility] Medicine Office/Clinic Noteon 21-48-9205Ulsdxr Medicine Office/Clinic NoteHigh Point Hospital Medicine Office/Clinic Note Chief Complaint ACute Visit [...] not eating and so he is not havingissues with his blood sugar. Review of Systems [...] to palpation in the right upper quadrant., Non- distended, + BS Assessment/Plan 1. RUQ pain (R10.11: Right upper quadrant pain) At this time I am unsure of the cause of the right upper quadrant pain. Will do ultrasound of the liver. Patient understands that if the pain gets worse he must go to the ER. If the pain is stable hecan wait to get the ultrasound done. Ordered: [...] to opioid therapy 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 [...] Esophagogastroduodenoscopy (05/20/2020), Angioplasty, Cardiac pacemaker procedure, Cataract, Cholecystectomy,Co (more content not included)... [place] HospitalComment on above:Result Comment: Electronically Signed By: Demetrius Cooper MD\.br\Date and Time Signed: 09/14/24 07:[address] [facility] 32-72-2535ZptjkqbkbrLifecare Hospital of [facility] Case Information Case Priority: None Programs: -- Referral Source: Type Proof Reproducer Referral Reason: Care coordination Case Type: Transition [...] to opioid therapy 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 Home [...] patch(es), Topical, q72hr fluticasone Nasal 0.05 mg/inh [place], See Instructions furosemide 20 mg Tab, 20 [...] mg= 1 tab(s), Oral, Daily Potassium Chloride (Onx-Sotk-Crh M20) 20 mEq oral tablet, extended release [...] is currently on his way to see onco.Reports his mouth is still sore, but better. Notes he is eating the same and drinking well. Notes it is difficult swallowing pills d/t the back of his tongue being 'raw.' Patient states magic peggy (more content not included)...[facility] Urineon 49-31-5191Hafhlguj identified Cx Nom (U)Microbiology PROCEDURE: Urine Culture [R1] SOURCE: U Random BODY SITE: COLLECTED DATE/TIME: 08/30/2024 10:11 EDT RECEIVED DATE/TIME: 08/30/2024 18:09 EDT START DATE/TIME: 08/30/2024 18:09 EDT FREE TEXT SOURCE: Yajaira Dunn Jodi L FINAL REPORTS Final Report [] Verified Date/Time: 09/01/2024 10:22 EDT 200 cfu/ml Mixed skin contaminants Performing Locations R1: This test was performed at: [facility], [address] [place] [address], [address] , [place], OrceanAizvffPomerene HospitalComment on above:Performed By: #### [id number] #### [facility] [address] [place] [address]Dpmnjvaewe Visit Summaryon 67-68-8622Slevntthsv Visit Summary Ambulatory Visit Summary JEREMIE BENNETT [...] Film) fluticasone nasal (fluticasone Nasal 0.05 mg/inh [place]) furosemide (furosemide 20 mg Tab) irbesartan (irbesartan [...] mL oral solution) potassium chloride (Potassium Chloride (Xho-Gwgi-Jhs M20) 20 mEq oral tablet, extended release) rosuvastatin (rosuvastatin 10 mg Tab) senna (Senna 8.6 mg oral tablet) silver sulfADIAZINE topical (SSD 1% topical cream) sotalol (sotalol 80 mg Tab) tizanidine (tiZANidine 4 mg Tab) zonisamide (zonisamide 25 mg Cap) Procedures Performed Ablation (08/17/2023), Colonoscopy (06/14/2023), Esophagogastroduodenoscopy (04/15/2023), Esophagogastroduodenoscopy (05/20/2020), Angioplasty, Cardiac pacemaker procedure, Cataract, Cholecystectomy,Colonoscopy, Hernia repair, Prostate excision, Tonsillectomy, Vasectomy. Discharge Vitals Temperature (Tympanic) 36.8 ???C Heart Rate (Peripheral) 60 Respiratory Rate 18 Blood Pressure 118/76 Height 160 cm Height 63 in Weight 68.7 kg Weight 151.457 lb BMI 26.84 What to do next Scheduled Follow-Up Appointments Wednesday 2:30 PM EDT With: Where: [address] [address]- Wednesday 3:20 PM EDT With: Allison CASON, Demetrius Rosa Where: [address] [address]- Medications What How Much When Instructions Unchanged [...] fluticasone nasal (fluticasone Nasal 0.05 mg/ inh [place]) See instructions USE 1 SPRAY IN BOTH [...] See instructions one touch ultra lancets Use totest sugars once a day Unchanged Misc Prescription [...] 1 TABLET BY MOUTH FOUR TIMES DAILY FOR14 DAYS Unchanged olanzapine (olanzapine 2.5 mg Tab) TAKE 1 TABLET BY MOUTH TWICE DAILY Unchanged omeprazole (omeprazole 40 mg Cap-DR) See instructions TAKE 1 CAPSULE BY MOUTH DAILY Unchanged ondansetron (onda (more content not included)...[facility] Medicine Office/Clinic Noteon 77-03-7792Wasrxu Medicine Office/Clinic NoteFami Medicine Office/Clinic Note Chief Complaint Acute Visit [...] Urnls Dip Stick Auto w/o Microscopy POC 837[address] 2. Urinary hesitancy (R39.11: Hesitancy of micturition) u/a negative for nitrites and leuks. but looks like he is dehydrated. will send for culture. encouraged him to try to drink water throughout the day. his states he isn't eating or drinking much because his throat and back of his tongue hurt so much from radiation. discussed just taking sips ofwater every 20- 30 minutes to help get him rehydrated. mucous membranes are still moist. so I don't feel he needs IV hydration. pt does not have a prostate so I don't feel that is causing the urinary hesitancy. instructed to take him to ER if he becomes weak, lethargic, or is no urinating to bemonitored for dehydration. 3. BMI 26.0-26.9,adult (Z68.26: Body [...] to opioid therapy 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 Medications [...] patch(es), Topical, q72hr fluticasone Nasal 0.05 mg/inh [place], See Instructions furosemide 20 mg Tab, 20 [...] olanzapine 2.5 mg Tab omeprazole 40 mg Sha-, See Instructions ondansetron 8 mg Dis Tab oxycodone 5 mg/5 mL oral solution Pepcid 20 mg Tab, 20 mg= 1 tab(s), Oral, Daily, 3 refills Plavix 75 mg Tab, 75 mg= 1 tab(s), Oral, Daily Potassium Chloride (Eq (more content not included)...[place] HospitalComment on above:Result Comment: Electronically Signed By: Yajaira Dunn\.br\Date and Time Signed: 08/30/24 10:45 EDTFamily Medicine Office/Clinic Noteon 21-58-6206Ipgruf Medicine Office/Clinic NoteFami Medicine Office/Clinic Note Chief Complaint TCM follow up The patient presents with concerns related to chemotherapy and radiation treatment for oropharyngeal carcinoma. HPI Staff Pt presents today for TCM follow up [place] [facility] [place]: [place]24 Symptoms the patient presented with: fever Current concerns: None at this time. Has started chemo & radiation since last encounter w/Dr Cooper. History of Present Illness Patient presents for hospital follow-up for fever and aspiration pneumonitis. 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 He unde rwent planned therapy, consisting of 33 radiation sessions [...] level of consciousness appropriate for age, CN II- XII intact, motor strength equal & normal bilaterally, speech normal Abdomen: Soft, Non-tender, Non-distended, + Bowel sounds Assessment/Plan 1. Hospital discharge follow-up (Z09: Encounter for follow-up examination after completed treatmentfor conditions other than malignant neoplasm) Reviewed discharge [...] TCM Trans care mgmt 7 day disch [id number] 2. Aspiration pneumonia (J69.0: Pneumonitis due to inhalation of food and vomit) Patient improved after antibiotic treatment for aspiration pneumonia. Monitor respiratory status and nutritional challenges affecting swallowing. Ordered: Cardiac Rehab - Ambulatory Referral TCM Trans care mgmt 7 day disch 89117 3. 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 Plan imaging for therapy assessment within three months. Focus on resolving sore throat impacting nutrition. Ordered: Cardiac Rehab - Ambulatory Referral TCM Trans care mgmt 7 day disch 64665 4. 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 Schedule appropriate follow- up tests to monitoroncologic treatment outcomes. Ordered: Cardiac Rehab - Ambulatory Referral TCM Trans care mgmt 7 day disch 00905 5. Immunosuppression (D84.9: Immunodeficiency, unspecified) Continue to see oncology Ordered: Cardiac Rehab - Ambulatory Referral TCM Trans care mgmt 7 day disch 71025 6. 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 Evaluate non-opioid pain relief methods if feasible. Ordered: TCM Trans care mgmt 7 day disch 76439 7. Nausea (R11.0: Nausea) NO issues at this time. Ordered: TCM Trans care mgmt 7 day disch 62800 8. BMI 27.0-27.9,adult (Z68.27: Body mass index [BMI] 27.0-27.9, adult) BMI education adde (more content not included)...[place] HospitalComment on above:Result Comment: Electronically Signed By: Demetrius Cooper MD\.br\Date and Time Signed: 08/24/24 09:00 EDTPre-Visit Planningon 08-24-2024 Pre-Visit PlanningPre-Visit Planning From: Bobbi Hall To: Demetrius Cooper MD; Sent: 08/23/2024 16:27:25 EDT Subject: Pre-Visit Planning Due Date/Time: 08/23/2024 16:27:00 EDT Caller Name: JEREMIE BENNETT; Caller Number: , Pa Dr. Cooper. During a pre-visit planning chart [...] feel free to contact me at extension [phone]. Thank you! Bobbi Hall LPN Clinical Phonograph Mechanic [place] [address] Extension: 1882 [email or web address] From: Demetrius Cooper MD To: Bobbi Hall; Sent: 08/24/2024 11:34:18 EDT Subject: RE: Pre-Visit Planning Caller Name: JEREMIE BENNETT; Caller Number: H , Adrian Please [facility] 08-22-2024 [facility] Case Information Case Priority: None Programs: -- Referral Source: Type Proof Reproducer Referral Reason: Care coordination Case Type: Transition Care Management Risk Score: -- Case Status: Enrolled (August 22, 2024) Date Assigned: August 22, 2024 Assigned By: Galileo Tucker Date Enrolled: August 22, 2024 Assigned Primary Personnel: Galileo Tucker Assigned Secondary Personnel: -- Case Physician: Demetrius Cooper MD Problems Ongoing Bloating BMI 29.0-29.9,adult Cervical lymphadenopathy Cervical spondylosis Chronic GERD 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 Home [...] patch(es), Topical, q72hr fluticasone Nasal 0.05 mg/inh [place], See Instructions furosemide 20 mg Tab, 20 [...] Care Plan Progress Note Ad[place] Date[place] [facility] [place] of Discharge: 08/21/24 Follow-up appointment scheduled? yes, [facility]. Cooper [facility] f/u 08/24/24 at 0745 Did you [...] your pills? some discomfort d/t effects of radiationmaking it difficult to swallow Ar (more content not included)...[place] HospitalAlanine aminotransferase [Enzymatic activity/volume] in Serum or PlasmaOrdered By: Jaiden Nance on 39-41-9637UYL [Catalytic activity/Vol]Alanine aminotransferase [Enzymatic activity/volume] in Serum or PlasmaPromedica Flower HospitalAlbumin [Mass/volume] in Serum or Plasma by Bromocresol green (BCG) dye binding methoOrdered By: Jaiden Nance on 50-73-7356Wxfqhcj BCG dye [Mass/Vol] Albumin [Mass/volume] in Serum or Plasma by Bromocresol green (BCG) dye binding methoLow3.5-5.7FFayette County Memorial HospitalAlkaline phosphatase [Enzymatic activity/volume] in Serum or PlasmaOrdered By: Jaiden Nance on 01-99-5356YTV [Catalytic activity/Vol]Alkaline phosphatase [Enzymatic activity/volume] in Serum or Xvnndb04-664RhlqgduvwPromedica Flower HospitalAspartate aminotransferase [Enzymatic activity/volume] in Serum or PlasmaOrdered By: Jaiden Nance on 83-52-5121FGF [Catalytic activity/Vol]Aspartate aminotransferase [Enzymatic activity/volume] in Serum or Hfxcja14-39QmkvvznwvPromedica Flower Hospital Basophils Auto (Bld) [#/Vol]Ordered By: Jaiden Nance on 76-02-0251Goowgsytt (Bld) [#/Vol]Automated basophil count0.0-0.2FFayette County Memorial Hospital Basophils/100 WBC Auto (Bld)Ordered By: Jaiden Nance on 57-12-9924Qgukpmjmv/100 WBC (Bld)Automated basophil %.Promedica Flower HospitalBilirubin.total [Mass/volume] in Serum or PlasmaOrdered By: Jaiden Nance on 71-52-3090Pnylisjfk [Mass/Vol]Bilirubin.total [Mass/volume] in Serum or Plasma0.3-1.0Promedica Flower HospitalCT chest wo conon 61-03-7091NH chest wo [facility] [place] [address] CT Scan Report Signed Patient: Jeremie Benntet MR#: [id number] : 1940 Acct:[id number] Age/Sex: 83 / M ADM Date: 08/20/24 Loc: Room: [address] [place] [address] Type: ADM IN Attending Dr: Jaiden Nance MD Copies to: Jaiden Nanec MD Ordering Provider: Jaiden Nance MD Date [...] Christian Melton M.D.08/21/2024 5:58 AM Dictation Location: [place] [address] Transcribed By: [facility] 08/21/24 0558 Dictated By: Christian Melton DO 08/21/24 0555 Signed By: 08/21/24 0558[facility] Physician GroupCalcium [Mass/volume] in Serum or PlasmaOrdered By: Jaiden Nance on 18-17-5096Cgnigpi [Mass/Vol]Calcium [Mass/volume] in Serum or PlasmaLow8.6-10.3FFayette County Memorial Hospital Carbon dioxide, total [Moles/volume] in Serum or PlasmaOrdered By: Jaiden Nance on 51-90-5057VT4 [Moles/Vol]Carbon dioxide, total [Moles/volume] in Serum or Yktrdc10.0-31.0Promedica Flower HospitalChloride [Moles/volume] in Serum or PlasmaOrdered By: Jaiden Nance on 75-06-2216Ldcqtxus [Moles/Vol]Chloride [Moles/volume] in Serum or WozjamQgaw43-322NjwomyufwPromedica Flower Hospital Complete Blood Count Auto Diffon 11-20-3387Jpodkcksu (Bld) [#/Vol]0.0 10*3/uL Normal0.0-0.2[facility] Physician GroupComment on above:Result Comment: PERFORMED BY: [place] [address] PATHOLOGIST SUPERVISOR MOLDING HEBER SHANNON M.D.Performed By: #### UA #### [place] [address] USABasophils/100 WBC (Bld)0.6 %Normal.[facility] Physician GroupComment on above:Performed By: #### UA #### [place] [address] USAEosinophils (Bld) [#/Vol]0.1 10*3/uLNormal0.0-0.45The [facility] Physician GroupComment on above:Performed By: #### UA #### [place] [address] USAEosinophils/100 WBC (Bld)1.0 %Normal.[facility] Physician GroupComment on above:Performed By: #### UA #### [place] [address] USAErythrocyte distribution width (RBC) [Ratio]14.8 %Normal 12.0-14.8The [facility] Physician GroupComment on above:Performed By: #### UA #### [place] [address] USAHematocrit (Bld) [Volume fraction]30.5 %Low38.8-50.0[facility] Physician GroupComment on above:Performed By: #### UA #### [place] [address] USAHemoglobin (Bld) [Mass/Vol]10.4 g/dLLow13.0-17.0[facility] Physician GroupComment on above:Performed By: #### UA #### [place] [address] USALymphocytes (Bld) [#/Vol]0.6 10*3/uLLow1.00-4.8The [facility] Physician GroupComment on above:Performed By: #### UA #### [facility] [address] [place] [address] USALymphocytes/100 WBC (Bld)9.0 %Normal.[facility] Physician GroupComment on above:Performed By: #### UA #### [facility] [address] (RBC) [Entitic mass]31.3 xrHbvzzy43.5-35.2The [facility] Physician GroupComment on above:Performed By: #### UA #### [facility] [address] (RBC) [Entitic vol]91.6 oMRvtupq80.5-101The [facility] Physician GroupComment on above:Performed By: #### UA #### [facility] [address] [place] [address] USAMean Corpuscular HGB Conc34.2 g/qNDnmsde77.5-35.6The [facility] Physician GroupComment on above:Performed By: #### UA #### [facility] [address] [place] [address] USAMonocytes (Bld) [#/Vol]0.8 10*3/uLNormal0.0-0.8[facility] Physician GroupComment on above:Performed By: #### UA #### [facility] [address] [place] [address] USAMonocytes/100 WBC (Bld)13.6 %Normal.[facility] Physician GroupComment on above:Performed By: #### UA #### [facility] [address] [place] [address] USANeutrophils (Bld) [#/Vol]4.7 10*3/uLNormal1.8-7.7The [facility] Physician GroupComment on above:Performed By: #### UA #### [facility] [address] [place] [address] USANeutrophils/100 WBC (Bld)75.8 %Normal.The [facility] Physician GroupComment on above:Performed By: #### UA #### [facility] [address] [place] [address] USANRBC%0.1 /100{WBC}Normal0-0.5[facility] Comment on above:Performed By: #### UA #### [facility] [address] [place] [address] USAPlatelet mean volume (Bld) [Entitic vol]8.2 fLNormal 6.6-10.1The [facility] Physician GroupComment on above:Performed By: #### UA #### [place] [address] USAPlatelets (Bld) [#/Vol]190 10*3/vRMbhwab280-098Xxu [facility] Physician GroupComment on above:Performed By: #### UA #### [place] [address] USARBC (Bld) [#/Vol]3.33 10*6/uLLow3.90-5.60The [facility] Physician GroupComment on above:Performed By: #### UA #### [place] [address] USAWBC (Bld) [#/Vol]6.2 10*3/uLNormal4.1-10.5The [facility] Physician GroupComment on above:Performed By: #### UA #### [place] [address] USAComprehensive Metabolic Panelon 72-64-5555Vjpimyd [Mass/Vol]2.9 g/dLLow3.5-5.7The [facility] Physician GroupComment on above: Performed By: #### UA #### [place] [address] USAAlbumin/Globulin [Mass ratio]1.2 {ratio}NormalThe [facility] Physician GroupComment on above:Performed By: #### UA #### [place] [address] USAALP [Catalytic activity/Vol]52 U/XYoypyy96-773Nzd [facility] Physician GroupComment on above:Performed By: #### UA #### [facility] [address] [place] [address] USAALT [Catalytic activity/Vol]14 U/LNormal7-52The [facility] Physician GroupComment on above:Performed By: #### UA #### [facility] [address] [place] [address] USAAnion gap [Moles/Vol]9.1 mmol/LNormal6.0-15.0The [facility] Physician GroupComment on above:Performed By: #### UA #### [facility] [address] [place] [address] USAAST [Catalytic activity/Vol]15 U/ZObrsms20-38Qxi [facility] Physician GroupComment on above:Performed By: #### UA #### [facility] [address] [place] [address] USABilirubin [Mass/Vol]0.6 mg/dLNormal0.3-1.0The [facility] Physician GroupComment on above:Performed By: #### UA #### [facility] [address] [place] [address] USACalcium [Mass/Vol]8.2 mg/dLLow8.6-10.3The [facility] Physician GroupComment on above:Performed By: #### UA #### [facility] [address] [place] [address] USAChloride [Moles/Vol]108 mmol/EVzpv58-242Fpe [facility] Physician GroupComment on above:Performed By: #### UA #### [facility] [address] [place] [address] USACO2 [Moles/Vol]24.2 mmol/CYqinph53.0-31.0The [facility] Physician GroupComment on above:Performed By: #### UA #### [facility] [address] [place] [address] USACreatinine [Mass/Vol]0.75 mg/dLNormal0.70-1.30The [facility] Physician GroupComment on above:Performed By: #### UA #### [facility] [address] [place], [place] [address] USACreatinine Clr Calc Ztjpgluv25.79NormGalion Community Hospitale [facility] Physician GroupComment on above:Performed By: #### UA #### [place] [address] USAGFR/1.73 sq M.predicted MDRD (S/P/Bld) [Vol rate/Area] mL/min/{1.73_m2}NormalThe [facility] Physician GroupComment on above:Performed By: #### UA #### [place] [address] USAGlobulin (S) [Mass/Vol]2.4 g/dLNoPending sale to [facility] Physician GroupComment on above:Performed By: #### UA #### [place] [address] USAGlucose [Mass/Vol]94 mg/iHCxtqzw24-952Ahu [facility] Physician GroupComment on above:Result Comment: Random Glucose Reference Range is dependent on time and content of last meal. Glucose of more than 200 mg/dL in a nonstressed, ambulatory subject supports the diagnosis of Diabetes Mellitus. ADA recommended reference rangePerformed By: #### UA #### [place] [address] USAPotassium [Moles/Vol]3.3 mmol/LLow3.5-5.1The [facility] Physician GroupComment on above:Performed By: #### UA #### [place] [address] USAProtein [Mass/Vol]5.3 g/dLLow6.4-8.9The [facility] Physician GroupComment on above:Performed By: #### UA #### [place] [address] USASodium [Moles/Vol]138 mmol/HKtyyit180-375Mgc [facility] Physician GroupComment on above:Performed By: #### UA #### [place] [address] USAUrea nitrogen [Mass/Vol]10 mg/dLNormal7-25The [facility] Physician GroupComment on above:Performed By: #### UA #### [facility] [address] [place] [address] USACreatinine [Mass/volume] in Serum or PlasmaOrdered By: Jaiden Nance on 44-53-5295Elilffejar [Mass/Vol]Creatinine [Mass/volume] in Serum or Plasma0.70-1.30[facility] HospitalEosinophils Auto (Bld) [#/Vol]Ordered By: Jaiden Nance on 39-24-1399Zkvuibhtjev (Bld) [#/Vol]Automated eosinophil count0.0-0.45[facility] HospitalEosinophils/100 WBC Auto (Bld)Ordered By: Jaiden Nance on 95-93-3647Ablakvpqbeq/100 WBC (Bld) Automated eosinophil %.[facility] HospitalErythrocyte distribution width Auto (RBC) [Ratio]Ordered By: Jaiden Nance on 19-79-6492Sdxmsuirfsp distribution width (RBC) [Ratio]Erythrocyte distribution width [Ratio] by Automated count12.0-14.8[facility] HospitalGlobulin Calc (S) [Mass/Vol]Ordered By: Jaiden Nance on 91-38-3377Rmkoobvv (S) [Mass/Vol]Serum globulin measurement by calculation (mass/volume)[facility] HospitalGlucose [Mass/volume] in Serum or PlasmaOrdered By: Jaiden Nance on 62-14-3533Pafjapq [Mass/Vol]Glucose [Mass/volume] in Serum or Gbglyq55-003 [facility]lower HospitalComment on above:ADA recommended reference rangeRandom Glucose Reference Range is dependent on time and content of last meal. Glucose of more than 200 mg/dL in a nonstressed, ambulatory subject supports the diagnosisof Diabetes Mellitus.Hematocrit Auto (Bld) [Volume fraction]Ordered By: Jaiden Nance on 89-30-5788Stectfwvfg (Bld) [Volume fraction]Hematocrit [Volume Fraction] of Blood by Automated ybgcsUoc96.8-50.0 [facility] HospitalHemoglobin [Mass/volume] in BloodOrdered By: Jaiden Nance on 84-18-1834Slardufenr (Bld) [Mass/Vol]Hemoglobin [Mass/volume] in ZilaeMbl79.0-17.0[facility] HospitalLeukocytes [#/volume] corrected for nucleated erythrocytes in Blood by Automated counOrdered By: Jaiden Nance on 01-22-1132ONN corrected for nucl RBC Auto (Bld) [#/Vol] Leukocytes [#/volume] corrected for nucleated erythrocytes in Blood by Automated coun4.1-10.5FFayette County Memorial HospitalLymphocytes Auto (Bld) [#/Vol] Ordered By: Jaiden Nance on 58-53-2258Fbptpljprbm (Bld) [#/Vol]Lymphocytes [#/volume] in Blood by Automated countLow1.00-4.8[facility] HospitalLymphocytes/100 WBC Auto (Bld)Ordered By: Jaiden Nance on 08-21-2024 Lymphocytes/100 WBC (Bld)Lymphocytes/100 leukocytes in Blood by Automated count. Premier HealthH Auto (RBC) [Entitic mass]Ordered By: Jaiden Nance on 05-05-1073WPY (RBC) [Entitic mass]MCH [Entitic mass] by Automated count27.5-35.2FFayette County Memorial HospitalMCHC Auto (RBC) [Mass/Vol]Ordered By: Jaiden Nance on 27-44-2686MMFA (RBC) [Mass/Vol]MCHC [Mass/volume] by Automated count32.5-35.6FOur Lady of Mercy Hospital - AndersonV Auto (RBC) [Entitic vol]Ordered By: Jaiden Nance on 50-46-5922AXG (RBC) [Entitic vol]MCV [Entitic volume] by Automated count83.5-101Prom[facility]lower HospitalMagnesiumon 07-08-5869Fgdjfcojy [Mass/Vol]1.8 mg/dLLow1.9-2.7The [facility] Physician GroupComment on above:Result Comment: PERFORMED BY: [place] [address] PATHOLOGIST SUPERVISOR MOLDING HEBER SHANNON M.D.Performed By: #### UA #### [place] [address] USAMagnesium [Mass/volume] in Serum or PlasmaOrdered By: Jaiden Nance on 92-17-9575Dtcsglzwv [Mass/Vol]Magnesium [Mass/volume] in Serum or PlasmaLow1.9-2.7FFayette County Memorial HospitalMonocytes Auto (Bld) [#/Vol] Ordered By: Jaiden Nance on 01-30-5274Nnqhcrwkg (Bld) [#/Vol]Automated blood monocyte count0.0-0.8[facility] HospitalMonocytes/100 WBC Auto (Bld)Ordered By: Jaiden Nance on 23-55-7840Jdosgnalw/100 WBC (Bld)Automated monocyte %.[facility] HospitalNeutrophils Auto (Bld) [#/Vol] Ordered By: Jaiden Nance on 44-19-5253Xjtwldafagz (Bld) [#/Vol]Neutrophils [#/volume] in Blood by Automated count1.8-7.7FFayette County Memorial Hospital Neutrophils/100 WBC Auto (Bld)Ordered By: Jaiden Nance on 08-21-2024 Neutrophils/100 WBC (Bld)Automated neutrophil %.[facility] HospitalNo Panel InformationOrdered By: Jaiden Nance on 08-61-0972Kgffrqgtu GFR (CKD-EPI)> 60.0 mL/MinPromedica Flower HospitalPharmacy Creatinine Clearance (Chem59.79Prom[facility]lower HospitalNucleated erythrocytes [Presence] in Blood by Automated countOrdered By: Jaiden Nanec on 08-21-2024 Nucleated RBC Auto Ql (Bld)Nucleated erythrocytes [Presence] in Blood by Automated count0-0.5FFayette County Memorial HospitalPlatelet mean volume Auto (Bld) [Entitic vol]Ordered By: Jaiden Nance on 34-82-8699Ffnosgfv mean volume (Bld) [Entitic vol]Platelet mean volume [Entitic volume] in Blood by Automated count6.6-10.1FFayette County Memorial HospitalPlatelets Auto (Bld) [#/Vol] Ordered By: Jaiden Nance on 99-07-8694Zfqpvaywo (Bld) [#/Vol]Platelets [#/volume] in Blood by Automated osqhy969-754TvuhfrdyoPromedica Flower Hospital Potassium [Moles/volume] in Serum or PlasmaOrdered By: Jaiden Nance on 10-86-0153Qjwooomco [Moles/Vol]Potassium [Moles/volume] in Serum or PlasmaLow 3.5-5.1FFayette County Memorial HospitalProtein [Mass/volume] in Serum or Plasma Ordered By: Jaiden Nance on 70-60-9169Eqjfwms [Mass/Vol]Protein [Mass/volume] in Serum or PlasmaLow6.4-8.9Prom[facility] Flower HospitalRBC Auto (Bld) [#/Vol]Ordered By: Jaiden Nance on 65-32-6933PCB (Bld) [#/Vol]Erythrocytes [#/volume] in Blood by Automated countLow3.90-5.60[facility] Easterum or plasma albumin/globulin mass ratioOrdered By: Jaiden Nance on 32-43-0799Rbpqzcd/Globulin [Mass ratio]Serum or plasma albumin/globulin mass ratioRegency Hospital Cleveland Easterum or plasma anion gap determination Ordered By: Jaiden Nance on 41-38-6486Qcvcw gap [Moles/Vol]Serum or plasma anion gap determination6.0-15.0[facility] Eastodium [Moles/volume] in Serum or PlasmaOrdered By: Jaiden Nance on 39-17-2473Hgwcmv [Moles/Vol] Sodium [Moles/volume] in Serum or Vzxmkk012-510LkanqpnvnPromedica Flower Hospital Urea nitrogen [Mass/volume] in Serum or PlasmaOrdered By: Jaiden Nance on 97-64-8583Dmth nitrogen [Mass/Vol]Urea nitrogen [Mass/volume] in Serum or Plasma 7-25Prom[facility] Flower HospitalWBC Auto (Bld) [#/Vol]Ordered By: Jaiden Nance on 63-16-5310XBX (Bld) [#/Vol]Leukocytes [#/volume] in Blood by Automated count4.1-10.5FFayette County Memorial HospitalAlanine aminotransferase [Enzymatic activity/volume] in Serum or PlasmaOrdered By: Louie Marrero on 85-72-3506CHD [Catalytic activity/Vol]Alanine aminotransferase [Enzymatic activity/volume] in Serum or Plasma7-52[facility] HospitalAlbumin [Mass/volume] in Serum or Plasma by Bromocresol green (BCG) dye binding metho Ordered By: Louie Marrero on 64-21-4931Nkcbris BCG dye [Mass/Vol]Albumin [Mass/volume] in Serum or Plasma by Bromocresol green (BCG) dye binding methoLow 3.5-5.7FFayette County Memorial HospitalAlkaline phosphatase [Enzymatic activity/volume] in Serum or PlasmaOrdered By: Louie Marrero on 68-76-5102WPE [Catalytic activity/Vol]Alkaline phosphatase [Enzymatic activity/volume] in Serum or Flhduj68-800FxjlsopaaPromedica Flower HospitalAppearance of UrineOrdered By: Louie Marrero on 43-43-6663Rgvewawcqo (U)Urine appearanceClearFFayette County Memorial HospitalAspartate aminotransferase [Enzymatic activity/volume] in Serum or PlasmaOrdered By: Louie Marrero on 28-96-6972RPH [Catalytic activity/Vol]Aspartate aminotransferase [Enzymatic activity/volume] in Serum or Mtiijl10-12OwjdomfucPromedica Flower HospitalBasophils Auto (Bld) [#/Vol]Ordered By: Louie Marrero on 90-56-7875Efbxgjbcr (Bld) [#/Vol]Automated basophil count 0.0-0.2FFayette County Memorial HospitalBasophils/100 WBC Auto (Bld)Ordered By: Louie Marrero on 92-39-4725Heuumyekt/100 WBC (Bld)Automated basophil %.[facility] F[facility] HospitalBilirubin Test strip Ql (U)Ordered By: Louie Marrero on 70-64-8337Nrwofjqis Ql (U)Bilirubin.total [Presence] in Urine by Test strip NegativePromedica Flower HospitalBilirubin.total [Mass/volume] in Serum or PlasmaOrdered By: Louie Marrero on 06-63-3349Khcckmoie [Mass/Vol] Bilirubin.total [Mass/volume] in Serum or Plasma0.3-1.0Prom[facility] Flower HospitalBioFire Not Detectedon 33-18-5957ZlzErnq Not DetectedNot detected NormalNot DetecteThe [facility] Physician GroupComment on above:Result Comment: This is a duplicate RP2.1 COVID (PCR) result to be used for statistical tracking purpose only. PERFORMED BY: [facility] [address] [place] [address] PATHOLOGIST SUPERVISOR MOLDING HEBER SHANNON M.D.Performed By: #### MG, SCAN CBC, CMP #### [facility] [address] [place] [address] USABlood Cultureon 36-07-3586Wsrnidsh identified Cx Nom (Bld) MISSED X1 PT REFUSED TO LET ME TRY AGAIN RN NORRIS KNOWS NO GROWTH 5 DAYS PERFORMED BY: [place] [address] PATHOLOGIST SUPERVISOR MOLDING HEBER SHANNON M.D.NormalAdventhealth Deltona Er Physician GroupComment on above: Performed By: #### ESR #### [place] [address] USABacteria identified Cx Nom (Bld)right chest NO GROWTH 5 DAYS PERFORMED BY: [place] [address] PATHOLOGIST SUPERVISOR MOLDING HEBER SHANNON M.D.NormalAdventhealth Deltona Er Physician GroupComment on above: Performed By: #### ESR #### [place] [address] USAC reactive protein [Mass/volume] in Serum or PlasmaOrdered By: Louie Marrero on 12-97-0208GDR [Mass/Vol]C reactive protein [Mass/volume] in Serum or PlasmaHigh0.0-0.5FFayette County Memorial HospitalC-Reactive Protein on 35-10-2177E-Reactive Protein3.3 mg/dLHigh0.0-0.5The [facility] Comment on above:Result Comment: PERFORMED BY: [place] [address] PATHOLOGIST SUPERVISOR MOLDING HEBER SHANNON M.D.Performed By: #### ESR #### [place] [address] USACOVID-19 Detected/Not DetectedOrdered By: Louie Marrero on 35-94-0102JVQY-CoV-2 (COVID-19) RNA MICHELLE+non-probe Ql (Nph)Not detectedNot DetecteFFayette County Memorial HospitalComment on above:This is a duplicate RP2.1 COVID (PCR) result to be used for statistical tracking purpose only. Calcium [Mass/volume] in Serum or PlasmaOrdered By: Louie Marrero on 08-20-2024 Calcium [Mass/Vol]Calcium [Mass/volume] in Serum or PlasmaLow8.6-10.3FFayette County Memorial HospitalCarbon dioxide, total [Moles/volume] in Serum or Plasma Ordered By: Louie Marrero on 81-94-5913ZM6 [Moles/Vol]Carbon dioxide, total [Moles/volume] in Serum or Lkhsek44.0-31.0[facility] Chloride [Moles/volume] in Serum or PlasmaOrdered By: Louie Marrero on 01-72-4883Dfisfjjn [Moles/Vol]Chloride [Moles/volume] in Serum or Fsvtnb65-670 [facility] HospitalColor Auto (U)Ordered By: Louie Marrero on 74-24-9035Wupze (U)Color of Urine by AutoYellowPromedica Flower Hospital Complete Blood Count Auto Diffon 40-32-8907Hnerdcwnr (Bld) [#/Vol]0.0 10*3/uL Normal0.0-0.2The [facility] Physician GroupComment on above:Result Comment: PERFORMED BY: [place] [address] PATHOLOGIST SUPERVISOR MOLDING HEBER SHANNON M.D.Performed By: #### UA #### [facility] [address] [place] [address] USABasophils/100 WBC (Bld)0.5 %Normal.The [facility] Physician GroupComment on above:Performed By: #### UA #### [facility] [address] [place] [address] USAEosinophils (Bld) [#/Vol]0.1 10*3/uLNormal0.0-0.45The [facility] Physician GroupComment on above:Performed By: #### UA #### [facility] [address] [place] [address] USAEosinophils/100 WBC (Bld)0.7 %Normal.The [facility] Physician GroupComment on above:Performed By: #### UA #### [place] [address] USAErythrocyte distribution width (RBC) [Ratio]14.8 %Normal 12.0-14.8The [facility] Physician GroupComment on above:Performed By: #### UA #### [place] [address] USAHematocrit (Bld) [Volume fraction]34.2 %Low38.8-50.0The [facility] Physician GroupComment on above:Performed By: #### UA #### [place] [address] USAHemoglobin (Bld) [Mass/Vol]11.4 g/dLLow13.0-17.0The [facility] Physician GroupComment on above:Performed By: #### UA #### [place] [address] USALymphocytes (Bld) [#/Vol]0.8 10*3/uLLow1.00-4.8The [facility] Physician GroupComment on above:Performed By: #### UA #### [place] [address] USALymphocytes/100 WBC (Bld)10.5 %Normal.The [facility] Physician GroupComment on above:Performed By: #### UA #### [place] [address] USAMCH (RBC) [Entitic mass]31.0 exZrbntl61.5-35.2The [facility] Physician GroupComment on above:Performed By: #### UA #### [place] [address] USAMCV (RBC) [Entitic vol]92.9 sHWhwhrx06.5-101The [facility] Physician GroupComment on above:Performed By: #### UA #### [place] [address] USAMean Corpuscular HGB Conc33.4 g/rWUrjune28.5-35.6The [facility] Physician GroupComment on above:Performed By: #### UA #### [place] [address] USAMonocytes (Bld) [#/Vol]0.8 10*3/uLNormal0.0-0.8The [facility] Physician GroupComment on above:Performed By: #### UA #### [place] [address] USAMonocytes/100 WBC (Bld)23.19 %High0.00-20.00The [facility] Physician GroupComment on above:Result Comment: For adults in ED, MDW > 20.0 may be associated with a higher risk of sepsis during the first 12 hrs of hospital admissionPerformed By: #### UA #### [place] [address] USAMonocytes/100 WBC (Bld)11.3 %Normal.The [facility] Physician GroupComment on above:Performed By: #### UA #### [place] [address] USANeutrophils (Bld) [#/Vol]5.7 10*3/uLNormal1.8-7.7The [facility] Physician GroupComment on above:Performed By: #### UA #### [place] [address] USANeutrophils/100 WBC (Bld)77.0 %Normal.The [facility] Physician GroupComment on above:Performed By: #### UA #### [place] [address] USANRBC%0.2 /100{WBC}Normal0-0.5The [facility] Comment on above:Performed By: #### UA #### [place] [address] USAPlatelet mean volume (Bld) [Entitic vol]8.1 fLNormal 6.6-10.1The [facility] Physician GroupComment on above:Performed By: #### UA #### [place] [address] USAPlatelets (Bld) [#/Vol]234 10*3/hBSfchqm565-665Qwn [facility] Physician GroupComment on above:Performed By: #### UA #### [place] [address] USARBC (Bld) [#/Vol]3.68 10*6/uLLow3.90-5.60The [facility] Physician GroupComment on above:Performed By: #### UA #### [place] [address] USAWBC (Bld) [#/Vol]7.4 10*3/uLNormal4.1-10.5The [facility] Physician GroupComment on above:Performed By: #### UA #### [place] [address] USAComprehensive Metabolic Panelon 28-33-3103Jilepgw [Mass/Vol]3.4 g/dLLow3.5-5.7The [facility] Physician GroupComment on above: Performed By: #### ESR #### [facility] [address] [place] [address] USAAlbumin/Globulin [Mass ratio]1.4 {ratio}NormalThe [facility] Physician GroupComment on above:Performed By: #### ESR #### [place] [address] USAALP [Catalytic activity/Vol]66 U/WMfuplz41-720Jae [facility] Physician GroupComment on above:Performed By: #### ESR #### [place] [address] USAALT [Catalytic activity/Vol]17 U/LNormal7-52The [facility] Physician GroupComment on above:Performed By: #### ESR #### [place] [address] USAAnion gap [Moles/Vol]10.3 mmol/LNormal6.0-15.0The [facility] Physician GroupComment on above:Performed By: #### ESR #### [facility] [address] [place] [address] USAAST [Catalytic activity/Vol]18 U/IIhcmwg09-92Dwt [facility] Physician GroupComment on above:Performed By: #### ESR #### [facility] [address] [place] [address] USABilirubin [Mass/Vol]0.6 mg/dLNormal0.3-1.0The [facility] Physician GroupComment on above:Performed By: #### ESR #### [facility] [address] [place] [address] USACalcium [Mass/Vol]8.4 mg/dLLow8.6-10.3The [facility] Physician GroupComment on above:Performed By: #### ESR #### [place] [address] USAChloride [Moles/Vol]104 mmol/DLwaexd78-751Hhb [facility] Physician GroupComment on above:Performed By: #### ESR #### [facility] [address] [place] [address] USACO2 [Moles/Vol]25.4 mmol/NYyoqap19.0-31.0The [facility] Physician GroupComment on above:Performed By: #### ESR #### [facility] [address] [place] [address] USACreatinine [Mass/Vol]0.85 mg/dLNormal0.70-1.30The [facility] Physician GroupComment on above:Performed By: #### ESR #### [place] [address] USACreatinine Clr Calc Lywplevy05.71NormalThe [facility] Physician GroupComment on above:Result Comment: PERFORMED BY: [place] [address] PATHOLOGIST SUPERVISOR MOLDING HEBER SHANNON M.D.Performed By: #### ESR #### [place] [address] USAGFR/1.73 sq M.predicted MDRD (S/P/Bld) [Vol rate/Area] mL/min/{1.73_m2}NormalThe [facility] Physician GroupComment on above:Performed By: #### ESR #### [facility] [address] [place] [address] USAGlobulin (S) [Mass/Vol]2.5 g/dLNormalThe [facility] Physician GroupComment on above:Performed By: #### ESR #### [place] [address] USAGlucose [Mass/Vol]106 mg/pHEoek64-203Flk [facility] Physician GroupComment on above:Result Comment: Random Glucose Reference Range is dependent on time and content of last meal. Glucose of more than 200 mg/dL in a nonstressed, ambulatory subject supports the diagnosis of Diabetes Mellitus. ADA recommended reference rangePerformed By: #### ESR #### [place] [address] USAPotassium [Moles/Vol]3.7 mmol/LNormal3.5-5.1The [facility] Physician GroupComment on above:Performed By: #### ESR #### [place] [address] USAProtein [Mass/Vol]5.9 g/dLLow6.4-8.9The [facility] Physician GroupComment on above:Performed By: #### ESR #### [place] [address] USASodium [Moles/Vol]136 mmol/UNkgysc514-860Qtg [facility] Physician GroupComment on above:Performed By: #### ESR #### [place] [address] USAUrea nitrogen [Mass/Vol]16 mg/dLNormal7-25The [facility] Physician GroupComment on above:Performed By: #### ESR #### [place] [address] USACreatinine [Mass/volume] in Serum or PlasmaOrdered By: Louie Marrero on 12-94-6590Hxidkoqezc [Mass/Vol]Creatinine [Mass/volume] in Serum or Plasma0.70-1.30Prom[facility] Flower HospitalECG 12 lead ECGon 69-46-9102XBQ 12 [place] [address] Electrocardiograph Report Signed Patient: Jeremie Bennett MR#: [id number] 669 : 1940 Acct:[id number] Age/Sex: 83 / M ADM Date: 08/20/24 Loc: ER Room: Type: [facility] ER Attending Dr: Ordering Provider: Louie [...] ECGs available Confirmed by LOUIE MARRERO DO ([id number]) on 08/20/2024 7:55:25 PM Referred By: Electronically Signed By: LOUIE MARRERO DO Transcribed By: MUS Signed By Louie Marrero DO 08/[address] [place] [address] Physician GroupEosinophils Auto (Bld) [#/Vol]Ordered By: Louie Marrero on 64-68-3781Sfngbrqerkv (Bld) [#/Vol]Automated eosinophil count0.0-0.45Prom[facility] Flower HospitalEosinophils/100 WBC Auto (Bld) Ordered By: Louie Marrero on 55-55-6285Oewoqqjsjjo/100 WBC (Bld)Automated eosinophil %.[facility] HospitalErythrocyte Sedimentation Rateon 42-67-8641BJA (Bld) [Velocity]42 mm/hHigh0-19The [facility] Comment on above:Result Comment: PERFORMED BY: [place] [address] PATHOLOGIST SUPERVISOR MOLDING HEBER SHANNON M.D.Performed By: #### ESR #### [place] [address] USAErythrocyte distribution width Auto (RBC) [Ratio]Ordered By: Louie Marrero on 53-48-9234Asexfywrwcv distribution width (RBC) [Ratio] Erythrocyte distribution width [Ratio] by Automated count12.0-14.8[facility]lower HospitalErythrocyte sedimentation rate by Photometric method Ordered By: Jaiden Nance on 69-88-1986ZAV Photometric method (Bld) [Velocity] Erythrocyte sedimentation rate by Photometric methodHigh0-19Prom[facility] HospitalGlobulin Calc (S) [Mass/Vol]Ordered By: Louie Marrero on 20-38-9707Wfrnlrfx (S) [Mass/Vol]Serum globulin measurement by calculation (mass/volume)[facility] HospitalGlucose [Mass/volume] in Serum or PlasmaOrdered By: Louie Marrero on 69-37-4276Lpgrydt [Mass/Vol]Glucose [Mass/volume] in Serum or TyhsifFbtj42-678QtkesccbmPromedica Flower Hospital Comment on above:ADA recommended reference rangeRandom Glucose Reference Range is dependent on time and content of last meal. Glucose of more than 200 mg/dL in a nonstressed, ambulatory subject supports the diagnosisof Diabetes Mellitus. Glucose [Mass/volume] in Urine by Test stripOrdered By: Louie Marrero on 12-07-8280Muqpttm Test strip (U) [Mass/Vol]Glucose [Mass/volume] in Urine by Test stripNormalPromedica Flower HospitalHematocrit Auto (Bld) [Volume fraction]Ordered By: Louie Marrero on 92-79-3942Rydywqsdrx (Bld) [Volume fraction]Hematocrit [Volume Fraction] of Blood by Automated asuzxXrv32.8-50.0 [facility] HospitalHemoglobin Test strip Ql (U)Ordered By: Louie Marrero on 17-45-8182Wylvnblxxi Ql (U)Hemoglobin [Presence] in Urine by Test stripNegativePromedica Flower HospitalHemoglobin [Mass/volume] in Blood Ordered By: Louie Marrero 10-93-7006Rncgtuorjq (Bld) [Mass/Vol]Hemoglobin [Mass/volume] in KbwaoNov68.0-17.0Prom[facility] HospitalINR in Platelet poor plasma by Coagulation assayOrdered By: Louie Marrero on 08-20-2024 INR Coag (PPP) [Relative time]INR in Platelet poor plasma by Coagulation assay [facility] Flower HospitalComment on above:INR Therapeutic Range A) Pre- and Peroperative OAT started two weeks before surgery. NOT HIP SURGERY: 1.5 - 2.5 HIP SURGERY: 2 - 3B) Primary and secondary prevention of venous THROMBOSIS: 2 - 3C) Active venous thrombosis, pulmonary embolismand prevention of recurrent venous thrombosis: 2 - 3D) Prevention of arterial thromboembolismincluding patients with mechanical heart valves: 3 - 4.5Ketones Test strip Ql (U)Ordered By: Louie Marrero on 43-94-2159Xyeygjr Ql (U)Ketones [Presence] in Urine by Test stripHighNegativePromedica Flower HospitalLaboratory - Microbiology and Antimicrobial susceptibilityOrdered By: Louie Marrero on 20-10-3717Ktuddxrs identified Cx Nom (Bld)NO GROWTH 5 DAYSPromedica Flower HospitalBacteria identified Cx Nom (Bld)NO GROWTH 5 DAYSPromedica Flower HospitalLactate [Moles/volume] in Serum or PlasmaOrdered By: Louie Marrero on 54-09-8066Uspneuj [Moles/Vol]Lactate [Moles/volume] in Serum or Plasma0.5-1.9[facility] HospitalComment on above:Lactic Acid reference range has been updated to 0.5 1.9 mmol/L and the critical range of 2.0 or greater.Lactic Acidon 08-20-2024 Lactate [Moles/Vol]0.8 mmol/LNormal0.5-1.9[facility] Physician GroupComment on above:Result Comment: Lactic Acid reference range has been updated to 0.5 ? 1.9 mmol/L and the critical range of 2.0 or greater. PERFORMED BY: [place] [address] PATHOLOGIST SUPERVISOR MOLDING HEBER SHANNON M.D.Performed By: #### UA #### [place] [address] USALeukocyte esterase [Presence] in Urine by Test strip Ordered By: Louie Marrero on 64-67-1500Mxwkvaxod esterase Test strip Ql (U) Leukocyte esterase [Presence] in Urine by Test stripNegativePromedica Flower HospitalLeukocytes [#/volume] corrected for nucleated erythrocytes in Blood by Automated counOrdered By: Louie Marrero on 36-33-3175CQB corrected for nucl RBC Auto (Bld) [#/Vol]Leukocytes [#/volume] corrected for nucleated erythrocytes in Blood by Automated coun4.1-10.5FFayette [facility] Hospital Lymphocytes Auto (Bld) [#/Vol]Ordered By: Louie Marrero on 66-90-5050Aldlnjdmkud (Bld) [#/Vol]Lymphocytes [#/volume] in Blood by Automated countLow1.00-4.8 [facility] HospitalLymphocytes/100 WBC Auto (Bld)Ordered By: Louie Marrero on 90-43-0846Qlvbfwcmlrs/100 WBC (Bld)Lymphocytes/100 leukocytes in Blood by Automated count.[facility] HealthH Auto (RBC) [Entitic mass]Ordered By: Louie Marrero on 71-66-7437AEP (RBC) [Entitic mass]MCH [Entitic mass] by Automated count27.5-35.2FFayette County Memorial HospitalMCHC Auto (RBC) [Mass/Vol]Ordered By: Louie Marrero on 54-95-7324MJKT (RBC) [Mass/Vol]MCHC [Mass/volume] by Automated count32.5-35.6FFayette County Memorial HospitalMCV Auto (RBC) [Entitic vol]Ordered By: Louie Marrero on 14-45-8965EJO (RBC) [Entitic vol]MCV [Entitic volume] by Automated count83.5-101 [facility] HospitalMonocyte distribution width [Entitic volume] in Blood by AutomatedOrdered By: Louie Marrero on 09-46-3971Gntfdaxw distribution width Auto (Bld) [Entitic vol]Monocyte distribution width [Entitic volume] in Blood by AutomatedHigh0.00-20.00[facility] Flower HospitalComment on above:For adults in ED, MDW > 20.0 may be associated with a higher risk of sepsis during the first 12 hrs of hospital admissionMonocytes Auto (Bld) [#/Vol] Ordered By: Louie Marrero on 52-28-7392Tihwkcwan (Bld) [#/Vol]Automated blood monocyte count0.0-0.8[facility] HospitalMonocytes/100 WBC Auto (Bld)Ordered By: Louie Marrero on 65-14-1314Omkrdrjcp/100 WBC (Bld)Automated monocyte %.[facility] HospitalNeutrophils Auto (Bld) [#/Vol] Ordered By: Louie Marrero on 01-60-8889Fworcdqnzsn (Bld) [#/Vol]Neutrophils [#/volume] in Blood by Automated count1.8-7.7FFayette County Memorial Hospital Neutrophils/100 WBC Auto (Bld)Ordered By: Louie Marrero on 08-20-2024 Neutrophils/100 WBC (Bld)Automated neutrophil %.[facility] HospitalNitrite Test strip Ql (U)Ordered By: Louie Marrero on 05-50-4252Iefuiwr Ql (U)Nitrite [Presence] in Urine by Test stripNegKettering Health – Soin Medical CenterNo Panel InformationOrdered By: Louie Marrero on 65-74-9108Zpwvchzck GFR (CKD-EPI)> 60.0 mL/MinPromedica Flower HospitalPharmacy Creatinine Clearance (Chem58.71Prom[facility] HospitalNucleated erythrocytes [Presence] in Blood by Automated countOrdered By: Louie Marrero on 08-20-2024 Nucleated RBC Auto Ql (Bld)Nucleated erythrocytes [Presence] in Blood by Automated count0-0.5FFayette County Memorial HospitalPlatelet mean volume Auto (Bld) [Entitic vol]Ordered By: Louie Marrero on 13-49-0244Anlhzqrj mean volume (Bld) [Entitic vol]Platelet mean volume [Entitic volume] in Blood by Automated count6.6-10.1FFayette County Memorial HospitalPlatelets Auto (Bld) [#/Vol] Ordered By: Louie Marrero on 74-93-3492Mftsubart (Bld) [#/Vol]Platelets [#/volume] in Blood by Automated tsuwq568-364BlvruzwfsPromedica Flower Hospital Potassium [Moles/volume] in Serum or PlasmaOrdered By: Louie Marrero on 03-56-6885Gckysnyba [Moles/Vol]Potassium [Moles/volume] in Serum or Plasma 3.5-5.1FFayette County Memorial HospitalProtein Test strip (U) [Mass/Vol]Ordered By: Louie Marrero on 35-04-1115Psvolgo (U) [Mass/Vol]Protein [Mass/volume] in Urine by Test stripNegativePromedica Flower HospitalProtein [Mass/volume] in Serum or PlasmaOrdered By: Louie Marrero on 29-38-7065Dpelzpw [Mass/Vol]Protein [Mass/volume] in Serum or PlasmaLow6.4-8.9[facility] HospitalProthrombin Time INRon 80-35-9068NRH Coag (PPP) [Relative time]1.1 {INR}NormalThe [facility] Physician GroupComment on above:Result Comment: INR Therapeutic Range A) Pre- and [...] heart valves: 3 - 4.5 PERFORMED BY: [place] [address] PATHOLOGIST SUPERVISOR MOLDING HEBER SHANNON M.D.Performed By: #### ESR #### [facility] [address] [place], [place] [id number] USAPT Coag (PPP) [Time]12.9 sNormal9.0-12.9[facility] Physician [facility] Health CenterComment on above:Result Comment: A hematocrit value greater than 55% may lead to inaccurate results in coagulation testing. Patients having hematocrit values >55% require a special collection tube for coagulation studies. Please contact the laboratory at [phone] for redraw instructions.Performed By: #### ESR #### [facility] [address] [place], [place] [address] USAProthrombin time (PT)Ordered By: Louie Marrero on 79-01-7828WX Coag (PPP) [Time]Prothrombin time (PT)9.0-12.9[facility] HospitalComment on above:A hematocrit value greater than 55% may lead to inaccurate results in coagulation testing. Patientshaving hematocrit values >55% require a special collection tube for coagulation studies. Please contact the laboratory at [phone] for redraw instructions.RBC Auto (Bld) [#/Vol]Ordered By: Louie Marrero on 24-63-7277GBF (Bld) [#/Vol]Erythrocytes [#/volume] in Blood by Automated countLow3.90-5.60[facility] HospitalRespiratory (Upper) Panel, PCRon 76-48-4020Xtsmallihmp (Upper) Panel, PCRAdenovirus Not detected Bordetella parapertussis Not detected Chlamydia [...] COVID-19 Detected/Not Detected Not detected Blank Space FLUA TEST INCLUDES Influenza A tests for the following clinically FLUA TEST INCLUDES significant subtypes: FLUA TEST INCLUDES - Influenza A FLUA TEST INCLUDES - Influenza A H1 FLUA TEST INCLUDES - Influenza A H1 2009 FLUA TEST INCLUDES - Influenza A H3 Blank Space PERFORMED BY: [place] [address] PATHOLOGIST SUPERVISOR MOLDING HEBER SHANNON M.D.[facility] Physician GroupComment on above: Performed By: #### MG, SCAN CBC, CMP #### [facility] [address] [place] [address] USARespiratory pathogens DNA and RNA panel - Nasopharynx by MICHELLE with non-probe detectionOrdered By: Louie Marrero on 79-14-9424Ymlhitmkceo pathogens DNA and RNA panel MICHELLE+non-probe (Nph)Respiratory pathogens DNA and RNA panel - Nasopharynx by MICHELLE with non-probe detectionRegency Hospital Cleveland Easterum or plasma albumin/globulin mass ratioOrdered By: Louie Marrero on 01-91-4980Msgxzwb/Globulin [Mass ratio]Serum or plasma albumin/globulin mass ratioRegency Hospital Cleveland Easterum or plasma anion gap determination Ordered By: Louie Marrero on 49-24-5261Uodqv gap [Moles/Vol]Serum or plasma anion gap determination6.0-15.0Reg[facility] Cleveland Eastodium [Moles/volume] in Serum or PlasmaOrdered By: Louie Marrero on 29-73-1612Oryrbh [Moles/Vol]Sodium [Moles/volume] in Serum or Wwpohb086-017SkwjahqzwRegency Hospital Cleveland Eastpecific gravity Test strip (U) [Rel density]Ordered By: Louie Marrero on 01-88-8377Dibpwbfn gravity (U) [Rel density]Specific gravity of Urine by Test strip1.001-1.030[facility] HospitalTroponin I High Sensitivityon 21-30-8027Qzddtewh I High Bzvoxdkeldc93Osdjej7-64Vht [facility] Physician GroupComment on above:Result Comment: The Troponin units of report have been changed to meet the Chest Pain Accreditation requirement, element EC5.M1l2. Troponin units are changed from pg/ml to ng/L. Also, the decimal is removed and results are in whole numbers. PERFORMED BY: [place] [address] PATHOLOGIST SUPERVISOR MOLDING HEBER SHANNON M.D.Performed By: #### MG, SCAN CBC, CMP #### [place] [address] USATroponin I.cardiac [Mass/volume] in Serum or Plasma by Detection limit <= 0.01 ng/Ordered By: Louie Marrero on 54-96-9451Owwguggg I.cardiac DL <= 0.01 ng/mL [Mass/Vol]Troponin I.cardiac [Mass/volume] in Serum or Plasma by Detection limit <= 0.01 ng/0-20[facility] Comment on above:The Troponin units of report have been changed to meet the Chest Pain Accreditation requirement, element EC5.M1l2. Troponin units are changed from pg/ml to ng/L. Also, the decimal is removed and results are in whole numbers.Urea nitrogen [Mass/volume] in Serum or PlasmaOrdered By: Louie Marrero on 85-36-4816Wcja nitrogen [Mass/Vol]Urea nitrogen [Mass/volume] in Serum or Plasma12-08[facility] HospitalUrinalysison 08-20-2024 Appearance (U)ClearNormalClearAdventhealth Deltona Er Physician GroupComment on above: Order Comment: Name Collection Type:: Straight CatheterPerformed By: #### MG, SCAN CBC, CMP #### [facility] [address] [place] [id number] USABilirubin,UrineNegativeNormalNegativeAdventhealth Deltona Er Physician GroupComment on above:Order Comment: Name Collection Type:: Straight CatheterPerformed By: #### MG, SCAN CBC, CMP #### [facility] [address] [place] [address] USAColor (U)Light-YellowNormalYellowAdventhealth Deltona Er Physician GroupComment on above:Order Comment: Name Collection Type:: Straight Catheter Performed By: #### MG, SCAN CBC, CMP #### [facility] [address] [place] [address] USAGlucose Ql (U)NormalNormalNormalThSt. Luke[facility] Physician GroupComment on above:Order Comment: Name Collection Type:: Straight Catheter Performed By: #### MG, SCAN CBC, CMP #### [facility] [address] [place] [address] USAKetones Ql (U)1+HighNegativeAdventhealth Deltona Er Physician Group Comment on above:Order Comment: Name Collection Type:: Straight Catheter Performed By: #### MG, SCAN CBC, CMP #### [facility] [address] [place] [address] USALeukocyte esterase Test strip Ql (U)NegativeNormalNegative [facility] Physician GroupComment on above:Order Comment: Name Collection Type:: Straight CatheterPerformed By: #### MG, SCAN CBC, CMP #### [facility] [address] [place] [address] USANitrite,UrineNegativeNormalNegativeAdventhealth Deltona Er Physician GroupComment on above:Order Comment: Name Collection Type:: Straight Catheter Performed By: #### MG, SCAN CBC, CMP #### [place] [address] USAOccult Blood,UrineNegativeNormalNegativeThe [facility] Physician GroupComment on above:Order Comment: Name Collection Type:: Straight CatheterResult Comment: PERFORMED BY: [place] [address] PATHOLOGIST SUPERVISOR MOLDING HEBER SHANNON M.D.Performed By: #### MG, SCAN CBC, CMP #### [place] [address] USApH (U)5.5 [pH]Normal5.0-9.0[facility] Comment on above:Order Comment: Name Collection Type:: Straight Catheter Performed By: #### MG, SCAN CBC, CMP #### [place] [address] USAProtein,UrineNegativeNormalNegativeThe [facility] Physician GroupComment on above:Order Comment: Name Collection Type:: Straight Catheter Performed By: #### MG, SCAN CBC, CMP #### [place] [address] USASpecificy Anton,Urine1.913Mqydhl9.001-1.030The [facility] Physician GroupComment on above:Order Comment: Name Collection Type:: Straight CatheterPerformed By: #### MG, SCAN CBC, CMP #### [place] [address] USAUrobilinogen,UrineNormalNormalNormalThe [facility] Physician GroupComment on above:Order Comment: Name Collection Type:: Straight CatheterPerformed By: #### MG, SCAN CBC, CMP #### [place] [address] USAUrobilinogen Test strip (U) [Mass/Vol]Ordered By: Louie Marrero on 15-61-0206Xxbzgrpmhcyx (U) [Mass/Vol]Urobilinogen [Mass/volume] in Urine by Test stripNoSelect Medical OhioHealth Rehabilitation HospitalWBC Auto (Bld) [#/Vol] Ordered By: Louie Marrero on 00-20-5790YIN (Bld) [#/Vol]Leukocytes [#/volume] in Blood by Automated count4.1-10.5FFayette County Memorial HospitalX-ray report Ordered By: Rah Benavides on 86-58-6506Sdsqn reportFIRBETHESDA NORTH [facility]ITAL Main [place] [id number] XRay Report Signed Patient: Jeremie Bennett MR#: [id number] : 1940 Acct:[id number] Age/Sex: 83 / M ADM Date: 5 Loc: ER Room: Type: [facility] ER Attending Dr: Copies to: Louie Marrero DO~ Ordering Provider: Luoie Marrero DO Date of Service: 08/20/24 XR/XR chest 1V portable: Fever SINGLE VIEW CHEST CLINICAL HISTORY: Fever, recently finished chemotherapy, cough for 3 weeks COMPARISON: 07/17/2024 FINDINGS: Left-sided pacemaker device. Right-sided Gukcqq-c-Ufxx. Posterior changes fromprior ACDF. Mildly enlarged cardiac silhouette. Minimal hazy bibasilar opacities similar prior exam. No effusion or pneumothorax. XR/XR chest 1V portable IMPRESSION: MILD BIBASILAR AIRSPACE OPACITIES, THESE APPEAR SIMILAR PRIOR EXAM. Impression dictated by: Rah Benavides M.D.08/20/2024 6:32 PM Dictation Location: [place] [address] Transcribed By: PERLA 08/20/241831 Dictated By: Rah Benavides MD 08/20/241830 Signed By: 08/20/24 183 [facility] Work Phone: XR chest 1V portableon 13-66-0995UF chest 1V portable [facility] Main [address] [address] XRay Report Signed Patient: Jeremie Bennett MR#: [id number] : 1940 Acct:[id number] Age/Sex: 83 / M ADM Date: 08/20/24 Loc: ER Room: Type: [facility] ER Attending Dr: Copies to: Louie Marrero DO Ordering Provider: Louie Marrero DO Date of Service: 08/20/24 XR/XR chest 1V portable: Fever SINGLE VIEW CHEST CLINICAL HISTORY: Fever, recently finished chemotherapy, cough for 3 weeks COMPARISON: 07/17/2024 FINDINGS: Left-sided pacemaker device. Right-sided Rsbkdh-x-Qnbl. Posterior changes from prior ACDF. Mildly enlarged cardiac silhouette. Minimal hazy bibasilar opacities similar prior exam. No effusion or pneumothorax. XR/XR chest 1V portable IMPRESSION: MILD BIBASILAR AIRSPACE OPACITIES, THESE APPEAR SIMILAR PRIOR EXAM. Impression dictated by: Rah Benavides M.D.08/20/2024 6:32 PM Dictation Location: [place] [address] Transcribed By: [facility] 08/20/241831 Dictated By: Rah Benavides MD 08/20/241830 Signed By: 08/20/241831[facility] Physician GrouppH Test strip (U)Ordered By: Louie Marrero on 73-14-9598jL (U)pH of Urine by Test strip5.0-9.0[facility] HospitalAlanine aminotransferase [Enzymatic activity/volume] in Serum or PlasmaOrdered By: Talib Faustin on 87-70-3056TOD [Catalytic activity/Vol]Alanine aminotransferase [Enzymatic activity/volume] in Serum or Plasma7-52[facility] HospitalAlbumin [Mass/volume] in Serum or Plasma by Bromocresol green (BCG) dye binding methoOrdered By: Talib Faustin on 61-91-0682Dbhvkpl BCG dye [Mass/Vol]Albumin [Mass/volume] in Serum or Plasma by Bromocresol green (BCG) dye binding metho3.5-5.7FFayette County Memorial HospitalAlkaline phosphatase [Enzymatic activity/volume] in Serum or PlasmaOrdered By: Talib Faustin on 19-70-9601IHH [Catalytic activity/Vol]Alkaline phosphatase [Enzymatic activity/volume] in Serum or Wfjxge50-681VagamfussPromedica Flower HospitalAspartate aminotransferase [Enzymatic activity/volume] in Serum or Plasma Ordered By: Talib Faustin on 84-01-7541FKW [Catalytic activity/Vol]Aspartate aminotransferase [Enzymatic activity/volume] in Serum or Cxzgiy67-63EszuvvkotPromedica Flower HospitalBasophils Auto (Bld) [#/Vol]Ordered By: Talib Faustin on 21-89-7242Bheoeicdg (Bld) [#/Vol]Automated basophil count0.0-0.2FFayette County Memorial HospitalBasophils/100 WBC Auto (Bld)Ordered By: rick Faustin on 56-21-7029Ypznlcnfp/100 WBC (Bld)Automated basophil %.[facility] HospitalBilirubin.total [Mass/volume] in Serum or PlasmaOrdered By: Talib Faustin on 20-92-9596Vgvwhdoda [Mass/Vol]Bilirubin.total [Mass/volume] in Serum or Plasma0.3-1.0[facility] HospitalCalcium [Mass/volume] in Serum or PlasmaOrdered By: rick Faustin on 98-12-6260Vztrkgd [Mass/Vol]Calcium [Mass/volume] in Serum or Plasma8.6-10.3FFayette County Memorial HospitalCarbon dioxide, total [Moles/volume] in Serum or PlasmaOrdered By: rick Faustin on 56-29-3436MR5 [Moles/Vol]Carbon dioxide, total [Moles/volume] in Serum or Plasma 21.0-31.0[facility] HospitalChloride [Moles/volume] in Serum or PlasmaOrdered By: rick Faustin on 14-81-2450Jjqqsuxe [Moles/Vol]Chloride [Moles/volume] in Serum or Ypfhde52-990BrykadkznPromedica Flower HospitalComplete Blood Count Auto Diffon 92-55-9063Fkwdkuebt (Bld) [#/Vol]0.1 10*3/uLNormal 0.0-0.2The [facility] Physician GroupComment on above:Result Comment: PERFORMED BY: [place] [address] [place] [address] PATHOLOGIST SUPERVISOR MOLDING MOHAMED M EL-FAKHARANY M.D.Performed By: #### ESR #### [facility] [address] [place] [address] USABasophils/100 WBC (Bld)1.1 %Normal.The [facility] Physician GroupComment on above:Performed By: #### ESR #### [facility] [address] [place] [address] USAEosinophils (Bld) [#/Vol]0.1 10*3/uLNormal0.0-0.45The [facility] Physician GroupComment on above:Performed By: #### ESR #### [facility] [address] [place] [address] USAEosinophils/100 WBC (Bld)0.7 %Normal.The [facility] Physician GroupComment on above:Performed By: #### ESR #### [place] [address] USAErythrocyte distribution width (RBC) [Ratio]15.2 %High 12.0-14.8The [facility] Physician GroupComment on above:Performed By: #### ESR #### [place] [address] USAHematocrit (Bld) [Volume fraction]34.8 %Low38.8-50.0The [facility] Physician GroupComment on above:Performed By: #### ESR #### [place] [id number] USAHemoglobin (Bld) [Mass/Vol]11.7 g/dLLow13.0-17.0The [facility] Physician GroupComment on above:Performed By: #### ESR #### [facility] [address] [place] [id number] USALymphocytes (Bld) [#/Vol]0.6 10*3/uLLow1.00-4.8The [facility] Physician GroupComment on above:Performed By: #### ESR #### [facility] [address] [place] [address] USALymphocytes/100 WBC (Bld)6.4 %Normal.The [facility] Physician GroupComment on above:Performed By: #### ESR #### [facility] [address] [place] [address] USAH (RBC) [Entitic mass]30.8 pbFotoji31.5-35.2The [facility] Physician GroupComment on above:Performed By: #### ESR #### [facility] [address] [place] [address] USAMCV (RBC) [Entitic vol]91.9 uSQxfnnj44.5-101The [facility] Physician GroupComment on above:Performed By: #### ESR #### [facility] [address] [place] [address] USAMean Corpuscular HGB Conc33.5 g/lEUnqzyt32.5-35.6The [facility] Physician GroupComment on above:Performed By: #### ESR #### [place] [address] USAMonocytes (Bld) [#/Vol]1.1 10*3/uLHigh0.0-0.8The [facility] Physician GroupComment on above:Performed By: #### ESR #### [place] [address] USAMonocytes/100 WBC (Bld)12.6 %Normal.The [facility] Physician GroupComment on above:Performed By: #### ESR #### [place] [address] USANeutrophils (Bld) [#/Vol]7.2 10*3/uLNormal1.8-7.7The [facility] Physician GroupComment on above:Performed By: #### ESR #### [place] [address] USANeutrophils/100 WBC (Bld)79.2 %Normal.The [facility] Physician GroupComment on above:Performed By: #### ESR #### [place] [address] USANRBC%0.1 /100{WBC}Normal0-0.5The [facility] Comment on above:Performed By: #### ESR #### [address] [place] [address] USAPlatelet mean volume (Bld) [Entitic vol]7.5 fLNormal 6.6-10.1The [facility] Physician GroupComment on above:Performed By: #### ESR #### [place] [address] USAPlatelets (Bld) [#/Vol]236 10*3/nWDfzkqu950-233Hjb [facility] Physician GroupComment on above:Performed By: #### ESR #### [place] [address] USARBC (Bld) [#/Vol]3.79 10*6/uLLow3.90-5.60The [facility] Physician GroupComment on above:Performed By: #### ESR #### [place] [address] USAWBC (Bld) [#/Vol]9.1 10*3/uLNormal4.1-10.5The [facility] Physician GroupComment on above:Performed By: #### ESR #### [place] [address] USAComprehensive Metabolic Panelon 51-11-8683Pkzvwhl [Mass/Vol]3.6 g/dLNormal3.5-5.7The [facility] Physician GroupComment on above: Performed By: #### ESR #### [place] [address] USAAlbumin/Globulin [Mass ratio]1.4 {ratio}NormalThe [facility] Physician GroupComment on above:Performed By: #### ESR #### [facility] [address] [place] [address] USAALP [Catalytic activity/Vol]73 U/IEjasxp61-251Biw [facility] Physician GroupComment on above:Performed By: #### ESR #### [place] [address] USAALT [Catalytic activity/Vol]14 U/LNormal7-52The [facility] Physician GroupComment on above:Performed By: #### ESR #### [place] [address] USAAnion gap [Moles/Vol]10.5 mmol/LNormal6.0-15.0The [facility] Physician GroupComment on above:Performed By: #### ESR #### [place] [address] USAAST [Catalytic activity/Vol]13 U/SItvisy14-20Cxe [facility] Physician GroupComment on above:Performed By: #### ESR #### [place] [address] USABilirubin [Mass/Vol]0.4 mg/dLNormal0.3-1.0The [facility] Physician GroupComment on above:Performed By: #### ESR #### [place] [address] USACalcium [Mass/Vol]8.6 mg/dLNormal8.6-10.3The [facility] Physician GroupComment on above:Performed By: #### ESR #### [place] [address] USAChloride [Moles/Vol]107 mmol/FVrramn51-541Jml [facility] Physician GroupComment on above:Performed By: #### ESR #### [place] [address] USACO2 [Moles/Vol]24.4 mmol/YChepoi05.0-31.0The [facility] Physician GroupComment on above:Performed By: #### ESR #### [place] [address] USACreatinine [Mass/Vol]0.83 mg/dLNormal0.70-1.30The [facility] Physician GroupComment on above:Performed By: #### ESR #### [place] [address] USACreatinine Clr Calc Nlvbdzfz55.79NormalThe [facility] Physician GroupComment on above:Result Comment: PERFORMED BY: [place] [address] PATHOLOGIST SUPERVISOR MOLDING MOHAMED M EL-FAKHARANY M.D.Performed By: #### ESR #### [facility] [address] [place] [address] USAGFR/1.73 sq M.predicted MDRD (S/P/Bld) [Vol rate/Area] mL/min/{1.73_m2}NormalThe [facility] Physician GroupComment on above:Performed By: #### ESR #### [facility] [address] [place] [address] USAGlobulin (S) [Mass/Vol]2.6 g/dLNormalThe [facility] Physician GroupComment on above:Performed By: #### ESR #### [place] [address] USAGlucose [Mass/Vol]119 mg/qWUsqp52-359Syb [facility] Physician GroupComment on above:Result Comment: Random Glucose Reference Range is dependent on time and content of last meal. Glucose of more than 200 mg/dL in a nonstressed, ambulatory subject supports the diagnosis of Diabetes Mellitus. ADA recommended reference rangePerformed By: #### ESR #### [place] [address] USAPotassium [Moles/Vol]3.9 mmol/LNormal3.5-5.1The [facility] Physician GroupComment on above:Performed By: #### ESR #### [place] [address] USAProtein [Mass/Vol]6.2 g/dLLow6.4-8.9The [facility] Physician GroupComment on above:Performed By: #### ESR #### [place] [address] USASodium [Moles/Vol]138 mmol/WAcytvp399-611Kir [facility] Physician GroupComment on above:Performed By: #### ESR #### [place] [address] USAUrea nitrogen [Mass/Vol]19 mg/dLNormal7-25The [facility] Physician GroupComment on above:Performed By: #### ESR #### [place] [address] USACreatinine [Mass/volume] in Serum or PlasmaOrdered By: rick Faustin on 90-33-6462Crlpoumdeq [Mass/Vol]Creatinine [Mass/volume] in Serum or Plasma0.70-1.30[facility] HospitalEosinophils Auto (Bld) [#/Vol]Ordered By: rick Faustin on 82-75-8512Bbudphekikw (Bld) [#/Vol] Automated eosinophil count0.0-0.45[facility] Eosinophils/100 WBC Auto (Bld)Ordered By: rick Faustin on 08-16-2024 Eosinophils/100 WBC (Bld)Automated eosinophil %.[facility] HospitalErythrocyte distribution width Auto (RBC) [Ratio]Ordered By: Talib Hargrove on 83-88-8790Xzjtvtyniwo distribution width (RBC) [Ratio]Erythrocyte distribution width [Ratio] by Automated jutwuLkgg73.0-14.8[facility] HospitalGlobulin Calc (S) [Mass/Vol]Ordered By: rick Faustin on 85-11-1928Uvbjweqp (S) [Mass/Vol]Serum globulin measurement by calculation (mass/volume)[facility] HospitalGlucose [Mass/volume] in Serum or PlasmaOrdered By: rick Faustin on 04-14-7252Wcyboev [Mass/Vol]Glucose [Mass/volume] in Serum or PzyizeLynt07-340RqixifaowPromedica Flower Hospital Comment on above:ADA recommended reference rangeRandom Glucose Reference Range is dependent on time and content of last meal. Glucose of more than 200 mg/dL in a nonstressed, ambulatory subject supports the diagnosisof Diabetes Mellitus. Hematocrit Auto (Bld) [Volume fraction]Ordered By: Talib Faustin on 08-16-2024 Hematocrit (Bld) [Volume fraction]Hematocrit [Volume Fraction] of Blood by Automated lzncqZpb18.8-50.0[facility] HospitalHemoglobin [Mass/volume] in BloodOrdered By: rick Faustin on 50-80-9874Houpnospuz (Bld) [Mass/Vol]Hemoglobin [Mass/volume] in TifjqSnq50.0-17.0[facility] HospitalLeukocytes [#/volume] corrected for nucleated erythrocytes in Blood by Automated counOrdered By: Talib Faustin on 76-10-0263NUM corrected for nucl RBC Auto (Bld) [#/Vol]Leukocytes [#/volume] corrected for nucleated erythrocytes in Blood by Automated coun4.1-10.5FFayette [facility] Hospital Lymphocytes Auto (Bld) [#/Vol]Ordered By: Talib Faustin on 08-16-2024 Lymphocytes (Bld) [#/Vol]Lymphocytes [#/volume] in Blood by Automated countLow 1.00-4.8[facility] HospitalLymphocytes/100 WBC Auto (Bld)Ordered By: rick Faustin on 98-58-7320Lzyqbfgzghh/100 WBC (Bld)Lymphocytes/100 leukocytes in Blood by Automated count.[facility] Auto (RBC) [Entitic mass]Ordered By: Talib Faustin on 81-53-9707XYB (RBC) [Entitic mass]MCH [Entitic mass] by Automated count27.5-35.2FFayette County Memorial HospitalMCHC Auto (RBC) [Mass/Vol]Ordered By: Talib Faustin on 69-51-7818QYRI (RBC) [Mass/Vol]MCHC [Mass/volume] by Automated count32.5-35.6FFayette County Memorial HospitalMCV Auto (RBC) [Entitic vol]Ordered By: Talib Faustin on 56-09-1372ACD (RBC) [Entitic vol]MCV [Entitic volume] by Automated count83.5-101 [facility] HospitalMonocytes Auto (Bld) [#/Vol]Ordered By: rick Hargrove on 24-84-9657Uhrlytktc (Bld) [#/Vol]Automated blood monocyte countHigh 0.0-0.8[facility] HospitalMonocytes/100 WBC Auto (Bld)Ordered By: Talib Faustin on 60-62-9360Nfvevyynf/100 WBC (Bld)Automated monocyte %. [facility] HospitalNeutrophils Auto (Bld) [#/Vol]Ordered By: Talib Faustin on 40-56-6699Antwplpimop (Bld) [#/Vol]Neutrophils [#/volume] in Blood by Automated count1.8-7.7FFayette County Memorial HospitalNeutrophils/100 WBC Auto (Bld)Ordered By: Talib Faustin on 54-22-7415Hwxchbjryts/100 WBC (Bld) Automated neutrophil %.[facility] HospitalNo Panel Information Ordered By: Talib Faustin on 26-11-1297Gpalytpxi GFR (CKD-EPI)> 60.0 mL/Min [facility] HospitalPharmacy Creatinine Clearance (Chem59.79 [facility] HospitalNucleated erythrocytes [Presence] in Blood by Automated countOrdered By: Talib Faustin on 56-09-4142Urmbmvcmi RBC Auto Ql (Bld)Nucleated erythrocytes [Presence] in Blood by Automated count0-0.5FFayette County Memorial HospitalPlatelet mean volume Auto (Bld) [Entitic vol]Ordered By: Talib Faustin on 97-89-7847Ciulvrqk mean volume (Bld) [Entitic vol]Platelet mean volume [Entitic volume] in Blood by Automated count6.6-10.1FFayette County Memorial HospitalPlatelets Auto (Bld) [#/Vol]Ordered By: Talib Faustin on 75-52-0284Ggtzokbft (Bld) [#/Vol]Platelets [#/volume] in Blood by Automated -529XyzyxklvuPromedica Flower HospitalPotassium [Moles/volume] in Serum or PlasmaOrdered By: Talib Faustin on 32-79-5515Isadvmiou [Moles/Vol]Potassium [Moles/volume] in Serum or Plasma3.5-5.1FFayette County Memorial HospitalProtein [Mass/volume] in Serum or PlasmaOrdered By: Talib Faustin on 02-14-3562Vzuhjvo [Mass/Vol]Protein [Mass/volume] in Serum or PlasmaLow6.4-8.9[facility] HospitalRBC Auto (Bld) [#/Vol]Ordered By: Talib Faustin on 11-54-9044WBE (Bld) [#/Vol]Erythrocytes [#/volume] in Blood by Automated countLow3.90-5.60 [facility] Easterum or plasma albumin/globulin mass ratio Ordered By: Talib Faustin on 21-91-0774Sdnxbid/Globulin [Mass ratio]Serum or plasma albumin/globulin mass ratioRegency Hospital Cleveland Easterum or plasma anion gap determinationOrdered By: rick Faustin on 10-09-6059Ssspi gap [Moles/Vol]Serum or plasma anion gap determination6.0-15.0[facility] Eastodium [Moles/volume] in Serum or PlasmaOrdered By: rick Faustin on 67-25-7502Akczzy [Moles/Vol]Sodium [Moles/volume] in Serum or Uiexzl327-234 [facility] HospitalUrea nitrogen [Mass/volume] in Serum or Plasma Ordered By: rick Faustin on 31-13-4221Oqgg nitrogen [Mass/Vol]Urea nitrogen [Mass/volume] in Serum or Plasma7-25Prom[facility] HospitalWBC Auto (Bld) [#/Vol]Ordered By: Talib Faustin on 34-89-5055DQX (Bld) [#/Vol]Leukocytes [#/volume] in Blood by Automated count4.1-10.5FFayette County Memorial Hospital Complete Blood Count Auto Diffon 33-78-7976Kfqyjyeyq (Bld) [#/Vol]0.0 10*3/uL Normal0.0-0.2The [facility] Physician GroupComment on above:Result Comment: PERFORMED BY: [place] [address] PATHOLOGIST SUPERVISOR MOLDING HEBER SHANNON M.D.Performed By: #### CMP, CBC #### [facility] [address] [place] [address] USABasophils/100 WBC (Bld)0.4 %Normal.The [facility] Physician GroupComment on above:Performed By: #### CMP, CBC #### [facility] [address] [place] [address] USAEosinophils (Bld) [#/Vol]0.0 10*3/uLNormal0.0-0.45The [facility] Physician GroupComment on above:Performed By: #### CMP, CBC #### [place] [address] USAEosinophils/100 WBC (Bld)0.5 %Normal.The [facility] Physician GroupComment on above:Performed By: #### CMP, CBC #### [place] [address] USAErythrocyte distribution width (RBC) [Ratio]14.7 %Normal 12.0-14.8The [facility] Physician GroupComment on above:Performed By: #### CMP, CBC #### [place] [address] USAHematocrit (Bld) [Volume fraction]36.9 %Low38.8-50.0The [facility] Physician GroupComment on above:Performed By: #### CMP, CBC #### [place] [address] USAHemoglobin (Bld) [Mass/Vol]12.4 g/dLLow13.0-17.0The [facility] Physician GroupComment on above:Performed By: #### CMP, CBC #### [place] [address] USALymphocytes (Bld) [#/Vol]0.6 10*3/uLLow1.00-4.8The [facility] Physician GroupComment on above:Performed By: #### CMP, CBC #### [place] [address] USALymphocytes/100 WBC (Bld)7.4 %Normal.The [facility] Physician GroupComment on above:Performed By: #### CMP, CBC #### [place] [address] USAMCH (RBC) [Entitic mass]30.9 bvVirhtj22.5-35.2The [facility] Physician GroupComment on above:Performed By: #### CMP, CBC #### [place] [address] USAMCV (RBC) [Entitic vol]92.2 sFFihqwo20.5-101The [facility] Physician GroupComment on above:Performed By: #### CMP, CBC #### [facility] [address] [place] [address] USAMean Corpuscular HGB Conc33.6 g/dVTsvolk78.5-35.6The [facility] Physician GroupComment on above:Performed By: #### CMP, CBC #### [place] [address] USAMonocytes (Bld) [#/Vol]0.8 10*3/uLNormal0.0-0.8The [facility] Physician GroupComment on above:Performed By: #### CMP, CBC #### [place] [address] USAMonocytes/100 WBC (Bld)8.9 %Normal.The [facility] Physician GroupComment on above:Performed By: #### CMP, CBC #### [place] [address] USANeutrophils (Bld) [#/Vol]7.2 10*3/uLNormal1.8-7.7The [facility] Physician GroupComment on above:Performed By: #### CMP, CBC #### [place] [address] USANeutrophils/100 WBC (Bld)82.8 %Normal.The [facility] Physician GroupComment on above:Performed By: #### CMP, CBC #### [place] [address] USANRBC%0.1 /100{WBC}Normal0-0.5The [facility]ician Group Comment on above:Performed By: #### CMP, CBC #### [place] [address] USAPlatelet mean volume (Bld) [Entitic vol]7.9 fLNormal 6.6-10.1The [facility] Physician GroupComment on above:Performed By: #### CMP, CBC #### [place] [address] USAPlatelets (Bld) [#/Vol]245 10*3/uAOtblrc156-307Mjb [facility] Physician GroupComment on above:Performed By: #### CMP, CBC #### [place] [address] USARBC (Bld) [#/Vol]4.00 10*6/uLNormal3.90-5.60The [facility] Physician GroupComment on above:Performed By: #### CMP, CBC #### [place] [address] USAWBC (Bld) [#/Vol]8.7 10*3/uLNormal4.1-10.5The [facility] Physician GroupComment on above:Performed By: #### CMP, CBC #### [place] [address] USAComprehensive Metabolic Panelon 27-81-8480Qlxtvde [Mass/Vol]3.7 g/dLNormal3.5-5.7The [facility] Physician GroupComment on above: Performed By: #### CMP, CBC #### [place] [address] USAAlbumin/Globulin [Mass ratio]1.2 {ratio}NormalThe [facility] Physician GroupComment on above:Performed By: #### CMP, CBC #### [place] [address] USAALP [Catalytic activity/Vol]69 U/ASrlxgi15-675Jci [facility] Physician GroupComment on above:Performed By: #### CMP, CBC #### [place] [address] USAALT [Catalytic activity/Vol]18 U/LNormal7-52The [facility] Physician GroupComment on above:Performed By: #### CMP, CBC #### [place] [address] USAAnion gap [Moles/Vol]10.4 mmol/LNormal6.0-15.0The [facility] Physician GroupComment on above:Performed By: #### CMP, CBC #### [place] [address] USAAST [Catalytic activity/Vol]18 U/QPniqcf66-07Ioz [facility] Physician GroupComment on above:Performed By: #### CMP, CBC #### [place] [address] USABilirubin [Mass/Vol]0.4 mg/dLNormal0.3-1.0The [facility] Physician GroupComment on above:Performed By: #### CMP, CBC #### [place] [address] USACalcium [Mass/Vol]9.4 mg/dLNormal8.6-10.3The [facility] Physician GroupComment on above:Performed By: #### CMP, CBC #### [place] [address] USAChloride [Moles/Vol]102 mmol/GRnckpy87-561Dkc [facility] Physician GroupComment on above:Performed By: #### CMP, CBC #### [place] [address] USACO2 [Moles/Vol]26.5 mmol/JYfzgzi19.0-31.0The [facility] Physician GroupComment on above:Performed By: #### CMP, CBC #### [place] [address] USACreatinine [Mass/Vol]0.91 mg/dLNormal0.70-1.30The [facility] Physician GroupComment on above:Performed By: #### CMP, CBC #### [place] [address] USACreatinine Clr Calc Jdutumhp95.53NormalThe [facility] Physician GroupComment on above:Result Comment: PERFORMED BY: [place] [address] PATHOLOGIST SUPERVISOR MOLDING HEBER SHANNON M.D.Performed By: #### CMP, CBC #### [place] [address] USAGFR/1.73 sq M.predicted MDRD (S/P/Bld) [Vol rate/Area] mL/min/{1.73_m2}NormalThe [facility] Physician GroupComment on above:Performed By: #### CMP, CBC #### [facility] [address] [place] [address] USAGlobulin (S) [Mass/Vol]3.0 g/dLNormalThe [facility] Physician GroupComment on above:Performed By: #### CMP, CBC #### [facility] [address] [place] [address] USAGlucose [Mass/Vol]163 mg/zOAgcz17-434Uzl [facility] Physician GroupComment on above:Result Comment: Random Glucose Reference Range is dependent on time and content of last meal. Glucose of more than 200 mg/dL in a nonstressed, ambulatory subject supports the diagnosis of Diabetes Mellitus. ADA recommended reference rangePerformed By: #### CMP, CBC #### [place] [address] USAPotassium [Moles/Vol]3.9 mmol/LNormal3.5-5.1The [facility] Physician GroupComment on above:Performed By: #### CMP, CBC #### [place] [address] USAProtein [Mass/Vol]6.7 g/dLNormal6.4-8.9The [facility] Physician GroupComment on above:Performed By: #### CMP, CBC #### [place] [address] USASodium [Moles/Vol]135 mmol/VEci793-622Ggs [facility] Physician GroupComment on above:Performed By: #### CMP, CBC #### [place] [address] USAUrea nitrogen [Mass/Vol]31 mg/dLHigh7-25The [facility] Physician GroupComment on above:Performed By: #### CMP, CBC #### [place] [address] USAComplete Blood Count Auto Diffon 73-95-6174Ehcrcayka (Bld) [#/Vol]0.1 10*3/uLNormal0.0-0.2The [facility] Physician GroupComment on above: Result Comment: PERFORMED BY: [place] [address] PATHOLOGIST SUPERVISOR MOLDING HEBER SHANNON M.D.Performed By: #### MG, SCAN CBC, CMP #### [place] [address] USABasophils/100 WBC (Bld)1.0 %Normal.The [facility] Physician GroupComment on above:Performed By: #### MG, SCAN CBC, CMP #### [place] [address] USAEosinophils (Bld) [#/Vol]0.0 10*3/uLNormal0.0-0.45The [facility] Physician GroupComment on above:Performed By: #### MG, SCAN CBC, CMP #### [place] [address] USAEosinophils/100 WBC (Bld)0.6 %Normal.The [facility] Physician GroupComment on above:Performed By: #### MG, SCAN CBC, CMP #### [place] [address] USAErythrocyte distribution width (RBC) [Ratio]14.0 %Normal 12.0-14.8The [facility] Physician GroupComment on above:Performed By: #### MG, SCAN CBC, CMP #### [place] [address] USAHematocrit (Bld) [Volume fraction]35.5 %Low38.8-50.0The [facility] Physician GroupComment on above:Performed By: #### MG, SCAN CBC, CMP #### [place] [address] USAHemoglobin (Bld) [Mass/Vol]12.1 g/dLLow13.0-17.0The [facility] Physician GroupComment on above:Performed By: #### MG, SCAN CBC, CMP #### [place] [address] USALymphocytes (Bld) [#/Vol]0.6 10*3/uLLow1.00-4.8The [facility] Physician GroupComment on above:Performed By: #### MG, SCAN CBC, CMP #### [place] [address] USALymphocytes/100 WBC (Bld)10.3 %Normal.The [facility] Physician GroupComment on above:Performed By: #### MG, SCAN CBC, CMP #### [address] (RBC) [Entitic mass]31.4 djEibhen83.5-35.2The [facility] Physician GroupComment on above:Performed By: #### MG, SCAN CBC, CMP #### [address] (RBC) [Entitic vol]92.2 pLJjtgic19.5-101The [facility] Physician GroupComment on above:Performed By: #### MG, SCAN CBC, CMP #### [place] [address] USAMean Corpuscular HGB Conc34.0 g/xHRhwosh54.5-35.6The [facility] Physician GroupComment on above:Performed By: #### MG, SCAN CBC, CMP #### [place] [address] USAMonocytes (Bld) [#/Vol]0.9 10*3/uLHigh0.0-0.8The [facility] Physician GroupComment on above:Performed By: #### MG, SCAN CBC, CMP #### [place] [address] USAMonocytes/100 WBC (Bld)14.8 %Normal.The [facility] Physician GroupComment on above:Performed By: #### MG, SCAN CBC, CMP #### [place] [address] USANeutrophils (Bld) [#/Vol]4.5 10*3/uLNormal1.8-7.7The [facility] Physician GroupComment on above:Performed By: #### MG, SCAN CBC, CMP #### [place] [address] USANeutrophils/100 WBC (Bld)73.3 %Normal.The [facility] Physician GroupComment on above:Performed By: #### MG, SCAN CBC, CMP #### [facility] [address] [place] [address] USANRBC%0.1 /100{WBC}Normal0-0.5The [facility] Group Comment on above:Performed By: #### MG, SCAN CBC, CMP #### [facility] [address] [place] [address] USAPlatelet mean volume (Bld) [Entitic vol]7.4 fLNormal 6.6-10.1The [facility] Physician GroupComment on above:Performed By: #### MG, SCAN CBC, CMP #### [place] [address] USAPlatelets (Bld) [#/Vol]215 10*3/eHFlixwm738-131Fqj [facility] Physician GroupComment on above:Performed By: #### MG, SCAN CBC, CMP #### [place] [address] USARBC (Bld) [#/Vol]3.85 10*6/uLLow3.90-5.60The [facility] Physician GroupComment on above:Performed By: #### MG, SCAN CBC, CMP #### [place] [address] USAWBC (Bld) [#/Vol]6.2 10*3/uLNormal4.1-10.5The [facility] Physician GroupComment on above:Performed By: #### MG, SCAN CBC, CMP #### [place] [address] USAComprehensive Metabolic Panelon 10-97-0272Letrscy [Mass/Vol]3.6 g/dLNormal3.5-5.7The [facility] Physician GroupComment on above: Performed By: #### MG, SCAN CBC, CMP #### [facility] [address] [place] [address] USAAlbumin/Globulin [Mass ratio]1.3 {ratio}NormalThe [facility] Physician GroupComment on above:Performed By: #### MG, SCAN CBC, CMP #### [facility] [address] [place] [address] USAALP [Catalytic activity/Vol]75 U/DAdeuxe23-165Mtk [facility] Physician GroupComment on above:Performed By: #### MG, SCAN CBC, CMP #### [facility] [address] [place] [address] USAALT [Catalytic activity/Vol]12 U/LNormal7-52The [facility] Physician GroupComment on above:Performed By: #### MG, SCAN CBC, CMP #### [facility] [address] [place] [address] USAAnion gap [Moles/Vol]10.1 mmol/LNormal6.0-15.0The [facility] Physician GroupComment on above:Performed By: #### MG, SCAN CBC, CMP #### [facility] [address] [place] [address] USAAST [Catalytic activity/Vol]13 U/QNfywdy77-71Yok [facility] Physician GroupComment on above:Performed By: #### MG, SCAN CBC, CMP #### [facility] [address] [place] [address] USABilirubin [Mass/Vol]0.5 mg/dLNormal0.3-1.0The [facility] Physician GroupComment on above:Performed By: #### MG, SCAN CBC, CMP #### [facility] [address] [place] [address] USACalcium [Mass/Vol]8.5 mg/dLLow8.6-10.3The [facility] Physician GroupComment on above:Performed By: #### MG, SCAN CBC, CMP #### [facility] [address] [place] [address] USAChloride [Moles/Vol]103 mmol/LQayybv17-208Qmp [facility] Physician GroupComment on above:Performed By: #### MG, SCAN CBC, CMP #### [facility] [address] [place] [address] USACO2 [Moles/Vol]27.1 mmol/SVjgfla93.0-31.0The [facility] Physician GroupComment on above:Performed By: #### MG, SCAN CBC, CMP #### [facility] [address] [place] [address] USACreatinine [Mass/Vol]1.03 mg/dLNormal0.70-1.30The [facility] Physician GroupComment on above:Performed By: #### MG, SCAN CBC, CMP #### [place] [address] USACreatinine Clr Calc Ulgroflv13.18NormHendry Regional Medical Center Physician GroupComment on above:Result Comment: PERFORMED BY: [place] [address] PATHOLOGIST SUPERVISOR MOLDING HEBER SHANNON M.D.Performed By: #### MG, SCAN CBC, CMP #### [place] [address] USAGFR/1.73 sq M.predicted MDRD (S/P/Bld) [Vol rate/Area] mL/min/{1.73_m2}NormalThe [facility] Physician [facility] CenterComment on above:Performed By: #### MG, SCAN CBC, CMP #### [place] [address] USAGlobulin (S) [Mass/Vol]2.7 g/dLAscension Sacred [facility] Physician [facility] Health CenterComment on above:Performed By: #### MG, SCAN CBC, CMP #### [place] [address] USAGlucose [Mass/Vol]120 mg/wPBhvy15-238Qdt [facility] Physician GroupComment on above:Result Comment: Random Glucose Reference Range is dependent on time and content of last meal. Glucose of more than 200 mg/dL in a nonstressed, ambulatory subject supports the diagnosis of Diabetes Mellitus. ADA recommended reference rangePerformed By: #### MG, SCAN CBC, CMP #### [place] [address] USAPotassium [Moles/Vol]4.2 mmol/LNormal3.5-5.1The [facility] Physician GroupComment on above:Performed By: #### MG, SCAN CBC, CMP #### [facility] [address] [place] [address] USAProtein [Mass/Vol]6.3 g/dLLow6.4-8.9The [facility] Physician GroupComment on above:Performed By: #### MG, SCAN CBC, CMP #### [facility] [address] [place] [address] USASodium [Moles/Vol]136 mmol/HBprjol978-270Vpt [facility] Physician GroupComment on above:Performed By: #### MG, SCAN CBC, CMP #### [facility] [address] [place] [address] USAUrea nitrogen [Mass/Vol]35 mg/dLHigh7-25The [facility] Physician GroupComment on above:Performed By: #### MG, SCAN CBC, CMP #### [facility] [address] [place] [address] USAAlanine aminotransferase [Enzymatic activity/volume] in Serum or PlasmaOrdered By: Talib Faustin on 10-61-5201APD [Catalytic activity/Vol]Alanine aminotransferase [Enzymatic activity/volume] in Serum or Plasma7Prom[facility] Flower HospitalAlbumin [Mass/volume] in Serum or Plasma by Bromocresol green (BCG) dye binding methoOrdered By: Talib Faustin on 31-96-5714Vobembu BCG dye [Mass/Vol]Albumin [Mass/volume] in Serum or Plasma by Bromocresol green (BCG) dye binding metho3.5-5.7FFayette County Memorial HospitalAlkaline phosphatase [Enzymatic activity/volume] in Serum or PlasmaOrdered By: Talib Faustin on 61-88-6983ABO [Catalytic activity/Vol]Alkaline phosphatase [Enzymatic activity/volume] in Serum or Lzvpop40-884PshtieovdPromedica Flower HospitalAspartate aminotransferase [Enzymatic activity/volume] in Serum or Plasma Ordered By: Talib Faustin on 69-12-1509ITJ [Catalytic activity/Vol]Aspartate aminotransferase [Enzymatic activity/volume] in Serum or Izjoyg68-63OxprvegqbPromedica Flower HospitalBasophils Auto (Bld) [#/Vol]Ordered By: rick Faustin on 26-90-6838Zihasitrh (Bld) [#/Vol]Automated basophil count0.0-0.2FFayette County Memorial HospitalBasophils/100 WBC Auto (Bld)Ordered By: [facility] Ramin on 25-90-0212Yfkjognmx/100 WBC (Bld)Automated basophil %.[facility] Flower HospitalBilirubin.total [Mass/volume] in Serum or PlasmaOrdered By: [facility] R[facility] on 97-22-1102Qeuqmgfcg [Mass/Vol]Bilirubin.total [Mass/volume] in Serum or Plasma0.3-1.0[facility] Flower HospitalCalcium [Mass/volume] in Serum or PlasmaOrdered By: [facility] R[facility] on 64-38-4899Tszicrp [Mass/Vol]Calcium [Mass/volume] in Serum or Plasma8.6-10.3FFayette County Memorial HospitalCarbon dioxide, total [Moles/volume] in Serum or PlasmaOrdered By: [facility] Ramin on 19-48-1744JO9 [Moles/Vol]Carbon dioxide, total [Moles/volume] in Serum or Plasma 21.0-31.0Prom[facility] Flower HospitalChloride [Moles/volume] in Serum or PlasmaOrdered By: [facility] CenterConi on 04-67-4258Mbvoapxh [Moles/Vol]Chloride [Moles/volume] in Serum or Zdtodt49-340OenhcwwdrPromedica Flower HospitalComplete Blood Count Auto Diffon 69-58-8606Ycpgqpaek (Bld) [#/Vol]0.1 10*3/uLNormal 0.0-0.2The [facility] Physician GroupComment on above:Result Comment: PERFORMED BY: [facility] [address] [facility] [place] [address] PATHOLOGIST SUPERVISOR MOLDING HEBER SHANNON M.D.Performed By: #### ESR #### [place] [address] USABasophils/100 WBC (Bld)1.0 %Normal.The [facility] Physician GroupComment on above:Performed By: #### ESR #### [facility] [address] [place] [address] USAEosinophils (Bld) [#/Vol]0.1 10*3/uLNormal0.0-0.45The [facility] Physician GroupComment on above:Performed By: #### ESR #### [facility] [address] [place] [address] USAEosinophils/100 WBC (Bld)1.4 %Normal.The [facility] Physician GroupComment on above:Performed By: #### ESR #### [facility] [address] [place] [address] USAErythrocyte distribution width (RBC) [Ratio]13.6 %Normal 12.0-14.8The [facility] Physician GroupComment on above:Performed By: #### ESR #### [facility] [address] [place] [address] USAHematocrit (Bld) [Volume fraction]35.4 %Low38.8-50.0The [facility] Physician GroupComment on above:Performed By: #### ESR #### [place] [address] USAHemoglobin (Bld) [Mass/Vol]12.0 g/dLLow13.0-17.0The [facility] Physician GroupComment on above:Performed By: #### ESR #### [facility] [address] [place] [address] USALymphocytes (Bld) [#/Vol]0.9 10*3/uLLow1.00-4.8The [facility] Physician GroupComment on above:Performed By: #### ESR #### [facility] [address] [place] [address] USALymphocytes/100 WBC (Bld)13.0 %Normal.The [facility] Physician GroupComment on above:Performed By: #### ESR #### [facility] [address] [place] [address] USAMCH (RBC) [Entitic mass]31.1 rzUlvfta11.5-35.2The [facility] Physician GroupComment on above:Performed By: #### ESR #### [facility] [address] [place] [address] USAMCV (RBC) [Entitic vol]91.5 xDPfbylv47.5-101The [facility] Physician GroupComment on above:Performed By: #### ESR #### [place] [address] USAMean Corpuscular HGB Conc34.0 g/yHIocnyr56.5-35.6The [facility] Physician GroupComment on above:Performed By: #### ESR #### [place] [address] USAMonocytes (Bld) [#/Vol]0.7 10*3/uLNormal0.0-0.8The [facility] Physician GroupComment on above:Performed By: #### ESR #### [place] [address] USAMonocytes/100 WBC (Bld)9.8 %Normal.The [facility] Physician GroupComment on above:Performed By: #### ESR #### [place] [address] USANeutrophils (Bld) [#/Vol]5.1 10*3/uLNormal1.8-7.7The [facility] Physician GroupComment on above:Performed By: #### ESR #### [place] [address] USANeutrophils/100 WBC (Bld)74.8 %Normal.The [facility] Physician GroupComment on above:Performed By: #### ESR #### [place] [address] USANRBC%0.1 /100{WBC}Normal0-0.5The [facility] Group Comment on above:Performed By: #### ESR #### [place] [address] USAPlatelet mean volume (Bld) [Entitic vol]7.4 fLNormal 6.6-10.1The [facility] Physician GroupComment on above:Performed By: #### ESR #### [place] [address] USAPlatelets (Bld) [#/Vol]217 10*3/tRWlbirl569-294Asr [facility] Physician GroupComment on above:Performed By: #### ESR #### [place] [address] USARBC (Bld) [#/Vol]3.87 10*6/uLLow3.90-5.60The [facility] Physician GroupComment on above:Performed By: #### ESR #### [place] [address] USAWBC (Bld) [#/Vol]6.9 10*3/uLNormal4.1-10.5The [facility] Physician GroupComment on above:Performed By: #### ESR #### [place] [address] USAComprehensive Metabolic Panelon 99-22-4161Tzkmxey [Mass/Vol]3.7 g/dLNormal3.5-5.7The [facility] Physician GroupComment on above: Performed By: #### ESR #### [place] [address] USAAlbumin/Globulin [Mass ratio]1.3 {ratio}NormalThe [facility] Physician GroupComment on above:Performed By: #### ESR #### [place] [address] USAALP [Catalytic activity/Vol]80 U/KGfysjz67-193Iea [facility] Physician GroupComment on above:Performed By: #### ESR #### [place] [address] USAALT [Catalytic activity/Vol]13 U/LNormal7-52The [facility] Physician GroupComment on above:Performed By: #### ESR #### [place] [address] USAAnion gap [Moles/Vol]9.4 mmol/LNormal6.0-15.0The [facility] Physician GroupComment on above:Performed By: #### ESR #### [facility] [address] [place] [address] USAAST [Catalytic activity/Vol]14 U/HYgfkoc98-33Qjm [facility] Physician GroupComment on above:Performed By: #### ESR #### [facility] [address] [place] [address] USABilirubin [Mass/Vol]0.5 mg/dLNormal0.3-1.0The [facility] Physician GroupComment on above:Performed By: #### ESR #### [facility] [address] [place] [address] USACalcium [Mass/Vol]8.9 mg/dLNormal8.6-10.3The [facility] Physician GroupComment on above:Performed By: #### ESR #### [place] [address] USAChloride [Moles/Vol]104 mmol/HEsflsr52-170Mxg [facility] Physician GroupComment on above:Performed By: #### ESR #### [place] [address] USACO2 [Moles/Vol]26.8 mmol/SUfafae08.0-31.0The [facility] Physician GroupComment on above:Performed By: #### ESR #### [place] [address] USACreatinine [Mass/Vol]0.87 mg/dLNormal0.70-1.30The [facility] Physician GroupComment on above:Performed By: #### ESR #### [place] [address] USACreatinine Clr Calc Aqjxsvyu45.04NormalThe [facility] Physician GroupComment on above:Result Comment: PERFORMED BY: [place] [address] PATHOLOGIST SUPERVISOR MOLDING HEBER SHANNON M.D.Performed By: #### ESR #### [place] [address] USAGFR/1.73 sq M.predicted MDRD (S/P/Bld) [Vol rate/Area] mL/min/{1.73_m2}NormalThe [facility] Physician GroupComment on above:Performed By: #### ESR #### [facility] [address] [place] [address] USAGlobulin (S) [Mass/Vol]2.9 g/dLNormalThe [facility] Physician GroupComment on above:Performed By: #### ESR #### [facility] [address] [place] [address] USAGlucose [Mass/Vol]107 mg/eZRvsi71-475Gha [facility] Physician GroupComment on above:Result Comment: Random Glucose Reference Range is dependent on time and content of last meal. Glucose of more than 200 mg/dL in a nonstressed, ambulatory subject supports the diagnosis of Diabetes Mellitus. ADA recommended reference rangePerformed By: #### ESR #### [place] [address] USAPotassium [Moles/Vol]4.2 mmol/LNormal3.5-5.1The [facility] Physician GroupComment on above:Performed By: #### ESR #### [place] [address] USAProtein [Mass/Vol]6.6 g/dLNormal6.4-8.9The [facility] Physician GroupComment on above:Performed By: #### ESR #### [place] [address] USASodium [Moles/Vol]136 mmol/BVsdqgd290-473Dtr [facility] Physician GroupComment on above:Performed By: #### ESR #### [facility] [address] [place] [address] USAUrea nitrogen [Mass/Vol]30 mg/dLHigh7-25The [facility] Physician GroupComment on above:Performed By: #### ESR #### [place] [address] USACreatinine [Mass/volume] in Serum or PlasmaOrdered By: Talib Faustin on 03-44-1638Kwxgznisbu [Mass/Vol]Creatinine [Mass/volume] in Serum or Plasma0.70-1.30Prom[facility] Flower HospitalEosinophils Auto (Bld) [#/Vol]Ordered By: Talib Faustin on 77-16-3704Xqlnoprrtzd (Bld) [#/Vol] Automated eosinophil count0.0-0.45[facility] Eosinophils/100 WBC Auto (Bld)Ordered By: Talib Faustin on 07-26-2024 Eosinophils/100 WBC (Bld)Automated eosinophil %.[facility] HospitalErythrocyte distribution width Auto (RBC) [Ratio]Ordered By: Talib Hargrove on 62-39-2629Ehgbqmdetfr distribution width (RBC) [Ratio]Erythrocyte distribution width [Ratio] by Automated count12.0-14.8Prom[facility] HospitalGlobulin Calc (S) [Mass/Vol]Ordered By: Talib Faustin on 07-26-2024 Globulin (S) [Mass/Vol]Serum globulin measurement by calculation (mass/volume) [facility] HospitalGlucose [Mass/volume] in Serum or PlasmaOrdered By: Talib Faustin on 94-23-6178Ddayedw [Mass/Vol]Glucose [Mass/volume] in Serum or QmnspuTdlk12-314OwlwrwsbhPromedica Flower HospitalComment on above:ADA recommended reference rangeRandom Glucose Reference Range is dependent on time and content of last meal. Glucose of more than 200 mg/dL in a nonstressed, ambulatory subject supports the diagnosisof Diabetes Mellitus.Hematocrit Auto (Bld) [Volume fraction]Ordered By: Talib Faustni on 29-29-0691Nnochuwoxq (Bld) [Volume fraction]Hematocrit [Volume Fraction] of Blood by Automated countLow 38.8-50.0[facility] HospitalHemoglobin [Mass/volume] in Blood Ordered By: Talib Faustin on 17-46-3914Spqczkwwev (Bld) [Mass/Vol]Hemoglobin [Mass/volume] in GwibxChi20.0-17.0Prom[facility] HospitalLeukocytes [#/volume] corrected for nucleated erythrocytes in Blood by Automated coun Ordered By: Talib Faustin on 97-22-9074DPP corrected for nucl RBC Auto (Bld) [#/Vol]Leukocytes [#/volume] corrected for nucleated erythrocytes in Blood by Automated coun4.1-10.5FFayette County Memorial HospitalLymphocytes Auto (Bld) [#/Vol]Ordered By: Talib Faustin on 85-73-7683Rnhxmkfrhkh (Bld) [#/Vol] Lymphocytes [#/volume] in Blood by Automated countLow1.00-4.8Prom[facility] HospitalLymphocytes/100 WBC Auto (Bld)Ordered By: Talib Faustin on 05-74-2057Ppspefglkac/100 WBC (Bld)Lymphocytes/100 leukocytes in Blood by Automated count.[facility] HospitalMCH Auto (RBC) [Entitic mass] Ordered By: Talib Faustin on 16-25-5586TIA (RBC) [Entitic mass]MCH [Entitic mass] by Automated count27.5-35.2FFayette County Memorial HospitalMCHC Auto (RBC) [Mass/Vol]Ordered By: Talib Faustin on 87-79-2575REVZ (RBC) [Mass/Vol] MCHC [Mass/volume] by Automated count32.5-35.6FFayette County Memorial Hospital MCV Auto (RBC) [Entitic vol]Ordered By: Talib Faustin on 80-62-4039FTZ (RBC) [Entitic vol]MCV [Entitic volume] by Automated count83.5-101Prom[facility] F[facility] HospitalMonocytes Auto (Bld) [#/Vol]Ordered By: Talib Faustin on 20-96-6606Aquyhgiii (Bld) [#/Vol]Automated blood monocyte count0.0-0.8Prom[facility] HospitalMonocytes/100 WBC Auto (Bld)Ordered By: Talib Faustin on 34-47-9946Bktuzwkty/100 WBC (Bld)Automated monocyte %.[facility] HospitalNeutrophils Auto (Bld) [#/Vol]Ordered By: Talib Faustin on 49-39-7625Qvbgzmgscqs (Bld) [#/Vol]Neutrophils [#/volume] in Blood by Automated count1.8-7.7FFayette County Memorial HospitalNeutrophils/100 WBC Auto (Bld) Ordered By: Talib Faustin on 01-20-1522Ludbtbymlip/100 WBC (Bld)Automated neutrophil %.[facility] HospitalNo Panel InformationOrdered By: Talib Faustin on 50-93-8193Abuticsgs GFR (CKD-EPI)> 60.0 mL/MinPromedica Flower HospitalPharmacy Creatinine Clearance (Chem57.04Prom[facility] Flower HospitalNucleated erythrocytes [Presence] in Blood by Automated countOrdered By: Talib Faustin on 68-33-7902Xuebalrhp RBC Auto Ql (Bld) Nucleated erythrocytes [Presence] in Blood by Automated count0-0.5FFayette County Memorial HospitalPlatelet mean volume Auto (Bld) [Entitic vol]Ordered By: Talib Faustin on 98-51-6102Dwlcsiug mean volume (Bld) [Entitic vol]Platelet mean volume [Entitic volume] in Blood by Automated count6.6-10.1FFayette County Memorial HospitalPlatelets Auto (Bld) [#/Vol]Ordered By: Talib Faustin on 48-29-6450Aufqseoty (Bld) [#/Vol]Platelets [#/volume] in Blood by Automated msnih457-825AqmbwxwwiPromedica Flower HospitalPotassium [Moles/volume] in Serum or PlasmaOrdered By: Talib Faustin on 90-49-3017Deqbkcjpp [Moles/Vol]Potassium [Moles/volume] in Serum or Plasma3.5-5.1FFayette County Memorial HospitalProtein [Mass/volume] in Serum or PlasmaOrdered By: Talib Faustin on 18-07-9074Shgpkdv [Mass/Vol]Protein [Mass/volume] in Serum or Plasma6.4-8.9Prom[facility] Flower HospitalRBC Auto (Bld) [#/Vol]Ordered By: Talib Faustin on 13-92-9387TLM (Bld) [#/Vol]Erythrocytes [#/volume] in Blood by Automated countLow3.90-5.60 [facility] Easterum or plasma albumin/globulin mass ratio Ordered By: Talib Faustin on 40-99-7893Swkuifa/Globulin [Mass ratio]Serum or plasma albumin/globulin mass ratioRegency Hospital Cleveland Easterum or plasma anion gap determinationOrdered By: Talib Faustin on 52-69-8613Miqbq gap [Moles/Vol]Serum or plasma anion gap determination6.0-15.0[facility] Eastodium [Moles/volume] in Serum or PlasmaOrdered By: Talib Faustin on 55-06-5948Ekmkln [Moles/Vol]Sodium [Moles/volume] in Serum or Kkmlzs748-966 [facility] HospitalUrea nitrogen [Mass/volume] in Serum or Plasma Ordered By: Talib Faustin on 97-53-9721Zpmv nitrogen [Mass/Vol]Urea nitrogen [Mass/volume] in Serum or PlasmaHigh7-25Prom[facility] Flower HospitalWBC Auto (Bld) [#/Vol]Ordered By: Talib Faustin on 52-30-9896NNY (Bld) [#/Vol] Leukocytes [#/volume] in Blood by Automated count4.1-10.5FFayette County Memorial HospitalComplete Blood Count Auto Diffon 39-54-2243Ssovsdapf (Bld) [#/Vol] 0.0 10*3/uLNormal0.0-0.2[facility] Physician GroupComment on above:Result Comment: PERFORMED BY: [place] [address] PATHOLOGIST SUPERVISOR MOLDING HEBER SHANNON M.D.Performed By: #### MG, CMP, CBC #### [facility] [address] [place] [address] USAPerformed By: #### MG, SCAN CBC, CMP #### [facility] [address] [place] [address] USABasophils/100 WBC (Bld)0.5 %Normal.The [facility] Physician GroupComment on above:Performed By: #### MG, CMP, CBC #### [facility] [address] [place] [address] USAPerformed By: #### MG, SCAN CBC, CMP #### [place] [address] USAEosinophils (Bld) [#/Vol]0.1 10*3/uLNormal0.0-0.45The [facility] Physician GroupComment on above:Performed By: #### MG, CMP, CBC #### [place] [address] USAPerformed By: #### MG, SCAN CBC, CMP #### [place] [address] USAEosinophils/100 WBC (Bld)1.4 %Normal.The [facility] Physician GroupComment on above:Performed By: #### MG, CMP, CBC #### [place] [address] USAPerformed By: #### MG, SCAN CBC, CMP #### [place] [address] USAErythrocyte distribution width (RBC) [Ratio]13.4 %Normal 12.0-14.8The [facility] Physician GroupComment on above:Performed By: #### MG, CMP, CBC #### [place] [address] USAPerformed By: #### MG, SCAN CBC, CMP #### [place] [address] USAHematocrit (Bld) [Volume fraction]35.7 %Low38.8-50.0The [facility] Physician GroupComment on above:Performed By: #### MG, CMP, CBC #### [place] [address] USAPerformed By: #### MG, SCAN CBC, CMP #### [place] [address] USAHemoglobin (Bld) [Mass/Vol]12.0 g/dLLow13.0-17.0The [facility] Physician GroupComment on above:Performed By: #### MG, CMP, CBC #### [place] [address] USAPerformed By: #### MG, SCAN CBC, CMP #### [place] [address] USALymphocytes (Bld) [#/Vol]1.3 10*3/uLNormal1.00-4.8The [facility] Physician GroupComment on above:Performed By: #### MG, CMP, CBC #### [place] [address] USAPerformed By: #### MG, SCAN CBC, CMP #### [place] [address] USALymphocytes/100 WBC (Bld)11.6 %Normal.The [facility] Physician GroupComment on above:Performed By: #### MG, CMP, CBC #### [place] [address] USAPerformed By: #### MG, SCAN CBC, CMP #### [address]H (RBC) [Entitic mass]30.7 pgVaxjeg77.5-35.2The [facility] Physician GroupComment on above:Performed By: #### MG, CMP, CBC #### [place] [address] USAPerformed By: #### MG, SCAN CBC, CMP #### [address]V (RBC) [Entitic vol]91.3 jKMaobpb96.5-101The [facility] Physician GroupComment on above:Performed By: #### MG, CMP, CBC #### [place] [address] USAPerformed By: #### MG, SCAN CBC, CMP #### [place] [address] USAMean Corpuscular HGB Conc33.7 g/sFIqcapt58.5-35.6The [facility] Physician GroupComment on above:Performed By: #### MG, CMP, CBC #### [place] [address] USAPerformed By: #### MG, SCAN CBC, CMP #### [place] [address] USAMonocytes (Bld) [#/Vol]0.8 10*3/uLNormal0.0-0.8The [facility] Physician GroupComment on above:Performed By: #### MG, CMP, CBC #### [place] [address] USAPerformed By: #### MG, SCAN CBC, CMP #### [place] [address] USAMonocytes/100 WBC (Bld)7.4 %Normal.The [facility] Physician GroupComment on above:Performed By: #### MG, CMP, CBC #### [place] [address] USAPerformed By: #### MG, SCAN CBC, CMP #### [place] [address] USANeutrophils (Bld) [#/Vol]8.7 10*3/uLHigh1.8-7.7The [facility] Physician GroupComment on above:Performed By: #### MG, CMP, CBC #### [place] [address] USAPerformed By: #### MG, SCAN CBC, CMP #### [place] [address] USANeutrophils/100 WBC (Bld)79.1 %Normal.The [facility] Physician GroupComment on above:Performed By: #### MG, CMP, CBC #### [place] [address] USAPerformed By: #### MG, SCAN CBC, CMP #### [place] [address] USANRBC%0.1 /100{WBC}Normal0-0.5The [facility] Group Comment on above:Performed By: #### MG, CMP, CBC #### [place] [address] USAPerformed By: #### MG, SCAN CBC, CMP #### [facility] [address] [place] [address] USAPlatelet mean volume (Bld) [Entitic vol]7.9 fLNormal 6.6-10.1The [facility] Physician GroupComment on above:Performed By: #### MG, CMP, CBC #### [place] [address] USAPerformed By: #### MG, SCAN CBC, CMP #### [place] [address] USAPlatelets (Bld) [#/Vol]179 10*3/aPHdwclp167-126Vye [facility] Physician GroupComment on above:Performed By: #### MG, CMP, CBC #### [place] [address] USAPerformed By: #### MG, SCAN CBC, CMP #### [place] [address] USARBC (Bld) [#/Vol]3.91 10*6/uLNormal3.90-5.60The [facility] Physician GroupComment on above:Performed By: #### MG, CMP, CBC #### [place] [address] USAPerformed By: #### MG, SCAN CBC, CMP #### [place] [address] USAWBC (Bld) [#/Vol]11.0 10*3/uLHigh4.1-10.5The [facility] Physician GroupComment on above:Performed By: #### MG, CMP, CBC #### [place] [address] USAPerformed By: #### MG, SCAN CBC, CMP #### [place] [address] USAComprehensive Metabolic Panelon 66-88-9754Wdtbkgp [Mass/Vol]3.8 g/dLNormal3.5-5.7The [facility] Physician GroupComment on above: Performed By: #### MG, CMP, CBC #### [facility] [address] [place] [address] USAPerformed By: #### UA #### [facility] [address] [place] [address] USAAlbumin/Globulin [Mass ratio]1.5 {ratio}NormalThe [facility] Physician GroupComment on above:Performed By: #### MG, CMP, CBC #### [facility] [address] [place] [address] USAPerformed By: #### UA #### [facility] [address] [place] [address] USAALP [Catalytic activity/Vol]84 U/CHorwsq56-976Uvb [facility] Physician GroupComment on above:Performed By: #### MG, CMP, CBC #### [facility] [address] [place] [address] USAPerformed By: #### UA #### [facility] [address] [place] [address] USAALT [Catalytic activity/Vol]12 U/LNormal7-52The [facility] Physician GroupComment on above:Performed By: #### MG, CMP, CBC #### [facility] [address] [place] [address] USAPerformed By: #### UA #### [facility] [address] [place] [address] USAAnion gap [Moles/Vol]10.1 mmol/LNormal6.0-15.0The [facility] Physician GroupComment on above:Performed By: #### MG, CMP, CBC #### [facility] [address] [place] [address] USAPerformed By: #### UA #### [facility] [address] [place] [address] USAAST [Catalytic activity/Vol]11 U/IAhv62-76Hnz [facility] Physician GroupComment on above:Performed By: #### MG, CMP, CBC #### [facility] [address] [place] [address] USAPerformed By: #### UA #### [facility] [address] [place] [address] USABilirubin [Mass/Vol]0.6 mg/dLNormal0.3-1.0The [facility] Physician GroupComment on above:Performed By: #### MG, CMP, CBC #### [facility] [address] [place] [address] USAPerformed By: #### UA #### [facility] [address] [place] [address] USACalcium [Mass/Vol]9.2 mg/dLNormal8.6-10.3The [facility] Physician GroupComment on above:Performed By: #### MG, CMP, CBC #### [facility] [address] [place] [address] USAPerformed By: #### UA #### [place] [address] USAChloride [Moles/Vol]107 mmol/LDovxhi28-266Nit [facility] Physician GroupComment on above:Performed By: #### MG, CMP, CBC #### [facility] [address] [place] [address] USAPerformed By: #### UA #### [facility] [address] [place] [address] USACO2 [Moles/Vol]25.1 mmol/LAksvww48.0-31.0The [facility] Physician GroupComment on above:Performed By: #### MG, CMP, CBC #### [facility] [address] [place] [address] USAPerformed By: #### UA #### [facility] [address] [place] [address] USACreatinine [Mass/Vol]0.95 mg/dLNormal0.70-1.30The [facility] Physician GroupComment on above:Performed By: #### MG, CMP, CBC #### [facility] [address] [place] [address] USAPerformed By: #### UA #### [facility] [address] [place] [address] USACreatinine Clr Calc Mswjarqx04.56NormalThe [facility] Physician GroupComment on above:Performed By: #### MG, CMP, CBC #### [facility] [address] [place] [address] USAPerformed By: #### UA #### [facility] [address] [place] [address] USAGFR/1.73 sq M.predicted MDRD (S/P/Bld) [Vol rate/Area] mL/min/{1.73_m2}NormalThe [facility] Physician GroupComment on above:Performed By: #### MG, CMP, CBC #### [facility] [address] [place] [address] USAPerformed By: #### UA #### [facility] [address] [place] [address] USAGlobulin (S) [Mass/Vol]2.6 g/dLNoPending sale to [facility] Physician GroupComment on above:Performed By: #### MG, CMP, CBC #### [facility] [address] [place] [address] USAPerformed By: #### UA #### [place] [address] USAGlucose [Mass/Vol]115 mg/tRFwow59-083Xqd [facility] Physician GroupComment on above:Result Comment: Random Glucose Reference Range is dependent on time and content of last meal. Glucose of more than 200 mg/dL in a nonstressed, ambulatory subject supports the diagnosis of Diabetes Mellitus. ADA recommended reference rangePerformed By: #### MG, CMP, CBC #### [facility] [address] [place] [address] USAPerformed By: #### UA #### [facility] [address] [place] [address] USAPotassium [Moles/Vol]4.2 mmol/LNormal3.5-5.1[facility] Physician GroupComment on above:Performed By: #### MG, CMP, CBC #### [place] [address] USAPerformed By: #### UA #### [place] [address] USAProtein [Mass/Vol]6.4 g/dLNormal6.4-8.9The [facility] Physician GroupComment on above:Performed By: #### MG, CMP, CBC #### [facility] [address] [place] [address] USAPerformed By: #### UA #### [facility] [address] [place] [address] USASodium [Moles/Vol]138 mmol/FNmblzn346-970Zls [facility] Physician GroupComment on above:Performed By: #### MG, CMP, CBC #### [facility] [address] [place] [address] USAPerformed By: #### UA #### [facility] [address] [place] [address] USAUrea nitrogen [Mass/Vol]30 mg/dLHigh7-25The [facility] Physician GroupComment on above:Performed By: #### MG, CMP, CBC #### [facility] [address] [place] [address] USAPerformed By: #### UA #### [place] [address] USAMagnesiumon 80-05-6122Xpzuofbgy [Mass/Vol]1.8 mg/dLLow 1.9-2.7The [facility] Physician GroupComment on above:Result Comment: PERFORMED BY: [place] [address] PATHOLOGIST SUPERVISOR MOLDING HEBER SHANNON M.D.Performed By: #### MG, CMP, CBC #### [facility] [address] [place] [address] USAPerformed By: #### UA #### [facility] [address] [place] [address] USAMagnesium [Mass/volume] in Serum or PlasmaOrdered By: Talib Faustin on 72-73-8438Eqqtvscyp [Mass/Vol]Magnesium [Mass/volume] in Serum or PlasmaLow1.9-2.7FFayette County Memorial HospitalOffice Visiton 07-19-2024 Follow-up [id number] Jeremie Bennett 1940 M Date Provider Department Center 07/19/2024 BOY SON Nicolette Dimitri Family History Problem Relation Age of Onset Coronary artery disease Mother Kidney disease Mother Heart failure Mother Family Status - Relation Status Age at Mother Level of Service:[address] [place] POSTOP FOLLOW UP VISIT RELATED TO ORIGINAL [facility] HospitalGLUCOSE POCT GLUCOMETERSon 48-08-3453VPEICVS8 Glu2: Cleaned MeterNOAktiveBayGlucose [Mass/Vol]107 mg/dLPemiscot Memorial Health Systems Comment on above:Random Glucose Reference Range is dependent on time and content of last meal. Glucose of more than 200 mg/dL in a nonstressed, ambulatory subject supports the diagnosis of Diabetes Mellitus. [facility] Apsara TherapeuticsGlucose Glucometer (dC) [Mass/Vol]Ordered By: Matteo Melo on 27-79-4250Xurgkca [Mass/Vol]Capillary blood glucose measurement by glucometer (mass/volume)[facility] Flower HospitalComment on above:Random Glucose Reference Range is dependent on time and content of last meal. Glucose of more than 200 mg/dL in a nonstressed, ambulatory subject supports the diagnosis of Diabetes Mellitus.Glucose Poct Glucometerson 22-96-1952Napaoul8Csh8: Cleaned MeterAscension Sacred Heart Bay Physician GroupComment on above:Result Comment: PERFORMED BY: [place] [address] PATHOLOGIST SUPERVISOR MOLDING HEBER SHANNON M.D.Performed By: #### GLULS #### Point of Care testing ,Performed By: #### ESR #### [place] [address] USAGlucose [Mass/Vol]107 mg/dLAscension Sacred Heart Bay Physician GroupComment on above:Result Comment: Random Glucose Reference Range is dependent on time and content of last meal. Glucose of more than 200 mg/dL in a nonstressed, ambulatory subject supports the diagnosis of Diabetes Mellitus.Performed By: #### GLULS #### Point of Care testing ,Performed By: #### ESR #### [address] [address] USANo Panel InformationOrdered By: Matteo Melo on 59-12-2774Zbwtyor Glucose CommentGlu2: cleaned meterPromedica Flower HospitalX-ray reportOrdered By: Mario Urias on 15-44-1844Chdkb reportUC HEALTH Main [place] [address] [place] [address] XRay Report Signed Patient: Jeremie Bennett MR#: [id number] : 1940 Acct:[id number] Age/Sex: 83 / M ADM Date: 5 Loc: [place] Room: Type: [facility] [place] Attending Dr: Matteo Melo MD Copies to: [...] Urias Jr., D.O.07/17/2024 2:07 PM Dictation Location: [place] [address] Transcribed By: [facility] 07/17/24 1407 Dictated By: Mario Urias Jr, DO 07/17/24 1407 Signed By: 07/17/24 140Mitchell [facility]lower HospitalXR chest 1V portableon 13-97-7443UN chest 1V portableUC HEALTH Main [place] [address] [place] [address] XRay Report Signed Patient: Jeremie Bennett MR#: [id number] : 1940 Acct:[id number] Age/Sex: 83 / M ADM Date: 07/17/24 Loc: [place] Room: Type: [facility] [place] Attending Dr: Matteo Melo MD Copies to: [...] Urias Jr, DO 07/17/241406 Signed By: 07/17/24 DavyHoulton Regional Hospital GroupXR chest 1V portableUC HEALTH [facility] [place] [address] [place] [address] XRay Report Signed Patient: Jeremie Bennett MR#: [id number] : 1940 Acct:[id number] Age/Sex: 83 / M ADM Date: 07/17/24 Loc: [place] Room: Type[facility] Attending Dr: Matteo Melo MD Copies to: [...] Urias Jr, DO 07/17/241406 Signed By: 07/17/24 DavyAscension Sacred Heart Bay Physician GroupAlanine aminotransferase [Enzymatic activity/volume] in Serum or PlasmaOrdered By: Talib Faustin on 57-91-9092JHQ [Catalytic activity/Vol]Alanine aminotransferase [Enzymatic activity/volume] in Serum or Plasma7-52Prom[facility] Flower HospitalAlbumin [Mass/volume] in Serum or Plasma by Bromocresol green (BCG) dye binding metho Ordered By: Talib Faustin on 72-36-2158Yhdcapw BCG dye [Mass/Vol]Albumin [Mass/volume] in Serum or Plasma by Bromocresol green (BCG) dye binding metho 3.5-5.7FFayette County Memorial HospitalAlkaline phosphatase [Enzymatic activity/volume] in Serum or PlasmaOrdered By: Talib Faustin on 03-13-9509RGZ [Catalytic activity/Vol]Alkaline phosphatase [Enzymatic activity/volume] in Serum or Ahoszl62-682VwlwubhovPromedica Flower HospitalAspartate aminotransferase [Enzymatic activity/volume] in Serum or PlasmaOrdered By: Talib Faustin on 23-33-4223YOF [Catalytic activity/Vol]Aspartate aminotransferase [Enzymatic activity/volume] in Serum or PbcwcfMom28-92BnjuzpejzPromedica Flower Hospital Basophils Auto (Bld) [#/Vol]Ordered By: Talib Faustin on 68-90-9669Vgeemewpn (Bld) [#/Vol]Automated basophil count0.0-0.2FFayette County Memorial Hospital Basophils/100 WBC Auto (Bld)Ordered By: Talib Faustin on 07-12-2024 Basophils/100 WBC (Bld)Automated basophil %.[facility] Bilirubin.total [Mass/volume] in Serum or PlasmaOrdered By: Talib Faustin on 29-81-3297Qefvvkitv [Mass/Vol]Bilirubin.total [Mass/volume] in Serum or Plasma 0.3-1.0[facility] Flower HospitalCalcium [Mass/volume] in Serum or Plasma Ordered By: Talib Faustin on 07-49-0548Uvuplbb [Mass/Vol]Calcium [Mass/volume] in Serum or Plasma8.6-10.3FFayette County Memorial HospitalCarbon dioxide, total [Moles/volume] in Serum or PlasmaOrdered By: Talib Faustin on 54-53-4855CT1 [Moles/Vol]Carbon dioxide, total [Moles/volume] in Serum or Efckfh79.0-31.0 [facility] HospitalChloride [Moles/volume] in Serum or Plasma Ordered By: Talib Faustin on 61-64-8763Wcfaaxwy [Moles/Vol]Chloride [Moles/volume] in Serum or Pkfgdf27-900WwscawalhPromedica Flower HospitalComplete Blood Count Auto Diffon 19-82-7035Jizkbczso (Bld) [#/Vol]0.0 10*3/uLNormal 0.0-0.2The [facility] Physician GroupComment on above:Result Comment: PERFORMED BY: [place] [address] PATHOLOGIST SUPERVISOR MOLDING HEBER SHANNON M.D.Performed By: #### CBC, CMP, MG #### [facility] [address] [place] [address] USAPerformed By: #### UA #### [facility] [address] [place] [address] USABasophils/100 WBC (Bld)0.3 %Normal.The [facility] Physician GroupComment on above:Performed By: #### CBC, CMP, MG #### [facility] [address] [place] [address] USAPerformed By: #### UA #### [place] [address] USAEosinophils (Bld) [#/Vol]0.2 10*3/uLNormal0.0-0.45The [facility] Physician GroupComment on above:Performed By: #### CBC, CMP, MG #### [facility] [address] [place] [address] USAPerformed By: #### UA #### [facility] [address] [place] [address] USAEosinophils/100 WBC (Bld)1.7 %Normal.The [facility] Physician GroupComment on above:Performed By: #### CBC, CMP, MG #### [facility] [address] [place] [address] USAPerformed By: #### UA #### [place] [address] USAErythrocyte distribution width (RBC) [Ratio]13.7 %Normal 12.0-14.8The [facility] Physician GroupComment on above:Performed By: #### CBC, CMP, MG #### [place] [address] USAPerformed By: #### UA #### [place] [address] USAHematocrit (Bld) [Volume fraction]38.0 %Low38.8-50.0The [facility] Physician GroupComment on above:Performed By: #### CBC, CMP, MG #### [place] [address] USAPerformed By: #### UA #### [place] [address] USAHemoglobin (Bld) [Mass/Vol]12.6 g/dLLow13.0-17.0The [facility] Physician GroupComment on above:Performed By: #### CBC, CMP, MG #### [place] [address] USAPerformed By: #### UA #### [place] [address] USALymphocytes (Bld) [#/Vol]2.0 10*3/uLNormal1.00-4.8The [facility] Physician GroupComment on above:Performed By: #### CBC, CMP, MG #### [place] [address] USAPerformed By: #### UA #### [place] [address] USALymphocytes/100 WBC (Bld)19.2 %Normal.The [facility] Physician GroupComment on above:Performed By: #### CBC, CMP, MG #### [place] [address] USAPerformed By: #### UA #### [address] [address] USAMCH (RBC) [Entitic mass]30.7 zzTefjtc81.5-35.2The [facility] Physician GroupComment on above:Performed By: #### CBC, CMP, MG #### [place] [address] USAPerformed By: #### UA #### [address] StreetV (RBC) [Entitic vol]92.2 wOKipvru45.5-101The [facility] Physician GroupComment on above:Performed By: #### CBC, CMP, MG #### [place] [address] USAPerformed By: #### UA #### [place] [address] USAMean Corpuscular HGB Conc33.3 g/tRNvsptf41.5-35.6The [facility] Physician GroupComment on above:Performed By: #### CBC, CMP, MG #### [place] [address] USAPerformed By: #### UA #### [place] [address] USAMonocytes (Bld) [#/Vol]0.8 10*3/uLNormal0.0-0.8The [facility] Physician GroupComment on above:Performed By: #### CBC, CMP, MG #### [place] [address] USAPerformed By: #### UA #### [place] [address] USAMonocytes/100 WBC (Bld)7.5 %Normal.The [facility] Physician GroupComment on above:Performed By: #### CBC, CMP, MG #### [place] [address] USAPerformed By: #### UA #### [place] [address] USANeutrophils (Bld) [#/Vol]7.3 10*3/uLNormal1.8-7.7The [facility] Physician GroupComment on above:Performed By: #### CBC, CMP, MG #### [facility] [address] [place] [address] USAPerformed By: #### UA #### [facility] [address] [place] [address] USANeutrophils/100 WBC (Bld)71.3 %Normal.The [facility] Physician GroupComment on above:Performed By: #### CBC, CMP, MG #### [facility] [address] [place] [address] USAPerformed By: #### UA #### [facility] [address] [place] [address] USANRBC%0.1 /100{WBC}Normal0-0.5The [facility] Comment on above:Performed By: #### CBC, CMP, MG #### [facility] [address] [place] [address] USAPerformed By: #### UA #### [facility] [address] [place] [address] USAPlatelet mean volume (Bld) [Entitic vol]9.0 fLNormal 6.6-10.1The [facility] Physician GroupComment on above:Performed By: #### CBC, CMP, MG #### [facility] [address] [place] [address] USAPerformed By: #### UA #### [facility] [address] [place] [address] USAPlatelets (Bld) [#/Vol]197 10*3/iNIjrfbs525-970Lek [facility] Physician GroupComment on above:Performed By: #### CBC, CMP, MG #### [facility] [address] [place] [address] USAPerformed By: #### UA #### [facility] [address] [place] [address] USARBC (Bld) [#/Vol]4.12 10*6/uLNormal3.90-5.60The [facility] Physician GroupComment on above:Performed By: #### CBC, CMP, MG #### [facility] [address] [place] [address] USAPerformed By: #### UA #### [facility] [address] [place] [address] USAWBC (Bld) [#/Vol]10.2 10*3/uLNormal4.1-10.5The [facility] Physician GroupComment on above:Performed By: #### CBC, CMP, MG #### [facility] [address] [place] [address] USAPerformed By: #### UA #### [place] [address] USAComprehensive Metabolic Panelon 73-91-0102Hpwaunx [Mass/Vol]3.9 g/dLNormal3.5-5.7The [facility] Physician GroupComment on above: Performed By: #### CBC, BMP #### [facility] [address] [place] [address] USAPerformed By: #### UA #### [facility] [address] [place] [address] USAAlbumin/Globulin [Mass ratio]1.6 {ratio}NormalThe [facility] Physician GroupComment on above:Performed By: #### CBC, BMP #### [facility] [address] [place] [address] USAPerformed By: #### UA #### [facility] [address] [place] [address] USAALP [Catalytic activity/Vol]86 U/SZrsosw56-908Qvp [facility] Physician GroupComment on above:Performed By: #### CBC, BMP #### [facility] [address] [place] [address] USAPerformed By: #### UA #### [facility] [address] [place] [address] USAALT [Catalytic activity/Vol]15 U/LNormal7-52The [facility] Physician GroupComment on above:Performed By: #### CBC, BMP #### [place] [id number] USAPerformed By: #### UA #### [facility] [address] [place] [address] USAAnion gap [Moles/Vol]12.2 mmol/LNormal6.0-15.0The [facility] Physician GroupComment on above:Performed By: #### CBC, BMP #### [facility] [address] [place] [address] USAPerformed By: #### UA #### [facility] [address] [place] [address] USAAST [Catalytic activity/Vol]11 U/VWmy42-45Edk [facility] Physician GroupComment on above:Performed By: #### CBC, BMP #### [facility] [address] [place] [address] USAPerformed By: #### UA #### [facility] [address] [place] [address] USABilirubin [Mass/Vol]0.7 mg/dLNormal0.3-1.0The [facility] Physician GroupComment on above:Performed By: #### CBC, BMP #### [facility] [address] [place] [address] USAPerformed By: #### UA #### [place] [address] USACalcium [Mass/Vol]9.0 mg/dLNormal8.6-10.3The [facility] Physician GroupComment on above:Performed By: #### CBC, BMP #### [facility] [address] [place] [address] USAPerformed By: #### UA #### [facility] [address] [place] [address] USAChloride [Moles/Vol]102 mmol/YFsdcwb82-170Vau [facility] Physician GroupComment on above:Performed By: #### CBC, BMP #### [facility] [address] [place] [address] USAPerformed By: #### UA #### [facility] [address] [place] [address] USACO2 [Moles/Vol]27.6 mmol/SXhefcs32.0-31.0The [facility] Physician GroupComment on above:Performed By: #### CBC, BMP #### [facility] [address] [place] [address] USAPerformed By: #### UA #### [facility] [address] [place] [address] USACreatinine [Mass/Vol]1.01 mg/dLNormal0.70-1.30The [facility] Physician GroupComment on above:Performed By: #### CBC, BMP #### [facility] [address] [place] [address] USAPerformed By: #### UA #### [facility] [address] [place] [address] USACreatinine Clr Calc Etfqlbos35.09NormHendry Regional Medical Center Physician GroupComment on above:Performed By: #### CBC, BMP #### [facility] [address] [place] [address] USAPerformed By: #### UA #### [facility] [address] [place] [address] USAGFR/1.73 sq M.predicted MDRD (S/P/Bld) [Vol rate/Area] mL/min/{1.73_m2}NormalThe [facility] Physician GroupComment on above:Performed By: #### CBC, BMP #### [facility] [address] [place] [address] USAPerformed By: #### UA #### [facility] [address] [place] [address] USAGlobulin (S) [Mass/Vol]2.5 g/dLAscension Sacred Heart Bay Physician GroupComment on above:Performed By: #### CBC, BMP #### [facility] [address] [place] [address] USAPerformed By: #### UA #### [facility] [address] [place] [address] USAGlucose [Mass/Vol]120 mg/bZZcxa07-804Sqw [facility] Physician GroupComment on above:Result Comment: Random Glucose Reference Range is dependent on time and content of last meal. Glucose of more than 200 mg/dL in a nonstressed, ambulatory subject supports the diagnosis of Diabetes Mellitus. ADA recommended reference rangePerformed By: #### CBC, BMP #### [facility] [address] [place] [address] USAPerformed By: #### UA #### [place] [address] USAPotassium [Moles/Vol]4.8 mmol/LNormal3.5-5.1The [facility] Physician GroupComment on above:Performed By: #### CBC, BMP #### [facility] [address] [place] [address] USAPerformed By: #### UA #### [place] [address] USAProtein [Mass/Vol]6.4 g/dLNormal6.4-8.9The [facility] Physician GroupComment on above:Performed By: #### CBC, BMP #### [facility] [address] [place] [address] USAPerformed By: #### UA #### [place] [address] USASodium [Moles/Vol]137 mmol/UHiylok343-795Gcn [facility] Physician GroupComment on above:Performed By: #### CBC, BMP #### [place] [address] USAPerformed By: #### UA #### [facility] [address] [place] [address] USAUrea nitrogen [Mass/Vol]26 mg/dLHigh7-25The [facility] Physician GroupComment on above:Performed By: #### CBC, BMP #### [facility] [address] [place] [address] USAPerformed By: #### UA #### [place] [address] USACreatinine [Mass/volume] in Serum or PlasmaOrdered By: Talib Faustin on 71-58-0000Bwgusyrfew [Mass/Vol]Creatinine [Mass/volume] in Serum or Plasma0.70-1.30Prom[facility] Flower HospitalEosinophils Auto (Bld) [#/Vol]Ordered By: Talib Faustin on 21-96-4557Tctqhxzsirz (Bld) [#/Vol] Automated eosinophil count0.0-0.45[facility] Eosinophils/100 WBC Auto (Bld)Ordered By: rick Fuastin on 07-12-2024 Eosinophils/100 WBC (Bld)Automated eosinophil %.[facility] HospitalErythrocyte distribution width Auto (RBC) [Ratio]Ordered By: Talib Hargrove on 98-53-3909Jxmfykhuqrj distribution width (RBC) [Ratio]Erythrocyte distribution width [Ratio] by Automated count12.0-14.8[facility] Flower HospitalGlobulin Calc (S) [Mass/Vol]Ordered By: Talib Faustin on 07-12-2024 Globulin (S) [Mass/Vol]Serum globulin measurement by calculation (mass/volume) [facility] HospitalGlucose [Mass/volume] in Serum or PlasmaOrdered By: Talib Faustin on 24-01-5869Qibocxs [Mass/Vol]Glucose [Mass/volume] in Serum or PmwlgnHhrd21-839ZzgzytzcwPromedica Flower HospitalComment on above:ADA recommended reference rangeRandom Glucose Reference Range is dependent on time and content of last meal. Glucose of more than 200 mg/dL in a nonstressed, ambulatory subject supports the diagnosisof Diabetes Mellitus.Hematocrit Auto (Bld) [Volume fraction]Ordered By: Talib Faustin on 94-67-2683Balrkbxplo (Bld) [Volume fraction]Hematocrit [Volume Fraction] of Blood by Automated countLow 38.8-50.0[facility] Flower HospitalHemoglobin [Mass/volume] in Blood Ordered By: Talib Faustin on 46-09-2266Bjkfpezxes (Bld) [Mass/Vol]Hemoglobin [Mass/volume] in QnzdlAfd82.0-17.0[facility] HospitalLeukocytes [#/volume] corrected for nucleated erythrocytes in Blood by Automated coun Ordered By: Talib Faustin on 44-38-3771BRQ corrected for nucl RBC Auto (Bld) [#/Vol]Leukocytes [#/volume] corrected for nucleated erythrocytes in Blood by Automated coun4.1-10.5FFayette County Memorial HospitalLymphocytes Auto (Bld) [#/Vol]Ordered By: Talib Faustin on 49-20-0958Qdjepkiinzx (Bld) [#/Vol] Lymphocytes [#/volume] in Blood by Automated count1.00-4.8Prom[facility] HospitalLymphocytes/100 WBC Auto (Bld)Ordered By: Talib Faustin on 18-88-0452Zbhcctkazmd/100 WBC (Bld)Lymphocytes/100 leukocytes in Blood by Automated count.[facility] Auto (RBC) [Entitic mass] Ordered By: Talib Faustin on 07-46-8732OCD (RBC) [Entitic mass]MCH [Entitic mass] by Automated count27.5-35.2FFayette County Memorial HospitalMCHC Auto (RBC) [Mass/Vol]Ordered By: Talib Faustin on 79-14-4758PDHI (RBC) [Mass/Vol] MCHC [Mass/volume] by Automated count32.5-35.6FFayette County Memorial Hospital MCV Auto (RBC) [Entitic vol]Ordered By: Talib Faustin on 27-47-5506AIO (RBC) [Entitic vol]MCV [Entitic volume] by Automated count83.5-101Prom[facility]lower HospitalMagnesiumon 06-15-7206Ssbjoldrk [Mass/Vol]1.9 mg/dLNormal1.9-2.7 [facility] Physician GroupComment on above:Result Comment: PERFORMED BY: [place] [address] PATHOLOGIST SUPERVISOR MOLDING HEBER SHANNON M.D.Performed By: #### CBC, BMP #### [facility] [address] [place] [address] USAPerformed By: #### UA #### [facility] [address] [place] [address] USAMagnesium [Mass/volume] in Serum or PlasmaOrdered By: Talib Faustin on 24-79-9968Krsstjith [Mass/Vol]Magnesium [Mass/volume] in Serum or Plasma1.9-2.7FFayette County Memorial HospitalMonocytes Auto (Bld) [#/Vol] Ordered By: Talib Faustin on 85-95-1593Lzamrcrro (Bld) [#/Vol]Automated blood monocyte count0.0-0.8Prom[facility] HospitalMonocytes/100 WBC Auto (Bld)Ordered By: rick Faustin on 15-95-8513Awmpnlhnc/100 WBC (Bld)Automated monocyte %.[facility] HospitalNeutrophils Auto (Bld) [#/Vol] Ordered By: Talib Faustin on 78-02-1094Weasgycffdl (Bld) [#/Vol]Neutrophils [#/volume] in Blood by Automated count1.8-7.7FFayette County Memorial Hospital Neutrophils/100 WBC Auto (Bld)Ordered By: rick Faustin on 07-12-2024 Neutrophils/100 WBC (Bld)Automated neutrophil %.[facility] HospitalNo Panel InformationOrdered By: rick Faustin on 16-42-3306Gqhkxeeoe GFR (CKD-EPI)> 60.0 mL/MinPromedica Flower HospitalPharmacy Creatinine Clearance (Chem53.09Prom[facility] Flower HospitalNucleated erythrocytes [Presence] in Blood by Automated countOrdered By: Talib Faustin on 07-12-2024 Nucleated RBC Auto Ql (Bld)Nucleated erythrocytes [Presence] in Blood by Automated count0-0.5FFayette County Memorial HospitalPlatelet mean volume Auto (Bld) [Entitic vol]Ordered By: rick Faustin on 53-38-2677Uatgxbdy mean volume (Bld) [Entitic vol]Platelet mean volume [Entitic volume] in Blood by Automated count6.6-10.1FFayette County Memorial HospitalPlatelets Auto (Bld) [#/Vol] Ordered By: rick Faustin on 66-77-4445Csjhhedls (Bld) [#/Vol]Platelets [#/volume] in Blood by Automated ulgeh410-835XwzrzpdvuPromedica Flower Hospital Potassium [Moles/volume] in Serum or PlasmaOrdered By: Talib Faustin on 77-64-0690Pocbztkrz [Moles/Vol]Potassium [Moles/volume] in Serum or Plasma 3.5-5.1FFayette County Memorial HospitalProtein [Mass/volume] in Serum or Plasma Ordered By: Talib Faustin on 57-11-0992Rbtsoaa [Mass/Vol]Protein [Mass/volume] in Serum or Plasma6.4-8.9Prom[facility] Flower HospitalRBC Auto (Bld) [#/Vol] Ordered By: Talib Faustin on 29-27-1619RUV (Bld) [#/Vol]Erythrocytes [#/volume] in Blood by Automated count3.90-5.60[facility] Easterum or plasma albumin/globulin mass ratioOrdered By: Talib Faustin on 07-12-2024 Albumin/Globulin [Mass ratio]Serum or plasma albumin/globulin mass ratio [facility] Easterum or plasma anion gap determinationOrdered By: Talib Faustin on 79-43-4315Gnszx gap [Moles/Vol]Serum or plasma anion gap determination6.0-15.0[facility] Eastodium [Moles/volume] in Serum or PlasmaOrdered By: Talib Faustin on 89-02-1436Scjlwg [Moles/Vol]Sodium [Moles/volume] in Serum or Dgfuos021-703CskkyfukyPromedica Flower HospitalUrea nitrogen [Mass/volume] in Serum or PlasmaOrdered By: Talib Faustin on 08-13-0744Czos nitrogen [Mass/Vol]Urea nitrogen [Mass/volume] in Serum or Plasma High7-25Promedica Flower HospitalWBC Auto (Bld) [#/Vol]Ordered By: Talib Faustin on 20-20-9440CDA (Bld) [#/Vol]Leukocytes [#/volume] in Blood by Automated count4.1-10.5FFayette County Memorial HospitalANESon 04-51-5004TPTI Attestation signed by Stacey Patel MD at [...] be an additional personal documentation from me. Patient: Jeremie Bennett Procedure Information Date/Time: 07/10/24829 Procedure: PPM generator change - dual Location: [facility] / [facility]ASCULAR [facility] (Cath) Providers: Stacey Patel [...] products. Plan discussed with attending. Additional Equipment RequestsNormalUniversity of El Campo Memorial HospitalHPon [id number] Attestation signed by Stacey Patel MD at [...] be an additional personal documentation from me. [place] Consult [place] [facility] Reason for visit: gen change 07/10/2024 [...] Tobacco Use: Medium Risk (05/11/2024) Received from [facility] Patient History Smoking Tobacco Use: Former Smokeless Tobacco Use: Former Passive Exposure: Not on file Alcohol Use: Not on file Financial Resource Strain: Not on file Food Insecurity: Not on file Transportation Needs: Not on file Physical Activity: Not on file Stress: Not on file Social Connections: Not on file Intimate Partner Violence: Unknown (07/08/2023) [place] Safety & Environment Fear of Current or Ex-Partner: Not on file Emotionally Abused: Not on file Physically Abused: Not on file Sexually Abused: Not on file Physically or Sexually Abused: Not on file Depression: Not at risk (04/07/2024) Received from [facility] PHQ-2 Patient Health Questionnaire-2 Score: 0 [...] upstroke, no b (more content not included)... Corey HospitalNURSNOTEon 60-04-3144UWEBFYQUWU educated pt on d/c instructions. This included: site care, limited physical [...] wheeled off of unit with all of belongings.Corey HospitalNURSNOTECHG wipes and betadine nasal swabs completed.Normal [facility] CenterOrders Onlyon 22-29-9030Ueaszh [id number] Jeremie Bennett 1940 M Date Provider Department Center 07/10/2024 [facility] LAB [facility] Family History Problem Relation Age of Onset Coronary artery disease Mother Kidney disease Mother Heart failure Mother Family Status - Relation Status Age at MotherNormalUniversMount St. Mary HospitalCB w/ Auto DiffOrdered By: SYSTEM SYSTEM on 01-47-7183Vhmc form neutrophils/100 WBC (Bld)8.0 %High0.0-6.0 Remisol HemeComment on above:Performed By: #### [id number] #### [facility] [address], [place] [address]Myjorsqfe (Bld) [#/Vol]0.0 E9/LNormal0.0-0.2Remisol HemeComment on above:Performed By: #### [id number] #### [facility] [address], [place] [address]Tefeezqyamd (Bld) [#/Vol]0.0 E9/LNormal0.0-0.5Remisol Heme Comment on above:Performed By: #### [id number] #### [facility] [address] [place] [address] 14[address]Tqbjgbnuwuk/100 WBC (Bld)0.0 %Normal0.0-8.0Remisol HemeComment on above:Performed By: #### [id number] #### [facility] [address] [place] [address]Amyuhvuouue distribution width (RBC) [Ratio]13.9 %Normal 10.9-14.2Remisol HemeComment on above:Performed By: #### [id number] #### [facility] [address] [place] [address] 59326Pfdgrcvwya (Bld) [Volume fraction]39.7 %Bswjco63.7-49.0Remisol HemeComment on above:Performed By: #### [id number] #### [facility] [address] [place] [address] 73887Xeegfgmgrx (Bld) [Mass/Vol]13.3 g/dLLow13.5-17.5Remisol Heme Comment on above:Performed By: #### [id number] #### [facility] [address] [place] [address] 23417Xckzidmkkis (Bld) [#/Vol]2.2 E9/LNormal1.0-4.0Remisol Heme Comment on above:Performed By: #### [id number] #### [facility] [address] [place] [address] 76278Fbiuepisiof/100 WBC (Bld)20.0 %Xleggr17.0-50.0Remisol Heme Comment on above:Performed By: #### [id number] #### [facility] [address] [place] [address] 52688LSE (RBC) [Entitic mass]31.3 ocGslfmp68.0-34.0Remisol Heme Comment on above:Performed By: #### [id number] #### [facility] [address], [place] [address]PEUG (RBC) [Mass/Vol]33.4 g/dYQjginu53.4-36.0Remisol Heme Comment on above:Performed By: #### [id number] #### [facility] [address] [place] [address] 25625DNP (RBC) [Entitic vol]93.5 zAThckju87.0-100.0Remisol Heme Comment on above:Performed By: #### [id number] #### [facility] [address] [place] [address] 112[address]Grizinwqf (Bld) [#/Vol]0.6 E9/LNormal0.2-1.0Remisol HemeComment on above:Performed By: #### [id number] #### [facility] [address] [place] [address] 908[address]Yuobiutrhv/100 WBC (Bld)3.0 %High0.0-0.0Remisol HemeComment on above:Performed By: #### [id number] #### [facility] [address] [place] [address] 43[address]Xahshlresgh (Bld) [#/Vol]7.4 E9/LInvalid Interpretation Code Remisol HemeComment on above:Performed By: #### [id number] #### [facility] [address] [place] [address] 87024Glxjjutf899.0 E9/WSeyjyo538.0-500.0Remisol HemeComment on above:Performed By: #### [id number] #### [facility] [address], [place] [address]Qziyphox mean volume (Bld) [Entitic vol]9.2 fLNormal6.4-10.8 Remisol HemeComment on above:Performed By: #### [id number] #### [facility] [address] [place] [address] 514[address]WWZ (Bld) [#/Vol]4.2 E12/LLow4.3-5.9Remisol HemeComment on above:Performed By: #### [id number] #### [facility] [address], [place] [address]Kzabjbhtj neutrophils/100 WBC (Bld)62.0 %Zdlrlo98.0-75.0Remisol HemeComment on above:Performed By: #### [id number] #### [facility] [address], [place] [address]Ekbvzbx lymphocytes/100 WBC (Bld)1.0 %High0.0-0.0Remisol Heme Comment on above:Performed By: #### [id number] #### [facility] [address] [place] [address] 487[address]XBI corrected for nucl RBC Auto (Bld) [#/Vol]10.5 E9/LNormal 4.0-11.0Remisol HemeComment on above:Performed By: #### [id number] #### [facility] [address] [place] [address]HCH w/ Auto Diffon 55-13-2144TMG size Nom (Bld)NORMALInvalid Interpretation CodeFisher St. Agnes HospitalComment on above:Performed By: #### [id number] #### [facility] [address], [place] [address]IDCYJNJWTLzzcjcm By: SYSTEM SYSTEM on 07-03-2024 Albumin/Globulin [Mass ratio]1.5 {ratio}Normal1.1 - 2.2Remisol ChemALP [Catalytic activity/Vol]70 [iU]/zVohchr18 - 98 Int._Unit/LRemisol ChemALT No additional P-5'-P [Catalytic activity/Vol]24 [iU]/dNormal6 - 46 Int._Unit/L Remisol ChemAST [Catalytic activity/Vol]20 [iU]/dNormal5 - 43 Int._Unit/LRemisol ChemUrea nitrogen/Creatinine [Mass ratio]20 mg/tpOubfee30 - 20Remisol ChemCMP Ordered By: SYSTEM SYSTEM on 66-60-2931Lzejxqm [Mass/Vol]4.0 g/dLNormal3.3-5.0 Remisol ChemComment on above:Performed By: #### [id number] #### [facility] [address], [place] [address]Bkiyh gap [Moles/Vol]10 mmol/LNormal6-16Remisol ChemComment on above:Performed By: #### [id number] #### [facility] [address], [place] [address]Ohiwsspky [Mass/Vol]0.3 mg/dLNormal0.0-1.1Remisol ChemComment on above:Performed By: #### [id number] #### [facility] [address], [place] [address]Hlxvbyf [Mass/Vol]9.1 mg/dLNormal8.9-11.1Remisol ChemComment on above:Performed By: #### [id number] #### [facility] [address], [place] [address]Xhogdsug [Moles/Vol]107 mmol/LXmeolt360-125Xyheapn ChemComment on above:Performed By: #### [id number] #### [facility] [address] [place] [address]ZL6 [Moles/Vol]28 mmol/ICwuzfd10-75Qdeukhd ChemComment on above:Performed By: #### [id number] #### [facility] [address], [place] [address]Epvgxqbtjc [Mass/Vol]1.0 mg/dLNormal0.5-1.3Remisol ChemComment on above:Performed By: #### [id number] #### [facility] [address], [place] [address]Bfanbrhg (S) [Mass/Vol]2.7 g/dLNormal1.4-4.0Remisol ChemComment on above:Performed By: #### [id number] #### [facility] [address], [place] [address]Jfmntto [Mass/Vol]138 mg/pBYncnsk42-035Crgqbou ChemComment on above:Performed By: #### [id number] #### [facility] [address], [place] [address]Cdqywwchd [Moles/Vol]4.5 mmol/LNormal3.5-5.3Remisol ChemComment on above:Performed By: #### [id number] #### [facility] [address], [place] [address]Tlgfxjg [Mass/Vol]6.7 g/dLNormal6.0-7.8Remisol ChemComment on above:Performed By: #### [id number] #### [facility] [address], [place] [address]Sqddtd [Moles/Vol]140 mmol/CTlvhkv223-419Cmwwwss ChemComment on above:Performed By: #### [id number] #### [facility] [address], [place] [address]Bkpt nitrogen [Mass/Vol]20 mg/dLNormal5-21Remisol ChemComment on above:Performed By: #### [id number] #### [facility] [address], [place] [address]HRBno 75-71-5547Eqtnrym/Globulin (S) [Mass conc ratio]1.5Normal 1.1-2.2Fisher St. Agnes HospitalComment on above:Performed By: #### [id number] #### [facility] [address], [place] [address]JPL [Catalytic activity/Vol]70 Int._Unit/ROyiqfe20-88FjqdncBarnesville HospitalComment on above:Performed By: #### [id number] #### [facility] [address], [place] [address]CFT No additional P-5'-P [Catalytic activity/Vol]24 Int._Unit/L Normal6-46Barnesville HospitalComment on above:Performed By: #### [id number] #### [facility] [address], [place] [address]SVT [Catalytic activity/Vol]20 Int._Unit/LNormal5-43Fisher St. Agnes HospitalComment on above:Performed By: #### [id number] #### [facility] [address], [place] [address]Omrh nitrogen/Creatinine [Mass ratio]20 No LyrwyTdnwox12-05 Barnesville HospitalComment on above:Performed By: #### [id number] #### [facility] [address], [place] [address]KWEQMXGWOJWbiuwax By: SYSTEM SYSTEM on 50-77-3983Bwcvmhuob/100 WBC (Bld)0.0 %Normal0.0 - 2.0 %Remisol HemeMonocytes/100 WBC (Bld)6.0 %Normal4.0 - 14.0 %Remisol HemeRBC size Nom (Bld)NORMAL *NA* (07/03/24 12:00 PM)Invalid Interpretation CodeRemisol HemeMagnesiumOrdered By: SYSTEM SYSTEM on 38-35-2443Tfzrsfwug [Mass/Vol]2.0 mg/dLNormal1.3-2.4Remisol ChemComment on above:Performed By: #### [id number] #### [facility] [address], [place] [address]fRRNNcixtlj By: SYSTEM SYSTEM on 09-39-4789kAZD67 mL/min/1.73 w6Wnvmku>=59Remisol ChemComment on above:Performed By: #### [id number] #### [facility] [address], [place] [address]kd 39-20-315528Ctz Dr Arellano pt was called to schedule cardiac clearance appt. Pt stated he would rather be seen in [place], so I advised pt to call and schedule with them.NormalUnCleveland Clinic Hillcrest HospitalNo Panel Informationon 06-23-2024 [employer] Audiometry Audio indicated a mild to severe sensorineural hearing loss 250-8000 Hz, bilaterally. NOMS HealthcareNOWY HealthcareBasic Metabolic Panelon 78-26-6850Ptoql gap [Moles/Vol]8.5 mmol/LNormal6.0-15.0The Firelands Physician GroupComment on above:Performed By: #### CBC, BMP #### [facility] [address] [place] [address] USAPerformed By: #### CMP, CBC #### [facility] [address] [place] [address] USACalcium [Mass/Vol]9.0 mg/dLNormal8.6-10.3The [facility] Physician GroupComment on above:Result Comment: PERFORMED BY: [place] [address] PATHOLOGIST SUPERVISOR MOLDING HEBER SHANNON M.D.Performed By: #### CBC, BMP #### [place] [address] USAPerformed By: #### CMP, CBC #### [place] [address] USAChloride [Moles/Vol]110 mmol/LNeuf08-033Dhz [facility] Physician GroupComment on above:Performed By: #### CBC, BMP #### [facility] [address] [place] [address] USAPerformed By: #### CMP, CBC #### [place] [address] USACO2 [Moles/Vol]24.5 mmol/TMvpoep83.0-31.0The [facility] Physician GroupComment on above:Performed By: #### CBC, BMP #### [facility] [address] [place] [address] USAPerformed By: #### CMP, CBC #### [facility] [address] [place] [address] USACreatinine [Mass/Vol]0.97 mg/dLNormal0.70-1.30The [facility] Physician GroupComment on above:Performed By: #### CBC, BMP #### [facility] [address] [place] [address] USAPerformed By: #### CMP, CBC #### [facility] [address] [place] [address] USAGFR/1.73 sq M.predicted MDRD (S/P/Bld) [Vol rate/Area] mL/min/{1.73_m2}NormalThe [facility] Physician GroupComment on above:Performed By: #### CBC, BMP #### [place] [address] USAPerformed By: #### CMP, CBC #### [place] [address] USAGlucose [Mass/Vol]118 mg/lUBwoa82-686Kaa [facility] Physician GroupComment on above:Result Comment: Random Glucose Reference Range is dependent on time and content of last meal. Glucose of more than 200 mg/dL in a nonstressed, ambulatory subject supports the diagnosis of Diabetes Mellitus. ADA recommended reference rangePerformed By: #### CBC, BMP #### [place] [address] USAPerformed By: #### CMP, CBC #### [place] [address] USAPotassium [Moles/Vol]4.0 mmol/LNormal3.5-5.1The [facility] Physician GroupComment on above:Performed By: #### CBC, BMP #### [place] [address] USAPerformed By: #### CMP, CBC #### [place] [address] USASodium [Moles/Vol]139 mmol/AVzunmu616-954Txi [facility] Physician GroupComment on above:Performed By: #### CBC, BMP #### [place] [address] USAPerformed By: #### CMP, CBC #### [facility] [address] [place] [address] USAUrea nitrogen [Mass/Vol]19 mg/dLNormal7-25The [facility] Physician GroupComment on above:Performed By: #### CBC, BMP #### [place] [address] USAPerformed By: #### CMP, CBC #### [facility] [address] [place] [address] [facility] CENTERBamarshall county hospital metabolic 1998 panelon 07-78-2141Kwjya gap [Moles/Vol]8.5 mmol/L6.0 - 15.0 meq/LNOMS HealthcareCalcium [Mass/Vol]9 mg/dL8.6 - 10.3 mg/dLNOWY HealthcareChloride [Moles/Vol]110 mmol/LHigh98 - 107 mmol/L NOMS HealthcareCO2 [Moles/Vol]24.5 mmol/L21.0 - 31.0 mmol/LNOMS Healthcare Creatinine (U) [Mass/Vol]0.97 mg/dL0.70 - 1.30 mg/dLNOWY HealthcareESTIMATED GFR mL/MinNOWY HealthcareGlucose [Mass/Vol]118 mg/yMWzgc57 - 100 mg/dLNOWY HealthcareComment on above:Random Glucose Reference Range is dependent on time and content of last meal. Glucose of more than 200 mg/dL in a nonstressed, ambulatory subject supports the diagnosis of Diabetes Mellitus. ADA recommended reference range Interpretation and review of laboratory resultsAbnormalNOMS HealthcarePotassium [Moles/Vol]4 mmol/L3.5 - 5.1 mmol/LNOMS HealthcareSodium [Moles/Vol]139 mmol/L 136 - 145 mmol/LNOMS HealthcareUrea nitrogen [Mass/Vol]19 mg/dL7 - 25 mg/dLNOWY HealthcareNOWY HealthcareBasophils Auto (Bld) [#/Vol]Ordered By: Matteo Melo on 20-73-8616Kdagpkwiu (Bld) [#/Vol]Automated basophil count0.0-0.2FFayette County Memorial HospitalBasophils/100 WBC Auto (Bld)Ordered By: Matteo Melo on 83-62-2168Nwtjypvod/100 WBC (Bld)Automated basophil %.[facility] HospitalCB W Auto Differential panel (Bld)on 03-83-9647Yotbcecfp (Bld) [#/Vol] 0.1 10*3/uL0.0 - 0.2 10*3/uLNOMS HealthcareBasophils/100 WBC Manual cnt (Syn fld)0.7 %.NOMS HealthcareEosinophils (Bld) [#/Vol]0.4 10*3/uL0.0 - 0.45 10*3/uL NOM HealthcareEosinophils/100 WBC Manual cnt (Syn fld)5 %.[facility] Erythrocyte distribution width (RBC) [Ratio]13.4 %12.0 - 14.8 %[facility] Hematocrit (Bld) [Volume fraction]40.7 %38.8 - 50.0 %[facility] SystemsHemoglobin (Bld) [Mass/Vol]13.7 g/dL13.0 - 17.0 g/dLVALLEY VIEW MEDICAL CENTER HealthcareLymphocytes (Bld) [#/Vol]2.5 10*3/uL1.00 - 4.8 10*3/uLNOMS HealthcareLymphocytes/100 WBC Manual cnt (Syn fld)30.2 %.[facility] SystemsMCH (RBC) [Entitic mass]31 pg27.5 - 35.2 pg [facility] CenterHC (RBC) [Mass/Vol]33.7 g/dL32.5 - 35.6 g/dLPemiscot Memorial Health SystemsMCV (RBC) [Entitic vol]92 fL83.5 - 101 fLVALLEY VIEW MEDICAL CENTER HealthcareMonocytes (Bld) [#/Vol]0.7 10*3/uL0.0 - 0.8 10*3/uLVALLEY VIEW MEDICAL CENTER HealthcareMonocytes+Macrophages/100 WBC Manual cnt (Syn fld)8.8 %.[facility] HealthcareNeutrophils (Bld) [#/Vol]4.6 10*3/uL1.8 - 7.7 10*3/uLNOMS HealthcareNeutrophils/100 WBC Manual cnt (Syn fld)55.3 %.[facility] HealthcareNRBC0.2 /100{WBC}0 - 0.5 /100{WBC}[facility] HealthcarePlatelet mean volume (Bld) [Entitic vol]8.9 fL6.6 - 10.1 fLVALLEY VIEW MEDICAL CENTER HealthcarePlatelets (Bld) [#/Vol]234 10*3/uL150 - 450 10*3/uLNOWY HealthcareRBC LM.HPF (Urine sed) [#/Area]4.43 10*6/uL3.90 - 5.60 10*6/uLNOMS HealthcareWBC (Bld) [#/Vol]8.4 10*3/uL4.1 - 10.5 10*3/uLNOMS HealthcareWBC LM.HPF (Urine sed) [#/Area]8.4 10*3/uL4.1 - 10.5 10*3/uLNOMS HealthcareNOMS HealthcareCalcium [Mass/volume] in Serum or Plasma Ordered By: Matteo Melo on 18-56-5251Ljztkkp [Mass/Vol]Calcium [Mass/volume] in Serum or Plasma8.6-10.3FFayette County Memorial HospitalCarbon dioxide, total [Moles/volume] in Serum or PlasmaOrdered By: Matteo Melo on 60-35-3642TK5 [Moles/Vol]Carbon dioxide, total [Moles/volume] in Serum or Ncviyh67.0-31.0 [facility] HospitalChloride [Moles/volume] in Serum or Plasma Ordered By: Matteo Melo on 87-01-5108Pzowinqa [Moles/Vol]Chloride [Moles/volume] in Serum or JxrghkHscc23-065ChbblxgkbPromedica Flower Hospital Complete Blood Count Auto Diffon 93-35-8382Fnxhvgydu (Bld) [#/Vol]0.1 10*3/uL Normal0.0-0.2The [facility] Physician GroupComment on above:Result Comment: PERFORMED BY: [place] [address] PATHOLOGIST SUPERVISOR MOLDING HEBER SHANNON M.D.Performed By: #### CBC, BMP #### [facility] [address] [place] [address] USAPerformed By: #### CMP, CBC #### [facility] [address] [place] [address] USABasophils/100 WBC (Bld)0.7 %Normal.The [facility] Physician GroupComment on above:Performed By: #### CBC, BMP #### [facility] [address] [place] [address] USAPerformed By: #### CMP, CBC #### [place] [address] USAEosinophils (Bld) [#/Vol]0.4 10*3/uLNormal0.0-0.45The [facility] Physician GroupComment on above:Performed By: #### CBC, BMP #### [facility] [address] [place] [address] USAPerformed By: #### CMP, CBC #### [place] [address] USAEosinophils/100 WBC (Bld)5.0 %Normal.The [facility] Physician GroupComment on above:Performed By: #### CBC, BMP #### [place] [address] USAPerformed By: #### CMP, CBC #### [place] [address] USAErythrocyte distribution width (RBC) [Ratio]13.4 %Normal 12.0-14.8The [facility] Physician GroupComment on above:Performed By: #### CBC, BMP #### [place] [address] USAPerformed By: #### CMP, CBC #### [place] [address] USAHematocrit (Bld) [Volume fraction]40.7 %Ppjobf55.8-50.0The [facility] Physician GroupComment on above:Performed By: #### CBC, BMP #### [place] [address] USAPerformed By: #### CMP, CBC #### [place] [address] USAHemoglobin (Bld) [Mass/Vol]13.7 g/hVUltpad88.0-17.0The [facility] Physician GroupComment on above:Performed By: #### CBC, BMP #### [place] [address] USAPerformed By: #### CMP, CBC #### [place] [address] USALymphocytes (Bld) [#/Vol]2.5 10*3/uLNormal1.00-4.8The [facility] Physician GroupComment on above:Performed By: #### CBC, BMP #### [place] [address] USAPerformed By: #### CMP, CBC #### [place] [address] USALymphocytes/100 WBC (Bld)30.2 %Normal.The [facility] Physician GroupComment on above:Performed By: #### CBC, BMP #### [place] [address] USAPerformed By: #### CMP, CBC #### [place] [address] USAMCH (RBC) [Entitic mass]31.0 zxVrruhg21.5-35.2The [facility] Physician GroupComment on above:Performed By: #### CBC, BMP #### [place] [address] USAPerformed By: #### CMP, CBC #### [place] [address] USAMCV (RBC) [Entitic vol]92.0 hAOmelrq42.5-101The [facility] Physician GroupComment on above:Performed By: #### CBC, BMP #### [place] [address] USAPerformed By: #### CMP, CBC #### [place] [address] USAMean Corpuscular HGB Conc33.7 g/jRTwtnbb24.5-35.6The [facility] Physician GroupComment on above:Performed By: #### CBC, BMP #### [facility] [address] [place] [address] USAPerformed By: #### CMP, CBC #### [place] [address] USAMonocytes (Bld) [#/Vol]0.7 10*3/uLNormal0.0-0.8The [facility] Physician GroupComment on above:Performed By: #### CBC, BMP #### [facility] [address] [place] [address] USAPerformed By: #### CMP, CBC #### [facility] [address] [place] [address] USAMonocytes/100 WBC (Bld)8.8 %Normal.The [facility] Physician GroupComment on above:Performed By: #### CBC, BMP #### [facility] [address] [place] [address] USAPerformed By: #### CMP, CBC #### [facility] [address] [place] [address] USANeutrophils (Bld) [#/Vol]4.6 10*3/uLNormal1.8-7.7The [facility] Physician GroupComment on above:Performed By: #### CBC, BMP #### [place] [address] USAPerformed By: #### CMP, CBC #### [place] [address] USANeutrophils/100 WBC (Bld)55.3 %Normal.The [facility] Physician GroupComment on above:Performed By: #### CBC, BMP #### [facility] [address] [place] [address] USAPerformed By: #### CMP, CBC #### [facility] [address] [place] [address] USANRBC%0.2 /100{WBC}Normal0-0.5The [facility] Physician Group Comment on above:Performed By: #### CBC, BMP #### [place] [address] USAPerformed By: #### CMP, CBC #### [facility] [address] [place] [address] USAPlatelet mean volume (Bld) [Entitic vol]8.9 fLNormal 6.6-10.1The [facility] Physician GroupComment on above:Performed By: #### CBC, BMP #### [facility] [address] [place] [address] USAPerformed By: #### CMP, CBC #### [facility] [address] [place] [address] USAPlatelets (Bld) [#/Vol]234 10*3/eUGtqjem594-864Gkp [facility] Physician GroupComment on above:Performed By: #### CBC, BMP #### [facility] [address] [place] [address] USAPerformed By: #### CMP, CBC #### [facility] [address] [place] [address] USARBC (Bld) [#/Vol]4.43 10*6/uLNormal3.90-5.60The [facility] Physician GroupComment on above:Performed By: #### CBC, BMP #### [facility] [address] [place] [address] USAPerformed By: #### CMP, CBC #### [facility] [address] [place] [address] USAWBC (Bld) [#/Vol]8.4 10*3/uLNormal4.1-10.5The [facility] Physician GroupComment on above:Performed By: #### CBC, BMP #### [facility] [address] [place] [address] USAPerformed By: #### CMP, CBC #### [facility] [address] [place] [address] USACreatinine [Mass/volume] in Serum or PlasmaOrdered By: Matteo Melo on 34-90-1365Vcfbbzzojm [Mass/Vol]Creatinine [Mass/volume] in Serum or Plasma0.70-1.30[facility] Flower HospitalECG 12 lead ECGon 60-53-9120YGB 12 lead [facility] [place] [address] [place] [address] Electrocardiograph Report Signed Patient: Jeremie Benntet MR#: [id number] 812 : 1940 Acct:[id number] Age/Sex: 83 / M ADM Date: 06/22/24 Loc: Room: Type: [facility] Attending Dr: Matteo Melo MD Ordering Provider: [...] PM Referred By: Electronically Signed By: AMILCAR SANTIAOG MD Transcribed By: MUS Signed By Amilcar Santiago MD 0 06/23/[address] [place] [address] Physician GroupECG 12 [place] [address] Electrocardiograph Report Signed Patient: Jeremie Bennett MR#: [id number] : 1940 Acct:[id number] Age/Sex: 83 / M ADM Date: 06/22/24 Loc: Room: Type: [facility] Attending Dr: Matteo Melo MD Ordering Provider: [...] Signed By Amilcar Santiago MD 0 06/23/[address] [place] [address] Physician GroupEosinophils Auto (Bld) [#/Vol] Ordered By: Matteo Melo on 63-53-1053Pumjwoiokye (Bld) [#/Vol]Automated eosinophil count0.0-0.45Prom[facility] Flower HospitalEosinophils/100 WBC Auto (Bld)Ordered By: Matteo Melo on 79-23-0719Mglvzgutnqt/100 WBC (Bld) Automated eosinophil %.[facility] HospitalErythrocyte distribution width Auto (RBC) [Ratio]Ordered By: Matteo Melo on 39-87-5679Rpbqspjcwzv distribution width (RBC) [Ratio]Erythrocyte distribution width [Ratio] by Automated count12.0-14.8Prom[facility] HospitalGlucose [Mass/volume] in Serum or PlasmaOrdered By: Matteo Melo on 24-78-3402Yhmtaqs [Mass/Vol] Glucose [Mass/volume] in Serum or EjytcrWocu39-248PzcegertvPromedica Flower HospitalComment on above:ADA recommended reference rangeRandom Glucose Reference Range is dependent on time and content of last meal. Glucose of more than 200 mg/dL in a nonstressed, ambulatory subject supports the diagnosisof Diabetes Mellitus.Hematocrit Auto (Bld) [Volume fraction]Ordered By: Matteo Melo on 27-59-7396Ukmisiilho (Bld) [Volume fraction]Hematocrit [Volume Fraction] of Blood by Automated count38.8-50.0[facility] HospitalHemoglobin [Mass/volume] in BloodOrdered By: Matteo Melo on 15-50-9601Wuletfjmqm (Bld) [Mass/Vol]Hemoglobin [Mass/volume] in Blood13.0-17.0Prom[facility] HospitalLeukocytes [#/volume] corrected for nucleated erythrocytes in Blood by Automated counOrdered By: Matteo Melo on 25-99-1694HUA corrected for nucl RBC Auto (Bld) [#/Vol]Leukocytes [#/volume] corrected for nucleated erythrocytes in Blood by Automated coun4.1-10.5FFayette County Memorial HospitalLymphocytes Auto (Bld) [#/Vol]Ordered By: Matteo Melo on 49-74-6771Xfkwxysbuur (Bld) [#/Vol] Lymphocytes [#/volume] in Blood by Automated count1.00-4.8[facility] HospitalLymphocytes/100 WBC Auto (Bld)Ordered By: Matteo Melo on 49-26-1273Bxllpwlfjot/100 WBC (Bld)Lymphocytes/100 leukocytes in Blood by Automated count.[facility] HospitalMCH Auto (RBC) [Entitic mass] Ordered By: Matteo Melo on 14-14-5812OHT (RBC) [Entitic mass]MCH [Entitic mass] by Automated count27.5-35.2FFayette County Memorial HospitalMCHC Auto (RBC) [Mass/Vol]Ordered By: Matteo Melo on 93-53-9317DZXD (RBC) [Mass/Vol]MCHC [Mass/volume] by Automated count32.5-35.6FFayette County Memorial HospitalMCV Auto (RBC) [Entitic vol]Ordered By: Matteo Melo on 73-42-5343UDT (RBC) [Entitic vol]MCV [Entitic volume] by Automated count83.5-101Prom[facility] Flower HospitalMonocytes Auto (Bld) [#/Vol]Ordered By: Matteo Melo on 41-34-5644Jamirqrsl (Bld) [#/Vol]Automated blood monocyte count0.0-0.8[facility] HospitalMonocytes/100 WBC Auto (Bld)Ordered By: Matteo Melo on 71-87-2444Hyfiavzbs/100 WBC (Bld)Automated monocyte %.[facility] HospitalNeutrophils Auto (Bld) [#/Vol]Ordered By: Matteo Melo on 06-22-2024 Neutrophils (Bld) [#/Vol]Neutrophils [#/volume] in Blood by Automated count 1.8-7.7FFayette County Memorial HospitalNeutrophils/100 WBC Auto (Bld)Ordered By: Matteo Melo on 91-02-0431Wvawpqdmnyq/100 WBC (Bld)Automated neutrophil %. [facility] HospitalNo Panel InformationOrdered By: Matteo Melo on 69-05-0861Quytzglsq GFR (CKD-EPI)> 60.0 mL/MinPromedica Flower HospitalPharmacy Creatinine Clearance (ChemN/[facility] Nucleated erythrocytes [Presence] in Blood by Automated countOrdered By: Matteo Melo on 06-76-3612Bjvwcdcnx RBC Auto Ql (Bld)Nucleated erythrocytes [Presence] in Blood by Automated count0-0.5FFayette County Memorial HospitalPlatelet mean volume Auto (Bld) [Entitic vol]Ordered By: Matteo Melo on 45-89-5694[place] mean volume (Bld) [Entitic vol]Platelet mean volume [Entitic volume] in Blood by Automated count6.6-10.1FFayette County Memorial HospitalPlatelets Auto (Bld) [#/Vol]Ordered By: Matteo Melo on 45-21-7188Aqwemcmpg (Bld) [#/Vol]Platelets [#/volume] in Blood by Automated yrmwd816-241PvnnmyanuPromedica Flower Hospital Potassium [Moles/volume] in Serum or PlasmaOrdered By: Matteo Melo on 99-73-6284Kjghgcsww [Moles/Vol]Potassium [Moles/volume] in Serum or Plasma 3.5-5.1FFayette County Memorial HospitalRBC Auto (Bld) [#/Vol]Ordered By: Matteo Melo on 83-99-3725RMH (Bld) [#/Vol]Erythrocytes [#/volume] in Blood by Automated count3.90-5.60[facility] Easterum or plasma anion gap determinationOrdered By: Matteo Melo on 03-34-7643Znndo gap [Moles/Vol] Serum or plasma anion gap determination6.0-15.0[facility] Sodium [Moles/volume] in Serum or PlasmaOrdered By: Matteo Melo on 06-22-2024 Sodium [Moles/Vol]Sodium [Moles/volume] in Serum or Igvpqk810-949OoniflzipPromedica Flower HospitalUrea nitrogen [Mass/volume] in Serum or PlasmaOrdered By: Matteo Melo on 66-08-1173Choy nitrogen [Mass/Vol]Urea nitrogen [Mass/volume] in Serum or Plasma7-25Prom[facility] Flower HospitalWBC Auto (Bld) [#/Vol] Ordered By: Matteo Melo on 72-54-4398FQK (Bld) [#/Vol]Leukocytes [#/volume] in Blood by Automated count4.1-10.5FDelaware County Hospitalurgical pathology studyon 94-72-8613Earrglxg pathology studyPathology report.total SEE COMMENT Surgical Pathology Case: [id number] Authorizing Provider: Mary Schneider MD Collected: 06/05/2024 1609 Ordering Location: [facility] Received: 06/05/2024 [facility] Pathologist: Alessandro Arzate DDS Specimen: LYMPH NODE BIOPSY Path report.final diagnosis SEE COMMENT Lymph node, core biopsy: - Metastatic non-keratinizing squamous cell carcinoma, see note. 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 P16 by immunohistochemistry: Equivocal. 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 Reference Range (p16): Negative: <50% strong nuclear [...] is submitted in toto in one cassette. [facility] AP ASR DISCLAIMER One or more of the reagents used to perform assays on this specimen MAY have contained components considered to be analyte specific reagents (ASR's). ASR's have not been cleared or approved by the U.S. Food and Drug Administration. These assays were developed and their performance characteristics determined by the Department of Pathology at [facility]. The FDA does not require this test to go through premarket FDA review. This test is used for clinical purposes. It should not be regarded as investigational or for research. This laboratory is certified under the Clinical Laboratory Improvement Amendments (CLIA) as qualified to perform high complexity clinical laboratory testing. The assays were performed with appropriate positive and negative controls which stained appropriately.Regional Medical CenterUS GUIDED BIOPSY LYMPH NODE SUPERFICIALon 03-30-0582UY GUIDED BIOPSY LYMPH NODE SUPERFICIALInterpreted By: Gaby Perez and Guirguis James STUDY: US GUIDED BIOPSY LYMPH NODE SUPERFICIAL; 06/05/2024 1:53 pm INDICATION: Signs/Symptoms:left neck enlarged lymph node seen on PET. COMPARISON: PET-CT dated 03/27/2024 ACCESSION NUMBER(S): [id number] ORDERING CLINICIAN: MARY SCHNEIDER TECHNIQUE: INTERVENTIONALIST(S): MD [...] intravenous fentanyl 50mcg and versed 0.5mg from 2396-4821. The physician was assisted by an independent [...] findings as stated. Performed and dictated at [facility]. MACRO: None. Signed by: Gaby Perez 06/05/2024 9:02 PM Dictation workstation: [id number] Medical CenterUS guidance for percutaneous biopsy of Lymph nodeon . Status post successful ultrasound guided core needle biopsy of an enlarged left cervical chain pathologic appearing lymph node. Specimen(s) Sent to pathology. I was present for and/or performed the critical portions of the procedure and immediately available throughout the entire procedure. I personally reviewed the image(s) / study and interpretation. I agree with the findings as stated. Performed and dictated at [facility]. MACRO: None. Signed by: Gaby Perez 06/05/2024 9:02 PM Dictation workstation: [id number] By: Gaby Perez and Guirguis James STUDY: US GUIDED BIOPSY LYMPH NODE SUPERFICIAL; 06/05/2024 1:53 pm INDICATION: Signs/Symptoms:left neck enlarged lymph node seen on PET. COMPARISON: PET-CT dated 03/27/2024 ACCESSION NUMBER(S): [id number] ORDERING CLINICIAN: MARY SCHNEIDER TECHNIQUE: INTERVENTIONALIST(S): MD [...] intravenous fentanyl 50mcg and versed 0.5mg from 6181-5514. The physician was assisted by an independent [...] no immediate complications. Specimen(s) sent to pathology. Gaby Hawkins MD - 06/05/2024 Interpreted By: Gaby Perez and Guirguis James STUDY: US GUIDED BIOPSY LYMPH NODE SUPERFICIAL; 06/05/2024 1:53 pm INDICATION: Signs/Symptoms:left neck enlarged lymph node seen on PET. COMPARISON: PET-CT dated 03/27/2024 ACCESSION NUMBER(S): [id number] ORDERING CLINICIAN: MARY SCHNEIDER TECHNIQUE: INTERVENTIONALIST(S): MD [...] intravenous fentanyl 50mcg and versed 0.5mg from 8404-5921. The physician was assisted by an independent [...] findings as stated. Performed and dictated at [facility]. MACRO: None. Signed by: Gaby Perez 06/05/2024 9:02 PM Dictation workstation: [id number] [facility] Work Phone: Radiology Study observation (narrative)[facility] Work Phone: US guidance for percutaneous biopsy of Lymph node Ordered By: Gaby Perez on 69-47-8690DaodxpjcnzOhioHealth Shelby Hospital Work Phone: nm TRANSFER OF OUTSIDE FILMSon 15-76-4383WM TRANSFER OF OUTSIDE FILMSOutside images for comparison or treatment purposes, not interpreted by Radiologists.NormalUnHolzer Health Systemtudy Interpretation of outside studyon 57-68-7436Wdirwmt images for comparison or treatment purposes, not interpreted by Radiologists.IMAGINGBlood type and Indirect antibody screen panel (Bld)on 74-40-1046BOU group Nom (Bld)AUnOhioHealth Shelby HospitalBlood group antibody screen QlNegativeUnUniversity Hospitals Elyria Medical Center Ag Ql (Bld)Positive Doctors HospitalUnOhioHealth Shelby HospitalABO group Nom (Bld)ANoMemorial Health System Selby General HospitalComment on above:Order Comment: Patient admitted for surgery associated with significant blood loss OR per blood bank request.Performed By: #### 10481-3 #### TING Knox ([id number]) [facility] ([facility]) [address] [place], [place] [address]Cnurm group antibody screen QlNegativeRegional Medical CenterComment on above:Order Comment: Patient admitted for surgery associated with significant blood loss OR per blood bank request.Performed By: #### 74634-4 #### TING Knox ([id number]) [facility] ([facility]) [address] [place], [place] [address]Y Ag Ql (Bld)PositiveRegional Medical CenterComment on above:Order Comment: Patient admitted for surgery associated with significant blood loss OR per blood bank request.Performed By: #### 54496-2 #### TING Knox ([id number]) [facility] ([facility]) [address] [place], [place] [address]Tiegptx Test strip manual (d) [Mass/Vol]on 05-11-2024 Glucose [Mass/Vol]128 mg/jWMjmz99 - 99 mg/dLUnOhioHealth Shelby Hospital Interpretation and review of laboratory resultsAbWVUMedicine Barnesville HospitalGlucose [Mass/Vol]128 mg/iDFkqs93-[address] [facility] HospitalComment on above:Performed By: #### 2341-6 #### TING Knox ([id number]) [facility] ([facility]) [address] [place], [place] [address]Hfpwott [Mass/Vol]120 mg/uADvna87 - 99 mg/dLUnOhioHealth Shelby HospitalComment on above:RN NOTIFIEDInterpretation and review of laboratory resultsAbWVUMedicine Barnesville HospitalGlucose [Mass/Vol]120 mg/lVWtvg95-80DuebgkimxbWayne HealthCare Main CampusComment on above:Result Comment: RN NOTIFIEDPerformed By: #### 2341-6 #### TING Knox ([id number]) [facility] ([facility]) [address] [place], [place] [address]Rbzfpfiv pathology studyon 80-85-7017Pieluedp pathology study Pathology report.total SEE COMMENT Surgical Pathology Case: [id number] Authorizing Provider: Mary Schneider MD Collected: 05/11/202402 Ordering Location: [facility] Received: 05/11/[address] [place], [place] [address] Pathologist: Asuncion Quintanilla MD PhD Intraop: [...] toto in 1 cassette for frozen analysis. SXG/GEORGETTE B. Received fresh for intraoperative consultation, labeled with the patient's name and hospital number and RIGHT BASE OF TONGUE #2 normal , are multiple fragments of red-wilcox soft tissue measuring 1.0 x 0.9 x 0.3 cm in aggregation. The specimen is submitted in toto in 1 cassette for frozen analysis. SXG/GEORGETTE C: Received in formalin, labeled with the patient's name and hospital number and RIGHT BASE OF TONGUE , are multiple fragments of red-wilcox, soft tissue aggregating to 2.4 x 0.4 x 0.3 cm. The specimenis submitted in toto in one cassette. RIGO [...] invasion. Intraoperative Consult Pathologist(s): Carmel Patel MD travel sales consultant: Dr. Alessandro Arzate. DANIEL AP ASR DISCLAIMER One or more of the reagents used to perform assays on this specimen MAY have contained components considered to be analyte specific reagents (ASR's). ASR's have not been cleared or approved by the U.S. Food and Drug Administration. These assays were developed and their performance characteristics determined by the Department of Pathology at [facility]. The FDA does not require this test to go through premarket FDA review. This test is used for clinical purposes. It should not be regarded as investigational or for research. This laboratory is certified under the Clinical Laboratory Improvement Amendments (CLIA) as qualified to perform high complexity clinical laboratory testing. 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]VERAB/VERIFY ABORHon 95-35-9260TJZ group Nom (Bld)ANormalUOur Lady of Mercy HospitalComment on above:Performed By: #### VERAB #### TING Knox ([id number]) [facility] [address] [place], [place] [address]C Ag Ql (Bld)PositiveNormalUniMercy Health Tiffin HospitalComment on above:Performed By: #### VERAB #### TING Knox ([id number]) [facility] ([facility]) [address] [place], [place] [address]Aeucrj ABO/Rh Group Test (VERAB)on 83-91-5635CWT group Nom (Bld)AUnUniversity Hospitals Elyria Medical Center Ag Ql (Bld)PositiveUnOhioHealth Shelby HospitalUnOhioHealth Shelby HospitalOffice Visiton 70-30-2056Vlbrhd-up [id number] Jeremie Bennett 1940 M Date Provider Department Center 04/25/2024 STACEY ERNANDEZ [facility] Family History Problem Relation Age of Onset Coronary artery disease Mother Kidney disease Mother Heart failure Mother Family Status - Relation Status Age at Mother Level of Service:[address] [place] OFFICE/OUTPATIENT NEW MODERATE MDM 45 MINUTESNormal [facility] CenterAmbulatory Visit Summaryon 04-17-2024 Ambulatory Visit SummaryAmbulatory Visit Summary JEREMIE BENNETT :1940 Visit Date:04/17/2024 Ambulatory Visit Instructions Your Diagnosis Type 2 diabetes mellitus with hypercholesterolemia BMI 30.0-30.9,adult Exogenous obesity Former smoker Chronic GERD 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 Discharge Vitals Temperature (Oral) 36.3 ???C Heart Rate (Peripheral) 66 Respiratory Rate 16 Blood Pressure 118/72 Height 160 cm Height 63 in Weight 78.7 kg Weight 173.504 lb BMI 30.74 What to do next Scheduled Follow-Up Appointments Wednesday 2:30 PM EDT With: Where: [address] [address]- Wednesday 3:30 PM EDT With: Allison CASON, Demetrius Rosa Where: [address] [address]- Medications What How Much When [...] fluticasone nasal (fluticasone Nasal 0.05 mg/ inh [place]) See instructions USE 1 SPRAY IN BOTH [...] By Mouth Every day Unchanged Misc Prescription ([facility]) See instructions one touch ultra test strips test sugars once a day Unchanged Misc Prescription (Misc DME Prescription) See instructions one touch ultra lancets Use totest sugars once a day Unchanged multivitamin with [...] you are currently receivin (more content not included)...NormalBarnesville HospitalCBC w/ Auto Diffon 04-17-2024 Basophils/100 WBC (Bld)0.8 %Normal0.0-2.0Barnesville HospitalComment on above:Performed By: #### [id number] #### [facility] [address] [place] [address]Ldzhwogwz/Leukocytes Auto (Bld) [Pure # fraction]0.1 E9/LNormal 0.0-0.2FSelect Medical Specialty Hospital - CantonComment on above:Performed By: #### [id number] #### [facility] [address] [place] [address]Prwpkrahioe (Bld) [#/Vol]0.4 E9/LNormal0.0-0.5FSelect Medical Specialty Hospital - CantonComment on above:Performed By: #### [id number] #### [facility] [address] [place] [address]Thvffnjlalj/100 WBC (Bld)4.6 %Normal0.0-8.0Barnesville HospitalComment on above:Performed By: #### [id number] #### [facility] [address] [place] [address] 15[address]Bwnhtdxbxes distribution width (RBC) [Ratio]14.0 %Normal 10.9-14.2FSelect Medical Specialty Hospital - CantonComment on above:Performed By: #### [id number] #### [facility] [address] [place] [address] 20[address]Ixcktaweqd (Bld) [Volume fraction]43.7 %Seistz92.7-49.0Barnesville HospitalComment on above:Performed By: #### [id number] #### [facility] [address] [place] [address]Jayrocploa (Bld) [Mass/Vol]14.5 g/zZQpzfro86.5-17.5FSelect Medical Specialty Hospital - CantonComment on above:Performed By: #### [id number] #### [facility] [address] [place] [address]Oblybczgwcr (Bld) [#/Vol]2.0 E9/LNormal1.0-4.0Barnesville HospitalComment on above:Performed By: #### [id number] #### [facility] [address] [place] [address]Iubisocvnyn/100 WBC (Bld)22.4 %Npsvnj56.0-50.0Barnesville HospitalComment on above:Performed By: #### [id number] #### [facility] [address] [place] [address] 930[address]CVW (RBC) [Entitic mass]31.2 ceFsprhe44.0-34.0Barnesville HospitalComment on above:Performed By: #### [id number] #### [facility] [address] [place] [address] 29[address]PWCO (RBC) [Mass/Vol]33.2 g/nFRdbiui00.4-36.0Barnesville HospitalComment on above:Performed By: #### [id number] #### [facility] [address] [place] [address] 620[address]UVO (RBC) [Entitic vol]94.2 eGLhfikq06.0-100.0Barnesville HospitalComment on above:Performed By: #### [id number] #### [facility] [address] [place] [address] 97[address]Ggwdudofi (Bld) [#/Vol]0.7 E9/LNormal0.2-1.0Barnesville HospitalComment on above:Performed By: #### [id number] #### [facility] [address] [place] [address] 832[address]Vgfzdohxbxu (Bld) [#/Vol]5.7 E9/LNormal2.0-7.5FSelect Medical Specialty Hospital - CantonComment on above:Performed By: #### [id number] #### [facility] [address] [place] [address] 467[address]Jbtonmllkjo/100 WBC (Bld)64.7 %Rvtvda05.0-75.0Barnesville HospitalComment on above:Performed By: #### [id number] #### [facility] [address] [place] [address]66[address]Kbcrcewv mean volume (Bld) [Entitic vol]9.2 fLNormal6.4-10.8 Barnesville HospitalComment on above:Performed By: #### [id number] #### [facility] [address] [place], [place] [address]Yevytimjs (Bld) [#/Vol]243.0 E9/FYovqcb165.0-500.0Barnesville HospitalComment on above:Performed By: #### [id number] #### [facility] [address] [place] [address]NXB (Bld) [#/Vol]4.6 E12/LNormal4.3-5.9Barnesville HospitalComment on above:Performed By: #### [id number] #### [facility] [address] [place] [address]XWP corrected for nucl RBC Auto (Bld) [#/Vol]8.9 E9/LNormal 4.0-11.0Barnesville HospitalComment on above:Performed By: #### [id number] #### [facility] [address] [place] [address] 213[address]EBUKFULDNXncoefy By: SYSTEM SYSTEM on 09-81-9271Nzhdjje [Mass/Vol]4.3 g/dLNormal3.3 - 5.0 gm/dLRemisol ChemAlbumin DL <= 20 mg/L (U) [Mass/Vol]0.7 mg/dLNormal0.0 - 1.9 mg/dLRemisol ChemAlbumin/Globulin [Mass ratio]1.7 {ratio}Normal1.1 - 2.2Remisol ChemALP [Catalytic activity/Vol]82 [iU]/pPykwqt51 - 98 Int._Unit/LRemisol ChemALT No additional P-5'-P [Catalytic activity/Vol]17 [iU]/dNormal6 - 46 Int._Unit/LRemisol ChemAnion gap [Moles/Vol] 10 mmol/LNormal6 - 16 mEq/LRemisol ChemAST [Catalytic activity/Vol]18 [iU]/d Normal5 - 43 Int._Unit/LRemisol ChemBilirubin [Mass/Vol]0.6 mg/dLNormal0.0 - 1.1 mg/dLRemisol ChemCalcium [Mass/Vol]9.7 mg/dLNormal8.9 - 11.1 mg/dLRemisol Chem Chloride [Moles/Vol]108 mmol/TDtjkfa563 - 111 mmol/LRemisol ChemCO2 [Moles/Vol] 27 mmol/YDdrsho95 - 31 mmol/LRemisol ChemCreatinine [Mass/Vol]1.0 mg/dLNormal0.5 - 1.3 mg/dLRemisol YyecaLRZ05 mL/min/1.73 x1Riqova>=59mL/min/1.73 z8Rlgfrsq ChemGlobulin (S) [Mass/Vol]2.5 g/dLNormal1.4 - 4.0 gm/dLRemisol ChemGlucose [Mass/Vol]145 mg/yJMcqaij05 - 199 mg/dLRemisol ChemPotassium [Moles/Vol]4.2 mmol/LNormal3.5 - 5.3 mmol/LRemisol ChemProtein [Mass/Vol]6.8 g/dLNormal6.0 - 7.8 gm/dLRemisol ChemSodium [Moles/Vol]141 mmol/JGmzvdn795 - 145 mmol/LRemisol ChemUrea nitrogen [Mass/Vol]22 mg/dLHigh5 - 21 mg/dLRemisol ChemUrea nitrogen/Creatinine [Mass ratio]22 mg/qbXlst04 - 20Remisol ChemCHEMISTRYOrdered By: Isabel Cuellar on 07-40-1809TfT1f (Bld) [Mass fraction]6.5 %High<=5.9%[facility] ChemAutoSSCMPon 20-26-7456Iktfywj [Mass/Vol]4.3 g/dLNormal3.3-5.0Barnesville HospitalComment on above:Performed By: #### [id number] #### [facility] [address] [place], [place] [address]Mjjdmkw/Globulin (S) [Mass conc ratio]1.2Licmym4.1-2.2FSelect Medical Specialty Hospital - CantonComment on above:Performed By: #### [id number] #### [facility] [address] [place], [place] [address]TKT [Catalytic activity/Vol]82 Int._Unit/OBiqqfr87-92TgutfsBarnesville HospitalComment on above:Performed By: #### [id number] #### [facility] [address] [place], [place] [address]UDB No additional P-5'-P [Catalytic activity/Vol]17 Int._Unit/L Normal6-46Barnesville HospitalComment on above:Performed By: #### [id number] #### [facility] [address] [place], [place] [address]Ermya gap [Moles/Vol]10 mmol/LNormal6-16Barnesville HospitalComment on above:Performed By: #### [id number] #### [facility] [address] [place], [place] [address]XSP [Catalytic activity/Vol]18 Int._Unit/LNormal5-43Barnesville HospitalComment on above:Performed By: #### [id number] #### [facility] [address] [place], [place] [address]Ogsoyests [Mass/Vol]0.6 mg/dLNormal0.0-1.1FSelect Medical Specialty Hospital - CantonComment on above:Performed By: #### [id number] #### [facility] [address] [place], [place] [address]Zjdweyz [Mass/Vol]9.7 mg/dLNormal8.9-11.1FSelect Medical Specialty Hospital - CantonComment on above:Performed By: #### [id number] #### [facility] [address] [place], [place] [address]Ypeteeza [Moles/Vol]108 mmol/QArbkrz239-554ArltvgBarnesville HospitalComment on above:Performed By: #### [id number] #### [facility] [address] [place], [place] [address]ON0 [Moles/Vol]27 mmol/LKcdigz73-58RbgtzkBarnesville Hospital Comment on above:Performed By: #### [id number] #### [facility] [address] [place], [place] [address]Twdsvuesfe [Mass/Vol]1.0 mg/dLNormal0.5-1.3FSelect Medical Specialty Hospital - CantonComment on above:Performed By: #### [id number] #### [facility] [address], [place] [address]Iqyzpvbl (S) [Mass/Vol]2.5 g/dLNormal1.4-4.0Barnesville HospitalComment on above:Performed By: #### [id number] #### [facility] [address], [place] [address]Tckfsod [Mass/Vol]145 mg/tHVhzepb12-836FivivwBarnesville HospitalComment on above:Performed By: #### [id number] #### [facility] [address], [place] [address]Bcrbjngin [Moles/Vol]4.2 mmol/LNormal3.5-5.3FSelect Medical Specialty Hospital - CantonComment on above:Performed By: #### [id number] #### [facility] [address], [place] [address]Opsjltx [Mass/Vol]6.8 g/dLNormal6.0-7.8Barnesville HospitalComment on above:Performed By: #### [id number] #### [facility] [address], [place] [address]Zkugmg [Moles/Vol]141 mmol/BEhaowz284-593BmrerkBarnesville HospitalComment on above:Performed By: #### [id number] #### [facility] [address], [place] [address]Okgg nitrogen [Mass/Vol]22 mg/dLHigh5-21Barn[facility]ville HospitalComment on above:Performed By: #### [id number] #### [facility] [address], [place] [address]Prol nitrogen/Creatinine [Mass ratio]22 No JraysQijl79-92YxzmkzBarnesville HospitalComment on above:Performed By: #### [id number] #### [facility] [address], [place] [address]Wfwujz Medicine Office/Clinic Noteon 92-35-9596Wbgbhc Medicine Office/Clinic NoteHigh Point Hospital Medicine Office/Clinic Note HPI Staff Jeremie is [...] a PET scan. 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 The primary [...] a referral to Dr. Marlene Schneider in [place] for further evaluation. 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 Ordered: influenza virus vaccine, inactivated, 0.5 mL, Susp-Inj, IntraMuscular, Once, Stop date 04/17/24 12:00:00 EST, Routine, Start date 04/17/24 12:00:00 EST Body Mass Index (BMI) documented 3008F CBC w/ Auto Diff Comprehensive Metabolic Panel Current tobacco non-user 1036F Depression Screening Negative 3352F HgbA1c Influenza immunization administered or previously received 4274F Lab Specimen Collect 51533 Microalbumin Level Urine Most recent diastolic blood pressure <80 mm Hg 3078F Patient screen for fall risk: no falls in last year or 1 fall with no injury in last year 1101F Systolic BP <130 mm Hg (Most Recent) 3074F 4. Former smoker (Z87.891: Personal history of nicotine dependence) Please continue not to smoke. Ordered: influe (more content not included)...[place] HospitalComment on above:Result Comment: Electronically Signed By: Allison CASON, Demetrius Rosa\.br\Date and Time Signed: 04/17/24 12:20 ESTHEMATOLOGYOrdered By: SYSTEM SYSTEM on 15-40-3506Vgwrjjzco/100 WBC (Bld)0.8 %Normal0.0 - 2.0 %Remisol Heme Basophils/Leukocytes Auto (Bld) [Pure # fraction]0.1 E9/LNormal0.0 - 0.2 E9/L Remisol HemeEosinophils (Bld) [#/Vol]0.4 E9/LNormal0.0 - 0.5 E9/LRemisol Heme Eosinophils/100 WBC (Bld)4.6 %Normal0.0 - 8.0 %Remisol HemeErythrocyte distribution width (RBC) [Ratio]14.0 %Putjhl12.9 - 14.2 %Remisol HemeHematocrit (Bld) [Volume fraction]43.7 %Lisecp10.7 - 49.0 %Remisol HemeHemoglobin (Bld) [Mass/Vol]14.5 g/lDVnsngo71.5 - 17.5 gm/dLRemisol HemeLymphocytes (Bld) [#/Vol] 2.0 E9/LNormal1.0 - 4.0 E9/LRemisol HemeLymphocytes/100 WBC (Bld)22.4 %Normal 14.0 - 50.0 %Remisol HemeMCH (RBC) [Entitic mass]31.2 scFlatky91.0 - 34.0 pg Remisol HemeMCHC (RBC) [Mass/Vol]33.2 g/gYQkxdze62.4 - 36.0 gm/dLRemisol HemeMCV (RBC) [Entitic vol]94.2 mEChlmvq77.0 - 100.0 fLRemisol HemeMonocytes (Bld) [#/Vol]0.7 E9/LNormal0.2 - 1.0 E9/LRemisol HemeMonocytes/100 WBC (Bld)7.5 % Normal4.0 - 14.0 %Remisol HemeNeutrophils (Bld) [#/Vol]5.7 E9/LNormal2.0 - 7.5 E9/LRemisol HemeNeutrophils/100 WBC (Bld)64.7 %Sssnox45.0 - 75.0 %Remisol Heme Platelet mean volume (Bld) [Entitic vol]9.2 fLNormal6.4 - 10.8 fLRemisol Heme Platelets (Bld) [#/Vol]243.0 E9/RXtzvld330.0 - 500.0 E9/LRemisol HemeRBC (Bld) [#/Vol]4.6 E12/LNormal4.3 - 5.9 E12/LRemisol HemeWBC corrected for nucl RBC Auto (Bld) [#/Vol]8.9 E9/LNormal4.0 - 11.0 E9/LRemisol JaonSdtI4dzy 09-76-7573LgJ3b (Bld) [Mass fraction]6.5 %High<=5.9Barnesville HospitalComment on above: Performed By: #### [id number] #### [facility] [address] [place] [address]L Microalbon 33-11-4352Lsrpweq DL <= 20 mg/L (U) [Mass/Vol]0.7 mg/dLNormal0.0-1.9Barnesville HospitalComment on above:Performed By: #### [id number] #### [facility] [address], [place] [address]uMIUhq 38-85-1439pTZJ61 mL/min/1.73 d3Omzdle>=59Barnesville HospitalComment on above:Performed By: #### [id number] #### [facility] [address], [place] [address]Vkftb metabolic 2000 panelon 23-64-9137Jejbs gap [Moles/Vol]15 mmol/VIjrbev99-50JmdapmtttyWayne HealthCare Main CampusComment on above: Performed By: #### 36758-6 #### TING Knox (07931) [facility] ([facility]) [address] [place] [address]Ohkxgvw [Mass/Vol]9.9 mg/dLNormal8.6-10.6UnWayne HealthCare Main CampusComment on above:Performed By: #### 63012-2 #### TING Knox (91043) [facility] ([facility]) [address] [place] [address]Zfvmnmpb [Moles/Vol]107 mmol/RFjrwhc72-948UofqbqkcxxWayne HealthCare Main CampusComment on above:Performed By: #### 56461-1 #### TING Knox (42007) [facility] ([facility]) [address] [place] [address] 14076YG0 [Moles/Vol]25 mmol/FUfnbbl80-86HxaascrtuwWayne HealthCare Main CampusComment on above:Performed By: #### 49810-7 #### TING Knox (12502) [facility] ([facility]) [address] [place] [address]Fptyoyzanv [Mass/Vol]0.96 mg/dLNormal0.50-1.30UnWayne HealthCare Main CampusComment on above:Performed By: #### 97964-4 #### TING Knox (20702) [facility] ([facility]) [address] [place], [place] [address]Zrjrnpewto filtration rate/1.73 sq M.rlcehfeop83 mL/min/1.73m*2Normal>60UnWayne HealthCare Main CampusComment on above:Result Comment: Calculations of estimated GFR are performed using the 2020 CKD-EPI Study Refit equation without the race variable for the IDMS-Traceable creatinine methods. https://jasn.asnjournals.org/content/early//ASN.8475395762Dkhztfjrg By: #### 80505-4 #### TING Knox (24793) [facility] ([facility]) [address] [place] [address] 569[address]Skspuix [Mass/Vol]109 mg/qEWfrl32-51VpcetccqjiWayne HealthCare Main CampusComment on above:Performed By: #### 18795-9 #### TING VIEIRA L (76574) [facility] ([facility]) [address] [place], [place] [address]Ctyqnjgrz [Moles/Vol]4.5 mmol/LNormal3.5-5.3[facility] Anne HospitalComment on above:Performed By: #### 57342-2 #### TING Knox (47471) [facility] ([facility]) [address] [place] [address]Ykyhwq [Moles/Vol]142 mmol/NUygdsq640-858SwbukstlpfWayne HealthCare Main CampusComment on above:Performed By: #### 11509-8 #### TING VIEIRA L (32875) [facility] ([facility]) [address] [place] [address]55[address]Uess nitrogen [Mass/Vol]18 mg/dLNormal6-23[facility] St. Anne HospitalComment on above:Performed By: #### 28138-5 #### TING VIEIRA L (10579) [facility] ([facility]) [address] [place] [address] 51988KPI panel Auto (Bld)on 20-39-6385Nimuojbetky distribution width (RBC) [Ratio]13.3 %Gvhgkg29.5-14.5[facility] St. Anne HospitalComment on above:Performed By: #### 51233-9 #### TING Knox (87775) [facility] ([facility]) [address] [place] [address] 726[address]Tkhdncyhld (Bld) [Volume fraction]45.5 %Zscwht37.0-52.[address] Anne HospitalComment on above:Performed By: #### 67495-6 #### TING Knox (68551) [facility] ([facility]) [address] [place] [address]Ndqsdkejqs (Bld) [Mass/Vol]14.5 g/vXRzxcuc71.5-17.5UnWayne HealthCare Main CampusComment on above:Performed By: #### 32118-1 #### TING Knox (04394) [facility] ([facility]) [address] [place] [address] 74693HWQ (RBC) [Entitic mass]30.1 waElcvwu06.0-34.0UnWayne HealthCare Main CampusComment on above:Performed By: #### 25738-7 #### TING Knox (20143) [facility] ([facility]) [address] [place] [address] 980[address]HQRK (RBC) [Mass/Vol]31.9 g/dLLow32.0-36.0UnWayne HealthCare Main CampusComment on above:Performed By: #### 75972-4 #### TING Knox (15976) [facility] ([facility]) [address] [place] [address] 34385AEE (RBC) [Entitic vol]94 fGLycfnm69-444FajvqabcwlWayne HealthCare Main CampusComment on above:Performed By: #### 72510-0 #### TING Knox (24692) [facility] ([facility]) [address] [place], [place] [address]Wkcjepdqs RBC/100 WBC (Bld) [Ratio]0.0 /100 WBCsNormal0.0-0.[address] Anne HospitalComment on above:Performed By: #### 99498-2 #### TING Knox (97913) [facility] ([facility]) [address] [place], [place] [address]Hzolnijbd (Bld) [#/Vol]254 x10*3/bVVsqanz195-796AjfjjdkxxrWayne HealthCare Main CampusComment on above:Performed By: #### 49589-7 #### TING Knox (74005) [facility] ([facility]) [address] [place], [place] [address]JXI (Bld) [#/Vol]4.82 x10*6/uLNormal4.50-5.90UnWayne HealthCare Main CampusComment on above:Performed By: #### 28249-9 #### TING Knox (27605) [facility] ([facility]) [address] [place] [address] 536[address]ZTQ (Bld) [#/Vol]8.5 x10*3/uLNormal4.4-11.3UnWayne HealthCare Main CampusComment on above:Performed By: #### 61697-6 #### TING Knox (16290) [facility] ([facility]) [address] [place] [address] 13470Pmjfvutk pathology studyon 56-08-3102Ytqkbniq pathology study Pathology report.total SEE COMMENT Surgical Pathology Case: [id number] Authorizing Provider: Mary Schneider MD Collected: 04/07/2024 1137 Ordering Location: [facility] Received: 04/07/2024 1145 Pathologist: Alessandro [...] PAS is negative for heart fungal organisms. travel sales consultant: Dr. Jose Leary. Laboratory comment [...] is submitted in toto in one cassette. [facility] HospitalGLUCOSE, BLOOD (POC)on 25-18-4641Yruuzlm [Mass/Vol]113 mg/dAPpprnmeo80 - 99 mg/dLWright-Patterson Medical Center Comment on above:Location:[facility], [address] [place] [address] , [place], [place], [facility] The Accu-Chek Inform II glucose meter [...] above situations. Interpretation and review of laboratory resultsAbnormalCleveland [facility] PET/CT SKULL-THIGH INITon 63-73-2848ZM PET/CT SKULL-THIGH INIT* * *Final Report* * * DATE OF [...] * Uptake Time: 61 minutes * Radiopharmaceutical: S21-Yirijuluqnfzfwgepo (FDG) COMPARISON: No previous FDG PET/CT available [...] the care of you (more content not included)...NormalFostoria City HospitalAmbulatory Visit Summaryon 80-49-7806Tzawsvuiym Visit SummaryAmbulatory Visit Summary JEREMIE BENNETT :1940 Visit Date:03/23/2024 Ambulatory Visit Instructions Your Diagnosis Pancreatic cyst RUQ pain Bloating Chronic GERD History of colon polyps Your Care Team Attending Physician - Beatriz CASON, Inez Funes Primary Care Physician - Demetrius Cooper MD [...] Tab) fluticasone nasal (fluticasone Nasal 0.05 mg/inh [place]) furosemide (furosemide 20 mg Tab) irbesartan (irbesartan [...] Esophagogastroduodenoscopy (05/20/2020), Angioplasty, Cardiac pacemaker procedure, Cataract, Cholecystectomy,Colonoscopy, Hernia repair, Prostate excision, Tonsillectomy, Vasectomy. Discharge Vitals Heart Rate (Peripheral) 71 Respiratory Rate 16 Blood Pressure 117/74 Height 160 cm Height 63 in Weight 77 kg Weight 169.4 lb BMI 30.08 What to do next Scheduled Follow-Up Appointments Wednesday 10:00 AM EST With: Demetrius Cooper MD Where: [address] [address]- Wednesday 2:30 PM EDT With: Where: [place] [id number]- Medications What How Much When Instructions Unchanged [...] Tablets By Mouth Every day Contact prescribing physicianif questions or concerns Unchanged dorzolamide ophthalmic (dorzolamide ophthalmic 2% solution) 1 Drops Ophthalmic 2 times a day each eye Contact prescribing physician if questions or concerns Unchanged famotidine (Pepcid 20 mg Tab) 1 Tablets By Mouth Every day Contact prescribing physician if questions or concerns Unchanged fluticasone nasal (fluticasone Nasal 0.05 mg/ inh [place]) See instructions USE 1 SPRAY IN BOTH [...] See instructions one touch ultra lancets Use totest sugars once a day Contact prescribing physician if questions or concerns Unchanged multivitamin with minerals (Multivitamin, Therapeutic w/ Minerals) By Mouth Every day Contact prescribing physician if questions or concerns Unchanged Non-Formulary Medication (Misc Medication (more content not included)...[place] HospitalGastroenterology Office/Clinic Note on 99-58-2330Xhjaomugbkqkljrc Office/Clinic NoteGastroenterology Office/Clinic Note Chief Complaint 5 month follow [...] Salomón Villarreal [place] [facility] [place], right cervical lymph node, core biopsy: [...] spondylosis Chronic GERD 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 [...] Angioplasty, Cardiac pacemaker proced (more content not included)...[place] [facility] Comment on above:Result Comment: Electronically Signed By: Beatriz CASON, Inez Funes\.br\Date and Time Signed: 03/23/24 14:49 ESTLon 28-15-0564SXyfcetsk: [id number] Received: 02/29/24 Status: LISA Kirby Num: [id number] Spec Type: Surgical Subm Dr: LUC HAM [...] Account Attending Physician Jeremie Bennett 83/M LABELL [id number] LUC HAM MD SPEC NUM: [id number] RECD: 02/29/24 STATUS: LISA KIRBY NUM: [id number] DONTRELL: 02/29/24- SUBM DR: LUC HAM MD ENTERED: 02/29/[address] [facility] [address]: Nicolette,Lab SPEC TYPE: Surgical DEPT: MANNY MONTEZ ENTERED BY: [id number] RECV BY: [id number] ORDERED: S 100, Mucicarmine, HE/6, Gross/Micro L4/2, [...] insufficient lymphocytes Addendum Signed (signature on file) Yair-nAup Sanchez MD 03/04/245 Pathological Diagnosis A, right cervical lymph node, core biopsy: -Positive for metastatic carcinoma, 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 Note: Specimen: [id number] Received: 02/29/24 Status: LISA Kirby Num: [id number] Spec Type: Surgical Subm Dr: LUC HAM MD Tissues: A Lymph Node - Biopsy (Needle or Incisional) (RT CERVICAL LYMPH NODE) B Lymph Node - Biopsy (Needle or Incisional) (RT CERVICAL LYMPH NODE-SALIN) Procedures: S 100, Mucicarmine, HE/6, Gross/Micro L4/2, CK5 6, CK20, CK 7, NAPSIN A, CINtec p16, TTF1, NKX3.1, MOC31, GATA3, p40, DIFF QWIK Patient: Jeremie Bennett [id number] (Continued) Specimen: [id number] Received: 02/29/24 (Continued) Pathological Diagnosis (Continued) Signed (signature on file) Tae Sanchez MD 03/04/24 1033 Specimen: [id number] Received: 02/29/24 Status: LISA Kirby Num: [id number] Spec Type: Surgical Subm Dr: LUC HAM MD Tissues: A Lymph Node - Biopsy (Needle or Incisional) (RT CERVICAL LYMPH NODE) B Lymph Node - Biopsy (Needle or Incisional) (RT CERVICAL LYMPH NODE-SALIN) Procedures: S 100, Mucicarmine, HE/6, Gross/Micro L4/2, CK5 6, CK20, CK 7, NAPSIN A, CINtec p16, TTF1, NKX3.1, MOC31, GATA3, p40, DIFF QWIK Patient: Jeremie Bennett [id number] (Continued) Specimen: [id number] Received: 02/29/24-151 (Continued) Pathological Diagnosis (Continued) -The [...] RPMI for flow c (more content not included)...NormalThe [facility]ville Medical Center Physician GroupCT SOFT TISSUE NECK W IV CONTRASTon 41-15-7826MB SOFT TISSUE NECK W IV CONTRAST TITLE [...] 0.6 x 0.7 x 0.8 cm (TV/AP/CC) (series2/image 39 and 300/49). Normal-appearing lymph node inferior [...] and mild to moderate right carotid bulb calcification/atherosclerotic plaque. There appears to be approximately 50% arden nosis of the left internal carotid artery at its origin. No significant appreciable stenosis of theright ICA. Paranasal sinuses, face, orbits, and skull [...] to be approximately 50% stenosis of the leftinternal carotid artery at its origin. 4. Subjectively mild apical pulmonary centrilobular emphysema. DICTATED ON: 02/14/2024 10:11 AM This report has been electronically signed in approved by the interpreting radiologist. Electronically Signed Edgard Scales M.D. 2024-02-14 10:23:31NormalNot AvailableComment on above:Order Comment: CT S/T Neck W at [facility]. Please call patient to schedule.Itz [id number] Telephone ([facility]) JEREMIE BENNETT ([id number]) 1940 M Date Time Provider Department 02/02/24 VAISHALI PRINGLE [facility] During your visit today, we recorded the [...] it was completed in 12/2023 at [facility]. Our office will request results for Dr. Pringle's review. Follow up will be determined upon Dr. Pringle's review of results. Carlitos Beckman 02/04/2024 9:19 AM Signed Surveillance imaging completed at OSH for IPMN surveillance. Carlitos Beckman 02/07/2024 9:31 AM Signed IPMN surveillance. Review OSH images and advise please [facility] MRI Cholanglogram Pancreatography 11/09/2023 Allergies As of Date: 02/02/2024 Noted Allergy Reaction ADHESIVE TAPE-SILICONES 01/19/2019 2 - Rash NIACIN 01/19/2019 9 - Itching 16 - Unknown Date Reviewed: 04/01/2023 Reviewed by: Debby Holland MA - Fully Assessed Reason for Visit: MRI Appointment [3129] Surgical Technician - Other [3602] Primary Visit Diagnosis:IPMN (intraductal papillary mucinous neoplasm) [D49.0] Order(s):CONSULT FOR RAD 2ND READ [2246713] Order #: [id number]: 1 Prescriptions as of 02/18/2024 - iv [...] fluticasone (FLONASE) 50 mcg/actuation nasal spray 1 [place]. - omeprazole (PRILOSEC) 40 mg capsule Take [...] (None) Encounter Status:Closed by CARLITOS BECKMAN on 02/18/24[facility] CenterAmb[facility] Visit Summaryon 49-27-7354Hjqyivkkey Visit SummaryAmbulatory Visit Summary JEREMIE BENNETT :1940 Visit Date:02/01/2024 [...] Tab) fluticasone nasal (fluticasone Nasal 0.05 mg/inh [place]) furosemide (furosemide 20 mg Tab) irbesartan (irbesartan [...] Esophagogastroduodenoscopy (05/20/2020), Angioplasty, Cardiac pacemaker procedure, Cataract, Cholecystectomy,Colonoscopy, Hernia repair, Prostate excision, Tonsillectomy, Vasectomy. Discharge Vitals Temperature (Oral) 36.7 ?C Heart Rate (Peripheral) 68 Respiratory Rate 16 Blood Pressure 122/80 Height 160 cm Height 63 in Weight 79.0 kg Weight 173.8 lb BMI 30.86 What to do next Scheduled Follow-Up Appointments 2023 2:45 PM EST With: Beatriz CASON, Inez Funes Where: [facility] [address] [place] [address] [place] [address]- Wednesday 10:00 AM EST With: Allison CASON, Demetrius Rosa Where: [address] [id number]- Wednesday 2:30 PM EDT With: Where: [address] [address]- Medications What How Much When [...] Tablets By Mouth Every day Contact prescribing physicianif questions or concerns Unchanged dorzolamide ophthalmic (dorzolamide [...] fluticasone nasal (fluticasone Nasal 0.05 mg/ inh [place]) See instructions USE 1 SPRAY IN BOTH [...] DME Prescription) See instructions (more content not included)...[facility] HospitalF[facility] Medicine Office/Clinic Noteon 37-04-0165Tyhfwu Medicine Office/Clinic NoteFataunton state hospital Medicine Office/Clinic Note HPI Staff Jeremie is [...] BID, # 20 cap(s), Refills(s) 0, Pharmacy: [facility] #[id number], 160, cm, 01/10/24 9:43:00 EDT, Height/Length Dosing, 77.8, kg, 01/10/24 9:43:00 EDT, Weight Dosing Follow-up No qualifying data available Problem List/Past Medical History Ongoing BMI 29.0-29.9,adult Cervical lymphadenopathy Cervical spondylosis Chronic GERD 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 Medications Albuterol (Eqv-ProAir HFA) 90 mcg/inh inhalation aerosol, See Instructions amLODIPine 5 mg Tab, 5 mg= 1 tab(s), Oral, Daily, 1 refills Aspir 81, 81 mg, Oral, Daily dorzolamide ophthalmic 2% solution, 1 drop(s), OPTH, BID Esgic 325 mg-50 mg-40 mg oral capsule, 1 cap(s), Oral, q4hr, PRN, 1 refills fluticasone Nasal 0.05 mg/inh [place], See Instructions furosemide 20 mg Tab, 20 [...] home: No. Drinks more than intended: No. Othershurt by drinking: No. Ready to change: No. Household alcohol concerns: No., 11/08/2023 Substanc (more content not included)...[place] HospitalComment on above:Result Comment: Electronically Signed By: Demetrius Cooper MD\.br\Date and Time Signed: 02/01/24 09:16 EDTAmbulatory Visit Summaryon 01-10-2024 Ambulatory Visit SummaryAmbulatory Visit Summary JEREMIE BENNETT :1940 Visit Date:01/10/2024 [...] mg Tab) fluticasone nasal (Flonase 0.05 mg/inh [place]) furosemide (furosemide 20 mg Tab) irbesartan (irbesartan [...] Esophagogastroduodenoscopy (05/20/2020), Angioplasty, Cardiac pacemaker procedure, Cataract, Cholecystectomy,Colonoscopy, Hernia repair, Prostate excision, Tonsillectomy, Vasectomy. Discharge Vitals Temperature (Temporal Artery) 36.4 ?C Heart Rate (Peripheral) 72 Respiratory Rate 20 Blood Pressure 124/80 Height 160 cm Height 63 in Weight 77.8 kg Weight 171.16 lb BMI 30.39 What to do next Scheduled Follow-Up Appointments Wednesday 8:45 AM EDT With: Demetrius Cooper MD Where: [address] [address]- 2023 2:45 PM EST With: Beatriz CASON, Inez Funes Where: [facility] [address] [address]- Wednesday 10:00 AM EST With: Demetrius Cooper MD Where: [address] [address]- Wednesday 2:30 PM EDT With: Where: [address] [address]- Medications What How Much When [...] Unchanged fluticasone nasal (Flonase 0.05 mg/ inh [place]) 1 Sprays Nasal Inhalation 2 times a [...] By Mouth Every day Unchanged Misc Prescription ([facility] [place]) See instructions one touch ultra test strips test sugars once a day Unchanged Misc Prescription ([facility] Prescription) See instructions one touch ultra lancets Use totest sugars once a day Unchanged multivitamin with minerals (Multivitamin, Therapeutic w/ Minerals) By Mouth Every day Unchanged Non-Formulary Medication (Misc Medication) Transdermal Therapeutics up to four times per day: Meloxicam 0.5%/ Doxepin 3%/ Amantidine 3%/ Dextromethorphan 2%/ Lidocaine 2% Unchanged omeprazole (omeprazole 40 mg Cap-DR) 1 Capsules By Mouth Every day Chronic GERD Duration:90 Days Unchanged psyllium (Metamucil) Unchanged rosuvastatin (rosuvastatin 10 mg Tab) See instructions TAKE 1 TABLET BY MOUTH DAILY Unchanged sotalol (sotalol 80 mg Tab) 0.5 tab By Mouth 2 times a day Unchanged tizanidine (tiZANidine 4 mg Tab) 1 Tablets By Mouth Every day Unchanged zonisamide (z (more content not included)...[facility] Medicine Office/Clinic Noteon 53-85-6830[facility] Medicine Office/Clinic NoteFataunton state hospital Medicine Office/Clinic Note HPI Staff Jeremie is [...] BID, # 20 cap(s), Refills(s) 0, Pharmacy: [facility] #[id number], 160, cm, 01/10/24 9:43:00 EDT, Height/Length Dosing, 77.8, kg, 01/10/24 9:43:00 EDT, Weight Dosing Follow-up No qualifying data available Problem List/Past Medical History Ongoing BMI 29.0-29.9,adult Cervical lymphadenopathy Cervical spondylosis Chronic GERD 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 Medications [...] q4hr, PRN, 1 refills Flonase 0.05 mg/inh Underwood, 1 spray(s), Nasal, BID furosemide 20 mg Tab, 20 mg= 1 tab(s), Oral, Daily irbesartan 300 mg Tab, 300 mg= 1 tab(s), Oral, Daily isosorbide mononitrate, 30 mg, Oral, qAM latanoprost Opth 0.005% Janee loperamide 2 mg (more content not included)...[facility] Comment on above:Result Comment: Electronically Signed By: Allison CASON, Demetrius Branham.br\Date and Time Signed: 01/10/24 10:38 EDTCNPFaviola [id number] ([id number]) JEREMIE BENNETT ([id number]) 1940 M Date Time Provider Department 04/05/23 VAISHALI PRINGLE [id number] During your visit today, we recorded the following information about you: Lolly Dumont 04/05/2023 9:55 AM Signed Received records from [facility]. Reports for imaging listed below scanned. Images pushed through 09/27/2019 US Right Upper Quad 03/31/2020 CT ABD/PEL US Right Upper Quad [facility] MRI Abdomen 02/22/2023 US Soft [...] papillary mucinous neoplasm) [D49.0] Order(s):GI TUMOR BOARD [facility] [APPT42] Order #: [id number]: 1 FUTURE Prescriptions as of 04/06/2023 - isosorbide mononitrate ER (IMDUR) 30 mg 24 hr tablet Take 30 mg by mouth. - clopidogrel (PLAVIX) 75 mg tablet - furosemide (LASIX) 20 mg tablet Take 20 mg by mouth. - fluticasone (FLONASE) 50 mcg/actuation nasal spray 1 Underwood. - omeprazole (PRILOSEC) 40 mg capsule Take [...] (None) Encounter Status:Closed by LAMONTE COUCH on 04/06/23[facility] [id number] Visit ([id number]) JEREMIE BENNETT ([id number]) 1940 M Date Time Provider Department 04/01/23 1:00 PM VAISHALI PRINGLE [id number] During your visit today, we recorded the [...] way of the shared medical record or [employer]al services. Jeremie Bennett is a 82 year [...] with his GI re (more content not included)...Normal [facility] HospitalCHEMISTRYOrdered By: SYSTEM SYSTEM on 03-10-2023 Albumin [Mass/Vol]4.0 g/dLNormal3.3 - 5.0 gm/dLFTMC RemisolAlbumin/Globulin [Mass ratio]1.2 {ratio}Normal1.1 - 2.2[facility] RemisolALP [Catalytic activity/Vol]65 [iU]/wAahmyp44 - 98 Int._Unit/LFTMC RemisolALT No additional P-5'-P [Catalytic activity/Vol]17 [iU]/dNormal6 - 46 Int._Unit/LFTMC RemisolAnion gap [Moles/Vol] 10 mmol/LNormal6 - 16 mEq/LFTMC RemisolAST [Catalytic activity/Vol]16 [iU]/d Normal5 - 43 Int._Unit/LFTMC RemisolBilirubin [Mass/Vol]0.4 mg/dLNormal0.0 - 1.1 mg/dLFTMC RemisolCalcium [Mass/Vol]9.2 mg/dLNormal8.9 - 11.1 mg/dLFTMC Remisol Chloride [Moles/Vol]108 mmol/PAmniea843 - 111 mmol/LFTMC RemisolCO2 [Moles/Vol] 25 mmol/ERgqqhs42 - 31 mmol/LFTMC RemisolCreatinine [Mass/Vol]1.1 mg/dLNormal0.5 - 1.3 mg/dLFT RemisolGFR/1.73 sq M.predicted among non-blacks MDRD (S/P/Bld) [Vol rate/Area]67 mL/min/1.73 x2Hevygi>=59mL/min/1.73 m2FT Chem SComment on above:Interpretive Data: Chronic kidney disease could be indicated at eGFR's of less than 60 mL/min/1.73m2. Kidney failure is indicated at less than 15 mL/min/1.73m2.Globulin (S) [Mass/Vol]3.3 g/dLNormal1.4 - 4.0 gm/dLFT Remisol Glucose [Mass/Vol]136 mg/mTLcuolp74 - 199 mg/dLFT RemisolComment on above: Interpretive Data: If this glucose result represents a fasting glucose, interpretation should referto the following reference range: 55-99 mg/dL Potassium [Moles/Vol]3.9 mmol/LNormal3.5 - 5.3 mmol/LFTMC RemisolProtein [Mass/Vol]7.3 g/dLNormal6.0 - 7.8 gm/dLFT RemisolSodium [Moles/Vol]139 mmol/L Crudhu008 - 145 mmol/LFTMC RemisolUrea nitrogen [Mass/Vol]20 mg/dLNormal5 - 21 mg/dLFT RemisolUrea nitrogen/Creatinine [Mass ratio]18 mg/ipWdytnb94 - 20FT[facility] RemisolHEMATOLOGYOrdered By: SYSTEM SYSTEM on 38-82-7894Mmbmuaxrx/100 WBC (Bld) 0.4 %Normal0.0 - 2.0 %[facility] HemeAutoSSBasophils/Leukocytes Auto (Bld) [Pure # fraction]0.0 E9/LNormal0.0 - 0.2 E9/LFTMC HemeAutoSSEosinophils/100 WBC (Bld)2.4 %Normal0.0 - 8.0 %[facility] HemeAutoSSEosinophils/Leukocytes Auto (Bld) [Pure # fraction]0.2 E9/LNormal0.0 - 0.5 E9/LFTMC HemeAutoSSLymphocytes/100 WBC (Bld) 21.9 %Euncap61.0 - 50.0 %[facility] HemeAutoSSLymphocytes/Leukocytes Auto (Bld) [Pure # fraction]1.8 E9/LNormal1.0 - 4.0 E9/LFTMC HemeAutoSSMonocytes/100 WBC (Bld)6.9 %Normal4.0 - 14.0 %[facility] HemeAutoSSMonocytes/Leukocytes Auto (Bld) [Pure # fraction]0.6 E9/LNormal0.2 - 1.0 E9/LFTMC HemeAutoSSNeutrophils/100 WBC (Bld) 68.4 %Wrzxst82.0 - 75.0 %[facility] HemeAutoSSNeutrophils/Leukocytes Auto (Bld) [Pure # fraction]5.8 E9/LNormal2.0 - 7.5 E9/LFTMC HemeAutoSSHEMATOLOGYOrdered By: Ethel Peters on 23-93-8387Nfgkfumhtpk distribution width (RBC) [Ratio]13.9 % Lkiyip63.9 - 14.2 %[facility] HemeAutoSSHematocrit (Bld) [Volume fraction]43.6 %Normal 37.7 - 49.0 %[facility] HemeAutoSSHemoglobin (Bld) [Mass/Vol]14.5 g/mRUbmcif81.5 - 17.5 gm/dLFTMC HemeAutoSSMCH (RBC) [Entitic mass]30.4 wvBuntjc66.0 - 34.0 pgFTMC HemeAutoSSMCHC (RBC) [Mass/Vol]33.2 g/sFRdveyv58.4 - 36.0 gm/dLFTMC HemeAutoSS MCV (RBC) [Entitic vol]91.7 jXOislsk60.0 - 100.0 fLFTMC HemeAutoSSPlatelet mean volume (Bld) [Entitic vol]8.6 fLNormal6.4 - 10.8 fLFTMC HemeAutoSSPlatelets (Bld) [#/Vol]236.0 E9/SIbpcnn291.0 - 500.0 E9/LFTMC HemeAutoSSRBC (Bld) [#/Vol] 4.8 E12/LNormal4.3 - 5.9 E12/LFTMC HemeAutoSSWBC corrected for nucl RBC Auto (Bld) [#/Vol]8.4 E9/LNormal4.0 - 11.0 E9/LFTMC HemeAutoSSMICRO OTHER TESTS Ordered By: Elba Felipe on 74-17-9040Pbyia WBC LactoferrinNegative 3 (03/10/23 12:45 PM)NormalNegativeJACKSON [facility] Man SeroComment on above:Interpretive Data: The semi-quantitative detection of elevated levels of fecal lactoferrin is a marker for fecal leukocytes and an indication of intestinal inflammation. CHEMISTRYOrdered By: Yash Shah on 05-72-2151Dwfedof DL <= 20 mg/L (U) [Mass/Vol]microgram/mLNormal0.0 - 19.0 mcg/mLJACKSON COUNTY [facility]ORIAL [facility] RemisolAlbumin Elph (U) [Mass fraction]mg/dLInvalid Interpretation CodeJACKSON COUNTY MEMORIAL [facility]OS[facility] RemisolCreatinine (U) [Mass/Vol] 15.9 mg/dLInvalid Interpretation CodeJACKSON [facility] Chem MONSALVE Prot/Creat RatioUTCInvalid Interpretation Code0.00 - 200.00[facility] Chem SComment on above:Result Comment: Unable to calculate due to Protein being less than analyzer reportable range.CBC AUTO DIFFon [id number] #0.1 103/ulNormal0.0-0.1[facility] CompanyComment on above:Performed By: #### CBC #### [facility] [address] [address] [address] Ramsye Kirbysophils/100 WBC (Bld)0.7 %Normal0.2-2.0[facility] Comment on above:Performed By: #### CBC #### [facility] [address] [address] [address] Ramsey Ortiz #0.2 103/ulNormal0.0-0.7The [facility] HospitalComment on above: Performed By: #### CBC #### [facility] [address] [address] [address] Ramsey Canoosinophils/100 WBC (Bld)1.5 %Normal0.9-7.0[facility] Comment on above:Performed By: #### CBC #### [facility] [address] [place] [address] Dr. Ramsey Canorythrocyte distribution width (RBC) [Ratio]13.6 %Ybfdcy12.0-15.0 [facility] HospitalComment on above:Performed By: #### CBC #### [facility] [address] [place] [address] Dr. Ramsey SanchezHematocrit (Bld) [Volume fraction]43.5 %Cqajhf76.0-54.0The [facility] HospitalComment on above:Performed By: #### CBC #### [facility] [address] [place] [address] Dr. Ramsey SanchezHemoglobin (Bld) [Mass/Vol]13.9 g/dLCritically low14.0-18.0[facility] CompanyComment on above:Performed By: #### CBC #### [facility] [address] [place] [address] Dr. Ramsey Nowak #0.29 10e3/ulCritically high0.00-0.03[facility] Comment on above:Performed By: #### CBC #### [facility] [address] [place] [address] Dr. Ramsey Nowak %2.9 %Critically high0.0-0.5The [facility] HospitalComment on above:Performed By: #### CBC #### [facility] [address] [place] [address] Dr. Ramsey Damon #2.1 103/ulNormal1.2-3.8The [facility] HospitalComment on above:Performed By: #### CBC #### [facility] [address] [place] [address] Dr. Ramsey Greenwoodhocytes/100 WBC (Bld)20.8 %Ucoevw43.5-60.0The [facility] HospitalComment on above:Performed By: #### CBC #### [facility] [address] [place] [address] Dr. Ramsey MurrietaUAL DIFF REQNONormalThe [facility] HospitalComment on above: Performed By: #### CBC #### [facility] [address] [place] [address] Dr. Ramsey Enriquez (RBC) [Entitic mass]29.6 sgWclmxd84.9-34.0The [facility] HospitalComment on above:Performed By: #### CBC #### [facility] [address] [place] [address] Dr. Ramsey Enriquez (RBC) [Mass/Vol]32.0 g/bIJiaoyx06.9-35.2The [facility] HospitalComment on above:Performed By: #### CBC #### [facility] [address] [place] [address] Dr. Ramsey Enriquez (RBC) [Entitic vol]92.6 dAUpngoh24.0-94.0The [facility] HospitalComment on above:Performed By: #### CBC #### [facility] [address] [place] [address] Dr. Ramsey Ignacio #0.8 103/ulNormal0.3-0.8The [facility] HospitalComment on above:Performed By: #### CBC #### [facility] [address] [place] [address] Dr. Ramsey Ervinocytes/100 WBC (Bld)8.3 %Normal1.7-12.0The [facility] Comment on above:Performed By: #### CBC #### [facility] [address] [place] [address] Dr. Ramsey Cooney #6.5 103/ulNormal1.4-6.5The [facility] HospitalComment on above:Performed By: #### CBC #### [facility] [address] [place] [address] Dr. Ramsey Torresutrophils/100 WBC (Bld)65.8 %Xjujhb64.0-75.0The [facility] HospitalComment on above:Performed By: #### CBC #### [facility] [address] [place] [address] Dr. Ramsey Garciaslet mean volume (Bld) [Entitic vol]11.1 fLNormal9.5-13.5The [facility] HospitalComment on above:Performed By: #### CBC #### [facility] [address] [place] [address] Dr. Ramsey SanchezPLT198 103/ppXeeknr163-025Sgg [facility] HospitalComment on above: Performed By: #### CBC #### [facility] [address] [place] [address] Dr. Ramsey SanchezRBC4.70 106/ulNormal4.70-6.10The [facility] HospitalComment on above:Performed By: #### CBC #### [facility] [address] [place] [address] Dr. Ramsey SanchezWBC9.9 103/ulNormal4.0-11.0The [facility] HospitalCommclaren thumb region on above: Performed By: #### CBC #### [facility] [address] [place] [address] Dr. Ramsey Delgadillo URINE PROFILEon 13-57-5025Edtavaifh Ql (U)NegativeNormal NEGATIVERegency Hospital CompanyComment on above:Performed By: #### ERUR #### [facility] [address] [place] [address] Dr. Ramsey Baca (U)CLEARNormalCLEARRegency Hospital CompanyCommclaren thumb region on above: Performed By: #### ERUR #### [facility] [address] [place] [address] Dr. Ramsey Mendez (U)YELLOWNormalYELLOWRegency Hospital CompanyComment on above: Performed By: #### ERUR #### [facility] [address] [place] [address] Dr. Ramsey Phan micrscopic examination will be performed if indicated. NormalThe [facility] HospitalCommclaren thumb region on above:Performed By: #### ERUR #### [facility] [address] [place] [address] Dr. Ramsey Songose Ql (U)NegativeNormalNEGATIVERegency Hospital CompanyComment on above:Performed By: #### ERUR #### [facility] [address] [place] [address] Dr. Ramsey SanchezHemoglobin Ql (U)NegativeNormalNEGATIVERegency Hospital Company Comment on above:Performed By: #### ERUR #### [facility] [address] [place] [address] Dr. Ramsey Pradoones Ql (U)NegativeNormalNEGATIVEThe [facility] HospitalComment on above:Performed By: #### ERUR #### [facility] [address] [place] [address] Dr. Ramsey SanchezLEUKOCYTESNegativeNormalNEGATIVERegency Hospital CompanyComment on above:Performed By: #### ERUR #### [facility] [address] [place] [address] Dr. Ramsey SanchezNitrite Ql (U)NegativeNormalNEGATIVERegency Hospital CompanyComment on above:Performed By: #### ERUR #### [facility] [address] [place] [address] Dr. Ramsey SanchezpH (U)5.5 [pH]Normal5-9The [facility] HospitalComment on above: Performed By: #### ERUR #### [facility] [address] [place] [address] Dr. Ramsey SanchezSPEC GRAVITY1.118Qsmlyj5.005-<=1.025The [facility] HospitalComment on above:Performed By: #### ERUR #### [facility] [address] [place] [address] Dr. Ramsey Calle PROTEINNegativeNormalNEGATIVE/ TRACEThe [facility] Comment on above:Performed By: #### ERUR #### [facility] [address] [place] [address] Dr. Ramsey Hemphill MICRO INDNOT INDICATEDNoalThFirelands Regional Medical Center South CampusComment on above:Performed By: #### ERUR #### [facility] [address] [place] [address] Dr. Ramsey Arredondobilinogen Qn (U)0.2 {Leatha'U}/dLNormal0.2 - 1.0The [facility] HospitalComment on above:Performed By: #### ERUR #### [facility] [address] [address] [address] Ramsey SanchezLACTATE/LACTIC ACIDon 69-41-4826Wpcxgjr [Moles/Vol]1.7 mmol/L Normal0.4-2.0The [facility] HospitalComment on above:Performed By: #### LACT #### [facility] [address] [address] [address] Ramsey SanchezPROF 14(COMP METB)on 37-36-2253Xjgdjdj [Mass/Vol]3.1 g/dL Critically low3.4-5.0The [facility] HospitalComment on above:Performed By: #### CMP, HSTROPN #### [facility] [address] [place] [address] Dr. Ramsey SanchezAlbumin/Globulin [Mass ratio]0.8 {ratio}NormalThe [facility] HospitalComment on above:Performed By: #### CMP, HSTROPN #### [facility] [address] [place] [address] Dr. Ramsey Mcgrath [Catalytic activity/Vol]73 U/UDbluin60-119Ytw [facility] Hospitalment on above:Performed By: #### CMP, HSTROPN #### [facility] [address] [place] [address] Dr. Ramsey Mclean [Catalytic activity/Vol]22 U/MNyemow03-39Ywh [facility] HospitalComment on above:Performed By: #### CMP, HSTROPN #### [facility] [address] [place] [address] Dr. Ramsey Graham gap [Moles/Vol]13.5 mmol/LNormalThe [facility] on above:Performed By: #### CMP, HSTROPN #### [facility] [address] [place] [address] Dr. Ramsey Wilson [Catalytic activity/Vol]26 U/MHqvzuh19-71Jnh [facility] Hospitalment on above:Performed By: #### CMP, HSTROPN #### [facility] [address] [address] [address] Ramsey SanchezBilirubin [Mass/Vol]0.4 mg/dLNormal0.2-1.0The [facility] Comment on above:Performed By: #### CMP, HSTROPN #### [facility] [address] [address] [address] Ramsey SanchezCalcium [Mass/Vol]8.4 mg/dLCritically low8.5-10.1The [facility] HospitalComment on above:Performed By: #### CMP, HSTROPN #### [facility] [address] [address] [address] Ramsey SanchezChloride [Moles/Vol]107 mmol/BBjedvc50-706Hze [facility] Comment on above:Performed By: #### CMP, HSTROPN #### [facility] [address] [place] [address] Dr. Ramsey SanchezCO2 [Moles/Vol]26.1 mmol/QUgigws63.0-32.0The [facility] Comment on above:Performed By: #### CMP, HSTROPN #### [facility] [address] [address] [address] Ramsey SanchezCreatinine [Mass/Vol]0.94 mg/dLNormal0.70-1.30The [facility] HospitalComment on above:Performed By: #### CMP, HSTROPN #### [facility] [address] [place] [address] Dr. Ramsey CanoGFR-AF MICRONESIAN>60Normal>=60The [facility] HospitalComment on above:Performed By: #### CMP, HSTROPN #### [facility] [address] [place] [address] Dr. Ramsey CanoGFR-NON AF MICRONESIAN>60Normal>=60The [facility] HospitalComment on above:Performed By: #### CMP, HSTROPN #### [facility] [address] [place] [address] Dr. Ramsey SanchezGlobulin (S) [Mass/Vol]3.7 g/dLNormalThe [facility]idelity HospitalComment on above:Performed By: #### CMP, HSTROPN #### [facility] [address] [address] [address] Ramsey SanchezGlucose [Mass/Vol]118 mg/dLCritically yfij53-470Yuj [facility] HospitalComment on above:Performed By: #### CMP, HSTROPN #### [facility] [address] [place] [address] Dr. Ramsey SanchezPotassium [Moles/Vol]3.6 mmol/LNormal3.5-5.1The [facility] Comment on above:Performed By: #### CMP, HSTROPN #### [facility] [address] [place] [address] Dr. Ramsey SanchezProtein [Mass/Vol]6.8 g/dLNormal6.4-8.2The [facility] Comment on above:Performed By: #### CMP, HSTROPN #### [facility] [address] [place] [address] Dr. Ramsey SanchezSodium [Moles/Vol]143 mmol/FNvthbg171-028Tgy [facility] Comment on above:Performed By: #### CMP, HSTROPN #### [facility] [address] [place] [address] Dr. Ramsey SanchezUrea nitrogen [Mass/Vol]19.0 mg/dLCritically high7.0-18.0The [facility] HospitalComment on above:Performed By: #### CMP, HSTROPN #### [facility] [address] [place] [address] Dr. Ramsey SanchezUrea nitrogen/Creatinine [Mass ratio]20.2 mg/mgNoSelect Medical Specialty Hospital - CincinnatiComment on above:Performed By: #### CMP, HSTROPN #### [facility] [address] [place] [address] Dr. Ramsey Steward, HIGH SENSITIVITYon 33-43-2599WOGJUE1.8 pg/mLNormal 4.0-76.1[facility] Hospital CompanyComment on above:Result Comment: CUT-OFF POINTS HAVE BEEN ESTABLISHED BASED ON THE FOURTH UNIVERSAL DEFINITIONS OF MYOCARDIAL INFARCTION. THE UPPER REFERENCE LIMIT (URL) OF TROPONIN, DEFINED THE 99TH PERCENTILE OF cTnI DISTRIBUTION IN A REFERENCE POPULATION, HAS BEEN CONFIRMED THE DECISION THRESHOLD FOR IA DIAGNOSIS.Performed By: #### CMP, HSTROPN #### [facility] [address] [address] [address] Ramsey SanchezXR CHEST 1 Von 26-01-4050PV CHEST 1 VEXAM: XR CHEST 1 V at 1557 hours HISTORY: SHORTNESS OF BREATH COMPARISON: [...] hardware and overlying objects out of the icypd-on-iwyf. Electronically authenticated by: ALANNA CARLOS Date: 2022-09-29 16:37[facility] Hospital - AkronBNPon 88-62-8816Iaokvtzvopj peptide B (Bld) [Mass/Vol]720.0 pg/mLNormal<=1,800.0The [facility] HospitalComment on above:Performed By: #### CXSTOOL #### [facility] [address] [place] [address] Dr. Ramsey Bruno RAFI ADMITon 09-81-3376WU [Catalytic activity/Vol]198 U/L Zmvjxi66-129Ulg [facility] HospitalComment on above:Performed By: #### CXSTOOL #### [facility] [address] [address] [address] Ramsey Reyes.MB [Mass/Vol]2.62 ng/mLNormal<=3.60[facility] Comment on above:Performed By: #### CXSTOOL #### [facility] [address] [address] [address] Ramsey SanchezHSTROP8.8 pg/mLNormal4.0-76.1The [facility] HospitalComment on above:Result Comment: CUT-OFF POINTS HAVE BEEN ESTABLISHED BASED ON THE FOURTH UNIVERSAL DEFINITIONS OF MYOCARDIAL INFARCTION. THE UPPER REFERENCE LIMIT (URL) OF TROPONIN, DEFINED THE 99TH PERCENTILE OF cTnI DISTRIBUTION IN A REFERENCE POPULATION, HAS BEEN CONFIRMED THE DECISION THRESHOLD FOR IA DIAGNOSIS.Performed By: #### CXSTOOL #### [facility] [address] [place] [address] Dr. Ramsey Mcrae69 ng/wORcnlah74-76Xiy [facility] HospitalComment on above: Performed By: #### CXSTOOL #### [facility] [address] [place] [address] Dr. Ramsey Eller AUTO DIFFon [id number] #0.0 103/ulNormal0.0-0.1The [facility] HospitalComment on above:Performed By: #### CBC #### [facility] [address] [place] [address] Dr. Ramsey SanchezBasophils/100 WBC (Bld)0.2 %Normal0.2-2.0[facility] Comment on above:Performed By: #### CBC #### [facility] [address] [place] [address] Dr. Ramsey Ortiz #0.0 103/ulNormal0.0-0.7The [facility] HospitalComment on above: Performed By: #### CBC #### [facility] [address] [place] [address] Dr. Ramsey Canoosinophils/100 WBC (Bld)0.1 %Critically low0.9-7.0The [facility] HospitalComment on above:Performed By: #### CBC #### [facility] [address] [place] [address] Dr. Ramsey Canorythrocyte distribution width (RBC) [Ratio]14.0 %Vrkued65.0-15.0 The [facility] HospitalComment on above:Performed By: #### CBC #### [facility] [address] [address] [address] Ramsey SanchezHematocrit (Bld) [Volume fraction]45.4 %Nqasmk04.0-54.0The [facility] HospitalComment on above:Performed By: #### CBC #### [facility] [address] [place] [address] Dr. Ramsey SanchezHemoglobin (Bld) [Mass/Vol]14.4 g/iVWyaeip48.0-18.0The [facility] HospitalComment on above:Performed By: #### CBC #### [facility] [address] [place] [address] Dr. Ramsey Nowak #0.08 10e3/ulCritically high0.00-0.03The [facility] Comment on above:Performed By: #### CBC #### [facility] [address] [place] [address] Dr. Ramsye Nowak %0.9 %Critically high0.0-0.5The [facility] HospitalComment on above:Performed By: #### CBC #### [facility] [address] [place] [address] Dr. Ramsey Damon #1.6 103/ulNormal1.2-3.8The [facility] HospitalComment on above:Performed By: #### CBC #### [facility] [address] [place] [address] Dr. Ramsey Greenwoodhocytes/100 WBC (Bld)17.9 %Critically low20.5-60.0The [facility] HospitalComment on above:Performed By: #### CBC #### [facility] [address] [place] [address] Dr. Ramsey MurrietaUAL DIFF REQNONormalThe [facility] HospitalComment on above: Performed By: #### CBC #### [facility] [address] [place] [address] Dr. Ramsey Hicks (RBC) [Entitic mass]29.8 jwTloski72.9-34.0The [facility] HospitalComment on above:Performed By: #### CBC #### [facility] [address] [place] [address] Dr. Ramsey Enriquez (RBC) [Mass/Vol]31.7 g/cTHkteqw83.9-35.2The [facility] HospitalComment on above:Performed By: #### CBC #### [facility] [address] [place] [address] Dr. Ramsey EnriquezV (RBC) [Entitic vol]94.0 uVOjqddn87.0-94.0The [facility] HospitalComment on above:Performed By: #### CBC #### [facility] [address] [place] [address] Dr. Ramsey Ignacio #0.9 103/ulCritically high0.3-0.8The [facility] Comment on above:Performed By: #### CBC #### [facility] [address] [place] [address] Dr. Ramsey Ervinocytes/100 WBC (Bld)9.6 %Normal1.7-12.0The [facility] Comment on above:Performed By: #### CBC #### [facility] [address] [place] [address] Dr. Ramsey Cooney #6.3 103/ulNormal1.4-6.5The [facility] HospitalComment on above:Performed By: #### CBC #### [facility] [address] [place] [address] Dr. Ramsey Wongophils/100 WBC (Bld)71.3 %Cpldfq20.0-75.0The [facility] HospitalComment on above:Performed By: #### CBC #### [facility] [address] [place] [address] Dr. Ramsey Garciaslet mean volume (Bld) [Entitic vol]11.0 fLNormal9.5-13.5The [facility] HospitalComment on above:Performed By: #### CBC #### [facility] [address] [place] [address] Dr. Ramsey Kapadia03 103/uoArhcod245-690Nos [facility] HospitalComment on above: Performed By: #### CBC #### [facility] [address] [place] [address] Dr. Ramsey SanchezRBC4.83 106/ulNormal4.70-6.10The [facility] HospitalComment on above:Performed By: #### CBC #### [facility] [address] [place] [address] Dr. Ramsey SanchezWBC8.9 103/ulNormal4.0-11.0The [facility] HospitalCommclaren thumb region on above: Performed By: #### CBC #### [facility] [address] [place] [address] Dr. Ramsey SanchezLACTATE/LACTIC ACIDon 10-17-4029Qxsiahp [Moles/Vol]1.0 mmol/L Normal0.4-2.0The [facility] on above:Performed By: #### CBC #### [facility] [address] [place] [address] Dr. Ramsey SanchezPROF 14(COMP METB)on 43-57-4148Jkgznik [Mass/Vol]3.7 g/dLNormal 3.4-5.0The [facility] on above:Performed By: #### CXSTOOL #### [facility] [address] [place] [address] Dr. Ramsey SanchezAlbumin/Globulin [Mass ratio]0.9 {ratio}NormalThe [facility] on above:Performed By: #### CXSTOOL #### [facility] [address] [place] [address] Dr. Ramsey Mcgrath [Catalytic activity/Vol]68 U/PPqnhed78-908Jwq [facility] HospitalCommclaren thumb region on above:Performed By: #### CXSTOOL #### [facility] [address] [place] [address] Dr. Ramsey Mclean [Catalytic activity/Vol]23 U/VJngcto69-01Ypg [facility] HospitalComment on above:Performed By: #### CXSTOOL #### [facility] [address] [address] [address] Ramsey SanchezAnion gap [Moles/Vol]12.6 mmol/LNormalRegency Hospital Company Comment on above:Performed By: #### CXSTOOL #### [facility] [address] [address] [address] Ramsey SanchezAST [Catalytic activity/Vol]21 U/KBpqblr49-89Dem [facility] HospitalComment on above:Performed By: #### CXSTOOL #### [facility] [address] [address] [address] Ramsey SanchezBilirubin [Mass/Vol]0.3 mg/dLNormal0.2-1.0The [facility] Comment on above:Performed By: #### CXSTOOL #### [facility] [address] [place] [address] Dr. Ramsey SanchezCalcium [Mass/Vol]8.8 mg/dLNormal8.5-10.1[facility] Comment on above:Performed By: #### CXSTOOL #### [facility] [address] [address] [address] Ramsey SanchezChloride [Moles/Vol]104 mmol/NDxsghx51-198Tug [facility] Comment on above:Performed By: #### CXSTOOL #### [facility] [address] [address] [address] Ramsey SanchezCO2 [Moles/Vol]26.7 mmol/SWydwiu25.0-32.0The [facility] Comment on above:Performed By: #### CXSTOOL #### [facility] [address] [address] [address] Ramsey SanchezCreatinine [Mass/Vol]1.27 mg/dLNormal0.70-1.30The [facility] HospitalComment on above:Performed By: #### CXSTOOL #### [facility] [address] [address] [address] Mustafa ChangEGFR-AF MICRONESIAN>60Normal>=60The [facility] HospitalComment on above:Performed By: #### CXSTOOL #### [facility] [address] [address] [address] Ramsey CanoGFR-NON AF COGSWGYX25 mL/min/1.87r0Wexcricuon low>=60The [facility] HospitalComment on above:Performed By: #### CXSTOOL #### [facility] [address] [address] [address] Ramsey SanchezGlobulin (S) [Mass/Vol]3.9 g/dLNoSelect Medical Specialty Hospital - CincinnatiComment on above:Performed By: #### CXSTOOL #### [facility] [address] [address] [address] Ramsey SanchezGlucose [Mass/Vol]114 mg/dLCritically ltyw36-599Hcb [facility] HospitalComment on above:Performed By: #### CXSTOOL #### [facility] [address] [place] [address] Dr. Ramsey SanchezPotassium [Moles/Vol]4.3 mmol/LNormal3.5-5.1The [facility] Comment on above:Performed By: #### CXSTOOL #### [facility] [address] [address] [address] Ramsey SanchezProtein [Mass/Vol]7.6 g/dLNormal6.4-8.2The [facility] Comment on above:Performed By: #### CXSTOOL #### [facility] [address] [address] [address] Ramsey SanchezSodium [Moles/Vol]139 mmol/RCpzorc481-519Oqp [facility] Comment on above:Performed By: #### CXSTOOL #### [facility] [address] [address] [address] Ramsey SanchezUrea nitrogen [Mass/Vol]19.0 mg/dLCritically high7.0-18.0The [facility] HospitalComment on above:Performed By: #### CXSTOOL #### [facility] [address] [address] [address] Ramsey SanchezUrea nitrogen/Creatinine [Mass ratio]15.0 mg/mgNoalThFirelands Regional Medical Center South CampusComment on above:Performed By: #### CXSTOOL #### [facility] [address] [address] [address] Ramsey SanchezXR CHEST 1 Von [id number] CHEST 1 VXR CHEST 1 V 09/24/2022 10:15 PM EDT CLINICAL INDICATION: Chest pain [...] Electronically authenticated by: TRACY HIGHTOWER Date: 2022-09-24 23:29NoSelect Medical Specialty Hospital - CincinnatiCOVID + FLU Quick Testingon [id number]-CoV-2 (COVID-19) RNA MICHELLE+probe Ql (Unsp spec)PositiveNort Rx Network Other COVID + FLU Quick TestingNegativeSwrve Rx Network Other POINT OF CARE GLUCOSEon 14-23-0441Froqhlm [Mass/Vol] 146 mg/dLCritically czil63-370Cyu [facility] HospitalComment on above:Performed By: #### CXSTOOL #### [facility] [address] [address] [address] Ramsey SanchezUS ARTERY UP EXT BILon [id number] ARTERY UP EXT BILEXAMINATION: US ARTERY UP EXT TRISH HISTORY: Pain in upper [...] Electronically authenticated by: ERWIN FALCON Date: 2022-04-16 17:21NoSelect Medical Specialty Hospital - CincinnatiLACTOFERRIN FECAL QUANTon [id number], Fecal, Quant. 1.43 ug/mL(g)Normal0.00-7.24[facility] on above:Result Comment: . Baseline (normal) 0.00 - 7.24 [...] from those with non-inflammatory irritable bowel syndrome (IBS).Performed By: #### CXSTOOL #### [facility] [address] [place] [address] Dr. Ramsey Eller AUTO DIFFon [id number] #0.1 103/ulNormal0.0-0.1The [facility] HospitalComment on above:Performed By: #### CBC #### [facility] [address] [place] [address] Dr. Ramsey Kirbysophils/100 WBC (Bld)0.9 %Normal0.2-2.0[facility] Comment on above:Performed By: #### CBC #### [facility] [address] [place] [address] Dr. Ramsey Ortiz #0.3 103/ulNormal0.0-0.7The [facility] HospitalComment on above: Performed By: #### CBC #### [facility] [address] [place] [address] Dr. Ramsey Canoosinophils/100 WBC (Bld)2.6 %Normal0.9-7.0The [facility] Comment on above:Performed By: #### CBC #### [facility] [address] [place] [address] Dr. Ramsey Canorythrocyte distribution width (RBC) [Ratio]13.2 %Ypkszu75.0-15.0 The [facility] HospitalComment on above:Performed By: #### CBC #### [facility] [address] [address] [address] Ramsey SanchezHematocrit (Bld) [Volume fraction]46.1 %Mexlax26.0-54.0The [facility] HospitalComment on above:Performed By: #### CBC #### [facility] [address] [address] [address] Ramsey SanchezHemoglobin (Bld) [Mass/Vol]14.5 g/jVGtkske54.0-18.0The [facility] HospitalComment on above:Performed By: #### CBC #### [facility] [address] [address] [address] Ramsey Nowak #0.15 10e3/ulCritically high0.00-0.03The [facility] Comment on above:Performed By: #### CBC #### [facility] [address] [place] [address] Dr. Ramsey Nowak %1.3 %Critically high0.0-0.5The [facility] HospitalComment on above:Performed By: #### CBC #### [facility] [address] [address] [address] Ramsey Damon #2.7 103/ulNormal1.2-3.8The [facility] HospitalComment on above:Performed By: #### CBC #### [facility] [address] [address] [address] Ramsey Greenwoodhocytes/100 WBC (Bld)23.0 %Kuyecs17.5-60.0The [facility] HospitalComment on above:Performed By: #### CBC #### [facility] [address] [address] [address] Ramsey MurrietaUAL DIFF REQNONormalThe [facility] HospitalComment on above: Performed By: #### CBC #### [facility] [address] [place] [address] Dr. Ramsey Hicks (RBC) [Entitic mass]31.0 dbUathxi67.9-34.0The [facility] HospitalComment on above:Performed By: #### CBC #### [facility] [address] [address] [address] Ramsey EnriquezHC (RBC) [Mass/Vol]31.5 g/kHIbijnb08.9-35.2The [facility] HospitalComment on above:Performed By: #### CBC #### [facility] [address] [address] [address] Ramsey EnriquezV (RBC) [Entitic vol]98.5 fLCritically high80.0-94.0The [facility] HospitalComment on above:Performed By: #### CBC #### [facility] [address] [place] [address] Dr. Ramsey Ignacio #0.9 103/ulCritically high0.3-0.8The [facility] Comment on above:Performed By: #### CBC #### [facility] [address] [place] [address] Dr. Ramsey Ervinocytes/100 WBC (Bld)7.4 %Normal1.7-12.0[facility] Comment on above:Performed By: #### CBC #### [facility] [address] [place] [address] Dr. Ramsey Cooney #7.6 103/ulCritically high1.4-6.5The [facility] Comment on above:Performed By: #### CBC #### [facility] [address] [place] [address] Dr. Ramsey Torresutrophils/100 WBC (Bld)64.8 %Dtldet69.0-75.0The [facility] HospitalComment on above:Performed By: #### CBC #### [facility] [address] [place] [address] Dr. Ramsey Garciaslet mean volume (Bld) [Entitic vol]11.5 fLNormal9.5-13.5The [facility] HospitalComment on above:Performed By: #### CBC #### [facility] [address] [place] [address] Dr. Ramsey SanchezPLT243 103/cfGpkgin720-721Zkx [facility] HospitalCommclaren thumb region on above: Performed By: #### CBC #### [facility] [address] [address] [address] Ramsey SanchezRBC4.68 106/ulCritically low4.70-6.10The [facility] on above:Performed By: #### CBC #### [facility] [address] [address] [address] Ramsey SanchezWBC11.7 103/ulCritically high4.0-11.0[facility] on above:Performed By: #### CBC #### [facility] [address] [address] [address] Ramsey SanchezGLYCOHEMOGLOBIN A1Con [id number] RECOMMENDATIONSEE [facility] SouthCommclaren thumb region on above:Result Comment: ADA RECOMMENDED LIMIT 4.0 - 6.0 ADA THERAPEUTIC TARGET < 7.0 ACTION SUGGESTED > 7.0Performed By: #### A1C #### [facility] [address] [address] [address] Ramsey SanchezGlucose [Mass/Vol]123 mg/dLNoSelect Medical Specialty Hospital - CincinnatiCommclaren thumb region on above:Performed By: #### A1C #### [facility] [address] [address] [address] Ramsey SanchezHbA1c (Bld) [Mass fraction]5.9 %Normal4.5-6.2[facility] Hospital CompanyCommclaren thumb region on above:Performed By: #### A1C #### [facility] [address] [address] [address] Ramsey SanchezLIPID PROFILEon [id number]-HDL RATIO NORMSEE [facility] SystemCommclaren thumb region on above:Result Comment: 3.3 - 4.4 LOW RISK 4.4 - 7.1 AVERAGE RISK 7.1 - 11.0 MODERATE RISK >11.0 HIGH RISKPerformed By: #### CBC #### [facility] [address] [place] [address] Dr. Ramsey SanchezCholesterol [Mass/Vol]121 mg/dLNormal<=200[facility] Comment on above:Performed By: #### CBC #### [facility] [address] [address] [address] Ramsey SanchezCholesterol in HDL [Mass/Vol]30 mg/dLCritically jpj15-71MagRegency Hospital CompanyComment on above:Performed By: #### CBC #### [facility] [address] [address] [address] Ramsey SanchezCholesterol in LDL [Mass/Vol]47.6 mg/dLNoSelect Medical Specialty Hospital - CincinnatiComment on above:Performed By: #### CBC #### [facility] [address] [address] [address] Ramsey Lyonsestermary jo.total/Cholesterol in HDL [Mass ratio]4.0 {ratio} NormalRegency Hospital CompanyComment on above:Performed By: #### CBC #### [facility] [address] [address] [address] Ramsey Harris NORMAL> or = 60 mg/dl - LOW CARDIOVASCULAR RISK <40 mg/dl - HIGH CARDIOVASCULAR RISKNoSelect Medical Specialty Hospital - CincinnatiComment on above:Performed By: #### CBC #### [facility] [address] [address] [address] Ramsey Arevalo CALC NORMALSEE [facility] SystemComment on above:Result Comment: <100 mg/dl OPTIMAL 100 - 129 mg/dl NEAR OR ABOVE OPTIMAL 130 - 159 mg/dl BORDERLINE HIGH 160 - 189 mg/dl HIGH >190 mg/dl VERY HIGH Performed By: #### CBC #### [facility] [address] [address] [address] Ramsey SanchezTriglyceride [Mass/Vol]217 mg/dLCritically high<=150[facility] Hospital CompanyComment on above:Performed By: #### CBC #### [facility] [address] [address] [address] Ramsey SrinivasanLDL CALC43.4 mg/dLNoSelect Medical Specialty Hospital - CincinnatiComment on above: Performed By: #### CBC #### [facility] [address] [address] [address] Ramsey Eduardo PROFILEon 30-36-1040Ikoloor [Mass/Vol]3.9 g/dLNormal3.4-5.0 The [facility] HospitalComment on above:Performed By: #### CBC #### [facility] [address] [place] [address] Dr. Ramsey SanchezAlbumin/Globulin [Mass ratio]1.1 {ratio}NormalThe [facility] HospitalComment on above:Performed By: #### CBC #### [facility] [address] [place] [address] Dr. Ramsey Mcgrath [Catalytic activity/Vol]75 U/XYckjlx07-290Swq [facility] HospitalComment on above:Performed By: #### CBC #### [facility] [address] [place] [address] Dr. Ramsey Mclean [Catalytic activity/Vol]21 U/JLjltqd75-51Elm [facility] HospitalComment on above:Performed By: #### CBC #### [facility] [address] [place] [address] Dr. Ramsey Wilson [Catalytic activity/Vol]17 U/HBahgnx82-99Inu [facility] HospitalComment on above:Performed By: #### CBC #### [facility] [address] [place] [address] Dr. Ramsey Pineda, CONJUGATED0.1 mg/dLNormal0.0-0.2The [facility] Comment on above:Performed By: #### CBC #### [facility] [address] [place] [address] Dr. Ramsey Funesirubin [Mass/Vol]0.4 mg/dLNormal0.2-1.0The [facility] Comment on above:Performed By: #### CBC #### [facility] [address] [place] [address] Dr. Ramsey SanchezGlobulin (S) [Mass/Vol]3.5 g/dLNormalThe [facility] HospitalComment on above:Performed By: #### CBC #### [facility] [address] [place] [address] Dr. Yilan ChangProtein [Mass/Vol]7.4 g/dLNormal6.4-8.2The [facility] Comment on above:Performed By: #### CBC #### [facility] [address] [place] [address] Dr. Ramsey ChaiedzALBUMIN, RAND URon 12-14-4831zULX<1.3Normal<=30.0The [facility] HospitalComment on above:Performed By: #### MALBR #### [facility] [address] [place] [address] Dr. Ramsey SanchezPROF CHEM 8 (BAS METB)on 91-07-9750Khtdo gap [Moles/Vol]12.6 mmol/LNormalThe [facility] HospitalComment on above:Performed By: #### CBC #### [facility] [address] [place] [address] Dr. Ramsey SanchezCalcium [Mass/Vol]8.9 mg/dLNormal8.5-10.1The [facility] Comment on above:Performed By: #### CBC #### [facility] [address] [place] [address] Dr. Ramsey SanchezChloride [Moles/Vol]103 mmol/YVcfsyn10-995Zsn [facility] Comment on above:Performed By: #### CBC #### [facility] [address] [place] [address] Dr. Ramsey SanchezCO2 [Moles/Vol]28.5 mmol/WNorbwn75.0-32.0The [facility] Comment on above:Performed By: #### CBC #### [facility] [address] [place] [address] Dr. Ramsey SanchezCreatinine [Mass/Vol]0.89 mg/dLNormal0.70-1.30The [facility] HospitalComment on above:Performed By: #### CBC #### [facility] [address] [place] [address] Dr. Mustafa ChangEGFR-AF MICRONESIAN>60Normal>=60The [facility] HospitalComment on above:Performed By: #### CBC #### [facility] [address] [address] [address] Ramsey CanoGFR-NON AF MICRONESIAN>60Normal>=60The [facility] HospitalComment on above:Performed By: #### CBC #### [facility] [address] [address] [address] Ramsey SanchezGlucose [Mass/Vol]102 mg/qSWgvmni13-669Hfk [facility] Comment on above:Performed By: #### CBC #### [facility] [address] [address] [address] Ramsey SanchezPotassium [Moles/Vol]4.1 mmol/LNormal3.5-5.1The [facility] Comment on above:Performed By: #### CBC #### [facility] [address] [place] [address] Dr. Ramsey SanchezSodium [Moles/Vol]140 mmol/SYinhmt602-271Ujq [facility] Comment on above:Performed By: #### CBC #### [facility] [address] [place] [address] Dr. Ramsey SanchezUrea nitrogen [Mass/Vol]16.0 mg/dLNormal7.0-18.0The [facility] HospitalComment on above:Performed By: #### CBC #### [facility] [address] [place] [address] Dr. Ramsey Curiel nitrogen/Creatinine [Mass ratio]18.0 mg/mgNormalThe [facility] HospitalComment on above:Performed By: #### CBC #### [facility] [address] [place] [address] Dr. Ramsey Beauchamp CULTUREon [id number] CultureFinal reportNormal The [facility] HospitalComment on above:Performed By: #### CXSTOOL #### [facility] [address] [place] [address] Dr. Ramsey Cano coli Shiga Toxin EIANegativeNormalNegativeThe [facility] Comment on above:Performed By: #### CXSTOOL #### [facility] [address] [place] [address] Dr. Ramsey Chapman 1CToledo HospitalComment on above:Result Comment: No Salmonella or Shigella recovered.Performed By: #### CXSTOOL #### [facility] [address] [place] [address] Dr. Ramsey Chapman Comment: No Campylobacter species isolated. Salmonella/Shigella ScreenFinal reportSelect Medical Specialty Hospital - AkronComment on above:Performed By: #### CXSTOOL #### [facility] [address] [place] [address] Dr. Ramsey SanchezVITAMIN D 25 OHon 13-35-8576FIM D 25-OH40.2 ng/mLNOhio State Harding HospitalComment on above:Performed By: #### VITAD #### [facility] [address] [place] [address] Dr. Ramsey Araiza RANGESSEE [facility] SystemComment on above: Result Comment: <20 ng/mL Vit D deficient 20 - <30 ng/mL Vit D insufficient 30 - 100 ng/mL Vit D sufficient >100 ng/mL Potential ToxicityPerformed By: #### VITAD #### [facility] [address] [place] [address] Dr. Ramsey Washburn GLUCOSE LABon [id number] [Mass/Vol]120 mg/qHVzke83-777 The [facility] CenterComment on above:Performed By: #### [id number] #### [facility] [address] [place] [address], USAGlucose [Mass/Vol]114 mg/tMFbqs37-690Jue [facility] CenterComment on above:Performed By: #### [id number] #### [facility] [address] [place] [address], USAGlucose [Mass/Vol]136 mg/iHVmac13-967Tml [facility] CenterComment on above:Performed By: #### [id number] #### [facility] [address] [place] [address], USABASIC METABOLIC PANELon 13-96-3200Uvotqpc [Mass/Vol]9.3 mg/dLNormal8.6-10.3The [facility] CenterComment on above: Performed By: #### [id number] #### [facility] [address] [place] [address], USAChloride [Moles/Vol]103 mmol/VJzcaqn75-599Cev [facility] CenterComment on above:Performed By: #### [id number] #### [facility] [address] [place] [address], USACO2 [Moles/Vol]27 mmol/LKbuwba29-60Lgg [facility] CenterComment on above:Performed By: #### [id number] #### [facility] [address] [place] [address], USACreatinine [Mass/Vol]1.04 mg/dLNormal0.70-1.30The [facility] CenterComment on above:Performed By: #### [id number] #### [facility] [address] [place] [address], USAGFR/1.73 sq M predicted among blacks MDRD (S/P/Bld) [Vol rate/Area]mL/min/{1.73_m2}Normal>60The [facility] Comment on above:Result Comment: Calculation may not be valid for patients over 70 yearsPerformed By: #### [id number] #### [facility] [address] [place] [address], USAGFR/1.73 sq M predicted among non-blacks MDRD (S/P/Bld) [Vol rate/Area]mL/min/{1.73_m2}Normal>60The [facility] Comment on above:Result Comment: Calculation may not be valid for patients over 70 yearsPerformed By: #### [id number] #### [place] [facility] [address] [place] [address], USAGlucose [Mass/Vol]128 mg/bZSfpx13-098Gpa [facility] CenterComment on above:Performed By: #### [id number] #### [facility] [address] [place] [address], USAPotassium [Moles/Vol]4.2 mmol/LNormal3.5-5.1The [facility] CenterComment on above:Performed By: #### [id number] #### [facility] [address] [facility] [place] [address], USASodium [Moles/Vol]139 mmol/TJapoby177-708Pmp [facility] CenterComment on above:Performed By: #### [id number] #### [facility] [address] [facility] [place] [address], USAUrea nitrogen [Mass/Vol]20 mg/dLNormal7-25The [facility] CenterComment on above:Performed By: #### [id number] #### [facility] [address] [place] [address], USACBC COMPLETE BLOOD COUNTon 70-39-3711Iymgkepelhu distribution width (RBC) [Ratio]13.9 %Ntwdlh82.5-15.0The [facility] CenterComment on above:Performed By: #### [id number] #### [facility] [address] [place] [address], USAHematocrit (Bld) [Volume fraction]44.9 %Jbwdao44.0-50.0The [facility] CenterComment on above:Performed By: #### [id number] #### [facility] [address] [facility] [place] [address], USAHemoglobin (Bld) [Mass/Vol]14.5 g/bFOicqvw15.0-17.0The [facility] CenterComment on above:Performed By: #### [id number] #### [facility] [address] [facility] [place] [address], [facility] CENTERMCH (RBC) [Entitic mass]30.7 qiQtsfxh26.0-33.0The [facility] CenterComment on above:Performed By: #### [id number] #### [facility] [address] [place] [address], [facility] CENTERMCHC (RBC) [Mass/Vol]32.3 g/mZNvxkna94.0-35.0The [facility] CenterComment on above:Performed By: #### [id number] #### [facility] [address] [place] [address], [facility] CENTERMCV (RBC) [Entitic vol]95.1 jNXzhdkb80.0-98.0The [facility] CenterComment on above:Performed By: #### [id number] #### [facility] [address] [place] [address], USANucleated RBC/100 WBC (Bld) [Ratio]0 %Normal0-0The [facility] CenterComment on above:Performed By: #### [id number] #### [facility] [address] [place] [address], [facility] CENTERPLAT QZZ855 10*3/bADplxna872-534Omj [facility] CenterComment on above:Performed By: #### [id number] #### [facility] [address] [place] [address], [facility] HE[facility] CENTERRBC (Bld) [#/Vol]4.72 10*6/uLNormal4.20-5.70The [facility] CenterComment on above:Performed By: #### [id number] #### [facility] [address] [place] [address], [facility] HE[facility] CENTERWBC (Bld) [#/Vol]12.83 10*3/uLHigh4.00-10.60The [facility] CenterComment on above:Performed By: #### [id number] #### [facility] [address] [place] [address], [facility] HE[facility] CENTERCardiovascular Lab Reporton [id number] Lab ReportUnMercy Memorial Hospital Patient Name: Jeremie [facility] MR #: [id number] Physician: Margaret Arellano, Department of M.D. Medicine Service Date: 08/30/2019 Division of Birthdate: 1940 Cardiology Room #: 3AB 223023 Adult Cardiovascular Services [place] [address] Cardiovascular Laboratory Report FINAL IMPRESSIONS: 1. 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 2. 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 3. 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 4. 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 Arellano in the [place] office in the next 2 to 4 [...] femoral artery was obtained. A 6[place]izen [place] 11 cm sheath was inserted without difficulty. Limited femoral angiography was performed. Bilateral selective coronary angiography was performed using JL4 and JR4 catheters. After reviewing the images, it was elected to proceed with an interventional procedure. A 6[place]izen [place] XB 3.5 guide catheter was advanced over [...] procedure. Attempts to deploy a 6-Citizen [place] MynxGrip closure device were unsuccessful. Therefore, manual [...] Arellano M.D. Date Trans: 08/30/2019 05:00 P/emmanuelle DN_[id number] cc: Demetrius Cooper MD [address] [address]GjmkmrAxlMetroHealth [facility] GLUCOSE LABon [id number] [Mass/Vol]172 mg/iPQxsv11-010Yok [facility] CenterComment on above:Performed By: #### [id number] #### [facility] [address] [place] [address], [facility] HEALTH CENTERGlucose [Mass/Vol]138 mg/gUImyt95-761Rvz [facility] CenterComment on above:Performed By: #### [id number] #### [facility] [address] [place] [address], [place] Vital Signs Date TimeVital SignValuePerforming MvcqqwoziMfmaauwz42-19-2318 09:32-0400Body jxafsu864.1 cmFredric Itzkowitz DO Work Phone: [facility] SystemsTgbgktgnrh43-57-4996 09:32-0400Body mass index (BMI) [Ratio]24.63 kg/u5Zkhvcet Itzkowitz DO Work Phone: [facility] SystemsNygrxesawo33-36-6993 09:32-0400Body tsphxo12.13 kgFredric Itzkowitz DO Work Phone: [facility] SystemsBalipwwdyb29-54-4425 13:08-0400Body vxcilr96.12 Franklyn Cooper MD Work Phone: [facility]07-28-2025 13:30-0400 Body mass index (BMI) [Ratio]26.65 kg/c0AnonfosMary Schneiedr MD Work Phone: [facility]07-28-2025 13:30-0400 Body fijxmp89.65 kgMary Schneider MD Work Phone: [address] [place], [place] 7254407-28-2025 13:30-0400 Diastolic blood mm[Hg]Mary Schneider MD Work Phone: 1(105)[phone]07-28-2025 13:30-0400 Systolic blood kocwyccs894 mm[Hg]Mary Schneider MD Work Phone: [facility]07-10-2025 09:57-0400 Body tuhsiqdsqvi03 [degF]Demetrius Cooper MD Work Phone: [facility]07-10-2025 09:57-0400 Body .02 kgDemetrius Cooper MD Work Phone: [facility]07-10-2025 09:57-0400 Diastolic blood mctjwuwr95 mm[Hg]Demetrius Cooper MD Work Phone: [facility]07-10-2025 09:57-0400 Heart rate68 /minSleno Cooper MD Work Phone: [facility]07-10-2025 09:57-0400 Respiratory rate18 /Rosalba Cooper MD Work Phone: 1(878)[address]07-10-2025 09:57-0400 SaO2% (BldA) [Mass fraction]98 %Demetrius Cooper MD Work Phone: 1(007)[address]07-10-2025 09:57-0400 Systolic blood lfbquubd349 mm[Hg]Demetrius Cooper MD Work Phone: 1(327)[address]05-28-2025 13:56-0400 Body itcpnx276.1 cmFredric Itzkowitz DO Work Phone: 1(573)[address] [place], [place] 1683405-28-2025 13:56-0400Body mass index (BMI) [Ratio]24.63 kg/p4Qazfcqv Itzkowitz DO Work Phone: 1(375)[address] [place], [place] 1683405-28-2025 13:56-0400Body mibjfs22.13 kgFredric Itzkowitz DO Work Phone: 1(157)[address] [place], [place] 1683405-21-2025 14:58-0400Body .64 Alexsandra Cooper MD Work Phone: 1(741)[address]05-20-2025 12:00-0400 Diastolic blood ykbwlgcv40 mm[Hg]Demetrius Cooper MD Work Phone: 1(185)[address]05-20-2025 12:00-0400 Heart rate63 /Rosalba Cooper MD Work Phone: 1(503)[address]05-20-2025 12:00-0400 Respiratory rate16 /Rosalba Cooper MD Work Phone: 1(451)[address]05-20-2025 12:00-0400 SaO2% (BldA) [Mass fraction]95 %Demetrius Cooper MD Work Phone: 1(785)[address]05-20-2025 12:00-0400 Systolic blood mowgzvil749 mm[Hg]Demetrius Cooper MD Work Phone: 1(307)[address]05-20-2025 11:30-0400 Inhaled oxygen flow rate4 L/minSleno Cooper MD Work Phone: [facility]05-20-2025 10:15-0400 Body ibzsxm944.1 cmSleno Cooper MD Work Phone: [facility]05-20-2025 10:15-0400 Body hhbyufpiqpi57.3 [degF]Demetrius Cooper MD Work Phone: [facility]05-20-2025 10:15-0400 Body ckobtm17.13 kgDemetrius Cooper MD Work Phone: [facility]05-15-2025 13:47-0400 Body kzvsbu400.1 cmAngela Lowe PA Work Phone: [facility] SystemsMljwwocnch51-56-0409 13:47-0400Body mass index (BMI) [Ratio]24.63 kg/y9Glivgz Lowe PA Work Phone: [facility] SystemsSrhnidtzgc84-48-6635 13:47-0400Body .13 kgAngela Lowe PA Work Phone: [facility] SystemsDawdjbfjow27-78-8830 13:47-0400Diastolic blood sggttrqo04 mm[Hg]Missy Lowe PA Work Phone: [facility] SystemsTttvbfrqzh91-07-7492 13:47-0400Systolic blood erkpunsp482 mm[Hg]Missy Lowe PA Work Phone: [facility] SystemsHnloetogwy44-12-5443 13:20-0400Body dduewc298.1 cmFredric Itzkowitz DO Work Phone: [facility] SystemsPluhghmtfj27-57-6764 13:20-0400Body mass index (BMI) [Ratio]24.96 kg/z2Xkhcgwl Itzkowitz DO Work Phone: [facility] SystemsWpyjniucug89-33-9201 13:20-0400Body niipkb56.04 kgFredric Itzkowitz DO Work Phone: [facility] SystemsLaqzprolsv09-88-9895 13:20-0400Diastolic blood igyfrvlo39 mm[Hg]Veena Itzkowitz DO Work Phone: [facility] SystemsEdzcjdigik30-48-6459 13:20-0400Systolic blood iolowvld42 mm[Hg]Veena Itzkowitz DO Work Phone: [facility] SystemsMpdvvpbfgo36-03-2190 14:55-0400Body scajlc789.1 Alexsandra Cooper MD Work Phone: 1(512)[address]05-13-2025 14:55-0400 Body mass index (BMI) [Ratio]24.6 kg/w6ZgaumeDemetrius Cooper MD Work Phone: 1(709)[address]05-13-2025 14:55-0400 Body elkjcyhylou06.8 [degF]Demetrius Cooper MD Work Phone: 1(361)[address]05-13-2025 14:55-0400 Body brfisg54.13 kgDemetrius Cooper MD Work Phone: 1(256)[address]05-13-2025 14:55-0400 Diastolic blood huppmnfa61 mm[Hg]Demetrius Cooper MD Work Phone: 1(909)[address]05-13-2025 14:55-0400 Heart rate66 /Rosalba Cooper MD Work Phone: 1(475)[address]05-13-2025 14:55-0400 Systolic blood ajsnfsur44 mm[Hg]Demetrius Cooper MD Work Phone: 1(089)[address]05-07-2025 21:13-0400 Body zucfkixxfpp01.6 [degF]Demetrius Cooper MD Work Phone: 1(926)9[address]05-07-2025 21:13-0400 Diastolic blood wyadkygw82 mm[Hg]Demetrius Cooper MD Work Phone: 1(955)9[address]05-07-2025 21:13-0400 Heart rate68 /Rosalba Cooper MD Work Phone: 1(346)281-[address] [place], [place] 8475605-07-2025 21:13-0400 Respiratory rate18 /minSleno Cooper MD Work Phone: 1(039)360-[address] [place], [place] 8475605-07-2025 21:13-0400 SaO2% (BldA) [Mass fraction]96 %Demetrius Cooper MD Work Phone: 1(579)180-[address] [place], [place] 8475605-07-2025 21:13-0400 Systolic blood lncrejnu068 mm[Hg]Demetrius Cooper MD Work Phone: 1(415)[address]05-07-2025 15:13-0400 Body emtbbs597.1 Alexsandra Cooper MD Work Phone: 1(236)[address]05-07-2025 15:13-0400 Body whowec61 kgDemetrius Cooper MD Work Phone: 1(017)75739 [address]04-28-2025 13:07-0400 Body .1 cmMary Schneider MD Work Phone: 1(590)167-[address] [place], [place] 0391004-28-2025 13:07-0400 Body mass index (BMI) [Ratio]24.84 kg/l6AspygofMary Schneider MD Work Phone: 1(273)501-[address] [place], [place] 0391004-28-2025 13:07-0400 Body duirdmjtwhy66.8 [degF]Mary Schneider MD Work Phone: 1(027)879-[address] [place], [place] 0391004-28-2025 13:07-0400 Body kduvek52.72 kgMary Schneider MD Work Phone: 1(181)148-[address] [place], [place] 0391004-28-2025 10:14-0400 Body .56 Alexsandra Cooper MD Work Phone: 1(626)678-89[facility]04-28-2025 10:14-0400 Body mass index (BMI) [Ratio]25.7 kg/y1AqifykDemetrius Cooper MD Work Phone: 1(843)44839 [address]04-28-2025 10:14-0400 Body thrces15.03 kgDemetrius Cooper MD Work Phone: 1(396)996-[address] [place], [place] 8475604-28-2025 10:14-0400 Diastolic blood atnxamse36 mm[Hg]Demetrius Cooper MD Work Phone: 1(882)[address] [place], [place] 1788104-28-2025 10:14-0400 Heart rate76 /Rosalba Cooper MD Work Phone: 1(928)[address] [place], [place] 1788104-28-2025 10:14-0400 SaO2% (BldA) [Mass fraction]98 %Demetrius Cooper MD Work Phone: 1(691)[address] [place], [place] 1788104-28-2025 10:14-0400 Systolic blood uxepulni843 mm[Hg]Demetrius Cooper MD Work Phone: 1(124)[address] [place], [place] 1788104-09-2025 09:49-0400 Body iootlppnuih47.5 [degF]Demetrius Cooper MD Work Phone: 1(474)[address] [place], [place] 1788104-09-2025 09:49-0400 Body ukpphb68.12 kgDemetrius Cooper MD Work Phone: 1(910)[address] [place], [place] 1788104-09-2025 09:49-0400 Diastolic blood selfmkyq72 mm[Hg]Demetrius Cooper MD Work Phone: 1(150)[address] [place], [place] 1788104-09-2025 09:49-0400 Heart rate94 /Rosalba Cooper MD Work Phone: 1(663)[address] [place], [place] 1788104-09-2025 09:49-0400 Respiratory rate20 /Rosalba Cooper MD Work Phone: 1(585)[address] [place], [place] 1788104-09-2025 09:49-0400 SaO2% (BldA) [Mass fraction]98 %Demetrius Cooper MD Work Phone: 1(795)[address] [place], [place] 1788104-09-2025 09:49-0400 Systolic blood idaghevp213 mm[Hg]Demetrius Cooper MD Work Phone: 1(706)[address] [place], [place] 1788104-07-2025 12:53-0400 Body ulqoxr506.64 cmSleno Cooper MD Work Phone: 1(067)[address] [place], [place] 1788104-07-2025 11:36-0400 Body [degF]Demetrius Cooper MD Work Phone: 1(012)41439 [address]04-07-2025 11:36-0400 Diastolic blood pewirhwn78 mm[Hg]Demetrius Cooper MD Work Phone: 1(103)[address] [place], [place] 1788104-07-2025 11:36-0400 Heart rate76 /oRsalba Cooper MD Work Phone: 1(067)[address] [place], [place] 1788104-07-2025 11:36-0400 Respiratory rate18 /Rosalba Cooper MD Work Phone: 1(586)[address] [place], [place] 1788104-07-2025 11:36-0400 SaO2% (BldA) [Mass fraction]96 %Demetrius Cooper MD Work Phone: 1(629)[address] [place], [place] 1788104-07-2025 11:36-0400 Systolic blood mm[Hg]Demetrius Cooper MD Work Phone: 1(795)[address] [place], [place] 1788104-07-2025 04:13-0400 Body fbkfmy53.9 kgDemetrius Cooper MD Work Phone: 1(925)[address] [place], [place] 1788104-06-2025 19:00-0400 Diastolic blood ldtgoqdy13 mm[Hg]Demetrius Cooper MD Work Phone: 1(421)[address] [place], [place] 1788104-06-2025 19:00-0400 Heart rate61 /Rosalba Cooper MD Work Phone: 1(883)[address] [place], [place] 1788104-06-2025 19:00-0400 Respiratory rate18 /Rosalba Cooper MD Work Phone: 1(158)[address] [place], [place] 1788104-06-2025 19:00-0400 SaO2% (BldA) [Mass fraction]92 %Demetrius Cooper MD Work Phone: 1(923)[address] [place], [place] 1788104-06-2025 19:00-0400 Systolic blood okfmrrbp788 mm[Hg]Demetrius Cooper MD Work Phone: 1(806)[address] [place], [place] 1788104-06-2025 18:04-0400 Body mmvkeoxelsk69.1 [degF]Demetrius Cooper MD Work Phone: 1(326)[address] [place], [place] 1788104-06-2025 16:57-0400 Body .56 Alexsandra Cooper MD Work Phone: 1(071)[address] [place], [place] 1788104-06-2025 16:57-0400 Body beokuz21.6 kgDemetrius Cooper MD Work Phone: 1(285)[address] [place], [place] 1788104-03-2025 08:23-0400 Body .64 Alexsandra Cooper MD Work Phone: 1)[address] [place], [place] 1788104-03-2025 08:23-0400 Body agrjldhprdr77.3 [degF]Demetrius Cooper MD Work Phone: 1(056)[address] [place], [place] 1788104-03-2025 08:23-0400 Body zmbkoa89.25 kgDemetrius Cooper MD Work Phone: 1(166)[address] [place], [place] 1788104-03-2025 08:23-0400 Diastolic blood htuihbey01 mm[Hg]Demetrius Cooper MD Work Phone: 1(687)[address] [place], [place] 1788104-03-2025 08:23-0400 Heart rate90 /Rosalba Cooper MD Work Phone: 1(553)[address] [place], [place] 1788104-03-2025 08:23-0400 Respiratory rate18 /Rosalba Cooper MD Work Phone: 1(204)[address] [place], [place] 1788104-03-2025 08:23-0400 SaO2% (BldA) [Mass fraction]95 %Demetrius Cooper MD Work Phone: 1(715)[address] [place], [place] 1788104-03-2025 08:23-0400 Systolic blood wwkaalfb665 mm[Hg]Demetrius Cooper MD Work Phone: 1(941)[address] [place], [place] 1788104-02-2025 09:18-0400 Body ipojnt63.4 Franklyn Cooper MD Work Phone: 1(024)[address] [place], [place] 1788103-27-2025 15:40-0400 Body cyktoi311.64 Alexsandra Cooper MD Work Phone: 1(363)[address] [place], [place] 1788103-27-2025 08:25-0400 Body oktnkuhucnf22.8 [degF]Demetrius Cooper MD Work Phone: 1(670)[address] [place], [place] 1788103-27-2025 08:25-0400 Diastolic blood fuyajjwo78 mm[Hg]Demetrius Cooper MD Work Phone: 1(669)[address] [place], [place] 1788103-27-2025 08:25-0400 Heart rate68 /Rosalba Cooper MD Work Phone: 1(419)[address] [place], [place] 1788103-27-2025 08:25-0400 Respiratory rate18 /Rosalba Cooper MD Work Phone: 1(959)[address] [place], [place] 1788103-27-2025 08:25-0400 SaO2% (BldA) [Mass fraction]94 %Demetrius Cooper MD Work Phone: 1(282)[address] [place], [place] 1788103-27-2025 08:25-0400 Systolic blood braqvmtz193 mm[Hg]Demetrius Cooper MD Work Phone: 1(479)[address] [place], [place] 1788103-26-2025 09:28-0400 Body iujqwb62.1 kgDemetrius Cooper MD Work Phone: 1(509)[address] [place], [place] 1788103-26-2025 09:16-0400 Body xauoxt37.1 kgDemetrius Cooper MD Work Phone: 1(434)[address] [place], [place] 1788103-26-2025 09:16-0400 Diastolic blood mzwyxggn86 mm[Hg]Demetrius Cooper MD Work Phone: 1(573)[address] [place], [place] 1788103-26-2025 09:16-0400 Heart rate77 /Rosalba Cooper MD Work Phone: 1(356)[address] [place], [place] 1788103-26-2025 09:16-0400 Respiratory rate18 /Rosalba Cooper MD Work Phone: 1(015)[address] [place], [place] 1788103-26-2025 09:16-0400 SaO2% (BldA) [Mass fraction]97 %Demetrius Cooper MD Work Phone: 1(409)[address] [place], [place] 1788103-26-2025 09:16-0400 Systolic blood ozcvdxrg288 mm[Hg]Demetrius Cooper MD Work Phone: 1(361)[address] [place], [place] 1788103-20-2025 09:58-0400 Body yocwmy797.64 Alexsandra Cooper MD Work Phone: 1(574)[address] [place], [place] 1788103-20-2025 08:27-0400 Body vjpuptauulx77.9 [degF]Demetrius Cooper MD Work Phone: 1(343)[address] [place], [place] 1788103-20-2025 08:27-0400 Diastolic blood uilrnwwz30 mm[Hg]Demetrius Cooper MD Work Phone: 1(855)[address] [place], [place] 1788103-20-2025 08:27-0400 Heart rate85 /Rosalba Cooper MD Work Phone: 1(172)[address] [place], [place] 1788103-20-2025 08:27-0400 Respiratory rate18 /Rosalba Cooper MD Work Phone: 1(304)[address] [place], [place] 1788103-20-2025 08:27-0400 SaO2% (BldA) [Mass fraction]95 %Demetrius Cooper MD Work Phone: 1(899)[address] [place], [place] 1788103-20-2025 08:27-0400 Systolic blood rvbeltdk777 mm[Hg]Demetrius Cooper MD Work Phone: 1(720)[address] [place], [place] 1788103-14-2025 16:29-0400 Body verafi545.64 Alexsandra Cooper MD Work Phone: 1(000)[address] [place], [place] 1788103-13-2025 08:28-0400 Body wncsqjteaqe74.1 [degF]Demetrius Cooper MD Work Phone: 1(461)[address] [place], [place] 1788103-13-2025 08:28-0400 Body achrdl94.2 kgDemetrius Cooper MD Work Phone: 1(366)[address] [place], [place] 1788103-13-2025 08:28-0400 Diastolic blood mwmrtrhy15 mm[Hg]Demetrius Cooper MD Work Phone: 1(524)[address] [place], [place] 1788103-13-2025 08:28-0400 Heart rate62 /Rosalba Cooper MD Work Phone: 1(380)[address]03-13-2025 08:28-0400 Respiratory rate18 /Rosalba Cooper MD Work Phone: 1419)[address] [place], [place] 1788103-13-2025 08:28-0400 SaO2% (BldA) [Mass fraction]95 %Demetrius Cooper MD Work Phone: 1419)[address] [place], [place] 1788103-13-2025 08:28-0400 Systolic blood gmtppydu232 mm[Hg]Demetrius Cooper MD Work Phone: 1(419)[address] [place], [place] 1788103-12-2025 08:23-0400 Body .6 [degF]Demetrius Cooper MD Work Phone: 1(591)[address] [place], [place] 1788103-12-2025 08:23-0400 Body whrfoh66.48 kgDemetrius Cooper MD Work Phone: 1(437)[address] [place], [place] 1788103-12-2025 08:23-0400 Diastolic blood qqojkxhk72 mm[Hg]Demetrius Cooper MD Work Phone: 1(743)[address] [place], [place] 1788103-12-2025 08:23-0400 Heart rate64 /Rosalba Cooper MD Work Phone: 1(328)[address] [place], [place] 1788103-12-2025 08:23-0400 Respiratory rate20 /Rosalba Cooper MD Work Phone: 1(316)[address] [place], [place] 1788103-12-2025 08:23-0400 SaO2% (BldA) [Mass fraction]96 %Demetrius Cooper MD Work Phone: 1(836)[address] [place], [place] 1788103-12-2025 08:23-0400 Systolic blood wondrdvh939 mm[Hg]Demetrius Cooper MD Work Phone: 1(892)[address] [place], [place] 1788103-06-2025 10:18-0500 Body xawxmb92.38 kgDemetrius Cooper MD Work Phone: 1(140)[address] [place], [place] 1788103-06-2025 08:46-0500 Body lexlmwgpwro22.8 [degF]Demetrius Cooper MD Work Phone: 1(601)[address]03-06-2025 08:46-0500 Body stnwte67.84 kgDemetrius Cooper MD Work Phone: 1(227)[address]03-06-2025 08:46-0500 Diastolic blood bewuxysc46 mm[Hg]Demetrius Cooper MD Work Phone: 1(608)[address] [place], [place] 1788103-06-2025 08:46-0500 Heart rate68 /Rosalba Cooper MD Work Phone: 1(839)[address] [place], [place] 1788103-06-2025 08:46-0500 Respiratory rate20 /Rosalba Cooper MD Work Phone: 1(929)[address] [place], [place] 1788103-06-2025 08:46-0500 SaO2% (BldA) [Mass fraction]97 %Demetrius Cooper MD Work Phone: 1(935)[address] [place], [place] 1788103-06-2025 08:46-0500 Systolic blood mgfoqbfy815 mm[Hg]Demetrius Cooper MD Work Phone: 1(421)[address] [place], [place] 1788103-04-2025 08:50-0500 Body ovjdav443.64 cmSleno Cooper MD Work Phone: 1(800)[address] [place], [place] 1788103-03-2025 14:33-0500 Diastolic blood enjkevci55 mm[Hg]Demetrius oCoper MD Work Phone: 1(710)[address] [place], [place] 1788103-03-2025 14:33-0500 Heart rate59 /Rosalba Cooper MD Work Phone: 1(371)[address]03-03-2025 14:33-0500 Respiratory rate16 /Rosalba Cooper MD Work Phone: 1(329)[address] [place], [place] 1788103-03-2025 14:33-0500 SaO2% (BldA) [Mass fraction]96 %Demetrius Cooper MD Work Phone: 1(663)[address]03-03-2025 14:33-0500 Systolic blood eekezxyf418 mm[Hg]Demetrius Cooper MD Work Phone: 1(637)[address]03-03-2025 13:48-0500 Body zuyzywyyerp41.3 [degF]Demetrius Cooper MD Work Phone: 1(556)[address]03-03-2025 10:40-0500 Body gxsbsy938.1 Alexsandra Cooper MD Work Phone: 1(673)[address] [place], [place] 1788103-03-2025 10:40-0500 Body stwuze96.11 kgDemetrius Cooper MD Work Phone: 1(560)[address] [place], [place] 1788102-27-2025 16:08-0500 Body tzxvba471.64 Alexsandra Cooper MD Work Phone: 1(894)[address] [place], [place] 1788102-27-2025 08:37-0500 Body soifxmlcdwm63.8 [degF]Demetrius Cooper MD Work Phone: 1(555)[address] [place], [place] 1788102-27-2025 08:37-0500 Body .01 kgDemetrius Cooper MD Work Phone: 1(148)[address] [place], [place] 1788102-27-2025 08:37-0500 Diastolic blood dukbtsnh86 mm[Hg]Demetrius Cooper MD Work Phone: 1(954)[address] [place], [place] 1788102-27-2025 08:37-0500 Heart rate64 /Rosalba Cooper MD Work Phone: 1(837)[address] [place], [place] 1788102-27-2025 08:37-0500 Respiratory rate18 /Rosalba Cooper MD Work Phone: 1(426)[address] [place], [place] 1788102-27-2025 08:37-0500 SaO2% (BldA) [Mass fraction]95 %Demetrius Cooper MD Work Phone: 1(488)[address] [place], [place] 1788102-27-2025 08:37-0500 Systolic blood nhjjcdis136 mm[Hg]Demetrius Cooper MD Work Phone: 1(582)[address] [place], [place] 1788102-26-2025 08:41-0500 Body smaodkhuxvp07.3 [degF]Demetrius Cooper MD Work Phone: 1(418)[address] [place], [place] 1788102-26-2025 08:41-0500 Body .65 kgDemetrius Cooper MD Work Phone: 1(861)[address] [place], [place] 1788102-26-2025 08:41-0500 Diastolic blood tbbvfiou55 mm[Hg]Demetrius Cooper MD Work Phone: 1(982)[address] [place], [place] 1788102-26-2025 08:41-0500 Heart rate61 /Rosalba Cooper MD Work Phone: 1(692)[address] [place], [place] 1788102-26-2025 08:41-0500 Respiratory rate20 /Rosalba Cooper MD Work Phone: 1(792)[address] [place], [place] 1788102-26-2025 08:41-0500 SaO2% (BldA) [Mass fraction]96 %Demetrius Cooper MD Work Phone: 1(582)[address] [place], [place] 1788102-26-2025 08:41-0500 Systolic blood fqzridxb329 mm[Hg]Demetrius Cooper MD Work Phone: 1(861)[address] [place], [place] 1788102-20-2025 11:06-0500 Body cjoyok785.64 cmSleno Cooper MD Work Phone: 1(738)[address] [place], [place] 1788102-20-2025 08:36-0500 Body rgwllbrnfge55.6 [degF]Demetrius Cooper MD Work Phone: 1(188)[address] [place], [place] 1788102-20-2025 08:36-0500 Body hifhfh60.83 kgDemetrius Cooper MD Work Phone: 1(272)[address] [place], [place] 1788102-20-2025 08:36-0500 Diastolic blood nrofllyq63 mm[Hg]Demetrius Cooper MD Work Phone: 1(706)[address] [place], [place] 1788102-20-2025 08:36-0500 Heart rate63 /Rosalba Cooper MD Work Phone: 1(134)[address] [place], [place] 1788102-20-2025 08:36-0500 Respiratory rate18 /Rosalba Cooper MD Work Phone: 1(981)[address] [place], [place] 1788102-20-2025 08:36-0500 SaO2% (BldA) [Mass fraction]95 %Demetrius Cooper MD Work Phone: 1(660)[address]02-20-2025 08:36-0500 Systolic blood ixegklml728 mm[Hg]Demetrius Cooper MD Work Phone: 1(309)[address] [place], [place] 1788102-06-2025 14:58-0500 Body orbhit756.56 cmSleno Cooper MD Work Phone: 1(836)[address] [place], [place] 1788102-06-2025 14:58-0500 Body gqulkxlsjwo66.5 [degF]Demetrius Cooper MD Work Phone: 1(832)[address] [place], [place] 1788102-06-2025 14:58-0500 Body ykuceo70 kgDemetrius Cooper MD Work Phone: 1(600)[address] [place], [place] 1788102-06-2025 14:58-0500 Diastolic blood aerdlmcv98 mm[Hg]Demetrius Cooper MD Work Phone: 1(122)[address] [place], [place] 1788102-06-2025 14:58-0500 Heart rate50 /Rosalba Cooper MD Work Phone: 1(286)[address]02-06-2025 14:58-0500 Respiratory rate20 /Rosalba Cooper MD Work Phone: 1(906)[address] [place], [place] 1788102-06-2025 14:58-0500 SaO2% (BldA) [Mass fraction]95 %Demetrius Cooper MD Work Phone: 1(627)[address] [place], [place] 1788102-06-2025 14:58-0500 Systolic blood gocohgkk379 mm[Hg]Demetrius Cooper MD Work Phone: 1(558)[address]02-04-2025 14:38-0500 Body dwekqt044 cmAlrenny Bell MD Work Phone: [facility] SystemsHmayzvmhru08-78-7648 14:38-0500Body mass index (BMI) [Ratio]30.11 kg/a1GuxoaxMatteo Bell MD Work Phone: noUniversity HospitalPgswhgnqlt90-65-5376 14:38-0500Body dsyfak31.11 kgMatteo Bell MD Work Phone: [facility] SystemsMmfwdfxyov74-96-5851 14:38-0500Diastolic blood javijqcw28 mm[Hg]Matteo Bell MD Work Phone: [facility] SystemsDsgnubjbya09-47-8759 14:38-0500Systolic blood gboqmjus625 mm[Hg]Matteo Bell MD Work Phone: [facility] SystemsSzdfveqbke29-98-0731 10:45-0500Body ctbfja914.64 Alexsandra Cooper MD Work Phone: 1(866)[address]01-29-2025 10:45-0500 Body mass index (BMI) [Ratio]27.6 kg/k0VtqltsDemetrius Cooper MD Work Phone: 1(688)[address] [place], [place] 1788101-29-2025 10:45-0500 Body mzkdogmsopo59.6 [degF]Demetrius Cooper MD Work Phone: 1(127)[address] [place], [place] 1788101-29-2025 10:45-0500 Body qxwoka44.56 kgDemetrius Cooper MD Work Phone: 1(932)[address]01-29-2025 10:45-0500 Diastolic blood pxhhyzhh38 mm[Hg]Demetrius Cooper MD Work Phone: 1(758)[address] [place], [place] 1788101-29-2025 10:45-0500 Heart rate69 /Rosalba Cooper MD Work Phone: 1(013)[address] [place], [place] 1788101-29-2025 10:45-0500 Respiratory rate20 /Rosalba Cooper MD Work Phone: 9(989)[address]01-29-2025 10:45-0500 Systolic blood tfzmfkpi832 mm[Hg]Demetrius Cooper MD Work Phone: 1(792)[address] [place], [place] 1788101-29-2025 09:53-0500 Body hvwuio628.64 Alexsandra Cooper MD Work Phone: 7(321)207[facility]88[facility]01-29-2025 09:53-0500 Body mass index (BMI) [Ratio]27.6 kg/z7HtmwtuDemetrius Cooper MD Work Phone: 1(419)483-[address] [place], [place] 8475601-29-2025 09:53-0500 Body plsqqlgnzru61.6 [degF]Demetrius Cooper MD Work Phone: 1(074)[address]01-29-2025 09:53-0500 Body kpivcg79.56 kgDemetrius Cooper MD Work Phone: 1(193)[address]01-29-2025 09:53-0500 Diastolic blood mm[Hg]Demetrius Cooper MD Work Phone: 1(168)[address]01-29-2025 09:53-0500 Heart rate69 /Rosalba Cooper MD Work Phone: 1(690)[address]01-29-2025 09:53-0500 Respiratory rate20 /Rosalba Cooper MD Work Phone: 1(684)[address] [place], [place] 1788101-29-2025 09:53-0500 SaO2% (BldA) [Mass fraction]96 %Demetrius Cooper MD Work Phone: 1(845)[address]01-29-2025 09:53-0500 Systolic blood mm[Hg]Demetrius Cooper MD Work Phone: 1(720)[address]01-20-2025 14:13-0500 Diastolic blood mocjmvwl67 mm[Hg][address] 06-05-2024 14:13-0500Heart rate65 /minC[facility] [address] [place] [address] 06-05-2024 14:13-0500Respiratory rate16 /minCmc [address] [place], [place] 0468401-20-2025 14:13-4575ReT1% (BldA) [Mass fraction]96 %[address]01-20-2025 14:13-0500Systolic blood kbeerdge026 mm[Hg][address]01-20-2025 12:22-0500Body qqfsdsurbhl07.2 [degF][address]01-14-2025 11:16-0500Body height 162.6 cmMary Schneider MD Work Phone: 1(051)362-[address] [place], [place] 0391001-14-2025 11:16-0500 Body mass index (BMI) [Ratio]28.89 kg/c8OlqrdmsMary Schneider MD Work Phone: 1(620)636-[address] [place], [place] 0391001-14-2025 11:16-0500 Body nafloaxqonn99.2 [degF]Mary Schneider MD Work Phone: 1(250)5-[address] [place], [place] 0391001-14-2025 11:16-0500 Body ugbrgn60.34 kgMary Schneider MD Work Phone: 1(745)[address]12-26-2024 10:00-0500 Body jzdczslilqx19.7 [degF]Mary Schneider MD Work Phone: 1(084)[address]12-26-2024 10:00-0500 Diastolic blood kpdtsddi09 mm[Hg]Mary Schneider MD Work Phone: 1(730)6-[address] [place], [place] 0391012-26-2024 10:00-0500 Heart rate61 /Guerda Schneider MD Work Phone: 1(455)387-[address] [place], [place] 0391012-26-2024 10:00-0500 Respiratory rate14 /Guerda Schneider MD Work Phone: 1(841)[address]12-26-2024 10:00-0500 SaO2% (BldA) [Mass fraction]95 %Mary Schneider MD Work Phone: 1(150)9-[address] [place], [place] 0391012-26-2024 10:00-0500 Systolic blood qqmngsyd878 mm[Hg]Mary Schneider MD Work Phone: 1(747)1-[address] [place], [place] 0391012-26-2024 06:08-0500 Body kkaeto271.6 cmMary Schneider MD Work Phone: 1(376)[address]12-26-2024 06:08-0500 Body mass index (BMI) [Ratio]29.52 kg/j5TanpukyMary Schneider MD Work Phone: [facility]12-26-2024 06:08-0500 Body rmewsk69 kgMary Schneider MD Work Phone: [facility]11-22-2024 10:40-0500 Body chgfep318.6 cmMary Schneider MD Work Phone: [facility]11-22-2024 10:40-0500 Body mass index (BMI) [Ratio]29.18 kg/c9XlngfhwMary Schneider MD Work Phone: [facility]11-22-2024 10:40-0500 Body xyetnk35.11 kgMary Schneider MD Work Phone: [facility]11-13-2024 10:06-0500 Body pvehsv515.6 cmLuc Ham MD Work Phone: [place] [address]Srlhtganeu67-93-1623 10:06-0500Body mass index (BMI) [Ratio]29.7 kg/m1WbkkjpLuc aHm MD Work Phone: [place] [address]Nvqxbdattn30-73-4248 10:06-0500Body .47 kgLuc Ham MD Work Phone: [place] [address]Rajpgajhlk66-33-6040 10:06-0500Diastolic blood zbeqyinm64 mm[Hg]Luc Ham MD Work Phone: [place] [address]Ikqlnilksb18-82-0583 10:06-0500Systolic blood hjfqvfpy621 mm[Hg]Luc Ham MD Work Phone: [place] [address]Tkslxvtbew30-05-4959 14:06-0500Blood Pressure LocationMuella Henderson 875-5793Vwmebg-GfdyjTr[facility]11-07-2024 14:06-0500Diastolic blood sketioyd67 mm[Hg]Inez Bautistaminclive 811-9197Carijx-JsxynTrinity Health System [facility] Campus11-07-2024 14:06-0500Heart rate71 /minMuhammad Sarmini 413-3975Nyeyhx-ZytogTrinity Health System [facility] Campus11-07-2024 14:06-0500Respiratory rate16 /minMuhammad Sarmini 879-0023Eaqqvj-KdfrnTrinity Health [facility]11-07-2024 14:06-0500Systolic blood bfbdfqab400 mm[Hg]Wiley Lilymini 171-7086Xreajd-CwafvTrinity Health System [facility] Campus10-23-2024 09:25-0400Body fwbuqv432.6 cmLuc Ham MD Work Phone: 1(020)[address] [place], [place] 9324510-23-2024 09:25-0400Body mass index (BMI) [Ratio]29.87 kg/d1KejkrxLuc Ham MD Work Phone: 1(713)[address] [place], [place] 9324510-23-2024 09:25-0400Body .93 kgLuc Ham MD Work Phone: 1(383)[address] [place], [place] 9324510-23-2024 09:25-0400Diastolic blood aahnemkq44 mm[Hg]Luc Ham MD Work Phone: 1(609)[address] [place], [place] 9324510-23-2024 09:25-0400Systolic blood hlgzozkr715 mm[Hg]Luc Ham MD Work Phone: 1(798)[address] [place], [place] 9324510-02-2024 14:19-0400Body legkhg197.6 Edgar Ham MD Work Phone: 1(795)[address] [place] [address]-02-2024 14:19-0400Body mass index (BMI) [Ratio]29.87 kg/p8ZenovqLuc Ham MD Work Phone: 1(713)[address] [place] [address]-02-2024 14:19-0400Body .93 kgLuc Ham MD Work Phone: 1(498)[address] [place], [place] [address] [address]Xocwrvglbz38-88-4881 14:19-0400Diastolic blood cmwnzkfy41 mm[Hg]Luc Ham MD Work Phone: 1(844)559[place] [address]-02-2024 14:19-0400Systolic blood ftweimck507 mm[Hg]Luc Ham MD Work Phone: [facility] SystemsKnuqzzeufm54-29-4203 08:59-0400Body .6 cmAngela Lowe PA Work Phone: [facility] SystemsXjrhyavcar75-09-4686 08:59-0400Body mass index (BMI) [Ratio]29.7 kg/q3Pumdpi Lowe PA Work Phone: 1(494)[facility] [place], [place] [address]Noyoccetkx86-67-7263 08:59-0400Body .47 kgAngela Lowe PA Work Phone: 1(001)562-[address] [place], [place] [address]Ziohizqbjn04-49-7594 08:59-0400Diastolic blood wapiovlh79 mm[Hg]Missy Lowe PA Work Phone: 1(280)543-[address] [place], [place] [address]Czphutvedi29-07-4915 08:59-0400Systolic blood mm[Hg]Missy Lowe PA Work Phone: 1(891)[facility] [place], [place] [address]Ibeyipbqya64-23-6410 13:07-0400Body .6 cmLuc Ham MD Work Phone: [facility] SystemsNpsumbnwyb30-42-9885 13:07-0400Body mass index (BMI) [Ratio]29.52 kg/b0KnmkcbLuc Ham MD Work Phone: 1(344)[facility]-[address] [place], [place] [address]Nnqzltlovz06-69-2123 13:07-0400Body psalgs94.02 kgLuc Ham MD Work Phone: 1(411)[address] [place], [place] 9324509-17-2024 13:07-0400Diastolic blood lopuoxfp03 mm[Hg]Luc Ham MD Work Phone: [facility] SystemsRjsgtrshzc05-07-6098 13:07-0400Systolic blood jducfrlu360 mm[Hg]Luc Ham MD Work Phone: [facility] SystemsMyamggtsak79-86-0998 14:32-0400Blood Pressure [facility] Lilyaditi 901-9127Rtsyjo-OdgblTrinity Health System [facility] Campus06-06-2024 14:32-0400Diastolic blood ztdijtzo91 mm[Hg]Wiley Sarmini 322-5529Rluzez-FpvlgTrinity Health System [facility] Campus06-06-2024 14:32-0400Heart rate73 /minMuhammad Sarmini [phone]-BnprmTrinity Health System [facility] Campus06-06-2024 14:32-0400Respiratory rate18 /minMuhammad Sarmini 298-0389Twxrwb-Xdtfq[address] [place], [place] 5381006-06-2024 14:32-0400Systolic blood kjciddxk753 mm[Hg]Wiley Sarmini 005-2086Kzhjbw-Rfdud[address] [place], [place] 5381005-03-2024 08:58-0400Blood Pressure LocationBeth Flori 237-0574Hrgtol-Smkcy[address] [place], [place] 5381005-03-2024 08:58-0400Body uoqnqzzxapk18.34 [degF]Anjali Flori 883-1513Zpkonm-Genil[address] [place], [place] 5381005-03-2024 08:58-0400Diastolic blood jxreztmw73 mm[Hg]Anjali Flori 748-3141Vunste-Hvumt[address] [place], [place] 5381005-03-2024 08:58-0400Heart rate66 /minBeth Flori 763-2351Fwlfes-Qvwyf[address] [place], [place] 5381005-03-2024 08:58-0400Systolic blood isimfvpp779 mm[Hg]Anjali Flori 975-5460Eljbhk-Kpykl[address] [place], [place] 5381004-18-2024 13:28-0400Body cxybom624.64 cmProm[facility]04-18-2024 13:28-0400Body mass index (BMI) [Ratio]28 kg/b6NpeglxkitPromedica Flower Hospital 09-02-2023 13:28-0400Body ujwpau88.69 kgPromedica Flower Hospital 09-02-2023 13:28-0400Diastolic blood ivzowogs98 mm[Hg][facility]04-18-2024 13:28-0400Heart rate67 /minPromedica Flower Hospital 09-02-2023 13:28-3679JvW5% (BldA) [Mass fraction]95 %[facility]04-18-2024 13:28-0400Systolic blood mm[Hg][facility]03-12-2024 10:23-0400Body tnjfdi894.64 cmPromedica Flower Hospital03-12-2024 10:23-0400Body mass index (BMI) [Ratio]27.5 kg/m2 [facility]03-12-2024 10:23-0400Body smrkkugacos78.9 [degF][facility]03-12-2024 10:23-0400Body vdytxv17.28 kg [facility]03-12-2024 10:23-0400Diastolic blood yzlanacx21 mm[Hg][facility]03-12-2024 10:23-0400Heart rate86 /min [facility]03-12-2024 10:23-0400Respiratory rate18 /min [facility]03-12-2024 10:23-0348YdP0% (BldA) [Mass fraction]97 %[facility]03-12-2024 10:23-0400Systolic blood mm[Hg][facility]01-15-2024 13:30-0500 Body sylyeo337.64 cmPjeffryjennyfer Boy Other [employer] Other 01-15-2024 13:30-0500Body mass index (BMI) [Ratio]27.6 kg/a9JmgqcGisele Brunson Other [employer] Other 01-15-2024 13:30-0500Body maeeoo89.57 kgGisele Brunson Other [employer] Other 01-15-2024 13:30-0500Diastolic blood lmizvxsp32 mm[Hg] Gisele Brunson Other [facility] Other 01-15-2024 13:30-9349NoI3% (BldA) [Mass fraction]94 % Gisele Brunson Other [facility] Other 01-15-2024 13:30-0500Systolic blood xchoeaqu943 mm[Hg] Gisele Brunson Other [facility] Other 01-09-2024 12:21-0500Blood Pressure LocationBeth Flori 651-1484Pazoep-IjrgqTr[facility]01-09-2024 12:21-0500Diastolic blood qavlnibk25 mm[Hg]Anjali Ruby 558-4612Sgoiux-ZotvoTrinity Health System [facility] Campus01-09-2024 12:21-0500Heart rate88 /minBeth Flori 671-8578Bucooh-XkfaxTrinity Health System [facility] Campus01-09-2024 12:21-0500Respiratory rate16 /minBeth Flori 294-5539Sthpdq-NwwjsTrinity Health System [facility] Campus01-09-2024 12:21-0500Systolic blood cyaakbne041 mm[Hg]Anjali Ruby 418-6616Xwjutq-XgxduTrinity Health System [facility] Campus11-16-2023 13:15-0500Body oztrjwbzlft45.11 [degF]Vaishali Pringle MD Work Phone: [facility]11-16-2023 13:15-0500Body vitvpx26.75 kgKingstonms Pino CASON Work Phone: [facility]11-16-2023 13:15-0500Diastolic blood lugmskqt92 mm[Hg]Vaishali Pringle MD Work Phone: [facility]11-16-2023 13:15-0500Heart rate70 /min Vaishali Pringle MD Work Phone: [facility]11-16-2023 13:15-0896VnD5% (BldA) [Mass fraction]97 %Vaishali Pringle MD Work Phone: [facility]11-16-2023 13:15-0500Systolic blood wtlxmohx384 mm[Hg]Vaishali Pringle MD Work Phone: [facility]10-25-2023 08:53-0400Blood Pressure LocationBeth Flori 356-0080Azypma-Sdfzl[address] [place], [place] 5381010-25-2023 08:53-0400Body epifyqhxmmy92.16 [degF]Anjalijane StaffordFlori 398-9700Jfjdnz-Sbalb[address] [place], [place] 5381010-25-2023 08:53-0400Diastolic blood eqhraanv59 mm[Hg]Anjalijane StaffordFlori 244-5092Jcqgyd-Rxhix[address] [place], [place] 5381010-25-2023 08:53-0400Heart rate63 /minBeth Flori 455-2701Dzjjxk-Syscc[address] [place], [place] 5381010-25-2023 08:53-0400Systolic blood mm[Hg]Anjali Flori 640-3412Tvslom-Jckpb[address] [place], [place] 5381010-12-2023 13:27-0400Blood Pressure LocationBeth Flori 274-8686Yotgss-Kocwm[address] [place], [place] 5381010-12-2023 13:27-0400Body xynkvqbjwcj79.06 [degF]Anjali Flori 351-3206Wgsyow-Blywz[address] [place], [place] 5381010-12-2023 13:27-0400Diastolic blood bcsovdpl35 mm[Hg]Anjali Flori 132-4422Oxnrxs-Lcbwv[address] [place], [place] 5381010-12-2023 13:27-0400Heart rate85 /minBeth Flori 251-7217Ufpqvz-YsteuTrinity Health System [facility] Campus10-12-2023 13:27-0400Respiratory rate16 /minAnjali Flori 523-3647Lpzsgb-OlyfgTrinity Health System [facility] Campus10-12-2023 13:27-0400Systolic blood sdoubnkm918 mm[Hg]Anjali Staffordmetz 424-0572Vqxgll-TqnhtTrinity Health System [facility] Campus09-15-2023 10:15-0400Body bktkco970.64 cmPegjennyfer Brunson Other [employer] Other 09-15-2023 10:15-0400Body mass index (BMI) [Ratio] 28.24 kg/i7Dtsbk Brunson Other [employer] Other 09-15-2023 10:15-0400Body cmgtuv50.38 kgPeflores Brunson Other [employer] Other 09-15-2023 10:15-0400Diastolic blood afxypvyk95 mm[Hg] Giselejennyfer Brunson Other [employer] Other 09-15-2023 10:15-5883PbD9% (BldA) [Mass fraction]95 % Gisele Brunson Other [employer] Other 09-15-2023 10:15-0400Systolic blood pmmnlgiu054 mm[Hg] Giselejennyfer Brunson Other [employer] Other 08-29-2023 09:22-0400Blood Pressure LocationAnjali Staffordmetz 263-4128Xthrau-XoftyTrinity Health System [facility] Campus08-29-2023 09:22-0400Body zajxkkyryhd77.98 [degF]Anjali Ruby 322-4207Axzuqf-BowxcTrinity Health System [facility] Campus08-29-2023 09:22-0400Diastolic blood tailkcqr05 mm[Hg]Anjali Ruby 101-1284Xdlqbr-SxzafTrinity Health System [facility] Campus08-29-2023 09:22-0400Heart rate69 /minAnjali Ruby 840-4926Eibgra-XdoknTrinity Health System [facility] Campus08-29-2023 09:22-0400Systolic blood vhqemkdy018 mm[Hg]Anjali Ruby 616-9145Ujbatl-MvshmTrinity Health System [facility] Campus05-30-2023 09:45-0400Body ygpcbd692.64 cmPegjennyfer Brunson Other [employer] Other 115129-02-6737 09:45-0400Body mass index (BMI) [Ratio] 27.92 kg/l0Grcygflores Brunson Other [employer] Other 05-30-2023 09:45-0400Body jigtcq97.47 kgPeflores Brunson Other [employer] Other 05-30-2023 09:45-0400Diastolic blood vduoksjl74 mm[Hg] Gisele Brunson Other [employer] Other 05-30-2023 09:45-3224VhE8% (BldA) [Mass fraction]95 % Gisele Brunson Other [employer] Other 05-30-2023 09:45-0400Systolic blood zebwtivi064 mm[Hg] Gisele Brunson Other [employer] Other 05-09-2023 18:14-0400Body wjapbrbxfhv98.86 [degF]Gordy Sánchez [facility]05-09-2023 16:28-0400Body mzlpyusqezn555.3 [degF]Gordy Sánchez [facility]05-09-2023 16:28-0400 Diastolic blood ndoepdxr96 mm[Hg]Gordy Sánchez [facility]05-09-2023 16:28-0400Heart rate79 /minGordy Sánchez [facility]05-09-2023 16:28-0400 Respiratory rate17 /minGordy Sánchez [facility]05-09-2023 16:28-6490SiF5% (BldA) [Mass fraction]93 %Gordy Sánchez [facility]05-09-2023 16:28-0400 Systolic blood mm[Hg]Gordy Sánchez [facility]05-09-2023 14:10-0400Body icimnu387.64 cmPamela Aditi Other [facility] Other 05-09-2023 14:10-0400Body mass index (BMI) [Ratio]29.7 kg/o0Bqvjqh Aditi Other [facility] Other 05-09-2023 14:10-0400Body epgoktlplli453 [degF]Griselda Pennington Other [facility] Other 05-09-2023 14:10-0400Body ddcwsu74.46 kgPageorgettelyssa Aditi Other [facility] Other 05-09-2023 14:10-0400Respiratory rate18 /minRicardolyssa Aditi Other [employer] Other 05-09-2023 14:10-5903OhO9% (BldA) [Mass fraction]93 % Griselda Pennington Other [facility] [facility] Other 03-15-2023 10:15-0400Body vmhvyu240.64 cmDawon Salazar Other [employer] Other 03-15-2023 10:15-0400Body mass index (BMI) [Ratio] 30.02 kg/a3Xidwpwon Salazar Other [facility] Other 03-15-2023 10:15-0400Body .37 kgDawon Salazar Other [facility] Other 03-15-2023 10:15-0400Diastolic blood kkmdjeah54 mm[Hg] Erwin Salazar Other [employer] Other 03-15-2023 10:15-3911YlJ2% (BldA) [Mass fraction]94 % Erwin Salazar Other [employer] Other 03-15-2023 10:15-0400Systolic blood ytyakhym805 mm[Hg] Erwin Salazar Other [employer] Other 07-16-2022 10:25-0400Body sorice389.64 cmSjorge Garcia Other [facility] [facility] Other 07-16-2022 10:25-0400Body cpsrwtodcax30.9 [degF] Leti Garcia Other [employer] Other 07-16-2022 10:25-0400Respiratory rate18 /minSjorge Garcia Other [facility] Other 07-16-2022 10:25-7787QaJ5% (BldA) [Mass fraction]93 % Leti Garcia Other [facility] Other Encounters Encounter DateEncounter TypeCare ProviderFacilityStart: 01-54-7909vpkcmawatqjoi CooperFacility:[facility]: 02-22-2025 Registered [facility] Work Phone: Start: 02-22-2025 End: 32-48-4133bqlgitocytVbcynb E Ross MD Work Phone: [facility] Work Phone: Start: 02-22-2025 End: 81-40-5685Tttfqsi encounter procedureBecky Crouch APRN-[facility] Ambulatory Work Phone: Start: 54-86-4251gbckdzkmwnRCFSJBarnesville Hospitaltart: 02-06-2025 End: 76-30-8619pohoferkzoLOPR [facility] Administrationtart: 01-18-2025 End: 63-77-2758Furxrn outpatient visit 15 minutesFredric H Itzkowitz DO Work Phone: [facility] AssociatesComment on above:Esophageal dysphagia (Primary Dx)Start: 01-18-2025 End: 96-41-5308rhvfqeflvvBFEXMEZ H ITZKOWITZNot AvailableStart: 01-08-2025 End: 81-02-3092Zcshmf outpatient visit 15 minutesFredric H Itzkowitz DO Work Phone: [facility] AssociatesComment on above:Esophageal dysphagia (Primary Dx); Carcinoma of oropharynx (HCC)Start: 01-08-2025 End: 83-98-0117lfuaderuedUQHTNSV Jane Alfonso AvailableStart: 12-26-2024 Registered [facility] Work Phone: Start: 12-26-2024 End: 63-51-9960fxoyyywlgiWccqll E Ross MD Work Phone: 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 RossFacility:[facility]vueStart: 11-23-2024 Registered Su[facility] Work Phone: Start: 11-23-2024 End: 87-90-5118vbvuznqorkIzqyfm E Ross MD Work Phone: [facility] Work Phone: Start: 11-23-2024 End: 41-57-6774Rawsluy encounter procedurerick Faustin MD-[facility] Work Phone: Start: 11-23-2024 End: 36-24-7665Oawhzsd encounter procedureDebora Campbell [facility] CareStart: 11-23-2024 End: 88-79-6467psdfrysobyGzkobp E Ross MD Work Phone: [facility] Work Phone: Start: 52-03-7781Itw-patient / Non-visitDebora Campbell [facility] Work Phone: Start: 11-21-2024 End: 10-25-7930eywicsslxeNkqbiw E. RossFacility:[facility]vueStart: 2024 End: 49-37-0115uxjuxjohikHUDarius Patecility:[facility] [place]vueStart: 10-12-2024 End: 40-07-7103gvvfyreawwXOHumza Patecility:[facility] [place]vueStart: 10-11-2024 End: 05-39-0373Srovvd follow up visit related to original pxFredric H Itzkowitz DO Work Phone: [facility] GENSComment on above:Esophageal dysphagia (Primary Dx); Carcinoma of oropharynx (CMS/HCC)Start: 10-11-2024 End: 56-84-0073vsczunrqahJMFCVBH H ITZKOWITZNot AvailableStart: 10-03-2024 End: 59-43-1930Rkfpbsnl Result EncounterFredric H Itzkowitz DO Work Phone: [facility] UnsolicitedStart: 10-03-2024 End: 58-30-8850Vssiobpm Result EncounterFredric H Itzkowitz DO Work Phone: [facility] UnsolicitedStart: 10-03-2024 End: 52-72-2088Zfpskpmlu to same day surgery centerFredric Itzkowitz DO-[facility]Start: 10-03-2024 End: 55-02-6654vcvprikqljRlruaqk ItzkowitzFacility:[facility] Easttart: 09-28-2024 End: 90-34-4743qnywpxyjkcQB Demetrius CooperFacility:FT tart: 09-28-2024 End: 65-59-2012Bljnpd flowsheetAngela Lowe PA Work Phone: aNA BELLEVUEStart: 09-28-2024 End: 19-43-6450Hagwpy flowsheetAngela Lowe PA Work Phone: aNA BELLEVUEStart: 09-28-2024 End: 00-75-0967Vgxyvl outpatient visit 15 minutesAngela Lowe PA Work Phone: ana BELLEVUEComment on above:Vertigo (Primary Dx); Lumbar radiculopathy; Chronic bilateral low back pain, unspecified whether sciatica present; Degenerative disc disease, cervical; Migraine without aura and without status migrainosus, not intractable (CMS/HCC); PolyneuropathyStart: 09-28-2024 End: 28-58-6786dvikczamyeYABWSC LOWENot AvailableStart: 09-27-2024 End: 72-06-5616Uroqaa outpatient new 45 minutesFredric H Itzkowitz DO Work Phone: noms ST GENSComment on above:Esophageal dysphagia (Primary Dx)Start: 09-27-2024 End: 06-89-2718acnkaremgjABJXGLV H ITZKOWITZNot AvailableStart: 09-26-2024 End: 21-54-5407esuwcutewoVwbyan E Ross MD Work Phone: [facility] Work Phone: Start: 09-26-2024 End: 56-83-0144Nzosqhl encounter procedureSleno Cooper MD Work Phone: [facility] Work Phone: Start: 78-12-7161Jvqmgqsapb Philly Cooper MD Work Phone: [facility]-Can[facility] Acute Work Phone: Start: 09-20-2024 End: 79-44-7023Rqwadssgk department patient visitSleno Cooper MD Work Phone: [facility]-Emergency Room Work Phone: Start: 09-14-2024 End: 42-57-6282hdzimselgnOM Demetrius CooperFacility:FT FM BellevueStart: 09-11-2024 End: 47-78-7039Arbhsm outpatient visit 15 minutesMaroxy Schneider MD Work Phone: [facility] HospitalComment on above: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); Dysphagia, unspecified typeStart: 09-11-2024 End: 12-13-1611nztjwtsyzcYVQSFOA N [facility]art: 09-11-2024 End: 28-36-7349Ahmvvkc encounter procedureSleno Cooper MD Work Phone: [facility] Sleep Lab Work Phone: Start: 40-41-2449Swwwzsfpwp RecurringDemetrius Cooper MD Work Phone: [facility] Work Phone: Start: 09-07-2024 End: 35-51-4877Jtmqhrr encounter procedureSleno Cooper MD Work Phone: [facility] Work Phone: Start: 09-04-2024 End: 25-57-3677pzunhwhptmAWUW [facility] Administrationtart: 08-30-2024 End: 63-55-5876Jwg Drop offSleno Cooper [facility] Start: 08-30-2024 End: 87-23-5619ynlcoitwqsDftfgy E. RossFacility:FTMCStart: 08-24-2024 End: 35-07-0071ezdmmdmqwlVpskjw E. RossFacility:FT FM BellevueStart: 08-23-2024 End: 62-65-5828Bglotun encounter procedureSleno Cooper MD Work Phone: [facility] Work Phone: Start: 08-22-2024 End: 10-48-4291ltyiogdyafDvwouv E. RossFacility:CD:[id number]: 08-21-2024 Non-patient / Non-visitSleno Cooper MD Work Phone: [facility] Work Phone: Start: 01-37-3265Cpr-patient / Non-visitSleno Cooper MD Work Phone: [facility] Infect Dis Work Phone: Start: 23-47-4468xkbkcjoakaKjmmsmytm M Estill [facility]: 08-20-2024 End: 14-77-5082Lpwqablxwt and management of inpatientSleno Cooper MD Work Phone: [facility] [place] Med Surg Work Phone: Start: 00-51-3578Gmiifudtrh RecurringDemetrius Cooper MD Work Phone: [facility] Work Phone: Start: 29-68-3837Sfl-patient / Non-visitSleno Cooper MD Work Phone: [facility] Work Phone: Start: 91-48-4242mvaknfnvmdVxphwvtq R Poynter [facility]tart: 37-55-1525Gfcispumlw Recurring Demetrius Cooper MD Work Phone: [facility]-Speech Therapy Cancer CenterStart: 77-14-9108Kqy-patient / Non-visitSleno Cooper MD Work Phone: [facility] Palliative Work Phone: Start: 71-15-6117Icdyqahvjn Philly Cooper MD Work Phone: [facility] [place] [facility] Work Phone: Start: 08-16-2024 End: 96-48-7897Gssczmo encounter procedureSleno Cooper MD Work Phone: [facility] CareStart: 08-16-2024 End: 05-96-0990wgxxffjkasTjhnnm E Ross MD Work Phone: [facility] Work Phone: Start: 86-07-1019Tsu-patient / Non-visitSleno Cooper MD Work Phone: [facility] Physician [facility]-Heart Rhythm ClinicStart: 75-81-0041Jtm-patient / Non-visitSleno Cooper MD Work Phone: [facility] Work Phone: Start: 98-15-0251Gndioqfrar Philly Cooper MD Work Phone: [facility]-Speech Therapy Cancer CenterStart: 08-09-2024 End: 81-80-7351Zbggpbs encounter procedureSleno Cooper MD Work Phone: [facility] Work Phone: Start: 56-01-2795Nqf-patient / Non-visitSleno Cooper MD Work Phone: [facility] Physician [facility] Palliative Work Phone: Start: 08-09-2024 End: 49-37-3629Wrgthbf encounter procedureSleno Cooper MD Work Phone: [facility] CareStart: 08-09-2024 End: 33-33-7297bzwwhdironNrgxgt E Ross MD Work Phone: [facility] Work Phone: Start: 38-20-3787Lzw-patient / Non-visitSleno Cooper MD Work Phone: [phone] [place] [facility] Work Phone: Start: 46-21-1464Nkyskkatwo Philly Cooper MD Work Phone: [phone] CenterSpe[facility] Therapy Cancer CenterStart: 38-11-5543Doe-patient / Non-visitSleno Cooper MD Work Phone: [facility] Work Phone: Start: 04-08-8801Cye-patient / Non-visitSleno Cooper MD Work Phone: [phone] HospitalHeart Rhythm ClinicStart: 08-02-2024 End: 93-43-6144Fugvnbp encounter procedureSleno Cooper MD Work Phone: [phone] CareStart: 08-02-2024 End: 91-94-2312jiznyioffvHpjhzo E Ross MD Work Phone: [phone] Work Phone: Start: 19-27-1981Ftx-patient / Non-visitSleno Cooper MD Work Phone: [phone] Work Phone: Start: 21-86-0135Wtmasjfyku Philly Cooper MD Work Phone: [phone] CenterSpeech Therapy Cancer CenterStart: 46-91-2617Snv-patient / Non-visitSleno Cooper MD Work Phone: [facility] Work Phone: Start: 07-26-2024 End: 41-43-5296bnrxievrfhHRWQAG VARGAS VNot AvailableStart: 09-15-8945Alnplisnft Philly Cooper MD Work Phone: [facility] [place] [facility] Work Phone: Start: 34-09-1958Osn-patient / Non-visitSleno Cooper MD Work Phone: [facility] Palliative Work Phone: Start: 07-26-2024 End: 47-84-7935Wxzmsphg ReferredDemetrius Cooper MD Work Phone: [facility] Palliat CareStart: 07-26-2024 End: 18-59-9221ojqeafiswfBrcdmw E Ross MD Work Phone: [facility] Work Phone: Start: 07-26-2024 End: 05-95-6254Xtljpcf encounter procedureSleno Cooper MD Work Phone: [facility] Work Phone: Start: 72-00-2188Lnu-patient / Non-visitSleno Cooper MD Work Phone: [facility]-Heart Rhythm ClinicStart: 11-15-2744Ltr-patient / Non-visitSleno Cooper MD Work Phone: [facility] Work Phone: Start: 50-80-2905kvoievoipkMqfqoub Stevens Facility:[facility]tart: 27-05-0480Zivaxbinbb Recurring Demetrius Cooper MD Work Phone: [facility]-Speech Therapy Cancer CenterStart: 63-75-7262Qia-patient / Non-visitSleno Cooper MD Work Phone: [facility] Ambulatory Work Phone: Start: 07-20-2024 End: 32-28-3158Xuemqeb encounter procedureSleno Cooper MD Work Phone: [facility] Ambulatory Work Phone: Start: 07-19-2024 End: 02-47-6699tjsqauykjsKENRRTB [facility] Glenbeightart: 73-21-5441Ykc-patient / Non-visitSleno Cooper MD Work Phone: [facility]-Heart Rhythm ClinicStart: 07-19-2024 End: 78-09-7935Qewqhmtk ReferredDemetrius Cooper MD Work Phone: [facility] CareStart: 07-19-2024 End: 81-56-8598Drnyhnv encounter procedureSleno Cooper MD Work Phone: [facility] CompanyStart: 07-19-2024 End: 83-29-6414jhbfvdjznkUgeugntpl M McGraOlean General Hospitalcility:[facility] Easttart: 07-17-2024 End: 27-64-9707Lsantraq Result EncounterMatteo Melo MD Work Phone: noms External Department UnsolicitedStart: 07-17-2024 End: 80-45-9133Hqvfecuf Result EncounterMatteo Bell MD Work Phone: noms External Department UnsolicitedStart: 07-17-2024 Registered Philly Cooper MD Work Phone: [facility] [place] [facility] Work Phone: Start: 07-17-2024 End: 56-98-3292Hcjrynkyh to same day surgery centerSleno Cooper MD Work Phone: [facility] Main CampusStart: 07-17-2024 End: 76-24-6876gtmdcymmvnLvtuwy E Ross MD Work Phone: [facility] Work Phone: Start: 67-09-6674Ppr-patient / Non-visitSleno Cooper MD Work Phone: [facility] Ambulatory Work Phone: Start: 94-30-3645Ary-patient / Non-visitSleno Cooper MD Work Phone: [facility] Ambulatory Work Phone: Start: 32-59-4497Hgx-patient / Non-visitSleno Cooper MD Work Phone: [facility] HospitalHeart Rhythm ClinicStart: 93-24-9905Nwjaaeojck Philly Cooper MD Work Phone: [facility] Acute Work Phone: Start: 67-11-0100Omq-patient / Non-visitSleno Cooper MD Work Phone: [facility] Phys[facility] Palliative Work Phone: Start: 07-12-2024 End: 77-81-1519Hpmunso encounter procedureSammarek Cooper MD Work Phone: [facility] Work Phone: Start: 07-12-2024 End: 92-18-7095gokzuxwxidQqwwsp E Ross MD Work Phone: [facility] Work Phone: Start: 33-76-0338Nso-patient / Non-visitSleno Cooper MD Work Phone: [facility] Work Phone: Start: 07-10-2024 End: 86-89-3517sjgiqenretOXAG [facility] Administrationtart: 59-18-0667Rej-patient / Non-visitSleno Cooper MD Work Phone: [facility] Work Phone: Start: 91-89-4058Taj-patient / Non-visitSleno Cooper MD Work Phone: [facility] HospitalHeart Rhythm ClinicStart: 87-77-3878Sno-patient / Non-visitSleno Cooper MD Work Phone: [facility] Palliative Work Phone: Start: 07-06-2024 End: 30-09-7886Ogustgxs Magali Cooper MD Work Phone: [facility] Palliat CareStart: 07-06-2024 End: 53-84-4158Hxwpiox encounter procedureSleno Cooper MD Work Phone: [facility] PalliativeStart: 07-06-2024 End: 56-16-4251abaywqkrclGysliy E Ross MD Work Phone: [facility] Work Phone: Start: 43-42-2280Hpw-patient / Non-visitSleno Cooper MD Work Phone: [facility] Work Phone: Start: 07-04-2024 End: 60-19-5601yfitkrmqssVwbslr E. RossFacility:FT FM BellevueStart: 07-03-2024 End: 61-87-3038Zkt Drop offMhd Ramin Faustin [facility] Start: 07-03-2024 End: 36-49-9134Nqvkromi Magali Cooper MD Work Phone: [facility] RehabilitationStart: 07-03-2024 End: 41-69-3993Ztb Drop offSleno Cooper [facility] Start: 07-03-2024 End: 10-25-6572mqsfwkrgslQymrbu E. RossFacility:FTMCStart: 06-23-2024 End: 80-03-0474Dozzsrh encounter procedureIsabel Romano AUD Work Phone: NOKV AUDComment on above:Sensorineural hearing loss, bilateral (Primary Dx); Tinnitus, bilateralStart: 06-23-2024 End: 39-15-5760fydgtslufbKUBFANX Polina ROMANONot AvailableStart: 06-23-2024 End: 60-74-5314Lqcias flowsJudith Romano AUD Work Phone: noms AUDStart: 06-23-2024 End: 42-72-8910Fgnpfj flowsJudith Romano AUD Work Phone: noms AUDStart: 06-22-2024 End: 45-44-0549Kuthwoe encounter procedureSleno Cooper MD Work Phone: [facility] Gwf-Jjj-Ixarkdpf Testing Work Phone: Start: 06-22-2024 End: 09-50-0920vebtzpuzmyXfzywl E Ross MD Work Phone: [facility] Work Phone: Start: 35-39-1766Swjwtxznx for preprocedural laboratory examinationMatteo Woody [facility] Physician GroupStart: 06-22-2024 End: 71-43-8175Ttbpacww Result EncounterMatteo Melo MD Work Phone: noms External Department UnsolicitedStart: 06-22-2024 End: 00-29-9502Vhmekgce Result EncounterMatteo Bell MD Work Phone: noms External Department UnsolicitedStart: 06-20-2024 End: 99-39-6192Doiyfn outpatient new 45 minutesMatteo Melo MD Work Phone: noms ST GENSComment on above:Poor intravenous access (Primary Dx); Carcinoma of oropharynx (CMS/HCC)Start: 06-20-2024 End: 21-60-6200lnjkbqiyvdTXEAOY VARGAS VNot AvailableStart: 67-85-2174Kev- patient / Non-visitSleno Cooper MD Work Phone: [facility] Ambulatory Work Phone: Start: 68-99-9064Frwxxwivsz Philly Cooper MD Work Phone: [facility] Acute Work Phone: Start: 06-14-2024 End: 53-98-7768wfpcbefxllUgzkwc E Ross MD Work Phone: [facility] Work Phone: Start: 06-14-2024 End: 39-95-5164Kcknhej encounter procedureSleno Cooper MD Work Phone: [facility] Work Phone: Start: 17-49-9845Nrbvoslsre Philly Cooper MD Work Phone: [facility] Acute Work Phone: Start: 06-14-2024 End: 50-88-7092wasrdhazrhGiianr E Ross MD Work Phone: [facility] Work Phone: Start: 06-14-2024 End: 35-34-8115Trytcvx encounter procedureSleno Cooper MD Work Phone: [facility] Work Phone: Start: 06-06-2024 End: 28-87-5163qdauuurhasWHQLWilson Healthtart: 06-05-2024 End: 44-35-9658Qqqqgtodwl hospital [facility] by [facility] [address] [place], [place] [address]Comment on above:Enlarged submental lymph nodeStart: 06-05-2024 End: 07-17-7543bfeytpohpyKLZNNGQ N STEVENSUniversity Hospitals Cleveland Medical Centertart: 05-30-2024 End: 74-06-6875Yapnst follow up visit related to original Mckenzie Schneider MD Work Phone: [facility] CenterComment on above: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); Metastasis to cervical lymph nodeStart: 05-30-2024 End: 51-55-7887nycvggxzbiTJYRUGC N [facility]ontart: 05-15-2024 End: 66-76-5219Elixtbrofb hospital visit by physicianRad External FilmEF RAD EXTERNAL FILM VIRTUALComment on above:ArrivedStart: 05-15-2024 End: 03-06-5345pwiuondezhGYEBOQU N [facility]ontart: 05-11-2024 End: 99-92-4440Otaqvfdciu hospital visit by Yajaira Schneider MD Work Phone: [facility] ORComment on above: 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 RossFacility:FTMCStart: 04-11-2024 End: 06-85-7882ibuokyegrvNILEOKQ N [facility]art: 04-11-2024 End: 63-91-7942Mwaednpei for other preprocedural examinationMAROXY [facility] Hospitaltart: 04-11-2024 End: 08-31-2380Ekshoyiox for preprocedural cardiovascular examinationMAROXY Tripp [facility]art: 04-11-2024 End: 72-00-5847Pswymizix for preprocedural respiratory examinationMAROXY Tripp [facility]art: 04-07-2024 End: 65-47-2525Lbohcc outpatient new 45 minutesMary Schneider MD Work Phone: [facility] CenterComment on above: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); Oral lesion; Malignant neoplasm of floor of mouthStart: 04-07-2024 End: 11-65-4471dkmwbfhhsjGSERAEB N STEVSumma Health Wadsworth - Rittman Medical Centertart: 03-29-2024 End: 02-46-3052Fgywoh Kilo Ham MD Work Phone: noms CI ENTStart: 03-29-2024 End: 11-00-1016Bxlxme Kilo Ham MD Work Phone: noms CI ENTStart: 03-29-2024 End: 16-16-7198Kidhek outpatient visit 15 minutesLuc Ham MD Work Phone: noms CI ENTComment on above: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) (Primary Dx); Ulcer of gingivaStart: 03-29-2024 End: 75-36-9612wcgdvjrynpESDYSR H TIMMISNot AvailableStart: 03-27-2024 End: 02-24-9416fscvvvpcdfPYGMHU HOUGHTON TIMMISFacility:[facility] Hospitaltart: 03-27-2024 End: 69-60-1959Aiumxtponb hospital visit by physicianArrival Time Radiology Work Phone: Radiology Pet CTStart: 03-23-2024 End: 48-75-3933kegcakpqfwFfmkkywq Talal SarminiFacility:[facility] DHStart: 03-23-2024 End: 97-80-4029Fkcjfzw encounter procedureMuhammad Talal Sarmini [phone]-AyncxMercy Health [facility] Hospital Digestive Health Start: 03-08-2024 End: 38-76-2756Vvgqth Kilo Ham MD Work Phone: noms CI ENTStart: 03-08-2024 End: 89-75-0151Pcuaop flowsheetLuc Ham MD Work Phone: noms CI ENTStart: 03-08-2024 End: 78-10-7262Qhdemm outpatient visit 40 minutesLuc Ham MD Work Phone: noms CI ENTComment on above:Oral ulcer (Primary Dx); 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)Start: 03-08-2024 End: 28-71-1812kzaqjlieurCQPQVV H TIMMISNot AvailableStart: 03-06-2024 End: 41-48-4677Oeftmxqmd encounterLuc Ham MD Work Phone: noms ENT NORWALKStart: 02-29-2024 End: 62-86-2445lhsvutyvbqUT Samuel E Ross Work Phone: [facility] Work Phone: Start: 02-29-2024 End: 37-17-5154Ohbfixdh ReferredMD Demetrius Cooper Work Phone: [facility]-LAB Path Spec Fidelity HospStart: 02-16-2024 End: 87-27-0220Gdztgu outpatient visit 25 minutesHithiago Ham MD Work Phone: noms CI ENTComment on above:LAD (lymphadenopathy) of right cervical region (Primary Dx)Start: 02-16-2024 End: 04-73-7084yrbqsboajmFUKPEQ H TIMMISNot AvailableStart: 02-16-2024 End: 56-63-5899Xsdwdg flowsheetAngela Lowe PA Work Phone: noms [address]TEStart: 02-16-2024 End: 20-88-6267Pqtfhx flowsheetAngela Lowe PA Work Phone: noms [address]TEStart: 02-16-2024 End: 30-00-2337Yjcgat outpatient visit 15 minutesAngeserena PEMBERTON Work Phone: noms [address] R[address]TEComment on above:Migraine without aura and without status migrainosus, not intractable (CMS/HCC) (Primary Dx); Vertigo; Lumbar radiculopathy; Neck pain; Degenerative disc disease, cervical; PolyneuropathyStart: 02-16-2024 End: 40-97-0749htronkgpqxOMHAGE LOWENot AvailableStart: 02-14-2024 End: 79-40-2538vfairipwnjFRAUHX H TIMMISNot AvailableStart: 02-02-2024 End: 59-92-8670Vpzwxnyef encounterToms Pino CASON Work Phone: General SurgeryComment on above:MRI Appointment; Surgical Technician - OtherStart: 02-01-2024 End: 95-43-7268Kwlvbu mattieheetLuc Ham MD Work Phone: noms CI ENTStart: 02-01-2024 End: 63-86-0741Mmgbfs flowsHilario Ham MD Work Phone: noms CI ENTStart: 02-01-2024 End: 48-12-5897Znsvdi outpatient new 30 minutesLuc Ham MD Work Phone: noms CI ENTComment on above:Parotid mass (Primary Dx) Start: 02-01-2024 End: 15-86-2787VqpueeVzvh Augustin MD Work Phone: General SurgeryStart: 01-10-2024 End: 90-91-5296xingdhsxovMjrsit E. RossFacility:FT FM BellevueStart: 11-09-2023 End: 87-71-0343Rpcbemq encounter procedureMuella Talal Lilymini [facility] Start: 10-21-2023 End: 55-25-4051Hyizibd encounter procedureMuhambrandod Talal Sarmini [phone]-KkbgbMercy Health Allen Hospital Digestive Health Start: 09-17-2023 End: 16-79-8470Drtqgdu encounter procedureAnjali Ruby [phone]-TtuplMercy Health Allen Hospital Digestive Health Start: 09-02-2023 End: 27-16-1284gyuhfbjrfgSkzecuxex [facility] Work Phone: Start: 09-02-2023 End: 28-53-3915Clefczz encounter procedureGr[facility] Work Phone: Start: 07-27-2023 End: 02-40-0237Wghtoua encounter procedureGranville Medical Center [facility] Work Phone: Start: 49-47-9430Rphqbt outpatient visit 25 minutes [facility] OutPtStart: 05-31-2023 End: 56-87-5415ydwnmajeylDL Demetrius Cooper Work Phone: [facility] Work Phone: Start: 05-31-2023 End: 53-15-1063Ctsimtt encounter Tomy Demetrius Allison Work Phone: [facility]-Sleep Lab Work Phone: Start: 05-25-2023 End: 96-68-6541Fjigzit encounter Mati Ruby [phone]-EclhgMercy Health Allen Hospital Digestive Health Start: 99-12-1626Lolnmhqyf encounterToms Pino CASON Work Phone: General SurgeryComment on above:Received Outside Medical RecordsStart: 04-01-2023 End: 13-48-3326odwsporeplONEB AUGUSTINFacility:[facility] Hospitaltart: 04-01-2023 End: 22-72-1187Febvbue encounter procedureVaishali Pringle MD Work Phone: General SurgeryComment on above:IPMN (intraductal papillary mucinous neoplasm) (Primary Dx)Start: 03-10-2023 End: 07-51-1523Vickcsf encounter procedureBelina Lyssa Ruby [facility] Start: 03-10-2023 End: 35-74-7066Cwjjrkn encounter procedureBelina Lyssa Ruby [phone]-VkryiMercy Health Allen Hospital Digestive Health Start: 02-25-2023 End: 33-13-3813Kedrcqz encounter procedureBelina Lyssa Flori [phone]-IoejgMercy Health Allen Hospital Digestive Health Start: 02-16-2023 End: 17-69-6139rfbwgikuibHP Samuel E Ross Work Phone: [facility] Work Phone: Start: 02-16-2023 End: 76-54-3996Kpccwnv encounter procedureMD Demetrius Cooper Work Phone: [facility]-MRI Main [place] Work Phone: Start: 29-51-8808Nqzjsu outpatient visit 25 minutes [facility] SouthStart: 01-29-2023 End: 45-78-2123wbumocfymfSI Samuel E Ross Work Phone: [facility] Work Phone: Start: 01-29-2023 End: 38-92-4453Hziafrb encounter procedureMD Demetrius Cooper Work Phone: [facility]-Sleep Lab Work Phone: Start: 33-64-9777qlemupdlcqIwafijdv:9090Start: 01-27-2023 End: 19-64-5792hrfdbgjzpdZG Samuel E Ross Work Phone: [facility] Work Phone: Start: 01-27-2023 End: 50-59-6154Yrjlqrr encounter procedureMD Demetrius Cooper Work Phone: [facility]-Pacemaker CheckStart: 01-12-2023 End: 46-28-8058Qrhtsvz encounter procedureBelina [facility] [phone]-XydvqMercy Health Allen Hospital [facility]ive [facility] Start: 12-17-2022 End: 95-91-0346Hgnxhgd encounter procedureBelina [facility] Start: 12-09-2022 End: 17-88-7219judoskpfqnOB Demetrius Cooper Work Phone: [facility] Work Phone: Start: 12-09-2022 End: 87-76-8883Axljytb encounter procedureMD Demetrius Cooper Work Phone: [facility]-Sleep Lab Work Phone: Start: 11-23-2022 End: 36-95-8741Pkj Drop offSleno Cooper [facility] Start: 86-22-7718Margcn outpatient visit 15 minutes [facility]isele [facility] Ctr SouthStart: 10-13-2022 End: 69-62-4011dvkeyhydqjLI Mg [place] Work Phone: [facility] Work Phone: Start: 10-13-2022 End: 44-33-0418Rmnxsev encounter procedureMD Mg [place] Work Phone: [facility]-Sleep Lab Work Phone: Start: 09-29-2022 End: 52-79-5516cdzpqsnmwqDU EDY G REINECKFacility:B5Tejdz: 09-24-2022 End: 81-93-1664rkdzaoznthLJ MG JOHNSRFacility:R9Axpzh: 09-22-2022 End: 05-87-9200Ujaqjewqa department patient visitGordy Sánchez [facility] Start: 81-67-7313Tggmsh outpatient visit 15 minutes Griselda [facility] ClydeStart: 09-22-2022 End: 23-04-2989tkaklbkpjcUBMVLANEPWWZ LAKSHMIPATHY .[facility] Last[employer] Other Start: 08-25-2022 End: 37-44-4265owslomzktzRUAKJVKNQLJA LAKSHMIPATHY .Facility:X3Nwnqu: 08-12-2022 ambulatoryFacility:9090Start: 08-12-2022 End: 83-28-0793ljsrlqlhugQL Marc Naderer Work Phone: [facility] Work Phone: Start: 08-12-2022 End: 36-49-1563Vzjkelv encounter procedureMD Mg [place] Work Phone: [facility]-MRI Main [place] Work Phone: Start: 08-11-2022 End: 38-93-0862bdcpsjexgsCXSQVRBVXISC LAKSHMIPATHY .Facility:I8Bxudt: 07-29-2022 Office outpatient new 60 minutesDavid [facility] Start: 07-29-2022 End: 43-01-2985yaigysmplmYG Marc Naderer Work Phone: [facility] Work Phone: Start: 07-29-2022 End: 35-03-6193Okgefij encounter procedureMD Mg [place] Work Phone: [facility]-Sleep Lab Work Phone: Start: 07-23-2022 End: 01-30-8807rkwgnppgmhGQVH LAZO .Facility:H5Lpkzs: 07-22-2022 End: 04-21-6777dkatcrcyfzIOOLE D HIGHLANDERFacility:K0Ycyux: 07-21-2022 ambulatoryFacility:9090Start: 07-21-2022 End: 74-02-7357yvpzqbhbtrAO Mg [place] Work Phone: [facility] Work Phone: Start: 07-21-2022 End: 79-76-4174Smwgmyp encounter procedureMD Mg [place] Work Phone: [facility]-Pacemaker CheckStart: 06-18-2022 End: 83-94-8690tjuugbrotlKTOJQKNY CULLENFacility:P1Tgwyw: 06-16-2022 End: 11-56-9673uqjcgngeetPGPFFIPS CULLENFacility:Z0Blxzv: 06-11-2022 End: 37-30-2292vovpfnviniVIVZP D HIGHLANDERFacility:O9Ifqcb: 05-26-2022 End: 37-55-7549Qczzaxd encounter procedureParadha GALICIA [facility] Start: 04-16-2022 End: 23-60-5512idpvirypoyWO ERWIN Bell WESTFacility:U7Zodfw: 64-99-5755mdrzmwoumjSD AMANDA CLANCY .Facility:Q6Mkcit: 03-12-2022 End: 40-88-4345ffuppxjtieAQVCN D HIGHLANDERFacility:I4Xohft: 03-10-2022 End: 03-57-0103urilofmilqNUCSCSRQ PERRYFacility:C1Treus: 03-06-2022 End: 93-26-5536klcldmuzcdMQ DOCTOR MISCFacility:M5Tqmvn: 12-25-2021 End: 17-51-0631xueybaxmaqQLLA CLIFTON .Facility:X7Sjsyg: 12-01-2021 End: 22-72-2198awcurnsjaxBKSEY D HIGHLANDERFacility:M0Nrcow: 11-29-2021 End: 30-87-4127dewzhmeumdCjzowbkec [place] Other [facility] Other Start: 35-30-2226Lydmyq outpatient visit 15 minutes Leti GarciaFPG Urgent Care ClydeStart: 11-13-2021 End: 58-17-7855nnqsstfblnZSMN LACOURFacility:S5Dunwb: 09-04-2020 End: 99-24-3283Prntcxb encounter procedureParam Cosme Work Phone: -MRI Main CampusStart: 08-15-2020 End: 21-04-6441Cmfmgnm encounter procedureParam Cosme-Pacemaker CheckStart: 08-30-2019 End: 93-03-4806Dxnubec encounter procedureEHAB A ELTAHAWYFacility:[facility] Procedures DateProcedureProcedure DetailPerforming ClinicianStart: 90-03-9694Pshbipyx emission tomography with computed tomographyDemetrius Cooper MD Work Phone: Start: 76-06-4334Oijij gastrointestinal endoscopy for directed placement of percutaneous gastrostomy tubeSleno Cooper MD Work Phone: Start: 90-29-5685MURNPNS POCT GLUCOMETERSFredric H Vandana DO Work Phone: Start: 95-99-9010Zyzbkpfi tomography of abdomen and pelvis with contrastSleno Cooper MD Work Phone: Start: 31-47-1970Lkrjld-up visitFollow-upMADELYN N STEVENSStart: 93-47-1065AV of chest without contrastSleno Cooepr MD Work Phone: Start: 35-72-0424Dlark chest X-raySleno Cooper MD Work Phone: Start: 06-93-4794Btebxmdr identified in Blood by CultureSleno Cooper MD Work Phone: Start: 48-23-3110Wicnchysrun Panel (PCR)Demetrius Cooper MD Work Phone: Start: 12-62-1071Czatv chest X-raySleno Cooper MD Work Phone: Start: 15-07-9746Alhdafs venous cannula insertion Demetrius Cooper MD Work Phone: Start: 92-69-5185JC Infusaport Insertion/Removal (Not Applicable)Demetrius Cooper MD Work Phone: Start: 70-47-2888NYADOUE POCT GLUCOMETERSMatteo Melo MD Work Phone: Start: 38-24-3636DOJXQIBG FUNCTION TESTSIsabel PALUMBO Work Phone: start: 17-78-3866Tkqrm metabolic panel calcium total Matteo Melo MD Work Phone: Start: 86-74-6165Gvjhozxv blood count with white cell differential, automatedMatteo Melo MD Work Phone: Start: 64-39-5093Gj guidance needle placement img s&i Mary Schneider MD Work Phone: Start: 06-58-3070Dsokq Interpretation of outside study Mary Schneider MD Work Phone: Start: 60-41-6667Mugekmd quantitative blood xcpt reagent stripMadeljuan Schneider MD Work Phone: Start: 71-02-3191RMFEX OXIMETRY, CONTINUOUSMondavid Santana MD Work Phone: Start: 65-14-2814Kpbuzne quantitative blood xcpt reagent stripMadeljuan Schneider MD Work Phone: Start: 23-56-5416XSUIN/VERIFY ABORHCjuliane Munoz MD Work Phone: Start: 89-08-1490Dybjh typing serologic rh (d)Gabo Munoz MD Work Phone: Start: 14-71-3841Nxig bld gluc mntr dev cleared fda spec home useCcf ProviderStart: 30-41-6713Oufqahaytox procedureAnjali Ruby Comment on above:done for painStart: 06-14-2023 ColonoscopyAnjali Ruby Start: 91-81-6945ZqnoxlvcmuwyxaijbalkjxpczfRqsy Steinmetz Start: 18-35-6117AC abdomen wo conMD Demetrius Cooper Work Phone: Start: 63-39-4108EJX of cervical spine without contrastMD Mg Guero Work Phone: Start: 47-22-9848FK pre/post mri xrayMD Mg [place] Work Phone: Start: 13-08-5270ASN of right ankleMD Mg [place] Work Phone: Start: 19-81-4365VKB screeningJEFFERSON HEALTH NORTHEASTComment on above:Performed By: #### CBC #### [facility] [address] [place] [address] Dr. Mustafa [facility] HospitalStart: 43-02-7194MvatbzwwmxchbaudydbatsfwlgJiofedi GALICIA Comment on above:2 diminunative ulcers, gastritis, gastric polyp, biopsyAngioplasty of blood vesselPanicholas county hospitalk GALICIA Cardiac pacemaker procedurePaPlunkett Memorial Hospital Cataract (disorder)Gordy Sánchez Comment on above:bilateralCholecystectomyPanicholas county hospitalk GALICIA ColonoscopyMurray-Calloway County Hospitalk GALICIA Hernia repairPatrick GALICIA ProstatectomyPanicholas county hospitalk GALICIA TonsillectomyAdvanced Care Hospital of [facility] VasectomyMurray-Calloway County HospitalPushSpring GALICIA Plan of Treatment DateCare ActivityDetailAuthorStart: 06-08-2025 End: 60-00-3986Jrdqqur encounter sugsxunix20/23/2026 1:30 PM EST Office Visit [facility] [address] 1st [place] [address] [place] [address] [place] [address] [facility] Centertart: 04-11-2025 Creatinine measurementCreatinine [facility]oleStart: 72-37-8789Dcoiyadjb measurementPotassium [facility] Start: 04-03-2025 End: 92-98-5150Uwgnqnu encounter vsfpviwwk77/18/2025 11:00 AM EST Office Visit [facility]AN[facility] [address] [place] [address] Missy Villarreal NP [address] [place] [address] LISANDRO BRYANTTAItart: 01-67-6476Wslyyviiv vaccinationInfluenza Vaccine (#1) [facility] HospitalStart: 47-74-6463Eqdzqcl referralSt. Anthony'S Hospital Work Phone: Start: 12-11-2024 End: 11-67-0952Gtasvub encounter moqvatvhs53/28/2025 10:00 AM EDT Office Visit [facility] [address]nd [place] [address] [place] [address] [place] [address] [facility]ertart: 10-11-2024 End: 91-56-5346Mtxawhq encounter qtaejcwky55/28/2025 2:15 PM EDT Office Visit [facility] [address] [address] Veena Ross DO [address] [facility] [address] [place] [address] NOMPolina HACKETTtart: 61-28-3896KzlebwctnRegency Hospital Cleveland Easttart: 09-28-2024 End: 69-82-8646Ulortjl encounter procedureHEALTHSOUTH REHABILITATION H[facility] ARIZ[facility] NICOLETTEComment on above:Arrived Start: 08-29-2024 End: 29-51-7813Alpzjwo encounter procedureNOSAMARITAN HOSPITAL ROUTEStart: 01-78-3793KavorzumaRegency Hospital Cleveland Easttart: 81-91-4729Nwyuqlkmzywnwi of prophylactic treatmentRegency Hospital Cleveland Easttart: 08-21-2024 [facility] Easttart: 32-95-6857QobsabqyrRegency Hospital Cleveland Easttart: 97-84-4063Qlxdoagp to infectious diseases physicianRegency Hospital Cleveland Easttart: 46-88-9252GbkpbbjfhRegency Hospital Cleveland Easttart: 70-16-4286AR Chest WO contrastRegency Hospital Cleveland Easttart: 08-20-2024 CT of chest without contrastCT chest wo [facility] Start: 61-19-6961Rkatirtd admissionRegency Hospital Cleveland Easttart: 74-54-3365QhbhceeplRegency Hospital Cleveland Easttart: 44-46-0949Zpiyvyyo identified in Blood by CultureBlood CultureRegency Hospital Cleveland Easttart: 66-36-4454YlwtwbantRegency Hospital Cleveland Easttart: 08-09-2024 End: 02-18-4953KbputiqomRegency Hospital Cleveland Easttart: 08-03-2024 End: 82-90-7540AdypqxrayRegency Hospital Cleveland Easttart: 21-01-4676HbztgadecRegency Hospital Cleveland Easttart: 22-92-3690XdbqlrpcbRegency Hospital Cleveland Easttart: 07-26-2024 End: 97-33-5413Lqtdxbb encounter yyhznroeb91/12/2025 10:15 AM EDT Office Visit [facility]N SANDOVAL [address] [address] Matteo Melo MD [address] [facility] [address] [place] [address] [facility] HOSPITALtart: 63-94-8401JixhqvoicPromedica Flower Hospital Start: 64-54-3819PcgdqqrntRegency Hospital Cleveland Easttart: 37-25-7469QdhiiqgswRegency Hospital Cleveland Easttart: 81-44-4617HfajfysrgRegency Hospital Cleveland Easttart: 07-11-2024 End: 15-73-1135Vxlulrn encounter pxyknyfed45/25/2025 1:15 PM EST Office Visit [facility] [address] [facility] [address] [place] [address] Matteo Melo MD [address] [facility] [address] [place] [address] [facility]OSPITALtart: 59-39-0238AourzqllhPromedica Flower Hospital Start: 77-85-0138Bqdxujm venous cannula insertionOR Infusaport Insertion/Removal (Not Applicable)[facility] Easttart: 22-66-4845XwuuqtpanRegency Hospital Cleveland Easttart: 06-23-2024 End: 05-54-5595Lhyzduq encounter procedureNOMS AUDComment on above:Arrived Start: 95-09-6104Ncmecxm referralSt. Anthony'S Hospital Work Phone: Start: 06-05-2024 End: 13-15-8435Zfgnroh encounter qcsulfcqy85/20/2025 1:00 PM EST Appointment [facility] [address] [place] [address] [facility] Hospitaltart: 05-30-2024 End: 71-02-9037Sxaumzmnsyvq consultation with qldfbjp9105/30/2024 11:45 AM EST Telemedicine [facility] [address] [place] [address] [place] [address] [place] [address] [facility] Centertart: 05-11-2024 End: 86-43-0397Axtkzpl incl fluor gdnce dx w/cell washg spx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 05/11/2024 7:17 AM ESTVirtual TATIANA Turner [place] Start: 05-11-2024 End: 01-91-9518Kgslvedzkcqpt flexible transoral diagnosticEsophagoscopy Malignant neoplasm of floor of mouth 05/11/2024 7:17 AM ESTVirtual TATIANA Ericksoner [place] Start: 05-11-2024 End: 71-54-3920Tegrnssuifs hemiglossectomyGLOSSECTOMY, ROBOT-ASSISTED, ORAL APPROACH Malignant neoplasm of floor of mouth 05/11/2024 7:17 AM ESTVirtual TATIANA Turner ORStart: 05-11-2024 End: 74-88-9720Edowolfdpxtx w/wo tracheoscopy dx except newbornDirect Laryngoscopy Malignant neoplasm of floor of mouth 05/11/2024 7:17 AM ESTVirtual [facility] [place] ORStart: 05-11-2024 End: 77-58-0405Vniwcypgbsind primary/secondary age 12/>Tonsillectomy Malignant neoplasm of floor of mouth 05/11/2024 7:17 AM ESTVirtual [facility] Johnny ORStart: 69-58-2060Yvwccbasxv hospital visit by jnkqeperx87/04/2024 Hospital Encounter [facility] [place] [address] [place] [address] [place] [address] [place] [address] [facility] Johnny ORStart: 04-07-2024 End: 13-57-4402Iuftiyd for Pre-Admission Testing VisitRequest for Pre-Admission Testing Visit Procedures Routine Oral lesion Malignant neoplasm of floor of mouth Expected: 04/07/2024 (Approximate), Expires: 04/07/2025[facility] Service Area Work Phone: Comment on above:Expected: 04/07/2024 (Approximate), Expires: 04/07/2025Start: 03-08-2024 End: 34-39-6421Kgtpupk encounter procedureNOMS CI ENTComment on above:Arrived Start: 02-16-2024 End: 08-91-0077Zfeeqrs encounter xvzcfygaw32/02/2024 2:30 PM EDT Office Visit [facility] [address] [place] [address] Luc Ham MD [address] [place] [address] [facility] CI ENTStart: 02-16-2024 End: 03-03-8700Gypcnxn encounter procedureNOMS [address] STATE ROUTEComment on above:ArrivedStart: 02-01-2024 End: 99-21-3176Laqjjij encounter zzojpjxji71/17/2024 1:10 PM EDT Office Visit [facility] [address] [place] [address] Luc Ham MD [address] [place] [address] ArrivedNOMS CI ENTComment on above:ArrivedStart: 44-58-6464Wrhig-19 Vaccine ()Covid-19 Vaccine ()[facility] Hospitaltart: 34-07-4673Lowfk-19 Vaccine () Covid-19 Vaccine ()[facility] Hospitaltart: 26-20-0553Pkcph-19 Vaccine ()Covid-19 Vaccine ()[facility] Hospitaltart: 50-36-7933Pkxdhslyn vaccinationInfluenza Vaccine (#1)[facility] Hospitaltart: 16-92-5184Tpyuidy Directive DiscussionAdvance Directive Discussion [facility] Hospitaltart: 44-84-0762Yiypx-19 Vaccine ()Covid-19 Vaccine ()[facility] Hospitaltart: 59-20-1544Zxjqcdrck vaccinationInfluenza Vaccine (#1)[facility] Hospitaltart: 74-96-0859pwtzxyfgel AmbulatoryFacility:L9Bzmne: 74-54-5926Bxwtssj Directive DiscussionAdvance Directive DiscussionOhioHealth Riverside Methodist Hospitaltart: 14-82-1091Dehetqqedz Assessment Depression AssessmentOhioHealth Riverside Methodist Hospitaltart: 12-30-7181ODN of right ankleMR ankle RT wo [facility] CtrStart: 94-93-6775DD pre/post mri xrayXR pre/post mri xrayBarnesville Hospital CtrStart: 24-65-9864Muxqgulenyvj Vaccine: 65+ (2 - PPSV23 or PCV20)Pneumococcal Vaccine: 65+ (2 - PPSV23 or PCV20)[facility] Hospitaltart: 50-78-9305Iwsdidiqjefs Vaccine: 65+ (2 of 2 - PPSV23 or PCV20)Pneumococcal Vaccine: 65+ (2 of 2 - PPSV23 or PCV20)[facility] Hospitaltart: 77-55-0926JIY High Risk: (Elderly (60+) or Population) (1 - 1-dose 75+ series)RSV High Risk: (Elderly (60+) or Population) (1 - 1-dose 75+ series)[facility] HospitalStthayer: 63-49-5295JFS Vaccine (1 - 1-dose 75+ series)RSV Vaccine (1 - 1-dose 75+ series)[facility] Hospitaltart: 40-29-6076WGC Vaccine (1 - 1-dose 60+ series)RSV Vaccine (1 - 1-dose 60+ series) [facility] Hospitaltart: 75-79-9443Uhtysnvx Vaccine (1 of 2)Shingrix Vaccine (1 of 2)[facility] Hospitaltart: 32-26-8046Mvcwztum ScreeningDiabetes ScreeningOhioHealth Riverside Methodist Hospitaltart: 15-47-6932ANgX/Tdap/Td Vaccines (1 - Tdap)DTaP/Tdap/Td Vaccines (1 - Tdap)[facility] HospitalStthayer: 80-74-3843Kwowg microalbumin profileDTaP,Tdap,Td Vaccine (1 - Tdap)[facility] Hospitaltart: 57-35-4317Shigq screening for proteinDiabetes: Urine Protein ScreeningUnOhioHealth Shelby HospitalStthayer: 69-22-5637Uzsclmz ScreeningAnxiety ScreeningWright-Pat[facility] Start: 72-78-6919Oatsbctkgd ScreeningDepression ScreeningOhioHealth Riverside Methodist Hospitaltart: 33-96-7503Vaxbnrne screeningDiabetes: Retinopathy ScreeningUnHighland District Hospital: 16-07-9242Dgyhdv wellness visitWelcome to Medicare Visit [facility]: 12-55-0219ZpeednuraeecfndxHysqrugdqqgcov [facility]: 68-29-0990Dpcwhkthwh A1c measurement Diabetes: Hemoglobin P6EIpxuygvyyuHighland District Hospital: 11-55-2148Zdmji panelLipid PanelUnHighland District Hospital: 06-15-1940Medicare Annual Wellness VisitMedicare Annual Wellness Visit (AWV)[facility]: 28-15-3252Zmiiu screening for proteinDiabetes: Urine Protein ScreeningDoctors Hospital End: 28-66-8458Ngfsnvo device check - InpatientUN[facility] Service Area Work Phone: Comment on above:Once for 1 Occurrences starting 05/11/2024 until 05/11/2024 End: 93-66-4696Eqxlbzr device check - SurgeryUnOhioHealth Shelby Hospital Work Phone: Comment on above:Once for 1 Occurrences starting 05/11/2024 until 05/11/2024omprehensive metabolic 1999 panel - Serum or Plasma [facility] HospitalComprehensive metabolic 1999 panel - Serum or PlasmaPromedica Flower HospitalComprehensive metabolic 1999 panel - Serum or PlasmaPromedica Flower HospitalComprehensive metabolic 1999 panel - Serum or [facility] Memorial HospitalComprehenve metabolic 1999 panel - Serum or [facility] HospitalCT with contrast for radiotherapy planningPromedica Flower HospitalCT with contrast for radiotherapy planningPromedica Flower Hospital End: 17-84-2432Rwsjuog [Mass/volume] in Serum or PlasmaPOCT Glucose Point of Care Testing - Docked Device Routine Once (Lab) for 1 Occurrences starting until 05/11/2024[facility] Service Area Work Phone: Comment on above:Once (Lab) for 1 Occurrences starting 05/11/2024 until 05/11/2024Laryngoscopy w/wo tracheoscopy dx except Direct Laryngoscopy Oral lesion Malignant neoplasm of floor of mouthVirtual [facility] [place] End: 99-58-4906AK Biliary ducts and Pancreatic duct WO and W contrast IVMRI PANC/TRISH WO/W IVCON Radiology Routine IPMN (intraductal papillary mucinous neoplasm) 1 Occurrences starting 02/01/2024 until [facility] Work Phone: Comment on above:1 Occurrences starting 02/01/2024 until 03/02/2025 End: 12-22-6248DE Unspecified body region 3D post processingMRI 3D POST PROCESSING Radiology Routine IPMN (intraductal papillary mucinous neoplasm) 1 Occurrences starting 02/01/2024 until 5CBellevue HospitalComment on above:1 Occurrences starting 02/01/2024 until 03/02/2025Patient Education [facility] Work Phone: Patient referralSt. Anthony'S Hospital Work Phone: Surgical pathology studySurgical Pathology Exam Pathology and Cytology Routine Oral lesion 04/07/2024 11:37 AM [facility] Work Phone: Surgical pathology [place] Service Area Work Phone: Comment on above:Release Upon Ordering for 1 Occurrences starting 05/11/2024, 1 completed End: 28-85-3219Zorhbycx pathology [facility] Area Work Phone: Comment on above:Once (Lab) for 1 Occurrences starting 06/05/2024 until 06/05/2024, 1 [facility] Immunizations Immunization DateImmunizationNotesCare WlcjtpliBqfzjjvi58-56-0850rcwsaobex, high dose seasonal, preservative-free; Translations: [Fluzone High Dose Vaccine] Demetrius Cooper [phone]-HkjprMercy Health Allen Hospital [facility] Fidelity 96-13-3139jdixkfzcl virus vaccine, unspecified formulationMary Schneider MD Work Phone: [facility] Work Phone: [phone] vaccine recombinantMuhammad Sarmini [phone]-CfwhcMercy Health Allen Hospital Digestive Swkfhf11-09-7393 pneumococcal 20-valent conjugate vaccineMuhammad Sarmini [phone]-MtuxbTrinity Health System East Campus07-08-2024 zoster vaccine recombinantMuhammad Sarmini [phone]-BotokTrinity Health System East Campus12-13-2023 COVID-19 (PFIZER) 11Y and Leda Cooper MD Work Phone: [facility]11-27-2023influenza virus vaccine, unspecified formulationAnjali Ruby [phone]-MrkdgTrinity Health System East Campus07-12-2022 Pfizer Haque Cap SARS-CoV-2 VaccinationLuc Ham MD Work Phone: [facility] SystemsUullovvahr56-37-8994VLYU-EaK-4 mRNA (xrwixrhsffz-iico-qygifze) vaccineSleno Cooper [phone]-KjkisParkwood Hospital07-12-2022 SARS-CoV-2, UnspecifiedAngeserena PEMBERTON Work Phone: NOUniversity HospitalHqawxexyop24-39-0177OVNJ-QcN-4 (COVID-19) mRNA BNT-162b2 vaxSleno Cooper [phone]-NbtwvParkwood HospitalComment on above: Result Comment: 2022-11-03: CRW1380-45-0463LFYM-JsH-8, UnspecifiedLuc Ham MD Work Phone: [facility] SystemsVausbqonur33-51-1762kzkijalbb virus vaccine, unspecified formulationSleno Cooper [phone]-XlysuParkwood Hospital10-05-2021 Influenza, injectable, Madin Mireya Canine Kidney, preservative free, quadrivalentLuc Ham MD Work Phone: [facility] SystemsKylqxgzzrk84-36-4059CVWO-FnK-1 (COVID-19) Ad26 vaccine, recombinantPaStrataGent Life Sciencesk [employer] GeneQueen of the Valley Medical CenterFebjnxvw05-34-9667SWUP-ZqE-3 (COVID-19) mRNA BNT-162b2 Baru ExchangexEnzySurge [facility]02-11-2021SARS-CoV-2, UnspecifiedLuc Ham MD Work Phone: [facility] SystemsRorhszbvvv56-19-6916BOGP-FbK-1 (COVID-19) Ad26 vaccine, recombinantEnzySurge GeneQueen of the Valley Medical CenterCehkiiys49-77-3408KCAP-QdF-2 (COVID-19) mRNA BNT-162b2 vaEverythingMe [facility]01-21-2021SARS-CoV-2, UnspecifiedLuc Ham MD Work Phone: [facility] SystemsNemzeenfet40-73-9909evlcnizis virus vaccine, unspecified formulationSleno Cooper [phone]-LfmrmParkwood Hospital09-30-2020 Influenza, injectable, Madin Angela Canine Kidney, preservative free, quadrivalentLuc Ham MD Work Phone: [facility] SystemsBmqyapkrqg45-13-0460yeoxfcrew, high dose seasonal, preservative-freeLuc Ham MD Work Phone: [facility] SystemsKpvhlxpqyr48-88-6145sectzdlle virus vaccine, unspecified formulationLuc Ham MD Work Phone: [place] [address]Bmezofpzmi32-93-0542ptsujqsys, injectable, quadrivalent, contains preservativeLuc Ham MD Work Phone: [facility] SystemsHcoxehjhfh00-29-1326klchhmcxy, unspecified formulationSleno Cooper 148-4878Yzhdor-TxfecUniversity Hospitals Health System Axxnnyry08-20-0688 pneumococcal conjugate vaccine, 13 Dalila Cooper fisher367-4018Hupwzs-WrwnxSaint David'S Round Rock Medical Centerue09-16-2014 pneumococcal conjugate vaccine, 7 Ema Ham MD Work Phone: [facility] Healthcare Payers DatePayer CategoryPayerPolicy WI09-37-1350Rnxtzbs Health Insurance [id number]-plf [id number] Eligibility Medicare/Medicaid [facility] [place] [id number] [id number] 2023Medicare (Managed Care)[id number] 2023Medicare [id number] [id number] [id number] [id number] [id number] 1960 [id number] 2.16.840.1.058494.3.579.2.647 [id number] 2.16.840.1.422776.3.57[id number] 2.16.840.1.156943.3.57[id number] 2.16.840.1.220200.3.579.2.28990-11-6939Lrgkicy5142890 2.16.840.1.961071.3.579.2.24344-42-6448Vevhklx5711723 2.16.840.1.446659.3.57[id number] 2.16.840.1.254063.3.57[id number] 2.16.840.1.899786.3.57[id number] 2.16.840.1.128110.3.579.[id number] 2.16.840.1.340645.3.57[id number] 2.16.840.1.297751.3.57[id number] 2.16.840.1.503036.3.579.2.69434-82-3161Rzaeykd7374941 2.16.840.1.516771.3.579.2.70474-31-0716Ueilxye0258508 2.16.840.1.921522.3.57[id number] 2.16.840.1.074718.3.579.2.05768-86-3604Rgydshw3635002 2.16.840.1.388092.3.579.2.71135-51-6546Dchmdfe4278817 2.16.840.1.221873.3.579.2.98515-53-1702Huxwqaa0517278 2.16.840.1.677997.3.579.2.04341-16-7792Wgfarsb8323371 2.16.840.1.936780.3.579.2.58538-20-5853Tnsgmtn4408375 2.16.840.1.975704.3.579.2.39090-13-0867Kfjuwda7887304 2.16.840.1.144814.3.579.2.36686-74-4815Ilyadsw727724665 2.16.840.1.955876.3.579.2.96498-40-4081Vnxtebw795104877 2.16.840.1.747817.3.579.2.37663-68-5837Hitewhl909412257 2.16.840.1.915527.3.579.2.37295-27-8894Cytrgcu60751744 2.16.840.1.500263.3.579.2.66769-25-3882Czkltze62822421 2.16.840.1.784677.3.579.2.84797-32-3534Kqxteoh61218899 2.16.840.1.197636.3.579.2.04457-69-6239Cdfiijz77713294 2.16.840.1.073962.3.579.2.72646-37-0448Atamqjr90075723 2.16.840.1.333587.3.579.2.23816-78-5002Hqwbcmz85162103 2.16.840.1.016048.3.57[id number] 2.16.840.1.427991.3.579.2.20365-02-3663Foshbhj14226392 2.16.840.1.103154.3.579.2.79230-90-4305Ohfssiu65164605 2.16.840.1.274036.3.579.2.10780-29-8728Jzwcoio81039948 2.16.840.1.531946.3.579.2.39963-20-1229Ktyobon05722819 2.840.1.043680.3.579.[id number] 2.16.840.1.655790.3.579.2.38045-57-0179Agwuohk42486232 2..840.1.088092.3.579.2.27995-58-5584Itnrqor20585744 2..840.1.847485.3.579.2.06369-69-2548Szpfevw92014194 2.840.1.710970.3.579.2.63562-54-3955Senrfbe57463853 2.16.840.1.810715.3.579.2.74797-53-2840Xpeavxx00424558 2.16.840.1.906270.3.579.2.09892-92-2458Dqlpsxe71486795 2.16.840.1.734276.3.579.2.31443-25-5789Hkoiipp538497408 2.16.840.1.508289.3.579.2.509574-83-8087Bwjnzyb420815700 2.16.840.1.482509.3.579.2.800546-07-4753Bxkulah224218852 2.16.840.1.705498.3.579.2.853995-36-2362Glpepmx284585591 2.16.840.1.170485.3.579.2.463926-82-1568Zqbbsxc295080666 2.16.840.1.762687.3.579.2.546593-17-9826Zgfvuyy830088032 2.16.840.1.036871.3.579.2.691922-79-5557Dceeqpd03662045 2.16.840.1.743903.3.579.2.571641-87-9685Emsexrf38276627 2.16.840.1.863591.3.579.2.312849-87-7415Xjyzqoj46957226 2.16.840.1.082160.3.579.2.867596-58-5309Sohjohm66726208 2.16.840.1.745849.3.579.2.110265-36-6854Hvclacq09103582 2.16.840.1.873578.3.579.2.940551-40-8664Rsgdesy5900394 2.16.840.1.576378.3.579.2.074166-49-0076Fehwwyd4839617 2.16.840.1.773616.3.579.2.011844-14-8229Andrvlj7458794 2.16.840.1.875040.3.579.2.488663-33-0368Intlfnu1364463 2.16.840.1.672969.3.579.2.055418-35-3080Ljogvog4723665 2.0.1.523469.3.579.2.168568-13-4013Jmnlvuy6545501 2.840.1.345348.3.579.2.341264-91-0222Pwxvxyn1220720 2.0.1.986087.3.579.2.902394-51-4311Ljbexaw1987201 2.0.1.570028.3.579.2.851452-22-3351Xqormjz8758223 2..1.542264.3.579.2.729716-73-6845Ijjxkzr7687521 2..1.902391.3.579.2.678326-41-4231Nbjdoaw0777396 2..1.784993.3.579.2.967257-17-9250Yuiztth6451902 2.840.1.503461.3.579.2.3277Hkbzyjp27687981 2.840.1.985968.3.579.2.531 Gywnhfz54347358 2.0.1.023771.3.579.2.481Kkfpwgx39757068 2.0.1.793767.3.579.2.500Tgjddtn50476041 2.840.1.870981.3.579.2.531 Qyffmzb37566454 2.840.1.982812.3.579.2.205Qnhjuqy20516745 2.840.1.225098.3.579.2.489Ddgjjbp18652856 2.840.1.124558.3.579.2.531 Awbyfmd90080807 2.16.840.1.161195.3.579.2.389Nyjqcrw55260999 2.16.840.1.943526.3.579.2.797Qymzzax33669477 2.16.840.1.382252.3.579.2.531 Eprzuei68914815 2.16.840.1.079655.3.579.2.598Yeedidf12753226 2.16.840.1.809984.3.579.2.537Ccttxag53328403 2.16.840.1.044243.3.579.2.531 Qtfooke64297280 2.16.840.1.884211.3.579.2.547Xdjvqrp39537909 2.16840.1.171086.3.579.2.226Cpfzswi86951417 2.840.1.434946.3.579.2.531 Hrmbssn44509075 2.16840.1.154315.3.579.2.285Iykjdri43713979 2.16840.1.351959.3.579.2.135Xcrkokb33468601 2.16840.1.855062.3.579.2.531 Ldbohhj22863099 2.840.1.602867.3.579.2.651Iiudsyx19805079 2.840.1.955892.3.579.2.336Elfalhx43878462 2.840.1.442513.3.579.2.531 Social History DateTypeDetailFacilityTobacco smoking status NHISUnknown if ever smokedBarnesville Hospital CtrStart: 14-11-2597Dpc Assigned At [facility] CenterStart: 04-01-2023 End: 97-66-1099Tpa Assigned At [facility] Hospitaltart: 04-27-2022 End: 19-91-0917Kmxxctu smoking statusEx-smoker (finding)[facility] on above:former smoker quit at age 41, 1 PPDPatient states he smoked about 1.5 PPD, cigarettes, from about 17 y.o. to about 41 y.o.Start: 05-15-1339Fceqpth smoking statusNeverExec[facility] on above:former smoker quit at age 41, 1 PPDPatient states he smoked about 1.5 PPD, cigarettes, from about 17 y.o. to about 41 y.o. End: 01-89-5307Llhzoui of tobacco useCurrent smokerWright-Patterson Medical Center End: 16-23-3851Mmzuecv of tobacco useCigarette SmokerOhioHealth Riverside Methodist Hospitaltart: 86-83-9546Lcmrmcp use and exposureSmokeless tobacco non-userWright-Patterson Medical Center Start: 04-01-2023 End: 00-83-7928Cwmkozr of Social functionOhioHealth Riverside Methodist Hospitaltart: 74-16-5931Jef Assigned At BirthNot on fileWright-Patterson Medical CenterHistory of tobacco usePassive smoker [facility] HealthcareStart: 02-12-2024 End: 64-11-7928Oeutsrzmm beverage intakeCurrent drinker of alcohol (finding)[facility] HealthcareStart: 70-33-5436Noyucum CommentYears smoked: 25[facility] HealthcareStart: 74-59-8212Zrhwngo Comment1 or 2 drinks/day, monthly or less; Caffeine: 1 drink/dayVALLEY VIEW MEDICAL CENTER HealthcareStart: 04-07-2024 End: 44-78-0796Rjhqdec use and exposureFormer smokeless tobacco userDoctors Hospital Work Phone: Start: 04-01-2024 End: 72-35-5271Rjfdsvdl to SARS-CoV-2 (event)Not sureUnOhioHealth Shelby HospitalStart: 45-10-3305Mjrthx identityIdentifies as male gender (finding) [facility] Work Phone: Start: 29-99-4279Jyqvwk orientationHeterosexual (finding)[facility] Work Phone: Start: 06-14-2024 End: 32-82-9034QdcReff (finding)[facility]tart: 08-20-2024 End: 76-15-8348Udrydsu smoking status NHISNever smoked tobacco (finding) [facility]tart: 60-09-8727YURG Follow upSDOH Follow up [facility] Work Phone: [facility] Start: 48-28-1190Bzspcrg Commentor less or week [facility] Work Phone: Medical Equipment Procedure CodeEquipment CodeEquipment Original TextEquipment IdentifierDates Insertion of central venous catheter (CVC) with subcutaneous port for chemotherapyVascular port/[id number] FDA Start: 07-17-2024 End: 52-38-7177Rmb Instructions, one touch ultra test strips test sugars once a dayStart: 60-89-7958Tmk Instructions, one touch ultra lancets Use to test sugars once a dayStart: 39-31-0722Ncu Instructions, one touch ultra test strips test sugars once a dayStart: 73-77-2791Nbq Instructions, one touch ultra lancets Use to test sugars once a dayStart: 05-53-4657Unb Instructions, one touch ultra test strips test sugars once a dayStart: 53-11-5530Ymp Instructions, one touch ultra lancets Use to test sugars once a dayStart: 34-67-0863Eul Instructions, one touch ultra test strips test sugars once a dayStart: 59-99-0162Qtp Instructions, one touch ultra lancets Use to test sugars once a dayStart: 49-06-1699Nrk Instructions, one touch ultra test strips test sugars once a dayStart: 25-99-4086Nbj Instructions, one touch ultra lancets Use to test sugars once a dayStart: 22-02-2024Pmo Instructions, one touch ultra test strips test sugars once a dayStart: 94-59-9255Eze Instructions, one touch ultra lancets Use to test sugars once a dayStart: 96-56-9894Xzl Instructions, one touch ultra test strips test sugars once a dayStart: 85-40-5098Trh Instructions, one touch ultra lancets Use to test sugars once a dayStart: 38-87-1622Etc Instructions, one touch ultra test strips test sugars once a dayStart: 62-73-3541Jvw Instructions, one touch ultra lancets Use to test sugars once a dayStart: 27-35-0526Cxz Instructions, one touch ultra test strips test sugars once a dayStart: 29-97-2997Iis Instructions, one touch ultra lancets Use to test sugars once a dayStart: 33-61-0304Knf Instructions, one touch ultra test strips test sugars once a day Start: 75-96-6750Bbc Instructions, one touch ultra lancets Use to test sugars once a dayStart: 81-77-2165Vqg Instructions, one touch ultra test strips test sugars once a dayStart: 90-95-2388Pwv Instructions, one touch ultra lancets Use to test sugars once a dayStart: 08-15-2084Vka Instructions, one touch ultra test strips test sugars once a dayStart: 76-48-8849Ljz Instructions, one touch ultra lancets Use to test sugars once a dayStart: 01-85-2270Iwo Instructions, one touch ultra test strips test sugars once a dayStart: 76-41-3092Utp Instructions, one touch ultra lancets Use to test sugars once a dayStart: 81-50-5268Yrm Instructions, one touch ultra test strips test sugars once a dayStart: 24-24-4240Yho Instructions, one touch ultra lancets Use to test sugars once a dayStart: 47-28-9278Qia Instructions, one touch ultra test strips test sugars once a dayStart: 44-91-6119Avx Instructions, one touch ultra lancets Use to test sugars once a dayStart: 91-41-6837Ker Instructions, one touch ultra test strips test sugars once a dayStart: 73-19-9955Eop Instructions, one touch ultra lancets Use to test sugars once a dayStart: 25-17-3882Tbm Instructions, one touch ultra test strips test sugars once a dayStart: 76-95-5565Maq Instructions, one touch ultra lancets Use to test sugars once a dayStart: 08-24-2022 Goals DatePatient GoalDesired Activity/State Functional Status QfbeXcdradgiklMozuaxCdwxkqev04-24-8403Dmephdc Health Questionnaire 2 item (PHQ- 2) [Reported][facility] Work Phone: 1(677) 426-918704905302-10-9118Cijixeqpyf statusPatient at Baseline [facility] Work Phone: 1(746) 919-38581189709-36-2129Ddbvgjvoxd StatusN/[facility] Bdlnxj70-22-3845Eezfyshlml StatusN/[facility] Jpjjrx71-01-1153Gkriojoatb StatusN/[facility] Lcxryu02-50-5519Uczzmhrqym StatusN/[facility] Qszndh54-12-5175Mfhlqdccdu StatusN/[facility] Joemfe98-34-0024Nurhnfnfnd StatusN/[facility] Qrxybf81-33-2411Fmspgfkohj StatusN/[facility] Qecjfb84-10-1750Yyqrldsiqo StatusN/[facility] 69-75-7843Rbiyngpoge StatusN/[facility] Mental Status TzehUecvcwtldeAfxoogDsorpgcx31-28-1000Jigdospzu functionCognitive Status Patient at BaselineOur Lady Of Mercy Hospital Work Phone: Clinical Notes 11-29-2021 to 01-18-2025 Note Date & FwfiVxddBnpaawjo88-40-7251 History of Present illness Narrative* Veena Ross, DO - 01/18/2025 9:45 AM EDT Images from the original note [...] I'll see him PRN. documented in this encounterPemiscot Memorial Health SystemsWeucjmfxro39-07-8646 Evaluation note* Diagnosis Onset Date Resolution Status Admit Date Squamous cell carcinoma of oropharynx acuteAugust 2024 12:32pmSquamous cell carcinoma of oropharynxacuteOctober 2024 9:41am [facility] Work Phone: 1(102) 238-855208-12-2025 [facility] [place] [address] Cancer Center Note Signed Patient: Jeremie Bennett MR#: [id number] : 1940 Acct:[id number] Age/Sex: 84 / M Type: DEP AMB [...] chemoradiation using IMRT and daily IGRT to adose of 69.96 Haque in 33 fractions to the gross disease withapproximately 50-52 Haque to the elective neck. Returns to clinic today with posttreatment PET from November 13, 2024 which is negative. We are pleased with his progress and he continues to have no issues with oral intake. The G-tube was placed by surgery here at [facility] and patient is hopeful to [...] an enlarged right level 2Aand 2B lymph nodes.Measuring 1.5 cm level 2B with a prominent [...] Extended-Release) Allergy (Unknown, Verified 11/23/24 10:00) hives [facility] Medical History Medical History (Updated 11/23/24 @ [...] Glaucoma Mother Heart disease [facility]: Diagnosed with Stroke Hypertension Emphysema lung ESRD (end stage renal disease) Sister Cancer [facility] Problem: Diagnosed with Cancer Lymphoma Social [...] Becky Crouch APRN DD/ 1303 Signed By: 12/26/24 1343 [facility]07-28-2025 History of Present illness Narrative * Mary Schneider MD - 12/11/2024 1:45 PM EDT HEAD AND NECK SURGERY FOLLOW UP [facility] Referring Provider: Dr. 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 JUVE today on exam or imaging - Continue LOGISTICS SUPPORT therapy, he will do this closer to [...] concerns Mary Schneider MD documented in this [facility] Work Phone: 1(153) 731-268507-22-2025 NoteUT Electrophysiology Consult Note [place] [facility] Reason [...] on file Intimate Partner Violence: Unknown (07/08/2023) [place] Safety & Environment Fear of Current or Ex-Partner: Not on file Emotionally Abused: Not on file Physically Abused: Not on file Sexually Abused: Not on file Physically or Sexually Abused: Not on file Depression: Not at risk (09/11/2024) [facility]Q-2 Patient Health Questionnaire-2 Score: 0 [...] MOUTH IN THE MORNING 100 tablet 3 GIMCOVQYGQ-XFQOQYO-DBYMZFRQ ORAL Take by mouth if needed. clopidogrel [...] 1 tablet every day by oral route. bmwvgbfvym-hnsmaaihcsfyw-clva (Esgic) 50-325-40 mg capsule Take 1 capsule [...] mg by mouth in the morning. HYDROcodone-acetaminophen ([place]) 5-325 mg tablet Take 1 tablet by mout (more content not included)...[facility]07-10-[facility]Un[facility] [place] [address] Cancer Center Note Signed Patient: Jeremie Bennett MR#: [id number] : 1940 Acct:[id number] Age/Sex: 84 / M Type: REG AMB [...] by IHC was equivocal. As per the [facility] tumor board recommendation is either [...] his week 1 of cisplatin. Labs at [facility] on 07/03/24 revealed hgb 13.3, cr is 1.0. He is having his labs here today.He had his pacemaker placed on 07/10/24 in [place]. 07/20/2024 he came in complaining of increase bilateral ears ringing which she hasas a baseline but it increased compared with before after cycle or week 2 of theweekly cisplatin. He denies any hearingdeficiency however. He has some sore throat from the radiation. He was given oxycodone and Magic swizzle by the radiation oncology. 07/26/24: He is here for week 2 of Decetaxel after receiving 2 weeks of cisplatin changed to Docetaxel due toincreased tinnitus on Cisplatin. He continues to have [...] silvadine and Dombero for the neck skin givenby Rad onc. He also uses magic swizzle for the raw throat. Labs are unremarkable except mild worsening anemia hemoglobin down to 10.4 on 08/21/2024. W BC and platelets are normal. Absolute neutrophil count is normal. 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 [...] positive squamous cell carcinoma. Tumor board at [facility] and the recommended [...] with concurrent chemoradiation. Since he lives in [place] he was referred by Dr. Mary Schneider from ENT at [facility] to our medical oncology and radiation oncology at [facility]. He is referred to medical [...] his week 1 of cisplatin. Labs at [facility] on 07/03/24 revealed hgb 13.3, cr is 1.0. He is having his labs here today.He had his pacemaker placed on 07/10/24 in [place]. 07/20/2024 he came in complaining of increase bilateral ears ringing which she hasas a baseline but it increased compared with before after cycle or week 2 of theweekly cisplatin. He denies any hearingdeficiency however. He has some sore throat from the radiation. He was given oxycodone and Magic swizzle by the radiation oncology. 07/26/24: He is here for week 2 of Decetaxel after receiving 2 weeks of cisplatin changed to Docetaxel due toincreased tinnitus on Cisplatin. He continues to have [...] silvadine and Dombero for the neck skin givenby Rad onc. He also uses magic swizzle for the raw throat. Labs are unremarkable except mild worsening anemia hemoglobin down to 10.4 on 08/21/2024. W BC and platelets are normal. Absolute neutrophil count is normal. The potassium is 3.3 otherwise unremarkableCMP except for magnesium of 1.8 and calcium [...] NO concerns voiced at time of intake. [facility] Medical History Medical History Squamous cell carcinoma [...] disease [facility]: Diagnosed with Stroke Hypertension Emphysema lung ESRD (end stage renal disease) Sister Cancer [facility] Problem: Diagnosed with Cancer Lymphoma Social [...] Talib Faustin MD DD/ [id number] Signed By: 11/23/24 1026 [facility]07-10-2025 Evaluation note* Diagnosis Onset Date Resolution Status Admit Date Cancer associated pain acuteJuly 2024 7:46amSquamous cell carcinoma of oropharynxacuteJuly 2024 7:46amSquamous cell carcinoma of oropharynxacuteJuly 2024 9:41am Squamous cell carcinoma of oropharynxacuteJuly 2024 10:01amSquamous cell carcinoma of oropharynxacuteAugust 2024 12:32pm [facility] Work Phone: 1([phone]) 481-214807-08-2025 NotePatient Education Endocrinology Blood Glucose Monitoring, Adult [...] Where to find more information ??? The [place] Diabetes Association: diabetes.org ??? The Association of [...] levels in y (more content not included)... 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 Gait Casual gait is normal including [...] up in 6 months documented in this encounterPemiscot Memorial Health SystemsXvkgyffmpp88-59-7000 History of Present illness Narrative* Veena Ross, [...] 5 mg, Daily aspirin 81 mg, Daily bakcosufrs-xbukesaqkksip-bhtxbbkw 50-325-40 MG tablet 1 tablet, Every 4 [...] mellitus with diabetic neuropathy (CMS/HCC) Ventricular tachycardia ([facility]) Social History Tobacco Use Smoking status: Former [...] 2005 ablation OTHER SURGICAL HISTORY 2007 sphincterotomy [place] CHOLECYSTECTOMY 02/2020 Laparoscopic Cholecystectomy - [place] IMPLANT ARTIFICIAL SPHINCTER 2017 PROSTATE 2000 TONSILLECTOMY [...] schedule early next week. documented in this encounterPemiscot Memorial Health SystemsNewhfmjdqr31-82-7504 Radiology Diagnostic study [facility] [place] [address] [place] [address] CT Scan Report Signed Patient: Jeremie Bennett MR#: [id number] : 1940 Acct:[id number] Age/Sex: 83 / M ADM Date: 5 Loc: ER Room: Type: [facility] ER Attending Dr: Copies to: Maru [...] Gordon M.D. 09/20/2024 8:03 PM Dictation Location: [place] [address] Transcribed By: [facility] 09/20/242002 Dictated By: Rafi Gordon II, MD 09/20/241947 Signed By: 09/20/242002 [facility] Work Phone: 1(675) 662-639005-07-2025 Hospital Discharge instructions Additional Instructions Please return [...] testing/monitoring to rule out evidence of possible cancer.[facility] Work Phone: 1([phone]) 384-162005-01-2025 NotePatient Education Nutrition BMI for Adults Body [...] for Disease Control and Prevention: cdc.gov ??? [place] Heart Association: heart.org ??? National Heart, Lung, and Blood [place]: nhlbi.nih.gov This information is not intended to replace advice given to you by your health care provider. Make sure you discuss any questions you have with your health care provider. Document Revised: 01/21/2023 Document Reviewed: 01/14/2023 [employer] Patient Education ? 2023 [facility] 09-11-2024 History of Present illness Narrative* Mary Shcneider MD - 09/11/2024 2:00 PM EDT HEAD AND NECK SURGERY FOLLOW UP [facility] Referring Provider: Dr. Ham HPI I had the pleasure of seeing Jeremie Annabelle Bennett as a follow up today. Spouse [...] onc) and Dr Lamas (med onc) at [facility] Returns after completion of chemoradiation treatment earlier this month. Weight down to 149 lbs (prior 170 lbs). Swallowing liquids, saw LOGISTICS SUPPORT during treatment, not recently. Had pacemaker replaced. [...] lymph nodes Procedure Note: Diagnostic Flexible Laryngoscopy (63971) Indication: patient symptoms requiring evaluation of pharyngeal/laryngeal/hypopharyngeal [...] now s/p completion of chemoradiation treatment at [facility] August 2024 - Doing well overall, scope and exam findings as expected - Recommend continued LOGISTICS SUPPORT therapy, he will do this closer to home - Discussed imaging, he has PET scheduled in November - Will need post-treatment NavDx either now or at next appointment - Discussed NCCN guidelines and ongoing surveillance - Follow up with me in 2-3 months after PET, certainly sooner if any issues Mary Schneider MD documented in this [facility] Work Phone: 1(593) 568-327504-24-2025 Evaluation note* Diagnosis Onset Date Resolution Status Admit Date Tongue cancer acuteApr2024 9:14amCAD (coronary artery disease)acuteApr2024 9:55amCentral sleep apneaacuteApr2024 9:55amDM (diabetes mellitus)acute September 11, 2024 9:55amEssential hypertensionacuteApr2024 9:55am Obstructive sleep apneaacuteApr2024 9:55amSquamous cell carcinoma of oropharynxacuteApril 2024 9:55amCancer associated painacuteMay 2024 2:36pmSquamous cell carcinoma of oropharynxacuteMay 2024 2:36pmThrush, oralacuteMay 2024 2:36pmCancer associated painacuteJuly 2024 7:46am Squamous cell carcinoma of oropharynxacuteJuly 2024 7:46amSquamous cell carcinoma of oropharynxacuteJuly 2024 9:41amTongue canceracuteJuly 2024 10:01am [facility] Work Phone: 1(555) 186-910504-24-2025 Evaluation note* Diagnosis Onset Date Resolution Status Admit Date Tongue cancer deletedApril 2024 9:14amCAD (coronary artery disease)acuteApril 2024 9:55amCentral sleep apneaacuteApril 2024 9:55amDM (diabetes mellitus)acute Nicole 2024 9:55amEssential hypertensionacuteApril 2024 9:55am Obstructive sleep apneaacuteApril 2024 9:55amSquamous cell carcinoma of oropharynxacuteApril 2024 9:55amCancer associated painacuteMay 2024 2:36pmSquamous cell carcinoma of oropharynxacuteMay 2024 2:36pmThrush, oralacuteMay 2024 2:36pmCancer associated painacuteJuly 2024 7:46am Squamous cell carcinoma of oropharynxacuteJuly 2024 7:46amSquamous cell carcinoma of oropharynxacuteJuly 2024 9:41amSquamous cell carcinoma of oropharynxacuteJuly 2024 10:01am [facility] Work Phone: 1(746) 348-520604-07-[address] [address] Discharge Summary Signed Patient: Jeremie Bennett MR#: [id number] : 1940 Acct:[id number] Age/Sex: 83 / M Adm Date: 5 Loc: 3T Room: 1K2467-[address]: Zeke Brennan MD Copies to: [...] was discharged home stable condition [facility] with few more days of oral [...] Continuity of Care Document Health Concerns: A [facility] screening has identified you as FRAIL [...] Strong:Four Ways to Beat the Frailty Risk [email or web address] mvrx-vb-wazw-dsu-hwuaeun-cggn Exam Physical Exam Vital Signs: Temp Pulse [...] % (Auto) 75.8, Lymph % (Auto) 9.0, [place] % (Auto) 13.6, Eos % (Auto) 1.0, Baso % (Auto) 0.6, Nucleat RBC Rel Count 0.1, Neut # (Auto) 4.7, Lymph # (Auto) 0.6 L, [place] # (Auto) 0.8, Eos # (Auto) 0.1, [...] % (Auto) 77.0, Lymph % (Auto) 10.5, [place] % (Auto) 11.3, Eos % (Auto) 0.7, Baso % (Auto) 0.5, Nucleat RBC Rel Count 0.2, Neut # (Auto) 5.7, Lymph # (Auto) 0.8 L, [place] # (Auto) 0.8, Eos # (Auto) 0.1, Baso # (Auto) 0.0, Monocyte Dist Width 23.19 H, ESR 42 H, PT 12.9, INR 1.1, Lactic Acid 0.8, C-Reactive Prot, Quant Cancelled 08/20/24 12:20: PHA Creatinine Clear 58.71, Sodium 136, Potassium 3.7, Chloride 104, Carbon Wvhfvou56.4, Anion Gap 10.3, BUN 16, Creatinine 0.85, Est GFR (CKD- EPI) > 60.0, Glucose 106 H, Calcium 8.4 L, Total Bilirubin 0.6, AST 18, ALT 17, Alkaline Phosphatase 66, C-Reactive Prot, Quant 3.3 H, Total Protein 5.9 L, Albumin 3.4 L, Globulin 2.5, Albumin/Globulin Ratio 1.4 Documented By: Zeke Brennan MD 08/21/24 1407 Signed By: 08/21/24 1414 [facility]04-07-20[place] [address] Hospitalist Progress Note Signed Patient: Jeremie Bennett MR#: [id number] : 1940 Acct:[id number] Age/Sex: 83 / M Adm Date: Loc: Room: [address] [place] [address] Type: ADM IN Attending Dr: Zeke Brennan [...] care and confirmed it with the re sident/student/COFFEE F[employer]ER. This patient presented to the emergency department [...] spray 08/21/24 09:00 08/21/24 09:02 Fluticasone Propionate Underwood 120 Underwood/16 Gm Bottle INTRANASAL 08/21/25 08:59 2 spray [...] Drops/2.5 Ml Bottle EYE-BOTH 08/21/25 20:59 QPM [facility] Lidocaine/Prilocaine 1 applic 08/20/24 21:59 Lidocaine-Prilocaine Cr 2.5-2.5% 5 Gm Tube TOPICAL 08/20/25 21:58 ONCE PRN pain Metformin HCl 500 mg 08/21/24 08:00 08/21/24 09:00 Metformin 500 Mg Tablet PO 08/21/25 07:59 500 mg DAILY@0800 [facility] Administration Multi-Ingredient Mouthwash/Gargle 10 ml 08/20/24 [...] 10 Mg Tablet PO 08/21/25 21:59 QHS [facility] Sennosides 8.6 mg 08/20/24 21:59 08/21/24 09:00 [...] Tablet PO 08/21/25 08:59 40 mg BID CINTHAI Administration Tizanidine HCl 4 mg 08/21/24 21:00 [...] 1135 Signed By: 08/21/24 1414 08/21/24 1152 [facility]04-07-2025 Consult note Author Yash Thomas [facility] HospitalNote Date/TimeApril 2024 11:10[place] [address] Infect. Disease Consult Note Signed Patient: Jeremie Bennett MR#: [id number] : 1940 Acct:[id number] Age/Sex: 83 / M Adm Date: 5 Loc: Room: [address] [place] [address] Type: ADM IN Attending Dr: Zeke Brennan [...] at 10 PM CC: Zeke Brennan MD [facility] Medical History Pacemaker Prostate cancer surgery Neuropathy [...] (end stage renal disease) [facility]: Diagnosed with Cancer Lymphoma Social [...] 81 Mg Tab.Chew) 81 mg PO DAILY [facility] Stop: 08/21/25 08:59 Last Admin: 08/21/24 09:01 Dose: 81 mg Atorvastatin Calcium (Atorvastatin 20 Mg Tablet) 20 mg PO QPM [facility] Stop: 08/21/25 20:59 Clopidogrel Bisulfate (Clopidogrel Bisulfate 75 Mg Tablet) 75 mg PO DAILY [facility] Stop: 08/21/25 08:59 Last Admin: 08/21/24 09:00 Dose: 75 mg Dorzolamide HCl (Dorzolamide 2% Op Soln 200 Drops/10 Ml Bottle) 1 drops EYE-BOTH BID [facility] Stop: 08/21/25 08:59 Last Admin: 08/21/24 09:04 Dose: 1 drops Famotidine (Famotidine 20 Mg Tablet) 20 mg PO QPM [facility] Stop: 08/21/25 20:59 Fentanyl (Fentanyl Patch 12 Mcg/Hour Patch.Td72) 12 mcg TRANSDERML Q72HR [facility]INTHIA; Protocol Fluticasone Propionate (Fluticasone Propionate Underwood 120 Underwood/16 Gm Bottle) 2 spray INTRANASAL QAMS[facility] Stop: 08/21/25 08:59 Last Admin: 08/21/24 09:02 Dose: 2 spray Ceftriaxone Sodium (Rocephin) 1 gm in 50 mls @ 100 mls/hr IV QHS [facility] Isosorbide Mononitrate (Isosorbide Mononitrate 24hr Er 30 Mg Tab.Er.24h) 30 mg PO QAM [facility] Stop: 08/21/25 08:59 Last Admin: 08/21/24 09:00 Dose: 30 mg Latanoprost (Latanoprost 0.005% Op Soln 50 Drops/2.5 Ml Bottle) 1 drops EYE-BOTH QPM [facility] Stop: 08/21/25 20:59 Lidocaine/Prilocaine (Lidocaine-Prilocaine Cr 2.5-2.5% 5 Gm Tube) 1 applic TOPICAL ONCE PRN PRN Reason: pain Stop: 08/20/25 21:58 Metformin HCl (Metformin 500 Mg Tablet) 500 mg PO DAILY@0800 [facility] Stop: 08/21/25 07:59 Last Admin: 08/21/24 09:00 Dose: 500 mg Multi-Ingredient Mouthwash/Gargle (Magic Mouthwash With Lidocaine) 10 ml PO QIDPRN PRN Reason: mucositis Stop: 08/20/25 22:46 Nystatin (Nystatin Susp 500,000 Unit/5 Ml Udc) 500,000 unit PO QID [facility] Stop: 08/21/25 08:59 Last Admin: 08/21/24 09:01 Dose: 500,000 unit Olanzapine (Olanzapine 2.5 Mg Tablet) 2.5 mg PO BID [facility] Stop: 08/21/25 08:59 Last Admin: 08/21/24 09:00 Dose: 2.5 mg Ondansetron HCl (Ondansetron Odt 4 Mg Tab.Rapdis) 8 mg PO Q8HR PRN PRN Reason: nausea and vomiting Stop: 08/20/25 22:49 Oxycodone HCl (Oxycodone Ir 5 Mg Tablet) 10 mg PO Q4HR PRN PRN Reason: pain Last Admin: 08/21/24 09:01 Dose: 10 mg Pantoprazole Sodium (Pantoprazole 40 Mg Tablet.Dr) 40 mg PO BID [facility] Stop: 08/21/25 08:59 Last Admin: 08/21/24 09:00 Dose: 40 mg Rivaroxaban (Rivaroxaban 10 Mg Tablet) 10 mg PO QHS [facility] Stop: 08/21/25 21:59 Sennosides (Sennosides 8.6 [...] 25 Mg Capsule) 25 mg PO BID [facility] Stop: 08/21/25 08:59 Last Admin: 08/21/24 [...] signed by MD Yash Thomas> 08/21/24 1110 [facility] Work Phone: 1(660) 497-656904-07-2025 [place] [address] Infect. Disease Consult Note Signed Patient: Jeremie Bennett MR#: [id number] : 1940 Acct:[id number] Age/Sex: 83 / M Adm Date: 5 Loc: Room: [address] [place] [address] Type: ADM IN Attending Dr: Zeke Brennan [...] at 10 PM CC: Zeke Brennan MD [facility] Medical History Pacemaker Prostate cancer surgery Neuropathy [...] 81 Mg Tab.Chew) 81 mg PO DAILY [facility] Stop: 08/21/25 08:59 Last Admin: 08/21/24 09:01 Dose: 81 mg Atorvastatin Calcium (Atorvastatin 20 Mg Tablet) 20 mg PO QPM [facility] Stop: 08/21/25 20:59 Clopidogrel Bisulfate (Clopidogrel Bisulfate 75 Mg Tablet) 75 mg PO DAILY [facility] Stop: 08/21/25 08:59 Last Admin: 08/21/24 09:00 Dose: 75 mg Dorzolamide HCl (Dorzolamide 2% Op Soln 200 Drops/10 Ml Bottle) 1 drops EYE-BOTH BID [facility] Stop: 08/21/25 08:59 Last Admin: 08/21/24 09:04 Dose: 1 drops Famotidine (Famotidine 20 Mg Tablet) 20 mg PO QPM [facility] Stop: 08/21/25 20:59 Fentanyl (Fentanyl Patch 12 Mcg/Hour Patch.Td72) 12 mcg TRANSDERML Q72HR [facility]; Protocol Fluticasone Propionate (Fluticasone Propionate Underwood 120 Underwood/16 Gm Bottle) 2 [facility] Stop: 08/21/25 08:59 Last Admin: 08/21/24 09:02 Dose: 2 spray Ceftriaxone Sodium (Rocephin) 1 gm in 50 mls @ 100 mls/hr IV QHS [facility] Isosorbide Mononitrate (Isosorbide Mononitrate 24hr Er 30 Mg Tab.Er.24h) 30 mg PO QAM [facility] Stop: 08/21/25 08:59 Last Admin: 08/21/24 09:00 Dose: 30 mg Latanoprost (Latanoprost 0.005% Op Soln 50 Drops/2.5 Ml Bottle) 1 drops EYE-BOTH QPM [facility] Stop: 08/21/25 20:59 Lidocaine/Prilocaine (Lidocaine-Prilocaine Cr 2.5-2.5% 5 Gm Tube) 1 applic TOPICAL ONCE PRN PRN Reason: pain Stop: 08/20/25 21:58 Metformin HCl (Metformin 500 Mg Tablet) 500 mg PO DAILY@0800 [facility] Stop: 08/21/25 07:59 Last Admin: 08/21/24 09:00 Dose: 500 mg Multi-Ingredient Mouthwash/Gargle (Magic Mouthwash With Lidocaine) 10 ml PO QIDPRN PRN Reason: mucositis Stop: 08/20/25 22:46 Nystatin (Nystatin Susp 500,000 Unit/5 Ml Udc) 500,000 unit PO QID [facility] Stop: 08/21/25 08:59 Last Admin: 08/21/24 09:01 Dose: 500,000 unit Olanzapine (Olanzapine 2.5 Mg Tablet) 2.5 mg PO BID [facility] Stop: 08/21/25 08:59 [...] 40 Mg Tablet.Dr) 40 mg PO BID [facility] Stop: 08/21/25 08:59 Last Admin: 08/21/24 09:00 Dose: 40 mg Rivaroxaban (Rivaroxaban 10 Mg Tablet) 10 mg PO QHS [facility] Stop: 08/21/25 21:59 Sennosides (Sennosides 8.6 [...] 10 Ml Syringe) 10 ml IV-PUSH Q8H [facility] Stop: 08/20/25 19:44 Last Admin: 08/21/24 03:06 Dose: Not Given Sotalol HCl (Sotalol 80 Mg Tablet) 40 mg PO BID [facility] Stop: 08/21/25 08:59 Last Admin: 08/21/24 09:01 Dose: 40 mg Tizanidine HCl (Tizanidine 4 Mg Tablet) 4 mg PO QPM [facility] Stop: 08/21/25 20:59 Zonisamide (Zonisamide 25 Mg Capsule) 25 mg PO BID [facility] Stop: 08/21/25 08:59 Last Admin: 08/21/24 [...] MD 08/21/24 1053 Signed By: 08/21/24 1110 [facility]04-07-2025 Radiology Diagnostic study note [facility] [address] [place], [place] [id number] CT Scan Report Signed Patient: Jeremie Bennett MR#: [id number] : 1940 Acct:[id number] Age/Sex: 83 / M ADM Date: 5 Loc: Room: [address] [place] [address] Type: ADM IN Attending Dr: Jaiden Nance [...] Christian Melton M.D.08/21/2024 5:58 AM Dictation Location: RADIO-PC-20 Transcribed By: [facility] 08/21/2458 Dictated By: Christian Melton DO 08/21/24 0555 Signed By: 08/21/24 0558 [facility]03-26-2025 Progress note Author Debora Widl [facility]Note Date/TimeMarch 2024 10:25[place] [id number] Palliative Medicine Encounter Patient: Jeremie Bennett MR#: [id number] : 1940 Acct:[id number] Age/Sex: 83 / M Copies to: RAYSHAWN [...] tablet 81 mg PO DAILY 06/14/24 08/09/24 pugtuyx-pidbkjultuhac-puautngi 250 1 tab PO Q4-6H PRN pain [...] Alcohol Substance Abuse Comment: rare alcohol use [place] Symptom Assessment Scale Pain: throat pain controlled [...] recorder, note dictated by Debora Wild APRN, [employer]ER-C ACHPN Dictated By: Debora Wild APRN DD/ 0945 Signed By: <Electronically signed by RAYSHAWN Wild> 08/09/24 [facility] Work Phone: [phone]) 659-721903-26-2025 [place] [address] Palliative Medicine Encounter Patient: Jeremie Bennett MR#: [id number] : 1940 Acct:[id number] Age/Sex: 83 / M Copies to: RAYSHAWN [...] tablet 81 mg PO DAILY 06/14/24 08/09/24 qxkwjfr-quisnloslomlo-wtlusvey 250 1 tab PO Q4-6H PRN pain [...] tabs 08/09/24 Is patient having pain?: Yes [facility] Medical History (Updated 08/09/24 @ 09:38 by Viola Adan [facility]) Pacemaker Prostate cancer surgery Neuropathy Vertigo [...] Alcohol Substance Abuse Comment: rare alcohol use [place] Symptom Assessment Scale Pain: throat pain controlled [...] recorder, note dictated by Debora Wild APRN, [employer]-C ACHPN Dictated By: Debora Wild APRN DD/ 0945 Signed By: 08/09/[address] [place], [place] 0434803-12-2025 Progress note Author Maru Ma [facility] Date/TimeMarch 2024 12:02[place] [address] Palliative Medicine Encounter Patient: Jeremie Bennett MR#: [id number] : 1940 Acct:[id number] Age/Sex: 83 / M Copies to: DO [...] tablet 81 mg PO DAILY 06/14/24 07/26/24 cbmjlav-sxdognqqatons-uahyskej 250 1 tab PO Q4-6H PRN pain [...] disease [facility]: Diagnosed with Stroke Hypertension Emphysema lung ESRD (end stage renal disease) Sister [facility]: Diagnosed with Cancer Lymphoma Social History Smoking Status: Former smoker Tobacco Type: cigarettes Substance Use Type: Alcohol Substance Abuse Comment: rare alcohol use [place] Symptom Assessment Scale See above Exam Exam [...] <Electronically signed by FELLOW Mario El> 07/26/24 7113 [facility] Work Phone: [phone]) 825-261403-12-2025 [place] [address] Palliative Medicine Encounter Patient: Jeremie Bennett MR#: [id number] : 1940 Acct:[id number] Age/Sex: 83 / M Copies to: DO [...] tablet 81 mg PO DAILY 06/14/24 07/26/24 zfyvwya-nffgvbhygahxh-afyjihed 250 1 tab PO Q4-6H PRN pain [...] QAM 07/20/24 07/26/24 tablet,extended release 24 hr [facility] Medical History (Updated 07/24/24 @ 13:52 by [...] (end stage renal disease) [facility]: Diagnosed with Cancer Lymphoma Social History Smoking Status: Former smoker Tobacco Type: cigarettes Substance Use Type: Alcohol Substance Abuse Comment: rare alcohol use [place] Symptom Assessment Scale See above Exam Exam [...] 0833 Signed By: 07/26/24 1202 07/26/24 0944 [facility]03-12-2025 Evaluation note* Diagnosis Onset Date Resolution Status Admit Date Squamous cell carcinoma of oropharynx acuteJulch 2024 8:13amCancer associated painacuteMarch 2024 8:22am NauseaacuteMarch 2024 8:22amSquamous cell carcinoma of oropharynxacute July 26, 2024 8:22am [facility] Work Phone: 1(586) 502-399503-12-2025 Evaluation note* Diagnosis Onset Date Resolution Status Admit Date Squamous cell carcinoma of oropharynx acuteJulch 2024 8:13amCancer associated painacuteMarch 2024 8:22am NauseaacuteMarch 2024 8:22amSquamous cell carcinoma of oropharynxacute July 26, 2024 8:22amCancer associated painacuteMarch 2024 7:29am ConstipationacuteMarch 2024 7:29amSquamous cell carcinoma of oropharynx acuteMarch 2024 7:29amThrush, oralacuteMarch 2024 7:29am [facility] Work Phone: 1(112) 822-627603-12-2025 Evaluation note* Diagnosis Onset Date Resolution Status Admit Date Squamous cell carcinoma of oropharynx acuteMarch 2024 8:13amCancer associated painacuteMarch 2024 8:22am NauseaacuteMarch 2024 8:22amSquamous cell carcinoma of oropharynxacute July 26, 2024 8:22amCancer associated painacuteMarch 2024 7:29am ConstipationacuteMarch 2024 7:29amSquamous cell carcinoma of oropharynx acuteMarch 2024 7:29amThrush, oralacuteMarch 2024 7:29amCancer associated painacuteMarch 2024 7:51amConstipationacuteMarch 2024 7:51amNauseaacuteMarch 2024 7:51amSquamous cell carcinoma of oropharynx acuteMarch 2024 7:51amSquamous cell carcinoma of oropharynxacuteMarch 2024 9:23am [facility] Work Phone: 1(529) 653-862203-12-2025 Evaluation note* Diagnosis Onset Date Resolution Status Admit Date Squamous cell carcinoma of oropharynx acuteMarch 2024 8:13amCancer associated painacuteMarch 2024 8:22am NauseaacuteMarch 2024 8:22amSquamous cell carcinoma of oropharynxacute July 26, 2024 8:22amCancer associated painacuteMarch 2024 7:29am ConstipationacuteMarch 2024 7:29amSquamous cell carcinoma of oropharynx acuteMarch 2024 7:29amThrush, oralacuteMarch 2024 7:29amCancer associated painacuteMarch 2024 7:51amConstipationacuteMarch 2024 7:51amNauseaacuteMarch 2024 7:51amSquamous cell carcinoma of oropharynx acuteMarch 2024 7:51amSquamous cell carcinoma of oropharynxacuteMarch 2024 9:23amCancer associated painacuteApril 2024 7:59amConstipation acuteApril 2024 7:59amNauseaacuteApril 2024 7:59amSquamous cell carcinoma of oropharynxacuteApr2024 7:59am [facility] Work Phone: 1(408) 611-918503-12-2025 Evaluation note* Diagnosis Onset Date Resolution Status Admit Date Squamous cell carcinoma of oropharynx acuteMarch 2024 8:13amCancer associated painacuteMarch 2024 8:22am NauseaacuteMarch 2024 8:22amSquamous cell carcinoma of oropharynxacute July 26, 2024 8:22amCancer associated painacuteMarch 2024 7:29am ConstipationacuteMarch 2024 7:29amSquamous cell carcinoma of oropharynx acuteMarch 2024 7:29amThrush, oralacuteMarch 2024 7:29amCancer associated painacuteMarch 2024 7:51amConstipationacuteMarch 2024 7:51amNauseaacuteMarch 2024 7:51amSquamous cell carcinoma of oropharynx acuteMarch 2024 7:51amSquamous cell carcinoma of oropharynxacuteMarch 2024 9:23amCancer associated painacuteApril 2024 7:59amConstipation acuteApril 2024 7:59amNauseaacuteApril 2024 7:59amSquamous cell carcinoma of oropharynxacuteApril 2024 7:59amFeveracuteApril 2024 7:35pmImmunosuppressionacuteApril 2024 7:35pmPneumoniaacuteApril 2024 7:35pm [facility] Work Phone: 1(860) 324-904303-12-2025 Evaluation note* Diagnosis Onset Date Resolution Status Admit Date Squamous cell carcinoma of oropharynx acuteMarch 2024 8:13amCancer associated painacuteMarch 2024 8:22am NauseaacuteMarch 2024 8:22amSquamous cell carcinoma of oropharynxacute July 26, 2024 8:22amCancer associated painacuteMarch 2024 7:29am ConstipationacuteMarch 2024 7:29amSquamous cell carcinoma of oropharynx acuteMarch 2024 7:29amThrush, oralacuteMarch 2024 7:29amCancer associated painacuteMarch 2024 7:51amConstipationacuteMarch 2024 7:51amNauseaacuteMarch 2024 7:51amSquamous cell carcinoma of oropharynx acuteMarch 2024 7:51amSquamous cell carcinoma of oropharynxacuteMarch 2024 9:23amCancer associated painacuteApril 2024 7:59amConstipation acuteApril 2024 7:59amNauseaacuteApril 2024 7:59amSquamous cell carcinoma of oropharynxacuteApril 2024 7:59amFeveracuteApril 2024 7:35pmImmunosuppressionacuteApril 2024 7:35pmPneumoniaacuteApril 2024 7:35pmSquamous cell carcinoma of oropharynxacuteApril 2024 7:35pm [facility] Work Phone: [phone] 698-261403-12-2025 Evaluation note* Diagnosis Onset Date Resolution Status Admit Date Squamous cell carcinoma of oropharynx acuteMarch 2024 8:13amCancer associated painacuteMarch 2024 8:22am NauseaacuteMarch 2024 8:22amSquamous cell carcinoma of oropharynxacute July 26, 2024 8:22amCancer associated painacuteMarch 2024 7:29am ConstipationacuteMarch 2024 7:29amSquamous cell carcinoma of oropharynx acuteMarch 2024 7:29amThrush, oralacuteMarch 2024 7:29amCancer associated painacuteMarch 2024 7:51amConstipationacuteMarch 2024 7:51amNauseaacuteMarch 2024 7:51amSquamous cell carcinoma of oropharynx acuteMarch 2024 7:51amSquamous cell carcinoma of oropharynxacuteMarch 2024 9:23amCancer associated painacuteApril 2024 7:59amConstipation acuteApril 2024 7:59amNauseaacuteApril 2024 7:59amSquamous cell carcinoma of oropharynxacuteApril 2024 7:59amSquamous cell carcinoma of oropharynxacuteApril 2024 7:35pmFeverresolvedApril 2024 7:35pm ImmunosuppressionresolvedApril 2024 7:35pmPneumoniaresolvedApril 2024 7:35pmSquamous cell carcinoma of oropharynxacuteApril 2024 9:39amTongue canceracuteApril 2024 9:14amCAD (coronary artery disease)acuteApril 2024 9:55amCentral sleep apneaacuteApril 2024 9:55amDM (diabetes mellitus) acuteApril 2024 9:55amEssential hypertensionacuteApril 2024 9:55am Obstructive sleep apneaacuteApril 2024 9:55amSquamous cell carcinoma of oropharynxacuteApril 2024 9:55am [facility] Work Phone: 1([phone]) 277-425803-12-2025 Evaluation note* Diagnosis Onset Date Resolution Status Admit Date Squamous cell carcinoma of oropharynx acuteMarch 2024 8:13amCancer associated painacuteMarch 2024 8:22am NauseaacuteMarch 2024 8:22amSquamous cell carcinoma of oropharynxacute July 26, 2024 8:22amCancer associated painacuteMarch 2024 7:29am ConstipationacuteMarch 2024 7:29amSquamous cell carcinoma of oropharynx acuteMarch 2024 7:29amThrush, oralacuteMarch 2024 7:29amCancer associated painacuteMarch 2024 7:51amConstipationacuteMarch 2024 7:51amNauseaacuteMarch 2024 7:51amSquamous cell carcinoma of oropharynx acuteMarch 2024 7:51amSquamous cell carcinoma of oropharynxacuteMarch 2024 9:23amCancer associated painacuteApril 2024 7:59amConstipation acuteApril 2024 7:59amNauseaacuteApril 2024 7:59amSquamous cell carcinoma of oropharynxacuteApril 2024 7:59amSquamous cell carcinoma of oropharynxacuteApril 2024 7:35pmFeverresolvedApril 2024 7:35pm ImmunosuppressionresolvedApril 2024 7:35pmPneumoniaresolvedApril 2024 7:35pmSquamous cell carcinoma of oropharynxacuteApril 2024 9:39amTongue canceracuteApril 2024 9:14amCAD (coronary artery disease)acuteApril 2024 9:55amCentral sleep apneaacuteApril 2024 9:55amDM (diabetes mellitus) acuteApril 2024 9:55amEssential hypertensionacuteApril 2024 9:55am Obstructive sleep apneaacuteApril 2024 9:55amSquamous cell carcinoma of oropharynxacuteApril 2024 9:55amCancer associated painacuteMay 2024 2:36pmSquamous cell carcinoma of oropharynxacuteMay 2024 2:36pmThrush, oralacuteMay 2024 2:36pm [facility] Work Phone: 1([phone]) 794-812603-05-2025 NoteUTP Cardiovascular Medicine [facility] Patient here for follow-up after his [...] a provider in 3 months. Boy Buitrago APRN-[facility]Met[facility] [place] [address] Cancer Center Note Signed Patient: Jeremie Bennett MR#: [id number] : 1940 Acct:[id number] Age/Sex: 83 / M Type: REG AMB [...] by IHC was equivocal. As per the [facility] tumor board recommendation is either [...] his week 1 of cisplatin. Labs at [facility] on 07/03/24 revealed hgb 13.3, cr is 1.0. He is having his labs here today.He had his pacemaker placed on 07/10/24 in [place]. 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 [...] positive squamous cell carcinoma. Tumor board at [facility] in [facility] and the recommended [...] with concurrent chemoradiation. Since he lives in [place] he was referred by Dr. Mary Schneider from ENT at [facility] to our medical oncology and radiation oncology at [facility]. He is referred to medical [...] his week 1 of cisplatin. Labs at [facility] on 07/03/24 revealed hgb 13.3, cr is 1.0. He is having his labs here today.He had his pacemaker placed on 07/10/24 in [place]. Rest of 14 point systems were reviewed [...] PO QAM aspirin 81 mg PO DAILY yzeffwn-sbqzjafsrtmmf-eqiqpkfn 250-250-65 mg (Excedrin Migraine) 1 tab PO [...] other concerns voiced at time of intake. [facility] Medical History Medical History (Updated 07/06/24 @ [...] disease [facility]: Diagnosed with Stroke Hypertension Emphysema lung ESRD (end stage renal disease) Sister Cancer [facility] Problem: Diagnosed with Cancer Lymphoma Social History [...] MD DD/ 0837 Signed By: 07/12/24 0920 [facility]02-24-2025 NotePACEMAKER GENERATOR REPLACEMENT PROCEDURE NOTE DATE [...] x 2 weeks Stacey Patel MD Cardiac ElectrophysiologyUnC[facility]-20-2025 Progress note Author Debora Wild [facility] HospitalNote Date/TimeFebruary 2024 11:40am [place] [address] Palliative Medicine Encounter Patient: Jeremie Bennett MR#: [id number] : 1940 Acct:[id number] Age/Sex: 83 / M Copies to: RAYSHAWN [...] tablet 81 mg PO DAILY 06/14/24 06/22/24 nwanqzn-etlgmppgizfeh-dcwpprra 250 1 tab PO Q4-6H PRN pain [...] (psyllium husk)) Is patient having pain?: No [facility] History (Updated 07/06/24 @ 09:33 by [...] Alcohol Substance Abuse Comment: rare alcohol use [place] Symptom Assessment Scale Pain: intermittent scratchy throat/ [...] mins #about Jeremie: Kaya moved her from [facility] Exam Exam General - A&O, accompanied by [...] recorder, note dictated by Debora Wild APRN, [employer]EE [employer]-C ACHPN Dictated By: Debora Wild APRN DD/ 0858 Signed By: <Electronically signed by RAYSHAWN Wild> 07/06/24 1140 [facility] Work Phone: 1(381) 457-107102-20-2025 [place] [address] Palliative Medicine Encounter Patient: Jeremie Bennett MR#: [id number] : 1940 Acct:[id number] Age/Sex: 83 / M Copies to: RAYSHAWN [...] tablet 81 mg PO DAILY 06/14/24 06/22/24 yxlpemr-fwtmdlsxbciuf-tioydbqs 250 1 tab PO Q4-6H PRN pain [...] (psyllium husk)) Is patient having pain?: No [facility] Medical History (Updated 07/06/24 @ 09:33 by [...] Alcohol Substance Abuse Comment: rare alcohol use [place] Symptom Assessment Scale Pain: intermittent scratchy throat/ [...] mins #about Jeremie: Kaya moved her from [facility] Exam Exam General - A&O, accompanied by [...] recorder, note dictated by Debora Wild APRN, COFFEE FARMER-C ROBERTPN Dictated By: Debora Wild APRN DD/ [id number] Signed By: 07/06/24 1140 [facility]02-18-2025 NoteNurse Consultation Note Reason for Visit [...] PRN, 1 refills fluticasone Nasal 0.05 mg/inh [place], See Instructions furosemide 20 mg Tab, 20 [...] influenza virus vaccine, inactivated 04/12/2023 Recorded SARSCoV2 mRNA(ydbefsnxa-vwdc-eivncu) vac 11/25/2021 Recorded SARS-CoV-2 (COVID-19) mRNA BNT-162b2 vax 03/06/2021 Recorded 2022-11-03: TPV80 influenza virus vaccine, inactivated 02/18/2021 Recorded SARS-CoV-2 (COVID-19) mRNA BNT-162b2 vax 06/27/2020 Recorded SARS-CoV-2 (COVID-19) Ad26 vaccine 06/27/2020 Recorded SARS-CoV-2 (COVID-19) mRNA BNT-162b2 vax 06/06/2020 Recorded SARS-CoV-2 (COVID-19) Ad26 vaccine 06/06/2020 Recorded influenza virus vaccine, inactivated 02/14/2020 Recorded influenza, unspecified formulation 01/22/2018 Recorded pneumococcal 13-valent vaccine 01/30/2014 [facility] NoteNurse Consultation Note Reason for [...] PRN, 1 refills fluticasone Nasal 0.05 mg/inh [place], See Instructions furosemide 20 mg Tab, 20 [...] influenza virus vaccine, inactivated 04/12/2023 Recorded SARSCoV2 mRNA(utwtgxpdo-vxgb-ocntbk) vac 11/25/2021 Recorded SARS-CoV-2 (COVID-19) mRNA BNT-162b2 vax 03/06/2021 Recorded 2022-11-03: TPV80 influenza virus vaccine, inactivated 02/18/2021 Recorded SARS-CoV-2 (COVID-19) mRNA BNT-162b2 vax 06/27/2020 Recorded SARS-CoV-2 (COVID-19) Ad26 vaccine 06/27/2020 Recorded SARS-CoV-2 (COVID-19) mRNA BNT-162b2 vax 06/06/2020 Recorded SARS-CoV-2 (COVID-19) Ad26 vaccine 06/06/2020 Recorded influenza virus vaccine, inactivated 02/14/2020 Recorded influenza, unspecified formulation 01/22/2018 Recorded pneumococcal 13-valent vaccine 01/30/2014 [facility] History of Present illness Narrative* LINWOOD Morgan - 06/23/2024 4:00 PM EST History: Patient was referred for an audiological evaluation. A baseline hearing exam was recommended prior to chemo treatment. Patient sees an ENT at [facility]. Patient is aware of hearing loss, [...] function Impressions: Results to Dr. Faustin at [facility] per patient. documented in this encounterPemiscot Memorial Health [id number] History of Present illness Narrative* Matteo Bell MD - 06/20/2024 3:15 PM EST Images from the original note were not included. Jeremie Bennett 1940 Jeremie Bennett is a 83 y.o. male presents with chief complaint of Consult (Port - Ref Dr LAMAS Tonguecancer/Having pacemaker generator change on 07-10-24 / [place] cardiology Dr Patel.) HPI: Mr. 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/27/2024 Migraine headache ([facility]/HCC) Mixed incontinence 01/27/2024 Other specified disorders of synovium, right ankle and foot Pain management Pain of upper abdomen 04/03/2022 Paronychia of great toe bilateral Peptic ulcer 04/03/2022 Personal history of other medical treatment 04/2018 body map scanned in for biopsies and trtm Prostate cancer ([facility]) Right flank pain 04/03/2022 Sinus tarsi syndrome of right foot Sleep apnea Toe pain, right Type 2 diabetes mellitus with diabetic neuropathy ([facility]/HCC) Ventricular tachycardia ([facility]) Social History Tobacco Use Smoking status: Former [...] 2005 ablation OTHER SURGICAL HISTORY 2007 sphincterotomy [place] CHOLECYSTECTOMY 02/2020 Laparoscopic Cholecystectomy - [place] IMPLANT ARTIFICIAL SPHINCTER 2017 PROSTATE 2000 TONSILLECTOMY [...] placed on the right. documented in this encounterPemiscot Memorial Health [id number] Progress note Author Talib Faustin [facility] Date/TimeJanuary 2024 11:06[facility] [place] [address] Cancer Center Note Signed Patient: Jeremie Bennett MR#: [id number] : 1940 Acct:[id number] Age/Sex: 83 / M Type: REG AMB [...] by IHC was equivocal. 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 [...] positive squamous cell carcinoma. Tumor board at [facility] in mid and the recommended [...] with concurrent chemoradiation. Since he lives in [place] he was referred by Dr. Mary Schneider from ENT at [facility] to our medical oncology and radiation oncology at [facility]. He is referred to medical [...] PO DAILY aspirin 81 mg PO DAILY xuwowhi-asedpmxoaytux-dkomkuvu 250-250-65 mg (Excedrin Migraine) 1 tab PO [...] yellow fever card, magnet, caregiver resource list, [facility] nutrition guide, and cancer rehabilitation pamphlet provided [...] to have pace maker replaced 07/10/2024 at [facility]. [facility] Medical History Medical History (Updated 06/14/24 @ [...] signed by Talib Faustin MD> 06/14/[address] [facility] Work Phone: 1(282) 476-731601-29-2025 Evaluation note* Diagnosis Onset Date Resolution Status Admit Date Squamous cell carcinoma of oropharynx acuteJanuary 2024 9:25amTongue canceracuteJanuary 2024 9:25am Squamous cell carcinoma of oropharynxacuteJanuary 2024 10:28am [facility] Work Phone: 1(121) 744-511901-29-2025 Evaluation note* Diagnosis Onset Date Resolution Status Admit Date Squamous cell carcinoma of oropharynx acuteJanuary 2024 9:25amTongue canceracuteJanuary 2024 9:25am Squamous cell carcinoma of oropharynxacuteJanuary 2024 10:28amEncounter for palliative careacuteFebruary 2024 8:00amSquamous cell carcinoma of oropharynxacuteFebruary 2024 8:00am [facility] Work Phone: 1(339) 513-731201-29-2025 Evaluation note* Diagnosis Onset Date Resolution Status Admit Date Squamous cell carcinoma of oropharynx acuteJanuary 2024 9:25amTongue canceracuteJanuary 2024 9:25am Squamous cell carcinoma of oropharynxacuteJanuary 2024 10:28amEncounter for palliative careacuteFebruary 2024 8:00amSquamous cell carcinoma of oropharynxacuteFebruary 2024 8:00amCancer associated painacuteFebruary 2024 7:36amNauseaacuteFebruary 2024 7:36amSquamous cell carcinoma of oropharynxacuteFebruary 2024 7:36amSquamous cell carcinoma of oropharynx acuteFebruary 2024 8:29amTongue canceracuteFebruary 2024 8:29am [facility] Work Phone: 1(946) 227-940501-29-2025 [facility] [place] [address] Cancer Center Note Signed Patient: Jeremie Bennett MR#: [id number] : 1940 Acct:[id number] Age/Sex: 83 / M Type: REG AMB [...] by IHC was equivocal. 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 [...] positive squamous cell carcinoma. Tumor board at [facility] in [facility] and the recommended [...] with concurrent chemoradiation. Since he lives in [place] he was referred by Dr. Mary Schneider from ENT at [facility] to our medical oncology and radiation oncology at [facility]. He is referred to medical [...] PO DAILY aspirin 81 mg PO DAILY jtohhln-borjrxotrwljo-owjqbjqt 250-250-65 mg (Excedrin Migraine) 1 tab PO [...] yellow fever card, magnet, caregiver resource list, [facility] nutrition guide, and cancer rehabilitation pamphlet provided [...] to have pace maker replaced 07/10/2024 at [facility]. PMFSH Medical History Medical History (Updated 06/14/24 @ [...] MD DD/ 0953 Signed By: 06/14/24 1106 [facility]01-20-2025 Hospital Discharge instructions* Discharge Instructions* Bob [...] questions related to your procedure: Please call [phone] between the hours of 7:00am-5:00pm Wednesday through Wednesday. Please call [phone] after 5:00pm and on weekends and holidays. In the event of an emergency call 911 or go to your nearest emergency room. documented in this [facility] Work Phone: 1(350) 369-418801-20-2025 Miscellaneous Notes* Post-Procedure Note - Juan Albright [...] PACS Procedure performed by: Juan Albright MD Risk Assessment Analyst(s): Dr. Gaby Perez MD Estimated Blood Loss [...] Albright MD, PGY-6 Interventional Radiology IR pager: [phone] NON-Urgent infection control manager weekends and after hours weekdays (5pm - 5am) IR pager: [phone] Urgent & emergent infection control manager weekends and after hours weekdays (5pm-7am) IR pager: [phone] * Pre-Procedure Note - Juan Albright MD [...] by mouth once daily., Disp: , Rfl: yffftpcnti-ziiwungvhvdac-iyqk 50-325-40 mg tablet, Take 1 tablet by [...] been discussed with the patient and/or their marketing representative. All questions answered and they agree to proceed. Juan Albright MD, PGY-6 Vascular & Interventional Radiology IR pager: [phone] NON-Urgent infection control manager weekends and after hours weekdays (5pm - 5am) IR pager: [phone] Urgent & emergent infection control manager weekends and after hours weekdays (5pm-7am) IR pager: [phone] documented in this encounterDoctors Hospital Work Phone: 1(584) 203-606001-20-2025 Note* Post-Procedure Note - Juan Albright MD [...] PACS Procedure performed by: Juan Albright MD Risk Assessment Analyst(s): Dr. Gaby Perez MD Estimated Blood Loss [...] Albright MD, PGY-6 Interventional Radiology IR pager: [phone] NON-Urgent infection control manager weekends and after hours weekdays (5pm - 5am) IR pager: [phone] Urgent & emergent infection control manager weekends and after hours weekdays (5pm-7am) IR pager: [phone] [facility] Work Phone: 1(967) 527-818601-20-2025 Note* Pre-Procedure Note - Juan Albright MD [...] by mouth once daily., Disp: , Rfl: tzowkckola-btozarpodauai-elxy 50-325-40 mg tablet, Take 1 tablet by [...] been discussed with the patient and/or their marketing representative. All questions answered and they agree to proceed. Juan Albright MD, PGY-6 Vascular & Interventional Radiology IR pager: [phone] NON-Urgent infection control manager weekends and after hours weekdays (5pm - 5am) IR pager: [phone] Urgent & emergent infection control manager weekends and after hours weekdays (5pm-7am) IR pager: [phone] [facility] Work Phone: 1(799) 988-769301-14-2025 History of Present illness Narrative* Mary Schneider MD - 05/30/2024 11:45 AM EST HEAD AND NECK SURGERY FOLLOW UP [facility] [place] Referring Provider: Dr. Ham HPI I had [...] lymph node Procedure Note: Diagnostic Flexible Laryngoscopy (78035) Indication: patient symptoms requiring evaluation of pharyngeal/laryngeal/hypopharyngeal [...] proceed with concurrent chemoradiation. He lives in [place], referrals to med onc and rad onc placed today to be setup locally at [facility]. I have also reached out to Dr Gray - He will need iris dx testing done prior to starting treatment - I will follow up the biopsy and call him with results - I will see him after treatment for cancer surveillance Mary Schneider MD 24 modifier used due to extensive discussion and coordination of cancer treatment documented in this encounterDoctors Hospital Work Phone: 1(684) 944-449612-26-2024 Hospital Discharge instructions* Discharge Instructions* Jessica Carreon [...] to your nearest ED. 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] Procedures Direct Laryngoscopy 47697 - [place] LARYNGOSCOPY W/WO TRACHEOSCOPY DX EXCEPT Bronchoscopy 46947 - [place] INCL FLUOR GDNCE DX W/CELL WASHG SPX Esophagoscopy 86752 - [place] ESOPHAGOSCOPY FLEXIBLE TRANSORAL DIAGNOSTIC Surgeons Panel 1: * Mary Schneider - Primary Panel 2: * Mary Schneider - Primary Resident/Fellow/Other Risk Assessment Analyst: Surgeons and Role: Panel 1: * Riana Vela PA-C - Resident - Assisting Staff: Baker Helper: Jameel Camargo Person: Simon Camargo Person: Reggie Anesthesia Staff: Anesthesiologist: Gabo Munoz MD Process Control Tech: Candice Aceves MD; Delvis Santana MD Procedure [...] Mary Schneider MD 05/11/2024 0822 3 : RIG BASE OF TONGUE Tissue TONGUE RESECTION SURGICAL [...] scrubbed for the entire procedure. 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] Procedures Direct Laryngoscopy 67719 - [place] LARYNGOSCOPY W/WO TRACHEOSCOPY DX EXCEPT Bronchoscopy 77473 - [place] [facility] INCL FLUOR GDNCE DX W/CELL WASHG SPX Esophagoscopy 48089 - [place] ESOPHAGOSCOPY FLEXIBLE TRANSORAL DIAGNOSTIC Surgeons Panel 1: * Mary Schneider - Primary Panel 2: * Mary Schneider - Primary Resident/Fellow/Other Risk Assessment Analyst: Surgeons and Role: Panel 1: * Riana Vela PA-C - Resident - Assisting Staff: Baker Helper: Jameel Camargo Person: Simon Camargo Person: Reggie Anesthesia Staff: Anesthesiologist: Gabo Munoz MD Process Control Tech: Candice Aceves MD; Delvis Santana MD Procedure [...] entire procedure. Mary Schneider documented in this [facility] Work Phone: 1(100) 885-144112-26-2024 History and physical note* Jessica Carreon MD [...] Schneider MD at 05/11/2024 6:34 AM EST [facility] Work Phone: 1(361) 427-202812-26-2024 History and physical note* Jessica Carreon MD [...] 05/11/2024 6:34 AM EST documented in this [facility] Work Phone: 1(428) 497-484212-24-2024 History of Present illness Narrative* Mary Guevara - 05/09/2024 10:02 AM EST Pharmacy Medication History Review Jeremie Bennett is a 83 y.o. male who is planned to be admitted for Malignant neoplasm of floor of mouth. Pharmacy called the patient prior to their scheduled procedure and reviewed the patient's zvtry-jj-opiyfeapp medications for accuracy. Medications ADDED: none Medications [...] used to complete the med history include: [facility] Pharmacy dispense history Patient interview Chart Review Care Everywhere Below are additional concerns with the patient's WILDLIFE REFUGE MANAGER list. Patient states they are taking #1 tablet of metformin XR 500mg once daily. L.F. 02/24/24 #200/100d (prescription states #1BID) Patient states they are taking #1 tablet of rosuvastatin 10mg daily. L.F. 05/31/23 #90/90d. There is no recent fill history to confirm Mary Guevara [facility] Please reach out via Secure Chat for questions documented in this encounterDoctors Hospital Work Phone: 1(423) 176-885512-10-2024 NoteUT Electrophysiology Consult Note [place] [facility] - [facility] Reason for visit: Device at [facility] HPI: Jeremie Bennett is a 83 y.o. year old with past medical history of hypertension, hyperlipidemia CAD was noted to have a pacemaker placed by Dr. Shi for ?SND which is approaching [facility]. He has previously been seen [...] Tobacco Use: Medium Risk (05/11/2024) [facility] Patient History Smoking Tobacco Use: Former Smokeless Tobacco Use: Former Passive Exposure: Not on file Alcohol Use: Not on file Financial Resource Strain: Not on file Food Insecurity: Not on file Transportation Needs: Not on file Physical Activity: Not on file Stress: Not on file Social Connections: Not on file Intimate Partner Violence: Unknown (07/08/2023) [place] Safety & Environment Fear of Current or Ex-Partner: Not on file Emotionally Abused: Not on file Physically Abused: Not on file Sexually Abused: Not on file Physically or Sexually Abused: Not on file Depression: Not at risk (04/07/2024) [facility] from [facility] PHQ-2 Patient Health Questionnaire-2 Score: 0 [...] TSH , T3 TO (more content not included)...[facility]12-02-2024 NotePatient Education Nutrition BMI for [...] for Disease Control and Prevention: cdc.gov ??? [place] Heart Association: heart.org ??? National Heart, Lung, and Blood [place]: nhlbi.nih.gov This information is not intended to replace advice given to you by your health care provider. Make sure you discuss any questions you have with your health care provider. Document Revised: 01/21/2023 Document Reviewed: 01/14/2023 [employer] Patient Education ? 2023 [facility] 04-07-2024 History of Present illness Narrative* Mary Schneider MD - 04/07/2024 10:45 AM EST HEAD AND NECK SURGERY CONSULT [facility] Referring Provider: Dr. 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 Will follow up biopsy and call him with the results Mary Schneider MD documented in this [facility] Work Phone: 1(361) 379-206111-13-2024 History of Present illness Narrative* Luc Ham MD - 03/29/2024 10:20 AM EST Subjective Patient ID: Jeremie Bennett is a 83 y.o. 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[facility]/HCC) 01/27/2024 BMI 29.0-29.9,adult 01/27/2024 Cardiac dysrhythmia [...] neuropathy associated with type 2 diabetes mellitus ([facility]/HCC) 04/14/2023 Diabetic peripheral neuropathy associated with type 2 diabetes mellitus (CMS/HCC) 01/27/2024 Diverticulosis 01/27/2024 Dysphagia 04/14/2023 Essential hypertension (CMS/HCC) 04/03/2022 Excessive daytime sleepiness 01/27/2024 FH: stomach cancer 04/14/2023 Chronic GERD 01/27/2024 GERD with apnea 01/27/2024 Glaucoma ([facility]/HCC) 04/03/2022 Hemorrhoids 01/27/2024 History of colon polyps 01/27/2024 History of malignant neoplasm of prostate 04/03/2022 [place] (hard of hearing) 04/03/2022 Hypercholesterolemia ([facility]/HCC) 04/03/2022 Hyperlipidemia (CMS/HCC) 04/03/2022 Insomnia 04/03/2022 [...] joints of right foot 01/27/2024 Pancreatic cyst ([facility]/HCC) 04/14/2023 Paresthesia of both hands 01/27/2024 Edema of lower extremity 04/26/2019 Polyneuropathy associated with underlying disease ([facility]/HCC) 01/27/2024 Presence of cardiac pacemaker 03/14/2021 Prostate cancer ([facility]) 04/03/2022 Prostatitis 04/14/2023 Skin cancer 04/03/2022 Swollen lymph nodes 04/14/2023 Thoracic aortic ectasia ([facility]) 01/27/2024 Vitamin D deficiency 04/03/2022 Resolved Ambulatory Problems Diagnosis Date Noted Bloating 01/27/2024 Cellulitis of toe of left foot 01/27/2024 Cellulitis of toe of right foot 01/27/2024 Chest wall pain 04/03/2022 Gallstones 04/03/2022 COVID-19 11/10/2022 Entrapment of left ulnar nerve 01/27/2024 Entrapment of right ulnar nerve 01/27/2024 Fecal soiling 04/03/2022 Fecal urgency 04/14/2023 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[facility]) 01/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 Lower abdominal pain 04/03/2022 Pain [...] Diverticulitis GERD (gastroesophageal reflux disease) HTN (hypertension) ([facility]) Migraine headache ([facility]) Pain management Paronychia of great toe Personal history of other medical treatment 04/2018 Sinus tarsi syndrome of right foot Sleep apnea Toe pain, right Type 2 diabetes mellitus with diabetic neuropathy ([facility]) Past Surgical History: Procedure Laterality Date CARDIAC CATHETERIZATION 08/30/2019 CATARACT EXTRACTION Bilateral CERVICAL FUSION 2016 C3-C4-C5 CHOLECYSTECTOMY HERNIA REPAIR 2002 INSERT / REPLACE / REMOVE PACEMAKER 2015 pacemaker insertion OTHER SURGICAL HISTORY 2004 ablation OTHER SURGICAL HISTORY 2007 sphincterotomy [place] CHOLECYSTECTOMY 02/2020 Laparoscopic Cholecystectomy - [place] IMPLANT ARTIFICIAL SPHINCTER 2017 PROSTATE 2000 TONSILLECTOMY 1970 Allergies Allergen Reactions Niacin Itching and Unknown Wound Dressing Adhesive Unknown Current Outpatient Medications on File Prior to Visit Medication Sig Dispense Refill amLODIPine (Norvasc) 5 MG tablet Take 5 mg by mouth in the morning. aspirin 81 MG EC tablet Take 81 mg by mouth in the morning. nzxcodcfsf-levlovahnbtco-vhrylvnr 50-325-40 MG tablet Take 1 tablet by [...] completed for surveillance exams. 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 Is this a therapy: No A Diagnostic radioactive procedure has taken place, with no further precautions necessary other than routine body substance precautions. More information regarding radiation safety can be found usingthis link: [email or web address] 20Diagnostic%20Nuclear%20Medicine%[email or web address] SIGNATURE: RT Rodriguez (R) PATIENT NAME: Jeremie Bennett DATE: March 27, 2024 TIME: 10:14 AM PAGER/CONTACT #: documented in this encounterWright-Pat[facility] Center11-11-2024 NoteHNO ID: [id number] Author: KANDI RODRIGUEZ RT (R) Service: ? 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 Is this a therapy: No A Diagnostic radioactive procedure has taken place, with no further precautions necessary other than routine body substance precautions. More information regarding radiation safety can be found using this link: [email or web address]%[email or web address]%[email or web address] SIGNATURE: RT Jennifer(R) PATIENT NAME: Jeremie Bennett DATE: March 27, 2024 TIME: 10:14 AM PAGER/CONTACT #:[facility]10-23-2024 History of Present illness Narrative* [...] neuropathy associated with type 2 diabetes mellitus ([facility]/HCC) 04/14/2023 Diabetic peripheral neuropathy associated with type 2 diabetes mellitus (CMS/HCC) 01/27/2024 Diverticulosis 01/27/2024 Dysphagia 04/14/2023 Essential hypertension (CMS/HCC) 04/03/2022 Excessive daytime sleepiness 01/27/2024 FH: stomach cancer 04/14/2023 Chronic GERD 01/27/2024 GERD with apnea 01/27/2024 Glaucoma ([facility]/HCC) 04/03/2022 Hemorrhoids 01/27/2024 History of colon polyps 01/27/2024 History of malignant neoplasm of prostate 04/03/2022 [place] (hard of hearing) 04/03/2022 Hypercholesterolemia ([facility]/HCC) 04/03/2022 Hyperlipidemia (CMS/HCC) 04/03/2022 Insomnia 04/03/2022 [...] joints of right foot 01/27/2024 Pancreatic cyst ([facility]/HCC) 04/14/2023 Paresthesia of both hands 01/27/2024 Edema of lower extremity 04/26/2019 Polyneuropathy associated with underlying disease ([facility]/HCC) 01/27/2024 Presence of cardiac pacemaker 03/14/2021 Prostate cancer (CMS/[facility]) 04/03/2022 Prostatitis 04/14/2023 Skin cancer 04/03/2022 Swollen lymph nodes 04/14/2023 Thoracic aortic ectasia ([facility]) 01/27/2024 Vitamin D deficiency 04/03/2022 Resolved Ambulatory Problems Diagnosis Date Noted Bloating 01/27/2024 Cellulitis of toe of left foot 01/27/2024 Cellulitis of toe of right foot 01/27/2024 Chest wall pain 04/03/2022 Gallstones 04/03/2022 COVID-19 11/10/2022 Entrapment of left ulnar nerve 01/27/2024 Entrapment of right ulnar nerve 01/27/2024 Fecal soiling 04/03/2022 Fecal urgency 04/14/2023 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[facility]) 01/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 Lower abdominal pain 04/03/2022 Pain [...] Diverticulitis GERD (gastroesophageal reflux disease) HTN (hypertension) (CMS/[facility]) Migraine headache ([facility]) Pain management Paronychia of great toe [...] 2004 ablation OTHER SURGICAL HISTORY 2007 sphincterotomy [place] CHOLECYSTECTOMY 02/2020 Laparoscopic Cholecystectomy - [place] IMPLANT ARTIFICIAL SPHINCTER 2017 PROSTATE 2000 TONSILLECTOMY 1970 Allergies Allergen Reactions Niacin Itching and Unknown Wound Dressing Adhesive Unknown Current Outpatient Medications on File Prior to Visit Medication Sig Dispense Refill amLODIPine (Norvasc) 5 MG tablet Take 5 mg by mouth in the morning. aspirin 81 MG EC tablet Take 81 mg by mouth in the morning. dqtsmtztmk-ytqhikzmkjses-cqddlvcf 50-325-40 MG tablet Take 1 tablet by [...] suspicious for the primary documented in this encounterNOMS [id number] Telephone encounter Note* Telephone Encounter - Antoinette Ham - 03/06/2024 11:18 AM EDT Pt is scheduled for 03/08/[address] Ham. [facility] [id number] Miscellaneous Notes* Telephone Encounter - Antoinette Ham - 03/06/2024 11:18 AM EDT Pt is scheduled for 03/08/[address] Ham. * Telephone Encounter - Luc Ham MD - 03/06/2024 10:18 AM EDT Move up pt's appt documented in this encounterPemiscot Memorial Health [id number] Telephone encounter Note* Telephone Encounter - Luc Ham MD - 03/06/2024 10:18 AM EDT Move up pt's appt [facility] Work Phone: [phone]) 746-985210-02-2024 History of Present illness Narrative* Luc Ham [...] Diagnosis Date Noted Arteriosclerosis of coronary artery ([facility]) 01/20/2019 Arthritis of ankle, right 01/27/2024 [...] Colon polyp 01/27/2024 Type 2 diabetes mellitus ([facility]) 01/27/2024 Type 2 diabetes mellitus without complication, without long-term current use of insulin ([facility]) 04/14/2023 Diabetic autonomic neuropathy associated with type 2 diabetes mellitus ([facility]) 04/14/2023 Diabetic peripheral neuropathy associated with type 2 diabetes mellitus ([facility]/HCC) 01/27/2024 Diverticulosis 01/27/2024 Dysphagia 04/14/2023 Essential hypertension ([facility]) 04/03/2022 Excessive daytime sleepiness 01/27/2024 FH: stomach cancer 04/14/2023 Chronic GERD 01/27/2024 GERD with apnea 01/27/2024 Glaucoma ([facility]) 04/03/2022 Hemorrhoids 01/27/2024 History of colon polyps 01/27/2024 History of malignant neoplasm of prostate 04/03/2022 [place] (hard of hearing) 04/03/2022 Hypercholesterolemia (CMS/[facility]) 04/03/2022 Hyperlipidemia (CMS/[facility]) 04/03/2022 Insomnia 04/03/2022 Internal derangement of right knee 01/27/2024 Irregular bowel habits 04/14/2023 Lump on neck 04/14/2023 Migraines (CMS/[facility]) 04/03/2022 Aortic valve regurgitation 04/26/2019 Mitral valve regurgitation 04/26/2019 Neuropathy 04/03/2022 NPH (normal pressure hydrocephalus) ([facility]) 04/03/2022 Central sleep apnea 01/27/2024 Obstructive [...] reflux disease) HTN (hypertension) (CMS/HCC) Migraine headache (CMS/[facility]) Pain management Paronychia of great toe [...] 2005 ablation OTHER SURGICAL HISTORY 2007 sphincterotomy [place] CHOLECYSTECTOMY 02/2020 Laparoscopic Cholecystectomy - [place] IMPLANT ARTIFICIAL SPHINCTER 2017 PROSTATE 2000 TONSILLECTOMY 1970 Allergies Allergen Reactions Niacin Itching and Unknown Wound Dressing Adhesive Unknown Current Outpatient Medications on File Prior to Visit Medication Sig Dispense Refill amLODIPine (Norvasc) 5 MG tablet Take 5 mg by mouth in the morning. aspirin 81 MG EC tablet Take 81 mg by mouth in the morning. 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 Robins in [place] -he is following up with them next [...] Oral, Daily aspirin 81 mg, Oral, Daily czvltokncr-vixzmocehlilq-sgvktwys 50-325-40 MG tablet 1 tablet, Oral, Every [...] Daily, Do not crush or chew. Lancets (Cocrystal Discoveryuch ultrasoft) lancets 1 each, Other, As needed, [...] 2005 ablation OTHER SURGICAL HISTORY 2007 sphincterotomy [place] CHOLECYSTECTOMY 02/2020 Laparoscopic Cholecystectomy - [place] IMPLANT ARTIFICIAL SPHINCTER 2017 PROSTATE 2000 TONSILLECTOMY [...] 2+ 2+ Patellar 2+ 2+ Coordination Right: Eqholx-bc-vaty normal.Left: Hjgzzu-iw-bnsj normal. Gait Casual gait is normal including [...] up in 6 months documented in this encounterPemiscot Memorial Health [id number] Telephone encounter Note* Telephone Encounter - Carlitos Beckman - 02/07/2024 9:29 AM EDT Images from the original note were not included. IPMN surveillance. Review OSH images and advise please [facility] Pancreatography 11/09/2023 [facility]09-23-2024 Miscellaneous Notes* Telephone Encounter - Carlitos Beckman - 02/07/2024 9:29 AM EDT Images from the original note were not included. IPMN surveillance. Review OSH images and advise please [facility] Pancreatography 11/09/2023 * Telephone Encounter [...] and it was completed in 12/2023 at [facility]. Our office will request results for Dr. Pringle's review. Follow up will be determined upon Dr. Pringle's review of results. documented in this encounterWright-Pat[facility]09-[facility] Telephone encounter Note * Telephone Encounter - Carlitos Beckman - 02/04/2024 9:03 AM EDT Surveillance imaging completed at OSH for IPMN surveillance. [facility]09-18-[facility]24 Telephone encounter Note* Telephone Encounter - Carlitos Beckman - 02/02/2024 8:57 AM EDT Call to patient to discuss plan of care. Surveillance imaging needed to evaluate pancreas cyst. Dx: IPMN Per Dr. Vaishali Pringle- recommended repeat MRI in 1 year Last imaging 02/17/2024 Orders placed: MRI Pancreas w/wo IVCON Patient's local GI ordered MRI and it was completed in 12/2023 at [facility]. Our office will request results for Dr. Pringle's review. Follow up will be determined upon Dr. Pringle's review of results. [facility]09-[facility] History of Present illness Narrative* Luc Ham [...] Colon polyp 01/27/2024 Type 2 diabetes mellitus ([facility]/HCC) 01/27/2024 Type 2 diabetes mellitus without [...] with apnea 01/27/2024 Glaucoma (CMS/[facility]) 04/03/2022 Hemorrhoids 01/27/2024 History of colon polyps 01/27/2024 History of malignant neoplasm of prostate 04/03/2022 [place] (hard of hearing) 04/03/2022 Hypercholesterolemia (CMS/HCC) 04/03/2022 Hyperlipidemia (CMS/HCC) 04/03/2022 Insomnia 04/03/2022 Internal derangement of right knee 01/27/2024 Irregular bowel habits 04/14/2023 Lump on neck 04/14/2023 Migraines ([facility]/HCC) 04/03/2022 Aortic valve regurgitation 04/26/2019 Mitral valve regurgitation 04/26/2019 Neuropathy 04/03/2022 NPH (normal pressure hydrocephalus) ([facility]) 04/03/2022 Central sleep apnea 01/27/2024 Obstructive [...] soiling 04/03/2022 Fecal urgency 04/14/2023 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) 01/27/2024 Lower abdominal pain 04/03/2022 Pain of [...] reflux disease) HTN (hypertension) (CMS/HCC) Migraine headache ([facility]) Pain management Paronychia of great toe Personal history of other medical treatment 04/2018 Sinus tarsi syndrome of right foot Sleep apnea Toe pain, right Type 2 diabetes mellitus with diabetic neuropathy (CMS/[facility]) Past Surgical History: Procedure Laterality Date CARDIAC CATHETERIZATION 08/30/2019 CATARACT EXTRACTION Bilateral CERVICAL FUSION 2016 C3-C4-C5 HERNIA REPAIR 2002 INSERT / REPLACE / REMOVE PACEMAKER 2015 pacemaker insertion OTHER SURGICAL HISTORY 2005 ablation OTHER SURGICAL HISTORY 2007 sphincterotomy [place] CHOLECYSTECTOMY 02/2020 Laparoscopic Cholecystectomy - [place] IMPLANT ARTIFICIAL SPHINCTER 2017 PROSTATE 2000 TONSILLECTOMY 1970 Allergies Allergen Reactions Niacin Itching and Unknown Wound Dressing Adhesive Unknown Current Outpatient Medications on File Prior to Visit Medication Sig Dispense Refill amLODIPine (Norvasc) 5 MG tablet Take 5 mg by mouth in the morning. aspirin 81 MG EC tablet Take 81 mg by mouth in the morning. noanflcvqy-djkehdzjutwhg-vavukrut 50-325-40 MG tablet Take 1 tablet by [...] actual location and nature documented in this encounterPemiscot Memorial Health [id number] Hospital Discharge instructions Patient Education 09/17/2023 09:05:07 [...] and nury. Vegetables Deep-fried vegetables. Citizen [place] fries. Any vegetables prepared with added fat. [...] provider. Document Revised: 11/11/2020 Document Reviewed: 11/11/2020 [employer] Patient Education 2022 [employer]. Follow Up Care 06/25/2023 12:06:59 With:Sammi CASON, Jaiden Douglas [facility], [facility] Address: [address] [place], [place] [address], [address] [place] [address]- [phone] When:3 months [facility] 01-15-2024 Evaluation note* Encounter [...] however patient could not tolerate wearing this mask.He prefers the nasal mask, however he sleeps with his mouth open and does not tolerate the chin strap b/c it's too hot. I recommended that he try the nasal with mouth tape and/or go forward with a mask fitting to find a better fitting FFM. I will re-evaluate his ISIDRO in 2 months. A prescription was sent to the [employer] for new supplies throughout the year. He was encouraged to continue to use his machine nightly, throughout the entire night as this does provide clinical benefit. Call if problems. May,entral apnea (ICD-10 - R06.81)Recent polysomnography was done for documentation and treatment [...] changes and we will continue to monitor. May,OtherCall if any questions or problems. Patient is advised to work on healthy diet choices and appropriate servings, weight control, regular exercise as directed, and reduce fat intake. Use machine regularly, and keep up with mask changes as needed. Call if problems with mask toleration, increased sleepiness, or poor response to treatment. . [employer] Other 01-09-2024 Hospital Discharge instructions Patient Education [...] and nury. Vegetables Deep-fried vegetables. Citizen [place] fries. Any vegetables prepared with added fat. [...] provider. Document Revised: 11/11/2020 Document Reviewed: 11/11/2020 [employer] Patient Education 2022 [employer]. Follow Up Care 02/25/2023 14:06:51 With:Anjali Ruby CNP Address: When:1 month [facility] 11-20-2023 Miscellaneous Notes* Telephone Encounter - Lolly Dumont - 04/05/2023 9:44 AM EST Received records from [facility]. Reports for imaging listed below scanned. Images pushed through 09/27/2019 US Right Upper Quad 03/31/2020 CT ABD/PEL US Right Upper Quad [facility] MRI Abdomen 02/22/2023 Soft Tissue Head & Neck Received many misc. labs & ER reports Operative Note & pathology from Laparoscopic Cholecystectomy Patient seen 04/01, please review, thank you! documented in this encounterW[facility]11-[facility] Nurse Note* Debby Holland MA - 04/01/2023 [...] Temperature: No Drains: No documented in this encounterWright-[facility]11-16-2023 History of Present illness Narrative* [...] way of the shared medical record or [employer]al services. Jeremie Bennett is a 82 year [...] Level: 4 - Moderate documented in this encounterWright-[facility]11-16-2023 NoteHNO ID: [id number] Author: Vaishali Pringle MD Service: ? Author [...] Pringle MD Medical De (more content not included)...[facility]10-25-2023 Hospital Discharge instructions Patient Education [...] Follow these instructions at home: Medicines Take trij-mxg-rtuhbux and prescription medicines only as told by [...] Watch your condition for any changes. Take zebc-bjc-hfyuetd and prescription medicines only as told by [...] provider. Document Revised: 06/21/2020 Document Reviewed: 09/11/2019 [employer] Patient Education 2022 [employer]. Follow Up Care 03/09/2023 09:58:32 With:Anjali Ruby CNP Address: When:1 to 2 weeks Comments:Following EGD. [facility] 10-12-2023 Hospital Discharge instructions [...] Follow these instructions at home: Medicines Take vbud-fya-zacbtxk and prescription medicines only as told by your health care provider. If you were prescribed an antibiotic medicine, take it as told by your health care provider. Do notstop taking the antibiotic even if you start to feel better. Eating and drinking Make any diet changes as told by your health care provider. Work with a diet and business analytics specialist (dietitian) to create an eating plan [...] provider. Document Revised: 12/21/2020 Document Reviewed: 12/21/2020 Elsevier Patient Education 2022 [employer]. Follow Up Care 02/22/2023 16:17:47 With:Anjali Ruby CNP Address: When:3 months [facility] 09-15-2023 Evaluation note* Encounter [...] months. A prescription was sent to the [employer] for new supplies throughout the year. He was encouraged to continue to use his machine nightly, throughout the entire night as this does provide clinical benefit. Call if problems. Jan,entral apnea (ICD-10 - R06.81)Recent polysomnography was done for documentation and treatment [...] changes and we will continue to monitor. Jan,OtherCall if any questions or problems. Patient is advised to work on healthy diet choices and appropriate servings, weight control, regular exercise as directed, and reduce fat intake. Use machine regularly, and keep up with mask changes as needed. Call if problems with mask toleration, increased sleepiness, or poor response to treatment. . [facility] Other 08-29-2023 Hospital Discharge instructions Patient Education [...] including vitamins, herbs, eye drops, creams, and ongd-wls-nvtxuhl medicines. Any problems you or family members [...] provider tells you to take them. Taking prcq-vws-hjneopq medicines, vitamins, herbs, and supplements. General instructions [...] provider. Document Revised: 04/27/2022 Document Reviewed: 12/24/2021 [employer] Patient Education 2022 [employer]. Follow Up Care 12/28/2022 08:53:11 With:Anjali Ruby CNP Address: When:1 to 2 weeks Comments:Following EGD/Colonoscopy. [facility] 05-30-2023 Evaluation note* Encounter Date Diagnosis Assessment Notes Treatment Notes Treatment Clinical Notes September, Obstructive sleep apnea (ICD-10 - G47.33) Fortunately the patient is using and benefiting from treatment. He has previously documented severeobstructive sleep apnea with an AHI of almost [...] agreeable and will f/u after study results. September,OtherCall if any questions or problems. Patient is advised to work on healthy diet choices and appropriate servings, weight control, regular exercise as directed, and reduce fat intake. Use machine regularly, and keep up with mask changes as needed. Call if problems with mask toleration, increased sleepiness, or poor response to treatment. . [facility] Other 05-09-2023 Hospital Discharge instructions Patient Education [...] managed at home with rest, fluids, and aboo-wca-mcfxfbo medicines. Serious symptoms may be treated in [...] water are not available, use alcohol-based hand chief lending officer. Make sure that all people in your [...] managed at home with rest, fluids, and swjc-kqn-nzocpxw medicines. This information is not intended to replace advice given to you by your health care provider. Make sure you discuss any questions you have with your health care provider. Document Revised: 04/23/2022 Document Reviewed: 04/23/2022 [employer] Patient Education 2022 [employer]. Follow Up Care 09/22/2022 16:24:11 With:Demetrius Cooper Address: [address] [place] [address]- Business (2) When:09/25/2022 18:12:09 [facility]05-09-2023 Evaluation note* Encounter Date Diagnosis Assessment Notes Treatment Notes Treatment Clinical Notes September, Acute cough (ICD-10 - R05.1) September,OVID-19 (ICD-10 - U07.1)Discharge Instructions for COVID-19 (Suspected or Confirmed ) material was printed Drink plenty fluids, get plenty of rest. Take Tylenol as needed for aches or pains. Continue home medications as prescribed. You must quarantine for 5 days after the onset of your symptoms of COVID. Follow-up with your family physician if no improvement in 2 to 3 days. [facility] Other 04-11-2023 NoteCONSULTATION CONSULTATION DATE: 08/25/2022 TO: [...] our patients to inform us about any eckr-yid-sbhdzgq medications or herbal remedies/nutritional supplements/alternative remedies. 2. [...] with their primary care provider.[facility] [id number] Evaluation note * Encounter Date Diagnosis Assessment [...] he continue to have central events, titration mayprove necessary. 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 His downloads have continued to show breakthrough central events. From available data, I cannot rule out the possibility of overaggressive treatment contributing to centralevents. 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 Handouts provided. Sedatingagents may contribute to daytime drowsiness, particularly in the morning, and side effects of theseagents tend to worsen as we age 14Jul,Excessive daytime sleepiness (ICD-10 - G47.19)His excessive daytime sleepiness could come from a number of factors. Suboptimal control of sleep ap nai is certainly one of them, but and medication side effect may contribute as well. He will work with his prescribing providers to see if lower doses of gabapentin may still control his neuropathic pain without adding to daytime drowsiness. If he is able to sleep with less Tylenol PM this may alsoreduce tiredness symptoms. We will continue to follow and reevaluate this complex set of interacting contributors to fatigue Jul,Essential hypertension (ICD-10 - I10)Control of sleep apnea will frequently have a positive effect on blood pressure control, and may add itionally reduce blood pressure lability. 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 He reduced to 500 mg twice daily without significant change in pain. 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 Central apneas are associated with congestive heart failure, and there is a bidirectional relationship between central sleep apnea and CHF. 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 Fortunately these are currently controlled after ablation and he does have a defibrillator in place [facility] Other 03-09-2023 NoteCONSULTATION CONSULTATION DATE: 07/23/2022 HISTORY [...] to hold the Plavix pre-procedure.[facility] [id number] NotePROCEDURE: XR ANKLE RT MIN 3 VIEWS COMPARISON: 08/22/2020 HISTORY: Pain of right ankle joint FINDINGS: BONES:No acute fracture or dislocation. Moderate enthesopathic spurring of the calcaneus. Degenerative changes with bone fragments along the inferior medial malleolus, stable. SOFT TISSUES:Negative. No visible soft tissue swelling. EFFUSION:None visible. OTHER: Negative. IMPRESSION: Stable degenerative changes Electronically authenticated by: ERWIN FALOCN Date: 2022-07-22 10:37[facility] [id number] NotePROCEDURE: XR FOOT RT MIN 3 VIEWS [...] CLARISSA GARCIA Date: 2022-06-16 15:25[facility] [id number] Hospital Discharge instructions Patient Education 05/26/2022 13:46:25 [...] [facility] [address], [place] [address]- Business (1) When: Unknown Comments:Office will call to schedule follow up [facility]08-11-2022 NoteCONSULTATION PROCEDURE DATE: 12/25/2021 PRE AND [...] followed up in the clinic.[facility] 12-25-2021 NoteCONSULTATION CONSULTATION DATE: 12/25/2021 This [...] recently seen at an urgent care in [place] for left thumb pain and joint swelling. [...] months' time unless otherwise indicated.[facility] [id number] Evaluation note* Encounter Date Diagnosis Assessment Notes Treatment Notes Treatment Clinical Notes Nov, Thumb pain, left (ICD-10 - M79.6 45) Use RICE therapy as discussed: Rest, Ice Compression, Elevate. Apply ice to affected area 3-4 timesdaily (Do not place ice source directly on skin, must cover with towel-like material). Take medication as directed. Rest and elevate sore extremity as much as possible. Do not take OTC medication pain relievers if prescription of medication given in office today. Contact office if no improvement ofsymptoms and we will help you get into a specialist. [facility] Other Chiip complaint+Reason for visit Narrative* Chief Complaint N54.2 Self Referral [facility] Work Phone: Chigi complaint+Reason for visit Narrative* Chief Complaint N54.2 Self Referral [id number] [id number] m54.2 [facility] Work Phone: Chihi complaint+Reason for visit Narrative* Chief Complaint N54.2 Self Referral [id number] [id number] m54.2 isidro, 31-90 [facility] Work Phone: Discharge summary Author Zeke Brennan [facility] HospitalNote Date/TimeApril 2024 2:14pm[place] [address] Discharge Summary Signed Patient: Jeremie Bennett MR#: [id number] : 1940 Acct:[id number] Age/Sex: 83 / M Adm Date: 5 Loc: Room: [address] [place] [address]: Zeke Brennan MD Copies to: [...] was discharged home stable condition the [facility] with few more days of oral [...] Continuity of Care Document Health Concerns: A [facility] screening has identified you as FRAIL [...] Strong:Four Ways to Beat the Frailty Risk [email or web address] fyzx-bu-qhtz-nfj-lcerlhz-ykqr Exam Physical Exam Vital Signs: Temp Pulse [...] % (Auto) 75.8, Lymph % (Auto) 9.0, [place] % (Auto) 13.6, Eos % (Auto) 1.0, Baso % (Auto) 0.6, Nucleat RBC Rel Count 0.1, Neut # (Auto) 4.7, Lymph # (Auto) 0.6 L, [place] # (Auto) 0.8, Eos # (Auto) 0.1, [...] % (Auto) 77.0, Lymph % (Auto) 10.5, [place] % (Auto) 11.3, Eos % (Auto) 0.7, Baso % (Auto) 0.5, Nucleat RBC Rel Count 0.2, Neut # (Auto) 5.7, Lymph # (Auto) 0.8 L, [place] # (Auto) 0.8, Eos # (Auto) 0.1, Baso # (Auto) 0.0, Monocyte Dist Width 23.19 H, ESR 42 H, PT 12.9, INR 1.1, Lactic Acid 0.8, C-Reactive Prot, Quant Cancelled 08/20/24 12:20: PHA Creatinine Clear 58.71, Sodium 136, Potassium 3.7, Chloride 104, Carbon Wzrpmaw30.4, Anion Gap 10.3, BUN 16, Creatinine 0.85, Est GFR (CKD- EPI) > 60.0, Glucose 106 H, Calcium 8.4 L, Total Bilirubin 0.6, AST 18, ALT 17, Alkaline Phosphatase 66, C-Reactive Prot, Quant 3.3 H, Total Protein 5.9 L, Albumin 3.4 L, Globulin 2.5, Albumin/Globulin Ratio 1.4 Documented By: Zeke Brennan MD 08/21/24 1407 Signed By: <Electronically signed by Zeke Brennan MD> 08/21/24 1414 [facility] Work Phone: Evaluation + Plan note No data available for this section [facility] Future Appointments Appointment Date:11/23/2022 09:00:00 AM Scheduled Provider:Demetrius Cooper MD Location:[facility] Appointment Type: Open [facility] Future Appointments Appointment Date:12/15/2022 12:00:00 PM Scheduled Provider:Anjali Ruby CNP Location:[facility] Appointment Type:[facility] Patient Appointment Date:05/31/2023 09:00:00 AM Scheduled Provider:Demetrius Cooper MD Location:[facility] Appointment Type: Open Appointment Date:11/08/2023 01:00:00 PM Scheduled Provider: Location:[facility] Appointment Type:FM Medicare Wellness Subsequent Future Scheduled Tests Laboratory* HgbA1c 11/23/22 * CBC w/ Auto Diff 11/23/22 * Comprehensive Metabolic Panel 11/23/22 * Lipid Panel 11/23/22 [facility] Future Appointments Appointment Date:05/31/2023 09:00:00 AM Scheduled Provider:Demetrius Cooper MD Location:[facility] Appointment Type: Open Appointment Date:11/08/2023 01:00:00 PM Scheduled Provider: Location:[facility] Appointment Type:FM Medicare Wellness Subsequent Future Scheduled Tests Laboratory* HgbA1c 11/23/22 * CBC w/ Auto Diff 11/23/22 * Comprehensive Metabolic Panel 11/23/22 * Lipid Panel 11/23/22 [facility] Future Appointments Appointment Date:05/31/2023 09:00:00 AM Scheduled Provider:Demetrius Cooper MD Location:[facility] Appointment Type: Open Appointment Date:11/08/2023 01:00:00 PM Scheduled Provider: Location:[facility] Appointment Type: Medicare Wellness Subsequent Future Scheduled Tests Laboratory* HgbA1c 11/23/22 * CBC w/ Auto Diff 11/23/22 * Comprehensive Metabolic Panel 11/23/22 * Lipid Panel 11/23/22 Radiology* CT Abdomen w/ Contrast 01/12/23 [facility] Evaluation + Plan note Future Appointments Appointment Date:05/03/2023 01:40:00 PM Scheduled Provider:Anjali Ruby CNP Location:[facility] Appointment Type:[facility] Follow Up Appointment Date:05/31/2023 09:00:00 AM Scheduled Provider:Demetrius Cooper MD Location:[facility] Appointment Type: Open Appointment Date:11/08/2023 01:00:00 PM Scheduled Provider: Location:[facility] Appointment Type:FM Medicare Wellness Subsequent Future Scheduled Tests Laboratory* HgbA1c 11/23/22 * CBC w/ Auto Diff 11/23/22 * Comprehensive Metabolic Panel 11/23/22 * Lipid Panel 11/23/22 [facility] evaluation + Plan note Future Appointments Appointment Date:05/03/2023 01:40:00 PM Scheduled Provider:Anjali Ruby CNP Location:[facility] Appointment Type:[facility] Follow Up Appointment Date:05/31/2023 10:00:00 AM Scheduled Provider:Demetrius Cooper MD Location:[facility] Appointment Type: Open Appointment Date:11/08/2023 01:00:00 PM Scheduled Provider: Location:[facility] Appointment Type:FM Medicare Wellness Subsequent Future Scheduled Tests Laboratory* HgbA1c 11/23/22 * CBC w/ Auto Diff 11/23/22 * Comprehensive Metabolic Panel 11/23/22 * Lipid Panel 11/23/22 [facility] evaluation + Plan note Future Appointments Appointment Date:05/03/2023 01:40:00 PM Scheduled Provider:Anjali Ruby CNP Location:[facility] Appointment Type:[facility] Follow Up Appointment Date:05/31/2023 10:00:00 AM Scheduled Provider:Demetrius Cooper MD Location:[facility] Appointment Type: Open Appointment Date:11/08/2023 01:00:00 PM Scheduled Provider: Location:[facility] Appointment Type: Medicare Wellness Subsequent Diagnostic Tests Pending * O & P Exam, Routine 03/10/23 * Giardia lamblia, Direct Detection EIA 03/10/23 Future Scheduled Tests Laboratory* HgbA1c 11/23/22 * CBC w/ Auto Diff 11/23/22 * Comprehensive Metabolic Panel 11/23/22 * Lipid Panel 11/23/22 [facility] Future Appointments Appointment Date:05/31/2023 10:00:00 AM Scheduled Provider:Demetrius Cooper MD Location:[facility] Appointment Type: Open Appointment Date:06/25/2023 01:20:00 PM Scheduled Provider:Anjali Ruby CNP Location:[facility] Appointment Type:[facility] Follow Up Appointment Date:11/08/2023 01:00:00 PM Scheduled Provider: Location:[facility] Appointment Type:FM Medicare Wellness Subsequent Future Scheduled Tests Laboratory* HgbA1c 11/23/22 * CBC w/ Auto Diff 11/23/22 * Comprehensive Metabolic Panel 11/23/22 * Lipid Panel 11/23/22 [facility] Evaluation + Plan note Future Appointments Appointment Date:10/21/2023 03:00:00 PM Scheduled Provider:Inez Henderson MD Location:[facility] Appointment Type:[facility] Follow Up Appointment Date:11/08/2023 01:00:00 PM Scheduled Provider: Location:[facility] Appointment Type: Medicare Wellness Subsequent Appointment Date:11/29/2023 10:15:00 AM Scheduled Provider:Demetrius Cooper MD Location:[facility] Appointment Type: Open Future Scheduled Tests Laboratory* U Protein/Creat Ratio 05/31/23 * HgbA1c 11/23/22 * HgbA1c 05/31/23 * Microalbumin Level Urine 05/31/23 * CBC w/ Auto Diff 11/23/22 * Comprehensive Metabolic Panel 11/23/22 * Lipid Panel 11/23/22 [facility] Evaluation + Plan note Future Appointments Appointment Date:10/21/2023 03:00:00 PM Scheduled Provider:Inez Henderson MD Location:[facility] Appointment Type:BAD Follow Up Appointment Date:11/08/2023 01:00:00 PM Scheduled Provider: Location:[facility] Appointment Type: Medicare Wellness Subsequent Appointment Date:11/29/2023 10:15:00 AM Scheduled Provider:Demetrius Cooper MD Location:[facility] Appointment Type: Open Diagnostic Tests Pending * Celiac Disease Comprehensive 09/17/23 Future Scheduled Tests Laboratory* U Protein/Creat Ratio 05/31/23 * HgbA1c 11/23/22 * HgbA1c 05/31/23 * Microalbumin Level Urine 05/31/23 * CBC w/ Auto Diff 11/23/22 * Comprehensive Metabolic Panel 11/23/22 * Lipid Panel 11/23/22 [facility] Future Appointments Appointment Date:11/08/2023 01:00:00 PM Scheduled Provider: Location:[facility] Appointment Type: Medicare Wellness Subsequent Appointment Date:11/29/2023 10:15:00 AM Scheduled Provider:Demetrius Cooper MD Location:[facility] Appointment Type: Open Appointment Date:03/23/2024 02:45:00 PM Scheduled Provider:Inez Henderson MD Location:[facility] Appointment Type:[facility] Follow Up Future Scheduled Tests Laboratory* U Protein/Creat Ratio 05/31/23 * HgbA1c 11/23/22 * HgbA1c 05/31/23 * Microalbumin Level Urine 05/31/23 * CBC w/ Auto Diff 11/23/22 * Comprehensive Metabolic Panel 11/23/22 * Lipid Panel 11/23/22 Radiology* MRI Cholangiogram Pancreatography (mrcp) 10/21/23 [facility] Evaluation + Plan note Future Appointments Appointment Date:11/29/2023 10:15:00 AM Scheduled Provider:Demetrius Cooper MD Location:[facility] Appointment Type: Open Appointment Date:03/23/2024 02:45:00 PM Scheduled Provider:Inez Henderson MD Location:[facility] Appointment Type:[facility] Follow Up Appointment Date:11/06/2024 02:30:00 PM Scheduled Provider: Location:[facility] Appointment Type: Medicare Wellness Subsequent Future Scheduled Tests Laboratory* U Protein/Creat Ratio 11/24/23 * U Protein/Creat Ratio 05/31/23 * HgbA1c 11/30/23 * HgbA1c 11/23/22 * HgbA1c 05/31/23 * Microalbumin Level Urine 11/24/23 * Microalbumin Level Urine 05/31/23 * CBC w/ Auto Diff 11/23/22 * Comprehensive Metabolic Panel 11/23/22 * Lipid Panel 11/08/23 * Lipid Panel 11/23/22 [facility] Future Appointments Appointment Date:04/17/2024 10:00:00 AM Scheduled Provider:Demetrius Cooper MD Location:[facility] Appointment Type: Open Appointment Date:11/06/2024 02:30:00 PM Scheduled Provider: Location:[facility] Appointment Type: Medicare Wellness Subsequent Future Scheduled Tests Laboratory* U Protein/Creat Ratio 11/24/23 * U Protein/Creat Ratio 05/31/23 * HgbA1c 11/30/23 * HgbA1c 05/31/23 * Microalbumin Level Urine 11/24/23 * Microalbumin Level Urine 05/31/23 * Lipid Panel 11/08/23 Radiology* MRI Cholangiogram Pancreatography (mrcp) 03/23/24 [facility] Evaluation + Plan note Future Appointments Appointment Date:11/06/2024 02:30:00 PM Scheduled Provider: Location:[facility] Appointment Type: Medicare Wellness Subsequent Appointment Date:11/06/2024 03:30:00 PM Scheduled Provider:Demetrius Cooper MD Location:[facility] Appointment Type: Open Future Scheduled Tests Laboratory* U Protein/Creat Ratio 11/24/23 * U Protein/Creat Ratio 05/31/23 * HgbA1c 11/30/23 * HgbA1c 05/31/23 * Microalbumin Level Urine 11/24/23 * Microalbumin Level Urine 05/31/23 * Lipid Panel 11/08/23 [facility] evaluation + Plan note Future Appointments Appointment Date:11/21/2024 02:30:00 PM Scheduled Provider: Location:[facility] Appointment Type: Medicare Wellness Subsequent Appointment Date:11/21/2024 03:20:00 PM Scheduled Provider:Demetrius Cooper MD Location:[facility] Appointment Type: Open Diagnostic Tests Pending * Urine Culture 08/30/24 Future Scheduled Tests Laboratory* U Protein/Creat Ratio 11/24/23 * HgbA1c 11/30/23 * Microalbumin Level Urine 11/24/23 * Lipid Panel 11/08/23 [facility] evalunhgll noteNo Assessments Information Available [facility] assessment information available [facility] Work Phone: evaluvcjue note* Diagnosis 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 [facility] Diagnosis 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 [facility]* Diagnosis Onset Date Resolution Status Viral URI with cough noneactiveImpacted cerumen, bilateralnoneactiveCentral sleep apneaacuteDM (diabetes mellitus)acuteEssential hypertensionacuteObstructive sleep apneaacute [facility] Work Phone: evaluation note* Diagnosis 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 [facility]* Diagnosis Migraine without aura and without status migrainosus, not intractable (CMS/HCC)- Primary Vertigo Dizziness and giddiness Lumbar radiculopathy Thoracic or lumbosacral neuritis or radiculitis, unspecified Neck pain Cervicalgia Degenerative disc disease, cervical Polyneuropathy Unspecified hereditary and idiopathic peripheral neuropathy documented in this encounter [facility]* Diagnosis LAD (lymphadenopathy) of right cervical region- Primary documented in this encounter [facility]* Diagnosis 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 [facility] Diagnosis Oral ulcer- Primary Other and unspecified diseases of the oral soft tissues 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) documented in this encounter [facility] HealthcareEvaluation note* Diagnosis 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 Ulcer of gingiva documented in this encounter [facility]Evaluation note* Diagnosis Malignant neoplasm [...] mouth, part unspecified documented in this encounter [facility] Work Phone: Evaluation note* Diagnosis Parotid mass- Primary Swelling, mass, or lump in head and neck documented in this encounter [facility] HealthcareEvaluation note* Diagnosis Malignant neoplasm [...] stated as uncontrolled documented in this encounter [facility] Work Phone: Evaluation note* 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 head, face, and neck documented in this encounter [facility] Work Phone: Evaluation note* Diagnosis Enlarged submental lymph node documented in this encounter [facility] Work Phone: Evaluation note* Diagnosis Poor [...] Dysphagia, unspecified type documented in this encounter [facility] Work Phone: Evaluation note* Diagnosis Esophageal dysphagia- Primary Dysphagia, pharyngoesophageal phase [facility]* Diagnosis Vertigo- Primary Dizziness and giddiness Lumbar radiculopathy Thoracic or lumbosacral neuritis or radiculitis, unspecified Chronic bilateral low back pain, unspecified whether sciatica present Degenerative disc disease, cervical Migraine without aura and without status migrainosus, not intractable ([facility]) Polyneuropathy Unspecified hereditary and idiopathic peripheral neuropathy [...] risk for malnutrition documented in this encounter [facility] Work Phone: Evaluation note* Diagnosis Esophageal dysphagia- Primary Dysphagia, pharyngoesophageal phase Carcinoma of oropharynx (HCC) Malignant neoplasm of oropharynx, unspecified site [facility]* Diagnosis Esophageal dysphagia- Primary Dysphagia, pharyngoesophageal phase documented in this encounter [facility] HealthcareHistory general Narrative - Reported* Type Description Date Medical History DM (diabetes mellitus) Medical HistoryHTN (hypertension)Medical HistoryHypercholesteremiaMedical HistoryVitamin D deficiency, unspecifiedMedical HistoryCAD (coronary artery disease)Surgical HistoryNeck SurgerySurgical HistorycholecystectomySurgical Historycardiac stentSurgical HistoryprostatectomySurgical Historyhernia Hospitalization Historysee above [facility] Other History general Narrative - Reported* Type Description Date Medical History DM (diabetes mellitus) Medical HistoryHTN (hypertension)Medical HistoryHypercholesteremiaMedical HistoryVitamin D deficiency, unspecifiedMedical HistoryCAD (coronary artery disease)Medical HistoryOSAMedical Historyventricular tachycardiaMedical History diabetic neuropathySurgical HistoryNeck SurgerySurgical Historycholecystectomy Surgical Historycardiac stentSurgical HistoryprostatectomySurgical Historyhernia Hospitalization Historysee above [facility] Other History of Present illness Narrative* Veena [...] this visit: Esophageal dysphagia Carcinoma of oropharynx ([facility]) Jeremie is doing well, I'll see him PRN documented in this encounter[facility] HealthcareHistory of Present illness Narrative * Veena [...] 2005 ablation OTHER SURGICAL HISTORY 2007 sphincterotomy [place] CHOLECYSTECTOMY 02/2020 Laparoscopic Cholecystectomy - [place] IMPLANT ARTIFICIAL SPHINCTER 2017 PROSTATE 2000 TONSILLECTOMY 1970 US GUIDED BIOPSY LYMPH NODE SUPERFICIAL 06/05/2024 US GUIDED BIOPSY LYMPH NODE SUPERFICIAL 06/05/2024 FAMILY HISTORY Family History Problem Relation Name Age of Onset Hypertension Mother Estee Bennett Heart disease Mother Estee Bennett Stroke Mother Estee Bennett Asthma Mother Esteegail Bennett Kidney disease Mother Esteegail Bennett Migraines Mother Estee Bennett Other (prostate [...] prior to the visit. [facility] Dis[facility] instructions No data available for this section [facility] Dis[facility] instructionsAmbulatory Orders* Referral to Palliative Medicine Time Frame: 06/14/24, Location: None Selected * RISE Order Location: None Selected [facility] Work Phone: Progress note No data available for this section [facility] Author Talib Faustin [facility] HospitalNote Date/TimeJanuary 2024 11:06[facility] [place] [address] Cancer Center Note Signed Patient: Jeremie Bennett MR#: [id number] : 1940 Acct:[id number] Age/Sex: 83 / M Type: REG AMB [...] by IHC was equivocal. 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 [...] positive squamous cell carcinoma. Tumor board at [facility] in mid and the recommended [...] with concurrent chemoradiation. Since he lives in [place] he was referred by Dr. Mary Schneider from ENT at [facility] to our medical oncology and radiation oncology at [facility]. He is referred to medical [...] PO DAILY aspirin 81 mg PO DAILY kuvsqmn-qagoqxquxideo-rvxmyjge 250-250-65 mg (Excedrin Migraine) 1 tab PO [...] yellow fever card, magnet, caregiver resource list, [facility] nutrition guide, and cancer rehabilitation pamphlet provided [...] to have pace maker replaced 07/10/2024 at [facility]. [facility] Medical History Medical History (Updated 06/14/24 @ [...] signed by Talib Faustin MD> 06/14/[address] [facility] Work Phone: Progress note Author Talib Faustin [facility] HospitalNote Date/TimeFebruary 2024 9:20am [facility] [place] [address] Cancer Center Note Signed Patient: Jeremie Bennett MR#: [id number] : 1940 Acct:[id number] Age/Sex: 83 / M Type: REG AMB [...] by IHC was equivocal. As per the [facility] tumor board recommendation is either [...] his week 1 of cisplatin. Labs at [facility] on 07/03/24 revealed hgb 13.3, cr is 1.0. He is having his labs here today.He had his pacemaker placed on 07/10/24 in [place]. 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 [...] positive squamous cell carcinoma. Tumor board at [facility] in [facility] and the recommended [...] with concurrent chemoradiation. Since he lives in [place] he was referred by Dr. Mary Schneider from ENT at [facility] to our medical oncology and radiation oncology at [facility]. He is referred to medical [...] his week 1 of cisplatin. Labs at [facility] on 07/03/24 revealed hgb 13.3, cr is 1.0. He is having his labs here today.He had his pacemaker placed on 07/10/24 in [place]. Rest of 14 point systems were reviewed [...] PO QAM aspirin 81 mg PO DAILY hornbpg-ilenupluzsmdz-nhfceidf 250-250-65 mg (Excedrin Migraine) 1 tab PO [...] other concerns voiced at time of intake. [facility] Medical History Medical History (Updated 07/06/24 @ [...] disease [facility]: Diagnosed with Stroke Hypertension Emphysema lung ESRD (end stage renal disease) Sister Cancer [facility]: Diagnosed with Cancer Lymphoma Social [...] signed by Talib Faustin MD> 07/12/[address] [facility] Work Phone: Progress note Author Zeke Brennan [facility] HospitalNote Date/TimeApril 2024 2:[place]pmMaria [place] [id number] Hospitalist Progress Note Signed Patient: Jeremie Bennett MR#: [id number] : 1940 Acct:[id number] Age/Sex: 83 / M Adm Date: 5 Loc: Room: [address] [place] [address] Type: ADM IN Attending Dr: Zeke Brennan [...] care and confirmed it with the re sident/student/[employer]. This patient presented to the emergency department [...] spray 08/21/24 09:00 08/21/24 09:02 Fluticasone Propionate Underwood 120 Underwood/16 Gm Bottle INTRANASAL 08/21/25 08:59 2 spray [...] signed by DO KASSY Lambert> 08/21/24 1152 [facility] Work Phone: Progress note Author Talib Faustin [facility] HospitalNote Date/TimeJuly 2024 10:26[facility] [place] [address] Cancer Center Note Signed Patient: Jeremie Bennett MR#: [id number] : 1940 Acct:[id number] Age/Sex: 84 / M Type: REG AMB [...] by IHC was equivocal. As per the [facility] tumor board recommendation is either [...] his week 1 of cisplatin. Labs at [facility] on 07/03/24 revealed hgb 13.3, cr is 1.0. He is having his labs here today.He had his pacemaker placed on 07/10/24 in [place]. 07/20/2024 he came in complaining of increase bilateral ears ringing which she hasas a baseline but it increased compared with before after cycle or week 2 of theweekly cisplatin. He denies any hearingdeficiency however. He has some sore throat from the radiation. He was given oxycodone and Magic swizzle by the radiation oncology. 07/26/24: He is here for week 2 of Decetaxel after receiving 2 weeks of cisplatin changed to Docetaxel due toincreased tinnitus on Cisplatin. He continues to have [...] silvadine and Dombero for the neck skin givenby Rad onc. He also uses magic swizzle for the raw throat. Labs are unremarkable except mild worsening anemia hemoglobin down to 10.4 on 08/21/2024. W BC and platelets are normal. Absolute neutrophil count is normal. 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 [...] positive squamous cell carcinoma. Tumor board at [facility] in [facility] and the recommended [...] with concurrent chemoradiation. Since he lives in [place] he was referred by Dr. Mary Schneider from ENT at [facility] to our medical oncology and radiation oncology at [facility]. He is referred to medical [...] his week 1 of cisplatin. Labs at [facility] on 07/03/24 revealed hgb 13.3, cr is 1.0. He is having his labs here today.He had his pacemaker placed on 07/10/24 in [place]. 07/20/2024 he came in complaining of increase bilateral ears ringing which she hasas a baseline but it increased compared with before after cycle or week 2 of theweekly cisplatin. He denies any hearingdeficiency however. He has some sore throat from the radiation. He was given oxycodone and Magic swizzle by the radiation oncology. 07/26/24: He is here for week 2 of Decetaxel after receiving 2 weeks of cisplatin changed to Docetaxel due toincreased tinnitus on Cisplatin. He continues to have [...] silvadine and Dombero for the neck skin givenby Rad onc. He also uses magic swizzle for the raw throat. Labs are unremarkable except mild worsening anemia hemoglobin down to 10.4 on 08/21/2024. W BC and platelets are normal. Absolute neutrophil count is normal. The potassium is 3.3 otherwise unremarkableCMP except for magnesium of 1.8 and calcium [...] NO concerns voiced at time of intake. [facility] Medical History Medical History Squamous cell carcinoma [...] Mother Heart disease History of stroke [facility] Problem: Diagnosed with Stroke Hypertension Emphysema lung ESRD (end stage renal disease) Sister Cancer [facility] Problem: Diagnosed with Cancer Lymphoma Social History [...] signed by Talib Faustin MD> 11/23/[address] [facility] Work Phone: Progress note Author Becky Crouch [facility] HospitalNote Date/TimeAugust 2024 1:25pm [facility] [place] [address] Cancer Center Note Signed Patient: Jeremie Bennett MR#: [id number] : 1940 Acct:[id number] Age/Sex: 84 / M Type: DEP AMB [...] chemoradiation using IMRT and daily IGRT to adose of 69.96 Haque in 33 fractions to the gross disease withapproximately 50-52 Haque to the elective neck. Returns to clinic today with posttreatment PET from November 13, 2024 which is negative. We are pleased with his progress and he continues to have no issues with oral intake. The G-tube was placed by surgery here at [facility] and patient is hopeful to [...] an enlarged right level 2Aand 2B lymph nodes.Measuring 1.5 cm level 2B with a prominent [...] Extended-Release) Allergy (Unknown, Verified 11/23/24 10:00) hives [facility] Medical History Medical History (Updated 11/23/24 @ [...] <Electronically signed by RAYSHAWN Crouch> 12/26/[address] [facility] Work Phone: Reason for referral (narrative) Referred by: Anjali Ruby CNP [facility] Reason for referral (narrative)No reason for referral information availableSt. 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] Procedures WY GLOSSECTOMY HEMIGLOSSECTOMY W[place] LARYNGOSCOPY W/WO TRACHEOSCOPY DX EXCEPT WY BRNCHSC INCL FLUOR GDNCE DX W/CELL WASHG SPX WY ESOPHAGOSCOPY FLEXIBLE TRANSORAL DIAGNOSTIC WY TONSILLECTOMY PRIMARY/SECONDARY AGE 12/> GLOSSECTOMY, ROBOT-ASSISTED, ORAL APPROACH Direct Laryngoscopy Bronchoscopy Esophagoscopy [place] [address] [id number] Phone: tel: fax: [facility] [place] [address] [place] [address] fax: Referral IDStatusReasonStart DateExpiration DateVisits RequestedVisits [id number] [facility] Work Phone: Reason for visit Narrative* Imaging (Routine) - AuthorizedSpecialtyDiagnoses / ProceduresReferred By ContactReferred To ContactRadiology Diagnoses Enlarged submental lymph node Procedures US guided biopsy lymph node superficial [place] [address] [place] [address] Phone: tel: fax: Referral IDStatusReasonStart DateExpiration DateVisits RequestedVisits [id number] Perform Procedure [facility] Work Phone: Summary Purpose Family History No Family History Records Found Relationship Condition Age at Onset Recorded Date/T olivia father Glaucoma Unknown DeceasedUnknownNot SpecifiedDeceasedUnknownHistory of strokeUnknownFamily history of emphysemaUnknownHypertensionUnknownHeart diseaseUnknownsister Malignant neoplasmUnknown Relationship Condition Age at Onset Recorded Date/T olivia father Glaucoma Unknown DeceasedUnknownmotherDeceasedUnknownHistory of strokeUnknownFamily history of emphysemaUnknownHypertensionUnknownHeart diseaseUnknownsisterMalignant neoplasm Unknown Relationship Condition Age at Onset Recorded Date/T olivia father Unknown GlaucomaUnknownmotherHeart diseaseUnknownDeceasedUnknownHistory of strokeUnknown HypertensionUnknownPulmonary emphysemaUnknownEnd-stage renal diseaseUnknown sisterDeceasedUnknownMalignant neoplasmUnknownLymphomaUnknown Advance Directives No Advanced Directives Records Found Advance Directive Response Recorded Date/ Time Advance Directives No August 13, 10:26am Advance Directive Response Recorded Date/ Time Advance Directives No August 19 10:47am Advance Directive Response Recorded Date/ Time Advance Directives No August 19 9:47am TypeDate RecordedPatient RepresentativeExplanationHealthcare Power of Atty 05/11/2024Living Will05/11/2024TypeDate RecordedPatient Ammonia Box Operator ExplanationHealthcare Power of Atty107/12/2023Living Will05/11/2024 Advance Directive Response Recorded Date/ Time Advance [...] isidro-3months Chief Complaint Cough, congestion ISIDRO/ 3 MONTHReason for VisitViral URI with cough Impacted cerumen, bilateral Central sleep apnea DM (diabetes mellitus) Essential hypertension Obstructive sleep apnea Chief Complaint Unknown Chief Complaint Admit Date NEW-Mal Miguel base of tongue June 14, 2024 9:25am Mal Miguel base of tongue June 14 9:26am NEW tongue cancer June 14, 2024 1 0:28am Reason for Visit Admit Date Squamous cell carcinoma of oropharynx [facility] 2024 9:25am Tongue cancer June 14, 2024 9 :25am Squamous cell carcinoma of oropharynx [facility] 2024 10:28am Chief Complaint Admit Date [...] Admit Date Squamous cell carcinoma of oropharynx [facility] 2024 9:25am Tongue cancer June 14, 2024 9 :25am Squamous cell carcinoma of oropharynx [facility] 2024 10:28am Encounter for palliative care June 182024 8:00am Squamous cell carcinoma of oropharynx [facility] 2024 8:00am Chief Complaint Admit [...] Admit Date Squamous cell carcinoma of oropharynx [facility] 2024 9:25am Tongue cancer June 14, 2024 9 :25am Squamous cell carcinoma of oropharynx [facility] 2024 10:28am Encounter for palliative care June 182024 8:00am Squamous cell carcinoma of oropharynx [facility] 2024 8:00am Cancer associated pain July 12 7:36am Nausea July 12, 2024 7:36am Squamous cell carcinoma of oropharynx [facility] 2024 7:36am Squamous cell carcinoma of oropharynx [facility] 2024 8:29am Tongue cancer July 12, 2024 [...] 1 :44pm Chief Complaint Admit Date NEW-Mal Mgiuel base of tongue June 14, 2024 9:25am [...] Admit Date Squamous cell carcinoma of oropharynx [facility] 2024 8:13am Cancer associated pain July 26, 2024 8:22am Nausea July 26, 2024 8:2 2am Squamous cell carcinoma of oropharynx [facility] 2024 8:22am Chief Complaint Admit Date [...] Admit Date Squamous cell carcinoma of oropharynx [facility] 2024 8:13am Cancer associated pain July 26, 2024 8:22am Nausea July 26, 2024 8:2 2am Squamous cell carcinoma of oropharynx [facility] 2024 8:22am Cancer associated pain August 02, 2024 7:29am Constipation August 02, 2024 7:2 9am Squamous cell carcinoma of oropharynx [facility] 2024 7:29am Thrush, oral August 02, [...] Admit Date Squamous cell carcinoma of oropharynx [facility] 2024 8:13am Cancer associated pain July 26, 2024 8:22am Nausea July 26, 2024 8:2 2am Squamous cell carcinoma of oropharynx [facility] 2024 8:22am Cancer associated pain August 02, 2024 7:29am Constipation August 02, 2024 7:2 9am Squamous cell carcinoma of oropharynx [facility] 2024 7:29am Thrush, oral August 02, 2024 7:2 9am Cancer associated pain August 09, 2024 7:51am Constipation August 09, 2024 7:5 1am Nausea August 09, 2024 7:5 1am Squamous cell carcinoma of oropharynx [facility] 2024 7:51am Squamous cell carcinoma of oropharynx [facility] 2024 9:23am Chief Complaint Admit Date [...] Admit Date Squamous cell carcinoma of oropharynx [facility] 2024 8:13am Cancer associated pain July 26, 2024 8:22am Nausea July 26, 2024 8:2 2am Squamous cell carcinoma of oropharynx [facility] 2024 8:22am Cancer associated pain August 02, 2024 7:29am Constipation August 02, 2024 7:2 9am Squamous cell carcinoma of oropharynx [facility] 2024 7:29am Thrush, oral August 02, 2024 7:2 9am Cancer associated pain August 09, 2024 7:51am Constipation August 09, 2024 7:5 1am Nausea August 09, 2024 7:5 1am Squamous cell carcinoma of oropharynx [facility] 2024 7:51am Squamous cell carcinoma of oropharynx [facility] 2024 9:23am Cancer associated pain August 16, 2024 7 :59am Constipation August 16, 2024 7:59 am Nausea August 16, 2024 7:59 am Squamous cell carcinoma of oropharynx [facility] 2024 7:59am Chief Complaint Admit Date [...] Admit Date Squamous cell carcinoma of oropharynx [facility] 2024 8:13am Cancer associated pain July 26, 2024 8:22am Nausea July 26, 2024 8:2 2am Squamous cell carcinoma of oropharynx [facility] 2024 8:22am Cancer associated pain August 02, 2024 7:29am Constipation August 02, 2024 7:2 9am Squamous cell carcinoma of oropharynx [facility] 2024 7:29am Thrush, oral August 02, 2024 7:2 9am Cancer associated pain August 09, 2024 7:51am Constipation August 09, 2024 7:5 1am Nausea August 09, 2024 7:5 1am Squamous cell carcinoma of oropharynx [facility] 2024 7:51am Squamous cell carcinoma of oropharynx [facility] 2024 9:23am Cancer associated pain August 16, 2024 7 :59am Constipation August 16, 2024 7:59 am Nausea August 16, 2024 7:59 am Squamous cell carcinoma of oropharynx [facility] 2024 7:59am Fever August 20, 2024 7:35 [...] Admit Date Squamous cell carcinoma of oropharynx [facility] 2024 8:13am Cancer associated pain July 26, 2024 8:22am Nausea July 26, 2024 8:2 2am Squamous cell carcinoma of oropharynx [facility] 2024 8:22am Cancer associated pain August 02, 2024 7:29am Constipation August 02, 2024 7:2 9am Squamous cell carcinoma of oropharynx [facility] 2024 7:29am Thrush, oral August 02, 2024 7:2 9am Cancer associated pain August 09, 2024 7:51am Constipation August 09, 2024 7:5 1am Nausea August 09, 2024 7:5 1am Squamous cell carcinoma of oropharynx [facility] 2024 7:51am Squamous cell carcinoma of oropharynx [facility] 2024 9:23am Cancer associated pain August [...] fever August 20, 2024 7:35 pm fever Nicole 7th, 2025 10:5 3am fever August 21, 2024 11:5 6am Follow Up 2 Weeks August 23, 2024 9:39 am Follow Up 1 Month, H+N September 07, 2024 9:14am Mal Miguel base of tongue September 07, 2024 9:36am isidro/annual visit September 11, 2024 9:5 5am Reason for Visit Admit Date Squamous cell carcinoma of oropharynx [facility] 2024 8:13am Cancer associated pain July 26, 2024 8:22am Nausea July 26, 2024 8:2 2am Squamous cell carcinoma of oropharynx [facility] 2024 8:22am Cancer associated pain August 02, 2024 7:29am Constipation August 02, 2024 7:2 9am Squamous cell carcinoma of oropharynx [facility] 2024 7:29am Thrush, oral August 02, 2024 7:2 9am Cancer associated pain August 09, 2024 7:51am Constipation August 09, 2024 7:5 1am Nausea August 09, 2024 7:5 1am Squamous cell carcinoma of oropharynx [facility] 2024 7:51am Squamous cell carcinoma of oropharynx [facility] 2024 9:23am Cancer associated pain August [...] Admit Date Squamous cell carcinoma of oropharynx [facility] 2024 8:13am Cancer associated pain July 26, 2024 8:22am Nausea July 26, 2024 8:2 2am Squamous cell carcinoma of oropharynx [facility] 2024 8:22am Cancer associated pain August 02, 2024 7:29am Constipation August 02, 2024 7:2 9am Squamous cell carcinoma of oropharynx [facility] 2024 7:29am Thrush, oral August 02, 2024 7:2 9am Cancer associated pain August 09, 2024 7:51am Constipation August 09, 2024 7:5 1am Nausea August 09, 2024 7:5 1am Squamous cell carcinoma of oropharynx [facility] 2024 7:51am Squamous cell carcinoma of oropharynx [facility] 2024 9:23am Cancer associated pain August [...] 2: 36pm Squamous cell carcinoma of oropharynx [facility] 2024 2:36pm Thrush, oral September 26, [...] carcinoma of oropharynx [facility] 2024 12:32pm Chief Complaint Admit Date Follow Up 3 Months, H+N February 22 9:41am Mal Miguel base of tongue February 22, 2025 9:42am Reason for Visit Admit Date Squamous cell carcinoma of oropharynx [facility] 2024 12:32pm Squamous cell carcinoma of oropharynx [facility] 2024 9:41am Assessments No Assessments Information Available Reason for Referral SpecialtyDiagnoses / ProceduresReferred By ContactReferred To Contact Diagnoses Migraine without aura and without status migrainosus, not intractable (CMS/HCC) Missy Westfall PA [address] [place] [address] Referral IDStatusReasonStthayer DateExpiration DateVisits RequestedVisits [id number] / ProceduresReferred By ContactReferred To ContactMR IMAGING Diagnoses IPMN (intraductal papillary mucinous neoplasm) Procedures MRI 3D POST PROCESSING 3D RENDERING W/INTERP&POSTPROC [place] [address] [id number] Mr Imaging [place] [address] Referral IDStatusReasonStthayer DateExpiration DateVisits RequestedVisits [id number] Request Auto-Generated Referral [id number] / ProceduresReferred By ContactReferred To Contact IMAGING Diagnoses IPMN (intraductal papillary mucinous neoplasm) Procedures MRI PANC/TRISH WO/W IVCON MRI ABDOMEN W/O & W/[place] [address] [place] [address] Mr Imaging [place] [address] Referral IDStatusReasonStart DateExpiration DateVisits RequestedVisits [id number] Request Auto-Generated Referral Additional Source Comments (unrecognized sect ion and [...] section and content) DATE CREATED AUTHOR 02/08/2020 [facility] DATE CREATED AUTHOR AUTHOR'S ORGANIZ ATION 09/30/2022 [facility] DATE CREATED AUTHOR AUTHOR'S ORGANIZ ATION 02/04/2023 [facility] DATE CREATED AUTHOR AUTHOR'S ORGANIZ ATION 04/01/2024 [facility] DATE CREATED AUTHOR AUTHOR'S ORGANIZ ATION 04/19/2024 [facility] DATE CREATED AUTHOR AUTHOR'S ORGANIZ ATION 07/05/2024 [facility] DATE CREATED AUTHOR AUTHOR'S ORGANIZ ATION 07/21/2024 [facility] DATE CREATED AUTHOR AUTHOR'S ORGANIZ ATION 07/22/2024 [facility] DATE CREATED AUTHOR AUTHOR'S ORGANIZ ATION 09/03/2024 [facility] DATE CREATED AUTHOR AUTHOR'S ORGANIZ ATION 10/15/2024 [facility] DATE CREATED AUTHOR AUTHOR'S ORGANIZ ATION 10/31/2024 [facility] DATE CREATED AUTHOR AUTHOR'S ORGANIZ ATION 12/01/2024 [facility] DATE CREATED AUTHOR AUTHOR'S ORGANIZ ATION 12/27/[address] [facility] DATE CREATED AUTHOR AUTHOR'S ORGANIZ ATION 01/20/2025 [facility] DATE CREATED AUTHOR AUTHOR'S ORGANIZ ATION 02/17/2025 [facility] DATE CREATED AUTHOR AUTHOR'S ORGANIZ ATION 02/25/2025 [facility] REASON FOR VISIT (unrecogniz ed section and content) ReasonCommentsConsultPEHReasonCommentsReceived Outside Medical RecordsReason CommentsBack PainDizzinessNeck PainReasonCommentsParotid massParotid massReason CommentsMRI AppointmentCare Coordinator - OtherReasonCommentsParotid MassFollow up FNA 02/29/24 TBHReasonCommentsRadiology NMReasonCommentsMouth LesionsFollow up PET [facility] 03/27/24ReasonCommentsNew Patient VisitOral cancer. ReasonCommentsNeck MassUltrasound 01/20/24. Lump right side of neck below ear. Onset about 6 wk agoReasonCommentsPost-opHead and neckReasonCommentsConsultPort - Ref Dr LAMAS Tongue cancerHaving pacemaker generator change on 07-10-24 w/ [facility] Patel.SpecialtyDiagnoses / ProceduresReferred By ContactReferred To ContactGeneral Surgery Diagnoses Malignant neoplasm of oropharynx, unspecified (CMS/HCC) Procedures [place] UNLISTED EVALUATION AND MANAGEMENT SERVICE Dennis Gray MD [address] [place] [address] Phone: tel: fax: Stacey Hinojosa, [place] [address] Phone: tel: fax: Referral IDStatusReasonStart DateExpiration DateVisits RequestedVisits [id number]/[id number]/[id number]-edQcbyetEvbtvojd urgent need for gastrostomy xrwjAwlslwHinkojfn8tw pow gastrostomy tube placement ReasonCommentsGastrostomy tube removalSpecialtyDiagnoses / ProceduresReferred By ContactReferred To ContactGeneral Surgery Diagnoses Malignant neoplasm of oropharynx, unspecified (HCC) Procedures [place] UNLISTED EVALUATION AND MANAGEMENT SERVICE Gelacio Paredes MD Phone: tel: fax: Veena Ross, [address] [place] [address] Phone: tel: fax: Referral IDStatusReasonStart DateExpiration DateVisits RequestedVisits [id number]/12/20252/[id number] of gastrostomy tube Patient Care team informatio n (unrecognized section and content) Team Status: Active Member Role Status Dates Demetrius Cooper MD Primary Care Provider Active Team Status: Inactive Member Role Status Dates Demetrius Cooper MD Primary Care Provider Active Start: June 22, 2024 End: June 22jerome Melo MDAttending ProviderActiveStart: June 22, 2024 End: June 22, 2024 Team Status: Inactive Member Role Status Dates Demetrius Cooper MD Primary Care Provider Active Start: July 03, 2024 End: July 03jerome Melo MDAttending ProviderActiveStart: July 03, 2024 End: July 03, 2024 Team Status: Active Member Role Status Dates Demetrius Cooper MD Primary Care Provider Active Start: July 05, 2024 Luisito Harleyerring ProviderActiveStart: July 05, 2024 Saúl Medina Provider, Other ProviderActiveStart: July 05, 2024 Team Status: Inactive Member Role Status Dates Demetrius Cooper MD Primary Care Provider Active Start: July 06, 2024 End: July 06, 2024Stefanie Engle ProviderActiveStart: July 06, 2024 End: July 06, 2024 Team Status: Active Member Role Status Dates Demetrius Cooper MD Primary Care Provider Active Start: July 06, 2024 Stefanie Engle Provider, Other ProviderActiveStart: July 06, 2024 Team Status: Active Member Role Status Tati Cooper MD Primary Care Provider Active Start: July 06, 2024 HUMBERTO Harleyeferring ProviderActiveStart: July 06, 2024 Dennis Gray MDOther ProviderActiveStart: July 06, 2024 Soufian Almahameed , MDAttending ProviderActiveStart: July 06, 2024 Team Status: Active Member Role Status Dates Demetrius Cooper MD Primary Care Provider Active Start: July 10, 2024 Mary Schneider MDReferring ProviderActiveStart: July 10, 2024 Dennis Gray , MDAttending Provider, Other ProviderActiveStart: July 10, 2024 Team Status: Inactive Member Role Status Dates Demetrius Cooper MD Primary Care Provider Active Start: July 12, 2024 End: July 12, 2024Debora Wild , APRNAttenmonica ProviderActiveStart: July 12, 2024 End: July 12, 2024 Team Status: Active Member Role Status Dates Demetrius Cooper MD Primary Care Provider Active Start: July 12, 2024 Stefanie Engle Provider, Other ProviderActiveStart: July 12, 2024 Team Status: Inactive Member Role Status Dates Demetrius Cooper MD Primary Care Provider Active Start: July 12, 2024 End: July 12, 2024rick Faustin MDAttending ProviderActiveStart: July 12, 2024 End: July 12, 2024 Team Status: Active Member Role Status Dates Demetrius Cooper MD Primary Care Provider Active Start: July 12, 2024 HUMBERTO Harleyeferring ProviderActiveStart: July 12, 2024 Dennis Gray MDOther ProviderActiveStart: July 12, 2024 Maribeth Hull , MDAttending ProviderActiveStart: July 12, 2024 Team Status: Active Member Role Status Dates Demetrius Cooper MD Primary Care Provider Active Start: July 17, 2024 HUMBERTO Harleyeferring ProviderActiveStart: July 17, 2024 Glynn Medinaending ProviderActiveStart: July 17, 2024 rick Faustin MDOther ProviderActiveStart: July 17, 2024 Team Status: Inactive Member Role Status Tati Cooper MD Primary Care Provider Active Start: July 17, 2024 End: July 17jerome Melo MDAttending ProviderActiveStart: July 17, 2024 End: July 17, 2024 Team Status: Inactive Member Role Status Dates Demetrius Cooper MD Primary Care Provider Active Start: July 19, 2024 End: July 19, 2024Debora Wild , APRNAttenmonica ProviderActiveStart: July 19, 2024 End: July 19, 2024 Team Status: Active Member Role Status Dates Demetrius Cooper MD Primary Care Provider Active Start: July 19, 2024 Debora Wild , LESTERNAttenmonica Provider, Other ProviderActiveStart: July 19, 2024 Team Status: Active Member Role Status Dates Demetrius Cooper MD Primary Care Provider Active Start: July 19, 2024 Mary Schneider , HUMBERTOeferring ProviderActiveStart: July 19, 2024 Dennis Gray , MDActiveStart: July 19, 2024 Chavez Tolliver ProviderActiveStart: July 19, 2024 Souelvia Hull , MDAttending ProviderActiveStart: July 19, 2024 Team Status: Inactive Member Role Status Dates Demetrius Cooper MD Primary Care Provider Active Start: July 20, 2024 End: July 20, 2024rick Faustin MDAttending ProviderActiveStart: July 20, 2024 End: July 20, 2024 Team Status: Active Member Role Status Dates Demetrius Cooper MD Primary Care Provider Active Start: July 24, 2024 HUMBERTO Harleyeferring ProviderActiveStart: July 24, 2024 Dennis Gray MDActiveStart: July 24, 2024 Chavez Tolliver ProviderActiveStart: July 24, 2024 Luisana Johns MDAttending ProviderActiveStart: July 24, 2024 Team Status: Active Member Role Status Dates Demetrius Cooper MD Primary Care Provider Active Start: July 26, 2024 HUMBERTO Harleyefgopaling ProviderActiveStart: July 26, 2024 Dennis Gray MDActiveStart: July 26, 2024 Chavez Tolliver ProviderActiveStart: July 26, 2024 Soufilashanda Hull , MDAttending ProviderActiveStart: July 26, 2024 Team Status: Inactive Member Role Status Dates Demetrius Cooper MD Primary Care Provider Active Start: July 26, 2024 End: July 26, 2024rick Faustin MDAttending ProviderActiveStart: July 26, 2024 End: July 26, 2024 Team Status: Inactive Member Role Status Tati Cooper MD Primary Care Provider Active Start: July 26, 2024 End: July 26deyanira Ma , DOAttending ProviderActiveStart: July 26, 2024 End: July 26, 2024 Team Status: Active Member Role Status Dates Demetrius Cooper MD Primary Care Provider Active Start: July 26, 2024 Maru Ma , DOAttending Provider, Other ProviderActiveStart: July 26, 2024 Team Status: Active Member Role Status Dates Demetrius Cooper MD Primary Care Provider Active Start: July 31, 2024 HUMBERTO Harleyeferring ProviderActiveStart: July 31, 2024 Glynn Medinaending ProviderActiveStart: July 31, 2024 Talib Faustin MDOther ProviderActiveStart: July 31, 2024 Luisana Johns , MDActiveStart: July 31, 2024 Team Status: Inactive Member Role Status Dates Demetrius Cooper MD Primary Care Provider Active Start: August 02, 2024 End: August 02jose Galicia , DO FELLOWAttending ProviderActiveStart: August 02, 2024 End: August 02, 2024 Team Status: Active Member Role Status Dates Demetrius Cooper MD Primary Care Provider Active Start: August 02, 2024 HUMBERTO Harleyeferring ProviderActiveStart: August 02, 2024 Dennis Gray MDOther ProviderActiveStart: August 02, 2024 Talib Faustin MDActiveStart: August 02, 2024 Maribeth Hull MDAttending ProviderActiveStart: August 02, 2024 Team Status: Active Member Role Status Tati Cooper MD Primary Care Provider Active Start: August 07, 2024 HUMBERTO Harleyeferring ProviderActiveStart: August 07, 2024 Dennis Gray MDAttending ProviderActiveStart: August 07, 2024 Talib Faustin MDOther ProviderActiveStart: August 07, 2024 Team Status: Inactive Member Role Status Dates Demetrius Cooper MD Primary Care Provider Active Start: August 09, 2024 End: August 09, 2024Debora Wild , APRNAttending ProviderActiveStart: August 09, 2024 End: August 09, 2024 Team Status: Active Member Role Status Dates Demetrius Cooper MD Primary Care Provider Active Start: August 09, 2024 Mary Schneider , HUMBERTOeferring ProviderActiveStart: August 09, 2024 Chavez Medina ProviderActiveStart: August 09, 2024 Talib Faustin , MDActiveStart: August 09, 2024 Souelvia Hull , MDAttending ProviderActiveStart: August 09, 2024 Team Status: Inactive Member Role Status Dates Demetrius Cooper MD Primary Care Provider Active Start: August 09, 2024 End: August 09, 2024rick Faustin , MDAttending ProviderActiveStart: August 09, 2024 End: August 09, 2024 Team Status: Active Member Role Status Dates Demetrius Cooper MD Primary Care Provider Active Start: August 09, 2024 Debora Wild , APRNAttenmonica Provider, Other ProviderActiveStart: August 09, 2024 Team Status: Active Member Role Status Dates Demetrius Cooper MD Primary Care Provider Active Start: August 14, 2024 HUMBERTO Harleyeferring ProviderActiveStart: August 14, 2024 Dennis Gray MDAttending ProviderActiveStart: August 14, 2024 Chavez Tolliver ProviderActiveStart: August 14, 2024 Team Status: Active Member Role Status Dates Demetrius Cooper MD Primary Care Provider Active Start: August 15, 2024 HUMBERTO Harleyeferring ProviderActiveStart: August 15, 2024 Dennis Gray , MDActiveStart: August 15, 2024 Chavez Tolliver ProviderActiveStart: August 15, 2024 Soufian Almmarkpalmer , MDAttending ProviderActiveStart: August 15, 2024 Team Status: Inactive Member Role Status Dates Demetrius Cooper MD Primary Care Provider Active Start: August 16, 2024 End: August 16, 2024Debora Wild , LESTERNAtsarita ProviderActiveStart: August 16, 2024 End: August 16, 2024 Team Status: Active Member Role Status Dates Demetrius Cooper MD Primary Care Provider Active Start: August 16, 2024 Stefanie Engle Provider, Other ProviderActiveStart: August 16, 2024 Team Status: Active Member Role Status Dates Dennis Gray MD Attending Provider Active Start: August 17, 2024 [facility] ProviderActiveStart: August 17, 2024 Team Status: Inactive Member Role Status Dates Demetrius Cooper MD Primary Care Provider Active Start: August 20, 2024 End: August 21, 2024Maye Chavez ProviderActiveStart: August 20, 2024 End: August 21, 2024Mogary Nance , MDAdmit ProviderActiveStart: August 20, 2024 End: August 21, 2024Yash Thomas MDOther ProviderActiveStart: August 20, 2024 End: August 21ndabbie Brennan MDAttending ProviderActiveStart: August 20, 2024 End: August 21, 2024 Team Status: Active Member Role Status Dates Demetrius Cooper MD Primary Care Provider Active Start: August 21, 2024 Maye Chavez ProviderActiveStart: August 21, 2024 Jaiden Nance , MDAdmit ProviderActiveStart: August 21, 2024 Glynn Alonsoending Provider, Other ProviderActiveStart: August 21, 2024 Zeke Brennan MDOther ProviderActiveStart: August 21, 2024 Team Status: Active Member Role Status Dates Demetrius Cooper MD Primary Care Provider Active Start: August 21, 2024 HUMBERTO Harleyeferring ProviderActiveStart: August 21, 2024 Dennis Gray MDActiveStart: August 21, 2024 Talib Faustin MDOther ProviderActiveStart: August 21, 2024 Luisana Johns , MDAttending ProviderActiveStart: August 21, 2024 Team Status: Active Member Role Status Dates Demetrius Cooper MD Primary Care Provider Active Start: August 21, 2024 Maye Chavez ProviderActiveStart: August 21, 2024 Jaiden Nance MDAdmit ProviderActiveStart: August 21, 2024 Yash Thomas MDOther ProviderActiveStart: August 21, 2024 Zeke Brennan MDOther ProviderActiveStart: August 21, 2024 Luisana Johns , MDAttending ProviderActiveStart: August 21, 2024 Team Status: Inactive Member Role Status Dates Demetrius Cooper MD Primary Care Provider Active Start: August 23, 2024 End: August 23, 2024Mhd Ramin Lamas-Delvin , MDAttending ProviderActiveStart: August 23, 2024 End: August 23, 2024 Team Status: Inactive Member Role Status Dates Demetrius Cooper MD Primary Care Provider Active Start: September 07, 2024 End: September 07, 2024Becky Crouch APRNAttenmonica ProviderActive Start: September 07, 2024 End: September 07, 2024 Team Status: Active Member Role Status Dates Demetrius Cooper MD Primary Care Provider Active Start: September 07, 2024 HUMBERTO Harleyeferring ProviderActiveStart: September 07, 2024 Dennis Gray , MDActiveStart: September 07, 2024 Mhd Yaser Al-Marrarhonda , MDAttending ProviderActiveStart: September 07, 2024 Team Status: Inactive Member Role Status Dates Demetrius Cooper MD Primary Care Provider Active Start: September 11, 2024 End: September 11, 2024Gisele Brunson NPAttending ProviderActiveStart: September 11, 2024 End: September 11, 2024 Team Status: Inactive Member Role Status Dates Demetrius Cooper MD Primary Care Provider Active Start: September 20, 2024 End: September 20deyanira Hayes MDEmesantosgency ProviderActiveStart: September 20, 2024 End: September 20, 2024 Team Status: Active Member Role Status Dates Demetrius Cooper MD Primary Care Provider Active Start: June 20, 2024 Mary Schneider , MDReferring ProviderActiveStart: June 20, 2024 Dennis Gray MDOther ProviderActiveStart: June 20, 2024 Luisana Campbell Johns , MDAttending ProviderActiveStart: June 20, 2024 Team Status: Active Member Role Status Dates Demetrius Cooper MD Primary Care Provider Active Start: August 17, 2024 Mary Schneider , MDReferring ProviderActiveStart: August 17, 2024 Dennis Gray , MDAttending ProviderActiveStart: August 17, 2024 rick Faustin MDOther ProviderActiveStart: August 17, 2024 Team Status: Active Member Role Status Dates Mg London MD Primary Care Provider Active Team Status: Inactive Member Role Status Dates Missy Westfall PA-C Attending Provider Active Rod Ambrosio Care ProviderActive Team Status: Inactive Member Role Status Dates Mg London MD Primary Care Provider Active Saúl Calderon ProviderActive Team Status: Inactive Member Role Status Dates Mg London MD Primary Care Provider Active Alanna Hardy , DPM MSAttsara ProviderActiveLatonya Morales ProviderActive Team Status: Inactive Member Role Status Dates Gisele Brunson NP Attending Provider Active Rod Fernandes Care ProviderActive Team Status: Inactive Member Role Status Dates Demetrius Cooper MD Primary Care Provider Active Saúl Calderon ProviderActive Team Status: Inactive Member Role Status Dates Demetrius Cooper MD Primary Care Provider Active Saúl De La Cruz ProviderActive Team Status: Inactive Member Role Status Dates Demetrius Cooper MD Primary Care Provider Active Gisele Brunson NPAttending ProviderActive Team Status: Inactive Member Role Status Dates Demetrius Cooper MD Primary Care Provider Active Tonia Chavez ProviderActiveTeam MemberRelationship SpecialtyStart DateEnd Date Anjali Ruby CNP [address] [place] [address] [facility]03/03/23Team MemberRelationshipSpecialtyStart DateEnd Date Anjali Ruby CNP [address] [place] [address] [facility]03/03/23 Team Status: Inactive Member Role Status Dates Demetrius Cooper MD Primary Care Provider Active Start: July 27, 2023 End: July 26Stefanie Moore ProviderActiveStart: July 27, 2023 End: July 27, 2023 Team Status: Inactive Member Role Status Dates Demetrius Cooper MD Primary Care Provider Active Start: September 02, 2023 End: September 01shad Brunson NPAttsara ProviderActiveStart: September 02, 2023 End: September 02, 2023Team MemberRelationshipSpecialtyStart DateEnd Date Anjali Ruby CNP [address] [place] [address] [facility]03/03/23Team MemberRelationshipSpecialtyStart DateEnd Date Demetrius Cooper MD [address] [place] [phone] PCP - [facility]01/26/24 Clarissa Corado MD [address] [place] [id number] Referring PhysicianNeurology08/03/23Team MemberRelationshipSpecialtyStart DateEnd Date Demetrius Cooper MD [address] [place] [phone] PCP - [facility]01/26/24 Clarissa Corado MD [address] [place] [address] Referring PhysicianNeurology08/03/23Team MemberRelationshipSpecialtyStart DateEnd Date Demetrius Cooper MD [address] [place] [phone] PCP - [facility]01/26/24 Clarissa Corado MD [address] [place] [address] Referring PhysicianNeurology08/03/23Team MemberRelationshipSpecialtyStart DateEnd Date Anjali Ruby CNP [facility] [address] [place] [address] [facility] Team Status: Inactive Member Role Status Dates Demetrius Cooper MD Primary Care Provider Active Start: February 29, 2024 End: February 29, 2024Hithaigo Ham Jr [facility] ProviderActiveStart: February 29, 2024 End: February 29, 2024Team MemberRelationshipSpecialtyStart DateEnd Date Demetrius Cooper MD [address] [place] [address] PCP - [facility]01/26/24 Clarissa Corado MD [address] [place] [id number] Referring PhysicianNeuromulticare [facility]08/03/23Team MemberRelationshipSpecialtyStart DateEnd Date Demetrius Cooper MD [address] [place] [phone] PCP - [facility]01/26/24 Clarissa Corado MD [address] [place] [id number] Referring PhysicianNeurology08/03/23Team MemberRelationshipSpecialtyStart DateEnd Date Demetrius Cooper MD [address] [place] [phone] PCP - GeneralFamily Medicine01/26/24 Clarissa Corado MD [address] [place] [address] Referring PhysicianNeurology08/03/23Team MemberRelationshipSpecialtyStart DateEnd Date Demetrius Cooper MD [address] [place] [address] PCP - Generalmily Hyxvsqbd56/11/24 Anjali Ruby [facility] [address] [place] [address] ReferringFami Vdwlydhz31/18/23 Luc Ham MD [address] [id number] Ent - Ufjrcwrvxswbpe38/25/24Team MemberRelationshipSpecialtyStart DateEnd Date Demetrius Cooper MD [address] [place] [phone] PCP - Generalmily Medicine01/26/24 Clarissa Corado MD [address] [place] [address] Referring PhysicianNeurology08/03/23Team MemberRelationshipSpecialtyStart DateEnd Date Demetrius Cooper MD [address] [facility] [address] [facility] Jhuhhkyb61/26/24Team MemberRelationshipSpecialtyStart Date End Date Demetrius Cooper MD [address] [facility] [address] [facility] - [facility] Kphynnjx52/26/24Team MemberRelationshipSpecialtyStart Date End Date Demetrius Cooper MD [address] [facility] [address] PCP - [facility] Yvwlpodz91/26/24Team MemberRelationshipSpecialtyStart Date End Date Demetrius Cooper MD [address] [facility] [address] [facility] Imkcnuxs70/26/24 Team Status: Inactive Member Role Status Dates Demetrius Cooper MD Primary Care Provider Active Start: June 14, 2024 End: June 14, 2024Glynn Garciaending ProviderActiveStart: June 14, 2024 End: June 14, 2024Hue Harleying ProviderActiveStart: June 14, 2024 End: June 14, 2024 Team Status: Active Member Role Status Dates Demetrius Cooper MD Primary Care Provider Active Start: June 14, 2024 MhGlynn Garciaending ProviderActiveStart: June 14, 2024 Samantha Harley ProviderActiveStart: June 14, 2024 Team Status: Inactive Member Role Status Dates Demetrius Cooper MD Primary Care Provider Active Start: June 14, 2024 End: June 14, 2024Glynn Medinaending ProviderActiveStart: June 14, 2024 End: June 14, 2024Mary Schneider MDReferring ProviderActiveStart: June 14, 2024 End: June 14, 2024Team MemberRelationshipSpecialtyStart DateEnd Date Demetrius Cooper MD [address] [place] [phone] PCP - [facility]01/26/24 Clarissa Corado MD [address] [place] [address] Referring PhysicianNeurology08/03/23 Team Status: Active Member Role Status Dates Demetrius Cooper MD Primary Care Provider Active Start: June 20, 2024 HUMBERTO Harleyeferring ProviderActiveStart: June 20, 2024 Dennis Gray , MDAttending ProviderActiveStart: June 20, 2024 Team MemberRelationshipSpecialtyStart DateEnd Date Demetrius Cooper MD [address] [place] [phone] [facility] - [facility]01/26/24 Clarissa Corado MD [address] [place] [address] Referring PhysicianNeuromulticare [facility]08/03/23 Team Status: Active Member Role Status Dates Demetrius Cooper MD Primary Care Provider Active Start: July 06, 2024 HUMBERTO Harleyeferring ProviderActiveStart: July 06, 2024 Dennis Gray MDAttending Provider, Other ProviderActiveStart: July 06, 2024 Team Status: Active Member Role Status Dates Demetrius Cooper MD Primary Care Provider Active Start: July 12, 2024 Debora Wild , APRNAttending ProviderActiveStart: July 12, 2024 Team Status: Active Member Role Status Dates Demetrius Cooper MD Primary Care Provider Active Start: July 12, 2024 Mary Schneider , MDReferring ProviderActiveStart: July 12, 2024 Dennis Gray , MDAttending ProviderActiveStart: July 12, 2024 Mhd Jovanaser Jared-Marrarhonda , MDActiveStart: July 12, 2024 Team Status: Active Member Role Status Dates Demetrius Cooper MD Primary Care Provider Active Start: July 13, 2024 Mary Schneider , MDReferring ProviderActiveStart: July 13, 2024 Dennis Gray , MDAttending ProviderActiveStart: July 13, 2024 Mhrick Faustin MDOther ProviderActiveStart: July 13, 2024 Team Status: Active Member Role Status Dates Demetrius Cooper MD Primary Care Provider Active Start: July 17, 2024 HUMBERTO Harleyeferring ProviderActiveStart: July 17, 2024 Dennis Gray , MDActiveStart: July 17, 2024 Mhd Ramin Lamas-Delvin , MDAttending ProviderActiveStart: July 17, 2024 Team Status: Active Member Role Status Dates Demetrius Cooper MD Primary Care Provider Active Start: July 20, 2024 HUMBERTO Harleyeferring ProviderActiveStart: July 20, 2024 Dennis Gray , MDAttending ProviderActiveStart: July 20, 2024 Talib Faustin MDOther ProviderActiveStart: July 20, 2024 Team Status: Active Member Role Status Dates Dennis Gray MD Attending Provider Active Start: July 20, 2024 [facility] Care ProviderActiveStart: July 20, 2024 Team Status: Active Member Role Status Dates Demetrius Cooper MD Primary Care Provider Active Start: July 26, 2024 HUMBERTO Harleyeferring ProviderActiveStart: July 26, 2024 Dennis Gray , MDActiveStart: July 26, 2024 Mhd Ramin Lamas-Delvin , MDAttending ProviderActiveStart: July 26, 2024 Team Status: Active Member Role Status Dates Demetrius Cooper MD Primary Care Provider Active Start: July 27, 2024 Mary Schneider MDReferring ProviderActiveStart: July 27, 2024 Dennis Gray , MDActiveStart: July 27, 2024 Talib Faustin MDOther ProviderActiveStart: July 27, 2024 Luisanaalonzo Johns , MDAttending ProviderActiveStart: July 27, 2024 Team Status: Active Member Role Status Dates Dennis Gray MD Attending Provider Active Start: July 27, 2024 Demetrius Cooper , IRWINrijaniay Care ProviderActiveStart: July 27, 2024 Team Status: Active Member Role Status Dates Demetrius Cooper MD Primary Care Provider Active Start: July 24, 2024 Mary Schneider MDReferring ProviderActiveStart: July 24, 2024 Dennis Gray , MYAttending ProviderActiveStart: July 24, 2024 Chavez Tolliver ProviderActiveStart: July 24, 2024 Team Status: Active Member Role Status Dates Demetrius Cooper MD Primary Care Provider Active Start: August 03, 2024 HUMBERTO Harleyeferring ProviderActiveStart: August 03, 2024 Dennis Gray , MYAttending ProviderActiveStart: August 03, 2024 Talib Faustin MDOther ProviderActiveStart: August 03, 2024 Team Status: Active Member Role Status Dates Dennis Gray MD Attending Provider Active Start: August 03, 2024 [facility] ProviderActiveStart: August 03, 2024 Team Status: Active Member Role Status Dates Dennis Gray MD Attending Provider Active Start: August 10, 2024 IRWIN Fernandesrimary Care ProviderActiveStart: August 10, 2024 Team Status: Active Member Role Status Dates Demetrius Cooper MD Primary Care Provider Active Start: August 10, 2024 HUMBERTO Harleyeferring ProviderActiveStart: August 10, 2024 Dennis Gray MDAttending ProviderActiveStart: August 10, 2024 Talib Faustin MDOther ProviderActiveStart: August 10, 2024 Team Status: Active Member Role Status Dates Demetrius Cooper MD Primary Care Provider Active Start: August 16, 2024 Mary Schneider , MDReferring ProviderActiveStart: August 16, 2024 Dennis Gray , MDAttending ProviderActiveStart: August 16, 2024 Mhd Yaser Al-Marrawi , MDActiveStart: August 16, 2024 Team Status: Active Member Role Status Dates Demetrius Cooper MD Primary Care Provider Active Start: August 18, 2024 Mary Schneider , MDReferring ProviderActiveStart: August 18, 2024 Dennis Gray , MDActiveStart: August 18, 2024 Mhd Yaser Al-Marrawi , MDAttending ProviderActiveStart: August 18, 2024 Team Status: Active Member Role Status Dates Demetrius Cooper MD Primary Care Provider Active Start: August 20, 2024 Maye Chavez ProviderActiveStart: August 20, 2024 Jaiden Nance MDAdmit Provider, Attending ProviderActiveStart: August 20, 2024 Team MemberRelationshipSpecialtyStart DateEnd Date Demetrius Cooper MD [address] [facility] [place] [address] PCP - GeneralFamily Ttostnko99/26/24Team MemberRelationshipSpecialtyStart Date End Date Demetrius Cooper MD [address] [place] [phone] PCP - GeneralFamily Medicine01/26/24 Clarissa Corado MD Referring PhysicianNeurology08/03/23Team MemberRelationshipSpecialtyStart DateEnd Date Demetrius Cooper MD [address] [place] [phone] PCP - GeneralFamily Medicine01/26/24 Clarissa Corado MD Referring PhysicianNeurology08/03/23 Team Status: Active Member Role Status Dates Demetrius Cooper MD Primary Care Provider Active Start: September 25, 2024 Mary Schneider MDReferring ProviderActiveStart: September 25, 2024 Dennis Gray MDActiveStart: September 25, 2024 Talib Faustin MDAttsara ProviderActiveStart: September 25, 2024 Team Status: Inactive Member Role Status Dates Demetrius Cooper MD Primary Care Provider Active Start: September 26, 2024 End: September 26, 2024Stefanie Engle ProviderActiveStart: September 26, 2024 End: September 26, 2024Team MemberRelationshipSpecialtyStart DateEnd Date Demetrius Cooper MD [address] [place] [address] PCP - Generalmily Medicine01/26/24 Clarissa Corado MD Referring PhysicianNeurology08/03/23Team MemberRelationshipSpecialtyStart DateEnd Date Demetrius Cooper MD [address] [place] [address] PCP - GeneralFamily Medicine01/26/24 Clarissa Corado MD Referring PhysicianNeurology08/03/23Team MemberRelationshipSpecialtyStart DateEnd Date Demetrius Cooper MD [address] [place] [address] PCP - GeneralFamily Medicine01/26/24 Clarissa Corado MD Referring PhysicianNeurology08/03/23 Team Status: Inactive Member Role Status Dates Demetrius Cooper MD Primary Care Provider Active Start: October 03, 2024 End: October 03, 2024Octavia Hernandes ProviderActiveStart: October 03, 2024 End: October 03, 2024 Team Status: Active Member Role Status Dates Demetrius Cooper MD Primary Care Provider Active Start: November 23, 2024 Stefanie Engle ProviderActiveStart: November 23, 2024 Team Status: Inactive Member Role Status Dates Demetrius Cooper MD Primary Care Provider Active Start: November 23, 2024 End: November 23, 2024Mhd Yaser Al-Marrawi , MDAttending ProviderActiveStart: November 23, 2024 End: November 23, 2024 Team Status: Active Member Role Status Dates Demetrius Cooper MD Primary Care Provider Active Start: November 23, 2024 Mary Schneider MDReferring ProviderActiveStart: November 23, 2024 Mhd Yaser Al-Marrawi , MDAttending ProviderActiveStart: November 23, 2024 Team Status: Active Member Role Status Dates Demetrius Cooper MD Primary Care Provider Active Start: November 23, 2024 Dennis Gray , MDAttending ProviderActiveStart: November 23, 2024 Team Status: Inactive Member Role Status Dates Demetrius Cooper MD Primary Care Provider Active Start: November 23, 2024 End: November 23, 2024Noiván Gray , MDAttending ProviderActiveStart: November 23, 2024 End: November 23, 2024 Team Status: Inactive Member Role Status Dates Demetrius Cooper MD Primary Care Provider Active Start: November 23, 2024 End: November 23, 2024Stefanie Engle ProviderActiveStart: November 23, 2024 End: November 23, 2024Team MemberRelationshipSpecialtyStart DateEnd Date Demetrius Cooper MD [address] [place] [address] [place] [address] PCP - [facility]04/11/24 Team Status: Active Member Role Status Dates Demetrius Cooper MD Primary Care Provider Active Start: November 23, 2024 Stefanie Engle ProviderActiveStart: November 23, 2024 Debora Wild APRNOt ProviderActiveStart: November 23, 2024 Team Status: Inactive Member Role Status Dates Demetrius Cooper MD Primary Care Provider Active Start: December 26, 2024 End: December 26, 2024Stefanie Garnica ProviderActive Start: December 26, 2024 End: December 26, 2024 Team Status: Active Member Role Status Dates Demetrius Cooper MD Primary Care Provider Active Start: December 26, 2024 aSmantha Harley ProviderActiveStart: December 26, 2024 d Ramin Faustin MDAttending ProviderActiveStart: December 26, 2024 Team MemberRelationshipSpecialtyStart DateEnd Date Demetrius Cooper MD [address] [place] [address] PCP - Generalmi Medicine01/26/24 Clarissa Corado MD Referring PhysicianNeurology08/03/23Team MemberRelationshipSpecialtyStart DateEnd Date Demetrius Cooper MD [address] [place] [address] [facility] - [facility]/24 Clarissa Corado MD Referring PhysicianNeurology08/03/23 Team Status: Inactive Member Role Status Dates Demetrius Cooper MD Primary Care Provider Active Start: February 22, 2025 End: February 22, 2025Stefanie Garnica ProviderActive Start: February 22, 2025 End: February 22, 2025 Team Status: Active Member Role Status Dates Demetrius Cooper MD Primary Care Provider Active Start: February 22, 2025 Samantha Harley ProviderActiveStart: February 22, 2025 Saúl Tolliver ProviderActiveStart: February 22, 2025 Goals (unrecognized section and content) Goals may be documented in a n alternate section Source Comments (unrecognize d section and content) In the event this informatio n is protected by the Federal Confidentiality of Alcohol and Drug Abuse Patient Records regulations: The Federal rules restrict any use of the information to criminally investigate or prosecute any alcohol or drug abuse patient.[facility] CenterIn the event this information is protected by the Federal Confidentiality of Alcohol and Drug Abuse Patient Records regulations: The Federal rules restrict any use of the information to criminally investigate or prosecute any alcohol or drug abuse patient.[facility] CenterIn the event this information is protected by the Federal Confidentiality of Alcohol and Drug Abuse Patient Records regulations: The Federal rules restrict any use of the information to criminally investigate or prosecute any alcohol or drug abuse patient.[facility] CenterIn the event this information is protected by the Federal Confidentiality of Alcohol and Drug Abuse Patient Records regulations: The Federal rules restrict any use of the information to criminally investigate or prosecute any alcohol or drug abuse patient.[facility] CenterIn the event this information is protected by the Federal Confidentiality of Alcohol and Drug Abuse Patient Records regulations: The Federal rules restrict any use of the information to criminally investigate or prosecute any alcohol or drug abuse patient.[facility] PRN Active and Recently Administ ered Medications (unrecognized section and content) Medication Order// oxymetazoline (Afrin) 0.05 % nasal spray (CANCELED) As needed, Starting on Shira 05/11/24 at 0750, Intraprocedure * 0750 (Given - Provider: Mary Schneider MD) sodium chloride 0.9 % irrigation solution (CANCELED) As needed, Starting on Shira 05/11/24 at 0750, Intraprocedure * 0750 (Given - Provider: Mary Schneider MD) sterile water irrigation solution (CANCELED) As needed, Starting on Shira 05/11/24 at 0750, Intraprocedure * 0750 (Given - Provider: Mary Schneider MD - Comment: FOR SCOPE) [...] BE BASED ON THE PRIMARY CLINICAL RECORDS. [facility]. provides no warranty or guarantee of the accuracy or completeness of information in this document.
[2025-03-07 11:53] LABS: Free T3 2.87 pg/mL (2.18-3.98); Thyroid Stimulating Hormone 1.703 uIU/mL (0.358-3.740)
== END 2025-03-07 10:31 | disposition home or self-care (01) ==
LOC: LAB 10:31
PROVIDERS: PCP Family Medicine; Visit Provider Family Medicine
DX: E03.9 Hypothyroidism, unspecified (principal)
CPT/HCPCS: 36415; 84436; 84443; 84481

== ENCOUNTER 2025-03-07 10:58 | Outpatient (OUT) | payer MEDICARE, SELFPAY ==
--- OUTSIDE RECORDS SUMMARY | 2025-03-07 11:01 | XMS_ITS | Encounter Summary ---
Author Organization [facility] Address [address] [address] Care Team Providers Care Social Services Name Role Phone Yajaira Roque JACK SPOOLER TENDER-C Primary Care Provider [phone] Reason for Visit * ReasonCommentsMed Refill Encounter Details DateTypeDepartmentCare Team (Latest Contact Info)Lodviemtsbz97/21/2025Refill [facility] [address] [place] [address] Daniel Brunner MD [address] [place] [address] Mitral valve insufficiency, unspecified etiology Social History Tobacco UseTypesPacks/DayYears UsedDateSmoking Tobacco: FormerCigarettesQuit: 1984Smokeless Tobacco: NeverAlcohol UseStandard Drinks/WeekCommentsYes0 (1 standard drink = 0.6 oz pure alcohol)OCCASIONALUT Safety & EnvironmentAnswerDate RecordedFear of Current or Ex-PartnerNot on file07/08/2023Emotionally AbusedNot on file4Physically AbusedNot on 07/08/2023Sexually AbusedNot on file07/08/2023hysically or Sexually AbusedNot on file07/08/2023Sex and Gender InformationValueDate RecordedSex Assigned at IrxdeIyyu11/19/2025 3:16 PM EDT Legal XuuKrwe4111/13/2021 12:17 AM EDTGender CqolneuzZhvd34/19/2025 3:16 PM EDT Sexual OrientationHeterosexual or Ubwnhkre67/19/2025 3:16 PM EDTdocumented as of this encounter Plan of Treatment Not on file documented as of this encounter Visit Diagnoses Diagnosis Mitral valve insufficiency, unspecified etiology documented in this encounter Care Teams Team MemberRelationshipSpecialtyStart DateEnd Date Yajaira Roque FNP-C [address] [place] [address] PCP - GeneralNurse Practitioner12/05/24documented as of this encounter
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
--- OUTSIDE RECORDS SUMMARY | 2025-03-07 11:01 | XMS_ITS | Encounter Summary ---
Author Organization [facility] Address [address] [place] [address] Care Team Providers Care Brands Editor Name Role Phone Yajaira Roque FIREWORKS MAKER-C Primary Care Provider [phone] Reason for Visit * ReasonCommentsMed Refill Encounter Details DateTypeDepartmentCare Team (Latest Contact Info)Bxyrgpnslly05/12/2025Refill [facility] [address] [place] [address] Margaret Arellano MD [address] [facility] [address] [place] [address] Chest pain, unspecified type; Hypertension, unspecified type Social History Tobacco UseTypesPacks/DayYears UsedDateSmoking Tobacco: FormerCigarettesQuit: 1984Smokeless Tobacco: NeverAlcohol UseStandard Drinks/WeekCommentsYes0 (1 standard drink = 0.6 oz pure alcohol)OCCASIONALUT Safety & EnvironmentAnswerDate RecordedFear of Current or Ex-PartnerNot on file07/08/2023Emotionally AbusedNot on file07/08/2023hysically AbusedNot on file07/08/2023Sexually AbusedNot on file07/08/2023hysically or Sexually AbusedNot on 07/08/2023Sex and Gender InformationValueDate RecordedSex Assigned at YzvgvQqeq73/19/2025 3:16 PM EDT Legal TlyNkho7811/13/2021 12:17 AM EDTGender FgrskndvIdhz99/19/2025 3:16 PM EDT Sexual OrientationHeterosexual or Dupgisut63/19/2025 3:16 PM EDTdocumented as of this encounter Plan of Treatment Not on file documented as of this encounter Visit Diagnoses Diagnosis Chest pain, unspecified type Hypertension, unspecified type documented in this encounter Care Teams Team MemberRelationshipSpecialtyStart DateEnd Date Yajaira Roque FNP-C [address] [place] [address] PCP - GeneralNurse Practitioner12/05/24documented as of this encounter
--- OUTSIDE RECORDS SUMMARY | 2025-03-07 11:01 | XMS_ITS | Clinical Summary ---
Author Organization [facility] Address [address] [place] [address] Phone Care Team Providers Care Reservoir Engineering Advisor Name Role Phone Demetrius Mirza MD Primary Care Provider [phone] Allergies Active AllergyReactionsCriticalityNoted UjxjCykplywaYbdajkhaSwqeYxr92/12/2024 Adhesive Tape-VudgiwpipVjitOfb27/05/2019NiacinHives,Itching,Prjnggg3701/19/2019 Medications MedicationSigDispense QuantityRefillsLast FilledStart DateEnd DateStatus amLODIPine (Norvasc) 5 mg tablet Take 1 tablet (5 mg) by mouth once daily.02/21/2024ctive aspirin 81 mg EC tablet Take 1 tablet (81 mg) by mouth once daily.Active sdjlrkqvnl-dtzdjkqajkhqj-kzpy 50-325-40 mg tablet Take 1 tablet by [...] 1 each.Active Active Problems ProblemNoted DateDiagnosed DatePrimary grphbtksnkae55/26/2024oronary artery disease involving autologous artery coronary bypass graft05/11/2024acemaker 05/11/2024Stented coronary lwymbi2405/11/2024Ventricular gocnkgoojsy32/26/2024OSA (obstructive sleep apnea)05/11/2024Gastroesophageal reflux aztpwfz1605/11/2024 Szblxvrvk63/26/2024iabetes mellitus, type Oral xfielt4604/07/2024 Malignant neoplasm of floor of mouth04/07/2024 Encounters DateTypeDepartmentCare GsefFimmapwywtc54/22/2025bstract [facility] [address] [place] [place] [address] Mary Schneider MD 12/11/2024 1:45 PM EDTOffice Visit [facility] [address] [place] [address] Mary Schneider MD 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); G tube feedings (Multi); At risk for axkbgsnalhtx30/28/2025Travelfrom Last 3 Months Family History Medical HistoryRelationNameCommentsCancerFatherPaul J BauerHearing lossFather Daniel J BauerVision lossMaternal GrandfatherGeorge SmithHypertensionMaternal GrandmotherEdna SmithAsthmaMotherDoris M BauerHypertensionMotherDoris M Bennett Vision lossOtherAnna BremmserHypertensionPaternal GrandmotherKatherine Bennett Vision lossPaternal GrandmotherKatherine BauerCancerSisterJudy ReisigMotion SicknessSisterJudy ReisigRelationNameStatusCommentsFatherPaul J BauerAlive Maternal GrandfatherGeorge SmithAliveMaternal GrandmotherEdna SmithAliveMother Estee M BauerAliveOtherAnna BremmserAlivePaternal GrandmotherKatherine Bennett AliveSisterJudy ReisigAlive Social History Tobacco UseTypesPacks/DayYears UsedDateSmoking Tobacco: WlniqjSykbrulflk132Fsqk: 05/17/1983Smokeless Tobacco: Former Tobacco Cessation:Counseling Given: No Alcohol UseStandard Drinks/WeekCommentsYes2 (1 standard drink = 0.6 oz pure alcohol)or less or weekPHQ-2AnswerDate RecordedPatient Health Questionnaire-2 Jglll850Sex and Gender InformationValueDate RecordedSex Assigned at BirthNot on fileLegal QlfClxg55/25/2022 9:24 AM ESTGender BewuywjjYakk98/26/2024 5:56 AM ESTSexual PeskyshtxeuKuwgbhgb44/26/2024 5:56 AM EST Last Filed Vital Signs Vital SignReadingTime TakenCommentsBlood Ikczctsq522/69012/11/2024 1:30 PM EDT Jglqw6628 2:13 PM YYAJolknvvqmmx77 ??C (96.8 ??F)09/11/2024 1:07 PM EDT Respiratory Esgk5846 2:13 PM ESTOxygen Krppbgyrpy94%06/05/2024 2:13 PM ESTInhaled Oxygen Concentration--Huqesp04.7 kg (160 lb 2.6 oz)12/11/2024 1:30 PM LRHKgefdd709.1 cm (5' 5 )09/11/2024 1:07 PM EDTBody Mass Index26.65009/11/2024 1:07 PM EDT Plan of Treatment DateTypeDepartmentCare Team (Latest Contact Info)Renzxwqjaws98/23/2026 1:30 PM ESTOffice Visit [facility] [address] [place] [address] [place] [address] [place] [address] Health MaintenanceDue DateLast DoneCommentsDiabetes: Hemoglobin A1C1939 Diabetes: Urine Protein Yyugleixs37/15/9143Swrcgkxikdtgii64/15/1940Lipid Panel 1939Medicare Annual Wellness Visit (AWV)1939Diabetes: Retinopathy Prlvwrzie34/15/1950DTaP/Tdap/Td Vaccines (1 - Tdap)10/29/1961Influenza Vaccine (#1)512/06/2023, 04/12/2023, 02/18/2021, Additional history exists COVID-19 Vaccine ( season)/, 11/25/2021, 03/06/2021, Additional history existsCreatinine Level/ Potassium Level/4Pneumococcal RgvurhwVbrmpshdx23/08/2024, 01/30/2014Zoster TstvcgooSrubhakkb57/25/2024, 4RSV High Risk: (Elderly (60+) or Population)Mvnbarqfr64/06/2024HIB VaccinesAged OutNo longer eligible based on patient's [...] topic Procedures Procedure NamePriorityDate/TimeAssociated DiagnosisCommentsBASIC METABOLIC PANEL Mxezxnv4704/11/2024 9:14 AM EST Oral lesion 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) from Last 3 Months or Most Recently Relevant to Health Maintenance Results * (ABNORMAL) Basic Metabolic Panel (04/11/2024 9:14 AM EST)ComponentValueRef RangeTest MethodAnalysis TimePerformed AtPathologist GackctfweIzgtuqr249(H)74 - 99 mg/dL LAB CHEMISTRY METHOD 04/11/2024 11:09 AM [facility] QBZQzocnj656312 - 145 mmol/L LAB CHEMISTRY METHOD 04/11/2024 11:09 AM [facility] LABPotassium4.53.5 - 5.3 mmol/L LAB CHEMISTRY METHOD 04/11/2024 11:09 AM [facility] KGVBbycwovj30139 - 107 mmol/L LAB CHEMISTRY METHOD 04/11/2024 11:09 AM [facility] SVFNwdbrxucisk1674 - 32 mmol/L LAB CHEMISTRY METHOD 04/11/2024 11:09 AM [facility] LABAnion Zsa6066 - 20 mmol/L LAB CHEMISTRY METHOD 04/11/2024 11:09 AM [facility] LABUrea Sceuvugc126 - 23 mg/dL LAB CHEMISTRY METHOD 04/11/2024 11:09 AM [facility] LABCreatinine0.960.50 - 1.30 mg/dL LAB CHEMISTRY METHOD 04/11/2024 11:09 AM [facility] FERyWWL57>60 mL/min/1.73m*2 LAB CHEMISTRY METHOD 04/11/2024 11:09 AM [facility] LABComment: Calculations of estimated GFR are performed using the 2020 CKD-EPI Study Refit equation without therace variable for the IDMS-Traceable creatinine methods. https://jasn.asnjournals.org/content//ASN.7808572941 Calcium9.98.6 - 10.6 mg/dL LAB CHEMISTRY METHOD 04/11/2024 11:09 AM [facility] LABSpecimen (Source)Anatomical Location / LateralityCollection Method / VolumeCollection TimeReceived TimeBloodVenous blood specimen / UnknownVenipuncture / Nejwlgd4504/11/2024 9:14 AM EST04/11/2024 10:37 AM EST Narrative Authorizing ProviderResult TypeResult StatusTracy Adrian JERONIMO BLOOD ORDERABLESFinal ResultPerforming OrganizationAddressCity/State/ZIP CodePhone Number [facility] [address] [phone] from Last 3 Months or Most Recently Relevant to Health Maintenance Insurance Advance Directives For more information, please contact: [phone] (Available ) TypeDate RecordedPatient RepresentativeExplanationHealthcare Power of Atty 05/11/2024Living Will05/11/2024 Care Teams Team MemberRelationshipSpecialtyStart DateEnd Date Demetrius Mirza MD [address] [facility] [place] [address] PCP - GeneralFamily Vpezxppf51/26/24
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
--- OUTSIDE RECORDS SUMMARY | 2025-03-07 11:01 | XMS_ITS | Clinical Summary ---
Author Organization [employer] tem Address [id number] [address] [place] [address] Care Team Providers Care Credit Administration Specialist Name Role Phone Unavailable Primary Care Provider Unavailabl e Allergies Active AllergyReactionsCriticalityNoted DateCommentsAdhesive Tape-Silicones 01/19/20193180Lrybqh59/05/2019 Medications MedicationSigDispense QuantityRefillsLast FilledStart DateEnd DateStatus glimepiride (AMARYL) 2 mg tablet Indications:Type 2 diabetes mellitus without complication, without long-term current use of insulin ([facility])Take 1 tablet (2 mg total) by [...] (six) hours as needed for muscle spasms.Active avqsaonpxp-nqzoqufxtk-lxr-cod (FIORICET WITH CODEINE) 32-098-92-30 mg per capsule Take 1 capsule by [...] mouth daily.Active Active Problems ProblemNoted DateDiagnosed DatePreventative [facility]01/29/2019 Assessment & Plan (01/29/2019 8:01 PM EDT): DATE WHEN VACCINE ------- --FLU YRLY IN FALL --TETANUS Q 10 YRS nxdbb5356 --HZ ONCE AGE 59 Needs 2019 --PREVNAR [...] arb/arti, statin On arb, asa, statin Seasonal /15/2019 Overview (01/29/2019): flnoase CAD (coronary artery disease)01/29/2019 [...] Hearing Aids Hyperlipidemia Overview (01/29/2019): crestor , [place] 3 Hypertension Overview (01/29/2019): Amlodipine, avapro Migraines Overview (01/29/2019): fioricet with codiene, depakote Neuropathy Overview (01/29/2019): feet / DM / gabapentin NPH (normal pressure hydrocephalus) Overview (01/29/2019): vp care management shunt Osteoarthritis Overview (01/29/2019): Mobic, tyenol, zanaflex PacemakerPeripheral edema Overview (01/29/2019): lasix Prostate cancerSkin cancerUrine incontinence Overview (01/29/2019): post prostate suregery / 2 urethral valve surgeries Insomnia Overview (01/29/2019): ambien Cardiac dysrhythmia Overview (01/29/2019): Pacemaker, plavix, asa, sotalol Resolved Problems ProblemNoted DateDiagnosed DateResolved WhlePpjotegxychihr06/15/2019 Overview (01/29/2019): colonoscopy Immunizations ImmunizationAdministration DatesNext DueInfluenza, Iivuqaindsv36/08/2018 Pneumococcal Zdtgjgxku16/16/2014 Family History Medical HistoryRelationNameCommentsCOPDMotherHypertensionMotherKidney failure MotherRelationNameStatusCommentsFatherDeceased (Age 98)old age , glaucomaMother (Age 88)liver failure, CHF ESRD dialysis Social History Tobacco UseTypesPacks/DayYears UsedDateSmoking Tobacco: FormerCigarettesPipe CigarsSmokeless Tobacco: FormerSnuff, Chew Tobacco Cessation:Counseling Given: Yes Alcohol UseStandard Drinks/WeekCommentsNot Currently0 (1 standard drink = 0.6 oz pure alcohol)RARELYChildcareAnswerDate TzpeeorvOxiqgjxvvGkjbdip82/28/2019 EmploymentAnswerDate YzhdwewqYwzyxsdqewHogport20/28/2019Purpose - LifeAnswerDate RecordedPurpose and direction in vzkiEzvepir97/11/2021ex and Gender Information ValueDate RecordedSex Assigned at BirthNot on fileLegal HthIdku6901/11/2019 11:13 AM EDTGender IdentityNot on fileSexual OrientationNot on file Last Filed Vital Signs Vital SignReadingTime TakenCommentsBlood Ccldqtmk269/7409 2:35 PM EDT Rsiji214301/19/2019 2:35 PM DHWRrsgwepdtrz10.3 ??C (97.4 ??F)01/19/2019 2:35 PM EDTRespiratory Rrew0738 2:35 PM EDTOxygen Uxmogdxkeo58%01/19/2019 2:35 PM EDTInhaled Oxygen Concentration--Gmgpme89.2 kg (203 lb 4.8 oz)01/19/2019 2:35 PM EDTHeight--Body Mass Index-- Plan of Treatment Health MaintenanceDue DateLast DoneCommentsDepression Jodltuplv65/15/1952Tobacco Exvgsrpeo59/15/1952DTaP,Tdap and Td Vaccines (1 - Tdap)10/29/1958Zoster (Shingles) Vaccine (1 of 2)10/29/1958Fall Risk Dufshokhv81/15/2005Influenza Hlmkjgy82/01/52507101/22/2018 Medical Devices Not on file Insurance
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
--- OUTSIDE RECORDS SUMMARY | 2025-03-07 11:01 | XMS_ITS | Clinical Summary ---
Author Organization [facility] Address [address] [place] [address] Care Team Providers Care Media Manager Name Role Phone Anjali Ruby CNP Unavailable [phone] Consuelo Mcghee MD Unavailable Demetrius Mirza MD Primary Care Provider [phone] Allergies Active AllergyReactionsCriticalityNoted DateCommentsAdhesive Tape-SiliconesRash 01/19/2019NiacinItching,Wgxucpf1301/19/2019 Medications MedicationSigDispense QuantityRefillsLast FilledStart DateEnd DateStatus isosorbide mononitrate ER (IMDUR) 30 mg 24 hr tablet Take 30 mg by mouth.08/31/2022ctive clopidogrel (PLAVIX) 75 mg tablet 02/27/2023ctive furosemide (LASIX) 20 mg tablet Take 20 mg by mouth.04/24/2020Active fluticasone (FLONASE) 50 mcg/actuation nasal spray 1 [place].08/24/2022ctive omeprazole (PRILOSEC) 40 mg capsule Take 40 [...] RecordedNational Score (1-100), lower number is lower xzay358004/01/2023State Score (1-10), lower number is lower jusj93406/01/2022ata from: https://www.neighborhoodatlas.medicine.[facility].edu/. Last address used for t[address]/01/2023Sex and Gender InformationValueDate RecordedSex Assigned at BirthNot on fileLegal TkjUunz26/18/2023 7:42 AM EDTGender Identity Not on fileSexual OrientationNot on file Last Filed Vital Signs Vital SignReadingTime TakenCommentsBlood Lwpnslrf651/6611/ 1:15 PM EST Ntzlc738604/01/2023 1:15 PM XPDTvmbhgqmnkl57.2 ??C (97.1 ??F)04/01/2023 1:15 PM ESTRespiratory Rate--Oxygen Ilqleltohb86%04/01/2023 1:15 PM ESTInhaled Oxygen Concentration--Ynooqy43.8 kg (167 lb)04/01/2023 1:15 PM ESTHeight--Body Mass Index-- Plan of Treatment Health MaintenanceDue DateLast DoneCommentsAnxiety Wkmzqaexn42/15/1958Depression Goitpcyus29/15/1958DTaP,Tdap,Td Vaccine (1 - Tdap)10/29/1958Diabetes Screening 10/29/1984RSV Vaccine (1 - 1-dose 75+ series)10/29/2014dvance Directive Ckmssyowxy27/01/2025Medicare Advantage Annual Wellness Visit05/17/2024ovid-19 Vaccine (2024- season), 11/25/2021, 03/06/2021, Additional history existsInfluenza Vaccine (#1)5106/12/2022, 02/18/2021, 02/14/2020, Additional history existsPneumococcal Vaccine: 50+Completed 11/22/2023, 01/30/2014Shingrix WzgqjcsRkwhgvifv15/25/2024, 11/22/2023 Insurance Care Teams Team MemberRelationshipSpecialtyStart DateEnd Date Demetrius Mirza MD [address] [place] [address] PCP - GeneralFamily Xyjkvdpd20/11/24 Anjali Ruby, ESTHETICS INSTRUCTOR [address] [place] [address] ReferringFamily Wwdbpxtm01/18/23 Consuelo Mcghee MD [address] [id number] Ent - Syvitidjqddqiq48/25/24
--- OUTSIDE RECORDS SUMMARY | 2025-03-07 11:14 | XMS_ITS | CCD ---
Author Organization [facility] Care Team Providers Care Project Archivist Name Role Phone ELTAHAWY, EHAB A Admitting Unavailable ELTAHAWY, EHAB A Attending Unavailable DEMETRIUS COOPER Referring Unavailable DEMETRIUS COOPER Primary Care Unavailable Param Cosme Attending Provider Demetrius Cooper Primary Care Provider Param Cosme Attending Provider [phone] Demetrius Cooper Primary Care Provider [phone] Leti Garcia Unavailable MG LONDON Primary Care Physician KAT Westfall Attending Provider MD Mg [place] Primary Care Provider KAT Westfall Attending Provider MD Mg [place] Primary Care Provider [phone] MD Erwin Salazar Attending Provider Erwin Salazar Unavailable MARCE Hardy Attending Provider [phone] KAT Westfall Other Provider Demetrius Cooper Primary Care Physician Griselda Pennington Unavailable ALANNA HARDY Admitting Unavailable ALANNA HARDY Attending Unavailable GUERO, DR MG Omalley Primary Care Unavailable ANNAWAN, DR ERWIN Bell Consulting Unavailable ALANNA HARDY [...] NADERER, DR MG Omalley Primary Care Unavailable ANNAWAN, DR ERWIN Bell Consulting Unavailable ELTAHAWY, DR [...] Provider MD Demetrius Cooper Primary Care Provider [phone] MD Inez Henderson Attending Provider Esme Brunson NP Gisele Attending Provider FABIO Ruby Attending Provider Flori GARZA, [facility] Unavailable [phone] MD Demetrius Cooper Primary Care Provider DAISHA Brunson Gisele Attending Provider Clarissa Corado MD Unavailable [phone] Demetrius Cooper MD Primary Care Provider Flori GARZA, [facility] A. Unavailable MD Demetrius Cooper Primary Care Provider MD Luc Ham Jr Attending Provider Luc Guo MD Unavailable Demetrius Cooper MD Primary Care Provider LUC HAM Referring Unavaila ble DEMETRIUS COOPER E Primary Care Unavailable VAISHALI PRINGLE Attending Unavailable Unavailable Primary Care Provider UnavailDemetrius Davila MD Primary Care Provider Demetrius Cooper MD Primary Care Provider [phone] Talib Faustin MD Attending Provider Mary Schneider MD Referring Provider [phone] Demetrius Cooper MD Primary Care Provider Mary Schneider MD Referring Provider Dennis Gray MD Attending Provider Matteo Melo MD Attending Provider Demetrius Cooper MD Primary Care Provider [phone] Debora Wild APRN Attending Provider Mary Schneider [...] Unavailable Demetrius Cooper MD Primary Care Provider [phone] Matteo Melo MD Attending Provider Debora Wild APRN Attending Provider [phone] Dennis Gray MD Attending Provider Maru Ma DO Attending Provider Mary Schneider MD Referring Provider [phone] Talib Faustin MD Attending Provider Dennis Gray MD Attending Provider Pepito Galicia DO Attending Provider Dennis Gray MD Attending Provider Dennis Gray MD Attending Provider Mary Schneider MD Referring Provider Dennis Gray MD Attending Provider Mary Schneider MD Referring Provider [phone] Talib Faustin MD Attending Provider Louie Marrero DO Emergency Provider [phone] Jaiden Nance MD Admit Provider Jaiden Nance MD Attending Provider [phone] Yash Thomas MD Other Provider Zeke Brennan MD Attending Provider [phone] Demetrius Cooper MD Primary Care Provider Mary Schneider MD Referring Provider Talib Faustin MD Attending Provider Maru Hayes MD Emergency Provider Clarissa Corado MD Unavailable Demetrius Miller MD Primary Care Provider [phone] Matteo Melo MD Attending Provider Mary Schneider [...] Attending Provider Veena Ross DO Attending Provider [phone] Talib Faustin MD Attending Provider Mary Schneider MD Referring Provider Dennis Gray MD Attending Provider Inez Henderson Attending Unavaila ble Demetrius Cooper Attending Unavailable Demetrius Cooper Attending Unavailable Demetrius Cooper Attending Unavailable Demetrius Cooper Attending Unavailable Demetrius Cooper Attending Unavailable Ross, Demetrius E. Admitting Unavailable Ross, Demetrisu E. Attending Unavailable Demetrius Cooper MD Primary Care Provider Debora Wild APRN Attending Provider Debora Wild APRN Other Provider [phone] Becky Crouch APRN Attending Provider Mary Schneider MD Referring Provider MARY SCHNEIDER Attending Unavailable SCHNEIDER, MARY N [facility] Unavailable SCHNEIDER, MARY N Admitting Unavailable SCHNEIDER, MARY N Attending Unavailable [facility] Primary Care Unavailable SCHNEIDER, MARY N Admitting Unavailable SCHNEIDER MARY N Attending Unavailable [facility] Primary Care Unavailable SCHNEIDER, MARY N Referring Unavailable [facility] Primary Care Unavailable SCHNEIDER MARY N Attending Unavailable [facility] Primary Care Unavailable SCHNEIDER, MARY N Referring Unavailable [facility] Primary Care Unavailable SCHNEIDER, MARY N Attending Unavailable [facility] Primary Care Unavailable SCHNEIDER, MARY N Attending Unavailable [facility] Primary Care Unavailable Josh CASON, Clarissa Unavailable MATTEO AMBROSE Attending Unavailable DENNIS GRAY Referring [...] Allison CASON, Demetrius E Primary Care Provider Mary Schneider MD Referring [...] Care Unavailable Debora Wild M Admitting Unavailable Debora Wild Attending Unavailable Ross, Demetrius E Primary Care Unavailable Junito Debora M Admitting Unavailable Debora Wild Attending Unavailable Veena Ross Attending Unavailable Veena Ross Admitting Unavailable Ross, Demetrius E Primary Care Unavailable Unavailable Unavailable Unavailable Allergies Allergy ClassificationReported Allergen(s)Allergy TypeDate of OnsetReaction(s) Facility (3 sources)DesonideDrug Psvtwij02-33-7013Czl [facility] Repository (1 source)NiacinDrug Hadlcje87-83-9971[facility] Repository (20 sources)Adhesive agent; Translations: [adhesive]Drug iirnkgl17-99-3763xradUniversity Hospitals [facility] (20 sources)Niacin; Translations: [niacin]Drug Dghqgxi59-70-8001zgynl, Itching (finding), Itching, UnknownGeneral Surgery [facility]ector (20 sources)Adhesive bandage; Translations: [Adhesive Bandage]Allergy to substanceEruption of skin (disorder)General Surgery [facility] (5 sources)NiacinDrug AllergyhivesNort IkerChem Other (2 sources)Niaspan Starter PackDrug allergy (disorder)26-46-9438Dnm [facility] Repository (15 sources)Adhesive Tape-Silicones; Translations: [ADHESIVE TAPE-SILICONES]Drug Bnjkkhm23-90-2663LbbiHgzjcjgal Clinic (20 sources)NiacinDrug Pwoipgr23-28-1110Ohehfkf, [facility] (20 sources)Wound Dressing AdhesiveDrug Qfxmnbn42-69-0756MivojpnUCDN Healthcare (4 sources)Niacin; Translations: [Niaspan ER]Drug AllergyMer[facility] Rep[facility] (2 sources)NiacinDrug Nbjkwuf98-47-7845UpdfrqxdxAd[facility] Repository Medications Current Medications MedicationDrug Class(es)DatesSig (Normalized)Sig (Original)acetaminophen 325 mg / butalbital 50 mg / caffeine 40 mg oral capsule (20 sources)Barbiturate, Central Nervous System Stimulant, MethylxanthineStart: 36-35-4408uhhw 1 capsule by mouth every four hours for headacheEsgic 325 mg-50 mg-40 mg oral capsule 1 cap(s), Oral, q4hr for headache, 60 cap(s), Refill(s) 1, [id number], 160, cm, 11/29/23 10:29:00 EDT, Height/Length Dosing, 78.5, kg, 11/29/23 10:29:00 EDT, Weight Dosing Start Date: 11/29/23 Status: Ordered Quantity: 60.0 Unit: cap(s) Repeat number: 2Start: 12-15-2022 End: 87-94-6307ldfg 1 tablet by mouth every four hours as needed elliaytvdi-kfntjunlhnqau-avas 50-325-40 mg tablet Take 1 tablet by mouth every 4 hours if needed. 12/15/2022 ActiveStart: 38-75-3303RDNH/butalbital/caffeine 325 mg-50 mg-40 mg Tab Refill(s) 0, Headache Start Date: 12/15/22 Status: Ordered Comment on above:Take 1 tablet by mouth every 4 hours as needed.Albuterol (Eqv- ProAir HFA) 90 mcg/inh inhalation aerosol (16 sources)Start: 22-45-7653Kawdnozft (Eqv-ProAir HFA) 90 mcg/inh inhalation aerosol See Instructions, 17 gm, Refill(s) 6, USE 2 INHALATIONS BY MOUTH EVERY 6 HOURS, [facility] ([facility]), 163, cm, 11/04/22 15:03:00 EDT, Height/Length Dosing, 76, kg, 11/04/22 15:03:00 EDT, Weight Dosing Start Date: 11/09/22Status: Ordered Quantity: 17.0 Unit: g Repeat number: 1Start: 27-36-1608Kimtaqdus (Eqv-ProAir HFA) 90 mcg/inh inhalation aerosol See Instructions, 17 gm, Refill(s) 6, USE 2 INHALATIONS BY MOUTH EVERY 6 HOURS, [facility] ([facility]), 163, cm, 11/04/22 15:03:00 EDT, Height/Length Dosing, 76, kg, 11/04/22 15:03:00 EDT, Weight Dosing Start Date: 11/09/22Status: Ordered{1 (Ascorbic Acid 7540 MG / POLYETHYLENE GLYCOL 3350 27999 MG / Potassium Chloride 1200 MG / SodiumAscorbate 19652 MG / Sodium Chloride 3200 MG Powder for Oral Solution) / 1 (POLYETHYLENE GLYCOL 3350 888710 MG / Potassium Chloride 1000 MG / Sodium Chlori (5 sources)Osmotic Laxative, Vitamin CStart: 22-91-9987Tempdq oral powder for reconstitution See Instructions, 1 EA, Refill(s) 0, Prior to colonoscopy., [id number], 163, cm, 12/15/22 12:03:00 EDT, Height/Length Dosing, 73.3, kg, 12/16/2311:03:00 EDT, Weight Dosing Start Date: 12/15/22 Status: Ordered Aspir 81 (18 sources)Start: 70-82-7393zvxg 81 mg by mouth once dailyAspir 81 81 mg, Oral, Daily, Refills(s) 0, Prophylaxis Start Date: 04/24/20 Status: Ordered Repeat nu mber: 1Start: 57-85-4869tbgc 81 mg by mouth once dailyAspir 81 81 mg, Oral, Daily, Refills(s) 0, Prophylaxis Start Date: 04/24/20 Status: OrderedStart: 58-00-6201xnro 1 mg by mouth once dailyAspir 81 mg, Oral, Daily, Refills(s) 0, Prophylaxis Start Date: 04/24/20 Status: OrderedAspir-81 (5 sources)Aspir-81 Activeazithromycin 250 mg oral tablet (4 sources)Macrolide AntimicrobialStart: 24-45-4994Odsarelxkypm 250 MG 2 tablet on the first day, then 1 tablet daily for 4 days Orally Once a day for5 day(s) September, ActiveButalbital-Acetaminophen (5 sources)Butalbital-Acetaminophen Activecephalexin 250 mg oral capsule (1 source)Cephalosporin AntibacterialStart: 32-31-5142ekma 1 capsule by mouth twice dailyKeflex 250 mg Cap 250 mg = 1 cap(s), Oral, BID, Start 3 days before procedure, # 10 cap(s), Refills(s) 0, Pharmacy: [facility] #[id number], 167, cm, 04/27/22 8:46:00 EST, Height/Length Dosing, 87.1, kg, 04/27/22 8:46:00 EST, Weight Dosing Start Date: 04/27/22 Status: Orderedcholestyramine 4 g/5 g Oral Pwdr (1 source)Start: 66-36-3552nmohfteaivrclk 4 g/5 g Oral Pwdr 1 packet(s), Oral, TID, 90 EA, Refill(s) 0, [facility] ([facility] ), 167.6, cm, 08/24/22 8:10:00 EDT, Height/Length Dosing, 83.4, kg, 08/24/22 8:10:00 EDT, Weight Dosing Start Date: 08/24/22 Status: Orderedsugar-free cholestyramine resin 4000 mg powder for oral suspension (7 sources)Bile Acid SequestrantStart: 25-68-0711vrjzimwsppkmgj 4 g/5 g Oral Pwdr 5 gram, 1 EA, Oral, BID, 630 gm, Refill(s) 0, one scoop BID 90 daysupply, [facility] #[id number], 162, cm, 08/30/23 10:00:00 EDT, Height/Length Dosing, 78.4, kg, 08/30/23 10:00:00 EDT, Weight Dosing Start Date: 09/06/23 Status: OrderedStart: 05-25-2023 End: 70-83-7904ajgf 4 g by mouth once dailyQuestran 4 g/9 g oral powder 4 gm, Oral, Daily, X 90 day(s), # 90 packet(s), Refills(s) 0, Pharmacy: [facility] #[id number], 163, cm, 05/25/23 12:33:00 EST, Height/Length Dosing, 79.8, kg, 05/25/23 12:33:00 EST, Weight Dosing Start Date: 05/25/23 Stop Date: 08/23/23 Status: OrderedDicyclomine (3 sources)AnticholinergicDicyclomine HCl Guzxdd41 hr fentaNYL 0.012 mg/hr transdermal system (20 sources)Opioid AgonistStart: 20-00-7172xgkpoYUE 12 mcg/hr Transderm ER Film 1 patch(es), Topical, q72hr, Refill(s) 0 Start Date: 08/22/24 Status: Ordered Repeat number: 1Start: 08-02-2024 End: 50-10-2963Fjdglvmt 12 mcg/hr patch 72 hour Discontinued 1 PATCH TRANSDERML Every 72 hours 09 28August 16, 2024 September 11, 2024 10:11amStart: 06-05-2024 End: 68-54-2412lgkxftxumby, Once PRN Procedure, Starting on 06/05/24 at 1345, For 1 dose, Intraprocedureferrous sulfate 325 mg oral tablet (1 source)Start: 82-74-6775zyjm 1 tablet by mouth twice dailyFish Oils (7 sources)Start: 26-82-8157Ggupr-3 Fish Oil Oral, Daily, Refills(s) 0, Prophylaxis Start Date: 11/04/22 Status: OrderedStart: 29-95-0572Mgtgg-3 Fish Oil Oral, Daily, Refills(s) 0 Start Date: 11/04/22 Status: Orderedfluticasone 0.05 mg/inh Nasal [place] (1 source)Start: 66-48-5657xyffeumykko 0.05 mg/inh Nasal [place] Daily, Refill(s) 0 Start Date: 04/24/20 Status: Orderedgabapentin 600 mg oral tablet (20 sources)Anti-epileptic AgentStart: 09-36-9644ilaz 1 tablet by mouth three times dailygabapentin 600 mg Tab 600 mg, Oral, TID, # 270 EA, Refills(s) 0, Pharmacy: [facility], 163, cm, 02/25/23 13:29:00 EDT, Height/Length Dosing, 78.8, kg, 02/25/23 13:29:00 EDT, Weight Dosing Start Date: 03/09/23 Status: OrderedGabapentin 300 MG Oral for 90 ActiveComment on above:Take 1 tablet by mouth.glimepiride 2 mg oral tablet (6 sources)SulfonylureaStart: 16-96-2529larsclkpafu (AMARYL) 2 mg tablet Take 2 mg by mouth. 01/19/2019 ActiveComment on above:Take 2 mg by mouth. Hc/Dph/Nystat/[place]ido/[place] Monsalve (1 source)Start: 51-97-2076ykwm 10 mL by mouth four times daily as needed Hc/Dph/Nystat/[place] Monsalve Hc/Dph/Nystat/Lido/[place] Monsalve, Swish and swallow with 10ml by mouth four times daily as needed FOR mucositis Start Date: 08/22/24 Status: Ordered Repeat number: 1iv contrast (will be provided with radiology test) (3 sources)Start: 45-80-5406xa contrast (will be provided with radiology test) [...] 2 mg oral tablet (20 sources)Opioid AgonistStart: 71-55-5252bjha 1 tablet by mouth every four hoursloperamide [...] ActivemethylPREDNISolone 4 mg oral tablet (4 sources)CorticosteroidStart: 97-31-9038Snejkv 4 MG as directed Orally as directed for 6 days September, ActiveMisc Medication (6 sources)Start: 51-39-7141Mgop Medication Transdermal Therapeutics up to four times per day: Meloxicam 0.5%/ Doxepin 3%/ Amantidine 3%/Dextromethorphan 2%/ Lidocaine 2% Start Date: 11/08/23 Status: Ordered Repeat number: 1Start: 47-89-7682Ihkb Medication Transdermal Therapeutics up to four times [...] morning. ActiveMultivitamin (Multiple Vitamins) tablet (20 sources)Start: 92-52-4876xzrj 1 tablet by mouth once dailyStart: 06-14-2024 take 1 tablet by mouth once dailyMultivitamin (Multiple Vitamins) tablet Active 1 TAB PO Daily June 14, 2024 1:00amStart: 89-40-8807vyty 1 tablet by mouth once dailyMultivitamin (Multiple Vitamins) tablet Active 1 TAB PO Daily June 14, 2024 12:00amMultivitamin preparation (5 sources)Multivitamin Activemultivitamin tablet (7 sources)take 1 tablet by mouth once dailymultivitamin tablet Take 1 tablet by mouth once daily. ActiveMultivitamin, Therapeutic w/ Minerals (18 sources)Start: 64-28-5958Tinfxmpzlkfx, Therapeutic w/ Minerals Oral, Daily, Refill(s) 0, Prophylaxis Start Date: 04/24/20 Status: Ordered Repeat number: 1 Start: 40-29-1311Xxwpmukhhbrn, Therapeutic w/ Minerals Oral, Daily, Refill(s) 0, Prophylaxis Start Date: 04/24/20 Status: OrderedOmega 3 (5 sources)Winfred 3 Activeomega-3 acid ethyl esters (custodial) 1000 mg oral capsule (20 sources)take 1 capsule by mouth in the morningomega-3 acid ethyl esters (Lovaza) 1 g capsule Take 1 g by mouth in the morning and 1 g before bedtime. Activepantoprazole 20 mg delayed release oral tablet (7 sources)Proton Pump InhibitorStart: 57-63-2813zwhi 1 mg by mouth once daily Pantoprazole [address] Tab mg tab(s), Oral, Daily, Refills(s) 0 Start Date: 10/31/20 Status: OrderedPantoprazole Sodium Not-Taking/PRNPantoprazole Sodium Not-TakingPantoprazole Sodium Activepolyethylene glycol 3350 24381 mg powder for oral solution (8 sources)Osmotic LaxativeStart: 96-57-3292Azyycscts Chloride (10 sources)Start: 59-21-7173uyii 1 tablet by mouth twice dailyPotassium Chloride (Itb-Tcjt-Lzs M20) 20 mEq oral tablet, extended release TAKE 1 TABLET BY MOUTH TWICE DAILY Start Date: 08/30/24 Status: Ordered Repeat number: 1Start: 08-23-2024 End: 34-96-2805Vdqlpvvui Chloride (Klor-Con M20) 20 mEq tablet,ER particles/crystals Discontinued 20 MEQ PO Twice daily August 23, 2024 12:00am October 03, 2024 10:25amrimegepant 75 mg disintegrating oral tablet (20 sources)Start: 02-16-2024 End: 06-02-1837Mkwanzeaog Sulfate (Nurtec) 75 MG tablet dispersible Indications: Migraine without aura and withoutstatus migrainosus, not intractable 1 tab PO prn migraine. 16 tablet 2 02/16/2024 ActiveSenna Leaves (1 source)Start: 75-72-3282etqn 1 tablet by mouth twice daily as needed for constipationSenna 8.6 mg oral tablet TAKE 1 TABLET BY MOUTH TWICE DAILY NEEDED FOR CONSTIPATION Start Date: 08/22/24 Status: Ordered Repeat number: 1 Sennosides (Black-Draught Lax-Senna) 8.6 mg tablet (8 sources)Start: 02-63-1979wnsq 1 tablet by mouth once daily as needed for constipationSennosides (Black-Draught Lax-Senna) 8.6 mg tablet Active 8.6 MG PO Twice daily as needed for constipation 60 30 August 02, 2024 12:00am Use if no bowel movement dailysilver sulfADIAZINE 10 mg/ml topical cream (12 sources)Sulfonamide AntibacterialStart: 70-03-1976SOP 1% topical cream 1 lenin, Topical, BID, Refill(s) 0, apply to neck at affected areas Start Date: Status: Ordered Repeat number: 1Start: 08-18-2024 End: 38-70-2130Ikxste Sulfadiazine (Silvadene) 1 % cream Discontinued 1 APPLIC TOPICAL Twice daily August 18, 2024 12:00am October 03, 2024 10:25am Apply to open areas on radiation site, twice a day, until healed.traZODone hydrochloride 50 mg oral tablet (1 source)Serotonin Reuptake InhibitorStart: 00-55-7425osby 1 mg by mouth once daily at [...] Central Nervous System Stimulant, MethylxanthineStart: 06-14-2024 End: 33-22-0100iawh 1 tablet by mouth every four to six hours as needed Xmaehrx-Rnkrwrskdjbys-Pvnlonjq (Excedrin Migraine) 250-250-65 mg tablet Discontinued 1 TAB PO EVERY4-6 HOURS as needed July 20, 2024 1:00am July 26, 2024 8:40amacetaminophen 500 mg / diphenhydrAMINE hydrochloride 25 mg oral tablet (20 sources)Histamine-1 Receptor AntagonistStart: 06-14-2024 End: 69-90-2210sxlf 2 tablets by mouth once daily at bedtime as needed Diphenhydramine-Acetaminophen (Tylenol Pm Extra Strength) 25-500 mg tablet Discontinued 2 TAB PO Daily at bedtime as needed July 20, 2024 1:00am July 26, 2024 8:40amStart: 27-44-2400uqpj 1 tablet by mouth once daily at [...] oral tablet (20 sources)Opioid AgonistStart: 07-20-2024 End: 97-94-0051rtkg 1 tablet by mouth twice daily as neededHydrocodone- Acetaminophen 5-325 mg tablet Discontinued 1 TAB PO Twice daily as needed July 20, 2024 1:00am July 26, 2024 8:41amStart: 07-17-2024 End: 15-03-1637dhwj 1 tablet by mouth every twelve hours as needed for pain Hydrocodone-Acetaminophen 5-325 mg tablet Discontinued 1 TAB PO Every 12 hours as needed for pain July 17, 2024 August 09, 2024 9:28wb254 actuat albuterol 0.09 mg/actuat dry powder inhaler (20 sources)beta2-Adrenergic AgonistStart: 06-14-2024 End: 92-83-6482Fneivphvz Sulfate 90 mcg/actuation aerosol powdr breath activated Discontinued 1 INH INHALATION EVERY 4-6 HOURS as needed July 20, 2024 1:00am July 26, 2024 8:39amamLODIPine 5 mg oral tablet (20 sources)Dihydropyridine Calcium Channel BlockerStart: 04-24-2020 End: 01-76-5951ehsn 1 tablet by mouth once dailyAmlodipine 5 mg tablet Discontinued 5 MG PO Daily July 20, 2024 1:00am July 26, 2024 8:39amComment on above:Take 5 mg by mouth.aspirin 81 mg chewable tablet (20 sources)Platelet Aggregation Inhibitor, Nonsteroidal Anti-inflammatory Drug Start: 06-14-2024 End: 71-44-6990vhiq 1 tablet by mouth once dailyAspirin 81 mg tablet,chewable Discontinued 81 MG PO Daily July 20, 2024 1:00am July 26, 2024 8:39amtake 1 tablet by mouth once dailyaspirin 81 MG EC tablet Take 81 mg by mouth Daily ActiveComment on above:Take 81 mg by mouth.cefpodoxime 200 mg oral tablet (10 sources)Cephalosporin AntibacterialStart: 08-21-2024 End: 49-00-1325bhhh 1 tablet by mouth twice daily at mealtimeCefpodoxime 200 mg tablet Discontinued 200 MG PO Twice daily 6 August 21, 2024 12:00am October 03, 2024 10:22am must administer with a meal/foodclopidogrel 75 mg oral tablet (20 sources)P2Y12 Platelet InhibitorStart: 04-24-2020 End: 61-15-0167trbh 1 tablet by mouth once dailyClopidogrel (Plavix) 75 mg tablet Discontinued 75 MG PO Daily July 20, 2024 1:00am July 26, 2024 8:40amclotrimazole 10 mg oral lozenge (13 sources)Azole AntifungalStart: 08-03-2024 End: 25-32-0652Wqesfzrqwylf 10 mg joyce Discontinued 10 MG MUCOUS MEM Five times daily 70 14 August 03, 2024 12:00am August 17, 2024 11:32am use for 10 days, if symptoms persist, then complete the 14 days dispenseddexamethasone 6 mg oral tablet (6 sources)CorticosteroidStart: 56-72-5812ajpb 1 tablet by mouth every twenty- four hoursdexAMETHasone 6 MG 1 tablet Orally Once a day for 5 day(s) Nov, Not-Taking/PRNDocusate (5 sources)Docusate Sodium Not-Taking/PRNDocusate Sodium Not-TakingDocusate Sodium Activedorzolamide 20 mg/ml ophthalmic solution (20 sources)Carbonic Anhydrase InhibitorStart: 07-20-2024 End: 61-81-7947wkau 1 drop(s) into the eye(s) three times dailyDorzolamide 2 % drops Discontinued 1 DROPS EYE-BOTH Three times daily July 20, 2024 1:00am July 26, 2024 8:40amStart: 07-20-2024 End: 06-53-4521qvvx 1 drop(s) into the eye(s) three times dailyDorzolamide 2 % drops Discontinued 1 DROPS EYE-BOTH Three times daily July 20, 2024 1:00am July 26, 2024 8:40amStart: 48-60-5962vblm 1 drop(s) into the eye(s) three times dailydorzolamide (Trusopt) 2 % ophthalmic solution Administer 1 drop into both eyes 3 times a day. 07/27/2023 ActiveStart: 39-89-5574bccb 1 drop(s) into the eye(s) twice dailyStart: 59-94-8161Vfxcqsotkrc 2 % drops Active DROPS OPHTHALMIC July 26, 2023 11:00pmStart: 59-87-4508Beyemktiyga Active DROPS OPHTHALMIC July 27, 2023 12:00amStart: 56-69-7661jrdn 1 drop(s) into the eye(s) twice dailydorzolamide ophthalmic 2% solution 1 drop(s), OPTH, BID, Refill(s) 0, each eye Start Date: 04/24/20 Status: Ordered Repeat number: 1Start: 28-77-0633dbhy 1 drop(s) into the eye(s) twice dailydorzolamide [...] oral capsule (20 sources)Tetracycline-class DrugStart: 07-12-2024 End: 34-59-5040pnzy 1 capsule by mouth twice dailyDoxycycline Monohydrate 100 mg capsule Discontinued 100 MG PO Twice daily July 20, 2024 1:00am July 26, 2024 8:40amfamotidine 20 mg oral tablet (20 sources)Histamine-2 Receptor AntagonistStart: 07-27-2023 End: 57-68-8615fbqz 1 tablet by mouth once dailyFamotidine 20 mg tablet Discontinued 20 MG PO Daily July 20, 2024 1:00am July 26, 2024 8:41am fluticasone propionate 0.05 mg/actuat metered dose nasal spray (20 sources)CorticosteroidStart: 97-54-6388ewjnhcdeekw Nasal 0.05 mg/inh [place] See Instructions, 16 gm, Refill(s) 0, USE 1 SPRAY IN BOTH NOSTRILS TWICE DAILY, [facility], 160, cm, 01/10/24 9:43:00 EDT, Height/Length Dosing, 77.8, kg, 01/10/24 9:43:00 EDT, Weight Dosing Start Date: 01/18/24 Status: Ordered Quantity: 16.0 Unit: g Repeatnumber: 1Start: 08-24-2022 End: 12-78-1572pbwa 1 spray(s) nasal route once dailyFluticasone Propionate 50 mcg/actuation spray,suspension Discontinued 2 SPRAY INTRANASAL Daily July 20, 2024 1:00am July 26, 2024 8:41am administer into each nostrilStart: 40-09-4481gtwwrhglpxh (FLONASE) 50 mcg/actuation nasal spray 1 [place]. 08/24/2022 ActiveStart: 16-95-8362opqk 1 spray(s) nasal route twice dailyFlonase 0.05 mg/inh [place] 1 spray(s), Nasal, BID, 16 gram, Refill(s) 0, each nostril, [facility] ([facility] ), 167.6, cm, 08/24/22 8:10:00 EDT, Height/Length Dosing, 83.4, kg, 08/24/22 8:10:00 EDT, Weight Dosing Start Date: 08/24/22 Status: OrderedStart: 92-89-8100Pshzk: 85-82-2078mqgy 50 ug by inhalation twice dailyfluticasone propionate [...] MCG/ACT Nasal for 30 ActiveComment on above:1 [place].furosemide 20 mg oral tablet (20 sources)Loop DiureticStart: 04-24-2020 End: 11-56-8906ojbs 1 tablet by mouth once daily in the morningFurosemide 20 mg tablet Discontinued 20 MG PO Every morning July 20, 2024 1:00am July 2658:41amFurosemide ActiveComment on above:Take 20 mg by mouth.irbesartan 300 mg oral tablet (20 sources)Angiotensin 2 Receptor BlockerStart: 04-24-2020 End: 63-53-3342gynj 1 tablet by mouth once daily in the morningIrbesartan 300 mg tablet Discontinued 300 MG PO Every morning July 20, 2024 1:00am July 26, 2024 8:41amComment on above:Take 300 mg by mouth.24 hr isosorbide mononitrate 30 mg extended release oral tablet (20 sources)Nitrate VasodilatorStart: 08-23-0525xelk 1 tablet by mouth every twenty-four hoursIsosorbide Mononitrate 30 mg tablet extended release 24 hr Active MG PO July 26, 2023 11:00pmStart: 04-24-2020 End: 57-68-0386xzae 1 tablet by mouth once daily in the morning, then take 1 tablet by mouth every twenty-four hoursIsosorbide Mononitrate 30 mg tablet extended release 24 hr Discontinued 30 MG PO Every morning July 27, 2023 12:00am July 26, 2024 8:42amComment on above:Take 30 mg by mouth.lactulose 667 mg/ml oral solution (14 sources)Osmotic LaxativeStart: 08-02-2024 End: 18-51-9718ujxd 10 g by mouth once daily for constipationLactulose 10 gram/15 mL solution Discontinued 10 GM PO Daily as needed for constipation 450 30 August 02, 2024 12:00am August 20, 2024 6:06pm use everyday until you have a bowel movement daily.Start: 08-02-2024 End: 18-39-3554sjah 10 g by mouth once daily for constipationLactulose 10 gram/15 mL solution Discontinued 10 GM PO Daily as needed for constipation 450 30 August 02, 2024 12:00am August 20, 2024 6:06pm use everyday until you have a bowel movement daily.Start: 38-04-2745iifk 10 g by mouth once daily for constipationLactulose 10 gram/15 mL solution Active 10 GM PO Daily as needed for constipation 450 30 August 02, 2024 12:00am use everyday until you have a bowel movement daily.latanoprost 0.05 mg/ml ophthalmic solution (20 sources)Prostaglandin AnalogStart: 07-20-2024 End: 45-31-3606ddul 1 drop(s) into the eye(s) once daily in the evening Latanoprost 0.005 % drops Discontinued 1 DROPS EYE-BOTH Every evening July 20, 2024 1:00am July 26, 2024 8:42amStart: 87-40-8589rtpt 1 drop(s) into the eye(s) once dailyLatanoprost Active DROPS OPHTHALMIC Daily July 27, 2023 12:00amStart: 34-51-4407jfkdeajggjs Opth 0.005% Janee Refill(s) 0, 10 mL, 0 Refill(s) Start Date: 05/19/23 Status: Ordered Repeat number: 1Start: 05-19-2023 End: 14-81-2274wrnc 1 drop(s) into the eye(s) once daily in the evening Latanoprost 0.005 % drops Discontinued 1 DROPS EYE-BOTH Every evening July 20, 2024 1:00am July 26, 2024 8:42amStart: 50-63-7460enmvbxwlclp (Xalatan) 0.005 % ophthalmic solution Administer 1 drop into both eyes. 05/19/2023 ActiveStart: 03-96-5488qkcspcqwhtn ophthalmic qPM, Refill(s) 0, Dry eyes Start Date: 04/24/20 Status: OrderedStart: 32-33-9928tbbidobqekm ophthalmic qPM, Refill(s) 0 Start Date: 04/24/20 [...] (20 sources)Antiarrhythmic, Amide Local AnestheticStart: 07-20-2024 End: 58-84-3948Oeuhedtoo-Prilocaine 2.5-2.5 % cream Discontinued 2 GM TOPICAL as needed July 20, 2024 1:00am July 26, 2024 8:42amStart: 07-13-2024 End: 49-19-6774Nggyomkrz-Prilocaine 2.5-2.5 % cream Discontinued 2 GM TOPICAL Once as needed for pain July 13, 2024 2:08pm October 03, 2024 10:23am Apply 1 hour prior to accessing port.Magic Mouthwash W/Lidocaine 240 Ml Bottle 240 mL bottle (20 sources)Start: 08-23-2024 End: 20-43-6036liwf 10 mL by mouth four times daily as neededMagic Mouthwash W/Lidocaine 240 Ml Bottle 240 mL bottle Discontinued 10 ML PO Four times daily as needed for mucositis 240 August 23, 2024 10:14am October 03, 2024 10:23am Take 10ml by mouth, four times a day, as needed. [employer] SWALL[employer]. will call when they need refillStart: 84-77-7220lrge 10 mL by mouth four times daily as needed Magic Mouthwash W/Lidocaine 240 Ml Bottle 240 mL bottle Active 10 ML PO Four times daily as needed for mucositis 240 August 23, 2024 10:14am Take 10ml by mouth, four times a day, as needed. SWISH ANDSWALLOW. will call when they need refillStart: 07-20-2024 End: 21-37-4021wncd 1 mL by mouth four times daily as neededMagic Mouthwash W/Lidocaine 240 Ml Bottle 240 mL bottle Discontinued ML PO Four times daily as needed 240 July 20, 2024 1:00am July 26, 2024 8:42amStart: 07-19-2024 End: 97-42-6473awsy 10 mL by mouth four times daily [...] as needed. SWISH AND SWALLOW.Start: 07-06-2024 End: 41-08-9026pggt 10 mL by mouth four times daily as neededMagic Mouthwash W/Lidocaine 240 Ml Bottle 240 mL bottle Discontinued 10 ML PO Four times daily as needed for mucositis July 06, 2024 1:00am August 23, 2024 10:15am Take 10ml by mouth, four times a day, as needed. SWISH AND SWALLOW.Start: 94-68-3807frlj 10 mL by mouth four times daily as neededMagic Mouthwash W/Lidocaine 240 Ml Bottle 240 mL bottle Active 10 ML PO Four times daily as needed for mucositis 240 July 06, 2024 1:00am Take 10ml by mouth, four times a day, as needed. SWISH AND SWALLOW.Start: 62-47-0985jscw 10 mL by mouth four times daily as neededMagic Mouthwash W/Lidocaine 240 Ml Bottle 240 mL bottle Active 10 ML PO Four times daily as needed for mucositis 240 July 06, 2024 12:00am Take 10ml by mouth, four times a day, as needed. SWISHAND SWALLOW.metFORMIN hydrochloride 500 mg oral tablet (20 sources)BiguanideStart: 08-61-9087rhrq 1 tablet by mouth twice daily metFORMIN XR (Glucophage-XR) 500 MG 24 hr tablet Indications: Type 2 diabetes mellitus with hyperglycemia, without long-term current use of insulin ([facility]) TAKE 1 TABLET BY MOUTH TWICE DAILY 200 tablet2 05/01/2024 ActiveStart: 05-31-2023 End: 39-78-8521lotx 1 tablet by mouth once daily in the morningMetformin 500 mg tablet Discontinued 500 MG PO Every morning July 20, 2024 1:00am July 26, 2024 8:43amStart: 98-79-1268cupr 1 tablet by mouth twice dailymetFORMIN XR (Glucophage-XR) 500 MG 24 hr tablet Indications: Type 2 diabetes mellitus with hyperglycemia, without long-term current use of insulin ([facility]) TAKE 1 TABLET BY MOUTH TWICE DAILY 180 tablet 3 05/18/2023 ActiveStart: 20-48-7920iakb 1 mg by mouth twice dailymetformin 500 mg ER Tab mg tab(s), Oral, BID, Refills(s) 0, High blood sugar Start Date: 04/24/20 Status: Orderedtake 1 tablet by mouth once dailymetFORMIN XR 500 mg 24 hr tablet Take 1 tablet (500 mg) by mouth once daily. ActiveComment on above:Take 500 mg by mouth.5 ml midazolam 1 mg/ml injection (1 source)BenzodiazepineStart: 06-05-2024 End: 55-30-7944gzbcxclkvpy, Once PRN Procedure, Starting on Wed06/05/24 at 1345, For 1 dose, Intraproceduremometasone furoate 1 mg/ml topical cream (20 sources)CorticosteroidStart: 06-14-2024 End: 59-37-3042Ojtdkgduuz 0.1 % cream Discontinued 1 APPLIC TOPICAL Daily July 20, 2024 1:00am July 26, 2024 8:43amMultivitamin (One Daily Multivitamin) tablet (15 sources)Start: 07-20-2024 End: 63-31-0566ceam 1 tablet by mouth once dailyMultivitamin (One Daily Multivitamin) tablet Discontinued 1 TAB PO Daily July 20, 2024 1:00am July 26, 2024 8:43amnystatin 750180 unt oral tablet (20 sources)Polyene AntifungalStart: 08-17-2024 End: 37-24-0103tfuj 1 tablet by mouth four times dailyNystatin 500,000 unit tablet Discontinued [id number] UNIT PO Four times daily 40 September 14, 2024 9:24am November 23, 2024 10:01amStart: 08-02-2024 End: 24-30-4294Rgtsrhzg 100,000 unit/mL suspension Discontinued [id number] UNIT PO Four times daily 224 July 12:00am August 20, 2024 6:07pm administer 1/2 of dose in each side of the mouthNystatin 100,000 unit/mL suspension (8 sources)Start: 08-02-2024 End: 52-61-5386Whqocjhe 100,000 unit/mL suspension Discontinued [id number] UNIT PO Four times daily 224 July 12:00am August 20, 2024 6:07pm administer 1/2 of dose in each side of the mouthStart: 81-17-0160Bgmnxtzl 100,000 unit/mL suspension Active 970030 UNIT PO Four times daily 224 August 02, 2024 12:00am administer 1/2 of dose in each side of the mouthOLANZapine 2.5 mg oral tablet (20 sources)Atypical AntipsychoticStart: 08-09-2024 End: 46-11-7633aeuf 1 tablet by mouth twice dailyOlanzapine 2.5 mg tablet Discontinued 2.5 MG PO Twice daily August 09, 2024 12:00am November 23, 2024 10:02amtake 2 tablets by mouth at bedtimeOLANZapine (ZyPREXA) 2.5 MG tablet Take 5 mg by mouth at bedtime Activeomeprazole 40 mg delayed release oral capsule (20 sources)Proton Pump InhibitorStart: 08-24-2022 End: 31-87-0781alhi 1 capsule by mouth once daily in the morningOmeprazole 40 mg capsule,delayed release(DR/EC) Discontinued 40 MG PO Every morning July 2051:00am July 26, 2024 8:43amStart: 63-65-8780wuoakcqznu Oral, Daily, Refills(s) 0 Start Date: 04/27/22 Status: OrderedOmeprazole ActiveComment on above:Take 40 mg by mouth.ondansetron 4 mg disintegrating oral tablet (20 sources)Serotonin-3 Receptor AntagonistStart: 07-20-2024 End: 05-44-4967eqms 2 tablets by mouth every eight hoursOndansetron 4 mg tablet,disintegrating Discontinued 8 MG PO Every 8 hours July 20, 2024 1:00am July 26, 2024 8:43amStart: 07-95-4603lowg 1 tablet by mouth every eight hours as needed for nausea and vomitingoxyCODONE hydrochloride 1 mg/ml oral solution (20 sources)Opioid AgonistStart: 43-31-1974hmzj 7.5 mg by mouth every eight hours as needed for painoxycodone 5 mg/5 mL oral solution take 7.5 mg q 8 hrs as needed for pain, Refills(s) 0 Start Date: 08/22/24 Status: Ordered Repeat number: 1Start: 07-20-2024 End: 16-37-3197zozz 10 mg by mouth every four hours as needed for painOxycodone 5 mg/5 mL solution Discontinued 10 MG PO Every 4 hours as needed for pain 750 August 16, 2024 September 21, 2024 3:02pmStart: 07-19-2024 End: 09-16-9346cnqh 5 mg by mouth every four to six hours as neededOxycodone 5 mg/5 mL solution Discontinued 5 MG PO EVERY 4-6 HOURS as needed July 20, 2024 1:00am July 26, 2024 8:44amStart: 05-11-2024 End: 99-02-4761wdzq 1 tablet by mouth every six hours [...] mg oral tablet (20 sources)PhenothiazineStart: 06-14-2024 End: 41-79-9400wzjb 1 tablet by mouth every eight hours as needed Prochlorperazine Maleate (Compazine) 10 mg tablet Discontinued 10 MG PO Every 8 hours as needed July 20, 2024 1:00am July 26, 2024 8:44ampsyllium 400 mg oral capsule (20 sources)Start: 03-10-2023 End: 14-64-3657kotd 3 capsules by mouth once dailypsyllium (Metamucil) 3.4 gram packet Take 3 capsules by mouth once daily. 03/10/2023 12/13/2024 Discontinued (Med List Cleanup)Start: 03-10-2023 End: 24-32-4964Nhahuecw Husk (Fiber (Psyllium Husk)) 0.4 gram capsule Discontinued 0.4 GM PO Daily July 2051:00am July 26, 2024 8:44amStart: 10-54-8533cvra 3 capsules by mouth once dailypsyllium (Metamucil 3 in 1 Daily Fiber) 400 MG capsule Take 3 capsules by mouth Daily 03/10/2023 ActiveStart: 29-36-4453Lhxhhicmb Refills(s) 0, Constipation Start Date: 03/10/23 Status: OrderedStart: 34-75-8948Qkxqvyidm Refills(s) 0 Start Date: 03/10/23 Status: OrderedPsyllium Husk (Fiber (Psyllium Husk)) 0.4 gram capsule (20 sources)Start: 07-20-2024 End: 34-02-7380Dwyqwyke Husk (Fiber (Psyllium Husk)) 0.4 gram capsule Discontinued 0.4 GM PO Daily July 2051:00am July 26, 2024 8:44amStart: 06-22-2024 End: 15-41-7127Xfypfase Husk (Fiber (Psyllium Husk)) 0.4 gram capsule Discontinued 0.4 GM PO Daily June 22, 2024 1:00am August 20, 2024 6:08pm Start: 53-75-9197Qnrasung Husk (Fiber (Psyllium Husk)) 0.4 gram capsule Active 0.4 GM PO Daily June 22, 2024 1:00amStart: 56-34-3346Fxxmcdnc Husk (Fiber (Psyllium Husk)) 0.4 gram capsule Active 0.4 GM PO Daily June 22, 2024 12: 00amrosuvastatin calcium 10 mg oral tablet (20 sources)HMG-CoA Reductase InhibitorStart: 04-24-2020 End: 06-64-0066udzv 1 tablet by mouth once daily in the eveningRosuvastatin 10 mg tablet Discontinued 10 MG PO Every evening July 20, 2024 1:00am July 26, 2024 8:44amCrestor ActiveComment on above:Take 10 mg by mouth.sennosides, custodial 8.6 mg oral tablet (7 sources)Start: 08-02-2024 End: 43-64-1064zmmm 1 tablet by mouth once daily as needed for constipation Sennosides (Black-Draught Lax-Senna) 8.6 mg tablet Discontinued 8.6 MG PO Twice daily as needed forconstipation 60 August 02, 2024 12:00am November 23, 2024 10:02am Use if no bowel movement dailyStart: 05-11-2024 End: 58-36-9052zqpl 1 tablet by mouth once dailysennosides (Senokot) 8.6 mg tablet Indications: Acute postoperative pain Take 1 tablet (8.6 mg) by mouth once daily for 2 days. 2 tablet 05/11/2024 05/13/2024 Activesotalol hydrochloride 80 mg oral tablet (20 sources)AntiarrhythmicStart: 29-69-9451paulayi (Betapace) 80 mg tablet Take 1 half tablet by mouth 2 times a day. 07/27/2023 ActiveStart: 07-27-2023 End: 65-17-5793Xpmfdzl 80 mg tablet Discontinued 40 MG PO Twice daily July 20, 2024 1:00am July 26, 2024 8:44amStart: 95-87-2565gjkf 1 tablet by mouth once dailySotalol 80 mg tablet Active 80 MG PO Daily July 26, 2023 11:00pmStart: 89-11-1216vngx 0.5 tablet by mouth twice dailysotalol (Betapace) 80 mg tablet Take 0.5 tablets (40 mg) by mouth 2 times a day. 07/27/2023 ActiveComment on above:Take 80 mg by mouth.sucralfate 100 mg/ml oral suspension (20 sources)Aluminum ComplexStart: 09-14-2024 End: 14-21-1498dvns 1 mL by mouth three times dailySucralfate 100 mg/mL suspension Discontinued 10 ML PO Three times daily September 14, 2024 12:00am October 03, 2024 10:26amStart: 57-86-0391ruwpumlxzf (CARAFATE) 1 gram tablet Take 1 g by mouth. 12/15/2022 ActiveStart: 40-08-4406xtglwoinok 1 g Tab Refills(s) 0, Control of [...] (20 sources)Central alpha-2 Adrenergic AgonistStart: 07-20-2024 End: 60-96-1795wvwj 1 capsule by mouth once daily in the evening as needed Tizanidine 4 mg capsule Discontinued 4 MG PO Every evening as needed July 20, 2024 1:00am July 26, 2024 8:45amStart: 02-21-2021 End: 22-49-1162puop 1 tablet by mouth once daily in the eveningTizanidine 4 mg tablet Discontinued 4 MG PO Every evening July 27, 2023 12:00am November 29, 2024 11:34am End: 49-55-7629zxZDOlexpy HCl (ZANAFLEX) 4 mg capsule Take 4 mg by mouth. Active tiZANidine HCl ActiveComment on above:Take 4 mg by mouth.zonisamide 25 mg oral capsule (20 sources)Anti-epileptic AgentStart: 49-18-4511Ovosytvasi Active MG PO July 27, 2023 12:00amStart: 02-15-2023 End: 78-29-0404gdpe 1 capsule by mouth twice dailyZonisamide 25 mg capsule Discontinued 25 MG PO Twice daily July 20, 2024 1:00am July 26, 2024 8:45am Problems Active Problems Problem ClassificationProblemDateDocumented DateEpisodic/ChronicAortic; peripheral; and visceral artery aneurysms (20 sources)Ectasia of thoracic aorta; Translations: [Thoracic aortic ectasia] Onset: 761814-45-2058MrbyxwoSdqtofo on above:added per 11/05/2023 query response.Cancer of head and neck (20 sources)Malignant tumor of floor of mouth; Translations: [Malignant neoplasm of floor of mouth, unspecified]Onset: 939363-29-6506FnketapSnqgpf of prostate (20 sources)Malignant tumor of prostate; Translations: [Malignant neoplasm of prostate]Onset: 687111-61-6365EpaqavuAsthqp; other and unspecified primary (2 sources)History of malignant neoplasm of head and/or neck; Translations: [Personal history of malignant neoplasm of other organs and systems]09-11-2024 EpisodicCancer; other and unspecified primary (2 sources)Personal history of malignant neoplasm of other organs and systems; Translations: [Personal historyof malignant neoplasm of other organs and systems]Onset: 45-47-6570BfsmzrfkUxyojwb dysrhythmias (20 sources)Ventricular tachycardia; Translations: [Ventricular tachycardia] Onset: 911094-62-8359AegwcibJqcorzhxjssh of device; implant or graft (7 sources)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; Translations: [Atherosclerosis of coronary artery bypass graft(s) without angina pectoris]Onset: 903262-50-5958IwnpxbxIegsecqzxv associated with dizziness or vertigo (4 sources)Vertigo; Translations: [Dizziness and giddiness]62-35-0226Kdhysgnh Conduction disorders (20 sources)Cardiac pacemaker in situ; Translations: [Presence of cardiac pacemaker]Onset: 266598-74-6435IhassoyCnbqswtp atherosclerosis and other heart disease (20 sources)Coronary arteriosclerosis; Translations: [Atherosclerotic heart disease of elim ira coronary artery without angina pectoris]Onset: 01-20-2019 ChronicComment on above:noted in 11/10/2022 Cardiology Consult Note page 11. added per [facility] policy.Diabetes mellitus with complications (20 sources)Neuropathy due to diabetes mellitus; Translations: [Autonomic neuropathy due to type 2 diabetes mellitus]Onset: 062941-57-1637Nfejyra Diabetes mellitus without complication (20 sources)Diabetes mellitus; Translations: [Type 2 diabetes mellitus without complication]Onset: 982914-58-0577CioabbbUstlnje on above:linked DM with HLD per [facility]I policy.Disorders of lipid metabolism (20 sources)Hypercholesterolemia; Translations: [Pure hypercholesterolemia, unspecified]Onset: 602207-82-4119MbmylwfRsfytbqox of teeth and jaw (2 sources)Ulceration of gingivae; Translations: [Other specified disorders of gingiva and edentulous alveolarridge]15-51-5136RudxohsvIlzcbhvkgnuawc and diverticulitis (20 sources)Diverticular disease; Translations: [Diverticulosis of intestine, part unspecified, without perforation or abscess without bleeding]Onset: 819211-58-8347LodutqrCyyrbopxvz disorders (20 sources)Gastroesophageal reflux disease with apnea; Translations: [Gastro- esophageal reflux disease withoutesophagitis]Onset: 672514-09-5811Rrjbcsl Essential hypertension (20 sources)Hypertensive disorder; Translations: [Essential hypertension]Onset: 581975-02-4075MdmzmidErwwr of unknown origin (16 sources)Fever; Translations: [Fever, unspecified]92-54-0069Qackypyo Genitourinary symptoms and ill-defined conditions (1 source)Delay when starting to pass jiezi27-95-0935PyeyqbknDzzssffh (20 sources)Glaucoma; Translations: [Unspecified glaucoma]Onset: 04-03-2022 67-12-9440CiavbckWdohogtv; including migraine (20 sources)Migraine; Translations: [Migraine, unspecified, not intractable, without status migrainosus]Onset: 024535-86-2493JzkgngzDolay valve disorders (20 sources)Aortic valve regurgitation; Translations: [Nonrheumatic aortic (valve) insufficiency]Onset: 855297-78-9853RobxkqyQlyjpibm disorders (18 sources)Immunosuppression; Translations: [Immunodeficiency, unspecified] Onset: 244310-84-8898HpysdenEllikna on above:noted in 08/20/20[place] [facility] [place]. added per [facility] policy.Joint disorders and dislocations; trauma-related (20 sources)Derangement of right knee; Translations: [Unspecified internal derangement of right knee]Onset: 459117-67-0665MxlicyfGdfehdh (20 sources)Onychomycosis; Translations: [Tinea unguium]Onset: 01-27-2024 Resolved: 141247-72-7585CmuptluiHutaxtpef of unspecified nature or uncertain behavior (4 sources)Benign neoplasm of pancreas; Translations: [Neoplasm of unspecified behavior of digestive system]28-63-4340EhlhbxhoMrkrvuuupdu deficiencies (20 sources)Vitamin D deficiency; Translations: [Vitamin D deficiency, unspecified]Onset: 616749-65-9375UnqzfipOhxcjzihjvvyyq (20 sources)Osteoarthritis; Translations: [Arthritis of right ankle]Onset: 631820-99-4271CrxifjjGdzvz aftercare (1 source)Other termite helper (current) drug therapy; Translations: [OTH USP CURRENT DRUG THERAPY]Onset: 35-36-5578OfflkeqrQbven aftercare (1 source)intermodal dispatcher (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; Translations: [USP CURRENT USE OF ASPIRIN]Onset: 62-59-8063QyshnttyLpjvl aftercare (1 source)[facility] (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 of antithrombotics/antiplatelets; Translations: [USP ANTITHROMBOT/ANTIPLATLETS]Onset: 46-70-4701Tasqxbkl Other aftercare (1 source)intermodal dispatcher (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 of oral hypoglycemic drugs; Translations: [USP USE ORAL HYPOGLYCEMIC DX]Onset: 91-81-1872DopvddozOhvcw aftercare (19 sources)Patient encounter status; Translations: [Encounter for palliative care]36-19-0444QueviqtjVzqbu bone disease and musculoskeletal deformities (20 sources)Osteochondritis dissecans of right ankle; Translations: [Osteochondritis dissecans, right ankle andjoints of right foot]Onset: 857448-80-7094PwwcuwfWoaey circulatory disease (1 source)Raynaud's syndrome without gangrene; Translations: [RAYNAUDS SYNDROME WITHOUT GANGRENE]Onset: 50-14-2843UrymvztAlpze ear and sense organ disorders (20 sources)Hearing loss; Translations: [Unspecified hearing loss, unspecified ear]Onset: 361749-29-4862EryxkujWhakj ear and sense organ disorders (2 sources)Sensorineural hearing loss, bilateral; Translations: [Sensorineural hearing loss, bilateral]47-13-1867YzdmgdqTgnql ear and sense organ disorders (1 source)Impacted cerumen, bilateral; Translations: [Impacted cerumen] 19-84-7675LzptrsksRchna ear and sense organ disorders (2 sources)Bilateral tinnitus; Translations: [Tinnitus, bilateral]06-23-2024 EpisodicOther gastrointestinal disorders (1 source)Intestinal malabsorption; 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]Onset: 26-69-1980UgsuhonEuogd gastrointestinal disorders (20 sources)Non-infective diarrhea; 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]Onset: 125571-47-8457MmxcngvDvkfz gastrointestinal disorders (1 source)Gastrostomy present; Translations: [Gastrostomy status]12-13-2024 ChronicOther gastrointestinal disorders (2 sources)Gastrostomy status; Translations: [Gastrostomy status (Multi)]Onset: 74-07-2877AafmymiJxchr gastrointestinal disorders (1 source)Tlbtpeucy36-96-3055MxycngmiCputu gastrointestinal disorders (6 sources)Hard qhitm34-58-8108LatchnwyTbtwr gastrointestinal disorders (1 source)Digestive system finding; Translations: [Other specified symptoms and signs involving the digestivesystem and abdomen]Onset: 28-15-5831IfdsjkhfTlnrx gastrointestinal disorders (2 sources)Abnormal feces; Translations: [Other fecal abnormalities]Onset: 55-06-5082RvpdszenVpsqh gastrointestinal disorders (3 sources)Loose zjuor58-64-0888TirhdcxiYxtdg gastrointestinal disorders (1 source)Non-infective -87-8022MdtkzaeqSpbcz gastrointestinal disorders (3 sources)Swollen abdomen; Translations: [Abdominal distension (gaseous)]Onset: 68-52-2817PiqabtugDhihz gastrointestinal disorders (9 sources)Upvieqyf64-36-4761NzfwudmcNzxbi gastrointestinal disorders (20 sources)Constipation; Translations: [Constipation, unspecified]08-02-2024 EpisodicComment on above:Secondary to opioids, and decreased oral intakeOther gastrointestinal disorders (1 source)Therapeutic opioid induced pobxnueqzqbx32-37-9835ZjocsgmjAinjmbo on above:noted in 08/16/2024 Palliative Care Consult Note page 5. added per [facility] policy.Other gastrointestinal disorders (7 sources)Esophageal dysphagia; Translations: [Other dysphagia]09-27-2024 EpisodicOther lower respiratory disease (3 sources)Apnea, not elsewhere classifiedEpisodicOther lower respiratory disease (8 sources)Nodule of lung; Translations: [Solitary pulmonary nodule]09-20-2024 EpisodicOther nervous system disorders (20 sources)Polyneuropathy associated with another disorder; Translations: [Polyneuropathy in diseases classified elsewhere]Onset: 660694-18-9910 ChronicOther nervous system disorders (1 source)Polyneuropathy in diseases classified elsewhereChronicOther nervous system disorders (1 source)Other chronic pain; Translations: [OTHER CHRONIC PAIN]Onset: 88-68-9937HborgzmZlefo nervous system disorders (20 sources)Carpal tunnel syndrome of left wrist; Translations: [Carpal tunnel syndrome, left upper limb]Onset: 134687-51-9867LycnsfzKaqll nervous system disorders (20 sources)Carpal tunnel syndrome of right wrist; Translations: [Carpal tunnel syndrome, right upper limb]Onset: 270053-16-8162KwezyxsCymhr nervous system disorders (20 sources)Neuropathy; Translations: [Polyneuropathy, unspecified]Onset: 245851-94-4339CscenytBtsmp nervous system disorders (20 sources)Normal pressure hydrocephalus; Translations: [(Idiopathic) normal pressure hydrocephalus]Onset: 514524-38-4018HlsqloaFbpyy nervous system disorders (4 sources)Polyneuropathy; Translations: [Polyneuropathy, unspecified]02-16-2024 ChronicOther nervous system disorders (20 sources)Pain due to neoplastic disease; Translations: [Neoplasm related pain (acute) (chronic)]57-35-8336TntsbkuBhjmncy on above:Jeremie reports increasing severity of throat [...] (chronic); Translations: [Neoplasm related pain (acute) (chronic)]Onset: 483275-80-5001HiafrjeXoden nervous system disorders (17 sources)Numbness of qqle17-47-4090MhsippxvArllu nervous system disorders (17 sources)Acute postoperative pain; Translations: [Other acute postprocedural pain]55-10-9382YsabvsikLpuvf nervous system disorders (1 source)Other acute postprocedural pain; Translations: [Other acute postprocedural pain]Onset: 75-52-6201FpfsikheLvsrv non-traumatic joint disorders (4 sources)Other instability, right ankle; Translations: [OTHER INSTABILITY RIGHT ANKLE]Onset: 29-10-0958XtllzgedHxrgl nutritional; endocrine; and metabolic disorders (1 source)Body mass index 25-29 - rezjnrpcmp69-99-3950KfyzycptKmwwk screening for suspected conditions (not mental disorders or infectious disease) (1 source)Screening for malignant neoplasm of colon done; Translations: [Encounter for screening for malignant neoplasm of colon]Onset: 02-25-2023 EpisodicOther upper respiratory infections (1 source)Acute upper respiratory infection, unspecified; Translations: [Acute upper respiratory infections of unspecified site]30-99-0287BiewniueCdapjstjd; thrombophlebitis and thromboembolism (1 source)Personal history of other venous thrombosis and embolism; Translations: [PERS HX OTH VENOUS THROMBOSIS AND EMBO]Onset: 53-38-8220Fkvthlqp Pneumonia (except that caused by tuberculosis or sexually transmitted disease) (1 source)Pneumonia (except that caused by tuberculosis or sexually transmitted disease); Translations: [PNEUMONIA D/T CORONAVIRUS DIS 2019]Onset: 09-28-2022 Residual codes; unclassified (18 sources)Sleep qbvvi35-95-4773BvrdbmzAweqwplx codes; unclassified (20 sources)Obstructive sleep apnea syndrome; Translations: [Obstructive sleep apnea (adult) (pediatric)]Onset: 962804-48-9104TevhysoJmeqnbol codes; unclassified (20 sources)Daytime somnolence; Translations: [Other hypersomnia]Onset: 216514-78-4872PigutrqDfxakima codes; unclassified (8 sources)Obstructive sleep apnea (adult) (pediatric); Translations: [Obstructive sleep apnea (adult)(pediatric)]ChronicResidual codes; unclassified (2 sources)Other hypersomnia; Translations: [Excessive daytime sleepiness] ChronicResidual codes; unclassified (1 source)Sleep apnea, unspecified; Translations: [SLEEP APNEA UNSPECIFIED] Onset: 66-01-2123ZgfokmtImzinlba codes; unclassified (20 sources)Central sleep apnea syndrome; 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]Onset: 967259-58-6455KlyqdriTzyuxops codes; unclassified (4 sources)Primary central sleep apnea; Translations: [Unspecified sleep apnea] 39-10-1856XdrjhexXevehlrz codes; unclassified (1 source)Acquired absence of other genital organ(s); Translations: [ACQUIRED ABSENCE OTH GENITAL ORGANS]Onset: 44-15-7107UdchigusKjdcnqqd codes; unclassified (1 source)At risk for imbalanced nutrition, less than body requirements; Translations: [Other specified personal risk factors, not elsewhere classified] 59-52-1737VxiugoaqEkzodtcf codes; unclassified (2 sources)Other specified personal risk factors, not elsewhere classified; Translations: [Other specified personal risk factors, not elsewhere classified] Onset: 18-82-2618HypcrpqcNipsjjjkj and history of mental health and substance abuse codes (1 source)Bn-rqifnu24-80farpjs80-33-0112PpatxqpqGkroojnzs malignancies (2 sources)Secondary malignant neoplasm of neck; Translations: [Secondary malignant neoplasm of other specified sites]32-08-2281LpimeakBdotfbzkn malignancies (3 sources)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 and neck lymph node; Translations: [Secondary and unspecified malignant neoplasmof lymph nodes of head, face and neck]03-29-2024 ChronicSecondary malignancies (2 sources)Secondary malignant neoplasm of lymph nodes of neck; Translations: [Secondary and unspecified malignant neoplasm of lymph nodes of head, face and neck]16-52-7439WabakqdMceuwgp on above:noted in 08/21/2024 [facility] [place] 2. added per OP CDI policy.Secondary malignancies (2 sources)Secondary and unspecified malignant neoplasm of lymph nodes of head, face and neck; Translations: [Secondary and unspecified malignant neoplasm of lymph nodes of head, face and neck]Onset: 52-90-7206JrvauuiBjjlaswqoxr; intervertebral disc disorders; other back problems (20 sources)Spondylosis without myelopathy or radiculopathy, lumbar region; Translations: [Other intervertebraldisc degeneration, lumbar region]Onset: 00-91-2923SnxjepuSibfqou on above:noted in 09/15/2023 Pain Management Consult note page 5. added per OP CDI policy.Substance-related disorders (20 sources)Hypnotic dependence; Translations: [Sedative, hypnotic or anxiolytic dependence, uncomplicated]Onset: 01-27-2024 Resolved: 96-76-4339GbpiowcQveybefiqgov (4 sources)LOW BACK PAIN, UNSPECIFIED; Translations: [LOW BACK PAIN, UNSPECIFIED]Onset: 74-68-6526Ntsjnfdrzwzm (8 sources)Patient encounter pyluvd11-34-5826Oqntvmoloubm (4 sources)A [facility] screening has identified you [...] Ways to Beat the Frailty Risk https://[email or web address]-joa-dgnwxgxnnt/agfz-gslhjk-ijbn- osvk-zu-yoqe-the-fra ycxu-jsgb62-95wvtw26-49-7856Mrbzikstafab (1 source)Mild pulmonary btyfoblztzej37-06-7331Yzctfre on above:added per 08/23/2024 query response.Unclassified (10 sources)Resume your Plavix tomorrowUnclassified (1 source)C10.9 - Malignant neoplasm of oropharynx, unspecifiedUrinary tract infections (1 source)Urinary tract infectious tmwkumv80-53-5740YhpsproeHenpf infection (10 sources)Disease caused by 2019-nCoV; Translations: [COVID-19]Onset: 09-22-2022 Past or Other Problems Problem ClassificationProblemDateDocumented DateEpisodic/ChronicAbdominal pain (20 sources)Lower abdominal pain; Translations: [Right flank pain]Onset: 04-03-2022 Resolved: 472552-67-8913BoebbxhiVdyoypf tract disease (20 sources)Gallstone; Translations: [Calculus of gallbladder without cholecystitis without obstruction]Onset: 04-03-2022 Resolved: 320854-10-7592AojbhqwzTmuwdw of prostate (20 sources)History of malignant neoplasm of prostate; Translations: [Personal history of malignant neoplasm ofprostate]Onset: 488203-62-2700Kqhqqppu Coronary atherosclerosis and other heart disease (7 sources)Stented coronary artery; Translations: [Presence of coronary angioplasty implant and graft]Onset: 214526-87-2050CrbvguwdXetexfuy of mouth; excluding dental (14 sources)Ulcer of mouth; Translations: [Other forms of stomatitis]Onset: 514000-77-6398ZucnwuqiSegymhnashtlgm ulcer (except hemorrhage) (20 sources)Peptic ulcer; Translations: [Peptic ulcer, site unspecified, unspecified as acute or chronic, without hemorrhage or perforation]Onset: 04-03-2022 Resolved: 465061-54-2948GxfqnrdMvktcxwfmoigs symptoms and ill-defined conditions (20 sources)Incontinence; Translations: [Incontinence without sensory awareness] Onset: 01-27-2024 Resolved: 984195-23-2072AgoabuaLzqwrrbesri (20 sources)Hemorrhoids; Translations: [Unspecified hemorrhoids]Onset: 237271-98-5493VrhpahosGwuvicutknrh conditions of male genital organs (20 sources)Prostatitis; Translations: [Inflammatory disease of prostate, unspecified]Onset: 379427-80-8046BawrqihnVfykmpidvbdyi (20 sources)Lymphadenopathy; Translations: [Cervical lymphadenopathy]Onset: 683247-96-2320RoxqvcskHlcifb and vomiting (20 sources)Nausea; Translations: [Nausea]Onset: 462094-21-6811Muhrubmj Comment on above:noted in 08/16/2024 Palliative Care Consult Note page 5. added per OP CDI policy.Nonspecific chest pain (20 sources)Chest wall pain; Translations: [Other chest pain]Onset: 04-03-2022 Resolved: 215359-09-9437NksokhtlEmjvq aftercare (6 sources)Encounter for palliative care; Translations: [Encounter for palliative care]Onset: 657569-80-6693ItyzyootCdthg and unspecified benign neoplasm (20 sources)History of polyp of colon; Translations: [Personal history of colonic polyps]Onset: 91-42-6127KizelyinUzgzw and unspecified benign neoplasm (20 sources)Polyp of colon; Translations: [Polyp of colon]Onset: 01-27-2024 42-04-2628LolruqqaQuymy connective tissue disease (2 sources)Pain in left finger(s); Translations: [PAIN IN LEFT FINGERS]Onset: 11-29-2021 Resolved: 20-37-4964ByrssjswWazzr connective tissue disease (4 sources)Pain in right foot; Translations: [PAIN IN RIGHT FOOT]Onset: 03-13-5588DcrnskjlMpbrc connective tissue disease (3 sources)Pain in arm, unspecified; Translations: [PAIN IN ARM UNSPECIFIED] Onset: 69-55-0908PbnihasvZgums connective tissue disease (1 source)Pain in left upper arm; Translations: [PAIN IN LEFT UPPER ARM]Onset: 80-45-7314FvjajuzbOrnfc connective tissue disease (1 source)Pain in right upper arm; Translations: [PAIN IN RIGHT UPPER ARM]Onset: 05-65-1287OipwkkqwUjvbe connective tissue disease (20 sources)Disorder of musculoskeletal system; Translations: [Other specified disorders of synovium, right ankle and foot]Onset: 825818-73-1497Ojpvzerm Other connective tissue disease (20 sources)Pain in limb; Translations: [Pain in unspecified limb]Onset: 01-27-2024 Resolved: 664172-13-3944OxbllxeyRweou diseases of veins and lymphatics (20 sources)Peripheral venous insufficiency; Translations: [Venous insufficiency (chronic) (peripheral)]Onset: 033774-58-7329XkccmaudZxasb gastrointestinal disorders (4 sources)Diarrhea, unspecified; Translations: [DIARRHEA UNSPECIFIED]Onset: 76-98-9750AtzllgbwViwik gastrointestinal disorders (20 sources)Dysphagia; Translations: [Dysphagia, unspecified]Onset: 01-12-2023 09-72-4107VdzkkrqcLybal gastrointestinal disorders (20 sources)Urgent desire for stool; Translations: [Fecal urgency]Onset: 01-12-2023 Resolved: 088999-96-2440LmgrgocoCppcu gastrointestinal disorders (20 sources)Irregular bowel habits; Translations: [Other specified symptoms and signs involving the digestive system and abdomen]Onset: EpisodicOther gastrointestinal disorders (20 sources)Abdominal bloating; Translations: [Abdominal distension (gaseous)] Onset: 01-27-2024 Resolved: 895190-27-7837UohyodywOxaxn gastrointestinal disorders (20 sources)Smearing feces; Translations: [Fecal smearing]Onset: 04-03-2022 Resolved: 531333-09-9155VyrikbinGqsyd gastrointestinal disorders (20 sources)Constipation, unspecified; Translations: [Constipation, unspecified] Onset: 965982-43-5702KlouiwlfLqzam gastrointestinal disorders (1 source)Dysphagia, unspecified; Translations: [Dysphagia, unspecified]Onset: 34-48-1274LfuwhifyTzxys nervous system disorders (20 sources)Entrapment of left ulnar nerve; Translations: [Lesion of ulnar nerve, left upper limb]Onset: 01-27-2024 Resolved: 421151-85-6606HqygjxmRsevi nervous system disorders (20 sources)Entrapment of right ulnar nerve; Translations: [Lesion of ulnar nerve, right upper limb]Onset: 01-27-2024 Resolved: 996462-14-0048JmjcfutAkzzw nervous system disorders (1 source)Unspecified disturbances of skin sensation; Translations: [UNS DISTURBANCES OF SKIN SENSATION]Onset: 24-80-8107HyndkkjoYtbcp nervous system disorders (20 sources)Paresthesia of skin; Translations: [Disturbance of skin sensation] Onset: 559083-54-3227VooovuriVwiej nervous system disorders (20 sources)Unsteady when standing; Translations: [Unsteadiness on feet]Onset: 01-27-2024 Resolved: 332350-21-3715CfhuddrjYsohr non-epithelial cancer of skin (20 sources)Malignant neoplasm of skin; Translations: [Unspecified malignant neoplasm of skin, unspecified]Onset: 464487-45-7038HhdqrfuwQcoby non- traumatic joint disorders (20 sources)Arthralgia of the ankle and/or foot; Translations: [Pain in right ankle and joints of right foot]Onset: 549199-58-5580SifvylrmIkhym nutritional; endocrine; and metabolic disorders (20 sources)Body mass index 30+ - obesity; Translations: [Obesity, unspecified] Onset: 04-03-2022 Resolved: 708748-48-8442LjdffmyQyfuh nutritional; endocrine; and metabolic disorders (20 sources)Overweight in adulthood with body mass index of 25 or more but less than 30; Translations: [Body mass index (BMI) 29.0-29.9, adult]Onset: 01-27-2024 60-70-7417SvbvgudeHptyy skin disorders (4 sources)Nail dystrophy; Translations: [NAIL DYSTROPHY]Onset: 06-11-2022 EpisodicOther skin disorders (1 source)Other nail disorders; Translations: [OTHER NAIL DISORDERS]Onset: 60-32-3077ZfhwneqrNivhm skin disorders (20 sources)Mass of neck; Translations: [Localized swelling, mass and lump, neck]Onset: 810709-17-8652AncruxnrTdpnsj media and related conditions (20 sources)Otitis media; Translations: [Otitis media, unspecified, unspecified ear]Onset: 04-14-2023 Resolved: 815882-05-7887JxxxnjakOdctemalmj disorders (not diabetes) (20 sources)Cyst of pancreas; Translations: [Cyst of pancreas]Onset: 01-12-2023 EpisodicPneumonia (except that caused by tuberculosis or sexually transmitted disease) (17 sources)Pneumonia; Translations: [Pneumonia, unspecified organism]Onset: 321088-88-2918WufbbkvtQiyctjpw codes; unclassified (20 sources)FH: Stomach cancer; Translations: [Family history of malignant neoplasm of digestive organs]Onset: 744537-64-8501UgcmobcrOdcsustp codes; unclassified (20 sources)Insomnia; Translations: [Insomnia, unspecified]Onset: 04-03-2022 97-15-7259UrdtaofbToqhyiqp codes; unclassified (20 sources)Edema of lower extremity; Translations: [Localized edema]Onset: 910563-41-6916OykhthttIhmxmopy codes; unclassified (19 sources)Difficult venous access; Translations: [Other specified health status]Onset: 646735-32-8766QsivftwiWclj and subcutaneous tissue infections (20 sources)Cellulitis of left toe; Translations: [Cellulitis and abscess of toe, unspecified]Onset: 01-27-2024 Resolved: 856961-92-4082PtdijixpIukanyjrfhg; intervertebral disc disorders; other back problems (20 sources)Muscle spasm of back; Translations: [Radiculopathy, cervical region] Onset: 87-01-6384DikeglxeDqluntkqqazu (1 source)Paroxysmal ventricular tachycardia I47.29Unclassified (1 source)Acute cough R05.1Unclassified (1 source)LOW BACK PAIN, UNSPECIFIED; Translations: [LOW BACK PAIN, UNSPECIFIED] Onset: 20-47-8933Lgabmkuaatwb (7 sources)Onset: 04-07-2024 Resolved: Viral infection (20 sources)Disease caused by 2019-nCoV; Translations: [COVID-19]Onset: 11-10-2022 Resolved: 729682-20-7021Gxcmuvqz Results Test NameValueInterpretationReference RangeFacilityOrders Onlyon 02-06-2025 Orders [id number] Jeremie Bennett 1940 M Date Provider Department Center 02/06/2025 STACEY ERNANDEZ [facility] Family History Problem Relation Age of Onset Coronary artery disease Mother Kidney disease Mother Heart failure Mother Family Status - Relation Status Age at Mother Father DeceasedNormalUniParkview HealthOffice Visiton 02-18-2855Wnkodt-up [id number] Jeremie Bennett 1940 M Date Provider Department Center 12/05/2024 STACEY ERNANDEZ [facility] Family History Problem Relation Age of Onset Coronary artery disease Mother Kidney disease Mother Heart failure Mother Family Status - Relation Status Age at Mother Father Level of Service:[address]01 [place] OFFICE/OUTPATIENT ESTABLISHED LOW [facility]24 Ambulatory Visit SummaryAmbulatory Visit [...] Film) fluticasone nasal (fluticasone Nasal 0.05 mg/inh [place]) furosemide (furosemide 20 mg Tab) irbesartan (irbesartan [...] fluticasone nasal (fluticasone Nasal 0.05 mg/ inh [place]) See instructions USE 1 SPRAY IN BOTH [...] to opioid therapy Coronary artery disease involving elim 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 [place] Advance Directives reviewed, present at home. Encouraged [...] maintain a healthy weight. (more content not included)...[facility] HospitalComment on above:Result Comment: Electronically Signed By: MARICRUZ TREVINO CNP\.br\Date and Time Signed: 11/21/24 16:03 EDT\.br\Electronically Co-Signed By: Monse Puckett\.br\Date and Time Co-Signed: 11/21/24 14:59EDT Alanine aminotransferase [Enzymatic activity/volume] in Serum or PlasmaOrdered By: Elif Carroll on 04-86-6501JJE [Catalytic activity/Vol]14 U/LNormal7-52 [facility] CenterComment on above:Performed By: #### MG, SCAN CBC, CMP #### [facility] [address] [place] [address] USAAlbumin [Mass/volume] in Serum or Plasma by Bromocresol green (BCG) dye binding methoOrdered By: Elif Carroll on 27-66-2253Sxlhono BCG dye [Mass/Vol]4.2 g/dL3.5-5.7FHarrison Community HospitalAlkaline phosphatase [Enzymatic activity/volume] in Serum or PlasmaOrdered By: Elif Carroll on 30-08-6316CCH [Catalytic activity/Vol]80 U/TYhajfr86-415SadpksqtxAdams County Regional Medical CenterComment on above:Performed By: #### MG, SCAN CBC, CMP #### [facility] [address] [place] [address] USAAspartate aminotransferase [Enzymatic activity/volume] in Serum or PlasmaOrdered By: Elif Carroll on 12-60-7372XWO [Catalytic activity/Vol]15 U/XOzecwn52-60OdempuyfqAdams County Regional Medical CenterComment on above: Performed By: #### MG, SCAN CBC, CMP #### [facility] [address] [place] [address] USABasophils [#/volume] in Blood by Automated countOrdered By: Elif Carroll on 23-15-8691Bnuqkhawj (Bld) [#/Vol]0.0 10*3/uLNormal0.0-0.2 [facility] CenterComment on above:Performed By: #### MG, SCAN CBC, CMP #### [facility] [address] [place] [address] USABasophils/100 leukocytes in Blood by Automated count Ordered By: Elif Carroll on 12-76-9206Qdktzedlr/100 WBC (Bld)0.5 %Normal. [facility] CenterComment on above:Performed By: #### MG, SCAN CBC, CMP #### [facility] [address] [place] [address] USABilirubin.total [Mass/volume] in Serum or PlasmaOrdered By: Elif Carroll on 76-58-9328Tkqxttdqh [Mass/Vol]0.4 mg/dLNormal0.3-1.0 [facility] CenterComment on above:Performed By: #### MG, SCAN CBC, CMP #### [facility] [address] [place] [address] USACalcium [Mass/volume] in Serum or PlasmaOrdered By: Elif Carroll on 76-53-8077Syjdcuh [Mass/Vol]9.3 mg/dLNormal8.6-10.3FHarrison Community HospitalComment on above:Performed By: #### MG, SCAN CBC, CMP #### [facility] [address] [place] [address] USACapillary blood glucose measurement by glucometer (mass/volume)Ordered By: Talib Faustin on 40-24-4755Haxwffa [Mass/Vol]114 mg/dL NormalAdams County Regional Medical CenterComment on above:Random Glucose Reference Range is dependent [...] the diagnosis of Diabetes Mellitus. PERFORMED BY: [place] [address] PATHOLOGIST PERSONAL CARE AID AD ROSENBAUM M.D.Performed By: #### GLULS #### Point of Care testing ,Carbon dioxide, total [Moles/volume] in Serum or PlasmaOrdered By: Elif Carroll on 84-58-7032KH9 [Moles/Vol]26.6 mmol/KUbpyfg07.0-31.0[facility] CenterComment on above:Performed By: #### MG, SCAN CBC, CMP #### [facility] [address] [place] [address] USAChloride [Moles/volume] in Serum or PlasmaOrdered By: Elif Carroll on 99-28-6145Ayhlwalf [Moles/Vol]104 mmol/ELpoxjo61-023DdncxxhypAdams County Regional Medical CenterComment on above:Performed By: #### MG, SCAN CBC, CMP #### [facility] [address] [place] [address] USAComprehensive Metabolic Panelon 94-18-3927Ssayijw [Mass/Vol]4.2 g/dLNormal3.5-5.7The [facility] Physician GroupComment on above: Performed By: #### MG, SCAN CBC, CMP #### [facility] [address] [place] [address] USACreatinine Clr Calc Iycbaqpd26.92NormalThe Formerly [facility] Hospital Physician GroupComment on above:Performed By: #### MG, SCAN CBC, CMP #### [facility] [address] [place] [address] USAGFR/1.73 sq M.predicted MDRD (S/P/Bld) [Vol rate/Area] mL/min/{1.73_m2}NormalThe Formerly [facility] Hospital Physician GroupComment on above:Performed By: #### MG, SCAN CBC, CMP #### [facility] [address] [place] [address] USACreatinine [Mass/volume] in Serum or PlasmaOrdered By: Elif Carroll on 97-12-7010Iruicjqswo [Mass/Vol]0.80 mg/dLNormal0.70-1.30 [facility] CenterComment on above:Performed By: #### MG, SCAN CBC, CMP #### [facility] [address] [place] [address] USAEosinophils [#/volume] in Blood by Automated countOrdered By: Elif Carroll on 21-88-0010Pixkrfxssja (Bld) [#/Vol]0.2 10*3/uLNormal0.0-0.45 [facility] CenterComment on above:Performed By: #### MG, SCAN CBC, CMP #### [facility] [address] [place] [address] USAEosinophils/100 leukocytes in Blood by Automated count Ordered By: Elif Carroll on 31-55-2758Ozjhladuuko/100 WBC (Bld)2.9 %Normal. [facility] CenterComment on above:Performed By: #### MG, SCAN CBC, CMP #### [place] [address] USAErythrocyte distribution width [Ratio] by Automated count Ordered By: Elif Carroll on 40-18-0749Hlqecrgckfz distribution width (RBC) [Ratio]14.7 %Ltiikl86.0-14.8[facility] CenterComment on above: Performed By: #### MG, SCAN CBC, CMP #### [facility] [address] [place] [address] USAErythrocyte morphology finding [Identifier] in Blood Ordered By: Elif Carroll on 57-12-9837JNO morphology finding Nom (Bld)Normal NormalNormalAdams County Regional Medical CenterComment on above:Performed By: #### MG, SCAN CBC, CMP #### [facility] [address] [place] [address] USAErythrocytes [#/volume] in Blood by Automated countOrdered By: Elif Carroll on 53-17-3014LAN (Bld) [#/Vol]4.11 10*6/uLNormal3.90-5.60 [facility] CenterComment on above:Performed By: #### MG, SCAN CBC, CMP #### [facility] [address] [place] [id number] USAGlucose [Mass/volume] in Serum or PlasmaOrdered By: Elif Carroll on 55-59-1753Yysxarc [Mass/Vol]108 mg/zQNmzg93-616JlfffvtipAdams County Regional Medical CenterComment on above:ADA recommended reference rangeRandom Glucose Reference [...] By: #### MG, SCAN CBC, CMP #### [facility] [address] [place], [place] [address] USAHematocrit [Volume Fraction] of Blood by Automated count Ordered By: Elif Carroll on 74-08-8913Wkencklsog (Bld) [Volume fraction]38.5 % Low38.8-50.0[facility] CenterComment on above:Performed By: #### MG, SCAN CBC, CMP #### [facility] [address] [place], [place] [address] USAHemoglobin [Mass/volume] in BloodOrdered By: Elif Carroll on 62-64-2743Jyadmnwoik (Bld) [Mass/Vol]12.8 g/dLLow13.0-17.0[facility] CenterComment on above:Performed By: #### MG, SCAN CBC, CMP #### [facility] [address] [place], [place] [address] USALeukocytes [#/volume] corrected for nucleated erythrocytes in Blood by Automated counOrdered By: Elif Carroll on 75-77-0352VYT corrected for nucl RBC Auto (Bld) [#/Vol]8.5 10*3/uL4.1-10.5FHarrison Community HospitalLeukocytes [#/volume] in Blood by Automated countOrdered By: Elif Carroll on 35-00-5781ZVT (Bld) [#/Vol]8.5 10*3/uLNormal4.1-10.5FHarrison Community HospitalComment on above:Performed By: #### MG, SCAN CBC, CMP #### [facility] [address] [place] [address] USALymphocytes [#/volume] in Blood by Automated countOrdered By: Elif Carroll on 58-30-5193Aqsegkaywjg (Bld) [#/Vol]1.9 10*3/uLNormal1.00-4.8 [facility] CenterComment on above:Performed By: #### MG, SCAN CBC, CMP #### [facility] [address] [place] [address] USALymphocytes/100 leukocytes in Blood by Automated count Ordered By: Elif Carroll on 04-46-7187Czroueixbcj/100 WBC (Bld)22.1 %Normal. [facility] CenterComment on above:Performed By: #### MG, SCAN CBC, CMP #### [facility] [address] [Entitic mass] by Automated countOrdered By: Elif Carroll on 60-54-3963MPM (RBC) [Entitic mass]31.1 jiPlblwp75.5-35.2FHarrison Community HospitalComment on above:Performed By: #### MG, SCAN CBC, CMP #### [facility] [address] Street Auto (RBC) [Mass/Vol]Ordered By: Elif Carroll on 41-90-0227DXDM (RBC) [Mass/Vol]33.2 g/dL32.5-35.6FHarrison Community HospitalMCV [Entitic volume] by Automated countOrdered By: Elif Carroll on 93-57-5349FFZ (RBC) [Entitic vol]93.7 fDZzjnvg14.5-101Ad[facility] Medical CenterComment on above:Performed By: #### MG, SCAN CBC, CMP #### [facility] [address] [id number] USAMagnesium [Mass/volume] in Serum or PlasmaOrdered By: Elif Carroll on 87-18-7051Mgmgkximg [Mass/Vol]2.1 mg/dLNormal1.9-2.7FHarrison Community HospitalComment on above:Result Comment: PERFORMED BY: [place] [address] PATHOLOGIST PERSONAL CARE AID AD ROSENBAUM M.D.Performed By: #### MG, SCAN CBC, CMP #### [facility] [address] [place] [address] USAMonocytes [#/volume] in Blood by Automated countOrdered By: Elif Carroll on 16-95-7852Tbbtzljpq (Bld) [#/Vol]0.8 10*3/uLNormal0.0-0.8 [facility] Medical CenterComment on above:Performed By: #### MG, SCAN CBC, CMP #### [place] [address] USAMonocytes/100 leukocytes in Blood by Automated count Ordered By: Elif Carroll on 19-65-5103Pwnboaqcr/100 WBC (Bld)9.2 %Normal. [facility] Medical CenterComment on above:Performed By: #### MG, SCAN CBC, CMP #### [facility] [address] [place] [address] USANeutrophils [#/volume] in Blood by Automated countOrdered By: Elif Carroll on 01-27-3778Xlzfsqcfxxu (Bld) [#/Vol]5.6 10*3/uLNormal1.8-7.7 [facility] Medical CenterComment on above:Performed By: #### MG, SCAN CBC, CMP #### [place] [address] USANeutrophils/100 leukocytes in Blood by Automated count Ordered By: Elif Carroll on 96-79-4777Oprosekfflx/100 WBC (Bld)65.3 %Normal. [facility] Medical CenterComment on above:Performed By: #### MG, SCAN CBC, CMP #### [place] [address] USANo Panel InformationOrdered By: Elif Carroll on 11-13-2024 Estimated GFR (CKD-EPI)> 60.0 mL/MinAdams County Regional Medical CenterPharmacy Creatinine Clearance (Chem60.92Ad[facility] Regional Medical CenterNucleated erythrocytes [Presence] in Blood by Automated countOrdered By: Elif Carroll on 61-09-9882Qkvnucyeu RBC Auto Ql (Bld)0.2 /100{WBC}0-0.5FHarrison Community HospitalPET tumor subq tx strat sb-mton 39-50-0673XNF tumor subq tx strat sb-[facility]SCC[facility] [place] [address] [place] [address] Nuclear Medicine Report Signed Patient: Jeremie Bennett MR#: [id number] 669 : 1940 Acct:[id number] Age/Sex: 84 / M ADM Date: 11/23/24 Loc: Room: Type: [facility] Attending Dr: Talib Faustin MD Copies to: [...] 3:50 PM Dictation Location: RADIO-PC-22 Transcribed By: [facility] 11/13/24 1550 Dictated By: Mario Urias Jr, 11/13/24 1539 Signed By: 11/13/24 1550[facility] Physician GroupPlatelet adequacy [Presence] in Blood by Light microscopyOrdered By: Elif Carroll on 76-22-5340Mpjibalsv LM Ql (Bld)NormalNoKettering Health Washington TownshipPlatelet mean volume [Entitic volume] in Blood by Automated countOrdered By: Elif Carroll on 11-13-2024 Platelet mean volume (Bld) [Entitic vol]8.4 fLNormal6.6-10.1FHarrison Community HospitalComment on above:Performed By: #### MG, SCAN CBC, CMP #### [facility] [address] [place] [address] USAPlatelet morphology finding [Identifier] in BloodOrdered By: Elif Carroll on 97-35-2516Dobszgzc morphology finding Nom (Bld)NormalSelect Medical Specialty Hospital - Boardman, IncPlatelets [#/volume] in Blood by Automated countOrdered By: Elif Carroll on 14-66-8049Yhrwzzwpr (Bld) [#/Vol]223 10*3/uL Bmvrwx027-494OgyxvwffrAdams County Regional Medical CenterComment on above:Performed By: #### MG, SCAN CBC, CMP #### [facility] [address] [place] [address] USAPotassium [Moles/volume] in Serum or PlasmaOrdered By: Elif Carroll on 23-57-5312Affbxuwim [Moles/Vol]4.2 mmol/LNormal3.5-5.1FHarrison Community HospitalComment on above:Performed By: #### MG, SCAN CBC, CMP #### [facility] [address] [id number] USAProtein [Mass/volume] in Serum or PlasmaOrdered By: Elif Carroll on 21-37-4247Lzflsfa [Mass/Vol]7.3 g/dLNormal6.4-8.9Ad[facility] Medical CenterComment on above:Performed By: #### MG, SCAN CBC, CMP #### [place] [address] USAScan and CBCon 13-70-5510Ebmm Corpuscular HGB Conc33.2 g/oXMnemvt89.5-35.6The [facility] Physician GroupComment on above:Performed By: #### MG, SCAN CBC, CMP #### [place] [address] USANRBC%0.2 /100{WBC}Normal0-0.5[facility] Comment on above:Performed By: #### MG, SCAN CBC, CMP #### [place] [address] USAPlatelet EstimateNormalNormalNormJackson Memorial Hospital Physician 81St Medical GroupComment on above:Performed By: #### MG, SCAN CBC, CMP #### [place] [address] USAPlatelet MorphologyNormalNormalNormJackson Memorial Hospital Physician 81St Medical GroupComment on above:Result Comment: PERFORMED BY: [place] [address] PATHOLOGIST PERSONAL CARE AID AD ROSENBAUM M.D.Performed By: #### MG, SCAN CBC, CMP #### [place] [address] USAWhite Blood Count8.5 [CFU]/mLNormal4.1-10.5The [facility] Physician GroupComment on above:Performed By: #### MG, SCAN CBC, CMP #### [place] [address] USASerum globulin measurement by calculation (mass/volume) Ordered By: Elif Carroll on 32-54-9629Wacmmhmc (S) [Mass/Vol]3.1 g/dLNormal [facility] Medical CenterComment on above:Performed By: #### MG, SCAN CBC, CMP #### [place] [address] USASerum or plasma albumin/globulin mass ratioOrdered By: Elif Carroll on 07-17-3895Jjuzzfg/Globulin [Mass ratio]1.4 {ratio}Normal [facility] Medical CenterComment on above:Performed By: #### MG, SCAN CBC, CMP #### [facility] [address] [place] [address] USASerum or plasma anion gap determinationOrdered By: Elif Carroll on 51-08-0520Pifju gap [Moles/Vol]10.6 mmol/LNormal6.0-15.0Ad[facility] Medical CenterComment on above:Performed By: #### MG, SCAN CBC, CMP #### [facility] [address] [place] [address] USASodium [Moles/volume] in Serum or PlasmaOrdered By: Elif Carroll on 76-63-8887Npqzwg [Moles/Vol]137 mmol/DKqvmqs956-935UcysnuoxiAdams County Regional Medical CenterComment on above:Performed By: #### MG, SCAN CBC, CMP #### [facility] [address] [place] [address] USAUrea nitrogen [Mass/volume] in Serum or PlasmaOrdered By: Elif Carroll on 92-57-7260Bxvj nitrogen [Mass/Vol]29 mg/dLHigh7-25Ad[facility] Medical CenterComment on above:Performed By: #### MG, SCAN CBC, CMP #### [facility] [address] [place] [address] USAAmbulatory Visit Summaryon 40-11-9728Pfmtoregvl Visit SummaryAmbulatory Visit Summary JEREMIE BENNETT Annabelle [...] Film) fluticasone nasal (fluticasone Nasal 0.05 mg/inh [place]) furosemide (furosemide 20 mg Tab) irbesartan (irbesartan [...] Appointments Wednesday 2:30 PM EDT With: Where: [address] [phone]- Wednesday 1:20 PM EDT With: Allison CASON, Demetrius Rosa Where: [address] [phone]- Medications What How Much When Instructions Unchanged nystatin (nystatin 100,000 units/ mL Oral Susp) 4 Milliliter By Mouth 4 times a day Pickup at [facility] #68414 Unchanged albuterol (Albuterol (Eqv-ProAir HFA) 90 mcg/ [...] fluticasone nasal (fluticasone Nasal 0.05 mg/ inh [place]) See instructions USE 1 SPRAY IN BOTH [...] instructions TAKE 1 CAPSULE BY (more content notincluded)...[facility] Medicine Office/Clinic Noteon 89-38-3643Kbqzpq Medicine Office/Clinic NoteAtrium Health Navic[facility] Office/Clinic Note Chief Complaint - The patient [...] QID, # 112 mL, Refills(s) 1, Pharmacy: [id number], 160, cm, 10/30/24 17:38:00 EDT, Height/Length Dosing, [...] to opioid therapy Coronary artery disease involving elim 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 [...] patch(es), Topical, q72hr fluticasone Nasal 0.05 mg/inh [place], See Instructions furosemide 20 mg Tab, 20 mg= 1 tab(s), Oral, Daily irbesartan 300 mg Tab, 300 mg= 1 tab(s), Oral, Daily isosorbide mononitrate, 30 mg, Oral, qAM latanoprost Opth 0.005% Janee metformin 500 mg ER T (more content not included)...[facility] County HospitalComment on above:Result Comment: Electronically Signed By: Demetrius Cooper MD\.br\Date and Time Signed: 10/30/24 18:01 EDTAmbulatory Visit Summaryon 22-73-4447Szhngpsgnn Visit SummaryAmbulatory Visit Summary JEREMIE BENNETT :1940 [...] Film) fluticasone nasal (fluticasone Nasal 0.05 mg/inh [place]) furosemide (furosemide 20 mg Tab) irbesartan (irbesartan [...] Appointments Wednesday 2:30 PM EDT With: Where: [address] [address]- Wednesday 3:20 PM EDT With: Allison CASON, Demetrius Rosa Where: [address] [address]- Medications What How Much When Instructions Unchanged [...] fluticasone nasal (fluticasone Nasal 0.05 mg/ inh [place]) See instructions USE 1 SPRAY IN BOTH [...] to opioid therapy Coronary artery disease involving elim 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 associated with type 2 diabetes mellitus Diverticulosis FH: stomach can (more content not included)...[facility] Ambulatory Visit SummaryAmbulatory Visit Summary JEREMIE [...] Film) fluticasone nasal (fluticasone Nasal 0.05 mg/inh [place]) furosemide (furosemide 20 mg Tab) irbesartan (irbesartan [...] Appointments Wednesday 2:30 PM EDT With: Where: [place] [phone]- Wednesday 3:20 PM EDT With: Allison CASON, Demetrius Rosa Where: [facility] [address] [place] [address]- Medications What How Much When Instructions Unchanged [...] fluticasone nasal (fluticasone Nasal 0.05 mg/ inh [place]) See instructions USE 1 SPRAY IN BOTH [...] to opioid therapy Coronary artery disease involving elim 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 associated with type 2 diabetes mellitus Diverticulosis FH: stomach cancer Former smoker GERD with apnea Gla (more content not included)...[facility] Medicine Office/Clinic Noteon 11-71-4244Humcvv Medicine Office/Clinic NoteFami Medicine Office/Clinic Note Chief [...] to opioid therapy Coronary artery disease involving elim 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 [...] Irregular bowel habits Procedure/Surgical (more content not included)...[facility] County HospitalComment on above:Result Comment: Electronically Signed By: Allison CASON, Demetrius Branham.br\Date and Time Signed: 10/12/24 15:08 EDTCapillary blood glucose measurement by glucometer (mass/volume)Ordered By: Veena Ross on 74-23-8449Cgwdtgd [Mass/Vol]103 mg/dLWexner Medical Center Comment on above:Random Glucose Reference Range is [...] Point of Care testing ,GLUCOSE POCT GLUCOMETERSon 43-38-4470THZVFFA6Hmh8: Cleaned MeterCASTLEVIEW HOSPITAL [facility]add[facility] Glucose [Mass/Vol]103 mg/dLCox Walnut LawnComment on above:Random Glucose Reference Range is dependent on time and content of last meal. Glucose of more than 200 mg/dL in a nonstressed, ambulatory subject supports the diagnosis of Diabetes Mellitus. [facility] Walnut LawnGlucose Poct Glucometerson 03-21-4122Gakdslo0Fdc3: Cleaned Meter [facility] Physician GroupComment on above:Result Comment: PERFORMED BY: [facility] [address] [place] [address] PATHOLOGIST PERSONAL CARE AID HEBER SHANNON M.D.Performed By: #### GLULS #### Point of Care testing ,No Panel InformationOrdered By: Veena Ross on 21-07-6807Lcfpaxh Glucose CommentGlu2: cleaned [facility] Medicine Office/Clinic Noteon 32-48-6040Zuhwlp Medicine Office/Clinic NoteFoxborough State Hospital Medicine Office/Clinic Note Chief Complaint ER follow up Abdominal pain and difficulty swallowing HPI Staff 2 week follow up to RUQ pain. Liver US ordered @ [facility]. Instructed to get done if pain worsens. [place] since then [place] [facility] [place]: abdominal pain & constipation States [...] day(s), # 140 mL, Refills(s) 0, [id number], 160, cm, 09/28/24 14:41:00 EDT, Height/Length Dosing, [...] oral thrush. I prescribed Nystatin in a bcdyp-xxb-ixxizsy method to effectively address the thrush symptoms [...] to opioid therapy Coronary artery disease involving elim 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 associated with type 2 diabetes mellitus Diverticulo (more content not included)...[facility] Comment on above:Result Comment: Electronically Signed By: Allison CASON, Demetrius Rosa\.br\Date and Time Signed: 09/28/24 15:12 EDTAlanine aminotransferase [Enzymatic activity/volume] in Serum or PlasmaOrdered By: Maru Hayes on 42-23-0343AWC [Catalytic activity/Vol]Alanine aminotransferase [Enzymatic activity/volume] in Serum or PlasmaAdams County Regional Medical CenterALT [Catalytic activity/Vol]9 U/LNormal[address] [place], [place] [address]Comment on above:Performed By: #### MG, SCAN CBC, CMP #### [place] [address] USAAlbumin [Mass/volume] in Serum or Plasma by Bromocresol green (BCG) dye binding methoOrdered By: Maru Hayes on 89-79-2384Crwgnkb BCG dye [Mass/Vol]Albumin [Mass/volume] in Serum or Plasma by Bromocresol green (BCG) dye binding metho3.5-5.7FHarrison Community HospitalAlbumin BCG dye [Mass/Vol]3.5 g/dL3.5-5.7FHarrison Community HospitalAlkaline phosphatase [Enzymatic activity/volume] in Serum or PlasmaOrdered By: Maru Hayes on 38-56-3477BPF [Catalytic activity/Vol]Alkaline phosphatase [Enzymatic activity/volume] in Serum or Rrqzdz06-068MvwozuwswAdams County Regional Medical CenterALP [Catalytic activity/Vol]81 U/SLnxfko67-887CcfhboygxAdams County Regional Medical Center Comment on above:Performed By: #### MG, SCAN CBC, CMP #### [facility] [address] [place] [address] USAAppearance of UrineOrdered By: Maru Hayes on 93-96-7779Yvgylchdxy (U)Urine appearanceCleMercy Health West Hospital Appearance (U)ClearNormalClearAdams County Regional Medical CenterComment on above: Order Comment: Name Collection Type:: Clean-Voided MidstreamPerformed By: #### UA #### [facility] [address] [place] [address] USAAspartate aminotransferase [Enzymatic activity/volume] in Serum or PlasmaOrdered By: Maru Hayes on 24-02-5108LWM [Catalytic activity/Vol]Aspartate aminotransferase [Enzymatic activity/volume] in Serum or Bmnpzm38-59RqzknxydhAdams County Regional Medical CenterAST [Catalytic activity/Vol]14 U/L Lqmnvi84-68Itboprjyv89 Collins StreetComment on above:Performed By: #### MG, SCAN CBC, CMP #### [facility] [address] [place] [address] USABasic Metabolic Panelon 55-51-3325Tivtbccuwr Clr Calc Eytcgbpa76.79[facility] Physician GroupComment on above:Performed By: #### MG, SCAN CBC, CMP #### [facility] [address] [place] [address] USAGFR/1.73 sq M.predicted MDRD (S/P/Bld) [Vol rate/Area] mL/min/{1.73_m2}[facility] Physician GroupComment on above:Performed By: #### MG, SCAN CBC, CMP #### [facility] [address] [place] [address] USABasophils Auto (Bld) [#/Vol]Ordered By: Maur Hayes on 90-07-6452Hirqpictq (Bld) [#/Vol]Automated basophil count0.0-0.2FHarrison Community HospitalBasophils [#/volume] in Blood by Automated countOrdered By: Maru Hayes on 40-25-1404Eafsdmipt (Bld) [#/Vol]0.1 10*3/uLNormal0.0-0.2 [facility] Medical CenterComment on above:Result Comment: PERFORMED BY: [place] [address] PATHOLOGIST PERSONAL CARE AID HEBER SHANNON M.D.Performed By: #### MG, SCAN CBC, CMP #### [facility] [address] [place] [address] USABasophils/100 WBC Auto (Bld)Ordered By: Maru Hayes on 43-99-8809Vzrnaovni/100 WBC (Bld)Automated basophil %.[facility] Medical CenterBasophils/100 leukocytes in Blood by Automated countOrdered By: Maru Hayes on 62-86-7895Ornnkwxsg/100 WBC (Bld)1.2 %Normal.[facility] Medical CenterComment on above:Performed By: #### MG, SCAN CBC, CMP #### [facility] [address] [place] [address] USABilirubin Test strip Ql (U)Ordered By: Maru Hayes on 27-83-0750Ggaydrymd Ql (U)Bilirubin.total [Presence] in Urine by Test strip NegativeAdams County Regional Medical CenterBilirubin Ql (U)NegativeNegative [facility] Medical CenterBilirubin.direct [Mass/volume] in Serum or PlasmaOrdered By: Maru Hayes on 62-98-2563Stnfyicbv.direct [Mass/Vol] Bilirubin.direct [Mass/volume] in Serum or Plasma0.03-0.18FHarrison Community HospitalBilirubin.direct [Mass/Vol]0.10 mg/dL0.03-0.18FHarrison Community HospitalBilirubin.total [Mass/volume] in Serum or PlasmaOrdered By: Maru Hayes on 22-41-1341Ocwmlqofd [Mass/Vol]Bilirubin.total [Mass/volume] in Serum or Plasma0.3-1.0[facility] Medical CenterBilirubin [Mass/Vol]0.5 mg/dL Normal0.3-1.0[facility] Medical CenterComment on above:Performed By: #### MG, SCAN CBC, CMP #### [facility] [address] [place] [address] USACT abdomen pelvis w conon 82-61-0308AX abdomen pelvis w [facility] [place] [address] [place] [address] CT Scan Report Signed Patient: Jeremie Bennett MR#: [id number] 669 : 1940 Acct:[id number] Age/Sex: 83 / M ADM Date: 09/20/24 [...] Gordon II, MD 09/20/241947 Signed By: 09/20/[address] [place] [address] Physician GroupCalcium [Mass/volume] in Serum or PlasmaOrdered By: Maru Hayes on 77-48-7614Ytsnuay [Mass/Vol]Calcium [Mass/volume] in Serum or Plasma8.6-10.3FHarrison Community HospitalCalcium [Mass/Vol]9.5 mg/dLNormal8.6-10.3FHarrison Community HospitalComment on above:Performed By: #### MG, SCAN CBC, CMP #### [facility] [address] [id number] USACarbon dioxide, total [Moles/volume] in Serum or Plasma Ordered By: Maru Hayes on 16-95-5864FI0 [Moles/Vol]Carbon dioxide, total [Moles/volume] in Serum or Qazpxs37.0-31.0Ad[facility] Medical CenterCO2 [Moles/Vol]26.8 mmol/OPlrhdc31.0-31.0[facility] Medical CenterComment on above:Performed By: #### MG, SCAN CBC, CMP #### [facility] [address] [id number] USAChloride [Moles/volume] in Serum or PlasmaOrdered By: Maru Hayes on 61-16-3298Ssvbqdzy [Moles/Vol][place] [Moles/volume] in Serum or Aqsxyi94-775PhlcudoxaAdams County Regional Medical CenterChloride [Moles/Vol]104 mmol/L Unckrh14-269ZfuajefcfAdams County Regional Medical CenterComment on above:Performed By: #### MG, SCAN CBC, CMP #### [facility] [address] [place] [address] USAColor Auto (U)Ordered By: Maru Hayes on 09-20-2024 Color (U)Color of Urine by AutoYellowAdams County Regional Medical CenterColor of Urine by AutoOrdered By: Maru Hayes on 82-61-2500Uusrm (U)Light-yellowNormal YellowAdams County Regional Medical CenterComment on above:Order Comment: Name Collection Type:: Clean-Voided MidstreamPerformed By: #### UA #### [facility] [address] [place] [address] USAComplete Blood Count Auto Diffon 55-61-7200Czws Corpuscular HGB Conc33.3 g/kVWpbzln83.5-35.6[facility] Physician GroupComment on above:Performed By: #### MG, SCAN CBC, CMP #### [place] [address] USAMonocytes/100 WBC (Bld)22.62 %High0.00-20.00The [facility] Physician GroupComment on above:Result Comment: For adults in ED, MDW > 20.0 may be associated with a higher risk of sepsis during the first 12 hrs of hospital admissionPerformed By: #### MG, SCAN CBC, CMP #### [facility] [address] [place] [address] USANRBC%0.0 /100{WBC}Normal0-0.5[facility] Comment on above:Performed By: #### MG, SCAN CBC, CMP #### [facility] [address] [place] [address] USACreatinine [Mass/volume] in Serum or PlasmaOrdered By: Maru Hayes on 50-11-4324Zcjbfaxxtf [Mass/Vol]Creatinine [Mass/volume] in Serum or Plasma0.70-1.30[facility] Medical CenterCreatinine [Mass/Vol] 0.70 mg/dLNormal0.70-1.30[facility] Medical CenterComment on above: Performed By: #### MG, SCAN CBC, CMP #### [address] [place] [address] USAECG 12 lead ECGon 35-81-6290ZSE 12 lead ECGSCCI HOSPITAL LIMA [address] [place] [address] [place] [address] Electrocardiograph Report Signed Patient: Jeremie Bennett MR#: [id number] 669 : 1940 Acct:[id number] Age/Sex: 83 / M ADM Date: 09/20/24 Loc: ER Room: Type: [facility] ER Attending Dr: Ordering Provider: Maru [...] Abnormal ECG Confirmed by Maru Hayes MD ([id number]) on 09/20/2024 11:00:16 PM Referred By: Electronically Signed By: Maru Hayes MD Transcribed By: MUS Signed By Maru Hayes MD 12/[address] [place] [address] Physician GroupEosinophils Auto (Bld) [#/Vol] Ordered By: Maru Hayes on 74-83-7149Dlgtwmsmlen (Bld) [#/Vol]Automated eosinophil count0.0-0.45Ad[facility] Regional Medical CenterEosinophils [#/volume] in Blood by Automated countOrdered By: Maru Hayes on 67-53-6422Zkzkbsbgcfl (Bld) [#/Vol]0.3 10*3/uLNormal0.0-0.45[facility] Medical CenterComment on above:Performed By: #### MG, SCAN CBC, CMP #### [facility] [address] [place] [address] USAEosinophils/100 WBC Auto (Bld)Ordered By: Maru Hayes on 33-87-6984Rfynpjuyila/100 WBC (Bld)Automated eosinophil %.[facility] Medical CenterEosinophils/100 leukocytes in Blood by Automated countOrdered By: Maru Hayes on 62-03-7772Yexxqhtekea/100 WBC (Bld)2.5 %Normal.[facility] Medical CenterComment on above:Performed By: #### MG, SCAN CBC, CMP #### [facility] [address] [place] [address] USAErythrocyte distribution width Auto (RBC) [Ratio]Ordered By: Maru Hayes on 04-48-7376Hnbyqjbkigs distribution width (RBC) [Ratio] Erythrocyte distribution width [Ratio] by Automated gaupeNbyb35.0-14.8Ad[facility] Regional Medical CenterErythrocyte distribution width [Ratio] by Automated count Ordered By: Maru Hayes on 43-71-6780Zpvorauhfgc distribution width (RBC) [Ratio]15.9 %High12.-14.[address] [place], [place] [address]Comment on above: Performed By: #### MG, SCAN CBC, CMP #### [facility] [address] [place] [address] USAErythrocytes [#/volume] in Blood by Automated countOrdered By: Maru Hayes on 21-89-6827XQZ (Bld) [#/Vol]3.85 10*6/uLLow3.90-5.60 [facility] Medical CenterComment on above:Performed By: #### MG, SCAN CBC, CMP #### [place] [address] USAGlobulin Calc (S) [Mass/Vol]Ordered By: Maru Hayes on 24-38-6935Qfxepzwl (S) [Mass/Vol]Serum globulin measurement by calculation (mass/volume)Ad[facility] Medical CenterGlucose [Mass/volume] in Serum or PlasmaOrdered By: Maru Hayes on 20-08-1890Lhemsib [Mass/Vol]Glucose [Mass/volume] in Serum or WjqbsjHolq62-265IjmmfwfaaAdams County Regional Medical Center Comment on above:ADA recommended reference rangeRandom Glucose Reference Range is dependent on time and content of last meal. Glucose of more than 200 mg/dL in a nonstressed, ambulatory subject supports the diagnosisof Diabetes Mellitus. Glucose [Mass/Vol]105 mg/jTSxbo34-353PiejfhdgsAdams County Regional Medical CenterComment on above:ADA recommended reference rangeRandom Glucose Reference [...] By: #### MG, SCAN CBC, CMP #### [facility] [address] [id number] USAGlucose [Mass/volume] in Urine by Test stripOrdered By: Maru Hayes on 54-88-4767Muxtgvi Test strip (U) [Mass/Vol]Glucose [Mass/volume] in Urine by Test stripNoKettering Health Washington Township Glucose Test strip (U) [Mass/Vol]Normal mg/dLNoKettering Health Washington TownshipHematocrit Auto (Bld) [Volume fraction]Ordered By: Maru Hayes on 75-85-2688Miczkncwyi (Bld) [Volume fraction]Hematocrit [Volume Fraction] of Blood by Automated jcdswJwx53.8-50.0Ad[facility] Medical CenterHematocrit [Volume Fraction] of Blood by Automated countOrdered By: Maru Hayes on 12-31-5370Kkhjbfvwag (Bld) [Volume fraction]35.3 %Low38.8-50.0[facility] Medical CenterComment on above:Performed By: #### MG, SCAN CBC, CMP #### [facility] [address] [id number] USAHemoglobin Test strip Ql (U)Ordered By: Maru Hayes on 03-85-8346Ibccplvlav Ql (U)Hemoglobin [Presence] in Urine by Test stripNegative [facility] Medical CenterHemoglobin Ql (U)NegativeNegativeAdams County Regional Medical CenterHemoglobin [Mass/volume] in BloodOrdered By: Maru Hayes on 20-33-0961Gftopktdln (Bld) [Mass/Vol]Hemoglobin [Mass/volume] in VuygtMfe56.0-17.0[facility] Medical CenterHemoglobin (Bld) [Mass/Vol] 11.8 g/dLLow13.0-17.0[facility] CenterComment on above:Performed By: #### MG, SCAN CBC, CMP #### [facility] [address] [place] [address] USAHepatic Panelon 95-55-4468Zzrfcqi [Mass/Vol]3.5 g/dLNormal 3.5-5.7The [facility] Physician GroupComment on above:Performed By: #### MG, SCAN CBC, CMP #### [facility] [address] [place] [address] USABilirubin,Indirect0.4 mg/dLNormalThe [facility] Physician 81St Medical GroupComment on above:Performed By: #### MG, SCAN CBC, CMP #### [facility] [address] [place] [address] USABilirubin.indirect [Mass/Vol]0.10 mg/dLNormal0.03-0.18The [facility] Physician GroupComment on above:Performed By: #### MG, SCAN CBC, CMP #### [facility] [address] [place] [address] USAKetones Test strip Ql (U)Ordered By: Maru Hayes on 26-72-0515Zcybksu Ql (U)Ketones [Presence] in Urine by Test stripNegative [facility] CenterKetones [Presence] in Urine by Test strip Ordered By: Maru Hayes on 02-98-3759Eofkcfx Ql (U)NegativeNormalNegSelect Medical Specialty Hospital - Southeast OhioComment on above:Order Comment: Name Collection Type:: Clean-Voided MidstreamPerformed By: #### UA #### [place] [address] USALeukocyte esterase [Presence] in Urine by Test strip Ordered By: Maru Hayes on 99-80-5070Aqajakhzy esterase Test strip Ql (U) Leukocyte esterase [Presence] in Urine by Test stripNegativeAdams County Regional Medical CenterLeukocyte esterase Test strip Ql (U)NegativeNormalNegative [facility] CenterComment on above:Order Comment: Name Collection Type:: Clean-Voided MidstreamPerformed By: #### UA #### [facility] [address] [place] [address] USALeukocytes [#/volume] corrected for nucleated erythrocytes in Blood by Automated counOrdered By: Maru Hayes on 09-28-5460UDY corrected for nucl RBC Auto (Bld) [#/Vol]Leukocytes [#/volume] corrected for nucleated erythrocytes in Blood by Automated counHigh4.1-10.5FHarrison Community HospitalWBC corrected for nucl RBC Auto (Bld) [#/Vol]11.2 10*3/uLHigh4.1-10.5 [facility] CenterLeukocytes [#/volume] in Blood by Automated countOrdered By: Maru Hayes on 97-25-3892FXJ (Bld) [#/Vol]11.2 10*3/uLHigh 4.1-10.5FHarrison Community HospitalComment on above:Performed By: #### MG, SCAN CBC, CMP #### [place] [id number] USALipase [Enzymatic activity/volume] in Serum or Plasma Ordered By: Maru Hayes on 70-18-1969Hrbzkw [Catalytic activity/Vol]Lipase [Enzymatic activity/volume] in Serum or Ebdqza13.0-82.0[facility] Medical CenterLipase [Catalytic activity/Vol]34.0 U/USpxgmi90.0-82.0[facility] CenterComment on above:Result Comment: PERFORMED BY: [place] [address] PATHOLOGIST PERSONAL CARE AID HEBER SHANNON M.D.Performed By: #### MG, SCAN CBC, CMP #### [facility] [address] [place] [id number] USALymphocytes Auto (Bld) [#/Vol]Ordered By: Maru Hayes on 79-24-6010Thdzbbrxerj (Bld) [#/Vol]Lymphocytes [#/volume] in Blood by Automated count1.00-4.8[facility] Medical CenterLymphocytes [#/volume] in Blood by Automated countOrdered By: Maru Hayes on 96-16-1244Nungyccoxpp (Bld) [#/Vol]2.8 10*3/uLNormal1.00-4.8[facility] CenterComment on above:Performed By: #### MG, SCAN CBC, CMP #### [facility] [address] [place] [address] USALymphocytes/100 WBC Auto (Bld)Ordered By: Maru Hayes on 28-89-1206Xcoeyonromz/100 WBC (Bld)Lymphocytes/100 leukocytes in Blood by Automated count.[facility] Medical CenterLymphocytes/100 leukocytes in Blood by Automated countOrdered By: Maru Hayes on 35-22-9443Pqgegkhjcto/100 WBC (Bld)24.8 %Normal.[facility] CenterComment on above: Performed By: #### MG, SCAN CBC, CMP #### [facility] [address] [place] [address] Auto (RBC) [Entitic mass]Ordered By: Maru Hayes on 35-25-3840AUZ (RBC) [Entitic mass]MCH [Entitic mass] by Automated count27.5-35.2 [facility] [Entitic mass] by Automated countOrdered By: Maru Hayes on 64-50-8412VGG (RBC) [Entitic mass]30.5 ncAcpozj89.5-35.2 [facility] CenterComment on above:Performed By: #### MG, SCAN CBC, CMP #### [facility] [address] [place], [place] [address] [facility] Auto (RBC) [Mass/Vol]Ordered By: Maru Hayes on 83-78-5319QRXC (RBC) [Mass/Vol]MCHC [Mass/volume] by Automated count32.5-35.6 [facility] CampusHC (RBC) [Mass/Vol]33.3 g/dL32.5-35.6 [facility] CampusV Auto (RBC) [Entitic vol]Ordered By: Maru Hayes on 59-35-6082QSC (RBC) [Entitic vol]MCV [Entitic volume] by Automated count83.5-101[facility] CenterMCV [Entitic volume] by Automated countOrdered By: Maru Hayes on 27-96-5608FUI (RBC) [Entitic vol]91.7 fL Iwibjm90.5-101[facility] CenterComment on above:Performed By: #### MG, SCAN CBC, CMP #### [facility] [address] [place] [address] USAMonocyte distribution width [Entitic volume] in Blood by AutomatedOrdered By: Maru Hayes on 58-55-8885Bwtxculh distribution width Auto (Bld) [Entitic vol]Monocyte distribution width [Entitic volume] in Blood by AutomatedHigh0.00-20.00[facility] CenterComment on above:For adults in ED, MDW > 20.0 may be associated with a higher risk of sepsis during the first 12 hrs of hospital admissionMonocyte distribution width Auto (Bld) [Entitic vol]22.62 %High0.00-20.00[facility] CenterComment on above:For adults in ED, MDW > 20.0 may be associated with a higher risk of sepsis during the first 12 hrs of hospital admissionMonocytes Auto (Bld) [#/Vol] Ordered By: Maru Hayes on 79-57-2365Vyddrxwiq (Bld) [#/Vol]Automated blood monocyte count0.0-0.8[facility] Medical CenterMonocytes [#/volume] in Blood by Automated countOrdered By: Maru Hayes on 29-26-2229Qzilmigtp (Bld) [#/Vol]0.8 10*3/uLNormal0.0-0.8[facility] CenterComment on above:Performed By: #### MG, SCAN CBC, CMP #### [facility] [address] [place] [address] USAMonocytes/100 WBC Auto (Bld)Ordered By: Maru Hayes on 97-85-0198Lchajqkbn/100 WBC (Bld)Automated monocyte %.[facility] CenterMonocytes/100 leukocytes in Blood by Automated countOrdered By: Maru Hayes on 04-61-1194Ygsjrptth/100 WBC (Bld)7.2 %Normal.[facility] CenterComment on above:Performed By: #### MG, SCAN CBC, CMP #### [facility] [address] [place] [address] USANeutrophils Auto (Bld) [#/Vol]Ordered By: Maru Hayes on 88-97-7053Izkciwcoquq (Bld) [#/Vol]Neutrophils [#/volume] in Blood by Automated count1.8-7.7FHarrison Community HospitalNeutrophils [#/volume] in Blood by Automated countOrdered By: Maru Hayes on 92-41-8483Scbwrtpgesc (Bld) [#/Vol]7.2 10*3/uLNormal1.8-7.7FHarrison Community HospitalComment on above:Performed By: #### MG, SCAN CBC, CMP #### [facility] [address] [place] [id number] USANeutrophils/100 WBC Auto (Bld)Ordered By: Maru Hayes on 83-79-3048Pyqajqmzeis/100 WBC (Bld)Automated neutrophil %.[facility] CenterNeutrophils/100 leukocytes in Blood by Automated countOrdered By: Maru Hayes on 09-60-9880Rmkjdnzglaj/100 WBC (Bld)64.3 %Normal.[facility] CenterComment on above:Performed By: #### MG, SCAN CBC, CMP #### [facility] [address] [place] [id number] USANitrite Test strip Ql (U)Ordered By: Maru Hayes on 67-78-6656Vwrqpzl Ql (U)Nitrite [Presence] in Urine by Test stripNegative [facility] CenterNitrite Ql (U)NegativeNegativeAdams County Regional Medical CenterNo Panel InformationOrdered By: Maru Hayes on 00-23-6586Axzhpoqjh GFR (CKD-EPI)> 60.0 mL/MinAdams County Regional Medical Center Pharmacy Creatinine Clearance (Chem59.79[facility] Nucleated erythrocytes [Presence] in Blood by Automated countOrdered By: Maru Hayes on 49-31-0083Sevbmnuxe RBC Auto Ql (Bld)Nucleated erythrocytes [Presence] in Blood by Automated count0-0.5FHarrison Community Hospital Nucleated RBC Auto Ql (Bld)0.0 /100{WBC}0-0.5FHarrison Community Hospital Platelet mean volume Auto (Bld) [Entitic vol]Ordered By: Maru Hayes on 94-35-4143Yjvshhsk mean volume (Bld) [Entitic vol]Platelet mean volume [Entitic volume] in Blood by Automated count6.6-10.1FHarrison Community Hospital Platelet mean volume [Entitic volume] in Blood by Automated countOrdered By: Maru Hayes on 28-82-9369Rpxwgxzq mean volume (Bld) [Entitic vol]8.3 fLNormal 6.6-10.1FHarrison Community HospitalComment on above:Performed By: #### MG, SCAN CBC, CMP #### [facility] [address] [place] [address] USAPlatelets Auto (Bld) [#/Vol]Ordered By: Maru Hayes on 72-52-1983Bncbhtejz (Bld) [#/Vol]Platelets [#/volume] in Blood by Automated ujaxj962-845YcqkvxlncAdams County Regional Medical CenterPlatelets [#/volume] in Blood by Automated countOrdered By: Maru Hayes on 76-44-1611Uthejzsue (Bld) [#/Vol] 226 10*3/vQTmyoha305-405Pwylbr[address] [place], [place] [address]Comment on above: Performed By: #### MG, SCAN CBC, CMP #### [facility] [address] [place], [place] [address] [facility] Healthon 24-48-9640SkhwgufvxlLehigh Valley Hospital - [facility]elton Case Information Case Priority: None Programs: -- Referral Source: Store Gift Wrap Associate Referral Reason: Care coordination Case Type: Transition [...] to opioid therapy Coronary artery disease involving elim 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 [...] patch(es), Topical, q72hr fluticasone Nasal 0.05 mg/inh [place], See Instructions furosemide 20 mg Tab, 20 [...] OV 09/14, buthe has not heard from [facility], a message sent to clinical for f/u. Patient denies any further questions or concerns. Communication Events Date: September 20, 2024 Method: Phone call Type: Outbound Duration (min): 3 Outcome: Case discussion Contact Type: Patient Contact Name: B (more content not included)...NormalMercy Health – The Jewish HospitalPotassium [Moles/volume] in Serum or PlasmaOrdered By: Maru Hayes on 77-14-2215Uxkyqjsvj [Moles/Vol]Potassium [Moles/volume] in Serum or Plasma3.5-5.1FHarrison Community Hospital Potassium [Moles/Vol]4.0 mmol/LNormal3.5-5.1FHarrison Community Hospital Comment on above:Performed By: #### MG, SCAN CBC, CMP #### [facility] [address] [place] [address] USAProtein Test strip (U) [Mass/Vol]Ordered By: Maru Hayes on 83-74-4611Hgadykm (U) [Mass/Vol]Protein [Mass/volume] in Urine by Test stripNegativeAdams County Regional Medical CenterProtein (U) [Mass/Vol] NegativeNegativeAdams County Regional Medical CenterProtein [Mass/volume] in Serum or PlasmaOrdered By: Maru Hayes on 14-43-1492Ygjxqtl [Mass/Vol]Protein [Mass/volume] in Serum or Plasma6.4-8.9[facility] Medical CenterProtein [Mass/Vol]6.4 g/dLNormal6.4-8.9[facility] CenterComment on above:Performed By: #### MG, SCAN CBC, CMP #### [facility] [address] [place] [address] USARBC Auto (Bld) [#/Vol]Ordered By: Maru Hayes on 85-89-3810TZK (Bld) [#/Vol]Erythrocytes [#/volume] in Blood by Automated count Low3.90-5.60The Jewish Hospitalerum globulin measurement by calculation (mass/volume)Ordered By: Maru Hayes on 71-32-8406Wdidlrei (S) [Mass/Vol]2.9 g/dLNoKettering Health Washington TownshipComment on above: Performed By: #### MG, SCAN CBC, CMP #### [place] [address] USASerum or plasma albumin/globulin mass ratioOrdered By: Maru Hayes on 01-47-6043Tafxkqj/Globulin [Mass ratio]Serum or plasma albumin/globulin mass ratioAdams County Regional Medical CenterAlbumin/Globulin [Mass ratio]1.2 {ratio}NormalAdams County Regional Medical CenterComment on above: Performed By: #### MG, SCAN CBC, CMP #### [facility] [address] [place] [id number] USASerum or plasma anion gap determinationOrdered By: Maru Hayes on 78-85-7520Mslmw gap [Moles/Vol]Serum or plasma anion gap determination6.0-15.0[facility] Medical CenterAnion gap [Moles/Vol]10.2 mmol/LNormal6.0-15.0[facility] CenterComment on above:Performed By: #### MG, SCAN CBC, CMP #### [facility] [address] [place] [id number] USASerum or plasma non-glucuronidated bilirubin measurement (mass/volume)Ordered By: Maru Hayes on 83-55-2615Amuxtvtrz.indirect [Mass/Vol]Serum or plasma non-glucuronidated bilirubin measurement (mass/volume) [facility] Medical CenterBilirubin.indirect [Mass/Vol]0.4 mg/dLThe Jewish Hospitalodium [Moles/volume] in Serum or PlasmaOrdered By: Maru Hayes on 09-85-9531Orcobj [Moles/Vol]Sodium [Moles/volume] in Serum or Uitymq663-903OgknawoyxThe Jewish Hospitalodium [Moles/Vol]137 mmol/LNormal 136-145[facility] Medical CenterComment on above:Performed By: #### MG, SCAN CBC, CMP #### [facility] [address] [place] [id number] USASpecific gravity Test strip (U) [Rel density]Ordered By: Maru Hayes on 35-63-1626Kgfjpyty gravity (U) [Rel density]Specific gravity of Urine by Test stripHigh1.001-1.030The Jewish Hospitalpecific gravity (U) [Rel density]1.040Kzvf3.001-1.030[facility] Troponin I High Sensitivityon 55-84-0856Csqwwzof I High Lxyahxyjbyl7Dumydq3-47 The [facility] Physician GroupComment on above:Result Comment: The Troponin units of report have been changed to meet the Chest Pain Accreditation requirement, element EC5.M1l2. Troponin units are changed from pg/ml to ng/L. Also, the decimal is removed and results are in whole numbers. PERFORMED BY: [place] [id number] PATHOLOGIST PERSONAL CARE AID HEBER SHANNON M.D.Performed By: #### HS TROP #### [facility] [address] [place] [address] USATroponin I.cardiac [Mass/volume] in Serum or Plasma by Detection limit <= 0.01 ng/Ordered By: Maru Hayes on 13-14-5818Ktdocbxr I.cardiac DL <= 0.01 ng/mL [Mass/Vol]Troponin I.cardiac [Mass/volume] in Serum or Plasma by Detection limit <= 0.01 ng/0-[facility] Comment on above:The Troponin units of report have been changed to meet the Chest Pain Accreditation requirement, element EC5.M1l2. Troponin units are changed from pg/ml to ng/L. Also, the decimal is removed and results are in whole numbers.Troponin I.cardiac [Mass/volume] in Serum or Plasma by Detection limit <= 0.01 ng/mLOrdered By: Maru Hayes on 22-90-1565Xwobiuvp I.cardiac DL <= 0.01 ng/mL [Mass/Vol]7 ng/LAdams County Regional Medical CenterComment on above:The Troponin units of report have been changed to meet the Chest Pain Accreditation requirement, element EC5.M1l2. Troponin units are changed from pg/ml to ng/L. Also, the decimal is removed and results are in whole numbers. Urea nitrogen [Mass/volume] in Serum or PlasmaOrdered By: Maru Hayes on 52-44-4976Xvmz nitrogen [Mass/Vol]Urea nitrogen [Mass/volume] in Serum or Plasma 12-08[facility] Medical CenterUrea nitrogen [Mass/Vol]20 mg/dLNormal12-08 [facility] CenterComment on above:Performed By: #### MG, SCAN CBC, CMP #### [facility] [address] [place] [address] USAUrinalysison 76-48-4426Rbbbllkxx,UrineNegativeNormal NegativeThe Formerly [facility] Hospital Physician GroupComment on above:Order Comment: Name Collection Type:: Clean-Voided MidstreamPerformed By: #### UA #### [place] [address] USAGlucose Ql (U)NormalNormalNormalThe Formerly [facility] Physician GroupComment on above:Order Comment: Name Collection Type:: Clean-Voided MidstreamPerformed By: #### UA #### [place] [address] USANitrite,UrineNegativeNormalNegativeThe Formerly [facility] Physician GroupComment on above:Order Comment: Name Collection Type:: Clean-Voided MidstreamPerformed By: #### UA #### [place] [address] USAOccult Blood,UrineNegativeNormalNegativeThe [facility] Physician GroupComment on above:Order Comment: Name Collection Type:: Clean- Voided MidstreamResult Comment: PERFORMED BY: [place] [address] PATHOLOGIST PERSONAL CARE AID HEBER SHANNON M.D.Performed By: #### UA #### [place] [address] USAProtein,UrineNegativeNormalNegativeThe Formerly [facility] Physician GroupComment on above:Order Comment: Name Collection Type:: Clean-Voided MidstreamPerformed By: #### UA #### [place] [address] USASpecificy [place],Urine1.070Zukj4.001-1.030The [facility] Physician GroupComment on above:Order Comment: Name Collection Type:: Clean- Voided MidstreamPerformed By: #### UA #### [place] [address] USAUrobilinogen,UrineNormalNormalNormalThe [facility]ly [facility] Physician GroupComment on above:Order Comment: Name Collection Type:: Clean- Voided MidstreamPerformed By: #### UA #### [facility] [address] [place] [address] USAUrobilinogen Test strip (U) [Mass/Vol]Ordered By: Maru Hayes on 21-48-6829Gmbblvgqkeyq (U) [Mass/Vol]Urobilinogen [Mass/volume] in Urine by Test stripNoKettering Health Washington TownshipUrobilinogen (U) [Mass/Vol]Normal mg/dLNoKettering Health Washington TownshipWBC Auto (Bld) [#/Vol]Ordered By: Maru Hayes on 65-71-3582VXV (Bld) [#/Vol]Leukocytes [#/volume] in Blood by Automated countHigh4.1-10.5FHarrison Community HospitalpH Test strip (U)Ordered By: Maru Hayes on 12-01-9692eS (U)pH of Urine by Test strip5.0-9.0[facility] Medical CenterpH of Urine by Test strip Ordered By: Maru Hayes on 04-54-8517jF (U)5.0 [pH]Normal5.0-9.0[facility] Medical CenterComment on above:Order Comment: Name Collection Type:: Clean-Voided MidstreamPerformed By: #### UA #### [facility] [address] [place] [address] USAAmbulatory Visit Summaryon 97-82-7323Sqkbgizdur Visit SummaryAmbulatory Visit Summary JEREMIE BENNETT :1940 [...] Film) fluticasone nasal (fluticasone Nasal 0.05 mg/inh [place]) furosemide (furosemide 20 mg Tab) irbesartan (irbesartan [...] PM EDT With: Demetrius Cooper MD Where: [address] [id number]- Wednesday 2:30 PM EDT With: Where: [address] [address]- Wednesday 3:20 PM EDT With: Demetrius Cooper MD. Where: [place] [id number]- Medications What How Much When Instructions Unchanged [...] fluticasone nasal (fluticasone Nasal 0.05 mg/ inh [place]) See instructions USE 1 SPRAY IN BOTH [...] Cancer associated pain Cervic (more content not included)...[facility] Medicine Office/Clinic Noteon 58-46-0253Hvtrmn Medicine Office/Clinic NoteFoxborough State Hospital Medicine Office/Clinic Note Chief Complaint ACute [...] to opioid therapy Coronary artery disease involving elim 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 [...] procedure, Cataract, Cholecystectomy,Co (more content not included)... [facility] HospitalComment on above:Result Comment: Electronically Signed By: Demetrius Cooper MD\.br\Date and Time Signed: 09/14/24 07:51 EDT [facility] 68-32-6283WqokyntqcbLehigh Valley Hospital - [facility]elton Case Information Case Priority: None Programs: -- Referral Source: Store Gift Wrap Associate Referral Reason: Care coordination Case Type: Transition Care Management Risk Score: -- Case Status: Enrolled (August 22, 2024) Date Assigned: August 22, 2024 Assigned By: Galileo Tucker Date Enrolled: August 22, 2024 Assigned Primary Personnel: Galileo uTcker Assigned Secondary Personnel: -- Case Physician: Demetrius Cooper MD Problems Ongoing Bloating BMI 26.0-26.9,adult BMI 27.0-27.9,adult BMI 29.0-29.9,adult Cancer associated pain Cervical lymphadenopathy Cervical spondylosis Chronic GERD Constipation due to opioid therapy Coronary artery disease involving elim 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 [...] patch(es), Topical, q72hr fluticasone Nasal 0.05 mg/inh [place], See Instructions furosemide 20 mg Tab, 20 [...] mg= 1 tab(s), Oral, Daily Potassium Chloride (Nex-Dwwb-Tis M20) 20 mEq oral tablet, extended release [...] Patient states magic peggy (more content not included)...[facility] Urineon 44-31-6105Flmjywfl identified Cx Nom (U)Microbiology PROCEDURE: Urine Culture [R1] SOURCE: U Random BODY SITE: COLLECTED DATE/TIME: 08/30/2024 10:11 EDT RECEIVED DATE/TIME: 08/30/2024 18:09 EDT START DATE/TIME: 08/30/2024 18:09 EDT FREE TEXT SOURCE: Yajaira Dunn Jodi L FINAL REPORTS Final Report [] Verified Date/Time: 09/01/2024 10:22 EDT 200 cfu/ml Mixed skin contaminants Performing Locations R1: This test was performed at: [facility], [address] [place] [address], [id number] , [place], KpvmhoDsgjosHenry County HospitalComment on above:Performed By: #### [id number] #### [facility] [address] [place] [id number] Visit Summaryon 73-38-7655Bjmxgmykpl Visit Summary Ambulatory Visit Summary JEREMIE BENNETT [...] Film) fluticasone nasal (fluticasone Nasal 0.05 mg/inh [place]) furosemide (furosemide 20 mg Tab) irbesartan (irbesartan [...] mL oral solution) potassium chloride (Potassium Chloride (Aww-Oitu-Iei M20) 20 mEq oral tablet, extended release) [...] Appointments Wednesday 2:30 PM EDT With: Where: [address] [address]- Wednesday 3:20 PM EDT With: Allison CASON, Demetrius Rosa Where: [address] [address] Medications What How Much When Instructions Unchanged [...] fluticasone nasal (fluticasone Nasal 0.05 mg/ inh [place]) See instructions USE 1 SPRAY IN BOTH [...] DAILY Unchanged ondansetron (onda (more content not included)...[facility] Medicine Office/Clinic Noteon 23-94-6811Eqnqsu Medicine Office/Clinic NoteFami Medicine Office/Clinic Note Chief [...] Urnls Dip Stick Auto w/o Microscopy POC 90600 2. Urinary hesitancy (R39.11: Hesitancy of micturition) [...] to opioid therapy Coronary artery disease involving elim 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 [...] patch(es), Topical, q72hr fluticasone Nasal 0.05 mg/inh [place], See Instructions furosemide 20 mg Tab, 20 [...] Daily Potassium Chloride (Eq (more content not included)...[facility] HospitalComment on above:Result Comment: Electronically Signed By: Yajaira Dunn\.br\Date and Time Signed: 08/30/24 10:45 EDTFamily Medicine Office/Clinic Noteon 27-85-1770Ssudyr Medicine Office/Clinic NoteFami Medicine Office/Clinic Note Chief Complaint TCM follow up The patient presents with concerns related to chemotherapy and radiation treatment for oropharyngeal carcinoma. HPI Staff Pt presents today for TCM follow up [place] [facility] [place]: 08/19/24 Symptoms the patient presented [...] TCM Trans care mgmt 7 day disch [id number] 2. Aspiration pneumonia (J69.0: Pneumonitis due to inhalation of food and vomit) Patient improved after antibiotic treatment for aspiration pneumonia. Monitor respiratory status and nutritional challenges affecting swallowing. Ordered: Cardiac Rehab - Ambulatory Referral TCM Trans care mgmt 7 day disch [id number] 3. 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 Plan imaging for therapy assessment within three months. Focus on resolving sore throat impacting nutrition. Ordered: Cardiac Rehab - Ambulatory Referral TCM Trans care mgmt 7 day disch [id number] 4. 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 Schedule appropriate follow- up tests to monitoroncologic treatment outcomes. Ordered: Cardiac Rehab - Ambulatory Referral TCM Trans care mgmt 7 day disch [address] 5. Immunosuppression (D84.9: Immunodeficiency, unspecified) Continue to see oncology Ordered: Cardiac Rehab - Ambulatory Referral TCM Trans care mgmt 7 day disch 22820 6. 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 Evaluate non-opioid pain relief methods if feasible. Ordered: TCM Trans care mgmt 7 day disch 32695 7. Nausea (R11.0: Nausea) NO issues at this time. Ordered: TCM Trans care mgmt 7 day disch [id number] 8. BMI 27.0-27.9,adult (Z68.27: Body mass index [BMI] 27.0-27.9, adult) BMI education adde (more content not included)...[facility] County HospitalComment on above:Result Comment: Electronically Signed By: Demetrius Cooper MD\.br\Date and Time Signed: 08/24/24 09:00 EDTPre-Visit Planningon 08-24-2024 Pre-Visit PlanningPre-Visit Planning From: Bobbi Hall To: Demetrius Cooper MD; Sent: 08/23/2024 16:27:25 EDT Subject: Pre-Visit Planning Due Date/Time: 08/23/2024 16:27:00 EDT Caller Name: JEREMIE BENNETT; Caller Number: , [place] Dr. Cooper. During a pre-visit planning chart [...] feel free to contact me at extension [phone]. Thank you! Bobbi Hall LPN Clinical [employer] [place] [address] Extension: [phone] [email or web address] From: Demetrius Cooper MD To: Bobbi Hall; Sent: 08/24/2024 11:34:18 EDT Subject: RE: Pre-Visit Planning Caller Name: JEREMIE BENNETT; Caller Number: H , Adrian Please [facility] 08-22-2024 [facility] Case Information Case Priority: None Programs: -- Referral Source: [employer] Associate Referral Reason: Care coordination Case Type: Transition Care Management Risk Score: -- Case Status: Enrolled (August 22, 2024) Date Assigned: August 22, 2024 Assigned By: Galileo Tucker Date Enrolled: August 22, 2024 Assigned Primary Personnel: Galileo Tucker Assigned Secondary Personnel: -- Case Physician: Demetrius Cooper MD Problems Ongoing Bloating BMI 29.0-29.9,adult Cervical lymphadenopathy Cervical spondylosis Chronic GERD Coronary artery disease involving elim 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 [...] patch(es), Topical, q72hr fluticasone Nasal 0.05 mg/inh [place], See Instructions furosemide 20 mg Tab, 20 [...] Care Plan Progress Note Ad[place]: [place] [facility] [place]: 08/21/24 Follow-up appointment scheduled? yes, Dr. Cooper [facility] f/u 08/24/24 at 0745 Did you [...] difficult to swallow Ar (more content not included)...[facility] County HospitalAlanine aminotransferase [Enzymatic activity/volume] in Serum or PlasmaOrdered By: Jaiden Nance on 82-90-1432OLK [Catalytic activity/Vol]Alanine aminotransferase [Enzymatic activity/volume] in Serum or PlasmaAdams County Regional Medical CenterAlbumin [Mass/volume] in Serum or Plasma by Bromocresol green (BCG) dye binding methoOrdered By: Jaiden Nance on 37-39-5411Uvndqua BCG dye [Mass/Vol] Albumin [Mass/volume] in Serum or Plasma by Bromocresol green (BCG) dye binding methoLow3.5-5.7FHarrison Community HospitalAlkaline phosphatase [Enzymatic activity/volume] in Serum or PlasmaOrdered By: Jaiden Nance on 17-20-8240NIX [Catalytic activity/Vol]Alkaline phosphatase [Enzymatic activity/volume] in Serum or Hwtghq75-130KyumvbvkjAdams County Regional Medical CenterAspartate aminotransferase [Enzymatic activity/volume] in Serum or PlasmaOrdered By: Jaiden Nance on 47-31-6664ORK [Catalytic activity/Vol]Aspartate aminotransferase [Enzymatic activity/volume] in Serum or Voxxjg62-12TybgpayjqAdams County Regional Medical Center Basophils Auto (Bld) [#/Vol]Ordered By: Jaiden Nance on 55-46-7246Xdtedhvtj (Bld) [#/Vol]Automated basophil count0.0-0.2FHarrison Community Hospital Basophils/100 WBC Auto (Bld)Ordered By: Jaiden Nance on 82-45-2850Udofonjvi/100 WBC (Bld)Automated basophil %.[facility] Medical CenterBilirubin.total [Mass/volume] in Serum or PlasmaOrdered By: Jaiden Nance on 58-30-1047Ljzpjqpcy [Mass/Vol]Bilirubin.total [Mass/volume] in Serum or Plasma0.3-1.0Ad[facility] Medical CenterCT chest wo conon 86-24-4837BS chest [place] [address] CT Scan Report Signed Patient: Jeremie Bennett MR#: [id number] : 1940 Acct:[id number] Age/Sex: 83 / M ADM Date: 08/20/24 Loc: Room: [address] [place] [address] Type: ADM IN Attending Dr: Jaiden Nance [...] Christian Melton M.D.08/21/2024 5:58 AM Dictation Location: [place] [address] Transcribed By: [facility] 08/21/24 0558 Dictated By: Christian Melton DO 08/21/24 0555 Signed By: 08/21/24 0558[facility] Physician GroupCalcium [Mass/volume] in Serum or PlasmaOrdered By: Jaiden Nance on 12-10-3243Uefyktp [Mass/Vol]Calcium [Mass/volume] in Serum or PlasmaLow8.6-10.3FHarrison Community Hospital Carbon dioxide, total [Moles/volume] in Serum or PlasmaOrdered By: Jaiden Nance on 34-42-7412CI0 [Moles/Vol]Carbon dioxide, total [Moles/volume] in Serum or Gafmmj07.0-31.0Ad[facility] Medical CenterChloride [Moles/volume] in Serum or PlasmaOrdered By: Jaiden Nance on 63-92-0167Kgbwocqf [Moles/Vol]Chloride [Moles/volume] in Serum or BtybhrItnx04-616XienjiaxkAdams County Regional Medical Center Complete Blood Count Auto Diffon 23-03-2060Qafhiohkh (Bld) [#/Vol]0.0 10*3/uL Normal0.0-0.2The [facility] Physician GroupComment on above:Result Comment: PERFORMED BY: [place] [address] PATHOLOGIST PERSONAL CARE AID HEBER SHANNON M.D.Performed By: #### UA #### [place] [address] USABasophils/100 WBC (Bld)0.6 %Normal.The [facility] Physician GroupComment on above:Performed By: #### UA #### [place] [address] USAEosinophils (Bld) [#/Vol]0.1 10*3/uLNormal0.0-0.45The Former[facility] Hospital Physician GroupComment on above:Performed By: #### UA #### [place] [address] USAEosinophils/100 WBC (Bld)1.0 %Normal.The [facility] Physician GroupComment on above:Performed By: #### UA #### [place] [address] USAErythrocyte distribution width (RBC) [Ratio]14.8 %Normal 12.0-14.8The Former[facility] Physician GroupComment on above:Performed By: #### UA #### [place] [address] USAHematocrit (Bld) [Volume fraction]30.5 %Low38.8-50.0The Former[facility] Physician GroupComment on above:Performed By: #### UA #### [place] [address] USAHemoglobin (Bld) [Mass/Vol]10.4 g/dLLow13.0-17.0The [facility] Physician GroupComment on above:Performed By: #### UA #### [place] [address] USALymphocytes (Bld) [#/Vol]0.6 10*3/uLLow1.00-4.8The [facility] Physician GroupComment on above:Performed By: #### UA #### [facility] [address] [place] [address] USALymphocytes/100 WBC (Bld)9.0 %Normal.The Former[facility] Physician GroupComment on above:Performed By: #### UA #### [facility] [address]H (RBC) [Entitic mass]31.3 dnUcwkzs51.5-35.2The Formerly [facility] Physician GroupComment on above:Performed By: #### UA #### [facility] [address]V (RBC) [Entitic vol]91.6 wYNdmhad64.5-101The Former[facility] Physician GroupComment on above:Performed By: #### UA #### [facility] [address] [place] [address] USAMean Corpuscular HGB Conc34.2 g/yREaydxi51.5-35.6The Former[facility] Physician GroupComment on above:Performed By: #### UA #### [facility] [address] [place] [address] USAMonocytes (Bld) [#/Vol]0.8 10*3/uLNormal0.0-0.8The Former[facility] Physician GroupComment on above:Performed By: #### UA #### [facility] [address] [place] [address] USAMonocytes/100 WBC (Bld)13.6 %Normal.The [facility] Physician GroupComment on above:Performed By: #### UA #### [facility] [address] [place] [address] USANeutrophils (Bld) [#/Vol]4.7 10*3/uLNormal1.8-7.7The Former[facility] Physician GroupComment on above:Performed By: #### UA #### [facility] [address] [place] [address] USANeutrophils/100 WBC (Bld)75.8 %Normal.The [facility] Physician GroupComment on above:Performed By: #### UA #### [facility] [address] [place] [address] USANRBC%0.1 /100{WBC}Normal0-0.5The [facility] Comment on above:Performed By: #### UA #### [facility] [address] [place] [address] USAPlatelet mean volume (Bld) [Entitic vol]8.2 fLNormal 6.6-10.1The Former[facility] Physician GroupComment on above:Performed By: #### UA #### [place] [address] USAPlatelets (Bld) [#/Vol]190 10*3/lBBkalaq448-545Fbn Former[facility] Physician GroupComment on above:Performed By: #### UA #### [place] [address] USARBC (Bld) [#/Vol]3.33 10*6/uLLow3.90-5.60The Former[facility] Physician GroupComment on above:Performed By: #### UA #### [place] [address] USAWBC (Bld) [#/Vol]6.2 10*3/uLNormal4.1-10.5The [facility] Physician GroupComment on above:Performed By: #### UA #### [place] [address] USAComprehensive Metabolic Panelon 66-31-5930Dsejvut [Mass/Vol]2.9 g/dLLow3.5-5.7The [facility] Physician GroupComment on above: Performed By: #### UA #### [place] [address] USAAlbumin/Globulin [Mass ratio]1.2 {ratio}NormalThe Formerly [facility] Physician GroupComment on above:Performed By: #### UA #### [place] [address] USAALP [Catalytic activity/Vol]52 U/TTtczdi40-266Pyp [facility] Physician GroupComment on above:Performed By: #### UA #### [facility] [address] [place] [address] USAALT [Catalytic activity/Vol]14 U/LNormal7-52The Former[facility] Physician GroupComment on above:Performed By: #### UA #### [facility] [address] [place] [address] USAAnion gap [Moles/Vol]9.1 mmol/LNormal6.0-15.0The Former[facility] Physician GroupComment on above:Performed By: #### UA #### [facility] [address] [place] [address] USAAST [Catalytic activity/Vol]15 U/IJjihpm77-06Bcu Former[facility] Physician GroupComment on above:Performed By: #### UA #### [facility] [address] [place] [address] USABilirubin [Mass/Vol]0.6 mg/dLNormal0.3-1.0The Former[facility] Physician GroupComment on above:Performed By: #### UA #### [facility] [address] [place] [address] USACalcium [Mass/Vol]8.2 mg/dLLow8.6-10.3The Former[facility] Physician GroupComment on above:Performed By: #### UA #### [facility] [address] [place] [address] USAChloride [Moles/Vol]108 mmol/WJqpl99-221Rbq Former[facility] Physician GroupComment on above:Performed By: #### UA #### [facility] [address] [place] [address] USACO2 [Moles/Vol]24.2 mmol/TVynhka89.0-31.0The [facility] Physician GroupComment on above:Performed By: #### UA #### [facility] [address] [place] [address] USACreatinine [Mass/Vol]0.75 mg/dLNormal0.70-1.30The Former[facility] Physician GroupComment on above:Performed By: #### UA #### [facility] [address] [place], [place] [address] USACreatinine Clr Calc Mhnksvsj90.79NormKindred Hospital Daytone Formerly [facility] Physician GroupComment on above:Performed By: #### UA #### [place] [address] USAGFR/1.73 sq M.predicted MDRD (S/P/Bld) [Vol rate/Area] mL/min/{1.73_m2}NormalThe Formerly [facility] Physician GroupComment on above:Performed By: #### UA #### [place] [address] USAGlobulin (S) [Mass/Vol]2.4 g/dLNoNovant Health Thomasville Medical Center Physician GroupComment on above:Performed By: #### UA #### [place] [address] USAGlucose [Mass/Vol]94 mg/lVVbyprr10-896Eub [facility] Physician GroupComment on above:Result Comment: Random Glucose Reference Range is dependent on time and content of last meal. Glucose of more than 200 mg/dL in a nonstressed, ambulatory subject supports the diagnosis of Diabetes Mellitus. ADA recommended reference rangePerformed By: #### UA #### [place] [address] USAPotassium [Moles/Vol]3.3 mmol/LLow3.5-5.1The [facility] Physician GroupComment on above:Performed By: #### UA #### [place] [address] USAProtein [Mass/Vol]5.3 g/dLLow6.4-8.9The [facility] Physician GroupComment on above:Performed By: #### UA #### [place] [address] USASodium [Moles/Vol]138 mmol/EOuvsya688-599Bnc [facility] Physician GroupComment on above:Performed By: #### UA #### [place] [address] USAUrea nitrogen [Mass/Vol]10 mg/dLNormal7-25The [facility] Physician GroupComment on above:Performed By: #### UA #### [facility] [address] [place] [address] USACreatinine [Mass/volume] in Serum or PlasmaOrdered By: Jaiden Nance on 63-54-1894Nxyokvswql [Mass/Vol]Creatinine [Mass/volume] in Serum or Plasma0.70-1.30[facility] Medical CenterEosinophils Auto (Bld) [#/Vol]Ordered By: Jaiden Nance on 88-40-4103Zrjgamlqosk (Bld) [#/Vol]Automated eosinophil count0.0-0.45[facility] Medical CenterEosinophils/100 WBC Auto (Bld)Ordered By: Jaiden Nance on 74-35-0701Wazrpltzhcy/100 WBC (Bld) Automated eosinophil %.[facility] Medical CenterErythrocyte distribution width Auto (RBC) [Ratio]Ordered By: Jaidne Nance on 91-28-6999Fnumnotmffs distribution width (RBC) [Ratio]Erythrocyte distribution width [Ratio] by Automated count12.0-14.8[facility] Medical CenterGlobulin Calc (S) [Mass/Vol]Ordered By: Jaiden Nance on 36-10-9876Yjaialre (S) [Mass/Vol]Serum globulin measurement by calculation (mass/volume)[facility] CenterGlucose [Mass/volume] in Serum or PlasmaOrdered By: Jaiden Nance on 98-56-3447Xsstaxn [Mass/Vol]Glucose [Mass/volume] in Serum or Izhedu78-123 [facility] Medical CenterComment on above:ADA recommended reference rangeRandom Glucose Reference Range is dependent on time and content of last meal. Glucose of more than 200 mg/dL in a nonstressed, ambulatory subject supports the diagnosisof Diabetes Mellitus.Hematocrit Auto (Bld) [Volume fraction]Ordered By: Jaiden Nance on 64-16-9876Cpklfgefjn (Bld) [Volume fraction]Hematocrit [Volume Fraction] of Blood by Automated nlshaBzs48.8-50.0 [facility] CenterHemoglobin [Mass/volume] in BloodOrdered By: Jaiden Nance on 05-34-5818Eegvaldkpe (Bld) [Mass/Vol]Hemoglobin [Mass/volume] in AssuvFcm42.0-17.0[facility] Medical CenterLeukocytes [#/volume] corrected for nucleated erythrocytes in Blood by Automated counOrdered By: Jaiden Nance on 59-79-1675LLQ corrected for nucl RBC Auto (Bld) [#/Vol] Leukocytes [#/volume] corrected for nucleated erythrocytes in Blood by Automated coun4.1-10.5FHarrison Community HospitalLymphocytes Auto (Bld) [#/Vol] Ordered By: Jaiden Nance on 13-52-4231Vlnbbmavvqh (Bld) [#/Vol]Lymphocytes [#/volume] in Blood by Automated countLow1.00-4.8[facility] Medical CenterLymphocytes/100 WBC Auto (Bld)Ordered By: Jaiden Nance on 08-21-2024 Lymphocytes/100 WBC (Bld)Lymphocytes/100 leukocytes in Blood by Automated count. [facility] CampusH Auto (RBC) [Entitic mass]Ordered By: Jaiden Nance on 76-12-8289MFY (RBC) [Entitic mass]MCH [Entitic mass] by Automated count27.5-35.2FHarrison Community HospitalMCHC Auto (RBC) [Mass/Vol]Ordered By: Jaiden Nance on 53-91-8442JVYA (RBC) [Mass/Vol]MCHC [Mass/volume] by Automated count32.5-35.6FUniversity Hospitals St. John Medical CenterV Auto (RBC) [Entitic vol]Ordered By: Jaiden Nance on 22-89-4483VHH (RBC) [Entitic vol]MCV [Entitic volume] by Automated count83.5-101[facility] Medical CenterMagnesiumon 75-24-1281Bhxrlehkq [Mass/Vol]1.8 mg/dLLow1.9-2.7The [facility] Physician GroupComment on above:Result Comment: PERFORMED BY: [place] [address] PATHOLOGIST PERSONAL CARE AID HEBER SHANNON M.D.Performed By: #### UA #### [place] [address] USAMagnesium [Mass/volume] in Serum or PlasmaOrdered By: Jaiden Nance on 81-08-9765Afhtbxezr [Mass/Vol]Magnesium [Mass/volume] in Serum or PlasmaLow1.9-2.7FHarrison Community HospitalMonocytes Auto (Bld) [#/Vol] Ordered By: Jaiden Nance on 39-31-7855Lqverobnf (Bld) [#/Vol]Automated blood monocyte count0.0-0.8[facility] Medical CenterMonocytes/100 WBC Auto (Bld)Ordered By: Jaiden Nance on 04-27-9297Tayvjhhix/100 WBC (Bld)Automated monocyte %.[facility] Medical CenterNeutrophils Auto (Bld) [#/Vol] Ordered By: Jaiden Nance on 12-91-3853Jbwgydblqjg (Bld) [#/Vol]Neutrophils [#/volume] in Blood by Automated count1.8-7.7FH[facility] Hospital Neutrophils/100 WBC Auto (Bld)Ordered By: Jaiden Nance on 08-21-2024 Neutrophils/100 WBC (Bld)Automated neutrophil %.[facility] CenterNo Panel InformationOrdered By: Jaiden Nance on 25-67-5404Qiresgahp GFR (CKD-EPI)> 60.0 mL/MinAdams County Regional Medical CenterPharmacy Creatinine Clearance (Chem59.79[facility] Medical CenterNucleated erythrocytes [Presence] in Blood by Automated countOrdered By: Jaiden Nance on 08-21-2024 Nucleated RBC Auto Ql (Bld)Nucleated erythrocytes [Presence] in Blood by Automated count0-0.5FHarrison Community HospitalPlatelet mean volume Auto (Bld) [Entitic vol]Ordered By: Jaiden Nance on 49-00-9416Remmdalm mean volume (Bld) [Entitic vol]Platelet mean volume [Entitic volume] in Blood by Automated count6.6-10.1FHarrison Community HospitalPlatelets Auto (Bld) [#/Vol] Ordered By: Jaiden Nance on 23-00-0242Rqvywqvrw (Bld) [#/Vol]Platelets [#/volume] in Blood by Automated lotgq065-393YwzogepwpAdams County Regional Medical Center Potassium [Moles/volume] in Serum or PlasmaOrdered By: Jaiden Nance on 47-07-5584Nofefrhpd [Moles/Vol]Potassium [Moles/volume] in Serum or PlasmaLow 3.5-5.1FHarrison Community HospitalProtein [Mass/volume] in Serum or Plasma Ordered By: Jaiden Nance on 15-01-8327Vgnhdox [Mass/Vol]Protein [Mass/volume] in Serum or PlasmaLow6.4-8.9[facility] Medical CenterRBC Auto (Bld) [#/Vol]Ordered By: Jaiden Nance on 54-82-3548JWE (Bld) [#/Vol]Erythrocytes [#/volume] in Blood by Automated countLow3.90-5.60The Jewish Hospitalerum or plasma albumin/globulin mass ratioOrdered By: Jaiden Nance on 36-51-2250Jcpxeai/Globulin [Mass ratio]Serum or plasma albumin/globulin mass ratioThe Jewish Hospitalerum or plasma anion gap determination Ordered By: Jaiden Nance on 55-05-7919Gjoii gap [Moles/Vol]Serum or plasma anion gap determination6.0-15.0The Jewish Hospitalodium [Moles/volume] in Serum or PlasmaOrdered By: Jaiden Nance on 62-47-0472Axwcvn [Moles/Vol] Sodium [Moles/volume] in Serum or Fsbbpi897-125JvczsnuemAdams County Regional Medical Center Urea nitrogen [Mass/volume] in Serum or PlasmaOrdered By: Jaiden Nance on 99-99-7585Vdrh nitrogen [Mass/Vol]Urea nitrogen [Mass/volume] in Serum or Plasma 7-25[facility] Medical CenterWBC Auto (Bld) [#/Vol]Ordered By: Jaiden Nance on 75-43-9513EZY (Bld) [#/Vol]Leukocytes [#/volume] in Blood by Automated count4.1-10.5FHarrison Community HospitalAlanine aminotransferase [Enzymatic activity/volume] in Serum or PlasmaOrdered By: Louie Marrero on 27-83-5860PJX [Catalytic activity/Vol]Alanine aminotransferase [Enzymatic activity/volume] in Serum or Plasma7-52[facility] Medical CenterAlbumin [Mass/volume] in Serum or Plasma by Bromocresol green (BCG) dye binding metho Ordered By: Louie Marrero on 57-03-3475Isqjgrd BCG dye [Mass/Vol]Albumin [Mass/volume] in Serum or Plasma by Bromocresol green (BCG) dye binding methoLow 3.5-5.7FHarrison Community HospitalAlkaline phosphatase [Enzymatic activity/volume] in Serum or PlasmaOrdered By: Louie Marrero on 96-50-2330GQP [Catalytic activity/Vol]Alkaline phosphatase [Enzymatic activity/volume] in Serum or Twmuik66-812DorxvmtdtAdams County Regional Medical CenterAppearance of UrineOrdered By: Louie Marrero on 42-58-9772Jlqedabwgw (U)Urine appearanceClearFHarrison Community HospitalAspartate aminotransferase [Enzymatic activity/volume] in Serum or PlasmaOrdered By: Louie Marrero on 04-66-1700IOG [Catalytic activity/Vol]Aspartate aminotransferase [Enzymatic activity/volume] in Serum or Gcoaxs69-00EmlndfgxeAdams County Regional Medical CenterBasophils Auto (Bld) [#/Vol]Ordered By: Louie Marrero on 78-72-9873Lprsbtkdk (Bld) [#/Vol]Automated basophil count 0.0-0.2FHarrison Community HospitalBasophils/100 WBC Auto (Bld)Ordered By: Louie Marrero on 04-54-0589Ggtxeafhm/100 WBC (Bld)Automated basophil %.[facility] Medical CenterBilirubin Test strip Ql (U)Ordered By: Louie Marrero on 25-23-8888Fjzhoqiwc Ql (U)Bilirubin.total [Presence] in Urine by Test strip NegativeAdams County Regional Medical CenterBilirubin.total [Mass/volume] in Serum or PlasmaOrdered By: Louie Marrero on 48-50-0510Oubsoyzvi [Mass/Vol] Bilirubin.total [Mass/volume] in Serum or Plasma0.3-1.0[facility] Medical CenterBioFire Not Detectedon 62-30-6256XruJtlt Not DetectedNot detected NormalNot DetecteThe Formerly [facility] Hospital Physician GroupComment on above:Result Comment: This is a duplicate RP2.1 COVID (PCR) result to be used for statistical tracking purpose only. PERFORMED BY: [facility] [address] [place] [address] PATHOLOGIST PERSONAL CARE AID HEBER SHANNON M.D.Performed By: #### MG, SCAN CBC, CMP #### [facility] [address] [place] [address] USABlood Cultureon 19-99-4154Gnibsmvk identified Cx Nom (Bld) MISSED X1 PT REFUSED TO LET ME TRY AGAIN RN NORRIS KNOWS NO GROWTH 5 DAYS PERFORMED BY: [place] [address] PATHOLOGIST PERSONAL CARE AID HEBER SHANNON M.D.NormalBaptist Medical Center Physician GroupComment on above: Performed By: #### ESR #### [place] [address] USABacteria identified Cx Nom (Bld)right chest NO GROWTH 5 DAYS PERFORMED BY: [place] [address] PATHOLOGIST PERSONAL CARE AID HEBER SHANNON M.D.NormalBaptist Medical Center Physician GroupComment on above: Performed By: #### ESR #### [place] [address] USAC reactive protein [Mass/volume] in Serum or PlasmaOrdered By: Louie Marrero on 55-07-1019LML [Mass/Vol]C reactive protein [Mass/volume] in Serum or PlasmaHigh0.0-0.5FHarrison Community HospitalC-Reactive Protein on 29-00-0429W-Reactive Protein3.3 mg/dLHigh0.0-0.5The [facility] Comment on above:Result Comment: PERFORMED BY: [place] [address] PATHOLOGIST PERSONAL CARE AID HEBER SHANNON M.D.Performed By: #### ESR #### [place] [address] USACOVID-19 Detected/Not DetectedOrdered By: Louie Marrero on 85-79-0900WJCO-CoV-2 (COVID-19) RNA MICHELLE+non-probe Ql (Nph)Not detectedNot DetecteFHarrison Community HospitalComment on above:This is a duplicate RP2.1 COVID (PCR) result to be used for statistical tracking purpose only. Calcium [Mass/volume] in Serum or PlasmaOrdered By: Louie Marrero on 08-20-2024 Calcium [Mass/Vol]Calcium [Mass/volume] in Serum or PlasmaLow8.6-10.3FHarrison Community HospitalCarbon dioxide, total [Moles/volume] in Serum or Plasma Ordered By: Louie Marrero on 22-50-3816RC6 [Moles/Vol]Carbon dioxide, total [Moles/volume] in Serum or Pwajvp07.0-31.0[facility] Chloride [Moles/volume] in Serum or PlasmaOrdered By: Louie Marrero on 52-16-7458Feslvmtv [Moles/Vol]Chloride [Moles/volume] in Serum or Gasjjj47-624 [facility] CenterColor Auto (U)Ordered By: Louie Marrero on 05-88-1972Onexk (U)Color of Urine by AutoYellowAdams County Regional Medical Center Complete Blood Count Auto Diffon 82-24-3045Pmnwpahbs (Bld) [#/Vol]0.0 10*3/uL Normal0.0-0.2The Former[facility] Physician GroupComment on above:Result Comment: PERFORMED BY: [place] [address] PATHOLOGIST PERSONAL CARE AID HEBER SHANNON M.D.Performed By: #### UA #### [facility] [address] [place] [address] USABasophils/100 WBC (Bld)0.5 %Normal.The Former[facility] Hospital Physician GroupComment on above:Performed By: #### UA #### [facility] [address] [place] [address] USAEosinophils (Bld) [#/Vol]0.1 10*3/uLNormal0.0-0.45The [facility] Physician GroupComment on above:Performed By: #### UA #### [facility] [address] [place] [address] USAEosinophils/100 WBC (Bld)0.7 %Normal.The [facility] Physician GroupComment on above:Performed By: #### UA #### [place] [address] USAErythrocyte distribution width (RBC) [Ratio]14.8 %Normal 12.0-14.8The [facility]ly [facility] Physician GroupComment on above:Performed By: #### UA #### [place] [address] USAHematocrit (Bld) [Volume fraction]34.2 %Low38.8-50.0The Formerly [facility] Physician GroupComment on above:Performed By: #### UA #### [place] [address] USAHemoglobin (Bld) [Mass/Vol]11.4 g/dLLow13.0-17.0The [facility] Physician GroupComment on above:Performed By: #### UA #### [place] [address] USALymphocytes (Bld) [#/Vol]0.8 10*3/uLLow1.00-4.8The Formerly [facility] Physician GroupComment on above:Performed By: #### UA #### [place] [address] USALymphocytes/100 WBC (Bld)10.5 %Normal.The [facility] Physician GroupComment on above:Performed By: #### UA #### [place] [address] USAMCH (RBC) [Entitic mass]31.0 umQzrkjn46.5-35.2The Formerly [facility] Physician GroupComment on above:Performed By: #### UA #### [place] [address] USAMCV (RBC) [Entitic vol]92.9 yIKrupyy00.5-101The Formerly [facility] Physician GroupComment on above:Performed By: #### UA #### [place] [address] USAMean Corpuscular HGB Conc33.4 g/lZRpxdjc01.5-35.6The Former[facility] Physician GroupComment on above:Performed By: #### UA #### [place] [address] USAMonocytes (Bld) [#/Vol]0.8 10*3/uLNormal0.0-0.8The Former[facility] Physician GroupComment on above:Performed By: #### UA #### [place] [address] USAMonocytes/100 WBC (Bld)23.19 %High0.00-20.00The Formerly [facility] Physician GroupComment on above:Result Comment: For adults in ED, MDW > 20.0 may be associated with a higher risk of sepsis during the first 12 hrs of hospital admissionPerformed By: #### UA #### [place] [address] USAMonocytes/100 WBC (Bld)11.3 %Normal.The [facility] Physician GroupComment on above:Performed By: #### UA #### [place] [address] USANeutrophils (Bld) [#/Vol]5.7 10*3/uLNormal1.8-7.7The Formerly [facility] Physician GroupComment on above:Performed By: #### UA #### [place] [address] USANeutrophils/100 WBC (Bld)77.0 %Normal.The [facility] Physician GroupComment on above:Performed By: #### UA #### [place] [address] USANRBC%0.2 /100{WBC}Normal0-0.5The [facility] Comment on above:Performed By: #### UA #### [place] [address] USAPlatelet mean volume (Bld) [Entitic vol]8.1 fLNormal 6.6-10.1The Formerly [facility] Physician GroupComment on above:Performed By: #### UA #### [place] [address] USAPlatelets (Bld) [#/Vol]234 10*3/kGOqjqck968-723Mrl [facility] Physician GroupComment on above:Performed By: #### UA #### [place] [address] USARBC (Bld) [#/Vol]3.68 10*6/uLLow3.90-5.60The Formerly [facility] Physician GroupComment on above:Performed By: #### UA #### [place] [address] USAWBC (Bld) [#/Vol]7.4 10*3/uLNormal4.1-10.5The Former[facility] Physician GroupComment on above:Performed By: #### UA #### [place] [address] USAComprehensive Metabolic Panelon 85-65-6680Hbjuawc [Mass/Vol]3.4 g/dLLow3.5-5.7The Formerly [facility] Physician GroupComment on above: Performed By: #### ESR #### [facility] [address] [place] [address] USAAlbumin/Globulin [Mass ratio]1.4 {ratio}NormalThe Formerly [facility] Physician GroupComment on above:Performed By: #### ESR #### [place] [address] USAALP [Catalytic activity/Vol]66 U/HRgfipx73-641Lom Former[facility] Physician GroupComment on above:Performed By: #### ESR #### [place] [address] USAALT [Catalytic activity/Vol]17 U/LNormal7-52The Former[facility] Physician GroupComment on above:Performed By: #### ESR #### [place] [address] USAAnion gap [Moles/Vol]10.3 mmol/LNormal6.0-15.0The Former[facility] Physician GroupComment on above:Performed By: #### ESR #### [facility] [address] [place] [address] USAAST [Catalytic activity/Vol]18 U/KLowxnh07-98Ali Former[facility] Physician GroupComment on above:Performed By: #### ESR #### [facility] [address] [place] [address] USABilirubin [Mass/Vol]0.6 mg/dLNormal0.3-1.0The Formerly [facility] Physician GroupComment on above:Performed By: #### ESR #### [facility] [address] [place] [address] USACalcium [Mass/Vol]8.4 mg/dLLow8.6-10.3The Formerly [facility] Physician GroupComment on above:Performed By: #### ESR #### [place] [address] USAChloride [Moles/Vol]104 mmol/HJlsfzw09-092Xwp Former[facility] Physician GroupComment on above:Performed By: #### ESR #### [facility] [address] [place] [address] USACO2 [Moles/Vol]25.4 mmol/ZVzfdyl85.0-31.0The Formerly [facility] Physician GroupComment on above:Performed By: #### ESR #### [facility] [address] [place] [address] USACreatinine [Mass/Vol]0.85 mg/dLNormal0.70-1.30The Formerly [facility] Physician GroupComment on above:Performed By: #### ESR #### [place] [address] USACreatinine Clr Calc Uwjuaqim47.71NormalThe Formerly [facility] Physician GroupComment on above:Result Comment: PERFORMED BY: [place] [address] PATHOLOGIST PERSONAL CARE AID HEBER SHANNON M.D.Performed By: #### ESR #### [place] [address] USAGFR/1.73 sq M.predicted MDRD (S/P/Bld) [Vol rate/Area] mL/min/{1.73_m2}NormalThe Formerly [facility] Physician GroupComment on above:Performed By: #### ESR #### [facility] [address] [place] [address] USAGlobulin (S) [Mass/Vol]2.5 g/dLNormalThe [facility] Physician GroupComment on above:Performed By: #### ESR #### [place] [address] USAGlucose [Mass/Vol]106 mg/dKCaii59-439Lap [facility] Physician GroupComment on above:Result Comment: Random Glucose Reference Range is dependent on time and content of last meal. Glucose of more than 200 mg/dL in a nonstressed, ambulatory subject supports the diagnosis of Diabetes Mellitus. ADA recommended reference rangePerformed By: #### ESR #### [place] [address] USAPotassium [Moles/Vol]3.7 mmol/LNormal3.5-5.1The [facility] Physician GroupComment on above:Performed By: #### ESR #### [place] [address] USAProtein [Mass/Vol]5.9 g/dLLow6.4-8.9The [facility] Physician GroupComment on above:Performed By: #### ESR #### [place] [address] USASodium [Moles/Vol]136 mmol/NZhisxh768-595Tqe Former[facility] Physician GroupComment on above:Performed By: #### ESR #### [place] [address] USAUrea nitrogen [Mass/Vol]16 mg/dLNormal7-25The [facility] Physician GroupComment on above:Performed By: #### ESR #### [place] [address] USACreatinine [Mass/volume] in Serum or PlasmaOrdered By: Louie Marrero on 64-44-3259Rvrssubxtp [Mass/Vol]Creatinine [Mass/volume] in Serum or Plasma0.70-1.30[facility] CenterECG 12 lead ECGon 59-77-9652ZQC 12 lead ECGSCCI [place] [address] Electrocardiograph Report Signed Patient: Jeremie Bennett MR#: [id number] : 1940 Acct:[id number] Age/Sex: 83 / M ADM Date: 08/20/24 [...] ECGs available Confirmed by LOUIE MARRERO DO ([id number]) on 08/20/2024 7:55:25 PM Referred By: Electronically Signed By: LOUIE MARRERO DO Transcribed By: MUS Signed By Louie Marrero DO 08/[address] [place] [address] Physician GroupEosinophils Auto (Bld) [#/Vol]Ordered By: Louie Marrero on 72-47-7864Ioxqjqxbzgu (Bld) [#/Vol]Automated eosinophil count0.0-0.45[facility] CenterEosinophils/100 WBC Auto (Bld) Ordered By: Louie Marrero on 10-13-7424Pqnuazlbphk/100 WBC (Bld)Automated eosinophil %.[facility] CenterErythrocyte Sedimentation Rateon 89-37-5561FCY (Bld) [Velocity]42 mm/hHigh0-19The [facility] Comment on above:Result Comment: PERFORMED BY: [place] [address] PATHOLOGIST PERSONAL CARE AID HEBER SHANNON M.D.Performed By: #### ESR #### [place] [address] USAErythrocyte distribution width Auto (RBC) [Ratio]Ordered By: Louie Marrero on 03-02-0804Sprvyklyjlp distribution width (RBC) [Ratio] Erythrocyte distribution width [Ratio] by Automated count12.0-14.8[facility] CenterErythrocyte sedimentation rate by Photometric method Ordered By: Jaiden Nance on 73-55-5882WOI Photometric method (Bld) [Velocity] Erythrocyte sedimentation rate by Photometric methodHigh0-19[facility] CenterGlobulin Calc (S) [Mass/Vol]Ordered By: Louie Marrero on 65-12-0389Yuekwczk (S) [Mass/Vol]Serum globulin measurement by calculation (mass/volume)[facility] CenterGlucose [Mass/volume] in Serum or PlasmaOrdered By: Louie Marrero on 45-69-9905Aawluqe [Mass/Vol]Glucose [Mass/volume] in Serum or CmagclJzzs79-561QfopnqzaiAd[facility] Regional Medical Center Comment on above:ADA recommended reference rangeRandom Glucose Reference Range is dependent on time and content of last meal. Glucose of more than 200 mg/dL in a nonstressed, ambulatory subject supports the diagnosisof Diabetes Mellitus. Glucose [Mass/volume] in Urine by Test stripOrdered By: Louie Marrero on 77-55-7411Zhroakp Test strip (U) [Mass/Vol]Glucose [Mass/volume] in Urine by Test stripNormalAdams County Regional Medical CenterHematocrit Auto (Bld) [Volume fraction]Ordered By: Louie Marrero on 37-31-5030Mqzdvlmrml (Bld) [Volume fraction]Hematocrit [Volume Fraction] of Blood by Automated xvcirIuo41.8-50.0 [facility] CenterHemoglobin Test strip Ql (U)Ordered By: Louie Marrero on 58-60-5562Qvowjmxsev Ql (U)Hemoglobin [Presence] in Urine by Test stripNegativeAdams County Regional Medical CenterHemoglobin [Mass/volume] in Blood Ordered By: Louie Marrero 67-22-1811Baoamvlkkk (Bld) [Mass/Vol]Hemoglobin [Mass/volume] in NtdsdIiz23.0-17.0[facility] CenterINR in Platelet poor plasma by Coagulation assayOrdered By: Louie Marrero on 08-20-2024 INR Coag (PPP) [Relative time]INR in Platelet poor plasma by Coagulation assay [facility] CenterComment on above:INR Therapeutic Range A) Pre- and [...] strip Ql (U)Ordered By: Louie Marrero on 07-76-9034Ndeunyk Ql (U)Ketones [Presence] in Urine by Test stripHighNegativeAdams County Regional Medical CenterLaboratory - Microbiology and Antimicrobial susceptibilityOrdered By: Louie Marrero on 72-22-2187Tuwyqtnf identified Cx Nom (Bld)NO GROWTH 5 DAYSAdams County Regional Medical CenterBacteria identified Cx Nom (Bld)NO GROWTH 5 DAYSAdams County Regional Medical CenterLactate [Moles/volume] in Serum or PlasmaOrdered By: Louie Marrero on 50-23-2793Lanzxov [Moles/Vol]Lactate [Moles/volume] in Serum or Plasma0.5-1.9[facility] CenterComment on above:Lactic Acid reference range has been updated to 0.5 1.9 mmol/L and the critical range of 2.0 or greater.Lactic Acidon 08-20-2024 Lactate [Moles/Vol]0.8 mmol/LNormal0.5-1.9The [facility] Physician GroupComment on above:Result Comment: Lactic Acid reference range has been updated to 0.5 ? 1.9 mmol/L and the critical range of 2.0 or greater. PERFORMED BY: [place] [address] PATHOLOGIST PERSONAL CARE AID HEBER SHANNNO M.D.Performed By: #### UA #### [place] [address] USALeukocyte esterase [Presence] in Urine by Test strip Ordered By: Louie Marrero on 86-33-3188Hnpplvikz esterase Test strip Ql (U) Leukocyte esterase [Presence] in Urine by Test stripNegativeAdams County Regional Medical CenterLeukocytes [#/volume] corrected for nucleated erythrocytes in Blood by Automated counOrdered By: Louie Marrero on 00-59-0391MSK corrected for nucl RBC Auto (Bld) [#/Vol]Leukocytes [#/volume] corrected for nucleated erythrocytes in Blood by Automated coun4.1-10.5FHarrison [facility] Hospital Lymphocytes Auto (Bld) [#/Vol]Ordered By: Louie Marrero on 94-79-9110Xxngukhnbxd (Bld) [#/Vol]Lymphocytes [#/volume] in Blood by Automated countLow1.00-4.8 [facility] CenterLymphocytes/100 WBC Auto (Bld)Ordered By: Louie Marrero on 48-55-7362Okppwfsigmv/100 WBC (Bld)Lymphocytes/100 leukocytes in Blood by Automated count.[facility] CampusH Auto (RBC) [Entitic mass]Ordered By: Louie Marrero on 27-30-1925HVD (RBC) [Entitic mass]MCH [Entitic mass] by Automated count27.5-35.2FHarrison Community HospitalMCHC Auto (RBC) [Mass/Vol]Ordered By: Louie Marrero on 97-81-5908CAKW (RBC) [Mass/Vol]MCHC [Mass/volume] by Automated count32.5-35.6FHarrison Community HospitalMCV Auto (RBC) [Entitic vol]Ordered By: Louie Marrero on 59-74-1625FUM (RBC) [Entitic vol]MCV [Entitic volume] by Automated count83.5-101 [facility] CenterMonocyte distribution width [Entitic volume] in Blood by AutomatedOrdered By: Louie Marrero on 28-71-8886Ohdgmwot distribution width Auto (Bld) [Entitic vol]Monocyte distribution width [Entitic volume] in Blood by AutomatedHigh0.00-20.00[facility] CenterComment on above:For adults in ED, MDW > 20.0 may be associated with a higher risk of sepsis during the first 12 hrs of hospital admissionMonocytes Auto (Bld) [#/Vol] Ordered By: Louie Marrero on 35-46-4662Njqvzgxgf (Bld) [#/Vol]Automated blood monocyte count0.0-0.8[facility] CenterMonocytes/100 WBC Auto (Bld)Ordered By: Louie Marrero on 57-33-1311Xcibfueca/100 WBC (Bld)Automated monocyte %.[facility] CenterNeutrophils Auto (Bld) [#/Vol] Ordered By: Louie Marrero on 76-80-7303Xdvuctrikcm (Bld) [#/Vol]Neutrophils [#/volume] in Blood by Automated count1.8-7.7FHarrison [facility] Hospital Neutrophils/100 WBC Auto (Bld)Ordered By: Louie Marrero on 08-20-2024 Neutrophils/100 WBC (Bld)Automated neutrophil %.[facility] CenterNitrite Test strip Ql (U)Ordered By: Louie Marrero on 84-32-7328Czxywiw Ql (U)Nitrite [Presence] in Urine by Test stripNegGerman HospitalNo Panel InformationOrdered By: Louie Marrero on 40-08-2900Quskulnvh GFR (CKD-EPI)> 60.0 mL/MinAdams County Regional Medical CenterPharmacy Creatinine Clearance (Chem58.71[facility] CenterNucleated erythrocytes [Presence] in Blood by Automated countOrdered By: Louie Marrero on 08-20-2024 Nucleated RBC Auto Ql (Bld)Nucleated erythrocytes [Presence] in Blood by Automated count0-0.5FHarrison Community HospitalPlatelet mean volume Auto (Bld) [Entitic vol]Ordered By: Louie Marrero on 54-69-8133Cmltsexz mean volume (Bld) [Entitic vol]Platelet mean volume [Entitic volume] in Blood by Automated count6.6-10.1FHarrison Community HospitalPlatelets Auto (Bld) [#/Vol] Ordered By: Louie Marrero on 06-05-8778Aunjicuou (Bld) [#/Vol]Platelets [#/volume] in Blood by Automated eihxo534-670OpamwdmchAdams County Regional Medical Center Potassium [Moles/volume] in Serum or PlasmaOrdered By: Louie Marrero on 03-36-5821Jqeohykdg [Moles/Vol]Potassium [Moles/volume] in Serum or Plasma 3.5-5.1FHarrison Community HospitalProtein Test strip (U) [Mass/Vol]Ordered By: Louie Marrero on 24-83-9960Npdierh (U) [Mass/Vol]Protein [Mass/volume] in Urine by Test stripNegativeAdams County Regional Medical CenterProtein [Mass/volume] in Serum or PlasmaOrdered By: Louie Marrero on 22-90-2387Eeqchjz [Mass/Vol]Protein [Mass/volume] in Serum or PlasmaLow6.4-8.9[facility] CenterProthrombin Time INRon 41-29-3431GWE Coag (PPP) [Relative time]1.1 {INR}NormalThe [facility]ly [facility] Physician GroupComment on above:Result Comment: INR Therapeutic [...] heart valves: 3 - 4.5 PERFORMED BY: [place] [address] PATHOLOGIST PERSONAL CARE AID HEBER SHANNON M.D.Performed By: #### ESR #### [facility] [address] [place], [place] [address] USAPT Coag (PPP) [Time]12.9 sNormal9.0-12.9The [facility] Physician 81St Medical GroupComment on above:Result Comment: A hematocrit value greater than 55% may lead to inaccurate results in coagulation testing. Patients having hematocrit values >55% require a special collection tube for coagulation studies. Please contact the laboratory at [phone] for redraw instructions.Performed By: #### ESR #### [facility] [address] [place], [place] [address] USAProthrombin time (PT)Ordered By: Louie Marrero on 55-56-0336LN Coag (PPP) [Time]Prothrombin time (PT)9.0-12.9[facility] CenterComment on above:A hematocrit value greater than 55% may lead to inaccurate results in coagulation testing. Patientshaving hematocrit values >55% require a special collection tube for coagulation studies. Please contact the laboratory at [phone] for redraw instructions.RBC Auto (Bld) [#/Vol]Ordered By: Louie Marrero on 68-57-9143WMY (Bld) [#/Vol]Erythrocytes [#/volume] in Blood by Automated countLow3.90-5.60[facility] CenterRespiratory (Upper) Panel, PCRon 21-00-7970Lsqatmldrsf (Upper) Panel, PCRAdenovirus Not detected Bordetella parapertussis [...] Influenza A H3 Blank Space PERFORMED BY: [place] [address] PATHOLOGIST PERSONAL CARE AID HEBER SHANNON M.D.[facility] Physician GroupComment on above: Performed By: #### MG, SCAN CBC, CMP #### [facility] [address] [place] [address] USARespiratory pathogens DNA and RNA panel - Nasopharynx by MICHELLE with non-probe detectionOrdered By: Louie Marrero on 95-92-1600Nuxosdxrnbh pathogens DNA and RNA panel MICHELLE+non-probe (Nph)Respiratory pathogens DNA and RNA panel - Nasopharynx by MICHELLE with non-probe detectionThe Jewish Hospitalerum or plasma albumin/globulin mass ratioOrdered By: Louie Marrero on 38-55-9361Vrakmjk/Globulin [Mass ratio]Serum or plasma albumin/globulin mass ratioThe Jewish Hospitalerum or plasma anion gap determination Ordered By: Louie Marrero on 32-77-0310Gmthc gap [Moles/Vol]Serum or plasma anion gap determination6.0-15.0The Jewish Hospitalodium [Moles/volume] in Serum or PlasmaOrdered By: Louie Marrero on 85-55-0046Uhdesn [Moles/Vol]Sodium [Moles/volume] in Serum or Wqpknb508-863OzfsnkpxlThe Jewish Hospitalpecific gravity Test strip (U) [Rel density]Ordered By: Louie Marrero on 25-52-1361Ijmxfwko gravity (U) [Rel density]Specific gravity of Urine by Test strip1.001-1.030[facility] CenterTroponin I High Sensitivityon 19-66-7072Indvzocw I High Mqwlgmdyytz73Bemkbr7-95Fqq [facility] Physician GroupComment on above:Result Comment: The Troponin units of report have been changed to meet the Chest Pain Accreditation requirement, element EC5.M1l2. Troponin units are changed from pg/ml to ng/L. Also, the decimal is removed and results are in whole numbers. PERFORMED BY: [place] [address] PATHOLOGIST PERSONAL CARE AID HEBER SHANNON M.D.Performed By: #### MG, SCAN CBC, CMP #### [place] [address] USATroponin I.cardiac [Mass/volume] in Serum or Plasma by Detection limit <= 0.01 ng/Ordered By: Louie Marrero on 66-32-7691Jjuhgyaz I.cardiac DL <= 0.01 ng/mL [Mass/Vol]Troponin I.cardiac [Mass/volume] in Serum or Plasma by Detection limit <= 0.01 ng/0-20[facility] Comment on above:The Troponin units of report have been changed to meet the Chest Pain Accreditation requirement, element EC5.M1l2. Troponin units are changed from pg/ml to ng/L. Also, the decimal is removed and results are in whole numbers.Urea nitrogen [Mass/volume] in Serum or PlasmaOrdered By: Louie Marrero on 04-69-4253Spmm nitrogen [Mass/Vol]Urea nitrogen [Mass/volume] in Serum or Plasma12-08[facility] CenterUrinalysison 08-20-2024 Appearance (U)ClearNormalClearBaptist Medical Center Physician GroupComment on above: Order Comment: Name Collection Type:: Straight CatheterPerformed By: #### MG, SCAN CBC, CMP #### [facility] [address] [place] [id number] USABilirubin,UrineNegativeNormalNegativeBaptist Medical Center Physician GroupComment on above:Order Comment: Name Collection Type:: Straight CatheterPerformed By: #### MG, SCAN CBC, CMP #### [facility] [address] [place] [address] USAColor (U)Light-YellowNormalYellowBaptist Medical Center Physician GroupComment on above:Order Comment: Name Collection Type:: Straight Catheter Performed By: #### MG, SCAN CBC, CMP #### [facility] [address] [place] [address] USAGlucose Ql (U)NormalNormalNormalThBingham Memorial Hospital Physician GroupComment on above:Order Comment: Name Collection Type:: Straight Catheter Performed By: #### MG, SCAN CBC, CMP #### [facility] [address] [place] [address] USAKetones Ql (U)1+HighNegativeBaptist Medical Center Physician Group Comment on above:Order Comment: Name Collection Type:: Straight Catheter Performed By: #### MG, SCAN CBC, CMP #### [facility] [address] [place] [address] USALeukocyte esterase Test strip Ql (U)NegativeNormalNegative [facility] Physician GroupComment on above:Order Comment: Name Collection Type:: Straight CatheterPerformed By: #### MG, SCAN CBC, CMP #### [facility] [address] [place] [address] USANitrite,UrineNegativeNormalNegativeBaptist Medical Center Physician GroupComment on above:Order Comment: Name Collection Type:: Straight Catheter Performed By: #### MG, SCAN CBC, CMP #### [place] [address] USAOccult Blood,UrineNegativeNormalNegativeThe [facility] Physician GroupComment on above:Order Comment: Name Collection Type:: Straight CatheterResult Comment: PERFORMED BY: [place] [address] PATHOLOGIST PERSONAL CARE AID HEBER SHANNON M.D.Performed By: #### MG, SCAN CBC, CMP #### [place] [address] USApH (U)5.5 [pH]Normal5.0-9.0The [facility] Comment on above:Order Comment: Name Collection Type:: Straight Catheter Performed By: #### MG, SCAN CBC, CMP #### [place] [address] USAProtein,UrineNegativeNormalNegativeThe [facility] Physician GroupComment on above:Order Comment: Name Collection Type:: Straight Catheter Performed By: #### MG, SCAN CBC, CMP #### [place] [address] USASpecificy [place],Urine1.044Ymlcgi2.001-1.030The [facility] Physician GroupComment on above:Order Comment: Name Collection Type:: Straight CatheterPerformed By: #### MG, SCAN CBC, CMP #### [place] [address] USAUrobilinogen,UrineNormalNormalNormalThe [facility] Physician GroupComment on above:Order Comment: Name Collection Type:: Straight CatheterPerformed By: #### MG, SCAN CBC, CMP #### [place] [address] USAUrobilinogen Test strip (U) [Mass/Vol]Ordered By: Louie Marrero on 03-23-4647Hlrbridaqvvr (U) [Mass/Vol]Urobilinogen [Mass/volume] in Urine by Test stripNoKettering Health Washington TownshipWBC Auto (Bld) [#/Vol] Ordered By: Louie Marrero on 46-09-7512LIG (Bld) [#/Vol]Leukocytes [#/volume] in Blood by Automated count4.1-10.5FHarrison Community HospitalX-ray report Ordered By: Rah Benavides on 50-83-3300Lcgjv reportFIRLAKE COUNTY [facility] [address] [place] [id number] XRay Report Signed Patient: Jeremie Bennett MR#: [id number] : 1940 Acct:[id number] Age/Sex: 83 / M ADM Date: 5 Loc: ER Room: Type: [facility] ER Attending Dr: Copies to: Louie Marrero DO~ Ordering Provider: Louie Marrero DO Date of Service: 08/20/24 XR/XR chest 1V portable: Fever SINGLE VIEW CHEST CLINICAL HISTORY: Fever, recently finished chemotherapy, cough for 3 weeks COMPARISON: 07/17/2024 FINDINGS: Left-sided pacemaker device. Right-sided Rmmyrs-b-Hnoy. Posterior changes fromprior ACDF. Mildly enlarged cardiac silhouette. Minimal hazy bibasilar opacities similar prior exam. No effusion or pneumothorax. XR/XR chest 1V portable IMPRESSION: MILD BIBASILAR AIRSPACE OPACITIES, THESE APPEAR SIMILAR PRIOR EXAM. Impression dictated by: Rah Benavides M.D.08/20/2024 6:32 PM Dictation Location: [place] [address] Transcribed By: PERLA 08/20/241831 Dictated By: Rah Benavides MD 08/20/241830 Signed By: 08/20/24 183 [facility] Work Phone: XR chest 1V portableon 15-94-8621WY chest 1V portable [facility] Main [address] [address] XRay Report Signed Patient: Jeremie Bennett MR#: [id number] : 1940 Acct:[id number] Age/Sex: 83 / M ADM Date: 08/20/24 Loc: ER Room: Type: [facility] ER Attending Dr: Copies to: Louie Marrero DO Ordering Provider: Louie Marrero DO Date of Service: 08/20/24 XR/XR chest 1V portable: Fever SINGLE VIEW CHEST CLINICAL HISTORY: Fever, recently finished chemotherapy, cough for 3 weeks COMPARISON: 07/17/2024 FINDINGS: Left-sided pacemaker device. Right-sided Lutqtf-b-Zasc. Posterior changes from prior ACDF. Mildly enlarged cardiac silhouette. Minimal hazy bibasilar opacities similar prior exam. No effusion or pneumothorax. XR/XR chest 1V portable IMPRESSION: MILD BIBASILAR AIRSPACE OPACITIES, THESE APPEAR SIMILAR PRIOR EXAM. Impression dictated by: Rah Benavides M.D.08/20/2024 6:32 PM Dictation Location: [place] [address] Transcribed By: [facility] 08/20/241831 Dictated By: Rah Benavides MD 08/20/241830 Signed By: 08/20/241831[facility] Physician GrouppH Test strip (U)Ordered By: Louie Marrero on 50-25-3076zE (U)pH of Urine by Test strip5.0-9.0[facility] CenterAlanine aminotransferase [Enzymatic activity/volume] in Serum or PlasmaOrdered By: Talib Faustin on 03-62-3931UME [Catalytic activity/Vol]Alanine aminotransferase [Enzymatic activity/volume] in Serum or Plasma7-52[facility] CenterAlbumin [Mass/volume] in Serum or Plasma by Bromocresol green (BCG) dye binding methoOrdered By: Talib Faustin on 49-77-9030Xfozida BCG dye [Mass/Vol]Albumin [Mass/volume] in Serum or Plasma by Bromocresol green (BCG) dye binding metho3.5-5.7FHarrison Community HospitalAlkaline phosphatase [Enzymatic activity/volume] in Serum or PlasmaOrdered By: Talib Faustin on 42-57-9703QVY [Catalytic activity/Vol]Alkaline phosphatase [Enzymatic activity/volume] in Serum or Lungzx06-118ZnqnspprnAdams County Regional Medical CenterAspartate aminotransferase [Enzymatic activity/volume] in Serum or Plasma Ordered By: Talib Faustin on 33-28-6700OTL [Catalytic activity/Vol]Aspartate aminotransferase [Enzymatic activity/volume] in Serum or Nvobob21-46GosllorsbAdams County Regional Medical CenterBasophils Auto (Bld) [#/Vol]Ordered By: Talib Faustin on 80-91-9580Iiqxsshfy (Bld) [#/Vol]Automated basophil count0.0-0.2FHarrison Community HospitalBasophils/100 WBC Auto (Bld)Ordered By: rick Faustin on 88-03-3305Ksmrktbeq/100 WBC (Bld)Automated basophil %.[facility] CenterBilirubin.total [Mass/volume] in Serum or PlasmaOrdered By: Talib Faustin on 81-10-7966Owgkocwxb [Mass/Vol]Bilirubin.total [Mass/volume] in Serum or Plasma0.3-1.0[facility] CenterCalcium [Mass/volume] in Serum or PlasmaOrdered By: rick Faustin on 67-90-4632Coseixm [Mass/Vol]Calcium [Mass/volume] in Serum or Plasma8.6-10.3FHarrison Community HospitalCarbon dioxide, total [Moles/volume] in Serum or PlasmaOrdered By: rick Faustin on 35-98-9017OL6 [Moles/Vol]Carbon dioxide, total [Moles/volume] in Serum or Plasma 21.0-31.0[facility] CenterChloride [Moles/volume] in Serum or PlasmaOrdered By: rick Faustin on 61-30-6727Kouksmdv [Moles/Vol]Chloride [Moles/volume] in Serum or Klhjng62-607CvnoyfjvsAdams County Regional Medical CenterComplete Blood Count Auto Diffon 34-01-2126Hrnliaslu (Bld) [#/Vol]0.1 10*3/uLNormal 0.0-0.2The Formerly [facility] Physician GroupComment on above:Result Comment: PERFORMED BY: [place] [address] [place] [address] PATHOLOGIST PERSONAL CARE AID MOHAMED M EL-FAKHARANY M.D.Performed By: #### ESR #### [facility] [address] [place] [address] USABasophils/100 WBC (Bld)1.1 %Normal.The Formerly [facility] Hospital Physician GroupComment on above:Performed By: #### ESR #### [facility] [address] [place] [address] USAEosinophils (Bld) [#/Vol]0.1 10*3/uLNormal0.0-0.45The Formerly [facility] Hospital Physician GroupComment on above:Performed By: #### ESR #### [facility] [address] [place] [address] USAEosinophils/100 WBC (Bld)0.7 %Normal.The Formerly [facility] Hospital Physician GroupComment on above:Performed By: #### ESR #### [place] [address] USAErythrocyte distribution width (RBC) [Ratio]15.2 %High 12.0-14.8The Formerly [facility] Hospital Physician GroupComment on above:Performed By: #### ESR #### [place] [address] USAHematocrit (Bld) [Volume fraction]34.8 %Low38.8-50.0The Formerly [facility] Hospital Physician GroupComment on above:Performed By: #### ESR #### [place] [id number] USAHemoglobin (Bld) [Mass/Vol]11.7 g/dLLow13.0-17.0The Formerly [facility] Hospital Physician GroupComment on above:Performed By: #### ESR #### [facility] [address] [place] [id number] USALymphocytes (Bld) [#/Vol]0.6 10*3/uLLow1.00-4.8The Formerly [facility] Physician GroupComment on above:Performed By: #### ESR #### [facility] [address] [place] [id number] USALymphocytes/100 WBC (Bld)6.4 %Normal.The Formerly [facility] Hospital Physician GroupComment on above:Performed By: #### ESR #### [facility] [address] [place] [address] USAH (RBC) [Entitic mass]30.8 hpYbiprs13.5-35.2The Formerly [facility] Physician GroupComment on above:Performed By: #### ESR #### [facility] [address] [place] [address] USAMCV (RBC) [Entitic vol]91.9 uQSzrkqu29.5-101The Formerly [facility] Physician GroupComment on above:Performed By: #### ESR #### [facility] [address] [place] [address] USAMean Corpuscular HGB Conc33.5 g/hQUekzig01.5-35.6The Formerly [facility] Physician GroupComment on above:Performed By: #### ESR #### [place] [address] USAMonocytes (Bld) [#/Vol]1.1 10*3/uLHigh0.0-0.8The Formerly [facility] Physician GroupComment on above:Performed By: #### ESR #### [place] [address] USAMonocytes/100 WBC (Bld)12.6 %Normal.The Formerly [facility] Hospital Physician GroupComment on above:Performed By: #### ESR #### [place] [address] USANeutrophils (Bld) [#/Vol]7.2 10*3/uLNormal1.8-7.7The Formerly [facility] Physician GroupComment on above:Performed By: #### ESR #### [place] [address] USANeutrophils/100 WBC (Bld)79.2 %Normal.The Formerly [facility] Physician GroupComment on above:Performed By: #### ESR #### [place] [address] USANRBC%0.1 /100{WBC}Normal0-0.5The [facility] Comment on above:Performed By: #### ESR #### [address] [place] [address] USAPlatelet mean volume (Bld) [Entitic vol]7.5 fLNormal 6.6-10.1The Formerly [facility] Physician GroupComment on above:Performed By: #### ESR #### [place] [address] USAPlatelets (Bld) [#/Vol]236 10*3/gYZsgxva805-954Xly Formerly [facility] Physician GroupComment on above:Performed By: #### ESR #### [place] [address] USARBC (Bld) [#/Vol]3.79 10*6/uLLow3.90-5.60The Formerly [facility] Physician GroupComment on above:Performed By: #### ESR #### [place] [address] USAWBC (Bld) [#/Vol]9.1 10*3/uLNormal4.1-10.5The Formerly [facility] Physician GroupComment on above:Performed By: #### ESR #### [place] [address] USAComprehensive Metabolic Panelon 52-81-4802Obtjlfk [Mass/Vol]3.6 g/dLNormal3.5-5.7The Formerly [facility] Physician GroupComment on above: Performed By: #### ESR #### [place] [address] USAAlbumin/Globulin [Mass ratio]1.4 {ratio}NormalThe Formerly [facility] Hospital Physician GroupComment on above:Performed By: #### ESR #### [facility] [address] [place] [address] USAALP [Catalytic activity/Vol]73 U/GEmxldg31-648Ret Formerly [facility] Physician GroupComment on above:Performed By: #### ESR #### [place] [address] USAALT [Catalytic activity/Vol]14 U/LNormal7-52The Formerly [facility] Physician GroupComment on above:Performed By: #### ESR #### [place] [address] USAAnion gap [Moles/Vol]10.5 mmol/LNormal6.0-15.0The Former[facility] Physician GroupComment on above:Performed By: #### ESR #### [place] [address] USAAST [Catalytic activity/Vol]13 U/IGjvnhg55-90Fnm Formerly [facility] Physician GroupComment on above:Performed By: #### ESR #### [place] [address] USABilirubin [Mass/Vol]0.4 mg/dLNormal0.3-1.0The Former[facility] Physician GroupComment on above:Performed By: #### ESR #### [place] [address] USACalcium [Mass/Vol]8.6 mg/dLNormal8.6-10.3The Formerly [facility] Physician GroupComment on above:Performed By: #### ESR #### [place] [address] USAChloride [Moles/Vol]107 mmol/QOgodwb47-885Eyy Formerly [facility] Physician GroupComment on above:Performed By: #### ESR #### [place] [address] USACO2 [Moles/Vol]24.4 mmol/XEaudfi64.0-31.0The Formerly [facility] Physician GroupComment on above:Performed By: #### ESR #### [place] [address] USACreatinine [Mass/Vol]0.83 mg/dLNormal0.70-1.30The Formerly [facility] Physician GroupComment on above:Performed By: #### ESR #### [place] [address] USACreatinine Clr Calc Jnbwoved41.79NormalThe Formerly [facility] Physician GroupComment on above:Result Comment: PERFORMED BY: [place] [address] PATHOLOGIST PERSONAL CARE AID MOHAMED M EL-FAKHARANY M.D.Performed By: #### ESR #### [facility] [address] [place] [address] USAGFR/1.73 sq M.predicted MDRD (S/P/Bld) [Vol rate/Area] mL/min/{1.73_m2}NormalThe Formerly [facility] Physician GroupComment on above:Performed By: #### ESR #### [facility] [address] [place] [address] USAGlobulin (S) [Mass/Vol]2.6 g/dLNormalThe Formerly [facility] Physician GroupComment on above:Performed By: #### ESR #### [place] [address] USAGlucose [Mass/Vol]119 mg/zNBozf34-640Vbz Former[facility] Physician GroupComment on above:Result Comment: Random Glucose Reference Range is dependent on time and content of last meal. Glucose of more than 200 mg/dL in a nonstressed, ambulatory subject supports the diagnosis of Diabetes Mellitus. ADA recommended reference rangePerformed By: #### ESR #### [place] [address] USAPotassium [Moles/Vol]3.9 mmol/LNormal3.5-5.1The Formerly [facility] Physician GroupComment on above:Performed By: #### ESR #### [place] [address] USAProtein [Mass/Vol]6.2 g/dLLow6.4-8.9The Formerly [facility] Physician GroupComment on above:Performed By: #### ESR #### [place] [address] USASodium [Moles/Vol]138 mmol/QJcipvv473-533Fhv Former[facility] Physician GroupComment on above:Performed By: #### ESR #### [place] [address] USAUrea nitrogen [Mass/Vol]19 mg/dLNormal7-25The Formerly [facility] Physician GroupComment on above:Performed By: #### ESR #### [place] [address] USACreatinine [Mass/volume] in Serum or PlasmaOrdered By: rick Faustin on 39-43-2688Tlbrmqqnkr [Mass/Vol]Creatinine [Mass/volume] in Serum or Plasma0.70-1.30[facility] CenterEosinophils Auto (Bld) [#/Vol]Ordered By: rick Faustin on 06-76-4850Ggqqdrmpdto (Bld) [#/Vol] Automated eosinophil count0.0-0.45[facility] Eosinophils/100 WBC Auto (Bld)Ordered By: rick Faustin on 08-16-2024 Eosinophils/100 WBC (Bld)Automated eosinophil %.[facility] CenterErythrocyte distribution width Auto (RBC) [Ratio]Ordered By: Talib Hargrove on 68-73-7720Debhrhmlfwh distribution width (RBC) [Ratio]Erythrocyte distribution width [Ratio] by Automated upbdmPksq32.0-14.8[facility] CenterGlobulin Calc (S) [Mass/Vol]Ordered By: rick Faustin on 42-15-9719Mstljltj (S) [Mass/Vol]Serum globulin measurement by calculation (mass/volume)[facility] CenterGlucose [Mass/volume] in Serum or PlasmaOrdered By: rick Faustin on 75-43-0828Urnunwk [Mass/Vol]Glucose [Mass/volume] in Serum or TrbnuaClrm56-525VimjsrmhgAdams County Regional Medical Center Comment on above:ADA recommended reference rangeRandom Glucose Reference Range is dependent on time and content of last meal. Glucose of more than 200 mg/dL in a nonstressed, ambulatory subject supports the diagnosisof Diabetes Mellitus. Hematocrit Auto (Bld) [Volume fraction]Ordered By: Talib Faustin on 08-16-2024 Hematocrit (Bld) [Volume fraction]Hematocrit [Volume Fraction] of Blood by Automated hyizzIax26.8-50.0[facility] CenterHemoglobin [Mass/volume] in BloodOrdered By: rick Faustin on 35-49-6920Jmlsefybgu (Bld) [Mass/Vol]Hemoglobin [Mass/volume] in FamkbYno81.0-17.0[facility] CenterLeukocytes [#/volume] corrected for nucleated erythrocytes in Blood by Automated counOrdered By: Talib Faustin on 99-18-9652VUN corrected for nucl RBC Auto (Bld) [#/Vol]Leukocytes [#/volume] corrected for nucleated erythrocytes in Blood by Automated coun4.1-10.5FHarrison Community Hospital Lymphocytes Auto (Bld) [#/Vol]Ordered By: Talib Faustin on 08-16-2024 Lymphocytes (Bld) [#/Vol]Lymphocytes [#/volume] in Blood by Automated countLow 1.00-4.8[facility] CenterLymphocytes/100 WBC Auto (Bld)Ordered By: rick Faustin on 76-29-3255Ibrdgtahdhw/100 WBC (Bld)Lymphocytes/100 leukocytes in Blood by Automated count.[facility] CampusH Auto (RBC) [Entitic mass]Ordered By: Talib Faustin on 61-93-8107RVK (RBC) [Entitic mass]MCH [Entitic mass] by Automated count27.5-35.2FHarrison Community HospitalMCHC Auto (RBC) [Mass/Vol]Ordered By: Talib Faustin on 32-84-3964ZIDZ (RBC) [Mass/Vol]MCHC [Mass/volume] by Automated count32.5-35.6FHarrison Community HospitalMCV Auto (RBC) [Entitic vol]Ordered By: Talib Faustin on 48-38-8139SPJ (RBC) [Entitic vol]MCV [Entitic volume] by Automated count83.5-101 [facility] CenterMonocytes Auto (Bld) [#/Vol]Ordered By: rick Hargrove on 87-10-3595Zbqgsdvlz (Bld) [#/Vol]Automated blood monocyte countHigh 0.0-0.8[facility] CenterMonocytes/100 WBC Auto (Bld)Ordered By: Talib Faustin on 95-47-5124Litrmunvd/100 WBC (Bld)Automated monocyte %. [facility] CenterNeutrophils Auto (Bld) [#/Vol]Ordered By: Talib Faustin on 85-46-3740Jnorrnyiknc (Bld) [#/Vol]Neutrophils [#/volume] in Blood by Automated count1.8-7.7FHarrison Community HospitalNeutrophils/100 WBC Auto (Bld)Ordered By: Talib Faustin on 94-60-9672Wzxlelygbyt/100 WBC (Bld) Automated neutrophil %.[facility] CenterNo Panel Information Ordered By: Talib Faustin on 97-29-8837Ydzamzgsq GFR (CKD-EPI)> 60.0 mL/Min [facility] CenterPharmacy Creatinine Clearance (Chem59.79 [facility] CenterNucleated erythrocytes [Presence] in Blood by Automated countOrdered By: Talib Faustin on 51-29-5852Crzmrtyjj RBC Auto Ql (Bld)Nucleated erythrocytes [Presence] in Blood by Automated count0-0.5FHarrison Community HospitalPlatelet mean volume Auto (Bld) [Entitic vol]Ordered By: Talib Faustin on 98-62-8858Ekwukrls mean volume (Bld) [Entitic vol]Platelet mean volume [Entitic volume] in Blood by Automated count6.6-10.1FHarrison Community HospitalPlatelets Auto (Bld) [#/Vol]Ordered By: Talib Faustin on 63-06-0036Sznnkwqwx (Bld) [#/Vol]Platelets [#/volume] in Blood by Automated kybrz114-296MlpwpdmoyAdams County Regional Medical CenterPotassium [Moles/volume] in Serum or PlasmaOrdered By: Talib Faustin on 98-71-8105Nrlmtnddr [Moles/Vol]Potassium [Moles/volume] in Serum or Plasma3.5-5.1FHarrison Community HospitalProtein [Mass/volume] in Serum or PlasmaOrdered By: Talib Faustin on 01-35-6834Nzgixct [Mass/Vol]Protein [Mass/volume] in Serum or PlasmaLow6.4-8.9[facility] CenterRBC Auto (Bld) [#/Vol]Ordered By: Talib Faustin on 12-51-4326VGO (Bld) [#/Vol]Erythrocytes [#/volume] in Blood by Automated countLow3.90-5.60 [facility] Jewish Hospitalerum or plasma albumin/globulin mass ratio Ordered By: Talib Faustin on 54-44-8635Dfnrpzi/Globulin [Mass ratio]Serum or plasma albumin/globulin mass ratioThe Jewish Hospitalerum or plasma anion gap determinationOrdered By: rick Faustin on 95-86-5009Bfoyg gap [Moles/Vol]Serum or plasma anion gap determination6.0-15.0The Jewish Hospitalodium [Moles/volume] in Serum or PlasmaOrdered By: rick Faustin on 68-89-2962Zooszf [Moles/Vol]Sodium [Moles/volume] in Serum or Pewiia806-627 [facility] CenterUrea nitrogen [Mass/volume] in Serum or Plasma Ordered By: rick Faustin on 96-66-0535Obum nitrogen [Mass/Vol]Urea nitrogen [Mass/volume] in Serum or Plasma7-25[facility] CenterWBC Auto (Bld) [#/Vol]Ordered By: Talib Faustin on 95-64-7684TJS (Bld) [#/Vol]Leukocytes [#/volume] in Blood by Automated count4.1-10.5FHarrison [facility] Hospital Complete Blood Count Auto Diffon 44-89-5024Mtenkdpuy (Bld) [#/Vol]0.0 10*3/uL Normal0.0-0.2The [facility] Physician GroupComment on above:Result Comment: PERFORMED BY: [place] [address] PATHOLOGIST PERSONAL CARE AID HEBER SHANNON M.D.Performed By: #### CMP, CBC #### [facility] [address] [place] [address] USABasophils/100 WBC (Bld)0.4 %Normal.The Former[facility] Physician GroupComment on above:Performed By: #### CMP, CBC #### [facility] [address] [place] [address] USAEosinophils (Bld) [#/Vol]0.0 10*3/uLNormal0.0-0.45The Formerly [facility] Physician GroupComment on above:Performed By: #### CMP, CBC #### [place] [address] USAEosinophils/100 WBC (Bld)0.5 %Normal.The Former[facility] Physician GroupComment on above:Performed By: #### CMP, CBC #### [place] [address] USAErythrocyte distribution width (RBC) [Ratio]14.7 %Normal 12.0-14.8The Formerly [facility] Physician GroupComment on above:Performed By: #### CMP, CBC #### [place] [address] USAHematocrit (Bld) [Volume fraction]36.9 %Low38.8-50.0The Formerly [facility] Physician GroupComment on above:Performed By: #### CMP, CBC #### [place] [address] USAHemoglobin (Bld) [Mass/Vol]12.4 g/dLLow13.0-17.0The Former[facility] Physician GroupComment on above:Performed By: #### CMP, CBC #### [place] [address] USALymphocytes (Bld) [#/Vol]0.6 10*3/uLLow1.00-4.8The Formerly [facility] Physician GroupComment on above:Performed By: #### CMP, CBC #### [place] [address] USALymphocytes/100 WBC (Bld)7.4 %Normal.The Former[facility] Physician GroupComment on above:Performed By: #### CMP, CBC #### [place] [address] USAMCH (RBC) [Entitic mass]30.9 qgBaigcr60.5-35.2The Formerly [facility] Physician GroupComment on above:Performed By: #### CMP, CBC #### [place] [address] USAMCV (RBC) [Entitic vol]92.2 zLEwgtea98.5-101The Former[facility] Physician GroupComment on above:Performed By: #### CMP, CBC #### [facility] [address] [place] [address] USAMean Corpuscular HGB Conc33.6 g/bIEupmon03.5-35.6The Former[facility] Physician GroupComment on above:Performed By: #### CMP, CBC #### [place] [address] USAMonocytes (Bld) [#/Vol]0.8 10*3/uLNormal0.0-0.8The Former[facility] Physician GroupComment on above:Performed By: #### CMP, CBC #### [place] [address] USAMonocytes/100 WBC (Bld)8.9 %Normal.The [facility] Physician GroupComment on above:Performed By: #### CMP, CBC #### [place] [address] USANeutrophils (Bld) [#/Vol]7.2 10*3/uLNormal1.8-7.7The Formerly [facility] Physician GroupComment on above:Performed By: #### CMP, CBC #### [place] [address] USANeutrophils/100 WBC (Bld)82.8 %Normal.The Former[facility] Physician GroupComment on above:Performed By: #### CMP, CBC #### [place] [address] USANRBC%0.1 /100{WBC}Normal0-0.5The [facility] Comment on above:Performed By: #### CMP, CBC #### [place] [address] USAPlatelet mean volume (Bld) [Entitic vol]7.9 fLNormal 6.6-10.1The Formerly [facility] Physician GroupComment on above:Performed By: #### CMP, CBC #### [place] [address] USAPlatelets (Bld) [#/Vol]245 10*3/fYCfossx696-848Log [facility] Physician GroupComment on above:Performed By: #### CMP, CBC #### [place] [address] USARBC (Bld) [#/Vol]4.00 10*6/uLNormal3.90-5.60The Formerly [facility] Physician GroupComment on above:Performed By: #### CMP, CBC #### [place] [address] USAWBC (Bld) [#/Vol]8.7 10*3/uLNormal4.1-10.5The Formerly [facility] Physician GroupComment on above:Performed By: #### CMP, CBC #### [place] [address] USAComprehensive Metabolic Panelon 83-35-5571Ztholab [Mass/Vol]3.7 g/dLNormal3.5-5.7The Former[facility] Physician GroupComment on above: Performed By: #### CMP, CBC #### [place] [address] USAAlbumin/Globulin [Mass ratio]1.2 {ratio}NormalThe Formerly [facility] Physician GroupComment on above:Performed By: #### CMP, CBC #### [place] [address] USAALP [Catalytic activity/Vol]69 U/DUobopf65-888Owg [facility] Physician GroupComment on above:Performed By: #### CMP, CBC #### [place] [address] USAALT [Catalytic activity/Vol]18 U/LNormal7-52The Former[facility] Physician GroupComment on above:Performed By: #### CMP, CBC #### [place] [address] USAAnion gap [Moles/Vol]10.4 mmol/LNormal6.0-15.0The Former[facility] Physician GroupComment on above:Performed By: #### CMP, CBC #### [place] [address] USAAST [Catalytic activity/Vol]18 U/FDpuxiu82-83Kgu Former[facility] Physician GroupComment on above:Performed By: #### CMP, CBC #### [place] [address] USABilirubin [Mass/Vol]0.4 mg/dLNormal0.3-1.0The Former[facility] Physician GroupComment on above:Performed By: #### CMP, CBC #### [place] [address] USACalcium [Mass/Vol]9.4 mg/dLNormal8.6-10.3The Formerly [facility] Physician GroupComment on above:Performed By: #### CMP, CBC #### [place] [address] USAChloride [Moles/Vol]102 mmol/ELteytx55-473Uqx [facility] Physician GroupComment on above:Performed By: #### CMP, CBC #### [place] [address] USACO2 [Moles/Vol]26.5 mmol/UYpggyd43.0-31.0The Former[facility] Physician GroupComment on above:Performed By: #### CMP, CBC #### [place] [address] USACreatinine [Mass/Vol]0.91 mg/dLNormal0.70-1.30The Formerly [facility] Physician GroupComment on above:Performed By: #### CMP, CBC #### [place] [address] USACreatinine Clr Calc Lhyhgtmv40.53NormalThe Formerly [facility] Physician GroupComment on above:Result Comment: PERFORMED BY: [place] [address] PATHOLOGIST PERSONAL CARE AID HEBER SHANNON M.D.Performed By: #### CMP, CBC #### [place] [address] USAGFR/1.73 sq M.predicted MDRD (S/P/Bld) [Vol rate/Area] mL/min/{1.73_m2}NormalThe Formerly [facility] Physician GroupComment on above:Performed By: #### CMP, CBC #### [facility] [address] [place] [address] USAGlobulin (S) [Mass/Vol]3.0 g/dLNormalThe Formerly [facility] Physician GroupComment on above:Performed By: #### CMP, CBC #### [facility] [address] [place] [address] USAGlucose [Mass/Vol]163 mg/zBAefm17-388Tnd Formerly [facility] Physician GroupComment on above:Result Comment: Random Glucose Reference Range is dependent on time and content of last meal. Glucose of more than 200 mg/dL in a nonstressed, ambulatory subject supports the diagnosis of Diabetes Mellitus. ADA recommended reference rangePerformed By: #### CMP, CBC #### [place] [address] USAPotassium [Moles/Vol]3.9 mmol/LNormal3.5-5.1The Former[facility] Physician GroupComment on above:Performed By: #### CMP, CBC #### [place] [address] USAProtein [Mass/Vol]6.7 g/dLNormal6.4-8.9The Former[facility] Physician GroupComment on above:Performed By: #### CMP, CBC #### [place] [address] USASodium [Moles/Vol]135 mmol/WBdx648-956Vtp Formerly [facility] Physician GroupComment on above:Performed By: #### CMP, CBC #### [place] [address] USAUrea nitrogen [Mass/Vol]31 mg/dLHigh7-25The Formerly [facility] Physician GroupComment on above:Performed By: #### CMP, CBC #### [place] [address] USAComplete Blood Count Auto Diffon 72-53-3930Fisrybhww (Bld) [#/Vol]0.1 10*3/uLNormal0.0-0.2The Formerly [facility] Physician GroupComment on above: Result Comment: PERFORMED BY: [place] [address] PATHOLOGIST PERSONAL CARE AID HEBER SHANNON M.D.Performed By: #### MG, SCAN CBC, CMP #### [place] [address] USABasophils/100 WBC (Bld)1.0 %Normal.The Formerly [facility] Physician GroupComment on above:Performed By: #### MG, SCAN CBC, CMP #### [place] [address] USAEosinophils (Bld) [#/Vol]0.0 10*3/uLNormal0.0-0.45The Formerly [facility] Physician GroupComment on above:Performed By: #### MG, SCAN CBC, CMP #### [place] [address] USAEosinophils/100 WBC (Bld)0.6 %Normal.The Formerly [facility] Physician GroupComment on above:Performed By: #### MG, SCAN CBC, CMP #### [place] [address] USAErythrocyte distribution width (RBC) [Ratio]14.0 %Normal 12.0-14.8The Formerly [facility] Physician GroupComment on above:Performed By: #### MG, SCAN CBC, CMP #### [place] [address] USAHematocrit (Bld) [Volume fraction]35.5 %Low38.8-50.0The Formerly [facility] Physician GroupComment on above:Performed By: #### MG, SCAN CBC, CMP #### [place] [address] USAHemoglobin (Bld) [Mass/Vol]12.1 g/dLLow13.0-17.0The Formerly [facility] Physician GroupComment on above:Performed By: #### MG, SCAN CBC, CMP #### [place] [address] USALymphocytes (Bld) [#/Vol]0.6 10*3/uLLow1.00-4.8The Formerly [facility] Physician GroupComment on above:Performed By: #### MG, SCAN CBC, CMP #### [place] [address] USALymphocytes/100 WBC (Bld)10.3 %Normal.The Formerly [facility] Physician GroupComment on above:Performed By: #### MG, SCAN CBC, CMP #### [address] (RBC) [Entitic mass]31.4 kdBqtxai51.5-35.2The Formerly [facility] Physician GroupComment on above:Performed By: #### MG, SCAN CBC, CMP #### [address] (RBC) [Entitic vol]92.2 wZHbinyy65.5-101The Formerly [facility] Physician GroupComment on above:Performed By: #### MG, SCAN CBC, CMP #### [place] [address] USAMean Corpuscular HGB Conc34.0 g/dQFxjfcv44.5-35.6The Formerly [facility] Physician GroupComment on above:Performed By: #### MG, SCAN CBC, CMP #### [place] [address] USAMonocytes (Bld) [#/Vol]0.9 10*3/uLHigh0.0-0.8The Formerly [facility] Physician GroupComment on above:Performed By: #### MG, SCAN CBC, CMP #### [place] [address] USAMonocytes/100 WBC (Bld)14.8 %Normal.The Formerly [facility] Physician GroupComment on above:Performed By: #### MG, SCAN CBC, CMP #### [place] [address] USANeutrophils (Bld) [#/Vol]4.5 10*3/uLNormal1.8-7.7The Formerly [facility] Physician GroupComment on above:Performed By: #### MG, SCAN CBC, CMP #### [place] [address] USANeutrophils/100 WBC (Bld)73.3 %Normal.The Formerly [facility] Physician GroupComment on above:Performed By: #### MG, SCAN CBC, CMP #### [facility] [address] [place] [address] USANRBC%0.1 /100{WBC}Normal0-0.5The [facility] Comment on above:Performed By: #### MG, SCAN CBC, CMP #### [facility] [address] [place] [address] USAPlatelet mean volume (Bld) [Entitic vol]7.4 fLNormal 6.6-10.1The Formerly [facility] Physician GroupComment on above:Performed By: #### MG, SCAN CBC, CMP #### [place] [address] USAPlatelets (Bld) [#/Vol]215 10*3/eEIkwejj205-952Euc Formerly [facility] Physician GroupComment on above:Performed By: #### MG, SCAN CBC, CMP #### [place] [address] USARBC (Bld) [#/Vol]3.85 10*6/uLLow3.90-5.60The Formerly [facility] Physician GroupComment on above:Performed By: #### MG, SCAN CBC, CMP #### [place] [address] USAWBC (Bld) [#/Vol]6.2 10*3/uLNormal4.1-10.5The Formerly [facility] Physician GroupComment on above:Performed By: #### MG, SCAN CBC, CMP #### [place] [address] USAComprehensive Metabolic Panelon 66-54-7532Lggztoj [Mass/Vol]3.6 g/dLNormal3.5-5.7The Formerly [facility] Physician GroupComment on above: Performed By: #### MG, SCAN CBC, CMP #### [facility] [address] [place] [address] USAAlbumin/Globulin [Mass ratio]1.3 {ratio}NormalThe Formerly [facility] Physician GroupComment on above:Performed By: #### MG, SCAN CBC, CMP #### [facility] [address] [place] [address] USAALP [Catalytic activity/Vol]75 U/UHvonfw00-124Wry Formerly [facility] Physician GroupComment on above:Performed By: #### MG, SCAN CBC, CMP #### [facility] [address] [place] [address] USAALT [Catalytic activity/Vol]12 U/LNormal7-52The Formerly [facility] Physician GroupComment on above:Performed By: #### MG, SCAN CBC, CMP #### [facility] [address] [place] [address] USAAnion gap [Moles/Vol]10.1 mmol/LNormal6.0-15.0The Formerly [facility] Physician GroupComment on above:Performed By: #### MG, SCAN CBC, CMP #### [facility] [address] [place] [address] USAAST [Catalytic activity/Vol]13 U/HJljqkv59-46Gnj Formerly [facility] Physician GroupComment on above:Performed By: #### MG, SCAN CBC, CMP #### [facility] [address] [place] [address] USABilirubin [Mass/Vol]0.5 mg/dLNormal0.3-1.0The Formerly [facility] Physician GroupComment on above:Performed By: #### MG, SCAN CBC, CMP #### [facility] [address] [place] [address] USACalcium [Mass/Vol]8.5 mg/dLLow8.6-10.3The Formerly [facility] Physician GroupComment on above:Performed By: #### MG, SCAN CBC, CMP #### [facility] [address] [place] [address] USAChloride [Moles/Vol]103 mmol/KXgvxnr49-043Smc Formerly [facility] Physician GroupComment on above:Performed By: #### MG, SCAN CBC, CMP #### [facility] [address] [place] [address] USACO2 [Moles/Vol]27.1 mmol/LDakefu81.0-31.0The Formerly [facility] Physician GroupComment on above:Performed By: #### MG, SCAN CBC, CMP #### [facility] [address] [place] [address] USACreatinine [Mass/Vol]1.03 mg/dLNormal0.70-1.30The Formerly [facility] Physician GroupComment on above:Performed By: #### MG, SCAN CBC, CMP #### [place] [address] USACreatinine Clr Calc Zwpxvzoq47.18NormJackson Memorial Hospital Physician GroupComment on above:Result Comment: PERFORMED BY: [place] [address] PATHOLOGIST PERSONAL CARE AID HEBER SHANNON M.D.Performed By: #### MG, SCAN CBC, CMP #### [place] [address] USAGFR/1.73 sq M.predicted MDRD (S/P/Bld) [Vol rate/Area] mL/min/{1.73_m2}NormalThe [facility]ly [facility] Physician 81St Medical GroupComment on above:Performed By: #### MG, SCAN CBC, CMP #### [place] [address] USAGlobulin (S) [Mass/Vol]2.7 g/dLAdventHealth Daytona Beach Physician 81St Medical GroupComment on above:Performed By: #### MG, SCAN CBC, CMP #### [place] [address] USAGlucose [Mass/Vol]120 mg/hBMwra52-291Muo Formerly [facility] Physician GroupComment on above:Result Comment: Random Glucose Reference Range is dependent on time and content of last meal. Glucose of more than 200 mg/dL in a nonstressed, ambulatory subject supports the diagnosis of Diabetes Mellitus. ADA recommended reference rangePerformed By: #### MG, SCAN CBC, CMP #### [place] [address] USAPotassium [Moles/Vol]4.2 mmol/LNormal3.5-5.1The Formerly [facility] Physician GroupComment on above:Performed By: #### MG, SCAN CBC, CMP #### [facility] [address] [place] [address] USAProtein [Mass/Vol]6.3 g/dLLow6.4-8.9The Formerly [facility] Physician GroupComment on above:Performed By: #### MG, SCAN CBC, CMP #### [facility] [address] [place] [address] USASodium [Moles/Vol]136 mmol/LQlztsp180-369Kkr Formerly [facility] Physician GroupComment on above:Performed By: #### MG, SCAN CBC, CMP #### [facility] [address] [place] [address] USAUrea nitrogen [Mass/Vol]35 mg/dLHigh7-25The Formerly [facility] Physician GroupComment on above:Performed By: #### MG, SCAN CBC, CMP #### [facility] [address] [place] [address] USAAlanine aminotransferase [Enzymatic activity/volume] in Serum or PlasmaOrdered By: Talib Faustin on 00-10-7883MRA [Catalytic activity/Vol]Alanine aminotransferase [Enzymatic activity/volume] in Serum or Plasma7[facility] Medical CenterAlbumin [Mass/volume] in Serum or Plasma by Bromocresol green (BCG) dye binding methoOrdered By: Talib Faustin on 76-68-6439Iqmiqna BCG dye [Mass/Vol]Albumin [Mass/volume] in Serum or Plasma by Bromocresol green (BCG) dye binding metho3.5-5.7FHarrison Community HospitalAlkaline phosphatase [Enzymatic activity/volume] in Serum or PlasmaOrdered By: Talib Faustin on 00-27-7274OMK [Catalytic activity/Vol]Alkaline phosphatase [Enzymatic activity/volume] in Serum or Cxslyy80-542ZhlrcdgxnAdams County Regional Medical CenterAspartate aminotransferase [Enzymatic activity/volume] in Serum or Plasma Ordered By: Talib Faustin on 18-80-4976XMJ [Catalytic activity/Vol]Aspartate aminotransferase [Enzymatic activity/volume] in Serum or Ttswxc50-44VfmjwfvnbAdams County Regional Medical CenterBasophils Auto (Bld) [#/Vol]Ordered By: rick Faustin on 30-76-3665Efyrrzhir (Bld) [#/Vol]Automated basophil count0.0-0.2FHarrison Community HospitalBasophils/100 WBC Auto (Bld)Ordered By: [facility] Ramin on 51-78-6482Emuvioltx/100 WBC (Bld)Automated basophil %.[facility] CenterBilirubin.total [Mass/volume] in Serum or PlasmaOrdered By: [facility] Ramin on 82-51-6349Tcwoakvmd [Mass/Vol]Bilirubin.total [Mass/volume] in Serum or Plasma0.3-1.0[facility] CenterCalcium [Mass/volume] in Serum or PlasmaOrdered By: [facility] Ramin on 38-42-3259Mhyeycl [Mass/Vol]Calcium [Mass/volume] in Serum or Plasma8.6-10.3FHarrison Community HospitalCarbon dioxide, total [Moles/volume] in Serum or PlasmaOrdered By: [facility] Ramin on 33-06-7841HG4 [Moles/Vol]Carbon dioxide, total [Moles/volume] in Serum or Plasma 21.0-31.0[facility] Medical CenterChloride [Moles/volume] in Serum or PlasmaOrdered By: [facility] Community HospitalConi on 92-90-7295Bxtozaie [Moles/Vol]Chloride [Moles/volume] in Serum or Bewtnk14-943WargiluurAdams County Regional Medical CenterComplete Blood Count Auto Diffon 92-40-8909Hetzvboqf (Bld) [#/Vol]0.1 10*3/uLNormal 0.0-0.2The Formerly [facility] Physician GroupComment on above:Result Comment: PERFORMED BY: [facility] [address] [place] [address] PATHOLOGIST PERSONAL CARE AID HEBER SHANNON M.D.Performed By: #### ESR #### [place] [address] USABasophils/100 WBC (Bld)1.0 %Normal.The Formerly [facility] Physician GroupComment on above:Performed By: #### ESR #### [facility] [address] [place] [address] USAEosinophils (Bld) [#/Vol]0.1 10*3/uLNormal0.0-0.45The Formerly [facility] Physician GroupComment on above:Performed By: #### ESR #### [facility] [address] [place] [address] USAEosinophils/100 WBC (Bld)1.4 %Normal.The Formerly [facility] Physician GroupComment on above:Performed By: #### ESR #### [facility] [address] [place] [address] USAErythrocyte distribution width (RBC) [Ratio]13.6 %Normal 12.0-14.8The Formerly [facility] Physician GroupComment on above:Performed By: #### ESR #### [facility] [address] [place] [address] USAHematocrit (Bld) [Volume fraction]35.4 %Low38.8-50.0The Formerly [facility] Physician GroupComment on above:Performed By: #### ESR #### [place] [address] USAHemoglobin (Bld) [Mass/Vol]12.0 g/dLLow13.0-17.0The Formerly [facility] Physician GroupComment on above:Performed By: #### ESR #### [facility] [address] [place] [address] USALymphocytes (Bld) [#/Vol]0.9 10*3/uLLow1.00-4.8The Formerly [facility] Physician GroupComment on above:Performed By: #### ESR #### [facility] [address] [place] [address] USALymphocytes/100 WBC (Bld)13.0 %Normal.The Formerly [facility] Physician GroupComment on above:Performed By: #### ESR #### [facility] [address] [place] [address] USAMCH (RBC) [Entitic mass]31.1 nsNjaxiq73.5-35.2The Formerly [facility] Physician GroupComment on above:Performed By: #### ESR #### [facility] [address] [place] [address] USAMCV (RBC) [Entitic vol]91.5 sZSztyac21.5-101The Formerly [facility] Physician GroupComment on above:Performed By: #### ESR #### [place] [address] USAMean Corpuscular HGB Conc34.0 g/aJYtgkwt07.5-35.6The Formerly [facility] Physician GroupComment on above:Performed By: #### ESR #### [place] [address] USAMonocytes (Bld) [#/Vol]0.7 10*3/uLNormal0.0-0.8The Formerly [facility] Physician GroupComment on above:Performed By: #### ESR #### [place] [address] USAMonocytes/100 WBC (Bld)9.8 %Normal.The Formerly [facility] Physician GroupComment on above:Performed By: #### ESR #### [place] [address] USANeutrophils (Bld) [#/Vol]5.1 10*3/uLNormal1.8-7.7The Formerly [facility] Physician GroupComment on above:Performed By: #### ESR #### [place] [address] USANeutrophils/100 WBC (Bld)74.8 %Normal.The Formerly [facility] Physician GroupComment on above:Performed By: #### ESR #### [place] [address] USANRBC%0.1 /100{WBC}Normal0-0.5The [facility]ly [facility] Comment on above:Performed By: #### ESR #### [place] [address] USAPlatelet mean volume (Bld) [Entitic vol]7.4 fLNormal 6.6-10.1The Formerly [facility] Physician GroupComment on above:Performed By: #### ESR #### [place] [address] USAPlatelets (Bld) [#/Vol]217 10*3/aTLdwrof974-826Fkn Formerly [facility] Physician GroupComment on above:Performed By: #### ESR #### [place] [address] USARBC (Bld) [#/Vol]3.87 10*6/uLLow3.90-5.60The Formerly [facility] Physician GroupComment on above:Performed By: #### ESR #### [place] [address] USAWBC (Bld) [#/Vol]6.9 10*3/uLNormal4.1-10.5The Formerly [facility] Physician GroupComment on above:Performed By: #### ESR #### [place] [address] USAComprehensive Metabolic Panelon 45-77-2906Cedqjte [Mass/Vol]3.7 g/dLNormal3.5-5.7The Formerly [facility] Physician GroupComment on above: Performed By: #### ESR #### [place] [address] USAAlbumin/Globulin [Mass ratio]1.3 {ratio}NormalThe Formerly [facility] Physician GroupComment on above:Performed By: #### ESR #### [place] [address] USAALP [Catalytic activity/Vol]80 U/VJiwuys68-525Bju Formerly [facility] Physician GroupComment on above:Performed By: #### ESR #### [place] [address] USAALT [Catalytic activity/Vol]13 U/LNormal7-52The Formerly [facility] Physician GroupComment on above:Performed By: #### ESR #### [place] [address] USAAnion gap [Moles/Vol]9.4 mmol/LNormal6.0-15.0The Formerly [facility] Physician GroupComment on above:Performed By: #### ESR #### [facility] [address] [place] [address] USAAST [Catalytic activity/Vol]14 U/KYcgswg72-25Nhw Formerly [facility] Physician GroupComment on above:Performed By: #### ESR #### [facility] [address] [place] [address] USABilirubin [Mass/Vol]0.5 mg/dLNormal0.3-1.0The Formerly [facility] Physician GroupComment on above:Performed By: #### ESR #### [facility] [address] [place] [address] USACalcium [Mass/Vol]8.9 mg/dLNormal8.6-10.3The Formerly [facility] Physician GroupComment on above:Performed By: #### ESR #### [place] [address] USAChloride [Moles/Vol]104 mmol/IEsyoqd17-291Ymw Formerly [facility] Physician GroupComment on above:Performed By: #### ESR #### [place] [address] USACO2 [Moles/Vol]26.8 mmol/SRsxtuq08.0-31.0The Formerly [facility] Physician GroupComment on above:Performed By: #### ESR #### [place] [address] USACreatinine [Mass/Vol]0.87 mg/dLNormal0.70-1.30The Formerly [facility] Physician GroupComment on above:Performed By: #### ESR #### [place] [address] USACreatinine Clr Calc Csqhjfnp35.04NormalThe Formerly [facility] Physician GroupComment on above:Result Comment: PERFORMED BY: [place] [address] PATHOLOGIST PERSONAL CARE AID HEBER SHANNON M.D.Performed By: #### ESR #### [place] [address] USAGFR/1.73 sq M.predicted MDRD (S/P/Bld) [Vol rate/Area] mL/min/{1.73_m2}NormalThe Formerly [facility] Physician GroupComment on above:Performed By: #### ESR #### [facility] [address] [place] [address] USAGlobulin (S) [Mass/Vol]2.9 g/dLNormalThe Formerly [facility] Physician GroupComment on above:Performed By: #### ESR #### [facility] [address] [place] [address] USAGlucose [Mass/Vol]107 mg/oIIzwb51-138Qmg Formerly [facility] Physician GroupComment on above:Result Comment: Random Glucose Reference Range is dependent on time and content of last meal. Glucose of more than 200 mg/dL in a nonstressed, ambulatory subject supports the diagnosis of Diabetes Mellitus. ADA recommended reference rangePerformed By: #### ESR #### [place] [address] USAPotassium [Moles/Vol]4.2 mmol/LNormal3.5-5.1The Formerly [facility] Physician GroupComment on above:Performed By: #### ESR #### [place] [address] USAProtein [Mass/Vol]6.6 g/dLNormal6.4-8.9The Formerly [facility] Physician GroupComment on above:Performed By: #### ESR #### [place] [address] USASodium [Moles/Vol]136 mmol/GIfmsxq477-778Gcv Formerly [facility] Physician GroupComment on above:Performed By: #### ESR #### [facility] [address] [place] [address] USAUrea nitrogen [Mass/Vol]30 mg/dLHigh7-25The Formerly [facility] Physician GroupComment on above:Performed By: #### ESR #### [place] [address] USACreatinine [Mass/volume] in Serum or PlasmaOrdered By: Talib Faustin on 54-94-1469Fjgtbsyqzk [Mass/Vol]Creatinine [Mass/volume] in Serum or Plasma0.70-1.30[facility] CenterEosinophils Auto (Bld) [#/Vol]Ordered By: Talib Faustin on 60-44-6674Ovyxvbwfrkd (Bld) [#/Vol] Automated eosinophil count0.0-0.45[facility] Eosinophils/100 WBC Auto (Bld)Ordered By: Talib Faustin on 07-26-2024 Eosinophils/100 WBC (Bld)Automated eosinophil %.[facility] Medical CenterErythrocyte distribution width Auto (RBC) [Ratio]Ordered By: Talib Hargrove on 96-93-1974Obnxghsbdyv distribution width (RBC) [Ratio]Erythrocyte distribution width [Ratio] by Automated count12.0-14.8[facility] Medical CenterGlobulin Calc (S) [Mass/Vol]Ordered By: Talib Faustin on 07-26-2024 Globulin (S) [Mass/Vol]Serum globulin measurement by calculation (mass/volume) [facility] CenterGlucose [Mass/volume] in Serum or PlasmaOrdered By: Talib Faustin on 09-06-5266Bwghtjg [Mass/Vol]Glucose [Mass/volume] in Serum or PhinxxZatk92-934SvjmruccaAdams County Regional Medical CenterComment on above:ADA recommended reference rangeRandom Glucose Reference Range is dependent on time and content of last meal. Glucose of more than 200 mg/dL in a nonstressed, ambulatory subject supports the diagnosisof Diabetes Mellitus.Hematocrit Auto (Bld) [Volume fraction]Ordered By: Talib Faustin on 97-08-3492Gppvqpbaze (Bld) [Volume fraction]Hematocrit [Volume Fraction] of Blood by Automated countLow 38.8-50.0[facility] CenterHemoglobin [Mass/volume] in Blood Ordered By: Talib Faustin on 75-69-5722Bbisnlxlpp (Bld) [Mass/Vol]Hemoglobin [Mass/volume] in CdrseWnc96.0-17.0[facility] CenterLeukocytes [#/volume] corrected for nucleated erythrocytes in Blood by Automated coun Ordered By: Talib Faustin on 47-50-2443WKG corrected for nucl RBC Auto (Bld) [#/Vol]Leukocytes [#/volume] corrected for nucleated erythrocytes in Blood by Automated coun4.1-10.5FHarrison Community HospitalLymphocytes Auto (Bld) [#/Vol]Ordered By: Talib Faustin on 52-25-5459Crwevjqtohx (Bld) [#/Vol] Lymphocytes [#/volume] in Blood by Automated countLow1.00-4.8[facility] CenterLymphocytes/100 WBC Auto (Bld)Ordered By: Talib Faustin on 19-57-6026Mrtnafiwqcz/100 WBC (Bld)Lymphocytes/100 leukocytes in Blood by Automated count.[facility] CenterMCH Auto (RBC) [Entitic mass] Ordered By: Talib Faustin on 48-06-1584XPR (RBC) [Entitic mass]MCH [Entitic mass] by Automated count27.5-35.2FHarrison Community HospitalMCHC Auto (RBC) [Mass/Vol]Ordered By: Talib Faustin on 94-22-1183WRJQ (RBC) [Mass/Vol] MCHC [Mass/volume] by Automated count32.5-35.6FHarrison [facility] Hospital MCV Auto (RBC) [Entitic vol]Ordered By: Talib Faustin on 14-44-9027ATE (RBC) [Entitic vol]MCV [Entitic volume] by Automated count83.5-101[facility] CenterMonocytes Auto (Bld) [#/Vol]Ordered By: Talib Faustin on 47-00-9284Nirlpavyc (Bld) [#/Vol]Automated blood monocyte count0.0-0.8[facility] CenterMonocytes/100 WBC Auto (Bld)Ordered By: Talib Faustin on 43-63-3003Ovrycygul/100 WBC (Bld)Automated monocyte %.[facility] CenterNeutrophils Auto (Bld) [#/Vol]Ordered By: Talib Faustin on 47-20-5011Akdmsyqfcwc (Bld) [#/Vol]Neutrophils [#/volume] in Blood by Automated count1.8-7.7FHarrison Community HospitalNeutrophils/100 WBC Auto (Bld) Ordered By: Talib Faustin on 37-82-6138Ippgvgvfdzd/100 WBC (Bld)Automated neutrophil %.[facility] CenterNo Panel InformationOrdered By: Talib Faustin on 53-05-0739Eesfhrsnu GFR (CKD-EPI)> 60.0 mL/MinAdams County Regional Medical CenterPharmacy Creatinine Clearance (Chem57.04[facility] CenterNucleated erythrocytes [Presence] in Blood by Automated countOrdered By: Talib Faustin on 50-78-9489Svokhqark RBC Auto Ql (Bld) Nucleated erythrocytes [Presence] in Blood by Automated count0-0.5FHarrison Community HospitalPlatelet mean volume Auto (Bld) [Entitic vol]Ordered By: Talib Faustin on 05-16-7242Vdsuuchd mean volume (Bld) [Entitic vol]Platelet mean volume [Entitic volume] in Blood by Automated count6.6-10.1FHarrison Community HospitalPlatelets Auto (Bld) [#/Vol]Ordered By: Talib Faustin on 24-20-9522Yzwizgsxy (Bld) [#/Vol]Platelets [#/volume] in Blood by Automated hyewx444-515JhornjrgcAdams County Regional Medical CenterPotassium [Moles/volume] in Serum or PlasmaOrdered By: Talib Faustin on 46-63-7288Udrhlmtcg [Moles/Vol]Potassium [Moles/volume] in Serum or Plasma3.5-5.1FHarrison Community HospitalProtein [Mass/volume] in Serum or PlasmaOrdered By: Talib Faustin on 31-87-0342Jopwggz [Mass/Vol]Protein [Mass/volume] in Serum or Plasma6.4-8.9[facility] Medical CenterRBC Auto (Bld) [#/Vol]Ordered By: Talib Faustin on 44-35-3658IVF (Bld) [#/Vol]Erythrocytes [#/volume] in Blood by Automated countLow3.90-5.60 The Jewish Hospitalerum or plasma albumin/globulin mass ratio Ordered By: Talib Faustin on 02-47-2010Nalqipq/Globulin [Mass ratio]Serum or plasma albumin/globulin mass ratioThe Jewish Hospitalerum or plasma anion gap determinationOrdered By: Talib Faustin on 02-54-2894Gzjud gap [Moles/Vol]Serum or plasma anion gap determination6.0-15.0The Jewish Hospitalodium [Moles/volume] in Serum or PlasmaOrdered By: Talib Faustin on 50-73-9940Umnfct [Moles/Vol]Sodium [Moles/volume] in Serum or Hqmtme768-476 [facility] CenterUrea nitrogen [Mass/volume] in Serum or Plasma Ordered By: Talib Faustin on 13-50-7847Sixs nitrogen [Mass/Vol]Urea nitrogen [Mass/volume] in Serum or PlasmaHigh7-25[facility] Medical CenterWBC Auto (Bld) [#/Vol]Ordered By: Talib Faustin on 06-61-3343FYH (Bld) [#/Vol] Leukocytes [#/volume] in Blood by Automated count4.1-10.5FHarrison Community HospitalComplete Blood Count Auto Diffon 21-64-1822Vrvjyzthm (Bld) [#/Vol] 0.0 10*3/uLNormal0.0-0.2The [facility]ly [facility] Physician GroupComment on above:Result Comment: PERFORMED BY: [place] [address] PATHOLOGIST PERSONAL CARE AID HEBER SHANNON M.D.Performed By: #### MG, CMP, CBC #### [facility] [address] [place] [address] USAPerformed By: #### MG, SCAN CBC, CMP #### [facility] [address] [place] [address] USABasophils/100 WBC (Bld)0.5 %Normal.The Formerly [facility] Physician GroupComment on above:Performed By: #### MG, CMP, CBC #### [facility] [address] [place] [address] USAPerformed By: #### MG, SCAN CBC, CMP #### [place] [address] USAEosinophils (Bld) [#/Vol]0.1 10*3/uLNormal0.0-0.45The Formerly [facility] Physician GroupComment on above:Performed By: #### MG, CMP, CBC #### [place] [address] USAPerformed By: #### MG, SCAN CBC, CMP #### [place] [address] USAEosinophils/100 WBC (Bld)1.4 %Normal.The Formerly [facility] Physician GroupComment on above:Performed By: #### MG, CMP, CBC #### [place] [address] USAPerformed By: #### MG, SCAN CBC, CMP #### [place] [address] USAErythrocyte distribution width (RBC) [Ratio]13.4 %Normal 12.0-14.8The Formerly [facility] Physician GroupComment on above:Performed By: #### MG, CMP, CBC #### [place] [address] USAPerformed By: #### MG, SCAN CBC, CMP #### [place] [address] USAHematocrit (Bld) [Volume fraction]35.7 %Low38.8-50.0The Formerly [facility] Physician GroupComment on above:Performed By: #### MG, CMP, CBC #### [place] [address] USAPerformed By: #### MG, SCAN CBC, CMP #### [place] [address] USAHemoglobin (Bld) [Mass/Vol]12.0 g/dLLow13.0-17.0The Formerly [facility] Physician GroupComment on above:Performed By: #### MG, CMP, CBC #### [place] [address] USAPerformed By: #### MG, SCAN CBC, CMP #### [place] [address] USALymphocytes (Bld) [#/Vol]1.3 10*3/uLNormal1.00-4.8The Formerly [facility] Physician GroupComment on above:Performed By: #### MG, CMP, CBC #### [place] [address] USAPerformed By: #### MG, SCAN CBC, CMP #### [place] [address] USALymphocytes/100 WBC (Bld)11.6 %Normal.The Formerly [facility] Physician GroupComment on above:Performed By: #### MG, CMP, CBC #### [place] [address] USAPerformed By: #### MG, SCAN CBC, CMP #### [address]H (RBC) [Entitic mass]30.7 vjDxvtfy63.5-35.2The Formerly [facility] Physician GroupComment on above:Performed By: #### MG, CMP, CBC #### [place] [address] USAPerformed By: #### MG, SCAN CBC, CMP #### [address]V (RBC) [Entitic vol]91.3 rTMawygj66.5-101The Formerly [facility] Physician GroupComment on above:Performed By: #### MG, CMP, CBC #### [place] [address] USAPerformed By: #### MG, SCAN CBC, CMP #### [place] [address] USAMean Corpuscular HGB Conc33.7 g/uFAzizkj77.5-35.6The Formerly [facility] Physician GroupComment on above:Performed By: #### MG, CMP, CBC #### [place] [address] USAPerformed By: #### MG, SCAN CBC, CMP #### [place] [address] USAMonocytes (Bld) [#/Vol]0.8 10*3/uLNormal0.0-0.8The Formerly [facility] Physician GroupComment on above:Performed By: #### MG, CMP, CBC #### [place] [address] USAPerformed By: #### MG, SCAN CBC, CMP #### [place] [address] USAMonocytes/100 WBC (Bld)7.4 %Normal.The Formerly [facility] Physician GroupComment on above:Performed By: #### MG, CMP, CBC #### [place] [address] USAPerformed By: #### MG, SCAN CBC, CMP #### [place] [address] USANeutrophils (Bld) [#/Vol]8.7 10*3/uLHigh1.8-7.7The Formerly [facility] Physician GroupComment on above:Performed By: #### MG, CMP, CBC #### [place] [address] USAPerformed By: #### MG, SCAN CBC, CMP #### [place] [address] USANeutrophils/100 WBC (Bld)79.1 %Normal.The Formerly [facility] Physician GroupComment on above:Performed By: #### MG, CMP, CBC #### [place] [address] USAPerformed By: #### MG, SCAN CBC, CMP #### [place] [address] USANRBC%0.1 /100{WBC}Normal0-0.5The [facility] Comment on above:Performed By: #### MG, CMP, CBC #### [place] [address] USAPerformed By: #### MG, SCAN CBC, CMP #### [facility] [address] [place] [address] USAPlatelet mean volume (Bld) [Entitic vol]7.9 fLNormal 6.6-10.1The Formerly [facility] Physician GroupComment on above:Performed By: #### MG, CMP, CBC #### [place] [address] USAPerformed By: #### MG, SCAN CBC, CMP #### [place] [address] USAPlatelets (Bld) [#/Vol]179 10*3/oVLwknse480-693Hdh Formerly [facility] Physician GroupComment on above:Performed By: #### MG, CMP, CBC #### [place] [address] USAPerformed By: #### MG, SCAN CBC, CMP #### [place] [address] USARBC (Bld) [#/Vol]3.91 10*6/uLNormal3.90-5.60The Formerly [facility] Physician GroupComment on above:Performed By: #### MG, CMP, CBC #### [place] [address] USAPerformed By: #### MG, SCAN CBC, CMP #### [place] [address] USAWBC (Bld) [#/Vol]11.0 10*3/uLHigh4.1-10.5The Formerly [facility] Physician GroupComment on above:Performed By: #### MG, CMP, CBC #### [place] [address] USAPerformed By: #### MG, SCAN CBC, CMP #### [place] [address] USAComprehensive Metabolic Panelon 84-38-2696Ssgqlqs [Mass/Vol]3.8 g/dLNormal3.5-5.7The Formerly [facility] Physician GroupComment on above: Performed By: #### MG, CMP, CBC #### [facility] [address] [place] [address] USAPerformed By: #### UA #### [facility] [address] [place] [address] USAAlbumin/Globulin [Mass ratio]1.5 {ratio}NormalThe Formerly [facility] Physician GroupComment on above:Performed By: #### MG, CMP, CBC #### [facility] [address] [place] [address] USAPerformed By: #### UA #### [facility] [address] [place] [address] USAALP [Catalytic activity/Vol]84 U/RWhidct49-721Omk Formerly [facility] Physician GroupComment on above:Performed By: #### MG, CMP, CBC #### [facility] [address] [place] [address] USAPerformed By: #### UA #### [facility] [address] [place] [address] USAALT [Catalytic activity/Vol]12 U/LNormal7-52The Formerly [facility] Physician GroupComment on above:Performed By: #### MG, CMP, CBC #### [facility] [address] [place] [address] USAPerformed By: #### UA #### [facility] [address] [place] [address] USAAnion gap [Moles/Vol]10.1 mmol/LNormal6.0-15.0The Formerly [facility] Physician GroupComment on above:Performed By: #### MG, CMP, CBC #### [facility] [address] [place] [address] USAPerformed By: #### UA #### [facility] [address] [place] [address] USAAST [Catalytic activity/Vol]11 U/VUhn04-53Ebk Former[facility] Physician GroupComment on above:Performed By: #### MG, CMP, CBC #### [facility] [address] [place] [address] USAPerformed By: #### UA #### [facility] [address] [place] [address] USABilirubin [Mass/Vol]0.6 mg/dLNormal0.3-1.0The Formerly [facility] Physician GroupComment on above:Performed By: #### MG, CMP, CBC #### [facility] [address] [place] [address] USAPerformed By: #### UA #### [facility] [address] [place] [address] USACalcium [Mass/Vol]9.2 mg/dLNormal8.6-10.3The Formerly [facility] Physician GroupComment on above:Performed By: #### MG, CMP, CBC #### [facility] [address] [place] [address] USAPerformed By: #### UA #### [place] [address] USAChloride [Moles/Vol]107 mmol/ZZdqfun21-100Eqp Former[facility] Physician GroupComment on above:Performed By: #### MG, CMP, CBC #### [facility] [address] [place] [address] USAPerformed By: #### UA #### [facility] [address] [place] [address] USACO2 [Moles/Vol]25.1 mmol/SKqoiyk38.0-31.0The Formerly [facility] Physician GroupComment on above:Performed By: #### MG, CMP, CBC #### [facility] [address] [place] [address] USAPerformed By: #### UA #### [facility] [address] [place] [address] USACreatinine [Mass/Vol]0.95 mg/dLNormal0.70-1.30The Formerly [facility] Physician GroupComment on above:Performed By: #### MG, CMP, CBC #### [facility] [address] [place] [address] USAPerformed By: #### UA #### [facility] [address] [place] [address] USACreatinine Clr Calc Njtsdjto52.56NormalThe Formerly [facility] Physician GroupComment on above:Performed By: #### MG, CMP, CBC #### [facility] [address] [place] [address] USAPerformed By: #### UA #### [facility] [address] [place] [address] USAGFR/1.73 sq M.predicted MDRD (S/P/Bld) [Vol rate/Area] mL/min/{1.73_m2}NormalThe Formerly [facility] Physician GroupComment on above:Performed By: #### MG, CMP, CBC #### [facility] [address] [place] [address] USAPerformed By: #### UA #### [facility] [address] [place] [address] USAGlobulin (S) [Mass/Vol]2.6 g/dLNoNovant Health Thomasville Medical Center Physician GroupComment on above:Performed By: #### MG, CMP, CBC #### [facility] [address] [place] [address] USAPerformed By: #### UA #### [place] [address] USAGlucose [Mass/Vol]115 mg/lECwsw72-302Zcr Former[facility] Physician GroupComment on above:Result Comment: Random Glucose Reference Range is dependent on time and content of last meal. Glucose of more than 200 mg/dL in a nonstressed, ambulatory subject supports the diagnosis of Diabetes Mellitus. ADA recommended reference rangePerformed By: #### MG, CMP, CBC #### [facility] [address] [place] [address] USAPerformed By: #### UA #### [facility] [address] [place] [address] USAPotassium [Moles/Vol]4.2 mmol/LNormal3.5-5.1The Formerly [facility] Physician GroupComment on above:Performed By: #### MG, CMP, CBC #### [place] [address] USAPerformed By: #### UA #### [place] [address] USAProtein [Mass/Vol]6.4 g/dLNormal6.4-8.9The Formerly [facility] Physician GroupComment on above:Performed By: #### MG, CMP, CBC #### [facility] [address] [place] [address] USAPerformed By: #### UA #### [facility] [address] [place] [address] USASodium [Moles/Vol]138 mmol/AXyyyxc020-874Nhb Former[facility] Physician GroupComment on above:Performed By: #### MG, CMP, CBC #### [facility] [address] [place] [address] USAPerformed By: #### UA #### [facility] [address] [place] [address] USAUrea nitrogen [Mass/Vol]30 mg/dLHigh7-25The Formerly [facility] Physician GroupComment on above:Performed By: #### MG, CMP, CBC #### [facility] [address] [place] [address] USAPerformed By: #### UA #### [place] [address] USAMagnesiumon 83-13-1529Kaolwbjnj [Mass/Vol]1.8 mg/dLLow 1.9-2.7The Formerly [facility] Physician GroupComment on above:Result Comment: PERFORMED BY: [place] [address] PATHOLOGIST PERSONAL CARE AID HEBER SHANNON M.D.Performed By: #### MG, CMP, CBC #### [facility] [address] [place] [address] USAPerformed By: #### UA #### [facility] [address] [place] [address] USAMagnesium [Mass/volume] in Serum or PlasmaOrdered By: Talib Faustin on 68-58-9426Upczaziln [Mass/Vol]Magnesium [Mass/volume] in Serum or PlasmaLow1.9-2.7FHarrison Community HospitalOffice Visiton 07-19-2024 Follow-up [id number] Jeremie Bennett 1940 M Date Provider Department Center 07/19/2024 BOY SON Nicolette Dimitri Family History Problem Relation Age of Onset Coronary artery disease Mother Kidney disease Mother Heart failure Mother Family Status - Relation Status Age at Mother Level of Service:[address] [place] POSTOP FOLLOW UP VISIT RELATED TO ORIGINAL Wayne HospitalGLUCOSE POCT GLUCOMETERSon 91-37-7236HLLTNLK7 Glu2: Cleaned MeterNOTextual Analytics SolutionsGlucose [Mass/Vol]107 mg/dLCox Walnut Lawn Comment on above:Random Glucose Reference Range is dependent on time and content of last meal. Glucose of more than 200 mg/dL in a nonstressed, ambulatory subject supports the diagnosis of Diabetes Mellitus. [facility] Executive CaddieGlucose Glucometer (dC) [Mass/Vol]Ordered By: Matteo Melo on 25-90-9548Xwvocho [Mass/Vol]Capillary blood glucose measurement by glucometer (mass/volume)[facility] Medical CenterComment on above:Random Glucose Reference Range is dependent on time and content of last meal. Glucose of more than 200 mg/dL in a nonstressed, ambulatory subject supports the diagnosis of Diabetes Mellitus.Glucose Poct Glucometerson 30-73-8308Hrdtkow5Hqq2: Cleaned MeterAdventHealth Daytona Beach Physician GroupComment on above:Result Comment: PERFORMED BY: [place] [address] PATHOLOGIST PERSONAL CARE AID HEBER SHANNON M.D.Performed By: #### GLULS #### Point of Care testing ,Performed By: #### ESR #### [place] [address] USAGlucose [Mass/Vol]107 mg/dLAdventHealth Daytona Beach Physician GroupComment on above:Result Comment: Random Glucose Reference Range is dependent on time and content of last meal. Glucose of more than 200 mg/dL in a nonstressed, ambulatory subject supports the diagnosis of Diabetes Mellitus.Performed By: #### GLULS #### Point of Care testing ,Performed By: #### ESR #### [address] [address] USANo Panel InformationOrdered By: Matteo Melo on 71-59-4121Zdzgmgq Glucose CommentGlu2: cleaned meterAdams County Regional Medical CenterX-ray reportOrdered By: Mario Urias on 37-22-7394Hftpi reportSCCI HOSPITAL LIMA Main [place] [address] [place] [id number] XRay Report Signed Patient: Jeremie Bennett MR#: [id number] : 1940 Acct:[id number] Age/Sex: 83 / M ADM Date: 5 Loc: [place] Room: Type: [facility] SD Attending Dr: Matteo Melo MD [...] Urias Jr., D.O.07/17/2024 2:07 PM Dictation Location: [place] [address] Transcribed By: [facility] 07/17/24 1407 Dictated By: Mario Urias Jr, DO 07/17/24 1407 Signed By: 07/17/24 140Mitchell [facility] CenterXR chest 1V portableon 34-75-8425FC chest 1V portableSCCI HOSPITAL LIMA [place] [address] [place] [address] XRay Report Signed Patient: Jeremie Bennett MR#: [id number] : 1940 Acct:[id number] Age/Sex: 83 / M ADM Date: 07/17/24 Loc: ID Room: Type: [facility] [place] Attending Dr: Matteo Melo MD [...] Urias Jr, DO 07/17/241406 Signed By: 07/17/24 DavyLincolnHealth GroupXR chest 1V portableSCCI HOSPITAL LIMA [place] [address] [place] [address] XRay Report Signed Patient: Jeremie Bennett MR#: [id number] : 1940 Acct:[id number] Age/Sex: 83 / M ADM Date: 07/17/24 Loc: ID Room: Type: [facility] Attending Dr: Matteo Melo MD Copies to: [...] Urias Jr, DO 07/17/241406 Signed By: 07/17/24 DavyAdventHealth Daytona Beach Physician GroupAlanine aminotransferase [Enzymatic activity/volume] in Serum or PlasmaOrdered By: Talib Faustin on 16-55-6115BWE [Catalytic activity/Vol]Alanine aminotransferase [Enzymatic activity/volume] in Serum or Plasma7-52[facility] Medical CenterAlbumin [Mass/volume] in Serum or Plasma by Bromocresol green (BCG) dye binding metho Ordered By: Talib Faustin on 27-02-7126Ivemlax BCG dye [Mass/Vol]Albumin [Mass/volume] in Serum or Plasma by Bromocresol green (BCG) dye binding metho 3.5-5.7FHarrison Community HospitalAlkaline phosphatase [Enzymatic activity/volume] in Serum or PlasmaOrdered By: Talib Faustin on 64-36-8430UWU [Catalytic activity/Vol]Alkaline phosphatase [Enzymatic activity/volume] in Serum or Eonesr56-372AbvbsbqkeAdams County Regional Medical CenterAspartate aminotransferase [Enzymatic activity/volume] in Serum or PlasmaOrdered By: Talib Faustin on 84-10-0249AZV [Catalytic activity/Vol]Aspartate aminotransferase [Enzymatic activity/volume] in Serum or AqxqbnGyd50-52HtdwtiqxmAdams County Regional Medical Center Basophils Auto (Bld) [#/Vol]Ordered By: Talib Faustin on 72-78-0057Wtcpkgpwa (Bld) [#/Vol]Automated basophil count0.0-0.2FHarrison Community Hospital Basophils/100 WBC Auto (Bld)Ordered By: Talib Faustin on 07-12-2024 Basophils/100 WBC (Bld)Automated basophil %.[facility] Bilirubin.total [Mass/volume] in Serum or PlasmaOrdered By: Talib Faustin on 09-80-7230Wurloenat [Mass/Vol]Bilirubin.total [Mass/volume] in Serum or Plasma 0.3-1.0[facility] Medical CenterCalcium [Mass/volume] in Serum or Plasma Ordered By: Talib Faustin on 70-30-5901Uxoepiu [Mass/Vol]Calcium [Mass/volume] in Serum or Plasma8.6-10.3FHarrison Community HospitalCarbon dioxide, total [Moles/volume] in Serum or PlasmaOrdered By: Talib Faustin on 80-69-7036XS5 [Moles/Vol]Carbon dioxide, total [Moles/volume] in Serum or Dlzlcp62.0-31.0 [facility] Medical CenterChloride [Moles/volume] in Serum or Plasma Ordered By: Talib Faustin on 74-67-1647Thxspsdl [Moles/Vol]Chloride [Moles/volume] in Serum or Jzxjte98-770GgahqbdceAdams County Regional Medical CenterComplete Blood Count Auto Diffon 39-25-1779Yooilcgpm (Bld) [#/Vol]0.0 10*3/uLNormal 0.0-0.2The Formerly [facility] Physician GroupComment on above:Result Comment: PERFORMED BY: [place] [address] PATHOLOGIST PERSONAL CARE AID HEBER SHANNON M.D.Performed By: #### CBC, CMP, MG #### [facility] [address] [place] [address] USAPerformed By: #### UA #### [facility] [address] [place] [address] USABasophils/100 WBC (Bld)0.3 %Normal.The Formerly [facility] Physician GroupComment on above:Performed By: #### CBC, CMP, MG #### [facility] [address] [place] [address] USAPerformed By: #### UA #### [place] [address] USAEosinophils (Bld) [#/Vol]0.2 10*3/uLNormal0.0-0.45The Formerly [facility] Physician GroupComment on above:Performed By: #### CBC, CMP, MG #### [facility] [address] [place] [address] USAPerformed By: #### UA #### [facility] [address] [place] [address] USAEosinophils/100 WBC (Bld)1.7 %Normal.The Formerly [facility] Physician GroupComment on above:Performed By: #### CBC, CMP, MG #### [facility] [address] [place] [address] USAPerformed By: #### UA #### [place] [address] USAErythrocyte distribution width (RBC) [Ratio]13.7 %Normal 12.0-14.8The Formerly [facility] Physician GroupComment on above:Performed By: #### CBC, CMP, MG #### [place] [address] USAPerformed By: #### UA #### [place] [address] USAHematocrit (Bld) [Volume fraction]38.0 %Low38.8-50.0The Formerly [facility] Physician GroupComment on above:Performed By: #### CBC, CMP, MG #### [place] [address] USAPerformed By: #### UA #### [place] [address] USAHemoglobin (Bld) [Mass/Vol]12.6 g/dLLow13.0-17.0The Formerly [facility] Physician GroupComment on above:Performed By: #### CBC, CMP, MG #### [place] [address] USAPerformed By: #### UA #### [place] [address] USALymphocytes (Bld) [#/Vol]2.0 10*3/uLNormal1.00-4.8The Formerly [facility] Physician GroupComment on above:Performed By: #### CBC, CMP, MG #### [place] [address] USAPerformed By: #### UA #### [place] [address] USALymphocytes/100 WBC (Bld)19.2 %Normal.The Formerly [facility] Physician GroupComment on above:Performed By: #### CBC, CMP, MG #### [place] [address] USAPerformed By: #### UA #### [address] [address] USAMCH (RBC) [Entitic mass]30.7 tsPlqkbs11.5-35.2The Formerly [facility] Physician GroupComment on above:Performed By: #### CBC, CMP, MG #### [place] [address] USAPerformed By: #### UA #### [address]V (RBC) [Entitic vol]92.2 rDLoaigq02.5-101The Formerly [facility] Physician GroupComment on above:Performed By: #### CBC, CMP, MG #### [place] [address] USAPerformed By: #### UA #### [place] [address] USAMean Corpuscular HGB Conc33.3 g/vUFmedzl10.5-35.6The Formerly [facility] Physician GroupComment on above:Performed By: #### CBC, CMP, MG #### [place] [address] USAPerformed By: #### UA #### [place] [address] USAMonocytes (Bld) [#/Vol]0.8 10*3/uLNormal0.0-0.8The Formerly [facility] Physician GroupComment on above:Performed By: #### CBC, CMP, MG #### [place] [address] USAPerformed By: #### UA #### [place] [address] USAMonocytes/100 WBC (Bld)7.5 %Normal.The Formerly [facility] Physician GroupComment on above:Performed By: #### CBC, CMP, MG #### [place] [address] USAPerformed By: #### UA #### [place] [address] USANeutrophils (Bld) [#/Vol]7.3 10*3/uLNormal1.8-7.7The Formerly [facility] Physician GroupComment on above:Performed By: #### CBC, CMP, MG #### [facility] [address] [place] [address] USAPerformed By: #### UA #### [facility] [address] [place] [address] USANeutrophils/100 WBC (Bld)71.3 %Normal.The Formerly [facility] Physician GroupComment on above:Performed By: #### CBC, CMP, MG #### [facility] [address] [place] [address] USAPerformed By: #### UA #### [facility] [address] [place] [address] USANRBC%0.1 /100{WBC}Normal0-0.5The Formerly [facility] Comment on above:Performed By: #### CBC, CMP, MG #### [facility] [address] [place] [address] USAPerformed By: #### UA #### [facility] [address] [place] [address] USAPlatelet mean volume (Bld) [Entitic vol]9.0 fLNormal 6.6-10.1The Formerly [facility] Physician GroupComment on above:Performed By: #### CBC, CMP, MG #### [facility] [address] [place] [address] USAPerformed By: #### UA #### [facility] [address] [place] [address] USAPlatelets (Bld) [#/Vol]197 10*3/kNDbwkzl331-250Dcg Former[facility] Physician GroupComment on above:Performed By: #### CBC, CMP, MG #### [facility] [address] [place] [address] USAPerformed By: #### UA #### [facility] [address] [place] [address] USARBC (Bld) [#/Vol]4.12 10*6/uLNormal3.90-5.60The Formerly [facility] Physician GroupComment on above:Performed By: #### CBC, CMP, MG #### [facility] [address] [place] [address] USAPerformed By: #### UA #### [facility] [address] [place] [address] USAWBC (Bld) [#/Vol]10.2 10*3/uLNormal4.1-10.5The Formerly [facility] Physician GroupComment on above:Performed By: #### CBC, CMP, MG #### [facility] [address] [place] [address] USAPerformed By: #### UA #### [place] [address] USAComprehensive Metabolic Panelon 12-93-9860Ykarlta [Mass/Vol]3.9 g/dLNormal3.5-5.7The Formerly [facility] Physician GroupComment on above: Performed By: #### CBC, BMP #### [facility] [address] [place] [address] USAPerformed By: #### UA #### [facility] [address] [place] [address] USAAlbumin/Globulin [Mass ratio]1.6 {ratio}NormalThe Formerly [facility] Physician GroupComment on above:Performed By: #### CBC, BMP #### [facility] [address] [place] [address] USAPerformed By: #### UA #### [facility] [address] [place] [address] USAALP [Catalytic activity/Vol]86 U/VOkqoha89-757Xot Formerly [facility] Physician GroupComment on above:Performed By: #### CBC, BMP #### [facility] [address] [place] [address] USAPerformed By: #### UA #### [facility] [address] [place] [address] USAALT [Catalytic activity/Vol]15 U/LNormal7-52The Formerly [facility] Physician GroupComment on above:Performed By: #### CBC, BMP #### [place] [id number] USAPerformed By: #### UA #### [facility] [address] [place] [address] USAAnion gap [Moles/Vol]12.2 mmol/LNormal6.0-15.0The Formerly [facility] Physician GroupComment on above:Performed By: #### CBC, BMP #### [facility] [address] [place] [address] USAPerformed By: #### UA #### [facility] [address] [place] [address] USAAST [Catalytic activity/Vol]11 U/YEfo90-84Cce Formerly [facility] Physician GroupComment on above:Performed By: #### CBC, BMP #### [facility] [address] [place] [address] USAPerformed By: #### UA #### [facility] [address] [place] [address] USABilirubin [Mass/Vol]0.7 mg/dLNormal0.3-1.0The Formerly [facility] Physician GroupComment on above:Performed By: #### CBC, BMP #### [facility] [address] [place] [address] USAPerformed By: #### UA #### [place] [address] USACalcium [Mass/Vol]9.0 mg/dLNormal8.6-10.3The Formerly [facility] Physician GroupComment on above:Performed By: #### CBC, BMP #### [facility] [address] [place] [address] USAPerformed By: #### UA #### [facility] [address] [place] [address] USAChloride [Moles/Vol]102 mmol/IBnnctg00-129Jch Formerly [facility] Physician GroupComment on above:Performed By: #### CBC, BMP #### [facility] [address] [place] [address] USAPerformed By: #### UA #### [facility] [address] [place] [address] USACO2 [Moles/Vol]27.6 mmol/OZhyals86.0-31.0The Formerly [facility] Physician GroupComment on above:Performed By: #### CBC, BMP #### [facility] [address] [place] [address] USAPerformed By: #### UA #### [facility] [address] [place] [address] USACreatinine [Mass/Vol]1.01 mg/dLNormal0.70-1.30The Formerly [facility] Physician GroupComment on above:Performed By: #### CBC, BMP #### [facility] [address] [place] [address] USAPerformed By: #### UA #### [facility] [address] [place] [address] USACreatinine Clr Calc Copzxsnd95.09NormJackson Memorial Hospital Physician GroupComment on above:Performed By: #### CBC, BMP #### [facility] [address] [place] [address] USAPerformed By: #### UA #### [facility] [address] [place] [address] USAGFR/1.73 sq M.predicted MDRD (S/P/Bld) [Vol rate/Area] mL/min/{1.73_m2}NormalThe Formerly [facility] Physician GroupComment on above:Performed By: #### CBC, BMP #### [facility] [address] [place] [address] USAPerformed By: #### UA #### [facility] [address] [place] [address] USAGlobulin (S) [Mass/Vol]2.5 g/dLAdventHealth Daytona Beach Physician GroupComment on above:Performed By: #### CBC, BMP #### [facility] [address] [place] [address] USAPerformed By: #### UA #### [facility] [address] [place] [address] USAGlucose [Mass/Vol]120 mg/bPMooq38-996Fgb Formerly [facility] Physician GroupComment on above:Result Comment: Random Glucose Reference Range is dependent on time and content of last meal. Glucose of more than 200 mg/dL in a nonstressed, ambulatory subject supports the diagnosis of Diabetes Mellitus. ADA recommended reference rangePerformed By: #### CBC, BMP #### [facility] [address] [place] [address] USAPerformed By: #### UA #### [place] [address] USAPotassium [Moles/Vol]4.8 mmol/LNormal3.5-5.1The Formerly [facility] Physician GroupComment on above:Performed By: #### CBC, BMP #### [facility] [address] [place] [address] USAPerformed By: #### UA #### [place] [address] USAProtein [Mass/Vol]6.4 g/dLNormal6.4-8.9The Formerly [facility] Physician GroupComment on above:Performed By: #### CBC, BMP #### [facility] [address] [place] [address] USAPerformed By: #### UA #### [place] [address] USASodium [Moles/Vol]137 mmol/LIrkmqt577-996Xmw Formerly [facility] Physician GroupComment on above:Performed By: #### CBC, BMP #### [place] [address] USAPerformed By: #### UA #### [facility] [address] [place] [address] USAUrea nitrogen [Mass/Vol]26 mg/dLHigh7-25The Formerly [facility] Physician GroupComment on above:Performed By: #### CBC, BMP #### [facility] [address] [place] [address] USAPerformed By: #### UA #### [place] [address] USACreatinine [Mass/volume] in Serum or PlasmaOrdered By: Talib Faustin on 20-24-1575Gzroqqzjzm [Mass/Vol]Creatinine [Mass/volume] in Serum or Plasma0.70-1.30[facility] CenterEosinophils Auto (Bld) [#/Vol]Ordered By: Talib Faustin on 34-45-9578Vausezgunph (Bld) [#/Vol] Automated eosinophil count0.0-0.45[facility] Eosinophils/100 WBC Auto (Bld)Ordered By: rick Faustin on 07-12-2024 Eosinophils/100 WBC (Bld)Automated eosinophil %.[facility] CenterErythrocyte distribution width Auto (RBC) [Ratio]Ordered By: Talib Hargrove on 39-04-6975Ekqjmjkmezv distribution width (RBC) [Ratio]Erythrocyte distribution width [Ratio] by Automated count12.0-14.8[facility] CenterGlobulin Calc (S) [Mass/Vol]Ordered By: Talib Faustin on 07-12-2024 Globulin (S) [Mass/Vol]Serum globulin measurement by calculation (mass/volume) [facility] CenterGlucose [Mass/volume] in Serum or PlasmaOrdered By: Talib Faustin on 10-85-9303Jzukwpu [Mass/Vol]Glucose [Mass/volume] in Serum or KjozncTgym44-389UvcgsagbpAdams County Regional Medical CenterComment on above:ADA recommended reference rangeRandom Glucose Reference Range is dependent on time and content of last meal. Glucose of more than 200 mg/dL in a nonstressed, ambulatory subject supports the diagnosisof Diabetes Mellitus.Hematocrit Auto (Bld) [Volume fraction]Ordered By: Talib Faustin on 86-46-7745Aloczxnefu (Bld) [Volume fraction]Hematocrit [Volume Fraction] of Blood by Automated countLow 38.8-50.0[facility] CenterHemoglobin [Mass/volume] in Blood Ordered By: Talib Faustin on 50-55-3135Nelamivohw (Bld) [Mass/Vol]Hemoglobin [Mass/volume] in AchtxEny90.0-17.0[facility] CenterLeukocytes [#/volume] corrected for nucleated erythrocytes in Blood by Automated coun Ordered By: Talib Faustin on 44-35-6093OCP corrected for nucl RBC Auto (Bld) [#/Vol]Leukocytes [#/volume] corrected for nucleated erythrocytes in Blood by Automated coun4.1-10.5FHarrison Community HospitalLymphocytes Auto (Bld) [#/Vol]Ordered By: Talib Faustin on 61-00-1186Gwrgepgobgd (Bld) [#/Vol] Lymphocytes [#/volume] in Blood by Automated count1.00-4.8[facility] CenterLymphocytes/100 WBC Auto (Bld)Ordered By: Talbi Faustin on 45-53-0696Wtubdynkkvz/100 WBC (Bld)Lymphocytes/100 leukocytes in Blood by Automated count.[facility] Auto (RBC) [Entitic mass] Ordered By: Talib Faustin on 54-65-9053JQJ (RBC) [Entitic mass]MCH [Entitic mass] by Automated count27.5-35.2FHarrison Community HospitalMCHC Auto (RBC) [Mass/Vol]Ordered By: Talib Faustin on 46-94-9266QXIW (RBC) [Mass/Vol] MCHC [Mass/volume] by Automated count32.5-35.6FHarrison [facility] Hospital MCV Auto (RBC) [Entitic vol]Ordered By: Talib Faustin on 80-68-2232JPX (RBC) [Entitic vol]MCV [Entitic volume] by Automated count83.5-101[facility] CenterMagnesiumon 35-38-5552Xbzugdtpr [Mass/Vol]1.9 mg/dLNormal1.9-2.7 The Formerly [facility] Physician GroupComment on above:Result Comment: PERFORMED BY: [place] [address] PATHOLOGIST PERSONAL CARE AID HEBER SHANNON M.D.Performed By: #### CBC, BMP #### [facility] [address] [place] [address] USAPerformed By: #### UA #### [facility] [address] [place] [address] USAMagnesium [Mass/volume] in Serum or PlasmaOrdered By: Talib Faustin on 22-02-5092Cswvepqth [Mass/Vol]Magnesium [Mass/volume] in Serum or Plasma1.9-2.7FHarrison Community HospitalMonocytes Auto (Bld) [#/Vol] Ordered By: Talib Faustin on 07-10-7248Povievpua (Bld) [#/Vol]Automated blood monocyte count0.0-0.8[facility] CenterMonocytes/100 WBC Auto (Bld)Ordered By: rick Faustin on 07-16-8559Fmpcylomj/100 WBC (Bld)Automated monocyte %.[facility] CenterNeutrophils Auto (Bld) [#/Vol] Ordered By: Talib Faustin on 63-27-8608Pfjagcpjdvf (Bld) [#/Vol]Neutrophils [#/volume] in Blood by Automated count1.8-7.7FHarrison Community Hospital Neutrophils/100 WBC Auto (Bld)Ordered By: rick Faustin on 07-12-2024 Neutrophils/100 WBC (Bld)Automated neutrophil %.[facility] CenterNo Panel InformationOrdered By: rick Faustin on 73-89-1748Dwdqeeipy GFR (CKD-EPI)> 60.0 mL/MinAdams County Regional Medical CenterPharmacy Creatinine Clearance (Chem53.09[facility] CenterNucleated erythrocytes [Presence] in Blood by Automated countOrdered By: Talib Faustin on 07-12-2024 Nucleated RBC Auto Ql (Bld)Nucleated erythrocytes [Presence] in Blood by Automated count0-0.5FHarrison Community HospitalPlatelet mean volume Auto (Bld) [Entitic vol]Ordered By: rick Faustin on 89-52-0986Ixwolnrk mean volume (Bld) [Entitic vol]Platelet mean volume [Entitic volume] in Blood by Automated count6.6-10.1FHarrison Community HospitalPlatelets Auto (Bld) [#/Vol] Ordered By: rick Faustin on 56-01-7762Hvjrokcmi (Bld) [#/Vol]Platelets [#/volume] in Blood by Automated rqajm875-709DykawuvdcAdams County Regional Medical Center Potassium [Moles/volume] in Serum or PlasmaOrdered By: Talib Faustin on 42-94-1612Znxexrbsj [Moles/Vol]Potassium [Moles/volume] in Serum or Plasma 3.5-5.1FHarrison Community HospitalProtein [Mass/volume] in Serum or Plasma Ordered By: Talib Faustin on 32-55-2534Cyptffg [Mass/Vol]Protein [Mass/volume] in Serum or Plasma6.4-8.9[facility] CenterRBC Auto (Bld) [#/Vol] Ordered By: Talib Faustin on 03-79-5497GXY (Bld) [#/Vol]Erythrocytes [#/volume] in Blood by Automated count3.90-5.60The Jewish Hospitalerum or plasma albumin/globulin mass ratioOrdered By: Talib Faustin on 07-12-2024 Albumin/Globulin [Mass ratio]Serum or plasma albumin/globulin mass ratio The Jewish Hospitalerum or plasma anion gap determinationOrdered By: Talib Faustin on 14-21-4080Nnjon gap [Moles/Vol]Serum or plasma anion gap determination6.0-15.0The Jewish Hospitalodium [Moles/volume] in Serum or PlasmaOrdered By: Talib Faustin on 39-58-4561Qtnvzo [Moles/Vol]Sodium [Moles/volume] in Serum or Gzscin442-525AecmryhyzAdams County Regional Medical CenterUrea nitrogen [Mass/volume] in Serum or PlasmaOrdered By: Talib Faustin on 34-93-2030Pmpd nitrogen [Mass/Vol]Urea nitrogen [Mass/volume] in Serum or Plasma High7-25[facility] CenterWBC Auto (Bld) [#/Vol]Ordered By: Talib Faustin on 52-08-1280ETR (Bld) [#/Vol]Leukocytes [#/volume] in Blood by Automated count4.1-10.5FHarrison Community HospitalANESon 24-68-1600FPGV Attestation signed by Stacey Patel MD at [...] Procedure: PPM generator change - dual Location: [facility] CHEMICAL PROCESSING SUPERVISOR 1 / [facility] VASCULAR [facility] (Cath) Providers: Stacey Patel MD [...] discussed with attending. Additional Equipment RequestsNormalUniversity of Nacogdoches Medical CenterHPon [id number] Attestation signed by Stacey Patel MD at [...] be an additional personal documentation from me. [place] Electrophysiology Consult Note [place] Cardiology Reason for visit: gen change 07/10/2024 [...] Tobacco Use: Medium Risk (05/11/2024) Received from [facility] Patient History Smoking Tobacco Use: Former Smokeless Tobacco Use: Former Passive Exposure: Not on file Alcohol Use: Not on file Financial Resource Strain: Not on file Food Insecurity: Not on file Transportation Needs: Not on file Physical Activity: Not on file Stress: Not on file Social Connections: Not on file Intimate Partner Violence: Unknown (07/08/2023) [place] Safety & Environment Fear of Current or Ex-Partner: Not on file Emotionally Abused: Not on file Physically Abused: Not on file Sexually Abused: Not on file Physically or Sexually Abused: Not on file Depression: Not at risk (04/07/2024) Received from [facility] PHQ-2 Patient Health Questionnaire-2 Score: 0 [...] upstroke, no b (more content not included)... [facility] HospitalNURSNOTEon 37-23-3699EIUOLOQZSS educated pt on d/c instructions. This included: [...] wheeled off of unit with all of belongings.[facility] HospitalNURSNOTECHG wipes and betadine nasal swabs completed.Normal [facility] HealthOrders Onlyon 47-37-2209Apjvrk [id number] Jeremie Bennett 1940 M Date Provider Department Center 07/10/2024 ELIF GONZALEZ [facility] Family History Problem Relation Age of Onset Coronary artery disease Mother Kidney disease Mother Heart failure Mother Family Status - Relation Status Age at MotherNormalUniversMercy Health – The Jewish HospitalCB w/ Auto DiffOrdered By: SYSTEM SYSTEM on 80-52-1988Envg form neutrophils/100 WBC (Bld)8.0 %High0.0-6.0 Remisol HemeComment on above:Performed By: #### [id number] #### [facility] [address], [place] [address]Eclzaytii (Bld) [#/Vol]0.0 E9/LNormal0.0-0.2Remisol HemeComment on above:Performed By: #### [id number] #### [facility] [address], [place] [address]Dlxqbbxjeks (Bld) [#/Vol]0.0 E9/LNormal0.0-0.5Remisol Heme Comment on above:Performed By: #### [id number] #### [facility] [address] [place] [address]Ihkwkeqeadk/100 WBC (Bld)0.0 %Normal0.0-8.0Remisol HemeComment on above:Performed By: #### [id number] #### [facility] [address] [place] [address] 786[address]Rwqmztyftlr distribution width (RBC) [Ratio]13.9 %Normal 10.9-14.2Remisol HemeComment on above:Performed By: #### [id number] #### [facility] [address] [place] [address]Nrlhhwskaj (Bld) [Volume fraction]39.7 %Piubsc07.7-49.0Remisol HemeComment on above:Performed By: #### [id number] #### [facility] [address] [place] [address]Msqnolcrng (Bld) [Mass/Vol]13.3 g/dLLow13.5-17.5Remisol Heme Comment on above:Performed By: #### [id number] #### [facility] [address] [place] [address]Jdpagtanndf (Bld) [#/Vol]2.2 E9/LNormal1.0-4.0Remisol Heme Comment on above:Performed By: #### [id number] #### [facility] [address] [place] [address] 67[address]Shmlxxjkhga/100 WBC (Bld)20.0 %Esjffs58.0-50.0Remisol Heme Comment on above:Performed By: #### [id number] #### [facility] [address] [place] [address] 77463MHQ (RBC) [Entitic mass]31.3 ghIfgdte86.0-34.0Remisol Heme Comment on above:Performed By: #### [id number] #### [facility] [address], [place] [address]XGOI (RBC) [Mass/Vol]33.4 g/gBFidstg39.4-36.0Remisol Heme Comment on above:Performed By: #### [id number] #### [facility] [address] [place] [address]AAH (RBC) [Entitic vol]93.5 kUKbybwu53.0-100.0Remisol Heme Comment on above:Performed By: #### [id number] #### [facility] [address] [place] [address] 74[address]Mhnmtrxid (Bld) [#/Vol]0.6 E9/LNormal0.2-1.0Remisol HemeComment on above:Performed By: #### [id number] #### [facility] [address] [place] [address] 87[address]Eaynhlxnix/100 WBC (Bld)3.0 %High0.0-0.0Remisol HemeComment on above:Performed By: #### [id number] #### [facility] [address] [place] [address] 02709Ufacangqfjd (Bld) [#/Vol]7.4 E9/LInvalid Interpretation Code Remisol HemeComment on above:Performed By: #### [id number] #### [facility] [address] [place] [address]Jozgyeqk173.0 E9/HYzsqle135.0-500.0Remisol HemeComment on above:Performed By: #### [id number] #### [facility] [address], [place] [address]Obxfrwqi mean volume (Bld) [Entitic vol]9.2 fLNormal6.4-10.8 Remisol HemeComment on above:Performed By: #### [id number] #### [facility] [address] [place] [address]IEM (Bld) [#/Vol]4.2 E12/LLow4.3-5.9Remisol HemeComment on above:Performed By: #### [id number] #### [facility] [address], [place] [address]Qaddxfult neutrophils/100 WBC (Bld)62.0 %Egccny26.0-75.0Remisol HemeComment on above:Performed By: #### [id number] #### [facility] [address], [place] [address]Elhwsyk lymphocytes/100 WBC (Bld)1.0 %High0.0-0.0Remisol Heme Comment on above:Performed By: #### [id number] #### [facility] [address] [place] [address]KXQ corrected for nucl RBC Auto (Bld) [#/Vol]10.5 E9/LNormal 4.0-11.0Remisol HemeComment on above:Performed By: #### [id number] #### [facility] [address] [place] [address]NQQ w/ Auto Diffon 85-26-4497DJJ size Nom (Bld)NORMALInvalid Interpretation CodeFisher [facility] Orthopaedic InstituteComment on above:Performed By: #### [id number] #### [facility] [address], [place] [address]CDOZPOCDBTpjshxd By: SYSTEM SYSTEM on 07-03-2024 Albumin/Globulin [Mass ratio]1.5 {ratio}Normal1.1 - 2.2Remisol ChemALP [Catalytic activity/Vol]70 [iU]/vOsdhnn39 - 98 Int._Unit/LRemisol ChemALT No additional P-5'-P [Catalytic activity/Vol]24 [iU]/dNormal6 - 46 Int._Unit/L Remisol ChemAST [Catalytic activity/Vol]20 [iU]/dNormal5 - 43 Int._Unit/LRemisol ChemUrea nitrogen/Creatinine [Mass ratio]20 mg/vmLpxmrg07 - 20Remisol ChemCMP Ordered By: SYSTEM SYSTEM on 57-77-0692Yicxbla [Mass/Vol]4.0 g/dLNormal3.3-5.0 Remisol ChemComment on above:Performed By: #### [id number] #### [facility] [address] [place], [place] [address]Zolmv gap [Moles/Vol]10 mmol/LNormal6-16Remisol ChemComment on above:Performed By: #### [id number] #### [facility] [address], [place] [address]Swqrwznzq [Mass/Vol]0.3 mg/dLNormal0.0-1.1Remisol ChemComment on above:Performed By: #### [id number] #### [facility] [address], [place] [address]Mtmofas [Mass/Vol]9.1 mg/dLNormal8.9-11.1Remisol ChemComment on above:Performed By: #### [id number] #### [facility] [address], [place] [address]Ankmgwtp [Moles/Vol]107 mmol/UKugaqh417-232Pgoavyq ChemComment on above:Performed By: #### [id number] #### [facility] [address] [place] [address]16[address]WI3 [Moles/Vol]28 mmol/ONemojs39-08Jujnjcg ChemComment on above:Performed By: #### [id number] #### [facility] [address] [place], [place] [address]Vuxlyomgvh [Mass/Vol]1.0 mg/dLNormal0.5-1.3Remisol ChemComment on above:Performed By: #### [id number] #### [facility] [address] [place], [place] [address]Adhjjaiy (S) [Mass/Vol]2.7 g/dLNormal1.4-4.0Remisol ChemComment on above:Performed By: #### [id number] #### [facility] [address], [place] [address]Cmelkrr [Mass/Vol]138 mg/kTIfsgki85-870Qdoznwe ChemComment on above:Performed By: #### [id number] #### [facility] [address], [place] [address]Wtbqpfrzr [Moles/Vol]4.5 mmol/LNormal3.5-5.3Remisol ChemComment on above:Performed By: #### [id number] #### [place] [facility] [address], [place] [address]Ptbzgfc [Mass/Vol]6.7 g/dLNormal6.0-7.8Remisol ChemComment on above:Performed By: #### [id number] #### [place] [facility] [address] [place], [place] [address]Umjvtu [Moles/Vol]140 mmol/IDkrkqh945-473Pohhprh ChemComment on above:Performed By: #### [id number] #### [facility] [address], [place] [address]Camr nitrogen [Mass/Vol]20 mg/dLNormal5-21Remisol ChemComment on above:Performed By: #### [id number] #### [facility] [address], [place] [address]HTGms 61-54-2694Eonzywn/Globulin (S) [Mass conc ratio]1.5Normal 1.1-2.2Fisher [facility] Orthopaedic InstituteComment on above:Performed By: #### [id number] #### [place] [facility] [address], [place] [address]GJW [Catalytic activity/Vol]70 Int._Unit/CWftzbd42-90AzkvifMercy Health – The Jewish HospitalComment on above:Performed By: #### [id number] #### [facility] [address], [place] [address]JYK No additional P-5'-P [Catalytic activity/Vol]24 Int._Unit/L Normal6-46[facility] – The Jewish HospitalComment on above:Performed By: #### [id number] #### [place] [facility] [address], [place] [address]UUG [Catalytic activity/Vol]20 Int._Unit/LNormal5-43Fisher [facility] Orthopaedic InstituteComment on above:Performed By: #### [id number] #### [facility] [address], [place] [address]Aotl nitrogen/Creatinine [Mass ratio]20 No EovqlBnvyzo50-43 [facility] – The Jewish HospitalComment on above:Performed By: #### [id number] #### [facility] [address], [place] [address]OJDDRORFUTEfqyirh By: SYSTEM SYSTEM on 20-35-0222Xqceiyrwj/100 WBC (Bld)0.0 %Normal0.0 - 2.0 %Remisol HemeMonocytes/100 WBC (Bld)6.0 %Normal4.0 - 14.0 %Remisol HemeRBC size Nom (Bld)NORMAL *NA* (07/03/24 12:00 PM)Invalid Interpretation CodeRemisol HemeMagnesiumOrdered By: SYSTEM SYSTEM on 33-80-5051Flgcgcqiy [Mass/Vol]2.0 mg/dLNormal1.3-2.4Remisol ChemComment on above:Performed By: #### [id number] #### [facility] [address], [place] [address]xXIHYgjaxcf By: SYSTEM SYSTEM on 34-67-7233aETI07 mL/min/1.73 y4Llkzih>=59Remisol ChemComment on above:Performed By: #### [id number] #### [facility] [address], [place] [address]qb [phone] Dr Arellano pt was called to schedule cardiac clearance appt. Pt stated he would rather be seen in [place], so I advised pt to call and schedule with them.NormalUnMarion HospitalNo Panel Informationon 06-23-2024 [employer] Audio indicated a mild to severe sensorineural hearing loss 250-8000 Hz, bilaterally. NOMS HealthcareNOMN HealthcareBasic Metabolic Panelon 79-63-9622Kypya gap [Moles/Vol]8.5 mmol/LNormal6.0-15.0The [facility]lands Physician GroupComment on above:Performed By: #### CBC, BMP #### [facility] [address] [place] [address] USAPerformed By: #### CMP, CBC #### [facility] [address] [place] [address] USACalcium [Mass/Vol]9.0 mg/dLNormal8.6-10.3The [facility] Physician GroupComment on above:Result Comment: PERFORMED BY: [place] [address] PATHOLOGIST PERSONAL CARE AID HEBER SHANNON M.D.Performed By: #### CBC, BMP #### [place] [address] USAPerformed By: #### CMP, CBC #### [place] [address] USAChloride [Moles/Vol]110 mmol/POkqf27-019Fyw [facility] Physician GroupComment on above:Performed By: #### CBC, BMP #### [facility] [address] [place] [address] USAPerformed By: #### CMP, CBC #### [place] [address] USACO2 [Moles/Vol]24.5 mmol/GOrqeak93.0-31.0The [facility]ly [facility] Physician GroupComment on above:Performed By: #### CBC, BMP #### [facility] [address] [place] [address] USAPerformed By: #### CMP, CBC #### [facility] [address] [place] [address] USACreatinine [Mass/Vol]0.97 mg/dLNormal0.70-1.30The Formerly [facility] Physician GroupComment on above:Performed By: #### CBC, BMP #### [facility] [address] [place] [address] USAPerformed By: #### CMP, CBC #### [facility] [address] [place] [address] USAGFR/1.73 sq M.predicted MDRD (S/P/Bld) [Vol rate/Area] mL/min/{1.73_m2}NormalThe Formerly [facility] Physician GroupComment on above:Performed By: #### CBC, BMP #### [place] [address] USAPerformed By: #### CMP, CBC #### [place] [address] USAGlucose [Mass/Vol]118 mg/lQSjzy48-167Wpl Formerly [facility] Physician GroupComment on above:Result Comment: Random Glucose Reference Range is dependent on time and content of last meal. Glucose of more than 200 mg/dL in a nonstressed, ambulatory subject supports the diagnosis of Diabetes Mellitus. ADA recommended reference rangePerformed By: #### CBC, BMP #### [place] [address] USAPerformed By: #### CMP, CBC #### [place] [address] USAPotassium [Moles/Vol]4.0 mmol/LNormal3.5-5.1The Formerly [facility] Physician GroupComment on above:Performed By: #### CBC, BMP #### [place] [address] USAPerformed By: #### CMP, CBC #### [place] [address] USASodium [Moles/Vol]139 mmol/YRgpcyf348-567Qps Formerly [facility] Physician GroupComment on above:Performed By: #### CBC, BMP #### [place] [address] USAPerformed By: #### CMP, CBC #### [facility] [address] [place] [address] USAUrea nitrogen [Mass/Vol]19 mg/dLNormal7-25The Formerly [facility] Physician GroupComment on above:Performed By: #### CBC, BMP #### [place] [address] USAPerformed By: #### CMP, CBC #### [facility] [address] [place] [address] [facility]ITALBatrist[facility] metabolic 1998 panelon 76-58-7904Pwmip gap [Moles/Vol]8.5 mmol/L6.0 - 15.0 meq/LNOMS HealthcareCalcium [Mass/Vol]9 mg/dL8.6 - 10.3 mg/dLNOMN HealthcareChloride [Moles/Vol]110 mmol/LHigh98 - 107 mmol/L NOMS HealthcareCO2 [Moles/Vol]24.5 mmol/L21.0 - 31.0 mmol/LNOMS Healthcare Creatinine (U) [Mass/Vol]0.97 mg/dL0.70 - 1.30 mg/dLNOMN HealthcareESTIMATED GFR mL/MinNOMN HealthcareGlucose [Mass/Vol]118 mg/yRNtox53 - 100 mg/dLNOMN HealthcareComment on above:Random Glucose Reference Range is dependent on time and content of last meal. Glucose of more than 200 mg/dL in a nonstressed, ambulatory subject supports the diagnosis of Diabetes Mellitus. ADA recommended reference range Interpretation and review of laboratory resultsAbnormalNOMS HealthcarePotassium [Moles/Vol]4 mmol/L3.5 - 5.1 mmol/LNOMS HealthcareSodium [Moles/Vol]139 mmol/L 136 - 145 mmol/LNOMS HealthcareUrea nitrogen [Mass/Vol]19 mg/dL7 - 25 mg/dLNOMN HealthcareNOMN HealthcareBasophils Auto (Bld) [#/Vol]Ordered By: Matteo Melo on 98-25-1487Arzjrchpn (Bld) [#/Vol]Automated basophil count0.0-0.2FHarrison Community HospitalBasophils/100 WBC Auto (Bld)Ordered By: Matteo Melo on 11-33-6228Gxckasrcg/100 WBC (Bld)Automated basophil %.[facility] CenterCB W Auto Differential panel (Bld)on 97-09-9694Nrqmuwueg (Bld) [#/Vol] 0.1 10*3/uL0.0 - 0.2 10*3/uLNOMS HealthcareBasophils/100 WBC Manual cnt (Syn fld)0.7 %.NOMS HealthcareEosinophils (Bld) [#/Vol]0.4 10*3/uL0.0 - 0.45 10*3/uL NOM HealthcareEosinophils/100 WBC Manual cnt (Syn fld)5 %.[facility] Erythrocyte distribution width (RBC) [Ratio]13.4 %12.0 - 14.8 %[facility] Hematocrit (Bld) [Volume fraction]40.7 %38.8 - 50.0 %[facility] LawnHemoglobin (Bld) [Mass/Vol]13.7 g/dL13.0 - 17.0 g/dLCASTLEVIEW HOSPITAL HealthcareLymphocytes (Bld) [#/Vol]2.5 10*3/uL1.00 - 4.8 10*3/uLNOMS HealthcareLymphocytes/100 WBC Manual cnt (Syn fld)30.2 %.[facility] LawnMCH (RBC) [Entitic mass]31 pg27.5 - 35.2 pg [facility]SmithvilleHC (RBC) [Mass/Vol]33.7 g/dL32.5 - 35.6 g/dLCox Walnut LawnMCV (RBC) [Entitic vol]92 fL83.5 - 101 fLCASTLEVIEW HOSPITAL HealthcareMonocytes (Bld) [#/Vol]0.7 10*3/uL0.0 - 0.8 10*3/uLCASTLEVIEW HOSPITAL HealthcareMonocytes+Macrophages/100 WBC Manual cnt (Syn fld)8.8 %.[facility] HealthcareNeutrophils (Bld) [#/Vol]4.6 10*3/uL1.8 - 7.7 10*3/uLNOMS HealthcareNeutrophils/100 WBC Manual cnt (Syn fld)55.3 %.[facility] HealthcareNRBC0.2 /100{WBC}0 - 0.5 /100{WBC}[facility] HealthcarePlatelet mean volume (Bld) [Entitic vol]8.9 fL6.6 - 10.1 fLCASTLEVIEW HOSPITAL HealthcarePlatelets (Bld) [#/Vol]234 10*3/uL150 - 450 10*3/uLNOMN HealthcareRBC LM.HPF (Urine sed) [#/Area]4.43 10*6/uL3.90 - 5.60 10*6/uLNOMS HealthcareWBC (Bld) [#/Vol]8.4 10*3/uL4.1 - 10.5 10*3/uLNOMS HealthcareWBC LM.HPF (Urine sed) [#/Area]8.4 10*3/uL4.1 - 10.5 10*3/uLNOMS HealthcareNOMS HealthcareCalcium [Mass/volume] in Serum or Plasma Ordered By: Matteo Melo on 03-00-5574Xlwhkfe [Mass/Vol]Calcium [Mass/volume] in Serum or Plasma8.6-10.3FHarrison Community HospitalCarbon dioxide, total [Moles/volume] in Serum or PlasmaOrdered By: Matteo Melo on 41-28-3457CI9 [Moles/Vol]Carbon dioxide, total [Moles/volume] in Serum or Coqdjf39.0-31.0 [facility] CenterChloride [Moles/volume] in Serum or Plasma Ordered By: Matteo Melo on 13-64-8126Ldokmmmj [Moles/Vol]Chloride [Moles/volume] in Serum or DdugenYwef99-329UyjpkyjfiAdams County Regional Medical Center Complete Blood Count Auto Diffon 11-13-0893Hudwhgynm (Bld) [#/Vol]0.1 10*3/uL Normal0.0-0.2The Formerly [facility] Physician GroupComment on above:Result Comment: PERFORMED BY: [place] [address] PATHOLOGIST PERSONAL CARE AID HEBER SHANNON M.D.Performed By: #### CBC, BMP #### [facility] [address] [place] [address] USAPerformed By: #### CMP, CBC #### [facility] [address] [place] [address] USABasophils/100 WBC (Bld)0.7 %Normal.The Formerly [facility] Physician GroupComment on above:Performed By: #### CBC, BMP #### [facility] [address] [place] [address] USAPerformed By: #### CMP, CBC #### [place] [address] USAEosinophils (Bld) [#/Vol]0.4 10*3/uLNormal0.0-0.45The Formerly [facility] Physician GroupComment on above:Performed By: #### CBC, BMP #### [facility] [address] [place] [address] USAPerformed By: #### CMP, CBC #### [place] [address] USAEosinophils/100 WBC (Bld)5.0 %Normal.The Formerly [facility] Physician GroupComment on above:Performed By: #### CBC, BMP #### [place] [address] USAPerformed By: #### CMP, CBC #### [place] [address] USAErythrocyte distribution width (RBC) [Ratio]13.4 %Normal 12.0-14.8The Formerly [facility] Physician GroupComment on above:Performed By: #### CBC, BMP #### [place] [address] USAPerformed By: #### CMP, CBC #### [place] [address] USAHematocrit (Bld) [Volume fraction]40.7 %Wcfrhs56.8-50.0The Formerly [facility] Physician GroupComment on above:Performed By: #### CBC, BMP #### [place] [address] USAPerformed By: #### CMP, CBC #### [place] [address] USAHemoglobin (Bld) [Mass/Vol]13.7 g/uGRvmgii74.0-17.0The Formerly [facility] Physician GroupComment on above:Performed By: #### CBC, BMP #### [place] [address] USAPerformed By: #### CMP, CBC #### [place] [address] USALymphocytes (Bld) [#/Vol]2.5 10*3/uLNormal1.00-4.8The Formerly [facility] Physician GroupComment on above:Performed By: #### CBC, BMP #### [place] [address] USAPerformed By: #### CMP, CBC #### [place] [address] USALymphocytes/100 WBC (Bld)30.2 %Normal.The Formerly [facility] Physician GroupComment on above:Performed By: #### CBC, BMP #### [place] [address] USAPerformed By: #### CMP, CBC #### [place] [address] USAMCH (RBC) [Entitic mass]31.0 xvTtfuna88.5-35.2The Formerly [facility] Physician GroupComment on above:Performed By: #### CBC, BMP #### [place] [address] USAPerformed By: #### CMP, CBC #### [place] [address] USAMCV (RBC) [Entitic vol]92.0 tVSqgbul81.5-101The Formerly [facility] Physician GroupComment on above:Performed By: #### CBC, BMP #### [place] [address] USAPerformed By: #### CMP, CBC #### [place] [address] USAMean Corpuscular HGB Conc33.7 g/dHCaqpqz44.5-35.6The Formerly [facility] Physician GroupComment on above:Performed By: #### CBC, BMP #### [facility] [address] [place] [address] USAPerformed By: #### CMP, CBC #### [place] [address] USAMonocytes (Bld) [#/Vol]0.7 10*3/uLNormal0.0-0.8The Formerly [facility] Physician GroupComment on above:Performed By: #### CBC, BMP #### [facility] [address] [place] [address] USAPerformed By: #### CMP, CBC #### [facility] [address] [place] [address] USAMonocytes/100 WBC (Bld)8.8 %Normal.The Formerly [facility] Physician GroupComment on above:Performed By: #### CBC, BMP #### [facility] [address] [place] [address] USAPerformed By: #### CMP, CBC #### [facility] [address] [place] [address] USANeutrophils (Bld) [#/Vol]4.6 10*3/uLNormal1.8-7.7The Formerly [facility] Physician GroupComment on above:Performed By: #### CBC, BMP #### [place] [address] USAPerformed By: #### CMP, CBC #### [place] [address] USANeutrophils/100 WBC (Bld)55.3 %Normal.The Formerly [facility] Physician GroupComment on above:Performed By: #### CBC, BMP #### [facility] [address] [place] [address] USAPerformed By: #### CMP, CBC #### [facility] [address] [place] [address] USANRBC%0.2 /100{WBC}Normal0-0.5The [facility] Comment on above:Performed By: #### CBC, BMP #### [place] [address] USAPerformed By: #### CMP, CBC #### [facility] [address] [place] [address] USAPlatelet mean volume (Bld) [Entitic vol]8.9 fLNormal 6.6-10.1The Formerly [facility] Physician GroupComment on above:Performed By: #### CBC, BMP #### [facility] [address] [place] [address] USAPerformed By: #### CMP, CBC #### [facility] [address] [place] [address] USAPlatelets (Bld) [#/Vol]234 10*3/qFRlxsug777-818Ghs Formerly [facility] Physician GroupComment on above:Performed By: #### CBC, BMP #### [facility] [address] [place] [address] USAPerformed By: #### CMP, CBC #### [facility] [address] [place] [address] USARBC (Bld) [#/Vol]4.43 10*6/uLNormal3.90-5.60The Formerly [facility] Physician GroupComment on above:Performed By: #### CBC, BMP #### [facility] [address] [place] [address] USAPerformed By: #### CMP, CBC #### [facility] [address] [place] [address] USAWBC (Bld) [#/Vol]8.4 10*3/uLNormal4.1-10.5The Formerly [facility] Physician GroupComment on above:Performed By: #### CBC, BMP #### [facility] [address] [place] [address] USAPerformed By: #### CMP, CBC #### [facility] [address] [place] [address] USACreatinine [Mass/volume] in Serum or PlasmaOrdered By: Matteo Melo on 67-56-9913Bhyqqpwdut [Mass/Vol]Creatinine [Mass/volume] in Serum or Plasma0.70-1.30[facility] CenterECG 12 lead ECGon 66-27-6998ZMJ 12 lead ECGSCC[facility] [place] [address] [place] [address] Electrocardiograph Report Signed Patient: Jeremie Bennett MR#: [id number] 812 : 1940 Acct:[id number] Age/Sex: 83 / M ADM Date: 06/22/24 Loc: Room: Type: [facility] Attending Dr: Matteo Melo MD Ordering [...] Signed By Amilcar Santiago MD 0 06/23/[address] [place] [address] Physician GroupECG 12 lead ECGSCCI [place] [address] Electrocardiograph Report Signed Patient: Jeremie Bennett MR#: [id number] 669 : 1940 Acct:[id number] Age/Sex: 83 / M ADM Date: 06/22/24 Loc: Room: Type: [facility] Attending Dr: Matteo Melo MD Ordering [...] Signed By Amilcar Santiago MD 0 06/23/[address] [place] [address] Physician GroupEosinophils Auto (Bld) [#/Vol] Ordered By: Matteo Melo on 37-38-8839Dtqgqjrtqnd (Bld) [#/Vol]Automated eosinophil count0.0-0.45[facility] CenterEosinophils/100 WBC Auto (Bld)Ordered By: Matteo Melo on 59-34-4816Rkzllmxdfyi/100 WBC (Bld) Automated eosinophil %.[facility] CenterErythrocyte distribution width Auto (RBC) [Ratio]Ordered By: Matteo Melo on 20-68-2801Fhjlduayrqz distribution width (RBC) [Ratio]Erythrocyte distribution width [Ratio] by Automated count12.0-14.8[facility] CenterGlucose [Mass/volume] in Serum or PlasmaOrdered By: Matteo Melo on 38-39-1371Nytgisy [Mass/Vol] Glucose [Mass/volume] in Serum or QpnmobPotm57-360FdfvmexlcAdams County Regional Medical CenterComment on above:ADA recommended reference rangeRandom Glucose Reference Range is dependent on time and content of last meal. Glucose of more than 200 mg/dL in a nonstressed, ambulatory subject supports the diagnosisof Diabetes Mellitus.Hematocrit Auto (Bld) [Volume fraction]Ordered By: Matteo Melo on 18-55-1161Sjijebiqaj (Bld) [Volume fraction]Hematocrit [Volume Fraction] of Blood by Automated count38.8-50.0[facility] CenterHemoglobin [Mass/volume] in BloodOrdered By: Matteo Melo on 68-42-7914Ijmhoywdtt (Bld) [Mass/Vol]Hemoglobin [Mass/volume] in Blood13.0-17.0[facility] CenterLeukocytes [#/volume] corrected for nucleated erythrocytes in Blood by Automated counOrdered By: Matteo Melo on 24-16-2749HKO corrected for nucl RBC Auto (Bld) [#/Vol]Leukocytes [#/volume] corrected for nucleated erythrocytes in Blood by Automated coun4.1-10.5FHarrison Community HospitalLymphocytes Auto (Bld) [#/Vol]Ordered By: Matteo Melo on 39-38-8232Nopltamgsfd (Bld) [#/Vol] Lymphocytes [#/volume] in Blood by Automated count1.00-4.8[facility] CenterLymphocytes/100 WBC Auto (Bld)Ordered By: Matteo Melo on 05-58-1695Hbhfpuwyiev/100 WBC (Bld)Lymphocytes/100 leukocytes in Blood by Automated count.[facility] Medical CenterMCH Auto (RBC) [Entitic mass] Ordered By: Matteo Melo on 58-03-2850JZY (RBC) [Entitic mass]MCH [Entitic mass] by Automated count27.5-35.2FHarrison Community HospitalMCHC Auto (RBC) [Mass/Vol]Ordered By: Matteo Melo on 40-73-6500RBDA (RBC) [Mass/Vol]MCHC [Mass/volume] by Automated count32.5-35.6FHarrison Community HospitalMCV Auto (RBC) [Entitic vol]Ordered By: Matteo Melo on 28-58-0364QHP (RBC) [Entitic vol]MCV [Entitic volume] by Automated count83.5-101[facility] CenterMonocytes Auto (Bld) [#/Vol]Ordered By: Matteo Melo on 40-91-4733Nzxkapcux (Bld) [#/Vol]Automated blood monocyte count0.0-0.8[facility] CenterMonocytes/100 WBC Auto (Bld)Ordered By: Mateto Melo on 85-63-7255Ogrblzbnp/100 WBC (Bld)Automated monocyte %.[facility] Medical CenterNeutrophils Auto (Bld) [#/Vol]Ordered By: Matteo Melo on 06-22-2024 Neutrophils (Bld) [#/Vol]Neutrophils [#/volume] in Blood by Automated count 1.8-7.7FHarrison Community HospitalNeutrophils/100 WBC Auto (Bld)Ordered By: Matteo Melo on 03-58-3118Popvbvnzsxh/100 WBC (Bld)Automated neutrophil %. [facility] CenterNo Panel InformationOrdered By: Matteo Melo on 67-20-1151Jqaitkayd GFR (CKD-EPI)> 60.0 mL/MinAdams County Regional Medical CenterPharmacy Creatinine Clearance (ChemN/[facility] Nucleated erythrocytes [Presence] in Blood by Automated countOrdered By: Matteo Melo on 69-64-6273Yeuojcsfo RBC Auto Ql (Bld)Nucleated erythrocytes [Presence] in Blood by Automated count0-0.5FHarrison Community HospitalPlatelet mean volume Auto (Bld) [Entitic vol]Ordered By: Matteo Melo on 23-95-0799Iaqitpst mean volume (Bld) [Entitic vol]Platelet mean volume [Entitic volume] in Blood by Automated count6.6-10.1FHarrison Community HospitalPlatelets Auto (Bld) [#/Vol]Ordered By: Matteo Melo on 70-74-3436Lrnhtlhzk (Bld) [#/Vol]Platelets [#/volume] in Blood by Automated oalvz245-140NrajhfwnrAdams County Regional Medical Center Potassium [Moles/volume] in Serum or PlasmaOrdered By: Matteo Melo on 49-64-3237Akuswdkct [Moles/Vol]Potassium [Moles/volume] in Serum or Plasma 3.5-5.1FHarrison Community HospitalRBC Auto (Bld) [#/Vol]Ordered By: Matteo Melo on 20-94-9474OTT (Bld) [#/Vol]Erythrocytes [#/volume] in Blood by Automated count3.90-5.60The Jewish Hospitalerum or plasma anion gap determinationOrdered By: Matteo Melo on 37-93-9167Ggqrc gap [Moles/Vol] Serum or plasma anion gap determination6.0-15.0[facility] Sodium [Moles/volume] in Serum or PlasmaOrdered By: Matteo Melo on 06-22-2024 Sodium [Moles/Vol]Sodium [Moles/volume] in Serum or Juvjaj310-783GlfdefauoAdams County Regional Medical CenterUrea nitrogen [Mass/volume] in Serum or PlasmaOrdered By: Matteo Melo on 55-25-3553Mmhz nitrogen [Mass/Vol]Urea nitrogen [Mass/volume] in Serum or Plasma7-25[facility] CenterWBC Auto (Bld) [#/Vol] Ordered By: Matteo Melo on 33-50-8455LQQ (Bld) [#/Vol]Leukocytes [#/volume] in Blood by Automated count4.1-10.5FUniversity Hospitals St. John Medical Centerurgical pathology studyon 24-65-8517Fhurtecl pathology studyPathology report.total SEE COMMENT Surgical Pathology Case: [id number] Authorizing Provider: Mary Schneider MD Collected: 06/05/2024 1609 Ordering Location: [facility] Received: 06/05/2024 [facility] Pathologist: Alessandro Arzate DDS Specimen: LYMPH NODE BIOPSY Path report.final diagnosis SEE COMMENT Lymph node, core biopsy: - Metastatic non-keratinizing squamous cell carcinoma, see note. 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 P16 by immunohistochemistry: Equivocal. 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 Reference Range (p16): Negative: <50% strong nuclear [...] is submitted in toto in one cassette. [facility] AP ASR DISCLAIMER One or more of the reagents used to perform assays on this specimen MAY have contained components considered to be analyte specific reagents (ASR's). ASR's have not been cleared or approved by the U.S. Food and Drug Administration. These assays were developed and their performance characteristics determined by the Department of Pathology at [facility]. The FDA does not [...] appropriate positive and negative controls which stained appropriately.[facility] HospitalUS GUIDED BIOPSY LYMPH NODE SUPERFICIALon 67-77-1543MK GUIDED BIOPSY LYMPH NODE SUPERFICIALInterpreted By: Gaby Perez and Guirguis James STUDY: US GUIDED BIOPSY LYMPH NODE SUPERFICIAL; 06/05/2024 1:53 pm INDICATION: Signs/Symptoms:left neck enlarged lymph node seen on PET. COMPARISON: PET-CT dated 03/27/2024 ACCESSION NUMBER(S): [id number] ORDERING CLINICIAN: MARY SCHNEIDER TECHNIQUE: INTERVENTIONALIST(S): MD [...] intravenous fentanyl 50mcg and versed 0.5mg from 8963-6166. The physician was assisted by an independent [...] findings as stated. Performed and dictated at [facility]. MACRO: None. Signed by: Gaby Perez 06/05/2024 9:02 PM Dictation workstation: [id number] Health Montpelier HospitalUS guidance for percutaneous biopsy of Lymph nodeon [...] findings as stated. Performed and dictated at [facility]. MACRO: None. Signed by: Gaby Perez 06/05/2024 9:02 PM Dictation workstation: [id number] By: Gaby Perez and Guirguis James STUDY: US GUIDED BIOPSY LYMPH NODE SUPERFICIAL; 06/05/2024 1:53 pm INDICATION: Signs/Symptoms:left neck enlarged lymph node seen on PET. COMPARISON: PET-CT dated 03/27/2024 ACCESSION NUMBER(S): [id number] ORDERING CLINICIAN: MARY SCHNEIDER TECHNIQUE: INTERVENTIONALIST(S): MD [...] intravenous fentanyl 50mcg and versed 0.5mg from 8099-1366. The physician was assisted by an independent [...] PET. COMPARISON: PET-CT dated 03/27/2024 ACCESSION NUMBER(S): [id number] ORDERING CLINICIAN: MARY SCHNEIDER TECHNIQUE: INTERVENTIONALIST(S): MD [...] intravenous fentanyl 50mcg and versed 0.5mg from 7701-9437. The physician was assisted by an independent [...] findings as stated. Performed and dictated at [facility]. MACRO: None. Signed by: Gaby Perez 06/05/2024 9:02 PM Dictation workstation: [id number] [facility] Work Phone: Radiology Study observation (narrative)[facility] Work Phone: US guidance for percutaneous biopsy of Lymph node Ordered By: Gaby Perez on 66-23-4637OwlikktcfxOhioHealth Dublin Methodist Hospital Work Phone: nm TRANSFER OF OUTSIDE FILMSon 61-62-5656KQ TRANSFER OF OUTSIDE FILMSOutside images for comparison or treatment purposes, not interpreted by Radiologists.NormalUnOur Lady of Mercy Hospital - Andersontudy Interpretation of outside studyon 95-26-6244Ppvgmxr images for comparison or treatment purposes, not interpreted by Radiologists.IMAGINGBlood type and Indirect antibody screen panel (Bld)on 13-74-9499DVL group Nom (Bld)AUnOhioHealth Dublin Methodist HospitalBlood group antibody screen QlNegativeUnCleveland Clinic Mercy Hospital Ag Ql (Bld)Positive White HospitalUnOhioHealth Dublin Methodist HospitalABO group Nom (Bld)ANoClinton Memorial HospitalComment on above:Order Comment: Patient admitted for surgery associated with significant blood loss OR per blood bank request.Performed By: #### [id number] #### TING Knox ([id number]) [facility] ([facility]) [address] [place], [place] [address]Mjfps group antibody screen QlNegativeParkview Health Montpelier HospitalComment on above:Order Comment: Patient admitted for surgery associated with significant blood loss OR per blood bank request.Performed By: #### [id number] #### TING Knox ([id number]) [facility] ([facility]) [address] [place], [place] [address]N Ag Ql (Bld)PositiveParkview Health Montpelier HospitalComment on above:Order Comment: Patient admitted for surgery associated with significant blood loss OR per blood bank request.Performed By: #### 00635-9 #### TING Knox ([id number]) [facility] ([facility]) [address] [place], [place] [address]Buwmhin Test strip manual (d) [Mass/Vol]on 05-11-2024 Glucose [Mass/Vol]128 mg/mXMyri20 - 99 mg/dLUnOhioHealth Dublin Methodist Hospital Interpretation and review of laboratory resultsAbLouis Stokes Cleveland VA Medical CenterGlucose [Mass/Vol]128 mg/wNJcnx48-91 [facility] CenterComment on above:Performed By: #### 2341-6 #### TING Knox ([id number]) [facility] ([facility]) [address] [place], [place] [address]Gjmdvpu [Mass/Vol]120 mg/iLAkya33 - 99 mg/dLUnOhioHealth Dublin Methodist HospitalComment on above:RN NOTIFIEDInterpretation and review of laboratory resultsAbLouis Stokes Cleveland VA Medical CenterGlucose [Mass/Vol]120 mg/kGUqkb40-74AmjzmumbmdGreene Memorial HospitalComment on above:Result Comment: RN NOTIFIEDPerformed By: #### [id number] #### TING Knox ([id number]) [facility] ([facility]) [address] [place], [place] [address]Kzxwfvxb pathology studyon 47-60-8788Ogoevlgp pathology study Pathology report.total SEE COMMENT Surgical Pathology Case: [id number] Authorizing Provider: Mary Schneider MD Collected: 05/11/202402 Ordering Location: [facility] Received: 05/11/2024 [address] [address] [place], [place] [address]er OR Pathologist: Asuncion Quintanilla MD PhD Intraop: [...] invasion. Intraoperative Consult Pathologist(s): Carmel Patel MD erp consultant: Dr. Alessandro Arzate. DANIEL AP ASR DISCLAIMER One or more of the reagents used to perform assays on this specimen MAY have contained components considered to be analyte specific reagents (ASR's). ASR's have not been cleared or approved by the U.S. Food and Drug Administration. These assays were developed and their performance characteristics determined by the Department of Pathology at [facility]. 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]VERAB/VERIFY ABORHon 64-87-1006YZS group Nom (Bld)ANormalUSuburban Community Hospital & Brentwood HospitalComment on above:Performed By: #### VERAB #### TING Knox (22300) [facility] ([facility] [place] [place] [address] [place], [place] [address]W Ag Ql (Bld)PositiveNormalUniUniversity Hospitals Parma Medical CenterComment on above:Performed By: #### VERAB #### TING Knox (35510) [facility] ([facility]) [address] [place], [place] [address]Wjdhwv ABO/Rh Group Test (VERAB)on 24-56-8211EHX group Nom (Bld)AUnCleveland Clinic Mercy Hospital Ag Ql (Bld)PositiveUnOhioHealth Dublin Methodist HospitalUnOhioHealth Dublin Methodist HospitalOffice Visiton 02-43-8076Jzwzbm-up [id number] Jeremie Bennett 1940 M Date Provider Department Center 04/25/2024 STACEY ERNANDEZ [facility] Family History Problem Relation Age of Onset Coronary artery disease Mother Kidney disease Mother Heart failure Mother Family Status - Relation Status Age at Mother Level of Service:[address] [place] OFFICE/OUTPATIENT NEW MODERATE MDM 45 MINUTESNormal [facility] HealthAmbulatory Visit Summaryon 04-17-2024 Ambulatory Visit SummaryAmbulatory Visit Summary JEERMIE BENNETT :1940 Visit Date:04/17/2024 Ambulatory Visit Instructions Your Diagnosis Type 2 diabetes mellitus with hypercholesterolemia BMI 30.0-30.9,adult Exogenous obesity Former smoker Chronic GERD Coronary artery disease involving elim 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 Hypercholesterolemia Primary hypertension [...] Tab) fluticasone nasal (fluticasone Nasal 0.05 mg/inh [place]) furosemide (furosemide 20 mg Tab) irbesartan (irbesartan [...] Appointments Wednesday 2:30 PM EDT With: Where: [address] [address]- Wednesday 3:30 PM EDT With: Allison CASON, Demetrius Rosa Where: [address] [address]- Medications What How Much When [...] fluticasone nasal (fluticasone Nasal 0.05 mg/ inh [place]) See instructions USE 1 SPRAY IN BOTH [...] By Mouth Every day Unchanged Misc Prescription ([facility] Prescription) See instructions one touch ultra [...] you are currently receivin (more content not included)...NormalMercy Health – The Jewish HospitalCBC w/ Auto Diffon 04-17-2024 Basophils/100 WBC (Bld)0.8 %Normal0.0-2.0[facility] HospitalComment on above:Performed By: #### [id number] #### [facility] [address] [place] [address]Wdypsfryy/Leukocytes Auto (Bld) [Pure # fraction]0.1 E9/LNormal 0.0-0.2FWexner Medical CenterComment on above:Performed By: #### [id number] #### [facility] [address] [place] [address] 317[address]Hvoypaozywo (Bld) [#/Vol]0.4 E9/LNormal0.0-0.5FWexner Medical CenterComment on above:Performed By: #### [id number] #### [facility] [address] [place] [address]Yfoduvnpodn/100 WBC (Bld)4.6 %Normal0.0-8.0[facility] The Jewish HospitalComment on above:Performed By: #### [id number] #### [facility] [address] [place] [address] 63[address]Wtjdmmzndnq distribution width (RBC) [Ratio]14.0 %Normal 10.9-14.2FWexner Medical CenterComment on above:Performed By: #### [id number] #### [facility] [address] [place] [address] 08785Hxvahdqsgy (Bld) [Volume fraction]43.7 %Ofkogq26.7-49.0[facility] HospitalComment on above:Performed By: #### [id number] #### [facility] [address] [place] [address] 98223Egfetqvmny (Bld) [Mass/Vol]14.5 g/kEClufwo32.5-17.5FWexner Medical CenterComment on above:Performed By: #### [id number] #### [facility] [address] [place] [address] 179[address]Jeyescitdkg (Bld) [#/Vol]2.0 E9/LNormal1.0-4.0[facility] Jewish HospitalComment on above:Performed By: #### [id number] #### [facility] [address] [place] [address] 08502Dxswukolqyf/100 WBC (Bld)22.4 %Hxpcrb61.0-50.0[facility] HospitalComment on above:Performed By: #### [id number] #### [facility] [address] [place] [address] 77703GHS (RBC) [Entitic mass]31.2 siAmhofe58.0-34.0[facility] HospitalComment on above:Performed By: #### [id number] #### [facility] [address] [place] [address] 26157DQZT (RBC) [Mass/Vol]33.2 g/eOBpxsny13.4-36.0[facility] HospitalComment on above:Performed By: #### [id number] #### [facility] [address] [place] [address] 69234LWP (RBC) [Entitic vol]94.2 wIYumevc16.0-100.0[facility] HospitalComment on above:Performed By: #### [id number] #### [facility] [address] [place] [address] 11955Mczcathyq (Bld) [#/Vol]0.7 E9/LNormal0.2-1.0[facility] Jewish HospitalComment on above:Performed By: #### [id number] #### [facility] [address] [place] [address] 09003Nxfdhoplbrz (Bld) [#/Vol]5.7 E9/LNormal2.0-7.5FWexner Medical CenterComment on above:Performed By: #### [id number] #### [facility] [address] [place] [address] 184[address]Blozwazablm/100 WBC (Bld)64.7 %Tesetc53.0-75.0[facility] HospitalComment on above:Performed By: #### [id number] #### [facility] [address] [place] [address] 318[address]Ykaanfps mean volume (Bld) [Entitic vol]9.2 fLNormal6.4-10.8 [facility] HospitalComment on above:Performed By: #### [id number] #### [facility] [address] [place], [place] [address]Mhlzwvzbx (Bld) [#/Vol]243.0 E9/CTthhri378.0-500.0[facility] HospitalComment on above:Performed By: #### [id number] #### [facility] [address] [place] [address]49[address]RUH (Bld) [#/Vol]4.6 E12/LNormal4.3-5.9[facility] HospitalComment on above:Performed By: #### [id number] #### [facility] [address] [place] [address]GIT corrected for nucl RBC Auto (Bld) [#/Vol]8.9 E9/LNormal 4.0-11.0[facility] HospitalComment on above:Performed By: #### [id number] #### [facility] [address] [place] [address]INWNUBPIPGsvoamz By: SYSTEM SYSTEM on 85-98-3867Cxjcnly [Mass/Vol]4.3 g/dLNormal3.3 - 5.0 gm/dLRemisol ChemAlbumin DL <= 20 mg/L (U) [Mass/Vol]0.7 mg/dLNormal0.0 - 1.9 mg/dLRemisol ChemAlbumin/Globulin [Mass ratio]1.7 {ratio}Normal1.1 - 2.2Remisol ChemALP [Catalytic activity/Vol]82 [iU]/pGsbfyt33 - 98 Int._Unit/LRemisol ChemALT No additional P-5'-P [Catalytic activity/Vol]17 [iU]/dNormal6 - 46 Int._Unit/LRemisol ChemAnion gap [Moles/Vol] 10 mmol/LNormal6 - 16 mEq/LRemisol ChemAST [Catalytic activity/Vol]18 [iU]/d Normal5 - 43 Int._Unit/LRemisol ChemBilirubin [Mass/Vol]0.6 mg/dLNormal0.0 - 1.1 mg/dLRemisol ChemCalcium [Mass/Vol]9.7 mg/dLNormal8.9 - 11.1 mg/dLRemisol Chem Chloride [Moles/Vol]108 mmol/YYsirda116 - 111 mmol/LRemisol ChemCO2 [Moles/Vol] 27 mmol/WBbzorp76 - 31 mmol/LRemisol ChemCreatinine [Mass/Vol]1.0 mg/dLNormal0.5 - 1.3 mg/dLRemisol AvqcnUMF89 mL/min/1.73 g8Slciqd>=59mL/min/1.73 j5Eikuwsl ChemGlobulin (S) [Mass/Vol]2.5 g/dLNormal1.4 - 4.0 gm/dLRemisol ChemGlucose [Mass/Vol]145 mg/vHIrgpth24 - 199 mg/dLRemisol ChemPotassium [Moles/Vol]4.2 mmol/LNormal3.5 - 5.3 mmol/LRemisol ChemProtein [Mass/Vol]6.8 g/dLNormal6.0 - 7.8 gm/dLRemisol ChemSodium [Moles/Vol]141 mmol/MYdnads043 - 145 mmol/LRemisol ChemUrea nitrogen [Mass/Vol]22 mg/dLHigh5 - 21 mg/dLRemisol ChemUrea nitrogen/Creatinine [Mass ratio]22 mg/hqGiky34 - 20Remisol ChemCHEMISTRYOrdered By: Isabel Cuellar on 19-88-1036RmP8g (Bld) [Mass fraction]6.5 %High<=5.9%[facility] ChemAutoSSCMPon 50-35-2949Imkjrts [Mass/Vol]4.3 g/dLNormal3.3-5.0[facility] HospitalComment on above:Performed By: #### [id number] #### [place] [facility] [address] [place], [place] [address]Jxynypq/Globulin (S) [Mass conc ratio]1.8Mwqrqr3.1-2.2FWexner Medical CenterComment on above:Performed By: #### [id number] #### [facility] [address] [place], [place] [address]YEF [Catalytic activity/Vol]82 Int._Unit/HCspamm35-46EvefcoMercy Health – The Jewish HospitalComment on above:Performed By: #### [id number] #### [facility] [address] [place], [place] [address] No additional P-5'-P [Catalytic activity/Vol]17 Int._Unit/L Normal6-46[facility] HospitalComment on above:Performed By: #### [id number] #### [facility] [address] [place], [place] [address]Ucyiw gap [Moles/Vol]10 mmol/LNormal6-16[facility] HospitalComment on above:Performed By: #### [id number] #### [facility] [address] [place], [place] [address]PQD [Catalytic activity/Vol]18 Int._Unit/LNormal5-43[facility] HospitalComment on above:Performed By: #### [id number] #### [facility] [address] [place], [place] [address]Qvdctizrz [Mass/Vol]0.6 mg/dLNormal0.0-1.1FWexner Medical CenterComment on above:Performed By: #### [id number] #### [facility] [address] [place], [place] [address]Pcrafec [Mass/Vol]9.7 mg/dLNormal8.9-11.1FWexner Medical CenterComment on above:Performed By: #### [id number] #### [facility] [address] [place], [place] [address]Yhtjujjb [Moles/Vol]108 mmol/IBgufcw026-151PoksbmMercy Health – The Jewish HospitalComment on above:Performed By: #### [id number] #### Flor [facility] [address] [place], [place] [address]HZ2 [Moles/Vol]27 mmol/OOqlabx22-69KizwcsMercy Health – The Jewish Hospital Comment on above:Performed By: #### [id number] #### [facility] [address] [place], [place] [address]Aeifcfpsty [Mass/Vol]1.0 mg/dLNormal0.5-1.3FWexner Medical CenterComment on above:Performed By: #### [id number] #### [facility] [address] [place], [place] [address]Monuozyh (S) [Mass/Vol]2.5 g/dLNormal1.4-4.0[facility] HospitalComment on above:Performed By: #### [id number] #### [facility] [address] [place], [place] [address]Quylmth [Mass/Vol]145 mg/iVIuhknq93-844OmgfrtMercy Health – The Jewish HospitalComment on above:Performed By: #### [id number] #### [facility] [address] [place], [place] [address]Xkozfsdru [Moles/Vol]4.2 mmol/LNormal3.5-5.3FWexner Medical CenterComment on above:Performed By: #### [id number] #### [facility] [address] [place], [place] [address]Gajyfcg [Mass/Vol]6.8 g/dLNormal6.0-7.8[facility] HospitalComment on above:Performed By: #### 2951093 #### [facility] [address] [place], [place] [address]Zjhsvt [Moles/Vol]141 mmol/TZwnmwj072-841ZjvdjpMercy Health – The Jewish HospitalComment on above:Performed By: #### [id number] #### [facility] [address] [place], [place] [address]Ckem nitrogen [Mass/Vol]22 mg/dLHigh5-21[facility] Jewish HospitalComment on above:Performed By: #### [id number] #### [facility] [address] [place], [place] [address]Ehyf nitrogen/Creatinine [Mass ratio]22 No NzodkYlro16-78AnmnqaMercy Health – The Jewish HospitalComment on above:Performed By: #### [id number] #### [facility] [address] [place], [place] [address] Office/Clinic Noteon 88-93-1192Bqfbui Medicine Office/Clinic NoteFoxborough State Hospital Medicine Office/Clinic Note HPI Staff Jeremie [...] a referral to Dr. Marlene Schneider in [place] for further evaluation. The patient has a [...] or previously received 4274F Lab Specimen Collect 31850 Microalbumin Level Urine Most recent diastolic blood [...] or previously received 4274F Lab Specimen Collect 97030 Microalbumin Level Urine Most recent diastolic blood [...] or previously received 4274F Lab Specimen Collect 02167 Microalbumin Level Urine Most recent diastolic blood pressure <80 mm Hg 3078F Patient screen for fall risk: no falls in last year or 1 fall with no injury in last year 1101F Systolic BP <130 mm Hg (Most Recent) 3074F 4. Former smoker (Z87.891: Personal history of nicotine dependence) Please continue not to smoke. Ordered: influe (more content not included)...[facility] County HospitalComment on above:Result Comment: Electronically Signed By: Allison CASON, Demetrius Rosa\.br\Date and Time Signed: 04/17/24 12:20 ESTHEMATOLOGYOrdered By: SYSTEM SYSTEM on 69-48-1110Bnjcjfdis/100 WBC (Bld)0.8 %Normal0.0 - 2.0 %Remisol Heme Basophils/Leukocytes Auto (Bld) [Pure # fraction]0.1 E9/LNormal0.0 - 0.2 E9/L Remisol HemeEosinophils (Bld) [#/Vol]0.4 E9/LNormal0.0 - 0.5 E9/LRemisol Heme Eosinophils/100 WBC (Bld)4.6 %Normal0.0 - 8.0 %Remisol HemeErythrocyte distribution width (RBC) [Ratio]14.0 %Qvxumw36.9 - 14.2 %Remisol HemeHematocrit (Bld) [Volume fraction]43.7 %Ialipu46.7 - 49.0 %Remisol HemeHemoglobin (Bld) [Mass/Vol]14.5 g/uSGtaaxh80.5 - 17.5 gm/dLRemisol HemeLymphocytes (Bld) [#/Vol] 2.0 E9/LNormal1.0 - 4.0 E9/LRemisol HemeLymphocytes/100 WBC (Bld)22.4 %Normal 14.0 - 50.0 %Remisol HemeMCH (RBC) [Entitic mass]31.2 xiIcjmes49.0 - 34.0 pg Remisol HemeMCHC (RBC) [Mass/Vol]33.2 g/qELpxyly01.4 - 36.0 gm/dLRemisol HemeMCV (RBC) [Entitic vol]94.2 jEMcryhf30.0 - 100.0 fLRemisol HemeMonocytes (Bld) [#/Vol]0.7 E9/LNormal0.2 - 1.0 E9/LRemisol HemeMonocytes/100 WBC (Bld)7.5 % Normal4.0 - 14.0 %Remisol HemeNeutrophils (Bld) [#/Vol]5.7 E9/LNormal2.0 - 7.5 E9/LRemisol HemeNeutrophils/100 WBC (Bld)64.7 %Ncxwfa57.0 - 75.0 %Remisol Heme Platelet mean volume (Bld) [Entitic vol]9.2 fLNormal6.4 - 10.8 fLRemisol Heme Platelets (Bld) [#/Vol]243.0 E9/KLonpst537.0 - 500.0 E9/LRemisol HemeRBC (Bld) [#/Vol]4.6 E12/LNormal4.3 - 5.9 E12/LRemisol HemeWBC corrected for nucl RBC Auto (Bld) [#/Vol]8.9 E9/LNormal4.0 - 11.0 E9/LRemisol VepeZrdC8uon 54-86-5629BgI7p (Bld) [Mass fraction]6.5 %High<=5.9[facility] Jewish HospitalComment on above: Performed By: #### [id number] #### [place] [facility] [address] [place] [address]E Microalbon 91-88-1009Qzycnqc DL <= 20 mg/L (U) [Mass/Vol]0.7 mg/dLNormal0.0-1.9[facility] HospitalComment on above:Performed By: #### [id number] #### [place] [facility] [address] [place], [place] [address]iARXlx 58-32-0099gRKR33 mL/min/1.73 r2Ejmqvh>=59[facility] HospitalComment on above:Performed By: #### [id number] #### [place] [facility] [address] [place], [place] [address]Npfrm metabolic 2000 panelon 29-41-4945Litjd gap [Moles/Vol]15 mmol/IZoogak16-38LqnfcokosyGreene Memorial HospitalComment on above: Performed By: #### 64724-2 #### TING Knox (86144) [facility] ([facility]) [address] [place] [address]Epnjooj [Mass/Vol]9.9 mg/dLNormal8.6-10.6UnGreene Memorial HospitalComment on above:Performed By: #### 01913-0 #### TING Knox (01719) [facility] ([facility]) [address] [place] [address] 63[address]Bkpauluv [Moles/Vol]107 mmol/UXhnodn49-103HrtluczckgGreene Memorial HospitalComment on above:Performed By: #### 31310-6 #### TING Knox (88819) [facility] ([facility]) [address] [place] [address] 69[address]II2 [Moles/Vol]25 mmol/LNgqbzi13-04VgejhazvzxGreene Memorial HospitalComment on above:Performed By: #### 02812-1 #### TING Knox (22819) [facility] ([facility]) [address] [place] [address]Kxycddxtwk [Mass/Vol]0.96 mg/dLNormal0.50-1.30UnGreene Memorial HospitalComment on above:Performed By: #### 39969-8 #### TING Knox (74772) [facility] ([facility]) [address], [place] [address]Lnewrxennz filtration rate/1.73 sq M.kiphjjthg98 mL/min/1.73m*2Normal>60UnGreene Memorial HospitalComment on above:Result Comment: Calculations of estimated GFR are performed using the 2020 CKD-EPI Study Refit equation without the race variable for the IDMS-Traceable creatinine methods. https://jasn.asnjournals.org/content/early//ASN.4844739666Lkmhhmezg By: #### 16652-7 #### TING Knox (85307) [facility] ([facility]) [address] [place] [address]Pdtfije [Mass/Vol]109 mg/kMYvfz36-01YkknfhbwdbGreene Memorial HospitalComment on above:Performed By: #### 26136-7 #### TING VIEIRA L (37172) [facility] ([facility]) [address], [place] [address]Ruvtewkwz [Moles/Vol]4.5 mmol/LNormal3.5-5.3[facility] CenterComment on above:Performed By: #### 98860-5 #### TING Knox (80102) [facility] ([facility]) [address] [place] [address]Gaebsn [Moles/Vol]142 mmol/FRhspfr325-558RhiyjszeifGreene Memorial HospitalComment on above:Performed By: #### 84571-9 #### TING VIEIRA L (43884) [facility] ([facility]) [address] [place] [address]Gewy nitrogen [Mass/Vol]18 mg/dLNormal6-23[facility] Medical CenterComment on above:Performed By: #### 11827-9 #### TING VIEIRA L (07589) [facility] ([facility]) [address] [place] [address]IGN panel Auto (Bld)on 92-52-7305Naukuyoiwlw distribution width (RBC) [Ratio]13.3 %Bfwcyz69.5-14.5[facility] Medical CenterComment on above:Performed By: #### 93694-4 #### TING Knox (72876) [facility] ([facility]) [address] [place] [address] 638[address]Rtmgmecjik (Bld) [Volume fraction]45.5 %Rgllqp64.0-52.0 [facility] CenterComment on above:Performed By: #### 15735-3 #### TING Knox (32747) [facility] ([facility]) [address] [place] [address]Pdlwoiijoz (Bld) [Mass/Vol]14.5 g/tFCmdivt13.5-17.5UnGreene Memorial HospitalComment on above:Performed By: #### 87203-3 #### TING Knox (55422) [facility] ([facility]) [address] [place] [address] 76369ODL (RBC) [Entitic mass]30.1 xcGpbmzs15.0-34.0UnGreene Memorial HospitalComment on above:Performed By: #### 64384-4 #### TING Knox (37130) [facility] ([facility]) [address] [place] [address] 128[address]UUFJ (RBC) [Mass/Vol]31.9 g/dLLow32.0-36.0UnGreene Memorial HospitalComment on above:Performed By: #### 04532-6 #### TING Knox (93643) [facility] ([facility]) [address] [place] [address]10[address]FJR (RBC) [Entitic vol]94 eOGyziox50-590WnjtixhbjqGreene Memorial HospitalComment on above:Performed By: #### 09509-3 #### TING Knox (29084) [facility] ([facility]) [address], [place] [address]Dbjfcgfbx RBC/100 WBC (Bld) [Ratio]0.0 /100 WBCsNormal0.0-0.0 [facility] CenterComment on above:Performed By: #### 67367-5 #### TING Knox (60003) [facility] ([facility]) [address] [place], [place] [address]Rliyoarkk (Bld) [#/Vol]254 x10*3/oBYvsfvk481-643HmenquzbpmGreene Memorial HospitalComment on above:Performed By: #### 59360-8 #### TING Knox (49595) [facility] ([facility]) [address] [place], [place] [address]ZRA (Bld) [#/Vol]4.82 x10*6/uLNormal4.50-5.90UnGreene Memorial HospitalComment on above:Performed By: #### 12863-3 #### TING Knox (49141) [facility] ([facility]) [address] [place] [address]89[address]QYL (Bld) [#/Vol]8.5 x10*3/uLNormal4.4-11.3UnGreene Memorial HospitalComment on above:Performed By: #### 36487-4 #### TING Knox (40976) [facility] ([facility]) [address] [place] [address]Nzwjesvg pathology studyon 45-09-7025Xzwhfptd pathology study Pathology report.total SEE COMMENT Surgical Pathology Case: [id number] Authorizing Provider: Mary Schneider MD Collected: 04/07/2024 1137 Ordering Location: [facility] Received: 04/07/2024 1145 Pathologist: Alessandro Arzate [...] PAS is negative for heart fungal organisms. erp consultant: Dr. Jose Leary. Laboratory comment By [...] submitted in toto in one cassette. The Jewish HospitalGLUCOSE, BLOOD (POC)on 38-05-7495Bowkgmt [Mass/Vol]113 mg/uLLsdkskjk26 - 99 mg/dLPromedica Defiance Regional Hospital Comment on above:Location:[facility], [address] [place] [address] , [place], [place], [facility] The Accu-Chek Inform II glucose meter has [...] situations. Interpretation and review of laboratory resultsAbnormalCleveland Barberton Citizens [facility] PET/CT SKULL-THIGH INITon 92-32-3808DD PET/CT SKULL-THIGH INIT* * *Final Report* * [...] * Uptake Time: 61 minutes * Radiopharmaceutical: P01-Xjkpreajqioaqynwnm (FDG) COMPARISON: No previous FDG PET/CT available [...] the care of you (more content not included)...NormalJoint Township District Memorial HospitalAmbulatory Visit Summaryon 09-01-2293Npggbchimd Visit SummaryAmbulatory Visit Summary JEREMIE BENNETT :1940 [...] Tab) fluticasone nasal (fluticasone Nasal 0.05 mg/inh [place]) furosemide (furosemide 20 mg Tab) irbesartan (irbesartan [...] AM EST With: Demetrius Cooper MD Where: [address] [address]- Wednesday 2:30 PM EDT With: Where: [place] [id number]- Medications What How Much When Instructions Unchanged [...] fluticasone nasal (fluticasone Nasal 0.05 mg/ inh [place]) See instructions USE 1 SPRAY IN BOTH [...] Non-Formulary Medication (Misc Medication (more content not included)...[facility] HospitalGastroenterology Office/Clinic Note on 07-50-2369Tiwcyzmodvxdiong Office/Clinic NoteGastroenterology Office/Clinic Note Chief Complaint 5 [...] [place] [facility] [place] node, core biopsy: [...] spondylosis Chronic GERD Coronary artery disease involving elim 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 [...] Angioplasty, Cardiac pacemaker proced (more content not included)...[facility] Comment on above:Result Comment: Electronically Signed By: Beatriz CASON, Inez Fuens\.br\Date and Time Signed: 03/23/24 14:49 ESTLon 20-36-4405DSdrbwege: [id number] 857 Received: 02/29/24 Status: LISA Kirby Num: [id number] Spec Type: Surgical Subm Dr: LUC HAM [...] Account Attending Physician Jeremie Bennett 83/M LABELL [id number] LUC HAM MD SPEC NUM: [id number] RECD: 02/29/24 STATUS: LISA KIRBY NUM: [id number] DONTRELL: 02/29/24- SUBM DR: LUC HAM MD ENTERED: 02/29/[address] [facility] [address]: Nicolette,Lab SPEC TYPE: Surgical DEPT: MANNY MONTEZ ENTERED BY: [id number] RECV BY: [id number] ORDERED: S 100, Mucicarmine, HE/6, Gross/Micro L4/2, [...] Signed (signature on file) Yair-Anup Sanchez MD 03/04/245 Pathological Diagnosis A, right cervical lymph node, core biopsy: -Positive for metastatic carcinoma, 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 Note: Specimen: [id number] Received: 02/29/24 Status: LISA Kirby Num: [id number] Spec Type: Surgical Subm Dr: LUC HAM MD Tissues: A Lymph Node - Biopsy (Needle or Incisional) (RT CERVICAL LYMPH NODE) B Lymph Node - Biopsy (Needle or Incisional) (RT CERVICAL LYMPH NODE-SALIN) Procedures: S 100, Mucicarmine, HE/6, Gross/Micro L4/2, CK5 6, CK20, CK 7, NAPSIN A, CINtec p16, TTF1, NKX3.1, MOC31, GATA3, p40, DIFF QWIK Patient: Jeremie Bennett [id number] (Continued) Specimen: [id number] Received: 02/29/24 (Continued) Pathological Diagnosis (Continued) Signed (signature on file) Tae Sanchez MD 03/04/24 1033 Specimen: [id number] Received: 02/29/24 Status: LISA Kirby Num: [id number] Spec Type: Surgical Subm Dr: LUC HAM MD Tissues: A Lymph Node - Biopsy (Needle or Incisional) (RT CERVICAL LYMPH NODE) B Lymph Node - Biopsy (Needle or Incisional) (RT CERVICAL LYMPH NODE-SALIN) Procedures: S 100, Mucicarmine, HE/6, Gross/Micro L4/2, CK5 6, CK20, CK 7, NAPSIN A, CINtec p16, TTF1, NKX3.1, MOC31, GATA3, p40, DIFF QWIK Patient: Jeremie Bennett [id number] (Continued) Specimen: [id number] Received: 02/29/24-151 (Continued) Pathological Diagnosis (Continued) -The [...] for flow c (more content not included)...NormalThe [facility] Physician GroupCT SOFT TISSUE NECK W IV CONTRASTon [id number] SOFT TISSUE NECK W IV CONTRAST TITLE [...] above:Order Comment: CT S/T Neck W at [facility]. Please call patient to schedule.Itz [phone] Telephone ([facility]) JEREMIE BENNETT ([id number]) 1940 M Date Time Provider Department 02/02/24 VAISHALI PRINGLE [facility] During your visit today, we recorded the [...] and it was completed in 12/2023 at [facility]. Our office will request results for Dr. 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 - omeprazole (PRILOSEC) 40 mg capsule Take [...] (None) Encounter Status:Closed by CARLITOS BECKMAN on 02/18/24[facility] HospitalAmbulatory Visit Summaryon [id number] Visit SummaryAmbulatory Visit Summary JEREMIE BENNETT :1940 [...] Tab) fluticasone nasal (fluticasone Nasal 0.05 mg/inh [place]) furosemide (furosemide 20 mg Tab) irbesartan (irbesartan [...] EST With: Beatriz CASON, Inez Funes Where: [facility] [address] [place] [address] [place] [address]- Wednesday 10:00 AM EST With: Allison CASON, Deemtrius Rosa Where: [address] [phone]- Wednesday 2:30 PM EDT With: Where: [address] [address]- Medications What How Much When [...] fluticasone nasal (fluticasone Nasal 0.05 mg/ inh [place]) See instructions USE 1 SPRAY IN BOTH [...] DME Prescription) See instructions (more content not included)...[facility] Office/Clinic Noteon [id number] Medicine Office/Clinic NoteFamercy medical center Medicine Office/Clinic Note HPI Staff Jeremie is [...] BID, # 20 cap(s), Refills(s) 0, Pharmacy: [facility][id number], 160, cm, 01/10/24 9:43:00 EDT, Height/Length Dosing, 77.8, kg, 01/10/24 9:43:00 EDT, Weight Dosing Follow-up No qualifying data available Problem List/Past Medical History Ongoing BMI 29.0-29.9,adult Cervical lymphadenopathy Cervical spondylosis Chronic GERD Coronary artery disease involving elim 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 [...] PRN, 1 refills fluticasone Nasal 0.05 mg/inh [place], See Instructions furosemide 20 mg Tab, 20 [...] concerns: No., 11/08/2023 Substanc (more content not included)...[facility] HospitalComment on above:Result Comment: Electronically Signed By: [...] mg Tab) fluticasone nasal (Flonase 0.05 mg/inh [place]) furosemide (furosemide 20 mg Tab) irbesartan (irbesartan [...] AM EDT With: Demetrius Cooper MD Where: [address] [address]- 2023 2:45 PM EST With: Beatriz CASON, Inez Funes Where: [facility] [address] [address]- Wednesday 10:00 AM EST With: Demetrius Cooper MD Where: [address] [address]- Wednesday 2:30 PM EDT With: Where: [address] [address]- Medications What How Much When [...] Unchanged fluticasone nasal (Flonase 0.05 mg/ inh [place]) 1 Sprays Nasal Inhalation 2 times a [...] By Mouth Every day Unchanged Misc Prescription ([facility] Prescription) See instructions one touch ultra [...] day Unchanged zonisamide (z (more content not included)...[facility] Medicine Office/Clinic Noteon [id number] Medicine Office/Clinic NoteFamercy [facility] center Medicine Office/Clinic Note HPI Staff Jeremie is [...] BID, # 20 cap(s), Refills(s) 0, Pharmacy: [facility] #[id number], 160, cm, 01/10/24 9:43:00 EDT, Height/Length Dosing, 77.8, kg, 01/10/24 9:43:00 EDT, Weight Dosing Follow-up No qualifying data available Problem List/Past Medical History Ongoing BMI 29.0-29.9,adult Cervical lymphadenopathy Cervical spondylosis Chronic GERD Coronary artery disease involving elim 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 [...] q4hr, PRN, 1 refills Flonase 0.05 mg/inh [place], 1 spray(s), Nasal, BID furosemide 20 mg Tab, 20 mg= 1 tab(s), Oral, Daily irbesartan 300 mg Tab, 300 mg= 1 tab(s), Oral, Daily isosorbide mononitrate, 30 mg, Oral, qAM latanoprost Opth 0.005% Janee loperamide 2 mg (more content not included)...[facility] Comment on above:Result Comment: Electronically Signed By: Allison CASON, Demetrius Branham.br\Date and Time Signed: 01/10/24 10:38 EDTCNPFaviola [id number] ([id number]) JEREMIE BENNETT ([id number]) 1940 M Date Time Provider Department 04/05/23 VAISHALI PRINGLE [id number] During your visit today, we recorded the following information about you: Lolly Dumont 04/05/2023 9:55 AM Signed Received records from [facility]. Reports for imaging listed below scanned. Images pushed through 09/27/2019 US Right Upper Quad 03/31/2020 CT ABD/PEL US Right Upper Quad [facility] MRI Abdomen 02/22/2023 US Soft Tissue [...] papillary mucinous neoplasm) [D49.0] Order(s):GI TUMOR BOARD [facility] [APPT42] Order #: [id number]: 1 FUTURE Prescriptions as of 04/06/2023 - isosorbide mononitrate ER (IMDUR) 30 mg 24 hr tablet Take 30 mg by mouth. - clopidogrel (PLAVIX) 75 mg tablet - furosemide (LASIX) 20 mg tablet Take 20 mg by mouth. - fluticasone (FLONASE) 50 mcg/actuation nasal spray 1 [place]. - omeprazole (PRILOSEC) 40 mg capsule Take [...] (None) Encounter Status:Closed by LAMONTE COUCH on 04/06/23[facility] [id number] Visit ([id number]) JEREMIE BENNETT ([id number]) 1940 M Date Time Provider Department 04/01/23 1:00 PM VAISHALI PRINGLE [id number] During your visit today, we recorded the [...] way of the shared medical record or [facility]. Jeremie Bennett is a 82 year [...] his GI re (more content not included)...Normal [facility] HospitalCHEMISTRYOrdered By: SYSTEM SYSTEM on 03-10-2023 Albumin [Mass/Vol]4.0 g/dLNormal3.3 - 5.0 gm/dLFTMC RemisolAlbumin/Globulin [Mass ratio]1.2 {ratio}Normal1.1 - 2.2[facility] RemisolALP [Catalytic activity/Vol]65 [iU]/sFaqquo19 - 98 Int._Unit/LFTMC RemisolALT No additional P-5'-P [Catalytic activity/Vol]17 [iU]/dNormal6 - 46 Int._Unit/LFTMC RemisolAnion gap [Moles/Vol] 10 mmol/LNormal6 - 16 mEq/LFTMC RemisolAST [Catalytic activity/Vol]16 [iU]/d Normal5 - 43 Int._Unit/LFTMC RemisolBilirubin [Mass/Vol]0.4 mg/dLNormal0.0 - 1.1 mg/dLFTMC RemisolCalcium [Mass/Vol]9.2 mg/dLNormal8.9 - 11.1 mg/dLFTMC Remisol Chloride [Moles/Vol]108 mmol/BOqrmqv280 - 111 mmol/LFTMC RemisolCO2 [Moles/Vol] 25 mmol/AYnzvow95 - 31 mmol/LFTMC RemisolCreatinine [Mass/Vol]1.1 mg/dLNormal0.5 - 1.3 mg/dLFT RemisolGFR/1.73 sq M.predicted among non-blacks MDRD (S/P/Bld) [Vol rate/Area]67 mL/min/1.73 o9Dpexyt>=59mL/min/1.73 m2FT Chem SComment on above:Interpretive Data: Chronic kidney disease could be indicated at eGFR's of less than 60 mL/min/1.73m2. Kidney failure is indicated at less than 15 mL/min/1.73m2.Globulin (S) [Mass/Vol]3.3 g/dLNormal1.4 - 4.0 gm/dLFT Remisol Glucose [Mass/Vol]136 mg/sMLvsdkv39 - 199 mg/dLFT RemisolComment on above: Interpretive Data: If this glucose result represents a fasting glucose, interpretation should referto the following reference range: 55-99 mg/dL Potassium [Moles/Vol]3.9 mmol/LNormal3.5 - 5.3 mmol/LFTMC RemisolProtein [Mass/Vol]7.3 g/dLNormal6.0 - 7.8 gm/dLFT RemisolSodium [Moles/Vol]139 mmol/L E[place]750 - 145 mmol/LFTMC RemisolUrea nitrogen [Mass/Vol]20 mg/dLNormal5 - 21 mg/dLFT RemisolUrea nitrogen/Creatinine [Mass ratio]18 mg/ldNikxdy07 - 20FTMC RemisolHEMATOLOGYOrdered By: SYSTEM SYSTEM on 37-32-0351Zulaaytsn/100 WBC (Bld) 0.4 %Normal0.0 - 2.0 %[facility] HemeAutoSSBasophils/Leukocytes Auto (Bld) [Pure # fraction]0.0 E9/LNormal0.0 - 0.2 E9/LFTMC HemeAutoSSEosinophils/100 WBC (Bld)2.4 %Normal0.0 - 8.0 %[facility] HemeAutoSSEosinophils/Leukocytes Auto (Bld) [Pure # fraction]0.2 E9/LNormal0.0 - 0.5 E9/LFTMC HemeAutoSSLymphocytes/100 WBC (Bld) 21.9 %Kufmwl13.0 - 50.0 %[facility] HemeAutoSSLymphocytes/Leukocytes Auto (Bld) [Pure # fraction]1.8 E9/LNormal1.0 - 4.0 E9/LFTMC HemeAutoSSMonocytes/100 WBC (Bld)6.9 %Normal4.0 - 14.0 %[facility] HemeAutoSSMonocytes/Leukocytes Auto (Bld) [Pure # fraction]0.6 E9/LNormal0.2 - 1.0 E9/LFTMC HemeAutoSSNeutrophils/100 WBC (Bld) 68.4 %Njauvy25.0 - 75.0 %[facility] HemeAutoSSNeutrophils/Leukocytes Auto (Bld) [Pure # fraction]5.8 E9/LNormal2.0 - 7.5 E9/LFTMC HemeAutoSSHEMATOLOGYOrdered By: Ethel Peters on 96-83-1959Uzintonsvje distribution width (RBC) [Ratio]13.9 % Oqbiwq04.9 - 14.2 %[facility] HemeAutoSSHematocrit (Bld) [Volume fraction]43.6 %Normal 37.7 - 49.0 %[facility] HemeAutoSSHemoglobin (Bld) [Mass/Vol]14.5 g/pRFlhwzu29.5 - 17.5 gm/dLFTMC HemeAutoSSMCH (RBC) [Entitic mass]30.4 dtTggmwz92.0 - 34.0 pgFTMC HemeAutoSSMCHC (RBC) [Mass/Vol]33.2 g/rOQtjzrj54.4 - 36.0 gm/dLFTMC HemeAutoSS MCV (RBC) [Entitic vol]91.7 hPXzubed63.0 - 100.0 fLFTMC HemeAutoSSPlatelet mean volume (Bld) [Entitic vol]8.6 fLNormal6.4 - 10.8 fLFTMC HemeAutoSSPlatelets (Bld) [#/Vol]236.0 E9/HPfozty629.0 - 500.0 E9/LFTMC HemeAutoSSRBC (Bld) [#/Vol] 4.8 E12/LNormal4.3 - 5.9 E12/LFTMC HemeAutoSSWBC corrected for nucl RBC Auto (Bld) [#/Vol]8.4 E9/LNormal4.0 - 11.0 E9/LFTMC HemeAutoSSMICRO OTHER TESTS Ordered By: Elba Felipe on 44-86-6878Fhvxz WBC LactoferrinNegative 3 (03/10/23 12:45 PM)NormalNegativeHARMON MEM[facility] Man SeroComment on above:Interpretive Data: The semi-quantitative detection of elevated levels of fecal lactoferrin is a marker for fecal leukocytes and an indication of intestinal inflammation. CHEMISTRYOrdered By: Yash Shah on 38-38-8033Rfekiui DL <= 20 mg/L (U) [Mass/Vol]microgram/mLNormal0.0 - 19.0 mcg/mLHARMON MEMORIAL HOSPITAL [facility] RemisolAlbumin Elph (U) [Mass fraction]mg/dLInvalid Interpretation CodeHARMON MEMORIAL HOSPITAL [facility] RemisolCreatinine (U) [Mass/Vol] 15.9 mg/dLInvalid Interpretation CodeHARMON MEMORIAL HOSPITAL [facility] Chem MONSALVE Prot/Creat RatioUTCInvalid Interpretation Code0.00 - 200.00[facility] Chem SComment on above:Result Comment: Unable to calculate due to Protein being less than analyzer reportable range.CBC AUTO DIFFon 73-87-3071PNUL #0.1 103/ulNormal0.0-0.1Providence HospitalComment on above:Performed By: #### CBC #### [facility] [address] [address] [address] Ramsey Kirbysophils/100 WBC (Bld)0.7 %Normal0.2-2.0[facility] Comment on above:Performed By: #### CBC #### [facility] [address] [address] [address] Ramsey Ortiz #0.2 103/ulNormal0.0-0.7The [facility] HospitalComment on above: Performed By: #### CBC #### [facility] [address] [address] [address] Ramsey Canoosinophils/100 WBC (Bld)1.5 %Normal0.9-7.0[facility] Comment on above:Performed By: #### CBC #### [facility] [address] [place] [address] Dr. Ramsey Canorythrocyte distribution width (RBC) [Ratio]13.6 %Qshnvt39.0-15.[address] [facility] HospitalComment on above:Performed By: #### CBC #### [facility] [address] [place] [address] Dr. Ramsey SanchezHematocrit (Bld) [Volume fraction]43.5 %Kfnzoa39.0-54.0The [facility] HospitalComment on above:Performed By: #### CBC #### [facility] [address] [place] [address] Dr. Ramsey SanchezHemoglobin (Bld) [Mass/Vol]13.9 g/dLCritically low14.0-18.0Providence HospitalComment on above:Performed By: #### CBC #### [facility] [address] [place] [address] Dr. Ramsey Nowak #0.29 10e3/ulCritically high0.00-0.03[facility] Comment on above:Performed By: #### CBC #### [facility] [address] [place] [address] Dr. Ramsey Nowak %2.9 %Critically high0.0-0.5The [facility] HospitalComment on above:Performed By: #### CBC #### [facility] [address] [place] [address] Dr. Ramsey Damon #2.1 103/ulNormal1.2-3.8The [facility] HospitalComment on above:Performed By: #### CBC #### [facility] [address] [place] [address] Dr. Ramsey Greenwoodhocytes/100 WBC (Bld)20.8 %Xkuwuv78.5-60.0[facility] HospitalComment on above:Performed By: #### CBC #### [facility] [address] [place] [address] Dr. Ramsey MurrietaUAL DIFF REQNONormalThe [facility] St[facility] Mary HospitalComment on above: Performed By: #### CBC #### [facility] [address] [place] [address] Dr. Ramsey Enriquez (RBC) [Entitic mass]29.6 dwTxwxkh17.9-34.0[facility] HospitalComment on above:Performed By: #### CBC #### [facility] [address] [place] [address] Dr. Ramsey Enriquez (RBC) [Mass/Vol]32.0 g/bZDnjexj70.9-35.2The [facility] HospitalComment on above:Performed By: #### CBC #### [facility] [address] [place] [address] Dr. Ramsey Enriquez (RBC) [Entitic vol]92.6 mIXxnscj06.0-94.0The [facility] HospitalComment on above:Performed By: #### CBC #### [facility] [address] [place] [address] Dr. Ramsey Ignacio #0.8 103/ulNormal0.3-0.8The [facility] HospitalComment on above:Performed By: #### CBC #### [facility] [address] [place] [address] Dr. Ramsey Ervinocytes/100 WBC (Bld)8.3 %Normal1.7-12.0[facility] Comment on above:Performed By: #### CBC #### [facility] [address] [place] [address] Dr. Ramsey Cooney #6.5 103/ulNormal1.4-6.5The [facility] HospitalComment on above:Performed By: #### CBC #### [facility] [address] [place] [address] Dr. Ramsey Torresutrophils/100 WBC (Bld)65.8 %Gbcvrx98.0-75.0The [facility] HospitalComment on above:Performed By: #### CBC #### [facility] [address] [place] [address] Dr. Ramsey Garciaslet mean volume (Bld) [Entitic vol]11.1 fLNormal9.5-13.5The [facility] HospitalComment on above:Performed By: #### CBC #### [facility] [address] [place] [address] Dr. Ramsey SanchezPLT198 103/ymGnkckv674-241Uop [facility] HospitalComment on above: Performed By: #### CBC #### [facility] [address] [place] [address] Dr. Ramsey SanchezRBC4.70 106/ulNormal4.70-6.10The [facility] HospitalComment on above:Performed By: #### CBC #### [facility] [address] [place] [address] Dr. Ramsey SanchezWBC9.9 103/ulNormal4.0-11.0The [facility] HospitalCombeaumont hospital on above: Performed By: #### CBC #### [facility] [address] [place] [address] Dr. Ramsey Delgadillo URINE PROFILEon 86-18-0903Ohomdaado Ql (U)NegativeNormal NEGATIVEProvidence HospitalComment on above:Performed By: #### ERUR #### [facility] [address] [place] [address] Dr. Ramsey Baca (U)CLEARNormalCLEARProvidence HospitalCombeaumont hospital on above: Performed By: #### ERUR #### [facility] [address] [place] [address] Dr. Ramsey Mendez (U)YELLOWNormalYELLOWProvidence HospitalComment on above: Performed By: #### ERUR #### [facility] [address] [place] [address] Dr. Ramsey Phan micrscopic examination will be performed if indicated. NormalThe [facility] St. [facility] HospitalCombeaumont hospital on above:Performed By: #### ERUR #### [facility] [address] [place] [address] Dr. Ramsey Songose Ql (U)NegativeNormalNEGATIVEProvidence HospitalComment on above:Performed By: #### ERUR #### [facility] [address] [place] [address] Dr. Ramsey SanchezHemoglobin Ql (U)NegativeNormalNEGATIVEProvidence Hospital Comment on above:Performed By: #### ERUR #### [facility] [address] [place] [address] Dr. Ramsey Pradoones Ql (U)NegativeNormalNEGATIVEThe [facility] St[facility] HospitalComment on above:Performed By: #### ERUR #### [facility] [address] [place] [address] Dr. Ramsey SanchezLEUKOCYTESNegativeNormalNEGATIVEProvidence HospitalComment on above:Performed By: #### ERUR #### [facility] [address] [place] [address] Dr. Ramsey SanchezNitrite Ql (U)NegativeNormalNEGATIVEProvidence HospitalComment on above:Performed By: #### ERUR #### [facility] [address] [place] [address] Dr. Ramsey SanchezpH (U)5.5 [pH]Normal5-9The [facility] HospitalComment on above: Performed By: #### ERUR #### [facility] [address] [place] [address] Dr. Ramsey SanchezSPEC GRAVITY1.786Zupdpv2.005-<=1.025The [facility] HospitalComment on above:Performed By: #### ERUR #### [facility] [address] [place] [address] Dr. Ramsey Calle PROTEINNegativeNormalNEGATIVE/ TRACEThe [facility] Comment on above:Performed By: #### ERUR #### [facility] [address] [place] [address] Dr. Ramsey Hemphill MICRO INDNOT INDICATEDNoalThMount St. Mary HospitalComment on above:Performed By: #### ERUR #### [facility] [address] [place] [address] Dr. Ramsey Arredondobilinogen Qn (U)0.2 {Leatha'U}/dLNormal0.2 - 1.0The [facility] HospitalComment on above:Performed By: #### ERUR #### [facility] [address] [address] [address] Ramsey SanchezLACTATE/LACTIC ACIDon 11-65-7010Bitumcd [Moles/Vol]1.7 mmol/L Normal0.4-2.0The [facility] HospitalComment on above:Performed By: #### LACT #### [facility] [address] [address] [address] Ramsey SanchezPROF 14(COMP METB)on 60-79-7503Tcmqyox [Mass/Vol]3.1 g/dL Critically low3.4-5.0The [facility] HospitalComment on above:Performed By: #### CMP, HSTROPN #### [facility] [address] [place] [address] Dr. Ramsey SanchezAlbumin/Globulin [Mass ratio]0.8 {ratio}NormalThe [facility] St[facility] Mary HospitalComment on above:Performed By: #### CMP, HSTROPN #### [facility] [address] [place] [address] Dr. Ramsey Mcgrath [Catalytic activity/Vol]73 U/ZPmxyrt58-036Cov [facility] Trumbullment on above:Performed By: #### CMP, HSTROPN #### [facility] [address] [place] [address] Dr. Ramsey Mclean [Catalytic activity/Vol]22 U/CQromdj83-32Gdg [facility] HospitalComment on above:Performed By: #### CMP, HSTROPN #### [facility] [address] [place] [address] Dr. Ramsey Graham gap [Moles/Vol]13.5 mmol/LNormalThe [facility] on above:Performed By: #### CMP, HSTROPN #### [facility] [address] [place] [address] Dr. Ramsey Wilson [Catalytic activity/Vol]26 U/PRvzawl16-91Gsy [facility] Trumbullment on above:Performed By: #### CMP, HSTROPN #### [facility] [address] [address] [address] Ramsey SanchezBilirubin [Mass/Vol]0.4 mg/dLNormal0.2-1.0[facility] Comment on above:Performed By: #### CMP, HSTROPN #### [facility] [address] [address] [address] Ramsey SanchezCalcium [Mass/Vol]8.4 mg/dLCritically low8.5-10.1The [facility] HospitalComment on above:Performed By: #### CMP, HSTROPN #### [facility] [address] [address] [address] Ramsey SanchezChloride [Moles/Vol]107 mmol/LGdflpj49-678Gsl [facility] Comment on above:Performed By: #### CMP, HSTROPN #### [facility] [address] [place] [address] Dr. Ramsey SanchezCO2 [Moles/Vol]26.1 mmol/QWxpqbj28.0-32.0The [facility] Comment on above:Performed By: #### CMP, HSTROPN #### [facility] [address] [address] [address] Ramsye SanchezCreatinine [Mass/Vol]0.94 mg/dLNormal0.70-1.30The [facility] HospitalComment on above:Performed By: #### CMP, HSTROPN #### [facility] [address] [place] [address] Dr. Ramsey CanoGFR-AF HAITIAN>60Normal>=60The [facility] HospitalComment on above:Performed By: #### CMP, HSTROPN #### [facility] [address] [place] [address] Dr. Ramsey CanoGFR-NON AF HAITIAN>60Normal>=60The [facility] HospitalComment on above:Performed By: #### CMP, HSTROPN #### [facility] [address] [place] [address] Dr. Ramsey SanchezGlobulin (S) [Mass/Vol]3.7 g/dLNormalThe [facility]ector HospitalComment on above:Performed By: #### CMP, HSTROPN #### [facility] [address] [address] [address] Ramsey SanchezGlucose [Mass/Vol]118 mg/dLCritically omrt72-317Yti [facility] HospitalComment on above:Performed By: #### CMP, HSTROPN #### [facility] [address] [place] [address] Dr. Ramsey SanchezPotassium [Moles/Vol]3.6 mmol/LNormal3.5-5.1The [facility] Comment on above:Performed By: #### CMP, HSTROPN #### [facility] [address] [place] [address] Dr. Ramsey SanchezProtein [Mass/Vol]6.8 g/dLNormal6.4-8.2The [facility] Comment on above:Performed By: #### CMP, HSTROPN #### [facility] [address] [place] [address] Dr. Ramsey SanchezSodium [Moles/Vol]143 mmol/ANdihwr517-491Wig [facility] Comment on above:Performed By: #### CMP, HSTROPN #### [facility] [address] [place] [address] Dr. Ramsey SanchezUrea nitrogen [Mass/Vol]19.0 mg/dLCritically high7.0-18.0The [facility] HospitalComment on above:Performed By: #### CMP, HSTROPN #### [facility] [address] [place] [address] Dr. Ramsey SanchezUrea nitrogen/Creatinine [Mass ratio]20.2 mg/mgNoParkview Health Bryan HospitalComment on above:Performed By: #### CMP, HSTROPN #### [facility] [address] [place] [address] Dr. Ramsey Stewadr, HIGH SENSITIVITYon 77-63-0188DSIMEN5.8 pg/mLNormal 4.0-76.1Providence HospitalComment on above:Result Comment: CUT-OFF POINTS HAVE BEEN ESTABLISHED BASED ON THE FOURTH UNIVERSAL DEFINITIONS OF MYOCARDIAL INFARCTION. THE UPPER REFERENCE LIMIT (URL) OF TROPONIN, DEFINED THE 99TH PERCENTILE OF cTnI DISTRIBUTION IN A REFERENCE POPULATION, HAS BEEN CONFIRMED THE DECISION THRESHOLD FOR [place] DIAGNOSIS.Performed By: #### CMP, HSTROPN #### [facility] [address] [address] [address] Ramsey SanchezXR CHEST 1 Von 01-08-6114KC CHEST 1 VEXAM: XR CHEST 1 V [...] hardware and overlying objects out of the bytmh-le-acje. Electronically authenticated by: ALANNA CARLOS Date: 2022-09-29 16:37St[facility] HospitalBNPon 02-06-7524Mnyqjqtmuss peptide B (Bld) [Mass/Vol]720.0 pg/mLNormal<=1,800.0[facility] HospitalComment on above:Performed By: #### CXSTOOL #### [facility] [address] [place] [address] Dr. Ramsey Bruno RAFI ADMITon [id number] [Catalytic activity/Vol]198 U/L Ntcajv86-583Fua [facility] HospitalComment on above:Performed By: #### CXSTOOL #### [facility] [address] [address] [address] Ramsey Reyes.MB [Mass/Vol]2.62 ng/mLNormal<=3.60[facility] Comment on above:Performed By: #### CXSTOOL #### [facility] [address] [address] [address] Ramsey SanchezHSTROP8.8 pg/mLNormal4.0-76.1The [facility] HospitalComment on above:Result Comment: CUT-OFF POINTS HAVE BEEN ESTABLISHED BASED ON THE FOURTH UNIVERSAL DEFINITIONS OF MYOCARDIAL INFARCTION. THE UPPER REFERENCE LIMIT (URL) OF TROPONIN, DEFINED THE 99TH PERCENTILE OF cTnI DISTRIBUTION IN A REFERENCE POPULATION, HAS BEEN CONFIRMED THE DECISION THRESHOLD FOR VT DIAGNOSIS.Performed By: #### CXSTOOL #### [facility] [address] [place] [address] Dr. Ramsey Mcrae69 ng/wGFrhhtu07-70Lgn [facility] HospitalComment on above: Performed By: #### CXSTOOL #### [facility] [address] [place] [address] Dr. Ramsey Eller AUTO DIFFon [id number] #0.0 103/ulNormal0.0-0.1The [facility] HospitalComment on above:Performed By: #### CBC #### [facility] [address] [place] [address] Dr. Ramsey SanchezBasophils/100 WBC (Bld)0.2 %Normal0.2-2.0[facility] Comment on above:Performed By: #### CBC #### [facility] [address] [place] [address] Dr. Ramsey Ortiz #0.0 103/ulNormal0.0-0.7The [facility] HospitalComment on above: Performed By: #### CBC #### [facility] [address] [place] [address] Dr. Ramsey Canoosinophils/100 WBC (Bld)0.1 %Critically low0.9-7.0The [facility] HospitalComment on above:Performed By: #### CBC #### [facility] [address] [place] [address] Dr. Ramsey Canorythrocyte distribution width (RBC) [Ratio]14.0 %Fpsqoa19.0-15.[address] [facility] HospitalComment on above:Performed By: #### CBC #### [facility] [address] [address] [address] Ramsey SanchezHematocrit (Bld) [Volume fraction]45.4 %Cglwrx89.0-54.0The [facility] HospitalComment on above:Performed By: #### CBC #### [facility] [address] [place] [address] Dr. Ramsey SanchezHemoglobin (Bld) [Mass/Vol]14.4 g/dIIlqssb25.0-18.0The [facility] HospitalComment on above:Performed By: #### CBC #### [facility] [address] [place] [address] Dr. Ramsey Nowak #0.08 10e3/ulCritically high0.00-0.03The [facility] Comment on above:Performed By: #### CBC #### [facility] [address] [place] [address] Dr. Ramsey Nowak %0.9 %Critically high0.0-0.5The [facility] HospitalComment on above:Performed By: #### CBC #### [facility] [address] [place] [address] Dr. Ramsey Damon #1.6 103/ulNormal1.2-3.8The [facility] HospitalComment on above:Performed By: #### CBC #### [facility] [address] [place] [address] Dr. Ramsey Greenwoodhocytes/100 WBC (Bld)17.9 %Critically low20.5-60.0The [facility] HospitalComment on above:Performed By: #### CBC #### [facility] [address] [place] [address] Dr. Ramsey MurrietaUAL DIFF REQNONormalThe [facility] St[facility] HospitalComment on above: Performed By: #### CBC #### [facility] [address] [place] [address] Dr. Ramsey Hicks (RBC) [Entitic mass]29.8 opByanvc04.9-34.0The [facility] HospitalComment on above:Performed By: #### CBC #### [facility] [address] [place] [address] Dr. Ramsey Enriquez (RBC) [Mass/Vol]31.7 g/iFPyhcjq73.9-35.2The [facility] HospitalComment on above:Performed By: #### CBC #### [facility] [address] [place] [address] Dr. Ramsey EnriquezV (RBC) [Entitic vol]94.0 iXRsuvzs02.0-94.0The [facility] HospitalComment on above:Performed By: #### CBC #### [facility] [address] [place] [address] Dr. Ramsey Ignacio #0.9 103/ulCritically high0.3-0.8The [facility] Comment on above:Performed By: #### CBC #### [facility] [address] [place] [address] Dr. Ramsey Ervinocytes/100 WBC (Bld)9.6 %Normal1.7-12.0The [facility] Comment on above:Performed By: #### CBC #### [facility] [address] [place] [address] Dr. Ramsey Cooney #6.3 103/ulNormal1.4-6.5The [facility] HospitalComment on above:Performed By: #### CBC #### [facility] [address] [place] [address] Dr. Ramsey Wongophils/100 WBC (Bld)71.3 %Apruqy05.0-75.0The [facility] HospitalComment on above:Performed By: #### CBC #### [facility] [address] [place] [address] Dr. Ramsey Garciaslet mean volume (Bld) [Entitic vol]11.0 fLNormal9.5-13.5The [facility] HospitalComment on above:Performed By: #### CBC #### [facility] [address] [place] [address] Dr. Ramsey Kapadia03 103/vqQzxvtz354-248Uhk [facility] HospitalComment on above: Performed By: #### CBC #### [facility] [address] [place] [address] Dr. Ramsey SanchezRBC4.83 106/ulNormal4.70-6.10The [facility] HospitalComment on above:Performed By: #### CBC #### [facility] [address] [place] [address] Dr. Ramsey SanchezWBC8.9 103/ulNormal4.0-11.0The [facility] HospitalCombeaumont hospital on above: Performed By: #### CBC #### [facility] [address] [place] [address] Dr. Ramsey SanchezLACTATE/LACTIC ACIDon [id number] [Moles/Vol]1.0 mmol/L Normal0.4-2.0The [facility] on above:Performed By: #### CBC #### [facility] [address] [place] [address] Dr. Ramsey SanchezPROF 14(COMP METB)on [id number] [Mass/Vol]3.7 g/dLNormal 3.4-5.0The [facility] on above:Performed By: #### CXSTOOL #### [facility] [address] [place] [address] Dr. Ramsey SanchezAlbumin/Globulin [Mass ratio]0.9 {ratio}NormalThe [facility] on above:Performed By: #### CXSTOOL #### [facility] [address] [place] [address] Dr. Ramsey Mcgrath [Catalytic activity/Vol]68 U/SIeapxi13-304Oor [facility] HospitalCombeaumont hospital on above:Performed By: #### CXSTOOL #### [facility] [address] [place] [address] Dr. Ramsey Mclean [Catalytic activity/Vol]23 U/FZmzjju17-29Goi [facility] HospitalComment on above:Performed By: #### CXSTOOL #### [facility] [address] [address] [address] Ramsey SanchezAnion gap [Moles/Vol]12.6 mmol/LNormalProv[facility] Comment on above:Performed By: #### CXSTOOL #### [facility] [address] [address] [address] Ramsey SanchezAST [Catalytic activity/Vol]21 U/QLmqqtc96-13Qdo [facility] HospitalComment on above:Performed By: #### CXSTOOL #### [facility] [address] [address] [address] Ramsey SanchezBilirubin [Mass/Vol]0.3 mg/dLNormal0.2-1.0The [facility] Comment on above:Performed By: #### CXSTOOL #### [facility] [address] [place] [address] Dr. Ramsey SanchezCalcium [Mass/Vol]8.8 mg/dLNormal8.5-10.1[facility] Comment on above:Performed By: #### CXSTOOL #### [facility] [address] [address] [address] Ramsey SanchezChloride [Moles/Vol]104 mmol/AGbhysx25-219Eqd [facility] Comment on above:Performed By: #### CXSTOOL #### [facility] [address] [address] [address] Ramsey SanchezCO2 [Moles/Vol]26.7 mmol/WBhukeh77.0-32.0The [facility] Comment on above:Performed By: #### CXSTOOL #### [facility] [address] [address] [address] Ramsey SanchezCreatinine [Mass/Vol]1.27 mg/dLNormal0.70-1.30The [facility] HospitalComment on above:Performed By: #### CXSTOOL #### [facility] [address] [address] [address] Mustafa ChangEGFR-AF HAITIAN>60Normal>=60The [facility] HospitalComment on above:Performed By: #### CXSTOOL #### [facility] [address] [address] [address] Ramsey CanoGFR-NON AF CQZAFUDH62 mL/min/1.76m8Ceqaktalqh low>=60The [facility] HospitalComment on above:Performed By: #### CXSTOOL #### [facility] [address] [address] [address] Ramsey SanchezGlobulin (S) [Mass/Vol]3.9 g/dLNoParkview Health Bryan HospitalComment on above:Performed By: #### CXSTOOL #### [facility] [address] [address] [address] Ramsey SanchezGlucose [Mass/Vol]114 mg/dLCritically kokx18-278Cmv [facility] HospitalComment on above:Performed By: #### CXSTOOL #### [facility] [address] [place] [address] Dr. Ramsey SanchezPotassium [Moles/Vol]4.3 mmol/LNormal3.5-5.1The [facility] Comment on above:Performed By: #### CXSTOOL #### [facility] [address] [address] [address] Ramsey SanchezProtein [Mass/Vol]7.6 g/dLNormal6.4-8.2The [facility] Comment on above:Performed By: #### CXSTOOL #### [facility] [address] [address] [address] Ramsey SanchezSodium [Moles/Vol]139 mmol/NGrswtf954-352Wgi [facility] Comment on above:Performed By: #### CXSTOOL #### [facility] [address] [address] [address] Ramsey SanchezUrea nitrogen [Mass/Vol]19.0 mg/dLCritically high7.0-18.0The [facility] HospitalComment on above:Performed By: #### CXSTOOL #### [facility] [address] [address] [address] Ramsey SanchezUrea nitrogen/Creatinine [Mass ratio]15.0 mg/mgNoalThMount St. Mary HospitalComment on above:Performed By: #### CXSTOOL #### [facility] [address] [address] [address] Ramsey SanchezXR CHEST 1 Von [id number] CHEST 1 VXR CHEST 1 V 09/24/2022 [...] Electronically authenticated by: TRACY HIGHTOWER Date: 2022-09-24 23:29NoParkview Health Bryan HospitalCOVID + FLU Quick Testingon [id number]-CoV-2 (COVID-19) RNA MICHELLE+probe Ql (Unsp spec)PositiveNort [employer] Other COVID + FLU Quick TestingNegativeKowloonia [employer] Other POINT OF CARE GLUCOSEon 95-15-0340Gewkaxs [Mass/Vol] 146 mg/dLCritically lfhx87-195Gpg [facility] HospitalComment on above:Performed By: #### CXSTOOL #### [facility] [address] [address] [address] Ramsey SanchezUS ARTERY UP EXT BILon [id number] ARTERY UP EXT BILEXAMINATION: US ARTERY UP [...] Electronically authenticated by: ERWIN FALCON Date: 2022-04-16 17:21NoParkview Health Bryan HospitalLACTOFERRIN FECAL QUANTon 03-67-2007Jvtnubgxpfl, Fecal, Quant. 1.43 ug/mL(g)Normal0.00-7.24[facility] on above:Result Comment: . Baseline (normal) [...] bowel syndrome (IBS).Performed By: #### CXSTOOL #### [facility] [address] [place] [address] Dr. Ramsey Eller AUTO DIFFon [id number] #0.1 103/ulNormal0.0-0.1The [facility] HospitalComment on above:Performed By: #### CBC #### [facility] [address] [place] [address] Dr. Ramsey Kirbysophils/100 WBC (Bld)0.9 %Normal0.2-2.0[facility] Comment on above:Performed By: #### CBC #### [facility] [address] [place] [address] Dr. Ramsey Ortiz #0.3 103/ulNormal0.0-0.7The [facility] HospitalComment on above: Performed By: #### CBC #### [facility] [address] [place] [address] Dr. Ramsey Canoosinophils/100 WBC (Bld)2.6 %Normal0.9-7.0The [facility] Comment on above:Performed By: #### CBC #### [facility] [address] [place] [address] Dr. Ramsey Canorythrocyte distribution width (RBC) [Ratio]13.2 %Jkjwqr03.0-15.[address] [facility] HospitalComment on above:Performed By: #### CBC #### [facility] [address] [address] [address] Ramsey SanchezHematocrit (Bld) [Volume fraction]46.1 %Kupexl95.0-54.0The [facility] HospitalComment on above:Performed By: #### CBC #### [facility] [address] [address] [address] Ramsey SanchezHemoglobin (Bld) [Mass/Vol]14.5 g/iWPutpby40.0-18.0The [facility] HospitalComment on above:Performed By: #### CBC #### [facility] [address] [address] [address] Ramsey Nowak #0.15 10e3/ulCritically high0.00-0.03The [facility] Comment on above:Performed By: #### CBC #### [facility] [address] [place] [address] Dr. Ramsey Nowak %1.3 %Critically high0.0-0.5The [facility] HospitalComment on above:Performed By: #### CBC #### [facility] [address] [address] [address] Ramsey Damon #2.7 103/ulNormal1.2-3.8The [facility] HospitalComment on above:Performed By: #### CBC #### [facility] [address] [address] [address] Ramsey Greenwoodhocytes/100 WBC (Bld)23.0 %Kfppvw93.5-60.0The [facility] HospitalComment on above:Performed By: #### CBC #### [facility] [address] [address] [address] Ramsey MurrietaUAL DIFF REQNONormalThe [facility] HospitalComment on above: Performed By: #### CBC #### [facility] [address] [place] [address] Dr. Ramsey Hicks (RBC) [Entitic mass]31.0 mvLmqgvs97.9-34.0The [facility] HospitalComment on above:Performed By: #### CBC #### [facility] [address] [address] [address] Ramsey nEriquezHC (RBC) [Mass/Vol]31.5 g/dNYmigwx43.9-35.2The [facility] HospitalComment on above:Performed By: #### CBC #### [facility] [address] [address] [address] Ramsey EnriquezV (RBC) [Entitic vol]98.5 fLCritically high80.0-94.0The [facility] HospitalComment on above:Performed By: #### CBC #### [facility] [address] [place] [address] Dr. Ramsey Ignacio #0.9 103/ulCritically high0.3-0.8The [facility] Comment on above:Performed By: #### CBC #### [facility] [address] [place] [address] Dr. Ramsey Ervinocytes/100 WBC (Bld)7.4 %Normal1.7-12.0[facility] Comment on above:Performed By: #### CBC #### [facility] [address] [place] [address] Dr. Ramsey Cooney #7.6 103/ulCritically high1.4-6.5The [facility] Comment on above:Performed By: #### CBC #### [facility] [address] [place] [address] Dr. Ramsey Torresutrophils/100 WBC (Bld)64.8 %Wtxtqn29.0-75.0The [facility] HospitalComment on above:Performed By: #### CBC #### [facility] [address] [place] [address] Dr. Ramsey Garciaslet mean volume (Bld) [Entitic vol]11.5 fLNormal9.5-13.5The [facility] HospitalComment on above:Performed By: #### CBC #### [facility] [address] [place] [address] Dr. Ramsey SanchezPLT243 103/jhJgnyxe811-806Nko [facility] HospitalCombeaumont hospital on above: Performed By: #### CBC #### [facility] [address] [address] [address] Ramsey SanchezRBC4.68 106/ulCritically low4.70-6.10The [facility] on above:Performed By: #### CBC #### [facility] [address] [address] [address] Ramsey SanchezWBC11.7 103/ulCritically high4.0-11.0[facility] on above:Performed By: #### CBC #### [facility] [address] [address] [address] Ramsey SanchezGLYCOHEMOGLOBIN A1Con [id number] RECOMMENDATIONSEE [facility] HospitalCombeaum[facility] hospital on above:Result Comment: ADA RECOMMENDED LIMIT 4.0 - 6.0 ADA THERAPEUTIC TARGET < 7.0 ACTION SUGGESTED > 7.0Performed By: #### A1C #### [facility] [address] [address] [address] Ramsey SanchezGlucose [Mass/Vol]123 mg/dLNoParkview Health Bryan HospitalCombeaumont hospital on above:Performed By: #### A1C #### [facility] [address] [address] [address] Ramsey SanchezHbA1c (Bld) [Mass fraction]5.9 %Normal4.5-6.2[facility] HospitalCombeaumont hospital on above:Performed By: #### A1C #### [facility] [address] [address] [address] Ramsey SanchezLIPID PROFILEon [id number]-HDL RATIO NORMSEE [facility]Combeaum[facility] hospital on above:Result Comment: 3.3 - 4.4 LOW RISK 4.4 - 7.1 AVERAGE RISK 7.1 - 11.0 MODERATE RISK >11.0 HIGH RISKPerformed By: #### CBC #### [facility] [address] [place] [address] Dr. Ramsey SanchezCholesterol [Mass/Vol]121 mg/dLNormal<=200[facility] Comment on above:Performed By: #### CBC #### [facility] [address] [address] [address] Ramsey SanchezCholesterol in HDL [Mass/Vol]30 mg/dLCritically ykn71-17WjkProvidence HospitalComment on above:Performed By: #### CBC #### [facility] [address] [address] [address] Ramsey SanchezCholesterol in LDL [Mass/Vol]47.6 mg/dLNoParkview Health Bryan HospitalComment on above:Performed By: #### CBC #### [facility] [address] [address] [address] Ramsey Lyonsestermary jo.total/Cholesterol in HDL [Mass ratio]4.0 {ratio} NormalProvidence HospitalComment on above:Performed By: #### CBC #### [facility] [address] [address] [address] Ramsey Harris NORMAL> or = 60 mg/dl - LOW CARDIOVASCULAR RISK <40 mg/dl - HIGH CARDIOVASCULAR RISKNoParkview Health Bryan HospitalComment on above:Performed By: #### CBC #### [facility] [address] [address] [address] Ramsey Arevalo CALC NORMALSEE [facility] AkronComment on above:Result Comment: <100 mg/dl OPTIMAL 100 - 129 mg/dl NEAR OR ABOVE OPTIMAL 130 - 159 mg/dl BORDERLINE HIGH 160 - 189 mg/dl HIGH >190 mg/dl VERY HIGH Performed By: #### CBC #### [facility] [address] [address] [address] Ramsey SanchezTriglyceride [Mass/Vol]217 mg/dLCritically high<=150[facility] HospitalComment on above:Performed By: #### CBC #### [facility] [address] [address] [address] Ramsey SrinivasanLDL CALC43.4 mg/dLNoParkview Health Bryan HospitalComment on above: Performed By: #### CBC #### [facility] [address] [address] [address] Ramsey Eduardo PROFILEon [id number] [Mass/Vol]3.9 g/dLNormal3.4-5.[address] [facility] HospitalComment on above:Performed By: #### CBC #### [facility] [address] [place] [address] Dr. Ramsey SanchezAlbumin/Globulin [Mass ratio]1.1 {ratio}NormalThe [facility] HospitalComment on above:Performed By: #### CBC #### [facility] [address] [place] [address] Dr. Ramsey Mcgrath [Catalytic activity/Vol]75 U/THzfnzj17-366Ves [facility] HospitalComment on above:Performed By: #### CBC #### [facility] [address] [place] [address] Dr. Ramsey Mclean [Catalytic activity/Vol]21 U/OLhbtft71-28Qrd [facility] HospitalComment on above:Performed By: #### CBC #### [facility] [address] [place] [address] Dr. Ramsey Wilson [Catalytic activity/Vol]17 U/PFmjusp25-35Ggo [facility] HospitalComment on above:Performed By: #### CBC #### [facility] [address] [place] [address] Dr. Ramsey Pineda, CONJUGATED0.1 mg/dLNormal0.0-0.2The [facility] Comment on above:Performed By: #### CBC #### [facility] [address] [place] [address] Dr. Ramsey Funesirubin [Mass/Vol]0.4 mg/dLNormal0.2-1.0The [facility] Comment on above:Performed By: #### CBC #### [facility] [address] [place] [address] Dr. Ramsey SanchezGlobulin (S) [Mass/Vol]3.5 g/dLNormalThe [facility] HospitalComment on above:Performed By: #### CBC #### [facility] [address] [place] [address] Dr. Yilan ChangProtein [Mass/Vol]7.4 g/dLNormal6.4-8.2The [facility] Comment on above:Performed By: #### CBC #### [facility] [address] [place] [address] Dr. Ramsey ChaidezALBUMIN, RAND URon [id number]<1.3Normal<=30.0The [facility] HospitalComment on above:Performed By: #### MALBR #### [facility] [address] [place] [address] Dr. Ramsey SanchezPROF CHEM 8 (BAS METB)on 91-07-8161Zzxvb gap [Moles/Vol]12.6 mmol/LNormalThe [facility] HospitalComment on above:Performed By: #### CBC #### [facility] [address] [place] [address] Dr. Ramsey SanchezCalcium [Mass/Vol]8.9 mg/dLNormal8.5-10.1The [facility] Comment on above:Performed By: #### CBC #### [facility] [address] [place] [address] Dr. Ramsey SanchezChloride [Moles/Vol]103 mmol/EBvuxja15-913Zul [facility] Comment on above:Performed By: #### CBC #### [facility] [address] [place] [address] Dr. Ramsey SanchezCO2 [Moles/Vol]28.5 mmol/ZDzugim07.0-32.0The [facility] Comment on above:Performed By: #### CBC #### [facility] [address] [place] [address] Dr. Ramsey SanchezCreatinine [Mass/Vol]0.89 mg/dLNormal0.70-1.30The [facility] HospitalComment on above:Performed By: #### CBC #### [facility] [address] [place] [address] Dr. Mustafa ChangEGFR-AF HAITIAN>60Normal>=60The [facility] HospitalComment on above:Performed By: #### CBC #### [facility] [address] [address] [address] Ramsey CanoGFR-NON AF HAITIAN>60Normal>=60The [facility] HospitalComment on above:Performed By: #### CBC #### [facility] [address] [address] [address] Ramsey SanchezGlucose [Mass/Vol]102 mg/oQIsnonq54-766Lyf [facility] Comment on above:Performed By: #### CBC #### [facility] [address] [address] [address] Ramsey SanchezPotassium [Moles/Vol]4.1 mmol/LNormal3.5-5.1The [facility] Comment on above:Performed By: #### CBC #### [facility] [address] [place] [address] Dr. Ramsey SanchezSodium [Moles/Vol]140 mmol/NVzvtyi829-732Psp [facility] Comment on above:Performed By: #### CBC #### [facility] [address] [place] [address] Dr. Ramsey SanchezUrea nitrogen [Mass/Vol]16.0 mg/dLNormal7.0-18.0The [facility] HospitalComment on above:Performed By: #### CBC #### [facility] [address] [place] [address] Dr. Ramsey Curiel nitrogen/Creatinine [Mass ratio]18.0 mg/mgNormalThe [facility] HospitalComment on above:Performed By: #### CBC #### [facility] [address] [place] [address] Dr. Ramsey Beauchamp CULTUREon [id number] CultureFinal reportNormal The [facility] HospitalComment on above:Performed By: #### CXSTOOL #### [facility] [address] [place] [address] Dr. Ramsey Cano coli Shiga Toxin EIANegativeNormalNegativeThe [facility] Comment on above:Performed By: #### CXSTOOL #### [facility] [address] [place] [address] Dr. Ramsey Chapman 1CKettering Health PrebleComment on above:Result Comment: No Salmonella or Shigella recovered.Performed By: #### CXSTOOL #### [facility] [address] [place] [address] Dr. Ramsey Chapman Comment: No Campylobacter species isolated. Salmonella/Shigella ScreenFinal reportSt. Francis HospitalComment on above:Performed By: #### CXSTOOL #### [facility] [address] [place] [address] Dr. Ramsey SanchezVITAMIN D 25 OHon [id number] D 25-OH40.2 ng/mLNSelect Medical Specialty Hospital - CantonComment on above:Performed By: #### VITAD #### [facility] [address] [place] [address] Dr. Ramsey Araiza RANGESSEE [facility] - AkronComment on above: Result Comment: <20 ng/mL Vit D deficient 20 - <30 ng/mL Vit D insufficient 30 - 100 ng/mL Vit D sufficient >100 ng/mL Potential ToxicityPerformed By: #### VITAD #### [facility] [address] [place] [address] Dr. Ramsey Washburn GLUCOSE LABon [id number] [Mass/Vol]120 mg/dLPewp06-649 The Summa HealthComment on above:Performed By: #### [id number] #### [facility] [address] [place] [address], USAGlucose [Mass/Vol]114 mg/gTDtvr91-976Ffp [facility] HealthComment on above:Performed By: #### [id number] #### [facility] [address] [place] [address], USAGlucose [Mass/Vol]136 mg/pGTwsv95-922Vmh [facility] HealthComment on above:Performed By: #### [id number] #### [facility] [address] [place] [address], USABASIC METABOLIC PANELon 58-41-8775Rfdzkkz [Mass/Vol]9.3 mg/dLNormal8.6-10.3The Summa HealthComment on above: Performed By: #### [id number] #### [facility] [address] [place] [address], USAChloride [Moles/Vol]103 mmol/QRrtomf32-916Nrv [facility] HealthComment on above:Performed By: #### [id number] #### [facility] [address] [place] [address], USACO2 [Moles/Vol]27 mmol/LGsqxqo84-43Bqk Sum[facility] HealthComment on above:Performed By: #### [id number] #### [facility] [address] [place] [address], USACreatinine [Mass/Vol]1.04 mg/dLNormal0.70-1.30The Summa HealthComment on above:Performed By: #### [id number] #### [facility] [address] [place] [address], USAGFR/1.73 sq M predicted among blacks MDRD (S/P/Bld) [Vol rate/Area]mL/min/{1.73_m2}Normal>60The [facility] Comment on above:Result Comment: Calculation may not be valid for patients over 70 yearsPerformed By: #### [id number] #### [facility] [address] [place] [address], USAGFR/1.73 sq M predicted among non-blacks MDRD (S/P/Bld) [Vol rate/Area]mL/min/{1.73_m2}Normal>60The [facility] Comment on above:Result Comment: Calculation may not be valid for patients over 70 yearsPerformed By: #### [id number] #### [facility] [address] [place] [address], USAGlucose [Mass/Vol]128 mg/vPCovh58-842Omj [facility] HealthComment on above:Performed By: #### [id number] #### [facility] [address] [place] [address], USAPotassium [Moles/Vol]4.2 mmol/LNormal3.5-5.1The Summa HealthComment on above:Performed By: #### [id number] #### [facility] [address] [place] [address], USASodium [Moles/Vol]139 mmol/RLnoaho670-386Xwi [facility] HealthComment on above:Performed By: #### [id number] #### [facility] [address] [facility] [place] [place] [address], USAUrea nitrogen [Mass/Vol]20 mg/dLNormal7-25The Summa HealthComment on above:Performed By: #### [id number] #### [facility] [address] [address], USACBC COMPLETE BLOOD COUNTon 89-41-9753Conisvqbbrp distribution width (RBC) [Ratio]13.9 %Fzrhca40.5-15.0The [facility]ma HealthComment on above:Performed By: #### [id number] #### [facility] [address] [address], USAHematocrit (Bld) [Volume fraction]44.9 %Fvvkzx79.0-50.0The Summa HealthComment on above:Performed By: #### [id number] #### [facility] [address] [facility] [place] [place] [address], USAHemoglobin (Bld) [Mass/Vol]14.5 g/xHGiilek67.0-17.0The Summa HealthComment on above:Performed By: #### [id number] #### [facility] [address] [facility] [place] [place] [address], [facility] HOSPITALMCH (RBC) [Entitic mass]30.7 qeToalto08.0-33.0The Summa HealthComment on above:Performed By: #### [id number] #### [facility] [address] [place] [address], [facility] HOSPITALMCHC (RBC) [Mass/Vol]32.3 g/fGMpwboa34.0-35.0The Summa HealthComment on above:Performed By: #### [id number] #### [facility] [address] [place] [address], [facility] HOSPITALMCV (RBC) [Entitic vol]95.1 sGUthacv11.0-98.0The Summa HealthComment on above:Performed By: #### [id number] #### [facility] [address] [place] [address], USANucleated RBC/100 WBC (Bld) [Ratio]0 %Normal0-0The Summa HealthComment on above:Performed By: #### [id number] #### [facility] [address] [place] [address], [facility]DI[facility] HOSPITALPLAT IUZ028 10*3/zNPtbxva425-026Qpe [facility] HealthComment on above:Performed By: #### [id number] #### [facility] [address] [place] [address], [facility] HOSPITALRBC (Bld) [#/Vol]4.72 10*6/uLNormal4.20-5.70The [facility]ma HealthComment on above:Performed By: #### [id number] #### [facility] [address] [address], [facility]DI[facility] HOSPITALWBC (Bld) [#/Vol]12.83 10*3/uLHigh4.00-10.60The Summa HealthComment on above:Performed By: #### [id number] #### [facility] [address] [place] [address], [facility] HOSPITALCardiovascular Lab Reporton [id number] Lab ReportUnPremier Health Patient Name: [facility] MR #: [id number] Physician: Margaret Arellano, Department of M.D. Medicine Service Date: 08/30/2019 Division of Birthdate: 1940 Cardiology Room #: 3AB 384292 Adult Cardiovascular Services [place] [address] Cardiovascular Laboratory Report FINAL IMPRESSIONS: 1. 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 2. 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 3. 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 4. 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 Arellano in the [place] office in the next 2 to 4 [...] left common femoral artery was obtained. A 6-Palauan 11 cm sheath was inserted without difficulty. Limited femoral angiography was performed. Bilateral selective coronary angiography was performed using JL4 and JR4 catheters. After reviewing the images, it was elected to proceed with an interventional procedure. A 6-Palauan XB 3.5 guide catheter was advanced over [...] conclude the procedure. Attempts to deploy a 6-Palauan MynxGrip closure device were unsuccessful. Therefore, manual [...] Arellano M.D. Date Trans: 08/30/2019 05:00 P/emmanuelle DN_[id number] cc: Demetrius Cooper MD [address] [address]ckzvvDwcClermont [facility] Hospital GLUCOSE LABon [id number] [Mass/Vol]172 mg/dJHmlp42-939Dfn [facility] HealthComment on above:Performed By: #### [id number] #### [facility] [address] [place] [address], [facility]DIAN HOSPITALGlucose [Mass/Vol]138 mg/fYAvut13-691Cix Sum[facility] HealthComment on above:Performed By: #### [id number] #### [facility] [address] [place] [address], [place] Vital Signs Date TimeVital SignValuePerforming QtkjrvhacNlkcmcod20-53-6465 09:32-0400Body .1 cmFredric Itzkowitz DO Work Phone: [facility] LawnNlyqxbyrnj35-60-3142 09:32-0400Body mass index (BMI) [Ratio]24.63 kg/j7Gdzuqjn Itzkowitz DO Work Phone: [facility] LawnUdmudihqen74-87-5582 09:32-0400Body urpcbn60.13 kgFredric Itzkowitz DO Work Phone: [facility] LawnOvkzahvoat40-78-8852 13:08-0400Body zfyerd63.12 Franklyn Cooper MD Work Phone: [facility]07-28-2025 13:30-0400 Body mass index (BMI) [Ratio]26.65 kg/c9CldcplkMary Schneider MD Work Phone: [facility]07-28-2025 13:30-0400 Body cpyesc37.65 kgMary Schneider MD Work Phone: [address] [place], [place] 0880207-28-2025 13:30-0400 Diastolic blood glolkylt47 mm[Hg]Mary Schneider MD Work Phone: 1(813)800-[facility]07-28-2025 13:30-0400 Systolic blood mm[Hg]Mary Schneider MD Work Phone: [facility]07-10-2025 09:57-0400 Body [degF]Demetrius Cooper MD Work Phone: [facility]07-10-2025 09:57-0400 Body rdcelu80.02 kgDemetrius Cooper MD Work Phone: [facility]07-10-2025 09:57-0400 Diastolic blood xcgkorqv41 mm[Hg]Demetrius Cooper MD Work Phone: [facility]07-10-2025 09:57-0400 Heart rate68 /minSleno Cooper MD Work Phone: [facility]07-10-2025 09:57-0400 Respiratory rate18 /Rosalba Cooper MD Work Phone: 1(009)[address]07-10-2025 09:57-0400 SaO2% (BldA) [Mass fraction]98 %Demetrius Cooper MD Work Phone: 1(355)[address]07-10-2025 09:57-0400 Systolic blood unwhktqg278 mm[Hg]Demetrius Cooper MD Work Phone: 1(031)[address]05-28-2025 13:56-0400 Body fohgjq789.1 cmFredric Itzkowitz DO Work Phone: 1(110)[address] [place], [place] 1487805-28-2025 13:56-0400Body mass index (BMI) [Ratio]24.63 kg/g8Hpglmpp Itzkowitz DO Work Phone: 1(713)[address] [place], [place] 1487805-28-2025 13:56-0400Body .13 kgFredric Itzkowitz DO Work Phone: 1(876)[address] [place], [place] 1487805-21-2025 14:58-0400Body rpyolq733.64 Alexsandra Cooper MD Work Phone: 1(260)[address]05-20-2025 12:00-0400 Diastolic blood wmdpvoaz10 mm[Hg]Demetrius Cooper MD Work Phone: 1(799)[address]05-20-2025 12:00-0400 Heart rate63 /Rosalba Cooper MD Work Phone: 1(457)[address]05-20-2025 12:00-0400 Respiratory rate16 /Rosalba Cooper MD Work Phone: 1(263)[address]05-20-2025 12:00-0400 SaO2% (BldA) [Mass fraction]95 %Demetrius Cooper MD Work Phone: 1(324)[address]05-20-2025 12:00-0400 Systolic blood fzcjpxba344 mm[Hg]Demetrius Cooper MD Work Phone: 1(629)[address]05-20-2025 11:30-0400 Inhaled oxygen flow rate4 L/minSleno Cooper MD Work Phone: [facility]05-20-2025 10:15-0400 Body ocngxr857.1 cmSleno Cooper MD Work Phone: [facility]05-20-2025 10:15-0400 Body qvbarhyllih76.3 [degF]Demetrius Cooper MD Work Phone: [facility]05-20-2025 10:15-0400 Body .13 kgDemetrius Cooper MD Work Phone: [facility]05-15-2025 13:47-0400 Body jhqddu942.1 cmAngela Lowe PA Work Phone: [facility] LawnNvsuqjkelp46-66-8293 13:47-0400Body mass index (BMI) [Ratio]24.63 kg/s2Lsmyub Lowe PA Work Phone: [facility] LawnXcozwjpqmq12-13-3253 13:47-0400Body iwrtjn32.13 kgAngela Lowe PA Work Phone: [facility] LawnQhuwzowlky85-90-5540 13:47-0400Diastolic blood mm[Hg]Missy Lowe PA Work Phone: [facility] LawnDwpolwldsm23-00-5529 13:47-0400Systolic blood iceisvam231 mm[Hg]Missy Lowe PA Work Phone: [facility] LawnRgreamtxhl21-87-2081 13:20-0400Body .1 cmFredric Itzkowitz DO Work Phone: [facility] LawnWxugktoxqo20-19-9732 13:20-0400Body mass index (BMI) [Ratio]24.96 kg/f6Obkqiig Itzkowitz DO Work Phone: [facility] LawnIrjlrhbrqz38-76-6771 13:20-0400Body sqgohz79.04 kgFredric Itzkowitz DO Work Phone: [facility] LawnNdcpkoyrud40-31-5506 13:20-0400Diastolic blood okgtowtb04 mm[Hg]Veena Itzkowitz DO Work Phone: [facility] LawnHyerijgamh94-68-4018 13:20-0400Systolic blood iautylqy13 mm[Hg]Veena Itzkowitz DO Work Phone: [facility] LawnMpsutqqemi09-98-5642 14:55-0400Body ypjega056.1 Alexsandra Cooper MD Work Phone: 1(452)[address]05-13-2025 14:55-0400 Body mass index (BMI) [Ratio]24.6 kg/t1VjchueDemetrius Cooper MD Work Phone: 1(453)[address]05-13-2025 14:55-0400 Body kmnazkboyyg96.8 [degF]Demetrius Cooper MD Work Phone: 1(703)[address]05-13-2025 14:55-0400 Body ahfyct22.13 kgDemetrius Cooper MD Work Phone: 1(452)[address]05-13-2025 14:55-0400 Diastolic blood emzfnlkl93 mm[Hg]Demetrius Cooper MD Work Phone: 1(407)[address]05-13-2025 14:55-0400 Heart rate66 /Rosalba Cooper MD Work Phone: 1(676)60[address]05-13-2025 14:55-0400 Systolic blood hyyspyeb19 mm[Hg]Demetrius Cooper MD Work Phone: 1(673)[address]05-07-2025 21:13-0400 Body tqmxtjgbtqu67.6 [degF]Demetrius Cooper MD Work Phone: 1(191)[address]05-07-2025 21:13-0400 Diastolic blood mtmmdpey00 mm[Hg]Demetrius Cooper MD Work Phone: 1(285)[address]05-07-2025 21:13-0400 Heart rate68 /Rosalba Cooper MD Work Phone: 1(662)002-[address] [place], [place] 6095505-07-2025 21:13-0400 Respiratory rate18 /minSleno Cooper MD Work Phone: 1(897)228-[address] [place], [place] 6095505-07-2025 21:13-0400 SaO2% (BldA) [Mass fraction]96 %Demetrius Cooper MD Work Phone: 1(751)052-[address] [place], [place] 6095505-07-2025 21:13-0400 Systolic blood ccctabxq459 mm[Hg]Demetrius Cooper MD Work Phone: 1(842)[address]05-07-2025 15:13-0400 Body .1 Alexsandra Cooper MD Work Phone: 1(154)75[address]05-07-2025 15:13-0400 Body kgDemetrius Cooper MD Work Phone: 1(480)[address]04-28-2025 13:07-0400 Body atjhqb575.1 cmMary Schneider MD Work Phone: 1(674)908-[address] [place], [place] 7821704-28-2025 13:07-0400 Body mass index (BMI) [Ratio]24.84 kg/k7HjwfnvuMary Schneider MD Work Phone: 1(362)738-[address] [place], [place] 7821704-28-2025 13:07-0400 Body mqqtjlufjsv60.8 [degF]Mary Schneider MD Work Phone: 1(757)437-[address] [place], [place] 7821704-28-2025 13:07-0400 Body dpwqhy49.72 kgMary Schneider MD Work Phone: 1(054)306-[address] [place], [place] 7821704-28-2025 10:14-0400 Body vhxnoj855.56 Alexsandra Cooper MD Work Phone: 1(879)433-23[facility]04-28-2025 10:14-0400 Body mass index (BMI) [Ratio]25.7 kg/i6AgcsgaDemetrius Cooper MD Work Phone: 1(553)[address]04-28-2025 10:14-0400 Body cflkof81.03 kgDemetrius Cooper MD Work Phone: 1(068)620-[address] [place], [place] 6095504-28-2025 10:14-0400 Diastolic blood exbcrbmo68 mm[Hg]Demetrius Cooper MD Work Phone: 1(072)[address] [place], [place] 5308604-28-2025 10:14-0400 Heart rate76 /Rosalba Cooper MD Work Phone: 1(401)[address] [place], [place] 5308604-28-2025 10:14-0400 SaO2% (BldA) [Mass fraction]98 %Demetrius Cooper MD Work Phone: 1(638)[address] [place], [place] 5308604-28-2025 10:14-0400 Systolic blood ybddskmb237 mm[Hg]Demetrius Cooper MD Work Phone: 1(816)[address] [place], [place] 5308604-09-2025 09:49-0400 Body grfgopbfvle76.5 [degF]Demetrius Cooper MD Work Phone: 1(421)[address] [place], [place] 5308604-09-2025 09:49-0400 Body nkligx51.12 kgDemetrius Cooper MD Work Phone: 1(998)[address] [place], [place] 5308604-09-2025 09:49-0400 Diastolic blood tlibnufq11 mm[Hg]Demetrius Cooper MD Work Phone: 1(209)[address] [place], [place] 5308604-09-2025 09:49-0400 Heart rate94 /Rosalba Cooper MD Work Phone: 1(247)[address] [place], [place] 5308604-09-2025 09:49-0400 Respiratory rate20 /Rosalba Cooper MD Work Phone: 1(631)[address] [place], [place] 5308604-09-2025 09:49-0400 SaO2% (BldA) [Mass fraction]98 %Demetrius Cooper MD Work Phone: 1(290)[address] [place], [place] 5308604-09-2025 09:49-0400 Systolic blood afputico830 mm[Hg]Demetrius Cooper MD Work Phone: 1(476)[address] [place], [place] 5308604-07-2025 12:53-0400 Body hbocgp315.64 cmSleno Cooper MD Work Phone: 1(527)[address] [place], [place] 5308604-07-2025 11:36-0400 Body glpfwjhabhi82 [degF]Demetrius Cooper MD Work Phone: 1(347)1965[address]04-07-2025 11:36-0400 Diastolic blood vdrkumwu96 mm[Hg]Demetrius Cooper MD Work Phone: 1(084)[address] [place], [place] 5308604-07-2025 11:36-0400 Heart rate76 /Rosalba Cooper MD Work Phone: 1(676)[address] [place], [place] 5308604-07-2025 11:36-0400 Respiratory rate18 /Rosalba Cooper MD Work Phone: 1(607)[address] [place], [place] 5308604-07-2025 11:36-0400 SaO2% (BldA) [Mass fraction]96 %Demetrius Cooper MD Work Phone: 1(869)[address] [place], [place] 5308604-07-2025 11:36-0400 Systolic blood wmwtozhv021 mm[Hg]Demetrius Cooper MD Work Phone: 1(020)[address] [place], [place] 5308604-07-2025 04:13-0400 Body mlrajz48.9 kgDemetrius Cooper MD Work Phone: 1(773)[address] [place], [place] 5308604-06-2025 19:00-0400 Diastolic blood daiykdqe00 mm[Hg]Demetrius Cooper MD Work Phone: 1(164)[address] [place], [place] 5308604-06-2025 19:00-0400 Heart rate61 /Rosalba Cooper MD Work Phone: 1(242)[address] [place], [place] 5308604-06-2025 19:00-0400 Respiratory rate18 /Rosalba Cooper MD Work Phone: 1(843)[address] [place], [place] 5308604-06-2025 19:00-0400 SaO2% (BldA) [Mass fraction]92 %Demetrius Cooper MD Work Phone: 1(657)[address] [place], [place] 5308604-06-2025 19:00-0400 Systolic blood ecbdikun393 mm[Hg]Demetrius Cooper MD Work Phone: 1(783)[address] [place], [place] 5308604-06-2025 18:04-0400 Body gsghkcrlqwi22.1 [degF]Demetrius Cooper MD Work Phone: 1(268)[address] [place], [place] 5308604-06-2025 16:57-0400 Body msdymr579.56 Alexsandra Cooper MD Work Phone: 1(761)[address] [place], [place] 5308604-06-2025 16:57-0400 Body .6 kgDemetrius Cooper MD Work Phone: 1(880)[address] [place], [place] 5308604-03-2025 08:23-0400 Body oseitk294.64 Alexsandra Cooper MD Work Phone: 1(278)[address] [place], [place] 5308604-03-2025 08:23-0400 Body znzvlcpuhek39.3 [degF]Demetrius Cooper MD Work Phone: 1(021)[address] [place], [place] 5308604-03-2025 08:23-0400 Body .25 kgDemetrius Cooper MD Work Phone: 1(384)[address] [place], [place] 5308604-03-2025 08:23-0400 Diastolic blood cnpgaugf89 mm[Hg]Demetrius Cooper MD Work Phone: 1(449)[address] [place], [place] 5308604-03-2025 08:23-0400 Heart rate90 /Rosalba Cooper MD Work Phone: 1(449)[address] [place], [place] 5308604-03-2025 08:23-0400 Respiratory rate18 /Rosalba Cooper MD Work Phone: 1(857)[address] [place], [place] 5308604-03-2025 08:23-0400 SaO2% (BldA) [Mass fraction]95 %Demetrius Cooper MD Work Phone: 1(455)[address] [place], [place] 5308604-03-2025 08:23-0400 Systolic blood mm[Hg]Demetrius Cooper MD Work Phone: 1(285)[address] [place], [place] 5308604-02-2025 09:18-0400 Body xflexb67.4 Franklyn Cooper MD Work Phone: 1(061)[address] [place], [place] 5308603-27-2025 15:40-0400 Body .64 Alexsandra Cooper MD Work Phone: 1(614)[address] [place], [place] 5308603-27-2025 08:25-0400 Body mdrjsifrefr53.8 [degF]Demetrius Cooper MD Work Phone: 1(319)[address] [place], [place] 5308603-27-2025 08:25-0400 Diastolic blood mm[Hg]Demetrius Cooper MD Work Phone: 1(924)[address] [place], [place] 5308603-27-2025 08:25-0400 Heart rate68 /Rosalba Cooper MD Work Phone: 1(419)[address] [place], [place] 5308603-27-2025 08:25-0400 Respiratory rate18 /Rosalba Cooper MD Work Phone: 1(171)[address] [place], [place] 5308603-27-2025 08:25-0400 SaO2% (BldA) [Mass fraction]94 %Demetrius Cooper MD Work Phone: 1(349)[address] [place], [place] 5308603-27-2025 08:25-0400 Systolic blood lfmojpwk129 mm[Hg]Demetrius Cooper MD Work Phone: 1(452)[address] [place], [place] 5308603-26-2025 09:28-0400 Body nwoedq83.1 kgDemetrius Cooper MD Work Phone: 1(551)[address] [place], [place] 5308603-26-2025 09:16-0400 Body .1 kgDemetrius Cooper MD Work Phone: 1(554)[address] [place], [place] 5308603-26-2025 09:16-0400 Diastolic blood jexphwox91 mm[Hg]Demetrius Cooper MD Work Phone: 1(922)[address] [place], [place] 5308603-26-2025 09:16-0400 Heart rate77 /Rosalba Cooper MD Work Phone: 1(011)[address] [place], [place] 5308603-26-2025 09:16-0400 Respiratory rate18 /Rosalba Cooper MD Work Phone: 1(959)[address] [place], [place] 5308603-26-2025 09:16-0400 SaO2% (BldA) [Mass fraction]97 %Demetrius Cooper MD Work Phone: 1(763)[address] [place], [place] 5308603-26-2025 09:16-0400 Systolic blood jehrztou826 mm[Hg]Demetrius Cooper MD Work Phone: 1(011)[address] [place], [place] 5308603-20-2025 09:58-0400 Body bctmba297.64 Alexsandra Cooper MD Work Phone: 1(050)[address] [place], [place] 5308603-20-2025 08:27-0400 Body lllrdizbyoj44.9 [degF]Demetrius Cooper MD Work Phone: 1(478)[address] [place], [place] 5308603-20-2025 08:27-0400 Diastolic blood jcqydxaz24 mm[Hg]Demetrius Cooper MD Work Phone: 1(783)[address] [place], [place] 5308603-20-2025 08:27-0400 Heart rate85 /Rosalba Cooper MD Work Phone: 1(431)[address] [place], [place] 5308603-20-2025 08:27-0400 Respiratory rate18 /Rosalba Cooper MD Work Phone: 1(093)[address] [place], [place] 5308603-20-2025 08:27-0400 SaO2% (BldA) [Mass fraction]95 %Demetrius Cooper MD Work Phone: 1(469)[address] [place], [place] 5308603-20-2025 08:27-0400 Systolic blood mm[Hg]Demetrius Cooper MD Work Phone: 1(171)[address] [place], [place] 5308603-14-2025 16:29-0400 Body hilffd013.64 Alexsandra Cooper MD Work Phone: 1(203)[address] [place], [place] 5308603-13-2025 08:28-0400 Body .1 [degF]Demetrius Cooper MD Work Phone: 1(428)[address] [place], [place] 5308603-13-2025 08:28-0400 Body buzypj08.2 kgDemetrius Cooper MD Work Phone: 1(817)[address] [place], [place] 5308603-13-2025 08:28-0400 Diastolic blood ozwaeahb46 mm[Hg]Demetrius Cooper MD Work Phone: 1(117)[address] [place], [place] 5308603-13-2025 08:28-0400 Heart rate62 /Rosalba Cooper MD Work Phone: 1(966)[address]03-13-2025 08:28-0400 Respiratory rate18 /Rosalba Cooper MD Work Phone: 1419)[address] [place], [place] 5308603-13-2025 08:28-0400 SaO2% (BldA) [Mass fraction]95 %Demetrius Cooper MD Work Phone: 1419)[address] [place], [place] 5308603-13-2025 08:28-0400 Systolic blood cfzdlehy309 mm[Hg]Demetrius Cooper MD Work Phone: 1(419)[address] [place], [place] 5308603-12-2025 08:23-0400 Body eyzceafetav22.6 [degF]Demetrius Cooper MD Work Phone: 1(918)[address] [place], [place] 5308603-12-2025 08:23-0400 Body firakj61.48 kgDemetrius Cooper MD Work Phone: 1(610)[address] [place], [place] 5308603-12-2025 08:23-0400 Diastolic blood fckfbzip65 mm[Hg]Demetrius Cooper MD Work Phone: 1(748)[address] [place], [place] 5308603-12-2025 08:23-0400 Heart rate64 /Rosalba Cooper MD Work Phone: 1(923)[address] [place], [place] 5308603-12-2025 08:23-0400 Respiratory rate20 /Rosalba Cooper MD Work Phone: 1(595)[address] [place], [place] 5308603-12-2025 08:23-0400 SaO2% (BldA) [Mass fraction]96 %Demetrius Cooper MD Work Phone: 1(452)[address] [place], [place] 5308603-12-2025 08:23-0400 Systolic blood mvdysgqk902 mm[Hg]Demetrius Cooper MD Work Phone: 1(513)[address] [place], [place] 5308603-06-2025 10:18-0500 Body gnatnp51.38 kgDemetrius Cooper MD Work Phone: 1(736)[address] [place], [place] 5308603-06-2025 08:46-0500 Body wchtsssqcgy61.8 [degF]Demetrius Cooper MD Work Phone: 1(786)[address]03-06-2025 08:46-0500 Body rtoqbo30.84 kgDemetrius Cooper MD Work Phone: 1(874)[address]03-06-2025 08:46-0500 Diastolic blood qdgalgnn23 mm[Hg]Demetrius Cooper MD Work Phone: 1(168)[address] [place], [place] [id number] 08:46-0500 Heart rate68 /Rosalba Cooper MD Work Phone: 1(729)[address] [place], [place] [id number] 08:46-0500 Respiratory rate20 /Rosalba Cooper MD Work Phone: 1(258)[address] [place], [place] [id number] 08:46-0500 SaO2% (BldA) [Mass fraction]97 %Demetrius Cooper MD Work Phone: 1(873)[address] [place], [place] [id number] 08:46-0500 Systolic blood zziblnsa257 mm[Hg]Demetrius Cooper MD Work Phone: 1(341)[address] [place], [place] [id number] 08:50-0500 Body .64 cmSleno Cooper MD Work Phone: 1(520)[address] [place], [place] [id number] 14:33-0500 Diastolic blood dbzwrygh67 mm[Hg]Demetrius Cooper MD Work Phone: 1(563)[address] [place], [place] [id number] 14:33-0500 Heart rate59 /Rosalba Cooepr MD Work Phone: 1(531)[address]03-03-2025 14:33-0500 Respiratory rate16 /Rosalba Cooper MD Work Phone: 1(382)[address] [place], [place] [id number] 14:33-0500 SaO2% (BldA) [Mass fraction]96 %Demetrius Cooper MD Work Phone: 1(523)[address]03-03-2025 14:33-0500 Systolic blood lhmkofdo177 mm[Hg]Demetrius Cooper MD Work Phone: 1(788)[address]03-03-2025 13:48-0500 Body ofbksbxkoid71.3 [degF]Demetrius Cooper MD Work Phone: 1(512)[address]03-03-2025 10:40-0500 Body osptne853.1 Alexsandra Cooper MD Work Phone: 1(677)[address] [place], [place] 5308603-03-2025 10:40-0500 Body uwnzeq17.11 kgDemetrius Cooper MD Work Phone: 1(636)[address] [place], [place] 5308602-27-2025 16:08-0500 Body .64 Alexsandra Cooper MD Work Phone: 1(452)[address] [place], [place] 5308602-27-2025 08:37-0500 Body xmwduisftwt35.8 [degF]Demetrius Cooper MD Work Phone: 1(967)[address] [place], [place] 5308602-27-2025 08:37-0500 Body illznm93.01 kgDemetrius Cooper MD Work Phone: 1(096)[address] [place], [place] 5308602-27-2025 08:37-0500 Diastolic blood fdypfcan31 mm[Hg]Demetrius Cooper MD Work Phone: 1(764)[address] [place], [place] 5308602-27-2025 08:37-0500 Heart rate64 /Rosalba Cooper MD Work Phone: 1(346)[address] [place], [place] 5308602-27-2025 08:37-0500 Respiratory rate18 /Rosalba Cooper MD Work Phone: 1(616)[address] [place], [place] 5308602-27-2025 08:37-0500 SaO2% (BldA) [Mass fraction]95 %Demetrius Cooper MD Work Phone: 1(907)[address] [place], [place] 5308602-27-2025 08:37-0500 Systolic blood vjnnydyn813 mm[Hg]Demetrius Cooper MD Work Phone: 1(702)[address] [place], [place] 5308602-26-2025 08:41-0500 Body kejczaqjoir98.3 [degF]Demetrius Cooper MD Work Phone: 1(466)[address] [place], [place] 5308602-26-2025 08:41-0500 Body mnczyi84.65 kgDemetrius Cooper MD Work Phone: 1(516)[address] [place], [place] 5308602-26-2025 08:41-0500 Diastolic blood amdquzwa77 mm[Hg]Demetrius Cooper MD Work Phone: 1(205)[address] [place], [place] 5308602-26-2025 08:41-0500 Heart rate61 /Rosalba Cooper MD Work Phone: 1(699)[address] [place], [place] 5308602-26-2025 08:41-0500 Respiratory rate20 /Rosalba Cooper MD Work Phone: 1(287)[address] [place], [place] 5308602-26-2025 08:41-0500 SaO2% (BldA) [Mass fraction]96 %Demetrius Cooper MD Work Phone: 1(926)[address] [place], [place] 5308602-26-2025 08:41-0500 Systolic blood nmaoyman594 mm[Hg]Demetrius Cooper MD Work Phone: 1(578)[address] [place], [place] 5308602-20-2025 11:06-0500 Body .64 cmSleno Cooper MD Work Phone: 1(210)[address] [place], [place] 5308602-20-2025 08:36-0500 Body mpvuobkzgxp49.6 [degF]Demetrius Cooper MD Work Phone: 1(350)[address] [place], [place] 5308602-20-2025 08:36-0500 Body .83 kgDemetrius Cooper MD Work Phone: 1(201)[address] [place], [place] 5308602-20-2025 08:36-0500 Diastolic blood evlmembm43 mm[Hg]Demetrius Cooper MD Work Phone: 1(386)[address] [place], [place] 5308602-20-2025 08:36-0500 Heart rate63 /Rosalba Cooper MD Work Phone: 1(623)[address] [place], [place] 5308602-20-2025 08:36-0500 Respiratory rate18 /Rosalba Cooper MD Work Phone: 1(828)[address] [place], [place] 5308602-20-2025 08:36-0500 SaO2% (BldA) [Mass fraction]95 %Demetrius Cooper MD Work Phone: 1(335)[address]02-20-2025 08:36-0500 Systolic blood lnrvcqun310 mm[Hg]Demetrius Cooper MD Work Phone: 1(048)[address] [place], [place] 5308602-06-2025 14:58-0500 Body fwovgs519.56 cmSleno Cooper MD Work Phone: 1(756)[address] [place], [place] 5308602-06-2025 14:58-0500 Body bduwcdsvorq48.5 [degF]Demetrius Cooper MD Work Phone: 1(639)[address] [place], [place] 5308602-06-2025 14:58-0500 Body kgDemetrius Cooper MD Work Phone: 1(161)[address] [place], [place] 5308602-06-2025 14:58-0500 Diastolic blood djazbwdj25 mm[Hg]Demetrius Cooper MD Work Phone: 1(336)[address] [place], [place] 5308602-06-2025 14:58-0500 Heart rate50 /Rosalba Cooper MD Work Phone: 1(336)[address]02-06-2025 14:58-0500 Respiratory rate20 /Rosalba Cooper MD Work Phone: 1(099)[address] [place], [place] 5308602-06-2025 14:58-0500 SaO2% (BldA) [Mass fraction]95 %Demetrius Cooper MD Work Phone: 1(645)[address] [place], [place] 5308602-06-2025 14:58-0500 Systolic blood cqiyqhit919 mm[Hg]Demetrius Cooper MD Work Phone: 1(379)[address]02-04-2025 14:38-0500 Body cmAlrenny Bell MD Work Phone: [facility]Krmshzhctt04-26-7888 14:38-0500Body mass index (BMI) [Ratio]30.11 kg/j6NdjmenMatteo Bell MD Work Phone: no[facility] CenterXsncucolxu55-61-4098 14:38-0500Body .11 kgMatteo Bell MD Work Phone: [facility] LawnYnlggkprzg48-81-9189 14:38-0500Diastolic blood xawzgixj24 mm[Hg]Matteo Bell MD Work Phone: [facility] LawnPamktjfqhc70-93-1457 14:38-0500Systolic blood jujcfzoo085 mm[Hg]Matteo Bell MD Work Phone: [facility] LawnGdxajhsknn19-80-3362 10:45-0500Body alnway167.64 Alexsandra Cooper MD Work Phone: 1(702)[address]01-29-2025 10:45-0500 Body mass index (BMI) [Ratio]27.6 kg/s4KlkainDemetrius Cooper MD Work Phone: 1(178)[address] [place], [place] 5308601-29-2025 10:45-0500 Body ghioguloerw86.6 [degF]Demetrius Cooper MD Work Phone: 1(471)[address] [place], [place] 5308601-29-2025 10:45-0500 Body yyoijx62.56 kgDemetrius Cooper MD Work Phone: 1(710)[address]01-29-2025 10:45-0500 Diastolic blood vlhlelte31 mm[Hg]Demetrius Cooper MD Work Phone: 1(719)[address] [place], [place] 5308601-29-2025 10:45-0500 Heart rate69 /Rosalba Cooper MD Work Phone: 1(763)[address] [place], [place] 5308601-29-2025 10:45-0500 Respiratory rate20 /Rosalba Cooper MD Work Phone: 1(914)[address]01-29-2025 10:45-0500 Systolic blood ifdmzehi455 mm[Hg]Demetrius Cooper MD Work Phone: 1(461)[address] [place], [place] 5308601-29-2025 09:53-0500 Body lfepiq182.64 Alexsandra Cooper MD Work Phone: 7(542)171[facility]41[facility]01-29-2025 09:53-0500 Body mass index (BMI) [Ratio]27.6 kg/e9FezwevDemetrius Cooper MD Work Phone: 1(419)483-[address] [place], [place] 6095501-29-2025 09:53-0500 Body uuhmvlutflx88.6 [degF]Demetrius Cooper MD Work Phone: 1(693)[address]01-29-2025 09:53-0500 Body yhvuno42.56 kgDemetrius Cooper MD Work Phone: 1(701)[address]01-29-2025 09:53-0500 Diastolic blood mm[Hg]Demetrius Cooper MD Work Phone: 1(716)[address]01-29-2025 09:53-0500 Heart rate69 /Rosalba Cooper MD Work Phone: 1(065)[address]01-29-2025 09:53-0500 Respiratory rate20 /Rosalba Cooper MD Work Phone: 1(403)[address] [place], [place] 5308601-29-2025 09:53-0500 SaO2% (BldA) [Mass fraction]96 %Demetrius Cooper MD Work Phone: 1(124)[address]01-29-2025 09:53-0500 Systolic blood niixuayu255 mm[Hg]Demetrius Cooper MD Work Phone: 1(067)[address]01-20-2025 14:13-0500 Diastolic blood mm[Hg][address] 06-05-2024 14:13-0500Heart rate65 /minC[facility] [address] [place] [address] 06-05-2024 14:13-0500Respiratory rate16 /minCmc [address] [place], [place] 1245701-20-2025 14:13-5367OoQ9% (BldA) [Mass fraction]96 %[address]01-20-2025 14:13-0500Systolic blood nilbjraa550 mm[Hg][address]01-20-2025 12:22-0500Body hfhcoxwuxmi12.2 [degF][address]01-14-2025 11:16-0500Body height 162.6 cmMary Schneider MD Work Phone: 1(246)015-[address] [place], [place] 7821701-14-2025 11:16-0500 Body mass index (BMI) [Ratio]28.89 kg/a6VviuzxpMary Schneider MD Work Phone: 1(494)215-[address] [place], [place] 7821701-14-2025 11:16-0500 Body hkzpsvwkent50.2 [degF]Mary Schneider MD Work Phone: 1(371)3-[address] [place], [place] 7821701-14-2025 11:16-0500 Body dstecp41.34 kgMary Schneider MD Work Phone: 1(043)[address]12-26-2024 10:00-0500 Body gbdjlgsudfp29.7 [degF]Mary Schneider MD Work Phone: 1(531)[address]12-26-2024 10:00-0500 Diastolic blood ffjyeofm94 mm[Hg]Mary Schneider MD Work Phone: 1(818)7-[address] [place], [place] 7821712-26-2024 10:00-0500 Heart rate61 /Guerda Schneider MD Work Phone: 1(271)760-[address] [place], [place] 7821712-26-2024 10:00-0500 Respiratory rate14 /Guerda Schneider MD Work Phone: 1(865)[address]12-26-2024 10:00-0500 SaO2% (BldA) [Mass fraction]95 %Mary Schneider MD Work Phone: 1(261)8-[address] [place], [place] 7821712-26-2024 10:00-0500 Systolic blood lxrouutt393 mm[Hg]Mary Schneider MD Work Phone: 1(558)2-[address] [place], [place] 7821712-26-2024 06:08-0500 Body zecfcv947.6 cmMary Schneider MD Work Phone: 1(883)[address]12-26-2024 06:08-0500 Body mass index (BMI) [Ratio]29.52 kg/l3PrmqnjbMary Schneider MD Work Phone: [facility]12-26-2024 06:08-0500 Body vanqmp37 kgMary Schneider MD Work Phone: [facility]11-22-2024 10:40-0500 Body .6 cmMary Schneider MD Work Phone: [facility]11-22-2024 10:40-0500 Body mass index (BMI) [Ratio]29.18 kg/j2YyyzbccMary Schneider MD Work Phone: [facility]11-22-2024 10:40-0500 Body frcith24.11 kgMary Schneider MD Work Phone: [facility]11-13-2024 10:06-0500 Body acbpgv150.6 cmuLc Ham MD Work Phone: [place] [address]Jbnsrjktdd87-22-4682 10:06-0500Body mass index (BMI) [Ratio]29.7 kg/u2JcsedoLuc Ham MD Work Phone: [place] [address]Ybprpmmqrb99-14-8977 10:06-0500Body ehvqup16.47 kgLuc Ham MD Work Phone: [place] [address]Iehgwcvokd02-68-2334 10:06-0500Diastolic blood wvsuomvg20 mm[Hg]Luc Ham MD Work Phone: [place] [address]Sngqrmicsz80-84-3679 10:06-0500Systolic blood fczwslac655 mm[Hg]Luc Ham MD Work Phone: [place] [address]Qojdduhdtg49-83-2383 14:06-0500Blood Pressure LocationMuella Henderson 740-3575Zjcckk-GotanBarney [facility]'S [facility] Center11-07-2024 14:06-0500Diastolic blood dtgbmymu29 mm[Hg]Inez Bautistaminclive 906-5568Qjpafi-RvewlBarney Children'S Medical Center11-07-2024 14:06-0500Heart rate71 /minMuhammad Sarmini 406-2049Ndruyp-FoavlBarney Children'S Medical Center11-07-2024 14:06-0500Respiratory rate16 /minMuhammad Sarmini 842-4271Ygjdvb-BtyyzBarney Children'S Medical Center11-07-2024 14:06-0500Systolic blood yiuvniki573 mm[Hg]Wiley Lilymini 790-9891Gipngg-YbvrwBarney Children'S Medical Center10-23-2024 09:25-0400Body .6 cmLuc Ham MD Work Phone: 1(332)[address] [place], [place] 9801110-23-2024 09:25-0400Body mass index (BMI) [Ratio]29.87 kg/e4YcycscLuc Ham MD Work Phone: 1(081)[address] [place], [place] 9801110-23-2024 09:25-0400Body dyunab37.93 kgLuc Ham MD Work Phone: 1(164)[address] [place], [place] 9801110-23-2024 09:25-0400Diastolic blood nprygvwi01 mm[Hg]Luc Ham MD Work Phone: 1(719)[address] [place], [place] 9801110-23-2024 09:25-0400Systolic blood owosmvcm575 mm[Hg]Luc Ham MD Work Phone: 1(128)[address] [place], [place] 9801110-02-2024 14:19-0400Body .6 Edgar Ham MD Work Phone: 1(775)[address] [place] [address]-02-2024 14:19-0400Body mass index (BMI) [Ratio]29.87 kg/u2LnimvuLuc Ham MD Work Phone: 1(421)[address] [place] [address]-02-2024 14:19-0400Body .93 kgLuc Ham MD Work Phone: 1(552)[address] [place], [place] [address] [address]Uzedcynkbb90-56-3230 14:19-0400Diastolic blood zviunujv65 mm[Hg]Luc Ham MD Work Phone: 1(541)538[place] [address]-02-2024 14:19-0400Systolic blood qbblbsas739 mm[Hg]Luc Ham MD Work Phone: [facility] LawnRzsntfceih21-49-7252 08:59-0400Body ojiaxa576.6 cmAngela Lowe PA Work Phone: [facility] LawnFqmwrxshxw73-87-2567 08:59-0400Body mass index (BMI) [Ratio]29.7 kg/u0Ljiubn Lowe PA Work Phone: 1(347)[facility] [place], [place] [address]Ksvdgschow49-72-3761 08:59-0400Body mrfeqz89.47 kgAngela Lowe PA Work Phone: 1(622)814-[address] [place], [place] [address]Sifqqoljyc69-68-2769 08:59-0400Diastolic blood mm[Hg]Missy Lowe PA Work Phone: 1(834)725-[address] [place], [place] [address]Lswszxpetz53-18-8175 08:59-0400Systolic blood mm[Hg]Missy Lowe PA Work Phone: 1(702)[facility] [place], [place] [address]Ixlakhzmzw67-03-8212 13:07-0400Body .6 cmLuc Ham MD Work Phone: [facility] LawnOpeeejngkp14-51-4424 13:07-0400Body mass index (BMI) [Ratio]29.52 kg/a9HghbktLuc Ham MD Work Phone: 1(315)[facility]-[address] [place], [place] [address]Kfvbacdnff04-59-5509 13:07-0400Body .02 kgLuc Ham MD Work Phone: 1(786)[address] [place], [place] 9801109-17-2024 13:07-0400Diastolic blood gysrcban92 mm[Hg]Luc Hma MD Work Phone: [facility] LawnTokeaenjia63-41-6219 13:07-0400Systolic blood edjapzib931 mm[Hg]Luc Ham MD Work Phone: [facility] LawnUwbasmrgqy61-55-4440 14:32-0400Blood Pressure [facility] Lilyaditi 893-0008Ehzkix-JbathBarney Children'S Medical Center06-06-2024 14:32-0400Diastolic blood sxdlaywg91 mm[Hg]Wiley Sarmini 325-9160Dovzlf-JxlrbBarney Children'S Medical Center06-06-2024 14:32-0400Heart rate73 /minMuhammad Sarmini 076-6056Gfmett-YmsqxBarney Children'S Medical Center06-06-2024 14:32-0400Respiratory rate18 /minMuhammad Sarmini 647-7033Igokln-Mzrrf[address] [place], [place] 7985506-06-2024 14:32-0400Systolic blood mm[Hg]Wiley Sarmini 404-1645Gvujqq-Gcaig[address] [place], [place] 7985505-03-2024 08:58-0400Blood Pressure LocationBeth Flori 822-4072Naawwm-Xejtb[address] [place], [place] 7985505-03-2024 08:58-0400Body ltqktwlyzsl69.34 [degF]Anjali Flori 330-8329Licstr-Cjeyq[address] [place], [place] 7985505-03-2024 08:58-0400Diastolic blood oixgopwd73 mm[Hg]Anjali Flori 725-9589Pexdxn-Gwyns[address] [place], [place] 7985505-03-2024 08:58-0400Heart rate66 /minBeth Flori 155-7743Qzjand-Mclhx[address] [place], [place] 7985505-03-2024 08:58-0400Systolic blood pxiqovcc704 mm[Hg]Anjali Flori 831-7359Thwckk-Kuyau[address] [place], [place] 7985504-18-2024 13:28-0400Body .64 cmAd[facility]04-18-2024 13:28-0400Body mass index (BMI) [Ratio]28 kg/x0KilkfqohhAdams County Regional Medical Center 09-02-2023 13:28-0400Body zdjpji44.69 kgAdams County Regional Medical Center 09-02-2023 13:28-0400Diastolic blood yvktregh89 mm[Hg][facility]04-18-2024 13:28-0400Heart rate67 /minAdams County Regional Medical Center 09-02-2023 13:28-3802ErS9% (BldA) [Mass fraction]95 %[facility]04-18-2024 13:28-0400Systolic blood uuemvcrn117 mm[Hg][facility]03-12-2024 10:23-0400Body .64 cmAd[facility] County [facility] Center03-12-2024 10:23-0400Body mass index (BMI) [Ratio]27.5 kg/m2 [facility]03-12-2024 10:23-0400Body kqnzpsejkeq06.9 [degF][facility]03-12-2024 10:23-0400Body ogpvbi24.28 kg [facility]03-12-2024 10:23-0400Diastolic blood xzkscung29 mm[Hg][facility]03-12-2024 10:23-0400Heart rate86 /min [facility]03-12-2024 10:23-0400Respiratory rate18 /min [facility]03-12-2024 10:23-9230StP3% (BldA) [Mass fraction]97 %[facility]03-12-2024 10:23-0400Systolic blood sgnmxawh526 mm[Hg][facility]01-15-2024 13:30-0500 Body .64 cmPjeffryjennyfer Boy Other 1calendar Other 01-15-2024 13:30-0500Body mass index (BMI) [Ratio]27.6 kg/j4IhhplGisele Brunson Other 1calendar Other 01-15-2024 13:30-0500Body ghmajy44.57 kgGisele Brunson Other 1calendar Other 01-15-2024 13:30-0500Diastolic blood mesgajdq62 mm[Hg] Gisele Brunson Other [place] [facility] Other 01-15-2024 13:30-6520JgH9% (BldA) [Mass fraction]94 % Gisele Brunson Other [place] [facility] Other 01-15-2024 13:30-0500Systolic blood zedxahbo182 mm[Hg] Gisele Brunson Other [facility] [employer] Other 01-09-2024 12:21-0500Blood Pressure LocationBeth Flori 512-2388Ytiikh-DdrleBarney Children'S Medical Center01-09-2024 12:21-0500Diastolic blood mm[Hg]Anjali Ruby 745-1146Jpuxhr-CprbeBarney Children'S Medical Center01-09-2024 12:21-0500Heart rate88 /minBeth Flori 009-2091Ohgchz-KymmqBarney Children'S Medical Center01-09-2024 12:21-0500Respiratory rate16 /minBeth Flori 204-4732Whbxmx-ZouhjBarney Children'S Medical Center01-09-2024 12:21-0500Systolic blood vucqoolg495 mm[Hg]Anjali Ruby 034-8843Mxwfji-GjuxyBarney Children'S Medical Center11-16-2023 13:15-0500Body eoeyrlieoxx16.11 [degF]Vaishali Pringle MD Work Phone: [facility]11-16-2023 13:15-0500Body faycls01.75 kgKingstonms Pino CASON Work Phone: [facility]11-16-2023 13:15-0500Diastolic blood bptolhzq57 mm[Hg]Vaishali Pringle MD Work Phone: [facility]11-16-2023 13:15-0500Heart rate70 /min Vaishali Pringle MD Work Phone: [facility]11-16-2023 13:15-5879AsF4% (BldA) [Mass fraction]97 %Vaishali Pringle MD Work Phone: [facility]11-16-2023 13:15-0500Systolic blood axdrrjxk641 mm[Hg]Vaishali Pringle MD Work Phone: [facility]10-25-2023 08:53-0400Blood Pressure LocationBeth Flori 574-2703Cgzjzx-Leokj[address] [place], [place] 7985510-25-2023 08:53-0400Body rblphkxcjqu02.16 [degF]Anjalijane StaffordFlori 684-7646Iopiun-Iutsk[address] [place], [place] 7985510-25-2023 08:53-0400Diastolic blood fjwfqkuw29 mm[Hg]Anjalijane StaffordFlori 828-9346Jyqjmi-Iwgnk[address] [place], [place] 7985510-25-2023 08:53-0400Heart rate63 /minBeth Flori 662-3355Ofoxgk-Uknxj[address] [place], [place] 7985510-25-2023 08:53-0400Systolic blood zkpbijwa898 mm[Hg]Anjali Flori 737-8495Buzxma-Mstpz[address] [place], [place] 7985510-12-2023 13:27-0400Blood Pressure LocationBeth Flori 303-1752Porycw-Bbsry[address] [place], [place] 7985510-12-2023 13:27-0400Body dwnzugmtnxv34.06 [degF]Anjali Flori 081-6662Rzlzsy-Ssqfq[address] [place], [place] 7985510-12-2023 13:27-0400Diastolic blood febarpnr21 mm[Hg]Anjali Flori 729-3258Djqijh-Kvjbt[address] [place], [place] 7985510-12-2023 13:27-0400Heart rate85 /minBeth Flori 938-3284Zobzvi-AulzeBarney Children'S Medical Center10-12-2023 13:27-0400Respiratory rate16 /minAnjali Flori 146-1686Qxqpae-PpnvaBarney Children'S Medical Center10-12-2023 13:27-0400Systolic blood kdpjexdo812 mm[Hg]Anjali Staffordmetz 593-9899Kqfcds-WejveBarney Children'S Medical Center09-15-2023 10:15-0400Body srfefn528.64 cmPegjennyfer Brunson Other 1calendar Other 09-15-2023 10:15-0400Body mass index (BMI) [Ratio] 28.24 kg/l2Idrlq Brunson Other 1calendar Other 09-15-2023 10:15-0400Body .38 kgPeflores Brunson Other 1calendar Other 09-15-2023 10:15-0400Diastolic blood yawyxaou53 mm[Hg] Giselejennyfer Brunson Other 1calendar Other 09-15-2023 10:15-4444IeL9% (BldA) [Mass fraction]95 % Gisele Brunson Other 1calendar Other 09-15-2023 10:15-0400Systolic blood jdikwkpg966 mm[Hg] Giselejennyfer Brunson Other 1calendar Other 08-29-2023 09:22-0400Blood Pressure LocationAnjali Staffordmetz 153-4000Rprtta-OxairBarney Children'S Medical Center08-29-2023 09:22-0400Body azduvuyyhjk12.98 [degF]Anjali Ruby 630-4894Pflhzq-HolxfBarney Children'S Medical Center08-29-2023 09:22-0400Diastolic blood tdeeedwc63 mm[Hg]Anjali Ruby 504-8134Crnvlr-XofhkBarney Children'S Medical Center08-29-2023 09:22-0400Heart rate69 /minAnjali Ruby 992-9256Tdagbx-LedblBarney Children'S Medical Center08-29-2023 09:22-0400Systolic blood mm[Hg]Anjali Ruby 729-3184Uofsvv-ByiydBarney Children'S Medical Center05-30-2023 09:45-0400Body nzyzxt980.64 cmPegjennyfer Brunson Other 1calendar Other 143867-69-4293 09:45-0400Body mass index (BMI) [Ratio] 27.92 kg/y1Tzumyflores Brunson Other 1calendar Other 05-30-2023 09:45-0400Body .47 kgPeflores Brunson Other 1calendar Other 05-30-2023 09:45-0400Diastolic blood vicbjojs04 mm[Hg] Gisele Brunson Other 1calendar Other 05-30-2023 09:45-7529YrR1% (BldA) [Mass fraction]95 % Gisele Brunson Other 1calendar Other 05-30-2023 09:45-0400Systolic blood yrmhcyyv150 mm[Hg] Gisele Brunson Other 1calendar Other 05-09-2023 18:14-0400Body syvqorzznqp15.86 [degF]Gordy S[facility]chez [facility]05-09-2023 16:28-0400Body xzcyherutxu466.3 [degF]Gordy Sánchez [facility]05-09-2023 16:28-0400 Diastolic blood xswoegtl47 mm[Hg]Gordy Sánchez [facility]05-09-2023 16:28-0400Heart rate79 /minGordy Sánchez [facility]05-09-2023 16:28-0400 Respiratory rate17 /minGordy Sánchez [facility]05-09-2023 16:28-2350XyG2% (BldA) [Mass fraction]93 %Gordy Sánchez [facility]05-09-2023 16:28-0400 Systolic blood cxfzukcy797 mm[Hg]Gordy Sánchez [facility]05-09-2023 14:10-0400Body vcinsn349.64 cmPamela Aditi Other [place] [employer] Other 05-09-2023 14:10-0400Body mass index (BMI) [Ratio]29.7 kg/d2Pdilru Aditi Other [facility] [employer] Other 05-09-2023 14:10-0400Body lkuxzkiiabd492 [degF]Griselda Pennington Other [facility] [employer] Other 05-09-2023 14:10-0400Body .46 kgPageorgettelyssa Aditi Other [facility] [employer] Other 05-09-2023 14:10-0400Respiratory rate18 /minRicardolyssa Aditi Other 1calendar Other 05-09-2023 14:10-4368GdM4% (BldA) [Mass fraction]93 % Griselda Pennington Other [employer] Other 03-15-2023 10:15-0400Body tjgaio595.64 cmDawon Salazar Other 1calendar Other 03-15-2023 10:15-0400Body mass index (BMI) [Ratio] 30.02 kg/o8Jznzhwon Salazar Other 1calendar Other 03-15-2023 10:15-0400Body edyzww30.37 kgDawon Salazar Other 1calendar Other 03-15-2023 10:15-0400Diastolic blood mm[Hg] Erwin Salazar Other 1calendar Other 03-15-2023 10:15-8061PeZ8% (BldA) [Mass fraction]94 % Erwin Salazar Other 1calendar Other 03-15-2023 10:15-0400Systolic blood beyfsewm341 mm[Hg] Erwin Salazar Other 1calendar Other 07-16-2022 10:25-0400Body swcsui183.64 cmSjorge Garcia Other [employer] Other 07-16-2022 10:25-0400Body xrcejytmuac49.9 [degF] Leti Garcia Other 1calendar Other 07-16-2022 10:25-0400Respiratory rate18 /minSjorge Garcia Other [facility] [employer] Other 07-16-2022 10:25-3143HiL9% (BldA) [Mass fraction]93 % Leti Garcia Other [place] [employer] Other Encounters Encounter DateEncounter TypeCare ProviderFacilityStart: 17-56-0972rzvtxvmlshjoi CooperFacility:[facility]25 [facility] Work Phone: Start: 02-22-2025 End: 06-67-5979kikjklenxmAecmcq E Ross MD Work Phone: [facility] Work Phone: Start: 02-22-2025 End: 60-49-9134Kcfkukm encounter procedureBecky Crouch APRN-[facility] Amb[facility] Work Phone: Start: 44-55-3167isbgjlamzsLBLDSSelect Medical OhioHealth Rehabilitation Hospitaltart: 02-06-2025 End: 55-42-8128pxxrdlcsknSIJX [facility]: 01-18-2025 End: 59-55-3521Mzlfse outpatient visit 15 minutesFredric H Itzkowitz DO Work Phone: [facility] Surgical AssociatesComment on above:Esophageal dysphagia (Primary Dx)Start: 01-18-2025 End: 59-81-9917bbwsuajnqjTTIQRXZ H ITZKOWITZNot AvailableStart: 01-08-2025 End: 06-44-6176Wnfyfe outpatient visit 15 minutesFredric H Itzkowitz DO Work Phone: [facility] AssociatesComment on above:Esophageal dysphagia (Primary Dx); Carcinoma of oropharynx (HCC)Start: 01-08-2025 End: 70-78-9346lrolfvmmjhVVVYRIR Jane Alfonso AvailableStart: 12-26-2024 Registered [facility] Work Phone: Start: 12-26-2024 End: 71-90-0215wsjrndgtxuQsfuuc E Ross MD Work Phone: [facility] Work Phone: Start: 12-26-2024 End: 87-04-2761Yvnvhtv encounter procedureJaniashi Crouch RAYSHAWN-[facility] Work Phone: Start: 83-54-4833fcqmxrwloqJPLFThe Surgical Hospital at Southwoodstart: 12-11-2024 End: 51-41-1561Qracrc outpatient visit 15 minutesMaroxy Schneider MD Work Phone: [facility] CenterComment on above: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); G tube feedings (Multi); At risk for malnutritionStart: 12-11-2024 End: 50-41-9103vibrfnszfmUFWNACF N STEVKnox Community Hospitaltart: 12-05-2024 End: 06-45-7025hgleswingxDDIAThe Surgical Hospital at Southwoodstart: 11-27-2024 End: 86-43-2359zvlvyhwmraViggvg E. RossFacility:[facility] BellevueStart: 11-23-2024 Registered Suha [facility]ustin [facility] Work Phone: Start: 11-23-2024 End: 61-95-2646fuqmclgubtRraqfs E Ross MD Work Phone: [facility] Work Phone: Start: 11-23-2024 End: 41-97-8023Iibdvzl encounter procedurerick Faustin MD-[facility] Work Phone: Start: 11-23-2024 End: 97-22-8167Tbnzces encounter procedureDebora Campbell [facility] CareStart: 11-23-2024 End: 91-12-5457hoahoivcolWmfocn E Ross MD Work Phone: [facility] Work Phone: Start: 18-68-3521Xpb-patient / Non-visitDebora Campbell [facility] Palliative Work Phone: Start: 11-21-2024 End: 28-21-3166rzsnmzjbfzXhrddi E. RossFacility:[facility] BellevueStart: 2024 End: 55-77-0053vpcrhzwevpWADarius Patecility:[facility]vueStart: 10-12-2024 End: 39-97-2744kddckoibauJYHumza Patecility:FT FM BellevueStart: 10-11-2024 End: 31-72-1335Yfdbfk follow up visit related to original pxFredric H Itzkowitz DO Work Phone: noms ST GENSComment on above:Esophageal dysphagia (Primary Dx); Carcinoma of oropharynx (CMS/HCC)Start: 10-11-2024 End: 84-29-3253yqbfcmoenaUWLQCGK H ITZKOWITZNot AvailableStart: 10-03-2024 End: 97-91-1493Kqpjrjwj Result EncounterFredric H Itzkowitz DO Work Phone: noms External Department UnsolicitedStart: 10-03-2024 End: 87-98-0808Xxpkrkkq Result EncounterFredric H Itzkowitz DO Work Phone: noms External Department UnsolicitedStart: 10-03-2024 End: 25-80-7056Klowzjdrn to same day surgery centerFredric Itzkowitz DO-[facility] CampusStart: 10-03-2024 End: 90-18-6553llzogpkgljIdryyit ItzkowitzFacility:[facility] Hospitaltart: 09-28-2024 End: 84-81-6370tufqmwgfehXL Demetrius CooperFacility:FT tart: 09-28-2024 End: 37-88-4466Hpdpkw flowsheetAngela Lowe PA Work Phone: aNA BELLEVUEStart: 09-28-2024 End: 62-40-9377Whcnfo flowsheetAngela Lowe PA Work Phone: aNA BELLEVUEStart: 09-28-2024 End: 54-94-4281Glyxdp outpatient visit 15 minutesAngela Lowe PA Work Phone: ana BELLEVUEComment on above:Vertigo (Primary Dx); Lumbar radiculopathy; Chronic bilateral low back pain, unspecified whether sciatica present; Degenerative disc disease, cervical; Migraine without aura and without status migrainosus, not intractable (CMS/HCC); PolyneuropathyStart: 09-28-2024 End: 29-80-7561opieiqfxjbCAJHFT LOWENot AvailableStart: 09-27-2024 End: 30-70-7732Ppmzzi outpatient new 45 minutesFredric H Itzkowitz DO Work Phone: noms ST GENSComment on above:Esophageal dysphagia (Primary Dx)Start: 09-27-2024 End: 40-99-9569ifiijlmkwnYVOGBXE H ITZKOWITZNot AvailableStart: 09-26-2024 End: 82-82-5034pmbdirrcefSpjliu E Ross MD Work Phone: [facility] Work Phone: Start: 09-26-2024 End: 34-59-6464Rsdiigh encounter procedureSleno Cooper MD Work Phone: [facility] Palliative Work Phone: Start: 54-93-5304Knhjbvkitz Philly Cooper MD Work Phone: [facility]-Cancer Center Acute Work Phone: Start: 09-20-2024 End: 37-38-7083Okgbvigcg department patient visitSleno Cooper MD Work Phone: [facility]-Emergency Room Work Phone: Start: 09-14-2024 End: 83-14-7403qvuflajqqkTQ Demetrius CooperFacility:FT FM BellevueStart: 09-11-2024 End: 94-86-2381Cxqjbs outpatient visit 15 minutesMaroxy Schneider MD Work Phone: [facility] CenterComment on above: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); Dysphagia, unspecified typeStart: 09-11-2024 End: 83-18-2377ldvtfdlmwuJIYUTCU N [facility]ertart: 09-11-2024 End: 90-86-0901Nbdrfcz encounter procedureSleno Cooper MD Work Phone: [facility] Work Phone: Start: 43-58-3675Phpzdbowia RecurringDemetrius Cooper MD Work Phone: [facility] Work Phone: Start: 09-07-2024 End: 01-30-0710Xoyzywz encounter procedureSleno Cooper MD Work Phone: [facility] Work Phone: Start: 09-04-2024 End: 16-65-9349pbiqsjvbvyNOEO [facility] Hospitaltart: 08-30-2024 End: 36-24-0915Lsr Drop offSleno Cooper [facility] Start: 08-30-2024 End: 96-58-4036bjhtlquocpXliqdm E. RossFacility:FTMCStart: 08-24-2024 End: 03-71-1995vfcooldqnfDgobzj E. RossFacility:FT FM BellevueStart: 08-23-2024 End: 44-80-7385Dfpeabp encounter procedureSleno Cooper MD Work Phone: [facility] Work Phone: Start: 08-22-2024 End: 88-35-4764bwagktwzitRivqfb E. RossFacility:CD:[id number]: 08-21-2024 Non-patient / Non-visitSleno Cooper MD Work Phone: [facility] Work Phone: Start: 55-12-1462Bhm-patient / Non-visitSleno Cooper MD Work Phone: [facility] Infect Dis Work Phone: Start: 61-40-5971mevifbbunsSsfnssoho M [place] Facility:[facility]tart: 08-20-2024 End: 06-13-5402Rvecfbayhe and management of inpatientSleno Cooper MD Work Phone: [facility]-[address] [place] Med Surg Work Phone: Start: 49-81-8398Mrbiauracy RecurringDemetrius Cooper MD Work Phone: [facility] Work Phone: Start: 76-78-5769Ion-patient / Non-visitSleno Cooper MD Work Phone: [facility] Work Phone: Start: 08-85-0773awbudhgofxXpzrtonv R [place] Facility:[facility] Hospitaltart: 66-34-0218Sylpnokfjn Recurring Demetrius Cooper MD Work Phone: [facility]-Speech Therapy Cancer CenterStart: 03-16-3461Tur-patient / Non-visitSleno Cooper MD Work Phone: [facility] Palliative Work Phone: Start: 11-47-1867Zlzydctbni Philly Cooper MD Work Phone: [facility] [place] [facility] Work Phone: Start: 08-16-2024 End: 65-88-2293Tjdrjth encounter procedureSleno Cooper MD Work Phone: [facility]at CareStart: 08-16-2024 End: 73-97-9107xuzkprggzzFchmzm E Ross MD Work Phone: [facility] Work Phone: Start: 22-02-3944Wrr-patient / Non-visitSleno Cooper MD Work Phone: [facility] [employer]-Heart Rhythm ClinicStart: 70-24-6416Olg-patient / Non-visitSleno Cooper MD Work Phone: [facility] Work Phone: Start: 36-60-7502Irvfgaeoou Philly Cooper MD Work Phone: [facility]-Speech Therapy Cancer CenterStart: 08-09-2024 End: 90-61-9873Dubhgpe encounter procedureSleno Cooper MD Work Phone: [facility] Work Phone: Start: 58-44-1534Nmc-patient / Non-visitSleno Cooper MD Work Phone: [facility] Phys[facility] Palliative Work Phone: Start: 08-09-2024 End: 15-60-4737Mdcysbx encounter procedureSleno Cooper MD Work Phone: [facility] CareStart: 08-09-2024 End: 09-74-9458pcwwqrjoblFzfdvk E Ross MD Work Phone: [facility] Work Phone: Start: 31-54-2445Wye-patient / Non-visitSleno Cooper MD Work Phone: [phone] [place] Amb[facility] Work Phone: Start: 21-05-1063Lnuimeppnp Philly Cooper MD Work Phone: [phone] HospitalSpeech Therapy Cancer CenterStart: 56-24-5959Snj-patient / Non-visitSleno Cooper MD Work Phone: [facility] Work Phone: Start: 59-51-5140Xdp-patient / Non-visitSleno Cooper MD Work Phone: [phone] HospitalHeart Rhythm ClinicStart: 08-02-2024 End: 79-92-8212Skksqgk encounter procedureSleno Cooper MD Work Phone: [phone] CareStart: 08-02-2024 End: 52-58-3713dsopyjgaoxClxbkp E Ross MD Work Phone: [phone] Work Phone: Start: 62-14-6129Zfc-patient / Non-visitSleno Cooper MD Work Phone: [phone] Amb[facility] Work Phone: Start: 36-89-6692Raiiexvmyk Philly Cooper MD Work Phone: [phone] HospitalSpeech Therapy Cancer CenterStart: 65-32-7546Cni-patient / Non-visitSleno Cooper MD Work Phone: [facility] Work Phone: Start: 07-26-2024 End: 69-09-2830jbrqajedpnQFUCHR VARGAS VNot AvailableStart: 58-51-4165Rdgcgoqfof Philly Cooper MD Work Phone: [facility] [place] [facility] Work Phone: Start: 11-44-4092Tnv-patient / Non-visitSleno Cooper MD Work Phone: [facility] Palliative Work Phone: Start: 07-26-2024 End: 13-10-4373Oulrvpxf ReferredDemetrius Cooper MD Work Phone: [facility] Palliat CareStart: 07-26-2024 End: 28-85-1759gxerkkgmprHvijvi E Ross MD Work Phone: [facility] Work Phone: Start: 07-26-2024 End: 23-35-5571Ovuxuxj encounter procedureSleno Cooper MD Work Phone: [facility] Work Phone: Start: 61-23-5215Wmf-patient / Non-visitSleno Cooper MD Work Phone: [facility] [employer]-Heart Rhythm ClinicStart: 86-85-8912Kmb-patient / Non-visitSleno Cooper MD Work Phone: [facility] Work Phone: Start: 28-11-8368htnxslwszvJsogvcx [place] Facility:[facility] Hospitaltart: 31-23-0523Lpsqywyync Recurring Demetrius Cooper MD Work Phone: [facility]-Speech Therapy Cancer CenterStart: 72-18-7017Ohz-patient / Non-visitSleno Cooper MD Work Phone: [facility] Ambulatory Work Phone: Start: 07-20-2024 End: 50-51-7775Wmbztpn encounter procedureSleno Cooper MD Work Phone: [facility] Ambulatory Work Phone: Start: 07-19-2024 End: 70-15-8633uzlturvfqrWRCRBBH [facility] Hospitaltart: 17-00-9148Mls-patient / Non-visitSleno Cooper MD Work Phone: [facility]-Heart Rhythm ClinicStart: 07-19-2024 End: 06-24-5478Tiwdhtsp ReferredDemetrius Cooper MD Work Phone: [facility] CareStart: 07-19-2024 End: 25-67-9263Svlflly encounter procedureSleno Cooper MD Work Phone: [facility]Start: 07-19-2024 End: 45-24-6130zoxcpmwwjqXzpiasuaw M McGraBurke Rehabilitation Hospitalcility:[facility] Hospitaltart: 07-17-2024 End: 39-43-2005Jquprfrb Result EncounterMatteo Melo MD Work Phone: noms External Department UnsolicitedStart: 07-17-2024 End: 12-40-4034Zprmrijt Result EncounterMatteo Bell MD Work Phone: noms External Department UnsolicitedStart: 07-17-2024 Registered Philly Cooper MD Work Phone: [facility] [place] [facility] Work Phone: Start: 07-17-2024 End: 64-75-7792Svtdwyrlz to same day surgery centerSleno Cooper MD Work Phone: [facility]-Surgery Center Main CampusStart: 07-17-2024 End: 23-09-7352iaqyxxznrrWitotk E Ross MD Work Phone: [facility] Work Phone: Start: 80-22-2512Idw-patient / Non-visitSleno Cooper MD Work Phone: [facility] Ambulatory Work Phone: Start: 02-02-1770Gan-patient / Non-visitSleno Cooper MD Work Phone: [facility] Ambulatory Work Phone: Start: 48-11-8892Mck-patient / Non-visitSleno Cooper MD Work Phone: [facility] HospitalHeart Rhythm ClinicStart: 11-89-1164Ttymdoujzm Philly Cooper MD Work Phone: [facility] Acute Work Phone: Start: 13-33-3569Zhh-patient / Non-visitSleno Cooper MD Work Phone: [facility] Work Phone: Start: 07-12-2024 End: 33-12-6533Ywthgpm encounter procedureSammarek Cooper MD Work Phone: [facility] Work Phone: Start: 07-12-2024 End: 69-72-9881gxcjjgyvalKroxpj E Ross MD Work Phone: [facility] Work Phone: Start: 97-09-9307Gmc-patient / Non-visitSleno Cooper MD Work Phone: [facility] Work Phone: Start: 07-10-2024 End: 53-91-3233ozqyefgcyhJCBQ [facility] Hospitaltart: 73-31-3768Onm-patient / Non-visitSleno Cooper MD Work Phone: [facility] Work Phone: Start: 14-81-5775Bxg-patient / Non-visitSleno Cooper MD Work Phone: [facility] HospitalHeart Rhythm ClinicStart: 31-28-6833Pva-patient / Non-visitSleno Cooper MD Work Phone: [facility] Palliative Work Phone: Start: 07-06-2024 End: 49-23-2460Dpsegxgw Magali Cooper MD Work Phone: [facility] Palliat CareStart: 07-06-2024 End: 72-75-7253Qepcpts encounter procedureSleno Cooper MD Work Phone: [facility] PalliativeStart: 07-06-2024 End: 90-35-0152cksmoeexgaLfctil E Ross MD Work Phone: [facility] Work Phone: Start: 21-19-1797Boi-patient / Non-visitSleno Cooper MD Work Phone: [facility] Work Phone: Start: 07-04-2024 End: 09-04-8673ivmqwaqgmfJpraxx E. RossFacility:FT FM BellevueStart: 07-03-2024 End: 20-76-7182Nkb Drop offMhd Ramin Faustin [facility] Start: 07-03-2024 End: 52-43-6791Snakzfop Magali Cooper MD Work Phone: [facility]-Surgery [facility] HospitalStart: 07-03-2024 End: 95-67-2848Red Drop offSleno Cooper [facility] Start: 07-03-2024 End: 75-64-5891kojfugkvfiZdmhzn E. RossFacility:FTMCStart: 06-23-2024 End: 98-79-9428Txclxvs encounter procedureIsabel Romano AUD Work Phone: NOCV AUDComment on above:Sensorineural hearing loss, bilateral (Primary Dx); Tinnitus, bilateralStart: 06-23-2024 End: 02-56-1864dcthtfcyedBSHAUET Polina ROMANONot AvailableStart: 06-23-2024 End: 73-85-9413Kkuluz flowsJudith Romano AUD Work Phone: noms AUDStart: 06-23-2024 End: 46-02-4741Qgftdc flowsJudith Romano AUD Work Phone: noms AUDStart: 06-22-2024 End: 47-37-5787Nywjbya encounter procedureSleno Cooper MD Work Phone: [facility]-Rum-Hinxbikg Testing Work Phone: Start: 06-22-2024 End: 38-81-2791bbibqyvjtwGmsnlz E Ross MD Work Phone: [facility] Work Phone: Start: 25-16-1768Fgjkikgqa for preprocedural laboratory examinationMatteo Woody [facility] Phys[facility] GroupStart: 06-22-2024 End: 48-91-2106Wnyylnjs Result EncounterMatteo Melo MD Work Phone: noms External Department UnsolicitedStart: 06-22-2024 End: 89-52-8236Dvlspfvb Result EncounterMatteo Bell MD Work Phone: noms External Department UnsolicitedStart: 06-20-2024 End: 03-46-3405Bxgcwp outpatient new 45 minutesMatteo Melo MD Work Phone: noms ST GENSComment on above:Poor intravenous access (Primary Dx); Carcinoma of oropharynx (CMS/HCC)Start: 06-20-2024 End: 50-72-6532nlrfhszqriOIKDLS VARGAS VNot AvailableStart: 44-97-1135Xho- patient / Non-visitSleno Cooper MD Work Phone: [facility]-Cancer [facility] Ambulatory Work Phone: Start: 80-60-9062Hnvpmevyfk Philly Cooper MD Work Phone: [facility] Acute Work Phone: Start: 06-14-2024 End: 21-06-8435rzoqefrcxeUzrxzv E Ross MD Work Phone: [facility] Work Phone: Start: 06-14-2024 End: 00-57-5542Wlvdfxq encounter procedureSleno Cooper MD Work Phone: [facility] Work Phone: Start: 88-09-9925Wisasyvzgx Philly Cooper MD Work Phone: [facility] Acute Work Phone: Start: 06-14-2024 End: 26-32-5399jlqirzwousDizbzy E Ross MD Work Phone: [facility] Work Phone: Start: 06-14-2024 End: 25-74-5369Tbxzkvv encounter procedureSleno Cooper MD Work Phone: [facility] Work Phone: Start: 06-06-2024 End: 51-98-4349ygovpirbhpQTIGThe Surgical Hospital at Southwoodstart: 06-05-2024 End: 72-57-2712Djlzzoylrq hospital visit by physicianSt. 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); Metastasis to cervical lymph nodeStart: 05-30-2024 End: 30-34-9056alhihrchheCQXCOFQ N [facility] Centertart: 05-15-2024 End: 91-24-9603Yejzwywptt hospital visit by physicianRad External FilmEF RAD EXTERNAL FILM VIRTUALComment on above:ArrivedStart: 05-15-2024 End: 33-30-3571snudhnehrgQNTVXMX N [facility] Centertart: 05-11-2024 End: 68-12-5764Frbfmrwpcx hospital visit by Yajaira Schneider MD Work Phone: [facility] ORComment on above: 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 RossFacility:FTMCStart: 04-11-2024 End: 25-42-4072rkhbiaffyuOFVWGTD N [facility] Centertart: 04-11-2024 End: 42-90-6203Abjyhybox for other preprocedural examinationMAROXY Tripp [facility] Troytart: 04-11-2024 End: 68-50-8128Xtygxqabi for preprocedural cardiovascular examinationMAROXY Tripp [facility]ertart: 04-11-2024 End: 32-09-5883Wbfktgrlx for preprocedural respiratory examinationMAROXY Tripp [facility] Centertart: 04-07-2024 End: 37-82-0082Wphypg outpatient new 45 minutesMary Schneider MD Work Phone: [facility] HospitalComment on above: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); Oral lesion; Malignant neoplasm of floor of mouthStart: 04-07-2024 End: 39-10-0593kglnkofcapIICAWDE N STEVKnox Community Hospitaltart: 03-29-2024 End: 29-36-7779Dlxfbs Kilo Ham MD Work Phone: noms CI ENTStart: 03-29-2024 End: 87-31-3329Yledyf Kilo Ham MD Work Phone: noms CI ENTStart: 03-29-2024 End: 92-33-7144Rnfiyu outpatient visit 15 minutesLuc Ham MD Work Phone: noms CI ENTComment on above: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) (Primary Dx); Ulcer of gingivaStart: 03-29-2024 End: 10-99-5187lfsawbbxzrRHUAXW H TIMMISNot AvailableStart: 03-27-2024 End: 83-09-1320gfbmhslioqDODCNH HOUGHTON TIMMISFacility:[facility] Hospitaltart: 03-27-2024 End: 70-37-9924Bhfrjwwvea hospital visit by physicianArrival Time Radiology Work Phone: Radiology Pet CTStart: 03-23-2024 End: 01-49-8282jjggaipfprJvdxaegx Talal SarminiFacility:[facility] DHStart: 03-23-2024 End: 30-67-7383Opvlcxs encounter procedureMuhammad Talal Sarmini [phone]-JzrpgParkview Health [facility] Hospital Digestive Health Start: 03-08-2024 End: 50-18-7844Seyxce Kilo Ham MD Work Phone: noms CI ENTStart: 03-08-2024 End: 40-05-5305Virwfu flowsheetLuc Ham MD Work Phone: noms CI ENTStart: 03-08-2024 End: 63-13-8106Wyidrs outpatient visit 40 minutesLuc Ham MD Work Phone: noms CI ENTComment on above:Oral ulcer (Primary Dx); 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)Start: 03-08-2024 End: 32-60-7602uxbriebjmwPBUNCR H TIMMISNot AvailableStart: 03-06-2024 End: 73-70-5504Lzydhcpai encounterLuc Ham MD Work Phone: noms ENT NORWALKStart: 02-29-2024 End: 05-52-5286luhwjnkcmqRQ Samuel E Ross Work Phone: [facility] Work Phone: Start: 02-29-2024 End: 52-17-1786Dxfrbgdb ReferredMD Demetrius Cooper Work Phone: [facility]-LAB Path Spec Hector HospStart: 02-16-2024 End: 82-91-0251Cionry outpatient visit 25 minutesHithiago Ham MD Work Phone: noms CI ENTComment on above:LAD (lymphadenopathy) of right cervical region (Primary Dx)Start: 02-16-2024 End: 45-30-8866epjojcoxjgDHFEXQ H TIMMISNot AvailableStart: 02-16-2024 End: 33-61-8013Vuqzmw flowsheetAngela Lowe PA Work Phone: noms [address]Start: 02-16-2024 End: 23-56-6018Nxkzpz flowsheetAngela Lowe PA Work Phone: noms [address]TEStart: 02-16-2024 End: 25-06-4511Wznxuf outpatient visit 15 minutesAngeserena PEMBERTON Work Phone: noms [address] R[address]TEComment on above:Migraine without aura and without status migrainosus, not intractable (CMS/HCC) (Primary Dx); Vertigo; Lumbar radiculopathy; Neck pain; Degenerative disc disease, cervical; PolyneuropathyStart: 02-16-2024 End: 41-01-0092dznipuyolhEDLFGE LOWENot AvailableStart: 02-14-2024 End: 85-93-9521yobvdofcmdCOHZVV H TIMMISNot AvailableStart: 02-02-2024 End: 47-01-2684Ckyntuugh encounterToms Pino CASON Work Phone: General SurgeryComment on above:MRI Appointment; Tentering Machine Off Bearer - OtherStart: 02-01-2024 End: 29-08-1270Dnhcxn mattieheetLuc Ham MD Work Phone: noms CI ENTStart: 02-01-2024 End: 68-95-2570Wrflst flowsHilario Ham MD Work Phone: noms CI ENTStart: 02-01-2024 End: 44-65-8417Khoxrt outpatient new 30 minutesLuc Ham MD Work Phone: noms CI ENTComment on above:Parotid mass (Primary Dx) Start: 02-01-2024 End: 06-70-0486KbfvxuNnbg Augustin MD Work Phone: General SurgeryStart: 01-10-2024 End: 32-28-5086wxhtkxdbrnPrlnbk E. RossFacility:FT FM BellevueStart: 11-09-2023 End: 97-54-0596Daswnrf encounter procedureMuella Talal Lilymini [facility] Start: 10-21-2023 End: 74-14-3251Fucsiud encounter procedureMuhambrandod Talal Sarmini [phone]-LmxzkParkview Health [facility] Hospital Digestive Health Start: 09-17-2023 End: 02-30-1471Kydwodq encounter procedureAnjali Ruby [phone]-BagoyParkview Health [facility] Hospital Dig[facility] Start: 09-02-2023 End: 68-90-8750cyluxvurhjGifsoyovv [facility] Work Phone: Start: 09-02-2023 End: 15-83-1196Ybtmzzd encounter procedureFormerly [facility] Sleep [facility] Work Phone: Start: 07-27-2023 End: 22-71-1605Asxaofw encounter procedureFormerly [facility] Work Phone: Start: 99-28-3812Btqfit outpatient visit 25 minutes G[facility] OutPtStart: 05-31-2023 End: 53-39-2657qnkaawzsrdZV Demetrius Cooper Work Phone: [facility] Work Phone: Start: 05-31-2023 End: 21-83-3096Iplwxnf encounter Tomy Demetrius Allison Work Phone: [facility]-Sleep Lab Work Phone: Start: 05-25-2023 End: 40-82-6994Nzvacxn encounter Mati Ruby [phone]-SwzdfParkview Health [facility] Hospital Dig[facility]ive Health Start: 90-50-9018Tzeejdcha encounterToms Pino CASON Work Phone: General SurgeryComment on above:Received Outside Medical RecordsStart: 04-01-2023 End: 26-47-5011uhuisdmdwwKYGK AUGUSTINFacility:[facility] Hospitaltart: 04-01-2023 End: 74-75-4503Ndsmhjo encounter procedureVaishali Pringle MD Work Phone: General SurgeryComment on above:IPMN (intraductal papillary mucinous neoplasm) (Primary Dx)Start: 03-10-2023 End: 03-31-7319Pwqlxjd encounter procedureBelina Lyssa Ruby [facility] Start: 03-10-2023 End: 39-09-3599Toyavmh encounter procedureBelina Lyssa Ruby [phone]-KqummParkview Health [facility] Hospital Dig[facility] Start: 02-25-2023 End: 28-86-1842Uxjcquk encounter procedureBelina Lyssa Flori [phone]-BoxgpParkview Health [facility] Hospital Dig[facility] Start: 02-16-2023 End: 45-83-5775vkhaklabogBN Samuel E Ross Work Phone: [facility] Work Phone: Start: 02-16-2023 End: 05-34-5231Hcseimx encounter procedureMD Demetrius Cooper Work Phone: [facility]-MRI Main [place] Work Phone: Start: 17-65-9348Nvdasq outpatient visit 25 minutes [facility]Start: 01-29-2023 End: 52-77-5295epdmyfrcxgQM Samuel E Ross Work Phone: [facility] Work Phone: Start: 01-29-2023 End: 16-33-3828Sfgmuwg encounter procedureMD Demetrius Cooper Work Phone: [facility]-Sleep Lab Work Phone: Start: 49-83-0045dobfirzkutBlmoifjh:9090Start: 01-27-2023 End: 18-97-9867naipowtikiFV Samuel E Ross Work Phone: [facility] Work Phone: Start: 01-27-2023 End: 16-38-6569Sgilvhy encounter procedureMD Demetrius Cooper Work Phone: [facility]-Pacemaker CheckStart: 01-12-2023 End: 70-05-1853Enpkoxx encounter procedureBelina Omalley [facility] [phone]-JvtevParkview Health [facility] Hospital Dig[facility]ive [facility] Start: 12-17-2022 End: 07-90-3874Eecfjll encounter procedureBelina Omalley [facility] Start: 12-09-2022 End: 11-91-2413yfboegbyilOG Demetrius Cooper Work Phone: [facility] Work Phone: Start: 12-09-2022 End: 89-33-2474Mrjzhnf encounter procedureMD Demetrius Cooper Work Phone: [facility]-Sleep Lab Work Phone: Start: 11-23-2022 End: 36-26-3227Oek Drop offSleno Cooper [facility] Start: 92-56-0175Urepfa outpatient visit 15 minutes Gisele The [facility] SouthStart: 10-13-2022 End: 48-29-0638avmmgzirdoIE Mg [place] Work Phone: [facility] Work Phone: Start: 10-13-2022 End: 13-18-0824Bppfqdx encounter procedureMD Mg [place] Work Phone: [facility]-Sleep Lab Work Phone: Start: 09-29-2022 End: 96-84-1930ycnisiufkbQQ EDY G REINECKFacility:F1Dngdl: 09-24-2022 End: 52-15-1412xdpkrgtxuoZZ MG JOHNSRFacility:T4Jmilf: 09-22-2022 End: 01-00-5655Umialxmmm department patient visitGordy Sánchez [facility] Start: 01-12-5479Tusipe outpatient visit 15 minutes rGiselda Nicholson [facility] ClydeStart: 09-22-2022 End: 54-96-3982mzcbkpkvimCIORYSAIWSIZ LAKSHMIPATHY .[facility] Other Start: 08-25-2022 End: 42-20-5883dfmowkvodmWEVSMRBDIOXV LAKSHMIPATHY .Facility:Q2Sgauq: 08-12-2022 ambulatoryFacility:9090Start: 08-12-2022 End: 03-60-9697pdjmqxmxhvQO Marc Naderer Work Phone: [facility] Work Phone: Start: 08-12-2022 End: 70-75-6078Qwbxmff encounter procedureMD Mg [place] Work Phone: [facility]-MRI Main [place] Work Phone: Start: 08-11-2022 End: 75-11-2915nkgzzscrqjEBAZCHYBYKKA LAKSHMIPATHY .Facility:X5Tyxfj: 07-29-2022 Office outpatient new 60 minutesDavid [facility] Start: 07-29-2022 End: 67-79-4193rltduogiqrIP Marc Naderer Work Phone: [facility] Work Phone: Start: 07-29-2022 End: 16-46-7324Gkrppfp encounter procedureMD Mg [place] Work Phone: [facility]-Sleep Lab Work Phone: Start: 07-23-2022 End: 81-61-6254tzsebtkpziMOHG LAZO .Facility:P1Xlmvv: 07-22-2022 End: 85-05-3315pdhjqnxsabFORFU D HIGHLANDERFacility:H7Xpfvk: 07-21-2022 ambulatoryFacility:9090Start: 07-21-2022 End: 61-16-0648jqnvnygtwsPS Mg [place] Work Phone: [facility] Work Phone: Start: 07-21-2022 End: 75-23-9770Ptwjbaw encounter procedureMD Mg [place] Work Phone: [facility]-Pacemaker CheckStart: 06-18-2022 End: 46-72-1183zwvqpnzilmZYOHSFJH CULLENFacility:U4Beupv: 06-16-2022 End: 48-07-4726ngjayjurxaFINKPAGM CULLENFacility:X1Ttlql: 06-11-2022 End: 50-51-0105ethrprqqicPGDTI D HIGHLANDERFacility:I6Oclnc: 05-26-2022 End: 28-82-5578Fqjkpns encounter procedureParadha GALICIA [facility] Start: 04-16-2022 End: 59-30-0987eqlbmwzdvbQK ERWIN Bell WESTFacility:Q3Zyzgf: 64-93-9971xgcbuzmcxqZM AMANDA CLANCY .Facility:B8Iblaj: 03-12-2022 End: 38-25-0964ptnvhoegnyJWDAY D HIGHLANDERFacility:L4Pmlcj: 03-10-2022 End: 81-11-8661fugjmipowsHDZBFISC PERRYFacility:O1Rayki: 03-06-2022 End: 46-99-9755ulsocdanbsVW DOCTOR MISCFacility:W4Aejpu: 12-25-2021 End: 46-24-6024ultocdeisvXWZD CLIFTON .Facility:N4Ntbbq: 12-01-2021 End: 73-56-4233fjrngqnhyoBMWZZ D HIGHLANDERFacility:S1Dovzx: 11-29-2021 End: 75-20-9814vithzcqvvaIghtyclid Breault Other [employer] Other Start: 85-07-7146Vtdefs outpatient visit 15 minutes Leti GarciaFPG Urgent Care ClydeStart: 11-13-2021 End: 87-46-6298pmcmoigwcvUISU LACOURFacility:F4Ddnpk: 09-04-2020 End: 03-03-9895Ltqtfcg encounter procedureParam Cosme Work Phone: -MRI Main CampusStart: 08-15-2020 End: 08-28-1502Skneowq encounter procedureParam Cosme-Pacemaker CheckStart: 08-30-2019 End: 55-36-1541Eqvjgxk encounter procedureEHAB A ELTAHAWYFacility:[facility] Procedures DateProcedureProcedure DetailPerforming ClinicianStart: 49-27-8359Vjuwxkyw emission tomography with computed tomographyDemetrius Cooper MD Work Phone: Start: 76-35-6936Kcash gastrointestinal endoscopy for directed placement of percutaneous gastrostomy tubeSleno Cooper MD Work Phone: Start: 27-53-2532OKEGRPJ POCT GLUCOMETERSFredric H Vandana DO Work Phone: Start: 38-26-4524Nqgzrxlk tomography of abdomen and pelvis with contrastSleno Cooper MD Work Phone: Start: 75-55-4133Ufkdgk-up visitFollow-upMADELYN N STEVENSStart: 55-15-2524AQ of chest without contrastSleno Cooper MD Work Phone: Start: 21-23-7023Opwjz chest X-raySleno Cooper MD Work Phone: Start: 45-82-7570Ssmvrupm identified in Blood by CultureSleno Cooper MD Work Phone: Start: 83-29-1744Zimagqjzldx Panel (PCR)Demetrius Cooper MD Work Phone: Start: 38-32-7225Qeack chest X-raySleno Cooper MD Work Phone: Start: 37-06-1442Xmvbkgi venous cannula insertion Demetrius Cooper MD Work Phone: Start: 99-26-5030QX Infusaport Insertion/Removal (Not Applicable)Demetrius Cooper MD Work Phone: Start: 49-30-9359PYYKIEO POCT GLUCOMETERSMatteo Melo MD Work Phone: Start: 62-44-3032KJCYYGTU FUNCTION TESTSIsabel PALUMBO Work Phone: start: 65-21-3601Npxam metabolic panel calcium total Matteo Melo MD Work Phone: Start: 48-47-4515Aqfxkedl blood count with white cell differential, automatedMatteo Melo MD Work Phone: Start: 72-83-2293Qb guidance needle placement img s&i Mary Schneider MD Work Phone: Start: 75-95-8534Vbklg Interpretation of outside study Mary Schneider MD Work Phone: Start: 26-94-0150Fkapyfa quantitative blood xcpt reagent stripMadeljuan Schneider MD Work Phone: Start: 88-88-0271OXCCU OXIMETRY, CONTINUOUSMondavid Santana MD Work Phone: Start: 04-46-5793Kupukgj quantitative blood xcpt reagent stripMadeljuan Schneider MD Work Phone: Start: 16-11-6833CYZME/VERIFY ABORHCjuliane Munoz MD Work Phone: Start: 62-21-3538Vjppv typing serologic rh (d)Gabo Munoz MD Work Phone: Start: 71-15-4678Jnva bld gluc mntr dev cleared fda spec home useCcf ProviderStart: 64-54-2524Dypqhgvgpoo procedureAnjali Ruby Comment on above:done for painStart: 06-14-2023 ColonoscopyAnjali Ruby Start: 60-11-6552HnahaknisgucyjpbbqxteyzariJqme Steinmetz Start: 64-59-5564YY abdomen wo conMD Demetrius Cooper Work Phone: Start: 34-37-6627MYC of cervical spine without contrastMD Mg Guero Work Phone: Start: 68-95-7552XZ pre/post mri xrayMD Mg [place] Work Phone: Start: 04-52-6465PIT of right ankleMD Mg [place] Work Phone: Start: 89-25-3936TKC screeningWEST PENN HOSPITALComment on above:Performed By: #### CBC #### [facility] [address] [place] [address] Dr. Mustafa [facility] HospitalStart: 64-68-4490IqcxrjsqnwrkafqklksmedciwuJrsfgek GALICIA Comment on above:2 diminunative ulcers, gastritis, gastric polyp, biopsyAngioplasty of blood vesselPacarroll county memorial hospitalk GALICIA Cardiac pacemaker procedurePaHarrington Memorial Hospital Cataract (disorder)Gordy Sánchez Comment on above:bilateralCholecystectomyPacarroll county memorial hospitalk GALICIA ColonoscopyThe Medical Centerk GALICIA Hernia repairPatrick GALICIA ProstatectomyPacarroll county memorial hospitalk GALICIA TonsillectomyMesilla Valley Hospital VasectomyThe Medical Centereventblimp GALICIA Plan of Treatment DateCare ActivityDetailAuthorStart: 06-08-2025 End: 14-83-5511Zhwgxuf encounter /23/2026 1:30 PM EST Office Visit [facility] [address] [facility] 1st [place] [address] [place] [address] [place] [address] [facility]: 04-11-2025 Creatinine measurementCreatinine [facility] PragueStart: 54-26-4735Faqqtzsau measurementPotassium [facility] Start: 04-03-2025 End: 21-76-5769Uldomjs encounter nlgvfedah27/18/2025 11:00 AM EST Office Visit LISANDRO [facility] [address] [place] [phone] Missy Villarreal NP [address] [place] [address] LISANDRO BRYANTTAItart: 44-52-4401Cmqixhoia vaccinationInfluenza Vaccine (#1) [facility] HospitalStart: 28-42-8193Pqxyiau referralC[facility] Work Phone: Start: 12-11-2024 End: 19-85-6047Bulefbk encounter /28/2025 10:00 AM EDT Office Visit [facility] [address]nd [place] [address] [place] [address] [place] [address] [facility]ertart: 10-11-2024 End: 97-52-3107Dhtooqm encounter uwjeaswwl09/28/2025 2:15 PM EDT Office Visit [facility] [address] [address] Veena Ross DO [address] [facility] [address] [place] [address] NOMPolina HACKETTtart: 07-13-7908YrbywqudrThe Jewish Hospitaltart: 09-28-2024 End: 48-73-2860Tszyqcm encounter procedureBANNER CAS[facility] NICOLETTEComment on above:Arrived Start: 08-29-2024 End: 50-57-9639Hdfdgbu encounter procedureNOUNIVERSITY HOSPITALS [facility]ACH[facility] ROUTEStart: 19-05-5751FchazldnpThe Jewish Hospitaltart: 98-95-0354Zmdjbuimindlzs of prophylactic treatmentThe Jewish Hospitaltart: 08-21-2024 [facility] Hospitaltart: 57-59-5113KgjnzrglwThe Jewish Hospitaltart: 43-53-2981Hfwjitpc to infectious diseases physicianThe Jewish Hospitaltart: 53-94-5281QgoimjqhzThe Jewish Hospitaltart: 97-95-3945SF Chest WO contrastThe Jewish Hospitaltart: 08-20-2024 CT of chest without contrastCT chest wo [facility] Start: 74-60-0166Evaxbhfe admissionThe Jewish Hospitaltart: 02-55-7373EjwadrjytThe Jewish Hospitaltart: 11-29-7494Bkhveowh identified in Blood by CultureBlood CultureThe Jewish Hospitaltart: 89-99-4027PyvokglyiThe Jewish Hospitaltart: 08-09-2024 End: 35-57-0794XrosxoiieThe Jewish Hospitaltart: 08-03-2024 End: 50-99-4817JitxegscoThe Jewish Hospitaltart: 66-45-1112RkvhcgoltThe Jewish Hospitaltart: 37-78-8630YwlbhaqgsThe Jewish Hospitaltart: 07-26-2024 End: 85-86-5251Npdlfgx encounter sxavyaemt32/12/2025 10:15 AM EDT Office Visit [facility] SANDOV[facility] [address] [address] Matteo Melo MD [address] [facility] 150 [place] [address] [facility]ALTHCAREtart: 70-17-0670RwyxyctzxAdams [facility] Start: 22-02-7081YiikflzdgThe Jewish Hospitaltart: 65-07-7142XktbsctttThe Jewish Hospitaltart: 80-42-6489WrhdxkyroThe Jewish Hospitaltart: 07-11-2024 End: 79-92-5023Zkwuakr encounter sdfvdyvbx00/25/2025 1:15 PM EST Office Visit [facility] [address] [facility] [address] [place] [address] Matteo Melo MD [address] [facility] [address] [place] [address] [facility] HEALTHCAREtart: 07-92-5622RwrizruipAdams County Regional Medical Center Start: 20-21-6277Rmpespa venous cannula insertionOR Infusaport Insertion/Removal (Not Applicable)The [facility] Hospitaltart: 00-08-9673FttolhouyThe Jewish Hospitaltart: 06-23-2024 End: 37-92-9283Eqqgzan encounter procedureNOMS AUDComment on above:Arrived Start: 27-37-2414Bzmviih referralC[facility] Clinic [facility] Work Phone: Start: 06-05-2024 End: 09-08-7408Jrkulhn encounter mjvlozook28/20/2025 1:00 PM EST Appointment [facility] [address] [place] [address] [facility] Centertart: 05-30-2024 End: 58-32-3971Ickyucnpjoca consultation with mzglrhs1505/30/2024 11:45 AM EST Telemedicine [facility] [address] [place] [address] [place] [address] [place] [address] [facility]art: 05-11-2024 End: 03-91-3594Thyktay incl fluor gdnce dx w/cell washg spx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 05/11/2024 7:17 AM ESTVirtual TATIANA Turner [place] Start: 05-11-2024 End: 93-71-4047Tqbfpawfioxxu flexible transoral diagnosticEsophagoscopy Malignant neoplasm of floor of mouth 05/11/2024 7:17 AM ESTVirtual TATIANA Ericksoner [place] Start: 05-11-2024 End: 42-76-7776Zkmwjnhfepk hemiglossectomyGLOSSECTOMY, ROBOT-ASSISTED, ORAL APPROACH Malignant neoplasm of floor of mouth 05/11/2024 7:17 AM ESTVirtual TATIANA Turner ORStart: 05-11-2024 End: 31-37-6862Erefunxvphzh w/wo tracheoscopy dx except newbornDirect Laryngoscopy Malignant neoplasm of floor of mouth 05/11/2024 7:17 AM ESTVirtual [facility] [place] ORStart: 05-11-2024 End: 90-00-0930Megfzbbigpsud primary/secondary age 11/>Tonsillectomy Malignant neoplasm of floor of mouth 05/11/2024 7:17 AM ESTVirtual [facility] [place] [place] Johnny ORStart: 35-76-4912Yofqefqbcq hospital visit by ubkpbjokw08/04/2024 Hospital Encounter [facility] [place] [address] [place] [address] [place] [address] [place] [address] [facility] Johnny ORStart: 04-07-2024 End: 20-32-6126Tozekoy for Pre-Admission Testing VisitRequest for Pre-Admission Testing Visit Procedures Routine Oral lesion Malignant neoplasm of floor of mouth Expected: 04/07/2024 (Approximate), Expires: 04/07/2025[facility] Service Area Work Phone: Comment on above:Expected: 04/07/2024 (Approximate), Expires: 04/07/2025Start: 03-08-2024 End: 00-00-9627Kfbpsil encounter procedureNOMS CI ENTComment on above:Arrived Start: 02-16-2024 End: 44-01-9401Lucnris encounter kzjrmbakw72/02/2024 2:30 PM EDT Office Visit [facility] [address] [place] [address] Luc Ham MD [address] [place] [address] [facility] CI ENTStart: 02-16-2024 End: 16-59-2276Ijczsre encounter procedureNOMS QUILCENE STATE ROUTEComment on above:ArrivedStart: 02-01-2024 End: 27-25-9195Dwvqttc encounter nkycrolyq06/17/2024 1:10 PM EDT Office Visit [facility] [address] [place] [address] Luc Ham MD [address] [place] [address] ArrivedNOMS CI ENTComment on above:ArrivedStart: 28-80-1570Hocpc-19 Vaccine ()Covid-19 Vaccine ()[facility]: 73-29-4110Zkcah-19 Vaccine () Covid-19 Vaccine ()[facility]: 59-27-4629Ubfnf-19 Vaccine ()Covid-19 Vaccine ()[facility]: 06-01-8431Nkdabcpoi vaccinationInfluenza Vaccine (#1)[facility]: 30-96-4506Tltqygp Directive DiscussionAdvance Directive Discussion [facility]: 36-52-0106Oykmx-19 Vaccine ()Covid-19 Vaccine ()[facility]: 78-37-4510Wdgjofqya vaccinationInfluenza Vaccine (#1)[facility]: 51-14-8780smhoilnsyk AmbulatoryFacility:S8Trstw: 21-24-5297Fcpfyzn Directive DiscussionAdvance Directive DiscussionRegency Hospital Cleveland Easttart: 81-60-5601Rdqhnnaxvx Assessment Depression AssessmentRegency Hospital Cleveland Easttart: 14-41-9325TLU of right ankleMR ankle RT wo [facility] CtrStart: 92-37-9891EJ pre/post mri xrayXR pre/post mri xrayAdams County Hospital CtrStart: 46-50-1714Aueuihzdnrqm Vaccine: 65+ (2 - PPSV23 or PCV20)Pneumococcal Vaccine: 65+ (2 - PPSV23 or PCV20)[facility]: 01-26-3964Umnzgvmitejd Vaccine: 65+ (2 of 2 - PPSV23 or PCV20)Pneumococcal Vaccine: 65+ (2 of 2 - PPSV23 or PCV20)[facility]: 80-21-1355SPY High Risk: (Elderly (60+) or Population) (1 - 1-dose 75+ series)RSV High Risk: (Elderly (60+) or Population) (1 - 1-dose 75+ series)[facility]: 64-95-7201YSJ Vaccine (1 - 1-dose 75+ series)RSV Vaccine (1 - 1-dose 75+ series)[facility]: 47-77-7420BMV Vaccine (1 - 1-dose 60+ series)RSV Vaccine (1 - 1-dose 60+ series) [facility]: 23-51-2117Gsukhsna Vaccine (1 of 2)Shingrix Vaccine (1 of 2)[facility]: 25-33-9800Qldaachm ScreeningDiabetes ScreeningRegency Hospital Cleveland Easttart: 47-65-7528CZdM/Tdap/Td Vaccines (1 - Tdap)DTaP/Tdap/Td Vaccines (1 - Tdap)[facility]: 37-23-3119Ztzfb microalbumin profileDTaP,Tdap,Td Vaccine (1 - Tdap)[facility]: 14-95-1565Oijrg screening for proteinDiabetes: Urine Protein ScreeningUnOhioHealth Dublin Methodist HospitalStcastleford: 85-72-2337Alsaqni ScreeningAnxiety ScreeningPromedica Defiance Regional Hospital Start: 45-11-9664Vdgbyxqwlo ScreeningDepression ScreeningRegency Hospital Cleveland Easttart: 53-90-6491Yhlymcaj screeningDiabetes: Retinopathy ScreeningUnUpper Valley Medical Center: 01-42-1897Hlgbjm wellness visitWelcome to Medicare Visit [facility]: 23-39-5223MfmkkznnwcuwramsEwfclrociaabvg [facility]: 23-11-8074Zcumoucpgi A1c measurement Diabetes: Hemoglobin A7LIvvcrqkhpzUpper Valley Medical Center: 72-81-6503Lbaab panelLipid PanelUnUpper Valley Medical Center: 06-15-1940Medicare Annual Wellness VisitMedicare Annual Wellness Visit (AWV)[facility]: 09-57-8587Bxjkc screening for proteinDiabetes: Urine Protein ScreeningWhite Hospital End: 29-92-8619Srxihjq device check - InpatientM[facility]ES [facility] Service Area Work Phone: Comment on above:Once for 1 Occurrences starting 05/11/2024 until 05/11/2024 End: 09-15-7632Yllldaw device check - SurgeryUnOhioHealth Dublin Methodist Hospital Work Phone: Comment on above:Once for 1 Occurrences starting 05/11/2024 until 05/11/2024omprehensive metabolic 1999 panel - Serum or Plasma [facility] CenterComprehensive metabolic 1999 panel - Serum or PlasmaAdams County Regional Medical CenterComprehensive metabolic 1999 panel - Serum or PlasmaAdams County Regional Medical CenterComprehensive metabolic 1999 panel - Serum or [facility] Medical CenterComprehenve metabolic 1999 panel - Serum or [facility] Medical CenterCT with contrast for radiotherapy planningAdams County Regional Medical CenterCT with contrast for radiotherapy planningAd[facility] County [facility] Center End: 84-61-6185Reqkwjg [Mass/volume] in Serum or PlasmaPOCT Glucose Point of Care Testing - Docked Device Routine Once (Lab) for 1 Occurrences starting until 05/11/2024[facility] Service Area Work Phone: Comment on above:Once (Lab) for 1 Occurrences starting 05/11/2024 until 05/11/2024Laryngoscopy w/wo tracheoscopy dx except Direct Laryngoscopy Oral lesion Malignant neoplasm of floor of mouthVirtual [facility] [place] [place] End: 70-31-4723MW Biliary ducts and Pancreatic duct WO and W contrast IVMRI PANC/TRISH WO/W IVCON Radiology Routine IPMN (intraductal papillary mucinous neoplasm) 1 Occurrences starting 02/01/2024 until 5CGerman Hospital Work Phone: Comment on above:1 Occurrences starting 02/01/2024 until 03/02/2025 End: 27-18-5895WJ Unspecified body region 3D post processingMRI 3D POST PROCESSING Radiology Routine IPMN (intraductal papillary mucinous neoplasm) 1 Occurrences starting 02/01/2024 until 5CClinton Memorial HospitalComment on above:1 Occurrences starting 02/01/2024 until 03/02/2025Patient Education [facility] Work Phone: Patient referralC[facility] Work Phone: Surgical pathology studySurgical Pathology Exam Pathology and Cytology Routine Oral lesion 04/07/2024 11:37 AM [facility] Work Phone: Surgical pathology [facility] Service Area Work Phone: Comment on above:Release Upon Ordering for 1 Occurrences starting 05/11/2024, 1 completed End: 73-53-9382Rrhgryrk pathology [facility] Area Work Phone: Comment on above:Once (Lab) for 1 Occurrences starting 06/05/2024 until 06/05/2024, 1 completedPsych[facility], [facility] Immunizations Immunization DateImmunizationNotesCare KysfpfvnTofmcoqo58-48-0086xvlzwuhyq, high dose seasonal, preservative-free; Translations: [Fluzone High Dose Vaccine] Demetrius Copoer [phone]-XikycParkview Health Bryan Hospital [facility] Hector 48-35-7099chxznebcm virus vaccine, unspecified formulationMary Schneider MD Work Phone: [facility] Work Phone: [phone] vaccine recombinantMuhammad Sarmini [phone]-OdrzkParkview Health Bryan Hospital Digestive Tomyii30-15-5101 pneumococcal 20-valent conjugate vaccineMuhammad Sarmini [phone]-RhhabBarney Children'S Medical Center07-08-2024 zoster vaccine recombinantMuhammad Sarmini [phone]-NzgvmBarney Children'S Medical Center12-13-2023 COVID-19 (PFIZER) 11Y and Leda Cooper MD Work Phone: [facility]11-27-2023influenza virus vaccine, unspecified formulationAnjali Ruby [phone]-QzcfbBarney Children'S Medical Center07-12-2022 Pfizer Haque Cap SARS-CoV-2 VaccinationLuc Ham MD Work Phone: [facility] LawnLaceonnlkf73-15-6250NZVP-UyA-1 mRNA (ekmjqotkhng-vdge-lojbqmj) vaccineSleno Cooper [phone]-BrwxvMiami Valley Hospital07-12-2022 SARS-CoV-2, UnspecifiedAngeserena PEMBERTON Work Phone: NOUniversity Health Lakewood Medical CenterSvkuvkjnht39-78-5221AJSC-IeN-2 (COVID-19) mRNA BNT-162b2 vaxSleno Cooper [phone]-EmutpMiami Valley HospitalComment on above: Result Comment: 2022-11-03: UXK2268-09-8927SLMH-SuY-4, UnspecifiedLuc Ham MD Work Phone: [facility] LawnDmnrygennb45-04-4627ccsrifmvy virus vaccine, unspecified formulationSleno Cooper [phone]-OzpbaMiami Valley Hospital10-05-2021 Influenza, injectable, Madin Mireya Canine Kidney, preservative free, quadrivalentLuc Ham MD Work Phone: [facility] LawnUkrwxdqwtb02-98-2525WWCF-BtF-4 (COVID-19) Ad26 vaccine, recombinantPaExThera Medicalk GI-View GeneMayers Memorial Hospital DistrictMnyuadcu91-55-9898FVZA-RgZ-3 (COVID-19) mRNA BNT-162b2 Ask ZiggyxBusyEvent [facility]02-11-2021SARS-CoV-2, UnspecifiedLuc Ham MD Work Phone: [facility] LawnKhqrdiyszv59-15-7895KDBI-FkX-5 (COVID-19) Ad26 vaccine, recombinantBusyEvent GeneMayers Memorial Hospital DistrictDqksqvvf60-28-3456ICRI-XcP-4 (COVID-19) mRNA BNT-162b2 vaSedia Biosciences [facility]01-21-2021SARS-CoV-2, UnspecifiedLuc Ham MD Work Phone: [facility] LawnUwtbfspyur95-11-8816mdtnvyays virus vaccine, unspecified formulationSleno Cooper [phone]-TfdcoMiami Valley Hospital09-30-2020 Influenza, injectable, Madin [place] Canine Kidney, preservative free, quadrivalentLuc Ham MD Work Phone: [facility] LawnRwubovoiss28-50-9393jmncxrqqz, high dose seasonal, preservative-freeLuc Ham MD Work Phone: [facility] LawnBpmkqdbikl29-80-2686xmnjrlxbw virus vaccine, unspecified formulationLuc Ham MD Work Phone: [place] [address]Dsbzclheql16-89-5560vjlafwdzt, injectable, quadrivalent, contains preservativeLuc Ham MD Work Phone: [facility] LawnHkjwqnseyu79-31-7493bshtbeaxf, unspecified formulationSleno Cooper 245-4025Gsxken-GircmOhiohealth Nelsonville [facility] Center Ljamoors28-80-2054 pneumococcal conjugate vaccine, 13 Dalila Cooper fisher876-0882Ukmjzd-AuxlnNexus Children'S Hospital Houstonue09-16-2014 pneumococcal conjugate vaccine, 7 Ema Ham MD Work Phone: [facility] Payers DatePayer CategoryPayerPolicy [id number] Health Insurance [id number]-yoq [id number] Eligibility Medicare/Medicaid [facility] [place] [id number] [id number] 2023Medicare (Managed Care)[id number] 2023Medicare [id number] [id number] [id number] [id number] 1960 [id number] 2.16.840.1.340674.3.579.2.647 [id number] 2.16.840.1.775742.3.57[id number] 2.16.840.1.649220.3.579.[id number] 2.16.840.1.332518.3.57[id number] 2.16.840.1.760772.3.57[id number] 2.16.840.1.152317.3.57[id number] 2.16.840.1.457519.3.57[id number] 2.16.840.1.262797.3.57[id number] 2.16.840.1.391438.3.57[id number] 2.16.840.1.613513.3.579.2.61186-40-8641Xvzdmys0174972 2.16.840.1.091327.3.579.2.90519-55-0519Kafrpsi1884225 2.16.840.1.307841.3.579.2.86071-11-3964Mopyxoo3338798 2.16.840.1.228201.3.579.2.77792-87-3657Kagllxv8381569 2.16.840.1.823020.3.579.2.61042-35-7200Runqtjn0169851 2.16.840.1.240446.3.579.2.98769-47-0714Uyolcwr8058902 2.16.840.1.766469.3.579.2.17850-64-3919Gjjzkvz1814634 2.16.840.1.599794.3.579.2.31845-32-1302Tmciqig1804674 2.16.840.1.876265.3.579.2.82144-42-1621Nvrbxat0888522 2.16.840.1.940184.3.579.2.19125-60-8427Fszvdsb2503994 2.16.840.1.206565.3.579.2.64567-96-0309Brbtqha0941714 2.16.840.1.490977.3.579.2.28703-49-6467Uiuyudn289884261 2.16.840.1.980913.3.57[id number] 2.16.840.1.513745.3.579.2.66029-99-5334Oyheyyc466072790 2.16.840.1.494646.3.579.2.85196-16-8077Qgaienf20421807 2.16.840.1.045147.3.579.2.10055-13-0813Ehmjyjz21864057 2.16.840.1.560663.3.579.2.55333-77-1630Wmmajyy45522186 2.16.840.1.452131.3.579.2.61450-30-3000Vphuhjf17713115 2.16.840.1.692647.3.579.2.82565-83-0115Pcbfaok99276039 2.16.840.1.414950.3.579.2.20737-99-4337Cdlkykf11407213 2.16.840.1.641993.3.579.2.49498-87-6920Earohgt38597690 2.16.840.1.630587.3.579.2.33012-36-7556Bvjttoc83221458 2.16.840.1.316262.3.579.2.46996-42-2398Ujijekp24230259 2.16.840.1.927170.3.579.2.43534-24-1725Akdedeg40471718 2.16.840.1.799894.3.579.2.74127-95-8810Uxziyfv05854421 2.840.1.200522.3.579.2.79140-72-3138Lzfyfgd72510005 2.16.840.1.834549.3.579.2.02662-98-4192Pvddlul34009749 2..840.1.664986.3.579.2.36183-56-2977Uolemgo94219097 2..840.1.052942.3.579.2.50163-79-9192Gzqlybv36366513 2.840.1.902051.3.579.2.47756-82-6833Grewons06204194 2.16.840.1.170886.3.579.2.52423-89-6658Ymhroof80722663 2.16.840.1.255310.3.579.2.46294-50-0216Vjlhili60766450 2.16.840.1.081110.3.579.2.42942-37-0495Teoujac205447246 2.16.840.1.375922.3.579.2.765125-57-6452Dwzhjcf318319713 2.16.840.1.454361.3.579.2.434472-71-7568Jjihuac634109894 2.16.840.1.682791.3.579.2.836562-24-3472Djksopp113971756 2.16.840.1.075701.3.579.2.389915-89-3135Scxrrxd278679074 2.16.840.1.761798.3.579.2.763624-75-7314Gecqsio087003454 2.16.840.1.046816.3.579.2.580809-18-9435Jbihxvk27391987 2.16.840.1.535939.3.579.2.469492-84-8870Yeutwzt85837066 2.16.840.1.656873.3.579.2.275651-91-2697Mozczui41469081 2.16.840.1.757312.3.579.2.562383-37-6703Mjarkzg65149039 2.16.840.1.952639.3.579.2.012372-08-4948Qxkwyjq43495120 2.16.840.1.446407.3.579.2.595401-56-3704Kxkiqfr8678725 2.16.840.1.636434.3.579.2.210460-33-6861Wmqzmwq5274089 2.16.840.1.213428.3.579.2.560767-95-2632Eyglyic5467961 2.16.840.1.009311.3.579.2.146996-82-8039Rwcxntk3478643 2.16.840.1.633181.3.579.2.521927-45-9487Wlzzlcd0721529 2.0.1.030477.3.579.2.205258-48-2172Wiprgnk1421306 2.840.1.939683.3.579.2.258973-56-7568Wkaxrbb7044840 2.0.1.690893.3.579.2.287672-97-4501Liqyuts7498861 2.0.1.995232.3.579.2.327492-12-8511Gsccpke8087173 2..1.952962.3.579.2.784393-44-5236Vtedwyu4408699 2..1.898178.3.579.2.396625-27-6528Bstkuwx1121566 2..1.838114.3.579.2.725406-78-4159Qkcuitv4363253 2.840.1.467354.3.579.2.5591Xudkdrn64699555 2.840.1.651475.3.579.2.531 Epxxdqt16748022 2.0.1.889651.3.579.2.156Zpvfnhd80046564 2.0.1.430337.3.579.2.344Pirifyx68523082 2.840.1.433383.3.579.2.531 Lozbdsg85175389 2.840.1.952918.3.579.2.381Eptljfi84850526 2.840.1.899659.3.579.2.330Qqbdzav93880259 2.840.1.303275.3.579.2.531 Mupxcxe91166674 2.16.840.1.539196.3.579.2.690Rbsnmqi74975045 2.16.840.1.560491.3.579.2.279Jqapzen35364118 2.16.840.1.715820.3.579.2.531 Fbbhway50186579 2.16.840.1.048914.3.579.2.419Nbyeukp02470021 2.16.840.1.621418.3.579.2.740Rfsmfgz79312255 2.16.840.1.228665.3.579.2.531 Gxazjdl83690203 2.16.840.1.602561.3.579.2.973Juruwjb64803240 2.16840.1.116570.3.579.2.252Yvqgpfk62468869 2.840.1.007307.3.579.2.531 Mtlvbyw90482404 2.16840.1.015802.3.579.2.226Hmghvqy44972283 2.16840.1.369201.3.579.2.998Dwcfabs92203757 2.16840.1.861222.3.579.2.531 Gzfscpa27605824 2.840.1.370656.3.579.2.662Yewqukt06797929 2.840.1.759227.3.579.2.168Papxxcg65108957 2.840.1.362223.3.579.2.531 Social History DateTypeDetailFacilityTobacco smoking status NHISUnknown if ever smokedAdams County Hospital CtrStart: 62-03-3246Cho Assigned At [facility] CenterStart: 04-01-2023 End: 44-46-4796Vdv Assigned At [facility]art: 04-27-2022 End: 11-37-4891Kxgumpe smoking statusEx-smoker (finding)[facility] on above:former smoker quit at age 41, 1 PPDPatient states he smoked about 1.5 PPD, cigarettes, from about 17 y.o. to about 41 y.o.Start: 08-42-3810Emduxwl smoking statusNeverExec[facility] of [facility] on above:former smoker quit at age 41, 1 PPDPatient states he smoked about 1.5 PPD, cigarettes, from about 17 y.o. to about 41 y.o. End: 65-44-9345Fqeiguj of tobacco useCurrent smokerPromedica Defiance Regional Hospital End: 02-22-2819Xsblgoh of tobacco useCigarette SmokerRegency Hospital Cleveland Easttart: 53-46-0735Mcbonxt use and exposureSmokeless tobacco non-userPromedica Defiance Regional Hospital Start: 04-01-2023 End: 91-08-6461Fsvtrsm of Social functionRegency Hospital Cleveland Easttart: 36-90-6114Xra Assigned At BirthNot on filePromedica Defiance Regional HospitalHistory of tobacco usePassive smoker [facility] HealthcareStart: 02-12-2024 End: 99-34-6095Zdmgxbuwk beverage intakeCurrent drinker of alcohol (finding)[facility] HealthcareStart: 30-53-3366Usapxau CommentYears smoked: 25[facility] HealthcareStart: 62-08-9753Dsuuikm Comment1 or 2 drinks/day, monthly or less; Caffeine: 1 drink/dayCASTLEVIEW HOSPITAL HealthcareStart: 04-07-2024 End: 02-25-0998Kfxzpwb use and exposureFormer smokeless tobacco userWhite Hospital Work Phone: Start: 04-01-2024 End: 44-23-9407Uzyflsmi to SARS-CoV-2 (event)Not sureUnOhioHealth Dublin Methodist HospitalStart: 09-02-1212Dbibxn identityIdentifies as male gender (finding) [facility] Work Phone: Start: 07-63-6218Lqsurt orientationHeterosexual (finding)[facility] Work Phone: Start: 06-14-2024 End: 88-43-8938VpyVlqa (finding)[facility]art: 08-20-2024 End: 99-22-5793Xuhusfn smoking status NHISNever smoked tobacco (finding) [facility] Hospitaltart: 87-46-5467DBAJ Follow upSDOH Follow up [facility] Work Phone: Sexual [facility] Start: 45-65-9318Wnfgrbz Commentor less or week [facility] Work Phone: Medical Equipment Procedure CodeEquipment CodeEquipment Original TextEquipment IdentifierDates Insertion of central venous catheter (CVC) with subcutaneous port for chemotherapyVascular port/[id number] FDA Start: 07-17-2024 End: 21-31-7135Qbe Instructions, one touch ultra test strips test sugars once a dayStart: 51-08-8316Qws Instructions, one touch ultra lancets Use to test sugars once a dayStart: 79-59-7070Pdm Instructions, one touch ultra test strips test sugars once a dayStart: 04-35-3144Bjl Instructions, one touch ultra lancets Use to test sugars once a dayStart: 82-09-3954Pvx Instructions, one touch ultra test strips test sugars once a dayStart: 53-78-2960Cvm Instructions, one touch ultra lancets Use to test sugars once a dayStart: 16-10-1327Gjd Instructions, one touch ultra test strips test sugars once a dayStart: 91-00-9788Hek Instructions, one touch ultra lancets Use to test sugars once a dayStart: 31-56-2425Npe Instructions, one touch ultra test strips test sugars once a dayStart: 27-36-0677Tlv Instructions, one touch ultra lancets Use to test sugars once a dayStart: 36-13-4709Oat Instructions, one touch ultra test strips test sugars once a dayStart: 75-58-4739Ubb Instructions, one touch ultra lancets Use to test sugars once a dayStart: 17-53-0071Dav Instructions, one touch ultra test strips test sugars once a dayStart: 13-97-2754Exk Instructions, one touch ultra lancets Use to test sugars once a dayStart: 80-11-4080Nrh Instructions, one touch ultra test strips test sugars once a dayStart: 17-59-9699Nqp Instructions, one touch ultra lancets Use to test sugars once a dayStart: 94-71-8591Yri Instructions, one touch ultra test strips test sugars once a dayStart: 84-45-3565Eet Instructions, one touch ultra lancets Use to test sugars once a dayStart: 02-08-2232Ctv Instructions, one touch ultra test strips test sugars once a day Start: 43-71-9249Dum Instructions, one touch ultra lancets Use to test sugars once a dayStart: 05-38-6013Kxr Instructions, one touch ultra test strips test sugars once a dayStart: 35-22-9050Nth Instructions, one touch ultra lancets Use to test sugars once a dayStart: 23-37-1031Sec Instructions, one touch ultra test strips test sugars once a dayStart: 18-53-0806Hjl Instructions, one touch ultra lancets Use to test sugars once a dayStart: 02-56-0615Gow Instructions, one touch ultra test strips test sugars once a dayStart: 94-47-7883Mhi Instructions, one touch ultra lancets Use to test sugars once a dayStart: 17-61-3546Lzl Instructions, one touch ultra test strips test sugars once a dayStart: 78-08-4560Yow Instructions, one touch ultra lancets Use to test sugars once a dayStart: 15-59-9711Ydk Instructions, one touch ultra test strips test sugars once a dayStart: 45-93-3479Sol Instructions, one touch ultra lancets Use to test sugars once a dayStart: 83-39-1494Fqb Instructions, one touch ultra test strips test sugars once a dayStart: 44-44-5434Hut Instructions, one touch ultra lancets Use to test sugars once a dayStart: 01-56-9736Ezs Instructions, one touch ultra test strips test sugars once a dayStart: 43-83-4532Wva Instructions, one touch ultra lancets Use to test sugars once a dayStart: 08-24-2022 Goals DatePatient GoalDesired Activity/State Functional Status HqzoZhccaekpjlOvbvjuGexfwxab17-61-0665Zayiiln Health Questionnaire 2 item (PHQ- 2) [Reported][facility] Work Phone: [phone] 571-797404317725-38-2848Mujxdqktvr statusPatient at Baseline [facility] Work Phone: 1([phone]) 525-79931922292-69-3268Cugsclizzm StatusN/[facility] Nivbqz27-76-9964Drbswjjubr StatusN/[facility] Ytisbp44-54-1195Lbnukimxko StatusN/[facility] Kksmeg48-03-7561Jvilewmhaf StatusN/[facility] Cpafwo86-74-5554Onjnvzjrez StatusN/[facility] Zyyprm24-03-2213Cwxupyohuk StatusN/[facility] Ogzmzu83-07-6523Uhhovtqggs StatusN/[facility] Itlaxu61-20-4311Tlwvlhcist StatusN/[facility] 36-53-4247Ictyuvmhuu StatusN/[facility] Mental Status UzdbJqriysssclQxcrhoImhudhks68-37-8958Ppsdbvjjj functionCognitive Status [facility] Work Phone: Clinical Notes 11-29-2021 to 01-18-2025 Note Date & EygrIuhpIvgrgzkw36-81-7692 History of Present illness Narrative* Veena Ross, [...] I'll see him PRN. documented in this encounterCox Walnut LawnUgczqcupqj36-07-3005 Evaluation note* Diagnosis Onset Date Resolution Status Admit Date Squamous cell carcinoma of oropharynx acuteAugust 2024 12:32pmSquamous cell carcinoma of oropharynxacuteOctober 2024 9:41am [facility] Work Phone: 1(604) 464-513808-12-2025 [facility] [place] [address] Cancer Center Note Signed Patient: Jeremie Bennett MR#: [id number] : 1940 Acct:[id number] Age/Sex: 84 / M Type: DEP AMB [...] was placed by surgery here at [facility] and patient is hopeful to have [...] Extended-Release) Allergy (Unknown, Verified 11/23/24 10:00) hives [facility] Medical History Medical History (Updated 11/23/24 @ [...] Glaucoma Mother Heart disease [facility]: Diagnosed with Stroke Hypertension Emphysema lung ESRD (end stage renal disease) Sister [facility] Problem: Diagnosed with Cancer Lymphoma Social History [...] APRN DD/ 1303 Signed By: 12/26/24 1343 [facility]07-28-2025 History of Present illness Narrative * Mary Schneider MD - 12/11/2024 1:45 PM EDT HEAD AND NECK SURGERY FOLLOW UP [facility] Referring Provider: Dr. Ham HPI I [...] and Dr Lamas (med onc) at [facility] - November 2024 post treatment PET with [...] lymph nodes Procedure Note: Diagnostic Flexible Laryngoscopy (73862) Indication: patient symptoms requiring evaluation of pharyngeal/laryngeal/hypopharyngeal [...] s/p completion of chemoradiation treatment at [facility] August 2024 - Doing well overall, scope and exam findings with improved thick mucous and edema. 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, he will do this closer to [...] concerns Mary Schneider MD documented in this [facility] Work Phone: 1(885) 546-178107-22-2025 NoteUT Electrophysiology Consult Note [place] [facility] Reason for visit: Device at [facility] [...] on file Intimate Partner Violence: Unknown (07/08/2023) [place] Safety & Environment Fear of Current or Ex-Partner: Not on file Emotionally Abused: Not on file Physically Abused: Not on file Sexually Abused: Not on file Physically or Sexually Abused: Not on file Depression: Not at risk (09/11/2024) [facility] from [facility] PHQ-2 Patient Health Questionnaire-2 Score: 0 [...] MOUTH IN THE MORNING 100 tablet 3 BVAUKNMWZZ-PHRKWEV-SMYCIRNE ORAL Take by mouth if needed. clopidogrel [...] 1 tablet every day by oral route. onhntknlqi-lelvdbodhbekw-apxy (Esgic) 50-325-40 mg capsule Take 1 capsule [...] mg by mouth in the morning. HYDROcodone-acetaminophen ([place]) 5-325 mg tablet Take 1 tablet by mout (more content not included)...[facility]07-10-2025 [facility]Un[facility] [place] [address] Cancer Center Note Signed Patient: Jeremie Bennett MR#: [id number] : 1940 Acct:[id number] Age/Sex: 84 / M Type: REG AMB [...] his week 1 of cisplatin. Labs at [facility] on 07/03/24 revealed hgb 13.3, cr is 1.0. He is having his labs here today.He had his pacemaker placed on 07/10/24 in [place]. 07/20/2024 he came in complaining of increase [...] is an 83-year-old gentleman who lives in [place] was referred to our medical oncology office [...] [facility] and the recommended concurrent chemoradiation. [...] with concurrent chemoradiation. Since he lives in [place] he was referred by Dr. Mary Schneider from ENT at [facility] to our medical oncology and radiation oncology at [facility]. He is referred to medical oncology [...] his week 1 of cisplatin. Labs at [facility] on 07/03/24 revealed hgb 13.3, cr is 1.0. He is having his labs here today.He had his pacemaker placed on 07/10/24 in [place]. 07/20/2024 he came in complaining of increase [...] NO concerns voiced at time of intake. [facility] Medical History Medical History Squamous cell carcinoma [...] Heart disease History of stroke [facility] Problem: Diagnosed with Stroke Hypertension Emphysema lung ESRD (end stage renal disease) Sister Cancer [facility] Problem: Diagnosed with Cancer Lymphoma Social History [...] MD DD/ 0957 Signed By: 11/23/24 1026 [facility]07-10-2025 Evaluation note* Diagnosis Onset Date Resolution Status Admit Date Cancer associated pain acuteJuly 2024 7:46amSquamous cell carcinoma of oropharynxacuteJuly 2024 7:46amSquamous cell carcinoma of oropharynxacuteJuly 2024 9:41am Squamous cell carcinoma of oropharynxacuteJuly 2024 10:01amSquamous cell carcinoma of oropharynxacuteAugust 2024 12:32pm [facility] Work Phone: [phone] 345-478507-08-2025 NotePatient Education Endocrinology Blood Glucose Monitoring, Adult [...] Where to find more information ??? The [place] Diabetes Association: diabetes.org ??? The Association of [...] y (more content not included)... 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 Gait Casual gait is normal including [...] in 6 months documented in this encounterCox Walnut LawnYlbyjtzpzz60-33-7991 History of Present illness Narrative* Veena Ross, [...] 5 mg, Daily aspirin 81 mg, Daily sepkwikngm-ahhntrprmlbbh-ialqrilb 50-325-40 MG tablet 1 tablet, Every 4 [...] mellitus with diabetic neuropathy (CMS/HCC) Ventricular tachycardia ([facility]) Social History Tobacco Use Smoking [...] 2005 ablation OTHER SURGICAL HISTORY 2007 sphincterotomy [place] CHOLE[place]STECTOM[place] 02/2020 Laparoscopic Cholecystectomy - [place] IMPLANT ARTIFICIAL SPHINCTER 2017 PROSTATE 2000 TONSILLECTOMY [...] early next week. documented in this encounterCox Walnut LawnGwgnncywoq07-23-7831 Radiology Diagnostic study [facility] [place] [address] [place] [address] CT Scan Report Signed Patient: Jeremie Bennett MR#: [id number] : 1940 Acct:[id number] Age/Sex: 83 / M ADM Date: 5 [...] Gordon M.D. 09/20/2024 8:03 PM Dictation Location: [place] [address] Transcribed By: [facility] 09/20/242002 Dictated By: Rafi Gordon II, MD 09/20/241947 Signed By: 09/20/242002 [facility] Work Phone: 1([phone]) 176-736805-07-2025 Hospital Discharge instructions Additional Instructions Please return [...] testing/monitoring to rule out evidence of possible cancer.[facility] Work Phone: 1(210) 880-769405-01-2025 NotePatient Education Nutrition BMI for Adults Body [...] for Disease Control and Prevention: cdc.gov ??? [place] Heart Association: heart.org ??? National Heart, Lung, and Blood [place]: nhlbi.nih.gov This information is not intended to replace advice given to you by your health care provider. Make sure you discuss any questions you have with your health care provider. Document Revised: 01/21/2023 Document Reviewed: 01/14/2023 [employer] Patient Education ? 2023 [employer] 09-11-2024 History of Present illness Narrative* Mary Schneider MD - 09/11/2024 2:00 PM EDT HEAD AND NECK SURGERY FOLLOW UP [facility] Referring Provider: Dr. Ham HPI I [...] and Dr Lamas (med onc) at [facility] Returns after completion of chemoradiation treatment earlier this month. Weight down to 149 lbs (prior 170 lbs). Swallowing liquids, saw CHIEF NUCLEAR MEDICINE TECHNOLOGIST during treatment, not recently. Had pacemaker replaced. [...] lymph nodes Procedure Note: Diagnostic Flexible Laryngoscopy (89879) Indication: patient symptoms requiring evaluation of pharyngeal/laryngeal/hypopharyngeal [...] s/p completion of chemoradiation treatment at [facility] August 2024 - Doing well overall, scope and exam findings as expected - Recommend continued CHIEF NUCLEAR MEDICINE TECHNOLOGIST therapy, he will do this closer to home - Discussed imaging, he has PET scheduled in November - Will need post-treatment NavDx either now or at next appointment - Discussed NCCN guidelines and ongoing surveillance - Follow up with me in 2-3 months after PET, certainly sooner if any issues Mary Schneider MD documented in this [facility] Work Phone: 1(804) 574-736004-24-2025 Evaluation note* Diagnosis Onset Date Resolution Status [...] of oropharynxacuteJuly 2024 9:41amTongue canceracuteJuly 2024 10:01am [facility] Work Phone: 1([phone]) 710-652804-24-2025 Evaluation note* Diagnosis Onset Date Resolution Status [...] 9:41amSquamous cell carcinoma of oropharynxacuteJuly 2024 10:01am [facility] Work Phone: 1([phone]) 121-583604-07-[address] [address] Discharge Summary Signed Patient: Jeremie Bennett MR#: [id number] : 1940 Acct:[id number] Age/Sex: 83 / M Adm Date: 5 Loc: 3T Room: 3Z9517-[address]: Zeke Brennan MD Copies to: [...] he was discharged home stable condition [facility] with few more days of oral [...] Continuity of Care Document Health Concerns: A [facility] screening has identified you [...] Strong:Four Ways to Beat the Frailty Risk https://www.[email or web address].[email or web address]/health/fhxrffed-dqj-egvlgrnpen/st wx-aowqqq-wbbr- cfgv-ih-cwed-nqx-qqsrqcz-ffiz Exam Physical Exam Vital Signs: Temp Pulse [...] % (Auto) 75.8, Lymph % (Auto) 9.0, [place] % (Auto) 13.6, Eos % (Auto) 1.0, Baso % (Auto) 0.6, Nucleat RBC Rel Count 0.1, Neut # (Auto) 4.7, Lymph # (Auto) 0.6 L, [place] # (Auto) 0.8, Eos # (Auto) 0.1, [...] % (Auto) 77.0, Lymph % (Auto) 10.5, [place] % (Auto) 11.3, Eos % (Auto) 0.7, Baso % (Auto) 0.5, Nucleat RBC Rel Count 0.2, Neut # (Auto) 5.7, Lymph # (Auto) 0.8 L, [place] # (Auto) 0.8, Eos # (Auto) 0.1, Baso # (Auto) 0.0, Monocyte Dist Width 23.19 H, ESR 42 H, PT 12.9, INR 1.1, Lactic Acid 0.8, C-Reactive Prot, Quant Cancelled 08/20/24 12:20: PHA Creatinine Clear 58.71, Sodium 136, Potassium 3.7, Chloride 104, Carbon Doyerob06.4, Anion Gap 10.3, BUN 16, Creatinine 0.85, Est GFR (CKD- EPI) > 60.0, Glucose 106 H, Calcium 8.4 L, Total Bilirubin 0.6, AST 18, ALT 17, Alkaline Phosphatase 66, C-Reactive Prot, Quant 3.3 H, Total Protein 5.9 L, Albumin 3.4 L, Globulin 2.5, Albumin/Globulin Ratio 1.4 Documented By: Zeke Brennan MD 08/21/24 1407 Signed By: 08/21/24 1414 [facility]04-07-2025 [place] [address] Hospitalist Progress Note Signed Patient: Jeremie Bennett MR#: [id number] : 1940 Acct:[id number] Age/Sex: 83 / M Adm Date: Loc: Room: [address] [place] [address] Type: ADM IN Attending Dr: Zeke Brennan MD Copies to: ~ Date of Service: 08/21/2024 Subjective Subjective Narrative: Attending note: I saw the patient personally on the day of encounter. I reviewed the relevant history, and performed the ikm elements of the physical examination. I reviewedthe relevant laboratory workup, radiological studies and the current treatment plan. I formulated the plan of care and confirmed it with the re sident/student/LAST MARKER. This patient presented to the emergency department [...] spray 08/21/24 09:00 08/21/24 09:02 Fluticasone Propionate [place] 120 [place]/16 Gm Bottle INTRANASAL 08/21/25 08:59 2 spray [...] Drops/2.5 Ml Bottle EYE-BOTH 08/21/25 20:59 QPM [facility] Lidocaine/Prilocaine 1 applic 08/20/24 21:59 Lidocaine-Prilocaine Cr 2.5-2.5% 5 Gm Tube TOPICAL 08/20/25 21:58 ONCE PRN pain Metformin HCl 500 mg 08/21/24 08:00 08/21/24 09:00 Metformin 500 Mg Tablet PO 08/21/25 07:59 500 mg DAILY@0800 [facility] Administration Multi-Ingredient Mouthwash/Gargle 10 ml 08/20/24 22:47 [...] 10 Mg Tablet PO 08/21/25 21:59 QHS [facility] Sennosides 8.6 mg 08/20/24 21:59 08/21/24 09:00 [...] 1135 Signed By: 08/21/24 1414 08/21/24 1152 [facility]04-07-2025 Consult note Author Yash Thomas [facility] Medical CenterNote Date/TimeApril 2024 11:10am[place] [address] Infect. Disease Consult Note Signed Patient: Jeremie Bennett MR#: [id number] : 1940 Acct:[id number] Age/Sex: 83 / M Adm Date: 5 Loc: Room: [address] [place] [address] Type: ADM IN Attending Dr: Zeke Brennan [...] at 10 PM CC: Zeke Brennan MD [facility] Medical History Pacemaker Prostate cancer surgery Neuropathy [...] (end stage renal disease) Sister Cancer [facility] Problem: Diagnosed with Cancer Lymphoma Social History [...] 81 Mg Tab.Chew) 81 mg PO DAILY [facility] Stop: 08/21/25 08:59 Last Admin: 08/21/24 09:01 Dose: 81 mg Atorvastatin Calcium (Atorvastatin 20 Mg Tablet) 20 mg PO QPM CINTHIA Stop: 08/21/25 20:59 Clopidogrel Bisulfate (Clopidogrel Bisulfate 75 Mg Tablet) 75 mg PO DAILY [facility] Stop: 08/21/25 08:59 Last Admin: 08/21/24 09:00 Dose: 75 mg Dorzolamide HCl (Dorzolamide 2% Op Soln 200 Drops/10 Ml Bottle) 1 drops EYE-BOTH BID [facility] Stop: 08/21/25 08:59 Last Admin: 08/21/24 09:04 Dose: 1 drops Famotidine (Famotidine 20 Mg Tablet) 20 mg PO QPM [facility] Stop: 08/21/25 20:59 Fentanyl (Fentanyl Patch 12 Mcg/Hour Patch.Td72) 12 mcg TRANSDERML Q72HR [facility]; Protocol Fluticasone Propionate (Fluticasone Propionate [place] 120 [place]/16 Gm Bottle) 2 spray INTRANASAL QAMSCH Stop: 08/21/25 08:59 Last Admin: 08/21/24 09:02 Dose: 2 spray Ceftriaxone Sodium (Rocephin) 1 gm in 50 mls @ 100 mls/hr IV QHS [facility] Isosorbide Mononitrate (Isosorbide Mononitrate 24hr Er 30 Mg Tab.Er.24h) 30 mg PO QAM [facility] Stop: 08/21/25 08:59 Last Admin: 08/21/24 09:00 Dose: 30 mg Latanoprost (Latanoprost 0.005% Op Soln 50 Drops/2.5 Ml Bottle) 1 drops EYE-BOTH QPM [facility] Stop: 08/21/25 20:59 Lidocaine/Prilocaine (Lidocaine-Prilocaine Cr 2.5-2.5% 5 Gm Tube) 1 applic TOPICAL ONCE PRN PRN Reason: pain Stop: 08/20/25 21:58 Metformin HCl (Metformin 500 Mg Tablet) 500 mg PO DAILY@0800 [facility] Stop: 08/21/25 07:59 Last Admin: 08/21/24 09:00 Dose: 500 mg Multi-Ingredient Mouthwash/Gargle (Magic Mouthwash With Lidocaine) 10 ml PO QIDPRN PRN Reason: mucositis Stop: 08/20/25 22:46 Nystatin (Nystatin Susp 500,000 Unit/5 Ml Udc) 500,000 unit PO QID [facility] Stop: 08/21/25 08:59 Last Admin: 08/21/24 09:01 Dose: 500,000 unit Olanzapine (Olanzapine 2.5 Mg Tablet) 2.5 mg PO BID [facility] Stop: 08/21/25 08:59 Last Admin: 08/21/24 09:00 Dose: 2.5 mg Ondansetron HCl (Ondansetron Odt 4 Mg Tab.Rapdis) 8 mg PO Q8HR PRN PRN Reason: nausea and vomiting Stop: 08/20/25 22:49 Oxycodone HCl (Oxycodone Ir 5 Mg Tablet) 10 mg PO Q4HR PRN PRN Reason: pain Last Admin: 08/21/24 09:01 Dose: 10 mg Pantoprazole Sodium (Pantoprazole 40 Mg Tablet.Dr) 40 mg PO BID [facility] Stop: 08/21/25 08:59 Last Admin: 08/21/24 09:00 Dose: 40 mg Rivaroxaban (Rivaroxaban 10 Mg Tablet) 10 mg PO QHS [facility] Stop: 08/21/25 21:59 Sennosides (Sennosides 8.6 Mg [...] 25 Mg Capsule) 25 mg PO BID [facility] Stop: 08/21/25 08:59 Last Admin: 08/21/24 09:00 [...] signed by MD Yash Thomas> 08/21/24 1110 [facility] Work Phone: 1(962) 299-873804-07-2025 [place] [address] Infect. Disease Consult Note Signed Patient: Jeremie Bennett MR#: [id number] : 1940 Acct:[id number] Age/Sex: 83 / M Adm Date: 5 Loc: Room: [address] [place] [address] Type: ADM IN Attending Dr: Zeke Brennan [...] at 10 PM CC: Zeke Brennan MD [facility] Medical History Pacemaker Prostate cancer surgery Neuropathy [...] 81 Mg Tab.Chew) 81 mg PO DAILY [facility] Stop: 08/21/25 08:59 Last Admin: 08/21/24 09:01 Dose: 81 mg Atorvastatin Calcium (Atorvastatin 20 Mg Tablet) 20 mg PO QPM [facility] Stop: 08/21/25 20:59 Clopidogrel Bisulfate (Clopidogrel Bisulfate 75 Mg Tablet) 75 mg PO DAILY [facility] Stop: 08/21/25 08:59 Last Admin: 08/21/24 09:00 Dose: 75 mg Dorzolamide HCl (Dorzolamide 2% Op Soln 200 Drops/10 Ml Bottle) 1 drops EYE-BOTH BID [facility] Stop: 08/21/25 08:59 Last Admin: 08/21/24 09:04 Dose: 1 drops Famotidine (Famotidine 20 Mg Tablet) 20 mg PO QPM [facility] Stop: 08/21/25 20:59 Fentanyl (Fentanyl Patch 12 Mcg/Hour Patch.Td72) 12 mcg TRANSDERML Q72HR [facility]; Protocol Fluticasone Propionate (Fluticasone Propionate [place] 120 [place]/16 Gm Bottle) 2 [facility] Stop: 08/21/25 08:59 Last Admin: 08/21/24 09:02 Dose: 2 spray Ceftriaxone Sodium (Rocephin) 1 gm in 50 mls @ 100 mls/hr IV QHS [facility] Isosorbide Mononitrate (Isosorbide Mononitrate 24hr Er 30 Mg Tab.Er.24h) 30 mg PO QAM [facility] Stop: 08/21/25 08:59 Last Admin: 08/21/24 09:00 Dose: 30 mg Latanoprost (Latanoprost 0.005% Op Soln 50 Drops/2.5 Ml Bottle) 1 drops EYE-BOTH QPM [facility] Stop: 08/21/25 20:59 Lidocaine/Prilocaine (Lidocaine-Prilocaine Cr 2.5-2.5% 5 Gm Tube) 1 applic TOPICAL ONCE PRN PRN Reason: pain Stop: 08/20/25 21:58 Metformin HCl (Metformin 500 Mg Tablet) 500 mg PO DAILY@0800 [facility] Stop: 08/21/25 07:59 Last Admin: 08/21/24 09:00 [...] 40 Mg Tablet.Dr) 40 mg PO BID [facility] Stop: 08/21/25 08:59 Last Admin: 08/21/24 09:00 Dose: 40 mg Rivaroxaban (Rivaroxaban 10 Mg Tablet) 10 mg PO QHS [facility] Stop: 08/21/25 21:59 Sennosides (Sennosides 8.6 Mg [...] 10 Ml Syringe) 10 ml IV-PUSH Q8H [facility] Stop: 08/20/25 19:44 Last Admin: 08/21/24 03:06 Dose: Not Given Sotalol HCl (Sotalol 80 Mg Tablet) 40 mg PO BID [facility] Stop: 08/21/25 08:59 Last Admin: 08/21/24 09:01 Dose: 40 mg Tizanidine HCl (Tizanidine 4 Mg Tablet) 4 mg PO QPM [facility] Stop: 08/21/25 20:59 Zonisamide (Zonisamide 25 Mg Capsule) 25 mg PO BID [facility] Stop: 08/21/25 08:59 Last Admin: 08/21/24 09:00 [...] MD 08/21/24 1053 Signed By: 08/21/24 1110 [facility]04-07-2025 Radiology Diagnostic study note [facility] Main [place] [address] [place], [place] [id number] CT Scan Report Signed Patient: Jeremie Bennett MR#: [id number] : 1940 Acct:[id number] Age/Sex: 83 / M ADM Date: 5 Loc: Room: [address] [place] [address] Type: ADM IN Attending Dr: Jaiden Nance [...] 5:58 AM Dictation Location: RADIO-PC-20 Transcribed By: [facility] 08/21/2458 Dictated By: Christian Melton DO 08/21/24 0555 Signed By: 08/21/24 0558 [facility]03-26-2025 Progress note Author Debora Wild [facility] CenterNote Date/TimeMarch 2024 10:25[place] [id number] Palliative Medicine Encounter Patient: Jeremie Bennett MR#: [id number] : 1940 Acct:[id number] Age/Sex: 83 / M Copies to: RAYSHAWN [...] tablet 81 mg PO DAILY 06/14/24 08/09/24 fsvlpab-ohtzksqaoseib-wyiopfqj 250 1 tab PO Q4-6H PRN pain [...] Alcohol Substance Abuse Comment: rare alcohol use [place] Symptom Assessment Scale Pain: throat pain controlled [...] recorder, note dictated by Debora Wild APRN, LAST MARKER-C ACHPN Dictated By: Debora Wild APRN DD/ 0945 Signed By: <Electronically signed by RAYSHAWN Wild> 08/09/24 [facility]3 [facility] Work Phone: 1(198) 381-522603-26-2025 [place] [address] Palliative Medicine Encounter Patient: Jeremie Bennett MR#: [id number] : 1940 Acct:[id number] Age/Sex: 83 / M Copies to: RAYSHAWN [...] tablet 81 mg PO DAILY 06/14/24 08/09/24 vwrxxnj-pjxyxkbvngngt-svyxlqkm 250 1 tab PO Q4-6H PRN pain [...] tabs 08/09/24 Is patient having pain?: Yes [facility] Medical History (Updated 08/09/24 @ 09:38 by Viola Adan [facility]) Pacemaker Prostate cancer surgery Neuropathy Vertigo Migraine [...] Alcohol Substance Abuse Comment: rare alcohol use [place] Symptom Assessment Scale Pain: throat pain controlled [...] recorder, note dictated by Debora Wild APRN, LAST MARKER-C ACHPN Dictated By: Debora Wild APRN DD/ 0945 Signed By: 08/09/[address] [place], [place] 7135003-12-2025 Progress note Author Maru Ma [facility] CenterNote Date/TimeMarch 2024 12:02pm[place] [address] Palliative Medicine Encounter Patient: Jeremie Bennett MR#: [id number] : 1940 Acct:[id number] Age/Sex: 83 / M Copies to: DO [...] tablet 81 mg PO DAILY 06/14/24 07/26/24 xhmlmzg-knsezsehsdktl-lklyfbyj 250 1 tab PO Q4-6H PRN pain [...] Heart disease History of stroke [facility] Problem: Diagnosed with Stroke Hypertension Emphysema lung ESRD (end stage renal disease) Sister Cancer [facility] Problem: Diagnosed with Cancer Lymphoma Social History Smoking Status: Former smoker Tobacco Type: cigarettes Substance Use Type: Alcohol Substance Abuse Comment: rare alcohol use [place] Symptom Assessment Scale See above Exam Exam [...] <Electronically signed by FELLOW Mario El> 07/26/24 7105 [facility] Work Phone: 1(382) 927-773103-12-2025 [place] [address] Palliative Medicine Encounter Patient: Jeremie Bennett MR#: [id number] : 1940 Acct:[id number] Age/Sex: 83 / M Copies to: DO [...] tablet 81 mg PO DAILY 06/14/24 07/26/24 arxcjhs-ppwqhsfanfifk-tcjlgxqw 250 1 tab PO Q4-6H PRN pain [...] QAM 07/20/24 07/26/24 tablet,extended release 24 hr [facility] Medical History (Updated 07/24/24 @ 13:52 by [...] (end stage renal disease) Sister Cancer [facility] Problem: Diagnosed with Cancer Lymphoma Social History Smoking Status: Former smoker Tobacco Type: cigarettes Substance Use Type: Alcohol Substance Abuse Comment: rare alcohol use [place] Symptom Assessment Scale See above Exam Exam [...] 0833 Signed By: 07/26/24 1202 07/26/24 0944 [facility]03-12-2025 Evaluation note* Diagnosis Onset Date Resolution Status Admit Date Squamous cell carcinoma of oropharynx acuteJulch 2024 8:13amCancer associated painacuteMarch 2024 8:22am NauseaacuteMarch 2024 8:22amSquamous cell carcinoma of oropharynxacute July 26, 2024 8:22am [facility] Work Phone: [phone] 121-132703-12-2025 Evaluation note* Diagnosis Onset Date Resolution Status Admit Date Squamous cell carcinoma of oropharynx acuteJulch 2024 8:13amCancer associated painacuteMarch 2024 8:22am NauseaacuteMarch 2024 8:22amSquamous cell carcinoma of oropharynxacute July 26, 2024 8:22amCancer associated painacuteMarch 2024 7:29am ConstipationacuteMarch 2024 7:29amSquamous cell carcinoma of oropharynx acuteMarch 2024 7:29amThrush, oralacuteMarch 2024 7:29am [facility] Work Phone: [phone] 663-187703-12-2025 Evaluation note* Diagnosis Onset Date Resolution Status [...] 7:51amSquamous cell carcinoma of oropharynxacuteMarch 2024 9:23am [facility] Work Phone: [phone]) 926-991103-12-2025 Evaluation note* Diagnosis Onset Date Resolution Status [...] 2024 7:59amSquamous cell carcinoma of oropharynxacuteApr2024 7:59am [facility] Work Phone: [phone]) 114-915703-12-2025 Evaluation note* Diagnosis Onset Date Resolution Status [...] 7:59amFeveracuteApril 2024 7:35pmImmunosuppressionacuteApril 2024 7:35pmPneumoniaacuteApril 2024 7:35pm [facility] Work Phone: 1([phone]) 226-151103-12-2025 Evaluation note* Diagnosis Onset Date Resolution Status [...] 7:35pmSquamous cell carcinoma of oropharynxacuteApril 2024 7:35pm [facility] Work Phone: 1([phone]) 970-989303-12-2025 Evaluation note* Diagnosis Onset Date Resolution Status [...] 9:55amSquamous cell carcinoma of oropharynxacuteApril 2024 9:55am [facility] Work Phone: [phone]) [phone] Evaluation note* Diagnosis Onset Date Resolution Status [...] of oropharynxacuteMay 2024 2:36pmThrush, oralacuteMay 2024 2:36pm [facility] Work Phone: 1([phone]) 316-475503-05-2025 NoteUTP Cardiovascular Medicine [facility] Patient here for follow-up after his [...] a provider in 3 months. Boy Buitrago APRN-[facility]Sum[facility]02-26-2025 [facility]UnR[facility] [place] [address] Cancer Center Note Signed Patient: Jeremie Bennett MR#: [id number] : 1940 Acct:[id number] Age/Sex: 83 / M Type: REG AMB [...] his week 1 of cisplatin. Labs at [facility] on 07/03/24 revealed hgb 13.3, cr is 1.0. He is having his labs here today.He had his pacemaker placed on 07/10/24 in [place]. PLAN: proceed with week 2 cisplatin tomorrow [...] is an 83-year-old gentleman who lives in [facility] was referred to our medical [...] board [facility] and the recommended concurrent chemoradiation. [...] with concurrent chemoradiation. Since he lives in [place] he was referred by Dr. Mary Schneider from ENT at [facility] to our medical oncology and radiation oncology at [facility]. He is referred to medical oncology [...] his week 1 of cisplatin. Labs at [facility] on 07/03/24 revealed hgb 13.3, cr is 1.0. He is having his labs here today.He had his pacemaker placed on 07/10/24 in [place]. Rest of 14 point systems were reviewed [...] PO QAM aspirin 81 mg PO DAILY xtjbwhn-uzmzoqzuihgdo-bdbyustr 250-250-65 mg (Excedrin Migraine) 1 tab PO [...] other concerns voiced at time of intake. [facility] Medical History Medical History (Updated 07/06/24 @ [...] Heart disease History of stroke [facility] Problem: Diagnosed with Stroke Hypertension Emphysema lung ESRD (end stage renal disease) Sister Cancer [facility] Problem: Diagnosed with Cancer Lymphoma Social History [...] MD DD/ 0837 Signed By: 07/12/24 0920 [facility]02-24-2025 NotePACEMAKER GENERATOR REPLACEMENT PROCEDURE [...] 4. Doxycycline 100mg bid x 2 weeks Stacye Patel MD [facility]UnMar[facility]02-20-2025 Progress note Author Debora Wild [facility] CenterNote Date/TimeFebruary 2024 11:40am [place] [address] Palliative Medicine Encounter Patient: Jeremie Bennett MR#: [id number] : 1940 Acct:[id number] Age/Sex: 83 / M Copies to: RAYSHAWN [...] tablet 81 mg PO DAILY 06/14/24 06/22/24 vwuuyia-mojhycnmchkhd-pkfvhhop 250 1 tab PO Q4-6H PRN pain [...] (psyllium husk)) Is patient having pain?: No [facility] (Updated 07/06/24 @ [...] Alcohol Substance Abuse Comment: rare alcohol use [place] Symptom Assessment Scale Pain: intermittent scratchy throat/ [...] mins #about Jeremie: Kaya moved her from [facility] Exam Exam General - A&O, accompanied by [...] recorder, note dictated by Debora Wild APRN, LAST MARKER-C ACHPN Dictated By: Debora Wild APRN DD/ 0858 Signed By: <Electronically signed by RAYSHAWN Wild> 07/06/24 1140 [facility] Work Phone: 1(596) 746-755602-20-2025 [place] [address] Palliative Medicine Encounter Patient: Jeremie Bennett MR#: [id number] : 1940 Acct:[id number] Age/Sex: 83 / M Copies to: RAYSHAWN [...] tablet 81 mg PO DAILY 06/14/24 06/22/24 bvbwyvi-qiqgcxtnqwjns-fafjtwkg 250 1 tab PO Q4-6H PRN pain [...] (psyllium husk)) Is patient having pain?: No [facility] Medical History (Updated 07/06/24 @ [...] Alcohol Substance Abuse Comment: rare alcohol use [place] Symptom Assessment Scale Pain: intermittent scratchy throat/ [...] mins #about Jeremie: Kaya moved her from [facility] Exam Exam General - A&O, accompanied by [...] recorder, note dictated by Debora Wild APRN, LAST MARKER-C ROBERTPN Dictated By: Debora Wild APRN DD/ 0858 Signed By: 07/06/24 1140 [facility]02-18-2025 NoteNurse Consultation Note Reason [...] PRN, 1 refills fluticasone Nasal 0.05 mg/inh [place], See Instructions furosemide 20 mg Tab, 20 [...] influenza virus vaccine, inactivated 04/12/2023 Recorded SARSCoV2 mRNA(gwxgdwvqq-xmxm-qbqtkv) vac 11/25/2021 Recorded SARS-CoV-2 (COVID-19) mRNA BNT-162b2 vax 03/06/2021 Recorded 2022-11-03: TPV80 influenza virus vaccine, inactivated 02/18/2021 Recorded SARS-CoV-2 (COVID-19) mRNA BNT-162b2 vax 06/27/2020 Recorded SARS-CoV-2 (COVID-19) Ad26 vaccine 06/27/2020 Recorded SARS-CoV-2 (COVID-19) mRNA BNT-162b2 vax 06/06/2020 Recorded SARS-CoV-2 (COVID-19) Ad26 vaccine 06/06/2020 Recorded influenza virus vaccine, inactivated 02/14/2020 Recorded influenza, unspecified formulation 01/22/2018 Recorded pneumococcal 13-valent vaccine 01/30/2014 [facility] NoteNurse Consultation Note Reason for [...] PRN, 1 refills fluticasone Nasal 0.05 mg/inh [place], See Instructions furosemide 20 mg Tab, 20 [...] influenza virus vaccine, inactivated 04/12/2023 Recorded SARSCoV2 mRNA(ghmxoheli-dlbz-eadqrq) vac 11/25/2021 Recorded SARS-CoV-2 (COVID-19) mRNA BNT-162b2 vax 03/06/2021 Recorded 2022-11-03: TPV80 influenza virus vaccine, inactivated 02/18/2021 Recorded SARS-CoV-2 (COVID-19) mRNA BNT-162b2 vax 06/27/2020 Recorded SARS-CoV-2 (COVID-19) Ad26 vaccine 06/27/2020 Recorded SARS-CoV-2 (COVID-19) mRNA BNT-162b2 vax 06/06/2020 Recorded SARS-CoV-2 (COVID-19) Ad26 vaccine 06/06/2020 Recorded influenza virus vaccine, inactivated 02/14/2020 Recorded influenza, unspecified formulation 01/22/2018 Recorded pneumococcal 13-valent vaccine 01/30/2014 [facility] History of Present illness Narrative* LINWOOD Morgan - 06/23/2024 4:00 PM EST History: Patient was referred for an audiological evaluation. A baseline hearing exam was recommended prior to chemo treatment. Patient sees an ENT at [facility]. Patient is aware of hearing loss, wearing [...] function Impressions: Results to [facility]. Faustin at [facility] per patient. documented in this encounterCox Walnut [id number] History of Present illness Narrative* Matteo Bell MD - 06/20/2024 3:15 PM EST Images from the original note were not included. Jeremie Bennett 1940 Jeremie Bennett is a 83 y.o. male presents with chief complaint of Consult (Port - Ref Dr LAMAS Tonguecancer/Having pacemaker generator change on 07-10-24 / [place] cardiology Dr Patel.) HPI: Mr. 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/27/2024 Migraine headache ([facility]/HCC) Mixed incontinence 01/27/2024 Other specified disorders of synovium, right ankle and foot Pain management Pain of upper abdomen 04/03/2022 Paronychia of great toe bilateral Peptic ulcer 04/03/2022 Personal history of other medical treatment 04/2018 body map scanned in for biopsies and trtm Prostate cancer ([facility]) Right flank pain 04/03/2022 Sinus tarsi syndrome of right foot Sleep apnea Toe pain, right Type 2 diabetes mellitus with diabetic neuropathy ([facility]/HCC) Ventricular tachycardia ([facility]) Social History Tobacco Use Smoking [...] 2005 ablation OTHER SURGICAL HISTORY 2007 sphincterotomy [place] CHOLECYSTECTOM[place] 02/2020 Laparoscopic Cholecystectomy - [place] IMPLANT ARTIFICIAL SPHINCTER 2017 PROSTATE 2000 TONSILLECTOMY [...] on the right. documented in this encounterCox Walnut [id number] Progress note Author Talib Faustin [facility] CenterNote Date/TimeJanuary 2024 11:06[facility] [place] [address] Cancer Center Note Signed Patient: Jeremie Bennett MR#: [id number] : 1940 Acct:[id number] Age/Sex: 83 / M Type: REG AMB [...] is an 83-year-old gentleman who lives in [facility] was referred to our medical [...] with concurrent chemoradiation. Since he lives in [place] he was referred by Dr. Mary Schneider from ENT at [facility] to our medical oncology and radiation oncology at [facility]. He is referred to medical oncology [...] PO DAILY aspirin 81 mg PO DAILY vjoojtb-jrvlxwvcdvuji-vnqbkbfv 250-250-65 mg (Excedrin Migraine) 1 tab PO [...] yellow fever card, magnet, caregiver resource list, [facility] nutrition guide, and cancer rehabilitation pamphlet [...] to have pace maker replaced 07/10/[address] [facility]. [facility] Medical History Medical History (Updated 06/14/24 @ [...] signed by Talib Faustin MD> 06/14/24 1106 [facility] Work Phone: 1(996) 222-356801-29-2025 Evaluation note* Diagnosis Onset Date Resolution Status Admit Date Squamous cell carcinoma of oropharynx acuteJanuary 2024 9:25amTongue canceracuteJanuary 2024 9:25am Squamous cell carcinoma of oropharynxacuteJanuary 2024 10:28am [facility] Work Phone: [phone] 358-245901-29-2025 Evaluation note* Diagnosis Onset Date Resolution Status Admit Date Squamous cell carcinoma of oropharynx acuteJanuary 2024 9:25amTongue canceracuteJanuary 2024 9:25am Squamous cell carcinoma of oropharynxacuteJanuary 2024 10:28amEncounter for palliative careacuteFebruary 2024 8:00amSquamous cell carcinoma of oropharynxacuteFebruary 2024 8:00am [facility] Work Phone: [phone] Evaluation note* Diagnosis Onset Date Resolution Status Admit Date Squamous cell carcinoma of oropharynx acuteJanuary 2024 9:25amTongue canceracuteJanuary 2024 9:25am Squamous cell carcinoma of oropharynxacuteJanuary 2024 10:28amEncounter for palliative careacuteFebruary 2024 8:00amSquamous cell carcinoma of oropharynxacuteFebruary 2024 8:00amCancer associated painacuteFebruary 2024 7:36amNauseaacuteFebruary 2024 7:36amSquamous cell carcinoma of oropharynxacuteFebruary 2024 7:36amSquamous cell carcinoma of oropharynx acuteFebruary 2024 8:29amTongue canceracuteFebruary 2024 8:29am [facility] Work Phone: 1([phone] [facility] [place] [address] Cancer Center Note Signed Patient: Jeremie Bennett MR#: [id number] : 1940 Acct:[id number] Age/Sex: 83 / M Type: REG AMB [...] is an 83-year-old gentleman who lives in [facility] was referred to our medical [...] board at [facility] and the recommended concurrent chemoradiation. [...] with concurrent chemoradiation. Since he lives in [place] he was referred by Dr. Mary Schneider from ENT at [facility] to our medical oncology and radiation oncology at [facility]. He is referred to medical oncology [...] PO DAILY aspirin 81 mg PO DAILY mjvgubz-rrnfwgfgopfds-takpqxhi 250-250-65 mg (Excedrin Migraine) 1 tab PO [...] yellow fever card, magnet, caregiver resource list, [facility] nutrition guide, and cancer rehabilitation pamphlet [...] to have pace maker replaced 07/10/[address] [facility]. [facility] Medical History Medical History (Updated 06/14/24 [...] MD DD/ 0953 Signed By: 06/14/24 1106 [facility]01-20-2025 Hospital Discharge instructions* Discharge [...] questions related to your procedure: Please call [phone] between the hours of 7:00am-5:00pm Wednesday through Wednesday. Please call [phone] after 5:00pm and on weekends and holidays. In the event of an emergency call 911 or go to your nearest emergency room. documented in this [facility] Work Phone: 1(657) 311-651201-20-2025 Miscellaneous Notes* Post-Procedure Note - Juan Albright [...] PACS Procedure performed by: Juan Albright MD Cad Technician(s): Dr. Gaby Perez MD Estimated Blood Loss [...] Albright MD, PGY-6 Interventional Radiology IR pager: [phone] NON-Urgent harpoon engagement planning operator weekends and after hours weekdays (5pm - 5am) IR pager: [phone] Urgent & emergent harpoon engagement planning operator weekends and after hours weekdays (5pm-7am) IR pager: [phone] * Pre-Procedure Note - Juan Albright MD [...] by mouth once daily., Disp: , Rfl: nqgyddetvq-iotciwgmumvdk-bmum 50-325-40 mg tablet, Take 1 tablet by [...] been discussed with the patient and/or their arborist representative. All questions answered and they agree to proceed. Juan Albright MD, PGY-6 Vascular & Interventional Radiology IR pager: [phone] NON-Urgent harpoon engagement planning operator weekends and after hours weekdays (5pm - 5am) IR pager: [phone] Urgent & emergent harpoon engagement planning operator weekends and after hours weekdays (5pm-7am) IR pager: [phone] documented in this encounterWhite Hospital Work Phone: 1(315) 103-469801-20-2025 Note* Post-Procedure Note - Juan Albright MD [...] PACS Procedure performed by: Juan Albright MD Cad Technician(s): Dr. Gaby Perez MD Estimated Blood Loss [...] Albright MD, PGY-6 Interventional Radiology IR pager: [phone] NON-Urgent harpoon engagement planning operator weekends and after hours weekdays (5pm - 5am) IR pager: [phone] Urgent & emergent harpoon engagement planning operator weekends and after hours weekdays (5pm-7am) IR pager: [phone] [facility] Work Phone: 1(956) 854-136701-20-2025 Note* Pre-Procedure Note - Juan Albright MD [...] by mouth once daily., Disp: , Rfl: levqsqqvoh-gwnalotggotjs-swer 50-325-40 mg tablet, Take 1 tablet by [...] been discussed with the patient and/or their arborist representative. All questions answered and they agree to proceed. Juan Albright MD, PGY-6 Vascular & Interventional Radiology IR pager: [phone] NON-Urgent harpoon engagement planning operator weekends and after hours weekdays (5pm - 5am) IR pager: [phone] Urgent & emergent harpoon engagement planning operator weekends and after hours weekdays (5pm-7am) IR pager: [phone] [facility] Work Phone: 1(625) 438-535301-14-2025 History of Present illness Narrative* Mary Schneider MD - 05/30/2024 11:45 AM EST HEAD AND NECK SURGERY FOLLOW UP [facility] [place] Referring Provider: Dr. Ham HPI I had [...] lymph node Procedure Note: Diagnostic Flexible Laryngoscopy (88134) Indication: patient symptoms requiring evaluation of pharyngeal/laryngeal/hypopharyngeal [...] proceed with concurrent chemoradiation. [place] lives in [place], referrals to med onc and rad onc placed today to be setup locally at [facility]. I have also reached out to Dr Gray - He will need iris dx testing done prior to starting treatment - I will follow up the biopsy and call him with results - I will see him after treatment for cancer surveillance Mary Schneider MD 24 modifier used due to extensive discussion and coordination of cancer treatment documented in this encounterWhite Hospital Work Phone: 1(900) 128-960512-26-2024 Hospital Discharge instructions* Discharge Instructions* Jessica Carreon [...] to your nearest ED. documented in this encounterWhite Hospital Work Phone: 1([phone]) 855-740712-26-2024 Note* Op Note - Mary Schneider MD - 05/11/2024 7:52 AM EST GLOSSECTOMY, ROBOT-ASSISTED, ORAL APPROACH Operative Note Date: 05/11/2024 OR Location: 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] Procedures Direct Laryngoscopy 37602 - [place] LARYNGOSCOPY W/WO TRACHEOSCOPY DX EXCEPT Bronchoscopy 25886 - [place] [facility] FLU[facility] GDNCE DX W/CELL WASHG SPX Esophagoscopy 32295 - [place] ESOPHAGOSCOPY FLEXIBLE TRANSORAL DIAGNOSTIC Surgeons Panel 1: * Mary Schneider - Primary Panel 2: * Mary Schneider - Primary Resident/Fellow/Other Cad Technician: Surgeons and Role: Panel 1: * Riana Vela PA-C - Resident - Assisting Staff: Certified Anesthesiologist Assistant: Jameel Camargo Person: Simon Camargo Person: Reggie Anesthesia Staff: Anesthesiologist: Gabo Munoz MD Icu Staff Nurse: Candice Aceves MD; Delvis Santana MD Procedure [...] scrubbed for the entire procedure. Mary Schneider [facility] Work Phone: 1(562) 627-963512-26-2024 Miscellaneous Notes* Op Note - Mary Schneider MD - 05/11/2024 7:52 AM EST GLOSSECTOMY, ROBOT-ASSISTED, ORAL APPROACH Operative Note Date: 05/11/2024 OR Location: 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] Procedures Direct Laryngoscopy 45859 - [place]ARY[place]OSCOPY W/WO TRACHEOSCOPY DX EXCEPT Bronchoscopy 07101 - [place] [facility] INCL FLUOR GDNCE DX W/CELL WASHG SPX Esophagoscopy 15339 - [place] ESOPHAGOSCOPY FLEXIBLE TRANSORAL DIAGNOSTIC Surgeons Panel 1: * Mary Schneider - Primary Panel 2: * Mary Schneider - Primary Resident/Fellow/Other Cad Technician: Surgeons and Role: Panel 1: * Riana Vela PA-C - Resident - Assisting Staff: Certified Anesthesiologist Assistant: Jameel Camargo Person: Simon Camargo Person: Reggie Anesthesia Staff: Anesthesiologist: Gabo Munoz MD Icu Staff Nurse: Candice Aceves MD; Delvis Santana MD Procedure [...] entire procedure. Mary Schneider documented in this [facility] Work Phone: 1(326) 532-651412-26-2024 History and physical note* Jessica Carreon MD [...] Schneider MD at 05/11/2024 6:34 AM EST [facility] Work Phone: 1(125) 327-278512-26-2024 History and physical note* Jessica Carreon MD [...] 05/11/2024 6:34 AM EST documented in this [facility] Work Phone: 1(237) 836-541712-24-2024 History of Present illness Narrative* Mary Guevara - 05/09/2024 10:02 AM EST Pharmacy Medication History Review Jeremie Bennett is a 83 y.o. male who is planned to be admitted for Malignant neoplasm of floor of mouth. Pharmacy called the patient prior to their scheduled procedure and reviewed the patient's lqhfo-cv-ixymgixxn medications for accuracy. Medications ADDED: none Medications [...] used to complete the med history include: [facility] Pharmacy dispense history Patient interview Chart Review Care Everywhere Below are additional concerns with the patient's BRAILLE TRANSCRIBER list. Patient states they are taking #1 tablet of metformin XR 500mg once daily. L.F. 02/24/24 #200/100d (prescription states #1BID) Patient states they are taking #1 tablet of rosuvastatin 10mg daily. L.F. 05/31/23 #90/90d. There is no recent fill history to confirm Mary Guevara [facility] Please reach out via Secure Chat for questions documented in this encounterWhite Hospital Work Phone: [phone]) 391-313812-10-2024 NoteUT Electrophysiology Consult Note [place] [facility] - [facility] Reason for visit: Device at [facility] HPI: eJremie Bennett is a 83 y.o. year old with past medical history of hypertension, hyperlipidemia CAD was noted to have a pacemaker placed by Dr. Shi for ?SND which is approaching [facility]. He has previously been seen [...] Tobacco Use: Medium Risk (05/11/2024) [facility] from [facility] Patient History Smoking Tobacco Use: Former Smokeless Tobacco Use: Former Passive Exposure: Not on file Alcohol Use: Not on file Financial Resource Strain: Not on file Food Insecurity: Not on file Transportation Needs: Not on file Physical Activity: Not on file Stress: Not on file Social Connections: Not on file Intimate Partner Violence: Unknown (07/08/2023) [place] Safety & Environment Fear of Current or Ex-Partner: Not on file Emotionally Abused: Not on file Physically Abused: Not on file Sexually Abused: Not on file Physically or Sexually Abused: Not on file Depression: Not at risk (04/07/2024) Received from [facility] PHQ-2 Patient Health Questionnaire-2 Score: 0 [...] TSH , T3 TO (more content not included)...[facility]12-02-2024 NotePatient Education Nutrition BMI for Adults Body [...] for Disease Control and Prevention: cdc.gov ??? [employer]: heart.org ??? National Heart, Lung, and Blood [place]: nhlbi.nih.gov This information is not intended to replace advice given to you by your health care provider. Make sure you discuss any questions you have with your health care provider. Document Revised: 01/21/2023 Document Reviewed: 01/14/2023 [employer] Patient Education ? 2023 [employer] 04-07-2024 History of Present illness Narrative* Mary Schneider MD - 04/07/2024 10:45 AM EST HEAD AND NECK SURGERY CONSULT [facility] Referring Provider: Dr. Ham HPI I [...] lymph node Procedure Note: Diagnostic Flexible Laryngoscopy (34247) Indication: patient symptoms requiring evaluation of pharyngeal/laryngeal/hypopharyngeal [...] this, has a pacemaker and seeing applications development consultant soon. Will follow up biopsy and call him with the results Mary Schneider MD documented in this [facility] Work Phone: [phone]) 416-523211-13-2024 History of Present illness Narrative* Luc Ham MD - 03/29/2024 10:20 AM EST Subjective Patient ID: Jeremie Bennett is a 83 y.o. 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) 01/27/2024 BMI 29.0-29.9,adult 01/27/2024 Cardiac dysrhythmia [...] neuropathy associated with type 2 diabetes mellitus ([facility]/HCC) 04/14/2023 Diabetic peripheral neuropathy associated with type 2 diabetes mellitus (CMS/HCC) 01/27/2024 Diverticulosis 01/27/2024 Dysphagia 04/14/2023 Essential hypertension (CMS/HCC) 04/03/2022 Excessive daytime sleepiness 01/27/2024 FH: stomach cancer 04/14/2023 Chronic GERD 01/27/2024 GERD with apnea 01/27/2024 Glaucoma ([facility]/HCC) 04/03/2022 Hemorrhoids 01/27/2024 History of colon polyps 01/27/2024 History of malignant neoplasm of prostate 04/03/2022 [place] (hard of hearing) 04/03/2022 Hypercholesterolemia ([facility]/HCC) 04/03/2022 Hyperlipidemia (CMS/HCC) 04/03/2022 Insomnia 04/03/2022 [...] joints of right foot 01/27/2024 Pancreatic cyst ([facility]/HCC) 04/14/2023 Paresthesia of both hands 01/27/2024 Edema of lower extremity 04/26/2019 Polyneuropathy associated with underlying disease ([facility]/HCC) 01/27/2024 Presence of cardiac pacemaker 03/14/2021 Prostate cancer ([facility]) 04/03/2022 Prostatitis 04/14/2023 Skin cancer 04/03/2022 Swollen lymph nodes 04/14/2023 Thoracic aortic ectasia ([facility]) 01/27/2024 Vitamin D deficiency 04/03/2022 Resolved Ambulatory Problems Diagnosis Date Noted Bloating 01/27/2024 Cellulitis of toe of left foot 01/27/2024 Cellulitis of toe of right foot 01/27/2024 Chest wall pain 04/03/2022 Gallstones 04/03/2022 COVID-19 11/10/2022 Entrapment of left ulnar nerve 01/27/2024 Entrapment of right ulnar nerve 01/27/2024 Fecal soiling 04/03/2022 Fecal urgency 04/14/2023 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 Lower abdominal pain 04/03/2022 [...] Diverticulitis GERD (gastroesophageal reflux disease) HTN (hypertension) ([facility]) Migraine headache ([facility]) Pain management Paronychia of great toe Personal history of other medical treatment 04/2018 Sinus tarsi syndrome of right foot Sleep apnea Toe pain, right Type 2 diabetes mellitus with diabetic neuropathy ([facility]) Past Surgical History: Procedure Laterality Date CARDIAC CATHETERIZATION 08/30/2019 CATARACT EXTRACTION Bilateral CERVICAL FUSION 2016 C3-C4-C5 CHOLECYSTECTOMY HERNIA REPAIR 2002 INSERT / REPLACE / REMOVE PACEMAKER 2015 pacemaker insertion OTHER SURGICAL HISTORY 2004 ablation OTHER SURGICAL HISTORY 2007 sphincterotomy [place] CHOLE[place]STECTOM[place] 02/2020 Laparoscopic Cholecystectomy - [place] IMPLANT ARTIFICIAL SPHINCTER 2017 PROSTATE 2000 TONSILLECTOMY 1970 Allergies Allergen Reactions Niacin Itching and Unknown Wound Dressing Adhesive Unknown Current Outpatient Medications on File Prior to Visit Medication Sig Dispense Refill amLODIPine (Norvasc) 5 MG tablet Take 5 mg by mouth in the morning. aspirin 81 MG EC tablet Take 81 mg by mouth in the morning. vkhwrxtivm-vduolhdfdsgtg-qlwrywnj 50-325-40 MG tablet Take 1 tablet by [...] for surveillance exams. documented in this encounterCox Walnut [id number] History of Present illness Narrative* Kandi Rodriguez, [...] PATIENT PRESENTS WITH AN IMPLANTABLE OR ATTACHED VP MOBILE PRODUCTS: No CREATININE: No results found for: CREAT [...] 1003 PATIENT DISCHARGED TO: Ambulatory patient, left [place] department area. Is this a therapy: No A Diagnostic radioactive procedure has taken place, with no further precautions necessary other than routine body substance precautions. More information regarding radiation safety can be found usingthis link: [email or web address] 20Diagnostic%20Nuclear%20Medicine%[email or web address] SIGNATURE: RT Rodriguez (R) PATIENT NAME: Jeremie Bennett DATE: March 27, 2024 TIME: 10:14 AM PAGER/CONTACT #: documented in this encounterProm[facility]24 NoteHNO ID: [id number] Author: KANDI RODRIGUEZ RT (R) Service: ? [...] PATIENT PRESENTS WITH AN IMPLANTABLE OR ATTACHED VP MOBILE PRODUCTS: No CREATININE: No results found for: CREAT [...] 1003 PATIENT DISCHARGED TO: Ambulatory patient, left [place] department area. Is this a therapy: No A Diagnostic radioactive procedure has taken place, with no further precautions necessary other than routine body substance precautions. More information regarding radiation safety can be found using this link: [email or web address]%[email or web address] SIGNATURE: RT Jennifer(R) PATIENT NAME: Jeremie Bennett DATE: March 27, 2024 TIME: 10:14 AM PAGER/CONTACT #:[facility]10-23-2024 History of Present illness Narrative* [...] neuropathy associated with type 2 diabetes mellitus ([facility]/HCC) 04/14/2023 Diabetic peripheral neuropathy associated with type 2 diabetes mellitus (CMS/HCC) 01/27/2024 Diverticulosis 01/27/2024 Dysphagia 04/14/2023 Essential hypertension (CMS/HCC) 04/03/2022 Excessive daytime sleepiness 01/27/2024 FH: stomach cancer 04/14/2023 Chronic GERD 01/27/2024 GERD with apnea 01/27/2024 Glaucoma ([facility]/HCC) 04/03/2022 Hemorrhoids 01/27/2024 History of colon polyps 01/27/2024 History of malignant neoplasm of prostate 04/03/2022 [place] (hard of hearing) 04/03/2022 Hypercholesterolemia ([facility]/HCC) 04/03/2022 Hyperlipidemia (CMS/HCC) 04/03/2022 Insomnia 04/03/2022 [...] joints of right foot 01/27/2024 Pancreatic cyst ([facility]/HCC) 04/14/2023 Paresthesia of both hands 01/27/2024 Edema of lower extremity 04/26/2019 Polyneuropathy associated with underlying disease ([facility]/HCC) 01/27/2024 Presence of cardiac pacemaker 03/14/2021 Prostate cancer (CMS/[facility]) 04/03/2022 Prostatitis 04/14/2023 Skin cancer 04/03/2022 Swollen lymph nodes 04/14/2023 Thoracic aortic ectasia ([facility]) 01/27/2024 Vitamin D deficiency 04/03/2022 Resolved Ambulatory Problems Diagnosis Date Noted Bloating 01/27/2024 Cellulitis of toe of left foot 01/27/2024 Cellulitis of toe of right foot 01/27/2024 Chest wall pain 04/03/2022 Gallstones 04/03/2022 COVID-19 11/10/2022 Entrapment of left ulnar nerve 01/27/2024 Entrapment of right ulnar nerve 01/27/2024 Fecal soiling 04/03/2022 Fecal urgency 04/14/2023 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 Lower abdominal pain 04/03/2022 [...] Diverticulitis GERD (gastroesophageal reflux disease) HTN (hypertension) (CMS/[facility]) Migraine headache ([facility]) Pain management Paronychia of great [...] 2004 ablation OTHER SURGICAL HISTORY 2007 sphincterotomy [place] CHOLECYSTECTOMY 02/2020 Laparoscopic Cholecystectomy - [place] IMPLANT ARTIFICIAL SPHINCTER 2017 PROSTATE 2000 TONSILLECTOMY 1970 Allergies Allergen Reactions Niacin Itching and Unknown Wound Dressing Adhesive Unknown Current Outpatient Medications on File Prior to Visit Medication Sig Dispense Refill amLODIPine (Norvasc) 5 MG tablet Take 5 mg by mouth in the morning. aspirin 81 MG EC tablet Take 81 mg by mouth in the morning. gxcfdldtya-swaagdgcdexgr-cecqcigk 50-325-40 MG tablet Take 1 tablet by [...] for the primary documented in this encounterNOMS [id number] Telephone encounter Note* Telephone Encounter - Antoinette Ham - 03/06/2024 11:18 AM EDT Pt is scheduled for 03/08/[address] Ham[address] [facility] [id number] Miscellaneous Notes* Telephone Encounter - Antoinette Ham - 03/06/2024 11:18 AM EDT Pt is scheduled for 03/08/[address] Ham. * Telephone Encounter - Luc Ham MD - 03/06/2024 10:18 AM EDT Move up pt's appt documented in this encounterCox Walnut [id number] Telephone encounter Note* Telephone Encounter - Luc Ham MD - 03/06/2024 10:18 AM EDT Move up pt's appt [facility] Work Phone: 1(665) 895-706510-02-2024 History of Present illness Narrative* Luc Ham [...] Diagnosis Date Noted Arteriosclerosis of coronary artery ([facility]) 01/20/2019 Arthritis of ankle, right [...] Colon polyp 01/27/2024 Type 2 diabetes mellitus ([facility]) 01/27/2024 Type 2 diabetes mellitus without complication, without long-term current use of insulin ([facility]) 04/14/2023 Diabetic autonomic neuropathy associated with type 2 diabetes mellitus ([facility]) 04/14/2023 Diabetic peripheral neuropathy associated with type 2 diabetes mellitus ([facility]/HCC) 01/27/2024 Diverticulosis 01/27/2024 Dysphagia 04/14/2023 Essential hypertension ([facility]) 04/03/2022 Excessive daytime sleepiness 01/27/2024 FH: stomach cancer 04/14/2023 Chronic GERD 01/27/2024 GERD with apnea 01/27/2024 Glaucoma ([facility]) 04/03/2022 Hemorrhoids 01/27/2024 History of colon polyps 01/27/2024 History of malignant neoplasm of prostate 04/03/2022 [place] (hard of hearing) 04/03/2022 Hypercholesterolemia (CMS/[facility]) 04/03/2022 Hyperlipidemia (CMS/[facility]) 04/03/2022 Insomnia 04/03/2022 Internal derangement of right knee 01/27/2024 Irregular bowel habits 04/14/2023 Lump on neck 04/14/2023 Migraines (CMS/[facility]) 04/03/2022 Aortic valve regurgitation 04/26/2019 Mitral valve regurgitation 04/26/2019 Neuropathy 04/03/2022 NPH (normal pressure hydrocephalus) ([facility]) 04/03/2022 Central sleep apnea 01/27/2024 [...] reflux disease) HTN (hypertension) (CMS/HCC) Migraine headache (CMS/[facility]) Pain management Paronychia of great [...] 2005 ablation OTHER SURGICAL HISTORY 2007 sphincterotomy [place] CHOLE[place]STECTOM[place] 02/2020 Laparoscopic Cholecystectomy - [place] IMPLANT ARTIFICIAL SPHINCTER 2017 PROSTATE 2000 TONSILLECTOMY 1970 Allergies Allergen Reactions Niacin Itching and Unknown Wound Dressing Adhesive Unknown Current Outpatient Medications on File Prior to Visit Medication Sig Dispense Refill amLODIPine (Norvasc) 5 MG tablet Take 5 mg by mouth in the morning. aspirin 81 MG EC tablet Take 81 mg by mouth in the morning. wdmyyboklm-apdibmxjloscc-ypjtalqj 50-325-40 MG tablet Take 1 tablet by [...] core needle bx documented in this encounterCox Walnut [id number] History of Present illness Narrative* NILAY Morales [...] -he denies any weakness or trouble with computer hardware technician Chronic back/neck pain -his neck pain has been about the same since last visit -he denies pain into the arms -he admits a few CORTEZ -he has 3-4 per month -CORTEZ located occipital -he is wanting an abortive medication -he was on Fiorcet and states this helped -Back pain in low back -he is seeing pain management , Dr. Robins in [place] -he is following up with them next [...] Oral, Daily aspirin 81 mg, Oral, Daily hqhvpledwr-giisygtjqhldz-lyqfxrxv 50-325-40 MG tablet 1 tablet, Oral, Every [...] Daily, Do not crush or chew. Lancets ([employer] ultrasoft) lancets 1 each, Other, As needed, [...] 2005 ablation OTHER SURGICAL HISTORY 2007 sphincterotomy [place] CHOLECYSTECTOMY 02/2020 Laparoscopic Cholecystectomy - [place] IMPLANT ARTIFICIAL SPHINCTER 2017 PROSTATE 2000 TONSILLECTOMY [...] 2+ 2+ Patellar 2+ 2+ Coordination Right: Oatxke-pk-vhdj normal.Left: Zenvbm-oi-vfdv normal. Gait Casual gait is normal including [...] in 6 months documented in this encounterCox Walnut [id number] Telephone encounter Note* Telephone Encounter - Carlitos Beckman - 02/07/2024 9:29 AM EDT Images from the original note were not included. IPMN surveillance. Review OSH images and advise please [facility] Pancreatography 11/09/2023 [facility]09-23-2024 Miscellaneous Notes* Telephone Encounter - Carlitos Beckman - 02/07/2024 9:29 AM EDT Images from the original note were not included. IPMN surveillance. Review OSH images and advise please [facility] Pancreatography 11/09/2023 * Telephone Encounter [...] and it was completed in 12/2023 at [facility]. Our office will request results for Dr. Pringle's review. Follow up will be determined upon Dr. Pringle's review of results. documented in this encounterPromedica [facility]09-[facility] Telephone encounter Note * Telephone Encounter - Carlitos Beckman - 02/04/2024 9:03 AM EDT Surveillance imaging completed at OSH for IPMN surveillance. [facility]09-18-2024 Telephone encounter Note* Telephone Encounter - Carlitos Beckman - 02/02/2024 8:57 AM EDT Call to patient to discuss plan of care. Surveillance imaging needed to evaluate pancreas cyst. Dx: IPMN Per Dr. Vaishali Pringle- recommended repeat MRI in 1 year Last imaging 02/17/2024 Orders placed: MRI Pancreas w/wo IVCON Patient's local GI ordered MRI and it was completed in 12/2023 at [facility]. Our office will request results for Dr. Pringle's review. Follow up will be determined upon Dr. Pringle's review of results. [facility]09-17-2024 History of Present illness Narrative* Luc [...] Colon polyp 01/27/2024 Type 2 diabetes mellitus ([facility]/HCC) 01/27/2024 Type 2 diabetes mellitus without complication, without long-term current use of insulin (CMS/HCC) 04/14/2023 Diabetic autonomic neuropathy associated with type 2 diabetes mellitus (CMS/HCC) 04/14/2023 Diabetic peripheral neuropathy associated with type 2 diabetes mellitus (CMS/HCC) 01/27/2024 Diverticulosis 01/27/2024 Dysphagia 04/14/2023 Essential hypertension (CMS/HCC) 04/03/2022 Excessive daytime sleepiness 01/27/2024 FH: stomach cancer 04/14/2023 Chronic GERD 01/27/2024 GERD with apnea 01/27/2024 Glaucoma (CMS/[facility]) 04/03/2022 Hemorrhoids 01/27/2024 History of colon polyps 01/27/2024 History of malignant neoplasm of prostate 04/03/2022 [place] (hard of hearing) 04/03/2022 Hypercholesterolemia (CMS/HCC) 04/03/2022 Hyperlipidemia (CMS/HCC) 04/03/2022 Insomnia 04/03/2022 Internal derangement of right knee 01/27/2024 Irregular bowel habits 04/14/2023 Lump on neck 04/14/2023 Migraines ([facility]/HCC) 04/03/2022 Aortic valve regurgitation 04/26/2019 Mitral valve regurgitation 04/26/2019 Neuropathy 04/03/2022 NPH (normal pressure hydrocephalus) ([facility]) 04/03/2022 Central sleep apnea 01/27/2024 [...] soiling 04/03/2022 Fecal urgency 04/14/2023 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/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 Lower abdominal pain 04/03/2022 Pain [...] reflux disease) HTN (hypertension) (CMS/HCC) Migraine headache ([facility]) Pain management Paronychia of great toe Personal history of other medical treatment 04/2018 Sinus tarsi syndrome of right foot Sleep apnea Toe pain, right Type 2 diabetes mellitus with diabetic neuropathy (CMS/[facility]) Past Surgical History: Procedure Laterality Date CARDIAC CATHETERIZATION 08/30/2019 CATARACT EXTRACTION Bilateral CERVICAL FUSION 2016 C3-C4-C5 HERNIA REPAIR 2002 INSERT / REPLACE / REMOVE PACEMAKER 2015 pacemaker insertion OTHER SURGICAL HISTORY 2005 ablation OTHER SURGICAL HISTORY 2007 [place]erotomy [place] CHOLE[place]ST[place]OM[place] 02/2020 [place]oscopic Cholecystectomy - [place] IMPLANT ARTIFICIAL SPHINCTER 2017 PROSTATE 2000 TONSILLECTOMY 1970 Allergies Allergen Reactions Niacin Itching and Unknown Wound Dressing Adhesive Unknown Current Outpatient Medications on File Prior to Visit Medication Sig Dispense Refill amLODIPine (Norvasc) 5 MG tablet Take 5 mg by mouth in the morning. aspirin 81 MG EC tablet Take 81 mg by mouth in the morning. mqkkofgyph-zxthwxfkmmljr-gtguhuuo 50-325-40 MG tablet Take 1 tablet by [...] location and nature documented in this encounterCox Walnut [id number] Hospital Discharge instructions Patient Education 09/17/2023 09:05:07 [...] grapefruit, pineapple, and nury. Vegetables Deep-fried vegetables. Palauan fries. Any vegetables prepared with added fat. [...] provider. Document Revised: 11/11/2020 Document Reviewed: 11/11/2020 ElseXand Patient Education 2022 [employer]. Follow Up Care 06/25/2023 12:06:59 With:Sammi CASON, Jaiden Douglas [facility] Address: [address] [place], [place] [address], [address] [place] [address] [phone] When:3 months [facility] 01-15-2024 Evaluation note* Encounter [...] months. A prescription was sent to the [facility] for new supplies throughout the year. He [...] sleepiness, or poor response to treatment. . 1calendar Other 01-09-2024 Hospital Discharge instructions Patient Education [...] grapefruit, pineapple, and nury. Vegetables Deep-fried vegetables. Palauan fries. Any vegetables prepared with added fat. [...] provider. Document Revised: 11/11/2020 Document Reviewed: 11/11/2020 [employer] Patient Education 2022 [employer]. Follow Up Care 02/25/2023 14:06:51 With:Anjali Ruby CNP Address: When:1 month [facility] 11-20-2023 Miscellaneous Notes* Telephone Encounter - Lolly Dumont - 04/05/2023 9:44 AM EST Received records from [facility]. Reports for imaging listed below scanned. Images pushed through 09/27/2019 US Right Upper Quad 03/31/2020 CT ABD/PEL US Right Upper Quad [facility] MRI Abdomen 02/22/2023 Soft Tissue Head & Neck Received many misc. labs & ER reports Operative Note & pathology from Laparoscopic Cholecystectomy Patient seen 04/01, please review, thank you! documented in [facility] Nurse Note* Debby Holland MA - [...] Temperature: No Drains: No documented in this encounterProm[facility]11-16-2023 History of Present illness Narrative* Vaishali [...] way of the shared medical record or [facility]. Jeremie Bennett is a 82 year [...] Level: 4 - Moderate documented in this encounterProm[facility]ica [facility]11-16-2023 NoteHNO ID: [id number] Author: Vaishali Pringle MD Service: ? Author [...] Pringle MD Medical De (more content not included)...[facility]10-25-2023 Hospital Discharge instructions Patient Education [...] Follow these instructions at home: Medicines Take jton-hgu-scjiifx and prescription medicines only as told by [...] Watch your condition for any changes. Take rzaw-ako-deljhwy and prescription medicines only as told by [...] provider. Document Revised: 06/21/2020 Document Reviewed: 09/11/2019 [employer] Patient Education 2022 [employer]. Follow Up Care 03/09/2023 09:58:32 With:Anjali Ruby CNP Address: When:1 to 2 weeks Comments:Following EGD. [facility] 10-12-2023 Hospital Discharge instructions [...] Follow these instructions at home: Medicines Take jfas-hlo-ydkmhsu and prescription medicines only as told by your health care provider. If you were prescribed an antibiotic medicine, take it as told by your health care provider. Do notstop taking the antibiotic even if you start to feel better. Eating and drinking Make any diet changes as told by your health care provider. Work with a diet and forest fire prevention specialist (dietitian) to create an eating plan [...] Document Reviewed: 12/21/2020 Elsevier Patient Education 2022 [employer]. Follow Up Care 02/22/2023 16:17:47 With:Anjali Ruby CNP Address: When:3 months [facility] 09-15-2023 Evaluation note* Encounter [...] months. A prescription was sent to the [facility] for new supplies throughout the year. He [...] sleepiness, or poor response to treatment. . 1calendar Other 08-29-2023 Hospital Discharge instructions Patient Education [...] including vitamins, herbs, eye drops, creams, and yxof-vmt-ctbywnr medicines. Any problems you or family members [...] provider tells you to take them. Taking uzyr-ckh-apjvagv medicines, vitamins, herbs, and supplements. General instructions [...] provider. Document Revised: 04/27/2022 Document Reviewed: 12/24/2021 [employer] Patient Education 2022 [employer]. Follow Up Care 12/28/2022 08:53:11 With:Anjali Ruby CNP Address: When:1 to 2 weeks Comments:Following EGD/Colonoscopy. [facility] 05-30-2023 Evaluation note* Encounter [...] sleepiness, or poor response to treatment. . 1calendar Other 05-09-2023 Hospital Discharge instructions Patient Education [...] managed at home with rest, fluids, and gwrn-fiv-qxqfpig medicines. Serious symptoms may be treated in [...] water are not available, use alcohol-based hand embroidery operator. Make sure that all people in [...] managed at home with rest, fluids, and bxgh-srq-nkjwgek medicines. This information is not intended to replace advice given to you by your health care provider. Make sure you discuss any questions you have with your health care provider. Document Revised: 04/23/2022 Document Reviewed: 04/23/2022 [employer] Patient Education 2022 [employer]. Follow Up Care 09/22/2022 16:24:11 With:Demetrius Cooper Address: [address] [place] [address]- Business (2) When:09/25/2022 18:12:09 [facility]05-09[facility] Evaluation note* Encounter Date Diagnosis Assessment Notes [...] no improvement in 2 to 3 days. 1calendar Other 04-11-2023 NoteCONSULTATION CONSULTATION DATE: 08/25/2022 TO: [...] our patients to inform us about any ssts-nop-aatcxne medications or herbal remedies/nutritional supplements/alternative remedies. 2. [...] treatment options with their primary care provider.[id number] Evaluation note * Encounter Date Diagnosis Assessment [...] symptoms if he does not take his bftn-awu-qpxjzwt hypnotic, sleep hygiene issues may also be [...] his neuropathy pain Jul,oronary artery disease involving elim ira heart without angina pectoris, unspecified vessel or [...] he does have a defibrillator in place 1calendar Other 03-09-2023 NoteCONSULTATION CONSULTATION DATE: 07/23/2022 HISTORY [...] gain authorization to hold the Plavix pre-procedure.[facility] [id number] NotePROCEDURE: XR ANKLE RT MIN 3 VIEWS COMPARISON: 08/22/2020 HISTORY: Pain of right ankle joint FINDINGS: BONES:No acute fracture or dislocation. Moderate enthesopathic spurring of the calcaneus. Degenerative changes with bone fragments along the inferior medial malleolus, stable. SOFT TISSUES:Negative. No visible soft tissue swelling. EFFUSION:None visible. OTHER: Negative. IMPRESSION: Stable degenerative changes Electronically authenticated by: ERWIN FALCON Date: 2022-07-22 10:37[facility] [id number] NotePROCEDURE: XR FOOT RT MIN 3 VIEWS [...] authenticated by: CLARISSA GARCIA Date: 2022-06-16 15:25[facility] [id number] Hospital Discharge instructions Patient Education 05/26/2022 13:46:25 [...] [facility] [address], [place] [address]- Business (1) When: Unknown Comments:Office will call to schedule follow up [facility]08-11-2022 NoteCONSULTATION PROCEDURE DATE: 12/25/2021 PRE AND POSTOPERATIVE [...] will be followed up in the clinic.[facility] 12-25-2021 NoteCONSULTATION CONSULTATION DATE: 12/25/2021 This [...] recently seen at an urgent care in [place] for left thumb pain and joint swelling. [...] in three months' time unless otherwise indicated.[facility] [id number] Evaluation note* Encounter Date Diagnosis Assessment Notes [...] will help you get into a specialist. 1calendar Other Chiyl complaint+Reason for visit Narrative* Chief Complaint N54.2 Self Referral [facility] Work Phone: Chiha complaint+Reason for visit Narrative* Chief Complaint N54.2 Self Referral [id number] m54.12 m54.2 [facility] Work Phone: Chioj complaint+Reason for visit Narrative* Chief Complaint N54.2 Self Referral [id number] m54.12 m54.2 isidro, 31-90 [facility] Work Phone: Discharge summary Author Zeke Brennan [facility] Medical CenterNote Date/TimeApril 2024 2:14pmPriddy[place] [address] Discharge Summary Signed Patient: Jeremie Bennett MR#: [id number] : 1940 Acct:[id number] Age/Sex: 83 / M Adm Date: 5 Loc: Room: [address] [place] [address]: Zeke Brennan MD Copies to: [...] he was discharged home stable condition the [facility] with few more days of oral [...] Continuity of Care Document Health Concerns: A [facility] screening has identified you [...] Strong:Four Ways to Beat the Frailty Risk [email or web address]/st fn-ebpbew-pkxo- zofj-xc-mwxa-thk-wwjkejv-gcpz Exam Physical Exam Vital Signs: Temp Pulse [...] % (Auto) 75.8, Lymph % (Auto) 9.0, [place] % (Auto) 13.6, Eos % (Auto) 1.0, Baso % (Auto) 0.6, Nucleat RBC Rel Count 0.1, Neut # (Auto) 4.7, Lymph # (Auto) 0.6 L, [place] # (Auto) 0.8, Eos # (Auto) 0.1, [...] % (Auto) 77.0, Lymph % (Auto) 10.5, [place] % (Auto) 11.3, Eos % (Auto) 0.7, Baso % (Auto) 0.5, Nucleat RBC Rel Count 0.2, Neut # (Auto) 5.7, Lymph # (Auto) 0.8 L, [place] # (Auto) 0.8, Eos # (Auto) 0.1, Baso # (Auto) 0.0, Monocyte Dist Width 23.19 H, ESR 42 H, PT 12.9, INR 1.1, Lactic Acid 0.8, C-Reactive Prot, Quant Cancelled 08/20/24 12:20: PHA Creatinine Clear 58.71, Sodium 136, Potassium 3.7, Chloride 104, Carbon Uvucxdt63.4, Anion Gap 10.3, BUN 16, Creatinine 0.85, Est GFR (CKD- EPI) > 60.0, Glucose 106 H, Calcium 8.4 L, Total Bilirubin 0.6, AST 18, ALT 17, Alkaline Phosphatase 66, C-Reactive Prot, Quant 3.3 H, Total Protein 5.9 L, Albumin 3.4 L, Globulin 2.5, Albumin/Globulin Ratio 1.4 Documented By: Zeke Brennan MD 08/21/24 1407 Signed By: <Electronically signed by Zeke Brennan MD> 08/21/24 1414 [facility] Work Phone: Evaluation + Plan note No data available for this section [facility] Future Appointments Appointment Date:11/23/2022 09:00:00 AM Scheduled Provider:Demetrius Cooper MD Location:[facility] Appointment Type: Open [facility] Future Appointments Appointment Date:12/15/2022 12:00:00 PM Scheduled Provider:Anjali Ruby CNP Location:[facility] Appointment Type:[facility] Patient Appointment Date:05/31/2023 09:00:00 AM Scheduled Provider:Demetrius Cooper MD Location:[facility] Appointment Type: Open Appointment Date:11/08/2023 01:00:00 PM Scheduled Provider: Location:[facility] Appointment Type:FM Medicare Wellness Subsequent Future Scheduled Tests Laboratory* HgbA1c 11/23/22 * CBC w/ Auto Diff 11/23/22 * Comprehensive Metabolic Panel 11/23/22 * Lipid Panel 11/23/22 [facility] Future Appointments Appointment Date:05/31/2023 09:00:00 AM Scheduled Provider:Demetrius Cooper MD Location:[facility] Appointment Type: Open Appointment Date:11/08/2023 01:00:00 PM Scheduled Provider: Location:[facility] Appointment Type:FM Medicare Wellness Subsequent Future Scheduled Tests Laboratory* HgbA1c 11/23/22 * CBC w/ Auto Diff 11/23/22 * Comprehensive Metabolic Panel 11/23/22 * [facility] App[facility]ments Appointment Date:05/31/2023 09:00:00 AM Scheduled Provider:Demetrius Cooper MD Location:[facility] Appointment Type: Open Appointment Date:11/08/2023 01:00:00 PM Scheduled Provider: Location:[facility] Appointment Type: Medicare Wellness Subsequent Future Scheduled Tests Laboratory* HgbA1c 11/23/22 * CBC w/ Auto Diff 11/23/22 * Comprehensive Metabolic Panel 11/23/22 * Lipid Panel 11/23/22 Radiology* CT Abdomen w/ Contrast 01/12/23 [facility] Evaluation + Plan note Future Appointments Appointment Date:05/03/2023 01:40:00 PM Scheduled Provider:Anjali Ruby CNP Location:[facility] Appointment Type:[facility] Follow Up Appointment Date:05/31/2023 09:00:00 AM Scheduled Provider:Demetrius Cooper MD Location:[facility] Appointment Type: Open Appointment Date:11/08/2023 01:00:00 PM Scheduled Provider: Location:[facility] Appointment Type:FM Medicare Wellness Subsequent Future Scheduled Tests Laboratory* HgbA1c 11/23/22 * CBC w/ Auto Diff 11/23/22 * Comprehensive Metabolic Panel 11/23/22 * Lipid Panel 11/23/22 [facility] evaluation + Plan note Future Appointments Appointment Date:05/03/2023 01:40:00 PM Scheduled Provider:Anjali Ruby CNP Location:[facility] Appointment Type:[facility] Follow Up Appointment Date:05/31/2023 10:00:00 AM Scheduled Provider:Demetrius Cooper MD Location:[facility] Appointment Type: Open Appointment Date:11/08/2023 01:00:00 PM Scheduled Provider: Location:[facility] Appointment Type:FM Medicare Wellness Subsequent Future Scheduled Tests Laboratory* HgbA1c 11/23/22 * CBC w/ Auto Diff 11/23/22 * Comprehensive Metabolic Panel 11/23/22 * Lipid Panel 11/23/22 [facility] evaluation + Plan note Future Appointments Appointment Date:05/03/2023 01:40:00 PM Scheduled Provider:Anjali Ruby CNP Location:[facility] Appointment Type:[facility] Follow Up Appointment Date:05/31/2023 10:00:00 AM Scheduled Provider:Demetrius Cooper MD Location:[facility] Appointment Type: Open Appointment Date:11/08/2023 01:00:00 PM Scheduled Provider: Location:[facility] Appointment Type: Medicare Wellness Subsequent Diagnostic Tests Pending * O & P Exam, Routine 03/10/23 * Giardia lamblia, Direct Detection EIA 03/10/23 Future Scheduled Tests Laboratory* HgbA1c 11/23/22 * CBC w/ Auto Diff 11/23/22 * Comprehensive Metabolic Panel 11/23/22 * Lipid Panel 11/23/22 [facility] Future Appointments Appointment Date:05/31/2023 10:00:00 AM Scheduled Provider:Demetrius Cooper MD Location:[facility] Appointment Type: Open Appointment Date:06/25/2023 01:20:00 PM Scheduled Provider:Anjali Ruby CNP Location:[facility] Appointment Type:[facility] Follow Up Appointment Date:11/08/2023 01:00:00 PM Scheduled Provider: Location:[facility] Appointment Type:FM Medicare Wellness Subsequent Future Scheduled Tests Laboratory* HgbA1c 11/23/22 * CBC w/ Auto Diff 11/23/22 * Comprehensive Metabolic Panel 11/23/22 * Lipid Panel 11/23/22 [facility] Evaluation + Plan note Future Appointments Appointment Date:10/21/2023 03:00:00 PM Scheduled Provider:Inez Henderson MD Location:[facility] Appointment Type:[facility] Follow Up Appointment Date:11/08/2023 01:00:00 PM Scheduled Provider: Location:[facility] Appointment Type: Medicare Wellness Subsequent Appointment Date:11/29/2023 10:15:00 AM Scheduled Provider:Demetrius Cooper MD Location:[facility] Appointment Type: Open Future Scheduled Tests Laboratory* U Protein/Creat Ratio 05/31/23 * HgbA1c 11/23/22 * HgbA1c 05/31/23 * Microalbumin Level Urine 05/31/23 * CBC w/ Auto Diff 11/23/22 * Comprehensive Metabolic Panel 11/23/22 * Lipid Panel 11/23/22 [facility] Evaluation + Plan note Future Appointments Appointment Date:10/21/2023 03:00:00 PM Scheduled Provider:Inez Henderson MD Location:[facility] Appointment Type:BAD Follow Up Appointment Date:11/08/2023 01:00:00 PM Scheduled Provider: Location:[facility] Appointment Type: Medicare Wellness Subsequent Appointment Date:11/29/2023 10:15:00 AM Scheduled Provider:Demetrius Cooper MD Location:[facility] Appointment Type: Open Diagnostic Tests Pending * Celiac Disease Comprehensive 09/17/23 Future Scheduled Tests Laboratory* U Protein/Creat Ratio 05/31/23 * HgbA1c 11/23/22 * HgbA1c 05/31/23 * Microalbumin Level Urine 05/31/23 * CBC w/ Auto Diff 11/23/22 * Comprehensive Metabolic Panel 11/23/22 * Lipid Panel 11/23/22 [facility] Future Appointments Appointment Date:11/08/2023 01:00:00 PM Scheduled Provider: Location:[facility] Appointment Type: Medicare Wellness Subsequent Appointment Date:11/29/2023 10:15:00 AM Scheduled Provider:Demetrius Cooper MD Location:[facility] Appointment Type: Open Appointment Date:03/23/2024 02:45:00 PM Scheduled Provider:Inez Henderson MD Location:[facility] Appointment Type:[facility] Follow Up Future Scheduled Tests Laboratory* U Protein/Creat Ratio 05/31/23 * HgbA1c 11/23/22 * HgbA1c 05/31/23 * Microalbumin Level Urine 05/31/23 * CBC w/ Auto Diff 11/23/22 * Comprehensive Metabolic Panel 11/23/22 * Lipid Panel 11/23/22 Radiology* MRI Cholangiogram Pancreatography (mrcp) 10/21/23 [facility] Evaluation + Plan note Future Appointments Appointment Date:11/29/2023 10:15:00 AM Scheduled Provider:Demetrius Cooper MD Location:[facility] Appointment Type: Open Appointment Date:03/23/2024 02:45:00 PM Scheduled Provider:Inez Henderson MD Location:[facility] Appointment Type:[facility] Follow Up Appointment Date:11/06/2024 02:30:00 PM Scheduled Provider: Location:[facility] Appointment Type: Medicare Wellness Subsequent Future Scheduled Tests Laboratory* U Protein/Creat Ratio 11/24/23 * U Protein/Creat Ratio 05/31/23 * HgbA1c 11/30/23 * HgbA1c 11/23/22 * HgbA1c 05/31/23 * Microalbumin Level Urine 11/24/23 * Microalbumin Level Urine 05/31/23 * CBC w/ Auto Diff 11/23/22 * Comprehensive Metabolic Panel 11/23/22 * Lipid Panel 11/08/23 * Lipid Panel 11/23/22 [facility] Future Appointments Appointment Date:04/17/2024 10:00:00 AM Scheduled Provider:Demetrius Cooper MD Location:[facility] Appointment Type: Open Appointment Date:11/06/2024 02:30:00 PM Scheduled Provider: Location:[facility] Appointment Type: Medicare Wellness Subsequent Future Scheduled Tests Laboratory* U Protein/Creat Ratio 11/24/23 * U Protein/Creat Ratio 05/31/23 * HgbA1c 11/30/23 * HgbA1c 05/31/23 * Microalbumin Level Urine 11/24/23 * Microalbumin Level Urine 05/31/23 * Lipid Panel 11/08/23 Radiology* MRI Cholangiogram Pancreatography (mrcp) 03/23/24 [facility] Evaluation + Plan note Future Appointments Appointment Date:11/06/2024 02:30:00 PM Scheduled Provider: Location:[facility] Appointment Type: Medicare Wellness Subsequent Appointment Date:11/06/2024 03:30:00 PM Scheduled Provider:Demetrius Cooper MD Location:[facility] Appointment Type: Open Future Scheduled Tests Laboratory* U Protein/Creat Ratio 11/24/23 * U Protein/Creat Ratio 05/31/23 * HgbA1c 11/30/23 * HgbA1c 05/31/23 * Microalbumin Level Urine 11/24/23 * Microalbumin Level Urine 05/31/23 * Lipid Panel 11/08/23 [facility] evaluation + Plan note Future Appointments Appointment Date:11/21/2024 02:30:00 PM Scheduled Provider: Location:[facility] Appointment Type: Medicare Wellness Subsequent Appointment Date:11/21/2024 03:20:00 PM Scheduled Provider:Demetrius Cooper MD Location:[facility] Appointment Type: Open Diagnostic Tests Pending * Urine Culture 08/30/24 Future Scheduled Tests Laboratory* U Protein/Creat Ratio 11/24/23 * HgbA1c 11/30/23 * Microalbumin Level Urine 11/24/23 * Lipid Panel 11/08/23 [facility] evalucmpnt noteNo Assessments Information Available [facility] assessment information available [facility] Work Phone: evaluufjrm note* Diagnosis 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 [facility]* Diagnosis 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 documented [facility] this encounter [facility]* Diagnosis Onset Date Resolution Status Viral URI with cough noneactiveImpacted cerumen, bilateralnoneactiveCentral sleep apneaacuteDM (diabetes mellitus)acuteEssential hypertensionacuteObstructive sleep apneaacute [facility] Work Phone: evaluation note* Diagnosis 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 documented [facility] this encounter [facility]* Diagnosis Migraine without aura and without status migrainosus, not intractable (CMS/HCC)- Primary Vertigo Dizziness and giddiness Lumbar radiculopathy Thoracic or lumbosacral neuritis or radiculitis, unspecified Neck pain Cervicalgia Degenerative disc disease, cervical Polyneuropathy Unspecified hereditary and idiopathic peripheral neuropathy documented [facility]* Diagnosis LAD (lymphadenopathy) of right cervical region- Primary documented in this encounter [facility]* Diagnosis 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 [facility]* Diagnosis Oral ulcer- Primary Other and unspecified diseases of the oral soft tissues 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) documented in this encounter [facility]* Diagnosis 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 Ulcer of gingiva documented in this encounter [facility]* Diagnosis Malignant neoplasm metastatic [...] mouth, part unspecified documented in this encounter [facility] Work Phone: Evaluation note* Diagnosis Parotid mass- Primary Swelling, mass, or lump in head and neck documented in this encounter [facility]* Diagnosis Malignant neoplasm of [...] stated as uncontrolled documented in this encounter [facility] Work Phone: Evaluation note* 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 head, face, and neck documented in this encounter [facility] Work Phone: Evaluation note* Diagnosis Enlarged submental lymph node documented in this encounter [facility] Work Phone: Evaluation note* Diagnosis Poor [...] Dysphagia, unspecified type documented in this encounter [facility] Work Phone: Evaluation note* Diagnosis Esophageal dysphagia- Primary Dysphagia, pharyngoesophageal phase documented in this encounter [facility]* Diagnosis Vertigo- Primary Dizziness and giddiness Lumbar radiculopathy Thoracic or lumbosacral neuritis or radiculitis, unspecified Chronic bilateral low back pain, unspecified whether sciatica present Degenerative disc disease, cervical Migraine without aura and without status migrainosus, not intractable ([facility]) Polyneuropathy Unspecified hereditary and idiopathic [...] risk for malnutrition documented in this encounter [facility] Work Phone: Evaluation note* Diagnosis Esophageal [...] Historycardiac stentSurgical HistoryprostatectomySurgical Historyhernia Hospitalization Historysee above 1calendar Other History general Narrative - Reported* Type Description Date Medical History DM (diabetes mellitus) Medical HistoryHTN (hypertension)Medical HistoryHypercholesteremiaMedical HistoryVitamin D deficiency, unspecifiedMedical HistoryCAD (coronary artery disease)Medical HistoryOSAMedical Historyventricular tachycardiaMedical History diabetic neuropathySurgical HistoryNeck SurgerySurgical Historycholecystectomy Surgical Historycardiac stentSurgical HistoryprostatectomySurgical Historyhernia Hospitalization Historysee above 1calendar Other History of Present illness Narrative* Veena [...] this visit: Esophageal dysphagia 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 [facility] instructions No data available for this section [facility] Discharge instructionsAmbulatory Orders* Referral to Palliative Medicine Time Frame: 06/14/24, Location: None Selected * RISE Order Location: None Selected [facility] Work Phone: Progress note No data available for this section [facility] note Author Talib Faustin [facility] CenterNote Date/TimeJanuary 2024 11:06[facility] [address] Cancer Center Note Signed Patient: Jeremie Bennett MR#: [id number] : 1940 Acct:[id number] Age/Sex: 83 / M Type: REG AMB [...] is an 83-year-old gentleman who lives in [facility] was referred to our medical [...] with concurrent chemoradiation. Since he lives in [place] he was referred by Dr. Mary Schneider from ENT at [facility] to our medical oncology and radiation oncology at [facility]. He is referred to medical oncology [...] PO DAILY aspirin 81 mg PO DAILY yndhtzl-iveeqfpkctcta-osqynknm 250-250-65 mg (Excedrin Migraine) 1 tab PO [...] yellow fever card, magnet, caregiver resource list, [facility] nutrition guide, and cancer rehabilitation pamphlet [...] to have pace maker replaced 07/10/[address] [facility]. [facility] Medical History Medical History (Updated 06/14/24 @ [...] signed by Talib Faustin MD> 06/14/24 1106 [facility] Work Phone: Progress note Author Talib Faustin [facility] CenterNote Date/TimeFebruary 2024 9:20am [facility] [place] [address] Cancer Center Note Signed Patient: Jeremie Bennett MR#: [id number] : 1940 Acct:[id number] Age/Sex: 83 / M Type: REG AMB [...] his week 1 of cisplatin. Labs at [facility] on 07/03/24 revealed hgb 13.3, cr is 1.0. He is having his labs here today.He had his pacemaker placed on 07/10/24 in [place]. PLAN: proceed with week 2 cisplatin tomorrow [...] is an 83-year-old gentleman who lives in [facility] was referred to our medical [...] board at [facility] and the recommended concurrent chemoradiation. [...] with concurrent chemoradiation. Since he lives in [place] he was referred by Dr. Mary Schneider from ENT at [facility] to our medical oncology and radiation oncology at [facility]. He is referred to medical oncology [...] his week 1 of cisplatin. Labs at [facility] on 07/03/24 revealed hgb 13.3, cr is 1.0. He is having his labs here today.He had his pacemaker placed on 07/10/24 in [place]. Rest of 14 point systems were reviewed [...] PO QAM aspirin 81 mg PO DAILY ckluzze-trfbcmyfyghtb-wpqtluyl 250-250-65 mg (Excedrin Migraine) 1 tab PO [...] other concerns voiced at time of intake. [facility] Medical History Medical History (Updated 07/06/24 @ [...] Heart disease History of stroke [facility] Problem: Diagnosed with Stroke Hypertension Emphysema lung ESRD (end stage renal disease) Sister Cancer [facility] Problem: Diagnosed with Cancer Lymphoma Social History [...] signed by Talib Faustin MD> 07/12/24 0920 [facility] Work Phone: Progress note Author Zeke Brennan [facility] CenterNote Date/TimeApril 2024 2:[place]pm[place] [id number] Hospitalist Progress Note Signed Patient: Jeremie Bennett MR#: [id number] : 1940 Acct:[id number] Age/Sex: 83 / M Adm Date: 5 Loc: Room: [address] [place] [address] Type: ADM IN Attending Dr: Zeke Brennan [...] care and confirmed it with the re sident/student/LAST MARKER. This patient presented to the emergency department [...] spray 08/21/24 09:00 08/21/24 09:02 Fluticasone Propionate [place] 120 [place]/16 Gm Bottle INTRANASAL 08/21/25 08:59 2 spray [...] signed by DO KASSY Lambert> 08/21/24 1152 [facility] Work Phone: Progress note Author Talib Faustin [facility] CenterNote Date/TimeJuly 2024 10:26[facility] [place] [address] Cancer Center Note Signed Patient: Jeremie Bennett MR#: [id number] : 1940 Acct:[id number] Age/Sex: 84 / M Type: REG AMB [...] his week 1 of cisplatin. Labs at [facility] on 07/03/24 revealed hgb 13.3, cr is 1.0. He is having his labs here today.He had his pacemaker placed on 07/10/24 in [place]. 07/20/2024 he came in complaining of increase [...] is an 83-year-old gentleman who lives in [facility] was referred to our medical [...] board at [facility] and the recommended concurrent chemoradiation. [...] with concurrent chemoradiation. Since he lives in [place] he was referred by Dr. Mary Schneider from ENT at [facility] to our medical oncology and radiation oncology at [facility]. He is referred to medical oncology [...] his week 1 of cisplatin. Labs at [facility] on 07/03/24 revealed hgb 13.3, cr is 1.0. He is having his labs here today.He had his pacemaker placed on 07/10/24 in [place]. 07/20/2024 he came in complaining of increase [...] NO concerns voiced at time of intake. [facility] Medical History Medical History Squamous cell carcinoma [...] Mother Heart disease History of stroke [facility] Problem: Diagnosed with Stroke Hypertension Emphysema lung ESRD (end stage renal disease) Sister Cancer [facility] Problem: Diagnosed with Cancer Lymphoma Social History [...] signed by Talib Faustin MD> 11/23/24 1026 [facility] Work Phone: Progress note Author Becky Crouch [facility] CenterNote Date/TimeAugust 2024 1:25pm [facility] [place] [address] Cancer Center Note Signed Patient: Jeremie Bennett MR#: [id number] : 1940 Acct:[id number] Age/Sex: 84 / M Type: DEP AMB [...] was placed by surgery here at [facility] and patient is hopeful to have [...] Extended-Release) Allergy (Unknown, Verified 11/23/24 10:00) hives [facility] Medical History Medical History (Updated 11/23/24 @ [...] <Electronically signed by RAYSHAWN Crouch> 12/26/24 1343 [facility] Work Phone: Reason for referral (narrative) Referred by: Anjali Ruby CNP [facility] Reason for referral (narrative)No reason for referral information availableC[facility] Clinic [facility] Work Phone: Reason for visit Narrative* Auth/CertSpecialty Diagnoses / ProceduresReferred By ContactReferred To Contact Diagnoses 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] Procedures [place] GLOSSECTOMY HEMIGLOSSECTOMY [place] LARYNGOSCOPY W/WO TRACHEOSCOPY DX EXCEPT [place] BRNCHSC INCL FLUOR GDNCE DX W/CELL WASHG SPX [place] ESOPHAGOSCOPY FLEXIBLE TRANSORAL DIAGNOSTIC [place] TONSILLECTOMY PRIMARY/SECONDARY AGE 12/> GLOSSECTOMY, ROBOT-ASSISTED, ORAL APPROACH Direct Laryngoscopy Bronchoscopy Esophagoscopy [place] [address] [place] [phone] Phone: tel: fax: [facility] [place] [address] [place] [address] fax: Referral IDStatusReasonStart DateExpiration DateVisits RequestedVisits [id number] [facility] Work Phone: Reason for visit Narrative* Imaging (Routine) - AuthorizedSpecialtyDiagnoses / ProceduresReferred By ContactReferred To ContactRadiology Diagnoses Enlarged submental lymph node Procedures US guided biopsy lymph node superficial [place] [address] [place] [address] Phone: tel: fax: Referral IDStatusReasonStart DateExpiration DateVisits RequestedVisits [id number] Perform Procedure [facility] Work Phone: Summary Purpose Family History [...] RepresentativeExplanationHealthcare Power of Atty 05/11/2024Living Will05/11/2024TypeDate RecordedPatient Livestock Slaughterer ExplanationHealthcare Power of Atty107/12/2023Living Will05/11/2024 Advance Directive [...] Admit Date Squamous cell carcinoma of oropharynx [facility] 2024 9:25am Tongue cancer June 14, 2024 9 :25am Squamous cell carcinoma of oropharynx [facility] 2024 10:28am Chief Complaint Admit Date [...] Admit Date Squamous cell carcinoma of oropharynx [facility] 2024 9:25am Tongue cancer June 14, 2024 9 :25am Squamous cell carcinoma of oropharynx [facility] 2024 10:28am Encounter for palliative care June 182024 8:00am Squamous cell carcinoma of oropharynx [facility] 2024 8:00am Chief Complaint Admit [...] Admit Date Squamous cell carcinoma of oropharynx [facility] 2024 9:25am Tongue cancer June 14, 2024 9 :25am Squamous cell carcinoma of oropharynx [facility] 2024 10:28am Encounter for palliative care June 182024 8:00am Squamous cell carcinoma of oropharynx [facility] 2024 8:00am Cancer associated pain July 12 7:36am Nausea July 12, 2024 7:36am Squamous cell carcinoma of oropharynx [facility] 2024 7:36am Squamous cell carcinoma of oropharynx [facility] 2024 8:29am Tongue cancer July 12, 2024 [...] Admit Date Squamous cell carcinoma of oropharynx [facility] 2024 8:13am Cancer associated pain July 26, 2024 8:22am Nausea July 26, 2024 8:2 2am Squamous cell carcinoma of oropharynx [facility] 2024 8:22am Chief Complaint Admit Date NEW-Mal [...] Admit Date Squamous cell carcinoma of oropharynx [facility] 2024 8:13am Cancer associated pain July 26, 2024 8:22am Nausea July 26, 2024 8:2 2am Squamous cell carcinoma of oropharynx [facility] 2024 8:22am Cancer associated pain August 02, 2024 7:29am Constipation August 02, 2024 7:2 9am Squamous cell carcinoma of oropharynx [facility] 2024 7:29am Thrush, oral August 02, 2024 [...] Admit Date Squamous cell carcinoma of oropharynx [facility] 2024 8:13am Cancer associated pain July 26, 2024 8:22am Nausea July 26, 2024 8:2 2am Squamous cell carcinoma of oropharynx [facility] 2024 8:22am Cancer associated pain August 02, 2024 7:29am Constipation August 02, 2024 7:2 9am Squamous cell carcinoma of oropharynx [facility] 2024 7:29am Thrush, oral August 02, 2024 7:2 9am Cancer associated pain August 09, 2024 7:51am Constipation August 09, 2024 7:5 1am Nausea August 09, 2024 7:5 1am Squamous cell carcinoma of oropharynx [facility] 2024 7:51am Squamous cell carcinoma of oropharynx [facility] 2024 9:23am Chief Complaint Admit Date NEW-Mal [...] Admit Date Squamous cell carcinoma of oropharynx [facility] 2024 8:13am Cancer associated pain July 26, 2024 8:22am Nausea July 26, 2024 8:2 2am Squamous cell carcinoma of oropharynx [facility] 2024 8:22am Cancer associated pain August 02, 2024 7:29am Constipation August 02, 2024 7:2 9am Squamous cell carcinoma of oropharynx [facility] 2024 7:29am Thrush, oral August 02, 2024 7:2 9am Cancer associated pain August 09, 2024 7:51am Constipation August 09, 2024 7:5 1am Nausea August 09, 2024 7:5 1am Squamous cell carcinoma of oropharynx [facility] 2024 7:51am Squamous cell carcinoma of oropharynx [facility] 2024 9:23am Cancer associated pain August 16, 2024 7 :59am Constipation August 16, 2024 7:59 am Nausea August 16, 2024 7:59 am Squamous cell carcinoma of oropharynx [facility] 2024 7:59am Chief Complaint Admit Date [...] Admit Date Squamous cell carcinoma of oropharynx [facility] 2024 8:13am Cancer associated pain July 26, 2024 8:22am Nausea July 26, 2024 8:2 2am Squamous cell carcinoma of oropharynx [facility] 2024 8:22am Cancer associated pain August 02, 2024 7:29am Constipation August 02, 2024 7:2 9am Squamous cell carcinoma of oropharynx [facility] 2024 7:29am Thrush, oral August 02, 2024 7:2 9am Cancer associated pain August 09, 2024 7:51am Constipation August 09, 2024 7:5 1am Nausea August 09, 2024 7:5 1am Squamous cell carcinoma of oropharynx [facility] 2024 7:51am Squamous cell carcinoma of oropharynx [facility] 2024 9:23am Cancer associated pain August 16, 2024 7 :59am Constipation August 16, 2024 7:59 am Nausea August 16, 2024 7:59 am Squamous cell carcinoma of oropharynx [facility] 2024 7:59am Fever August 20, 2024 [...] Admit Date Squamous cell carcinoma of oropharynx [facility] 2024 8:13am Cancer associated pain July 26, 2024 8:22am Nausea July 26, 2024 8:2 2am Squamous cell carcinoma of oropharynx [facility] 2024 8:22am Cancer associated pain August 02, 2024 7:29am Constipation August 02, 2024 7:2 9am Squamous cell carcinoma of oropharynx [facility] 2024 7:29am Thrush, oral August 02, 2024 7:2 9am Cancer associated pain August 09, 2024 7:51am Constipation August 09, 2024 7:5 1am Nausea August 09, 2024 7:5 1am Squamous cell carcinoma of oropharynx [facility] 2024 7:51am Squamous cell carcinoma of oropharynx [facility] 2024 9:23am Cancer associated pain August 16, [...] Admit Date Squamous cell carcinoma of oropharynx [facility] 2024 8:13am Cancer associated pain July 26, 2024 8:22am Nausea July 26, 2024 8:2 2am Squamous cell carcinoma of oropharynx [facility] 2024 8:22am Cancer associated pain August 02, 2024 7:29am Constipation August 02, 2024 7:2 9am Squamous cell carcinoma of oropharynx [facility] 2024 7:29am Thrush, oral August 02, 2024 7:2 9am Cancer associated pain August 09, 2024 7:51am Constipation August 09, 2024 7:5 1am Nausea August 09, 2024 7:5 1am Squamous cell carcinoma of oropharynx [facility] 2024 7:51am Squamous cell carcinoma of oropharynx [facility] 2024 9:23am Cancer associated pain August 16, [...] Admit Date Squamous cell carcinoma of oropharynx [facility] 2024 8:13am Cancer associated pain July 26, 2024 8:22am Nausea July 26, 2024 8:2 2am Squamous cell carcinoma of oropharynx [facility] 2024 8:22am Cancer associated pain August 02, 2024 7:29am Constipation August 02, 2024 7:2 9am Squamous cell carcinoma of oropharynx [facility] 2024 7:29am Thrush, oral August 02, 2024 7:2 9am Cancer associated pain August 09, 2024 7:51am Constipation August 09, 2024 7:5 1am Nausea August 09, 2024 7:5 1am Squamous cell carcinoma of oropharynx [facility] 2024 7:51am Squamous cell carcinoma of oropharynx [facility] 2024 9:23am Cancer associated pain August 16, [...] 2: 36pm Squamous cell carcinoma of oropharynx [facility] 2024 2:36pm Thrush, oral September 26, [...] [place] [address] [place] [address] Referral IDStatusReasonStcastleford DateExpiration DateVisits RequestedVisits [id number] / ProceduresReferred By ContactReferred To ContactMR IMAGING Diagnoses IPMN (intraductal papillary mucinous neoplasm) Procedures MRI 3D POST PROCESSING 3D RENDERING W/INTERP&POSTPROC [place] [address] [place] [id number] Mr Imaging [place] [address] Referral IDStatusReasonStcastleford DateExpiration DateVisits RequestedVisits [id number] Request Auto-Generated Referral [id number] / ProceduresReferred By ContactReferred To Contact IMAGING Diagnoses IPMN (intraductal papillary mucinous neoplasm) Procedures MRI PANC/TRISH WO/W IVCON MRI ABDOMEN W/O & W/[place] [address] [place] [address] Mr Imaging [place] [address] Referral IDStatusReasonStart DateExpiration DateVisits RequestedVisits [id number] Request Auto-Generated Referral Additional Source Comments (unrecognized [...] section and content) DATE CREATED AUTHOR 02/08/2020 [facility] DATE CREATED AUTHOR AUTHOR'S ORGANIZ ATION 09/30/2022 [facility] DATE CREATED AUTHOR AUTHOR'S ORGANIZ ATION 02/04/2023 [facility] DATE CREATED AUTHOR AUTHOR'S ORGANIZ ATION 04/01/2024 [facility] DATE CREATED AUTHOR AUTHOR'S ORGANIZ ATION 04/19/2024 [facility] DATE CREATED AUTHOR AUTHOR'S ORGANIZ ATION 07/05/2024 [facility] DATE CREATED AUTHOR AUTHOR'S ORGANIZ ATION 07/21/2024 [facility] DATE CREATED AUTHOR AUTHOR'S ORGANIZ ATION 07/22/2024 [facility] DATE CREATED AUTHOR AUTHOR'S ORGANIZ ATION 09/03/2024 [facility] DATE CREATED AUTHOR AUTHOR'S ORGANIZ ATION 10/15/2024 [facility] DATE CREATED AUTHOR AUTHOR'S ORGANIZ ATION 10/31/2024 [facility] DATE CREATED AUTHOR AUTHOR'S ORGANIZ ATION 12/01/2024 [facility] DATE CREATED AUTHOR AUTHOR'S ORGANIZ ATION 12/27/2024 [facility] DATE CREATED AUTHOR AUTHOR'S ORGANIZ ATION 01/20/2025 [facility] DATE CREATED AUTHOR AUTHOR'S ORGANIZ ATION 02/17/2025 [facility] DATE CREATED AUTHOR AUTHOR'S ORGANIZ ATION 02/25/2025 [facility] REASON FOR VISIT (unrecogniz ed section and content) ReasonCommentsConsultPEHReasonCommentsReceived Outside Medical RecordsReason CommentsBack PainDizzinessNeck PainReasonCommentsParotid massParotid massReason CommentsMRI AppointmentCare Coordinator - OtherReasonCommentsParotid MassFollow up FNA 02/29/24 TBHReasonCommentsRadiology NMReasonCommentsMouth LesionsFollow up PET [facility] 03/27/24ReasonCommentsNew Patient VisitOral cancer. ReasonCommentsNeck MassUltrasound 01/20/24. Lump right side of neck below ear. Onset about 6 wk agoReasonCommentsPost-opHead and neckReasonCommentsConsultPort - Ref Dr LAMAS Tongue cancerHaving pacemaker generator change on 07-10-24 w/ [facility] Patel.SpecialtyDiagnoses / ProceduresReferred By ContactReferred To ContactGeneral Surgery Diagnoses Malignant neoplasm of oropharynx, unspecified (CMS/HCC) Procedures [place] UNLISTED EVALUATION AND MANAGEMENT SERVICE Dennis Gray MD [address] [place] [address] Phone: tel: fax: Stacey Hinojosa, [place] [address] Phone: tel: fax: Referral IDStatusReasonStart DateExpiration DateVisits RequestedVisits [id number]/[id number]/[id number]-cuRuhusoHzvwxfis urgent need for gastrostomy zcnwHfohjkOzfgaziy1ew pow gastrostomy tube placement ReasonCommentsGastrostomy tube removalSpecialtyDiagnoses / ProceduresReferred By ContactReferred To ContactGeneral Surgery Diagnoses Malignant neoplasm of oropharynx, unspecified (HCC) Procedures [place] UNLISTED [facility]ALUATION [facility] MANAGEMENT SERVICE Gelacio Paredes MD Phone: tel: fax: Veena Ross, [address] [place] [address] Phone: tel: fax: Referral IDStatusReasonStart DateExpiration DateVisits RequestedVisits [id number]/[id number] of gastrostomy tube Patient Care team informatio [...] Provider Active Start: August 17, 2024 [facility] Care ProviderActiveStart: August 17, 2024 Team Status: [...] MemberRelationship SpecialtyStart DateEnd Date Anjali Ruby CNP [address] [place] [address] [facility]03/03/23Team MemberRelationshipSpecialtyStart DateEnd Date Anjali Ruby CNP [address] [place] [address] [facility]03/03/23 Team Status: Inactive Member Role Status Dates [...] DateEnd Date Anjali Ruby CNP [address] [place] [address] [facility]03/03/23Team MemberRelationshipSpecialtyStart DateEnd Date Demetrius Cooper MD [address] [place] [phone] PCP - [facility]01/26/24 Clarissa Corado MD [address] [place] [place] [phone] Referring PhysicianNeurology08/03/23Team MemberRelationshipSpecialtyStart DateEnd Date Demetrius Cooper MD [address] [place] [phone] PCP - [facility]01/26/24 Clarissa Corado MD [address] [place] [address] Referring PhysicianNeurology08/03/23Team MemberRelationshipSpecialtyStart DateEnd Date Demetrius Cooper MD [address] [place] [phone] PCP - [facility]01/26/24 Clarissa Corado MD [address] [place] [address] Referring PhysicianNeurology08/03/23Team MemberRelationshipSpecialtyStart DateEnd Date Anjali Ruby CNP [facility] [address] [place] [address] [facility]erringAt[facility]03/03/23 Team Status: Inactive Member Role Status Dates Demetrius Cooper MD Primary Care Provider Active Start: February 29, 2024 End: February 29, 2024Hithiago Ham Jr [facility] ProviderActiveStart: February 29, 2024 End: February 29, 2024Team MemberRelationshipSpecialtyStart DateEnd Date Demetrius Cooper MD [address] [place] [phone] PCP - [facility]01/26/24 Clarissa Corado MD [address] [place] [phone] Referring PhysicianNeurogroup health [facility]08/03/23Team MemberRelationshipSpecialtyStart DateEnd Date Demetrius Cooper MD [address] [place] [phone] PCP - [facility]01/26/24 Clarissa Corado MD [address] [place] [phone] Referring PhysicianNeurology08/03/23Team MemberRelationshipSpecialtyStart DateEnd Date Demetrius Cooper MD [address] [place] [phone] PCP - GeneralFamily Medicine01/26/24 Clarissa Corado MD [address] [place] [address] Referring PhysicianNeurology08/03/23Team MemberRelationshipSpecialtyStart DateEnd Date Demetrius Cooper MD [address] [place] [address] PCP - Generalmily Kzgjxnid95/11/24 Anjali [facility] [address] [place] [address] ReferringFami Auwjzkxo30/18/23 Luc Ham MD [address] [phone] Ent - Mdklgwmxswzepl05/25/24Team MemberRelationshipSpecialtyStart DateEnd Date Demetrius Cooper MD [address] [place] [phone] PCP - Generalmily Medicine01/26/24 Clarissa Corado MD [address] [place] [address] Referring PhysicianNeurology08/03/23Team MemberRelationshipSpecialtyStart DateEnd Date Demetrius Cooper MD [address] [facility] [place] [address] PCP - [facility]Washington [facility]icsly Dnvlgfuk44/26/24Team MemberRelationshipSpecialtyStart Date End Date Demetrius Cooper MD [address] [facility] [place] [address] [facility] - [facility] Wtlqexkp80/26/24Team MemberRelationshipSpecialtyStart Date End Date Demetrius Cooper MD [address] [facility] [place] [address] PCP - [facility] Oplaeqsu27/26/24Team MemberRelationshipSpecialtyStart Date End Date Demetrius Cooper MD [address] [facility] [place] [address] [facility] - [facility] Tuqylbki66/26/24 Team Status: Inactive Member Role Status Dates [...] Cooper MD [address] [place] [phone] PCP - [facility]01/26/24 Clarissa Corado MD [address] [place] [address] Referring PhysicianNeurology08/03/23 Team Status: Active Member Role Status Dates Demetrius Cooper MD Primary Care Provider Active Start: June 20, 2024 HUMBERTO Harleyeferring ProviderActiveStart: June 20, 2024 Dennis Gray , MDAttending ProviderActiveStart: June 20, 2024 Team MemberRelationshipSpecialtyStart DateEnd Date Demetrius Cooper MD [address] [place] [phone] [facility] - [facility]01/26/24 Clarissa Corado MD [address] [place] [address] Referring PhysicianNeuro[facility]08/03/23 Team Status: Active Member Role Status [...] Provider Active Start: July 20, 2024 [facility] Care ProviderActiveStart: July 20, 2024 Team Status: [...] DateEnd Date Demetrius Cooper MD [address] [facility] [place] [address] PCP - GeneralFamily Esqwolab60/26/24Team MemberRelationshipSpecialtyStart Date End Date Demetrius Cooper MD [address] [place] [phone] PCP - GeneralFamily Medicine01/26/24 Clarissa Corado MD Referring PhysicianNeurology08/03/23Team MemberRelationshipSpecialtyStart DateEnd Date Demetrius Cooper MD [address] [place] [phone] PCP - GeneralFamily Medicine01/26/24 Clarissa Corado MD [...] Demetrius Cooper MD [address] [place] [address] PCP - Generalmily Medicine01/26/24 Clarissa Corado MD Referring PhysicianNeurology08/03/23Team MemberRelationshipSpecialtyStart DateEnd Date Demetrius Cooper MD [address] [place] [address] PCP - GeneralFamily Medicine01/26/24 Clarissa Corado MD Referring PhysicianNeurology08/03/23Team MemberRelationshipSpecialtyStart DateEnd Date Demetrius Cooper MD [address] [place] [address] PCP - GeneralFamily Medicine01/26/24 Clarissa Corado MD [...] 2024Team MemberRelationshipSpecialtyStart DateEnd Date Demetrius Cooper MD [address] [place] [address] [place] [address] PCP - [facility]04/11/24 Team Status: Active Member Role Status Dates [...] Care Provider Active Start: December 26, 2024 Samantha Harley ProviderActiveStart: December 26, 2024 d Ramin Faustin MDAttending ProviderActiveStart: December 26, 2024 Team MemberRelationshipSpecialtyStart DateEnd Date Demetrius Cooper MD [address] [place] [address] PCP - Generalmi Medicine01/26/24 Clarissa Corado MD Referring PhysicianNeurology08/03/23Team MemberRelationshipSpecialtyStart DateEnd Date Demetrius Cooper MD [address] [place] [address] [facility] - [facility] Medicine01/26/24 Clarissa Corado MD Referring PhysicianNeurology08/03/23 [...] or prosecute any alcohol or drug abuse patient.[facility] Hospital[facility] the event this information is protected by the Federal Confidentiality of Alcohol and Drug Abuse Patient Records regulations: The Federal rules restrict any use of the information to criminally investigate or prosecute any alcohol or drug abuse patient.[facility] HospitalIn the event this information is protected by the Federal Confidentiality of Alcohol and Drug Abuse Patient Records regulations: The Federal rules restrict any use of the information to criminally investigate or prosecute any alcohol or drug abuse patient.[facility] HospitalIn the event this information is protected by the Federal Confidentiality of Alcohol and Drug Abuse Patient Records regulations: The Federal rules restrict any use of the information to criminally investigate or prosecute any alcohol or drug abuse patient.[facility] HospitalIn the event this information is protected by the Federal Confidentiality of Alcohol and Drug Abuse Patient Records regulations: The Federal rules restrict any use of the information to criminally investigate or prosecute any alcohol or drug abuse patient.[facility] PRN Active and Recently Administ ered [...] BE BASED ON THE PRIMARY CLINICAL RECORDS. [facility]. provides no warranty or guarantee of the accuracy or completeness of information in this document.
--- NOTE | 2025-03-07 11:26 | PM.CN ---
Consult Note: HPI Data of Consult Patient: known to practice within the last 3 years Requesting Physician: Alexandra Trevizo NP Primary Care Provider: Owen Sinclair MD Consult Narrative Reason for consult: low back pain Narrative: Jair Bennett a pleasant 84 year old male presents for evaluation and management of low back pain. pain 4/10 burning, increasing with standing, walking, twisting, lifting, pushing, pulling, activity. denies falls or injury. denies numbness, tingling, weakness, pain in LE. recently underwent lumbosacral xray consistent with multilevel ddd, facet arthropathy, and spondylolisthesis. since lsat visit reports no improvement in pain. cannot tolerate tizanidine during the day due to drowsiness. cannot take NSAIDs on plavix. finds moderate benefit to transdermal therapeutics cream. cc:: CC: Alexandra Trevizo NP Review of Systems ROS Musculoskeletal Reports: back pain and joint pain PFSH [facility] Medical History (Updated 02/22/25 @ 15:25 by Alexandra Trevizo NP) Anemia ?D64.9 - Anemia, unspecified (ICD-10) COVID ?U07.1 - COVID-19 (ICD-10) Vitamin D deficiency ?E55.9 - Vitamin D deficiency, unspecified (ICD-10) Skin cancer ?C44.90 - Unspecified malignant neoplasm of skin, unspecified (ICD-10) NPH (normal pressure hydrocephalus) ?G91.2 - (Idiopathic) normal pressure hydrocephalus (ICD-10) Migraine ?G43.909 - Migraine, unspecified, not intractable, without status migrainosus (ICD-10) Glaucoma ?H40.9 - Unspecified glaucoma (ICD-10) Diverticulosis ?K57.90 - Diverticulosis of intestine, part unspecified, without perforation or abscess without bleeding (ICD-10) Ventricular tachycardia ?I47.20 - Ventricular tachycardia, unspecified (ICD-10) Arthritis ?M19.90 - Unspecified osteoarthritis, unspecified site (ICD-10) Cervical lymphadenopathy ?R59.0 - Localized enlarged lymph nodes (ICD-10) Neck pain ?M54.2 - Cervicalgia (ICD-10) Low back pain ?M54.50 - Low back pain, unspecified (ICD-10) Thrombosis ?I82.90 - Acute embolism and thrombosis of unspecified vein (ICD-10) Weakness ?R53.1 - Weakness (ICD-10) Hiatal hernia ?K44.9 - Diaphragmatic hernia without obstruction or gangrene (ICD-10) Acid reflux ?K21.9 - Gastro-esophageal reflux disease without esophagitis (ICD-10) Diabetes ?E11.9 - Type 2 diabetes mellitus without complications (ICD-10) Prostate cancer ?C61 - Malignant neoplasm of prostate (ICD-10) Sleep apnea ?G47.30 - Sleep apnea, unspecified (ICD-10) Irregular heart beat ?I49.9 - Cardiac arrhythmia, unspecified (ICD-10) High cholesterol ?E78.00 - Pure hypercholesterolemia, unspecified (ICD-10) Hypertension ?I10 - Essential (primary) hypertension (ICD-10) Surgical History History of lymph node biopsy ?Z98.890 - Other specified postprocedural states (ICD-10) History of implantation of artificial sphincter ?Z96.89 - Presence of other specified functional implants (ICD-10) Hx laparoscopic cholecystectomy ?Z90.49 - Acquired absence of other specified parts of digestive tract (ICD-10) History of carpal tunnel release of both wrists ?Z98.890 - Other specified postprocedural states (ICD-10) Pacemaker ?Z95.0 - Presence of cardiac pacemaker (ICD-10) H/O angioplasty ?Z98.62 - Peripheral vascular angioplasty status (ICD-10) H/O vasectomy ?Z98.52 - Vasectomy status (ICD-10) H/O neck surgery ?Z98.890 - Other specified postprocedural states (ICD-10) History of repair of inguinal hernia ?Z98.890 - Other specified postprocedural states (ICD-10) ?Z87.19 - Personal history of other diseases of the digestive system (ICD-10) History of prostatectomy ?Z90.79 - Acquired absence of other genital organ(s) (ICD-10) History of phacoemulsification of cataract of both eyes with intraocular lens implantation ?Z98.41 - Cataract extraction status, right eye (ICD-10) ?Z98.42 - Cataract extraction status, left eye (ICD-10) ?Z96.1 - Presence of intraocular lens (ICD-10) History of cardiac radiofrequency ablation ?Z98.890 - Other specified postprocedural states (ICD-10) History of tonsillectomy ?Z90.89 - Acquired absence of other organs (ICD-10) Social History Smoking status: Former smoker Little interest or pleasure in doing things: not at all Feeling down, depressed, or hopeless: not at all Meds Home Medications and Allergies Home Medications ?Medication ?Instructions ?Recorded ?Confirmed ?Type amlodipine 5 mg tablet 5 mg PO QDAY 10/14/22 02/29/24 History clopidogrel 75 mg tablet (Plavix) 75 mg PO QDAY 10/14/22 02/29/24 History furosemide 20 mg tablet (Lasix) 40 mg PO QDAY 10/14/22 02/21/24 History irbesartan 300 mg tablet (Avapro) 300 mg PO QDAY 10/14/22 02/29/24 History isosorbide mononitrate 30 mg PO QDAY 10/14/22 02/29/24 History latanoprost 0.005 % eye drops 1 drp ophthalmic (eye) QDAY 10/14/22 02/29/24 History loperamide 2 mg capsule 2 mg PO Q2H PRN loose stool 10/14/22 02/29/24 History (Anti-Diarrheal (loperamide)) multivitamin (Daily Multi-Vitamin 1 tab PO QDAY 10/14/22 02/29/24 History tablet) omeprazole 40 mg capsule,delayed 40 mg PO QDAY 10/14/22 02/29/24 History release rosuvastatin 10 mg tablet (Crestor) 10 mg PO QDAY 10/14/22 02/29/24 History sotalol 40 mg PO BID 10/14/22 02/29/24 History tizanidine 4 mg tablet 4 mg PO BEDTIME 10/14/22 02/29/24 History TRANSDERMAL THERAPEUTICS QID PRN pain 09/15/23 History albuterol sulfate 90 mcg/actuation 2 inh inhalation Q8H PRN shortness 09/15/23 09/15/23 History aerosol inhaler of breath or wheezing famotidine 20 mg tablet 20 mg PO DAILY 09/15/23 02/29/24 History metformin 500 mg tablet,extended 500 mg PO DAILY 09/15/23 02/29/24 History release 24 hr psyllium husk 0.4 gram capsule 0.4 g PO DAILY 09/15/23 02/21/24 History (Metamucil) zonisamide 25 mg capsule 25 mg PO BID 09/15/23 02/29/24 History dorzolamide 2 % eye drops 1 drp ophthalmic (eye) TID 02/21/24 02/29/24 History tizanidine 4 mg tablet 4 mg PO TID PRN muscle spasticity 02/22/25 Rx #270 tabs Allergies Allergy/AdvReac Type Severity Reaction Status Date / Time adhesive Allergy Mild Unknown Verified 09/29/24 22:56 niacin (From Niaspan Allergy Mild itch Verified 09/29/24 22:56 Extended-Release) Exam Constitutional Documenting provider has reviewed patient's vital signs: yes Common normals: no apparent distress, oriented x3, healthy appearing, alert and well nourished General appearance: cooperative HENMT Common normals: normocephalic, hearing grossly normal bilaterally and moist oral mucous membranes Head and scalp: normocephalic Eye Common normals: PERRL Pupil: PERRL Neck & C-Spine Common normals: full ROM General: normal visual inspection Chest Common normals: inspection of chest normal Respiratory Common normals: normal respiratory effort, no retractions and no use of accessory muscles Back & Pelvis Lumbar spine/lower back: ROM limited, pain with ROM, lumbar spinal tenderness and straight leg raise negative bilaterally Sacroiliac joints: SI joint(s) abnormal Other: left> right sij positive shawnee(patricks), gaenslens, thigh thrust, compression test Neuro Common normals: oriented x3 Sensorium/orientation: alert Psych Common normals: mental status grossly normal, thought process normal, cooperative, affect normal, speech normal and activity/motor behavior normal Speech: normal speech Thought process: normal thought process Results Additional Findings Additional findings: If on a controlled substance or opioids, I have checked an [place] report on this patient and there are no aberrancies noted in the prescribing history.??If on a controlled substance or opioid a drug screen was completed and reviewed within the last year, and if there has not been a drug screen completed we ordered one today to monitor higher risk, state monitored pain medication use. As part of providing excellent, safe, comprehensive care, the following was completed at our patient's visit: 1. A medication reconciliation and review to ensure accurate knowledge of current/active medications, including asking our patients to inform us about any ekld-[id number]-nonftor medications or herbal remedies/nutritional supplements/alternative remedies. 2. A review to specifically ensure our patients have had annual screening for screening for depression, screening for tobacco use, and screening for unhealthy alcohol use. For concerning screenings had a discussion with the patient, provided patient education, and recommended follow-up with primary care provider when appropriate. If patient noted with a risk of falling, they received education on strength, gait, and balance training to prevent future risk of falling. Portions of this note may have been carried over from the previous visit and updated as appropriate. Please note this office utilizes paper charting in addition to the electronic medical record. A list of current medications, vitals, and PMH is available there as the clinical staff outside of myself do not have access to USDS charting during the clinic day operations. As part of providing quality comprehensive care the current medications, vitals, and PMH were reviewed in the paper chart. Assessment and Plan Assessment and Plan (1) Sacroiliitis: (2) Lumbar spondylosis: (3) Myalgia, other site: Plan The patient has had over 3 months of moderate to severe low back pain with functional impairment and inadequate response to conservative care including NSAIDS (unless there are contraindication such as concurrent blood thinners), multiple oral or topical pain medications, and home exercise program/physical therapy.? Patient has completed >6 weeks of guided home exercise program and/or formal physical therapy program without relief of their symptoms.? The Oswestry Disability Index was completed, and the patient scored a 30%.? bilateral SIJ injection under fluoroscopy decrease tizanidine 4mg hs prn pain/spasms continue HEP as tolerated continue transdermal therapeutics compound cream to affected areas f/u 2 weeks after injection
== END 2025-03-07 10:59 | disposition home or self-care (01) ==
LOC: PM 10:58
PROVIDERS: PCP Family Medicine; Visit Provider Nurse Practitioner
DX: M46.1 Sacroiliitis, not elsewhere classified (principal); M47.816 Spondylosis without myelopathy or radiculopathy, lumbar region; M79.18 Myalgia, other site; E03.9 Hypothyroidism, unspecified
CPT/HCPCS: 36415; 84436; 84443; 84481; G0463

== ENCOUNTER 2025-03-12 11:27 | Day surgery (SDC) | payer MEDICARE, SELFPAY ==
--- OUTSIDE RECORDS SUMMARY | 2025-03-08 10:13 | XMS_ITS | Continuity of Care Document ---
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 Role Phone Demetrius Mirza MD Primary Care Provider Becky Crouch APRN Attending Provider Mary Schneider MD Referring Provider Talib Faustin MD Attending Provider Chang Russell MD Attending Provider [phone] Care Teams Patient Care Team Team Status: Active Member Role/Relationship Status Dates Demetrius Mirza MD Primary Care Provider Active Visit Care Team Team Status: Inactive Member Role/Relationship Status Dates Demetrius Mirza MD Primary Care Provider Active Start: December 26, 2024 End: December 26, 2024Stefanie Garnica ProviderActive Start: December 26, 2024 End: December 26, 2024 Visit Care Team Team Status: Inactive Member Role/Relationship Status Tati Mirza MD Primary Care Provider Active Start: February 22, 2025 End: February 22, 2025Stefanie Garnica ProviderActive Start: February 22, 2025 End: February 22, 2025 Visit Care Team Team Status: Active Member Role/Relationship Status Dates Demetrius Mirza MD Primary Care Provider Active Start: February 23, 2025 Mary Schneider MDReferring ProviderActiveStart: February 23, 2025 Saúl Tolliver ProviderActiveStart: February 23, 2025 Patient Care Team Team Status: Inactive Member Role/Relationship Status Dates Demetrius Mirza MD Primary Care Provider Active Start: March 08, 2025 End: March 08Saúl Keys ProviderActiveStart: March 08, 2025 End: March 08, 2025 Chief Complaint and Reason for Visit Chief Complaint Admit Date Follow Up 3 Months, H+N February 22 9:41am Mal Miguel base of tongue February 23 9:51am REF DR. ARMSTRONG FOR ABNORMAL CT February 1:20pm Reason for Visit Admit Date Squamous cell carcinoma of oropharynx Au migdalia 2024 12:32pm Squamous cell carcinoma of oropharynx Oc tober 2024 9:41am Allergies, Adverse Reactions, Alerts Allergen Type Severity Reaction Last Updated Verified Status adhesive Allergy Unknown rash March 08, 2025 1:46pm Yes Active niacin Allergy Unknown hives March 08, 2025 1:46pm Yes Active Social History Smoking Status Status Start Date End Date Date of Observa tion Never smoked tobacco (finding) November 23, 2024 7:50am Observation Status Observation Response Date of Response Legal Sex [facility] ([facility] Family History Relationship Condition Age at Onset Recorded Date/T olivia father Unknown GlaucomaUnknownmotherHeart diseaseUnknownDeceasedUnknownHistory of strokeUnknown HypertensionUnknownPulmonary emphysemaUnknownEnd-stage renal diseaseUnknown sisterDeceasedUnknownMalignant neoplasmUnknownLymphomaUnknown Problems Active Problems Problem Diagnosis/Recorded Date Onset Date Status C omments Right upper quadrant abdomin al pain March 08, 2025 2:07pm Unknown Active Squamous cell carcinoma of oropharynxJanuary 2024 4:58pmUnknownActive Hypnotic dependenceMarch 2023 10:30amUnknownActiveObstructive sleep apnea July 27, 2023 10:30amUnknownActiveOther acute postprocedural painMarch 2024 2:59pmUnknownActiveDiabetic neuropathyMarch 2023 10:30amUnknownActive Thrush, oralMarch 2024 9:24amUnknownActiveDM (diabetes mellitus)July 27, 2023 10:30amUnknownActiveCentral sleep apneaApril 2023 1:19pmUnknown ActiveCAD (coronary artery disease)July 27, 2023 10:30amUnknownActiveCoronary artery diseaseMarch 2023 10:30amUnknownActiveHypercholesteremiaMarch 2023 10:30amUnknownActiveCancer associated painFebruary 2024 10:00am UnknownActiveVentricular tachycardiaMarch 2023 10:30amUnknownActive Essential hypertensionMarch 2023 10:30amUnknownActivePolyneuropathy associated with underlying diseaseMarch 2023 10:30amUnknownActiveAbnormal CT of the abdomenOctober 2024 2:07pmUnknownActiveEncounter for palliative careFebruary 2024 10:00amUnknownActiveNauseaFebruary 2024 10:31am UnknownActiveNauseaMarch 2024 9:37amUnknownActiveConstipationMarch 2024 9:17amUnknownActiveSecondary to opioids, and decreased oral intakeVitamin D deficiency, unspecifiedMarch 2023 10:30amUnknownActiveExcessive daytime sleepinessMarch 2023 10:30amUnknownActiveInactive/Resolved Problems Problem Diagnosis/Recorded Date Onset Date Status C omments Immunosuppression August 20, 2024 7:54pm Unknown Resolv ed FeverApril 2024 7:54pmUnknownResolvedLung noduleMay 2024 8:09pmUnknown ResolvedPneumoniaApril 2024 7:54pmUnknownResolvedConstipationMay 2024 7:49pmUnknownResolved Medications Medication Status Dose Units Route Directions Qty Days Refills S tart Date Stop Date End Date Reason(s) Instructions Adherence Magic Mouthwash W/Lidocaine 240 Ml Bottle 240 mL bottle Discontinued 10 ML PO Four times daily as needed for mucositis 240 0February 2024 1:00amApril 2024 10:15amSquamous cell carcinoma of oropharynx Malignant neoplasm of oropharynx, unspecifiedTake 10ml by mouth, four times a day, as needed. SWISH AND SWALLOW.Magic Mouthwash W/Lidocaine 240 Ml Bottle 240 mL xndvxwNmowqoebelxm92WWLAEdhf times daily as needed for ljousunyq7509Aumex 2024 1:00amApril 2024 6:07pmSquamous cell carcinoma of oropharynx Malignant neoplasm of oropharynx, unspecifiedTake 10ml by mouth, four times a day as needed. 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 Sennosides (Black-Draught Lax-Senna) 8.6 mg tabletDiscontinued8.6MGPOTwice daily as needed for kqvkkojfimpt09199Jevqd 2024 12:00amJuly 2024 10:02am Constipation Constipation, unspecifiedUse if no bowel movement dailyClotrimazole 10 mg joyce Zwbaiseqbpin99QHZTJESN MEMFive times tinia02643Cudvp 2024 12:00amApril 2024 11:32amCandidiasis of mouth Candidal stomatitis thrushuse for 10 days, if symptoms persist, then complete the 14 days dispensed Oxycodone 5 mg/5 mL iepjxaazUjbluqznbrhq5JOLVMHBLH 4-6 HOURS as needed for pain 422162Egexq pril 2024 9:47amNeoplasm related pain 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) Malignant neoplasm of oropharynx, unspecifiedNystatin 500,000 unit tablet Iitcaqaoteyv497428FMYQZSPkig times jzyzo57182Jsptt 2024 12:00amMay 2024 9:27amSilver Sulfadiazine (Silvadene) 1 % nymgrAiepgbtwidcj1VITHWZIOLFSKC Twice etizt706Obhhd 2024 12:00amMay 2024 10:25amSquamous cell carcinoma of oropharynx Malignant neoplasm of oropharynx, unspecifiedApply to open areas on radiation site, twice a day, until healed.Sucralfate 100 mg/mL otlcvahtecBwtamibnyqvb95HN POThree times pchco619366Vsb 2024 12:00amMay 2024 10:26amNystatin 500,000 unit ubkchgPmppvuovjhmi135630EUZJSXFjmk times tzegr82917Mry 2024 9:24amJuly 2024 10:01amOxycodone 5 mg/5 mL dgucldgeGmsyaitkjetk72BDDVYdseg 4 hours as needed for rpuw941550Mun 2024July 2024 10:01amNeoplasm related pain 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) Malignant neoplasm of oropharynx, unspecifiedTizanidine 4 mg iypenbIgdotb9MJ Every wzkmkxy59554Dcaa 2024 11:33am1/2-1 tablet orally every evening; Complies with drug therapyFluticasone Propionate 50 mcg/actuation spray,rahivowiwsDzzwhd8SRUIZZOIYALMBYCAuuwy morningFebruary 2024 1:00am FreeTextSig: Nasal; Note: Source Status: Taking; Qty: 16 Unspecified; Provider: Boy Jaquez ( )Complies with drug therapyPsyllium Husk (Fiber (Psyllium Husk)) 0.4 gram capsuleDiscontinued0.4GMPODailyFebruary 2024 1:00amApril 2024 6:08pmOxycodone 5 mg/5 mL ebwifqeyIkkszeesnnob1FPBSTZIIT 4-6 HOURS as needed for jwwv245857Mkmpf 2024March 2024 11:31am Neoplasm related pain 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) Malignant neoplasm of oropharynx, unspecifiedHydrocodone-Acetaminophen 5-325 mg mapoufZwdyngjjztoa9BLTASDejld 12 hours as needed for bjck723Jpzys 2024March 2024 9:43amOther acute postprocedural pain Other acute postprocedural painOxycodone 5 mg/5 mL jmqgnlwzYerzwnfllpgo49NIKS Every 4 hours as needed for xivm382117Rjoml 2024May 2024 3:02pm Neoplasm related pain 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) Malignant neoplasm of oropharynx, unspecifiedFentanyl 12 mcg/hr patch 72 hour Fbmfdgfaddpi6EZMWTPASKRYFWBRRciys 72 sryxi7836Qcciq pril 2024 10:11am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, unspecified Malignant neoplasm of oropharynx, unspecifiedCefpodoxime 200 mg tablet Ushcxmyfsuyo943ZVNZYzkrl nxzxp614Yszzl 2024 12:00amMay 2024 10:22am must administer with a meal/foodPolyethylene Glycol 3350 (Miralax) 17 gram/dose lutzjgYmibhq03JOFIPjmds2202Woi 2024 12:00amComplies with drug therapy Lidocaine-Prilocaine 2.5-2.5 % qwfnoShasocrfevae9HCAEVYIUEXrwj as needed for rsxg130Immgkmyj 2024 2:08pmMay 2024 10:23amApply 1 hour prior to accessing port.Olanzapine 2.5 mg tabletDiscontinued2.5MGPOTwice rcfrw067Mkcjy 2024 12:00amJuly 2024 10:02amAlbuterol Sulfate 90 mcg/actuation aerosol powdr breath jxznsufkpEuszpuozpwuw6BTKWSCPDDFMCTJVOLZ 4-6 HOURS as needed for shortness of breath or wheezingJanuary 2024 1:00amMay 2024 10:56aqRzginqj-Qpyvcqqsmoech-Mnfagydx (Excedrin Migraine) 250-250-65 mg sekfilMxhcqnzygpkr1BIABDYRSKD 4-6 HOURS as needed for painJanuary 2024 1:00amApril 2024 6:05pmMetformin 500 mg jjwmseMdhsdk875HNPIBtjie morning June 14, 2024 1:00amComplies with drug therapyOmeprazole 40 mg capsule,delayed release(DR/EC)Qectwf44QXDHVqbtx morningJanuary 2024 1:00am Complies with drug therapyMultivitamin (Multiple Vitamins) drfhnnZcsxkj7PHTLM DailyJanuary 2024 1:00amComplies with drug therapyAspirin 81 mg tablet,qyzvyqhdAlwicm18HDFYJeezyDvgcwyd 2024 1:00amComplies with drug therapyDiphenhydramine-Acetaminophen (Tylenol Pm Extra Strength) 25-500 mg srifmePiwzcrmdpbkd4XIMGMSwrwj at bedtime as needed for sleepJanuary 2024 1:00amApril 2024 6:05pmProchlorperazine Maleate (Compazine) 10 mg tablet Fjwogswghelz40DDHMZwmkj 8 hours as needed for nausea and puoaplgk352Wjjvbjm 2024 1:00amMarch 2024 9:43amOndansetron 8 mg tablet,disintegrating Bezpcs4FUKGJgmkm 8 hours as needed for nausea and qkujitzk564Fyunfal 2024 1:00amComplies with drug therapyDoxycycline Monohydrate 100 mg capsule Qietkfiwhpwc373UEEESddkt dailyFebruary 2024 1:00amApril 2024 6:05pm Ferrous Sulfate (Ferosul) 325 mg (65 mg iron) wvlyutAgeths922ZRFCHafhj daily February 22, 2025 12:00amComplies with drug therapyDorzolamide 2 % dropsActive1 DROPSOPHTHALMICTwice dailyBlanchard [facility] 2023 12:00amComplies with drug therapy Latanoprost 0.005 % tepvwIjpkao2QCKLJTNJYRUJPCKEaqsv eveningBlanchard Valley [facility] System 2023 12:00amComplies with drug therapyFurosemide 20 mg xxpmhuAkbbrp71ZXWVBhexq morningBlanchard [facility] 2023 12:00amComplies with drug therapyFamotidine 20 mg tablet Fjsprdzmkpjc03LKRDLckao eveningBlanchard Valley [facility] System 2023 12:00amOctober 2024 1:48pm Tizanidine 4 mg xnoljyInyhsghrdtis7OWPFVgyow eveningBlanchard [facility] 2023 12:00amJuly 2024 11:34amIsosorbide Mononitrate 30 mg tablet extended release 24 hr Ujzkzpzalblp16TLAYVdstw morningKind[facility]20[facility] 12:00amMarch 2024 8:42am Rosuvastatin 10 mg tsdygnOxwdfe30NRVPZkmxx eveningBlanchard [facility] 2023 12:00am Complies with drug therapyAmlodipine 5 mg tawfjfEjjumh9GFOWZydhu [facility]2023 12:00amComplies with drug therapyClopidogrel 75 mg ensfkwLyjdzq52BGDH DailyBlanchard Valley Health System 2023 12:00amOn Hold: Resume on 10/04/24.Complies with drug therapyZonisamide 25 mg dqcpdvkEfbhvv15DURWJcess dailyBlanchard [facility] 2023 12:00am Complies with drug therapyIrbesartan 300 mg iidtmoTkiwyz447EZUOTylws morning July 27, 2023 12:00amComplies with drug therapySotalol 80 mg wddmvwJacxbq87AP POTwice dailyBlanchard Valley [facility] System 2023 12:00amComplies with drug therapyMometasone 0.1 % oubcgKxuevhpgygzj0QBYUZGRWGMBZTGjein776Niopyrg 2024 1:00amApril 2024 6:07pmSquamous cell carcinoma of oropharynx Malignant neoplasm of oropharynx, unspecifiedApply to radiation site, once a day, AFTER radiation treatments.Amlodipine 5 mg fiyoluMtxypesiamqr0GEGEIeijk July 20, 2024 1:00amMarc2024 8:39amClopidogrel (Plavix) 75 mg tablet Snnbslkdvtdv71RCQMZgvxdHcjgf 2024 1:00amMarc2024 8:40amDorzolamide 2 % uvhfxGevtjfccvvmd3FIDBSBJP-ZOCUCcivz times dailyMar 2024 1:00amMarc2024 8:40amFamotidine 20 mg cctarfSwwgmjvntpxi74IQQPHhqnsKyymu 2024 1:00amMarc2024 8:41amFurosemide 20 mg mznbcbKvbuzjzacqfd19GBBXOzpio morningMar 2024 1:00amMarc2024 8:41amIrbesartan 300 mg tablet Jnndjfmbplou085DCKPHczfe morningMar 2024 1:00amMarc2024 8:41am Isosorbide Mononitrate 30 mg tablet extended release 24 ioJdmoga61YTSKOdxcg morningMar 2024 1:00amComplies with drug therapyLatanoprost 0.005 % drops Pujtvxazpnqa7STGBDJXV-BSQFQtksu eveningMar 2024 1:00amMarc2024 8:42amRosuvastatin 10 mg wrctbpGcqufsqmwtqa55FUDCGrooe eveningMar 2024 1:00amMarc2024 8:44amSotalol 80 mg enaxufJutfhzsbxcma27MFYHKnqqe daily July 20, 2024 1:00amMarch 2024 8:44amTizanidine 4 mg capsuleDiscontinued 4MGPOEvery evening as neededMar 2024 1:00amMarc2024 8:45am Zonisamide 25 mg qhszmpnNwmgugmnybmq05FHIDVswmt dailyBlanchard Valley Health System 2024 1:00amMarc2024 8:45amAlbuterol Sulfate 90 mcg/actuation aerosol powdr breath pnibumgcxYbwoholvamzy5THXANAOONEYEXRSNWA 4-6 HOURS as neededMar 2024 1:00amMarc2024 8:39amAspirin 81 mg tablet,vkvxdkhlHolhmztphuat98LOIN DailyMarch 2024 1:00amMarch 2024 8:01gjBqpnxnf-Ihoidqfaicgzb-Uueiinwj (Excedrin Migraine) 250-250-65 mg fsidffWvdbyzteumfd0UIHXAIMDRY 4-6 HOURS as neededMarch 2024 1:00amMarch 2024 8:40amDiphenhydramine-Acetaminophen (Tylenol Pm Extra Strength) 25-500 mg lekgymYwwmolgjxfzl8LAVTJQsheb at bedtime as neededMarch 2024 1:00amMarch 2024 8:40amMetformin 500 mg tablet Ahuhwguggizm007WAPLUvpmp morningMarch 2024 1:00amMarch 2024 8:43am Mometasone 0.1 % rlbtfDnjfgozrjyyt5ECIBFETKNEAXVMgftbPnbtx 2024 1:00amMarch 2024 8:43amMultivitamin (One Daily Multivitamin) ykycycPnobefwxxlaf7ZNEMC DailyMarch 2024 1:00amMarch 2024 8:43amOmeprazole 40 mg capsule,delayed release(DR/EC)Lcaspvwnjhsd78MYIEGtnek morningMarch 2024 1:00amMarch 2024 8:43amOndansetron 4 mg tablet,disintegratingDiscontinued8 MGPOEvery 8 hoursMarch 2024 1:00amMarch 2024 8:43amProchlorperazine Maleate (Compazine) 10 mg tcxaixCrdtqnlhpgxs63IXCTQofsr 8 hours as neededMarch 2024 1:00amMarch 2024 8:44amFluticasone Propionate 50 mcg/actuation spray,vahitfxdmtXghlfuqtomfy7CJLUPECGAFQJXFNHuramWmkpj 2024 1:00amMarch 2024 8:41amadminister into each nostrilPsyllium Husk (Fiber (Psyllium Husk)) 0.4 gram capsuleDiscontinued0.4GMPODailyMarch 2024 1:00amMarch 2024 8:44amDoxycycline Monohydrate 100 mg munsersOnfqcmkqmaym314VZEWUhucq daily July 20, 2024 1:00amMarch 2024 8:40amLidocaine-Prilocaine 2.5-2.5 % orilsBqrxsyqctqmb9NRLXPYQEZev neededJuly 20, 2024 1:00amMarch 2024 8:42amHydrocodone-Acetaminophen 5-325 mg nafhciClrjcgxnghgq3GERKZQhogf daily as hjevqk8Wgned2024 1:00amMarch 2024 8:41amMagic Mouthwash W/Lidocaine 240 Ml Bottle 240 mL bottleDiscontinuedMLPOFour times daily as uyxlnu365Qmizk 2024 1:00amMarch 2024 8:42amOxycodone 5 mg/5 mL solutionDiscontinued5 MGPOEVERY 4-6 HOURS as rbmdki0PzplrJuly 20, 2024 1:00amMarch 2024 8:44am Potassium Chloride (Klor-Con M20) 20 mEq tablet,ER particles/crystals Tmjleznububz29TAFZTXsutf liskp735Qetuq 2024 12:00amMay 2024 10:25am Magic Mouthwash W/Lidocaine 240 Ml Bottle 240 mL dhlmwoLrmdtknkpozz21AWXLPfep times daily as needed for nqcbatbid8099Nvgzo 2024 10:14amMay 2024 10:23amSquamous cell carcinoma of oropharynx Malignant neoplasm of oropharynx, unspecifiedTake 10ml by mouth, four times a day, as needed. SWISH AND SWALLOW. will call when they need refill Immunizations Immunization Event Date Not Given Reason Dose Number Counseling Director Lot Number Reason(s) Given Vaccine Information Statement (VIS) Detail Administration Location COVID-19 mRNA, Comirnaty ([employer]) June 06, 2020 COVID-19 mRNA, Comirnaty ([employer])June 27OVI mRNA, Comirnaty (Pfizer)March 06OVID Comirnaty ([employer]) Tri-Sucrose +November 25OVID-19 ([employer]) 7217-0194 12Y and olderDecember 2022Fluzone TIV High-Dose 65YR+April 17, 2024 Medical Equipment Device Date Implanted Device Details Vascular port/catheter July 17, 2024 ALEKSANDR: [id number] Issuing Agency: [employer] Device Id: [id number] Expiration Date: 2025-08-14 Lot Number: [id number] Procedures Procedure Date Performed Status PET tumor subq tx strat sb-mt November 13, 2024 12 :26pm completed Relevant Diagnostic Tests and/or Laboratory Data Laboratory Results Test Collection Date/Time Result Date/Time Result Interpretation Reference Range Result Comment Performing Site Corrected White Blood Count November 13, 2024 12:40pm November 13, 2024 1:07pm 8.5 10*3/uL 4.1-10.5F[facility] [id number] [address] [facility] [address]Xwgxtrzhubf WBC CountJune 2024 12:40pmJune 2024 1:07pm8.5 10*3/uL4.1-10.5FUniversity [facility] [id number] [address] [facility] [address]Uhf Blood CountJune 2024 12:40pmJune 2024 1:07pm 4.11 10*6/uL3.90-5.60[facility] [id number] [address] [facility] [address]DpbhtxucuxJclh 2024 12:40pmJune 2024 1:07pm12.8 g/dLBelow low yfnysl13.0-17.0[facility] [id number] [address] [facility] [address]CymzdcvwrhAjzs 2024 12:40pmJune 2024 1:07pm38.5 % Below low emtnfs69.8-50.0[facility] [id number] [address] [facility] [address]Knzn Corpuscular VolumeJune 2024 12:40pmJune 2024 1:07pm93.7 fL83.5-101[facility] [id number] [address] [facility] [address]Ceil Corpuscular HemoglobinJune 2024 12:40pmJun2024 1:07pm31.1 pg27.5-35.2FUniversity [facility] [id number] [address] [facility] [address]Jong Corpuscular Hemoglobin ConcentJun2024 12:40pmJun2024 1:07pm33.2 g/dL32.5-35.6FUniversity [facility] [id number] [address] [facility] [address]Iho Cell Distribution WidthJun2024 12:40pmNovember 13, 2024 1:07pm14.7 %12.0-14.8[facility] [id number] [address] [facility] [address]Zrzzvhpf CountJun2024 12:40pmJun2024 1:31jl272 10*3/rG557-806MsektgamqCincinnati Shriners Hospital [facility] [id number] [address] [facility] [address]Zviw Platelet VolumeJun2024 12:40pmJun2024 1:07pm8.4 fL6.6-10.1FUniversity [facility] [id number] [address] [facility] [address]Kwryqhxmdwd (%) (Auto)November 13, 2024 12:40pmJun2024 1:49pm65.3 %.[facility] [id number] [address] [facility] [address]Telsawfinnv (%) (Auto)November 13, 2024 12:40pmJun2024 1:49pm22.1 %.[facility] [id number] [address] [facility] [address]Ashvngmdi (%) (Auto)November 13, 2024 12:40pmJun2024 1:49pm9.2 %.[facility] [id number] [address] [facility] [address]Zyqyalukvek (%) (Auto)November 13, 2024 12:40pmJun2024 1:49pm2.9 %.[facility] [id number] [address] [facility] [address]Xnplntako (%) (Auto)November 13, 2024 12:40pmJune 2024 1:49pm0.5 %.[facility] [id number] [address] [facility] [address]Ulprcxjby RBC Relative Count (auto)November 13, 2024 12:40pmJune 2024 1:49pm0.2 /100{WBC}0-0.5F[facility] [id number] [address] [place] [id number] # (Auto)November 13, 2024 12:40pmJune 2024 1:49pm5.6 10*3/uL1.8-7.7FUniversity [facility] [id number] [address] [place] [address]Lymphocytes # (Auto)November 13, 2024 12:40pmJun2024 1:49pm1.9 10*3/uL1.00-4.8[facility] [id number] [address] [facility] [address]Bmmfulchc # (Auto)November 13, 2024 12:40pmJune 2024 1:49pm 0.8 10*3/uL0.0-0.8[facility] [id number] [address] [facility] [address]Dczktmpfmnc # (Auto)November 13, 2024 12:40pmJune 2024 1:49pm0.2 10*3/uL0.0-0.45[facility] [id number] [address] [facility] [address]Mlugarshv # (Auto)November 13, 2024 12:40pmJune 2024 1:49pm 0.0 10*3/uL0.0-0.2F[facility] [id number] [address] [facility] [address]Fbu Blood Cell MorphologyJun2024 12:40pmJun2024 1:49pmNormalNormalCincinnati Shrin[facility] [id number] [address] [facility] [address]Ikyohkwn EstimateJune 2024 12:40pmJune 2024 1:49pm NormalNormGreen [facility] [id number] [address] [facility] [address]Ytpgpndq Morphology CommentJun2024 12:40pmJune 2024 1:49pmNormalNormalCincinnati [facility] [id number] [address] [facility] [address]Tlaiemd LevelJune 2024 12:40pmJun2024 1:66xk354 mg/dLAbove high qygmas26-423TQP recommended reference rangeRandom Glucose Reference Range is dependent on time and content of last meal. Glucose of more than 200 mg/dL in a nonstressed, ambulatory subject supports the diagnosisof Diabetes Mellitus.[facility] [id number] [address] [facility] [address]Ieumm Urea NitrogenJune 2024 12:40pmJun2024 1:24pm29 mg/dLAbove high normal7-25[facility] [id number] [address] [facility] [address]IsxhxfjqwkPqus 2024 12:40pmJun2024 1:24pm0.80 mg/dL0.70-1.30[facility] [id number] [address] [facility] [address]Szbbqereo GFR (CKD-EPI)November 13, 2024 12:40pmJun2024 1:24pm> 60.0 mL/MinCincinnati Shriners Hospital [facility]tr [id number] [address] [facility] [address]Weronj LevelJune 2024 12:40pmJun2024 1:08nr462 mmol/C162-187PoktgqjrtCincinnati Shriners Hospital [facility]tr [id number] [address] [place] [address]Potassium LevelJune 2024 12:40pmJune 2024 1:24pm4.2 mmol/L3.5-5.1FUniversity [facility] [id number] [address] [facility] [address]Lrowvqfw LevelJune 2024 12:40pmJun2024 1:92dk656 mmol/X98-260JtoqrrtgpCincinnati Shriners [facility] [id number] [address] [facility] [address]Pdtaff Dioxide LevelJune 2024 12:40pmJune 2024 1:24pm26.6 mmol/L21.0-31.0[facility] [id number] [address] [facility] [address]Vpujt GapJun2024 12:40pmJune 2024 1:24pm10.6 mEq/L6.0-15.0[facility] [id number] [address] [facility] [address]Haiuqci LevelJune 2024 12:40pmJune 2024 1:24pm9.3 mg/dL8.6-10.3FUniversity [facility] [id number] [address] [facility] [address]Lnowltual LevelJune 2024 12:40pmJune 2024 1:24pm2.1 mg/dL1.9-2.7FUniversity [facility]als [facility] [id number] [address] [facility] [address]Qwfrn ProteinJune 2024 12:40pmJune 2024 1:24pm7.3 g/dL6.4-8.9[facility] [id number] [address] [facility] [address]WbbgddvIkke 2024 12:40pmJune 2024 1:24pm4.2 g/dL 3.5-5.7FUniversity [facility] [id number] [address] [facility] [address]GnqzllwgKzgb 2024 12:40pmJune 2024 1:24pm3.1 g/dL [facility] [id number] [address] [facility] [address]Ivbrusr/Globulin RatioJune 2024 12:40pmJune 2024 1:24pm1.4F[facility] [id number] [address] [facility] [id number] BilirubinJune 2024 12:40pmJun2024 1:24pm0.4 mg/dL0.3-1.0[facility] [id number] [address] [facility] [address]Mrvxczvnm Amino Transf (AST/SGOT)November 13, 2024 12:40pmJun2024 1:24pm15 U/F01-38YkpqoslzuCincinnati Shrin[facility]tr [id number] [address] [facility] [address] Aminotransferase (ALT/SGPT)November 13, 2024 12:40pmJun2024 1:24pm14 U/L7-52[facility] [id number] [address] [facility] [address]Pkheaeqg PhosphataseJun2024 12:40pmJun2024 1:24pm80 U/U71-662BnsldtykaCincinnati Shriners Hospital [facility]tr [id number] [address] [facility] [address]Urllpcap Creatinine Clearance (ChemJune 2024 12:40pmJun2024 1:24pm60.92[facility] [id number] [address] [facility] [address]Koqcuib GlucoseJun2024 12:36pmJun2024 1:34ex909 mg/dLRandom Glucose Reference Range is dependent on time and content of last meal. Glucose of more than 200 mg/dL in a nonstressed, ambulatory subject supports the diagnosis of Diabetes Mellitus.Point of Care testing Diagnostic Imaging Reports Author Mario Urias [facility] HospitalAuthoredJune 2024 3:39pmReportDictated Date/TimeDictated ByStatusRadiology ReportJune 2024 3:39pmJosehemanth Urias Jr DOcompleteGood [facility] Main [place] [id number] Nuclear Medicine Report Signed Patient: Jair Bennett MR#: [id number] : 1940 Acct:[id number] Age/Sex: 84 / M ADM Date: 5 Loc: [facility]: [facility]: Talib Faustin MD Copies to: Mario Urias Jr, DO Mary K Demboske, APRN Mhd MD Dennis Paredes MD~ Ordering Provider: Becky Crouch APRN Date [...] Jr., D.O. 11/13/2024 3:50 PM Dictation Location: [place] [address] Transcribed By: [facility] 11/13/24 1550 Dictated By: Mario Urias Jr, DO 11/13/24 1539 Signed By: <Electronically signed by Mario Urias Jr, DO in OV> 11/13/24 1550 Vital Signs Vital Reading Result Reference Range Collection Date/Time Weight 72.12 kg December 26, 2024 1:64nlVlekyd54 [in_i]October 04, 2024 2:76awOlwmcc72.12 kgAugust 2024 1:08pmBody Lzaiwqmncvh65.3 [degF]97.6-99.0April 2024 8:23am Heart Rate90 /vdg14-926Wiexv 2024 8:23amRespiratory rate18 /qjc66-01Tuptm 2024 8:23amOxygen saturation by Pulse bcosvtzh54 %95-100April 2024 8:23amBP Yxiipdme137 mm[Hg]100-140April 2024 8:23amBP Kpisdxlkv81 mm[Hg] 60-100April 2024 8:18fuIvkqac11 [in_i]March 08, 2025 1:38olPeaseo43.30 kgOctober 2024 1:46pmHeart Rate63 /ulo38-575Kgnfnlr 23rd, 2025 1:46pmBP Tzkbnldx731 mm[Hg]100-140Oct2024 1:46pmBP Tvzllagee63 mm[Hg]60-100 March 08, 2025 1:46pmBMI (Body Mass Index)25.7 kg/g2Cwtdkpo 2024 1:46pm Advance Directives Advance Directive Response Recorded Date/ Time Advance Directives Yes July 26 8:22am Insurance Providers Guarantor Annabelle Lizama Address [address] [facility] [address]Vfydxax Info.Home Phone: Coverage Status Update:2025 Payer Group Member ID Coverage Type Subscriber Relationship to Subscriber Effective Date Expiration Date [facility] Medicare Advantage PFFS Retired Id: [id number] Bauer , P Id: [id number] [address] [facility] [address] Home Phone: Email: [email or web address] Encounters Encounter Location(s) Arrival/Admit Date Discharge/Departure Date Discharge/Departure Disposition Provider(s) Departed Physician/ Provider [facility] December 26, 2024 12:32pm December 26, 2024 1:25pm Discharged to home care or self care (routine discharge) Becky Crouch APRN Departed Physician/ Provider Office Visit -[facility] February 22, 2025 9:41am February 22, 2025 10:08am Discharged to home care or self care (routine discharge) Becky Crouch APRN Registered Recurring -[facility] Acute February 9:51am Talib Faustin , JENNIFEReparted Physician/Provider [facility] 1:20pmOctober 2024 2:12pmDischarged to home care or self care (routine discharge)Chang Russell MD Recent Diagnosis Onset Date Admit Date Squamous cell carcinoma of oropharynx Unknown December 26, 2024 12:32pm Squamous cell carcinoma of oropharynx Unknown February 22, 2025 9:41am Assessments Diagnosis Onset Date Resolution Status Admit Date Squamous cell carcinoma of oropharynx acuteAugust 2024 12:32pmSquamous cell carcinoma [facility]arynxmethod[facility] 2024 9:41am Plan of Treatment Author Becky [facility] 2024 10:34am Return to clinic in 6 months with DIRECTOR CAMP Assessment: 84-year-old male with stage II T1 [...] Posttreatment PET November 13, 2024 is negative. Saw ENT last 12/11/24 with JUVE on exam or scope. PEG tube removed January 2025, doing well with oral intake. We are pleased with his continued progress. No evidence of recurrence on exam. We will continue to alternate visits with ENT and will see him back in 6 months. He is agreeable. Author Becky [facility] 2024 1:41pm Refer for G-tube removal Return [...] G-tube was placed by surgery here at [facility] and patient is hopeful to have this removed now that his weight is maintaining without any tube feeds over the last 2+ weeks. We will refer him back for removal and will see him back in February 2025 for physical exam. Future Tests Future scheduled test information is unavailable Pending Tests Test Name Ordered Date Scheduled Date CT abdomen w con March 08, 2025 2:06pm Future Visits Future appointment information is unavailable Future Procedures Procedure Name [...] * Maintain intact skin integrity Updated: 3Ckayla [facility] 2024 8:12am
--- OUTSIDE RECORDS SUMMARY | 2025-03-12 11:30 | XMS_ITS | Encounter Summary ---
Author Organization [facility] Address [address] [place] [address] Care Team Providers Care Avionics Technician Name Role Phone Yajaira Roque RESISTANCE BRAZER-C Primary Care Provider [phone] Reason for Visit * ReasonCommentsMed Refill Encounter Details DateTypeDepartmentCare Team (Latest Contact Info)Nsskkcupzwn76/12/2025Refill [facility] [address] [place] [address] Margaret Arellano MD [address] [facility] [address] [facility] [place] [address] Chest pain, unspecified type; Hypertension, unspecified type Social History Tobacco UseTypesPacks/DayYears UsedDateSmoking Tobacco: FormerCigarettesQuit: 1984Smokeless Tobacco: NeverAlcohol UseStandard Drinks/WeekCommentsYes0 (1 standard drink = 0.6 oz pure alcohol)OCCASIONALUT Safety & EnvironmentAnswerDate RecordedFear of Current or Ex-PartnerNot on file07/08/2023Emotionally AbusedNot on file07/08/2023hysically AbusedNot on file07/08/2023Sexually AbusedNot on file07/08/2023hysically or Sexually AbusedNot on 07/08/2023Sex and Gender InformationValueDate RecordedSex Assigned at TgdevKknr73/19/2025 3:16 PM EDT Legal GvzNozp7511/13/2021 12:17 AM EDTGender YtwpclmjIovp40/19/2025 3:16 PM EDT Sexual OrientationHeterosexual or Zmyxmzzk00/19/2025 3:16 PM EDTdocumented as of this encounter Plan of Treatment Not on file documented as of this encounter Visit Diagnoses Diagnosis Chest pain, unspecified type Hypertension, unspecified type documented in this encounter Care Teams Team MemberRelationshipSpecialtyStart DateEnd Date Yajaira Roque FNP-C [address] [place] [address] PCP - GeneralNurse Practitioner12/05/24documented as of this encounter
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
--- OUTSIDE RECORDS SUMMARY | 2025-03-12 11:30 | XMS_ITS | Clinical Summary ---
Author Organization [facility] Address [address] [place] [address] Phone Care Team Providers Care Hoistman Name Role Phone Demetrius Mirza MD Primary Care Provider [phone] Allergies Active AllergyReactionsCriticalityNoted GtdpXnqffjhaDdoreteiXdpzOqm40/12/2024 Adhesive Tape-GrkdzsjwiPqpbEgw22/05/2019NiacinHives,Itching,Mhllhgu2001/19/2019 Medications MedicationSigDispense QuantityRefillsLast FilledStart DateEnd DateStatus amLODIPine (Norvasc) 5 mg tablet Take 1 tablet (5 mg) by mouth once daily.02/21/2024ctive aspirin 81 mg EC tablet Take 1 tablet (81 mg) by mouth once daily.Active yecjzsmlew-wfksvsyrwhuqp-uiad 50-325-40 mg tablet Take 1 tablet by [...] 1 each.Active Active Problems ProblemNoted DateDiagnosed DatePrimary jmvayqgbmcsf14/26/2024oronary artery disease involving autologous artery coronary bypass graft05/11/2024acemaker 05/11/2024Stented coronary qshult5705/11/2024Ventricular vhitgmtoejn49/26/2024OSA (obstructive sleep apnea)05/11/2024Gastroesophageal reflux idrdjff5005/11/2024 Wveqodvky61/26/2024iabetes mellitus, type Oral xbpcwg5504/07/2024 Malignant neoplasm of floor of mouth04/07/2024 Encounters DateTypeDepartmentCare HgciYhfnvhsswdk92/22/2025bstract [facility] [place] [address] [place] [address] Mary Schneider MD 12/11/2024 1:45 PM EDTOffice Visit [facility] [address] [place] [address] Mary Schneider MD 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); G tube feedings (Multi); At risk for rwnzkldebpfd09/28/2025Travelfrom Last 3 Months Family History Medical HistoryRelationNameCommentsCancerFatherPaul J BauerHearing lossFather Daniel J BauerVision lossMaternal GrandfatherGeorge SmithHypertensionMaternal GrandmotherEdna SmithAsthmaMotherDoris M BauerHypertensionMotherDoris M Bennett Vision lossOtherAnna BremmserHypertensionPaternal GrandmotherKatherine Bennett Vision lossPaternal GrandmotherKatherine BauerCancerSisterJudy ReisigMotion SicknessSisterJudy ReisigRelationNameStatusCommentsFatherPaul J BauerAlive Maternal GrandfatherGeorge SmithAliveMaternal GrandmotherEdna SmithAliveMother Estee M BauerAliveOtherAnna BremmserAlivePaternal GrandmotherKatherine Bennett AliveSisterJudy ReisigAlive Social History Tobacco UseTypesPacks/DayYears UsedDateSmoking Tobacco: YrctzjZwfvcfmvyv086Oguo: 05/17/1983Smokeless Tobacco: Former Tobacco Cessation:Counseling Given: No Alcohol UseStandard Drinks/WeekCommentsYes2 (1 standard drink = 0.6 oz pure alcohol)or less or weekPHQ-2AnswerDate RecordedPatient Health Questionnaire-2 Bzhti573Sex and Gender InformationValueDate RecordedSex Assigned at BirthNot on fileLegal PtkQwzw46/25/2022 9:24 AM ESTGender CmswgemvAjih27/26/2024 5:56 AM ESTSexual TopmucnnvowDvdelmcr90/26/2024 5:56 AM EST Last Filed Vital Signs Vital SignReadingTime TakenCommentsBlood Ostemazg357/69012/11/2024 1:30 PM EDT Ukuqr0072 2:13 PM ZWKNqzoqzkgjgo50 ??C (96.8 ??F)09/11/2024 1:07 PM EDT Respiratory Njhx2036 2:13 PM ESTOxygen Xbbgqonizb63%06/05/2024 2:13 PM ESTInhaled Oxygen Concentration--Mbehur13.7 kg (160 lb 2.6 oz)12/11/2024 1:30 PM AVZZpvfgd263.1 cm (5' 5 )09/11/2024 1:07 PM EDTBody Mass Index26.65009/11/2024 1:07 PM EDT Plan of Treatment DateTypeDepartmentCare Team (Latest Contact Info)Lcqajepgqnj07/23/2026 1:30 PM ESTOffice Visit [facility] [address] [place] [address] [place] [address] [place] [address] Health MaintenanceDue DateLast DoneCommentsDiabetes: Hemoglobin A1C1939 Diabetes: Urine Protein Sgojnqqpe02/15/8250Bdjybqocuukoex33/15/1940Lipid Panel 1940Medicare Annual Wellness Visit (AWV)1939Diabetes: Retinopathy Theonnnyj85/15/1950DTaP/Tdap/Td Vaccines (1 - Tdap)10/29/1961Influenza Vaccine (#1)512/06/2023, 04/12/2023, 02/18/2021, Additional history exists COVID-19 Vaccine ( season)/, 11/25/2021, 03/06/2021, Additional history existsCreatinine Level/ Potassium Level/4Pneumococcal CbbcjsvHqeinqyaa07/08/2024, 01/30/2014Zoster GfunokylYnpyhbxei30/25/2024, 4RSV High Risk: (Elderly (60+) or Population)Epeoiyfqx35/06/2024HIB VaccinesAged OutNo longer eligible based on patient's [...] topic Procedures Procedure NamePriorityDate/TimeAssociated DiagnosisCommentsBASIC METABOLIC PANEL Dscfsgy8404/11/2024 9:14 AM EST Oral lesion 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) from Last 3 Months or Most Recently Relevant to Health Maintenance Results * (ABNORMAL) Basic Metabolic Panel (04/11/2024 9:14 AM EST)ComponentValueRef RangeTest MethodAnalysis TimePerformed AtPathologist AtsuzotucKzmqffc615(H)74 - 99 mg/dL LAB CHEMISTRY METHOD 04/11/2024 11:09 AM [facility] GSJAquupa063703 - 145 mmol/L LAB CHEMISTRY METHOD 04/11/2024 11:09 AM [facility] LABPotassium4.53.5 - 5.3 mmol/L LAB CHEMISTRY METHOD 04/11/2024 11:09 AM [facility] NOXKxpultot85627 - 107 mmol/L LAB CHEMISTRY METHOD 04/11/2024 11:09 AM [facility] ZGDHysgjczmknn6473 - 32 mmol/L LAB CHEMISTRY METHOD 04/11/2024 11:09 AM [facility] LABAnion Xql7305 - 20 mmol/L LAB CHEMISTRY METHOD 04/11/2024 11:09 AM [facility] LABUrea Ndekrxqc970 - 23 mg/dL LAB CHEMISTRY METHOD 04/11/2024 11:09 AM [facility] LABCreatinine0.960.50 - 1.30 mg/dL LAB CHEMISTRY METHOD 04/11/2024 11:09 AM [facility] OBEuCXM34>60 mL/min/1.73m*2 LAB CHEMISTRY METHOD 04/11/2024 11:09 AM [facility] LABComment: Calculations of estimated GFR are performed using the 2020 CKD-EPI Study Refit equation without therace variable for the IDMS-Traceable creatinine methods. https://jasn.asnjournals.org/content//ASN.5911365873 Calcium9.98.6 - 10.6 mg/dL LAB CHEMISTRY METHOD 04/11/2024 11:09 AM [facility] LABSpecimen (Source)Anatomical Location / LateralityCollection Method / VolumeCollection TimeReceived TimeBloodVenous blood specimen / UnknownVenipuncture / Ejhvrxj8904/11/2024 9:14 AM EST04/11/2024 10:37 AM EST Narrative Authorizing ProviderResult TypeResult StatusTracy Adrian JERONIMO BLOOD ORDERABLESFinal ResultPerforming OrganizationAddressCity/State/ZIP CodePhone Number [facility] [address] [phone] from Last 3 Months or Most Recently Relevant to Health Maintenance Insurance Advance Directives For more information, please contact: [phone] (Available ) TypeDate RecordedPatient RepresentativeExplanationHealthcare Power of Atty 05/11/2024Living Will05/11/2024 Care Teams Team MemberRelationshipSpecialtyStart DateEnd Date Demetrius Mirza MD [address] [facility] [place] [address] PCP - GeneralFamily Tvmbnyhw48/26/24
--- OUTSIDE RECORDS SUMMARY | 2025-03-12 11:30 | XMS_ITS | Encounter Summary ---
Author Organization [facility] Address [address] [place] [address] Care Team Providers Care College Professor Name Role Phone Yajaira Roque ASSEMBLER ARRANGER-C Primary Care Provider [phone] Reason for Visit * ReasonCommentsMed Refill Encounter Details DateTypeDepartmentCare Team (Latest Contact Info)Lklnjrqkcql22/21/2025Refill [facility] [address] [place] [address] Daniel Brunner MD [address] [place] [address] Mitral valve insufficiency, unspecified etiology Social History Tobacco UseTypesPacks/DayYears UsedDateSmoking Tobacco: FormerCigarettesQuit: 1984Smokeless Tobacco: NeverAlcohol UseStandard Drinks/WeekCommentsYes0 (1 standard drink = 0.6 oz pure alcohol)OCCASIONALUT Safety & EnvironmentAnswerDate RecordedFear of Current or Ex-PartnerNot on file07/08/2023Emotionally AbusedNot on file4Physically AbusedNot on 07/08/2023Sexually AbusedNot on file07/08/2023hysically or Sexually AbusedNot on file07/08/2023Sex and Gender InformationValueDate RecordedSex Assigned at JqutdWgqs82/19/2025 3:16 PM EDT Legal KhmWdik4611/13/2021 12:17 AM EDTGender JrkdhkgoWwkn60/19/2025 3:16 PM EDT Sexual OrientationHeterosexual or Tbarnzjs94/19/2025 3:16 PM EDTdocumented as of this encounter Plan of Treatment Not on file documented as of this encounter Visit Diagnoses Diagnosis Mitral valve insufficiency, unspecified etiology documented in this encounter Care Teams Team MemberRelationshipSpecialtyStart DateEnd Date Yajaira Roque FNP-C [address] [place] [address] PCP - GeneralNurse Practitioner12/05/24documented as of this encounter
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
--- OUTSIDE RECORDS SUMMARY | 2025-03-12 11:31 | XMS_ITS | Clinical Summary ---
Author Organization [facility] Address [id number] [address] [place] [address] Care Team Providers Care Manager Social Work Name Role Phone Unavailable Primary Care Provider Unavailabl e Allergies Active AllergyReactionsCriticalityNoted DateCommentsAdhesive Tape-Silicones 01/19/20197045Aaajzu01/05/2019 Medications MedicationSigDispense QuantityRefillsLast FilledStart DateEnd DateStatus glimepiride (AMARYL) 2 mg tablet Indications:Type 2 diabetes mellitus without complication, without long-term current use of insulin ([facility])Take 1 tablet (2 mg total) by [...] (six) hours as needed for muscle spasms.Active wpdzxyrdvj-julyabkyxi-bdr-cod (FIORICET WITH CODEINE) 83-870-29-30 mg per capsule Take 1 capsule by [...] mouth daily.Active Active Problems ProblemNoted DateDiagnosed DatePreventative [facility] care01/29/2019 Assessment & Plan (01/29/2019 8:01 PM EDT): DATE WHEN VACCINE ------- --FLU YRLY IN FALL --TETANUS Q 10 YRS [id number] --HZ ONCE AGE 59 Needs 2019 --PREVNAR [...] arb/arti, statin On arb, asa, statin Seasonal zzubkvdtu25/15/2019 Overview (01/29/2019): flnoase CAD (coronary artery disease)01/29/2019 [...] Hearing Aids Hyperlipidemia Overview (01/29/2019): [place] , [place] 3 Hypertension Overview (01/29/2019): Amlodipine, avapro Migraines Overview (01/29/2019): fioricet with codiene, depakote Neuropathy Overview (01/29/2019): feet / DM / gabapentin NPH (normal pressure hydrocephalus) Overview (01/29/2019): vp site shunt Osteoarthritis Overview (01/29/2019): Mobic, tyenol, zanaflex PacemakerPeripheral edema Overview (01/29/2019): lasix Prostate cancerSkin cancerUrine incontinence Overview (01/29/2019): post prostate suregery / 2 urethral valve surgeries Insomnia Overview (01/29/2019): ambien Cardiac dysrhythmia Overview (01/29/2019): Pacemaker, plavix, asa, sotalol Resolved Problems ProblemNoted DateDiagnosed DateResolved GhslJylpyviybogvva72/15/2019 Overview (01/29/2019): colonoscopy Immunizations ImmunizationAdministration DatesNext DueInfluenza, Xcrteugpxvi50/08/2018 Pneumococcal Dwgnsjdux93/16/2014 Family History Medical HistoryRelationNameCommentsCOPDMotherHypertensionMotherKidney failure MotherRelationNameStatusCommentsFatherDeceased (Age 98)old age , glaucomaMother (Age 88)liver failure, CHF ESRD dialysis Social History Tobacco UseTypesPacks/DayYears UsedDateSmoking Tobacco: FormerCigarettesPipe CigarsSmokeless Tobacco: FormerSnuff, Chew Tobacco Cessation:Counseling Given: Yes Alcohol UseStandard Drinks/WeekCommentsNot Currently0 (1 standard drink = 0.6 oz pure alcohol)RARELYChildcareAnswerDate BwhpbtnlEjyjdaxxiNwmcquv74/28/2019 EmploymentAnswerDate ZuegodrvNpfamgakjvOxnwlkx91/28/2019Purpose - LifeAnswerDate RecordedPurpose and direction in lxbmTnoniwh59/11/2021ex and Gender Information ValueDate RecordedSex Assigned at BirthNot on fileLegal LeeIfsw2601/11/2019 11:13 AM EDTGender IdentityNot on fileSexual OrientationNot on file Last Filed Vital Signs Vital SignReadingTime TakenCommentsBlood Glbxvgko511/7409 2:35 PM EDT Kcqzc680701/19/2019 2:35 PM HRCMpzivqgdyjp48.3 ??C (97.4 ??F)01/19/2019 2:35 PM EDTRespiratory Qkit8077 2:35 PM EDTOxygen Nnlwnseden80%01/19/2019 2:35 PM EDTInhaled Oxygen Concentration--Goaclp07.2 kg (203 lb 4.8 oz)01/19/2019 2:35 PM EDTHeight--Body Mass Index-- Plan of Treatment Health MaintenanceDue DateLast DoneCommentsDepression Acyoypoxf62/15/1952Tobacco Ooniwvgrk39/15/1952DTaP,Tdap and Td Vaccines (1 - Tdap)10/29/1958Zoster (Shingles) Vaccine (1 of 2)10/29/1958Fall Risk Lcvriklgv56/15/2005Influenza Lyakdwr33/01/84342501/22/2018 Medical Devices Not on file Insurance
--- OUTSIDE RECORDS SUMMARY | 2025-03-12 11:55 | XMS_ITS | CCD ---
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 Name Role Phone MIREILLERUTH REGALADOAB A Admitting Unavailable ELRUTH BAEAB Lyssa Attending Unavailable DEMETRIUS COOPER Referring Unavailable DEMETRIUS COOPER Primary Care Unavailable Param Cosme Attending Provider [phone] Demetrius Cooper Primary Care Provider Param Cosme Attending Provider Demetrius Cooper Primary Care Provider [phone] Leti Garcia Unavailable MG LONDON Primary Care Physician KAT Westfall Attending Provider [phone] MD Mg London Primary Care Provider [phone] KAT Westfall Attending Provider MD Mg London Primary Care Provider MD Erwin Salazar Attending Provider [phone] Erwin Salazar Unavailable MARCE Hardy Attending Provider KAT Westfall Other Provider Demetrius Cooper. Primary Care Physician Griselda Pennington Unavailable ALANNA HARDY Admitting Unavailable ALANNA HARDY Attending Unavailable LITA, DR MG Omalley Primary Care Unavailable TERRIE, DR ERWIN Bell Consulting Unavailable ALANNA HARDY [...] CLANCY ., DR AMANDA Fish Attending Unavailable NADERER, DR MG Omalley Primary Care Unavailable LAKSHMIPATHY ., NARENDRANMARY Consulting Lisset vailable LAKSHMIPATHY ., NARENDRANATH Attending [...] HARDY Admitting Unavailable ALANNA HARDY Attending Unavailable NADERER, DR MG A Primary Care Unavailable HIGHLALANNA JARAMILLO Attending Unavailable HIGHLELLA, ALANNA Araiza Admitting Unavailable NADERER, DR MG Omalley Primary Care Unavailable MISC, DR BECKER Attending Unavailable FANATE, SHAIKH Jane Consulting Unavailable MISC, DR BECKER Admitting Unavailable NADERER, DR MG Omalley Primary Care Unavailable BANNER ELK, DR ERWIN Bell Consulting Unavailable ELTAHAWY, DR CAO Admitting Unavailable ELTAHAWY, DR CAO Attending Unavailable NADERER, DR MG Omalley Primary Care Unavailable ELTAHAWY, DR CAO Consulting Unavailable REINECK, DR EDY Da Silva Admitting Unavailabl e NADERER, DR MG Omalley Primary Care Unavailable REINECK, DR EDY Da Silva Consulting Unavailabl e REINECK, DR EDY Da Silva Attending Unavailabl e NEFCY, ALANNA Consulting Unavailable BRITTONOSMAR Admitting Unavailable NADERER, DR MG Omalley Primary [...] Provider Esme Brunson NP Gisele Attending Provider [phone] FABIO Ruby Attending Provider [phone] [facility] MD Demetrius Cooper Primary Care Provider DAISHA Brunson Gisele Attending Provider [phone] Clarissa Corado MD Unavailable Demetrius Cooper MD Primary Care Provider [phone] Flori GARZA, [facility] A. Unavailable [phone] MD Demetrius Cooper Primary Care Provider MD [...] Attending Provider Mary Schneider MD Referring Provider [phone] Dennis Gray MD Attending Provider Mary Schneider MD Referring Provider Talib Faustin MD Attending Provider Demetrius Cooper Admitting Unavailable Demetrius Cooper Attending Unavailable Demetrius Cooper Admitting Unavailable Demetrius Cooper. Attending Unavailable Demetrius Cooper E. Attending Unavailable Al-Talib Hargrove Attending Unavailabl e Jared-Talib Hargroveser Admitting Unavailabl e Mary Schneider Referring Unavailable Demetrius Cooper E Primary Care Unavailable Talib Faustin Admitting Unavailabl e Al-Talib Hargrove Attending Unavailabl e Demetrius Cooper E Primary Care Unavailable Matteo Melo Admitting Unavailable Matteo Melo Attending Unavailable Luc Ham Jr Admitting Unavailable Luc Ham Jr Attending Unavailable Arnie Cooperuel E Primary Care Unavailable Demetrius Cooper E Primary Care Unavailable Debora Wild Attending Unavailable Debora Wild M Admitting Unavailable Hermes Demetrius E Primary Care Unavailable Debora Wild Attending Unavailable Debora Wild M Admitting Unavailable Robina Wildine M Admitting Unavailable Debora Wild Attending Unavailable Hermes Demetrius E Primary Care Unavailable Demetrius Cooper E Primary Care Unavailable Matteo Melo Admitting Unavailable Matteo Melo Attending Unavailable Demetrius Cooper MD Primary Care Provider [phone] Matteo Melo MD Attending Provider Debora Wild APRN Attending Provider Dennis Gray MD Attending Provider Maru Ma DO Attending Provider Mary Schneider MD Referring Provider Talib Faustin MD Attending Provider Dennis Gray MD Attending Provider Pepito Galicia DO Attending Provider [phone] Dennis Gray MD Attending Provider Dennis Gray [...] Care Provider Mary Schneider MD Referring Provider [phone] Talib Faustin MD Attending Provider Maru Hayes MD Emergency Provider Clarissa Corado MD Unavailable Unavailable Demetrius Cooper MD Primary Care Provider [phone] Matteo Melo MD Attending Provider [phone] Mary Schneider MD Referring Provider [phone] Talib Faustin MD Attending Provider [phone] Demetrius Cooper Attending Unavailable Talib Faustin Attending [...] Attending Provider Gisele Brunson NP Attending Provider [phone] Debora Wild APRN Attending Provider Veena Ross DO Attending Provider Talib Faustin MD Attending Provider Mary Schneider MD Referring Provider Dennis Gray MD Attending Provider Inez Henderson Attending Unavaila ble Demetrius Cooper Attending Unavailable Demetrius Cooper Attending Unavailable Demetrius Cooper Attending Unavailable Demetrius Cooper Attending Unavailable Demetrius Cooper Attending Unavailable Demetrius Cooper Admitting Unavailable Demetrius Cooper Attending Unavailable Ross MD, Demetrius E Primary Care Provider Debora Wild APRN Attending Provider Debora Wild APRN Other Provider [phone] Becky Crouch APRN Attending Provider Mary Schneider MD Referring Provider [phone] MARY SCHNEIDER Attending Unavailable ALIYAH MARY Qasim Referring Unavailable [facility] Primary Care Unavailable SCHNEIDER MARY N Admitting Unavailable SCHNEIDER MARY N Attending Unavailable [facility] Primary Care Unavailable SCHNEIDER, MARY N Admitting Unavailable SCHNEIDERMARY MELVIN Attending Unavailable [facility] Primary Care Unavailable SCHNEIDER, MARY N Referring Unavailable [facility] Primary Care Unavailable SCHNEIDERMARY MELVIN Attending Unavailable [facility] Primary Care Unavailable ALIYAH MARY N Referring Unavailable [facility] Primary Care Unavailable MARY SCHNEIDER Attending Unavailable [facility] Primary Care Unavailable ALIYAH MARY Qasim Attending Unavailable [facility] Primary Care Unavailable Josh CASON, Clarissa Unavailable MATTEO AMBROSE Attending Unavailable DENNIS GRAY Referring Unavailable ISABEL ROMANO Attending Unavailable MATTEO AMBROSE Attending Unavailable ITZKOWITZ, VEENA H Attending Unavailable MISSY WESTFALL Attending Unavailable ITZKOWITZ, VEENA H Attending Unavailable TIMMIS, LUC H Attending Unavailable ROSS, DEMETRIUS E Referring Unavailable TIMMIS, LUC H Referring Unavailable LOWMISSY Johnson Attending Unavailable TIMMIS, LUC H Attending Unavailable TIMMIS, LUC H Attending Unavailable TIMMIS, LUC H Attending Unavailable ITZKOWITZ, VEENA H Attending Unavailable GELACIO PAREDES Referring Unava ilable KARLAZCLEMENTINA, VEENA H Attending Unavailable STACEY PATEL Referring Unavailable STACEY PATEL Attending Unavailable STACEY PATEL Referring Unavailable BOY BUITRAGO Attending Unavailable STACEY PATEL Referring Unavailable STACEY PATEL Referring Unavailable STACEY PATEL Attending Unavailable STACEY PATEL Admitting Unavailable BRAYAN, CORIN Referring Unavailable STACEY PATEL Referring Unavailable STACEY PATEL Attending Unavailable STACEY PATEL Referring Unavailable Hermes CASON, Demetrius Johnson Primary Care Provider Mary Schneider MD Referring Provider Talib Faustin MD Attending Provider Matteo Melo Attending Unavailable Matteo Melo Admitting Unavailable Ross, Demetrius E Primary Care Unavailable JunitoRobina baeine M Admitting Unavailable Junito, Debora M Attending Unavailable Ross, Demetrius E Primary Care Unavailable Debora Wild M Attending Unavailable Ross, Demetrius E Primary Care Unavailable Robina Wildine M Admitting Unavailable Maru Hayes Attending Unavailable Maru Hayes Admitting Unavailable Ross, Demetrius E Primary Care Unavailable Zeke Brennan Attending Unavailable Jaiden Nance Admitting Unavailable Yash Thomas Unavailable Ross, Demetrius E Primary Care Unavailable Dennis Gray Attending Unavailable Dennis Gray Admitting Unavailable Ross, Deemtrius E Primary Care Unavailable Ross, Demetrius E [...] Junito Debora M Admitting Unavailable Debora Wild M Attending Unavailable Veena Ross Attending Unavailable Veena Ross Admitting Unavailable Ross, Demetrius E Primary Care Unavailable Mary Schneider MD Referring Provider Talib Faustin MD Attending Provider [phone] Chang Russell MD Attending Provider [phone] Unavailable Unavailable Unavailable Allergies Allergy ClassificationReported Allergen(s)Allergy TypeDate of OnsetReaction(s) Facility (3 sources)DesonideDrug Wljsaru98-92-9447Dtl [facility] Repository (1 source)NiacinDrug Lsvhbac81-94-7900Zyr [facility] Repository (20 sources)Adhesive agent; Translations: [adhesive]D[facility] -85[facility]33[facility] (20 sources)Niacin; Translations: [niacin]Drug Yiqiaio72-72-8518udayb, Itching (finding), Itching, UnknownGeneral [facility] [place] (20 sources)Adhesive bandage; Translations: [Adhesive Bandage]Allergy to substanceEruption of skin (disorder)[facility] [place] (5 sources)NiacinDrug AllergyhivesNort [place] Other (2 sources)Niaspan Starter PackDrug allergy (disorder)10-39-4307Axu [facility] Repository (15 sources)Adhesive Tape-Silicones; Translations: [ADHESIVE TAPE-SILICONES]Drug Lmdboxd99-68-8232HefhQhcmqhktc Clinic (20 sources)NiacinDrug Lhociry91-45-6225Ovezhqj, [facility] (20 sources)Wound Dressing AdhesiveDrug Ifnycmz98-76-1784YchtshlDRWV Healthcare (4 sources)Niacin; Translations: [Niaspan ER][facility]Mar[facility] Rep[facility] (2 sources)NiacinDrug Lkphxhl74-74-6853OkubdwtdnL[facility] Rep[facility] Medications Current Medications MedicationDrug Class(es)DatesSig (Normalized)Sig (Original)acetaminophen 325 mg / butalbital 50 mg / caffeine 40 mg oral capsule (20 sources)Barbiturate, Central Nervous System Stimulant, MethylxanthineStart: 09-68-6313inmi 1 capsule by mouth every four hours for headacheEsgic 325 mg-50 mg-40 mg oral capsule 1 cap(s), Oral, q4hr for headache, 60 cap(s), Refill(s) 1, [id number], 160, cm, 11/29/23 10:29:00 EDT, Height/Length Dosing, 78.5, kg, 11/29/23 10:29:00 EDT, Weight Dosing Start Date: 11/29/23 Status: Ordered Quantity: 60.0 Unit: cap(s) Repeat number: 2Start: 12-15-2022 End: 31-80-1269zyxu 1 tablet by mouth every four hours as needed vcsoqkfufu-fzfzdzhnqczad-nzmv 50-325-40 mg tablet Take 1 tablet by mouth every 4 hours if needed. 12/15/2022 ActiveStart: 75-72-1256PFPB/butalbital/caffeine 325 mg-50 mg-40 mg Tab Refill(s) 0, Headache Start Date: 12/15/22 Status: Ordered Comment on above:Take 1 tablet by mouth every 4 hours as needed.Albuterol (Eqv- ProAir HFA) 90 mcg/inh inhalation aerosol (16 sources)Start: 58-97-6157Jumivthkv (Eqv-ProAir HFA) 90 mcg/inh inhalation aerosol See Instructions, 17 gm, Refill(s) 6, USE 2 INHALATIONS BY MOUTH EVERY 6 HOURS, [facility]), 163, cm, 11/04/22 15:03:00 EDT, Height/Length Dosing, 76, kg, 11/04/22 15:03:00 EDT, Weight Dosing Start Date: 11/09/22Status: Ordered Quantity: 17.0 Unit: g Repeat number: 1Start: 25-84-1605Btzkmmatv (Eqv-ProAir HFA) 90 mcg/inh inhalation aerosol See Instructions, 17 gm, Refill(s) 6, USE 2 INHALATIONS BY MOUTH EVERY 6 HOURS, [facility] ([facility]), 163, cm, 11/04/22 15:03:00 EDT, Height/Length Dosing, 76, kg, 11/04/22 15:03:00 EDT, Weight Dosing Start Date: 11/09/22Status: Ordered{1 (Ascorbic Acid 7540 MG / POLYETHYLENE GLYCOL 3350 36194 MG / Potassium Chloride 1200 MG / SodiumAscorbate 84836 MG / Sodium Chloride 3200 MG Powder for Oral Solution) / 1 (POLYETHYLENE GLYCOL 3350 009538 MG / Potassium Chloride 1000 MG / Sodium Chlori (5 sources)Osmotic Laxative, Vitamin CStart: 91-85-2005Mlopxx oral powder for reconstitution See Instructions, 1 EA, Refill(s) 0, Prior to colonoscopy., [id number], 163, cm, 12/15/22 12:03:00 EDT, Height/Length Dosing, 73.3, kg, 12/16/2311:03:00 EDT, Weight Dosing Start Date: 12/15/22 Status: Ordered Aspir 81 (18 sources)Start: 27-51-0228strd 81 mg by mouth once dailyAspir 81 81 mg, Oral, Daily, Refills(s) 0, Prophylaxis Start Date: 04/24/20 Status: Ordered Repeat nu mber: 1Start: 84-01-1904dknd 81 mg by mouth once dailyAspir 81 81 mg, Oral, Daily, Refills(s) 0, Prophylaxis Start Date: 04/24/20 Status: OrderedStart: 53-25-2179rfhw 1 mg by mouth once dailyAspir 81 mg, Oral, Daily, Refills(s) 0, Prophylaxis Start Date: 04/24/20 Status: OrderedAspir-81 (5 sources)Aspir-81 Activeazithromycin 250 mg oral tablet (4 sources)Macrolide AntimicrobialStart: 47-36-6412Mmasyxdypeay 250 MG 2 tablet on the first day, then 1 tablet daily for 4 days Orally Once a day for5 day(s) September, ActiveButalbital-Acetaminophen (5 sources)Butalbital-Acetaminophen Activecephalexin 250 mg oral capsule (1 source)Cephalosporin AntibacterialStart: 89-20-0724yhwg 1 capsule by mouth twice dailyKeflex 250 mg Cap 250 mg = 1 cap(s), Oral, BID, Start 3 days before procedure, # 10 cap(s), Refills(s) 0, Pharmacy: [id number], 167, cm, 04/27/22 8:46:00 EST, Height/Length Dosing, 87.1, kg, 04/27/22 8:46:00 EST, Weight Dosing Start Date: 04/27/22 Status: Orderedcholestyramine 4 g/5 g Oral Pwdr (1 source)Start: 06-10-9873ivwbbolebgquhm 4 g/5 g Oral Pwdr 1 packet(s), Oral, TID, 90 EA, Refill(s) 0, [facility] ([facility] ), 167.6, cm, 08/24/22 8:10:00 EDT, Height/Length Dosing, 83.4, kg, 08/24/22 8:10:00 EDT, Weight Dosing Start Date: 08/24/22 Status: Orderedsugar-free cholestyramine resin 4000 mg powder for oral suspension (7 sources)Bile Acid SequestrantStart: 16-38-4319xnckmlmilllrzu 4 g/5 g Oral Pwdr 5 gram, 1 EA, Oral, BID, 630 gm, Refill(s) 0, one scoop BID 90 daysupply, [id number], 162, cm, 08/30/23 10:00:00 EDT, Height/Length Dosing, 78.4, kg, 08/30/23 10:00:00 EDT, Weight Dosing Start Date: 09/06/23 Status: OrderedStart: 05-25-2023 End: 88-35-6366eonx 4 g by mouth once dailyQuestran 4 g/9 g oral powder 4 gm, Oral, Daily, X 90 day(s), # 90 packet(s), Refills(s) 0, Pharmacy: [facility] #[id number], 163, cm, 05/25/23 12:33:00 EST, Height/Length Dosing, 79.8, kg, 05/25/23 12:33:00 EST, Weight Dosing Start Date: 05/25/23 Stop Date: 08/23/23 Status: OrderedDicyclomine (3 sources)AnticholinergicDicyclomine HCl Izohoe95 hr fentaNYL 0.012 mg/hr transdermal system (20 sources)Opioid AgonistStart: 33-93-2855rxybuRGD 12 mcg/hr Transderm ER Film 1 patch(es), Topical, q72hr, Refill(s) 0 Start Date: 08/22/24 Status: Ordered Repeat number: 1Start: 08-02-2024 End: 69-21-9710Ucdhryyt 12 mcg/hr patch 72 hour Discontinued 1 PATCH TRANSDERML Every 72 hours 5 15 0 August 16, 2024 September 11, 2024 10:11am 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, unspecified M alignant neoplasm of oropharynx, unspecifiedStart: 06-05-2024 End: 93-88-6685gfcznsvbiqk, Once PRN Procedure, Starting on Wed06/05/24 at 1345, For 1 dose, Intraprocedureferrous sulfate 325 mg oral tablet (2 sources)Start: 86-63-3998evwf 1 tablet by mouth twice dailyFerrous Sulfate (Ferosul) 325 mg (65 mg iron) tablet Active 325 MG PO Twice daily February [id number]:00am Complies with drug therapyFish Oils (7 sources)Start: 49-86-7095Jgigz-3 Fish Oil Oral, Daily, Refills(s) 0, Prophylaxis Start Date: 11/04/22 Status: OrderedStart: 51-61-2401Xrqvx-3 Fish Oil Oral, Daily, Refills(s) 0 Start Date: 11/04/22 Status: Orderedfluticasone 0.05 mg/inh Nasal [place] (1 source)Start: 05-06-0670xbuzjksyjww 0.05 mg/inh Nasal [place] Daily, Refill(s) 0 Start Date: 04/24/20 Status: Orderedgabapentin 600 mg oral tablet (20 sources)Anti-epileptic AgentStart: 47-07-9721save 1 tablet by mouth three times dailygabapentin 600 mg Tab 600 mg, Oral, TID, # 270 EA, Refills(s) 0, Pharmacy: [facility], 163, cm, 02/25/23 13:29:00 EDT, Height/Length Dosing, 78.8, kg, 02/25/23 13:29:00 EDT, Weight Dosing Start Date: 03/09/23 Status: OrderedGabapentin 300 MG Oral for 90 ActiveComment on above:Take 1 tablet by mouth.glimepiride 2 mg oral tablet (6 sources)SulfonylureaStart: 11-44-4076ngdcqetxlpi (AMARYL) 2 mg tablet Take 2 mg by mouth. 01/19/2019 ActiveComment on above:Take 2 mg by mouth. Hc/Dph/Nystat/Lido/Fla Monsalve (1 source)Start: 46-00-8488xgpy 10 mL by mouth four times daily as needed Hc/Dph/Nystat/Lido/[place] Monsalve Hc/Dph/Nystat/Lido/[place] Monsalve, Swish and swallow with 10ml by mouth four times daily as needed FOR mucositis Start Date: 08/22/24 Status: Ordered Repeat number: 1iv contrast (will be provided with radiology test) (3 sources)Start: 53-69-9633ua contrast (will be provided with radiology test) [...] 2 mg oral tablet (20 sources)Opioid AgonistStart: 22-89-9979kzwo 1 tablet by mouth every four hoursloperamide [...] ActivemethylPREDNISolone 4 mg oral tablet (4 sources)CorticosteroidStart: 30-11-3483Xnkchq 4 MG as directed Orally as directed for 6 days September, ActiveMisc Medication (6 sources)Start: 14-13-3723Ysqa Medication Transdermal Therapeutics up to four times per day: Meloxicam 0.5%/ Doxepin 3%/ Amantidine 3%/Dextromethorphan 2%/ Lidocaine 2% Start Date: 11/08/23 Status: Ordered Repeat number: 1Start: 33-74-2487Wbpy Medication Transdermal Therapeutics up to four times [...] morning. ActiveMultivitamin (Multiple Vitamins) tablet (20 sources)Start: 27-82-7167xwqp 1 tablet by mouth once dailyMultivitamin (Multiple Vitamins) tablet Active 1 TAB PO Daily June 14, 2024 1:00am Complies with drug therapyStart: 49-35-5041hzlf 1 tablet by mouth once daily Start: 59-03-2967gppc 1 tablet by mouth once dailyMultivitamin (Multiple Vitamins) tablet Active 1 TAB PO Daily June 14, 2024 1:00amStart: 76-44-2251gfbd 1 tablet by mouth once dailyMultivitamin (Multiple Vitamins) tablet Active 1 TAB PO Daily June 14, 2024 12:00amMultivitamin preparation (5 sources)Multivitamin Activemultivitamin tablet (7 sources)take 1 tablet by mouth once dailymultivitamin tablet Take 1 tablet by mouth once daily. ActiveMultivitamin, Therapeutic w/ Minerals (18 sources)Start: 40-09-5077Alzosnunuggy, Therapeutic w/ Minerals Oral, Daily, Refill(s) 0, Prophylaxis Start Date: 04/24/20 Status: Ordered Repeat number: 1 Start: 94-48-1124Snqgmeywivll, Therapeutic w/ Minerals Oral, Daily, Refill(s) 0, Prophylaxis Start Date: 04/24/20 Status: OrderedOmega 3 (5 sources)Boyle 3 Activeomega-3 acid ethyl esters (care home) 1000 mg oral capsule (20 sources)take 1 capsule by mouth in the morningomega-3 acid ethyl esters (Lovaza) 1 g capsule Take 1 g by mouth in the morning and 1 g before bedtime. Activepantoprazole 20 mg delayed release oral tablet (7 sources)Proton Pump InhibitorStart: 38-05-3053vhgw 1 mg by mouth once daily Pantoprazole [address] Tab mg tab(s), Oral, Daily, Refills(s) 0 Start Date: 10/31/20 Status: OrderedPantoprazole Sodium Not-Taking/PRNPantoprazole Sodium Not-TakingPantoprazole Sodium Activepolyethylene glycol 3350 29653 mg powder for oral solution (9 sources)Osmotic LaxativeStart: 69-84-9101Zhrtwvasqswr Glycol 3350 (Miralax) 17 gram/dose powder Active 17 GM PO Daily 68 4 0 September 20, 2024 12:00am Complies with drug therapyPotassium Chloride (11 sources)Start: 76-50-9657dfgs 1 tablet by mouth twice dailyPotassium Chloride (Flx-Sdim-Eib M20) 20 mEq oral tablet, extended release TAKE 1 TABLET BY MOUTH TWICE DAILY Start Date: 08/30/24 Status: Ordered Repeat number: 1Start: 08-23-2024 End: 27-31-3637Oowtjngyv Chloride (Klor-Con M20) 20 mEq tablet,ER particles/crystals Discontinued 20 MEQ PO Twice daily 20 August 23, 2024 12:00am October 03, 2024 10:25amrimegepant 75 mg disintegrating oral tablet (20 sources)Start: 02-16-2024 End: 95-34-9808Xiysshahxp Sulfate (Nurtec) 75 MG tablet dispersible Indications: Migraine without aura and withoutstatus migrainosus, not intractable 1 tab PO prn migraine. 16 tablet 2 02/16/2024 ActiveSenna Leaves (1 source)Start: 25-85-6581dgzc 1 tablet by mouth twice daily as needed for constipationSenna 8.6 mg oral tablet TAKE 1 TABLET BY MOUTH TWICE DAILY NEEDED FOR CONSTIPATION Start Date: 08/22/24 Status: Ordered Repeat number: 1 Sennosides (Black-Draught Lax-Senna) 8.6 mg tablet (8 sources)Start: 47-89-2498zktt 1 tablet by mouth once daily as needed for constipationSennosides (Black-Draught Lax-Senna) 8.6 mg tablet Active 8.6 MG PO Twice daily as needed for constipation 60 August 02, 2024 12:00am Use if no bowel movement dailysilver sulfADIAZINE 10 mg/ml topical cream (13 sources)Sulfonamide AntibacterialStart: 08-82-0654EBY 1% topical cream 1 lenin, Topical, BID, Refill(s) 0, apply to neck at affected areas Start Date: Status: Ordered Repeat number: 1Start: 08-18-2024 End: 95-06-0597Cumybx Sulfadiazine (Silvadene) 1 % cream Discontinued 1 APPLIC TOPICAL Twice daily 50 0 August 12:00am October 03, 2024 10:25am Squamous cell carcinoma of oropharynx Malignant neoplasm of oropharynx, unspecified Apply to open areas on radiation site, twice a day, until healed.traZODone hydrochloride 50 mg oral tablet (1 source)Serotonin Reuptake InhibitorStart: 39-20-0992mzqm 1 mg by mouth once daily at [...] Central Nervous System Stimulant, MethylxanthineStart: 06-14-2024 End: 22-40-6245ylzt 1 tablet by mouth every four to six hours as needed Lbwcyho-Hjvqbwxzhpaip-Faokjplx (Excedrin Migraine) 250-250-65 mg tablet Discontinued 1 TAB PO EVERY4-6 HOURS as needed July 20, 2024 1:00am July 26, 2024 8:40amacetaminophen 500 mg / diphenhydrAMINE hydrochloride 25 mg oral tablet (20 sources)Histamine-1 Receptor AntagonistStart: 06-14-2024 End: 27-39-3136fasu 2 tablets by mouth once daily at bedtime as needed Diphenhydramine-Acetaminophen (Tylenol Pm Extra Strength) 25-500 mg tablet Discontinued 2 TAB PO Daily at bedtime as needed July 20, 2024 1:00am July 26, 2024 8:40amStart: 91-20-6777oinh 1 tablet by mouth once daily at [...] oral tablet (20 sources)Opioid AgonistStart: 07-20-2024 End: 22-11-2226xffd 1 tablet by mouth twice daily as neededHydrocodone- Acetaminophen 5-325 mg tablet Discontinued 1 TAB PO Twice daily as needed 0 July 20, 2024 1:00am July 26, 2024 8:41amStart: 07-17-2024 End: 20-09-9326udln 1 tablet by mouth every twelve hours as needed for pain Hydrocodone-Acetaminophen 5-325 mg tablet Discontinued 1 TAB PO Every 12 hours as needed for pain 42 0 July 17, 2024 August 09, 2024 9:43am Other acute postprocedural pain Other acute postprocedural kpiw391 actuat albuterol 0.09 mg/actuat dry powder inhaler (20 sources)beta2-Adrenergic AgonistStart: 06-14-2024 End: 64-81-6629Hlqxshoez Sulfate 90 mcg/actuation aerosol powdr breath activated Discontinued 1 INH INHALATION EVERY 4-6 HOURS as needed July 20, 2024 1:00am July 26, 2024 8:39amamLODIPine 5 mg oral tablet (20 sources)Dihydropyridine Calcium Channel BlockerStart: 04-24-2020 End: 48-48-8208kmsz 1 tablet by mouth once dailyAmlodipine 5 mg tablet Discontinued 5 MG PO Daily July 20, 2024 1:00am July 26, 2024 8:39amComment on above:Take 5 mg by mouth.aspirin 81 mg chewable tablet (20 sources)Platelet Aggregation Inhibitor, Nonsteroidal Anti-inflammatory Drug Start: 06-14-2024 End: 06-65-7696wzwf 1 tablet by mouth once dailyAspirin 81 mg tablet,chewable Discontinued 81 MG PO Daily July 20, 2024 1:00am July 26, 2024 8:39amtake 1 tablet by mouth once dailyaspirin 81 MG EC tablet Take 81 mg by mouth Daily ActiveComment on above:Take 81 mg by mouth.cefpodoxime 200 mg oral tablet (11 sources)Cephalosporin AntibacterialStart: 08-21-2024 End: 96-70-5140ctck 1 tablet by mouth twice daily at mealtimeCefpodoxime 200 mg tablet Discontinued 200 MG PO Twice daily 6 3 0 August 21, 2024 12:00am October 03, 2024 10:22am must administer with a meal/foodclopidogrel 75 mg oral tablet (20 sources)P2Y12 Platelet InhibitorStart: 04-24-2020 End: 20-20-7251kydh 1 tablet by mouth once dailyClopidogrel (Plavix) 75 mg tablet Discontinued 75 MG PO Daily July 20, 2024 1:00am July 26, 2024 8:40amclotrimazole 10 mg oral lozenge (14 sources)Azole AntifungalStart: 08-03-2024 End: 64-57-2467Wmvikdciwghr 10 mg joyce Discontinued 10 MG MUCOUS MEM Five times daily 70 14 0 August 03, 2024 12:00am August 17, 2024 11:32am Candidiasis of mouth Candidal stomatitis thrush use for 10 days, if symptoms persist, then complete the 14 days dispenseddexamethasone 6 mg oral tablet (6 sources)CorticosteroidStart: 05-13-0235nsyz 1 tablet by mouth every twenty- four hoursdexAMETHasone 6 MG 1 tablet Orally Once a day for 5 day(s) Nov, Not-Taking/PRNDocusate (5 sources)Docusate Sodium Not-Taking/PRNDocusate Sodium Not-TakingDocusate Sodium Activedorzolamide 20 mg/ml ophthalmic solution (20 sources)Carbonic Anhydrase InhibitorStart: 07-20-2024 End: 95-38-3680qsdm 1 drop(s) into the eye(s) three times dailyDorzolamide 2 % drops Discontinued 1 DROPS EYE-BOTH Three times daily July 20, 2024 1:00am July 26, 2024 8:40amStart: 07-20-2024 End: 19-46-2756cqlc 1 drop(s) into the eye(s) three times dailyDorzolamide 2 % drops Discontinued 1 DROPS EYE-BOTH Three times daily July 20, 2024 1:00am July 26, 2024 8:40amStart: 71-98-6689irje 1 drop(s) into the eye(s) three times dailydorzolamide (Trusopt) 2 % ophthalmic solution Administer 1 drop into both eyes 3 times a day. 07/27/2023 ActiveStart: 64-88-9033kskl 1 drop(s) into the eye(s) twice dailyDorzolamide 2 % drops Active 1 DROPS OPHTHALMIC Twice daily July 27, 2023 12:00am Complies with drug therapyStart: 07-27-2023 Dorzolamide 2 % drops Active DROPS OPHTHALMIC July 26, 2023 11:00pmStart: 76-83-6583Aypqgspkydc Active DROPS OPHTHALMIC July 27, 2023 12:00amStart: 24-13-7714ckjt 1 drop(s) into the eye(s) twice dailydorzolamide ophthalmic 2% solution 1 drop(s), OPTH, BID, Refill(s) 0, each eye Start Date: 04/24/20 Status: Ordered Repeat number: 1Start: 12-89-3751gddf 1 drop(s) into the eye(s) twice dailydorzolamide ophthalmic 2% solution 1 drop(s), OPTH, BID, Refill(s) 0, each eye Start Date: 04/24/20 Status: Orderedtake 1 drop(s) into the eye(s) in the morning, then take 1 drop(s) into the eye(s) in the evening, then take 1 drop(s) into the eye(s) at bedtimedorzolamide (Trusopt) 2 % ophthalmic solution 1 drop in the morning and 1 drop in the evening and 1drop before bedtime. Active Dorzolamide HCl 2 % Ophthalmic for 90 ActiveDorzolamide HCl 2 % Ophthalmic for 90 ActiveDorzolamide HCl 2 % Ophthalmic for 90 Activedoxycycline monohydrate 100 mg oral capsule (20 sources)Tetracycline-class DrugStart: 07-12-2024 End: 50-19-2061pcse 1 capsule by mouth twice dailyDoxycycline Monohydrate 100 mg capsule Discontinued 100 MG PO Twice daily July 20, 2024 1:00am July 26, 2024 8:40amfamotidine 20 mg oral tablet (20 sources)Histamine-2 Receptor AntagonistStart: 07-27-2023 End: 14-13-9604ekci 1 tablet by mouth once dailyFamotidine 20 mg tablet Discontinued 20 MG PO Daily July 20, 2024 1:00am July 26, 2024 8:41am fluticasone propionate 0.05 mg/actuat metered dose nasal spray (20 sources)CorticosteroidStart: 00-58-2391blkmssnjdmf Nasal 0.05 mg/inh [place] See Instructions, 16 gm, Refill(s) 0, USE 1 SPRAY IN BOTH NOSTRILS TWICE DAILY, [facility], 160, cm, 01/10/24 9:43:00 EDT, Height/Length Dosing, 77.8, kg, 01/10/24 9:43:00 EDT, Weight Dosing Start Date: 01/18/24 Status: Ordered Quantity: 16.0 Unit: g Repeatnumber: 1Start: 08-24-2022 End: 49-51-2028nglz 1 spray(s) nasal route once dailyFluticasone Propionate 50 mcg/actuation spray,suspension Discontinued 2 SPRAY INTRANASAL Daily July 20, 2024 1:00am July 26, 2024 8:41am administer into each nostrilStart: 74-65-5662gelawgvuweu (FLONASE) 50 mcg/actuation nasal spray 1 [place]. 08/24/2022 ActiveStart: 30-12-1769luir 1 spray(s) nasal route twice dailyFlonase 0.05 mg/inh [place] 1 spray(s), Nasal, BID, 16 gram, Refill(s) 0, each nostril, [facility] ([facility] ), 167.6, cm, 08/24/22 8:10:00 EDT, Height/Length Dosing, 83.4, kg, 08/24/22 8:10:00 EDT, Weight Dosing Start Date: 08/24/22 Status: OrderedStart: 48-64-5885Pijti: 39-85-6657cmky 50 ug by inhalation twice dailyfluticasone propionate [...] MCG/ACT Nasal for 30 ActiveComment on above:1 [place].furosemide 20 mg oral tablet (20 sources)Loop DiureticStart: 04-24-2020 End: 00-32-6814norf 1 tablet by mouth once daily in the morningFurosemide 20 mg tablet Discontinued 20 MG PO Every morning July 20, 2024 1:00am July 2658:41amFurosemide ActiveComment on above:Take 20 mg by mouth.irbesartan 300 mg oral tablet (20 sources)Angiotensin 2 Receptor BlockerStart: 04-24-2020 End: 92-38-6414tecg 1 tablet by mouth once daily in the morningIrbesartan 300 mg tablet Discontinued 300 MG PO Every morning July 20, 2024 1:00am July 26, 2024 8:41amComment on above:Take 300 mg by mouth.24 hr isosorbide mononitrate 30 mg extended release oral tablet (20 sources)Nitrate VasodilatorStart: 23-95-9100rvkx 1 tablet by mouth every twenty-four hoursIsosorbide Mononitrate 30 mg tablet extended release 24 hr Active MG PO July 26, 2023 11:00pmStart: 04-24-2020 End: 68-87-7952gwfj 1 tablet by mouth once daily in the morning, then take 1 tablet by mouth every twenty-four hoursIsosorbide Mononitrate 30 mg tablet extended release 24 hr Discontinued 30 MG PO Every morning July 27, 2023 12:00am July 26, 2024 8:42amComment on above:Take 30 mg by mouth.lactulose 667 mg/ml oral solution (15 sources)Osmotic LaxativeStart: 08-02-2024 End: 55-68-1269toqi 10 g by mouth once daily for constipationLactulose 10 gram/15 mL solution Discontinued 10 GM PO Daily as needed for constipation 450 30 0 August 02, 2024 12:00am August 20, 2024 6:06pm Constipation Constipation, unspecified use everyday until you have a bowel movement daily.Start: 08-02-2024 End: 14-46-3554jovy 10 g by mouth once daily for constipationLactulose 10 gram/15 mL solution Discontinued 10 GM PO Daily as needed for constipation 450 30 August 02, 2024 12:00am August 20, 2024 6:06pm use everyday until you have a bowel movement daily.Start: 33-29-9600siba 10 g by mouth once daily for constipationLactulose 10 gram/15 mL solution Active 10 GM PO Daily as needed for constipation 450 30 August 02, 2024 12:00am use everyday until you have a bowel movement daily.latanoprost 0.05 mg/ml ophthalmic solution (20 sources)Prostaglandin AnalogStart: 07-20-2024 End: 17-93-9154wcjm 1 drop(s) into the eye(s) once daily in the evening Latanoprost 0.005 % drops Discontinued 1 DROPS EYE-BOTH Every evening July 20, 2024 1:00am July 26, 2024 8:42amStart: 84-47-3505drdy 1 drop(s) into the eye(s) once dailyLatanoprost Active DROPS OPHTHALMIC Daily July 27, 2023 12:00amStart: 01-59-9499hdexmvagczh Opth 0.005% Janee Refill(s) 0, 10 mL, 0 Refill(s) Start Date: 05/19/23 Status: Ordered Repeat number: 1Start: 05-19-2023 End: 56-36-0783cfnr 1 drop(s) into the eye(s) once daily in the evening Latanoprost 0.005 % drops Discontinued 1 DROPS EYE-BOTH Every evening July 20, 2024 1:00am July 26, 2024 8:42amStart: 83-78-8178okemjlqsixo (Xalatan) 0.005 % ophthalmic solution Administer 1 drop into both eyes. 05/19/2023 ActiveStart: 27-47-5318tbhjqkzrxxm ophthalmic qPM, Refill(s) 0, Dry eyes Start Date: 04/24/20 Status: OrderedStart: 48-45-5423yxpbrthttwb ophthalmic qPM, Refill(s) 0 Start Date: 04/24/20 [...] (20 sources)Antiarrhythmic, Amide Local AnestheticStart: 07-20-2024 End: 10-00-9985Wuqsazcvo-Prilocaine 2.5-2.5 % cream Discontinued 2 GM TOPICAL as needed July 20, 2024 1:00am July 26, 2024 8:42amStart: 07-13-2024 End: 12-79-4274Lwmprgstc-Prilocaine 2.5-2.5 % cream Discontinued 2 GM TOPICAL Once as needed for pain 30 2 July 13, 2024 2:08pm October 03, 2024 10:23am Apply 1 hour prior to accessing port.Magic Mouthwash W/Lidocaine 240 Ml Bottle 240 mL bottle (20 sources)Start: 08-23-2024 End: 13-20-7332ojwb 10 mL by mouth four times daily as neededMagic Mouthwash W/Lidocaine 240 Ml Bottle 240 mL bottle Discontinued 10 ML PO Four times daily as needed for mucositis 240 August 23, 2024 10:14am October 03, 2024 10:23am Squamous cell carcinoma of oropharynx Malignant neoplasm of oropharynx, unspecified Take 10ml by mouth, four times a day, as needed. [employer]. will call when they need refillStart: 08-23-2024 End: 55-81-7163yivu 10 mL by mouth four times daily as neededMagic Mouthwash W/Lidocaine 240 Ml Bottle 240 mL bottle Discontinued 10 ML PO Four times daily as needed for mucositis 240 August 23, 2024 10:14am October 03, 2024 10:23am Take 10ml by mouth, four times a day, as needed. [employer]. will call when they need refillStart: 94-83-9823fkee 10 mL by mouth four times daily as needed Magic Mouthwash W/Lidocaine 240 Ml Bottle 240 mL bottle Active 10 ML PO Four times daily as needed for mucositis 240 August 23, 2024 10:14am Take 10ml by mouth, four times a day, as needed. SW[employer]. will call when they need refillStart: 07-20-2024 End: 32-88-1071fldz 1 mL by mouth four times daily as neededMagic Mouthwash W/Lidocaine 240 Ml Bottle 240 mL bottle Discontinued ML PO Four times daily as needed 240 July 20, 2024 1:00am July 26, 2024 8:42amStart: 07-19-2024 End: 29-91-4643chuf 10 mL by mouth four times daily as neededMagic Mouthwash W/Lidocaine 240 Ml Bottle 240 mL bottle Discontinued 10 ML PO Four times daily as needed for mucositis July 19, 2024 1:00am August 20, 2024 6:07pm Squamous cell carcinoma of oropharynx Malignant neoplasm of oropharynx, unspecified Take 10ml by mouth, four times a day as needed. [employer]. Start: 07-19-2024 End: 26-90-9146ucyt 10 mL by mouth four times daily [...] as needed. [employer].Start: 07-06-2024 End: 07-07-4015sxhq 10 mL by mouth four times daily as neededMagic Mouthwash W/Lidocaine 240 Ml Bottle 240 mL bottle Discontinued 10 ML PO Four times daily as needed for mucositis 240 0 July 06, 2024 1:00am August 23, 2024 10:15am Squamous cell carcinomaof oropharynx Malignant neoplasm of oropharynx, unspecified Take 10ml by mouth, four times a day, as needed. [employer]. Start: 07-06-2024 End: 16-08-3033blga 10 mL by mouth four times daily as neededMagic Mouthwash W/Lidocaine 240 Ml Bottle 240 mL bottle Discontinued 10 ML PO Four times daily as needed for mucositis 240 July 06, 2024 1:00am August 23, 2024 10:15am Take 10ml by mouth, four times a day, as needed. [employer] SW[employer].Start: 76-70-6174wfmc 10 mL by mouth four times daily as neededMagic Mouthwash W/Lidocaine 240 Ml Bottle 240 mL bottle Active 10 ML PO Four times daily as needed for mucositis 240 July 06, 2024 1:00am Take 10ml by mouth, four times a day, as needed. SW[employer] SWALLOW.Start: 94-12-1876qkfv 10 mL by mouth four times daily as neededMagic Mouthwash W/Lidocaine 240 Ml Bottle 240 mL bottle Active 10 ML PO Four times daily as needed for mucositis 240 July 06, 2024 12:00am Take 10ml by mouth, four times a day, as needed. [employer]ALL[employer].metFORMIN hydrochloride 500 mg oral tablet (20 sources)BiguanideStart: 50-75-5087qvoc 1 tablet by mouth twice daily metFORMIN XR (Glucophage-XR) 500 MG 24 hr tablet Indications: Type 2 diabetes mellitus with hyperglycemia, without long-term current use of insulin ([facility]) TAKE 1 TABLET BY MOUTH TWICE DAILY 200 tablet2 05/01/2024 ActiveStart: 05-31-2023 End: 65-75-0269eobb 1 tablet by mouth once daily in the morningMetformin 500 mg tablet Discontinued 500 MG PO Every morning July 20, 2024 1:00am July 26, 2024 8:43amStart: 15-71-3306twev 1 tablet by mouth twice dailymetFORMIN XR (Glucophage-XR) 500 MG 24 hr tablet Indications: Type 2 diabetes mellitus with hyperglycemia, without long-term current use of insulin ([facility]) TAKE 1 TABLET BY MOUTH TWICE DAILY 180 tablet 3 05/18/2023 ActiveStart: 04-08-5361hdlh 1 mg by mouth twice dailymetformin 500 mg ER Tab mg tab(s), Oral, BID, Refills(s) 0, High blood sugar Start Date: 04/24/20 Status: Orderedtake 1 tablet by mouth once dailymetFORMIN XR 500 mg 24 hr tablet Take 1 tablet (500 mg) by mouth once daily. ActiveComment on above:Take 500 mg by mouth.5 ml midazolam 1 mg/ml injection (1 source)BenzodiazepineStart: 06-05-2024 End: 96-50-7865ftcbosllonz, Once PRN Procedure, Starting on Wed06/05/24 at 1345, For 1 dose, Intraproceduremometasone furoate 1 mg/ml topical cream (20 sources)CorticosteroidStart: 06-14-2024 End: 08-35-6473Zyliaxkhqz 0.1 % cream Discontinued 1 APPLIC TOPICAL Daily July 20, 2024 1:00am July 26, 2024 8:43amMultivitamin (One Daily Multivitamin) tablet (16 sources)Start: 07-20-2024 End: 17-77-8830npdn 1 tablet by mouth once dailyMultivitamin (One Daily Multivitamin) tablet Discontinued 1 TAB PO Daily July 20, 2024 1:00am July 26, 2024 8:43amnystatin 345309 unt oral tablet (20 sources)Polyene AntifungalStart: 08-17-2024 End: 15-51-6034lcvj 1 tablet by mouth four times dailyNystatin 500,000 unit tablet Discontinued 838718 UNIT PO Four times daily 40 10 1 September 14, 2024 9:24am November 23, 2024 10:01amStart: 08-02-2024 End: 28-33-7044Rqkjtbra 100,000 unit/mL suspension Discontinued 794261 UNIT PO Four times daily 224 14 0 August 02, 2024 12:00am August 20, 2024 6:07pm Candidiasis of mouth Candidal stomatitis oral thrush administer 1/2 of dose in each side of the mouthNystatin 100,000 unit/mL suspension (8 sources)Start: 08-02-2024 End: 03-54-9524Mibchopm 100,000 unit/mL suspension Discontinued 931404 UNIT PO Four times daily 224 14 July 19th,2025 12:00am August 20, 2024 6:07pm administer 1/2 of dose in each side of the mouthStart: 39-07-5316Xdletlfm 100,000 unit/mL suspension Active 035869 UNIT PO Four times daily 224 August 02, 2024 12:00am administer 1/2 of dose in each side of the mouthOLANZapine 2.5 mg oral tablet (20 sources)Atypical AntipsychoticStart: 08-09-2024 End: 87-87-4983swid 1 tablet by mouth twice dailyOlanzapine 2.5 mg tablet Discontinued 2.5 MG PO Twice daily 15 06August 09, 2024 12:00am November 23, 2024 10:02amtake 2 tablets by mouth at bedtimeOLANZapine (ZyPREXA) 2.5 MG tablet Take 5 mg by mouth at bedtime Activeomeprazole 40 mg delayed release oral capsule (20 sources)Proton Pump InhibitorStart: 08-24-2022 End: 11-27-1207cfsq 1 capsule by mouth once daily in the morningOmeprazole 40 mg capsule,delayed release(DR/EC) Discontinued 40 MG PO Every morning July 2051:00am July 26, 2024 8:43amStart: 72-50-6564cgsrjpmoai Oral, Daily, Refills(s) 0 Start Date: 04/27/22 Status: OrderedOmeprazole ActiveComment on above:Take 40 mg by mouth.ondansetron 4 mg disintegrating oral tablet (20 sources)Serotonin-3 Receptor AntagonistStart: 07-20-2024 End: 35-96-2611rwnq 2 tablets by mouth every eight hoursOndansetron 4 mg tablet,disintegrating Discontinued 8 MG PO Every 8 hours July 20, 2024 1:00am July 26, 2024 8:43amStart: 05-15-4539ipie 1 tablet by mouth every eight hours as needed for nausea and vomitingOndansetron 8 mg tablet,disintegrating Active 8 MG PO Every 8 hours as needed for nausea and vomiting June 14, 2024 1:00am Complies with drug therapyoxyCODONE hydrochloride 1 mg/ml oral solution (20 sources)Opioid AgonistStart: 62-70-6961wmro 7.5 mg by mouth every eight hours as needed for painoxycodone 5 mg/5 mL oral solution take 7.5 mg q 8 hrs as needed for pain, Refills(s) 0 Start Date: 08/22/24 Status: Ordered Repeat number: 1Start: 07-20-2024 End: 75-52-5757yvns 10 mg by mouth every four hours as needed for painOxycodone 5 mg/5 mL solution Discontinued 10 MG PO Every 4 hours as needed for pain 750 15 0 August 16, 2024 September 21, 2024 3:02pm Neoplasm related pain 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) Malignant neoplasm of oropharynx, unspecifiedStart: 07-19-2024 End: 80-72-3284kuah 5 mg by mouth every four to six hours as neededOxycodone 5 mg/5 mL solution Discontinued 5 MG PO EVERY 4-6 HOURS as needed 0 July 20, 2024 1:00am July 26, 2024 8:44amStart: 05-11-2024 End: 81-02-8648ppqv 1 tablet by mouth every six hours [...] mg oral tablet (20 sources)PhenothiazineStart: 06-14-2024 End: 94-30-8020znwg 1 tablet by mouth every eight hours as needed Prochlorperazine Maleate (Compazine) 10 mg tablet Discontinued 10 MG PO Every 8 hours as needed July 20, 2024 1:00am July 26, 2024 8:44ampsyllium 400 mg oral capsule (20 sources)Start: 03-10-2023 End: 86-41-0567jeyo 3 capsules by mouth once dailypsyllium (Metamucil) 3.4 gram packet Take 3 capsules by mouth once daily. 03/10/2023 12/13/2024 Discontinued (Med List Cleanup)Start: 03-10-2023 End: 79-57-3088Rxghnath Husk (Fiber (Psyllium Husk)) 0.4 gram capsule Discontinued 0.4 GM PO Daily July 20:00am July 26, 2024 8:44amStart: 10-59-2054pbqf 3 capsules by mouth once dailypsyllium (Metamucil 3 in 1 Daily Fiber) 400 MG capsule Take 3 capsules by mouth Daily 03/10/2023 ActiveStart: 25-33-1250Emeqmdocv Refills(s) 0, Constipation Start Date: 03/10/23 Status: OrderedStart: 87-06-1043Fzbdmfroh Refills(s) 0 Start Date: 03/10/23 Status: OrderedPsyllium Husk (Fiber (Psyllium Husk)) 0.4 gram capsule (20 sources)Start: 07-20-2024 End: 46-14-7177Kwhsmajt Husk (Fiber (Psyllium Husk)) 0.4 gram capsule Discontinued 0.4 GM PO Daily July 20:00am July 26, 2024 8:44amStart: 06-22-2024 End: 83-72-2985Okekutdm Husk (Fiber (Psyllium Husk)) 0.4 gram capsule Discontinued 0.4 GM PO Daily June 22, 2024 1:00am August 20, 2024 6:08pm Start: 19-72-7749Abxvvlok Husk (Fiber (Psyllium Husk)) 0.4 gram capsule Active 0.4 GM PO Daily June 22, 2024 1:00amStart: 85-71-1361Ozzoyitf Husk (Fiber (Psyllium Husk)) 0.4 gram capsule Active 0.4 GM PO Daily June 22, 2024 12: 00amrosuvastatin calcium 10 mg oral tablet (20 sources)HMG-CoA Reductase InhibitorStart: 04-24-2020 End: 63-42-0187mwle 1 tablet by mouth once daily in the eveningRosuvastatin 10 mg tablet Discontinued 10 MG PO Every evening July 20, 2024 1:00am July 26, 2024 8:44amCrestor ActiveComment on above:Take 10 mg by mouth.sennosides, care home 8.6 mg oral tablet (8 sources)Start: 08-02-2024 End: 53-74-2577mcth 1 tablet by mouth once daily as needed for constipation Sennosides (Black-Draught Lax-Senna) 8.6 mg tablet Discontinued 8.6 MG PO Twice daily as needed forconstipation 60 30 3 August 02, 2024 12:00am November 23, 2024 10:02am Constipation Constipation, unspecified Use if no bowel movement daily Start: 05-11-2024 End: 55-09-5670knmx 1 tablet by mouth once dailysennosides (Senokot) 8.6 mg tablet Indications: Acute postoperative pain Take 1 tablet (8.6 mg) by mouth once daily for 2 days. 2 tablet 05/11/2024 05/13/2024 Activesotalol hydrochloride 80 mg oral tablet (20 sources)AntiarrhythmicStart: 38-47-1529ewzqbix (Betapace) 80 mg tablet Take 1 half tablet by mouth 2 times a day. 07/27/2023 ActiveStart: 07-27-2023 End: 97-94-4418Nawlvui 80 mg tablet Discontinued 40 MG PO Twice daily July 20, 2024 1:00am July 26, 2024 8:44amStart: 67-45-6962nhyy 1 tablet by mouth once dailySotalol 80 mg tablet Active 80 MG PO Daily July 26, 2023 11:00pmStart: 75-76-3850duvx 0.5 tablet by mouth twice dailysotalol (Betapace) 80 mg tablet Take 0.5 tablets (40 mg) by mouth 2 times a day. 07/27/2023 ActiveComment on above:Take 80 mg by mouth.sucralfate 100 mg/ml oral suspension (20 sources)Aluminum ComplexStart: 09-14-2024 End: 47-76-9184jvtz 1 mL by mouth three times dailySucralfate 100 mg/mL suspension Discontinued 10 ML PO Three times daily 450 15 1 September 14, 2024 12:00 am October 03, 2024 10:26amStart: 01-70-9455fxfyaicfho (CARAFATE) 1 gram tablet Take 1 g by mouth. 12/15/2022 ActiveStart: 96-41-8585rllygelyjb 1 g Tab Refills(s) 0, Control of stomach acid Start Date: 12/15/22 Status: OrderedStart: 06-28-8834wqktpzrzms 1 g Tab gm tab(s), Oral, QIDACHS, Refills(s) 0 Start Date: 04/27/22 Status: OrderedSucralfate Not-Taking/PRNSucralfate Not-TakingSucralfate ActiveComment on above:Take 1 g by mouth.temazepam 15 mg oral capsule (6 sources)Benzodiazepinetake 1 capsule by mouth every twenty-four hours Temazepam 15 MG 1 capsule at bedtime as needed Orally Once a day Not-Taking/PRN tiZANidine 4 mg oral capsule (20 sources)Central alpha-2 Adrenergic AgonistStart: 07-20-2024 End: 26-86-2193atls 1 capsule by mouth once daily in the evening as needed Tizanidine 4 mg capsule Discontinued 4 MG PO Every evening as needed July 20, 2024 1:00am July 26, 2024 8:45amStart: 02-21-2021 End: 53-60-2723eqvd 1 tablet by mouth once daily in the eveningTizanidine 4 mg tablet Discontinued 4 MG PO Every evening July 27, 2023 12:00am November 29, 2024 11:34am End: 18-71-0916dyRAVfvzsa HCl (ZANAFLEX) 4 mg capsule Take 4 mg by mouth. Active tiZANidine HCl ActiveComment on above:Take 4 mg by mouth.zonisamide 25 mg oral capsule (20 sources)Anti-epileptic AgentStart: 09-67-7089Hkgbcijelm Active MG PO July 27, 2023 12:00amStart: 02-15-2023 End: 72-82-7376hyza 1 capsule by mouth twice dailyZonisamide 25 mg capsule Discontinued 25 MG PO Twice daily July 20, 2024 1:00am July 26, 2024 8:45am Problems Active Problems Problem ClassificationProblemDateDocumented DateEpisodic/ChronicAbdominal pain (20 sources)Lower abdominal pain; Translations: [Right flank pain]Onset: 04-03-2022 Resolved: [id number]; peripheral; and visceral artery aneurysms (20 sources)Ectasia of thoracic aorta; Translations: [Thoracic aortic ectasia] Onset: 050945-72-6064VbenxcvVednyrf on above:added per 11/05/2023 query response.Cancer of head and neck (20 sources)Malignant tumor of floor of mouth; Translations: [Malignant neoplasm of floor of mouth, unspecified]Onset: 038765-99-6789RkbkhpsQxiiki of prostate (20 sources)Malignant tumor of prostate; Translations: [Malignant neoplasm of prostate]Onset: 196860-06-2282LrpnbthJigmwd; other and unspecified primary (2 sources)History of malignant neoplasm of head and/or neck; Translations: [Personal history of malignant neoplasm of other organs and systems]09-11-2024 EpisodicCancer; other and unspecified primary (2 sources)Personal history of malignant neoplasm of other organs and systems; Translations: [Personal historyof malignant neoplasm of other organs and systems]Onset: 98-90-1432McpddnwjOjgvcdt dysrhythmias (20 sources)Ventricular tachycardia; Translations: [Ventricular tachycardia] Onset: [id number]duv of device; implant or graft (7 sources)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; Translations: [Atherosclerosis of coronary artery bypass graft(s) without angina pectoris]Onset: 840732-10-6990RftzeyoZtfrfwywug associated with dizziness or vertigo (4 sources)Vertigo; Translations: [Dizziness and giddiness]04-03-1695Gzuishaq Conduction disorders (20 sources)Cardiac pacemaker in situ; Translations: [Presence of cardiac pacemaker]Onset: 040974-76-3382XqqfbrzTmhlpkag atherosclerosis and other heart disease (20 sources)Coronary arteriosclerosis; Translations: [Atherosclerotic heart disease of [place] coronary artery without angina pectoris]Onset: 01-20-2019 ChronicComment on above:noted in 11/10/2022 Cardiology Consult Note page 11. added per [facility] policy.Diabetes mellitus with complications (20 sources)Neuropathy due to diabetes mellitus; Translations: [Autonomic neuropathy due to type 2 diabetes mellitus]Onset: [id number] Diabetes mellitus without complication (20 sources)Diabetes mellitus; Translations: [Type 2 diabetes mellitus without complication]Onset: [id number] on above:linked DM with HLD per [facility] policy.Disorders of lipid metabolism (20 sources)Hypercholesterolemia; Translations: [Pure hypercholesterolemia, unspecified]Onset: 835107-76-4887YvxhhwxDwfxrktae of teeth and jaw (2 sources)Ulceration of gingivae; Translations: [Other specified disorders of gingiva and edentulous alveolarridge]82-26-8080EwyufsiuBxzygxefculhgv and diverticulitis (20 sources)Diverticular disease; Translations: [Diverticulosis of intestine, part unspecified, without perforation or abscess without bleeding]Onset: [id number] disorders (20 sources)Gastroesophageal reflux disease with apnea; Translations: [Gastro- esophageal reflux disease withoutesophagitis]Onset: 726626-82-0787Fcqogwt Essential hypertension (20 sources)Hypertensive disorder; Translations: [Essential hypertension]Onset: 882036-24-2649ItzmnyyDhyih of unknown origin (17 sources)Fever; Translations: [Fever, unspecified]67-20-7707Gbvoavyy Genitourinary symptoms and ill-defined conditions (1 source)Delay when starting to pass iurqw40-99-7118WeswdvtbZiczkbjd (20 sources)Glaucoma; Translations: [Unspecified glaucoma]Onset: 04-03-2022 41-30-7807FeyciyiQzhqtoaj; including migraine (20 sources)Migraine; Translations: [Migraine, unspecified, not intractable, without status migrainosus]Onset: 927277-86-8332NwiijsdZdenu valve disorders (20 sources)Aortic valve regurgitation; Translations: [Nonrheumatic aortic (valve) insufficiency]Onset: 086436-10-9997MaoavkwZuzlizbv disorders (19 sources)Immunosuppression; Translations: [Immunodeficiency, unspecified] Onset: 074818-42-4413PmuabrqHirwzth on above:noted in 08/20/2024 [facility] ED Note page 5. added per OP CDI policy.Joint disorders and dislocations; trauma-related (20 sources)Derangement of right knee; Translations: [Unspecified internal derangement of right knee]Onset: 283082-42-2555DqwahhfCpakvio (20 sources)Onychomycosis; Translations: [Tinea unguium]Onset: 01-27-2024 Resolved: 317262-43-5307KxkqhcstWcsbcq and vomiting (20 sources)Nausea; Translations: [Nausea]Onset: 548455-75-1013Tsktqnks Comment on above:noted in 08/16/2024 Palliative Care Consult Note page 5. added per OP CDI policy.Neoplasms of unspecified nature or uncertain behavior (4 sources)Benign neoplasm of pancreas; Translations: [Neoplasm of unspecified behavior of digestive system]00-47-4684XaeezsciBsdqtmrphsg deficiencies (20 sources)Vitamin D deficiency; Translations: [Vitamin D deficiency, unspecified]Onset: 618316-86-2187KyewucmYqplrkjwgrcqur (20 sources)Osteoarthritis; Translations: [Arthritis of right ankle]Onset: 287518-23-5024UoxfguoRrobm aftercare (1 source)Other fci (current) drug therapy; Translations: [OTH [facility] CURRENT DRUG THERAPY]Onset: 74-84-1765XkqcnsgcZohlj aftercare (1 source)intermediate (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; Translations: [[facility] CURRENT USE OF ASPIRIN]Onset: 20-17-7735TdfvkfraNovao aftercare (1 source)intermediate (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 of antithrombotics/antiplatelets; Translations: [[employer]ER ANTITHROMBOT/ANTIPLATLETS]Onset: 64-03-4140Fposydih Other aftercare (1 source)intermediate (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 of oral hypoglycemic drugs; Translations: [[facility] USE ORAL HYPOGLYCEMIC DX]Onset: 67-35-2483TuiwlhwcWuvcr aftercare (20 sources)Patient encounter status; Translations: [Encounter for palliative care]20-55-8431WncgtxysHdmhh bone disease and musculoskeletal deformities (20 sources)Osteochondritis dissecans of right ankle; Translations: [Osteochondritis dissecans, right ankle andjoints of right foot]Onset: 608837-50-4552OmdogqpBjasn circulatory disease (1 source)Raynaud's syndrome without gangrene; Translations: [RAYNAUDS SYNDROME WITHOUT GANGRENE]Onset: 46-60-1525JthsbnlGbjhf ear and sense organ disorders (20 sources)Hearing loss; Translations: [Unspecified hearing loss, unspecified ear]Onset: 512230-82-2397AzusdwiIzzjj ear and sense organ disorders (2 sources)Sensorineural hearing loss, bilateral; Translations: [Sensorineural hearing loss, bilateral]31-87-7103YamulfwZiija ear and sense organ disorders (1 source)Impacted cerumen, bilateral; Translations: [Impacted cerumen] 05-00-0795LvmnazpqAeply ear and sense organ disorders (2 sources)Bilateral tinnitus; Translations: [Tinnitus, bilateral]06-23-2024 EpisodicOther gastrointestinal disorders (1 source)Intestinal malabsorption; 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]Onset: 33-96-6440BanrovgNfncu gastrointestinal disorders (20 sources)Non-infective diarrhea; 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]Onset: 632820-95-7461TxcnsigQosjx gastrointestinal disorders (1 source)Gastrostomy present; Translations: [Gastrostomy status]12-13-2024 ChronicOther gastrointestinal disorders (2 sources)Gastrostomy status; Translations: [Gastrostomy status (Multi)]Onset: 37-28-7640LprixwzQiypg gastrointestinal disorders (1 source)Vncokksfg90-94-8900CaytvxqnZzxzs gastrointestinal disorders (6 sources)Hard mxyec38-78-3277AigscuoxVfymt gastrointestinal disorders (1 source)Digestive system finding; Translations: [Other specified symptoms and signs involving the digestivesystem and abdomen]Onset: 26-34-2704TzrviffnBekne gastrointestinal disorders (2 sources)Abnormal feces; Translations: [Other fecal abnormalities]Onset: 81-77-9224RsxomofvLbapz gastrointestinal disorders (3 sources)Loose -19-2127SxlwbxypGibau gastrointestinal disorders (1 source)Non-infective mfhcykhy03-88-4568RgxxafvbCxuqs gastrointestinal disorders (3 sources)Swollen abdomen; Translations: [Abdominal distension (gaseous)]Onset: 92-33-7726RjljbzmuRqtqf gastrointestinal disorders (9 sources)Jgxyxypm39-26-5512XyhkjdqpEugog gastrointestinal disorders (20 sources)Constipation; Translations: [Constipation, unspecified]08-02-2024 EpisodicComment on above:Secondary to opioids, and decreased oral intakeOther gastrointestinal disorders (1 source)Therapeutic opioid induced rnlenlpmphro56-93-2951UrbohxjbWlptedc on above:noted in 08/16/2024 Palliative Care Consult Note page 5. added per OP CDI policy.Other gastrointestinal disorders (7 sources)Esophageal dysphagia; Translations: [Other dysphagia]09-27-2024 EpisodicOther lower respiratory disease (3 sources)Apnea, not elsewhere classifiedEpisodicOther lower respiratory disease (9 sources)Nodule of lung; Translations: [Solitary pulmonary nodule]09-20-2024 EpisodicOther nervous system disorders (20 sources)Polyneuropathy associated with another disorder; Translations: [Polyneuropathy in diseases classified elsewhere]Onset: ChronicOther nervous system disorders (1 source)Polyneuropathy in diseases classified elsewhereChronicOther nervous system disorders (1 source)Other chronic pain; Translations: [OTHER CHRONIC PAIN]Onset: 47-21-6926KectxhdWvjvr nervous system disorders (20 sources)Carpal tunnel syndrome of left wrist; Translations: [Carpal tunnel syndrome, left upper limb]Onset: 729915-19-7957EdqgyhjOxukl nervous system disorders (20 sources)Carpal tunnel syndrome of right wrist; Translations: [Carpal tunnel syndrome, right upper limb]Onset: 510812-48-9461ZnukdiaCwcuw nervous system disorders (20 sources)Neuropathy; Translations: [Polyneuropathy, unspecified]Onset: 371821-99-2209ZszhdibHkpnm nervous system disorders (20 sources)Normal pressure hydrocephalus; Translations: [(Idiopathic) normal pressure hydrocephalus]Onset: 399911-39-4955YsaxxugOkhxh nervous system disorders (4 sources)Polyneuropathy; Translations: [Polyneuropathy, unspecified]02-16-2024 ChronicOther nervous system disorders (20 sources)Pain due to neoplastic disease; Translations: [Neoplasm related pain (acute) (chronic)]88-13-8634TrnrepoFvpiphv on above:Jeremie reports increasing severity of throat [...] (chronic); Translations: [Neoplasm related pain (acute) (chronic)]Onset: 998511-84-2758FmnytgfYaqmb nervous system disorders (17 sources)Numbness of njdy44-98-0730SfcaosdfXikbf nervous system disorders (18 sources)Acute postoperative pain; Translations: [Other acute postprocedural pain]04-63-3169CghqjnzfPawex nervous system disorders (1 source)Other acute postprocedural pain; Translations: [Other acute postprocedural pain]Onset: 43-49-9960ZjifrsbiFtzpq non-traumatic joint disorders (4 sources)Other instability, right ankle; Translations: [OTHER INSTABILITY RIGHT ANKLE]Onset: 15-95-7329OqeztzmoJhqjs nutritional; endocrine; and metabolic disorders (1 source)Body mass index 25-29 - qkghuraxal50-15-2392QskldnryBtnev screening for suspected conditions (not mental disorders or infectious disease) (2 sources)Screening for malignant neoplasm of colon done; Translations: [Encounter for screening for malignant neoplasm of colon]Onset: 02-25-2023 EpisodicOther upper respiratory infections (1 source)Acute upper respiratory infection, unspecified; Translations: [Acute upper respiratory infections of unspecified site]42-36-1013RubiwkkoWvsrqosun; thrombophlebitis and thromboembolism (1 source)Personal history of other venous thrombosis and embolism; Translations: [PERS HX OTH VENOUS THROMBOSIS AND EMBO]Onset: 19-46-5526Rzgmsfmk Pneumonia (except that caused by tuberculosis or sexually transmitted disease) (18 sources)Pneumonia; Translations: [Pneumonia, unspecified organism]Onset: 440316-30-3797KowrabiyXyqlribwr (except that caused by tuberculosis or sexually transmitted disease) (1 source)Pneumonia (except that caused by tuberculosis or sexually transmitted disease); Translations: [PNEUMONIA D/T CORONAVIRUS DIS 2019]Onset: 09-28-2022 Residual codes; unclassified (18 sources)Sleep -40-4403WmekyduPjyzxial codes; unclassified (20 sources)Obstructive sleep apnea syndrome; Translations: [Obstructive sleep apnea (adult) (pediatric)]Onset: 501150-10-6204YsfmvcsRucegpgj codes; unclassified (20 sources)Daytime somnolence; Translations: [Other hypersomnia]Onset: 854415-37-6087SgpojfaIgjvofru codes; unclassified (8 sources)Obstructive sleep apnea (adult) (pediatric); Translations: [Obstructive sleep apnea (adult)(pediatric)]ChronicResidual codes; unclassified (3 sources)Other hypersomnia; Translations: [Excessive daytime sleepiness] ChronicResidual codes; unclassified (1 source)Sleep apnea, unspecified; Translations: [SLEEP APNEA UNSPECIFIED] Onset: 13-95-4863EkpmimiBdjamjdz codes; unclassified (20 sources)Central sleep apnea syndrome; 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]Onset: 114204-37-1380UktbkjyMencbfru codes; unclassified (4 sources)Primary central sleep apnea; Translations: [Unspecified sleep apnea] 60-27-6682IdfkfvkJtwhbbda codes; unclassified (1 source)Acquired absence of other genital organ(s); Translations: [ACQUIRED ABSENCE OTH GENITAL ORGANS]Onset: 83-34-4741SlkwbqufEvnzbiwe codes; unclassified (1 source)At risk for imbalanced nutrition, less than body requirements; Translations: [Other specified personal risk factors, not elsewhere classified] 97-09-1692EvgelbdwLojgjsyq codes; unclassified (2 sources)Other specified personal risk factors, not elsewhere classified; Translations: [Other specified personal risk factors, not elsewhere classified] Onset: 41-03-1107GefssssvYyrdyzmza and history of mental health and substance abuse codes (1 source)Pr-noiwtc70-15ievhav65-45-5302MeaxgqdrLxinbfmve malignancies (2 sources)Secondary malignant neoplasm of neck; Translations: [Secondary malignant neoplasm of other specified sites]22-04-1172BrlwrnjTtylgmvnl malignancies (3 sources)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 and neck lymph node; Translations: [Secondary and unspecified malignant neoplasmof lymph nodes of head, face and neck]03-29-2024 ChronicSecondary malignancies (2 sources)Secondary malignant neoplasm of lymph nodes of neck; Translations: [Secondary and unspecified malignant neoplasm of lymph nodes of head, face and neck]54-27-5491SmpkgimFmzixue on above:noted in 08/21/2024 [facility] DC Summary page 2. added per OP CDI policy.Secondary malignancies (2 sources)Secondary and unspecified malignant neoplasm of lymph nodes of head, face and neck; Translations: [Secondary and unspecified malignant neoplasm of lymph nodes of head, face and neck]Onset: 90-15-1409ZqcupzaOzswylegrse; intervertebral disc disorders; other back problems (20 sources)Spondylosis without myelopathy or radiculopathy, lumbar region; Translations: [Other intervertebraldisc degeneration, lumbar region]Onset: 88-72-9523WnbzhjuRuegjts on above:noted in 09/15/2023 Pain Management Consult note page 5. added per OP CDI policy.Substance-related disorders (20 sources)Hypnotic dependence; Translations: [Sedative, hypnotic or anxiolytic dependence, uncomplicated]Onset: 01-27-2024 Resolved: 89-00-5915AqoddydOdozvofpdpvv (4 sources)LOW BACK PAIN, UNSPECIFIED; Translations: [LOW BACK PAIN, UNSPECIFIED]Onset: 86-96-4754Vcdoteidysxl (8 sources)Patient encounter -62-0330Uqtpdcqockmw (4 sources)A [facility] screening has identified you as [...] Four Ways to Beat the Frailty Risk [email or web address] [email or web address]-[email or web address]/rkzf-rauxoy-fiyi- qwby-ne-exet-the-fra lbxv-nvzz17-98yhbd62-25-6726Ynoaiscxsqyp (1 source)Mild pulmonary srewhdujzhkn38-00-5907Jftjngy on above:added per 08/23/2024 query response.Unclassified (10 sources)Resume your Plavix tomorrowUnclassified (1 source)C10.9 - Malignant neoplasm of oropharynx, unspecifiedUrinary tract infections (1 source)Urinary tract infectious pmkdwsu66-32-3562ZqnjozajOndbd infection (10 sources)Disease caused by 2019-nCoV; Translations: [COVID-19]Onset: 09-22-2022 Past or Other Problems Problem ClassificationProblemDateDocumented DateEpisodic/ChronicBiliary tract disease (20 sources)Gallstone; Translations: [Calculus of gallbladder without cholecystitis without obstruction]Onset: 04-03-2022 Resolved: 308611-67-0387SantvzcbOeewuk of prostate (20 sources)History of malignant neoplasm of prostate; Translations: [Personal history of malignant neoplasm ofprostate]Onset: 325537-40-5764Yethezil Coronary atherosclerosis and other heart disease (7 sources)Stented coronary artery; Translations: [Presence of coronary angioplasty implant and graft]Onset: 074130-79-4333EoffhjyiLaxnbqkn of mouth; excluding dental (14 sources)Ulcer of mouth; Translations: [Other forms of stomatitis]Onset: 238985-90-9574IocqangpShcseacrwpdnvd ulcer (except hemorrhage) (20 sources)Peptic ulcer; Translations: [Peptic ulcer, site unspecified, unspecified as acute or chronic, without hemorrhage or perforation]Onset: 04-03-2022 Resolved: 183475-12-0771BxdutfyEljgzalvjqaqk symptoms and ill-defined conditions (20 sources)Incontinence; Translations: [Incontinence without sensory awareness] Onset: 01-27-2024 Resolved: 993806-01-0572DlirdciXxdfusfmscy (20 sources)Hemorrhoids; Translations: [Unspecified hemorrhoids]Onset: 366022-63-6377TsxgvwhlZbkzbngfaeui conditions of male genital organs (20 sources)Prostatitis; Translations: [Inflammatory disease of prostate, unspecified]Onset: 390785-70-6963MayrcwpoMqfxqxjasezcs (20 sources)Lymphadenopathy; Translations: [Cervical lymphadenopathy]Onset: 641109-46-6503KblbmqzoBqdlgyeyuft chest pain (20 sources)Chest wall pain; Translations: [Other chest pain]Onset: 04-03-2022 Resolved: 255090-05-1623RsofhffwRnchn aftercare (6 sources)Encounter for palliative care; Translations: [Encounter for palliative care]Onset: 456761-67-4626TnfvesreClduf and unspecified benign neoplasm (20 sources)History of polyp of colon; Translations: [Personal history of colonic polyps]Onset: 35-97-4919RfzzpkzfLjygz and unspecified benign neoplasm (20 sources)Polyp of colon; Translations: [Polyp of colon]Onset: 01-27-2024 36-54-1734LaywgypnZacoa connective tissue disease (2 sources)Pain in left finger(s); Translations: [PAIN IN LEFT FINGERS]Onset: 11-29-2021 Resolved: 94-12-4083WawesgwqIpvtb connective tissue disease (4 sources)Pain in right foot; Translations: [PAIN IN RIGHT FOOT]Onset: 17-58-0135WoadflfyVaceu connective tissue disease (3 sources)Pain in arm, unspecified; Translations: [PAIN IN ARM UNSPECIFIED] Onset: 02-01-2776KfqtmdglOgfjj connective tissue disease (1 source)Pain in left upper arm; Translations: [PAIN IN LEFT UPPER ARM]Onset: 66-82-1048WqskkqnvWhlxq connective tissue disease (1 source)Pain in right upper arm; Translations: [PAIN IN RIGHT UPPER ARM]Onset: 57-39-7690CgfqppjrKxnyc connective tissue disease (20 sources)Disorder of musculoskeletal system; Translations: [Other specified disorders of synovium, right ankle and foot]Onset: 946999-82-9052Ywmjwqwf Other connective tissue disease (20 sources)Pain in limb; Translations: [Pain in unspecified limb]Onset: 01-27-2024 Resolved: 625563-09-4162UvxcdbfjVcijm diseases of veins and lymphatics (20 sources)Peripheral venous insufficiency; Translations: [Venous insufficiency (chronic) (peripheral)]Onset: 873964-15-3701BfijuhmdEamqo gastrointestinal disorders (4 sources)Diarrhea, unspecified; Translations: [DIARRHEA UNSPECIFIED]Onset: 36-31-2912QdmclgckQfgio gastrointestinal disorders (20 sources)Dysphagia; Translations: [Dysphagia, unspecified]Onset: 01-12-2023 37-71-8650MdiknxlhHclze gastrointestinal disorders (20 sources)Urgent desire for stool; Translations: [Fecal urgency]Onset: 01-12-2023 Resolved: 006711-00-0337ScpkcbawTeqdt gastrointestinal disorders (20 sources)Irregular bowel habits; Translations: [Other specified symptoms and signs involving the digestive system and abdomen]Onset: EpisodicOther gastrointestinal disorders (20 sources)Abdominal bloating; Translations: [Abdominal distension (gaseous)] Onset: 01-27-2024 Resolved: 559035-71-2285PqadgcqcMhexs gastrointestinal disorders (20 sources)Smearing feces; Translations: [Fecal smearing]Onset: 04-03-2022 Resolved: 932530-75-9658NocqteoiVqlha gastrointestinal disorders (20 sources)Constipation, unspecified; Translations: [Constipation, unspecified] Onset: 825717-39-5200LvkpusiuGetug gastrointestinal disorders (1 source)Dysphagia, unspecified; Translations: [Dysphagia, unspecified]Onset: 31-05-0545GnwlpczrRrmsa nervous system disorders (20 sources)Entrapment of left ulnar nerve; Translations: [Lesion of ulnar nerve, left upper limb]Onset: 01-27-2024 Resolved: 688176-17-3244JziknttBqpii nervous system disorders (20 sources)Entrapment of right ulnar nerve; Translations: [Lesion of ulnar nerve, right upper limb]Onset: 01-27-2024 Resolved: 276861-29-8200UctkhrrFcuot nervous system disorders (1 source)Unspecified disturbances of skin sensation; Translations: [UNS DISTURBANCES OF SKIN SENSATION]Onset: 85-02-2770TvlopcowPxmle nervous system disorders (20 sources)Paresthesia of skin; Translations: [Disturbance of skin sensation] Onset: 699576-06-1779VpfihsxpLlcfh nervous system disorders (20 sources)Unsteady when standing; Translations: [Unsteadiness on feet]Onset: 01-27-2024 Resolved: 428189-65-2507JbakeolyJvleq non-epithelial cancer of skin (20 sources)Malignant neoplasm of skin; Translations: [Unspecified malignant neoplasm of skin, unspecified]Onset: 905313-04-3953TgzamjzhNhecg non- traumatic joint disorders (20 sources)Arthralgia of the ankle and/or foot; Translations: [Pain in right ankle and joints of right foot]Onset: 612309-64-8221OjcrglqgKudbv nutritional; endocrine; and metabolic disorders (20 sources)Body mass index 30+ - obesity; Translations: [Obesity, unspecified] Onset: 04-03-2022 Resolved: 408654-70-4077NaeitwwQdzki nutritional; endocrine; and metabolic disorders (20 sources)Overweight in adulthood with body mass index of 25 or more but less than 30; Translations: [Body mass index (BMI) 29.0-29.9, adult]Onset: 01-27-2024 29-79-6744CbpxufipVgvar skin disorders (4 sources)Nail dystrophy; Translations: [NAIL DYSTROPHY]Onset: 06-11-2022 EpisodicOther skin disorders (1 source)Other nail disorders; Translations: [OTHER NAIL DISORDERS]Onset: 03-48-6869XacwqzhsQsdik skin disorders (20 sources)Mass of neck; Translations: [Localized swelling, mass and lump, neck]Onset: 957779-54-4922VcevhqeaEmytoz media and related conditions (20 sources)Otitis media; Translations: [Otitis media, unspecified, unspecified ear]Onset: 04-14-2023 Resolved: 794572-23-3822SjjaagfoXbtqnbtbaf disorders (not diabetes) (20 sources)Cyst of pancreas; Translations: [Cyst of pancreas]Onset: 01-12-2023 EpisodicResidual codes; unclassified (20 sources)FH: Stomach cancer; Translations: [Family history of malignant neoplasm of digestive organs]Onset: 017224-32-6009JzgfotlvGapcviys codes; unclassified (20 sources)Insomnia; Translations: [Insomnia, unspecified]Onset: 04-03-2022 71-36-3277ZwieweyeJmrdselg codes; unclassified (20 sources)Edema of lower extremity; Translations: [Localized edema]Onset: 912065-14-2044DhnmlgejTnehrruu codes; unclassified (19 sources)Difficult venous access; Translations: [Other specified health status]Onset: 346273-78-8375WlfhtamoXcxq and subcutaneous tissue infections (20 sources)Cellulitis of left toe; Translations: [Cellulitis and abscess of toe, unspecified]Onset: 01-27-2024 Resolved: 770902-89-8267DalkuicjPqdbixcdexw; intervertebral disc disorders; other back problems (20 sources)Muscle spasm of back; Translations: [Radiculopathy, cervical region] Onset: 03-05-5927GmduciwzUuucfsdpzfcj (1 source)Paroxysmal ventricular tachycardia I47.29Unclassified (1 source)Acute cough R05.1Unclassified (1 source)LOW BACK PAIN, UNSPECIFIED; Translations: [LOW BACK PAIN, UNSPECIFIED] Onset: 26-63-2128Uokwmtuikoav (7 sources)Onset: 04-07-2024 Resolved: Viral infection (20 sources)Disease caused by 2019-nCoV; Translations: [COVID-19]Onset: 11-10-2022 Resolved: 613711-02-7388Hsmampnf Results Test NameValueInterpretationReference RangeFacilityOrders Onlyon 02-06-2025 Orders [id number] Jeremie Bennett 1940 M Date Provider Department Center 02/06/2025 STACEY ERNANDEZ [facility] Family History Problem Relation Age of Onset Coronary artery disease Mother Kidney disease Mother Heart failure Mother Family Status - Relation Status Age at Mother Father DeceasedNormalUniversity of The Hospit[facility] CampusOffice Visiton 73-16-2728Nedrjr-up [id number] Jeremie Bennett 1940 M Date Provider Department Center 12/05/2024 STACEY ERNANDEZ GILA [facility] Dimitri Family History Problem Relation Age of Onset Coronary artery disease Mother Kidney disease Mother Heart failure Mother Family Status - Relation Status Age at Mother Father Level of Service:48579 [place] OFFICE/OUTPATIENT ESTABLISHED LOW [facility]-2024 Ambulatory Visit SummaryAmbulatory [...] Film) fluticasone nasal (fluticasone Nasal 0.05 mg/inh [place]) furosemide (furosemide 20 mg Tab) irbesartan (irbesartan [...] fluticasone nasal (fluticasone Nasal 0.05 mg/ inh [place]) See instructions USE 1 SPRAY IN BOTH [...] to opioid therapy 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 Diverticulosis FH: stomach cancer Former smo (more content not included)...[facility] Medicine Office/Clinic Noteon 38-23-7143Sqnblz Medicine Office/Clinic NoteFaaddison gil[facility] hospital Medicine Office/Clinic Note Chief Complaint Subsequent [...] of clutter to prevent tripping and/or falling. [place] Advance Directives reviewed, present at home. Encouraged [...] maintain a healthy weight. (more content not included)...[facility] HospitalComment on above:Result Comment: Electronically Signed By: MARICRUZ TREVINO CNP\.br\Date and Time Signed: 11/21/24 16:03 EDT\.br\Electronically Co-Signed By: Monse Puckett\.br\Date and Time Co-Signed: 11/21/24 14:59EDT Alanine aminotransferase [Enzymatic activity/volume] in Serum or PlasmaOrdered By: Elif Carroll on 25-19-0589HJG [Catalytic activity/Vol]14 U/L7-52[facility] CenterComment on above:Performed By: #### MG, SCAN CBC, CMP #### [facility] [address] [place] [address] USAAlbumin [Mass/volume] in Serum or Plasma by Bromocresol green (BCG) dye binding methoOrdered By: Elif Carroll on 28-97-5530Lcafssb BCG dye [Mass/Vol]4.2 g/dL3.5-5.7FBarnesville HospitalAlkaline phosphatase [Enzymatic activity/volume] in Serum or PlasmaOrdered By: Elif Carroll on 07-88-4192KPR [Catalytic activity/Vol]80 U/C44-093CgcmctmenLakehealth Tripoint Medical CenterComment on above:Performed By: #### MG, SCAN CBC, CMP #### [facility] [address] [place] [address] USAAspartate aminotransferase [Enzymatic activity/volume] in Serum or PlasmaOrdered By: Elif Carroll on 17-46-8694YGB [Catalytic activity/Vol]15 U/Q54-01QiebiouujLakehealth Tripoint Medical CenterComment on above: Performed By: #### MG, SCAN CBC, CMP #### [facility] [address] [place] [address] USABasophils [#/volume] in Blood by Automated countOrdered By: Elif Carroll on 24-85-6097Kxhvaoznf (Bld) [#/Vol]0.0 10*3/uL0.0-0.2FBarnesville HospitalComment on above:Performed By: #### MG, SCAN CBC, CMP #### [facility] [address] [place] [id number] USABasophils/100 leukocytes in Blood by Automated count Ordered By: Elif Carroll on 56-25-5134Iuywdsnrf/100 WBC (Bld)0.5 %.[facility]point Medical CenterComment on above:Performed By: #### MG, SCAN CBC, CMP #### [facility] [address] [place] [address] USABilirubin.total [Mass/volume] in Serum or PlasmaOrdered By: Elif Carroll on 72-47-1216Lxrzdwkkj [Mass/Vol]0.4 mg/dL0.3-1.0L[facility]point Medical CenterComment on above:Performed By: #### MG, SCAN CBC, CMP #### [place] [address] USACalcium [Mass/volume] in Serum or PlasmaOrdered By: Elif Carroll on 88-46-8751Jykvlbe [Mass/Vol]9.3 mg/dL8.6-10.3FBarnesville HospitalComment on above:Performed By: #### MG, SCAN CBC, CMP #### [facility] [address] [place] [address] USACapillary blood glucose measurement by glucometer (mass/volume)Ordered By: Talib Faustin on 80-98-7432Gmherbv [Mass/Vol]114 mg/dL [facility] Medical CenterComment on above:Random Glucose Reference Range [...] the diagnosis of Diabetes Mellitus. PERFORMED BY: [address] [place] [address] PATHOLOGIST ADVERTISING REPRESENTATIVE AD ROSENBAUM M.D.Performed By: #### GLULS #### Point of Care testing ,Carbon dioxide, total [Moles/volume] in Serum or PlasmaOrdered By: Elif Carroll on 85-94-8526BH9 [Moles/Vol]26.6 mmol/L21.0-31.0L[facility] Medical CenterComment on above:Performed By: #### MG, SCAN CBC, CMP #### [place] [id number] USAChloride [Moles/volume] in Serum or PlasmaOrdered By: Elif Carroll on 59-78-6072Rxgphnid [Moles/Vol]104 mmol/M85-036KqgxlldsgLakehealth Tripoint Medical CenterComment on above:Performed By: #### MG, SCAN CBC, CMP #### [facility] [address] [place] [address] USAComprehensive Metabolic Panelon 18-09-1760Aijlcas [Mass/Vol]4.2 g/dLNormal3.5-5.7The [facility] Carolina Physician GroupComment on above: Performed By: #### MG, SCAN CBC, CMP #### [place] [id number] USACreatinine Clr Calc Mvpsqxse98.92NormalThe [facility] North Carolina Physician GroupComment on above:Performed By: #### MG, SCAN CBC, CMP #### [facility] [address] [place] [address] USAGFR/1.73 sq M.predicted MDRD (S/P/Bld) [Vol rate/Area] mL/min/{1.73_m2}NormalThe [facility] Carolina Physician GroupComment on above:Performed By: #### MG, SCAN CBC, CMP #### [place] [address] USACreatinine [Mass/volume] in Serum or PlasmaOrdered By: Elif Carroll on 84-70-0922Nupddjmohg [Mass/Vol]0.80 mg/dL0.70-1.30L[facility] Medical CenterComment on above:Performed By: #### MG, SCAN CBC, CMP #### [facility] [address] [place] [address] USAEosinophils [#/volume] in Blood by Automated countOrdered By: Elif Carroll on 71-33-7021Dkcwaidobid (Bld) [#/Vol]0.2 10*3/uL0.0-0.45 [facility] Medical CenterComment on above:Performed By: #### MG, SCAN CBC, CMP #### [facility] [address] [place] [address] USAEosinophils/100 leukocytes in Blood by Automated count Ordered By: Elif Carroll on 26-29-3581Urljtguaszh/100 WBC (Bld)2.9 %.[facility] Medical CenterComment on above:Performed By: #### MG, SCAN CBC, CMP #### [facility] [address] [place] [address] USAErythrocyte distribution width [Ratio] by Automated count Ordered By: Elif Carroll on 11-16-8996Narhsyggipk distribution width (RBC) [Ratio]14.7 %12.0-14.8L[facility] Medical CenterComment on above: Performed By: #### MG, SCAN CBC, CMP #### [address] [place] [address] USAErythrocyte morphology finding [Identifier] in Blood Ordered By: Elif Carroll on 62-00-2968LIP morphology finding Nom (Bld)Normal NormalLakehealth Tripoint Medical CenterComment on above:Performed By: #### MG, SCAN CBC, CMP #### [place] [address] USAErythrocytes [#/volume] in Blood by Automated countOrdered By: Elif Carroll on 56-11-2849GZJ (Bld) [#/Vol]4.11 10*6/uL3.90-5.60[facility] Medical CenterComment on above:Performed By: #### MG, SCAN CBC, CMP #### [place] [address] USAGlucose [Mass/volume] in Serum or PlasmaOrdered By: Elif Carroll on 99-34-3526Yifpduc [Mass/Vol]108 mg/kXRohz74-052XcalvzzjcLakehealth Tripoint Medical CenterComment on above:ADA recommended reference rangeRandom [...] By: #### MG, SCAN CBC, CMP #### [place] [address] USAHematocrit [Volume Fraction] of Blood by Automated count Ordered By: Elif Carroll on 66-65-9650Mlpukcypmp (Bld) [Volume fraction]38.5 % Low38.8-50.0L[facility] Medical CenterComment on above:Performed By: #### MG, SCAN CBC, CMP #### [place] [address] USAHemoglobin [Mass/volume] in BloodOrdered By: Elif Carroll on 60-88-1538Inrsqqyxgy (Bld) [Mass/Vol]12.8 g/dLLow13.0-17.0[facility] Medical CenterComment on above:Performed By: #### MG, SCAN CBC, CMP #### [facility] [address] [place] [address] USALeukocytes [#/volume] corrected for nucleated erythrocytes in Blood by Automated counOrdered By: Elif Carroll on 08-69-4456SDB corrected for nucl RBC Auto (Bld) [#/Vol]8.5 10*3/uL4.1-10.5FBarnesville HospitalLeukocytes [#/volume] in Blood by Automated countOrdered By: Elif Carroll on 78-08-9388TPW (Bld) [#/Vol]8.5 10*3/uL4.1-10.5FBarnesville HospitalComment on above:Performed By: #### MG, SCAN CBC, CMP #### [facility] [address] [place] [address] USALymphocytes [#/volume] in Blood by Automated countOrdered By: Elif Carroll on 41-43-3473Wienrmmhwrg (Bld) [#/Vol]1.9 10*3/uL1.00-4.8 [facility] Medical CenterComment on above:Performed By: #### MG, SCAN CBC, CMP #### [facility] [address] [place] [address] USALymphocytes/100 leukocytes in Blood by Automated count Ordered By: Elif Carroll on 79-85-0654Kjfpslkzxnz/100 WBC (Bld)22.1 %.[facility] Medical CenterComment on above:Performed By: #### MG, SCAN CBC, CMP #### [facility] [address] [place] [address] USAH [Entitic mass] by Automated countOrdered By: Elif Carroll on 24-43-6408JKO (RBC) [Entitic mass]31.1 pg27.5-35.2FBarnesville HospitalComment on above:Performed By: #### MG, SCAN CBC, CMP #### [facility] [address] [place] [address] USAHC Auto (RBC) [Mass/Vol]Ordered By: Elif Carroll on 26-37-5681PKVH (RBC) [Mass/Vol]33.2 g/dL32.5-35.6FBarnesville HospitalMCV [Entitic volume] by Automated countOrdered By: Elif Carroll on 34-49-4847DGT (RBC) [Entitic vol]93.7 fL83.5-101L[facility] Medical CenterComment on above:Performed By: #### MG, SCAN CBC, CMP #### [place] [address] USAMagnesium [Mass/volume] in Serum or PlasmaOrdered By: Elif Carroll on 95-25-1444Tfvztyiac [Mass/Vol]2.1 mg/dL1.9-2.7FBarnesville HospitalComment on above:Result Comment: PERFORMED BY: [place] [address] PATHOLOGIST ADVERTISING REPRESENTATIVE AD ROSENBAUM M.D.Performed By: #### MG, SCAN CBC, CMP #### [address] [address] USAMonocytes [#/volume] in Blood by Automated countOrdered By: Elif Carroll on 34-77-9107Geqyiekas (Bld) [#/Vol]0.8 10*3/uL0.0-0.8[facility] Medical CenterComment on above:Performed By: #### MG, SCAN CBC, CMP #### [facility] [address] [place] [address] USAMonocytes/100 leukocytes in Blood by Automated count Ordered By: Elif Carroll on 13-61-2947Zugsgdrut/100 WBC (Bld)9.2 %.[facility] Medical CenterComment on above:Performed By: #### MG, SCAN CBC, CMP #### [place] [id number] USANeutrophils [#/volume] in Blood by Automated countOrdered By: Elif Carroll on 54-66-7308Fqppqqwddvp (Bld) [#/Vol]5.6 10*3/uL1.8-7.7 [facility] Medical CenterComment on above:Performed By: #### MG, SCAN CBC, CMP #### [facility] [address] [place] [address] USANeutrophils/100 leukocytes in Blood by Automated count Ordered By: Elif Carroll on 94-58-1892Qxldettqtte/100 WBC (Bld)65.3 %.[facility] Medical CenterComment on above:Performed By: #### MG, SCAN CBC, CMP #### [facility] [address] [place] [id number] USANo Panel InformationOrdered By: Elif Carroll on 11-13-2024 Estimated GFR (CKD-EPI)> 60.0 mL/MinLakehealth Tripoint Medical CenterPharmacy Creatinine Clearance (Chem60.92L[facility] Tripoint Medical CenterNucleated erythrocytes [Presence] in Blood by Automated countOrdered By: Elif Carroll on 67-43-2426Oolrrknqt RBC Auto Ql (Bld)0.2 /100{WBC}0-0.5FBarnesville HospitalPET tumor subq tx strat sb-mton 72-89-1463KLO tumor subq tx strat sb-mtTR[facility]HE[facility] [place] [address] Nuclear Medicine Report Signed Patient: Jeremie Bennett MR#: [id number] 669 : 1940 Acct:[id number] Age/Sex: 84 / M ADM Date: 11/23/24 [...] Jr., D.OAidan 11/13/2024 3:50 PM Dictation Location: [place] [address] Transcribed By: [facility] 11/13/24 1550 Dictated By: Mario Urias Jr, DO 11/13/24 1539 Signed By: 11/13/24 1550[facility] Physician GroupPlatelet adequacy [Presence] in Blood by Light microscopyOrdered By: Elif Carroll on 76-70-6414Lxaicnzwr LM Ql (Bld)[facility] Medical CenterPlatelet mean volume [Entitic volume] in Blood by Automated countOrdered By: Elif Carroll on 11-13-2024 Platelet mean volume (Bld) [Entitic vol]8.4 fL6.6-10.1FBarnesville HospitalComment on above:Performed By: #### MG, SCAN CBC, CMP #### [facility] [address] [place] [address] USAPlatelet morphology finding [Identifier] in BloodOrdered By: Elif Carroll on 14-88-6443Zaudsbjm morphology finding Nom (Bld)[facility]erm[facility] HospitalPlatelets [#/volume] in Blood by Automated countOrdered By: Elif Carroll on 87-20-7607Ehhtmgzot (Bld) [#/Vol]223 10*3/uL 150-450L[facility] Medical CenterComment on above:Performed By: #### MG, SCAN CBC, CMP #### [facility] [address] [place] [address] USAPotassium [Moles/volume] in Serum or PlasmaOrdered By: Elif Carroll on 99-86-2038Zmgyjoixc [Moles/Vol]4.2 mmol/L3.5-5.1FBarnesville HospitalComment on above:Performed By: #### MG, SCAN CBC, CMP #### [facility] [address] [place] [address] USAProtein [Mass/volume] in Serum or PlasmaOrdered By: Elif Carroll on 13-66-2205Hsfsjck [Mass/Vol]7.3 g/dL6.4-8.9[facility] Medical CenterComment on above:Performed By: #### MG, SCAN CBC, CMP #### [facility] [address] [place] [address] USAScan and CBCon 46-94-5746Nkln Corpuscular HGB Conc33.2 g/aUOiojuz57.5-35.6The [facility] Physician GroupComment on above:Performed By: #### MG, SCAN CBC, CMP #### [facility] [address] [place] [address] USANRBC%0.2 /100{WBC}Normal0-0.5[facility] Comment on above:Performed By: #### MG, SCAN CBC, CMP #### [place] [address] USAPlatelet EstimateNormalNormalNormHialeah Hospital Physician [facility] CenterComment on above:Performed By: #### MG, SCAN CBC, CMP #### [facility] [address] [place] [address] USAPlatelet MorphologyNormalNormalNormHialeah Hospital Physician [facility] CenterComment on above:Result Comment: PERFORMED BY: [place] [address] PATHOLOGIST ADVERTISING REPRESENTATIVE AD ROSENBAUM M.D.Performed By: #### MG, SCAN CBC, CMP #### [facility] [address] [place] [address] USAWhite Blood Count8.5 [CFU]/mLNormal4.1-10.5The [facility] Physician GroupComment on above:Performed By: #### MG, SCAN CBC, CMP #### [facility] [address] [place] [address] USASerum globulin measurement by calculation (mass/volume) Ordered By: Elif Carroll on 51-25-5291Pgjqgvre (S) [Mass/Vol]3.1 g/dLLakehealth Tripoint Medical CenterComment on above:Performed By: #### MG, SCAN CBC, CMP #### [facility] [address] [place] [address] USASerum or plasma albumin/globulin mass ratioOrdered By: Elif Carroll on 99-89-8959Rnxrzma/Globulin [Mass ratio]1.4 {ratio}[facility] CenterComment on above:Performed By: #### MG, SCAN CBC, CMP #### [place] [address] USASerum or plasma anion gap determinationOrdered By: Elif Carroll on 66-83-6363Lqtrc gap [Moles/Vol]10.6 mmol/L6.0-15.0[facility] Medical CenterComment on above:Performed By: #### MG, SCAN CBC, CMP #### [facility] [address] [place] [address] USASodium [Moles/volume] in Serum or PlasmaOrdered By: Elif Carroll on 40-35-9664Hxxuex [Moles/Vol]137 mmol/C889-840ZqpiigmhqLakehealth Tripoint Medical CenterComment on above:Performed By: #### MG, SCAN CBC, CMP #### [facility] [address] [place] [address] USAUrea nitrogen [Mass/volume] in Serum or PlasmaOrdered By: Elif Carroll on 89-00-2708Bxgi nitrogen [Mass/Vol]29 mg/dLHigh7-25L[facility] Medical CenterComment on above:Performed By: #### MG, SCAN CBC, CMP #### [facility] [address] [place] [address] USAAmbulatory Visit Summaryon 29-91-8422Cqcffswehq Visit SummaryAmbulatory Visit Summary JEREMIE BENNETT :1940 Visit Date:2024 [...] Film) fluticasone nasal (fluticasone Nasal 0.05 mg/inh [place]) furosemide (furosemide 20 mg Tab) irbesartan (irbesartan [...] Appointments Wednesday 2:30 PM EDT With: Where: [facility] [address] [address]- Wednesday 1:20 PM EDT With: Hermes CASON, Demertius Rosa Where: [address] [address]- Medications What How Much When Instructions Unchanged nystatin (nystatin 100,000 units/ mL Oral Susp) 4 Milliliter By Mouth 4 times a day Pickup at [facility] Unchanged albuterol (Albuterol (Eqv-ProAir HFA) 90 mcg/ [...] fluticasone nasal (fluticasone Nasal 0.05 mg/ inh [place]) See instructions USE 1 SPRAY IN BOTH [...] instructions TAKE 1 CAPSULE BY (more content notincluded)...[facility] Medicine Office/Clinic Noteon 48-40-9768Ucvrru Medicine Office/Clinic NoteFaaddison gilbert hospital Medicine Office/Clinic Note Chief Complaint - The [...] QID, # 112 mL, Refills(s) 1, Pharmacy: [id number], 160, cm, 10/30/24 17:38:00 EDT, Height/Length Dosing, [...] to opioid therapy 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 [...] patch(es), Topical, q72hr fluticasone Nasal 0.05 mg/inh [place], See Instructions furosemide 20 mg Tab, 20 mg= 1 tab(s), Oral, Daily irbesartan 300 mg Tab, 300 mg= 1 tab(s), Oral, Daily isosorbide mononitrate, 30 mg, Oral, qAM latanoprost Opth 0.005% Janee metformin 500 mg ER T (more content not included)...[facility] HospitalComment on above:Result Comment: Electronically Signed By: Demetrius Cooper MD\.br\Date and Time Signed: 10/30/24 18:01 EDTAmbulatory Visit Summaryon 30-84-2246Hvckbbrkma Visit SummaryAmbulatory Visit Summary GINNY JEREMIE Alanis :1940 Visit [...] Film) fluticasone nasal (fluticasone Nasal 0.05 mg/inh [place]) furosemide (furosemide 20 mg Tab) irbesartan (irbesartan [...] Appointments Wednesday 2:30 PM EDT With: Where: [address] [phone]- Wednesday 3:20 PM EDT With: Hermes CASON, Demetrius Rosa Where: [address] [phone]- Medications What How Much When Instructions Unchanged [...] fluticasone nasal (fluticasone Nasal 0.05 mg/ inh [place]) See instructions USE 1 SPRAY IN BOTH [...] to opioid therapy 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.] to opioid therapy 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 Diverticulosis FH: stomach cancer Former smoker GERD with apnea Gla (more content not included)...[facility] Medicine Office/Clinic Noteon 22-27-0261Irdmlp Medicine Office/Clinic NoteFaaddison gilbert hospital Medicine Office/Clinic Note Chief Complaint Concerns about [...] to opioid therapy 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 [...] Irregular bowel habits Procedure/Surgical (more content not included)...[facility] HospitalComment on above:Result Comment: Electronically Signed By: Hermes CASON, Demetrius Rosa\.br\Date and Time Signed: 10/12/24 15:08 EDTCapillary blood glucose measurement by glucometer (mass/volume)Ordered By: Veena Ross on 64-24-6135Txyqggu [Mass/Vol]103 mg/dLMcCullough-Hyde Memorial Hospital Comment on above:Random Glucose Reference Range [...] Point of Care testing ,GLUCOSE POCT GLUCOMETERSon 17-82-0372XBYONPH1Jdw8: Cleaned MeterNOMS CambridgeSoft Glucose [Mass/Vol]103 mg/dLNONH HealthcareComment on above:Random Glucose Reference Range is dependent on time and content of last meal. Glucose of more than 200 mg/dL in a nonstressed, ambulatory subject supports the diagnosis of Diabetes Mellitus. [facility] HealthcareGlucose Poct Glucometerson 59-01-4900Grvpdun2Bcj8: Cleaned Meter NormalThe [facility] Carolina Physician GroupComment on above:Result Comment: PERFORMED BY: [facility] [address] [place] [address] PATHOLOGIST ADVERTISING REPRESENTATIVE HEBER SHANNON M.D.Performed By: #### GLULS #### Point of Care testing ,No Panel InformationOrdered By: Veena Ross on 65-49-4645Ocfatdv Glucose CommentGlu2: cleaned meterLakehealth Tripoint Medical CenterFaaddison gilbert hospital Medicine Office/Clinic Noteon 79-46-2404Ksahys Medicine Office/Clinic NoteFaaddison gilbert hospital Medicine Office/Clinic Note Chief Complaint ER follow up Abdominal pain and difficulty swallowing HPI Staff 2 week follow up to RUQ pain. Liver US ordered @ [facility]. Instructed to get done if pain worsens. Has since then gone to [facility] ER CC: abdominal pain & [...] day(s), # 140 mL, Refills(s) 0, Pharmacy: [facility] #[id number], 160, cm, 09/28/24 14:41:00 EDT, Height/Length Dosing, [...] oral thrush. 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 Diverticulo (more content not included)...[facility] Comment on above:Result Comment: Electronically Signed By: Hermes CASON, Demetrius Branham.br\Date and Time Signed: 09/28/24 15:12 EDTAlanine aminotransferase [Enzymatic activity/volume] in Serum or PlasmaOrdered By: Maru Hayes on 46-64-8397XVV [Catalytic activity/Vol]Alanine aminotransferase [Enzymatic activity/volume] in Serum or Plasma[address] [place], [place] [address]ALT [Catalytic activity/Vol]9 U/LNormal[address] [place], [place] [address]Comment on above:Performed By: #### MG, SCAN CBC, CMP #### [place] [address] USAAlbumin [Mass/volume] in Serum or Plasma by Bromocresol green (BCG) dye binding methoOrdered By: Maru Hayes on 00-64-2841Ahibngi BCG dye [Mass/Vol]Albumin [Mass/volume] in Serum or Plasma by Bromocresol green (BCG) dye binding metho3.5-5.7FBarnesville HospitalAlbumin BCG dye [Mass/Vol]3.5 g/dL3.5-5.7FBarnesville HospitalAlkaline phosphatase [Enzymatic activity/volume] in Serum or PlasmaOrdered By: Maru Hayes on 84-45-6443GVW [Catalytic activity/Vol]Alkaline phosphatase [Enzymatic activity/volume] in Serum or Phjvts27-746AeoersrsmLakehealth Tripoint Medical CenterALP [Catalytic activity/Vol]81 U/AZjytuo72-845Njjwwvmfd[address] Comment on above:Performed By: #### MG, SCAN CBC, CMP #### [facility] [address] [place] [address] USAAppearance of UrineOrdered By: Maru Hayes on 23-48-6954Lednuyzssq (U)Urine appearanceCleOhioHealth Riverside Methodist Hospital Appearance (U)ClearNormalClearLakehealth Tripoint Medical CenterComment on above: Order Comment: Name Collection Type:: Clean-Voided MidstreamPerformed By: #### UA #### [facility] [address] [place] [address] USAAspartate aminotransferase [Enzymatic activity/volume] in Serum or PlasmaOrdered By: Maru Hayes on 09-93-0479LAF [Catalytic activity/Vol]Aspartate aminotransferase [Enzymatic activity/volume] in Serum or Ekoijv48-31AzhsiuhbkLakehealth Tripoint Medical CenterAST [Catalytic activity/Vol]14 U/L Dyqqbx85-56Pstbbboon51 Gonzalez StreetComment on above:Performed By: #### MG, SCAN CBC, CMP #### [facility] [address] [place] [id number] USABasic Metabolic Panelon 23-52-3232Idxskillvh Clr Calc Djnbwnou23.79[facility] Physician GroupComment on above:Performed By: #### MG, SCAN CBC, CMP #### [facility] [address] [place] [address] USAGFR/1.73 sq M.predicted MDRD (S/P/Bld) [Vol rate/Area] mL/min/{1.73_m2}NormalThe [facility] Carolina Physician GroupComment on above:Performed By: #### MG, SCAN CBC, CMP #### [facility] [address] [place] [address] USABasophils Auto (Bld) [#/Vol]Ordered By: Maru Hayes on 84-05-0447Ggkntvafr (Bld) [#/Vol]Automated basophil count0.0-0.2FBarnesville HospitalBasophils [#/volume] in Blood by Automated countOrdered By: Maru Hayes on 93-93-6391Bwlymvifg (Bld) [#/Vol]0.1 10*3/uLNormal0.0-0.2 [facility] Medical CenterComment on above:Result Comment: PERFORMED BY: [place] [address] PATHOLOGIST ADVERTISING REPRESENTATIVE HEBER SHANNON M.D.Performed By: #### MG, SCAN CBC, CMP #### [facility] [address] [place] [id number] USABasophils/100 WBC Auto (Bld)Ordered By: Maru Hayes on 02-54-8901Fvgyhrluf/100 WBC (Bld)Automated basophil %.[facility] Medical CenterBasophils/100 leukocytes in Blood by Automated countOrdered By: Maru Hayes on 87-89-8429Tlcfvunoe/100 WBC (Bld)1.2 %Normal.[facility] Medical CenterComment on above:Performed By: #### MG, SCAN CBC, CMP #### [facility] [address] [place] [id number] USABilirubin Test strip Ql (U)Ordered By: Maru Hayes on 59-24-6938Jbzywpyet Ql (U)Bilirubin.total [Presence] in Urine by Test strip NegativeLakehealth Tripoint Medical CenterBilirubin Ql (U)NegativeNegative [facility] Medical CenterBilirubin.direct [Mass/volume] in Serum or PlasmaOrdered By: Maru Hayes on 66-84-3931Otdxwmvmo.direct [Mass/Vol] Bilirubin.direct [Mass/volume] in Serum or Plasma0.03-0.18FBarnesville HospitalBilirubin.direct [Mass/Vol]0.10 mg/dL0.03-0.18FBarnesville HospitalBilirubin.total [Mass/volume] in Serum or PlasmaOrdered By: Maru Hayes on 32-99-2149Aeglcnali [Mass/Vol]Bilirubin.total [Mass/volume] in Serum or Plasma0.3-1.0L[facility] Medical CenterBilirubin [Mass/Vol]0.5 mg/dL Normal0.3-1.0[facility] Medical CenterComment on above:Performed By: #### MG, SCAN CBC, CMP #### [facility] [address] [place] [address] USACT abdomen pelvis w conon 39-91-7999QS abdomen pelvis w [facility] [place] [address] [place] [address] CT Scan Report Signed Patient: Jeremie Bennett MR#: [id number] 669 : 1940 Acct:[id number] Age/Sex: 83 / M ADM Date: 09/20/24 Loc: ER Room: Type: [facility] ER Attending Dr: Copies to: [...] Gordon M.D. 09/20/2024 8:03 PM Dictation Location: [facility]--17 Transcribed By: [facility] 09/20/242002 Dictated By: Rafi Gordon II, MD 09/20/241947 Signed By: 09/20/[address] [place] [address] Physician GroupCalcium [Mass/volume] in Serum or PlasmaOrdered By: Maru Hayes on 08-46-1395Rfviucx [Mass/Vol]Calcium [Mass/volume] in Serum or Plasma8.6-10.3FBarnesville HospitalCalcium [Mass/Vol]9.5 mg/dLNormal8.6-10.3FBarnesville HospitalComment on above:Performed By: #### MG, SCAN CBC, CMP #### [facility] [address] [place] [address] USACarbon dioxide, total [Moles/volume] in Serum or Plasma Ordered By: Maru Hayes on 22-83-7449SQ7 [Moles/Vol]Carbon dioxide, total [Moles/volume] in Serum or Mpuvgl20.0-31.0[facility] Medical CenterCO2 [Moles/Vol]26.8 mmol/OQwcmen57.0-31.0[facility] Medical CenterComment on above:Performed By: #### MG, SCAN CBC, CMP #### [facility] [address] [place] [address] USAChloride [Moles/volume] in Serum or PlasmaOrdered By: Maru Hayes on 93-23-2124Hhzcgoag [Moles/Vol]Chloride [Moles/volume] in Serum or Kykxpw43-231Uzkrdyyrs[address] [place], [place] [address]Chloride [Moles/Vol]104 mmol/L Fqwjxy08-835Frufixmrh[address] [place], [place] [address]Comment on above:Performed By: #### MG, SCAN CBC, CMP #### [facility] [address] [place] [address] USAColor Auto (U)Ordered By: Maru Hayes on 09-20-2024 Color (U)Color of Urine by AutoYellowLakehealth Tripoint Medical CenterColor of Urine by AutoOrdered By: Maru Hayes on 44-40-2828Kqsym (U)Light-yellowNormal YellowLakehealth Tripoint Medical CenterComment on above:Order Comment: Name Collection Type:: Clean-Voided MidstreamPerformed By: #### UA #### [place] [address] USAComplete Blood Count Auto Diffon 36-23-9113Dvuj Corpuscular HGB Conc33.3 g/rHOonajx79.5-35.6The [facility] Physician GroupComment on above:Performed By: #### MG, SCAN CBC, CMP #### [place] [address] USAMonocytes/100 WBC (Bld)22.62 %High0.00-20.00The [facility] Physician GroupComment on above:Result Comment: For adults in ED, MDW > 20.0 may be associated with a higher risk of sepsis during the first 12 hrs of hospital admissionPerformed By: #### MG, SCAN CBC, CMP #### [place] [address] USANRBC%0.0 /100{WBC}Normal0-0.5[facility] Comment on above:Performed By: #### MG, SCAN CBC, CMP #### [facility] [address] [place] [address] USACreatinine [Mass/volume] in Serum or PlasmaOrdered By: Maru Hayes on 56-93-3002Egbnfjxtos [Mass/Vol]Creatinine [Mass/volume] in Serum or Plasma0.70-1.30[facility] Medical CenterCreatinine [Mass/Vol] 0.70 mg/dLNormal0.70-1.30[facility] Medical CenterComment on above: Performed By: #### MG, SCAN CBC, CMP #### [facility] [address] [place] [id number] USAECG 12 lead ECGon 88-95-4033QLP 12 lead ECGTRIHEALTH [facility] [address] [place] [address] [place] [address] Electrocardiograph Report Signed Patient: Jeremie Bennett MR#: [id number] : 1940 Acct:[id number] Age/Sex: 83 / M ADM Date: 09/20/24 Loc: ER Room: Type: [facility] ER Attending Dr: Ordering Provider: Maru [...] Abnormal ECG Confirmed by Maru Hayes MD ([id number]) on 09/20/2024 11:00:16 PM Referred By: Electronically Signed By: Maru Hayes MD Transcribed By: MUS Signed By Maru Hayes MD 12/08[facility] Physician GroupEosinophils Auto (Bld) [#/Vol] Ordered By: Maru Hayes on 78-44-2389Mtrhxvrgbub (Bld) [#/Vol]Automated eosinophil count0.0-0.45[facility] Medical CenterEosinophils [#/volume] in Blood by Automated countOrdered By: Maru Hayes on 87-19-8862Bulhxpodurd (Bld) [#/Vol]0.3 10*3/uLNormal0.0-0.45[facility] Medical CenterComment on above:Performed By: #### MG, SCAN CBC, CMP #### [facility] [address] [place] [address] USAEosinophils/100 WBC Auto (Bld)Ordered By: Maru Hayes on 76-49-3520Mlhuqluiqvs/100 WBC (Bld)Automated eosinophil %.[facility] CenterEosinophils/100 leukocytes in Blood by Automated countOrdered By: Maru Hayes on 30-73-8043Uxmpiahrprj/100 WBC (Bld)2.5 %Normal.[facility] CenterComment on above:Performed By: #### MG, SCAN CBC, CMP #### [facility] [address] [place] [id number] USAErythrocyte distribution width Auto (RBC) [Ratio]Ordered By: Maru Hayes on 57-83-6253Selhpykpfmo distribution width (RBC) [Ratio] Erythrocyte distribution width [Ratio] by Automated svwtkCcic03.0-14.8[facility] Medical CenterErythrocyte distribution width [Ratio] by Automated count Ordered By: Maru Hayes on 03-77-1179Esbredpgpyu distribution width (RBC) [Ratio]15.9 %High12.0-14.8[facility] Medical CenterComment on above: Performed By: #### MG, SCAN CBC, CMP #### [facility] [address] [place] [id number] USAErythrocytes [#/volume] in Blood by Automated countOrdered By: Maru Hayes on 94-18-1522VCQ (Bld) [#/Vol]3.85 10*6/uLLow3.90-5.60 [facility] CenterComment on above:Performed By: #### MG, SCAN CBC, CMP #### [facility] [address] [place] [id number] USAGlobulin Calc (S) [Mass/Vol]Ordered By: Maru Hayes on 08-75-3210Qhhnogyj (S) [Mass/Vol]Serum globulin measurement by calculation (mass/volume)[facility] CenterGlucose [Mass/volume] in Serum or PlasmaOrdered By: Maru Hayes on 60-49-7483Kikuekd [Mass/Vol]Glucose [Mass/volume] in Serum or YwsdvsNevj03-446Iiaegw[address] Comment on above:ADA recommended reference rangeRandom Glucose Reference Range is dependent on time and content of last meal. Glucose of more than 200 mg/dL in a nonstressed, ambulatory subject supports the diagnosisof Diabetes Mellitus. Glucose [Mass/Vol]105 mg/eEGwrd50-346UherkllviLakehealth Tripoint Medical CenterComment on above:ADA recommended reference rangeRandom [...] By: #### MG, SCAN CBC, CMP #### [facility] [address] [place] [address] USAGlucose [Mass/volume] in Urine by Test stripOrdered By: Maru Hayes on 54-47-9933Phuvllu Test strip (U) [Mass/Vol]Glucose [Mass/volume] in Urine by Test stripNoMemorial Hospital Glucose Test strip (U) [Mass/Vol]Normal mg/dLNoMemorial HospitalHematocrit Auto (Bld) [Volume fraction]Ordered By: Maru Hayes on 23-13-8495Yvsqmcnmsd (Bld) [Volume fraction]Hematocrit [Volume Fraction] of Blood by Automated fxysiAwj63.8-50.0[facility] Medical CenterHematocrit [Volume Fraction] of Blood by Automated countOrdered By: Maru Hayes on 25-99-7072Iyqlyemdvf (Bld) [Volume fraction]35.3 %Low38.8-50.0[facility] Medical CenterComment on above:Performed By: #### MG, SCAN CBC, CMP #### [facility] [address] [place] [address] USAHemoglobin Test strip Ql (U)Ordered By: Maru Hayes on 94-40-5072Dupldoantc Ql (U)Hemoglobin [Presence] in Urine by Test stripNegative [facility] CenterHemoglobin Ql (U)NegativeNegativeLakehealth Tripoint Medical CenterHemoglobin [Mass/volume] in BloodOrdered By: Maru Hayes on 05-72-5638Ijxdbagenb (Bld) [Mass/Vol]Hemoglobin [Mass/volume] in FmtgyAcf15.0-17.0[facility] CenterHemoglobin (Bld) [Mass/Vol] 11.8 g/dLLow13.0-17.0[facility] CenterComment on above:Performed By: #### MG, SCAN CBC, CMP #### [facility] [address] [place] [address] USAHepatic Panelon 18-37-1626Qoubytw [Mass/Vol]3.5 g/dLNormal 3.5-5.7The [facility] Physician GroupComment on above:Performed By: #### MG, SCAN CBC, CMP #### [place] [address] USABilirubin,Indirect0.4 mg/dLNormalThe [facility] Physician [facility] CenterComment on above:Performed By: #### MG, SCAN CBC, CMP #### [place] [address] USABilirubin.indirect [Mass/Vol]0.10 mg/dLNormal0.03-0.18The [facility] Physician GroupComment on above:Performed By: #### MG, SCAN CBC, CMP #### [place] [address] USAKetones Test strip Ql (U)Ordered By: Maru Hayes on 59-19-0624Ktjgrmq Ql (U)Ketones [Presence] in Urine by Test stripNegative [facility] CenterKetones [Presence] in Urine by Test strip Ordered By: Maru Hayes on 36-44-2919Gicxzpy Ql (U)NegativeNormalNegative [facility] CenterComment on above:Order Comment: Name Collection Type:: Clean-Voided MidstreamPerformed By: #### UA #### [facility] [address] [place] [address] USALeukocyte esterase [Presence] in Urine by Test strip Ordered By: Maru Hayes on 98-37-9202Tvusixxor esterase Test strip Ql (U) Leukocyte esterase [Presence] in Urine by Test stripNegativeLakehealth Tripoint Medical CenterLeukocyte esterase Test strip Ql (U)NegativeNormalNegative [facility] CenterComment on above:Order Comment: Name Collection Type:: Clean-Voided MidstreamPerformed By: #### UA #### [facility] [address] [place] [address] USALeukocytes [#/volume] corrected for nucleated erythrocytes in Blood by Automated counOrdered By: Maru Hayes on 88-36-7696MNH corrected for nucl RBC Auto (Bld) [#/Vol]Leukocytes [#/volume] corrected for nucleated erythrocytes in Blood by Automated counHigh4.1-10.5FBarnesville HospitalWBC corrected for nucl RBC Auto (Bld) [#/Vol]11.2 10*3/uLHigh4.1-10.5 [facility] CenterLeukocytes [#/volume] in Blood by Automated countOrdered By: Maru Hayes on 67-05-5274PDR (Bld) [#/Vol]11.2 10*3/uLHigh 4.1-10.5FBarnesville HospitalComment on above:Performed By: #### MG, SCAN CBC, CMP #### [facility] [address] [place] [id number] USALipase [Enzymatic activity/volume] in Serum or Plasma Ordered By: Maru Hayes on 45-67-8396Xtaugl [Catalytic activity/Vol]Lipase [Enzymatic activity/volume] in Serum or Jrchgn40.0-82.0[facility] Medical CenterLipase [Catalytic activity/Vol]34.0 U/ZUmhmnm74.0-82.0[facility] CenterComment on above:Result Comment: PERFORMED BY: [place] [address] PATHOLOGIST ADVERTISING REPRESENTATIVE HEBER SHANNON M.D.Performed By: #### MG, SCAN CBC, CMP #### [facility] [address] [place] [id number] USALymphocytes Auto (Bld) [#/Vol]Ordered By: Maru Hayes on 46-90-2921Cvejmzpllfd (Bld) [#/Vol]Lymphocytes [#/volume] in Blood by Automated count1.00-4.8[facility] Medical CenterLymphocytes [#/volume] in Blood by Automated countOrdered By: Maru Hayes on 42-19-4486Aakgigwqyxi (Bld) [#/Vol]2.8 10*3/uLNormal1.00-4.8[facility] Medical CenterComment on above:Performed By: #### MG, SCAN CBC, CMP #### [facility] [address] [place] [id number] USALymphocytes/100 WBC Auto (Bld)Ordered By: Maru Hayes on 75-08-1238Lpyowuujzmk/100 WBC (Bld)Lymphocytes/100 leukocytes in Blood by Automated count.[facility] Medical CenterLymphocytes/100 leukocytes in Blood by Automated countOrdered By: Maru Hayes on 19-77-6117Qmehygypcwu/100 WBC (Bld)24.8 %Normal.[facility] Medical CenterComment on above: Performed By: #### MG, SCAN CBC, CMP #### [facility] [address] [place] [id number] [facility] Auto (RBC) [Entitic mass]Ordered By: Maru Hayes on 32-17-9676PLH (RBC) [Entitic mass]MCH [Entitic mass] by Automated count27.5-35.2 [facility] [Entitic mass] by Automated countOrdered By: Maru Hayes on 49-55-1466ZLT (RBC) [Entitic mass]30.5 jrHppwvm55.5-35.2 [facility] CenterComment on above:Performed By: #### MG, SCAN CBC, CMP #### [facility] [address] [place] [id number] [facility] Auto (RBC) [Mass/Vol]Ordered By: Maru Hayes on 31-95-3376GLSQ (RBC) [Mass/Vol]MCHC [Mass/volume] by Automated count32.5-35.6 [facility] CenterMCHC (RBC) [Mass/Vol]33.3 g/dL32.5-35.6 [facility] CenterMCV Auto (RBC) [Entitic vol]Ordered By: Maru Hayes on 14-72-5222MUR (RBC) [Entitic vol]MCV [Entitic volume] by Automated count83.5-[address] [place], [place] [address]MCV [Entitic volume] by Automated countOrdered By: Maru Hayes on 72-99-5621ONG (RBC) [Entitic vol]91.[address] [place], [place] [address]Comment on above:Performed By: #### MG, SCAN CBC, CMP #### [address]Monocyte distribution width [Entitic volume] in Blood by AutomatedOrdered By: Maru Hayes on 45-60-3930Jtdlkbzu distribution width Auto (Bld) [Entitic vol]Monocyte distribution width [Entitic volume] in Blood by AutomatedHigh0.00-20.00[facility] Medical CenterComment on above:For adults in ED, MDW > 20.0 may be associated with a higher risk of sepsis during the first 12 hrs of hospital admissionMonocyte distribution width Auto (Bld) [Entitic vol]22.62 %High0.00-20.00[facility] Medical CenterComment on above:For adults in ED, MDW > 20.0 may be associated with a higher risk of sepsis during the first 12 hrs of hospital admissionMonocytes Auto (Bld) [#/Vol] Ordered By: Maru Hayes on 88-43-9224Znpwzgnri (Bld) [#/Vol]Automated blood monocyte count0.0-0.8[facility] Medical CenterMonocytes [#/volume] in Blood by Automated countOrdered By: Maru Hayes on 83-32-4343Dvdtkglah (Bld) [#/Vol]0.8 10*3/uLNormal0.0-0.8[facility] Medical CenterComment on above:Performed By: #### MG, SCAN CBC, CMP #### [facility] [address] [place] [address] USAMonocytes/100 WBC Auto (Bld)Ordered By: Maru Hayes on 70-15-1197Xqqfknjmf/100 WBC (Bld)Automated monocyte %.[facility] CenterMonocytes/100 leukocytes in Blood by Automated countOrdered By: Maru Hayes on 16-75-3128Bjzeihvkx/100 WBC (Bld)7.2 %Normal.[facility] Medical CenterComment on above:Performed By: #### MG, SCAN CBC, CMP #### [facility] [address] [place] [id number] USANeutrophils Auto (Bld) [#/Vol]Ordered By: Maru Hayes on 54-30-8421Kcrdmgaqtnt (Bld) [#/Vol]Neutrophils [#/volume] in Blood by Automated count1.8-7.7FBarnesville HospitalNeutrophils [#/volume] in Blood by Automated countOrdered By: Maru Hayes on 22-61-2166Wqntljzpuxb (Bld) [#/Vol]7.2 10*3/uLNormal1.8-7.7FBarnesville HospitalComment on above:Performed By: #### MG, SCAN CBC, CMP #### [facility] [address] [place] [address] USANeutrophils/100 WBC Auto (Bld)Ordered By: Maru Hayes on 11-14-2999Kksdxunjjuo/100 WBC (Bld)Automated neutrophil %.[facility] Medical CenterNeutrophils/100 leukocytes in Blood by Automated countOrdered By: Maru Hayes on 70-61-8491Nsutjwpfuhn/100 WBC (Bld)64.3 %Normal.[facility] Medical CenterComment on above:Performed By: #### MG, SCAN CBC, CMP #### [facility] [address] [place] [id number] USANitrite Test strip Ql (U)Ordered By: Maru Hayes on 09-01-6645Yhvgdbh Ql (U)Nitrite [Presence] in Urine by Test stripNegative [facility] CenterNitrite Ql (U)NegativeNegativeLakehealth Tripoint Medical CenterNo Panel InformationOrdered By: Maru Hayes on 10-50-3057Knssdpoyj GFR (CKD-EPI)> 60.0 mL/MinLakehealth Tripoint Medical Center Pharmacy Creatinine Clearance (Chem59.79[facility] Nucleated erythrocytes [Presence] in Blood by Automated countOrdered By: Maru Hayes on 89-39-1997Gpkaltwpv RBC Auto Ql (Bld)Nucleated erythrocytes [Presence] in Blood by Automated count0-0.5FBarnesville Hospital Nucleated RBC Auto Ql (Bld)0.0 /100{WBC}0-0.5FBarnesville Hospital Platelet mean volume Auto (Bld) [Entitic vol]Ordered By: Maru Hayes on 82-91-2743Lazrxwxa mean volume (Bld) [Entitic vol]Platelet mean volume [Entitic volume] in Blood by Automated count6.6-10.1FBarnesville Hospital Platelet mean volume [Entitic volume] in Blood by Automated countOrdered By: Maru Hayes on 38-14-3286Vevkfeuv mean volume (Bld) [Entitic vol]8.3 fLNormal 6.6-10.1FBarnesville HospitalComment on above:Performed By: #### MG, SCAN CBC, CMP #### [facility] [address] [place] [address] USAPlatelets Auto (Bld) [#/Vol]Ordered By: Maru Hayes on 94-58-9176Kwfbxfezw (Bld) [#/Vol]Platelets [#/volume] in Blood by Automated zjvyy614-924GzabdpxzlLakehealth Tripoint Medical CenterPlatelets [#/volume] in Blood by Automated countOrdered By: Maru Hayes on 23-64-7550Dgsgrdezb (Bld) [#/Vol] 226 10*3/wAAnczeo927-905BkyramawwLakehealth Tripoint Medical CenterComment on above: Performed By: #### MG, SCAN CBC, CMP #### [facility] [address] [place] [address] USAPopulation Healthon 63-33-3212ZpmmrraartFormerly [facility] Case Information Case Priority: None Programs: -- Referral Source: Supervisor [employer] Referral Reason: Care coordination Case Type: Transition [...] to opioid therapy 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 Patient denies any further questions or concerns. Communication Events Date: September 20, 2024 Method: Phone call Type: Outbound Duration (min): 3 Outcome: Case discussion Contact Type: Patient Contact Name: B (more content not included)...NormalMarion HospitalPotassium [Moles/volume] in Serum or PlasmaOrdered By: Maru Hayes on 04-20-3610Ofundrstr [Moles/Vol]Potassium [Moles/volume] in Serum or Plasma3.5-5.1FBarnesville Hospital Potassium [Moles/Vol]4.0 mmol/LNormal3.5-5.1FBarnesville Hospital Comment on above:Performed By: #### , SCAN CBC, CMP #### [facility] [address] [place] [address] USAProtein Test strip (U) [Mass/Vol]Ordered By: Maru Hayes on 54-79-6170Kkxigau (U) [Mass/Vol]Protein [Mass/volume] in Urine by Test stripNegativeLakehealth Tripoint Medical CenterProtein (U) [Mass/Vol] NegativeNegativeLakehealth Tripoint Medical CenterProtein [Mass/volume] in Serum or PlasmaOrdered By: Maru Hyaes on 26-94-0821Oqcsmmv [Mass/Vol]Protein [Mass/volume] in Serum or Plasma6.4-8.9[facility] Medical CenterProtein [Mass/Vol]6.4 g/dLNormal6.4-8.9[facility] Medical CenterComment on above:Performed By: #### MG, SCAN CBC, CMP #### [facility] [address] [place] [id number] USARBC Auto (Bld) [#/Vol]Ordered By: Maru Hayes on 84-79-5810JHJ (Bld) [#/Vol]Erythrocytes [#/volume] in Blood by Automated count Low3.90-5.60Barnesville Hospitalerum globulin measurement by calculation (mass/volume)Ordered By: Maru Hayes on 07-80-7172Vuwycikz (S) [Mass/Vol]2.9 g/dLNormalLakehealth Tripoint Medical CenterComment on above: Performed By: #### MG, SCAN CBC, CMP #### [facility] [address] [place] [address] USASerum or plasma albumin/globulin mass ratioOrdered By: Maru Hayes on 00-94-4810Zyvjidz/Globulin [Mass ratio]Serum or plasma albumin/globulin mass ratioLakehealth Tripoint Medical CenterAlbumin/Globulin [Mass ratio]1.2 {ratio}NormalLakehealth Tripoint Medical CenterComment on above: Performed By: #### MG, SCAN CBC, CMP #### [facility] [address] [place] [address] USASerum or plasma anion gap determinationOrdered By: Maru Hayes on 19-48-0014Zgexl gap [Moles/Vol]Serum or plasma anion gap determination6.0-15.0[facility] Medical CenterAnion gap [Moles/Vol]10.2 mmol/LNormal6.0-15.0[facility] CenterComment on above:Performed By: #### MG, SCAN CBC, CMP #### [facility] [address] [place] [address] USASerum or plasma non-glucuronidated bilirubin measurement (mass/volume)Ordered By: Maru Hayes on 33-64-5355Vdvufhagp.indirect [Mass/Vol]Serum or plasma non-glucuronidated bilirubin measurement (mass/volume) [facility] Medical CenterBilirubin.indirect [Mass/Vol]0.4 mg/dLBarnesville Hospitalodium [Moles/volume] in Serum or PlasmaOrdered By: Maru Hayes on 62-26-0917Mhgbhv [Moles/Vol]Sodium [Moles/volume] in Serum or Ehxrrj984-576OozgrdfdpBarnesville Hospitalodium [Moles/Vol]137 mmol/LNormal 136-145[facility] Medical CenterComment on above:Performed By: #### MG, SCAN CBC, CMP #### [facility] [address] [place] [id number] USASpecific gravity Test strip (U) [Rel density]Ordered By: Maru Hayes on 09-22-4833Dffzoarx gravity (U) [Rel density]Specific gravity of Urine by Test stripHigh1.001-1.030Barnesville Hospitalpecific gravity (U) [Rel density]1.408Kwdz4.001-1.030[facility] Troponin I High Sensitivityon 95-67-0185Wbgmhjvv I High Vuloldyzwtm6Nrekiu3-92 [facility] Physician GroupComment on above:Result Comment: The Troponin units of report have been changed to meet the Chest Pain Accreditation requirement, element EC5.M1l2. Troponin units are changed from pg/ml to ng/L. Also, the decimal is removed and results are in whole numbers. PERFORMED BY: [address] [place] [address] PATHOLOGIST ADVERTISING REPRESENTATIVE HEBER SHANNON M.D.Performed By: #### HS TROP #### [place] [id number] USATroponin I.cardiac [Mass/volume] in Serum or Plasma by Detection limit <= 0.01 ng/Ordered By: Maru Hayes on 01-32-4894Jxjofvtc I.cardiac DL <= 0.01 ng/mL [Mass/Vol]Troponin I.cardiac [Mass/volume] in Serum or Plasma by Detection limit <= 0.01 ng/0-[address] [place] [address] Comment on above:The Troponin units of report have been changed to meet the Chest Pain Accreditation requirement, element EC5.M1l2. Troponin units are changed from pg/ml to ng/L. Also, the decimal is removed and results are in whole numbers.Troponin I.cardiac [Mass/volume] in Serum or Plasma by Detection limit <= 0.01 ng/mLOrdered By: Maru Hayes on 31-13-9586Atlwgyct I.cardiac DL <= 0.01 ng/mL [Mass/Vol]7 ng/L0L[facility] Medical CenterComment on above:The Troponin units of report have been changed to meet the Chest Pain Accreditation requirement, element EC5.M1l2. Troponin units are changed from pg/ml to ng/L. Also, the decimal is removed and results are in whole numbers. Urea nitrogen [Mass/volume] in Serum or PlasmaOrdered By: Maru Hayes on 56-60-6602Vcmk nitrogen [Mass/Vol]Urea nitrogen [Mass/volume] in Serum or Plasma 12-08[facility] Medical CenterUrea nitrogen [Mass/Vol]20 mg/dLNormal12-08 [facility] Medical CenterComment on above:Performed By: #### MG, SCAN CBC, CMP #### [place] [id number] USAUrinalysison 54-01-6840Tursmexqt,UrineNegativeNormal NegativeThe [facility] Hospitals Of [facility] Carolina Physician GroupComment on above:Order Comment: Name Collection Type:: Clean-Voided MidstreamPerformed By: #### UA #### [place] [address] USAGlucose Ql (U)NormalNormalNormalThe [facility] Physician GroupComment on above:Order Comment: Name Collection Type:: Clean-Voided MidstreamPerformed By: #### UA #### [place] [address] USANitrite,UrineNegativeNormalNegativeNaval Hospital Jacksonville Physician GroupComment on above:Order Comment: Name Collection Type:: Clean-Voided MidstreamPerformed By: #### UA #### [place] [id number] USAOccult Blood,UrineNegativeNormalNegativeThe [facility] Physician GroupComment on above:Order Comment: Name Collection Type:: Clean- Voided MidstreamResult Comment: PERFORMED BY: [place] [address] PATHOLOGIST ADVERTISING REPRESENTATIVE HEBER SHANNON M.D.Performed By: #### UA #### [place] [address] USAProtein,UrineNegativeNormalNegativeThe [facility] Physician GroupComment on above:Order Comment: Name Collection Type:: Clean-Voided MidstreamPerformed By: #### UA #### [facility] [address] [place] [address] USASpecificy Beason,Urine1.739Actx0.001-1.030The [facility] Physician GroupComment on above:Order Comment: Name Collection Type:: Clean- Voided MidstreamPerformed By: #### UA #### [facility] [address] [place] [id number] USAUrobilinogen,UrineNormalNormalNormalThe [facility] Physician GroupComment on above:Order Comment: Name Collection Type:: Clean- Voided MidstreamPerformed By: #### UA #### [facility] [address] [place] [id number] USAUrobilinogen Test strip (U) [Mass/Vol]Ordered By: Maru Hayes on 44-86-7840Jasijuxilres (U) [Mass/Vol]Urobilinogen [Mass/volume] in Urine by Test stripNoMemorial HospitalUrobilinogen (U) [Mass/Vol]Normal mg/dLNoMemorial HospitalWBC Auto (Bld) [#/Vol]Ordered By: Maru Hayes on 63-94-4427SFK (Bld) [#/Vol]Leukocytes [#/volume] in Blood by Automated countHigh4.1-10.5FBarnesville HospitalpH Test strip (U)Ordered By: Maru Hayes on 02-14-4723iZ (U)pH of Urine by Test strip5.0-9.0[facility] Medical CenterpH of Urine by Test strip Ordered By: Maru Hayes on 20-17-6055cQ (U)5.0 [pH]Normal5.0-9.0Lake[facility] Tripoint Medical CenterComment on above:Order Comment: Name Collection Type:: Clean-Voided MidstreamPerformed By: #### UA #### [facility] [address] [place] [address] USAAmbulatory Visit Summaryon 70-61-2872Utnojzfebt Visit SummaryAmbulatory Visit Summary JEREMIE BENNETT :1940 [...] Film) fluticasone nasal (fluticasone Nasal 0.05 mg/inh [place]) furosemide (furosemide 20 mg Tab) irbesartan (irbesartan [...] PM EDT With: Demetrius Cooper MD Where: [address] [id number]- Wednesday 2:30 PM EDT With: Where: [address] [id number]- Wednesday 3:20 PM EDT With: Demetrius Cooper MD Where: [address] [phone]- Medications What How Much When Instructions Unchanged [...] fluticasone nasal (fluticasone Nasal 0.05 mg/ inh [place]) See instructions USE 1 SPRAY IN BOTH [...] Cancer associated pain Cervic (more content not included)...[facility] Medicine Office/Clinic Noteon 16-71-9743Ejmjjz Medicine Office/Clinic NoteFaaddison gil[facility] Medicine Office/Clinic Note Chief Complaint ACute Visit [...] to opioid therapy 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 [...] patch(es), Topical, q72hr fluticasone Nasal 0.05 mg/inh [place], See Instructions furosemide 20 mg Tab, 20 [...] mg= 1 tab(s), Oral, Daily Potassium Chloride (Fii-Xznu-Zve M20) 20 mEq oral tablet, extended release [...] Patient states magic peggy (more content not included)...[facility] HospitalC Urineon 51-67-9425Wqwljamz identified Cx Nom (U)Microbiology PROCEDURE: Urine Culture [R1] SOURCE: U Random BODY SITE: COLLECTED DATE/TIME: 08/30/2024 10:11 EDT RECEIVED DATE/TIME: 08/30/2024 18:09 EDT START DATE/TIME: 08/30/2024 18:09 EDT FREE TEXT SOURCE: Yajaira Dunn, Yajaira Knox FINAL REPORTS Final Report [] Verified Date/Time: 09/01/2024 10:22 EDT 200 cfu/ml Mixed skin contaminants Performing Locations R1: This test was performed at: [facility], [address] [place] [address], [facility] , , MksgxrCcbsqmSt. Anthony's HospitalComment on above:Performed By: #### [id number] #### [facility] [address] [place] [id number] Visit Summaryon 03-87-4784Tafoubznwq Visit Summary Ambulatory Visit Summary JEREMIE BENNETT [...] Film) fluticasone nasal (fluticasone Nasal 0.05 mg/inh [place]) furosemide (furosemide 20 mg Tab) irbesartan (irbesartan [...] mL oral solution) potassium chloride (Potassium Chloride (Uvk-Zkek-Rpy M20) 20 mEq oral tablet, extended release) [...] Appointments Wednesday 2:30 PM EDT With: Where: [address] [id number]- Wednesday 3:20 PM EDT With: Hermes CASON, Demetrius Rosa Where: [address] [phone]- Medications What How Much When Instructions Unchanged [...] fluticasone nasal (fluticasone Nasal 0.05 mg/ inh [place]) See instructions USE 1 SPRAY IN BOTH [...] DAILY Unchanged ondansetron (onda (more content not included)...[facility] Medicine Office/Clinic Noteon 98-35-9707Wepiqg Medicine Office/Clinic NoteSaugus [facility] Office/Clinic Note Chief Complaint Acute Visit [...] Urnls Dip Stick Auto w/o Microscopy POC 89363 2. 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 [...] patch(es), Topical, q72hr fluticasone Nasal 0.05 mg/inh [place], See Instructions furosemide 20 mg Tab, 20 [...] Daily Potassium Chloride (Eq (more content not included)...[facility] HospitalComment on above:Result Comment: Electronically Signed By: Yajaira Dunn\.br\Date and Time Signed: 08/30/24 10:45 EDTFmercyone [facility] Medicine Office/Clinic Noteon 50-30-2762Vxzedt Medicine Office/Clinic NoteFamily Medicine Office/Clinic Note Chief Complaint TCM follow up The patient presents with concerns related to chemotherapy and radiation treatment for oropharyngeal carcinoma. HPI Staff Pt presents today for TCM follow up Hospital: [facility] Visit date: 08/19/24 Symptoms the [...] BP <130 mm Hg (Most Recent) 3074F [facility] Trans care mgmt 7 day disch [id number] 2. Aspiration pneumonia (J69.0: Pneumonitis due to inhalation of food and vomit) Patient improved after antibiotic treatment for aspiration pneumonia. Monitor respiratory status and nutritional challenges affecting swallowing. Ordered: Cardiac Rehab - Ambulatory Referral TCM Trans care mgmt 7 day disch [id number] 3. 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 Plan imaging for therapy assessment within three months. Focus on resolving sore throat impacting nutrition. Ordered: Cardiac Rehab - Ambulatory Referral TCM Trans care mgmt 7 day disch 28842 4. 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 Schedule appropriate follow- up tests to monitoroncologic treatment outcomes. Ordered: Cardiac Rehab - Ambulatory Referral TCM Trans care mgmt 7 day disch 56515 5. Immunosuppression (D84.9: Immunodeficiency, unspecified) Continue to see oncology Ordered: Cardiac Rehab - Ambulatory Referral TCM Trans care mgmt 7 day disch 60433 6. 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 Evaluate non-opioid pain relief methods if feasible. Ordered: TCM Trans care mgmt 7 day disch 45493 7. Nausea (R11.0: Nausea) NO issues at this time. Ordered: TCM Trans care mgmt 7 day disch 54154 8. BMI 27.0-27.9,adult (Z68.27: Body mass index [BMI] 27.0-27.9, adult) BMI education adde (more content not included)...[facility] HospitalComment on above:Result Comment: Electronically Signed By: Demetrius Cooper MD\.br\Date and Time Signed: 08/24/24 09:00 EDTPre-Visit Planningon 08-24-2024 Pre-Visit PlanningPre-Visit Planning From: Bobbi Hall To: Demetrius Cooper MD; Sent: 08/23/2024 16:27:25 EDT Subject: Pre-Visit Planning Due Date/Time: 08/23/2024 16:27:00 EDT Caller Name: JEREMIE BENNETT; Caller Number: , La Dr. Cooper. During a pre-visit planning chart [...] feel free to contact me at extension [phone]. Thank you! Bobbi Hall LPN Clinical Geophysical Engineer [place] [address] Extension: [phone] [email or web address] From: Demetrius Cooper MD To: Bobbi Hall; Sent: 08/24/2024 11:34:18 EDT Subject: RE: Pre-Visit Planning Caller Name: GINNY JEREMIE Annabelle; Caller Number: H , [facility] Case Information Case Priority: None Programs: -- Referral Source: Supervisor [employer] Referral Reason: Care coordination Case Type: Transition Care Management Risk Score: -- Case Status: Enrolled (August 22, 2024) Date Assigned: August 22, 2024 Assigned By: Galileo Tucker Date Enrolled: August 22, 2024 Assigned Primary Personnel: Galileo Tucker Assigned Secondary Personnel: -- Case Physician: Demetrius Cooper MD Problems Ongoing Bloating BMI 29.0-29.9,adult Cervical lymphadenopathy Cervical spondylosis Chronic GERD 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 [...] patch(es), Topical, q72hr fluticasone Nasal 0.05 mg/inh [place], See Instructions furosemide 20 mg Tab, 20 [...] Care Plan Progress Note Admit Date: 08/20/24 [facility] Date of Discharge: 08/21/24 Follow-up [...] difficult to swallow Ar (more content not included)...[facility] HospitalAlanine aminotransferase [Enzymatic activity/volume] in Serum or PlasmaOrdered By: Jaiden Nance on 01-70-5019CNA [Catalytic activity/Vol]Alanine aminotransferase [Enzymatic activity/volume] in Serum or Plasma7-52L[facility] Medical CenterAlbumin [Mass/volume] in Serum or Plasma by Bromocresol green (BCG) dye binding methoOrdered By: Jaiden Nance on 63-81-7391Hfpgsnl BCG dye [Mass/Vol] Albumin [Mass/volume] in Serum or Plasma by Bromocresol green (BCG) dye binding methoLow3.5-5.7FBarnesville HospitalAlkaline phosphatase [Enzymatic activity/volume] in Serum or PlasmaOrdered By: Jaiden Nance on 71-91-9421JHT [Catalytic activity/Vol]Alkaline phosphatase [Enzymatic activity/volume] in Serum or Arqkap32-932VdbzvpnerLakehealth Tripoint Medical CenterAspartate aminotransferase [Enzymatic activity/volume] in Serum or PlasmaOrdered By: Jaiden Nance on 36-85-2669LSB [Catalytic activity/Vol]Aspartate aminotransferase [Enzymatic activity/volume] in Serum or Odiigy81-02OrxyzqqxwLakehealth Tripoint Medical Center Basophils Auto (Bld) [#/Vol]Ordered By: Jaiden Nance on 65-08-2665Mzvzpnrsl (Bld) [#/Vol]Automated basophil count0.0-0.2FBarnesville Hospital Basophils/100 WBC Auto (Bld)Ordered By: Jaiden Nance on 27-36-4806Tjtptqskw/100 WBC (Bld)Automated basophil %.L[facility] Tripoint Medical CenterBilirubin.total [Mass/volume] in Serum or PlasmaOrdered By: Jaiden Nance on 23-83-2153Pnkasvmqa [Mass/Vol]Bilirubin.total [Mass/volume] in Serum or Plasma0.3-1.0[facility] Medical CenterCT chest wo conon 64-99-4417VJ chest wo [facility] Main [address] [address] [address] Scan Report Signed Patient: Jeremie Bennett MR#: [id number] : 1940 Acct:[id number] Age/Sex: 83 / M ADM Date: 08/20/24 Loc: Room: [address] [place] [address] Type: ADM IN Attending Dr: Jaiden Nance [...] Christian Melton M.D.08/21/2024 5:58 AM Dictation Location: [place] [address] Transcribed By: [facility] 08/21/24 0558 Dictated By: Christian Melton DO 08/21/24 0555 Signed By: 08/21/24 0558[facility] Physician GroupCalcium [Mass/volume] in Serum or PlasmaOrdered By: Jaiden Nance on 51-35-5043Xjihdor [Mass/Vol]Calcium [Mass/volume] in Serum or PlasmaLow8.6-10.3FBarnesville Hospital Carbon dioxide, total [Moles/volume] in Serum or PlasmaOrdered By: Jaiden Nance on 50-39-8448YP3 [Moles/Vol]Carbon dioxide, total [Moles/volume] in Serum or Qwftpf52.0-31.0L[facility] Medical CenterChloride [Moles/volume] in Serum or PlasmaOrdered By: Jaiden Nance on 31-95-9905Woycjnpi [Moles/Vol]Chloride [Moles/volume] in Serum or TnzwgvAiyt80-471XqorzjiryLakehealth Tripoint Medical Center Complete Blood Count Auto Diffon 61-16-7891Axxyjqoud (Bld) [#/Vol]0.0 10*3/uL Normal0.0-0.2The [facility] Physician GroupComment on above:Result Comment: PERFORMED BY: [place] [address] PATHOLOGIST ADVERTISING REPRESENTATIVE HEBER SHANNON M.D.Performed By: #### UA #### [facility] [address] [place] [address] USABasophils/100 WBC (Bld)0.6 %Normal.The [facility] Physician GroupComment on above:Performed By: #### UA #### [facility] [address] [place] [address] USAEosinophils (Bld) [#/Vol]0.1 10*3/uLNormal0.0-0.45The [facility] Physician GroupComment on above:Performed By: #### UA #### [place] [address] USAEosinophils/100 WBC (Bld)1.0 %Normal.The [facility] Physician GroupComment on above:Performed By: #### UA #### [facility] [address] [place] [address] USAErythrocyte distribution width (RBC) [Ratio]14.8 %Normal 12.0-14.8The [facility] Physician GroupComment on above:Performed By: #### UA #### [facility] [address] [place] [address] USAHematocrit (Bld) [Volume fraction]30.5 %Low38.8-50.0The [facility] Physician GroupComment on above:Performed By: #### UA #### [facility] [address] [place] [address] USAHemoglobin (Bld) [Mass/Vol]10.4 g/dLLow13.0-17.0The [facility] GroupComment on above:Performed By: #### UA #### [facility] [address] [place] [address] USALymphocytes (Bld) [#/Vol]0.6 10*3/uLLow1.00-4.8The [facility]ician GroupComment on above:Performed By: #### UA #### [facility] [address] [place] [address] USALymphocytes/100 WBC (Bld)9.0 %Normal.The [facility] Physician GroupComment on above:Performed By: #### UA #### [facility] [address] [place] [address] USAMCH (RBC) [Entitic mass]31.3 rmSmbhwu05.5-35.2The [facility] Physician GroupComment on above:Performed By: #### UA #### [facility] [address] [place] [address] USAMCV (RBC) [Entitic vol]91.6 yOBlewkk07.5-101The [facility] Physician GroupComment on above:Performed By: #### UA #### [facility] [address] [place] [address] USAMean Corpuscular HGB Conc34.2 g/qLQwwnlc89.5-35.6The [facility] Physician GroupComment on above:Performed By: #### UA #### [facility] [address] [place] [address] USAMonocytes (Bld) [#/Vol]0.8 10*3/uLNormal0.0-0.8The [facility] GroupComment on above:Performed By: #### UA #### [facility] [address] [place] [id number] USAMonocytes/100 WBC (Bld)13.6 %Normal.The [facility] Physician GroupComment on above:Performed By: #### UA #### [facility] [address] [place] [address] USANeutrophils (Bld) [#/Vol]4.7 10*3/uLNormal1.8-7.7The [facility] GroupComment on above:Performed By: #### UA #### [facility] [address] [place] [id number] USANeutrophils/100 WBC (Bld)75.8 %Normal.The [facility] Physician GroupComment on above:Performed By: #### UA #### [facility] [address] [place] [address] USANRBC%0.1 /100{WBC}Normal0-0.5The [facility] Comment on above:Performed By: #### UA #### [facility] [address] [place] [address] USAPlatelet mean volume (Bld) [Entitic vol]8.2 fLNormal 6.6-10.1The [facility] Physician GroupComment on above:Performed By: #### UA #### [facility] [address] [place] [address] USAPlatelets (Bld) [#/Vol]190 10*3/jVIljuri418-028Oad [facility] Physician GroupComment on above:Performed By: #### UA #### [facility] [address] [place] [address] USARBC (Bld) [#/Vol]3.33 10*6/uLLow3.90-5.60The [facility]ician GroupComment on above:Performed By: #### UA #### [facility] [address] [place] [address] USAWBC (Bld) [#/Vol]6.2 10*3/uLNormal4.1-10.5The [facility] GroupComment on above:Performed By: #### UA #### [facility] [address] [place] [address] USAComprehensive Metabolic Panelon 48-94-8521Jnbgnre [Mass/Vol]2.9 g/dLLow3.5-5.7The [facility] GroupComment on above: Performed By: #### UA #### [facility] [address] [place] [address] USAAlbumin/Globulin [Mass ratio]1.2 {ratio}NormalThe [facility] Physician GroupComment on above:Performed By: #### UA #### [facility] [address] [place] [address] USAALP [Catalytic activity/Vol]52 U/POjbvrn61-747Ldr [facility] Phys[facility] GroupComment on above:Performed By: #### UA #### [facility] [address] [place] [address] USAALT [Catalytic activity/Vol]14 U/LNormal7-52The [facility] Physician GroupComment on above:Performed By: #### UA #### [facility] [address] [place] [address] USAAnion gap [Moles/Vol]9.1 mmol/LNormal6.0-15.0The [facility] Physician GroupComment on above:Performed By: #### UA #### [facility] [address] [place] [address] USAAST [Catalytic activity/Vol]15 U/EMfrdrc32-20Vxq [facility] Physician GroupComment on above:Performed By: #### UA #### [facility] [address] [place] [address] USABilirubin [Mass/Vol]0.6 mg/dLNormal0.3-1.0The [facility] Physician GroupComment on above:Performed By: #### UA #### [facility] [address] [place] [address] USACalcium [Mass/Vol]8.2 mg/dLLow8.6-10.3The [facility] GroupComment on above:Performed By: #### UA #### [facility] [address] [place] [address] USAChloride [Moles/Vol]108 mmol/QJqac79-046Tqa [facility] Physician GroupComment on above:Performed By: #### UA #### [address] [place] [address] USACO2 [Moles/Vol]24.2 mmol/CRzhhms96.0-31.0The [facility] Physician GroupComment on above:Performed By: #### UA #### [place] [address] USACreatinine [Mass/Vol]0.75 mg/dLNormal0.70-1.30The [facility] Physician GroupComment on above:Performed By: #### UA #### [place] [address] USACreatinine Clr Calc Keabkxcm93.79NormalThe [facility] Physician GroupComment on above:Performed By: #### UA #### [place] [address] USAGFR/1.73 sq M.predicted MDRD (S/P/Bld) [Vol rate/Area] mL/min/{1.73_m2}NormalThe [facility] Physician GroupComment on above:Performed By: #### UA #### [place] [address] USAGlobulin (S) [Mass/Vol]2.4 g/dLNormalThe [facility] Physician GroupComment on above:Performed By: #### UA #### [place] [address] USAGlucose [Mass/Vol]94 mg/sJQwshyx74-895Wzs [facility] Physician GroupComment on above:Result Comment: Random Glucose Reference Range is dependent on time and content of last meal. Glucose of more than 200 mg/dL in a nonstressed, ambulatory subject supports the diagnosis of Diabetes Mellitus. ADA recommended reference rangePerformed By: #### UA #### [place] [address] USAPotassium [Moles/Vol]3.3 mmol/LLow3.5-5.1The [facility] Physician GroupComment on above:Performed By: #### UA #### [place] [address] USAProtein [Mass/Vol]5.3 g/dLLow6.4-8.9The [facility] Physician GroupComment on above:Performed By: #### UA #### [facility] [address] [place] [address] USASodium [Moles/Vol]138 mmol/DZnwoaw850-139Tpt [facility] Physician GroupComment on above:Performed By: #### UA #### [facility] [address] [place] [address] USAUrea nitrogen [Mass/Vol]10 mg/dLNormal7-25The [facility] Physician GroupComment on above:Performed By: #### UA #### [facility] [address] [place] [address] USACreatinine [Mass/volume] in Serum or PlasmaOrdered By: Jaiden Nance on 99-61-9971Xqkpeknwib [Mass/Vol]Creatinine [Mass/volume] in Serum or Plasma0.70-1.30[facility] Medical CenterEosinophils Auto (Bld) [#/Vol]Ordered By: Jaiden Nance on 60-25-2699Qhjrvjxbxld (Bld) [#/Vol]Automated eosinophil count0.0-0.45[facility] Medical CenterEosinophils/100 WBC Auto (Bld)Ordered By: Jaiden Nance on 66-57-0203Paxoqmfzuux/100 WBC (Bld) Automated eosinophil %.[facility] Medical CenterErythrocyte distribution width Auto (RBC) [Ratio]Ordered By: Jaiden Nance on 32-03-4033Vvkmkqymsou distribution width (RBC) [Ratio]Erythrocyte distribution width [Ratio] by Automated count12.0-14.8[facility] Medical CenterGlobulin Calc (S) [Mass/Vol]Ordered By: Jaiden Nance on 53-57-6955Yvtopfjf (S) [Mass/Vol]Serum globulin measurement by calculation (mass/volume)[facility] CenterGlucose [Mass/volume] in Serum or PlasmaOrdered By: Jaiden Nance on 00-36-1171Qmmnghm [Mass/Vol]Glucose [Mass/volume] in Serum or Wxlsad03-069 [facility] CenterComment on above:ADA recommended reference rangeRandom Glucose Reference Range is dependent on time and content of last meal. Glucose of more than 200 mg/dL in a nonstressed, ambulatory subject supports the diagnosisof Diabetes Mellitus.Hematocrit Auto (Bld) [Volume fraction]Ordered By: Jaiden Nance on 96-53-4134Mnvheukbnz (Bld) [Volume fraction]Hematocrit [Volume Fraction] of Blood by Automated ghutwWbz12.8-50.0 [facility] CenterHemoglobin [Mass/volume] in BloodOrdered By: Jaiden Nance on 04-52-0710Xwevzgkqft (Bld) [Mass/Vol]Hemoglobin [Mass/volume] in NjeuyBsm68.0-17.0[facility] Medical CenterLeukocytes [#/volume] corrected for nucleated erythrocytes in Blood by Automated counOrdered By: Jaiden Nance on 24-02-9916JTJ corrected for nucl RBC Auto (Bld) [#/Vol] Leukocytes [#/volume] corrected for nucleated erythrocytes in Blood by Automated coun4.1-10.5FBarnesville HospitalLymphocytes Auto (Bld) [#/Vol] Ordered By: Jaiden Nance on 95-28-4612Clbehdualdv (Bld) [#/Vol]Lymphocytes [#/volume] in Blood by Automated countLow1.00-4.8[facility] Medical CenterLymphocytes/100 WBC Auto (Bld)Ordered By: Jaiden Nance on 08-21-2024 Lymphocytes/100 WBC (Bld)Lymphocytes/100 leukocytes in Blood by Automated count. [facility] CenterMCH Auto (RBC) [Entitic mass]Ordered By: Jaiden Nance on 85-15-6551HSP (RBC) [Entitic mass]MCH [Entitic mass] by Automated count27.5-35.2FBarnesville HospitalMCHC Auto (RBC) [Mass/Vol]Ordered By: Jaiden Nance on 10-60-9383ZUJX (RBC) [Mass/Vol]MCHC [Mass/volume] by Automated count32.5-35.6FOhioHealth Grant Medical CenterV Auto (RBC) [Entitic vol]Ordered By: Jaiden Nance on 94-13-4411RLX (RBC) [Entitic vol]MCV [Entitic volume] by Automated count83.5-101[facility] Medical CenterMagnesiumon 70-65-0754Cfqtxncop [Mass/Vol]1.8 mg/dLLow1.9-2.7The [facility] Physician GroupComment on above:Result Comment: PERFORMED BY: [facility] [address] [place] [id number] PATHOLOGIST ADVERTISING REPRESENTATIVE HEBER SHANNON M.D.Performed By: #### UA #### [facility] [address] [place] [address] USAMagnesium [Mass/volume] in Serum or PlasmaOrdered By: Jaiden Nance on 94-43-1720Vvsulofxc [Mass/Vol]Magnesium [Mass/volume] in Serum or PlasmaLow1.9-2.7FBarnesville HospitalMonocytes Auto (Bld) [#/Vol] Ordered By: Jaiden Nance on 90-99-2522Hijisnjfd (Bld) [#/Vol]Automated blood monocyte count0.0-0.8[facility] Medical CenterMonocytes/100 WBC Auto (Bld)Ordered By: Jaiden Nance on 29-26-9481Gxccsqhlf/100 WBC (Bld)Automated monocyte %.[facility] Medical CenterNeutrophils Auto (Bld) [#/Vol] Ordered By: Jaiden Nance on 30-72-4312Kzrwrkknhna (Bld) [#/Vol]Neutrophils [#/volume] in Blood by Automated count1.8-7.7FBarnesville Hospital Neutrophils/100 WBC Auto (Bld)Ordered By: Jaiden Nance on 08-21-2024 Neutrophils/100 WBC (Bld)Automated neutrophil %.[facility] CenterNo Panel InformationOrdered By: Jaiden Nance on 16-73-5628Yiyqyvmgf GFR (CKD-EPI)> 60.0 mL/MinLakehealth Tripoint Medical CenterPharmacy Creatinine Clearance (Chem59.79[facility] Medical CenterNucleated erythrocytes [Presence] in Blood by Automated countOrdered By: Jaiden Nance on 08-21-2024 Nucleated RBC Auto Ql (Bld)Nucleated erythrocytes [Presence] in Blood by Automated count0-0.5FBarnesville HospitalPlatelet mean volume Auto (Bld) [Entitic vol]Ordered By: Jaiden Nance on 52-84-7151Tzfqfwtl mean volume (Bld) [Entitic vol]Platelet mean volume [Entitic volume] in Blood by Automated count6.6-10.1FBarnesville HospitalPlatelets Auto (Bld) [#/Vol] Ordered By: Jaiden Nance on 71-56-2666Trafgfdya (Bld) [#/Vol]Platelets [#/volume] in Blood by Automated zchab895-309VjqiekgdcLakehealth Tripoint Medical Center Potassium [Moles/volume] in Serum or PlasmaOrdered By: Jaiden Nance on 90-59-2886Ebstrdnei [Moles/Vol]Potassium [Moles/volume] in Serum or PlasmaLow 3.5-5.1FBarnesville HospitalProtein [Mass/volume] in Serum or Plasma Ordered By: Jaiden Nance on 89-26-4481Qjakgih [Mass/Vol]Protein [Mass/volume] in Serum or PlasmaLow6.4-8.9L[facility] Medical CenterRBC Auto (Bld) [#/Vol]Ordered By: Jaiden Nance on 65-72-4779DIM (Bld) [#/Vol]Erythrocytes [#/volume] in Blood by Automated countLow3.90-5.60Barnesville Hospitalerum or plasma albumin/globulin mass ratioOrdered By: Jaiden Nance on 31-51-1828Yxxyrty/Globulin [Mass ratio]Serum or plasma albumin/globulin mass ratioBarnesville Hospitalerum or plasma anion gap determination Ordered By: Jaiden Nance on 41-42-4033Tygcg gap [Moles/Vol]Serum or plasma anion gap determination6.0-15.0Barnesville Hospitalodium [Moles/volume] in Serum or PlasmaOrdered By: Jaiden Nance 71-85-6518Ebulrj [Moles/Vol] Sodium [Moles/volume] in Serum or Mjibgz902-121GsomysovfLakehealth Tripoint Medical Center Urea nitrogen [Mass/volume] in Serum or PlasmaOrdered By: Jaiden Nance on 24-74-1402Nany nitrogen [Mass/Vol]Urea nitrogen [Mass/volume] in Serum or Plasma 7-25L[facility] CenterWBC Auto (Bld) [#/Vol]Ordered By: Jaiden Nance on 29-48-7029WCM (Bld) [#/Vol]Leukocytes [#/volume] in Blood by Automated count4.1-10.5FBarnesville HospitalAlanine aminotransferase [Enzymatic activity/volume] in Serum or PlasmaOrdered By: Louie Marrero on 85-08-2231EZC [Catalytic activity/Vol]Alanine aminotransferase [Enzymatic activity/volume] in Serum or Plasma7-52[facility] Medical CenterAlbumin [Mass/volume] in Serum or Plasma by Bromocresol green (BCG) dye binding metho Ordered By: Louie Marrero on 15-80-8484Xxuvjyk BCG dye [Mass/Vol]Albumin [Mass/volume] in Serum or Plasma by Bromocresol green (BCG) dye binding methoLow 3.5-5.7FBarnesville HospitalAlkaline phosphatase [Enzymatic activity/volume] in Serum or PlasmaOrdered By: Louie Marrero on 17-33-6722TYO [Catalytic activity/Vol]Alkaline phosphatase [Enzymatic activity/volume] in Serum or Votpvl32-662VgtzsizhnLakehealth Tripoint Medical CenterAppearance of UrineOrdered By: Louie Marrero on 19-33-3541Bnmqcgxann (U)Urine appearanceCleOhioHealth Riverside Methodist HospitalAspartate aminotransferase [Enzymatic activity/volume] in Serum or PlasmaOrdered By: Louie Marrero on 02-32-0502YAM [Catalytic activity/Vol]Aspartate aminotransferase [Enzymatic activity/volume] in Serum or Afaokn22-02PhwvgnmpxLakehealth Tripoint Medical CenterBasophils Auto (Bld) [#/Vol]Ordered By: Louie Marrero on 64-16-7852Lemtykcsx (Bld) [#/Vol]Automated basophil count 0.0-0.2FBarnesville HospitalBasophils/100 WBC Auto (Bld)Ordered By: Louie Marrero on 17-51-7695Amklwmgtq/100 WBC (Bld)Automated basophil %.[facility] Medical CenterBilirubin Test strip Ql (U)Ordered By: Louie Marrero on 71-44-1261Duqwrasjy Ql (U)Bilirubin.total [Presence] in Urine by Test strip NegativeLakehealth Tripoint Medical CenterBilirubin.total [Mass/volume] in Serum or PlasmaOrdered By: Louie Marrero on 58-50-7873Tmrhhsatq [Mass/Vol] Bilirubin.total [Mass/volume] in Serum or Plasma0.3-1.0[facility] CenterBioFire Not Detectedon 25-37-3486RrdPvhq Not DetectedNot detected NormalNot DetecteThe [facility] Physician GroupComment on above:Result Comment: This is a duplicate RP2.1 COVID (PCR) result to be used for statistical tracking purpose only. PERFORMED BY: [phone] PATHOLOGIST ADVERTISING REPRESENTATIVE HEBER SHANNON M.D.Performed By: #### MG, SCAN CBC, CMP #### [facility] [address] [place] [address] USABlood Cultureon 55-76-2015Vcfdumfg identified Cx Nom (Bld) MISSED X1 PT REFUSED TO LET ME TRY AGAIN RN NORRIS KNOWS NO GROWTH 5 DAYS PERFORMED BY: [place] [phone] PATHOLOGIST ADVERTISING REPRESENTATIVE HEBER SHANNON M.D.NormalThe [facility] Physician GroupComment on above: Performed By: #### ESR #### [facility] [address] [place] [address] USABacteria identified Cx Nom (Bld)right chest NO GROWTH 5 DAYS PERFORMED BY: [place] [phone] PATHOLOGIST ADVERTISING REPRESENTATIVE HEBER SHANNON M.D.NormalNaval Hospital Jacksonville Physician GroupComment on above: Performed By: #### ESR #### [facility] [address] [place] [address] USAC reactive protein [Mass/volume] in Serum or PlasmaOrdered By: Louie Marrero on 04-74-8907JDG [Mass/Vol]C reactive protein [Mass/volume] in Serum or PlasmaHigh0.0-0.5FBarnesville HospitalC-Reactive Protein on 67-25-5313B-Reactive Protein3.3 mg/dLHigh0.0-0.5The [facility] Comment on above:Result Comment: PERFORMED BY: [address] [address] PATHOLOGIST ADVERTISING REPRESENTATIVE HEBER SHANNON M.D.Performed By: #### ESR #### [facility] [address] [place] [address] USACOVID-19 Detected/Not DetectedOrdered By: Louie Marrero on 53-18-8678XAAY-CoV-2 (COVID-19) RNA MICHELLE+non-probe Ql (Nph)Not detectedNot DetectKeenan Private HospitalComment on above:This is a duplicate RP2.1 COVID (PCR) result to be used for statistical tracking purpose only. Calcium [Mass/volume] in Serum or PlasmaOrdered By: Louie Marrero on 08-20-2024 Calcium [Mass/Vol]Calcium [Mass/volume] in Serum or PlasmaLow8.6-10.3FBarnesville HospitalCarbon dioxide, total [Moles/volume] in Serum or Plasma Ordered By: Louie Marrero on 63-03-1921DU1 [Moles/Vol]Carbon dioxide, total [Moles/volume] in Serum or Zuomdw85.0-31.0[facility] Chloride [Moles/volume] in Serum or PlasmaOrdered By: Louie Marrero on 82-93-6135Rrmrdszs [Moles/Vol]Chloride [Moles/volume] in Serum or Gtvcny18-439 [facility] CenterColor Auto (U)Ordered By: Louie Marrero on 55-39-7717Jqesg (U)Color of Urine by AutoYellowLakehealth Tripoint Medical Center Complete Blood Count Auto Diffon 62-52-8090Bryjgxicn (Bld) [#/Vol]0.0 10*3/uL Normal0.0-0.2The [facility] Physician GroupComment on above:Result Comment: PERFORMED BY: [address] [address] PATHOLOGIST ADVERTISING REPRESENTATIVE HEBER SHANNON M.D.Performed By: #### UA #### [facility] [address] [place] [address] USABasophils/100 WBC (Bld)0.5 %Normal.The [facility] Physician GroupComment on above:Performed By: #### UA #### [facility] [address] [place] [address] USAEosinophils (Bld) [#/Vol]0.1 10*3/uLNormal0.0-0.45The [facility] Physician GroupComment on above:Performed By: #### UA #### [facility] [address] [place] [address] USAEosinophils/100 WBC (Bld)0.7 %Normal.The [facility] Physician GroupComment on above:Performed By: #### UA #### [facility] [address] [place] [address] USAErythrocyte distribution width (RBC) [Ratio]14.8 %Normal 12.0-14.8The [facility] Physician GroupComment on above:Performed By: #### UA #### [place] [address] USAHematocrit (Bld) [Volume fraction]34.2 %Low38.8-50.0The [facility] Physician GroupComment on above:Performed By: #### UA #### [place] [address] USAHemoglobin (Bld) [Mass/Vol]11.4 g/dLLow13.0-17.0The [facility] Physician GroupComment on above:Performed By: #### UA #### [place] [address] USALymphocytes (Bld) [#/Vol]0.8 10*3/uLLow1.00-4.8The [facility] Physician GroupComment on above:Performed By: #### UA #### [facility] [address] [place] [address] USALymphocytes/100 WBC (Bld)10.5 %Normal.The [facility] Physician GroupComment on above:Performed By: #### UA #### [facility] [address] [place] [address] USAMCH (RBC) [Entitic mass]31.0 hcNaycvg18.5-35.2The [facility] Physician GroupComment on above:Performed By: #### UA #### [facility] [address] [place] [address] USAMCV (RBC) [Entitic vol]92.9 iGArdbdc40.5-101The [facility] Physician GroupComment on above:Performed By: #### UA #### [facility] [address] [place] [address] USAMean Corpuscular HGB Conc33.4 g/pADtvwvw35.5-35.6The [facility] Physician GroupComment on above:Performed By: #### UA #### [facility] [address] [place] [address] USAMonocytes (Bld) [#/Vol]0.8 10*3/uLNormal0.0-0.8The [facility] Physician GroupComment on above:Performed By: #### UA #### [place] [address] USAMonocytes/100 WBC (Bld)23.19 %High0.00-20.00The [facility] Physician GroupComment on above:Result Comment: For adults in ED, MDW > 20.0 may be associated with a higher risk of sepsis during the first 12 hrs of hospital admissionPerformed By: #### UA #### [place] [address] USAMonocytes/100 WBC (Bld)11.3 %Normal.The [facility] Physician GroupComment on above:Performed By: #### UA #### [place] [address] USANeutrophils (Bld) [#/Vol]5.7 10*3/uLNormal1.8-7.7The [facility] Physician GroupComment on above:Performed By: #### UA #### [place] [address] USANeutrophils/100 WBC (Bld)77.0 %Normal.The [facility] Physician GroupComment on above:Performed By: #### UA #### [address] [address] USANRBC%0.2 /100{WBC}Normal0-0.5The [facility] Comment on above:Performed By: #### UA #### [place] [address] USAPlatelet mean volume (Bld) [Entitic vol]8.1 fLNormal 6.6-10.1The [facility] Physician GroupComment on above:Performed By: #### UA #### [place] [address] USAPlatelets (Bld) [#/Vol]234 10*3/yIBmwvng684-764Nvn [facility] Physician GroupComment on above:Performed By: #### UA #### [place] [address] USARBC (Bld) [#/Vol]3.68 10*6/uLLow3.90-5.60The [facility] Physician GroupComment on above:Performed By: #### UA #### [place] [address] USAWBC (Bld) [#/Vol]7.4 10*3/uLNormal4.1-10.5The [facility] Physician GroupComment on above:Performed By: #### UA #### [place] [address] USAComprehensive Metabolic Panelon 87-95-9833Idyfqqu [Mass/Vol]3.4 g/dLLow3.5-5.7The [facility] Physician GroupComment on above: Performed By: #### ESR #### [facility] [address] [place] [address] USAAlbumin/Globulin [Mass ratio]1.4 {ratio}NormalThe [facility] Physician GroupComment on above:Performed By: #### ESR #### [place] [address] USAALP [Catalytic activity/Vol]66 U/WKjggvn64-536Xqo [facility] Physician GroupComment on above:Performed By: #### ESR #### [place] [id number] USAALT [Catalytic activity/Vol]17 U/LNormal7-52The [facility] Physician GroupComment on above:Performed By: #### ESR #### [place] [address] USAAnion gap [Moles/Vol]10.3 mmol/LNormal6.0-15.0The [facility] Physician GroupComment on above:Performed By: #### ESR #### [place] [address] USAAST [Catalytic activity/Vol]18 U/LKmsbpv74-81Yty [facility] Physician GroupComment on above:Performed By: #### ESR #### [facility] [address] [place] [address] USABilirubin [Mass/Vol]0.6 mg/dLNormal0.3-1.0The [facility] Physician GroupComment on above:Performed By: #### ESR #### [place] [address] USACalcium [Mass/Vol]8.4 mg/dLLow8.6-10.3The [facility] Physician GroupComment on above:Performed By: #### ESR #### [place] [address] USAChloride [Moles/Vol]104 mmol/PSsbobh51-185Ffw [facility] Physician GroupComment on above:Performed By: #### ESR #### [facility] [address] [place] [address] USACO2 [Moles/Vol]25.4 mmol/EDbbumz15.0-31.0The [facility] Physician GroupComment on above:Performed By: #### ESR #### [facility] [address] [place] [address] USACreatinine [Mass/Vol]0.85 mg/dLNormal0.70-1.30The [facility] Physician GroupComment on above:Performed By: #### ESR #### [facility] [address] [place] [address] USACreatinine Clr Calc Aljbfusa23.71NormalThe [facility] Physician GroupComment on above:Result Comment: PERFORMED BY: [place] [address] PATHOLOGIST ADVERTISING REPRESENTATIVE HEBER SHANNON M.D.Performed By: #### ESR #### [place] [address] USAGFR/1.73 sq M.predicted MDRD (S/P/Bld) [Vol rate/Area] mL/min/{1.73_m2}NormalThe [facility] Physician GroupComment on above:Performed By: #### ESR #### [place] [address] USAGlobulin (S) [Mass/Vol]2.5 g/dLNoCone Health Moses Cone Hospital Physician GroupComment on above:Performed By: #### ESR #### [place] [address] USAGlucose [Mass/Vol]106 mg/nMCopp07-928Zfl [facility] Physician GroupComment on above:Result Comment: Random Glucose Reference Range is dependent on time and content of last meal. Glucose of more than 200 mg/dL in a nonstressed, ambulatory subject supports the diagnosis of Diabetes Mellitus. ADA recommended reference rangePerformed By: #### ESR #### [place] [address] USAPotassium [Moles/Vol]3.7 mmol/LNormal3.5-5.1The [facility] Physician GroupComment on above:Performed By: #### ESR #### [place] [address] USAProtein [Mass/Vol]5.9 g/dLLow6.4-8.9The [facility] Physician GroupComment on above:Performed By: #### ESR #### [place] [address] USASodium [Moles/Vol]136 mmol/AMwjmod528-392Vyh [facility] Physician GroupComment on above:Performed By: #### ESR #### [place] [address] USAUrea nitrogen [Mass/Vol]16 mg/dLNormal7-25The [facility] Physician GroupComment on above:Performed By: #### ESR #### [facility] [address] [place] [address] USACreatinine [Mass/volume] in Serum or PlasmaOrdered By: Louie Marrero on 43-15-2865Uadrerbwnz [Mass/Vol]Creatinine [Mass/volume] in Serum or Plasma0.70-1.30[facility] Medical CenterECG 12 lead ECGon 72-58-1644PWA 12 lead ECGTRIHEALTH [facility] [address] [address] [place] [address] Electrocardiograph Report Signed Patient: Jeremie Bennett MR#: [id number] : 1940 Acct:[id number] Age/Sex: 83 / M ADM Date: 08/20/24 Loc: ER Room: Type: [facility] ER Attending Dr: Ordering Provider: [...] ECGs available Confirmed by LOUIE MARRERO DO ([id number]) on 08/20/2024 7:55:25 PM Referred By: Electronically Signed By: LOUIE MARRERO DO Transcribed By: MUS Signed By Louie Marrero DO 08/[address] [place] [address] Physician GroupEosinophils Auto (Bld) [#/Vol]Ordered By: Louie Marrero on 83-97-8330Cphnpdpvdhl (Bld) [#/Vol]Automated eosinophil count0.0-0.45[facility] Medical CenterEosinophils/100 WBC Auto (Bld) Ordered By: Louei Marrero on 92-74-1115Tagmzytzjry/100 WBC (Bld)Automated eosinophil %.[facility] CenterErythrocyte Sedimentation Rateon 04-50-5934VVA (Bld) [Velocity]42 mm/hHigh0-19The [facility] Comment on above:Result Comment: PERFORMED BY: [facility] [address] [place] [address] PATHOLOGIST ADVERTISING REPRESENTATIVE HEBER SHANNON M.D.Performed By: #### ESR #### [place] [address] USAErythrocyte distribution width Auto (RBC) [Ratio]Ordered By: Louie Marrero on 35-61-4547Skmqqvyubor distribution width (RBC) [Ratio] Erythrocyte distribution width [Ratio] by Automated count12.0-14.8[facility] Medical CenterErythrocyte sedimentation rate by Photometric method Ordered By: Jaiden Nance on 97-04-5056TNJ Photometric method (Bld) [Velocity] Erythrocyte sedimentation rate by Photometric methodDavis Memorial Hospital0-19[facility] Medical CenterGlobulin Calc (S) [Mass/Vol]Ordered By: Louie Marrero on 64-25-2445Houyzcjg (S) [Mass/Vol]Serum globulin measurement by calculation (mass/volume)[facility] CenterGlucose [Mass/volume] in Serum or PlasmaOrdered By: Louie Marrero on 20-11-4423Exmdtix [Mass/Vol]Glucose [Mass/volume] in Serum or QhlktyJbyq83-575LtsopvpnpLakehealth Tripoint Medical Center Comment on above:ADA recommended reference rangeRandom Glucose Reference Range is dependent on time and content of last meal. Glucose of more than 200 mg/dL in a nonstressed, ambulatory subject supports the diagnosisof Diabetes Mellitus. Glucose [Mass/volume] in Urine by Test stripOrdered By: Louie Marrero on 07-68-1599Yhyhdgu Test strip (U) [Mass/Vol]Glucose [Mass/volume] in Urine by Test stripNormalLakehealth Tripoint Medical CenterHematocrit Auto (Bld) [Volume fraction]Ordered By: Louie Marrero on 77-39-3249Bsawkmpiut (Bld) [Volume fraction]Hematocrit [Volume Fraction] of Blood by Automated wkagqRsf53.8-50.0 [facility] CenterHemoglobin Test strip Ql (U)Ordered By: Louie Marrero on 98-93-1513Vuwyhmncbe Ql (U)Hemoglobin [Presence] in Urine by Test stripNegativeLakehealth Tripoint Medical CenterHemoglobin [Mass/volume] in Blood Ordered By: Louie Marrero on 39-48-0583Idokwyviyt (Bld) [Mass/Vol]Hemoglobin [Mass/volume] in KknhxTtn51.0-17.0[facility] CenterINR in Platelet poor plasma by Coagulation assayOrdered By: Louie Marrero on 08-20-2024 INR Coag (PPP) [Relative time]INR in Platelet poor plasma by Coagulation assay [facility] CenterComment on above:INR Therapeutic Range A) [...] strip Ql (U)Ordered By: Louie Marrero on 46-44-6465Ckwtaql Ql (U)Ketones [Presence] in Urine by Test stripHighNegThe Surgical Hospital at SouthwoodsLaboratory - Microbiology and Antimicrobial susceptibilityOrdered By: Louie Marrero on 40-31-9714Exmnzsfs identified Cx Nom (Bld)NO GROWTH 5 DAYSLakehealth Tripoint Medical CenterBacteria identified Cx Nom (Bld)NO GROWTH 5 DAYSLakehealth Tripoint Medical CenterLactate [Moles/volume] in Serum or PlasmaOrdered By: Louie Marrero on 91-38-7126Sglwamz [Moles/Vol]Lactate [Moles/volume] in Serum or Plasma0.5-1.9[facility] CenterComment on above:Lactic Acid reference range has been updated to 0.5 1.9 mmol/L and the critical range of 2.0 or greater.Lactic Acidon 08-20-2024 Lactate [Moles/Vol]0.8 mmol/LNormal0.5-1.9The [facility] Physician GroupComment on above:Result Comment: Lactic Acid reference range has been updated to 0.5 ? 1.9 mmol/L and the critical range of 2.0 or greater. PERFORMED BY: [place] [address] [place] [address] PATHOLOGIST ADVERTISING REPRESENTATIVE HEBER SHANNON M.D.Performed By: #### UA #### [facility] [address] [place] [id number] [facility] CARE CORPORATIONLeukocyte esterase [Presence] in Urine by Test strip Ordered By: Louie Marrero on 16-97-1322Zdsuayldt esterase Test strip Ql (U) Leukocyte esterase [Presence] in Urine by Test stripNegativeLakehealth Tripoint Medical CenterLeukocytes [#/volume] corrected for nucleated erythrocytes in Blood by Automated counOrdered By: Louie Marrero on 61-34-8538HQM corrected for nucl RBC Auto (Bld) [#/Vol]Leukocytes [#/volume] corrected for nucleated erythrocytes in Blood by Automated coun4.1-10.5FBarnesville Hospital Lymphocytes Auto (Bld) [#/Vol]Ordered By: Louie Marrero on 34-98-6777Twfihlyolwi (Bld) [#/Vol]Lymphocytes [#/volume] in Blood by Automated countLow1.00-4.8 [facility] CenterLymphocytes/100 WBC Auto (Bld)Ordered By: Louie Marrero on 27-40-2327Vpwbzvemnmo/100 WBC (Bld)Lymphocytes/100 leukocytes in Blood by Automated count.[facility] Auto (RBC) [Entitic mass]Ordered By: Louie Marrero on 86-19-3635XKO (RBC) [Entitic mass]MCH [Entitic mass] by Automated count27.5-35.2FOhioHealth Grant Medical CenterHC Auto (RBC) [Mass/Vol]Ordered By: Louie Marrero on 72-07-8844ELOL (RBC) [Mass/Vol]MCHC [Mass/volume] by Automated count32.5-35.6FOhioHealth Grant Medical CenterV Auto (RBC) [Entitic vol]Ordered By: Louie Marrero on 50-49-5280WOM (RBC) [Entitic vol]MCV [Entitic volume] by Automated count83.5-101 [facility] CenterMonocyte distribution width [Entitic volume] in Blood by AutomatedOrdered By: Louie Marrero on 22-02-9803Zngocjsm distribution width Auto (Bld) [Entitic vol]Monocyte distribution width [Entitic volume] in Blood by AutomatedHigh0.00-20.00[facility] CenterComment on above:For adults in ED, MDW > 20.0 may be associated with a higher risk of sepsis during the first 12 hrs of hospital admissionMonocytes Auto (Bld) [#/Vol] Ordered By: Louie Marrero on 44-52-2955Ephjnzkjb (Bld) [#/Vol]Automated blood monocyte count0.0-0.8[facility] CenterMonocytes/100 WBC Auto (Bld)Ordered By: Louie Marrero on 90-09-6275Ylcuftbss/100 WBC (Bld)Automated monocyte %.[facility] CenterNeutrophils Auto (Bld) [#/Vol] Ordered By: Louie Marrero on 35-95-0298Ezrhijgdwgf (Bld) [#/Vol]Neutrophils [#/volume] in Blood by Automated count1.8-7.7FBarnesville Hospital Neutrophils/100 WBC Auto (Bld)Ordered By: Louie Marrero on 08-20-2024 Neutrophils/100 WBC (Bld)Automated neutrophil %.[facility] CenterNitrite Test strip Ql (U)Ordered By: Louie Marrero on 69-11-4385Bzuwefw Ql (U)Nitrite [Presence] in Urine by Test stripNegativeLakehealth Tripoint Medical CenterNo Panel InformationOrdered By: Louie Marrero on 56-86-1285Blsegjuiy GFR (CKD-EPI)> 60.0 mL/MinLakehealth Tripoint Medical CenterPharmacy Creatinine Clearance (Chem58.71[facility] CenterNucleated erythrocytes [Presence] in Blood by Automated countOrdered By: Louie Marrero on 08-20-2024 Nucleated RBC Auto Ql (Bld)Nucleated erythrocytes [Presence] in Blood by Automated count0-0.5FBarnesville HospitalPlatelet mean volume Auto (Bld) [Entitic vol]Ordered By: Louie Marrero on 92-96-5262Wygapjbf mean volume (Bld) [Entitic vol]Platelet mean volume [Entitic volume] in Blood by Automated count6.6-10.1FBarnesville HospitalPlatelets Auto (Bld) [#/Vol] Ordered By: Louie Marrero on 57-15-2180Hyavmmnii (Bld) [#/Vol]Platelets [#/volume] in Blood by Automated kruis366-594UneeutmutLakehealth Tripoint Medical Center Potassium [Moles/volume] in Serum or PlasmaOrdered By: Louie Marrero on 09-63-9127Ndxwwrkzb [Moles/Vol]Potassium [Moles/volume] in Serum or Plasma 3.5-5.1FBarnesville HospitalProtein Test strip (U) [Mass/Vol]Ordered By: Louie Marrero on 88-91-4611Cyqvnxm (U) [Mass/Vol]Protein [Mass/volume] in Urine by Test stripNegativeLakehealth Tripoint Medical CenterProtein [Mass/volume] in Serum or PlasmaOrdered By: Louie Marrero on 54-88-4588Hhkgkdr [Mass/Vol]Protein [Mass/volume] in Serum or PlasmaLow6.4-8.9[facility] CenterProthrombin Time INRon 18-82-9831VWE Coag (PPP) [Relative time]1.1 {INR}NormalThe [facility] Physician GroupComment on above:Result Comment: INR Therapeutic [...] heart valves: 3 - 4.5 PERFORMED BY: [address] [address] PATHOLOGIST ADVERTISING REPRESENTATIVE HEBER SHANNON M.D.Performed By: #### ESR #### [facility] [address] [place] [address] USAPT Coag (PPP) [Time]12.9 sNormal9.0-12.9The [facility] Physician GroupComment on above:Result Comment: A hematocrit value greater than 55% may lead to inaccurate results in coagulation testing. Patients having hematocrit values >55% require a special collection tube for coagulation studies. Please contact the laboratory at [phone] for redraw instructions.Performed By: #### ESR #### [facility] [address] [place] [address] USAProthrombin time (PT)Ordered By: Louie Marrero on 69-86-4995OU Coag (PPP) [Time]Prothrombin time (PT)9.0-12.9[facility] Medical CenterComment on above:A hematocrit value greater than 55% may lead to inaccurate results in coagulation testing. Patientshaving hematocrit values >55% require a special collection tube for coagulation studies. Please contact the laboratory at [phone] for redraw instructions.RBC Auto (Bld) [#/Vol]Ordered By: Louie Marrero on 88-55-1045BZJ (Bld) [#/Vol]Erythrocytes [#/volume] in Blood by Automated countLow3.90-5.60[facility] Medical CenterRespiratory (Upper) Panel, PCRon 88-31-0400Fdpzjpdevom (Upper) Panel, PCRAdenovirus Not detected Bordetella parapertussis [...] Influenza A H3 Blank Space PERFORMED BY: [facility] [place] [address] PATHOLOGIST ADVERTISING REPRESENTATIVE HEBER SHANNON M.D.NormalNaval Hospital Jacksonville Physician GroupComment on above: Performed By: #### MG, SCAN CBC, CMP #### [address] [address] USARespiratory pathogens DNA and RNA panel - Nasopharynx by MICHELLE with non-probe detectionOrdered By: Louie Marrero on 79-68-7555Xsrdrtbpgmv pathogens DNA and RNA panel MICHELLE+non-probe (Nph)Respiratory pathogens DNA and RNA panel - Nasopharynx by MICHELLE with non-probe detectionBarnesville Hospitalerum or plasma albumin/globulin mass ratioOrdered By: Louie Marrero on 57-72-7934Bznxzeg/Globulin [Mass ratio]Serum or plasma albumin/globulin mass ratioBarnesville Hospitalerum or plasma anion gap determination Ordered By: Louie Marrero on 23-63-1230Dtokv gap [Moles/Vol]Serum or plasma anion gap determination6.0-15.0Barnesville Hospitalodium [Moles/volume] in Serum or PlasmaOrdered By: Louie Marrero on 25-88-0850Wandtm [Moles/Vol]Sodium [Moles/volume] in Serum or Qsiaig556-419LodcbugvbBarnesville Hospitalpecific gravity Test strip (U) [Rel density]Ordered By: Louie Marrero on 57-18-1034Erbfwkzk gravity (U) [Rel density]Specific gravity of Urine by Test strip1.001-1.030[facility] CenterTroponin I High Sensitivityon 43-63-2097Jldispse I High Rjsktbisttr09Mvjtww5-07Kqh [facility] Physician GroupComment on above:Result Comment: The Troponin units of report have been changed to meet the Chest Pain Accreditation requirement, element EC5.M1l2. Troponin units are changed from pg/ml to ng/L. Also, the decimal is removed and results are in whole numbers. PERFORMED BY: [address] [address] PATHOLOGIST ADVERTISING REPRESENTATIVE HEBER SHANNON M.D.Performed By: #### MG, SCAN CBC, CMP #### [facility] [address] [place] [address] USATroponin I.cardiac [Mass/volume] in Serum or Plasma by Detection limit <= 0.01 ng/Ordered By: Louie Marrero on 60-27-1509Roounojg I.cardiac DL <= 0.01 ng/mL [Mass/Vol]Troponin I.cardiac [Mass/volume] in Serum or Plasma by Detection limit <= 0.01 ng/0-20[facility] Comment on above:The Troponin units of report have been changed to meet the Chest Pain Accreditation requirement, element EC5.M1l2. Troponin units are changed from pg/ml to ng/L. Also, the decimal is removed and results are in whole numbers.Urea nitrogen [Mass/volume] in Serum or PlasmaOrdered By: Louie Marrero on 94-01-8328Jkot nitrogen [Mass/Vol]Urea nitrogen [Mass/volume] in Serum or Plasma12-08[facility] Medical CenterUrinalysison 08-20-2024 Appearance (U)ClearNormalClearThe [facility] Physician GroupComment on above: Order Comment: Name Collection Type:: Straight CatheterPerformed By: #### MG, SCAN CBC, CMP #### [facility] [address] [id number] USABilirubin,UrineNegativeNormalNegativeNaval Hospital Jacksonville Physician GroupComment on above:Order Comment: Name Collection Type:: Straight CatheterPerformed By: #### MG, SCAN CBC, CMP #### [facility] [address] [place] [address] USAColor (U)Light-YellowNormalYellowThe [facility] Physician GroupComment on above:Order Comment: Name Collection Type:: Straight Catheter Performed By: #### MG, SCAN CBC, CMP #### [facility] [address] [place] [address] USAGlucose Ql (U)NormalNormalNormalThe [facility] Physician GroupComment on above:Order Comment: Name Collection Type:: Straight Catheter Performed By: #### MG, SCAN CBC, CMP #### [facility] [address] [place] [address] USAKetones Ql (U)1+HighNegativeThe [facility] Group Comment on above:Order Comment: Name Collection Type:: Straight Catheter Performed By: #### MG, SCAN CBC, CMP #### [place] [address] USALeukocyte esterase Test strip Ql (U)NegativeNormalNegative The [facility] Physician GroupComment on above:Order Comment: Name Collection Type:: Straight CatheterPerformed By: #### MG, SCAN CBC, CMP #### [place] [address] USANitrite,UrineNegativeNormalNegativeThe [facility] Physician GroupComment on above:Order Comment: Name Collection Type:: Straight Catheter Performed By: #### MG, SCAN CBC, CMP #### [place] [address] USAOccult Blood,UrineNegativeNormalNegativeThe [facility] Physician GroupComment on above:Order Comment: Name Collection Type:: Straight CatheterResult Comment: PERFORMED BY: [place] [address] PATHOLOGIST ADVERTISING REPRESENTATIVE HEBER SHANNON M.D.Performed By: #### MG, SCAN CBC, CMP #### [place] [address] USApH (U)5.5 [pH]Normal5.0-9.0The [facility] Comment on above:Order Comment: Name Collection Type:: Straight Catheter Performed By: #### MG, SCAN CBC, CMP #### [place] [address] USAProtein,UrineNegativeNormalNegativeThe [facility] Physician GroupComment on above:Order Comment: Name Collection Type:: Straight Catheter Performed By: #### MG, SCAN CBC, CMP #### [place] [address] USASpecificy Beason,Urine1.686Gbycsh6.001-1.030The [facility] Physician GroupComment on above:Order Comment: Name Collection Type:: Straight CatheterPerformed By: #### MG, SCAN CBC, CMP #### [place] [address] USAUrobilinogen,UrineNormalNormalNormalThe [place]lands Physician GroupComment on above:Order Comment: Name Collection Type:: Straight CatheterPerformed By: #### MG, SCAN CBC, CMP #### [facility] [address] [phone] USAUrobilinogen Test strip (U) [Mass/Vol]Ordered By: Louie Marrero on 70-30-3496Bkajjrlggveh (U) [Mass/Vol]Urobilinogen [Mass/volume] in Urine by Test stripNoMemorial HospitalWBC Auto (Bld) [#/Vol] Ordered By: Louie Marrero on 59-51-0857ODX (Bld) [#/Vol]Leukocytes [#/volume] in Blood by Automated count4.1-10.5FBarnesville HospitalX-ray report Ordered By: Rah Benavides on 33-11-6717Ujvno [facility] [address] [place] [address] [place] [address] XRay Report Signed Patient: Jeremie Bennett MR#: [id number] : 1940 Acct:[id number] Age/Sex: 83 / M ADM Date: 5 Loc: ER Room: Type: [facility] ER Attending Dr: Copies to: Louie Marrero DO~ Ordering Provider: Louie Marrero DO Date of Service: 08/20/24 XR/XR chest 1V portable: Fever SINGLE VIEW CHEST CLINICAL HISTORY: Fever, recently finished chemotherapy, cough for 3 weeks COMPARISON: 07/17/2024 FINDINGS: Left-sided pacemaker device. Right-sided Eirkvi-g-Aaai. Posterior changes fromprior ACDF. Mildly enlarged cardiac silhouette. Minimal hazy bibasilar opacities similar prior exam. No effusion or pneumothorax. XR/XR chest 1V portable IMPRESSION: MILD BIBASILAR AIRSPACE OPACITIES, THESE APPEAR SIMILAR PRIOR EXAM. Impression dictated by: Rah Benavides M.D.08/20/2024 6:32 PM Dictation Location: [place] [address] Transcribed By: [facility] 08/20/24 9727 Dictated By: Rah Benavides MD 08/20/241830 Signed By: 08/20/241831 [facility] Work Phone: XR chest 1V portableon 76-24-2755DE chest 1V portable [facility] [address] [place] [address] [place], [place] [id number] XRay Report Signed Patient: Jeremie Bennett MR#: [id number] : 1940 Acct:[id number] Age/Sex: 83 / M ADM Date: 08/20/24 Loc: ER Room: Type: [facility] ER Attending Dr: Copies to: Louie Marrero DO Ordering Provider: Louie Marrero DO Date of Service: 08/20/24 XR/XR chest 1V portable: Fever SINGLE VIEW CHEST CLINICAL HISTORY: Fever, recently finished chemotherapy, cough for 3 weeks COMPARISON: 07/17/2024 FINDINGS: Left-sided pacemaker device. Right-sided Cgbjad-f-Nhse. Posterior changes from prior ACDF. Mildly enlarged cardiac silhouette. Minimal hazy bibasilar opacities similar prior exam. No effusion or pneumothorax. XR/XR chest 1V portable IMPRESSION: MILD BIBASILAR AIRSPACE OPACITIES, THESE APPEAR SIMILAR PRIOR EXAM. Impression dictated by: Rah Benavides M.D.08/20/2024 6:32 PM Dictation Location: [place] [address] Transcribed By: [facility] 08/20/241831 Dictated By: Rah Benavides MD 08/20/241830 Signed By: 08/20/24 [facility] GrouppH Test strip (U)Ordered By: Louie Marrero on 22-49-1645eV (U)pH of Urine by Test strip5.0-9.0[facility] Medical CenterAlanine aminotransferase [Enzymatic activity/volume] in Serum or PlasmaOrdered By: Talib Faustin on 71-07-5637DCQ [Catalytic activity/Vol]Alanine aminotransferase [Enzymatic activity/volume] in Serum or Plasma7-[facility] CenterAlbumin [Mass/volume] in Serum or Plasma by Bromocresol green (BCG) dye binding methoOrdered By: Talib Faustin on 85-92-6594Wsnkdko BCG dye [Mass/Vol]Albumin [Mass/volume] in Serum or Plasma by Bromocresol green (BCG) dye binding metho3.5-5.7FBarnesville HospitalAlkaline phosphatase [Enzymatic activity/volume] in Serum or PlasmaOrdered By: Talib Faustin on 20-49-5452OXO [Catalytic activity/Vol]Alkaline phosphatase [Enzymatic activity/volume] in Serum or Mpteel91-832OsswrhhlpLakehealth Tripoint Medical CenterAspartate aminotransferase [Enzymatic activity/volume] in Serum or Plasma Ordered By: Talib Faustin on 21-74-5311PJB [Catalytic activity/Vol]Aspartate aminotransferase [Enzymatic activity/volume] in Serum or Eayjga72-21JzoarkacvLakehealth Tripoint Medical CenterBasophils Auto (Bld) [#/Vol]Ordered By: Talib Faustin on 43-33-2496Rrcpjkuri (Bld) [#/Vol]Automated basophil count0.0-0.2FBarnesville HospitalBasophils/100 WBC Auto (Bld)Ordered By: Talib Faustin on 96-13-4303Hdehzizuz/100 WBC (Bld)Automated basophil %.[facility] CenterBilirubin.total [Mass/volume] in Serum or PlasmaOrdered By: Talib Faustin on 32-56-2242Hnxojvjuj [Mass/Vol]Bilirubin.total [Mass/volume] in Serum or Plasma0.3-1.0[facility] CenterCalcium [Mass/volume] in Serum or PlasmaOrdered By: Talib Faustin on 51-66-5991Epoamcv [Mass/Vol]Calcium [Mass/volume] in Serum or Plasma8.6-10.3FBarnesville HospitalCarbon dioxide, total [Moles/volume] in Serum or PlasmaOrdered By: Talib Faustin on 96-57-9865KU8 [Moles/Vol]Carbon dioxide, total [Moles/volume] in Serum or Plasma 21.0-31.0[facility] CenterChloride [Moles/volume] in Serum or PlasmaOrdered By: Talib Faustin on 42-35-8614Vxthpjyq [Moles/Vol]Chloride [Moles/volume] in Serum or Xuvepf99-713DditphgpaLakehealth Tripoint Medical CenterComplete Blood Count Auto Diffon 07-48-8756Qxtjtumtu (Bld) [#/Vol]0.1 10*3/uLNormal 0.0-0.2The [facility] Physician GroupComment on above:Result Comment: PERFORMED BY: [place] [address] PATHOLOGIST ADVERTISING REPRESENTATIVE HEBER SHANNON M.D.Performed By: #### ESR #### [place] [address] USABasophils/100 WBC (Bld)1.1 %Normal.The [facility] Physician GroupComment on above:Performed By: #### ESR #### [place] [address] USAEosinophils (Bld) [#/Vol]0.1 10*3/uLNormal0.0-0.45The [facility] Physician GroupComment on above:Performed By: #### ESR #### [place] [address] USAEosinophils/100 WBC (Bld)0.7 %Normal.The [facility] Physician GroupComment on above:Performed By: #### ESR #### [place] [address] USAErythrocyte distribution width (RBC) [Ratio]15.2 %High 12.0-14.8The [facility] Physician GroupComment on above:Performed By: #### ESR #### [place] [address] USAHematocrit (Bld) [Volume fraction]34.8 %Low38.8-50.0The [facility] Physician GroupComment on above:Performed By: #### ESR #### [place] [address] USAHemoglobin (Bld) [Mass/Vol]11.7 g/dLLow13.0-17.0The [facility] Physician GroupComment on above:Performed By: #### ESR #### [facility] [address] [place] [address] USALymphocytes (Bld) [#/Vol]0.6 10*3/uLLow1.00-4.8The [facility] Physician GroupComment on above:Performed By: #### ESR #### [facility] [address] [place] [address] USALymphocytes/100 WBC (Bld)6.4 %Normal.The [facility] Physician GroupComment on above:Performed By: #### ESR #### [facility] [address] [place] [address] USAMCH (RBC) [Entitic mass]30.8 xuYkhmpa75.5-35.2The [facility] Physician GroupComment on above:Performed By: #### ESR #### [place] [address] USAMCV (RBC) [Entitic vol]91.9 eIFnawpk14.5-101The [facility] Physician GroupComment on above:Performed By: #### ESR #### [facility] [address] [place] [id number] USAMean Corpuscular HGB Conc33.5 g/nOPspoth64.5-35.6The [facility] Physician GroupComment on above:Performed By: #### ESR #### [address] [address] USAMonocytes (Bld) [#/Vol]1.1 10*3/uLHigh0.0-0.8The [facility] Physician GroupComment on above:Performed By: #### ESR #### [facility] [address] [place] [address] USAMonocytes/100 WBC (Bld)12.6 %Normal.The [facility] Physician GroupComment on above:Performed By: #### ESR #### [address] [address] USANeutrophils (Bld) [#/Vol]7.2 10*3/uLNormal1.8-7.7The [facility] Physician GroupComment on above:Performed By: #### ESR #### [facility] [address] [place] [address] USANeutrophils/100 WBC (Bld)79.2 %Normal.The [facility] Physician GroupComment on above:Performed By: #### ESR #### [facility] [address] [place] [address] USANRBC%0.1 /100{WBC}Normal0-0.5The [facility] Comment on above:Performed By: #### ESR #### [facility] [address] [place] [address] USAPlatelet mean volume (Bld) [Entitic vol]7.5 fLNormal 6.6-10.1The [facility] Physician GroupComment on above:Performed By: #### ESR #### [place] [address] USAPlatelets (Bld) [#/Vol]236 10*3/eDYfdldl950-324Ziv [facility] Physician GroupComment on above:Performed By: #### ESR #### [place] [address] USARBC (Bld) [#/Vol]3.79 10*6/uLLow3.90-5.60The [facility] Physician GroupComment on above:Performed By: #### ESR #### [place] [address] USAWBC (Bld) [#/Vol]9.1 10*3/uLNormal4.1-10.5The [facility] Physician GroupComment on above:Performed By: #### ESR #### [place] [address] USAComprehensive Metabolic Panelon 05-17-7941Znzodqf [Mass/Vol]3.6 g/dLNormal3.5-5.7The [facility] Physician GroupComment on above: Performed By: #### ESR #### [place] [address] USAAlbumin/Globulin [Mass ratio]1.4 {ratio}NormalThe [facility] Physician GroupComment on above:Performed By: #### ESR #### [facility] [address] [place] [address] USAALP [Catalytic activity/Vol]73 U/NHnqnzo01-855Gmj [facility] Physician GroupComment on above:Performed By: #### ESR #### [facility] [address] [place] [address] USAALT [Catalytic activity/Vol]14 U/LNormal7-52The [facility] Physician GroupComment on above:Performed By: #### ESR #### [facility] [address] [place] [address] USAAnion gap [Moles/Vol]10.5 mmol/LNormal6.0-15.0The [facility] Physician GroupComment on above:Performed By: #### ESR #### [place] [address] USAAST [Catalytic activity/Vol]13 U/YSdxlml66-72Vym [facility] Physician GroupComment on above:Performed By: #### ESR #### [place] [address] USABilirubin [Mass/Vol]0.4 mg/dLNormal0.3-1.0The [facility] Physician GroupComment on above:Performed By: #### ESR #### [place] [address] USACalcium [Mass/Vol]8.6 mg/dLNormal8.6-10.3The [facility] Physician GroupComment on above:Performed By: #### ESR #### [facility] [address] [place] [address] USAChloride [Moles/Vol]107 mmol/FCisfbc65-003Kir [facility] Physician GroupComment on above:Performed By: #### ESR #### [facility] [address] [place] [address] USACO2 [Moles/Vol]24.4 mmol/VTedrbo11.0-31.0The [facility] Physician GroupComment on above:Performed By: #### ESR #### [facility] [address] [place] [address] USACreatinine [Mass/Vol]0.83 mg/dLNormal0.70-1.30The [facility] Physician GroupComment on above:Performed By: #### ESR #### [facility] [address] [place] [address] USACreatinine Clr Calc Nkdvcckl10.79NoCone Health Moses Cone Hospital Physician GroupComment on above:Result Comment: PERFORMED BY: [place] [address] PATHOLOGIST ADVERTISING REPRESENTATIVE HEBER SHANNON M.D.Performed By: #### ESR #### [place] [address] USAGFR/1.73 sq M.predicted MDRD (S/P/Bld) [Vol rate/Area] mL/min/{1.73_m2}NormalThe [facility] Physician GroupComment on above:Performed By: #### ESR #### [place] [address] USAGlobulin (S) [Mass/Vol]2.6 g/dLNoCone Health Moses Cone Hospital Physician GroupComment on above:Performed By: #### ESR #### [place] [address] USAGlucose [Mass/Vol]119 mg/vEXuca50-089Dtl [facility] Physician GroupComment on above:Result Comment: Random Glucose Reference Range is dependent on time and content of last meal. Glucose of more than 200 mg/dL in a nonstressed, ambulatory subject supports the diagnosis of Diabetes Mellitus. ADA recommended reference rangePerformed By: #### ESR #### [place] [address] USAPotassium [Moles/Vol]3.9 mmol/LNormal3.5-5.1The [facility] Physician GroupComment on above:Performed By: #### ESR #### [place] [address] USAProtein [Mass/Vol]6.2 g/dLLow6.4-8.9The [facility] Physician GroupComment on above:Performed By: #### ESR #### [place] [address] USASodium [Moles/Vol]138 mmol/JWsuogd102-125Inx [facility] Physician GroupComment on above:Performed By: #### ESR #### [facility] [address] [place] [address] USAUrea nitrogen [Mass/Vol]19 mg/dLNormal7-25The [facility] Physician GroupComment on above:Performed By: #### ESR #### [facility] [address] [place] [address] USACreatinine [Mass/volume] in Serum or PlasmaOrdered By: Talib Faustin on 54-12-0516Dtschrpeev [Mass/Vol]Creatinine [Mass/volume] in Serum or Plasma0.70-1.30[facility] CenterEosinophils Auto (Bld) [#/Vol]Ordered By: Talib Faustin on 95-09-8920Aubnbehhhzm (Bld) [#/Vol] Automated eosinophil count0.0-0.45[facility] Eosinophils/100 WBC Auto (Bld)Ordered By: Talib Faustin on 08-16-2024 Eosinophils/100 WBC (Bld)Automated eosinophil %.[facility] Medical CenterErythrocyte distribution width Auto (RBC) [Ratio]Ordered By: Talib Hargrove on 04-09-4449Zgnefqsdeip distribution width (RBC) [Ratio]Erythrocyte distribution width [Ratio] by Automated evzttGiue31.0-14.8[facility] Medical CenterGlobulin Calc (S) [Mass/Vol]Ordered By: Talib Faustin on 87-91-9408Zrbwveun (S) [Mass/Vol]Serum globulin measurement by calculation (mass/volume)[facility] CenterGlucose [Mass/volume] in Serum or PlasmaOrdered By: Talib Faustin on 04-64-8824Ibkherf [Mass/Vol]Glucose [Mass/volume] in Serum or VhkslgYmck58-991HluysjncsLakehealth Tripoint Medical Center Comment on above:ADA recommended reference rangeRandom Glucose Reference Range is dependent on time and content of last meal. Glucose of more than 200 mg/dL in a nonstressed, ambulatory subject supports the diagnosisof Diabetes Mellitus. Hematocrit Auto (Bld) [Volume fraction]Ordered By: Talib Faustin on 08-16-2024 Hematocrit (Bld) [Volume fraction]Hematocrit [Volume Fraction] of Blood by Automated npnrmYhy14.8-50.0[facility] CenterHemoglobin [Mass/volume] in BloodOrdered By: Talib Faustin on 31-89-2179Xdenkfnlod (Bld) [Mass/Vol]Hemoglobin [Mass/volume] in FoqiyBfw16.0-17.0[facility] CenterLeukocytes [#/volume] corrected for nucleated erythrocytes in Blood by Automated counOrdered By: Talib Faustin on 51-90-3762MDG corrected for nucl RBC Auto (Bld) [#/Vol]Leukocytes [#/volume] corrected for nucleated erythrocytes in Blood by Automated coun4.1-10.5FBarnesville Hospital Lymphocytes Auto (Bld) [#/Vol]Ordered By: Talib Faustin on 08-16-2024 Lymphocytes (Bld) [#/Vol]Lymphocytes [#/volume] in Blood by Automated countLow 1.00-4.8[facility] CenterLymphocytes/100 WBC Auto (Bld)Ordered By: rick Faustin on 73-62-3124Ineywgkttnu/100 WBC (Bld)Lymphocytes/100 leukocytes in Blood by Automated count.[facility] HospitalH Auto (RBC) [Entitic mass]Ordered By: Talib Faustin on 97-73-4408EJE (RBC) [Entitic mass]MCH [Entitic mass] by Automated count27.5-35.2FBarnesville HospitalMCHC Auto (RBC) [Mass/Vol]Ordered By: Talib Faustin on 79-80-6002LXEV (RBC) [Mass/Vol]MCHC [Mass/volume] by Automated count32.5-35.6FBarnesville HospitalMCV Auto (RBC) [Entitic vol]Ordered By: Talib Faustin on 45-76-9880HML (RBC) [Entitic vol]MCV [Entitic volume] by Automated count83.5-101 [facility] CenterMonocytes Auto (Bld) [#/Vol]Ordered By: Talib Hargrove on 08-29-9263Yysqnstrp (Bld) [#/Vol]Automated blood monocyte countHigh 0.0-0.8[facility] CenterMonocytes/100 WBC Auto (Bld)Ordered By: Talib Faustin on 25-24-9625Zkjqnckqw/100 WBC (Bld)Automated monocyte %. [facility] CenterNeutrophils Auto (Bld) [#/Vol]Ordered By: Talib Faustin on 63-83-9651Nwihpndcawm (Bld) [#/Vol]Neutrophils [#/volume] in Blood by Automated count1.8-7.7FBarnesville HospitalNeutrophils/100 WBC Auto (Bld)Ordered By: Talib Faustin on 82-49-9705Phlpdoxwphp/100 WBC (Bld) Automated neutrophil %.[facility] CenterNo Panel Information Ordered By: Talib Faustin on 81-76-8898Vrrsfzzbx GFR (CKD-EPI)> 60.0 mL/Min [facility] CenterPharmacy Creatinine Clearance (Chem59.79 [facility] CenterNucleated erythrocytes [Presence] in Blood by Automated countOrdered By: Talib Faustin on 48-52-7857Bmfmvqtkd RBC Auto Ql (Bld)Nucleated erythrocytes [Presence] in Blood by Automated count0-0.5FBarnesville HospitalPlatelet mean volume Auto (Bld) [Entitic vol]Ordered By: Talib Faustin on 32-24-8098Xqdesqbd mean volume (Bld) [Entitic vol]Platelet mean volume [Entitic volume] in Blood by Automated count6.6-10.1FBarnesville HospitalPlatelets Auto (Bld) [#/Vol]Ordered By: Talib Faustin on 83-14-8273Slyiybfah (Bld) [#/Vol]Platelets [#/volume] in Blood by Automated -926MjjkqtijxLakehealth Tripoint Medical CenterPotassium [Moles/volume] in Serum or PlasmaOrdered By: Talib Faustin on 86-72-3115Rbbhxkcpu [Moles/Vol]Potassium [Moles/volume] in Serum or Plasma3.5-5.1FBarnesville HospitalProtein [Mass/volume] in Serum or PlasmaOrdered By: Talib Faustin on 36-06-0946Mcqcomd [Mass/Vol]Protein [Mass/volume] in Serum or PlasmaLow6.4-8.9[facility] Medical CenterRBC Auto (Bld) [#/Vol]Ordered By: Talib Faustin on 72-05-8688JPD (Bld) [#/Vol]Erythrocytes [#/volume] in Blood by Automated countLow3.90-5.60 Barnesville Hospitalerum or plasma albumin/globulin mass ratio Ordered By: Talib Faustin on 39-64-1760Dvujbbo/Globulin [Mass ratio]Serum or plasma albumin/globulin mass ratioBarnesville Hospitalerum or plasma anion gap determinationOrdered By: Talib Faustin on 64-50-4785Ebrxc gap [Moles/Vol]Serum or plasma anion gap determination6.0-15.0Barnesville Hospitalodium [Moles/volume] in Serum or PlasmaOrdered By: Talib Faustin on 11-91-6842Vhwjez [Moles/Vol]Sodium [Moles/volume] in Serum or Dkpzjr451-450 [facility] CenterUrea nitrogen [Mass/volume] in Serum or Plasma Ordered By: Talib Faustin on 82-53-5887Kblg nitrogen [Mass/Vol]Urea nitrogen [Mass/volume] in Serum or Plasma7-25[facility] Medical CenterWBC Auto (Bld) [#/Vol]Ordered By: Talib Faustin on 17-96-9151XEP (Bld) [#/Vol]Leukocytes [#/volume] in Blood by Automated count4.1-10.5FBarnesville Hospital Complete Blood Count Auto Diffon 20-57-0999Rllaoglfc (Bld) [#/Vol]0.0 10*3/uL Normal0.0-0.2The [facility] Physician GroupComment on above:Result Comment: PERFORMED BY: [place] [address] [place] [address] PATHOLOGIST ADVERTISING REPRESENTATIVE HEBER SHANNON M.D.Performed By: #### CMP, CBC #### [facility] [address] [place] [address] USABasophils/100 WBC (Bld)0.4 %Normal.The [facility] Physician GroupComment on above:Performed By: #### CMP, CBC #### [facility] [address] [place] [address] USAEosinophils (Bld) [#/Vol]0.0 10*3/uLNormal0.0-0.45The [facility] Physician GroupComment on above:Performed By: #### CMP, CBC #### [facility] [address] [place] [address] USAEosinophils/100 WBC (Bld)0.5 %Normal.The [facility] Physician GroupComment on above:Performed By: #### CMP, CBC #### [place] [address] USAErythrocyte distribution width (RBC) [Ratio]14.7 %Normal 12.0-14.8The [facility] Physician GroupComment on above:Performed By: #### CMP, CBC #### [place] [address] USAHematocrit (Bld) [Volume fraction]36.9 %Low38.8-50.0The [facility] Physician GroupComment on above:Performed By: #### CMP, CBC #### [place] [address] USAHemoglobin (Bld) [Mass/Vol]12.4 g/dLLow13.0-17.0The [facility] Physician GroupComment on above:Performed By: #### CMP, CBC #### [place] [address] USALymphocytes (Bld) [#/Vol]0.6 10*3/uLLow1.00-4.8The [facility] Physician GroupComment on above:Performed By: #### CMP, CBC #### [place] [address] USALymphocytes/100 WBC (Bld)7.4 %Normal.The [facility] Physician GroupComment on above:Performed By: #### CMP, CBC #### [place] [address] USAH (RBC) [Entitic mass]30.9 pgVeowuo93.5-35.2The [facility] Physician GroupComment on above:Performed By: #### CMP, CBC #### [place] [address] USAV (RBC) [Entitic vol]92.2 bRKwedkz36.5-101The [facility] Physician GroupComment on above:Performed By: #### CMP, CBC #### [place] [address] USAMean Corpuscular HGB Conc33.6 g/qVYqncor06.5-35.6The [facility] Physician GroupComment on above:Performed By: #### CMP, CBC #### [place] [address] USAMonocytes (Bld) [#/Vol]0.8 10*3/uLNormal0.0-0.8The [facility] Physician GroupComment on above:Performed By: #### CMP, CBC #### [place] [address] USAMonocytes/100 WBC (Bld)8.9 %Normal.The [facility] Physician GroupComment on above:Performed By: #### CMP, CBC #### [place] [address] USANeutrophils (Bld) [#/Vol]7.2 10*3/uLNormal1.8-7.7The [facility] Physician GroupComment on above:Performed By: #### CMP, CBC #### [place] [address] USANeutrophils/100 WBC (Bld)82.8 %Normal.The [facility] Physician GroupComment on above:Performed By: #### CMP, CBC #### [place] [address] USANRBC%0.1 /100{WBC}Normal0-0.5The [facility] Comment on above:Performed By: #### CMP, CBC #### [facility] [address] [place] [address] USAPlatelet mean volume (Bld) [Entitic vol]7.9 fLNormal 6.6-10.1The [facility] Physician GroupComment on above:Performed By: #### CMP, CBC #### [facility] [address] [place] [address] USAPlatelets (Bld) [#/Vol]245 10*3/hOGvwnoy378-074Wpf [facility] Physician GroupComment on above:Performed By: #### CMP, CBC #### [place] [address] USARBC (Bld) [#/Vol]4.00 10*6/uLNormal3.90-5.60The [facility] Physician GroupComment on above:Performed By: #### CMP, CBC #### [facility] [address] [place] [address] USAWBC (Bld) [#/Vol]8.7 10*3/uLNormal4.1-10.5The [facility] Physician GroupComment on above:Performed By: #### CMP, CBC #### [place] [address] USAComprehensive Metabolic Panelon 37-94-3146Zpmoqid [Mass/Vol]3.7 g/dLNormal3.5-5.7The [facility] Physician GroupComment on above: Performed By: #### CMP, CBC #### [facility] [address] [place] [address] USAAlbumin/Globulin [Mass ratio]1.2 {ratio}NormalThe [facility] Physician GroupComment on above:Performed By: #### CMP, CBC #### [place] [address] USAALP [Catalytic activity/Vol]69 U/NEdiuom14-761Xsd [facility] Physician GroupComment on above:Performed By: #### CMP, CBC #### [facility] [address] [place] [address] USAALT [Catalytic activity/Vol]18 U/LNormal7-52The [facility] Physician GroupComment on above:Performed By: #### CMP, CBC #### [facility] [address] [place] [address] USAAnion gap [Moles/Vol]10.4 mmol/LNormal6.0-15.0The [facility] Physician GroupComment on above:Performed By: #### CMP, CBC #### [facility] [address] [place] [address] USAAST [Catalytic activity/Vol]18 U/TGlhyif02-08Crg [facility] Physician GroupComment on above:Performed By: #### CMP, CBC #### [facility] [address] [place] [address] USABilirubin [Mass/Vol]0.4 mg/dLNormal0.3-1.0The [facility] Physician GroupComment on above:Performed By: #### CMP, CBC #### [facility] [address] [place] [address] USACalcium [Mass/Vol]9.4 mg/dLNormal8.6-10.3The [facility] Physician GroupComment on above:Performed By: #### CMP, CBC #### [facility] [address] [place] [address] USAChloride [Moles/Vol]102 mmol/MEwmkci88-644Oui [facility] Physician GroupComment on above:Performed By: #### CMP, CBC #### [facility] [address] [place] [id number] USACO2 [Moles/Vol]26.5 mmol/NArprwr20.0-31.0The [facility] Physician GroupComment on above:Performed By: #### CMP, CBC #### [facility] [address] [place], [place] [id number] USACreatinine [Mass/Vol]0.91 mg/dLNormal0.70-1.30The [facility] Physician GroupComment on above:Performed By: #### CMP, CBC #### [facility] [address] [place] [address] USACreatinine Clr Calc Fobnmldh69.53NormHialeah Hospital Physician GroupComment on above:Result Comment: PERFORMED BY: [place] [address] PATHOLOGIST ADVERTISING REPRESENTATIVE HEBER SHANNON M.D.Performed By: #### CMP, CBC #### [place] [address] USAGFR/1.73 sq M.predicted MDRD (S/P/Bld) [Vol rate/Area] mL/min/{1.73_m2}NormalThe [facility] Physician GroupComment on above:Performed By: #### CMP, CBC #### [place] [address] USAGlobulin (S) [Mass/Vol]3.0 g/dLPhysicians Regional Medical Center - Collier Boulevard Physician GroupComment on above:Performed By: #### CMP, CBC #### [place] [address] USAGlucose [Mass/Vol]163 mg/cJAaqc83-385Wmf [facility] Physician GroupComment on above:Result Comment: Random Glucose Reference Range is dependent on time and content of last meal. Glucose of more than 200 mg/dL in a nonstressed, ambulatory subject supports the diagnosis of Diabetes Mellitus. ADA recommended reference rangePerformed By: #### CMP, CBC #### [place] [address] USAPotassium [Moles/Vol]3.9 mmol/LNormal3.5-5.1The [facility] Physician GroupComment on above:Performed By: #### CMP, CBC #### [place] [address] USAProtein [Mass/Vol]6.7 g/dLNormal6.4-8.9The [facility] Physician GroupComment on above:Performed By: #### CMP, CBC #### [place] [address] USASodium [Moles/Vol]135 mmol/SFup159-558Ygq [facility] Physician GroupComment on above:Performed By: #### CMP, CBC #### [place] [address] USAUrea nitrogen [Mass/Vol]31 mg/dLHigh7-25The [facility] Physician GroupComment on above:Performed By: #### CMP, CBC #### [place] [address] USAComplete Blood Count Auto Diffon 11-15-5087Cabnamgnf (Bld) [#/Vol]0.1 10*3/uLNormal0.0-0.2The [facility] Physician GroupComment on above: Result Comment: PERFORMED BY: [place] [address] PATHOLOGIST ADVERTISING REPRESENTATIVE HEBER SHANNON M.D.Performed By: #### MG, SCAN CBC, CMP #### [place] [address] USABasophils/100 WBC (Bld)1.0 %Normal.The [facility] Physician GroupComment on above:Performed By: #### MG, SCAN CBC, CMP #### [place] [address] USAEosinophils (Bld) [#/Vol]0.0 10*3/uLNormal0.0-0.45The [facility] Physician GroupComment on above:Performed By: #### MG, SCAN CBC, CMP #### [place] [address] USAEosinophils/100 WBC (Bld)0.6 %Normal.The [facility] Physician GroupComment on above:Performed By: #### MG, SCAN CBC, CMP #### [place] [address] USAErythrocyte distribution width (RBC) [Ratio]14.0 %Normal 12.0-14.8The [facility] Physician GroupComment on above:Performed By: #### MG, SCAN CBC, CMP #### [place] [address] USAHematocrit (Bld) [Volume fraction]35.5 %Low38.8-50.0The [facility] Physician GroupComment on above:Performed By: #### MG, SCAN CBC, CMP #### [place] [address] USAHemoglobin (Bld) [Mass/Vol]12.1 g/dLLow13.0-17.0The [facility] Physician GroupComment on above:Performed By: #### MG, SCAN CBC, CMP #### [place] [address] USALymphocytes (Bld) [#/Vol]0.6 10*3/uLLow1.00-4.8The [facility] Physician GroupComment on above:Performed By: #### MG, SCAN CBC, CMP #### [place] [address] USALymphocytes/100 WBC (Bld)10.3 %Normal.The [facility] Physician GroupComment on above:Performed By: #### MG, SCAN CBC, CMP #### [place] [address] USAMCH (RBC) [Entitic mass]31.4 raLgqfra61.5-35.2The [facility] Physician GroupComment on above:Performed By: #### MG, SCAN CBC, CMP #### [place] [address] USAMCV (RBC) [Entitic vol]92.2 pVGreyxc38.5-101The [facility] Physician GroupComment on above:Performed By: #### MG, SCAN CBC, CMP #### [place] [address] USAMean Corpuscular HGB Conc34.0 g/aKXxjfqd86.5-35.6The [facility] Physician GroupComment on above:Performed By: #### MG, SCAN CBC, CMP #### [place] [address] USAMonocytes (Bld) [#/Vol]0.9 10*3/uLHigh0.0-0.8The [facility] Physician GroupComment on above:Performed By: #### MG, SCAN CBC, CMP #### [facility] [address] [place] [address] USAMonocytes/100 WBC (Bld)14.8 %Normal.The [facility] Physician GroupComment on above:Performed By: #### MG, SCAN CBC, CMP #### [facility] [address] [place] [address] USANeutrophils (Bld) [#/Vol]4.5 10*3/uLNormal1.8-7.7The [facility] Physician GroupComment on above:Performed By: #### MG, SCAN CBC, CMP #### [place] [address] USANeutrophils/100 WBC (Bld)73.3 %Normal.The [facility] Physician GroupComment on above:Performed By: #### MG, SCAN CBC, CMP #### [place] [address] USANRBC%0.1 /100{WBC}Normal0-0.5The [facility] Comment on above:Performed By: #### MG, SCAN CBC, CMP #### [place] [address] USAPlatelet mean volume (Bld) [Entitic vol]7.4 fLNormal 6.6-10.1The [facility] Physician GroupComment on above:Performed By: #### MG, SCAN CBC, CMP #### [place] [address] USAPlatelets (Bld) [#/Vol]215 10*3/bSXkgahs288-459Eyu [facility] Physician GroupComment on above:Performed By: #### MG, SCAN CBC, CMP #### [place] [address] USARBC (Bld) [#/Vol]3.85 10*6/uLLow3.90-5.60The [facility] Physician GroupComment on above:Performed By: #### MG, SCAN CBC, CMP #### [place] [address] USAWBC (Bld) [#/Vol]6.2 10*3/uLNormal4.1-10.5The [facility] Physician GroupComment on above:Performed By: #### MG, SCAN CBC, CMP #### [facility] [address] [place] [address] USAComprehensive Metabolic Panelon 71-16-1324Bklfjll [Mass/Vol]3.6 g/dLNormal3.5-5.7The [facility] Physician GroupComment on above: Performed By: #### MG, SCAN CBC, CMP #### [facility] [address] [place] [address] USAAlbumin/Globulin [Mass ratio]1.3 {ratio}NormalThe [facility] Physician GroupComment on above:Performed By: #### MG, SCAN CBC, CMP #### [place] [address] USAALP [Catalytic activity/Vol]75 U/LZsecoo28-216Ngj [facility] Physician GroupComment on above:Performed By: #### MG, SCAN CBC, CMP #### [place] [address] USAALT [Catalytic activity/Vol]12 U/LNormal7-52The [facility] Physician GroupComment on above:Performed By: #### MG, SCAN CBC, CMP #### [place] [address] USAAnion gap [Moles/Vol]10.1 mmol/LNormal6.0-15.0The [facility] Physician GroupComment on above:Performed By: #### MG, SCAN CBC, CMP #### [place] [address] USAAST [Catalytic activity/Vol]13 U/YZdxtdv90-49Vbw [facility] Physician GroupComment on above:Performed By: #### MG, SCAN CBC, CMP #### [facility] [address] [place] [address] USABilirubin [Mass/Vol]0.5 mg/dLNormal0.3-1.0The [facility] Physician GroupComment on above:Performed By: #### MG, SCAN CBC, CMP #### [address] [place] [address] USACalcium [Mass/Vol]8.5 mg/dLLow8.6-10.3The [facility] Physician GroupComment on above:Performed By: #### MG, SCAN CBC, CMP #### [facility] [address] [place] [address] USAChloride [Moles/Vol]103 mmol/EPgajyb50-147Xvn [facility]ician GroupComment on above:Performed By: #### MG, SCAN CBC, CMP #### [facility] [address] [place] [address] USACO2 [Moles/Vol]27.1 mmol/JDhyndm95.0-31.0The [facility] Physician GroupComment on above:Performed By: #### MG, SCAN CBC, CMP #### [place] [address] USACreatinine [Mass/Vol]1.03 mg/dLNormal0.70-1.30The [facility] Physician GroupComment on above:Performed By: #### MG, SCAN CBC, CMP #### [place] [address] USACreatinine Clr Calc Yiosduku81.18NormHialeah Hospital Physician GroupComment on above:Result Comment: PERFORMED BY: [place] [address] PATHOLOGIST ADVERTISING REPRESENTATIVE HEBER SHANNON M.D.Performed By: #### MG, SCAN CBC, CMP #### [place] [address] USAGFR/1.73 sq M.predicted MDRD (S/P/Bld) [Vol rate/Area] mL/min/{1.73_m2}NormalThe [facility] Physician GroupComment on above:Performed By: #### MG, SCAN CBC, CMP #### [facility] [address] [place] [address] USAGlobulin (S) [Mass/Vol]2.7 g/dLNoCone Health Moses Cone Hospital Physician GroupComment on above:Performed By: #### MG, SCAN CBC, CMP #### [facility] [address] [place] [address] USAGlucose [Mass/Vol]120 mg/vYWkxt69-830Nry [facility] Physician GroupComment on above:Result Comment: Random Glucose Reference Range is dependent on time and content of last meal. Glucose of more than 200 mg/dL in a nonstressed, ambulatory subject supports the diagnosis of Diabetes Mellitus. ADA recommended reference rangePerformed By: #### MG, SCAN CBC, CMP #### [facility] [address] [place] [address] USAPotassium [Moles/Vol]4.2 mmol/LNormal3.5-5.1The [facility] Physician GroupComment on above:Performed By: #### MG, SCAN CBC, CMP #### [place] [address] USAProtein [Mass/Vol]6.3 g/dLLow6.4-8.9The [facility]ician GroupComment on above:Performed By: #### MG, SCAN CBC, CMP #### [place] [address] USASodium [Moles/Vol]136 mmol/VNqvkwy450-958Wkv [facility] Physician GroupComment on above:Performed By: #### MG, SCAN CBC, CMP #### [place] [address] USAUrea nitrogen [Mass/Vol]35 mg/dLHigh7-25The [facility] Physician GroupComment on above:Performed By: #### MG, SCAN CBC, CMP #### [place] [address] USAAlanine aminotransferase [Enzymatic activity/volume] in Serum or PlasmaOrdered By: Talib Faustin on 52-90-6205VGP [Catalytic activity/Vol]Alanine aminotransferase [Enzymatic activity/volume] in Serum or PlasmaLakehealth Tripoint Medical CenterAlbumin [Mass/volume] in Serum or Plasma by Bromocresol green (BCG) dye binding methoOrdered By: Talib Faustin on 15-84-9019Btixkts BCG dye [Mass/Vol]Albumin [Mass/volume] in Serum or Plasma by Bromocresol green (BCG) dye binding metho3.5-5.7FBarnesville HospitalAlkaline phosphatase [Enzymatic activity/volume] in Serum or PlasmaOrdered By: Talib Faustin on 48-33-5071KDF [Catalytic activity/Vol]Alkaline phosphatase [Enzymatic activity/volume] in Serum or Dqvksq03-759SqkzzwmvbLakehealth Tripoint Medical CenterAspartate aminotransferase [Enzymatic activity/volume] in Serum or Plasma Ordered By: Talib Faustin on 25-35-4119JVH [Catalytic activity/Vol]Aspartate aminotransferase [Enzymatic activity/volume] in Serum or Drmlvs87-86NgpkgwrwvLakehealth Tripoint Medical CenterBasophils Auto (Bld) [#/Vol]Ordered By: Talib Faustin on 15-02-8703Fnmxkavsp (Bld) [#/Vol]Automated basophil count0.0-0.2FBarnesville HospitalBasophils/100 WBC Auto (Bld)Ordered By: Talib Faustin on 02-56-3274Kalqtcwuu/100 WBC (Bld)Automated basophil %.L[facility] Tri[facility] Medical CenterBilirubin.total [Mass/volume] in Serum or PlasmaOrdered By: Talib Faustin on 93-64-6883Cuajrhqby [Mass/Vol]Bilirubin.total [Mass/volume] in Serum or Plasma0.3-1.0[facility] Medical CenterCalcium [Mass/volume] in Serum or PlasmaOrdered By: Talib Faustin on 24-82-7642Hbnhuas [Mass/Vol]Calcium [Mass/volume] in Serum or Plasma8.6-10.3FBarnesville HospitalCarbon dioxide, total [Moles/volume] in Serum or PlasmaOrdered By: Talib Faustin on 14-35-0358GB8 [Moles/Vol]Carbon dioxide, total [Moles/volume] in Serum or Plasma 21.0-31.0[facility] Medical CenterChloride [Moles/volume] in Serum or PlasmaOrdered By: Talib Faustin on 30-96-3796Qdwzwrgv [Moles/Vol]Chloride [Moles/volume] in Serum or Nrirgd33-343AlejpfrgvLakehealth Tripoint Medical CenterComplete Blood Count Auto Diffon 37-20-0563Qrodygyrl (Bld) [#/Vol]0.1 10*3/uLNormal 0.0-0.2The [facility] Physician GroupComment on above:Result Comment: PERFORMED BY: [place] [address] PATHOLOGIST ADVERTISING REPRESENTATIVE HEBER SHANNON M.D.Performed By: #### ESR #### [place] [address] USABasophils/100 WBC (Bld)1.0 %Normal.The [facility] Physician GroupComment on above:Performed By: #### ESR #### [place] [address] USAEosinophils (Bld) [#/Vol]0.1 10*3/uLNormal0.0-0.45The [facility] Physician GroupComment on above:Performed By: #### ESR #### [place] [address] USAEosinophils/100 WBC (Bld)1.4 %Normal.The [facility] Physician GroupComment on above:Performed By: #### ESR #### [place] [address] USAErythrocyte distribution width (RBC) [Ratio]13.6 %Normal 12.0-14.8The [facility] Physician GroupComment on above:Performed By: #### ESR #### [place] [address] USAHematocrit (Bld) [Volume fraction]35.4 %Low38.8-50.0The [facility] Physician GroupComment on above:Performed By: #### ESR #### [place] [address] USAHemoglobin (Bld) [Mass/Vol]12.0 g/dLLow13.0-17.0The [facility] Physician GroupComment on above:Performed By: #### ESR #### [place] [address] USALymphocytes (Bld) [#/Vol]0.9 10*3/uLLow1.00-4.8The [facility] Physician GroupComment on above:Performed By: #### ESR #### [place] [address] USALymphocytes/100 WBC (Bld)13.0 %Normal.The [facility] Physician GroupComment on above:Performed By: #### ESR #### [address] (RBC) [Entitic mass]31.1 qyGpwnmb93.5-35.2The [facility] Physician GroupComment on above:Performed By: #### ESR #### [address] (RBC) [Entitic vol]91.5 wJVfwwim05.5-101The [facility] Physician GroupComment on above:Performed By: #### ESR #### [place] [address] USAMean Corpuscular HGB Conc34.0 g/lUHexltt32.5-35.6The [facility] Physician GroupComment on above:Performed By: #### ESR #### [place] [address] USAMonocytes (Bld) [#/Vol]0.7 10*3/uLNormal0.0-0.8The [facility] Physician GroupComment on above:Performed By: #### ESR #### [place] [address] USAMonocytes/100 WBC (Bld)9.8 %Normal.The [facility] Physician GroupComment on above:Performed By: #### ESR #### [place] [address] USANeutrophils (Bld) [#/Vol]5.1 10*3/uLNormal1.8-7.7The [facility] Physician GroupComment on above:Performed By: #### ESR #### [place] [address] USANeutrophils/100 WBC (Bld)74.8 %Normal.The [facility] Physician GroupComment on above:Performed By: #### ESR #### [facility] [address] [place] [address] USANRBC%0.1 /100{WBC}Normal0-0.5The [facility] Comment on above:Performed By: #### ESR #### [place] [address] USAPlatelet mean volume (Bld) [Entitic vol]7.4 fLNormal 6.6-10.1The [facility] Physician GroupComment on above:Performed By: #### ESR #### [place] [address] USAPlatelets (Bld) [#/Vol]217 10*3/jDOrdpeg562-358Hjx [facility] Physician GroupComment on above:Performed By: #### ESR #### [place] [address] USARBC (Bld) [#/Vol]3.87 10*6/uLLow3.90-5.60The [facility] Physician GroupComment on above:Performed By: #### ESR #### [place] [address] USAWBC (Bld) [#/Vol]6.9 10*3/uLNormal4.1-10.5The [facility] Physician GroupComment on above:Performed By: #### ESR #### [place] [address] USAComprehensive Metabolic Panelon 71-71-4946Qgyveur [Mass/Vol]3.7 g/dLNormal3.5-5.7The [facility] Physician GroupComment on above: Performed By: #### ESR #### [place] [address] USAAlbumin/Globulin [Mass ratio]1.3 {ratio}NormalThe [facility] Physician GroupComment on above:Performed By: #### ESR #### [place] [address] USAALP [Catalytic activity/Vol]80 U/QTecncr27-005Ltx [facility] Physician GroupComment on above:Performed By: #### ESR #### [facility] [address] [place] [address] USAALT [Catalytic activity/Vol]13 U/LNormal7-52The [facility] Physician GroupComment on above:Performed By: #### ESR #### [facility] [address] [place] [address] USAAnion gap [Moles/Vol]9.4 mmol/LNormal6.0-15.0The [facility] Physician GroupComment on above:Performed By: #### ESR #### [facility] [address] [place] [address] USAAST [Catalytic activity/Vol]14 U/XBpedod34-47Wby [facility] Physician GroupComment on above:Performed By: #### ESR #### [facility] [address] [place] [address] USABilirubin [Mass/Vol]0.5 mg/dLNormal0.3-1.0The [facility] Physician GroupComment on above:Performed By: #### ESR #### [facility] [address] [place] [address] USACalcium [Mass/Vol]8.9 mg/dLNormal8.6-10.3The [facility] Physician GroupComment on above:Performed By: #### ESR #### [facility] [address] [place] [address] USAChloride [Moles/Vol]104 mmol/DSuggdu51-185Aec [facility] Physician GroupComment on above:Performed By: #### ESR #### [facility] [address] [place] [address] USACO2 [Moles/Vol]26.8 mmol/DWweeee02.0-31.0The [facility] Physician GroupComment on above:Performed By: #### ESR #### [facility] [address] [place] [address] USACreatinine [Mass/Vol]0.87 mg/dLNormal0.70-1.30The [facility] Physician GroupComment on above:Performed By: #### ESR #### [place] [address] USACreatinine Clr Calc Lchmsoeu94.04NoCone Health Moses [facility] Hospital Physician GroupComment on above:Result Comment: PERFORMED BY: [place] [address] PATHOLOGIST ADVERTISING REPRESENTATIVE HEBER SHANNON M.D.Performed By: #### ESR #### [place] [address] USAGFR/1.73 sq M.predicted MDRD (S/P/Bld) [Vol rate/Area] mL/min/{1.73_m2}NormalThe [facility] Physician GroupComment on above:Performed By: #### ESR #### [place] [address] USAGlobulin (S) [Mass/Vol]2.9 g/dLPhysicians Regional Medical Center [facility] Boulevard Physician GroupComment on above:Performed By: #### ESR #### [place] [address] USAGlucose [Mass/Vol]107 mg/qHYrxv80-943Ryx [facility] Physician GroupComment on above:Result Comment: Random Glucose Reference Range is dependent on time and content of last meal. Glucose of more than 200 mg/dL in a nonstressed, ambulatory subject supports the diagnosis of Diabetes Mellitus. ADA recommended reference rangePerformed By: #### ESR #### [place] [address] USAPotassium [Moles/Vol]4.2 mmol/LNormal3.5-5.1The [facility] Physician GroupComment on above:Performed By: #### ESR #### [place] [address] USAProtein [Mass/Vol]6.6 g/dLNormal6.4-8.9The [facility] Physician GroupComment on above:Performed By: #### ESR #### [place] [address] USASodium [Moles/Vol]136 mmol/IXugvef622-986Hsz [facility] Physician GroupComment on above:Performed By: #### ESR #### [facility] [address] [place] [address] USAUrea nitrogen [Mass/Vol]30 mg/dLHigh7-25The [facility] Physician GroupComment on above:Performed By: #### ESR #### [facility] [address] [place] [address] USACreatinine [Mass/volume] in Serum or PlasmaOrdered By: Talib Faustin on 86-45-4365Zuqpzqxeus [Mass/Vol]Creatinine [Mass/volume] in Serum or Plasma0.70-1.30[facility] CenterEosinophils Auto (Bld) [#/Vol]Ordered By: Talib Faustin on 37-30-9290Xtwyopjunor (Bld) [#/Vol] Automated eosinophil count0.0-0.45[facility] Eosinophils/100 WBC Auto (Bld)Ordered By: rick Faustin on 07-26-2024 Eosinophils/100 WBC (Bld)Automated eosinophil %.[facility] CenterErythrocyte distribution width Auto (RBC) [Ratio]Ordered By: Talib Hargrove on 58-62-5655Dvawfsffrsw distribution width (RBC) [Ratio]Erythrocyte distribution width [Ratio] by Automated count12.0-14.8[facility] CenterGlobulin Calc (S) [Mass/Vol]Ordered By: Talib Faustin on 07-26-2024 Globulin (S) [Mass/Vol]Serum globulin measurement by calculation (mass/volume) [facility] CenterGlucose [Mass/volume] in Serum or PlasmaOrdered By: Talib Faustin on 84-48-8420Czoemhi [Mass/Vol]Glucose [Mass/volume] in Serum or TulmqmIgvp25-129UvjibrggmLakehealth Tripoint Medical CenterComment on above:ADA recommended reference rangeRandom Glucose Reference Range is dependent on time and content of last meal. Glucose of more than 200 mg/dL in a nonstressed, ambulatory subject supports the diagnosisof Diabetes Mellitus.Hematocrit Auto (Bld) [Volume fraction]Ordered By: Talib Faustin on 89-58-9667Ntgshaqouy (Bld) [Volume fraction]Hematocrit [Volume Fraction] of Blood by Automated countLow 38.8-50.0[facility] CenterHemoglobin [Mass/volume] in Blood Ordered By: Talib Faustin on 71-72-3505Hrullgvbqf (Bld) [Mass/Vol]Hemoglobin [Mass/volume] in PdjnbZrh09.0-17.0[facility] CenterLeukocytes [#/volume] corrected for nucleated erythrocytes in Blood by Automated coun Ordered By: Talib Faustin on 46-77-9234GLT corrected for nucl RBC Auto (Bld) [#/Vol]Leukocytes [#/volume] corrected for nucleated erythrocytes in Blood by Automated coun4.1-10.5FBarnesville HospitalLymphocytes Auto (Bld) [#/Vol]Ordered By: Talib Faustin on 80-64-8312Zkzrqymeiiu (Bld) [#/Vol] Lymphocytes [#/volume] in Blood by Automated countLow1.00-4.8[facility] CenterLymphocytes/100 WBC Auto (Bld)Ordered By: Talib Faustin on 86-79-6759Asesvbyvemn/100 WBC (Bld)Lymphocytes/100 leukocytes in Blood by Automated count.[facility] Medical CenterMCH Auto (RBC) [Entitic mass] Ordered By: Talib Faustin on 76-34-8416QBL (RBC) [Entitic mass]MCH [Entitic mass] by Automated count27.5-35.2FBarnesville HospitalMCHC Auto (RBC) [Mass/Vol]Ordered By: Talib Faustin on 64-60-6524QZLC (RBC) [Mass/Vol] MCHC [Mass/volume] by Automated count32.5-35.6FBarnesville Hospital MCV Auto (RBC) [Entitic vol]Ordered By: Talib Faustin on 84-67-5410WUR (RBC) [Entitic vol]MCV [Entitic volume] by Automated count83.5-101[facility] Medical CenterMonocytes Auto (Bld) [#/Vol]Ordered By: Talib Faustin on 50-75-1990Vywaqzcrt (Bld) [#/Vol]Automated blood monocyte count0.0-0.8[facility] CenterMonocytes/100 WBC Auto (Bld)Ordered By: Talib Faustin on 18-84-3309Qwkravpfv/100 WBC (Bld)Automated monocyte %.[facility] CenterNeutrophils Auto (Bld) [#/Vol]Ordered By: Talib Faustin on 22-36-4147Zdyehspfufh (Bld) [#/Vol]Neutrophils [#/volume] in Blood by Automated count1.8-7.7FBarnesville HospitalNeutrophils/100 WBC Auto (Bld) Ordered By: Talib Faustin on 08-64-3389Mreoghukwsk/100 WBC (Bld)Automated neutrophil %.[facility] CenterNo Panel InformationOrdered By: Talib Faustin on 11-56-3634Rudsexgqp GFR (CKD-EPI)> 60.0 mL/MinLakehealth Tripoint Medical CenterPharmacy Creatinine Clearance (Chem57.04[facility] Medical CenterNucleated erythrocytes [Presence] in Blood by Automated countOrdered By: Talib Faustin on 07-55-8781Rdykamvcr RBC Auto Ql (Bld) Nucleated erythrocytes [Presence] in Blood by Automated count0-0.5FBarnesville HospitalPlatelet mean volume Auto (Bld) [Entitic vol]Ordered By: Talib Faustin on 79-76-3399Friinzkt mean volume (Bld) [Entitic vol]Platelet mean volume [Entitic volume] in Blood by Automated count6.6-10.1FBarnesville HospitalPlatelets Auto (Bld) [#/Vol]Ordered By: Talib Faustin on 73-35-0685Dvidibnbb (Bld) [#/Vol]Platelets [#/volume] in Blood by Automated wdefz509-061AsugoajnkLakehealth Tripoint Medical CenterPotassium [Moles/volume] in Serum or PlasmaOrdered By: Talib Faustin on 79-81-9526Edgthbcva [Moles/Vol]Potassium [Moles/volume] in Serum or Plasma3.5-5.1FBarnesville HospitalProtein [Mass/volume] in Serum or PlasmaOrdered By: Talib Faustin on 88-19-6371Vuavjhv [Mass/Vol]Protein [Mass/volume] in Serum or Plasma6.4-8.9[facility] Medical CenterRBC Auto (Bld) [#/Vol]Ordered By: Talib Faustin on 72-59-4097VRC (Bld) [#/Vol]Erythrocytes [#/volume] in Blood by Automated countLow3.90-5.60 [facility] Hospitalerum or plasma albumin/globulin mass ratio Ordered By: rick Faustin on 86-31-8758Fayzrux/Globulin [Mass ratio]Serum or plasma albumin/globulin mass ratioBarnesville Hospitalerum or plasma anion gap determinationOrdered By: Talib Faustin on 47-12-1640Vnrlh gap [Moles/Vol]Serum or plasma anion gap determination6.0-15.0Barnesville Hospitalodium [Moles/volume] in Serum or PlasmaOrdered By: Talib Faustin on 60-98-3811Abndgi [Moles/Vol]Sodium [Moles/volume] in Serum or Jzgjgk714-011 [facility] CenterUrea nitrogen [Mass/volume] in Serum or Plasma Ordered By: Talib Faustin on 06-59-4832Yctg nitrogen [Mass/Vol]Urea nitrogen [Mass/volume] in Serum or PlasmaHigh7-25[facility] CenterWBC Auto (Bld) [#/Vol]Ordered By: Talib Faustin on 03-55-6148OPU (Bld) [#/Vol] Leukocytes [#/volume] in Blood by Automated count4.1-10.5FBarnesville HospitalComplete Blood Count Auto Diffon 36-01-0438Bybxzycib (Bld) [#/Vol] 0.0 10*3/uLNormal0.0-0.2The [facility] Physician GroupComment on above:Result Comment: PERFORMED BY: [facility] [address] [place] [address] PATHOLOGIST ADVERTISING REPRESENTATIVE HEBER SHANNON M.D.Performed By: #### MG, CMP, CBC #### [place] [address] USAPerformed By: #### MG, SCAN CBC, CMP #### [place] [address] USABasophils/100 WBC (Bld)0.5 %Normal.The [facility] Physician GroupComment on above:Performed By: #### MG, CMP, CBC #### [place] [address] USAPerformed By: #### MG, SCAN CBC, CMP #### [place] [address] USAEosinophils (Bld) [#/Vol]0.1 10*3/uLNormal0.0-0.45The [facility] Physician GroupComment on above:Performed By: #### MG, CMP, CBC #### [place] [address] USAPerformed By: #### MG, SCAN CBC, CMP #### [place] [address] USAEosinophils/100 WBC (Bld)1.4 %Normal.The [facility] Physician GroupComment on above:Performed By: #### MG, CMP, CBC #### [place] [address] USAPerformed By: #### MG, SCAN CBC, CMP #### [place] [address] USAErythrocyte distribution width (RBC) [Ratio]13.4 %Normal 12.0-14.8The [facility] Physician GroupComment on above:Performed By: #### MG, CMP, CBC #### [place] [address] USAPerformed By: #### MG, SCAN CBC, CMP #### [place] [address] USAHematocrit (Bld) [Volume fraction]35.7 %Low38.8-50.0The [facility] Physician GroupComment on above:Performed By: #### MG, CMP, CBC #### [place] [address] USAPerformed By: #### MG, SCAN CBC, CMP #### [place] [address] USAHemoglobin (Bld) [Mass/Vol]12.0 g/dLLow13.0-17.0The [facility] Physician GroupComment on above:Performed By: #### MG, CMP, CBC #### [place] [address] USAPerformed By: #### MG, SCAN CBC, CMP #### [place] [address] USALymphocytes (Bld) [#/Vol]1.3 10*3/uLNormal1.00-4.8The [facility] Physician GroupComment on above:Performed By: #### MG, CMP, CBC #### [place] [address] USAPerformed By: #### MG, SCAN CBC, CMP #### [place] [address] USALymphocytes/100 WBC (Bld)11.6 %Normal.The [facility] Physician GroupComment on above:Performed By: #### MG, CMP, CBC #### [place] [address] USAPerformed By: #### MG, SCAN CBC, CMP #### [place] [address] USAH (RBC) [Entitic mass]30.7 huEvqebs42.5-35.2The [facility] Physician GroupComment on above:Performed By: #### MG, CMP, CBC #### [place] [address] USAPerformed By: #### MG, SCAN CBC, CMP #### [place] [address] USAMCV (RBC) [Entitic vol]91.3 kABwxtdz74.5-101The [facility] Physician GroupComment on above:Performed By: #### MG, CMP, CBC #### [place] [address] USAPerformed By: #### MG, SCAN CBC, CMP #### [place] [address] USAMean Corpuscular HGB Conc33.7 g/gUWoypyy56.5-35.6The [facility] Physician GroupComment on above:Performed By: #### MG, CMP, CBC #### [place] [address] USAPerformed By: #### MG, SCAN CBC, CMP #### [place] [address] USAMonocytes (Bld) [#/Vol]0.8 10*3/uLNormal0.0-0.8The [facility] Physician GroupComment on above:Performed By: #### MG, CMP, CBC #### [place] [address] USAPerformed By: #### MG, SCAN CBC, CMP #### [place] [address] USAMonocytes/100 WBC (Bld)7.4 %Normal.The [facility] Physician GroupComment on above:Performed By: #### MG, CMP, CBC #### [place] [address] USAPerformed By: #### MG, SCAN CBC, CMP #### [place] [address] USANeutrophils (Bld) [#/Vol]8.7 10*3/uLHigh1.8-7.7The [facility] Physician GroupComment on above:Performed By: #### MG, CMP, CBC #### [place] [address] USAPerformed By: #### MG, SCAN CBC, CMP #### [place] [address] USANeutrophils/100 WBC (Bld)79.1 %Normal.The [facility] Physician GroupComment on above:Performed By: #### MG, CMP, CBC #### [place] [address] USAPerformed By: #### MG, SCAN CBC, CMP #### [place] [address] USANRBC%0.1 /100{WBC}Normal0-0.5The [facility] Comment on above:Performed By: #### MG, CMP, CBC #### [place] [address] USAPerformed By: #### MG, SCAN CBC, CMP #### [place] [address] USAPlatelet mean volume (Bld) [Entitic vol]7.9 fLNormal 6.6-10.1The [facility] Physician GroupComment on above:Performed By: #### MG, CMP, CBC #### [place] [address] USAPerformed By: #### MG, SCAN CBC, CMP #### [place] [address] USAPlatelets (Bld) [#/Vol]179 10*3/vLZuxuns431-341Jue [facility] Physician GroupComment on above:Performed By: #### MG, CMP, CBC #### [place] [address] USAPerformed By: #### MG, SCAN CBC, CMP #### [place] [address] USARBC (Bld) [#/Vol]3.91 10*6/uLNormal3.90-5.60The [facility] Physician [facility] CenterComment on above:Performed By: #### MG, CMP, CBC #### [place] [address] USAPerformed By: #### MG, SCAN CBC, CMP #### [place] [address] USAWBC (Bld) [#/Vol]11.0 10*3/uLHigh4.1-10.5The [facility] Physician GroupComment on above:Performed By: #### MG, CMP, CBC #### [facility] [address] [place] [address] USAPerformed By: #### MG, SCAN CBC, CMP #### [facility] [address] [place] [address] USAComprehensive Metabolic Panelon 55-58-2249Ztperoy [Mass/Vol]3.8 g/dLNormal3.5-5.7The [facility] Physician GroupComment on above: Performed By: #### MG, CMP, CBC #### [facility] [address] [place] [address] USAPerformed By: #### UA #### [place] [address] USAAlbumin/Globulin [Mass ratio]1.5 {ratio}NormalThe [facility] Physician [facility] CenterComment on above:Performed By: #### MG, CMP, CBC #### [facility] [address] [place] [address] USAPerformed By: #### UA #### [place] [address] USAALP [Catalytic activity/Vol]84 U/LSboert49-186Ltu [facility] Physician GroupComment on above:Performed By: #### MG, CMP, CBC #### [place] [address] USAPerformed By: #### UA #### [facility] [address] [place] [address] USAALT [Catalytic activity/Vol]12 U/LNormal7-52The [facility] Physician GroupComment on above:Performed By: #### MG, CMP, CBC #### [facility] [address] [place] [address] USAPerformed By: #### UA #### [facility] [address] [place] [address] USAAnion gap [Moles/Vol]10.1 mmol/LNormal6.0-15.0The [facility] Physician GroupComment on above:Performed By: #### MG, CMP, CBC #### [facility] [address] [place] [address] USAPerformed By: #### UA #### [facility] [address] [place] [address] USAAST [Catalytic activity/Vol]11 U/JJdo84-86Cac [facility] Physician GroupComment on above:Performed By: #### MG, CMP, CBC #### [facility] [address] [place] [address] USAPerformed By: #### UA #### [facility] [address] [place] [address] USABilirubin [Mass/Vol]0.6 mg/dLNormal0.3-1.0The [facility] Physician GroupComment on above:Performed By: #### MG, CMP, CBC #### [place] [address] USAPerformed By: #### UA #### [facility] [address] [place] [address] USACalcium [Mass/Vol]9.2 mg/dLNormal8.6-10.3The [facility] Physician GroupComment on above:Performed By: #### MG, CMP, CBC #### [facility] [address] [place] [address] USAPerformed By: #### UA #### [facility] [address] [place] [address] USAChloride [Moles/Vol]107 mmol/MDlnnut59-313Ujd [facility] Physician GroupComment on above:Performed By: #### MG, CMP, CBC #### [facility] [address] [place] [address] USAPerformed By: #### UA #### [facility] [address] [place] [address] USACO2 [Moles/Vol]25.1 mmol/NQapxhf84.0-31.0The [facility] Physician GroupComment on above:Performed By: #### MG, CMP, CBC #### [facility] [address] [place] [address] USAPerformed By: #### UA #### [place] [address] USACreatinine [Mass/Vol]0.95 mg/dLNormal0.70-1.30The [facility] Physician GroupComment on above:Performed By: #### MG, CMP, CBC #### [place] [address] USAPerformed By: #### UA #### [place] [address] USACreatinine Clr Calc Pnrhmmcn59.56NormHialeah Hospital Physician GroupComment on above:Performed By: #### MG, CMP, CBC #### [place] [address] USAPerformed By: #### UA #### [place] [address] USAGFR/1.73 sq M.predicted MDRD (S/P/Bld) [Vol rate/Area] mL/min/{1.73_m2}NormalThe [facility] Physician GroupComment on above:Performed By: #### MG, CMP, CBC #### [place] [address] USAPerformed By: #### UA #### [place] [address] USAGlobulin (S) [Mass/Vol]2.6 g/dLPhysicians Regional Medical Center - [facility] Boulevard Physician GroupComment on above:Performed By: #### MG, CMP, CBC #### [facility] [address] [place] [address] USAPerformed By: #### UA #### [place] [address] USAGlucose [Mass/Vol]115 mg/hMPouw14-349Ltg [facility] Physician GroupComment on above:Result Comment: Random Glucose Reference Range is dependent on time and content of last meal. Glucose of more than 200 mg/dL in a nonstressed, ambulatory subject supports the diagnosis of Diabetes Mellitus. ADA recommended reference rangePerformed By: #### MG, CMP, CBC #### [place] [address] USAPerformed By: #### UA #### [place] [address] USAPotassium [Moles/Vol]4.2 mmol/LNormal3.5-5.1The [facility] Physician GroupComment on above:Performed By: #### MG, CMP, CBC #### [place] [address] USAPerformed By: #### UA #### [place] [address] USAProtein [Mass/Vol]6.4 g/dLNormal6.4-8.9The [facility] Physician GroupComment on above:Performed By: #### MG, CMP, CBC #### [place] [address] USAPerformed By: #### UA #### [place] [address] USASodium [Moles/Vol]138 mmol/TFrjugm161-818Iht [facility] Physician GroupComment on above:Performed By: #### MG, CMP, CBC #### [place] [address] USAPerformed By: #### UA #### [place] [address] USAUrea nitrogen [Mass/Vol]30 mg/dLHigh7-25The [facility] Physician GroupComment on above:Performed By: #### MG, CMP, CBC #### [facility] [address] [place] [address] USAPerformed By: #### UA #### [place] [address] USAMagnesiumon 14-61-9376Tbpizcwon [Mass/Vol]1.8 mg/dLLow 1.9-2.7The [facility] Physician GroupComment on above:Result Comment: PERFORMED BY: [place] [address] PATHOLOGIST ADVERTISING REPRESENTATIVE HEBER SHANNON M.D.Performed By: #### MG, CMP, CBC #### [facility] [address] [place] [address] USAPerformed By: #### UA #### [facility] [address] [place] [address] USAMagnesium [Mass/volume] in Serum or PlasmaOrdered By: Talib Faustin on 38-36-1594Aksyinuse [Mass/Vol]Magnesium [Mass/volume] in Serum or PlasmaLow1.9-2.7FBarnesville HospitalOffice Visiton 07-19-2024 Follow-up [id number] Jeremie Bennett 1940 M Date Provider Department Center 07/19/2024 BOY SON Family History Problem Relation Age of Onset Coronary artery disease Mother Kidney disease Mother Heart failure Mother Family Status - Relation Status Age at Mother Level of Service:17815 SD POSTOP FOLLOW UP VISIT RELATED TO ORIGINAL [facility] HospitalGLUCOSE POCT GLUCOMETERSon 51-68-7080YTYQXZY7 Glu2: Cleaned MeterNOPrivaliaGlucose [Mass/Vol]107 mg/dLResearch [facility] Comment on above:Random Glucose Reference Range is dependent on time and content of last meal. Glucose of more than 200 mg/dL in a nonstressed, ambulatory subject supports the diagnosis of Diabetes Mellitus. [facility]-Brookside CampusGlucose Glucometer (dC) [Mass/Vol]Ordered By: Matteo Melo on 94-98-4913Cvdpnqr [Mass/Vol]Capillary blood glucose measurement by glucometer (mass/volume)[facility] Medical CenterComment on above:Random Glucose Reference Range is dependent on time and content of last meal. Glucose of more than 200 mg/dL in a nonstressed, ambulatory subject supports the diagnosis of Diabetes Mellitus.Glucose Poct Glucometerson 33-64-0383Jymrtwa8Dns0: Cleaned [facility] Physician GroupComment on above:Result Comment: PERFORMED BY: [facility] [address] [place] [address] PATHOLOGIST ADVERTISING REPRESENTATIVE HEBER SHANNON M.D.Performed By: #### GLULS #### Point of Care testing ,Performed By: #### ESR #### [facility] [address] [place] [address] USAGlucose [Mass/Vol]107 mg/dLNoCone Health Moses Cone Hospital Physician GroupComment on above:Result Comment: Random Glucose Reference Range is dependent on time and content of last meal. Glucose of more than 200 mg/dL in a nonstressed, ambulatory subject supports the diagnosis of Diabetes Mellitus.Performed By: #### GLULS #### Point of Care testing ,Performed By: #### ESR #### [facility] [address] [place] [id number] USANo Panel InformationOrdered By: Matteo Melo on 30-45-2047Ykymecy Glucose CommentGlu2: cleaned [facility] HospitalX-ray reportOrdered By: Mario Urias on 59-31-8228Ysjes [facility] [place] [address] [place] [address] XRay Report Signed Patient: Jeremie Bennett MR#: [id number] : 1940 Acct:[id number] Age/Sex: 83 / M ADM Date: 5 Loc: DC Room: Type: [facility] Attending Dr: Matteo Melo MD Copies to: [...] Urias Jr., D.O.07/17/2024 2:07 PM Dictation Location: [facility]- Transcribed By: [facility] 07/17/24 140 Dictated By: Mario Urias Jr, DO 07/17/24 1407 Signed By: 07/17/24 1407 [facility] CenterXR chest 1V portableon 09-93-2806BW chest 1V [facility] [place] [id number] XRay Report Signed Patient: Jeremie Bennett MR#: [id number] : 1940 Acct:[id number] Age/Sex: 83 / M ADM Date: 07/17/24 Loc: DC Room: Type: [facility] Attending Dr: Matteo Melo MD Copies to: [...] PNEUMOTHORAX. Impression dictated by: Mario Urias Jr., DAidanOAidan07/17/2024 2:07 PM Dictation Location: [facility]-22 Transcribed By: [facility] 07/17/24 1407 Dictated By: Mario Urias Jr, DO 07/17/24 1407 Signed By: 07/17/[address] [place] [address] Physician GroupXR chest 1V [address] [address] XRay Report Signed Patient: Jeremie Bennett MR#: [id number] : 1940 Acct:[id number] Age/Sex: 83 / M ADM Date: 07/17/24 Loc: DC Room: Type: [facility] Attending Dr: Matteo Melo MD Copies to: [...] PNEUMOTHORAX. Impression dictated by: Mario Urias Jr., Wale07/17/2024 2:07 PM Dictation Location: [facility]22 Transcribed By: PERLA 07/17/24 140 Dictated By: Mario Urias Jr, DO 07/17/241406 Signed By: 07/17/24 [address] Physician GroupAlanine aminotransferase [Enzymatic activity/volume] in Serum or PlasmaOrdered By: Talib Faustin on 80-71-0714DXF [Catalytic activity/Vol]Alanine aminotransferase [Enzymatic activity/volume] in Serum or Plasma7-52[facility] CenterAlbumin [Mass/volume] in Serum or Plasma by Bromocresol green (BCG) dye binding metho Ordered By: Talib Faustin on 48-79-0001Jecudfj BCG dye [Mass/Vol]Albumin [Mass/volume] in Serum or Plasma by Bromocresol green (BCG) dye binding metho 3.5-5.7FBarnesville HospitalAlkaline phosphatase [Enzymatic activity/volume] in Serum or PlasmaOrdered By: Talib Faustin on 03-75-7092WOK [Catalytic activity/Vol]Alkaline phosphatase [Enzymatic activity/volume] in Serum or Srevaw41-200MacgpbzdeLakehealth Tripoint Medical CenterAspartate aminotransferase [Enzymatic activity/volume] in Serum or PlasmaOrdered By: Talib Faustin on 33-82-9459POG [Catalytic activity/Vol]Aspartate aminotransferase [Enzymatic activity/volume] in Serum or DsobwaViq23-63WibbbjhsqLakehealth Tripoint Medical Center Basophils Auto (Bld) [#/Vol]Ordered By: Talib Faustin on 02-52-3091Lszfmbhmy (Bld) [#/Vol]Automated basophil count0.0-0.2FBarnesville Hospital Basophils/100 WBC Auto (Bld)Ordered By: Talib Faustin on 07-12-2024 Basophils/100 WBC (Bld)Automated basophil %.[facility] Bilirubin.total [Mass/volume] in Serum or PlasmaOrdered By: Talib Faustin on 71-55-1564Xzckkbvrj [Mass/Vol]Bilirubin.total [Mass/volume] in Serum or Plasma 0.3-1.0[facility] CenterCalcium [Mass/volume] in Serum or Plasma Ordered By: Talib Faustin on 37-08-4552Ncihzml [Mass/Vol]Calcium [Mass/volume] in Serum or Plasma8.6-10.3FBarnesville HospitalCarbon dioxide, total [Moles/volume] in Serum or PlasmaOrdered By: Talib Faustin on 58-81-2584AR9 [Moles/Vol]Carbon dioxide, total [Moles/volume] in Serum or Jyhpof89.0-31.0 [facility] CenterChloride [Moles/volume] in Serum or Plasma Ordered By: Talib Faustin on 70-88-2169Efgvakkg [Moles/Vol]Chloride [Moles/volume] in Serum or Ivfumw70-543SmhnoplopLakehealth Tripoint Medical CenterComplete Blood Count Auto Diffon 98-37-7275Oesroizoo (Bld) [#/Vol]0.0 10*3/uLNormal 0.0-0.2The [facility] Physician GroupComment on above:Result Comment: PERFORMED BY: [place] [address] PATHOLOGIST ADVERTISING REPRESENTATIVE HEBER SHANNON M.D.Performed By: #### CBC, CMP, MG #### [facility] [address] [place] [address] USAPerformed By: #### UA #### [facility] [address] [place] [address] USABasophils/100 WBC (Bld)0.3 %Normal.The [facility] Physician GroupComment on above:Performed By: #### CBC, CMP, MG #### [facility] [address] [place] [address] USAPerformed By: #### UA #### [place] [address] USAEosinophils (Bld) [#/Vol]0.2 10*3/uLNormal0.0-0.45The [facility] Physician GroupComment on above:Performed By: #### CBC, CMP, MG #### [place] [address] USAPerformed By: #### UA #### [place] [address] USAEosinophils/100 WBC (Bld)1.7 %Normal.The [facility] Physician GroupComment on above:Performed By: #### CBC, CMP, MG #### [place] [address] USAPerformed By: #### UA #### [place] [address] USAErythrocyte distribution width (RBC) [Ratio]13.7 %Normal 12.0-14.8The [facility] Physician GroupComment on above:Performed By: #### CBC, CMP, MG #### [place] [address] USAPerformed By: #### UA #### [place] [address] USAHematocrit (Bld) [Volume fraction]38.0 %Low38.8-50.0The [facility] Physician GroupComment on above:Performed By: #### CBC, CMP, MG #### [place] [address] USAPerformed By: #### UA #### [place] [address] USAHemoglobin (Bld) [Mass/Vol]12.6 g/dLLow13.0-17.0The [facility] Physician GroupComment on above:Performed By: #### CBC, CMP, MG #### [place] [address] USAPerformed By: #### UA #### [place] [address] USALymphocytes (Bld) [#/Vol]2.0 10*3/uLNormal1.00-4.8The [facility] Physician GroupComment on above:Performed By: #### CBC, CMP, MG #### [place] [address] USAPerformed By: #### UA #### [place] [address] USALymphocytes/100 WBC (Bld)19.2 %Normal.The [facility] Physician GroupComment on above:Performed By: #### CBC, CMP, MG #### [place] [address] USAPerformed By: #### UA #### [place] [address] USAMCH (RBC) [Entitic mass]30.7 aeBgcgii39.5-35.2The [facility] Physician GroupComment on above:Performed By: #### CBC, CMP, MG #### [place] [address] USAPerformed By: #### UA #### [address]V (RBC) [Entitic vol]92.2 aZWzixrp70.5-101The [facility] Physician GroupComment on above:Performed By: #### CBC, CMP, MG #### [place] [address] USAPerformed By: #### UA #### [place] [address] USAMean Corpuscular HGB Conc33.3 g/zLHchgim86.5-35.6The [facility] Physician GroupComment on above:Performed By: #### CBC, CMP, MG #### [place] [address] USAPerformed By: #### UA #### [place] [address] USAMonocytes (Bld) [#/Vol]0.8 10*3/uLNormal0.0-0.8The [facility] Physician GroupComment on above:Performed By: #### CBC, CMP, MG #### [place] [address] USAPerformed By: #### UA #### [place] [address] USAMonocytes/100 WBC (Bld)7.5 %Normal.The [facility] Physician GroupComment on above:Performed By: #### CBC, CMP, MG #### [facility] [address] [place] [address] USAPerformed By: #### UA #### [place] [address] USANeutrophils (Bld) [#/Vol]7.3 10*3/uLNormal1.8-7.7The [facility] Physician GroupComment on above:Performed By: #### CBC, CMP, MG #### [place] [address] USAPerformed By: #### UA #### [place] [address] USANeutrophils/100 WBC (Bld)71.3 %Normal.The [facility] Physician GroupComment on above:Performed By: #### CBC, CMP, MG #### [facility] [address] [place] [address] USAPerformed By: #### UA #### [place] [address] USANRBC%0.1 /100{WBC}Normal0-0.5The [facility] Comment on above:Performed By: #### CBC, CMP, MG #### [facility] [address] [place] [address] USAPerformed By: #### UA #### [place] [address] USAPlatelet mean volume (Bld) [Entitic vol]9.0 fLNormal 6.6-10.1The [facility] Physician GroupComment on above:Performed By: #### CBC, CMP, MG #### [place] [address] USAPerformed By: #### UA #### [place] [address] USAPlatelets (Bld) [#/Vol]197 10*3/aYZldwez148-712Sdg [facility] Physician GroupComment on above:Performed By: #### CBC, CMP, MG #### [facility] [address] [place] [address] USAPerformed By: #### UA #### [facility] [address] [place] [address] USARBC (Bld) [#/Vol]4.12 10*6/uLNormal3.90-5.60The [facility] Physician GroupComment on above:Performed By: #### CBC, CMP, MG #### [facility] [address] [place] [address] USAPerformed By: #### UA #### [facility] [address] [place] [address] USAWBC (Bld) [#/Vol]10.2 10*3/uLNormal4.1-10.5The [facility] Physician GroupComment on above:Performed By: #### CBC, CMP, MG #### [facility] [address] [place] [address] USAPerformed By: #### UA #### [place] [address] USAComprehensive Metabolic Panelon 21-67-3868Tbphxbz [Mass/Vol]3.9 g/dLNormal3.5-5.7The [facility] Physician GroupComment on above: Performed By: #### CBC, BMP #### [facility] [address] [place] [address] USAPerformed By: #### UA #### [facility] [address] [place] [address] USAAlbumin/Globulin [Mass ratio]1.6 {ratio}NormalThe [facility] Physician GroupComment on above:Performed By: #### CBC, BMP #### [facility] [address] [place] [address] USAPerformed By: #### UA #### [facility] [address] [place] [address] USAALP [Catalytic activity/Vol]86 U/PLqdhxv79-877Pnx [facility] Physician GroupComment on above:Performed By: #### CBC, BMP #### [facility] [address] [place] [address] USAPerformed By: #### UA #### [facility] [address] [place] [address] USAALT [Catalytic activity/Vol]15 U/LNormal7-52The [facility] Physician GroupComment on above:Performed By: #### CBC, BMP #### [facility] [address] [place] [address] USAPerformed By: #### UA #### [facility] [address] [place] [address] USAAnion gap [Moles/Vol]12.2 mmol/LNormal6.0-15.0The [facility] Physician GroupComment on above:Performed By: #### CBC, BMP #### [facility] [address] [place] [address] USAPerformed By: #### UA #### [facility] [address] [place] [address] USAAST [Catalytic activity/Vol]11 U/VKbv66-59Xhm [facility] Physician GroupComment on above:Performed By: #### CBC, BMP #### [facility] [address] [place] [address] USAPerformed By: #### UA #### [facility] [address] [place] [address] USABilirubin [Mass/Vol]0.7 mg/dLNormal0.3-1.0The [facility] Physician GroupComment on above:Performed By: #### CBC, BMP #### [facility] [address] [place] [address] USAPerformed By: #### UA #### [facility] [address] [place] [address] USACalcium [Mass/Vol]9.0 mg/dLNormal8.6-10.3The [facility] Physician GroupComment on above:Performed By: #### CBC, BMP #### [facility] [address] [place] [address] USAPerformed By: #### UA #### [facility] [address] [place] [address] USAChloride [Moles/Vol]102 mmol/FDextir68-940Mxz [facility] Physician GroupComment on above:Performed By: #### CBC, BMP #### [facility] [address] [place] [address] USAPerformed By: #### UA #### [facility] [address] [place] [address] USACO2 [Moles/Vol]27.6 mmol/SZbcrgk85.0-31.0The [facility] Physician GroupComment on above:Performed By: #### CBC, BMP #### [facility] [address] [place] [address] USAPerformed By: #### UA #### [facility] [address] [place] [address] USACreatinine [Mass/Vol]1.01 mg/dLNormal0.70-1.30The [facility] Physician GroupComment on above:Performed By: #### CBC, BMP #### [facility] [address] [place] [address] USAPerformed By: #### UA #### [facility] [address] [place] [address] USACreatinine Clr Calc Fvpsospn71.09NormalThe [facility] Physician GroupComment on above:Performed By: #### CBC, BMP #### [facility] [address] [place] [address] USAPerformed By: #### UA #### [facility] [address] [place] [address] USAGFR/1.73 sq M.predicted MDRD (S/P/Bld) [Vol rate/Area] mL/min/{1.73_m2}NormalThe [facility] Physician GroupComment on above:Performed By: #### CBC, BMP #### [facility] [address] [place] [address] USAPerformed By: #### UA #### [facility] [address] [place] [address] USAGlobulin (S) [Mass/Vol]2.5 g/dLNormalThe [facility] Physician GroupComment on above:Performed By: #### CBC, BMP #### [facility] [address] [place] [address] USAPerformed By: #### UA #### [place] [address] USAGlucose [Mass/Vol]120 mg/zZRmvb36-113Nna [facility] Physician GroupComment on above:Result Comment: Random Glucose Reference Range is dependent on time and content of last meal. Glucose of more than 200 mg/dL in a nonstressed, ambulatory subject supports the diagnosis of Diabetes Mellitus. ADA recommended reference rangePerformed By: #### CBC, BMP #### [place] [address] USAPerformed By: #### UA #### [place] [address] USAPotassium [Moles/Vol]4.8 mmol/LNormal3.5-5.1The [facility] Physician GroupComment on above:Performed By: #### CBC, BMP #### [facility] [address] [place] [address] USAPerformed By: #### UA #### [place] [address] USAProtein [Mass/Vol]6.4 g/dLNormal6.4-8.9The [facility] Physician GroupComment on above:Performed By: #### CBC, BMP #### [facility] [address] [place] [address] USAPerformed By: #### UA #### [place] [address] USASodium [Moles/Vol]137 mmol/HNzrjmf446-687Abg [facility] Physician GroupComment on above:Performed By: #### CBC, BMP #### [place] [address] USAPerformed By: #### UA #### [place] [address] USAUrea nitrogen [Mass/Vol]26 mg/dLHigh7-25The [facility] Physician GroupComment on above:Performed By: #### CBC, BMP #### [facility] [address] [place] [address] USAPerformed By: #### UA #### [facility] [address] [place] [id number] USACreatinine [Mass/volume] in Serum or PlasmaOrdered By: rick Faustin on 25-14-6745Nmlcllrawb [Mass/Vol]Creatinine [Mass/volume] in Serum or Plasma0.70-1.30[facility] Medical CenterEosinophils Auto (Bld) [#/Vol]Ordered By: rick Faustin on 59-40-3079Emoqeaavkrz (Bld) [#/Vol] Automated eosinophil count0.0-0.45[facility] Eosinophils/100 WBC Auto (Bld)Ordered By: rick Faustin on 07-12-2024 Eosinophils/100 WBC (Bld)Automated eosinophil %.[facility] Medical CenterErythrocyte distribution width Auto (RBC) [Ratio]Ordered By: rick Hargrove on 91-21-2619Cwvqaykiioj distribution width (RBC) [Ratio]Erythrocyte distribution width [Ratio] by Automated count12.0-14.8[facility] Medical CenterGlobulin Calc (S) [Mass/Vol]Ordered By: rick Faustin on 07-12-2024 Globulin (S) [Mass/Vol]Serum globulin measurement by calculation (mass/volume) [facility] CenterGlucose [Mass/volume] in Serum or PlasmaOrdered By: rick Faustin on 34-35-3836Hdbefey [Mass/Vol]Glucose [Mass/volume] in Serum or PwmkjsOuhd50-711SbawrjftkLakehealth Tripoint Medical CenterComment on above:ADA recommended reference rangeRandom Glucose Reference Range is dependent on time and content of last meal. Glucose of more than 200 mg/dL in a nonstressed, ambulatory subject supports the diagnosisof Diabetes Mellitus.Hematocrit Auto (Bld) [Volume fraction]Ordered By: rick Faustin on 49-33-7817Kqkwzuduos (Bld) [Volume fraction]Hematocrit [Volume Fraction] of Blood by Automated countLow 38.8-50.0[facility] Medical CenterHemoglobin [Mass/volume] in Blood Ordered By: Talib Faustin on 85-54-6203Nwhyqeukqv (Bld) [Mass/Vol]Hemoglobin [Mass/volume] in MvajxAvr26.0-17.0[facility] CenterLeukocytes [#/volume] corrected for nucleated erythrocytes in Blood by Automated coun Ordered By: Talib Faustin on 98-06-7159GHZ corrected for nucl RBC Auto (Bld) [#/Vol]Leukocytes [#/volume] corrected for nucleated erythrocytes in Blood by Automated coun4.1-10.5FBarnesville HospitalLymphocytes Auto (Bld) [#/Vol]Ordered By: Talib Faustin on 21-31-2722Xyppjdluhdq (Bld) [#/Vol] Lymphocytes [#/volume] in Blood by Automated count1.00-4.8[facility] Medical CenterLymphocytes/100 WBC Auto (Bld)Ordered By: Talib Faustin on 36-27-6312Qvhbvvnkmkn/100 WBC (Bld)Lymphocytes/100 leukocytes in Blood by Automated count.[facility] CenterMCH Auto (RBC) [Entitic mass] Ordered By: Talib Faustin on 48-00-5831RXG (RBC) [Entitic mass]MCH [Entitic mass] by Automated count27.5-35.2FBarnesville HospitalMCHC Auto (RBC) [Mass/Vol]Ordered By: Talib Faustin on 97-78-3773XYZN (RBC) [Mass/Vol] MCHC [Mass/volume] by Automated count32.5-35.6FBarnesville Hospital MCV Auto (RBC) [Entitic vol]Ordered By: Talib Faustin on 32-60-2563ADA (RBC) [Entitic vol]MCV [Entitic volume] by Automated count83.5-101[facility] Medical CenterMagnesiumon 40-01-2498Kbnewezqy [Mass/Vol]1.9 mg/dLNormal1.9-2.7 The [facility] Physician GroupComment on above:Result Comment: PERFORMED BY: [place] [address] PATHOLOGIST ADVERTISING REPRESENTATIVE HEBER SHANNON M.D.Performed By: #### CBC, BMP #### [facility] [address] [place] [address] USAPerformed By: #### UA #### [facility] [address] [place] [address] USAMagnesium [Mass/volume] in Serum or PlasmaOrdered By: Talib Faustin on 29-75-9483Btoiztlux [Mass/Vol]Magnesium [Mass/volume] in Serum or Plasma1.9-2.7FBarnesville HospitalMonocytes Auto (Bld) [#/Vol] Ordered By: Talib Faustin on 37-47-5792Twftcqfnm (Bld) [#/Vol]Automated blood monocyte count0.0-0.8[facility] CenterMonocytes/100 WBC Auto (Bld)Ordered By: Talib Faustin on 52-83-6636Odyzcplup/100 WBC (Bld)Automated monocyte %.[facility] Medical CenterNeutrophils Auto (Bld) [#/Vol] Ordered By: Talib Faustin on 40-01-1647Udjgpeupaoq (Bld) [#/Vol]Neutrophils [#/volume] in Blood by Automated count1.8-7.7FBarnesville Hospital Neutrophils/100 WBC Auto (Bld)Ordered By: Talib Faustin on 07-12-2024 Neutrophils/100 WBC (Bld)Automated neutrophil %.[facility] CenterNo Panel InformationOrdered By: Talib Faustin on 41-25-8908Daslcwide GFR (CKD-EPI)> 60.0 mL/MinLakehealth Tripoint Medical CenterPharmacy Creatinine Clearance (Chem53.09[facility] CenterNucleated erythrocytes [Presence] in Blood by Automated countOrdered By: Talib Faustin on 07-12-2024 Nucleated RBC Auto Ql (Bld)Nucleated erythrocytes [Presence] in Blood by Automated count0-0.5FBarnesville HospitalPlatelet mean volume Auto (Bld) [Entitic vol]Ordered By: Talib Faustin on 70-99-3965Dcnyzjcy mean volume (Bld) [Entitic vol]Platelet mean volume [Entitic volume] in Blood by Automated count6.6-10.1FBarnesville HospitalPlatelets Auto (Bld) [#/Vol] Ordered By: Talib Faustin on 99-55-2523Yavapqizz (Bld) [#/Vol]Platelets [#/volume] in Blood by Automated lpemz556-018HfvsnlfjwLakehealth Tripoint Medical Center Potassium [Moles/volume] in Serum or PlasmaOrdered By: Talib Faustin on 84-58-1415Caqbheojg [Moles/Vol]Potassium [Moles/volume] in Serum or Plasma 3.5-5.1FBarnesville HospitalProtein [Mass/volume] in Serum or Plasma Ordered By: Talib Faustin on 97-35-0271Howsjpl [Mass/Vol]Protein [Mass/volume] in Serum or Plasma6.4-8.9[facility] Medical CenterRBC Auto (Bld) [#/Vol] Ordered By: Talib Faustin on 88-65-3996WDT (Bld) [#/Vol]Erythrocytes [#/volume] in Blood by Automated count3.90-5.60Barnesville Hospitalerum or plasma albumin/globulin mass ratioOrdered By: Talib Faustin on 07-12-2024 Albumin/Globulin [Mass ratio]Serum or plasma albumin/globulin mass ratio Barnesville Hospitalerum or plasma anion gap determinationOrdered By: Talib Faustin on 22-62-3085Hkdqn gap [Moles/Vol]Serum or plasma anion gap determination6.0-15.0Barnesville Hospitalodium [Moles/volume] in Serum or PlasmaOrdered By: Talib Faustin on 89-26-2724Jltqif [Moles/Vol]Sodium [Moles/volume] in Serum or Lpijbi283-008RjzfhljqhLakehealth Tripoint Medical CenterUrea nitrogen [Mass/volume] in Serum or PlasmaOrdered By: Talib Faustin on 65-25-7797Itah nitrogen [Mass/Vol]Urea nitrogen [Mass/volume] in Serum or Plasma High7-25[facility] CenterWBC Auto (Bld) [#/Vol]Ordered By: Talib Faustin on 22-91-2008RNY (Bld) [#/Vol]Leukocytes [#/volume] in Blood by Automated count4.1-10.5FUniversity Hospitals Samaritan Medical Centeron 24-66-4201LFDQ Attestation signed by Stacey Patel MD at [...] me. Patient: Jeremie Bennett Procedure Information Date/Time: 07/10/24 0830 Procedure: PPM generator change - dual Location: [facility] CLINICAL NURSE REVIEWER 1 / [facility] VASCULAR LAB (Cath) Providers: Stacey Patel [...] discussed with attending. Additional Equipment RequestsNormalUniversity of Texas Health [facility] [phone] Attestation signed by Stacey Patel MD at [...] be an additional personal documentation from me. [place] [facility] Consult Note [place] [facility] Reason [...] Tobacco Use: Medium Risk (05/11/2024) Received from [facility] Patient History Smoking Tobacco Use: Former [...] Depression: Not at risk (04/07/2024) Received from [facility] PHQ-2 Patient Health Questionnaire-2 Score: 0 [...] upstroke, no b (more content not included)... NormalUniversity Hospitals Beachwood Medical CenterNURSNOTEon 97-18-5417GHXLPEYOIM educated pt on d/c instructions. This included: [...] wheeled off of unit with all of belongings.NormalUnDelaware County HospitalNURSNOTECHG wipes and betadine nasal swabs completed.Normal [facility] Medical CenterOrders Onlyon 15-59-6090Jnqpmj [id number] Jeremie Bennett 1940 M Date Provider Department Center 07/10/2024 ELIF GONZALEZ [facility] Family History Problem Relation Age of Onset Coronary artery disease Mother Kidney disease Mother Heart failure Mother Family Status - Relation Status Age at MotherNormalUniversCherrington HospitalCBC w/ Auto DiffOrdered By: SYSTEM SYSTEM on 68-91-0929Vrwk form neutrophils/100 WBC (Bld)8.0 %High0.0-6.0 Remisol HemeComment on above:Performed By: #### [id number] #### [facility] [address] [place] [address]Opydzhecu (Bld) [#/Vol]0.0 E9/LNormal0.0-0.2Remisol HemeComment on above:Performed By: #### [id number] #### [facility] [address] [place] [address]59[address]Yeqkgcftdug (Bld) [#/Vol]0.0 E9/LNormal0.0-0.5Remisol Heme Comment on above:Performed By: #### [id number] #### [facility] [address] [place] [address] 59836Byqqdlzlwrt/100 WBC (Bld)0.0 %Normal0.0-8.0Remisol HemeComment on above:Performed By: #### [id number] #### [facility] [address] [place] [address] 38635Sjvdxupfwyt distribution width (RBC) [Ratio]13.9 %Normal 10.9-14.2Remisol HemeComment on above:Performed By: #### [id number] #### [facility] [address] [place] [address] 440[address]Qjfqtewicr (Bld) [Volume fraction]39.7 %Byinur52.7-49.0Remisol HemeComment on above:Performed By: #### [id number] #### [facility] [address] [place] [address] 61459Svfowiplcu (Bld) [Mass/Vol]13.3 g/dLLow13.5-17.5Remisol Heme Comment on above:Performed By: #### [id number] #### [facility] [address] [place] [address] 42474Ynweodnmxpe (Bld) [#/Vol]2.2 E9/LNormal1.0-4.0Remisol Heme Comment on above:Performed By: #### [id number] #### [facility] [address], [place] [address]Yzhrjysikvv/100 WBC (Bld)20.0 %Erbxrr03.0-50.0Remisol Heme Comment on above:Performed By: #### [id number] #### [facility] [address] [place] [address] 51407STE (RBC) [Entitic mass]31.3 dlCjuaze29.0-34.0Remisol Heme Comment on above:Performed By: #### [id number] #### [facility] [address] [place] [address] 13575ISTR (RBC) [Mass/Vol]33.4 g/nIAzedkz57.4-36.0Remisol Heme Comment on above:Performed By: #### [id number] #### [facility] [address] [place] [address] 81595DUX (RBC) [Entitic vol]93.5 oLWcliep07.0-100.0Remisol Heme Comment on above:Performed By: #### [id number] #### [facility] [address] [place] [address] 63378Pwjagzslb (Bld) [#/Vol]0.6 E9/LNormal0.2-1.0Remisol HemeComment on above:Performed By: #### [id number] #### [facility] [address] [place] [address] 45773Nrtwnvjxkr/100 WBC (Bld)3.0 %High0.0-0.0Remisol HemeComment on above:Performed By: #### [id number] #### [facility] [address] [place] [address] 21021Whigvbxqyvm (Bld) [#/Vol]7.4 E9/LInvalid Interpretation Code Remisol HemeComment on above:Performed By: #### [id number] #### [facility] [address] [place] [address] 02444Tihrtich065.0 E9/MQwxmnk732.0-500.0Remisol HemeComment on above:Performed By: #### [id number] #### [facility] [address] [place] [address] 15241Awtigyfz mean volume (Bld) [Entitic vol]9.2 fLNormal6.4-10.8 Remisol HemeComment on above:Performed By: #### [id number] #### [facility] [address] [place] [address] 16167ASZ (Bld) [#/Vol]4.2 E12/LLow4.3-5.9Remisol HemeComment on above:Performed By: #### [id number] #### [facility] [address] [place] [address] 75849Jfxevsgri neutrophils/100 WBC (Bld)62.0 %Eipsov40.0-75.0Remisol HemeComment on above:Performed By: #### [id number] #### [facility] [address] [place] [address] 94883Heyzgwf lymphocytes/100 WBC (Bld)1.0 %High0.0-0.0Remisol Heme Comment on above:Performed By: #### [id number] #### [facility] [address] [place] [address] 96482HYS corrected for nucl RBC Auto (Bld) [#/Vol]10.5 E9/LNormal 4.0-11.0Remisol HemeComment on above:Performed By: #### [id number] #### [facility] [address] [place] [address] 30713MWS w/ Auto Diffon 51-38-1796ZNN size Nom (Bld)NORMALInvalid Interpretation CodeFisher Greater Baltimore Medical CenterComment on above:Performed By: #### [id number] #### [facility] [address] [place] [address] 73969OHBCRYBDCTshaxwt By: SYSTEM SYSTEM on 07-03-2024 Albumin/Globulin [Mass ratio]1.5 {ratio}Normal1.1 - 2.2Remisol ChemALP [Catalytic activity/Vol]70 [iU]/sMtvpdo68 - 98 Int._Unit/LRemisol ChemALT No additional P-5'-P [Catalytic activity/Vol]24 [iU]/dNormal6 - 46 Int._Unit/L Remisol ChemAST [Catalytic activity/Vol]20 [iU]/dNormal5 - 43 Int._Unit/LRemisol ChemUrea nitrogen/Creatinine [Mass ratio]20 mg/zsWpguhq64 - 20Remisol ChemCMP Ordered By: SYSTEM SYSTEM on 58-42-2765Cqqxixj [Mass/Vol]4.0 g/dLNormal3.3-5.0 Remisol ChemComment on above:Performed By: #### [id number] #### [facility] [address], [place] [address]Zehtg gap [Moles/Vol]10 mmol/LNormal6-16Remisol ChemComment on above:Performed By: #### [id number] #### [facility] [address], [place] [address]Muctmfncv [Mass/Vol]0.3 mg/dLNormal0.0-1.1Remisol ChemComment on above:Performed By: #### [id number] #### [facility] [address], [place] [address]Hechbno [Mass/Vol]9.1 mg/dLNormal8.9-11.1Remisol ChemComment on above:Performed By: #### [id number] #### [facility] [address], [place] [address]Lgcoqgce [Moles/Vol]107 mmol/DHhdjeb125-512Gxavwiu ChemComment on above:Performed By: #### [id number] #### [facility] [address], [place] [address]PP9 [Moles/Vol]28 mmol/THqioyq94-04Cnmyfly ChemComment on above:Performed By: #### [id number] #### [facility] [address], [place] [address]Pwbilamjar [Mass/Vol]1.0 mg/dLNormal0.5-1.3Remisol ChemComment on above:Performed By: #### [id number] #### [facility] [address], [place] [address]Pduozlvd (S) [Mass/Vol]2.7 g/dLNormal1.4-4.0Remisol ChemComment on above:Performed By: #### [id number] #### [facility] [address], [place] [address]Wdsgzds [Mass/Vol]138 mg/rDWbxaxe54-415Buuimau ChemComment on above:Performed By: #### [id number] #### [facility] [address], [place] [address]Ohlqzixim [Moles/Vol]4.5 mmol/LNormal3.5-5.3Remisol ChemComment on above:Performed By: #### [id number] #### [facility] [address], [place] [address]Wjpivac [Mass/Vol]6.7 g/dLNormal6.0-7.8Remisol ChemComment on above:Performed By: #### [id number] #### [facility] [address], [place] [address]Dpabus [Moles/Vol]140 mmol/EInftgq824-013Dkdbmms ChemComment on above:Performed By: #### [id number] #### [facility] [address], [place] [address]Zlzo nitrogen [Mass/Vol]20 mg/dLNormal5-21Remisol ChemComment on above:Performed By: #### [id number] #### [facility] [address], [place] [address]KNGzu 73-88-2394Ondxzbz/Globulin (S) [Mass conc ratio]1.5Normal 1.1-2.2Fisher [facility] Baltimore Medical CenterComment on above:Performed By: #### [id number] #### [facility] [address], [place] [address]ZUT [Catalytic activity/Vol]70 Int._Unit/JWfihtl21-09NuocxjMarion HospitalComment on above:Performed By: #### [id number] #### [facility] [address], [place] [address]YFQ No additional P-5'-P [Catalytic activity/Vol]24 Int._Unit/L Normal6-46Marion HospitalComment on above:Performed By: #### [id number] #### [facility] [address] [place] [address] 81735OCQ [Catalytic activity/Vol]20 Int._Unit/LNormal5-43Marion HospitalComment on above:Performed By: #### [id number] #### [facility] [address] [place] [address] 016[address]Pgzz nitrogen/Creatinine [Mass ratio]20 No AqjtuBbivzp09-34 Marion HospitalComment on above:Performed By: #### [id number] #### [facility] [address] [place] [address] 84200HBWNIEFZTOVdaibsk By: SYSTEM SYSTEM on 99-59-5362Aplusudnn/100 WBC (Bld)0.0 %Normal0.0 - 2.0 %Remisol HemeMonocytes/100 WBC (Bld)6.0 %Normal4.0 - 14.0 %Remisol HemeRBC size Nom (Bld)NORMAL *NA* (07/03/24 12:00 PM)Invalid Interpretation CodeRemisol HemeMagnesiumOrdered By: SYSTEM SYSTEM on 84-21-9645Eipcvozzg [Mass/Vol]2.0 mg/dLNormal1.3-2.4Remisol ChemComment on above:Performed By: #### [id number] #### [facility] [address], [place] [address]mUHVGglxuov By: SYSTEM SYSTEM on 51-68-8291fIQO91 mL/min/1.73 b8Tttkvk>=59Remisol ChemComment on above:Performed By: #### [id number] #### [facility] [address] [place] [address] [id number] [id number] Dr Arellano pt was called to schedule cardiac clearance appt. Pt stated he would rather be seen in [place], so I advised pt to call and schedule with them.[facility]No Panel Informationon 06-23-2024 Pure Tone Audiometry Audio indicated a mild to severe sensorineural hearing loss 250-8000 Hz, bilaterally. [facility] HospitalBasic Metabolic Panelon 11-93-5721Mmmly gap [Moles/Vol]8.5 mmol/LNormal6.0-15.0The [facility] Physician GroupComment on above:Performed By: #### CBC, BMP #### [place] [address] USAPerformed By: #### CMP, CBC #### [place] [address] USACalcium [Mass/Vol]9.0 mg/dLNormal8.6-10.3The [facility] Physician GroupComment on above:Result Comment: PERFORMED BY: [place] [address] PATHOLOGIST ADVERTISING REPRESENTATIVE HEBER SHANNON M.D.Performed By: #### CBC, BMP #### [place] [address] USAPerformed By: #### CMP, CBC #### [place] [address] USAChloride [Moles/Vol]110 mmol/JAslz28-100Hpw [facility] Physician GroupComment on above:Performed By: #### CBC, BMP #### [place] [address] USAPerformed By: #### CMP, CBC #### [place] [address] USACO2 [Moles/Vol]24.5 mmol/LQhnrvn93.0-31.0The [facility] Physician GroupComment on above:Performed By: #### CBC, BMP #### [place] [address] USAPerformed By: #### CMP, CBC #### [place] [address] USACreatinine [Mass/Vol]0.97 mg/dLNormal0.70-1.30The [facility] Physician GroupComment on above:Performed By: #### CBC, BMP #### [place] [address] USAPerformed By: #### CMP, CBC #### [place] [address] USAGFR/1.73 sq M.predicted MDRD (S/P/Bld) [Vol rate/Area] mL/min/{1.73_m2}NormalThe [facility] Physician GroupComment on above:Performed By: #### CBC, BMP #### [place] [address] USAPerformed By: #### CMP, CBC #### [place] [address] USAGlucose [Mass/Vol]118 mg/rPUtlf08-650Mdl [facility] Physician GroupComment on above:Result Comment: Random Glucose Reference Range is dependent on time and content of last meal. Glucose of more than 200 mg/dL in a nonstressed, ambulatory subject supports the diagnosis of Diabetes Mellitus. ADA recommended reference rangePerformed By: #### CBC, BMP #### [place] [address] USAPerformed By: #### CMP, CBC #### [place] [address] USAPotassium [Moles/Vol]4.0 mmol/LNormal3.5-5.1The [facility] Physician GroupComment on above:Performed By: #### CBC, BMP #### [place] [address] USAPerformed By: #### CMP, CBC #### [place] [address] USASodium [Moles/Vol]139 mmol/ZGvlrjf480-441Fmx [facility] Physician GroupComment on above:Performed By: #### CBC, BMP #### [facility] [address] [place] [address] USAPerformed By: #### CMP, CBC #### [facility] [address] [place] [address] USAUrea nitrogen [Mass/Vol]19 mg/dLNormal7-25The [facility] Physician GroupComment on above:Performed By: #### CBC, BMP #### [facility] [address] [place] [address] USAPerformed By: #### CMP, CBC #### [facility] [address] [place] [address] USABasic metabolic 1998 panelon 54-30-4709Rowvr gap [Moles/Vol]8.5 mmol/L6.0 - 15.0 meq/LNOMS HealthcareCalcium [Mass/Vol]9 mg/dL8.6 - 10.3 mg/dLNOMS HealthcareChloride [Moles/Vol]110 mmol/LHigh98 - 107 mmol/L NOMS HealthcareCO2 [Moles/Vol]24.5 mmol/L21.0 - 31.0 mmol/LNOMS Healthcare Creatinine (U) [Mass/Vol]0.97 mg/dL0.70 - 1.30 mg/dLNONH HealthcareESTIMATED GFR mL/MinNOMS HealthcareGlucose [Mass/Vol]118 mg/yBFetn46 - 100 mg/dLNONH HealthcareComment on above:Random Glucose Reference Range is dependent on time and content of last meal. Glucose of more than 200 mg/dL in a nonstressed, ambulatory subject supports the diagnosis of Diabetes Mellitus. ADA recommended reference range Interpretation and review of laboratory resultsAbnormalNOMS HealthcarePotassium [Moles/Vol]4 mmol/L3.5 - 5.1 mmol/LNOMS HealthcareSodium [Moles/Vol]139 mmol/L 136 - 145 mmol/LNOMS HealthcareUrea nitrogen [Mass/Vol]19 mg/dL7 - 25 mg/dLNONH HealthcareNONH HealthcareBasophils Auto (Bld) [#/Vol]Ordered By: Matteo Melo on 68-27-5213Nqunggalq (Bld) [#/Vol]Automated basophil count0.0-0.2FBarnesville HospitalBasophils/100 WBC Auto (Bld)Ordered By: Matteo Melo on 91-58-6640Ghasznjks/100 WBC (Bld)Automated basophil %.[facility] W Auto Differential panel (Bld)on 10-85-1764Pgeexfaci (Bld) [#/Vol] 0.1 10*3/uL0.0 - 0.2 10*3/uLNOMS HealthcareBasophils/100 WBC Manual cnt (Syn fld)0.7 %.[facility] HealthcareEosinophils (Bld) [#/Vol]0.4 10*3/uL0.0 - 0.45 10*3/uL NOMS HealthcareEosinophils/100 WBC Manual cnt (Syn fld)5 %.[facility] Erythrocyte distribution width (RBC) [Ratio]13.4 %12.0 - 14.8 %[facility] Hematocrit (Bld) [Volume fraction]40.7 %38.8 - 50.0 %[facility] CampusHemoglobin (Bld) [Mass/Vol]13.7 g/dL13.0 - 17.0 g/dLAMERICAN FORK HOSP[facility] HealthcareLymphocytes (Bld) [#/Vol]2.5 10*3/uL1.00 - 4.8 10*3/uLNOMS HealthcareLymphocytes/100 WBC Manual cnt (Syn fld)30.2 %.[facility] HospitalH (RBC) [Entitic mass]31 pg27.5 - 35.2 pg [facility] HospitalHC (RBC) [Mass/Vol]33.7 g/dL32.5 - 35.6 g/dLRay County Memorial HospitalV (RBC) [Entitic vol]92 fL83.5 - 101 fLAMERICAN FORK HOSPITAL HealthcareMonocytes (Bld) [#/Vol]0.7 10*3/uL0.0 - 0.8 10*3/uLNOMS HealthcareMonocytes+Macrophages/100 WBC Manual cnt (Syn fld)8.8 %.[facility] HealthcareNeutrophils (Bld) [#/Vol]4.6 10*3/uL1.8 - 7.7 10*3/uLNOMS HealthcareNeutrophils/100 WBC Manual cnt (Syn fld)55.3 %.[facility] CampusNRBC0.2 /100{WBC}0 - 0.5 /100{WBC}NOMS HealthcarePlatelet mean volume (Bld) [Entitic vol]8.9 fL6.6 - 10.1 fLNOMS HealthcarePlatelets (Bld) [#/Vol]234 10*3/uL150 - 450 10*3/uLNOMS HealthcareRBC LM.HPF (Urine sed) [#/Area]4.43 10*6/uL3.90 - 5.60 10*6/uLNOMS HealthcareWBC (Bld) [#/Vol]8.4 10*3/uL4.1 - 10.5 10*3/uLNOMS HealthcareWBC LM.HPF (Urine sed) [#/Area]8.4 10*3/uL4.1 - 10.5 10*3/uLNOMS HealthcareNOMS HealthcareCalcium [Mass/volume] in Serum or Plasma Ordered By: Matteo Melo on 47-22-4066Idptjmd [Mass/Vol]Calcium [Mass/volume] in Serum or Plasma8.6-10.3FBarnesville HospitalCarbon dioxide, total [Moles/volume] in Serum or PlasmaOrdered By: Matteo Melo on 70-99-0703TG5 [Moles/Vol]Carbon dioxide, total [Moles/volume] in Serum or Wfgrfd84.0-31.0 [facility] Medical CenterChloride [Moles/volume] in Serum or Plasma Ordered By: Matteo Melo on 68-29-2218Vbqpzbds [Moles/Vol]Chloride [Moles/volume] in Serum or YfxaxuUhcr69-466JtywabxudLakehealth Tripoint Medical Center Complete Blood Count Auto Diffon 90-37-1570Jxrbpgisi (Bld) [#/Vol]0.1 10*3/uL Normal0.0-0.2The [facility] Physician GroupComment on above:Result Comment: PERFORMED BY: [place] [address] PATHOLOGIST ADVERTISING REPRESENTATIVE HEBER SHANNON M.D.Performed By: #### CBC, BMP #### [place] [address] USAPerformed By: #### CMP, CBC #### [place] [address] USABasophils/100 WBC (Bld)0.7 %Normal.The [facility] Physician GroupComment on above:Performed By: #### CBC, BMP #### [place] [address] USAPerformed By: #### CMP, CBC #### [place] [address] USAEosinophils (Bld) [#/Vol]0.4 10*3/uLNormal0.0-0.45The [facility] Physician GroupComment on above:Performed By: #### CBC, BMP #### [place] [address] USAPerformed By: #### CMP, CBC #### [place] [address] USAEosinophils/100 WBC (Bld)5.0 %Normal.The [facility] Physician GroupComment on above:Performed By: #### CBC, BMP #### [place] [address] USAPerformed By: #### CMP, CBC #### [place] [address] USAErythrocyte distribution width (RBC) [Ratio]13.4 %Normal 12.0-14.8The [facility] Physician GroupComment on above:Performed By: #### CBC, BMP #### [place] [address] USAPerformed By: #### CMP, CBC #### [place] [address] USAHematocrit (Bld) [Volume fraction]40.7 %Tmtdvo11.8-50.0The [facility] Physician GroupComment on above:Performed By: #### CBC, BMP #### [place] [address] USAPerformed By: #### CMP, CBC #### [place] [address] USAHemoglobin (Bld) [Mass/Vol]13.7 g/uOIyjbhy81.0-17.0The [facility] Physician GroupComment on above:Performed By: #### CBC, BMP #### [place] [address] USAPerformed By: #### CMP, CBC #### [place] [address] USALymphocytes (Bld) [#/Vol]2.5 10*3/uLNormal1.00-4.8The [facility] Physician GroupComment on above:Performed By: #### CBC, BMP #### [place] [address] USAPerformed By: #### CMP, CBC #### [place] [address] USALymphocytes/100 WBC (Bld)30.2 %Normal.The [facility] Physician GroupComment on above:Performed By: #### CBC, BMP #### [place] [address] USAPerformed By: #### CMP, CBC #### [place] [address] USAMCH (RBC) [Entitic mass]31.0 oxJorpmc11.5-35.2The [facility] Physician GroupComment on above:Performed By: #### CBC, BMP #### [place] [address] USAPerformed By: #### CMP, CBC #### [place] [address] USAMCV (RBC) [Entitic vol]92.0 jOMhlcxf88.5-101The [facility] Physician GroupComment on above:Performed By: #### CBC, BMP #### [place] [address] USAPerformed By: #### CMP, CBC #### [place] [address] USAMean Corpuscular HGB Conc33.7 g/wQPftdvi90.5-35.6The [facility] Physician GroupComment on above:Performed By: #### CBC, BMP #### [facility] [address] [place] [address] USAPerformed By: #### CMP, CBC #### [facility] [address] [place] [address] USAMonocytes (Bld) [#/Vol]0.7 10*3/uLNormal0.0-0.8The [facility] Physician GroupComment on above:Performed By: #### CBC, BMP #### [facility] [address] [place] [address] USAPerformed By: #### CMP, CBC #### [place] [address] USAMonocytes/100 WBC (Bld)8.8 %Normal.The [facility] Physician GroupComment on above:Performed By: #### CBC, BMP #### [facility] [address] [place] [address] USAPerformed By: #### CMP, CBC #### [facility] [address] [place] [address] USANeutrophils (Bld) [#/Vol]4.6 10*3/uLNormal1.8-7.7The [facility] Physician GroupComment on above:Performed By: #### CBC, BMP #### [place] [address] USAPerformed By: #### CMP, CBC #### [place] [address] USANeutrophils/100 WBC (Bld)55.3 %Normal.The [facility] Physician GroupComment on above:Performed By: #### CBC, BMP #### [facility] [address] [place] [address] USAPerformed By: #### CMP, CBC #### [facility] [address] [place] [address] USANRBC%0.2 /100{WBC}Normal0-0.5The [facility] Comment on above:Performed By: #### CBC, BMP #### [facility] [address] [place] [address] USAPerformed By: #### CMP, CBC #### [facility] [address] [place] [address] USAPlatelet mean volume (Bld) [Entitic vol]8.9 fLNormal 6.6-10.1The [facility] Physician GroupComment on above:Performed By: #### CBC, BMP #### [facility] [address] [place] [address] USAPerformed By: #### CMP, CBC #### [facility] [address] [place] [address] USAPlatelets (Bld) [#/Vol]234 10*3/gABtbcoo803-865Ewx [facility] Physician GroupComment on above:Performed By: #### CBC, BMP #### [facility] [address] [place] [address] USAPerformed By: #### CMP, CBC #### [place] [address] USARBC (Bld) [#/Vol]4.43 10*6/uLNormal3.90-5.60The [facility] Physician GroupComment on above:Performed By: #### CBC, BMP #### [place] [address] USAPerformed By: #### CMP, CBC #### [place] [address] USAWBC (Bld) [#/Vol]8.4 10*3/uLNormal4.1-10.5The [facility] Physician GroupComment on above:Performed By: #### CBC, BMP #### [facility] [address] [place] [address] USAPerformed By: #### CMP, CBC #### [facility] [address] [place] [address] USACreatinine [Mass/volume] in Serum or PlasmaOrdered By: Matteo Melo on 82-65-3840Mdyxvdkpqn [Mass/Vol]Creatinine [Mass/volume] in Serum or Plasma0.70-1.30[facility] Medical CenterECG 12 lead ECGon 99-38-5625ETI 12 lead [facility] Main [address] [address] Electrocardiograph Report Signed Patient: Jeremie Bennett MR#: [id number] 812 : 1940 Acct:[id number] Age/Sex: 83 / M ADM Date: 06/22/24 [...] Signed By Amilcar Santiago MD 0 06/23/[address] [place] [address] Physician GroupECG 12 lead [facility] Main [address] [address] Electrocardiograph Report Signed Patient: Jeremie Bennett MR#: [id number] 669 : 1940 Acct:[id number] Age/Sex: 83 / M ADM Date: 06/22/24 [...] Signed By Amilcar Santiago MD 0 06/23/[address] [place] [address] Physician GroupEosinophils Auto (Bld) [#/Vol] Ordered By: Matteo Melo on 59-20-8989Usimmncsuqw (Bld) [#/Vol]Automated eosinophil count0.0-0.45[facility] Medical CenterEosinophils/100 WBC Auto (Bld)Ordered By: Matteo Melo on 76-75-6337Wnhabcwjbmf/100 WBC (Bld) Automated eosinophil %.[facility] Medical CenterErythrocyte distribution width Auto (RBC) [Ratio]Ordered By: Matteo Melo on 52-11-8305Neczuetxvbl distribution width (RBC) [Ratio]Erythrocyte distribution width [Ratio] by Automated count12.0-14.8[facility] Medical CenterGlucose [Mass/volume] in Serum or PlasmaOrdered By: Matteo Melo on 26-35-6181Ssdyjfn [Mass/Vol] Glucose [Mass/volume] in Serum or TzhbqxFoie55-403CzqjjjprrLakehealth Tripoint Medical CenterComment on above:ADA recommended reference rangeRandom Glucose Reference Range is dependent on time and content of last meal. Glucose of more than 200 mg/dL in a nonstressed, ambulatory subject supports the diagnosisof Diabetes Mellitus.Hematocrit Auto (Bld) [Volume fraction]Ordered By: Matteo Melo on 71-14-9281Aomnqxhuyu (Bld) [Volume fraction]Hematocrit [Volume Fraction] of Blood by Automated count38.8-50.0[facility] Medical CenterHemoglobin [Mass/volume] in BloodOrdered By: Matteo Melo on 31-99-6478Zftisbanew (Bld) [Mass/Vol]Hemoglobin [Mass/volume] in Blood13.0-17.0[facility] Medical CenterLeukocytes [#/volume] corrected for nucleated erythrocytes in Blood by Automated counOrdered By: Matteo Melo on 29-12-5924UWB corrected for nucl RBC Auto (Bld) [#/Vol]Leukocytes [#/volume] corrected for nucleated erythrocytes in Blood by Automated coun4.1-10.5FBarnesville HospitalLymphocytes Auto (Bld) [#/Vol]Ordered By: Matteo Melo on 34-34-5218Fgwkzbtrhxz (Bld) [#/Vol] Lymphocytes [#/volume] in Blood by Automated count1.00-4.8[facility] Medical CenterLymphocytes/100 WBC Auto (Bld)Ordered By: Matteo Melo on 26-15-9021Dwyuyuxmnhv/100 WBC (Bld)Lymphocytes/100 leukocytes in Blood by Automated count.[facility] Medical CenterMCH Auto (RBC) [Entitic mass] Ordered By: Matteo Melo on 46-49-1594XET (RBC) [Entitic mass]MCH [Entitic mass] by Automated count27.5-35.2FBarnesville HospitalMCHC Auto (RBC) [Mass/Vol]Ordered By: Matteo Melo on 54-40-1711XUCX (RBC) [Mass/Vol]MCHC [Mass/volume] by Automated count32.5-35.6FBarnesville HospitalMCV Auto (RBC) [Entitic vol]Ordered By: Matteo Melo on 73-13-7354DYJ (RBC) [Entitic vol]MCV [Entitic volume] by Automated count83.5-101L[facility] Medical CenterMonocytes Auto (Bld) [#/Vol]Ordered By: Matteo Melo on 79-74-9939Nmdtgbehl (Bld) [#/Vol]Automated blood monocyte count0.0-0.8[facility] Medical CenterMonocytes/100 WBC Auto (Bld)Ordered By: Matteo Melo on 46-21-9705Wjuuuekrh/100 WBC (Bld)Automated monocyte %.[facility] Medical CenterNeutrophils Auto (Bld) [#/Vol]Ordered By: Matteo Melo on 02-06-2025 Neutrophils (Bld) [#/Vol]Neutrophils [#/volume] in Blood by Automated count 1.8-7.7FBarnesville HospitalNeutrophils/100 WBC Auto (Bld)Ordered By: Matteo Melo on 76-19-1937Nyueavbasjx/100 WBC (Bld)Automated neutrophil %. [facility] CenterNo Panel InformationOrdered By: Matteo Melo on 74-64-0024Kgutwlzli GFR (CKD-EPI)> 60.0 mL/MinLakehealth Tripoint Medical CenterPharmacy Creatinine Clearance (ChemN/[facility] Nucleated erythrocytes [Presence] in Blood by Automated countOrdered By: Matteo Melo on 83-33-9942Bpjpkluxv RBC Auto Ql (Bld)Nucleated erythrocytes [Presence] in Blood by Automated count0-0.5FBarnesville HospitalPlatelet mean volume Auto (Bld) [Entitic vol]Ordered By: Matteo Melo on 97-47-2925Isfoypel mean volume (Bld) [Entitic vol]Platelet mean volume [Entitic volume] in Blood by Automated count6.6-10.1FBarnesville HospitalPlatelets Auto (Bld) [#/Vol]Ordered By: Matteo Melo on 46-22-9986Gymzeohdb (Bld) [#/Vol]Platelets [#/volume] in Blood by Automated fefyn985-605GmscdwbfqLakehealth Tripoint Medical Center Potassium [Moles/volume] in Serum or PlasmaOrdered By: Matteo Melo on 93-46-1748Loscgallj [Moles/Vol]Potassium [Moles/volume] in Serum or Plasma 3.5-5.1FBarnesville HospitalRBC Auto (Bld) [#/Vol]Ordered By: Matteo Melo on 56-89-0425ESR (Bld) [#/Vol]Erythrocytes [#/volume] in Blood by Automated count3.90-5.60Barnesville Hospitalerum or plasma anion gap determinationOrdered By: Matteo Melo on 53-42-4245Yghdc gap [Moles/Vol] Serum or plasma anion gap determination6.0-15.0[facility] Sodium [Moles/volume] in Serum or PlasmaOrdered By: Matteo Melo on 06-22-2024 Sodium [Moles/Vol]Sodium [Moles/volume] in Serum or Idnnmv754-536IdkhleptrLakehealth Tripoint Medical CenterUrea nitrogen [Mass/volume] in Serum or PlasmaOrdered By: Matteo Melo on 86-88-5737Qvpk nitrogen [Mass/Vol]Urea nitrogen [Mass/volume] in Serum or Plasma7-25[facility] Medical CenterWBC Auto (Bld) [#/Vol] Ordered By: Matteo Melo on 88-13-4886EVG (Bld) [#/Vol]Leukocytes [#/volume] in Blood by Automated count4.1-10.5FChillicothe VA Medical Centerurgical pathology studyon 16-55-3443Kitbypry pathology studyPathology report.total SEE COMMENT Surgical Pathology Case: [id number] Authorizing Provider: Mary Schneider MD Collected: 06/05/2024 1609 Ordering Location: [facility] Received: 06/05/[address] [place] [address] Pathologist: Alessandro Azrate DDS Specimen: LYMPH NODE BIOPSY Path report.final diagnosis SEE COMMENT Lymph node, core biopsy: - Metastatic non-keratinizing squamous cell carcinoma, see note. 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 P16 by immunohistochemistry: Equivocal. 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 Reference Range (p16): Negative: <50% strong nuclear [...] is submitted in toto in one cassette. [facility] AP ASR DISCLAIMER One or more of the reagents used to perform assays on this specimen MAY have contained components considered to be analyte specific reagents (ASR's). ASR's have not been cleared or approved by the U.S. Food and Drug Administration. These assays were developed and their performance characteristics determined by the Department of Pathology at [facility]. The FDA does not require this test to go through premarket FDA review. This test is used for clinical purposes. It should not be regarded as investigational or for research. This laboratory is certified under the Clinical Laboratory Improvement Amendments (CLIA) as qualified to perform high complexity clinical laboratory testing. The assays were performed with appropriate positive and negative controls which stained appropriately.Toledo HospitalUS GUIDED BIOPSY LYMPH NODE SUPERFICIALon 88-54-6519WR GUIDED BIOPSY LYMPH NODE SUPERFICIALInterpreted By: Gaby Perez and Guirguis James STUDY: US GUIDED BIOPSY LYMPH NODE SUPERFICIAL; 06/05/2024 1:53 pm INDICATION: Signs/Symptoms:left neck enlarged lymph node seen on PET. COMPARISON: PET-CT dated 03/27/2024 ACCESSION NUMBER(S): [id number] ORDERING CLINICIAN: MARY SCHNEIDER TECHNIQUE: INTERVENTIONALIST(S): MD [...] intravenous fentanyl 50mcg and versed 0.5mg from 2144-0438. The physician was assisted by an independent [...] findings as stated. Performed and dictated at [facility]. MACRO: None. Signed by: Gaby Perez 06/05/2024 9:02 PM Dictation workstation: [id number] HospitalUS guidance for percutaneous biopsy of Lymph [...] findings as stated. Performed and dictated at [facility]. MACRO: None. Signed by: Gaby Perez 06/05/2024 9:02 PM Dictation workstation: [id number] MMODALInterpreted By: Gaby Perez and Guirguis James STUDY: US GUIDED BIOPSY LYMPH NODE SUPERFICIAL; 06/05/2024 1:53 pm INDICATION: Signs/Symptoms:left neck enlarged lymph node seen on PET. COMPARISON: PET-CT dated 03/27/2024 ACCESSION NUMBER(S): [id number] ORDERING CLINICIAN: MARY SCHNEIDER TECHNIQUE: INTERVENTIONALIST(S): MD [...] intravenous fentanyl 50mcg and versed 0.5mg from 1656-0394. The physician was assisted by an independent [...] immediate complications. Specimen(s) sent to pathology. [facility] Gaby Hawkins MD - 06/05/2024 Interpreted By: Gaby Perez and Guirguis James STUDY: US GUIDED BIOPSY LYMPH NODE SUPERFICIAL; 06/05/2024 1:53 pm INDICATION: Signs/Symptoms:left neck enlarged lymph node seen on PET. COMPARISON: PET-CT dated 03/27/2024 ACCESSION NUMBER(S): [id number] ORDERING CLINICIAN: MARY SCHNEIDER TECHNIQUE: INTERVENTIONALIST(S): MD [...] intravenous fentanyl 50mcg and versed 0.5mg from 7472-1504. The physician was assisted by an independent [...] findings as stated. Performed and dictated at [facility]. MACRO: None. Signed by: Gaby Perez 06/05/2024 9:02 PM Dictation workstation: [id number] [facility] Work Phone: Radiology Study observation (narrative)[facility] Work Phone: US guidance for percutaneous biopsy of Lymph node Ordered By: Gaby Perez on 03-33-0634MevonyemcvMercy Health Urbana Hospital Work Phone: nm TRANSFER OF OUTSIDE FILMSon 64-37-5781EW TRANSFER OF OUTSIDE FILMSOutside images for comparison or treatment purposes, not interpreted by Radiologists.NormalOur Lady of Mercy Hospitaltudy Interpretation of outside studyon 48-71-0192Xrsiokf images for comparison or treatment purposes, not interpreted by Radiologists.IMAGINGBlood type and Indirect antibody screen panel (Bld)on 57-52-9986OIP group Nom (Bld)AUnMercy Health Urbana HospitalBlood group antibody screen QlNegativeUnMercy Health Urbana HospitalD Ag Ql (Bld)Positive [facility] HospitalUnMercy Health Urbana HospitalABO group Nom (Bld)ANoCleveland ClinicComment on above:Order Comment: Patient admitted for surgery associated with significant blood loss OR per blood bank request.Performed By: #### 97204-7 #### TING Knox (40473) [facility] ([facility]) [address] [place], [place] [address]Etfbd group antibody screen QlNegativeNoCleveland ClinicComment on above:Order Comment: Patient admitted for surgery associated with significant blood loss OR per blood bank request.Performed By: #### 46018-1 #### TING Knox (12979) [facility] ([facility]) [address] [place], [place] [address]B Ag Ql (Bld)PositiveToledo HospitalComment on above:Order Comment: Patient admitted for surgery associated with significant blood loss OR per blood bank request.Performed By: #### 78629-1 #### TING Knox (21252) [facility] ([facility]) [address] [place], [place] [address]Hvttmby Test strip manual (Bld) [Mass/Vol]on 05-11-2024 Glucose [Mass/Vol]128 mg/iMOvfc96 - 99 mg/dLUnMercy Health Urbana Hospital Interpretation and review of laboratory resultsAbProMedica Memorial HospitalGlucose [Mass/Vol]128 mg/qIDlnb81-14 [facility] HospitalComment on above:Performed By: #### 2341-6 #### TING PARKSJOHNNY Knox (76570) [facility] ([facility]) [address] [place], [place] [address]Pahifgs [Mass/Vol]120 mg/tKGkio34 - 99 mg/dLFlower HospitalComment on above:RN NOTIFIEDInterpretation and review of laboratory resultsAbAvita Health System Bucyrus HospitalUnMercy Health Urbana HospitalGlucose [Mass/Vol]120 mg/bXUlti40-94CrspftqrsoSouthern Ohio Medical CenterComment on above:Result Comment: RN NOTIFIEDPerformed By: #### 2341-6 #### TING Knox (01630) [facility] ([facility]) [address] [place], [place] [address]Thozxucp pathology studyon 44-94-2629Ldargptf pathology study Pathology report.total SEE COMMENT Surgical Pathology Case: [id number] Authorizing Provider: Mary Schneider MD Collected: 05/11/2024801 Ordering Location: [facility] Received: 05/11/2024 [address] [place] Pathologist: Asuncion Quintanilla MD PhD Intraop: [...] invasion. Intraoperative Consult Pathologist(s): Carmel Patel MD industry consultant: Dr. Alessandro Arzate. LAB AP ASR DISCLAIMER One or more of the reagents used to perform assays on this specimen MAY have contained components considered to be analyte specific reagents (ASR's). ASR's have not been cleared or approved by the U.S. Food and Drug Administration. These assays were developed and their performance characteristics determined by the Department of Pathology at [facility]. The FDA does not require this test to go through premarket FDA review. This test is used for clinical purposes. It should not be regarded as investigational or for research. This laboratory is certified under the Clinical Laboratory Improvement Amendments (CLIA) as qualified to perform high complexity clinical laboratory testing. 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]VERAB/VERIFY ABORHon 84-25-2448DRA group Nom (Bld)ANoCleveland ClinicComment on above:Performed By: #### VERAB #### TING Knox (40062) [facility] ([facility]) [address] [place], [place] [address]G Ag Ql (Bld)PositiveNoCleveland ClinicComment on above:Performed By: #### VERAB #### TING Knox (82646) [facility] ([facility]) [address] [place] [address]Ycmuch ABO/Rh Group Test (VERAB)on 61-46-1332JQX group Nom (Bld)[facility] Ag Ql (Bld)PositiveUnProMedica Memorial HospitalOffice Visiton 75-07-8778Whfdsx-up [id number] Jeremie Bennett 1940 M Date Provider Department Center 04/25/2024 STACEY ERNANDEZ [facility] Family History Problem Relation Age of Onset Coronary artery disease Mother Kidney disease Mother Heart failure Mother Family Status - Relation Status Age at Mother Level of Service:72392 SD OFFICE/OUTPATIENT NEW MODERATE MDM 45 MINUTESNoal [facility] CenterAmbulatory Visit Summaryon 04-17-2024 Ambulatory Visit SummaryAmbulatory Visit Summary JEREMIE BENNETT :1940 Visit Date:04/17/2024 Ambulatory Visit Instructions Your Diagnosis Type 2 diabetes mellitus with hypercholesterolemia BMI 30.0-30.9,adult Exogenous obesity Former smoker Chronic GERD 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..NormalCincinnati [facility] w/ Auto Diffon 04-17-2024 Basophils/100 WBC (Bld)0.8 %Normal0.0-2.0Marion HospitalComment on above:Performed By: #### [id number] #### [facility] [address] [place] [address]Jygofjgmp/Leukocytes Auto (Bld) [Pure # fraction]0.1 E9/LNormal 0.0-0.2FKeenan Private HospitalComment on above:Performed By: #### [id number] #### [facility] [address] [place] [address]Oxvtolnopvh (Bld) [#/Vol]0.4 E9/LNormal0.0-0.5FKeenan Private HospitalComment on above:Performed By: #### [id number] #### [facility] [address] [place] [address] 205[address]Zbgcnjqhnjn/100 WBC (Bld)4.6 %Normal0.0-8.0Marion HospitalComment on above:Performed By: #### [id number] #### [facility] [address] [place] [address] 559[address]Onqxwhqgpgt distribution width (RBC) [Ratio]14.0 %Normal 10.9-14.2FKeenan Private HospitalComment on above:Performed By: #### [id number] #### [facility] [address] [place] [address] 64[address]Upaspmfoud (Bld) [Volume fraction]43.7 %Tnegsr16.7-49.0Marion HospitalComment on above:Performed By: #### [id number] #### [facility] [address], [place] [address]Kisdkhnbqk (Bld) [Mass/Vol]14.5 g/nIUqokdf03.5-17.5FKeenan Private HospitalComment on above:Performed By: #### [id number] #### [facility] [address] [place] [address]32[address]Sdmkjemagou (Bld) [#/Vol]2.0 E9/LNormal1.0-4.0Marion HospitalComment on above:Performed By: #### [id number] #### [facility] [address] [place] [address]Wpytstkqcev/100 WBC (Bld)22.4 %Wrdlaf61.0-50.0Marion HospitalComment on above:Performed By: #### [id number] #### [facility] [address] [place] [address] 207[address]OWZ (RBC) [Entitic mass]31.2 vpPthkdm46.0-34.0Marion HospitalComment on above:Performed By: #### [id number] #### [facility] [address] [place] [address] 04289KZZA (RBC) [Mass/Vol]33.2 g/aMEmlvqm16.4-36.0Marion HospitalComment on above:Performed By: #### [id number] #### [facility] [address] [place] [address] 70239FTF (RBC) [Entitic vol]94.2 nZOijimx01.0-100.0Marion HospitalComment on above:Performed By: #### [id number] #### [facility] [address] [place] [address] 88[address]Gehxxbufl (Bld) [#/Vol]0.7 E9/LNormal0.2-1.0Marion HospitalComment on above:Performed By: #### [id number] #### [facility] [address] [place] [address] 80[address]Zlupyulpcrc (Bld) [#/Vol]5.7 E9/LNormal2.0-7.5FKeenan Private HospitalComment on above:Performed By: #### [id number] #### [facility] [address] [place] [address] 612[address]Gprrcgvpzkv/100 WBC (Bld)64.7 %Mblpmx58.0-75.0Marion HospitalComment on above:Performed By: #### [id number] #### [facility] [address] [place] [address] 705[address]Vhraxtch mean volume (Bld) [Entitic vol]9.2 fLNormal6.4-10.8 Marion HospitalComment on above:Performed By: #### [id number] #### [facility] [address] [place] [address] 17[address]Vxuzoperf (Bld) [#/Vol]243.0 E9/GBqmspm371.0-500.0Marion HospitalComment on above:Performed By: #### [id number] #### [facility] [address] [place] [address] 51376NXE (Bld) [#/Vol]4.6 E12/LNormal4.3-5.9Marion HospitalComment on above:Performed By: #### [id number] #### [facility] [address] [place] [address] 625[address]KHZ corrected for nucl RBC Auto (Bld) [#/Vol]8.9 E9/LNormal 4.0-11.0Marion HospitalComment on above:Performed By: #### [id number] #### [facility] [address] [place] [address] 04[address]OCDVREGGQQiwpdka By: SYSTEM SYSTEM on 42-34-7984Visidhz [Mass/Vol]4.3 g/dLNormal3.3 - 5.0 gm/dLRemisol ChemAlbumin DL <= 20 mg/L (U) [Mass/Vol]0.7 mg/dLNormal0.0 - 1.9 mg/dLRemisol ChemAlbumin/Globulin [Mass ratio]1.7 {ratio}Normal1.1 - 2.2Remisol ChemALP [Catalytic activity/Vol]82 [iU]/lIifgvf88 - 98 Int._Unit/LRemisol ChemALT No additional P-5'-P [Catalytic activity/Vol]17 [iU]/dNormal6 - 46 Int._Unit/LRemisol ChemAnion gap [Moles/Vol] 10 mmol/LNormal6 - 16 mEq/LRemisol ChemAST [Catalytic activity/Vol]18 [iU]/d Normal5 - 43 Int._Unit/LRemisol ChemBilirubin [Mass/Vol]0.6 mg/dLNormal0.0 - 1.1 mg/dLRemisol ChemCalcium [Mass/Vol]9.7 mg/dLNormal8.9 - 11.1 mg/dLRemisol Chem Chloride [Moles/Vol]108 mmol/IEgtask712 - 111 mmol/LRemisol ChemCO2 [Moles/Vol] 27 mmol/ZSszrjr15 - 31 mmol/LRemisol ChemCreatinine [Mass/Vol]1.0 mg/dLNormal0.5 - 1.3 mg/dLRemisol XikosFVX57 mL/min/1.73 i2Zjcldi>=59mL/min/1.73 b8Jiayzix ChemGlobulin (S) [Mass/Vol]2.5 g/dLNormal1.4 - 4.0 gm/dLRemisol ChemGlucose [Mass/Vol]145 mg/mRPyucux21 - 199 mg/dLRemisol ChemPotassium [Moles/Vol]4.2 mmol/LNormal3.5 - 5.3 mmol/LRemisol ChemProtein [Mass/Vol]6.8 g/dLNormal6.0 - 7.8 gm/dLRemisol ChemSodium [Moles/Vol]141 mmol/KPfbwtz392 - 145 mmol/LRemisol ChemUrea nitrogen [Mass/Vol]22 mg/dLHigh5 - 21 mg/dLRemisol ChemUrea nitrogen/Creatinine [Mass ratio]22 mg/yuTrqx39 - 20Remisol ChemCHEMISTRYOrdered By: Isabel Cuellar on 13-67-8299VlA8l (Bld) [Mass fraction]6.5 %High<=5.9%[facility] ChemAutoSSCMPon 63-48-2153Zimiwky [Mass/Vol]4.3 g/dLNormal3.3-5.0Marion HospitalComment on above:Performed By: #### [id number] #### [facility] [address], [place] [address]Znshoia/Globulin (S) [Mass conc ratio]1.0Zcwuta8.1-2.2FKeenan Private HospitalComment on above:Performed By: #### [id number] #### [facility] [address], [place] [address]EKL [Catalytic activity/Vol]82 Int._Unit/NDeahww87-39DjkuprMarion HospitalComment on above:Performed By: #### [id number] #### [facility] [address], [place] [address]ILF No additional P-5'-P [Catalytic activity/Vol]17 Int._Unit/L Normal6-46Marion HospitalComment on above:Performed By: #### [id number] #### [facility] [address], [place] [address]Eoxqt gap [Moles/Vol]10 mmol/LNormal6-16Marion HospitalComment on above:Performed By: #### [id number] #### [facility] [address], [place] [address]ZOG [Catalytic activity/Vol]18 Int._Unit/LNormal5-43Marion HospitalComment on above:Performed By: #### [id number] #### [facility] [address], [place] [address]Wniojehyi [Mass/Vol]0.6 mg/dLNormal0.0-1.1FKeenan Private HospitalComment on above:Performed By: #### [id number] #### [facility] [address], [place] [address]Xtorsgs [Mass/Vol]9.7 mg/dLNormal8.9-11.1FKeenan Private HospitalComment on above:Performed By: #### [id number] #### [facility] [address], [place] [address]Iawpdsmt [Moles/Vol]108 mmol/GTyjkal124-030NqardgMarion HospitalComment on above:Performed By: #### [id number] #### [facility] [address], [place] [address]UH5 [Moles/Vol]27 mmol/HBucvbo76-52YabukzMarion Hospital Comment on above:Performed By: #### [id number] #### [facility] [address], [place] [address]Ossfwelppb [Mass/Vol]1.0 mg/dLNormal0.5-1.3FKeenan Private HospitalComment on above:Performed By: #### [id number] #### [facility] [address], [place] [address]Jumrzodk (S) [Mass/Vol]2.5 g/dLNormal1.4-4.0Marion HospitalComment on above:Performed By: #### [id number] #### [facility] [address], [place] [address]Uvfjbab [Mass/Vol]145 mg/jHEinndm20-255LekwgiMarion HospitalComment on above:Performed By: #### [id number] #### [facility] [address], [place] [address]Zthnefzbe [Moles/Vol]4.2 mmol/LNormal3.5-5.3FKeenan Private HospitalComment on above:Performed By: #### 3363064 #### [facility] [address], [place] [address]Rksyrag [Mass/Vol]6.8 g/dLNormal6.0-7.8Marion HospitalComment on above:Performed By: #### [id number] #### [facility] [address], [place] [address]Hfdmom [Moles/Vol]141 mmol/KDetsts206-016AqimolMarion HospitalComment on above:Performed By: #### [id number] #### [facility] [address], [place] [address]Gfwe nitrogen [Mass/Vol]22 mg/dLHigh5-21Marion HospitalComment on above:Performed By: #### [id number] #### [facility] [address], [place] [address]Lfri nitrogen/Creatinine [Mass ratio]22 No SdheoDthm46-85EohgzzMarion HospitalComment on above:Performed By: #### [id number] #### [facility] [address], [place] [address]Ofuunm Medicine Office/Clinic Noteon 44-19-6540Odkuww Medicine Office/Clinic NoteFaaddison gilbert hospital Medicine Office/Clinic Note HPI Staff Jeremie [...] a referral to Dr. Marlene Schneider in [place] for further evaluation. The patient has a [...] or previously received 4274F Lab Specimen Collect 73239 Microalbumin Level Urine Most recent diastolic blood [...] or previously received 4274F Lab Specimen Collect 06014 Microalbumin Level Urine Most recent diastolic blood [...] or previously received 4274F Lab Specimen Collect 83347 Microalbumin Level Urine Most recent diastolic blood pressure <80 mm Hg 3078F Patient screen for fall risk: no falls in last year or 1 fall with no injury in last year 1101F Systolic BP <130 mm Hg (Most Recent) 3074F 4. Former smoker (Z87.891: Personal history of nicotine dependence) Please continue not to smoke. Ordered: influe (more content not included)...[facility] HospitalComment on above:Result Comment: Electronically Signed By: Hermes CASON, eDmetrius Branham.br\Date and Time Signed: 04/17/24 12:20 ESTHEMATOLOGYOrdered By: SYSTEM SYSTEM on 36-36-2930Vdjfwirzx/100 WBC (Bld)0.8 %Normal0.0 - 2.0 %Remisol Heme Basophils/Leukocytes Auto (Bld) [Pure # fraction]0.1 E9/LNormal0.0 - 0.2 E9/L Remisol HemeEosinophils (Bld) [#/Vol]0.4 E9/LNormal0.0 - 0.5 E9/LRemisol Heme Eosinophils/100 WBC (Bld)4.6 %Normal0.0 - 8.0 %Remisol HemeErythrocyte distribution width (RBC) [Ratio]14.0 %Mpncaw19.9 - 14.2 %Remisol HemeHematocrit (Bld) [Volume fraction]43.7 %Bmanmb46.7 - 49.0 %Remisol HemeHemoglobin (Bld) [Mass/Vol]14.5 g/tHFqteyn87.5 - 17.5 gm/dLRemisol HemeLymphocytes (Bld) [#/Vol] 2.0 E9/LNormal1.0 - 4.0 E9/LRemisol HemeLymphocytes/100 WBC (Bld)22.4 %Normal 14.0 - 50.0 %Remisol HemeMCH (RBC) [Entitic mass]31.2 mnBereog75.0 - 34.0 pg Remisol HemeMCHC (RBC) [Mass/Vol]33.2 g/mIVisaru23.4 - 36.0 gm/dLRemisol HemeMCV (RBC) [Entitic vol]94.2 iPEmawwx59.0 - 100.0 fLRemisol HemeMonocytes (Bld) [#/Vol]0.7 E9/LNormal0.2 - 1.0 E9/LRemisol HemeMonocytes/100 WBC (Bld)7.5 % Normal4.0 - 14.0 %Remisol HemeNeutrophils (Bld) [#/Vol]5.7 E9/LNormal2.0 - 7.5 E9/LRemisol HemeNeutrophils/100 WBC (Bld)64.7 %Rabpen36.0 - 75.0 %Remisol Heme Platelet mean volume (Bld) [Entitic vol]9.2 fLNormal6.4 - 10.8 fLRemisol Heme Platelets (Bld) [#/Vol]243.0 E9/QPdeynt840.0 - 500.0 E9/LRemisol HemeRBC (Bld) [#/Vol]4.6 E12/LNormal4.3 - 5.9 E12/LRemisol HemeWBC corrected for nucl RBC Auto (Bld) [#/Vol]8.9 E9/LNormal4.0 - 11.0 E9/LRemisol MxwqYlvY9sdh 18-40-3252ChI7r (Bld) [Mass fraction]6.5 %High<=5.9Marion HospitalComment on above: Performed By: #### [id number] #### [facility] [address], [place] [address]K Microalbon 37-66-1142Ymsiduj DL <= 20 mg/L (U) [Mass/Vol]0.7 mg/dLNormal0.0-1.9Marion HospitalComment on above:Performed By: #### [id number] #### [facility] [address], [place] [address]fCGDgr 20-25-9288pXDA86 mL/min/1.73 h8Aespqk>=59Marion HospitalComment on above:Performed By: #### [id number] #### [facility] [address], [place] [address]Ctqap metabolic 2000 panelon 92-07-0200Jxgzq gap [Moles/Vol]15 mmol/JVdnxji43-68PybyngxqpiBlanchard Valley Health System [facility] HospitalComment on above: Performed By: #### 45728-0 #### TING Knox (11431) [facility] ([facility]) [address] [place], [place] [address]Ijmfdwx [Mass/Vol]9.9 mg/dLNormal8.6-10.6[facility] HospitalComment on above:Performed By: #### 50826-3 #### TING Knox (53476) [facility] ([facility]) [address] [place], [place] [address]Jtskllrd [Moles/Vol]107 mmol/IHmsceo78-577AzajqijkoqBlanchard Valley Health System [facility] HospitalComment on above:Performed By: #### 47077-6 #### TING Knox (33437) [facility] ([facility]) [address] [place], [place] [address]HA6 [Moles/Vol]25 mmol/DEvrwra55-68AxjxjnjqwmSouthern Ohio Medical CenterComment on above:Performed By: #### 29376-0 #### TING Knox (56971) [facility] ([facility]) [address] [place], [place] [address]Yqkorvwffr [Mass/Vol]0.96 mg/dLNormal0.50-1.30UnSouthern Ohio Medical CenterComment on above:Performed By: #### 27511-2 #### TING Knox (75525) [facility] ([facility]) [address] [place] [address]Anhemzqeyp filtration rate/1.73 sq M.iptfkpttn80 mL/min/1.73m*2Normal>60UnSouthern Ohio Medical CenterComment on above:Result Comment: Calculations of estimated GFR are performed using the 2020 CKD-EPI Study Refit equation without the race variable for the IDMS-Traceable creatinine methods. https://jasn.asnjournals.org/content/early//ASN.5790942816Dbjrplcky By: #### 12259-0 #### TING Knox (32564) [facility] ([facility]) [address] [place], [place] [address]Aqegdde [Mass/Vol]109 mg/ySRguc16-94XhzrvoovklSouthern Ohio Medical CenterComment on above:Performed By: #### 86152-6 #### TING Knox (73093) [facility] ([facility]) [address] [place], [place] [address]Kvoeghqga [Moles/Vol]4.5 mmol/LNormal3.5-5.3UnSouthern Ohio Medical CenterComment on above:Performed By: #### 77500-0 #### TING Knox (70128) [facility] ([facility]) [address] [place], [place] [address]Mmjnre [Moles/Vol]142 mmol/LSraxqu061-818OkekbgtcsgSouthern Ohio Medical CenterComment on above:Performed By: #### 70739-3 #### TING Knox (41915) [facility] ([facility]) [address] [place] [address]Bjxh nitrogen [Mass/Vol]18 mg/dLNormal6-23UnSouthern Ohio Medical CenterComment on above:Performed By: #### 19125-8 #### TING Knox (07392) [facility] ([facility]) [address] [place] [address]WDX panel Auto (Bld)on 52-15-1798Osuqyknohvl distribution width (RBC) [Ratio]13.3 %Rxgjln36.5-14.5[facility] HospitalComment on above:Performed By: #### 66486-9 #### TING Knox (83333) [facility] ([facility]) [address] [place] [address]Zzelngeojj (Bld) [Volume fraction]45.5 %Vbhghg48.0-52.0 [facility] HospitalComment on above:Performed By: #### 84071-6 #### TING Knox (34503) [facility] [facility] ([facility]) [address] [place] [address] 92372Watjtevijj (Bld) [Mass/Vol]14.5 g/iNMcsudl52.5-17.5[facility] HospitalComment on above:Performed By: #### 56676-0 #### TING Knox ([id number]) [facility] ([facility]) [address] [place] [address] 42290IIR (RBC) [Entitic mass]30.1 cqRqmxyz88.0-34.0[facility] HospitalComment on above:Performed By: #### 97824-0 #### TING Knox ([id number]) [facility] ([facility]) [address] [place] [address] 00235ETSG (RBC) [Mass/Vol]31.9 g/dLLow32.0-36.0UnSouthern [place] Medical CenterComment on above:Performed By: #### 98056-3 #### TING Knox (77416) [facility] ([facility]) [address] [place] [address] 33841SVB (RBC) [Entitic vol]94 uQCwjgos81-857HgrgmethgdSouthern [place] Medical CenterComment on above:Performed By: #### 04884-6 #### TING Knox (22192) [facility] ([facility]) [address] [place] [address] 73190Clbbcitif RBC/100 WBC (Bld) [Ratio]0.0 /100 WBCsNormal0.0-0.0 [facility] Bl[facility] Valley HospitalComment on above:Performed By: #### 87761-5 #### TING Knox (32948) [facility] ([facility]) [address] [place] [address] 23287Gqqmltmku (Bld) [#/Vol]254 x10*3/aBKowcry363-332KlzuoasmggSouthern [place] Medical CenterComment on above:Performed By: #### 12187-3 #### TING Knox (24824) [facility] ([facility]) [address] [place] [address] 20145QEV (Bld) [#/Vol]4.82 x10*6/uLNormal4.50-5.90UnSouthern [place] Medical CenterComment on above:Performed By: #### 38770-2 #### TING Knox (25713) [facility] ([facility]) [address] [place] [address] 43549KZA (Bld) [#/Vol]8.5 x10*3/uLNormal4.4-11.3[facility] Bl[facility] Valley HospitalComment on above:Performed By: #### 95514-3 #### TING Knox (67153) [facility] ([facility]) [address] [place] [address] 19850Crsbljwc pathology studyon 86-24-6976Izvpdfiz pathology study Pathology report.total SEE COMMENT Surgical Pathology Case: [id number] Authorizing Provider: Mary Schneider MD Collected: 04/07/2024 1137 Ordering Location: [facility] Received: 04/07/2024 1145 Pathologist: Alessandro [...] PAS is negative for heart fungal organisms. industry consultant: Dr. Jose Leary. Laboratory comment By [...] is submitted in toto in one cassette. [facility] LimaGLUCOSE, BLOOD (POC)on 55-89-7116Vvwrujk [Mass/Vol]113 mg/lJXojwemfo96 - 99 mg/dLWvumedicine Barnesville Hospital Comment on above:Location:[facility], [address] [place] [address] , [place], [place], [address] The Accu-Chek Inform II glucose meter has [...] situations. Interpretation and review of laboratory resultsAbnormalCleveland J.[facility] PET/CT SKULL-THIGH INITon 57-51-7371UQ PET/CT SKULL-THIGH INIT* * *Final Report* * [...] * Uptake Time: 61 minutes * Radiopharmaceutical: O92-Rwtdpeqemchblqxban (FDG) COMPARISON: No previous FDG PET/CT available [...] the care of you (more content not included)...NormalMercy Health Clermont HospitalAmbulatory Visit Summaryon 31-61-0770Jtsnhwqrjj Visit SummaryAmbulatory Visit Summary JEREMIE BENNETT :1940 [...] Tab) fluticasone nasal (fluticasone Nasal 0.05 mg/inh [place]) furosemide (furosemide 20 mg Tab) irbesartan (irbesartan [...] EST With: Hermes CASON, Demetrius Rosa Where: [address] [address]- Wednesday 2:30 PM EDT With: Where: [address] [address]- Medications What How Much When [...] fluticasone nasal (fluticasone Nasal 0.05 mg/ inh [place]) See instructions USE 1 SPRAY IN BOTH [...] Non-Formulary Medication (Misc Medication (more content not included)...[facility] Office/Clinic Note on 79-76-5833Uvytkijlgjhehqal Office/Clinic NoteGastroenterology Office/Clinic Note Chief Complaint 5 [...] Salomón Villarreal Lymph node bx 02/29/24 @ [facility]: A, right cervical lymph node, [...] spondylosis Chronic GERD 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 [...] Angioplasty, Cardiac pacemaker proced (more content not included)...[facility] Comment on above:Result Comment: Electronically Signed By: Beatriz CASON, Inez Funes\.br\Date and Time Signed: 03/23/24 14:49 ESTLon 05-15-1470TXoybdwvt: [id number] Received: 02/29/24 Status: LISA Kirby Num: [id number] Spec Type: Surgical Subm Dr: LUC HAM [...] Account Attending Physician Jeremie Bennett 83/M LABELL [id number] LUC HAM MD SPEC NUM: [id number] RECD: 02/29/24 STATUS: LISA KIRBY NUM: [id number] DONTRELL: 02/29/24- DR: LUC HAM MD ENTERED: 02/29/[address]: Myra Templeton SPEC TYPE: Surgical DEPT: MANNY MONTEZ ENTERED BY: [id number] RECV BY: [id number] ORDERED: S 100, Mucicarmine, HE/6, Gross/Micro L4/2, [...] poorly- differentiated squamous cell carcinoma Note: Specimen: [id number] Received: 02/29/24 Status: LISA Kirby Num: [id number] Spec Type: Surgical Subm Dr: LUC HAM MD Tissues: A Lymph Node - Biopsy (Needle or Incisional) (RT CERVICAL LYMPH NODE) B Lymph Node - Biopsy (Needle or Incisional) (RT CERVICAL LYMPH NODE-SALIN) Procedures: S 100, Mucicarmine, HE/6, Gross/Micro L4/2, CK5 6, CK20, CK 7, NAPSIN A, CINtec p16, TTF1, NKX3.1, MOC31, GATA3, p40, DIFF QWIK Patient: Jeremie Bennett [id number] (Continued) Specimen: [id number] Received: 02/29/24 (Continued) Pathological Diagnosis (Continued) Signed (signature on file) Tae Sanchez MD 03/04/24 1033 Specimen: [id number] Received: 02/29/24 Status: LISA Kirby Num: [id number] Spec Type: Surgical Subm Dr: LUC HAM MD Tissues: A Lymph Node - Biopsy (Needle or Incisional) (RT CERVICAL LYMPH NODE) B Lymph Node - Biopsy (Needle or Incisional) (RT CERVICAL LYMPH NODE-SALIN) Procedures: S 100, Mucicarmine, HE/6, Gross/Micro L4/2, CK5 6, CK20, CK 7, NAPSIN A, CINtec p16, TTF1, NKX3.1, MOC31, GATA3, p40, DIFF QWIK Patient: Jeremie Bennett [id number] (Continued) Specimen: [id number] Received: 02/29/24 (Continued) Pathological Diagnosis (Continued) -The [...] for flow c (more content not included)...NormalThe [facility] Physician GroupCT SOFT TISSUE NECK W IV CONTRASTon [id number] SOFT TISSUE NECK W IV CONTRAST TITLE [...] above:Order Comment: CT S/T Neck W at [facility]. Please call patient to schedule.Itz [id number] Telephone ([facility]) JEREMIE BENNETT ([id number]) 1940 M Date Time Provider Department 02/02/[address] [facility] During your visit today, we [...] and it was completed in 12/2023 at [facility]. Our office will request results for Dr. Pringle's review. Follow up will be determined upon Dr. Pringle's review of results. Carlitos Beckman 02/04/2024 9:19 AM Signed Surveillance imaging completed at OSH for IPMN surveillance. Carlitos Beckman 02/07/2024 9:31 AM Signed IPMN surveillance. Review OSH images and advise please [facility] MRI Cholanglogram Pancreatography 11/09/2023 Allergies As of Date: 02/02/2024 Noted Allergy Reaction ADHESIVE TAPE-SILICONES 01/19/2019 2 - Rash NIACIN 01/19/2019 9 - Itching 16 - Unknown Date Reviewed: 04/01/2023 Reviewed by: Debby Holland MA - Fully Assessed Reason for Visit: MRI Appointment [6039] Director Speech Language - Other [3602] Primary Visit Diagnosis:IPMN (intraductal papillary mucinous neoplasm) [D49.0] Order(s):CONSULT FOR RAD 2ND READ [0973974] Order #: [id number]: 1 Prescriptions as of 02/18/2024 - iv [...] fluticasone (FLONASE) 50 mcg/actuation nasal spray 1 [place]. - omeprazole (PRILOSEC) 40 mg capsule Take [...] (None) Encounter Status:Closed by CARLITOS BECKMAN on 02/18/24F[facility] HospitalAmbulatory Visit Summaryon [id number] Visit SummaryAmbulatory Visit Summary JEREMIE BENNETT :1940 [...] Tab) fluticasone nasal (fluticasone Nasal 0.05 mg/inh [place]) furosemide (furosemide 20 mg Tab) irbesartan (irbesartan [...] Beatriz CASON, Inez Funes Where: [facility] [address] [place] [address] [place] [address]- Wednesday 10:00 AM EST With: Hermes CASON, Demetrius Rosa Where: [facility] [address] [address]- Wednesday 2:30 PM EDT With: Where: [facility] [place] [address] [id number]- Medications What How Much When Why Instructions [...] fluticasone nasal (fluticasone Nasal 0.05 mg/ inh [place]) See instructions USE 1 SPRAY IN BOTH [...] DME Prescription) See instructions (more content not included)...[facility] Medicine Office/Clinic Noteon 61-60-8974Rgvsgf Medicine Office/Clinic NoteFaaddison gilbert hospital Medicine Office/Clinic Note HPI Staff Jeremie [...] BID, # 20 cap(s), Refills(s) 0, Pharmacy: [id number], 160, cm, 01/10/24 9:43:00 EDT, Height/Length Dosing, 77.8, kg, 01/10/24 9:43:00 EDT, Weight Dosing Follow-up No qualifying data available Problem List/Past Medical History Ongoing BMI 29.0-29.9,adult Cervical lymphadenopathy Cervical spondylosis Chronic GERD 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 [...] PRN, 1 refills fluticasone Nasal 0.05 mg/inh [place], See Instructions furosemide 20 mg Tab, 20 [...] No. Household alcohol concerns: No., 11/08/2023 [facility] (more content not included)...[facility] HospitalComment on above:Result Comment: Electronically Signed By: [...] mg Tab) fluticasone nasal (Flonase 0.05 mg/inh [place]) furosemide (furosemide 20 mg Tab) irbesartan (irbesartan [...] AM EDT With: Demetrius Cooper MD Where: [facility] [address] [address]- 2023 2:45 PM EST With: Inez Henderson MD Where: [facility] [address] [place] [address]- Wednesday 10:00 AM EST With: Arnie Cooper MDuel E. Where: [address] [id number]- Wednesday 2:30 PM EDT With: Where: [address] [address]- Medications What How Much When Why Instructions [...] Unchanged fluticasone nasal (Flonase 0.05 mg/ inh [place]) 1 Sprays Nasal Inhalation 2 times a day each nostril Unchanged furosemide (furosemide 20 mg Tab) 1 Tablets By Mouth Every day Unchanged irbesartan (irbesartan 300 mg Tab) 1 Tablets By Mouth Every day Unchanged isosorbide mononitrate 30 Milligram By Mouth Once a day (in the morning) Unchanged latanoprost ophthalmic (latanoprost Opth 0.005% [place]) 10 mL, 0 Refill(s) Unchanged loperamide (loperamide [...] day Unchanged zonisamide (z (more content not included)...[facility] Medicine Office/Clinic Noteon 63-50-3896Xknqns Medicine Office/Clinic NoteFaaddison gilbert hospital Medicine Office/Clinic Note HPI Staff Jeremie [...] BID, # 20 cap(s), Refills(s) 0, Pharmacy: [id number], 160, cm, 01/10/24 9:43:00 EDT, Height/Length Dosing, 77.8, kg, 01/10/24 9:43:00 EDT, Weight Dosing Follow-up No qualifying data available Problem List/Past Medical History Ongoing BMI 29.0-29.9,adult Cervical lymphadenopathy Cervical spondylosis Chronic GERD 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 [...] q4hr, PRN, 1 refills Flonase 0.05 mg/inh [place], 1 spray(s), Nasal, BID furosemide 20 mg Tab, 20 mg= 1 tab(s), Oral, Daily irbesartan 300 mg Tab, 300 mg= 1 tab(s), Oral, Daily isosorbide mononitrate, 30 mg, Oral, qAM latanoprost Opth 0.005% Janee loperamide 2 mg (more content not included)...[facility] Comment on above:Result Comment: Electronically Signed By: Hermes CASON, Demetrius Branham.marco a\Date and Time Signed: 01/10/24 10:38 Fhaad [id number] ([id number]) JEREMIE BENNETT ([id number]) 1940 M Date Time Provider Department 04/05/23 VAISHALI PRINGLE [id number] During your visit today, we recorded the following information about you: Lolly Dumont 04/05/2023 9:55 AM Signed Received records from [facility]. Reports for imaging listed below scanned. Images pushed through 09/27/2019 US Right Upper Quad 03/31/2020 CT ABD/PEL US Right Upper Quad [facility] MRI Abdomen 02/22/2023 US Soft Tissue Head [...] mucinous neoplasm) [D49.0] Order(s):GI TUMOR BOARD - GLEN BURNIE [APPT42] Order #: [id number]: 1 FUTURE Prescriptions as of 04/06/2023 - isosorbide mononitrate ER (IMDUR) 30 mg 24 hr tablet Take 30 mg by mouth. - clopidogrel (PLAVIX) 75 mg tablet - furosemide (LASIX) 20 mg tablet Take 20 mg by mouth. - fluticasone (FLONASE) 50 mcg/actuation nasal spray 1 [place]. - omeprazole (PRILOSEC) 40 mg capsule Take [...] Status:Closed by LAMONTE COUCH on 04/06/23[facility] [id number] Visit ([id number]) JEREMIE BENNETT ([id number]) 1940 M Date Time Provider Department 04/01/23 1:00 PM VAISHALI PRINGLE [id number] During your visit today, we recorded the [...] way of the shared medical record or [employer]. Jeremie Bennett is a 82 year [...] his GI re (more content not included)...Normal [facility] HospitalCHEMISTRYOrdered By: SYSTEM SYSTEM on 03-10-2023 Albumin [Mass/Vol]4.0 g/dLNormal3.3 - 5.0 gm/dLDEACONESS HOSPITAL – [place] RemisolAlbumin/Globulin [Mass ratio]1.2 {ratio}Normal1.1 - 2.2[facility] RemisolALP [Catalytic activity/Vol]65 [iU]/lUdkzjr31 - 98 Int._Unit/LFTMC RemisolALT No additional P-5'-P [Catalytic activity/Vol]17 [iU]/dNormal6 - 46 Int._Unit/LFTMC RemisolAnion gap [Moles/Vol] 10 mmol/LNormal6 - 16 mEq/LFT[facility] RemisolAST [Catalytic activity/Vol]16 [iU]/d Normal5 - 43 Int._Unit/LFT[facility] RemisolBilirubin [Mass/Vol]0.4 mg/dLNormal0.0 - 1.1 mg/dLFTMC RemisolCalcium [Mass/Vol]9.2 mg/dLNormal8.9 - 11.1 mg/dLFTMC Remisol Chloride [Moles/Vol]108 mmol/YHanxwb909 - 111 mmol/LFTMC RemisolCO2 [Moles/Vol] 25 mmol/RSxwala08 - 31 mmol/LFT[facility] RemisolCreatinine [Mass/Vol]1.1 mg/dLNormal0.5 - 1.3 mg/dLFTMC RemisolGFR/1.73 sq M.predicted among non-blacks MDRD (S/P/Bld) [Vol rate/Area]67 mL/min/1.73 o7Yfpttq>=59mL/min/1.73 m2[facility] Chem SComment on above:Interpretive Data: Chronic kidney disease could be indicated at eGFR's of less than 60 mL/min/1.73m2. Kidney failure is indicated at less than 15 mL/min/1.73m2.Globulin (S) [Mass/Vol]3.3 g/dLNormal1.4 - 4.0 gm/dLFT[facility] Remisol Glucose [Mass/Vol]136 mg/uNIygvtg32 - 199 mg/dLFTMC RemisolComment on above: Interpretive Data: If this glucose result represents a fasting glucose, interpretation should referto the following reference range: 55-99 mg/dL Potassium [Moles/Vol]3.9 mmol/LNormal3.5 - 5.3 mmol/LFTMC RemisolProtein [Mass/Vol]7.3 g/dLNormal6.0 - 7.8 gm/dLFTMC RemisolSodium [Moles/Vol]139 mmol/L Vmoomg109 - 145 mmol/LFTMC RemisolUrea nitrogen [Mass/Vol]20 mg/dLNormal5 - 21 mg/dLFT[facility] RemisolUrea nitrogen/Creatinine [Mass ratio]18 mg/jwVmjzvz26 - 20[facility] RemisolHEMATOLOGYOrdered By: SYSTEM SYSTEM on 04-90-5467Hqutodmvn/100 WBC (Bld) 0.4 %Normal0.0 - 2.0 %[facility] HemeAutoSSBasophils/Leukocytes Auto (Bld) [Pure # fraction]0.0 E9/LNormal0.0 - 0.2 E9/LFTMC HemeAutoSSEosinophils/100 WBC (Bld)2.4 %Normal0.0 - 8.0 %[facility] HemeAutoSSEosinophils/Leukocytes Auto (Bld) [Pure # fraction]0.2 E9/LNormal0.0 - 0.5 E9/LFTMC HemeAutoSSLymphocytes/100 WBC (Bld) 21.9 %Njshym14.0 - 50.0 %[facility] HemeAutoSSLymphocytes/Leukocytes Auto (Bld) [Pure # fraction]1.8 E9/LNormal1.0 - 4.0 E9/LFTMC HemeAutoSSMonocytes/100 WBC (Bld)6.9 %Normal4.0 - 14.0 %[facility] HemeAutoSSMonocytes/Leukocytes Auto (Bld) [Pure # fraction]0.6 E9/LNormal0.2 - 1.0 E9/LFTMC HemeAutoSSNeutrophils/100 WBC (Bld) 68.4 %Bqlnos70.0 - 75.0 %[facility] HemeAutoSSNeutrophils/Leukocytes Auto (Bld) [Pure # fraction]5.8 E9/LNormal2.0 - 7.5 E9/LFTMC HemeAutoSSHEMATOLOGYOrdered By: Ethel Peters on 76-26-4524Wpovgbydtng distribution width (RBC) [Ratio]13.9 % Xvjyir81.9 - 14.2 %[facility] HemeAutoSSHematocrit (Bld) [Volume fraction]43.6 %Normal 37.7 - 49.0 %[facility] HemeAutoSSHemoglobin (Bld) [Mass/Vol]14.5 g/dMHuybkc31.5 - 17.5 gm/dLFTMC HemeAutoSSMCH (RBC) [Entitic mass]30.4 qaUqcnpq18.0 - 34.0 pgFTMC HemeAutoSSMCHC (RBC) [Mass/Vol]33.2 g/rOVafryo32.4 - 36.0 gm/dLFTMC HemeAutoSS MCV (RBC) [Entitic vol]91.7 pFOuzbqn16.0 - 100.0 fLDEACONESS HOSPITAL – [place] HemeAutoSSPlatelet mean volume (Bld) [Entitic vol]8.6 fLNormal6.4 - 10.8 fLDEACONESS HOSPITAL – [place] HemeAutoSSPlatelets (Bld) [#/Vol]236.0 E9/UVnmwcb656.0 - 500.0 E9/LFC HemeAutoSSRBC (Bld) [#/Vol] 4.8 E12/LNormal4.3 - 5.9 E12/LFSAINT FRANC[facility] HemeAutoSSWBC corrected for nucl RBC Auto (Bld) [#/Vol]8.4 E9/LNormal4.0 - 11.0 E9/LFSAINT FRANCIS [facility] [place] HemeAutoSSMICRO OTHER TESTS Ordered By: Elba Felipe on 72-75-0296Ktjvl WBC LactoferrinNegative 3 (03/10/23 12:45 PM)NormalNegativeDEACONESS HOSPITAL – [place] Man SeroComment on above:Interpretive Data: The semi-quantitative detection of elevated levels of fecal lactoferrin is a marker for fecal leukocytes and an indication of intestinal inflammation. CHEMISTRYOrdered By: Yash Shah on 14-02-0726Csugvij DL <= 20 mg/L (U) [Mass/Vol]microgram/mLNormal0.0 - 19.0 mcg/mLDEACONESS HOSPITAL – [place] RemisolAlbumin Elph (U) [Mass fraction]mg/dLInvalid Interpretation CodeDEACONESS HOSPITAL – [place] RemisolCreatinine (U) [Mass/Vol] 15.9 mg/dLInvalid Interpretation CodeDEACONESS HOSPITAL – [place] Chem MONSALVE Prot/Creat RatioUTCInvalid Interpretation Code0.00 - 200.00DE[facility] [place] [facility] Chem SComment on above:Result Comment: Unable to calculate due to Protein being less than analyzer reportable range.CBC AUTO DIFFon 30-79-8863WZEX #0.1 103/ulNormal0.0-0.1The [facility]iance HospitalComment on above:Performed By: #### CBC #### [facility] [address] [address] [address] Ramsey SanchezBasophils/100 WBC (Bld)0.7 %Normal0.2-2.0The [facility] Comment on above:Performed By: #### CBC #### [facility] [address] [place] [address] Dr. Ramsey Ortiz #0.2 103/ulNormal0.0-0.7The [facility]iance HospitalComment on above: Performed By: #### CBC #### [facility] [address] [place] [address] Dr. Ramsey Canoosinophils/100 WBC (Bld)1.5 %Normal0.9-7.0The [facility] Comment on above:Performed By: #### CBC #### [facility] [address] [place] [address] Dr. Ramsey Canorythrocyte distribution width (RBC) [Ratio]13.6 %Cvwsjf34.0-15.0 The [facility] HospitalComment on above:Performed By: #### CBC #### [facility] [address] [place] [address] Dr. Ramsey SanchezHematocrit (Bld) [Volume fraction]43.5 %Qinvfg80.0-54.0The [facility] HospitalComment on above:Performed By: #### CBC #### [facility] [address] [place] [address] Dr. Ramsey SanchezHemoglobin (Bld) [Mass/Vol]13.9 g/dLCritically low14.0-18.0The [facility] HospitalComment on above:Performed By: #### CBC #### [facility] [address] [place] [address] Dr. Ramsey Nowak #0.29 10e3/ulCritically high0.00-0.03The [facility] Comment on above:Performed By: #### CBC #### [facility] [address] [place] [address] Dr. Ramsey Nowak %2.9 %Critically high0.0-0.5The [facility] HospitalComment on above:Performed By: #### CBC #### [facility] [address] [place] [address] Dr. Ramsey Damon #2.1 103/ulNormal1.2-3.8The [place] HospitalComment on above:Performed By: #### CBC #### [facility] [address] [address] [address] Ramsey Olivamphocytes/100 WBC (Bld)20.8 %Rfqryv50.5-60.0The [facility] HospitalComment on above:Performed By: #### CBC #### [facility] [address] [place] [address] Dr. Ramsey Mckinley DIFF REQNONormalThe [place] HospitalComment on above: Performed By: #### CBC #### [facility] [address] [place] [address] Dr. Ramsey Enriquez (RBC) [Entitic mass]29.6 xfFvbway13.9-34.0The [facility] HospitalComment on above:Performed By: #### CBC #### [facility] [address] [place] [address] Dr. Ramsey Enriquez (RBC) [Mass/Vol]32.0 g/lDEodorr13.9-35.2The [facility] HospitalComment on above:Performed By: #### CBC #### [facility] [address] [place] [address] Dr. Ramsey Enriquez (RBC) [Entitic vol]92.6 pIBoehzv86.0-94.0The [facility] HospitalComment on above:Performed By: #### CBC #### [facility] [address] [place] [address] Dr. Ramsey Ignacio #0.8 103/ulNormal0.3-0.8The [facility] HospitalComment on above:Performed By: #### CBC #### [facility] [address] [place] [address] Dr. Ramsey Ervinocytes/100 WBC (Bld)8.3 %Normal1.7-12.0The [facility] Comment on above:Performed By: #### CBC #### [facility] [address] [place] [address] Dr. Ramsey Cooney #6.5 103/ulNormal1.4-6.5The [facility] HospitalComment on above:Performed By: #### CBC #### [facility] [address] [place] [address] Dr. Ramsey Torresutrophils/100 WBC (Bld)65.8 %Kxdqym43.0-75.0The [facility] HospitalComment on above:Performed By: #### CBC #### [facility] [address] [place] [address] Dr. Ramsey Garciaslet mean volume (Bld) [Entitic vol]11.1 fLNormal9.5-13.5The [facility] HospitalComment on above:Performed By: #### CBC #### [facility] [address] [place] [address] Dr. Ramsey SanchezPLT198 103/qpOnvbwp577-891Nav [facility] HospitalComment on above: Performed By: #### CBC #### [facility] [address] [place] [address] Dr. Ramsey SanchezRBC4.70 106/ulNormal4.70-6.10The [facility] HospitalComment on above:Performed By: #### CBC #### [facility] [address] [place] [address] Dr. Ramsey SanchezWBC9.9 103/ulNormal4.0-11.0The [facility] HospitalComsurgeons choice medical center on above: Performed By: #### CBC #### [facility] [address] [place] [address] Dr. Ramsey Delgadillo URINE PROFILEon 56-04-9252Filgyjdov Ql (U)NegativeNormal NEGATIVEThe [facility] Defiance HospitalComment on above:Performed By: #### ERUR #### [facility] [address] [place] [address] Dr. Ramsey Baca (U)CLEARNormalCLEARThe [facility] HospitalComment on above: Performed By: #### ERUR #### [facility] [address] [place] [address] Dr. Ramsey Mendez (U)YELLOWNormalYELLOWThe [facility] HospitalComment on above: Performed By: #### ERUR #### [facility] [address] [address] [address] Ramsey Phan micrscopic examination will be performed if indicated. NormalTwin City HospitalComment on above:Performed By: #### ERUR #### [facility] [address] [place] [address] Dr. Ramsey SanchezGlucose Ql (U)NegativeNormalNEGATIVETwin City HospitalComment on above:Performed By: #### ERUR #### [facility] [address] [place] [address] Dr. Ramsey SanchezHemoglobin Ql (U)NegativeNormalNEGATIVETwin City Hospital Comment on above:Performed By: #### ERUR #### [facility] Laboratory [address] [place] [address] Dr. Ramsey SanchezKetones Ql (U)NegativeNormalNEGATIVETwin City HospitalComment on above:Performed By: #### ERUR #### [facility] Laboratory [address] [place] [address] Dr. Ramsey SanchezLEUKOCYTESNegativeNormalNEGATIVETwin City HospitalComment on above:Performed By: #### ERUR #### [facility] Laboratory [address] [place] [address] Dr. Ramsey SanchezNitrite Ql (U)NegativeNormalNEGATIVETwin City HospitalComment on above:Performed By: #### ERUR #### [facility] Laboratory [address] [place] [address] Dr. Ramsey SanchezpH (U)5.5 [pH]Normal5-9T[facility] City HospitalComment on above: Performed By: #### ERUR #### [facility] Laboratory [address] [place] [address] Dr. Ramsey SanchezSPEC GRAVITY1.302Nmxene3.005-<=1.025T[facility] City HospitalComment on above:Performed By: #### ERUR #### [facility] Laboratory [address] [place] [address] Dr. Ramsey SanchezUA PROTEINNegativeNormalNEGATIVE/ TRACETwin City Hospital Comment on above:Performed By: #### ERUR #### [facility] Laboratory [address] [address] [address] Ramsey Hemphill MICRO INDNOT INDICATEDNormalThe [facility] HospitalComment on above:Performed By: #### ERUR #### [facility] Laboratory [address] [place] [address] Dr. Ramsey SanchezUrobilinogen Qn (U)0.2 {Leatha'U}/dLNormal0.2 - 1.0The [facility] HospitalComment on above:Performed By: #### ERUR #### [facility] Laboratory [address] [place] [address] Dr. Ramsey SanchezLACTATE/LACTIC ACIDon [id number] [Moles/Vol]1.7 mmol/L Normal0.4-2.0The [facility] HospitalComment on above:Performed By: #### LACT #### [facility] Laboratory [address] [place] [address] Dr. Ramsey Pete 14(COMP METB)on [id number] [Mass/Vol]3.1 g/dL Critically low3.4-5.0The [facility] HospitalComment on above:Performed By: #### CMP, HSTROPN #### [facility] Laboratory [address] [place] [address] Dr. Ramsey SanchezAlbumin/Globulin [Mass ratio]0.8 {ratio}NormalThe [facility] HospitalComment on above:Performed By: #### CMP, HSTROPN #### [facility] Laboratory [address] [place] [address] Dr. Ramsey QureshiP [Catalytic activity/Vol]73 U/ARlbodp63-980Kgr [facility] HospitalComment on above:Performed By: #### CMP, HSTROPN #### [facility] Laboratory [address] [place] [address] Dr. Ramsey QureshiT [Catalytic activity/Vol]22 U/OFqubds09-58Ztd [facility] HospitalComment on above:Performed By: #### CMP, HSTROPN #### [facility] Laboratory [address] [address] [address] Ramsey SanchezAnion gap [Moles/Vol]13.5 mmol/LNormalTwin City Hospital Comment on above:Performed By: #### CMP, HSTROPN #### [facility] Laboratory [address] [address] [address] Ramsey SanchezAST [Catalytic activity/Vol]26 U/LOmdkzd01-72Pkv [facility] HospitalComment on above:Performed By: #### CMP, HSTROPN #### [facility] Laboratory [address] [address] [address] Ramsey SanchezBilirubin [Mass/Vol]0.4 mg/dLNormal0.2-1.0[facility] Comment on above:Performed By: #### CMP, HSTROPN #### [facility] Laboratory [address] [place] [address] Dr. Ramsey SanchezCalcium [Mass/Vol]8.4 mg/dLCritically low8.5-10.1The [facility] HospitalComment on above:Performed By: #### CMP, HSTROPN #### [facility] Laboratory [address] [address] [address] Ramsey SanchezChloride [Moles/Vol]107 mmol/RXhsinb41-245Uwu [facility] Comment on above:Performed By: #### CMP, HSTROPN #### [facility] Laboratory [address] [address] [address] Ramsey SanchezCO2 [Moles/Vol]26.1 mmol/DXakmve96.0-32.0The [facility] Comment on above:Performed By: #### CMP, HSTROPN #### [facility] Laboratory [address] [address] [address] Ramsey SanchezCreatinine [Mass/Vol]0.94 mg/dLNormal0.70-1.30The [facility] HospitalComment on above:Performed By: #### CMP, HSTROPN #### [facility] Laboratory [address] [address] [address] Mustafa ChangEGFR-AF GHANAIAN>60Normal>=60The [facility] HospitalComment on above:Performed By: #### CMP, HSTROPN #### [facility] Laboratory [address] [place] [address] Dr. Ramsey Spence-NON AF GHANAIAN>60Normal>=60The [facility] HospitalComment on above:Performed By: #### CMP, HSTROPN #### [facility] Laboratory [address] [place] [address] Dr. Ramsey SanchezGlobulin (S) [Mass/Vol]3.7 g/dLNormalThe [facility] HospitalComment on above:Performed By: #### CMP, HSTROPN #### [facility] Laboratory [address] [place] [address] Dr. Ramsey SanchezGlucose [Mass/Vol]118 mg/dLCritically hmqf16-293Hiz [facility] HospitalComment on above:Performed By: #### CMP, HSTROPN #### [facility] Laboratory [address] [place] [address] Dr. Ramsey SanchezPotassium [Moles/Vol]3.6 mmol/LNormal3.5-5.1[facility] Comment on above:Performed By: #### CMP, HSTROPN #### [facility] Laboratory [address] [place] [address] Dr. Ramsey SanchezProtein [Mass/Vol]6.8 g/dLNormal6.4-8.2[facility] Comment on above:Performed By: #### CMP, HSTROPN #### [facility] Laboratory [address] [place] [address] Dr. Ramsey SanchezSodium [Moles/Vol]143 mmol/HXssoal799-761EnvTwin City Hospital Comment on above:Performed By: #### CMP, HSTROPN #### [facility] Laboratory [address] [place] [address] Dr. Ramsey SanchezUrea nitrogen [Mass/Vol]19.0 mg/dLCritically high7.0-18.0The [facility] HospitalComment on above:Performed By: #### CMP, HSTROPN #### [facility] Laboratory [address] [address] [address] Ramsey SanchezUrea nitrogen/Creatinine [Mass ratio]20.2 mg/mgNoGreene Memorial HospitalComment on above:Performed By: #### CMP, HSTROPN #### [facility] Laboratory [address] [address] [address] Ramsey WaltonOPOYAN, HIGH SENSITIVITYon 88-57-1940POYPMF9.8 pg/mLNormal 4.0-76.1The [facility] on above:Result Comment: CUT-OFF POINTS HAVE BEEN ESTABLISHED BASED ON THE FOURTH UNIVERSAL DEFINITIONS OF MYOCARDIAL INFARCTION. THE UPPER REFERENCE LIMIT (URL) OF TROPONIN, DEFINED THE 99TH PERCENTILE OF cTnI DISTRIBUTION IN A REFERENCE POPULATION, HAS BEEN CONFIRMED THE DECISION THRESHOLD FOR DE DIAGNOSIS.Performed By: #### CMP, HSTROPN #### [facility] Laboratory [address] [place] [address] Dr. Ramsey SanchezXR CHEST 1 [facility] [id number] CHEST 1 VEXAM: XR CHEST 1 V [...] hardware and overlying objects out of the jpzyg-rt-auzc. Electronically authenticated by: ALANNA CARLOS Date: 2022-09-29 16:37[facility] - CincinnatiBNPon [id number] peptide B (Bld) [Mass/Vol]720.0 pg/mLNormal<=1,800.0The [facility] on above:Performed By: #### CXSTOOL #### [facility] Laboratory [address] [address] [address] Ramsey Bruno RAFI ADMITon [id number] [Catalytic activity/Vol]198 U/L Cemobi46-993Lzl [facility] HospitalComment on above:Performed By: #### CXSTOOL #### [facility] Laboratory [address] [place] [address] Dr. Ramsey Reyes.MB [Mass/Vol]2.62 ng/mLNormal<=3.60The [facility] Comment on above:Performed By: #### CXSTOOL #### [facility] Laboratory [address] [place] [address] Dr. Ramsey AriasTROP8.8 pg/mLNormal4.0-76.1The [facility] HospitalComment on above:Result Comment: CUT-OFF POINTS HAVE BEEN ESTABLISHED BASED ON THE FOURTH UNIVERSAL DEFINITIONS OF MYOCARDIAL INFARCTION. THE UPPER REFERENCE LIMIT (URL) OF TROPONIN, DEFINED THE 99TH PERCENTILE OF cTnI DISTRIBUTION IN A REFERENCE POPULATION, HAS BEEN CONFIRMED THE DECISION THRESHOLD FOR DE DIAGNOSIS.Performed By: #### CXSTOOL #### [facility] Laboratory [address] [place] [address] Dr. Ramsey Mcrae69 ng/xQUghjtd05-33Oxz [facility] on above: Performed By: #### CXSTOOL #### [facility] Laboratory [address] [place] [address] Dr. Ramsey Eller AUTO DIFFon [id number] #0.0 103/ulNormal0.0-0.1The [facility] HospitalComment on above:Performed By: #### CBC #### [facility] Laboratory [address] [place] [address] Dr. Ramsey Kirbysophils/100 WBC (Bld)0.2 %Normal0.2-2.0The [facility] Comment on above:Performed By: #### CBC #### [facility] Laboratory [address] [place] [address] Dr. Ramsey Ortiz #0.0 103/ulNormal0.0-0.7The [facility] HospitalComment on above: Performed By: #### CBC #### [facility] Laboratory [address] [address] [address] Ramsey Canoosinophils/100 WBC (Bld)0.1 %Critically low0.9-7.0The [facility] HospitalComment on above:Performed By: #### CBC #### [facility] Laboratory [address] [place] [address] Dr. Ramsey Canorythrocyte distribution width (RBC) [Ratio]14.0 %Wvorlj14.0-15.0 The [facility] HospitalComment on above:Performed By: #### CBC #### [facility] Laboratory [address] [place] [address] Dr. Ramsey SanchezHematocrit (Bld) [Volume fraction]45.4 %Ztxccc71.0-54.0The [facility] HospitalComment on above:Performed By: #### CBC #### [facility] Laboratory [address] [place] [address] Dr. Ramsey SanchezHemoglobin (Bld) [Mass/Vol]14.4 g/wCAwoqub69.0-18.0The [facility] HospitalComment on above:Performed By: #### CBC #### [facility] Laboratory [address] [place] [address] Dr. Ramsey Nowak #0.08 10e3/ulCritically high0.00-0.03The [facility] Comment on above:Performed By: #### CBC #### [facility] Laboratory [address] [place] [address] Dr. Ramsey oNwak %0.9 %Critically high0.0-0.5The [facility] HospitalComment on above:Performed By: #### CBC #### [facility] Laboratory [address] [place] [address] Dr. Ramsey FaulknerH #1.6 103/ulNormal1.2-3.8The [facility] Northment on above:Performed By: #### CBC #### [facility] Laboratory [address] [place] [address] Dr. Ramsey Olivamphocytes/100 WBC (Bld)17.9 %Critically low20.5-60.0The [facility] HospitalComment on above:Performed By: #### CBC #### [facility] Laboratory [address] [place] [address] Dr. Ramsey Mckinley DIFF REQNONormalThe [facility] HospitalComment on above: Performed By: #### CBC #### [facility] Laboratory [address] [place] [address] Dr. Ramsey Enriquez (RBC) [Entitic mass]29.8 fqHfswhd67.9-34.0The [facility] HospitalComment on above:Performed By: #### CBC #### [facility] Laboratory [address] [place] [address] Dr. Ramsey Enriquez (RBC) [Mass/Vol]31.7 g/jARfftkz30.9-35.2The [facility] HospitalComment on above:Performed By: #### CBC #### [facility] Laboratory [address] [place] [address] Dr. Ramsey Enriquez (RBC) [Entitic vol]94.0 nYLgzybx22.0-94.0The [facility] HospitalComment on above:Performed By: #### CBC #### [facility] Laboratory [address] [place] [address] Dr. Ramsey Ignacio #0.9 103/ulCritically high0.3-0.8ThUniversity Hospitals Health System Comment on above:Performed By: #### CBC #### [facility] Laboratory [address] [place] [address] Dr. Ramsey Ervinocytes/100 WBC (Bld)9.6 %Normal1.7-12.0[facility] Comment on above:Performed By: #### CBC #### [facility] Laboratory [address] [place] [address] Dr. Ramsey Cooney #6.3 103/ulNormal1.4-6.5The [facility] HospitalComment on above:Performed By: #### CBC #### [facility] Laboratory [address] [place] [address] Dr. Ramsey Torresutrophils/100 WBC (Bld)71.3 %Smtojp24.0-75.0The [facility] HospitalComment on above:Performed By: #### CBC #### [facility] Laboratory [address] [place] [address] Dr. Ramsey Aguirre mean volume (Bld) [Entitic vol]11.0 fLNormal9.5-13.5The [facility] HospitalComment on above:Performed By: #### CBC #### [facility] Laboratory [address] [place] [address] Dr. Ramsey SanchezPLT203 103/tuNukdcc939-416Rtq [facility] HospitalComment on above: Performed By: #### CBC #### [facility] Laboratory [address] [place] [address] Dr. Ramsey SanchezRBC4.83 106/ulNormal4.70-6.10The [facility] HospitalComment on above:Performed By: #### CBC #### [facility] Laboratory [address] [place] [address] Dr. Ramsey SanchezWBC8.9 103/ulNormal4.0-11.0The [facility] HospitalComment on above: Performed By: #### CBC #### [facility] Laboratory [address] [place] [address] Dr. Ramsey SanchezLACTATE/LACTIC ACIDon [id number] [Moles/Vol]1.0 mmol/L Normal0.4-2.0The [facility] HospitalComsurgeons choice medical center on above:Performed By: #### CBC #### [facility] Laboratory [address] [place] [address] Dr. Ramsey SanchezPROF 14(COMP METB)on [id number] [Mass/Vol]3.7 g/dLNormal 3.4-5.0The [facility] HospitalComment on above:Performed By: #### CXSTOOL #### [facility] Laboratory [address] [place] [address] Dr. Ramsey SanchezAlbumin/Globulin [Mass ratio]0.9 {ratio}NormalThe [facility] HospitalComment on above:Performed By: #### CXSTOOL #### [facility] Laboratory [address] [address] [address] Ramsey Mcgrath [Catalytic activity/Vol]68 U/ZGickno51-982Tbk [facility] HospitalComment on above:Performed By: #### CXSTOOL #### [facility] Laboratory [address] [address] [address] Ramsey QureshiT [Catalytic activity/Vol]23 U/MJgpkws54-98Rvv [facility] HospitalComment on above:Performed By: #### CXSTOOL #### [facility] [address] [address] [address] Ramsey Regaladoon gap [Moles/Vol]12.6 mmol/LNormalThe [facility] Comment on above:Performed By: #### CXSTOOL #### [facility] Laboratory [address] [address] [address] Ramsey SanchezAST [Catalytic activity/Vol]21 U/UCmwmei58-03Bfy [facility] HospitalComment on above:Performed By: #### CXSTOOL #### [facility] [address] [address] [address] Ramsey SanchezBilirubin [Mass/Vol]0.3 mg/dLNormal0.2-1.0The [facility] Comment on above:Performed By: #### CXSTOOL #### [facility] [address] [address] [address] Ramsey SanchezCalcium [Mass/Vol]8.8 mg/dLNormal8.5-10.1The [facility] Comment on above:Performed By: #### CXSTOOL #### [facility] [address] [address] [address] Ramsey SanchezChloride [Moles/Vol]104 mmol/VNquxgu22-275Sdd [facility] Comment on above:Performed By: #### CXSTOOL #### [facility] [address] [address] [address] Ramsey SanchezCO2 [Moles/Vol]26.7 mmol/LGhpbfy33.0-32.0The [facility] Comment on above:Performed By: #### CXSTOOL #### [facility] [address] [address] [address] Ramsey SanchezCreatinine [Mass/Vol]1.27 mg/dLNormal0.70-1.30The [facility] HospitalComment on above:Performed By: #### CXSTOOL #### [facility] [address] [address] [address] Mustafa ChangEGFR-AF GHANAIAN>60Normal>=60The [facility] HospitalComment on above:Performed By: #### CXSTOOL #### [facility] [address] [address] [address] Ramsey CanoGFR-NON AF FLZHHDPY67 mL/min/1.67k5Gbfmnzxizo low>=60The [facility] HospitalComment on above:Performed By: #### CXSTOOL #### [facility] [address] [place] [address] Dr. Ramsey SanchezGlobulin (S) [Mass/Vol]3.9 g/dLNormalThe [facility] HospitalComment on above:Performed By: #### CXSTOOL #### [facility] [address] [place] [address] Dr. Ramsey SanchezGlucose [Mass/Vol]114 mg/dLCritically apiq96-119Ohr [facility] HospitalComment on above:Performed By: #### CXSTOOL #### [facility] [address] [place] [address] Dr. Ramsey SanchezPotassium [Moles/Vol]4.3 mmol/LNormal3.5-5.1The [facility] Comment on above:Performed By: #### CXSTOOL #### [facility] [address] [place] [address] Dr. Ramsey SanchezProtein [Mass/Vol]7.6 g/dLNormal6.4-8.2The [facility] Comment on above:Performed By: #### CXSTOOL #### [facility] [address] [place] [address] Dr. Ramsey SanchezSodium [Moles/Vol]139 mmol/MXduoxu125-827Ejx [facility] Comment on above:Performed By: #### CXSTOOL #### [facility] [address] [address] [address] Ramsey SanchezUrea nitrogen [Mass/Vol]19.0 mg/dLCritically high7.0-18.0The [facility] HospitalComment on above:Performed By: #### CXSTOOL #### [facility] [address] [address] [address] Ramsye SanchezUrea nitrogen/Creatinine [Mass ratio]15.0 mg/mgNoGreene Memorial HospitalComment on above:Performed By: #### CXSTOOL #### [facility] [address] [address] [address] Ramsey SanchezXR CHEST 1 Von [id number] CHEST 1 VXR CHEST 1 V 09/24/2022 [...] Electronically authenticated by: TRACY HIGHTOWER Date: 2022-09-24 23:29[facility] CincinnatiCOVID + FLU Quick Testingon [id number]-CoV-2 (COVID-19) RNA MICHELLE+probe Ql (Unsp spec)PositiveNort [employer] Other COVID + FLU Quick TestingNegativeNoAffinity Systems Other POINT OF CARE GLUCOSEon [id number] [Mass/Vol] 146 mg/dLCritically wvaj62-616Zja [facility] HospitalComment on above:Performed By: #### CXSTOOL #### [facility] [id number] Ramsey SanchezUS ARTERY UP EXT BILon [id number] ARTERY UP EXT BILEXAMINATION: US ARTERY UP [...] Electronically authenticated by: ERWIN FALCON Date: 2022-04-16 17:21[facility] - CincinnatiLACTOFERRIN FECAL QUANTon [id number], Fecal, Quant. 1.43 ug/mL(g)Normal0.00-7.24[facility] HospitalComment on above:Result Comment: . Baseline (normal) 0.00 [...] (IBS).Performed By: #### CXSTOOL #### [facility] [address] [place] [address] Dr. Ramsey Eller AUTO DIFFon [id number] #0.1 103/ulNormal0.0-0.1The [facility] HospitalComment on above:Performed By: #### CBC #### [facility] [address] [place] [address] Dr. Ramsey SanchezBasophils/100 WBC (Bld)0.9 %Normal0.2-2.0The [facility] Comment on above:Performed By: #### CBC #### [facility] [address] [place] [address] Dr. Mustafa ChangEDelphine #0.3 103/ulNormal0.0-0.7The [facility] HospitalComment on above: Performed By: #### CBC #### [facility] [address] [address] [address] Ramsey Canoosinophils/100 WBC (Bld)2.6 %Normal0.9-7.0The [facility] Comment on above:Performed By: #### CBC #### [facility] [address] [address] [address] Ramsey Canorythrocyte distribution width (RBC) [Ratio]13.2 %Gbmqev90.0-15.0 The [facility] HospitalComment on above:Performed By: #### CBC #### [facility] [address] [place] [address] Dr. Ramsey SanchezHematocrit (Bld) [Volume fraction]46.1 %Hyqxas67.0-54.0The [facility] HospitalComment on above:Performed By: #### CBC #### [facility] [address] [place] [address] Dr. Ramsey SanchezHemoglobin (Bld) [Mass/Vol]14.5 g/cJLanyfk18.0-18.0The [facility] HospitalComment on above:Performed By: #### CBC #### [facility] [address] [place] [address] Dr. Ramsey Nowak #0.15 10e3/ulCritically high0.00-0.03The [facility] Comment on above:Performed By: #### CBC #### [facility] [address] [place] [address] Dr. Ramsey Nowak %1.3 %Critically high0.0-0.5The [facility] HospitalComment on above:Performed By: #### CBC #### [facility] [address] [place] [address] Dr. Ramsey FaulknerH #2.7 103/ulNormal1.2-3.8The [facility] HospitalComment on above:Performed By: #### CBC #### [facility] [address] [place] [address] Dr. Ramsey Olivamphocytes/100 WBC (Bld)23.0 %Puyxru82.5-60.0The [facility] HospitalComment on above:Performed By: #### CBC #### [facility] [address] [address] [address] Ramsey Mckinley DIFF REQNONormalThe [facility] HospitalComment on above: Performed By: #### CBC #### [facility] [address] [place] [address] Dr. Ramsey Enriquez (RBC) [Entitic mass]31.0 otRdluvu78.9-34.0The [facility] HospitalComment on above:Performed By: #### CBC #### [facility] [address] [place] [address] Dr. Ramsey Enriquez (RBC) [Mass/Vol]31.5 g/uYBaorwq33.9-35.2The [facility] HospitalComment on above:Performed By: #### CBC #### [facility] [address] [place] [address] Dr. Ramsey Enriquez (RBC) [Entitic vol]98.5 fLCritically high80.0-94.0The [facility] HospitalComment on above:Performed By: #### CBC #### [facility] [address] [place] [address] Dr. Ramsey Ignacio #0.9 103/ulCritically high0.3-0.8ThUniversity Hospitals Health System Comment on above:Performed By: #### CBC #### [facility] [address] [place] [address] Dr. Ramsey Ervinocytes/100 WBC (Bld)7.4 %Normal1.7-12.0[facility] Comment on above:Performed By: #### CBC #### [facility] [address] [place] [address] Dr. Ramsey Cooney #7.6 103/ulCritically high1.4-6.5ThUniversity Hospitals Health System Comment on above:Performed By: #### CBC #### [facility] [address] [place] [address] Dr. Ramsey Torresutrophils/100 WBC (Bld)64.8 %Dojehk67.0-75.0The [facility] HospitalComsur[facility] on above:Performed By: #### CBC #### [facility] [address] [address] [address] Ramsey SanchezPlatelet mean volume (Bld) [Entitic vol]11.5 fLNormal9.5-13.5The [facility] HospitalComment on above:Performed By: #### CBC #### [facility] [address] [address] [address] Ramsey SanchezPLT243 103/meToptwb703-843Gqu [facility] HospitalComsurgeons [facility] on above: Performed By: #### CBC #### [facility] [address] [place] [address] Dr. Ramsey SanchezRBC4.68 106/ulCritically low4.70-6.10The [facility] on above:Performed By: #### CBC #### [facility] [address] [place] [address] Dr. Ramsey SanchezWBC11.7 103/ulCritically high4.0-11.0The [facility]Comsur[facility] on above:Performed By: #### CBC #### [facility] [address] [place] [address] Dr. Ramsey SanchezGLYCOHEMOGLOBIN A1Con [id number] RECOMMENDATIONSEE BELOWNormal [facility] HospitalComsur[facility] on above:Result Comment: ADA RECOMMENDED LIMIT 4.0 - 6.0 ADA THERAPEUTIC TARGET < 7.0 ACTION SUGGESTED > 7.0Performed By: #### A1C #### [facility] [address] [place] [address] Dr. Ramsey SanchezGlucose [Mass/Vol]123 mg/dLNormalThUniversity Hospitals Health SystemComsurgeons choice medical center on above:Performed By: #### A1C #### [facility] [address] [place] [address] Dr. Ramsey SanchezHbA1c (Bld) [Mass fraction]5.9 %Normal4.5-6.2The [facility] on above:Performed By: #### A1C #### [facility] [address] [place] [address] Dr. Ramsey SanchezLIPID PROFILEon [id number]-HDL RATIO [facility] HospitalComment on above:Result Comment: 3.3 - 4.4 LOW RISK 4.4 - 7.1 AVERAGE RISK 7.1 - 11.0 MODERATE RISK >11.0 HIGH RISKPerformed By: #### CBC #### [facility] [address] [address] [address] Ramsey SanchezCholesterol [Mass/Vol]121 mg/dLNormal<=200[facility] Comment on above:Performed By: #### CBC #### [facility] [address] [address] [address] Ramsey SanchezCholesterol in HDL [Mass/Vol]30 mg/dLCritically gfm55-43VbhTwin City HospitalComment on above:Performed By: #### CBC #### [facility] [address] [address] [address] Ramsey SanchezCholesterol in LDL [Mass/Vol]47.6 mg/dLSelect Medical Specialty Hospital - CincinnatiComment on above:Performed By: #### CBC #### [facility] [address] [address] [address] Ramsey Lyonsestermary jo.total/Cholesterol in HDL [Mass ratio]4.0 {ratio} NormalTwin City HospitalComment on above:Performed By: #### CBC #### [facility] [address] [address] [address] Ramsey Harris NORMAL> or = 60 mg/dl - LOW CARDIOVASCULAR RISK <40 mg/dl - HIGH CARDIOVASCULAR RISKSelect Medical Specialty Hospital - CincinnatiComment on above:Performed By: #### CBC #### [facility] [address] [address] [address] Ramsey SanchezLDL CALC NORMALSEE [facility] HospitalComment on above:Result Comment: <100 mg/dl OPTIMAL 100 - 129 mg/dl NEAR OR ABOVE OPTIMAL 130 - 159 mg/dl BORDERLINE HIGH 160 - 189 mg/dl HIGH >190 mg/dl VERY HIGH Performed By: #### CBC #### [facility] [address] [address] [address] Ramsey SanchezTriglyceride [Mass/Vol]217 mg/dLCritically high<=150The [facility] Northment on above:Performed By: #### CBC #### [facility] [address] [place] [address] Dr. Ramsey SrinivasanLDL CALC43.4 mg/dLNormalThe [facility] HospitalComment on above: Performed By: #### CBC #### [facility] [address] [address] [address] Ramsey Eduardo PROFILEon 12-19-4213Vajmppe [Mass/Vol]3.9 g/dLNormal3.4-5.0 The [facility] HospitalComment on above:Performed By: #### CBC #### [facility] [address] [place] [address] Dr. Ramsey SanchezAlbumin/Globulin [Mass ratio]1.1 {ratio}NormalThe [facility] HospitalComment on above:Performed By: #### CBC #### [facility] [address] [place] [address] Dr. Ramsey Mcgrath [Catalytic activity/Vol]75 U/ESqeiek58-520Efv [facility] HospitalComment on above:Performed By: #### CBC #### [facility] [address] [place] [address] Dr. Ramsey Mclean [Catalytic activity/Vol]21 U/VEgxiqh75-61Pon [facility] Northment on above:Performed By: #### CBC #### [facility] [address] [place] [address] Dr. Ramsey Wilson [Catalytic activity/Vol]17 U/LEnvkzd45-99Dek [facility] on above:Performed By: #### CBC #### [facility] [address] [place] [address] Dr. Ramsey Pineda, CONJUGATED0.1 mg/dLNormal0.0-0.2The [facility] on above:Performed By: #### CBC #### [facility] [address] [place] [address] Dr. Yilan ChangBilirubin [Mass/Vol]0.4 mg/dLNormal0.2-1.0The [facility] Comment on above:Performed By: #### CBC #### [facility] [address] [place] [address] Dr. Ramsey SanchezGlobulin (S) [Mass/Vol]3.5 g/dLNormalThe [facility] HospitalComment on above:Performed By: #### CBC #### [facility] [address] [place] [address] Dr. Ramsey SanchezProtein [Mass/Vol]7.4 g/dLNormal6.4-8.2The [facility] Comment on above:Performed By: #### CBC #### [facility] [address] [place] [address] Dr. Ramsey DiamondROALBUMIN, RAND URon 89-65-7089xUUU<1.3Normal<=30.0The [facility] HospitalComment on above:Performed By: #### MALBR #### [facility] [address] [place] [address] Dr. Ramsey SanchezPROF CHEM 8 (BAS METB)on 80-35-3853Hqrjx gap [Moles/Vol]12.6 mmol/LNormalTwin City HospitalComment on above:Performed By: #### CBC #### [facility] [address] [place] [address] Dr. Ramsey SanchezCalcium [Mass/Vol]8.9 mg/dLNormal8.5-10.1The [facility] Comment on above:Performed By: #### CBC #### [facility] [address] [place] [address] Dr. Ramsey SanchezChloride [Moles/Vol]103 mmol/BYzqwsz05-923Dft [facility] Comment on above:Performed By: #### CBC #### [facility] [address] [place] [address] Dr. Ramsey SanchezCO2 [Moles/Vol]28.5 mmol/UBodutc74.0-32.0The [facility] Comment on above:Performed By: #### CBC #### [facility] [address] [address] [address] Ramsey SanchezCreatinine [Mass/Vol]0.89 mg/dLNormal0.70-1.30The [facility] HospitalComment on above:Performed By: #### CBC #### [facility] [address] [address] [address] Ramsey CanoGFR-AF GHANAIAN>60Normal>=60The [facility] HospitalComment on above:Performed By: #### CBC #### [facility] [address] [address] [address] Ramsey CanoGFR-NON AF GHANAIAN>60Normal>=60The [facility] HospitalComment on above:Performed By: #### CBC #### [facility] [address] [address] [address] Ramsey SanchezGlucose [Mass/Vol]102 mg/bDQumedp28-593Iyq [facility] Comment on above:Performed By: #### CBC #### [facility] [address] [place] [address] Dr. Ramsey SanchezPotassium [Moles/Vol]4.1 mmol/LNormal3.5-5.1The [facility] Comment on above:Performed By: #### CBC #### [facility] [address] [place] [address] Dr. Ramsey SanchezSodium [Moles/Vol]140 mmol/WOxyljg474-628Mhu [facility] Comment on above:Performed By: #### CBC #### [facility] [address] [place] [address] Dr. Ramsey SanchezUrea nitrogen [Mass/Vol]16.0 mg/dLNormal7.0-18.0The [facility] HospitalComment on above:Performed By: #### CBC #### [facility] [address] [place] [address] Dr. Ramsey SanchezUrea nitrogen/Creatinine [Mass ratio]18.0 mg/mgNormalThe [facility] HospitalComment on above:Performed By: #### CBC #### [facility] [address] [address] [address] Ramsey Beauchamp CULTUREon 49-80-5107Mtetbzbztfcjm CultureFinal reportNormCleveland Clinic Children's Hospital for RehabilitationComment on above:Performed By: #### CXSTOOL #### [facility] [address] [place] [address] Dr. Ramsey Cano coli Shiga Toxin EIANegativeNormalNegativeTwin City Hospital Comment on above:Performed By: #### CXSTOOL #### [facility] [address] [place] [address] Dr. Ramsey Chapman 1CBlanchard Valley Health System Bluffton HospitalComment on above:Result Comment: No Salmonella or Shigella recovered.Performed By: #### CXSTOOL #### [facility] [address] [place] [address] Dr. Ramsey Chapman Comment: No Campylobacter species isolated. Salmonella/Shigella ScreenFinal reportSelect Medical Specialty Hospital - CincinnatiComment on above:Performed By: #### CXSTOOL #### [facility] [address] [place] [address] Dr. Ramsey SanchezVITAMIN D 25 OHon 58-94-1784JXY D 25-OH40.2 ng/mLNormalTwin City HospitalComment on above:Performed By: #### VITAD #### [facility] [address] [place] [address] Dr. Ramsey Araiza RANGESSEE [facility]on HospitalComment on above: Result Comment: <20 ng/mL Vit D deficient 20 - <30 ng/mL Vit D insufficient 30 - 100 ng/mL Vit D sufficient >100 ng/mL Potential ToxicityPerformed By: #### VITAD #### [facility] [address] [place] [address] Dr. Ramsey Washburn GLUCOSE LABon 39-91-7825Fldlckp [Mass/Vol]120 mg/qQGvda88-203 The [facility] CenterComment on above:Performed By: #### [id number] #### [facility] [address] [place] [address], [facility] CORPORATIONGlucose [Mass/Vol]114 mg/qSUtfg40-430Jfn [facility] CenterComment on above:Performed By: #### [id number] #### [facility] [address] [place] [address], USAGlucose [Mass/Vol]136 mg/hSMpdx01-083Mup [facility] CenterComment on above:Performed By: #### 10527 #### [facility] [address] [place] [address], USABASIC METABOLIC PANELon 24-65-3723Knlvwkp [Mass/Vol]9.3 mg/dLNormal8.6-10.3The [facility] CenterComment on above: Performed By: #### 61887 #### [facility] [address] [place] [address], USAChloride [Moles/Vol]103 mmol/TEkjeez86-516Scw [facility] CenterComment on above:Performed By: #### 79967 #### [facility] [address] [place] [address], USACO2 [Moles/Vol]27 mmol/SYoucjp62-54Qfv [facility] CenterComment on above:Performed By: #### 84115 #### [facility] [address] [place] [address], USACreatinine [Mass/Vol]1.04 mg/dLNormal0.70-1.30The [facility] CenterComment on above:Performed By: #### 22178 #### [facility] [address] [place] [address], USAGFR/1.73 sq M predicted among blacks MDRD (S/P/Bld) [Vol rate/Area]mL/min/{1.73_m2}Normal>60The [facility] Comment on above:Result Comment: Calculation may not be valid for patients over 70 yearsPerformed By: #### [id number] #### [facility] [address] [place] [id number], USAGFR/1.73 sq M predicted among non-blacks MDRD (S/P/Bld) [Vol rate/Area]mL/min/{1.73_m2}Normal>60The [facility] Comment on above:Result Comment: Calculation may not be valid for patients over 70 yearsPerformed By: #### [id number] #### [facility] [address] [place] [address], USAGlucose [Mass/Vol]128 mg/bFBpzj93-547Sch [facility] CenterComment on above:Performed By: #### [id number] #### [facility] [address] [facility] [place] [address], USAPotassium [Moles/Vol]4.2 mmol/LNormal3.5-5.1The [facility] CenterComment on above:Performed By: #### 22408 #### [facility] [address] [facility] [place] [address], USASodium [Moles/Vol]139 mmol/XNwwzlx978-741Apo [facility] CenterComment on above:Performed By: #### 89246 #### [facility] [address] [facility] [place] [place] [address], USAUrea nitrogen [Mass/Vol]20 mg/dLNormal7-25The [facility] CenterComment on above:Performed By: #### 15056 #### [facility] [address] [facility] [place] [place] [address], USACBC COMPLETE BLOOD COUNTon 77-71-6853Qwlailaaefj distribution width (RBC) [Ratio]13.9 %Klkmxb92.5-15.0The [facility] CenterComment on above:Performed By: #### [id number] #### [facility] [address] [facility] [place] [address], USAHematocrit (Bld) [Volume fraction]44.9 %Zrefma27.0-50.0The [facility] CenterComment on above:Performed By: #### 77629 #### [facility] [address] [place] [address], [facility]ARE CORPORATIONHemoglobin (Bld) [Mass/Vol]14.5 g/xZOsdnws55.0-17.0The [facility] CenterComment on above:Performed By: #### 36334 #### [facility] [address] [place] [address], [facility] CARE CORPORATIONMCH (RBC) [Entitic mass]30.7 qkTybcwk83.0-33.0The [facility] CenterComment on above:Performed By: #### 99596 #### [facility] [address] [place] [address], [facility] CARE CORPORATIONMCHC (RBC) [Mass/Vol]32.3 g/lFEofkls97.0-35.0The [facility] CenterComment on above:Performed By: #### 33805 #### [facility] [address] [place] [address], [facility]ARE CORPORATIONMCV (RBC) [Entitic vol]95.1 mTTszkwy79.0-98.0The [facility] CenterComment on above:Performed By: #### 68509 #### [facility] [address] [place] [address], USANucleated RBC/100 WBC (Bld) [Ratio]0 %Normal0-0The [facility] CenterComment on above:Performed By: #### 05155 #### [facility] [address] [place] [address], USAPLAT OFA979 10*3/pYMlalvs869-887Woc [facility] CenterComment on above:Performed By: #### 65521 #### [facility] [address] [place] [address], USARBC (Bld) [#/Vol]4.72 10*6/uLNormal4.20-5.70The [facility] CenterComment on above:Performed By: #### 14782 #### [facility] [address] [place] [address], [facility] CARE CORPORATIONWBC (Bld) [#/Vol]12.83 10*3/uLHigh4.00-10.60The [facility] CenterComment on above:Performed By: #### 96310 #### [facility] [address] [place] [address], USACardiovascular Lab Reporton [id number] Lab ReportUnThe Surgical Hospital at [facility] Patient Name: [facility] MR #: [id number] Physician: Margaret Arellano, Department of M.D. Medicine Service Date: 08/30/2019 Division of Birthdate: 1940 Cardiology Room #: 3AB 636357 Adult Cardiovascular Services [place] [address] Cardiovascular Laboratory Report FINAL IMPRESSIONS: 1. 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 2. 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 3. 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 4. 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 Arellano in the [place] office in the next 2 to 4 [...] left common femoral artery was obtained. A 6-Macanese 11 cm sheath was inserted without difficulty. Limited femoral angiography was performed. Bilateral selective coronary angiography was performed using JL4 and JR4 catheters. After reviewing the images, it was elected to proceed with an interventional procedure. A 6-Macanese XB 3.5 guide catheter was advanced over [...] conclude the procedure. Attempts to deploy a 6-Macanese MynxGrip closure device were unsuccessful. Therefore, manual [...] Arellano M.D. Date Trans: 08/30/2019 05:00 P/emmanuelle DN_JN:[id number] cc: Demetrius Cooper MD [address] [address]AoxzrzXcsKettering Memorial Hospital GLUCOSE LABon [id number] [Mass/Vol]172 mg/uEAoqq90-618Svc [facility] CenterComment on above:Performed By: #### [id number] #### [facility] [address] [facility] [facility] [place] [address], [facility] CORPORATIONGlucose [Mass/Vol]138 mg/wTVggf48-868Ccb [facility] CenterComment on above:Performed By: #### 67311 #### [facility] [address] [place] [address], [facility] Vital Signs Date TimeVital SignValuePerforming CjccvzxvdFllikdwp41-37-1451 13:46-0400Body ebtesc352.1 Alexsandra Cooper MD Work Phone: [phone] [place], [place] 8093810-23-2025 13:46-0400 Body mass index (BMI) [Ratio]25.7 kg/u0CvmqqqDemetrius Cooper MD Work Phone: [phone] [place], [place] 8093810-23-2025 13:46-0400 Body vkqleh93.3 kgDemetrius Cooper MD Work Phone: [phone] [place], [place] 8093810-23-2025 13:46-0400 Diastolic blood cmfbovzi59 mm[Hg]Demetrius Cooper MD Work Phone: [phone] [place], [place] [address]10-23-2025 13:46-0400 Heart rate63 /minSleno Cooper MD Work Phone: [phone] [place], [place] 8093810-23-2025 13:46-0400 Systolic blood zhejkuzb822 mm[Hg]Demetrius Cooper MD Work Phone: [phone] [place], [place] 8093809-04-2025 09:32-0400 Body jpvolo692.1 cmFredric Itzkowitz DO Work Phone: [facility] CampusYerfyulgix05-78-6140 09:32-0400Body mass index (BMI) [Ratio]24.63 kg/z5Bgobvyq Itzkowitz DO Work Phone: [facility] CampusUzioahztfx94-25-8504 09:32-0400Body .13 kgFredric Itzkowitz DO Work Phone: [facility] CampusWnazggupsw29-65-9291 13:08-0400Body etsuco62.12 Franklyn Cooper MD Work Phone: [facility]07-28-2025 13:30-0400 Body mass index (BMI) [Ratio]26.65 kg/t7RixkluaMary Schneider MD Work Phone: [facility]07-28-2025 13:30-0400 Body jbmbji08.65 kgMary Schneider MD Work Phone: [facility]07-28-2025 13:30-0400 Diastolic blood mm[Hg]Mary Schneider MD Work Phone: [facility]07-28-2025 13:30-0400 Systolic blood istzjuto002 mm[Hg]Mary Schneider MD Work Phone: [facility]07-10-2025 09:57-0400 Body kuozchdkrpo16 [degF]Demetrius Cooper MD Work Phone: 1([phone] [place], [place] 7857207-10-2025 09:57-0400 Body kpzpoy16.02 kgDemetrius Cooper MD Work Phone: [phone]07-10-2025 09:57-0400 Diastolic blood nyznpoqb95 mm[Hg]Demetrius Cooper MD Work Phone: [phone]07-10-2025 09:57-0400 Heart rate68 /Rosalba Cooper MD Work Phone: [phone]07-10-2025 09:57-0400 Respiratory rate18 /Rosalba Cooper MD Work Phone: [phone] [place], [place] 7857207-10-2025 09:57-0400 SaO2% (BldA) [Mass fraction]98 %Demetrius Cooper MD Work Phone: [facility]07-10-2025 09:57-0400 Systolic blood layobscf871 mm[Hg]Demetrius Cooper MD Work Phone: [phone] [place], [place] 7857205-28-2025 13:56-0400 Body nomhsi290.1 cmFredric Itzkowitz DO Work Phone: [phone] CampusSidrexobum77-18-0796 13:56-0400Body mass index (BMI) [Ratio]24.63 kg/m6Bsdcuzj Itzkowitz DO Work Phone: 1(920)[facility]9410[facility] CampusOjygbscywx92-74-3573 13:56-0400Body inkhot71.13 kgFredric Itzkowitz DO Work Phone: 1(998)[facility]36[facility] CampusKacgrgzlbt66-94-2573 14:58-0400Body .64 Alexsandra Cooper MD Work Phone: 1(384)[address] [place], [place] 7314105-20-2025 12:00-0400 Diastolic blood ljiwumkh09 mm[Hg]Demetrius Cooper MD Work Phone: 1(001)[address] [place], [place] 7314105-20-2025 12:00-0400 Heart rate63 /Rosalba Cooper MD Work Phone: [phone])[address] [place], [place] 7314105-20-2025 12:00-0400 Respiratory rate16 /Rosalba Cooper MD Work Phone: [phone] [place], [place] 7314105-20-2025 12:00-0400 SaO2% (BldA) [Mass fraction]95 %Demetrius Cooper MD Work Phone: [phone])[address] [place], [place] 7314105-20-2025 12:00-0400 Systolic blood mimcfodk477 mm[Hg]Demetrius Cooper MD Work Phone: [phone])[address] [place], [place] 7314105-20-2025 11:30-0400 Inhaled oxygen flow rate4 L/Rosalba Cooper MD Work Phone: 1(775)[address] [place], [place] 7314105-20-2025 10:15-0400 Body akjkhx932.1 Alexsandra Cooper MD Work Phone: [phone] [place], [place] 7314105-20-2025 10:15-0400 Body doopyzzvjrq10.3 [degF]Demetrius Cooper MD Work Phone: [phone])[address] [place], [place] 7314105-20-2025 10:15-0400 Body .13 Franklyn Cooper MD Work Phone: [facility]05-15-2025 13:47-0400 Body yquhkv966.1 cmAngela Lowe PA Work Phone: [facility] CampusOzngwiopoq49-51-0695 13:47-0400Body mass index (BMI) [Ratio]24.63 kg/l7Cixhqx Lowe PA Work Phone: [facility] CampusVvpfxuutwv40-57-4716 13:47-0400Body crckur61.13 kgAngela Lowe PA Work Phone: [facility] CampusEnbxuifygm90-26-5111 13:47-0400Diastolic blood prutbkjp19 mm[Hg]Missy Lowe PA Work Phone: [facility] CampusAsaodwzldv99-48-8757 13:47-0400Systolic blood emunbzlw599 mm[Hg]Missy Lowe PA Work Phone: [facility] CampusWmhqtajvob92-62-9152 13:20-0400Body yddukb381.1 cmFredric Itzkowitz DO Work Phone: [facility] CampusCcsuxkdzpr14-27-3343 13:20-0400Body mass index (BMI) [Ratio]24.96 kg/i9Tsudwjs Itzkowitz DO Work Phone: [facility] CampusWdceurrqmv08-29-9108 13:20-0400Body suxfbe23.04 kgFredric Itzkowitz DO Work Phone: [facility] CampusKmfqpeqxls17-66-7796 13:20-0400Diastolic blood kagemfxa02 mm[Hg]Veena Itzkowitz DO Work Phone: [facility] CampusOuosnpmfmo50-65-3869 13:20-0400Systolic blood odacpaay80 mm[Hg]Veena Itzkowitz DO Work Phone: [facility] CampusUdelpilhie93-42-9610 14:55-0400Body voalik069.1 Alexsandra Cooper MD Work Phone: [facility]05-13-2025 14:55-0400 Body mass index (BMI) [Ratio]24.6 kg/y6UueszwDemetrius Cooper MD Work Phone: 1(596)[address] [place], [place] 7314105-13-2025 14:55-0400 Body afbugswfzlq69.8 [degF]Demetrius Cooper MD Work Phone: 1(145)[address] [place], [place] 7314105-13-2025 14:55-0400 Body qbyyxj22.13 kgDemetrius Cooper MD Work Phone: 1(975)[address] [place], [place] 7314105-13-2025 14:55-0400 Diastolic blood qfvwidpe95 mm[Hg]Demetrius Cooper MD Work Phone: 1(029)[address] [place], [place] 7314105-13-2025 14:55-0400 Heart rate66 /Rosalba Cooper MD Work Phone: 1(437)[address] [place], [place] 7314105-13-2025 14:55-0400 Systolic blood sqivpqjt99 mm[Hg]Demetrius Cooper MD Work Phone: 1(444)[address] [place], [place] 7314105-07-2025 21:13-0400 Body zqdxhptaucf86.6 [degF]Demetrius Cooper MD Work Phone: 1(755)[address] [place], [place] 7314105-07-2025 21:13-0400 Diastolic blood slagnmnf04 mm[Hg]Demetrius Cooper MD Work Phone: [phone] [address] [place], [place] 7314105-07-2025 21:13-0400 Heart rate68 /Rosalba Cooper MD Work Phone: 1(348)[address] [place], [place] 7314105-07-2025 21:13-0400 Respiratory rate18 /Rosalba Cooper MD Work Phone: 1(179)[address] [place], [place] 7314105-07-2025 21:13-0400 SaO2% (BldA) [Mass fraction]96 %Demetrius Cooper MD Work Phone: 1(726)[address] [place], [place] 7314105-07-2025 21:13-0400 Systolic blood zpsyzjgn780 mm[Hg]Demetrius Cooper MD Work Phone: 1(660)[address] [place], [place] 7314105-07-2025 15:13-0400 Body ioovco602.1 Alexsandra Cooper MD Work Phone: 1(075)393-[address] [place], [place] 7857205-07-2025 15:13-0400 Body kgDemetrius Cooper MD Work Phone: 1(613)057-[address] [place], [place] 7857204-28-2025 13:07-0400 Body .1 cmMary Schneider MD Work Phone: [facility]04-28-2025 13:07-0400 Body mass index (BMI) [Ratio]24.84 kg/c0PptzcixMary Schneider MD Work Phone: 1(258)478-[address] [place], [place] 0647704-28-2025 13:07-0400 Body usgaqhfvsmf85.8 [degF]Mary Schneider MD Work Phone: 1(177)262-[address] [place], [place] 0647704-28-2025 13:07-0400 Body .72 kgMary Schneider MD Work Phone: 1(991)716-[address] [place], [place] 0647704-28-2025 10:14040 Body fafydu709.56 Alexsandra Cooper MD Work Phone: 1(299)[address]04-28-2025 10:140400 Body mass index (BMI) [Ratio]25.7 kg/h4AyjjpuDemetrius Cooper MD Work Phone: 1(316)[address]04-28-2025 10:14040 Body ggcmum04.03 kgDemetrius Cooper MD Work Phone: 1(411)423-[address] [place], [place] 7857204-28-2025 10:14-0400 Diastolic blood mfaivddx90 mm[Hg]Demetrius Cooper MD Work Phone: 1(462)421-[address] [place], [place] 7857204-28-2025 10:14-0400 Heart rate76 /minSleno Cooper MD Work Phone: 1(724)715-[address] [place], [place] 7857204-28-2025 10:14-0400 SaO2% (BldA) [Mass fraction]98 %Demetrius Cooper MD Work Phone: 1(419)[address] [place], [place] 7314104-28-2025 10:14-0400 Systolic blood tbzofejf093 mm[Hg]Demetrius Cooper MD Work Phone: 1(992)[address] [place], [place] 7314104-09-2025 09:49-0400 Body ldkdlezswsg14.5 [degF]Demetrius Cooper MD Work Phone: 1(395)[address] [place], [place] 7314104-09-2025 09:49-0400 Body yovvpz72.12 kgDemetrius Cooper MD Work Phone: 1(550)[address] [place], [place] 7314104-09-2025 09:49-0400 Diastolic blood tvginomz82 mm[Hg]Demetrius Cooper MD Work Phone: 1(192)[address] [place], [place] 7314104-09-2025 09:49-0400 Heart rate94 /Rosalba Cooper MD Work Phone: 1(591)[address] [place], [place] 7314104-09-2025 09:49-0400 Respiratory rate20 /Rosalba Cooper MD Work Phone: 1(493)[address] [place], [place] 7314104-09-2025 09:49-0400 SaO2% (BldA) [Mass fraction]98 %Demetrius Cooper MD Work Phone: 1(565)[address] [place], [place] 7314104-09-2025 09:49-0400 Systolic blood mm[Hg]Demetrius Cooper MD Work Phone: 1(875)[address] [place], [place] 7314104-07-2025 12:53-0400 Body eomliw737.64 cmSleno Cooper MD Work Phone: 1(314)[address] [place] 7314104-07-2025 11:36-0400 Body buqgiscoeea54 [degF]Demetrius Cooper MD Work Phone: 1(487)[address] [place] 7314104-07-2025 11:36-0400 Diastolic blood ryehjcqz59 mm[Hg]Demetrius Cooper MD Work Phone: 1(357)[address] [place], [place] 7314104-07-2025 11:36-0400 Heart rate76 /Rosalba Cooper MD Work Phone: 1(559)[address] [place], [place] 7314104-07-2025 11:36-0400 Respiratory rate18 /Rosalba Cooper MD Work Phone: 1(190)[address]04-07-2025 11:36-0400 SaO2% (BldA) [Mass fraction]96 %Demetrius Cooper MD Work Phone: 1(781)[address]04-07-2025 11:36-0400 Systolic blood mm[Hg]Demetrius Cooper MD Work Phone: 1(301)[address] [place], [place] 7314104-07-2025 04:13-0400 Body pcbqap44.9 kgDemetrius Cooper MD Work Phone: 1(656)[address] [place], [place] 7314104-06-2025 19:00-0400 Diastolic blood doakbths40 mm[Hg]Demetrius Cooper MD Work Phone: 1(738)[address] [place] 7314104-06-2025 19:00-0400 Heart rate61 /Rosalba Cooper MD Work Phone: 1(693)[address] [place], [place] 7314104-06-2025 19:00-0400 Respiratory rate18 /Rosalba Cooper MD Work Phone: 1(878)[address] [place] 7314104-06-2025 19:00-0400 SaO2% (BldA) [Mass fraction]92 %Demetrius Cooper MD Work Phone: 1(444)[address] [place] 7314104-06-2025 19:00-0400 Systolic blood oxipknzn579 mm[Hg]Demetrius Cooper MD Work Phone: 1(885)[address] [place], [place] 7314104-06-2025 18:04-0400 Body pvgybkalxfj07.1 [degF]Demetrius Cooper MD Work Phone: 1(627)[address] [place] 7314104-06-2025 16:57-0400 Body bwcnqo652.56 cmSleno Cooper MD Work Phone: 1(466)[address] [place], [place] 7314104-06-2025 16:57-0400 Body ffosss29.6 kgDemetrius Cooper MD Work Phone: 1(781)[address] [place], [place] 7314104-03-2025 08:23-0400 Body mmclaf016.64 Alexsandra Cooper MD Work Phone: 1(339)[address]04-03-2025 08:23-0400 Body vytxivvgwzf58.3 [degF]Demetrius Cooper MD Work Phone: 1(227)[address] [place], [place] 7314104-03-2025 08:23-0400 Body yecpdu29.25 kgDemetrius Cooper MD Work Phone: 1(173)[address] [place], [place] 7314104-03-2025 08:23-0400 Diastolic blood nllraijx43 mm[Hg]Demetrius Cooper MD Work Phone: 1(151)[address] [place], [place] 7314104-03-2025 08:23-0400 Heart rate90 /Rosalba Cooper MD Work Phone: 1(276)[address] [place], [place] 7314104-03-2025 08:23-0400 Respiratory rate18 /Rosalba Cooper MD Work Phone: 1(079)[address] [place], [place] 7314104-03-2025 08:23-0400 SaO2% (BldA) [Mass fraction]95 %Demetrius Cooper MD Work Phone: 1(839)[address] [place], [place] 7314104-03-2025 08:23-0400 Systolic blood pujcsgjs225 mm[Hg]Demetrius Cooper MD Work Phone: 1(108)[address] [place], [place] 7314104-02-2025 09:18-0400 Body rtibxg04.4 kgDemetrius Cooper MD Work Phone: 1(898)[address] [place], [place] 7314103-27-2025 15:40-0400 Body rnuazg482.64 Alexsandra Cooper MD Work Phone: 1(939)[address] [place] 7314103-27-2025 08:25-0400 Body ewqzetgddjd23.8 [degF]Demetrius Cooper MD Work Phone: 1(840)[address] [place], [place] 7314103-27-2025 08:25-0400 Diastolic blood awwmcjev56 mm[Hg]Demetrius Cooper MD Work Phone: 1(361)[address] [place], [place] 7314103-27-2025 08:25-0400 Heart rate68 /Rosalba Cooper MD Work Phone: 1(306)[address] [place], [place] 7314103-27-2025 08:25-0400 Respiratory rate18 /Rosalba Cooper MD Work Phone: 1(643)[address] [place], [place] 7314103-27-2025 08:25-0400 SaO2% (BldA) [Mass fraction]94 %Demetrius Cooper MD Work Phone: 1(166)[address] [place], [place] 7314103-27-2025 08:25-0400 Systolic blood aihvmkmr611 mm[Hg]Demetrius Cooper MD Work Phone: 1(581)[address] [place], [place] 7314103-26-2025 09:28-0400 Body .1 kgDemetrius Cooper MD Work Phone: 1(484)[address] [place], [place] 7314103-26-2025 09:16-0400 Body .1 kgDemetrius Cooper MD Work Phone: 1(685)[address] [place] 7314103-26-2025 09:16-0400 Diastolic blood oncxkrjl06 mm[Hg]Demetrius Cooper MD Work Phone: 1(422)[address] [place] 7314103-26-2025 09:16-0400 Heart rate77 /Rosalba Cooper MD Work Phone: 1(251)[address] [place], [place] 7314103-26-2025 09:16-0400 Respiratory rate18 /Rosalba Cooper MD Work Phone: 1(152)[address] [place] 7314103-26-2025 09:16-0400 SaO2% (BldA) [Mass fraction]97 %Demetrius Cooper MD Work Phone: 1(859)[address] [place] 7314103-26-2025 09:16-0400 Systolic blood daxnwfnv718 mm[Hg]Demetrius Cooper MD Work Phone: 1(569)[address] [place], [place] 7314103-20-2025 09:58-0400 Body mjlsab453.64 cmSleno Cooper MD Work Phone: 1(008)[address] [place] 7314103-20-2025 08:27-0400 Body svttnvpybnz26.9 [degF]Demetrius Cooper MD Work Phone: 1(107)[address] [place] 7314103-20-2025 08:27-0400 Diastolic blood yyoxzhoj72 mm[Hg]Demetrius Cooper MD Work Phone: 1(453)[address] [place] 7314103-20-2025 08:27-0400 Heart rate85 /Rosalba Cooper MD Work Phone: 1(419)[address] [place] 7314103-20-2025 08:27-0400 Respiratory rate18 /Rosalba Cooper MD Work Phone: 1(419)[address] [place] 7314103-20-2025 08:27-0400 SaO2% (BldA) [Mass fraction]95 %Demetrius Cooper MD Work Phone: 1(419)[address] [place], [place] 7314103-20-2025 08:27-0400 Systolic blood isevznik154 mm[Hg]Demetrius Cooper MD Work Phone: 1(419)[address] [place], [place] 7314103-14-2025 16:29-0400 Body .64 cmSleno Cooper MD Work Phone: 1(332)[address] [place], [place] 7314103-13-2025 08:28-0400 Body xzoazheljsx40.1 [degF]Demetrius Cooper MD Work Phone: 1(419)[address] [place], [place] 7314103-13-2025 08:28-0400 Body dvjzuz93.2 kgDemetrius Cooper MD Work Phone: 1(419)[address] [place], [place] 7314103-13-2025 08:28-0400 Diastolic blood mm[Hg]Demetrius Cooper MD Work Phone: 1(419)[address] [place], [place] 7314103-13-2025 08:28-0400 Heart rate62 /Rosalba Cooper MD Work Phone: 1(419)[address] [place] 7314103-13-2025 08:28-0400 Respiratory rate18 /Rosalba Cooper MD Work Phone: 1(419)[address] [place] 7314103-13-2025 08:28-0400 SaO2% (BldA) [Mass fraction]95 %Demetrius Cooper MD Work Phone: 1(419)[address] [place] 7314103-13-2025 08:28-0400 Systolic blood khoihxgn043 mm[Hg]Demetrius Cooper MD Work Phone: 1(767)[address] [place] 7314103-12-2025 08:23-0400 Body afkhmqgdzdb75.6 [degF]Demetrius Cooper MD Work Phone: 1(735)[address] [place] 7314103-12-2025 08:23-0400 Body ickzam78.48 kgDemetrius Cooper MD Work Phone: 1(940)[address] [place] 7314103-12-2025 08:23-0400 Diastolic blood uukixlto91 mm[Hg]Demetrius Cooper MD Work Phone: 1(202)[address] [place] 7314103-12-2025 08:23-0400 Heart rate64 /Rosalba Cooper MD Work Phone: 1(715)[address] [place], [place] 7314103-12-2025 08:23-0400 Respiratory rate20 /Rosalba Cooper MD Work Phone: 1(940)[address] [place] 7314103-12-2025 08:23-0400 SaO2% (BldA) [Mass fraction]96 %Demetrius Cooper MD Work Phone: 1(256)[address] [place] 7314103-12-2025 08:23-0400 Systolic blood orxenzfe536 mm[Hg]Demetrius Cooper MD Work Phone: 1(243)[address] [place], [place] 7314103-06-2025 10:18-0500 Body ghudmm37.38 kgDemetrius Cooper MD Work Phone: 1(505)[address] [place], [place] 7314103-06-2025 08:46-0500 Body hcnayphgsbl41.8 [degF]Demetrius Cooper MD Work Phone: 1(594)[address] [place] 7314103-06-2025 08:46-0500 Body ruqyvs99.84 kgDemetrius Cooper MD Work Phone: 1(926)[address] [place], [place] 7314103-06-2025 08:46-0500 Diastolic blood rkzhixbc79 mm[Hg]Demetrius Cooper MD Work Phone: 1(350)[address] [place] 7314103-06-2025 08:46-0500 Heart rate68 /Rosalba Cooper MD Work Phone: 1(419)[address]03-06-2025 08:46-0500 Respiratory rate20 /Rosalba Cooper MD Work Phone: 1(818)[address] [place] 7314103-06-2025 08:46-0500 SaO2% (BldA) [Mass fraction]97 %Demetrius Cooper MD Work Phone: 1(082)[address] [place] 7314103-06-2025 08:46-0500 Systolic blood brwxlvuw596 mm[Hg]Demetrius Cooper MD Work Phone: 1(993)[address] [place] 7314103-04-2025 08:50-0500 Body mjkgot125.64 cmSleno Cooper MD Work Phone: 1(937)[address] [place], [place] 7314103-03-2025 14:33-0500 Diastolic blood lyoyaile93 mm[Hg]Demetrius Cooper MD Work Phone: 1(043)[address] [place] 7314103-03-2025 14:33-0500 Heart rate59 /Rosalba Cooper MD Work Phone: 1(646)[address] [place] 7314103-03-2025 14:33-0500 Respiratory rate16 /Rosalba Cooper MD Work Phone: 1(689)[address] [place] 7314103-03-2025 14:33-0500 SaO2% (BldA) [Mass fraction]96 %Demetrius Cooper MD Work Phone: 1(018)[address] [place] 7314103-03-2025 14:33-0500 Systolic blood yuezdawh928 mm[Hg]Demetrius Cooper MD Work Phone: 1(053)[address] [place] 7314103-03-2025 13:48-0500 Body dqrakfwbids63.3 [degF]Demetrius Cooper MD Work Phone: 1(671)[address] [place] 7314103-03-2025 10:40-0500 Body uwohar795.1 cmSleno Cooper MD Work Phone: 1(973)[address] [place] 7314103-03-2025 10:40-0500 Body lefmep63.11 kgDemetrius Cooper MD Work Phone: 1(281)[address] [place] 7314102-27-2025 16:08-0500 Body qugxkk094.64 cmSleno Cooper MD Work Phone: 1(746)[address] [place] 7314102-27-2025 08:37-0500 Body adibzrrhfqr43.8 [degF]Demetrius Cooper MD Work Phone: 1(412)[address] [place] 7314102-27-2025 08:37-0500 Body .01 kgDemetrius Cooper MD Work Phone: 1(518)[address] [place] 7314102-27-2025 08:37-0500 Diastolic blood sjguguab92 mm[Hg]Demetrius Cooper MD Work Phone: 1(424)[address] [place] 7314102-27-2025 08:37-0500 Heart rate64 /Rosalba Cooper MD Work Phone: 1(223)[address] [place] 7314102-27-2025 08:37-0500 Respiratory rate18 /Rosalba Cooper MD Work Phone: 1(441)[address] [place], [place] 7314102-27-2025 08:37-0500 SaO2% (BldA) [Mass fraction]95 %Demetrius Cooper MD Work Phone: 1(040)[address] [place] 7314102-27-2025 08:37-0500 Systolic blood mmhzmjco048 mm[Hg]Demetrius Cooper MD Work Phone: 1(385)[address] [place] 7314102-26-2025 08:41-0500 Body .3 [degF]Demetrius Cooper MD Work Phone: 1(503)[address] [place] 7314102-26-2025 08:41-0500 Body bndriu08.65 kgDemetrius Cooper MD Work Phone: 1(938)[address] [place] 7314102-26-2025 08:41-0500 Diastolic blood cegsfnkn18 mm[Hg]Demetrius Cooper MD Work Phone: 1(892)[address] [place] 7314[place]-26-2025 08:41-0500 Heart rate61 /Rosalba Cooper MD Work Phone: 1(534)[address] [place] 7314[place]-26-2025 08:41-0500 Respiratory rate20 /minSamuel Ross MD Work Phone: 1(042)[address] [place] 7314102-26-2025 08:41-0500 SaO2% (BldA) [Mass fraction]96 %Demetrius Cooper MD Work Phone: 1(228)[address] [place] 7314[place]-26-2025 08:41-0500 Systolic blood lkooxgeo770 mm[Hg]Demetrius Cooper MD Work Phone: 1(445)[address] [place], [place] 7314102-20-2025 11:06-0500 Body oowhyv029.64 cmSleno Cooper MD Work Phone: 1(493)[address] [place] 7314102-20-2025 08:36-0500 Body lixbkeyeuwr86.6 [degF]Demetrius Cooper MD Work Phone: 1(710)[address] [place] 7314102-20-2025 08:36-0500 Body estojx18.83 kgDemetrius Cooper MD Work Phone: 1(266)[address] [place] 7314102-20-2025 08:36-0500 Diastolic blood eurrueev04 mm[Hg]Demetrius Cooper MD Work Phone: 1(591)[address] [place] 7314102-20-2025 08:36-0500 Heart rate63 /Rosalba Cooper MD Work Phone: 1(828)[address] [place] 7314102-20-2025 08:36-0500 Respiratory rate18 /Rosalba Cooper MD Work Phone: 1(030)[address] [place] 7314102-20-2025 08:36-0500 SaO2% (BldA) [Mass fraction]95 %Demetrius Cooper MD Work Phone: 1(355)[address] [place] 7314102-20-2025 08:36-0500 Systolic blood irtlcjgx055 mm[Hg]Demetrius Cooper MD Work Phone: 1(976)[address] [place] 7314102-06-2025 14:58-0500 Body lxiigt770.56 cmSleno Cooper MD Work Phone: 1(787)[address] [place] 7314102-06-2025 14:58-0500 Body bbputbkityu20.5 [degF]Demetrius Cooper MD Work Phone: [facility]02-06-2025 14:58-0500 Body kgDemetrius Cooper MD Work Phone: 1(516)460-[address] [place], [place] 7857202-06-2025 14:58-0500 Diastolic blood alfhdwha26 mm[Hg]Demetrius Cooper MD Work Phone: 1(671)[address]02-06-2025 14:58-0500 Heart rate50 /Rosalba Cooper MD Work Phone: 1(962)138-[address] [place], [place] 7857202-06-2025 14:58-0500 Respiratory rate20 /Rosalba Cooper MD Work Phone: 1(458)[address]02-06-2025 14:58-0500 SaO2% (BldA) [Mass fraction]95 %Demetrius Cooper MD Work Phone: 1(986)[address]02-06-2025 14:58-0500 Systolic blood trzqokut161 mm[Hg]Demetrius Cooper MD Work Phone: 1(050)347-[address] [place], [place] 7857202-04-2025 14:38-0500 Body ftodnf804 cmAlrenny Bell MD Work Phone: [facility]wuyuwpfsf[facility] 14:38-0500Body mass index (BMI) [Ratio]30.11 kg/e3GhxauvMatteo Bell MD Work Phone: [facility] CampusSxtfupcvxq13-44-2654 14:38-0500Body ibvgfd69.11 kgMatteo Bell MD Work Phone: [facility] CampusVtdnksmkri52-84-0565 14:38-0500Diastolic blood ibdnqoia23 mm[Hg]Matteo Bell MD Work Phone: [facility] CampusFiqnnshccq27-45-5547 14:38-0500Systolic blood rgyzcdcf410 mm[Hg]Matteo Bell MD Work Phone: [facility] CampusZijkuxvadp36-83-4328 10:45-0500Body wcospr558.64 cmSleno Cooper MD Work Phone: 1(030)[address]01-29-2025 10:45-0500 Body mass index (BMI) [Ratio]27.6 kg/s2CkwotgDemetrius Cooper MD Work Phone: 1(953)[address] [place], [place] 7314101-29-2025 10:45-0500 Body pwjwclxeaks80.6 [degF]Demetrius Cooper MD Work Phone: 1(232)[address] [place], [place] 7314101-29-2025 10:45-0500 Body .56 kgDemetrius Cooper MD Work Phone: 1(035)[address] [place], [place] 7314101-29-2025 10:45-0500 Diastolic blood mm[Hg]Demetrius Cooper MD Work Phone: 1(045)[address] [place], [place] 7314101-29-2025 10:45-0500 Heart rate69 /Rosalba Cooper MD Work Phone: 1(371)[address] [place] 7314101-29-2025 10:45-0500 Respiratory rate20 /Rosalba Cooper MD Work Phone: 1(930)[address] [place], [place] 7314101-29-2025 10:45-0500 Systolic blood mbkliege514 mm[Hg]Demetrius Cooper MD Work Phone: 1(880)[address] [place], [place] 7314101-29-2025 09:53-0500 Body ievlov746.64 cmSleno Cooper MD Work Phone: 1(775)[address] [place] 7314101-29-2025 09:53-0500 Body mass index (BMI) [Ratio]27.6 kg/n8RbpghwDemetrius Cooper MD Work Phone: 1(560)[address] [place] 7314101-29-2025 09:53-0500 Body hosxswuwwbe80.6 [degF]Demetrius Cooper MD Work Phone: 1(773)[address] [place], [place] 7314101-29-2025 09:53-0500 Body blkgda34.56 kgDemetrius Cooper MD Work Phone: 1(699)[address] [place], [place] 7314101-29-2025 09:53-0500 Diastolic blood lrdoqkwd88 mm[Hg]Demetrius Cooper MD Work Phone: [facility]01-29-2025 09:53-0500 Heart rate69 /Rosalba Cooper MD Work Phone: [facility]01-29-2025 09:53-0500 Respiratory rate20 /Rosalba Cooper MD Work Phone: [facility]01-29-2025 09:53-0500 SaO2% (BldA) [Mass fraction]96 %Demetrius Cooper MD Work Phone: [facility]01-29-2025 09:53-0500 Systolic blood mm[Hg]Demetrius Cooper MD Work Phone: [facility]01-20-2025 14:13-0500 Diastolic blood tzoqmqsq51 mm[Hg][address] 06-05-2024 14:13-0500Heart rate65 /[facility] [address] [place] [address] 06-05-2024 14:13-0500Respiratory rate16 /[facility] [address] [place], [place] 8570501-20-2025 14:13-3639KtY0% (BldA) [Mass fraction]96 %[address]01-20-2025 14:13-0500Systolic blood dkqadesf466 mm[Hg][address]01-20-2025 12:22-0500Body kixcgansjgy89.2 [degF][address]01-14-2025 11:16-0500Body height 162.6 cmMary Schneider MD Work Phone: [facility]01-14-2025 11:16-0500 Body mass index (BMI) [Ratio]28.89 kg/w1DohadofMary Schneider MD Work Phone: [facility]01-14-2025 11:16-0500 Body injqwsgkgdy65.2 [degF]Mary Schneider MD Work Phone: [facility]01-14-2025 11:16-0500 Body bbzizk60.34 kgMary Schneider MD Work Phone: [facility]12-26-2024 10:00-0500 Body mzdjgxxneuq36.7 [degF]Mary Schneider MD Work Phone: [facility]12-26-2024 10:00-0500 Diastolic blood qpbqynud21 mm[Hg]Mary Schneider MD Work Phone: [facility]12-26-2024 10:00-0500 Heart rate61 /Guerda Schneider MD Work Phone: 1(350)889-03[facility]12-26-2024 10:00-0500 Respiratory rate14 /Guerda Schneider MD Work Phone: [facility]12-26-2024 10:00-0500 SaO2% (BldA) [Mass fraction]95 %Mary Schneider MD Work Phone: [facility]12-26-2024 10:00-0500 Systolic blood nnlorxdo524 mm[Hg]Mary Schneider MD Work Phone: [facility]12-26-2024 06:08-0500 Body jpifwt304.6 cmMary Schneider MD Work Phone: [facility]12-26-2024 06:08-0500 Body mass index (BMI) [Ratio]29.52 kg/k8PanytioMary Schneider MD Work Phone: [facility]12-26-2024 06:08-0500 Body knlnto83 kgMary Schneider MD Work Phone: [facility]11-22-2024 10:40-0500 Body ikuqlq881.6 cmMary Schneider MD Work Phone: [facility]11-22-2024 10:40-0500 Body mass index (BMI) [Ratio]29.18 kg/q2XagenpwMary Schneider MD Work Phone: [facility]11-22-2024 10:40-0500 Body bhzksa10.11 kgMary Schneider MD Work Phone: [facility]11-13-2024 10:06-0500 Body zkrfax153.6 cmLuc Ham MD Work Phone: [place] [address]Lxybacnyds62-74-7794 10:06-0500Body mass index (BMI) [Ratio]29.7 kg/t5ZgsqtoLuc Ham MD Work Phone: 1([phone] [address]Wnurrvnjwk48-00-6042 10:06-0500Body xmiilg80.47 kgLuc Ham MD Work Phone: [place] [address]Dnzhmpevnz04-36-4449 10:06-0500Diastolic blood ydsuffjd45 mm[Hg]Luc Ham MD Work Phone: [place] [address]Qsfcyalfeb00-44-8201 10:06-0500Systolic blood ngldsuvh326 mm[Hg]Luc Ham MD Work Phone: [place] [address]Qlwhdbjmnd80-59-8721 14:06-0500Blood Pressure LocationMuhammad Sarmini [phone]-[facility]11-07-2024 14:06-0500Diastolic blood usdmquzv25 mm[Hg]Wiley Sarmini [phone]-VuywoShelby [facility]11-07-2024 14:06-0500Heart rate71 /minMuhammad Sarmini [phone]-QtetsShelby Memorial Hospital11-07-2024 14:06-0500Respiratory rate16 /minMuhammad Sarmini [phone]-KbtyrShelby Memorial Hospital11-07-2024 14:06-0500Systolic blood xaybacvz725 mm[Hg]Wiley Sarmini [phone]-Afeij[address] [place], [place] 8530510-23-2024 09:25-0400Body exophd482.6 cmLuc Ham MD Work Phone: 1(226)[address] [place], [place] 5205410-23-2024 09:25-0400Body mass index (BMI) [Ratio]29.87 kg/z9PfghdeLuc Ham MD Work Phone: 1(960)[address] [place], [place] 5205410-23-2024 09:25-0400Body .93 kgLuc Ham MD Work Phone: 1(970)[address] [place], [place] 5205410-23-2024 09:25-0400Diastolic blood wbismkld36 mm[Hg]Luc Ham MD Work Phone: 1(675)[address] [place], [place] 5205410-23-2024 09:25-0400Systolic blood qnghzuns026 mm[Hg]Luc Ham MD Work Phone: 1(634)[address] [place], [place] 5205410-02-2024 14:19-0400Body pvhnto805.6 cmLuc Ham MD Work Phone: 1(616)[address] [place], [place] 5205410-02-2024 14:19-0400Body mass index (BMI) [Ratio]29.87 kg/t7LlfhbwLuc Ham MD Work Phone: 1(035)[facility] [place], [place] [id number] 14:19-0400Body vyeesl37.93 kgLuc Ham MD Work Phone: 1(426)[address] [place], [place] [address]5410-02-2024 14:19-0400Diastolic blood mm[Hg]Luc Ham MD Work Phone: 1(813)[address] [place] [address]-02-2024 14:19-0400Systolic blood pedtwect576 mm[Hg]Luc Ham MD Work Phone: 1(432)[address] [place] [address]-02-2024 08:59-0400Body lyldcm417.6 cmAngela Lowe PA Work Phone: [facility] [phone] 08:59-0400Body mass index (BMI) [Ratio]29.7 kg/u1Klpwyc Lowe PA Work Phone: [facility] [phone] 08:59-0400Body izbaoi72.47 kgAngela Lowe PA Work Phone: [place] [phone] 08:59-0400Diastolic blood dhayqxnm40 mm[Hg]Missy Lowe PA Work Phone: [place] [id number] 08:59-0400Systolic blood yqnkczxs238 mm[Hg]Missy Lowe PA Work Phone: [place] [id number] 13:07-0400Body geumfc261.6 cmLuc Ham MD Work Phone: [facility] [phone] 13:07-0400Body mass index (BMI) [Ratio]29.52 kg/e6JjvkxyLuc Ham MD Work Phone: [facility] [phone] 13:07-0400Body gvzhno91.02 kgLuc Ham MD Work Phone: [place] [phone] 13:07-0400Diastolic blood bsukgjri02 mm[Hg]Luc Ham MD Work Phone: [place] [phone] 13:07-0400Systolic blood tgnxdjum762 mm[Hg]Luc Ham MD Work Phone: [facility] [phone] 14:32-0400Blood Pressure LocationMuhammad Sarmini [phone]-[facility]umS[facility]06-06-2024 14:32-0400Diastolic blood ssgdcomb23 mm[Hg]Wiley Sarmini [phone]-WdibsShelby [facility] Hospital06-06-2024 14:32-0400Heart rate73 /minMuhammad Sarmini [phone]-AkmsbShelby Memorial Hospital06-06-2024 14:32-0400Respiratory rate18 /minMuhammad Sarmini [phone]-IylwqShelby Memorial Hospital06-06-2024 14:32-0400Systolic blood kmjnlrok260 mm[Hg]Inez Henderson [phone]-EfwotShelby Memorial Hospital05-03-2024 08:58-0400Blood Pressure LocationAnjali Ruby 043-1255Tfbpgo-XrmcsShelby Memorial Hospital05-03-2024 08:58-0400Body faadcxghsyb87.34 [degF]Anjali Ruby [phone]-KseulShelby Memorial Hospital05-03-2024 08:58-0400Diastolic blood ujcrdzbx65 mm[Hg]Anjali Ruby [phone]-YkymyShelby Memorial Hospital05-03-2024 08:58-0400Heart rate66 /Norman Ruby [phone]-DtzoxShelby Memorial Hospital05-03-2024 08:58-0400Systolic blood mm[Hg]Anjali Ruby [phone]-CyusvShelby Memorial Hospital04-18-2024 13:28-0400Body jbrjyj599.64 [facility]04-18-2024 13:28-0400Body mass index (BMI) [Ratio]28 kg/g8SmlsytjrvLakehealth [facility] 09-02-2023 13:28-0400Body qjohps21.69 kgLake[facility] 09-02-2023 13:28-0400Diastolic blood dpkfpoib84 mm[Hg][facility]04-18-2024 13:28-0400Heart rate67 /minL[facility] 09-02-2023 13:28-3045QtB1% (BldA) [Mass fraction]95 %[facility]04-18-2024 13:28-0400Systolic blood ubgazckv504 mm[Hg][facility]03-12-2024 10:23-0400Body wbqase465.64 cmLake[facility]03-12-2024 10:23-0400Body mass index (BMI) [Ratio]27.5 kg/m2 [facility]03-12-2024 10:23-0400Body xkfvyypylkv92.9 [degF][facility]03-12-2024 10:-0400Body .28 kg [facility]03-12-2024 10:23-0400Diastolic blood hsrvuyow33 mm[Hg][facility]03-12-2024 10:23-0400Heart rate86 /min [facility]03-12-2024 10:-0400Respiratory rate18 /min [facility]03-12-2024 10:23-1312OoX3% (BldA) [Mass fraction]97 %[facility]03-12-2024 10:23-0400Systolic blood xagyeomp179 mm[Hg][facility]01-15-2024 13:30-0500 Body quopqg867.64 cmPeggy Brunson Other [employer] Other 01-15-2024 13:30-0500Body mass index (BMI) [Ratio]27.6 kg/z8CxviyGisele Brunson Other [employer] Other 01-15-2024 13:30-0500Body lvolkb56.57 kgPeggy Boy Other [employer] Other 01-15-2024 13:30-0500Diastolic blood onjmfcev07 mm[Hg] Gisele Brunson Other [employer] Other 01-15-2024 13:30-1181WhV6% (BldA) [Mass fraction]94 % Gisele Brunson Other [employer] Other 01-15-2024 13:30-0500Systolic blood vebbclky712 mm[Hg] Gisele Brunson Other [employer] Other [id number] 12:21-0500Blood Pressure LocationBeth Flori [phone]-NulmmShelby [facility] Hospital01-09-2024 12:21-0500Diastolic blood eobbxzqv16 mm[Hg]Anjali Ruby 335-4588Pbbyul-JccfaShelby Memorial Hospital01-09-2024 12:21-0500Heart rate88 /minBeth Flori [phone]-IqbczShelby Memorial Hospital01-09-2024 12:21-0500Respiratory rate16 /minBeth Flori 710-0417Odwolp-QqfscShelby Memorial Hospital01-09-2024 12:21-0500Systolic blood wklsijji024 mm[Hg]Anjali Ruby 701-1815Dltwnt-IiegeShelby Memorial Hospital11-16-2023 13:15-0500Body .11 [degF]Vaishali Pringle MD Work Phone: [facility]11-16-2023 13:15-0500Body rleegn65.75 kgKingstonms Pino CASON Work Phone: [facility]11-16-2023 13:15-0500Diastolic blood ntesndyf14 mm[Hg]Vaishali Pringle MD Work Phone: [facility]11-16-2023 13:15-0500Heart rate70 /min Vaishali Pringle MD Work Phone: [facility]11-16-2023 13:15-6146FeX3% (BldA) [Mass fraction]97 %Vaishali Pringle MD Work Phone: [facility]11-16-2023 13:15-0500Systolic blood dhnlsunx075 mm[Hg]Vaishali Pringle MD Work Phone: [facility]10-25-2023 08:53-0400Blood Pressure LocationBeth Flori [phone]-Urjhr[address] [place], [place] 5533310-25-2023 08:53-0400Body fetnzjvwltf84.16 [degF]Anjali Staffordmetz [phone]-Nllfx[address] [place], [place] 5533310-25-2023 08:53-0400Diastolic blood pfbfpftu19 mm[Hg]Anjali Staffordmetz 107-9054Nokklr-Ogwha[address] [place], [place] 5533310-25-2023 08:53-0400Heart rate63 /minBeth Flori 512-4966Pppaxb-Jdzqi[address] [place], [place] 5533310-25-2023 08:53-0400Systolic blood liwvlzlp167 mm[Hg]Anjali Ruby 972-5251Ifigim-Wxyzs[address] [place], [place] 5533310-12-2023 13:27-0400Blood Pressure LocationBeth Flori 336-6170Lrhaqw-Hkrws[address] [place], [place] 5533310-12-2023 13:27-0400Body rwvorjayhht24.06 [degF]Anjali Ruby [phone]-Qxooa[address] [place], [place] 5533310-12-2023 13:27-0400Diastolic blood rajetcut63 mm[Hg]Anjali Ruby [phone]-Oquyv[address] [place], [place] 5533310-12-2023 13:27-0400Heart rate85 /minBeth Flori 868-1490Wxwkrk-Xlblr[address] [place], [place] 5533310-12-2023 13:27-0400Respiratory rate16 /minBeth Flori 486-7378Djzbtm-Tmolx[address] [place], [place] 5533310-12-2023 13:27-0400Systolic blood olsczrzw956 mm[Hg]Anjali Staffordmetz [phone]-Euynq[address] [place] [address]-15-2023 10:15-0400Body qthlyg786.64 cmPegjennyfer Brunson Other [employer] Other 09-15-2023 10:15-0400Body mass index (BMI) [Ratio] 28.24 kg/f1Nxoaeflores Brunson Other [employer] Other 09-15-2023 10:15-0400Body .38 kgPeflores Brunson Other [employer] Other 09-15-2023 10:15-0400Diastolic blood mfpmmwed63 mm[Hg] Gisele Brunson Other [employer] Other 09-15-2023 10:15-9436SyH4% (BldA) [Mass fraction]95 % Gisele Brunson Other [employer] Other 09-15-2023 10:15-0400Systolic blood yttkvpcw134 mm[Hg] Gisele Brunson Other [employer] Other 08-29-2023 09:22-0400Blood Pressure LocationBeth Flori [phone]-UcfqtShelby Memorial Hospital08-29-2023 09:22-0400Body oxfzogbxfve21.98 [degF]Anjali Ruby [phone]-LqxfuShelby Memorial Hospital08-29-2023 09:22-0400Diastolic blood mm[Hg]Anjali Ruby 091-1339Mjhmdx-GfagaShelby Memorial Hospital08-29-2023 09:22-0400Heart rate69 /minBeth Flori 691-5541Zedmvh-BjauoShelby Memorial Hospital08-29-2023 09:22-0400Systolic blood yibxtixi776 mm[Hg]Anjali Ruby 698-9108Zbytcn-GmoevMercy [facility] Eboomu76-08-1063 09:45-0400Body ouoxxn312.64 cmPegjennyfer Brunson Other [employer] Other 05-30-2023 09:45-0400Body mass index (BMI) [Ratio] 27.92 kg/w0Oooogflores Brunson Other [employer] Other 05-30-2023 09:45-0400Body ovqjnu04.47 kgPeflores Brunson Other [employer] Other [id number] 09:45-0400Diastolic blood nysfzrwl59 mm[Hg] Giselejennyfer Brunson Other [employer] Other 05-30-2023 09:45-7714PvV4% (BldA) [Mass fraction]95 % Giselejennyfer Brunson Other [employer] Other 05-30-2023 09:45-0400Systolic blood cgxmyxld192 mm[Hg] Giselejennyfer Brunson Other [employer] Other [phone] 18:14-0400Body faspxwsbgzu14.86 [degF]Gordy Sánchez [facility]05-09-2023 16:28-0400Body cfzxqfyahpq122.3 [degF]Gordy Sánchez [facility]05-09-2023 16:28-0400 Diastolic blood dxbpbbob91 mm[Hg]Gordy Sánchez [facility]05-09-2023 16:28-0400Heart rate79 /minGordy Sánchez [facility]05-09-2023 16:28-0400 Respiratory rate17 /minGordy Sánchez [facility]05-09-2023 16:28-1369AwL0% (BldA) [Mass fraction]93 %Gordy Sánchez [facility]05-09-2023 16:28-0400 Systolic blood xbanbdyy016 mm[Hg]Gordy Sánchez [facility]05-09-2023 14:10-0400Body .64 cmPamela Aditi Other [facility] [employer] Other 05-09-2023 14:10-0400Body mass index (BMI) [Ratio]29.7 kg/x7Jvozff Aditi Other [employer] Other 05-09-2023 14:10-0400Body fcxqpyxvtuk761 [degF]Griselda Aditi Other [employer] Other 05-09-2023 14:10-0400Body .46 kgGriselda Pennington Other [employer] Other 05-09-2023 14:10-0400Respiratory rate18 /minGriselda Pennington Other [employer] Other 05-09-2023 14:10-3791XtN4% (BldA) [Mass fraction]93 % Griselda Aditi Other [employer] Other 03-15-2023 10:15-0400Body .64 cmErwin Salazar Other [employer] Other 03-15-2023 10:15-0400Body mass index (BMI) [Ratio] 30.02 kg/t8VodisErwin Salazar Other [employer] Other 03-15-2023 10:15-0400Body nkwqmy74.37 kgDawon Salazar Other [employer] Other 03-15-2023 10:15-0400Diastolic blood ikrxuydd00 mm[Hg] Erwin Salazar Other [employer] Other 03-15-2023 10:15-4410JmF9% (BldA) [Mass fraction]94 % Erwin Salazar Other [employer] Other 03-15-2023 10:15-0400Systolic blood mm[Hg] Erwin Salazar Other [employer] Other 07-16-2022 10:25-0400Body deknqy679.64 cmStepmichaelle Garcia Other [employer] Other 07-16-2022 10:25-0400Body .9 [degF] Leti Garcia Other [employer] Other 07-16-2022 10:25-0400Respiratory rate18 /minSjorge Garcia Other [employer] Other 07-16-2022 10:25-6681PxH4% (BldA) [Mass fraction]93 % Leti Garcia Other [employer] Other Encounters Encounter DateEncounter TypeCare ProviderFacilityStart: 03-08-2025 End: 59-11-2540obgspctukoDptksx E Ross MD Work Phone: [phone]-Frisfmjlf Health GastroStart: 03-08-2025 End: 41-69-7024Lqqrcom encounter procedureChang Russell MD-[facility] Work Phone: Start: 37-78-4804Jhjamagejr Recurringrick Hargrove MD-[facility] Acute Work Phone: Start: 70-59-1708rzmevxpfmsRrpiwh E Ross [facility]: 02-43-3242Qnvjynnase Recurring rick Faustin MD-[facility] Acute Work Phone: Start: 02-22-2025 End: 45-70-5632dtkzxohpmoBuxnlv E Ross MD Work Phone: [facility] Work Phone: Start: 02-22-2025 End: 13-76-2231Sprvgsg encounter procedureBecky Crouch APRN-[facility] Amb[facility] Work Phone: Start: 63-28-6365mxetmfzhcqFGZMDWilson Memorial Hospitaltart: 02-06-2025 End: 32-26-5539vmpigiejftWAON [facility]: 01-18-2025 End: 37-31-5697Zgcrbq outpatient visit 15 minutesFredric H Itzkowitz DO Work Phone: [facility] Surgical AssociatesComment on above:Esophageal dysphagia (Primary Dx)Start: 01-18-2025 End: 42-56-1217nfdhcxmfxoSZGXIDJ H ITZKOWITZNot AvailableStart: 01-08-2025 End: 60-63-6608Lgfyfg outpatient visit 15 minutesFredric H Itzkowitz DO Work Phone: [facility] Surgical AssociatesComment on above:Esophageal dysphagia (Primary Dx); Carcinoma of oropharynx (HCC)Start: 01-08-2025 End: 55-64-8174obdrxmzqscMQNKGVF Jane Alfonso AvailableStart: 12-26-2024 Registered Suha Faustin MDRe[facility] Work Phone: Start: 12-26-2024 End: 20-72-2290ylzyrrdnajJymkwr E Ross MD Work Phone: [facility] Work Phone: Start: 12-26-2024 End: 52-51-2715Iydbenw encounter procedureAfshanshi Kearnsvicki TABARES-[facility] Work Phone: Start: 37-29-7787ikexhfezulCHZJBarnesville Hospitaltart: 12-11-2024 End: 51-38-9547Htdxme outpatient visit 15 minutesMary Schneider MD Work Phone: [facility] Health CenterComment on above: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 RossFacility:FT [facility] BellevueStart: 11-23-2024 Registered Suha Faustin MDRe[facility]ob[facility] Work Phone: Start: 11-23-2024 End: 68-73-2519xyhpogtuqaVmvvaw E Ross MD Work Phone: [facility] Work Phone: Start: 11-23-2024 End: 73-23-7334Mrgckqy encounter procedurerick Faustin MD-[facility] Work Phone: start: 11-23-2024 End: 52-62-3970Swarkpw encounter procedureKatflori Campbell [facility] Palliat CareStart: 11-23-2024 End: 82-95-6611mqdylbmpnwEsfaqc E Ross MD Work Phone: [facility] Work Phone: Start: 20-41-8906Ytx-patient / Non-visitDebora Molinaraw Adrian [facility] Palliative Work Phone: Start: 11-21-2024 End: 50-68-2602cfmxntvnoeIcepgv E. RossFacility:[facility] BellevueStart: 2024 End: 57-75-8753vwwfdnzvqmVHHumza CooperFacility:[facility] BellevueStart: 10-12-2024 End: 68-10-7688zcmeyxvancVBHumza CooperFacility:[facility] BellevueStart: 10-11-2024 End: 27-41-6744Illxvt follow up visit related to original pxFredric H Itzkowitz DO Work Phone: [facility]oms [facility] GENSComment on above:Esophageal dysphagia (Primary Dx); Carcinoma of oropharynx (CMS/HCC)Start: 10-11-2024 End: 88-80-5866wkqppvxtnjMYQPBDZ H ITZKOWITZNot AvailableStart: 10-03-2024 End: 80-99-3932Caigoiwl Result EncounterFredric H Itzkowitz DO Work Phone: noms External Department UnsolicitedStart: 10-03-2024 End: 47-95-4663Izclicnk Result EncounterFredric H Itzkowitz DO Work Phone: noms External Department UnsolicitedStart: 10-03-2024 End: 88-39-3927Qxbczbole to same day surgery centerFredric Itzkowitz DO-[facility]Start: 10-03-2024 End: 88-76-0759vqfpetawryVtdzvlm ItzkowitzFacility:[facility]tart: 09-28-2024 End: 93-71-7669yauixldnzmXH Demetrius CooperFacility:[facility] tart: 09-28-2024 End: 14-90-9460Gaenvi flowsheetAngela Lowe PA Work Phone: ana BELLEVUEStart: 09-28-2024 End: 21-16-6060Astflo flowsheetAngela Lowe PA Work Phone: aNA BELLEVUEStart: 09-28-2024 End: 95-48-3642Rtoxcw outpatient visit 15 minutesAngela Lowe PA Work Phone: ana BELLEVUEComment on above:Vertigo (Primary Dx); Lumbar radiculopathy; Chronic bilateral low back pain, unspecified whether sciatica present; Degenerative disc disease, cervical; Migraine without aura and without status migrainosus, not intractable (CMS/HCC); PolyneuropathyStart: 09-28-2024 End: 64-07-0070pwuuirzbpyXLFTTH LOWENot AvailableStart: 09-27-2024 End: 17-23-8447Jrwwnm outpatient new 45 minutesFredric H Itzkowitz DO Work Phone: noms ST GENSComment on above:Esophageal dysphagia (Primary Dx)Start: 09-27-2024 End: 09-59-4597ceiijrmfcrFRQYGUS H ITZKOWITZNot AvailableStart: 09-26-2024 End: 44-77-3041izeymlnwboKdoexk E Ross MD Work Phone: [facility] Work Phone: Start: 09-26-2024 End: 26-55-6176Dmfpzpv encounter procedureSleno Cooper MD Work Phone: [facility] Palliative Work Phone: Start: 20-81-6963Yzxrafbmdb Philly Cooper MD Work Phone: [facility] Acute Work Phone: Start: 09-20-2024 End: 30-51-0811Evfkhnblc department patient visitSleno Cooper MD Work Phone: [facility]-Emergency Room Work Phone: Start: 09-14-2024 End: 54-67-9234mfsvmzhvlkXH Demetrius CooperFacility:FT [place]vueStart: 09-11-2024 End: 36-03-0812Xhuccq outpatient visit 15 minutesMaroxy Schneider MD Work Phone: [facility] Health CenterComment on above: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); Dysphagia, unspecified typeStart: 09-11-2024 End: 85-36-9218tzocfgbajlTIEZXXK N [facility]tart: 09-11-2024 End: 53-86-4290Fqcmptq encounter procedureSleno Cooper MD Work Phone: [facility] Work Phone: Start: 85-16-0126Ncsolbeqte RecurringDemetrius Cooper MD Work Phone: [facility] Acute Work Phone: Start: 09-07-2024 End: 47-15-9842Idnnqlj encounter procedureSleno Cooper MD Work Phone: [facility] Work Phone: Start: 09-04-2024 End: 57-38-0350dksbgijqmvXONM [facility]art: 08-30-2024 End: 88-94-8837Bdt Drop offSleno Cooper [facility] Start: 08-30-2024 End: 06-61-1808fowjxvagckPjsuqy E. RossFacility:FTMCStart: 08-24-2024 End: 77-71-1559wnzsdnoyavTdsimv E. RossFacility:[facility] [place]vueStart: 08-23-2024 End: 70-84-0449Qppcajv encounter procedureSleno Cooper MD Work Phone: [facility] Work Phone: Start: 08-22-2024 End: 71-96-0936diuyvpkeagAzjowa E. RossFacility:CD:[id number]: 08-21-2024 Non-patient / Non-visitSleno Cooper MD Work Phone: [facility] Work Phone: Start: 21-33-1846Omf-patient / Non-visitSleno Cooper MD Work Phone: [facility] Infect Dis Work Phone: Start: 05-39-6477aigwrxndgjYxtcytwbc M McGraw Facility:[facility]: 08-20-2024 End: 68-43-3350Tfxcmznqdt and management of inpatientSleno Cooper MD Work Phone: [facility] Work Phone: Start: 75-58-8785Dlsiibbwmh RecurringDemetrius Cooper MD Work Phone: [facility] Work Phone: Start: 18-39-4712Gtc-patient / Non-visitSleno Cooper MD Work Phone: [facility] Work Phone: Start: 59-48-6624pyceslleeiDlnlbpor R Poynter Facility:[facility]art: 03-04-1000Lfpcqtqtpe Recurring Demetrius Cooper MD Work Phone: [facility]-Speech Therapy Cancer CenterStart: 33-86-9421Wdk-patient / Non-visitSleno Cooper MD Work Phone: [facility] Work Phone: Start: 11-98-3251Qxjsqboyqo Philly Cooper MD Work Phone: [facility] Work Phone: Start: 08-16-2024 End: 68-09-5043Bgokrxx encounter procedureSleno Cooper MD Work Phone: [facility] CareStart: 08-16-2024 End: 22-66-5919qpaxjeoijfPdynaw E Ross MD Work Phone: [facility] Work Phone: Start: 64-93-2500Dot-patient / Non-visitSleno Cooper MD Work Phone: [facility] Phys[facility]-Heart Rhythm ClinicStart: 37-87-2406Zvf-patient / Non-visitSleno Cooper MD Work Phone: [phone] Work Phone: Start: 63-37-2357Rxjskxdywl Philly Cooper MD Work Phone: [facility]-Speech Therapy Cancer CenterStart: 08-09-2024 End: 08-41-3910Hpuzjuk encounter procedureSleno Cooper MD Work Phone: [facility] Work Phone: Start: 79-01-9980Mut-patient / Non-visitSleno Cooper MD Work Phone: [facility] Physician [facility] Palliative Work Phone: Start: 08-09-2024 End: 59-55-1545Mzdajmw encounter procedureSleno Cooper MD Work Phone: [facility] CareStart: 08-09-2024 End: 54-37-7469buwipieckhTfwcqv E Ross MD Work Phone: [place] [address] Work Phone: Start: 98-39-8892Xnl-patient / Non-visitSleno Cooper MD Work Phone: [facility] Work Phone: Start: 04-79-6196Yvukiwfvrh Philly Cooper MD Work Phone: [phone]-Speech Therapy Cancer CenterStart: 56-25-0885Dve-patient / Non-visitSleno Cooper MD Work Phone: [facility] Work Phone: Start: 42-08-6552Dmm-patient / Non-visitSleno Cooper MD Work Phone: [phone] [place] [address] Physician [facility]-Heart Rhythm ClinicStart: 08-02-2024 End: 55-04-3376Wbmejxv encounter procedureSleno Cooper MD Work Phone: [phone] Palli CareStart: 08-02-2024 End: 24-74-9585uhepfurljgBarhbh E Ross MD Work Phone: [facility] Work Phone: Start: 65-96-5225Bhf-patient / Non-visitSleno Cooper MD Work Phone: [facility] Work Phone: Start: 82-80-9164Fbrndlsrme Philly Cooper MD Work Phone: [phone]Spe[facility] Therapy Cancer CenterStart: 02-73-2581Rdn-patient / Non-visitSleno Cooper MD Work Phone: [facility] Physician [facility] Work Phone: Start: 07-26-2024 End: 77-38-8958yckqafwjqbVTHCOU VARGAS ot AvailableStart: 62-41-1680Tzggiinllb Philly Cooper MD Work Phone: [facility] Work Phone: Start: 20-49-2930Xiv-patient / Non-visitSleno Cooper MD Work Phone: [facility] Physician [facility] Palliative Work Phone: Start: 07-26-2024 End: 58-32-5381Ozbxidwr ReferredDemetrius Cooper MD Work Phone: [facility] Palliat CareStart: 07-26-2024 End: 66-86-9674heqpbupfilQclmtv E Ross MD Work Phone: [facility] Work Phone: Start: 07-26-2024 End: 93-33-5007Qaqyzox encounter procedureSleno Cooper MD Work Phone: [facility] Work Phone: Start: 71-91-4507Dqs-patient / Non-visitSleno Cooper MD Work Phone: [facility] Physician [facility]-Heart Rhythm ClinicStart: 37-62-5035Gar-patient / Non-visitSleno Cooper MD Work Phone: [facility] Work Phone: Start: 36-23-2487rndplxmgeuJdxuoec Stevens Facility:[facility]: 93-46-8566Sspawnxgjr Recurring Demetrius Cooper MD Work Phone: [facility]-Speech Therapy Cancer CenterStart: 79-61-5988Yfp-patient / Non-visitSleno Cooper MD Work Phone: [facility] Work Phone: Start: 07-20-2024 End: 92-55-0264Hynjidn encounter procedureSleno Cooper MD Work Phone: [facility] Work Phone: Start: 07-19-2024 End: 43-27-9396edbbqqwmirOAXZBTK [facility] Hospitaltart: 87-45-4403Vpp-patient / Non-visitSleno Cooper MD Work Phone: [facility]-Heart Rhythm ClinicStart: 07-19-2024 End: 12-51-4860Gblaawol Magali Cooper MD Work Phone: [facility] CareStart: 07-19-2024 End: 26-48-7498Xrsxjhu encounter procedureSleno Cooper MD Work Phone: [facility] HealthcareStart: 07-19-2024 End: 20-38-3695ynviaaqnijGucckhzoe M [facility]'s Hospitalcility:[facility]tart: 07-17-2024 End: 90-01-8871Vozpqxrg Result EncounterMatteo Melo MD Work Phone: [facility] External Department UnsolicitedStart: 07-17-2024 End: 10-57-9158Bquziikw Result EncounterMatteo Bell MD Work Phone: [facility] External Department UnsolicitedStart: 07-17-2024 Registered Philly oCoper MD Work Phone: [facility] Work Phone: Start: 07-17-2024 End: 40-61-5728Kbqlwhjlp to same day surgery centerSleno Cooper MD Work Phone: [facility] CampusStart: 07-17-2024 End: 62-57-2272qwhrcivcgjCzgvta E Ross MD Work Phone: [facility] Work Phone: Start: 65-91-0146Xyb-patient / Non-visitSleno Cooper MD Work Phone: [facility] Work Phone: Start: 28-66-0230Yks-patient / Non-visitSleno Cooper MD Work Phone: [facility] Work Phone: Start: 85-83-2321Zek-patient / Non-visitSleno Cooper MD Work Phone: [facility] Physician [facility] CenterHeart Rhythm ClinicStart: 66-13-4349Rycejfdpcc Philly Cooper MD Work Phone: [facility] Acute Work Phone: Start: 17-90-2905Dvo-patient / Non-visitSleno Cooper MD Work Phone: [facility] Physician [facility] Palliative Work Phone: Start: 07-12-2024 End: 28-33-0140Hyxdlrn encounter procedureSleno Cooper MD Work Phone: [facility] Work Phone: Start: 07-12-2024 End: 79-07-4207nqoklwtlnfVeatou E Ross MD Work Phone: [facility] Work Phone: Start: 28-18-6570Qsa-patient / Non-visitSleno Cooper MD Work Phone: [facility] Work Phone: Start: 07-10-2024 End: [id number] Children's Medical Centertart: [id number]-patient / Non-visitSleno Cooper MD Work Phone: [facility] Work Phone: Start: [id number]-patient / Non-visitSleno Cooper MD Work Phone: [facility]hythm ClinicStart: [id number]-patient / Non-visitSleno Cooper MD Work Phone: [facility] [facility] Work Phone: Start: 07-06-2024 End: 49-48-3185Txsrqucb Magali Cooper MD Work Phone: [facility] Palliat CareStart: 07-06-2024 End: 97-03-7503Zurejvm encounter procedureSleno Cooper MD Work Phone: [facility] PalliativeStart: 07-06-2024 End: 95-18-3999iilqnydnudFermxw E Ross MD Work Phone: [facility] Work Phone: Start: 62-28-0730Hom-patient / Non-visitSleno Cooper MD Work Phone: [facility] Work Phone: Start: 07-04-2024 End: 06-24-9431ailxzfogagBiseuz E. RossFacility:FT FM BellevueStart: 07-03-2024 End: 32-68-8707Wou Drop offMhd Ramin Faustin [facility] Start: 07-03-2024 End: 21-73-1369Hkhkyaty Magali Cooper MD Work Phone: [facility]Start: 07-03-2024 End: 03-03-8632Mum Drop offSleno Cooper [facility] Start: 07-03-2024 End: 40-92-6481pqodyjwvlwIrynzc E. RossFacility:FTMCStart: 06-23-2024 End: 40-93-8863Pbzbupt encounter procedureIsabel Romano AUD Work Phone: NOYH AUDComment on above:Sensorineural hearing loss, bilateral (Primary Dx); Tinnitus, bilateralStart: 06-23-2024 End: 08-15-7225rbgpdfccgbACDCCED Polina ROMANONot AvailableStart: 06-23-2024 End: 21-71-5517Gujekr flowsJudith Romano AUD Work Phone: noms AUDStart: 06-23-2024 End: 38-12-4043Xvunpw Zoraida Romano AUD Work Phone: noms AUDStart: 06-22-2024 End: 93-28-5763Vnwiwja encounter procedureSleno Cooper MD Work Phone: [facility] Wkh-Pxj-Kqmpjfyq Testing Work Phone: Start: 06-22-2024 End: 56-64-1303kwtunstetwGpibzr E Ross MD Work Phone: [facility] Work Phone: Start: 11-33-6295Ropqiprhf for preprocedural laboratory examinationMatteo Woody [facility] GroupStart: 06-22-2024 End: 99-21-3552Ekuzbrxy Result EncounterMatteo Melo MD Work Phone: noms External Department UnsolicitedStart: 06-22-2024 End: 32-78-3831Sadpqnad Result EncounterMatteo Bell MD Work Phone: noms External Department UnsolicitedStart: 06-20-2024 End: 25-67-4306Pzfjct outpatient new 45 minutesMatteo Melo MD Work Phone: noms ST GENSComment on above:Poor intravenous access (Primary Dx); 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)Start: 06-20-2024 End: 42-81-4233ylatxarpbhWTHCNI VARGAS VNot AvailableStart: 29-87-9478Itj- patient / Non-visitSleno Cooper MD Work Phone: [facility] Ambulatory Work Phone: Start: 72-96-3334Fnummlqysg Philly Cooper MD Work Phone: [facility] Work Phone: Start: 06-14-2024 End: 85-58-1104wztutmraycQhhkbc E Ross MD Work Phone: [facility] Work Phone: Start: 06-14-2024 End: 07-94-1890Dkiriun encounter procedureSleno Cooper MD Work Phone: [facility] Work Phone: Start: 25-91-1257Ayjxurwvaz Philly Cooper MD Work Phone: [facility] Work Phone: Start: 06-14-2024 End: 09-73-0946jvyqflbhaoBvhbfg E Ross MD Work Phone: [facility] Work Phone: Start: 06-14-2024 End: 08-93-5096Czzvfuy encounter procedureSleno Cooper MD Work Phone: [facility] Work Phone: Start: 06-06-2024 End: 73-41-7304garolxlwnsOPXBBarnesville Hospitaltart: 06-05-2024 End: 63-90-3049Htxmaxvaci hospital visit by [facility]Hill[facility] [address] [place], [place] [address]Comment on above:Enlarged submental lymph nodeStart: 06-05-2024 End: 48-50-6635ngcjrovpvlIXZIIZT N STEVENSOur Lady of Mercy Hospitaltart: 05-30-2024 End: 23-67-4033Zqryyn follow up visit related to original Mckenzie Schneider MD Work Phone: [facility] CenterComment on above: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); Metastasis to cervical lymph nodeStart: 05-30-2024 End: 23-62-4970dlxqqyoswwUSJGZLU N [facility]: 05-15-2024 End: 90-28-0640Zvigoeihsn hospital visit by physicianRad External FilmEF RAD EXTERNAL FILM VIRTUALComment on above:ArrivedStart: 05-15-2024 End: 49-40-1940ktgdxcvcufOJTJJWZ N [facility] Hospitalt[facility]: 05-11-2024 End: 18-92-7753Ddcppxozbo hospital visit by Yajaira Schneider MD Work Phone: [facility] Johnny ORComment on above: 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); Oral lesion; Malignant neoplasm of floor of mouthStart: 04-07-2024 End: 35-81-8420xylfvdkjenNEIKGNB N STEVENSOur Lady of Mercy Hospitaltart: 03-29-2024 End: 69-60-0336Uqpxka Kilo Ham MD Work Phone: noms CI ENTStart: 03-29-2024 End: 83-27-0316Wtspkj Kilo Ham MD Work Phone: noms CI ENTStart: 03-29-2024 End: 05-33-9527Ccvpaw outpatient visit 15 minutesLuc Ham MD Work Phone: noms CI ENTComment on above: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 Hospitaltart: 03-27-2024 End: 52-25-5585Mrgjunqgrm hospital visit by physicianArrival Time Radiology Work Phone: Radiology Pet CTStart: 03-23-2024 End: 19-07-8433zjiyezutdgKfqzhjht Talal SarminiFacility:Genesis HospitalLalit DHStart: 03-23-2024 End: 36-45-3575Pnehmfs encounter procedureMuhammad Talal Lilymini [phone]-IchpkMercy Health Defiance Hospital [facility] Start: 03-08-2024 End: 13-19-6589Oqgyyi Kilo Ham MD Work Phone: noms CI ENTStart: 03-08-2024 End: 88-87-5771Onwsnt flowsHilario Ham MD Work Phone: noms CI ENTStart: 03-08-2024 End: 15-64-2530Wqwwxn outpatient visit 40 minutesLuc Ham MD Work Phone: noms CI ENTComment on above:Oral ulcer (Primary Dx); 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)Start: 03-08-2024 End: 54-59-4536ifvegjrbxqQMLBUJ H TIMMISNot AvailableStart: 03-06-2024 End: 39-61-3032Hoewxzdri encounterLuc Ham MD Work Phone: noms ENT NORWALKStart: 02-29-2024 End: 75-66-3632pczzcqtrjfCL Samuel E Ross Work Phone: [facility] Work Phone: Start: 02-29-2024 End: 37-71-8709Gwhblzrz ReferredMD Demetrius Cooper Work Phone: [facility]-LAB Path Spec [facility] HospStart: 02-16-2024 End: 98-82-6379Vztipl outpatient visit 25 minutesLuc Ham MD Work Phone: noms CI ENTComment on above:LAD (lymphadenopathy) of right cervical region (Primary Dx)Start: 02-16-2024 End: 47-39-3601ancamxcszjJOCJTW H TIMMISNot AvailableStart: 02-16-2024 End: 12-96-0560Cgrcpk flowsheetAngela Lowe PA Work Phone: noms [address]Start: 02-16-2024 End: 57-88-4218Kyhbxy flowsheetAngela Lowe PA Work Phone: noms [address]TEStart: 02-16-2024 End: 34-12-9279Wfdhxe outpatient visit 15 minutesAngela Malou [place] Work Phone: noms [address] R[address]TEComment on above:Migraine without aura and without status migrainosus, not intractable (CMS/HCC) (Primary Dx); Vertigo; Lumbar radiculopathy; Neck pain; Degenerative disc disease, cervical; PolyneuropathyStart: 02-16-2024 End: 55-57-7870pcipclgoqfZALVHW LOWENot AvailableStart: 02-14-2024 End: 49-18-7203wqdaecyyzvSENJEA H TIMCARLOSNot AvailableStart: 02-02-2024 End: 28-49-4631Dbtvmlexm encounterToms Pino CASON Work Phone: General SurgeryComment on above:MRI Appointment; Director Speech Language - OtherStart: 02-01-2024 End: 76-45-3572Mhbikk Kilo Ham MD Work Phone: noms CI ENTStart: 02-01-2024 End: 86-05-5395Etnozk Kilo Ham MD Work Phone: noms CI ENTStart: 02-01-2024 End: 62-80-6357Eakjxt outpatient new 30 minutesLuc Ham MD Work Phone: noms CI ENTComment on above:Parotid mass (Primary Dx) Start: 02-01-2024 End: 24-98-0956DxltqiKhlh Augustin MD Work Phone: General SurgeryStart: 01-10-2024 End: 36-89-3909sqdgfxwxcwQibane E. RossFacility:FT FM BellevueStart: 11-09-2023 End: 67-46-9647Ryurnjk encounter procedureMuhammad Talal Sarmini [facility] Start: 10-21-2023 End: 61-72-4142Ghgxffg encounter procedureMuhammad Talal Sarmini [phone]-OdprbMercy Health Defiance Hospital [facility] Start: 09-17-2023 End: 50-88-8821Qdevuoo encounter procedureAnjali Ruby [phone]-LurvvMercy Health Defiance Hospital [facility] Start: 09-02-2023 End: 77-70-1620fdbfpkfghxRrfpyahpnBellevue Hospital Work Phone: Start: 09-02-2023 End: 72-73-8293Zswyhff encounter procedureLifecare Hospit[facility] Work Phone: Start: 07-27-2023 End: 48-17-0759Wxyzeri encounter procedureLifecare Hospitals Of [facility] Macario Work Phone: Start: 27-40-2366Wefchi outpatient visit 25 minutes Gisele [facility] OutPtStart: 05-31-2023 End: 27-67-9003mygqndfxemFJ Demetrius Cooper Work Phone: [facility] Work Phone: Start: 05-31-2023 End: 88-15-1083Nbfrkcd encounter Tomy Cooper Work Phone: [facility]-Sleep Lab Work Phone: Start: 05-25-2023 End: 48-39-6082Pkitzml encounter Mati Ruby [phone]-RqozfMercy Health Defiance Hospital [facility]estive [facility] Start: 15-29-3873Tnvtneyno encounterToms Pino CASON Work Phone: General SurgeryComment on above:Received Outside Medical RecordsStart: 04-01-2023 End: 89-92-3439ytytkdieesBJSL AUGUSTINFacility:[facility] Hospitaltart: 04-01-2023 End: 50-93-8869Ffyyoow encounter procedureToms Pino CASON Work Phone: General SurgeryComment on above:IPMN (intraductal papillary mucinous neoplasm) (Primary Dx)Start: 03-10-2023 End: 29-81-4892Kbfidhp encounter procedureBelina Lyssa Ruby [facility] Start: 03-10-2023 End: 02-50-9948Erzjyyc encounter procedureBelina Omalley Flori [phone]-KearkMercy Health Defiance Hospital [facility]ive [facility] Start: 02-25-2023 End: 28-34-6285Rhylxty encounter procedureBelina Lyssa Rodriguezz [phone]-FsthuMercy Health Defiance Hospital [facility] Start: 02-16-2023 End: 47-25-8095ojtapgpdmeNP Samuel E Ross Work Phone: [facility] Work Phone: Start: 02-16-2023 End: 53-55-0444Slvbozw encounter procedureMD Demetrius Cooper Work Phone: [facility]-MRI Main [place] Work Phone: Start: 58-37-0863Eovlwh outpatient visit 25 minutes [facility] SouthStart: 01-29-2023 End: 24-57-7533piiibfrikfJP Samuel E Ross Work Phone: [facility] Work Phone: Start: 01-29-2023 End: 92-76-3044Dgnqdsa encounter procedureMD Demetrius Cooper Work Phone: [facility]-Sleep Lab Work Phone: Start: 99-05-8266egsricznbtLdhkmhfo:9090Start: 01-27-2023 End: 61-81-6578papxnstyqdML Samuel E Ross Work Phone: [facility] Work Phone: Start: 01-27-2023 End: 00-07-6314Tsmtlmc encounter procedureMD Demetrius Cooper Work Phone: [facility]-Pacemaker CheckStart: 01-12-2023 End: 66-48-3974Lubbumi encounter procedureBelina Omalley [facility] [phone]-KbzfjMercy Health Defiance Hospital [facility] Start: 12-17-2022 End: 01-45-7780Meuezyc encounter procedureBelina Omalley [facility] Start: 12-09-2022 End: 99-14-2925bpoyydhszfCY Demetrius Cooper Work Phone: [facility] Work Phone: Start: 12-09-2022 End: 27-25-2887Zmwdkti encounter procedureMD Demetrius Cooper Work Phone: [facility]-Sleep Lab Work Phone: Start: 11-23-2022 End: 92-87-5571Ptb Drop offSleno Cooper [facility] Start: 24-40-5118Alggtv outpatient visit 15 minutes [facility] SouthStart: 10-13-2022 End: 31-66-6657ugtduwiqabLA Mg [place] Work Phone: [facility] Work Phone: Start: 10-13-2022 End: 13-43-9273Zdtyitk encounter procedureMD Mg [place] Work Phone: [facility]-Sleep Lab Work Phone: Start: 09-29-2022 End: 13-68-7614knzjkzttiwIM EDY Perea:B2Fgqfn: 09-24-2022 End: 57-91-0817wnkwojlniuUV MARC A NADERERFacility:Q0Hkczk: 09-22-2022 End: 88-69-0299Iwykdpvky department patient visitGordy Sánchez [facility] Start: 89-69-7959Rpgnck outpatient visit 15 minutes Griselda [facility] ClydeStart: 09-22-2022 End: 57-83-4992myihcdnzbnHXZEHWMGIVRK LAKSHMIPATHY .[facility] [place] Other Start: 08-25-2022 End: 97-28-2159abenrdvaagOLJHRIDXXBVP LAKSHMIPATHY .Facility:K1Rqksv: 08-12-2022 ambulatoryFacility:9090Start: 08-12-2022 End: 62-48-8602gziwetbvtgMR Marc Naderer Work Phone: [facility] Work Phone: Start: 08-12-2022 End: 37-19-1003Jmrohtx encounter procedureMD Mg [place] Work Phone: [facility]-MRI Main [place] Work Phone: Start: 08-11-2022 End: 07-31-4100kovskfnfucRUKRAHHQDUVP LAKSHMIPATHY .Facility:D5Ualun: 07-29-2022 Office outpatient new 60 minutesDavid [facility] Start: 07-29-2022 End: 28-70-5066rqnjfzqrzpVQ Marc Naderer Work Phone: [facility] Work Phone: Start: 07-29-2022 End: 38-56-0619Fqwwxuo encounter procedureMD Mg [place] Work Phone: [facility]-Sleep Lab Work Phone: Start: 07-23-2022 End: 07-95-0184njwfhhstxvSQFZ LAZO .Facility:S7Dmitb: 07-22-2022 End: 74-65-1467lplwgzpvpcYOQQQ D HIGHLANDERFacility:M7Ggnyc: 07-21-2022 ambulatoryFacility:9090Start: 07-21-2022 End: 52-57-1827yujjkkbwwkTZ Mg [place] Work Phone: [facility] Work Phone: Start: 07-21-2022 End: 05-88-7499Avkgxgo encounter procedureMD Mg [place] Work Phone: [facility]-Pacemaker CheckStart: 06-18-2022 End: 03-58-7351rcisdwkusdQEIVUEPS CULLENFacility:U1Uvbkl: 06-16-2022 End: 08-83-0647wbutwemdamHOFHRZGW CULLENFacility:U4Mkxzc: 06-11-2022 End: 38-51-1095rpqcnlseigRRYAK D HIGHLANDERFacility:K3Izenk: 05-26-2022 End: 75-49-6109Xcppasp encounter procedureParadha GALICIA [facility] Start: 04-16-2022 End: 28-68-0914hilzssiscpPK ERWIN Bell WESTFacility:U5Popjo: 39-80-5588tzfxzvlrepSH AMANDA CLANCY .Facility:A9Dxzkl: 03-12-2022 End: 52-89-4158juvtjhxunoGFWAK D HIGHLANDERFacility:T7Asgea: 03-10-2022 End: 73-31-0645ljakbrkdblJJJQTZOX PERRYFacility:N1Bllsh: 03-06-2022 End: 13-60-3553orsquzpzqbQN DOCTOR MISCFacility:B3Vleme: 12-25-2021 End: 02-72-6562eakgxyjaacMOZL CLIFTON .Facility:G9Vwszj: 12-01-2021 End: 25-25-0012cganmtqqxjGFSEP D HIGHLANDERFacility:W8Yteni: 11-29-2021 End: 81-01-1375lfnctczvifKhsxybocp Breault Other [facility] [place] Other Start: 08-81-8427Bcymtc outpatient visit 15 minutes Leti GarciaFPAvinash Urgent Care ClydeStart: 11-13-2021 End: 70-11-4536qeebatibdmCBBZ LACOURFacility:I8Xlzdn: 09-04-2020 End: 17-98-3674Sqqxspl encounter procedureParam Cosme Work Phone: -MRI Main CampusStart: 08-15-2020 End: 40-71-1998Ngpzves encounter procedureParam Cosme-Pacemaker CheckStart: 08-30-2019 End: 50-11-0031Nubbcbi encounter procedureEHAB A ELTAHAWYFacility:[facility] Procedures DateProcedureProcedure DetailPerforming ClinicianStart: 47-25-0780Zvrjinap emission tomography with computed tomographyDemetrius Cooper MD Work Phone: Start: 72-52-4852Rbgdp gastrointestinal endoscopy for directed placement of percutaneous gastrostomy tubeSleno Cooper MD Work Phone: Start: 71-89-9640JZSKISI POCT GLUCOMETERSFredric H Jakerhondadilcia Work Phone: Start: 79-01-6364Diajrdqz tomography of abdomen and pelvis with contrastSleno Cooper MD Work Phone: Start: 34-72-1599Zvxnui-up visitFollow-upMADELYN N STEVENSStart: 43-73-4289AA of chest without contrastSleno Cooper MD Work Phone: Start: 57-08-0915Ddivu chest X-raySleno Cooper MD Work Phone: Start: 95-26-0132Fqvpixzo identified in Blood by CultureSleno Cooper MD Work Phone: Start: 01-91-2768Miwnskzmvqu Panel (PCR)Demetrius Cooper MD Work Phone: start: 31-08-6582Mezqo chest X-raySleno Cooper MD Work Phone: Start: 08-28-8637Orijpsr venous cannula insertion Demetrius Cooper MD Work Phone: Start: 66-11-1401WH Infusaport Insertion/Removal (Not Applicable)Demetrius Cooper MD Work Phone: Start: 33-74-6093ISKJVAO POCT GLUCOMETERSMatteo Melo MD Work Phone: Start: 71-71-0500MSOBFMIV FUNCTION TESTSIsabel PALUMBO Work Phone: start: 21-12-5343Jrkyy metabolic panel calcium total Matteo Melo MD Work Phone: Start: 41-58-7888Tinwvtql blood count with white cell differential, automatedMatteo Melo MD Work Phone: Start: 54-96-3081Od guidance needle placement img s&i Mary Schneider MD Work Phone: Start: 77-92-1997Qfntk Interpretation of outside study Mary Schneider MD Work Phone: Start: 55-31-7324Svghulf quantitative blood xcpt reagent stripMaroxy Schneider MD Work Phone: Start: 99-11-9436PGXHD OXIMETRY, CONTINUOUSMondavid Santana MD Work Phone: Start: 41-29-0822Zlgkdza quantitative blood xcpt reagent stripMary Schneider MD Work Phone: Start: 03-95-6862KGFBD/VERIFY ABORHCjuliane Munoz MD Work Phone: Start: 27-31-9643Pybbw typing serologic rh (d)Gabo Munoz MD Work Phone: Start: 48-73-5643Dbzz bld gluc mntr dev cleared fda spec home useCcf ProviderStart: 07-55-9919Sdbfowlepyc procedureAnjali Ruby Comment on above:done for painStart: 06-14-2023 ColonoscopyBelina Ruby Start: 25-92-1647SaajsftpdzcgmaqbixbalgpvdfCsjw Steinmetz Start: 68-61-6273RK abdomen wo conMD Demetrius Cooper Work Phone: Start: 21-75-5272VPH of cervical spine without contrastMD Mg [place] Work Phone: Start: 04-00-4711OP pre/post mri xrayMD Mg [place] Work Phone: Start: 43-93-6970KQV of right ankleMD Mg [place] Work Phone: Start: 59-12-9584SSM screeningCONEMAUGH MEYERSDALE MEDICAL CENTERComment on above:Performed By: #### CBC #### [facility] [address] [place] [address] Dr. Ramsey SanchezStart: 33-92-9600FknldmspqqeitjjtrljthhxgjuRqepkdt GALICIA Comment on above:2 diminunative ulcers, gastritis, gastric polyp, biopsyAngioplasty of blood vesselPaKindred Hospital Northeast Cardiac pacemaker procedurePaKindred Hospital Northeast Cataract (disorder)Gordy Sánchez Comment on above:bilateralCholecystectomyPauniversity of louisville hospitalk GALICIA ColonoscopyG[facility] Hernia repairPatrick GALICIA ProstatectomyAlbany GALICIA TonsillectomyGila Regional Medical Center VasectomyAdventhealth ManchesterCarmichael Training Systems Plan of Treatment DateCare ActivityDetailAuthorStart: 06-08-2025 End: 97-26-3487Adgfvla encounter qhsiycjtm89/23/2026 1:30 PM EST Office Visit [facility] [address] [facility] [address] [place] [address] [place] [address] [place], [place] [id number] [facility] Unittart: 04-11-2025 Creatinine measurementCreatinine [facility] CityStart: 46-22-2097Bacqckiwi measurementPotassium [facility] Start: 04-03-2025 End: 10-11-0602Bwmpwyv encounter dduglohrc65/18/2025 11:00 AM EST Office Visit [facility] [place] [address] [place] [phone] Missy Villarreal NP [address] [place], [place] LISANDRO MENDOZAtart: 28-04-8183Ibrwhnggk vaccinationInfluenza Vaccine (#1) [facility]: 16-79-2146Myznrdc referralThe [facility] Work Phone: Start: 12-11-2024 End: 55-75-3831Wuduvsb encounter pmdzclomp58/28/2025 10:00 AM EDT Office Visit [facility] [address] [place] [address] [place] [address] [place], [place] [id number] [facility]: 10-11-2024 End: 59-50-3100Hwngvcv encounter ylpfcqajr92/28/2025 2:15 PM EDT Office Visit [facility] [address] [place] [address] Veena Ross DO [address] [place] [address] NOMPolina HACKETTtart: 81-88-0234OacufoolsBarnesville Hospitaltart: 09-28-2024 End: 87-28-0894Clgzbsx encounter procedureANA NICOLETTEComment on above:Arrived Start: 08-29-2024 End: 14-81-6103Ninnjtt encounter procedureNOMORROW COUNTY H[facility] ROUTEStart: 68-37-2021VtlllzpqsTogus Va Medical Center CenterStart: 06-67-0649Gjrubatmwmginw of prophylactic treatmentBarnesville Hospitaltart: 08-21-2024 [facility]: 26-56-0952DfczlqyqrBarnesville Hospitaltart: 02-61-3467Iawkzbxq to infectious diseases physicianBarnesville Hospitaltart: 11-06-5030DsyhckyzlBarnesville Hospitaltart: 65-14-7244HJ Chest WO contrastBarnesville Hospitaltart: 08-20-2024 CT of chest without contrastCT chest wo [facility] Start: 43-64-3422Yrumxjcp admissionBarnesville Hospitaltart: 23-86-7036HlhyprklfBarnesville Hospitaltart: 52-82-5926Jpjempwy identified in Blood by CultureBlood CultureBarnesville Hospitaltart: 94-04-5514JbjcvfhyxBarnesville Hospitaltart: 08-09-2024 End: 44-38-1500FhcpztpxiBarnesville Hospitaltart: 08-03-2024 End: 30-59-9795VlaujhzvpBarnesville Hospitaltart: 74-05-9996FmnhqxqbwTogus Va Medical Center CenterStart: 18-21-4071CshltjgklBarnesville Hospitaltart: 07-26-2024 End: 95-75-5697Szptkky encounter nmlabvxyp96/12/2025 10:15 AM EDT Office Visit VALENTÍN SANDOVAL [address] [facility] [address] [place] [address] Matteo Melo MD [address] [facility] [address] [place] [address] [facility] CAMPUStart: 81-92-3755SsstbcushLakehealth [facility] Start: 46-00-1788XwezfjvujBarnesville Hospitaltart: 59-33-8487UceznjwofBarnesville Hospitaltart: 16-85-1434SmjcwkysqBarnesville Hospitaltart: 07-11-2024 End: 33-95-5506Invyksv encounter uagjyhtdm12/25/2025 1:15 PM EST [facility] [address] [facility] [address] [place] [address] Matteo Melo MD [address] [facility] [address] [place] [address] [facility]ITALtart: 53-87-1398LcruecdqvLakehealth Tripoint Medical Center Start: 74-82-8739Dyylnvb venous cannula insertionOR Infusaport Insertion/Removal (Not Applicable)[facility] Hospitaltart: 14-56-1516XcyrvpnrqBarnesville Hospitaltart: 06-23-2024 End: 38-17-4177Nbziltp encounter procedureNOMS SH AUDComment on above:Arrived Start: 42-23-2368Pjgfuga referralThe [facility] Work Phone: Start: 06-05-2024 End: 32-78-5383Hibxpsk encounter cynocoeue91/20/2025 1:00 PM EST Appointment [facility] [address] [place] [address] [facility] Centertart: 05-30-2024 End: 35-54-6388Qbntxnqimuka consultation with dhuokhp8205/30/2024 11:45 AM EST Telemedicine [facility] [address] [place] [address] [place] [address] [place] [address] [facility] Unittart: 05-11-2024 End: 56-41-5190Nlxxcba incl fluor gdnce dx w/cell washg spx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 05/11/2024 7:17 AM ESTVirtual [facility] Johnny NORMAN Start: 05-11-2024 End: [id number] flexible transoral diagnosticEsophagoscopy Malignant neoplasm of floor of mouth 05/11/2024 7:17 AM ESTVirtual [facility] Johnny [place] Start: 05-11-2024 End: 99-28-2980Mylpfvdymuh hemiglossectomyGLOSSECTOMY, ROBOT-ASSISTED, ORAL APPROACH Malignant neoplasm of floor of mouth 05/11/2024 7:17 AM ESTVirtual [facility] Johnny ORStart: 05-11-2024 End: 09-41-5492Gtfbdqtfmiqb w/wo tracheoscopy dx except newbornDirect Laryngoscopy Malignant neoplasm of floor of mouth 05/11/2024 7:17 AM ESTVirtual [facility] Johnny ORStart: 05-11-2024 End: [id number] primary/secondary age 11/>Tonsillectomy Malignant neoplasm of floor of mouth 05/11/2024 7:17 AM ESTVirtual [facility] Johnny ORStart: 31-80-3100Xbuwypgmfv hospital visit by wutzfnphl09/04/2024 Hospital Encounter [facility] [address] [place] [address] [place] [address] [place] [address] [facility] Johnny ORStart: 04-07-2024 End: 04-17-9827Wyswjgn for Pre-Admission Testing VisitRequest for Pre-Admission Testing Visit Procedures Routine Oral lesion Malignant neoplasm of floor of mouth Expected: 04/07/2024 (Approximate), Expires: 04/07/2025[facility] Service Area Work Phone: Comment on above:Expected: 04/07/2024 (Approximate), Expires: 04/07/2025Start: 03-08-2024 End: 14-21-4689Whshgjo encounter procedureNOMS CI ENTComment on above:Arrived Start: 02-16-2024 End: 43-71-1268Vsavhyz encounter /02/2024 2:30 PM EDT Office Visit [facility] [address] [place] [address] Luc Ham MD [address] [place] [address] [facility] CI ENTStart: 02-16-2024 End: 95-30-9719Chtzlgd encounter procedureNOMS [facility] ROUTEComment on above:ArrivedStart: 02-01-2024 End: 77-89-2360Qfkgfrc encounter fnywxiklz22/17/2024 1:10 PM EDT Office Visit [facility] [address] [place] [address] Luc Ham MD [address] [place] [address] ArrivedNOMS CI ENTComment on above:ArrivedStart: 30-30-5307Kipol-19 Vaccine ()Covid-19 Vaccine ()[facility]: 24-34-9447Qqvtz-19 Vaccine () Covid-19 Vaccine ( season)[facility]: 58-25-4334Jtkem-19 Vaccine ()Covid-19 Vaccine ()[facility]: 04-65-7921Upftyrdzu vaccinationInfluenza Vaccine (#1)[facility]: 70-45-3601Bnjpram Directive DiscussionAdvance Directive Discussion [facility]: 53-04-9576Hjfjp-19 Vaccine ()Covid-19 Vaccine ()[facility]: 47-38-3630Pkszgxcch vaccinationInfluenza Vaccine (#1)[facility]: 94-51-1143dvnpasxquc AmbulatoryFacility:X5Ffqev: 60-89-5158Cluppur Directive DiscussionAdvance Directive DiscussionWay[facility] Hospitalt[facility]: 04-81-4210Rvhgqxywsw Assessment Depression AssessmentWayne Hospitaltart: 37-42-6263WWQ of right ankleMR ankle RT wo [facility]trStart: 82-34-9054JW pre/post mri xrayXR pre/post mri xrCity Hospital CtrStart: 43-73-8251Hwcdiefmtmad Vaccine: 65+ (2 - PPSV23 or PCV20)Pneumococcal Vaccine: 65+ (2 - PPSV23 or PCV20)[facility]: 00-37-7690Prrgvirwjqcs Vaccine: 65+ (2 of 2 - PPSV23 or PCV20)Pneumococcal Vaccine: 65+ (2 of 2 - PPSV23 or PCV20)[facility]: 08-68-2060GJV High Risk: (Elderly (60+) or Population) (1 - 1-dose 75+ series)RSV High Risk: (Elderly (60+) or Population) (1 - 1-dose 75+ series)[facility]: 63-44-8470WHL Vaccine (1 - 1-dose 75+ series)RSV Vaccine (1 - 1-dose 75+ series)[facility]: 49-40-0123TNZ Vaccine (1 - 1-dose 60+ series)RSV Vaccine (1 - 1-dose 60+ series) [facility]: 37-13-1104Qwrhquog Vaccine (1 of 2)Shingrix Vaccine (1 of 2)[facility]: 60-92-7844Uarkughx ScreeningDiabetes ScreeningWay[facility] Hospitalt[facility]: 59-89-6650IXbF/Tdap/Td Vaccines (1 - Tdap)DTaP/Tdap/Td Vaccines (1 - Tdap)[facility]: 80-69-0449Vkwse microalbumin profileDTaP,Tdap,Td Vaccine (1 - Tdap)[facility]: 75-74-5737Forep screening for proteinDiabetes: Urine Protein ScreeningUnGrand [facility] Joint [facility] District Memorial Hospital: 89-04-2679Twkdikj ScreeningAnxiety ScreeningWvumedicine [facility] Start: 77-62-2005Uaghseetwi ScreeningDepression ScreeningWay[facility]: 96-35-8645Jxrcpbry screeningDiabetes: Retinopathy ScreeningUnGrand [facility]: 19-61-1475Mzsvym wellness visitWelcome to Medicare Visit [facility]: 90-03-5418QnubqwpjaxcdkfheMiqksfrosevauu [facility]: 91-37-1859Mtghbayste A1c measurement Diabetes: Hemoglobin O9HGqzzfymjuhGrand Lake Joint [facility] District [facility] Hospital: 71-51-7865Smgsu panelLipid PanelUnGrand [facility]: 06-15-1940Medicare Annual Wellness VisitMedicare Annual Wellness Visit (AWV)[facility]: 60-45-7824Cybzc screening for proteinDiabetes: Urine Protein ScreeningFlower Hospital End: 84-35-8760Swjplca device check - [facility]patient[facility] Service Area Work Phone: Comment on above:Once for 1 Occurrences starting 05/11/2024 until 05/11/2024 End: 78-09-3507Ylgcube device check - SurgeryUnMercy Health [facility] Work Phone: Comment on above:Once for 1 Occurrences starting 05/11/2024 until 05/11/2024omprehensive metabolic 1999 panel - Serum or Plasma [facility] CenterComprehensive metabolic 1999 panel - Serum or PlasmaLakehealth Tripoint Medical CenterComprehensive metabolic 1999 panel - Serum or PlasmaLakehealth Tripoint Medical CenterComprehensive metabolic 1999 panel - Serum or PlasmaLakehealth Tripoint Medical CenterComprehenve metabolic 1999 panel - Serum or PlasmaLakehealth Tripoint Medical CenterCT Abdomen W contrast [facility] with contrast for radiotherapy planningLakehealth Tripoint Medical CenterCT with contrast for radiotherapy [facility] End: 40-96-9270Oboewxi [Mass/volume] in Serum or PlasmaPOCT Glucose Point of Care Testing - Docked Device Routine Once (Lab) for 1 Occurrences starting until 05/11/2024[facility] Service Area Work Phone: Comment on above:Once (Lab) for 1 Occurrences starting 05/11/2024 until 05/11/2024Laryngoscopy w/wo tracheoscopy dx except Direct Laryngoscopy Oral lesion Malignant neoplasm of floor of mouthVirtual [facility] [place] End: 98-05-2051VS Biliary ducts and Pancreatic duct WO and W contrast IVMRI PANC/TRISH WO/W IVCON Radiology Routine IPMN (intraductal papillary mucinous neoplasm) 1 Occurrences starting 02/01/2024 until 5C[facility] Work Phone: Comment on above:1 Occurrences starting 02/01/2024 until 03/02/2025 End: 52-21-4106BX Unspecified body region 3D post processingMRI 3D POST PROCESSING Radiology Routine IPMN (intraductal papillary mucinous neoplasm) 1 Occurrences starting 02/01/2024 until 5CSelect Medical Specialty Hospital - [facility] SouthComment on above:1 Occurrences starting 02/01/2024 until 03/02/2025Patient Education [facility] Work Phone: [facility]The [facility] Work Phone: Surgical pathology studySurgical Pathology Exam Pathology and Cytology Routine Oral lesion 04/07/2024 11:37 AM [facility] Work Phone: Surgical pathology [facility] Service Area Work Phone: Comment on above:Release Upon Ordering for 1 Occurrences starting 05/11/2024, 1 completed End: 18-87-7980Nhvusnsa pathology [facility] Service Area Work Phone: Comment on above:Once (Lab) for 1 Occurrences starting 06/05/2024 until 06/05/2024, 1 completedThedaCare [facility] Immunizations Immunization DateImmunizationNotesCare QtxrhxxiVbxaynuk85-24-3562ayftrqshc, high dose seasonal, preservative-free; Translations: [Fluzone High Dose Vaccine] Demetrius Cooper [phone]-SydgxKind[facility] Hospital [facility] [place] 40-33-2582lngulkead virus vaccine, unspecified formulationMary Schneider MD Work Phone: [facility] Work Phone: [phone]owk vaccine recombinantMuhammad Sarmini 358-6496Wboixv-DterwMercy Health Defiance Hospital Digestive Ugessw35-04-1177 pneumococcal 20-valent conjugate vaccineMuhammad Sarmini [phone]-RyijoMercy Health Defiance Hospital Digestive Ctldze00-44-2748 zoster vaccine recombinantMuhammad Sarmini 396-8735Kllzto-XuhexShelby Memorial Hospital12-13-2023 COVID-19 (PFIZER) 11Y and Leda Cooper MD Work Phone: [facility]11-27-2023influenza virus vaccine, unspecified formulationAnjali Ruby [phone]-ZbgerShelby Memorial Hospital07-12-2022 Pfizer Haque Cap SARS-CoV-2 VaccinationLuc Ham MD Work Phone: [facility] CampusVhsfckhato61-22-9434YQCH-EcA-9 mRNA (mdkftkqnzuh-zfiq-waufwms) vaccineSleno Cooper [phone]-OshmrGreen Cross Hospital07-12-2022 SARS-CoV-2, UnspecifiedAngeserena [place] Work Phone: noSt. Luke's HospitalTszyngxuus53-17-5241HAYC-AjC-3 (COVID-19) mRNA BNT-162b2 vaxSleno Cooper [phone]-XmteuGreen Cross HospitalComment on above: Result Comment: 2022-11-03: RED4384-26-5835THZM-FvX-2, UnspecifiedLuc Ham MD Work Phone: NOSt. Luke's HospitalFpwuovglqq43-89-6898luhyubmyp virus vaccine, unspecified formulationSleno Cooper [phone]-JeodaGreen Cross Hospital10-05-2021 Influenza, injectable, Madin Mireya Canine Kidney, preservative free, quadrivalentLuc Ham MD Work Phone: [facility] CampusDnbtjsatjk55-32-0293FDAZ-BlT-5 (COVID-19) Ad26 vaccine, recombinantPress-sense [facility] Medical CenterSrqpojqf84-61-5148FDEJ-DdK-6 (COVID-19) mRNA BNT-162b2 [employer] [facility]02-11-2021SARS-CoV-2, UnspecifiedLuc Ham MD Work Phone: [facility] CampusVcinywynuj88-66-0834PTCL-WmG-7 (COVID-19) Ad26 vaccine, recombinantPress-sense GeneMercy Medical CenterIjnhuapy57-39-7188VMLW-LuM-6 (COVID-19) mRNA BNT-162b2 [employer] [facility]01-21-2021SARS-CoV-2, UnspecifiedLuc Ham MD Work Phone: [facility] CampusMdjhozzsin98-75-4729xwjjecleg virus vaccine, unspecified formulationSleno Cooper [phone]-EeptnGreen Cross Hospital09-30-2020 Influenza, injectable, Madin Mireya Canine Kidney, preservative free, quadrivalentLuc Ham MD Work Phone: [facility] CampusPeivlpfvyj60-01-8437cqmvsqhvu, high dose seasonal, preservative-freeLuc Ham MD Work Phone: [place] [address]Ennbslwfnq25-53-5584xpfsmvqpc virus vaccine, unspecified formulationLuc Ham MD Work Phone: [facility] CampusUvlanunlzj21-03-8400pztemyulj, injectable, quadrivalent, contains preservativeLuc Ham MD Work Phone: [facility] CampusUbgdauezer72-87-4291zqflzjolc, unspecified formulationSleno Cooper [phone]-RzrbbCrystal Clinic Orthopedic Centerue09-16-2014 pneumococcal conjugate vaccine, 13 valFatou Cooper [phone]-AcshjCrystal Clinic Orthopedic Centerue09-16-2014 pneumococcal conjugate vaccine, 7 Ema Ham MD Work Phone: NONH Healthcare Payers DatePayer CategoryPayerPolicy [id number] Health Insurance [id number] [id number] Eligibility Medicare/Medicaid [facility] [place] [id number] [id number] 2023Medicare (Managed Care)[id number] 2023Medicare [id number] 2.16.840.7.006123.596419 [id number] [id number] [id number] 1960 [id number] 2.16.840.1.430229.3.579.2.647 22-96-6360Dfyglbq8156862 2.16.840.1.696275.3.579.2.70176-68-0432Gcfgmnr3937147 2.16.840.1.188292.3.579.2.83911-94-9833Lfbqhid3583318 2.16.840.1.821571.3.579.2.49892-50-4764Wtlthkf7542981 2.16.840.1.076937.3.579.2.31128-78-8995Csjxfsq1634928 2.16.840.1.277938.3.579.2.77531-87-7820Veooakt6834223 2.16.840.1.498355.3.579.2.76044-91-0930Tockura9575000 2.16.840.1.928913.3.579.2.70042-88-5209Xigajiz7192015 2.16.840.1.730694.3.579.2.34018-87-4335Kprkyuj9740694 2.16.840.1.643715.3.579.2.64804-23-8202Qayyynm9431931 2.16.840.1.600296.3.579.2.59348-36-3406Lwfztqr4475469 2.16.840.1.189106.3.579.2.86648-23-2333Ekazzyj0066003 2.16.840.1.400013.3.579.2.83134-38-9681Wrbwwai7066067 2.16.840.1.555789.3.579.2.72670-42-3861Jyrturx0691113 2.16.840.1.151305.3.579.2.17626-96-0505Npyvzkq1964222 2.16.840.1.803704.3.579.2.60788-90-1330Svzblae8169791 2.16.840.1.452984.3.579.2.33631-66-9659Secnaey4532147 2.16.840.1.081433.3.579.2.13237-70-4014Lvyapge7895578 2.16.840.1.460073.3.579.2.95819-10-7541Jevadrk6304648 2.16.840.1.039556.3.579.2.66447-47-3656Ptmcjzm9082897 2.16.840.1.556576.3.579.2.75462-17-3962Ldwavdl216102610 2.16.840.1.431571.3.579.2.68828-64-3598Snvlnrg343364663 2.16.840.1.468149.3.579.2.17982-46-1649Xkqnsqn849290610 2.16.840.1.546106.3.579.2.21110-10-7964Hoqlqmw01781767 2.16.840.1.905105.3.579.2.96520-27-5072Jjnoqln70854623 2.16.840.1.934729.3.579.2.65117-04-9411Cguuiue79952121 2.16.840.1.337134.3.579.2.46999-64-5173Ttjxgkq59844205 2.16.840.1.364369.3.579.2.00541-12-7121Ptgqhhv30903838 2.16.840.1.953452.3.579.2.60449-41-5110Feibbci41112910 2.16.840.1.502398.3.579.2.17622-64-0864Cqxfjjc19600576 2.16.840.1.289110.3.579.2.78943-47-4069Ethcskg48091350 2.16.840.1.671217.3.579.2.89089-04-0410Ghvwdrg37281076 2.16.840.1.255407.3.579.2.80784-92-3814Fqonqjg66783208 2.16.840.1.657133.3.579.2.21731-34-4948Rijvfhe52112120 2.16.840.1.743490.3.579.2.69336-31-5075Supcdvq06459360 2.16.840.1.952412.3.579.2.46593-15-1601Uwvzmbq37016780 2.16.840.1.879100.3.579.2.18308-30-7728Ocjeoim89112253 2.16.840.1.193397.3.579.2.87870-44-2832Nhsyieh12267122 2.16.840.1.915192.3.579.2.80126-43-1955Hfzyqxl66958719 2.16.840.1.377592.3.579.2.51039-19-5642Hcasvyf38274039 2.16.840.1.177411.3.579.2.53139-24-7520Siyylmv72248715 2.16.840.1.066580.3.579.2.37524-97-4344Yzrahao026949447 2.16.840.1.496609.3.579.2.014464-91-3370Dstmoam610246698 2.16840.1.878158.3.579.2.679381-97-3608Inkskoj162935011 2.16840.1.545821.3.579.2.746071-68-9786Kzvspbs991532401 2.16840.1.591299.3.579.2.584440-64-9724Cgznqwc278000370 2.16840.1.203678.3.579.2.945675-32-0995Mtfwzyl891193813 2.840.1.944279.3.579.2.278186-04-9501Vxbfcab57636675 2.0.1.515251.3.579.2.518951-39-0533Kcrkqvf72748167 2.840.1.506664.3.579.2.836756-16-6138Klhpvex41841980 2.840.1.821352.3.579.2.101953-83-3813Hmctljf88661564 2.840.1.864248.3.579.2.338390-59-1496Fcshefn27654008 2.840.1.906085.3.579.2.010863-97-6033[place]8252535 2.840.1.705457.3.579.2.900000-94-6311Yvumfwe9680986 2.16840.1.968062.3.579.2.790843-32-3079Nhkwfrh5037144 2.16840.1.336582.3.579.2.708493-25-0702Pvzxrrq8700672 2.16.840.1.118124.3.579.2.072945-28-1308Nurbksu6287850 2.0.1.805554.3.579.2.169085-64-4774Jsdejdq5849317 2.0.1.447273.3.579.2.581140-61-0976Kegxzsa9992600 2.0.1.784649.3.579.2.067653-73-9931Dklpsuf9440651 2..1.161239.3.579.2.272037-70-1213Mzoyshr4256382 2.0.1.267271.3.579.2.773477-60-0594Fwvqyqk4528512 2.0.1.709516.3.579.2.818301-83-6504Umoiqyz2284285 2.0.1.357242.3.579.2.203624-25-9547Dhepuij6272814 2.840.1.230327.3.579.2.9296Ncvqkek12839117 2.840.1.218724.3.579.2.531 Yliwxmt92213005 2.840.1.775613.3.579.2.927Etppiiq75484473 2.840.1.205758.3.579.2.756Awpbvsi77281097 2.840.1.343033.3.579.2.531 Oipzobu41270563 2.840.1.363452.3.579.2.948Lnzczyp48389524 2.840.1.477968.3.579.2.054Xzuejsf54409606 2.840.1.680448.3.579.2.531 Phnxkgc45229720 2.16.840.1.204682.3.579.2.902Pyjcpvn99264153 2.16840.1.049539.3.579.2.651Ujhhmlg23779759 2.16.840.1.349147.3.579.2.531 Kvxqnmh97698855 2.16840.1.489021.3.579.2.235Dwivrbx47597483 2.16840.1.102310.3.579.2.680Qjgglgw97473760 2.840.1.447470.3.579.2.531 Fuspfyl68275594 2.16840.1.416146.3.579.2.354Jqzcxou05262147 2.840.1.147494.3.579.2.186Fuzkvja48763449 2.840.1.231743.3.579.2.531 Wfjwpsu23620603 2.16840.1.104565.3.579.2.451Mvijscq99552241 2.840.1.669460.3.579.2.033Roppjtl10897497 2.840.1.373622.3.579.2.531 Ehwmyac86301506 2.840.1.852976.3.579.2.252Tvuuocp86086272 2.840.1.526904.3.579.2.638Orhrerj92354948 2.840.1.602958.3.579.2.531 Social History DateTypeDetailFacilityTobacco smoking status NHISUnknown if ever smokedTogus Va Medical Center CtrStart: 13-08-7004Zsv Assigned At BirthSt. [facility]: [facility] End: 07-95-1395Ywi Assigned At BirthC[facility] Clinic [facility] Generaltart: 04-27-2022 End: 57-46-7761Tlnijdc smoking statusEx-smoker (finding)[facility] on above:former smoker quit at age 41, 1 PPDPatient states he smoked about 1.5 PPD, cigarettes, from about 17 y.o. to about 41 y.o.Start: 75-04-6855Zltasui smoking statusNeverExecutive [facility] of [facility] on above:former smoker quit at age 41, 1 PPDPatient states he smoked about 1.5 PPD, cigarettes, from about 17 y.o. to about 41 y.o. End: 40-59-4049Mrvsyrh of tobacco useCurrent smokerWvumedicine [facility]ville Hospital End: 56-83-7747Lhlslhg of tobacco useCigarette SmokerWayne Hospitaltart: 28-19-9027Mdorqqs use and exposureSmokeless tobacco non-userWvumedicine [facility]ville Hospital Start: 04-01-2023 End: 67-64-0213Vsdlbdc of Social functionWayne Hospitaltart: 71-01-1008Ehh Assigned At BirthNot on fileWvumedicine Barnesville HospitalHistory of tobacco usePassive smoker [facility] HealthcareStart: 02-12-2024 End: 21-68-6290Tzquxgpvn beverage intakeCurrent drinker of alcohol (finding)[facility] HealthcareStart: 29-54-5623Gxptics CommentYears smoked: 25N[facility]S HealthcareStart: 68-89-2609Kdeykyk Comment1 or 2 drinks/day, monthly or less; Caffeine: 1 drink/dayAMERICAN FORK HOSPITAL HealthcareStart: 04-07-2024 End: 25-97-0159Ffxjbhl use and exposureFormer smokeless tobacco userUnMercy Health Urbana Hospital Work Phone: Start: 04-01-2024 End: 65-33-4922Ijrunglr to SARS-CoV-2 (event)Not sureUnMercy Health Urbana HospitalStart: 62-78-3174Hnhari identityIdentifies as male gender (finding) [facility] Work Phone: Start: 91-18-9308Zkrkyw orientationHeterosexual (finding)[facility] Work Phone: Start: 06-14-2024 End: 39-05-7444OjvSohx (finding)[facility]: 08-20-2024 End: 89-91-9138Vencuyb smoking status NHISNever smoked tobacco (finding) [facility]: 14-14-6979IXKH Follow upSDOH Follow up [facility] Work Phone: Sexual OrientationZanesville City Hospital Start: 05-30-0081Gswhucc Commentor less or week [facility] Work Phone: Medical Equipment Procedure CodeEquipment CodeEquipment Original TextEquipment IdentifierDates Insertion of central venous catheter (CVC) with subcutaneous port for chemotherapyVascular port/[id number] [facility] Start: 07-17-2024 End: 25-03-0306Xsf Instructions, one touch ultra test strips test sugars once a dayStart: 06-95-6924Gxc Instructions, one touch ultra lancets Use to test sugars once a dayStart: 65-69-7020Myd Instructions, one touch ultra test strips test sugars once a dayStart: 17-00-3173Ikc Instructions, one touch ultra lancets Use to test sugars once a dayStart: 18-48-8698Lpm Instructions, one touch ultra test strips test sugars once a dayStart: 59-14-1540Ozh Instructions, one touch ultra lancets Use to test sugars once a dayStart: 19-99-6433Jfi Instructions, one touch ultra test strips test sugars once a dayStart: 65-01-9497Nkq Instructions, one touch ultra lancets Use to test sugars once a dayStart: 54-78-1596Nsy Instructions, one touch ultra test strips test sugars once a dayStart: 58-03-0575Fiy Instructions, one touch ultra lancets Use to test sugars once a dayStart: 27-90-9694Qxj Instructions, one touch ultra test strips test sugars once a dayStart: 08-53-9329Kzj Instructions, one touch ultra lancets Use to test sugars once a dayStart: 51-35-0445Vkt Instructions, one touch ultra test strips test sugars once a dayStart: 54-83-7201Zpz Instructions, one touch ultra lancets Use to test sugars once a dayStart: 72-75-0545Urf Instructions, one touch ultra test strips test sugars once a dayStart: 59-20-1366Zpy Instructions, one touch ultra lancets Use to test sugars once a dayStart: 97-59-5353Jtf Instructions, one touch ultra test strips test sugars once a dayStart: 06-00-5310Fhl Instructions, one touch ultra lancets Use to test sugars once a dayStart: 04-48-1745Gxd Instructions, one touch ultra test strips test sugars once a day Start: 60-81-2616Geo Instructions, one touch ultra lancets Use to test sugars once a dayStart: 11-94-3348Zze Instructions, one touch ultra test strips test sugars once a dayStart: 70-93-5287Isc Instructions, one touch ultra lancets Use to test sugars once a dayStart: 78-77-4134Kta Instructions, one touch ultra test strips test sugars once a dayStart: 75-53-7184Kgu Instructions, one touch ultra lancets Use to test sugars once a dayStart: 46-58-6810Jle Instructions, one touch ultra test strips test sugars once a dayStart: 12-86-6869Pqi Instructions, one touch ultra lancets Use to test sugars once a dayStart: 01-17-7245Eks Instructions, one touch ultra test strips test sugars once a dayStart: 45-60-0292Cqy Instructions, one touch ultra lancets Use to test sugars once a dayStart: 32-51-7190Jug Instructions, one touch ultra test strips test sugars once a dayStart: 68-04-1696Ofv Instructions, one touch ultra lancets Use to test sugars once a dayStart: 92-71-4714Pjb Instructions, one touch ultra test strips test sugars once a dayStart: 24-11-2978Hcy Instructions, one touch ultra lancets Use to test sugars once a dayStart: 08-20-3582Gqv Instructions, one touch ultra test strips test sugars once a dayStart: 36-28-1494Fmi Instructions, one touch ultra lancets Use to test sugars once a dayStart: 08-24-2022 Goals DatePatient GoalDesired Activity/State Functional Status AqaqDfxqeaoaxlIpoopeRkuygvtk94-50-3482Jkxuwos Health Questionnaire 2 item (PHQ- 2) [Reported][facility] Work Phone: [phone]) [phone]dbivvkkdl statusPatient at Baseline [facility] Work Phone: [phone]) 102-23071559036-09-8384Czjmztyhnc StatusN/[facility] Zwjtok07-70-0505Cielbfmxai StatusN/[facility] Zscwrq24-89-4902Dcmhmdtrbo StatusN/[facility] Yybfkv37-56-3756Arfwtvaqgb StatusN/[facility] Oekqig53-90-3590Ospebzpjjw StatusN/[facility] Ogifrc99-17-2703Enrhdpfdxk StatusN/[facility] Kltrja02-42-4019Rkspvrcwmf StatusN/[facility] Ugxdas10-56-7025Byccplvgjs StatusN/[facility] 09-89-6842Rfbcogrsfh StatusN/[facility] Mental Status WvpnBjkhnwxyiuVooumtXnpjnchv05-48-5204Evyclvoyp functionCognitive Status [facility] Work Phone: Clinical Notes 11-29-2021 to 01-18-2025 Note Date & ZmhjDggvNyocbrih81-58-0741 History of Present illness Narrative* Veena Ross, - 01/18/2025 9:45 AM EDT Images from [...] I'll see him PRN. documented in this encounterResearch Medical Center-Brookside CampusDxjrwxekct77-61-9687 Evaluation note* Diagnosis Onset Date Resolution Status Admit Date Squamous cell carcinoma of oropharynx acuteAugust 2024 12:32pmSquamous cell carcinoma of oropharynxacuteOctober 2024 9:41am [facility] Work Phone: [phone]) 137-679808-12-2025 [facility] [place] [address] Cancer Center Note Signed Patient: Jeremie Bennett MR#: [id number] : 1940 Acct:[id number] Age/Sex: 84 / M Type: DEP AMB [...] G-tube was placed by surgery here at [facility] and patient is hopeful to have this [...] ([place] Extended-Release) Allergy (Unknown, Verified 11/23/24 10:00) [facility] Medical History Medical History (Updated 11/23/24 @ [...] Mother Heart disease History of stroke [facility] Problem: Diagnosed with Stroke Hypertension Emphysema lung ESRD (end stage renal disease) [facility]: Diagnosed with Cancer Lymphoma Social History [...] APRN DD/ 1303 Signed By: 12/26/24 1343 [facility]07-28-2025 History of Present illness Narrative * Mary Schneider MD - 12/11/2024 1:45 PM EDT HEAD AND NECK SURGERY FOLLOW UP [facility] Referring Provider: Dr. Ham HPI [...] onc) and Dr Lamas (med onc) at [facility] - November 2024 post treatment PET [...] lymph nodes Procedure Note: Diagnostic Flexible Laryngoscopy (56061) Indication: patient symptoms requiring evaluation of pharyngeal/laryngeal/hypopharyngeal [...] now s/p completion of chemoradiation treatment at [facility] August 2024 - Doing well overall, scope and exam findings with improved thick mucous and edema. 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 [...] (CMS/HCC) Heart valve disease Hyperlipidemia Throat cancer ([facility]) VT (ventricular tachycardia) ([facility]) PSH: Past Surgical History: Procedure Laterality [...] Depression: Not at risk (09/11/2024) Received from [facility] PHQ-2 Patient Health Questionnaire-2 Score: 0 [...] MOUTH IN THE MORNING 100 tablet 3 NSHOQXDEHK-MCGXBJB-QBARCEAG ORAL Take by mouth if needed. clopidogrel [...] 1 tablet every day by oral route. fgmuxhpyhz-jypjywixdoyny-pdbs (Esgic) 50-325-40 mg capsule Take 1 capsule [...] mg by mouth in the morning. HYDROcodone-acetaminophen ([place]) 5-325 mg tablet Take 1 tablet by mout (more content not included)...[facility]07[facility]10[facility] [place] [address] Cancer Center Note Signed Patient: Jeremie Bennett MR#: [id number] : 1940 Acct:[id number] Age/Sex: 84 / M Type: REG AMB [...] by IHC was equivocal. As per the [facility] tumor board recommendation is either doing [...] his week 1 of cisplatin. Labs at [facility] on 07/03/24 revealed hgb 13.3, cr is 1.0. He is having his labs here today.He had his pacemaker placed on 07/10/24 in [place]. 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 He [...] positive squamous cell carcinoma. Tumor board at [facility] in [facility] and the recommended concurrent chemoradiation. [...] with concurrent chemoradiation. Since he lives in [place] he was referred by Dr. Mary Schneider from ENT at [facility] to our medical oncology and radiation oncology at [facility]. He is referred to medical oncology for [...] his week 1 of cisplatin. Labs at [facility] on 07/03/24 revealed hgb 13.3, cr is 1.0. He is having his labs here today.He had his pacemaker placed on 07/10/24 in [place]. 07/20/2024 he came in complaining of increase [...] NO concerns voiced at time of intake. [facility] Medical History Medical History Squamous cell carcinoma [...] Heart disease [facility] of [facility]: Diagnosed with Stroke Hypertension Emphysema lung ESRD (end stage renal disease) Sister Cancer [facility] Problem: Diagnosed with Cancer Lymphoma Social [...] Faustin MD DD/ 0957 Signed By: 11/23/[address] [place], [place] 6465107-10-2025 Evaluation note* Diagnosis Onset Date Resolution Status Admit Date Cancer associated pain acuteJuly 2024 7:46amSquamous cell carcinoma of oropharynxacuteJuly 2024 7:46amSquamous cell carcinoma of oropharynxacuteJuly 2024 9:41am Squamous cell carcinoma of oropharynxacuteJuly 2024 10:01amSquamous cell carcinoma of oropharynxacuteAugust 2024 12:32pm [facility] Work Phone: [phone]) 413-231007-08-2025 NotePatient Education Endocrinology Blood Glucose Monitoring, Adult [...] Where to find more information ??? The Chinese Diabetes Association: diabetes.org ??? The Association of [...] levels in y (more content not included)... 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[facility]) 01/27/2024 Migraine headache ([facility]) Mixed incontinence 01/27/2024 Other specified disorders of synovium, right ankle and foot Pain management Pain of upper abdomen 04/03/2022 Paronychia of great toe bilateral Peptic ulcer 04/03/2022 Personal history of other medical treatment 04/2018 body map scanned in for biopsies and trtm Prostate cancer ([facility]) Right flank pain 04/03/2022 Sinus tarsi syndrome of right foot Sleep apnea Toe pain, right Type 2 diabetes mellitus with diabetic neuropathy ([facility]) Ventricular tachycardia ([facility]) Social History Tobacco Use Smoking status: [...] 2005 ablation OTHER SURGICAL HISTORY 2007 sphincterotomy [place] CHOLECYSTECTOMY 02/2020 Laparoscopic Cholecystectomy - [place] IMPLANT ARTIFICIAL SPHINCTER 2017 PROSTATE 2000 TONSILLECTOMY [...] schedule early next week. documented in this encounterResearch Medical Center-Brookside [id number] Radiology Diagnostic study [facility] [place] [address] [place] [address] CT Scan Report Signed Patient: Jeremie Bennett MR#: [id number] : 1940 Acct:[id number] Age/Sex: 83 / M ADM Date: 5 Loc: ER Room: Type: [facility] ER Attending Dr: Copies to: [...] Gordon M.D. 09/20/2024 8:03 PM Dictation Location: [place] [address] Transcribed By: [facility] 09/20/242002 Dictated By: Rafi Gordon II, MD 09/20/241947 Signed By: 09/20/242002 [facility] Work Phone: 1(383) [phone] Hospital Discharge instructions Additional Instructions Please return [...] testing/monitoring to rule out evidence of possible cancer.[facility] Work Phone: 1([phone]) 799-997805-01-2025 NotePatient Education Nutrition BMI for Adults Body [...] for Disease Control and Prevention: cdc.gov ??? Chinese Heart Association: heart.org ??? National Heart, Lung, and Blood [place]: nhlbi.nih.gov This information is not intended to replace advice given to you by your health care provider. Make sure you discuss any questions you have with your health care provider. Document Revised: 01/21/2023 Document Reviewed: 01/14/2023 [employer] Patient Education ? 2023 [employer] 09-11-2024 History of Present illness Narrative* Mary Schneider MD - 09/11/2024 2:00 PM EDT HEAD AND NECK SURGERY FOLLOW UP [facility] Referring Provider: Dr. Ham HPI I had the pleasure of seeing Jeremie Alanis Bauer as a follow up today. Spouse accompanies [...] and Dr Lamas (med onc) at [facility] after completion of chemoradiation treatment earlier this month. Weight down to 149 lbs (prior 170 lbs). Swallowing liquids, saw RADIOTELEGRAPH OPERATOR SERVICER during treatment, not recently. Had pacemaker replaced. [...] lymph nodes Procedure Note: Diagnostic Flexible Laryngoscopy (62240) Indication: patient symptoms requiring evaluation of pharyngeal/laryngeal/hypopharyngeal [...] now s/p completion of chemoradiation treatment at [facility] August 2024 - Doing well overall, scope and exam findings as expected - Recommend continued RADIOTELEGRAPH OPERATOR SERVICER therapy, he will do this closer to home - Discussed imaging, he has PET scheduled in November - Will need post-treatment NavDx either now or at next appointment - Discussed NCCN guidelines and ongoing surveillance - Follow up with me in 2-3 months after PET, certainly sooner if any issues Mary Schneider MD documented in this [facility] Work Phone: 1(286) [phone] Evaluation note* Diagnosis Onset Date Resolution Status Admit Date Tongue cancer acuteApr2024 9:14amCAD (coronary artery disease)acuteApr2024 9:55amCentral sleep apneaacuteApril 2024 9:55amDM (diabetes mellitus)acute September 11, 2024 9:55amEssential hypertensionacuteApr2024 9:55am Obstructive sleep apneaacuteApril 2024 9:55amSquamous cell carcinoma of oropharynxacuteApril 2024 9:55amCancer associated painacuteMay 2024 2:36pmSquamous cell carcinoma of oropharynxacuteMay 2024 2:36pmThrush, oralacuteMay 2024 2:36pmCancer associated painacuteJuly 2024 7:46am Squamous cell carcinoma of oropharynxacuteJuly 2024 7:46amSquamous cell carcinoma of oropharynxacuteJuly 2024 9:41amTongue canceracuteJuly 2024 10:01am [facility] Work Phone: 1([phone]) 436-396604-24-2025 Evaluation note* Diagnosis Onset Date Resolution Status Admit Date Tongue cancer deletedApril 2024 9:14amCAD (coronary artery disease)acuteApr2024 9:55amCentral sleep apneaacuteApril 2024 9:55amDM (diabetes mellitus)acute Nicole 2024 9:55amEssential hypertensionacuteApril 2024 9:55am Obstructive sleep apneaacuteApril 2024 9:55amSquamous cell carcinoma of oropharynxacuteApril 2024 9:55amCancer associated painacuteMay 2024 2:36pmSquamous cell carcinoma of oropharynxacuteMay 2024 2:36pmThrush, oralacuteMay 2024 2:36pmCancer associated painacuteJuly 2024 7:46am Squamous cell carcinoma of oropharynxacuteJuly 2024 7:46amSquamous cell carcinoma of oropharynxacuteJuly 2024 9:41amSquamous cell carcinoma of oropharynxacuteJuly 2024 10:01am [facility] Work Phone: [phone] [address] Discharge Summary Signed Patient: Jeremie Bennett MR#: [id number] : 1940 Acct:[id number] Age/Sex: 83 / M Adm Date: 5 Loc: 3T Room: [address] [place] [address]: Zeke Brennan MD Copies to: [...] was discharged home stable condition the [facility] with few more days of oral antimicrobial [...] Continuity of Care Document Health Concerns: A [facility] screening has identified you as [...] Strong:Four Ways to Beat the Frailty Risk https://www.[facility] [place].org/health/vrjpqtkx-yul-dyylzzbbue/st bi-uiefin-zoqo- bual-cc-tvde-rdf-eqycfue-dchh Exam Physical Exam Vital Signs: Temp Pulse [...] % (Auto) 75.8, Lymph % (Auto) 9.0, Foster % (Auto) 13.6, Eos % (Auto) 1.0, Baso % (Auto) 0.6, Nucleat RBC Rel Count 0.1, Neut # (Auto) 4.7, Lymph # (Auto) 0.6 L, Foster # (Auto) 0.8, Eos # (Auto) 0.1, [...] % (Auto) 77.0, Lymph % (Auto) 10.5, Foster % (Auto) 11.3, Eos % (Auto) 0.7, Baso % (Auto) 0.5, Nucleat RBC Rel Count 0.2, Neut # (Auto) 5.7, Lymph # (Auto) 0.8 L, Foster # (Auto) 0.8, Eos # (Auto) 0.1, Baso # (Auto) 0.0, Monocyte Dist Width 23.19 H, ESR 42 H, PT 12.9, INR 1.1, Lactic Acid 0.8, C-Reactive Prot, Quant Cancelled 08/20/24 12:20: PHA Creatinine Clear 58.71, Sodium 136, Potassium 3.7, Chloride 104, Carbon Pxntpgk46.4, Anion Gap 10.3, BUN 16, Creatinine 0.85, Est GFR (CKD- EPI) > 60.0, Glucose 106 H, Calcium 8.4 L, Total Bilirubin 0.6, AST 18, ALT 17, Alkaline Phosphatase 66, C-Reactive Prot, Quant 3.3 H, Total Protein 5.9 L, Albumin 3.4 L, Globulin 2.5, Albumin/Globulin Ratio 1.4 Documented By: Zeke Brennan MD 08/21/24 1407 Signed By: 08/21/24 1414 [facility]04-07-2025 [place] [address] Hospitalist Progress Note Signed Patient: Jeremie Bennett MR#: [id number] : 1940 Acct:[id number] Age/Sex: 83 / M Adm Date: 5 Loc: Room: [address] [place] [address] Type: ADM IN Attending Dr: Zeke Brennan [...] care and confirmed it with the re sident/student/CRITICAL POWER TECHNICIAN. This patient presented to the emergency department [...] General: normal to inspection Objective Lab Results 08/21/24:05 08/21/24 04:05 Microbiology Results Microbiology 08/20/24 17:48 [...] spray 08/21/24 09:00 08/21/24 09:02 Fluticasone Propionate [place] 120 [place]/16 Gm Bottle INTRANASAL 08/21/25 08:59 2 spray [...] Drops/2.5 Ml Bottle EYE-BOTH 08/21/25 20:59 QPM PENDING SALE TO [facility] Lidocaine/Prilocaine 1 applic 08/20/24 21:59 Lidocaine-Prilocaine Cr 2.5-2.5% 5 Gm Tube TOPICAL 08/20/25 21:58 ONCE PRN pain Metformin HCl 500 mg 08/21/24 08:00 08/21/24 09:00 Metformin 500 Mg Tablet PO 08/21/25 07:59 500 mg DAILY@0800 PENDING SALE TO [facility] Administration Multi-Ingredient Mouthwash/Gargle 10 ml 08/20/24 [...] Diet: Dental soft diet Documented By: Zeke Brennna MD 08/21/24 1135 Signed By: 08/21/24 1414 08/21/24 1152 [facility]04-07-2025 Consult note Author Yash Thomas [facility] CenterNote Date/TimeApril 2024 11:10[place] [address] Infect. Disease Consult Note Signed Patient: Jeremie Bennett MR#: [id number] : 1940 Acct:[id number] Age/Sex: 83 / M Adm Date: 5 Loc: Room: [address] [place] [address] Type: ADM IN Attending Dr: Zeke Brennan [...] at 10 PM CC: Zeke Brennan MD [facility] Medical History Pacemaker Prostate cancer surgery Neuropathy [...] Heart disease [facility] of stroke [facility] Problem: Diagnosed with Stroke Hypertension Emphysema lung ESRD (end stage renal disease) Sister Cancer [facility] Problem: Diagnosed with Cancer Lymphoma [...] 81 Mg Tab.Chew) 81 mg PO DAILY PENDING SALE TO [facility] Stop: 08/21/25 08:59 Last Admin: 08/21/24 09:01 Dose: 81 mg Atorvastatin Calcium (Atorvastatin 20 Mg Tablet) 20 mg PO QPM PENDING SALE TO [facility] Stop: 08/21/25 20:59 Clopidogrel Bisulfate (Clopidogrel Bisulfate 75 Mg Tablet) 75 mg PO DAILY PENDING SALE TO [facility] Stop: 08/21/25 08:59 Last Admin: 08/21/24 09:00 Dose: 75 mg Dorzolamide HCl (Dorzolamide 2% Op Soln 200 Drops/10 Ml Bottle) 1 drops EYE-BOTH BID PENDING SALE TO [facility] Stop: 08/21/25 08:59 Last Admin: 08/21/24 09:04 Dose: 1 drops Famotidine (Famotidine 20 Mg Tablet) 20 mg PO QPM PENDING SALE TO [facility] Stop: 08/21/25 20:59 Fentanyl (Fentanyl Patch 12 Mcg/Hour Patch.Td72) 12 mcg TRANSDERML Q72HR CINTHIA; Protocol Fluticasone Propionate (Fluticasone Propionate [place] 120 [place]/16 Gm Bottle) 2 spray INTRANASAL QAMSCH Stop: 08/21/25 08:59 Last Admin: 08/21/24 09:02 Dose: 2 spray Ceftriaxone Sodium (Rocephin) 1 gm in 50 mls @ 100 mls/hr IV QHS PENDING SALE TO [facility] Isosorbide Mononitrate (Isosorbide Mononitrate 24hr Er 30 Mg Tab.Er.24h) 30 mg PO QAM PENDING SALE TO [facility] Stop: 08/21/25 08:59 Last Admin: 08/21/24 09:00 Dose: 30 mg Latanoprost (Latanoprost 0.005% Op Soln 50 Drops/2.5 Ml Bottle) 1 drops EYE-BOTH QPM PENDING SALE TO [facility] Stop: 08/21/25 20:59 Lidocaine/Prilocaine (Lidocaine-Prilocaine Cr 2.5-2.5% 5 Gm Tube) 1 applic TOPICAL ONCE PRN PRN Reason: pain Stop: 08/20/25 21:58 Metformin HCl (Metformin 500 Mg Tablet) 500 mg PO DAILY@0800 PENDING SALE TO [facility] Stop: 08/21/25 07:59 Last Admin: 08/21/24 09:00 Dose: 500 mg Multi-Ingredient Mouthwash/Gargle (Magic Mouthwash With Lidocaine) 10 ml PO QIDPRN PRN Reason: mucositis Stop: 08/20/25 22:46 Nystatin (Nystatin Susp 500,000 Unit/5 Ml Udc) 500,000 unit PO QID PENDING SALE TO [facility] Stop: 08/21/25 08:59 Last Admin: 08/21/24 09:01 Dose: 500,000 unit Olanzapine (Olanzapine 2.5 Mg Tablet) 2.5 mg PO BID PENDING SALE TO [facility] Stop: 08/21/25 08:59 Last Admin: 08/21/24 09:00 Dose: 2.5 mg Ondansetron HCl (Ondansetron Odt 4 Mg Tab.Rapdis) 8 mg PO Q8HR PRN PRN Reason: nausea and vomiting Stop: 08/20/25 22:49 Oxycodone HCl (Oxycodone Ir 5 Mg Tablet) 10 mg PO Q4HR PRN PRN Reason: pain Last Admin: 08/21/24 09:01 Dose: 10 mg Pantoprazole Sodium (Pantoprazole 40 Mg Tablet.Dr) 40 mg PO BID PENDING SALE TO [facility] Stop: 08/21/25 08:59 Last Admin: 08/21/24 09:00 Dose: 40 mg Rivaroxaban (Rivaroxaban 10 Mg Tablet) 10 mg PO QHS PENDING SALE TO [facility] Stop: 08/21/25 21:59 Sennosides (Sennosides 8.6 [...] 10 Ml Syringe) 10 ml IV-PUSH Q8H PENDING SALE TO [facility] Stop: 08/20/25 19:44 Last Admin: 08/21/24 [...] <Electronically signed by MD Yash Thomas> 08/21/24 [facility] Work Phone: 1(227) [phone] [place] [address] Infect. Disease Consult Note Signed Patient: Jeremie Bennett MR#: [id number] : 1940 Acct:[id number] Age/Sex: 83 / M Adm Date: 5 Loc: Room: [address] [place] [address] Type: ADM IN Attending Dr: Zeke Brennan [...] at 10 PM CC: Zeke Brennan MD [facility] Medical History Pacemaker Prostate cancer surgery Neuropathy [...] Drops/10 Ml Bottle) 1 drops EYE-BOTH BID PENDING SALE TO [facility] Stop: 08/21/25 08:59 Last Admin: 08/21/24 09:04 Dose: 1 drops Famotidine (Famotidine 20 Mg Tablet) 20 mg PO QPM PENDING SALE TO [facility] Stop: 08/21/25 20:59 Fentanyl (Fentanyl Patch 12 Mcg/Hour Patch.Td72) 12 mcg TRANSDERML Q72HR CINTHIA; Protocol Fluticasone Propionate (Fluticasone Propionate [place]/16 Gm Bottle) 2 [facility] Stop: 08/21/25 08:59 Last Admin: 08/21/24 09:02 Dose: 2 spray Ceftriaxone Sodium (Rocephin) 1 gm in 50 mls @ 100 mls/hr IV QHS PENDING SALE TO [facility] Isosorbide Mononitrate (Isosorbide Mononitrate 24hr Er 30 Mg Tab.Er.24h) 30 mg PO QAM PENDING SALE TO [facility] Stop: 08/21/25 08:59 Last Admin: 08/21/24 09:00 Dose: 30 mg Latanoprost (Latanoprost 0.005% Op Soln 50 Drops/2.5 Ml Bottle) 1 drops EYE-BOTH QPM PENDING SALE TO [facility] Stop: 08/21/25 20:59 Lidocaine/Prilocaine (Lidocaine-Prilocaine Cr 2.5-2.5% 5 Gm Tube) 1 applic TOPICAL ONCE PRN PRN Reason: pain Stop: 08/20/25 21:58 Metformin HCl (Metformin 500 Mg Tablet) 500 mg PO DAILY@0800 PENDING SALE TO [facility] Stop: 08/21/25 07:59 Last Admin: 08/21/24 09:00 Dose: 500 mg Multi-Ingredient Mouthwash/Gargle (Magic Mouthwash With Lidocaine) 10 ml PO QIDPRN PRN Reason: mucositis Stop: 08/20/25 22:46 Nystatin (Nystatin Susp 500,000 Unit/5 Ml Udc) 500,000 unit PO QID CINTHIA Stop: 08/21/25 08:59 Last Admin: 08/21/24 09:01 Dose: 500,000 unit Olanzapine (Olanzapine 2.5 Mg Tablet) 2.5 mg PO BID PENDING SALE TO [facility] Stop: 08/21/25 08:59 Last Admin: 08/21/24 09:00 Dose: 2.5 mg Ondansetron HCl (Ondansetron Odt 4 Mg Tab.Rapdis) 8 mg PO Q8HR PRN PRN Reason: nausea and vomiting Stop: 08/20/25 22:49 Oxycodone HCl (Oxycodone Ir 5 Mg Tablet) 10 mg PO Q4HR PRN PRN Reason: pain Last Admin: 08/21/24 09:01 Dose: 10 mg Pantoprazole Sodium (Pantoprazole 40 Mg Tablet.Dr) 40 mg PO BID PENDING SALE TO [facility] Stop: 08/21/25 08:59 Last Admin: 08/21/24 09:00 Dose: 40 mg Rivaroxaban (Rivaroxaban 10 Mg Tablet) 10 mg PO QHS PENDING SALE TO [facility] Stop: 08/21/25 21:59 Sennosides (Sennosides 8.6 Mg Tablet) 8.6 mg PO BID PRN PRN Reason: constipation Stop: 08/20/25 21:58 Last Admin: 08/21/24 09:00 Dose: 8.6 mg Silver Sulfadiazine (Silver Sulfadiazine 1% Cream 400 Gm Jar) 1 applic TOPICAL BID PENDING SALE TO [facility] Stop: 08/21/25 08:59 Last Admin: 08/21/24 09:07 Dose: 1 applic Sodium Chloride (Sodium Chloride 0.9 % 10 Ml Syringe) 0 ml IV-PUSH PRN PRN PRN Reason: Flush Stop: 08/20/25 16:56 Last Admin: 08/20/24 17:20 Dose: 10 ml Sodium Chloride (Sodium Chloride 0.9 % 10 Ml Syringe) 10 ml IV-PUSH Q8H PENDING SALE TO [facility] Stop: 08/20/25 19:44 Last Admin: 08/21/24 03:06 Dose: Not Given Sotalol HCl (Sotalol 80 Mg Tablet) 40 mg PO BID PENDING SALE TO [facility] Stop: 08/21/25 08:59 Last Admin: 08/21/24 09:01 Dose: 40 mg Tizanidine HCl (Tizanidine 4 Mg Tablet) 4 mg PO QPM PENDING SALE TO [facility] Stop: 08/21/25 20:59 Zonisamide (Zonisamide 25 Mg Capsule) 25 mg PO BID PENDING SALE TO [facility] Stop: 08/21/25 08:59 Last Admin: 08/21/24 [...] MD 08/21/24 1053 Signed By: 08/21/24 1110 [facility]04-07-2025 Radiology Diagnostic study note [facility] Main [place] [address] [place] [address] CT Scan Report Signed Patient: Jeremie Bennett MR#: [id number] : 1940 Acct:[id number] Age/Sex: 83 / M ADM Date: 5 Loc: Room: [address] [place] [address] Type: ADM IN Attending Dr: Jaiden Nance [...] Christian Melton M.D.08/21/2024 5:58 AM Dictation Location: [facility]--20 Transcribed By: [facility] 08/21/24557 Dictated By: Christian Melton DO 08/21/24 0555 Signed By: 08/21/24 0558 [facility]03-26-2025 Progress note Author Debora Wild [facility] CenterNote Date/TimeMarch 2024 10:25[place] [address] Palliative Medicine Encounter Patient: Jeremie Bennett MR#: [id number] : 1940 Acct:[id number] Age/Sex: 83 / M Copies to: RAYSHAWN Engle MD~ HPI Date of Visit Date of Visit: 08/09/2024 Chief Complaint: Jereime is here for one week follow up [...] tablet 81 mg PO DAILY 06/14/24 08/09/24 uurfxji-erhoxkhfzitua-wpouyctr 250 1 tab PO Q4-6H PRN pain [...] Alcohol Substance Abuse Comment: rare alcohol use Ten Sleep Symptom Assessment Scale Pain: throat pain controlled [...] recorder, note dictated by Debora Wild APRN, CRITICAL POWER TECHNICIAN-C ACHPN Dictated By: Debora Wild APRN DD/ 0945 Signed By: <Electronically signed by RAYSHAWN Wild> 08/09/[address] [place] [address] Work Phone: 1(973) 720-993103-26-2025 [place] [address] Palliative Medicine Encounter Patient: Jeremie Bennett MR#: [id number] : 1940 Acct:[id number] Age/Sex: 83 / M Copies to: RAYSHAWN [...] tablet 81 mg PO DAILY 06/14/24 08/09/24 ndkvgyj-javkevkzecart-nrysvudd 250 1 tab PO Q4-6H PRN pain [...] tabs 08/09/24 Is patient having pain?: Yes [facility] Medical History (Updated 08/09/24 @ 09:38 by [...] Alcohol Substance Abuse Comment: rare alcohol use Ten Sleep Symptom Assessment Scale Pain: throat pain controlled [...] recorder, note dictated by Debora Wild APRN, CRITICAL POWER TECHNICIAN-C ACHPN Dictated By: Debora Wild APRN DD/ 0945 Signed By: 08/09/[address] [place], [place] 8044603-12-2025 Progress note Author Maru Ma [facility] CenterNote Date/TimeMarch 2024 12:02[place] [address] Palliative Medicine Encounter Patient: Jeremie Bennett MR#: [id number] : 1940 Acct:[id number] Age/Sex: 83 / M Copies to: DO [...] tablet 81 mg PO DAILY 06/14/24 07/26/24 hqtxpia-pklrgutltwhqw-lyyitvpz 250 1 tab PO Q4-6H PRN pain [...] Heart disease [facility] of stroke [facility]: Diagnosed with Stroke Hypertension Emphysema lung ESRD (end stage renal disease) Sister Cancer [facility]: Diagnosed with Cancer Lymphoma Social History Smoking Status: Former smoker Tobacco Type: cigarettes Substance Use Type: Alcohol Substance Abuse Comment: rare alcohol use Ten Sleep Symptom Assessment Scale See above Exam Exam [...] <Electronically signed by FELLOW Mario El> 07/26/24 [address] [facility] Work Phone: 1(888) 156-976303-12-2025 [place] [address] Palliative Medicine Encounter Patient: Jeremie Bennett MR#: [id number] : 1940 Acct:[id number] Age/Sex: 83 / M Copies to: DO [...] tablet 81 mg PO DAILY 06/14/24 07/26/24 ugenebq-dyajwrvrzexgo-jrkscwve 250 1 tab PO Q4-6H PRN pain [...] Heart disease [facility]: Diagnosed with Stroke Hypertension Emphysema lung ESRD (end stage renal disease) Sister [facility]: Diagnosed with Cancer Lymphoma Social History Smoking Status: Former smoker Tobacco Type: cigarettes Substance Use Type: Alcohol Substance Abuse Comment: rare alcohol use Ten Sleep Symptom Assessment Scale See above Exam Exam [...] 0833 Signed By: 07/26/24 1202 07/26/24 0944 [facility]03-12-2025 Evaluation note* Diagnosis Onset Date Resolution Status Admit Date Squamous cell carcinoma of oropharynx acuteJulch 2024 8:13amCancer associated painacuteMarch 2024 8:22am NauseaacuteMarch 2024 8:22amSquamous cell carcinoma of oropharynxacute July 26, 2024 8:22am [facility] Work Phone: [phone]) 688-231703-12-2025 Evaluation note* Diagnosis Onset Date Resolution Status Admit Date Squamous cell carcinoma of oropharynx acuteMarch 2024 8:13amCancer associated painacuteMarch 2024 8:22am NauseaacuteMarch 2024 8:22amSquamous cell carcinoma of oropharynxacute July 26, 2024 8:22amCancer associated painacuteMarch 2024 7:29am ConstipationacuteMarch 2024 7:29amSquamous cell carcinoma of oropharynx acuteMarch 2024 7:29amThrush, oralacuteMarch 2024 7:29am [facility] Work Phone: 1([phone] 211-691903-12-2025 Evaluation note* Diagnosis Onset Date Resolution Status [...] 7:51amSquamous cell carcinoma of oropharynxacuteMarch 2024 9:23am [facility] Work Phone: 1(198) 654-459403-12-2025 Evaluation note* Diagnosis Onset Date Resolution Status [...] 2024 7:59amSquamous cell carcinoma of oropharynxacuteApr2024 7:59am [facility] Work Phone: 1([phone] 346-871903-12-2025 Evaluation note* Diagnosis Onset Date Resolution Status [...] 7:59amFeveracuteApril 2024 7:35pmImmunosuppressionacuteApril 2024 7:35pmPneumoniaacuteApril 2024 7:35pm [facility] Work Phone: 1([phone]) 889-771303-12-2025 Evaluation note* Diagnosis Onset Date Resolution Status [...] 7:35pmSquamous cell carcinoma of oropharynxacuteApril 2024 7:35pm [facility] Work Phone: 1(647) 463-804803-12-2025 Evaluation note* Diagnosis Onset Date Resolution Status [...] 9:55amSquamous cell carcinoma of oropharynxacuteApril 2024 9:55am [facility] Work Phone: 1(325) 776-926903-12-2025 Evaluation note* Diagnosis Onset Date Resolution Status [...] of oropharynxacuteMay 2024 2:36pmThrush, oralacuteMay 2024 2:36pm [facility] Work Phone: 1(161) 967-462503-05-2025 NoteUTP Cardiovascular Medicine [facility] Patient here for follow-up after his [...] a provider in 3 months. Boy Buitrago APRN-[facility] Cardiovascular MedicineUniversity [facility]als [facility]02-26-2025 [facility]Av[facility] [place] [address] Cancer Center Note Signed Patient: Jeremie Bennett MR#: [id number] : 1940 Acct:[id number] Age/Sex: 83 / M Type: REG AMB [...] by IHC was equivocal. As per the [facility] tumor board recommendation is either doing [...] his week 1 of cisplatin. Labs at [facility] on 07/03/24 revealed hgb 13.3, cr is 1.0. He is having his labs here today.He had his pacemaker placed on 07/10/24 in [place]. 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 He [...] positive squamous cell carcinoma. Tumor board at [facility] in [facility] and the recommended concurrent chemoradiation. [...] with concurrent chemoradiation. Since he lives in [place] he was referred by Dr. Mary Schneider from ENT at [facility] to our medical oncology and radiation oncology at [facility]. He is referred to medical oncology for [...] his week 1 of cisplatin. Labs at [facility] on 07/03/24 revealed hgb 13.3, cr is 1.0. He is having his labs here today.He had his pacemaker placed on 07/10/24 in [place]. Rest of 14 point systems were reviewed [...] PO QAM aspirin 81 mg PO DAILY tbgbjum-aikcecpvdltes-mtsovrpt 250-250-65 mg (Excedrin Migraine) 1 tab PO [...] other concerns voiced at time of intake. [facility] Medical History Medical History (Updated 07/06/24 @ [...] stage renal disease) [facility]: Diagnosed with Cancer Lymphoma [...] MD DD/ 0837 Signed By: 07/12/24 0920 [facility]02-24-2025 NotePACEMAKER GENERATOR REPLACEMENT PROCEDURE NOTE [...] x 2 weeks Stacey Patel MD Cardiac ElectrophysiologyUniversity Hospitals [facility]02-20-2025 Progress note Author Debora Wild [facility] CenterNote Date/TimeFebruary 2024 11:40am [place] [address] Palliative Medicine Encounter Patient: Jeremie Bennett MR#: [id number] : 1940 Acct:[id number] Age/Sex: 83 / M Copies to: RAYSHAWN [...] tablet 81 mg PO DAILY 06/14/24 06/22/24 jcjjqxi-humlaxexxkllr-pciuzxeq 250 1 tab PO Q4-6H PRN pain [...] (psyllium husk)) Is patient having pain?: No PMFSH Medical History (Updated 07/06/24 @ 09:33 by [...] Alcohol Substance Abuse Comment: rare alcohol use Ten Sleep Symptom Assessment Scale Pain: intermittent scratchy throat/ [...] mins #about Jeremie: Kaya moved her from [place] collects loving Exam Exam General - A&O, accompanied by [...] recorder, note dictated by Debora Wild APRN, CRITICAL POWER TECHNICIANRosemaryC ACHPN Dictated By: Debora Wild APRN DD/ 0858 Signed By: <Electronically signed by RAYSHAWN Wild> 07/06/24 1140 [facility] Work Phone: 1(349) 870-511602-20-2025 [place] [address] Palliative Medicine Encounter Patient: Jeremie Bennett MR#: [id number] : 1940 Acct:[id number] Age/Sex: 83 / M Copies to: RAYSHAWN [...] tablet 81 mg PO DAILY 06/14/24 06/22/24 ivbsyen-ekcpppsvnmgdd-qyuvmktm 250 1 tab PO Q4-6H PRN pain [...] (psyllium husk)) Is patient having pain?: No PMFSH Medical History (Updated 07/06/24 @ 09:33 by [...] Alcohol Substance Abuse Comment: rare alcohol use Ten Sleep Symptom Assessment Scale Pain: intermittent scratchy throat/ [...] mins #about Jeremie: Kaya moved her from [place] collect [employer] Exam Exam General - A&O, accompanied by [...] APRN DD/ 0858 Signed By: 07/06/24 1140 [facility]02-18-2025 NoteNurse Consultation Note Reason for [...] PRN, 1 refills fluticasone Nasal 0.05 mg/inh [place], See Instructions furosemide 20 mg Tab, 20 [...] influenza virus vaccine, inactivated 04/12/2023 Recorded SARSCoV2 mRNA(xdsqgcssi-revt-pqvgeb) vac 11/25/2021 Recorded SARS-CoV-2 (COVID-19) mRNA BNT-162b2 vax 03/06/2021 Recorded 2022-11-03: TPV80 influenza virus vaccine, inactivated 02/18/2021 Recorded SARS-CoV-2 (COVID-19) mRNA BNT-162b2 vax 06/27/2020 Recorded SARS-CoV-2 (COVID-19) Ad26 vaccine 06/27/2020 Recorded SARS-CoV-2 (COVID-19) mRNA BNT-162b2 vax 06/06/2020 Recorded SARS-CoV-2 (COVID-19) Ad26 vaccine 06/06/2020 Recorded influenza virus vaccine, inactivated 02/14/2020 Recorded influenza, unspecified formulation 01/22/2018 Recorded pneumococcal 13-valent vaccine 01/30/[facility] NoteNurse Consultation Note Reason for [...] PRN, 1 refills fluticasone Nasal 0.05 mg/inh [place], See Instructions furosemide 20 mg Tab, 20 [...] influenza virus vaccine, inactivated 04/12/2023 Recorded SARSCoV2 mRNA(bmbpxlkde-lnyx-kovlgm) vac 11/25/2021 Recorded SARS-CoV-2 (COVID-19) mRNA BNT-162b2 vax 03/06/2021 Recorded 2022-11-03: TPV80 influenza virus vaccine, inactivated 02/18/2021 Recorded SARS-CoV-2 (COVID-19) mRNA BNT-162b2 vax 06/27/2020 Recorded SARS-CoV-2 (COVID-19) Ad26 vaccine 06/27/2020 Recorded SARS-CoV-2 (COVID-19) mRNA BNT-162b2 vax 06/06/2020 Recorded SARS-CoV-2 (COVID-19) Ad26 vaccine 06/06/2020 Recorded influenza virus vaccine, inactivated 02/14/2020 Recorded influenza, unspecified formulation 01/22/2018 Recorded pneumococcal 13-valent vaccine 01/30/2014 [facility] History of Present illness Narrative* LINWOOD Morgan - 06/23/2024 4:00 PM EST History: Patient was referred for an audiological evaluation. A baseline hearing exam was recommended prior to chemo treatment. Patient sees an ENT at [facility]. Patient is aware of hearing loss, wearing [...] function Impressions: Results to Dr. Faustin at [facility] per patient. 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) 01/27/2024 Migraine headache ([facility]) Mixed incontinence 01/27/2024 Other specified disorders of synovium, right ankle and foot Pain management Pain of upper abdomen 04/03/2022 Paronychia of great toe bilateral Peptic ulcer 04/03/2022 Personal history of other medical treatment 04/2018 body map scanned in for biopsies and trtm Prostate cancer ([facility]) Right flank pain 04/03/2022 Sinus tarsi syndrome of right foot Sleep apnea Toe pain, right Type 2 diabetes mellitus with diabetic neuropathy ([facility]) Ventricular tachycardia ([facility]) Social History Tobacco Use Smoking status: [...] 2005 ablation OTHER SURGICAL HISTORY 2007 sphincterotomy [place] CHOLECYSTECTOMY 02/2020 Laparoscopic Cholecystectomy - [place] IMPLANT ARTIFICIAL SPHINCTER 2017 PROSTATE 2000 TONSILLECTOMY [...] placed on the right. documented in this encounterResearch Medical Center-Brookside [id number] Progress note Author Talib Faustin [facility] CenterNote Date/TimeJanuary 2024 11:06am [facility] [place] [address] Cancer Center Note Signed Patient: Jeremie Bennett MR#: [id number] : 1940 Acct:[id number] Age/Sex: 83 / M Type: REG AMB [...] by IHC was equivocal. 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 He [...] positive squamous cell carcinoma. Tumor board at [facility] in [place] and the recommended concurrent [...] with concurrent chemoradiation. Since he lives in [place] he was referred by Dr. Mary Schneider from ENT at [facility] to our medical oncology and radiation oncology at [facility]. He is referred to medical oncology for [...] PO DAILY aspirin 81 mg PO DAILY oitrxkj-vadiujxzttoej-ezfhlbej 250-250-65 mg (Excedrin Migraine) 1 tab PO [...] card, magnet, caregiver resource list, [facility] nutrition guide, and cancer rehabilitation pamphlet [...] to have pace maker replaced 07/10/2024 at [facility]. [facility] Medical History Medical History (Updated 06/14/24 @ [...] emphysema Hypertension Heart disease [facility]: Diagnosed with Cancer Social [...] by Talib Faustin MD> 06/14/24 1106 [facility] Work Phone: 1(324) 183-135801-29-2025 Evaluation note* Diagnosis Onset Date Resolution Status Admit Date Squamous cell carcinoma of oropharynx acuteJanuary 2024 9:25amTongue canceracuteJanuary 2024 9:25am Squamous cell carcinoma of oropharynxacuteJanuary 2024 10:28am [facility] Work Phone: [phone] 207-711301-29-2025 Evaluation note* Diagnosis Onset Date Resolution Status Admit Date Squamous cell carcinoma of oropharynx acuteJanuary 2024 9:25amTongue canceracuteJanuary 2024 9:25am Squamous cell carcinoma of oropharynxacuteJanuary 2024 10:28amEncounter for palliative careacuteFebruary 2024 8:00amSquamous cell carcinoma of oropharynxacuteFebruary 2024 8:00am [facility] Work Phone: 1([phone]) 112-911401-29-2025 Evaluation note* Diagnosis Onset Date Resolution Status Admit Date Squamous cell carcinoma of oropharynx acuteJanuary 2024 9:25amTongue canceracuteJanuary 2024 9:25am Squamous cell carcinoma of oropharynxacuteJanuary 2024 10:28amEncounter for palliative careacuteFebruary 2024 8:00amSquamous cell carcinoma of oropharynxacuteFebruary 2024 8:00amCancer associated painacuteFebruary 2024 7:36amNauseaacuteFebruary 2024 7:36amSquamous cell carcinoma of oropharynxacuteFebruary 2024 7:36amSquamous cell carcinoma of oropharynx acuteFebruary 2024 8:29amTongue canceracuteFebruary 2024 8:29am [facility] Work Phone: 1(223) 272-262101-29-2025 Progress [facility] [place] [address] Cancer Center Note Signed Patient: Jeremie Bennett MR#: [id number] : 1940 Acct:[id number] Age/Sex: 83 / M Type: REG AMB [...] by IHC was equivocal. 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 He [...] positive squamous cell carcinoma. Tumor board at [facility] in [facility] and the recommended concurrent chemoradiation. [...] with concurrent chemoradiation. Since he lives in [place] he was referred by Dr. Mary Schneider from ENT at [facility] to our medical oncology and radiation oncology at [facility]. He is referred to medical oncology for [...] PO DAILY aspirin 81 mg PO DAILY zqqrlsj-pqgodomvgnaro-tlfptsyt 250-250-65 mg (Excedrin Migraine) 1 tab PO [...] card, magnet, caregiver resource list, [facility] nutrition guide, and cancer rehabilitation pamphlet [...] to have pace maker replaced 07/10/2024 at [facility]. [facility] Medical History Medical History (Updated 06/14/24 @ [...] MD DD/ 0953 Signed By: 06/14/24 1106 [facility]01-20-2025 Hospital Discharge instructions* Discharge Instructions* [...] questions related to your procedure: Please call [phone] between the hours of 7:00am-5:00pm Wednesday through Wednesday. Please call [phone] after 5:00pm and on weekends and holidays. In the event of an emergency call 911 or go to your nearest emergency room. documented in this [facility] Work Phone: 1([phone]) 617-564601-20-2025 Miscellaneous Notes* Post-Procedure Note - Juan Albright [...] PACS Procedure performed by: Juan Albright MD Fire Extinguisher Technician(s): Dr. Gaby Perez MD Estimated Blood [...] Albright MD, PGY-6 Interventional Radiology IR pager: [phone] NON-Urgent occupational health coordinator weekends and after hours weekdays (5pm - 5am) IR pager: [phone] Urgent & emergent occupational health coordinator weekends and after hours weekdays (5pm-7am) IR pager: [phone] * Pre-Procedure Note - Juan Albright MD [...] by mouth once daily., Disp: , Rfl: cgnmxldgux-mkdctmmtdgcbc-fhwm 50-325-40 mg tablet, Take 1 tablet by [...] been discussed with the patient and/or their physician relations representative. All questions answered and they agree to proceed. Juan Albright MD, PGY-6 Vascular & Interventional Radiology IR pager: [phone] NON-Urgent occupational health coordinator weekends and after hours weekdays (5pm - 5am) IR pager: [phone] Urgent & emergent occupational health coordinator weekends and after hours weekdays (5pm-7am) IR pager: [phone] [facility] Work Phone: 1(463) 674-127301-20-2025 Note* Post-Procedure Note - Juan Albright MD [...] PACS Procedure performed by: Juan Albright MD Fire Extinguisher Technician(s): Dr. Gaby Perez MD Estimated Blood [...] Albright MD, PGY-6 Interventional Radiology IR pager: [phone] NON-Urgent occupational health coordinator weekends and after hours weekdays (5pm - 5am) IR pager: [phone] Urgent & emergent occupational health coordinator weekends and after hours weekdays (5pm-7am) IR pager: [phone] [facility] Work Phone: 1(733) 147-419101-20-2025 Note* Pre-Procedure Note - Juan Albright MD [...] by mouth once daily., Disp: , Rfl: scpxmieivd-qgpprokkumhgf-fism 50-325-40 mg tablet, Take 1 tablet by [...] been discussed with the patient and/or their physician relations representative. All questions answered and they agree to proceed. Juan Albright MD, PGY-6 Vascular & Interventional Radiology IR pager: [phone] NON-Urgent occupational health coordinator weekends and after hours weekdays (5pm - 5am) IR pager: [phone] Urgent & emergent occupational health coordinator weekends and after hours weekdays (5pm-7am) IR pager: [phone] [facility] Work Phone: 1(225) 264-532401-14-2025 History of Present illness Narrative* Mary Schneider MD - 05/30/2024 11:45 AM EST HEAD AND NECK SURGERY FOLLOW UP [facility] Referring Provider: Dr. Ham HPI [...] lymph node Procedure Note: Diagnostic Flexible Laryngoscopy (45209) Indication: patient symptoms requiring evaluation of pharyngeal/laryngeal/hypopharyngeal [...] proceed with concurrent chemoradiation. [place], referrals to med onc and rad onc placed today to be setup locally at [facility]. I have also reached out to Dr Gray - He will need iris dx testing done prior to starting treatment - I will follow up the biopsy and call him with results - I will see him after treatment for cancer surveillance Mary Schneider MD 24 modifier used due to extensive discussion and coordination of cancer treatment documented in [facility] encounterFlower Hospital Work Phone: 1(985) 444-217012-26-2024 Hospital Discharge instructions* Discharge Instructions* Jessica Carreon [...] to your nearest ED. 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] Procedures Direct Laryngoscopy 54901 - [place] LARYNGOSCOPY W/WO TRACHEOSCOPY DX EXCEPT Bronchoscopy 79434 - [place] BRNCHSC INCL FLUOR GDNCE DX W/CELL WASHG SPX Esophagoscopy 75414 - [place] ESOPHAGOSCOPY FLEXIBLE TRANSORAL DIAGNOSTIC Surgeons Panel 1: * Mary Schneider - Primary Panel 2: * Mary Schneider - Primary Resident/Fellow/Other Fire Extinguisher Technician: Surgeons and Role: Panel 1: * Riana Vela PA-C - Resident - Assisting Staff: General Utility Machine Operator: Jameel Camargo Person: Simon Camargo Person: Reggie Anesthesia Staff: Anesthesiologist: Gabo Munoz MD Shotblaster: Candice Aceves MD; Delvis Santana MD Procedure [...] scrubbed for the entire procedure. 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] Procedures Direct Laryngoscopy 65041 - SD LARYNGOSCOPY W/WO TRACHEOSCOPY DX EXCEPT Bronchoscopy 40194 - SD [facility] INCL FLUOR GDNCE DX W/CELL WASHG SPX Esophagoscopy 17943 - [place] ESOPHAGOSCOPY FLEXIBLE TRANSORAL DIAGNOSTIC Surgeons Panel 1: * Mary Schneider - Primary Panel 2: * Mary Schneider - Primary Resident/Fellow/Other Fire Extinguisher Technician: Surgeons and Role: Panel 1: * Riana Vela PA-C - Resident - Assisting Staff: General Utility Machine Operator: Jameel Camargo Person: Simon Camargo Person: Reggie Anesthesia Staff: Anesthesiologist: Gabo Munoz MD Shotblaster: Candice Aceves MD; Delvis Santana MD Procedure [...] entire procedure. Mary Schneider documented in this [facility] Work Phone: 1(799) 177-425312-26-2024 History and physical note* Jessica Carreon MD [...] Schneider MD at 05/11/2024 6:34 AM EST [facility] Work Phone: 1(138) 304-331912-26-2024 History and physical note* Jessica Carreon MD [...] 05/11/2024 6:34 AM EST documented in this [facility] Work Phone: 1(113) 756-395112-24-2024 History of Present illness Narrative* Mary Guevara - 05/09/2024 10:02 AM EST Pharmacy Medication History Review Jeremie Bennett is a 83 y.o. male who is planned to be admitted for Malignant neoplasm of floor of mouth. Pharmacy called the patient prior to their scheduled procedure and reviewed the patient's wdkif-gx-cqstciepx medications for accuracy. Medications ADDED: none Medications [...] used to complete the med history include: [facility] Pharmacy dispense history Patient interview Chart Review Care Everywhere Below are additional concerns with the patient's DROP WIRE HANGER list. Patient states they are taking #1 tablet of metformin XR 500mg once daily. L.F. 02/24/24 #200/100d (prescription states #1BID) Patient states they are taking #1 tablet of rosuvastatin 10mg daily. L.F. 05/31/23 #90/90d. There is no recent fill history to confirm Mary Guevara [facility] Please reach out via Secure Chat for questions documented in this encounterF[facility] Hospital Work Phone: 1(465) 802-249112-10-2024 NoteUT Electrophysiology Consult Note [place] [facility] - [facility] Reason for visit: Device at [facility] HPI: Jeremie Bennett is a 83 y.o. year old with past medical history of hypertension, hyperlipidemia CAD was noted to have a pacemaker placed by Dr. Shi for ?SND which is approaching [facility]. He has previously been seen by and [...] ECG Bradycardia Coronary artery disease Diabetes mellitus ([facility]/HCC) Heart valve disease Hyperlipidemia VT (ventricular tachycardia) ([facility]) PSH: Past Surgical History: Procedure Laterality Date ABLATION OF DYSRHYTHMIC FOCUS CARDIAC CATHETERIZATION INSERT / REPLACE / REMOVE PACEMAKER SH: Social Determinants of Health Tobacco Use: Medium Risk (05/11/2024) [facility] Patient History Smoking Tobacco Use: Former [...] Depression: Not at risk (04/07/2024) [facility] from [facility] PHQ-2 Patient Health Questionnaire-2 Score: 0 [...] TSH , T3 TO (more content not included)...[facility]12-02-2024 NotePatient Education Nutrition BMI for [...] for Disease Control and Prevention: cdc.gov ??? [employer] Heart Association: heart.org ??? National Heart, Lung, and Blood [place]: nhlbi.nih.gov This information is not intended to replace advice given to you by your health care provider. Make sure you discuss any questions you have with your health care provider. Document Revised: 01/21/2023 Document Reviewed: 01/14/2023 [employer]aluate Patient Education ? 2023 [employer] 04-07-2024 History of Present illness Narrative* Mary Schneider MD - 04/07/2024 10:45 AM EST HEAD AND NECK SURGERY CONSULT [facility] Referring Provider: Dr. Ham HPI [...] lymph node Procedure Note: Diagnostic Flexible Laryngoscopy (12185) Indication: patient symptoms requiring evaluation of pharyngeal/laryngeal/hypopharyngeal [...] for this, has a pacemaker and seeing line maintainer soon. Will follow up biopsy and call him with the results Mary Schneider MD documented in this [facility] Work Phone: [phone]) 376-213811-13-2024 History of Present illness Narrative* Luc Ham MD - 03/29/2024 10:20 AM EST Subjective Patient ID: Jeremie Bennett is a 83 y.o. 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 BMI 29.0-29.9,adult 01/27/2024 Cardiac dysrhythmia 04/03/2022 Ventricular tachycardia ([facility]) 01/27/2024 Carpal tunnel syndrome, left 01/27/2024 Carpal tunnel syndrome, right 01/27/2024 Cervical lymphadenopathy 01/27/2024 Spondylosis of cervical spine 01/27/2024 Cervical vertebral fusion 04/03/2022 Spondylosis of lumbar spine 01/27/2024 Chronic venous insufficiency 01/27/2024 Colon polyp 01/27/2024 Type 2 diabetes mellitus ([facility]) 01/27/2024 Type 2 diabetes mellitus without complication, without long-term current use of insulin ([facility]) 04/14/2023 Diabetic autonomic neuropathy associated with type 2 diabetes mellitus ([facility]) 04/14/2023 Diabetic peripheral neuropathy associated with type 2 diabetes mellitus ([facility]) 01/27/2024 Diverticulosis 01/27/2024 Dysphagia 04/14/2023 Essential hypertension ([facility]) 04/03/2022 Excessive daytime sleepiness 01/27/2024 FH: stomach cancer 04/14/2023 Chronic GERD 01/27/2024 GERD with apnea 01/27/2024 Glaucoma ([facility]) 04/03/2022 Hemorrhoids 01/27/2024 History of colon polyps 01/27/2024 History of malignant neoplasm of prostate 04/03/2022 [place] (hard of hearing) 04/03/2022 Hypercholesterolemia ([facility]) 04/03/2022 Hyperlipidemia ([facility]) 04/03/2022 Insomnia 04/03/2022 Internal derangement of right knee 01/27/2024 Irregular bowel habits 04/14/2023 Lump on neck 04/14/2023 Migraines ([facility]) 04/03/2022 Aortic valve regurgitation 04/26/2019 Mitral valve regurgitation 04/26/2019 Neuropathy 04/03/2022 NPH (normal pressure hydrocephalus) ([facility]) 04/03/2022 Central sleep apnea 01/27/2024 Obstructive sleep apnea 04/03/2022 Osteoarthritis 04/03/2022 Osteoarthritis of carpometacarpal (CMC) joint of left thumb 01/27/2024 Osteochondritis dissecans of right ankle 01/27/2024 Other specified disorders of synovium, right ankle and foot 01/27/2024 Pain in right ankle and joints of right foot 01/27/2024 Pancreatic cyst ([facility]) 04/14/2023 Paresthesia of both hands 01/27/2024 Edema of lower extremity 04/26/2019 Polyneuropathy associated with underlying disease ([facility]) 01/27/2024 Presence of cardiac pacemaker 03/14/2021 Prostate cancer ([facility]) 04/03/2022 Prostatitis 04/14/2023 Skin cancer 04/03/2022 Swollen lymph nodes 04/14/2023 Thoracic aortic ectasia ([facility]) 01/27/2024 Vitamin D deficiency 04/03/2022 Resolved Ambulatory Problems Diagnosis Date Noted Bloating 01/27/2024 Cellulitis of toe of left foot 01/27/2024 Cellulitis of toe of right foot 01/27/2024 Chest wall pain 04/03/2022 Gallstones 04/03/2022 COVID-19 11/10/2022 Entrapment of left ulnar nerve 01/27/2024 Entrapment of right ulnar nerve 01/27/2024 Fecal soiling 04/03/2022 Fecal urgency 04/14/2023 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 Lower abdominal pain 04/03/2022 Pain [...] Diverticulitis GERD (gastroesophageal reflux disease) HTN (hypertension) ([facility]) Migraine headache ([facility]) Pain management Paronychia of great toe [...] 2005 ablation OTHER SURGICAL HISTORY 2007 sphincterotomy [place] CHOLECYSTECTOMY 02/2020 Laparoscopic Cholecystectomy - [place] IMPLANT ARTIFICIAL SPHINCTER 2017 PROSTATE 2000 TONSILLECTOMY 1970 Allergies Allergen Reactions Niacin Itching and Unknown Wound Dressing Adhesive Unknown Current Outpatient Medications on File Prior to Visit Medication Sig Dispense Refill amLODIPine (Norvasc) 5 MG tablet Take 5 mg by mouth in the morning. aspirin 81 MG EC tablet Take 81 mg by mouth in the morning. kazzaojsbe-diyhuwojgavyh-usmzbsqz 50-325-40 MG tablet Take 1 tablet by [...] completed for surveillance exams. documented in this encounterResearch Medical Center-Brookside [id number] History of Present illness Narrative* Kandi Rodriguez, [...] PATIENT PRESENTS WITH AN IMPLANTABLE OR ATTACHED RIB CHOPPER: No CREATININE: No results found for: CREAT [...] 1003 PATIENT DISCHARGED TO: Ambulatory patient, left [place] department area. Is this a therapy: No A Diagnostic radioactive procedure has taken place, with no further precautions necessary other than routine body substance precautions. More information regarding radiation safety can be found usingthis link: [email or web address] SIGNATURE: RT Rodriguez (R) PATIENT NAME: Jeremie Bennett DATE: March 27, 2024 TIME: 10:14 AM PAGER/CONTACT #: documented in this encounter[facility]24 NoteHNO ID: [id number] Author: KANDI RODRIGUEZ RT (R) Service: ? 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 BMI 29.0-29.9,adult 01/27/2024 Cardiac dysrhythmia 04/03/2022 Ventricular tachycardia ([facility]) 01/27/2024 Carpal tunnel syndrome, left 01/27/2024 Carpal tunnel syndrome, right 01/27/2024 Cervical lymphadenopathy 01/27/2024 Spondylosis of cervical spine 01/27/2024 Cervical vertebral fusion 04/03/2022 Spondylosis of lumbar spine 01/27/2024 Chronic venous insufficiency 01/27/2024 Colon polyp 01/27/2024 Type 2 diabetes mellitus ([facility]) 01/27/2024 Type 2 diabetes mellitus without complication, without long-term current use of insulin ([facility]) 04/14/2023 Diabetic autonomic neuropathy associated with type 2 diabetes mellitus ([facility]) 04/14/2023 Diabetic peripheral neuropathy associated with type 2 diabetes mellitus ([facility]) 01/27/2024 Diverticulosis 01/27/2024 Dysphagia 04/14/2023 Essential hypertension ([facility]) 04/03/2022 Excessive daytime sleepiness 01/27/2024 FH: stomach cancer 04/14/2023 Chronic GERD 01/27/2024 GERD with apnea 01/27/2024 Glaucoma ([facility]) 04/03/2022 Hemorrhoids 01/27/2024 History of colon polyps 01/27/2024 History of malignant neoplasm of prostate 04/03/2022 [place] (hard of hearing) 04/03/2022 Hypercholesterolemia ([facility]) 04/03/2022 Hyperlipidemia ([facility]) 04/03/2022 Insomnia 04/03/2022 Internal derangement of right knee 01/27/2024 Irregular bowel habits 04/14/2023 Lump on neck 04/14/2023 Migraines ([facility]) 04/03/2022 Aortic valve regurgitation 04/26/2019 Mitral valve regurgitation 04/26/2019 Neuropathy 04/03/2022 NPH (normal pressure hydrocephalus) ([facility]) 04/03/2022 Central sleep apnea 01/27/2024 Obstructive sleep apnea 04/03/2022 Osteoarthritis 04/03/2022 Osteoarthritis of carpometacarpal (CMC) joint of left thumb 01/27/2024 Osteochondritis dissecans of right ankle 01/27/2024 Other specified disorders of synovium, right ankle and foot 01/27/2024 Pain in right ankle and joints of right foot 01/27/2024 Pancreatic cyst ([facility]) 04/14/2023 Paresthesia of both hands 01/27/2024 Edema of lower extremity 04/26/2019 Polyneuropathy associated with underlying disease ([facility]) 01/27/2024 Presence of cardiac pacemaker 03/14/2021 Prostate cancer ([facility]) 04/03/2022 Prostatitis 04/14/2023 Skin cancer 04/03/2022 Swollen lymph nodes 04/14/2023 Thoracic aortic ectasia ([facility]) 01/27/2024 Vitamin D deficiency 04/03/2022 Resolved Ambulatory Problems Diagnosis Date Noted Bloating 01/27/2024 Cellulitis of toe of left foot 01/27/2024 Cellulitis of toe of right foot 01/27/2024 Chest wall pain 04/03/2022 Gallstones 04/03/2022 COVID-19 11/10/2022 Entrapment of left ulnar nerve 01/27/2024 Entrapment of right ulnar nerve 01/27/2024 Fecal soiling 04/03/2022 Fecal urgency 04/14/2023 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 Lower abdominal pain 04/03/2022 Pain [...] Diverticulitis GERD (gastroesophageal reflux disease) HTN (hypertension) ([facility]) Migraine headache ([facility]) Pain management Paronychia of great toe [...] 2005 ablation OTHER SURGICAL HISTORY 2007 sphincterotomy [place] CHOLECYSTECTOMY 02/2020 Laparoscopic Cholecystectomy - [place] IMPLANT ARTIFICIAL SPHINCTER 2017 PROSTATE 2000 TONSILLECTOMY 1970 Allergies Allergen Reactions Niacin Itching and Unknown Wound Dressing Adhesive Unknown Current Outpatient Medications on File Prior to Visit Medication Sig Dispense Refill amLODIPine (Norvasc) 5 MG tablet Take 5 mg by mouth in the morning. aspirin 81 MG EC tablet Take 81 mg by mouth in the morning. exfrriyfdk-tffvypnomxfha-ahzuvnny 50-325-40 MG tablet Take 1 tablet by [...] suspicious for the primary documented in this [facility]10-21-2024 Telephone encounter Note* Telephone Encounter - Antoinette Ham - 03/06/2024 11:18 AM EDT Pt is scheduled for 03/08/[address] Ham[address] [facility] [id number] Miscellaneous Notes* Telephone Encounter - Antoinette Ham - 03/06/2024 11:18 AM EDT Pt is scheduled for 03/08/[address] Ham. * Telephone Encounter - Luc Ham MD - 03/06/2024 10:18 AM EDT Move up pt's appt documented in this encounterResearch Medical Center-Brookside [id number] Telephone encounter Note* Telephone Encounter - Luc Ham MD - 03/06/2024 10:18 AM EDT Move up pt's appt [facility] Work Phone: 1([phone] 381-201210-02-2024 History of Present illness Narrative* Luc Ham [...] Diagnosis Date Noted Arteriosclerosis of coronary artery ([facility]) 01/20/2019 Arthritis of ankle, right 01/27/2024 Arthritis of carpometacarpal (CMC) joint of left thumb 01/27/2024 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 BMI 29.0-29.9,adult 01/27/2024 Cardiac dysrhythmia 04/03/2022 Ventricular tachycardia ([facility]) 01/27/2024 Carpal tunnel syndrome, left 01/27/2024 Carpal tunnel syndrome, right 01/27/2024 Cervical lymphadenopathy 01/27/2024 Spondylosis of cervical spine 01/27/2024 Cervical vertebral fusion 04/03/2022 Spondylosis of lumbar spine 01/27/2024 Chronic venous insufficiency 01/27/2024 Colon polyp 01/27/2024 Type 2 diabetes mellitus ([facility]) 01/27/2024 Type 2 diabetes mellitus without complication, without long-term current use of insulin ([facility]) 04/14/2023 Diabetic autonomic neuropathy associated with type 2 diabetes mellitus ([facility]) 04/14/2023 Diabetic peripheral neuropathy associated with type 2 diabetes mellitus ([facility]) 01/27/2024 Diverticulosis 01/27/2024 Dysphagia 04/14/2023 Essential hypertension ([facility]) 04/03/2022 Excessive daytime sleepiness 01/27/2024 FH: stomach cancer 04/14/2023 Chronic GERD 01/27/2024 GERD with apnea 01/27/2024 Glaucoma ([facility]) 04/03/2022 Hemorrhoids 01/27/2024 History of colon polyps 01/27/2024 History of malignant neoplasm of prostate 04/03/2022 [place] (hard of hearing) 04/03/2022 Hypercholesterolemia ([facility]) 04/03/2022 Hyperlipidemia ([facility]) 04/03/2022 Insomnia 04/03/2022 Internal derangement of right knee 01/27/2024 Irregular bowel habits 04/14/2023 Lump on neck 04/14/2023 Migraines ([facility]) 04/03/2022 Aortic valve regurgitation 04/26/2019 Mitral valve regurgitation 04/26/2019 Neuropathy 04/03/2022 NPH (normal pressure hydrocephalus) ([facility]) 04/03/2022 Central sleep apnea 01/27/2024 Obstructive sleep apnea 04/03/2022 Osteoarthritis 04/03/2022 Osteoarthritis of carpometacarpal (CMC) joint of left thumb 01/27/2024 Osteochondritis dissecans of right ankle 01/27/2024 Other specified disorders of synovium, right ankle and foot 01/27/2024 Pain in right ankle and joints of right foot 01/27/2024 Pancreatic cyst ([facility]) 04/14/2023 Paresthesia of both hands 01/27/2024 Edema of lower extremity 04/26/2019 Polyneuropathy associated with underlying disease ([facility]) 01/27/2024 Presence of cardiac pacemaker 03/14/2021 Prostate cancer ([facility]) 04/03/2022 Prostatitis 04/14/2023 Skin cancer 04/03/2022 Swollen lymph nodes 04/14/2023 Thoracic aortic ectasia ([facility]) 01/27/2024 Vitamin D deficiency 04/03/2022 Resolved Ambulatory Problems Diagnosis Date Noted Bloating 01/27/2024 Cellulitis of toe of left foot 01/27/2024 Cellulitis of toe of right foot 01/27/2024 Chest wall pain 04/03/2022 Gallstones 04/03/2022 COVID-19 11/10/2022 Entrapment of left ulnar nerve 01/27/2024 Entrapment of right ulnar nerve 01/27/2024 Fecal soiling 04/03/2022 Fecal urgency 04/14/2023 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 Lower abdominal pain 04/03/2022 Pain [...] Diverticulitis GERD (gastroesophageal reflux disease) HTN (hypertension) ([facility]) Migraine headache ([facility]) Pain management Paronychia of great toe Personal history of other medical treatment 04/2018 Sinus tarsi syndrome of right foot Sleep apnea Toe pain, right Type 2 diabetes mellitus with diabetic neuropathy ([facility]) Past Surgical History: Procedure Laterality Date CARDIAC CATHETERIZATION 08/30/2019 CATARACT EXTRACTION Bilateral CERVICAL FUSION 2016 C3-C4-C5 CHOLECYSTECTOMY HERNIA REPAIR 2002 INSERT / REPLACE / REMOVE PACEMAKER 2015 pacemaker insertion OTHER SURGICAL HISTORY 2004 ablation OTHER SURGICAL HISTORY 2007 sphincterotomy SD CHOLECYSTECTOMY 02/2020 Laparoscopic Cholecystectomy - [place] SD IMPLANT ARTIFICIAL SPHINCTER 2017 PROSTATE 2000 TONSILLECTOMY 1970 Allergies Allergen Reactions Niacin Itching and Unknown Wound Dressing Adhesive Unknown Current Outpatient Medications on File Prior to Visit Medication Sig Dispense Refill amLODIPine (Norvasc) 5 MG tablet Take 5 mg by mouth in the morning. aspirin 81 MG EC tablet Take 81 mg by mouth in the morning. 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 Robins in [place] -he is following up with them next [...] Oral, Daily aspirin 81 mg, Oral, Daily anukorhqok-ntrowfwbbcuta-rbdtvlok 50-325-40 MG tablet 1 tablet, Oral, Every [...] 2005 ablation OTHER SURGICAL HISTORY 2007 sphincterotomy [place] CHOLECYSTECTOMY 02/2020 Laparoscopic Cholecystectomy - [place] SD IMPLANT ARTIFICIAL SPHINCTER 2017 PROSTATE 2000 TONSILLECTOMY [...] 2+ 2+ Patellar 2+ 2+ Coordination Right: Kdeimv-wv-bcay normal.Left: Zjxjof-tm-anga normal. Gait Casual gait is normal including [...] up in 6 months documented in this encounterResearch Medical Center-Brookside [id number] Telephone encounter Note* Telephone Encounter - Carlitos Beckman - 02/07/2024 9:29 AM EDT Images from the original note were not included. IPMN surveillance. Review OSH images and advise please [facility] Pancreatography 11/09/2023 [facility]09-23-[facility] Miscellaneous Notes* Telephone Encounter - Carlitos Beckman - 02/07/2024 9:29 AM EDT Images from the original note were not included. IPMN surveillance. Review OSH images and advise please Chacho Palus MRI [facility] Pancreatography 11/09/2023 * Telephone Encounter [...] and it was completed in 12/2023 at [facility]. Our office will request results for Dr. Pringle's review. Follow up will be determined upon Dr. Pringle's review of results. documented in this encounterW[facility]09-20-2024 Telephone encounter Note * Telephone Encounter - Carlitos Beckman - 02/04/2024 9:03 AM EDT Surveillance imaging completed at OSH for IPMN surveillance. [facility]09-18-[facility]24 Telephone encounter Note* Telephone Encounter - Carlitos Beckman - 02/02/2024 8:57 AM EDT Call to patient to discuss plan of care. Surveillance imaging needed to evaluate pancreas cyst. Dx: IPMN Per Dr. Vaishali Pringle- recommended repeat MRI in 1 year Last imaging 02/17/2024 Orders placed: MRI Pancreas w/wo IVCON Patient's local GI ordered MRI and it was completed in 12/2023 at [facility]. Our office will request results for Dr. Pringle's review. Follow up will be determined upon Dr. Pringle's review of results. [facility]09-[facility] History of Present illness Narrative* Luc [...] Colon polyp 01/27/2024 Type 2 diabetes mellitus ([facility]) 01/27/2024 Type 2 diabetes mellitus without complication, without long-term current use of insulin ([facility]) 04/14/2023 Diabetic autonomic neuropathy associated with type 2 diabetes mellitus ([facility]) 04/14/2023 Diabetic peripheral neuropathy associated with type 2 diabetes mellitus ([facility]) 01/27/2024 Diverticulosis 01/27/2024 Dysphagia 04/14/2023 Essential hypertension ([facility]) 04/03/2022 Excessive daytime sleepiness 01/27/2024 FH: stomach cancer 04/14/2023 Chronic GERD 01/27/2024 GERD with apnea 01/27/2024 Glaucoma ([facility]) 04/03/2022 Hemorrhoids 01/27/2024 History of colon polyps 01/27/2024 History of malignant neoplasm of prostate 04/03/2022 [place] (hard of hearing) 04/03/2022 Hypercholesterolemia ([facility]) 04/03/2022 Hyperlipidemia ([facility]) 04/03/2022 Insomnia 04/03/2022 Internal derangement of right knee 01/27/2024 Irregular bowel habits 04/14/2023 Lump on neck 04/14/2023 Migraines ([facility]) 04/03/2022 Aortic valve regurgitation 04/26/2019 Mitral valve regurgitation 04/26/2019 Neuropathy 04/03/2022 NPH (normal pressure hydrocephalus) ([facility]) 04/03/2022 Central sleep apnea 01/27/2024 Obstructive [...] extremity 04/26/2019 Polyneuropathy associated with underlying disease ([facility]) 01/27/2024 Presence of cardiac pacemaker 03/14/2021 Prostate cancer ([facility]) 04/03/2022 Prostatitis 04/14/2023 Skin cancer 04/03/2022 Swollen lymph nodes 04/14/2023 Thoracic aortic ectasia ([facility]) 01/27/2024 Vitamin D deficiency 04/03/2022 Resolved Ambulatory Problems Diagnosis Date Noted Bloating 01/27/2024 Cellulitis of toe of left foot 01/27/2024 Cellulitis of toe of right foot 01/27/2024 Chest wall pain 04/03/2022 Gallstones 04/03/2022 COVID-19 11/10/2022 Entrapment of left ulnar nerve 01/27/2024 Entrapment of right ulnar nerve 01/27/2024 Fecal soiling 04/03/2022 Fecal urgency 04/14/2023 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 Lower abdominal pain 04/03/2022 Pain [...] Diverticulitis GERD (gastroesophageal reflux disease) HTN (hypertension) ([facility]) Migraine headache ([facility]) Pain management Paronychia of great toe Personal history of other medical treatment 04/2018 Sinus tarsi syndrome of right foot Sleep apnea Toe pain, right Type 2 diabetes mellitus with diabetic neuropathy ([facility]) Past Surgical History: Procedure Laterality Date CARDIAC CATHETERIZATION 08/30/2019 CATARACT EXTRACTION Bilateral CERVICAL FUSION 2016 C3-C4-C5 HERNIA REPAIR 2002 INSERT / REPLACE / REMOVE PACEMAKER 2015 pacemaker insertion OTHER SURGICAL HISTORY 2005 ablation OTHER SURGICAL HISTORY 2007 sphincterotomy SD CHOLECYSTECTOMY 02/2020 Laparoscopic Cholecystectomy - [place] SD IMPLANT ARTIFICIAL SPHINCTER 2017 PROSTATE 2000 TONSILLECTOMY 1970 Allergies Allergen Reactions Niacin Itching and Unknown Wound Dressing Adhesive Unknown Current Outpatient Medications on File Prior to Visit Medication Sig Dispense Refill amLODIPine (Norvasc) 5 MG tablet Take 5 mg by mouth in the morning. aspirin 81 MG EC tablet Take 81 mg by mouth in the morning. rckvkkzwqp-hvorgodkpvhey-yprjtsva 50-325-40 MG tablet Take 1 tablet by [...] actual location and nature documented in this encounterResearch Medical Center-Brookside [id number] Hospital Discharge instructions Patient Education 09/17/2023 09:05:07 [...] grapefruit, pineapple, and nury. Vegetables Deep-fried vegetables. Macanese fries. Any vegetables prepared with added fat. [...] provider. Document Revised: 11/11/2020 Document Reviewed: 11/11/2020 [employer] Patient Education 2022 [employer] Follow Up Care 06/25/2023 12:06:59 With:Sammi CASON, Jaiden Douglas GAS, [facility] Address: [facility] [address] [place] [address]- [phone] When:3 months [facility] [facility] 01-15-2024 Evaluation note* Encounter [...] months. A prescription was sent to the [facility] for new supplies throughout the year. He [...] sleepiness, or poor response to treatment. . [employer] Other 01-09-2024 Hospital Discharge instructions Patient Education [...] grapefruit, pineapple, and nury. Vegetables Deep-fried vegetables. Macanese fries. Any vegetables prepared with added fat. [...] provider. Document Revised: 11/11/2020 Document Reviewed: 11/11/2020 [employer] Patient Education 2022 [employer] Follow Up Care 02/25/2023 14:06:51 With:Anjali Ruby CNP Address: When:1 month [facility] 11-20-2023 Miscellaneous Notes* Telephone Encounter - Lolly Dumont - 04/05/2023 9:44 AM EST Received records from [facility]. Reports for imaging listed below scanned. Images pushed through 09/27/2019 US Right Upper Quad 03/31/2020 CT ABD/PEL US Right Upper Quad [facility] MRI Abdomen 02/22/2023 US Soft Tissue Head & Neck Received many misc. labs & ER reports Operative Note & pathology from Laparoscopic Cholecystectomy Patient seen 04/01, please review, thank you! [facility] Nurse Note* Debby Holland MA - [...] Temperature: No Drains: No documented in [facility] History of Present illness Narrative* Vaishali [...] Level: 4 - Moderate documented in [facility]-2023 NoteHNO ID: [id number] Author: Vaishali Pringle MD Service: ? Author [...] Pringle MD Medical De (more content not included)...[facility]10-25-2023 Hospital Discharge instructions Patient Education 03/10/2023 [...] Follow these instructions at home: Medicines Take rdrv-ded-znmcbjm and prescription medicines only as told by [...] Watch your condition for any changes. Take zlsv-lyz-wzcxdqh and prescription medicines only as told by [...] provider. Document Revised: 06/21/2020 Document Reviewed: 09/11/2019 [employer] Patient Education 2022 [employer] Follow Up Care 03/09/2023 09:58:32 With:Anjali Ruby CNP Address: When:1 to 2 weeks Comments:Following EGD. [facility] 10-12-2023 Hospital Discharge instructions [...] Follow these instructions at home: Medicines Take izup-fqo-eiaqhze and prescription medicines only as told by your health care provider. If you were prescribed an antibiotic medicine, take it as told by your health care provider. Do notstop taking the antibiotic even if you start to feel better. Eating and drinking Make any diet changes as told by your health care provider. Work with a diet and nutrition intern (dietitian) to create an eating plan that [...] Document Reviewed: 12/21/2020 Elsevier Patient Education 2022 [employer] Follow Up Care 02/22/2023 16:17:47 With:Anjali Ruby CNP Address: When:3 months [facility] 09-15-2023 Evaluation note* Encounter [...] months. A prescription was sent to the [facility] for new supplies throughout the year. He [...] sleepiness, or poor response to treatment. . [employer] Other 08-29-2023 Hospital Discharge instructions Patient Education [...] including vitamins, herbs, eye drops, creams, and atvp-dyx-bxfnmxj medicines. Any problems you or family members [...] provider tells you to take them. Taking fwqf-cjk-erpouai medicines, vitamins, herbs, and supplements. General instructions [...] provider. Document Revised: 04/27/2022 Document Reviewed: 12/24/2021 [employer] Patient Education 2022 [employer] Follow Up Care 12/28/2022 08:53:11 With:Anjali Ruby CNP Address: When:1 to 2 weeks Comments:Following EGD/Colonoscopy. [facility] 05-30-2023 Evaluation note* Encounter [...] sleepiness, or poor response to treatment. . [employer] Other 05-09-2023 Hospital Discharge instructions Patient Education 09/22/2022 18:15:09 COVID-19 COVID-19 COVID-19, or coronavirus disease 2018, is an infection that is caused by [...] managed at home with rest, fluids, and sckm-mey-srnkkmd medicines. 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 Make sure that all people in your [...] managed at home with rest, fluids, and zwtz-fkc-bjueqhp medicines. This information is not intended to replace advice given to you by your health care provider. Make sure you discuss any questions you have with your health care provider. Document Revised: 04/23/2022 Document Reviewed: 04/23/2022 [employer] Patient Education 2022 [employer] Follow Up Care 09/22/2022 16:24:11 With:Demetrius Cooper Address: [address] [place] [address]- Business (2) When:09/25/2022 18:12:09 [facility]05-09-2023 Evaluation note* Encounter Date Diagnosis [...] no improvement in 2 to 3 days. [employer] Other 04-11-2023 NoteCONSULTATION CONSULTATION DATE: 08/25/2022 TO: [...] our patients to inform us about any qben-pge-chpytel medications or herbal remedies/nutritional supplements/alternative remedies. 2. [...] with their primary care provider.[id number] Evaluation note * Encounter Date Diagnosis Assessment [...] symptoms if he does not take his fwev-gea-zyayswh hypnotic, sleep hygiene issues may also be [...] his neuropathy pain Jul,oronary artery disease involving [place] tribe heart without angina pectoris, unspecified vessel or [...] he does have a defibrillator in place [employer] Other 03-09-2023 NoteCONSULTATION CONSULTATION DATE: 07/23/2022 HISTORY [...] to hold the Plavix pre-procedure.[facility] [id number] NotePROCEDURE: XR ANKLE RT MIN 3 VIEWS COMPARISON: 08/22/2020 HISTORY: Pain of right ankle joint FINDINGS: BONES:No acute fracture or dislocation. Moderate enthesopathic spurring of the calcaneus. Degenerative changes with bone fragments along the inferior medial malleolus, stable. SOFT TISSUES:Negative. No visible soft tissue swelling. EFFUSION:None visible. OTHER: Negative. IMPRESSION: Stable degenerative changes Electronically authenticated by: ERWIN FALCON Date: 2022-07-22 10:37[facility] [id number] NotePROCEDURE: XR FOOT RT MIN 3 VIEWS [...] CLARISSA GARCIA Date: 2022-06-16 15:25[facility] [id number] Hospital Discharge instructions Patient Education 05/26/2022 13:46:25 [...] 100 degrees. Follow Up Care 04/27/2022 10:00:36 With:eDquan GALICIA Address: [facility] [address] [place] [address]- Business (1) When: Unknown Comments:Office will call to schedule follow up [facility]08-11-2022 NoteCONSULTATION PROCEDURE DATE: 12/25/2021 PRE [...] followed up in the clinic.[facility] 12-25-2021 NoteCONSULTATION CONSULTATION DATE: 12/25/2021 This [...] recently seen at an urgent care in [place] for left thumb pain and joint swelling. [...] months' time unless otherwise indicated.[facility] [id number] Evaluation note* Encounter Date Diagnosis Assessment Notes [...] will help you get into a specialist. [employer] Other [place] complaint+Reason for visit Narrative* Chief Complaint N54.2 Self Referral [facility] Work Phone: Chihg complaint+Reason for visit Narrative* Chief Complaint N54.2 Self Referral [id number] m54.12 m54.2 [facility] Work Phone: Chiow complaint+Reason for visit Narrative* Chief Complaint N54.2 Self Referral [id number] m54.12 m54.2 isidro, 31-90 [facility] Work Phone: Discharge summary Author Zeke Brennan [facility] CenterNote Date/TimeApril 2024 2:14pm[place] [address] Discharge Summary Signed Patient: Jeremie Bennett MR#: [id number] : 1940 Acct:[id number] Age/Sex: 83 / M Adm Date: 5 Loc: Room: [address] [place] [address]: Zeke Brennan MD Copies to: [...] was discharged home stable condition the [facility] with few more days of oral antimicrobial [...] Continuity of Care Document Health Concerns: A [facility] screening has identified you as [...] Strong:Four Ways to Beat the Frailty Risk [email or web address] [email or web address].[email or web address]-lei-uqbvtvlzkg/st xc-gkpylx-vldr- shxa-nk-lzlp-deq-zqkqelj-rnki Exam Physical Exam Vital Signs: Temp Pulse [...] % (Auto) 75.8, Lymph % (Auto) 9.0, Foster % (Auto) 13.6, Eos % (Auto) 1.0, Baso % (Auto) 0.6, Nucleat RBC Rel Count 0.1, Neut # (Auto) 4.7, Lymph # (Auto) 0.6 L, Foster # (Auto) 0.8, Eos # (Auto) 0.1, [...] % (Auto) 77.0, Lymph % (Auto) 10.5, Foster % (Auto) 11.3, Eos % (Auto) 0.7, Baso % (Auto) 0.5, Nucleat RBC Rel Count 0.2, Neut # (Auto) 5.7, Lymph # (Auto) 0.8 L, Foster # (Auto) 0.8, Eos # (Auto) 0.1, Baso # (Auto) 0.0, Monocyte Dist Width 23.19 H, ESR 42 H, PT 12.9, INR 1.1, Lactic Acid 0.8, C-Reactive Prot, Quant Cancelled 08/20/24 12:20: PHA Creatinine Clear 58.71, Sodium 136, Potassium 3.7, Chloride 104, Carbon Tjcxrhs67.4, Anion Gap 10.3, BUN 16, Creatinine 0.85, Est GFR (CKD- EPI) > 60.0, Glucose 106 H, Calcium 8.4 L, Total Bilirubin 0.6, AST 18, ALT 17, Alkaline Phosphatase 66, C-Reactive Prot, Quant 3.3 H, Total Protein 5.9 L, Albumin 3.4 L, Globulin 2.5, Albumin/Globulin Ratio 1.4 Documented By: Zeke Brennan MD 08/21/24 1407 Signed By: <Electronically signed by Zeke Brennan MD> 08/21/24 1414 [facility] Work Phone: Evaluation + Plan note No data available for this section [facility] Future Appointments Appointment Date:11/23/2022 09:00:00 AM Scheduled Provider:Demetrius Cooper MD Location:[facility] Appointment Type: Open [facility] Future Appointments Appointment Date:12/15/2022 12:00:00 PM Scheduled Provider:Anjali Ruby CNP Location:[facility] Appointment Type:[facility] New Patient Appointment Date:05/31/2023 09:00:00 AM Scheduled Provider:Demetrius Cooper MD Location:[facility] Appointment Type: Open Appointment Date:11/08/2023 01:00:00 PM Scheduled Provider: Location:[facility] Appointment Type:FM Medicare Wellness Subsequent Future Scheduled Tests Laboratory* HgbA1c 11/23/22 * CBC w/ Auto Diff 11/23/22 * Comprehensive Metabolic Panel 11/23/22 * Lipid Panel 11/23/22 [facility] Future Appointments Appointment Date:05/31/2023 09:00:00 AM Scheduled Provider:Demetrius Cooper MD Location:[facility] Appointment Type: Open Appointment Date:11/08/2023 01:00:00 PM Scheduled Provider: Location:[facility] Appointment Type:FM Medicare Wellness Subsequent Future Scheduled Tests Laboratory* HgbA1c 11/23/22 * CBC w/ Auto Diff 11/23/22 * Comprehensive Metabolic Panel 11/23/22 * [facility]ments Appointment Date:05/31/2023 09:00:00 AM Scheduled Provider:Demetrius Cooper MD Location:[facility] Appointment Type: Open Appointment Date:11/08/2023 01:00:00 PM Scheduled Provider: Location:[facility] Appointment Type: Medicare Wellness Subsequent Future Scheduled Tests Laboratory* HgbA1c 11/23/22 * CBC w/ Auto Diff 11/23/22 * Comprehensive Metabolic Panel 11/23/22 * Lipid Panel 11/23/22 Radiology* CT Abdomen w/ Contrast 01/12/23 [facility] evaluation + Plan note Future Appointments Appointment Date:05/03/2023 01:40:00 PM Scheduled Provider:Anjali Ruby CNP Location:[facility] Appointment Type:[facility] Follow Up Appointment Date:05/31/2023 09:00:00 AM Scheduled Provider:Demetrius Cooper MD Location:[facility] Appointment Type: Open Appointment Date:11/08/2023 01:00:00 PM Scheduled Provider: Location:[facility] Appointment Type: Medicare Wellness Subsequent Future Scheduled Tests Laboratory* HgbA1c 11/23/22 * CBC w/ Auto Diff 11/23/22 * Comprehensive Metabolic Panel 11/23/22 * Lipid Panel 11/23/22 [facility] evaluation + Plan note Future Appointments Appointment Date:05/03/2023 01:40:00 PM Scheduled Provider:Anjali Ruby CNP Location:[facility] Appointment Type:[facility] Follow Up Appointment Date:05/31/2023 10:00:00 AM Scheduled Provider:Demetrius Cooper MD Location:[facility] Appointment Type: Open Appointment Date:11/08/2023 01:00:00 PM Scheduled Provider: Location:[facility] Appointment Type: Medicare Wellness Subsequent Future Scheduled Tests Laboratory* HgbA1c 11/23/22 * CBC w/ Auto Diff 11/23/22 * Comprehensive Metabolic Panel 11/23/22 * Lipid Panel 11/23/22 [facility] evaluation + Plan note Future Appointments Appointment Date:05/03/2023 01:40:00 PM Scheduled Provider:Anjali Ruby CNP Location:[facility] Appointment Type:[facility] Follow Up Appointment Date:05/31/2023 10:00:00 AM Scheduled Provider:Demetrius Cooper MD Location:[facility] Appointment Type: Open Appointment Date:11/08/2023 01:00:00 PM Scheduled Provider: Location:[facility] Appointment Type: Medicare Wellness Subsequent Diagnostic Tests Pending * O & P Exam, Routine 03/10/23 * Giardia lamblia, Direct Detection EIA 03/10/23 Future Scheduled Tests Laboratory* HgbA1c 11/23/22 * CBC w/ Auto Diff 11/23/22 * Comprehensive Metabolic Panel 11/23/22 * Lipid Panel 11/23/22 [facility] Future Appointments Appointment Date:05/31/2023 10:00:00 AM Scheduled Provider:Demetrius Cooper MD Location:[facility] Appointment Type: Open Appointment Date:06/25/2023 01:20:00 PM Scheduled Provider:Anjali Ruby CNP Location:[facility] Appointment Type:[facility] Follow Up Appointment Date:11/08/2023 01:00:00 PM Scheduled Provider: Location:[facility] Appointment Type: Medicare Wellness Subsequent Future Scheduled Tests Laboratory* HgbA1c 11/23/22 * CBC w/ Auto Diff 11/23/22 * Comprehensive Metabolic Panel 11/23/22 * Lipid Panel 11/23/22 [facility] Evaluation + Plan note Future Appointments Appointment Date:10/21/2023 03:00:00 PM Scheduled Provider:Inez Henderson MD Location:[facility] Appointment Type:[facility] Follow Up Appointment Date:11/08/2023 01:00:00 PM Scheduled Provider: Location:[facility] Appointment Type: Medicare Wellness Subsequent Appointment Date:11/29/2023 10:15:00 AM Scheduled Provider:Demetrius Cooper MD Location:[facility] Appointment Type: Open Future Scheduled Tests Laboratory* U Protein/Creat Ratio 05/31/23 * HgbA1c 11/23/22 * HgbA1c 05/31/23 * Microalbumin Level Urine 05/31/23 * CBC w/ Auto Diff 11/23/22 * Comprehensive Metabolic Panel 11/23/22 * Lipid Panel 11/23/22 [facility] Evaluation + Plan note Future Appointments Appointment Date:10/21/2023 03:00:00 PM Scheduled Provider:Inez Hendreson MD Location:[facility] Appointment Type:BAD Follow Up Appointment Date:11/08/2023 01:00:00 PM Scheduled Provider: Location:[facility] Appointment Type: Medicare Wellness Subsequent Appointment Date:11/29/2023 10:15:00 AM Scheduled Provider:Demetrius Cooper MD Location:[facility] Appointment Type: Open Diagnostic Tests Pending * Celiac Disease Comprehensive 09/17/23 Future Scheduled Tests Laboratory* U Protein/Creat Ratio 05/31/23 * HgbA1c 11/23/22 * HgbA1c 05/31/23 * Microalbumin Level Urine 05/31/23 * CBC w/ Auto Diff 11/23/22 * Comprehensive Metabolic Panel 11/23/22 * Lipid Panel 11/23/22 [facility] Future Appointments Appointment Date:11/08/2023 01:00:00 PM Scheduled Provider: Location:[facility] Appointment Type: Medicare Wellness Subsequent Appointment Date:11/29/2023 10:15:00 AM Scheduled Provider:Demetrius Cooper MD Location:[facility] Appointment Type: Open Appointment Date:03/23/2024 02:45:00 PM Scheduled Provider:Inez Henderson MD Location:[facility] Appointment Type:[facility] Follow Up Future Scheduled Tests Laboratory* U Protein/Creat Ratio 05/31/23 * HgbA1c 11/23/22 * HgbA1c 05/31/23 * Microalbumin Level Urine 05/31/23 * CBC w/ Auto Diff 11/23/22 * Comprehensive Metabolic Panel 11/23/22 * Lipid Panel 11/23/22 Radiology* MRI Cholangiogram Pancreatography (mrcp) 10/21/23 [facility] Evaluation + Plan note Future Appointments Appointment Date:11/29/2023 10:15:00 AM Scheduled Provider:Demetrius Cooper MD Location:[facility] Appointment Type: Open Appointment Date:03/23/2024 02:45:00 PM Scheduled Provider:Inez Henderson MD Location:[facility] Appointment Type:[facility] Follow Up Appointment Date:11/06/2024 02:30:00 PM Scheduled Provider: Location:[facility] Appointment Type: Medicare Wellness Subsequent Future Scheduled Tests Laboratory* U Protein/Creat Ratio 11/24/23 * U Protein/Creat Ratio 05/31/23 * HgbA1c 11/30/23 * HgbA1c 11/23/22 * HgbA1c 05/31/23 * Microalbumin Level Urine 11/24/23 * Microalbumin Level Urine 05/31/23 * CBC w/ Auto Diff 11/23/22 * Comprehensive Metabolic Panel 11/23/22 * Lipid Panel 11/08/23 * Lipid Panel 11/23/22 [facility] Future Appointments Appointment Date:04/17/2024 10:00:00 AM Scheduled Provider:Demetrius Cooper MD Location:[facility] Appointment Type: Open Appointment Date:11/06/2024 02:30:00 PM Scheduled Provider: Location:[facility] Appointment Type: Medicare Wellness Subsequent Future Scheduled Tests Laboratory* U Protein/Creat Ratio 11/24/23 * U Protein/Creat Ratio 05/31/23 * HgbA1c 11/30/23 * HgbA1c 05/31/23 * Microalbumin Level Urine 11/24/23 * Microalbumin Level Urine 05/31/23 * Lipid Panel 11/08/23 Radiology* MRI Cholangiogram Pancreatography (mrcp) 03/23/24 [facility] Evaluation + Plan note Future Appointments Appointment Date:11/06/2024 02:30:00 PM Scheduled Provider: Location:[facility] Appointment Type: Medicare Wellness Subsequent Appointment Date:11/06/2024 03:30:00 PM Scheduled Provider:Demetrius Cooper MD Location:[facility] Appointment Type: Open Future Scheduled Tests Laboratory* U Protein/Creat Ratio 11/24/23 * U Protein/Creat Ratio 05/31/23 * HgbA1c 11/30/23 * HgbA1c 05/31/23 * Microalbumin Level Urine 11/24/23 * Microalbumin Level Urine 05/31/23 * Lipid Panel 11/08/23 [facility] evaluation + Plan note Future Appointments Appointment Date:11/21/2024 02:30:00 PM Scheduled Provider: Location:[facility] Appointment Type: Medicare Wellness Subsequent Appointment Date:11/21/2024 03:20:00 PM Scheduled Provider:Demetrius Cooper MD Location:[facility] Appointment Type: Open Diagnostic Tests Pending * Urine Culture 08/30/24 Future Scheduled Tests Laboratory* U Protein/Creat Ratio 11/24/23 * HgbA1c 11/30/23 * Microalbumin Level Urine 11/24/23 * Lipid Panel 11/08/23 [facility] evalurgawp noteNo Assessments Information Available [facility] assessment information available [facility] Work Phone: [email or web address] note* Diagnosis 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 [facility] Diagnosis 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 [facility]* Diagnosis Onset Date Resolution Status Viral URI with cough noneactiveImpacted cerumen, bilateralnoneactiveCentral sleep apneaacuteDM (diabetes mellitus)acuteEssential hypertensionacuteObstructive sleep apneaacute [facility] Work Phone: [email or web address] note* Diagnosis 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 [facility]* Diagnosis Migraine without aura and without status migrainosus, not intractable (CMS/HCC)- Primary Vertigo Dizziness and giddiness Lumbar radiculopathy Thoracic or lumbosacral neuritis or radiculitis, unspecified Neck pain Cervicalgia Degenerative disc disease, cervical Polyneuropathy Unspecified hereditary and idiopathic peripheral neuropathy documented in this encounter [facility] Healthcare[facility] note* Diagnosis LAD (lymphadenopathy) of right cervical region- Primary documented in this encounter [facility] HealthcareEvaluation note* Diagnosis 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 [facility]* Diagnosis Oral ulcer- Primary Other and unspecified diseases of the oral soft tissues 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) documented in this encounter [facility] HealthcareEvaluation note* Diagnosis 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 Ulcer of gingiva documented in this encounter [facility] HealthcareEvaluation note* Diagnosis Malignant neoplasm metastatic [...] mouth, part unspecified documented in this encounter [facility] Work Phone: Evaluation note* Diagnosis Parotid mass- Primary Swelling, mass, or lump in head and neck documented in this encounter [facility] HealthcareEvaluation note* Diagnosis Malignant neoplasm of [...] stated as uncontrolled documented in this encounter [facility] Work Phone: Evaluation note* 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 head, face, and neck documented in this encounter [facility] Work Phone: Evaluation note* Diagnosis Enlarged submental lymph node documented in this encounter [facility] Work Phone: Evaluation note* Diagnosis Poor [...] Dysphagia, unspecified type documented in this encounter [facility] Work Phone: Evaluation note* Diagnosis Esophageal dysphagia- Primary Dysphagia, pharyngoesophageal phase documented in this encounter [facility]* Diagnosis Vertigo- Primary Dizziness and giddiness Lumbar radiculopathy Thoracic or lumbosacral neuritis or radiculitis, unspecified Chronic bilateral low back pain, unspecified whether sciatica present Degenerative disc disease, cervical Migraine without aura and without status migrainosus, not intractable ([facility]) Polyneuropathy Unspecified hereditary and idiopathic peripheral [...] risk for malnutrition documented in this encounter [facility] Work Phone: Evaluation note* Diagnosis Esophageal [...] Historycardiac stentSurgical HistoryprostatectomySurgical Historyhernia Hospitalization Historysee above [employer] Other History general Narrative - Reported* Type Description Date Medical History DM (diabetes mellitus) Medical HistoryHTN (hypertension)Medical HistoryHypercholesteremiaMedical HistoryVitamin D deficiency, unspecifiedMedical HistoryCAD (coronary artery disease)Medical HistoryOSAMedical Historyventricular tachycardiaMedical History diabetic neuropathySurgical HistoryNeck SurgerySurgical Historycholecystectomy Surgical Historycardiac stentSurgical HistoryprostatectomySurgical Historyhernia Hospitalization Historysee above [employer] Other History of Present illness Narrative* Veena [...] this visit: Esophageal dysphagia 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 documented in this encounterSoutheast [facility] Centerspital Discharge instructions No data available for this section [facility] Discharge instructionsAmbulatory Orders* Referral to Palliative Medicine Time Frame: 06/14/24, Location: None Selected * RISE Order Location: None Selected [facility] Work Phone: Progress note No data available for this section [facility] Hospital[facility] Author Talib Faustin [facility] CenterNote Date/TimeJanuary 2024 11:06am [facility] [place] [address] Cancer Center Note Signed Patient: Jeremie Bennett MR#: [id number] : 1940 Acct:[id number] Age/Sex: 83 / M Type: REG AMB [...] by IHC was equivocal. 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 He [...] positive squamous cell carcinoma. Tumor board at [facility] in mid and the recommended concurrent [...] with concurrent chemoradiation. Since he lives in [place] he was referred by Dr. Mary Schneider from ENT at [facility] to our medical oncology and radiation oncology at [facility]. He is referred to medical oncology for [...] PO DAILY aspirin 81 mg PO DAILY mckrvmf-gixhuyznjxtzo-iigzosai 250-250-65 mg (Excedrin Migraine) 1 tab PO [...] card, magnet, caregiver resource list, [facility] nutrition guide, and cancer rehabilitation pamphlet [...] to have pace maker replaced 07/10/2024 at [facility]. [facility] Medical History Medical History (Updated 06/14/24 @ [...] by Talib Faustin MD> 06/14/24 1106 [facility] Work Phone: Progress note Author Talib Faustin [facility] CenterNote Date/TimeFebruary 2024 9:20am [facility] [address] Cancer Center Note Signed Patient: Jeremie Bennett MR#: [id number] : 1940 Acct:[id number] Age/Sex: 83 / M Type: REG AMB [...] by IHC was equivocal. As per the [facility] tumor board recommendation is either doing [...] his week 1 of cisplatin. Labs at [facility] on 07/03/24 revealed hgb 13.3, cr is 1.0. He is having his labs here today.He had his pacemaker placed on 07/10/24 in [place]. 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 He [...] positive squamous cell carcinoma. Tumor board at [facility] in [facility] and the recommended concurrent chemoradiation. [...] with concurrent chemoradiation. Since he lives in [place] he was referred by Dr. Mary Schneider from ENT at [facility] to our medical oncology and radiation oncology at [facility]. He is referred to medical oncology for [...] his week 1 of cisplatin. Labs at [facility] on 07/03/24 revealed hgb 13.3, cr is 1.0. He is having his labs here today.He had his pacemaker placed on 07/10/24 in [place]. Rest of 14 point systems were reviewed [...] PO QAM aspirin 81 mg PO DAILY biwixua-wesycbrdqojdt-sqjfbagd 250-250-65 mg (Excedrin Migraine) 1 tab PO [...] other concerns voiced at time of intake. [facility] Medical History Medical History (Updated 07/06/24 @ [...] Mother Heart disease History of stroke [facility] Problem: Diagnosed with Stroke Hypertension Emphysema lung ESRD (end stage renal disease) Sister Cancer [facility] Problem: Diagnosed with Cancer Lymphoma Social [...] by Talib Faustin MD> 07/12/24 0920 [facility] Work Phone: Progress note Author Zeke Brennan [facility] CenterNote Date/TimeApril 2024 2:14pmConnie [place] [id number] Hospitalist Progress Note Signed Patient: Jeremie Bennett MR#: [id number] : 1940 Acct:[id number] Age/Sex: 83 / M Adm Date: 5 Loc: Room: [address] [place] [address] Type: ADM IN Attending Dr: Zeke Brennan [...] care and confirmed it with the re sident/student/CRITICAL POWER TECHNICIAN. This patient presented to the emergency department [...] 20 Mg Tablet PO 08/21/25 20:59 QPM PENDING SALE TO [facility] Fentanyl 12 mcg 08/21/24 11:30 08/21/24 11:29 Fentanyl Patch 12 Mcg/Hour Patch.Td72 TRANSDERML 12 mcg Q72HR CINTHIA Administration Protocol Fluticasone Propionate 2 spray 08/21/24 09:00 08/21/24 09:02 Fluticasone Propionate [place] 120 [place]/16 Gm Bottle INTRANASAL 08/21/25 08:59 2 spray QAM PENDING SALE TO [facility] Administration Ceftriaxone Sodium 1 gm in 50 mls @ 100 mls/hr 08/21/24 22:00 Rocephin IV QHS PENDING SALE TO [facility] Isosorbide Mononitrate 30 mg 08/21/24 09:00 08/21/24 09:00 Isosorbide Mononitrate 24hr Er 30 Mg Tab.Er.24h PO 08/21/25 08:59 30 mg QAM PENDING SALE TO [facility] Administration Latanoprost 1 drops 08/21/24 21:00 Latanoprost 0.005% Op Soln 50 Drops/2.5 Ml Bottle EYE-BOTH 08/21/25 20:59 QPM PENDING SALE TO [facility] Lidocaine/Prilocaine 1 applic 08/20/24 21:59 Lidocaine-Prilocaine Cr 2.5-2.5% 5 Gm Tube TOPICAL 08/20/25 21:58 ONCE PRN pain Metformin HCl 500 mg 08/21/24 08:00 08/21/24 09:00 Metformin 500 Mg Tablet PO 08/21/25 07:59 500 mg DAILY@0800 PENDING SALE TO [facility] Administration Multi-Ingredient Mouthwash/Gargle 10 ml 08/20/24 [...] signed by DO KASSY Lambert> 08/21/24 1152 [facility] Work Phone: Progress note Author Talib Faustin [facility] CenterNote Date/TimeJuly 2024 10:26[facility] [place] [address] Cancer Center Note Signed Patient: Jeremie Bennett MR#: [id number] : 1940 Acct:[id number] Age/Sex: 84 / M Type: REG AMB [...] by IHC was equivocal. As per the [facility] tumor board recommendation is either doing [...] his week 1 of cisplatin. Labs at [facility] on 07/03/24 revealed hgb 13.3, cr is 1.0. He is having his labs here today.He had his pacemaker placed on 07/10/24 in [place]. 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 He [...] positive squamous cell carcinoma. Tumor board at [facility] in [facility] and the recommended concurrent chemoradiation. [...] with concurrent chemoradiation. Since he lives in [place] he was referred by Dr. Mary Schneider from ENT at [facility] to our medical oncology and radiation oncology at [facility]. He is referred to medical oncology for [...] his week 1 of cisplatin. Labs at [facility] on 07/03/24 revealed hgb 13.3, cr is 1.0. He is having his labs here today.He had his pacemaker placed on 07/10/24 in [place]. 07/20/2024 he came in complaining of increase [...] NO concerns voiced at time of intake. [facility] Medical History Medical History Squamous cell carcinoma [...] stage renal disease) [facility] Problem: Diagnosed with Cancer Lymphoma [...] by Talib Faustin MD> 11/23/24 1026 [facility] Work Phone: Progress note Author Becky Crouch [facility] CenterNote Date/TimeAugust 2024 1:25pm [facility] [place] [address] Cancer Center Note Signed Patient: Jeremie Bennett MR#: [id number] : 1940 Acct:[id number] Age/Sex: 84 / M Type: DEP AMB [...] G-tube was placed by surgery here at [facility] and patient is hopeful to have this [...] Extended-Release) Allergy (Unknown, Verified 11/23/24 10:00) hives [facility] Medical History Medical History (Updated 11/23/24 @ [...] signed by RAYSHAWN Crouch> 12/26/24 1343 [facility] Work Phone: Regmsb for referral (narrative) Referred by: Zoe Ruby CNPh Lyssa [facility] Reason for referral (narrative)No reason for referral information availableThe [facility] Work Phone: Reason for visit Narrative* Auth/CertSpecialty Diagnoses / ProceduresReferred By ContactReferred To Contact Diagnoses 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] Procedures SD GLOSSECTOMY HEMIGLOSSECTOMY SD LARYNGOSCOPY W/WO TRACHEOSCOPY DX EXCEPT SD BRNCHSC INCL FLUOR GDNCE DX W/CELL WASHG SPX SD ESOPHAGOSCOPY FLEXIBLE TRANSORAL DIAGNOSTIC SD TONSILLECTOMY PRIMARY/SECONDARY AGE 12/> GLOSSECTOMY, ROBOT-ASSISTED, ORAL APPROACH Direct Laryngoscopy Bronchoscopy [place]ophag[place] T[place] [address] [place] [address] Phone: tel: fax: [facility] [place] [address] [place] [address] fax: Referral IDStatusReasonStart DateExpiration DateVisits RequestedVisits [id number] [facility] Work Phone: Reason for visit Narrative* Imaging (Routine) - AuthorizedSpecialtyDiagnoses / ProceduresReferred By ContactReferred To ContactRadiology Diagnoses Enlarged submental lymph node Procedures US guided biopsy lymph node superficial [place] [address] [place] [address] Phone: tel: fax: Referral IDStatusLetyasonStart DateExpiration DateVisits RequestedVisits [id number] Perform Procedure [facility] Work Phone: Summary Purpose Family History Relationship Condition Age [...] emphysemaUnknownEnd-stage renal diseaseUnknown sisterDeceasedUnknownMalignant neoplasmUnknownLymphomaUnknown Advance Directives Advance Directive Response Recorded Date/ Time Advance Directives No August 13, 10:26am Advance Directive Response Recorded Date/ Time Advance Directives No August 19 10:47am Advance Directive Response Recorded Date/ Time Advance Directives No August 19 9:47am TypeDate RecordedPatient RepresentativeExplanationHealthcare Power of Atty 05/11/2024Living Will05/11/2024TypeDate RecordedPatient Airport Traffic Controller ExplanationHealthcare Power of Atty107/12/2023Living Will05/11/2024 Advance Directive [...] of oropharynx [facility] 2024 9:25am Tongue cancer June 14, 2024 9 :25am Squamous cell carcinoma of oropharynx [facility] 2024 10:28am Chief Complaint Admit Date NEW-Mal [...] of oropharynx [facility] 2024 9:25am Tongue cancer June 14, 2024 9 :25am Squamous cell carcinoma of oropharynx [facility] 2024 10:28am Encounter for palliative care June 182024 8:00am Squamous cell carcinoma of oropharynx [facility] 2024 8:00am Chief Complaint Admit Date NEW-Mal [...] of oropharynx [facility] 2024 9:25am Tongue cancer June 14, 2024 9 :25am Squamous cell carcinoma of oropharynx [facility] 2024 10:28am Encounter for palliative care June 182024 8:00am Squamous cell carcinoma of oropharynx [facility] 2024 8:00am Cancer associated pain July 12 7:36am Nausea July 12, 2024 7:36am Squamous cell carcinoma of oropharynx Fe bruary 2024 7:36am Squamous cell carcinoma of oropharynx Fe bruary 2024 8:29am Tongue cancer July 12, 2024 [...] Admit Date Squamous cell carcinoma of oropharynx [facility] 2024 8:13am Cancer associated pain July 26, 2024 8:22am Nausea July 26, 2024 8:2 2am Squamous cell carcinoma of oropharynx [facility] 2024 8:22am Chief Complaint Admit Date [...] Admit Date Squamous cell carcinoma of oropharynx [facility] 2024 8:13am Cancer associated pain July 26, 2024 8:22am Nausea July 26, 2024 8:2 2am Squamous cell carcinoma of oropharynx [facility] 2024 8:22am Cancer associated pain August 02, 2024 7:29am Constipation August 02, 2024 7:2 9am Squamous cell carcinoma of oropharynx [facility] 2024 7:29am Thrush, oral August 02, [...] Admit Date Squamous cell carcinoma of oropharynx [facility] 2024 8:13am Cancer associated pain July 26, 2024 8:22am Nausea July 26, 2024 8:2 2am Squamous cell carcinoma of oropharynx [facility] 2024 8:22am Cancer associated pain August 02, 2024 7:29am Constipation August 02, 2024 7:2 9am Squamous cell carcinoma of oropharynx [facility] 2024 7:29am Thrush, oral August 02, 2024 7:2 9am Cancer associated pain August 09, 2024 7:51am Constipation August 09, 2024 7:5 1am Nausea August 09, 2024 7:5 1am Squamous cell carcinoma of oropharynx [facility] 2024 7:51am Squamous cell carcinoma of oropharynx [facility] 2024 9:23am Chief Complaint Admit Date [...] Admit Date Squamous cell carcinoma of oropharynx [facility] 2024 8:13am Cancer associated pain July 26, 2024 8:22am Nausea July 26, 2024 8:2 2am Squamous cell carcinoma of oropharynx [facility] 2024 8:22am Cancer associated pain August 02, 2024 7:29am Constipation August 02, 2024 7:2 9am Squamous cell carcinoma of oropharynx [facility] 2024 7:29am Thrush, oral August 02, 2024 7:2 9am Cancer associated pain August 09, 2024 7:51am Constipation August 09, 2024 7:5 1am Nausea August 09, 2024 7:5 1am Squamous cell carcinoma of oropharynx [facility] 2024 7:51am Squamous cell carcinoma of oropharynx [facility] 2024 9:23am Cancer associated pain August 16, 2024 7 :59am Constipation August 16, 2024 7:59 am Nausea August 16, 2024 7:59 am Squamous cell carcinoma of oropharynx [facility] 2024 7:59am Chief Complaint Admit Date [...] Admit Date Squamous cell carcinoma of oropharynx [facility] 2024 8:13am Cancer associated pain July 26, 2024 8:22am Nausea July 26, 2024 8:2 2am Squamous cell carcinoma of oropharynx [facility] 2024 8:22am Cancer associated pain August 02, 2024 7:29am Constipation August 02, 2024 7:2 9am Squamous cell carcinoma of oropharynx [facility] 2024 7:29am Thrush, oral August 02, 2024 7:2 9am Cancer associated pain August 09, 2024 7:51am Constipation August 09, 2024 7:5 1am Nausea August 09, 2024 7:5 1am Squamous cell carcinoma of oropharynx [facility] 2024 7:51am Squamous cell carcinoma of oropharynx [facility] 2024 9:23am Cancer associated pain August 16, 2024 7 :59am Constipation August 16, 2024 7:59 am Nausea August 16, 2024 7:59 am Squamous cell carcinoma of oropharynx [facility] 2024 7:59am Fever August 20, 2024 [...] Admit Date Squamous cell carcinoma of oropharynx [facility] 2024 8:13am Cancer associated pain July 26, 2024 8:22am Nausea July 26, 2024 8:2 2am Squamous cell carcinoma of oropharynx [facility] 2024 8:22am Cancer associated pain August 02, 2024 7:29am Constipation August 02, 2024 7:2 9am Squamous cell carcinoma of oropharynx [facility] 2024 7:29am Thrush, oral August 02, 2024 7:2 9am Cancer associated pain August 09, 2024 7:51am Constipation August 09, 2024 7:5 1am Nausea August 09, 2024 7:5 1am Squamous cell carcinoma of oropharynx [facility] 2024 7:51am Squamous cell carcinoma of oropharynx [facility] 2024 9:23am Cancer associated pain August [...] Admit Date Squamous cell carcinoma of oropharynx [facility] 2024 8:13am Cancer associated pain July 26, 2024 8:22am Nausea July 26, 2024 8:2 2am Squamous cell carcinoma of oropharynx [facility] 2024 8:22am Cancer associated pain August 02, 2024 7:29am Constipation August 02, 2024 7:2 9am Squamous cell carcinoma of oropharynx [facility] 2024 7:29am Thrush, oral August 02, 2024 7:2 9am Cancer associated pain August 09, 2024 7:51am Constipation August 09, 2024 7:5 1am Nausea August 09, 2024 7:5 1am Squamous cell carcinoma of oropharynx [facility] 2024 7:51am Squamous cell carcinoma of oropharynx [facility] 2024 9:23am Cancer associated pain August [...] Admit Date Squamous cell carcinoma of oropharynx [facility] 2024 8:13am Cancer associated pain July 26, 2024 8:22am Nausea July 26, 2024 8:2 2am Squamous cell carcinoma of oropharynx [facility] 2024 8:22am Cancer associated pain August 02, 2024 7:29am Constipation August 02, 2024 7:2 9am Squamous cell carcinoma of oropharynx [facility] 2024 7:29am Thrush, oral August 02, 2024 7:2 9am Cancer associated pain August 09, 2024 7:51am Constipation August 09, 2024 7:5 1am Nausea August 09, 2024 7:5 1am Squamous cell carcinoma of oropharynx [facility] 2024 7:51am Squamous cell carcinoma of oropharynx [facility] 2024 9:23am Cancer associated pain August [...] 2: 36pm Squamous cell carcinoma of oropharynx Dc y 2024 2:36pm Thrush, oral September 26, [...] carcinoma of oropharynx [facility] 2024 9:41am Chief Complaint Admit Date Follow Up 3 Months, H+N February 22 9:41am Mal Miguel base of tongue February 23 9:51am REF DR. ARMSTRONG FOR ABNORMAL CT February 1:20pm Assessments No Assessments Information Available Reason for Referral SpecialtyDiagnoses / ProceduresReferred By ContactReferred To Contact Diagnoses Migraine without aura and without status migrainosus, not intractable (CMS/HCC) Missy Westfall PA [address] [place] [address] Referral IDStatusReasonStart DateExpiration DateVisits RequestedVisits [id number] / ProceduresReferred By ContactReferred To ContactMR IMAGING Diagnoses IPMN (intraductal papillary mucinous neoplasm) Procedures MRI 3D POST PROCESSING 3D RENDERING W/INTERP&POSTPROC [place] [address] [facility] [address] [place] [address] Mr Imaging [place] [address] Referral IDStatusReasonStart DateExpiration DateVisits RequestedVisits [id number] Request Auto-Generated Referral [id number] / ProceduresReferred By ContactReferred To ContactMR IMAGING Diagnoses IPMN (intraductal papillary mucinous neoplasm) Procedures MRI PANC/TRISH WO/W IVCON MRI ABDOMEN W/O & W/[place] [address] [place] [address] [place] [address] Referral IDStatusReasonStart DateExpiration DateVisits RequestedVisits [id number] Request Auto-Generated Referral Additional Source Comments (unrecognized [...] section and content) DATE CREATED AUTHOR 02/08/2020 [facility] DATE CREATED AUTHOR AUTHOR'S ORGANIZ ATION 09/30/2022 [facility] DATE CREATED AUTHOR AUTHOR'S ORGANIZ ATION 02/04/2023 [facility] DATE CREATED AUTHOR AUTHOR'S ORGANIZ ATION 04/01/2024 [facility] DATE CREATED AUTHOR AUTHOR'S ORGANIZ ATION 04/19/2024 [facility] DATE CREATED AUTHOR AUTHOR'S ORGANIZ ATION 07/05/2024 [facility] DATE CREATED AUTHOR AUTHOR'S ORGANIZ ATION 07/21/2024 [facility] DATE CREATED AUTHOR AUTHOR'S ORGANIZ ATION 07/22/2024 [facility] DATE CREATED AUTHOR AUTHOR'S ORGANIZ ATION 09/03/2024 [facility] DATE CREATED AUTHOR AUTHOR'S ORGANIZ ATION 10/15/2024 [facility] DATE CREATED AUTHOR AUTHOR'S ORGANIZ ATION 10/31/2024 [facility] DATE CREATED AUTHOR AUTHOR'S ORGANIZ ATION 12/01/2024 [facility] DATE CREATED AUTHOR AUTHOR'S ORGANIZ ATION 12/27/2024 [facility] DATE CREATED AUTHOR AUTHOR'S ORGANIZ ATION 01/20/2025 [facility] DATE CREATED AUTHOR AUTHOR'S ORGANIZ ATION 02/17/2025 [facility] DATE CREATED AUTHOR AUTHOR'S ORGANIZ ATION 02/25/2025 [facility] REASON FOR VISIT (unrecogniz ed section and content) ReasonCommentsConsultPEHReasonCommentsReceived Outside Medical RecordsReason CommentsBack PainDizzinessNeck PainReasonCommentsParotid massParotid massReason CommentsMRI AppointmentCare Coordinator - OtherReasonCommentsParotid MassFollow up FNA 02/29/24 TBHReasonCommentsRadiology NMReasonCommentsMouth LesionsFollow up PET [facility] 03/27/24ReasonCommentsNew Patient VisitOral cancer. ReasonCommentsNeck MassUltrasound 01/20/24. Lump right side of neck below ear. Onset about 6 wk agoReasonCommentsPost-opHead and neckReasonCommentsConsultPort - Ref Dr LAMAS Tongue cancerHaving pacemaker generator change on 07-10-24 / [place] cardiology Dr Patel.SpecialtyDiagnoses / ProceduresReferred By ContactReferred To ContactGeneral Surgery Diagnoses Malignant neoplasm of oropharynx, unspecified (CMS/HCC) Procedures [place] UNLISTED EVALUATION AND MANAGEMENT SERVICE Dennis Gray MD [address] [place] [address] Phone: tel: fax: Stacey Hinojosa DO [address] [place] [address] Phone: tel: fax: Referral IDStatusReasonStart DateExpiration DateVisits RequestedVisits [id number]-ryYimojvAxicjhge urgent need for gastrostomy shlkIfrygpFlatlbyv6gb pow gastrostomy tube placement ReasonCommentsGastrostomy tube removalSpecialtyDiagnoses / ProceduresReferred By ContactReferred To ContactGeneral Surgery Diagnoses Malignant neoplasm of oropharynx, unspecified (HCC) Procedures SD UNLISTED EVALUATION AND MANAGEMENT SERVICE Gelacio Paredes MD Phone: tel: fax: Veena Ross DO [address] [place] [address] Phone: tel: fax: Referral IDStatusReasonStart DateExpiration DateVisits RequestedVisits [id number]/12/[id number]/[id number] of gastrostomy tube Patient Care team informatio n (unrecognized section and content) Team Status: Active Member Role Status Dates Demetrius Cooper MD Primary Care Provider Active Team Status: Inactive Member Role Status Tati Cooper MD Primary Care Provider Active Start: June 22, 2024 End: June 22lGlynn Garzaending ProviderActiveStart: June 22, 2024 End: June 22, 2024 Team Status: Inactive Member Role Status Tati Cooper MD Primary Care Provider Active Start: July 03, 2024 End: July 03jerome Melo MDAttending ProviderActiveStart: July 03, 2024 End: July 03, 2024 Team Status: Active Member Role Status Tati Cooper MD Primary Care Provider Active Start: July 05, 2024 Mary Schneider , MDReferring ProviderActiveStart: July 05, 2024 Dennis Gray , MDAttending Provider, Other ProviderActiveStart: July 05, 2024 Team [...] Active Start: July 06, 2024 Mary Schneider MDReferring ProviderActiveStart: July 06, 2024 Dennis Gray MDOther ProviderActiveStart: July 06, 2024 Soufian Kurtis , MDAttending ProviderActiveStart: July 06, 2024 Team Status: Active Member Role Status Dates Demetrius Cooper MD Primary Care Provider Active Start: July 10, 2024 Mary Schneider , MDReferring ProviderActiveStart: July 10, 2024 Dennis Gray , MDAttending Provider, Other ProviderActiveStart: July 10, 2024 Team Status: Inactive Member Role Status Dates Demetrius Cooper MD Primary Care Provider Active Start: July 12, 2024 End: July 12, 2024Debora Wild APRNAtsarita ProviderActiveStart: July 12, 2024 End: July 12, 2024 Team Status: Active Member Role Status Dates Demetrius Cooper MD Primary Care Provider Active Start: July 12, 2024 Debora Wild APRNAtsarita Provider, Other ProviderActiveStart: July 12, 2024 Team Status: Inactive Member Role Status Dates Demetrius Cooper MD Primary Care Provider Active Start: July 12, 2024 End: July 12, 2024Saúl Garcia ProviderActiveStart: July 12, 2024 End: July 12, [...] 2024 HUMBERTO Harleyeferring ProviderActiveStart: July 17, 2024 Saúl Medina ProviderActiveStart: July 17, 2024 Chavez Garcia ProviderActiveStart: July 17, 2024 Team Status: Inactive Member Role Status Dates Demetrius Cooper MD Primary Care Provider Active Start: July 17, 2024 End: July 17jerome Melo , MDAttending ProviderActiveStart: July 17, 2024 End: July 17, 2024 Team Status: Inactive Member Role Status Dates Demetrius Cooper MD Primary Care Provider Active Start: July 19, 2024 End: July 19, 2024Debora Wild , APRNAttenmonica ProviderActiveStart: July 19, 2024 End: July 19, 2024 Team Status: Active Member Role Status Dates Demetrius Cooper MD Primary Care Provider Active Start: July 19, 2024 Debora Wild , Stefanie Provider, Other ProviderActiveStart: July 19, 2024 Team Status: Active Member Role Status Dates Demetrius Cooper MD Primary Care Provider Active Start: July 19, 2024 Mary Schneider , HUMBERTOeferring ProviderActiveStart: July 19, 2024 Dennsi Gray , MDActiveStart: July 19, 2024 Chavez Tolliver ProviderActiveStart: July 19, 2024 Maribeth Hull , MDAttending ProviderActiveStart: July 19, 2024 Team Status: Inactive Member Role Status Dates Demetrius Cooper MD Primary Care Provider Active Start: July 20, 2024 End: July 20, 2024Talib Faustin MDAttending ProviderActiveStart: July 20, 2024 End: July 20, 2024 Team Status: Active Member Role Status Dates Demetrius Cooper MD Primary Care Provider Active Start: July 24, 2024 HUMBERTO Harleyeferring ProviderActiveStart: July 24, 2024 Dennis Gray , MDActiveStart: July 24, 2024 Talib Faustin MDOther ProviderActiveStart: July 24, 2024 Luisana Johns MDAttending ProviderActiveStart: July 24, 2024 Team Status: Active Member Role Status Dates Demetrius Cooper MD Primary Care Provider Active Start: July 26, 2024 HUMBERTO Harleyefgopaling ProviderActiveStart: July 26, 2024 Dennis Gray , MDActiveStart: July 26, 2024 Chavez Tolliver ProviderActiveStart: July 26, 2024 Maribeth Hull , MDAttending ProviderActiveStart: July 26, 2024 [...] 2024 HUMBERTO Harleyeferring ProviderActiveStart: July 31, 2024 Saúl Medina ProviderActiveStart: July 31, 2024 Chavez Tolliver ProviderActiveStart: July 31, 2024 Luisana Johns , MDActiveStart: July 31, 2024 Team Status: Inactive Member Role Status Dates Demetrius Cooper MD Primary Care Provider Active Start: August 02, 2024 End: August 02jose Galicia DO FELLOWAttending ProviderActiveStart: August 02, 2024 End: August 02, 2024 Team Status: Active Member Role Status Tati Cooper MD Primary Care Provider Active Start: August 02, 2024 HUMBERTO Harleyeferring ProviderActiveStart: August 02, 2024 Dennis Gray MDOther ProviderActiveStart: August 02, 2024 Talib Faustin , MDActiveStart: August 02, 2024 Mraibeth Hull , MDAttending ProviderActiveStart: August 02, 2024 Team Status: Active Member Role Status Dates Demetrius Cooper MD Primary Care Provider Active Start: August 07, 2024 HUMBERTO Harleyeferring ProviderActiveStart: August 07, 2024 Dennis Gray , MYAttending ProviderActiveStart: August 07, 2024 Talib Faustin MDOther ProviderActiveStart: August 07, 2024 Team Status: Inactive Member Role Status Dates Demetrius Cooper MD Primary Care Provider Active Start: August 09, 2024 End: August 09, 2024Debora Wild , Stefanie ProviderActiveStart: August 09, 2024 End: August 09, 2024 Team Status: Active Member Role Status Dates Demetrius Cooper MD Primary Care Provider Active Start: August 09, 2024 Hue Harleying ProviderActiveStart: August 09, 2024 Dennis Gray MDOther ProviderActiveStart: August 09, 2024 rick Faustin , MDActiveStart: August 09, 2024 Maribeth Hull , MDAttending ProviderActiveStart: August 09, 2024 Team Status: Inactive Member Role Status Dates Demetrius Cooper MD Primary Care Provider Active Start: August 09, 2024 End: August 09, 2024rick Faustin MDAttending ProviderActiveStart: August 09, 2024 End: August 09, 2024 Team Status: Active Member Role Status Dates Demetrius Cooper MD Primary Care Provider Active Start: August 09, 2024 Stefanie Engle Provider, Other ProviderActiveStart: August 09, 2024 Team Status: Active Member Role Status Dates Demetrius Cooper MD Primary Care Provider Active Start: August 14, 2024 HUMBERTO Harleyeferring ProviderActiveStart: August 14, 2024 Dennis Gray MDAttending ProviderActiveStart: August 14, 2024 Talib Faustin MDOther ProviderActiveStart: August 14, 2024 Team Status: Active Member Role Status Dates Demetrius Cooper MD Primary Care Provider Active Start: August 15, 2024 HUMBERTO Harleyeferring ProviderActiveStart: August 15, 2024 Dennis Gray , MDActiveStart: August 15, 2024 Talib Faustin MDOther ProviderActiveStart: August 15, 2024 Maribeth Hull MDAttending ProviderActiveStart: August 15, 2024 Team Status: Inactive Member Role Status Dates Demetrius Cooper MD Primary Care Provider Active Start: August 16, 2024 End: August 16, 2024Debora Wild , APRNAttenmonica ProviderActiveStart: August 16, 2024 End: August 16, 2024 Team Status: Active Member Role Status Dates Demetrius Cooper MD Primary Care Provider Active Start: August 16, 2024 Stefanie Engle Provider, Other ProviderActiveStart: August 16, 2024 Team Status: Active Member Role Status Dates Dennis Gray MD Attending Provider Active Start: August 17, 2024 [facility] ProviderActiveStart: August 17, 2024 Team Status: Inactive Member Role Status Dates Demetrius Cooper MD Primary Care Provider Active Start: August 20, 2024 End: August 21, 2024Maye Chavez ProviderActiveStart: August 20, 2024 End: August 21, 2024Mogary Nance , MDAdmit ProviderActiveStart: August 20, 2024 End: August 21, 2024Yash Thomas MDOther ProviderActiveStart: August 20, 2024 End: August 21ndGlynn Naylorending ProviderActiveStart: August 20, 2024 End: August 21, 2024 Team Status: Active Member Role Status Dates Demetrius Cooper MD Primary Care Provider Active Start: August 21, 2024 Maye Chavez ProviderActiveStart: August 21, 2024 Jaiden Nance , MDAdmit ProviderActiveStart: August 21, 2024 Saúl Alonso Provider, Other ProviderActiveStart: August 21, 2024 Zeke Brennan MDOther ProviderActiveStart: August 21, 2024 Team Status: Active Member Role Status Dates Demetrius Cooper MD Primary Care Provider Active Start: August 21, 2024 Mary Schneider , MDReferring ProviderActiveStart: August 21, 2024 Dennis Gray , MDActiveStart: August 21, 2024 Talib Faustin MDOther [...] Start: August 23, 2024 End: August 23, 2024rick Faustin MDAttending ProviderActiveStart: August 23, 2024 End: August 23, 2024 Team Status: Inactive Member Role Status Dates Demetrius Cooper MD Primary Care Provider Active Start: September 07, 2024 End: September 07, 2024Stefanie Garnica ProviderActive Start: September 07, 2024 End: September 07, 2024 Team Status: Active Member Role Status Dates Demetrius Cooper MD Primary Care Provider Active Start: September 07, 2024 Mary Schneider MDReferring ProviderActiveStart: September 07, 2024 Dennis Gray , MDActiveStart: September 07, 2024 rick Faustin MDAttending ProviderActiveStart: September 07, 2024 Team Status: Inactive Member Role Status Dates Demetrius Cooper MD Primary Care Provider Active Start: September 11, 2024 End: September 11, 2024Gisele Brunson NPAttending ProviderActiveStart: September 11, 2024 End: September 11, 2024 Team Status: Inactive Member Role Status Dates Demetrius Cooper MD Primary Care Provider Active Start: September 20, 2024 End: September 20deyanira Hayes MDEmergency ProviderActiveStart: September 20, 2024 End: September 20, 2024 Team Status: Active Member Role Status Dates Demetrius Cooper MD Primary Care Provider Active Start: June 20, 2024 Mary Schneider MDReferring ProviderActiveStart: June 20, 2024 Dennis Gray MDOther ProviderActiveStart: June 20, 2024 Luisana Johns MDAttending ProviderActiveStart: June 20, 2024 Team Status: Active Member Role Status Dates Demetrius Cooper MD Primary Care Provider Active Start: August 17, 2024 Mary Schneider MDReferring ProviderActiveStart: August 17, 2024 Glynn Medinaending ProviderActiveStart: August 17, 2024 Talib Faustin MDOther ProviderActiveStart: August 17, 2024 Team [...] Primary Care Provider Active Alanna Hardy DPM MSAttsara ProviderActiveLatonya Morales ProviderActive Team Status: [...] MD Primary Care Provider Active Gisele Brunson NPAttsara ProviderActive Team Status: Inactive Member Role Status Dates Demetrius Cooper MD Primary Care Provider Active Tonia Chavez ProviderActiveTeam MemberRelationship SpecialtyStart DateEnd Date Anjali Ruby CNP [facility] [place] [address] [facility]03/03/23Team MemberRelationshipSpecialtyStart DateEnd Date Anjali Ruby CNP [address] [place] [address] [facility]03/03/23 Team Status: Inactive Member Role Status Dates Demetrius Cooper MD Primary Care Provider Active Start: July 27, 2023 End: July 26Stefanie Moore ProviderActiveStart: July 27, 2023 End: July 27, 2023 Team Status: Inactive Member Role Status Dates Demetrius Cooper MD Primary Care Provider Active Start: September 02, 2023 End: September 01egMichele Ruiz ProviderActiveStart: September 02, 2023 End: September 02, 2023Team MemberRelationshipSpecialtyStart DateEnd Date Anjali Ruby CNP [address] [place] [address] [facility]03/03/23Team MemberRelationshipSpecialtyStart DateEnd Date Demetrius Cooper MD [address] [place] [phone] PCP - [facility] Medicine01/26/24 Clarissa Corado MD [address] [place] [address] Referring PhysicianNeurology08/03/23Team MemberRelationshipSpecialtyStart DateEnd Date Demetrius Cooper MD [address] [place] [phone] PCP - [facility] Medicine01/26/24 Clarissa Corado MD [address] [place] [address] Referring PhysicianNeurology08/03/23Team MemberRelationshipSpecialtyStart DateEnd Date Demetrius Cooper MD [address] [place] [phone] PCP - [facility] Medicine01/26/24 Clarissa Corado MD [address] [place] [address] Referring PhysicianNeurology08/03/23Team MemberRelationshipSpecialtyStart DateEnd Date Anjali Ruby CNP [address] [place], [place] [address] [address] [facility]03/03/23 Team Status: Inactive Member Role Status Dates Demetrius Cooper MD Primary Care Provider Active Start: February 29, 2024 End: February 29, 2024Hisara aHm Jr [facility]ENTERttending ProviderActiveStart: February 29, 2024 End: February 29, 2024Team MemberRelationshipSpecialtyStart DateEnd Date Demetrius Cooper MD [address] [place] [phone] PCP - [facility]01/26/24 Clarissa Corado MD [address] [place] [address] Referring PhysicianChristianacare08/03/23Team MemberRelationshipSpecialtyStart DateEnd Date Demetrius Cooper MD [address] [place] [phone] PCP - Generalmily Medicine01/26/24 Clarissa Corado MD [address] [place] [id number] Referring PhysicianNeurology08/03/23Team MemberRelationshipSpecialtyStart DateEnd Date Demetrius Cooper MD [address] [place] [phone] [facility]/24 Clarissa Corado MD [address] [facility] [place] [address] Referring PhysicianNeurology08/03/23Team MemberRelationshipSpecialtyStart DateEnd Date Demetrius Cooper MD [address] [place] [address] PCP - [facility] Twdkcfgd85/11/24 Anjali Ruby CNP [address] [place] [address] [facility]erring[facility] Rdkyjswp08/18/23 Luc Ham MD [address] [phone] Ent - Kldiecibyunpwz74/25/24Team MemberRelationshipSpecialtyStart DateEnd Date Demetrius Cooper MD [address] [place] [phone] PCP - [facility] Medicine01/26/24 Clarissa Corado MD [address] [place] [id number] Referring PhysicianNeurology08/03/23Team MemberRelationshipSpecialtyStart DateEnd Date Demetrius Cooper MD [address] [facility] [place] [address] PCP - GeneralFamily Kghlessc06/26/24Team MemberRelationshipSpecialtyStart Date End Date Demetrius Cooper MD [address] [facility] [place] [address] [facility] - [facility] Edxfaavs28/26/24Team MemberRelationshipSpecialtyStart Date End Date Demetrius Cooper MD [address] [facility] [place] [address] PCP - Generalmi Dfhcohxi58/26/24Team MemberRelationshipSpecialtyStart Date End Date Demetrius Cooper MD [facility] [facility] [place] [address] PCP - Generalmi Tblbybkx62/26/24 Team Status: Inactive Member Role Status Dates Demetrius Cooper MD Primary Care Provider Active Start: June 14, 2024 End: June 14, 2024Saúl Garcia ProviderActiveStart: June 14, 2024 End: June 14, 2024Samantha Harley ProviderActiveStart: June 14, 2024 End: June 14, 2024 Team Status: Active Member Role Status Dates Demetrius Cooper MD Primary Care Provider Active Start: June 14, 2024 Saúl Tolliver ProviderActiveStart: June 14, 2024 Samantha Harley ProviderActiveStart: June 14, 2024 Team Status: Inactive Member Role Status Dates Demetrius Cooper MD Primary Care Provider Active Start: June 14, 2024 End: June 14, 2024Noiván Gray MDAttending ProviderActiveStart: June 14, 2024 End: June 14, 2024Mary Schneider MDReferring ProviderActiveStart: June 14, 2024 End: June 14, 2024Team MemberRelationshipSpecialtyStart DateEnd Date Demetrius Cooper MD [address] [place] [phone] PCP - [facility] Medicine01/26/24 Clarissa Corado MD [address] [place] [address] Referring PhysicianNeurology08/03/23 Team Status: Active Member Role Status Dates Demetrius Cooper MD Primary Care Provider Active Start: June 20, 2024 Luisito Harleyerring ProviderActiveStart: June 20, 2024 Glynn Medinaending ProviderActiveStart: June 20, 2024 Team MemberRelationshipSpecialtyStart DateEnd Date Demetrius Cooper MD [address] [place] [phone] PCP - [facility] Medicine01/26/24 Clarissa Corado MD [address] [place] [address] Referring PhysicianNeurology08/03/23 Team Status: Active Member Role [...] , MDAttending ProviderActiveStart: July 12, 2024 Mhd Ramin Faustin , MDActiveStart: July 12, 2024 Team Status: Active Member Role Status Dates Demetrius Cooper MD Primary Care Provider Active Start: July 13, 2024 Mary Schneider , MDReferring ProviderActiveStart: July 13, 2024 Dennis Gray , MYAttending ProviderActiveStart: July 13, 2024 Talib Faustin MDOther ProviderActiveStart: July 13, 2024 Team Status: Active Member Role Status Dates Demetrius Cooper MD Primary Care Provider Active Start: July 17, 2024 HUMBERTO Harleyeferring ProviderActiveStart: July 17, 2024 Dennis Gray , MDActiveStart: July 17, 2024 Mhrick Faustin , MYAttending ProviderActiveStart: July 17, 2024 Team Status: Active Member Role Status Dates Demetrius Cooper MD Primary Care Provider Active Start: July 20, 2024 HUMBERTO Harleyeferring ProviderActiveStart: July 20, 2024 Dennis Gray , MYAttending ProviderActiveStart: July 20, 2024 Talib Faustin MDOther ProviderActiveStart: July 20, 2024 Team Status: Active Member Role Status Dates Dennis Gray MD Attending Provider Active Start: July 20, 2024 [facility] ProviderActiveStart: July 20, 2024 Team Status: Active Member Role Status Dates Demetrius Cooper MD Primary Care Provider Active Start: July 26, 2024 HUMBERTO Harleyeferring ProviderActiveStart: July 26, 2024 Dennis Gray , MDActiveStart: July 26, 2024 rick Faustin , MDAttending ProviderActiveStart: July 26, 2024 Team Status: Active Member Role Status Dates Demetrius Cooper MD Primary Care Provider Active Start: July 27, 2024 Mary Schneider , MDReferring ProviderActiveStart: July 27, 2024 Dennis Gray , MDActiveStart: July 27, 2024 Talib Faustin MDOther ProviderActiveStart: July 27, 2024 Luisana M Johns , MDAttending ProviderActiveStart: July 27, 2024 Team Status: Active Member Role Status Dates Dennis Gray MD Attending Provider Active Start: July 27, 2024 Demetrius Cooper , MDPrimary Care ProviderActiveStart: July 27, 2024 Team Status: Active Member Role Status Dates Demetrius Cooper MD Primary Care Provider Active Start: July 24, 2024 HUMBERTO Harleyeferring ProviderActiveStart: July 24, 2024 Dennis Gray , MYAttending ProviderActiveStart: July 24, 2024 Talib Faustin MDOther ProviderActiveStart: July 24, 2024 Team Status: Active Member Role Status Dates Demetrius Cooper MD Primary Care Provider Active Start: August 03, 2024 HUMBERTO Harleyeferring ProviderActiveStart: August 03, 2024 Dennis Gray MDAttending ProviderActiveStart: August 03, 2024 Talib Faustin MDOther ProviderActiveStart: August 03, 2024 Team Status: Active Member Role Status Dates Dennis Gray MD Attending Provider Active Start: August 03, 2024 IRWIN Fernandesrimary Care ProviderActiveStart: August 03, 2024 Team Status: Active Member Role Status Dates Dennis Gary MD Attending Provider Active Start: August 10, 2024 Demetrius Cooper , IRWINrimary Care ProviderActiveStart: August 10, 2024 Team Status: Active Member Role Status Dates Demetrius Cooper MD Primary Care Provider Active Start: August 10, 2024 HUMBERTO Harleyeferring ProviderActiveStart: August 10, 2024 Norleena R Isaac , MDAttending ProviderActiveStart: August 10, 2024 Chavez Tolliver ProviderActiveStart: August 10, 2024 Team Status: Active Member Role Status Dates Demetrius Cooper MD Primary Care Provider Active Start: August 16, 2024 Mary Schneider , HUMBERTOefgopaling ProviderActiveStart: August 16, 2024 Dennis Gray , MYAttending ProviderActiveStart: August 16, 2024 Mhd Yajess Lamas-Delvin , MDActiveStart: August 16, 2024 Team Status: Active Member Role Status Dates Demetrius Cooper MD Primary Care Provider Active Start: August 18, 2024 HUMBERTO Harleyeferring ProviderActiveStart: August 18, 2024 Dennis Gray , MDActiveStart: August 18, 2024 Mhd Ramin Faustin , MDAttending ProviderActiveStart: August 18, 2024 Team Status: Active Member Role Status Dates Demetrius Cooper MD Primary Care Provider Active Start: August 20, 2024 Maye Chavez ProviderActiveStart: August 20, 2024 Jaiden Nance MDAdmkarla Provider, Attending ProviderActiveStart: August 20, 2024 Team MemberRelationshipSpecialtyStart DateEnd Date Demetrius Cooper MD [address] [facility] [place] [address] PCP - GeneralFamily Dvsorzxk79/26/24Team MemberRelationshipSpecialtyStart Date End Date Demetrius Cooper MD [address] [place] [phone] PCP - GeneralFamily Medicine01/26/24 Clarissa Corado MD Referring PhysicianNeurology08/03/23Team MemberRelationshipSpecialtyStart DateEnd Date Demetrius Cooper MD [address] [place] [phone] PCP - Generalmily Medicine01/26/24 Clarissa Corado MD Referring PhysicianNeurology08/03/23 Team Status: Active Member Role Status Dates Demetrius Cooper MD Primary Care Provider Active Start: September 25, 2024 Mary Schneider , MDReferring ProviderActiveStart: September 25, 2024 Dennis Gray , MDActiveStart: September 25, 2024 rick Faustin , MDAttending ProviderActiveStart: September 25, 2024 Team Status: Inactive Member Role Status Dates Demetrius Cooper MD Primary Care Provider Active Start: September 26, 2024 End: September 26, 2024Stefanie Engle ProviderActiveStart: September 26, 2024 End: September 26, 2024Team MemberRelationshipSpecialtyStart DateEnd Date Demetrius Cooper MD [address] [place] [address] [facility]/24 Clarissa Corado MD Referring PhysicianNeurology08/03/23Team MemberRelationshipSpecialtyStart DateEnd Date Demetrius Cooper MD [address] [place] [address] [facility]/26/24 Clarissa Corado MD Referring PhysicianNeurology08/03/23Team MemberRelationshipSpecialtyStart DateEnd Date Demetrius Cooper MD [address] [place] [address] [facility]/26/24 Clarissa Corado MD Referring PhysicianNeurology08/03/23 Team Status: Inactive Member Role Status Dates Demetrius Cooper MD Primary Care Provider Active Start: October 03, 2024 End: October 03, 2024Fredterence Ross , DOAttending ProviderActiveStart: October 03, 2024 End: October 03, [...] Care Provider Active Start: November 23, 2024 HUMBERTO Harleyeferring ProviderActiveStart: November 23, 2024 Mhd Yaser Al-Marrawi [...] 2024Team MemberRelationshipSpecialtyStart DateEnd Date Demetrius Cooper MD [address] [place] [address] [place] [address] [facility]04/[facility]/24 Team Status: Active Member Role Status [...] Care Provider Active Start: December 26, 2024 HUMBERTO Harleyeferring ProviderActiveStart: December 26, 2024 rick Faustin MDAttending ProviderActiveStart: December 26, 2024 Team MemberRelationshipSpecialtyStart DateEnd Date Demetrius Cooper MD [address] [place] [address] [facility]01/26/24 Clarissa Corado MD Referring PhysicianNeurology08/03/23Team MemberRelationshipSpecialtyStart DateEnd Date Demetrius Cooper MD [address] [place] [address] PCP - [facility] Medicine01/26/24 Clarissa Corado MD Referring PhysicianNeurology08/03/23 Team Status: Inactive Member Role Status Dates Demetrius Cooper MD Primary Care Provider Active Start: February 22, 2025 End: February 22, 2025Stfeanie Garnica ProviderActive Start: February 22, 2025 End: February 22, 2025 Team Status: Active Member Role Status Dates Demetrius Cooper MD Primary Care Provider Active Start: February 22, 2025 Samantha Harley ProviderActiveStart: February 22, 2025 Talib Faustin Glynnending ProviderActiveStart: February 22, 2025 Team Status: Active Member Role/Relationship Status Dates Demetrius Cooper MD Primary Care Provider Active Team Status: Inactive Member Role/Relationship Status Dates Demetrius Cooper MD Primary Care Provider Active Start: December 26, 2024 End: December 26, 2024Becky Crouch LESTERNAttenmonica ProviderActive Start: December 26, 2024 End: December 26, 2024 Team Status: Inactive Member Role/Relationship Status Dates Demetrius Cooper MD Primary Care Provider Active Start: February 22, 2025 End: February 22, 2025Afshanshi Debora Crouch APRNAttenmonica ProviderActive Start: February 22, 2025 End: February 22, 2025 Team Status: Active Member Role/Relationship Status Dates Demetrius Cooper MD Primary Care Provider Active Start: February 23, 2025 HUMBERTO Harleyeferring ProviderActiveStart: February 23, 2025 rick Ramin YingAfshanethan Glynnending ProviderActiveStart: February 23, 2025 Team Status: Inactive Member Role/Relationship Status Dates Demetrius Cooper MD Primary Care Provider Active Start: March 08, 2025 End: March 08helio Russell MYAttending ProviderActiveStart: March 08, 2025 End: March 08, 2025 Goals (unrecognized section and content) Goals may be documented in a n alternate section Source Comments (unrecognize d section and content) In the event this informatio n is protected by the Federal Confidentiality of Alcohol and Drug Abuse Patient Records regulations: The Federal rules restrict any use of the information to criminally investigate or prosecute any alcohol or drug abuse patient.[facility] HospitalIn the event this information is protected by the Federal Confidentiality of Alcohol and Drug Abuse Patient Records regulations: The Federal rules restrict any use of the information to criminally investigate or prosecute any alcohol or drug abuse patient.[facility] HospitalIn the event this information is protected by the Federal Confidentiality of Alcohol and Drug Abuse Patient Records regulations: The Federal rules restrict any use of the information to criminally investigate or prosecute any alcohol or drug abuse patient.[facility] HospitalIn the event this information is protected by the Federal Confidentiality of Alcohol and Drug Abuse Patient Records regulations: The Federal rules restrict any use of the information to criminally investigate or prosecute any alcohol or drug abuse patient.[facility] HospitalIn the event this information is protected by the Federal Confidentiality of Alcohol and Drug Abuse Patient Records regulations: The Federal rules restrict any use of the information to criminally investigate or prosecute any alcohol or drug abuse patient.[facility] PRN Active and Recently Administ ered Medications (unrecognized section and content) Medication [id number]//[id number]/ oxymetazoline (Afrin) 0.05 % nasal spray (CANCELED) [...] BE BASED ON THE PRIMARY CLINICAL RECORDS. [employer] provides no warranty or guarantee of the accuracy or completeness of information in this document.
[2025-03-12 12:27] VITALS: BP 124/70; PULSE 84; TEMP 36.4; O2SAT 96
[2025-03-12 13:07] VITALS: BP 109/69; BP 99/58; PULSE 82; PULSE 83; O2SAT 94; O2SAT 96
[2025-03-12] MEDS: LIDOCAINE HCL 2% 400 MG/20 ML MDV INJ (13:10)
[2025-03-12] MEDS: METHYLPREDNISOLONE ACETATE 40 MG/ML VIAL 80 MG INJ (13:10)
[2025-03-12] MEDS: BUPIVACAINE HCL 0.25% PF 25 MG/10 ML VIAL 4 ML INJ (13:10)
[2025-03-12] MEDS: IOHEXOL 240 MG/ML - 10 ML VIAL 24 MG INJ (13:10)
--- NOTE | 2025-03-12 13:10 | W.PM.PROCNOT ---
Date of procedure: 03/12/25 Pre-op diagnosis: Pain due to bilateral sacroiliitis Post-op diagnosis: same as pre-op Procedure: Procedure: Bilateral sacroiliac joint injection Medications: Bupivacaine 0.25% 4cc, depomedrol 40mg x2 After informed consent was obtained, the patient was brought to the medical procedure unit and placed in the prone position, when a timeout was completed verifying correct patient, procedure, site, positioning, implant, and/or special equipment.? The skin overlying the area was prepped and draped in standard sterile fashion using alcohol.? A 25-gauge needle was inserted towards the left sacroiliac joint under direct fluoroscopic imaging.? Needle tip was advanced until the joint was encountered.? We instilled a total of 2 mL of solution.? The same procedure was then completed on the right side.? Postoperatively needles were removed.? The patient tolerated the procedure well without complication.? The patient reported reduction in pain symptoms postoperatively. Anesthesia: Local Surgeon: uSrjit Meléndez Pathology: none sent Condition: stable Disposition: no change
== END 2025-03-12 13:15 | disposition home or self-care (01) ==
PROVIDERS: PCP Family Medicine; Visit Provider Anesthesiology
DX: M46.1 Sacroiliitis, not elsewhere classified (principal); E11.8 Type 2 diabetes mellitus with unspecified complications; Z79.84 Long term (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 of oral hypoglycemic drugs
CPT/HCPCS: 27096; 36415; 82948; J0665; J1010; Q9966

== ENCOUNTER 2025-03-22 13:05 | Outpatient (OUT) | payer MEDICARE, SELFPAY ==
--- OUTSIDE RECORDS SUMMARY | 2024-01-31 08:00 | XMS_ITS ---
Author Organization The [facility] in [place] Address [address] [place] [address] Care Team Providers Care Copy Preparer Name Role Phone MarekHaris osullivan Primary Care Provider [phone] Susana Momin [phone] REASON FOR VISIT Nail Care 1 year diabetic foot assessment Encounters Encounter Location Date Provider Diagnosis [facility] (PODIATRY) [address] [place] [address] [place] [address] 01/31/2024 Susana Momin Plan Of Treatment Next Appt Details Provider Name:Haris Adrian Sinclair, 10:30:00 AM, [address] [facility] [place], [address], Progress Notes * Jair GROSSDOB:1940 (84 yo M)Acc No.[id number]:01/31/2024 UNLOCKED PROGRESS NOTE Follow Up Patient: Cuate MELISSAJair :?NILAY Banegas-CDOB:1940???Age:83 Y ???Sex:MaleDate:4Phone:[phone]:[address] [place] [address]Pcp:Haris Adrian Treadwell In:12:43 PM ESTCheck Out:01:06 PM EST Subjective: * Chief Complaints: * 1 . Nail Care 1 year diabetic foot assessment. * Medical History: Objective: * Vitals: Assessment: Plan: * Treatment: * * Electronic signature of Susana Momin PA-C on 03/22/2025 at 01:08 PM ESTSign off status: PendingVisit Status:?CANC (Cancelled) * Provider: Rachel Momin PA-C Date: 0 01/31/2024 Generated for Printing/Faxing/eTransmitting on:?03/22/2025 01:08 PM EST
--- OUTSIDE RECORDS SUMMARY | 2024-07-31 08:00 | XMS_ITS ---
Author Organization [facility] in [place] Address [address] [place] [address] Care Team Providers Care Catering Truck Operator Name Role Phone Haris Sinclair Primary Care Provider Susana Momin [phone] REASON FOR VISIT nail care Encounters Encounter Location Date Provider Diagnosis [facility] (PODIATRY) [address] [place] [address] [place] [address] 07/31/2024 Susana Momin Plan Of Treatment Next Appt Details Provider Name:Hairs Sinclair, 10:30:00 AM, [address] [place] [place], [address], Progress Notes * Jair GROSSDOB:1940 (84 yo M)Acc No.[id number]:07/31/2024 UNLOCKED PROGRESS NOTE Nurse Visit Patient: Jair HESS :?JODI BanegasCDOB:1940???Age:83 Y ???Sex:MaleDate:07/31/2024Phone:[phone]:[address] [place] [address] [place], [place]-[id number]:Haris Campbell Yahir Subjective: * Chief Complaints: * 1 . Nail care. * Medical History: Objective: * Vitals: Assessment: Plan: * Treatment: * * Electronic signature of Susana Momin PA-C on 03/22/2025 at 01:08 PM ESTSign off status: PendingVisit Status:?CANC (Cancelled) * Provider: Rachel Momin PA-C Date: 0 07/31/2024 Generated for Printing/Faxing/eTransmitting on:?03/22/2025 01:08 PM EST
--- OUTSIDE RECORDS SUMMARY | 2025-03-22 13:08 | XMS_ITS | Clinical Summary ---
Author Organization [facility] Address [address] [place] [address] Care Team Providers Care Account Technician Name Role Phone Anjali Ruby CNP Unavailable [phone] Consuelo Mcghee MD Unavailable Demetrius Mirza MD Primary Care Provider [phone] Allergies Active AllergyReactionsCriticalityNoted DateCommentsAdhesive Tape-SiliconesRash 01/19/2019NiacinItching,Qzmazzs2701/19/2019 Medications MedicationSigDispense QuantityRefillsLast FilledStart DateEnd DateStatus isosorbide mononitrate ER (IMDUR) 30 mg 24 hr tablet Take 30 mg by mouth.08/31/2022ctive clopidogrel (PLAVIX) 75 mg tablet 02/27/2023ctive furosemide (LASIX) 20 mg tablet Take 20 mg by mouth.04/24/2020Active fluticasone (FLONASE) 50 mcg/actuation nasal spray 1 [place].08/24/2022ctive omeprazole (PRILOSEC) 40 mg capsule Take 40 [...] RecordedNational Score (1-100), lower number is lower xhrn430804/01/2023State Score (1-10), lower number is lower lqzn13506/01/2022ata from: https://www.neighborhoodatlas.medicine.[facility].edu/. Last address used for [address]/01/2023Sex and Gender InformationValueDate RecordedSex Assigned at BirthNot on fileLegal WdmMexy22/18/2023 7:42 AM EDTGender Identity Not on fileSexual OrientationNot on file Last Filed Vital Signs Vital SignReadingTime TakenCommentsBlood Cwgdivhp166/6611/ 1:15 PM EST Ifnvg312404/01/2023 1:15 PM LQYGpudmvuepte17.2 ??C (97.1 ??F)04/01/2023 1:15 PM ESTRespiratory Rate--Oxygen Rckxjgcocv58%04/01/2023 1:15 PM ESTInhaled Oxygen Concentration--Sxfxoe18.8 kg (167 lb)04/01/2023 1:15 PM ESTHeight--Body Mass Index-- Plan of Treatment Health MaintenanceDue DateLast DoneCommentsAnxiety Chjimtgmh37/15/1959Depression Ljvrhvwfe10/15/1958DTaP,Tdap,Td Vaccine (1 - Tdap)10/29/1958Diabetes Screening 10/29/1984RSV Vaccine (1 - 1-dose 75+ series)10/29/2014dvance Directive Urzdhesxnw23/01/2025Medicare Advantage Annual Wellness Visit05/17/2024ovid-19 Vaccine (2024- season), 11/25/2021, 03/06/2021, Additional history existsInfluenza Vaccine (#1)5106/12/2022, 02/18/2021, 02/14/2020, Additional history existsPneumococcal Vaccine: 50+Completed 11/22/2023, 01/30/2014Shingrix PifwpgfBjzaojzyo43/25/2024, 11/22/2023 Insurance Care Teams Team MemberRelationshipSpecialtyStart DateEnd Date Demetrius Mirza MD [address] [place] [address] PCP - GeneralFamily Begkdesn90/11/24 Anjali Ruby, LINEN ROOM WORKER [address] [place] [address] ReferringFamily Ftrhvwdr46/18/23 Consuelo Mcghee MD [address] [id number] Ent - Cjjtlfcsdauqsr90/25/24
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
--- OUTSIDE RECORDS SUMMARY | 2025-03-22 13:08 | XMS_ITS | Clinical Summary ---
Author Organization [facility] Address [address] [place] [address] Phone Care Team Providers Care Esthetics Instructor Name Role Phone Demetrius Mirza MD Primary Care Provider [phone] Allergies Active AllergyReactionsCriticalityNoted NaziSjzmiegkSsehmnqkMhjhIef53/12/2024 Adhesive Tape-VpqymvnheTkqkXox86/05/2019NiacinHives,Itching,Nxqmaav5501/19/2019 Medications MedicationSigDispense QuantityRefillsLast FilledStart DateEnd DateStatus amLODIPine (Norvasc) 5 mg tablet Take 1 tablet (5 mg) by mouth once daily.02/21/2024ctive aspirin 81 mg EC tablet Take 1 tablet (81 mg) by mouth once daily.Active uxxfezzlsz-hydgsvqbwsxij-ptrm 50-325-40 mg tablet Take 1 tablet by [...] 1 each.Active Active Problems ProblemNoted DateDiagnosed DatePrimary aeezucnncgrj05/26/2024oronary artery disease involving autologous artery coronary bypass graft05/11/2024acemaker 05/11/2024Stented coronary rysols3905/11/2024Ventricular yjtaguwflyz16/26/2024OSA (obstructive sleep apnea)05/11/2024Gastroesophageal reflux qsihgxb8705/11/2024 Zlydxhjap36/26/2024iabetes mellitus, type Oral ntvlxf5904/07/2024 Malignant neoplasm of floor of mouth04/07/2024 Encounters DateTypeDepartmentCare BxuwGygpllhwirm52/22/2025bstract [facility] [address] [place] [address] Mary Schneider MD from Last 3 Months Family History Medical HistoryRelationNameCommentsCancerFatherPaul J BauerHearing lossFather Daniel J BauerVision lossMaternal GrandfatherGeorge SmithHypertensionMaternal GrandmotherEdna SmithAsthmaMotherDoris M BauerHypertensionMotherDoris M Bennett Vision lossOtherAnna BremmserHypertensionPaternal GrandmotherKatherine Bennett Vision lossPaternal GrandmotherKatherine BauerCancerSisterJudy ReisigMotion SicknessSisterJudy ReisigRelationNameStatusCommentsFatherPaul J BauerAlive Maternal GrandfatherGeorge SmithAliveMaternal GrandmotherEdna SmithAliveMother Estee M BauerAliveOtherAnna BremmserAlivePaternal GrandmotherKatherine Bennett AliveSisterJudy ReisigAlive Social History Tobacco UseTypesPacks/DayYears UsedDateSmoking Tobacco: RxlmdmUqhattmfpm561Onrd: 05/17/1983Smokeless Tobacco: Former Tobacco Cessation:Counseling Given: No Alcohol UseStandard Drinks/WeekCommentsYes2 (1 standard drink = 0.6 oz pure alcohol)or less or weekPHQ-2AnswerDate RecordedPatient Health Questionnaire-2 Tohsv409Sex and Gender InformationValueDate RecordedSex Assigned at BirthNot on fileLegal OmvEgal67/25/2022 9:24 AM ESTGender VkexcqtuBhhy75/26/2024 5:56 AM ESTSexual KsgawvdzqsjMslwzzyj37/26/2024 5:56 AM EST Last Filed Vital Signs Vital SignReadingTime TakenCommentsBlood Anklyxkc742/6907 1:30 PM EDT Ecjcx669706/05/2024 2:13 PM RRIYhbzqavtxia37 ??C (96.8 ??F)09/11/2024 1:07 PM EDT Respiratory Cdfq262206/05/2024 2:13 PM ESTOxygen Deujbuaula61%06/05/2024 2:13 PM ESTInhaled Oxygen Concentration--Azwqxu04.7 kg (160 lb 2.6 oz)12/11/2024 1:30 PM QHHFqgbmo801.1 cm (5' 5 )09/11/2024 1:07 PM EDTBody Mass Index26.65009/11/2024 1:07 PM EDT Plan of Treatment DateTypeDepartmentCare Team (Latest Contact Info)Ntgaqshifnr24/23/2026 1:30 PM ESTOffice Visit [facility] [address] [place] [phone] [place] [address] [place] [address] Health MaintenanceDue DateLast DoneCommentsDiabetes: Hemoglobin A1C1939 Diabetes: Urine Protein Zrvwjkaof75/15/5003Zirzodiwjvigqz48/15/1940Lipid Panel 1940Medicare Annual Wellness Visit (AWV)1940Thyroglobulin Test 1940Diabetes: Retinopathy Nzuxukybe28/15/1950DTaP/Tdap/Td Vaccines (1 - Tdap)10/29/1961Influenza Vaccine (#1)5106/18/2023, 04/12/2023, 02/18/2021, Additional history existsCOVID-19 Vaccine ( season) /, 11/25/2021, 03/06/2021, Additional history exists Creatinine Level/otassium Level Pneumococcal CoxitfsZyvksppzz01/08/2024, 01/30/2014Zoster VaccinesCompleted 02/09/2024, 4RSV High Risk: (Elderly (60+) or Population) Ahztpphfw28/06/2024HIB VaccinesAged OutNo longer eligible based on patient's age to complete this topicHPV VaccinesAged OutNo longer eligible based on patient's age to complete this topicHepatitis A VaccinesAged OutNo longer eligible based on patient's age to complete this topicHepatitis B VaccinesAged OutNo longer eligible based on patient's age to complete this topicIPV VaccinesAged OutNo longer eligible based on patient's age to complete this topicMeningococcal VaccineAged OutNo longer eligible based on patient's age to complete this topic Rotavirus VaccinesAged OutNo longer eligible based on patient's age to complete this topic Procedures Procedure NamePriorityDate/TimeAssociated DiagnosisCommentsBASIC METABOLIC PANEL Xhakrkn1904/11/2024 9:14 AM EST Oral lesion 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) from Last 3 Months or Most Recently Relevant to Health Maintenance Results * (ABNORMAL) Basic Metabolic Panel (04/11/2024 9:14 AM EST)ComponentValueRef RangeTest MethodAnalysis TimePerformed AtPathologist WgzdrwltuDseujre573(H)74 - 99 mg/dL LAB CHEMISTRY METHOD 04/11/2024 11:09 AM [facility] XHZOkoaev772264 - 145 mmol/L LAB CHEMISTRY METHOD 04/11/2024 11:09 AM [facility] LABPotassium4.53.5 - 5.3 mmol/L LAB CHEMISTRY METHOD 04/11/2024 11:09 AM [facility] CUBBjkkijyp03142 - 107 mmol/L LAB CHEMISTRY METHOD 04/11/2024 11:09 AM [facility] JDRZxctltbpetd2413 - 32 mmol/L LAB CHEMISTRY METHOD 04/11/2024 11:09 AM [facility] LABAnion Sfr3389 - 20 mmol/L LAB CHEMISTRY METHOD 04/11/2024 11:09 AM [facility] LABUrea Ugmmjtzw916 - 23 mg/dL LAB CHEMISTRY METHOD 04/11/2024 11:09 AM [facility] LABCreatinine0.960.50 - 1.30 mg/dL LAB CHEMISTRY METHOD 04/11/2024 11:09 AM [facility] EHPiRMU65>60 mL/min/1.73m*2 LAB CHEMISTRY METHOD 04/11/2024 11:09 AM [facility] LABComment: Calculations of estimated GFR are performed using the 2020 CKD-EPI Study Refit equation without therace variable for the IDMS-Traceable creatinine methods. https://jasn.asnjournals.org/content//ASN.9340169970 Calcium9.98.6 - 10.6 mg/dL LAB CHEMISTRY METHOD 04/11/2024 11:09 AM [facility] LABSpecimen (Source)Anatomical Location / LateralityCollection Method / VolumeCollection TimeReceived TimeBloodVenous blood specimen / UnknownVenipuncture / Wxdjmai9404/11/2024 9:14 AM EST04/11/2024 10:37 AM EST Narrative Authorizing ProviderResult TypeResult StatusTracy Adrian JERONIMO BLOOD ORDERABLESFinal ResultPerforming OrganizationAddressCity/State/ZIP CodePhone Number [facility] [address] [facility] [address] [place], [place] [address] from Last 3 Months or Most Recently Relevant to Health Maintenance Insurance Advance Directives For more information, please contact: [phone] (Available ) TypeDate RecordedPatient RepresentativeExplanationHealthcare Power of Atty 05/11/2024Living Will05/11/2024 Care Teams Team MemberRelationshipSpecialtyStart DateEnd Date Demetrius Mirza MD [address] [facility] [place] [address] PCP - GeneralFamily Cbvluefp97/26/24
--- OUTSIDE RECORDS SUMMARY | 2025-03-22 13:08 | XMS_ITS | Encounter Summary ---
Author Organization [facility] Address [address] [place] [address] Care Team Providers Care Dealer Relationship Manager Name Role Phone Juan Corado MD Unavailable [phone] Sabino Cooper MD Primary Care Provider [phone] Encounter Details DateTypeDepartmentCare Team (Latest Contact Info)Qszarpjvytb89/15/2024Clinisync Result Encounter [facility] Department Unsolicited Luc Mcghee MD [address] [place] [address] Social History Tobacco UseTypesPacks/DayYears UsedDateSmoking Tobacco: FormerCigarettesPassive Smoke Exposure: Past Comments:Years smoked: 25 Alcohol UseStandard Drinks/WeekCommentsYes0 (1 standard drink = 0.6 oz pure alcohol)1 or 2 drinks/day, monthly or less; Caffeine: 1 drink/daySex and Gender InformationValueDate RecordedSex Assigned at BirthNot on fileLegal SexMale 07/29/2022 10:09 PM EDTGender IdentityNot on fileSexual OrientationNot on file documented as of this encounter Plan of Treatment Not on file documented as of this encounter Procedures Procedure NamePriorityDate/TimeAssociated DiagnosisCommentsUS BIOPSY LYMPH NODE 02/29/2024 12:52 PM EDT documented in this encounter Results * US BIOPSY LYMPH NODE (02/29/2024 12:52 PM EDT)Anatomical RegionLaterality ModalityRadiographic ImagingSpecimen (Source)Anatomical Location / Laterality Collection Method / VolumeCollection TimeReceived Time02/29/2024 12:52 PM EDT Narrative 02/29/2024 12:54 PM EDT [facility] ?[address] ? [place] [address] ? Ultrasound Report ? Signed ? Patient: JEREMIE GROSS ?MR#: [id number] ?? : 1940 ?Acct:[id number] ?? Age/Sex: 83 / M ?ADM Date: 10/15/24 ?? Loc: US ? Attending Dr: Luc Mcghee M.D. ? Ordering Physician: Luc Mcghee M.D. ?? Date of Service: 02/29/24 ?? Procedure(s): US biopsy lymph node ?? Accession Number(s): [id number] ? cc: SABINO COOPER ; Luc Mcghee M.D. ? [facility] ? [address] [facility] ? [place] [address] ? Patient Name: ?? JEREMIE GROSS ? MRN: [facility]:[id number] ? date: 1940 ?Sex: M ?? Assigned Patient Location: [place] ?? Current Patient Location: ? Accession/Order Number: [id number] ?? Exam Date: 02/29/2024 ??08:55 ?Report Date: 02/29/2024 ??12:52 ? At the request of: ?? LUC ??FATOUMATA ? Procedure: ??US biopsy lymph node ? EXAMINATION: US biopsy lymph node ? HISTORY: Neck Mass ? COMPARISON: No relevant comparison available. ? TECHNIQUE: After obtaining informed consent, ultrasound-guided fine needle ?? aspiration was performed in the usual sterile manner. ? FINDINGS: ?? IMAGING: Ultrasound. ?? BIOPSY NEEDLE: 20-gauge Temno spring loaded core biopsy needle with an ?? 18-gauge ?? 6 cm by ?? LOCATION: Round 1.4 cm right neck mass/lymph node ?? SPECIMEN TYPE: 3 core samples ?? LOCAL ANESTHETIC: 4 cc 1% buffered lidocaine ?? COMPLICATIONS: None. ?? LABORATORY: Prepared slide smears and washings for cell block evaluation. ?? OTHER: Negative. ?? PATHOLOGY: Pending. An addendum will be added when results are available. ? US/US biopsy lymph node ?? IMPRESSION: ? 1. Uneventful ultrasound guided core biopsy ?? 2. Pathology results are pending. ? Electronically authenticated by: ERWIN ??TERRIE ?? Date: 02/29/2024 ??12:52 ? Dictated By: ?Erwin Falcon M.D. ? Signed By: ?02/28/24 1254 ? DD/ 1252 ? TD/TT: ? Digital Sales Executive: Procedure Note Radiology, Radiologist, - 02/29/2024 [place] [address] Ultrasound Report Signed Patient: JEREMIE GROSS PMR#: [id number] : 1940Acct:[id number] Age/Sex: 83 / MADM Date: 02/29/24 Loc: US Attending Dr: Luc Mcghee M.D. Ordering Physician: Luc Mcghee M.D. Date of Service: 02/29/24 Procedure(s): US biopsy lymph node Accession Number(s): [id number] cc: SABINO COOPER ; Luc Mcghee M.D. The [place] [address] Patient Name: JEREMIE GROSS MRN: [id number] date: 1940 Sex: M Assigned Patient Location: [place] Current Patient Location: Accession/Order Number: [id number] Exam Date: 02/29/2024 08:55 Report Date: 02/29/2024 12:52 At the request of: LUC MCGHEE Procedure: US biopsy lymph node EXAMINATION: [...] Dictated By: Erwin Falcon M.D. Signed By:02/29/24 1254 DD/ 1252 TD/TT: Digital Sales Executive: Authorizing ProviderResult TypeResult StatusHisara Mcghee MDIMG XR PROCEDURES Final Result documented in this encounter Visit Diagnoses Not on filedocumented in this encounter Care Teams Team MemberRelationshipSpecialtyStart DateEnd Date Sabino Cooper MD [address] [place] [address] PCP - GeneralFamily Medicine01/26/24 Juan Corado MD [address] [facility] [place] [address] Referring PhysicianNeurology08/03/23documented as of this encounter
--- OUTSIDE RECORDS SUMMARY | 2025-03-22 13:08 | XMS_ITS | Clinical Summary ---
Author Organization [employer] [facility] Address [id number] [address] [place] [address] Care Team Providers Care Damage Inside Adjuster Name Role Phone Unavailable Primary Care Provider Unavailabl e Allergies Active AllergyReactionsCriticalityNoted DateCommentsAdhesive Tape-Silicones 01/19/20196043Zgwnfc43/05/2019 Medications MedicationSigDispense QuantityRefillsLast FilledStart DateEnd DateStatus glimepiride (AMARYL) 2 mg tablet Indications:Type 2 diabetes mellitus without complication, without long-term current use of insulin ([facility])Take 1 tablet (2 mg total) by [...] (six) hours as needed for muscle spasms.Active qldmdaliwu-hnlxkxunls-oye-cod (FIORICET WITH CODEINE) 20-210-07-30 mg per capsule Take 1 capsule by [...] mouth daily.Active Active Problems ProblemNoted DateDiagnosed DatePreventative [facility] care01/29/2019 Assessment & Plan (01/29/2019 8:01 PM EDT): DATE WHEN VACCINE ------- --FLU YRLY IN FALL --TETANUS Q 10 YRS nwiva4419 --HZ ONCE AGE 59 Needs 2019 --PREVNAR [...] arb/arti, statin On arb, asa, statin Seasonal tztnmtokc17/15/2019 Overview (01/29/2019): flnoase CAD (coronary artery disease)01/29/2019 [...] Hearing Aids Hyperlipidemia Overview (01/29/2019): crestor , [place] 3 Hypertension Overview (01/29/2019): Amlodipine, avapro Migraines Overview (01/29/2019): fioricet with codiene, depakote Neuropathy Overview (01/29/2019): feet / DM / gabapentin NPH (normal pressure hydrocephalus) Overview (01/29/2019): vp security shunt Osteoarthritis Overview (01/29/2019): Mobic, tyenol, zanaflex PacemakerPeripheral edema Overview (01/29/2019): lasix Prostate cancerSkin cancerUrine incontinence Overview (01/29/2019): post prostate suregery / 2 urethral valve surgeries Insomnia Overview (01/29/2019): ambien Cardiac dysrhythmia Overview (01/29/2019): Pacemaker, plavix, asa, sotalol Resolved Problems ProblemNoted DateDiagnosed DateResolved XdviSdplwrqgpzuijl84/15/2019 Overview (01/29/2019): colonoscopy Immunizations ImmunizationAdministration DatesNext DueInfluenza, Chkpafluzsc39/08/2018 Pneumococcal Esvqptbjj47/16/2014 Family History Medical HistoryRelationNameCommentsCOPDMotherHypertensionMotherKidney failure MotherRelationNameStatusCommentsFatherDeceased (Age 98)old age , glaucomaMother (Age 88)liver failure, CHF ESRD dialysis Social History Tobacco UseTypesPacks/DayYears UsedDateSmoking Tobacco: FormerCigarettesPipe CigarsSmokeless Tobacco: FormerSnuff, Chew Tobacco Cessation:Counseling Given: Yes Alcohol UseStandard Drinks/WeekCommentsNot Currently0 (1 standard drink = 0.6 oz pure alcohol)RARELYChildcareAnswerDate VkbghkxvEdwjgjrqnGmlyiib99/28/2019 EmploymentAnswerDate BpzfxfivGvwzxvlqofWordkln07/28/2019Purpose - LifeAnswerDate RecordedPurpose and direction in cxwoWwsjvui57/11/2021ex and Gender Information ValueDate RecordedSex Assigned at BirthNot on fileLegal PdxFhqe1901/11/2019 11:13 AM EDTGender IdentityNot on fileSexual OrientationNot on file Last Filed Vital Signs Vital SignReadingTime TakenCommentsBlood Yosbtnno818/7409 2:35 PM EDT Myhfm364501/19/2019 2:35 PM SCBQvbxssrhbzh25.3 ??C (97.4 ??F)01/19/2019 2:35 PM EDTRespiratory Ypmo6116 2:35 PM EDTOxygen Bovxgcdevo78%01/19/2019 2:35 PM EDTInhaled Oxygen Concentration--Vblihh58.2 kg (203 lb 4.8 oz)01/19/2019 2:35 PM EDTHeight--Body Mass Index-- Plan of Treatment Health MaintenanceDue DateLast DoneCommentsDepression Navevjkwy01/15/1952Tobacco Usjiwchll94/15/1952DTaP,Tdap and Td Vaccines (1 - Tdap)10/29/1958Zoster (Shingles) Vaccine (1 of 2)10/29/1958Fall Risk Anjprfbtn19/15/2005RSV ( or age 60+ yrs) (1 - 1-dose 75+ series)10/29/2014Influenza Aivvwng0601/15/2025 01/22/2018 Medical Devices Not on file Insurance
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
--- OUTSIDE RECORDS SUMMARY | 2025-03-22 13:10 | XMS_ITS | Patient Health Record ---
Author Organization [facility] in [place] Address [address] [place] [address] Care Team Providers Care Marble Supervisor Name Role Phone Haris Armstrong Primary Care Provider Merrill, Susana Unavailable [phone] Allergies Allergen (clinical drug ingredient) Drug/Non Drug Allergy documented on EMR Reaction Allergy Type Onset Date Status NiaspanUnknownDrug AllergyActiveAdhesiveUnknownAllergyActive Results Component Value Reference Range Notes CREATININE Reviewed date:02/02/2025 04:59:14 PM Interpretation: Performing Lab: Notes/Report: [facility] , Creatinine 0.92 0.70-1.30 mg/dL Estimated GFR ( Kalee>60>=60 mL/min/1.73m 2Estimated GFR (Non- Esperanza>60>=60 mL/min/1.73m 2Performing Lab:see noteML - [facility] LBCBC AUTO DIFF Reviewed date:02/07/2025 12:40:42 PM Interpretation: Performing Lab: Notes/Report: [facility] ,White Blood Count6.74.0-11.0 10 3/uLRed Blood Count4.104.70-6.10 10 6/uL Cobojdlhvc07.814.0-18.0 g/hHNuveskeszu29.642.0-54.0 %Mean Corpuscular Twssmg09.1 80.0-94.0 fLMean Corpuscular Gqvebqegvf89.225.9-34.0 pgMean Corpuscular HGB Conc 33.229.9-35.2 g/dLRed Cell Distribution Width13.711.0-15.0 %Platelet Fhtnx857 150-450 10 3/uLMean Platelet Cykxnl82.49.5-13.5 fLNeutrophils Percent Auto59.3 43.0-75.0 %Lymphocytes Percent Auto24.920.5-60.0 %Monocytes Percent Auto9.41.7- 12.0 %Eosinophils Percent Auto4.80.9-7.0 %Basophils Percent Auto0.60.2-2.0 % Immature Granulocytes Pct Auto1.00.0-0.5 %Neutrophils Absolute Auto4.01.4-6.5 10 3/uLLymphocytes Absolute Auto1.71.2-3.8 10 3/uLMonocytes Absolute Auto0.60.3-0.8 10 3/uLEosinophils Absolute Auto0.30.0-0.7 10 3/uLBasophils Absolute Auto0.00.0- 0.1 10 3/uLImmature Granulocytes Abs Auto0.070.00-0.03 10 3/uLPerforming Lab:see noteML - [facility] LBFREE T3 Reviewed date:02/07/2025 12:40:42 PM Interpretation: Performing Lab: Notes/Report: [facility] ,Free T32.842.18-3.98 pg/mLPerforming Lab:see noteML - [facility] LB GLYCOHEMOGLOBIN A1C Reviewed date:02/07/2025 12:40:42 PM Interpretation: Performing Lab: Notes/Report: [facility] ,Glycohemoglobin A1C6.64.5-6.2 % ADA RECOMMENDED LIMIT 4.0 - 6.0 ADA THERAPEUTIC TARGET < 7.0 ACTION SUGGESTED > 7.0 Estimated Average Lmbvxwe926Anesziojlf Lab:see noteML - [facility] LB LIPID PROFILE Reviewed date:02/07/2025 12:40:42 PM Interpretation: Performing Lab: Notes/Report: [facility] ,Qyumfipbqxbrx272<=150 mg/pGBcfwbfeuxyg032<=200 mg/dLHDL Ojtycklhajd1349-46 mg/dL > or =60 mg/dl - LOW CARDIOVASCULAR RISK <40 mg/dl - HIGH CARDIOVASCULAR RISK LDL Cholesterol Ompvvfmqfi05.0 <100 mg/dl OPTIMAL 100-129 mg/dl NEAR OR ABOVE OPTIMAL 130-159 mg/dl BORDERLINE HIGH 160-189 mg/dl HIGH >190 mg/dl VERY HIGH VLDL ZVPWMIWFQES78.2Chol HDL Ratio3.5 3.3 - 4.4 LOW RISK 4.4 - 7.1 AVERAGE RISK 7.1 - 11.0 MODERATE RISK >11.0 HIGH RISK Performing Lab:see note - [facility] LBPROF 14(COMP METB) Reviewed date:02/07/2025 12:40:42 PM Interpretation: Performing Lab: Notes/Report: [facility] ,Wsrsoa702250-739 mmol/LPotassium4.03.5-5.1 mmol/WTaulohop12022-880 mmol/LCarbon Xnjbdxk60.521.0-32.0 mmol/LAnion Gap15.8Sbtmvtf28980-226 mg/dLBlood Urea Trzydmmj91.07.0-18.0 mg/dLCreatinine0.980.70-1.30 mg/dLEstimated GFR ( Kalee>60>=60 mL/min/1.73m 2Estimated GFR (Non- Esperanza>60>=60 mL/min/1.73m 2BUN Creatinine Ratio16.0Mkzmanm1.38.5-10.1 mg/dLBilirubin Total0.50.2-1.0 mg/dL Aspartate Amino Jginbqffvwk8192-87 U/LAlanine Wvyjtanggoojiixi3110-09 U/L Alkaline Jaidnbcnvyf2871-088 U/LTotal Protein7.56.4-8.2 g/dLAlbumin Level3.83.4- 5.0 g/dLGlobulin3.7Albumin Globulin Ratio1.0Performing Lab:see noteML - [facility] LBT4 Reviewed date:02/07/2025 12:40:42 PM Interpretation: Performing Lab: Notes/Report: [facility] ,T4 Thyroxine5.404.50-12.10 ug/dLPerforming Lab:see note - [facility] LBTSH Reviewed date:02/07/2025 12:40:42 PM Interpretation: Performing Lab: Notes/Report: [facility] ,Thyroid Stimulating Hormone3.9490.358-3.740 uIU/mLPerforming Lab:see noteML - [facility] LBPSA Total+% Free Reviewed date:02/08/2025 12:38:26 PM Interpretation: Performing Lab: Notes/Report: [facility] ,Prostate Specific Ag<0.10.0-4.0 ng/mL Mathew ECLIA methodology. According to the [place] [employer], Serum PSA should decrease and remain at undetectable levels after radical prostatectomy. The AUA defines biochemical recurrence as an initial PSA value 0.2 ng/mL or greater followed by a subsequent confirmatory PSA value 0.2 ng/mL or greater. Values obtained with different assay methods or kits cannot be used interchangeably. Results cannot be interpreted as absolute evidence of the presence or absence of malignant disease. PSA, Free<0.02N/A ng/mLRoche ECLIA methodology.% Free PSATNP. % Unable to calculate result since non-numeric result obtained for component test. The table below lists the probability of prostate cancer for men with non-suspicious DIDIER results and total PSA between 4 and 10 ng/mL, by patient age (Javad et al, CAROLANN 1998, 279:1542). % Free PSA 50-64 yr 65-75 yr 0.00-10.00% 56% 55% 10.01-15.00% 24% 35% 15.01-20.00% 17% 23% 20.01-25.00% 10% 20% >25.00% 5% 9% Please note: Javad et al did not make specific recommendations regarding the use of percent free PSA for any other population of men. Performed at: - [facility] [address] [id number] Sweatband Shaper: Sathish Queen PhD, Phone: [phone] Performing Lab:see noteLC - [facility] LBXR lumbar spine 6V w bending Reviewed date:02/23/2025 11:49:27 AM Interpretation: Performing Lab: Notes/Report: Source Facility: [facility] [place] [address] [place] [address] XRay Report Signed Patient: JAIR GROSS MR#: [id number] : 1940 Acct:[id number] Age/Sex: 84 / M ADM Date: 02/23/25 Loc: RAD Attending Dr: Antonio Roque NP Ordering Physician: Antonio Roque NP Date of Service: 02/23/25 Procedure(s): XR lumbar spine 6V w bending Accession Number(s): [id number] cc: Antonio Roque NP; Leonardo Armstrong M.D. The [place] [address] Patient Name: JAIR GROSS MRN: [facility]:[id number] date: 1940 Sex: M Assigned Patient Location: [facility] Current Patient Location: [facility] Accession/Order Number: [id number] Exam Date: 02/23/2025 08:57 Report Date: 02/23/2025 09:41 At the request of: ANTONIO ROQUE NP Procedure: XR lumbar spine 6V w bending LUMBAR SPINE THE FLEXION-EXTENSION VIEWS- 6 views: CLINICAL HISTORY: Low Sacral Pain, Sacroiliitis COMPARISON: CT 02/02/2025 and plain films 07/19/2019 AP, lateral (neutral, flexion and extension) and both oblique views were obtained. His osteopenia. There is no evidence of fracture. There is continued mild retrolisthesis of L1 on L2 and L2 on L3. There is also slight anterolisthesis of L5 with respect to adjacent vertebra. There is disc space narrowing at L1-2 and L 2-3 . Endplate spurring is present, greater proximally. There is facet disease, greater distally. No obvious pars defect is seen. The sacroiliac joints are maintained and show mild sclerosis. Mild atherosclerotic disease is noted. XR/XR lumbar spine 6V w bending IMPRESSION: DEGENERATIVE CHANGES, DESCRIBED. Impression dictated by: Lorene Valdez M.D. 02/23/2025 9:41 AM Dictation Location: [place] [address] Electronically authenticated by: [id number] Y Date: 02/23/2025 09:41 Dictated By: Lorene Valdez M.D. Signed By: 02/23/2544 DD/ 0 TD/TT: Railway Station Manager:RUBA Little Reviewed date:03/07/2025 12:44:00 PM Interpretation: Performing Lab: Notes/Report: [facility] T32.872.18-3.98 pg/mLPerforming Lab:see note - [facility] LB T4 Reviewed date:03/07/2025 12:44:00 PM Interpretation: Performing Lab: Notes/Report: [facility] ,T4 Thyroxine6.004.50-12.10 ug/dLPerforming Lab:see note - [facility] LBTSH Reviewed date:03/07/2025 12:44:00 PM Interpretation: Performing Lab: Notes/Report: [facility] ,Thyroid Stimulating Hormone1.7030.358-3.740 uIU/mLPerforming Lab:see note - [facility] LBVITAMIN D 25 [place] Reviewed date:02/07/2025 12:40:42 PM Interpretation: Performing Lab: Notes/Report: [facility] ,Vitamin D46.7 <20 ng/mL Vit D deficient 20-<30 ng/mL Vit D insufficient 30-100 ng/mL Vit D sufficient >100 ng/mL Potential Toxicity Performing Lab:see note - [facility] LBCT abdomen pelvis w con Reviewed date:02/02/2025 04:59:14 PM Interpretation: Performing Lab: Notes/Report: Source Facility: [place] [address] CT Scan Report Signed Patient: JAIR GROSS MR#: [id number] : 1940 Acct:[id number] Age/Sex: 84 / M ADM Date: 02/02/25 Loc: LAB Attending Dr: Leonardo Armstrong M.D. Ordering Physician: Leonardo Armstrong M.D. Date of Service: 02/02/25 Procedure(s): CT abdomen pelvis w con Accession Number(s): [id number] cc: Leonardo Armstrong M.D. [place] [address] Patient Name: JAIR GROSS MRN: [id number] date: 1940 Sex: M Assigned Patient Location: LAB Current Patient Location: LAB Accession/Order Number: [id number] Exam Date: 02/02/2025 08:45 Report Date: 02/02/2025 09:42 At the request of: LEONARDO ARMSTRONG MD Procedure: CT abdomen pelvis w con CT ABDOMEN AND PELVIS WITH CONTRAST COMPARISON: 03/30/2020 CLINICAL DATA: Right upper quadrant pain for couple of years. Spiral images were obtained through the abdomen and pelvis following oral and 100 mL of Omnipaque 300. This CT exam was performed using one or more following dose reduction techniques: Automated exposure control, adjustment of the mA and/or kV according to patient size, or use of iterative reconstruction technique. Limited cuts through the lung bases show atelectasis and/or scarring. There are small noncalcified nodular densities bilaterally measuring up to 5 mm. There were also some nodules present at the time of the comparison. The gallbladder is surgically absent. No common duct stones are noted. No intrahepatic masses are seen. The spleen, pancreas and adrenal glands show no acute findings. There are symmetric renal nephrograms, without hydronephrosis. There is atherosclerotic plaque involving the aorta, iliac and some of the visceral arteries. No enlarged lymph nodes or ascites are seen. There is a tiny umbilical hernia containing fat. No dilated small bowel loops are noted. There are tubular filling defects with diameter up to 5 to 6 mm within the stomach and small bowel loops on the left. This may be food debris though clinical correlation is suggested to exclude any possibility of foreign bodies or parasites. There is mild stool along the colon. There are also scattered colonic diverticula. Degenerative changes are present at the spine and SI joints. Images through the pelvis show no dilated small bowel. No appendiceal inflammation is seen. There is mild distal colonic stool. Additional descending and sigmoid diverticula are visualized. There is no associated active inflammation. There is a penile prosthesis with reservoir deep to the lower rectus muscle on the right. The prostate is surgically absent. The urinary bladder wall appears slightly thickened though this may relate to incomplete distention. There is no ascites. CT/CT abdomen pelvis w con IMPRESSION: TINY PULMONARY NODULES AT BOTH LUNG BASES. NODULARITY WAS ALSO PRESENT PREVIOUSLY. NO BOWEL OR URINARY TRACT OBSTRUCTION. CLINICAL CORRELATION IS RECOMMENDED FOR TUBULAR FILLING DEFECTS WITHIN THE STOMACH AND LEFT UPPER QUADRANT SMALL BOWEL, DISCUSSED ABOVE. DIVERTICULOSIS. SLIGHT URINARY BLADDER WALL THICKENING. THIS MAY RELATE TO INCOMPLETE DISTENTION THOUGH CORRELATION IS RECOMMENDED TO EXCLUDE CYSTITIS. NO OTHER ACUTE FINDINGS. Impression dictated by: Lorene Valdez M.D. 02/02/2025 9:42 AM Dictation Location: [place] [address] Electronically authenticated by: [id number] Y Date: 02/02/2025 09:42 Dictated By: Lorene Valdez M.D. Signed By: 02/02/25943 DD/ 1 TD/TT: Railway Station Manager: Reason For Referral Reason Patient would like [facility] appointment if possible. Diagnosis [address] of the a bdomen (R93.5) Referral Organization [facility] Referring Provider First Name Haris Referring Provider Last Name Yahir Referring Provider [facility] latanya Referred Provider Yash Maria Referred Provider Specialty General Surg popeye Referral Priority Routine Diagnosis [address] of the a bdomen (R93.5) Referral Organization [facility] Referring Provider First Name Haris Referring Provider Last Name Yahir Referring Provider [facility] latanya Referred Provider [facility], Gastroenterolog y Referred Provider Specialty Gastroentero logy Referral Priority Routine Medications Medication SIG (Take, Route, Frequency, Duration) Notes Start Date End Date Status Albuterol Sulfate (2.5 MG/3ML) 0.083% 3 mL Inhal ation every 6 hrs-PRN 5ActiveLoperamide HCl 2 MG1 capsule as needed Orally Four times a day ActiveLatanoprost 0.005 %1 drop into affected eye in the evening Ophthalmic Once a dayActiveAspirin 81 MG1 tablet Orally Once a day; Duration: 30 day(s)Active Multivitamin Adult -1 tablet Orally Once a day; Duration: 30 day(s)Active amLODIPine Besylate 5 MG1 tablet Orally Once a day; Duration: 30 day(s)Active metFORMIN HCl ER 500 MG1 tablet Orally Once a day; Duration: 30 daysActive Vletllmnvj-IYJU-Wrqdlsji 50-325-40 MG1 capsule as needed Orally every 4 hrs ActiveOmeprazole 40 MG1 capsule 30 minutes before morning meal Orally Once a day; Duration: 30 day(s)ActiveTest Strips -use 1 strip dx: E11.9 once daily; Duration: 5ActiveDorzolamide HCl 2 %1 drop into affected eye Ophthalmic Three times a dayActiveSotalol HCl 80 MG0.5 tablet Orally every 12 hrs; Duration: 30 daysActiveCrestor 10 MG1 tablet Orally Once a day; Duration: 30 day(s)ActivePlavix 75 MG1 tablet Orally Once a day; Duration: 30 day(s)Active Furosemide 20 MG1 tablet Orally Once a day; Duration: 30 day(s)ActiveZonisamide 25 MG1 capsule Orally twice a day5ActiveFluticasone Propionate 50 MCG/ACT1 spray in each nostril Nasally Once a day; Duration: 30 day(s)Active Tylenol PM Extra Strength 500-25 MG1 tablet at bedtime as needed Orally Once a day; Duration: 30 day(s)ActiveIsosorbide Mononitrate ER 30 MG1 tablet in the morning Orally Once a day; Duration: 30 day(s)ActiveIrbesartan 300 MG1 tablet Orally Once a day; Duration: 30 day(s)Active Immunizations Vaccine Route Administration Date Status Comme nts Abrysvo Unknown 04/21/2024 Administered Comirnaty Cervalis Syringe Pre-Filled 30 mcg/0.3 mCLplcaxg79/13/2023Administered Flu, Fluad (59024) 65 yrs + High Dose Seasonal (2312-0274)Voctldi7304/17/2024 AdministeredPneumococcal (Prevnar 13)Iyxenah6801/30/2014dministeredPneumococcal (Prevnar 20)Plnqupg3511/22/20232137FaagzzndnpxbIIBO-YBX-7 (COVID 19 Pfizer 30mcg/0.3mL)Syjmlbb84/21/7565GbktbtreksvrOBWO-AMG-2 (COVID 19 Pfizer 30mcg/0.3mL)Rbgjrgk11/11/4757PppqsokkcqdwFCXX-FQM-1 (COVID 19 Pfizer 30mcg/0.3mL)Ifpskhb00/21/8664EqfzoekxpvkxNYOU-EBO-5 (COVID 19 Pfizer 30mcg/0.3mL), grady dzipkepVaaeoaq64/12/2022AdministeredZOSTER (SHINGLES) VACCINE (HZV)Gzjeoti6811/22/2023dministeredZOSTER (SHINGLES) VACCINE (HZV)Unknown 02/09/2024dministered Social History Tobacco Use: Social History Observation Description Date Details (start date - stop date) Former Smoker NA - NA Tobacco Use/Smoking Question Answer Notes Patient is a former smoker How long has it been since you last smoked?> 10 yearsAUDIT-C (Standard) Question Answer Notes Did you have a drink containing alcohol in the p ast year? No Dtysgi1SwnvbmkqxacpsoRczzwvebXeqwjaf Notes: Quit 35 years ago Quit 35 years ago Quit 35 years ago Quit 35 years ago Quit 35 years ago Quit 35 years ago Problems Problem Type SNOMED Code ICD Code Onset Dates Problem Status W/U Status Risk Notes Problem Essential hypertension (93445744 ) Essential (primary) hypertension (I10) ActiveconfirmedProblemObstructive sleep apnea syndrome (disorder) (21744295) Obstructive sleep apnea (adult) (pediatric) (G47.33)ActiveconfirmedProblem Gastro-esophageal reflux disease without esophagitis (374564993)Gastro- esophageal reflux disease without esophagitis (K21.9)ActiveconfirmedProblem History of malignant neoplasm of prostate (604771008)Personal history of malignant neoplasm of prostate (Z85.46)ActiveconfirmedProblemImpacted cerumen (51319083)Impacted cerumen, right ear (H61.21)ActiveconfirmedProblemVitamin D deficiency (22937449)Vitamin D deficiency, unspecified (E55.9)Activeconfirmed ProblemOverweight (469924520)Overweight (E66.3)ActiveconfirmedProblemChronic migraine without aura, non-intractable (083370316490270)Chronic migraine without aura, not intractable, without status migrainosus (G43.709)Activeconfirmed ProblemPeripheral venous insufficiency (99510332)Venous insufficiency (chronic) (peripheral) (I87.2)ActiveconfirmedProblemLumbosacral spondylosis without myelopathy (93672385)Spondylosis without myelopathy or radiculopathy, lumbar region (M47.816)ActiveconfirmedProblemPeroneal tendinitis (37869481)Peroneal tendinitis, right leg (M76.71)ActiveconfirmedProblemPain in right foot (388753424269471)Pain in right foot (M79.671)ActiveconfirmedProblemPain in limb (19885073)Pain in right toe(s) (M79.674)ActiveconfirmedProblemPain in limb (51056871)Pain in left toe(s) (M79.675)ActiveconfirmedProblemLaceration without foreign body of right middle finger without damage to nail, initial encounter (S61.212A)ActiveconfirmedProblemSprain of deltoid ligament of right ankle, sequela (S93.421S)ActiveconfirmedProblemAdult health examination (280734986) Encounter for general adult medical examination without abnormal findings (Z00.00)ActiveconfirmedProblemLong-term current use of drug therapy (214674753) Other superintendent container terminal (current) drug therapy (Z79.899)ActiveconfirmedProblemCardiac pacemaker in situ (154735441)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)Active confirmedProblemCoronary arteriosclerosis (disorder) (12589542)CAD in [place] artery (I25.10)ActiveconfirmedProblemDyslipidemia (549613440)Dyslipidemia (E78.5)ActiveconfirmedProblemHypothyroidism (47598400)Hypothyroidism (E03.9) ActiveconfirmedProblemAnemia (999342911)Anemia (D64.9)ActiveconfirmedProblem Plantar fascial fibromatosis (37689371)Plantar fasciitis, right (M72.2)Active confirmedProblemLeaking of urine (357451955)Leaking of urine (R32)Active confirmedProblemInsomnia (029978938)Insomnia, unspecified type (G47.00)Active confirmedProblemOsteoarthritis (641655318)Other type of osteoarthritis, unspecified site (M19.90)ActiveconfirmedProblemInstability of joint of right ankle (8299028374252593)Instability of right ankle joint (M25.371)Active confirmedProblemAllergic rhinitis caused by pollen (15184410)Seasonal allergic rhinitis due to pollen (J30.1)ActiveconfirmedProblemHyperglycemia due to type 2 diabetes mellitus (480295210452041)Controlled type 2 diabetes mellitus with hyperglycemia, without long-term current use of insulin (E11.65)Activeconfirmed ProblemBilateral carpal tunnel syndrome (25443975919633110)Bilateral carpal tunnel syndrome (G56.03)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 (880582165)Controlled type 2 diabetes mellitus with diabetic polyneuropathy, without 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)Activeconfirmed ProblemGlaucoma (25908713)Glaucoma of both eyes, unspecified glaucoma type (H40.9)ActiveconfirmedProblemObesity (368690142)Obesity, unspecified classification, unspecified obesity type, unspecified whether serious comorbidi ty present (E66.9)ActiveconfirmedProblemAt low risk for fall (538115205)At low risk for fall (Z91.81)ActiveconfirmedProblemDepression Screening (039928955) Encounter for screening for depression (Z13.31)ActiveconfirmedProblemTibialis tendinitis (51216638)Posterior tibial tendon dysfunction (PTTD) of right lower extremity (M76.821)Activeconfirmed Vital Signs Heart Rate 72 /min 05/01/2024 Okxmjkrvniy69 degrees Jqsbjpabza90/16/2024lood pressure jnrbqjsja94 mm Hg 01/30/20253817Xllfnpoy50 %05/01/20244162Wlzdee12 in01/30/2025lood pressure lthhmkuq860 mm Hg01/30/20251505Cnldet547.0 lbs01/30/2025BMI25.5 kg/m201/30/2025 Encounters Encounter Location Date Provider Diagnosis [facility] [address] [place] [address] 01/30/2025 Haris Jaray [facility] [place] [address] 02/02/2025Doug HoyAbnormal [address] of the abdomen R93.5[facility] [place] [address]/Doug HoyAbnormal [address] of the abdomen R93.5B[facility] [place] [address]/Doug HoyAnemia D64.9 and Hypothyroidism E03.9 [facility] [place] [address] 02/08/2025Doug [facility] [place] [facility] [place] [address]/Doug [facility] [place] [facility] [place] [address]/Doug [facility] [place] [facility] [address]/Doug [facility] (PODIATRY)[address] [place] [address] [place] [address]/ Susana CullenControlled type 2 diabetes mellitus with diabetic polyneuropathy, without long-term current use of insulin E11.42[facility] [address] [place] [facility] [place] [address]/Doug HoyControlled type 2 diabetes mellitus with diabetic polyneuropathy, without long-term current use of insulin E11.42 ; Essential (primary) hypertension I10 ; Dyslipidemia E78.5 ; Gastro-esophageal reflux disease without esophagitis K21.9 ; Vitamin D deficiency, unspecified E55.9 and Right upper quadrant abdominal pain R10.11 Assessments Encounter Date Diagnosis (ICD Code) Assessment Notes Treatment Notes Treatment Clinical Notes Section Notes 05/01/2024 Controlled type 2 di abetes mellitus with diabetic polyneuropathy, without long-term current use of insulin (ICD-10 - E11.42) 01/30/2025ontrolled type 2 diabetes mellitus with diabetic polyneuropathy, without long-term current use of insulin (ICD-10 - E11.42)01/30/2025Essential (primary) hypertension (ICD-10 - I10)02/02/2025bnormal CT of the abdomen (ICD- 10 - R93.5)02/06/2025bnormal CT of the abdomen (ICD-10 - R93.5)02/07/2025nemia (ICD-10 - D64.9)02/07/2025Hypothyroidism (ICD-10 - E03.9)01/30/2025Dyslipidemia (ICD-10 - E78.5)01/30/2025Gastro-esophageal reflux disease without esophagitis (ICD-10 - K21.9)01/30/2025Vitamin D deficiency, unspecified (ICD-10 - E55.9) 01/30/2025Right upper quadrant abdominal pain (ICD-10 - R10.11) Plan Of Treatment Pending Test Test Name Order Date HEMOGLOBIN A1C (GLYCO) 01/30/2025 LIPID PANEL (CHOL/TRIG/HDL/LDL) 01/31/20 25 PSA-FREE AND TOTAL 01/30/2025 VITAMIN D 25 [place] 01/30/2025 CT ABD and PELV W CON 01/30/2025 THYROID PANEL (T4/TSH/FREE T3) THYROID PANEL (T4/TSH/FREE T3) PSA, SCREENING 01/30/2025 CMP (COMP MET PADRON) w/eGFR CKD-EPI 2024 CBC WITH DIFF 01/30/2025 Next Appt Details Provider Name:Haris Adrian Jarashi, 10:30:00 AM, [address] [place], [address], Insurance Providers Payer Name Payer Address Payer Phone Subscriber Number Group Number Insured Name Patient Relationship to Insured Coverage Start Date Coverage End Date [employer] [address] [address] [place] [address] [id number] Jair Gross Self - patient is the insured 4 [place] [id number] Bird Grosslf - patient is the insured Medical (General) History Medical History History ICD Code Seasonal allergic rhinitis due to pollen J30.1 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.2 Instability of right ankle joint M25.371 Sprain of deltoid ligament of right ankl e, sequela S93.421S Posterior tibial tendon dysfunction, rig ht M76.821 Pain in right foot M79.671 Controlled type 2 diabetes m alissaitus with diabetic polyneuropathy, without long-term current use [...] radicu lopathy, lumbar region M47.816 CAD in [place] artery I25.10 Encounter for screening for depression Z 13.31 Venous insufficiency (chronic) (peripher al) I87.2 Personal history of malignant neoplasm o f prostate Z85.46 Other jail (current) drug therapy Z 79.899 Impacted cerumen, [...] lisy type H40.9 Surgical History Surgery Date(Month/Year) Prostatectomy PacemakerCholecystectomyCataractVasectomyTonsillectomyBilateral Hernia Repair 2009[facility] [id number] Pacemaker [id number] Selective Coronary PTCA with Synergy Drug-eluting Stent Placement in the 1st and 2nd Obtuse Marginal Branches of the LT Circumflex Coronary Artery, Failed MynxGrip Closure Device Dr Arellano08/30/2019
--- OUTSIDE RECORDS SUMMARY | 2025-03-22 13:17 | XMS_ITS | CCD ---
Author Organization [facility] Care Team Providers Care Parts Person Name Role Phone ELTAHAWY, EHAB A Admitting [...] Provider MD Mg London Primary Care Provider [phone] MD Erwin Salazar Attending Provider [phone] Erwin Salazar Unavailable MARCE Hardy Attending Provider KAT Westfall Other Provider Demetrius Cooper Primary Care Physician [phone] Griselda Pennington Unavailable ALANNA HARDY Admitting Unavailable ALANNA HARDY Attending Unavailable LITA, DR MG Omalley Primary Care Unavailable [place], DR ERWIN Bell Consulting Unavailable ALANNA HARDY [...] NADERER, DR MG Omalley Primary Care Unavailable [place], DR ERWIN Bell Consulting Unavailable ELTAHAWY, DR [...] Gisele Unavailable MD Erwin Salazar Attending Provider [phone] MD Demetrius Cooper Primary Care Provider MD Inez Henderson Attending Provider Esme Brunson NP Gisele Attending Provider FABIO Ruby Attending Provider Flori GARZA, Anjali Unavailable [phone] MD Demetrius Cooper Primary Care Provider DAISHA Brunson Gisele Attending Provider Clarissa Corado MD Unavailable Demetrius Cooper MD Primary Care Provider Flori GARZA, [facility] A. Unavailable [phone] MD Demetrius Cooper Primary Care Provider MD Luc Ham Jr Attending Provider UnaLuc French MD Unavailable Demetrius Cooper MD Primary Care Provider [phone] LUC HAM Referring Unavaila ble DEMETRIUS COOPER Primary Care Unavailable VAISHALI PRINGLE Attending Unavailable Unavailable Primary Care Provider UnavailDemetrius Davila MD Primary Care Provider Demetrius Cooper MD Primary Care Provider [phone] Ramin CASON, Talib Faustin Attending Provider Mary Schneider MD Referring Provider Demetrius Cooper MD Primary Care Provider Mary Schneider MD Referring Provider [phone] Dennis Gray MD Attending Provider Matteo Melo [...] Wild Attending Unavailable Debora Wild Admitting Unavailable Allison Demetrius E Primary Care Unavailable Debora Wild [...] Provider Talib Faustin MD Attending Provider [phone] Dennis Gray MD Attending Provider Pepito Galicia [...] Demetrius Cooper MD Primary Care Provider [phone] Mary Schneider MD Referring Provider Ramin CASON, Talib Faustin Attending Provider Maru Hayes MD Emergency Provider Clarissa Corado MD Unavailable Unavailable Demetrius Cooper MD Primary Care Provider Matteo Melo MD Attending Provider Mary Schneider MD Referring Provider Ramin CASON, Talib Faustin Attending Provider MD Demetrius Cooper Attending Unavailable MD Demetrius Cooper Attending Unavailable MD Demetrius Cooper Attending Unavailable MD Demetrius Cooper Attending Unavailable Demetrius Cooper MD Primary Care Provider Marilia Crouch APRN Attending Provider Boy ASHTON, Gisele Attending Provider Debora Wild APRN Attending Provider Veena Adkins DO Attending Provider Ramin CASON, Talib Faustin Attending Provider Mary Schneider MD Referring Provider Dennis Gray MD Attending Provider Inez Henderson Attending Unavaila ble Demetrius Cooper Attending Unavailable Demetrius Cooper Attending Unavailable Demetrius Cooper Attending Unavailable Demetrius Cooper Attending Unavailable Demetrius Cooper Attending Unavailable Demetrius Cooper Admitting Unavailable Demetrius Cooper Attending Unavailable Demetrius Cooper MD Primary Care Provider Debora Wild APRN Attending Provider Debora Wild APRN Other Provider Marilia Crouch APRN Attending Provider Mary Schneider MD Referring Provider MARY SCHNEIDER Attending Unavailable SCHNEIDERMARY MELVIN Referring Unavailable [facility] Primary Care Unavailable SCHNEIDER MARY N Admitting Unavailable SCHNEIDER MARY N Attending Unavailable ROSS, DEMETRIUS JACKELYN Primary Care Unavailable SCHNEIDERLEIGHN N Admitting Unavailable SCHNEIDERMARY Attending Unavailable [facility] Primary Care Unavailable SCHNEIDER MARY N Referring Unavailable [facility] Primary Care Unavailable SCHNEIDERMARY Attending Unavailable [facility] Primary Care Unavailable SCHNEIDERLEIGHN Qasim Referring Unavailable [facility] Primary Care Unavailable SCHNEIDERMARY MELVIN Attending Unavailable [facility] Primary Care Unavailable SCHNEIDERMARY MELVIN Attending Unavailable [facility] Primary Care Unavailable Clarissa Corado MD Unavailable MATTEO AMBROSE Attending Unavailable DENNIS GRAY Referring Unavailable ISABEL ROMANO Attending Unavailable MATTEO AMBROSE Attending Unavailable ITZKOWITZ, EVENA H Attending Unavailable MISSY WESTFALL Attending Unavailable ITZKODINESH, VEENA H Attending Unavailable TIMMIS, LUC H Attending Unavailable ALLISON DEMETRIUS E Referring Unavailable TIMMIS, LUC H Referring Unavailable MISSY WESTFALL Attending Unavailable TIMMIS, LUC H Attending Unavailable TIMMIS, LUC H Attending Unavailable TIMMIS, LUC H Attending Unavailable ITZKOWITZ, VEENA H Attending Unavailable GELACIO PAREDES Referring Unava ilable VEENA ADKINS H Attending Unavailable STACEY PATEL Referring Unavailable STACEY PATEL Attending Unavailable STACEY PATEL Referring Unavailable BOY BUITRAGO Attending Unavailable STACEY PATEL Referring Unavailable STACEY PATEL Referring Unavailable STACEY PATEL Attending Unavailable STACEY PATEL Admitting Unavailable CORIN SCHMIDT Referring Unavailable STACEY PATEL Referring Unavailable STACEY PATEL Attending Unavailable STACEY PATEL Referring Unavailable Demetrius Cooper MD Primary Care Provider Mary Schneider MD Referring Provider Talib Faustin MD Attending Provider [phone] Matteo Melo Attending Unavailable Matteo Melo Admitting [...] Unavailable Ross, Demetrius E Primary Care Unavailable Allison, Demetrius E Primary Care Unavailable Talib Faustin Attending Unavailabl e Ramin, Delvisd Yaser Admitting Unavailabl e Mary Schneider Referring Unavailable Allison, Demetrius E Primary Care Unavailable Maru Ma Attending Unavailable Maru Ma Admitting Unavailable Pepito Galicia Attending Unavailable Pepito Galicia Admitting Unavailable Ross, Demetrius E Primary Care Unavailable Ross, Demetrius E Primary Care Unavailable Debora Wild Admitting Unavailable Debora Wild Attending Unavailable Ross, Demetrius E Primary Care Unavailable Debora Wild Admitting Unavailable Debora Wild Attending Unavailable Veena Adkins Attending Unavailable Veena Adkins Admitting Unavailable Ross, Demetrius E Primary Care Unavailable Mary Schneider MD Referring Provider [phone] Talib Faustin MD Attending Provider [phone] Chang Russell MD Attending Provider Demetrius Cooper MD Primary Care Provider Demetrius Cooper. Attending Unavailable Talib Faustin Yaser Admitting Unavailabl e Talib Faustin Attending Unavailabl e Demetrius Cooper E. Admitting Unavailable Allison Demetrius E. Attending Unavailable Demetrius Cooper Admitting Unavailable Yajaira Roque Attending Unavailable Demetrius Cooper Attending Unavailable Unavailable Unavailable Unavailable Allergies Allergy ClassificationReported Allergen(s)Allergy TypeDate of OnsetReaction(s) Facility (3 sources)DesonideDrug Uhvrzdh77-83-1936[facility] (1 source)NiacinDrug Icbvkgk72-56-2857[facility] (20 sources)Adhesive agent; Translations: [adhesive]Drug tvvjpza20-56-7020tyysUniversity [facility]als [facility] (20 sources)Niacin; Translations: [niacin]Drug Ilgcuhc35-67-7781erhio, Itching (finding), Itching, UnknownGeneral [facility] (20 sources)Adhesive bandage; Translations: [Adhesive Bandage]Allergy to substanceEruption of skin (disorder)[facility] (5 sources)NiacinDrug AllergyhivesNort [place] Other (2 sources)Niaspan Starter PackDrug allergy (disorder)60-00-9011[facility] Repository (15 sources)Adhesive Tape-Silicones; Translations: [ADHESIVE TAPE-SILICONES]Drug Fcxifou26-31-4908[facility] (20 sources)NiacinDrug Bdgtbvz88-99-8653SjghbetMercer County Community Hospital (20 sources)Wound Dressing AdhesiveDrug Aqgsywt26-85-7810UftfiiaFNVK Healthcare (4 sources)Niacin; Translations: [Niaspan ER]Drug AllergyPaulding County Hospital Repository (2 sources)NiacinDrug Fafmuyr80-36-5164PdxlukbzdLake[facility] Repository Medications Current Medications MedicationDrug Class(es)DatesSig (Normalized)Sig (Original)acetaminophen 325 mg / butalbital 50 mg / caffeine 40 mg oral capsule (20 sources)Barbiturate, Central Nervous System Stimulant, MethylxanthineStart: 68-71-5680vyuk 1 capsule by mouth every four hours for headacheEsgic 325 mg-50 mg-40 mg oral capsule 1 cap(s), Oral, q4hr for headache, 60 cap(s), Refill(s) [facility]Latex, [id number], 160, cm, 11/29/23 10:29:00 EDT, Height/Length Dosing, 78.5, kg, 11/29/23 10:29:00 EDT, Weight Dosing Start Date: 11/29/23 Status: Ordered Quantity: 60.0 Unit: cap(s) Repeat number: 2Start: 12-15-2022 End: 06-91-8566kcqa 1 tablet by mouth every four hours as needed tuinnkjevn-axvgjzuyedbwv-sqgi 50-325-40 mg tablet Take 1 tablet by mouth every 4 hours if needed. 12/15/2022 ActiveStart: 66-56-8857ECHB/butalbital/caffeine 325 mg-50 mg-40 mg Tab Refill(s) 0, Headache Start Date: 12/15/22 Status: Ordered Comment on above:Take 1 tablet by mouth every 4 hours as needed.Albuterol (Eqv- ProAir HFA) 90 mcg/inh inhalation aerosol (16 sources)Start: 30-24-9838Wiczxrbvv (Eqv-ProAir HFA) 90 mcg/inh inhalation aerosol See Instructions, 17 gm, Refill(s) 6, USE 2 INHALATIONS BY MOUTH EVERY 6 HOURS, [facility] ([facility]), 163, cm, 11/04/22 15:03:00 EDT, Height/Length Dosing, 76, kg, 11/04/22 15:03:00 EDT, Weight Dosing Start Date: 11/09/22Status: Ordered Quantity: 17.0 Unit: g Repeat number: 1Start: 84-34-0572Krfthnawp (Eqv-ProAir HFA) 90 mcg/inh inhalation aerosol See Instructions, 17 gm, Refill(s) 6, USE 2 INHALATIONS BY MOUTH EVERY 6 HOURS, [facility] ([facility]), 163, cm, 11/04/22 15:03:00 EDT, Height/Length Dosing, 76, kg, 11/04/22 15:03:00 EDT, Weight Dosing Start Date: 11/09/22Status: Ordered{1 (Ascorbic Acid 7540 MG / POLYETHYLENE GLYCOL 3350 00377 MG / Potassium Chloride 1200 MG / SodiumAscorbate 31285 MG / Sodium Chloride 3200 MG Powder for Oral Solution) / 1 (POLYETHYLENE GLYCOL 3350 254059 MG / Potassium Chloride 1000 MG / Sodium Chlori (5 sources)Osmotic Laxative, Vitamin CStart: 81-44-8135Jhupbo oral powder for reconstitution See Instructions, 1 EA, Refill(s) 0, Prior to colonoscopy., [id number], 163, cm, 12/15/22 12:03:00 EDT, Height/Length Dosing, 73.3, kg, 12/16/2311:03:00 EDT, Weight Dosing Start Date: 12/15/22 Status: Ordered Aspir 81 (18 sources)Start: 10-95-9181fmra 81 mg by mouth once dailyAspir 81 81 mg, Oral, Daily, Refills(s) 0, Prophylaxis Start Date: 04/24/20 Status: Ordered Repeat nu mber: 1Start: 82-85-8032kgzp 81 mg by mouth once dailyAspir 81 81 mg, Oral, Daily, Refills(s) 0, Prophylaxis Start Date: 04/24/20 Status: OrderedStart: 66-27-2969qfxl 1 mg by mouth once dailyAspir 81 mg, Oral, Daily, Refills(s) 0, Prophylaxis Start Date: 04/24/20 Status: OrderedAspir-81 (5 sources)Aspir-81 Activeazithromycin 250 mg oral tablet (4 sources)Macrolide AntimicrobialStart: 65-79-0851Davmxftdqxta 250 MG 2 tablet on the first day, then 1 tablet daily for 4 days Orally Once a day for5 day(s) September, ActiveButalbital-Acetaminophen (5 sources)Butalbital-Acetaminophen Activecephalexin 250 mg oral capsule (1 source)Cephalosporin AntibacterialStart: 65-51-3991xtft 1 capsule by mouth twice dailyKeflex 250 mg Cap 250 mg = 1 cap(s), Oral, BID, Start 3 days before procedure, # 10 cap(s), Refills(s) 0, Pharmacy: [facility][id number], 167, cm, 04/27/22 8:46:00 EST, Height/Length Dosing, 87.1, kg, 04/27/22 8:46:00 EST, Weight Dosing Start Date: 04/27/22 Status: Orderedcholestyramine 4 g/5 g Oral Pwdr (1 source)Start: 51-38-4102dlxpvtldncswfe 4 g/5 g Oral Pwdr 1 packet(s), Oral, TID, 90 EA, Refill(s) 0, [facility] ([facility] ), 167.6, cm, 08/24/22 8:10:00 EDT, Height/Length Dosing, 83.4, kg, 08/24/22 8:10:00 EDT, Weight Dosing Start Date: 08/24/22 Status: Orderedsugar-free cholestyramine resin 4000 mg powder for oral suspension (7 sources)Bile Acid SequestrantStart: 76-29-2232hefrxfkpfhhgcp 4 g/5 g Oral Pwdr 5 gram, 1 EA, Oral, BID, 630 gm, Refill(s) 0, one scoop BID 90 daysupply, 2 Minutes [facility]ORE #[id number], 162, cm, 08/30/23 10:00:00 EDT, Height/Length Dosing, 78.4, kg, 08/30/23 10:00:00 EDT, Weight Dosing Start Date: 09/06/23 Status: OrderedStart: 05-25-2023 End: 21-27-3829unta 4 g by mouth once dailyQuestran 4 g/9 g oral powder 4 gm, Oral, Daily, X 90 day(s), # 90 packet(s), Refills(s) 0, Pharmacy: [facility] #[id number], 163, cm, 05/25/23 12:33:00 EST, Height/Length Dosing, 79.8, kg, 05/25/23 12:33:00 EST, Weight Dosing Start Date: 05/25/23 Stop Date: 08/23/23 Status: OrderedDicyclomine (3 sources)AnticholinergicDicyclomine HCl Dmgyma16 hr fentaNYL 0.012 mg/hr transdermal system (20 sources)Opioid AgonistStart: 56-84-8707cdmmmFDJ 12 mcg/hr Transderm ER Film 1 patch(es), Topical, q72hr, Refill(s) 0 Start Date: 08/22/24 Status: Ordered Repeat number: 1Start: 08-02-2024 End: 57-66-2004Qvzvjxtz 12 mcg/hr patch 72 hour Discontinued 1 PATCH TRANSDERML Every 72 hours 5 15 0 August 16, 2024 September 11, 2024 10:11am 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, unspecified M alignant neoplasm of oropharynx, unspecifiedStart: 06-05-2024 End: 93-29-9846osdsstorcgi, Once PRN Procedure, Starting on 06/05/24 at 1345, For 1 dose, Intraprocedureferrous sulfate 325 mg oral tablet (2 sources)Start: 44-45-6381slry 1 tablet by mouth twice dailyFerrous Sulfate (Ferosul) 325 mg (65 mg iron) tablet Active 325 MG PO Twice daily February 222:00am Complies with drug therapyFish Oils (7 sources)Start: 77-55-9944Jmnbo-3 Fish Oil Oral, Daily, Refills(s) 0, Prophylaxis Start Date: 11/04/22 Status: OrderedStart: 94-91-0244Nilye-3 Fish Oil Oral, Daily, Refills(s) 0 Start Date: 11/04/22 Status: Orderedfluticasone 0.05 mg/inh Nasal [place] (1 source)Start: 23-10-6764nqvplcgfyqv 0.05 mg/inh Nasal [place] Daily, Refill(s) 0 Start Date: 04/24/20 Status: Orderedfurosemide 20 mg oral tablet (20 sources)Loop DiureticStart: 04-24-2020 End: 14-20-9629nxjg 1 tablet by mouth once dailyfurosemide (Lasix) 20 MG tablet Indications: Peripheral venous insufficiency TAKE 1 TABLET BY MOUTHDAILY 100 tablet 2 02/18/2024 ActiveFurosemide ActiveComment on above:Take 20 mg by mouth. gabapentin 600 mg oral tablet (20 sources)Anti-epileptic AgentStart: 24-98-3182eweb 1 tablet by mouth three times dailygabapentin 600 mg Tab 600 mg, Oral, TID, # 270 EA, Refills(s) 0, Pharmacy: [facility], 163, cm, 02/25/23 13:29:00 EDT, Height/Length Dosing, 78.8, kg, 02/25/23 13:29:00 EDT, Weight Dosing Start Date: 03/09/23 Status: OrderedGabapentin 300 MG Oral for 90 ActiveComment on above:Take 1 tablet by mouth.glimepiride 2 mg oral tablet (6 sources)SulfonylureaStart: 48-08-3220dsrnulcmmlj (AMARYL) 2 mg tablet Take 2 mg by mouth. 01/19/2019 ActiveComment on above:Take 2 mg by mouth. Hc/Dph/Nystat/Lido/Fla Monsalve (1 source)Start: 10-75-3708hzqv 10 mL by mouth four times daily as needed Hc/Dph/Nystat/Lido/Fla Monsalve Hc/Dph/Nystat/Lido/Fla Monsalve, Swish and swallow with 10ml by mouth four times daily as needed FOR mucositis Start Date: 08/22/24 Status: Ordered Repeat number: 1iv contrast (will be provided with radiology test) (3 sources)Start: 62-75-9095rh contrast (will be provided with radiology test) [...] 2 mg oral tablet (20 sources)Opioid AgonistStart: 51-04-8315yxip 1 tablet by mouth every four hoursloperamide [...] ActivemethylPREDNISolone 4 mg oral tablet (4 sources)CorticosteroidStart: 21-95-6606Noxmgd 4 MG as directed Orally as directed for 6 days September, ActiveMisc Medication (6 sources)Start: 64-67-1275Volg Medication Transdermal Therapeutics up to four times per day: Meloxicam 0.5%/ Doxepin 3%/ Amantidine 3%/Dextromethorphan 2%/ Lidocaine 2% Start Date: 11/08/23 Status: Ordered Repeat number: 1Start: 06-96-7094Htxy Medication Transdermal Therapeutics up to four times [...] morning. ActiveMultivitamin (Multiple Vitamins) tablet (20 sources)Start: 11-20-4194ugzs 1 tablet by mouth once dailyMultivitamin (Multiple Vitamins) tablet Active 1 TAB PO Daily June 14, 2024 1:00am Complies with drug therapyStart: 01-50-6407qwgv 1 tablet by mouth once daily Start: 55-63-3666vple 1 tablet by mouth once dailyMultivitamin (Multiple Vitamins) tablet Active 1 TAB PO Daily June 14, 2024 1:00amStart: 90-57-3845exil 1 tablet by mouth once dailyMultivitamin (Multiple Vitamins) tablet Active 1 TAB PO Daily June 14, 2024 12:00amMultivitamin preparation (5 sources)Multivitamin Activemultivitamin tablet (7 sources)take 1 tablet by mouth once dailymultivitamin tablet Take 1 tablet by mouth once daily. ActiveMultivitamin, Therapeutic w/ Minerals (18 sources)Start: 20-92-6703Rgxinxfipsfv, Therapeutic w/ Minerals Oral, Daily, Refill(s) 0, Prophylaxis Start Date: 04/24/20 Status: Ordered Repeat number: 1 Start: 18-04-8729Kgnlcqrwidch, Therapeutic w/ Minerals Oral, Daily, Refill(s) 0, Prophylaxis Start Date: 04/24/20 Status: OrderedOmega 3 (5 sources)[place] 3 Activeomega-3 acid ethyl esters (long term) 1000 mg oral capsule (20 sources)take 1 capsule by mouth in the morningomega-3 acid ethyl esters (Lovaza) 1 g capsule Take 1 g by mouth in the morning and 1 g before bedtime. Activepantoprazole 20 mg delayed release oral tablet (7 sources)Proton Pump InhibitorStart: 53-71-3285orch 1 mg by mouth once daily Pantoprazole [address] Tab mg tab(s), Oral, Daily, Refills(s) 0 Start Date: 10/31/20 Status: OrderedPantoprazole Sodium Not-Taking/PRNPantoprazole Sodium Not-TakingPantoprazole Sodium Activepolyethylene glycol 3350 05317 mg powder for oral solution (9 sources)Osmotic LaxativeStart: 32-09-4848Kqbrzfvsolrf Glycol 3350 (Miralax) 17 gram/dose powder Active 17 GM PO Daily 68 4 0 September 20, 2024 12:00am Complies with drug therapyPotassium Chloride (11 sources)Start: 89-21-2365xxcn 1 tablet by mouth twice dailyPotassium Chloride (Fik-Vzfx-Mtp M20) 20 mEq oral tablet, extended release TAKE 1 TABLET BY MOUTH TWICE DAILY Start Date: 08/30/24 Status: Ordered Repeat number: 1Start: 08-23-2024 End: 38-37-6634Jdwliparh Chloride (Klor-Con M20) 20 mEq tablet,ER particles/crystals Discontinued 20 MEQ PO Twice daily August 23, 2024 12:00am October 03, 2024 10:25ampsyllium 400 mg oral capsule (20 sources)Start: 03-10-2023 End: 90-57-5202ngsx 3 capsules by mouth once dailypsyllium (Metamucil 3 in 1 Daily Fiber) 400 MG capsule Take 3 capsules by mouth Daily 03/10/2023 Active Start: 03-10-2023 End: 74-11-1228uyqf 3 capsules by mouth once dailypsyllium (Metamucil) 3.4 gram packet Take 3 capsules by mouth once daily. 03/10/2023 12/13/2024 Discontinued (Med List Cleanup)Start: 34-47-0182tdcp 3 capsules by mouth once dailypsyllium (Metamucil 3 in 1 Daily Fiber) 400 MG capsule Take 3 capsules by mouth Daily 03/10/2023 ActiveStart: 19-90-6602Ekubuopqp Refills(s) 0, Constipation Start Date: 03/10/23 Status: OrderedStart: 79-14-5057Svdjiffbi Refills(s) 0 Start Date: 03/10/23 Status: Orderedrimegepant 75 mg disintegrating oral tablet (20 sources)Start: 02-16-2024 End: 58-68-8584Qgyoyhkwhe Sulfate (Nurtec) 75 MG tablet dispersible Indications: Migraine without aura and withoutstatus migrainosus, not intractable 1 tab PO prn migraine. 16 tablet 2 02/16/2024 ActiveSenna Leaves (1 source)Start: 51-32-4572zcsm 1 tablet by mouth twice daily as needed for constipationSenna 8.6 mg oral tablet TAKE 1 TABLET BY MOUTH TWICE DAILY NEEDED FOR CONSTIPATION Start Date: 08/22/24 Status: Ordered Repeat number: 1 Sennosides (Black-Draught Lax-Senna) 8.6 mg tablet (8 sources)Start: 31-31-3311zpus 1 tablet by mouth once daily as needed for constipationSennosides (Black-Draught Lax-Senna) 8.6 mg tablet Active 8.6 MG PO Twice daily as needed for constipation 60 August 02, 2024 12:00am Use if no bowel movement dailysilver sulfADIAZINE 10 mg/ml topical cream (13 sources)Sulfonamide AntibacterialStart: 87-07-8146DJS 1% topical cream 1 lenin, Topical, BID, Refill(s) 0, apply to neck at affected areas Start Date: Status: Ordered Repeat number: 1Start: 08-18-2024 End: 84-34-1599Ejlvue Sulfadiazine (Silvadene) 1 % cream Discontinued 1 APPLIC TOPICAL Twice daily 50 0 August 12:00am October 03, 2024 10:25am Squamous cell carcinoma of oropharynx Malignant neoplasm of oropharynx, unspecified Apply to open areas on radiation site, twice a day, until healed.traZODone hydrochloride 50 mg oral tablet (1 source)Serotonin Reuptake InhibitorStart: 37-78-9210ncfr 1 mg by mouth once daily at [...] Central Nervous System Stimulant, MethylxanthineStart: 06-14-2024 End: 93-68-7250qxjg 1 tablet by mouth every four to six hours as needed Ygufziz-Ikzabdazvkpdf-Hituvxbm (Excedrin Migraine) 250-250-65 mg tablet Discontinued 1 TAB PO EVERY4-6 HOURS as needed July 20, 2024 1:00am July 26, 2024 8:40amacetaminophen 500 mg / diphenhydrAMINE hydrochloride 25 mg oral tablet (20 sources)Histamine-1 Receptor AntagonistStart: 06-14-2024 End: 81-72-6475gdys 2 tablets by mouth once daily at bedtime as needed Diphenhydramine-Acetaminophen (Tylenol Pm Extra Strength) 25-500 mg tablet Discontinued 2 TAB PO Daily at bedtime as needed July 20, 2024 1:00am July 26, 2024 8:40amStart: 39-67-3528pvcf 1 tablet by mouth once daily at [...] oral tablet (20 sources)Opioid AgonistStart: 07-20-2024 End: 64-28-5576jorc 1 tablet by mouth twice daily as neededHydrocodone- Acetaminophen 5-325 mg tablet Discontinued 1 TAB PO Twice daily as needed 0 July 20, 2024 1:00am July 26, 2024 8:41amStart: 07-17-2024 End: 11-04-1569jphs 1 tablet by mouth every twelve hours as needed for pain Hydrocodone-Acetaminophen 5-325 mg tablet Discontinued 1 TAB PO Every 12 hours as needed for pain 42 0 July 17, 2024 August 09, 2024 9:43am Other acute postprocedural pain Other acute postprocedural jikq674 actuat albuterol 0.09 mg/actuat dry powder inhaler (20 sources)beta2-Adrenergic AgonistStart: 06-14-2024 End: 68-27-7603Ysyxlzoqj Sulfate 90 mcg/actuation aerosol powdr breath activated Discontinued 1 INH INHALATION EVERY 4-6 HOURS as needed July 20, 2024 1:00am July 26, 2024 8:39amamLODIPine 5 mg oral tablet (20 sources)Dihydropyridine Calcium Channel BlockerStart: 04-24-2020 End: 57-52-6367hqvg 1 tablet by mouth once dailyAmlodipine 5 mg tablet Discontinued 5 MG PO Daily July 20, 2024 1:00am July 26, 2024 8:39amComment on above:Take 5 mg by mouth.aspirin 81 mg chewable tablet (20 sources)Platelet Aggregation Inhibitor, Nonsteroidal Anti-inflammatory Drug Start: 06-14-2024 End: 82-09-8670ubje 1 tablet by mouth once dailyAspirin 81 mg tablet,chewable Discontinued 81 MG PO Daily July 20, 2024 1:00am July 26, 2024 8:39amtake 1 tablet by mouth once dailyaspirin 81 MG EC tablet Take 81 mg by mouth Daily ActiveComment on above:Take 81 mg by mouth.cefpodoxime 200 mg oral tablet (11 sources)Cephalosporin AntibacterialStart: 08-21-2024 End: 79-65-5982mgyu 1 tablet by mouth twice daily at mealtimeCefpodoxime 200 mg tablet Discontinued 200 MG PO Twice daily 6 3 0 August 21, 2024 12:00am October 03, 2024 10:22am must administer with a meal/foodclopidogrel 75 mg oral tablet (20 sources)P2Y12 Platelet InhibitorStart: 04-24-2020 End: 96-34-9457yvwo 1 tablet by mouth once dailyClopidogrel (Plavix) 75 mg tablet Discontinued 75 MG PO Daily July 20, 2024 1:00am July 26, 2024 8:40amclotrimazole 10 mg oral lozenge (14 sources)Azole AntifungalStart: 08-03-2024 End: 35-01-9470Beabqvbstgyr 10 mg joyce Discontinued 10 MG MUCOUS MEM Five times daily 70 14 0 August 03, 2024 12:00am August 17, 2024 11:32am Candidiasis of mouth Candidal stomatitis thrush use for 10 days, if symptoms persist, then complete the 14 days dispenseddexamethasone 6 mg oral tablet (6 sources)CorticosteroidStart: 12-15-6981llon 1 tablet by mouth every twenty- four hoursdexAMETHasone 6 MG 1 tablet Orally Once a day for 5 day(s) Nov, Not-Taking/PRNDocusate (5 sources)Docusate Sodium Not-Taking/PRNDocusate Sodium Not-TakingDocusate Sodium Activedorzolamide 20 mg/ml ophthalmic solution (20 sources)Carbonic Anhydrase InhibitorStart: 07-20-2024 End: 49-29-3338izuv 1 drop(s) into the eye(s) three times dailyDorzolamide 2 % drops Discontinued 1 DROPS EYE-BOTH Three times daily July 20, 2024 1:00am July 26, 2024 8:40amStart: 07-20-2024 End: 85-56-5237tmmo 1 drop(s) into the eye(s) three times dailyDorzolamide 2 % drops Discontinued 1 DROPS EYE-BOTH Three times daily July 20, 2024 1:00am July 26, 2024 8:40amStart: 66-88-3745rrtu 1 drop(s) into the eye(s) three times dailydorzolamide (Trusopt) 2 % ophthalmic solution Administer 1 drop into both eyes 3 times a day. 07/27/2023 ActiveStart: 40-86-9475soip 1 drop(s) into the eye(s) twice dailyDorzolamide 2 % drops Active 1 DROPS OPHTHALMIC Twice daily March 12th, 2024 12:00am Complies with drug therapyStart: 07-27-2023 Dorzolamide 2 % drops Active DROPS OPHTHALMIC July 26, 2023 11:00pmStart: 55-66-0101Tgtwbkqqyio Active DROPS OPHTHALMIC July 27, 2023 12:00amStart: 20-05-4195lrsd 1 drop(s) into the eye(s) twice dailydorzolamide ophthalmic 2% solution 1 drop(s), OPTH, BID, Refill(s) 0, each eye Start Date: 04/24/20 Status: Ordered Repeat number: 1Start: 21-37-0696fhwi 1 drop(s) into the eye(s) twice dailydorzolamide [...] oral capsule (20 sources)Tetracycline-class DrugStart: 07-12-2024 End: 59-90-3615ueyf 1 capsule by mouth twice dailyDoxycycline Monohydrate 100 mg capsule Discontinued 100 MG PO Twice daily July 20, 2024 1:00am July 26, 2024 8:40amfamotidine 20 mg oral tablet (20 sources)Histamine-2 Receptor AntagonistStart: 07-27-2023 End: 68-60-0857hzpf 1 tablet by mouth once dailyFamotidine 20 mg tablet Discontinued 20 MG PO Daily July 20, 2024 1:00am July 26, 2024 8:41am fluticasone propionate 0.05 mg/actuat metered dose nasal spray (20 sources)CorticosteroidStart: 59-15-1125gacnslxqyeb Nasal 0.05 mg/inh [facility] See Instructions, 16 gm, Refill(s) 0, USE 1 SPRAY IN BOTH NOSTRILS TWICE DAILY, [facility], 160, cm, 01/10/24 9:43:00 EDT, Height/Length Dosing, 77.8, kg, 01/10/24 9:43:00 EDT, Weight Dosing Start Date: 01/18/24 Status: Ordered Quantity: 16.0 Unit: g Repeatnumber: 1Start: 08-24-2022 End: 99-31-8433xbug 1 spray(s) nasal route once dailyFluticasone Propionate 50 mcg/actuation spray,suspension Discontinued 2 SPRAY INTRANASAL Daily July 20, 2024 1:00am July 26, 2024 8:41am administer into each nostrilStart: 12-52-3380mcmcylejhyq (FLONASE) 50 mcg/actuation nasal spray 1 [place]. 08/24/2022 ActiveStart: 38-89-4329tsdl 1 spray(s) nasal route twice dailyFlonase 0.05 mg/inh [place] 1 spray(s), Nasal, BID, 16 gram, Refill(s) 0, each nostril, [facility] ([facility] ), 167.6, cm, 08/24/22 8:10:00 EDT, Height/Length Dosing, 83.4, kg, 08/24/22 8:10:00 EDT, Weight Dosing Start Date: 08/24/22 Status: OrderedStart: 49-24-5054Vwjon: 69-74-1723evgf 50 ug by inhalation twice dailyfluticasone propionate [...] MCG/ACT Nasal for 30 ActiveComment on above:1 [place].irbesartan 300 mg oral tablet (20 sources)Angiotensin 2 Receptor BlockerStart: 04-24-2020 End: 50-75-9942rbbp 1 tablet by mouth once daily in the morningIrbesartan 300 mg tablet Discontinued 300 MG PO Every morning July 20, 2024 1:00am July 26, 2024 8:41amComment on above:Take 300 mg by mouth.24 hr isosorbide mononitrate 30 mg extended release oral tablet (20 sources)Nitrate VasodilatorStart: 60-62-5309qlxz 1 tablet by mouth every twenty-four hoursIsosorbide Mononitrate 30 mg tablet extended release 24 hr Active MG PO July 26, 2023 11:00pmStart: 04-24-2020 End: 46-28-4280lbxz 1 tablet by mouth once daily in the morning, then take 1 tablet by mouth every twenty-four hoursIsosorbide Mononitrate 30 mg tablet extended release 24 hr Discontinued 30 MG PO Every morning July 27, 2023 12:00am July 26, 2024 8:42amComment on above:Take 30 mg by mouth.lactulose 667 mg/ml oral solution (15 sources)Osmotic LaxativeStart: 08-02-2024 End: 51-53-9776hjky 10 g by mouth once daily for constipationLactulose 10 gram/15 mL solution Discontinued 10 GM PO Daily as needed for constipation 450 30 0 August 02, 2024 12:00am August 20, 2024 6:06pm Constipation Constipation, unspecified use everyday until you have a bowel movement daily.Start: 08-02-2024 End: 02-58-9617pugl 10 g by mouth once daily for constipationLactulose 10 gram/15 mL solution Discontinued 10 GM PO Daily as needed for constipation 450 30 August 02, 2024 12:00am August 20, 2024 6:06pm use everyday until you have a bowel movement daily.Start: 04-30-7281nygj 10 g by mouth once daily for constipationLactulose 10 gram/15 mL solution Active 10 GM PO Daily as needed for constipation 450 30 August 02, 2024 12:00am use everyday until you have a bowel movement daily.latanoprost 0.05 mg/ml ophthalmic solution (20 sources)Prostaglandin AnalogStart: 07-20-2024 End: 85-77-7266oejh 1 drop(s) into the eye(s) once daily in the evening Latanoprost 0.005 % drops Discontinued 1 DROPS EYE-BOTH Every evening July 20, 2024 1:00am July 26, 2024 8:42amStart: 30-62-2414qlyt 1 drop(s) into the eye(s) once dailyLatanoprost Active DROPS OPHTHALMIC Daily July 27, 2023 12:00amStart: 26-74-8144ehevvadwsqk Opth 0.005% Janee Refill(s) 0, 10 mL, 0 Refill(s) Start Date: 05/19/23 Status: Ordered Repeat number: 1Start: 05-19-2023 End: 92-12-4699xsjg 1 drop(s) into the eye(s) once daily in the evening Latanoprost 0.005 % drops Discontinued 1 DROPS EYE-BOTH Every evening July 20, 2024 1:00am July 26, 2024 8:42amStart: 22-64-8682rdumuhmmufh (Xalatan) 0.005 % ophthalmic solution Administer 1 drop into both eyes. 05/19/2023 ActiveStart: 47-88-6515bwljdidatqy ophthalmic qPM, Refill(s) 0, Dry eyes Start Date: 04/24/20 Status: OrderedStart: 21-81-5366kwbstftskts ophthalmic qPM, Refill(s) 0 Start Date: 04/24/20 [...] (20 sources)Antiarrhythmic, Amide Local AnestheticStart: 07-20-2024 End: 02-77-1231Liaottivo-Prilocaine 2.5-2.5 % cream Discontinued 2 GM TOPICAL as needed July 20, 2024 1:00am July 26, 2024 8:42amStart: 07-13-2024 End: 99-18-8588Ynuxbrknc-Prilocaine 2.5-2.5 % cream Discontinued 2 GM TOPICAL Once as needed for pain 30 2 July 13, 2024 2:08pm October 03, 2024 10:23am Apply 1 hour prior to accessing port.Magic Mouthwash W/Lidocaine 240 Ml Bottle 240 mL bottle (20 sources)Start: 08-23-2024 End: 71-85-8310bfki 10 mL by mouth four times daily [...] call when they need refillStart: 08-23-2024 End: 82-48-1686zlwu 10 mL by mouth four times daily as neededMagic Mouthwash W/Lidocaine 240 Ml Bottle 240 mL bottle Discontinued 10 ML PO Four times daily as needed for mucositis 240 August 23, 2024 10:14am October 03, 2024 10:23am Take 10ml by mouth, four times a day, as needed. SWISH AND SWALLOW. will call when they need refillStart: 50-65-6946vtab 10 mL by mouth four times daily as needed Magic Mouthwash W/Lidocaine 240 Ml Bottle 240 mL bottle Active 10 ML PO Four times daily as needed for mucositis 240 August 23, 2024 10:14am Take 10ml by mouth, four times a day, as needed. SWISH ANDSWALLOW. will call when they need refillStart: 07-20-2024 End: 15-63-5936wxho 1 mL by mouth four times daily as neededMagic Mouthwash W/Lidocaine 240 Ml Bottle 240 mL bottle Discontinued ML PO Four times daily as needed 240 July 20, 2024 1:00am July 26, 2024 8:42amStart: 07-19-2024 End: 61-87-4875ahso 10 mL by mouth four times daily as neededMagic Mouthwash W/Lidocaine 240 Ml Bottle 240 mL bottle Discontinued 10 ML PO Four times daily as needed for mucositis 240 5 July 19, 2024 1:00am August 20, 2024 6:07pm Squamous cell carcinoma of oropharynx Malignant neoplasm of oropharynx, unspecified Take 10ml by mouth, four times a day as needed. SWISH AND SWALLOW. Start: 07-19-2024 End: 47-09-8923mutw 10 mL by mouth four times daily [...] as needed. SWISH AND SWALLOW.Start: 07-06-2024 End: 15-92-7223qvhp 10 mL by mouth four times daily as neededMagic Mouthwash W/Lidocaine 240 Ml Bottle 240 mL bottle Discontinued 10 ML PO Four times daily as needed for mucositis 240 0 July 06, 2024 1:00am August 23, 2024 10:15am Squamous cell carcinomaof oropharynx Malignant neoplasm of oropharynx, unspecified Take 10ml by mouth, four times a day, as needed. SWISH AND SWALLOW. Start: 07-06-2024 End: 68-13-8742bctp 10 mL by mouth four times daily as neededMagic Mouthwash W/Lidocaine 240 Ml Bottle 240 mL bottle Discontinued 10 ML PO Four times daily as needed for mucositis 240 July 06, 2024 1:00am August 23, 2024 10:15am Take 10ml by mouth, four times a day, as needed. SWISH AND SWALLOW.Start: 43-97-7600rpaz 10 mL by mouth four times daily as neededMagic Mouthwash W/Lidocaine 240 Ml Bottle 240 mL bottle Active 10 ML PO Four times daily as needed for mucositis 240 July 06, 2024 1:00am Take 10ml by mouth, four times a day, as needed. SWISH AND SWALLOW.Start: 59-12-5585jtvi 10 mL by mouth four times daily as neededMagic Mouthwash W/Lidocaine 240 Ml Bottle 240 mL bottle Active 10 ML PO Four times daily as needed for mucositis 240 July 06, 2024 12:00am Take 10ml by mouth, four times a day, as needed. SWISHAND SWALLOW.metFORMIN hydrochloride 500 mg oral tablet (20 sources)BiguanideStart: 22-97-7068wlfy 1 tablet by mouth twice daily metFORMIN XR (Glucophage-XR) 500 MG 24 hr tablet Indications: Type 2 diabetes mellitus with hyperglycemia, without long-term current use of insulin ([facility]) TAKE 1 TABLET BY MOUTH TWICE DAILY 200 tablet2 05/01/2024 ActiveStart: 05-31-2023 End: 19-08-5815kusq 1 tablet by mouth once daily in the morningMetformin 500 mg tablet Discontinued 500 MG PO Every morning July 20, 2024 1:00am July 26, 2024 8:43amStart: 49-79-3302utkf 1 tablet by mouth twice dailymetFORMIN XR (Glucophage-XR) 500 MG 24 hr tablet Indications: Type 2 diabetes mellitus with hyperglycemia, without long-term current use of insulin (CMS/HCC) TAKE 1 TABLET BY MOUTH TWICE DAILY 180 tablet 3 05/18/2023 ActiveStart: 66-27-6128guey 1 mg by mouth twice dailymetformin 500 mg ER Tab mg tab(s), Oral, BID, Refills(s) 0, High blood sugar Start Date: 04/24/20 Status: Orderedtake 1 tablet by mouth once dailymetFORMIN XR 500 mg 24 hr tablet Take 1 tablet (500 mg) by mouth once daily. ActiveComment on above:Take 500 mg by mouth.5 ml midazolam 1 mg/ml injection (1 source)BenzodiazepineStart: 06-05-2024 End: 60-04-2870umfxvcsjsqe, Once PRN Procedure, Starting on Wed06/05/24 at 1345, For 1 dose, Intraproceduremometasone furoate 1 mg/ml topical cream (20 sources)CorticosteroidStart: 06-14-2024 End: 79-39-4579Ahcpucmbvd 0.1 % cream Discontinued 1 APPLIC TOPICAL Daily July 20, 2024 1:00am July 26, 2024 8:43amMultivitamin (One Daily Multivitamin) tablet (16 sources)Start: 07-20-2024 End: 84-05-2407ffjz 1 tablet by mouth once dailyMultivitamin (One Daily Multivitamin) tablet Discontinued 1 TAB PO Daily July 20, 2024 1:00am July 26, 2024 8:43amnystatin 061049 unt oral tablet (20 sources)Polyene AntifungalStart: 08-17-2024 End: 12-37-4416hfak 1 tablet by mouth four times dailyNystatin 500,000 unit tablet Discontinued 615050 UNIT PO Four times daily 40 10 September 14, 2024 9:24am November 23, 2024 10:01amStart: 08-02-2024 End: 44-64-8521Xumlwpuj 100,000 unit/mL suspension Discontinued 775116 UNIT PO Four times daily 224 14 0 August 02, 2024 12:00am August 20, 2024 6:07pm Candidiasis of mouth Candidal stomatitis oral thrush administer 1/2 of dose in each side of the mouthNystatin 100,000 unit/mL suspension (8 sources)Start: 08-02-2024 End: 55-07-4498Cfzbnjdz 100,000 unit/mL suspension Discontinued 615262 UNIT PO Four times daily 224 14 July 12:00am August 20, 2024 6:07pm administer 1/2 of dose in each side of the mouthStart: 20-79-5716Rvunrrax 100,000 unit/mL suspension Active 507573 UNIT PO Four times daily 224 14 August 02, 2024 12:00am administer 1/2 of dose in each side of the mouthOLANZapine 2.5 mg oral tablet (20 sources)Atypical AntipsychoticStart: 08-09-2024 End: 83-10-9393wkxy 1 tablet by mouth twice dailyOlanzapine 2.5 mg tablet Discontinued 2.5 MG PO Twice daily 30 August 09, 2024 12:00am November 23, 2024 10:02amtake 2 tablets by mouth at bedtimeOLANZapine (ZyPREXA) 2.5 MG tablet Take 5 mg by mouth at bedtime Activeomeprazole 40 mg delayed release oral capsule (20 sources)Proton Pump InhibitorStart: 08-24-2022 End: 23-02-1108mjin 1 capsule by mouth once daily in the morningOmeprazole 40 mg capsule,delayed release(DR/EC) Discontinued 40 MG PO Every morning July 2051:00am July 26, 2024 8:43amStart: 44-28-9147fskmgufjdf Oral, Daily, Refills(s) 0 Start Date: 04/27/22 Status: OrderedOmeprazole ActiveComment on above:Take 40 mg by mouth.ondansetron 4 mg disintegrating oral tablet (20 sources)Serotonin-3 Receptor AntagonistStart: 07-20-2024 End: 72-61-1654bjgj 2 tablets by mouth every eight hoursOndansetron 4 mg tablet,disintegrating Discontinued 8 MG PO Every 8 hours July 20, 2024 1:00am July 26, 2024 8:43amStart: 24-42-9107fkvv 1 tablet by mouth every eight hours as needed for nausea and vomitingOndansetron 8 mg tablet,disintegrating Active 8 MG PO Every 8 hours as needed for nausea and vomiting 30 June 14, 2024 1:00am Complies with drug therapyoxyCODONE hydrochloride 1 mg/ml oral solution (20 sources)Opioid AgonistStart: 82-79-3416sjrd 7.5 mg by mouth every eight hours as needed for painoxycodone 5 mg/5 mL oral solution take 7.5 mg q 8 hrs as needed for pain, Refills(s) 0 Start Date: 08/22/24 Status: Ordered Repeat number: 1Start: 07-20-2024 End: 17-90-3560rcej 10 mg by mouth every four hours as needed for painOxycodone 5 mg/5 mL solution Discontinued 10 MG PO Every 4 hours as needed for pain 750 15 0 August 16, 2024 September 21, 2024 3:02pm Neoplasm related pain 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) Malignant neoplasm of oropharynx, unspecifiedStart: 07-19-2024 End: 28-52-0156lflk 5 mg by mouth every four to six hours as neededOxycodone 5 mg/5 mL solution Discontinued 5 MG PO EVERY 4-6 HOURS as needed 0 July 20, 2024 1:00am July 26, 2024 8:44amStart: 05-11-2024 End: 56-98-9736xlye 1 tablet by mouth every six hours [...] mg oral tablet (20 sources)PhenothiazineStart: 06-14-2024 End: 27-04-9549joia 1 tablet by mouth every eight hours as needed Prochlorperazine Maleate (Compazine) 10 mg tablet Discontinued 10 MG PO Every 8 hours as needed July 20, 2024 1:00am July 26, 2024 8:44amPsyllium Husk (Fiber (Psyllium Husk)) 0.4 gram capsule (20 sources)Start: 07-20-2024 End: 28-71-0529Psnnpzbc Husk (Fiber (Psyllium Husk)) 0.4 gram capsule Discontinued 0.4 GM PO Daily July 2051:00am July 26, 2024 8:44amStart: 06-22-2024 End: 85-39-6957Kfmmmzou Husk (Fiber (Psyllium Husk)) 0.4 gram capsule Discontinued 0.4 GM PO Daily June 22, 2024 1:00am August 20, 2024 6:08pm Start: 11-85-7662Azofosri Husk (Fiber (Psyllium Husk)) 0.4 gram capsule Active 0.4 GM PO Daily June 22, 2024 1:00amStart: 23-74-2891Yshspowu Husk (Fiber (Psyllium Husk)) 0.4 gram capsule Active 0.4 GM PO Daily June 22, 2024 12: 00amrosuvastatin calcium 10 mg oral tablet (20 sources)HMG-CoA Reductase InhibitorStart: 04-24-2020 End: 68-80-5932pdyh 1 tablet by mouth once daily in the eveningRosuvastatin 10 mg tablet Discontinued 10 MG PO Every evening July 20, 2024 1:00am July 26, 2024 8:44amCrestor ActiveComment on above:Take 10 mg by mouth.sennosides, long term 8.6 mg oral tablet (8 sources)Start: 08-02-2024 End: 49-00-5843hvio 1 tablet by mouth once daily as needed for constipation Sennosides (Black-Draught Lax-Senna) 8.6 mg tablet Discontinued 8.6 MG PO Twice daily as needed forconstipation 60 30 3 August 02, 2024 12:00am November 23, 2024 10:02am Constipation Constipation, unspecified Use if no bowel movement daily Start: 05-11-2024 End: 31-69-8560rfpw 1 tablet by mouth once dailysennosides (Senokot) 8.6 mg tablet Indications: Acute postoperative pain Take 1 tablet (8.6 mg) by mouth once daily for 2 days. 2 tablet 05/11/2024 05/13/2024 Activesotalol hydrochloride 80 mg oral tablet (20 sources)AntiarrhythmicStart: 62-09-2203nkrqadb (Betapace) 80 mg tablet Take 1 half tablet by mouth 2 times a day. 07/27/2023 ActiveStart: 07-27-2023 End: 33-07-3535Ydwplhh 80 mg tablet Discontinued 40 MG PO Twice daily July 20, 2024 1:00am July 26, 2024 8:44amStart: 23-95-1221upob 1 tablet by mouth once dailySotalol 80 mg tablet Active 80 MG PO Daily July 26, 2023 11:00pmStart: 31-36-7271egcp 0.5 tablet by mouth twice dailysotalol (Betapace) 80 mg tablet Take 0.5 tablets (40 mg) by mouth 2 times a day. 07/27/2023 ActiveComment on above:Take 80 mg by mouth.sucralfate 100 mg/ml oral suspension (20 sources)Aluminum ComplexStart: 09-14-2024 End: 41-03-7761qpoa 1 mL by mouth three times dailySucralfate 100 mg/mL suspension Discontinued 10 ML PO Three times daily 450 15 1 September 14, 2024 12:00 am October 03, 2024 10:26amStart: 12-76-7778phnijmsivl (CARAFATE) 1 gram tablet Take 1 g by mouth. 12/15/2022 ActiveStart: 54-90-4430qdgvoacoaq 1 g Tab Refills(s) 0, Control of stomach acid Start Date: 12/15/22 Status: OrderedStart: 77-69-8450cemsapeeat 1 g Tab gm tab(s), Oral, QIDACHS, Refills(s) 0 Start Date: 04/27/22 Status: OrderedSucralfate Not-Taking/PRNSucralfate Not-TakingSucralfate ActiveComment on above:Take 1 g by mouth.temazepam 15 mg oral capsule (6 sources)Benzodiazepinetake 1 capsule by mouth every twenty-four hours Temazepam 15 MG 1 capsule at bedtime as needed Orally Once a day Not-Taking/PRN tiZANidine 4 mg oral capsule (20 sources)Central alpha-2 Adrenergic AgonistStart: 07-20-2024 End: 11-04-1819lzen 1 capsule by mouth once daily in the evening as needed Tizanidine 4 mg capsule Discontinued 4 MG PO Every evening as needed July 20, 2024 1:00am July 26, 2024 8:45amStart: 02-21-2021 End: 90-86-2040kzdj 1 tablet by mouth at bedtimetiZANidine (Zanaflex) 4 MG tablet Indications: Chronic bilateral low back pain, unspecified whethersciatica present TAKE 1/2 TO 1 TABLET BY MOUTH AT BEDTIME 90 tablet 2 01/18/2024 Active End: 28-23-8258zyQXHkgxdg HCl (ZANAFLEX) 4 mg capsule Take 4 mg by mouth. Active tiZANidine HCl ActiveComment on above:Take 4 mg by mouth.zonisamide 25 mg oral capsule (20 sources)Anti-epileptic AgentStart: 97-09-4329Zrhnprdblg Active MG PO July 27, 2023 12:00amStart: 02-15-2023 End: 97-36-1541jvys 1 capsule by mouth twice dailyZonisamide 25 mg capsule Discontinued 25 MG PO Twice daily July 20, 2024 1:00am July 26, 2024 8:45am Problems Active Problems Problem ClassificationProblemDateDocumented DateEpisodic/ChronicAortic; peripheral; and visceral artery aneurysms (20 sources)Ectasia of thoracic aorta; Translations: [Thoracic aortic ectasia] Onset: 078993-60-8574XduiqezSjdsxcj on above:added per 11/05/2023 query response.Cancer of head and neck (20 sources)Malignant tumor of floor of mouth; Translations: [Malignant neoplasm of floor of mouth, unspecified]Onset: 317765-36-3843YoliinyKamlmo of prostate (20 sources)Malignant tumor of prostate; Translations: [Malignant neoplasm of prostate]Onset: 136884-03-8593UztgbsmSdgyuk; other and unspecified primary (2 sources)History of malignant neoplasm of head and/or neck; Translations: [Personal history of malignant neoplasm of other organs and systems]09-11-2024 EpisodicCancer; other and unspecified primary (2 sources)Personal history of malignant neoplasm of other organs and systems; Translations: [Personal historyof malignant neoplasm of other organs and systems]Onset: 85-50-9371PlphfxymBwemize dysrhythmias (20 sources)Ventricular tachycardia; Translations: [Ventricular tachycardia] Onset: 424291-44-9381YejiwagGemosjxgmice of device; implant or graft (7 sources)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; Translations: [Atherosclerosis of coronary artery bypass graft(s) without angina pectoris]Onset: 470818-44-9822NikozewWobhbsgzqt associated with dizziness or vertigo (4 sources)Vertigo; Translations: [Dizziness and giddiness]59-64-1919Ksbtknqc Conduction disorders (20 sources)Cardiac pacemaker in situ; Translations: [Presence of cardiac pacemaker]Onset: 110843-30-1268ZkglkgtCxuatjlv atherosclerosis and other heart disease (20 sources)Coronary arteriosclerosis; Translations: [Atherosclerotic heart disease of [place] coronary artery without angina pectoris]Onset: 01-20-2019 ChronicComment on above:noted in 11/10/2022 Cardiology Consult Note page 11. added per [facility] policy.Diabetes mellitus with complications (20 sources)Neuropathy due to diabetes mellitus; Translations: [Autonomic neuropathy due to type 2 diabetes mellitus]Onset: 470451-81-8254Kkwongw Diabetes mellitus without complication (20 sources)Diabetes mellitus; Translations: [Type 2 diabetes mellitus without complication]Onset: 182775-08-9701XrtzufvYwwbsjd on above:linked DM with HLD per [facility] policy.Disorders of lipid metabolism (20 sources)Hypercholesterolemia; Translations: [Pure hypercholesterolemia, unspecified]Onset: 181787-01-1958VgwptbtGkacwtxje of teeth and jaw (2 sources)Ulceration of gingivae; Translations: [Other specified disorders of gingiva and edentulous alveolarridge]16-36-4031EszytinpUmwzidhyxyuher and diverticulitis (20 sources)Diverticular disease; Translations: [Diverticulosis of intestine, part unspecified, without perforation or abscess without bleeding]Onset: 270270-29-4992ErahguoFqdzvurqyu disorders (20 sources)Gastroesophageal reflux disease with apnea; Translations: [Gastro- esophageal reflux disease withoutesophagitis]Onset: 607033-52-6688Noxfozw Essential hypertension (20 sources)Hypertensive disorder; Translations: [Essential hypertension]Onset: 654433-28-3096QtnwnccSztag of unknown origin (17 sources)Fever; Translations: [Fever, unspecified]73-98-3890Zqlaiqlz Genitourinary symptoms and ill-defined conditions (1 source)Delay when starting to pass -47-5387HnghjxkgOyozpiur (20 sources)Glaucoma; Translations: [Unspecified glaucoma]Onset: 04-03-2022 96-51-7990UflphfbTnheedjj; including migraine (20 sources)Migraine; Translations: [Migraine, unspecified, not intractable, without status migrainosus]Onset: 225876-95-2824BfpimkkTdkbw valve disorders (20 sources)Aortic valve regurgitation; Translations: [Nonrheumatic aortic (valve) insufficiency]Onset: 039051-96-7720ZthhsjiHwsauqok disorders (19 sources)Immunosuppression; Translations: [Immunodeficiency, unspecified] Onset: 009794-29-9962ToncotbIcvazad on above:noted in 08/20/2024 [facility] ED Note page 5. added per [facility] policy.Joint disorders and dislocations; trauma-related (20 sources)Derangement of right knee; Translations: [Unspecified internal derangement of right knee]Onset: 937651-59-2912OhvahydWubxpe and vomiting (20 sources)Nausea; Translations: [Nausea]Onset: 561474-89-1777Fdwglqty Comment on above:noted in 08/16/2024 Palliative Care Consult Note page 5. added per [facility] policy.Neoplasms of unspecified nature or uncertain behavior (4 sources)Benign neoplasm of pancreas; Translations: [Neoplasm of unspecified behavior of digestive system]27-73-9306AqiullozZyfjygbfcgd deficiencies (20 sources)Vitamin D deficiency; Translations: [Vitamin D deficiency, unspecified]Onset: 255027-31-8278YhanndlGlplyifqxybigu (20 sources)Osteoarthritis; Translations: [Arthritis of right ankle]Onset: 412423-07-3436PclgnjiZsmdl aftercare (1 source)Other group home (current) drug therapy; Translations: [OTH CARE HOME CURRENT DRUG THERAPY]Onset: 14-26-2996HsqgwdbeVllit aftercare (1 source)jail (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; Translations: [NEMATOLOGIST CURRENT USE OF ASPIRIN]Onset: 53-81-8508FxmbcazwKsjfg aftercare (1 source)jail (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 of antithrombotics/antiplatelets; Translations: [NEMATOLOGIST ANTITHROMBOT/ANTIPLATLETS]Onset: 17-78-1794Glyvcmvb Other aftercare (1 source)terminal gauger (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 of oral hypoglycemic drugs; Translations: [NEMATOLOGIST USE ORAL HYPOGLYCEMIC DX]Onset: 77-34-5915GzwncoreEqypr aftercare (20 sources)Patient encounter status; Translations: [Encounter for palliative care]00-92-0346UqvrewchRhxzj bone disease and musculoskeletal deformities (20 sources)Osteochondritis dissecans of right ankle; Translations: [Osteochondritis dissecans, right ankle andjoints of right foot]Onset: 854456-15-3307CwfsxbgJrkcn circulatory disease (1 source)Raynaud's syndrome without gangrene; Translations: [RAYNAUDS SYNDROME WITHOUT GANGRENE]Onset: 14-80-7909IncrtsqTruue ear and sense organ disorders (20 sources)Hearing loss; Translations: [Unspecified hearing loss, unspecified ear]Onset: 624474-13-1681YcngybaIfutn ear and sense organ disorders (2 sources)Sensorineural hearing loss, bilateral; Translations: [Sensorineural hearing loss, bilateral]79-40-6349TrtjovxXallf ear and sense organ disorders (1 source)Impacted cerumen, bilateral; Translations: [Impacted cerumen] 71-34-5052BpezcmxiXuomj ear and sense organ disorders (2 sources)Bilateral tinnitus; Translations: [Tinnitus, bilateral]06-23-2024 EpisodicOther gastrointestinal disorders (1 source)Intestinal malabsorption; 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]Onset: 20-60-8662JxzkhwkXeyti gastrointestinal disorders (20 sources)Non-infective diarrhea; 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]Onset: 668270-22-1080NnftqceQkoge gastrointestinal disorders (1 source)Gastrostomy present; Translations: [Gastrostomy status]12-13-2024 ChronicOther gastrointestinal disorders (2 sources)Gastrostomy status; Translations: [Gastrostomy status (Multi)]Onset: 97-27-7624WeduywhWrmzb gastrointestinal disorders (1 source)Pfyfxgvac08-61-8863RyyamzkeBcljp gastrointestinal disorders (6 sources)Hard cpvmi82-69-0400FkrlxymfYifwz gastrointestinal disorders (1 source)Digestive system finding; Translations: [Other specified symptoms and signs involving the digestivesystem and abdomen]Onset: 34-71-9283OoyhkjcwOxtag gastrointestinal disorders (2 sources)Abnormal feces; Translations: [Other fecal abnormalities]Onset: 46-93-1329EeizlorrFxtmp gastrointestinal disorders (3 sources)Loose -94-3128IdcatfldMekqt gastrointestinal disorders (1 source)Non-infective ivwmmcay07-15-2219CycdjvteGnfwu gastrointestinal disorders (3 sources)Swollen abdomen; Translations: [Abdominal distension (gaseous)]Onset: 13-69-0325DnbhrmknCbxld gastrointestinal disorders (9 sources)Dnvvcabe36-77-0470BhzlzogyDwuel gastrointestinal disorders (20 sources)Constipation; Translations: [Constipation, unspecified]08-02-2024 EpisodicComment on above:Secondary to opioids, and decreased oral intakeOther gastrointestinal disorders (1 source)Therapeutic opioid induced gcmuntmvnzgi67-90-8015MsxtcqgeUjuhery on above:noted in 08/16/2024 Palliative Care Consult [...] source)Other chronic pain; Translations: [OTHER CHRONIC PAIN]Onset: 49-96-4270GxyrsmoOiwcu nervous system disorders (20 sources)Carpal tunnel syndrome of left wrist; Translations: [Carpal tunnel syndrome, left upper limb]Onset: 925831-29-0277ZjhcdumNcvew nervous system disorders (20 sources)Carpal tunnel syndrome of right wrist; Translations: [Carpal tunnel syndrome, right upper limb]Onset: 938995-21-3062UmrcdceMmpmg nervous system disorders (20 sources)Neuropathy; Translations: [Polyneuropathy, unspecified]Onset: 985980-03-5763WuvwckcByhfo nervous system disorders (20 sources)Normal pressure hydrocephalus; Translations: [(Idiopathic) normal pressure hydrocephalus]Onset: 090351-05-2513FzrxdaoMoptm nervous system disorders (4 sources)Polyneuropathy; Translations: [Polyneuropathy, unspecified]02-16-2024 ChronicOther nervous system disorders (20 sources)Pain due to neoplastic disease; Translations: [Neoplasm related pain (acute) (chronic)]90-07-0855QdxuopcAjjzpju on above:Jeremie reports increasing severity of throat [...] (chronic); Translations: [Neoplasm related pain (acute) (chronic)]Onset: 004942-24-1797QurokevCnanp nervous system disorders (17 sources)Numbness of udew42-01-8737JdvowqbeQdemw nervous system disorders (18 sources)Acute postoperative pain; Translations: [Other acute postprocedural pain]62-39-3799ZvwqszprQodtq nervous system disorders (1 source)Other acute postprocedural pain; Translations: [Other acute postprocedural pain]Onset: 52-70-0935WlicuggtLhqlw non-traumatic joint disorders (4 sources)Other instability, right ankle; Translations: [OTHER INSTABILITY RIGHT ANKLE]Onset: 91-55-1025QmkceyrnUsrcq nutritional; endocrine; and metabolic disorders (1 source)Body mass index 25-29 - cjmnsgxybs77-52-5712LezkhyecIdffd screening for suspected conditions (not mental disorders or infectious disease) (2 sources)Screening for malignant neoplasm of colon done; Translations: [Encounter for screening for malignant neoplasm of colon]Onset: 02-25-2023 EpisodicOther upper respiratory infections (1 source)Acute upper respiratory infection, unspecified; Translations: [Acute upper respiratory infections of unspecified site]39-62-7290UljkrtqtQepxsbxcy; thrombophlebitis and thromboembolism (1 source)Personal history of other venous thrombosis and embolism; Translations: [PERS HX OTH VENOUS THROMBOSIS AND EMBO]Onset: 47-43-1213Nfssxwci Pneumonia (except that caused by tuberculosis or sexually transmitted disease) (18 sources)Pneumonia; Translations: [Pneumonia, unspecified organism]Onset: 115260-44-6262XlbzuosfDdoautjmt (except that caused by tuberculosis or sexually transmitted disease) (1 source)Pneumonia (except that caused by tuberculosis or sexually transmitted disease); Translations: [PNEUMONIA D/T CORONAVIRUS DIS 2018]Onset: 09-28-2022 Residual codes; unclassified (18 sources)Sleep tuvxn75-94-4291VvciofbDthcijka codes; unclassified (20 sources)Obstructive sleep apnea syndrome; Translations: [Obstructive sleep apnea (adult) (pediatric)]Onset: 620537-13-8597RuijuanTykptsru codes; unclassified (20 sources)Daytime somnolence; Translations: [Other hypersomnia]Onset: 510130-47-5692AruyvzcEiljgwgy codes; unclassified (8 sources)Obstructive sleep apnea (adult) (pediatric); Translations: [Obstructive sleep apnea (adult)(pediatric)]ChronicResidual codes; unclassified (4 sources)Other hypersomnia; Translations: [Excessive daytime sleepiness]Onset: 67-27-6904FjzfsgjSzimkubk codes; unclassified (1 source)Sleep apnea, unspecified; Translations: [SLEEP APNEA UNSPECIFIED] Onset: 60-41-8693TxscyhdBbnzxkpp codes; unclassified (20 sources)Central sleep apnea syndrome; 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]Onset: 932580-50-6615BotnpdaCautkhfg codes; unclassified (4 sources)Primary central sleep apnea; Translations: [Unspecified sleep apnea] 23-19-0397NccguqaHmnkbdem codes; unclassified (1 source)Acquired absence of other genital organ(s); Translations: [ACQUIRED ABSENCE OTH GENITAL ORGANS]Onset: 63-88-3028CjusxpbtInvunrzr codes; unclassified (1 source)At risk for imbalanced nutrition, less than body requirements; Translations: [Other specified personal risk factors, not elsewhere classified] 71-48-6962FfcefxolYjqxsetq codes; unclassified (2 sources)Other specified personal risk factors, not elsewhere classified; Translations: [Other specified personal risk factors, not elsewhere classified] Onset: 74-73-2245AszwmxwsWpywcxnhu and history of mental health and substance abuse codes (1 source)Jf-wqfadt86-33gpynzl09-15-8513YpbkfdckLcqerumvm malignancies (2 sources)Secondary malignant neoplasm of neck; Translations: [Secondary malignant neoplasm of other specified sites]29-85-3765KnsoyjyAkanqimxg malignancies (3 sources)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 and neck lymph node; Translations: [Secondary and unspecified malignant neoplasmof lymph nodes of head, face and neck]03-29-2024 ChronicSecondary malignancies (2 sources)Secondary malignant neoplasm of lymph nodes of neck; Translations: [Secondary and unspecified malignant neoplasm of lymph nodes of head, face and neck]98-19-0270XpiektfNuzjxje on above:noted in 08/21/2024 [facility] [place] Summary page 2. added per OP CDI policy.Secondary malignancies (2 sources)Secondary and unspecified malignant neoplasm of lymph nodes of head, face and neck; Translations: [Secondary and unspecified malignant neoplasm of lymph nodes of head, face and neck]Onset: 75-30-2635KttpagiKuismuhhmhe; intervertebral disc disorders; other back problems (20 sources)Spondylosis without myelopathy or radiculopathy, lumbar region; Translations: [Other intervertebraldisc degeneration, lumbar region]Onset: 59-11-9097QipegndGrzlqeo on above:noted in 09/15/2023 Pain Management Consult note page 5. added per OP CDI policy.Unclassified (4 sources)LOW BACK PAIN, UNSPECIFIED; Translations: [LOW BACK PAIN, UNSPECIFIED]Onset: 79-13-6419Dgxwcmrsvugf (8 sources)Patient encounter ifhpsb63-77-6188Riwfbcocmzil (4 sources)A [facility] screening has identified you as [...] Four Ways to Beat the Frailty Risk [email or web address]/lctt-zrsgwp-jmva- rkae-rz-vpeh-the-fra vhjq-hvci47-99slig24-35-2217Xhlwnmiengoi (1 source)Mild pulmonary obvshfrdaxtw91-80-8905Iesloom on above:added per 08/23/2024 query response.Unclassified (10 sources)Resume your Plavix tomorrowUnclassified (1 source)C10.9 - Malignant neoplasm of oropharynx, unspecifiedUrinary tract infections (1 source)Urinary tract infectious popsrlu52-27-9433GjjxptvjAfqxq infection (10 sources)Disease caused by 2019-nCoV; Translations: [COVID-19]Onset: 09-22-2022 Past or Other Problems Problem ClassificationProblemDateDocumented DateEpisodic/ChronicAbdominal pain (20 sources)Lower abdominal pain; Translations: [Right flank pain]Onset: 04-03-2022 Resolved: 059391-72-3011QjsvvuukYslidbl tract disease (20 sources)Gallstone; Translations: [Calculus of gallbladder without cholecystitis without obstruction]Onset: 04-03-2022 Resolved: 823629-44-0883KrbbqtovRcrsqg of prostate (20 sources)History of malignant neoplasm of prostate; Translations: [Personal history of malignant neoplasm ofprostate]Onset: 338023-56-7449Zmjojqwq Coronary atherosclerosis and other heart disease (7 sources)Stented coronary artery; Translations: [Presence of coronary angioplasty implant and graft]Onset: 474453-80-2911BtcdebybJdtwsjvv of mouth; excluding dental (14 sources)Ulcer of mouth; Translations: [Other forms of stomatitis]Onset: 759618-36-2871SxxgcghoVhrymwcktjinnm ulcer (except hemorrhage) (20 sources)Peptic ulcer; Translations: [Peptic ulcer, site unspecified, unspecified as acute or chronic, without hemorrhage or perforation]Onset: 04-03-2022 Resolved: 589020-05-1377MmrvgofIctblqnmmfjft symptoms and ill-defined conditions (20 sources)Incontinence; Translations: [Incontinence without sensory awareness] Onset: 01-27-2024 Resolved: 849078-16-1467QhnoylbKoxtsaonhhs (20 sources)Hemorrhoids; Translations: [Unspecified hemorrhoids]Onset: 600433-17-5631DhyoxldlTieuoztyiwzz conditions of male genital organs (20 sources)Prostatitis; Translations: [Inflammatory disease of prostate, unspecified]Onset: 805172-30-2823CqtkccbvMdsysqonwkqoy (20 sources)Lymphadenopathy; Translations: [Cervical lymphadenopathy]Onset: 342372-62-2636RgkrtqfrTczmjxz (20 sources)Onychomycosis; Translations: [Tinea unguium]Onset: 01-27-2024 Resolved: 760740-85-7155HvdficbkHxlfgxpcido chest pain (20 sources)Chest wall pain; Translations: [Other chest pain]Onset: 04-03-2022 Resolved: 669752-42-5051NftiynztRwuxg aftercare (6 sources)Encounter for palliative care; Translations: [Encounter for palliative care]Onset: 393138-55-2955VbwghniuUwkyz and unspecified benign neoplasm (20 sources)History of polyp of colon; Translations: [Personal history of colonic polyps]Onset: 03-05-6779CoohnikdSiimg and unspecified benign neoplasm (20 sources)Polyp of colon; Translations: [Polyp of colon]Onset: 01-27-2024 10-72-4569GtuhcfbxTvvpy connective tissue disease (2 sources)Pain in left finger(s); Translations: [PAIN IN LEFT FINGERS]Onset: 11-29-2021 Resolved: 82-39-6600LyochgiuMiomz connective tissue disease (4 sources)Pain in right foot; Translations: [PAIN IN RIGHT FOOT]Onset: 18-26-1989EdhwbgqyBjjxd connective tissue disease (3 sources)Pain in arm, unspecified; Translations: [PAIN IN ARM UNSPECIFIED] Onset: 89-18-2273TzssckruActqy connective tissue disease (1 source)Pain in left upper arm; Translations: [PAIN IN LEFT UPPER ARM]Onset: 79-82-5300LqeyinoeRxdtd connective tissue disease (1 source)Pain in right upper arm; Translations: [PAIN IN RIGHT UPPER ARM]Onset: 70-50-5939YyfagzfrTnoxd connective tissue disease (20 sources)Disorder of musculoskeletal system; Translations: [Other specified disorders of synovium, right ankle and foot]Onset: 857462-79-6313Tbefkqar Other connective tissue disease (20 sources)Pain in limb; Translations: [Pain in unspecified limb]Onset: 01-27-2024 Resolved: 692629-15-2565DixkrefoUklmo diseases of veins and lymphatics (20 sources)Peripheral venous insufficiency; Translations: [Venous insufficiency (chronic) (peripheral)]Onset: 687475-19-2157YwswbthfCqeex gastrointestinal disorders (4 sources)Diarrhea, unspecified; Translations: [DIARRHEA UNSPECIFIED]Onset: 92-40-5966YyjnjizcOxzhp gastrointestinal disorders (20 sources)Dysphagia; Translations: [Dysphagia, unspecified]Onset: 01-12-2023 92-57-6659XyevfonbGmsia gastrointestinal disorders (20 sources)Urgent desire for stool; Translations: [Fecal urgency]Onset: 01-12-2023 Resolved: 641088-88-4371KhggphwdNefzf gastrointestinal disorders (20 sources)Irregular bowel habits; Translations: [Other specified symptoms and signs involving the digestive system and abdomen]Onset: EpisodicOther gastrointestinal disorders (20 sources)Abdominal bloating; Translations: [Abdominal distension (gaseous)] Onset: 01-27-2024 Resolved: 643206-16-3068GogwbhxwGuvrz gastrointestinal disorders (20 sources)Smearing feces; Translations: [Fecal smearing]Onset: 04-03-2022 Resolved: 722413-95-0661XonnmffhAoepf gastrointestinal disorders (20 sources)Constipation, unspecified; Translations: [Constipation, unspecified] Onset: 296752-32-8895GqrfrrerCcskb gastrointestinal disorders (1 source)Dysphagia, unspecified; Translations: [Dysphagia, unspecified]Onset: 77-37-6097SwnbmrykRzshy nervous system disorders (20 sources)Entrapment of left ulnar nerve; Translations: [Lesion of ulnar nerve, left upper limb]Onset: 01-27-2024 Resolved: 434752-57-5039BiajcygAgazw nervous system disorders (20 sources)Entrapment of right ulnar nerve; Translations: [Lesion of ulnar nerve, right upper limb]Onset: 01-27-2024 Resolved: 703035-69-3346MiqagmrOalrk nervous system disorders (1 source)Unspecified disturbances of skin sensation; Translations: [UNS DISTURBANCES OF SKIN SENSATION]Onset: 95-24-4491HukhijddBcuuf nervous system disorders (20 sources)Paresthesia of skin; Translations: [Disturbance of skin sensation] Onset: 763848-78-2912VesufetvPloye nervous system disorders (20 sources)Unsteady when standing; Translations: [Unsteadiness on feet]Onset: 01-27-2024 Resolved: 641998-05-3051JarzkoikSrowj non-epithelial cancer of skin (20 sources)Malignant neoplasm of skin; Translations: [Unspecified malignant neoplasm of skin, unspecified]Onset: 673995-15-4139XezdaoukZyorj non- traumatic joint disorders (20 sources)Arthralgia of the ankle and/or foot; Translations: [Pain in right ankle and joints of right foot]Onset: 238837-70-0232PdrjyfthPasmi nutritional; endocrine; and metabolic disorders (20 sources)Body mass index 30+ - obesity; Translations: [Obesity, unspecified] Onset: 04-03-2022 Resolved: 636652-37-8939OttjderLrria nutritional; endocrine; and metabolic disorders (20 sources)Overweight in adulthood with body mass index of 25 or more but less than 30; Translations: [Body mass index (BMI) 29.0-29.9, adult]Onset: 01-27-2024 55-96-0383YbzvzsniIldxe skin disorders (4 sources)Nail dystrophy; Translations: [NAIL DYSTROPHY]Onset: 06-11-2022 EpisodicOther skin disorders (1 source)Other nail disorders; Translations: [OTHER NAIL DISORDERS]Onset: 76-16-8683SuzhhkqgFpruh skin disorders (20 sources)Mass of neck; Translations: [Localized swelling, mass and lump, neck]Onset: 504910-78-4523DwfblokrGomlqi media and related conditions (20 sources)Otitis media; Translations: [Otitis media, unspecified, unspecified ear]Onset: 04-14-2023 Resolved: 779269-10-3253IdzpxnswFhaokwpbiz disorders (not diabetes) (20 sources)Cyst of pancreas; Translations: [Cyst of pancreas]Onset: 01-12-2023 EpisodicResidual codes; unclassified (20 sources)FH: Stomach cancer; Translations: [Family history of malignant neoplasm of digestive organs]Onset: 037576-33-3527JzovhirxOktsdwqu codes; unclassified (20 sources)Insomnia; Translations: [Insomnia, unspecified]Onset: 04-03-2022 06-54-2108OesrflepEuzooqve codes; unclassified (20 sources)Edema of lower extremity; Translations: [Localized edema]Onset: 604951-46-1000ZrregorgYorkewki codes; unclassified (20 sources)Difficult venous access; Translations: [Other specified health status]Onset: 830743-22-5027AfkxfzkuTpmx and subcutaneous tissue infections (20 sources)Cellulitis of left toe; Translations: [Cellulitis and abscess of toe, unspecified]Onset: 01-27-2024 Resolved: 275940-51-0953LngefwreEyufjmtvqkb; intervertebral disc disorders; other back problems (20 sources)Muscle spasm of back; Translations: [Radiculopathy, cervical region] Onset: 68-85-3586PdvoufygEhsdxhntj-related disorders (20 sources)Hypnotic dependence; Translations: [Sedative, hypnotic or anxiolytic dependence, uncomplicated]Onset: 01-27-2024 Resolved: 24-02-2005WytnewtMmrjcpgpjxwt (1 source)Paroxysmal ventricular tachycardia I47.29Unclassified (1 source)Acute cough R05.1Unclassified (1 source)LOW BACK PAIN, UNSPECIFIED; Translations: [LOW BACK PAIN, UNSPECIFIED] Onset: 08-50-6799Wkgttagdhtnf (7 sources)Onset: 04-07-2024 Resolved: Viral infection (20 sources)Disease caused by 2019-nCoV; Translations: [COVID-19]Onset: 11-10-2022 Resolved: 187851-66-7357Vtrxqkmz Results Test NameValueInterpretationReference RangeFacilityOrders Onlyon 02-06-2025 Orders [id number] Jeremie eBnnett 1940 M Date Provider Department Center 02/06/2025 STACEY ERNANDEZ [facility] Family History Problem Relation Age of Onset Coronary artery disease Mother Kidney disease Mother Heart failure Mother Family Status - Relation Status Age at Mother Father DeceasedMetropolitan Saint Louis Psychiatric CenteralUniProMedica Flower HospitalOffice Visiton 37-29-2532Urlrcp-up [id number] Jeremie Bennett 1940 M Date Provider Department Center 12/05/2024 Giovany-STACEY PATEL CARD [facility] Family History Problem Relation Age of Onset Coronary artery disease Mother Kidney disease Mother Heart failure Mother Family Status - Relation Status Age at Mother Father Level of Service:[address] [place] OFFICE/OUTPATIENT ESTABLISHED LOW [facility]DM [facility] Summaryon 11-21-2024 Ambulatory Visit SummaryAmbulatory Visit [...] Film) fluticasone nasal (fluticasone Nasal 0.05 mg/inh [facility]) furosemide (furosemide 20 mg Tab) irbesartan (irbesartan [...] fluticasone nasal (fluticasone Nasal 0.05 mg/ inh 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 [place] Advance Directives reviewed, present at home. Encouraged [...] maintain a healthy weight. (more content not included)...[facility] CenterComment on above:Result Comment: Electronically Signed By: MARICRUZ TREVINO CNP\.br\Date and Time Signed: 11/21/24 16:03 EDT\.br\Electronically Co-Signed By: Monse Puckett\.br\Date and Time Co-Signed: 11/21/24 14:59EDT Alanine aminotransferase [Enzymatic activity/volume] in Serum or PlasmaOrdered By: Elif Carroll on 12-67-8161ZRJ [Catalytic activity/Vol]14 U/L7-52[facility] CenterComment on above:Performed By: #### MG, SCAN CBC, CMP #### [place] [address] USAAlbumin [Mass/volume] in Serum or Plasma by Bromocresol green (BCG) dye binding methoOrdered By: Elif Carroll on 22-28-3185Howrwll BCG dye [Mass/Vol]4.2 g/dL3.5-5.7FSt. Charles HospitalAlkaline phosphatase [Enzymatic activity/volume] in Serum or PlasmaOrdered By: Elif Carroll on 53-45-1053DVR [Catalytic activity/Vol]80 U/Q55-005PehvceljkLakehealth Beachwood Medical CenterComment on above:Performed By: #### MG, SCAN CBC, CMP #### [facility] [address] [place] [address] USAAspartate aminotransferase [Enzymatic activity/volume] in Serum or PlasmaOrdered By: Elif Carroll on 39-06-2394TVJ [Catalytic activity/Vol]15 U/M88-61IuwpyybtjLakehealth Beachwood Medical CenterComment on above: Performed By: #### MG, SCAN CBC, CMP #### [facility] [address] [place] [address] USABasophils [#/volume] in Blood by Automated countOrdered By: Elif Carroll on 64-20-8200Orunpwzzu (Bld) [#/Vol]0.0 10*3/uL0.0-0.2FSt. Charles HospitalComment on above:Performed By: #### MG, SCAN CBC, CMP #### [facility] [address] [place] [address] USABasophils/100 leukocytes in Blood by Automated count Ordered By: Elif Carroll on 35-84-4057Adnlljdrv/100 WBC (Bld)0.5 %.[facility] CenterComment on above:Performed By: #### MG, SCAN CBC, CMP #### [facility] [address] [place] [address] USABilirubin.total [Mass/volume] in Serum or PlasmaOrdered By: Elif Carroll on 19-13-8898Sumoxgeca [Mass/Vol]0.4 mg/dL0.3-1.0[facility] CenterComment on above:Performed By: #### MG, SCAN CBC, CMP #### [facility] [address] [place] [address] USACalcium [Mass/volume] in Serum or PlasmaOrdered By: Elif Carroll on 94-37-0036Leuebae [Mass/Vol]9.3 mg/dL8.6-10.3FSt. Charles HospitalComment on above:Performed By: #### MG, SCAN CBC, CMP #### [place] [address] USACapillary blood glucose measurement by glucometer (mass/volume)Ordered By: Talib Faustin on 58-47-2352Auulfxx [Mass/Vol]114 mg/dL [facility] CenterComment on above:Random Glucose Reference Range [...] the diagnosis of Diabetes Mellitus. PERFORMED BY: [place] [address] PATHOLOGIST COMMERCIAL CREDIT ANALYST AD ROSENBAUM M.D.Performed By: #### GLULS #### Point of Care testing ,Carbon dioxide, total [Moles/volume] in Serum or PlasmaOrdered By: Elif Carroll on 84-00-4886ZB2 [Moles/Vol]26.6 mmol/L21.0-31.0[facility] CenterComment on above:Performed By: #### MG, SCAN CBC, CMP #### [facility] [address] [place] [address] USAChloride [Moles/volume] in Serum or PlasmaOrdered By: Elif Carroll on 55-46-1713Zmarjnxb [Moles/Vol]104 mmol/F19-970XlsoasqttLakehealth Beachwood Medical CenterComment on above:Performed By: #### MG, SCAN CBC, CMP #### [place] [address] USAComprehensive Metabolic Panelon 55-56-1983Nguvnht [Mass/Vol]4.2 g/dLNormal3.5-5.7The Count Includes The [facility] Physician GroupComment on above: Performed By: #### MG, SCAN CBC, CMP #### [facility] [address] [place] [address] USACreatinine Clr Calc Hvjpbmmb99.92NormalThe Count Includes The [facility] Physician GroupComment on above:Performed By: #### MG, SCAN CBC, CMP #### [facility] [address] [place] [address] USAGFR/1.73 sq M.predicted MDRD (S/P/Bld) [Vol rate/Area] mL/min/{1.73_m2}NormalThe Count Includes The [facility] Physician [facility] HospitalComment on above:Performed By: #### MG, SCAN CBC, CMP #### [place] [address] USACreatinine [Mass/volume] in Serum or PlasmaOrdered By: Elif Carroll on 08-26-7536Vdhgssqzja [Mass/Vol]0.80 mg/dL0.70-1.30[facility] CenterComment on above:Performed By: #### MG, SCAN CBC, CMP #### [place] [address] USAEosinophils [#/volume] in Blood by Automated countOrdered By: Elif Carroll on 44-96-4129Xnefjtuwrzx (Bld) [#/Vol]0.2 10*3/uL0.0-0.45 [facility] CenterComment on above:Performed By: #### MG, SCAN CBC, CMP #### [facility] [address] [place] [address] USAEosinophils/100 leukocytes in Blood by Automated count Ordered By: Elif Carroll on 07-92-8391Eunkuitpcog/100 WBC (Bld)2.9 %.[facility] Beachwood Medical CenterComment on above:Performed By: #### MG, SCAN CBC, CMP #### [facility] [address] [place] [address] USAErythrocyte distribution width [Ratio] by Automated count Ordered By: Elif Carroll on 33-64-2968Pkjsaqpyspc distribution width (RBC) [Ratio]14.7 %12.0-14.8L[facility] Beachwood Medical CenterComment on above: Performed By: #### MG, SCAN CBC, CMP #### [facility] [address] [id number] USAErythrocyte morphology finding [Identifier] in Blood Ordered By: Elif Carroll on 37-01-6476VBF morphology finding Nom (Bld)Normal NormalLakehealth Beachwood Medical CenterComment on above:Performed By: #### MG, SCAN CBC, CMP #### [facility] [address] [id number] USAErythrocytes [#/volume] in Blood by Automated countOrdered By: Elif Carroll on 31-93-7517EMK (Bld) [#/Vol]4.11 10*6/uL3.90-5.60L[facility] Beachwood Medical CenterComment on above:Performed By: #### MG, SCAN CBC, CMP #### [facility] [address] [id number] USAGlucose [Mass/volume] in Serum or PlasmaOrdered By: Elif Carrlol on 22-76-5226Ijeizsu [Mass/Vol]108 mg/mOBrae68-721DmxwhfldwLakehealth Beachwood Medical CenterComment on above:ADA recommended reference rangeRandom [...] By: #### MG, SCAN CBC, CMP #### [facility] [address] [place] [address] USAHematocrit [Volume Fraction] of Blood by Automated count Ordered By: Elif Carroll on 31-42-7316Etqrroefdi (Bld) [Volume fraction]38.5 % Low38.8-50.0L[facility] Beachwood Medical CenterComment on above:Performed By: #### MG, SCAN CBC, CMP #### [facility] [address] [place] [address] USAHemoglobin [Mass/volume] in BloodOrdered By: Elif Carroll on 23-35-7871Mffuzvaysu (Bld) [Mass/Vol]12.8 g/dLLow13.0-17.0L[facility] Beachwood Medical CenterComment on above:Performed By: #### MG, SCAN CBC, CMP #### [facility] [address] [place] [address] USALeukocytes [#/volume] corrected for nucleated erythrocytes in Blood by Automated counOrdered By: Elif Carroll on 80-81-9784RQA corrected for nucl RBC Auto (Bld) [#/Vol]8.5 10*3/uL4.1-10.5FSt. Charles HospitalLeukocytes [#/volume] in Blood by Automated countOrdered By: Elif Carroll on 49-02-1336BKA (Bld) [#/Vol]8.5 10*3/uL4.1-10.5FSt. Charles HospitalComment on above:Performed By: #### MG, SCAN CBC, CMP #### [facility] [address] [place] [address] USALymphocytes [#/volume] in Blood by Automated countOrdered By: Elif Carroll on 56-75-1480Lslaisouwdc (Bld) [#/Vol]1.9 10*3/uL1.00-4.8 [facility] Medical CenterComment on above:Performed By: #### MG, SCAN CBC, CMP #### [facility] [address] [id number] USALymphocytes/100 leukocytes in Blood by Automated count Ordered By: Elif Carroll on 86-87-0375Xlyahuhyjaw/100 WBC (Bld)22.1 %.[facility]wood Medical CenterComment on above:Performed By: #### MG, SCAN CBC, CMP #### [facility] [address] [id number] USAMCH [Entitic mass] by Automated countOrdered By: Elif Carroll on 82-16-5843HSI (RBC) [Entitic mass]31.1 pg27.5-35.2FSt. Charles HospitalComment on above:Performed By: #### MG, SCAN CBC, CMP #### [facility] [address] [place] [address] USAHC Auto (RBC) [Mass/Vol]Ordered By: Elif Carroll on 13-00-0875SERS (RBC) [Mass/Vol]33.2 g/dL32.5-35.6FSt. Charles HospitalMCV [Entitic volume] by Automated countOrdered By: Elif Carroll on 77-06-7045AZU (RBC) [Entitic vol]93.7 fL83.5-101L[facility] Beachwood Medical CenterComment on above:Performed By: #### MG, SCAN CBC, CMP #### [facility] [address] [place] [address] USAMagnesium [Mass/volume] in Serum or PlasmaOrdered By: Elif Carroll on 41-52-5074Xgofdzndk [Mass/Vol]2.1 mg/dL1.9-2.7FSt. Charles HospitalComment on above:Result Comment: PERFORMED BY: [place] [address] PATHOLOGIST COMMERCIAL CREDIT ANALYST AD ROSENBAUM M.D.Performed By: #### MG, SCAN CBC, CMP #### [place] [address] USAMonocytes [#/volume] in Blood by Automated countOrdered By: Elif Carroll on 41-79-3195Jelpnqprs (Bld) [#/Vol]0.8 10*3/uL0.0-0.8L[facility] Medical CenterComment on above:Performed By: #### MG, SCAN CBC, CMP #### [facility] [address] [id number] USAMonocytes/100 leukocytes in Blood by Automated count Ordered By: Elif Carroll on 73-97-7004Zxhqbfafc/100 WBC (Bld)9.2 %.[facility] Medical CenterComment on above:Performed By: #### MG, SCAN CBC, CMP #### [facility] [address] [place] [address] USANeutrophils [#/volume] in Blood by Automated countOrdered By: Elif Carroll on 47-96-7256Sfwslkuinoe (Bld) [#/Vol]5.6 10*3/uL1.8-7.7 [facility] Medical CenterComment on above:Performed By: #### MG, SCAN CBC, CMP #### [facility] [address] [place] [address] USANeutrophils/100 leukocytes in Blood by Automated count Ordered By: Elif Carroll on 92-77-5335Owwdewevbaq/100 WBC (Bld)65.3 %.[facility] Medical CenterComment on above:Performed By: #### MG, SCAN CBC, CMP #### [facility] [address] [place] [address] USANo Panel InformationOrdered By: Elif Carroll on 11-13-2024 Estimated GFR (CKD-EPI)> 60.0 mL/MinLakehealth Beachwood Medical CenterPharmacy Creatinine Clearance (Chem60.92Lakehealth Beachwood Medical CenterNucleated erythrocytes [Presence] in Blood by Automated countOrdered By: Elif Carroll on 53-56-5864Pbjcutoyf RBC Auto Ql (Bld)0.2 /100{WBC}0-0.5FSt. Charles HospitalPET tumor subq tx strat [facility] centeron 09-87-3482DDM tumor subq tx strat [facility] [place] [address] [id number] Nuclear Medicine Report Signed Patient: Jeremie Bennett MR#: [id number] 669 : 1940 Acct:[id number] Age/Sex: 84 / M ADM Date: 11/23/24 Loc: Room: Type: [facility] RCR Attending Dr: Talib Faustin MD Copies to: Mario Urias Jr, DO RAYSHAWN Hilliard MD Norleena Poynter, MD Ordering Provider: Marilia Crouch APRN Date of Service: 11/13/24 PET/PET [...] Jr., D.OAidan 11/13/2024 3:50 PM Dictation Location: [place] [address] Transcribed By: [facility] 11/13/24 1550 Dictated By: Mario Urias Jr, DO 11/13/24 1539 Signed By: 11/13/[address] [facility] Physician GroupPlatelet adequacy [Presence] in Blood by Light microscopyOrdered By: Elif Carroll on 95-45-3669Livyrcabx LM Ql (Bld)[facility]ultman HospitalPlatelet mean volume [Entitic volume] in Blood by Automated countOrdered By: Elif Carroll on 11-13-2024 Platelet mean volume (Bld) [Entitic vol]8.4 fL6.6-10.1FSt. Charles HospitalComment on above:Performed By: #### MG, SCAN CBC, CMP #### [facility] [address] [id number] USAPlatelet morphology finding [Identifier] in BloodOrdered By: Elif Carroll on 49-26-0023Sfxcjozy morphology finding Nom (Bld)[facility] Medical CenterPlatelets [#/volume] in Blood by Automated countOrdered By: Elif Carroll on 28-61-7437Nkaozkroy (Bld) [#/Vol]223 10*3/uL 150-450L[facility]wood Medical CenterComment on above:Performed By: #### MG, SCAN CBC, CMP #### [place] [address] USAPotassium [Moles/volume] in Serum or PlasmaOrdered By: Elif Carroll on 94-19-7485Tjqzrslqo [Moles/Vol]4.2 mmol/L3.5-5.1FSt. Charles HospitalComment on above:Performed By: #### MG, SCAN CBC, CMP #### [place] [address] USAProtein [Mass/volume] in Serum or PlasmaOrdered By: Elif Carroll on 00-50-7064Gmuylnx [Mass/Vol]7.3 g/dL6.4-8.9L[facility] Medical CenterComment on above:Performed By: #### MG, SCAN CBC, CMP #### [place] [address] USAScan and CBCon 53-94-6874Wiwg Corpuscular HGB Conc33.2 g/mKVfqefy87.5-35.6The Count Includes The [facility] Hospital Physician GroupComment on above:Performed By: #### MG, SCAN CBC, CMP #### [place] [address] USANRBC%0.2 /100{WBC}Normal0-0.5The Count Includes [facility] Comment on above:Performed By: #### MG, SCAN CBC, CMP #### [place] [address] USAPlatelet EstimateNormalNormalNormHalifax Health Medical Center of Dayton[facility] Beach Physician GroupComment on above:Performed By: #### MG, SCAN CBC, CMP #### [place] [address] USAPlatelet MorphologyNormalNormalNormHalifax Health Medical Center of Daytona Beach Physician GroupComment on above:Result Comment: PERFORMED BY: [place] [address] PATHOLOGIST COMMERCIAL CREDIT ANALYST AD ROSENBAUM M.D.Performed By: #### MG, SCAN CBC, CMP #### [place] [address] USAWhite Blood Count8.5 [CFU]/mLNormal4.1-10.5The Count Includes The [facility] Physician GroupComment on above:Performed By: #### MG, SCAN CBC, CMP #### [facility] [address] [place] [address] USASerum globulin measurement by calculation (mass/volume) Ordered By: Elif Carroll on 72-83-6316Epgongkn (S) [Mass/Vol]3.1 g/dLLakehealth Beachwood Medical CenterComment on above:Performed By: #### MG, SCAN CBC, CMP #### [facility] [address] [place] [address] USASerum or plasma albumin/globulin mass ratioOrdered By: Elif Carroll on 74-90-0072Gdsjved/Globulin [Mass ratio]1.4 {ratio}[facility] CenterComment on above:Performed By: #### MG, SCAN CBC, CMP #### [facility] [address] [place] [address] USASerum or plasma anion gap determinationOrdered By: Elif Carroll on 63-54-3097Xepem gap [Moles/Vol]10.6 mmol/L6.0-15.0[facility] CenterComment on above:Performed By: #### MG, SCAN CBC, CMP #### [facility] [address] [place] [address] USASodium [Moles/volume] in Serum or PlasmaOrdered By: Elif Carroll on 44-88-9204Suiyso [Moles/Vol]137 mmol/T158-942XaacqmuyvLakehealth Beachwood Medical CenterComment on above:Performed By: #### MG, SCAN CBC, CMP #### [facility] [address] [place] [address] USAUrea nitrogen [Mass/volume] in Serum or PlasmaOrdered By: Elif Carroll on 25-39-5868Xcpz nitrogen [Mass/Vol]29 mg/dLHigh7-25L[facility] Medical CenterComment on above:Performed By: #### MG, SCAN CBC, CMP #### [facility] [address] [id number] USAAmbulatory Visit Summaryon 85-62-2201Mslgcvhqem Visit SummaryAmbulatory Visit Summary JEREMIE BENNETT :1940 [...] Film) fluticasone nasal (fluticasone Nasal 0.05 mg/inh [facility]) furosemide (furosemide 20 mg Tab) irbesartan (irbesartan [...] Appointments Wednesday 2:30 PM EDT With: Where: [address] [address]- Wednesday 1:20 PM EDT With: Allison CASON, Demetrius Rosa Where: [address] [address]- Medications What How Much When Instructions Unchanged nystatin (nystatin 100,000 units/ mL Oral Susp) 4 Milliliter By Mouth 4 times a day Pickup at [facility] #61386 Unchanged albuterol (Albuterol (Eqv-ProAir HFA) 90 mcg/ [...] fluticasone nasal (fluticasone Nasal 0.05 mg/ inh [facility]) See instructions USE 1 SPRAY IN BOTH [...] instructions TAKE 1 CAPSULE BY (more content notincluded)...[facility] Medicine Office/Clinic Noteon 45-50-2126Xzucqg Medicine Office/Clinic NoteFaedward p. boland [facility] Medicine Office/Clinic Note Chief Complaint - The [...] QID, # 112 mL, Refills(s) 1, Pharmacy: [id number], 160, cm, 10/30/24 17:38:00 EDT, Height/Length Dosing, [...] to opioid therapy Coronary artery disease involving [place] coronary artery of [place] heart without angina pectoris Diabetic autonomic neuropathy [...] patch(es), Topical, q72hr fluticasone Nasal 0.05 mg/inh [facility], See Instructions furosemide 20 mg Tab, 20 mg= 1 tab(s), Oral, Daily irbesartan 300 mg Tab, 300 mg= 1 tab(s), Oral, Daily isosorbide mononitrate, 30 mg, Oral, qAM latanoprost Opth 0.005% Janee metformin 500 mg ER T (more content not included)...[facility] CenterComment on above:Result Comment: Electronically Signed By: Demetrius Cooper MD\.br\Date and Time Signed: 10/30/24 18:01 EDTAmbulatory Visit Summaryon 65-69-4042Grjzbezrhj Visit SummaryAmbulatory Visit Summary JEREMIE BENNETT :1940 [...] Film) fluticasone nasal (fluticasone Nasal 0.05 mg/inh [facility]) furosemide (furosemide 20 mg Tab) irbesartan (irbesartan [...] Appointments Wednesday 2:30 PM EDT With: Where: [address] [id number]- Wednesday 3:20 PM EDT With: Allison CASON, Demetrius Rosa Where: [address] [address]- Medications What How Much When Instructions Unchanged [...] fluticasone nasal (fluticasone Nasal 0.05 mg/ inh [facility]) See instructions USE 1 SPRAY IN BOTH [...] to opioid therapy Coronary artery disease involving [place] coronary artery of [place] heart without angina pectoris Diabetic autonomic neuropathy associated with type 2 diabetes mellitus Diverticulosis FH: stomach can (more content not included)...[facility] Ambulatory Visit SummaryAmbulatory Visit Summary JEREMIE BENNETT [...] Film) fluticasone nasal (fluticasone Nasal 0.05 mg/inh [facility]) furosemide (furosemide 20 mg Tab) irbesartan (irbesartan [...] Appointments Wednesday 2:30 PM EDT With: Where: [address] [address]- Wednesday 3:20 PM EDT With: Allison CASON, Demetrius Rosa Where: [address] [address]- Medications What How Much When Instructions Unchanged [...] fluticasone nasal (fluticasone Nasal 0.05 mg/ inh [facility]) See instructions USE 1 SPRAY IN BOTH [...] to opioid therapy Coronary artery disease involving [place] coronary artery of [place] heart without angina pectoris Diabetic autonomic neuropathy associated with type 2 diabetes mellitus Diverticulosis FH: stomach cancer Former smoker GERD with apnea Gla (more content not included)...[facility] Medicine Office/Clinic Noteon 15-29-3991Venncu Medicine Office/Clinic NoteFaedward p. boland [facility] Medicine Office/Clinic Note Chief Complaint Concerns about [...] to opioid therapy Coronary artery disease involving [place] coronary artery of [place] heart without angina pectoris Diabetic autonomic neuropathy [...] Irregular bowel habits Procedure/Surgical (more content not included)...[facility] Medical CenterComment on above:Result Comment: Electronically Signed By: Allison CASON, Demetrius Rosa\.marco a\Date and Time Signed: 10/12/24 15:08 EDTCapillary blood glucose measurement by glucometer (mass/volume)Ordered By: Veena Adkins on 07-07-3241Pywskti [Mass/Vol]103 mg/dLCleveland Clinic Medina Hospital Comment on above:Random Glucose Reference Range [...] Point of Care testing ,GLUCOSE POCT GLUCOMETERSon 38-57-0689DCVYOWE2Bue1: Cleaned MeterSouthPointe Hospital Glucose [Mass/Vol]103 mg/dLNOMercy McCune-Brooks HospitalComment on above:Random Glucose Reference Range is dependent on time and content of last meal. Glucose of more than 200 mg/dL in a nonstressed, ambulatory subject supports the diagnosis of Diabetes Mellitus. SouthPointe HospitalGlucose Poct Glucometerson 11-03-1112Ucljzfe4Mhm9: Cleaned Meter NormalThe Count Includes The [facility] Hospital Physician GroupComment on above:Result Comment: PERFORMED BY: [facility] [address] [place] [address] PATHOLOGIST COMMERCIAL CREDIT ANALYST HEBER SHANNON M.D.Performed By: #### GLULS #### Point of Care testing ,No Panel InformationOrdered By: Veena Adkins on 75-81-4145Baiadbm Glucose CommentGlu2: cleaned meterLakehealth Beachwood Medical CenterFaedward [facility] Medicine Office/Clinic Noteon 53-24-0775Akesoj Medicine Office/Clinic NoteFaedward p. boland [facility] Medicine Office/Clinic Note Chief Complaint ER follow up Abdominal pain and difficulty swallowing HPI Staff 2 week follow up to RUQ pain. Liver US ordered @ [facility]. Instructed to get done if pain worsens. Has since then gone to [facility] ER CC: abdominal pain & constipation States [...] day(s), # 140 mL, Refills(s) 0, Pharmacy: [id number], 160, cm, 09/28/24 14:41:00 EDT, Height/Length Dosing, [...] oral thrush. I prescribed Nystatin in a mgmge-iva-yyyoelk method to effectively address the thrush symptoms [...] to opioid therapy Coronary artery disease involving [place] coronary artery of [place] heart without angina pectoris Diabetic autonomic neuropathy associated with type 2 diabetes mellitus Diverticulo (more content not included)...[facility] Comment on above:Result Comment: Electronically Signed By: Allison CASON, Demetrius [place].br\Date and Time Signed: 09/28/24 15:12 EDTAlanine aminotransferase [Enzymatic activity/volume] in Serum or PlasmaOrdered By: Maru Hayes on 82-16-1596XYA [Catalytic activity/Vol]Alanine aminotransferase [Enzymatic activity/volume] in Serum or Plasma[address] [place], [place] [address]ALT [Catalytic activity/Vol]9 U/LNormal[address] [place], [place] [address]Comment on above:Performed By: #### MG, SCAN CBC, CMP #### [facility] [address] [place] [address] USAAlbumin [Mass/volume] in Serum or Plasma by Bromocresol green (BCG) dye binding methoOrdered By: Maru Hayes on 54-23-3335Bfvtkdy BCG dye [Mass/Vol]Albumin [Mass/volume] in Serum or Plasma by Bromocresol green (BCG) dye binding metho3.5-5.7FSt. Charles HospitalAlbumin BCG dye [Mass/Vol]3.5 g/dL3.5-5.7FSt. Charles HospitalAlkaline phosphatase [Enzymatic activity/volume] in Serum or PlasmaOrdered By: Maru Hayes on 21-88-3922ZDX [Catalytic activity/Vol]Alkaline phosphatase [Enzymatic activity/volume] in Serum or Iwqzjr93-705Hvvzgxhke[address] StreetALP [Catalytic activity/Vol]81 U/MMgynbz57-147Vdnmpqehf[address] [place] [address] Comment on above:Performed By: #### MG, SCAN CBC, CMP #### [facility] [address] [place] [address] USAAppearance of UrineOrdered By: Maru Hayes on 01-03-2425Baivhvdrma (U)Urine appearanceCleCleveland Clinic Foundation Appearance (U)ClearNormalClearLakehealth Beachwood Medical CenterComment on above: Order Comment: Name Collection Type:: Clean-Voided MidstreamPerformed By: #### UA #### [place] [address] USAAspartate aminotransferase [Enzymatic activity/volume] in Serum or PlasmaOrdered By: Maru Hayes on 56-20-0898TUI [Catalytic activity/Vol]Aspartate aminotransferase [Enzymatic activity/volume] in Serum or Fzvrbq12-03Nrjdwedqx[address]AST [Catalytic activity/Vol]14 U/L Cqzbrh16-33Ijdqslfuu[address] [place], [place] [address]Comment on above:Performed By: #### MG, SCAN CBC, CMP #### [facility] [address] [place] [address] USABasic Metabolic Panelon 13-18-4551Idijyuhowh Clr Calc Sjdvbsbm78.79[facility] Physician GroupComment on above:Performed By: #### MG, SCAN CBC, CMP #### [facility] [address] [place] [address] USAGFR/1.73 sq M.predicted MDRD (S/P/Bld) [Vol rate/Area] mL/min/{1.73_m2}NormalThe Count Includes The [facility] Physician GroupComment on above:Performed By: #### MG, SCAN CBC, CMP #### [place] [address] USABasophils Auto (Bld) [#/Vol]Ordered By: Maru Hayes on 27-81-1059Ueoqdwjcn (Bld) [#/Vol]Automated basophil count0.0-0.2FSt. Charles HospitalBasophils [#/volume] in Blood by Automated countOrdered By: Maru Hayes on 85-32-6595Cwmdchwvy (Bld) [#/Vol]0.1 10*3/uLNormal0.0-0.2 [facility] CenterComment on above:Result Comment: PERFORMED BY: [place] [address] PATHOLOGIST COMMERCIAL CREDIT ANALYST HEBER SHANNON M.D.Performed By: #### MG, SCAN CBC, CMP #### [place] [address] USABasophils/100 WBC Auto (Bld)Ordered By: Maru Hayes on 51-25-0093Gunfnuovx/100 WBC (Bld)Automated basophil %.[facility] Medical CenterBasophils/100 leukocytes in Blood by Automated countOrdered By: Maru Hayes on 32-64-0317Jtvhmbbpd/100 WBC (Bld)1.2 %Normal.[facility] CenterComment on above:Performed By: #### MG, SCAN CBC, CMP #### [place] [address] USABilirubin Test strip Ql (U)Ordered By: Maru Hayes on 77-33-7477Hziahffse Ql (U)Bilirubin.total [Presence] in Urine by Test strip NegativeLakehealth Beachwood Medical CenterBilirubin Ql (U)NegativeNegative [facility] Medical CenterBilirubin.direct [Mass/volume] in Serum or PlasmaOrdered By: Maru Hayes on 37-80-9518Iqskeuvgz.direct [Mass/Vol] Bilirubin.direct [Mass/volume] in Serum or Plasma0.03-0.18FSt. Charles HospitalBilirubin.direct [Mass/Vol]0.10 mg/dL0.03-0.18FSt. Charles HospitalBilirubin.total [Mass/volume] in Serum or PlasmaOrdered By: Maru Hayes on 97-77-0534Rqeydomqv [Mass/Vol]Bilirubin.total [Mass/volume] in Serum or Plasma0.3-1.0[facility] Medical CenterBilirubin [Mass/Vol]0.5 mg/dL Normal0.3-1.0[facility] CenterComment on above:Performed By: #### MG, SCAN CBC, CMP #### [facility] [address] [place] [id number] USACT abdomen pelvis w conon 86-10-8616PR abdomen pelvis w [facility] [place] [address] [place] [address] CT Scan Report Signed Patient: Jeremie Bennett MR#: [id number] 669 : 1940 Acct:[id number] Age/Sex: 83 / M ADM Date: 09/20/24 Loc: ER Room: Type: [facility] ER Attending Dr: Copies to: [...] Gordon M.D. 09/20/2024 8:03 PM Dictation Location: [place] [address] Transcribed By: [facility] 09/20/242002 Dictated By: Rafi Gordon II, MD 09/20/241947 Signed By: 09/20/[address] [place] [address] Physician GroupCalcium [Mass/volume] in Serum or PlasmaOrdered By: Maru Hayes on 86-38-6134Ccviken [Mass/Vol]Calcium [Mass/volume] in Serum or Plasma8.6-10.3FSt. Charles HospitalCalcium [Mass/Vol]9.5 mg/dLNormal8.6-10.3FSt. Charles HospitalComment on above:Performed By: #### MG, SCAN CBC, CMP #### [facility] [address] [place] [address] USACarbon dioxide, total [Moles/volume] in Serum or Plasma Ordered By: Maru Hayes on 09-26-7630GX5 [Moles/Vol]Carbon dioxide, total [Moles/volume] in Serum or Itgszy66.0-31.0[facility] Medical CenterCO2 [Moles/Vol]26.8 mmol/DJmpnua89.0-31.0[facility] CenterComment on above:Performed By: #### MG, SCAN CBC, CMP #### [place] [address] USAChloride [Moles/volume] in Serum or PlasmaOrdered By: Maru Hayes on 01-76-8803Pqwfxgox [Moles/Vol]Chloride [Moles/volume] in Serum or Thstkj36-542IsddfhkylLakehealth Beachwood Medical CenterChloride [Moles/Vol]104 mmol/L Gyzrdq83-645EmcysnauhLakehealth Beachwood Medical CenterComment on above:Performed By: #### MG, SCAN CBC, CMP #### [place] [address] USAColor Auto (U)Ordered By: Maru Hayes on 09-20-2024 Color (U)Color of Urine by AutoYellowLakehealth Beachwood Medical CenterColor of Urine by AutoOrdered By: Maru Hayes on 71-01-2554Rcgsv (U)Light-yellowNormal YellowLakehealth Beachwood Medical CenterComment on above:Order Comment: Name Collection Type:: Clean-Voided MidstreamPerformed By: #### UA #### [place] [address] USAComplete Blood Count Auto Diffon 63-98-9847Jxyz Corpuscular HGB Conc33.3 g/hEQrymoy25.5-35.6The Count Includes The [facility] Physician GroupComment on above:Performed By: #### MG, SCAN CBC, CMP #### [place] [address] USAMonocytes/100 WBC (Bld)22.62 %High0.00-20.00The Count Includes The [facility] Physician GroupComment on above:Result Comment: For adults in ED, MDW > 20.0 may be associated with a higher risk of sepsis during the first 12 hrs of hospital admissionPerformed By: #### MG, SCAN CBC, CMP #### [place] [address] USANRBC%0.0 /100{WBC}Normal0-0.5The Count Includes [facility] Comment on above:Performed By: #### MG, SCAN CBC, CMP #### [facility] [address] [id number] USACreatinine [Mass/volume] in Serum or PlasmaOrdered By: Maru Hayes on 03-42-8323Bexapdsvlm [Mass/Vol]Creatinine [Mass/volume] in Serum or Plasma0.70-1.30[facility] CenterCreatinine [Mass/Vol] 0.70 mg/dLNormal0.70-1.30[facility] CenterComment on above: Performed By: #### MG, SCAN CBC, CMP #### [facility] [address] [id number] USAECG 12 lead ECGon 32-28-7239UHZ 12 lead ECGOHIOHEALTH [facility] [place] [address] [place] [address] Electrocardiograph Report Signed Patient: Jeremie Bennett MR#: [id number] [id number] : 1940 Acct:[id number] Age/Sex: 83 / M ADM Date: 09/20/24 Loc: ER Room: Type: [facility] ER Attending Dr: Ordering Provider: Maru [...] Abnormal ECG Confirmed by Maru Hayes MD ([id number]) on 09/20/2024 11:00:16 PM Referred By: Electronically Signed By: Maru Hayes MD Transcribed By: MUS Signed By Maru Hayes MD 12/08 2300NormHalifax Health Medical Center of [facility] Beach Physician GroupEosinophils Auto (Bld) [#/Vol] Ordered By: Maru Hayes on 68-33-0153Srtvdnpdsru (Bld) [#/Vol]Automated eosinophil count0.0-0.45[facility] CenterEosinophils [#/volume] in Blood by Automated countOrdered By: Maru Hayes on 43-52-8590Cugrzubcpyg (Bld) [#/Vol]0.3 10*3/uLNormal0.0-0.45[facility] CenterComment on above:Performed By: #### MG, SCAN CBC, CMP #### [facility] [address] [place] [address] USAEosinophils/100 WBC Auto (Bld)Ordered By: Maru Hayes on 25-27-4292Gjaayiazndc/100 WBC (Bld)Automated eosinophil %.[facility] CenterEosinophils/100 leukocytes in Blood by Automated countOrdered By: Maru Hayes on 13-85-7902Jwzvjlfndlu/100 WBC (Bld)2.5 %Normal.[facility] CenterComment on above:Performed By: #### MG, SCAN CBC, CMP #### [facility] [address] [place], [place] [id number] USAErythrocyte distribution width Auto (RBC) [Ratio]Ordered By: Maru Hayes on 32-48-6559Uqguxiklddh distribution width (RBC) [Ratio] Erythrocyte distribution width [Ratio] by Automated xoglzCltg51.0-14.8[facility] CenterErythrocyte distribution width [Ratio] by Automated count Ordered By: Maru Hayes on 31-37-0284Ezsuclhathj distribution width (RBC) [Ratio]15.9 %High12.0-14.8[facility] CenterComment on above: Performed By: #### MG, SCAN CBC, CMP #### [facility] [address] [place], [place] [id number] USAErythrocytes [#/volume] in Blood by Automated countOrdered By: Maru Hayes on 21-90-2876GQB (Bld) [#/Vol]3.85 10*6/uLLow3.90-5.60 [facility] CenterComment on above:Performed By: #### MG, SCAN CBC, CMP #### [facility] [address] [id number] USAGlobulin Calc (S) [Mass/Vol]Ordered By: Maru Hayes on 18-96-0837Bxxypymu (S) [Mass/Vol]Serum globulin measurement by calculation (mass/volume)[facility] CenterGlucose [Mass/volume] in Serum or PlasmaOrdered By: Maru Hayes on 13-77-3791Ejxmymt [Mass/Vol]Glucose [Mass/volume] in Serum or FckcrhKgqs15-347Ajzuymtrm[address] Comment on above:ADA recommended reference rangeRandom Glucose Reference Range is dependent on time and content of last meal. Glucose of more than 200 mg/dL in a nonstressed, ambulatory subject supports the diagnosisof Diabetes Mellitus. Glucose [Mass/Vol]105 mg/jYBbhl48-417Tvilisppw04 Gordon StreetComment on above:ADA recommended reference rangeRandom Glucose Reference [...] By: #### MG, SCAN CBC, CMP #### [facility] [address] [place], [place] [id number] USAGlucose [Mass/volume] in Urine by Test stripOrdered By: Maru Hayes on 25-91-9147Xcuxtio Test strip (U) [Mass/Vol]Glucose [Mass/volume] in Urine by Test stripNoCleveland Clinic Marymount Hospital Glucose Test strip (U) [Mass/Vol]Normal mg/dLNoCleveland Clinic Marymount HospitalHematocrit Auto (Bld) [Volume fraction]Ordered By: Maru Hayes on 80-02-1883Ogetzidbql (Bld) [Volume fraction]Hematocrit [Volume Fraction] of Blood by Automated wylakZfg52.8-50.0[facility] CenterHematocrit [Volume Fraction] of Blood by Automated countOrdered By: Maru Hayes on 27-38-7300Cadbzwuvmk (Bld) [Volume fraction]35.3 %Low38.8-50.0[facility] CenterComment on above:Performed By: #### MG, SCAN CBC, CMP #### [facility] [address] [place] [address] USAHemoglobin Test strip Ql (U)Ordered By: Maru Hayes on 40-81-3801Jjlbzqztdy Ql (U)Hemoglobin [Presence] in Urine by Test stripNegative [facility] CenterHemoglobin Ql (U)NegativeNegativeLakehealth Beachwood Medical CenterHemoglobin [Mass/volume] in BloodOrdered By: Maru Hayes on 91-14-4879Dzsfjlgngb (Bld) [Mass/Vol]Hemoglobin [Mass/volume] in UcsocRzo22.0-17.0[facility] CenterHemoglobin (Bld) [Mass/Vol] 11.8 g/dLLow13.0-17.0[facility] CenterComment on above:Performed By: #### MG, SCAN CBC, CMP #### [facility] [address] [place] [address] USAHepatic Panelon 74-88-8685Tszzqoy [Mass/Vol]3.5 g/dLNormal 3.5-5.7The Count Includes The [facility] Physician GroupComment on above:Performed By: #### MG, SCAN CBC, CMP #### [place] [address] USABilirubin,Indirect0.4 mg/dLNormalThe Count Includes The [facility] Physician [facility] County HospitalComment on above:Performed By: #### MG, SCAN CBC, CMP #### [place] [address] USABilirubin.indirect [Mass/Vol]0.10 mg/dLNormal0.03-0.18The Count Includes The [facility] Physician GroupComment on above:Performed By: #### MG, SCAN CBC, CMP #### [facility] [address] [place] [address] USAKetones Test strip Ql (U)Ordered By: Maru Hayes on 65-66-7186Nwiyblo Ql (U)Ketones [Presence] in Urine by Test stripNegative [facility] CenterKetones [Presence] in Urine by Test strip Ordered By: Maru Hayes on 76-46-2883Jhnikvq Ql (U)NegativeNormalNegative [facility] CenterComment on above:Order Comment: Name Collection Type:: Clean-Voided MidstreamPerformed By: #### UA #### [facility] [address] [place] [address] USALeukocyte esterase [Presence] in Urine by Test strip Ordered By: Maru Hayes on 64-80-7110Sldpxvdqr esterase Test strip Ql (U) Leukocyte esterase [Presence] in Urine by Test stripNegativeLakehealth Beachwood Medical CenterLeukocyte esterase Test strip Ql (U)NegativeNormalNegative [facility] CenterComment on above:Order Comment: Name Collection Type:: Clean-Voided MidstreamPerformed By: #### UA #### [facility] [address] [place] [address] USALeukocytes [#/volume] corrected for nucleated erythrocytes in Blood by Automated counOrdered By: Maru Hayes on 63-02-2041UMS corrected for nucl RBC Auto (Bld) [#/Vol]Leukocytes [#/volume] corrected for nucleated erythrocytes in Blood by Automated counHigh4.1-10.5FSt. Charles HospitalWBC corrected for nucl RBC Auto (Bld) [#/Vol]11.2 10*3/uLHigh4.1-10.5 [facility] CenterLeukocytes [#/volume] in Blood by Automated countOrdered By: Maru Hayes on 56-35-9526BYZ (Bld) [#/Vol]11.2 10*3/uLHigh 4.1-10.5FSt. Charles HospitalComment on above:Performed By: #### MG, SCAN CBC, CMP #### [facility] [address] [place] [address] USALipase [Enzymatic activity/volume] in Serum or Plasma Ordered By: Maru Hayes on 86-76-0185Iscozt [Catalytic activity/Vol]Lipase [Enzymatic activity/volume] in Serum or Wovlei96.0-82.0[facility] CenterLipase [Catalytic activity/Vol]34.0 U/GOxhdmy36.0-82.0[facility] CenterComment on above:Result Comment: PERFORMED BY: [address] [id number] PATHOLOGIST COMMERCIAL CREDIT ANALYST HEBER SHANNON M.D.Performed By: #### MG, SCAN CBC, CMP #### [facility] [address] [place], [place] [phone] USALymphocytes Auto (Bld) [#/Vol]Ordered By: Maru Hayes on 05-53-1318Amxkzuxghta (Bld) [#/Vol]Lymphocytes [#/volume] in Blood by Automated count1.00-4.8[facility] Medical CenterLymphocytes [#/volume] in Blood by Automated countOrdered By: Maru Hayes on 91-53-3236Ayjfvykrmku (Bld) [#/Vol]2.8 10*3/uLNormal1.00-4.8[facility] CenterComment on above:Performed By: #### MG, SCAN CBC, CMP #### [facility] [address] [place], [place] [phone] USALymphocytes/100 WBC Auto (Bld)Ordered By: Maru Hayes on 95-31-4325Bjfplrrrlba/100 WBC (Bld)Lymphocytes/100 leukocytes in Blood by Automated count.[facility] CenterLymphocytes/100 leukocytes in Blood by Automated countOrdered By: Maru Hayes on 40-39-9487Ojgawymqwnn/100 WBC (Bld)24.8 %Normal.[facility] CenterComment on above: Performed By: #### MG, SCAN CBC, CMP #### [facility] [address] [place], [place] [phone] [facility] Auto (RBC) [Entitic mass]Ordered By: Maru Hayes on 62-66-2972YCH (RBC) [Entitic mass]MCH [Entitic mass] by Automated count27.5-35.2 [facility] [Entitic mass] by Automated countOrdered By: Maru Hayes on 24-25-2755KHC (RBC) [Entitic mass]30.5 ylAuwoza11.5-35.2 [facility] CenterComment on above:Performed By: #### MG, SCAN CBC, CMP #### [facility] [address] [place] [address] USAHC Auto (RBC) [Mass/Vol]Ordered By: Maru Hayes on 78-50-3621EYOK (RBC) [Mass/Vol]MCHC [Mass/volume] by Automated count32.5-35.6 [facility] CenterMCHC (RBC) [Mass/Vol]33.3 g/dL32.5-35.6 [facility] CenterMCV Auto (RBC) [Entitic vol]Ordered By: Maru Hayes on 32-17-9781HJU (RBC) [Entitic vol]MCV [Entitic volume] by Automated count83.5-101[facility] CenterMCV [Entitic volume] by Automated countOrdered By: Maru Hayes on 58-74-0551YUX (RBC) [Entitic vol]91.7 fL Tcufhp81.5-[address] [place], [place] [address]Comment on above:Performed By: #### MG, SCAN CBC, CMP #### [facility] [address] [place] [address] USAMonocyte distribution width [Entitic volume] in Blood by AutomatedOrdered By: Maru Hayes on 31-40-3371Ykicootw distribution width Auto (Bld) [Entitic vol]Monocyte distribution width [Entitic volume] in Blood by AutomatedHigh0.00-20.00[facility] CenterComment on above:For adults in ED, MDW > 20.0 may be associated with a higher risk of sepsis during the first 12 hrs of hospital admissionMonocyte distribution width Auto (Bld) [Entitic vol]22.62 %High0.00-20.00[facility] CenterComment on above:For adults in ED, MDW > 20.0 may be associated with a higher risk of sepsis during the first 12 hrs of hospital admissionMonocytes Auto (Bld) [#/Vol] Ordered By: Maru Hayes on 72-54-4936Nurhydcrf (Bld) [#/Vol]Automated blood monocyte count0.0-0.8[facility] CenterMonocytes [#/volume] in Blood by Automated countOrdered By: Maru Hayes on 37-87-9607Nplmxebgs (Bld) [#/Vol]0.8 10*3/uLNormal0.0-0.8[facility] CenterComment on above:Performed By: #### MG, SCAN CBC, CMP #### [facility] [address] [place] [address] USAMonocytes/100 WBC Auto (Bld)Ordered By: Maru Hayes on 44-98-8206Wlealwiqi/100 WBC (Bld)Automated monocyte %.[facility] CenterMonocytes/100 leukocytes in Blood by Automated countOrdered By: Maru Hayes on 25-78-4228Osldzrflx/100 WBC (Bld)7.2 %Normal.[facility] CenterComment on above:Performed By: #### MG, SCAN CBC, CMP #### [facility] [address] [place] [address] USANeutrophils Auto (Bld) [#/Vol]Ordered By: Maru Hayes on 55-22-3905Pehkcijengq (Bld) [#/Vol]Neutrophils [#/volume] in Blood by Automated count1.8-7.7FSt. Charles HospitalNeutrophils [#/volume] in Blood by Automated countOrdered By: Maru Hayes on 93-01-6140Tdwjsvbavkb (Bld) [#/Vol]7.2 10*3/uLNormal1.8-7.7FSt. Charles HospitalComment on above:Performed By: #### MG, SCAN CBC, CMP #### [facility] [address] [place] [address] USANeutrophils/100 WBC Auto (Bld)Ordered By: Maru Hayes on 31-96-1884Mdeelzmmeza/100 WBC (Bld)Automated neutrophil %.[facility] CenterNeutrophils/100 leukocytes in Blood by Automated countOrdered By: Maru Hayes on 10-52-0965Rtcajkcljbi/100 WBC (Bld)64.3 %Normal.[facility] CenterComment on above:Performed By: #### MG, SCAN CBC, CMP #### [facility] [address] [id number] USANitrite Test strip Ql (U)Ordered By: Maru Hayes on 79-70-1477Qidellk Ql (U)Nitrite [Presence] in Urine by Test stripNegative [facility] CenterNitrite Ql (U)NegativeNegativeLakehealth Beachwood Medical CenterNo Panel InformationOrdered By: Maru Hayes on 55-15-5627Tjaphvcdx GFR (CKD-EPI)> 60.0 mL/MinLakehealth Beachwood Medical Center Pharmacy Creatinine Clearance (Chem59.79[facility] Nucleated erythrocytes [Presence] in Blood by Automated countOrdered By: Maru Hayes on 07-62-9791Rffyegnkh RBC Auto Ql (Bld)Nucleated erythrocytes [Presence] in Blood by Automated count0-0.5FSt. Charles Hospital Nucleated RBC Auto Ql (Bld)0.0 /100{WBC}0-0.5FSt. Charles Hospital Platelet mean volume Auto (Bld) [Entitic vol]Ordered By: Maru Hayes on 29-11-1817Mawumayi mean volume (Bld) [Entitic vol]Platelet mean volume [Entitic volume] in Blood by Automated count6.6-10.1FSt. Charles Hospital Platelet mean volume [Entitic volume] in Blood by Automated countOrdered By: Maru Hayes on 13-53-9119Tndjrsax mean volume (Bld) [Entitic vol]8.3 fLNormal 6.6-10.1FSt. Charles HospitalComment on above:Performed By: #### MG, SCAN CBC, CMP #### [facility] [address] [id number] USAPlatelets Auto (Bld) [#/Vol]Ordered By: Maru Hayes on 87-62-4615Bcyrwvazd (Bld) [#/Vol]Platelets [#/volume] in Blood by Automated ehjsd975-549EoecvjbtmLakehealth Beachwood Medical CenterPlatelets [#/volume] in Blood by Automated countOrdered By: Maru Hayes on 08-79-7881Ukeugvsgk (Bld) [#/Vol] 226 10*3/lVUvhyqc295-529Soadimb[address] [place], [place] [address]Comment on above: Performed By: #### MG, SCAN CBC, CMP #### [facility] [address] [id number] [facility] 44-44-5264FbhhewlsvlVeterans Affairs Pittsburgh Healthcare System Case Information Case Priority: None Programs: -- Referral Source: [employer]oc[employer] Referral Reason: Care coordination Case Type: Transition [...] to opioid therapy Coronary artery disease involving [place] coronary artery of [place] heart without angina pectoris Diabetic autonomic neuropathy [...] patch(es), Topical, q72hr fluticasone Nasal 0.05 mg/inh [facility], See Instructions furosemide 20 mg Tab, 20 [...] OV 09/14, buthe has not heard from [facility], a message sent to clinical for f/u. Patient denies any further questions or concerns. Communication Events Date: September 20, 2024 Method: Phone call Type: Outbound Duration (min): 3 Outcome: Case discussion Contact Type: Patient Contact Name: B (more content not included)...[facility] CenterPotassium [Moles/volume] in Serum or PlasmaOrdered By: Maru Hayes on 29-01-5230Clukccjrz [Moles/Vol]Potassium [Moles/volume] in Serum or Plasma3.5-5.1FSt. Charles Hospital Potassium [Moles/Vol]4.0 mmol/LNormal3.5-5.1FSt. Charles Hospital Comment on above:Performed By: #### MG, SCAN CBC, CMP #### [address] [id number] USAProtein Test strip (U) [Mass/Vol]Ordered By: Maru Hayes on 33-84-9857Jrgpuum (U) [Mass/Vol]Protein [Mass/volume] in Urine by Test stripNegativeLakehealth Beachwood Medical CenterProtein (U) [Mass/Vol] NegativeNegativeLakehealth Beachwood Medical CenterProtein [Mass/volume] in Serum or PlasmaOrdered By: Maru Hayes on 96-99-6582Vzvzklk [Mass/Vol]Protein [Mass/volume] in Serum or Plasma6.4-8.9[facility] Medical CenterProtein [Mass/Vol]6.4 g/dLNormal6.4-8.9[facility] CenterComment on above:Performed By: #### MG, SCAN CBC, CMP #### [address] [id number] USARBC Auto (Bld) [#/Vol]Ordered By: Maru Hayes on 91-74-2594XYB (Bld) [#/Vol]Erythrocytes [#/volume] in Blood by Automated count Low3.90-5.60[facility] Jewish Hospitalerum globulin measurement by calculation (mass/volume)Ordered By: Maru Hayes on 51-25-3617Yqklurob (S) [Mass/Vol]2.9 g/dLNormalLakehealth Beachwood Medical CenterComment on above: Performed By: #### MG, SCAN CBC, CMP #### [facility] [address] [place] [address] USASerum or plasma albumin/globulin mass ratioOrdered By: Maru Hayes on 59-17-5670Fmhtvjg/Globulin [Mass ratio]Serum or plasma albumin/globulin mass ratioLakehealth Beachwood Medical CenterAlbumin/Globulin [Mass ratio]1.2 {ratio}NormalLakehealth Beachwood Medical CenterComment on above: Performed By: #### MG, SCAN CBC, CMP #### [facility] [address] [place] [address] USASerum or plasma anion gap determinationOrdered By: Maru Hayes on 44-94-0149Envue gap [Moles/Vol]Serum or plasma anion gap determination6.0-15.0[facility] Medical CenterAnion gap [Moles/Vol]10.2 mmol/LNormal6.0-15.0[facility] CenterComment on above:Performed By: #### MG, SCAN CBC, CMP #### [facility] [address] [place] [address] USASerum or plasma non-glucuronidated bilirubin measurement (mass/volume)Ordered By: Maru Hayes on 90-33-0863Yjbzauefg.indirect [Mass/Vol]Serum or plasma non-glucuronidated bilirubin measurement (mass/volume) [facility] CenterBilirubin.indirect [Mass/Vol]0.4 mg/dLMercy Health – The Jewish Hospitalodium [Moles/volume] in Serum or PlasmaOrdered By: Maru Hayes on 04-74-7224Ijaftv [Moles/Vol]Sodium [Moles/volume] in Serum or Vgokto056-750DsfurrxtiMercy Health – The Jewish Hospitalodium [Moles/Vol]137 mmol/LNormal 136-145[facility] CenterComment on above:Performed By: #### MG, SCAN CBC, CMP #### [facility] [address] [place] [address] USASpecific gravity Test strip (U) [Rel density]Ordered By: Maru Hayes on 58-78-1606Eeeeksgt gravity (U) [Rel density]Specific gravity of Urine by Test stripHigh1.001-1.030[facility] Jewish Hospitalpecific gravity (U) [Rel density]1.524Fmgl4.001-1.030[facility] Troponin I High Sensitivityon 18-99-0529Iyytmogi I High Lxxzbokccza3Pavnig2-65 The Count Includes The [facility] Physician GroupComment on above:Result Comment: The Troponin units of report have been changed to meet the Chest Pain Accreditation requirement, element EC5.M1l2. Troponin units are changed from pg/ml to ng/L. Also, the decimal is removed and results are in whole numbers. PERFORMED BY: [place] [address] PATHOLOGIST COMMERCIAL CREDIT ANALYST HEBER SHANNON M.D.Performed By: #### HS TROP #### [facility] [address] [place] [address] USATroponin I.cardiac [Mass/volume] in Serum or Plasma by Detection limit <= 0.01 ng/Ordered By: Maru Hayes on 35-34-8956Wgexjnnf I.cardiac DL <= 0.01 ng/mL [Mass/Vol]Troponin I.cardiac [Mass/volume] in Serum or Plasma by Detection limit <= 0.01 ng/0-20[facility] Comment on above:The Troponin units of report have been changed to meet the Chest Pain Accreditation requirement, element EC5.M1l2. Troponin units are changed from pg/ml to ng/L. Also, the decimal is removed and results are in whole numbers.Troponin I.cardiac [Mass/volume] in Serum or Plasma by Detection limit <= 0.01 ng/mLOrdered By: Maru Hayes on 39-92-0023Nsfnxxud I.cardiac DL <= 0.01 ng/mL [Mass/Vol]7 ng/L0-20[facility] CenterComment on above:The Troponin units of report have been changed to meet the Chest Pain Accreditation requirement, element EC5.M1l2. Troponin units are changed from pg/ml to ng/L. Also, the decimal is removed and results are in whole numbers. Urea nitrogen [Mass/volume] in Serum or PlasmaOrdered By: Maru Hayes on 66-35-0027Tvot nitrogen [Mass/Vol]Urea nitrogen [Mass/volume] in Serum or Plasma -[facility] Medical CenterUrea nitrogen [Mass/Vol]20 mg/dLNormal12-08 [facility] CenterComment on above:Performed By: #### MG, SCAN CBC, CMP #### [facility] [address] [place] [address] USAUrinalysison 53-43-9265Ldqmdqvlv,UrineNegativeNormal NegativeThe Count Includes The [facility] Physician GroupComment on above:Order Comment: Name Collection Type:: Clean-Voided MidstreamPerformed By: #### UA #### [place] [address] USAGlucose Ql (U)NormalNormalNormalThe Count Includes The [facility] Hospital Physician GroupComment on above:Order Comment: Name Collection Type:: Clean-Voided MidstreamPerformed By: #### UA #### [place] [address] USANitrite,UrineNegativeNormalNegativeThe Count Includes The [facility] Hospital Physician GroupComment on above:Order Comment: Name Collection Type:: Clean-Voided MidstreamPerformed By: #### UA #### [place] [id number] USAOccult Blood,UrineNegativeNormalNegativeThe Count Includes The [facility] Hospital Physician GroupComment on above:Order Comment: Name Collection Type:: Clean- Voided MidstreamResult Comment: PERFORMED BY: [place] [address] PATHOLOGIST COMMERCIAL CREDIT ANALYST HEBER SHANNON M.D.Performed By: #### UA #### [place] [address] USAProtein,UrineNegativeNormalNegativeThe Count Includes The [facility] Hospital Physician GroupComment on above:Order Comment: Name Collection Type:: Clean-Voided MidstreamPerformed By: #### UA #### [facility] [address] [place] [address] USASpecificy [place],Urine1.397Wuoq0.001-1.030The Count Includes The [facility] Physician GroupComment on above:Order Comment: Name Collection Type:: Clean- Voided MidstreamPerformed By: #### UA #### [facility] [address] [place] [address] USAUrobilinogen,UrineNormalNormalNormalThe Count Includes The [facility] Physician GroupComment on above:Order Comment: Name Collection Type:: Clean- Voided MidstreamPerformed By: #### UA #### [place] [id number] USAUrobilinogen Test strip (U) [Mass/Vol]Ordered By: Maru Hayes on 60-51-4220Hwtvdujyylhz (U) [Mass/Vol]Urobilinogen [Mass/volume] in Urine by Test stripNoCleveland Clinic Marymount HospitalUrobilinogen (U) [Mass/Vol]Normal mg/dLNoCleveland Clinic Marymount HospitalWBC Auto (Bld) [#/Vol]Ordered By: Maru Hayes on 99-01-7004OJI (Bld) [#/Vol]Leukocytes [#/volume] in Blood by Automated countHigh4.1-10.5FSt. Charles HospitalpH Test strip (U)Ordered By: Maru Hayes on 82-81-2680rE (U)pH of Urine by Test strip5.0-9.0[facility] Medical CenterpH of Urine by Test strip Ordered By: Maru Hayes on 96-01-2156tK (U)5.0 [pH]Normal5.0-9.0[facility] CenterComment on above:Order Comment: Name Collection Type:: Clean-Voided MidstreamPerformed By: #### UA #### [facility] [address] [place] [address] USAAmbulatory Visit Summaryon 70-24-3629Kccixxdgtx Visit SummaryAmbulatory Visit Summary JEREMIE BENNETT :1940 [...] Film) fluticasone nasal (fluticasone Nasal 0.05 mg/inh [facility]) furosemide (furosemide 20 mg Tab) irbesartan (irbesartan [...] PM EDT With: Demetrius Cooper MD Where: [address] [address]- Wednesday 2:30 PM EDT With: Where: [address] [address]- Wednesday 3:20 PM EDT With: Demetrius Cooper MD Where: [address] [address]- Medications What How Much When Instructions Unchanged [...] fluticasone nasal (fluticasone Nasal 0.05 mg/ inh [facility]) See instructions USE 1 SPRAY IN BOTH [...] Cancer associated pain Cervic (more content not included)...[facility] Medicine Office/Clinic Noteon 58-67-0613Olpmtv Medicine Office/Clinic NoteFaedward p. [facility] Medicine Office/Clinic Note Chief Complaint ACute Visit [...] to opioid therapy Coronary artery disease involving [place] coronary artery of [place] heart without angina pectoris Diabetic autonomic neuropathy [...] procedure, Cataract, Cholecystectomy,Co (more content not included)... [facility] CenterComment on above:Result Comment: Electronically Signed By: Demetrius Cooper MD\.br\Date and Time Signed: 09/14/24 07:51 EDT [facility] 60-10-6988MlkpodcpmoCaroMont [facility] CiiNOW Case Information Case Priority: None Programs: -- Referral Source: Teacher Vocational Training Referral Reason: Care coordination Case Type: Transition [...] to opioid therapy Coronary artery disease involving [place] coronary artery of [place] heart without angina pectoris Diabetic autonomic neuropathy [...] patch(es), Topical, q72hr fluticasone Nasal 0.05 mg/inh [facility], See Instructions furosemide 20 mg Tab, 20 [...] mg= 1 tab(s), Oral, Daily Potassium Chloride (Qvo-Spif-Pgt M20) 20 mEq oral tablet, extended release [...] states magic peggy (more content not included)...[facility] CenterC Urineon 24-08-9330Bpjrbzgw identified Cx Nom (U)Microbiology PROCEDURE: Urine Culture [R1] SOURCE: U Random BODY SITE: COLLECTED DATE/TIME: 08/30/2024 10:11 EDT RECEIVED DATE/TIME: 08/30/2024 18:09 EDT START DATE/TIME: 08/30/2024 18:09 EDT FREE TEXT SOURCE: Yajaira Dunn Jodi L FINAL REPORTS Final Report [] Verified Date/Time: 09/01/2024 10:22 EDT 200 cfu/ml Mixed skin contaminants Performing Locations R1: This test was performed at: [facility], [address] [place] [address], [facility] , , QbveazGnczwwCincinnati Children's Hospital Medical CenterComment on above:Performed By: #### [id number] #### [facility] [address] [place], [place] [address]Ambulatory Visit Summaryon 87-48-8514Dyyhrporsh Visit Summary Ambulatory Visit Summary JEREMIE BENNETT [...] Film) fluticasone nasal (fluticasone Nasal 0.05 mg/inh [facility]) furosemide (furosemide 20 mg Tab) irbesartan (irbesartan [...] mL oral solution) potassium chloride (Potassium Chloride (Ogy-Bpag-Tyi M20) 20 mEq oral tablet, extended release) [...] Appointments Wednesday 2:30 PM EDT With: Where: [address] [address]- Wednesday 3:20 PM EDT With: Allison CASON, Demetrius Rosa Where: [address] Medications What How Much When Instructions Unchanged [...] fluticasone nasal (fluticasone Nasal 0.05 mg/ inh [facility]) See instructions USE 1 SPRAY IN BOTH [...] DAILY Unchanged ondansetron (onda (more content not included)...[facility] Medicine Office/Clinic Noteon 34-56-7811Niiyij Medicine Office/Clinic NoteFaedward p. [facility] Medicine Office/Clinic Note Chief Complaint Acute Visit [...] Urnls Dip Stick Auto w/o Microscopy POC 83814 2. Urinary hesitancy (R39.11: Hesitancy of micturition) [...] to opioid therapy Coronary artery disease involving [place] coronary artery of [place] heart without angina pectoris Diabetic autonomic neuropathy [...] patch(es), Topical, q72hr fluticasone Nasal 0.05 mg/inh [facility], See Instructions furosemide 20 mg Tab, 20 [...] Daily Potassium Chloride (Eq (more content not included)...[facility] Medical CenterComment on above:Result Comment: Electronically Signed By: Yajaira Dunn\.marco a\Date and Time Signed: 08/30/24 10:45 [facility] Medicine Office/Clinic Noteon 31-34-6405Txcazd Medicine Office/Clinic NoteFaedward p. [facility] Medicine Office/Clinic Note Chief Complaint TCM follow up The patient presents with concerns related to chemotherapy and radiation treatment for oropharyngeal carcinoma. HPI Staff Pt presents today for TCM follow up Hospital: [facility] Visit date: 08/19/24 Symptoms the patient presented [...] <130 mm Hg (Most Recent) 3074F TCM [facility] 7 day disch [id number] 2. Aspiration pneumonia (J69.0: Pneumonitis due to inhalation of food and vomit) Patient improved after antibiotic treatment for aspiration pneumonia. Monitor respiratory status and nutritional challenges affecting swallowing. Ordered: Cardiac Rehab - Ambulatory Referral TCM [facility] 7 day disch [id number] 3. 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 Plan imaging for therapy assessment within three months. Focus on resolving sore throat impacting nutrition. Ordered: Cardiac Rehab - Ambulatory Referral TCM [facility] 7 day disch 93555 4. 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 Schedule appropriate follow- up tests to monitoroncologic treatment outcomes. Ordered: Cardiac Rehab - Ambulatory Referral TCM [facility] 7 day disch 63791 5. Immunosuppression (D84.9: Immunodeficiency, unspecified) Continue to see oncology Ordered: Cardiac Rehab - Ambulatory Referral TCM [facility] 7 day disch 72028 6. 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 Evaluate non-opioid pain relief methods if feasible. Ordered: TCM [facility] 7 day disch 77783 7. Nausea (R11.0: Nausea) NO issues at this time. Ordered: TCM [facility] 7 day disch [phone] 8. BMI 27.0-27.9,adult (Z68.27: Body mass index [BMI] 27.0-27.9, adult) BMI education adde (more content not included)...[facility] Medical CenterComment on above:Result Comment: Electronically Signed By: Demetrius Cooper MD\.br\Date and Time Signed: 08/24/24 09:00 EDTPre-Visit Planningon 08-24-2024 Pre-Visit PlanningPre-Visit Planning From: Bobbi Hall To: Demetrius Cooper MD; Sent: 08/23/2024 16:27:25 EDT Subject: Pre-Visit Planning Due Date/Time: 08/23/2024 16:27:00 EDT Caller Name: BENNETTJEREMIE; Caller Number: H , M Pr Dr. Cooper. During a pre-visit planning chart [...] feel free to contact me at extension [phone]. Thank you! Bobbi Hall LPN Clinical [place] [address] Extension: [phone] [email or web address] From: Demetrius Cooper MD To: Bobbi Hall; Sent: 08/24/2024 11:34:18 EDT Subject: RE: Pre-Visit Planning Caller Name: BENNETT, JEREMIE Annabelle; Caller Number: Jane , [facility] 08-22-2024 [facility] Case Information Case Priority: None Programs: -- Referral Source: Teacher Vocational Training Referral Reason: Care coordination Case Type: Transition Care Management Risk Score: -- Case Status: Enrolled (August 22, 2024) Date Assigned: August 22, 2024 Assigned By: Galileo Tucker Date Enrolled: August 22, 2024 Assigned Primary Personnel: Galileo Tucker Assigned Secondary Personnel: -- Case Physician: Demetrius Cooper MD Problems Ongoing Bloating BMI 29.0-29.9,adult Cervical lymphadenopathy Cervical spondylosis Chronic GERD Coronary artery disease involving [place] coronary artery of [place] heart without angina pectoris Diabetic autonomic neuropathy [...] patch(es), Topical, q72hr fluticasone Nasal 0.05 mg/inh [facility], See Instructions furosemide 20 mg Tab, 20 [...] Care Plan Progress Note Admit Date: 08/20/24 [facility] Date of Discharge: 08/21/24 Follow-up appointment scheduled? yes, Dr. Cooper [place] f/u 08/24/24 at 0745 Did you understand [...] difficult to swallow Ar (more content not included)...[facility] Medical CenterAlanine aminotransferase [Enzymatic activity/volume] in Serum or PlasmaOrdered By: Jaiden Nance on 54-97-4086XKX [Catalytic activity/Vol]Alanine aminotransferase [Enzymatic activity/volume] in Serum or Plasma7-52[facility] CenterAlbumin [Mass/volume] in Serum or Plasma by Bromocresol green (BCG) dye binding methoOrdered By: Jaiden Nance on 49-67-5621Nxlmtqh BCG dye [Mass/Vol] Albumin [Mass/volume] in Serum or Plasma by Bromocresol green (BCG) dye binding methoLow3.5-5.7FSt. Charles HospitalAlkaline phosphatase [Enzymatic activity/volume] in Serum or PlasmaOrdered By: Jaiden Nance on 79-82-7387BEE [Catalytic activity/Vol]Alkaline phosphatase [Enzymatic activity/volume] in Serum or Ohdmkg08-549MklsldwvyLakehealth Beachwood Medical CenterAspartate aminotransferase [Enzymatic activity/volume] in Serum or PlasmaOrdered By: Jaiden Nance on 99-94-4900PCA [Catalytic activity/Vol]Aspartate aminotransferase [Enzymatic activity/volume] in Serum or Cdnqrm40-30HmflewqfcLakehealth Beachwood Medical Center Basophils Auto (Bld) [#/Vol]Ordered By: Jaiden Nance on 17-11-1815Ngjdbfnvs (Bld) [#/Vol]Automated basophil count0.0-0.2FSt. Charles Hospital Basophils/100 WBC Auto (Bld)Ordered By: Jaiden Nance on 99-18-6961Kizkbzzlx/100 WBC (Bld)Automated basophil %.[facility] Medical CenterBilirubin.total [Mass/volume] in Serum or PlasmaOrdered By: Jaiden Nance on 33-14-1392Hprdgkuep [Mass/Vol]Bilirubin.total [Mass/volume] in Serum or Plasma0.3-1.0[facility] Medical CenterCT chest wo conon 26-41-6099[place] chest wo [facility] [address] [place] [address] CT Scan Report Signed Patient: Jeremie Bennett MR#: [id number] : 1940 Acct:[id number] Age/Sex: 83 / M ADM Date: 08/20/24 Loc: Room: [address] [place] [address] Type: ADM IN Attending Dr: Jaiden Nance [...] Christian Melton M.D.08/21/2024 5:58 AM Dictation Location: [place] [address] Transcribed By: [facility] 08/21/24 0558 Dictated By: Christian Melton DO 08/21/24 0555 Signed By: 08/21/[address] [facility] [address] Phys[facility] GroupCalcium [Mass/volume] in Serum or PlasmaOrdered By: Jaiden Nance on 99-54-6435Cylyrku [Mass/Vol]Calcium [Mass/volume] in Serum or PlasmaLow8.6-10.3FSt. Charles Hospital Carbon dioxide, total [Moles/volume] in Serum or PlasmaOrdered By: Jaiden Nance on 47-53-6113SB2 [Moles/Vol]Carbon dioxide, total [Moles/volume] in Serum or Ylrkxm32.0-31.0[facility] Medical CenterChloride [Moles/volume] in Serum or PlasmaOrdered By: Jaiden Nance on 52-00-5122Kmisyfgk [Moles/Vol]Chloride [Moles/volume] in Serum or LlwlsmMngz63-137MqatahjkoLakehealth Beachwood Medical Center Complete Blood Count Auto Diffon 64-00-5984Myxoevneq (Bld) [#/Vol]0.0 10*3/uL Normal0.0-0.2The Count Includes The [facility] Physician GroupComment on above:Result Comment: PERFORMED BY: [place] [address] PATHOLOGIST COMMERCIAL CREDIT ANALYST HEBER SHANNON M.D.Performed By: #### UA #### [place] [address] USABasophils/100 WBC (Bld)0.6 %Normal.The Count Includes The [facility] Physician GroupComment on above:Performed By: #### UA #### [place] [address] USAEosinophils (Bld) [#/Vol]0.1 10*3/uLNormal0.0-0.45The Count Includes The [facility] Physician GroupComment on above:Performed By: #### UA #### [place] [address] USAEosinophils/100 WBC (Bld)1.0 %Normal.The Count Includes The [facility] Physician GroupComment on above:Performed By: #### UA #### [place] [address] USAErythrocyte distribution width (RBC) [Ratio]14.8 %Normal 12.0-14.8The Count Includes The [facility] Physician GroupComment on above:Performed By: #### UA #### [facility] [address] [place] [address] USAHematocrit (Bld) [Volume fraction]30.5 %Low38.8-50.0The Count Includes The [facility] Physician GroupComment on above:Performed By: #### UA #### [place] [address] USAHemoglobin (Bld) [Mass/Vol]10.4 g/dLLow13.0-17.0The Count Includes The [facility] Physician GroupComment on above:Performed By: #### UA #### [place] [address] USALymphocytes (Bld) [#/Vol]0.6 10*3/uLLow1.00-4.8The Count Includes The [facility] Physician GroupComment on above:Performed By: #### UA #### [place] [address] USALymphocytes/100 WBC (Bld)9.0 %Normal.The Count Includes The [facility] Physician GroupComment on above:Performed By: #### UA #### [place] [address] USAMCH (RBC) [Entitic mass]31.3 ceKormol70.5-35.2The Count Includes The [facility] Physician GroupComment on above:Performed By: #### UA #### [place] [address] USAMCV (RBC) [Entitic vol]91.6 tASubwsi97.5-101The Count Includes The [facility] Physician GroupComment on above:Performed By: #### UA #### [place] [address] USAMean Corpuscular HGB Conc34.2 g/qDKmczaw74.5-35.6The Count Includes The [facility] Physician GroupComment on above:Performed By: #### UA #### [place] [id number] USAMonocytes (Bld) [#/Vol]0.8 10*3/uLNormal0.0-0.8The Count Includes The [facility] Physician GroupComment on above:Performed By: #### UA #### [facility] [address] [place] [address] USAMonocytes/100 WBC (Bld)13.6 %Normal.The Count Includes The [facility] Physician GroupComment on above:Performed By: #### UA #### [facility] [address] [place] [address] USANeutrophils (Bld) [#/Vol]4.7 10*3/uLNormal1.8-7.7The Count Includes The [facility] Physician GroupComment on above:Performed By: #### UA #### [facility] [address] [place] [address] USANeutrophils/100 WBC (Bld)75.8 %Normal.The Count Includes The [facility] Physician GroupComment on above:Performed By: #### UA #### [facility] [address] [place] [address] USANRBC%0.1 /100{WBC}Normal0-0.5The Count Includes [facility] Comment on above:Performed By: #### UA #### [facility] [address] [place] [address] USAPlatelet mean volume (Bld) [Entitic vol]8.2 fLNormal 6.6-10.1The Count Includes The [facility] Physician GroupComment on above:Performed By: #### UA #### [facility] [address] [place] [address] USAPlatelets (Bld) [#/Vol]190 10*3/sTJplkug103-797Cgt Count Includes The [facility] Physician GroupComment on above:Performed By: #### UA #### [facility] [address] [place] [address] USARBC (Bld) [#/Vol]3.33 10*6/uLLow3.90-5.60The Count Includes The [facility] Physician GroupComment on above:Performed By: #### UA #### [facility] [address] [place] [address] USAWBC (Bld) [#/Vol]6.2 10*3/uLNormal4.1-10.5The Count Includes The [facility] Physician GroupComment on above:Performed By: #### UA #### [facility] [address] [place] [address] USAComprehensive Metabolic Panelon 99-73-0345Hgvvjkr [Mass/Vol]2.9 g/dLLow3.5-5.7The Count Includes The [facility] Physician GroupComment on above: Performed By: #### UA #### [facility] [address] [place] [address] USAAlbumin/Globulin [Mass ratio]1.2 {ratio}NormalThe Count Includes The [facility] Physician GroupComment on above:Performed By: #### UA #### [place] [address] USAALP [Catalytic activity/Vol]52 U/XAiiwat15-391Yio Count Includes The [facility] Physician GroupComment on above:Performed By: #### UA #### [place] [address] USAALT [Catalytic activity/Vol]14 U/LNormal7-52The Count Includes The [facility] Physician GroupComment on above:Performed By: #### UA #### [place] [address] USAAnion gap [Moles/Vol]9.1 mmol/LNormal6.0-15.0The Count Includes The [facility] Physician GroupComment on above:Performed By: #### UA #### [place] [address] USAAST [Catalytic activity/Vol]15 U/EOxtuqf27-04Ljh Count Includes The [facility] Physician GroupComment on above:Performed By: #### UA #### [place] [address] USABilirubin [Mass/Vol]0.6 mg/dLNormal0.3-1.0The Count Includes The [facility] Physician GroupComment on above:Performed By: #### UA #### [place] [address] USACalcium [Mass/Vol]8.2 mg/dLLow8.6-10.3The Count Includes The [facility] Physician GroupComment on above:Performed By: #### UA #### [place] [address] USAChloride [Moles/Vol]108 mmol/SEsfm67-739Dru Count Includes The [facility] Physician GroupComment on above:Performed By: #### UA #### [facility] [address] [place] [address] USACO2 [Moles/Vol]24.2 mmol/ZYopeoz20.0-31.0The Count Includes The [facility] Physician GroupComment on above:Performed By: #### UA #### [facility] [address] [place] [address] USACreatinine [Mass/Vol]0.75 mg/dLNormal0.70-1.30The Count Includes The [facility] Physician GroupComment on above:Performed By: #### UA #### [facility] [address] [place] [address] USACreatinine Clr Calc Izavicip10.79NormalThe Count Includes The [facility] Physician GroupComment on above:Performed By: #### UA #### [facility] [address] [place] [address] USAGFR/1.73 sq M.predicted MDRD (S/P/Bld) [Vol rate/Area] mL/min/{1.73_m2}NormalThe Count Includes The [facility] Physician GroupComment on above:Performed By: #### UA #### [place] [address] USAGlobulin (S) [Mass/Vol]2.4 g/dLNormalThe Count Includes [facility] Physician GroupComment on above:Performed By: #### UA #### [facility] [address] [place] [address] USAGlucose [Mass/Vol]94 mg/bLJsqkod03-837Vko Count Includes The [facility] Physician GroupComment on above:Result Comment: Random Glucose Reference Range is dependent on time and content of last meal. Glucose of more than 200 mg/dL in a nonstressed, ambulatory subject supports the diagnosis of Diabetes Mellitus. ADA recommended reference rangePerformed By: #### UA #### [place] [address] USAPotassium [Moles/Vol]3.3 mmol/LLow3.5-5.1The Count Includes The [facility] Physician GroupComment on above:Performed By: #### UA #### [facility] [address] [place] [address] USAProtein [Mass/Vol]5.3 g/dLLow6.4-8.9The Count Includes The [facility] Physician GroupComment on above:Performed By: #### UA #### [facility] [address] [place] [address] USASodium [Moles/Vol]138 mmol/NDsmusy210-130Vug Count Includes The [facility] Physician GroupComment on above:Performed By: #### UA #### [facility] [address] [place] [address] USAUrea nitrogen [Mass/Vol]10 mg/dLNormal7-25The Count Includes The [facility] Physician GroupComment on above:Performed By: #### UA #### [facility] [address] [place] [address] USACreatinine [Mass/volume] in Serum or PlasmaOrdered By: Jaiden Nance on 15-98-3075Bqqhqsroef [Mass/Vol]Creatinine [Mass/volume] in Serum or Plasma0.70-1.30[facility] CenterEosinophils Auto (Bld) [#/Vol]Ordered By: Jaiden Nance on 52-50-2469Eeydxjngqfd (Bld) [#/Vol]Automated eosinophil count0.0-0.45[facility] CenterEosinophils/100 WBC Auto (Bld)Ordered By: Jaiden Nance on 76-99-0739Msiyrxhrasi/100 WBC (Bld) Automated eosinophil %.[facility] Medical CenterErythrocyte distribution width Auto (RBC) [Ratio]Ordered By: Jaiden Nance on 55-51-6482Taczxdofeku distribution width (RBC) [Ratio]Erythrocyte distribution width [Ratio] by Automated count12.0-14.8[facility] Medical CenterGlobulin Calc (S) [Mass/Vol]Ordered By: Jaiden Nance on 11-03-0835Vxsvkwfk (S) [Mass/Vol]Serum globulin measurement by calculation (mass/volume)[facility] CenterGlucose [Mass/volume] in Serum or PlasmaOrdered By: Jaiden Nance on 16-66-9510Fvtggfh [Mass/Vol]Glucose [Mass/volume] in Serum or Tztcjc34-312 [facility] CenterComment on above:ADA recommended reference rangeRandom Glucose Reference Range is dependent on time and content of last meal. Glucose of more than 200 mg/dL in a nonstressed, ambulatory subject supports the diagnosisof Diabetes Mellitus.Hematocrit Auto (Bld) [Volume fraction]Ordered By: Jaiden Nance on 83-00-4736Fldbyudqqr (Bld) [Volume fraction]Hematocrit [Volume Fraction] of Blood by Automated yogaxXik94.8-50.0 [facility] CenterHemoglobin [Mass/volume] in BloodOrdered By: Jaiden Nance on 00-40-6072Nirhqejlbz (Bld) [Mass/Vol]Hemoglobin [Mass/volume] in LyqhwTfq03.0-17.0[facility] CenterLeukocytes [#/volume] corrected for nucleated erythrocytes in Blood by Automated counOrdered By: Jaiden Nance on 58-36-4247LRE corrected for nucl RBC Auto (Bld) [#/Vol] Leukocytes [#/volume] corrected for nucleated erythrocytes in Blood by Automated coun4.1-10.5FSt. Charles HospitalLymphocytes Auto (Bld) [#/Vol] Ordered By: Jaiden Nance on 18-21-2433Yreplrjiazn (Bld) [#/Vol]Lymphocytes [#/volume] in Blood by Automated countLow1.00-4.8[facility] CenterLymphocytes/100 WBC Auto (Bld)Ordered By: Jaiden Nance on 08-21-2024 Lymphocytes/100 WBC (Bld)Lymphocytes/100 leukocytes in Blood by Automated count. [facility] CenterMCH Auto (RBC) [Entitic mass]Ordered By: Jaiden Nance on 38-83-8843TSR (RBC) [Entitic mass]MCH [Entitic mass] by Automated count27.5-35.2FSt. Charles HospitalMCHC Auto (RBC) [Mass/Vol]Ordered By: Jaiden Nance on 66-21-5843EXGC (RBC) [Mass/Vol]MCHC [Mass/volume] by Automated count32.5-35.6[facility] CenterMCV Auto (RBC) [Entitic vol]Ordered By: Jaiden Nance on 20-13-0574NEC (RBC) [Entitic vol]MCV [Entitic volume] by Automated count83.5-101[facility] Medical CenterMagnesiumon 62-78-3133Vjmgrnvqx [Mass/Vol]1.8 mg/dLLow1.9-2.7The Count Includes The [facility] Physician GroupComment on above:Result Comment: PERFORMED BY: [facility] [address] [place] [address] PATHOLOGIST COMMERCIAL CREDIT ANALYST HEBER SHANNON M.D.Performed By: #### UA #### [facility] [address] [place] [address] USAMagnesium [Mass/volume] in Serum or PlasmaOrdered By: Jaiden Nance on 52-95-5769Kjgeuaziv [Mass/Vol]Magnesium [Mass/volume] in Serum or PlasmaLow1.9-2.7FSt. Charles HospitalMonocytes Auto (Bld) [#/Vol] Ordered By: Jaiden Nance on 22-18-5912Wwpyksokm (Bld) [#/Vol]Automated blood monocyte count0.0-0.8[facility] CenterMonocytes/100 WBC Auto (Bld)Ordered By: Jaiden Nance on 41-25-6631Xwagupmap/100 WBC (Bld)Automated monocyte %.[facility] Medical CenterNeutrophils Auto (Bld) [#/Vol] Ordered By: Jaiden Nance on 54-23-3660Jozkzawsxmk (Bld) [#/Vol]Neutrophils [#/volume] in Blood by Automated count1.8-7.7FSt. Charles Hospital Neutrophils/100 WBC Auto (Bld)Ordered By: Jaiden Nance on 08-21-2024 Neutrophils/100 WBC (Bld)Automated neutrophil %.[facility] CenterNo Panel InformationOrdered By: Jaiden Nance on 57-35-2754Dnthigtit GFR (CKD-EPI)> 60.0 mL/MinLakehealth Beachwood Medical CenterPharmacy Creatinine Clearance (Chem59.79[facility] Medical CenterNucleated erythrocytes [Presence] in Blood by Automated countOrdered By: Jaiden Nance on 08-21-2024 Nucleated RBC Auto Ql (Bld)Nucleated erythrocytes [Presence] in Blood by Automated count0-0.5FSt. Charles HospitalPlatelet mean volume Auto (Bld) [Entitic vol]Ordered By: Jaiden Nance on 03-53-0516Qqxpoeei mean volume (Bld) [Entitic vol]Platelet mean volume [Entitic volume] in Blood by Automated count6.6-10.1FSt. Charles HospitalPlatelets Auto (Bld) [#/Vol] Ordered By: Jaiden Nance on 81-60-6483Ksiwlvajj (Bld) [#/Vol]Platelets [#/volume] in Blood by Automated kaffc540-315YxzuvqwinLakehealth Beachwood Medical Center Potassium [Moles/volume] in Serum or PlasmaOrdered By: Jaiden Nance on 80-76-9281Yipmdazpq [Moles/Vol]Potassium [Moles/volume] in Serum or PlasmaLow 3.5-5.1FSt. Charles HospitalProtein [Mass/volume] in Serum or Plasma Ordered By: Jaiden Nance on 37-06-6036Majgngt [Mass/Vol]Protein [Mass/volume] in Serum or PlasmaLow6.4-8.9L[facility] Medical CenterRBC Auto (Bld) [#/Vol]Ordered By: Jaiden Nance on 70-68-3052TUD (Bld) [#/Vol]Erythrocytes [#/volume] in Blood by Automated countLow3.90-5.60[facility] Jewish Hospitalerum or plasma albumin/globulin mass ratioOrdered By: Jaiden Nance 69-27-8776Theelke/Globulin [Mass ratio]Serum or plasma albumin/globulin mass ratioMercy Health – The Jewish Hospitalerum or plasma anion gap determination Ordered By: Jaiden Nance 81-78-1381Pqlao gap [Moles/Vol]Serum or plasma anion gap determination6.0-15.0[facility] Hospitalodium [Moles/volume] in Serum or PlasmaOrdered By: Jaiden Nance 77-78-5210Cluxzd [Moles/Vol] Sodium [Moles/volume] in Serum or Xlmaon708-620DbupxrnhbLakehealth Beachwood Medical Center Urea nitrogen [Mass/volume] in Serum or PlasmaOrdered By: Jaiden Nance on 63-48-2737Ikkc nitrogen [Mass/Vol]Urea nitrogen [Mass/volume] in Serum or Plasma 7-25L[facility] Medical CenterWBC Auto (Bld) [#/Vol]Ordered By: Jaiden Nance on 63-35-0824GRW (Bld) [#/Vol]Leukocytes [#/volume] in Blood by Automated count4.1-10.5FSt. Charles HospitalAlanine aminotransferase [Enzymatic activity/volume] in Serum or PlasmaOrdered By: Louie Marrero on 73-58-2555HDI [Catalytic activity/Vol]Alanine aminotransferase [Enzymatic activity/volume] in Serum or Plasma7-52[facility] CenterAlbumin [Mass/volume] in Serum or Plasma by Bromocresol green (BCG) dye binding metho Ordered By: Louie Marrero on 65-95-8328Tvuqjnd BCG dye [Mass/Vol]Albumin [Mass/volume] in Serum or Plasma by Bromocresol green (BCG) dye binding methoLow 3.5-5.7FSt. Charles HospitalAlkaline phosphatase [Enzymatic activity/volume] in Serum or PlasmaOrdered By: Louie Marrero on 05-21-2252WMB [Catalytic activity/Vol]Alkaline phosphatase [Enzymatic activity/volume] in Serum or Eeqafa25-157WgtylfegxLakehealth Beachwood Medical CenterAppearance of UrineOrdered By: Louie Marrero on 35-90-6569Djubcypcbp (U)Urine appearanceClearFSt. Charles HospitalAspartate aminotransferase [Enzymatic activity/volume] in Serum or PlasmaOrdered By: Louie Marrero on 05-14-2518SQS [Catalytic activity/Vol]Aspartate aminotransferase [Enzymatic activity/volume] in Serum or Nwrpfu83-23IrtvjqrffLakehealth Beachwood Medical CenterBasophils Auto (Bld) [#/Vol]Ordered By: Louie Marrero on 65-73-3559Iyronlpcf (Bld) [#/Vol]Automated basophil count 0.0-0.2FSt. Charles HospitalBasophils/100 WBC Auto (Bld)Ordered By: Louie Marrero on 20-31-5730Zgrpbbhan/100 WBC (Bld)Automated basophil %.[facility] Medical CenterBilirubin Test strip Ql (U)Ordered By: Louie Marrero on 49-15-3821Ylmzptfxo Ql (U)Bilirubin.total [Presence] in Urine by Test strip NegativeLakehealth Beachwood Medical CenterBilirubin.total [Mass/volume] in Serum or PlasmaOrdered By: Louie Marrero on 14-85-6033Rteswmemp [Mass/Vol] Bilirubin.total [Mass/volume] in Serum or Plasma0.3-1.0[facility] CenterBioFire Not Detectedon 65-54-7715QpsJdav Not DetectedNot detected NormalNot DetecteThe Count Includes [facility] Physician GroupComment on above:Result Comment: This is a duplicate RP2.1 COVID (PCR) result to be used for statistical tracking purpose only. PERFORMED BY: [place] [phone] PATHOLOGIST COMMERCIAL CREDIT ANALYST HEBER SHANNON M.D.Performed By: #### MG, SCAN CBC, CMP #### [facility] [address] [place] [address] USABlood Cultureon 57-02-6375Kimpbugj identified Cx Nom (Bld) MISSED X1 PT REFUSED TO LET ME TRY AGAIN RN NORRIS KNOWS NO GROWTH 5 DAYS PERFORMED BY: [place] [phone] PATHOLOGIST COMMERCIAL CREDIT ANALYST HEBER SHANNON M.D.NormalJackson North Medical Center Physician GroupComment on above: Performed By: #### ESR #### [place] [address] USABacteria identified Cx Nom (Bld)right chest NO GROWTH 5 DAYS PERFORMED BY: [place] [address] PATHOLOGIST COMMERCIAL CREDIT ANALYST HEBER SHANNON M.D.NormalJackson North Medical Center Physician GroupComment on above: Performed By: #### ESR #### [place] [address] USAC reactive protein [Mass/volume] in Serum or PlasmaOrdered By: Louie Marrero on 86-75-2033KRG [Mass/Vol]C reactive protein [Mass/volume] in Serum or PlasmaHigh0.0-0.5FSt. Charles HospitalC-Reactive Protein on 01-86-7450H-Reactive Protein3.3 mg/dLHigh0.0-0.5The Count Includes [facility] Comment on above:Result Comment: PERFORMED BY: [place] [address] PATHOLOGIST COMMERCIAL CREDIT ANALYST HEBER SHANNON M.D.Performed By: #### ESR #### [place] [address] USACOVID-19 Detected/Not DetectedOrdered By: Louie Marerro on 54-71-1426GAFG-CoV-2 (COVID-19) RNA MICHELLE+non-probe Ql (Nph)Not detectedNot DetectUniversity Hospitals Portage Medical CenterComment on above:This is a duplicate RP2.1 COVID (PCR) result to be used for statistical tracking purpose only. Calcium [Mass/volume] in Serum or PlasmaOrdered By: Louie Marrero on 08-20-2024 Calcium [Mass/Vol]Calcium [Mass/volume] in Serum or PlasmaLow8.6-10.3FSt. Charles HospitalCarbon dioxide, total [Moles/volume] in Serum or Plasma Ordered By: Louie Marrero on 86-51-2646EU6 [Moles/Vol]Carbon dioxide, total [Moles/volume] in Serum or Ewfscq29.0-31.0[facility] Chloride [Moles/volume] in Serum or PlasmaOrdered By: Louie Marrero on 89-38-7634Gcilmwng [Moles/Vol]Chloride [Moles/volume] in Serum or Twmgwc95-845 [facility] CenterColor Auto (U)Ordered By: Louie Marrero on 43-41-7407Ywpbe (U)Color of Urine by AutoYellowLakehealth Beachwood Medical Center Complete Blood Count Auto Diffon 57-97-6135Vslgrcoye (Bld) [#/Vol]0.0 10*3/uL Normal0.0-0.2The Count Includes The [facility] Physician GroupComment on above:Result Comment: PERFORMED BY: [place] [address] PATHOLOGIST COMMERCIAL CREDIT ANALYST HEBER SHANNON M.D.Performed By: #### UA #### [facility] [address] [place] [address] USABasophils/100 WBC (Bld)0.5 %Normal.The Count Includes The [facility] Physician GroupComment on above:Performed By: #### UA #### [facility] [address] [place] [address] USAEosinophils (Bld) [#/Vol]0.1 10*3/uLNormal0.0-0.45The Count Includes The [facility] Physician GroupComment on above:Performed By: #### UA #### [facility] [address] [place] [address] USAEosinophils/100 WBC (Bld)0.7 %Normal.The Count Includes The [facility] Physician GroupComment on above:Performed By: #### UA #### [place] [address] USAErythrocyte distribution width (RBC) [Ratio]14.8 %Normal 12.0-14.8The Count Includes The [facility] Physician GroupComment on above:Performed By: #### UA #### [facility] [address] [place] [id number] USAHematocrit (Bld) [Volume fraction]34.2 %Low38.8-50.0The Count Includes The [facility] Physician GroupComment on above:Performed By: #### UA #### [address] [address] USAHemoglobin (Bld) [Mass/Vol]11.4 g/dLLow13.0-17.0The Count Includes The [facility] Physician GroupComment on above:Performed By: #### UA #### [facility] [address] [place] [address] USALymphocytes (Bld) [#/Vol]0.8 10*3/uLLow1.00-4.8The Count Includes The [facility] Physician GroupComment on above:Performed By: #### UA #### [facility] [address] [place] [address] USALymphocytes/100 WBC (Bld)10.5 %Normal.The Count Includes The [facility] Physician GroupComment on above:Performed By: #### UA #### [address]H (RBC) [Entitic mass]31.0 skRypgzk07.5-35.2The Count Includes The [facility] Physician GroupComment on above:Performed By: #### UA #### [place] [address] USAMCV (RBC) [Entitic vol]92.9 rRWpudfl48.5-101The Count Includes The [facility] Physician GroupComment on above:Performed By: #### UA #### [place] [address] USAMean Corpuscular HGB Conc33.4 g/nAXtgtbp81.5-35.6The Count Includes The [facility] Physician GroupComment on above:Performed By: #### UA #### [place] [address] USAMonocytes (Bld) [#/Vol]0.8 10*3/uLNormal0.0-0.8The Count Includes The [facility] Physician GroupComment on above:Performed By: #### UA #### [place] [address] USAMonocytes/100 WBC (Bld)23.19 %High0.00-20.00The Count Includes The [facility] Physician GroupComment on above:Result Comment: For adults in ED, MDW > 20.0 may be associated with a higher risk of sepsis during the first 12 hrs of hospital admissionPerformed By: #### UA #### [place] [address] USAMonocytes/100 WBC (Bld)11.3 %Normal.The Count Includes The [facility] Physician GroupComment on above:Performed By: #### UA #### [place] [address] USANeutrophils (Bld) [#/Vol]5.7 10*3/uLNormal1.8-7.7The Count Includes The [facility] Physician GroupComment on above:Performed By: #### UA #### [place] [address] USANeutrophils/100 WBC (Bld)77.0 %Normal.The Count Includes The [facility] Physician GroupComment on above:Performed By: #### UA #### [place] [address] USANRBC%0.2 /100{WBC}Normal0-0.5The Count Includes [facility] Comment on above:Performed By: #### UA #### [place] [address] USAPlatelet mean volume (Bld) [Entitic vol]8.1 fLNormal 6.6-10.1The Count Includes The [facility] Physician GroupComment on above:Performed By: #### UA #### [place] [address] USAPlatelets (Bld) [#/Vol]234 10*3/rHYcvfwz296-161Upq Count Includes The [facility] Physician GroupComment on above:Performed By: #### UA #### [place] [address] USARBC (Bld) [#/Vol]3.68 10*6/uLLow3.90-5.60The Count Includes The [facility] Physician GroupComment on above:Performed By: #### UA #### [place] [address] USAWBC (Bld) [#/Vol]7.4 10*3/uLNormal4.1-10.5The Count Includes The [facility] Physician GroupComment on above:Performed By: #### UA #### [place] [address] USAComprehensive Metabolic Panelon 69-53-6646Hxbbwlp [Mass/Vol]3.4 g/dLLow3.5-5.7The Count Includes The [facility] Physician GroupComment on above: Performed By: #### ESR #### [place] [address] USAAlbumin/Globulin [Mass ratio]1.4 {ratio}NormalThe Count Includes The [facility] Physician GroupComment on above:Performed By: #### ESR #### [place] [address] USAALP [Catalytic activity/Vol]66 U/ZTtpyix37-198Nhh Count Includes The [facility] Physician GroupComment on above:Performed By: #### ESR #### [facility] [address] [place] [address] USAALT [Catalytic activity/Vol]17 U/LNormal7-52The Count Includes The [facility] Physician GroupComment on above:Performed By: #### ESR #### [facility] [address] [place] [address] USAAnion gap [Moles/Vol]10.3 mmol/LNormal6.0-15.0The Count Includes The [facility] Physician GroupComment on above:Performed By: #### ESR #### [facility] [address] [place] [address] USAAST [Catalytic activity/Vol]18 U/BMuxfux64-98Fox Count Includes The [facility] Physician GroupComment on above:Performed By: #### ESR #### [facility] [address] [place] [address] USABilirubin [Mass/Vol]0.6 mg/dLNormal0.3-1.0The Count Includes The [facility] Physician GroupComment on above:Performed By: #### ESR #### [facility] [address] [place] [address] USACalcium [Mass/Vol]8.4 mg/dLLow8.6-10.3The Count Includes The [facility] Physician GroupComment on above:Performed By: #### ESR #### [facility] [address] [place] [address] USAChloride [Moles/Vol]104 mmol/OJzaeoe89-491Rgu Count Includes The [facility] Physician GroupComment on above:Performed By: #### ESR #### [facility] [address] [place] [address] USACO2 [Moles/Vol]25.4 mmol/PVxidjj24.0-31.0The Count Includes The [facility] Physician GroupComment on above:Performed By: #### ESR #### [facility] [address] [place] [address] USACreatinine [Mass/Vol]0.85 mg/dLNormal0.70-1.30The Count Includes The [facility] Physician GroupComment on above:Performed By: #### ESR #### [place] [address] USACreatinine Clr Calc Wymebusm22.71NormHalifax Health Medical Center of [facility] Physician GroupComment on above:Result Comment: PERFORMED BY: [place] [address] PATHOLOGIST COMMERCIAL CREDIT ANALYST HEBER SHANNON M.D.Performed By: #### ESR #### [place] [address] USAGFR/1.73 sq M.predicted MDRD (S/P/Bld) [Vol rate/Area] mL/min/{1.73_m2}NormalThe Count Includes [facility] Physician GroupComment on above:Performed By: #### ESR #### [place] [address] USAGlobulin (S) [Mass/Vol]2.5 g/dLNoECU Health Roanoke-Chow[facility] Hospital Physician GroupComment on above:Performed By: #### ESR #### [place] [address] USAGlucose [Mass/Vol]106 mg/nINhtg04-540Ynw Count Includes [facility] Physician GroupComment on above:Result Comment: Random Glucose Reference Range is dependent on time and content of last meal. Glucose of more than 200 mg/dL in a nonstressed, ambulatory subject supports the diagnosis of Diabetes Mellitus. ADA recommended reference rangePerformed By: #### ESR #### [place] [address] USAPotassium [Moles/Vol]3.7 mmol/LNormal3.5-5.1The Count Includes [facility] Physician GroupComment on above:Performed By: #### ESR #### [place] [address] USAProtein [Mass/Vol]5.9 g/dLLow6.4-8.9The Count Includes [facility] Physician GroupComment on above:Performed By: #### ESR #### [place] [address] USASodium [Moles/Vol]136 mmol/GZoaxlx722-316Qzu Count Includes The [facility] Physician GroupComment on above:Performed By: #### ESR #### [facility] [address] [place] [address] USAUrea nitrogen [Mass/Vol]16 mg/dLNormal7[facility] Physician GroupComment on above:Performed By: #### ESR #### [facility] [address] [place] [address] USACreatinine [Mass/volume] in Serum or PlasmaOrdered By: Louie Marrero on 68-85-9240Xjeuhbnzcb [Mass/Vol]Creatinine [Mass/volume] in Serum or Plasma0.70-1.30[facility] CenterECG 12 lead ECGon 98-02-9633ETS 12 lead ECGOHIOHEALTH [facility] [place] [address] [place] [address] Electrocardiograph Report Signed Patient: Jeremie Bennett MR#: [id number] : 1940 Acct:[id number] Age/Sex: 83 / M ADM Date: 08/20/24 Loc: ER Room: Type: [facility] ER Attending Dr: Ordering Provider: [...] ECGs available Confirmed by LOUIE MARRERO DO ([id number]) on 08/20/2024 7:55:25 PM Referred By: Electronically Signed By: LOUIE MARRERO DO Transcribed By: MUS Signed By Louie Marrero DO 08/20 [facility] Physician GroupEosinophils Auto (Bld) [#/Vol]Ordered By: Louie Marrero on 54-19-7502Dffswdsalxc (Bld) [#/Vol]Automated eosinophil count0.0-0.45[facility] CenterEosinophils/100 WBC Auto (Bld) Ordered By: Louie Marrero on 47-60-9234Hhqxmscmwfe/100 WBC (Bld)Automated eosinophil %.[facility] CenterErythrocyte Sedimentation Rateon 93-80-5458JRC (Bld) [Velocity]42 mm/hHigh0-19The Count Includes [facility] Comment on above:Result Comment: PERFORMED BY: [place] [address] PATHOLOGIST COMMERCIAL CREDIT ANALYST HEBER SHANNON M.D.Performed By: #### ESR #### [place] [address] USAErythrocyte distribution width Auto (RBC) [Ratio]Ordered By: Louie Marrero on 05-11-6775Ayaeurzdmcx distribution width (RBC) [Ratio] Erythrocyte distribution width [Ratio] by Automated count12.0-14.8[facility] Medical CenterErythrocyte sedimentation rate by Photometric method Ordered By: Jaiden Nance on 82-73-7188SPH Photometric method (Bld) [Velocity] Erythrocyte sedimentation rate by Photometric methodHigh0-19[facility] Medical CenterGlobulin Calc (S) [Mass/Vol]Ordered By: Louie Marrero on 53-57-8172Leuejffh (S) [Mass/Vol]Serum globulin measurement by calculation (mass/volume)[facility] CenterGlucose [Mass/volume] in Serum or PlasmaOrdered By: Louie Marrero on 04-23-4409Kugouew [Mass/Vol]Glucose [Mass/volume] in Serum or MfzthfRavd57-189TyyribznxLakehealth Beachwood Medical Center Comment on above:ADA recommended reference rangeRandom Glucose Reference Range is dependent on time and content of last meal. Glucose of more than 200 mg/dL in a nonstressed, ambulatory subject supports the diagnosisof Diabetes Mellitus. Glucose [Mass/volume] in Urine by Test stripOrdered By: Louie Marrero on 43-18-8550Kdohmts Test strip (U) [Mass/Vol]Glucose [Mass/volume] in Urine by Test stripNormalLakehealth Beachwood Medical CenterHematocrit Auto (Bld) [Volume fraction]Ordered By: Louie Marrero on 10-84-1573Cnstggvzan (Bld) [Volume fraction]Hematocrit [Volume Fraction] of Blood by Automated auiziIof34.8-50.0 [facility] CenterHemoglobin Test strip Ql (U)Ordered By: Louie Marrero on 70-13-5768Rsocpulroz Ql (U)Hemoglobin [Presence] in Urine by Test stripNegativeLakehealth Beachwood Medical CenterHemoglobin [Mass/volume] in Blood Ordered By: Louie Marrero on 66-99-9253Iogvlhccve (Bld) [Mass/Vol]Hemoglobin [Mass/volume] in IfeijQwp68.0-17.0[facility] CenterINR in Platelet poor plasma by Coagulation assayOrdered By: Louie Marrero on 08-20-2024 INR Coag (PPP) [Relative time]INR in Platelet poor plasma by Coagulation assay [facility] CenterComment on above:INR Therapeutic Range A) [...] strip Ql (U)Ordered By: Louie Marrero on 15-27-1343Bfatsux Ql (U)Ketones [Presence] in Urine by Test stripHighNegMercy Health St. Joseph Warren HospitalLaboratory - Microbiology and Antimicrobial susceptibilityOrdered By: Louie Marrero on 01-38-6435Moekvuif identified Cx Nom (Bld)NO GROWTH 5 DAYSLakehealth Beachwood Medical CenterBacteria identified Cx Nom (Bld)NO GROWTH 5 DAYSLakehealth Beachwood Medical CenterLactate [Moles/volume] in Serum or PlasmaOrdered By: Louie Marrero on 21-92-8111Uqyqqff [Moles/Vol]Lactate [Moles/volume] in Serum or Plasma0.5-1.9[facility] CenterComment on above:Lactic Acid reference range has been updated to 0.5 1.9 mmol/L and the critical range of 2.0 or greater.Lactic Acidon 08-20-2024 Lactate [Moles/Vol]0.8 mmol/LNormal0.5-1.9The Count Includes [facility] Physician GroupComment on above:Result Comment: Lactic Acid reference range has been updated to 0.5 ? 1.9 mmol/L and the critical range of 2.0 or greater. PERFORMED BY: [place] [address] PATHOLOGIST COMMERCIAL CREDIT ANALYST HEBER SHANNON M.D.Performed By: #### UA #### [place] [address] USALeukocyte esterase [Presence] in Urine by Test strip Ordered By: Louie Marrero on 83-70-7883Jblszljnh esterase Test strip Ql (U) Leukocyte esterase [Presence] in Urine by Test stripNegativeLakehealth Beachwood Medical CenterLeukocytes [#/volume] corrected for nucleated erythrocytes in Blood by Automated counOrdered By: Louie Marrero on 85-75-2076PRI corrected for nucl RBC Auto (Bld) [#/Vol]Leukocytes [#/volume] corrected for nucleated erythrocytes in Blood by Automated coun4.1-10.5FSt. Charles Hospital Lymphocytes Auto (Bld) [#/Vol]Ordered By: Louie Marrero on 69-40-6392Srdixzzkzkn (Bld) [#/Vol]Lymphocytes [#/volume] in Blood by Automated countLow1.00-4.8 [facility] CenterLymphocytes/100 WBC Auto (Bld)Ordered By: Louie Marrero on 41-77-2093Sbqpprtowkf/100 WBC (Bld)Lymphocytes/100 leukocytes in Blood by Automated count.[facility] HospitalH Auto (RBC) [Entitic mass]Ordered By: Louie Marrero on 56-95-1931CMO (RBC) [Entitic mass]MCH [Entitic mass] by Automated count27.5-35.2FSt. Charles HospitalMCHC Auto (RBC) [Mass/Vol]Ordered By: Louie Marrero on 41-55-0883MFQM (RBC) [Mass/Vol]MCHC [Mass/volume] by Automated count32.5-35.6FThe Jewish HospitalV Auto (RBC) [Entitic vol]Ordered By: Louie Marrero on 71-65-3484PUI (RBC) [Entitic vol]MCV [Entitic volume] by Automated count83.5-101 [facility] CenterMonocyte distribution width [Entitic volume] in Blood by AutomatedOrdered By: Louie Marrero on 21-63-3657Dslcnkgz distribution width Auto (Bld) [Entitic vol]Monocyte distribution width [Entitic volume] in Blood by AutomatedHigh0.00-20.00[facility] CenterComment on above:For adults in ED, MDW > 20.0 may be associated with a higher risk of sepsis during the first 12 hrs of hospital admissionMonocytes Auto (Bld) [#/Vol] Ordered By: Louie Marrero on 18-85-4492Rsvufytuu (Bld) [#/Vol]Automated blood monocyte count0.0-0.8[facility] CenterMonocytes/100 WBC Auto (Bld)Ordered By: Louie Marrero on 07-20-7616Mtobqmwcs/100 WBC (Bld)Automated monocyte %.[facility] CenterNeutrophils Auto (Bld) [#/Vol] Ordered By: Louie Marrero on 41-83-2083Pygufeveych (Bld) [#/Vol]Neutrophils [#/volume] in Blood by Automated count1.8-7.7FSt. Charles Hospital Neutrophils/100 WBC Auto (Bld)Ordered By: Louie Marrero on 08-20-2024 Neutrophils/100 WBC (Bld)Automated neutrophil %.[facility] Medical CenterNitrite Test strip Ql (U)Ordered By: Louie Marrero on 63-05-8404Etkzwmn Ql (U)Nitrite [Presence] in Urine by Test stripNegativeLakehealth Beachwood Medical CenterNo Panel InformationOrdered By: Louie Marrero on 31-87-9636Txqnncamx GFR (CKD-EPI)> 60.0 mL/MinLakehealth Beachwood Medical CenterPharmacy Creatinine Clearance (Chem58.71[facility] CenterNucleated erythrocytes [Presence] in Blood by Automated countOrdered By: Louie Marrero on 08-20-2024 Nucleated RBC Auto Ql (Bld)Nucleated erythrocytes [Presence] in Blood by Automated count0-0.5FSt. Charles HospitalPlatelet mean volume Auto (Bld) [Entitic vol]Ordered By: Louie Marrero on 96-92-0654Rhzfwxbt mean volume (Bld) [Entitic vol]Platelet mean volume [Entitic volume] in Blood by Automated count6.6-10.1FSt. Charles HospitalPlatelets Auto (Bld) [#/Vol] Ordered By: Louie Marrero on 79-56-2829Tvqjuujuf (Bld) [#/Vol]Platelets [#/volume] in Blood by Automated -858VmxcjtnbmLakehealth Beachwood Medical Center Potassium [Moles/volume] in Serum or PlasmaOrdered By: Louie Marrero on 07-67-1249Kzujalucm [Moles/Vol]Potassium [Moles/volume] in Serum or Plasma 3.5-5.1FSt. Charles HospitalProtein Test strip (U) [Mass/Vol]Ordered By: Louie Marrero on 89-75-7400Phieaqo (U) [Mass/Vol]Protein [Mass/volume] in Urine by Test stripNegativeLakehealth Beachwood Medical CenterProtein [Mass/volume] in Serum or PlasmaOrdered By: Louie Marrero on 78-26-5595Rcpmhmh [Mass/Vol]Protein [Mass/volume] in Serum or PlasmaLow6.4-8.9[facility] CenterProthrombin Time INRon 14-89-2278BLY Coag (PPP) [Relative time]1.1 {INR}NormalThe Count Includes [facility] Hospital Physician GroupComment on above:Result Comment: INR [...] heart valves: 3 - 4.5 PERFORMED BY: [place] [address] PATHOLOGIST COMMERCIAL CREDIT ANALYST HEBER SHANNON M.D.Performed By: #### ESR #### [place] [address] USAPT Coag (PPP) [Time]12.9 sNormal9.0-12.9The Count Includes [facility] Physician GroupComment on above:Result Comment: A hematocrit value greater than 55% may lead to inaccurate results in coagulation testing. Patients having hematocrit values >55% require a special collection tube for coagulation studies. Please contact the laboratory at [phone] for redraw instructions.Performed By: #### ESR #### [facility] [address] [place] [address] USAProthrombin time (PT)Ordered By: Louie Marrero on 80-61-5620US Coag (PPP) [Time]Prothrombin time (PT)9.0-12.9[facility] Medical CenterComment on above:A hematocrit value greater than 55% may lead to inaccurate results in coagulation testing. Patientshaving hematocrit values >55% require a special collection tube for coagulation studies. Please contact the laboratory at [phone] for redraw instructions.RBC Auto (Bld) [#/Vol]Ordered By: Louie Marrero on 04-32-5894UKF (Bld) [#/Vol]Erythrocytes [#/volume] in Blood by Automated countLow3.90-5.60[facility] Medical CenterRespiratory (Upper) Panel, PCRon 93-04-9835Puuxjmcmltb (Upper) Panel, PCRAdenovirus Not detected Bordetella parapertussis [...] Influenza A H3 Blank Space PERFORMED BY: [place] [id number] PATHOLOGIST COMMERCIAL CREDIT ANALYST HEBER SHANNON M.D.NormalJackson North Medical Center Physician GroupComment on above: Performed By: #### MG, SCAN CBC, CMP #### [place] [address] USARespiratory pathogens DNA and RNA panel - Nasopharynx by MICHELLE with non-probe detectionOrdered By: Louie Marrero on 94-82-9914Bmbcylnojwe pathogens DNA and RNA panel MICHELLE+non-probe (Nph)Respiratory pathogens DNA and RNA panel - Nasopharynx by MICHELLE with non-probe detectionMercy Health – The Jewish Hospitalerum or plasma albumin/globulin mass ratioOrdered By: Louie Marrero on 12-82-6264Ihohfgb/Globulin [Mass ratio]Serum or plasma albumin/globulin mass ratioMercy Health – The Jewish Hospitalerum or plasma anion gap determination Ordered By: Louie Marrero on 86-54-8288Tgwig gap [Moles/Vol]Serum or plasma anion gap determination6.0-15.0Mer[facility] – The Jewish Hospitalodium [Moles/volume] in Serum or PlasmaOrdered By: Louie Marrero on 83-88-2946Xvhqlj [Moles/Vol]Sodium [Moles/volume] in Serum or Mbfqfo511-467KtngtodmvMercy Health – The Jewish Hospitalpecific gravity Test strip (U) [Rel density]Ordered By: Louie Marrero on 05-42-5910Ewhntxbq gravity (U) [Rel density]Specific gravity of Urine by Test strip1.001-1.030[facility] Medical CenterTroponin I High Sensitivityon 77-79-9233Laenlvtn I High Fjtgpqmbhpv11Uarhiz9-56Ckc Count Includes The [facility] Physician GroupComment on above:Result Comment: The Troponin units of report have been changed to meet the Chest Pain Accreditation requirement, element EC5.M1l2. Troponin units are changed from pg/ml to ng/L. Also, the decimal is removed and results are in whole numbers. PERFORMED BY: [place] [id number] PATHOLOGIST COMMERCIAL CREDIT ANALYST HEBER SHANNON M.D.Performed By: #### MG, SCAN CBC, CMP #### [facility] [address] [place] [id number] USATroponin I.cardiac [Mass/volume] in Serum or Plasma by Detection limit <= 0.01 ng/Ordered By: Louie Marrero on 28-11-3213Nqhyysii I.cardiac DL <= 0.01 ng/mL [Mass/Vol]Troponin I.cardiac [Mass/volume] in Serum or Plasma by Detection limit <= 0.01 ng/0-20[facility] Comment on above:The Troponin units of report have been changed to meet the Chest Pain Accreditation requirement, element EC5.M1l2. Troponin units are changed from pg/ml to ng/L. Also, the decimal is removed and results are in whole numbers.Urea nitrogen [Mass/volume] in Serum or PlasmaOrdered By: Louie Marrero on 37-44-6762Ixqj nitrogen [Mass/Vol]Urea nitrogen [Mass/volume] in Serum or Plasma12-08[facility] Medical CenterUrinalysison 08-20-2024 Appearance (U)ClearNormalClearThe Count Includes The [facility] Physician GroupComment on above: Order Comment: Name Collection Type:: Straight CatheterPerformed By: #### MG, SCAN CBC, CMP #### [facility] [address] [place] [id number] USABilirubin,UrineNegativeNormalNegativeThe Count Includes The [facility] Physician GroupComment on above:Order Comment: Name Collection Type:: Straight CatheterPerformed By: #### MG, SCAN CBC, CMP #### [facility] [address] [place] [id number] USAColor (U)Light-YellowNormalYellowThe Count Includes The [facility] Physician GroupComment on above:Order Comment: Name Collection Type:: Straight Catheter Performed By: #### MG, SCAN CBC, CMP #### [facility] [address] [place] [id number] USAGlucose Ql (U)NormalNormalNormalThe Count Includes The [facility] Physician GroupComment on above:Order Comment: Name Collection Type:: Straight Catheter Performed By: #### MG, SCAN CBC, CMP #### [place] [address] USAKetones Ql (U)1+HighNegativeThe Count Includes [facility] Comment on above:Order Comment: Name Collection Type:: Straight Catheter Performed By: #### MG, SCAN CBC, CMP #### [place] [address] USALeukocyte esterase Test strip Ql (U)NegativeNormalNegative The Count Includes The [facility] Physician GroupComment on above:Order Comment: Name Collection Type:: Straight CatheterPerformed By: #### MG, SCAN CBC, CMP #### [place] [address] USANitrite,UrineNegativeNormalNegativeThe Count Includes The [facility] Physician GroupComment on above:Order Comment: Name Collection Type:: Straight Catheter Performed By: #### MG, SCAN CBC, CMP #### [place] [address] USAOccult Blood,UrineNegativeNormalNegativeThe Count Includes The [facility] Physician GroupComment on above:Order Comment: Name Collection Type:: Straight CatheterResult Comment: PERFORMED BY: [place] [address] PATHOLOGIST COMMERCIAL CREDIT ANALYST HEBER SHANNON M.D.Performed By: #### MG, SCAN CBC, CMP #### [facility] [address] [place] [address] USApH (U)5.5 [pH]Normal5.0-9.0The Count Includes [facility] Comment on above:Order Comment: Name Collection Type:: Straight Catheter Performed By: #### MG, SCAN CBC, CMP #### [place] [address] USAProtein,UrineNegativeNormalNegativeThe Count Includes The [facility] Physician GroupComment on above:Order Comment: Name Collection Type:: Straight Catheter Performed By: #### MG, SCAN CBC, CMP #### [facility] [address] [place] [address] USASpecificy [place],Urine1.858Raqpqq9.001-1.030The Count Includes The [facility] Physician GroupComment on above:Order Comment: Name Collection Type:: Straight CatheterPerformed By: #### MG, SCAN CBC, CMP #### [facility] [address] [place] [address] USAUrobilinogen,UrineNormalNormalNormPremier Health Atrium Medical Centere Count Includes The [facility] Physician GroupComment on above:Order Comment: Name Collection Type:: Straight CatheterPerformed By: #### MG, SCAN CBC, CMP #### [facility] [address] [place] [address] USAUrobilinogen Test strip (U) [Mass/Vol]Ordered By: Louie Marrero on 53-19-6332Rfjvlmpcquea (U) [Mass/Vol]Urobilinogen [Mass/volume] in Urine by Test stripNoCleveland Clinic Marymount HospitalWBC Auto (Bld) [#/Vol] Ordered By: Louie Marrero on 09-93-8178PTU (Bld) [#/Vol]Leukocytes [#/volume] in Blood by Automated count4.1-10.5FSt. Charles HospitalX-ray report Ordered By: Rah Benavides on 92-24-2320Scbmr [facility] [place] [address] [place] [id number] XRay Report Signed Patient: Jeremie Bennett MR#: [id number] : 1940 Acct:[id number] Age/Sex: 83 / M ADM Date: 5 Loc: ER Room: Type: [facility] ER Attending Dr: Copies to: Louie Marrero DO~ Ordering Provider: Louie Marrero DO Date of Service: 08/20/24 XR/XR chest 1V portable: Fever SINGLE VIEW CHEST CLINICAL HISTORY: Fever, recently finished chemotherapy, cough for 3 weeks COMPARISON: 07/17/2024 FINDINGS: Left-sided pacemaker device. Right-sided Zisymb-p-Hdgp. Posterior changes fromprior ACDF. Mildly enlarged cardiac silhouette. Minimal hazy bibasilar opacities similar prior exam. No effusion or pneumothorax. XR/XR chest 1V portable IMPRESSION: MILD BIBASILAR AIRSPACE OPACITIES, THESE APPEAR SIMILAR PRIOR EXAM. Impression dictated by: Rah Benavides M.D.08/20/2024 6:32 PM Dictation Location: RADIO-PC-29 Transcribed By: PERLA 08/20/241831 Dictated By: Rah Benavides MD 08/20/241830 Signed By: 08/20/24 [facility] Work Phone: xr chest 1V portableon 00-77-4075QY chest 1V portable [facility] [place] [address] XRay Report Signed Patient: Jeremie Bennett MR#: [id number] : 1940 Acct:[id number] Age/Sex: 83 / M ADM Date: 08/20/24 Loc: ER Room: Type: [facility] ER Attending Dr: Copies to: Louie Marrero DO Ordering Provider: Louie Marrero DO Date of Service: 08/20/24 XR/XR chest 1V portable: Fever SINGLE VIEW CHEST CLINICAL HISTORY: Fever, recently finished chemotherapy, cough for 3 weeks COMPARISON: 07/17/2024 FINDINGS: Left-sided pacemaker device. Right-sided Qhlptx-y-Exds. Posterior changes from prior ACDF. Mildly enlarged cardiac silhouette. Minimal hazy bibasilar opacities similar prior exam. No effusion or pneumothorax. XR/XR chest 1V portable IMPRESSION: MILD BIBASILAR AIRSPACE OPACITIES, THESE APPEAR SIMILAR PRIOR EXAM. Impression dictated by: Rah Benavides M.D.08/20/2024 6:32 PM Dictation Location: RADIO-PC-29 Transcribed By: PERLA 08/20/241831 Dictated By: Rah Benavides MD 08/20/241830 Signed By: 08/20/24 [facility] Physician GrouppH Test strip (U)Ordered By: Louie Marrero on 23-60-4264vW (U)pH of Urine by Test strip5.0-9.0[facility] Medical CenterAlanine aminotransferase [Enzymatic activity/volume] in Serum or PlasmaOrdered By: Talib Faustin on 09-10-9532HRK [Catalytic activity/Vol]Alanine aminotransferase [Enzymatic activity/volume] in Serum or Plasma7-52[facility] CenterAlbumin [Mass/volume] in Serum or Plasma by Bromocresol green (BCG) dye binding methoOrdered By: Talib Faustin on 72-58-6230Oxyvznl BCG dye [Mass/Vol]Albumin [Mass/volume] in Serum or Plasma by Bromocresol green (BCG) dye binding metho3.5-5.7FSt. Charles HospitalAlkaline phosphatase [Enzymatic activity/volume] in Serum or PlasmaOrdered By: Talib Faustin on 55-18-9608SSJ [Catalytic activity/Vol]Alkaline phosphatase [Enzymatic activity/volume] in Serum or Duogti47-241NnimidonzLakehealth Beachwood Medical CenterAspartate aminotransferase [Enzymatic activity/volume] in Serum or Plasma Ordered By: Talib Faustin on 73-76-2841KOS [Catalytic activity/Vol]Aspartate aminotransferase [Enzymatic activity/volume] in Serum or Zbjyhy00-86GowsnysefLakehealth Beachwood Medical CenterBasophils Auto (Bld) [#/Vol]Ordered By: Talib Faustin on 43-84-3879Yhdiufnuk (Bld) [#/Vol]Automated basophil count0.0-0.2FSt. Charles HospitalBasophils/100 WBC Auto (Bld)Ordered By: Talib Faustin on 35-26-1794Jdmpodxfp/100 WBC (Bld)Automated basophil %.[facility] Medical CenterBilirubin.total [Mass/volume] in Serum or PlasmaOrdered By: Talib Faustin on 34-09-8176Fhrrkvfbx [Mass/Vol]Bilirubin.total [Mass/volume] in Serum or Plasma0.3-1.0[facility] CenterCalcium [Mass/volume] in Serum or PlasmaOrdered By: Talib Faustin on 98-41-4431Giuxflu [Mass/Vol]Calcium [Mass/volume] in Serum or Plasma8.6-10.3FSt. Charles HospitalCarbon dioxide, total [Moles/volume] in Serum or PlasmaOrdered By: Talib Faustin on 53-52-6662FW4 [Moles/Vol]Carbon dioxide, total [Moles/volume] in Serum or Plasma 21.0-31.0[facility] CenterChloride [Moles/volume] in Serum or PlasmaOrdered By: Talib Faustin on 49-66-5831Vlyqejgu [Moles/Vol]Chloride [Moles/volume] in Serum or Ccccvd24-309LdyguqvfjLakehealth Beachwood Medical CenterComplete Blood Count Auto Diffon 70-16-8917Memlcfukq (Bld) [#/Vol]0.1 10*3/uLNormal 0.0-0.2The Count Includes The [facility] Physician GroupComment on above:Result Comment: PERFORMED BY: [place] [address] PATHOLOGIST COMMERCIAL CREDIT ANALYST HEBER SHANNON M.D.Performed By: #### ESR #### [place] [address] USABasophils/100 WBC (Bld)1.1 %Normal.The Count Includes The [facility] Physician GroupComment on above:Performed By: #### ESR #### [place] [address] USAEosinophils (Bld) [#/Vol]0.1 10*3/uLNormal0.0-0.45The Count Includes The [facility] Physician GroupComment on above:Performed By: #### ESR #### [place] [address] USAEosinophils/100 WBC (Bld)0.7 %Normal.The Count Includes The [facility] Physician GroupComment on above:Performed By: #### ESR #### [place] [address] USAErythrocyte distribution width (RBC) [Ratio]15.2 %High 12.0-14.8The Count Includes The [facility] Physician GroupComment on above:Performed By: #### ESR #### [place] [address] USAHematocrit (Bld) [Volume fraction]34.8 %Low38.8-50.0The Count Includes The [facility] Physician GroupComment on above:Performed By: #### ESR #### [place] [address] USAHemoglobin (Bld) [Mass/Vol]11.7 g/dLLow13.0-17.0The Count Includes The [facility] Physician GroupComment on above:Performed By: #### ESR #### [place] [address] USALymphocytes (Bld) [#/Vol]0.6 10*3/uLLow1.00-4.8The Count Includes The [facility] Physician GroupComment on above:Performed By: #### ESR #### [place] [address] USALymphocytes/100 WBC (Bld)6.4 %Normal.The Count Includes The [facility] Physician GroupComment on above:Performed By: #### ESR #### [place] [address] USAMCH (RBC) [Entitic mass]30.8 jySzsyll44.5-35.2The Count Includes The [facility] Physician GroupComment on above:Performed By: #### ESR #### [place] [address] USAMCV (RBC) [Entitic vol]91.9 eFDikzog47.5-101The Count Includes The [facility] Physician GroupComment on above:Performed By: #### ESR #### [place] [address] USAMean Corpuscular HGB Conc33.5 g/nUYpitnt05.5-35.6The Count Includes The [facility] Physician GroupComment on above:Performed By: #### ESR #### [place] [address] USAMonocytes (Bld) [#/Vol]1.1 10*3/uLHigh0.0-0.8The Count Includes The [facility] Physician GroupComment on above:Performed By: #### ESR #### [place] [address] USAMonocytes/100 WBC (Bld)12.6 %Normal.The Count Includes The [facility] Physician GroupComment on above:Performed By: #### ESR #### [place] [address] USANeutrophils (Bld) [#/Vol]7.2 10*3/uLNormal1.8-7.7The Count Includes The [facility] Physician GroupComment on above:Performed By: #### ESR #### [place] [address] USANeutrophils/100 WBC (Bld)79.2 %Normal.The Count Includes The [facility] Physician GroupComment on above:Performed By: #### ESR #### [facility] [address] [place] [address] USANRBC%0.1 /100{WBC}Normal0-0.5The Count Includes [facility] Comment on above:Performed By: #### ESR #### [place] [address] USAPlatelet mean volume (Bld) [Entitic vol]7.5 fLNormal 6.6-10.1The Count Includes The [facility] Physician GroupComment on above:Performed By: #### ESR #### [place] [address] USAPlatelets (Bld) [#/Vol]236 10*3/bIZasknq899-754Yrc Count Includes The [facility] Physician GroupComment on above:Performed By: #### ESR #### [place] [address] USARBC (Bld) [#/Vol]3.79 10*6/uLLow3.90-5.60The Count Includes The [facility] Physician GroupComment on above:Performed By: #### ESR #### [facility] [address] [place] [address] USAWBC (Bld) [#/Vol]9.1 10*3/uLNormal4.1-10.5The Count Includes [facility] Physician GroupComment on above:Performed By: #### ESR #### [place] [address] USAComprehensive Metabolic Panelon 91-07-5711Zyjpffe [Mass/Vol]3.6 g/dLNormal3.5-5.7The Count Includes The [facility] Physician GroupComment on above: Performed By: #### ESR #### [place] [address] USAAlbumin/Globulin [Mass ratio]1.4 {ratio}NormalThe Count Includes The [facility] Physician GroupComment on above:Performed By: #### ESR #### [facility] [address] [place] [address] USAALP [Catalytic activity/Vol]73 U/ENwspyg15-967Eyd Count Includes The [facility] Physician GroupComment on above:Performed By: #### ESR #### [place] [address] USAALT [Catalytic activity/Vol]14 U/LNormal7-52The Count Includes [facility] Physician GroupComment on above:Performed By: #### ESR #### [place] [address] USAAnion gap [Moles/Vol]10.5 mmol/LNormal6.0-15.0The Count Includes [facility] Physician GroupComment on above:Performed By: #### ESR #### [place] [address] USAAST [Catalytic activity/Vol]13 U/ULypeiu30-20Ang Count Includes The [facility] Physician GroupComment on above:Performed By: #### ESR #### [facility] [address] [place] [address] USABilirubin [Mass/Vol]0.4 mg/dLNormal0.3-1.0The Count Includes The [facility] Physician GroupComment on above:Performed By: #### ESR #### [facility] [address] [place] [address] USACalcium [Mass/Vol]8.6 mg/dLNormal8.6-10.3The Count Includes [facility] Physician GroupComment on above:Performed By: #### ESR #### [facility] [address] [place] [address] USAChloride [Moles/Vol]107 mmol/BVulczn03-524Qdn Count Includes The [facility] Physician GroupComment on above:Performed By: #### ESR #### [facility] [address] [place] [address] USACO2 [Moles/Vol]24.4 mmol/PKhxpdv04.0-31.0The Count Includes [facility] Physician GroupComment on above:Performed By: #### ESR #### [facility] [address] [place] [address] USACreatinine [Mass/Vol]0.83 mg/dLNormal0.70-1.30The Count Includes The [facility] Physician GroupComment on above:Performed By: #### ESR #### [facility] [address] [place] [address] USACreatinine Clr Calc Rfphksfg49.79NormHalifax Health Medical Center of Dayton[facility] Beach Physician GroupComment on above:Result Comment: PERFORMED BY: [facility] [address] [place] [address] PATHOLOGIST COMMERCIAL CREDIT ANALYST HEBER SHANNON M.D.Performed By: #### ESR #### [facility] [address] [place] [address] USAGFR/1.73 sq M.predicted MDRD (S/P/Bld) [Vol rate/Area] mL/min/{1.73_m2}NormalThe Count Includes [facility] Physician GroupComment on above:Performed By: #### ESR #### [facility] [address] [place] [address] USAGlobulin (S) [Mass/Vol]2.6 g/dLNoECU Health Roan[facility]-Chow[facility] Physician [facility] County HospitalComment on above:Performed By: #### ESR #### [facility] [address] [place] [address] USAGlucose [Mass/Vol]119 mg/fDAoty61-282Aox Count Includes The [facility] Physician GroupComment on above:Result Comment: Random Glucose Reference Range is dependent on time and content of last meal. Glucose of more than 200 mg/dL in a nonstressed, ambulatory subject supports the diagnosis of Diabetes Mellitus. ADA recommended reference rangePerformed By: #### ESR #### [facility] [address] [place] [address] USAPotassium [Moles/Vol]3.9 mmol/LNormal3.5-5.1The Count Includes [facility] Physician GroupComment on above:Performed By: #### ESR #### [facility] [address] [place] [address] USAProtein [Mass/Vol]6.2 g/dLLow6.4-8.9The Count Includes [facility] Physician GroupComment on above:Performed By: #### ESR #### [facility] [address] [place] [address] USASodium [Moles/Vol]138 mmol/EDrxhmx227-119Sou Count Includes The [facility] Physician GroupComment on above:Performed By: #### ESR #### [facility] [address] [place] [address] USAUrea nitrogen [Mass/Vol]19 mg/dLNormal7-25The Count Includes The [facility] Physician GroupComment on above:Performed By: #### ESR #### [facility] [address] [place] [address] USACreatinine [Mass/volume] in Serum or PlasmaOrdered By: Talib Faustin on 57-41-9665Oqxawtptgn [Mass/Vol]Creatinine [Mass/volume] in Serum or Plasma0.70-1.30[facility] CenterEosinophils Auto (Bld) [#/Vol]Ordered By: Talib Faustin on 86-19-6721Amvuezwpgyw (Bld) [#/Vol] Automated eosinophil count0.0-0.45[facility] Eosinophils/100 WBC Auto (Bld)Ordered By: Talib Faustin on 08-16-2024 Eosinophils/100 WBC (Bld)Automated eosinophil %.[facility] CenterErythrocyte distribution width Auto (RBC) [Ratio]Ordered By: Talib Hargrove on 59-01-6706Wnvgrlufnpq distribution width (RBC) [Ratio]Erythrocyte distribution width [Ratio] by Automated jnbzdQegj40.0-14.8[facility] Medical CenterGlobulin Calc (S) [Mass/Vol]Ordered By: Talib Faustin on 60-32-8199Ruspqoii (S) [Mass/Vol]Serum globulin measurement by calculation (mass/volume)[facility] CenterGlucose [Mass/volume] in Serum or PlasmaOrdered By: Talib Faustin on 92-32-7240Mrogbng [Mass/Vol]Glucose [Mass/volume] in Serum or WmogfzVcna55-065BonzqptokLakehealth Beachwood Medical Center Comment on above:ADA recommended reference rangeRandom Glucose Reference Range is dependent on time and content of last meal. Glucose of more than 200 mg/dL in a nonstressed, ambulatory subject supports the diagnosisof Diabetes Mellitus. Hematocrit Auto (Bld) [Volume fraction]Ordered By: Talib Faustin on 08-16-2024 Hematocrit (Bld) [Volume fraction]Hematocrit [Volume Fraction] of Blood by Automated rhqpuBgl35.8-50.0[facility] CenterHemoglobin [Mass/volume] in BloodOrdered By: Talib Faustin on 57-43-0777Yypgmajfbd (Bld) [Mass/Vol]Hemoglobin [Mass/volume] in OvnpgTga11.0-17.0[facility] CenterLeukocytes [#/volume] corrected for nucleated erythrocytes in Blood by Automated counOrdered By: Talib Fuastin on 85-28-8938MTP corrected for nucl RBC Auto (Bld) [#/Vol]Leukocytes [#/volume] corrected for nucleated erythrocytes in Blood by Automated coun4.1-10.5FSt. Charles Hospital Lymphocytes Auto (Bld) [#/Vol]Ordered By: Talib Faustin on 08-16-2024 Lymphocytes (Bld) [#/Vol]Lymphocytes [#/volume] in Blood by Automated countLow 1.00-4.8[facility] CenterLymphocytes/100 WBC Auto (Bld)Ordered By: Talib Faustin on 85-20-7662Viznavbaypr/100 WBC (Bld)Lymphocytes/100 leukocytes in Blood by Automated count.[facility] HospitalH Auto (RBC) [Entitic mass]Ordered By: Talib Faustin on 95-46-4518YGQ (RBC) [Entitic mass]MCH [Entitic mass] by Automated count27.5-35.2FThe Jewish HospitalHC Auto (RBC) [Mass/Vol]Ordered By: Talib Faustin on 62-64-6173LKRP (RBC) [Mass/Vol]MCHC [Mass/volume] by Automated count32.5-35.6FThe Jewish HospitalV Auto (RBC) [Entitic vol]Ordered By: Talib Faustin on 98-59-6870IJD (RBC) [Entitic vol]MCV [Entitic volume] by Automated count83.5-101 [facility] CenterMonocytes Auto (Bld) [#/Vol]Ordered By: rick Hargrove on 79-91-0682Qrijxrjqn (Bld) [#/Vol]Automated blood monocyte countHigh 0.0-0.8[facility] CenterMonocytes/100 WBC Auto (Bld)Ordered By: [facility] Ramin on 64-94-2290Ogcyisizs/100 WBC (Bld)Automated monocyte %. [facility] CenterNeutrophils Auto (Bld) [#/Vol]Ordered By: [facility] Ramin on 66-04-1750Jzjyighrfhn (Bld) [#/Vol]Neutrophils [#/volume] in Blood by Automated count1.8-7.7FSt. Charles HospitalNeutrophils/100 WBC Auto (Bld)Ordered By: [facility] Ramin on 98-73-0786Idyckwiobfc/100 WBC (Bld) Automated neutrophil %.[facility] CenterNo Panel Information Ordered By: [facility] Ramin on 26-63-6455Wfpegruwz GFR (CKD-EPI)> 60.0 mL/Min [facility] CenterPharmacy Creatinine Clearance (Chem59.79 [facility] CenterNucleated erythrocytes [Presence] in Blood by Automated countOrdered By: [facility] Ramin on 29-32-3570Iprmoojzz RBC Auto Ql (Bld)Nucleated erythrocytes [Presence] in Blood by Automated count0-0.5FSt. Charles HospitalPlatelet mean volume Auto (Bld) [Entitic vol]Ordered By: [facility] Ramin on 61-27-8119Yadezsjf mean volume (Bld) [Entitic vol]Platelet mean volume [Entitic volume] in Blood by Automated count6.6-10.1FSt. Charles HospitalPlatelets Auto (Bld) [#/Vol]Ordered By: rick Faustin on 81-87-1327Nszbujxmb (Bld) [#/Vol]Platelets [#/volume] in Blood by Automated -745AmlsyjgdzLakehealth Beachwood Medical CenterPotassium [Moles/volume] in Serum or PlasmaOrdered By: Talib Faustin on 28-65-1692Xrsqaxvne [Moles/Vol]Potassium [Moles/volume] in Serum or Plasma3.5-5.1FSt. Charles HospitalProtein [Mass/volume] in Serum or PlasmaOrdered By: Talib Faustin on 49-69-5831Odxybnr [Mass/Vol]Protein [Mass/volume] in Serum or PlasmaLow6.4-8.9[facility] CenterRBC Auto (Bld) [#/Vol]Ordered By: Talib Faustin on 36-32-9544OJO (Bld) [#/Vol]Erythrocytes [#/volume] in Blood by Automated countLow3.90-5.60 [facility] Jewish Hospitalerum or plasma albumin/globulin mass ratio Ordered By: Talib Faustin on 17-64-6338Qszxitw/Globulin [Mass ratio]Serum or plasma albumin/globulin mass ratioMercy Health – The Jewish Hospitalerum or plasma anion gap determinationOrdered By: Talib Faustin on 07-07-0665Ydora gap [Moles/Vol]Serum or plasma anion gap determination6.0-15.0[facility] Hospitalodium [Moles/volume] in Serum or PlasmaOrdered By: Talib Faustin on 09-52-2950Mwqxgb [Moles/Vol]Sodium [Moles/volume] in Serum or Vhzqim771-205 [facility] CenterUrea nitrogen [Mass/volume] in Serum or Plasma Ordered By: Talib Faustin on 71-82-7074Gipw nitrogen [Mass/Vol]Urea nitrogen [Mass/volume] in Serum or Plasma7-25[facility] CenterWBC Auto (Bld) [#/Vol]Ordered By: Talib Faustin on 74-37-3698GDE (Bld) [#/Vol]Leukocytes [#/volume] in Blood by Automated count4.1-10.5FSt. Charles Hospital Complete Blood Count Auto Diffon 55-75-9704Rcjlfvmzk (Bld) [#/Vol]0.0 10*3/uL Normal0.0-0.2The Count Includes [facility] Physician GroupComment on above:Result Comment: PERFORMED BY: [place] [address] PATHOLOGIST COMMERCIAL CREDIT ANALYST HEBER SHANNON M.D.Performed By: #### CMP, CBC #### [place] [address] USABasophils/100 WBC (Bld)0.4 %Normal.The Count Includes [facility] Physician GroupComment on above:Performed By: #### CMP, CBC #### [place] [address] USAEosinophils (Bld) [#/Vol]0.0 10*3/uLNormal0.0-0.45The Count Includes [facility] Physician GroupComment on above:Performed By: #### CMP, CBC #### [place] [address] USAEosinophils/100 WBC (Bld)0.5 %Normal.The Count Includes [facility] Physician GroupComment on above:Performed By: #### CMP, CBC #### [place] [address] USAErythrocyte distribution width (RBC) [Ratio]14.7 %Normal 12.0-14.8The Count Includes [facility] Physician GroupComment on above:Performed By: #### CMP, CBC #### [place] [address] USAHematocrit (Bld) [Volume fraction]36.9 %Low38.8-50.0The Count Includes [facility] Physician GroupComment on above:Performed By: #### CMP, CBC #### [place] [address] USAHemoglobin (Bld) [Mass/Vol]12.4 g/dLLow13.0-17.0The Count Includes [facility] Physician GroupComment on above:Performed By: #### CMP, CBC #### [place] [address] USALymphocytes (Bld) [#/Vol]0.6 10*3/uLLow1.00-4.8The Count Includes [facility] Physician GroupComment on above:Performed By: #### CMP, CBC #### [facility] [address] [place] [address] USALymphocytes/100 WBC (Bld)7.4 %Normal.The Count Includes [facility] Physician GroupComment on above:Performed By: #### CMP, CBC #### [facility] [address] [place] [address] USAMCH (RBC) [Entitic mass]30.9 hzBffqcb49.5-35.2The Count Includes [facility] Physician GroupComment on above:Performed By: #### CMP, CBC #### [facility] [address] [place] [address] USAMCV (RBC) [Entitic vol]92.2 hYGdmtws87.5-101The Count Includes [facility] Physician GroupComment on above:Performed By: #### CMP, CBC #### [facility] [address] [place] [address] USAMean Corpuscular HGB Conc33.6 g/fDFcoplp88.5-35.6The Count Includes [facility] Physician GroupComment on above:Performed By: #### CMP, CBC #### [facility] [address] [place] [address] USAMonocytes (Bld) [#/Vol]0.8 10*3/uLNormal0.0-0.8The Count Includes [facility] Physician GroupComment on above:Performed By: #### CMP, CBC #### [facility] [address] [place] [address] USAMonocytes/100 WBC (Bld)8.9 %Normal.The Count Includes [facility] Physician GroupComment on above:Performed By: #### CMP, CBC #### [facility] [address] [place] [address] USANeutrophils (Bld) [#/Vol]7.2 10*3/uLNormal1.8-7.7The Count Includes [facility] Physician GroupComment on above:Performed By: #### CMP, CBC #### [facility] [address] [place] [id number] USANeutrophils/100 WBC (Bld)82.8 %Normal.The Count Includes [facility] Physician GroupComment on above:Performed By: #### CMP, CBC #### [facility] [address] [place] [address] USANRBC%0.1 /100{WBC}Normal0-0.5The Count Includes [facility] Comment on above:Performed By: #### CMP, CBC #### [place] [address] USAPlatelet mean volume (Bld) [Entitic vol]7.9 fLNormal 6.6-10.1The Count Includes [facility] Physician GroupComment on above:Performed By: #### CMP, CBC #### [place] [address] USAPlatelets (Bld) [#/Vol]245 10*3/wJNqvbnp113-189Jng Count Includes [facility] Physician GroupComment on above:Performed By: #### CMP, CBC #### [place] [address] USARBC (Bld) [#/Vol]4.00 10*6/uLNormal3.90-5.60The Count Includes [facility] Physician GroupComment on above:Performed By: #### CMP, CBC #### [place] [address] USAWBC (Bld) [#/Vol]8.7 10*3/uLNormal4.1-10.5The Count Includes [facility] Physician GroupComment on above:Performed By: #### CMP, CBC #### [place] [address] USAComprehensive Metabolic Panelon 93-58-6067Nxoorlk [Mass/Vol]3.7 g/dLNormal3.5-5.7The Count Includes [facility] Physician GroupComment on above: Performed By: #### CMP, CBC #### [place] [address] USAAlbumin/Globulin [Mass ratio]1.2 {ratio}NormalThe Count Includes [facility] Physician GroupComment on above:Performed By: #### CMP, CBC #### [place] [address] USAALP [Catalytic activity/Vol]69 U/JYlfbgn97-601Pdh Count Includes [facility] Physician GroupComment on above:Performed By: #### CMP, CBC #### [facility] [address] [place] [address] USAALT [Catalytic activity/Vol]18 U/LNormal7-52The Count Includes [facility] Physician GroupComment on above:Performed By: #### CMP, CBC #### [facility] [address] [place] [address] USAAnion gap [Moles/Vol]10.4 mmol/LNormal6.0-15.0The Count Includes [facility] Physician GroupComment on above:Performed By: #### CMP, CBC #### [facility] [address] [place] [address] USAAST [Catalytic activity/Vol]18 U/PSbpqjx28-81Cba Count Includes The [facility] Physician GroupComment on above:Performed By: #### CMP, CBC #### [facility] [address] [place] [address] USABilirubin [Mass/Vol]0.4 mg/dLNormal0.3-1.0The Count Includes [facility] Physician GroupComment on above:Performed By: #### CMP, CBC #### [facility] [address] [place] [address] USACalcium [Mass/Vol]9.4 mg/dLNormal8.6-10.3The Count Includes [facility] Physician GroupComment on above:Performed By: #### CMP, CBC #### [facility] [address] [place] [address] USAChloride [Moles/Vol]102 mmol/WUcvjrj36-117Gez Count Includes [facility] Physician GroupComment on above:Performed By: #### CMP, CBC #### [facility] [address] [place] [address] USACO2 [Moles/Vol]26.5 mmol/TUwgobw58.0-31.0The Count Includes [facility] Physician GroupComment on above:Performed By: #### CMP, CBC #### [facility] [address] [place] [address] USACreatinine [Mass/Vol]0.91 mg/dLNormal0.70-1.30The Count Includes [facility] Physician GroupComment on above:Performed By: #### CMP, CBC #### [place] [address] USACreatinine Clr Calc Cltirikq59.53NormHalifax Health Medical Center of [facility] Beach Physician GroupComment on above:Result Comment: PERFORMED BY: [place] [address] PATHOLOGIST COMMERCIAL CREDIT ANALYST HEBER SHANNON M.D.Performed By: #### CMP, CBC #### [place] [address] USAGFR/1.73 sq M.predicted MDRD (S/P/Bld) [Vol rate/Area] mL/min/{1.73_m2}NormalThe Count Includes [facility] Physician GroupComment on above:Performed By: #### CMP, CBC #### [place] [address] USAGlobulin (S) [Mass/Vol]3.0 g/dLNoECU Health Roanoke-Chowan Hospital Physician GroupComment on above:Performed By: #### CMP, CBC #### [place] [address] USAGlucose [Mass/Vol]163 mg/cSDcwm03-233Bsg Count Includes [facility] Physician GroupComment on above:Result Comment: Random Glucose Reference Range is dependent on time and content of last meal. Glucose of more than 200 mg/dL in a nonstressed, ambulatory subject supports the diagnosis of Diabetes Mellitus. ADA recommended reference rangePerformed By: #### CMP, CBC #### [place] [address] USAPotassium [Moles/Vol]3.9 mmol/LNormal3.5-5.1The Count Includes [facility] Physician GroupComment on above:Performed By: #### CMP, CBC #### [place] [address] USAProtein [Mass/Vol]6.7 g/dLNormal6.4-8.9The Count Includes [facility] Physician GroupComment on above:Performed By: #### CMP, CBC #### [address] [place] [address] USASodium [Moles/Vol]135 mmol/OIqy501-036Rdh Count Includes [facility] Physician GroupComment on above:Performed By: #### CMP, CBC #### [place] [address] USAUrea nitrogen [Mass/Vol]31 mg/dLHigh7-25The Count Includes [facility] Physician GroupComment on above:Performed By: #### CMP, CBC #### [place] [address] USAComplete Blood Count Auto Diffon 57-47-2099Rxeebbfmw (Bld) [#/Vol]0.1 10*3/uLNormal0.0-0.2The Count Includes [facility] Physician GroupComment on above: Result Comment: PERFORMED BY: [place] [address] PATHOLOGIST COMMERCIAL CREDIT ANALYST HEBER SHANNON M.D.Performed By: #### MG, SCAN CBC, CMP #### [place] [address] USABasophils/100 WBC (Bld)1.0 %Normal.The Count Includes [facility] Physician GroupComment on above:Performed By: #### MG, SCAN CBC, CMP #### [place] [address] USAEosinophils (Bld) [#/Vol]0.0 10*3/uLNormal0.0-0.45The Count Includes [facility] Physician GroupComment on above:Performed By: #### MG, SCAN CBC, CMP #### [place] [address] USAEosinophils/100 WBC (Bld)0.6 %Normal.The Count Includes [facility] Physician GroupComment on above:Performed By: #### MG, SCAN CBC, CMP #### [place] [address] USAErythrocyte distribution width (RBC) [Ratio]14.0 %Normal 12.0-14.8The Count Includes [facility] Physician GroupComment on above:Performed By: #### MG, SCAN CBC, CMP #### [place] [address] USAHematocrit (Bld) [Volume fraction]35.5 %Low38.8-50.0The Count Includes [facility] Physician GroupComment on above:Performed By: #### MG, SCAN CBC, CMP #### [place] [address] USAHemoglobin (Bld) [Mass/Vol]12.1 g/dLLow13.0-17.0The Count Includes [facility] Physician GroupComment on above:Performed By: #### MG, SCAN CBC, CMP #### [place] [address] USALymphocytes (Bld) [#/Vol]0.6 10*3/uLLow1.00-4.8The Count Includes [facility] Physician GroupComment on above:Performed By: #### MG, SCAN CBC, CMP #### [place] [address] USALymphocytes/100 WBC (Bld)10.3 %Normal.The Count Includes [facility] Physician GroupComment on above:Performed By: #### MG, SCAN CBC, CMP #### [place] [address] USAMCH (RBC) [Entitic mass]31.4 ncFilfok53.5-35.2The Count Includes [facility] Physician GroupComment on above:Performed By: #### MG, SCAN CBC, CMP #### [place] [address] USAMCV (RBC) [Entitic vol]92.2 oSDglrvc21.5-101The Count Includes [facility] Physician GroupComment on above:Performed By: #### MG, SCAN CBC, CMP #### [place] [address] USAMean Corpuscular HGB Conc34.0 g/iJQjzfyb55.5-35.6The Count Includes [facility] Physician GroupComment on above:Performed By: #### MG, SCAN CBC, CMP #### [place] [address] USAMonocytes (Bld) [#/Vol]0.9 10*3/uLHigh0.0-0.8The Count Includes [facility] Physician GroupComment on above:Performed By: #### MG, SCAN CBC, CMP #### [facility] [address] [place] [address] USAMonocytes/100 WBC (Bld)14.8 %Normal.The Count Includes [facility] Physician GroupComment on above:Performed By: #### MG, SCAN CBC, CMP #### [facility] [address] [place] [address] USANeutrophils (Bld) [#/Vol]4.5 10*3/uLNormal1.8-7.7The Count Includes [facility] Physician GroupComment on above:Performed By: #### MG, SCAN CBC, CMP #### [place] [address] USANeutrophils/100 WBC (Bld)73.3 %Normal.The Count Includes [facility] Physician GroupComment on above:Performed By: #### MG, SCAN CBC, CMP #### [place] [address] USANRBC%0.1 /100{WBC}Normal0-0.5The Count Includes [facility] Comment on above:Performed By: #### MG, SCAN CBC, CMP #### [facility] [address] [place] [address] USAPlatelet mean volume (Bld) [Entitic vol]7.4 fLNormal 6.6-10.1The Count Includes [facility] Physician GroupComment on above:Performed By: #### MG, SCAN CBC, CMP #### [place] [address] USAPlatelets (Bld) [#/Vol]215 10*3/oYVmskpn555-727Gdb Count Includes [facility] Physician GroupComment on above:Performed By: #### MG, SCAN CBC, CMP #### [place] [address] USARBC (Bld) [#/Vol]3.85 10*6/uLLow3.90-5.60The Count Includes [facility] Physician GroupComment on above:Performed By: #### MG, SCAN CBC, CMP #### [facility] [address] [place] [address] USAWBC (Bld) [#/Vol]6.2 10*3/uLNormal4.1-10.5The Count Includes [facility] Physician GroupComment on above:Performed By: #### MG, SCAN CBC, CMP #### [place] [address] USAComprehensive Metabolic Panelon 20-38-9202Boancni [Mass/Vol]3.6 g/dLNormal3.5-5.7The Count Includes [facility] Physician GroupComment on above: Performed By: #### MG, SCAN CBC, CMP #### [place] [address] USAAlbumin/Globulin [Mass ratio]1.3 {ratio}NormalThe Count Includes [facility] Physician GroupComment on above:Performed By: #### MG, SCAN CBC, CMP #### [place] [address] USAALP [Catalytic activity/Vol]75 U/XDmmekk59-266Vqy Count Includes [facility] Physician GroupComment on above:Performed By: #### MG, SCAN CBC, CMP #### [place] [address] USAALT [Catalytic activity/Vol]12 U/LNormal7-52The Count Includes [facility] Physician GroupComment on above:Performed By: #### MG, SCAN CBC, CMP #### [place] [address] USAAnion gap [Moles/Vol]10.1 mmol/LNormal6.0-15.0The Count Includes [facility] Physician GroupComment on above:Performed By: #### MG, SCAN CBC, CMP #### [place] [address] USAAST [Catalytic activity/Vol]13 U/ZZovyld44-29Erd Count Includes [facility] Physician GroupComment on above:Performed By: #### MG, SCAN CBC, CMP #### [facility] [address] [place] [address] USABilirubin [Mass/Vol]0.5 mg/dLNormal0.3-1.0The Count Includes [facility] Physician GroupComment on above:Performed By: #### MG, SCAN CBC, CMP #### [place] [address] USACalcium [Mass/Vol]8.5 mg/dLLow8.6-10.3The Count Includes [facility] Physician GroupComment on above:Performed By: #### MG, SCAN CBC, CMP #### [place] [address] USAChloride [Moles/Vol]103 mmol/QHsofor33-560Skj Count Includes [facility] Physician [facility] HospitalComment on above:Performed By: #### MG, SCAN CBC, CMP #### [place] [address] USACO2 [Moles/Vol]27.1 mmol/XGhhtss94.0-31.0The Count Includes [facility] Physician GroupComment on above:Performed By: #### MG, SCAN CBC, CMP #### [place] [address] USACreatinine [Mass/Vol]1.03 mg/dLNormal0.70-1.30The Count Includes [facility] Physician GroupComment on above:Performed By: #### MG, SCAN CBC, CMP #### [place] [address] USACreatinine Clr Calc Zifruavu33.18NormalThe Count Includes [facility] Physician GroupComment on above:Result Comment: PERFORMED BY: [place] [address] PATHOLOGIST COMMERCIAL CREDIT ANALYST HEBER SHANNON M.D.Performed By: #### MG, SCAN CBC, CMP #### [place] [address] USAGFR/1.73 sq M.predicted MDRD (S/P/Bld) [Vol rate/Area] mL/min/{1.73_m2}NormalThe Count Includes [facility] Physician GroupComment on above:Performed By: #### MG, SCAN CBC, CMP #### [place] [address] USAGlobulin (S) [Mass/Vol]2.7 g/dLNormalThe Count Includes [facility] Physician GroupComment on above:Performed By: #### MG, SCAN CBC, CMP #### [facility] [address] [place] [address] USAGlucose [Mass/Vol]120 mg/lLOpsw64-808Xfr Count Includes [facility] Physician GroupComment on above:Result Comment: Random Glucose Reference Range is dependent on time and content of last meal. Glucose of more than 200 mg/dL in a nonstressed, ambulatory subject supports the diagnosis of Diabetes Mellitus. ADA recommended reference rangePerformed By: #### MG, SCAN CBC, CMP #### [facility] [address] [place] [address] USAPotassium [Moles/Vol]4.2 mmol/LNormal3.5-5.1The Count Includes [facility] Physician GroupComment on above:Performed By: #### MG, SCAN CBC, CMP #### [facility] [address] [place] [address] USAProtein [Mass/Vol]6.3 g/dLLow6.4-8.9The Count Includes [facility] Physician GroupComment on above:Performed By: #### MG, SCAN CBC, CMP #### [facility] [address] [place] [address] USASodium [Moles/Vol]136 mmol/MDpftno880-539Loi Count Includes [facility] Physician GroupComment on above:Performed By: #### MG, SCAN CBC, CMP #### [facility] [address] [place] [address] USAUrea nitrogen [Mass/Vol]35 mg/dLHigh7-25The Count Includes [facility] Physician GroupComment on above:Performed By: #### MG, SCAN CBC, CMP #### [facility] [address] [place] [address] USAAlanine aminotransferase [Enzymatic activity/volume] in Serum or PlasmaOrdered By: Talib Faustin on 14-88-5173UZY [Catalytic activity/Vol]Alanine aminotransferase [Enzymatic activity/volume] in Serum or PlasmaLakehealth Beachwood Medical CenterAlbumin [Mass/volume] in Serum or Plasma by Bromocresol green (BCG) dye binding methoOrdered By: Talib Faustin on 66-23-7768Xtmrsxc BCG dye [Mass/Vol]Albumin [Mass/volume] in Serum or Plasma by Bromocresol green (BCG) dye binding metho3.5-5.7FSt. Charles HospitalAlkaline phosphatase [Enzymatic activity/volume] in Serum or PlasmaOrdered By: Talib Faustin on 68-17-7058WXZ [Catalytic activity/Vol]Alkaline phosphatase [Enzymatic activity/volume] in Serum or Qhfsgr03-460SymhdwoyeLakehealth Beachwood Medical CenterAspartate aminotransferase [Enzymatic activity/volume] in Serum or Plasma Ordered By: Talib Faustin on 88-53-6955AGE [Catalytic activity/Vol]Aspartate aminotransferase [Enzymatic activity/volume] in Serum or Exvbjq14-49EjgjuvskaLakehealth Beachwood Medical CenterBasophils Auto (Bld) [#/Vol]Ordered By: Talib Faustin on 26-77-6848Qpxhvxgsx (Bld) [#/Vol]Automated basophil count0.0-0.2FSt. Charles HospitalBasophils/100 WBC Auto (Bld)Ordered By: Talib Faustin on 58-99-9922Jwilcacrp/100 WBC (Bld)Automated basophil %.[facility] Medical CenterBilirubin.total [Mass/volume] in Serum or PlasmaOrdered By: Talib Faustin on 19-05-3518Keijkqzjb [Mass/Vol]Bilirubin.total [Mass/volume] in Serum or Plasma0.3-1.0[facility] CenterCalcium [Mass/volume] in Serum or PlasmaOrdered By: Talib Faustin on 51-89-8817Yhuvyza [Mass/Vol]Calcium [Mass/volume] in Serum or Plasma8.6-10.3FSt. Charles HospitalCarbon dioxide, total [Moles/volume] in Serum or PlasmaOrdered By: Talib Faustin on 82-26-3834CX7 [Moles/Vol]Carbon dioxide, total [Moles/volume] in Serum or Plasma 21.0-31.0[facility] CenterChloride [Moles/volume] in Serum or PlasmaOrdered By: Talib Faustin on 66-42-5093Qsczwxlh [Moles/Vol]Chloride [Moles/volume] in Serum or Owvdpm14-081OmiszrfxaLakehealth Beachwood Medical CenterComplete Blood Count Auto Diffon 73-10-9628Fjhphjswb (Bld) [#/Vol]0.1 10*3/uLNormal 0.0-0.2The Count Includes [facility] Physician GroupComment on above:Result Comment: PERFORMED BY: [place] [address] PATHOLOGIST COMMERCIAL CREDIT ANALYST HEBER SHANNON M.D.Performed By: #### ESR #### [place] [address] USABasophils/100 WBC (Bld)1.0 %Normal.The Count Includes [facility] Physician GroupComment on above:Performed By: #### ESR #### [place] [address] USAEosinophils (Bld) [#/Vol]0.1 10*3/uLNormal0.0-0.45The Count Includes [facility] Physician GroupComment on above:Performed By: #### ESR #### [place] [address] USAEosinophils/100 WBC (Bld)1.4 %Normal.The Count Includes [facility] Physician GroupComment on above:Performed By: #### ESR #### [place] [address] USAErythrocyte distribution width (RBC) [Ratio]13.6 %Normal 12.0-14.8The Count Includes [facility] Physician GroupComment on above:Performed By: #### ESR #### [place] [address] USAHematocrit (Bld) [Volume fraction]35.4 %Low38.8-50.0The Count Includes [facility] Physician GroupComment on above:Performed By: #### ESR #### [place] [address] USAHemoglobin (Bld) [Mass/Vol]12.0 g/dLLow13.0-17.0The Count Includes [facility] Physician GroupComment on above:Performed By: #### ESR #### [facility] [address] [place] [address] USALymphocytes (Bld) [#/Vol]0.9 10*3/uLLow1.00-4.8The Count Includes The [facility] Physician GroupComment on above:Performed By: #### ESR #### [facility] [address] [place] [address] USALymphocytes/100 WBC (Bld)13.0 %Normal.The Count Includes The [facility] Physician GroupComment on above:Performed By: #### ESR #### [facility] [address] [place] [address] USAMCH (RBC) [Entitic mass]31.1 yuHwmnuk23.5-35.2The Count Includes The [facility] Physician GroupComment on above:Performed By: #### ESR #### [place] [address] USAMCV (RBC) [Entitic vol]91.5 rMSpbuuo97.5-101The Count Includes The [facility] Physician GroupComment on above:Performed By: #### ESR #### [place] [address] USAMean Corpuscular HGB Conc34.0 g/uTJykzpt38.5-35.6The Count Includes [facility] Physician GroupComment on above:Performed By: #### ESR #### [place] [address] USAMonocytes (Bld) [#/Vol]0.7 10*3/uLNormal0.0-0.8The Count Includes The [facility] Physician GroupComment on above:Performed By: #### ESR #### [facility] [address] [place] [id number] USAMonocytes/100 WBC (Bld)9.8 %Normal.The Count Includes The [facility] Physician GroupComment on above:Performed By: #### ESR #### [address] [address] USANeutrophils (Bld) [#/Vol]5.1 10*3/uLNormal1.8-7.7The Count Includes The [facility] Physician GroupComment on above:Performed By: #### ESR #### [facility] [address] [place] [id number] USANeutrophils/100 WBC (Bld)74.8 %Normal.The Count Includes The [facility] Physician GroupComment on above:Performed By: #### ESR #### [facility] [address] [place] [address] USANRBC%0.1 /100{WBC}Normal0-0.5The Count Includes [facility] Comment on above:Performed By: #### ESR #### [facility] [address] [place] [address] USAPlatelet mean volume (Bld) [Entitic vol]7.4 fLNormal 6.6-10.1The Count Includes The [facility] Physician GroupComment on above:Performed By: #### ESR #### [place] [address] USAPlatelets (Bld) [#/Vol]217 10*3/aQCvdyul356-899Mzi Count Includes The [facility] Physician GroupComment on above:Performed By: #### ESR #### [facility] [address] [place] [address] USARBC (Bld) [#/Vol]3.87 10*6/uLLow3.90-5.60The Count Includes The [facility] Physician GroupComment on above:Performed By: #### ESR #### [facility] [address] [place] [address] USAWBC (Bld) [#/Vol]6.9 10*3/uLNormal4.1-10.5The Count Includes The [facility] Physician GroupComment on above:Performed By: #### ESR #### [facility] [address] [place] [address] USAComprehensive Metabolic Panelon 83-60-2199Wtabulk [Mass/Vol]3.7 g/dLNormal3.5-5.7The Count Includes The [facility] Physician GroupComment on above: Performed By: #### ESR #### [facility] [address] [place] [address] USAAlbumin/Globulin [Mass ratio]1.3 {ratio}NormalThe Count Includes The [facility] Physician GroupComment on above:Performed By: #### ESR #### [facility] [address] [place] [address] USAALP [Catalytic activity/Vol]80 U/BAcpwha62-219Fjt Count Includes The [facility] Physician GroupComment on above:Performed By: #### ESR #### [facility] [address] [place] [address] USAALT [Catalytic activity/Vol]13 U/LNormal7-52The Count Includes The [facility] Physician GroupComment on above:Performed By: #### ESR #### [facility] [address] [place] [address] USAAnion gap [Moles/Vol]9.4 mmol/LNormal6.0-15.0The Count Includes The [facility] Physician GroupComment on above:Performed By: #### ESR #### [facility] [address] [place] [address] USAAST [Catalytic activity/Vol]14 U/FAgqcqo12-99Oni Count Includes The [facility] Physician GroupComment on above:Performed By: #### ESR #### [place] [address] USABilirubin [Mass/Vol]0.5 mg/dLNormal0.3-1.0The Count Includes The [facility] Physician GroupComment on above:Performed By: #### ESR #### [place] [address] USACalcium [Mass/Vol]8.9 mg/dLNormal8.6-10.3The Count Includes The [facility] Physician GroupComment on above:Performed By: #### ESR #### [facility] [address] [place] [address] USAChloride [Moles/Vol]104 mmol/LVltuxy78-021Vdz Count Includes The [facility] Physician GroupComment on above:Performed By: #### ESR #### [place] [address] USACO2 [Moles/Vol]26.8 mmol/XDljlst57.0-31.0The Count Includes The [facility] Physician GroupComment on above:Performed By: #### ESR #### [facility] [address] [place] [address] USACreatinine [Mass/Vol]0.87 mg/dLNormal0.70-1.30The Count Includes The [facility] Physician GroupComment on above:Performed By: #### ESR #### [place] [address] USACreatinine Clr Calc Lmxidbhr54.04NormHalifax Health Medical Center of [facility] Beach Physician GroupComment on above:Result Comment: PERFORMED BY: [place] [address] PATHOLOGIST COMMERCIAL CREDIT ANALYST HEBER SHANNON M.D.Performed By: #### ESR #### [place] [address] USAGFR/1.73 sq M.predicted MDRD (S/P/Bld) [Vol rate/Area] mL/min/{1.73_m2}NormalThe Count Includes The [facility] Physician GroupComment on above:Performed By: #### ESR #### [place] [address] USAGlobulin (S) [Mass/Vol]2.9 g/dLNoECU Health Roan[facility]-Chowan Hospital Physician GroupComment on above:Performed By: #### ESR #### [place] [address] USAGlucose [Mass/Vol]107 mg/eZIplu92-103Pxa Count Includes The [facility] Physician GroupComment on above:Result Comment: Random Glucose Reference Range is dependent on time and content of last meal. Glucose of more than 200 mg/dL in a nonstressed, ambulatory subject supports the diagnosis of Diabetes Mellitus. ADA recommended reference rangePerformed By: #### ESR #### [place] [address] USAPotassium [Moles/Vol]4.2 mmol/LNormal3.5-5.1The Count Includes The [facility] Physician GroupComment on above:Performed By: #### ESR #### [place] [address] USAProtein [Mass/Vol]6.6 g/dLNormal6.4-8.9The Count Includes The [facility] Physician GroupComment on above:Performed By: #### ESR #### [facility] [address] [place] [address] USASodium [Moles/Vol]136 mmol/UCnrrpc560-678Nhy Count Includes The [facility] Physician GroupComment on above:Performed By: #### ESR #### [facility] [address] [place] [address] USAUrea nitrogen [Mass/Vol]30 mg/dLHigh7-25The Count Includes The [facility] Physician GroupComment on above:Performed By: #### ESR #### [facility] [address] [place] [address] USACreatinine [Mass/volume] in Serum or PlasmaOrdered By: Talib Faustin on 53-64-0786Fsgiwxcnut [Mass/Vol]Creatinine [Mass/volume] in Serum or Plasma0.70-1.30[facility] CenterEosinophils Auto (Bld) [#/Vol]Ordered By: Talib Faustin on 10-80-2904Tkcpvvmkuwt (Bld) [#/Vol] Automated eosinophil count0.0-0.45[facility] Eosinophils/100 WBC Auto (Bld)Ordered By: rick Faustin on 07-26-2024 Eosinophils/100 WBC (Bld)Automated eosinophil %.[facility] CenterErythrocyte distribution width Auto (RBC) [Ratio]Ordered By: Talib Hargrove on 36-73-5741Jfdjyivlkjl distribution width (RBC) [Ratio]Erythrocyte distribution width [Ratio] by Automated count12.0-14.8[facility] CenterGlobulin Calc (S) [Mass/Vol]Ordered By: Talib Faustin on 07-26-2024 Globulin (S) [Mass/Vol]Serum globulin measurement by calculation (mass/volume) [facility] CenterGlucose [Mass/volume] in Serum or PlasmaOrdered By: Talib Faustin on 54-90-9689Aevsdkg [Mass/Vol]Glucose [Mass/volume] in Serum or YssbktIoep42-095GrlyvtvrlLakehealth Beachwood Medical CenterComment on above:ADA recommended reference rangeRandom Glucose Reference Range is dependent on time and content of last meal. Glucose of more than 200 mg/dL in a nonstressed, ambulatory subject supports the diagnosisof Diabetes Mellitus.Hematocrit Auto (Bld) [Volume fraction]Ordered By: Talib Faustin on 29-76-0326Clutcfsivq (Bld) [Volume fraction]Hematocrit [Volume Fraction] of Blood by Automated countLow 38.8-50.0[facility] CenterHemoglobin [Mass/volume] in Blood Ordered By: Talib Faustin on 04-81-9639Unfxycofau (Bld) [Mass/Vol]Hemoglobin [Mass/volume] in TztynNes39.0-17.0[facility] CenterLeukocytes [#/volume] corrected for nucleated erythrocytes in Blood by Automated coun Ordered By: Talib Faustin on 49-10-6837YBF corrected for nucl RBC Auto (Bld) [#/Vol]Leukocytes [#/volume] corrected for nucleated erythrocytes in Blood by Automated coun4.1-10.5FSt. Charles HospitalLymphocytes Auto (Bld) [#/Vol]Ordered By: Talib Faustin on 03-49-2316Sugoaluwcjk (Bld) [#/Vol] Lymphocytes [#/volume] in Blood by Automated countLow1.00-4.8[facility] CenterLymphocytes/100 WBC Auto (Bld)Ordered By: Talib Faustin on 50-88-2886Viemvalwdbf/100 WBC (Bld)Lymphocytes/100 leukocytes in Blood by Automated count.[facility] CenterMCH Auto (RBC) [Entitic mass] Ordered By: Talib Faustin on 10-42-0226VZS (RBC) [Entitic mass]MCH [Entitic mass] by Automated count27.5-35.2FSt. Charles HospitalMCHC Auto (RBC) [Mass/Vol]Ordered By: Talib Faustin on 38-03-1328YJPJ (RBC) [Mass/Vol] MCHC [Mass/volume] by Automated count32.5-35.6FSt. Charles Hospital MCV Auto (RBC) [Entitic vol]Ordered By: Talib Faustin on 86-56-7295SYO (RBC) [Entitic vol]MCV [Entitic volume] by Automated count83.5-101[facility] CenterMonocytes Auto (Bld) [#/Vol]Ordered By: Talib Faustin on 44-94-5243Urcjrwizh (Bld) [#/Vol]Automated blood monocyte count0.0-0.8[facility] CenterMonocytes/100 WBC Auto (Bld)Ordered By: Talib Faustin on 71-96-9931Uypwpeivc/100 WBC (Bld)Automated monocyte %.[facility] CenterNeutrophils Auto (Bld) [#/Vol]Ordered By: rick Faustin on 21-47-2633Rjnfgtwssdb (Bld) [#/Vol]Neutrophils [#/volume] in Blood by Automated count1.8-7.7FSt. Charles HospitalNeutrophils/100 WBC Auto (Bld) Ordered By: rick Faustin on 97-30-7588Aizqlbcyqxa/100 WBC (Bld)Automated neutrophil %.[facility] CenterNo Panel InformationOrdered By: Talib Faustin on 39-87-8570Hxfwrojvw GFR (CKD-EPI)> 60.0 mL/MinLakehealth Beachwood Medical CenterPharmacy Creatinine Clearance (Chem57.04[facility] Medical CenterNucleated erythrocytes [Presence] in Blood by Automated countOrdered By: Talib Faustin on 50-07-3327Tmeilxdxs RBC Auto Ql (Bld) Nucleated erythrocytes [Presence] in Blood by Automated count0-0.5FSt. Charles HospitalPlatelet mean volume Auto (Bld) [Entitic vol]Ordered By: Talib Faustin on 49-57-7509Htzuazkk mean volume (Bld) [Entitic vol]Platelet mean volume [Entitic volume] in Blood by Automated count6.6-10.1FSt. Charles HospitalPlatelets Auto (Bld) [#/Vol]Ordered By: Talib Faustin on 50-44-7347Bpplcfvfi (Bld) [#/Vol]Platelets [#/volume] in Blood by Automated -916TgecsnounLakehealth Beachwood Medical CenterPotassium [Moles/volume] in Serum or PlasmaOrdered By: Talib Faustin on 44-12-9108Hbcjbxgcr [Moles/Vol]Potassium [Moles/volume] in Serum or Plasma3.5-5.1FSt. Charles HospitalProtein [Mass/volume] in Serum or PlasmaOrdered By: Talib Faustin on 40-71-1411Kxlgvwc [Mass/Vol]Protein [Mass/volume] in Serum or Plasma6.4-8.9[facility] Medical CenterRBC Auto (Bld) [#/Vol]Ordered By: Talib Faustin on 66-94-2221HYA (Bld) [#/Vol]Erythrocytes [#/volume] in Blood by Automated countLow3.90-5.60 [facility] Hospitalerum or plasma albumin/globulin mass ratio Ordered By: Talib Faustin on 84-38-7213Iuvoqdk/Globulin [Mass ratio]Serum or plasma albumin/globulin mass ratioMercy Health – The Jewish Hospitalerum or plasma anion gap determinationOrdered By: Talib Faustin on 16-84-3872Qlmgt gap [Moles/Vol]Serum or plasma anion gap determination6.0-15.0[facility] Hospitalodium [Moles/volume] in Serum or PlasmaOrdered By: Talib Faustin on 95-77-9004Geeqrv [Moles/Vol]Sodium [Moles/volume] in Serum or Crbtsi468-484 [facility] CenterUrea nitrogen [Mass/volume] in Serum or Plasma Ordered By: Talib Faustin on 92-86-4100Wrwh nitrogen [Mass/Vol]Urea nitrogen [Mass/volume] in Serum or PlasmaHigh7-25[facility] CenterWBC Auto (Bld) [#/Vol]Ordered By: Talib Faustin on 51-07-8753JPP (Bld) [#/Vol] Leukocytes [#/volume] in Blood by Automated count4.1-10.5FSt. Charles HospitalComplete Blood Count Auto Diffon 44-48-5799Tirlnmpwh (Bld) [#/Vol] 0.0 10*3/uLNormal0.0-0.2The Count Includes [facility] Physician GroupComment on above:Result Comment: PERFORMED BY: [facility] [address] [place] [address] PATHOLOGIST COMMERCIAL CREDIT ANALYST HEBER SHANNON M.D.Performed By: #### MG, CMP, CBC #### [place] [address] USAPerformed By: #### MG, SCAN CBC, CMP #### [place] [address] USABasophils/100 WBC (Bld)0.5 %Normal.The Count Includes [facility] Physician GroupComment on above:Performed By: #### MG, CMP, CBC #### [place] [address] USAPerformed By: #### MG, SCAN CBC, CMP #### [place] [address] USAEosinophils (Bld) [#/Vol]0.1 10*3/uLNormal0.0-0.45The Count Includes [facility] Physician GroupComment on above:Performed By: #### MG, CMP, CBC #### [place] [address] USAPerformed By: #### MG, SCAN CBC, CMP #### [place] [address] USAEosinophils/100 WBC (Bld)1.4 %Normal.The Count Includes [facility] Physician GroupComment on above:Performed By: #### MG, CMP, CBC #### [place] [address] USAPerformed By: #### MG, SCAN CBC, CMP #### [place] [address] USAErythrocyte distribution width (RBC) [Ratio]13.4 %Normal 12.0-14.8The Count Includes [facility] Physician GroupComment on above:Performed By: #### MG, CMP, CBC #### [place] [address] USAPerformed By: #### MG, SCAN CBC, CMP #### [place] [address] USAHematocrit (Bld) [Volume fraction]35.7 %Low38.8-50.0The Count Includes [facility] Physician GroupComment on above:Performed By: #### MG, CMP, CBC #### [facility] [address] [place] [address] USAPerformed By: #### MG, SCAN CBC, CMP #### [place] [address] USAHemoglobin (Bld) [Mass/Vol]12.0 g/dLLow13.0-17.0The Count Includes [facility] Physician GroupComment on above:Performed By: #### MG, CMP, CBC #### [place] [address] USAPerformed By: #### MG, SCAN CBC, CMP #### [place] [address] USALymphocytes (Bld) [#/Vol]1.3 10*3/uLNormal1.00-4.8The Count Includes [facility] Physician GroupComment on above:Performed By: #### MG, CMP, CBC #### [place] [address] USAPerformed By: #### MG, SCAN CBC, CMP #### [place] [address] USALymphocytes/100 WBC (Bld)11.6 %Normal.The Count Includes [facility] Physician GroupComment on above:Performed By: #### MG, CMP, CBC #### [facility] [address] [place] [address] USAPerformed By: #### MG, SCAN CBC, CMP #### [facility] [address] [place] [address] USAMCH (RBC) [Entitic mass]30.7 zmWqnuws19.5-35.2The Count Includes [facility] Physician GroupComment on above:Performed By: #### MG, CMP, CBC #### [place] [address] USAPerformed By: #### MG, SCAN CBC, CMP #### [address] [address] USAMCV (RBC) [Entitic vol]91.3 jJYdxbic09.5-101The Count Includes [facility] Physician GroupComment on above:Performed By: #### MG, CMP, CBC #### [place] [address] USAPerformed By: #### MG, SCAN CBC, CMP #### [place] [address] USAMean Corpuscular HGB Conc33.7 g/xQPbhfih96.5-35.6The Count Includes [facility] Physician GroupComment on above:Performed By: #### MG, CMP, CBC #### [place] [address] USAPerformed By: #### MG, SCAN CBC, CMP #### [place] [address] USAMonocytes (Bld) [#/Vol]0.8 10*3/uLNormal0.0-0.8The Count Includes [facility] Physician GroupComment on above:Performed By: #### MG, CMP, CBC #### [place] [address] USAPerformed By: #### MG, SCAN CBC, CMP #### [place] [address] USAMonocytes/100 WBC (Bld)7.4 %Normal.The Count Includes [facility] Physician GroupComment on above:Performed By: #### MG, CMP, CBC #### [place] [address] USAPerformed By: #### MG, SCAN CBC, CMP #### [place] [address] USANeutrophils (Bld) [#/Vol]8.7 10*3/uLHigh1.8-7.7The Count Includes [facility] Physician GroupComment on above:Performed By: #### MG, CMP, CBC #### [place] [address] USAPerformed By: #### MG, SCAN CBC, CMP #### [place] [address] USANeutrophils/100 WBC (Bld)79.1 %Normal.The Count Includes [facility] Physician GroupComment on above:Performed By: #### MG, CMP, CBC #### [place] [address] USAPerformed By: #### MG, SCAN CBC, CMP #### [facility] [address] [place] [address] USANRBC%0.1 /100{WBC}Normal0-0.5The Count Includes [facility] Comment on above:Performed By: #### MG, CMP, CBC #### [facility] [address] [place] [address] USAPerformed By: #### MG, SCAN CBC, CMP #### [place] [address] USAPlatelet mean volume (Bld) [Entitic vol]7.9 fLNormal 6.6-10.1The Count Includes [facility] Physician GroupComment on above:Performed By: #### MG, CMP, CBC #### [place] [address] USAPerformed By: #### MG, SCAN CBC, CMP #### [place] [address] USAPlatelets (Bld) [#/Vol]179 10*3/cDHaegfh295-462Cax Count Includes [facility] Physician GroupComment on above:Performed By: #### MG, CMP, CBC #### [place] [address] USAPerformed By: #### MG, SCAN CBC, CMP #### [facility] [address] [place] [address] USARBC (Bld) [#/Vol]3.91 10*6/uLNormal3.90-5.60The Count Includes [facility] Physician GroupComment on above:Performed By: #### MG, CMP, CBC #### [place] [address] USAPerformed By: #### MG, SCAN CBC, CMP #### [facility] [address] [place] [address] USAWBC (Bld) [#/Vol]11.0 10*3/uLHigh4.1-10.5The Count Includes [facility] Physician GroupComment on above:Performed By: #### MG, CMP, CBC #### [facility] [address] [place] [address] USAPerformed By: #### MG, SCAN CBC, CMP #### [facility] [address] [place] [address] USAComprehensive Metabolic Panelon 36-32-2575Shpmjgi [Mass/Vol]3.8 g/dLNormal3.5-5.7The Count Includes [facility] Physician GroupComment on above: Performed By: #### MG, CMP, CBC #### [place] [address] USAPerformed By: #### UA #### [place] [address] USAAlbumin/Globulin [Mass ratio]1.5 {ratio}NormalThe Count Includes [facility] Physician GroupComment on above:Performed By: #### MG, CMP, CBC #### [facility] [address] [place] [address] USAPerformed By: #### UA #### [place] [address] USAALP [Catalytic activity/Vol]84 U/PNpwzro76-730Gna Count Includes [facility] Physician GroupComment on above:Performed By: #### MG, CMP, CBC #### [facility] [address] [place] [address] USAPerformed By: #### UA #### [facility] [address] [place] [address] USAALT [Catalytic activity/Vol]12 U/LNormal7-52The Count Includes [facility] Physician GroupComment on above:Performed By: #### MG, CMP, CBC #### [facility] [address] [place] [address] USAPerformed By: #### UA #### [facility] [address] [place] [address] USAAnion gap [Moles/Vol]10.1 mmol/LNormal6.0-15.0The Count Includes [facility] Physician GroupComment on above:Performed By: #### MG, CMP, CBC #### [facility] [address] [place] [address] USAPerformed By: #### UA #### [facility] [address] [place] [address] USAAST [Catalytic activity/Vol]11 U/BAet69-02Ilw Count Includes [facility] Physician GroupComment on above:Performed By: #### MG, CMP, CBC #### [facility] [address] [place] [address] USAPerformed By: #### UA #### [place] [address] USABilirubin [Mass/Vol]0.6 mg/dLNormal0.3-1.0The Count Includes [facility] Physician GroupComment on above:Performed By: #### MG, CMP, CBC #### [place] [address] USAPerformed By: #### UA #### [place] [address] USACalcium [Mass/Vol]9.2 mg/dLNormal8.6-10.3The Count Includes [facility] Physician GroupComment on above:Performed By: #### MG, CMP, CBC #### [facility] [address] [place] [address] USAPerformed By: #### UA #### [place] [address] USAChloride [Moles/Vol]107 mmol/GDifxfg25-823Htx Count Includes [facility] Physician GroupComment on above:Performed By: #### MG, CMP, CBC #### [facility] [address] [place] [address] USAPerformed By: #### UA #### [place] [address] USACO2 [Moles/Vol]25.1 mmol/CWyasqr22.0-31.0The Count Includes [facility] Physician GroupComment on above:Performed By: #### MG, CMP, CBC #### [facility] [address] [place] [address] USAPerformed By: #### UA #### [place] [address] USACreatinine [Mass/Vol]0.95 mg/dLNormal0.70-1.30[facility] Physician GroupComment on above:Performed By: #### MG, CMP, CBC #### [place] [address] USAPerformed By: #### UA #### [place] [address] USACreatinine Clr Calc Fkgqfklv94.56NormHalifax Health Medical Center of [facility] Physician GroupComment on above:Performed By: #### MG, CMP, CBC #### [place] [address] USAPerformed By: #### UA #### [place] [address] USAGFR/1.73 sq M.predicted MDRD (S/P/Bld) [Vol rate/Area] mL/min/{1.73_m2}NormalThe Count Includes [facility] Physician GroupComment on above:Performed By: #### MG, CMP, CBC #### [place] [address] USAPerformed By: #### UA #### [place] [address] USAGlobulin (S) [Mass/Vol]2.6 g/dLNoECU Health Roanoke-Chowan Hospital Physician GroupComment on above:Performed By: #### MG, CMP, CBC #### [facility] [facility] [address] [place] [address] USAPerformed By: #### UA #### [place] [address] USAGlucose [Mass/Vol]115 mg/rRAjmh25-670Gqy Count Includes [facility] Physician GroupComment on above:Result Comment: Random Glucose Reference Range is dependent on time and content of last meal. Glucose of more than 200 mg/dL in a nonstressed, ambulatory subject supports the diagnosis of Diabetes Mellitus. ADA recommended reference rangePerformed By: #### MG, CMP, CBC #### [facility] [address] [place] [address] USAPerformed By: #### UA #### [place] [address] USAPotassium [Moles/Vol]4.2 mmol/LNormal3.5-5.1The Count Includes [facility] Physician GroupComment on above:Performed By: #### MG, CMP, CBC #### [place] [address] USAPerformed By: #### UA #### [place] [address] USAProtein [Mass/Vol]6.4 g/dLNormal6.4-8.9The Count Includes [facility] Physician GroupComment on above:Performed By: #### MG, CMP, CBC #### [place] [address] USAPerformed By: #### UA #### [place] [address] USASodium [Moles/Vol]138 mmol/YWcehms417-612Sam Count Includes The [facility] Physician GroupComment on above:Performed By: #### MG, CMP, CBC #### [place] [address] USAPerformed By: #### UA #### [place] [address] USAUrea nitrogen [Mass/Vol]30 mg/dLHigh7-25The Count Includes The [facility] Physician GroupComment on above:Performed By: #### MG, CMP, CBC #### [facility] [address] [place] [address] USAPerformed By: #### UA #### [place] [address] USAMagnesiumon 91-01-0082Mqcoflnwj [Mass/Vol]1.8 mg/dLLow 1.9-2.7The Count Includes The [facility] Physician GroupComment on above:Result Comment: PERFORMED BY: [address] [place] [address] PATHOLOGIST COMMERCIAL CREDIT ANALYST HEBER SHANNON M.D.Performed By: #### MG, CMP, CBC #### [facility] [address] [place] [address] USAPerformed By: #### UA #### [facility] [address] [place] [address] USAMagnesium [Mass/volume] in Serum or PlasmaOrdered By: Talib Faustin on 84-62-0109Klzyokdol [Mass/Vol]Magnesium [Mass/volume] in Serum or PlasmaLow1.9-2.7FSt. Charles HospitalOffice Visiton 07-19-2024 Follow-up [id number] Jeremie Bennett 1940 M Date Provider Department Center 07/19/2024 BOY SON Hos Family History Problem Relation Age of Onset Coronary artery disease Mother Kidney disease Mother Heart failure Mother Family Status - Relation Status Age at Mother Level of Service:[address] [place] POSTOP FOLLOW UP VISIT RELATED TO ORIGINAL [facility] HospitalGLUCOSE POCT GLUCOMETERSon 16-16-1106XIOKHRA8 Glu2: Cleaned MeterNOID SumavisosGlucose [Mass/Vol]107 mg/dLBE[facility] RIVER [facility] Comment on above:Random Glucose Reference Range is dependent on time and content of last meal. Glucose of more than 200 mg/dL in a nonstressed, ambulatory subject supports the diagnosis of Diabetes Mellitus. [facility] HospitalGl[facility] [Mass/Vol]Ordered By: Matteo Melo on 41-50-9278Zzkynep [Mass/Vol]Capillary blood glucose measurement by glucometer (mass/volume)[facility] Medical CenterComment on above:Random Glucose Reference Range is dependent on time and content of last meal. Glucose of more than 200 mg/dL in a nonstressed, ambulatory subject supports the diagnosis of Diabetes Mellitus.Glucose Poct Glucometerson 69-17-9037Qdgovyh0Ibu3: Cleaned [facility] Physician GroupComment on above:Result Comment: PERFORMED BY: [place] [address] PATHOLOGIST COMMERCIAL CREDIT ANALYST HEBER SHANNON M.D.Performed By: #### GLULS #### Point of Care testing ,Performed By: #### ESR #### [facility] [address] [place] [address] USAGlucose [Mass/Vol]107 mg/dLNoECU Health Roanoke-Chowan Hospital Physician GroupComment on above:Result Comment: Random Glucose Reference Range is dependent on time and content of last meal. Glucose of more than 200 mg/dL in a nonstressed, ambulatory subject supports the diagnosis of Diabetes Mellitus.Performed By: #### GLULS #### Point of Care testing ,Performed By: #### ESR #### [place] [address] USANo Panel InformationOrdered By: Matteo Melo on 68-02-2670Hnmsull Glucose CommentGlu2: cleaned [facility] HospitalX-ray reportOrdered By: Mario Urias on 19-57-2564Cdyxy [facility] [place] [address] [place] [address] XRay Report Signed Patient: Jeremie Bennett MR#: [id number] : 1940 Acct:[id number] Age/Sex: 83 / M ADM Date: 5 Loc: [place] Room: Type: [facility] Attending Dr: Matteo Melo MD Copies [...] Urias Jr., D.O.07/17/2024 2:07 PM Dictation Location: [facility]- Transcribed By: PERLA [id number] Dictated By: Mario Urias Jr DO 07/17/241406 Signed By: 07/17/24 1407 [facility] CenterXR chest 1V portableon 69-67-5182FE chest 1V [facility] [address] [address] XRay Report Signed Patient: Jeremie Bennett MR#: [id number] : 1940 Acct:[id number] Age/Sex: 83 / M ADM Date: 07/17/24 Loc: [place] Room: Type: [facility] Attending Dr: Matteo Melo MD Copies [...] Urias Jr., D.O.07/17/2024 2:07 PM Dictation Location: [facility]-22 Transcribed By: PERLA 07/17/241406 Dictated By: Mario Urias Jr DO 07/17/241406 Signed By: 07/17/[address] Physician GroupXR chest 1V [facility] [address] [address] XRay Report Signed Patient: Jeremie Bennett MR#: [id number] : 1940 Acct:[id number] Age/Sex: 83 / M ADM Date: 07/17/24 Loc: [place] Room: Type: [facility] Attending Dr: Matteo Melo MD [...] Urias Jr., D.O.07/17/2024 2:07 PM Dictation Location: [facility]--22 Transcribed By: PERLA 07/17/24 140 Dictated By: Mario Urias Jr, DO 07/17/24 140 Signed By: 07/17/[address] [facility] [address] [facility] Physician GroupAlanine aminotransferase [Enzymatic activity/volume] in Serum or PlasmaOrdered By: Talib Faustin on 35-37-7767POO [Catalytic activity/Vol]Alanine aminotransferase [Enzymatic activity/volume] in Serum or Plasma7-52[facility] CenterAlbumin [Mass/volume] in Serum or Plasma by Bromocresol green (BCG) dye binding metho Ordered By: Talib Faustin on 40-06-5214Vyligqe BCG dye [Mass/Vol]Albumin [Mass/volume] in Serum or Plasma by Bromocresol green (BCG) dye binding metho 3.5-5.7FSt. Charles HospitalAlkaline phosphatase [Enzymatic activity/volume] in Serum or PlasmaOrdered By: Talib Faustin on 52-47-2927ADL [Catalytic activity/Vol]Alkaline phosphatase [Enzymatic activity/volume] in Serum or Xudexg00-971AnzqaxtmmLakehealth Beachwood Medical CenterAspartate aminotransferase [Enzymatic activity/volume] in Serum or PlasmaOrdered By: Talib Faustin on 36-76-7006UEW [Catalytic activity/Vol]Aspartate aminotransferase [Enzymatic activity/volume] in Serum or AiamniLyc07-45MhvurgrkuLakehealth Beachwood Medical Center Basophils Auto (Bld) [#/Vol]Ordered By: Talbi Faustin on 37-48-8825Iyibafqkx (Bld) [#/Vol]Automated basophil count0.0-0.2FSt. Charles Hospital Basophils/100 WBC Auto (Bld)Ordered By: Talib Faustin on 07-12-2024 Basophils/100 WBC (Bld)Automated basophil %.[facility] Bilirubin.total [Mass/volume] in Serum or PlasmaOrdered By: Talib Faustin on 71-98-4560Hxtnkpern [Mass/Vol]Bilirubin.total [Mass/volume] in Serum or Plasma 0.3-1.0[facility] Medical CenterCalcium [Mass/volume] in Serum or Plasma Ordered By: rick Faustin on 59-29-5532Jwdxlov [Mass/Vol]Calcium [Mass/volume] in Serum or Plasma8.6-10.3FSt. Charles HospitalCarbon dioxide, total [Moles/volume] in Serum or PlasmaOrdered By: rick Faustin on 49-07-7535WQ1 [Moles/Vol]Carbon dioxide, total [Moles/volume] in Serum or Kulwts47.0-31.0 [facility] CenterChloride [Moles/volume] in Serum or Plasma Ordered By: rick Faustin on 82-49-2193Xmkjeqfx [Moles/Vol]Chloride [Moles/volume] in Serum or Dqhiwg34-797FdykgfejiLakehealth Beachwood Medical CenterComplete Blood Count Auto Diffon 55-16-2654Wepcbqdys (Bld) [#/Vol]0.0 10*3/uLNormal 0.0-0.2The Count Includes The [facility] Physician GroupComment on above:Result Comment: PERFORMED BY: [place] [address] PATHOLOGIST COMMERCIAL CREDIT ANALYST HEBER SHANNON M.D.Performed By: #### CBC, CMP, MG #### [facility] [address] [place] [address] USAPerformed By: #### UA #### [facility] [address] [place] [address] USABasophils/100 WBC (Bld)0.3 %Normal.The Count Includes The [facility] Physician GroupComment on above:Performed By: #### CBC, CMP, MG #### [facility] [address] [place] [address] USAPerformed By: #### UA #### [facility] [address] [place] [address] USAEosinophils (Bld) [#/Vol]0.2 10*3/uLNormal0.0-0.45The Count Includes The [facility] Physician GroupComment on above:Performed By: #### CBC, CMP, MG #### [place] [address] USAPerformed By: #### UA #### [place] [address] USAEosinophils/100 WBC (Bld)1.7 %Normal.The Count Includes The [facility] Physician GroupComment on above:Performed By: #### CBC, CMP, MG #### [place] [address] USAPerformed By: #### UA #### [place] [address] USAErythrocyte distribution width (RBC) [Ratio]13.7 %Normal 12.0-14.8The Count Includes The [facility] Physician GroupComment on above:Performed By: #### CBC, CMP, MG #### [place] [address] USAPerformed By: #### UA #### [place] [address] USAHematocrit (Bld) [Volume fraction]38.0 %Low38.8-50.0The Count Includes The [facility] Physician GroupComment on above:Performed By: #### CBC, CMP, MG #### [place] [address] USAPerformed By: #### UA #### [place] [address] USAHemoglobin (Bld) [Mass/Vol]12.6 g/dLLow13.0-17.0The Count Includes [facility] Physician GroupComment on above:Performed By: #### CBC, CMP, MG #### [place] [address] USAPerformed By: #### UA #### [place] [address] USALymphocytes (Bld) [#/Vol]2.0 10*3/uLNormal1.00-4.8The Count Includes The [facility] Physician GroupComment on above:Performed By: #### CBC, CMP, MG #### [facility] [address] [place] [address] USAPerformed By: #### UA #### [place] [address] USALymphocytes/100 WBC (Bld)19.2 %Normal.The Count Includes The [facility] Physician GroupComment on above:Performed By: #### CBC, CMP, MG #### [facility] [address] [place] [address] USAPerformed By: #### UA #### [place] [address] USAMCH (RBC) [Entitic mass]30.7 uuKigyxm77.5-35.2The Count Includes The [facility] Physician GroupComment on above:Performed By: #### CBC, CMP, MG #### [place] [address] USAPerformed By: #### UA #### [place] [address] USAMCV (RBC) [Entitic vol]92.2 vPDsfjqy28.5-101The Count Includes The [facility] Physician GroupComment on above:Performed By: #### CBC, CMP, MG #### [place] [address] USAPerformed By: #### UA #### [place] [address] USAMean Corpuscular HGB Conc33.3 g/wTIgcrbc67.5-35.6The Count Includes The [facility] Physician GroupComment on above:Performed By: #### CBC, CMP, MG #### [facility] [address] [place] [address] USAPerformed By: #### UA #### [place] [address] USAMonocytes (Bld) [#/Vol]0.8 10*3/uLNormal0.0-0.8The Count Includes The [facility] Physician GroupComment on above:Performed By: #### CBC, CMP, MG #### [facility] [address] [place] [address] USAPerformed By: #### UA #### [facility] [address] [place] [address] USAMonocytes/100 WBC (Bld)7.5 %Normal.The Count Includes The [facility] Physician GroupComment on above:Performed By: #### CBC, CMP, MG #### [facility] [address] [place] [address] USAPerformed By: #### UA #### [facility] [address] [place] [address] USANeutrophils (Bld) [#/Vol]7.3 10*3/uLNormal1.8-7.7The Count Includes The [facility] Physician GroupComment on above:Performed By: #### CBC, CMP, MG #### [facility] [address] [place] [address] USAPerformed By: #### UA #### [place] [address] USANeutrophils/100 WBC (Bld)71.3 %Normal.The Count Includes The [facility] Physician GroupComment on above:Performed By: #### CBC, CMP, MG #### [place] [address] USAPerformed By: #### UA #### [facility] [address] [place] [address] USANRBC%0.1 /100{WBC}Normal0-0.5The Count Includes [facility] Comment on above:Performed By: #### CBC, CMP, MG #### [facility] [address] [place] [address] USAPerformed By: #### UA #### [facility] [address] [place] [address] USAPlatelet mean volume (Bld) [Entitic vol]9.0 fLNormal 6.6-10.1The Count Includes The [facility] Physician GroupComment on above:Performed By: #### CBC, CMP, MG #### [address] [place] [address] USAPerformed By: #### UA #### [facility] [address] [place] [address] USAPlatelets (Bld) [#/Vol]197 10*3/gQEtofyq349-353Xmf Count Includes The [facility] Physician GroupComment on above:Performed By: #### CBC, CMP, MG #### [facility] [address] [place] [address] USAPerformed By: #### UA #### [place] [address] USARBC (Bld) [#/Vol]4.12 10*6/uLNormal3.90-5.60The Count Includes [facility] Physician GroupComment on above:Performed By: #### CBC, CMP, MG #### [place] [address] USAPerformed By: #### UA #### [place] [address] USAWBC (Bld) [#/Vol]10.2 10*3/uLNormal4.1-10.5The Count Includes [facility] Physician GroupComment on above:Performed By: #### CBC, CMP, MG #### [place] [address] USAPerformed By: #### UA #### [place] [address] USAComprehensive Metabolic Panelon 78-16-3797Vywopkl [Mass/Vol]3.9 g/dLNormal3.5-5.7The Count Includes [facility] Physician GroupComment on above: Performed By: #### CBC, BMP #### [facility] [address] [place] [address] USAPerformed By: #### UA #### [place] [address] USAAlbumin/Globulin [Mass ratio]1.6 {ratio}NormalThe Count Includes [facility] Physician GroupComment on above:Performed By: #### CBC, BMP #### [place] [address] USAPerformed By: #### UA #### [facility] [address] [place] [address] USAALP [Catalytic activity/Vol]86 U/PIfckjd83-516Isj Count Includes [facility] Physician GroupComment on above:Performed By: #### CBC, BMP #### [facility] [address] [place] [address] USAPerformed By: #### UA #### [facility] [address] [place] [address] USAALT [Catalytic activity/Vol]15 U/LNormal7-52The Count Includes [facility] Physician GroupComment on above:Performed By: #### CBC, BMP #### [facility] [address] [place] [address] USAPerformed By: #### UA #### [facility] [address] [place] [address] USAAnion gap [Moles/Vol]12.2 mmol/LNormal6.0-15.0The Count Includes [facility] Physician GroupComment on above:Performed By: #### CBC, BMP #### [facility] [address] [place] [address] USAPerformed By: #### UA #### [facility] [address] [place] [address] USAAST [Catalytic activity/Vol]11 U/TWoc42-99Ipb Count Includes [facility] Physician GroupComment on above:Performed By: #### CBC, BMP #### [facility] [address] [place] [address] USAPerformed By: #### UA #### [facility] [address] [place] [address] USABilirubin [Mass/Vol]0.7 mg/dLNormal0.3-1.0The Count Includes [facility] Physician GroupComment on above:Performed By: #### CBC, BMP #### [facility] [address] [place] [address] USAPerformed By: #### UA #### [facility] [address] [place] [address] USACalcium [Mass/Vol]9.0 mg/dLNormal8.6-10.3The Count Includes [facility] Physician GroupComment on above:Performed By: #### CBC, BMP #### [facility] [address] [place] [address] USAPerformed By: #### UA #### [facility] [address] [place] [address] USAChloride [Moles/Vol]102 mmol/SXimbdu37-041Zgv Count Includes [facility] Physician GroupComment on above:Performed By: #### CBC, BMP #### [facility] [address] [place] [address] USAPerformed By: #### UA #### [facility] [address] [place] [address] USACO2 [Moles/Vol]27.6 mmol/CExnwjf12.0-31.0The Count Includes [facility] Physician GroupComment on above:Performed By: #### CBC, BMP #### [facility] [address] [place] [address] USAPerformed By: #### UA #### [facility] [address] [place] [address] USACreatinine [Mass/Vol]1.01 mg/dLNormal0.70-1.30The Count Includes [facility] Physician GroupComment on above:Performed By: #### CBC, BMP #### [facility] [address] [place] [address] USAPerformed By: #### UA #### [facility] [address] [place] [address] USACreatinine Clr Calc Xzwluiuw10.09NormalThe Count Includes [facility] Physician GroupComment on above:Performed By: #### CBC, BMP #### [facility] [address] [place] [address] USAPerformed By: #### UA #### [facility] [address] [place] [address] USAGFR/1.73 sq M.predicted MDRD (S/P/Bld) [Vol rate/Area] mL/min/{1.73_m2}NormalThe Count Includes [facility] Physician GroupComment on above:Performed By: #### CBC, BMP #### [address] [place] [address] USAPerformed By: #### UA #### [place] [address] USAGlobulin (S) [Mass/Vol]2.5 g/dLNormalThe Count Includes [facility] Physician GroupComment on above:Performed By: #### CBC, BMP #### [place] [address] USAPerformed By: #### UA #### [place] [address] USAGlucose [Mass/Vol]120 mg/mPPqtl33-905Mos Count Includes [facility] Physician GroupComment on above:Result Comment: Random Glucose Reference Range is dependent on time and content of last meal. Glucose of more than 200 mg/dL in a nonstressed, ambulatory subject supports the diagnosis of Diabetes Mellitus. ADA recommended reference rangePerformed By: #### CBC, BMP #### [place] [address] USAPerformed By: #### UA #### [place] [address] USAPotassium [Moles/Vol]4.8 mmol/LNormal3.5-5.1The Count Includes [facility] Physician GroupComment on above:Performed By: #### CBC, BMP #### [place] [address] USAPerformed By: #### UA #### [place] [address] USAProtein [Mass/Vol]6.4 g/dLNormal6.4-8.9The Count Includes [facility] Physician GroupComment on above:Performed By: #### CBC, BMP #### [facility] [address] [place] [address] USAPerformed By: #### UA #### [place] [address] USASodium [Moles/Vol]137 mmol/PJieocv398-751Xam Count Includes [facility] Physician GroupComment on above:Performed By: #### CBC, BMP #### [place] [address] USAPerformed By: #### UA #### [facility] [address] [place] [address] USAUrea nitrogen [Mass/Vol]26 mg/dLHigh7-25The Count Includes [facility] Physician GroupComment on above:Performed By: #### CBC, BMP #### [facility] [address] [place] [address] USAPerformed By: #### UA #### [facility] [address] [place] [address] USACreatinine [Mass/volume] in Serum or PlasmaOrdered By: rick Faustin on 05-53-9891Iujjzmenlz [Mass/Vol]Creatinine [Mass/volume] in Serum or Plasma0.70-1.30[facility] CenterEosinophils Auto (Bld) [#/Vol]Ordered By: rick Faustin on 78-44-0981Exfkgmveejf (Bld) [#/Vol] Automated eosinophil count0.0-0.45[facility] Eosinophils/100 WBC Auto (Bld)Ordered By: rick Faustin on 07-12-2024 Eosinophils/100 WBC (Bld)Automated eosinophil %.[facility] Medical CenterErythrocyte distribution width Auto (RBC) [Ratio]Ordered By: rick Hargrove on 73-58-7879Azsbsemwepq distribution width (RBC) [Ratio]Erythrocyte distribution width [Ratio] by Automated count12.0-14.8[facility] Medical CenterGlobulin Calc (S) [Mass/Vol]Ordered By: rick Faustin on 07-12-2024 Globulin (S) [Mass/Vol]Serum globulin measurement by calculation (mass/volume) [facility] CenterGlucose [Mass/volume] in Serum or PlasmaOrdered By: rick Faustin on 15-65-9507Rdxyfmw [Mass/Vol]Glucose [Mass/volume] in Serum or StmyteEfyp24-729EbyhduqvqLakehealth Beachwood Medical CenterComment on above:ADA recommended reference rangeRandom Glucose Reference Range is dependent on time and content of last meal. Glucose of more than 200 mg/dL in a nonstressed, ambulatory subject supports the diagnosisof Diabetes Mellitus.Hematocrit Auto (Bld) [Volume fraction]Ordered By: Talib Faustin on 75-26-2602Otgauqfywk (Bld) [Volume fraction]Hematocrit [Volume Fraction] of Blood by Automated countLow 38.8-50.0[facility] CenterHemoglobin [Mass/volume] in Blood Ordered By: Talib Faustin on 06-68-5696Znvqmzmdod (Bld) [Mass/Vol]Hemoglobin [Mass/volume] in WphizVnc55.0-17.0[facility] CenterLeukocytes [#/volume] corrected for nucleated erythrocytes in Blood by Automated coun Ordered By: Talib Faustin on 33-29-5221XBO corrected for nucl RBC Auto (Bld) [#/Vol]Leukocytes [#/volume] corrected for nucleated erythrocytes in Blood by Automated coun4.1-10.5FSt. Charles HospitalLymphocytes Auto (Bld) [#/Vol]Ordered By: Talib Faustin on 83-60-4160Knqkwsbqcky (Bld) [#/Vol] Lymphocytes [#/volume] in Blood by Automated count1.00-4.8[facility] CenterLymphocytes/100 WBC Auto (Bld)Ordered By: Talib Faustin on 43-01-1774Foteqbqipdm/100 WBC (Bld)Lymphocytes/100 leukocytes in Blood by Automated count.[facility] CenterMCH Auto (RBC) [Entitic mass] Ordered By: Talib Faustin on 53-50-1369JDV (RBC) [Entitic mass]MCH [Entitic mass] by Automated count27.5-35.2FSt. Charles HospitalMCHC Auto (RBC) [Mass/Vol]Ordered By: Talib Faustin on 31-58-2931PEUF (RBC) [Mass/Vol] MCHC [Mass/volume] by Automated count32.5-35.6FSt. Charles Hospital MCV Auto (RBC) [Entitic vol]Ordered By: Talib Faustin on 64-90-0788SPD (RBC) [Entitic vol]MCV [Entitic volume] by Automated count83.5-101[facility] Medical CenterMagnesiumon 49-25-1136Fkisuazwt [Mass/Vol]1.9 mg/dLNormal1.9-2.7 The Count Includes [facility] Physician GroupComment on above:Result Comment: PERFORMED BY: [place] [address] PATHOLOGIST COMMERCIAL CREDIT ANALYST HEBER SHANNON M.D.Performed By: #### CBC, BMP #### [facility] [address] [place] [address] USAPerformed By: #### UA #### [facility] [address] [place] [address] USAMagnesium [Mass/volume] in Serum or PlasmaOrdered By: Talib Faustin on 78-08-6736Urofappxd [Mass/Vol]Magnesium [Mass/volume] in Serum or Plasma1.9-2.7FSt. Charles HospitalMonocytes Auto (Bld) [#/Vol] Ordered By: Talib Faustin on 83-67-9013Ekbrajrnw (Bld) [#/Vol]Automated blood monocyte count0.0-0.8[facility] CenterMonocytes/100 WBC Auto (Bld)Ordered By: Talib Faustin on 46-74-2865Wmycmdrxv/100 WBC (Bld)Automated monocyte %.[facility] Medical CenterNeutrophils Auto (Bld) [#/Vol] Ordered By: Talib Faustin on 29-79-8361Whccwmzsqke (Bld) [#/Vol]Neutrophils [#/volume] in Blood by Automated count1.8-7.7FSt. Charles Hospital Neutrophils/100 WBC Auto (Bld)Ordered By: Talib Faustin on 07-12-2024 Neutrophils/100 WBC (Bld)Automated neutrophil %.[facility] CenterNo Panel InformationOrdered By: Talib Faustin on 52-83-9388Ryhqamhde GFR (CKD-EPI)> 60.0 mL/MinLakehealth Beachwood Medical CenterPharmacy Creatinine Clearance (Chem53.09[facility] Medical CenterNucleated erythrocytes [Presence] in Blood by Automated countOrdered By: Talib Faustin on 07-12-2024 Nucleated RBC Auto Ql (Bld)Nucleated erythrocytes [Presence] in Blood by Automated count0-0.5FSt. Charles HospitalPlatelet mean volume Auto (Bld) [Entitic vol]Ordered By: Talib Faustin on 47-51-4279Yftghlyu mean volume (Bld) [Entitic vol]Platelet mean volume [Entitic volume] in Blood by Automated count6.6-10.1FSt. Charles HospitalPlatelets Auto (Bld) [#/Vol] Ordered By: Talib Faustin on 07-73-8074Yshbzyadk (Bld) [#/Vol]Platelets [#/volume] in Blood by Automated nhhea787-293CiiieerfmLakehealth Beachwood Medical Center Potassium [Moles/volume] in Serum or PlasmaOrdered By: Talib Faustin on 69-23-1496Ztxusxukr [Moles/Vol]Potassium [Moles/volume] in Serum or Plasma 3.5-5.1FSt. Charles HospitalProtein [Mass/volume] in Serum or Plasma Ordered By: Talib Faustin on 23-97-9112Ueajgjx [Mass/Vol]Protein [Mass/volume] in Serum or Plasma6.4-8.9[facility] Medical CenterRBC Auto (Bld) [#/Vol] Ordered By: Talib Faustin on 28-77-6943ZKN (Bld) [#/Vol]Erythrocytes [#/volume] in Blood by Automated count3.90-5.60[facility] Jewish Hospitalerum or plasma albumin/globulin mass ratioOrdered By: aTlib Faustin on 07-12-2024 Albumin/Globulin [Mass ratio]Serum or plasma albumin/globulin mass ratio [facility] Jewish Hospitalerum or plasma anion gap determinationOrdered By: Talib Faustin on 61-12-9015Unffv gap [Moles/Vol]Serum or plasma anion gap determination6.0-15.0[facility] Hospitalodium [Moles/volume] in Serum or PlasmaOrdered By: Talib Faustin on 17-74-1223Zaonse [Moles/Vol]Sodium [Moles/volume] in Serum or Limyfh029-741GjmfseeqbLakehealth Beachwood Medical CenterUrea nitrogen [Mass/volume] in Serum or PlasmaOrdered By: Talib Faustin on 33-82-4789Ixnz nitrogen [Mass/Vol]Urea nitrogen [Mass/volume] in Serum or Plasma High7-25L[facility] Medical CenterWBC Auto (Bld) [#/Vol]Ordered By: Talib Faustin on 11-21-0524FLU (Bld) [#/Vol]Leukocytes [#/volume] in Blood by Automated count4.1-10.5FSt. 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 Additional Equipment RequestsNormalUniversity of Rio Grande Regional HospitalHPon [id number] Attestation signed by Stacey Patel MD at [...] be an additional personal documentation from me. [place] [facility] Consult Note [place] [facility] Reason for visit: gen change 07/10/2024 [...] Diabetes mellitus ([facility]) Heart valve disease Hyperlipidemia VT (ventricular tachycardia) (CMS/[facility]) PSH: Surgical History Past Surgical History: Procedure Laterality Date ABLATION OF DYSRHYTHMIC FOCUS CARDIAC CATHETERIZATION INSERT / REPLACE / REMOVE PACEMAKER SH: Social Determinants of Health Tobacco Use: Medium Risk (05/11/2024) Received from [facility] Patient History Smoking Tobacco Use: Former Smokeless Tobacco Use: Former Passive Exposure: Not on file Alcohol Use: Not on file Financial Resource Strain: Not on file Food Insecurity: Not on file Transportation Needs: Not on file Physical Activity: Not on file Stress: Not on file Social Connections: Not on file Intimate Partner Violence: Unknown (07/08/2023) [place] Safety & Environment Fear of Current or Ex-Partner: Not on file Emotionally Abused: Not on file Physically Abused: Not on file Sexually Abused: Not on file Physically or Sexually Abused: Not on file Depression: Not at risk (04/07/2024) Received from [facility] PHQ-2 Patient Health Questionnaire-2 Score: 0 [...] upstroke, no b (more content not included)... [facility] HospitalNURSNOTEon 90-21-6382XIROOFXWMG educated pt on d/c instructions. This included: [...] wheeled off of unit with all of belongings.[facility] HospitalNURSNOTECHG wipes and betadine nasal swabs completed.Normal Doctors HospitalOrders Onlyon 33-30-3032Mipgnu [id number] Jeremie Bennett 1940 M Date Provider Department Center 07/10/2024 ELIF GONZALEZ [facility] HeartVAS Family History Problem Relation Age of Onset Coronary artery disease Mother Kidney disease Mother Heart failure Mother Family Status - Relation Status Age at MotherNormalUniversity of Rio Grande Regional HospitalCB w/ Auto DiffOrdered By: SYSTEM SYSTEM on 56-66-4509Asnh form neutrophils/100 WBC (Bld)8.0 %High0.0-6.0 Remisol HemeComment on above:Performed By: #### [id number] #### [facility] [address] [place], [place] [address]Tqoflzohn (Bld) [#/Vol]0.0 E9/LNormal0.0-0.2Remisol HemeComment on above:Performed By: #### [id number] #### [facility] [address] [place], [place] [address]Gzqgoxpdrbd (Bld) [#/Vol]0.0 E9/LNormal0.0-0.5Remisol Heme Comment on above:Performed By: #### [id number] #### [facility] [address] [place], [place] [address]Ykwgbwqohku/100 WBC (Bld)0.0 %Normal0.0-8.0Remisol HemeComment on above:Performed By: #### [id number] #### [facility] [address] [place] [address]Nkasnvkuxha distribution width (RBC) [Ratio]13.9 %Normal 10.9-14.2Remisol HemeComment on above:Performed By: #### [id number] #### [facility] [address] [place], [place] [address]Cernxultcc (Bld) [Volume fraction]39.7 %Juavdt68.7-49.0Remisol HemeComment on above:Performed By: #### [id number] #### [facility] [address], [place] [address]Fyimktehri (Bld) [Mass/Vol]13.3 g/dLLow13.5-17.5Remisol Heme Comment on above:Performed By: #### [id number] #### [facility] [address] [place], [place] [address]Ksjtprnseqo (Bld) [#/Vol]2.2 E9/LNormal1.0-4.0Remisol Heme Comment on above:Performed By: #### [id number] #### [facility] [address] [place] [address]Lozdaqjarwb/100 WBC (Bld)20.0 %Qqddwc45.0-50.0Remisol Heme Comment on above:Performed By: #### [id number] #### [facility] [address] [place] [address]HCJ (RBC) [Entitic mass]31.3 opYkoabj31.0-34.0Remisol Heme Comment on above:Performed By: #### [id number] #### [facility] [address] [place] [address] 120[address]EBKB (RBC) [Mass/Vol]33.4 g/dQVmrxab61.4-36.0Remisol Heme Comment on above:Performed By: #### [id number] #### [facility] [address] [place] [address]BVC (RBC) [Entitic vol]93.5 lHYrkowh30.0-100.0Remisol Heme Comment on above:Performed By: #### [id number] #### [facility] [address] [place] [address]Tjhdobvkq (Bld) [#/Vol]0.6 E9/LNormal0.2-1.0Remisol HemeComment on above:Performed By: #### [id number] #### [facility] [address] [place] [address]Ejsspdmnnx/100 WBC (Bld)3.0 %High0.0-0.0Remisol HemeComment on above:Performed By: #### [id number] #### [facility] [address] [place] [address]Aanahyipouw (Bld) [#/Vol]7.4 E9/LInvalid Interpretation Code Remisol HemeComment on above:Performed By: #### [id number] #### [facility] [address] [place] [address]Ferjzkaj399.0 E9/YCsdndh433.0-500.0Remisol HemeComment on above:Performed By: #### [id number] #### [facility] [address] [place] [address]Bhnslcmw mean volume (Bld) [Entitic vol]9.2 fLNormal6.4-10.8 Remisol HemeComment on above:Performed By: #### [id number] #### [facility] [address] [place] [address] 30343BLK (Bld) [#/Vol]4.2 E12/LLow4.3-5.9Remisol HemeComment on above:Performed By: #### [id number] #### [facility] [address] [place] [address]Vkwvdkgfa neutrophils/100 WBC (Bld)62.0 %Ezrpcq79.0-75.0Remisol HemeComment on above:Performed By: #### [id number] #### [facility] [address] [place] [address]18[address]Aybjewh lymphocytes/100 WBC (Bld)1.0 %High0.0-0.0Remisol Heme Comment on above:Performed By: #### [id number] #### [facility] [address] [place] [address]14[address]PUJ corrected for nucl RBC Auto (Bld) [#/Vol]10.5 E9/LNormal 4.0-11.0Remisol HemeComment on above:Performed By: #### [id number] #### [facility] [address] [place] [address]MVZ w/ Auto Diffon 31-88-5062GWK size Nom (Bld)NORMALInvalid Interpretation CodeFisher Baltimore Va Medical CenterComment on above:Performed By: #### [id number] #### [facility] [address] [place] [address] 44[address]WSMCMLQDPWqwnwyc By: SYSTEM SYSTEM on 07-03-2024 Albumin/Globulin [Mass ratio]1.5 {ratio}Normal1.1 - 2.2Remisol ChemALP [Catalytic activity/Vol]70 [iU]/sAkbnnd85 - 98 Int._Unit/LRemisol ChemALT No additional P-5'-P [Catalytic activity/Vol]24 [iU]/dNormal6 - 46 Int._Unit/L Remisol ChemAST [Catalytic activity/Vol]20 [iU]/dNormal5 - 43 Int._Unit/LRemisol ChemUrea nitrogen/Creatinine [Mass ratio]20 mg/unXegwrj94 - 20Remisol ChemCMP Ordered By: SYSTEM SYSTEM on 50-67-0401Ptgzggo [Mass/Vol]4.0 g/dLNormal3.3-5.0 Remisol ChemComment on above:Performed By: #### [id number] #### [facility] [address] [place], [place] [address]Ewckk gap [Moles/Vol]10 mmol/LNormal6-16Remisol ChemComment on above:Performed By: #### [id number] #### [facility] [address] [place], [place] [address]Qsnacabyp [Mass/Vol]0.3 mg/dLNormal0.0-1.1Remisol ChemComment on above:Performed By: #### [id number] #### [facility] [address] [place], [place] [address]Tnxtfoo [Mass/Vol]9.1 mg/dLNormal8.9-11.1Remisol ChemComment on above:Performed By: #### [id number] #### [facility] [address] [place], [place] [address]Nptviezq [Moles/Vol]107 mmol/IZgpjbb193-426Mzzrutc ChemComment on above:Performed By: #### [id number] #### [facility] [address] [place], [place] [address]US4 [Moles/Vol]28 mmol/IPbnnrr32-07Iqitheg ChemComment on above:Performed By: #### [id number] #### [facility] [address] [place], [place] [address]Kfrduuxczu [Mass/Vol]1.0 mg/dLNormal0.5-1.3Remisol ChemComment on above:Performed By: #### [id number] #### [facility] [address] [place] [address] 468[address]Dtjoutnp (S) [Mass/Vol]2.7 g/dLNormal1.4-4.0Remisol ChemComment on above:Performed By: #### [id number] #### [facility] [address] [place] [address]Geqvlcd [Mass/Vol]138 mg/kKGmzltb40-662Toywixj ChemComment on above:Performed By: #### [id number] #### [facility] [address] [place] [address]66[address]Lfhfqdzjc [Moles/Vol]4.5 mmol/LNormal3.5-5.3Remisol ChemComment on above:Performed By: #### [id number] #### [facility] [address] [place] [address]Zdkpopq [Mass/Vol]6.7 g/dLNormal6.0-7.8Remisol ChemComment on above:Performed By: #### [id number] #### [facility] [address] [place] [address]Dvlins [Moles/Vol]140 mmol/BDmbhtx656-646Zntllxq ChemComment on above:Performed By: #### [id number] #### [facility] [address] [place], [place] [address]Coir nitrogen [Mass/Vol]20 mg/dLNormal5-21Remisol ChemComment on above:Performed By: #### [id number] #### [facility] [address] [place] [address] 364[address]FKMtp 43-34-0482Wisgjae/Globulin (S) [Mass conc ratio]1.5Normal 1.1-2.2Fisher [facility] Va Medical CenterComment on above:Performed By: #### [id number] #### [facility] [address] [place], [place] [address]RJR [Catalytic activity/Vol]70 Int._Unit/XFsjmcz66-07SmiiiyPaulding County HospitalComment on above:Performed By: #### [id number] #### [facility] [address], [place] [address]MXJ No additional P-5'-P [Catalytic activity/Vol]24 Int._Unit/L Normal6-46Paulding County HospitalComment on above:Performed By: #### [id number] #### [facility] [address] [place], [place] [address]DPW [Catalytic activity/Vol]20 Int._Unit/LNormal5-43Paulding County HospitalComment on above:Performed By: #### [id number] #### [facility] [address] [place] [address]Eadl nitrogen/Creatinine [Mass ratio]20 No SilrqVluztk04-14 [facility] County HospitalComment on above:Performed By: #### [id number] #### [facility] [address] [place], [place] [address]XWVGHRRGBTHavpqfk By: SYSTEM SYSTEM on 79-26-1817Ehjetizpf/100 WBC (Bld)0.0 %Normal0.0 - 2.0 %Remisol HemeMonocytes/100 WBC (Bld)6.0 %Normal4.0 - 14.0 %Remisol HemeRBC size Nom (Bld)NORMAL *NA* (07/03/24 12:00 PM)Invalid Interpretation CodeRemisol HemeMagnesiumOrdered By: SYSTEM SYSTEM on 65-07-2993Zdhmbarnd [Mass/Vol]2.0 mg/dLNormal1.3-2.4Remisol ChemComment on above:Performed By: #### [id number] #### [facility] [address] [place], [place] [address]zHDFNnvoigf By: SYSTEM SYSTEM on 94-84-0935uSED15 mL/min/1.73 e2Wiasve>=59Remisol ChemComment on above:Performed By: #### [id number] #### [facility] [address] [place], [place] [id number] [phone] Dr Arellano pt was called to schedule cardiac clearance appt. Pt stated he would rather be seen in [place], so I advised pt to call and schedule with them.[facility] HospitalNo Panel Informationon 06-23-2024 Pure Tone Audiometry Audio indicated a mild to severe sensorineural hearing loss 250-8000 Hz, bilaterally. [facility] HealthcareBasic Metabolic Panelon 42-25-7011Octxo gap [Moles/Vol]8.5 mmol/LNormal6.0-15.0The Count Includes [facility] Physician GroupComment on above:Performed By: #### CBC, BMP #### [facility] [address] [place] [address] USAPerformed By: #### CMP, CBC #### [place] [address] USACalcium [Mass/Vol]9.0 mg/dLNormal8.6-10.3The Count Includes The [facility] Physician GroupComment on above:Result Comment: PERFORMED BY: [place] [address] PATHOLOGIST COMMERCIAL CREDIT ANALYST HEBER SHANNON M.D.Performed By: #### CBC, BMP #### [facility] [address] [place] [address] USAPerformed By: #### CMP, CBC #### [place] [address] USAChloride [Moles/Vol]110 mmol/GHfty06-978Ogp Count Includes The [facility] Physician GroupComment on above:Performed By: #### CBC, BMP #### [place] [address] USAPerformed By: #### CMP, CBC #### [place] [address] USACO2 [Moles/Vol]24.5 mmol/BJqxodg41.0-31.0The Count Includes The [facility] Physician GroupComment on above:Performed By: #### CBC, BMP #### [place] [address] USAPerformed By: #### CMP, CBC #### [place] [address] USACreatinine [Mass/Vol]0.97 mg/dLNormal0.70-1.30The Count Includes The [facility] Physician GroupComment on above:Performed By: #### CBC, BMP #### [place] [address] USAPerformed By: #### CMP, CBC #### [place] [address] USAGFR/1.73 sq M.predicted MDRD (S/P/Bld) [Vol rate/Area] mL/min/{1.73_m2}NormalThe Count Includes The [facility] Physician GroupComment on above:Performed By: #### CBC, BMP #### [place] [address] USAPerformed By: #### CMP, CBC #### [place] [address] USAGlucose [Mass/Vol]118 mg/hKNkkb14-673Sfz Count Includes The [facility] Hospital Physician GroupComment on above:Result Comment: Random Glucose Reference Range is dependent on time and content of last meal. Glucose of more than 200 mg/dL in a nonstressed, ambulatory subject supports the diagnosis of Diabetes Mellitus. ADA recommended reference rangePerformed By: #### CBC, BMP #### [place] [address] USAPerformed By: #### CMP, CBC #### [place] [address] USAPotassium [Moles/Vol]4.0 mmol/LNormal3.5-5.1The Count Includes The [facility] Hospital Physician GroupComment on above:Performed By: #### CBC, BMP #### [place] [address] USAPerformed By: #### CMP, CBC #### [address] [address] USASodium [Moles/Vol]139 mmol/CUkeudr797-954Bgw Count Includes The [facility] Physician GroupComment on above:Performed By: #### CBC, BMP #### [facility] [address] [place] [address] USAPerformed By: #### CMP, CBC #### [facility] [address] [place] [address] USAUrea nitrogen [Mass/Vol]19 mg/dLNormal7-25The Count Includes The [facility] Physician GroupComment on above:Performed By: #### CBC, BMP #### [facility] [address] [place] [address] USAPerformed By: #### CMP, CBC #### [facility] [address] [place] [address] USABasic metabolic 1998 panelon 68-59-5081Ieklb gap [Moles/Vol]8.5 mmol/L6.0 - 15.0 meq/LNOMS HealthcareCalcium [Mass/Vol]9 mg/dL8.6 - 10.3 mg/dLNOID HealthcareChloride [Moles/Vol]110 mmol/LHigh98 - 107 mmol/L NOMS HealthcareCO2 [Moles/Vol]24.5 mmol/L21.0 - 31.0 mmol/LNOMS Healthcare Creatinine (U) [Mass/Vol]0.97 mg/dL0.70 - 1.30 mg/dLNOID HealthcareESTIMATED GFR mL/MinNOID HealthcareGlucose [Mass/Vol]118 mg/kIYaht74 - 100 mg/dLNOID HealthcareComment on above:Random Glucose Reference Range is dependent on time and content of last meal. Glucose of more than 200 mg/dL in a nonstressed, ambulatory subject supports the diagnosis of Diabetes Mellitus. ADA recommended reference range Interpretation and review of laboratory resultsAbnormalNOMS HealthcarePotassium [Moles/Vol]4 mmol/L3.5 - 5.1 mmol/LNOMS HealthcareSodium [Moles/Vol]139 mmol/L 136 - 145 mmol/LNOMS HealthcareUrea nitrogen [Mass/Vol]19 mg/dL7 - 25 mg/dLNOMercy McCune-Brooks HospitalNOID HealthcareBasophils Auto (Bld) [#/Vol]Ordered By: Matteo Melo on 41-81-2627Reoachabh (Bld) [#/Vol]Automated basophil count0.0-0.2FSt. Charles HospitalBasophils/100 WBC Auto (Bld)Ordered By: Matteo Melo on 94-61-9497Rsmctwbsg/100 WBC (Bld)Automated basophil %.[facility] CenterCBC W Auto Differential panel (Bld)on 80-14-5079Pebtdpdtw (Bld) [#/Vol] 0.1 10*3/uL0.0 - 0.2 10*3/uLNOMS HealthcareBasophils/100 WBC Manual cnt (Syn fld)0.7 %.[facility] HealthcareEosinophils (Bld) [#/Vol]0.4 10*3/uL0.0 - 0.45 10*3/uL NOM HealthcareEosinophils/100 WBC Manual cnt (Syn fld)5 %.[facility] Erythrocyte distribution width (RBC) [Ratio]13.4 %12.0 - 14.8 %[facility] Hematocrit (Bld) [Volume fraction]40.7 %38.8 - 50.0 %[facility] HospitalHemoglobin (Bld) [Mass/Vol]13.7 g/dL13.0 - 17.0 g/dLBEAR RIVER VALLEY HOSPITAL HealthcareLymphocytes (Bld) [#/Vol]2.5 10*3/uL1.00 - 4.8 10*3/uLNOMS HealthcareLymphocytes/100 WBC Manual cnt (Syn fld)30.2 %.[facility] RoadH (RBC) [Entitic mass]31 pg27.5 - 35.2 pg [facility]–Bar[facility] RoadHC (RBC) [Mass/Vol]33.7 g/dL32.5 - 35.6 g/dLSouthPointe HospitalMCV (RBC) [Entitic vol]92 fL83.5 - 101 fLNOMS HealthcareMonocytes (Bld) [#/Vol]0.7 10*3/uL0.0 - 0.8 10*3/uLNOMS HealthcareMonocytes+Macrophages/100 WBC Manual cnt (Syn fld)8.8 %.[facility] HealthcareNeutrophils (Bld) [#/Vol]4.6 10*3/uL1.8 - 7.7 10*3/uLNOMS HealthcareNeutrophils/100 WBC Manual cnt (Syn fld)55.3 %.NOMS HealthcareNRBC0.2 /100{WBC}0 - 0.5 /100{WBC}NOMS HealthcarePlatelet mean volume (Bld) [Entitic vol]8.9 fL6.6 - 10.1 fLNOMS HealthcarePlatelets (Bld) [#/Vol]234 10*3/uL150 - 450 10*3/uLNOMS HealthcareRBC LM.HPF (Urine sed) [#/Area]4.43 10*6/uL3.90 - 5.60 10*6/uLNOMS HealthcareWBC (Bld) [#/Vol]8.4 10*3/uL4.1 - 10.5 10*3/uLNOMS HealthcareWBC LM.HPF (Urine sed) [#/Area]8.4 10*3/uL4.1 - 10.5 10*3/uLNOMS HealthcareNOMS HealthcareCalcium [Mass/volume] in Serum or Plasma Ordered By: Matteo Melo on 19-82-9078Cedaysg [Mass/Vol]Calcium [Mass/volume] in Serum or Plasma8.6-10.3FSt. Charles HospitalCarbon dioxide, total [Moles/volume] in Serum or PlasmaOrdered By: Matteo Melo on 98-89-7087MX8 [Moles/Vol]Carbon dioxide, total [Moles/volume] in Serum or Gkmkxp43.0-31.0 [facility] CenterChloride [Moles/volume] in Serum or Plasma Ordered By: Matteo Melo on 78-46-0321Zvvkoers [Moles/Vol]Chloride [Moles/volume] in Serum or QfqndpTidz60-084QovpuxoyqLakehealth Beachwood Medical Center Complete Blood Count Auto Diffon 85-99-5827Wxflgvsyn (Bld) [#/Vol]0.1 10*3/uL Normal0.0-0.2The Count Includes [facility] Physician GroupComment on above:Result Comment: PERFORMED BY: [place] [address] [place] [address] PATHOLOGIST COMMERCIAL CREDIT ANALYST HEBER SHANNON M.D.Performed By: #### CBC, BMP #### [place] [address] USAPerformed By: #### CMP, CBC #### [place] [address] USABasophils/100 WBC (Bld)0.7 %Normal.The Count Includes The [facility] Physician GroupComment on above:Performed By: #### CBC, BMP #### [place] [address] USAPerformed By: #### CMP, CBC #### [place] [address] USAEosinophils (Bld) [#/Vol]0.4 10*3/uLNormal0.0-0.45The Count Includes [facility] Physician GroupComment on above:Performed By: #### CBC, BMP #### [place] [address] USAPerformed By: #### CMP, CBC #### [place] [address] USAEosinophils/100 WBC (Bld)5.0 %Normal.The Count Includes [facility] Physician GroupComment on above:Performed By: #### CBC, BMP #### [place] [address] USAPerformed By: #### CMP, CBC #### [place] [address] USAErythrocyte distribution width (RBC) [Ratio]13.4 %Normal 12.0-14.8The Count Includes [facility] Physician GroupComment on above:Performed By: #### CBC, BMP #### [place] [address] USAPerformed By: #### CMP, CBC #### [place] [address] USAHematocrit (Bld) [Volume fraction]40.7 %Slxgqy32.8-50.0The Count Includes [facility] Physician GroupComment on above:Performed By: #### CBC, BMP #### [address] [address] USAPerformed By: #### CMP, CBC #### [place] [address] USAHemoglobin (Bld) [Mass/Vol]13.7 g/cONccucg65.0-17.0The Count Includes [facility] Physician GroupComment on above:Performed By: #### CBC, BMP #### [place] [address] USAPerformed By: #### CMP, CBC #### [place] [address] USALymphocytes (Bld) [#/Vol]2.5 10*3/uLNormal1.00-4.8The Count Includes [facility] Physician GroupComment on above:Performed By: #### CBC, BMP #### [place] [address] USAPerformed By: #### CMP, CBC #### [place] [address] USALymphocytes/100 WBC (Bld)30.2 %Normal.The Count Includes [facility] Physician GroupComment on above:Performed By: #### CBC, BMP #### [facility] [address] [place] [address] USAPerformed By: #### CMP, CBC #### [place] [address] USAMCH (RBC) [Entitic mass]31.0 dkHjiqrr87.5-35.2The Count Includes The [facility] Physician GroupComment on above:Performed By: #### CBC, BMP #### [facility] [address] [place] [address] USAPerformed By: #### CMP, CBC #### [facility] [address] [place] [address] USAMCV (RBC) [Entitic vol]92.0 cJNjjuqb15.5-101The Count Includes The [facility] Physician GroupComment on above:Performed By: #### CBC, BMP #### [place] [address] USAPerformed By: #### CMP, CBC #### [facility] [address] [place] [address] USAMean Corpuscular HGB Conc33.7 g/bTZbvexb76.5-35.6The Count Includes The [facility] Physician GroupComment on above:Performed By: #### CBC, BMP #### [facility] [address] [place] [address] USAPerformed By: #### CMP, CBC #### [facility] [address] [place] [address] USAMonocytes (Bld) [#/Vol]0.7 10*3/uLNormal0.0-0.8The Count Includes The [facility] Physician GroupComment on above:Performed By: #### CBC, BMP #### [facility] [address] [place] [address] USAPerformed By: #### CMP, CBC #### [place] [address] USAMonocytes/100 WBC (Bld)8.8 %Normal.The Count Includes The [facility] Physician GroupComment on above:Performed By: #### CBC, BMP #### [facility] [address] [place] [address] USAPerformed By: #### CMP, CBC #### [place] [address] USANeutrophils (Bld) [#/Vol]4.6 10*3/uLNormal1.8-7.7The Count Includes The [facility] Physician GroupComment on above:Performed By: #### CBC, BMP #### [facility] [address] [place] [address] USAPerformed By: #### CMP, CBC #### [facility] [address] [place] [address] USANeutrophils/100 WBC (Bld)55.3 %Normal.The Count Includes The [facility] Physician GroupComment on above:Performed By: #### CBC, BMP #### [facility] [address] [place] [address] USAPerformed By: #### CMP, CBC #### [address] [address] USANRBC%0.2 /100{WBC}Normal0-0.5The Count Includes The [facility] Comment on above:Performed By: #### CBC, BMP #### [facility] [address] [place] [address] USAPerformed By: #### CMP, CBC #### [facility] [address] [place] [address] USAPlatelet mean volume (Bld) [Entitic vol]8.9 fLNormal 6.6-10.1The Count Includes The [facility] Physician GroupComment on above:Performed By: #### CBC, BMP #### [facility] [address] [place] [address] USAPerformed By: #### CMP, CBC #### [facility] [address] [place] [address] USAPlatelets (Bld) [#/Vol]234 10*3/oNLcxokq292-443Khk Count Includes The [facility] Physician GroupComment on above:Performed By: #### CBC, BMP #### [facility] [address] [place] [address] USAPerformed By: #### CMP, CBC #### [facility] [address] [place] [address] USARBC (Bld) [#/Vol]4.43 10*6/uLNormal3.90-5.60The Count Includes The [facility] Physician GroupComment on above:Performed By: #### CBC, BMP #### [facility] [address] [place] [address] USAPerformed By: #### CMP, CBC #### [facility] [address] [place] [address] USAWBC (Bld) [#/Vol]8.4 10*3/uLNormal4.1-10.5The Count Includes The [facility] Physician GroupComment on above:Performed By: #### CBC, BMP #### [facility] [address] [place] [address] USAPerformed By: #### CMP, CBC #### [facility] [address] [place] [address] USACreatinine [Mass/volume] in Serum or PlasmaOrdered By: Matteo Melo on 01-75-6115Lofenbdbzk [Mass/Vol]Creatinine [Mass/volume] in Serum or Plasma0.70-1.30[facility] Medical CenterECG 12 lead ECGon 30-61-5079ETK 12 lead [facility] Main [place] [id number] Electrocardiograph Report Signed Patient: Jeremie Bennett MR#: [id number] 812 : 1940 Acct:[id number] Age/Sex: 83 / M ADM Date: 06/22/24 [...] Signed By Amilcar Santiago MD 0 06/23/[address] [place] [address] Physician GroupECG 12 lead [facility] Main [address] [address] Electrocardiograph Report Signed Patient: Jeremie Bennett MR#: [id number] [id number] : 1940 Acct:[id number] Age/Sex: 83 / M ADM Date: 06/22/24 [...] Signed By Amilcar Santiago MD 0 06/23/[address] [place] [address] Physician GroupEosinophils Auto (Bld) [#/Vol] Ordered By: Matteo Melo on 93-99-1121Fewruhluqwh (Bld) [#/Vol]Automated eosinophil count0.0-0.45[facility] CenterEosinophils/100 WBC Auto (Bld)Ordered By: Matteo Melo on 60-66-1280Wxqkbotwpqr/100 WBC (Bld) Automated eosinophil %.[facility] Medical CenterErythrocyte distribution width Auto (RBC) [Ratio]Ordered By: Matteo Melo on 58-03-3097Yltrywtqctd distribution width (RBC) [Ratio]Erythrocyte distribution width [Ratio] by Automated count12.0-14.8[facility] CenterGlucose [Mass/volume] in Serum or PlasmaOrdered By: Matteo Melo on 82-39-3457Zqafnqy [Mass/Vol] Glucose [Mass/volume] in Serum or XpbwviUlso83-081LaupljixcLakehealth Beachwood Medical CenterComment on above:ADA recommended reference rangeRandom Glucose Reference Range is dependent on time and content of last meal. Glucose of more than 200 mg/dL in a nonstressed, ambulatory subject supports the diagnosisof Diabetes Mellitus.Hematocrit Auto (Bld) [Volume fraction]Ordered By: Matteo Melo on 38-29-6686Wrnkdxcanh (Bld) [Volume fraction]Hematocrit [Volume Fraction] of Blood by Automated count38.8-50.0[facility] CenterHemoglobin [Mass/volume] in BloodOrdered By: Matteo Melo on 52-52-0808Atiscjfzlx (Bld) [Mass/Vol]Hemoglobin [Mass/volume] in Blood13.0-17.0[facility] Medical CenterLeukocytes [#/volume] corrected for nucleated erythrocytes in Blood by Automated counOrdered By: Matteo Melo on 64-50-6778OXT corrected for nucl RBC Auto (Bld) [#/Vol]Leukocytes [#/volume] corrected for nucleated erythrocytes in Blood by Automated coun4.1-10.5FSt. Charles HospitalLymphocytes Auto (Bld) [#/Vol]Ordered By: Matteo Melo on 30-61-7513Cxgjxrrttty (Bld) [#/Vol] Lymphocytes [#/volume] in Blood by Automated count1.00-4.8[facility] CenterLymphocytes/100 WBC Auto (Bld)Ordered By: Matteo Melo on 11-49-7699Erblpdafjly/100 WBC (Bld)Lymphocytes/100 leukocytes in Blood by Automated count.[facility] HospitalH Auto (RBC) [Entitic mass] Ordered By: Matteo Melo on 29-23-7210BVI (RBC) [Entitic mass]MCH [Entitic mass] by Automated count27.5-35.2FThe Jewish HospitalHC Auto (RBC) [Mass/Vol]Ordered By: Matteo Melo on 96-01-8715MYPP (RBC) [Mass/Vol]MCHC [Mass/volume] by Automated count32.5-35.6FSt. Charles HospitalMCV Auto (RBC) [Entitic vol]Ordered By: Matteo Melo on 48-75-4225JMA (RBC) [Entitic vol]MCV [Entitic volume] by Automated count83.5-101[facility] Medical CenterMonocytes Auto (Bld) [#/Vol]Ordered By: Matteo Meol on 61-97-9009Fjxkwjdjb (Bld) [#/Vol]Automated blood monocyte count0.0-0.8[facility] CenterMonocytes/100 WBC Auto (Bld)Ordered By: Matteo Melo on 95-02-5151Sbvaazjgs/100 WBC (Bld)Automated monocyte %.[facility] Medical CenterNeutrophils Auto (Bld) [#/Vol]Ordered By: Matteo Melo on 06-22-2024 Neutrophils (Bld) [#/Vol]Neutrophils [#/volume] in Blood by Automated count 1.8-7.7FSt. Charles HospitalNeutrophils/100 WBC Auto (Bld)Ordered By: Matteo Melo on 07-16-2052Acflmigvzyd/100 WBC (Bld)Automated neutrophil %. [facility] CenterNo Panel InformationOrdered By: Matteo Melo on 81-16-9224Inqxvnygq GFR (CKD-EPI)> 60.0 mL/MinLakehealth Beachwood Medical CenterPharmacy Creatinine Clearance (ChemN/[facility] Nucleated erythrocytes [Presence] in Blood by Automated countOrdered By: Matteo Melo on 48-37-1285Aacqmfjgs RBC Auto Ql (Bld)Nucleated erythrocytes [Presence] in Blood by Automated count0-0.5FSt. Charles HospitalPlatelet mean volume Auto (Bld) [Entitic vol]Ordered By: Matteo Melo on 57-52-3959Kpkzogjc mean volume (Bld) [Entitic vol]Platelet mean volume [Entitic volume] in Blood by Automated count6.6-10.1FSt. Charles HospitalPlatelets Auto (Bld) [#/Vol]Ordered By: Matteo Melo on 86-14-9754Ichicbhze (Bld) [#/Vol]Platelets [#/volume] in Blood by Automated whzfu103-799WmdpcxohfLakehealth Beachwood Medical Center Potassium [Moles/volume] in Serum or PlasmaOrdered By: Matteo Melo on 35-41-8667Jexvjjpiz [Moles/Vol]Potassium [Moles/volume] in Serum or Plasma 3.5-5.1FSt. Charles HospitalRBC Auto (Bld) [#/Vol]Ordered By: Matteo Melo on 32-38-0912YBB (Bld) [#/Vol]Erythrocytes [#/volume] in Blood by Automated count3.90-5.60[facility] Jewish Hospitalerum or plasma anion gap determinationOrdered By: Matteo Melo on 67-28-0445Wbdqn gap [Moles/Vol] Serum or plasma anion gap determination6.0-15.0[facility] Sodium [Moles/volume] in Serum or PlasmaOrdered By: Matteo Melo on 06-22-2024 Sodium [Moles/Vol]Sodium [Moles/volume] in Serum or Jsjpej591-839AcreyzfesLakehealth Beachwood Medical CenterUrea nitrogen [Mass/volume] in Serum or PlasmaOrdered By: Matteo Melo on 98-67-6891Jckp nitrogen [Mass/Vol]Urea nitrogen [Mass/volume] in Serum or Plasma7-25[facility] Medical CenterWBC Auto (Bld) [#/Vol] Ordered By: Matteo Melo on 04-33-6449IGQ (Bld) [#/Vol]Leukocytes [#/volume] in Blood by Automated count4.1-10.5FRiverview Health Instituteurgical pathology studyon 23-98-7787Izvmnsyd pathology studyPathology report.total SEE COMMENT Surgical Pathology Case: [id number] Authorizing Provider: Mary Schneider MD Collected: 06/05/2024 1609 Ordering Location: [facility] Received: 06/05/[address] [place] [address] Pathologist: Alessandro Arzate DDS Specimen: LYMPH NODE BIOPSY Path report.final diagnosis SEE COMMENT Lymph node, core biopsy: - Metastatic non-keratinizing squamous cell carcinoma, see note. 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 P16 by immunohistochemistry: Equivocal. 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 Reference Range (p16): Negative: <50% strong nuclear [...] is submitted in toto in one cassette. [facility] AP ASR DISCLAIMER One or more of the reagents used to perform assays on this specimen MAY have contained components considered to be analyte specific reagents (ASR's). ASR's have not been cleared or approved by the U.S. Food and Drug Administration. These assays were developed and their performance characteristics determined by the Department of Pathology at [facility]. The FDA does not require [...] appropriate positive and negative controls which stained appropriately.[facility] Regional Medical CenterUS GUIDED BIOPSY LYMPH NODE SUPERFICIALon 16-17-1214EA GUIDED BIOPSY LYMPH NODE SUPERFICIALInterpreted By: Gaby Perez and Guirguis James STUDY: US GUIDED BIOPSY LYMPH NODE SUPERFICIAL; 06/05/2024 1:53 pm INDICATION: Signs/Symptoms:left neck enlarged lymph node seen on PET. COMPARISON: PET-CT dated 03/27/2024 ACCESSION NUMBER(S): [id number] ORDERING CLINICIAN: MARY SCHNEIDER TECHNIQUE: INTERVENTIONALIST(S): MD [...] intravenous fentanyl 50mcg and versed 0.5mg from 3290-2232. The physician was assisted by an independent [...] findings as stated. Performed and dictated at [facility]. MACRO: None. Signed by: Gaby Perez 06/05/2024 9:02 PM Dictation workstation: [id number] Regional Medical CenterUS guidance for percutaneous biopsy of [...] findings as stated. Performed and dictated at [facility]. MACRO: None. Signed by: Gaby Perez 06/05/2024 9:02 PM Dictation workstation: [id number] By: Gaby Perez and Guirguis James STUDY: US GUIDED BIOPSY LYMPH NODE SUPERFICIAL; 06/05/2024 1:53 pm INDICATION: Signs/Symptoms:left neck enlarged lymph node seen on PET. COMPARISON: PET-CT dated 03/27/2024 ACCESSION NUMBER(S): [id number] ORDERING CLINICIAN: MARY SCHNEIDER TECHNIQUE: INTERVENTIONALIST(S): MD [...] intravenous fentanyl 50mcg and versed 0.5mg from 3653-9668. The physician was assisted by an independent [...] PET. COMPARISON: PET-CT dated 03/27/2024 ACCESSION NUMBER(S): [id number] ORDERING CLINICIAN: MARY SCHNEIDER TECHNIQUE: INTERVENTIONALIST(S): MD [...] intravenous fentanyl 50mcg and versed 0.5mg from 5209-4054. The physician was assisted by an independent [...] findings as stated. Performed and dictated at [facility]. MACRO: None. Signed by: Gaby Perez 06/05/2024 9:02 PM Dictation workstation: [id number] [facility] Work Phone: Radiology Study observation (narrative)[facility] Work Phone: US guidance for percutaneous biopsy of Lymph node Ordered By: Gaby Perez on 27-35-8245TbwbzdhrzmZanesville City Hospital Work Phone: nm TRANSFER OF OUTSIDE FILMSon 44-59-1557FD TRANSFER OF OUTSIDE FILMSOutside images for comparison or treatment purposes, not interpreted by Radiologists.NormalKettering Health Behavioral Medical Centertudy Interpretation of outside studyon 41-42-1536Gbeivqe images for comparison or treatment purposes, not interpreted by Radiologists.IMAGINGBlood type and Indirect antibody screen panel (Bld)on 71-08-3019LWM group Nom (Bld)AUnLake County Memorial Hospital - WestBlhennepin county medical center group antibody screen QlNegativeUnLake County Memorial Hospital - WestD Ag Ql (Bld)Positive [facility] HospitalUnLake County Memorial Hospital - WestABO group Nom (Bld)ANoHocking Valley Community HospitalComment on above:Order Comment: Patient admitted for surgery associated with significant blood loss OR per blood bank request.Performed By: #### 84514-2 #### TING Knox ([id number]) [facility] ([facility]) [address] [place], [place] [address]Tifdm group antibody screen QlNegativeNoHocking Valley Community HospitalComment on above:Order Comment: Patient admitted for surgery associated with significant blood loss OR per blood bank request.Performed By: #### 88354-5 #### TING Knox ([id number]) [facility] ([facility]) [address] [place], [place] [address]J Ag Ql (Bld)PositiveTrumbull Regional Medical CenterComment on above:Order Comment: Patient admitted for surgery associated with significant blood loss OR per blood bank request.Performed By: #### 37076-2 #### TING Knox ([id number]) [facility] ([facility]) [address] [place], [place] [address]Fmdtzqw Test strip manual (Bld) [Mass/Vol]on 05-11-2024 Glucose [Mass/Vol]128 mg/yHNqqe23 - 99 mg/dLUnLake County Memorial Hospital - West Interpretation and review of laboratory resultsAbSelect Medical TriHealth Rehabilitation HospitalvelandGlucose [Mass/Vol]128 mg/zNWjst29-67 [facility] HospitalComment on above:Performed By: #### 2341-6 #### TING Knox ([id number]) [facility] ([facility]) [address] [place], [place] [address]Klfcfdd [Mass/Vol]120 mg/eYWwhd93 - 99 mg/dLUnLake County Memorial Hospital - WestComselect specialty hospital on above:RN NOTIFIEDInterpretation and review of laboratory resultsAbnoFayette County Memorial HospitalGlucose [Mass/Vol]120 mg/rDXuka51-72QopfkqthbkCommunity Regional Medical CenterComment on above:Result Comment: RN NOTIFIEDPerformed By: #### 2341-6 #### TING Knox ([id number]) [facility] ([facility]) [address] [place] [address]Fbvzkvat pathology studyon 49-62-9630Ofxxtbhj pathology study Pathology report.total SEE COMMENT Surgical Pathology Case: [id number] Authorizing Provider: Mary Schneider MD Collected: 05/11/2024 0802 Ordering Location: [facility] Received: 05/11/2024 [address] [place] Pathologist: Asuncion Quintanilla MD PhD Intraop: [...] Intraoperative Consult Pathologist(s): Carmel Patel MD data governance consultant: Dr. Alessandro Arzate. LAB AP ASR DISCLAIMER One or more of the reagents used to perform assays on this specimen MAY have contained components considered to be analyte specific reagents (ASR's). ASR's have not been cleared or approved by the U.S. Food and Drug Administration. These assays were developed and their performance characteristics determined by the Department of Pathology at [facility]. 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]VERAB/VERIFY ABORHon 37-98-5764YDU group Nom (Bld)ANoHocking Valley Community HospitalComment on above:Performed By: #### VERAB #### TING Knox ([id number]) [facility] ([facility]) [address] [place], [place] [address]K Ag Ql (Bld)PositiveNoHocking Valley Community HospitalComment on above:Performed By: #### VERAB #### TING VICENTEMOTZER L ([id number]) [facility] ([facility]) [address] [place], [place] [address]Angszn ABO/Rh Group Test (VERAB)on 96-75-1261GMD group Nom (Bld)[facility] Ag Ql (Bld)PositiveUnLake County Memorial Hospital - WestUnLake County Memorial Hospital - WestOffice Visiton 23-95-4088Flapnh-up [id number] Jeremie Bennett 1940 M Date Provider Department Center 04/25/2024 STACEY ERNANDEZ [facility] Family History Problem Relation Age of Onset Coronary artery disease Mother Kidney disease Mother Heart failure Mother Family Status - Relation Status Age at Mother Level of Service:[address] [place] OFFICE/OUTPATIENT NEW MODERATE MDM 45 MINUTESNormal [facility] HospitalAmbulatory Visit Summaryon 04-17-2024 Ambulatory Visit SummaryAmbulatory Visit Summary JEREMIE BENNETT :1940 Visit Date:04/17/2024 Ambulatory Visit Instructions Your Diagnosis Type 2 diabetes mellitus with hypercholesterolemia BMI 30.0-30.9,adult Exogenous obesity Former smoker Chronic GERD Coronary artery disease involving [place] coronary artery of [place] heart without angina pectoris Hypercholesterolemia Primary hypertension [...] Tab) fluticasone nasal (fluticasone Nasal 0.05 mg/inh [facility]) furosemide (furosemide 20 mg Tab) irbesartan (irbesartan [...] Appointments Wednesday 2:30 PM EDT With: Where: [address] [address]- Wednesday 3:30 PM EDT With: Allison CASON, Demetrius Rosa Where: [address] [address]- Medications What How Much When Instructions Unchanged [...] fluticasone nasal (fluticasone Nasal 0.05 mg/ inh [facility]) See instructions USE 1 SPRAY IN BOTH [...] you are currently receivin (more content not included)...NormalSelect Medical Specialty [facility] w/ Auto Diffon 04-17-2024 Basophils/100 WBC (Bld)0.8 %Normal0.0-2.0[facility] County HospitalComment on above:Performed By: #### [id number] #### [facility] [address] [place], [place] [address]Zwxvuooyz/Leukocytes Auto (Bld) [Pure # fraction]0.1 E9/LNormal 0.0-0.2FProMedica Fostoria Community HospitalComment on above:Performed By: #### [id number] #### [facility] [address] [place], [place] [address]Qjtyghqhwgi (Bld) [#/Vol]0.4 E9/LNormal0.0-0.5FProMedica Fostoria Community HospitalComment on above:Performed By: #### [id number] #### [facility] [address] [place], [place] [address]Dndfxmarnxr/100 WBC (Bld)4.6 %Normal0.0-8.0Paul[facility] County HospitalComment on above:Performed By: #### [id number] #### [facility] [address] [place], [place] [address]Aibxqzeyotv distribution width (RBC) [Ratio]14.0 %Normal 10.9-14.2FProMedica Fostoria Community HospitalComment on above:Performed By: #### [id number] #### [facility] [address] [place] [address]Xsrgwjtqbt (Bld) [Volume fraction]43.7 %Hzhaxk70.7-49.0Paul[facility] County HospitalComment on above:Performed By: #### [id number] #### [facility] [address] [place] [address]Pwtahwtmub (Bld) [Mass/Vol]14.5 g/vYEksvnn51.5-17.5FProMedica Fostoria Community HospitalComment on above:Performed By: #### [id number] #### [facility] [address] [place] [address]Wflycuauqun (Bld) [#/Vol]2.0 E9/LNormal1.0-4.0[facility] County HospitalComment on above:Performed By: #### [id number] #### [facility] [address] [place] [address]Bgeclbyhzyb/100 WBC (Bld)22.4 %Bljbji81.0-50.0[facility] County HospitalComment on above:Performed By: #### [id number] #### [facility] [address] [place] [address]OSL (RBC) [Entitic mass]31.2 upCixwte04.0-34.0[facility] HospitalComment on above:Performed By: #### [id number] #### [facility] [address] [place] [address]CAAQ (RBC) [Mass/Vol]33.2 g/gGKxwqqm17.4-36.0[facility] HospitalComment on above:Performed By: #### [id number] #### [facility] [address] [place] [address]FKQ (RBC) [Entitic vol]94.2 eENtlmct92.0-100.0[facility] HospitalComment on above:Performed By: #### [id number] #### [facility] [address] [place] [address]Gqnxdlrvs (Bld) [#/Vol]0.7 E9/LNormal0.2-1.0[facility] County HospitalComment on above:Performed By: #### [id number] #### [facility] [address] [place] [address]Svoocxhiews (Bld) [#/Vol]5.7 E9/LNormal2.0-7.5FProMedica Fostoria Community HospitalComment on above:Performed By: #### [id number] #### [facility] [address] [place] [address]Fzjnlfuyjmu/100 WBC (Bld)64.7 %Qswspk54.0-75.0[facility] County HospitalComment on above:Performed By: #### [id number] #### [facility] [address] [place] [address]Qrxnjckp mean volume (Bld) [Entitic vol]9.2 fLNormal6.4-10.8 [facility] HospitalComment on above:Performed By: #### [id number] #### [facility] [address] [place] [address]Ilkicqivs (Bld) [#/Vol]243.0 E9/NSetwcx923.0-500.0[facility] County HospitalComment on above:Performed By: #### [id number] #### [facility] [address] [place] [address]RGL (Bld) [#/Vol]4.6 E12/LNormal4.3-5.9Paul[facility] County HospitalComment on above:Performed By: #### [id number] #### [facility] [address] [place] [address]HDN corrected for nucl RBC Auto (Bld) [#/Vol]8.9 E9/LNormal 4.0-11.0Paul[facility] County HospitalComment on above:Performed By: #### [id number] #### [facility] [address] [place], [place] [address]MSMRLPXUQWgqrnrv By: SYSTEM SYSTEM on 73-02-6825Nwtbnph [Mass/Vol]4.3 g/dLNormal3.3 - 5.0 gm/dLRemisol ChemAlbumin DL <= 20 mg/L (U) [Mass/Vol]0.7 mg/dLNormal0.0 - 1.9 mg/dLRemisol ChemAlbumin/Globulin [Mass ratio]1.7 {ratio}Normal1.1 - 2.2Remisol ChemALP [Catalytic activity/Vol]82 [iU]/qJbsqef32 - 98 Int._Unit/LRemisol ChemALT No additional P-5'-P [Catalytic activity/Vol]17 [iU]/dNormal6 - 46 Int._Unit/LRemisol ChemAnion gap [Moles/Vol] 10 mmol/LNormal6 - 16 mEq/LRemisol ChemAST [Catalytic activity/Vol]18 [iU]/d Normal5 - 43 Int._Unit/LRemisol ChemBilirubin [Mass/Vol]0.6 mg/dLNormal0.0 - 1.1 mg/dLRemisol ChemCalcium [Mass/Vol]9.7 mg/dLNormal8.9 - 11.1 mg/dLRemisol Chem Chloride [Moles/Vol]108 mmol/SCetlhu111 - 111 mmol/LRemisol ChemCO2 [Moles/Vol] 27 mmol/APpsiah06 - 31 mmol/LRemisol ChemCreatinine [Mass/Vol]1.0 mg/dLNormal0.5 - 1.3 mg/dLRemisol SarzmGKR27 mL/min/1.73 y8Cuapgt>=59mL/min/1.73 a7Zjsoaww ChemGlobulin (S) [Mass/Vol]2.5 g/dLNormal1.4 - 4.0 gm/dLRemisol ChemGlucose [Mass/Vol]145 mg/tLZmysuy37 - 199 mg/dLRemisol ChemPotassium [Moles/Vol]4.2 mmol/LNormal3.5 - 5.3 mmol/LRemisol ChemProtein [Mass/Vol]6.8 g/dLNormal6.0 - 7.8 gm/dLRemisol ChemSodium [Moles/Vol]141 mmol/GGuobst336 - 145 mmol/LRemisol ChemUrea nitrogen [Mass/Vol]22 mg/dLHigh5 - 21 mg/dLRemisol ChemUrea nitrogen/Creatinine [Mass ratio]22 mg/nfSixq42 - 20Remisol ChemCHEMISTRYOrdered By: Isabel Cuellar on 68-45-5701MoB3a (Bld) [Mass fraction]6.5 %High<=5.9%[facility] ChemAutoSSCMPon 90-25-4460Ovlzlzg [Mass/Vol]4.3 g/dLNormal3.3-5.0Paul[facility] County HospitalComment on above:Performed By: #### [id number] #### [facility] [address], [place] [address]Aqhtbca/Globulin (S) [Mass conc ratio]1.1Nucgii6.1-2.2FProMedica Fostoria Community HospitalComment on above:Performed By: #### [id number] #### [facility] [address], [place] [address]DKO [Catalytic activity/Vol]82 Int._Unit/QQllqqm95-20QsgbraPaulding County HospitalComment on above:Performed By: #### [id number] #### [facility] [address], [place] [address]WIF No additional P-5'-P [Catalytic activity/Vol]17 Int._Unit/L Normal6-46Paul[facility] County HospitalComment on above:Performed By: #### [id number] #### [facility] [address], [place] [address]Jltxh gap [Moles/Vol]10 mmol/LNormal6-16Paul[facility] County HospitalComment on above:Performed By: #### [id number] #### [facility] [address], [place] [address]HFX [Catalytic activity/Vol]18 Int._Unit/LNormal5-43Paul[facility] County HospitalComment on above:Performed By: #### [id number] #### [facility] [address], [place] [address]Zrwpiende [Mass/Vol]0.6 mg/dLNormal0.0-1.1FProMedica Fostoria Community HospitalComment on above:Performed By: #### [id number] #### [facility] [address], [place] [address]Vwryxus [Mass/Vol]9.7 mg/dLNormal8.9-11.1FProMedica Fostoria Community HospitalComment on above:Performed By: #### [id number] #### [facility] [address], [place] [address]Lsbwbfqz [Moles/Vol]108 mmol/XKxgwpv467-681JhvgthPaulding County HospitalComment on above:Performed By: #### [id number] #### [facility] [address], [place] [address]DB0 [Moles/Vol]27 mmol/NWqdffk38-56LzbrtzPaulding County Hospital Comment on above:Performed By: #### [id number] #### [facility] [address], [place] [address]Woryjvevcu [Mass/Vol]1.0 mg/dLNormal0.5-1.3FProMedica Fostoria Community HospitalComment on above:Performed By: #### [id number] #### [facility] [address], [place] [address]Lknhcbzg (S) [Mass/Vol]2.5 g/dLNormal1.4-4.0Paulding County HospitalComment on above:Performed By: #### [id number] #### [facility] [address], [place] [address]Qxufynx [Mass/Vol]145 mg/dVBlvwzo06-964ZwvdjrPaulding County HospitalComment on above:Performed By: #### [id number] #### [facility] [address], [place] [address]Ckfowzyhz [Moles/Vol]4.2 mmol/LNormal3.5-5.3FProMedica Fostoria Community HospitalComment on above:Performed By: #### [id number] #### [facility] [address], [place] [address]Vixvtis [Mass/Vol]6.8 g/dLNormal6.0-7.8Paul[facility] County HospitalComment on above:Performed By: #### [id number] #### [facility] [address], [place] [address]Rbkgma [Moles/Vol]141 mmol/OFztfco520-040VgowksPaulding County HospitalComment on above:Performed By: #### [id number] #### [facility] [address], [place] [address]Qcqm nitrogen [Mass/Vol]22 mg/dLHigh5-21Paulding County HospitalComment on above:Performed By: #### [id number] #### [facility] [address], [place] [address]Wsut nitrogen/Creatinine [Mass ratio]22 No OfqdtLxxg11-80AjeigcPaulding County HospitalComment on above:Performed By: #### [id number] #### [facility] [address], [place] [address]Vqmwrx Medicine Office/Clinic Noteon 87-85-1277Mwwobi Medicine Office/Clinic NoteFaedward p. boland [facility] of [facility] Medicine Office/Clinic Note HPI Staff [...] a referral to Dr. Marlene Schneider in [place] for further evaluation. The patient has a [...] or previously received 4274F Lab Specimen Collect 74955 Microalbumin Level Urine Most recent diastolic blood [...] or previously received 4274F Lab Specimen Collect 87556 Microalbumin Level Urine Most recent diastolic blood [...] or previously received 4274F Lab Specimen Collect 78762 Microalbumin Level Urine Most recent diastolic blood pressure <80 mm Hg 3078F Patient screen for fall risk: no falls in last year or 1 fall with no injury in last year 1101F Systolic BP <130 mm Hg (Most Recent) 3074F 4. Former smoker (Z87.891: Personal history of nicotine dependence) Please continue not to smoke. Ordered: influe (more content not included)...[facility] Medical CenterComment on above:Result Comment: Electronically Signed By: Allison CASON, Demetrius Branham.marco a\Date and Time Signed: 04/17/24 12:20 ESTHEMATOLOGYOrdered By: SYSTEM SYSTEM on 27-78-4942Qxmaacsoc/100 WBC (Bld)0.8 %Normal0.0 - 2.0 %Remisol Heme Basophils/Leukocytes Auto (Bld) [Pure # fraction]0.1 E9/LNormal0.0 - 0.2 E9/L Remisol HemeEosinophils (Bld) [#/Vol]0.4 E9/LNormal0.0 - 0.5 E9/LRemisol Heme Eosinophils/100 WBC (Bld)4.6 %Normal0.0 - 8.0 %Remisol HemeErythrocyte distribution width (RBC) [Ratio]14.0 %Mdvgpf95.9 - 14.2 %Remisol HemeHematocrit (Bld) [Volume fraction]43.7 %Dflwgn84.7 - 49.0 %Remisol HemeHemoglobin (Bld) [Mass/Vol]14.5 g/kYJumcgq48.5 - 17.5 gm/dLRemisol HemeLymphocytes (Bld) [#/Vol] 2.0 E9/LNormal1.0 - 4.0 E9/LRemisol HemeLymphocytes/100 WBC (Bld)22.4 %Normal 14.0 - 50.0 %Remisol HemeMCH (RBC) [Entitic mass]31.2 mmJaqggv02.0 - 34.0 pg Remisol HemeMCHC (RBC) [Mass/Vol]33.2 g/qICnsali99.4 - 36.0 gm/dLRemisol HemeMCV (RBC) [Entitic vol]94.2 oMWskugs98.0 - 100.0 fLRemisol HemeMonocytes (Bld) [#/Vol]0.7 E9/LNormal0.2 - 1.0 E9/LRemisol HemeMonocytes/100 WBC (Bld)7.5 % Normal4.0 - 14.0 %Remisol HemeNeutrophils (Bld) [#/Vol]5.7 E9/LNormal2.0 - 7.5 E9/LRemisol HemeNeutrophils/100 WBC (Bld)64.7 %Tqbblr38.0 - 75.0 %Remisol Heme Platelet mean volume (Bld) [Entitic vol]9.2 fLNormal6.4 - 10.8 fLRemisol Heme Platelets (Bld) [#/Vol]243.0 E9/ODravsr244.0 - 500.0 E9/LRemisol HemeRBC (Bld) [#/Vol]4.6 E12/LNormal4.3 - 5.9 E12/LRemisol HemeWBC corrected for nucl RBC Auto (Bld) [#/Vol]8.9 E9/LNormal4.0 - 11.0 E9/LRemisol WxtmKitF0jwh 82-23-8379XsH4s (Bld) [Mass fraction]6.5 %High<=5.9Paulding County HospitalComment on above: Performed By: #### [id number] #### [facility] [address], [place] [address]B Microalbon 53-27-8386Tzvlhei DL <= 20 mg/L (U) [Mass/Vol]0.7 mg/dLNormal0.0-1.9Paul[facility] County HospitalComment on above:Performed By: #### [id number] #### [facility] [address], [place] [address]wHFWbm 00-08-9572dBPT31 mL/min/1.73 x4Sygwid>=59Paulding County HospitalComment on above:Performed By: #### [id number] #### [facility] [address], [place] [address]Ujeez metabolic 2000 panelon 73-74-8305Jwopy gap [Moles/Vol]15 mmol/BRblzve37-22FwvzknexngDoctors HospitalComment on above: Performed By: #### 47182-1 #### TING [place] ([address]) [facility] ([facility]) [address] [place], [place] [address]Sipaywt [Mass/Vol]9.9 mg/dLNormal8.6-10.6Doctors HospitalComment on above:Performed By: #### 52661-9 #### TING [place] ([address]) [facility] ([facility]) [address] [place], [place] [address]Bcgmmlnj [Moles/Vol]107 mmol/ZXspuwx53-405DhrftimfkqCommunity Regional Medical CenterComment on above:Performed By: #### 12661-2 #### TING [place] ([address]) [facility] ([facility]) [address] [place], [place] [address]UB6 [Moles/Vol]25 mmol/NAfcbhq55-82AjnlveagadDoctors HospitalComment on above:Performed By: #### 00060-7 #### TING [place] ([address]) [facility] ([facility]) [address] [place], [place] [address]Ieissdmdwr [Mass/Vol]0.96 mg/dLNormal0.50-1.30UnCommunity Regional Medical CenterComment on above:Performed By: #### 21027-0 #### TING [place] ([address]) [facility] ([facility]) [address] [place] [address]Ooecqtcwdq filtration rate/1.73 sq M.vimifecvi15 mL/min/1.73m*2Normal>60UnCommunity Regional Medical CenterComment on above:Result Comment: Calculations of estimated GFR are performed using the 2020 CKD-EPI Study Refit equation without the race variable for the IDMS-Traceable creatinine methods. https://jasn.asnjournals.org/content/early//ASN.0962316171Mmfdbbcoc By: #### 29339-7 #### TING [place] ([address]) [facility] ([facility]) [address] [place], [place] [address]Jmzqmlo [Mass/Vol]109 mg/qXNceh06-31WntbjvwmngCommunity Regional Medical CenterComment on above:Performed By: #### 83850-1 #### TING [place] ([address]) [facility] ([facility]) [address] [place], [place] [address]Ldmtfufwr [Moles/Vol]4.5 mmol/LNormal3.5-5.3Doctors HospitalComment on above:Performed By: #### 43740-8 #### TING [place] ([address]) [facility] ([facility]) [address] [place], [place] [address]Wshchg [Moles/Vol]142 mmol/CSjvvqh254-959EfdxbbfggmCommunity Regional Medical CenterComment on above:Performed By: #### 63572-7 #### TING [place] ([address]) [facility] ([facility]) [address] [place] [address]Msuc nitrogen [Mass/Vol]18 mg/dLNormal6-23UnCommunity Regional Medical CenterComment on above:Performed By: #### 61555-0 #### TING [place] ([address]) [facility] ([facility]) [address] [place] [address]UCF panel Auto (Bld)on 28-29-0751Tgqknbxergb distribution width (RBC) [Ratio]13.3 %Blbxfo12.5-14.5Doctors HospitalComment on above:Performed By: #### 34057-6 #### TING [place] ([address]) [facility] ([facility]) [address] [place] [address]Hgqkzxysyz (Bld) [Volume fraction]45.5 %Ytjqwu85.0-52.0 Doctors HospitalComment on above:Performed By: #### 47855-8 #### TING [place] ([address]) [facility] ([facility]) [address] [place] [address]Qbskdtvnff (Bld) [Mass/Vol]14.5 g/bJJmxsxd59.5-17.5Doctors HospitalComment on above:Performed By: #### 71374-2 #### TING [place] ([address]) [facility] ([facility]) [address] [place] [address]GTY (RBC) [Entitic mass]30.1 mmDzmgvl34.0-34.0Doctors HospitalComment on above:Performed By: #### 20794-4 #### TING [place] ([address]) [facility] ([facility]) [address] [place], [place] [address]KKLV (RBC) [Mass/Vol]31.9 g/dLLow32.0-36.0Doctors HospitalComment on above:Performed By: #### 86978-0 #### TING [place] ([address]) [facility] ([facility]) [address] [place], [place] [address]YND (RBC) [Entitic vol]94 gVZokjuu12-573YodfbttsaqCommunity Regional Medical CenterComment on above:Performed By: #### 45832-6 #### TING [place] ([address]) [facility] ([facility]) [address] [place], [place] [address]Juczlvqyc RBC/100 WBC (Bld) [Ratio]0.0 /100 WBCsNormal0.0-0.0 Doctors HospitalComment on above:Performed By: #### 55133-9 #### TING [place] ([address]) [facility] ([facility]) [address] [place], [place] [address]Mnuehrrtx (Bld) [#/Vol]254 x10*3/lFLbfjso558-221LuhcvsmbtqCommunity Regional Medical CenterComment on above:Performed By: #### 04306-0 #### TING [place] ([address]) [facility] ([facility]) [address] [place], [place] [address]COI (Bld) [#/Vol]4.82 x10*6/uLNormal4.50-5.90UnCommunity Regional Medical CenterComment on above:Performed By: #### 38006-1 #### TING [place] ([address]) [facility] ([facility]) [address] [place], [place] [address]KCF (Bld) [#/Vol]8.5 x10*3/uLNormal4.4-11.3Doctors HospitalComment on above:Performed By: #### 97222-3 #### TING VIEIRA Lisette ([address]) [facility] ([facility]) [address] [place] [address]Surgical pathology studyon 93-18-0526Dvxhdytc pathology study Pathology report.total SEE COMMENT Surgical Pathology Case: [id number] Authorizing Provider: Mary Schneider MD Collected: 04/07/2024 1137 Ordering Location: [facility] Received: 04/07/2024 1143 Pathologist: Alessandro Arzate DDS Specimen: GINGIVA MANDIBULAR [...] is negative for heart fungal organisms. data governance consultant: Dr. Jose Leary. Laboratory comment By [...] one cassette. [facility] LimaGLUCOSE, BLOOD (POC)on 52-16-7589Ogmrokh [Mass/Vol]113 mg/hWMmxfddlz81 - 99 mg/dLUniversity Hospitals Geauga Medical Center Comment on above:Location:[facility], [address] [place] [address] , [place], [place], [address] The Accu-Chek Inform II glucose meter has [...] above situations. Interpretation and review of laboratory resultsAbnormJ.W. Ruby Memorial Hospital PET/CT SKULL-THIGH INITon 28-46-8090CZ PET/CT SKULL-THIGH INIT* * *Final Report* * [...] * Uptake Time: 61 minutes * Radiopharmaceutical: V09-Fcqmbgjcbnupmdswwg (FDG) COMPARISON: No previous FDG PET/CT available [...] the care of you (more content not included)...NormalAvita Health System Bucyrus HospitalAmbulatory Visit Summaryon 60-15-5290Rztzwrrgui Visit SummaryAmbulatory Visit Summary JEREMIE BENNETT :1940 [...] Tab) fluticasone nasal (fluticasone Nasal 0.05 mg/inh [facility]) furosemide (furosemide 20 mg Tab) irbesartan (irbesartan [...] EST With: Allison CASON, Demetrius Rosa Where: [address] [address]- Wednesday 2:30 PM EDT With: Where: [address] [address]- Medications What How Much When [...] fluticasone nasal (fluticasone Nasal 0.05 mg/ inh [facility]) See instructions USE 1 SPRAY IN BOTH [...] Non-Formulary Medication (Misc Medication (more content not included)...[facility] Medical CenterGastroenterology Office/Clinic Note on 89-56-6542Mdnsvexufnwgbtsy Office/Clinic NoteGastroenterology Office/Clinic Note Chief Complaint 5 [...] sidebranch IPMN- 04/[address] Aguilar @ [facility] Repeat MRCP 02/2024 2. RUQ pain [...] Salomón Villarreal Lymph node bx 02/29/24 @ [facility]: A, right cervical lymph node, core biopsy: [...] spondylosis Chronic GERD Coronary artery disease involving [place] coronary artery of [place] heart without angina pectoris Diabetic autonomic neuropathy [...] Angioplasty, Cardiac pacemaker proced (more content not included)...[facility] Comment on above:Result Comment: Electronically Signed By: Beatriz CASON, Inez Funes\.br\Date and Time Signed: 03/23/24 14:49 ESTLon 51-50-3755RFkvnkqvc: [id number] [id number] Received: 02/29/24 Status: LISA Kirby Num: [id number] Spec Type: Surgical Subm Dr: LUC HAM MD Tissues: A Lymph Node - Biopsy (Needle or Incisional) (RT CERVICAL LYMPH NODE) B Lymph Node - Biopsy (Needle or Incisional) (RT CERVICAL LYMPH NODE-SALIN) Procedures: S 100, Mucicarmine, HE/6, Gross/Micro L4/2, CK5 6, CK20, CK 7, NAPSIN A, CINtec p16, TTF1, NKX3.1, MOC31, GATA3, p40, DIFF QWIK Age/ Patient Sex Location Account Attending Physician GinnyJeremie Alanis 83/M [facility] [id number] LUC HAM MD SPEC NUM: [id number] RECD: 02/29/24-1518 STATUS: LISA KIRBY NUM: [id number] DONTRELL: 02/29/24- SUBM DR: LUC HAM MD ENTERED: 02/29/24-1519 [facility] [address]: Nicolette,Myra SPEC TYPE: Surgical DEPT: MEGAN MONTEZ ENTERED BY: [id number] RECV BY: [id number] ORDERED: S 100, Mucicarmine, HE/6, Gross/Micro L4/2, CK5 6, CK20, CK 7, NAPSIN A, CINtec p16, TTF1, NKX3.1, MOC31, GATA3, p40, DIFF QWIK ORDERED: S 100, Mucicarmine, HE/6, Gross/Micro L4/2, CK5 6, CK20, CK 7, NAPSIN A, CINtec p16, TTF1, USS/4, NKX3.1, MOC31, GATA3, p40, DIFF QWIK Supplemental Report Addendum 1 Entered: 03/04/24-1035 Supplemental for findings of flow cytometry analysis (Part B) from [facility] -The flow cytometry test is canceled, due to insufficient cellularity / insufficient lymphocytes Addendum Signed (signature on file) Tae Sanchez MD 03/04/24 1035 Pathological Diagnosis A, right cervical lymph node, core biopsy: -Positive for metastatic carcinoma, 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 Note: Specimen: [id number] Received: 02/29/24 Status: LISA Kirby Num: [id number] Spec Type: Surgical Subm Dr: LUC HAM MD Tissues: A Lymph Node - Biopsy (Needle or Incisional) (RT CERVICAL LYMPH NODE) B Lymph Node - Biopsy (Needle or Incisional) (RT CERVICAL LYMPH NODE-SALIN) Procedures: S 100, Mucicarmine, HE/6, Gross/Micro L4/2, CK5 6, CK20, CK 7, NAPSIN A, CINtec p16, TTF1, NKX3.1, MOC31, GATA3, p40, DIFF QWIK Patient: Jeremie Bennett [id number] (Continued) Specimen: [id number] Received: 02/29/24 (Continued) Pathological Diagnosis (Continued) Signed (signature on file) Tae Sanchez MD 03/04/24 1033 Specimen: [id number] Received: 02/29/24 Status: LISA Kirby Num: [id number] Spec Type: Surgical Subm Dr: LUC HAM MD Tissues: A Lymph Node - Biopsy (Needle or Incisional) (RT CERVICAL LYMPH NODE) B Lymph Node - Biopsy (Needle or Incisional) (RT CERVICAL LYMPH NODE-SALIN) Procedures: S 100, Mucicarmine, HE/6, Gross/Micro L4/2, CK5 6, CK20, CK 7, NAPSIN A, CINtec p16, TTF1, NKX3.1, MOC31, GATA3, p40, DIFF QWIK Patient: Jeremie Bennett [id number] (Continued) Specimen: [id number] Received: 02/29/24 (Continued) Pathological Diagnosis (Continued) -The [...] for flow c (more content not included)...NormalThe Count Includes The [facility] Physician GroupUS BIOPSY LYMPH NODEon 76-71-2077TstJackson[place] [address] Ultrasound Report Signed Patient: JEREMIE BENNETT MR#: [id number] : 1940 Acct:[id number] Age/Sex: 83 / M ADM Date: 02/29/24 Loc: US Attending Dr: Luc Ham M.D. Ordering Physician: Luc Ham M.D. Date of Service: 02/29/24 Procedure(s): US biopsy lymph node Accession Number(s): [id number] cc: DEMETRIUS COOPER ; Luc Ham M.D. The [address] [address] Patient Name: JEREMIE BNENETT MRN: [id number] date: 1940 Sex: M Assigned Patient Location: [place] Current Patient Location: Accession/Order Number: [id number] Exam Date: 02/29/2024 08:55 Report Date: 02/29/2024 12:52 At the request of: LUC HAM Procedure: US biopsy lymph node EXAMINATION: US [...] results are pending. Electronically authenticated by: ERWIN GARCIA Date: 02/29/2024 12:52 Dictated By: Erwin Garcia M.D. Signed By: 02/29/24 1254 DD/ 1252 TD/TT: Senior Speech Pathologist:TBHRadiology, Radiologist, MD - 02/29/2024 [place] [address] Ultrasound Report Signed Patient: JEREMIE BENNETT MR#: [id number] : 1940 Acct:[id number] Age/Sex: 83 / M ADM Date: 02/29/24 Loc: US Attending Dr: Luc Ham M.D. Ordering Physician: Luc Ham M.D. Date of Service: 02/29/24 Procedure(s): US biopsy lymph node Accession Number(s): [id number] cc: DEMETRIUS COOPER ; Luc Ham M.D. The [address] [address] Patient Name: JEREMIE BENNETT MRN: [id number] date: 1940 Sex: M Assigned Patient Location: [place] Current Patient Location: Accession/Order Number: [id number] Exam Date: 02/29/2024 08:55 Report Date: 02/29/2024 12:52 At the request of: LUC GAYTANCARLOS Procedure: US biopsy lymph node EXAMINATION: US [...] results are pending. Electronically authenticated by: ERWIN GARCIA Date: 02/29/2024 12:52 Dictated By: Erwin Garcia M.D. Signed By: 02/29/24 1254 DD/ 1252 TD/TT: Senior Speech Pathologist: ANNA JAQUES HOSPITALPolina SumavisosRadiology Study observation (narrative)[facility] HealthcareUS BIOPSY LYMPH NODEOrdered By: Radiologist Radiology on 91-34-4845PBKF Sumavisos Work Phone: cT SOFT TISSUE NECK W IV CONTRASTon 83-93-7101AX SOFT TISSUE NECK W IV CONTRASTTITLE OF EXAM: CT - CT NECK WITH [...] above:Order Comment: CT S/T Neck W at [facility]. Please call patient to schedule.Itz [phone] Telephone ([facility]) JEREMIE BENNETT ([id number]) 1940 M Date Time Provider Department 02/02/24 VAISHALI PRINGLE [facility] During your visit today, we recorded the [...] and it was completed in 12/2023 at [facility]. Our office will request results for Dr. Pringle's review. Follow up will be determined upon Dr. Pringle's review of results. Carlitos Beckman 02/04/2024 9:19 AM Signed Surveillance imaging completed at OSH for IPMN surveillance. Carlitos Beckman 02/07/2024 9:31 AM Signed IPMN surveillance. Review OSH images and advise please [facility] MRI Cholanglogram Pancreatography 11/09/2023 Allergies As of Date: 02/02/2024 Noted Allergy Reaction ADHESIVE TAPE-SILICONES 01/19/2019 2 - Rash NIACIN 01/19/2019 9 - Itching 16 - Unknown Date Reviewed: 04/01/2023 Reviewed by: Debby Holland MA - Fully Assessed Reason for Visit: MRI Appointment [1569] Social Media Senior Associate - Other [3602] Primary Visit Diagnosis:IPMN (intraductal papillary mucinous neoplasm) [D49.0] Order(s):CONSULT FOR RAD 2ND READ [7388488] Order #: [id number]: 1 Prescriptions as of 02/18/2024 - iv [...] fluticasone (FLONASE) 50 mcg/actuation nasal spray 1 [place]. - omeprazole (PRILOSEC) 40 mg capsule Take [...] (None) Encounter Status:Closed by CARLITOS BECKMAN on 02/18/24[facility] CenterAmbulatory Visit Summaryon 93-70-9300Ogfebrfdem Visit SummaryAmbulatory Visit Summary JEREMIE BENNETT :1940 [...] Tab) fluticasone nasal (fluticasone Nasal 0.05 mg/inh [facility]) furosemide (furosemide 20 mg Tab) irbesartan (irbesartan [...] Beatriz CASON, Inez Funes Where: [facility] [address] [place], [place] [address]- Wednesday 10:00 AM EST With: Allison CASON, Demetrius Rosa Where: [address] [id number]- Wednesday 2:30 PM EDT With: Where: [address] [address]- Medications What How Much When Why Instructions [...] fluticasone nasal (fluticasone Nasal 0.05 mg/ inh [facility]) See instructions USE 1 SPRAY IN BOTH [...] DME Prescription) See instructions (more content not included)...[facility] Medicine Office/Clinic Noteon 68-87-9723Eooxld Medicine Office/Clinic NoteFaedward p. boland department of [facility] Medicine Office/Clinic Note HPI Staff [...] the lymphnodes has not changed. - Seeing Fatoumata later today. - Follow up PRN 2. [...] BID, # 20 cap(s), Refills(s) 0, [facility]acy: [id number], 160, cm, 01/10/24 9:43:00 EDT, Height/Length Dosing, 77.8, kg, 01/10/24 9:43:00 EDT, Weight Dosing Follow-up No qualifying data available Problem List/Past Medical History Ongoing BMI 29.0-29.9,adult Cervical lymphadenopathy Cervical spondylosis Chronic GERD Coronary artery disease involving [place] coronary artery of [place] heart without angina pectoris Diabetic autonomic neuropathy [...] PRN, 1 refills fluticasone Nasal 0.05 mg/inh [facility], See Instructions furosemide 20 mg Tab, 20 [...] change: No. Household alcohol concerns: No., 11/08/2023 [facility] (more content not included)...[facility] Medical CenterComment on above:Result Comment: Electronically Signed By: Allison CASON, Demetrius Branham.br\Date and Time Signed: 02/01/24 09:16 EDTAmbulatory Visit [...] mg Tab) fluticasone nasal (Flonase 0.05 mg/inh [place]) furosemide (furosemide 20 mg Tab) irbesartan (irbesartan [...] AM EDT With: Demetrius Cooper MD Where: [address] [address] 2023 2:45 PM EST With: Beatriz CASON, Inez Funes Where: [facility] [address] [place], [place] [address]ct e [address] [place] [address]- Wednesday 10:00 AM EST With: Allison CASON, Demetrius Rosa Where: [address] [address]- Wednesday 2:30 PM EDT With: Where: [address] [address]- Medications What How Much When [...] Unchanged fluticasone nasal (Flonase 0.05 mg/ inh [place]) 1 Sprays Nasal Inhalation 2 times a [...] day Unchanged zonisamide (z (more content not included)...[facility] Medicine Office/Clinic Noteon [id number] Medicine Office/Clinic NoteFaedward p. [facility] Office/Clinic Note HPI Staff [...] BID, # 20 cap(s), Refills(s) 0, Pharmacy: [facility][id number], 160, cm, 01/10/24 9:43:00 EDT, Height/Length Dosing, 77.8, kg, 01/10/24 9:43:00 EDT, Weight Dosing Follow-up No qualifying data available Problem List/Past Medical History Ongoing BMI 29.0-29.9,adult Cervical lymphadenopathy Cervical spondylosis Chronic GERD Coronary artery disease involving [place] coronary artery of [place] heart without angina pectoris Diabetic autonomic neuropathy [...] q4hr, PRN, 1 refills Flonase 0.05 mg/inh [place], 1 spray(s), Nasal, BID furosemide 20 mg Tab, 20 mg= 1 tab(s), Oral, Daily irbesartan 300 mg Tab, 300 mg= 1 tab(s), Oral, Daily isosorbide mononitrate, 30 mg, Oral, qAM latanoprost Opth 0.005% Janee loperamide 2 mg (more content not included)...[facility] Comment on above:Result Comment: Electronically Signed By: Allison CASON, Demetrius Branham.br\Date and Time Signed: 01/10/24 10:38 TIANTCNPFaviola [id number] ([id number]) GINNYJEREMIE ([id number]) 1940 M Date Time Provider Department 04/05/23 VAISHALI PRINGLE [id number] During your visit today, we recorded the following information about you: Lolly Dumont 04/05/2023 9:55 AM Signed Received records from [facility]. Reports for imaging listed below scanned. Images pushed through 09/27/2019 US Right Upper Quad 03/31/2020 CT ABD/PEL US Right Upper Quad Count Includes [facility] MRI Abdomen 02/22/2023 Soft Tissue Head AND [...] mucinous neoplasm) [D49.0] Order(s):GI TUMOR BOARD - PIERRE PART [APPT42] Order #: [id number]: 1 FUTURE Prescriptions as of 04/06/2023 - isosorbide mononitrate ER (IMDUR) 30 mg 24 hr tablet Take 30 mg by mouth. - clopidogrel (PLAVIX) 75 mg tablet - furosemide (LASIX) 20 mg tablet Take 20 mg by mouth. - fluticasone (FLONASE) 50 mcg/actuation nasal spray 1 [place]. - omeprazole (PRILOSEC) 40 mg capsule Take [...] (None) Encounter Status:Closed by LAMONTE COUCH [facility]23[facility] [id number] Visit ([id number]) JEREMIE BENNETT ([id number]) 1940 M Date Time Provider Department 04/01/23 1:00 PM VAISHALI PRINGLE [id number] During your visit today, we recorded the [...] his GI re (more content not included)...Normal [facility] HospitalCHEMISTRYOrdered By: SYSTEM SYSTEM on 03-10-2023 Albumin [Mass/Vol]4.0 g/dLNormal3.3 - 5.0 gm/dLFAIRFAX COMM[facility] [place] RemisolAlbumin/Globulin [Mass ratio]1.2 {ratio}Normal1.1 - 2.2[facility] RemisolALP [Catalytic activity/Vol]65 [iU]/tHlyugv21 - 98 Int._Unit/LFTMC RemisolALT No additional P-5'-P [Catalytic activity/Vol]17 [iU]/dNormal6 - 46 Int._Unit/LFT[facility] RemisolAnion gap [Moles/Vol] 10 mmol/LNormal6 - 16 mEq/LFT[facility] RemisolAST [Catalytic activity/Vol]16 [iU]/d Normal5 - 43 Int._Unit/LFT[facility] RemisolBilirubin [Mass/Vol]0.4 mg/dLNormal0.0 - 1.1 mg/dLFTMC RemisolCalcium [Mass/Vol]9.2 mg/dLNormal8.9 - 11.1 mg/dLFTMC Remisol Chloride [Moles/Vol]108 mmol/SReuwfk945 - 111 mmol/LFTMC RemisolCO2 [Moles/Vol] 25 mmol/DHuxgqh04 - 31 mmol/LFTMC RemisolCreatinine [Mass/Vol]1.1 mg/dLNormal0.5 - 1.3 mg/dLFTMC RemisolGFR/1.73 sq M.predicted among non-blacks MDRD (S/P/Bld) [Vol rate/Area]67 mL/min/1.73 p2Hrxkyr>=59mL/min/1.73 m2[facility] Chem SComment on above:Interpretive Data: Chronic kidney disease could be indicated at eGFR's of less than 60 mL/min/1.73m2. Kidney failure is indicated at less than 15 mL/min/1.73m2.Globulin (S) [Mass/Vol]3.3 g/dLNormal1.4 - 4.0 gm/dLFT[facility] Remisol Glucose [Mass/Vol]136 mg/oTMvxiet37 - 199 mg/dLFTMC RemisolComment on above: Interpretive Data: If this glucose result represents a fasting glucose, interpretation should referto the following reference range: 55-99 mg/dL Potassium [Moles/Vol]3.9 mmol/LNormal3.5 - 5.3 mmol/LFTMC RemisolProtein [Mass/Vol]7.3 g/dLNormal6.0 - 7.8 gm/dLFTMC RemisolSodium [Moles/Vol]139 mmol/L Eriwyb134 - 145 mmol/LFTMC RemisolUrea nitrogen [Mass/Vol]20 mg/dLNormal5 - 21 mg/dLFTMC RemisolUrea nitrogen/Creatinine [Mass ratio]18 mg/caWmrrbh47 - 20[facility] RemisolHEMATOLOGYOrdered By: Zigmo SYSTEM on 27-92-6622Czlmrbyje/100 WBC (Bld) 0.4 %Normal0.0 - 2.0 %[facility] HemeAutoSSBasophils/Leukocytes Auto (Bld) [Pure # fraction]0.0 E9/LNormal0.0 - 0.2 E9/LFTMC HemeAutoSSEosinophils/100 WBC (Bld)2.4 %Normal0.0 - 8.0 %[facility] HemeAutoSSEosinophils/Leukocytes Auto (Bld) [Pure # fraction]0.2 E9/LNormal0.0 - 0.5 E9/LFTMC HemeAutoSSLymphocytes/100 WBC (Bld) 21.9 %Kisbch43.0 - 50.0 %[facility] HemeAutoSSLymphocytes/Leukocytes Auto (Bld) [Pure # fraction]1.8 E9/LNormal1.0 - 4.0 E9/LFTMC HemeAutoSSMonocytes/100 WBC (Bld)6.9 %Normal4.0 - 14.0 %[facility] HemeAutoSSMonocytes/Leukocytes Auto (Bld) [Pure # fraction]0.6 E9/LNormal0.2 - 1.0 E9/LFTMC HemeAutoSSNeutrophils/100 WBC (Bld) 68.4 %Kqxbvg49.0 - 75.0 %[facility] HemeAutoSSNeutrophils/Leukocytes Auto (Bld) [Pure # fraction]5.8 E9/LNormal2.0 - 7.5 E9/LFTMC HemeAutoSSHEMATOLOGYOrdered By: Ethel Peters on 96-98-4935Dxtsuhqehtg distribution width (RBC) [Ratio]13.9 % Lmcapc02.9 - 14.2 %[facility] HemeAutoSSHematocrit (Bld) [Volume fraction]43.6 %Normal 37.7 - 49.0 %[facility] HemeAutoSSHemoglobin (Bld) [Mass/Vol]14.5 g/gOImoalg98.5 - 17.5 gm/dLFTMC HemeAutoSSMCH (RBC) [Entitic mass]30.4 ksVpqdbo15.0 - 34.0 pgFTMC HemeAutoSSMCHC (RBC) [Mass/Vol]33.2 g/hCAiqovc81.4 - 36.0 gm/dLFTMC HemeAutoSS MCV (RBC) [Entitic vol]91.7 gIEbqqxc08.0 - 100.0 fLFT HemeAutoSSPlatelet mean volume (Bld) [Entitic vol]8.6 fLNormal6.4 - 10.8 fLFTMC HemeAutoSSPlatelets (Bld) [#/Vol]236.0 E9/QFaaryl228.0 - 500.0 E9/LFTMC HemeAutoSSRBC (Bld) [#/Vol] 4.8 E12/LNormal4.3 - 5.9 E12/LFMCBRIDE ORTHOP[facility] [place] HemeAutoSSWBC corrected for nucl RBC Auto (Bld) [#/Vol]8.4 E9/LNormal4.0 - 11.0 E9/LFC HemeAutoSSMICRO OTHER TESTS Ordered By: Elba Felipe on 09-39-8352Nilnr WBC LactoferrinNegative 3 (03/10/23 12:45 PM)NormalNegativeFAIRFAX COMMUNITY HOS[facility] [place] Man SeroComment on above:Interpretive Data: The semi-quantitative detection of elevated levels of fecal lactoferrin is a marker for fecal leukocytes and an indication of intestinal inflammation. CHEMISTRYOrdered By: Yash Shah on 96-63-5130Wdlzyjm DL <= 20 mg/L (U) [Mass/Vol]microgram/mLNormal0.0 - 19.0 mcg/mLFAIRFAX COMMUNITY HOSPITAL [facility] [place] RemisolAlbumin Elph (U) [Mass fraction]mg/dLInvalid Interpretation CodeFAIRFAX COMMUNITY HOSPITAL [facility] [place] RemisolCreatinine (U) [Mass/Vol] 15.9 mg/dLInvalid Interpretation CodeFAIRFAX COMMUNITY HOSPITAL [facility] Chem MONSALVE Prot/Creat RatioUTCInvalid Interpretation Code0.00 - 200.00[facility] Chem SComment on above:Result Comment: Unable to calculate due to Protein being less than analyzer reportable range.CBC AUTO DIFFon 55-44-2729UYGQ #0.1 103/ulNormal0.0-0.1The [facility] HospitalComment on above:Performed By: #### CBC #### [facility] [address] [place] [address] Dr. Ramsey SanchezBasophils/100 WBC (Bld)0.7 %Normal0.2-2.0[facility] Comment on above:Performed By: #### CBC #### [facility] [address] [place] [address] Dr. Ramsey Ortiz #0.2 103/ulNormal0.0-0.7The [facility] HospitalComment on above: Performed By: #### CBC #### [facility] [address] [place] [address] Dr. Ramsey Canoosinophils/100 WBC (Bld)1.5 %Normal0.9-7.0[facility] Comment on above:Performed By: #### CBC #### [facility] [address] [place] [address] Dr. Ramsey Canorythrocyte distribution width (RBC) [Ratio]13.6 %Wdloof65.0-15.0 [facility] ClinicComment on above:Performed By: #### CBC #### [facility] [address] [place] [address] Dr. Ramsey SanchezHematocrit (Bld) [Volume fraction]43.5 %Euivoq84.0-54.0[facility] ClinicComment on above:Performed By: #### CBC #### [facility] [address] [place] [address] Dr. Ramsey SanchezHemoglobin (Bld) [Mass/Vol]13.9 g/dLCritically low14.0-18.0[facility] ClinicComment on above:Performed By: #### CBC #### [facility] [address] [place] [address] Dr. Ramsey Nowak #0.29 10e3/ulCritically high0.00-0.03[facility] Comment on above:Performed By: #### CBC #### [facility] [address] [place] [address] Dr. Ramsey Nowak %2.9 %Critically high0.0-0.5The [facility] HospitalComment on above:Performed By: #### CBC #### [facility] [address] [place] [address] Dr. Ramsey Damon #2.1 103/ulNormal1.2-3.8The [facility] HospitalComment on above:Performed By: #### CBC #### [facility] [address] [place] [address] Dr. Ramsey Greenwoodhocytes/100 WBC (Bld)20.8 %Sqslfl83.5-60.0The [facility] HospitalComment on above:Performed By: #### CBC #### [facility] [address] [place] [address] Dr. Ramsey Mckinley DIFF REQNONormalThe [facility] HospitalComment on above: Performed By: #### CBC #### [facility] [address] [place] [address] Dr. Ramsey Hicks (RBC) [Entitic mass]29.6 hzVhmzuo57.9-34.0The [facility] HospitalComment on above:Performed By: #### CBC #### [facility] [address] [place] [address] Dr. Ramsey Gordillo (RBC) [Mass/Vol]32.0 g/oEZbjslj69.9-35.2The [facility] HospitalComment on above:Performed By: #### CBC #### [facility] [address] [place] [address] Dr. Ramsey Meyer (RBC) [Entitic vol]92.6 jRBgnill16.0-94.0The [facility] HospitalComment on above:Performed By: #### CBC #### [facility] [address] [place] [address] Dr. Ramsey Ignacio #0.8 103/ulNormal0.3-0.8The [facility] HospitalComment on above:Performed By: #### CBC #### [facility] [address] [place] [address] Dr. Ramsey Ervinocytes/100 WBC (Bld)8.3 %Normal1.7-12.0[facility] Comment on above:Performed By: #### CBC #### [facility] [address] [place] [address] Dr. Ramsey Cooney #6.5 103/ulNormal1.4-6.5The [facility] HospitalComment on above:Performed By: #### CBC #### [facility] [address] [place] [address] Dr. Ramsey Torresutrophils/100 WBC (Bld)65.8 %Fjoawp46.0-75.0The [facility] HospitalComment on above:Performed By: #### CBC #### [facility] [address] [place] [address] Dr. Ramsey Garciaslet mean volume (Bld) [Entitic vol]11.1 fLNormal9.5-13.5The [facility] HospitalComment on above:Performed By: #### CBC #### [facility] [address] [place] [address] Dr. Ramsey SanchezPLT198 103/lkLkdjix728-242Xxa [facility] HospitalComment on above: Performed By: #### CBC #### [facility] [address] [place] [address] Dr. Ramsey SanchezRBC4.70 106/ulNormal4.70-6.10The [facility] HospitalComment on above:Performed By: #### CBC #### [facility] [address] [place] [address] Dr. Ramsey SanchezWBC9.9 103/ulNormal4.0-11.0The [facility] HospitalComment on above: Performed By: #### CBC #### [facility] [address] [place] [address] Dr. Ramsey Delgadillo URINE PROFILEon 72-94-7831Zugqhbhzs Ql (U)NegativeNormal NEGATIVEThe [facility] HospitalComment on above:Performed By: #### ERUR #### [facility] [address] [place] [address] Dr. Ramsey Baca (U)CLEARNormalCLEARCleveland ClinicComment on above: Performed By: #### ERUR #### [facility] [address] [place] [address] Dr. Ramsey Mendez (U)YELLOWNormalYELLOWCleveland ClinicComment on above: Performed By: #### ERUR #### [facility] [address] [place] [address] Dr. Ramsey Phan micrscopic examination will be performed if indicated. NormalGreene Memorial Hospital HospitalComment on above:Performed By: #### ERUR #### [facility] [address] [place] [address] Dr. Ramsey SanchezGlucose Ql (U)NegativeNormalNEGATIVECleveland ClinicComment on above:Performed By: #### ERUR #### [facility] [address] [place] [address] Dr. Ramsey SanchezHemoglobin Ql (U)NegativeNormalNEGATIVESt. [facility] Hospital on above:Performed By: #### ERUR #### [facility] [address] [place] [address] Dr. Ramsey SanchezKetones Ql (U)NegativeNormalNEGATIVECleveland ClinicComment on above:Performed By: #### ERUR #### [facility] [address] [place] [address] Dr. Ramsey SanchezLEUKOCYTESNegativeNormalNEGATIVECleveland ClinicComment on above:Performed By: #### ERUR #### [facility] [address] [place] [address] Dr. Ramsey SanchezNitrite Ql (U)NegativeNormalNEGATIVECleveland ClinicComment on above:Performed By: #### ERUR #### [facility] [address] [place] [address] Dr. Ramsey SanchezpH (U)5.5 [pH]Normal5-9[facility] ClinicComment on above: Performed By: #### ERUR #### [facility] [address] [place] [address] Dr. Ramsey Mccoy GRAVITY1.836Xldnir7.005-<=1.025The [facility] HospitalComment on above:Performed By: #### ERUR #### [facility] [address] [place] [address] Dr. Ramsey Calle PROTEINNegativeNormalNEGATIVE/ TRACEThe [facility] Comment on above:Performed By: #### ERUR #### [facility] [address] [place] [address] Dr. Ramsey Hemphill MICRO INDNOT INDICATEDNormalThe [facility] HospitalComment on above:Performed By: #### ERUR #### [facility] [address] [place] [address] Dr. Ramsey Arredondobilinogen Qn (U)0.2 {Leatha'U}/dLNormal0.2 - 1.0The [facility] HospitalComment on above:Performed By: #### ERUR #### [facility] [address] [place] [address] Dr. Ramsey SanchezLACTATE/LACTIC ACIDon 08-72-0039Kxfxzyz [Moles/Vol]1.7 mmol/L Normal0.4-2.0The [facility] HospitalComment on above:Performed By: #### LACT #### [facility] [address] [place] [address] Dr. Ramsey SanchezPROF 14(COMP METB)on 13-44-1429Sqxuzlp [Mass/Vol]3.1 g/dL Critically low3.4-5.0The [facility] HospitalComment on above:Performed By: #### CMP, HSTROPN #### [facility] [address] [place] [address] Dr. Ramsey SanchezAlbumin/Globulin [Mass ratio]0.8 {ratio}NormalThe [facility] HospitalComment on above:Performed By: #### CMP, HSTROPN #### [facility] [address] [place] [address] Dr. Ramsey SanchezALP [Catalytic activity/Vol]73 U/GFcmqsv13-586Idh [facility] HospitalComment on above:Performed By: #### CMP, HSTROPN #### [facility] [address] [address] [address] Ramsey QureshiT [Catalytic activity/Vol]22 U/FBktith09-31Blv [facility] HospitalComment on above:Performed By: #### CMP, HSTROPN #### [facility] [address] [address] [address] Ramsey Regaladoon gap [Moles/Vol]13.5 mmol/LNormalThe [facility] Comment on above:Performed By: #### CMP, HSTROPN #### [facility] [address] [place] [address] Dr. Ramsey SanchezAST [Catalytic activity/Vol]26 U/DFbivwm78-86Qon [facility] HospitalComment on above:Performed By: #### CMP, HSTROPN #### [facility] [address] [place] [address] Dr. Ramsey SanchezBilirubin [Mass/Vol]0.4 mg/dLNormal0.2-1.0[facility] Comment on above:Performed By: #### CMP, HSTROPN #### [facility] [address] [place] [address] Dr. Ramsey SanchezCalcium [Mass/Vol]8.4 mg/dLCritically low8.5-10.1[facility] ClinicComment on above:Performed By: #### CMP, HSTROPN #### [facility] [address] [place] [address] Dr. Ramsey SanchezChloride [Moles/Vol]107 mmol/PJhwgxx27-696Lql [facility] Comment on above:Performed By: #### CMP, HSTROPN #### [facility] [address] [place] [address] Dr. Ramsey SanchezCO2 [Moles/Vol]26.1 mmol/AXiobec38.0-32.0The [facility] Comment on above:Performed By: #### CMP, HSTROPN #### [facility] [address] [place] [address] Dr. Yilan ChangCreatinine [Mass/Vol]0.94 mg/dLNormal0.70-1.30The [facility] HospitalComment on above:Performed By: #### CMP, HSTROPN #### [facility] [address] [address] [address] Ramsey CanoGFR-AF RWANDAN>60Normal>=60The [facility] HospitalComment on above:Performed By: #### CMP, HSTROPN #### [facility] [address] [address] [address] Ramsey CanoGFR-NON AF RWANDAN>60Normal>=60The [facility] HospitalComment on above:Performed By: #### CMP, HSTROPN #### [facility] [address] [place] [address] Dr. Ramsey SanchezGlobulin (S) [Mass/Vol]3.7 g/dLNormalThe [facility] HospitalComment on above:Performed By: #### CMP, HSTROPN #### [facility] [address] [place] [address] Dr. Ramsey SanchezGlucose [Mass/Vol]118 mg/dLCritically mjnx20-441Gbp [facility] HospitalComment on above:Performed By: #### CMP, HSTROPN #### [facility] [address] [place] [address] Dr. Ramsey SanchezPotassium [Moles/Vol]3.6 mmol/LNormal3.5-5.1The [facility] Comment on above:Performed By: #### CMP, HSTROPN #### [facility] [address] [place] [address] Dr. Ramsey SanchezProtein [Mass/Vol]6.8 g/dLNormal6.4-8.2The [facility] Comment on above:Performed By: #### CMP, HSTROPN #### [facility] [address] [place] [address] Dr. Ramsey SanchezSodium [Moles/Vol]143 mmol/ZApokdc933-671Mao [facility] Comment on above:Performed By: #### CMP, HSTROPN #### [facility] [address] [address] [address] Ramsey SanchezUrea nitrogen [Mass/Vol]19.0 mg/dLCritically high7.0-18.0[facility] on above:Performed By: #### CMP, HSTROPN #### [facility] [address] [address] [address] Ramsey SanchezUrea nitrogen/Creatinine [Mass ratio]20.2 mg/mgNormalThe [facility] HospitalComment on above:Performed By: #### CMP, HSTROPN #### [facility] [address] [address] [address] Ramsey Steward, HIGH SENSITIVITYon 23-69-4845UIICFV3.8 pg/mLNormal 4.0-76.1[facility] on above:Result Comment: CUT-OFF POINTS HAVE BEEN ESTABLISHED BASED ON THE FOURTH UNIVERSAL DEFINITIONS OF MYOCARDIAL INFARCTION. THE UPPER REFERENCE LIMIT (URL) OF TROPONIN, DEFINED THE 99TH PERCENTILE OF cTnI DISTRIBUTION IN A REFERENCE POPULATION, HAS BEEN CONFIRMED THE DECISION THRESHOLD FOR [place] DIAGNOSIS.Performed By: #### CMP, HSTROPN #### [facility] [address] [place] [address] Dr. Ramsey SanchezXR CHEST 1 Von [id number] CHEST 1 VEXAM: XR CHEST 1 V [...] hardware and overlying objects out of the tcvae-pp-fmbi. Electronically authenticated by: ALANNA CARLOS Date: 2022-09-29 16:37NoWooster Community HospitalBNPon 26-61-7011Ikfzebknuxc peptide B (Bld) [Mass/Vol]720.0 pg/mLNormal<=1,800.0The [facility] HospitalComment on above:Performed By: #### CXSTOOL #### [facility] [address] [place] [address] Dr. Ramsey Bruno RAFI ADMITon 17-12-5197WT [Catalytic activity/Vol]198 U/L Afwxnl93-948Qqh [facility] HospitalComment on above:Performed By: #### CXSTOOL #### [facility] [address] [place] [address] Dr. Ramsey Reyes.MB [Mass/Vol]2.62 ng/mLNormal<=3.60The [facility] Comment on above:Performed By: #### CXSTOOL #### [facility] [address] [place] [address] Dr. Ramsey AriasTROP8.8 pg/mLNormal4.0-76.1The [facility] HospitalComment on above:Result Comment: CUT-OFF POINTS HAVE BEEN ESTABLISHED BASED ON THE FOURTH UNIVERSAL DEFINITIONS OF MYOCARDIAL INFARCTION. THE UPPER REFERENCE LIMIT (URL) OF TROPONIN, DEFINED THE 99TH PERCENTILE OF cTnI DISTRIBUTION IN A REFERENCE POPULATION, HAS BEEN CONFIRMED THE DECISION THRESHOLD FOR [place] DIAGNOSIS.Performed By: #### CXSTOOL #### [facility] [address] [place] [address] Dr. Ramsey Mcrae69 ng/wZSpicwn47-14Naw [facility] HospitalComment on above: Performed By: #### CXSTOOL #### [facility] [address] [place] [address] Dr. Ramsey Eller AUTO DIFFon 54-34-6544OTFK #0.0 103/ulNormal0.0-0.1The [facility] HospitalComment on above:Performed By: #### CBC #### [facility] [address] [place] [address] Dr. Ramsey SanchezBasophils/100 WBC (Bld)0.2 %Normal0.2-2.0The [facility] Comment on above:Performed By: #### CBC #### [facility] [address] [place] [address] Dr. Ramsey Ortiz #0.0 103/ulNormal0.0-0.7The [facility] HospitalComment on above: Performed By: #### CBC #### [facility] [address] [place] [address] Dr. Ramsey Canoosinophils/100 WBC (Bld)0.1 %Critically low0.9-7.0The [facility] HospitalComment on above:Performed By: #### CBC #### [facility] [address] [place] [address] Dr. Ramsey Canorythrocyte distribution width (RBC) [Ratio]14.0 %Wpdbvo02.0-15.0 The [facility] HospitalComment on above:Performed By: #### CBC #### [facility] [address] [place] [address] Dr. Ramsey SanchezHematocrit (Bld) [Volume fraction]45.4 %Afjvnm85.0-54.0The [facility] HospitalComment on above:Performed By: #### CBC #### [facility] [address] [place] [address] Dr. Ramsey SanchezHemoglobin (Bld) [Mass/Vol]14.4 g/dYFmxras03.0-18.0The [facility] HospitalComment on above:Performed By: #### CBC #### [facility] [address] [place] [address] Dr. Ramsey Nowak #0.08 10e3/ulCritically high0.00-0.03The [facility] Comment on above:Performed By: #### CBC #### [facility] [address] [place] [address] Dr. Ramsey Nowak %0.9 %Critically high0.0-0.5The [facility] HospitalComment on above:Performed By: #### CBC #### [facility] [address] [place] [address] Dr. Ramsey Damon #1.6 103/ulNormal1.2-3.8The [facility] HospitalComment on above:Performed By: #### CBC #### [facility] [address] [place] [address] Dr. Ramsey Greenwoodhocytes/100 WBC (Bld)17.9 %Critically low20.5-60.0The [facility] HospitalComment on above:Performed By: #### CBC #### [facility] [address] [place] [address] Dr. Ramsey Mckinley DIFF REQNONormalThe [facility] HospitalComment on above: Performed By: #### CBC #### [facility] [address] [place] [address] Dr. Ramsey Hciks (RBC) [Entitic mass]29.8 jgZlpjaa80.9-34.0The [facility] HospitalComment on above:Performed By: #### CBC #### [facility] [address] [place] [address] Dr. Ramsey Enriquez (RBC) [Mass/Vol]31.7 g/lAVkdwtl21.9-35.2The [facility] HospitalComment on above:Performed By: #### CBC #### [facility] [address] [place] [address] Dr. Ramsey Enriquez (RBC) [Entitic vol]94.0 rICijgof46.0-94.0The [facility] HospitalComment on above:Performed By: #### CBC #### [facility] [address] [place] [address] Dr. Ramsey Ignacio #0.9 103/ulCritically high0.3-0.8ThOhioHealth Berger Hospital Comment on above:Performed By: #### CBC #### [facility] [address] [place] [address] Dr. Ramsey Ervinocytes/100 WBC (Bld)9.6 %Normal1.7-12.0[facility] Comment on above:Performed By: #### CBC #### [facility] [address] [place] [address] Dr. Ramsey Cooney #6.3 103/ulNormal1.4-6.5The [facility] HospitalComment on above:Performed By: #### CBC #### [facility] [address] [place] [address] Dr. Ramsey Torresutrophils/100 WBC (Bld)71.3 %Otdmhd40.0-75.0The [facility] HospitalComment on above:Performed By: #### CBC #### [facility] [address] [place] [address] Dr. Ramsey SanchezPlatelet mean volume (Bld) [Entitic vol]11.0 fLNormal9.5-13.5The [facility] HospitalComment on above:Performed By: #### CBC #### [facility] [address] [place] [address] Dr. Ramsey SanchezPLT203 103/kiMctuxj652-246Tbm [facility] HospitalComment on above: Performed By: #### CBC #### [facility] [address] [place] [address] Dr. Ramsey SanchezRBC4.83 106/ulNormal4.70-6.10The [facility] HospitalComselect specialty hospital on above:Performed By: #### CBC #### [facility] [address] [place] [address] Dr. Ramsey SanchezWBC8.9 103/ulNormal4.0-11.0The [facility] HospitalComselect specialty hospital on above: Performed By: #### CBC #### [facility] [address] [place] [address] Dr. Ramsey SanchezLACTATE/LACTIC ACIDon 41-33-1143Skarcjl [Moles/Vol]1.0 mmol/L Normal0.4-2.0The [facility] HospitalComselect specialty hospital on above:Performed By: #### CBC #### [facility] [address] [place] [address] Dr. Ramsey SanchezPROF 14(COMP METB)on [id number] [Mass/Vol]3.7 g/dLNormal 3.4-5.0The Paradox HospitalComment on above:Performed By: #### CXSTOOL #### [facility] [address] [address] [address] Ramsey SanchezAlbumin/Globulin [Mass ratio]0.9 {ratio}NormalThe [facility] HospitalComment on above:Performed By: #### CXSTOOL #### [facility] [address] [address] [address] Ramsey Mcgrath [Catalytic activity/Vol]68 U/XRawdtd93-840Yoa [facility] HospitalComment on above:Performed By: #### CXSTOOL #### [facility] [address] [address] [address] Ramsey Mclean [Catalytic activity/Vol]23 U/GIprkaf97-38Tpx [facility] HospitalComment on above:Performed By: #### CXSTOOL #### [facility] [address] [address] [address] Ramsey Regaladoon gap [Moles/Vol]12.6 mmol/LNormalThe [facility] Comment on above:Performed By: #### CXSTOOL #### [facility] [address] [address] [address] Ramsey SanchezAST [Catalytic activity/Vol]21 U/LJvzags36-16Wpf [facility] HospitalComment on above:Performed By: #### CXSTOOL #### [facility] [address] [address] [address] Ramsey SanchezBilirubin [Mass/Vol]0.3 mg/dLNormal0.2-1.0The [facility] Comment on above:Performed By: #### CXSTOOL #### [facility] [address] [address] [address] Ramsey SanchezCalcium [Mass/Vol]8.8 mg/dLNormal8.5-10.1The [facility] Comment on above:Performed By: #### CXSTOOL #### [facility] [address] [address] [address] Ramsey SanchezChloride [Moles/Vol]104 mmol/VLgutaa36-263Gzq [facility] Comment on above:Performed By: #### CXSTOOL #### [facility] [address] [address] [address] Ramsey SanchezCO2 [Moles/Vol]26.7 mmol/YTexcbs60.0-32.0The [facility] Comment on above:Performed By: #### CXSTOOL #### [facility] [address] [address] [address] Ramsey SanchezCreatinine [Mass/Vol]1.27 mg/dLNormal0.70-1.30The [facility] HospitalComment on above:Performed By: #### CXSTOOL #### [facility] [address] [address] [address] Mustafa ChangEGFR-AF RWANDAN>60Normal>=60The [facility] HospitalComment on above:Performed By: #### CXSTOOL #### [facility] [address] [address] [address] Ramsey CanoGFR-NON AF ANFVVMKF33 mL/min/1.05y6Fgizrivliz low>=60The [facility] HospitalComment on above:Performed By: #### CXSTOOL #### [facility] [address] [address] [address] Ramsey SanchezGlobulin (S) [Mass/Vol]3.9 g/dLNormalThe [facility] HospitalComment on above:Performed By: #### CXSTOOL #### [facility] [address] [address] [address] Ramsey SanchezGlucose [Mass/Vol]114 mg/dLCritically prys56-353Mnf [facility] HospitalComment on above:Performed By: #### CXSTOOL #### [facility] [address] [address] [address] Ramsey SanchezPotassium [Moles/Vol]4.3 mmol/LNormal3.5-5.1The [facility] Comment on above:Performed By: #### CXSTOOL #### [facility] [address] [address] [address] Ramsey SanchezProtein [Mass/Vol]7.6 g/dLNormal6.4-8.2[facility] Comment on above:Performed By: #### CXSTOOL #### [facility] [address] [address] [address] Ramsey SanchezSodium [Moles/Vol]139 mmol/KLggtac053-833Wky [facility] Comment on above:Performed By: #### CXSTOOL #### [facility] [address] [address] [address] Ramsey SanchezUrea nitrogen [Mass/Vol]19.0 mg/dLCritically high7.0-18.0The [facility] HospitalComment on above:Performed By: #### CXSTOOL #### [facility] [address] [place] [address] Dr. Ramsey Curiel nitrogen/Creatinine [Mass ratio]15.0 mg/mgNoWooster Community HospitalComment on above:Performed By: #### CXSTOOL #### [facility] [address] [place] [address] Dr. Ramsey SanchezXR CHEST 1 Von [id number] CHEST 1 VXR CHEST 1 V 09/24/2022 [...] Electronically authenticated by: TRACY HIGHTOWER Date: 2022-09-24 23:29NoWooster Community HospitalCOVID + FLU Quick Testingon 91-95-7088JQLF-CoV-2 (COVID-19) RNA MICHELLE+probe Ql (Unsp spec)PositiveDewy Rose [place] Other COVID + FLU Quick TestingNegativeNodoctors hospital of [facility] [place] Other POINT OF CARE GLUCOSEon 42-00-8534Pplxvre [Mass/Vol] 146 mg/dLCritically gdsa08-967Lye St. Vincent Hospitalment on above:Performed By: #### CXSTOOL #### [facility] [address] [place] [address] Dr. Ramsey Brar ARTERY UP EXT BILon [id number] ARTERY UP EXT BILEXAMINATION: US ARTERY UP [...] or aneurysm observed Electronically authenticated by: ERWIN GARCIA Date: 2022-04-16 17:21[facility] GeneralLACTOFERRIN FECAL QUANTon 15-73-8698Ebeqyenqutb, Fecal, Quant. 1.43 ug/mL(g)Normal0.00-7.24The St. Vincent Hospitalment on above:Result Comment: . Baseline (normal) 0.00 [...] bowel syndrome (IBS).Performed By: #### CXSTOOL #### [facility] [address] [place] [address] Dr. Ramsey EspinosaC AUTO DIFFon [id number] #0.1 103/ulNormal0.0-0.1The [facility] HospitalComment on above:Performed By: #### CBC #### [facility] [address] [place] [address] Dr. Ramsey SanchezBasophils/100 WBC (Bld)0.9 %Normal0.2-2.0The [facility] Comment on above:Performed By: #### CBC #### [facility] [address] [place] [address] Dr. Ramsey Ortiz #0.3 103/ulNormal0.0-0.7The [facility] HospitalComment on above: Performed By: #### CBC #### [facility] [address] [place] [address] Dr. Ramsey Canoosinophils/100 WBC (Bld)2.6 %Normal0.9-7.0The [facility] Comment on above:Performed By: #### CBC #### [facility] [address] [place] [address] Dr. Ramsey Canorythrocyte distribution width (RBC) [Ratio]13.2 %Jujrjb66.0-15.0 The [facility] HospitalComment on above:Performed By: #### CBC #### [facility] [address] [place] [address] Dr. Ramsey SanchezHematocrit (Bld) [Volume fraction]46.1 %Fzqnsr86.0-54.0The [facility] HospitalComment on above:Performed By: #### CBC #### [facility] [address] [place] [address] Dr. Ramsey SanchezHemoglobin (Bld) [Mass/Vol]14.5 g/jLRsfpfh92.0-18.0The [facility] HospitalComment on above:Performed By: #### CBC #### [facility] [address] [place] [address] Dr. Ramsey Nowak #0.15 10e3/ulCritically high0.00-0.03[facility] Comment on above:Performed By: #### CBC #### [facility] [address] [place] [address] Dr. Ramsey Nowak %1.3 %Critically high0.0-0.5The [facility] HospitalComment on above:Performed By: #### CBC #### [facility] [address] [place] [address] Dr. Ramsey Damon #2.7 103/ulNormal1.2-3.8The [facility] HospitalComment on above:Performed By: #### CBC #### [facility] [address] [place] [address] Dr. Ramsey Olivamphocytes/100 WBC (Bld)23.0 %Nmozhz10.5-60.0[facility] ClinicComment on above:Performed By: #### CBC #### [facility] [address] [place] [address] Dr. Ramsey Mckinley DIFF REQNONormalThe [facility] HospitalComment on above: Performed By: #### CBC #### [facility] [address] [place] [address] Dr. Ramsey Enriquez (RBC) [Entitic mass]31.0 ptJosukj17.9-34.0[facility] ClinicComment on above:Performed By: #### CBC #### [facility] [address] [place] [address] Dr. Ramsey Enriquez (RBC) [Mass/Vol]31.5 g/qDRclezi05.9-35.2The [facility] HospitalComment on above:Performed By: #### CBC #### [facility] [address] [place] [address] Dr. Ramsey Meyer (RBC) [Entitic vol]98.5 fLCritically high80.0-94.0The [facility] HospitalComment on above:Performed By: #### CBC #### [facility] [address] [place] [address] Dr. Ramsey Ignacio #0.9 103/ulCritically high0.3-0.8ThOhioHealth Berger Hospital Comment on above:Performed By: #### CBC #### [facility] [address] [place] [address] Dr. Ramsey Ervinocytes/100 WBC (Bld)7.4 %Normal1.7-12.0[facility] Comment on above:Performed By: #### CBC #### [facility] [address] [place] [address] Dr. Yilan ChangNEUT #7.6 103/ulCritically high1.4-6.5The [facility] Comment on above:Performed By: #### CBC #### [facility] [address] [place] [address] Dr. Ramsey Torresutrophils/100 WBC (Bld)64.8 %Cfdlma16.0-75.0[facility] ClinicComment on above:Performed By: #### CBC #### [facility] [address] [place] [address] Dr. Ramsey SanchezPlatelet mean volume (Bld) [Entitic vol]11.5 fLNormal9.5-13.5The [facility] HospitalComment on above:Performed By: #### CBC #### [facility] [address] [place] [address] Dr. Ramsey SanchezPLT243 103/hvYsfoub046-269Dac [facility] HospitalComment on above: Performed By: #### CBC #### [facility] [address] [place] [address] Dr. Ramsey SanchezRBC4.68 106/ulCritically low4.70-6.10The [facility] HospitalComment on above:Performed By: #### CBC #### [facility] [address] [place] [address] Dr. Ramsey SanchezWBC11.7 103/ulCritically high4.0-11.0[facility] ClinicComment on above:Performed By: #### CBC #### [facility] [address] [place] [address] Dr. Ramsey SanchezGLYCOHEMOGLOBIN A1Con [id number] RECOMMENDATIONSEE BELOWNormal The [facility] HospitalComment on above:Result Comment: ADA RECOMMENDED LIMIT 4.0 - 6.0 ADA THERAPEUTIC TARGET < 7.0 ACTION SUGGESTED > 7.0Performed By: #### A1C #### [facility] [address] [place] [address] Dr. Ramsey SanchezGlucose [Mass/Vol]123 mg/dLNormalThOhioHealth Berger HospitalComment on above:Performed By: #### A1C #### [facility] [address] [address] [address] Ramsey SanchezHbA1c (Bld) [Mass fraction]5.9 %Normal4.5-6.2The [facility] HospitalComment on above:Performed By: #### A1C #### [facility] [address] [address] [address] Ramsey SanchezLIPID PROFILEon 16-23-1729DWNX-HDL RATIO NORMSEE BELOWNoWooster Community HospitalComment on above:Result Comment: 3.3 - 4.4 LOW RISK 4.4 - 7.1 AVERAGE RISK 7.1 - 11.0 MODERATE RISK >11.0 HIGH RISKPerformed By: #### CBC #### [facility] [address] [place] [address] Dr. Ramsey SanchezCholesterol [Mass/Vol]121 mg/dLNormal<=200The [facility] Comment on above:Performed By: #### CBC #### [facility] [address] [address] [address] Ramsey SanchezCholesterol in HDL [Mass/Vol]30 mg/dLCritically oij51-08Qfj [facility] HospitalComment on above:Performed By: #### CBC #### [facility] [address] [place] [address] Dr. Ramsey SanchezCholesterol in LDL [Mass/Vol]47.6 mg/dLCleveland Clinic Akron GeneralComment on above:Performed By: #### CBC #### [facility] [address] [place] [address] Dr. Ramsey Lyonsestermary jo.total/Cholesterol in HDL [Mass ratio]4.0 {ratio} NormalThe [facility] HospitalComment on above:Performed By: #### CBC #### [facility] [address] [place] [address] Dr. Ramsey SanchezHDL NORMAL> or = 60 mg/dl - LOW CARDIOVASCULAR RISK <40 mg/dl - HIGH CARDIOVASCULAR RISKCleveland Clinic Akron GeneralComment on above:Performed By: #### CBC #### [facility] [address] [place] [address] Dr. Yilan ChangLDL CALC NORMALSEE BELOWNoWooster Community HospitalComment on above:Result Comment: <100 mg/dl OPTIMAL 100 - 129 mg/dl NEAR OR ABOVE OPTIMAL 130 - 159 mg/dl BORDERLINE HIGH 160 - 189 mg/dl HIGH >190 mg/dl VERY HIGH Performed By: #### CBC #### [facility] [address] [address] [address] Ramsey SanchezTriglyceride [Mass/Vol]217 mg/dLCritically high<=150The [facility] on above:Performed By: #### CBC #### [facility] [address] [address] [address] Ramsey SrinivasanLDL CALC43.4 mg/dLCleveland Clinic Akron GeneralComment on above: Performed By: #### CBC #### [facility] [address] [place] [address] Dr. Ramsey Eduardo PROFILEon 14-12-5140Bsfjrav [Mass/Vol]3.9 g/dLNormal3.4-5.0 [facility] on above:Performed By: #### CBC #### [facility] [address] [place] [address] Dr. aRmsey SanchezAlbumin/Globulin [Mass ratio]1.1 {ratio}NormalThe [facility] on above:Performed By: #### CBC #### [facility] [address] [place] [address] Dr. Ramsey Mcgrath [Catalytic activity/Vol]75 U/KVoxdbh29-839Ffd [facility] on above:Performed By: #### CBC #### [facility] [address] [address] [address] Ramsey Mclean [Catalytic activity/Vol]21 U/MDnwosm02-96Ker [facility] on above:Performed By: #### CBC #### [facility] [address] [address] [address] Ramsey Wilson [Catalytic activity/Vol]17 U/LVebofd48-77Kjn [facility] on above:Performed By: #### CBC #### [facility] [address] [address] [address] Ramsey CabelloI, CONJUGATED0.1 mg/dLNormal0.0-0.2[facility] Comment on above:Performed By: #### CBC #### [facility] [address] [address] [address] Ramsey SanchezBilirubin [Mass/Vol]0.4 mg/dLNormal0.2-1.0The [facility] Comment on above:Performed By: #### CBC #### [facility] [address] [address] [address] Ramsey SanchezGlobulin (S) [Mass/Vol]3.5 g/dLNormalThe [facility] HospitalComment on above:Performed By: #### CBC #### [facility] [address] [address] [address] Ramsey SanchezProtein [Mass/Vol]7.4 g/dLNormal6.4-8.2The [facility] Comment on above:Performed By: #### CBC #### [facility] [address] [address] [address] Ramsey DiamondROALBUMIN, RAND URon 11-38-6497dOEN<1.3Normal<=30.0[facility] ClinicComment on above:Performed By: #### MALBR #### [facility] [address] [place] [address] Dr. Ramsey SanchezPROF CHEM 8 (BAS METB)on 10-33-1655Plpkp gap [Moles/Vol]12.6 mmol/LNormalThe [facility] HospitalComment on above:Performed By: #### CBC #### [facility] [address] [address] [address] Ramsey SanchezCalcium [Mass/Vol]8.9 mg/dLNormal8.5-10.1[facility] Comment on above:Performed By: #### CBC #### [facility] [address] [address] [address] Ramsey SanchezChloride [Moles/Vol]103 mmol/GJjpmwd95-845Tfr [facility] Comment on above:Performed By: #### CBC #### [facility] [address] [address] [address] Ramsey SanchezCO2 [Moles/Vol]28.5 mmol/UArvtnt46.0-32.0The [facility] Comment on above:Performed By: #### CBC #### [facility] [address] [address] [address] Ramsey SanchezCreatinine [Mass/Vol]0.89 mg/dLNormal0.70-1.30The [facility] HospitalComment on above:Performed By: #### CBC #### [facility] [address] [address] [address] Ramsey CanoGFR-AF RWANDAN>60Normal>=60The [facility] HospitalComment on above:Performed By: #### CBC #### [facility] [address] [address] [address] Ramsey CanoGFR-NON AF RWANDAN>60Normal>=60The [facility] HospitalComment on above:Performed By: #### CBC #### [facility] [address] [address] [address] Ramsey SanchezGlucose [Mass/Vol]102 mg/nTPqncrj48-204NfoC[facility] Clinic Comment on above:Performed By: #### CBC #### [facility] [address] [address] [address] Ramsey SanchezPotassium [Moles/Vol]4.1 mmol/LNormal3.5-5.1The [facility] Comment on above:Performed By: #### CBC #### [facility] [address] [address] [address] Ramsey SanchezSodium [Moles/Vol]140 mmol/EEnetgd842-413Sps [facility] Comment on above:Performed By: #### CBC #### [facility] [address] [address] [address] Ramsey SanchezUrea nitrogen [Mass/Vol]16.0 mg/dLNormal7.0-18.0The [facility] HospitalComment on above:Performed By: #### CBC #### [facility] [address] [address] [address] Ramsey Curiel nitrogen/Creatinine [Mass ratio]18.0 mg/mgNoWooster Community HospitalComment on above:Performed By: #### CBC #### [facility] [address] [address] [address] Ramsey Beauchamp CULTUREon 66-66-7361Jghdxzzkijmua CultureFinal reportNormSouthern Ohio Medical CenterComment on above:Performed By: #### CXSTOOL #### [facility] [address] [place] [address] Dr. Ramsey alexandre Shiga Toxin EIANegativeOakdaleNegativeCleveland Clinic Comment on above:Performed By: #### CXSTOOL #### [facility] [address] [place] [address] Dr. Ramsey Chapman 1ComVan Wert County HospitalComment on above:Result Comment: No Salmonella or Shigella recovered.Performed By: #### CXSTOOL #### [facility] [address] [place] [address] Dr. Ramsey Chapman Comment: No Campylobacter species isolated. Salmonella/Shigella ScreenFinal reportCleveland Clinic Akron GeneralComselect specialty hospital on above:Performed By: #### CXSTOOL #### [facility] [address] [place] [address] Dr. Ramsey SanchezVITAMIN D 25 OHon 56-48-6012OJQ D 25-OH40.2 ng/mLNormalCleveland ClinicComment on above:Performed By: #### VITAD #### [facility] [address] [place] [address] Dr. Ramsey Araiza RANGESSEE Kindred HealthcareComselect specialty hospital on above: Result Comment: <20 ng/mL Vit D deficient 20 - <30 ng/mL Vit D insufficient 30 - 100 ng/mL Vit D sufficient >100 ng/mL Potential ToxicityPerformed By: #### VITAD #### [facility] [address] [place] [address] Dr. Ramsey Washburn GLUCOSE LABon 15-25-7388Nypdkjj [Mass/Vol]120 mg/kTUqll85-406 The Doctors HospitalComment on above:Performed By: #### [id number] #### [facility] [address] [place] [address], USAGlucose [Mass/Vol]114 mg/dSHhlo70-577Xso Doctors HospitalComment on above:Performed By: #### [id number] #### [facility] [address] [place] [address], USAGlucose [Mass/Vol]136 mg/qOXdam42-994Rfx Doctors HospitalComment on above:Performed By: #### [id number] #### [facility] [address] [place] [address], USABASIC METABOLIC PANELon 76-32-7516Kyatdnm [Mass/Vol]9.3 mg/dLNormal8.6-10.3The Doctors HospitalComment on above: Performed By: #### [id number] #### [facility] [address] [place] [address], USAChloride [Moles/Vol]103 mmol/CNgdmhk04-749Lii Doctors HospitalComment on above:Performed By: #### [id number] #### [facility] [address] [place] [address], USACO2 [Moles/Vol]27 mmol/MAthsak89-45Rjc Doctors HospitalComment on above:Performed By: #### [id number] #### [facility] [address] [place] [address], USACreatinine [Mass/Vol]1.04 mg/dLNormal0.70-1.30The Doctors HospitalComment on above:Performed By: #### [id number] #### [facility] [address] [place] [address], USAGFR/1.73 sq M predicted among blacks MDRD (S/P/Bld) [Vol rate/Area]mL/min/{1.73_m2}Normal>60The [facility] Comment on above:Result Comment: Calculation may not be valid for patients over 70 yearsPerformed By: #### [id number] #### [facility] [address] [place] [address], USAGFR/1.73 sq M predicted among non-blacks MDRD (S/P/Bld) [Vol rate/Area]mL/min/{1.73_m2}Normal>60The [facility] Comment on above:Result Comment: Calculation may not be valid for patients over 70 yearsPerformed By: #### [id number] #### [facility] [address] [place] [address], USAGlucose [Mass/Vol]128 mg/rFNftb26-625Bms Doctors HospitalComment on above:Performed By: #### [id number] #### [facility] [address] [address], USAPotassium [Moles/Vol]4.2 mmol/LNormal3.5-5.1The Doctors HospitalComment on above:Performed By: #### [id number] #### [facility] [address] [address], USASodium [Moles/Vol]139 mmol/QWvhbah737-640Epr Doctors HospitalComment on above:Performed By: #### [id number] #### [facility] [address] [place] [address], USAUrea nitrogen [Mass/Vol]20 mg/dLNormal7-25The Doctors HospitalComment on above:Performed By: #### [id number] #### [facility] [address] [place] [address], USACBC COMPLETE BLOOD COUNTon 73-75-2029Zpcnmggpwqh distribution width (RBC) [Ratio]13.9 %Jjuhxf02.5-15.0The Doctors HospitalComment on above:Performed By: #### [id number] #### [facility] [address] [place] [address], [facility] COUNTY MEDICAL CENTERHematocrit (Bld) [Volume fraction]44.9 %Eyblpn24.0-50.0The Doctors HospitalComment on above:Performed By: #### [id number] #### [facility] [address] [place] [address], USAHemoglobin (Bld) [Mass/Vol]14.5 g/mKGrcugl99.0-17.0The Doctors HospitalComment on above:Performed By: #### [id number] #### [facility] [address] [place] [address], [facility] COUNTY MEDICAL CENTERMCH (RBC) [Entitic mass]30.7 flUqinxi38.0-33.0The Doctors HospitalComment on above:Performed By: #### [id number] #### [facility] [address] [place] [address], [facility] COUNTY MEDICAL CENTERMCHC (RBC) [Mass/Vol]32.3 g/zLHqdpaw94.0-35.0The Doctors HospitalComment on above:Performed By: #### [id number] #### [facility] [address] [place] [address], [facility] MEDICAL CENTERMCV (RBC) [Entitic vol]95.1 qDNhbhmm82.0-98.0The Doctors HospitalComment on above:Performed By: #### [id number] #### [facility] [address] [place] [address], USANucleated RBC/100 WBC (Bld) [Ratio]0 %Normal0-0The Doctors HospitalComment on above:Performed By: #### [id number] #### [facility] [address] [place] [address], USAPLAT [id number] 10*3/bGYtrgtv737-906Fna Doctors HospitalComment on above:Performed By: #### [id number] #### [facility] [address] [address], USARBC (Bld) [#/Vol]4.72 10*6/uLNormal4.20-5.70The Doctors HospitalComment on above:Performed By: #### [id number] #### [facility] [address] [facility] [address], USAWBC (Bld) [#/Vol]12.83 10*3/uLHigh4.00-10.60The Doctors HospitalComment on above:Performed By: #### [id number] #### [facility] [address] [facility] [address], USACardiovascular Lab Reporton [id number] Lab ReportUnBlanchard Valley [facility] Name: Ginny [facility] MR #: [id number] Physician: Margaret Arellano, Department of M.D. Medicine Service Date: 08/30/2019 Division of Birthdate: 1940 Cardiology Room #: 3AB [id number] Adult Cardiovascular Services [place] [address] Cardiovascular Laboratory Report FINAL IMPRESSIONS: 1. 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 2. 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 3. 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 4. 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 Arellano in the [place] office in the next 2 to 4 [...] Arellano M.D. Date Trans: 08/30/2019 05:00 P/emmanuelle DN_JN:[id number] cc: Demetrius Cooper MD [place] [address] [facility], [address] [facility] [address]MhdukeOhbMercy Health [facility] CenterPO GLUCOSE LABon [id number] [Mass/Vol]172 mg/dITpzw95-585Tzb Doctors HospitalComment on above:Performed By: #### [id number] #### [facility] [address] [place] [address], [facility] CENTERGlucose [Mass/Vol]138 mg/lBDnod91-658Qck Doctors HospitalComment on above:Performed By: #### [id number] #### [facility] [address] [place] [address], [facility] Vital Signs Date TimeVital SignValuePerforming [id number] 13:46-0400Body .1 Alexsandra Cooper MD Work Phone: 1(697)[address] [place], [place] 3772410-23-2025 13:46-0400 Body mass index (BMI) [Ratio]25.7 kg/i9AppybsDemetrius Cooper MD Work Phone: 1(246)[address]10-23-2025 13:46-0400 Body .3 kgDemetrius Cooper MD Work Phone: 1(255)[address] [place], [place] 3772410-23-2025 13:46-0400 Diastolic blood iwoeirzm39 mm[Hg]Demetrius Cooper MD Work Phone: 1(544)[address] [place], [place] 3772410-23-2025 13:46-0400 Heart rate63 /minSleno Cooper MD Work Phone: 1(407)[address]10-23-2025 13:46-0400 Systolic blood gsgmozlw835 mm[Hg]Demetrius Cooper MD Work Phone: 1(151)[address] [place], [place] 3772409-04-2025 09:32-0400 Body qscpma500.1 cmFredharlan arh hospital Vandana BRAMBILA Work Phone: [facility] HospitalIjbosfzbsw71-25-1472 09:32-0400Body mass index (BMI) [Ratio]24.63 kg/t5Pexjsdb Itzkowitz DO Work Phone: [facility] HospitalLexnwajbwg59-85-4927 09:32-0400Body tjdufl10.13 kgFredric Itzkowitz DO Work Phone: [facility] HospitalThpwukyxmn43-90-5495 13:08-0400Body lqyztx07.12 kgDemetrius Cooper MD Work Phone: [facility]07-28-2025 13:30-0400 Body mass index (BMI) [Ratio]26.65 kg/u5FvksedjMary Schneider MD Work Phone: 1(205)767-[address] [place], [place] 4315507-28-2025 13:30-0400 Body .65 kgMary Schneider MD Work Phone: [address] [place], [place] 0706607-28-2025 13:30-0400 Diastolic blood ushbdmsl65 mm[Hg]Mary Schneider MD Work Phone: [address] [place], [place] 0706607-28-2025 13:30-0400 Systolic blood jetimdyj172 mm[Hg]Mary Schneider MD Work Phone: 1(022)536-85[facility]07-10-2025 09:57-0400 Body xfcosjttoli23 [degF]Demetrius Cooper MD Work Phone: [facility]07-10-2025 09:57-0400 Body xlklvi37.02 kgDemetrius Cooper MD Work Phone: [facility]07-10-2025 09:57-0400 Diastolic blood sqtpyfdv86 mm[Hg]Demetrius Cooper MD Work Phone: [facility]07-10-2025 09:57-0400 Heart rate68 /Rosalba Cooper MD Work Phone: [facility]07-10-2025 09:57-0400 Respiratory rate18 /Rosalba Cooper MD Work Phone: [facility]07-10-2025 09:57-0400 SaO2% (BldA) [Mass fraction]98 %Demetrius Cooper MD Work Phone: 1(415)[address]07-10-2025 09:57-0400 Systolic blood amyqqhyf382 mm[Hg]Demetrius Cooper MD Work Phone: 1(342)[address]05-28-2025 13:56-0400 Body wgemhq674.1 cmFredric Itzkowitz DO Work Phone: 1(361)[address] [place], [place] 4884105-28-2025 13:56-0400Body mass index (BMI) [Ratio]24.63 kg/r6Yvofdus Itzkowitz DO Work Phone: 1(765)[address] [place], [place] 4884105-28-2025 13:56-0400Body axdmok72.13 kgFredric Itzkowitz DO Work Phone: 1(731)[address] [place], [place] 4884105-21-2025 14:58-0400Body fuattj021.64 cmSleno Cooper MD Work Phone: 1(194)[address] [place], [place] 5022805-20-2025 12:00-0400 Diastolic blood xlikzbwe14 mm[Hg]Demetrius Cooper MD Work Phone: 1(760)[address] [place], [place] 5022805-20-2025 12:00-0400 Heart rate63 /Rosalba Cooper MD Work Phone: 1(985)[address] [place], [place] 5022805-20-2025 12:00-0400 Respiratory rate16 /Rosalba Cooper MD Work Phone: 1(357)[address] [place], [place] 5022805-20-2025 12:00-0400 SaO2% (BldA) [Mass fraction]95 %Demetrius Cooper MD Work Phone: 1(422)[address] [place], [place] 5022805-20-2025 12:00-0400 Systolic blood doqilblv274 mm[Hg]Demetrius Cooper MD Work Phone: 1(472)[address] [place], [place] 5022805-20-2025 11:30-0400 Inhaled oxygen flow rate4 L/Rosalba Cooper MD Work Phone: 1(812)[address] [place], [place] 5022805-20-2025 10:15-0400 Body geubfk566.1 Alexsandra Cooper MD Work Phone: [facility]05-20-2025 10:15-0400 Body gptohylwxxf57.3 [degF]Demetrius Cooper MD Work Phone: [facility]05-20-2025 10:15-0400 Body dbmxeo87.13 kgDemetrius Cooper MD Work Phone: [facility]05-15-2025 13:47-0400 Body xrxqte888.1 cmAngela Lowe PA Work Phone: [facility] HospitalAlnhyabdqa29-20-7294 13:47-0400Body mass index (BMI) [Ratio]24.63 kg/t6Axgrjw Lowe PA Work Phone: [facility] HospitalSosipnmzrz06-04-5801 13:47-0400Body .13 kgAngela Lowe PA Work Phone: [facility] HospitalObmywbxfif41-75-4572 13:47-0400Diastolic blood qzjnrcxa47 mm[Hg]Missy Lowe PA Work Phone: [facility] HospitalLjxrutibbw52-71-1499 13:47-0400Systolic blood boogmmhh414 mm[Hg]Missy Lowe PA Work Phone: [facility] HospitalLybidnaicd74-30-8286 13:20-0400Body .1 cmFredric Itzkowitz DO Work Phone: [facility] HospitalOzfuantwnu38-87-0599 13:20-0400Body mass index (BMI) [Ratio]24.96 kg/o8Rvmsrxe Itzkowitz DO Work Phone: [facility] HospitalDlzvfgwudj33-14-1262 13:20-0400Body .04 kgFredric Itzkowitz DO Work Phone: [facility] HospitalLjclerpejn74-00-6019 13:20-0400Diastolic blood wigesjnw49 mm[Hg]Veena Itzkowitz DO Work Phone: [facility] HospitalXetldxpvvf00-00-1306 13:20-0400Systolic blood irycubjl76 mm[Hg]Veena Adkins DO Work Phone: [facility] HospitalYdcrkwzyth92-12-1847 14:55-0400Body yhlchb799.1 Alexsandra Cooper MD Work Phone: 1(274)[address]05-13-2025 14:55-0400 Body mass index (BMI) [Ratio]24.6 kg/c9ZxtgotDemetrius Cooepr MD Work Phone: 1(930)[address]05-13-2025 14:55-0400 Body mxfuwbmiesa64.8 [degF]Demetrius Cooper MD Work Phone: 1(427)[address]05-13-2025 14:55-0400 Body otchdf18.13 kgDemetrius Cooper MD Work Phone: 1(132)[address]05-13-2025 14:55-0400 Diastolic blood ofnopbqy87 mm[Hg]Demetrius Cooper MD Work Phone: 1(042)[address]05-13-2025 14:55-0400 Heart rate66 /Rosalba Cooper MD Work Phone: 1(347)[address]05-13-2025 14:55-0400 Systolic blood fmyoihne92 mm[Hg]Demetrius Cooper MD Work Phone: 1(266)[address]05-07-2025 21:13-0400 Body .6 [degF]Demetrius Cooper MD Work Phone: 1(264)[address]05-07-2025 21:13-0400 Diastolic blood mm[Hg]Demetrius Cooper MD Work Phone: 1(554)[address]05-07-2025 21:13-0400 Heart rate68 /Rosalba Cooper MD Work Phone: 1(785)[address]05-07-2025 21:13-0400 Respiratory rate18 /Rosalba Cooper MD Work Phone: 1(711)[address]05-07-2025 21:13-0400 SaO2% (BldA) [Mass fraction]96 %Demetrius Cooper MD Work Phone: 1(287)632-00[facility]05-07-2025 21:13-0400 Systolic blood tzwlburc142 mm[Hg]Demetrius Cooper MD Work Phone: 1(211)420-[address] [place], [place] 5505305-07-2025 15:13-0400 Body kvwyih309.1 Alexsandra Cooper MD Work Phone: 1(408)001-[address] [place], [place] 5505305-07-2025 15:13-0400 Body qqlqva79 kgDemetrius Cooper MD Work Phone: 1(387)[address]04-28-2025 13:07-0400 Body drlyhi391.1 cmMary Schneider MD Work Phone: 1(398)[address]04-28-2025 13:07-0400 Body mass index (BMI) [Ratio]24.84 kg/m5OpgsrezMary Schneider MD Work Phone: 1216640 [address]04-28-2025 13:07-0400 Body cbazosdejgu20.8 [degF]Mary Schneider MD Work Phone: 1216540 [address]04-28-2025 13:07-0400 Body pozcih25.72 kgMary Schneider MD Work Phone: 1216140 [address]04-28-2025 10:14-0400 Body ikrryd527.56 Alexsandra Cooper MD Work Phone: 1(917)225-06[facility]04-28-2025 10:14-0400 Body mass index (BMI) [Ratio]25.7 kg/l7ZjhwjyDemetrius Cooper MD Work Phone: 1(149)109-[address] [place], [place] 5505304-28-2025 10:140400 Body nigido12.03 Franklyn Cooper MD Work Phone: 1(031)482-[address] [place], [place] 5505304-28-2025 10:14-0400 Diastolic blood mm[Hg]Demetrius Cooper MD Work Phone: 1(520)047-[address] [place], [place] 5505304-28-2025 10:14-0400 Heart rate76 /Rosalba Cooper MD Work Phone: 1(538)[address]04-28-2025 10:14-0400 SaO2% (BldA) [Mass fraction]98 %Demetrius Cooper MD Work Phone: 1(565)[address] [place], [place] 5022804-28-2025 10:14-0400 Systolic blood qmursfqi925 mm[Hg]Demetrius Cooper MD Work Phone: 1(111)[address] [place], [place] 5022804-09-2025 09:49-0400 Body hzpvpjdontd08.5 [degF]Demetrius Cooper MD Work Phone: 1(068)[address] [place], [place] 5022804-09-2025 09:49-0400 Body iumgjm52.12 kgDemetrius Cooper MD Work Phone: 1(495)[address] [place], [place] 5022804-09-2025 09:49-0400 Diastolic blood bivqocyv37 mm[Hg]Demetrius Cooper MD Work Phone: 1)[address] [place], [place] 5022804-09-2025 09:49-0400 Heart rate94 /Rosalba Cooper MD Work Phone: 1(544)[address] [place], [place] 5022804-09-2025 09:49-0400 Respiratory rate20 /Rosalba Cooper MD Work Phone: 1(955)[address] [place], [place] 5022804-09-2025 09:49-0400 SaO2% (BldA) [Mass fraction]98 %Demetrius Cooper MD Work Phone: 1(607)[address] [place], [place] 5022804-09-2025 09:49-0400 Systolic blood kdmcvzer345 mm[Hg]Demetrius Cooper MD Work Phone: 1(860)[address] [place], [place] 5022804-07-2025 12:53-0400 Body .64 cmSleno Cooper MD Work Phone: 1(868)[address] [place], [place] 5022804-07-2025 11:36-0400 Body hangyasumzi43 [degF]Demetrius Cooper MD Work Phone: 1(473)[address] [place], [place] 5022804-07-2025 11:36-0400 Diastolic blood ijwthrqz60 mm[Hg]Demetrius Cooper MD Work Phone: 1(360)[address]04-07-2025 11:36-0400 Heart rate76 /Rosalba Cooper MD Work Phone: 1(795)[address] [place], [place] 5022804-07-2025 11:36-0400 Respiratory rate18 /Rosalba Cooper MD Work Phone: 1(293)[address] [place], [place] 5022804-07-2025 11:36-0400 SaO2% (BldA) [Mass fraction]96 %Demetrius Cooper MD Work Phone: 1(590)[address] [place], [place] 5022804-07-2025 11:36-0400 Systolic blood mikmzulb486 mm[Hg]Demetrius Cooper MD Work Phone: 1(680)[address] [place], [place] 5022804-07-2025 04:13-0400 Body .9 kgDemetrius Cooper MD Work Phone: 1(394)[address] [place], [place] 5022804-06-2025 19:00-0400 Diastolic blood slethwnc35 mm[Hg]Demetrius Cooper MD Work Phone: 1(429)[address] [place], [place] 5022804-06-2025 19:00-0400 Heart rate61 /Rosalba Cooper MD Work Phone: 1(204)[address] [place], [place] 5022804-06-2025 19:00-0400 Respiratory rate18 /Rosalba Cooper MD Work Phone: 1(285)[address] [place], [place] 5022804-06-2025 19:00-0400 SaO2% (BldA) [Mass fraction]92 %Demetrius Cooper MD Work Phone: 1(796)[address] [place], [place] 5022804-06-2025 19:00-0400 Systolic blood ntnngolf239 mm[Hg]Demetrius Cooper MD Work Phone: 1(006)[address] [place], [place] 5022804-06-2025 18:04-0400 Body febvhzsbfwm45.1 [degF]Demetrius Cooper MD Work Phone: 1(655)[address] [place], [place] 5022804-06-2025 16:57-0400 Body biyert211.56 cmSleno Cooper MD Work Phone: 1(489)[address]04-06-2025 16:57-0400 Body ujwgnx73.6 kgDemetrius Cooper MD Work Phone: 1(709)[address] [place], [place] 5022804-03-2025 08:23-0400 Body ukepeb607.64 Alexsandra Cooper MD Work Phone: 1(569)[address] [place], [place] 5022804-03-2025 08:23-0400 Body hnmmmjvnusy73.3 [degF]Demetrius Cooper MD Work Phone: 1(971)[address] [place], [place] 5022804-03-2025 08:23-0400 Body .25 Franklyn Cooper MD Work Phone: 1(305)[address] [place], [place] 5022804-03-2025 08:23-0400 Diastolic blood mm[Hg]Demetrius Cooper MD Work Phone: 1(691)[address] [place], [place] 5022804-03-2025 08:23-0400 Heart rate90 /Rosalba Cooper MD Work Phone: 1(659)[address] [place], [place] 5022804-03-2025 08:23-0400 Respiratory rate18 /Rosalba Cooper MD Work Phone: 1(549)[address] [place], [place] 5022804-03-2025 08:23-0400 SaO2% (BldA) [Mass fraction]95 %Demetrius Cooper MD Work Phone: 1(152)[address] [place], [place] 5022804-03-2025 08:23-0400 Systolic blood qmdcuiyg449 mm[Hg]Demetrius Cooper MD Work Phone: 1(763)[address] [place], [place] 5022804-02-2025 09:18-0400 Body ydhqbc58.4 Franklyn Cooper MD Work Phone: 1(239)[address] [place], [place] 5022803-27-2025 15:40-0400 Body glwfuv731.64 Alexsandra Cooper MD Work Phone: 1(156)[address] [place], [place] 5022803-27-2025 08:25-0400 Body cwrkjsukvoh00.8 [degF]Demetrius Cooper MD Work Phone: 1(782)[address] [place], [place] 5022803-27-2025 08:25-0400 Diastolic blood yjenmomq28 mm[Hg]Demetrius Cooper MD Work Phone: 1(649)[address] [place], [place] 5022803-27-2025 08:25-0400 Heart rate68 /Rosalba Cooper MD Work Phone: 1(419)[address] [place], [place] 5022803-27-2025 08:25-0400 Respiratory rate18 /Rosalba Cooper MD Work Phone: 1(419)[address] [place], [place] 5022803-27-2025 08:25-0400 SaO2% (BldA) [Mass fraction]94 %Demetrius Cooper MD Work Phone: 1(419)[address] [place], [place] 5022803-27-2025 08:25-0400 Systolic blood cpcdobgv610 mm[Hg]Demetrius Cooper MD Work Phone: 1(419)[address] [place], [place] 5022803-26-2025 09:28-0400 Body etubgj68.1 kgDemetrius Cooper MD Work Phone: 1(419)[address] [place], [place] 5022803-26-2025 09:16-0400 Body avsftk92.1 Franklyn Cooper MD Work Phone: 1(419)[address] [place], [place] 5022803-26-2025 09:16-0400 Diastolic blood pobemqha06 mm[Hg]Demetrius Cooper MD Work Phone: 1(419)[address] [place], [place] 5022803-26-2025 09:16-0400 Heart rate77 /Rosalba Cooper MD Work Phone: 1(419)[address] [place], [place] 5022803-26-2025 09:16-0400 Respiratory rate18 /Rosalba Cooper MD Work Phone: 1(419)[address] [place], [place] 5022803-26-2025 09:16-0400 SaO2% (BldA) [Mass fraction]97 %Demetrius Cooper MD Work Phone: 1(419)[address] [place], [place] 5022803-26-2025 09:16-0400 Systolic blood ulcknaeg141 mm[Hg]Demetrius Cooper MD Work Phone: 1(419)[address] [place], [place] 5022803-20-2025 09:58-0400 Body ioxrza559.64 Alexsandra Cooper MD Work Phone: 1(845)[address] [place], [place] 5022803-20-2025 08:27-0400 Body eyuelqidxqz67.9 [degF]Demetrius Cooper MD Work Phone: 1419)[address] [place], [place] 5022803-20-2025 08:27-0400 Diastolic blood mm[Hg]Demetrius Cooper MD Work Phone: 1419)[address] [place], [place] 5022803-20-2025 08:27-0400 Heart rate85 /Rosalba Cooper MD Work Phone: 1(419)[address] [place], [place] 5022803-20-2025 08:27-0400 Respiratory rate18 /Rosalba Cooper MD Work Phone: 1(808)[address] [place], [place] 5022803-20-2025 08:27-0400 SaO2% (BldA) [Mass fraction]95 %Demetrius Cooper MD Work Phone: 1(834)[address] [place], [place] 5022803-20-2025 08:27-0400 Systolic blood mm[Hg]Demetrius Cooper MD Work Phone: 1(471)[address] [place], [place] 5022803-14-2025 16:29-0400 Body flwvul260.64 Alexsandra Cooper MD Work Phone: 1(906)[address] [place], [place] 5022803-13-2025 08:28-0400 Body njsnmoxpvsm12.1 [degF]Demetrius Cooper MD Work Phone: 1(770)[address] [place], [place] 5022803-13-2025 08:28-0400 Body uhcdcg38.2 kgDemetrius Cooper MD Work Phone: 1(419)[address] [place], [place] 5022803-13-2025 08:28-0400 Diastolic blood jauazvtt39 mm[Hg]Demetrius Cooper MD Work Phone: 1(864)[address] [place], [place] 5022803-13-2025 08:28-0400 Heart rate62 /Rosalba Cooper MD Work Phone: 1(836)[address] [place], [place] 5022803-13-2025 08:28-0400 Respiratory rate18 /Rosalba Cooper MD Work Phone: 1(045)[address]03-13-2025 08:28-0400 SaO2% (BldA) [Mass fraction]95 %Demetrius Cooper MD Work Phone: 1(469)[address] [place], [place] 5022803-13-2025 08:28-0400 Systolic blood dqkjixkt981 mm[Hg]Demetrius Cooper MD Work Phone: 1(658)[address] [place], [place] 5022803-12-2025 08:23-0400 Body iywvloyhaku97.6 [degF]Demetrius Cooper MD Work Phone: 1(907)[address] [place], [place] 5022803-12-2025 08:23-0400 Body ypeprs44.48 kgDemetrius Cooper MD Work Phone: 1(014)[address] [place], [place] 5022803-12-2025 08:23-0400 Diastolic blood iyviugqw75 mm[Hg]Demetrius Cooper MD Work Phone: 1(641)[address] [place], [place] 5022803-12-2025 08:23-0400 Heart rate64 /Rosalba Cooper MD Work Phone: 1(736)[address] [place], [place] 5022803-12-2025 08:23-0400 Respiratory rate20 /Rosalba Cooper MD Work Phone: 1(960)[address] [place], [place] 5022803-12-2025 08:23-0400 SaO2% (BldA) [Mass fraction]96 %Demetrius Cooper MD Work Phone: 1(283)[address] [place], [place] 5022803-12-2025 08:23-0400 Systolic blood mm[Hg]Demetrius Cooper MD Work Phone: 1(930)[address] [place], [place] 5022803-06-2025 10:18-0500 Body mbiblo76.38 kgDemetrius Cooper MD Work Phone: 1(480)[address] [place], [place] 5022803-06-2025 08:46-0500 Body bgzxlxylwib56.8 [degF]Demetrius Cooper MD Work Phone: 1(198)[address] [place], [place] 5022803-06-2025 08:46-0500 Body xyrgpd10.84 kgDemetrius Cooper MD Work Phone: 1(419)483-[address] [place], [place] 5505303-06-2025 08:46-0500 Diastolic blood txvwygfh31 mm[Hg]Demetrius Cooper MD Work Phone: 1(439)[address]03-06-2025 08:46-0500 Heart rate68 /Rosalba Cooper MD Work Phone: 1(354)[address] [place], [place] 5022803-06-2025 08:46-0500 Respiratory rate20 /Rosalba Cooper MD Work Phone: 1(256)[address] [place], [place] 5022803-06-2025 08:46-0500 SaO2% (BldA) [Mass fraction]97 %Demetrius Cooper MD Work Phone: 1(725)[address] [place], [place] 5022803-06-2025 08:46-0500 Systolic blood dynrvrtd942 mm[Hg]Demetrius Cooper MD Work Phone: 1(432)[address] [place], [place] 5022803-04-2025 08:50-0500 Body kesjrz779.64 cmSleno Cooper MD Work Phone: 1(814)[address] [place], [place] 5022803-03-2025 14:33-0500 Diastolic blood bfcpauez63 mm[Hg]Demetrius Cooper MD Work Phone: 1(433)[address] [place], [place] 5022803-03-2025 14:33-0500 Heart rate59 /Rosalba Cooper MD Work Phone: 1(014)[address] [place], [place] 5022803-03-2025 14:33-0500 Respiratory rate16 /Rosalba Cooper MD Work Phone: 1(741)[address] [place], [place] 5022803-03-2025 14:33-0500 SaO2% (BldA) [Mass fraction]96 %Demetrius Cooper MD Work Phone: 1(537)[address] [place], [place] 5022803-03-2025 14:33-0500 Systolic blood rvmpsasu757 mm[Hg]Demetrius Cooper MD Work Phone: 1(495)[address] [place], [place] 5022803-03-2025 13:48-0500 Body aojeiimpzdg38.3 [degF]Demetrius Cooper MD Work Phone: 1(918)[address] [place], [place] 5022803-03-2025 10:40-0500 Body hplqde111.1 Alexsandra Cooper MD Work Phone: 1(254)[address]03-03-2025 10:40-0500 Body ezgiom80.11 Franklyn Cooper MD Work Phone: 1(846)[address] [place], [place] 5022802-27-2025 16:08-0500 Body ceuycg250.64 Alexsandra Cooper MD Work Phone: 1(829)[address] [place], [place] 5022802-27-2025 08:37-0500 Body xdpmrezvija37.8 [degF]Demetrius Cooper MD Work Phone: 1(789)[address] [place], [place] 5022802-27-2025 08:37-0500 Body leiqjm60.01 kgDemetrius Cooper MD Work Phone: 1(342)[address] [place], [place] 5022802-27-2025 08:37-0500 Diastolic blood ruhzmwrd44 mm[Hg]Demetrius Cooper MD Work Phone: 1(294)[address] [place], [place] 5022802-27-2025 08:37-0500 Heart rate64 /Rosalba Cooper MD Work Phone: 1(617)[address] [place], [place] 5022802-27-2025 08:37-0500 Respiratory rate18 /Rosalba Cooper MD Work Phone: 1(021)[address] [place], [place] 5022802-27-2025 08:37-0500 SaO2% (BldA) [Mass fraction]95 %Demetrius Cooper MD Work Phone: 1(494)[address] [place], [place] 5022802-27-2025 08:37-0500 Systolic blood ucqszwro387 mm[Hg]Demetrius Cooper MD Work Phone: 1(000)[address] [place], [place] 5022802-26-2025 08:41-0500 Body .3 [degF]Demetrius Cooper MD Work Phone: 1(022)[address] [place], [place] 5022802-26-2025 08:41-0500 Body nqxrva75.65 Franklyn Cooper MD Work Phone: 1(736)[address] [place], [place] 5022802-26-2025 08:41-0500 Diastolic blood xdthylwr40 mm[Hg]Demetrius Cooper MD Work Phone: 1(043)[address] [place], [place] 5022802-26-2025 08:41-0500 Heart rate61 /Rosalba Cooper MD Work Phone: 1(877)[address] [place], [place] 5022802-26-2025 08:41-0500 Respiratory rate20 /Rosalba Cooper MD Work Phone: 1(672)[address] [place], [place] 5022802-26-2025 08:41-0500 SaO2% (BldA) [Mass fraction]96 %Demetrius Cooper MD Work Phone: 1(288)[address] [place], [place] 5022802-26-2025 08:41-0500 Systolic blood rhbgoskb132 mm[Hg]Demetrius Cooper MD Work Phone: 1(324)[address] [place], [place] 5022802-20-2025 11:06-0500 Body raucog934.64 cmSleno Cooper MD Work Phone: 1(406)[address] [place], [place] 5022802-20-2025 08:36-0500 Body ahmedqetgqz24.6 [degF]Demetrius Cooper MD Work Phone: 1(276)[address] [place], [place] 5022802-20-2025 08:36-0500 Body .83 kgDemetrius Cooper MD Work Phone: 1(648)[address] [place], [place] 5022802-20-2025 08:36-0500 Diastolic blood svhkwroc62 mm[Hg]Demetrius Cooper MD Work Phone: 1(020)[address] [place], [place] 5022802-20-2025 08:36-0500 Heart rate63 /Rosalba Cooper MD Work Phone: 1(712)[address] [place], [place] 5022802-20-2025 08:36-0500 Respiratory rate18 /Rosalba Cooper MD Work Phone: 1(990)[address] [place], [place] 5022802-20-2025 08:36-0500 SaO2% (BldA) [Mass fraction]95 %Demetrius Cooper MD Work Phone: 1(039)[address] [place], [place] 5022802-20-2025 08:36-0500 Systolic blood hcwezbad990 mm[Hg]Demetrius Cooper MD Work Phone: 1(838)[address]02-06-2025 14:58-0500 Body wczfiz517.56 cmSleno Cooper MD Work Phone: 1(505)[address] [place], [place] 5022802-06-2025 14:58-0500 Body nhtwftrbrud41.5 [degF]Demetrius Cooper MD Work Phone: 1(077)[address] [place], [place] 5022802-06-2025 14:58-0500 Body xpcpta27 kgDemetrius Cooper MD Work Phone: 1(510)[address] [place], [place] 5022802-06-2025 14:58-0500 Diastolic blood kbvpenmd54 mm[Hg]Demetrius Cooper MD Work Phone: 1(151)[address] [place], [place] 5022802-06-2025 14:58-0500 Heart rate50 /Rosalba Cooper MD Work Phone: 1(295)[address] [place], [place] 5022802-06-2025 14:58-0500 Respiratory rate20 /Rosalba Cooper MD Work Phone: 1(520)[address] [place], [place] 5022802-06-2025 14:58-0500 SaO2% (BldA) [Mass fraction]95 %Demetrius Cooper MD Work Phone: 1(249)[address] [place], [place] 5022802-06-2025 14:58-0500 Systolic blood ooilqmvz351 mm[Hg]Demetrius Cooper MD Work Phone: 1(165)[address] [place], [place] 5022802-04-2025 14:38-0500 Body cmAlrenny Bell MD Work Phone: [facility]Pdwmvrxumc17-40-9764 14:38-0500Body mass index (BMI) [Ratio]30.11 kg/g0VangosMatteo Bell MD Work Phone: [facility] HospitalEpudhclcqh90-49-7147 14:38-0500Body ixmckd14.11 kgMatteo Bell MD Work Phone: [facility] HospitalYqjpjpxaap72-48-1570 14:38-0500Diastolic blood rfuspmbh19 mm[Hg]Matteo Bell MD Work Phone: [facility] HospitalBiganywguh88-40-9344 14:38-0500Systolic blood gnqjsjar307 mm[Hg]Matteo Bell MD Work Phone: [facility] HospitalFsyunzyuvs87-96-2826 10:45-0500Body bjekla598.64 Alexsandra Cooper MD Work Phone: 1(655)[address]01-29-2025 10:45-0500 Body mass index (BMI) [Ratio]27.6 kg/z1ToabtkDemetrius Cooper MD Work Phone: 1(950)[address]01-29-2025 10:45-0500 Body .6 [degF]Demetrius Cooper MD Work Phone: 1(863)[address] [place], [place] 5022801-29-2025 10:45-0500 Body xwcdeb71.56 kgDemetrius Cooper MD Work Phone: 1(771)[address]01-29-2025 10:45-0500 Diastolic blood iisqhdro04 mm[Hg]Demetrius Cooper MD Work Phone: 1(969)[address]01-29-2025 10:45-0500 Heart rate69 /Rosalba Cooper MD Work Phone: 1(611)[address] [place], [place] 5022801-29-2025 10:45-0500 Respiratory rate20 /Rosalba Cooper MD Work Phone: 1(860)[address] [place], [place] 5022801-29-2025 10:45-0500 Systolic blood jnrkyacz830 mm[Hg]Demetrius Cooper MD Work Phone: 1(641)[address]01-29-2025 09:53-0500 Body wmqryu649.64 Alexsandra Cooper MD Work Phone: 1(864)[address] [place], [place] 5022801-29-2025 09:53-0500 Body mass index (BMI) [Ratio]27.6 kg/o0OfstrxDemetrius Cooper MD Work Phone: 1(539)[address]01-29-2025 09:53-0500 Body nniyxrdmuch10.6 [degF]Demetrius Cooper MD Work Phone: [facility]01-29-2025 09:53-0500 Body oucyqp46.56 kgDemetrius Cooper MD Work Phone: 1(447)954-08[facility]01-29-2025 09:53-0500 Diastolic blood cckoruib88 mm[Hg]Demetrius Cooper MD Work Phone: 1(032)756-[address] [place], [place] 5505301-29-2025 09:53-0500 Heart rate69 /Rosalba Cooper MD Work Phone: 1(999)[address]01-29-2025 09:53-0500 Respiratory rate20 /Rosalba Cooper MD Work Phone: 1(213)[address]01-29-2025 09:53-0500 SaO2% (BldA) [Mass fraction]96 %Demetrius Cooper MD Work Phone: 1(129)[address]01-29-2025 09:53-0500 Systolic blood ulzgdhov288 mm[Hg]Demetrius Cooper MD Work Phone: 1(919)358-97[facility]01-20-2025 14:13-0500 Diastolic blood biwqjgft87 mm[Hg][address] 06-05-2024 14:13-0500Heart rate65 /minCmc [address] [place] [address] 06-05-2024 14:13-0500Respiratory rate16 /minCmc [address] [place], [place] 6721901-20-2025 14:13-2205WqU1% (BldA) [Mass fraction]96 %[address]01-20-2025 14:13-0500Systolic blood vlslitkz334 mm[Hg][address]01-20-2025 12:22-0500Body dfxhmmhzzpa46.2 [degF][address]01-14-2025 11:16-0500Body height 162.6 cmMary Schneider MD Work Phone: [facility]01-14-2025 11:16-0500 Body mass index (BMI) [Ratio]28.89 kg/c7ZhjjwfoMary Schneider MD Work Phone: 1(831)087-26[facility]01-14-2025 11:16-0500 Body mxwcdvijois36.2 [degF]Mary Schneider MD Work Phone: 1(553)279-[address] [place], [place] 4315501-14-2025 11:16-0500 Body nckaqa56.34 kgMary Schneider MD Work Phone: 1(360)796-50[facility]12-26-2024 10:00-0500 Body zgapshibjed58.7 [degF]Mary Schneider MD Work Phone: 1(154)027-[address] [place], [place] 4315512-26-2024 10:00-0500 Diastolic blood jnuhxgnc09 mm[Hg]Mary Schneider MD Work Phone: 1(215)461-[address] [place], [place] 4315512-26-2024 10:00-0500 Heart rate61 /Guerda Schneider MD Work Phone: 1(278)066-[address] [place], [place] 4315512-26-2024 10:00-0500 Respiratory rate14 /Guerda Schneider MD Work Phone: 1(446)553-[address] [place], [place] 4315512-26-2024 10:00-0500 SaO2% (BldA) [Mass fraction]95 %Mary Schneider MD Work Phone: 1(774)183-[address] [place], [place] 4315512-26-2024 10:00-0500 Systolic blood wmtqydfn320 mm[Hg]Mary Schneider MD Work Phone: 1(766)356-[address] [place], [place] 4315512-26-2024 06:08-0500 Body tjycic895.6 cmMary Schneider MD Work Phone: 1(626)829-[address] [place] [address]-26-2024 06:08-0500 Body mass index (BMI) [Ratio]29.52 kg/h2QvcpbngMary Schneider MD Work Phone: 1(780)143-[address] [place], [place] 4315512-26-2024 06:08-0500 Body zbtspa01 kgMary Schneider MD Work Phone: [facility]11-22-2024 10:40-0500 Body .6 cmMary Schneider MD Work Phone: [facility]11-22-2024 10:40-0500 Body mass index (BMI) [Ratio]29.18 kg/m0RyhdvwqMary Schneider MD Work Phone: [facility]11-22-2024 10:40-0500 Body laiwyu65.11 kgMary Schneider MD Work Phone: [facility]11-13-2024 10:06-0500 Body elhbkf689.6 cmLuc Ham MD Work Phone: [place] [address]Ubkxpnbryq22-68-0815 10:06-0500Body mass index (BMI) [Ratio]29.7 kg/a1ZvfwrbLuc Ham MD Work Phone: [place] [address]Halxiafwyf19-78-3738 10:06-0500Body sjtwim16.47 kgLuc Ham MD Work Phone: [place] [address]Yvaktbuzrw90-17-8096 10:06-0500Diastolic blood nfvgcumy21 mm[Hg]Luc Ham MD Work Phone: [place] [address]Esbzeglvav14-71-1423 10:06-0500Systolic blood pyyxomtp520 mm[Hg]Luc Ham MD Work Phone: [place] [address]Xpsmdriwfj96-43-9420 14:06-0500Blood Pressure LocationMuhammad Sarmini 056-6340Vaoggx-EsfykWhite Hospital11-07-2024 14:06-0500Diastolic blood kcchnduq14 mm[Hg]Wiley Lilymini 924-4310Hegjsx-YsufiWhite Hospital11-07-2024 14:06-0500Heart rate71 /minMuhammad Sarmini 688-4907Gfoyut-TukqiWhite Hospital11-07-2024 14:06-0500Respiratory rate16 /minMuella Henderson 344-1254Vgjgeu-KofutWhite Hospital11-07-2024 14:06-0500Systolic blood tmwtnupn932 mm[Hg]Inez Henderson 666-4473Gshrlg-SgptoWhite Hospital10-23-2024 09:25-0400Body imhwmu767.6 cmLuc Ham MD Work Phone: 1(463)[address] [place], [place] 5371410-23-2024 09:25-0400Body mass index (BMI) [Ratio]29.87 kg/a7LzracpLuc Ham MD Work Phone: 1(388)[address] [place], [place] 5371410-23-2024 09:25-0400Body ofxbde96.93 kgLuc Ham MD Work Phone: 1(922)[address] [place], [place] 5371410-23-2024 09:25-0400Diastolic blood kffvejud36 mm[Hg]Luc Ham MD Work Phone: 1(730)[address] [place], [place] 5371410-23-2024 09:25-0400Systolic blood exbvodsa382 mm[Hg]Luc Ham MD Work Phone: 1(607)[address] [place], [place] 5371410-02-2024 14:19-0400Body szkdeq824.6 Edgar Ham MD Work Phone: 1(519)[address] [place], [place] 5371410-02-2024 14:19-0400Body mass index (BMI) [Ratio]29.87 kg/p8NqaivpLuc Ham MD Work Phone: 1(067)[address] [place] [address]-02-2024 14:19-0400Body irdngh07.93 kgLuc Ham MD Work Phone: 1(026)[address] [place] [address]-02-2024 14:19-0400Diastolic blood skcmjsju53 mm[Hg]Luc Ham MD Work Phone: 1(022)[address] [place] [address]-02-2024 14:19-0400Systolic blood qjjlwqbe547 mm[Hg]Luc Ham MD Work Phone: 1(687)[address] [place] [address]-02-2024 08:59-0400Body .6 cmAngela Lowe PA Work Phone: [facility] HospitalYpwrvjwsuj50-53-7277 08:59-0400Body mass index (BMI) [Ratio]29.7 kg/q7Iayvxn Lowe PA Work Phone: [facility] HospitalKymxeyxish79-39-4679 08:59-0400Body pwagjz16.47 kgAngela Lowe PA Work Phone: 1(513)[facility] [place], [place] [address]Fwglzxsmvj89-40-2466 08:59-0400Diastolic blood mm[Hg]Missy Lowe PA Work Phone: 1(385)579-[address] [place], [place] [address]Iwidongwpb48-83-2472 08:59-0400Systolic blood wlagreic664 mm[Hg]Missy Lowe PA Work Phone: [place] [address]Zqqmyqbyxj47-39-0602 13:07-0400Body akumcm426.6 cmLuc Ham MD Work Phone: 1(462)[facility]-[address] [place], [place] [address]Sbdolkkcgy61-47-5543 13:07-0400Body mass index (BMI) [Ratio]29.52 kg/y2OrjvdrLuc Ham MD Work Phone: 1(445)[facility] [place] [address]-17-2024 13:07-0400Body ecpama29.02 kgLuc Ham MD Work Phone: 1(080)[facility]-[address] [address]Pdsgavnejj69-44-4000 13:07-0400Diastolic blood dkmmdvob69 mm[Hg]Luc Ham MD Work Phone: 1(699)[address] [place], [place] 5371409-17-2024 13:07-0400Systolic blood emuemdzi664 mm[Hg]Luc Ham MD Work Phone: 1(947)7659074[facility] HospitalHogyywryzh96-79-3774 14:32-0400Blood Pressure LocationMuella Josephi 046-6453Ymaiuw-GnsvxCleveland [facility] Kjlxoh97-92-2906 14:32-0400Diastolic blood kauuysxq68 mm[Hg]Inez Bautistamini 776-6883Bjkjog-DqziqWhite Hospital06-06-2024 14:32-0400Heart rate73 /minMuhammad Sarmini 035-8297Qlbsfi-RvwoiWhite Hospital06-06-2024 14:32-0400Respiratory rate18 /minMuhammad Sarmini 254-5302Gsigbi-XctfgWhite Hospital06-06-2024 14:32-0400Systolic blood mfzeiniu882 mm[Hg]Wiley Lilymini 486-9303Mkfzrf-TrbgoWhite Hospital05-03-2024 08:58-0400Blood Pressure LocationBeth Flori 253-2097Ivlkpy-VpfzfWhite Hospital05-03-2024 08:58-0400Body qzjthcrmrop25.34 [degF]Anjali Rodriguezz 575-8305Bwetnd-XbbziWhite Hospital05-03-2024 08:58-0400Diastolic blood ykrivsnt65 mm[Hg]Anjali Flori [phone]-TqsdqWhite Hospital05-03-2024 08:58-0400Heart rate66 /minBelina StaffordFlori 531-9163Lrxfdr-YqgdeWhite Hospital05-03-2024 08:58-0400Systolic blood nhxxwavn714 mm[Hg]Anjali Staffordmetz 345-8898Uetnkt-BsdzaWhite Hospital04-18-2024 13:28-0400Body inflhd798.64 cmL[facility]04-18-2024 13:28-0400Body mass index (BMI) [Ratio]28 kg/y3IhaultbluLakehealth Beachwood Medical Center 09-02-2023 13:28-0400Body fkpuzb36.69 kgLakehealth Beachwood Medical Center 09-02-2023 13:28-0400Diastolic blood mm[Hg][facility]04-18-2024 13:28-0400Heart rate67 /minLakehealth Beachwood Medical Center 09-02-2023 13:-8280NdP4% (BldA) [Mass fraction]95 %[facility]04-18-2024 13:-0400Systolic blood xugwdear312 mm[Hg][facility]03-12-2024 10:230400Body rwheni126.64 cmL[facility]health [facility] Center03-12-2024 10:23-0400Body mass index (BMI) [Ratio]27.5 kg/m2 [facility]03-12-2024 10:23-0400Body ebqwfoauepu75.9 [degF][facility]03-12-2024 10:040Body mafxlv04.28 kg [facility]03-12-2024 10:0400Diastolic blood xxpzgtba85 mm[Hg][facility]03-12-2024 10:-0400Heart rate86 /min [facility]03-12-2024 10:0400Respiratory rate18 /min [facility]03-12-2024 10:237474ErM1% (BldA) [Mass fraction]97 %[facility]03-12-2024 10:0400Systolic blood upratlvv412 mm[Hg][facility]01-15-2024 13:30-0500 Body lfduxs989.64 cmPegjennyfer Brunson Other [employer] Other 01-15-2024 13:30-0500Body mass index (BMI) [Ratio]27.6 kg/g1LzdcoGisele Brunson Other [employer] Other 01-15-2024 13:30-0500Body ybsqwk17.57 kgPeflores Brunson Other [employer] Other 01-15-2024 13:30-0500Diastolic blood mm[Hg] Gisele Brunson Other [employer] Other 01-15-2024 13:30-0427JkR8% (BldA) [Mass fraction]94 % Gisele Brunson Other [employer] Other 01-15-2024 13:30-0500Systolic blood mm[Hg] Gisele Brunson Other [facility]octors [facility] [employer] Other 01-09-2024 12:21-0500Blood Pressure LocationBeth Flori 460-1706Vehvkm-IpxwzWhite Hospital01-09-2024 12:21-0500Diastolic blood wndlngfy72 mm[Hg]Anjali Flori 861-3772Pkdoiw-HgdxzWhite Hospital01-09-2024 12:21-0500Heart rate88 /minBeth Flori 440-8866Zcyacw-HucgpWhite Hospital01-09-2024 12:21-0500Respiratory rate16 /minBeth Flori 169-5915Mublqo-UasziWhite Hospital01-09-2024 12:21-0500Systolic blood bcuorots618 mm[Hg]Anjali Flori 609-6083Pjeeks-QdrqjWhite Hospital11-16-2023 13:15-0500Body rqtqsoyfcga30.11 [degF]Vaishali Pringle MD Work Phone: [facility]11-16-2023 13:15-0500Body eaozij29.75 kgKingstonms Pino CASON Work Phone: [facility]11-16-2023 13:15-0500Diastolic blood qymlhpij41 mm[Hg]Vaishali Pringle MD Work Phone: [facility]11-16-2023 13:15-0500Heart rate70 /min Vaishali Pringle MD Work Phone: [facility]11-16-2023 13:15-3595RgA3% (BldA) [Mass fraction]97 %Vaishali Pringle MD Work Phone: [facility]11-16-2023 13:15-0500Systolic blood xousushu631 mm[Hg]Vaishali Pringle MD Work Phone: [facility]10-25-2023 08:53-0400Blood Pressure LocationBelina Ruby 782-0988Pkamlt-Bckgy[address] [place], [place] 0873310-25-2023 08:53-0400Body xpnfdwahtlw33.16 [degF]Anjali Staffordmetz 235-4116Lnvglo-Eloxg[address] [place], [place] 0873310-25-2023 08:53-0400Diastolic blood tizrlawb91 mm[Hg]Anjalijane StaffordFlori [address] [place], [place] 5560210-25-2023 08:53-0400Heart rate63 /minBeth Flori 864-3314Wwbizs-Bgxkg[address] [place], [place] [address]873310-25-2023 08:53-0400Systolic blood stalpjlv561 mm[Hg]Anjali Staffordmetz 528-0911Oyfmdt-Usnpe[address] [place], [place] 0873310-12-2023 13:27-0400Blood Pressure LocationBeth Flori 442-1307Vfviek-Zjufj[address] [place], [place] 087[address]10-12-2023 13:27-0400Body aaquaovjywd88.06 [degF]Anjali Staffordmetz 005-0654Muwysa-Dsnwr[address] [place], [place] 0873310-12-2023 13:27-0400Diastolic blood eitqwsno18 mm[Hg]Anjalijane StaffordFlori 427-8365Kthayx-Yispz[address] [place], [place] 0873310-12-2023 13:27-0400Heart rate85 /minBeth Flori 208-1713Yjphbk-Fopbc[address] [place], [place] [address]87[address]10-12-2023 13:27-0400Respiratory rate16 /minBeth Flori 393-4878Sotita-LzdeiWhite Hospital10-12-2023 13:27-0400Systolic blood aqomldie111 mm[Hg]Anjali Ruby 856-3789Lymkkt-QxlceWhite Hospital09-15-2023 10:15-0400Body zeijva767.64 cmPegjennyfer Brunson Other [employer] Other 09-15-2023 10:15-0400Body mass index (BMI) [Ratio] 28.24 kg/t3Ntxlkflores Brunson Other [employer] Other 09-15-2023 10:15-0400Body toojzm18.38 kgPeflores Brunson Other [employer] Other 09-15-2023 10:15-0400Diastolic blood mm[Hg] Giselejennyfer Brunson Other [employer] Other 09-15-2023 10:15-6523TiW1% (BldA) [Mass fraction]95 % Gisele Brunson Other [employer] Other 09-15-2023 10:15-0400Systolic blood thzuyxjp955 mm[Hg] Gisele Brunson Other [employer] Other 08-29-2023 09:22-0400Blood Pressure LocationAnjali Ruby 271-1004Veqosl-GcryrWhite Hospital08-29-2023 09:22-0400Body najrqdkrdqm55.98 [degF]Anjali Ruby 013-4386Qezcbd-MwqlfWhite Hospital08-29-2023 09:22-0400Diastolic blood bwofcusu90 mm[Hg]Anjali Ruby 284-1549Qdsoqr-CclupWhite Hospital08-29-2023 09:22-0400Heart rate69 /minAnjali Ruby 380-7284Cmvwos-RozfuWhite Hospital08-29-2023 09:22-0400Systolic blood bwujzmbq330 mm[Hg]Anjali Ruby 682-9585Aazzfm-GjzjyWhite Hospital05-30-2023 09:45-0400Body huddeb843.64 cmPegjennyfer Brunson Other [employer] Other 05-30-2023 09:45-0400Body mass index (BMI) [Ratio] 27.92 kg/f3Lqvumflores Brunson Other [employer] Other 05-30-2023 09:45-0400Body .47 kgPeflores Brunson Other [employer] Other 05-30-2023 09:45-0400Diastolic blood swxusvcr41 mm[Hg] Giselejennyfer Brunson Other [employer] Other 05-30-2023 09:45-1424HbF2% (BldA) [Mass fraction]95 % Giselejennyfer Brunson Other [employer] Other 05-30-2023 09:45-0400Systolic blood yfehetjn595 mm[Hg] Gisele Brunson Other [employer] Other 05-09-2023 18:14-0400Body escsxmwkhqo59.86 [degF]Gordy Sánchez [place]05-09-2023 16:28-0400Body hkckbogpgth850.3 [degF]Gordy Sánchez [place]05-09-2023 16:28-0400 Diastolic blood bbmekjar97 mm[Hg]Gordy Sánchez [place]05-09-2023 16:28-0400Heart rate79 /minGordy Sánchez [place]05-09-2023 16:28-0400 Respiratory rate17 /minGordy Sánchez [place]05-09-2023 16:28-3497YpO8% (BldA) [Mass fraction]93 %Gordy Sánchez [place]05-09-2023 16:28-0400 Systolic blood ghofecpy118 mm[Hg]Gordy Sánchez [place]05-09-2023 14:10-0400Body geuclv406.64 cmPamellyssa Pennington Other [employer] Other 05-09-2023 14:10-0400Body mass index (BMI) [Ratio]29.7 kg/q4Chuviiestrada Pennington Other [employer] Other 05-09-2023 14:10-0400Body mdwpsrakvgw057 [degF]Griselda Aditi Other [employer] Other 05-09-2023 14:10-0400Body .46 kgPaestrada Pennington Other [facility] Other 05-09-2023 14:10-0400Respiratory rate18 /minGriselda Pennington Other [employer] Other 05-09-2023 14:10-6857YtG8% (BldA) [Mass fraction]93 % Griselda Aditi Other [employer] Other 03-15-2023 10:15-0400Body weomvl981.64 cmDawon Salazar Other [employer] Other 03-15-2023 10:15-0400Body mass index (BMI) [Ratio] 30.02 kg/s6Brymm Martin Other [employer] Other 03-15-2023 10:15-0400Body fcjpqe87.37 kgDawon [place] Other [employer] Other 03-15-2023 10:15-0400Diastolic blood hswvinlr36 mm[Hg] Erwin Salazar Other [employer] Other 03-15-2023 10:15-6557DsW8% (BldA) [Mass fraction]94 % Erwin Salazar Other [employer] Other 03-15-2023 10:15-0400Systolic blood brirdelk450 mm[Hg] Erwin Salazar Other [employer] Other 07-16-2022 10:25-0400Body alxpqz083.64 cmSjorge Garcia Other [employer] Other 07-16-2022 10:25-0400Body junkneicjuy69.9 [degF] Leti Garcia Other [employer] Other 07-16-2022 10:25-0400Respiratory rate18 /minSjorge Garcia Other [employer] Other [id number] 10:25-5700NrP0% (BldA) [Mass fraction]93 % Leti Garcia Other [employer] Other Encounters Encounter DateEncounter TypeCare ProviderFacilityStart: 03-08-2025 End: 59-26-7000yqmexicqjwMlrsgr E Ross MD Work Phone: [phone]-PsytdeexhSaint John'S Aurora [facility] HospitalStart: 03-08-2025 End: 82-65-8137Mchgmya encounter procedureCamtolu Russell MD-[facility] Work Phone: Start: 46-54-0231Xsqqyazkkj Recurringd Ramin Hargrove MD-[facility] Acute Work Phone: Start: 22-09-5933obobmbdyifClnuqq E Ross [facility]: 18-80-1453Fwczyeyzgk Recurring Mhd Ramin Faustin MD-[facility] Acute Work Phone: Start: 02-22-2025 End: 83-70-6180klzbbsksfxTvxuxy E Ross MD Work Phone: [facility] Work Phone: Start: 02-22-2025 End: 09-03-2929Kejuqgt encounter procedureMarilia Crouch APRN-[facility] Ambulatory Work Phone: Start: 92-73-0125nlunqrytolSIZPG UBOur Lady of Mercy Hospitaltart: 02-06-2025 End: 70-33-1356ewwgjdakhcFANX [facility] Hospitaltart: 01-18-2025 End: 63-26-1326Wuuzoh outpatient visit 15 minutesFredric H Vandana DO Work Phone: [facility] Surgical AssociatesComment on above:Esophageal dysphagia (Primary Dx)Start: 01-18-2025 End: 03-67-8088mibqpubhreFJXYADL H ITZKODINESHNot AvailableStart: 01-08-2025 End: 13-71-9833Xltfom outpatient visit 15 minutesFredric H Itzkodinesh DO Work Phone: [facility] Surgical AssociatesComment on above:Esophageal dysphagia (Primary Dx); Carcinoma of oropharynx (HCC)Start: 01-08-2025 End: 27-17-0754abbvjdxvhbEWAATZA H ITZKOWITZNot AvailableStart: 12-26-2024 Registered Omidrick Faustin MD-[facility] Acute Work Phone: Start: 12-26-2024 End: 91-76-7886iwemodprzkXovpha E Ross MD Work Phone: [facility] Work Phone: Start: 12-26-2024 End: 69-64-7998Frohgvl encounter procedureMarilia Crouch APRN-[facility] Work Phone: Start: 83-78-8701dwpdaezpqpRZRB [facility] Hospitaltart: 12-11-2024 End: 56-52-0327Fwjzwm outpatient visit 15 minutesMary Schneider MD Work Phone: [facility] CenterComment on above: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); G tube feedings (Multi); At risk for malnutritionStart: 12-11-2024 End: 14-47-3428vvaqcwktrxRHWOQJU N STEVENSKettering Health Behavioral Medical Centertart: 12-05-2024 End: 70-10-9525ahufvzudhdSSLP [facility] Hospitaltart: 11-27-2024 End: 21-63-9627oiiashvlmlLexrgn E. RossFacility:[facility] MeganevueStart: 11-23-2024 Registered Omidrick Faustin MD-[facility] Acute Work Phone: Start: 11-23-2024 End: 88-31-7908qiiewawgmbHdifyy E Ross MD Work Phone: [facility] Work Phone: Start: 11-23-2024 End: 23-97-9062Txoaaou encounter procedureTalib Faustin [facility] Work Phone: Start: 11-23-2024 End: 67-78-9011Fodsmjk encounter procedureKatflori Campbell [facility] Palliat CareStart: 11-23-2024 End: 77-06-0401vsyfnibmpnRulnop E Ross MD Work Phone: [facility] Work Phone: Start: 44-15-2817Eiv-patient / Non-visitKatflori Campbell [facility] Palliative Work Phone: Start: 11-21-2024 End: 95-79-4260phpdbymufbNmzolu E. RossFacility:[facility] BellevueStart: 2024 End: 03-91-3604pwektfgrlbRFHumza CooperFacility:[facility] BellevueStart: 10-12-2024 End: 84-27-8416zqxjgyosocTCHumza CooperFacility:[facility] BellevueStart: 10-11-2024 End: 91-01-7986Baavup follow up visit related to original pxFredric H Itzkowitz DO Work Phone: [facility] GENSComment on above:Esophageal dysphagia (Primary Dx); Carcinoma of oropharynx (CMS/HCC)Start: 10-11-2024 End: 51-20-2465tonberfapsNLDMACN H ITZKOWITZNot AvailableStart: 10-03-2024 End: 00-55-3367Nyeiiyuw Result EncounterFredric H Itzkowitz DO Work Phone: n[facility] External Department UnsolicitedStart: 10-03-2024 End: 26-77-4824Abrxfvup Result EncounterFredric H Itzkowitz DO Work Phone: n[facility] External Department UnsolicitedStart: 10-03-2024 End: 72-93-6979Kxwtuaika to same day surgery centerFredric Itjodee DO-[facility] CenterStart: 10-03-2024 End: 57-26-1391bwqtpddjucDxbngix ItjodeeFacility:[facility] Hospitaltart: 09-28-2024 End: 15-51-4050jjkactpyrdPC Demetrius CooperFacility:[facility] BellevueStart: 09-28-2024 End: 03-88-0607Yafdae flowsheetAngela Lowe PA Work Phone: aNA [place]Start: 09-28-2024 End: 98-33-5512Jqqvpu flowsheetAngela Lowe PA Work Phone: ana [place]Start: 09-28-2024 End: 54-05-3317Ptzwjm outpatient visit 15 minutesAngela Lowe PA Work Phone: aNA [place]Comment on above:Vertigo (Primary Dx); Lumbar radiculopathy; Chronic bilateral low back pain, unspecified whether sciatica present; Degenerative disc disease, cervical; Migraine without aura and without status migrainosus, not intractable (CMS/HCC); PolyneuropathyStart: 09-28-2024 End: 31-84-1075tykgejierdIIHSRL LOWENot AvailableStart: 09-27-2024 End: 02-29-6669Cmtvmb outpatient new 45 minutesFredric H Itzkowitz DO Work Phone: [facility] ST GENSComment on above:Esophageal dysphagia (Primary Dx)Start: 09-27-2024 End: 14-40-5827qlmeaemfenOBDNOAP H ITZKODINESHNot AvailableStart: 09-26-2024 End: 48-62-0862wwxxleydcbStxrst E Ross MD Work Phone: [facility] Work Phone: Start: 09-26-2024 End: 24-56-3808Hjyghbe encounter procedureSleno Cooper MD Work Phone: Count Includes [facility] Physician [facility] Work Phone: Start: 35-70-4564Vfkhivkrun Philly Cooper MD Work Phone: [facility] Work Phone: Start: 09-20-2024 End: 22-49-7791Iakpcfldz department patient visitSleno Cooper MD Work Phone: [facility] Work Phone: Start: 09-14-2024 End: 06-41-8204pvhlvvvxjgCW Demetrius CooperFacility:[facility] BellevueStart: 09-11-2024 End: 09-03-7269Uzvdos outpatient visit 15 minutesMaalexx Schneider MD Work Phone: [facility] CenterComment on above: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); Dysphagia, unspecified typeStart: 09-11-2024 End: 66-97-5652aqkkaxfqapRZWVLBO N [facility] Healthtart: 09-11-2024 End: 69-08-2766Jgnfezh encounter procedureSleno Cooper MD Work Phone: [facility] Work Phone: Start: 60-39-9878Zrjwqkjkew Philly Cooper MD Work Phone: [facility] Work Phone: Start: 09-07-2024 End: 32-49-1458Tlszplo encounter procedureSleno Cooper MD Work Phone: [facility] Work Phone: Start: 09-04-2024 End: 06-27-2246plaectjncdJPEADetwiler Memorial Hospitaltart: 08-30-2024 End: 54-57-6227Vob Drop offSleno Cooper [place] Start: 08-30-2024 End: 50-87-1462vddbdjohpkFtmbft E. RossFacility:FTMCStart: 08-24-2024 End: 97-32-1072dispaswwtnQbwwrr E. RossFacility:[facility] BellevueStart: 08-23-2024 End: 69-37-2751Iiwtqwr encounter procedureSleno Cooper MD Work Phone: [facility] Work Phone: Start: 08-22-2024 End: 28-37-9940eucabngskaKczlrx E. RossFacility:CD:[phone]: 08-21-2024 Non-patient / Non-visitSleno Cooper MD Work Phone: [facility] Work Phone: Start: 86-67-1902Dok-patient / Non-visitSleno Cooper MD Work Phone: [facility] Dis Work Phone: Start: 93-38-9797vvylxfchynBowcmokos M McGraw [facility]: 08-20-2024 End: 46-80-3632Iullrnrjit and management of inpatientSleno Cooper MD Work Phone: [facility] [place] [facility] Work Phone: Start: 31-69-1483Gbsjfeihqn RecurringDemetrius Cooper MD Work Phone: [facility] Work Phone: Start: 18-55-5373Nxd-patient / Non-visitSleno Cooper MD Work Phone: [facility] Work Phone: Start: 53-32-0061qputdifojdUidcgirh R Poynter [facility]: 46-51-6873Jdtaviphvo Recurring Demetrius Cooper MD Work Phone: [facility]-Spe[facility] Therapy Cancer CenterStart: 37-65-0044Ibg-patient / Non-visitSleno Cooper MD Work Phone: Count Includes [facility] Physician [facility] Palliative Work Phone: Start: 73-40-5325Gtpvjnnlbp RecurringDemetrius Cooper MD Work Phone: [facility] [place] [facility] Work Phone: Start: 08-16-2024 End: 82-47-8683Ctxtzaf encounter procedureSleno Cooper MD Work Phone: [facility] CareStart: 08-16-2024 End: 19-68-5064tfvxorqidfWvxhuu E Ross MD Work Phone: [phone] Work Phone: Start: 18-45-1804Scp-patient / Non-visitSleno Cooper MD Work Phone: Count Includes [facility] Physician [facility]-Heart Rhythm ClinicStart: 08-18-0420Zae-patient / Non-visitSleno Cooper MD Work Phone: [facility] Work Phone: Start: 03-82-7617Cjzidvlduq Philly Cooper MD Work Phone: [facility]-Spe[facility] Therapy Cancer CenterStart: 08-09-2024 End: 90-09-4509Asxdlfq encounter procedureSleno Cooper MD Work Phone: [facility] Work Phone: Start: 04-70-6623Wps-patient / Non-visitSleno Cooper MD Work Phone: Count Includes [facility] Physician [facility] Palliative Work Phone: Start: 08-09-2024 End: 72-21-5669Oiotapr encounter procedureSleno Cooper MD Work Phone: [facility]Start: 08-09-2024 End: 70-87-4243jlyqxwlaxeUxvmwa E Ross MD Work Phone: [facility] Work Phone: Start: 64-39-3228Zey-patient / Non-visitSleno Cooper MD Work Phone: Count Includes [facility] Physician [facility] Ambulatory Work Phone: Start: 28-55-8405Ezlwffzmph Philly Cooper MD Work Phone: [phone]Spe[facility] Therapy Cancer CenterStart: 89-70-1186Daj-patient / Non-visitSleno Cooper MD Work Phone: [facility] Work Phone: Start: 90-30-6787Bwr-patient / Non-visitSleno Cooper MD Work Phone: Count Includes [facility] Physician [facility]Heart Rhythm ClinicStart: 08-02-2024 End: 49-93-3356Jwwxfdx encounter procedureSleno Cooper MD Work Phone: [facility] HospitalStart: 08-02-2024 End: 70-38-3835nstnzackgsYoqwwy E Ross MD Work Phone: [facility] Work Phone: Start: 94-17-9729Qum-patient / Non-visitSleno Cooper MD Work Phone: [facility] Work Phone: Start: 87-38-1220Lkfgrqwcsx Philly Cooper MD Work Phone: [facility] Cancer CenterStart: 15-65-9655Vfd-patient / Non-visitSleno Cooper MD Work Phone: Count Includes [facility] Physician [facility] Ambulatory Work Phone: Start: 07-26-2024 End: 31-70-4874hxxiccwnsyKIMGRI VARGAS VNot AvailableStart: 14-17-5853Djksdrwthz RecurringDemetrius Cooper MD Work Phone: [facility] [place] Acute Work Phone: Start: 38-41-3269Pzj-patient / Non-visitSleno Cooper MD Work Phone: Count Includes [facility] Physician [facility] Work Phone: Start: 07-26-2024 End: 23-14-4850Lytnwedp ReferredDemetrius Cooper MD Work Phone: [facility] CareStart: 07-26-2024 End: 15-84-6655mthdkekgvlCmoqvg E Ross MD Work Phone: [facility] Work Phone: Start: 07-26-2024 End: 78-73-0873Gipffuk encounter procedureSleno Cooper MD Work Phone: [facility] Work Phone: Start: 14-11-2985Fsb-patient / Non-visitSleno Cooper MD Work Phone: Count Includes [facility] Physician [facility]-Heart Rhythm ClinicStart: 23-77-7501Hev-patient / Non-visitSleno Cooper MD Work Phone: Count Includes [facility] Work Phone: Start: 76-02-3927fzzwqsayewYxcmeka Stevens Facility:[facility]: 32-34-3594Iczdjbuvgn Recurring Demetrius Cooper MD Work Phone: [facility]-Speech Therapy Cancer CenterStart: 67-13-8935Fww-patient / Non-visitSleno Cooper MD Work Phone: [facility] Work Phone: Start: 07-20-2024 End: 39-51-7234Llkczrj encounter procedureSleno Cooper MD Work Phone: [facility] [place] [facility] Work Phone: Start: 07-19-2024 End: 41-91-4981venuzwsytbMRMYDSGUniversity Hospitals Cleveland Medical Centertart: 25-31-5327Akd-patient / Non-visitSleno Cooper MD Work Phone: [facility] FoundationHeart Rhythm ClinicStart: 07-19-2024 End: 64-34-6383Yrhdvwin Magali Cooper MD Work Phone: [facility] CareStart: 07-19-2024 End: 67-64-4825Bjwhesc encounter procedureSleno Cooper MD Work Phone: [facility] HospitalStart: 07-19-2024 End: 34-83-5473xkpxmtnhseYtxplfpsd M [facility] Hospitalcility:[facility]tart: 07-17-2024 End: 58-68-9284Bhvglgwl Result EncounterMatteo Melo MD Work Phone: noms External Department UnsolicitedStart: 07-17-2024 End: 50-88-2610Kgbrtbot Result EncounterMatteo Bell MD Work Phone: noms External Department UnsolicitedStart: 07-17-2024 Registered Philly Cooper MD Work Phone: [facility] [place] [facility] Work Phone: Start: 07-17-2024 End: 14-83-6269Lmybmdgcr to same day surgery centerSleno Cooper MD Work Phone: [facility] CampusStart: 07-17-2024 End: 50-70-4797twztpngmbsQyyfxn E Ross MD Work Phone: [facility] Work Phone: Start: 64-92-7110Dca-patient / Non-visitSleno Cooper MD Work Phone: [facility] Work Phone: Start: 28-47-0353Saj-patient / Non-visitSleno Cooper MD Work Phone: [facility] Work Phone: Start: 54-78-2950Zdt-patient / Non-visitSleno Cooper MD Work Phone: Count Includes [facility] Physician [facility] HospitalHeart Rhythm ClinicStart: 18-02-6400Xpaobbqkkw Philly Cooper MD Work Phone: [facility] [place] [facility] Work Phone: Start: 20-05-2637Ekl-patient / Non-visitSleno Cooper MD Work Phone: Count Includes [facility] Physician [facility] Work Phone: Start: 07-12-2024 End: 47-70-5537Eavtrud encounter procedureSleno Cooper MD Work Phone: [facility] Work Phone: Start: 07-12-2024 End: 26-72-7622pxiswxzeehYdzagw E Ross MD Work Phone: [facility] Work Phone: Start: 31-06-8446Vlw-patient / Non-visitSleno Cooper MD Work Phone: [facility] Work Phone: Start: 07-10-2024 End: 92-59-7926cpjnezdgurGRGJGuernsey Memorial Hospitaltart: 31-93-3303Krj-patient / Non-visitSleno Cooper MD Work Phone: [facility] Work Phone: Start: 01-53-9671Ktd-patient / Non-visitSleno Cooper MD Work Phone: Count Includes [facility] Physician [facility]-Heart Rhythm ClinicStart: 22-98-2126Ngo-patient / Non-visitSleno Cooper MD Work Phone: Count Includes [facility] Physician GroupAt[facility] Work Phone: Start: 07-06-2024 End: 59-11-0850Rlfgqaru Magali Cooper MD Work Phone: [facility]iat CareStart: 07-06-2024 End: 92-96-9999Yhbzkgt encounter procedureSleno Cooper MD Work Phone: [phone] PalliativeStart: 07-06-2024 End: 54-63-3013dwzipsjfitXtnzyi E Ross MD Work Phone: [facility] Work Phone: Start: 26-63-6238Evt-patient / Non-visitSleno Cooper MD Work Phone: [facility] [place] [facility] Work Phone: Start: 07-04-2024 End: 26-91-1123etgyjvxueiLxsnuu E. RossFacility:FT BellevueStart: 07-03-2024 End: 83-54-2665Mlk Drop offMhd Ramin LamasKamarga [place] Start: 07-03-2024 End: 05-62-1561Kjzrmbrp Magali Cooper MD Work Phone: [facility] HospitalStart: 07-03-2024 End: 57-55-8164Fcx Drop offSleno Cooper [place] Start: 07-03-2024 End: 48-88-0507hhgetpjqdxVhfrvz E. RossFacility:FTMCStart: 06-23-2024 End: 66-79-8143Ohtfxbo encounter procedureIsabel Romano AUD Work Phone: noms AUDComment on above:Sensorineural hearing loss, bilateral (Primary Dx); Tinnitus, bilateralStart: 06-23-2024 End: 00-67-4366rxwkkxbpphNCTQUXA S WRIGHTNot AvailableStart: 06-23-2024 End: 88-09-9250Plluqi flowsheetIsabel Romano AUD Work Phone: noms AUDStart: 06-23-2024 End: 51-76-5599Utkiwc flowsJudith Romano AUD Work Phone: noms AUDStart: 06-22-2024 End: 32-30-6523Jrahzzv encounter procedureSleno Cooper MD Work Phone: [facility] Fpe-Cwt-Xlotclgh Testing Work Phone: Start: 06-22-2024 End: 42-86-5916crxfchimbtRxjycu E Ross MD Work Phone: [facility] C[facility] Work Phone: Start: 39-77-3382Wwygfqnud for preprocedural laboratory examinationMatteo Woody Count Includes [facility] Physician GroupStart: 06-22-2024 End: 54-74-4085Lvqwxgww Result EncounterMatteo Melo MD Work Phone: noms External Department UnsolicitedStart: 06-22-2024 End: 86-47-8999Ajtombli Result EncounterMatteo Bell MD Work Phone: noms External Department UnsolicitedStart: 06-20-2024 End: 39-61-0448Jnduhd outpatient new 45 minutesMatteo Melo MD Work Phone: noms ST GENSComment on above:Poor intravenous access (Primary Dx); Carcinoma of oropharynx (CMS/HCC)Start: 06-20-2024 End: 45-25-7052ypjhwlfgykYYOLSK VARGAS VNot AvailableStart: 00-64-7143Dri- patient / Non-visitSleno Cooper MD Work Phone: [facility] Work Phone: Start: 35-84-7858Qiwnhbrdvc Philly Cooper MD Work Phone: [facility] Acute Work Phone: Start: 06-14-2024 End: 34-34-2565dvhmfywbwjIysnva E Ross MD Work Phone: [facility] Work Phone: Start: 06-14-2024 End: 68-97-8768Bdvekie encounter procedureSleno Cooper MD Work Phone: [facility] Work Phone: Start: 78-12-3358Viiojmuufx Philly Cooper MD Work Phone: [facility] Acute Work Phone: Start: 06-14-2024 End: 16-07-1480nbzybdkesaIydbqe E Ross MD Work Phone: [facility] Work Phone: Start: 06-14-2024 End: 29-25-6988Jgcqqwn encounter procedureSleno Cooper MD Work Phone: [facility] Work Phone: Start: 06-06-2024 End: 68-32-2703tzglkapsvsCVYMHenry County Hospitaltart: 06-05-2024 End: 47-07-4599Trrynulzyc hospital visit by physicianc Ultrasound [address] [place], [place] [address]Comment on above:Enlarged submental lymph nodeStart: 06-05-2024 End: 90-10-4627mtiabyucrzOYFDKBM N [facility] Healthtart: 05-30-2024 End: 00-02-5427Oclpch follow up visit related to original Mckenzie Schneider MD Work Phone: [facility] CenterComment on above: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); Oral lesion; Malignant neoplasm of floor of mouthStart: 04-07-2024 End: 18-35-6305tcclijvthtDMYJXWN N [facility]htart: 03-29-2024 End: 98-90-6332Gkiikc flowsHilario Ham MD Work Phone: noms CI ENTStart: 03-29-2024 End: 50-35-3819Rmeaay Kilo Ham MD Work Phone: n[facility] CI ENTStart: 03-29-2024 End: 15-54-7217Diujur outpatient visit 15 minutesLuc Ham MD Work Phone: noms CI ENTComment on above: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) (Primary Dx); Ulcer of gingivaStart: 03-29-2024 End: 91-45-4192voyympwxyoFZAZFQ H TIMMISNot AvailableStart: 03-27-2024 End: 78-86-9917jlumnyfnxwNCZWPJ HOUGHTON TIMMISFacility:[facility] Centertart: 03-27-2024 End: 42-12-8876Zvorbzrmwq hospital visit by physicianArrival Time Radiology Work Phone: Radiology Pet CTStart: 03-23-2024 End: 29-59-6999yfhhngarrnGimnzxms Talal SarminiFacility:[place] DHStart: 03-23-2024 End: 04-19-2704Ahpbalm encounter procedureMudannierick Marin Henderson [phone]-HtadtCleveland Clinic [facility] Digestive Health Start: 03-08-2024 End: 82-75-9428Zgonza flowsHilario Ham MD Work Phone: noms CI ENTStart: 03-08-2024 End: 67-06-2185Kucbpj flowsheetLuc Ham MD Work Phone: n[facility] CI ENTStart: 03-08-2024 End: 87-40-2590Dehaax outpatient visit 40 minutesLuc Ham MD Work Phone: noms CI ENTComment on above:Oral ulcer (Primary Dx); 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)Start: 03-08-2024 End: 73-54-2375svcktkqqnyVGLKGD H TIMMISNot AvailableStart: 03-06-2024 End: 14-66-3335Qjrppqoqz encounterLuc Ham MD Work Phone: noms ENT NORWALKStart: 02-29-2024 End: 58-31-7307Yzxcrvigi Result EncounterLuc Ham MD Work Phone: noms External Department UnsolicitedStart: 02-29-2024 End: 61-51-7167Fswcjsgwq Result EncounterLuc Ham MD Work Phone: noms External Department UnsolicitedStart: 02-29-2024 End: 04-99-1116zgkmtxyydfKC Samuel E Ross Work Phone: [facility] Work Phone: Start: 02-29-2024 End: 45-76-8778Oktonmqu ReferredMD Demetrius Cooper Work Phone: [facility] C[facility]-LAB Path Spec Nicolette HospStart: 02-16-2024 End: 63-06-8294Lfvind outpatient visit 25 minutesHisara Ham MD Work Phone: [facility] CI ENTComment on above:LAD (lymphadenopathy) of right cervical region (Primary Dx)Start: 02-16-2024 End: 66-48-5751uwbjafcvskMHXRPL Jane Jade AvailableStart: 02-16-2024 End: 03-75-4155Wriwer flowsheetAngela Lowe PA Work Phone: [facility] [address] R[address]TEStart: 02-16-2024 End: 76-30-5619Asptkw flowsheetAngela Lowe PA Work Phone: [facility] [address]TEStart: 02-16-2024 End: 40-32-2006Dvktrv outpatient visit 15 minutesAngela Lowe PA Work Phone: [facility] [address] STATE ROUTEComment on above:Migraine without aura and without status migrainosus, not intractable (CMS/HCC) (Primary Dx); Vertigo; Lumbar radiculopathy; Neck pain; Degenerative disc disease, cervical; PolyneuropathyStart: 02-16-2024 End: 55-30-8622zsfdcazndcVYEHDS LOWENot AvailableStart: 02-14-2024 End: 83-49-5574lhqxyodylyBVODKS H FATOUMATANot AvailableStart: 02-02-2024 End: 51-07-4171Boampfbhh encounterToms Pino CASON Work Phone: General SurgeryComment on above:MRI Appointment; Social Media Senior Associate - OtherStart: 02-01-2024 End: 80-40-9305Ajcxyx Kilo Ham MD Work Phone: [facility] CI ENTStart: 02-01-2024 End: 91-36-0341Drfutb Kilo Ham MD Work Phone: [facility] CI ENTStart: 02-01-2024 End: 65-45-0451Omnszg outpatient new 30 minutesHisara Ham MD Work Phone: [facility] CI ENTComment on above:Parotid mass (Primary Dx) Start: 02-01-2024 End: 35-20-6431OonqkbZkbp Augustin MD Work Phone: General SurgeryStart: 01-10-2024 End: 74-49-6835yqkwgfvqivFeemwo E. RossFacility:FT FM BellevueStart: 11-09-2023 End: 06-19-2692Ranahbd encounter procedureInez Funes Lilymini [place] Start: 10-21-2023 End: 16-03-5754Pgzpgnl encounter procedureDuaneksrick Funes Lilyinova loudoun hospitalclive [phone]-KfiobCleveland Clinic Hillcrest Hospital Digestive Health Start: 09-17-2023 End: 83-56-1292Wesowpg encounter procedureAnjali Ruby [phone]-JlmwbCleveland Clinic Hill[facility] Start: 09-02-2023 End: 18-78-2669bjowwsateuJgrejsnprDunlap Memorial Hospital Work Phone: Start: 09-02-2023 End: 74-75-6929Shjhbdx encounter procedureCount Includes [facility] Physician GroupM[facility] Sleep [facility] Work Phone: Start: 07-27-2023 End: 20-59-0201Qfbqpcv encounter procedureCount Includes [facility] Physician Group-[facility] Work Phone: Start: 05-35-8345Gubpdw outpatient visit 25 minutes [facility] OutPtStart: 05-31-2023 End: 45-52-9870shrlffsfzpBT Samuel E Ross Work Phone: [facility] Work Phone: Start: 05-31-2023 End: 17-83-7405Ugxksyy encounter procedureMD Demetrius Cooper Work Phone: [facility]-Sleep Lab Work Phone: Start: 05-25-2023 End: 03-39-9463Pknudxw encounter procedureBelina Ruby [phone]-UawnbCleveland Clinic Hillcrest Hospital Digestive [facility] Start: 22-39-5052Uxghkgsmu encounterToms Pino CASON Work Phone: General SurgeryComment on above:Received Outside Medical RecordsStart: 04-01-2023 End: 72-30-7175gdxpvtrfgsGFWK AUGUSTINFacility:[facility] Centertart: 04-01-2023 End: 22-25-4373Beodbwi encounter procedureToms Pino CASON Work Phone: General SurgeryComment on above:IPMN (intraductal papillary mucinous neoplasm) (Primary Dx)Start: 03-10-2023 End: 76-05-2642Tbqojgk encounter procedureBelina Omalley Flori [place] Start: 03-10-2023 End: 84-04-5564Skledhj encounter procedureBelina Omalley Flori [phone]-OmwuyCleveland Clinic Hillcrest Hospital Digestive Health Start: 02-25-2023 End: 15-81-8455Hkufwkx encounter procedureBelina Omalley Flori [phone]-VwngqCleveland Clinic Hillcre[facility] Hospital Dig[facility] Start: 02-16-2023 End: 33-03-5682lbhzsdbkxsDA Samuel E Ross Work Phone: [facility] Work Phone: Start: 02-16-2023 End: 27-57-1585Jbyayzi encounter procedureMD Demetrius Cooper Work Phone: [facility]-MRI [place] Work Phone: Start: 53-83-4536Smxkmz outpatient visit 25 minutes [facility] SouthStart: 01-29-2023 End: 27-96-1241znhxhenxiyNV Samuel E Ross Work Phone: [facility] Work Phone: Start: 01-29-2023 End: 76-72-9524Oddgcxh encounter procedureMD Demetrius Cooper Work Phone: [facility]-Sleep Lab Work Phone: Start: 85-89-0893bubwrpwzygOgynowrs:9090Start: 01-27-2023 End: 78-58-9720lmfsrottudLW Samuel E Ross Work Phone: [facility] Work Phone: Start: 01-27-2023 End: 13-87-7430Hdwklzn encounter procedureMD Demetrius Cooper Work Phone: [facility] Ctr-Pacemaker CheckStart: 01-12-2023 End: 48-22-8013Xxczpqj encounter procedureBeth Lyssa [facility] [phone]-HpubhCleveland Clinic Hillcre[facility] Hospital [facility] Start: 12-17-2022 End: 19-21-3052Jinhdvz encounter procedureBelina Omalley [facility] [place] Start: 12-09-2022 End: 70-97-4167uepfrfiubaUC Samuel E Ross Work Phone: [facility] Work Phone: Start: 12-09-2022 End: 30-38-6444Wbqioes encounter procedureMD Demetrius Cooper Work Phone: [facility]-Sleep Lab Work Phone: Start: 11-23-2022 End: 27-35-0620Zjo Drop offSleno Cooper [place] Start: 14-90-6246Rmbgzy outpatient visit 15 minutes [facility] Ctr SouthStart: 10-13-2022 End: 21-89-2778cxiwjvldhrAE Marc Naderer Work Phone: [facility] Work Phone: Start: 10-13-2022 End: 07-92-3991Aatniiy encounter procedureMD Mg London Work Phone: [facility]-Sleep Lab Work Phone: Start: 09-29-2022 End: 99-56-7387iflbukipwbRA EDY CARNEYFacility:K9Prspy: 09-24-2022 End: 56-02-9744ghlvcpyadtKN MG JOHNSRFacility:P9Zokuq: 09-22-2022 End: 14-38-2167Xhyqymkfe department patient visitJenniferleslie Sánchez [place] Start: 55-49-4890Zosxbm outpatient visit 15 minutes [facility] ClydeStart: 09-22-2022 End: 94-94-6507medvvhbvvsSOLAUPECBXCW LAKSHMIPATHY .[facility] Cazoomi Other Start: 08-25-2022 End: 54-58-7464ycnzilakrhXBKVEOKQAFPC LAKSHMIPATHY .Facility:O0Tmwly: 08-12-2022 ambulatoryFacility:9090Start: 08-12-2022 End: 11-16-8580fqjrbzacszZB Mg [place] Work Phone: [facility] Work Phone: Start: 08-12-2022 End: 05-81-0627Qjotigg encounter procedureMD Mg [place] Work Phone: [facility]-MRI [place] Work Phone: Start: 08-11-2022 End: 03-37-0579oxpkzhmferVUARGSDEFZPL LAKSHMIPATHY .Facility:Z7Cxjqx: 07-29-2022 Office outpatient new [address] [facility] Start: 07-29-2022 End: 22-26-3376vbgpgraormNX Marc Naderer Work Phone: [facility] Work Phone: Start: 07-29-2022 End: 48-76-5760Darghwn encounter procedureMD Mg [place] Work Phone: [facility]-Sleep Lab Work Phone: Start: 07-23-2022 End: 79-56-7999ikckhwohgfZFGX SOLIS .Facility:T3Ylzgq: 07-22-2022 End: 55-57-3097oqnjcybqfuZUSWT D HIGHLANDERFacility:F9Szhsq: 07-21-2022 ambulatoryFacility:9090Start: 07-21-2022 End: 64-26-2559fxdvgwtpeuTR Marc Naderer Work Phone: [facility] Work Phone: Start: 07-21-2022 End: 90-55-0015Pfmeefh encounter procedureMD Mg [place] Work Phone: [facility] C[facility]-Pacemaker CheckStart: 06-18-2022 End: 21-12-3224yxcybqrqhxJRAHGGMD CULLENFacility:M7Vfwpb: 06-16-2022 End: 22-49-6254ijvlolksxmSQAZPLZD CULLENFacility:P8Awcgc: 06-11-2022 End: 11-85-7267kdkujzuwajWYWJM D HIGHLANDERFacility:B0Hcghz: 05-26-2022 End: 28-29-5777Zbaynsi encounter procedureDequan GALICIA [place] Start: 04-16-2022 End: 12-76-2659sufsojtqufPF ERWIN Bell WESTFacility:J3Qtmjv: 75-18-4367wbesntyjleMQ AMANDA CLNACY .Facility:R1Yieke: 03-12-2022 End: 92-78-6817cpgyqkmdpwVONKH D [facility] CHARLES HOSPITALANDERFacility:Q1Rubtx: 03-10-2022 End: 77-67-7595sgpgwujkgqQQEIJOFE PERRYFacility:Z9Bnkeo: 03-06-2022 End: 44-37-4200nkoqswwwnzGN DOCTOR MISCFacility:A0Dzasf: 12-25-2021 End: 68-19-9434fdttipxaiqORTM SOLIS .Facility:E8Jtfnk: 12-01-2021 End: 86-61-7605rviaxyrlweWXZMO D [facility]OSPITALFacility:N6Prqjv: 11-29-2021 End: 03-60-4560aesxooveelGfoqxipxf Breault Other Dewy Rose Mapkin Other Start: 88-74-1563Hfnros outpatient visit 15 minutes [facility] ClydeStart: 11-13-2021 End: 52-53-5814nnohyozhjmMFUX LACOURFacility:F0Glsix: 09-04-2020 End: 56-88-5970Eykkebr encounter procedureParam Cosme Work Phone: -mri Main CampusStart: 08-15-2020 End: 83-69-0319Zcgoeyf encounter procedureParam Cosme-Pacemaker CheckStart: 08-30-2019 End: 05-92-0640Nvgwhue encounter procedureEHAB A ELTAHAWYFacility:[facility] Procedures DateProcedureProcedure DetailPerforming ClinicianStart: 06-01-3564Kqthotgj emission tomography with computed tomographyDemetrius Cooper MD Work Phone: Start: 45-27-6306Kkkww gastrointestinal endoscopy for directed placement of percutaneous gastrostomy tubeSleno Cooper MD Work Phone: Start: 78-27-2676BUQTWTB POCT GLUCOMETERSFrcasey Adkins DO Work Phone: Start: 11-22-4882Pxcmajne tomography of abdomen and pelvis with contrastSleno Cooper MD Work Phone: Start: 92-05-4535Xfrlim-up visitFollow-upMADELPETRONA SCHNEIDERStart: 03-11-3280OD of chest without contrastSleno Cooper MD Work Phone: Start: 72-55-1714Chnnk chest X-raySleno Cooper MD Work Phone: Start: 34-46-4655Nkygnvko identified in Blood by CultureSleno Cooper MD Work Phone: Start: 44-27-4485Atdbuzlwuim Panel (PCR)Demetrius Cooper MD Work Phone: Start: 39-99-4735Yqewd chest X-raySleno Cooper MD Work Phone: Start: 89-40-5168Lmllokz venous cannula insertion Demetrius Cooper MD Work Phone: Start: 42-23-8522TH Infusaport Insertion/Removal (Not Applicable)Demetrius Cooper MD Work Phone: Start: 12-19-7458RQVTEBG POCT GLUCOMETERSMatteo Melo MD Work Phone: Start: 50-79-2306DIWFSTQZ FUNCTION TESTSIsabel Romano LINWOOD Work Phone: start: 34-23-9267Nsawm metabolic panel calcium total Matteo Melo MD Work Phone: Start: 86-49-4651Wvnttdwp blood count with white cell differential, automatedMatteo Melo MD Work Phone: Start: 13-70-5736Vj guidance needle placement img s&i Mary Schneider MD Work Phone: Start: 72-59-9522Utmmt Interpretation of outside study Mary Schneider MD Work Phone: Start: 91-40-1267Fdbjggj quantitative blood xcpt reagent stripMaalexx Schneider MD Work Phone: Start: 71-81-8343OXNRD OXIMETRY, CONTINUOUSMonniabdifatah Santana MD Work Phone: Start: 44-76-1208Bdkxsii quantitative blood xcpt reagent stripMaalexx Schneider MD Work Phone: Start: 71-21-2031VFJTA/VERIFY ABORHCjuliane Munoz MD Work Phone: Start: 00-61-0339Snhoe typing serologic rh (d)Gabo Munoz MD Work Phone: Start: 40-28-2974Ruhw bld gluc mntr dev cleared fda spec home useCcf ProviderStart: 24-38-6990OT BIOPSY LYMPH NODEHilary Jane Ham MD Work Phone: Start: 59-10-9362Stnfiyqzyqb procedureBelina Ruby Comment on above:done for painStart: 06-14-2023 ColonoscopyBelina Ruby Start: 95-71-3473AdoocjmpvrililejyevwwwqjgoQwgw Steinmetz Start: 98-17-5135YH abdomen wo conMD Demetrius Cooper Work Phone: Start: 54-01-1133LYX of cervical spine without contrastMD Mg [place] Work Phone: Start: 31-63-7410UB pre/post mri xrayMD Mg [place] Work Phone: Start: 05-50-6907ANR of right ankleMD Mg [place] Work Phone: Start: 24-44-7537DQW screeningMEADOWS PSYCHIATRIC CENTERComment on above:Performed By: #### CBC #### [facility] [address] [place] [address] Dr. Ramsey SanchezStart: 22-24-6873JtgrqhzsirwkohksftbiykatxuJtleqdy WATERS Comment on above:2 diminunative ulcers, gastritis, gastric polyp, biopsyAngioplasty of blood vesselPaohio county hospitalk GALICIA Cardiac pacemaker procedurePatrick GALICIA Cataract (disorder)Gordy Sánchez Comment on above:bilateralCholecystectomyPaohio county hospitalk GALICIA ColonoscopyRockcastle Regional Hospitalk GALICIA Hernia repairPaohio county hospitalk GALICIA ProstatectomyPaohio county hospitalnatali GALICIA TonsillectomyRockcastle Regional Hospitalnatali GALICIA VasectomyRockcastle Regional Hospitalnatali GALICIA Plan of Treatment DateCare ActivityDetailAuthorStart: 06-08-2025 End: 61-28-8646Prvxfga encounter jtklzojou19/23/2026 1:30 PM EST Office Visit [facility] [address] [place] [address] [place] [address] [place] [address] [facility]: 04-11-2025 Creatinine measurementCreatinine LevelUnLake County Memorial Hospital - WestStart: 49-44-3721Vziioiwox measurementPotassium LevelUnLake County Memorial Hospital - West Start: 04-03-2025 End: 91-70-2688Hfnobhn encounter xtirfalkw44/18/2025 11:00 AM EST Office Visit [facility] [address] [place] [address] Missy Villarreal NP [address] [place], [place] LISANDRO MENDOZAtart: 39-22-1784Zpqwlghfr vaccinationInfluenza Vaccine (#1) [facility]: 75-84-7986Hqlimoc referralJoint Township District Memorial Hospital Work Phone: Start: 12-11-2024 End: 33-67-4080Swgglpm encounter gfzrpykrm63/28/2025 10:00 AM EDT Office Visit [facility] [address]nd [place] [address] [place] [address] [place] [address] [facility]: 10-11-2024 End: 39-46-6487Gtfslmx encounter obqmvxwgg57/28/2025 2:15 PM EDT Office Visit [facility] [address] [place] [address] Veena Adkins DO [address] [place] [address] GENSStart: 69-10-4341EloacdwrcMercy Health – The Jewish Hospitaltart: 09-28-2024 End: 35-40-8069Tjptkez encounter procedureANA SOUTH BENDComment on above:Arrived Start: 08-29-2024 End: 70-44-9272Imgqcne encounter procedureNOFIRELANDS REGIONAL MEDICAL C[facility]OU[facility]AMP[facility] ROUTEStart: 61-12-0752RzunubfmjMercy Health – The Jewish Hospitaltart: 60-31-3384Qexuppsjxbplpl of prophylactic treatmentCincinnati Children'[facility] Hospital [facility] Center CenterStart: 08-21-2024 [facility] CenterStart: 52-77-6616NiymsaivdCincinnati Children'S Hospital Medical Center CenterStart: 18-60-5313Ofrklqfu to infectious diseases physicianCincinnati Children'S Hospital Medical Center CenterStart: 28-89-7455BxjacnoaiCincinnati Children'S Hospital Medical Center CenterStart: 39-98-0150FG Chest WO contrastMercy Health – The Jewish Hospitaltart: 08-20-2024 CT of chest without contrastCT chest wo [facility] Start: 73-41-6408Atfkruap admissionCincinnati Children'S Hospital Medical Center CenterStart: 58-98-8958AgguvwlxgCincinnati Children'S Hospital Medical Center CenterStart: 13-14-3204Suiqlmwj identified in Blood by CultureBlood CultureMercy Health – The Jewish Hospitaltart: 23-02-1171LhrmpgpajMercy Health – The Jewish Hospitaltart: 08-09-2024 End: 45-98-0421HohdacexyMercy Health – The Jewish Hospitaltart: 08-03-2024 End: 00-59-2989QjcsnizrgMercy Health – The Jewish Hospitaltart: 22-87-4319PfpwhryuoMercy Health – The Jewish Hospitaltart: 15-63-4273ZvtntizxuMercy Health – The Jewish Hospitaltart: 07-26-2024 End: 38-60-8763Cstvbjq encounter /12/2025 10:15 AM EDT Office Visit [facility] [address] [place] [address] Matteo Melo MD [address] [place] [address] [facility]ITALt[facility]: 58-50-7720XhsiwmmquLakehealth Beachwood Medical Center Start: 82-27-7501VrqfosbshMercy Health – The Jewish Hospitaltart: 82-43-0005OxxcxwhgtMercy Health – The Jewish Hospitaltart: 65-07-0831CyuknemnpMercy Health – The Jewish Hospitaltart: 07-11-2024 End: 33-28-7575Nmotvsf encounter vpsizebes32/25/2025 1:15 PM EST Office Visit [facility] [address] [place] [address] Matteo Melo MD [address] [place] [address] [facility]ITALtart: 80-41-8782DafmqrfksLakehealth Beachwood Medical Center Start: 78-83-6471Aasvjhl venous cannula insertionOR Infusaport Insertion/Removal (Not Applicable)[facility] Hospitaltart: 96-74-2609RvkufczcfMercy Health – The Jewish Hospitaltart: 06-23-2024 End: 33-59-9049Iagmbcc encounter procedureNOMS SH AUDComment on above:Arrived Start: 13-18-2709Fycrnak referralJoint Township District Memorial Hospital Work Phone: Start: 06-05-2024 End: 83-48-6006Igpsltk encounter esnnvfcgr04/20/2025 1:[address] [facility] [address] [place] [address] [facility] Hospitaltart: 05-30-2024 End: 64-15-1026Zghgaueiwfkp consultation with oedjujs5305/30/2024 11:45 AM EST Telemedicine [facility] [address] [place] [address] [place] [address] [place] [address] [facility]tart: 05-11-2024 End: 86-47-0754Begdagk incl fluor gdnce dx w/cell washg spx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 05/11/2024 7:17 AM ESTVirtual TATIANA Turner [place] Start: 05-11-2024 End: 63-93-9456Wypurhmxuukoq flexible transoral diagnosticEsophagoscopy Malignant neoplasm of floor of mouth 05/11/2024 7:17 AM ESTVirtual TATIANA Turner [place] Start: 05-11-2024 End: 86-53-6572Zoesdtcscqh hemiglossectomyGLOSSECTOMY, ROBOT-ASSISTED, ORAL APPROACH Malignant neoplasm of floor of mouth 05/11/2024 7:17 AM ESTVirtual TATIANA Turner ORStart: 05-11-2024 End: 66-89-0025Klylwjyywkdp w/wo tracheoscopy dx except newbornDirect Laryngoscopy Malignant neoplasm of floor of mouth 05/11/2024 7:17 AM ESTVirtual TATIANA Turner ORStart: 05-11-2024 End: 69-87-9681Xfranzjyljamt primary/secondary age 11/>Tonsillectomy Malignant neoplasm of floor of mouth 05/11/2024 7:17 AM ESTVirtual TATIANA Turner ORStart: 38-51-4827Ylwoavqhun hospital visit by zmdfkroho66/04/[address] [facility] [place] [address] [place] [address] [place] [address] [place] [address] [facility] Johnny ORStart: 04-07-2024 End: 44-62-3024Iiltuzf for Pre-Admission Testing VisitRequest for Pre-Admission Testing Visit Procedures Routine Oral lesion Malignant neoplasm of floor of mouth Expected: 04/07/2024 (Approximate), Expires: 04/07/2025[facility] Service Area Work Phone: Comment on above:Expected: 04/07/2024 (Approximate), Expires: 04/07/2025Start: 03-08-2024 End: 02-26-4166Nxrabqr encounter procedureNOMS CI ENTComment on above:Arrived Start: 02-16-2024 End: 10-70-0686Jdkrgyf encounter nfqhmpzwi08/02/2024 2:30 PM EDT Office Visit [facility] [address] [facility] [address] [place] [address] Luc Ham MD [address] [facility] [address] [place] [address] [facility] CI ENTStart: 02-16-2024 End: 03-12-9351Gflhxqa encounter procedureNOMS NICOLETT[address] STATE ROUTEComment on above:ArrivedStart: 02-01-2024 End: 18-71-4956Ibbcnhl encounter awdeguvza04/17/2024 1:10 PM EDT Office Visit [facility] [address] [facility] [address] [place] [address] Luc Ham MD [address] [facility] [address] [place] [address] ArrivedNOMS CI ENTComment on above:ArrivedStart: 84-79-7124Kdprf-19 Vaccine ()Covid-19 Vaccine ()[facility] Centertart: 89-74-5750Xnjdu-19 Vaccine ( season) Covid-19 Vaccine ( season)[facility] Centertart: 21-82-7988Sehqs-19 Vaccine ( season)Covid-19 Vaccine ( season)[facility] Centertart: 09-36-1543Wrkazencb vaccinationInfluenza Vaccine (#1)[facility] Centertart: 07-35-2422Cehryop Directive DiscussionAdvance Directive Discussion [facility]ertart: 26-74-7209Ylkhg-19 Vaccine ( season)Covid-19 Vaccine ( season)[facility]ertart: 51-70-2898Jpgvdbdcc vaccinationInfluenza Vaccine (#1)[facility] Centertart: 37-48-9848xdfltdkchv AmbulatoryFacility:U4Ccwov: 11-75-9609Bgyfhpp Directive DiscussionAdvance Directive DiscussionUniversity Hospitals Elyria Medical Centertart: 55-67-4606Mcqytdjend Assessment Depression AssessmentUniversity Hospitals Elyria Medical Centertart: 00-32-2151MOA of right ankleMR ankle RT [facility] CtrStart: 15-96-4842XH pre/post mri xrayXR pre/post mri xrSamaritan North Health Center CtrStart: 45-58-9688Sgiyemvuepid Vaccine: 65+ (2 - PPSV23 or PCV20)Pneumococcal Vaccine: 65+ (2 - PPSV23 or PCV20)[facility]ertart: 08-94-1686Chglhcauoufs Vaccine: 65+ (2 of 2 - PPSV23 or PCV20)Pneumococcal Vaccine: 65+ (2 of 2 - PPSV23 or PCV20)[facility] Centertart: 75-25-9813PRS High Risk: (Elderly (60+) or Population) (1 - 1-dose 75+ series)RSV High Risk: (Elderly (60+) or Population) (1 - 1-dose 75+ series)[facility]Start: 71-68-0412GRR Vaccine (1 - 1-dose 75+ series)RSV Vaccine (1 - 1-dose 75+ series)[facility]ertart: 64-64-9324OKR Vaccine (1 - 1-dose 60+ series)RSV Vaccine (1 - 1-dose 60+ series) [facility]ertart: 76-56-2983Njitbmfm Vaccine (1 of 2)Shingrix Vaccine (1 of 2)[facility] Centertart: 35-18-5528Cyxjlpld ScreeningDiabetes ScreeningUniversity Hospitals Elyria Medical Centertart: 07-29-9297XIcR/Tdap/Td Vaccines (1 - Tdap)DTaP/Tdap/Td Vaccines (1 - Tdap)[facility]: 15-00-8405Occcp microalbumin profileDTaP,Tdap,Td Vaccine (1 - Tdap)[facility] Centertart: 51-68-8112Tehjw screening for proteinDiabetes: Urine Protein ScreeningUnBerger Hospital: 21-03-7449Qldnwig ScreeningAnxiety ScreeningUniversity Hospitals [facility] Start: 14-63-1493Ynluptyaup ScreeningDepression ScreeningUniversity Hospitals Elyria Medical Centertart: 14-46-2496Spyktkma screeningDiabetes: Retinopathy ScreeningUnBerger Hospital: 21-73-5264Ohihqp wellness visitWelcome to Medicare Visit [facility]: 81-62-6579VsrerkqfijfxhbuwIcbekjgdrmhriz [facility]: 96-13-7881Gxcsqrdlrl A1c measurement Diabetes: Hemoglobin P4FLhihhjiarcBerger Hospital: 25-36-5297Vcjtl panelLipid PanelUnBerger Hospital: 06-15-1940Medicare Annual Wellness VisitMedicare Annual Wellness Visit (AWV)[facility]: 40-79-0130Gjyue screening for proteinDiabetes: Urine Protein ScreeningZanesville City Hospital End: 16-61-1812Rlpqgmh device check - InpatientLE[facility] Service Area Work Phone: Comment on above:Once for 1 Occurrences starting 05/11/2024 until 05/11/2024 End: 53-70-3293Cefzsnu device check - SurgeryUnLake County Memorial Hospital - West Work Phone: Comment on above:Once for 1 Occurrences starting 05/11/2024 until 4Comprehensive metabolic 1999 panel - Serum or Plasma [facility] CenterComprehensive metabolic 1999 panel - Serum or PlasmaLakehealth Beachwood Medical CenterComprehensive metabolic 1999 panel - Serum or PlasmaLakehealth Beachwood Medical CenterComprehensive metabolic 1999 panel - Serum or PlasmaLakehealth Beachwood Medical CenterComprehensive metabolic 1999 panel - Serum or [facility] CenterCT Abdomen W contrast [facility] SystemCT with contrast for radiotherapy planningLakehealth Beachwood Medical CenterCT with contrast for radiotherapy planningLakehealth Beachwood Medical Center End: 77-36-0349Eadiytw [Mass/volume] in Serum or PlasmaPOCT Glucose Point of Care Testing - Docked Device Routine Once (Lab) for 1 Occurrences starting until 05/11/2024[facility] Service Area Work Phone: Comment on above:Once (Lab) for 1 Occurrences starting 05/11/2024 until 05/11/2024Laryngoscopy w/wo tracheoscopy dx except Direct Laryngoscopy Oral lesion Malignant neoplasm of floor of mouthVirtual [facility] End: 86-93-0205KU Biliary ducts and Pancreatic duct WO and W contrast IVMRI PANC/TRISH WO/W IVCON Radiology Routine IPMN (intraductal papillary mucinous neoplasm) 1 Occurrences starting 02/01/2024 until 5CDunlap Memorial Hospital Work Phone: Comment on above:1 Occurrences starting 02/01/2024 until 03/02/2025 End: 34-59-8536FZ Unspecified body region 3D post processingMRI 3D POST PROCESSING Radiology Routine IPMN (intraductal papillary mucinous neoplasm) 1 Occurrences starting 02/01/2024 until 5ClevelBrown Memorial HospitalComment on above:1 Occurrences starting 02/01/2024 until 03/02/2025Patient Education [facility] Work Phone: Patient referralJoint Township District Memorial Hospital Work Phone: Surgical pathology studySurgical Pathology Exam Pathology and Cytology Routine Oral lesion 04/07/2024 11:37 AM [facility] Work Phone: Surgical pathology studyLEA REGIONAL [facility]ICAL [facility]ENTER Service Area Work Phone: Comment on above:Release Upon Ordering for 1 Occurrences starting 05/11/2024, 1 completed End: 12-61-4764Oqrjicmb pathology [facility] Service Area Work Phone: Comment on above:Once (Lab) for 1 Occurrences starting 06/05/2024 until 06/05/2024, 1 [facility]Mem[facility] Immunizations Immunization DateImmunizationNotesCare YikgjvsmXuwkozsz73-57-6415zvzegkuoj, high dose seasonal, preservative-free; Translations: [Fluzone High Dose Vaccine] Demetrius Cooper [phone]-NxyjcC[facility] [place] 29-35-4213qkojzblfd virus vaccine, unspecified formulationMary Schneider MD Work Phone: [facility] Work Phone: [phone]lo vaccine recombinantMuhammad Sarmini [phone]-GemoyCleveland Clinic [facility] Isolko06-41-2576 pneumococcal 20-valent conjugate vaccineMuhammad Sarmini 076-3310Pmszwq-ImzwyC[facility] Clinic [facility] Xgokht32-84-3864 zoster vaccine recombinantMuhammad Sarmini 226-5095Yvtgwe-JhbnmC[facility] Clinic [facility] Gajqdx35-61-6415 COVID-19 (PFIZER) 12Y and Leda Cooper MD Work Phone: [facility]11-27-2023influenza virus vaccine, unspecified formulationAnjali Ruby [phone]-UbgcnCleveland Clinic [facility] Ttwvyp36-93-8028 Pfizer Haque Cap SARS-CoV-2 VaccinationLuc Ham MD Work Phone: [facility] HospitalCshnciivxv50-05-0756NUMH-KqI-0 mRNA (vutkmmxzsqr-nqmi-zlbskel) vaccineSleno Cooper 196-1931Lmmtxx-KltbyPremier Health [facility] Center07-12-2022 SARS-CoV-2, UnspecifiedAngeserena PEMBERTON Work Phone: NOMercy McCune-Brooks HospitalGjfvjnmnyv60-71-8942ZVQU-AxF-0 (COVID-19) mRNA BNT-162b2 vaxSleno Cooper [phone]-OadcpPremier Health Upper Valley Medical CenterComment on above: Result Comment: 2022-11-03: WBT8066-20-2369HVCP-XqC-8, UnspecifiedLuc Ham MD Work Phone: [facility] HospitalHdfavlfyzi43-16-5718rssxzyzke virus vaccine, unspecified formulationSleno Cooper [phone]-ZbcjlPremier Health [facility] Medical Center10-05-2021 Influenza, injectable, Madin Mireya Canine Kidney, preservative free, quadrivalentLuc Ham MD Work Phone: [facility] HospitalHpcsluadyg39-35-0303TCBV-WrB-8 (COVID-19) Ad26 vaccine, recombinantPatrick GALICIA [facility] Pmnghpzv30-81-8841EZFM-FbA-3 (COVID-19) mRNA BNT-162b2 vaxPatrick GALICIA [facility]02-11-2021SARS-CoV-2, Jose Rafael Ham MD Work Phone: [facility] HospitalXposqxagqn96-21-9483ADJM-YjU-6 (COVID-19) Ad26 vaccine, recombinantPatrick GALICIA [facility] Iuojlwsq00-06-5614OQCR-RdQ-6 (COVID-19) mRNA BNT-162b2 vaxPatrick [employer] [facility]01-21-2021SARS-CoV-2, LuisifiedLuc Ham MD Work Phone: [place] [address]Ihknujjbay06-78-3107mspmgosyd virus vaccine, unspecified formulationSleno Cooper [phone]-WqsitPremier Health [facility] Center09-30-2020 Influenza, injectable, Madin Mireya Canine Kidney, preservative free, quadrivalentLuc Ham MD Work Phone: [facility] HospitalWowpzoppkv54-40-5942gkmlvpfem, high dose seasonal, preservative-freeLuc Ham MD Work Phone: [facility] HospitalYqfwysuero77-59-3035oyrtsoccs virus vaccine, unspecified formulationLuc Ham MD Work Phone: [place] [address]Dytyycydro64-46-2389qudfpfuyt, injectable, quadrivalent, contains preservativeLuc Ham MD Work Phone: [facility] HospitalXrswcmltsc20-86-6780oenyukypk, unspecified formulationSleno Cooper [phone]-GytkcPremier Health [facility] Center09-16-2014 pneumococcal conjugate vaccine, 13 valentSleno Cooper [phone]-OofrlPremier Health [facility] Center09-16-2014 pneumococcal conjugate vaccine, 7 valentHfani Ham MD Work Phone: [facility] Payers DatePayer CategoryPayerPolicy [id number] Health Insurance [id number]-cvc [id number] Eligibility Medicare/Medicaid [facility] DUAL COMPLETE [id number] [id number] 2023Medicare (Managed Care)[id number] 2023Medicare [id number] 2.0.7.231611.040819 [id number] [id number] [id number] 1960 [id number] 2.840.1.644157.3.579.2.647 23-29-1356Xpyseir0423604 2.840.1.984084.3.579.2.77562-56-3921Vsljckr2574239 2.840.1.097204.3.579.2.78863-91-4594Lnvnwsn5342910 2.16.840.1.231924.3.579.2.55005-01-3607Zywgeqf0056723 2.16.840.1.272917.3.579.2.79611-33-4951Dgabymr7170406 2.16.840.1.581469.3.579.2.72190-74-2560Tpkhgyv8568063 2.16.840.1.483587.3.579.2.88636-98-8861Qayuzgb2061400 2.16.840.1.819762.3.579.2.65881-42-9572Epafitw1540120 2.16.840.1.854567.3.579.2.67990-54-2765Ryffimu0514588 2.16.840.1.099646.3.579.2.71303-66-3491Lwwtuha8346057 2.16.840.1.528085.3.579.2.52980-90-7102Otmgugf6569784 2.16.840.1.354835.3.579.2.44516-52-3416Gdjsghu8954882 2.16.840.1.645892.3.579.2.69963-12-2927Acundjn6158405 2.16.840.1.759884.3.579.2.33507-17-3955Ctchlnf7043009 2.16.840.1.302700.3.579.2.85115-73-4431Vnuaooe0652471 2.16.840.1.255332.3.579.2.27681-16-9846Oywzadl3529836 2.16.840.1.660571.3.579.2.67960-77-5040Upzprbv8055109 2.16.840.1.305540.3.579.2.02589-42-0813Mjevdnw9884975 2.16.840.1.587389.3.579.2.15577-09-3815Ycdufgg7650850 2.16.840.1.527500.3.579.2.32310-59-6798Nopjxgb1937752 2.16.840.1.259205.3.579.2.07546-67-9532Tnalqea696707414 2.16.840.1.793218.3.579.2.53978-35-7066Kijkjlf447964894 2.16.840.1.179148.3.579.2.12368-77-4160Abcocwl451702426 2.16.840.1.463437.3.579.2.81696-00-0226Jutsyzh46843779 2.16.840.1.795678.3.579.2.76970-75-6590Gxsurnr26646066 2.16.840.1.486986.3.579.2.05938-07-3892Wnrcthe19645671 2.16.840.1.040541.3.579.2.31092-78-8750Mthltbw54809198 2.16.840.1.597583.3.579.2.26245-48-0655Zpehiss12813430 2.16.840.1.729073.3.579.2.25599-76-9693Gezeyij88186571 2.16.840.1.020806.3.579.2.14711-17-7636Woasrtp13632180 2.16.840.1.573754.3.579.2.74302-17-1398Lmfawxv55637302 2.16.840.1.861660.3.579.2.64942-91-3128Qoiqqbj57926445 2.16.840.1.912913.3.579.2.18561-68-6951Byuxauc01563667 2.16.840.1.921358.3.579.2.96503-25-9097Gwctzjy64408268 2.16.840.1.226979.3.579.2.92023-17-1083Vgsqeve89057697 2.16.840.1.606733.3.579.2.19282-16-1498Qagltqs22749268 2.16.840.1.184360.3.579.2.30972-48-8904Yxihqss71505496 2.16.840.1.218226.3.579.2.83922-73-9664Wvleoms276045518 2.16.840.1.803587.3.579.2.949795-86-2308Ovxxdqw730649716 2.16.840.1.514765.3.579.2.071081-86-0194Yzwrjby255370425 2.16.840.1.672968.3.579.2.006537-15-5323Qgbywgr371361596 2.16.840.1.303181.3.579.2.978107-98-3059Sdcpomg720536689 2.16840.1.970344.3.579.2.990161-69-0854Ibjbdpt337790634 2.16.840.1.102870.3.579.2.241314-01-3066Fvvizkb39426923 2.16.840.1.478488.3.579.2.391965-26-9237Kzeqsmb63951534 2.16.840.1.278355.3.579.2.711773-49-9029Bcpwzgl07533050 2.16.840.1.448120.3.579.2.884680-12-3397Patmots52110561 2.16.840.1.688492.3.579.2.295205-17-1171Nmqzjqj12990947 2.16.840.1.293784.3.579.2.708098-47-7369Rotsetz3591532 2.16.840.1.957417.3.579.2.467428-86-0279Jzrlmim3406739 2.16.840.1.054977.3.579.2.859119-18-4844Tlbfmtj9242198 2.16.840.1.117584.3.579.2.539156-85-0941Eniyrwm1381170 2.16.840.1.985256.3.579.2.375985-56-6333Onhywzs7087213 2.16.840.1.296735.3.579.2.925332-82-9663Ozcfpls9717585 2.16.840.1.453278.3.579.2.585294-19-5679Qojttsi5911009 2.16.840.1.798676.3.579.2.446529-97-9477Oamrppg0840892 2.16.840.1.593774.3.57[id number] 2.16.840.1.332676.3.579.[id number] 2.16.840.1.006164.3.579.[id number] 2.16.840.1.085098.3.579.2.872008-43-0985Wsvcgsk0602054 2.16.840.1.244345.3.579.2.5[id number] 2.16.840.1.266752.3.579.[id number] 2.16.840.1.414273.3.579.2.96711-58-2608Oawwyed54126704 2.16.840.1.847689.3.579.2.62514-13-2579Ejzrgan16535192 2.16.840.1.639715.3.579.2.16985-80-4279Rtlqcnk82265356 2.840.1.5001[id number] 2.840.1.471376.3.579.2.531 Wkppvdh84759213 2.840.1.078623.3.579.2.804Mggrgks81812747 2.840.1.998206.3.579.2.493Ktbqdbi81050262 2.840.1.025857.3.579.2.531 Uquulij07040058 2..1.174890.3.579.2.320Tlbhehd60025455 2.840.1.068183.3.579.2.393Yzycjmj04559021 2.840.1.929005.3.579.2.531 Xcjfxal64228638 2.840.1.703457.3.579.2.743Heizmkw47711779 2..1.852742.3.579.2.912Xiohlhf36262232 2.84.1.261642.3.579.2.531 [id number] 2.840.1.563078.3.579.2.702Pdmyxnb98843553 2.840.1.541942.3.579.2.829Ayvafqa12939861 2.840.1.986392.3.579.2.531 [id number] 2.840.1.796519.3.579.2.657Vtbuawu12283690 2.840.1.204580.3.579.2.955Eavzdyx46865131 2.840.1.193968.3.579.2.531 Gwriypp00794416 2.16.840.1.801125.3.579.2.280Ubpmdbs62645628 2.16.840.1.506855.3.579.2.365Rbcrggl33944914 2.16.840.1.806409.3.579.2.531 Dhmjcir16843210 2.16.840.1.244446.3.579.2.057Zelxphe60818658 2.16.840.1.381715.3.579.2.755Feljnww74784857 2.16.840.1.367687.3.579.2.531 Social History DateTypeDetailFacilityTobacco smoking status NHISUnknown if ever smokedCincinnati Children[facility] CtrStart: 80-18-4074Ebi [facility] At [facility]art: 04-01-2023 End: 98-52-4200Pcy Assigned At [facility] Hospitaltart: 04-27-2022 End: 23-49-8945Clpetwi smoking statusEx-smoker (finding)[facility] on above:former smoker quit at age 41, 1 PPDPatient states he smoked about 1.5 PPD, cigarettes, from about 17 y.o. to about 41 y.o.Start: 04-10-2022 End: 99-14-3247Hcxxgbi smoking statusNeverExec[facility] on above:former smoker quit at age 41, 1 PPD Patient states he smoked about 1.5 PPD, cigarettes, from about 17 y.o. to about 41 y.o. End: 46-02-6285Cpxmdbi of tobacco useCurrent smokerUniversity Hospitals Geaug[facility] Medical [facility] End: 16-93-4535Wzeegcx of tobacco useCigarette SmokerUniversity Hospitals Elyria Medical Centertart: 71-04-5095Cbeyugx use and exposureSmokeless tobacco non-userUniversity Hospitals Geauga Medical Center Start: 04-01-2023 End: 49-03-7992Kjphdki of Social functionUniversity Hospitals Elyria Medical Centertart: 99-19-3768Hcu Assigned At BirthNot on fileUniversity Hospitals Geauga Medical CenterHistory of tobacco usePassive smoker [facility] HealthcareStart: 02-12-2024 End: 39-21-5776Ekpmpfnlk beverage intakeCurrent drinker of alcohol (finding)[facility] HealthcareStart: 53-67-2304Rjrtzji CommentYears smoked: 25[facility] HealthcareStart: 18-19-5748Gnsldqv Comment1 or 2 drinks/day, monthly or less; Caffeine: 1 drink/dayBE[facility] HealthcareStart: 04-07-2024 End: 34-41-6165Rfwhpki use and exposureFormer smokeless tobacco userUnLake County [facility] Hospital [facility] Work Phone: Start: 04-01-2024 End: 17-54-7917Xaxialjd to SARS-CoV-2 (event)Not sureUnLake County Memorial Hospital - WestStart: 70-04-8910Utjauv identityIdentifies as male gender (finding) [facility] Work Phone: Start: 70-87-5509Hchplv orientationHeterosexual (finding)[facility] Work Phone: Start: 06-14-2024 End: 28-74-1234ZcnOcln (finding)[facility] Hospitaltart: 08-20-2024 End: 37-21-3435Iosylcv smoking status NHISNever smoked tobacco (finding) [facility] Hospitaltart: 91-34-1774VJMT Follow upSDOH Follow up [facility] Work Phone: Sexual OrientationCenterville Start: 56-57-3904Wesxfxh Commentor less or week [facility] Work Phone: Medical Equipment Procedure CodeEquipment CodeEquipment Original TextEquipment IdentifierDates Insertion of central venous catheter (CVC) with subcutaneous port for chemotherapyVascular port/[id number] FDA Start: 07-17-2024 End: 22-05-9264Bga Instructions, one touch ultra test strips test sugars once a dayStart: 40-23-2437Jue Instructions, one touch ultra lancets Use to test sugars once a dayStart: 32-17-6947Ocg Instructions, one touch ultra test strips test sugars once a dayStart: 27-03-5696Upo Instructions, one touch ultra lancets Use to test sugars once a dayStart: 31-89-1171Xli Instructions, one touch ultra test strips test sugars once a dayStart: 73-94-0732Pba Instructions, one touch ultra lancets Use to test sugars once a dayStart: 53-86-0109Dpc Instructions, one touch ultra test strips test sugars once a dayStart: 83-44-5156Xoz Instructions, one touch ultra lancets Use to test sugars once a dayStart: 13-00-6732Wsc Instructions, one touch ultra test strips test sugars once a dayStart: 72-11-2077Vxk Instructions, one touch ultra lancets Use to test sugars once a dayStart: 05-90-6703Gsr Instructions, one touch ultra test strips test sugars once a dayStart: 64-93-3902Kxy Instructions, one touch ultra lancets Use to test sugars once a dayStart: 43-97-6904Lvw Instructions, one touch ultra test strips test sugars once a dayStart: 54-91-9292Mqh Instructions, one touch ultra lancets Use to test sugars once a dayStart: 94-14-5892Pqf Instructions, one touch ultra test strips test sugars once a dayStart: 19-24-5969Wzh Instructions, one touch ultra lancets Use to test sugars once a dayStart: 18-74-5912Isj Instructions, one touch ultra test strips test sugars once a dayStart: 61-54-6275Kts Instructions, one touch ultra lancets Use to test sugars once a dayStart: 35-55-7717Ill Instructions, one touch ultra test strips test sugars once a day Start: 70-56-7816Hcm Instructions, one touch ultra lancets Use to test sugars once a dayStart: 13-08-0454Kze Instructions, one touch ultra test strips test sugars once a dayStart: 73-95-0980Nzc Instructions, one touch ultra lancets Use to test sugars once a dayStart: 60-09-9995Wwi Instructions, one touch ultra test strips test sugars once a dayStart: 60-57-1583Feq Instructions, one touch ultra lancets Use to test sugars once a dayStart: 85-27-6771Vta Instructions, one touch ultra test strips test sugars once a dayStart: 77-55-3574Xho Instructions, one touch ultra lancets Use to test sugars once a dayStart: 39-24-7078Yjr Instructions, one touch ultra test strips test sugars once a dayStart: 72-74-9960Qdg Instructions, one touch ultra lancets Use to test sugars once a dayStart: 63-47-5712Aij Instructions, one touch ultra test strips test sugars once a dayStart: 51-45-1909Toy Instructions, one touch ultra lancets Use to test sugars once a dayStart: 52-07-4555Bsc Instructions, one touch ultra test strips test sugars once a dayStart: 27-77-4581Xnh Instructions, one touch ultra lancets Use to test sugars once a dayStart: 87-80-2866Ymb Instructions, one touch ultra test strips test sugars once a dayStart: 99-54-4649Kwv Instructions, one touch ultra lancets Use to test sugars once a dayStart: 08-24-2022 Goals DatePatient GoalDesired Activity/State Functional Status XeqeHkuwxjfdgiMbtdrwOmjlguuh70-27-0864Trrzqwf Health Questionnaire 2 item (PHQ- 2) [Reported][facility] Work Phone: 1(144) 567-673804975329-89-4187Duwzksmxav statusPatient at Baseline [facility] Work Phone: 1(631) 768-451711391752-79-4471Tovwdrmyku StatusN/[facility] Dmuxol91-38-9360Xpxdfpgfds StatusN/[facility] Tkjken36-98-6459Wmpgqbnntp StatusN/[facility] Ljtukk31-64-6369Hwkkfdypas StatusN/[facility] Pifull23-97-4149Zccdsplpjy StatusN/[facility] Ifltyq22-14-5108Clckxcdlvz StatusN/[facility] Bhrcyh45-72-3142Ohzefaybse StatusN/[facility] Nzzcag12-69-7866Zxmyrgonnt StatusN/[facility] 95-84-3060Xrhktjrrai StatusN/[facility] Mental Status QhapXrejudssagVcntyyQdhznshl82-40-0851Jiuitmpvy functionCognitive Status Patient at [facility] Work Phone: Clinical Notes 11-29-2021 to 01-18-2025 Note Date & AulgZaflAkstaggo60-97-5376 History of Present illness Narrative* Veena Adkins DO - 01/18/2025 9:45 AM EDT Images [...] I'll see him PRN. documented in this encounterSouthPointe HospitalYdshftrlsg34-89-8080 Evaluation note* Diagnosis Onset Date Resolution Status Admit Date Squamous cell carcinoma of oropharynx acuteAugust 2024 12:32pmSquamous cell carcinoma of oropharynxacuteOctober 2024 9:41am [facility] Work Phone: 1(716) 865-443708-12-2025 Progress noteUnBaptist [facility] [place] [address] Cancer Center Note Signed Patient: Jeremie Bennett MR#: [id number] : 1940 Acct:[id number] Age/Sex: 84 / M Type: DEP AMB [...] G-tube was placed by surgery here at [facility] and patient is hopeful to have [...] Allergy (Unknown, Verified 11/23/24 10:00) hives [facility] Medical History Medical History (Updated [...] Mother Heart disease [facility]: Diagnosed with Stroke Hypertension Emphysema lung ESRD (end stage renal disease) Sister [facility]: Diagnosed with Cancer [...] any of the above?: No Dictated By: Marilia Crouch APRN DD/ 1303 Signed By: 12/26/24 1343 [facility]07-28-2025 History of Present illness Narrative * Mary Schneider MD - 12/11/2024 1:45 PM EDT HEAD AND NECK SURGERY FOLLOW UP [facility] Referring Provider: Dr. [...] onc) and Dr Lamas (med onc) at [facility] - November 2024 post treatment [...] lymph nodes Procedure Note: Diagnostic Flexible Laryngoscopy (54596) Indication: patient symptoms requiring evaluation of pharyngeal/laryngeal/hypopharyngeal [...] now s/p completion of chemoradiation treatment at [facility] August 2024 - Doing well overall, scope and exam findings with improved thick mucous and edema. JUVE today on exam or imaging - Continue X [employer] EQUIPMENT SERVIC[employer] therapy, he will do this closer [...] concerns Mary Schneider MD documented in this [facility] Work Phone: 1(683) 677-977707-22-2025 NoteUT Electrophysiology Consult Note [place] [facility] - [facility] Reason for visit: Device [...] [facility] Heart valve disease Hyperlipidemia Throat cancer ([facility]/HCC) [place] (ventricular tachycardia) ([facility]) PSH: Past Surgical History: Procedure Laterality [...] on file Intimate Partner Violence: Unknown (07/08/2023) [place] Safety & Environment Fear of Current or Ex-Partner: Not on file Emotionally Abused: Not on file Physically Abused: Not on file Sexually Abused: Not on file Physically or Sexually Abused: Not on file Depression: Not at risk (09/11/2024) Received from [facility] PHQ-2 Patient Health Questionnaire-2 Score: 0 [...] MOUTH IN THE MORNING 100 tablet 3 LLHDKTFRPO-DDCQXRW-NWJGHTAA ORAL Take by mouth if needed. clopidogrel [...] 1 tablet every day by oral route. mnftincbjh-nspvrpwzyiptw-jnxm (Esgic) 50-325-40 mg capsule Take 1 capsule [...] mg by mouth in the morning. HYDROcodone-acetaminophen (Ong) 5-325 mg tablet Take 1 tablet by mout (more content not included)...[facility] [place] [address] Cancer Center Note Signed Patient: Jeremie Bennett MR#: [id number] : 1940 Acct:[id number] Age/Sex: 84 / M Type: REG AMB [...] IHC was equivocal. As per the [facility] tumor board recommendation is either doing extensive [...] his week 1 of cisplatin. Labs at [facility] on 07/03/24 revealed hgb 13.3, cr is 1.0. He is having his labs here today.He had his pacemaker placed on 07/10/24 in [place]. 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 He is [...] squamous cell carcinoma. Tumor board at [facility] in [facility] and the recommended concurrent chemoradiation. Past [...] with concurrent chemoradiation. Since he lives in [place] he was referred by Dr. Mary Schneider from ENT at [facility] to our medical oncology and radiation oncology at [facility]. He is referred to medical oncology [...] his week 1 of cisplatin. Labs at [facility] on 07/03/24 revealed hgb 13.3, cr is 1.0. He is having his labs here today.He had his pacemaker placed on 07/10/24 in [place]. 07/20/2024 he came in complaining of increase [...] concerns voiced at time of intake. [facility] Medical History Medical History Squamous [...] (end stage renal disease) Sister [facility] Problem: Diagnosed with Cancer [...] MD DD/ 0957 Signed By: 11/23/24 1026 [facility]07-10-2025 Evaluation note* Diagnosis Onset Date Resolution Status Admit Date Cancer associated pain acuteJuly 2024 7:46amSquamous cell carcinoma of oropharynxacuteJuly 2024 7:46amSquamous cell carcinoma of oropharynxacuteJuly 2024 9:41am Squamous cell carcinoma of oropharynxacuteJuly 2024 10:01amSquamous cell carcinoma of oropharynxacuteAugust 2024 12:32pm [facility] Work Phone: 1([phone] 244-352407-08-2025 NotePatient Education Endocrinology Blood Glucose Monitoring, Adult [...] Where to find more information ??? The [place] Diabetes Association: diabetes.org ??? The Association of [...] levels in y (more content not included)... [facility]05-15-2025 History of Present illness Narrative* NILAY Morales - 09/28/2024 2:00 PM EDT Images from the original note were not included. [facility] Jeremie Annabelle Bennett 1940 Subjective: Vertigo -he denies sx [...] -he denies any weakness or trouble with church official -he notes this is overall at baseline [...] 5 mg, Daily aspirin 81 mg, Daily glkucqaahu-mabrdwmputqzv-giwbmqau 50-325-40 MG tablet 1 tablet, Every 4 [...] 2004 ablation OTHER SURGICAL HISTORY 2006 sphincterotomy [place] CHOLECYSTECTOMY 02/2020 Laparoscopic Cholecystectomy - [place] IMPLANT ARTIFICIAL SPHINCTER 2017 PROSTATE 2000 TONSILLECTOMY [...] 2+ 2+ Patellar 2+ 2+ Coordination Right: Lmvjsc-cz-njws normal.Left: Smmwiq-rr-mvag normal. Gait Casual gait is normal including [...] up in 6 months documented in this encounterSouthPointe HospitalSiuebxfiuf00-20-8246 History of Present illness Narrative* Veena Adkins, [...] 5 mg, Daily aspirin 81 mg, Daily niqtwvuejk-efrfurewzxrmf-iremifwh 50-325-40 MG tablet 1 tablet, Every 4 [...] 2005 ablation OTHER SURGICAL HISTORY 2007 sphincterotomy [place] CHOLECYSTECTOMY 02/2020 Laparoscopic Cholecystectomy - [place] IMPLANT ARTIFICIAL SPHINCTER 2017 PROSTATE 2000 TONSILLECTOMY [...] schedule early next week. documented in this encounterSouthPointe HospitalHsjbqtcoro46-37-3433 Radiology Diagnostic study [facility] [place] [address] [place] [address] CT Scan Report Signed Patient: Jeremie Bennett MR#: [id number] : 1940 Acct:[id number] Age/Sex: 83 / M ADM Date: 5 Loc: ER Room: Type: [facility] ER Attending Dr: Copies to: [...] Gordon M.D. 09/20/2024 8:03 PM Dictation Location: [facility]--17 Transcribed By: [facility] 09/20/242002 Dictated By: Rafi Gordon II, MD 09/20/241947 Signed By: 09/20/242002 [facility] Work Phone: 1(233) 536-840205-07-2025 Hospital Discharge instructions Additional Instructions Please return [...] testing/monitoring to rule out evidence of possible cancer.[facility] Work Phone: 1(268) 338-355505-01-2025 NotePatient Education Nutrition BMI for Adults Body [...] for Disease Control and Prevention: cdc.gov ??? [place] Heart Association: heart.org ??? National Heart, Lung, and Blood [place]: nhlbi.nih.gov This information is not intended to replace advice given to you by your health care provider. Make sure you discuss any questions you have with your health care provider. Document Revised: 01/21/2023 Document Reviewed: 01/14/2023 [employer] Patient Education ? 2023 [facility] 09-[facility]2024 History of Present illness Narrative* Mary Schneider MD - 09/11/2024 2:00 PM EDT HEAD AND NECK SURGERY FOLLOW UP [facility] Referring Provider: Dr. Ham HPI I had the pleasure of seeing Jeremie Alanis Bennett as a follow up today. Spouse [...] onc) and Dr Lamas (med onc) at [facility] after completion of chemoradiation treatment earlier this month. Weight down to 149 lbs (prior 170 lbs). Swallowing liquids, saw X RAY EQUIPMENT SERVICER during treatment, not recently. Had pacemaker [...] lymph nodes Procedure Note: Diagnostic Flexible Laryngoscopy (25825) Indication: patient symptoms requiring evaluation of pharyngeal/laryngeal/hypopharyngeal [...] now s/p completion of chemoradiation treatment at [facility] August 2024 - Doing well overall, scope and exam findings as expected - Recommend continued X R[employer] EQUIPMENT SERVICER therapy, he will do this closer to home - Discussed imaging, he has PET scheduled in November - Will need post-treatment NavDx either now or at next appointment - Discussed NCCN guidelines and ongoing surveillance - Follow up with me in 2-3 months after PET, certainly sooner if any issues Mary Schneider MD documented in this [facility] Work Phone: 1(908) 884-594004-24-2025 Evaluation note* Diagnosis Onset Date Resolution Status Admit Date Tongue cancer acuteApril 2024 9:14amCAD (coronary artery disease)acuteApril 2024 9:55amCentral sleep apneaacuteApril 2024 9:55amDM (diabetes mellitus)acute September 11, 2024 9:55amEssential hypertensionacuteApril 2024 9:55am Obstructive sleep apneaacuteApril 2024 9:55amSquamous cell carcinoma of oropharynxacuteApril 2024 9:55amCancer associated painacuteMay 2024 2:36pmSquamous cell carcinoma of oropharynxacuteMay 2024 2:36pmThrush, oralacuteMay 2024 2:36pmCancer associated painacuteJuly 2024 7:46am Squamous cell carcinoma of oropharynxacuteJuly 2024 7:46amSquamous cell carcinoma of oropharynxacuteJuly 2024 9:41amTongue canceracuteJuly 2024 10:01am [facility] Work Phone: 1(487) 217-724604-24-2025 Evaluation note* Diagnosis Onset Date Resolution Status Admit Date Tongue cancer deletedApril 2024 9:14amCAD (coronary artery disease)acuteApril 2024 9:55amCentral sleep apneaacuteApril 2024 9:55amDM (diabetes mellitus)acute September 11, 2024 9:55amEssential hypertensionacuteApril 2024 9:55am Obstructive sleep apneaacuteApril 2024 9:55amSquamous cell carcinoma of oropharynxacuteApril 2024 9:55amCancer associated painacuteMay 2024 2:36pmSquamous cell carcinoma of oropharynxacuteMay 2024 2:36pmThrush, oralacuteMay 2024 2:36pmCancer associated painacuteJuly 2024 7:46am Squamous cell carcinoma of oropharynxacuteJuly 2024 7:46amSquamous cell carcinoma of oropharynxacuteJuly 2024 9:41amSquamous cell carcinoma of oropharynxacuteJuly 2024 10:01am [facility] Work Phone: 1([phone]) 666-214104-07-2025 [place] [address] Discharge Summary Signed Patient: Jeremie Bennett MR#: [id number] : 1940 Acct:[id number] Age/Sex: 83 / M Adm Date: 5 Loc: Room: [address] [place] [address]: Zeke Brennan MD Copies to: [...] discharged home stable condition the [facility] with few more days of oral [...] of Care Document Health Concerns: A [facility] screening has identified you as [...] Strong:Four Ways to Beat the Frailty Risk [email or web address].[facility]/health/mciisalx-ifi-hwykwheppf/st ia-kxiiva-pzla- avac-os-hdab-zvd-nlbgwrv-ptst Exam Physical Exam Vital Signs: Temp Pulse [...] % (Auto) 75.8, Lymph % (Auto) 9.0, [place] % (Auto) 13.6, Eos % (Auto) 1.0, Baso % (Auto) 0.6, Nucleat RBC Rel Count 0.1, Neut # (Auto) 4.7, Lymph # (Auto) 0.6 L, [place] # (Auto) 0.8, Eos # (Auto) 0.1, [...] % (Auto) 77.0, Lymph % (Auto) 10.5, [place] % (Auto) 11.3, Eos % (Auto) 0.7, Baso % (Auto) 0.5, Nucleat RBC Rel Count 0.2, Neut # (Auto) 5.7, Lymph # (Auto) 0.8 L, [place] # (Auto) 0.8, Eos # (Auto) 0.1, Baso # (Auto) 0.0, Monocyte Dist Width 23.19 H, ESR 42 H, PT 12.9, INR 1.1, Lactic Acid 0.8, C-Reactive Prot, Quant Cancelled 08/20/24 12:20: PHA Creatinine Clear 58.71, Sodium 136, Potassium 3.7, Chloride 104, Carbon Wdvfsqi21.4, Anion Gap 10.3, BUN 16, Creatinine 0.85, Est GFR (CKD- EPI) > 60.0, Glucose 106 H, Calcium 8.4 L, Total Bilirubin 0.6, AST 18, ALT 17, Alkaline Phosphatase 66, C-Reactive Prot, Quant 3.3 H, Total Protein 5.9 L, Albumin 3.4 L, Globulin 2.5, Albumin/Globulin Ratio 1.4 Documented By: Zeke Brennan MD 08/21/24 1407 Signed By: 08/21/24 1414 [facility]04-07-[address] [address] Hospitalist Progress Note Signed Patient: Jeremie Bennett MR#: [id number] : 1940 Acct:[id number] Age/Sex: 83 / M Adm Date: 5 Loc: Room: [address] [place] [address] Type: ADM IN Attending Dr: Zeke Brennan [...] care and confirmed it with the re sident/student/SUPERINTENDENT DISTRIBUTION. This patient presented to the emergency department [...] spray 08/21/24 09:00 08/21/24 09:02 Fluticasone Propionate Clifton 120 Clifton/16 Gm Bottle INTRANASAL 08/21/25 08:59 2 spray [...] Bottle EYE-BOTH 08/21/25 20:59 QPM [facility] Lidocaine/Prilocaine 1 applic 08/20/24 21:59 Lidocaine-Prilocaine [...] Signed By: 08/21/24 1414 08/21/24 1152 [facility]04-07-2025 Consult note Author Yash Thomas [facility] CenterNote Date/TimeApril 2024 11:10am[place] [address] Infect. Disease Consult Note Signed Patient: Jeremie Bennett MR#: [id number] : 1940 Acct:[id number] Age/Sex: 83 / M Adm Date: 5 Loc: Room: [address] [place] [address] Type: ADM IN Attending Dr: Zeke Brennan [...] 10 PM CC: Zeke Brennan MD [facility] Medical History Pacemaker Prostate cancer [...] Mother Heart disease [facility] of [facility]: Diagnosed with Stroke Hypertension [...] Tablet) 20 mg PO QPM [facility] Stop: 08/21/25 20:59 Clopidogrel Bisulfate (Clopidogrel Bisulfate 75 Mg Tablet) 75 mg PO DAILY [facility] Stop: 08/21/25 08:59 Last Admin: 08/21/24 09:00 Dose: 75 mg Dorzolamide HCl (Dorzolamide 2% Op Soln 200 Drops/10 Ml Bottle) 1 drops EYE-BOTH BID [facility] Stop: 08/21/25 08:59 Last Admin: 08/21/24 09:04 Dose: 1 drops Famotidine (Famotidine 20 Mg Tablet) 20 mg PO QPM [facility] Stop: 08/21/25 20:59 Fentanyl (Fentanyl Patch 12 Mcg/Hour Patch.Td72) 12 mcg TRANSDERML Q72HR [facility]; Protocol Fluticasone Propionate (Fluticasone Propionate Clifton 120 Clifton/16 Gm Bottle) 2 spray [facility]AL [facility] Stop: 08/21/25 08:59 Last Admin: 08/21/24 09:02 Dose: 2 spray Ceftriaxone Sodium (Rocephin) 1 gm in 50 mls @ 100 mls/hr IV QHS [facility] Isosorbide Mononitrate (Isosorbide Mononitrate 24hr Er 30 Mg Tab.Er.24h) 30 mg PO QAM [facility] Stop: 08/21/25 08:59 Last Admin: 08/21/24 09:00 Dose: 30 mg Latanoprost (Latanoprost 0.005% Op Soln 50 Drops/2.5 Ml Bottle) 1 drops EYE-BOTH QPM [facility] Stop: 08/21/25 20:59 Lidocaine/Prilocaine (Lidocaine-Prilocaine Cr 2.5-2.5% 5 Gm Tube) 1 applic TOPICAL ONCE PRN PRN Reason: pain Stop: 08/20/25 21:58 Metformin HCl (Metformin 500 Mg Tablet) 500 mg PO DAILY@0800 [facility] Stop: 08/21/25 07:59 Last Admin: 08/21/24 09:00 Dose: 500 mg Multi-Ingredient Mouthwash/Gargle (Magic Mouthwash With Lidocaine) 10 ml PO QIDPRN PRN Reason: mucositis Stop: 08/20/25 22:46 Nystatin (Nystatin Susp 500,000 Unit/5 Ml Udc) 500,000 unit PO QID [facility] Stop: 08/21/25 08:59 Last Admin: 08/21/24 [...] Tablet.Dr) 40 mg PO BID [facility] Stop: 08/21/25 08:59 Last Admin: 08/21/24 09:00 Dose: 40 mg Rivaroxaban (Rivaroxaban 10 Mg Tablet) 10 mg PO QHS [facility] Stop: 08/21/25 21:59 Sennosides (Sennosides 8.6 Mg Tablet) 8.6 mg PO BID PRN PRN Reason: constipation Stop: 08/20/25 21:58 Last Admin: 08/21/24 09:00 Dose: 8.6 mg Silver Sulfadiazine (Silver Sulfadiazine 1% Cream 400 Gm Jar) 1 applic TOPICAL BID [facility] Stop: 08/21/25 08:59 Last Admin: 08/21/24 09:07 Dose: 1 applic Sodium Chloride (Sodium Chloride 0.9 % 10 Ml Syringe) 0 ml IV-PUSH PRN PRN PRN Reason: Flush Stop: 08/20/25 16:56 Last Admin: 08/20/24 17:20 Dose: 10 ml Sodium Chloride (Sodium Chloride 0.9 % 10 Ml Syringe) 10 ml IV-PUSH Q8H [facility] Stop: 08/20/25 19:44 Last Admin: 08/21/24 03:06 Dose: Not Given Sotalol HCl (Sotalol 80 Mg Tablet) 40 mg PO BID [facility] Stop: 08/21/25 08:59 Last Admin: 08/21/24 09:01 Dose: 40 mg Tizanidine HCl (Tizanidine 4 Mg Tablet) 4 mg PO QPM [facility] Stop: 08/21/25 20:59 Zonisamide (Zonisamide 25 [...] signed by MD Yash Thomas> 08/21/24 1110 [facility] Work Phone: 1(864) 858-833804-07-[address] [address] Infect. Disease Consult Note Signed Patient: Jeremie Bennett MR#: [id number] : 1940 Acct:[id number] Age/Sex: 83 / M Adm Date: 5 Loc: Room: [address] [place] [address] Type: ADM IN Attending Dr: Zeke Brennan [...] 10 PM CC: Zeke Brennan MD [facility] Medical History Pacemaker Prostate cancer [...] 81 Mg Tab.Chew) 81 mg PO DAILY [facility] Stop: 08/21/25 08:59 Last Admin: 08/21/24 09:01 Dose: 81 mg Atorvastatin Calcium (Atorvastatin 20 Mg Tablet) 20 mg PO QPM [facility] Stop: 08/21/25 20:59 Clopidogrel Bisulfate (Clopidogrel Bisulfate 75 Mg Tablet) 75 mg PO DAILY [facility] Stop: 08/21/25 08:59 Last Admin: 08/21/24 09:00 Dose: 75 mg Dorzolamide HCl (Dorzolamide 2% Op Soln 200 Drops/10 Ml Bottle) 1 drops EYE-BOTH BID [facility] Stop: 08/21/25 08:59 Last Admin: 08/21/24 09:04 Dose: 1 drops Famotidine (Famotidine 20 Mg Tablet) 20 mg PO QPM [facility] Stop: 08/21/25 20:59 Fentanyl (Fentanyl Patch 12 Mcg/Hour Patch.Td72) 12 mcg TRANSDERML Q72HR [facility]; Protocol Fluticasone Propionate (Fluticasone Propionate Clif[place] 120 [place]/16 Gm Bottle) 2 spray [facility] Stop: 08/21/25 08:59 Last Admin: 08/21/24 09:02 Dose: 2 spray Ceftriaxone Sodium (Rocephin) 1 gm in 50 mls @ 100 mls/hr IV QHS [facility] Isosorbide Mononitrate (Isosorbide Mononitrate 24hr Er 30 Mg Tab.Er.24h) 30 mg PO QAM [facility] Stop: 08/21/25 08:59 Last Admin: 08/21/24 09:00 Dose: 30 mg Latanoprost (Latanoprost 0.005% Op Soln 50 Drops/2.5 Ml Bottle) 1 drops EYE-BOTH QPM [facility] Stop: 08/21/25 20:59 Lidocaine/Prilocaine (Lidocaine-Prilocaine Cr 2.5-2.5% 5 Gm Tube) 1 applic TOPICAL ONCE PRN PRN Reason: pain Stop: 08/20/25 21:58 Metformin HCl (Metformin 500 Mg Tablet) 500 mg PO DAILY@0800 [facility] Stop: 08/21/25 07:59 Last Admin: 08/21/24 09:00 Dose: 500 mg Multi-Ingredient Mouthwash/Gargle (Magic Mouthwash With Lidocaine) 10 ml PO QIDPRN PRN Reason: mucositis Stop: 08/20/25 22:46 Nystatin (Nystatin Susp 500,000 Unit/5 Ml Udc) 500,000 unit PO QID [facility] Stop: 08/21/25 08:59 Last Admin: 08/21/24 09:01 Dose: 500,000 unit Olanzapine (Olanzapine 2.5 Mg Tablet) 2.5 mg PO BID [facility] Stop: 08/21/25 08:59 Last Admin: 08/21/24 [...] Thomas MD 08/21/24 1053 Signed By: 08/21/24 [facility]0 [facility]04-07-2025 Radiology Diagnostic study note [facility] Main [place] [address] [place] [address] CT Scan Report Signed Patient: Jeremie Bennett MR#: [id number] : 1940 Acct:[id number] Age/Sex: 83 / M ADM Date: 5 Loc: 3T Room: [address] [place] [address] Type: ADM IN Attending Dr: Jaiden Nance [...] Christian Melton M.D.08/21/2024 5:58 AM Dictation Location: [place] [address] Transcribed By: [facility] 08/21/24 0558 Dictated By: Christian Melton DO 08/21/24 0555 Signed By: 08/21/24 0558 [facility]03-26-2025 Progress note Author Debora Wild [facility] CenterNote Date/TimeMarch 2024 10:25[place] [address] Palliative Medicine Encounter Patient: Jeremie Bennett MR#: [id number] : 1940 Acct:[id number] Age/Sex: 83 / M Copies to: RAYSHAWN [...] tablet 81 mg PO DAILY 06/14/24 08/09/24 ikpkjoj-npwjrdyichmml-kfmqsrmu 250 1 tab PO Q4-6H PRN pain [...] 08/09/24 Is patient having pain?: Yes [facility] Medical History (Updated 08/09/24 @ 09:38 by Viola Adan [facility]) Pacemaker Prostate cancer surgery Neuropathy Vertigo [...] Alcohol Substance Abuse Comment: rare alcohol use [place] Symptom Assessment Scale Pain: throat pain controlled [...] recorder, note dictated by Debora Wild APRN, [employer] Dictated By: Debora Wild APRN DD/ 0945 Signed By: <Electronically signed by RAYSHAWN Wild> 08/09/24 1025 [facility] Work Phone: 1(668) 476-205803-26-2025 [place] [address] Palliative Medicine Encounter Patient: Jeremie Bennett MR#: [id number] : 1940 Acct:[id number] Age/Sex: 83 / M Copies to: RAYSHAWN [...] tablet 81 mg PO DAILY 06/14/24 08/09/24 iktakqd-gbeuqbtetvzpi-zrkltoab 250 1 tab PO Q4-6H PRN pain [...] Alcohol Substance Abuse Comment: rare alcohol use [place] Symptom Assessment Scale Pain: throat pain controlled [...] APRN DD/ 0945 Signed By: 08/09/[address] [place], [place] 4302803-12-2025 Progress note Author Maru Ma [facility] CenterNote Date/TimeMarch 2024 12:02[place] [address] Palliative Medicine Encounter Patient: Jeremie Bennett MR#: [id number] : 1940 Acct:[id number] Age/Sex: 83 / M Copies to: DO [...] tablet 81 mg PO DAILY 06/14/24 07/26/24 auvmmmn-khhumsmifrtpi-ypabpnlc 250 1 tab PO Q4-6H PRN pain [...] Alcohol Substance Abuse Comment: rare alcohol use [place] Symptom Assessment Scale See above Exam Exam [...] <Electronically signed by FELLOW Mario El> 07/26/24 0944 [facility] Work Phone: 1([phone]) 354-700803-12-2025 [place] [address] Palliative Medicine Encounter Patient: Jeremie Bennett MR#: [id number] : 1940 Acct:[id number] Age/Sex: 83 / M Copies to: DO [...] tablet 81 mg PO DAILY 06/14/24 07/26/24 zsnpgkq-wvsjbmsftocfo-ceztihuk 250 1 tab PO Q4-6H PRN pain [...] Alcohol Substance Abuse Comment: rare alcohol use [place] Symptom Assessment Scale See above Exam Exam [...] Signed By: 07/26/24 1202 07/26/24 0944 [facility]03-12-2025 Evaluation note* Diagnosis Onset Date Resolution Status Admit Date Squamous cell carcinoma of oropharynx acuteMarch 2024 8:13amCancer associated painacuteMarch 2024 8:22am NauseaacuteMarch 2024 8:22amSquamous cell carcinoma of oropharynxacute July 26, 2024 8:22am [facility] Work Phone: 1(759) 791-630903-12-2025 Evaluation note* Diagnosis Onset Date Resolution Status Admit Date Squamous cell carcinoma of oropharynx acuteMarch 2024 8:13amCancer associated painacuteMarch 2024 8:22am NauseaacuteMarch 2024 8:22amSquamous cell carcinoma of oropharynxacute July 26, 2024 8:22amCancer associated painacuteMarch 2024 7:29am ConstipationacuteMarch 2024 7:29amSquamous cell carcinoma of oropharynx acuteMarch 2024 7:29amThrush, oralacuteMarch 2024 7:29am [facility] Work Phone: 1(360) 749-286603-12-2025 Evaluation note* Diagnosis Onset Date Resolution Status [...] 7:51amSquamous cell carcinoma of oropharynxacuteMarch 2024 9:23am [facility] Work Phone: [phone]) 721-564803-12-2025 Evaluation note* Diagnosis Onset Date Resolution Status [...] 2024 7:59amSquamous cell carcinoma of oropharynxacuteApril 2024 7:59am [facility] Work Phone: [phone]) 594-222803-12-2025 Evaluation note* Diagnosis Onset Date Resolution Status [...] 7:59amFeveracuteApril 2024 7:35pmImmunosuppressionacuteApril 2024 7:35pmPneumoniaacuteApril 2024 7:35pm [facility] Work Phone: [phone]) 379-662603-12-2025 Evaluation note* Diagnosis Onset Date Resolution Status Admit Date Squamous cell carcinoma of oropharynx acuteJuly 26, 2024 8:13amCancer associated painacuteMarch 2024 8:22am NauseaacuteMarch [...] 7:59amNauseaacuteApril 2024 7:59amSquamous cell carcinoma of oropharynxacuteApr2024 7:59amFeveracuteApril 2024 7:35pmImmunosuppressionacuteApril 2024 7:35pmPneumoniaacuteApril 2024 7:35pmSquamous cell carcinoma of oropharynxacuteApr2024 7:35pm [facility] Work Phone: 1(809) 544-308003-12-2025 Evaluation note* Diagnosis Onset Date Resolution Status [...] 9:55amSquamous cell carcinoma of oropharynxacuteApril 2024 9:55am [facility] Work Phone: 1(609) 837-238503-12-2025 Evaluation note* Diagnosis Onset Date Resolution Status [...] of oropharynxacuteMay 2024 2:36pmThrush, oralacuteMay 2024 2:36pm [facility] Work Phone: 1([phone]) 179-149703-05-2025 NoteUTP Cardiovascular Medicine [facility] Patient here for follow-up after his [...] a provider in 3 months. Boy Buitrago APRN-[facility]Un[facility] [place] [address] Cancer Center Note Signed Patient: Jeremie Bennett MR#: [id number] : 1940 Acct:[id number] Age/Sex: 83 / M Type: REG AMB [...] IHC was equivocal. As per the [facility] tumor board recommendation is either doing extensive [...] his week 1 of cisplatin. Labs at [facility] on 07/03/24 revealed hgb 13.3, cr is 1.0. He is having his labs here today.He had his pacemaker placed on 07/10/24 in [place]. 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 He is [...] squamous cell carcinoma. Tumor board at [facility] in [facility] and the recommended concurrent chemoradiation. Past [...] with concurrent chemoradiation. Since he lives in [place] he was referred by Dr. Mary Schneider from ENT at [facility] to our medical oncology and radiation oncology at [facility]. He is referred to medical oncology [...] his week 1 of cisplatin. Labs at [facility] on 07/03/24 revealed hgb 13.3, cr is 1.0. He is having his labs here today.He had his pacemaker placed on 07/10/24 in [place]. Rest of 14 point systems were reviewed [...] PO QAM aspirin 81 mg PO DAILY grhrfik-uszzwmkfqilvd-vmlynpda 250-250-65 mg (Excedrin Migraine) 1 tab PO [...] concerns voiced at time of intake. [facility] Medical History Medical History (Updated [...] Mother Heart disease [facility] of [facility]: Diagnosed with Stroke Hypertension Emphysema lung ESRD (end stage renal disease) Sister [facility]: Diagnosed with Cancer Lymphoma Social [...] DD/ 0837 Signed By: 07/12/24 0920 [facility]02-24-2025 NotePACEMAKER GENERATOR REPLACEMENT PROCEDURE NOTE [...] x 2 weeks Stacey Patel MD Cardiac ElectrophysiologyUnKeenan Private Hospital02-20-2025 Progress note Author Debora Wild [facility] CenterNote Date/TimeFebruary 2024 11:40am [place] [address] Palliative Medicine Encounter Patient: Jeremie Bennett MR#: [id number] : 1940 Acct:[id number] Age/Sex: 83 / M Copies to: RAYSHAWN [...] tablet 81 mg PO DAILY 06/14/24 06/22/24 rzfrmqg-zelslxmsvzrnz-yefphzxw 250 1 tab PO Q4-6H PRN pain [...] (psyllium husk)) Is patient having pain?: No [facility] Medical History (Updated 07/06/24 @ 09:33 by [...] Alcohol Substance Abuse Comment: rare alcohol use [place] Symptom Assessment Scale Pain: intermittent scratchy throat/ [...] mins #about Jeremie: Kaya moved her from [place] 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 Exam Exam General - A&O, [...] recorder, note dictated by Debora Wild APRN, [employer] Dictated By: Debora Wild APRN DD/ 0858 Signed By: <Electronically signed by RAYSHAWN Wild> 07/06/24 [facility]0 [facility] Work Phone: 1(427) 108-647902-20-2025 Progress [place] [id number] Palliative Medicine Encounter Patient: Jeremie Bennett MR#: [id number] : 1940 Acct:[id number] Age/Sex: 83 / M Copies to: RAYSHAWN [...] tablet 81 mg PO DAILY 06/14/24 06/22/24 ccwpmcy-eycqzzilyfugi-enrdtvuz 250 1 tab PO Q4-6H PRN pain [...] 8 mg PO Q8HR PRN nausea and 01/29/25 02/06/25 tablet vomiting #30 tabs prochlorperazine maleate 10 mg 10 mg PO Q8HR PRN nausea and 06/14/24 06/22/24 tablet (Compazine) vomiting #30 tabs fluticasone propionate 50 2 spray intranasal QAM 06/22/24 06/22/24 mcg/actuation nasal spray,suspension psyllium husk 0.4 gram capsule 0.4 g PO DAILY 06/22/24 06/22/24 (Fiber (psyllium husk)) Is patient having pain?: No [facility] Medical History (Updated 07/06/24 @ 09:33 by [...] Alcohol Substance Abuse Comment: rare alcohol use [place] Symptom Assessment Scale Pain: intermittent scratchy throat/ [...] mins #about Jeremie: Kaya moved her from [place] 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, See Instructions furosemide 20 mg Tab, 20 [...] influenza virus vaccine, inactivated 04/12/2023 Recorded SARSCoV2 mRNA(pubodiwau-ebdg-raxrmc) vac 11/25/2021 Recorded SARS-CoV-2 (COVID-19) mRNA BNT-162b2 vax 03/06/2021 Recorded 2022-11-03: TPV80 influenza virus vaccine, inactivated 02/18/2021 Recorded SARS-CoV-2 (COVID-19) mRNA BNT-162b2 vax 06/27/2020 Recorded SARS-CoV-2 (COVID-19) Ad26 vaccine 06/27/2020 Recorded SARS-CoV-2 (COVID-19) mRNA BNT-162b2 vax 06/06/2020 Recorded SARS-CoV-2 (COVID-19) Ad26 vaccine 06/06/2020 Recorded influenza virus vaccine, inactivated 02/14/2020 Recorded influenza, unspecified formulation 01/22/2018 Recorded pneumococcal 13-valent vaccine 01/30/2014 [facility] NoteNurse Consultation Note Reason for [...] PRN, 1 refills fluticasone Nasal 0.05 mg/inh [facility], See Instructions furosemide 20 mg Tab, 20 [...] influenza virus vaccine, inactivated 04/12/2023 Recorded SARSCoV2 mRNA(zjybcyvhn-qoqk-snmkmt) vac 11/25/2021 Recorded SARS-CoV-2 (COVID-19) mRNA BNT-162b2 vax 03/06/2021 Recorded 2022-11-03: TPV80 influenza virus vaccine, inactivated 02/18/2021 Recorded SARS-CoV-2 (COVID-19) mRNA BNT-162b2 vax 06/27/2020 Recorded SARS-CoV-2 (COVID-19) Ad26 vaccine 06/27/2020 Recorded SARS-CoV-2 (COVID-19) mRNA BNT-162b2 vax 06/06/2020 Recorded SARS-CoV-2 (COVID-19) Ad26 vaccine 06/06/2020 Recorded influenza virus vaccine, inactivated 02/14/2020 Recorded influenza, unspecified formulation 01/22/2018 Recorded pneumococcal 13-valent vaccine 01/30/2014 [facility] History of Present illness Narrative* LINWOOD Morgan - 06/23/2024 4:00 PM EST History: Patient was referred for an audiological evaluation. A baseline hearing exam was recommended prior to chemo treatment. Patient sees an ENT at [facility]. Patient is aware of hearing loss, wearing [...] function Impressions: Results to Dr. Faustin at [facility] per patient. documented in this encounterSouthPointe [id number] History of Present illness Narrative* Matteo Bell MD - 06/20/2024 3:15 PM EST Images from the original note were not included. Jeremie Bennett 1940 Jeremie Bennett is a 83 y.o. male presents with chief complaint of Consult (Port - Ref Dr LAMAS Tonguecancer/Having pacemaker generator change on 07-10-24 / [place] cardiology Dr Patel.) HPI: Mr. Bennett is [...] 5 mg, Daily aspirin 81 mg, Daily exkwajyqra-lwngvqhwqbdps-norvntni 50-325-40 MG tablet 1 tablet, Every 4 [...] 2004 ablation OTHER SURGICAL HISTORY 2007 sphincterotomy [place] CHOLECYSTECTOMY 02/2020 Laparoscopic Cholecystectomy - [place] IMPLANT ARTIFICIAL SPHINCTER 2017 PROSTATE 2000 TONSILLECTOMY [...] placed on the right. documented in this encounterSouthPointe [id number] Progress note Author Talib Faustin [facility] CenterNote Date/TimeJanuary 2024 11:06am [facility] [place] [address] Cancer Center Note Signed Patient: Jeremie Bennett MR#: [id number] : 1940 Acct:[id number] Age/Sex: 83 / M Type: REG AMB [...] IHC was equivocal. 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 He is [...] squamous cell carcinoma. Tumor board at [facility] in [facility] and the recommended concurrent chemoradiation. Past [...] with concurrent chemoradiation. Since he lives in [place] he was referred by Dr. Mary Schneider from ENT at [facility] to our medical oncology and radiation oncology at [facility]. He is referred to medical oncology [...] PO DAILY aspirin 81 mg PO DAILY ldjzzol-dhvggzycxewmh-ukuiwepb 250-250-65 mg (Excedrin Migraine) 1 tab PO [...] treatment education bag and all contents including [facility] My cancer treatmentguide, signs and symptoms sheet, yellow fever card, magnet, caregiver resource list, formerly [facility] nutrition guide, and cancer rehabilitation [...] to have pace maker replaced 07/10/2024 at [facility]. [facility] Medical History Medical History (Updated [...] signed by Talib Faustin MD> 06/14/24 1106 [facility] Work Phone: 1([phone]) 131-462901-29-2025 Evaluation note* Diagnosis Onset Date Resolution Status Admit Date Squamous cell carcinoma of oropharynx acuteJanuary 2024 9:25amTongue canceracuteJanuary 2024 9:25am Squamous cell carcinoma of oropharynxacuteJanuary 2024 10:28am [facility] Work Phone: [phone]) 250-350601-29-2025 Evaluation note* Diagnosis Onset Date Resolution Status Admit Date Squamous cell carcinoma of oropharynx acuteJanuary 2024 9:25amTongue canceracuteJanuary 2024 9:25am Squamous cell carcinoma of oropharynxacuteJanuary 2024 10:28amEncounter for palliative careacuteFebruary 2024 8:00amSquamous cell carcinoma of oropharynxacuteFebruary 2024 8:00am [facility] Work Phone: [phone] Evaluation note* Diagnosis Onset Date Resolution Status Admit Date Squamous cell carcinoma of oropharynx acuteJanuary 2024 9:25amTongue canceracuteJanuary 2024 9:25am Squamous cell carcinoma of oropharynxacuteJanuary 2024 10:28amEncounter for palliative careacuteFebruary 2024 8:00amSquamous cell carcinoma of oropharynxacuteFebruary 2024 8:00amCancer associated painacuteFebruary 2024 7:36amNauseaacuteFebruary 2024 7:36amSquamous cell carcinoma of oropharynxacuteFebruary 2024 7:36amSquamous cell carcinoma of oropharynx acuteFebruary 2024 8:29amTongue canceracuteFebruary 2024 8:29am [facility] Work Phone: 1([phone]) 801-364901-29-2025 [facility] [place] [address] Cancer Center Note Signed Patient: Jeremie Bennett MR#: [id number] : 1940 Acct:[id number] Age/Sex: 83 / M Type: REG AMB [...] IHC was equivocal. 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 He is [...] squamous cell carcinoma. Tumor board at [facility] in [facility] and the recommended concurrent chemoradiation. Past [...] with concurrent chemoradiation. Since he lives in [place] he was referred by Dr. Mary Schneider from ENT at [facility] to our medical oncology and radiation oncology at [facility]. He is referred to medical oncology [...] PO DAILY aspirin 81 mg PO DAILY gyrrvbd-wrjvwtggrbjgl-tgrntouz 250-250-65 mg (Excedrin Migraine) 1 tab PO [...] yellow fever card, magnet, caregiver resource list, formerly [facility] nutrition guide, and cancer rehabilitation [...] to have pace maker replaced 07/10/2024 at [facility]. [facility] Medical History Medical History (Updated [...] DD/ 0953 Signed By: 06/14/24 1106 [facility]01-20-2025 Hospital Discharge instructions* Discharge Instructions* [...] questions related to your procedure: Please call [phone] between the hours of 7:00am-5:00pm Wednesday through Wednesday. Please call [phone] after 5:00pm and on weekends and holidays. In the event of an emergency call 911 or go to your nearest emergency room. documented in this encounterZanesville City Hospital Work Phone: 1(953) 935-675001-20-2025 Miscellaneous Notes* Post-Procedure Note - Juan Albright [...] Out: [facility] Pre-procedure Verification completed TIME OUT - Final Verification completed immediately prior to procedure start DEBRIEF completed General Information: Date/Time of Procedure: 06/05/24 at 4:17 PM Indication(s): Hx of SCC, enlarged left cervical chain lymph node Findings: See PACS Procedure performed by: Juan Albright MD Manager Learning(s): Dr. Gaby Perez MD Estimated Blood Loss [...] Albright MD, PGY-6 Interventional Radiology IR pager: [phone] NON-Urgent fire operations forester weekends and after hours weekdays (5pm - 5am) IR pager: [phone] Urgent & emergent fire operations forester weekends and after hours weekdays (5pm-7am) IR pager: [phone] * Pre-Procedure Note - Juan Albright MD [...] by mouth once daily., Disp: , Rfl: oydqapgfyz-vjiamdfywskyv-grfk 50-325-40 mg tablet, Take 1 tablet by [...] been discussed with the patient and/or their hobbies and crafts sales representative. All questions answered and they agree to proceed. Juan Albright MD, PGY-6 Vascular & Interventional Radiology IR pager: [phone] NON-Urgent fire operations forester weekends and after hours weekdays (5pm - 5am) IR pager: [phone] Urgent & emergent fire operations forester weekends and after hours weekdays (5pm-7am) IR pager: [phone] documented in this encounterZanesville City [facility] Work Phone: 1(516) 190-769901-20-2025 Note* Post-Procedure Note - Juan Albright MD [...] and Time Out: Procedure Location procedure area [facility] - Pre-procedure Verification completed TIME OUT - Final Verification completed immediately prior to procedure start DEBRIEF completed General Information: Date/Time of Procedure: 06/05/24 at 4:17 PM Indication(s): Hx of SCC, enlarged left cervical chain lymph node Findings: See PACS Procedure performed by: Juan Albright MD Manager Learning(s): Dr. Gaby Perez MD Estimated Blood Loss [...] Albright MD, PGY-6 Interventional Radiology IR pager: [phone] NON-Urgent fire operations forester weekends and after hours weekdays (5pm - 5am) IR pager: [phone] Urgent & emergent fire operations forester weekends and after hours weekdays (5pm-7am) IR pager: [phone] [facility] Work Phone: 1(946) 424-232001-20-2025 Note* Pre-Procedure Note - Juan Albright MD [...] by mouth once daily., Disp: , Rfl: ulouubsowm-rqiawrzthvuzv-ttwk 50-325-40 mg tablet, Take 1 tablet by [...] been discussed with the patient and/or their hobbies and crafts sales representative. All questions answered and they agree to proceed. Juan Albright MD, PGY-6 Vascular & Interventional Radiology IR pager: [phone] NON-Urgent fire operations forester weekends and after hours weekdays (5pm - 5am) IR pager: [phone] Urgent & emergent fire operations forester weekends and after hours weekdays (5pm-7am) IR pager: [phone] [facility] Work Phone: 1(253) 365-425201-14-2025 History of Present illness Narrative* Mary Schneider MD - 05/30/2024 11:45 AM EST HEAD AND NECK SURGERY FOLLOW UP [facility] Referring Provider: Dr. [...] lymph node Procedure Note: Diagnostic Flexible Laryngoscopy (21722) Indication: patient symptoms requiring evaluation of pharyngeal/laryngeal/hypopharyngeal [...] proceed with concurrent chemoradiation. He lives in [place], referrals to med onc and rad onc placed today to be setup locally at [facility]. I have also reached out to Dr Gray - He will need iris dx testing done prior to starting treatment - I will follow up the biopsy and call him with results - I will see him after treatment for cancer surveillance Mary Schneider MD 24 modifier used due to extensive discussion and coordination of cancer treatment documented in this [facility] Work Phone: 1(676) 287-213212-26-2024 Hospital Discharge instructions* Discharge Instructions* Jessica Carreon [...] to your nearest ED. 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] Procedures Direct Laryngoscopy 74946 - [place] LARYNGOSCOPY W/WO TRACHEOSCOPY DX EXCEPT Bronchoscopy 50551 - [place] [facility] INCL FLUOR GDNCE DX W/CELL WASHG SPX Esophagoscopy 89958 - [place] ESOPHAGOSCOPY FLEXIBLE TRANSORAL DIAGNOSTIC Surgeons Panel 1: * Mary Schneider - Primary Panel 2: * Mary Schneider - Primary Resident/Fellow/Other Manager Learning: Surgeons and Role: Panel 1: * Riana Vela PA-C - Resident - Assisting Staff: Acid Purification Equipment Operator: Jameel Camargo Person: Simon Camargo Person: Reggie Anesthesia Staff: Anesthesiologist: Gabo Munoz MD Leveler: Candice Aceves MD; Delvis Santana MD Procedure [...] scrubbed for the entire procedure. 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] Procedures Direct Laryngoscopy 45143 - [place] LARYNGOSCOPY W/WO TRACHEOSCOPY DX EXCEPT Bronchoscopy 48979 - [place] [facility] INCL FLUOR GDNCE DX W/CELL WASHG SPX Esophagoscopy 20685 - [place] ESOPHAGOSCOPY FLEXIBLE TRANSORAL DIAGNOSTIC Surgeons Panel 1: * Mary Schneider - Primary Panel 2: * Mary Schneider - Primary Resident/Fellow/Other Manager Learning: Surgeons and Role: Panel 1: * Riana Vela PA-C - Resident - Assisting Staff: Acid Purification Equipment Operator: Jameel Camargo Person: Simon Camargo Person: Reggie Anesthesia Staff: Anesthesiologist: Gabo Munoz MD Leveler: Candice Aceves MD; Delvis Santana MD Procedure [...] entire procedure. Mary Schneider documented in this [facility] Work Phone: 1(670) 131-980412-26-2024 History and physical note* Jessica Carreon MD [...] Schneider MD at 05/11/2024 6:34 AM EST [facility] Work Phone: 1([phone]) 875-723712-26-2024 History and physical note* Jessica Carreon MD [...] 05/11/2024 6:34 AM EST [facility] Work Phone: 1(217) 267-621512-24-2024 History of Present illness Narrative* Mary Guevara - 05/09/2024 10:02 AM EST Pharmacy Medication History Review Jeremie Bennett is a 83 y.o. male who is planned to be admitted for Malignant neoplasm of floor of mouth. Pharmacy called the patient prior to their scheduled procedure and reviewed the patient's ekywo-ir-xaalkwljy medications for accuracy. 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 Patient states they are taking #1 tablet of metformin XR 500mg once daily. L.F. 02/24/24 #200/100d (prescription states #1BID) Patient states they are taking #1 tablet of rosuvastatin 10mg daily. L.F. 05/31/23 #90/90d. There is no recent fill history to confirm Mary Guevara [facility] Please reach out via Secure Chat for questions documented in [facility] Work Phone: [phone]) 111-843112-10-2024 NoteUT Electrophysiology Consult Note [place] [facility] - [facility] Reason for visit: Device [...] (ventricular tachycardia) ([facility]) PSH: Past Surgical History: Procedure Laterality Date ABLATION OF DYSRHYTHMIC FOCUS CARDIAC CATHETERIZATION INSERT / REPLACE / REMOVE PACEMAKER SH: Social Determinants of Health Tobacco Use: Medium Risk (05/11/2024) Received from [facility] Patient History Smoking Tobacco Use: Former Smokeless Tobacco Use: Former Passive Exposure: Not on file Alcohol Use: Not on file Financial Resource Strain: Not on file Food Insecurity: Not on file Transportation Needs: Not on file Physical Activity: Not on file Stress: Not on file Social Connections: Not on file Intimate Partner Violence: Unknown (07/08/2023) [place] Safety & Environment Fear of Current or Ex-Partner: Not on file Emotionally Abused: Not on file Physically Abused: Not on file Sexually Abused: Not on file Physically or Sexually Abused: Not on file Depression: Not at risk (04/07/2024) Received from [facility] PHQ-2 Patient Health Questionnaire-2 Score: 0 [...] TSH , T3 TO (more content not included)...[facility]12-02-2024 NotePatient Education Nutrition BMI for Adults [...] for Disease Control and Prevention: cdc.gov ??? [place] [employer]: heart.org ??? National Heart, Lung, and Blood [place]: nhlbi.nih.gov This information is not intended to replace advice given to you by your health care provider. Make sure you discuss any questions you have with your health care provider. Document Revised: 01/21/2023 Document Reviewed: 01/14/2023 [facility] Patient Education ? 2023 [facility] 04-07-2024 History of Present illness Narrative* Mary Schneider MD - 04/07/2024 10:45 AM EST HEAD [facility] NECK [facility] [place] [...] lymph node Procedure Note: Diagnostic Flexible Laryngoscopy (56860) Indication: patient symptoms requiring evaluation of pharyngeal/laryngeal/hypopharyngeal [...] for this, has a pacemaker and seeing air pollution inspector soon. Will follow up biopsy and call him with the results Mary Schneider MD documented in this [facility] Work Phone: [phone]) 656-691411-13-2024 History of Present illness Narrative* Luc Ham MD - 03/29/2024 10:20 AM EST Subjective Patient ID: Jeremie Bennett is a 83 y.o. male who presents for Mouth Lesions (Follow up PET [facility] 03/27/24) Pet scan reviewed and [...] coronary artery ([facility]) 01/20/2019 Arthritis of ankle, right 01/27/2024 Arthritis of carpometacarpal (CMC) joint of left thumb 01/27/2024 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CMS/HCC) 01/27/2024 BMI 29.0-29.9,adult 01/27/2024 Cardiac dysrhythmia 04/03/2022 Ventricular tachycardia ([facility]/HCC) 01/27/2024 Carpal tunnel syndrome, left 01/27/2024 Carpal tunnel syndrome, right 01/27/2024 Cervical lymphadenopathy 01/27/2024 Spondylosis of cervical spine 01/27/2024 Cervical vertebral fusion 04/03/2022 Spondylosis of lumbar spine 01/27/2024 Chronic venous insufficiency 01/27/2024 Colon polyp 01/27/2024 Type 2 diabetes mellitus ([facility]/HCC) 01/27/2024 Type 2 diabetes mellitus without complication, without long-term current use of insulin ([facility]) 04/14/2023 Diabetic autonomic neuropathy associated with type 2 diabetes mellitus ([facility]) 04/14/2023 Diabetic peripheral neuropathy associated with type 2 diabetes mellitus ([facility]) 01/27/2024 Diverticulosis 01/27/2024 Dysphagia 04/14/2023 Essential hypertension (CMS/HCC) 04/03/2022 Excessive daytime sleepiness 01/27/2024 FH: stomach cancer 04/14/2023 Chronic GERD 01/27/2024 GERD with apnea 01/27/2024 Glaucoma (CMS/HCC) 04/03/2022 Hemorrhoids 01/27/2024 History of colon polyps 01/27/2024 History of malignant neoplasm of prostate 04/03/2022 [place] (hard of hearing) 04/03/2022 Hypercholesterolemia (CMS/HCC) 04/03/2022 [...] 2005 ablation OTHER SURGICAL HISTORY 2007 sphincterotomy [place] CHOLECYSTECTOMY 02/2020 Laparoscopic Cholecystectomy - [place] IMPLANT ARTIFICIAL SPHINCTER 2017 PROSTATE 2000 TONSILLECTOMY 1970 Allergies Allergen Reactions Niacin Itching and Unknown Wound Dressing Adhesive Unknown Current Outpatient Medications on File Prior to Visit Medication Sig Dispense Refill amLODIPine (Norvasc) 5 MG tablet Take 5 mg by mouth in the morning. aspirin 81 MG EC tablet Take 81 mg by mouth in the morning. uqtskkgdck-okxcahomyxjzq-tzqgfqhb 50-325-40 MG tablet Take 1 tablet by [...] completed for surveillance exams. documented in this encounterSouthPointe [id number] History of Present illness Narrative* IsachristineJenniferKandi, RT(R) - 03/27/2024 10:00 AM EST RADIOLOGY [...] PATIENT PRESENTS WITH AN IMPLANTABLE OR ATTACHED DESTINATION IMAGINATION COORDINATOR: No CREATININE: No results found for: CREAT [...] 1003 PATIENT DISCHARGED TO: Ambulatory patient, left PA department area. Is this a therapy: No A Diagnostic radioactive procedure has taken place, with no further precautions necessary other than routine body substance precautions. More information regarding radiation safety can be found usingthis link: [email or web address] 20Diagnostic%20Nuclear%20Medicine%[email or web address] SIGNATURE: RT Jennifer(R) PATIENT NAME: Jeremie Bennett DATE: March 27, 2024 TIME: 10:14 AM PAGER/CONTACT #: documented in this encounterUniversity Hospitals Ge[facility]11-11-2024 NoteHNO ID: [id number] Author: KANDI RODRIGUEZ RT (R) Service: ? [...] PATIENT PRESENTS WITH AN IMPLANTABLE OR ATTACHED DESTINATION IMAGINATION COORDINATOR: No CREATININE: No results found for: CREAT [...] safety can be found using this link: [email or web address] 20Diagnostic%20Nuclear%20Medicine%[email or web address] SIGNATURE: RT Jennifer(R) PATIENT NAME: Jeremie Bennett DATE: March 27, 2024 TIME: 10:14 AM PAGER/CONTACT #:[facility]10-23-2024 History of Present illness Narrative* Luc [...] coronary artery ([facility]/HCC) 01/20/2019 Arthritis of ankle, right 01/27/2024 Arthritis [...] History of malignant neoplasm of prostate 04/03/2022 [place] (hard of hearing) 04/03/2022 Hypercholesterolemia (CMS/HCC) 04/03/2022 [...] 2005 ablation OTHER SURGICAL HISTORY 2007 sphincterotomy [place] CHOLECYSTECTOMY 02/2020 Laparoscopic Cholecystectomy - [place] IMPLANT ARTIFICIAL SPHINCTER 2017 PROSTATE 2000 TONSILLECTOMY 1970 Allergies Allergen Reactions Niacin Itching and Unknown Wound Dressing Adhesive Unknown Current Outpatient Medications on File Prior to Visit Medication Sig Dispense Refill amLODIPine (Norvasc) 5 MG tablet Take 5 mg by mouth in the morning. aspirin 81 MG EC tablet Take 81 mg by mouth in the morning. teplrlvwfv-wnaedxugmilht-fwqsbjqh 50-325-40 MG tablet Take 1 tablet by [...] suspicious for the primary documented in this encounterSouthPointe HospitalDihfjfdpgj37-47-8287 Telephone encounter Note* Telephone Encounter - Antoinette Ham - 03/06/2024 11:18 AM EDT Pt is scheduled for 03/08/[address] Ham. SouthPointe [id number] Miscellaneous Notes* Telephone Encounter - Antoinette Ham - 03/06/2024 11:18 AM EDT Pt is scheduled for 03/08/[address] Ham. * Telephone Encounter - Luc Ham MD - 03/06/2024 10:18 AM EDT Move up pt's appt documented in this encounterSouthPointe HospitalAxfpbevgcp11-51-7506 Telephone encounter Note* Telephone Encounter - Luc Ham MD - 03/06/2024 10:18 AM EDT Move up pt's appt [facility] Work Phone: 1(770) 854-694410-02-2024 History of Present illness Narrative* Luc Ham [...] History of malignant neoplasm of prostate 04/03/2022 [place] (hard of hearing) 04/03/2022 Hypercholesterolemia (CMS/HCC) 04/03/2022 [...] 2005 ablation OTHER SURGICAL HISTORY 2007 sphincterotomy [place] CHOLECYSTECTOMY 02/2020 Laparoscopic Cholecystectomy - [place] IMPLANT ARTIFICIAL SPHINCTER 2017 PROSTATE 2000 TONSILLECTOMY 1970 Allergies Allergen Reactions Niacin Itching and Unknown Wound Dressing Adhesive Unknown Current Outpatient Medications on File Prior to Visit Medication Sig Dispense Refill amLODIPine (Norvasc) 5 MG tablet Take 5 mg by mouth in the morning. aspirin 81 MG EC tablet Take 81 mg by mouth in the morning. rkctrfkcmd-isrxkbitvdvog-mmxgfeay 50-325-40 MG tablet Take 1 tablet by [...] a core needle bx documented in this encounterSouthPointe [id number] History of Present illness Narrative* NILAY Morales - 02/16/2024 9:20 AM EDT [facility] Advanced Neurology Jeremie Bennett 1940 Subjective: Vertigo -He denies any recent episodes -denies recent falls -denies any changes 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 with church official Chronic back/neck pain -his neck pain has been about the same since last visit -he denies pain into the arms -he admits a few CORTEZ -he has 3-4 per month -CORTEZ located occipital -he is wanting an abortive medication -he was on Fiorcet and states this helped -Back pain in low back -he is seeing pain management , Dr. Robins in [place] -he is following up with them next [...] Oral, Daily aspirin 81 mg, Oral, Daily hnxaavkemf-pnjvngtoizjik-kaehnnkh 50-325-40 MG tablet 1 tablet, Oral, Every [...] in for biopsies and trtm Prostate cancer ([facility]/HCC) Right flank pain 04/03/2022 Sinus tarsi syndrome of right foot Sleep apnea Toe pain, right Type 2 diabetes mellitus with diabetic neuropathy (CMS/HCC) Ventricular tachycardia ([facility]/HCC) Past Surgical History: Past Surgical History: Procedure Laterality Date CARDIAC CATHETERIZATION 08/30/2019 CATARACT EXTRACTION Bilateral CERVICAL FUSION 2016 C3-C4-C5 CHOLECYSTECTOMY HERNIA REPAIR 2002 INSERT / REPLACE / REMOVE PACEMAKER 2015 pacemaker insertion OTHER SURGICAL HISTORY 2005 ablation OTHER SURGICAL HISTORY 2007 [place]erotomy [place] CHOLECYSTECTOMY 02/2020 Laparoscopic Cholecystectomy - [place] IMPLANT ARTIFICIAL SPHINCTER 2017 PROSTATE 2000 TONSILLECTOMY [...] 2+ 2+ Patellar 2+ 2+ Coordination Right: Tgcgsw-cf-yewv normal.Left: Ppgcfc-cd-yyxq normal. Gait Casual gait is normal including [...] up in 6 months documented in this encounterSouthPointe [id number] Telephone encounter Note* Telephone Encounter - Carlitos Beckman - 02/07/2024 9:29 AM EDT Images from the original note were not included. IPMN surveillance. Review OSH images and advise please [facility] [place] [facility] Pancreatography 11/09/2023 [facility]09-23-2024 Miscellaneous Notes* Telephone Encounter - Carlitos Beckman - 02/07/2024 9:29 AM EDT Images from the original note were not included. IPMN surveillance. Review OSH images and advise please [facility] [place] [facility] Ch[facility] Pancreatography 11/09/2023 * Telephone Encounter [...] and it was completed in 12/2023 at [facility]. Our office will request results for Dr. Pringle's review. Follow up will be determined upon Dr. Pringle's review of results. documented in this encounterUniversity Hospitals Geauga Medical Center09-20-2024 Telephone encounter Note * Telephone Encounter - Carlitos Beckman - 02/04/2024 9:03 AM EDT Surveillance imaging completed at OSH for IPMN surveillance. [facility]09-18-2024 Telephone encounter Note* Telephone Encounter - Carlitos Beckman - 02/02/2024 8:57 AM EDT Call to patient to discuss plan of care. Surveillance imaging needed to evaluate pancreas cyst. Dx: IPMN Per Dr. Vaishali Pringle- recommended repeat MRI in 1 year Last imaging 02/17/2024 Orders placed: MRI Pancreas w/wo IVCON Patient's local GI ordered MRI and it was completed in 12/2023 at [facility]. Our office will request results for Dr. Pringle's review. Follow up will be determined upon Dr. Pringle's review of results. [facility]-17-[facility] History of Present illness Narrative* [...] coronary artery ([facility]) 01/20/2019 Arthritis of ankle, right 01/27/2024 Arthritis of carpometacarpal (CMC) joint of left thumb 01/27/2024 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[facility]) 01/27/2024 BMI 29.0-29.9,adult 01/27/2024 Cardiac dysrhythmia 04/03/2022 Ventricular tachycardia ([facility]) 01/27/2024 Carpal tunnel syndrome, left 01/27/2024 Carpal tunnel syndrome, right 01/27/2024 Cervical lymphadenopathy 01/27/2024 Spondylosis of cervical spine 01/27/2024 Cervical vertebral fusion 04/03/2022 Spondylosis of lumbar spine 01/27/2024 Chronic venous insufficiency 01/27/2024 Colon polyp 01/27/2024 Type 2 diabetes mellitus ([facility]) 01/27/2024 Type 2 diabetes mellitus without complication, without long-term current use of insulin ([facility]) 04/14/2023 Diabetic autonomic neuropathy associated with type 2 diabetes mellitus ([facility]) 04/14/2023 Diabetic peripheral neuropathy associated with type 2 diabetes mellitus ([facility]) 01/27/2024 Diverticulosis 01/27/2024 Dysphagia 04/14/2023 Essential hypertension ([facility]) 04/03/2022 Excessive daytime sleepiness 01/27/2024 FH: stomach cancer 04/14/2023 Chronic GERD 01/27/2024 GERD with apnea 01/27/2024 Glaucoma ([facility]) 04/03/2022 Hemorrhoids 01/27/2024 History of colon polyps 01/27/2024 History of malignant neoplasm of prostate 04/03/2022 [place] (hard of hearing) 04/03/2022 Hypercholesterolemia (CMS/HCC) 04/03/2022 [...] CATARACT EXTRACTION Bilateral CERVICAL FUSION 2015 C3-C4-C5 HERNIA REPAIR 2001 INSERT / REPLACE / REMOVE PACEMAKER 2014 pacemaker insertion OTHER SURGICAL HISTORY 2004 ablation OTHER SURGICAL HISTORY 2006 [place]erotomy [place] CHOLECYSTECTOMY 02/2020 Laparoscopic Cholecystectomy - [place] IMPLANT ARTIFICIAL SPHINCTER 2016 PROSTATE 2000 TONSILLECTOMY 1970 Allergies Allergen Reactions Niacin Itching and Unknown Wound Dressing Adhesive Unknown Current Outpatient Medications on File Prior to Visit Medication Sig Dispense Refill amLODIPine (Norvasc) 5 MG tablet Take 5 mg by mouth in the morning. aspirin 81 MG EC tablet Take 81 mg by mouth in the morning. ogzprmgshu-myobyrxcagzws-owxzrhlw 50-325-40 MG tablet Take 1 tablet by [...] actual location and nature documented in this encounterSouthPointe [id number] Hospital Discharge instructions Patient Education 09/17/2023 09:05:07 [...] provider. Document Revised: 11/11/2020 Document Reviewed: 11/11/2020 [facility] Patient Education 2022 [facility]. Follow Up Care 06/25/2023 12:06:59 With:Sammi CASON, NICOL Mccrary, [facility] Address: [address] [place] [address], [address] [place] [address]- [phone] When:3 months [facility] 01-15-2024 Evaluation note* Encounter [...] months. A prescription was sent to the [facility] for new supplies throughout the year. He [...] sleepiness, or poor response to treatment. . [facility] Other 01-09-2024 Hospital Discharge instructions Patient Education [...] provider. Document Revised: 11/11/2020 Document Reviewed: 11/11/2020 [facility] Patient Education 2022 [facility]. Follow Up Care 02/25/2023 14:06:51 With:Anjali Ruby CNP Address: When:1 month [facility] [phone] Miscellaneous Notes* Telephone Encounter - Lolly Dumont - 04/05/2023 9:44 AM EST Received records from [facility]. Reports for imaging listed below scanned. Images pushed through 09/27/2019 US Right Upper Quad 03/31/2020 CT ABD/PEL US Right Upper Quad Count Includes [facility] MRI Abdomen 02/22/2023 US Soft Tissue Head & Neck Received many misc. labs & ER reports Operative Note & pathology from Laparoscopic Cholecystectomy Patient seen 04/01, please review, thank you! documented in this encounterUniversity Hospitals Geaug[facility]11-16-2023 Nurse Note* Debby Holland MA - 04/01/2023 1:13 PM EST What is the reason for your visit today? Consult for [facility] Who is your referring physician? Anjali Ruby CNP Are you having poor oral intake? NO Have you had unintentional weight loss of 15 lbs/7 Kg in the last 3-6 months? NO Bowels: off and on Wound: Temperature: No Drains: No documented in this encounterUniversity Hospitals Geaug[facility] Center11-16-2023 History of Present illness Narrative* [...] Level: 4 - Moderate documented in this encounterUniversity Hospitals [facility]11-16-2023 NoteHNO ID: [id number] Author: Vaishali Pringle MD Service: ? Author [...] Pringle MD Medical De (more content not included)...[facility]10-25-2023 Hospital Discharge instructions Patient Education 03/10/2023 [...] Follow these instructions at home: Medicines Take rron-rrg-xmefulj and prescription medicines only as told by [...] Watch your condition for any changes. Take qisb-ixc-rauiido and prescription medicines only as told by [...] provider. Document Revised: 06/21/2020 Document Reviewed: 09/11/2019 [employer] Patient Education 2022 Health Diagnostic Laboratory. Follow Up Care 03/09/2023 09:58:32 With:Anjali Ruby CNP Address: When:1 to 2 weeks Comments:Following EGD. [facility] 10-12-2023 Hospital Discharge instructions [...] Follow these instructions at home: Medicines Take mhxh-tpo-auokogq and prescription medicines only as told by your health care provider. If you were prescribed an antibiotic medicine, take it as told by your health care provider. Do notstop taking the antibiotic even if you start to feel better. Eating and drinking Make any diet changes as told by your health care provider. Work with a diet and food and nutrition services assistant (dietitian) to create an eating plan that [...] provider. Document Revised: 12/21/2020 Document Reviewed: 12/21/2020 [employer] Patient Education 2022 Health Diagnostic Laboratory. Follow Up Care 02/22/2023 16:17:47 With:Anjali Ruby CNP Address: When:3 months [facility] 09-15-2023 Evaluation note* Encounter [...] months. A prescription was sent to the [facility] for new supplies throughout the year. He [...] sleepiness, or poor response to treatment. . [place] Other 08-29-2023 Hospital Discharge instructions Patient Education [...] including vitamins, herbs, eye drops, creams, and bsck-apn-rtamkif medicines. Any problems you or family members [...] provider tells you to take them. Taking djjq-kww-tsdzmav medicines, vitamins, herbs, and supplements. General instructions [...] Document Reviewed: 12/24/2021 Else[employer] Patient Education 2022 Health Diagnostic Laboratory. Follow Up Care 12/28/2022 08:53:11 With:Anjali Ruby CNP Address: When:1 to 2 weeks Comments:Following EGD/Colonoscopy. [facility] 05-30-2023 Evaluation note* Encounter [...] sleepiness, or poor response to treatment. . [place] Other 05-09-2023 Hospital Discharge instructions Patient Education [...] managed at home with rest, fluids, and yqhn-pni-ttiloos medicines. Serious symptoms may be treated in [...] water are not available, use alcohol-based hand card seller. Make sure that all people in your [...] managed at home with rest, fluids, and hfks-ymm-uvilagt medicines. This information is not intended to replace advice given to you by your health care provider. Make sure you discuss any questions you have with your health care provider. Document Revised: 04/23/2022 Document Reviewed: 04/23/2022 [employer] Patient Education 2022 Health Diagnostic Laboratory. Follow Up Care 09/22/2022 16:24:11 With:Demetrius Cooper Address: [facility] [place] [address] Business (2) When:09/25/2022 18:12:09 [place]05-09-2023 Evaluation note* Encounter Date Diagnosis Assessment Notes [...] no improvement in 2 to 3 days. [place] Other 04-11-2023 NoteCONSULTATION CONSULTATION DATE: 08/25/2022 TO: [...] our patients to inform us about any sccc-ehe-zgnkvqp medications or herbal remedies/nutritional supplements/alternative remedies. 2. 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 Moderate enthesopathic spurring of the calcaneus. Degenerative changes with bone fragments along the inferior medial malleolus, stable. SOFT TISSUES:Negative. No visible soft tissue swelling. EFFUSION:None visible. OTHER: Negative. IMPRESSION: Stable degenerative changes Electronically authenticated by: ERWIN GARCIA Date: 2022-07-22 10:37[facility] [id number] NotePROCEDURE: XR FOOT RT MIN 3 VIEWS [...] authenticated by: CLARISSA GARCIA Date: 2022-06-16 15:25[facility] [id number] Hospital Discharge instructions Patient Education 05/26/2022 13:46:25 [...] Address: [facility] [address], [place] [address]- Business (1) When: Unknown Comments:Office will call to schedule follow up [place]08-11-2022 NoteCONSULTATION PROCEDURE DATE: 12/25/2021 PRE AND POSTOPERATIVE [...] will be followed up in the clinic.[facility] 12-25-2021 NoteCONSULTATION CONSULTATION DATE: 12/25/2021 This [...] recently seen at an urgent care in [place] for left thumb pain and joint swelling. [...] in three months' time unless otherwise indicated.[facility] [id number] Evaluation note* Encounter Date Diagnosis Assessment Notes [...] will help you get into a specialist. [place] Other Chief complaint+Reason for visit Narrative* Chief Complaint N54.2 Self Referral [facility] Work Phone: Chief complaint+Reason for visit Narrative* Chief Complaint N54.2 Self Referral [id number] m54.12 m54.2 [facility] Work Phone: Chief complaint+Reason for visit Narrative* Chief Complaint N54.2 Self Referral [id number] m54.12 m54.2 isidro, 31-90 [facility] Work Phone: Discharge summary Author Zeke Brennan [facility] CenterNote Date/TimeApril 2024 2:14pm[place] [address] Discharge Summary Signed Patient: Jeremie Bennett MR#: [id number] : 1940 Acct:[id number] Age/Sex: 83 / M Adm Date: 5 Loc: Room: [address] [place] [address]: Zeke Brennan MD Copies to: [...] he was discharged home stable condition the fo llowingday with few more days of oral antimicrobial [...] of Care Document Health Concerns: A [facility] screening has identified you as [...] Strong:Four Ways to Beat the Frailty Risk [email or web address] xl-spypfl-ivwi- yusd-kt-jobt-nio-ozvgusx-nbxp Exam Physical Exam Vital Signs: Temp Pulse [...] % (Auto) 75.8, Lymph % (Auto) 9.0, [place] % (Auto) 13.6, Eos % (Auto) 1.0, Baso % (Auto) 0.6, Nucleat RBC Rel Count 0.1, Neut # (Auto) 4.7, Lymph # (Auto) 0.6 L, [place] # (Auto) 0.8, Eos # (Auto) 0.1, [...] % (Auto) 77.0, Lymph % (Auto) 10.5, [place] % (Auto) 11.3, Eos % (Auto) 0.7, Baso % (Auto) 0.5, Nucleat RBC Rel Count 0.2, Neut # (Auto) 5.7, Lymph # (Auto) 0.8 L, [place] # (Auto) 0.8, Eos # (Auto) 0.1, Baso # (Auto) 0.0, Monocyte Dist Width 23.19 H, ESR 42 H, PT 12.9, INR 1.1, Lactic Acid 0.8, C-Reactive Prot, Quant Cancelled 08/20/24 12:20: PHA Creatinine Clear 58.71, Sodium 136, Potassium 3.7, Chloride 104, Carbon Tjujrpt19.4, Anion Gap 10.3, BUN 16, Creatinine 0.85, Est GFR (CKD- EPI) > 60.0, Glucose 106 H, Calcium 8.4 L, Total Bilirubin 0.6, AST 18, ALT 17, Alkaline Phosphatase 66, C-Reactive Prot, Quant 3.3 H, Total Protein 5.9 L, Albumin 3.4 L, Globulin 2.5, Albumin/Globulin Ratio 1.4 Documented By: Zeke Brennan MD 08/21/24 1407 Signed By: <Electronically signed by Zeke Brennan MD> 08/21/24 1414 [facility] Work Phone: Evaluation + Plan note No data available for this section [place] + [place] note Future Appointments Appointment Date:11/23/2022 09:00:00 AM Scheduled Provider:Demetrius Cooper MD Location:[facility] Future Appointments Appointment Date:12/15/2022 12:00:00 PM Scheduled Provider:Anjali Ruby CNP Location[facility] Appointment Type:[facility] New Patient Appointment Date:05/31/2023 09:00:00 AM Scheduled Provider:Demetrius Cooper MD Location:[facility] Appointment Type: Open Appointment Date:11/08/2023 01:00:00 PM Scheduled Provider: Location:[facility] Appointment Type: Medicare Wellness Subsequent Future Scheduled Tests Laboratory* HgbA1c 11/23/22 * CBC w/ Auto Diff 11/23/22 * Comprehensive Metabolic Panel 11/23/22 * Lipid Panel 11/23/22 [place] + [place] Future Appointments Appointment Date:05/31/2023 09:00:00 AM Scheduled Provider:Demetrius Cooper MD Location:[facility] Appointment Type: Open Appointment Date:11/08/2023 01:00:00 PM Scheduled Provider: Location:[facility] Appointment Type: Medicare Wellness Subsequent Future Scheduled Tests Laboratory* HgbA1c 11/23/22 * CBC w/ Auto Diff 11/23/22 * Comprehensive Metabolic Panel 11/23/22 * Lipid Panel 11/23/22 [place] + [place] note Future Appointments Appointment Date:05/31/2023 09:00:00 AM Scheduled Provider:Demetrius Cooper MD Location:[facility] Appointment Type: Open Appointment Date:11/08/2023 01:00:00 PM Scheduled Provider: Location:[facility] Appointment Type: Medicare Wellness Subsequent Future Scheduled Tests Laboratory* HgbA1c 11/23/22 * CBC w/ Auto Diff 11/23/22 * Comprehensive Metabolic Panel 11/23/22 * Lipid Panel 11/23/22 Radiology* CT Abdomen w/ Contrast 01/12/23 [facility] Evaluation + Plan note Future Appointments Appointment Date:05/03/2023 01:40:00 PM Scheduled Provider:Anjali Ruby CNP Location:[facility] Appointment Type:[facility] Follow Up Appointment Date:05/31/2023 09:00:00 AM Scheduled Provider:Demetrius Cooper MD Location:[facility] Appointment Type: Open Appointment Date:11/08/2023 01:00:00 PM Scheduled Provider: Location:[facility] Appointment Type:FM Medicare Wellness Subsequent Future Scheduled Tests Laboratory* HgbA1c 11/23/22 * CBC w/ Auto Diff 11/23/22 * Comprehensive Metabolic Panel 11/23/22 * Lipid Panel 11/23/22 [facility] evaluation + Plan note Future Appointments Appointment Date:05/03/2023 01:40:00 PM Scheduled Provider:Anjali Ruby CNP Location:[facility] Appointment Type:[facility] Follow Up Appointment Date:05/31/2023 10:00:00 AM Scheduled Provider:Demetrius Cooper MD Location:[facility] Appointment Type: Open Appointment Date:11/08/2023 01:00:00 PM Scheduled Provider: Location:[facility] Appointment Type:FM Medicare Wellness Subsequent Future Scheduled Tests Laboratory* HgbA1c 11/23/22 * CBC w/ Auto Diff 11/23/22 * Comprehensive Metabolic Panel 11/23/22 * Lipid Panel 11/23/22 [facility] Evaluation + Plan note Future Appointments Appointment Date:05/03/2023 01:40:00 PM Scheduled Provider:Anjali Ruby CNP Location:[facility] Appointment Type:[facility] Follow Up Appointment Date:05/31/2023 10:00:00 AM Scheduled Provider:Demetrius Cooper MD Location:[facility] Appointment Type: Open Appointment Date:11/08/2023 01:00:00 PM Scheduled Provider: Location:[facility] Appointment Type:FM Medicare Wellness Subsequent Diagnostic Tests Pending * O & P Exam, Routine 03/10/23 * Giardia lamblia, Direct Detection EIA 03/10/23 Future Scheduled Tests Laboratory* HgbA1c 11/23/22 * CBC w/ Auto Diff 11/23/22 * Comprehensive Metabolic Panel 11/23/22 * Lipid Panel 11/23/22 [place] + [place] Future Appointments Appointment Date:05/31/2023 10:00:00 AM Scheduled Provider:Demetrius Cooper MD Location:[facility] Appointment Type: Open Appointment Date:06/25/2023 01:20:00 PM Scheduled Provider:Anjali Ruby CNP Location:[facility] Appointment Type:[facility] Follow Up Appointment Date:11/08/2023 01:00:00 PM Scheduled Provider: Location:[facility] Appointment Type: Medicare Wellness Subsequent Future Scheduled Tests Laboratory* HgbA1c 11/23/22 * CBC w/ Auto Diff 11/23/22 * Comprehensive Metabolic Panel 11/23/22 * Lipid Panel 11/23/22 [facility] evaluation + Plan note Future Appointments Appointment Date:10/21/2023 03:00:00 PM Scheduled Provider:Inez Henderson MD Location:[facility] Appointment Type:[facility] Follow Up Appointment Date:11/08/2023 01:00:00 PM Scheduled Provider: Location:[facility] Appointment Type:FM Medicare Wellness Subsequent Appointment Date:11/29/2023 10:15:00 AM Scheduled Provider:Demetrius Cooper MD Location:[facility] Appointment Type: Open Future Scheduled Tests Laboratory* U Protein/Creat Ratio 05/31/23 * HgbA1c 11/23/22 * HgbA1c 05/31/23 * Microalbumin Level Urine 05/31/23 * CBC w/ Auto Diff 11/23/22 * Comprehensive Metabolic Panel 11/23/22 * Lipid Panel 11/23/22 [facility] evaluation + Plan note Future Appointments Appointment Date:10/21/2023 03:00:00 PM Scheduled Provider:Inez Henderson MD Location:[facility] Appointment Type:[facility] Follow Up Appointment Date:11/08/2023 01:00:00 PM Scheduled Provider: Location:[facility] Appointment Type:FM Medicare Wellness Subsequent Appointment Date:11/29/2023 10:15:00 AM Scheduled Provider:Demetrius Cooper MD Location:[facility] Appointment Type: Open Diagnostic Tests Pending * Celiac Disease Comprehensive 09/17/23 Future Scheduled Tests Laboratory* U Protein/Creat Ratio 05/31/23 * HgbA1c 11/23/22 * HgbA1c 05/31/23 * Microalbumin Level Urine 05/31/23 * CBC w/ Auto Diff 11/23/22 * Comprehensive Metabolic Panel 11/23/22 * Lipid Panel 11/23/22 [place] + [place] note Future Appointments Appointment Date:11/08/2023 01:00:00 PM Scheduled Provider: Location:[facility] Appointment Type: Medicare Wellness Subsequent Appointment Date:11/29/2023 10:15:00 AM Scheduled Provider:Demetrius Cooper MD Location:[facility] Appointment Type: Open Appointment Date:03/23/2024 02:45:00 PM Scheduled Provider:Inez Henderson MD Location:[facility] Appointment Type:[facility] Follow Up Future Scheduled Tests Laboratory* U Protein/Creat Ratio 05/31/23 * HgbA1c 11/23/22 * HgbA1c 05/31/23 * Microalbumin Level Urine 05/31/23 * CBC w/ Auto Diff 11/23/22 * Comprehensive Metabolic Panel 11/23/22 * Lipid Panel 11/23/22 Radiology* MRI Cholangiogram Pancreatography (mrcp) 10/21/23 [facility] Evaluation + Plan note Future Appointments Appointment Date:11/29/2023 10:15:00 AM Scheduled Provider:Demetrius Cooper MD Location:[facility] Appointment Type: Open Appointment Date:03/23/2024 02:45:00 PM Scheduled Provider:Inez Henderson MD Location:[facility] Appointment Type:[facility] Follow Up Appointment Date:11/06/2024 02:30:00 PM Scheduled Provider: Location:[facility] Appointment Type: Medicare Wellness Subsequent Future Scheduled Tests Laboratory* U Protein/Creat Ratio 11/24/23 * U Protein/Creat Ratio 05/31/23 * HgbA1c 11/30/23 * HgbA1c 11/23/22 * HgbA1c 05/31/23 * Microalbumin Level Urine 11/24/23 * Microalbumin Level Urine 05/31/23 * CBC w/ Auto Diff 11/23/22 * Comprehensive Metabolic Panel 11/23/22 * Lipid Panel 11/08/23 * Lipid Panel 11/23/22 [place] + [place] Future Appointments Appointment Date:04/17/2024 10:00:00 AM Scheduled Provider:Demetrius Cooper MD Location:[facility] Appointment Type: Open Appointment Date:11/06/2024 02:30:00 PM Scheduled Provider: Location:[facility] Appointment Type: Medicare Wellness Subsequent Future Scheduled Tests Laboratory* U Protein/Creat Ratio 11/24/23 * U Protein/Creat Ratio 05/31/23 * HgbA1c 11/30/23 * HgbA1c 05/31/23 * Microalbumin Level Urine 11/24/23 * Microalbumin Level Urine 05/31/23 * Lipid Panel 11/08/23 Radiology* MRI Cholangiogram Pancreatography (mrcp) 03/23/24 [facility] Evaluation + Plan note Future Appointments Appointment Date:11/06/2024 02:30:00 PM Scheduled Provider: Location:[facility] Appointment Type: Medicare Wellness Subsequent Appointment Date:11/06/2024 03:30:00 PM Scheduled Provider:Demetrius Cooper MD Location:[facility] Appointment Type: Open Future Scheduled Tests Laboratory* U Protein/Creat Ratio 11/24/23 * U Protein/Creat Ratio 05/31/23 * HgbA1c 11/30/23 * HgbA1c 05/31/23 * Microalbumin Level Urine 11/24/23 * Microalbumin Level Urine 05/31/23 * Lipid Panel 11/08/23 [place] Evaluation + Plan note Future Appointments Appointment Date:11/21/2024 02:30:00 PM Scheduled Provider: Location:[facility] Appointment Type: Medicare Wellness Subsequent Appointment Date:11/21/2024 03:20:00 PM Scheduled Provider:Demetrius Cooper MD Location:[facility] Appointment Type: Open Diagnostic Tests Pending * Urine Culture 08/30/24 Future Scheduled Tests Laboratory* U Protein/Creat Ratio 11/24/23 * HgbA1c 11/30/23 * Microalbumin Level Urine 11/24/23 * Lipid Panel 11/08/23 [place] Evaluation noteNo Assessments Information Available [facility] noteNo assessment information available [facility] Work Phone: Evaluation note* Diagnosis 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 [facility] Diagnosis 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 documented [facility] encounter [facility]* Diagnosis Onset Date Resolution Status Viral URI with cough noneactiveImpacted cerumen, bilateralnoneactiveCentral sleep apneaacuteDM (diabetes mellitus)acuteEssential hypertensionacuteObstructive sleep apneaacute [facility] Work Phone: Evaluation note* Diagnosis 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 documented [facility]* Diagnosis Migraine without aura and without status migrainosus, not intractable (CMS/HCC)- Primary Vertigo Dizziness and giddiness Lumbar radiculopathy Thoracic or lumbosacral neuritis or radiculitis, unspecified Neck pain Cervicalgia Degenerative disc disease, cervical Polyneuropathy Unspecified hereditary and idiopathic peripheral neuropathy documented in this encounter [facility] HealthcareEvaluation [facility]* Diagnosis LAD (lymphadenopathy) of right cervical region- Primary documented in this encounter [facility] HealthcareEvaluation note* Diagnosis 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 [facility]* Diagnosis Oral ulcer- Primary Other and unspecified diseases of the oral soft tissues 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) documented in this encounter [facility] HealthcareEvaluation note* Diagnosis 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 Ulcer of gingiva documented in this encounter [facility] HealthcareEvaluation note* Diagnosis Malignant neoplasm metastatic [...] mouth, part unspecified documented in this encounter [facility] Work Phone: Evaluation note* Diagnosis Parotid [...] stated as uncontrolled documented in this encounter [facility] Work Phone: Evaluation note* 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 head, face, and neck documented in this encounter [facility] Work Phone: Evaluation note* Diagnosis Enlarged submental lymph node documented in this encounter [facility] Work Phone: Evaluation note* Diagnosis Poor [...] Dysphagia, unspecified type documented in this encounter [facility] Work Phone: Evaluation note* Diagnosis Esophageal [...] oropharynx, unspecified site documented in this encounter [facility] HealthcareEvaluation note* Diagnosis Personal history of malignant neoplasm of head and neck- Primary Personal history of malignant neoplasm of other site G tube feedings (Multi) At risk for malnutrition documented in this encounter [facility] Work Phone: Evaluation note* Diagnosis Esophageal dysphagia- Primary Dysphagia, pharyngoesophageal phase Carcinoma of oropharynx (HCC) Malignant neoplasm of oropharynx, unspecified site documented in this encounter [facility] HealthcareEvaluation note* Diagnosis Esophageal dysphagia- Primary Dysphagia, pharyngoesophageal phase documented in this encounter [facility] HealthcareHistory general Narrative - Reported* Type Description Date Medical History DM (diabetes mellitus) Medical HistoryHTN (hypertension)Medical HistoryHypercholesteremiaMedical HistoryVitamin D deficiency, unspecifiedMedical HistoryCAD (coronary artery disease)Surgical HistoryNeck SurgerySurgical HistorycholecystectomySurgical Historycardiac stentSurgical HistoryprostatectomySurgical Historyhernia Hospitalization Historysee above [place] Other History general Narrative - Reported* Type Description Date Medical History DM (diabetes mellitus) Medical HistoryHTN (hypertension)Medical HistoryHypercholesteremiaMedical HistoryVitamin D deficiency, unspecifiedMedical HistoryCAD (coronary artery disease)Medical HistoryOSAMedical Historyventricular tachycardiaMedical History diabetic neuropathySurgical HistoryNeck SurgerySurgical Historycholecystectomy Surgical Historycardiac stentSurgical HistoryprostatectomySurgical Historyhernia Hospitalization Historysee above [place] Other History of Present illness Narrative* Veena [...] I'll see him PRN [facility] Narrative * Veena Adkins [...] 2005 ablation OTHER SURGICAL HISTORY 2007 sphincterotomy [place] CHOLECYSTECTOMY 02/2020 Laparoscopic Cholecystectomy - [place] IMPLANT ARTIFICIAL SPHINCTER 2017 PROSTATE 2000 TONSILLECTOMY [...] prior to the visit. documented [facility] Discharge instructions No data available for this section [facility] Discharge instructionsAmbulatory Orders* Referral to Palliative Medicine Time Frame: 06/14/24, Location: None Selected * RISE Order Location: None Selected [facility] Work Phone: Progress note No data available for this section [place] Author Talib Faustin [facility] Medical CenterNote Date/TimeJanuary 2024 11:06am [facility] [place] [address] Cancer Center Note Signed Patient: Jeremie Bennett MR#: [id number] : 1940 Acct:[id number] Age/Sex: 83 / M Type: REG AMB [...] IHC was equivocal. 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 He is [...] squamous cell carcinoma. Tumor board at [facility] in [facility] and the recommended concurrent chemoradiation. Past [...] with concurrent chemoradiation. Since he lives in [place] he was referred by Dr. Mary Schneider from ENT at [facility] to our medical oncology and radiation oncology at [facility]. He is referred to medical oncology [...] PO DAILY aspirin 81 mg PO DAILY dmoennu-qjovbjdezbjyg-nwdpkekd 250-250-65 mg (Excedrin Migraine) 1 tab PO [...] yellow fever card, magnet, caregiver resource list, formerly [facility] nutrition guide, and cancer rehabilitation [...] to have pace maker replaced 07/10/2024 at [facility]. [facility] Medical History Medical History (Updated [...] signed by Talib Faustin MD> 06/14/24 1106 [facility] Work Phone: Progress note Author Talib Faustin [facility] CenterNote Date/TimeFebruary 2024 9:20am [facility] [place] [id number] Cancer Center Note Signed Patient: Jeremie Bennett MR#: [id number] : 1940 Acct:[id number] Age/Sex: 83 / M Type: REG AMB [...] IHC was equivocal. As per the [facility] tumor board recommendation is either doing extensive [...] his week 1 of cisplatin. Labs at [facility] on 07/03/24 revealed hgb 13.3, cr is 1.0. He is having his labs here today.He had his pacemaker placed on 07/10/24 in [place]. 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 He is [...] squamous cell carcinoma. Tumor board at [facility] in [facility] and the recommended concurrent chemoradiation. Past [...] with concurrent chemoradiation. Since he lives in [place] he was referred by Dr. Mary Schneider from ENT at [facility] to our medical oncology and radiation oncology at [facility]. He is referred to medical oncology [...] his week 1 of cisplatin. Labs at [facility] on 07/03/24 revealed hgb 13.3, cr is 1.0. He is having his labs here today.He had his pacemaker placed on 07/10/24 in [place]. Rest of 14 point systems were reviewed [...] PO QAM aspirin 81 mg PO DAILY pyjdsgo-pkfocbqfdhhmq-fjdrspia 250-250-65 mg (Excedrin Migraine) 1 tab PO [...] concerns voiced at time of intake. [facility] Medical History Medical History (Updated [...] Mother Heart disease History of stroke [facility] Problem: Diagnosed with Stroke Hypertension Emphysema lung ESRD (end stage renal disease) Sister [facility] Problem: Diagnosed with Cancer Lymphoma Social [...] signed by Talib Faustin MD> 07/12/24 0920 [facility] Work Phone: Progress note Author Zeke Brennan [facility] CenterNote Date/TimeApril 2024 2:[place] [address] Hospitalist Progress Note Signed Patient: Jeremie Bennett MR#: [id number] : 1940 Acct:[id number] Age/Sex: 83 / M Adm Date: 5 Loc: Room: [address] [place] [address] Type: ADM IN Attending Dr: Zeke Brennan [...] care and confirmed it with the re sident/student/[employer]. This patient presented to the emergency department [...] spray 08/21/24 09:00 08/21/24 09:02 Fluticasone Propionate Clifton 120 Clifton/16 Gm Bottle INTRANASAL 08/21/25 08:59 2 spray [...] <Electronically signed by DO KASSY Lambert> 08/21/24 1158 [facility] Work Phone: Progress note Author Talib Faustin [facility] CenterNote Date/TimeJuly 2024 10:26[facility] [place] [address] Cancer Center Note Signed Patient: Jeremie Bennett MR#: [id number] : 1940 Acct:[id number] Age/Sex: 84 / M Type: REG AMB Date of Service: 11/23/24 Copies to: Demetrius Coopre MD~ Assessment & Plan A/P (1) Squamous [...] IHC was equivocal. As per the [facility] tumor board recommendation is either doing extensive [...] his week 1 of cisplatin. Labs at [facility] on 07/03/24 revealed hgb 13.3, cr is 1.0. He is having his labs here today.He had his pacemaker placed on 07/10/24 in [place]. 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 He is [...] squamous cell carcinoma. Tumor board at [facility] in [facility] and the recommended concurrent chemoradiation. Past [...] with concurrent chemoradiation. Since he lives in [place] he was referred by Dr. Mary Schneider from ENT at [facility] to our medical oncology and radiation oncology at [facility]. He is referred to medical oncology [...] his week 1 of cisplatin. Labs at [facility] on 07/03/24 revealed hgb 13.3, cr is 1.0. He is having his labs here today.He had his pacemaker placed on 07/10/24 in [place]. 07/20/2024 he came in complaining of increase [...] concerns voiced at time of intake. [facility] Medical History Medical History Squamous [...] Mother Heart disease [facility] Problem: Diagnosed with Stroke Hypertension Emphysema lung ESRD (end stage renal disease) Sister Cancer [facility] Problem: Diagnosed with Cancer Lymphoma Social [...] signed by Talib Faustin MD> 11/23/24 1026 [facility] Work Phone: Progress note Author Marilia Crouch [facility] CenterNote Date/TimeAugust 2024 1:25pm [facility] [place] [address] Cancer Center Note Signed Patient: Jeremie Bennett MR#: [id number] : 1940 Acct:[id number] Age/Sex: 84 / M Type: DEP AMB [...] G-tube was placed by surgery here at [facility] and patient is hopeful to have [...] Allergy (Unknown, Verified 11/23/24 10:00) hives [facility] Medical History Medical History (Updated [...] ESRD (end stage renal disease) Sister Cancer [facility] Problem: Diagnosed with Cancer Lymphoma Social [...] any of the above?: No Dictated By: Marilia Crouch APRN DD/ 1303 Signed By: <Electronically signed by RAYSHAWN Crouch> 12/26/24 1343 [facility] Work Phone: Refkgw for referral (narrative) Referred by: Flori GARZA, [facility] Reason for referral (narrative)No reason for referral information availableJoint [facility] Work Phone: Rekrbr for visit Narrative* Auth/CertSpecialty Diagnoses / ProceduresReferred By ContactReferred To Contact Diagnoses 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 Johnny NORMAN [address] [place] [address] fax: Referral IDStatusReasonStart DateExpiration DateVisits RequestedVisits [id number] [facility] Work Phone: Regpxl for visit Narrative* Imaging (Routine) - AuthorizedSpecialtyDiagnoses / ProceduresReferred By ContactReferred To ContactRadiology Diagnoses Enlarged submental lymph node Procedures US guided biopsy lymph node superficial [place] [address] [place] [address] Phone: tel: fax: Referral IDStatusReasonStart DateExpiration DateVisits RequestedVisits [id number] Perform Procedure [facility] Work Phone: Summary Purpose Family History [...] RepresentativeExplanationHealthcare Power of Atty 05/11/2024Living Will05/11/2024TypeDate RecordedPatient Merchandise Displayer ExplanationHealthcare Power of Atty107/12/2023Living Will05/11/2024 Advance Directive [...] Admit Date Squamous cell carcinoma of oropharynx [facility] 2024 9:25am Tongue cancer June 14, 2024 9 :25am Squamous cell carcinoma of oropharynx [facility] 2024 10:28am Chief Complaint Admit [...] Admit Date Squamous cell carcinoma of oropharynx [facility] 2024 9:25am Tongue cancer June 14, 2024 9 :25am Squamous cell carcinoma of oropharynx [facility] 2024 10:28am Encounter for palliative care June 182024 8:00am Squamous cell carcinoma of oropharynx [facility] 2024 8:00am Chief Complaint Admit Date NEW-Mal [...] Admit Date Squamous cell carcinoma of oropharynx [facility] 2024 9:25am Tongue cancer June 14, 2024 9 :25am Squamous cell carcinoma of oropharynx [facility] 2024 10:28am Encounter for palliative care June 182024 8:00am Squamous cell carcinoma of oropharynx [facility] 2024 8:00am Cancer associated pain July 12 7:36am Nausea July 12, 2024 7:36am Squamous cell carcinoma of oropharynx [facility] 2024 7:36am Squamous cell carcinoma of oropharynx [facility] 2024 8:29am Tongue cancer July 12, 2024 [...] Admit Date Squamous cell carcinoma of oropharynx [facility] 2024 8:13am Cancer associated pain July 26, 2024 8:22am Nausea July 26, 2024 8:2 2am Squamous cell carcinoma of oropharynx [facility] 2024 8:22am Chief Complaint Admit Date [...] cancer July 17, 2024 10:0 5am Mal Mgiuel base of tongue July 19, 2024 9 [...] Admit Date Squamous cell carcinoma of oropharynx [facility] 2024 8:13am Cancer associated pain July 26, 2024 8:22am Nausea July 26, 2024 8:2 2am Squamous cell carcinoma of oropharynx [facility] 2024 8:22am Cancer associated pain August 02, 2024 7:29am Constipation August 02, 2024 7:2 9am Squamous cell carcinoma of oropharynx [facility] 2024 7:29am Thrush, oral August 02, [...] Admit Date Squamous cell carcinoma of oropharynx [facility] 2024 8:13am Cancer associated pain July 26, 2024 8:22am Nausea July 26, 2024 8:2 2am Squamous cell carcinoma of oropharynx [facility] 2024 8:22am Cancer associated pain August 02, 2024 7:29am Constipation August 02, 2024 7:2 9am Squamous cell carcinoma of oropharynx [facility] 2024 7:29am Thrush, oral August 02, 2024 7:2 9am Cancer associated pain August 09, 2024 7:51am Constipation August 09, 2024 7:5 1am Nausea August 09, 2024 7:5 1am Squamous cell carcinoma of oropharynx [facility] 2024 7:51am Squamous cell carcinoma of oropharynx [facility] 2024 9:23am Chief Complaint Admit Date [...] Admit Date Squamous cell carcinoma of oropharynx [facility] 2024 8:13am Cancer associated pain July 26, 2024 8:22am Nausea July 26, 2024 8:2 2am Squamous cell carcinoma of oropharynx [facility] 2024 8:22am Cancer associated pain August 02, 2024 7:29am Constipation August 02, 2024 7:2 9am Squamous cell carcinoma of oropharynx [facility] 2024 7:29am Thrush, oral August 02, 2024 7:2 9am Cancer associated pain August 09, 2024 7:51am Constipation August 09, 2024 7:5 1am Nausea August 09, 2024 7:5 1am Squamous cell carcinoma of oropharynx [facility] 2024 7:51am Squamous cell carcinoma of oropharynx [facility] 2024 9:23am Cancer associated pain August 16, 2024 7 :59am Constipation August 16, 2024 7:59 am Nausea August 16, 2024 7:59 am Squamous cell carcinoma of oropharynx [facility] 2024 7:59am Chief Complaint Admit Date NEW-Mal [...] Admit Date Squamous cell carcinoma of oropharynx [facility] 2024 8:13am Cancer associated pain July 26, 2024 8:22am Nausea July 26, 2024 8:2 2am Squamous cell carcinoma of oropharynx [facility] 2024 8:22am Cancer associated pain August 02, 2024 7:29am Constipation August 02, 2024 7:2 9am Squamous cell carcinoma of oropharynx [facility] 2024 7:29am Thrush, oral August 02, 2024 7:2 9am Cancer associated pain August 09, 2024 7:51am Constipation August 09, 2024 7:5 1am Nausea August 09, 2024 7:5 1am Squamous cell carcinoma of oropharynx [facility] 2024 7:51am Squamous cell carcinoma of oropharynx [facility] 2024 9:23am Cancer associated pain August [...] Admit Date Squamous cell carcinoma of oropharynx [facility] 2024 8:13am Cancer associated pain July 26, 2024 8:22am Nausea July 26, 2024 8:2 2am Squamous cell carcinoma of oropharynx [facility] 2024 8:22am Cancer associated pain August 02, 2024 7:29am Constipation August 02, 2024 7:2 9am Squamous cell carcinoma of oropharynx [facility] 2024 7:29am Thrush, oral August 02, 2024 7:2 9am Cancer associated pain August 09, 2024 7:51am Constipation August 09, 2024 7:5 1am Nausea August 09, 2024 7:5 1am Squamous cell carcinoma of oropharynx [facility] 2024 7:51am Squamous cell carcinoma of oropharynx [facility] 2024 9:23am Cancer associated pain August 16, 2024 7 :59am Constipation August 16, 2024 7:59 am Nausea August 16, 2024 7:59 am Squamous cell carcinoma of oropharynx [facility]il 2024 7:59am Fever August 20, 2024 [...] Admit Date Squamous cell carcinoma of oropharynx [facility] 2024 8:13am Cancer associated pain July 26, 2024 8:22am Nausea July 26, 2024 8:2 2am Squamous cell carcinoma of oropharynx [facility] 2024 8:22am Cancer associated pain August 02, 2024 7:29am Constipation August 02, 2024 7:2 9am Squamous cell carcinoma of oropharynx [facility] 2024 7:29am Thrush, oral August 02, 2024 7:2 9am Cancer associated pain August 09, 2024 7:51am Constipation August 09, 2024 7:5 1am Nausea August 09, 2024 7:5 1am Squamous cell carcinoma of oropharynx [facility] 2024 7:51am Squamous cell carcinoma of oropharynx [facility] 2024 9:23am Cancer associated pain August [...] tx July 20, 2024 8 :23am Mal Mgiuel base of tongue July 24, 2024 9:00am [...] Admit Date Squamous cell carcinoma of oropharynx [facility] 2024 8:13am Cancer associated pain July 26, 2024 8:22am Nausea July 26, 2024 8:2 2am Squamous cell carcinoma of oropharynx [facility] 2024 8:22am Cancer associated pain August 02, 2024 7:29am Constipation August 02, 2024 7:2 9am Squamous cell carcinoma of oropharynx [facility] 2024 7:29am Thrush, oral August 02, 2024 7:2 9am Cancer associated pain August 09, 2024 7:51am Constipation August 09, 2024 7:5 1am Nausea August 09, 2024 7:5 1am Squamous cell carcinoma of oropharynx [facility] 2024 7:51am Squamous cell carcinoma of oropharynx [facility] 2024 9:23am Cancer associated pain August [...] Med Onc/Rad Onc Follow Up, Review PET ly 2024 10:01am Mal Miguel base of tongue December 26, 2024 1:25pm Reason for Visit Admit Date Cancer associated pain November 23, 2024 7 :46am Squamous cell carcinoma of oropharynx [facility] 2024 7:46am Squamous cell carcinoma of oropharynx [facility] 2024 9:41am Squamous cell carcinoma of oropharynx [facility] 2024 10:01am Squamous cell carcinoma of oropharynx [facility] 2024 12:32pm Chief Complaint Admit Date Follow Up 3 Months, H+N February 22 9:41am Mal Miguel base of tongue February 22, 2025 9:42am Reason for Visit Admit Date Squamous cell carcinoma of oropharynx [facility] 2024 12:32pm Squamous cell carcinoma of oropharynx [...] [place] [address] [place] [address] Referral IDStatusReasonStart DateExpiration DateVisits RequestedVisits [id number] / ProceduresReferred By ContactReferred To ContactMR IMAGING Diagnoses IPMN (intraductal papillary mucinous neoplasm) Procedures MRI 3D POST PROCESSING 3D RENDERING W/INTERP&POSTPROC [place] [address] [facility] [address] [place] [address] Mr Imaging [place] [address] Referral IDStatusReasonStart DateExpiration DateVisits RequestedVisits [id number] Request Auto-Generated Referral [id number] / ProceduresReferred By ContactReferred To Contact IMAGING Diagnoses IPMN (intraductal papillary mucinous neoplasm) Procedures MRI PANC/TRISH WO/W IVCON MRI ABDOMEN W/O & W/[place] [address] [facility] [address] [place] [address] Mr Imaging [place] [address] Referral IDStatusReasonStart DateExpiration DateVisits RequestedVisits [id number] Request Auto-Generated Referral Additional Source Comments (unrecognized [...] and content) DATE CREATED AUTHOR 02/08/2020 [facility] DATE CREATED AUTHOR AUTHOR'S ORGANIZ ATION 09/30/2022 [facility] DATE CREATED AUTHOR AUTHOR'S ORGANIZ ATION 02/04/2023 [facility] DATE CREATED AUTHOR AUTHOR'S ORGANIZ ATION 04/01/2024 [facility] DATE CREATED AUTHOR AUTHOR'S ORGANIZ ATION 04/19/2024 [facility] DATE CREATED AUTHOR AUTHOR'S ORGANIZ ATION 07/05/2024 [facility] DATE CREATED AUTHOR AUTHOR'S ORGANIZ ATION 07/21/2024 [facility] DATE CREATED AUTHOR AUTHOR'S ORGANIZ ATION 07/22/2024 [facility] DATE CREATED AUTHOR AUTHOR'S ORGANIZ ATION 09/03/2024 [facility] DATE CREATED AUTHOR AUTHOR'S ORGANIZ ATION 10/31/2024 [facility] DATE CREATED AUTHOR AUTHOR'S ORGANIZ ATION 12/01/2024 [facility] DATE CREATED AUTHOR AUTHOR'S ORGANIZ ATION 12/27/2024 [facility] DATE CREATED AUTHOR AUTHOR'S ORGANIZ ATION 01/20/2025 [facility] DATE CREATED AUTHOR AUTHOR'S ORGANIZ ATION 02/17/2025 [facility] DATE CREATED AUTHOR AUTHOR'S ORGANIZ ATION 02/25/2025 [facility] DATE CREATED AUTHOR AUTHOR'S ORGANIZ ATION 03/15/2025 [facility] REASON FOR VISIT (unrecogniz ed section and content) ReasonCommentsConsultPEHReasonCommentsReceived Outside Medical RecordsReason CommentsBack PainDizzinessNeck PainReasonCommentsParotid massParotid massReason CommentsMRI AppointmentCare Coordinator - OtherReasonCommentsParotid MassFollow up FNA 02/29/24 TBHReasonCommentsRadiology NMReasonCommentsMouth LesionsFollow up PET [facility] 03/27/24ReasonCommentsNew Patient VisitOral cancer. ReasonCommentsNeck MassUltrasound 01/20/24. Lump right side of neck below ear. Onset about 6 wk agoReasonCommentsPost-opHead and neckReasonCommentsConsultPort - Ref Dr LAMAS Tongue cancerHaving pacemaker generator change on 07-10-24 / [place] cardiology Dr Patel.SpecialtyDiagnoses / ProceduresReferred By ContactReferred To ContactGeneral Surgery Diagnoses Malignant neoplasm of oropharynx, unspecified (CMS/HCC) Procedures [place] UNLISTED [facility]ALUATION [facility] MANAGEMENT SERVICE Dennis Gray MD [address] [place] [address] Phone: tel: fax: Stacey Hinojosa, DO [address] [address] Phone: tel: fax: Referral IDStatusReasonStart DateExpiration DateVisits RequestedVisits [id number] urgent need for gastrostomy uujcXoxpgrZuwtsger5ih pow gastrostomy tube placement ReasonCommentsGastrostomy tube removalSpecialtyDiagnoses / ProceduresReferred By ContactReferred To ContactGeneral Surgery Diagnoses Malignant neoplasm of oropharynx, unspecified (HCC) Procedures [place] UNLISTED [facility]ALUATION AND MANAGEMENT SERVICE Gelacio Paredes MD Phone: tel: fax: Veena Adkins, DO [address] [address] Phone: tel: fax: Referral IDStatusReasonStart DateExpiration DateVisits RequestedVisits [id number]/[id number] of gastrostomy tube Patient Care team informatio n (unrecognized section and content) Team Status: Active Member Role Status Dates Demetrius Cooper MD Primary Care Provider Active Team Status: Inactive Member Role Status Dates Demetrius Cooper MD Primary Care Provider Active Start: June 22, 2024 End: June 22Saúl Curiel ProviderActiveStart: June 22, 2024 End: June 22, 2024 Team Status: Inactive Member Role Status Dates Demetrius Cooper MD Primary Care Provider Active Start: July 03, 2024 End: July 03jerome Melo , MDAttending ProviderActiveStart: July 03, 2024 End: July [...] Care Provider Active Start: July 06, 2024 Kanwal Engletenmonica Provider, Other ProviderActiveStart: July 06, 2024 Team Status: Active Member Role Status Dates Demetrius Cooper MD Primary Care Provider Active Start: July 06, 2024 Mary Schneider MDReferring ProviderActiveStart: July 06, 2024 Dennis Gray MDOther ProviderActiveStart: July 06, 2024 Maribeth Hull , MDAttending ProviderActiveStart: July 06, 2024 Team Status: Active Member Role Status Dates Demetrius Cooper MD Primary Care Provider Active Start: July 10, 2024 Mary Schneider MDReferring ProviderActiveStart: July 10, 2024 Dennis Gray MDAttending Provider, Other ProviderActiveStart: July 10, 2024 Team Status: Inactive Member Role Status Dates Demetrius Cooper MD Primary Care Provider Active Start: July 12, 2024 End: July 12, 2024Stefanie Engle ProviderActiveStart: July 12, 2024 End: July 12, 2024 Team Status: Active Member Role Status Dates Demetrius Cooper MD Primary Care Provider Active Start: July 12, 2024 Stefanie Engle Provider, Other ProviderActiveStart: July 12, 2024 Team Status: Inactive Member Role Status Dates Demetrius Cooper MD Primary Care Provider Active Start: July 12, 2024 End: July 12, 2024Talib Faustin MDAttending ProviderActiveStart: July 12, 2024 End: July 12, 2024 Team Status: Active Member Role Status Dates Demetrius Cooper MD Primary Care Provider Active Start: July 12, 2024 Mary Schneider , MDReferring ProviderActiveStart: July 12, 2024 Dennis Gray MDOther ProviderActiveStart: July 12, 2024 Maribeth Hull , MDAttending ProviderActiveStart: July 12, 2024 Team Status: Active Member Role Status Dates Demetrius Cooper MD Primary Care Provider Active Start: July 17, 2024 Mary Schneider , HUMBERTOeferring ProviderActiveStart: July 17, 2024 Dennis Gray , MYAttending ProviderActiveStart: July 17, 2024 rick Faustin MDOther [...] 2024 End: July 19, 2024Debora Wild , Stefanie ProviderActiveStart: July 19, 2024 End: July 19, 2024 Team Status: Active Member Role Status Dates Demetrius Cooper MD Primary Care Provider Active Start: July 19, 2024 Stefanie Engle Provider, Other ProviderActiveStart: July 19, 2024 Team Status: Active Member Role Status Dates Demetrius Cooper MD Primary Care Provider Active Start: July 19, 2024 Mary Schneider , HUMBERTOeferring ProviderActiveStart: July 19, 2024 Dennis Gray MDActiveStart: July 19, 2024 Chavez Tolliver ProviderActiveStart: [...] Provider Active Start: July 24, 2024 HUMBERTO Harleyefgopaling ProviderActiveStart: July 24, 2024 Dennis Gray , MDActiveStart: July 24, 2024 Chavez Tolliver ProviderActiveStart: July 24, 2024 Luisana Johns MDAttending ProviderActiveStart: July 24, 2024 Team Status: Active Member Role Status Dates Demetrius Cooper MD Primary Care Provider Active Start: July 26, 2024 HUMBERTO Harleyeferring ProviderActiveStart: July 26, 2024 Dennis Gray , MDActiveStart: July 26, 2024 Talib Faustin MDOther ProviderActiveStart: July 26, 2024 Maribeth Hull , [...] July 26, 2024 End: July 26deyanira Ma DOAttsara ProviderActiveStart: July 26, 2024 End: July 26, 2024 Team Status: Active Member Role Status Dates Demetrius Cooper MD Primary Care Provider Active Start: July 26, 2024 Maru Ma DOAttsara Provider, Other ProviderActiveStart: July 26, 2024 Team Status: Active Member Role Status Dates Demetrius Cooper MD Primary Care Provider Active Start: July 31, 2024 Mary Schneider , MDReferring ProviderActiveStart: July 31, 2024 Dennis Gray , MYAttending ProviderActiveStart: July 31, 2024 Talib Faustin MDOther ProviderActiveStart: July 31, 2024 Luisana Adrian Johns , MDActiveStart: July 31, 2024 Team Status: Inactive Member Role Status Dates Demetrius Cooper MD Primary Care Provider Active Start: August 02, 2024 End: August 02jose Galicia DO FELLOWAttending ProviderActiveStart: August 02, 2024 End: August 02, 2024 Team Status: Active Member Role Status Dates Demetrius Cooper MD Primary Care Provider Active Start: August 02, 2024 Mary Schneider MDReferring ProviderActiveStart: August 02, 2024 Dennis Gray MDOther ProviderActiveStart: August 02, 2024 Talib Faustin , MDActiveStart: August 02, 2024 Maribeth Hull , MDAttending ProviderActiveStart: August 02, 2024 [...] 09, 2024 End: August 09, 2024Debora Wild APRNAttending ProviderActiveStart: August 09, 2024 End: August 09, 2024 Team Status: Active Member Role Status Dates Demetrius Cooper MD Primary Care Provider Active Start: August 09, 2024 Mary Schneiedr MDReferring ProviderActiveStart: August 09, 2024 Dennis Gray MDOther ProviderActiveStart: August 09, 2024 Talib Faustin MDActiveStart: August 09, 2024 Soufian Almahameed , MDAttending ProviderActiveStart: August 09, 2024 Team Status: Inactive Member Role Status Dates Demetrius Cooper MD Primary Care Provider Active Start: August 09, 2024 End: August 09, 2024rick Faustin , MDAttending ProviderActiveStart: August 09, 2024 End: August 09, 2024 Team Status: Active Member Role Status Dates Demetrius Cooper MD Primary Care Provider Active Start: August 09, 2024 Debora Wild , LESTERNAtsarita Provider, Other ProviderActiveStart: August 09, 2024 Team Status: Active Member Role Status Dates Demetrius Cooper MD Primary Care Provider Active Start: August 14, 2024 Mary Schneider , MDReferring ProviderActiveStart: August 14, 2024 Dennis Gray , MDAttending ProviderActiveStart: August 14, 2024 rick Faustin MDOther ProviderActiveStart: August 14, 2024 Team Status: Active Member Role Status Dates Demetrius Cooper MD Primary Care Provider Active Start: August 15, 2024 Mary Schneider , MDReferring ProviderActiveStart: August 15, 2024 Dennis Gray , MDActiveStart: August 15, 2024 Chavez Tolliver ProviderActiveStart: August 15, 2024 Soufilashanda Chunged , MDAttending ProviderActiveStart: August 15, 2024 Team Status: Inactive Member Role Status Dates Demetrius Cooper MD Primary Care Provider Active Start: August 16, 2024 End: August 16, 2024Debora Wild , LESTERNAttenmonica ProviderActiveStart: August 16, 2024 End: August 16, 2024 Team Status: Active Member Role Status Dates Demetrius Cooper MD Primary Care Provider Active Start: August 16, 2024 Stefanie Engle Provider, Other ProviderActiveStart: August 16, 2024 Team Status: Active Member Role Status Dates Dennis Gray MD [facility] Provider Active Start: August 17, 2024 Demetrius Cooper [facility] ProviderActiveStart: August 17, 2024 Team Status: Inactive Member Role Status Dates Demetrius Cooper MD Primary Care Provider Active Start: August 20, 2024 End: August 21, 2024Maye Chavez ProviderActiveStart: August 20, 2024 End: August 21, 2024Mogary Nance , MDAdmit ProviderActiveStart: August 20, 2024 End: August 21, 2024Yash Thomas MDOther ProviderActiveStart: August 20, 2024 End: August 21ndSaúl Naylor ProviderActiveStart: August 20, 2024 End: August 21, 2024 Team Status: Active Member Role Status Dates Demetrius Cooper MD Primary Care Provider Active Start: August 21, 2024 Maye Chavez ProviderActiveStart: August 21, 2024 Mohabigail Nance , MDAdmit ProviderActiveStart: August 21, 2024 Saúl Alonso Provider, Other ProviderActiveStart: August 21, 2024 Chavez Fam ProviderActiveStart: August 21, 2024 Team Status: Active Member Role Status Dates Demetrius Cooper MD Primary Care Provider Active Start: August 21, 2024 Mary Schneider , MDReferring ProviderActiveStart: August 21, 2024 Dennis Gray , MDActiveStart: August 21, 2024 Chavez Tolliver ProviderActiveStart: August 21, 2024 Luisana Johns MDAttending ProviderActiveStart: August 21, 2024 Team Status: Active Member Role Status Dates Demetrius Cooper MD Primary Care Provider Active Start: August 21, 2024 Maye Chavez ProviderActiveStart: August 21, 2024 Jaiden Nance , MDAdmit ProviderActiveStart: August 21, 2024 Yash Thomas MDOther ProviderActiveStart: August 21, 2024 Zeke Brennan MDOther ProviderActiveStart: August 21, 2024 Luisana Johns MDAttending ProviderActiveStart: August 21, 2024 Team Status: Inactive Member Role Status Dates Demetrius Cooper MD Primary Care Provider Active Start: August 23, 2024 End: August 23, 2024Saúl Garcia ProviderActiveStart: August 23, 2024 End: August 23, 2024 Team Status: Inactive Member Role Status Dates Demetrius Cooper MD Primary Care Provider Active Start: September 07, 2024 End: September 07, 2024Afshanshi Crouch Jonnamonica ProviderActive Start: September 07, 2024 End: September 07, 2024 Team Status: Active Member Role Status Dates Demetrius Cooper MD Primary Care Provider Active Start: September 07, 2024 HUMBERTO Harleyeferring ProviderActiveStart: September 07, 2024 Dennis Gray MDActiveStart: September 07, 2024 Glynn Tolliverending ProviderActiveStart: September 07, 2024 Team Status: Inactive Member Role Status Dates Demetrius Cooper MD Primary Care Provider Active Start: September 11, 2024 End: September 11, 2024Gisele Brunson NPAttending ProviderActiveStart: September 11, 2024 End: September 11, 2024 Team Status: Inactive Member Role Status Dates Demetrius Cooper MD Primary Care Provider Active Start: September 20, 2024 End: September 20deyanira Hayes MDEmekindred healthcare ProviderActiveStart: September 20, 2024 End: September 20, 2024 Team Status: Active Member Role Status Dates Demetrius Cooper MD Primary Care Provider Active Start: June 20, 2024 HUMBERTO Harleyeferring ProviderActiveStart: June 20, 2024 Dennis Gray MDOther ProviderActiveStart: June 20, 2024 Luisana Johns MDAttending ProviderActiveStart: June 20, 2024 Team Status: Active Member Role Status Dates Demetrius Cooper MD Primary Care Provider Active Start: August 17, 2024 HUMBERTO Harleyeferring ProviderActiveStart: August 17, 2024 Dennis Gray MDAttending ProviderActiveStart: August 17, 2024 Talib Faustin MDOther [...] Care Provider Active Alanna Hardy , DPM MSAttending ProviderActiveLatonya Morales ProviderActive Team Status: Inactive Member Role Status Dates Gisele Brunson [employer] Attending Provider Active Rod Fernandes Care ProviderActive [...] Cooper MD Primary Care Provider Active Tonia Chaevz ProviderActiveTeam MemberRelationship SpecialtyStart DateEnd Date Anjali Ruby CNP [address] [place] [address] [facility]erringIr[facility]03/03/23Team MemberRelationshipSpecialtyStart DateEnd Date Anjali Ruby CNP [address] [place] [address] [facility]03/03/23 Team Status: Inactive Member Role Status Dates Demetrius Cooper MD Primary Care Provider Active Start: July 27, 2023 End: July 26Stefanie Moore ProviderActiveStart: July 27, 2023 End: July 27, 2023 Team Status: Inactive Member Role Status Dates Demetrius Cooper MD Primary Care Provider Active Start: September 02, 2023 End: September 01egjennyfer Brunson NPAttsara ProviderActiveStart: September 02, 2023 End: September 02, 2023Team MemberRelationshipSpecialtyStart DateEnd Date Anjali Ruby CNP [address] [place] [address] [facility]03/03/23Team MemberRelationshipSpecialtyStart DateEnd Date Demetrius Cooper MD [address] [place] [address] PCP - [facility]01/26/24 Clarissa Corado MD [address] [place] [id number] Referring PhysicianNeuroarbor health08/03/23Team MemberRelationshipSpecialtyStart DateEnd Date Demetrius Cooper MD [address] [place] [address] PCP - [facility]01/26/24 Clarissa Corado MD [address] [place] [id number] Referring PhysicianNeurology08/03/23Team MemberRelationshipSpecialtyStart DateEnd Date Demetrius Cooper MD [address] [place] [address] PCP - [facility]01/26/24 Clarissa Corado MD [address] [place] [id number] Referring PhysicianGauroarbor health08/03/23Team MemberRelationshipSpecialtyStart DateEnd Date Anjali Ruby CNP [address] [place] [address] ReferringC[facility] Prxhqqzx66/18/23 Team Status: Inactive Member Role Status Dates Demetrius Cooper MD Primary Care Provider Active Start: February 29, 2024 End: February 29, 2024Hisara Ham Jr, [facility] ProviderActiveStart: February 29, 2024 End: February 29, 2024Team MemberRelationshipSpecialtyStart DateEnd Date Demetrius Cooper MD [address] [place] [address] PCP - [facility]01/26/24 Clarissa Corado MD [address] [place] [address] Referring PhysicianNeurolog08/03/23Team MemberRelationshipSpecialtyStart DateEnd Date Demetrius Cooper MD [address] [place] [phone] PCP - [facility]01/26/24 Clarissa Corado MD [address] [place] [address] Referring PhysicianNeuronorman specialty hospital [facility]08/03/23Team MemberRelationshipSpecialtyStart DateEnd Date Demetrius Cooper MD [address] [place] [phone] PCP - [facility]01/26/24 Clarissa Corado MD [address] [place] [address] Referring PhysicianNemercy [facility]08/03/23Team MemberRelationshipSpecialtyStart DateEnd Date Demetrius Cooper MD [address] [place] [id number] PCP - GeneralFamily Lldqetpq89/11/24 Anjali Ruby CNP [address] [place] [address] ReferringFamily Xfigsrqg64/18/23 Luc Ham MD [address] [facility] [place] [id number] Ent - Gowxqpqxxksjoh85/25/24Team MemberRelationshipSpecialtyStart DateEnd Date Demetrius Cooper MD [address] [place] [address] PCP - GeneralFamily Medicine01/26/24 Clarissa Corado MD [address] [facility] [place] [address] [place] [id number] Referring PhysicianNeurology08/03/23Team MemberRelationshipSpecialtyStart DateEnd Date Demetrius Cooper MD [address] [facility] [place], [facility] PCP - GeneralFamily Szpcrqgs27/26/24Team MemberRelationshipSpecialtyStart Date End Date Demetrius Cooper MD [address] [facility] [place] [address] PCP - GeneralFamily Gjfmphpg30/26/24Team MemberRelationshipSpecialtyStart Date End Date Demetrius Cooper MD [address] [facility] [place] [address] PCP - GeneralFamily Dkxtkosb11/26/24Team MemberRelationshipSpecialtyStart Date End Date Demetrius Cooper MD [address] [facility] [place] [address] [facility] Ecioazzb32/26/24 Team Status: Inactive Member Role Status Dates Demetrius Cooper MD Primary Care Provider Active Start: June 14, 2024 End: June 14, 2024Mhd Yaser Al-Delvin , MDAttending ProviderActiveStart: June 14, 2024 End: June 14, 2024Mary Schneider , MDReferring ProviderActiveStart: June 14, 2024 End: June 14, 2024 Team Status: Active Member Role Status Dates Demetrius Cooper MD Primary Care Provider Active Start: June 14, 2024 Mhd Yaser Al-Marrarhonda , MDAttending ProviderActiveStart: June 14, 2024 Mary Schneider , MDReferring ProviderActiveStart: June 14, 2024 Team Status: Inactive Member Role Status Dates Demetrius Cooper MD Primary Care Provider Active Start: June 14, 2024 End: June 14, 2024Noiván Gray , MDAttending ProviderActiveStart: June 14, 2024 End: June 14, 2024Maalexx Schneider , MDReferring ProviderActiveStart: June 14, 2024 End: June 14, 2024Team MemberRelationshipSpecialtyStart DateEnd Date Demetrius Cooper MD [address] [place] [address] [facility] - [facility] Medicine01/26/24 Clarissa Corado MD [address] [place] [address] Referring PhysicianNeurology08/03/23 Team Status: Active Member Role Status Dates Demetrius Cooper MD Primary Care Provider Active Start: June 20, 2024 HUMBERTO Harleyeferring ProviderActiveStart: June 20, 2024 Dennis Gray MDAttending ProviderActiveStart: June 20, 2024 Team MemberRelationshipSpecialtyStart DateEnd Date Demetrius Cooper MD [address] [place] [address] PCP - [facility] Medicine01/26/24 Clarissa Corado MD [address] [place] [address] Referring PhysicianNeurology08/03/23 Team Status: Active Member Role Status Dates Demetrius Cooper MD Primary Care Provider Active Start: July 06, 2024 HUMEBRTO Harleyeferring ProviderActiveStart: July 06, 2024 Saúl Medina Provider, Other ProviderActiveStart: July 06, 2024 Team Status: Active Member Role Status Dates Demetrius Cooper MD Primary Care Provider Active Start: July 12, 2024 Kanwal Engleteton valley hospitalmonica ProviderActiveStart: July 12, 2024 Team Status: Active Member Role Status Dates Demetrius Cooper MD Primary Care Provider Active Start: July 12, 2024 HUMBERTO Harleyeferring ProviderActiveStart: July 12, 2024 Saúl Medina ProviderActiveStart: July 12, 2024 Talib Faustin MDActiveStart: July 12, 2024 Team Status: Active Member Role Status Dates Demetrius Cooper MD Primary Care Provider Active Start: July 13, 2024 Hue Harleying ProviderActiveStart: July 13, 2024 Saúl Medina ProviderActiveStart: July 13, 2024 Talib Faustin MDOther ProviderActiveStart: July 13, 2024 Team Status: Active Member Role Status Dates Demetrius Cooper MD Primary Care Provider Active Start: July 17, 2024 Mary Schneider , MDReferring ProviderActiveStart: July 17, 2024 Dennis Gray , MDActiveStart: July 17, 2024 Mhd Ramin Faustin , MDAttending ProviderActiveStart: July 17, 2024 Team Status: Active Member Role Status Dates Demetrius Cooper MD Primary Care Provider Active Start: July 20, 2024 Mary Schneider , MDReferring ProviderActiveStart: July 20, 2024 Dennis Gray , MDAttending ProviderActiveStart: July 20, 2024 Talib Faustin MDOther ProviderActiveStart: July 20, 2024 Team Status: Active Member Role Status Dates Dennis Gray MD Attending Provider Active Start: July 20, 2024 IRWIN Fernandesrimarilia Care ProviderActiveStart: July 20, 2024 Team Status: Active Member Role Status Dates Demetrius Cooper MD Primary Care Provider Active Start: July 26, 2024 HUMBERTO Harleyeferring ProviderActiveStart: July 26, 2024 Dennis Gray , MDActiveStart: July 26, 2024 Mhd Ramin Faustin , MDAttending ProviderActiveStart: July 26, 2024 Team Status: Active Member Role Status Dates Demetrius Cooper MD Primary Care Provider Active Start: July 27, 2024 HUMBERTO Harleyeferring ProviderActiveStart: July 27, 2024 Dennis Gray , MDActiveStart: July 27, 2024 Talib Faustin MDOther ProviderActiveStart: July 27, 2024 Luisana Johns MDAttending ProviderActiveStart: July 27, 2024 Team Status: Active Member Role Status Dates Dennis Gray MD Attending Provider Active Start: July 27, 2024 IRWIN Fernandesrimarilia Care ProviderActiveStart: July 27, 2024 Team Status: Active Member Role Status Dates Demetrius Cooper MD Primary Care Provider Active Start: July 24, 2024 HUMBERTO Harleyeferring ProviderActiveStart: July 24, 2024 Dennis Gray , MDAttending ProviderActiveStart: July 24, 2024 Talib Faustin MDOther ProviderActiveStart: July 24, 2024 Team Status: Active Member Role Status Dates Demetrius Cooper MD Primary Care Provider Active Start: August 03, 2024 Mary Schneider , MDReferring ProviderActiveStart: August 03, 2024 Dennis Gray , MDAttending ProviderActiveStart: August 03, 2024 Talib Faustin MDOther ProviderActiveStart: August 03, 2024 Team Status: Active Member Role Status Dates Dennis Gray MD Attending Provider Active Start: August 03, 2024 Demetrius Cooper , MDPrimary Care ProviderActiveStart: August 03, 2024 Team Status: Active Member Role Status Dates Dennis Gray MD Attending Provider Active Start: August 10, 2024 Demetrius Cooper , IRWINrimarilia Care ProviderActiveStart: August 10, 2024 Team Status: Active Member Role Status Dates Demetrius Cooper MD Primary Care Provider Active Start: August 10, 2024 Mary Schneider , MDReferring ProviderActiveStart: August 10, 2024 Dennis Gray , MYAttending ProviderActiveStart: August 10, 2024 Talib Faustin MDOther ProviderActiveStart: August 10, 2024 Team Status: Active Member Role Status Dates Demetrius Cooper MD Primary Care Provider Active Start: August 16, 2024 HUMBERTO Harleyeferring ProviderActiveStart: August 16, 2024 Dennis Gray , MDAttending ProviderActiveStart: August 16, 2024 Mhd Ramin Faustin , MDActiveStart: August 16, 2024 Team Status: Active Member Role Status Dates Demetrius Cooper MD Primary Care Provider Active Start: August 18, 2024 Mary Schneider MDReferring ProviderActiveStart: August 18, 2024 Dennis Gray , MDActiveStart: August 18, 2024 Mhrick Faustin , MDAttending ProviderActiveStart: August 18, 2024 Team Status: Active Member Role Status Dates Demetrius Cooper MD Primary Care Provider Active Start: August 20, 2024 Maye Chavez ProviderActiveStart: August 20, 2024 Iris Thompson Provider, Attending ProviderActiveStart: August 20, 2024 Team MemberRelationshipSpecialtyStart DateEnd Date Demetrius Cooper MD [address] [facility] [place] [address] PCP - GeneralFamily Qfwuafri00/26/24Team MemberRelationshipSpecialtyStart Date End Date Demetrius Cooper MD [address] [place] [phone] [facility] Medicine01/26/24 Clarissa Corado MD Referring PhysicianNeurology08/03/23Team MemberRelationshipSpecialtyStart DateEnd Date Demetrius Cooper MD [address] [place] [phone] PCP - GeneralFami Medicine01/26/24 Clarissa Corado MD Referring PhysicianNeurology08/03/23 Team Status: Active Member Role Status Dates Demetrius Cooper MD Primary Care Provider Active Start: September 25, 2024 Mary Schneider MDReferring ProviderActiveStart: September 25, 2024 Dennis Gray MDActiveStart: September 25, 2024 Talib Faustin MDAttending ProviderActiveStart: September 25, 2024 Team Status: Inactive Member Role Status Dates Demetrius Cooper MD Primary Care Provider Active Start: September 26, 2024 End: September 26, 2024Stefanie Engle ProviderActiveStart: September 26, 2024 End: September 26, 2024Team MemberRelationshipSpecialtyStart DateEnd Date Demetrius Cooper MD [address] [place] [id number] [facility]01/26/24 Clarissa Corado MD Referring PhysicianNeurology08/03/23Team MemberRelationshipSpecialtyStart DateEnd Date Demetrius oCoper MD [address] [place] [address] PCP - [facility] Medicine01/26/24 Clarissa Corado MD Referring PhysicianNeurology08/03/23Team MemberRelationshipSpecialtyStart DateEnd Date Demetrius Cooper MD [address] [place] [address] PCP - [facility] Medicine01/26/24 Clarissa Corado MD Referring PhysicianNeurology08/03/23 Team Status: Inactive Member Role Status Dates Demetrius Cooper MD Primary Care Provider Active Start: October 03, 2024 End: October 03, 2024Frcasey Adkins DOAttsara ProviderActiveStart: October 03, 2024 End: October 03, 2024 Team Status: Active Member Role Status Dates Demetrius Cooper MD Primary Care Provider Active Start: November 23, 2024 Stefanie Engle ProviderActiveStart: November 23, 2024 Team Status: Inactive Member Role Status Dates Demetrius Cooper MD Primary Care Provider Active Start: November 23, 2024 End: November 23, 2024Mhd Yaser Al-Marrarhonda , MDAttending ProviderActiveStart: November 23, 2024 End: November 23, 2024 Team Status: Active Member Role Status Dates Demetrius Cooper MD Primary Care Provider Active Start: November 23, 2024 Samantha Harley ProviderActiveStart: November 23, 2024 Mhd Yaser Al-Marrawi , MDAttending ProviderActiveStart: November 23, 2024 Team Status: Active Member Role Status Dates Demetrius Cooper MD Primary Care Provider Active Start: November 23, 2024 Norleena R Isaac , MDAttending ProviderActiveStart: November 23, 2024 Team Status: Inactive Member Role Status Dates Demetrius Cooper MD Primary Care Provider Active Start: November 23, 2024 End: November 23, 2024Noiván Gray , MDAttending ProviderActiveStart: November 23, 2024 End: November 23, 2024 Team Status: Inactive Member Role Status Dates Demetrius Cooper MD Primary Care Provider Active Start: November 23, 2024 End: November 23, 2024Debora Wild APRNAttenmonica ProviderActiveStart: November 23, 2024 End: November 23, 2024Team MemberRelationshipSpecialtyStart DateEnd Date Demetrius Cooper MD [address] [facility] [place] [address] PCP - [facility]04/11/24 Team Status: Active Member Role Status Dates Demetrius Cooper MD Primary Care Provider Active Start: November 23, 2024 Debora Wild APRNAttenmonica ProviderActiveStart: November 23, 2024 Debora Wild APRNOther ProviderActiveStart: November 23, 2024 Team Status: Inactive Member Role Status Dates Demetrius Cooper MD Primary Care Provider Active Start: December 26, 2024 End: December 26, 2024Marilia Crouch APRNAttenmonica ProviderActive Start: December 26, 2024 End: December 26, 2024 Team Status: Active Member Role Status Dates Demetrius Cooper MD Primary Care Provider Active Start: December 26, 2024 Samantha Harley ProviderActiveStart: December 26, 2024 Talib Faustin MDAttending ProviderActiveStart: December 26, 2024 Team MemberRelationshipSpecialtyStart DateEnd Date Demetrius Cooper MD [address] [place] [address] PCP - [facility]01/26/24 Clarissa Corado MD Referring PhysicianNeurology08/03/23Team MemberRelationshipSpecialtyStart DateEnd Date Demetrius Cooper MD [address] [place] [address] [facility] Clarissa Corado MD Referring PhysicianNeurology08/03/23 Team Status: Inactive Member Role Status Dates Demetrius Cooper MD Primary Care Provider Active Start: February 22, 2025 End: February 22, 2025Stefanie Garnica ProviderActive Start: February 22, 2025 End: February 22, 2025 Team Status: Active Member Role Status Dates Demetrius Cooper MD Primary Care Provider Active Start: February 22, 2025 Hue Harleying ProviderActiveStart: February 22, 2025 Mhd Ramin Lamas-Delvin , MDAttending ProviderActiveStart: February 22, 2025 Team Status: Active Member Role/Relationship Status Tati Cooper MD Primary Care Provider Active Team Status: Inactive Member Role/Relationship Status Tati Cooper MD Primary Care Provider Active Start: December 26, 2024 End: December 26, 2024Stefanie Garnica ProviderActive Start: December 26, 2024 End: December 26, 2024 Team Status: Inactive Member Role/Relationship Status Tati Cooper MD Primary Care Provider Active Start: February 22, 2025 End: February 22, 2025Stefanie Garnica ProviderActive Start: February 22, 2025 End: February 22, 2025 Team Status: Active Member Role/Relationship Status Tati Cooper MD Primary Care Provider Active Start: February 23, 2025 HUMBERTO Harleyefgoplaing ProviderActiveStart: February 23, 2025 Mhd Ramin Lamas-Delvin , MDAttending ProviderActiveStart: February 23, 2025 Team Status: Inactive Member Role/Relationship Status Dates Demetrius Cooper MD Primary Care Provider Active Start: March 08, 2025 End: March 08helio Russell MDAttending ProviderActiveStart: March 08, 2025 End: March 08, 2025Team MemberRelationshipSpecialtyStart DateEnd Date Demetrius Cooper MD PCP - GeneralFamily Medicine01/26/24 Clarissa Corado MD Referring PhysicianNeurology08/03/23 Goals (unrecognized section and content) Goals may be documented in a n alternate section Source Comments (unrecognize d section and content) In the event this informatio n is protected by the Federal Confidentiality of Alcohol and Drug Abuse Patient Records regulations: The Federal rules restrict any use of the information to criminally investigate or prosecute any alcohol or drug abuse patient.[facility] Center[facility] the event this information is protected by the Federal Confidentiality of Alcohol and Drug Abuse Patient Records regulations: The Federal rules restrict any use of the information to criminally investigate or prosecute any alcohol or drug abuse patient.[facility] CenterIn the event this information is protected by the Federal Confidentiality of Alcohol and Drug Abuse Patient Records regulations: The Federal rules restrict any use of the information to criminally investigate or prosecute any alcohol or drug abuse patient.[facility] CenterIn the event this information is protected by the Federal Confidentiality of Alcohol and Drug Abuse Patient Records regulations: The Federal rules restrict any use of the information to criminally investigate or prosecute any alcohol or drug abuse patient.[facility] CenterIn the event this information is protected by the Federal Confidentiality of Alcohol and Drug Abuse Patient Records regulations: The Federal rules restrict any use of the information to criminally investigate or prosecute any alcohol or drug abuse patient.[facility] PRN Active and Recently Administ ered Medications (unrecognized section and content) Medication Order05/09/[id number]//[id number]/ oxymetazoline (Afrin) 0.05 % nasal spray (CANCELED) [...] BE BASED ON THE PRIMARY CLINICAL RECORDS. [facility]. provides no warranty or guarantee of the accuracy or completeness of information in this document.
--- NOTE | 2025-03-22 13:39 | PM.CN ---
Consult Note: HPI Data of Consult Patient: known to practice within the last 3 years Consult date: 03/22/25 Requesting Physician: Alexandra Trevizo NP Primary Care Provider: Owen Sinclair MD Consult Narrative Reason for consult: low back pain Narrative: Jair Bennett a pleasant 84 year old male presents for evaluation and management of low back pain. pain 0/10 aching increasing to 8/10 in the AM, with standing, walking, twisting, lifting, pushing, pulling, activity. denies falls or injury. denies numbness, tingling, weakness, pain in LE. recently underwent lumbosacral xray consistent with multilevel ddd, facet arthropathy, and spondylolisthesis. cannot take NSAIDs on plavix. finds moderate benefit to transdermal therapeutics cream. utilizing zonegran 25mg bid and tizanidine 4mg hs with benefit without side effects. cc:: CC: Alexandra Trevizo NP Review of Systems ROS Musculoskeletal Reports: back pain PFSH PFSH Medical History (Updated 02/22/25 @ 15:25 by Alexandra Trevizo NP) Anemia ?D64.9 - Anemia, unspecified (ICD-10) COVID ?U07.1 - COVID-19 (ICD-10) Vitamin D deficiency ?E55.9 - Vitamin D deficiency, unspecified (ICD-10) Skin cancer ?C44.90 - Unspecified malignant neoplasm of skin, unspecified (ICD-10) NPH (normal pressure hydrocephalus) ?G91.2 - (Idiopathic) normal pressure hydrocephalus (ICD-10) Migraine ?G43.909 - Migraine, unspecified, not intractable, without status migrainosus (ICD-10) Glaucoma ?H40.9 - Unspecified glaucoma (ICD-10) Diverticulosis ?K57.90 - Diverticulosis of intestine, part unspecified, without perforation or abscess without bleeding (ICD-10) Ventricular tachycardia ?I47.20 - Ventricular tachycardia, unspecified (ICD-10) Arthritis ?M19.90 - Unspecified osteoarthritis, unspecified site (ICD-10) Cervical lymphadenopathy ?R59.0 - Localized enlarged lymph nodes (ICD-10) Neck pain ?M54.2 - Cervicalgia (ICD-10) Low back pain ?M54.50 - Low back pain, unspecified (ICD-10) Thrombosis ?I82.90 - Acute embolism and thrombosis of unspecified vein (ICD-10) Weakness ?R53.1 - Weakness (ICD-10) Hiatal hernia ?K44.9 - Diaphragmatic hernia without obstruction or gangrene (ICD-10) Acid reflux ?K21.9 - Gastro-esophageal reflux disease without esophagitis (ICD-10) Diabetes ?E11.9 - Type 2 diabetes mellitus without complications (ICD-10) Prostate cancer ?C61 - Malignant neoplasm of prostate (ICD-10) Sleep apnea ?G47.30 - Sleep apnea, unspecified (ICD-10) Irregular heart beat ?I49.9 - Cardiac arrhythmia, unspecified (ICD-10) High cholesterol ?E78.00 - Pure hypercholesterolemia, unspecified (ICD-10) Hypertension ?I10 - Essential (primary) hypertension (ICD-10) Surgical History History of lymph node biopsy ?Z98.890 - Other specified postprocedural states (ICD-10) History of implantation of artificial sphincter ?Z96.89 - Presence of other specified functional implants (ICD-10) Hx laparoscopic cholecystectomy ?Z90.49 - Acquired absence of other specified parts of digestive tract (ICD-10) History of carpal tunnel release of both wrists ?Z98.890 - Other specified postprocedural states (ICD-10) Pacemaker ?Z95.0 - Presence of cardiac pacemaker (ICD-10) H/O angioplasty ?Z98.62 - Peripheral vascular angioplasty status (ICD-10) H/O vasectomy ?Z98.52 - Vasectomy status (ICD-10) H/O neck surgery ?Z98.890 - Other specified postprocedural states (ICD-10) History of repair of inguinal hernia ?Z98.890 - Other specified postprocedural states (ICD-10) ?Z87.19 - Personal history of other diseases of the digestive system (ICD-10) History of prostatectomy ?Z90.79 - Acquired absence of other genital organ(s) (ICD-10) History of phacoemulsification of cataract of both eyes with intraocular lens implantation ?Z98.41 - Cataract extraction status, right eye (ICD-10) ?Z98.42 - Cataract extraction status, left eye (ICD-10) ?Z96.1 - Presence of intraocular lens (ICD-10) History of cardiac radiofrequency ablation ?Z98.890 - Other specified postprocedural states (ICD-10) History of tonsillectomy ?Z90.89 - Acquired absence of other organs (ICD-10) Social History Smoking status: Former smoker Little interest or pleasure in doing things: not at all Feeling down, depressed, or hopeless: not at all Meds Home Medications and Allergies Home Medications ?Medication ?Instructions ?Recorded ?Confirmed ?Type amlodipine 5 mg tablet 5 mg PO QDAY 10/14/22 03/12/25 History clopidogrel 75 mg tablet (Plavix) 75 mg PO QDAY 10/14/22 03/12/25 History furosemide 20 mg tablet (Lasix) 40 mg PO QDAY 10/14/22 03/12/25 History irbesartan 300 mg tablet (Avapro) 300 mg PO QDAY 10/14/22 03/12/25 History isosorbide mononitrate 30 mg PO QDAY 10/14/22 03/12/25 History latanoprost 0.005 % eye drops 1 drp ophthalmic (eye) QDAY 10/14/22 03/12/25 History loperamide 2 mg capsule 2 mg PO Q2H PRN loose stool 10/14/22 03/12/25 History (Anti-Diarrheal (loperamide)) multivitamin (Daily Multi-Vitamin 1 tab PO QDAY 10/14/22 03/12/25 History tablet) omeprazole 40 mg capsule,delayed 40 mg PO QDAY 10/14/22 03/12/25 History release rosuvastatin 10 mg tablet (Crestor) 10 mg PO QDAY 10/14/22 03/12/25 History sotalol 40 mg PO BID 10/14/22 03/12/25 History tizanidine 4 mg tablet 4 mg PO BEDTIME 10/14/22 03/12/25 History TRANSDERMAL THERAPEUTICS QID PRN pain 09/15/23 History albuterol sulfate 90 mcg/actuation 2 inh inhalation Q8H PRN shortness 09/15/23 03/12/25 History aerosol inhaler of breath or wheezing famotidine 20 mg tablet 20 mg PO DAILY 09/15/23 03/12/25 History metformin 500 mg tablet,extended 500 mg PO DAILY 09/15/23 03/12/25 History release 24 hr psyllium husk 0.4 gram capsule 0.4 g PO DAILY 09/15/23 03/12/25 History (Metamucil) zonisamide 25 mg capsule 25 mg PO BID 09/15/23 03/12/25 History dorzolamide 2 % eye drops 1 drp ophthalmic (eye) TID 02/21/24 03/12/25 History tizanidine 4 mg tablet 4 mg PO TID PRN muscle spasticity 02/22/25 03/12/25 Rx #270 tabs Allergies Allergy/AdvReac Type Severity Reaction Status Date / Time adhesive Allergy Mild Unknown Verified 03/12/25 12:22 niacin (From Nias[place] Allergy Mild itch Verified 03/12/25 12:22 Extended-Release) Exam Constitutional Documenting provider has reviewed patient's vital signs: yes Common normals: no apparent distress, oriented x3, healthy appearing, alert and well nourished General appearance: cooperative HENMT Common normals: normocephalic, hearing grossly normal bilaterally and moist oral mucous membranes Head and scalp: normocephalic Eye Common normals: PERRL Pupil: PERRL Neck & C-Spine Common normals: full ROM General: normal visual inspection Chest Common normals: inspection of chest normal Respiratory Common normals: normal respiratory effort, no retractions and no use of accessory muscles Back & Pelvis Lumbar spine/lower back: ROM limited, pain with ROM, lumbar spinal tenderness Lumbar spinal tenderness location: L2, L3, L4 and L5 and straight leg raise negative bilaterally Sacroiliac joints: SI joints normal Other: negative bilateral shawnee(patricks), gaenslens, thigh thrust, compression test. significant improvement from prior Extremity Common normals: normal to inspection and full ROM Neuro Common normals: oriented x3 Sensorium/orientation: alert Psych Common normals: mental status grossly normal, thought process normal, cooperative, affect normal, speech normal and activity/motor behavior normal Speech: normal speech Thought process: normal thought process Results Additional Findings Additional findings: If on a controlled substance or opioids, I have checked an [place] report on this patient and there are no aberrancies noted in the prescribing history.??If on a controlled substance or opioid a drug screen was completed and reviewed within the last year, and if there has not been a drug screen completed we ordered one today to monitor higher risk, state monitored pain medication use. As part of providing excellent, safe, comprehensive care, the following was completed at our patient's visit: 1. A medication reconciliation and review to ensure accurate knowledge of current/active medications, including asking our patients to inform us about any [id number] medications or herbal remedies/nutritional supplements/alternative remedies. 2. A review to specifically ensure our patients have had annual screening for screening for depression, screening for tobacco use, and screening for unhealthy alcohol use. For concerning screenings had a discussion with the patient, provided patient education, and recommended follow-up with primary care provider when appropriate. If patient noted with a risk of falling, they received education on strength, gait, and balance training to prevent future risk of falling. Portions of this note may have been carried over from the previous visit and updated as appropriate. Please note this office utilizes paper charting in addition to the electronic medical record. A list of current medications, vitals, and PMH is available there as the clinical staff outside of myself do not have access to [employer] charting during the clinic day operations. As part of providing quality comprehensive care the current medications, vitals, and PMH were reviewed in the paper chart. Assessment and Plan Assessment and Plan (1) Lumbar spondylosis: (2) Sacroiliitis: (3) Myalgia, other site: Plan The patient has had over 3 months of moderate to severe low back pain with functional impairment and inadequate response to conservative care including NSAIDS (unless there are contraindication such as concurrent blood thinners), multiple oral or topical pain medications, and home exercise program/physical therapy.? Patient has completed >6 weeks of guided home exercise program and/or formal physical therapy program without relief of their symptoms.? The Oswestry Disability Index was completed, and the patient scored a 30%.? repeat bilateral L2-3 L4-5 facet RFA for facet mediated low back pain under fluoroscopy with 10mg po valium 30-60 minutes prior to procedure. prior right and left L2-3 L4-5 facet RFAs provided at least 50% improvement in pain and functional ability greater than 6 months continue tizanidine 4mg hs prn pain/spasms continue HEP as tolerated continue transdermal therapeutics compound cream to affected areas f/u 1 month after RFA complete
== END 2025-03-22 13:06 | disposition home or self-care (01) ==
LOC: PM 13:05
PROVIDERS: PCP Family Medicine; Visit Provider Nurse Practitioner
DX: M47.816 Spondylosis without myelopathy or radiculopathy, lumbar region (principal); M46.1 Sacroiliitis, not elsewhere classified; M79.18 Myalgia, other site
CPT/HCPCS: G0463

== ENCOUNTER 2025-04-16 07:37 | Day surgery (SDC) | payer MEDICARE, SELFPAY ==
--- OUTSIDE RECORDS SUMMARY | 2024-01-31 08:00 | XMS_ITS ---
Author Organization [facility] in [place] Address [address] [place] [address] Care Team Providers Care Basket Grader Name Role Phone MarekHaris osullivan Primary Care Provider [phone] Susana Momin [phone] REASON FOR VISIT Nail Care 1 year diabetic foot assessment Encounters Encounter Location Date Provider Diagnosis [facility] (PODIATRY) [address] [place] [address] [place] [address] 01/31/2024 Susana Momin Plan Of Treatment Next Appt Details Provider Name:Haris Adrian Sinclair, 10:30:00 AM, [address] [facility], [address], Progress Notes * Jair GROSSDOB:1940 (84 yo M)Acc No.[id number]:01/31/2024 UNLOCKED PROGRESS NOTE Follow Up Patient: Cuate MELISSA, Jair :?NILAY Bangeas-CDOB:1940???Age:83 Y ???Sex:MaleDate:4Phone:[phone]:[address] [place] [address]Pcp:Haris Adrian Treadwell In:12:43 PM ESTCheck Out:01:06 PM EST Subjective: * Chief Complaints: * 1 . Nail Care 1 year diabetic foot assessment. * Medical History: Objective: * Vitals: Assessment: Plan: * Treatment: * * Electronic signature of Susana Momin PA-C on 04/16/2025 at 07:41 AM ESTSign off status: PendingVisit Status:?CANC (Cancelled) * Provider: Rachel Momin PA-C Date: 0 01/31/2024 Generated for Printing/Faxing/eTransmitting on:?04/16/2025 07:41 AM EST
--- OUTSIDE RECORDS SUMMARY | 2024-07-31 08:00 | XMS_ITS ---
Author Organization [facility] in [place] Address [address] [place] [address] Care Team Providers Care Monomer Recovery Supervisor Name Role Phone Haris Sinclair Primary Care Provider Susana Momin [phone] REASON FOR VISIT nail care Encounters Encounter Location Date Provider Diagnosis [facility] (PODIATRY) [address] [place] [address] [place] [address] 07/31/2024 Susana Momin Plan Of Treatment Next Appt Details Provider Name:Haris Sinclair, 10:30:00 AM, [address] [facility] [place], [address], Progress Notes * Jair GROSSDOB:1940 (84 yo M)Acc No.[id number]:07/31/2024 UNLOCKED PROGRESS NOTE Nurse Visit Patient: Cuate MELISSAJair :?JODI BanegasCDOB:1940???Age:83 Y ???Sex:MaleDate:07/31/2024Phone:[phone]:[address] [place] [address] [place], [place]-[id number]:Haris Campbell Yahir Subjective: * Chief Complaints: * 1 . Nail care. * Medical History: Objective: * Vitals: Assessment: Plan: * Treatment: * * Electronic signature of Susana Momin PA-C on 04/16/2025 at 07:41 AM ESTSign off status: PendingVisit Status:?CANC (Cancelled) * Provider: Rachel Momin PA-C Date: 0 07/31/2024 Generated for Printing/Faxing/eTransmitting on:?04/16/2025 07:41 AM EST
--- OUTSIDE RECORDS SUMMARY | 2025-04-03 06:30 | XMS_ITS | Continuity of Care Document ---
Author Organization [facility] Address [address] [place] [address] Phone Care Team Providers Care Hull Drafter Name Role Phone Demetrius Mirza MD Primary Care Provider [phone] Becky Crouch APRN Attending Provider Mary Schneider MD Referring Provider [phone] Talib Faustin MD Attending Provider [phone] Chang Russell MD Attending Provider [phone] Owen Sinclair MD Primary Care Provider Missy Villarreal APRN Attending Provider Care Teams Patient Care Team Team Status: Active Member Role/Relationship Status Dates Owen Sinclair MD Primary Care Provider Active Visit Care Team Team Status: Inactive Member Role/Relationship Status Dates Demetrius Mirza MD Primary Care Provider Active Start: February 22, 2025 End: February 22, 2025Stefanie Garnica ProviderActive Start: February 22, 2025 End: February 22, 2025 Visit Care Team Team Status: Active Member Role/Relationship Status Dates Demetrius Mirza MD Primary Care Provider Active Start: February 23, 2025 Samantha Harley ProviderActiveStart: February 23, 2025 Talib HeAfshanSaúl long ProviderActiveStart: February 23, 2025 Visit Care Team Team Status: Inactive Member Role/Relationship Status Dates Demetrius Mirza MD Primary Care Provider Active Start: March 08, 2025 End: March 08piotrnnamdi Saúl Timmons ProviderActiveStart: March 08, 2025 End: March 08, 2025 Visit Care Team Team Status: Inactive Member Role/Relationship Status Dates Chang Russell MD Attending Provider Active S tart: March 22, 2025 End: March 22, 2025DoRod Weeks Care ProviderActiveStart: March 22, 2025 End: March 22, 2025 Patient Care Team Team Status: Inactive Member Role/Relationship Status Dates Missy Villarreal APRN Attending Provider Active Start: April 03, 2025 End: April 03, 2025DoRod Weeks Care ProviderActiveStart: April 03, 2025 End: April 03, 2025 Chief Complaint and Reason for Visit Chief Complaint Admit Date Follow Up 3 Months, H+N February 22 9:41am Mal Miguel base of tongue February 23 9:51am REF DR. SINCLAIR FOR ABNORMAL CT February 1:20pm R10.11 R93.5 March 22, 2025 3 :14pm 6 Month Follow up *GUZMAN SB TO ND April 03, 2025 10:26am Reason for Visit Admit Date Squamous cell carcinoma of oropharynx Oc tober 2024 9:41am Abnormal CT of the abdomen March 08, 2025 1:20pm Right upper quadrant abdominal pain Octo 2024 1:20pm Allergies, Adverse Reactions, Alerts Allergen Type Severity Reaction Last Updated Verified Status adhesive Allergy Unknown rash April 03, 2025 11:00am Yes Active niacin Allergy Unknown hives April 03, 2025 11:00am Yes Active Social History Smoking Status Status Start Date End Date Date of Observa tion Never smoked tobacco (finding) November 23, 2024 7:50am Observation Status Observation Response Date of Response Legal Sex Male (finding) [facility] 1940 Family History Relationship Condition Age at Onset Recorded Date/T olivia father Unknown GlaucomaUnknownmotherHeart diseaseUnknownDeceasedUnknownHistory of strokeUnknown HypertensionUnknownPulmonary emphysemaUnknownEnd-stage renal diseaseUnknown sisterDeceasedUnknownMalignant neoplasmUnknownLymphomaUnknown Problems Active Problems Problem Diagnosis/Recorded Date Onset Date Status C omments Right upper quadrant abdomin al pain March 08, 2025 1:07pm Unknown Active Squamous cell carcinoma of oropharynxJanuary 2024 3:58pmUnknownActive Hypnotic dependenceMarch 2023 9:30amUnknownActiveObstructive sleep apnea July 27, 2023 9:30amUnknownActiveOther acute postprocedural painMarch 2024 1:59pmUnknownActiveDiabetic neuropathyMarch 2023 9:30amUnknownActive Thrush, oralMarch 2024 8:24amUnknownActiveDM (diabetes mellitus)July 27, 2023 9:30amUnknownActiveCentral sleep apneaApril 2023 12:19pmUnknown ActiveCAD (coronary artery disease)July 27, 2023 9:30amUnknownActiveCoronary artery diseaseMarch 2023 9:30amUnknownActiveHypercholesteremiaMarch 2023 9:30amUnknownActiveCancer associated painFebruary 2024 9:00amUnknown ActiveVentricular tachycardiaMarch 2023 9:30amUnknownActiveEssential hypertensionMarch 2023 9:30amUnknownActivePolyneuropathy associated with underlying diseaseMarch 2023 9:30amUnknownActiveAbnormal CT of the abdomen March 08, 2025 1:07pmUnknownActiveEncounter for palliative careFebruary 2024 9:00amUnknownActiveNauseaFebruary 2024 9:31amUnknownActive NauseaMarch 2024 8:37amUnknownActiveConstipationMarch 19th, 2025 8:17am UnknownActiveSecondary to opioids, and decreased oral intakeVitamin D deficiency, unspecifiedMarch 2023 9:30amUnknownActiveExcessive daytime sleepinessMarch 2023 9:30amUnknownActiveInactive/Resolved Problems Problem Diagnosis/Recorded Date Onset Date Status C omments Immunosuppression August 20, 2024 6:54pm Unknown Resolv ed FeverApril 2024 6:54pmUnknownResolvedLung noduleMay 2024 7:09pmUnknown ResolvedPneumoniaApril 2024 6:54pmUnknownResolvedConstipationMay 2024 6:49pmUnknownResolved Medications Medication Status Dose Units Route Directions Qty Days Refills S tart Date Stop Date End Date Reason(s) Instructions Adherence Magic Mouthwash W/Lidocaine 240 Ml Bottle 240 mL bottle Discontinued 10 ML PO Four times daily as needed for mucositis 240 0February 2024 12:00amApril 2024 9:15amSquamous cell carcinoma of oropharynx Malignant neoplasm of oropharynx, unspecifiedTake 10ml by mouth, four times a day, as needed. SWISH AND SWALLOW.Magic Mouthwash W/Lidocaine 240 Ml Bottle 240 mL uklohgUnnxzdjgmtku10GZRGDuid times daily as needed for nilngmakn4421Bievi 2024 12:00amApril 2024 5:07pmSquamous cell carcinoma of oropharynx Malignant neoplasm of oropharynx, unspecifiedTake 10ml by mouth, four times a day as needed. 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 Sennosides (Black-Draught Lax-Senna) 8.6 mg tabletDiscontinued8.6MGPOTwice daily as needed for bsavoatymueh69168Msvcs 2024 11:00pmJuly 2024 9:02am Constipation Constipation, unspecifiedUse if no bowel movement dailyClotrimazole 10 mg joyce Lxfneybfbzgp86HEUUIQQW MEMFive times inynq16153Bpkly 2024 11:00pmApril 2024 10:32amCandidiasis of mouth Candidal stomatitis thrushuse for 10 days, if symptoms persist, then complete the 14 days dispensed Oxycodone 5 mg/5 mL uiuhiwtzVcigzgihcisr9DZZLQBMXF 4-6 HOURS as needed for pain 283617Bwxnb pr2024 8:47amNeoplasm related pain 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) Malignant neoplasm of oropharynx, unspecifiedNystatin 500,000 unit tablet Hnijhcnqunwq578011QCMXACRwzy times qftyw31295Yzuqq 2nd, 2025 11:00pmMay 2024 8:27amSilver Sulfadiazine (Silvadene) 1 % yxjyrRyeppejvhska3JRGHMJLFEFGXY Twice bocap832Jfzti 3rd, 2025 11:00pmMay 2024 9:25amSquamous cell carcinoma of oropharynx Malignant neoplasm of oropharynx, unspecifiedApply to open areas on radiation site, twice a day, until healed.Sucralfate 100 mg/mL frohdolnpiVhojppztpocb22BH POThree times omgyi099717Zkodg 2024 11:00pmMay 2024 9:26amNystatin 500,000 unit rdqkegChbyihdjxmoy865231LWMXBYThuk times rwycw00147Amd 2024 8:24amJuly 2024 9:01amOxycodone 5 mg/5 mL oyloboniUsqurvveglvk46GZBKXddko 4 hours as needed for sldo159525Bxv 2024July 2024 9:01amNeoplasm related pain 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) Malignant neoplasm of oropharynx, unspecifiedTizanidine 4 mg wuxivyMsvwls4LF Every egdzuus94091Dzvv 2024 10:33am1/2-1 tablet orally every evening; Complies with drug therapyFluticasone Propionate 50 mcg/actuation spray,gfkhykskivAezvgg2IMWIFQVBGYHWQWDKycdz morningFebruary 2024 12:00am FreeTextSig: Nasal; Note: Source Status: Taking; Qty: 16 Unspecified; Provider: Boy Jaquez ( )Complies with drug therapyPsyllium Husk (Fiber (Psyllium Husk)) 0.4 gram capsuleDiscontinued0.4GMPODailyFebruary 2024 12:00amApril 2024 5:08pmOxycodone 5 mg/5 mL sqloraypEiuitpgvuznc6BSPHIAIFA 4-6 HOURS as needed for djoz398759Ybgsm 2024March 2024 10:31am Neoplasm related pain 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) Malignant neoplasm of oropharynx, unspecifiedHydrocodone-Acetaminophen 5-325 mg kxxuvlGmeppictlqwj6YEPQUMvvjc 12 hours as needed for osbu987Mptsi 2024March 2024 8:43amOther acute postprocedural pain Other acute postprocedural painOxycodone 5 mg/5 mL bicnzycrJvuravjkcvbf79LWIS Every 4 hours as needed for yjfc962785Upvwx 2024May 2024 2:02pm Neoplasm related pain 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) Malignant neoplasm of oropharynx, unspecifiedFentanyl 12 mcg/hr patch 72 hour Zvostujdeibz6WKVBUEEGLYIMARSIyflf 72 lgtgg2209Ozmvy pril 2024 9:11am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, unspecified Malignant neoplasm of oropharynx, unspecifiedCefpodoxime 200 mg tablet Wztwkhmfcifd972UXGVCzhgk tfcgk247Urrev 2024 11:00pmMay 2024 9:22am must administer with a meal/foodPolyethylene Glycol 3350 (Miralax) 17 gram/dose pfspgjKvyxsb86MIOSAxnef0721Itu 2024 11:00pmComplies with drug therapy Lidocaine-Prilocaine 2.5-2.5 % sqmixUygieuwgsqxj3ZZSXXVFXQVgcu as needed for twub354Rkkigsqg 2024 1:08pmMay 2024 9:23amApply 1 hour prior to accessing port.Olanzapine 2.5 mg tabletDiscontinued2.5MGPOTwice wnury515Jfksg 2024 11:00pmJuly 2024 9:02amAlbuterol Sulfate 90 mcg/actuation aerosol powdr breath nuvmbhbeqPnhpsflmtipg2RRRIICGNOCKJCUHIRG 4-6 HOURS as needed for shortness of breath or wheezingJanuary 2024 12:00amMay 2024 9:38irTlncoqg-Rjtndduprvlmy-Gyfczkia (Excedrin Migraine) 250-250-65 mg ahmqpmRovutgaazjnt5BXKHYZCHEE 4-6 HOURS as needed for painJanuary 2024 12:00amApril 2024 5:05pmMetformin 500 mg enfqbgYghsnv972BJPSObuvr morning June 14, 2024 12:00amComplies with drug therapyOmeprazole 40 mg capsule,delayed release(DR/EC)Fzxhbl02JWQSDukpm morningJanuary 2024 12:00amComplies with drug therapyMultivitamin (Multiple Vitamins) tabletActive1 TABPODailyJanuary 2024 12:00amComplies with drug therapyAspirin 81 mg tablet,nldcdcbsKijpmq08GOZRBupduOxpantw 2024 12:00amComplies with drug therapyDiphenhydramine-Acetaminophen (Tylenol Pm Extra Strength) 25-500 mg getreiLdyvudthxkee2DHNUOUspzz at bedtime as needed for sleepJanuary 2024 12:00amApril 2024 5:05pmProchlorperazine Maleate (Compazine) 10 mg tablet Nmcljidmmvfl47AZLDRjdlc 8 hours as needed for nausea and kmgytqxz089Vkyiwky 2024 12:00amMarch 2024 8:43amOndansetron 8 mg tablet,disintegrating Raficz2HGMAElxfn 8 hours as needed for nausea and tnanodxu894Nwqwoek 2024 12:00amComplies with drug therapyDoxycycline Monohydrate 100 mg capsule Huowqsgmjisj888YVNWOwpkv dailyFebruary 2024 12:00amApril 2024 5:05pm Zonisamide 50 mg igdrbaiIkneqg57RRSGXiphw fuovp043Ojaywwjq 2024 12:00am Complies with drug therapyFerrous Sulfate (Ferosul) 325 mg (65 mg iron) tablet Lqmwwr913WDGRQddlo dailyOctober 2024 11:00pmComplies with drug therapy Dorzolamide 2 % uyguuKlpqiz2STEOEQCJUHVMVZCLlznt dailyMarch 2023 11:00pm Complies with drug therapyLatanoprost 0.005 % tjvvmCmveoh7MWTXVGHZFGYCBJREnkga eveningMarch 2023 11:00pmComplies with drug therapyFurosemide 20 mg tablet Idpqsu31SIUUZfhzx morningMarch 2023 11:00pmComplies with drug therapy Famotidine 20 mg wcalrwRrapzuxtrmmj77TFWKYhyin eveningMarch 2023 11:00pm March 08, 2025 12:48pmTizanidine 4 mg gxvscxIoyqrblxkurf9SBBGWantb evening July 26, 2023 11:00pmJuly 2024 10:34amIsosorbide Mononitrate 30 mg tablet extended release 24 duXzynlqnlfwih32SGDRUcetg morningMar 2023 11:[facility]pm[facility] 20[facility] 7:42amRosuvastatin 10 mg cedgqjWddpsd42UOQMLksui evening July 26, 2023 11:00pmComplies with drug therapyAmlodipine 5 mg tabletActive5 MGPOEvery morningOhiohealth O[facility] 2023 11:00pmComplies with drug therapyClopidogrel 75 mg xqudfcZqipea09FSUVIzoldUlpnp 2023 11:00pmOn Hold: Resume on 10/04/24.Complies with drug therapyZonisamide 25 mg jiqlmyyAugitg56KTHMNknai dailyOhiohealth O'Blen[facility] 2023 11:00pmComplies with drug therapyIrbesartan 300 mg tablet Cfebkg123LCEFLjgfy morningOhiohealth O'[facility] 2023 11:00pmComplies with drug therapy Sotalol 80 mg ipnbepBviuzd24POZYYhxpg dailyOhiohealth O[facility] 2023 11:00pmComplies with drug therapyMometasone 0.1 % ixcvcEzfuvxhpbodv0EQLRIDSUZDGKPMlyzs426Pnktnkm 2024 12:00amApril 2024 5:07pmSquamous cell carcinoma of oropharynx Malignant neoplasm of oropharynx, unspecifiedApply to radiation site, once a day, AFTER radiation treatments.Amlodipine 5 mg fssiqkLztpfvhmkrnb7STMVCqbsf [facility] 2024 12:00amMarch 2024 7:39amClopidogrel (Plavix) 75 mg tablet Bkggztmkcrxm29IWIBFyqtwKshxq 2024 12:00amMarch 2024 7:40amDorzolamide 2 % rpugyFpzrprotkjvb2KSFOWVSZ-HJJUMvlvx times dailyOhiohealth O[facility] 2024 12:00amMarch 2024 7:40amFamotidine 20 mg twnhgjMtvtephovxna08JEGOQhucbPkvsv 2024 12:00amMarch 2024 7:41amFurosemide 20 mg kjbtptSzbikhadmftf60FNLLFuphu morningOhiohealth O'[facility] 2024 12:00amMarch 2024 7:41amIrbesartan 300 mg tablet Gyottcusqgnx566RKHLZqmzj morningOhiohealth O[facility] 2024 12:00amMarch 2024 7:41am Isosorbide Mononitrate 30 mg tablet extended release 24 xzLzdbcr49TBADQhfxq morningOhiohealth O[facility] 2024 12:00amComplies with drug therapyLatanoprost 0.005 % mrysiZfrhudzqgaew4BJXNVLLS-PXGGVtnvn eveningMarch 2024 12:00amMarch 2024 7:42amRosuvastatin 10 mg apagzaDojvifvmsmtg90SUCLHfyfx eveningMarch 2024 12:00amMarch 2024 7:44amSotalol 80 mg cicggwDdqwlajjcyfa64OWNZBcsau dailyMarch 2024 12:00amMarch 2024 7:44amTizanidine 4 mg capsule Cusqepocvowx9GHZTGxtvx evening as neededMarch 2024 12:00amMarch 2024 7:45amZonisamide 25 mg mwltbgsPyvfqpsphhtv15TNDJHawac dailyMarch 2024 12:00amMarch 2024 7:45amAlbuterol Sulfate 90 mcg/actuation aerosol powdr breath csepcsczoLxpgppdyajdp2WDYCZEDTLLOHCPZPYB 4-6 HOURS as neededMarch 2024 12:00amMarch 2024 7:39amAspirin 81 mg tablet,bidmdmwxOclofyknvetr71VM PODailyMarch 2024 12:00amMarc2024 7:39am Jrvicdb-Kcbduoddblimg-Dfajxefl (Excedrin Migraine) 250-250-65 mg tablet Xkokkepzlxjx4LXOYTIGERE 4-6 HOURS as neededMarch 2024 12:00amMarc2024 7:40amDiphenhydramine-Acetaminophen (Tylenol Pm Extra Strength) 25-500 mg onbdnzPckrcwdiqibi3WCNUUEgyiy at bedtime as neededMarch 2024 12:00amMarch 2024 7:40amMetformin 500 mg xkejvzVxthrwedkfvx542ADQEMfghn morningMarch 2024 12:00amMarch 2024 7:43amMometasone 0.1 % creamDiscontinued1 APPLICTOPICALDailyMar 2024 12:00amMarc2024 7:43amMultivitamin (One Daily Multivitamin) lhosrpXmklapeqdrvl9BXCEFYsrueNjooz 2024 12:00am July 26, 2024 7:43amOmeprazole 40 mg capsule,delayed release(DR/EC) Kcxcbtoypzzk90MTHSOdebg morningMarch 2024 12:00amMarch 2024 7:43am Ondansetron 4 mg tablet,wcbbunhiqwnnhdLybxqzfwxawq6QJAXErxyw 8 hoursOhiohealth O[facility] 2024 12:00amMarch 2024 7:43amProchlorperazine Maleate (Compazine) 10 mg smlnsyQxafnxvphepd80MWNNFivhw 8 hours as neededOhiohealth O'Bleness Hospital 2024 12:00amMarch 2024 7:44amFluticasone Propionate 50 mcg/actuation spray,suspension Qctsnrqpbsah3GWCSGTOWXKHSEIAMktfsLtiaf 2024 12:00amMarch 2024 7:41am administer into each nostrilPsyllium Husk (Fiber (Psyllium Husk)) 0.4 gram capsuleDiscontinued0.4GMPODailyOhiohealth O'Blen[facility] Hospital 2024 12:00amMarch 2024 7:44am Doxycycline Monohydrate 100 mg rhdsmsoYfxubqmvseje251RIHGWtbon dailyOhiohealth O'B[facility] Hospital 2024 12:00amMarch 2024 7:40amLidocaine-Prilocaine 2.5-2.5 % cream Mgaecwyuexhu8UICRQUOOOub neededMarch 2024 12:00amMarch 2024 7:42am Hydrocodone-Acetaminophen 5-325 mg kxvipmXwrqsotmtzll3BWNJREoszd daily as needed 0March 2024 12:00amMarch 2024 7:41amMagic Mouthwash W/Lidocaine 240 Ml Bottle 240 mL bottleDiscontinuedMLPOFour times daily as mfmenw238Dfupv 2024 12:00amMarch 2024 7:42amOxycodone 5 mg/5 mL centsbwpQasxvudwyfpe6TICS EVERY 4-6 HOURS as bebqif9Stzxs 2024 12:00amMarch 2024 7:44am Potassium Chloride (Klor-Con M20) 20 mEq tablet,ER particles/crystals Cxnzhoyvbdbe32IDNQWGpjwx gjsqb205Mqhqn 2024 11:00pmMay 2024 9:25am Magic Mouthwash W/Lidocaine 240 Ml Bottle 240 mL yhxmcwHgcryntdtocw95ZXAYLldl times daily as needed for ydrcyenyg0154Jxjzm 2024 9:14amMay 2024 9:23amSquamous cell carcinoma of oropharynx Malignant neoplasm of oropharynx, unspecifiedTake 10ml by mouth, four times a day, as needed. SWISH AND SWALLOW. will call when they need refill Immunizations Immunization Event Date Not Given Reason Dose Number Cannoneer Lot Number Reason(s) Given Vaccine Information Statement (VIS) Detail Administration Location COVID-19 mRNA, Comirnaty (Pfizer) June 06, 2020 COVID-19 mRNA, Comirnaty (Pfizer)June 27OVID-19 mRNA, Comirnaty (Pfizer)March 06OVI Comirnaty (Zakaz.ua) Tri-Sucrose 12November 25OVID-19 (PFIZER) 12Y and olderDecember 2022Fluzone TIV High-Dose 65YR+April 17, 2024 Medical Equipment Device Date Implanted Device Details Vascular port/catheter July 17, 2024 ALEKSANDR: [id number] Procedures Procedure Date Performed Status PET tumor subq tx strat sb-mt November 13, 2024 11 :26am completed CT abdomen w con March 22, 2025 3:19pm compl eted Relevant Diagnostic Tests and/or Laboratory Data Laboratory Results Test Collection Date/Time Result Date/Time Result Interpretation Reference Range Result Comment Performing Site Corrected White Blood Count November 13, 2024 11:40am November 13, 2024 12:07pm 8.5 10*3/uL 4.1-10.5F[facility] [id number] [address] [facility] [address]Lhdlezhndsx WBC CountJune 2024 11:40amJune 2024 12:07pm8.5 10*3/uL4.1-10.5FSelect [facility] [id number] [address] [facility] [address]Lmv Blood CountJune 2024 11:40amJune 2024 12:07pm 4.11 10*6/uL3.90-5.60[facility] [id number] [address] [facility] [address]CpxagnfqfaQgcr 2024 11:40amJune 2024 12:07pm12.8 g/dLBelow low .0-17.0[facility] [id number] [address] [facility] [address]ZyobgkjhuiQyef 2024 11:40amJune 2024 12:07pm38.5 % Below low .8-50.0[facility] [id number] [address] [facility] [address]Ziwc Corpuscular VolumeJune 2024 11:40amJune 2024 12:07pm93.7 fL83.5-101[facility] [id number] [address] [facility] [address]Hvwl Corpuscular HemoglobinJune 2024 11:40amJune 2024 12:07pm31.1 pg27.5-35.2FSelect [facility] [id number] [address] [facility] [address]Prew Corpuscular Hemoglobin ConcentJune 2024 11:40amJune 2024 12:07pm33.2 g/dL32.5-35.6FSelect [facility] [id number] [address] [place] [address]Dml Cell Distribution WidthJune 2024 11:40amJun2024 12:07pm14.7 %12.0-14.8[facility] [id number] [address] [facility] [address]Vhblfncl CountJune 2024 11:40amJune 2024 12:44gj407 10*3/qX747-230QhnnmporuMemorial Hospital Ctr [id number] [address] [place] [address]Qjir Platelet VolumeJune 2024 11:40amJune 2024 12:07pm8.4 fL6.6-10.1FSelect [facility] [id number] [address] [facility] [address]Mosdhuoxwxi (%) (Auto)November 13, 2024 11:40amJune 2024 12:49pm65.3 %.[facility] [id number] [address] [facility] [address]Fkgeamzdqbz (%) (Auto)November 13, 2024 11:40amJune 2024 12:49pm22.1 %.[facility] [id number] [address] [facility] [address]Ltzagngyj (%) (Auto)November 13, 2024 11:40amJun2024 12:49pm9.2 %.[facility] [id number] [address] [facility] [address]Deyqwdusnwa (%) (Auto)November 13, 2024 11:40amJun2024 12:49pm2.9 %.[facility] [id number] [address] [place] [id number] (%) (Auto)November 13, 2024 11:40amJune 2024 12:49pm0.5 %.[facility] [id number] [address] [facility] [address]Spadznbfo RBC Relative Count (auto)November 13, 2024 11:40amJun2024 12:49pm0.2 /100{WBC}0-0.5FSelect [facility] [id number] [address] [place], [place] [address]Neutrophils # (Auto)November 13, 2024 11:40amJun2024 12:49pm5.6 10*3/uL1.8-7.7FSelect [facility] [id number] [address] [place] [address]Snahpblojcq # (Auto)November 13, 2024 11:40amJune 2024 12:49pm1.9 10*3/uL1.00-4.8[facility] [id number] [address] [facility] [address]Zcfgppydl # (Auto)November 13, 2024 11:40amJune 2024 12:49pm0.8 10*3/uL0.0-0.8[facility] [id number] [address] [place] [id number] # (Auto)November 13, 2024 11:40amJune 2024 12:49pm0.2 10*3/uL0.0-0.45[facility] [id number] [address] [facility] [address]Hmsnhglnl # (Auto)November 13, 2024 11:40amJune 2024 12:49pm0.0 10*3/uL0.0-0.2FSelect [facility] [id number] [address] [facility] [address]Yft Blood Cell MorphologyJune 2024 11:40amJune 2024 12:49pmNormalNormCincinnati [facility] [id number] [address] [facility] [address]Soepythx EstimateJune 2024 11:40amJune 2024 12:49pm NormalNormCincinnati [facility] [id number] [address] [facility] [address]Yqkievwc Morphology CommentJune 2024 11:40amJune 2024 12:49pmNormalNormCincinnati Children's [facility] [id number] [address] [facility] [address]Ulohzfi LevelJune 2024 11:40amJune 2024 12:37xx523 mg/dLAbove high dyvqlm63-037VCP recommended reference rangeRandom Glucose Reference Range is dependent on time and content of last meal. Glucose of more than 200 mg/dL in a nonstressed, ambulatory subject supports the diagnosisof Diabetes Mellitus.[facility] [id number] [address] [facility] [address]Palyo Urea NitrogenJune 2024 11:40amJune 2024 12:24pm29 mg/dLAbove high normal-[facility] [id number] [address] [facility] [address]Zvvvg Urea NitrogenNovember 2024 3:25pmNovember 2024 4:07pm22 mg/dL-[facility] [id number] [address] [facility] [address]GsrqvlqmjqBdfz 2024 11:40amJune 2024 12:24pm0.80 mg/dL0.70-1.30[facility] [id number] [address] [facility] [address]McrcnlzmyqJlpcijqh 6th, 2025 3:25pmNov2024 4:07pm 0.87 mg/dL0.70-1.30[facility] [id number] [address] [facility] [address]Asizxclqk GFR (CKD-EPI)November 13, 2024 11:40amJun2024 12:24pm> 60.0 mL/MinMem[facility] Hospital Ctr [id number] [address] [facility] [address]Hgoscicls GFR (CKD-EPI)March 22, 2025 3:25pmNov2024 4:07pm> 60.0 mL/Min[facility] [id number] [address] [place] [id number] LevelJune 2024 11:40amJune 2024 12:16kt810 mmol/J770-936OcfwnnpawMemorial Hospital Ctr [id number] [address] [facility] [address]Kmfhdawcy LevelJune 2024 11:40amJune 2024 12:24pm 4.2 mmol/L3.5-5.1FSelect [facility] [id number] [address] [facility] [address]Fnbcxees LevelJune 2024 11:40amJune 2024 12:64cm033 mmol/Z82-539FliuvukseMemorial Hospital Ctr [id number] [address] [facility] [address]Vhfkos Dioxide LevelJune 2024 11:40amJune 2024 12:24pm26.6 mmol/L21.0-31.0[facility] [id number] [address] [facility] [address]Zztik GapJune 2024 11:40amJune 2024 12:24pm10.6 mEq/L6.0-15.0[facility] [id number] [address] [facility] [address]Pzgrpxa LevelJune 2024 11:40amJune 2024 12:24pm9.3 mg/dL8.6-10.3FSelect [facility] [id number] [address] [facility] [address]Nazwzfnfg LevelJune 2024 11:40amJune 2024 12:24pm 2.1 mg/dL1.9-2.7FSelect [facility] [id number] [address] [facility] [address]Yuppg ProteinJune 2024 11:40amJune 2024 12:24pm7.3 g/dL6.4-8.9[facility] [id number] [address] [facility] [address]OsqnnlvWrgb 2024 11:40amJune 2024 12:24pm4.2 g/dL 3.5-5.7F[facility] [id number] [address] [facility] [address]RdnxumitZmpq 2024 11:40amJune 2024 12:24pm3.1 g/dL [facility] [id number] [address] [facility] [address]Nacuvhe/Globulin RatioJune 2024 11:40amJune 2024 12:24pm1.4FSelect [facility] [id number] [address] [facility] [address]Mqtth BilirubinJune 2024 11:40amJune 2024 12:24pm 0.4 mg/dL0.3-1.0[facility] [id number] [address] [facility] [address]Dhoekbcsc Amino Transf (AST/SGOT)November 13, 2024 11:40amJune 2024 12:24pm15 U/L73-07LmrvfnefuMemorial Hospital Ctr [id number] [address] [facility] [address]Hpkuhua Aminotransferase (ALT/SGPT)November 13, 2024 11:40amJune 2024 12:24pm14 U/L7-52[facility] [id number] [address] [place] [address]Zznkeqws PhosphataseJune 2024 11:40amJun2024 12:24pm80 U/B79-674WrukitpmqMem[facility] [id number] [address] [facility] [address]Kyajkjsn Creatinine Clearance (ChemJune 2024 11:40amJune 2024 12:24pm60.92[facility] [id number] [address] [place], [place] [address]Pharmacy Creatinine Clearance (ChemNovember 2024 3:25pm March 22, 2025 4:07pmN/[facility] [id number] [address] [place] [address]Tppklba GlucoseJun2024 11:36amJun2024 12:04pm 114 mg/dLRandom Glucose Reference Range is dependent on time and content of last meal. Glucose of more than 200 mg/dL in a nonstressed, ambulatory subject supports the diagnosis of Diabetes Mellitus.Point of Care testing Diagnostic Imaging Reports Author Mario Urias [facility] CenterAuthoredUn[facility] 2024 3:39pmReportDictated Date/TimeDictated ByStatusRadiology ReportFormerly [facility]2024 3:39pmJosehemanth Urias Jr DOcompleteMet[facility] [place] [address] [place], [place] [address] Nuclear Medicine Report Signed Patient: Jair Bennett MR#: [id number] : 1940 Acct:[id number] Age/Sex: 84 / M ADM Date: 5 Loc: XT Room: Type: [facility] RCR Attending Dr: Talib Faustin MD Copies to: Mario Urias Jr, DO RAYSHAWN Hilliard MD Norleena Poynter, MD~ Ordering Provider: Becky Coruch APRN Date of Service: 11/13/24 PET/PET tumor [...] Jr., D.O. 11/13/2024 3:50 PM Dictation Location: [place] [address] Transcribed By: [facility] 11/13/24 1550 Dictated By: Mario Urias Jr, DO 11/13/24 1539 Signed By: <Electronically signed by Mario Urias Jr, DO in OV> 11/13/24 1550 Author Christian Melton [facility] CenterAuthoredNovverde valley [facility] center 2024 9:37pmReportDictated Date/TimeDictated ByStatusRadiology ReportNovember 2024 9:37pmHardik OsborneMetroHealth [facility] [place] [address] [place] [address] CT Scan Report Signed Patient: Jair Bennett MR#: [id number] : 1940 Acct:[id number] Age/Sex: 84 / M ADM Date: 5 Loc: CT Room: Type: [facility] Attending Dr: Chang Russell MD Copies to: Chang Russell MD~ Ordering Provider: Chang Russell MD Date of Service: 03/22/25 CT/CT abdomen w con: R10.11 - Right upper quadrant pain CT abdomen with contrast TECHNIQUE: Axial imaging with 2-D reconstruction. The CT exam was performed using one or more the following dose reduction techniques: Automated exposure c ontrol, adjustment of the MA and/or Kv according to patient size, or use of the iterative reconstruction technique. COMPARISON: 09/20/2024 History: Right lower quadrant pain. LIMITATIONS: None LOWER THORAX large volume of atherosclerosis of carotid arteries. Patent coronary stenting. Cardiac leads present. 5 mm right costophrenic angle nodule unchanged. Mild atelectasis. LIVER: Unremarkable GALLBLADDER: Cholecystectomy clips identified. BILE DUCTS: No dilatation SPLEEN: Unremarkable PANCREAS: Unremarkable ADRENAL GLANDS: Unremarkable KIDNEYS:Unremarkable AORTA: No abdominal aortic aneurysm identified. Moderate volume of atherosclerosis of the aorta and branches. RETROPERITONEUM: No significant retroperitoneal abnormalities identified. MESENTERY:Unremarkable STOMACH:Unremarkable SMALL BOWEL: The small bowel loops are nondistended. APPENDIX: The appendix is normal. COLON: Colonic diverticulosis moderate burden of stool throughout the colon. URINARY BLADDER: Urinary bladder is unremarkable. REPRODUCTIVE SYSTEM: Reproductive structures are unremarkable. PNEUMOPERITONEUM: None PERITONEAL FLUID:None BONY STRUCTURES: Lumbar degeneration. ABDOMINAL WALL: Unremarkable CT/CT abdomen w con IMPRESSION: No acute inflammatory changes. Cholecystectomy. Constipation. Colonic diverticulosis. Stable 5 mm right costophrenic angle nodule Impression dictated by: Christian Melton M.D. 03/22/2025 9:46 PM Dictation Location: [facility]--20 Transcribed By: [facility] 03/22/252145 Dictated By: Christian Melton DO 03/22/252136 Signed By: <Electronically signed by Christian Melton DO in OV> 03/22/252145 Vital Signs Vital Reading Result Reference Range Collection Date/Time Height 66 [in_i] October 04, 2024 1:50trGsxxsg71.12 kgAugust 2024 12:08pmBody Thsoxixpwlg00.3 [degF]97.6-99.0April 2024 7:23amHeart Rate90 /auv93-477Gdcct 2024 7:23amRespiratory rate18 /klu05-60Dnbrr 3rd, 2025 7:23amOxygen saturation by Pulse uxcvldxl95 %95-100April 2024 7:23amBP Hgvevvcl259 mm[Hg]100-140April 2024 7:23amBP Hqtgapjup67 mm[Hg]60-100April 2024 7:26mvZmfecq92 [in_i] March 08, 2025 12:54wzMnrimh25.30 kgOctober 2024 12:46pmHeart Rate63 /tug76-243Ljktqkb 2024 12:46pmBP Xekkwlcs733 mm[Hg]100-140Oct[facility] 2024 12:46pmBP Cvjvuqoha19 mm[Hg]60-100October 2024 12:46pmBMI (Body Mass Index)25.7 kg/b3Qkzmbuq 2024 12:46kcWquhah23 [in_i]April 03, 2025 10:27brOzqlvj41.85 kgNovverde valley medical center 2024 10:55amHeart Rate81 /vib66-613Utrbnmhs 18th, 2025 10:55amBP Cqiwidzy900 mm[Hg]100-140Nov2024 10:55amBP Iykloxclb39 mm[Hg]60-100Nov2024 10:55amBMI (Body Mass Index)25.6 kg/r5Bnpbemsf2024 10:55am Advance Directives Advance Directive Response Recorded Date/ Time Advance Directives Yes July 26 7:22am Insurance Providers Guarantor Annabelle Lizama Address [address] [facility] [address]Tkdhums Info.Home Phone: Coverage Status Update:2025 Payer Group Member ID Coverage Type Subscriber Relationship to Subscriber Effective Date Expiration Date A[employer] Medicare Advantage PFFS Retired Id: [id number] Bauer , P Id: [id number] [address] [facility] [address] Home Phone: Email: [email or web address] Encounters Encounter Location(s) Arrival/Admit Date Discharge/Departure Date Discharge/Departure Disposition Provider(s) Departed Physician/ Provider Office Visit -[facility] Ambulatory February 22, 2025 9:41am February 22, 2025 10:08am Discharged to home care or self care (routine discharge) Becky Crouch APRN Registered Recurring -[facility]cer Center Acute February 9:51am JENNIFER Tollivereparted Physician/Provider Office Visit-[facility] GastroOctober 2024 1:20pmOctober 2024 2:12pmDischarged to home care or self care (routine discharge)JENNIFER Vargaseparted Clinical- [facility] Scan [facility] 2024 3:14pmNovverde valley medical center 2024 3:15pmDischarged to home care or self care (routine discharge)Chang Russell , JENNIFEReparted Physician/Provider Office Visit-[facility] Neu[facility] 2024 10:26amNovember 2024 11:29amDischarged to home care or self care (routine discharge)Adrian Osborn APRN Recent Diagnosis Onset Date Admit Date Squamous cell carcinoma of oropharynx Unknown February 22, 2025 9:41am Abnormal CT of the abdomen Unknown Febob er 2024 1:20pm Right upper quadrant abdominal pain Unknown March 08, 2025 1:20pm Assessments Diagnosis Onset Date Resolution Status Admit Date Squamous cell carcinoma of oropharynx acuteOctober 2024 9:41amAbnormal CT of the abdomenacuteOctober 2024 1:20pmRight upper quadrant abdominal painacuteOctober 2024 1:20pm Plan of Treatment Author Missy Villarreal [facility] 2024 11:23amVertigo - R42 (Primary), vertigo manifested as dizziness [...] ablation with pain management early August 2023. He is having worsening with his back pain. He has reached out to pain mgt. He was planning to get an RFA and insurance Neuropathy - G62.9, EMG BLE 12/25/2020 revealed [...] not responded to PT in the past. ?? Neck pain - M54.2 Degenerative disc disease, [...] is undergoing chemo and radiation. He has finished treatment. He has not been eating well due to throat pain and is going to get a G tube placed. Nurtec was not beneficial. ?? Plan: GUZMAN from to Continue Zonegran 25mg PO BID for neuropathic pain. Continue Zanaflex 4mg 1 tab PO QHS for muscle spasms. I counseled the patient on fall precautions. I discussed the high risk of trauma and debility associated with falls. He verbalized understanding. The diagnosis was all discussed with the patient.?? All questions were answered and they agreed with the treatment plan.?? Patient will call if there are any new issues or questions. Author Becky Crouch [facility] CenterAuthoredOctober 2024 9:34am Return to clinic in 6 months with ART SUPERVISOR Assessment: 84-year-old male with stage II T1 [...] in 6 months. He is agreeable. Author Chang Russell [facility] CenterAuthoredOctober 2024 1:18pmWe will repeat his CT scan here at [facility] to evaluate the imaging herself. It is highly unlikely parasites were seen on imaging this most likely represents food debris or his pills. He has a history of PEG tube which will affect gastric motility so there may be some delayed gastric emptying even if he does not remember eating immediately before his CT scan. His right upper quadrant pain is not consistent with biliary colic, on top of that he is already had a cholecystectomy. The pain is reproducible on my exam right at the coastal arch of his right ribs, likely this is costochondritis. The right upper quadrant pain is most consistent with musculoskeletal, would recommend conservative management of this. If NSAIDs are planned to be used given his aspirin and clopidogrel use we would recommend he be placed on higher dose PPI 40 mg twice daily for prophylaxis during this. If he fails this then consider referral to pain for CC joint injection Future Tests Future scheduled test information is unavailable Pending Tests Pending diagnostic test information is unavailable Future Visits Future appointment information is unavailable Future Procedures Procedure Name Ordered Date Scheduled Date ANC>=1500 July 20, 2024 9:08am July 12:00am ANC>=1500 August 09, 2024 9:04am August 11:00pm If ANC<1000 or Platelets<80, 000 Omit Dose July 20, 2024 9:08am July 26, 2024 11:00pm If ANC<1000 or Platelets<80, 000 Omit Dose July 20, 2024 9:08am August 02, 2024 11:00pm Hold & Call Ordering Physici an if Pt Does Not Meet Criteria August 09, 2024 9:04am August 16, 2024 11:00pm Hold & Call Ordering Physici an if Pt Does Not Meet Criteria July 20, 2024 9:08am July 20, 2024 12:00am Apply O2 via Nasal Cannula 4 L to Maintain SpO2 of >=90% July 20, 2024 9:08am July 20, 2024 12:00am Apply O2 via Nasal Cannula 4 L to Maintain SpO2 of >=90% July 20, 2024 9:08am July 26, 2024 11:00pm Apply O2 via Nasal Cannula 4 L to Maintain SpO2 of >=90% July 20, 2024 9:08am August 02, 2024 11:00pm Apply O2 via Nasal Cannula 4 L to Maintain SpO2 of >=90% August 09, 2024 9:04am August 16, 2024 11:00pm Orders Panel Function Communication Order July 20, 2024 12:32pm July 20, 2024 12:32pm Orders Panel Function Communication Order August 03, 2024 12:41pm August 03, 2024 12:41pm Orders Panel Function Communication Order August 03, 2024 12:42pm August 03, 2024 12:42pm Orders Panel Function Communication Order August 09, 2024 1:14pm August 09, 2024 1:14pm Orders Panel Function Communication Order August 09, 2024 1:15pm August 09, 2024 1:15pm Orders Panel Function Communication Order June 30, 2024 1:57pm June 30, 2024 1:57pm Orders Panel Function Communication Order August 03, 2024 12:44pm August 03, 2024 12:44pm Orders Panel Function Communication Order August 09, 2024 1:16pm August 09, 2024 1:16pm Platelets>=100,000 August 09, 2024 9:04am August 16, 2024 11:00pm Platelets>=100,000 July 20, 2024 9:08am July 20, 2024 12:00am Future Medications Future medication information is unavailable Patient Instructions Patient instructions are unavailable Goals Acute Goals Author Authored Date Maintain/increase activity l evels * Understands factors that may lead to activity intolerance * Helps perform self care activities * Maintains maximum range of motion * Increase/regain muscle mass and strength * Maintains VS WNL during activity * Maintain intact skin integrity Updated: 3Ckayla [facility] 2024 7:12am
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
--- OUTSIDE RECORDS SUMMARY | 2025-04-16 07:42 | XMS_ITS | Patient Health Record ---
Author Organization [facility] in [place] Address [address] [place] [address] Care Team Providers Care Rewinder Name Role Phone Haris Armstrong Primary Care Provider Merrill, Susana Unavailable [phone] Allergies Allergen (clinical drug ingredient) Drug/Non Drug Allergy documented on EMR Reaction Allergy Type Onset Date Status NiaspanUnknownDrug AllergyActiveAdhesiveUnknownAllergyActive Results Component Value Reference Range Notes CREATININE Reviewed date:02/02/2025 04:59:14 PM Interpretation: Performing Lab: Notes/Report: [facility] , Creatinine 0.92 0.70-1.30 mg/dL Estimated GFR ( Kalee>60>=60 mL/min/1.73m 2Estimated GFR (Non- Esperanza>60>=60 mL/min/1.73m 2Performing Lab:see noteML - [facility] LBCBC AUTO DIFF Reviewed date:02/07/2025 12:40:42 PM Interpretation: Performing Lab: Notes/Report: [facility] ,White Blood Count6.74.0-11.0 10 3/uLRed Blood Count4.104.70-6.10 10 6/uL Hekgtgqcdy34.814.0-18.0 g/vQYkukvuwirf95.642.0-54.0 %Mean Corpuscular Lkohmf79.1 80.0-94.0 fLMean Corpuscular Pvkffjzgwe37.225.9-34.0 pgMean Corpuscular HGB Conc 33.229.9-35.2 g/dLRed Cell Distribution Width13.711.0-15.0 %Platelet Duxnc680 150-450 10 3/uLMean Platelet Vfxabr66.49.5-13.5 fLNeutrophils Percent Auto59.3 43.0-75.0 %Lymphocytes Percent Auto24.920.5-60.0 %Monocytes Percent Auto9.41.7- 12.0 %Eosinophils Percent Auto4.80.9-7.0 %Basophils Percent Auto0.60.2-2.0 % Immature Granulocytes Pct Auto1.00.0-0.5 %Neutrophils Absolute Auto4.01.4-6.5 10 3/uLLymphocytes Absolute Auto1.71.2-3.8 10 3/uLMonocytes Absolute Auto0.60.3-0.8 10 3/uLEosinophils Absolute Auto0.30.0-0.7 10 3/uLBasophils Absolute Auto0.00.0- 0.1 10 3/uLImmature Granulocytes Abs Auto0.070.00-0.03 10 3/uLPerforming Lab:see noteML - [facility] LBXR lumbar spine 6V w bending Reviewed date:02/23/2025 11:49:27 AM Interpretation: Performing Lab: Notes/Report: Source Facility: [place] [address] XRay Report Signed Patient: JAIR GROSS MR#: [id number] : 1940 Acct:[id number] Age/Sex: 84 / M ADM Date: 02/23/25 Loc: RAD Attending Dr: Antonio Roque NP Ordering Physician: Antonio Roque NP Date of Service: 02/23/25 Procedure(s): XR lumbar spine 6V w bending Accession Number(s): [id number] cc: Antonio Roque NP; Leonardo Armstrong M.D. [place] [address] Patient Name: JAIR GROSS MRN: [id number] date: 1940 Sex: M Assigned Patient Location: [facility] Current Patient Location: [facility] Accession/Order Number: [id number] Exam Date: 02/23/2025 08:57 Report Date: 02/23/2025 [...] Valdez M.D. 02/23/2025 9:41 AM Dictation Location: [place] [address] Electronically authenticated by: [id number] Y Date: 02/23/2025 09:41 Dictated By: Lorene Valdez M.D. Signed By: 02/23/25 0944 DD/ TD/TT: Seismograph Helper:VITAMIN D 25 [place] Reviewed date:02/07/2025 12:40:42 PM Interpretation: Performing Lab: Notes/Report: [facility] ,Vitamin D46.7 >100 ng/mL Potential Toxicity <20 ng/mL Vit D deficient 30-100 ng/mL Vit D sufficient 20-<30 ng/mL Vit D insufficient Performing Lab:see noteML - [facility] LBTSH Reviewed date:02/07/2025 12:40:42 PM Interpretation: Performing Lab: Notes/Report: [facility] ,Thyroid Stimulating Hormone3.9490.358-3.740 uIU/mLPerforming Lab:see noteML - [facility] LBT4 Reviewed date:02/07/2025 12:40:42 PM Interpretation: Performing Lab: Notes/Report: [facility] ,T4 Thyroxine5.404.50-12.10 ug/dLPerforming Lab:see noteML - [facility] LBPROF 14(COMP METB) Reviewed date:02/07/2025 12:40:42 PM Interpretation: Performing Lab: Notes/Report: [facility] ,Gwfpdn177481-979 mmol/LPotassium4.03.5-5.1 mmol/UVwyjympt66176-367 mmol/LCarbon Umyvnfd52.521.0-32.0 mmol/LAnion Gap15.4Qujomsh44823-890 mg/dLBlood Urea Fixujqtx43.07.0-18.0 mg/dLCreatinine0.980.70-1.30 mg/dLEstimated GFR ( Kalee>60>=60 mL/min/1.73m 2Estimated GFR (Non- Esperanza>60>=60 mL/min/1.73m 2BUN Creatinine Ratio16.1Sgkjvno5.38.5-10.1 mg/dLBilirubin Total0.50.2-1.0 mg/dL Aspartate Amino Pnyarjozakq0769-42 U/LAlanine Cjjjnyedjovwkckx1610-79 U/L Alkaline Ytxphujncqu3897-079 U/LTotal Protein7.56.4-8.2 g/dLAlbumin Level3.83.4- 5.0 g/dLGlobulin3.7Albumin Globulin Ratio1.0Performing Lab:see noteML - [facility] LBLIPID PROFILE Reviewed date:02/07/2025 12:40:42 PM Interpretation: Performing Lab: Notes/Report: [facility] ,Utqdolcjkoajv431<=150 mg/rRWtgiowooykc091<=200 mg/dLHDL Pzreglbpjpl1754-99 mg/dL > or =60 mg/dl - LOW CARDIOVASCULAR RISK <40 mg/dl - HIGH CARDIOVASCULAR RISK LDL Cholesterol Gqdzlzfrfl61.0 160-189 mg/dl HIGH 130-159 mg/dl BORDERLINE HIGH <100 mg/dl OPTIMAL >190 mg/dl VERY HIGH 100-129 mg/dl NEAR OR ABOVE OPTIMAL VLDL KJSDGGTDHGJ40.2Chol HDL Ratio3.5 >11.0 HIGH RISK 3.3 - 4.4 LOW RISK 7.1 - 11.0 MODERATE RISK 4.4 - 7.1 AVERAGE RISK Performing Lab:see note - [facility] LBGLYCOHEMOGLOBIN A1C Reviewed date:02/07/2025 12:40:42 PM Interpretation: Performing Lab: Notes/Report: [facility] ,Glycohemoglobin A1C6.64.5-6.2 % ADA THERAPEUTIC TARGET < 7.0 ACTION SUGGESTED > 7.0 ADA RECOMMENDED LIMIT 4.0 - 6.0 Estimated Average Nshlnrf189Iacnqrbbyy Lab:see note - [facility] FREE T3 Reviewed date:02/07/2025 12:40:42 PM Interpretation: Performing Lab: Notes/Report: [facility] ,Free T32.842.18-3.98 pg/mLPerforming Lab:see [facility] CT abdomen pelvis w con Reviewed date:02/02/2025 04:59:14 PM Interpretation: Performing Lab: Notes/Report: Source Facility: [place] [address] CT Scan Report Signed Patient: JAIR GROSS MR#: [id number] : 1940 Acct:[id number] Age/Sex: 84 / M ADM Date: 02/02/25 Loc: LAB Attending Dr: Leonardo Armstrong M.D. Ordering Physician: Leonardo Armstrong M.D. Date of Service: 02/02/25 Procedure(s): CT abdomen pelvis w con Accession Number(s): [id number] cc: Leonardo Armstrong M.D. [place] [address] Patient Name: JAIR GROSS MRN: [id number] date: 1940 Sex: M Assigned Patient Location: LAB Current Patient Location: LAB Accession/Order Number: [id number] Exam Date: 02/02/2025 08:45 Report Date: 02/02/2025 [...] Valdez M.D. 02/02/2025 9:42 AM Dictation Location: [employer] Electronically authenticated by: [id number] Y Date: 02/02/2025 09:42 Dictated By: Lorene Valdez M.D. Signed By: 02/02/2544 DD/ 1 TD/TT: Seismograph Helper:PSA Total+% Free Reviewed date:02/08/2025 12:38:26 PM Interpretation: Performing Lab: Notes/Report: [facility] ,Prostate Specific Ag<0.10.0-4.0 ng/mL According to the [employer] [employer], Serum PSA followed by a subsequent confirmatory PSA value 0.2 ng/mL or greater. Values obtained with different assay methods or radical prostatectomy. The AUA defines biochemical interpreted as absolute evidence of the presence or absence kits cannot be used interchangeably. Results cannot be Mathew ECLIA methodology. of malignant disease. recurrence as an initial PSA value 0.2 ng/mL or greater should decrease and remain at undetectable levels after PSA, Free<0.02N/A ng/mLRoche ECLIA methodology.% Free PSATNP. % The table below lists the probability of prostate cancer for recommendations regarding the use of Please note: Javad et al did not make specific Unable to calculate result since non-numeric result [address] [place], [place] [id number] [id number]:1542). 4 and 10 ng/mL, by patient age (Catalona et al, CAROLANN 1998, 15.01-20.00% 17% 23% of men. percent free PSA for any other population Pig Caster: Sathish Queen PhD, Phone: [phone] 0.00-10.00% 56% 55% obtained for component test. % Free PSA 50-64 yr 65-75 yr Performed at: [facility] 20.01-25.00% 10% 20% >25.00% 5% 9% 10.01-15.00% 24% 35% men with non-suspicious DIDIER results and total PSA between Performing Lab:see noteLC - [facility] LBTSH Reviewed date:03/07/2025 12:44:00 PM Interpretation: Performing Lab: Notes/Report: [facility] ,Thyroid Stimulating Hormone1.7030.358-3.740 uIU/mLPerforming Lab:see noteML - [facility] LBT4 Reviewed date:03/07/2025 12:44:00 PM Interpretation: Performing Lab: Notes/Report: [facility] ,T4 Thyroxine6.004.50-12.10 ug/dLPerforming Lab:see noteML - [facility] LBFREE T3 Reviewed date:03/07/2025 12:44:00 PM Interpretation: Performing Lab: Notes/Report: [facility] ,Free T32.872.18-3.98 pg/mLPerforming Lab:see noteML - [facility] LB Reason For Referral Reason [facility]. Diagnosis [address] of the a bdomen (R93.5) Referral Organization [facility] Referring Provider First Name Haris Referring Provider Last Name Yahir Referring Provider [facility] latanya Referred Provider Yash Maria Referred Provider Specialty General Surg popeye Referral Priority Routine Diagnosis [address] of the a bdomen (R93.5) Referral Organization [facility] Referring Provider First Name Haris Referring Provider Last Name Yahir Referring Provider [facility] latanya Referred Provider [facility], Gastroenterolog y Referred [...] Orally Once a day; Duration: 30 daysActive Iwvngcdngr-NAXP-Ufmawxdc 50-325-40 MG1 capsule as needed Orally every [...] Comme nts Abrysvo Unknown 04/21/2024 Administered Comirnaty App [employer] Syringe Pre-Filled 30 mcg/0.3 bVAlqxepp57/13/2023Administered Flu, Fluad (83168) 65 yrs + High Dose Seasonal (6312-9209)Oyqiqam2704/17/2024 AdministeredPneumococcal (Prevnar 13)Xtduxuh9801/30/2014dministeredPneumococcal (Prevnar 20)Vxnvofb1511/22/20231273AflynluwiaeyLUNY-ZIN-6 (COVID 19 Pfizer 30mcg/0.3mL)Vyzeitt77/21/3037MakughpcycrwCOBY-SAI-2 (COVID 19 Pfizer 30mcg/0.3mL)Hbvyhuh07/11/1393PynjcrotpqtwTUWZ-QNG-8 (COVID 19 Pfizer 30mcg/0.3mL)Inygkpa83/21/1722PlwmfcbvategSCAS-GGB-2 (COVID 19 Pfizer 30mcg/0.3mL), grady arbjdsyRyjyxqi19/12/2022AdministeredZOSTER (SHINGLES) VACCINE (HZV)Twjreli4511/22/2023dministeredZOSTER (SHINGLES) VACCINE (HZV)Unknown 02/09/2024dministered Social History Tobacco Use: Social History Observation Description Date Details (start date - stop date) Former Smoker NA - NA Tobacco Use/Smoking Question Answer Notes Patient is a former smoker How long has it been since you last smoked?> 10 yearsAUDIT-C (Standard) Question Answer Notes Did you have a drink containing alcohol in the p ast year? No Fdwxvj2BnybfbczyxvnlaSrqjkduvYdiodzl Notes: Quit 35 years ago Quit 35 years ago Quit 35 years ago Quit 35 years ago Quit 35 years ago Quit 35 years ago Problems Problem Type SNOMED Code ICD Code Onset Dates Problem Status W/U Status Risk Notes Problem Essential hypertension (08199394 ) Essential (primary) hypertension (I10) ActiveconfirmedProblemObstructive sleep apnea syndrome (disorder) (31844053) Obstructive sleep apnea (adult) (pediatric) (G47.33)ActiveconfirmedProblem Gastro-esophageal reflux disease without esophagitis (126126893)Gastro- esophageal reflux disease without esophagitis (K21.9)ActiveconfirmedProblem History of malignant neoplasm of prostate (403184996)Personal history of malignant neoplasm of prostate (Z85.46)ActiveconfirmedProblemImpacted cerumen (70006747)Impacted cerumen, right ear (H61.21)ActiveconfirmedProblemVitamin D deficiency (76215140)Vitamin D deficiency, unspecified (E55.9)Activeconfirmed ProblemOverweight (015780293)Overweight (E66.3)ActiveconfirmedProblemChronic migraine without aura, non-intractable (582069732101063)Chronic migraine without aura, not intractable, without status migrainosus (G43.709)Activeconfirmed ProblemPeripheral venous insufficiency (03609372)Venous insufficiency (chronic) (peripheral) (I87.2)ActiveconfirmedProblemLumbosacral spondylosis without myelopathy (97808886)Spondylosis without myelopathy or radiculopathy, lumbar region (M47.816)ActiveconfirmedProblemPeroneal tendinitis (44986258)Peroneal tendinitis, right leg (M76.71)ActiveconfirmedProblemPain in right foot (496666390361687)Pain in right foot (M79.671)ActiveconfirmedProblemPain in limb (29741768)Pain in right toe(s) (M79.674)ActiveconfirmedProblemPain in limb (86687876)Pain in left toe(s) (M79.675)ActiveconfirmedProblemLaceration without foreign body of right middle finger without damage to nail, initial encounter (S61.212A)ActiveconfirmedProblemSprain of deltoid ligament of right ankle, sequela (S93.421S)ActiveconfirmedProblemAdult health examination (387178861) Encounter for general adult medical examination without abnormal findings (Z00.00)ActiveconfirmedProblemLong-term current use of drug therapy (758195772) Other terminal worker (current) drug therapy (Z79.899)ActiveconfirmedProblemCardiac pacemaker in situ (710977635)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)Active confirmedProblemCoronary arteriosclerosis (disorder) (37860896)CAD in [place] artery (I25.10)ActiveconfirmedProblemDyslipidemia (351328646)Dyslipidemia (E78.5)ActiveconfirmedProblemHypothyroidism (81825023)Hypothyroidism (E03.9) ActiveconfirmedProblemAnemia (285813383)Anemia (D64.9)ActiveconfirmedProblem Polyneuropathy (34784491)Polyneuropathy (G62.9)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)Plantar fasciitis, right (M72.2)Activeconfirmed ProblemLeaking of urine (217962527)Leaking of urine (R32)ActiveconfirmedProblem Insomnia (016732953)Insomnia, unspecified type (G47.00)ActiveconfirmedProblem Degeneration of cervical intervertebral disc (48004802)Degeneration of intervertebral disc of cervical region (M50.30)ActiveconfirmedProblem Osteoarthritis (203718333)Other type of osteoarthritis, unspecified site (M19.90)ActiveconfirmedProblemInstability of joint of right ankle (5556800234661304)Instability of right ankle joint (M25.371)Activeconfirmed ProblemAllergic rhinitis caused by pollen (31227389)Seasonal allergic rhinitis due to pollen (J30.1)ActiveconfirmedProblemHyperglycemia due to type 2 diabetes mellitus (569581328612418)Controlled type 2 diabetes mellitus with hyperglycemia, without long-term current use of insulin (E11.65)Activeconfirmed ProblemBilateral carpal tunnel syndrome (14784113093144840)Bilateral carpal tunnel syndrome (G56.03)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 (105882781)Controlled type 2 diabetes mellitus with diabetic polyneuropathy, without 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)Activeconfirmed ProblemGlaucoma (64732857)Glaucoma of both eyes, unspecified glaucoma type (H40.9)ActiveconfirmedProblemObesity (511999800)Obesity, unspecified classification, unspecified obesity type, unspecified whether serious comorbidi ty present (E66.9)ActiveconfirmedProblemAt low risk for fall (644988492)At low risk for fall (Z91.81)ActiveconfirmedProblemDepression Screening (034999085) Encounter for screening for depression (Z13.31)ActiveconfirmedProblemTibialis tendinitis (52986657)Posterior tibial tendon dysfunction (PTTD) of right lower extremity (M76.821)Activeconfirmed Vital Signs Heart Rate 72 /min 05/01/2024 Omjngksqhzc53 degrees Bwobdronkp99/16/2024lood pressure qgwwkijgx46 mm Hg 01/30/20250820Cbghtskv15 %05/01/20247645Vlmqof53 in01/30/2025lood pressure uusuczmn263 mm Hg01/30/20258764Dspwst411.0 lbs01/30/2025BMI25.5 kg/m201/30/2025 Encounters Encounter Location Date Provider Diagnosis [facility] [address] [place] [address] 01/30/2025 Haris Armstrong Controlled type 2 diabetes mellitus with diabetic polyneuropathy, without long-term current use of insulin E11.42 ; Essential (primary) hypertension I10 ; Dyslipidemia E78.5 ; Gastro-esophageal reflux disease without esophagitis K21.9 ; Vitamin D deficiency, unspecified E55.9 and Right upper quadrant abdominal pain R10.11 [facility] (PODIATRY) [address] [place] [address] [place] [address] 05/01/2024 Susanalibra Rocheen Controlled type 2 diabetes mellitus with diabetic polyneuropathy, without long-term current use of insulin E11.42 [facility] [address] [facility] [place] [address] 01/30/2025 Haris Hoy [facility] [place] [address] 02/02/2025Doug HoyAbnormal CT of the abdomen R93.5[facility] [place] [place] [address]/Doug HoyAbnormal [address] of the abdomen R93.5BN[facility] [place] [address]/Doug HoyAnemia D64.9 and Hypothyroidism E03.9 [facility] [place] [address] 02/08/2025Doug [facility] [place] [address]/Doug [facility] [place] [address]/Doug [facility] [place] [address]/Doug HoyBVDelta [facility] [place] [address]/Doug Hoy Assessments Encounter Date Diagnosis (ICD Code) Assessment [...] W CON 01/30/2025 THYROID PANEL (T4/TSH/FREE T3) 5 THYROID PANEL (T4/TSH/FREE T3) PSA, SCREENING 01/30/2025 CMP (COMP MET PADRON) w/eGFR CKD-EPI 2024 CBC WITH DIFF 01/30/2025 Next Appt Details Provider Name:Haris Armstrong, 10:30:00 AM, [address] [place], [address], Insurance Providers Payer Name Payer Address Payer Phone Subscriber Number Group Number Insured Name Patient Relationship to Insured Coverage Start Date Coverage End Date [employer] MED[employer]ARE [address] [address] [place], [place] [id number] Jair Gross Self - patient is the insured 4 [place] [id number] Kristal Grossf - patient is the insured Medical (General) [...] radicu lopathy, lumbar region M47.816 CAD in [place] artery I25.10 Encounter for screening for depression Z 13.31 Venous insufficiency (chronic) (peripher al) I87.2 Personal history of malignant neoplasm o f prostate Z85.46 Other intermediate (current) drug therapy Z 79.899 Impacted cerumen, [...] Device Dr Arellano 08/30/2019 Cardiac Pacemaker Insertion 2014 Neck Surgery 2010 Bilateral Hernia Repair 2009 Tonsillectomy VasectomyCataractCholecystectomyPacemakerProstatectomy
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
--- OUTSIDE RECORDS SUMMARY | 2025-04-16 07:42 | XMS_ITS | Encounter Summary ---
Author Organization [facility] Address [address] [place] [address] Care Team Providers Care Sausage Grinder Name Role Phone Yajaira Roque N[address] MAGISTRATE-C Primary Care Provider [phone] Reason for Visit * ReasonCommentsMed Refill Encounter Details DateTypeDepartmentCare Team (Latest Contact Info)Vglyzdwqnoi79/15/2025Refill [facility] [address] [place] [phone] Margaret Arellano MD [address] [facility] [address] [facility] [place] [phone] Hypertension, unspecified type Social History Tobacco UseTypesPacks/DayYears UsedDateSmoking Tobacco: FormerCigarettesQuit: 1984Smokeless Tobacco: NeverAlcohol UseStandard Drinks/WeekCommentsYes0 (1 standard drink = 0.6 oz pure alcohol)OCCASIONALUT Safety & EnvironmentAnswerDate RecordedFear of Current or Ex-PartnerNot on file07/08/2023Emotionally AbusedNot on file07/08/2023hysically AbusedNot on file07/08/2023Sexually AbusedNot on file07/08/2023hysically or Sexually AbusedNot on file07/08/2023Sex and Gender InformationValueDate RecordedSex Assigned at TgbjbEgkt42/19/2025 3:16 PM EDT Legal JmcVdkx0211/13/2021 12:17 AM EDTGender GbwerflxNmrq12/19/2025 3:16 PM EDT Sexual OrientationHeterosexual or Hstqgqcc43/19/2025 3:16 PM EDTdocumented as of this encounter Plan of Treatment Not on file documented as of this encounter Visit Diagnoses Diagnosis Hypertension, unspecified type documented in this encounter Care Teams Team MemberRelationshipSpecialtyStart DateEnd Date Yajaira Roque FNP-C [address] [place] [address] PCP - GeneralNurse Practitioner12/05/24documented as of this encounter
--- OUTSIDE RECORDS SUMMARY | 2025-04-16 07:42 | XMS_ITS | Clinical Summary ---
Author Organization Plynked tem Address [facility] [address] [place] [address] Care Team Providers Care Claims Configuration Analyst Name Role Phone Unavailable Primary Care Provider Unavailabl e Allergies Active AllergyReactionsCriticalityNoted DateCommentsAdhesive Tape-Silicones 01/19/20191754Bjsiis32/05/2019 Medications MedicationSigDispense QuantityRefillsLast FilledStart DateEnd DateStatus glimepiride (AMARYL) 2 mg tablet Indications:Type 2 diabetes mellitus without complication, without long-term current use of insulin ([facility])Take 1 tablet (2 mg total) by mouth [...] (six) hours as needed for muscle spasms.Active iymmfyobsp-sszuhvgibc-feb-cod (FIORICET WITH CODEINE) [id number] mg per capsule Take 1 capsule by [...] mouth daily.Active Active Problems ProblemNoted DateDiagnosed DatePrevent[facility]/29[facility] Assessment & Plan (01/29/2019 8:01 PM EDT): DATE WHEN VACCINE ------- --FLU YRLY IN FALL --TETANUS Q 10 YRS godpe0539 --HZ ONCE AGE 59 Needs 2019 --PREVNAR [...] arb/arti, statin On arb, asa, statin Seasonal twxdfvtly63/15/2019 Overview (01/29/2019): flnoase CAD (coronary artery disease)01/29/2019 [...] Hearing Aids Hyperlipidemia Overview (01/29/2019): crestor , [place] 3 Hypertension Overview (01/29/2019): Amlodipine, avapro Migraines Overview (01/29/2019): fioricet with codiene, depakote Neuropathy Overview (01/29/2019): feet / DM / gabapentin NPH (normal pressure hydrocephalus) Overview (01/29/2019): vp analytics shunt Osteoarthritis Overview (01/29/2019): Mobic, tyenol, zanaflex PacemakerPeripheral edema Overview (01/29/2019): lasix Prostate cancerSkin cancerUrine incontinence Overview (01/29/2019): post prostate suregery / 2 urethral valve surgeries Insomnia Overview (01/29/2019): ambien Cardiac dysrhythmia Overview (01/29/2019): Pacemaker, plavix, asa, sotalol Resolved Problems ProblemNoted DateDiagnosed DateResolved HyrqKkqscmnwjxdznd24/15/2019 Overview (01/29/2019): colonoscopy Immunizations ImmunizationAdministration DatesNext DueInfluenza, Jnivqxunhjw68/08/2018 Pneumococcal Pasengazh98/16/2014 Family History Medical HistoryRelationNameCommentsCOPDMotherHypertensionMotherKidney failure MotherRelationNameStatusCommentsFatherDeceased (Age 98)old age , glaucomaMother (Age 88)liver failure, CHF ESRD dialysis Social History Tobacco UseTypesPacks/DayYears UsedDateSmoking Tobacco: FormerCigarettesPipe CigarsSmokeless Tobacco: FormerSnuff, Chew Tobacco Cessation:Counseling Given: Yes Alcohol UseStandard Drinks/WeekCommentsNot Currently0 (1 standard drink = 0.6 oz pure alcohol)RARELYChildcareAnswerDate IiemchbeHforndbnlDxgpazg53/28/2019 EmploymentAnswerDate LmijbwsdSjekvdphwyMqhhrdl06/28/2019Purpose - LifeAnswerDate RecordedPurpose and direction in zywsKgyezph24/11/2021ex and Gender Information ValueDate RecordedSex Assigned at BirthNot on fileLegal EdtVmot5701/11/2019 11:13 AM EDTGender IdentityNot on fileSexual OrientationNot on file Last Filed Vital Signs Vital SignReadingTime TakenCommentsBlood Zjnumcbj813/7409 2:35 PM EDT Veeog480101/19/2019 2:35 PM GRGAyrleznqxib68.3 ??C (97.4 ??F)01/19/2019 2:35 PM EDTRespiratory Rhek0965 2:35 PM EDTOxygen Ybcupbgpmg50%01/19/2019 2:35 PM EDTInhaled Oxygen Concentration--Qwrvex80.2 kg (203 lb 4.8 oz)01/19/2019 2:35 PM EDTHeight--Body Mass Index-- Plan of Treatment Health MaintenanceDue DateLast DoneCommentsDepression Ugcyijdic10/15/1952Tobacco Wncnchhox40/15/1952DTaP,Tdap and Td Vaccines (1 - Tdap)10/29/1958Zoster (Shingles) Vaccine (1 of 2)10/29/1958Fall Risk Smrrnnebc01/15/2005RSV ( or age 60+ yrs) (1 - 1-dose 75+ series)10/29/2014Influenza Swlwifj1001/15/2025 01/22/2018 Medical Devices Not on file Insurance
--- OUTSIDE RECORDS SUMMARY | 2025-04-16 07:42 | XMS_ITS | Clinical Summary ---
Author Organization [facility] Address [address] [place] [address] Phone Care Team Providers Care Supervisor [employer] Name Role Phone Demetrius Mirza MD Primary Care Provider [phone] Allergies Active AllergyReactionsCriticalityNoted OkccVxtykbuaFbkavclrFuwkHds25/12/2024 Adhesive Tape-XzgllkehwNbrfTjb52/05/2019NiacinHives,Itching,Tkuxnnp8701/19/2019 Medications MedicationSigDispense QuantityRefillsLast FilledStart DateEnd DateStatus amLODIPine (Norvasc) 5 mg tablet Take 1 tablet (5 mg) by mouth once daily.02/21/2024ctive aspirin 81 mg EC tablet Take 1 tablet (81 mg) by mouth once daily.Active sdwdudkjgq-pxqcuxqaawvro-dphg 50-325-40 mg tablet Take 1 tablet by [...] 1 each.Active Active Problems ProblemNoted DateDiagnosed DatePrimary auogwntuphmx61/26/2024oronary artery disease involving autologous artery coronary bypass graft05/11/2024acemaker 05/11/2024Stented coronary molpzz5805/11/2024Ventricular cxutywacwih51/26/2024OSA (obstructive sleep apnea)05/11/2024Gastroesophageal reflux vfyibno5705/11/2024 Ypbijevzr79/26/2024iabetes mellitus, type Oral lvxeyl2204/07/2024 Malignant neoplasm of floor of mouth04/07/2024 Family History Medical HistoryRelationNameCommentsCancerFatherPaul J BauerHearing lossFather Daniel Choudhury BauerVision lossMaternal GrandfatherGeorge SmithHypertensionMaternal GrandmotherEdna SmithAsthmaMotherDoris M BauerHypertensionMotherDoris M Bennett Vision lossOtherAnna BremmserHypertensionPaternal GrandmotherKatherine Bennett Vision lossPaternal GrandmotherKatherine BauerCancerSisterJudy ReisigMotion SicknessSisterJudy ReisigRelationNameStatusCommentsFatherPaul J BauerAlive Maternal GrandfatherGeorge SmithAliveMaternal GrandmotherEdna SmithAliveMother Estee M BauerAliveOtherAnna BremmserAlivePaternal GrandmotherKatherine Bennett AliveSisterJudy ReisigAlive Social History Tobacco UseTypesPacks/DayYears UsedDateSmoking Tobacco: TiktlwBxsdxginzp823Xmns: 05/17/1983Smokeless Tobacco: Former Tobacco Cessation:Counseling Given: No Alcohol UseStandard Drinks/WeekCommentsYes2 (1 standard drink = 0.6 oz pure alcohol)or less or weekPHQ-2AnswerDate RecordedPatient Health Questionnaire-2 Cmpgc001Sex and Gender InformationValueDate RecordedSex Assigned at BirthNot on fileLegal DpnUalt27/25/2022 9:24 AM ESTGender EqduuxzfPcqn94/26/2024 5:56 AM ESTSexual StreojokbcpDahktzjg21/26/2024 5:56 AM EST Last Filed Vital Signs Vital SignReadingTime TakenCommentsBlood Tskblebw755/69012/11/2024 1:30 PM EDT Kfyxc340406/05/2024 2:13 PM FPBQiuakrzexol20 ??C (96.8 ??F)09/11/2024 1:07 PM EDT Respiratory Hjfx619806/05/2024 2:13 PM ESTOxygen Hdigoqtiit67%06/05/2024 2:13 PM ESTInhaled Oxygen Concentration--Eujhny96.7 kg (160 lb 2.6 oz)12/11/2024 1:30 PM TWLQxeyxi797.1 cm (5' 5 )09/11/2024 1:07 PM EDTBody Mass Index26.65009/11/2024 1:07 PM EDT Plan of Treatment DateTypeDepartmentCare Team (Latest Contact Info)Okmbitmyycp52/23/2026 1:30 PM ESTOffice Visit [facility] [address] [place] [address] [place] [address] [place], [place] [id number] Health MaintenanceDue DateLast DoneCommentsDiabetes: Hemoglobin A1C1939 Diabetes: Urine Protein Jxzyydmzd42/15/8136Qckzauomduzkis37/15/1940Lipid Panel 1940Medicare Annual Wellness Visit (AWV)1939Diabetes: Retinopathy Byvyjlkns32/15/1950DTaP/Tdap/Td Vaccines (1 - Tdap)10/29/1961Influenza Vaccine (#1)512/06/2023, 04/12/2023, 02/18/2021, Additional history exists COVID-19 Vaccine ( season)/, 11/25/2021, 03/06/2021, Additional history existsCreatinine Level511/ Potassium Level/4Pneumococcal VqigsxtNfrfrdhpa22/08/2024, 01/30/2014Zoster NqxzpapiYpedubcoo79/25/2024, 4RSV High Risk: (Elderly (60+) or Population)Ucwvhfrke81/06/2024HIB VaccinesAged OutNo longer eligible based on patient's [...] topic Procedures Procedure NamePriorityDate/TimeAssociated DiagnosisCommentsBASIC METABOLIC PANEL Holbsyv4904/11/2024 9:14 AM EST Oral lesion 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) from Last 3 Months or Most Recently Relevant to Health Maintenance Results * (ABNORMAL) Basic Metabolic Panel (04/11/2024 9:14 AM EST)ComponentValueRef RangeTest MethodAnalysis TimePerformed AtPathologist JiqdyxyxyFopbljq496(H)74 - 99 mg/dL LAB CHEMISTRY METHOD 04/11/2024 11:09 AM [facility] FIFPiurxc863077 - 145 mmol/L LAB CHEMISTRY METHOD 04/11/2024 11:09 AM [facility] LABPotassium4.53.5 - 5.3 mmol/L LAB CHEMISTRY METHOD 04/11/2024 11:09 AM [facility] UIXRzkeevmo70438 - 107 mmol/L LAB CHEMISTRY METHOD 04/11/2024 11:09 AM [facility] JOTRrurksclmjx8131 - 32 mmol/L LAB CHEMISTRY METHOD 04/11/2024 11:09 AM [facility] LABAnion Dat2267 - 20 mmol/L LAB CHEMISTRY METHOD 04/11/2024 11:09 AM [facility] LABUrea Zekogkgz665 - 23 mg/dL LAB CHEMISTRY METHOD 04/11/2024 11:09 AM [facility] LABCreatinine0.960.50 - 1.30 mg/dL LAB CHEMISTRY METHOD 04/11/2024 11:09 AM [facility] FMQrLIB16>60 mL/min/1.73m*2 LAB CHEMISTRY METHOD 04/11/2024 11:09 AM [facility] LABComment: Calculations of estimated GFR are performed using the 2020 CKD-EPI Study Refit equation without therace variable for the IDMS-Traceable creatinine methods. https://jasn.asnjournals.org/content//ASN.1570670191 Calcium9.98.6 - 10.6 mg/dL LAB CHEMISTRY METHOD 04/11/2024 11:09 AM [facility] LABSpecimen (Source)Anatomical Location / LateralityCollection Method / VolumeCollection TimeReceived TimeBloodVenous blood specimen / UnknownVenipuncture / Dcazspb3704/11/2024 9:14 AM EST04/11/2024 10:37 AM EST Narrative Authorizing ProviderResult TypeResult StatusTracy Adrian Max [facility] BLOOD ORDERABLESFinal ResultPerforming OrganizationAddressCity/State/ZIP CodePhone Number [facility] [address] [facility] [place][Note 2] [address] [phone] from Last 3 Months or Most Recently Relevant to Health Maintenance Insurance Advance Directives For more information, please contact: [phone] (Available ) TypeDate RecordedPatient RepresentativeExplanationHealthcare Power of Atty 05/11/2024Living Will05/11/2024 Care Teams Team MemberRelationshipSpecialtyStart DateEnd Date Demetrius Mirza MD [address] [facility] [place] [address] PCP - GeneralFamily Oimkyond52/26/24
--- OUTSIDE RECORDS SUMMARY | 2025-04-16 07:42 | XMS_ITS | CCD ---
Author Organization [facility]ini[facility] Care Team Providers Care Electrician Supervisor Substation Name Role Phone NUNORUTH BAEAB A Admitting Unavailable ELRUTH BAEAB Lyssa Attending Unavailable DEMETRIUS COOPER Referring Unavailable DEMETRIUS COOPER Primary Care Unavailable Param Cosme Attending Provider [phone] Demetrius Cooper Primary Care Provider Param Cosme Attending Provider [phone] Demetrius Cooper Primary Care Provider Leti Garcia Unavailable MG LONDON Primary Care Physician KAT Westfall Attending Provider [phone] MD Mg London Primary Care Provider KAT Westfall Attending Provider [phone] MD Mg [place] Primary Care Provider MD Erwin Salazar Attending Provider Erwin Salazar Unavailable MARCE Hardy Attending Provider [phone] KAT Westfall Other Provider Demetrius Cooper. Primary Care Physician [phone] Griselda Pennington Unavailable ALANNA HARDY Admitting Unavailable ALANNA HARDY Attending Unavailable GUERO, DR MG Omalley Primary Care Unavailable TERRIE, [...] NADERER, DR MG Omalley Primary Care Unavailable TEMPLETON, DR ERWIN Bell Consulting Unavailable ELTAHAWY, DR [...] Provider MD Demetrius Cooper Primary Care Provider [phone] MD Inez Henderson Attending Provider Esme Brunson NP Gisele Attending Provider FABIO Ruby Attending Provider [phone] [facility] MD Dem[facility]rius Cooper Primary Care Provider DAISHA Brunson Gisele Attending Provider [phone] Clarissa Corado MD Unavailable Demetrius Cooper MD Primary Care Provider Flori GARZA, [facility]. Unavailable MD Demetrius Cooper Primary Care Provider MD Luc Ham Jr Attending Provider Luc Guo MD Unavailable Demetrius Cooper MD Primary Care Provider LUC HAM Referring Unavaila ble DEMETRIUS COOPER Primary Care Unavailable VAISHALI PRINGLE Attending Unavailable Unavailable Primary Care Provider UnavailDemetrius Davila MD Primary Care Provider Demetrius Cooper MD Primary Care Provider Ramin CASON, Talib Faustin Attending Provider Mary Ly MD Referring Provider Demetrius Cooper MD Primary Care Provider Mary Ly MD Referring Provider Dennis Gray MD Attending Provider Matteo Melo MD Attending Provider [phone] Demetrius Cooper MD Primary Care Provider Debora Wild APRN Attending Provider Mary Ly MD Referring Provider Dennis Gray MD Attending Provider Mary Ly MD Referring Provider [phone] Talib Faustin MD Attending Provider [phone] Demetrius Cooper Admitting Unavailable Demetrius Cooper Attending Unavailable Demetrius Cooper Admitting Unavailable Demetrius Cooper. Attending Unavailable Demetrius Cooper E. Attending Unavailable Al-Talib Hargrove Attending Unavailabl e Jared-Talib Hargroveser Admitting Unavailabl e Mary Ly Referring Unavailable Demetrius Cooper E Primary Care [...] Care Provider Matteo Melo MD Attending Provider [phone] Debora Wild APRN Attending Provider Dennis Gray MD Attending Provider Maru Ma DO Attending Provider Mary Ly MD Referring Provider [phone] Talib Faustin MD Attending Provider Dennis Gray [...] Demetrius Cooper MD Primary Care Provider Mary Ly MD Referring Provider Talib Faustin MD Attending Provider Maru Hayes MD Emergency Provider Clarissa Corado MD Unavailable Unavailable Demetrius Cooper MD Primary Care Provider Matteo Melo MD Attending Provider Mary Ly MD Referring Provider Talib Faustin MD Attending Provider MD Demetrius Cooper Attending Unavailable MD Demetrius Cooper Attending Unavailable MD Demetrius Cooper Attending Unavailable MD Demetrius Cooper Attending Unavailable Demetrius Cooper MD Primary Care Provider [phone] Becky Crouch APRN Attending Provider Boy DEVELOPMENT VICE PRESIDENT, Gisele Attending Provider [phone] Debora Wild APRN Attending Provider Veena [...] Provider Becky Crouch APRN Attending Provider Mary Ly MD Referring Provider MARY LY Attending Unavailable LY, MARY N Referring Unavailable [facility] Primary Care Unavailable LY MARY N Admitting Unavailable LY, MARY N Attending Unavailable ROSS, DEMETRIUS JACKELYN Primary Care Unavailable LY, MARY N Admitting Unavailable LY, MARY N [facility]ending [facility]available LY, MARY N Referring Unavailable [facility] Care Unavailable LY MARY N Attending Unavailable [facility] Primary Care Unavailable LY, MARY N Referring Unavailable [facility] Primary Care Unavailable LY, MARY N Attending Unavailable [facility] Primary Care Unavailable LY, MARY N Attending Unavailable [facility] Primary Care Unavailable Josh CASON, Clarissa Unavailable MATTEO AMBROSE Attending Unavailable DENNIS GRAY Referring Unavailable ISABEL ROMANO Attending Unavailable MATTEO AMBROSE Attending Unavailable CARLOSKODINESH, VEENA H Attending Unavailable MISSY WESTFALL Attending Unavailable JED, VEENA H Attending Unavailable TIMMIS, LUC H Attending Unavailable DEMETRIUS COOPER E Referring Unavailable TIMMIS, LUC H Referring Unavailable MISYS WESTFALL Attending Unavailable TIMMIS, LUC H Attending Unavailable TIMMIS, LUC H Attending Unavailable TIMMIS, LUC H Attending Unavailable ITZKODINESH, VEENA H Attending Unavailable GELACIO PAREDES Referring Unava ilable VEENA ADKINS Attending Unavailable STACYE PATEL Referring Unavailable STACEY PATEL Attending Unavailable STACEY PATEL Referring Unavailable BOY BUITRAGO Attending Unavailable STACEY PATEL Referring Unavailable STACEY PATEL Referring Unavailable STACEY PATEL Attending Unavailable STACEY PATEL Admitting Unavailable CORIN SCHMIDT Referring Unavailable STACEY PATEL Referring Unavailable STACEY PATEL Attending Unavailable STACEY PATEL Referring Unavailable Hermes CASON, Demetrius Johnson Primary Care Provider [phone] Mary Ly MD Referring Provider Talib Faustin MD Attending Provider Mary Ly MD Referring Provider Talib Faustin MD Attending Provider Chang Russell MD Attending Provider Demetrius Cooper MD Primary Care Provider Demetrius Cooper Attending Unavailable Jared-Talib Hargrove Admitting Unavailabl e Al-Talib Hargorve Attending Unavailabl e Hermes, Demetrius E. Admitting Unavailable Ross, Demetrius E. Attending Unavailable Hermes, Demetrius EAidan Admitting Unavailable Yajaira Roque Attending Unavailable Demetruis Cooper Attending Unavailable Demetrius Cooper MD Primary Care Provider [phone] Becky Crouch APRN Attending Provider Mary Ly MD Referring Provider Talib Faustin MD Attending Provider Chang Russell MD Attending Provider Owen Armstrong MD Primary Care Provider Maru Ma Attending Unavailable Ross, Demetrius E Primary Care Unavailable Maru Ma Admitting Unavailable Pepito Galicia Attending Unavailable Ross, Demetrius E Primary Care Unavailable Pepito Galicia Admitting Unavailable Ross, Demetrius E Primary Care Unavailable Debora Wild Attending Unavailable Debora Wild Admitting Unavailable Ross, Demetrius E Primary Care Unavailable Jaiden Nance Admitting Unavailable Zeke Brennan Attending Unavailable Yash Thomas Unavailable Dennis Gray Attending Unavailable Ross, Demetrius E Primary Care Unavailable Dennis Gray Admitting Unavailable Al-Talib Hargrove Attending Unavailabl e Ross, Demetrius E Primary Care Unavailable Al-Delvin, Delvisd Ramin Admitting Unavailabl e Mary Ly Referring Unavailable Ross, Demetrius E Primary Care Unavailable Debora Wild Attending Unavailable Debora Wild Admitting Unavailable Debora Wild Attending Unavailable Ross, Demetrius E Primary Care Unavailable Debora Wild Admitting Unavailable Ross, Demetrius E Primary Care Unavailable Debora Wild Admitting Unavailable Debora Wild Attending Unavailable Chang Russell Attending Unavailable Chang Russell Admitting Unavailable Owen Armstrong Primary Care Unavailable Ross, Demetrius E Primary Care Unavailable Veena Adkins Attending Unavailable Veena Adkins Admitting Unavailable Matteo Melo Admitting Unavailable Ross, Demetrius E Primary Care Unavailable Matteo Melo Attending Unavailable Maru Hayes Attending Unavailable Hermes, Demetrius E Primary Care Unavailable Maru Hayes Admitting Unavailable Rika CASON, Surjit Montenegro Attending Unavailable Unavailable Unavailable Unavailable Allergies Allergy ClassificationReported Allergen(s)Allergy TypeDate of OnsetReaction(s) Facility (3 sources)DesonideDrug Rnszfwv34-15-9798Prn [facility] Repository (1 source)NiacinDrug Vionluq94-03-7908Lal [facility] Repository (20 sources)Adhesive agent; Translations: [adhesive]Drug rxdahuw36-26-4984fzjwAshtabula [facility] (20 sources)Niacin; Translations: [niacin]Drug Kvwvcmv10-92-4030dtdsy, Itching (finding), Itching, UnknownGeneral Surgery [place] (20 sources)Adhesive bandage; Translations: [Adhesive Bandage]Allergy to substanceEruption of skin (disorder)[facility] [place] (5 sources)NiacinDrug AllergyhiMer[facility], [facility] Other (2 sources)Niaspan Starter PackDrug allergy (disorder)42-72-4605Wgr [facility] Repository (15 sources)Adhesive Tape-Silicones; Translations: [ADHESIVE TAPE-SILICONES]Drug Wggixnn58-59-3682AmipOebwgllsm Clinic (20 sources)NiacinDrug Twjevci07-22-0147Cjpnxxp, [facility] (20 sources)Wound Dressing AdhesiveDrug Zvoziih35-37-7325XkvndzvNXWX Healthcare (4 sources)Niacin; Translations: [Niaspan ER][facility] Rep[facility] (2 sources)NiacinDrug Cjxtpzb50-50-9557JbromqrshCommunity [facility] Repository Medications Current Medications MedicationDrug Class(es)DatesSig (Normalized)Sig (Original)acetaminophen 325 mg / butalbital 50 mg / caffeine 40 mg oral capsule (20 sources)Barbiturate, Central Nervous System Stimulant, MethylxanthineStart: 24-59-8963soiy 1 capsule by mouth every four hours for headacheEsgic 325 mg-50 mg-40 mg oral capsule 1 cap(s), Oral, q4hr for headache, 60 cap(s), Refill(s) 1, [id number], 160, cm, 11/29/23 10:29:00 EDT, Height/Length Dosing, 78.5, kg, 11/29/23 10:29:00 EDT, Weight Dosing Start Date: 11/29/23 Status: Ordered Quantity: 60.0 Unit: cap(s) Repeat number: 2Start: 12-15-2022 End: 72-52-3112jddy 1 tablet by mouth every four hours as needed rrynyganlu-bzmynpodrgqdq-nlqh 50-325-40 mg tablet Take 1 tablet by mouth every 4 hours if needed. 12/15/2022 ActiveStart: 63-44-9670QASF/butalbital/caffeine 325 mg-50 mg-40 mg Tab Refill(s) 0, Headache Start Date: 12/15/22 Status: Ordered Comment on above:Take 1 tablet by mouth every 4 hours as needed.Albuterol (Eqv- ProAir HFA) 90 mcg/inh inhalation aerosol (16 sources)Start: 38-01-6654Wumdjtqrl (Eqv-ProAir HFA) 90 mcg/inh inhalation aerosol See Instructions, 17 gm, Refill(s) 6, USE 2 INHALATIONS BY MOUTH EVERY 6 HOURS, [facility] ([facility]), 163, cm, 11/04/22 15:03:00 EDT, Height/Length Dosing, 76, kg, 11/04/22 15:03:00 EDT, Weight Dosing Start Date: 11/09/22Status: Ordered Quantity: 17.0 Unit: g Repeat number: 1Start: 64-60-9962Cpsfkzmzv (Eqv-ProAir HFA) 90 mcg/inh inhalation aerosol See Instructions, 17 gm, Refill(s) 6, USE 2 INHALATIONS BY MOUTH EVERY 6 HOURS, [facility] ([facility]), 163, cm, 11/04/22 15:03:00 EDT, Height/Length Dosing, 76, kg, 11/04/22 15:03:00 EDT, Weight Dosing Start Date: 11/09/22Status: Ordered{1 (Ascorbic Acid 7540 MG / POLYETHYLENE GLYCOL 3350 32402 MG / Potassium Chloride 1200 MG / SodiumAscorbate 44634 MG / Sodium Chloride 3200 MG Powder for Oral Solution) / 1 (POLYETHYLENE GLYCOL 3350 857252 MG / Potassium Chloride 1000 MG / Sodium Chlori (5 sources)Osmotic Laxative, Vitamin CStart: 51-55-0015Meblsj oral powder for reconstitution See Instructions, 1 EA, Refill(s) 0, Prior to colonoscopy., [facility][id number], 163, cm, 12/15/22 12:03:00 EDT, Height/Length Dosing, 73.3, kg, 12/16/2311:03:00 EDT, Weight Dosing Start Date: 12/15/22 Status: Ordered Aspir 81 (18 sources)Start: 04-42-2627voqr 81 mg by mouth once dailyAspir 81 81 mg, Oral, Daily, Refills(s) 0, Prophylaxis Start Date: 04/24/20 Status: Ordered Repeat nu mber: 1Start: 05-51-6665hxrw 81 mg by mouth once dailyAspir 81 81 mg, Oral, Daily, Refills(s) 0, Prophylaxis Start Date: 04/24/20 Status: OrderedStart: 90-21-1610pkbp 1 mg by mouth once dailyAspir 81 mg, Oral, Daily, Refills(s) 0, Prophylaxis Start Date: 04/24/20 Status: OrderedAspir-81 (5 sources)Aspir-81 Activeazithromycin 250 mg oral tablet (4 sources)Macrolide AntimicrobialStart: 07-22-7254Hfigoevxsrkp 250 MG 2 tablet on the first day, then 1 tablet daily for 4 days Orally Once a day for5 day(s) September, ActiveButalbital-Acetaminophen (5 sources)Butalbital-Acetaminophen Activecephalexin 250 mg oral capsule (1 source)Cephalosporin AntibacterialStart: 61-53-3988udpl 1 capsule by mouth twice dailyKeflex 250 mg Cap 250 mg = 1 cap(s), Oral, BID, Start 3 days before procedure, # 10 cap(s), Refills(s) 0, Pharmacy: [facility] #[id number], 167, cm, 04/27/22 8:46:00 EST, Height/Length Dosing, 87.1, kg, 04/27/22 8:46:00 EST, Weight Dosing Start Date: 04/27/22 Status: Orderedcholestyramine 4 g/5 g Oral Pwdr (1 source)Start: 58-08-7335cgecyhjinykiis 4 g/5 g Oral Pwdr 1 packet(s), Oral, TID, 90 EA, Refill(s) 0, [facility] ([facility] ), 167.6, cm, 08/24/22 8:10:00 EDT, Height/Length Dosing, 83.4, kg, 08/24/22 8:10:00 EDT, Weight Dosing Start Date: 08/24/22 Status: Orderedsugar-free cholestyramine resin 4000 mg powder for oral suspension (7 sources)Bile Acid SequestrantStart: 92-16-2813njdqmzkfdycqsr 4 g/5 g Oral Pwdr 5 gram, 1 EA, Oral, BID, 630 gm, Refill(s) 0, one scoop BID 90 daysupply, [facility] #[id number], 162, cm, 08/30/23 10:00:00 EDT, Height/Length Dosing, 78.4, kg, 08/30/23 10:00:00 EDT, Weight Dosing Start Date: 09/06/23 Status: OrderedStart: 05-25-2023 End: 83-27-2294xodk 4 g by mouth once dailyQuestran 4 g/9 g oral powder 4 gm, Oral, Daily, X 90 day(s), # 90 packet(s), Refills(s) 0, Pharmacy: [facility] #[id number], 163, cm, 05/25/23 12:33:00 EST, Height/Length Dosing, 79.8, kg, 05/25/23 12:33:00 EST, Weight Dosing Start Date: 05/25/23 Stop Date: 08/23/23 Status: OrderedDicyclomine (3 sources)AnticholinergicDicyclomine HCl Wlgudq29 hr fentaNYL 0.012 mg/hr transdermal system (20 sources)Opioid AgonistStart: 67-90-0219ijcwtRKN 12 mcg/hr Transderm ER Film 1 patch(es), Topical, q72hr, Refill(s) 0 Start Date: 08/22/24 Status: Ordered Repeat number: 1Start: 08-02-2024 End: 39-49-0441Iobajfkp 12 mcg/hr patch 72 hour Discontinued 1 PATCH TRANSDERML Every 72 hours 5 15 0 August 16, 2024 September 11, 2024 9:11am 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, unspecified Ma lignant neoplasm of oropharynx, unspecifiedStart: 06-05-2024 End: 44-21-2077yfsynjxwlkm, Once PRN Procedure, Starting on Wed06/05/24 at 1345, For 1 dose, Intraprocedureferrous sulfate 325 mg oral tablet (3 sources)Start: 02-02-5406jfvt 1 tablet by mouth twice dailyFish Oils (7 sources)Start: 03-61-8369Wfxcm-3 Fish Oil Oral, Daily, Refills(s) 0, Prophylaxis Start Date: 11/04/22 Status: OrderedStart: 66-99-5576Egamm-3 Fish Oil Oral, Daily, Refills(s) 0 Start Date: 11/04/22 Status: Orderedfluticasone 0.05 mg/inh Nasal [place] (1 source)Start: 96-16-8607ffzzkxysuxx 0.05 mg/inh Nasal [place] Daily, Refill(s) 0 Start Date: 04/24/20 Status: Orderedgabapentin 600 mg oral tablet (20 sources)Anti-epileptic AgentStart: 34-45-1327dgqh 1 tablet by mouth three times dailygabapentin 600 mg Tab 600 mg, Oral, TID, # 270 EA, Refills(s) 0, Pharmacy: [facility], 163, cm, 02/25/23 13:29:00 EDT, Height/Length Dosing, 78.8, kg, 02/25/23 13:29:00 EDT, Weight Dosing Start Date: 03/09/23 Status: OrderedGabapentin 300 MG Oral for 90 ActiveComment on above:Take 1 tablet by mouth.glimepiride 2 mg oral tablet (6 sources)SulfonylureaStart: 37-34-3599uucrqibvqxq (AMARYL) 2 mg tablet Take 2 mg by mouth. 01/19/2019 ActiveComment on above:Take 2 mg by mouth. Hc/Dph/Nystat/[place]/Fla Monsalve (1 source)Start: 93-85-8669urjt 10 mL by mouth four times daily as needed Hc/Dph/Nystat/L[place]/Fla Monsalve Hc/Dph/Nystat/Lido/[place] Monsalve, Swish and swallow with 10ml by mouth four times daily as needed FOR mucositis Start Date: 08/22/24 Status: Ordered Repeat number: 1iv contrast (will be provided with radiology test) (3 sources)Start: 08-56-1989pp contrast (will be provided with radiology test) [...] 2 mg oral tablet (20 sources)Opioid AgonistStart: 58-92-9222xgpb 1 tablet by mouth every four hoursloperamide [...] ActivemethylPREDNISolone 4 mg oral tablet (4 sources)CorticosteroidStart: 19-80-0596Jqcagk 4 MG as directed Orally as directed for 6 days September, ActiveMisc Medication (6 sources)Start: 38-81-0863Oxql Medication Transdermal Therapeutics up to four times per day: Meloxicam 0.5%/ Doxepin 3%/ Amantidine 3%/Dextromethorphan 2%/ Lidocaine 2% Start Date: 11/08/23 Status: Ordered Repeat number: 1Start: 63-38-8661Uqvv Medication Transdermal Therapeutics up to four times [...] morning. ActiveMultivitamin (Multiple Vitamins) tablet (20 sources)Start: 53-17-1764eslb 1 tablet by mouth once dailyStart: 06-14-2024 take 1 tablet by mouth once dailyMultivitamin (Multiple Vitamins) tablet Active 1 TAB PO Daily June 14, 2024 1:00am Complies with drug therapyStart: 87-43-2062unsj 1 tablet by mouth once dailyStart: 84-81-1450knsv 1 tablet by mouth once dailyMultivitamin (Multiple Vitamins) tablet Active 1 TAB PO Daily June 14, 2024 1:00amStart: 98-61-4069wwkf 1 tablet by mouth once daily Multivitamin (Multiple Vitamins) tablet Active 1 TAB PO Daily June 14, 2024 12:00amMultivitamin preparation (5 sources)Multivitamin Activemultivitamin tablet (7 sources)take 1 tablet by mouth once dailymultivitamin tablet Take 1 tablet by mouth once daily. ActiveMultivitamin, Therapeutic w/ Minerals (18 sources)Start: 59-11-4456Gbbkgrwworlw, Therapeutic w/ Minerals Oral, Daily, Refill(s) 0, Prophylaxis Start Date: 04/24/20 Status: Ordered Repeat number: 1 Start: 74-04-6352Waqdycnfffzj, Therapeutic w/ Minerals Oral, Daily, Refill(s) 0, Prophylaxis Start Date: 04/24/20 Status: OrderedOmega 3 (5 sources)[place] 3 Activeomega-3 acid ethyl esters (group home) 1000 mg oral capsule (20 sources)take 1 capsule by mouth in the morningomega-3 acid ethyl esters (Lovaza) 1 g capsule Take 1 g by mouth in the morning and 1 g before bedtime. Activepantoprazole 20 mg delayed release oral tablet (7 sources)Proton Pump InhibitorStart: 97-78-8243lbca 1 mg by mouth once daily Pantoprazole [address] Tab mg tab(s), Oral, Daily, Refills(s) 0 Start Date: 10/31/20 Status: OrderedPantoprazole Sodium Not-Taking/PRNPantoprazole Sodium Not-TakingPantoprazole Sodium Activepolyethylene glycol 3350 34509 mg powder for oral solution (10 sources)Osmotic LaxativeStart: 54-91-9424Ooggyciso Chloride (12 sources)Start: 00-23-3546wqrh 1 tablet by mouth twice dailyPotassium Chloride (Vor-Jblz-Cpn M20) 20 mEq oral tablet, extended release TAKE 1 TABLET BY MOUTH TWICE DAILY Start Date: 08/30/24 Status: Ordered Repeat number: 1Start: 08-23-2024 End: 04-34-1402Lsqpxzypd Chloride (Klor-Con M20) 20 mEq tablet,ER particles/crystals Discontinued 20 MEQ PO Twice daily 20 0 August 22, 2024 11:00pm October 03, 2024 9:25amrimegepant 75 mg disintegrating oral tablet (20 sources)Start: 02-16-2024 End: 82-26-7975Dyclnskgch Sulfate (Nurtec) 75 MG tablet dispersible Indications: Migraine without aura and withoutstatus migrainosus, not intractable 1 tab PO prn migraine. 16 tablet 2 02/16/2024 ActiveSenna Leaves (1 source)Start: 27-89-9085bnpv 1 tablet by mouth twice daily as needed for constipationSenna 8.6 mg oral tablet TAKE 1 TABLET BY MOUTH TWICE DAILY NEEDED FOR CONSTIPATION Start Date: 08/22/24 Status: Ordered Repeat number: 1 Sennosides (Black-Draught Lax-Senna) 8.6 mg tablet (8 sources)Start: 81-58-3387pdnj 1 tablet by mouth once daily as needed for constipationSennosides (Black-Draught Lax-Senna) 8.6 mg tablet Active 8.6 MG PO Twice daily as needed for constipation 60 30 August 02, 2024 12:00am Use if no bowel movement dailysilver sulfADIAZINE 10 mg/ml topical cream (14 sources)Sulfonamide AntibacterialStart: 17-90-2989RJC 1% topical cream 1 lenin, Topical, BID, Refill(s) 0, apply to neck at affected areas Start Date: Status: Ordered Repeat number: 1Start: 08-18-2024 End: 49-52-4035Ukklim Sulfadiazine (Silvadene) 1 % cream Discontinued 1 APPLIC TOPICAL Twice daily 50 0 August 11:00pm October 03, 2024 9:25am Squamous cell carcinoma of oropharynx Malignant neoplasm of oropharynx, unspecified Apply to open areas on radiation site, twice a day, until healed.traZODone hydrochloride 50 mg oral tablet (1 source)Serotonin Reuptake InhibitorStart: 61-13-0502dlgn 1 mg by mouth once daily at [...] Central Nervous System Stimulant, MethylxanthineStart: 06-14-2024 End: 26-32-6156sded 1 tablet by mouth every four to six hours as needed Riasnnv-Xgbciwcptrjyj-Sdpomcwb (Excedrin Migraine) 250-250-65 mg tablet Discontinued 1 TAB PO EVERY4-6 HOURS as needed July 20, 2024 12:00am July 26, 2024 7:40amacetaminophen 500 mg / diphenhydrAMINE hydrochloride 25 mg oral tablet (20 sources)Histamine-1 Receptor AntagonistStart: 06-14-2024 End: 76-99-7648jyfb 2 tablets by mouth once daily at bedtime as needed Diphenhydramine-Acetaminophen (Tylenol Pm Extra Strength) 25-500 mg tablet Discontinued 2 TAB PO Daily at bedtime as needed July 20, 2024 12:00am July 26, 2024 7:40amStart: 27-06-0662klop 1 tablet by mouth once daily at [...] oral tablet (20 sources)Opioid AgonistStart: 07-20-2024 End: 88-04-8472rqvw 1 tablet by mouth twice daily as neededHydrocodone- Acetaminophen 5-325 mg tablet Discontinued 1 TAB PO Twice daily as needed 0 July 20, 2024 12:00am July 26, 2024 7:41amStart: 07-17-2024 End: 42-48-2489sfuw 1 tablet by mouth every twelve hours as needed for pain Hydrocodone-Acetaminophen 5-325 mg tablet Discontinued 1 TAB PO Every 12 hours as needed for pain 42 0 July 17, 2024 August 09, 2024 8:43am Other acute postprocedural pain Other acute postprocedural tzqb266 actuat albuterol 0.09 mg/actuat dry powder inhaler (20 sources)beta2-Adrenergic AgonistStart: 06-14-2024 End: 24-72-7731Gifjlpayt Sulfate 90 mcg/actuation aerosol powdr breath activated Discontinued 1 INH INHALATION EVERY 4-6 HOURS as needed July 20, 2024 12:00am July 26, 2024 7:39amamLODIPine 5 mg oral tablet (20 sources)Dihydropyridine Calcium Channel BlockerStart: 04-24-2020 End: 31-08-7022lkzn 1 tablet by mouth once dailyAmlodipine 5 mg tablet Discontinued 5 MG PO Daily July 20, 2024 12:00am July 26, 2024 7:39am Comment on above:Take 5 mg by mouth.aspirin 81 mg chewable tablet (20 sources)Platelet Aggregation Inhibitor, Nonsteroidal Anti-inflammatory Drug Start: 06-14-2024 End: 74-71-1916lsoa 1 tablet by mouth once dailyAspirin 81 mg tablet,chewable Discontinued 81 MG PO Daily July 20, 2024 12:00am July 26, 2024 7:39amtake 1 tablet by mouth once dailyaspirin 81 MG EC tablet Take 81 mg by mouth Daily ActiveComment on above:Take 81 mg by mouth.cefpodoxime 200 mg oral tablet (12 sources)Cephalosporin AntibacterialStart: 08-21-2024 End: 37-60-1775laho 1 tablet by mouth twice daily at mealtimeCefpodoxime 200 mg tablet Discontinued 200 MG PO Twice daily 6 3 0 August 20, 2024 11:00pm October 03, 2024 9:22am must administer with a meal/foodclopidogrel 75 mg oral tablet (20 sources)P2Y12 Platelet InhibitorStart: 04-24-2020 End: 78-86-9934nqpv 1 tablet by mouth once dailyClopidogrel (Plavix) 75 mg tablet Discontinued 75 MG PO Daily July 20, 2024 12:00am July 26, 2024 7:40amclotrimazole 10 mg oral lozenge (15 sources)Azole AntifungalStart: 08-03-2024 End: 53-16-8391Pjfcoougigys 10 mg joyce Discontinued 10 MG MUCOUS MEM Five times daily 70 14 0 August 02, 2024 11:00pm August 17, 2024 10:32am Candidiasis of mouth Candidal stomatitis thrush use for 10 days, if symptoms persist, then complete the 14 days dispenseddexamethasone 6 mg oral tablet (6 sources)CorticosteroidStart: 68-54-9500pyke 1 tablet by mouth every twenty- four hoursdexAMETHasone 6 MG 1 tablet Orally Once a day for 5 day(s) Nov, Not-Taking/PRNDocusate (5 sources)Docusate Sodium Not-Taking/PRNDocusate Sodium Not-TakingDocusate Sodium Activedorzolamide 20 mg/ml ophthalmic solution (20 sources)Carbonic Anhydrase InhibitorStart: 07-20-2024 End: 28-02-2826ojpb 1 drop(s) into the eye(s) three times dailyDorzolamide 2 % drops Discontinued 1 DROPS EYE-BOTH Three times daily July 20, 2024 12:00am 2024 7:40amStart: 07-20-2024 End: 12-71-1010liks 1 drop(s) into the eye(s) three times dailyDorzolamide 2 % drops Discontinued 1 DROPS EYE-BOTH Three times daily July 20, 2024 1:00am July 26, 2024 8:40amStart: 36-91-1063gscq 1 drop(s) into the eye(s) three times dailydorzolamide (Trusopt) 2 % ophthalmic solution Administer 1 drop into both eyes 3 times a day. 07/27/2023 ActiveStart: 86-63-1838uxnm 1 drop(s) into the eye(s) twice dailyStart: 54-84-3072Gofoihreayz 2 % drops Active DROPS OPHTHALMIC July 26, 2023 11:00pmStart: 26-32-0063Youdajgobos Active DROPS OPHTHALMIC July 27, 2023 12:00amStart: 98-13-3056dnwk 1 drop(s) into the eye(s) twice dailydorzolamide ophthalmic 2% solution 1 drop(s), OPTH, BID, Refill(s) 0, each eye Start Date: 04/24/20 Status: Ordered Repeat number: 1Start: 47-07-4012lcqq 1 drop(s) into the eye(s) twice dailydorzolamide [...] oral capsule (20 sources)Tetracycline-class DrugStart: 07-12-2024 End: 99-29-8758xnwi 1 capsule by mouth twice dailyDoxycycline Monohydrate 100 mg capsule Discontinued 100 MG PO Twice daily July 20, 2024 12:00am July 26, 2024 7:40amfamotidine 20 mg oral tablet (20 sources)Histamine-2 Receptor AntagonistStart: 07-27-2023 End: 16-99-5354kgyb 1 tablet by mouth once dailyFamotidine 20 mg tablet Discontinued 20 MG PO Daily July 20, 2024 12:00am July 26, 2024 7:41am fluticasone propionate 0.05 mg/actuat metered dose nasal spray (20 sources)CorticosteroidStart: 57-14-6165keajincakgm Nasal 0.05 mg/inh [place] See Instructions, 16 gm, Refill(s) 0, USE 1 SPRAY IN BOTH NOSTRILS TWICE DAILY, [facility], 160, cm, 01/10/24 9:43:00 EDT, Height/Length Dosing, 77.8, kg, 01/10/24 9:43:00 EDT, Weight Dosing Start Date: 01/18/24 Status: Ordered Quantity: 16.0 Unit: g Repeatnumber: 1Start: 08-24-2022 End: 36-22-2481sfgs 1 spray(s) nasal route once dailyFluticasone Propionate 50 mcg/actuation spray,suspension Discontinued 2 SPRAY INTRANASAL Daily July 20, 2024 12:00am July 26, 2024 7:41am administer into each nostrilStart: 86-15-6454omtbbepqprk (FLONASE) 50 mcg/actuation nasal spray 1 [place]. 08/24/2022 ActiveStart: 45-07-7805nkpb 1 spray(s) nasal route twice dailyFlonase 0.05 mg/inh [place] 1 spray(s), Nasal, BID, 16 gram, Refill(s) 0, each nostril, [facility] ([employer] [facility] ), 167.6, cm, 08/24/22 8:10:00 EDT, Height/Length Dosing, 83.4, kg, 08/24/22 8:10:00 EDT, Weight Dosing Start Date: 08/24/22 Status: OrderedStart: 45-60-9820Hauer: 88-60-4412ujhu 50 ug by inhalation twice dailyfluticasone propionate [...] MCG/ACT Nasal for 30 ActiveComment on above:1 [place].furosemide 20 mg oral tablet (20 sources)Loop DiureticStart: 04-24-2020 End: 54-95-6579uogb 1 tablet by mouth once daily in the morningFurosemide 20 mg tablet Discontinued 20 MG PO Every morning July 20, 2024 12:00am July 26, 2024 7:41amFurosemide ActiveComment on above:Take 20 mg by mouth.irbesartan 300 mg oral tablet (20 sources)Angiotensin 2 Receptor BlockerStart: 04-24-2020 End: 60-03-2142dotg 1 tablet by mouth once daily in the morningIrbesartan 300 mg tablet Discontinued 300 MG PO Every morning July 20, 2024 12:00am July 26, 2024 7:41amComment on above:Take 300 mg by mouth.24 hr isosorbide mononitrate 30 mg extended release oral tablet (20 sources)Nitrate VasodilatorStart: 95-35-3944chva 1 tablet by mouth every twenty-four hoursIsosorbide Mononitrate 30 mg tablet extended release 24 hr Active MG PO July 26, 2023 11:00pmStart: 04-24-2020 End: 06-95-9473qqtf 1 tablet by mouth once daily in the morning, then take 1 tablet by mouth every twenty-four hoursIsosorbide Mononitrate 30 mg tablet extended release 24 hr Discontinued 30 MG PO Every morning July 26, 2023 11:00pm July 26, 2024 7:42amComment on above:Take 30 mg by mouth.lactulose 667 mg/ml oral solution (16 sources)Osmotic LaxativeStart: 08-02-2024 End: 29-61-8115lqes 10 g by mouth once daily for constipationLactulose 10 gram/15 mL solution Discontinued 10 GM PO Daily as needed for constipation 450 30 0 August 01, 2024 11:00pm August 20, 2024 5:06pm Constipation Constipation, unspecified use everyday until you have a bowel movement daily.Start: 08-02-2024 End: 91-71-6135ujuz 10 g by mouth once daily for constipationLactulose 10 gram/15 mL solution Discontinued 10 GM PO Daily as needed for constipation 450 30 August 02, 2024 12:00am August 20, 2024 6:06pm use everyday until you have a bowel movement daily.Start: 34-23-2026urfd 10 g by mouth once daily for constipationLactulose 10 gram/15 mL solution Active 10 GM PO Daily as needed for constipation 450 30 August 02, 2024 12:00am use everyday until you have a bowel movement daily.latanoprost 0.05 mg/ml ophthalmic solution (20 sources)Prostaglandin AnalogStart: 07-20-2024 End: 46-48-9152wgrs 1 drop(s) into the eye(s) once daily in the evening Latanoprost 0.005 % drops Discontinued 1 DROPS EYE-BOTH Every evening July 20, 2024 1:00am July 26, 2024 8:42amStart: 06-16-3819szlk 1 drop(s) into the eye(s) once dailyLatanoprost Active DROPS OPHTHALMIC Daily July 27, 2023 12:00amStart: 08-86-2401vzysosxweyy Opth 0.005% Janee Refill(s) 0, 10 mL, 0 Refill(s) Start Date: 05/19/23 Status: Ordered Repeat number: 1Start: 05-19-2023 End: 91-74-2476umdx 1 drop(s) into the eye(s) once daily in the evening Latanoprost 0.005 % drops Discontinued 1 DROPS EYE-BOTH Every evening July 20, 2024 12:00am 2024 7:42amStart: 33-31-1300agtnmkzujcj (Xalatan) 0.005 % ophthalmic solution Administer 1 drop into both eyes. 05/19/2023 ActiveStart: 18-50-1286hiegawesveg ophthalmic qPM, Refill(s) 0, Dry eyes Start Date: 04/24/20 Status: OrderedStart: 56-05-8735wzqkcxwkibf ophthalmic qPM, Refill(s) 0 Start Date: 04/24/20 [...] (20 sources)Antiarrhythmic, Amide Local AnestheticStart: 07-20-2024 End: 14-70-6148Wbdbmwblc-Prilocaine 2.5-2.5 % cream Discontinued 2 GM TOPICAL as needed July 20, 2024 12:00am July 26, 2024 7:42amStart: 07-13-2024 End: 47-47-1306Apjvmsedd-Prilocaine 2.5-2.5 % cream Discontinued 2 GM TOPICAL Once as needed for pain 30 2 July 13, 2024 1:08pm October 03, 2024 9:23am Apply 1 hour prior to accessing port.Magic Mouthwash W/Lidocaine 240 Ml Bottle 240 mL bottle (20 sources)Start: 08-23-2024 End: 55-16-0708fimo 10 mL by mouth four times daily as neededMagic Mouthwash W/Lidocaine 240 Ml Bottle 240 mL bottle Discontinued 10 ML PO Four times daily as needed for mucositis 240 1 August 23, 2024 9:14am October 03, 2024 9:23am Squamous cell carcinoma of oropharynx Malignant neoplasm of oropharynx, unspecified Take 10ml by mouth, four times a day, as needed. [employer]. will call when they need refillStart: 08-23-2024 End: 37-26-8307tipm 10 mL by mouth four times daily as neededMagic Mouthwash W/Lidocaine 240 Ml Bottle 240 mL bottle Discontinued 10 ML PO Four times daily as needed for mucositis 240 1 August 23, 2024 10:14am October 03, 2024 10:23am Squamous cell carcinoma of oropharynx Malignant neoplasm of oropharynx, unspecified Take 10ml by mouth, four times a day, as needed. [employer]. will call when they need refillStart: 08-23-2024 End: 20-03-6201uavq 10 mL by mouth four times daily as neededMagic Mouthwash W/Lidocaine 240 Ml Bottle 240 mL bottle Discontinued 10 ML PO Four times daily as needed for mucositis 240 August 23, 2024 10:14am October 03, 2024 10:23am Take 10ml by mouth, four times a day, as needed. [employer]. will call when they need refillStart: 93-33-0336xkng 10 mL by mouth four times daily as needed Magic Mouthwash W/Lidocaine 240 Ml Bottle 240 mL bottle Active 10 ML PO Four times daily as needed for mucositis 240 August 23, 2024 10:14am Take 10ml by mouth, four times a day, as needed. SWISH ANDSWALLOW. will call when they need refillStart: 07-20-2024 End: 14-29-1755oqph 1 mL by mouth four times daily as neededMagic Mouthwash W/Lidocaine 240 Ml Bottle 240 mL bottle Discontinued ML PO Four times daily as needed 240 July 20, 2024 12:00am July 26, 2024 7:42amStart: 07-20-2024 End: 23-56-5422dibg 1 mL by mouth four times daily as neededMagic Mouthwash W/Lidocaine 240 Ml Bottle 240 mL bottle Discontinued ML PO Four times daily as needed 240 July 20, 2024 1:00am July 26, 2024 8:42amStart: 07-19-2024 End: 82-64-3844ajrv 10 mL by mouth four times daily as neededMagic Mouthwash W/Lidocaine 240 Ml Bottle 240 mL bottle Discontinued 10 ML PO Four times daily as needed for mucositis 240 July 19, 2024 12:00am August 20, 2024 5:07pm Squamous cell carcinoma of oropharynx Malignant neoplasm of oropharynx, unspecified Take 10ml by mouth, four times a day as needed. [employer]OW. Start: 07-19-2024 End: 58-78-0758kzrj 10 mL by mouth four times daily as neededMagic Mouthwash W/Lidocaine 240 Ml Bottle 240 mL bottle Discontinued 10 ML PO Four times daily as needed for mucositis 240 July 19, 2024 1:00am August 20, 2024 6:07pm Squamous cell carcinoma of oropharynx Malignant neoplasm of oropharynx, unspecified Take 10ml by mouth, four times a day as needed. [employer]ALLOW. Start: 07-19-2024 End: 93-87-8662wrhn 10 mL by mouth four times daily [...] as needed. SWISH [employer] SWALLOW.Start: 07-06-2024 End: 59-48-0603biln 10 mL by mouth four times daily as neededMagic Mouthwash W/Lidocaine 240 Ml Bottle 240 mL bottle Discontinued 10 ML PO Four times daily as needed for mucositis 240 0 July 06, 2024 12:00am August 23, 2024 9:15am Squamous cell carcinomaof oropharynx Malignant neoplasm of oropharynx, unspecified Take 10ml by mouth, four times a day, as needed. [employer] SWALLOW. Start: 07-06-2024 End: 70-32-9802rlix 10 mL by mouth four times daily as neededMagic Mouthwash W/Lidocaine 240 Ml Bottle 240 mL bottle Discontinued 10 ML PO Four times daily as needed for mucositis 240 0 July 06, 2024 1:00am August 23, 2024 10:15am Squamous cell carcinomaof oropharynx Malignant neoplasm of oropharynx, unspecified Take 10ml by mouth, four times a day, as needed. SWISH [employer] SWALLOW. Start: 07-06-2024 End: 96-99-7884ggmm 10 mL by mouth four times daily as neededMagic Mouthwash W/Lidocaine 240 Ml Bottle 240 mL bottle Discontinued 10 ML PO Four times daily as needed for mucositis 240 July 06, 2024 1:00am August 23, 2024 10:15am Take 10ml by mouth, four times a day, as needed. SWISH [employer] SWALLOW.Start: 74-08-5144ewrq 10 mL by mouth four times daily as neededMagic Mouthwash W/Lidocaine 240 Ml Bottle 240 mL bottle Active 10 ML PO Four times daily as needed for mucositis 240 July 06, 2024 1:00am Take 10ml by mouth, four times a day, as needed. SWISH AND SWALLOW.Start: 09-90-2152nglc 10 mL by mouth four times daily as neededMagic Mouthwash W/Lidocaine 240 Ml Bottle 240 mL bottle Active 10 ML PO Four times daily as needed for mucositis 240 July 06, 2024 12:00am Take 10ml by mouth, four times a day, as needed. SWISHAND SWALLOW.metFORMIN hydrochloride 500 mg oral tablet (20 sources)BiguanideStart: 67-96-7976ygzn 1 tablet by mouth twice daily metFORMIN XR (Glucophage-XR) 500 MG 24 hr tablet Indications: Type 2 diabetes mellitus with hyperglycemia, without long-term current use of insulin ([facility]LY [facility] [place]) TAKE 1 TABLET BY MOUTH TWICE DAILY 200 tablet2 05/01/2024 ActiveStart: 05-31-2023 End: 52-93-4132ochr 1 tablet by mouth once daily in the morningMetformin 500 mg tablet Discontinued 500 MG PO Every morning July 20, 2024 12:00am July 26, 2024 7:43amStart: 90-96-0898qnhv 1 tablet by mouth twice dailymetFORMIN XR (Glucophage-XR) 500 MG 24 hr tablet Indications: Type 2 diabetes mellitus with hyperglycemia, without long-term current use of insulin (CMS/HCC) TAKE 1 TABLET BY MOUTH TWICE DAILY 180 tablet 3 05/18/2023 ActiveStart: 73-16-3627sigh 1 mg by mouth twice dailymetformin 500 mg ER Tab mg tab(s), Oral, BID, Refills(s) 0, High blood sugar Start Date: 04/24/20 Status: Orderedtake 1 tablet by mouth once dailymetFORMIN XR 500 mg 24 hr tablet Take 1 tablet (500 mg) by mouth once daily. ActiveComment on above:Take 500 mg by mouth.5 ml midazolam 1 mg/ml injection (1 source)BenzodiazepineStart: 06-05-2024 End: 81-67-3220aqproywkxyr, Once PRN Procedure, Starting on Wed06/05/24 at 1345, For 1 dose, Intraproceduremometasone furoate 1 mg/ml topical cream (20 sources)CorticosteroidStart: 06-14-2024 End: 68-95-4488Ezqzkcptcf 0.1 % cream Discontinued 1 APPLIC TOPICAL Daily July 20, 2024 12:00am July 2657:43amMultivitamin (One Daily Multivitamin) tablet (17 sources)Start: 07-20-2024 End: 69-27-8265rwlw 1 tablet by mouth once dailyMultivitamin (One Daily Multivitamin) tablet Discontinued 1 TAB PO Daily July 20, 2024 12:00am July 26, 2024 7:43amStart: 07-20-2024 End: 07-10-3920rnoa 1 tablet by mouth once dailyMultivitamin (One Daily Multivitamin) tablet Discontinued 1 TAB PO Daily July 20, 2024 1:00am July 26, 2024 8:43amnystatin 305545 unt oral tablet (20 sources)Polyene AntifungalStart: 08-17-2024 End: 45-56-7516yeme 1 tablet by mouth four times dailyNystatin 500,000 unit tablet Discontinued 229726 UNIT PO Four times daily 40 10 1 September 14, 2024 8:24am November 23, 2024 9:01amStart: 08-02-2024 End: 54-87-6628Cworaoho 100,000 unit/mL suspension Discontinued 093811 UNIT PO Four times daily 224 14 0 August 01, 2024 11:00pm August 20, 2024 5:07pm Candidiasis of mouth Candidal stomatitis oral thrush administer 1/2 of dose in each side of the mouthNystatin 100,000 unit/mL suspension (8 sources)Start: 08-02-2024 End: 96-04-4419Pmjyyyxx 100,000 unit/mL suspension Discontinued 353588 UNIT PO Four times daily 224 July 12:00am August 20, 2024 6:07pm administer 1/2 of dose in each side of the mouthStart: 11-60-3616Iteoaoio 100,000 unit/mL suspension Active 400475 UNIT PO Four times daily 224 August 02, 2024 12:00am administer 1/2 of dose in each side of the mouthOLANZapine 2.5 mg oral tablet (20 sources)Atypical AntipsychoticStart: 08-09-2024 End: 05-18-2628coph 1 tablet by mouth twice dailyOlanzapine 2.5 mg tablet Discontinued 2.5 MG PO Twice daily 15 06August 08, 2024 11:00pm November 23, 2024 9:02amtake 2 tablets by mouth at bedtimeOLANZapine (ZyPREXA) 2.5 MG tablet Take 5 mg by mouth at bedtime Activeomeprazole 40 mg delayed release oral capsule (20 sources)Proton Pump InhibitorStart: 08-24-2022 End: 33-90-7177bmdq 1 capsule by mouth once daily in the morningOmeprazole 40 mg capsule,delayed release(DR/EC) Discontinued 40 MG PO Every morning July 202:00am July 26, 2024 7:43amStart: 66-41-9668izuxlxjbfv Oral, Daily, Refills(s) 0 Start Date: 04/27/22 Status: OrderedOmeprazole ActiveComment on above:Take 40 mg by mouth.ondansetron 4 mg disintegrating oral tablet (20 sources)Serotonin-3 Receptor AntagonistStart: 07-20-2024 End: 03-73-3282vsel 2 tablets by mouth every eight hoursOndansetron 4 mg tablet,disintegrating Discontinued 8 MG PO Every 8 hours July 20, 2024 12:00am July 26, 2024 7:43amStart: 16-24-8743iplf 1 tablet by mouth every eight hours as needed for nausea and vomitingoxyCODONE hydrochloride 1 mg/ml oral solution (20 sources)Opioid AgonistStart: 62-37-2481bfye 7.5 mg by mouth every eight hours as needed for painoxycodone 5 mg/5 mL oral solution take 7.5 mg q 8 hrs as needed for pain, Refills(s) 0 Start Date: 08/22/24 Status: Ordered Repeat number: 1Start: 07-20-2024 End: 14-94-4539smxy 10 mg by mouth every four hours as needed for painOxycodone 5 mg/5 mL solution Discontinued 10 MG PO Every 4 hours as needed for pain 750 15 0 August 16, 2024 September 21, 2024 2:02pm Neoplasm related pain 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) Malignant neoplasm of oropharynx, unspecifiedStart: 07-19-2024 End: 56-86-1687vpzk 5 mg by mouth every four to six hours as neededOxycodone 5 mg/5 mL solution Discontinued 5 MG PO EVERY 4-6 HOURS as needed 0 July 20, 2024 12:00am July 26, 2024 7:44amStart: 05-11-2024 End: 38-94-3310zvtz 1 tablet by mouth every six hours [...] mg oral tablet (20 sources)PhenothiazineStart: 06-14-2024 End: 03-31-5652nuul 1 tablet by mouth every eight hours as needed Prochlorperazine Maleate (Compazine) 10 mg tablet Discontinued 10 MG PO Every 8 hours as needed July 20, 2024 12:00am July 26, 2024 7:44ampsyllium 400 mg oral capsule (20 sources)Start: 03-10-2023 End: 64-05-6295imgu 3 capsules by mouth once dailypsyllium (Metamucil) 3.4 gram packet Take 3 capsules by mouth once daily. 03/10/2023 12/13/2024 Discontinued (Med List Cleanup)Start: 03-10-2023 End: 53-52-5923Unssrgty Husk (Fiber (Psyllium Husk)) 0.4 gram capsule Discontinued 0.4 GM PO Daily July 202:00am July 26, 2024 7:44am Start: 91-45-4052hjzy 3 capsules by mouth once dailypsyllium (Metamucil 3 in 1 Daily Fiber) 400 MG capsule Take 3 capsules by mouth Daily 03/10/2023 Active Start: 68-80-2373Xkhfxcovr Refills(s) 0, Constipation Start Date: 03/10/23 Status: OrderedStart: 91-87-1205Uluwajavt Refills(s) 0 Start Date: 03/10/23 Status: OrderedPsyllium Husk (Fiber (Psyllium Husk)) 0.4 gram capsule (20 sources)Start: 07-20-2024 End: 74-14-8637Ppujfkjg Husk (Fiber (Psyllium Husk)) 0.4 gram capsule Discontinued 0.4 GM PO Daily July 2051:00am July 26, 2024 8:44amStart: 06-22-2024 End: 34-54-4644Yblwkwci Husk (Fiber (Psyllium Husk)) 0.4 gram capsule Discontinued 0.4 GM PO Daily June 22, 2024 1:00am August 20, 2024 6:08pm Start: 87-47-3460Lyefscdk Husk (Fiber (Psyllium Husk)) 0.4 gram capsule Active 0.4 GM PO Daily June 22, 2024 1:00amStart: 98-38-4128Dfnttfsa Husk (Fiber (Psyllium Husk)) 0.4 gram capsule Active 0.4 GM PO Daily June 22, 2024 12: 00amrosuvastatin calcium 10 mg oral tablet (20 sources)HMG-CoA Reductase InhibitorStart: 04-24-2020 End: 27-98-3431ghcz 1 tablet by mouth once daily in the eveningRosuvastatin 10 mg tablet Discontinued 10 MG PO Every evening July 20, 2024 12:00am July 26, 2024 7:44amCrestor ActiveComment on above:Take 10 mg by mouth.sennosides, group home 8.6 mg oral tablet (9 sources)Start: 08-02-2024 End: 55-78-0143nvsf 1 tablet by mouth once daily as needed for constipation Sennosides (Black-Draught Lax-Senna) 8.6 mg tablet Discontinued 8.6 MG PO Twice daily as needed forconstipation 60 30 3 August 01, 2024 11:00pm November 23, 2024 9:02am Constipation Constipation, unspecified Use if no bowel movement daily Start: 05-11-2024 End: 52-70-7797ozxx 1 tablet by mouth once dailysennosides (Senokot) 8.6 mg tablet Indications: Acute postoperative pain Take 1 tablet (8.6 mg) by mouth once daily for 2 days. 2 tablet 05/11/2024 05/13/2024 Activesotalol hydrochloride 80 mg oral tablet (20 sources)AntiarrhythmicStart: 68-20-0444ssoeldd (Betapace) 80 mg tablet Take 1 half tablet by mouth 2 times a day. 07/27/2023 ActiveStart: 07-27-2023 End: 41-38-9833Wkfrgvr 80 mg tablet Discontinued 40 MG PO Twice daily July 20, 2024 12:00am July 26, 2024 7:44amStart: 19-28-2651rxhk 1 tablet by mouth once dailySotalol 80 mg tablet Active 80 MG PO Daily July 26, 2023 11:00pmStart: 20-85-3455dqqa 0.5 tablet by mouth twice dailysotalol (Betapace) 80 mg tablet Take 0.5 tablets (40 mg) by mouth 2 times a day. 07/27/2023 ActiveComment on above:Take 80 mg by mouth.sucralfate 100 mg/ml oral suspension (20 sources)Aluminum ComplexStart: 09-14-2024 End: 61-70-9996jrxj 1 mL by mouth three times dailySucralfate 100 mg/mL suspension Discontinued 10 ML PO Three times daily 450 15 1 September 13, 2024 11 :00pm October 03, 2024 9:26amStart: 74-29-1230kpergxoxac (CARAFATE) 1 gram tablet Take 1 g by mouth. 12/15/2022 ActiveStart: 86-32-5983nkdrqhvmfe 1 g Tab Refills(s) 0, Control of stomach acid Start Date: 12/15/22 Status: OrderedStart: 75-16-4065bzglczmkow 1 g Tab gm tab(s), Oral, QIDACHS, Refills(s) 0 Start Date: 04/27/22 Status: OrderedSucralfate Not-Taking/PRNSucralfate Not-TakingSucralfate ActiveComment on above:Take 1 g by mouth.temazepam 15 mg oral capsule (6 sources)Benzodiazepinetake 1 capsule by mouth every twenty-four hours Temazepam 15 MG 1 capsule at bedtime as needed Orally Once a day Not-Taking/PRN tiZANidine 4 mg oral capsule (20 sources)Central alpha-2 Adrenergic AgonistStart: 07-20-2024 End: 58-11-6186haws 1 capsule by mouth once daily in the evening as needed Tizanidine 4 mg capsule Discontinued 4 MG PO Every evening as needed July 20, 2024 12:00am July 26, 2024 7:45amStart: 02-21-2021 End: 78-67-3958jxfq 1 tablet by mouth once daily in the eveningTizanidine 4 mg tablet Discontinued 4 MG PO Every evening July 26, 2023 11:00pm November 29, 2024 10:34am End: 43-87-0866oxGLPahehx HCl (ZANAFLEX) 4 mg capsule Take 4 mg by mouth. Active tiZANidine HCl ActiveComment on above:Take 4 mg by mouth.zonisamide 25 mg oral capsule (20 sources)Anti-epileptic AgentStart: 07-75-8954Utxnnturdq Active MG PO July 27, 2023 12:00amStart: 02-15-2023 End: 35-10-2691uymk 1 capsule by mouth twice dailyZonisamide 25 mg capsule Discontinued 25 MG PO Twice daily July 20, 2024 12:00am July 2657:45am Problems Active Problems Problem ClassificationProblemDateDocumented DateEpisodic/ChronicAbdominal pain (20 sources)Lower abdominal pain; Translations: [Right flank pain]Onset: 04-03-2022 Resolved: [id number]; peripheral; and visceral artery aneurysms (20 sources)Ectasia of thoracic aorta; Translations: [Thoracic aortic ectasia] Onset: [id number] on above:added per 11/05/2023 query response.Cancer of head and neck (20 sources)Malignant tumor of floor of mouth; Translations: [Malignant neoplasm of floor of mouth, unspecified]Onset: 148732-54-9854GbhmuqoYahesq of prostate (20 sources)Malignant tumor of prostate; Translations: [Malignant neoplasm of prostate]Onset: 414698-88-1171NndjtvdNgebzr; other and unspecified primary (2 sources)History of malignant neoplasm of head and/or neck; Translations: [Personal history of malignant neoplasm of other organs and systems]09-11-2024 EpisodicCancer; other and unspecified primary (2 sources)Personal history of malignant neoplasm of other organs and systems; Translations: [Personal historyof malignant neoplasm of other organs and systems]Onset: 04-03-1380AizgrlthRjgkvld dysrhythmias (20 sources)Ventricular tachycardia; Translations: [Ventricular tachycardia] Onset: [id number]kpn of device; implant or graft (7 sources)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; Translations: [Atherosclerosis of coronary artery bypass graft(s) without angina pectoris]Onset: 962486-10-6313RxdbysxKurytawupv associated with dizziness or vertigo (4 sources)Vertigo; Translations: [Dizziness and giddiness]57-09-5599Wdgaczzt Conduction disorders (20 sources)Cardiac pacemaker in situ; Translations: [Presence of cardiac pacemaker]Onset: 658602-65-4320KvvzwnyWdajwoux atherosclerosis and other heart disease (20 sources)Coronary arteriosclerosis; Translations: [Atherosclerotic heart disease of [place] coronary artery without angina pectoris]Onset: 01-20-2019 ChronicComment on above:noted in 11/10/2022 Cardiology Consult Note page 11. added per [facility] policy.Diabetes mellitus with complications (20 sources)Neuropathy due to diabetes mellitus; Translations: [Autonomic neuropathy due to type 2 diabetes mellitus]Onset: 930055-01-7529Brdwazo Diabetes mellitus without complication (20 sources)Diabetes mellitus; Translations: [Type 2 diabetes mellitus without complication]Onset: [id number] on above:linked DM with HLD per [facility] policy.Disorders of lipid metabolism (20 sources)Hypercholesterolemia; Translations: [Pure hypercholesterolemia, unspecified]Onset: 376165-82-9671JcdccbzBuavsxidg of teeth and jaw (2 sources)Ulceration of gingivae; Translations: [Other specified disorders of gingiva and edentulous alveolarridge]67-33-7678RjzrvrfvHjyqramabthqwq and diverticulitis (20 sources)Diverticular disease; Translations: [Diverticulosis of intestine, part unspecified, without perforation or abscess without bleeding]Onset: 562344-29-9741JhmbogmJdaecyffoj disorders (20 sources)Gastroesophageal reflux disease with apnea; Translations: [Gastro- esophageal reflux disease withoutesophagitis]Onset: 100893-48-2480Iyujkod Essential hypertension (20 sources)Hypertensive disorder; Translations: [Essential hypertension]Onset: 718531-70-1479QxvawtlXiagg of unknown origin (18 sources)Fever; Translations: [Fever, unspecified]91-24-7495Jilbixvk Genitourinary symptoms and ill-defined conditions (1 source)Delay when starting to pass mpyfs09-85-5641SpxoipjyTbrraqli (20 sources)Glaucoma; Translations: [Unspecified glaucoma]Onset: 04-03-2022 70-46-4519WkbkodjKherfvax; including migraine (20 sources)Migraine; Translations: [Migraine, unspecified, not intractable, without status migrainosus]Onset: 661060-76-4356HqehgupEbqjj valve disorders (20 sources)Aortic valve regurgitation; Translations: [Nonrheumatic aortic (valve) insufficiency]Onset: 082606-21-4484CkvzhkiUykvnljx disorders (20 sources)Immunosuppression; Translations: [Immunodeficiency, unspecified] Onset: 822250-76-3540SabfgblLbunals on above:noted in 08/20/2024 [facility] ED Note page 5. added per OP CDI policy.Joint disorders and dislocations; trauma-related (20 sources)Derangement of right knee; Translations: [Unspecified internal derangement of right knee]Onset: 331368-65-1072PttgpgrJaazthd (20 sources)Onychomycosis; Translations: [Tinea unguium]Onset: 01-27-2024 Resolved: 081210-88-0068SclhdfffEqudjqmjn of unspecified nature or uncertain behavior (4 sources)Benign neoplasm of pancreas; Translations: [Neoplasm of unspecified behavior of digestive system]85-61-4840OhopsilvCcxuteoypdj deficiencies (20 sources)Vitamin D deficiency; Translations: [Vitamin D deficiency, unspecified]Onset: 807901-99-2617ScjwoiuOejuesaguzjeci (20 sources)Osteoarthritis; Translations: [Arthritis of right ankle]Onset: 355515-98-6504WixqakqGqykk aftercare (1 source)Other fdc (current) drug therapy; Translations: [OTH CAMP ATTENDANT CURRENT DRUG THERAPY]Onset: 70-42-5748UulszsocTpbdc aftercare (1 source)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; Translations: [DETENTION CURRENT USE OF ASPIRIN]Onset: 94-19-7896DvofzwlwOrues aftercare (1 source)prison (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 of antithrombotics/antiplatelets; Translations: [DETENTION ANTITHROMBOT/ANTIPLATLETS]Onset: 95-20-8207Ekkmdjpg Other aftercare (1 source)prison (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 of oral hypoglycemic drugs; Translations: [DETENTION USE ORAL HYPOGLYCEMIC DX]Onset: 01-51-4281JhwvkeiqBfhye aftercare (20 sources)Patient encounter status; Translations: [Encounter for palliative care]06-08-3174CjjgcvflMiemx bone disease and musculoskeletal deformities (20 sources)Osteochondritis dissecans of right ankle; Translations: [Osteochondritis dissecans, right ankle andjoints of right foot]Onset: 686542-74-0980ZzsduqoQksfz circulatory disease (1 source)Raynaud's syndrome without gangrene; Translations: [RAYNAUDS SYNDROME WITHOUT GANGRENE]Onset: 44-39-5595WkrtowmMacxi ear and sense organ disorders (20 sources)Hearing loss; Translations: [Unspecified hearing loss, unspecified ear]Onset: 143490-61-4183UzgapyfGniel ear and sense organ disorders (2 sources)Sensorineural hearing loss, bilateral; Translations: [Sensorineural hearing loss, bilateral]67-88-7453AniexsySnaui ear and sense organ disorders (1 source)Impacted cerumen, bilateral; Translations: [Impacted cerumen] 70-49-1654PaoafykeSrmzn ear and sense organ disorders (2 sources)Bilateral tinnitus; Translations: [Tinnitus, bilateral]06-23-2024 EpisodicOther gastrointestinal disorders (1 source)Intestinal malabsorption; 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]Onset: 61-69-5840XpvooscBxcnv gastrointestinal disorders (20 sources)Non-infective diarrhea; 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]Onset: 499863-36-0493UweznsaFfcud gastrointestinal disorders (1 source)Gastrostomy present; Translations: [Gastrostomy status]12-13-2024 ChronicOther gastrointestinal disorders (2 sources)Gastrostomy status; Translations: [Gastrostomy status (Multi)]Onset: 11-13-3913UsqcmghPkhfr gastrointestinal disorders (1 source)Jysiimhio29-38-8367RzhcmyldFhlag gastrointestinal disorders (6 sources)Hard -74-7387ShfgysmgOctem gastrointestinal disorders (1 source)Digestive system finding; Translations: [Other specified symptoms and signs involving the digestivesystem and abdomen]Onset: 17-52-9451XizwukkcQzbqc gastrointestinal disorders (2 sources)Abnormal feces; Translations: [Other fecal abnormalities]Onset: 83-58-4218FghfmvrbDmpga gastrointestinal disorders (3 sources)Loose qpjsu42-09-5356FmulipbdOyaxz gastrointestinal disorders (1 source)Non-infective hdgicqli77-30-3159JuhwiqsuRsxnm gastrointestinal disorders (3 sources)Swollen abdomen; Translations: [Abdominal distension (gaseous)]Onset: 28-46-8957DthxieqdKozan gastrointestinal disorders (9 sources)Ugwxhqgh56-05-0662NwubsljzSiwgj gastrointestinal disorders (20 sources)Constipation; Translations: [Constipation, unspecified]08-02-2024 EpisodicComment on above:Secondary to opioids, and decreased oral intakeOther gastrointestinal disorders (1 source)Therapeutic opioid induced mquwmkgrpyrs56-78-7029PauvticgVfouave on above:noted in 08/16/2024 Palliative Care Consult Note page 5. added per OP CDI policy.Other gastrointestinal disorders (7 sources)Esophageal dysphagia; Translations: [Other dysphagia]09-27-2024 EpisodicOther lower respiratory disease (3 sources)Apnea, not elsewhere classifiedEpisodicOther lower respiratory disease (10 sources)Nodule of lung; Translations: [Solitary pulmonary nodule]09-20-2024 EpisodicOther nervous system disorders (20 sources)Polyneuropathy associated with another disorder; Translations: [Polyneuropathy in diseases classified elsewhere]Onset: ChronicOther nervous system disorders (1 source)Polyneuropathy in diseases classified elsewhereChronicOther nervous system disorders (1 source)Other chronic pain; Translations: [OTHER CHRONIC PAIN]Onset: 27-18-3825TzqldvnQuchy nervous system disorders (20 sources)Carpal tunnel syndrome of left wrist; Translations: [Carpal tunnel syndrome, left upper limb]Onset: 632303-72-7349XyhwwrpVffxr nervous system disorders (20 sources)Carpal tunnel syndrome of right wrist; Translations: [Carpal tunnel syndrome, right upper limb]Onset: 757770-92-9549NmdstzzOjolv nervous system disorders (20 sources)Neuropathy; Translations: [Polyneuropathy, unspecified]Onset: 567660-52-3853JrewrebKxigp nervous system disorders (20 sources)Normal pressure hydrocephalus; Translations: [(Idiopathic) normal pressure hydrocephalus]Onset: 095052-38-7088JildrxbLcfsf nervous system disorders (4 sources)Polyneuropathy; Translations: [Polyneuropathy, unspecified]02-16-2024 ChronicOther nervous system disorders (20 sources)Pain due to neoplastic disease; Translations: [Neoplasm related pain (acute) (chronic)]68-33-9846XxrkfoqXdrcjqr on above:Jeremie reports increasing severity of throat [...] (chronic); Translations: [Neoplasm related pain (acute) (chronic)]Onset: 103164-13-6176YdascwoRoxtk nervous system disorders (17 sources)Numbness of ntqy06-25-5742DgjksapgFvmzh nervous system disorders (19 sources)Acute postoperative pain; Translations: [Other acute postprocedural pain]34-69-3501KtbyesnkDkaer nervous system disorders (1 source)Other acute postprocedural pain; Translations: [Other acute postprocedural pain]Onset: 94-02-9829DhcfaxloPqyyr non-traumatic joint disorders (4 sources)Other instability, right ankle; Translations: [OTHER INSTABILITY RIGHT ANKLE]Onset: 42-08-8947DanfmyacSynig nutritional; endocrine; and metabolic disorders (1 source)Body mass index 25-29 - yboidkhint80-85-3143WlwmbwaqVjxmt screening for suspected conditions (not mental disorders or infectious disease) (5 sources)Screening for malignant neoplasm of colon done; Translations: [Encounter for screening for malignant neoplasm of colon]Onset: 02-25-2023 EpisodicOther upper respiratory infections (1 source)Acute upper respiratory infection, unspecified; Translations: [Acute upper respiratory infections of unspecified site]41-29-0175VhmxoelyCymnvbixg; thrombophlebitis and thromboembolism (1 source)Personal history of other venous thrombosis and embolism; Translations: [PERS HX OTH VENOUS THROMBOSIS AND EMBO]Onset: 65-38-8302Jkowbiau Pneumonia (except that caused by tuberculosis or sexually transmitted disease) (1 source)Pneumonia (except that caused by tuberculosis or sexually transmitted disease); Translations: [PNEUMONIA D/T CORONAVIRUS DIS 2019]Onset: 09-28-2022 Residual codes; unclassified (18 sources)Sleep yztrr68-36-9491GmultqkIjkuzrwz codes; unclassified (20 sources)Obstructive sleep apnea syndrome; Translations: [Obstructive sleep apnea (adult) (pediatric)]Onset: 819372-09-8752YhoflirJsecyloq codes; unclassified (20 sources)Daytime somnolence; Translations: [Other hypersomnia]Onset: 409385-28-0826WjrkkacCecjbtyd codes; unclassified (8 sources)Obstructive sleep apnea (adult) (pediatric); Translations: [Obstructive sleep apnea (adult)(pediatric)]ChronicResidual codes; unclassified (5 sources)Other hypersomnia; Translations: [Excessive daytime sleepiness]Onset: 62-52-2620LrmnpcbUimeftyj codes; unclassified (1 source)Sleep apnea, unspecified; Translations: [SLEEP APNEA UNSPECIFIED] Onset: 92-43-2576ZsxidvxIosoachx codes; unclassified (20 sources)Central sleep apnea syndrome; 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]Onset: 136551-96-1124MsqauowPxfgcvdh codes; unclassified (4 sources)Primary central sleep apnea; Translations: [Unspecified sleep apnea] 29-15-5365DatyuusTdqvptpl codes; unclassified (1 source)Acquired absence of other genital organ(s); Translations: [ACQUIRED ABSENCE OTH GENITAL ORGANS]Onset: 52-74-8650SauqymcnVnctuzin codes; unclassified (1 source)At risk for imbalanced nutrition, less than body requirements; Translations: [Other specified personal risk factors, not elsewhere classified] 77-77-4539OpolemxsVdoposdn codes; unclassified (2 sources)Other specified personal risk factors, not elsewhere classified; Translations: [Other specified personal risk factors, not elsewhere classified] Onset: 14-00-9924ZcxaxpmfAbtlhkrbb and history of mental health and substance abuse codes (1 source)Rq-zkactz62-63aouwwc60-98-9191JlqoynzoXucotyiib malignancies (2 sources)Secondary malignant neoplasm of neck; Translations: [Secondary malignant neoplasm of other specified sites]11-57-4824XqqlpykDixywkdyd malignancies (3 sources)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 and neck lymph node; Translations: [Secondary and unspecified malignant neoplasmof lymph nodes of head, face and neck]03-29-2024 ChronicSecondary malignancies (2 sources)Secondary malignant neoplasm of lymph nodes of neck; Translations: [Secondary and unspecified malignant neoplasm of lymph nodes of head, face and neck]92-92-0996ZghbfrxXmtvkfo on above:noted in 08/21/2024 [facility] DC Summary page 2. added per OP CDI policy.Secondary malignancies (2 sources)Secondary and unspecified malignant neoplasm of lymph nodes of head, face and neck; Translations: [Secondary and unspecified malignant neoplasm of lymph nodes of head, face and neck]Onset: 82-80-7211ZxtavweNezkuwofmvy; intervertebral disc disorders; other back problems (20 sources)Spondylosis without myelopathy or radiculopathy, lumbar region; Translations: [Other intervertebraldisc degeneration, lumbar region]Onset: 25-03-1547EccydmzRzykxsg on above:noted in 09/15/2023 Pain Management Consult note page 5. added per OP CDI policy.Substance-related disorders (20 sources)Hypnotic dependence; Translations: [Sedative, hypnotic or anxiolytic dependence, uncomplicated]Onset: 01-27-2024 Resolved: 42-15-0248EislqeiWpnhvbcttjjx (4 sources)LOW BACK PAIN, UNSPECIFIED; Translations: [LOW BACK PAIN, UNSPECIFIED]Onset: 33-45-9972Zmpsownawlxm (8 sources)Patient encounter msobmd28-08-9354Jlydhqxhxxzf (4 sources)A [facility] screening has identified you as FRAIL [...] Four Ways to Beat the Frailty Risk [email or web address]-ghntsd-uevw- odum-cs-uigz-the-fra hado-zxtn62-55uuxp16-79-5891Zwiypmzeaswk (1 source)Mild pulmonary tfhwuwyqhsvy87-02-9940Laqvdrk on above:added per 08/23/2024 query response.Unclassified (10 sources)Resume your Plavix tomorrowUnclassified (1 source)C10.9 - Malignant neoplasm of oropharynx, unspecifiedUrinary tract infections (1 source)Urinary tract infectious lcuvmko12-69-2813EjezudhhYceyz infection (10 sources)Disease caused by 2019-nCoV; Translations: [COVID-19]Onset: 09-22-2022 Past or Other Problems Problem ClassificationProblemDateDocumented DateEpisodic/ChronicBiliary tract disease (20 sources)Gallstone; Translations: [Calculus of gallbladder without cholecystitis without obstruction]Onset: 04-03-2022 Resolved: 053902-41-6644EssslwboXgvkvn of prostate (20 sources)History of malignant neoplasm of prostate; Translations: [Personal history of malignant neoplasm ofprostate]Onset: 394789-77-3082Irepgowj Coronary atherosclerosis and other heart disease (7 sources)Stented coronary artery; Translations: [Presence of coronary angioplasty implant and graft]Onset: 771617-92-8519WrtcarrzMxewzlml of mouth; excluding dental (14 sources)Ulcer of mouth; Translations: [Other forms of stomatitis]Onset: 307598-25-9073AmramkghIxwjzpkzinguuq ulcer (except hemorrhage) (20 sources)Peptic ulcer; Translations: [Peptic ulcer, site unspecified, unspecified as acute or chronic, without hemorrhage or perforation]Onset: 04-03-2022 Resolved: 308997-41-2995XfsnkdjXderwumbsjvhl symptoms and ill-defined conditions (20 sources)Incontinence; Translations: [Incontinence without sensory awareness] Onset: 01-27-2024 Resolved: 707573-85-9362PipnvwrIualowqrwye (20 sources)Hemorrhoids; Translations: [Unspecified hemorrhoids]Onset: 458624-85-9930JulgwwdaXpzudrksnbir conditions of male genital organs (20 sources)Prostatitis; Translations: [Inflammatory disease of prostate, unspecified]Onset: 339570-21-8004PrfnspwlAxgxzzwekrqzy (20 sources)Lymphadenopathy; Translations: [Cervical lymphadenopathy]Onset: 347757-43-8631KqtsepdpAmcqiu and vomiting (20 sources)Nausea; Translations: [Nausea]Onset: 815641-05-6197Myyzxhby Comment on above:noted in 08/16/2024 Palliative Care Consult Note page 5. added per OP CDI policy.Nonspecific chest pain (20 sources)Chest wall pain; Translations: [Other chest pain]Onset: 04-03-2022 Resolved: 310403-88-9695DeuhwrggRfxbe aftercare (6 sources)Encounter for palliative care; Translations: [Encounter for palliative care]Onset: 518867-10-7112KigzhastNdzbf and unspecified benign neoplasm (20 sources)History of polyp of colon; Translations: [Personal history of colonic polyps]Onset: 61-11-5395UwoijabzIptsa and unspecified benign neoplasm (20 sources)Polyp of colon; Translations: [Polyp of colon]Onset: 01-27-2024 21-51-0059HrcpjzkfHtecg connective tissue disease (2 sources)Pain in left finger(s); Translations: [PAIN IN LEFT FINGERS]Onset: 11-29-2021 Resolved: 52-13-6520UvfcnwdpSbcbx connective tissue disease (4 sources)Pain in right foot; Translations: [PAIN IN RIGHT FOOT]Onset: 01-99-2675TcmtqqtnBxyjv connective tissue disease (3 sources)Pain in arm, unspecified; Translations: [PAIN IN ARM UNSPECIFIED] Onset: 25-93-4782IcleqppiUmlxq connective tissue disease (1 source)Pain in left upper arm; Translations: [PAIN IN LEFT UPPER ARM]Onset: 22-97-6686RwyxqtfkVhaue connective tissue disease (1 source)Pain in right upper arm; Translations: [PAIN IN RIGHT UPPER ARM]Onset: 31-96-2810XahrvdppHgefc connective tissue disease (20 sources)Disorder of musculoskeletal system; Translations: [Other specified disorders of synovium, right ankle and foot]Onset: 518514-58-5144Jagcmfmq Other connective tissue disease (20 sources)Pain in limb; Translations: [Pain in unspecified limb]Onset: 01-27-2024 Resolved: 720137-83-5241UccatjiyDeebl diseases of veins and lymphatics (20 sources)Peripheral venous insufficiency; Translations: [Venous insufficiency (chronic) (peripheral)]Onset: 47-51-938770524878-23-8477MtwpetbcGmigk gastrointestinal disorders (4 sources)Diarrhea, unspecified; Translations: [DIARRHEA UNSPECIFIED]Onset: 54-18-1927BqtfcntxDtopm gastrointestinal disorders (20 sources)Dysphagia; Translations: [Dysphagia, unspecified]Onset: 01-12-2023 99-08-0666HbtzyrwdUoshf gastrointestinal disorders (20 sources)Urgent desire for stool; Translations: [Fecal urgency]Onset: 01-12-2023 Resolved: 515851-07-5294QnevzrxiDxmpd gastrointestinal disorders (20 sources)Irregular bowel habits; Translations: [Other specified symptoms and signs involving the digestive system and abdomen]Onset: EpisodicOther gastrointestinal disorders (20 sources)Abdominal bloating; Translations: [Abdominal distension (gaseous)] Onset: 01-27-2024 Resolved: 444773-90-4455PboqivewLwiea gastrointestinal disorders (20 sources)Smearing feces; Translations: [Fecal smearing]Onset: 04-03-2022 Resolved: 211461-75-8276ZyywlpxpQmbaj gastrointestinal disorders (20 sources)Constipation, unspecified; Translations: [Constipation, unspecified] Onset: 176121-04-4112VtazkysnVepsv gastrointestinal disorders (1 source)Dysphagia, unspecified; Translations: [Dysphagia, unspecified]Onset: 92-82-3067TlwhtszxHtvbw nervous system disorders (20 sources)Entrapment of left ulnar nerve; Translations: [Lesion of ulnar nerve, left upper limb]Onset: 01-27-2024 Resolved: 068779-26-4387RqqdpcdQsdid nervous system disorders (20 sources)Entrapment of right ulnar nerve; Translations: [Lesion of ulnar nerve, right upper limb]Onset: 01-27-2024 Resolved: 771470-69-6881YrsjmppZomao nervous system disorders (1 source)Unspecified disturbances of skin sensation; Translations: [UNS DISTURBANCES OF SKIN SENSATION]Onset: 01-48-4984IuvwcmslPxtzq nervous system disorders (20 sources)Paresthesia of skin; Translations: [Disturbance of skin sensation] Onset: 048971-43-5048UxwfgplcYwduf nervous system disorders (20 sources)Unsteady when standing; Translations: [Unsteadiness on feet]Onset: 01-27-2024 Resolved: 792446-65-1737MptetnjdJaepm non-epithelial cancer of skin (20 sources)Malignant neoplasm of skin; Translations: [Unspecified malignant neoplasm of skin, unspecified]Onset: 166181-07-7179KepyhajtJzjlv non- traumatic joint disorders (20 sources)Arthralgia of the ankle and/or foot; Translations: [Pain in right ankle and joints of right foot]Onset: 386265-35-2797AfcvgybsKrxpz nutritional; endocrine; and metabolic disorders (20 sources)Body mass index 30+ - obesity; Translations: [Obesity, unspecified] Onset: 04-03-2022 Resolved: 460304-38-1374InvzszlYnwrw nutritional; endocrine; and metabolic disorders (20 sources)Overweight in adulthood with body mass index of 25 or more but less than 30; Translations: [Body mass index (BMI) 29.0-29.9, adult]Onset: 01-27-2024 32-26-7912MrokvsweYmjsp skin disorders (4 sources)Nail dystrophy; Translations: [NAIL DYSTROPHY]Onset: 06-11-2022 EpisodicOther skin disorders (1 source)Other nail disorders; Translations: [OTHER NAIL DISORDERS]Onset: 33-21-1641PhzxxjeqYysfp skin disorders (20 sources)Mass of neck; Translations: [Localized swelling, mass and lump, neck]Onset: 919130-27-4577AlhfoqaoHuecja media and related conditions (20 sources)Otitis media; Translations: [Otitis media, unspecified, unspecified ear]Onset: 04-14-2023 Resolved: 116331-95-7926FnwfilzjTkkgujlqwt disorders (not diabetes) (20 sources)Cyst of pancreas; Translations: [Cyst of pancreas]Onset: 01-12-2023 EpisodicPneumonia (except that caused by tuberculosis or sexually transmitted disease) (19 sources)Pneumonia; Translations: [Pneumonia, unspecified organism]Onset: 645758-17-5467CmkciwmgSguarfyw codes; unclassified (20 sources)FH: Stomach cancer; Translations: [Family history of malignant neoplasm of digestive organs]Onset: 701969-15-5656RswpzqpiRupueofy codes; unclassified (20 sources)Insomnia; Translations: [Insomnia, unspecified]Onset: 04-03-2022 09-59-5930OszhxnypGvapeaxv codes; unclassified (20 sources)Edema of lower extremity; Translations: [Localized edema]Onset: 017167-01-2643OeimjzyrTzlsncii codes; unclassified (20 sources)Difficult venous access; Translations: [Other specified health status]Onset: 747409-90-2015BspyikeoKvhm and subcutaneous tissue infections (20 sources)Cellulitis of left toe; Translations: [Cellulitis and abscess of toe, unspecified]Onset: 01-27-2024 Resolved: 144915-00-4411TinncogiCdztwoljqgt; intervertebral disc disorders; other back problems (20 sources)Muscle spasm of back; Translations: [Radiculopathy, cervical region] Onset: 39-44-0206UoxnqnxnIsfxthfsmrdd (1 source)Paroxysmal ventricular tachycardia I47.29Unclassified (1 source)Acute cough R05.1Unclassified (1 source)LOW BACK PAIN, UNSPECIFIED; Translations: [LOW BACK PAIN, UNSPECIFIED] Onset: 21-81-9116Ngdkagjdblyo (7 sources)Onset: 04-07-2024 Resolved: Viral infection (20 sources)Disease caused by 2019-nCoV; Translations: [COVID-19]Onset: 11-10-2022 Resolved: 657654-52-5393Fhxpflnv Results Test NameValueInterpretationReference RangeFacilityCT abdomen w conon 03-22-2025 CT abdomen w [facility] [address] [address] [address] Scan Report Signed Patient: Jeremie Bennett MR#: [id number] 669 : 1940 Acct:[id number] Age/Sex: 84 / M ADM Date: 03/22/25 Loc: CT Room: Type: [facility] Attending Dr: Chang Russell MD Copies to: Chang Russell MD Ordering Provider: Chang Russell MD Date of [...] Melton M.D. 03/22/2025 9:46 PM Dictation Location: [place] [address] Transcribed By: [facility] 03/22/252145 Dictated By: Christian Melton DO 03/22/252136 Signed By: 03/22/252145NoWatauga Medical Center Physician GroupCreatinineon 38-95-3486TAZ/1.73 sq M.predicted MDRD (S/P/Bld) [Vol rate/Area]mL/min/{1.73_m2}NormalThe [facility] Physician GroupComment on above:Result Comment: PERFORMED BY: [facility] [address] [place] [id number] PATHOLOGIST SUPERVISOR ENGINE REPAIR AD ROSENBAUM M.D.Performed By: #### BUN, CREAT #### [facility] [address] [place] [address] USACreatinine [Mass/volume] in Serum or PlasmaOrdered By: Chang Russell on 71-67-8750Hnticgdpew [Mass/Vol]0.87 mg/dLNormal0.70-1.30 [facility] HospitalComment on above:Performed By: #### BUN, CREAT #### [facility] [address] [place] [address] USAGlomerular filtration rate [Volume Rate/Area] in Serum, Plasma or Blood by CreatinineOrdered By: Chang Russell on 17-36-4427Lqsbltioou filtration rate [Volume Rate/Area] in Serum, Plasma or Blood by Creatinine> 60.0 mL/MinCommunity Memorial HospitalNo Panel InformationOrdered By: Chang Russell on 78-22-1511Ygievvhm Creatinine Clearance (ChemN/AFFirelands Regional Medical Center South CampusUrea nitrogen [Mass/volume] in Serum or PlasmaOrdered By: Chang Russell on 72-20-1691Hojo nitrogen [Mass/Vol]22 mg/dLNormal7-25[facility] HospitalComment on above:Performed By: #### BUN, CREAT #### [facility] [address] [place], [place] [id number] USAOrders Onlyon 70-76-9840[place]alo [id number] Jeremie Bennett 1940 M Date Provider Department Center 02/06/2025 STACEY ERNANDEZ [facility] Family History Problem Relation Age of Onset Coronary artery disease Mother Kidney disease Mother Heart failure Mother Family Status - Relation Status Age at Mother Father DeceasedNormalUniversity of Dell Children'S Medical CenterOffice Visiton 93-99-0788Cgpvkj-up [id number] Jeremie Bennett 1940 M Date Provider Department Center 12/05/2024 STACEY ERNANDEZ [facility] Family History Problem Relation Age of Onset Coronary artery disease Mother Kidney disease Mother Heart failure Mother Family Status - Relation Status Age at Mother Father Level of Service:[address] [place] OFFICE/OUTPATIENT ESTABLISHED LOW MDM [address] 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 [place] Advance Directives reviewed, present at home. Encouraged [...] maintain a healthy weight. (more content not included)...[facility]UM[facility] Barnesville HospitalComment on above:Result Comment: Electronically Signed By: MARICRUZ TREVINO CNP\.br\Date and Time Signed: 11/21/24 16:03 EDT\.br\Electronically Co-Signed By: Monse Puckett\.br\Date and Time Co-Signed: 11/21/24 14:59EDT Alanine aminotransferase [Enzymatic activity/volume] in Serum or PlasmaOrdered By: Elif Carroll on 58-45-6823DHS [Catalytic activity/Vol]14 U/LNormal7-52 [facility] HospitalComment on above:Performed By: #### ESR #### [facility] [address] [place] [address] USAAlbumin [Mass/volume] in Serum or Plasma by Bromocresol green (BCG) dye binding methoOrdered By: Elif Carroll on 11-20-9697Dcafdbv BCG dye [Mass/Vol]4.2 g/dL3.5-5.7FFirelands Regional Medical Center South CampusAlkaline phosphatase [Enzymatic activity/volume] in Serum or PlasmaOrdered By: Elif Carroll on 75-85-8501FFY [Catalytic activity/Vol]80 U/ZDfcuhn19-709XblppfqnuCommunity Memorial HospitalComment on above:Performed By: #### ESR #### [facility] [address] [place] [address] USAAspartate aminotransferase [Enzymatic activity/volume] in Serum or PlasmaOrdered By: Elif Carroll on 59-84-7232BWI [Catalytic activity/Vol]15 U/MYcnppd39-24NskgffojuCommunity Memorial HospitalComment on above: Performed By: #### ESR #### [facility] [address] [place] [address] USABasophils [#/volume] in Blood by Automated countOrdered By: Elif Carroll on 33-49-4132Qurqsiagg (Bld) [#/Vol]0.0 10*3/uLNormal0.0-0.2 [facility] HospitalComment on above:Performed By: #### ESR #### [facility] [address] [place] [address] USABasophils/100 leukocytes in Blood by Automated count Ordered By: Elif Carroll on 57-33-2682Bhgjotaaa/100 WBC (Bld)0.5 %Normal. [facility] Memorial HospitalComment on above:Performed By: #### ESR #### [facility] [address] [place] [address] USABilirubin.total [Mass/volume] in Serum or PlasmaOrdered By: Elif Carroll on 70-75-7965Pasibbqjj [Mass/Vol]0.4 mg/dLNormal0.3-1.0 [facility] HospitalComment on above:Performed By: #### ESR #### [facility] [address] [place] [address] USACalcium [Mass/volume] in Serum or PlasmaOrdered By: Elif Carroll on 96-95-2631Dbynuhr [Mass/Vol]9.3 mg/dLNormal8.6-10.3FFirelands Regional Medical Center South CampusComment on above:Performed By: #### ESR #### [place] [address] USACapillary blood glucose measurement by glucometer (mass/volume)Ordered By: Tlaib Faustin on 15-41-9929Eheyoio [Mass/Vol]114 mg/dL NormalCommunity Memorial HospitalComment on above:Random Glucose Reference Range is [...] the diagnosis of Diabetes Mellitus. PERFORMED BY: [place] [address] PATHOLOGIST SUPERVISOR ENGINE REPAIR AD ROSENBAUM M.D.Performed By: #### GLULS #### Point of Care testing ,Carbon dioxide, total [Moles/volume] in Serum or PlasmaOrdered By: Elif Carroll on 32-28-3387GB9 [Moles/Vol]26.6 mmol/SNyzfdc93.0-31.0Community Memorial HospitalComment on above:Performed By: #### ESR #### [facility] [address] [place] [address] USAChloride [Moles/volume] in Serum or PlasmaOrdered By: Elif Carroll on 84-98-6434Pmzfmpmy [Moles/Vol]104 mmol/SRpheqb22-041DipeckdgfCommunity Memorial HospitalComment on above:Performed By: #### ESR #### [place] [address] USAComprehensive Metabolic Panelon 71-39-5298Bklbxgc [Mass/Vol]4.2 g/dLNormal3.5-5.7The [facility] Physician GroupComment on above: Performed By: #### ESR #### [facility] [address] [place] [address] USACreatinine Clr Calc Bhybaexj09.92NormalThe [facility] Campus Physician GroupComment on above:Performed By: #### ESR #### [place] [address] USAGFR/1.73 sq M.predicted MDRD (S/P/Bld) [Vol rate/Area] mL/min/{1.73_m2}NormalThe [facility] Physician GroupComment on above:Performed By: #### ESR #### [facility] [address] [place] [address] USACreatinine [Mass/volume] in Serum or PlasmaOrdered By: Elif Carroll on 12-88-3018Dwcsezhyob [Mass/Vol]0.80 mg/dLNormal0.70-1.30 [facility] Memorial HospitalComment on above:Performed By: #### ESR #### [facility] [address] [place] [address] USAEosinophils [#/volume] in Blood by Automated countOrdered By: Elif Carroll on 75-27-2314Emeuhxatdem (Bld) [#/Vol]0.2 10*3/uLNormal0.0-0.45 [facility] HospitalComment on above:Performed By: #### ESR #### [place] [address] USAEosinophils/100 leukocytes in Blood by Automated count Ordered By: Elif Carroll on 96-79-9060Ubtxvnidxhb/100 WBC (Bld)2.9 %Normal. [facility] Memorial HospitalComment on above:Performed By: #### ESR #### [place] [address] USAErythrocyte distribution width [Ratio] by Automated count Ordered By: Elif Carroll on 50-82-7212Zygirkgccgk distribution width (RBC) [Ratio]14.7 %Afofrn26.0-14.8Community Memorial HospitalComment on above: Performed By: #### ESR #### [place] [address] USAErythrocyte morphology finding [Identifier] in Blood Ordered By: Elif Carroll on 51-61-8883LMX morphology finding Nom (Bld)Normal NormalNormalCommunity Memorial HospitalComment on above:Performed By: #### ESR #### [place] [address] USAErythrocytes [#/volume] in Blood by Automated countOrdered By: Elif Carroll on 59-97-2781TFQ (Bld) [#/Vol]4.11 10*6/uLNormal3.90-5.60 [facility] HospitalComment on above:Performed By: #### ESR #### [place] [address] USAGlucose [Mass/volume] in Serum or PlasmaOrdered By: Elif Carroll on 74-43-4586Ssdgxix [Mass/Vol]108 mg/nBTglf06-394BtugtzdtuCommunity Memorial HospitalComment on above:ADA recommended reference rangeRandom Glucose [...] recommended reference rangePerformed By: #### ESR #### [place] [address] USAHematocrit [Volume Fraction] of Blood by Automated count Ordered By: Elif Carroll on 99-04-8308Uwowxllovl (Bld) [Volume fraction]38.5 % Low38.8-50.0Community Memorial HospitalComment on above:Performed By: #### ESR #### [place] [id number] USAHemoglobin [Mass/volume] in BloodOrdered By: Elif Carroll on 27-42-0241Bqwcwilicn (Bld) [Mass/Vol]12.8 g/dLLow13.0-17.0Community Memorial HospitalComment on above:Performed By: #### ESR #### [place] [address] USALeukocytes [#/volume] corrected for nucleated erythrocytes in Blood by Automated counOrdered By: Elif Carroll on 98-65-5696AZI corrected for nucl RBC Auto (Bld) [#/Vol]8.5 10*3/uL4.1-10.5FFirelands Regional Medical Center South CampusLeukocytes [#/volume] in Blood by Automated countOrdered By: Elif Carroll on 13-54-6113DGG (Bld) [#/Vol]8.5 10*3/uLNormal4.1-10.5FFirelands Regional Medical Center South CampusComment on above:Performed By: #### ESR #### [facility] [address] [place] [address] USALymphocytes [#/volume] in Blood by Automated countOrdered By: Elif Carroll on 18-33-0451Sqbgsgkqtja (Bld) [#/Vol]1.9 10*3/uLNormal1.00-4.8 [facility] HospitalComment on above:Performed By: #### ESR #### [place] [address] USALymphocytes/100 leukocytes in Blood by Automated count Ordered By: Elif Carroll on 03-65-7902Rywbntysmik/100 WBC (Bld)22.1 %Normal. [facility] Memorial HospitalComment on above:Performed By: #### ESR #### [address]H [Entitic mass] by Automated countOrdered By: Elif Carroll on 32-72-9164TMW (RBC) [Entitic mass]31.1 krUchyjq82.5-35.2FFirelands Regional Medical Center South CampusComment on above:Performed By: #### ESR #### [address] Auto (RBC) [Mass/Vol]Ordered By: Elif Carroll on 94-97-3163NBGU (RBC) [Mass/Vol]33.2 g/dL32.5-35.6FFirelands Regional Medical Center South CampusMCV [Entitic volume] by Automated countOrdered By: Elif Carroll on 69-17-3700MSY (RBC) [Entitic vol]93.7 bTLfhely99.5-101Community Memorial HospitalComment on above:Performed By: #### ESR #### [place] [address] USAMagnesium [Mass/volume] in Serum or PlasmaOrdered By: Elif Carroll on 34-21-8577Quiifuzlh [Mass/Vol]2.1 mg/dLNormal1.9-2.7FFirelands Regional Medical Center South CampusComment on above:Result Comment: PERFORMED BY: [place] [address] PATHOLOGIST SUPERVISOR ENGINE REPAIR AD ROSENBAUM M.D.Performed By: #### ESR #### [place] [address] USAMonocytes [#/volume] in Blood by Automated countOrdered By: Elif Carroll on 95-34-2966Itjosrmsn (Bld) [#/Vol]0.8 10*3/uLNormal0.0-0.8 [facility] HospitalComment on above:Performed By: #### ESR #### [place] [address] USAMonocytes/100 leukocytes in Blood by Automated count Ordered By: Elif Carroll on 63-60-0497Wtpzxqhum/100 WBC (Bld)9.2 %Normal. [facility] Memorial HospitalComment on above:Performed By: #### ESR #### [place] [address] USANeutrophils [#/volume] in Blood by Automated countOrdered By: Elif Carroll on 59-07-4332Fcykgrzrffk (Bld) [#/Vol]5.6 10*3/uLNormal1.8-7.7 [facility] HospitalComment on above:Performed By: #### ESR #### [place] [address] USANeutrophils/100 leukocytes in Blood by Automated count Ordered By: Elif Carroll on 12-28-6774Ueyxihuufac/100 WBC (Bld)65.3 %Normal. [facility] Memorial HospitalComment on above:Performed By: #### ESR #### [place] [address] USANo Panel InformationOrdered By: lEif Carroll on 11-13-2024 Estimated GFR (CKD-EPI)> 60.0 mL/MinCommunity Memorial HospitalPharmacy Creatinine Clearance (Chem60.92Community Memorial HospitalNucleated erythrocytes [Presence] in Blood by Automated countOrdered By: Elif Carroll on 62-48-4908Lllurvwjs RBC Auto Ql (Bld)0.2 /100{WBC}0-0.5FFirelands Regional Medical Center South CampusPET tumor subq tx strat sb-mton 58-98-5040HTB tumor subq tx strat sb-[facility] [place] [address] [place] [address] Nuclear Medicine Report Signed Patient: Jeremie Bennett MR#: [id number] : 1940 Acct:[id number] Age/Sex: 84 / M ADM Date: 11/23/24 [...] Jr., D.O. 11/13/2024 3:50 PM Dictation Location: [facility]- Transcribed By: [facility] 11/13/24 3160 Dictated By: Mario Urias Jr, DO 11/13/24 1539 Signed By: 11/13/24 1550NoWatauga Medical Center Physician [facility] Health SystemPlatelet adequacy [Presence] in Blood by Light microscopyOrdered By: Elif Carroll on 59-92-7690Itztruuqr LM Ql (Bld)[facility] County HospitalPlatelet mean volume [Entitic volume] in Blood by Automated countOrdered By: Elif Carroll on 11-13-2024 Platelet mean volume (Bld) [Entitic vol]8.4 fLNormal6.6-10.1FFirelands Regional Medical Center South CampusComment on above:Performed By: #### ESR #### [facility] [address] [place] [address] USAPlatelet morphology finding [Identifier] in BloodOrdered By: Elif Carroll on 54-39-7422Eydafuml morphology finding Nom (Bld)The Christ HospitalPlatelets [#/volume] in Blood by Automated countOrdered By: Elif Carroll on 84-58-5487Nsytsgzvw (Bld) [#/Vol]223 10*3/uL Pvoxjl656-419GewsapukoCommunity Memorial HospitalComment on above:Performed By: #### ESR #### [facility] [address] [place] [address] USAPotassium [Moles/volume] in Serum or PlasmaOrdered By: Elif Carroll on 58-27-6454Grwweosqf [Moles/Vol]4.2 mmol/LNormal3.5-5.1FFirelands Regional Medical Center South CampusComment on above:Performed By: #### ESR #### [facility] [address] [place] [address] USAProtein [Mass/volume] in Serum or PlasmaOrdered By: Elif Carroll on 11-55-7084Dzdusek [Mass/Vol]7.3 g/dLNormal6.4-8.9Community Memorial HospitalComment on above:Performed By: #### ESR #### [facility] [address] [place] [address] USAScan and CBCon 10-39-6888Gcid Corpuscular HGB Conc33.2 g/bNMdfrgi49.5-35.6The [facility] Physician GroupComment on above:Performed By: #### ESR #### [facility] [address] [place] [address] USANRBC%0.2 /100{WBC}Normal0-0.5The [facility] Comment on above:Performed By: #### ESR #### [place] [address] USAPlatelet EstimateNormalNormalNormHCA Florida University Hospital Physician GroupComment on above:Performed By: #### ESR #### [place] [address] USAPlatelet MorphologyNormalNormalNormHCA Florida University Hospital Physician GroupComment on above:Result Comment: PERFORMED BY: [place] [address] PATHOLOGIST SUPERVISOR ENGINE REPAIR AD ROSENBAUM M.D.Performed By: #### ESR #### [place] [address] USAWhite Blood Count8.5 [CFU]/mLNormal4.1-10.5The [facility] Physician [facility] Health SystemComment on above:Performed By: #### ESR #### [place] [address] USASerum globulin measurement by calculation (mass/volume) Ordered By: Elif Carroll on 33-06-5657Yjbtsdtp (S) [Mass/Vol]3.1 g/dLNormal [facility] HospitalComment on above:Performed By: #### ESR #### [place] [address] USASerum or plasma albumin/globulin mass ratioOrdered By: Elif Carroll on 64-62-8415Izpkmjf/Globulin [Mass ratio]1.4 {ratio}Normal [facility] HospitalComment on above:Performed By: #### ESR #### [place] [address] USASerum or plasma anion gap determinationOrdered By: Elif Carroll on 35-14-6580Tjlnx gap [Moles/Vol]10.6 mmol/LNormal6.0-15.0[facility] Memorial HospitalComment on above:Performed By: #### ESR #### [facility] [address] [place] [address] USASodium [Moles/volume] in Serum or PlasmaOrdered By: Elif Carroll on 15-02-3121Qocxpo [Moles/Vol]137 mmol/BZxlfnh561-241SlqugkwwrCommunity Memorial HospitalComment on above:Performed By: #### ESR #### [facility] [address] [place] [address] USAUrea nitrogen [Mass/volume] in Serum or PlasmaOrdered By: Elif Carroll on 28-88-0162Iokk nitrogen [Mass/Vol]29 mg/dLHigh7-25Community Memorial HospitalComment on above:Performed By: #### ESR #### [facility] [address] [place] [address] USAAmbulatory Visit Summaryon 36-74-3037Nvttkfjrqg Visit SummaryAmbulatory Visit Summary JEREMIE BENNETT :1940 Visit Date:2024 Ambulatory Visit Instructions Your Diagnosis Dysphagia, unspecified Candidal esophagitis Your Care Team Attending Physician - Demetrius Cooper MD. Primary Care Physician - Demetrius Cooper MD. This Is Your Medications List nystatin (nystatin [...] Film) fluticasone nasal (fluticasone Nasal 0.05 mg/inh Chauvin) furosemide (furosemide 20 mg Tab) irbesartan (irbesartan [...] Wednesday 2:30 PM EDT With: Where: [address] [id number]- Wednesday 1:20 PM EDT With: Demetrius Cooper MD Where: [address] [address]- Medications What How Much When Instructions Unchanged nystatin (nystatin 100,000 units/ mL Oral Susp) 4 Milliliter By Mouth 4 times a day Pickup at [facility] #[facility]21 Unchanged albuterol (Albuterol (Eqv-ProAir HFA) 90 mcg/ [...] fluticasone nasal (fluticasone Nasal 0.05 mg/ inh Chauvin) See instructions USE 1 SPRAY IN BOTH [...] or concerns Unchanged omeprazole (omeprazole 40 mg Marcus) See instructions TAKE 1 CAPSULE BY (more content notincluded)...[facility] Medicine Office/Clinic Noteon 52-39-0964Pbgsvi Medicine Office/Clinic NoteFagaebler children's center Medicine Office/Clinic Note Chief Complaint - [...] QID, # 112 mL, Refills(s) 1, Pharmacy: [id number], 160, cm, 10/30/24 17:38:00 EDT, Height/Length Dosing, [...] to opioid therapy Coronary artery disease involving [place] coronary artery of [place] heart without angina pectoris Diabetic autonomic neuropathy [...] patch(es), Topical, q72hr fluticasone Nasal 0.05 mg/inh Chauvin, See Instructions furosemide 20 mg Tab, 20 mg= 1 tab(s), Oral, Daily irbesartan 300 mg Tab, 300 mg= 1 tab(s), Oral, Daily isosorbide mononitrate, 30 mg, Oral, qAM latanoprost Opth 0.005% Janee metformin 500 mg ER T (more content not included)...[facility] HospitalComment on above:Result Comment: Electronically Signed By: Demetrius Cooper MD\.br\Date and Time Signed: 10/30/24 18:01 EDTAmbulatory Visit Summaryon 61-47-7293Gijejhusqn Visit SummaryAmbulatory Visit Summary JEREMIE BENNETT :1940 [...] Film) fluticasone nasal (fluticasone Nasal 0.05 mg/inh Chauvin) furosemide (furosemide 20 mg Tab) irbesartan (irbesartan [...] Wednesday 2:30 PM EDT With: Where: [address] [address]- Wednesday 3:20 PM EDT With: Hermes CASON, Demetrius [place] Where: [address] [address]- Medications What How Much When Instructions Unchanged [...] fluticasone nasal (fluticasone Nasal 0.05 mg/ inh Chauvin) See instructions USE 1 SPRAY IN BOTH [...] to opioid therapy Coronary artery disease involving [place] coronary artery of [place] heart without angina pectoris Diabetic autonomic neuropathy associated with type 2 diabetes mellitus Diverticulosis FH: stomach can (more content not included)...[facility] Ambulatory Visit SummaryAmbulatory Visit Summary JEREMIE [...] Film) fluticasone nasal (fluticasone Nasal 0.05 mg/inh Chauvin) furosemide (furosemide 20 mg Tab) irbesartan (irbesartan [...] Wednesday 2:30 PM EDT With: Where: [address] [id number]- Wednesday 3:20 PM EDT With: Hermes CASON, Demetrius [place] Where: [address] [id number]- Medications What How Much When Instructions Unchanged [...] fluticasone nasal (fluticasone Nasal 0.05 mg/ inh Chauvin) See instructions USE 1 SPRAY IN BOTH [...] to opioid therapy Coronary artery disease involving [place] coronary artery of [place] heart without angina pectoris Diabetic autonomic neuropathy associated with type 2 diabetes mellitus Diverticulosis FH: stomach cancer Former smoker GERD with apnea Gla (more content not included)...[facility] Medicine Office/Clinic Noteon 00-49-1746Ngkbxn Medicine Office/Clinic NoteFagaebler children's center Medicine Office/Clinic Note Chief Complaint Concerns [...] to opioid therapy Coronary artery disease involving [place] coronary artery of [place] heart without angina pectoris Diabetic autonomic neuropathy [...] Irregular bowel habits Procedure/Surgical (more content not included)...[facility] HospitalComment on above:Result Comment: Electronically Signed By: Hermes CASON, Demetrius Branham.br\Date and Time Signed: 10/12/24 15:08 EDTCapillary blood glucose measurement by glucometer (mass/volume)Ordered By: Veena Adkins on 32-53-6979Iqkgxxe [Mass/Vol]103 mg/dLAdams County Regional Medical Center Comment on above:Random Glucose Reference [...] Point of Care testing ,GLUCOSE POCT GLUCOMETERSon 59-43-2316VRLPDTE8Wpg3: Cleaned [place] WirelessBLUE MOUNTAIN [facility]PITAL AppThwack Glucose [Mass/Vol]103 mg/dLI-70 Community HospitalComment on above:Random Glucose Reference Range is dependent on time and content of last meal. Glucose of more than 200 mg/dL in a nonstressed, ambulatory subject supports the diagnosis of Diabetes Mellitus. [facility] HealthcareGlucose Poct Glucometerson 20-03-0957Ucumnfm7Ssp6: Cleaned Meter [facility] Physician GroupComment on above:Result Comment: PERFORMED BY: [address] [place] [address] PATHOLOGIST SUPERVISOR ENGINE REPAIR HEBER SHANNON M.D.Performed By: #### GLULS #### Point of Care testing ,No Panel InformationOrdered By: Veena Adkins on 87-54-1156Hozutwa Glucose CommentGlu2: cleaned meterTriHealth Bethes[facility] Hospital Medicine Office/Clinic Noteon 20-51-6033Gxzkuh Medicine Office/Clinic NoteShaw Hospital Medicine Office/Clinic Note Chief Complaint ER follow up Abdominal pain and difficulty swallowing HPI Staff 2 week follow up to RUQ pain. Liver US ordered @ [facility]. Instructed to get done if pain worsens. Has since then gone to [facility] ER CC: abdominal pain & [...] day(s), # 140 mL, Refills(s) 0, Pharmacy: [id number], 160, cm, 09/28/24 14:41:00 EDT, Height/Length Dosing, [...] oral thrush. I prescribed Nystatin in a zxtvk-wkt-jwonszh method to effectively address the thrush symptoms [...] to opioid therapy Coronary artery disease involving [place] coronary artery of [place] heart without angina pectoris Diabetic autonomic neuropathy associated with type 2 diabetes mellitus Diverticulo (more content not included)...[facility] Comment on above:Result Comment: Electronically Signed By: Hermes CASON, Demetrius Munroe\Date and Time Signed: 09/28/24 15:12 EDTAlanine aminotransferase [Enzymatic activity/volume] in Serum or PlasmaOrdered By: Maru Hayes on 29-55-4602KAF [Catalytic activity/Vol]Alanine aminotransferase [Enzymatic activity/volume] in Serum or PlasmaCommunity Memorial HospitalALT [Catalytic activity/Vol]9 U/LNormal[address] [place], [place] [address]Comment on above:Performed By: #### CBC, BMP #### [facility] [address] [place] [address] USAAlbumin [Mass/volume] in Serum or Plasma by Bromocresol green (BCG) dye binding methoOrdered By: Maru Hayes on 19-72-0964Kczqoct BCG dye [Mass/Vol]Albumin [Mass/volume] in Serum or Plasma by Bromocresol green (BCG) dye binding metho3.5-5.7FFirelands Regional Medical Center South CampusAlbumin BCG dye [Mass/Vol]3.5 g/dL3.5-5.7FFirelands Regional Medical Center South CampusAlkaline phosphatase [Enzymatic activity/volume] in Serum or PlasmaOrdered By: Maru Hayes on 52-81-0509JLR [Catalytic activity/Vol]Alkaline phosphatase [Enzymatic activity/volume] in Serum or Korkdi40-018BmbghhmyeCommunity Memorial HospitalALP [Catalytic activity/Vol]81 U/LErapip74-099R[address] Comment on above:Performed By: #### CBC, BMP #### [facility] [address] [place] [address] USAAppearance of UrineOrdered By: Maru Hayes on 57-24-7492Toolgvlugp (U)Urine appearanceCleSelect Medical Specialty Hospital - Canton Appearance (U)ClearNormalClearCommunity Memorial HospitalComment on above: Order Comment: Name Collection Type:: Clean-Voided MidstreamPerformed By: #### UA #### [place] [address] USAAspartate aminotransferase [Enzymatic activity/volume] in Serum or PlasmaOrdered By: Maru Hayes on 69-37-0152ITU [Catalytic activity/Vol]Aspartate aminotransferase [Enzymatic activity/volume] in Serum or Iuolfw30-70Ybrflgemx[address] [place], [place] [address]AST [Catalytic activity/Vol]14 U/L Eiydet38-17Pdpdeljkw[address] [place], [place] [address]Comment on above:Performed By: #### CBC, BMP #### [place] [address] USABasic Metabolic Panelon 60-03-2245Xrktqgvtyp Clr Calc Qsgtwdpz11.79NoWatauga Medical Center Physician GroupComment on above:Performed By: #### CBC, BMP #### [place] [address] USAGFR/1.73 sq M.predicted MDRD (S/P/Bld) [Vol rate/Area] mL/min/{1.73_m2}NormalHca Florida [facility] Cities Hospital Physician [facility] Health SystemComment on above:Performed By: #### CBC, BMP #### [place] [address] USABasophils Auto (Bld) [#/Vol]Ordered By: Maru Hayes on 64-05-4469Ekjcpvhis (Bld) [#/Vol]Automated basophil count0.0-0.2FFirelands Regional Medical Center South CampusBasophils [#/volume] in Blood by Automated countOrdered By: Maru Hayes on 05-52-1365Iilgaaulf (Bld) [#/Vol]0.1 10*3/uLNormal0.0-0.2 Community Memorial HospitalComment on above:Result Comment: PERFORMED BY: [place] [address] PATHOLOGIST SUPERVISOR ENGINE REPAIR HEBER SHANNON M.D.Performed By: #### CBC, BMP #### [place] [address] USABasophils/100 WBC Auto (Bld)Ordered By: Maru Hayes on 00-28-0799Lwqbcvken/100 WBC (Bld)Automated basophil %.Community Memorial HospitalBasophils/100 leukocytes in Blood by Automated countOrdered By: Maru Hayes on 09-71-0078Eipujwgjo/100 WBC (Bld)1.2 %Normal.Community Memorial HospitalComment on above:Performed By: #### CBC, BMP #### [facility] [address] [place] [address] USABilirubin Test strip Ql (U)Ordered By: Maru Hayes on 41-94-6041Sdpyonsub Ql (U)Bilirubin.total [Presence] in Urine by Test strip NegativeCommunity Memorial HospitalBilirubin Ql (U)NegativeNegative Community Memorial HospitalBilirubin.direct [Mass/volume] in Serum or PlasmaOrdered By: Maru Hayes on 94-43-0070Hgtvbfrnj.direct [Mass/Vol] Bilirubin.direct [Mass/volume] in Serum or Plasma0.03-0.18FFirelands Regional Medical Center South CampusBilirubin.direct [Mass/Vol]0.10 mg/dL0.03-0.18FFirelands Regional Medical Center South CampusBilirubin.total [Mass/volume] in Serum or PlasmaOrdered By: Maru Hayes on 43-11-8263Gpjrljurq [Mass/Vol]Bilirubin.total [Mass/volume] in Serum or Plasma0.3-1.0Community Memorial HospitalBilirubin [Mass/Vol]0.5 mg/dL Normal0.3-1.0Community Memorial HospitalComment on above:Performed By: #### CBC, BMP #### [facility] [address] [place], [place] [address] USACT abdomen pelvis w conon 94-18-8100SU abdomen pelvis w [facility] Main [place] [address] [place] [address] CT Scan Report Signed Patient: Jeremie Bennett MR#: [id number] 669 : 1940 Acct:[id number] Age/Sex: 83 / M ADM Date: 09/20/24 Loc: ER Room: Type: REG ER Attending Dr: Copies to: Maru Hayes [...] Gordon M.D. 09/20/2024 8:03 PM Dictation Location: [place] [address] Transcribed By: PERLA 09/20/242002 Dictated By: Rafi Gordon II, MD 09/20/241947 Signed By: 09/20/[address] [place] [address] GroupCalcium [Mass/volume] in Serum or PlasmaOrdered By: Maru Hayes on 34-54-9434Fstygrg [Mass/Vol]Calcium [Mass/volume] in Serum or Plasma8.6-10.3FFirelands Regional Medical Center South CampusCalcium [Mass/Vol]9.5 mg/dLNormal8.6-10.3FFirelands Regional Medical Center South CampusComment on above:Performed By: #### CBC, BMP #### [facility] [address] [place] [address] USACarbon dioxide, total [Moles/volume] in Serum or Plasma Ordered By: Maru Hayes on 07-21-5588CQ5 [Moles/Vol]Carbon dioxide, total [Moles/volume] in Serum or Amuuhg76.0-31.0Community Memorial HospitalCO2 [Moles/Vol]26.8 mmol/VWzpftl96.0-31.0Community Memorial HospitalComment on above:Performed By: #### CBC, BMP #### [facility] [address] [place] [address] USAChloride [Moles/volume] in Serum or PlasmaOrdered By: Maru Hayes on 14-41-6628Rpvxuqdt [Moles/Vol]Chloride [Moles/volume] in Serum or Kyrjiw67-462Lozlbbajw[address] [place], [place] [address]Chloride [Moles/Vol]104 mmol/L Tmfvhc60-653Pkdsfdfto[address] [place], [place] [address]Comment on above:Performed By: #### CBC, BMP #### [facility] [address] [place] [address] USAColor Auto (U)Ordered By: Maru Hayes on 09-20-2024 Color (U)Color of Urine by AutoYellowCommunity Memorial HospitalColor of Urine by AutoOrdered By: Maru Hayes on 97-99-4247Hlech (U)Light-yellowNormal YellowCommunity Memorial HospitalComment on above:Order Comment: Name Collection Type:: Clean-Voided MidstreamPerformed By: #### UA #### [place] [address] USAComplete Blood Count Auto Diffon 65-55-4522Letj Corpuscular HGB Conc33.3 g/uHCvboqb69.5-35.6The [facility] Physician GroupComment on above:Performed By: #### CBC, BMP #### [place] [address] USAMonocytes/100 WBC (Bld)22.62 %High0.00-20.00The [facility] Physician GroupComment on above:Result Comment: For adults in ED, MDW > 20.0 may be associated with a higher risk of sepsis during the first 12 hrs of hospital admissionPerformed By: #### CBC, BMP #### [place] [address] USANRBC%0.0 /100{WBC}Normal0-0.5[facility] Comment on above:Performed By: #### CBC, BMP #### [place] [address] USACreatinine [Mass/volume] in Serum or PlasmaOrdered By: Maru Hayes on 98-50-0045Scfdeslewm [Mass/Vol]Creatinine [Mass/volume] in Serum or Plasma0.70-1.30Community Memorial HospitalCreatinine [Mass/Vol] 0.70 mg/dLNormal0.70-1.30Community Memorial HospitalComment on above: Performed By: #### CBC, BMP #### [place] [id number] USAECG 12 lead ECGon 34-17-1522FUV 12 lead [facility] [place] [address] [place] [address] Electrocardiograph Report Signed Patient: Jeremie Bennett MR#: [id number] 669 : 1940 Acct:[id number] Age/Sex: 83 / M ADM Date: 09/20/24 Loc: ER Room: Type: [facility] ER Attending Dr: Ordering Provider: Maru [...] Abnormal ECG Confirmed by Maru Hayes MD ([id number]) on 09/20/2024 11:00:16 PM Referred By: Electronically Signed By: Maru Hayes MD Transcribed By: MUS Signed By Maru Hayes MD 12/08 2300[facility] Physician GroupEosinophils Auto (Bld) [#/Vol] Ordered By: Maru Hayes on 10-25-5979Gezddmdambu (Bld) [#/Vol]Automated eosinophil count0.0-0.45Community Memorial HospitalEosinophils [#/volume] in Blood by Automated countOrdered By: Maru Hayes on 04-10-6385Powvaqyoyho (Bld) [#/Vol]0.3 10*3/uLNormal0.0-0.45Community Memorial HospitalComment on above:Performed By: #### CBC, BMP #### [facility] [address] [place] [address] USAEosinophils/100 WBC Auto (Bld)Ordered By: Maru Hayes on 79-92-4409Rhfceezbhpn/100 WBC (Bld)Automated eosinophil %.Community Memorial HospitalEosinophils/100 leukocytes in Blood by Automated countOrdered By: Maru Hayes on 53-75-8492Kucphdjimtm/100 WBC (Bld)2.5 %Normal.Community Memorial HospitalComment on above:Performed By: #### CBC, BMP #### [facility] [address] [place] [address] USAErythrocyte distribution width Auto (RBC) [Ratio]Ordered By: Maru Hayes on 42-90-9939Yqmrweczupk distribution width (RBC) [Ratio] Erythrocyte distribution width [Ratio] by Automated llzfoTuma98.0-14.8Community Memorial HospitalErythrocyte distribution width [Ratio] by Automated count Ordered By: Maru Hayes on 09-07-1000Ivkqkcklkbe distribution width (RBC) [Ratio]15.9 %High12.0-14.8Community Memorial HospitalComment on above: Performed By: #### CBC, BMP #### [facility] [address] [place] [address] USAErythrocytes [#/volume] in Blood by Automated countOrdered By: Maru Hayes on 91-57-4895XFQ (Bld) [#/Vol]3.85 10*6/uLLow3.90-5.60 Community Memorial HospitalComment on above:Performed By: #### CBC, BMP #### [facility] [address] [place] [address] USAGlobulin Calc (S) [Mass/Vol]Ordered By: Maru Hayes on 64-94-5282Aqiwqmfc (S) [Mass/Vol]Serum globulin measurement by calculation (mass/volume)Community Memorial HospitalGlucose [Mass/volume] in Serum or PlasmaOrdered By: Maru Hayes on 57-90-9327Fvraxsw [Mass/Vol]Glucose [Mass/volume] in Serum or VfwsuuZxfl30-293Fxvrimhqm[address] Comment on above:ADA recommended reference rangeRandom Glucose Reference Range is dependent on time and content of last meal. Glucose of more than 200 mg/dL in a nonstressed, ambulatory subject supports the diagnosisof Diabetes Mellitus. Glucose [Mass/Vol]105 mg/kELppe87-981Efvdmfmuw62 [address] StreetComment on above:ADA recommended reference rangeRandom Glucose [...] reference rangePerformed By: #### CBC, BMP #### [place] [id number] USAGlucose [Mass/volume] in Urine by Test stripOrdered By: Maru Hayes on 99-46-0115Qwczotf Test strip (U) [Mass/Vol]Glucose [Mass/volume] in Urine by Test stripNoOhio Valley Surgical Hospital Glucose Test strip (U) [Mass/Vol]Normal mg/dLNormMarietta Osteopathic ClinicHematocrit Auto (Bld) [Volume fraction]Ordered By: Maru Hayes on 55-77-0766Icwygqfbij (Bld) [Volume fraction]Hematocrit [Volume Fraction] of Blood by Automated nylubWkn79.8-50.0Community Memorial HospitalHematocrit [Volume Fraction] of Blood by Automated countOrdered By: Maru Hayes on 22-56-8988Ookuwtncbe (Bld) [Volume fraction]35.3 %Low38.8-50.0Community Memorial HospitalComment on above:Performed By: #### CBC, BMP #### [facility] [address] [place] [address] USAHemoglobin Test strip Ql (U)Ordered By: Maru Hayes on 10-22-1240Jeviravajn Ql (U)Hemoglobin [Presence] in Urine by Test stripNegative Community Memorial HospitalHemoglobin Ql (U)NegativeNegativeCommunity Memorial HospitalHemoglobin [Mass/volume] in BloodOrdered By: Maru Hayes on 08-93-7531Dsupacgdfk (Bld) [Mass/Vol]Hemoglobin [Mass/volume] in KgngkKhf99.0-17.0Community Memorial HospitalHemoglobin (Bld) [Mass/Vol] 11.8 g/dLLow13.0-17.0Community Memorial HospitalComment on above:Performed By: #### CBC, BMP #### [facility] [address] [place] [address] USAHepatic Panelon 65-09-1075Ujbwhfo [Mass/Vol]3.5 g/dLNormal 3.5-5.7The [facility] Physician GroupComment on above:Performed By: #### CBC, BMP #### [facility] [address] [place] [address] USABilirubin,Indirect0.4 mg/dLNormalThe [facility] Physician GroupComment on above:Performed By: #### CBC, BMP #### [facility] [address] [place] [address] USABilirubin.indirect [Mass/Vol]0.10 mg/dLNormal0.03-0.18The [facility] Physician GroupComment on above:Performed By: #### CBC, BMP #### [facility] [address] [place] [address] USAKetones Test strip Ql (U)Ordered By: Maru Hayes on 61-22-7523Pkxufod Ql (U)Ketones [Presence] in Urine by Test stripNegative Community Memorial HospitalKetones [Presence] in Urine by Test strip Ordered By: Maru Hayes on 31-23-3094Widmecd Ql (U)NegativeNormalNegative Community Memorial HospitalComment on above:Order Comment: Name Collection Type:: Clean-Voided MidstreamPerformed By: #### UA #### [facility] [address] [place] [address] USALeukocyte esterase [Presence] in Urine by Test strip Ordered By: Maru Hayes on 15-16-0163Qvhccfanu esterase Test strip Ql (U) Leukocyte esterase [Presence] in Urine by Test stripNegativeCommunity Memorial HospitalLeukocyte esterase Test strip Ql (U)NegativeNormalNegative Community Memorial HospitalComment on above:Order Comment: Name Collection Type:: Clean-Voided MidstreamPerformed By: #### UA #### [facility] [address] [place] [address] USALeukocytes [#/volume] corrected for nucleated erythrocytes in Blood by Automated counOrdered By: Maru Hayes on 94-36-2849LBS corrected for nucl RBC Auto (Bld) [#/Vol]Leukocytes [#/volume] corrected for nucleated erythrocytes in Blood by Automated counHigh4.1-10.5FFirelands Regional Medical Center South CampusWBC corrected for nucl RBC Auto (Bld) [#/Vol]11.2 10*3/uLHigh4.1-10.5 Community Memorial HospitalLeukocytes [#/volume] in Blood by Automated countOrdered By: Maru Hayes on 92-78-6627DQZ (Bld) [#/Vol]11.2 10*3/uLHigh 4.1-10.5FFirelands Regional Medical Center South CampusComment on above:Performed By: #### CBC, BMP #### [facility] [address] [place] [address] USALipase [Enzymatic activity/volume] in Serum or Plasma Ordered By: Maru Hayes on 87-01-7535Buxxju [Catalytic activity/Vol]Lipase [Enzymatic activity/volume] in Serum or Oqaouv28.0-82.0Community Memorial HospitalLipase [Catalytic activity/Vol]34.0 U/VXraida23.0-82.0Community Memorial HospitalComment on above:Result Comment: PERFORMED BY: [place] [address] PATHOLOGIST SUPERVISOR ENGINE REPAIR HEBER SHANNON M.D.Performed By: #### CBC, BMP #### [place] [id number] USALymphocytes Auto (Bld) [#/Vol]Ordered By: Maru Hayes on 12-14-0252Hpbveuwmihi (Bld) [#/Vol]Lymphocytes [#/volume] in Blood by Automated count1.00-4.8Community Memorial HospitalLymphocytes [#/volume] in Blood by Automated countOrdered By: Maru Hayes on 70-30-5611Wveipldigni (Bld) [#/Vol]2.8 10*3/uLNormal1.00-4.8Community Memorial HospitalComment on above:Performed By: #### CBC, BMP #### [place] [id number] USALymphocytes/100 WBC Auto (Bld)Ordered By: Maru Hayes on 50-65-4776Vrlcexpegsw/100 WBC (Bld)Lymphocytes/100 leukocytes in Blood by Automated count.Community Memorial HospitalLymphocytes/100 leukocytes in Blood by Automated countOrdered By: Maru Hayes on 08-61-5042Xxhseyahvnt/100 WBC (Bld)24.8 %Normal.Community Memorial HospitalComment on above: Performed By: #### CBC, BMP #### [facility] [address] [place] [address] [facility] Auto (RBC) [Entitic mass]Ordered By: Maru Hayes on 30-12-5263OUE (RBC) [Entitic mass]MCH [Entitic mass] by Automated count27.5-35.2 [facility] [Entitic mass] by Automated countOrdered By: Maru Hayes on 46-40-0516LNE (RBC) [Entitic mass]30.5 ywUsjbea00.5-35.2 Community Memorial HospitalComment on above:Performed By: #### CBC, BMP #### [facility] [address] [place] [address] [facility] Auto (RBC) [Mass/Vol]Ordered By: Maru Hayes on 65-76-1508YBKT (RBC) [Mass/Vol]MCHC [Mass/volume] by Automated count32.5-35.6 [facility] HospitalHC (RBC) [Mass/Vol]33.3 g/dL32.5-35.6 [facility] HospitalV Auto (RBC) [Entitic vol]Ordered By: Maru Hayes on 53-97-0676PUZ (RBC) [Entitic vol]MCV [Entitic volume] by Automated count[address] [place] [address] [Entitic volume] by Automated countOrdered By: Maru Hayes on 46-17-6467JOS (RBC) [Entitic vol]91.[address] [place], [place] [address]Comment on above:Performed By: #### CBC, BMP #### [facility] [address] [place] [address] USAMonocyte distribution width [Entitic volume] in Blood by AutomatedOrdered By: Maru Hayes on 68-02-3548Zgppvuvk distribution width Auto (Bld) [Entitic vol]Monocyte distribution width [Entitic volume] in Blood by AutomatedHigh0.00-20.00Community Memorial HospitalComment on above:For adults in ED, MDW > 20.0 may be associated with a higher risk of sepsis during the first 12 hrs of hospital admissionMonocyte distribution width Auto (Bld) [Entitic vol]22.62 %High0.00-20.00Community Memorial HospitalComment on above:For adults in ED, MDW > 20.0 may be associated with a higher risk of sepsis during the first 12 hrs of hospital admissionMonocytes Auto (Bld) [#/Vol] Ordered By: Maru Hayes on 93-95-2493Inmibunti (Bld) [#/Vol]Automated blood monocyte count0.0-0.8Community Memorial HospitalMonocytes [#/volume] in Blood by Automated countOrdered By: Maru Hayes on 17-24-7917Fjpkfqjka (Bld) [#/Vol]0.8 10*3/uLNormal0.0-0.8Community Memorial HospitalComment on above:Performed By: #### CBC, BMP #### [place] [address] USAMonocytes/100 WBC Auto (Bld)Ordered By: Maru Hayes on 12-80-0606Thkuzzeqn/100 WBC (Bld)Automated monocyte %.Community Memorial HospitalMonocytes/100 leukocytes in Blood by Automated countOrdered By: Maru Hayes on 57-41-3735Reeamqfys/100 WBC (Bld)7.2 %Normal.Community Memorial HospitalComment on above:Performed By: #### CBC, BMP #### [place] [id number] USANeutrophils Auto (Bld) [#/Vol]Ordered By: Maru Hayes on 09-73-4779Ebrwugozndt (Bld) [#/Vol]Neutrophils [#/volume] in Blood by Automated count1.8-7.7FFirelands Regional Medical Center South CampusNeutrophils [#/volume] in Blood by Automated countOrdered By: Maru Hayes on 45-81-5417Ddmkjvivguw (Bld) [#/Vol]7.2 10*3/uLNormal1.8-7.7FFirelands Regional Medical Center South CampusComment on above:Performed By: #### CBC, BMP #### [place] [id number] USANeutrophils/100 WBC Auto (Bld)Ordered By: Maru Hayes on 43-48-7214Apuzmbsosxy/100 WBC (Bld)Automated neutrophil %.Community Memorial HospitalNeutrophils/100 leukocytes in Blood by Automated countOrdered By: Maru Hayes on 23-79-7853Flvkmvydvba/100 WBC (Bld)64.3 %Normal.Community Memorial HospitalComment on above:Performed By: #### CBC, BMP #### [facility] [address] [place] [address] USANitrite Test strip Ql (U)Ordered By: Maru Hayes on 95-36-2704Lgjbacb Ql (U)Nitrite [Presence] in Urine by Test stripNegative Community Memorial HospitalNitrite Ql (U)NegativeNegativeCommunity Memorial HospitalNo Panel InformationOrdered By: Maru Hayes on 73-03-7631Dtjfqsdbt GFR (CKD-EPI)> 60.0 mL/MinCommunity Memorial Hospital Pharmacy Creatinine Clearance (Chem59.79[facility] Nucleated erythrocytes [Presence] in Blood by Automated countOrdered By: Maru Hayes on 78-10-1539Rltjysall RBC Auto Ql (Bld)Nucleated erythrocytes [Presence] in Blood by Automated count0-0.5FFirelands [facility] Nucleated RBC Auto Ql (Bld)0.0 /100{WBC}0-0.5FFire[facility] Platelet mean volume Auto (Bld) [Entitic vol]Ordered By: Maru Hayes on 24-15-0829Gcpqaqos mean volume (Bld) [Entitic vol]Platelet mean volume [Entitic volume] in Blood by Automated count6.6-10.1FFirelands Regional Medical [facility] Campus Platelet mean volume [Entitic volume] in Blood by Automated countOrdered By: Maru Hayes on 68-66-8544Fdbkxaco mean volume (Bld) [Entitic vol]8.3 fLNormal 6.6-10.1FFirelands Regional Medical Center South CampusComment on above:Performed By: #### CBC, BMP #### [facility] [address] [place] [address] USAPlatelets Auto (Bld) [#/Vol]Ordered By: Maru Hayes on 30-13-4000Ynrzaenxs (Bld) [#/Vol]Platelets [#/volume] in Blood by Automated kryma903-937OcligfgheCommunity Memorial HospitalPlatelets [#/volume] in Blood by Automated countOrdered By: Maru Hayes on 33-60-4983Kgsfmjeoj (Bld) [#/Vol] 226 10*3/pBGfljvz080-216FucsitvlwCommunity Memorial HospitalComment on above: Performed By: #### CBC, BMP #### [facility] [address] [place] [address] [facility] [employer] 82-92-1055QrebkjxlotMeadows Psychiatric Center Case Information Case Priority: None Programs: -- Referral Source: Learning Program Manager Referral Reason: Care coordination Case Type: Transition [...] to opioid therapy Coronary artery disease involving [place] coronary artery of [place] heart without angina pectoris Diabetic autonomic neuropathy [...] patch(es), Topical, q72hr fluticasone Nasal 0.05 mg/inh [place], See Instructions furosemide 20 mg Tab, 20 [...] OV 09/14, buthe has not heard from [facility], a message sent to clinical for f/u. Patient denies any further questions or concerns. Communication Events Date: September 20, 2024 Method: Phone call Type: Outbound Duration (min): 3 Outcome: Case discussion Contact Type: Patient Contact Name: B (more content not included)...[facility] HospitalPotassium [Moles/volume] in Serum or PlasmaOrdered By: Maru Hayes on 31-10-5780Ywzyxlevc [Moles/Vol]Potassium [Moles/volume] in Serum or Plasma3.5-5.1FFirelands Regional Medical [facility] Potassium [Moles/Vol]4.0 mmol/LNormal3.5-5.1FFirelands [facility] Comment on above:Performed By: #### CBC, BMP #### [address]Protein Test strip (U) [Mass/Vol]Ordered By: Maru Hayes on 23-24-3121Xaqjgsg (U) [Mass/Vol]Protein [Mass/volume] in Urine by Test stripNegativeCommunity Memorial HospitalProtein (U) [Mass/Vol] NegativeNegativeCommunity Memorial HospitalProtein [Mass/volume] in Serum or PlasmaOrdered By: Maru Hayes on 45-66-5502Pfefcvy [Mass/Vol]Protein [Mass/volume] in Serum or Plasma6.4-8.9Community Memorial HospitalProtein [Mass/Vol]6.4 g/dLNormal6.4-8.9Community Memorial HospitalComment on above:Performed By: #### CBC, BMP #### [facility] [address] [place] [address] USARBC Auto (Bld) [#/Vol]Ordered By: Maru Hayes on 30-96-3238DHZ (Bld) [#/Vol]Erythrocytes [#/volume] in Blood by Automated count Low3.90-5.60[facility] Hospital - Dublinerum globulin measurement by calculation (mass/volume)Ordered By: Maru Hayes on 30-26-2143Rjqjrosb (S) [Mass/Vol]2.9 g/dLNoOhio Valley Surgical HospitalComment on above: Performed By: #### CBC, BMP #### [facility] [address] [place] [address] USASerum or plasma albumin/globulin mass ratioOrdered By: Maru Hayes on 87-28-8906Ahwyfly/Globulin [Mass ratio]Serum or plasma albumin/globulin mass ratioCommunity Memorial HospitalAlbumin/Globulin [Mass ratio]1.2 {ratio}NormalCommunity Memorial HospitalComment on above: Performed By: #### CBC, BMP #### [facility] [address] [place] [address] USASerum or plasma anion gap determinationOrdered By: Maru Hayes on 20-85-0088Tkdjs gap [Moles/Vol]Serum or plasma anion gap determination6.0-15.0Community Memorial HospitalAnion gap [Moles/Vol]10.2 mmol/LNormal6.0-15.0Community Memorial HospitalComment on above:Performed By: #### CBC, BMP #### [facility] [address] [place] [address] USASerum or plasma non-glucuronidated bilirubin measurement (mass/volume)Ordered By: Maru Hayes on 42-34-3758Kxhmxzxzm.indirect [Mass/Vol]Serum or plasma non-glucuronidated bilirubin measurement (mass/volume) Community Memorial HospitalBilirubin.indirect [Mass/Vol]0.4 mg/dLSelect Medical OhioHealth Rehabilitation Hospital - Dublinodium [Moles/volume] in Serum or PlasmaOrdered By: Maru Hayes on 75-11-3095Unjglz [Moles/Vol]Sodium [Moles/volume] in Serum or Gozewm609-110YwfabnnjsSelect Medical OhioHealth Rehabilitation Hospital - Dublinodium [Moles/Vol]137 mmol/LNormal 136-145Community Memorial HospitalComment on above:Performed By: #### CBC, BMP #### [facility] [address] [place] [address] USASpecific gravity Test strip (U) [Rel density]Ordered By: Maru Hayes on 92-54-1273Foaiclsm gravity (U) [Rel density]Specific gravity of Urine by Test stripHigh1.001-1.030[facility] Hospital - Dublinpecific gravity (U) [Rel density]1.558Otru3.001-1.030[facility] Troponin I High Sensitivityon 69-12-0625Xshsczzq I High Lxiudntgbcg8Esecuk4-82 [facility] Physician GroupComment on above:Result Comment: The Troponin units of report have been changed to meet the Chest Pain Accreditation requirement, element EC5.M1l2. Troponin units are changed from pg/ml to ng/L. Also, the decimal is removed and results are in whole numbers. PERFORMED BY: [place] [address] PATHOLOGIST SUPERVISOR ENGINE REPAIR HEBER SHANNON M.D.Performed By: #### CBC, BMP #### [facility] [address] [place] [address] USATroponin I.cardiac [Mass/volume] in Serum or Plasma by Detection limit <= 0.01 ng/Ordered By: Maru Hayes on 47-94-5478Iqziqdyz I.cardiac DL <= 0.01 ng/mL [Mass/Vol]Troponin I.cardiac [Mass/volume] in Serum or Plasma by Detection limit <= 0.01 ng/0-20[facility] Comment on above:The Troponin units of report have been changed to meet the Chest Pain Accreditation requirement, element EC5.M1l2. Troponin units are changed from pg/ml to ng/L. Also, the decimal is removed and results are in whole numbers.Troponin I.cardiac [Mass/volume] in Serum or Plasma by Detection limit <= 0.01 ng/mLOrdered By: Maru Hayes on 28-38-9681Xqfkcwfx I.cardiac DL <= 0.01 ng/mL [Mass/Vol]7 ng/L0-20Community Memorial HospitalComment on above:The Troponin units of report have been changed to meet the Chest Pain Accreditation requirement, element EC5.M1l2. Troponin units are changed from pg/ml to ng/L. Also, the decimal is removed and results are in whole numbers. Urea nitrogen [Mass/volume] in Serum or PlasmaOrdered By: Maru Hayes on 93-55-8601Lhav nitrogen [Mass/Vol]Urea nitrogen [Mass/volume] in Serum or Plasma -Community Memorial HospitalUrea nitrogen [Mass/Vol]20 mg/dLNormal12-08 Community Memorial HospitalComment on above:Performed By: #### CBC, BMP #### [facility] [address] [place] [address] USAUrinalysison 77-04-4980Xolsnucdm,UrineNegativeNormal NegativeThe [facility] Physician GroupComment on above:Order Comment: Name Collection Type:: Clean-Voided MidstreamPerformed By: #### UA #### [facility] [address] [place] [address] USAGlucose Ql (U)NormalNormalNormalThe [facility] Physician GroupComment on above:Order Comment: Name Collection Type:: Clean-Voided MidstreamPerformed By: #### UA #### [facility] [address] [place] [address] USANitrite,UrineNegativeNormalNegativeThe [facility] Physician GroupComment on above:Order Comment: Name Collection Type:: Clean-Voided MidstreamPerformed By: #### UA #### [facility] [address] [place] [address] USAOccult Blood,UrineNegativeNormalNegativeThe [facility] [facility] Physician GroupComment on above:Order Comment: Name Collection Type:: Clean- Voided MidstreamResult Comment: PERFORMED BY: [place] [address] PATHOLOGIST SUPERVISOR ENGINE REPAIR HEBER SHANNON M.D.Performed By: #### UA #### [facility] [address] [place] [address] USAProtein,UrineNegativeNormalNegativeThe [facility] Physician GroupComment on above:Order Comment: Name Collection Type:: Clean-Voided MidstreamPerformed By: #### UA #### [place] [address] USASpecificy [place],Urine1.225Zbms0.001-1.030The [facility] Physician GroupComment on above:Order Comment: Name Collection Type:: Clean- Voided MidstreamPerformed By: #### UA #### [facility] [address] [place] [address] USAUrobilinogen,UrineNormalNormalNormalThe [facility] Physician GroupComment on above:Order Comment: Name Collection Type:: Clean- Voided MidstreamPerformed By: #### UA #### [facility] [address] [place] [address] USAUrobilinogen Test strip (U) [Mass/Vol]Ordered By: Maru Hayes on 63-62-2628Lnthcsxjbxto (U) [Mass/Vol]Urobilinogen [Mass/volume] in Urine by Test stripNoOhio Valley Surgical HospitalUrobilinogen (U) [Mass/Vol]Normal mg/dLNoOhio Valley Surgical HospitalWBC Auto (Bld) [#/Vol]Ordered By: Maru Hayes on 53-10-6406FYG (Bld) [#/Vol]Leukocytes [#/volume] in Blood by Automated countHigh4.1-10.5FFirelands Regional Medical Center South CampuspH Test strip (U)Ordered By: Maru Hayes on 58-22-9868wH (U)pH of Urine by Test strip5.0-9.0Community Memorial HospitalpH of Urine by Test strip Ordered By: Maru Hayes on 92-85-0860sE (U)5.0 [pH]Normal5.0-9.0[facility] Memorial HospitalComment on above:Order Comment: Name Collection Type:: Clean-Voided MidstreamPerformed By: #### UA #### [facility] [address] [id number] USAAmbulatory Visit Summaryon 80-82-2342Clwijknrsb Visit SummaryAmbulatory Visit Summary JEREMIE BENNETT :1940 [...] Film) fluticasone nasal (fluticasone Nasal 0.05 mg/inh Chauvin) furosemide (furosemide 20 mg Tab) irbesartan (irbesartan [...] EDT With: Demetrius Cooper MD Where: [address] [address]- Wednesday 2:30 PM EDT With: Where: [address] [address]- Wednesday 3:20 PM EDT With: Demetrius Cooper MD Where: [address] [address]- Medications What How Much When Instructions Unchanged [...] fluticasone nasal (fluticasone Nasal 0.05 mg/ inh Chauvin) See instructions USE 1 SPRAY IN BOTH [...] Cancer associated pain Cervic (more content not included)...[facility] Medicine Office/Clinic Noteon 41-47-1495Gfdxnt Medicine Office/Clinic NoteFagaebler children's center Medicine Office/Clinic Note Chief Complaint ACute [...] to opioid therapy Coronary artery disease involving coyote valley coronary artery of coyote valley heart without angina pectoris Diabetic autonomic neuropathy [...] procedure, Cataract, Cholecystectomy,Co (more content not included)... [facility] HospitalComment on above:Result Comment: Electronically Signed By: Hermes CASON, Demetrius Branham.br\Date and Time Signed: 09/14/24 07:51 EDT [facility] [email or web address] 93-61-4864IvlkgxxsvtNovant Health Rehabilitation Hospital [email or web address] Case Information Case Priority: None Programs: -- Referral Source: Learning Program Manager Referral Reason: Care coordination Case Type: Transition [...] to opioid therapy Coronary artery disease involving coyote valley coronary artery of coyote valley heart without angina pectoris Diabetic autonomic neuropathy [...] patch(es), Topical, q72hr fluticasone Nasal 0.05 mg/inh Chauvin, See Instructions furosemide 20 mg Tab, 20 [...] mg= 1 tab(s), Oral, Daily Potassium Chloride (Nhj-Ktea-Zde M20) 20 mEq oral tablet, extended release [...] Patient states magic peggy (more content not included)...[facility] HospitalC Urineon 09-35-3931Ajhbgpfq identified Cx Nom (U)Microbiology PROCEDURE: Urine Culture [R1] SOURCE: U Random BODY SITE: COLLECTED DATE/TIME: 08/30/2024 10:11 EDT RECEIVED DATE/TIME: 08/30/2024 18:09 EDT START DATE/TIME: 08/30/2024 18:09 EDT FREE TEXT SOURCE: Yajaira Dunn Jodi L FINAL REPORTS Final Report [] Verified Date/Time: 09/01/2024 10:22 EDT 200 cfu/ml Mixed skin contaminants Performing Locations R1: This test was performed at: [facility], [address] [place] [address], [address] [place] [address], OzhazzBulyjtWVUMedicine Barnesville HospitalComment on above:Performed By: #### [id number] #### [facility] [address] [place] [address]Txgurynjts Visit Summaryon 86-91-6928Zmubljekoo Visit Summary Ambulatory Visit Summary JEREMIE BENNETT [...] Film) fluticasone nasal (fluticasone Nasal 0.05 mg/inh Chauvin) furosemide (furosemide 20 mg Tab) irbesartan (irbesartan [...] mL oral solution) potassium chloride (Potassium Chloride (Hae-Ixrg-Nnf M20) 20 mEq oral tablet, extended release) [...] Wednesday 2:30 PM EDT With: Where: [address] [address]- Wednesday 3:20 PM EDT With: Hermes CASON, Demetrius Rosa Where: [address] [address]- Medications What How Much When Instructions Unchanged [...] fluticasone nasal (fluticasone Nasal 0.05 mg/ inh Chauvin) See instructions USE 1 SPRAY IN BOTH [...] DAILY Unchanged ondansetron (onda (more content not included)...[facility] Medicine Office/Clinic Noteon 82-49-2038Uhuhmh Medicine Office/Clinic NoteFagaebler children's center Medicine Office/Clinic Note Chief Complaint Acute [...] Urnls Dip Stick Auto w/o Microscopy POC 29571 2. 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 Diabetic autonomic neuropathy [...] patch(es), Topical, q72hr fluticasone Nasal 0.05 mg/inh Chauvin, See Instructions furosemide 20 mg Tab, 20 [...] Daily Potassium Chloride (Eq (more content not included)...[facility] HospitalComment on above:Result Comment: Electronically Signed By: Yajaira Dunn\Date and Time Signed: 08/30/24 10:45 EDTFamily Medicine Office/Clinic Noteon 66-59-7539Ywsqvg Medicine Office/Clinic NoteFagaebler children's center Medicine Office/Clinic Note Chief Complaint TCM follow up The patient presents with concerns related to chemotherapy and radiation treatment for oropharyngeal carcinoma. HPI Staff Pt presents today for TCM follow up Hospital: [facility] Visit date: 08/19/24 Symptoms the [...] TCM Trans care mgmt 7 day disch 17429 2. Aspiration pneumonia (J69.0: Pneumonitis due to inhalation of food and vomit) Patient improved after antibiotic treatment for aspiration pneumonia. Monitor respiratory status and nutritional challenges affecting swallowing. Ordered: Cardiac Rehab - Ambulatory Referral TCM Trans care mgmt 7 day disch 21192 3. 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 Plan imaging for therapy assessment within three months. Focus on resolving sore throat impacting nutrition. Ordered: Cardiac Rehab - Ambulatory Referral TCM Trans care mgmt 7 day disch 02632 4. 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 Schedule appropriate follow- up tests to monitoroncologic treatment outcomes. Ordered: Cardiac Rehab - Ambulatory Referral TCM Trans care mgmt 7 day disch 66358 5. Immunosuppression (D84.9: Immunodeficiency, unspecified) Continue to see oncology Ordered: Cardiac Rehab - Ambulatory Referral TCM Trans care mgmt 7 day disch 05780 6. 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 Evaluate non-opioid pain relief methods if feasible. Ordered: TCM Trans care mgmt 7 day disch 56077 7. Nausea (R11.0: Nausea) NO issues at this time. Ordered: TCM Trans care mgmt 7 day disch 77526 8. BMI 27.0-27.9,adult (Z68.27: Body mass index [BMI] 27.0-27.9, adult) BMI education adde (more content not included)...[facility] HospitalComment on above:Result Comment: Electronically Signed By: Hermes CASON, Demetrius Branham.br\Date and Time Signed: 08/24/24 09:00 EDTPre-Visit Planningon 08-24-2024 Pre-Visit PlanningPre-Visit Planning From: Bobbi Hall To: Demetrius Cooper MD; Sent: 08/23/2024 16:27:25 EDT Subject: Pre-Visit Planning Due Date/Time: 08/23/2024 16:27:00 EDT Caller Name: JEREMIE BENNETT; Caller Number: H , M Ar Dr. Cooper. During a pre-visit planning chart [...] feel free to contact me at extension [phone]. Thank you! Bobbi Hall LPN Clinical Flat Bed Knitter [place] [address] Extension: [phone] [email or web address] From: Demetrius Cooper MD To: Bobbi Hall; Sent: 08/24/2024 11:34:18 EDT Subject: RE: Pre-Visit Planning Caller Name: JEREMIE BENNETT; Caller Number: H , M [facility]Mag[facility]2024 [facility] Case Information Case Priority: None Programs: -- Referral Source: Learning Program Manager Referral Reason: Care coordination Case Type: Transition Care Management Risk Score: -- Case Status: Enrolled (August 22, 2024) Date Assigned: August 22, 2024 Assigned By: Galileo Tucker Date Enrolled: August 22, 2024 Assigned Primary Personnel: Galileo Tucker Assigned Secondary Personnel: -- Case Physician: Demetrius Cooper MD Ongoing Bloating BMI 29.0-29.9,adult Cervical lymphadenopathy Cervical spondylosis Chronic GERD Coronary artery disease involving coyote valley coronary artery 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 yes, [facility]. Cooper [facility] f/u 08/24/24 at 0745 Did you [...] difficult to swallow Ar (more content not included)...[facility] HospitalAlanine aminotransferase [Enzymatic activity/volume] in Serum or PlasmaOrdered By: Jaiden Nance on 67-11-4081ZEI [Catalytic activity/Vol]Alanine aminotransferase [Enzymatic activity/volume] in Serum or Plasma7-52[facility] Memorial HospitalAlbumin [Mass/volume] in Serum or Plasma by Bromocresol green (BCG) dye binding methoOrdered By: Jaiden Nance on 30-15-0755Oosikgz BCG dye [Mass/Vol] Albumin [Mass/volume] in Serum or Plasma by Bromocresol green (BCG) dye binding methoLow3.5-5.7FFirelands Regional Medical Center South CampusAlkaline phosphatase [Enzymatic activity/volume] in Serum or PlasmaOrdered By: Jaiden Nance on 26-07-7462XKZ [Catalytic activity/Vol]Alkaline phosphatase [Enzymatic activity/volume] in Serum or Asukcb59-328MvmcisfzsCommunity Memorial HospitalAspartate aminotransferase [Enzymatic activity/volume] in Serum or PlasmaOrdered By: Jaiden Nance on 13-29-0189XUA [Catalytic activity/Vol]Aspartate aminotransferase [Enzymatic activity/volume] in Serum or Hecvdn01-19LpjdmvzsdCommunity Memorial Hospital Basophils Auto (Bld) [#/Vol]Ordered By: Jaiden Nance on 86-93-5948Bmcmygygr (Bld) [#/Vol]Automated basophil count0.0-0.2FFirelands Regional Medical Center South Campus Basophils/100 WBC Auto (Bld)Ordered By: Jaiden Nance on 22-93-4766Esccdhweu/100 WBC (Bld)Automated basophil %.Community Memorial HospitalBilirubin.total [Mass/volume] in Serum or PlasmaOrdered By: Jaiden Nance on 49-47-6015Qjecdmbrg [Mass/Vol]Bilirubin.total [Mass/volume] in Serum or Plasma0.3-1.0Community Memorial HospitalCT chest wo conon 94-03-6503JX chest wo [facility] [place] [address] [place] [address] CT Scan Report Signed Patient: Jeremie Bennett MR#: [id number] : 1940 Acct:[id number] Age/Sex: 83 / M ADM Date: 08/20/24 Loc: Room: [address] [place] [address] Type: ADM IN Attending Dr: Jaiden Nance [...] Christian Melton M.D.08/21/2024 5:58 AM Dictation Location: [facility] Transcribed By: [facility] 08/21/24 0558 Dictated By: Christian Melton DO 08/21/24 0555 Signed By: 08/21/24 0558[facility] Physician GroupCalcium [Mass/volume] in Serum or PlasmaOrdered By: Jaiden Nance on 75-95-7876Rrrfzkc [Mass/Vol]Calcium [Mass/volume] in Serum or PlasmaLow8.6-10.3FFirelands Regional Medical Center South Campus Carbon dioxide, total [Moles/volume] in Serum or PlasmaOrdered By: Jaiden Nance on 42-39-9046VR5 [Moles/Vol]Carbon dioxide, total [Moles/volume] in Serum or Thkbew61.0-31.0[facility] Memorial HospitalChloride [Moles/volume] in Serum or PlasmaOrdered By: Jaiden Nance on 78-50-0457Ydcytvtg [Moles/Vol]Chloride [Moles/volume] in Serum or AottonXevb33-490HklfigzdkCommunity Memorial Hospital Complete Blood Count Auto Diffon 57-20-2211Hyjvzpvmc (Bld) [#/Vol]0.0 10*3/uL Normal0.0-0.2The [facility] Physician GroupComment on above:Result Comment: PERFORMED BY: [place] [address] PATHOLOGIST SUPERVISOR ENGINE REPAIR HEBER SHANNON M.D.Performed By: #### CMP, CBC #### [facility] [address] [place] [address] USABasophils/100 WBC (Bld)0.6 %Normal.The [facility] Physician GroupComment on above:Performed By: #### CMP, CBC #### [facility] [address] [place] [address] USAEosinophils (Bld) [#/Vol]0.1 10*3/uLNormal0.0-0.45The [facility] Physician GroupComment on above:Performed By: #### CMP, CBC #### [facility] [address] [place] [address] USAEosinophils/100 WBC (Bld)1.0 %Normal.The [facility] Physician GroupComment on above:Performed By: #### CMP, CBC #### [place] [address] USAErythrocyte distribution width (RBC) [Ratio]14.8 %Normal 12.0-14.8The [facility] Physician GroupComment on above:Performed By: #### CMP, CBC #### [place] [address] USAHematocrit (Bld) [Volume fraction]30.5 %Low38.8-50.0The [facility] Physician GroupComment on above:Performed By: #### CMP, CBC #### [place] [address] USAHemoglobin (Bld) [Mass/Vol]10.4 g/dLLow13.0-17.0The [facility] Physician GroupComment on above:Performed By: #### CMP, CBC #### [place] [address] USALymphocytes (Bld) [#/Vol]0.6 10*3/uLLow1.00-4.8The [facility] Physician GroupComment on above:Performed By: #### CMP, CBC #### [place] [address] USALymphocytes/100 WBC (Bld)9.0 %Normal.The [facility] Physician GroupComment on above:Performed By: #### CMP, CBC #### [place] [address] USAMCH (RBC) [Entitic mass]31.3 srBiqcvz93.5-35.2The [facility] Physician GroupComment on above:Performed By: #### CMP, CBC #### [place] [address] USAMCV (RBC) [Entitic vol]91.6 zPSjdafo38.5-101The [facility] Physician GroupComment on above:Performed By: #### CMP, CBC #### [facility] [address] [place] [address] USAMean Corpuscular HGB Conc34.2 g/gLIdaeub30.5-35.6The [facility] Physician GroupComment on above:Performed By: #### CMP, CBC #### [facility] [address] [place] [address] USAMonocytes (Bld) [#/Vol]0.8 10*3/uLNormal0.0-0.8The [facility] Physician GroupComment on above:Performed By: #### CMP, CBC #### [place] [address] USAMonocytes/100 WBC (Bld)13.6 %Normal.The [facility] Physician GroupComment on above:Performed By: #### CMP, CBC #### [place] [address] USANeutrophils (Bld) [#/Vol]4.7 10*3/uLNormal1.8-7.7The [facility] Physician GroupComment on above:Performed By: #### CMP, CBC #### [place] [address] USANeutrophils/100 WBC (Bld)75.8 %Normal.The [facility] Physician GroupComment on above:Performed By: #### CMP, CBC #### [facility] [address] [place] [address] USANRBC%0.1 /100{WBC}Normal0-0.5The [facility] Comment on above:Performed By: #### CMP, CBC #### [place] [address] USAPlatelet mean volume (Bld) [Entitic vol]8.2 fLNormal 6.6-10.1The [facility] Physician GroupComment on above:Performed By: #### CMP, CBC #### [place] [address] USAPlatelets (Bld) [#/Vol]190 10*3/qNJyxddg195-354Ssl [facility] Physician GroupComment on above:Performed By: #### CMP, CBC #### [facility] [address] [place] [address] USARBC (Bld) [#/Vol]3.33 10*6/uLLow3.90-5.60The [facility] Physician GroupComment on above:Performed By: #### CMP, CBC #### [place] [address] USAWBC (Bld) [#/Vol]6.2 10*3/uLNormal4.1-10.5The [facility] Physician GroupComment on above:Performed By: #### CMP, CBC #### [place] [address] USAComprehensive Metabolic Panelon 85-37-8584Dbciawj [Mass/Vol]2.9 g/dLLow3.5-5.7The [facility] Physician GroupComment on above: Performed By: #### CMP, CBC #### [place] [address] USAAlbumin/Globulin [Mass ratio]1.2 {ratio}NormalThe [facility] Physician GroupComment on above:Performed By: #### CMP, CBC #### [place] [address] USAALP [Catalytic activity/Vol]52 U/KCnzofu50-241Mzy [facility] Physician GroupComment on above:Performed By: #### CMP, CBC #### [place] [address] USAALT [Catalytic activity/Vol]14 U/LNormal7-52The [facility] Physician GroupComment on above:Performed By: #### CMP, CBC #### [place] [address] USAAnion gap [Moles/Vol]9.1 mmol/LNormal6.0-15.0The [facility] Physician GroupComment on above:Performed By: #### CMP, CBC #### [place] [address] USAAST [Catalytic activity/Vol]15 U/DGabjaz38-88Kli [facility] Physician GroupComment on above:Performed By: #### CMP, CBC #### [facility] [address] [place] [address] USABilirubin [Mass/Vol]0.6 mg/dLNormal0.3-1.0The [facility] Physician GroupComment on above:Performed By: #### CMP, CBC #### [facility] [address] [place] [address] USACalcium [Mass/Vol]8.2 mg/dLLow8.6-10.3The [facility] Physician GroupComment on above:Performed By: #### CMP, CBC #### [facility] [address] [place] [address] USAChloride [Moles/Vol]108 mmol/HYscv53-469Qgz [facility] Physician GroupComment on above:Performed By: #### CMP, CBC #### [facility] [address] [place] [address] USACO2 [Moles/Vol]24.2 mmol/LXesegl13.0-31.0The [facility] Physician GroupComment on above:Performed By: #### CMP, CBC #### [facility] [address] [place] [address] USACreatinine [Mass/Vol]0.75 mg/dLNormal0.70-1.30The [facility] Physician GroupComment on above:Performed By: #### CMP, CBC #### [facility] [address] [id number] USACreatinine Clr Calc Ojlqtaml05.79NormalThe [facility] Physician GroupComment on above:Performed By: #### CMP, CBC #### [facility] [address] [id number] USAGFR/1.73 sq M.predicted MDRD (S/P/Bld) [Vol rate/Area] mL/min/{1.73_m2}NormalThe [facility] Physician GroupComment on above:Performed By: #### CMP, CBC #### [facility] [address] [id number] USAGlobulin (S) [Mass/Vol]2.4 g/dLNormalThe [facility] Physician GroupComment on above:Performed By: #### CMP, CBC #### [facility] [address] [place] [address] USAGlucose [Mass/Vol]94 mg/eJLrykwt76-216Mlv [facility] Physician GroupComment on above:Result Comment: Random Glucose Reference Range is dependent on time and content of last meal. Glucose of more than 200 mg/dL in a nonstressed, ambulatory subject supports the diagnosis of Diabetes Mellitus. ADA recommended reference rangePerformed By: #### CMP, CBC #### [facility] [address] [place] [address] USAPotassium [Moles/Vol]3.3 mmol/LLow3.5-5.1The [facility] Physician GroupComment on above:Performed By: #### CMP, CBC #### [place] [address] USAProtein [Mass/Vol]5.3 g/dLLow6.4-8.9The [facility] Physician GroupComment on above:Performed By: #### CMP, CBC #### [place] [address] USASodium [Moles/Vol]138 mmol/SCdjqek280-059Eio [facility] Physician GroupComment on above:Performed By: #### CMP, CBC #### [place] [address] USAUrea nitrogen [Mass/Vol]10 mg/dLNormal7-25The [facility] Physician GroupComment on above:Performed By: #### CMP, CBC #### [place] [address] USACreatinine [Mass/volume] in Serum or PlasmaOrdered By: Jaiden Nance on 94-07-7536Yedovqezzb [Mass/Vol]Creatinine [Mass/volume] in Serum or Plasma0.70-1.30[facility] Memorial HospitalEosinophils Auto (Bld) [#/Vol]Ordered By: Jaiden Nance on 66-78-7082Nrskkxpdczv (Bld) [#/Vol]Automated eosinophil count0.0-0.45[facility] HospitalEosinophils/100 WBC Auto (Bld)Ordered By: Jaiden Nance on 76-16-3448Ddcheufnduj/100 WBC (Bld) Automated eosinophil %.[facility] HospitalErythrocyte distribution width Auto (RBC) [Ratio]Ordered By: Jaiden Nance on 01-96-4977Choentsxrbq distribution width (RBC) [Ratio]Erythrocyte distribution width [Ratio] by Automated count12.0-14.8[facility] Memorial HospitalGlobulin Calc (S) [Mass/Vol]Ordered By: Jaiden Nance on 91-85-9692Hbgxqzni (S) [Mass/Vol]Serum globulin measurement by calculation (mass/volume)[facility] HospitalGlucose [Mass/volume] in Serum or PlasmaOrdered By: Jaiden Nance on 20-46-4426Yyvzosw [Mass/Vol]Glucose [Mass/volume] in Serum or Gzhlln37-634 [facility] HospitalComment on above:ADA recommended reference rangeRandom Glucose Reference Range is dependent on time and content of last meal. Glucose of more than 200 mg/dL in a nonstressed, ambulatory subject supports the diagnosisof Diabetes Mellitus.Hematocrit Auto (Bld) [Volume fraction]Ordered By: Jaiden Nance on 78-82-2233Gmiknabeqr (Bld) [Volume fraction]Hematocrit [Volume Fraction] of Blood by Automated eiatmClp24.8-50.0 [facility] HospitalHemoglobin [Mass/volume] in BloodOrdered By: Jaiden Nance 60-46-2066Lkiwzmoqgd (Bld) [Mass/Vol]Hemoglobin [Mass/volume] in SfaohFlt08.0-17.0[facility] HospitalLeukocytes [#/volume] corrected for nucleated erythrocytes in Blood by Automated counOrdered By: Jaiden Nance on 67-51-6286JKZ corrected for nucl RBC Auto (Bld) [#/Vol] Leukocytes [#/volume] corrected for nucleated erythrocytes in Blood by Automated coun4.1-10.5FFirelands Regional Medical Center South CampusLymphocytes Auto (Bld) [#/Vol] Ordered By: Jaiden Nance on 49-05-8435Fpwrhwtbhjq (Bld) [#/Vol]Lymphocytes [#/volume] in Blood by Automated countLow1.00-4.8[facility] HospitalLymphocytes/100 WBC Auto (Bld)Ordered By: Jaiden Nance on 08-21-2024 Lymphocytes/100 WBC (Bld)Lymphocytes/100 leukocytes in Blood by Automated count. [facility] HospitalH Auto (RBC) [Entitic mass]Ordered By: Jaiden Nance on 11-69-8358NDP (RBC) [Entitic mass]MCH [Entitic mass] by Automated count27.5-35.2FFirelands Regional Medical Center South CampusMCHC Auto (RBC) [Mass/Vol]Ordered By: Jaiden Nance on 69-92-9110TXFF (RBC) [Mass/Vol]MCHC [Mass/volume] by Automated count32.5-35.6FFirelands Regional Medical Center South CampusMCV Auto (RBC) [Entitic vol]Ordered By: Jaiden Nance on 97-50-3962LCN (RBC) [Entitic vol]MCV [Entitic volume] by Automated count83.5-101Community Memorial HospitalMagnesiumon 20-69-4569Hgwhyeazg [Mass/Vol]1.8 mg/dLLow1.9-2.7[facility] Physician GroupComment on above:Result Comment: PERFORMED BY: [place] [address] PATHOLOGIST SUPERVISOR ENGINE REPAIR HEBER SHANNON M.D.Performed By: #### CMP, CBC #### [place] [address] USAMagnesium [Mass/volume] in Serum or PlasmaOrdered By: Jaiden Nance on 38-87-5893Ymqxutqgq [Mass/Vol]Magnesium [Mass/volume] in Serum or PlasmaLow1.9-2.7FFirelands Regional Medical Center South CampusMonocytes Auto (Bld) [#/Vol] Ordered By: Jaiden Nance on 91-14-6178Cfkdpgrkx (Bld) [#/Vol]Automated blood monocyte count0.0-0.8[facility] HospitalMonocytes/100 WBC Auto (Bld)Ordered By: Jaiden Nance on 12-21-7517Kjtjmeyos/100 WBC (Bld)Automated monocyte %.[facility] Memorial HospitalNeutrophils Auto (Bld) [#/Vol] Ordered By: Jaiden Nance on 40-83-2867Mwicufceiml (Bld) [#/Vol]Neutrophils [#/volume] in Blood by Automated count1.8-7.7FFirelands [facility] Campus Neutrophils/100 WBC Auto (Bld)Ordered By: Jaiden Nance on 08-21-2024 Neutrophils/100 WBC (Bld)Automated neutrophil %.[facility] HospitalNo Panel InformationOrdered By: Jaiden Nance on 75-73-4189Dplawgtyt GFR (CKD-EPI)> 60.0 mL/MinCommunity Memorial HospitalPharmacy Creatinine Clearance (Chem59.79Community [facility] HospitalNucleated erythrocytes [Presence] in Blood by Automated countOrdered By: Jaiden Nance on 08-21-2024 Nucleated RBC Auto Ql (Bld)Nucleated erythrocytes [Presence] in Blood by Automated count0-0.5FFirelands Regional Medical Center South CampusPlatelet mean volume Auto (Bld) [Entitic vol]Ordered By: Jaiden Nance on 39-90-0345Diesyzhz mean volume (Bld) [Entitic vol]Platelet mean volume [Entitic volume] in Blood by Automated count6.6-10.1FFirelands Regional Medical Center South CampusPlatelets Auto (Bld) [#/Vol] Ordered By: Jaiden Nance on 78-62-6792Ktppzgjyg (Bld) [#/Vol]Platelets [#/volume] in Blood by Automated taxqq023-809EhznujdkyCommunity Memorial Hospital Potassium [Moles/volume] in Serum or PlasmaOrdered By: Jaiden Nance on 25-09-3396Kgjmfqxot [Moles/Vol]Potassium [Moles/volume] in Serum or PlasmaLow 3.5-5.1FFirelands Regional Medical Center South CampusProtein [Mass/volume] in Serum or Plasma Ordered By: Jiaden Nance on 05-42-5278Mjcxcmm [Mass/Vol]Protein [Mass/volume] in Serum or PlasmaLow6.4-8.9[facility] HospitalRBC Auto (Bld) [#/Vol]Ordered By: Jaiden Nance on 37-52-8484GHZ (Bld) [#/Vol]Erythrocytes [#/volume] in Blood by Automated countLow3.90-5.60[facility] - Dublinerum or plasma albumin/globulin mass ratioOrdered By: Jaiden Nance on 13-46-8003Ukanqme/Globulin [Mass ratio]Serum or plasma albumin/globulin mass ratioSelect Medical OhioHealth Rehabilitation Hospital - Dublinerum or plasma anion gap determination Ordered By: Jaiden Nance on 48-18-2283Mfzut gap [Moles/Vol]Serum or plasma anion gap determination6.0-15.0[facility] - Dublinodium [Moles/volume] in Serum or PlasmaOrdered By: Jaiden Nance on 65-71-9305Atuonk [Moles/Vol] Sodium [Moles/volume] in Serum or Norgxe084-904HpznnlevzCommunity Memorial Hospital Urea nitrogen [Mass/volume] in Serum or PlasmaOrdered By: Jaiden Nance on 71-40-9022Kpnm nitrogen [Mass/Vol]Urea nitrogen [Mass/volume] in Serum or Plasma 7-25Community [facility] HospitalWBC Auto (Bld) [#/Vol]Ordered By: Jaiden Nance on 88-28-3572GGC (Bld) [#/Vol]Leukocytes [#/volume] in Blood by Automated count4.1-10.5FFirelands Regional Medical Center South CampusAlanine aminotransferase [Enzymatic activity/volume] in Serum or PlasmaOrdered By: Louie Marrero on 05-41-9040BAP [Catalytic activity/Vol]Alanine aminotransferase [Enzymatic activity/volume] in Serum or Plasma7-52Community [facility] HospitalAlbumin [Mass/volume] in Serum or Plasma by Bromocresol green (BCG) dye binding metho Ordered By: Louie Marrero on 52-65-4759Humdsdc BCG dye [Mass/Vol]Albumin [Mass/volume] in Serum or Plasma by Bromocresol green (BCG) dye binding methoLow 3.5-5.7FFirelands Regional Medical Center South CampusAlkaline phosphatase [Enzymatic activity/volume] in Serum or PlasmaOrdered By: Louie Marrero on 45-75-5265AVN [Catalytic activity/Vol]Alkaline phosphatase [Enzymatic activity/volume] in Serum or Xlrrha56-122MgfjuftozCommunity Memorial HospitalAppearance of UrineOrdered By: Louie Marrero on 43-04-1860Bqzojhlvsq (U)Urine appearanceCleSelect Medical Specialty Hospital - CantonAspartate aminotransferase [Enzymatic activity/volume] in Serum or PlasmaOrdered By: Louie Marrero on 19-20-4253KAY [Catalytic activity/Vol]Aspartate aminotransferase [Enzymatic activity/volume] in Serum or Lfgjwc26-13ZeeboguflCommunity Memorial HospitalBasophils Auto (Bld) [#/Vol]Ordered By: Louie Marrero on 24-67-2144Pxvzxxfku (Bld) [#/Vol]Automated basophil count 0.0-0.2FFirelands Regional Medical Center South CampusBasophils/100 WBC Auto (Bld)Ordered By: Louie Marrero on 81-00-2136Hucmragrn/100 WBC (Bld)Automated basophil %.Community Memorial HospitalBilirubin Test strip Ql (U)Ordered By: Louie Marrero on 00-64-3315Imnnlrlhv Ql (U)Bilirubin.total [Presence] in Urine by Test strip NegativeCommunity Memorial HospitalBilirubin.total [Mass/volume] in Serum or PlasmaOrdered By: Louie Marrero on 96-09-6307Toaqyummv [Mass/Vol] Bilirubin.total [Mass/volume] in Serum or Plasma0.3-1.0[facility] HospitalBioFire Not Detectedon 24-70-0972GkeDabn Not DetectedNot detected NormalNot DetecteThe [facility] Physician GroupComment on above:Result Comment: This is a duplicate RP2.1 COVID (PCR) result to be used for statistical tracking purpose only. PERFORMED BY: [place] [address] PATHOLOGIST SUPERVISOR ENGINE REPAIR HEBER SHANNON M.D.Performed By: #### CBC, BMP #### [place] [address] USABlood Cultureon 78-42-1507Pzedqqgg identified Cx Nom (Bld) MISSED X1 PT REFUSED TO LET ME TRY AGAIN RN NORRIS KNOWS NO GROWTH 5 DAYS PERFORMED BY: [place] [address] PATHOLOGIST SUPERVISOR ENGINE REPAIR HEBER SHANNON M.D.NormalThe [facility] Physician GroupComment on above: Performed By: #### CMP, CBC #### [place] [address] USABacteria identified Cx Nom (Bld)right chest NO GROWTH 5 DAYS PERFORMED BY: [place] [address] PATHOLOGIST SUPERVISOR ENGINE REPAIR HEBER SHANNON M.D.NormalThe [facility] Physician GroupComment on above: Performed By: #### CMP, CBC #### [place] [id number] USAC reactive protein [Mass/volume] in Serum or PlasmaOrdered By: Louie Marrero on 20-33-2348PNB [Mass/Vol]C reactive protein [Mass/volume] in Serum or PlasmaHigh0.0-0.5FFirelands Regional Medical Center South CampusC-Reactive Protein on 22-89-6253L-Reactive Protein3.3 mg/dLHigh0.0-0.5The [facility] Physician Group Comment on above:Result Comment: PERFORMED BY: [place] [address] PATHOLOGIST SUPERVISOR ENGINE REPAIR HEBER SHANNON M.D.Performed By: #### CMP, CBC #### [place] [id number] USACOVID-19 Detected/Not DetectedOrdered By: Louie Marrero on 19-18-0546BDLM-CoV-2 (COVID-19) RNA MICHELLE+non-probe Ql (Nph)Not detectedNot DetectMercy Health Defiance HospitalComment on above:This is a duplicate RP2.1 COVID (PCR) result to be used for statistical tracking purpose only. Calcium [Mass/volume] in Serum or PlasmaOrdered By: Louie Marrero on 08-20-2024 Calcium [Mass/Vol]Calcium [Mass/volume] in Serum or PlasmaLow8.6-10.3FFirelands Regional Medical Center South CampusCarbon dioxide, total [Moles/volume] in Serum or Plasma Ordered By: Louie Marrero on 92-72-6403KX1 [Moles/Vol]Carbon dioxide, total [Moles/volume] in Serum or Wylncu63.0-31.0[facility] Chloride [Moles/volume] in Serum or PlasmaOrdered By: Louie Marrero on 04-24-3477Axiqcmxz [Moles/Vol]Chloride [Moles/volume] in Serum or Tyexkw56-638 [facility] HospitalColor Auto (U)Ordered By: Louie Marrero on 37-32-1068Swayt (U)Color of Urine by AutoYellowCommunity Memorial Hospital Complete Blood Count Auto Diffon 50-79-1279Zdlpgvnoc (Bld) [#/Vol]0.0 10*3/uL Normal0.0-0.2The [facility] Physician GroupComment on above:Result Comment: PERFORMED BY: [place] [address] PATHOLOGIST SUPERVISOR ENGINE REPAIR HEBER SHANNON M.D.Performed By: #### CMP, CBC #### [facility] [address] [place] [address] USABasophils/100 WBC (Bld)0.5 %Normal.The [facility] Physician GroupComment on above:Performed By: #### CMP, CBC #### [facility] [address] [place] [address] USAEosinophils (Bld) [#/Vol]0.1 10*3/uLNormal0.0-0.45The [facility] Physician GroupComment on above:Performed By: #### CMP, CBC #### [place] [address] USAEosinophils/100 WBC (Bld)0.7 %Normal.The [facility] Physician GroupComment on above:Performed By: #### CMP, CBC #### [facility] [address] [place] [address] USAErythrocyte distribution width (RBC) [Ratio]14.8 %Normal 12.0-14.8The [facility] Physician GroupComment on above:Performed By: #### CMP, CBC #### [place] [address] USAHematocrit (Bld) [Volume fraction]34.2 %Low38.8-50.0The [facility] Physician GroupComment on above:Performed By: #### CMP, CBC #### [facility] [address] [place] [address] USAHemoglobin (Bld) [Mass/Vol]11.4 g/dLLow13.0-17.0The [facility] Physician GroupComment on above:Performed By: #### CMP, CBC #### [facility] [address] [place] [address] USALymphocytes (Bld) [#/Vol]0.8 10*3/uLLow1.00-4.8The [facility] Physician GroupComment on above:Performed By: #### CMP, CBC #### [place] [address] USALymphocytes/100 WBC (Bld)10.5 %Normal.The [facility] Physician GroupComment on above:Performed By: #### CMP, CBC #### [place] [address] USAMCH (RBC) [Entitic mass]31.0 qeRhgfqa16.5-35.2The [facility] Physician GroupComment on above:Performed By: #### CMP, CBC #### [place] [address] USAMCV (RBC) [Entitic vol]92.9 uQMxbfwf99.5-101The [facility] Physician GroupComment on above:Performed By: #### CMP, CBC #### [place] [address] USAMean Corpuscular HGB Conc33.4 g/wUKheznm81.5-35.6The [facility] Physician GroupComment on above:Performed By: #### CMP, CBC #### [place] [address] USAMonocytes (Bld) [#/Vol]0.8 10*3/uLNormal0.0-0.8The [facility] Physician GroupComment on above:Performed By: #### CMP, CBC #### [place] [address] USAMonocytes/100 WBC (Bld)23.19 %High0.00-20.00The [facility] Physician GroupComment on above:Result Comment: For adults in ED, MDW > 20.0 may be associated with a higher risk of sepsis during the first 12 hrs of hospital admissionPerformed By: #### CMP, CBC #### [place] [address] USAMonocytes/100 WBC (Bld)11.3 %Normal.The [facility] Physician GroupComment on above:Performed By: #### CMP, CBC #### [place] [address] USANeutrophils (Bld) [#/Vol]5.7 10*3/uLNormal1.8-7.7The [facility] Physician GroupComment on above:Performed By: #### CMP, CBC #### [place] [address] USANeutrophils/100 WBC (Bld)77.0 %Normal.The [facility] Physician GroupComment on above:Performed By: #### CMP, CBC #### [place] [address] USANRBC%0.2 /100{WBC}Normal0-0.5The [facility] Physician Group Comment on above:Performed By: #### CMP, CBC #### [place] [address] USAPlatelet mean volume (Bld) [Entitic vol]8.1 fLNormal 6.6-10.1The [facility] Physician GroupComment on above:Performed By: #### CMP, CBC #### [address] [address] USAPlatelets (Bld) [#/Vol]234 10*3/kMWjisoo047-349Nzm [facility] Physician GroupComment on above:Performed By: #### CMP, CBC #### [place] [address] USARBC (Bld) [#/Vol]3.68 10*6/uLLow3.90-5.60The [facility] Physician GroupComment on above:Performed By: #### CMP, CBC #### [place] [address] USAWBC (Bld) [#/Vol]7.4 10*3/uLNormal4.1-10.5The [facility] Physician GroupComment on above:Performed By: #### CMP, CBC #### [place] [address] USAComprehensive Metabolic Panelon 42-31-0680Hingfku [Mass/Vol]3.4 g/dLLow3.5-5.7The [facility] Physician GroupComment on above: Performed By: #### CMP, CBC #### [place] [address] USAAlbumin/Globulin [Mass ratio]1.4 {ratio}NormalThe [facility] Physician GroupComment on above:Performed By: #### CMP, CBC #### [place] [address] USAALP [Catalytic activity/Vol]66 U/NNnmytm34-707Fym [facility] Physician GroupComment on above:Performed By: #### CMP, CBC #### [place] [address] USAALT [Catalytic activity/Vol]17 U/LNormal7-52The [facility] Physician GroupComment on above:Performed By: #### CMP, CBC #### [place] [address] USAAnion gap [Moles/Vol]10.3 mmol/LNormal6.0-15.0The [facility] Physician GroupComment on above:Performed By: #### CMP, CBC #### [place] [address] USAAST [Catalytic activity/Vol]18 U/ZBhfgpv95-96Ezn [facility] Physician GroupComment on above:Performed By: #### CMP, CBC #### [place] [address] USABilirubin [Mass/Vol]0.6 mg/dLNormal0.3-1.0The [facility] Physician GroupComment on above:Performed By: #### CMP, CBC #### [place] [address] USACalcium [Mass/Vol]8.4 mg/dLLow8.6-10.3The [facility] Physician GroupComment on above:Performed By: #### CMP, CBC #### [place] [address] USAChloride [Moles/Vol]104 mmol/PDlrwkl51-317Yuh [facility] Physician GroupComment on above:Performed By: #### CMP, CBC #### [place] [address] USACO2 [Moles/Vol]25.4 mmol/KZlfykh11.0-31.0The [facility] Physician GroupComment on above:Performed By: #### CMP, CBC #### [place] [address] USACreatinine [Mass/Vol]0.85 mg/dLNormal0.70-1.30The [facility] Physician GroupComment on above:Performed By: #### CMP, CBC #### [place] [address] USACreatinine Clr Calc Oyktyytx61.71NormHCA Florida University Hospital Physician GroupComment on above:Result Comment: PERFORMED BY: [place] [address] PATHOLOGIST SUPERVISOR ENGINE REPAIR HEBER SHANNON M.D.Performed By: #### CMP, CBC #### [place] [address] USAGFR/1.73 sq M.predicted MDRD (S/P/Bld) [Vol rate/Area] mL/min/{1.73_m2}NormalThe [facility] Physician GroupComment on above:Performed By: #### CMP, CBC #### [place] [address] USAGlobulin (S) [Mass/Vol]2.5 g/dLNoWatauga Medical Center Physician GroupComment on above:Performed By: #### CMP, CBC #### [address] [place] [address] USAGlucose [Mass/Vol]106 mg/fXSmsp85-775Pyi [facility] Physician GroupComment on above:Result Comment: Random Glucose Reference Range is dependent on time and content of last meal. Glucose of more than 200 mg/dL in a nonstressed, ambulatory subject supports the diagnosis of Diabetes Mellitus. ADA recommended reference rangePerformed By: #### CMP, CBC #### [facility] [address] [place] [address] USAPotassium [Moles/Vol]3.7 mmol/LNormal3.5-5.1The [facility] Physician GroupComment on above:Performed By: #### CMP, CBC #### [place] [address] USAProtein [Mass/Vol]5.9 g/dLLow6.4-8.9The [facility] Physician GroupComment on above:Performed By: #### CMP, CBC #### [place] [address] USASodium [Moles/Vol]136 mmol/VFlsweh377-481Xgi [facility] Physician GroupComment on above:Performed By: #### CMP, CBC #### [place] [address] USAUrea nitrogen [Mass/Vol]16 mg/dLNormal7-25The [facility] Physician GroupComment on above:Performed By: #### CMP, CBC #### [place] [address] USACreatinine [Mass/volume] in Serum or PlasmaOrdered By: Louie Marrero on 12-77-0917Muatoaiehi [Mass/Vol]Creatinine [Mass/volume] in Serum or Plasma0.70-1.30[facility] Memorial HospitalECG 12 lead ECGon 04-75-6778ZJT 12 lead [facility]REG[facility] [place] [address] [place] [address] Electrocardiograph Report Signed Patient: Jeremie Bennett MR#: [id number] 669 : 1940 Acct:[id number] Age/Sex: 83 / M ADM Date: 08/20/24 Loc: ER Room: Type: [facility] ER Attending Dr: Ordering Provider: [...] ECGs available Confirmed by LOUIE MARRERO DO ([id number]) on 08/20/2024 7:55:25 PM Referred By: Electronically Signed By: LOUIE MARRERO DO Transcribed By: MUS Signed By Louie Marrero DO 08/20[facility] Physician GroupEosinophils Auto (Bld) [#/Vol]Ordered By: Louie Marrero on 92-32-6576Jyxgvoapwlh (Bld) [#/Vol]Automated eosinophil count0.0-0.45[facility] HospitalEosinophils/100 WBC Auto (Bld) Ordered By: Louie Marrero on 90-31-8403Qawbnzmbora/100 WBC (Bld)Automated eosinophil %.[facility] Memorial HospitalErythrocyte Sedimentation Rateon 97-52-9195AEK (Bld) [Velocity]42 mm/hHigh0-19The [facility]ician Group Comment on above:Result Comment: PERFORMED BY: [place] [address] PATHOLOGIST SUPERVISOR ENGINE REPAIR HEBER SHANNON M.D.Performed By: #### ESR #### [place] [address] USAErythrocyte distribution width Auto (RBC) [Ratio]Ordered By: Louie Marrero on 35-92-7983Hgpjjomibwl distribution width (RBC) [Ratio] Erythrocyte distribution width [Ratio] by Automated count12.0-14.8Community Memorial HospitalErythrocyte sedimentation rate by Photometric method Ordered By: Jaiden Nance on 34-64-2682CGI Photometric method (Bld) [Velocity] Erythrocyte sedimentation rate by Photometric methodHigh0-19Community Memorial HospitalGlobulin Calc (S) [Mass/Vol]Ordered By: Louie Marrero on 66-24-9516Ueppmson (S) [Mass/Vol]Serum globulin measurement by calculation (mass/volume)[facility] Memorial HospitalGlucose [Mass/volume] in Serum or PlasmaOrdered By: Louie Marrero on 63-00-3375Llvwuhr [Mass/Vol]Glucose [Mass/volume] in Serum or EpfpgcKxxb05-617VdkicmwalCommunity Memorial Hospital Comment on above:ADA recommended reference rangeRandom Glucose Reference Range is dependent on time and content of last meal. Glucose of more than 200 mg/dL in a nonstressed, ambulatory subject supports the diagnosisof Diabetes Mellitus. Glucose [Mass/volume] in Urine by Test stripOrdered By: Louie Marrero on 64-48-4907Lldazqq Test strip (U) [Mass/Vol]Glucose [Mass/volume] in Urine by Test stripNormalCommunity Memorial HospitalHematocrit Auto (Bld) [Volume fraction]Ordered By: Louie Marrero on 11-94-7287Cwaqfxljja (Bld) [Volume fraction]Hematocrit [Volume Fraction] of Blood by Automated wmcglZhb92.8-50.0 [facility] HospitalHemoglobin Test strip Ql (U)Ordered By: Louie Marrero on 79-86-7422Wfohqnbhnt Ql (U)Hemoglobin [Presence] in Urine by Test stripNegativeCommunity Memorial HospitalHemoglobin [Mass/volume] in Blood Ordered By: Louie Marrero on 60-76-6857Bleklpdrhg (Bld) [Mass/Vol]Hemoglobin [Mass/volume] in PdcugJxz67.0-17.0[facility] HospitalINR in Platelet poor plasma by Coagulation assayOrdered By: Louie Marrero on 08-20-2024 INR Coag (PPP) [Relative time]INR in Platelet poor plasma by Coagulation assay [facility] HospitalComment on above:INR Therapeutic Range A) Pre- [...] strip Ql (U)Ordered By: Louie Marrero on 09-10-4640Vxuuiwl Ql (U)Ketones [Presence] in Urine by Test stripHighNegMercy Health Allen HospitalLaboratory - Microbiology and Antimicrobial susceptibilityOrdered By: Louie Marrero on 05-49-1314Dwnrbqsk identified Cx Nom (Bld)NO GROWTH 5 DAYSCommunity Memorial HospitalBacteria identified Cx Nom (Bld)NO GROWTH 5 DAYSCommunity Memorial HospitalLactate [Moles/volume] in Serum or PlasmaOrdered By: Louie Marrero on 13-06-0153Vlctvqi [Moles/Vol]Lactate [Moles/volume] in Serum or Plasma0.5-1.9Community [facility] HospitalComment on above:Lactic Acid reference range has been updated to 0.5 1.9 mmol/L and the critical range of 2.0 or greater.Lactic Acidon 08-20-2024 Lactate [Moles/Vol]0.8 mmol/LNormal0.5-1.9The [facility] Physician GroupComment on above:Result Comment: Lactic Acid reference range has been updated to 0.5 ? 1.9 mmol/L and the critical range of 2.0 or greater. PERFORMED BY: [place] [address] PATHOLOGIST SUPERVISOR ENGINE REPAIR HEBER SHANNON M.D.Performed By: #### CMP, CBC #### [facility] [address] [place] [address] USALeukocyte esterase [Presence] in Urine by Test strip Ordered By: Louie Marrero on 71-12-2697Sewkphhxh esterase Test strip Ql (U) Leukocyte esterase [Presence] in Urine by Test stripNegMercy Health Allen HospitalLeukocytes [#/volume] corrected for nucleated erythrocytes in Blood by Automated counOrdered By: Louie Marrero on 25-85-0096TQU corrected for nucl RBC Auto (Bld) [#/Vol]Leukocytes [#/volume] corrected for nucleated erythrocytes in Blood by Automated coun4.1-10.5FFirelands [facility] Lymphocytes Auto (Bld) [#/Vol]Ordered By: Louie Marrero on 61-78-6963Fakzfpdgjrv (Bld) [#/Vol]Lymphocytes [#/volume] in Blood by Automated countLow1.00-4.8 [facility] HospitalLymphocytes/100 WBC Auto (Bld)Ordered By: Louie Marrero on 58-84-3618Gkkicbgzfot/100 WBC (Bld)Lymphocytes/100 leukocytes in Blood by Automated count.[facility] HospitalH Auto (RBC) [Entitic mass]Ordered By: Louie Marrero on 63-43-9708PFY (RBC) [Entitic mass]MCH [Entitic mass] by Automated count27.5-35.2FSelect Medical Specialty Hospital - Columbus SouthHC Auto (RBC) [Mass/Vol]Ordered By: Louie Marrero on 50-17-9304QAOW (RBC) [Mass/Vol]MCHC [Mass/volume] by Automated count32.5-35.6FSelect Medical Specialty Hospital - Columbus SouthV Auto (RBC) [Entitic vol]Ordered By: Louie Marrero on 62-44-0593RXA (RBC) [Entitic vol]MCV [Entitic volume] by Automated count83.5-101 [facility] HospitalMonocyte distribution width [Entitic volume] in Blood by AutomatedOrdered By: Louie Marrero on 03-20-1627Nhmoqjyz distribution width Auto (Bld) [Entitic vol]Monocyte distribution width [Entitic volume] in Blood by AutomatedHigh0.00-20.00[facility] HospitalComment on above:For adults in ED, MDW > 20.0 may be associated with a higher risk of sepsis during the first 12 hrs of hospital admissionMonocytes Auto (Bld) [#/Vol] Ordered By: Louie Marrero on 94-07-6330Wpyeiksym (Bld) [#/Vol]Automated blood monocyte count0.0-0.8[facility] HospitalMonocytes/100 WBC Auto (Bld)Ordered By: Louie Marrero on 51-21-6697Qivvtzlvf/100 WBC (Bld)Automated monocyte %.[facility] Memorial HospitalNeutrophils Auto (Bld) [#/Vol] Ordered By: Louie Marrero on 30-26-6968Zvdadyrbjoo (Bld) [#/Vol]Neutrophils [#/volume] in Blood by Automated count1.8-7.7FFirelands [facility] Neutrophils/100 WBC Auto (Bld)Ordered By: Louie Marrero on 08-20-2024 Neutrophils/100 WBC (Bld)Automated neutrophil %.[facility] Memorial HospitalNitrite Test strip Ql (U)Ordered By: Louie Marrero on 84-09-3267Rrchxbf Ql (U)Nitrite [Presence] in Urine by Test stripNegativeCommunity Memorial HospitalNo Panel InformationOrdered By: Louie Marrero on 98-82-4245Qufzcpsmo GFR (CKD-EPI)> 60.0 mL/MinCommunity Memorial HospitalPharmacy Creatinine Clearance (Chem58.71Community Memorial HospitalNucleated erythrocytes [Presence] in Blood by Automated countOrdered By: Louie Marrero on 08-20-2024 Nucleated RBC Auto Ql (Bld)Nucleated erythrocytes [Presence] in Blood by Automated count0-0.5FFirelands Regional Medical Center South CampusPlatelet mean volume Auto (Bld) [Entitic vol]Ordered By: Louie Marrero on 13-42-5022Jpegfzji mean volume (Bld) [Entitic vol]Platelet mean volume [Entitic volume] in Blood by Automated count6.6-10.1FFirelands Regional Medical Center South CampusPlatelets Auto (Bld) [#/Vol] Ordered By: Louie Marrero on 85-23-1046Aqkscotcu (Bld) [#/Vol]Platelets [#/volume] in Blood by Automated tthsy759-495QmyvhtwyhCommunity Memorial Hospital Potassium [Moles/volume] in Serum or PlasmaOrdered By: Louie Marrero on 56-21-5550Shieldtiv [Moles/Vol]Potassium [Moles/volume] in Serum or Plasma 3.5-5.1FFirelands Regional Medical Center South CampusProtein Test strip (U) [Mass/Vol]Ordered By: Louie Marrero on 23-36-0310Xbbtpyl (U) [Mass/Vol]Protein [Mass/volume] in Urine by Test stripNegMercy Health Allen HospitalProtein [Mass/volume] in Serum or PlasmaOrdered By: Louie Marrero 98-97-4649Dkrznjy [Mass/Vol]Protein [Mass/volume] in Serum or PlasmaLow6.4-8.9[facility] HospitalProthrombin Time INRon 01-34-0776BTO Coag (PPP) [Relative time]1.1 {INR}NormalThe [facility] Physician GroupComment on above:Result Comment: INR Therapeutic [...] heart valves: 3 - 4.5 PERFORMED BY: [place] [address] PATHOLOGIST SUPERVISOR ENGINE REPAIR HEBER SHANNON M.D.Performed By: #### CMP, CBC #### [facility] [address] [place] [address] USAPT Coag (PPP) [Time]12.9 sNormal9.0-12.9The [facility] Physician GroupComment on above:Result Comment: A hematocrit value greater than 55% may lead to inaccurate results in coagulation testing. Patients having hematocrit values >55% require a special collection tube for coagulation studies. Please contact the laboratory at [phone] for redraw instructions.Performed By: #### CMP, CBC #### [facility] [address] [place], [place] [address] USAProthrombin time (PT)Ordered By: Louie Marrero on 04-58-3077BV Coag (PPP) [Time]Prothrombin time (PT)9.0-12.9[facility] Memorial HospitalComment on above:A hematocrit value greater than 55% may lead to inaccurate results in coagulation testing. Patientshaving hematocrit values >55% require a special collection tube for coagulation studies. Please contact the laboratory at [phone] for redraw instructions.RBC Auto (Bld) [#/Vol]Ordered By: Louie Marrero on 47-55-9605PNY (Bld) [#/Vol]Erythrocytes [#/volume] in Blood by Automated countLow3.90-5.60[facility] HospitalRespiratory (Upper) Panel, PCRon 95-15-2235Bkwptnobhdi (Upper) Panel, PCRAdenovirus Not detected Bordetella parapertussis [...] Influenza A H3 Blank Space PERFORMED BY: [place] [address] PATHOLOGIST SUPERVISOR ENGINE REPAIR HEBER SHANNON M.D.[facility] Physician GroupComment on above: Performed By: #### CBC, BMP #### [facility] [address] [place] [address] USARespiratory pathogens DNA and RNA panel - Nasopharynx by MICHELLE with non-probe detectionOrdered By: Louie Marrero on 60-47-0885Bkhhsbfvhrn pathogens DNA and RNA panel MICHELLE+non-probe (Nph)Respiratory pathogens DNA and RNA panel - Nasopharynx by MICHELLE with non-probe detectionSelect Medical OhioHealth Rehabilitation Hospital - Dublinerum or plasma albumin/globulin mass ratioOrdered By: Louie Marrero on 94-52-8945Jnfhrjd/Globulin [Mass ratio]Serum or plasma albumin/globulin mass ratioSelect Medical OhioHealth Rehabilitation Hospital - Dublinerum or plasma anion gap determination Ordered By: Louie Marrero on 71-89-1122Oaojc gap [Moles/Vol]Serum or plasma anion gap determination6.0-15.0[facility] - Dublinodium [Moles/volume] in Serum or PlasmaOrdered By: Louie Marrero on 65-13-9394Tedwmn [Moles/Vol]Sodium [Moles/volume] in Serum or Fxmkzi380-583LsrhrodxkSelect Medical OhioHealth Rehabilitation Hospital - Dublinpecific gravity Test strip (U) [Rel density]Ordered By: Louie Marrero on 91-68-8399Tiygerkr gravity (U) [Rel density]Specific gravity of Urine by Test strip1.001-1.030[facility] Memorial HospitalTroponin I High Sensitivityon 77-48-3329Sjkrfgbf I High Gvoogvyljrs66Dhlzgo4-48Xtq [facility] Physician GroupComment on above:Result Comment: The Troponin units of report have been changed to meet the Chest Pain Accreditation requirement, element EC5.M1l2. Troponin units are changed from pg/ml to ng/L. Also, the decimal is removed and results are in whole numbers. PERFORMED BY: [place] [address] PATHOLOGIST SUPERVISOR ENGINE REPAIR HEBER SHANNON M.D.Performed By: #### UA #### [place] [address] USATroponin I.cardiac [Mass/volume] in Serum or Plasma by Detection limit <= 0.01 ng/Ordered By: Louie Marrero on 65-32-2972Cuddinas I.cardiac DL <= 0.01 ng/mL [Mass/Vol]Troponin I.cardiac [Mass/volume] in Serum or Plasma by Detection limit <= 0.01 ng/0-20[facility] Comment on above:The Troponin units of report have been changed to meet the Chest Pain Accreditation requirement, element EC5.M1l2. Troponin units are changed from pg/ml to ng/L. Also, the decimal is removed and results are in whole numbers.Urea nitrogen [Mass/volume] in Serum or PlasmaOrdered By: Louie Marrero on 49-85-8695Jsdt nitrogen [Mass/Vol]Urea nitrogen [Mass/volume] in Serum or Plasma7-25Community Memorial HospitalUrinalysison 08-20-2024 Appearance (U)ClearNormalClearThe [facility] Physician GroupComment on above: Order Comment: Name Collection Type:: Clean-Voided MidstreamPerformed By: #### UA #### [facility] [address] [place] [address] USABilirubin,UrineNegativeNormalNegativeHca Florida [facility] Hospital Physician GroupComment on above:Order Comment: Name Collection Type:: Clean- Voided MidstreamPerformed By: #### UA #### [address] [address] USAColor (U)Light-YellowNormalYellowHca Florida [facility] Cities Hospital Physician GroupComment on above:Order Comment: Name Collection Type:: Clean-Voided MidstreamPerformed By: #### UA #### [address] [address] USAGlucose Ql (U)NormalNormalNormalThPower County Hospital Physician GroupComment on above:Order Comment: Name Collection Type:: Clean-Voided MidstreamPerformed By: #### UA #### [address] [address] USAKetones Ql (U)1+HighNegativeHca Florida [facility] Cities Hospital Physician Group Comment on above:Order Comment: Name Collection Type:: Clean-Voided Midstream Performed By: #### UA #### [facility] [address] [place] [address] USALeukocyte esterase Test strip Ql (U)NegativeNormalNegative [facility] Physician GroupComment on above:Order Comment: Name Collection Type:: Clean-Voided MidstreamPerformed By: #### UA #### [address] [address] USANitrite,UrineNegativeNormalNegativeHca [facility] Physician GroupComment on above:Order Comment: Name Collection Type:: Clean-Voided MidstreamPerformed By: #### UA #### [address] [address] USAOccult Blood,UrineNegativeNormalNegativeHca [facility] Hospital Physician GroupComment on above:Order Comment: Name Collection Type:: Clean- Voided MidstreamResult Comment: PERFORMED BY: [place] [address] PATHOLOGIST SUPERVISOR ENGINE REPAIR HEBER SHANNON M.D.Performed By: #### UA #### [facility] [address] [place] [address] USApH (U)5.5 [pH]Normal5.0-9.0The [facility] Physician Group Comment on above:Order Comment: Name Collection Type:: Clean-Voided Midstream Performed By: #### UA #### [place] [address] USAProtein,UrineNegativeNormalNegativeThe [facility] Physician GroupComment on above:Order Comment: Name Collection Type:: Clean-Voided MidstreamPerformed By: #### UA #### [place] [address] USASpecificy [place],Urine1.690Djgblc1.001-1.030The [facility] Physician GroupComment on above:Order Comment: Name Collection Type:: Clean- Voided MidstreamPerformed By: #### UA #### [place] [address] USAUrobilinogen,UrineNormalNormalNormalThe [facility] Physician GroupComment on above:Order Comment: Name Collection Type:: Clean- Voided MidstreamPerformed By: #### UA #### [place] [address] USAUrobilinogen Test strip (U) [Mass/Vol]Ordered By: Louie Marrero on 78-87-1335Qksyposdrxpk (U) [Mass/Vol]Urobilinogen [Mass/volume] in Urine by Test stripAdams County Regional Medical CenterWBC Auto (Bld) [#/Vol] Ordered By: Louie Marrero on 53-71-2957LWT (Bld) [#/Vol]Leukocytes [#/volume] in Blood by Automated count4.1-10.5FFirelands Regional Medical Center South CampusX-ray report Ordered By: Rah Benavides on 37-36-9012Gfbur reportREGIONAL MEDICAL [facility] Main [address] [address] XRay Report Signed Patient: Jeremie Bennett MR#: [id number] : 1940 Acct:[id number] Age/Sex: 83 / M ADM Date: 2 5 Loc: ER Room: Type: [facility] ER Attending Dr: Copies to: Louie Marrero DO~ Ordering Provider: Louie Marrero DO Date of Service: 08/20/24 XR/XR chest 1V portable: Fever SINGLE VIEW CHEST CLINICAL HISTORY: Fever, recently finished chemotherapy, cough for 3 weeks COMPARISON: 07/17/2024 FINDINGS: Left-sided pacemaker device. Right-sided Etldbl-u-Meyd. Posterior changes fromprior ACDF. Mildly enlarged cardiac silhouette. Minimal hazy bibasilar opacities similar prior exam. No effusion or pneumothorax. XR/XR chest 1V portable IMPRESSION: MILD BIBASILAR AIRSPACE OPACITIES, THESE APPEAR SIMILAR PRIOR EXAM. Impression dictated by: Rah Benavides M.D.08/20/2024 6:32 PM Dictation Location: [place] [address] Transcribed By: [facility] 08/20/241831 Dictated By: Rah Benavides MD 08/20/241830 Signed By: 08/20/241831 [facility] Work Phone: xr chest 1V portableon 27-84-7917MH chest 1V portable [facility] Main [address] [address] XRay Report Signed Patient: Jeremie Bennett MR#: [id number] : 1940 Acct:[id number] Age/Sex: 83 / M ADM Date: 08/20/24 Loc: ER Room: Type: [facility] ER Attending Dr: Copies to: Louie Marrero DO Ordering Provider: Louie Marrero DO Date of Service: 08/20/24 XR/XR chest 1V portable: Fever SINGLE VIEW CHEST CLINICAL HISTORY: Fever, recently finished chemotherapy, cough for 3 weeks COMPARISON: 07/17/2024 FINDINGS: Left-sided pacemaker device. Right-sided Bruwid-g-Chft. Posterior changes from prior ACDF. Mildly enlarged cardiac silhouette. Minimal hazy bibasilar opacities similar prior exam. No effusion or pneumothorax. XR/XR chest 1V portable IMPRESSION: MILD BIBASILAR AIRSPACE OPACITIES, THESE APPEAR SIMILAR PRIOR EXAM. Impression dictated by: Rah Benavides M.D.08/20/2024 6:32 PM Dictation Location: [place] [address] Transcribed By: PERLA 08/20/241831 Dictated By: Rah Benavides MD 08/20/241830 Signed By: 08/20/241831[facility] Physician GrouppH Test strip (U)Ordered By: Louie Marrero on 40-82-0021cO (U)pH of Urine by Test strip5.0-9.0Community Memorial HospitalAlanine aminotransferase [Enzymatic activity/volume] in Serum or PlasmaOrdered By: Talib Faustin on 21-16-8429JMV [Catalytic activity/Vol]Alanine aminotransferase [Enzymatic activity/volume] in Serum or Plasma7-52[facility] HospitalAlbumin [Mass/volume] in Serum or Plasma by Bromocresol green (BCG) dye binding methoOrdered By: Talib Faustin on 96-48-5861Vhdqbvz BCG dye [Mass/Vol]Albumin [Mass/volume] in Serum or Plasma by Bromocresol green (BCG) dye binding metho3.5-5.7FFirelands Regional Medical Center South CampusAlkaline phosphatase [Enzymatic activity/volume] in Serum or PlasmaOrdered By: Talib Faustin on 62-37-5026ZJU [Catalytic activity/Vol]Alkaline phosphatase [Enzymatic activity/volume] in Serum or Nrnvqp29-050DxciepgbhCommunity Memorial HospitalAspartate aminotransferase [Enzymatic activity/volume] in Serum or Plasma Ordered By: Talib Faustin on 92-26-4038CYE [Catalytic activity/Vol]Aspartate aminotransferase [Enzymatic activity/volume] in Serum or Tjbsxu61-02NibxqygvdCommunity Memorial HospitalBasophils Auto (Bld) [#/Vol]Ordered By: Talib Faustin on 79-88-5657Ooxtycudt (Bld) [#/Vol]Automated basophil count0.0-0.2FFirelands Regional Medical Center South CampusBasophils/100 WBC Auto (Bld)Ordered By: Talib Faustin on 62-68-6543Fjspnysel/100 WBC (Bld)Automated basophil %.Community Memorial HospitalBilirubin.total [Mass/volume] in Serum or PlasmaOrdered By: Talib Faustin on 51-10-0598Obndoqvfn [Mass/Vol]Bilirubin.total [Mass/volume] in Serum or Plasma0.3-1.0[facility] HospitalCalcium [Mass/volume] in Serum or PlasmaOrdered By: Talib Faustin on 53-95-5074Ujbtafj [Mass/Vol]Calcium [Mass/volume] in Serum or Plasma8.6-10.3FFirelands Regional Medical Center South CampusCarbon dioxide, total [Moles/volume] in Serum or PlasmaOrdered By: Talib Faustin on 11-98-6371JS6 [Moles/Vol]Carbon dioxide, total [Moles/volume] in Serum or Plasma 21.0-31.0[facility] HospitalChloride [Moles/volume] in Serum or PlasmaOrdered By: rick Faustin on 15-53-6942Krcwtoim [Moles/Vol]Chloride [Moles/volume] in Serum or Bbdhnm20-138HttyduefzCommunity Memorial HospitalComplete Blood Count Auto Diffon 54-06-4112Evxriontc (Bld) [#/Vol]0.1 10*3/uLNormal 0.0-0.2The [facility] Physician GroupComment on above:Result Comment: PERFORMED BY: [facility] [address] [place] [address] PATHOLOGIST SUPERVISOR ENGINE REPAIR HEBER SHANNON M.D.Performed By: #### CMP, CBC #### [facility] [address] [place] [address] USABasophils/100 WBC (Bld)1.1 %Normal.The [facility] Physician GroupComment on above:Performed By: #### CMP, CBC #### [facility] [address] [place] [address] USAEosinophils (Bld) [#/Vol]0.1 10*3/uLNormal0.0-0.45The [facility] Physician GroupComment on above:Performed By: #### CMP, CBC #### [place] [address] USAEosinophils/100 WBC (Bld)0.7 %Normal.The [facility] Physician GroupComment on above:Performed By: #### CMP, CBC #### [place] [address] USAErythrocyte distribution width (RBC) [Ratio]15.2 %High 12.0-14.8The [facility] Physician GroupComment on above:Performed By: #### CMP, CBC #### [place] [address] USAHematocrit (Bld) [Volume fraction]34.8 %Low38.8-50.0The [facility] Physician GroupComment on above:Performed By: #### CMP, CBC #### [place] [address] USAHemoglobin (Bld) [Mass/Vol]11.7 g/dLLow13.0-17.0The [facility] Physician GroupComment on above:Performed By: #### CMP, CBC #### [place] [address] USALymphocytes (Bld) [#/Vol]0.6 10*3/uLLow1.00-4.8The [facility] Physician GroupComment on above:Performed By: #### CMP, CBC #### [place] [address] USALymphocytes/100 WBC (Bld)6.4 %Normal.The [facility] Physician GroupComment on above:Performed By: #### CMP, CBC #### [place] [address] USAMCH (RBC) [Entitic mass]30.8 naLrxasj33.5-35.2The [facility] Physician GroupComment on above:Performed By: #### CMP, CBC #### [facility] [address] [place] [address] USAMCV (RBC) [Entitic vol]91.9 bHPhdhrn97.5-101The [facility] Physician GroupComment on above:Performed By: #### CMP, CBC #### [facility] [address] [place] [address] USAMean Corpuscular HGB Conc33.5 g/jVReyicx00.5-35.6The [facility] Physician GroupComment on above:Performed By: #### CMP, CBC #### [facility] [address] [place] [address] USAMonocytes (Bld) [#/Vol]1.1 10*3/uLHigh0.0-0.8The [facility] Physician GroupComment on above:Performed By: #### CMP, CBC #### [facility] [address] [place] [address] USAMonocytes/100 WBC (Bld)12.6 %Normal.The [facility] Physician GroupComment on above:Performed By: #### CMP, CBC #### [facility] [address] [place] [address] USANeutrophils (Bld) [#/Vol]7.2 10*3/uLNormal1.8-7.7The [facility] Physician GroupComment on above:Performed By: #### CMP, CBC #### [facility] [address] [place] [address] USANeutrophils/100 WBC (Bld)79.2 %Normal.The [facility] Physician GroupComment on above:Performed By: #### CMP, CBC #### [facility] [address] [place] [address] USANRBC%0.1 /100{WBC}Normal0-0.5The [facility] Physician Group Comment on above:Performed By: #### CMP, CBC #### [facility] [address] [place] [address] USAPlatelet mean volume (Bld) [Entitic vol]7.5 fLNormal 6.6-10.1The [facility] Physician GroupComment on above:Performed By: #### CMP, CBC #### [facility] [address] [place] [address] USAPlatelets (Bld) [#/Vol]236 10*3/cMIahjiw246-764Jog [facility] Physician GroupComment on above:Performed By: #### CMP, CBC #### [place] [address] USARBC (Bld) [#/Vol]3.79 10*6/uLLow3.90-5.60The [facility] Physician GroupComment on above:Performed By: #### CMP, CBC #### [place] [address] USAWBC (Bld) [#/Vol]9.1 10*3/uLNormal4.1-10.5The [facility] Physician GroupComment on above:Performed By: #### CMP, CBC #### [place] [address] USAComprehensive Metabolic Panelon 89-30-0845Bwmbksk [Mass/Vol]3.6 g/dLNormal3.5-5.7The [facility] Physician GroupComment on above: Performed By: #### CMP, CBC #### [place] [address] USAAlbumin/Globulin [Mass ratio]1.4 {ratio}NormalThe [facility] Physician GroupComment on above:Performed By: #### CMP, CBC #### [place] [address] USAALP [Catalytic activity/Vol]73 U/TZuwqjn82-749Ynw [facility] Physician GroupComment on above:Performed By: #### CMP, CBC #### [place] [address] USAALT [Catalytic activity/Vol]14 U/LNormal7-52The [facility] Physician GroupComment on above:Performed By: #### CMP, CBC #### [place] [address] USAAnion gap [Moles/Vol]10.5 mmol/LNormal6.0-15.0The [facility] Physician GroupComment on above:Performed By: #### CMP, CBC #### [facility] [address] [place] [address] USAAST [Catalytic activity/Vol]13 U/SRjnbrl25-35Jgg [facility] Physician GroupComment on above:Performed By: #### CMP, CBC #### [facility] [address] [place] [address] USABilirubin [Mass/Vol]0.4 mg/dLNormal0.3-1.0The [facility] Physician GroupComment on above:Performed By: #### CMP, CBC #### [facility] [address] [place] [address] USACalcium [Mass/Vol]8.6 mg/dLNormal8.6-10.3The [facility] Physician GroupComment on above:Performed By: #### CMP, CBC #### [facility] [address] [place] [address] USAChloride [Moles/Vol]107 mmol/ZPtmowr68-149Wxy [facility] Physician GroupComment on above:Performed By: #### CMP, CBC #### [facility] [address] [place] [address] USACO2 [Moles/Vol]24.4 mmol/FCvfozq48.0-31.0The [facility] Physician GroupComment on above:Performed By: #### CMP, CBC #### [facility] [address] [place] [address] USACreatinine [Mass/Vol]0.83 mg/dLNormal0.70-1.30The [facility] Physician GroupComment on above:Performed By: #### CMP, CBC #### [facility] [address] [place] [address] USACreatinine Clr Calc Vrwipoxi69.79NormalThe [facility] Physician GroupComment on above:Result Comment: PERFORMED BY: [place] [address] PATHOLOGIST SUPERVISOR ENGINE REPAIR HEBER SHANNON M.D.Performed By: #### CMP, CBC #### [place] [address] USAGFR/1.73 sq M.predicted MDRD (S/P/Bld) [Vol rate/Area] mL/min/{1.73_m2}NormalThe [facility] Physician GroupComment on above:Performed By: #### CMP, CBC #### [place] [address] USAGlobulin (S) [Mass/Vol]2.6 g/dLNormalThe [facility] Physician GroupComment on above:Performed By: #### CMP, CBC #### [place] [address] USAGlucose [Mass/Vol]119 mg/jGWzhj16-915Ooc [facility] Physician GroupComment on above:Result Comment: Random Glucose Reference Range is dependent on time and content of last meal. Glucose of more than 200 mg/dL in a nonstressed, ambulatory subject supports the diagnosis of Diabetes Mellitus. ADA recommended reference rangePerformed By: #### CMP, CBC #### [place] [address] USAPotassium [Moles/Vol]3.9 mmol/LNormal3.5-5.1The [facility] Physician GroupComment on above:Performed By: #### CMP, CBC #### [place] [address] USAProtein [Mass/Vol]6.2 g/dLLow6.4-8.9The [facility] Physician GroupComment on above:Performed By: #### CMP, CBC #### [place] [address] USASodium [Moles/Vol]138 mmol/JJzklqn423-516Jvs [facility] Physician GroupComment on above:Performed By: #### CMP, CBC #### [place] [address] USAUrea nitrogen [Mass/Vol]19 mg/dLNormal7-25The [facility] Physician GroupComment on above:Performed By: #### CMP, CBC #### [place] [address] USACreatinine [Mass/volume] in Serum or PlasmaOrdered By: rick Faustin on 58-93-0455Wgjnsrhaje [Mass/Vol]Creatinine [Mass/volume] in Serum or Plasma0.70-1.30[facility] HospitalEosinophils Auto (Bld) [#/Vol]Ordered By: rick Faustin on 51-25-8683Qvywfioiesh (Bld) [#/Vol] Automated eosinophil count0.0-0.45[facility] Eosinophils/100 WBC Auto (Bld)Ordered By: [facility] Ramin on 08-16-2024 Eosinophils/100 WBC (Bld)Automated eosinophil %.[facility] HospitalErythrocyte distribution width Auto (RBC) [Ratio]Ordered By: rick Hargrove on 42-41-4244Ovotgcdxebt distribution width (RBC) [Ratio]Erythrocyte distribution width [Ratio] by Automated uvfviMyld95.0-14.8[facility] HospitalGlobulin Calc (S) [Mass/Vol]Ordered By: rick Faustin on 71-37-0577Ystdemmh (S) [Mass/Vol]Serum globulin measurement by calculation (mass/volume)[facility] HospitalGlucose [Mass/volume] in Serum or PlasmaOrdered By: rick Faustin on 66-07-5841Tlqjjyp [Mass/Vol]Glucose [Mass/volume] in Serum or OpnxleNwvk02-994KntbrqrseCommunity Memorial Hospital Comment on above:ADA recommended reference rangeRandom Glucose Reference Range is dependent on time and content of last meal. Glucose of more than 200 mg/dL in a nonstressed, ambulatory subject supports the diagnosisof Diabetes Mellitus. Hematocrit Auto (Bld) [Volume fraction]Ordered By: rick Faustin on 08-16-2024 Hematocrit (Bld) [Volume fraction]Hematocrit [Volume Fraction] of Blood by Automated ktvwwQyd50.8-50.0[facility] HospitalHemoglobin [Mass/volume] in BloodOrdered By: rick Faustin on 94-82-8914Gijqwbzpai (Bld) [Mass/Vol]Hemoglobin [Mass/volume] in QruoiZkg64.0-17.0[facility] HospitalLeukocytes [#/volume] corrected for nucleated erythrocytes in Blood by Automated counOrdered By: Talib Faustin on 47-86-5063LAH corrected for nucl RBC Auto (Bld) [#/Vol]Leukocytes [#/volume] corrected for nucleated erythrocytes in Blood by Automated coun4.1-10.5FFirelands Regional Medical [facility] Campus Lymphocytes Auto (Bld) [#/Vol]Ordered By: Talib Faustin on 08-16-2024 Lymphocytes (Bld) [#/Vol]Lymphocytes [#/volume] in Blood by Automated countLow 1.00-4.8[facility] HospitalLymphocytes/100 WBC Auto (Bld)Ordered By: Talib Faustin on 76-47-9659Deecrscreai/100 WBC (Bld)Lymphocytes/100 leukocytes in Blood by Automated count.[facility] HospitalMCH Auto (RBC) [Entitic mass]Ordered By: Talib Faustin on 94-80-3699YHK (RBC) [Entitic mass]MCH [Entitic mass] by Automated count27.5-35.2FFirelands Regional Medical Center South CampusMCHC Auto (RBC) [Mass/Vol]Ordered By: Talib Faustin on 67-15-9541JYKJ (RBC) [Mass/Vol]MCHC [Mass/volume] by Automated count32.5-35.6FFirelands Regional Medical Center South CampusMCV Auto (RBC) [Entitic vol]Ordered By: Talib Faustin on 75-24-7459DFA (RBC) [Entitic vol]MCV [Entitic volume] by Automated count83.5-101 [facility] HospitalMonocytes Auto (Bld) [#/Vol]Ordered By: Talib Hargrove on 73-40-0957Safabzasz (Bld) [#/Vol]Automated blood monocyte countHigh 0.0-0.8[facility] HospitalMonocytes/100 WBC Auto (Bld)Ordered By: Talib Faustin on 58-31-5184Gaycjvpcj/100 WBC (Bld)Automated monocyte %. [facility] HospitalNeutrophils Auto (Bld) [#/Vol]Ordered By: Talib Faustin on 03-10-1329Vdepguzikrf (Bld) [#/Vol]Neutrophils [#/volume] in Blood by Automated count1.8-7.7FFirelands Regional Medical Center South CampusNeutrophils/100 WBC Auto (Bld)Ordered By: Talib Faustin on 69-23-1891Xzuniwuoytk/100 WBC (Bld) Automated neutrophil %.[facility] HospitalNo Panel Information Ordered By: Talib Faustin on 10-41-0484Mrmsehton GFR (CKD-EPI)> 60.0 mL/Min [facility] HospitalPharmacy Creatinine Clearance (Chem59.79 [facility] HospitalNucleated erythrocytes [Presence] in Blood by Automated countOrdered By: Talib Faustin on 94-45-6928Hazagwqcc RBC Auto Ql (Bld)Nucleated erythrocytes [Presence] in Blood by Automated count0-0.5FFirelands Regional Medical Center South CampusPlatelet mean volume Auto (Bld) [Entitic vol]Ordered By: Talib Faustin on 81-09-0582Iaoafnsr mean volume (Bld) [Entitic vol]Platelet mean volume [Entitic volume] in Blood by Automated count6.6-10.1FFirelands Regional Medical Center South CampusPlatelets Auto (Bld) [#/Vol]Ordered By: Talib Faustin on 09-72-1776Fpomkjcjp (Bld) [#/Vol]Platelets [#/volume] in Blood by Automated unbia632-258EzulejtfaCommunity Memorial HospitalPotassium [Moles/volume] in Serum or PlasmaOrdered By: Talib Faustin on 09-22-2309Ztkvgirdr [Moles/Vol]Potassium [Moles/volume] in Serum or Plasma3.5-5.1FFirelands Regional Medical Center South CampusProtein [Mass/volume] in Serum or PlasmaOrdered By: Talib Faustin on 61-04-2101Zaogxfp [Mass/Vol]Protein [Mass/volume] in Serum or PlasmaLow6.4-8.9[facility] HospitalRBC Auto (Bld) [#/Vol]Ordered By: Talib Faustin on 63-58-2538NNV (Bld) [#/Vol]Erythrocytes [#/volume] in Blood by Automated countLow3.90-5.60 [facility] - Dublinerum or plasma albumin/globulin mass ratio Ordered By: Talib Faustin on 15-16-9226Akuchcw/Globulin [Mass ratio]Serum or plasma albumin/globulin mass ratioSelect Medical OhioHealth Rehabilitation Hospital - Dublinerum or plasma anion gap determinationOrdered By: rick Faustin on 86-43-5218Plvip gap [Moles/Vol]Serum or plasma anion gap determination6.0-15.0[facility] - Dublinodium [Moles/volume] in Serum or PlasmaOrdered By: rick Faustin on 05-67-5611Ngkaec [Moles/Vol]Sodium [Moles/volume] in Serum or Cgwytl964-951 [facility] HospitalUrea nitrogen [Mass/volume] in Serum or Plasma Ordered By: Talib Faustin on 01-57-9660Jigr nitrogen [Mass/Vol]Urea nitrogen [Mass/volume] in Serum or Plasma7-25[facility] HospitalWBC Auto (Bld) [#/Vol]Ordered By: Talib Faustin on 70-60-2799CZH (Bld) [#/Vol]Leukocytes [#/volume] in Blood by Automated count4.1-10.5FFirelands [facility] Campus Complete Blood Count Auto Diffon 38-69-1709Fupvwfnnu (Bld) [#/Vol]0.0 10*3/uL Normal0.0-0.2The [facility] Physician GroupComment on above:Result Comment: PERFORMED BY: [facility] [address] [place] [address] PATHOLOGIST SUPERVISOR ENGINE REPAIR HEBER SHANNON M.D.Performed By: #### CMP, CBC #### [facility] [address] [place] [address] USABasophils/100 WBC (Bld)0.4 %Normal.The [facility] Physician GroupComment on above:Performed By: #### CMP, CBC #### [facility] [address] [place] [address] USAEosinophils (Bld) [#/Vol]0.0 10*3/uLNormal0.0-0.45The [facility] Physician GroupComment on above:Performed By: #### CMP, CBC #### [place] [address] USAEosinophils/100 WBC (Bld)0.5 %Normal.The [facility] Physician GroupComment on above:Performed By: #### CMP, CBC #### [place] [address] USAErythrocyte distribution width (RBC) [Ratio]14.7 %Normal 12.0-14.8The [facility] Physician GroupComment on above:Performed By: #### CMP, CBC #### [place] [address] USAHematocrit (Bld) [Volume fraction]36.9 %Low38.8-50.0The [facility] Physician GroupComment on above:Performed By: #### CMP, CBC #### [place] [address] USAHemoglobin (Bld) [Mass/Vol]12.4 g/dLLow13.0-17.0The [facility] Physician GroupComment on above:Performed By: #### CMP, CBC #### [place] [address] USALymphocytes (Bld) [#/Vol]0.6 10*3/uLLow1.00-4.8The [facility] Physician GroupComment on above:Performed By: #### CMP, CBC #### [place] [address] USALymphocytes/100 WBC (Bld)7.4 %Normal.The [facility] Physician GroupComment on above:Performed By: #### CMP, CBC #### [place] [address] USAMCH (RBC) [Entitic mass]30.9 yqHuxesl69.5-35.2The [facility] Physician GroupComment on above:Performed By: #### CMP, CBC #### [place] [address] USAMCV (RBC) [Entitic vol]92.2 eSDjpvxz66.5-101The [facility] Physician GroupComment on above:Performed By: #### CMP, CBC #### [place] [address] USAMean Corpuscular HGB Conc33.6 g/gWXgrboi99.5-35.6The [facility] Physician GroupComment on above:Performed By: #### CMP, CBC #### [place] [address] USAMonocytes (Bld) [#/Vol]0.8 10*3/uLNormal0.0-0.8The [facility] Physician GroupComment on above:Performed By: #### CMP, CBC #### [place] [address] USAMonocytes/100 WBC (Bld)8.9 %Normal.The [facility] Physician GroupComment on above:Performed By: #### CMP, CBC #### [place] [address] USANeutrophils (Bld) [#/Vol]7.2 10*3/uLNormal1.8-7.7The [facility] Physician GroupComment on above:Performed By: #### CMP, CBC #### [place] [address] USANeutrophils/100 WBC (Bld)82.8 %Normal.The [facility] Physician GroupComment on above:Performed By: #### CMP, CBC #### [place] [address] USANRBC%0.1 /100{WBC}Normal0-0.5The [facility] Physician Group Comment on above:Performed By: #### CMP, CBC #### [place] [address] USAPlatelet mean volume (Bld) [Entitic vol]7.9 fLNormal 6.6-10.1The [facility] Physician GroupComment on above:Performed By: #### CMP, CBC #### [place] [address] USAPlatelets (Bld) [#/Vol]245 10*3/uAAhawzw482-616Dbw [facility] Physician GroupComment on above:Performed By: #### CMP, CBC #### [place] [address] USARBC (Bld) [#/Vol]4.00 10*6/uLNormal3.90-5.60The [facility] Physician GroupComment on above:Performed By: #### CMP, CBC #### [facility] [address] [place] [address] USAWBC (Bld) [#/Vol]8.7 10*3/uLNormal4.1-10.5The [facility] Physician GroupComment on above:Performed By: #### CMP, CBC #### [place] [address] USAComprehensive Metabolic Panelon 27-33-3668Yvjrhqt [Mass/Vol]3.7 g/dLNormal3.5-5.7The [facility] Physician GroupComment on above: Performed By: #### CMP, CBC #### [place] [address] USAAlbumin/Globulin [Mass ratio]1.2 {ratio}NormalThe [facility] Physician GroupComment on above:Performed By: #### CMP, CBC #### [place] [address] USAALP [Catalytic activity/Vol]69 U/UJviqih97-369Ijf [facility] Physician GroupComment on above:Performed By: #### CMP, CBC #### [place] [address] USAALT [Catalytic activity/Vol]18 U/LNormal7-52The [facility] Physician GroupComment on above:Performed By: #### CMP, CBC #### [place] [address] USAAnion gap [Moles/Vol]10.4 mmol/LNormal6.0-15.0The [facility] Physician GroupComment on above:Performed By: #### CMP, CBC #### [facility] [address] [place] [address] USAAST [Catalytic activity/Vol]18 U/LEzlyui07-95Cvj [facility] Physician GroupComment on above:Performed By: #### CMP, CBC #### [place] [address] USABilirubin [Mass/Vol]0.4 mg/dLNormal0.3-1.0The [facility] Physician GroupComment on above:Performed By: #### CMP, CBC #### [place] [address] USACalcium [Mass/Vol]9.4 mg/dLNormal8.6-10.3The [facility] Physician GroupComment on above:Performed By: #### CMP, CBC #### [place] [address] USAChloride [Moles/Vol]102 mmol/BLbmlzl65-595Qsg [facility] Physician GroupComment on above:Performed By: #### CMP, CBC #### [place] [address] USACO2 [Moles/Vol]26.5 mmol/EUjifnh73.0-31.0The [facility] Physician GroupComment on above:Performed By: #### CMP, CBC #### [place] [address] USACreatinine [Mass/Vol]0.91 mg/dLNormal0.70-1.30The [facility] Physician GroupComment on above:Performed By: #### CMP, CBC #### [place] [address] USACreatinine Clr Calc Ixzslbic49.53NormalThe [facility] Physician GroupComment on above:Result Comment: PERFORMED BY: [place] [address] PATHOLOGIST SUPERVISOR ENGINE REPAIR HEBER SHANNON M.D.Performed By: #### CMP, CBC #### [place] [address] USAGFR/1.73 sq M.predicted MDRD (S/P/Bld) [Vol rate/Area] mL/min/{1.73_m2}NormalThe [facility] Physician GroupComment on above:Performed By: #### CMP, CBC #### [place] [address] USAGlobulin (S) [Mass/Vol]3.0 g/dLNormalThe [facility] Physician GroupComment on above:Performed By: #### CMP, CBC #### [place] [address] USAGlucose [Mass/Vol]163 mg/wDBgod37-093Nan [facility] Physician GroupComment on above:Result Comment: Random Glucose Reference Range is dependent on time and content of last meal. Glucose of more than 200 mg/dL in a nonstressed, ambulatory subject supports the diagnosis of Diabetes Mellitus. ADA recommended reference rangePerformed By: #### CMP, CBC #### [place] [address] USAPotassium [Moles/Vol]3.9 mmol/LNormal3.5-5.1The [facility] Physician GroupComment on above:Performed By: #### CMP, CBC #### [place] [address] USAProtein [Mass/Vol]6.7 g/dLNormal6.4-8.9The [facility] Physician GroupComment on above:Performed By: #### CMP, CBC #### [place] [address] USASodium [Moles/Vol]135 mmol/WInc135-839Afn [facility] Physician GroupComment on above:Performed By: #### CMP, CBC #### [place] [address] USAUrea nitrogen [Mass/Vol]31 mg/dLHigh7-25The [facility] Physician GroupComment on above:Performed By: #### CMP, CBC #### [place] [address] USAComplete Blood Count Auto Diffon 44-62-7973Ydgeotkbm (Bld) [#/Vol]0.1 10*3/uLNormal0.0-0.2The [facility] Physician GroupComment on above: Result Comment: PERFORMED BY: [place] [address] PATHOLOGIST SUPERVISOR ENGINE REPAIR HEBER SHANNON M.D.Performed By: #### UA #### [place] [address] USABasophils/100 WBC (Bld)1.0 %Normal.The [facility] Physician GroupComment on above:Performed By: #### UA #### [place] [address] USAEosinophils (Bld) [#/Vol]0.0 10*3/uLNormal0.0-0.45The [facility] Physician GroupComment on above:Performed By: #### UA #### [place] [address] USAEosinophils/100 WBC (Bld)0.6 %Normal.The [facility] Physician GroupComment on above:Performed By: #### UA #### [place] [address] USAErythrocyte distribution width (RBC) [Ratio]14.0 %Normal 12.0-14.8The [facility] Physician GroupComment on above:Performed By: #### UA #### [place] [address] USAHematocrit (Bld) [Volume fraction]35.5 %Low38.8-50.0The [facility] Physician GroupComment on above:Performed By: #### UA #### [place] [address] USAHemoglobin (Bld) [Mass/Vol]12.1 g/dLLow13.0-17.0The [facility] Physician GroupComment on above:Performed By: #### UA #### [place] [address] USALymphocytes (Bld) [#/Vol]0.6 10*3/uLLow1.00-4.8The [facility] Physician GroupComment on above:Performed By: #### UA #### [place] [id number] USALymphocytes/100 WBC (Bld)10.3 %Normal.The [facility] Physician GroupComment on above:Performed By: #### UA #### [facility] [address] [place] [address] USAH (RBC) [Entitic mass]31.4 vmQtbkbt98.5-35.2The [facility] Physician GroupComment on above:Performed By: #### UA #### [facility] [address] [place] [address] USAMCV (RBC) [Entitic vol]92.2 xVBgzufc91.5-101The [facility] Physician GroupComment on above:Performed By: #### UA #### [facility] [address] [place] [address] USAMean Corpuscular HGB Conc34.0 g/vFLunuxb05.5-35.6The [facility] Physician GroupComment on above:Performed By: #### UA #### [facility] [address] [place] [address] USAMonocytes (Bld) [#/Vol]0.9 10*3/uLHigh0.0-0.8The [facility] Physician GroupComment on above:Performed By: #### UA #### [facility] [address] [place] [address] USAMonocytes/100 WBC (Bld)14.8 %Normal.The [facility] Physician GroupComment on above:Performed By: #### UA #### [place] [address] USANeutrophils (Bld) [#/Vol]4.5 10*3/uLNormal1.8-7.7The [facility] Physician GroupComment on above:Performed By: #### UA #### [place] [address] USANeutrophils/100 WBC (Bld)73.3 %Normal.The [facility] Physician GroupComment on above:Performed By: #### UA #### [facility] [address] [place] [address] USANRBC%0.1 /100{WBC}Normal0-0.5The [facility] Physician Group Comment on above:Performed By: #### UA #### [place] [address] USAPlatelet mean volume (Bld) [Entitic vol]7.4 fLNormal 6.6-10.1The [facility] Physician GroupComment on above:Performed By: #### UA #### [place] [address] USAPlatelets (Bld) [#/Vol]215 10*3/nURffsnl507-066Kbx [facility] Physician GroupComment on above:Performed By: #### UA #### [place] [address] USARBC (Bld) [#/Vol]3.85 10*6/uLLow3.90-5.60The [facility] Physician GroupComment on above:Performed By: #### UA #### [place] [address] USAWBC (Bld) [#/Vol]6.2 10*3/uLNormal4.1-10.5The [facility] Physician GroupComment on above:Performed By: #### UA #### [place] [address] USAComprehensive Metabolic Panelon 94-69-3159Reixgpx [Mass/Vol]3.6 g/dLNormal3.5-5.7The [facility] Physician GroupComment on above: Performed By: #### UA #### [place] [address] USAAlbumin/Globulin [Mass ratio]1.3 {ratio}NormalThe [facility] Physician GroupComment on above:Performed By: #### UA #### [place] [address] USAALP [Catalytic activity/Vol]75 U/NRgvurk38-904Bws [facility] Physician GroupComment on above:Performed By: #### UA #### [facility] [address] [place] [address] USAALT [Catalytic activity/Vol]12 U/LNormal7-52The [facility] Physician GroupComment on above:Performed By: #### UA #### [facility] [address] [place] [address] USAAnion gap [Moles/Vol]10.1 mmol/LNormal6.0-15.0The [facility] Physician GroupComment on above:Performed By: #### UA #### [facility] [address] [place] [address] USAAST [Catalytic activity/Vol]13 U/BLpkigo83-49Aue [facility] Physician GroupComment on above:Performed By: #### UA #### [facility] [address] [place] [address] USABilirubin [Mass/Vol]0.5 mg/dLNormal0.3-1.0The [facility] Physician GroupComment on above:Performed By: #### UA #### [facility] [address] [place] [address] USACalcium [Mass/Vol]8.5 mg/dLLow8.6-10.3The [facility] Physician GroupComment on above:Performed By: #### UA #### [facility] [address] [place] [address] USAChloride [Moles/Vol]103 mmol/JRqiinj19-658Ktl [facility] Physician GroupComment on above:Performed By: #### UA #### [facility] [address] [place] [address] USACO2 [Moles/Vol]27.1 mmol/NUswqfa04.0-31.0The [facility] Physician GroupComment on above:Performed By: #### UA #### [facility] [address] [place] [address] USACreatinine [Mass/Vol]1.03 mg/dLNormal0.70-1.30The [facility] Physician GroupComment on above:Performed By: #### UA #### [facility] [address] [place] [address] USACreatinine Clr Calc Bvcoufgr38.18NormalThe [facility]lands Physician GroupComment on above:Result Comment: PERFORMED BY: [place] [address] PATHOLOGIST SUPERVISOR ENGINE REPAIR HEBER SHANNON M.D.Performed By: #### UA #### [place] [address] USAGFR/1.73 sq M.predicted MDRD (S/P/Bld) [Vol rate/Area] mL/min/{1.73_m2}NormalThe [facility] Physician GroupComment on above:Performed By: #### UA #### [place] [address] USAGlobulin (S) [Mass/Vol]2.7 g/dLJohns Hopkins All Children's Hospital Physician GroupComment on above:Performed By: #### UA #### [place] [address] USAGlucose [Mass/Vol]120 mg/dGHoeu93-129Hvr [facility] Physician GroupComment on above:Result Comment: Random Glucose Reference Range is dependent on time and content of last meal. Glucose of more than 200 mg/dL in a nonstressed, ambulatory subject supports the diagnosis of Diabetes Mellitus. ADA recommended reference rangePerformed By: #### UA #### [place] [address] USAPotassium [Moles/Vol]4.2 mmol/LNormal3.5-5.1The [facility] Physician GroupComment on above:Performed By: #### UA #### [place] [address] USAProtein [Mass/Vol]6.3 g/dLLow6.4-8.9The [facility] Physician GroupComment on above:Performed By: #### UA #### [place] [address] USASodium [Moles/Vol]136 mmol/RAzyynw866-908Zwj [facility] Physician GroupComment on above:Performed By: #### UA #### [place] [address] USAUrea nitrogen [Mass/Vol]35 mg/dLHigh7-25The [facility] Physician GroupComment on above:Performed By: #### UA #### [facility] [address] StreetAlanine aminotransferase [Enzymatic activity/volume] in Serum or PlasmaOrdered By: Talib Faustin on 58-72-6283SYD [Catalytic activity/Vol]Alanine aminotransferase [Enzymatic activity/volume] in Serum or Plasma7-52[facility] HospitalAlbumin [Mass/volume] in Serum or Plasma by Bromocresol green (BCG) dye binding methoOrdered By: Talib Faustin on 93-24-3074Lagqkdy BCG dye [Mass/Vol]Albumin [Mass/volume] in Serum or Plasma by Bromocresol green (BCG) dye binding metho3.5-5.7FFirelands Regional Medical Center South CampusAlkaline phosphatase [Enzymatic activity/volume] in Serum or PlasmaOrdered By: Talib Faustin on 37-94-1588NFJ [Catalytic activity/Vol]Alkaline phosphatase [Enzymatic activity/volume] in Serum or Fdbunb53-072VccwsyxtfCommunity Memorial HospitalAspartate aminotransferase [Enzymatic activity/volume] in Serum or Plasma Ordered By: Talib Faustin on 65-80-8393MMU [Catalytic activity/Vol]Aspartate aminotransferase [Enzymatic activity/volume] in Serum or Yseijr61-16ObdvpskwoCommunity Memorial HospitalBasophils Auto (Bld) [#/Vol]Ordered By: Talib Faustin on 53-85-4080Ehknlqbuv (Bld) [#/Vol]Automated basophil count0.0-0.2FFirelands Regional Medical Center South CampusBasophils/100 WBC Auto (Bld)Ordered By: Talib Faustin on 18-65-8290Kzjsyvlbo/100 WBC (Bld)Automated basophil %.[facility] Memorial HospitalBilirubin.total [Mass/volume] in Serum or PlasmaOrdered By: Talib Faustin on 66-97-6986Raacpwpiq [Mass/Vol]Bilirubin.total [Mass/volume] in Serum or Plasma0.3-1.0[facility] HospitalCalcium [Mass/volume] in Serum or PlasmaOrdered By: Talib Clementswi on 22-74-9994Pruulyc [Mass/Vol]Calcium [Mass/volume] in Serum or Plasma8.6-10.3FFirelands Regional Medical Center South CampusCarbon dioxide, total [Moles/volume] in Serum or PlasmaOrdered By: [facility] - HazeltonDelvin on 55-73-5611SL6 [Moles/Vol]Carbon dioxide, total [Moles/volume] in Serum or Plasma 21.0-31.0[facility] Memorial HospitalChloride [Moles/volume] in Serum or PlasmaOrdered By: [facility] Hospitalethan on 89-34-4695Gayylokr [Moles/Vol]Chloride [Moles/volume] in Serum or Cqompx01-723HjscopjwlCommunity Memorial HospitalComplete Blood Count Auto Diffon 19-45-0384Srbgnxaiy (Bld) [#/Vol]0.1 10*3/uLNormal 0.0-0.2The [facility] Physician GroupComment on above:Result Comment: PERFORMED BY: [place] [address] PATHOLOGIST SUPERVISOR ENGINE REPAIR HEBER SHANNON M.D.Performed By: #### CMP, CBC #### [facility] [address] [place] [address] USABasophils/100 WBC (Bld)1.0 %Normal.The [facility] Physician GroupComment on above:Performed By: #### CMP, CBC #### [facility] [address] [place] [address] USAEosinophils (Bld) [#/Vol]0.1 10*3/uLNormal0.0-0.45The [facility] Physician GroupComment on above:Performed By: #### CMP, CBC #### [facility] [address] [place] [address] USAEosinophils/100 WBC (Bld)1.4 %Normal.The [facility] Physician GroupComment on above:Performed By: #### CMP, CBC #### [facility] [address] [place] [address] USAErythrocyte distribution width (RBC) [Ratio]13.6 %Normal 12.0-14.8The [facility] Physician GroupComment on above:Performed By: #### CMP, CBC #### [place] [address] USAHematocrit (Bld) [Volume fraction]35.4 %Low38.8-50.0The [facility] Physician GroupComment on above:Performed By: #### CMP, CBC #### [place] [address] USAHemoglobin (Bld) [Mass/Vol]12.0 g/dLLow13.0-17.0The [facility] Physician GroupComment on above:Performed By: #### CMP, CBC #### [place] [address] USALymphocytes (Bld) [#/Vol]0.9 10*3/uLLow1.00-4.8The [facility] Physician GroupComment on above:Performed By: #### CMP, CBC #### [place] [address] USALymphocytes/100 WBC (Bld)13.0 %Normal.The [facility] Physician GroupComment on above:Performed By: #### CMP, CBC #### [place] [address] USAMCH (RBC) [Entitic mass]31.1 bfQajqbu23.5-35.2The [facility] Physician GroupComment on above:Performed By: #### CMP, CBC #### [place] [address] USAMCV (RBC) [Entitic vol]91.5 kJCiseig22.5-101The [facility] Physician GroupComment on above:Performed By: #### CMP, CBC #### [place] [address] USAMean Corpuscular HGB Conc34.0 g/iETntdfn84.5-35.6The [facility] Physician GroupComment on above:Performed By: #### CMP, CBC #### [place] [address] USAMonocytes (Bld) [#/Vol]0.7 10*3/uLNormal0.0-0.8The [facility] Physician GroupComment on above:Performed By: #### CMP, CBC #### [facility] [address] [place] [address] USAMonocytes/100 WBC (Bld)9.8 %Normal.The [facility] Physician GroupComment on above:Performed By: #### CMP, CBC #### [facility] [address] [place] [address] USANeutrophils (Bld) [#/Vol]5.1 10*3/uLNormal1.8-7.7The [facility] Physician GroupComment on above:Performed By: #### CMP, CBC #### [facility] [address] [place] [address] USANeutrophils/100 WBC (Bld)74.8 %Normal.The [facility] Physician GroupComment on above:Performed By: #### CMP, CBC #### [facility] [address] [place] [address] USANRBC%0.1 /100{WBC}Normal0-0.5The [facility] Group Comment on above:Performed By: #### CMP, CBC #### [facility] [address] [place] [address] USAPlatelet mean volume (Bld) [Entitic vol]7.4 fLNormal 6.6-10.1The [facility] Physician GroupComment on above:Performed By: #### CMP, CBC #### [facility] [address] [place] [address] USAPlatelets (Bld) [#/Vol]217 10*3/vAUooqqx747-113Hfz [facility] Physician GroupComment on above:Performed By: #### CMP, CBC #### [facility] [address] [place] [address] USARBC (Bld) [#/Vol]3.87 10*6/uLLow3.90-5.60The [facility] Physician GroupComment on above:Performed By: #### CMP, CBC #### [facility] [address] [place] [address] USAWBC (Bld) [#/Vol]6.9 10*3/uLNormal4.1-10.5The [facility] Physician GroupComment on above:Performed By: #### CMP, CBC #### [facility] [address] [place] [address] USAComprehensive Metabolic Panelon 05-93-2131Vsuywpy [Mass/Vol]3.7 g/dLNormal3.5-5.7The [facility] Physician GroupComment on above: Performed By: #### CMP, CBC #### [facility] [address] [place] [address] USAAlbumin/Globulin [Mass ratio]1.3 {ratio}NormalThe [facility] Physician GroupComment on above:Performed By: #### CMP, CBC #### [place] [address] USAALP [Catalytic activity/Vol]80 U/RVrltea42-320Uvh [facility] Physician GroupComment on above:Performed By: #### CMP, CBC #### [facility] [address] [place] [address] USAALT [Catalytic activity/Vol]13 U/LNormal7-52The [facility] Physician GroupComment on above:Performed By: #### CMP, CBC #### [facility] [address] [place] [address] USAAnion gap [Moles/Vol]9.4 mmol/LNormal6.0-15.0The [facility] Physician GroupComment on above:Performed By: #### CMP, CBC #### [place] [address] USAAST [Catalytic activity/Vol]14 U/WCbbewr04-09Zrd [facility] Physician GroupComment on above:Performed By: #### CMP, CBC #### [facility] [address] [place] [address] USABilirubin [Mass/Vol]0.5 mg/dLNormal0.3-1.0The [facility] Physician GroupComment on above:Performed By: #### CMP, CBC #### [facility] [address] [place] [address] USACalcium [Mass/Vol]8.9 mg/dLNormal8.6-10.3The [facility] Physician GroupComment on above:Performed By: #### CMP, CBC #### [place] [address] USAChloride [Moles/Vol]104 mmol/UTsrfnp85-205Oqp [facility] Physician GroupComment on above:Performed By: #### CMP, CBC #### [place] [address] USACO2 [Moles/Vol]26.8 mmol/NSgboes68.0-31.0The [facility] Physician GroupComment on above:Performed By: #### CMP, CBC #### [place] [address] USACreatinine [Mass/Vol]0.87 mg/dLNormal0.70-1.30The [facility] Physician GroupComment on above:Performed By: #### CMP, CBC #### [place] [address] USACreatinine Clr Calc Shnghgte69.04NoWatauga Medical Center Physician GroupComment on above:Result Comment: PERFORMED BY: [place] [address] PATHOLOGIST SUPERVISOR ENGINE REPAIR HEBER SHANNON M.D.Performed By: #### CMP, CBC #### [place] [address] USAGFR/1.73 sq M.predicted MDRD (S/P/Bld) [Vol rate/Area] mL/min/{1.73_m2}NormalThe [facility] Physician GroupComment on above:Performed By: #### CMP, CBC #### [place] [address] USAGlobulin (S) [Mass/Vol]2.9 g/dLNoWatauga Medical Center Physician GroupComment on above:Performed By: #### CMP, CBC #### [place] [address] USAGlucose [Mass/Vol]107 mg/qZLbin26-777Kdd [facility] Physician GroupComment on above:Result Comment: Random Glucose Reference Range is dependent on time and content of last meal. Glucose of more than 200 mg/dL in a nonstressed, ambulatory subject supports the diagnosis of Diabetes Mellitus. ADA recommended reference rangePerformed By: #### CMP, CBC #### [facility] [address] [place] [address] USAPotassium [Moles/Vol]4.2 mmol/LNormal3.5-5.1The [facility] Physician GroupComment on above:Performed By: #### CMP, CBC #### [facility] [address] [place] [address] USAProtein [Mass/Vol]6.6 g/dLNormal6.4-8.9The [facility] Physician GroupComment on above:Performed By: #### CMP, CBC #### [facility] [address] [place] [address] USASodium [Moles/Vol]136 mmol/VLejkgo838-002Xrn [facility] Physician GroupComment on above:Performed By: #### CMP, CBC #### [facility] [address] [place] [address] USAUrea nitrogen [Mass/Vol]30 mg/dLHigh7-25The [facility] Physician GroupComment on above:Performed By: #### CMP, CBC #### [facility] [address] [place] [address] USACreatinine [Mass/volume] in Serum or PlasmaOrdered By: Talib Faustin on 45-70-1199Sxavkhqnmx [Mass/Vol]Creatinine [Mass/volume] in Serum or Plasma0.70-1.30[facility] HospitalEosinophils Auto (Bld) [#/Vol]Ordered By: Talib Faustin on 25-87-9826Erabdtthxvy (Bld) [#/Vol] Automated eosinophil count0.0-0.45[facility] Eosinophils/100 WBC Auto (Bld)Ordered By: Talib Faustin on 07-26-2024 Eosinophils/100 WBC (Bld)Automated eosinophil %.[facility] HospitalErythrocyte distribution width Auto (RBC) [Ratio]Ordered By: Talib Hargrove on 97-55-1470Fnkrwslodyz distribution width (RBC) [Ratio]Erythrocyte distribution width [Ratio] by Automated count12.0-14.8[facility] HospitalGlobulin Calc (S) [Mass/Vol]Ordered By: rick Faustin on 07-26-2024 Globulin (S) [Mass/Vol]Serum globulin measurement by calculation (mass/volume) [facility] HospitalGlucose [Mass/volume] in Serum or PlasmaOrdered By: rick Faustin on 33-44-5794Icknwgd [Mass/Vol]Glucose [Mass/volume] in Serum or UerdamGrmo18-764MljkdlraeCommunity Memorial HospitalComment on above:ADA recommended reference rangeRandom Glucose Reference Range is dependent on time and content of last meal. Glucose of more than 200 mg/dL in a nonstressed, ambulatory subject supports the diagnosisof Diabetes Mellitus.Hematocrit Auto (Bld) [Volume fraction]Ordered By: rick Faustin on 48-20-4821Bekwlamsbf (Bld) [Volume fraction]Hematocrit [Volume Fraction] of Blood by Automated countLow 38.8-50.0[facility] HospitalHemoglobin [Mass/volume] in Blood Ordered By: Talib Faustin on 24-50-1360Lphdzpajcz (Bld) [Mass/Vol]Hemoglobin [Mass/volume] in LzthbPxw83.0-17.0[facility] HospitalLeukocytes [#/volume] corrected for nucleated erythrocytes in Blood by Automated coun Ordered By: Talib Faustin on 26-14-5590BVA corrected for nucl RBC Auto (Bld) [#/Vol]Leukocytes [#/volume] corrected for nucleated erythrocytes in Blood by Automated coun4.1-10.5FFirelands Regional Medical Center South CampusLymphocytes Auto (Bld) [#/Vol]Ordered By: rick Faustin on 03-54-4695Zlcrxohooyc (Bld) [#/Vol] Lymphocytes [#/volume] in Blood by Automated countLow1.00-4.8[facility] HospitalLymphocytes/100 WBC Auto (Bld)Ordered By: Talib Faustin on 87-21-9177Jdojmzatvat/100 WBC (Bld)Lymphocytes/100 leukocytes in Blood by Automated count.[facility] HospitalMCH Auto (RBC) [Entitic mass] Ordered By: Talib Faustin on 82-07-0386TQU (RBC) [Entitic mass]MCH [Entitic mass] by Automated count27.5-35.2FFirelands Regional Medical Center South CampusMCHC Auto (RBC) [Mass/Vol]Ordered By: Talib Faustin on 14-08-1092DPIG (RBC) [Mass/Vol] MCHC [Mass/volume] by Automated count32.5-35.6FFirelands [facility] Campus MCV Auto (RBC) [Entitic vol]Ordered By: Talib Faustin on 77-77-0151YEH (RBC) [Entitic vol]MCV [Entitic volume] by Automated count83.5-101[facility] HospitalMonocytes Auto (Bld) [#/Vol]Ordered By: Talib Faustin on 53-05-3446Vmstpvdbv (Bld) [#/Vol]Automated blood monocyte count0.0-0.8[facility] HospitalMonocytes/100 WBC Auto (Bld)Ordered By: Talib Faustin on 79-44-2317Ddqlggvkc/100 WBC (Bld)Automated monocyte %.[facility] HospitalNeutrophils Auto (Bld) [#/Vol]Ordered By: Talib Faustin on 26-68-0026Rqamglvyhek (Bld) [#/Vol]Neutrophils [#/volume] in Blood by Automated count1.8-7.7FFirelands Regional Medical Center South CampusNeutrophils/100 WBC Auto (Bld) Ordered By: rick Faustin on 21-46-5929Rwyjzhzhkaj/100 WBC (Bld)Automated neutrophil %.[facility] HospitalNo Panel InformationOrdered By: Talib Faustin on 30-40-1175Vvcobyzah GFR (CKD-EPI)> 60.0 mL/MinCommunity Memorial HospitalPharmacy Creatinine Clearance (Chem57.04[facility] HospitalNucleated erythrocytes [Presence] in Blood by Automated countOrdered By: Talib Faustin on 87-23-7597Somhhxrrj RBC Auto Ql (Bld) Nucleated erythrocytes [Presence] in Blood by Automated count0-0.5FFirelands Regional Medical Center South CampusPlatelet mean volume Auto (Bld) [Entitic vol]Ordered By: Talib Faustin on 39-52-3468Mwpfpojm mean volume (Bld) [Entitic vol]Platelet mean volume [Entitic volume] in Blood by Automated count6.6-10.1FFirelands Regional Medical Center South CampusPlatelets Auto (Bld) [#/Vol]Ordered By: Talib Faustin on 16-38-6836Lhriuzqhs (Bld) [#/Vol]Platelets [#/volume] in Blood by Automated sibjr015-526IqsgzovjsCommunity Memorial HospitalPotassium [Moles/volume] in Serum or PlasmaOrdered By: Talib Faustin on 54-01-5749Gssbuzvcx [Moles/Vol]Potassium [Moles/volume] in Serum or Plasma3.5-5.1FFirelands Regional Medical Center South CampusProtein [Mass/volume] in Serum or PlasmaOrdered By: Talib Faustin on 24-30-6451Ckhgaaq [Mass/Vol]Protein [Mass/volume] in Serum or Plasma6.4-8.9[facility] HospitalRBC Auto (Bld) [#/Vol]Ordered By: Talib Faustin on 87-16-7337VLJ (Bld) [#/Vol]Erythrocytes [#/volume] in Blood by Automated countLow3.90-5.60 [facility] - Dublinerum or plasma albumin/globulin mass ratio Ordered By: Talib Faustin on 96-01-7350Aqrtwkk/Globulin [Mass ratio]Serum or plasma albumin/globulin mass ratioSelect Medical OhioHealth Rehabilitation Hospital - Dublinerum or plasma anion gap determinationOrdered By: Talib Faustin on 96-33-7090Xotij gap [Moles/Vol]Serum or plasma anion gap determination6.0-15.0[facility] - Dublinodium [Moles/volume] in Serum or PlasmaOrdered By: Talib Faustin on 01-85-9948Pxjoxt [Moles/Vol]Sodium [Moles/volume] in Serum or Ujdzps029-602 [facility] HospitalUrea nitrogen [Mass/volume] in Serum or Plasma Ordered By: Talib Faustin on 23-67-9761Edji nitrogen [Mass/Vol]Urea nitrogen [Mass/volume] in Serum or PlasmaHigh7-25[facility] HospitalWBC Auto (Bld) [#/Vol]Ordered By: Talib Faustin on 15-62-8175JOD (Bld) [#/Vol] Leukocytes [#/volume] in Blood by Automated count4.1-10.5FFirelands Regional Medical Center South CampusComplete Blood Count Auto Diffon 71-30-8804Wkurcpsee (Bld) [#/Vol] 0.0 10*3/uLNormal0.0-0.2The [facility] Physician GroupComment on above:Result Comment: PERFORMED BY: [place] [address] PATHOLOGIST SUPERVISOR ENGINE REPAIR HEBER SHANNON M.D.Performed By: #### MG, CMP, CBC #### [place] [address] USAPerformed By: #### ESR #### [place] [address] USABasophils/100 WBC (Bld)0.5 %Normal.The [facility] Physician GroupComment on above:Performed By: #### MG, CMP, CBC #### [facility] [address] [place] [address] USAPerformed By: #### ESR #### [place] [address] USAEosinophils (Bld) [#/Vol]0.1 10*3/uLNormal0.0-0.45The [facility] Physician GroupComment on above:Performed By: #### MG, CMP, CBC #### [place] [address] USAPerformed By: #### ESR #### [place] [address] USAEosinophils/100 WBC (Bld)1.4 %Normal.The [facility] Physician GroupComment on above:Performed By: #### MG, CMP, CBC #### [place] [address] USAPerformed By: #### ESR #### [place] [address] USAErythrocyte distribution width (RBC) [Ratio]13.4 %Normal 12.0-14.8The [facility] Physician GroupComment on above:Performed By: #### MG, CMP, CBC #### [place] [address] USAPerformed By: #### ESR #### [place] [address] USAHematocrit (Bld) [Volume fraction]35.7 %Low38.8-50.0The [facility] Physician GroupComment on above:Performed By: #### MG, CMP, CBC #### [place] [address] USAPerformed By: #### ESR #### [place] [address] USAHemoglobin (Bld) [Mass/Vol]12.0 g/dLLow13.0-17.0The [facility] Physician GroupComment on above:Performed By: #### MG, CMP, CBC #### [place] [address] USAPerformed By: #### ESR #### [place] [address] USALymphocytes (Bld) [#/Vol]1.3 10*3/uLNormal1.00-4.8The [facility] Physician GroupComment on above:Performed By: #### MG, CMP, CBC #### [place] [address] USAPerformed By: #### ESR #### [place] [address] USALymphocytes/100 WBC (Bld)11.6 %Normal.The [facility] Physician GroupComment on above:Performed By: #### MG, CMP, CBC #### [place] [address] USAPerformed By: #### ESR #### [place] [address] USAMCH (RBC) [Entitic mass]30.7 hlYmuajc94.5-35.2The [facility] Physician GroupComment on above:Performed By: #### MG, CMP, CBC #### [place] [address] USAPerformed By: #### ESR #### [place] [address] USAV (RBC) [Entitic vol]91.3 mRVfoakr51.5-101The [facility] Physician GroupComment on above:Performed By: #### MG, CMP, CBC #### [place] [address] USAPerformed By: #### ESR #### [place] [address] USAMean Corpuscular HGB Conc33.7 g/zJNphpcg57.5-35.6The [facility] Physician GroupComment on above:Performed By: #### MG, CMP, CBC #### [place] [address] USAPerformed By: #### ESR #### [place] [address] USAMonocytes (Bld) [#/Vol]0.8 10*3/uLNormal0.0-0.8The [facility] Physician GroupComment on above:Performed By: #### MG, CMP, CBC #### [place] [address] USAPerformed By: #### ESR #### [place] [address] USAMonocytes/100 WBC (Bld)7.4 %Normal.The [facility] Physician GroupComment on above:Performed By: #### MG, CMP, CBC #### [facility] [address] [place] [address] USAPerformed By: #### ESR #### [place] [address] USANeutrophils (Bld) [#/Vol]8.7 10*3/uLHigh1.8-7.7The [facility] Physician GroupComment on above:Performed By: #### MG, CMP, CBC #### [place] [address] USAPerformed By: #### ESR #### [place] [address] USANeutrophils/100 WBC (Bld)79.1 %Normal.The [facility] Physician GroupComment on above:Performed By: #### MG, CMP, CBC #### [place] [address] USAPerformed By: #### ESR #### [place] [address] USANRBC%0.1 /100{WBC}Normal0-0.5The [facility]ician Group Comment on above:Performed By: #### MG, CMP, CBC #### [place] [address] USAPerformed By: #### ESR #### [place] [address] USAPlatelet mean volume (Bld) [Entitic vol]7.9 fLNormal 6.6-10.1The [facility] Physician GroupComment on above:Performed By: #### MG, CMP, CBC #### [place] [address] USAPerformed By: #### ESR #### [place] [address] USAPlatelets (Bld) [#/Vol]179 10*3/xYUttcht625-118Ruq [facility] Physician GroupComment on above:Performed By: #### MG, CMP, CBC #### [place] [address] USAPerformed By: #### ESR #### [place] [address] USARBC (Bld) [#/Vol]3.91 10*6/uLNormal3.90-5.60The [facility] Physician GroupComment on above:Performed By: #### MG, CMP, CBC #### [place] [address] USAPerformed By: #### ESR #### [place] [address] USAWBC (Bld) [#/Vol]11.0 10*3/uLHigh4.1-10.5The [facility] Physician GroupComment on above:Performed By: #### MG, CMP, CBC #### [place] [address] USAPerformed By: #### ESR #### [place] [address] USAComprehensive Metabolic Panelon 09-79-3606Jkiiugp [Mass/Vol]3.8 g/dLNormal3.5-5.7The [facility] Physician GroupComment on above: Performed By: #### MG, CMP, CBC #### [place] [address] USAPerformed By: #### ESR #### [place] [address] USAAlbumin/Globulin [Mass ratio]1.5 {ratio}NormalThe [facility] Physician GroupComment on above:Performed By: #### MG, CMP, CBC #### [place] [address] USAPerformed By: #### ESR #### [place] [address] USAALP [Catalytic activity/Vol]84 U/QAskagm69-061Skf [facility] Physician GroupComment on above:Performed By: #### MG, CMP, CBC #### [place] [address] USAPerformed By: #### ESR #### [facility] [address] [place] [address] USAALT [Catalytic activity/Vol]12 U/LNormal7-52The [facility] Physician GroupComment on above:Performed By: #### MG, CMP, CBC #### [facility] [address] [place] [address] USAPerformed By: #### ESR #### [facility] [address] [place] [address] USAAnion gap [Moles/Vol]10.1 mmol/LNormal6.0-15.0The [facility] Physician GroupComment on above:Performed By: #### MG, CMP, CBC #### [facility] [address] [place] [address] USAPerformed By: #### ESR #### [place] [address] USAAST [Catalytic activity/Vol]11 U/OSor83-41Fxu [facility] Physician GroupComment on above:Performed By: #### MG, CMP, CBC #### [facility] [address] [place] [address] USAPerformed By: #### ESR #### [facility] [address] [place] [address] USABilirubin [Mass/Vol]0.6 mg/dLNormal0.3-1.0The [facility] Physician GroupComment on above:Performed By: #### MG, CMP, CBC #### [facility] [address] [place] [address] USAPerformed By: #### ESR #### [place] [address] USACalcium [Mass/Vol]9.2 mg/dLNormal8.6-10.3The [facility] Physician GroupComment on above:Performed By: #### MG, CMP, CBC #### [facility] [address] [place] [address] USAPerformed By: #### ESR #### [facility] [address] [place] [address] USAChloride [Moles/Vol]107 mmol/TVagnfv51-664Nkb [facility] Physician GroupComment on above:Performed By: #### MG, CMP, CBC #### [facility] [address] [place] [address] USAPerformed By: #### ESR #### [place] [address] USACO2 [Moles/Vol]25.1 mmol/YBahrvf93.0-31.0The [facility] Physician GroupComment on above:Performed By: #### MG, CMP, CBC #### [facility] [address] [place] [address] USAPerformed By: #### ESR #### [facility] [address] [place] [address] USACreatinine [Mass/Vol]0.95 mg/dLNormal0.70-1.30The [facility] Physician GroupComment on above:Performed By: #### MG, CMP, CBC #### [facility] [address] [place] [address] USAPerformed By: #### ESR #### [place] [address] USACreatinine Clr Calc Fmduuygt44.56NoWatauga Medical Center Physician GroupComment on above:Performed By: #### MG, CMP, CBC #### [facility] [address] [place] [address] USAPerformed By: #### ESR #### [facility] [address] [place] [address] USAGFR/1.73 sq M.predicted MDRD (S/P/Bld) [Vol rate/Area] mL/min/{1.73_m2}NormalThe [facility] Physician GroupComment on above:Performed By: #### MG, CMP, CBC #### [facility] [address] [place] [address] USAPerformed By: #### ESR #### [place] [address] USAGlobulin (S) [Mass/Vol]2.6 g/dLNoWatauga Medical Center Physician GroupComment on above:Performed By: #### MG, CMP, CBC #### [place] [address] USAPerformed By: #### ESR #### [place] [address] USAGlucose [Mass/Vol]115 mg/gPAgad34-918Ofr [facility] Physician GroupComment on above:Result Comment: Random Glucose Reference Range is dependent on time and content of last meal. Glucose of more than 200 mg/dL in a nonstressed, ambulatory subject supports the diagnosis of Diabetes Mellitus. ADA recommended reference rangePerformed By: #### MG, CMP, CBC #### [place] [address] USAPerformed By: #### ESR #### [place] [address] USAPotassium [Moles/Vol]4.2 mmol/LNormal3.5-5.1The [facility] Physician GroupComment on above:Performed By: #### MG, CMP, CBC #### [place] [address] USAPerformed By: #### ESR #### [place] [address] USAProtein [Mass/Vol]6.4 g/dLNormal6.4-8.9The [facility] Physician GroupComment on above:Performed By: #### MG, CMP, CBC #### [place] [address] USAPerformed By: #### ESR #### [place] [address] USASodium [Moles/Vol]138 mmol/BKlhtwh040-461Nsl [facility] Physician GroupComment on above:Performed By: #### MG, CMP, CBC #### [place] [address] USAPerformed By: #### ESR #### [place] [address] USAUrea nitrogen [Mass/Vol]30 mg/dLHigh7-25The [facility] Physician GroupComment on above:Performed By: #### MG, CMP, CBC #### [facility] [address] [place] [address] USAPerformed By: #### ESR #### [place] [address] USAMagnesiumon 80-31-6150Qgyqkkdgp [Mass/Vol]1.8 mg/dLLow 1.9-2.7The [facility] Physician GroupComment on above:Result Comment: PERFORMED BY: [place] [address] PATHOLOGIST SUPERVISOR ENGINE REPAIR HEBER SHANNON M.D.Performed By: #### MG, CMP, CBC #### [facility] [address] [place] [address] USAPerformed By: #### ESR #### [place] [address] USAMagnesium [Mass/volume] in Serum or PlasmaOrdered By: Talib Faustin on 53-34-3523Nhudzxqwj [Mass/Vol]Magnesium [Mass/volume] in Serum or PlasmaLow1.9-2.7FFirelands Regional Medical Center South CampusOffice Visiton 07-19-2024 Follow-up [id number] Jeremie Bennett 1940 M Date Provider Department Center 07/19/2024 BOY SON CARD Nicolette Hos Family History Problem Relation Age of Onset Coronary artery disease Mother Kidney disease Mother Heart failure Mother Family Status - Relation Status Age at Mother Level of Service:[address] [place] POSTOP FOLLOW UP VISIT RELATED TO ORIGINAL Normal [place] [facility] HospitalGLUCOSE POCT GLUCOMETERSon 10-31-1197ZQPCORF4 Glu2: Cleaned MeterNOMS HealthcareGlucose [Mass/Vol]107 mg/dLNOMS Healthcare Comment on above:Random Glucose Reference Range is dependent on time and content of last meal. Glucose of more than 200 mg/dL in a nonstressed, ambulatory subject supports the diagnosis of Diabetes Mellitus. [facility] HealthcareGlucose Glucometer (BldC) [Mass/Vol]Ordered By: Matteo Melo on 12-46-7369Vdvblif [Mass/Vol]Capillary blood glucose measurement by glucometer (mass/volume)[facility] HospitalComment on above:Random Glucose Reference Range is dependent on time and content of last meal. Glucose of more than 200 mg/dL in a nonstressed, ambulatory subject supports the diagnosis of Diabetes Mellitus.Glucose Poct Glucometerson 00-53-1237Yujwmvs0Equ4: Cleaned MeterNoWatauga Medical Center Physician GroupComment on above:Result Comment: PERFORMED BY: [place] [address] PATHOLOGIST SUPERVISOR ENGINE REPAIR HEBER SHANNON M.D.Performed By: #### GLULS #### Point of Care testing ,Performed By: #### ESR #### [place] [address] USAGlucose [Mass/Vol]107 mg/dLNoWatauga Medical Center Physician GroupComment on above:Result Comment: Random Glucose Reference Range is dependent on time and content of last meal. Glucose of more than 200 mg/dL in a nonstressed, ambulatory subject supports the diagnosis of Diabetes Mellitus.Performed By: #### GLULS #### Point of Care testing ,Performed By: #### ESR #### [place] [address] USANo Panel InformationOrdered By: Matteo Melo on 71-20-0672Cpzilgz Glucose CommentGlu2: cleaned [facility] DaytonX-ray reportOrdered By: Mario Urias on 08-93-9984Xxldf [facility] [place] [address] [place] [address] XRay Report Signed Patient: Jeremie Bennett MR#: [id number] : 1940 Acct:[id number] Age/Sex: 83 / M ADM Date: 5 Loc: [place] Room: Type: [facility] Attending Dr: Matteo Melo MD Copies [...] Jr DO 07/17/241406 Signed By: 07/17/24 1407 [facility] HospitalXR chest 1V portableon 17-23-9367RT chest 1V [place] [address] XRay Report Signed Patient: Jeremie Bennett MR#: [id number] : 1940 Acct:[id number] Age/Sex: 83 / M ADM Date: 07/17/24 Loc: [place] Room: Type: [facility] Attending Dr: Matteo Melo MD Copies [...] Urias Jr, DO 07/17/241406 Signed By: 07/17/24 140MitchellJohn[facility] Physician GroupXR chest 1V [place] [id number] XRay Report Signed Patient: Jeremie Bennett MR#: [id number] : 1940 Acct:[id number] Age/Sex: 83 / M ADM Date: 07/17/24 Loc: [place] Room: Type: [facility] Attending Dr: Matteo Melo MD Copies [...] Urias Jr., D.OAidan07/17/2024 2:07 PM Dictation Location: [facility] Transcribed By: [facility] 07/17/24 140 Dictated By: Mario Urias Jr, DO 07/17/24 1407 Signed By: 07/17/24 1407[facility] Physician GroupAlanine aminotransferase [Enzymatic activity/volume] in Serum or PlasmaOrdered By: Talib Faustin on 10-01-9649RJB [Catalytic activity/Vol]Alanine aminotransferase [Enzymatic activity/volume] in Serum or Plasma7-52[facility] HospitalAlbumin [Mass/volume] in Serum or Plasma by Bromocresol green (BCG) dye binding metho Ordered By: Talib Faustin on 78-03-1934Qrktpfk BCG dye [Mass/Vol]Albumin [Mass/volume] in Serum or Plasma by Bromocresol green (BCG) dye binding metho 3.5-5.7FFirelands Regional Medical Center South CampusAlkaline phosphatase [Enzymatic activity/volume] in Serum or PlasmaOrdered By: Talib Faustin on 44-98-0122GZO [Catalytic activity/Vol]Alkaline phosphatase [Enzymatic activity/volume] in Serum or Ixmdpw28-712KwphozbwoCommunity Memorial HospitalAspartate aminotransferase [Enzymatic activity/volume] in Serum or PlasmaOrdered By: Talib Faustin on 04-19-6731MNU [Catalytic activity/Vol]Aspartate aminotransferase [Enzymatic activity/volume] in Serum or BacuoiYpt34-30KdvqlwzubCommunity Memorial Hospital Basophils Auto (Bld) [#/Vol]Ordered By: rick Faustin on 16-05-9554Zbldhlmsy (Bld) [#/Vol]Automated basophil count0.0-0.2FFirelands Regional Medical Center South Campus Basophils/100 WBC Auto (Bld)Ordered By: [facility] Ramin on 07-12-2024 Basophils/100 WBC (Bld)Automated basophil %.[facility] Bilirubin.total [Mass/volume] in Serum or PlasmaOrdered By: [facility] Ramin on 71-96-2795Aauzgrfbm [Mass/Vol]Bilirubin.total [Mass/volume] in Serum or Plasma 0.3-1.0[facility] Memorial HospitalCalcium [Mass/volume] in Serum or Plasma Ordered By: [facility] Ramin on 77-70-6503Lyxvght [Mass/Vol]Calcium [Mass/volume] in Serum or Plasma8.6-10.3FFirelands Regional Medical Center South CampusCarbon dioxide, total [Moles/volume] in Serum or PlasmaOrdered By: [facility] Ramin on 49-15-5907WP4 [Moles/Vol]Carbon dioxide, total [Moles/volume] in Serum or Dmigjf83.0-31.0 [facility] HospitalChloride [Moles/volume] in Serum or Plasma Ordered By: [facility] Ramin on 32-03-1165Jbkohkhf [Moles/Vol]Chloride [Moles/volume] in Serum or Tbbtke20-956IqvjqqceoCommunity Memorial HospitalComplete Blood Count Auto Diffon 08-28-4728Dvoeyhrxe (Bld) [#/Vol]0.0 10*3/uLNormal 0.0-0.2The [facility] Physician GroupComment on above:Result Comment: PERFORMED BY: [facility] [address] [place] [address] PATHOLOGIST SUPERVISOR ENGINE REPAIR HEBER SHANNON M.D.Performed By: #### CBC, CMP, MG #### [facility] [address] [place] [address] USAPerformed By: #### ESR #### [place] [address] USABasophils/100 WBC (Bld)0.3 %Normal.The [facility] Physician GroupComment on above:Performed By: #### CBC, CMP, MG #### [place] [address] USAPerformed By: #### ESR #### [place] [address] USAEosinophils (Bld) [#/Vol]0.2 10*3/uLNormal0.0-0.45The [facility] Physician GroupComment on above:Performed By: #### CBC, CMP, MG #### [place] [address] USAPerformed By: #### ESR #### [place] [address] USAEosinophils/100 WBC (Bld)1.7 %Normal.The [facility] Physician GroupComment on above:Performed By: #### CBC, CMP, MG #### [place] [address] USAPerformed By: #### ESR #### [place] [address] USAErythrocyte distribution width (RBC) [Ratio]13.7 %Normal 12.0-14.8The [facility] Physician GroupComment on above:Performed By: #### CBC, CMP, MG #### [place] [address] USAPerformed By: #### ESR #### [place] [address] USAHematocrit (Bld) [Volume fraction]38.0 %Low38.8-50.0The [facility] Physician GroupComment on above:Performed By: #### CBC, CMP, MG #### [place] [address] USAPerformed By: #### ESR #### [place] [address] USAHemoglobin (Bld) [Mass/Vol]12.6 g/dLLow13.0-17.0The [facility] Physician GroupComment on above:Performed By: #### CBC, CMP, MG #### [place] [address] USAPerformed By: #### ESR #### [place] [address] USALymphocytes (Bld) [#/Vol]2.0 10*3/uLNormal1.00-4.8The [facility] Physician GroupComment on above:Performed By: #### CBC, CMP, MG #### [place] [address] USAPerformed By: #### ESR #### [place] [address] USALymphocytes/100 WBC (Bld)19.2 %Normal.The [facility] Physician GroupComment on above:Performed By: #### CBC, CMP, MG #### [place] [address] USAPerformed By: #### ESR #### [place] [address] USAMCH (RBC) [Entitic mass]30.7 vdKiewgn82.5-35.2The [facility] Physician GroupComment on above:Performed By: #### CBC, CMP, MG #### [place] [address] USAPerformed By: #### ESR #### [place] [address] USAMCV (RBC) [Entitic vol]92.2 gIFyhrbz65.5-101The [facility] Physician GroupComment on above:Performed By: #### CBC, CMP, MG #### [place] [address] USAPerformed By: #### ESR #### [place] [address] USAMean Corpuscular HGB Conc33.3 g/zPQhasyt87.5-35.6The [facility] Physician GroupComment on above:Performed By: #### CBC, CMP, MG #### [facility] [address] [place] [address] USAPerformed By: #### ESR #### [place] [address] USAMonocytes (Bld) [#/Vol]0.8 10*3/uLNormal0.0-0.8The [facility] Physician GroupComment on above:Performed By: #### CBC, CMP, MG #### [facility] [address] [place] [address] USAPerformed By: #### ESR #### [place] [address] USAMonocytes/100 WBC (Bld)7.5 %Normal.The [facility] Physician GroupComment on above:Performed By: #### CBC, CMP, MG #### [facility] [address] [place] [address] USAPerformed By: #### ESR #### [place] [address] USANeutrophils (Bld) [#/Vol]7.3 10*3/uLNormal1.8-7.7The [facility] Physician GroupComment on above:Performed By: #### CBC, CMP, MG #### [place] [address] USAPerformed By: #### ESR #### [place] [address] USANeutrophils/100 WBC (Bld)71.3 %Normal.The [facility] Physician GroupComment on above:Performed By: #### CBC, CMP, MG #### [facility] [address] [place] [address] USAPerformed By: #### ESR #### [place] [address] USANRBC%0.1 /100{WBC}Normal0-0.5The [facility] Physician Group Comment on above:Performed By: #### CBC, CMP, MG #### [facility] [address] [place] [address] USAPerformed By: #### ESR #### [facility] [address] [place] [address] USAPlatelet mean volume (Bld) [Entitic vol]9.0 fLNormal 6.6-10.1The [facility] Physician GroupComment on above:Performed By: #### CBC, CMP, MG #### [facility] [address] [place] [address] USAPerformed By: #### ESR #### [place] [address] USAPlatelets (Bld) [#/Vol]197 10*3/lZNiuuuh530-494Koo [facility] Physician GroupComment on above:Performed By: #### CBC, CMP, MG #### [place] [address] USAPerformed By: #### ESR #### [place] [address] USARBC (Bld) [#/Vol]4.12 10*6/uLNormal3.90-5.60The [facility] Physician GroupComment on above:Performed By: #### CBC, CMP, MG #### [place] [address] USAPerformed By: #### ESR #### [place] [address] USAWBC (Bld) [#/Vol]10.2 10*3/uLNormal4.1-10.5The [facility] Physician GroupComment on above:Performed By: #### CBC, CMP, MG #### [facility] [address] [place] [address] USAPerformed By: #### ESR #### [place] [address] USAComprehensive Metabolic Panelon 94-07-6606Tztbbzz [Mass/Vol]3.9 g/dLNormal3.5-5.7The [facility] Physician GroupComment on above: Performed By: #### CBC, BMP #### [facility] [address] [place] [address] USAPerformed By: #### ESR #### [facility] [address] [place] [address] USAAlbumin/Globulin [Mass ratio]1.6 {ratio}NormalThe [facility] Physician GroupComment on above:Performed By: #### CBC, BMP #### [facility] [address] [place] [address] USAPerformed By: #### ESR #### [facility] [address] [place] [address] USAALP [Catalytic activity/Vol]86 U/CDttlas26-881Vsh [facility] Physician GroupComment on above:Performed By: #### CBC, BMP #### [facility] [address] [place] [address] USAPerformed By: #### ESR #### [facility] [address] [place] [address] USAALT [Catalytic activity/Vol]15 U/LNormal7-52The [facility] Physician GroupComment on above:Performed By: #### CBC, BMP #### [facility] [address] [place] [address] USAPerformed By: #### ESR #### [facility] [address] [place] [address] USAAnion gap [Moles/Vol]12.2 mmol/LNormal6.0-15.0The [facility] Physician GroupComment on above:Performed By: #### CBC, BMP #### [facility] [address] [place] [address] USAPerformed By: #### ESR #### [facility] [address] [place] [address] USAAST [Catalytic activity/Vol]11 U/FWgp81-24Qgn [facility] Physician GroupComment on above:Performed By: #### CBC, BMP #### [facility] [address] [place] [address] USAPerformed By: #### ESR #### [facility] [address] [place] [address] USABilirubin [Mass/Vol]0.7 mg/dLNormal0.3-1.0The [facility] Physician GroupComment on above:Performed By: #### CBC, BMP #### [facility] [address] [place] [address] USAPerformed By: #### ESR #### [facility] [address] [place] [address] USACalcium [Mass/Vol]9.0 mg/dLNormal8.6-10.3The [facility] Physician GroupComment on above:Performed By: #### CBC, BMP #### [facility] [address] [place] [address] USAPerformed By: #### ESR #### [place] [address] USAChloride [Moles/Vol]102 mmol/DEjjjfx97-656Qak [facility] Physician GroupComment on above:Performed By: #### CBC, BMP #### [facility] [address] [place] [address] USAPerformed By: #### ESR #### [facility] [address] [place] [address] USACO2 [Moles/Vol]27.6 mmol/QTmztui89.0-31.0The [facility] Physician GroupComment on above:Performed By: #### CBC, BMP #### [facility] [address] [place] [address] USAPerformed By: #### ESR #### [facility] [address] [place] [address] USACreatinine [Mass/Vol]1.01 mg/dLNormal0.70-1.30The [facility] Physician GroupComment on above:Performed By: #### CBC, BMP #### [facility] [address] [place] [address] USAPerformed By: #### ESR #### [facility] [address] [place] [address] USACreatinine Clr Calc Fpfpccsz08.09NormalThe [facility] Physician GroupComment on above:Performed By: #### CBC, BMP #### [place] [address] USAPerformed By: #### ESR #### [place] [address] USAGFR/1.73 sq M.predicted MDRD (S/P/Bld) [Vol rate/Area] mL/min/{1.73_m2}NormalThe [facility] Physician GroupComment on above:Performed By: #### CBC, BMP #### [place] [address] USAPerformed By: #### ESR #### [place] [address] USAGlobulin (S) [Mass/Vol]2.5 g/dLNormalThe [facility] Physician GroupComment on above:Performed By: #### CBC, BMP #### [place] [address] USAPerformed By: #### ESR #### [place] [address] USAGlucose [Mass/Vol]120 mg/bWLzkl79-320Lyw [facility] Physician GroupComment on above:Result Comment: Random Glucose Reference Range is dependent on time and content of last meal. Glucose of more than 200 mg/dL in a nonstressed, ambulatory subject supports the diagnosis of Diabetes Mellitus. ADA recommended reference rangePerformed By: #### CBC, BMP #### [place] [address] USAPerformed By: #### ESR #### [place] [address] USAPotassium [Moles/Vol]4.8 mmol/LNormal3.5-5.1The [facility] Physician GroupComment on above:Performed By: #### CBC, BMP #### [place] [address] USAPerformed By: #### ESR #### [place] [address] USAProtein [Mass/Vol]6.4 g/dLNormal6.4-8.9The [facility] Physician GroupComment on above:Performed By: #### CBC, BMP #### [facility] [address] [place] [address] USAPerformed By: #### ESR #### [facility] [address] [place] [address] USASodium [Moles/Vol]137 mmol/VXtxmuy857-434Ubv [facility] Physician GroupComment on above:Performed By: #### CBC, BMP #### [facility] [address] [place] [address] USAPerformed By: #### ESR #### [facility] [address] [place] [address] USAUrea nitrogen [Mass/Vol]26 mg/dLHigh7-25The [facility] Physician GroupComment on above:Performed By: #### CBC, BMP #### [facility] [address] [place] [address] USAPerformed By: #### ESR #### [facility] [address] [place] [address] USACreatinine [Mass/volume] in Serum or PlasmaOrdered By: Talib Faustin on 06-92-4347Azsclsrjqh [Mass/Vol]Creatinine [Mass/volume] in Serum or Plasma0.70-1.30[facility] Memorial HospitalEosinophils Auto (Bld) [#/Vol]Ordered By: Talib Faustin on 49-49-1228Obhtwnexmsl (Bld) [#/Vol] Automated eosinophil count0.0-0.45[facility] Eosinophils/100 WBC Auto (Bld)Ordered By: Talib Faustin on 07-12-2024 Eosinophils/100 WBC (Bld)Automated eosinophil %.[facility] HospitalErythrocyte distribution width Auto (RBC) [Ratio]Ordered By: Talib Hargrove on 25-24-8076Fhbwzegcdyp distribution width (RBC) [Ratio]Erythrocyte distribution width [Ratio] by Automated count12.0-14.8[facility] Memorial HospitalGlobulin Calc (S) [Mass/Vol]Ordered By: Talib Faustin on 07-12-2024 Globulin (S) [Mass/Vol]Serum globulin measurement by calculation (mass/volume) [facility] HospitalGlucose [Mass/volume] in Serum or PlasmaOrdered By: Talib Faustin on 11-89-9450Glmlene [Mass/Vol]Glucose [Mass/volume] in Serum or LrgnqpNhxh56-762PzmorntosCommunity Memorial HospitalComment on above:ADA recommended reference rangeRandom Glucose Reference Range is dependent on time and content of last meal. Glucose of more than 200 mg/dL in a nonstressed, ambulatory subject supports the diagnosisof Diabetes Mellitus.Hematocrit Auto (Bld) [Volume fraction]Ordered By: Talib Faustin on 61-16-7871Tidaaqjkca (Bld) [Volume fraction]Hematocrit [Volume Fraction] of Blood by Automated countLow 38.8-50.0[facility] HospitalHemoglobin [Mass/volume] in Blood Ordered By: Talib Faustin on 97-71-7894Aohgpumhbf (Bld) [Mass/Vol]Hemoglobin [Mass/volume] in YuufdEdy94.0-17.0[facility] HospitalLeukocytes [#/volume] corrected for nucleated erythrocytes in Blood by Automated coun Ordered By: Talib Faustin on 12-12-1308IXY corrected for nucl RBC Auto (Bld) [#/Vol]Leukocytes [#/volume] corrected for nucleated erythrocytes in Blood by Automated coun4.1-10.5FFirelands Regional Medical Center South CampusLymphocytes Auto (Bld) [#/Vol]Ordered By: Talib Faustin on 10-32-5246Gwanitcmzds (Bld) [#/Vol] Lymphocytes [#/volume] in Blood by Automated count1.00-4.8[facility] HospitalLymphocytes/100 WBC Auto (Bld)Ordered By: Talib Faustin on 28-41-0630Ozirysmrqny/100 WBC (Bld)Lymphocytes/100 leukocytes in Blood by Automated count.[facility] Auto (RBC) [Entitic mass] Ordered By: Talib Faustin on 60-44-9369MGE (RBC) [Entitic mass]MCH [Entitic mass] by Automated count27.5-35.2[facility] Medical CenterMCHC Auto (RBC) [Mass/Vol]Ordered By: Talib Faustin on 79-42-8320GCPD (RBC) [Mass/Vol] MCHC [Mass/volume] by Automated count32.5-35.6FFirelands [facility] Campus MCV Auto (RBC) [Entitic vol]Ordered By: Talib Faustin on 55-25-7340JTW (RBC) [Entitic vol]MCV [Entitic volume] by Automated count83.5-101[facility] HospitalMagnesiumon 25-66-0890Tlckoluvd [Mass/Vol]1.9 mg/dLNormal1.9-2.7 The [facility] Physician GroupComment on above:Result Comment: PERFORMED BY: [place] [address] PATHOLOGIST SUPERVISOR ENGINE REPAIR HEBER SHANNON M.D.Performed By: #### CBC, BMP #### [facility] [address] [place] [address] USAPerformed By: #### ESR #### [facility] [address] [place] [address] USAMagnesium [Mass/volume] in Serum or PlasmaOrdered By: Talib Faustin on 53-97-0577Yonrgecbr [Mass/Vol]Magnesium [Mass/volume] in Serum or Plasma1.9-2.7FFirelands Regional Medical Center South CampusMonocytes Auto (Bld) [#/Vol] Ordered By: Talib Faustin on 41-01-7036Zdmwscxcv (Bld) [#/Vol]Automated blood monocyte count0.0-0.8[facility] HospitalMonocytes/100 WBC Auto (Bld)Ordered By: rick Faustin on 01-94-4908Odnqgczan/100 WBC (Bld)Automated monocyte %.[facility] HospitalNeutrophils Auto (Bld) [#/Vol] Ordered By: Talib Faustin on 41-44-7523Fqovuppmvod (Bld) [#/Vol]Neutrophils [#/volume] in Blood by Automated count1.8-7.7FFirelands Regional Medical Center [facility] Campus Neutrophils/100 WBC Auto (Bld)Ordered By: Talib Faustin on 07-12-2024 Neutrophils/100 WBC (Bld)Automated neutrophil %.[facility] Memorial HospitalNo Panel InformationOrdered By: Talib Faustin on 87-27-2566Flaszgvze GFR (CKD-EPI)> 60.0 mL/MinCommunity Memorial HospitalPharmacy Creatinine Clearance (Chem53.09[facility] HospitalNucleated erythrocytes [Presence] in Blood by Automated countOrdered By: Talib Faustin on 07-12-2024 Nucleated RBC Auto Ql (Bld)Nucleated erythrocytes [Presence] in Blood by Automated count0-0.5FFirelands Regional Medical Center South CampusPlatelet mean volume Auto (Bld) [Entitic vol]Ordered By: Talib Faustin on 42-44-9798Ylkxrcmq mean volume (Bld) [Entitic vol]Platelet mean volume [Entitic volume] in Blood by Automated count6.6-10.1FFirelands Regional Medical Center South CampusPlatelets Auto (Bld) [#/Vol] Ordered By: Talib Faustin on 49-74-9792Iprtcytkf (Bld) [#/Vol]Platelets [#/volume] in Blood by Automated -320StemusiycCommunity Memorial Hospital Potassium [Moles/volume] in Serum or PlasmaOrdered By: Talib Faustin on 75-67-7754Usughkcod [Moles/Vol]Potassium [Moles/volume] in Serum or Plasma 3.5-5.1FFirelands Regional Medical Center South CampusProtein [Mass/volume] in Serum or Plasma Ordered By: Talib Faustin on 99-79-9975Jbcinai [Mass/Vol]Protein [Mass/volume] in Serum or Plasma6.4-8.9[facility] HospitalRBC Auto (Bld) [#/Vol] Ordered By: Talib Faustin on 42-99-4591GEJ (Bld) [#/Vol]Erythrocytes [#/volume] in Blood by Automated count3.90-5.60[facility] - Dublinerum or plasma albumin/globulin mass ratioOrdered By: Talib Faustin on 07-12-2024 Albumin/Globulin [Mass ratio]Serum or plasma albumin/globulin mass ratio [facility] - Dublinerum or plasma anion gap determinationOrdered By: rick Faustin on 23-13-4113Olvxg gap [Moles/Vol]Serum or plasma anion gap determination6.0-15.0[facility] - Dublinodium [Moles/volume] in Serum or PlasmaOrdered By: rick Faustin on 23-58-9876Xpdnwc [Moles/Vol]Sodium [Moles/volume] in Serum or Ndvyfa553-760QwteqbuqdCommunity Memorial HospitalUrea nitrogen [Mass/volume] in Serum or PlasmaOrdered By: rick Faustin on 46-89-7969Doay nitrogen [Mass/Vol]Urea nitrogen [Mass/volume] in Serum or Plasma High7-25[facility] HospitalWBC Auto (Bld) [#/Vol]Ordered By: rick Faustin on 37-82-6625CHN (Bld) [#/Vol]Leukocytes [#/volume] in Blood by Automated count4.1-10.5FFirelands Regional Medical Center South CampusANESon 63-63-5744IGLL Attestation signed by Stacey Patel MD at [...] Procedure: PPM generator change - dual Location: [facility] EMERGENCY MANAGER 1 / [facility] VASCULAR LAB (Cath) Providers: Stacey Patel MD [...] discussed with attending. Additional Equipment RequestsNormalUniversity of Dell Children'S Medical CenterHPon [id number] Attestation signed by Stacey Patel MD at [...] be an additional personal documentation from me. [place] Electrophys[place] Consult Note [place] Cardiology Reason for visit: gen change 07/10/2024 [...] ECG Bradycardia Coronary artery disease Diabetes mellitus ([facility] Heart valve disease Hyperlipidemia VT (ventricular tachycardia) ([facility]) PSH: Surgical History Past Surgical History: Procedure Laterality Date ABLATION OF DYSRHYTHMIC FOCUS CARDIAC CATHETERIZATION INSERT / REPLACE / REMOVE PACEMAKER SH: Social Determinants of Health Tobacco Use: Medium Risk (05/11/2024) Received from [facility] Patient History Smoking Tobacco Use: Former Smokeless Tobacco Use: Former Passive Exposure: Not on file Alcohol Use: Not on file Financial Resource Strain: Not on file Food Insecurity: Not on file Transportation Needs: Not on file Physical Activity: Not on file Stress: Not on file Social Connections: Not on file Intimate Partner Violence: Unknown (07/08/2023) [place] Safety & Environment Fear of Current or Ex-Partner: Not on file Emotionally Abused: Not on file Physically Abused: Not on file Sexually Abused: Not on file Physically or Sexually Abused: Not on file Depression: Not at risk (04/07/2024) Received from [facility] PHQ-2 Patient Health Questionnaire-2 Score: 0 Housing [...] upstroke, no b (more content not included)... NormalHolmes County Joel Pomerene Memorial HospitalNURSNOTEon 88-66-7531UHJVFWLPDL educated pt on d/c instructions. This included: [...] wheeled off of unit with all of belongings.NormalUnLouis Stokes Cleveland VA Medical CenterNURSNOTECHG wipes and betadine nasal swabs completed.Normal [place] [facility] Memorial HospitalOrders Onlyon 25-09-3936Wcnybz [id number] Jeremie Bennett 1940 M Date Provider Department Center 07/10/2024 ELIF GONZALEZ [facility] Family History Problem Relation Age of Onset Coronary artery disease Mother Kidney disease Mother Heart failure Mother Family Status - Relation Status Age at MotherNormalUniversSelect Medical OhioHealth Rehabilitation Hospital - DublinCBC w/ Auto DiffOrdered By: SYSTEM SYSTEM on 20-49-3769Jfqg form neutrophils/100 WBC (Bld)8.0 %High0.0-6.0 Remisol HemeComment on above:Performed By: #### [id number] #### [facility] [address], [place] [address]Mexujjtvs (Bld) [#/Vol]0.0 E9/LNormal0.0-0.2Remisol HemeComment on above:Performed By: #### [id number] #### [facility] [address], [place] [address]Nolemfvlfbh (Bld) [#/Vol]0.0 E9/LNormal0.0-0.5Remisol Heme Comment on above:Performed By: #### [id number] #### [facility] [address], [place] [address]Iwlnyjnztjs/100 WBC (Bld)0.0 %Normal0.0-8.0Remisol HemeComment on above:Performed By: #### [id number] #### [facility] [address], [place] [address]Axngpvtgfxl distribution width (RBC) [Ratio]13.9 %Normal 10.9-14.2Remisol HemeComment on above:Performed By: #### [id number] #### [facility] [address], [place] [address]Ftyzxbfiqp (Bld) [Volume fraction]39.7 %Jhnpri33.7-49.0Remisol HemeComment on above:Performed By: #### [id number] #### [facility] [address] [place] [address]Fjoaqmunbf (Bld) [Mass/Vol]13.3 g/dLLow13.5-17.5Remisol Heme Comment on above:Performed By: #### [id number] #### [facility] [address] [place] [address]Fkbjadpyfuk (Bld) [#/Vol]2.2 E9/LNormal1.0-4.0Remisol Heme Comment on above:Performed By: #### [id number] #### [facility] [address] [place] [address]Kfqzeqwhspf/100 WBC (Bld)20.0 %Mgavpr92.0-50.0Remisol Heme Comment on above:Performed By: #### [id number] #### [facility] [address] [place] [address] 25608EGD (RBC) [Entitic mass]31.3 fpMbnqte68.0-34.0Remisol Heme Comment on above:Performed By: #### [id number] #### [facility] [address] [place] [address]XXBD (RBC) [Mass/Vol]33.4 g/zPFkpdvt47.4-36.0Remisol Heme Comment on above:Performed By: #### [id number] #### [facility] [address] [place] [address] 605[address]CYG (RBC) [Entitic vol]93.5 vZVjmabh20.0-100.0Remisol Heme Comment on above:Performed By: #### [id number] #### [facility] [address] [place] [address] 99677Mlcjbujll (Bld) [#/Vol]0.6 E9/LNormal0.2-1.0Remisol HemeComment on above:Performed By: #### [id number] #### [facility] [address], [place] [address]Wyekxikeip/100 WBC (Bld)3.0 %High0.0-0.0Remisol HemeComment on above:Performed By: #### [id number] #### [facility] [address] [place] [address] 598[address]Dtrieeksijd (Bld) [#/Vol]7.4 E9/LInvalid Interpretation Code Remisol HemeComment on above:Performed By: #### [id number] #### [facility] [address] [place] [address] 25687Zbfvdtfy348.0 E9/DQiuelb994.0-500.0Remisol HemeComment on above:Performed By: #### [id number] #### [facility] [address] [place] [address]Kcnytwsa mean volume (Bld) [Entitic vol]9.2 fLNormal6.4-10.8 Remisol HemeComment on above:Performed By: #### [id number] #### [facility] [address] [place] [address] 11963HFB (Bld) [#/Vol]4.2 E12/LLow4.3-5.9Remisol HemeComment on above:Performed By: #### [id number] #### [facility] [address] [place] [address]Idyhzvavk neutrophils/100 WBC (Bld)62.0 %Ugxvpj69.0-75.0Remisol HemeComment on above:Performed By: #### [id number] #### [facility] [address] [place] [address]Eyaarfe lymphocytes/100 WBC (Bld)1.0 %High0.0-0.0Remisol Heme Comment on above:Performed By: #### [id number] #### [facility] [address] [place] [address]CFC corrected for nucl RBC Auto (Bld) [#/Vol]10.5 E9/LNormal 4.0-11.0Remisol HemeComment on above:Performed By: #### [id number] #### [facility] [address], [place] [address]TGT w/ Auto Diffon 24-10-4921LRA size Nom (Bld)NORMALInvalid Interpretation CodeFisher [facility] Center And HospitalComment on above:Performed By: #### [id number] #### [facility] [address], [place] [address]WHPWIRVKHGnpaswv By: SYSTEM SYSTEM on 07-03-2024 Albumin/Globulin [Mass ratio]1.5 {ratio}Normal1.1 - 2.2Remisol ChemALP [Catalytic activity/Vol]70 [iU]/tXpuucd30 - 98 Int._Unit/LRemisol ChemALT No additional P-5'-P [Catalytic activity/Vol]24 [iU]/dNormal6 - 46 Int._Unit/L Remisol ChemAST [Catalytic activity/Vol]20 [iU]/dNormal5 - 43 Int._Unit/LRemisol ChemUrea nitrogen/Creatinine [Mass ratio]20 mg/ksWbrmlf50 - 20Remisol ChemCMP Ordered By: SYSTEM SYSTEM on 93-03-1954Nrgpmhi [Mass/Vol]4.0 g/dLNormal3.3-5.0 Remisol ChemComment on above:Performed By: #### [id number] #### [facility] [address], [place] [address]Hayzr gap [Moles/Vol]10 mmol/LNormal6-16Remisol ChemComment on above:Performed By: #### [id number] #### [facility] [address], [place] [address]Krioapoxc [Mass/Vol]0.3 mg/dLNormal0.0-1.1Remisol ChemComment on above:Performed By: #### [id number] #### [facility] [address], [place] [address]Lfpcazq [Mass/Vol]9.1 mg/dLNormal8.9-11.1Remisol ChemComment on above:Performed By: #### [id number] #### [facility] [address], [place] [address]Nwtktuuw [Moles/Vol]107 mmol/VUwcpcg520-442Drvpqac ChemComment on above:Performed By: #### [id number] #### [facility] [address], [place] [address]HX5 [Moles/Vol]28 mmol/BZhyfgp10-98Iomrdmg ChemComment on above:Performed By: #### [id number] #### [facility] [address], [place] [address]Yxdakqdkaz [Mass/Vol]1.0 mg/dLNormal0.5-1.3Remisol ChemComment on above:Performed By: #### [id number] #### [facility] [address], [place] [address]Tbplzsoz (S) [Mass/Vol]2.7 g/dLNormal1.4-4.0Remisol ChemComment on above:Performed By: #### [id number] #### [facility] [address], [place] [address]Wcaudim [Mass/Vol]138 mg/kBWrxpvi41-005Xqcjptb ChemComment on above:Performed By: #### [id number] #### [facility] [address], [place] [address]Nkdyuujgl [Moles/Vol]4.5 mmol/LNormal3.5-5.3Remisol ChemComment on above:Performed By: #### [id number] #### [facility] [address], [place] [address]Rgvmzms [Mass/Vol]6.7 g/dLNormal6.0-7.8Remisol ChemComment on above:Performed By: #### [id number] #### [facility] [address], [place] [address]Gjaqdw [Moles/Vol]140 mmol/KCaycra218-653Smpjhpl ChemComment on above:Performed By: #### [id number] #### [facility] [address], [place] [address]Ffmc nitrogen [Mass/Vol]20 mg/dLNormal5-21Remisol ChemComment on above:Performed By: #### [id number] #### [facility] [address] [place] [address]KTWcq 69-03-8547Xvtbvxv/Globulin (S) [Mass conc ratio]1.5Normal 1.1-2.2FSt. Charles HospitalComment on above:Performed By: #### [id number] #### [facility] [address], [place] [address]MUP [Catalytic activity/Vol]70 Int._Unit/WSajehg35-09XyqmieLutheran HospitalComment on above:Performed By: #### [id number] #### [facility] [address] [place] [address] 275[address]NHT No additional P-5'-P [Catalytic activity/Vol]24 Int._Unit/L Normal6-46Lutheran HospitalComment on above:Performed By: #### [id number] #### [facility] [address] [place] [address]JBZ [Catalytic activity/Vol]20 Int._Unit/LNormal5-43Lutheran HospitalComment on above:Performed By: #### [id number] #### [facility] [address] [place] [address]Maqu nitrogen/Creatinine [Mass ratio]20 No AoycoDlmclh50-54 Lutheran HospitalComment on above:Performed By: #### [id number] #### [facility] [address], [place] [address]QPKIBIEGXMPfpaftx By: SYSTEM SYSTEM on 52-55-5606Gphsfccdx/100 WBC (Bld)0.0 %Normal0.0 - 2.0 %Remisol HemeMonocytes/100 WBC (Bld)6.0 %Normal4.0 - 14.0 %Remisol HemeRBC size Nom (Bld)NORMAL *NA* (07/03/24 12:00 PM)Invalid Interpretation CodeRemisol HemeMagnesiumOrdered By: SYSTEM SYSTEM on 46-69-4240Vmljjztcs [Mass/Vol]2.0 mg/dLNormal1.3-2.4Remisol ChemComment on above:Performed By: #### [id number] #### [facility] [address], [place] [address]eZSDEbcznzj By: SYSTEM SYSTEM on 88-98-6485oCKA24 mL/min/1.73 y4Tmbkxw>=59Remisol ChemComment on above:Performed By: #### [id number] #### [facility] [address], [place] [address]vd 19-96-622088Xku Dr Arellano pt was called to schedule cardiac clearance appt. Pt stated he would rather be seen in [place], so I advised pt to call and schedule with them.[facility] SystemNo Panel Informationon 06-23-2024 [employer] Audiometry Audio indicated a mild to severe sensorineural hearing loss 250-8000 Hz, bilaterally. [facility] HealthcareBasic Metabolic Panelon 49-04-5777Cnoxd gap [Moles/Vol]8.5 mmol/LNormal6.0-15.0The [facility] Physician GroupComment on above:Performed By: #### CBC, BMP #### [facility] [address] [place] [address] USACalcium [Mass/Vol]9.0 mg/dLNormal8.6-10.3The [facility] Physician GroupComment on above:Result Comment: PERFORMED BY: [place] [address] PATHOLOGIST SUPERVISOR ENGINE REPAIR HEBER SHANNON M.D.Performed By: #### CBC, BMP #### [facility] [address] [place] [id number] USAChloride [Moles/Vol]110 mmol/FQvfy88-049Brp [facility] Physician GroupComment on above:Performed By: #### CBC, BMP #### [facility] [address] [place] [address] USACO2 [Moles/Vol]24.5 mmol/EMmrwkn14.0-31.0The [facility] Physician GroupComment on above:Performed By: #### CBC, BMP #### [facility] [address] [place] [address] USACreatinine [Mass/Vol]0.97 mg/dLNormal0.70-1.30The [facility] Physician GroupComment on above:Performed By: #### CBC, BMP #### [facility] [address] [place] [address] USAGFR/1.73 sq M.predicted MDRD (S/P/Bld) [Vol rate/Area] mL/min/{1.73_m2}NormalThe [facility] Physician GroupComment on above:Performed By: #### CBC, BMP #### [place] [address] USAGlucose [Mass/Vol]118 mg/bOAmkl61-693Tui [facility] Physician GroupComment on above:Result Comment: Random Glucose Reference Range is dependent on time and content of last meal. Glucose of more than 200 mg/dL in a nonstressed, ambulatory subject supports the diagnosis of Diabetes Mellitus. ADA recommended reference rangePerformed By: #### CBC, BMP #### [place] [address] USAPotassium [Moles/Vol]4.0 mmol/LNormal3.5-5.1The [facility] Physician GroupComment on above:Performed By: #### CBC, BMP #### [place] [address] USASodium [Moles/Vol]139 mmol/LSyzpgj602-414Tbo [facility] Physician GroupComment on above:Performed By: #### CBC, BMP #### [place] [address] USAUrea nitrogen [Mass/Vol]19 mg/dLNormal7-25The [facility] Physician GroupComment on above:Performed By: #### CBC, BMP #### [place] [address] USABasic metabolic 1998 panelon 66-13-3699Rombz gap [Moles/Vol]8.5 mmol/L6.0 - 15.0 meq/LNOMS HealthcareCalcium [Mass/Vol]9 mg/dL8.6 - 10.3 mg/dLNOWA HealthcareChloride [Moles/Vol]110 mmol/LHigh98 - 107 mmol/L [facility] HealthcareCO2 [Moles/Vol]24.5 mmol/L21.0 - 31.0 mmol/LNOMS Healthcare Creatinine (U) [Mass/Vol]0.97 mg/dL0.70 - 1.30 mg/dLNOWA HealthcareESTIMATED GFR mL/MinNOWA HealthcareGlucose [Mass/Vol]118 mg/yFUrfl31 - 100 mg/dLNOWA HealthcareComment on above:Random Glucose Reference Range is dependent on time and content of last meal. Glucose of more than 200 mg/dL in a nonstressed, ambulatory subject supports the diagnosis of Diabetes Mellitus. ADA recommended reference range Interpretation and review of laboratory resultsAbnormalNOMS HealthcarePotassium [Moles/Vol]4 mmol/L3.5 - 5.1 mmol/LNOMS HealthcareSodium [Moles/Vol]139 mmol/L 136 - 145 mmol/LNOMS HealthcareUrea nitrogen [Mass/Vol]19 mg/dL7 - 25 mg/dLNOBoone Hospital CenterNOWA HealthcareBasophils Auto (Bld) [#/Vol]Ordered By: Matteo Melo on 01-24-1598Xwcligzii (Bld) [#/Vol]Automated basophil count0.0-0.2FFirelands Regional Medical Center South CampusBasophils/100 WBC Auto (Bld)Ordered By: Matteo Melo on 25-78-3838Rpwddeicn/100 WBC (Bld)Automated basophil %.[facility] W Auto Differential panel (Bld)on 90-50-0914Sgurccnkc (Bld) [#/Vol] 0.1 10*3/uL0.0 - 0.2 10*3/uLBL[facility] MOUNTAIN HOSPITAL HealthcareBasophils/100 WBC Manual cnt (Syn fld)0.7 %.[facility] HealthcareEosinophils (Bld) [#/Vol]0.4 10*3/uL0.0 - 0.45 10*3/uL [facility] HealthcareEosinophils/100 WBC Manual cnt (Syn fld)5 %.[facility] Erythrocyte distribution width (RBC) [Ratio]13.4 %12.0 - 14.8 %[facility] Hematocrit (Bld) [Volume fraction]40.7 %38.8 - 50.0 %[facility] HospitalHemoglobin (Bld) [Mass/Vol]13.7 g/dL13.0 - 17.0 g/dLBLUE MOUNTAIN HOSPITAL HealthcareLymphocytes (Bld) [#/Vol]2.5 10*3/uL1.00 - 4.8 10*3/uLNOMS HealthcareLymphocytes/100 WBC Manual cnt (Syn fld)30.2 %.[facility]SmithvilleH (RBC) [Entitic mass]31 pg27.5 - 35.2 pg [facility]SmithvilleHC (RBC) [Mass/Vol]33.7 g/dL32.5 - 35.6 g/dLSaint Luke's North Hospital–SmithvilleV (RBC) [Entitic vol]92 fL83.5 - 101 fLBLUE MOUNTAIN HOSPITAL HealthcareMonocytes (Bld) [#/Vol]0.7 10*3/uL0.0 - 0.8 10*3/uLNOWA HealthcareMonocytes+Macrophages/100 WBC Manual cnt (Syn fld)8.8 %.[facility] HospitalNeutrophils (Bld) [#/Vol]4.6 10*3/uL1.8 - 7.7 10*3/uLNOMS HealthcareNeutrophils/100 WBC Manual cnt (Syn fld)55.3 %.[facility] HospitalNRBC0.2 /100{WBC}0 - 0.5 /100{WBC}[facility] HealthcarePlatelet mean volume (Bld) [Entitic vol]8.9 fL6.6 - 10.1 fLBLUE MOUNTAIN HOSPITAL HealthcarePlatelets (Bld) [#/Vol]234 10*3/uL150 - 450 10*3/uLNOMS HealthcareRBC LM.HPF (Urine sed) [#/Area]4.43 10*6/uL3.90 - 5.60 10*6/uLNOMS HealthcareWBC (Bld) [#/Vol]8.4 10*3/uL4.1 - 10.5 10*3/uLNOMS HealthcareWBC LM.HPF (Urine sed) [#/Area]8.4 10*3/uL4.1 - 10.5 10*3/uLNOMS HealthcareNOMS HealthcareCalcium [Mass/volume] in Serum or Plasma Ordered By: Matteo Melo on 90-22-7196Tmmaizf [Mass/Vol]Calcium [Mass/volume] in Serum or Plasma8.6-10.3FFirelands Regional Medical Center South CampusCarbon dioxide, total [Moles/volume] in Serum or PlasmaOrdered By: Matteo Melo on 98-80-8227FX4 [Moles/Vol]Carbon dioxide, total [Moles/volume] in Serum or Jadhxs25.0-31.0 [facility] HospitalChloride [Moles/volume] in Serum or Plasma Ordered By: Matteo Melo on 97-96-6990Vkqvfkhr [Moles/Vol]Chloride [Moles/volume] in Serum or FrnqfmEclv20-216LxpxnmfgzCommunity Memorial Hospital Complete Blood Count Auto Diffon 64-04-2119Tsqxpkaos (Bld) [#/Vol]0.1 10*3/uL Normal0.0-0.2The [facility] Physician GroupComment on above:Result Comment: PERFORMED BY: [place] [address] PATHOLOGIST SUPERVISOR ENGINE REPAIR HEBER SHANNON M.D.Performed By: #### CBC, BMP #### [place] [address] USABasophils/100 WBC (Bld)0.7 %Normal.The [facility] Physician GroupComment on above:Performed By: #### CBC, BMP #### [facility] [address] [place] [address] USAEosinophils (Bld) [#/Vol]0.4 10*3/uLNormal0.0-0.45The [facility] Physician GroupComment on above:Performed By: #### CBC, BMP #### [place] [address] USAEosinophils/100 WBC (Bld)5.0 %Normal.The [facility] Physician GroupComment on above:Performed By: #### CBC, BMP #### [place] [address] USAErythrocyte distribution width (RBC) [Ratio]13.4 %Normal 12.0-14.8The [facility] Physician GroupComment on above:Performed By: #### CBC, BMP #### [place] [address] USAHematocrit (Bld) [Volume fraction]40.7 %Muiwvr79.8-50.0The [facility] Physician GroupComment on above:Performed By: #### CBC, BMP #### [place] [address] USAHemoglobin (Bld) [Mass/Vol]13.7 g/tFRxvzhl95.0-17.0The [facility] Physician GroupComment on above:Performed By: #### CBC, BMP #### [place] [address] USALymphocytes (Bld) [#/Vol]2.5 10*3/uLNormal1.00-4.8The [facility] Physician GroupComment on above:Performed By: #### CBC, BMP #### [place] [address] USALymphocytes/100 WBC (Bld)30.2 %Normal.The [facility] Physician GroupComment on above:Performed By: #### CBC, BMP #### [place] [address] USAMCH (RBC) [Entitic mass]31.0 ylHvsdtu33.5-35.2The [facility] Physician GroupComment on above:Performed By: #### CBC, BMP #### [place] [address] USAMCV (RBC) [Entitic vol]92.0 yRYkxaej37.5-101The [facility] Physician GroupComment on above:Performed By: #### CBC, BMP #### [place] [address] USAMean Corpuscular HGB Conc33.7 g/zFHoockl91.5-35.6The [facility] Physician GroupComment on above:Performed By: #### CBC, BMP #### [facility] [address] [place] [address] USAMonocytes (Bld) [#/Vol]0.7 10*3/uLNormal0.0-0.8The [facility] Physician GroupComment on above:Performed By: #### CBC, BMP #### [facility] [address] [place] [address] USAMonocytes/100 WBC (Bld)8.8 %Normal.The [facility] Physician GroupComment on above:Performed By: #### CBC, BMP #### [facility] [address] [place] [address] USANeutrophils (Bld) [#/Vol]4.6 10*3/uLNormal1.8-7.7The [facility] Physician GroupComment on above:Performed By: #### CBC, BMP #### [place] [address] USANeutrophils/100 WBC (Bld)55.3 %Normal.The [facility] Physician GroupComment on above:Performed By: #### CBC, BMP #### [facility] [address] [place] [address] USANRBC%0.2 /100{WBC}Normal0-0.5The [facility] Physician Group Comment on above:Performed By: #### CBC, BMP #### [facility] [address] [place] [address] USAPlatelet mean volume (Bld) [Entitic vol]8.9 fLNormal 6.6-10.1The [facility] Physician GroupComment on above:Performed By: #### CBC, BMP #### [facility] [address] [place] [address] USAPlatelets (Bld) [#/Vol]234 10*3/lHWpqynl498-023Taf [facility] Physician GroupComment on above:Performed By: #### CBC, BMP #### [facility] [address] [place] [address] USARBC (Bld) [#/Vol]4.43 10*6/uLNormal3.90-5.60[facility] Physician GroupComment on above:Performed By: #### CBC, BMP #### [facility] [address] [place] [address] USAWBC (Bld) [#/Vol]8.4 10*3/uLNormal4.1-10.5The [facility] Physician GroupComment on above:Performed By: #### CBC, BMP #### [facility] [address] [place] [id number] USACreatinine [Mass/volume] in Serum or PlasmaOrdered By: Matteo Melo on 50-32-0480Clrgxcjxfe [Mass/Vol]Creatinine [Mass/volume] in Serum or Plasma0.70-1.30Community Memorial HospitalECG 12 lead ECGon 99-30-4932YXP 12 lead [facility] [place] [address] Electrocardiograph Report Signed Patient: Jeremie Bennett MR#: [id number] 812 : 1940 Acct:[id number] Age/Sex: 83 / M ADM Date: 06/22/24 Loc: Room: Type: [facility] Attending Dr: Matteo Melo [...] previous ECGs available Confirmed by JACK CASON, AMILCAR ([id number]) on 06/23/2024 3:17:12 PM Referred By: Electronically Signed By: AMILCAR SANTIAGO MD Transcribed By: MUS Signed By Amilcar Santiago MD 0 06/23/24 1517[facility] Physician [facility] SystemEC[facility] 12 [facility]REG[facility]AL [place] [address] Electrocardiograph Report Signed Patient: Jeremie Bennett MR#: [id number] 669 : 1940 Acct:[id number] Age/Sex: 83 / M ADM Date: 06/22/24 Loc: PS Room: Type: [facility] Attending Dr: Matteo Melo [...] Signed By Amilcar Santiago MD 0 06/23/[address] [place] [address] Physician GroupEosinophils Auto (Bld) [#/Vol] Ordered By: Matteo Melo on 87-07-9451Gwsznsfnwce (Bld) [#/Vol]Automated eosinophil count0.0-0.45[facility] Memorial HospitalEosinophils/100 WBC Auto (Bld)Ordered By: Matteo Melo on 70-46-9402Tmwkljuftjr/100 WBC (Bld) Automated eosinophil %.[facility] Memorial HospitalErythrocyte distribution width Auto (RBC) [Ratio]Ordered By: Matteo Melo on 59-36-6240Ygrzozhqycr distribution width (RBC) [Ratio]Erythrocyte distribution width [Ratio] by Automated count12.0-14.8[facility] Memorial HospitalGlucose [Mass/volume] in Serum or PlasmaOrdered By: Matteo Melo on 42-30-9236Ojtvsoy [Mass/Vol] Glucose [Mass/volume] in Serum or PljvkkJttn58-919UwbxtjrnrCommunity Memorial HospitalComment on above:ADA recommended reference rangeRandom Glucose Reference Range is dependent on time and content of last meal. Glucose of more than 200 mg/dL in a nonstressed, ambulatory subject supports the diagnosisof Diabetes Mellitus.Hematocrit Auto (Bld) [Volume fraction]Ordered By: Matteo Melo on 74-73-2563Drzwwxnwqf (Bld) [Volume fraction]Hematocrit [Volume Fraction] of Blood by Automated count38.8-50.0[facility] HospitalHemoglobin [Mass/volume] in BloodOrdered By: Matteo Melo on 09-88-7817Elebaloyyx (Bld) [Mass/Vol]Hemoglobin [Mass/volume] in Blood13.0-17.0[facility] HospitalLeukocytes [#/volume] corrected for nucleated erythrocytes in Blood by Automated counOrdered By: Matteo Melo on 61-12-1743RFP corrected for nucl RBC Auto (Bld) [#/Vol]Leukocytes [#/volume] corrected for nucleated erythrocytes in Blood by Automated coun4.1-10.5FFirelands Regional Medical Center South CampusLymphocytes Auto (Bld) [#/Vol]Ordered By: Matteo Melo on 62-68-8851Jqpradeyllx (Bld) [#/Vol] Lymphocytes [#/volume] in Blood by Automated count1.00-4.8[facility] HospitalLymphocytes/100 WBC Auto (Bld)Ordered By: Matteo Melo on 75-42-9169Dlukrphafrz/100 WBC (Bld)Lymphocytes/100 leukocytes in Blood by Automated count.[facility] HospitalH Auto (RBC) [Entitic mass] Ordered By: Matteo Melo on 87-71-9592BKJ (RBC) [Entitic mass]MCH [Entitic mass] by Automated count27.5-35.2FSelect Medical Specialty Hospital - Columbus SouthHC Auto (RBC) [Mass/Vol]Ordered By: Matteo Melo on 56-34-8283NJMM (RBC) [Mass/Vol]MCHC [Mass/volume] by Automated count32.5-35.6FSelect Medical Specialty Hospital - Columbus SouthV Auto (RBC) [Entitic vol]Ordered By: Matteo Melo on 10-00-4841JFG (RBC) [Entitic vol]MCV [Entitic volume] by Automated count83.5-101[facility] HospitalMonocytes Auto (Bld) [#/Vol]Ordered By: Matteo Melo on 53-32-1044Ydfvhfdcx (Bld) [#/Vol]Automated blood monocyte count0.0-0.8[facility] HospitalMonocytes/100 WBC Auto (Bld)Ordered By: Matteo Melo on 86-65-5816Enfdlhoss/100 WBC (Bld)Automated monocyte %.[facility] HospitalNeutrophils Auto (Bld) [#/Vol]Ordered By: Matteo Melo on 06-22-2024 Neutrophils (Bld) [#/Vol]Neutrophils [#/volume] in Blood by Automated count 1.8-7.7FFirelands Regional Medical Center South CampusNeutrophils/100 WBC Auto (Bld)Ordered By: Matteo Melo on 96-35-3825Peuwjmxktmj/100 WBC (Bld)Automated neutrophil %. [facility] HospitalNo Panel InformationOrdered By: Matteo Melo on 41-70-6834Ghwlaprtt GFR (CKD-EPI)> 60.0 mL/MinCommunity Memorial HospitalPharmacy Creatinine Clearance (ChemN/[facility] Nucleated erythrocytes [Presence] in Blood by Automated countOrdered By: Matteo Melo on 16-76-0642Vlbuybtwk RBC Auto Ql (Bld)Nucleated erythrocytes [Presence] in Blood by Automated count0-0.5FFirelands Regional Medical Center South CampusPlatelet mean volume Auto (Bld) [Entitic vol]Ordered By: Matteo Melo on 89-58-0412Dmqelkvs mean volume (Bld) [Entitic vol]Platelet mean volume [Entitic volume] in Blood by Automated count6.6-10.1FFirelands Regional Medical Center South CampusPlatelets Auto (Bld) [#/Vol]Ordered By: Matteo Melo on 60-73-7645Xefrricir (Bld) [#/Vol]Platelets [#/volume] in Blood by Automated hwisc950-745SqebsiglvCommunity Memorial Hospital Potassium [Moles/volume] in Serum or PlasmaOrdered By: Matteo Melo on 82-29-7803Qfwndrdgy [Moles/Vol]Potassium [Moles/volume] in Serum or Plasma 3.5-5.1FFirelands Regional Medical Center South CampusRBC Auto (Bld) [#/Vol]Ordered By: Matteo Melo on 34-39-4406NYV (Bld) [#/Vol]Erythrocytes [#/volume] in Blood by Automated count3.90-5.60[facility] Hospital - Dublinerum or plasma anion gap determinationOrdered By: Matteo Melo on 25-40-7778Rhskb gap [Moles/Vol] Serum or plasma anion gap determination6.0-15.0[facility] Sodium [Moles/volume] in Serum or PlasmaOrdered By: Matteo Melo on 06-22-2024 Sodium [Moles/Vol]Sodium [Moles/volume] in Serum or Kwmrbl502-747NzagjwmtvCommunity Memorial HospitalUrea nitrogen [Mass/volume] in Serum or PlasmaOrdered By: Matteo Melo on 91-11-3311Crtq nitrogen [Mass/Vol]Urea nitrogen [Mass/volume] in Serum or Plasma7-25[facility] HospitalWBC Auto (Bld) [#/Vol] Ordered By: Matteo Melo on 09-02-9109TZI (Bld) [#/Vol]Leukocytes [#/volume] in Blood by Automated count4.1-10.5FLicking Memorial Hospitalurgical pathology studyon 09-44-5516Gzcaxkhz pathology studyPathology report.total SEE COMMENT Surgical Pathology Case: [id number] Authorizing Provider: Mary Ly MD Collected: 06/05/2024 1609 Ordering Location: [facility] Received: 06/05/[address] [place] [address] Pathologist: Alessandro Arzate DDS Specimen: LYMPH NODE BIOPSY Path report.final diagnosis SEE COMMENT Lymph node, core biopsy: - Metastatic non-keratinizing squamous cell carcinoma, see note. 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 P16 by immunohistochemistry: Equivocal. 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 Reference Range (p16): Negative: <50% strong nuclear [...] is submitted in toto in one cassette. [facility] AP ASR DISCLAIMER One or more of the reagents used to perform assays on this specimen MAY have contained components considered to be analyte specific reagents (ASR's). ASR's have not been cleared or approved by the U.S. Food and Drug Administration. These assays were developed and their performance characteristics determined by the Department of Pathology at [facility]. The FDA does not require this test to go through premarket FDA review. This test is used for clinical purposes. It should not be regarded as investigational or for research. This laboratory is certified under the Clinical Laboratory Improvement Amendments (CLIA) as qualified to perform high complexity clinical laboratory testing. The assays were performed with appropriate positive and negative controls which stained appropriately.[facility] Campus Medical CenterUS GUIDED BIOPSY LYMPH NODE SUPERFICIALon 74-56-4849HF GUIDED BIOPSY LYMPH NODE SUPERFICIALInterpreted By: Gaby Perez and Guirguis James STUDY: US GUIDED BIOPSY LYMPH NODE SUPERFICIAL; 06/05/2024 1:53 pm INDICATION: Signs/Symptoms:left neck enlarged lymph node seen on PET. COMPARISON: PET-CT dated 03/27/2024 ACCESSION NUMBER(S): [id number] ORDERING CLINICIAN: MARY LY TECHNIQUE: INTERVENTIONALIST(S): MD [...] intravenous fentanyl 50mcg and versed 0.5mg from 2687-8907. The physician was assisted by an independent [...] findings as stated. Performed and dictated at [facility]. MACRO: None. Signed by: Gaby Perez 06/05/2024 9:02 PM Dictation workstation: [id number] Campus Medical CenterUS guidance for percutaneous biopsy of [...] findings as stated. Performed and dictated at [facility]. MACRO: None. Signed by: Gaby Perez 06/05/2024 9:02 PM Dictation workstation: [id number] By: Gaby Perez and Guirguis James STUDY: US GUIDED BIOPSY LYMPH NODE SUPERFICIAL; 06/05/2024 1:53 pm INDICATION: Signs/Symptoms:left neck enlarged lymph node seen on PET. COMPARISON: PET-CT dated 03/27/2024 ACCESSION NUMBER(S): [id number] ORDERING CLINICIAN: MARY LY TECHNIQUE: INTERVENTIONALIST(S): MD [...] intravenous fentanyl 50mcg and versed 0.5mg from 8367-6294. The physician was assisted by an independent [...] PET. COMPARISON: PET-CT dated 03/27/2024 ACCESSION NUMBER(S): [id number] ORDERING CLINICIAN: MARY LY TECHNIQUE: INTERVENTIONALIST(S): MD [...] intravenous fentanyl 50mcg and versed 0.5mg from 4693-7234. The physician was assisted by an independent [...] findings as stated. Performed and dictated at [facility]. MACRO: None. Signed by: Gaby Perez 06/05/2024 9:02 PM Dictation workstation: [id number] [facility] Work Phone: Radiology Study observation (narrative)[facility] Work Phone: US guidance for percutaneous biopsy of Lymph node Ordered By: Gaby Perez on 87-18-7955FjhckwbfixTrumbull Regional Medical Center Work Phone: nm TRANSFER OF OUTSIDE FILMSon 66-63-5169CV TRANSFER OF OUTSIDE FILMSOutside images for comparison or treatment purposes, not interpreted by Radiologists.NormalUnWVUMedicine Barnesville Hospitaltudy Interpretation of outside studyon 49-00-6910Bamgdyw images for comparison or treatment purposes, not interpreted by Radiologists.IMAGINGBlood type and Indirect antibody screen panel (Bld)on 97-55-0209TMH group Nom (Bld)AUnTrumbull Regional Medical CenterBlood group antibody screen QlNegativeUnTrumbull Regional Medical CenterD Ag Ql (Bld)Positive [facility] CampusUnTrumbull Regional Medical CenterABO group Nom (Bld)ANormThe Surgical Hospital at SouthwoodsComment on above:Order Comment: Patient admitted for surgery associated with significant blood loss OR per blood bank request.Performed By: #### 67548-9 #### TING Knox ([id number]) [facility] ([facility]) [address] [place], [place] [address]Msbmi group antibody screen QlNegativeNoMain Campus Medical CenterComment on above:Order Comment: Patient admitted for surgery associated with significant blood loss OR per blood bank request.Performed By: #### 84252-3 #### TING Knox (78295) [facility] ([facility]) [address] [place], [place] [address]V Ag Ql (Bld)PositiveNoMain Campus Medical CenterComment on above:Order Comment: Patient admitted for surgery associated with significant blood loss OR per blood bank request.Performed By: #### 86153-0 #### TING Knox ([id number]) [facility] ([facility]) [address] [place] [address]Gxzphvg Test strip manual (Bld) [Mass/Vol]on 05-11-2024 Glucose [Mass/Vol]128 mg/hLBxkr58 - 99 mg/dLUnTrumbull Regional Medical Center Interpretation and review of laboratory resultsAbWyandot Memorial HospitalGlucose [Mass/Vol]128 mg/jNQvsc65-56 [facility] HospitalComment on above:Performed By: #### 2341-6 #### TING Knox (47022) [facility] ([facility]) [address] [place] [address]Kvonjfe [Mass/Vol]120 mg/gUZslz67 - 99 mg/dLUnTrumbull Regional Medical CenterComment on above:RN NOTIFIEDInterpretation and review of laboratory resultsAbWyandot Memorial HospitalGlucose [Mass/Vol]120 mg/zLKfki85-41KyvlisbqjlMiami Valley HospitalComment on above:Result Comment: RN NOTIFIEDPerformed By: #### 2341-6 #### TING Knox ([id number]) [facility] ([facility]) [address] [place] [address]Pbaipxah pathology studyon 14-90-7956Evjtndyp pathology study Pathology report.total SEE COMMENT Surgical Pathology Case: [id number] Authorizing Provider: Mary Ly MD Collected: 05/11/2024801 Ordering Location: [facility] Received: 05/11/[address] [place] [address] OR Pathologist: Asuncion Quintanilla MD PhD Intraop: [...] specimenis submitted in toto in one cassette. [facility] AP INTRAOPERATIVE CONSULTATION SEE COMMENT A. [...] invasion. Intraoperative Consult Pathologist(s): Carmel Patel MD sales and service consultant: Dr. Alessandro Arzate. LAB AP ASR DISCLAIMER One or more of the reagents used to perform assays on this specimen MAY have contained components considered to be analyte specific reagents (ASR's). ASR's have not been cleared or approved by the U.S. Food and Drug Administration. These assays were developed and their performance characteristics determined by the Department of Pathology at [facility]. The FDA does not require this test to go through premarket FDA review. This test is used for clinical purposes. It should not be regarded as investigational or for research. This laboratory is certified under the Clinical Laboratory Improvement Amendments (CLIA) as qualified to perform high complexity clinical laboratory testing. 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]VERAB/VERIFY ABORHon 61-94-4639KOB group Nom (Bld)ANoMain Campus Medical CenterComment on above:Performed By: #### VERAB #### TING Knox (39857) [facility] ([facility]) [address] [place], [place] [address]G Ag Ql (Bld)PositiveNoMain Campus Medical CenterComment on above:Performed By: #### VERAB #### TING VIEIRA L (59653) [facility] ([facility]) [address] [place], [place] [address]Liqrjo ABO/Rh Group Test (VERAB)on 48-35-0972PLN group Nom (Bld)AUnAkron [facility] Hospital Ag Ql (Bld)PositiveUnTrumbull Regional Medical CenterUnTrumbull Regional Medical CenterOffice Visiton 05-44-0221Hcyhkk-up [id number] Jeremie Bennett 1940 M Date Provider Department Center 04/25/2024 AbimaelSTACEY PATEL GILA [facility] Family History Problem Relation Age of Onset Coronary artery disease Mother Kidney disease Mother Heart failure Mother Family Status - Relation Status Age at Mother Level of Service:[address] [place] OFFICE/OUTPATIENT NEW MODERATE MDM 45 MINUTESNormal [place] [facility] HospitalAmbulatory Visit Summaryon 04-17-2024 Ambulatory Visit SummaryAmbulatory Visit Summary JEREMIE BENNETT :1940 Visit Date:04/17/2024 Ambulatory Visit Instructions Your Diagnosis Type 2 diabetes mellitus with hypercholesterolemia BMI 30.0-30.9,adult Exogenous obesity Former smoker Chronic GERD Coronary artery disease involving [place] coronary artery of [place] heart without angina pectoris Hypercholesterolemia Primary hypertension [...] Tab) fluticasone nasal (fluticasone Nasal 0.05 mg/inh Chauvin) furosemide (furosemide 20 mg Tab) irbesartan (irbesartan [...] Wednesday 2:30 PM EDT With: Where: [address] [address]- Wednesday 3:30 PM EDT With: Hermes CASON, Demetrius Rosa Where: [address] [address]- Medications What How Much When Instructions Unchanged [...] fluticasone nasal (fluticasone Nasal 0.05 mg/ inh Chauvin) See instructions USE 1 SPRAY IN BOTH [...] By Mouth Every day Unchanged Misc Prescription ([facility] Prescription) See instructions one touch ultra test strips test sugars once a day Unchanged Misc Prescription ([facility] Prescription) See instructions one touch ultra lancets Use totest sugars once a day Unchanged multivitamin with minerals (Multivitamin, Therapeutic w/ Minerals) By Mouth Every day Unchanged Non-Formulary Medication ([facility] Medication) Transdermal Therapeutics up to four times [...] you are currently receivin (more content not included)...NormalSt. [facility] w/ Auto Diffon 04-17-2024 Basophils/100 WBC (Bld)0.8 %Normal0.0-2.0Lutheran HospitalComment on above:Performed By: #### [id number] #### [facility] [address], [place] [address]Cndwerjih/Leukocytes Auto (Bld) [Pure # fraction]0.1 E9/LNormal 0.0-0.2FSt. Charles HospitalComment on above:Performed By: #### [id number] #### [facility] [address], [place] [address]Kcpmdyptskd (Bld) [#/Vol]0.4 E9/LNormal0.0-0.5FSt. Charles HospitalComment on above:Performed By: #### [id number] #### [facility] [address] [place] [address]Iqmngpbgrwf/100 WBC (Bld)4.6 %Normal0.0-8.0Lutheran HospitalComment on above:Performed By: #### [id number] #### [facility] [address] [place] [address]Odrdmggirte distribution width (RBC) [Ratio]14.0 %Normal 10.9-14.2FSt. Charles HospitalComment on above:Performed By: #### [id number] #### [facility] [address] [place] [address]Iydiooqmqj (Bld) [Volume fraction]43.7 %Rkxzgw32.7-49.0Lutheran HospitalComment on above:Performed By: #### [id number] #### [facility] [address] [place] [address]Pdlwmagmtv (Bld) [Mass/Vol]14.5 g/xCYrptad33.5-17.5FSt. Charles HospitalComment on above:Performed By: #### [id number] #### [facility] [address] [place] [address]Bshampsleqt (Bld) [#/Vol]2.0 E9/LNormal1.0-4.0Lutheran HospitalComment on above:Performed By: #### [id number] #### [facility] [address] [place] [address]25[address]Nvwxuiwapqo/100 WBC (Bld)22.4 %Rymunh64.0-50.0Lutheran HospitalComment on above:Performed By: #### [id number] #### [facility] [address] [place] [address] 413[address]BLG (RBC) [Entitic mass]31.2 uhRcqyiy91.0-34.0Lutheran HospitalComment on above:Performed By: #### [id number] #### [facility] [address], [place] [address]OOQI (RBC) [Mass/Vol]33.2 g/tHBpsnav74.4-36.0Lutheran HospitalComment on above:Performed By: #### [id number] #### [facility] [address] [place] [address]NLX (RBC) [Entitic vol]94.2 tXVctukh93.0-100.0Lutheran HospitalComment on above:Performed By: #### [id number] #### [facility] [address] [place] [address] 300[address]Tfafkyhke (Bld) [#/Vol]0.7 E9/LNormal0.2-1.0Lutheran HospitalComment on above:Performed By: #### [id number] #### [facility] [address] [place] [address] 266[address]Sboxsqrbswi (Bld) [#/Vol]5.7 E9/LNormal2.0-7.5FSt. Charles HospitalComment on above:Performed By: #### [id number] #### [facility] [address] [place] [address] 225[address]Pfgdrewhgaj/100 WBC (Bld)64.7 %Lzlqdl88.0-75.0Lutheran HospitalComment on above:Performed By: #### [id number] #### [facility] [address] [place] [address]Hwxgljxy mean volume (Bld) [Entitic vol]9.2 fLNormal6.4-10.8 Lutheran HospitalComment on above:Performed By: #### [id number] #### [facility] [address] [place] [address] 264[address]Gxtfmqhir (Bld) [#/Vol]243.0 E9/TOzwgde536.0-500.0Lutheran HospitalComment on above:Performed By: #### [id number] #### [facility] [address] [place] [address]CGX (Bld) [#/Vol]4.6 E12/LNormal4.3-5.9Lutheran HospitalComment on above:Performed By: #### [id number] #### [facility] [address], [place] [address]NUZ corrected for nucl RBC Auto (Bld) [#/Vol]8.9 E9/LNormal 4.0-11.0Lutheran HospitalComment on above:Performed By: #### [id number] #### [facility] [address], [place] [address]QKSAJZTORJyiiahr By: SYSTEM SYSTEM on 51-30-2776Tchkmwg [Mass/Vol]4.3 g/dLNormal3.3 - 5.0 gm/dLRemisol ChemAlbumin DL <= 20 mg/L (U) [Mass/Vol]0.7 mg/dLNormal0.0 - 1.9 mg/dLRemisol ChemAlbumin/Globulin [Mass ratio]1.7 {ratio}Normal1.1 - 2.2Remisol ChemALP [Catalytic activity/Vol]82 [iU]/oHxwail66 - 98 Int._Unit/LRemisol ChemALT No additional P-5'-P [Catalytic activity/Vol]17 [iU]/dNormal6 - 46 Int._Unit/LRemisol ChemAnion gap [Moles/Vol] 10 mmol/LNormal6 - 16 mEq/LRemisol ChemAST [Catalytic activity/Vol]18 [iU]/d Normal5 - 43 Int._Unit/LRemisol ChemBilirubin [Mass/Vol]0.6 mg/dLNormal0.0 - 1.1 mg/dLRemisol ChemCalcium [Mass/Vol]9.7 mg/dLNormal8.9 - 11.1 mg/dLRemisol Chem Chloride [Moles/Vol]108 mmol/EJnytal223 - 111 mmol/LRemisol ChemCO2 [Moles/Vol] 27 mmol/VJemqqd35 - 31 mmol/LRemisol ChemCreatinine [Mass/Vol]1.0 mg/dLNormal0.5 - 1.3 mg/dLRemisol AxcalIPV45 mL/min/1.73 y4Szpktw>=59mL/min/1.73 m4Hzleopg ChemGlobulin (S) [Mass/Vol]2.5 g/dLNormal1.4 - 4.0 gm/dLRemisol ChemGlucose [Mass/Vol]145 mg/kGSbchxt77 - 199 mg/dLRemisol ChemPotassium [Moles/Vol]4.2 mmol/LNormal3.5 - 5.3 mmol/LRemisol ChemProtein [Mass/Vol]6.8 g/dLNormal6.0 - 7.8 gm/dLRemisol ChemSodium [Moles/Vol]141 mmol/RWslarv901 - 145 mmol/LRemisol ChemUrea nitrogen [Mass/Vol]22 mg/dLHigh5 - 21 mg/dLRemisol ChemUrea nitrogen/Creatinine [Mass ratio]22 mg/jwDxlx26 - 20Remisol ChemCHEMISTRYOrdered By: Isabel Cuellar on 37-29-9405ZpP5i (Bld) [Mass fraction]6.5 %High<=5.9%[facility] ChemAutoSSCMPon 63-31-8139Hluksta [Mass/Vol]4.3 g/dLNormal3.3-5.0Lutheran HospitalComment on above:Performed By: #### [id number] #### [facility] [address], [place] [address]Gvwlrap/Globulin (S) [Mass conc ratio]1.6Qgawpf2.1-2.2FSt. Charles HospitalComment on above:Performed By: #### [id number] #### [facility] [address], [place] [address]IBO [Catalytic activity/Vol]82 Int._Unit/SOgjzxr92-45YurmhlLutheran HospitalComment on above:Performed By: #### [id number] #### [facility] [address], [place] [address]JYP No additional P-5'-P [Catalytic activity/Vol]17 Int._Unit/L Normal6-46Lutheran HospitalComment on above:Performed By: #### [id number] #### [facility] [address], [place] [address]Ljywn gap [Moles/Vol]10 mmol/LNormal6-16Lutheran HospitalComment on above:Performed By: #### [id number] #### [facility] [address], [place] [address]CXG [Catalytic activity/Vol]18 Int._Unit/LNormal5-43Lutheran HospitalComment on above:Performed By: #### [id number] #### [facility] [address], [place] [address]Wgjpfriek [Mass/Vol]0.6 mg/dLNormal0.0-1.1FSt. Charles HospitalComment on above:Performed By: #### [id number] #### [facility] [address], [place] [address]Lpodzsn [Mass/Vol]9.7 mg/dLNormal8.9-11.1FSt. Charles HospitalComment on above:Performed By: #### [id number] #### [facility] [address], [place] [address]Fyljehnu [Moles/Vol]108 mmol/HWnskks649-406FaridaLutheran HospitalComment on above:Performed By: #### [id number] #### [facility] [address], [place] [address]YM3 [Moles/Vol]27 mmol/PBunwjp58-72KerhxjLutheran Hospital Comment on above:Performed By: #### [id number] #### [facility] [address], [place] [address]Dlxyfsdnkj [Mass/Vol]1.0 mg/dLNormal0.5-1.3FSt. Charles HospitalComment on above:Performed By: #### [id number] #### [facility] [address], [place] [address]Mtlbrgnu (S) [Mass/Vol]2.5 g/dLNormal1.4-4.0Lutheran HospitalComment on above:Performed By: #### [id number] #### [facility] [address], [place] [address]Lqwbnfp [Mass/Vol]145 mg/uWWdzllb39-862UwbhktLutheran HospitalComment on above:Performed By: #### [id number] #### [facility] [address], [place] [address]Vvphvocfg [Moles/Vol]4.2 mmol/LNormal3.5-5.3FSt. Charles HospitalComment on above:Performed By: #### [id number] #### [facility] [address], [place] [address]Zhqmkbw [Mass/Vol]6.8 g/dLNormal6.0-7.8Lutheran HospitalComment on above:Performed By: #### [id number] #### [facility] [address], [place] [address]Esdrpr [Moles/Vol]141 mmol/HBfzjhv774-210SfaukjLutheran HospitalComment on above:Performed By: #### [id number] #### [facility] [address], [place] [address]Vcbl nitrogen [Mass/Vol]22 mg/dLHigh5-21Lutheran HospitalComment on above:Performed By: #### [id number] #### [facility] [address], [place] [address]Zeco nitrogen/Creatinine [Mass ratio]22 No GkgayYsga99-99YpuoycLutheran HospitalComment on above:Performed By: #### [id number] #### [facility] [address], [place] [address]Gbfsdq Medicine Office/Clinic Noteon 14-24-4854Dwmuxd Medicine Office/Clinic NoteFagaebler children's center Medicine Office/Clinic Note HPI Staff Jeremie is an 83 year old male presenting for follow up DM Do you have any of the following symptoms? Foot Exam: foot dr MARIE Eye Exam: has one in Apr. one earlier in the year for the glaucome Last A1C: Hgb A1c POC: 6.1 % (04/15/24 10:26:00) Statin: rosuvastatin 10mg would like a [...] a referral to Dr. Marlene Ly in [place] for further evaluation. The patient has a [...] or previously received 4274F Lab Specimen Collect 90188 Microalbumin Level Urine Most recent diastolic blood [...] or previously received 4274F Lab Specimen Collect 28779 Microalbumin Level Urine Most recent diastolic blood [...] or previously received 4274F Lab Specimen Collect 28557 Microalbumin Level Urine Most recent diastolic blood pressure <80 mm Hg 3078F Patient screen for fall risk: no falls in last year or 1 fall with no injury in last year 1101F Systolic BP <130 mm Hg (Most Recent) 3074F 4. Former smoker (Z87.891: Personal history of nicotine dependence) Please continue not to smoke. Ordered: influe (more content not included)...[facility]UMedicine Barnesville HospitalComment on above:Result Comment: Electronically Signed By: Hermes CASON, Demetrius Munroe\Date and Time Signed: 04/17/24 12:20 ESTHEMATOLOGYOrdered By: SYSTEM SYSTEM on 48-43-6814Rowsyyfwe/100 WBC (Bld)0.8 %Normal0.0 - 2.0 %Remisol Heme Basophils/Leukocytes Auto (Bld) [Pure # fraction]0.1 E9/LNormal0.0 - 0.2 E9/L Remisol HemeEosinophils (Bld) [#/Vol]0.4 E9/LNormal0.0 - 0.5 E9/LRemisol Heme Eosinophils/100 WBC (Bld)4.6 %Normal0.0 - 8.0 %Remisol HemeErythrocyte distribution width (RBC) [Ratio]14.0 %Flqtjq47.9 - 14.2 %Remisol HemeHematocrit (Bld) [Volume fraction]43.7 %Erlgqk37.7 - 49.0 %Remisol HemeHemoglobin (Bld) [Mass/Vol]14.5 g/xVDcfqzz80.5 - 17.5 gm/dLRemisol HemeLymphocytes (Bld) [#/Vol] 2.0 E9/LNormal1.0 - 4.0 E9/LRemisol HemeLymphocytes/100 WBC (Bld)22.4 %Normal 14.0 - 50.0 %Remisol HemeMCH (RBC) [Entitic mass]31.2 brTiyznb82.0 - 34.0 pg Remisol HemeMCHC (RBC) [Mass/Vol]33.2 g/uPQrkgrj67.4 - 36.0 gm/dLRemisol HemeMCV (RBC) [Entitic vol]94.2 dJVoplui73.0 - 100.0 fLRemisol HemeMonocytes (Bld) [#/Vol]0.7 E9/LNormal0.2 - 1.0 E9/LRemisol HemeMonocytes/100 WBC (Bld)7.5 % Normal4.0 - 14.0 %Remisol HemeNeutrophils (Bld) [#/Vol]5.7 E9/LNormal2.0 - 7.5 E9/LRemisol HemeNeutrophils/100 WBC (Bld)64.7 %Ojkanp83.0 - 75.0 %Remisol Heme Platelet mean volume (Bld) [Entitic vol]9.2 fLNormal6.4 - 10.8 fLRemisol Heme Platelets (Bld) [#/Vol]243.0 E9/KJwldlr446.0 - 500.0 E9/LRemisol HemeRBC (Bld) [#/Vol]4.6 E12/LNormal4.3 - 5.9 E12/LRemisol HemeWBC corrected for nucl RBC Auto (Bld) [#/Vol]8.9 E9/LNormal4.0 - 11.0 E9/LRemisol FqrjYzrU7mei 95-45-9465LvY9t (Bld) [Mass fraction]6.5 %High<=5.9Lutheran HospitalComment on above: Performed By: #### [id number] #### [facility] [address], [place] [address]L Microalbon 11-70-9641Rsoezvg DL <= 20 mg/L (U) [Mass/Vol]0.7 mg/dLNormal0.0-1.9Lutheran HospitalComment on above:Performed By: #### [id number] #### [facility] [address], [place] [address]pDBEvq 31-76-2983cXVL78 mL/min/1.73 a4Pnvonu>=59Lutheran HospitalComment on above:Performed By: #### [id number] #### [facility] [address], [place] [address]Kaljg metabolic 2000 panelon 34-46-4387Tzaiz gap [Moles/Vol]15 mmol/QMmwfrw63-84MplyoexclhTrihealth Bethesda Butler HospitalComment on above: Performed By: #### 87772-6 #### TING Knox (91310) [facility] ([facility]) [address] [place], [place] [address]Xxbzeil [Mass/Vol]9.9 mg/dLNormal8.6-10.6[facility]hes[facility] Butler HospitalComment on above:Performed By: #### 79202-0 #### TING Knox (52173) [facility] ([facility]) [address] [place], [place] [address]Bcaaenvr [Moles/Vol]107 mmol/JWlxgaa73-455ItbdhetkveMiami Valley HospitalComment on above:Performed By: #### 37652-8 #### TING Knox (22667) [facility] ([facility]) [address] [place] [address]XX3 [Moles/Vol]25 mmol/QNkctub84-28PugstdnrwmMiami Valley HospitalComment on above:Performed By: #### 41344-1 #### TING Knox (18829) [facility] ([facility]) [address] [place] [address]Mulakyzjsf [Mass/Vol]0.96 mg/dLNormal0.50-1.30[facility]hes[facility] Butler HospitalComment on above:Performed By: #### 51015-8 #### TING Knox (02944) [facility] ([facility]) [address] [place] [address]Telvgbmlvs filtration rate/1.73 sq M.zfawndqey60 mL/min/1.73m*2Normal>60UnMiami Valley HospitalComment on above:Result Comment: Calculations of estimated GFR are performed using the 2020 CKD-EPI Study Refit equation without the race variable for the IDMS-Traceable creatinine methods. https://jasn.asnjournals.org/content/early/ASN.6696374639Nhjlmyjpm By: #### 60045-7 #### TING Knox (75091) [facility] ([facility]) [address] [place], [place] [address]Fljkkag [Mass/Vol]109 mg/pFNkvh51-88GwtotgyxjdMiami Valley HospitalComment on above:Performed By: #### 99762-2 #### TING Knox (64205) [facility] ([facility]) [address] [place] [address]Dfkfciqrf [Moles/Vol]4.5 mmol/LNormal3.5-5.3UnMiami Valley HospitalComment on above:Performed By: #### 07543-3 #### TING Knox (89923) [facility] ([facility]) [address] [place] [address]Tmwlgm [Moles/Vol]142 mmol/IYdmhko328-413PiytkgraiyMiami Valley HospitalComment on above:Performed By: #### 70566-4 #### TING Knox (52890) [facility] ([facility]) [address] [place] [address]Yrdp nitrogen [Mass/Vol]18 mg/dLNormal6-23UnMiami Valley HospitalComment on above:Performed By: #### 30150-8 #### TING Knox (90625) [facility] ([facility]) [address] [place] [address]JFH panel Auto (Bld)on 48-62-6818Qdygwrfhrtp distribution width (RBC) [Ratio]13.3 %Riimkm65.5-14.5UnMiami Valley HospitalComment on above:Performed By: #### 97073-7 #### TING Knox (18121) [facility] ([facility]) [address] [place] [address]Bgcjzcmrkc (Bld) [Volume fraction]45.5 %Hudtcu49.0-52.0 [facility] Butler HospitalComment on above:Performed By: #### 94834-0 #### TING Knox (33620) [facility] ([facility]) [address] [place] [address]Seddvusuhw (Bld) [Mass/Vol]14.5 g/eFRgjran50.5-17.5[facility] Butler HospitalComment on above:Performed By: #### 31862-6 #### TING Knox (02930) [facility] ([facility]) [address] [place], [place] [address]NJI (RBC) [Entitic mass]30.1 rcDyibzh95.0-34.0UnMiami Valley HospitalComment on above:Performed By: #### 17735-2 #### TING Knox (34228) [facility] ([facility]) [address] [place], [place] [address]OVRH (RBC) [Mass/Vol]31.9 g/dLLow32.0-36.0UnMiami Valley HospitalComment on above:Performed By: #### 74883-4 #### TING Knox (05043) [facility] ([facility]) [address] [place] [address]NYU (RBC) [Entitic vol]94 tIRywxja82-305EwfhpizgpeMiami Valley HospitalComment on above:Performed By: #### 16921-6 #### TING Knox (93260) [facility] ([facility]) [address] [place], [place] [address]Oyhvseuan RBC/100 WBC (Bld) [Ratio]0.0 /100 WBCsNormal0.0-0.0 [facility] Butler HospitalComment on above:Performed By: #### 90696-6 #### TING Knox (20991) [facility] ([facility]) [address] [place], [place] [address]Kdcbddqqc (Bld) [#/Vol]254 x10*3/sAJdnswp695-682CedbhrjihcMiami Valley HospitalComment on above:Performed By: #### 74911-5 #### TING Knox (26211) [facility] ([facility]) [address] [place] [address]JLR (Bld) [#/Vol]4.82 x10*6/uLNormal4.50-5.90UnTexas Health Harris Methodist Hospital Cleburneveland Medical CenterComment on above:Performed By: #### 85780-3 #### TING Knox (96255) [facility] ([facility]) [address] [place], [place] [address]JTZ (Bld) [#/Vol]8.5 x10*3/uLNormal4.4-11.3[facility] Butler HospitalComment on above:Performed By: #### 81476-8 #### TING Knxo (79610) [facility] ([facility]) [address] [place], [place] [address]Aitsittt pathology studyon 3656Sscchcqc pathology study Pathology report.total SEE COMMENT Surgical Pathology Case: [id number] Authorizing Provider: Mary Ly MD Collected: 04/07/2024 1137 Ordering Location: [place] [...] PAS is negative for heart fungal organisms. sales and service consultant: Dr. Jose Leary. Laboratory comment By [...] is submitted in toto in one cassette. [facility] Rita's HospitalGLUCOSE, BLOOD (POC)on 73-10-9968Ktyqpvm [Mass/Vol]113 mg/yFMphsjfkd59 - 99 mg/dLLakehealth Beachwood Medical Center Comment on above:Location:[facility], [address] [place] [address] , [place], [place], [address] The Accu-Chek Inform II glucose meter has [...] above situations. Interpretation and review of laboratory resultsAbnormalCProMedica Flower Hospital PET/CT SKULL-THIGH INITon 99-98-0016MR PET/CT SKULL-THIGH INIT* * *Final Report* * [...] * Uptake Time: 61 minutes * Radiopharmaceutical: O23-Fyneaqgaaikqvnstls (FDG) COMPARISON: No previous FDG PET/CT available [...] the care of you (more content not included)...NormalNorwalk Memorial Hospitalulatory Visit Summaryon 05-36-7055Puwcamyqct Visit SummaryAmbulatory Visit Summary JEREMIE BENNETT :1940 Visit Date:03/23/2024 Ambulatory Visit Instructions Your Diagnosis Pancreatic cyst RUQ pain Bloating Chronic GERD History of colon polyps Your Care Team Attending Physician - Beatriz CASON, Inez Funes Primary Care Physician - Hermes CASON, Demetrius Johnson. This Is Your Medications List Contact prescribing [...] Tab) fluticasone nasal (fluticasone Nasal 0.05 mg/inh [place]) furosemide (furosemide 20 mg Tab) irbesartan (irbesartan [...] EST With: Hermes CASON, Demetrius Rosa Where: [address] [id number]- Wednesday 2:30 PM EDT With: Where: [address] [address]- Medications What How Much When Instructions Unchanged [...] fluticasone nasal (fluticasone Nasal 0.05 mg/ inh [place]) See instructions USE 1 SPRAY IN BOTH [...] Non-Formulary Medication (Misc Medication (more content not included)...[facility] HospitalGastroenterology Office/Clinic Note on 86-90-8865Zlwgzvzyzbexsdzt Office/Clinic NoteGastroenterology Office/Clinic Note Chief Complaint 5 [...] sidebranch IPMN- 04/[address] Aguilar @ [facility] Repeat MRCP 02/2024 2. RUQ pain [...] Salomón Villarreal Lymph node bx 02/29/24 @ [facility]: A, right cervical lymph node, [...] spondylosis Chronic GERD Coronary artery disease involving [place] coronary artery of [place] heart without angina pectoris Diabetic autonomic neuropathy [...] Angioplasty, Cardiac pacemaker proced (more content not included)...[facility] Comment on above:Result Comment: Electronically Signed By: Beatriz CASON, Inez Funes\.br\Date and Time Signed: 03/23/24 14:49 ESTLon 71-30-9961JEqzopfjb: [id number] Received: 02/29/24 Status: LISA Kirby Num: [id number] Spec Type: Surgical Subm Dr: LUC HAM [...] Account Attending Physician Jeremie Bennett 83/M LABELL [id number] LUC HAM MD SPEC NUM: [id number] RECD: 02/29/24 STATUS: LISA KIRBY NUM: [id number] DONTRELL: 02/29/24- SUBM DR: LUC HAM MD ENTERED: 02/29/[address] [facility] [address]: Myra Will SPEC TYPE: Surgical DEPT: MANNY MONTEZ ENTERED BY: [id number] RECV BY: [id number] ORDERED: S 100, Mucicarmine, HE/6, Gross/Micro L4/2, [...] Signed (signature on file) Tae Sanchez MD 03/04/248 Pathological Diagnosis A, right cervical lymph node, core biopsy: -Positive for metastatic carcinoma, 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 Note: Specimen: [id number] Received: 02/29/24 Status: LISA Kirby Num: [id number] Spec Type: Surgical Subm Dr: LUC HAM MD Tissues: A Lymph Node - Biopsy (Needle or Incisional) (RT CERVICAL LYMPH NODE) B Lymph Node - Biopsy (Needle or Incisional) (RT CERVICAL LYMPH NODE-SALIN) Procedures: S 100, Mucicarmine, HE/6, Gross/Micro L4/2, CK5 6, CK20, CK 7, NAPSIN A, CINtec p16, TTF1, NKX3.1, MOC31, GATA3, p40, DIFF QWIK Patient: Jeremie Bennett [id number] (Continued) Specimen: [id number] Received: 02/29/24 (Continued) Pathological Diagnosis (Continued) Signed (signature on file) Tae Sanchez MD 03/04/24 1033 Specimen: [id number] Received: 02/29/24 Status: LISA Davidsondenise Num: [id number] Spec Type: Surgical Subm Dr: LUC HAM MD Tissues: A Lymph Node - Biopsy (Needle or Incisional) (RT CERVICAL LYMPH NODE) B Lymph Node - Biopsy (Needle or Incisional) (RT CERVICAL LYMPH NODE-SALIN) Procedures: S 100, Mucicarmine, HE/6, Gross/Micro L4/2, CK5 6, CK20, CK 7, NAPSIN A, CINtec p16, TTF1, NKX3.1, MOC31, GATA3, p40, DIFF QWIK Patient: Jeremie Bennett [id number] (Continued) Specimen: [id number] Received: 02/29/24-151 (Continued) Pathological Diagnosis (Continued) -The [...] for flow c (more content not included)...NormalThe [facility] Physician GroupUS BIOPSY LYMPH NODEon 72-05-0173[place], [place] [address] Ultrasound Report Signed Patient: JEREMIE BENNETT MR#: [id number] : 1940 Acct:[id number] Age/Sex: 83 / M ADM Date: 02/29/24 Loc: US Attending Dr: Luc Ham M.D. Ordering Physician: Luc Ham M.D. Date of Service: 02/29/24 Procedure(s): US biopsy lymph node Accession Number(s): [id number] cc: DEMETRIUS COOPER ; Luc Ham M.D. The [address] [address] Patient Name: JEREMIE BENNETT MRN: [id number] date: 1940 Sex: M Assigned Patient Location: US Current Patient Location: Accession/Order Number: [id number] Exam Date: 02/29/2024 08:55 Report Date: 02/29/2024 [...] Signed By: 02/29/24 1254 DD/ 1252 TD/TT: Home Health Care Provider:TBHRadiology, Radiologist, MD - 02/29/[address] [address] Ultrasound Report Signed Patient: JEREMIE BENNETT MR#: [id number] : 1940 Acct:[id number] Age/Sex: 83 / M ADM Date: 02/29/24 Loc: US Attending Dr: Luc Ham M.D. Ordering Physician: Luc Ham M.D. Date of Service: 02/29/24 Procedure(s): US biopsy lymph node Accession Number(s): [id number] cc: DEMETRIUS COOPER ; Luc Ham M.D. [place] [id number] Patient Name: JEREMIE BENNETT MRN: [id number] date: 1940 Sex: M Assigned Patient Location: US Current Patient Location: Accession/Order Number: [id number] Exam Date: 02/29/2024 08:55 Report Date: 02/29/2024 [...] Signed By: 02/29/24 1254 DD/ 1252 TD/TT: Home Health Care Provider: VALENTÍ[facility] HealthcareRadiology Study observation (narrative)[facility] HealthcareUS BIOPSY LYMPH NODEOrdered By: Radiologist Radiology on 94-51-2432HNMB [employer] Work Phone: cT SOFT TISSUE NECK W IV CONTRASTon 33-35-9725HK SOFT TISSUE NECK W IV CONTRASTTITLE OF [...] above:Order Comment: CT S/T Neck W at [facility]. Please call patient to schedule.Itz [phone] Telephone ([facility]) JEREMIE BENNETT ([id number]) 1940 M Date Time Provider Department 02/02/24 VAISHALI PRINGLE [facility] During your visit today, we recorded [...] and it was completed in 12/2023 at [facility]. Our office will request results for Dr. Pringle's review. Follow up will be determined upon Dr. Pringle's review of results. Carlitos Beckman 02/04/2024 9:19 AM Signed Surveillance imaging completed at OSH for IPMN surveillance. Carlitos Beckman 02/07/2024 9:31 AM Signed IPMN surveillance. 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 - omeprazole (PRILOSEC) 40 mg capsule Take [...] (None) Encounter Status:Closed by CARLITOS BECKMAN on 02/18/24NoNorwalk Memorial HospitalAmbulatory Visit Summaryon 94-22-3582Gctrzxyvwd Visit SummaryAmbulatory Visit Summary JEREMIE BENNETT :1940 [...] Tab) fluticasone nasal (fluticasone Nasal 0.05 mg/inh [place]auvin) furosemide (furosemide 20 mg Tab) irbesartan (irbesartan [...] EST With: Beatriz CASON, Inez Funes Where: [facility] [address] [place], [place] [address] [address]- Wednesday 10:00 AM EST With: Hermes CASON, Demetrius Rosa Where: [address] [address]- Wednesday 2:30 PM EDT With: Where: [address] [address]- Medications What How Much When [...] fluticasone nasal (fluticasone Nasal 0.05 mg/ inh [place]vin) See instructions USE 1 SPRAY IN BOTH [...] DME Prescription) See instructions (more content not included)...[facility] Medicine Office/Clinic Noteon 51-25-3909Nswdqy Medicine Office/Clinic NoteFagaebler children's center Medicine Office/Clinic Note HPI Staff Jeremie [...] BID, # 20 cap(s), Refills(s) 0, Pharmacy: [id number], 160, cm, 01/10/24 9:43:00 EDT, Height/Length Dosing, 77.8, kg, 01/10/24 9:43:00 EDT, Weight Dosing Follow-up No qualifying data available Problem List/Past Medical History Ongoing BMI 29.0-29.9,adult Cervical lymphadenopathy Cervical spondylosis Chronic GERD Coronary artery disease involving [place] coronary artery of [place] heart without angina pectoris Diabetic autonomic neuropathy [...] PRN, 1 refills fluticasone Nasal 0.05 mg/inh [place]auvin, See Instructions furosemide 20 mg Tab, 20 [...] change: No. Household alcohol concerns: No., 11/08/2023 [facility] (more content not included)...[facility] HospitalComment on above:Result Comment: Electronically Signed By: [...] mg Tab) fluticasone nasal (Flonase 0.05 mg/inh [place]) furosemide (furosemide 20 mg Tab) irbesartan (irbesartan [...] Wednesday 8:45 AM EDT With: Hermes CASON, Demetrius Rosa Where: [address] [id number]- 2023 2:45 PM EST With: Beatriz CASON, Inez Funes Where: [facility] [address] [place] [address] Ave [address] [place] [address]- Wednesday 10:00 AM EST With: Demetrius Cooper MD Where: [address] [address]- Wednesday 2:30 PM EDT With: Where: [address] [address]- Medications What How Much When [...] Unchanged fluticasone nasal (Flonase 0.05 mg/ inh [place]) 1 Sprays Nasal Inhalation 2 times a [...] By Mouth Every day Unchanged Misc Prescription ([facility] Prescription) See instructions one touch ultra [...] day Unchanged zonisamide (z (more content not included)...[facility] Medicine Office/Clinic Noteon 97-84-5054Qlfyuu Medicine Office/Clinic NoteFagaebler children's center Medicine Office/Clinic Note HPI Staff Jeremie [...] BID, # 20 cap(s), Refills(s) 0, Pharmacy: [facility] #[id number], 160, cm, 01/10/24 9:43:00 EDT, Height/Length Dosing, 77.8, kg, 01/10/24 9:43:00 EDT, Weight Dosing Follow-up No qualifying data available Problem List/Past Medical History Ongoing BMI 29.0-29.9,adult Cervical lymphadenopathy Cervical spondylosis Chronic GERD Coronary artery disease involving [place] coronary artery of [place] heart without angina pectoris Diabetic autonomic neuropathy [...] q4hr, PRN, 1 refills Flonase 0.05 mg/inh [place], 1 spray(s), Nasal, BID furosemide 20 mg Tab, 20 mg= 1 tab(s), Oral, Daily irbesartan 300 mg Tab, 300 mg= 1 tab(s), Oral, Daily isosorbide mononitrate, 30 mg, Oral, qAM latanoprost Opth 0.005% Janee loperamide 2 mg (more content not included)...[facility] Comment on above:Result Comment: Electronically Signed By: Hermes CASON, Demetrius Branham.marco a\Date and Time Signed: 01/10/24 10:38 EDTCNPNon 10-26-4308WWPDOjugijlrp ([id number]) JEREMIE BENNETT ([id number]) 1940 M Date Time Provider Department 04/05/23 VAISHALI PRINGLE [id number] During your visit today, we recorded the following information about you: Lolly Dumont 04/05/2023 9:55 AM Signed Received records from [facility]. Reports for imaging listed below scanned. Images pushed through 09/27/2019 US Right Upper Quad 03/31/2020 CT ABD/PEL US Right Upper Quad [facility] MRI Abdomen 02/22/2023 US Soft Tissue Head [...] mucinous neoplasm) [D49.0] Order(s):GI TUMOR BOARD - [place] [APPT42] Order #: [id number]: 1 FUTURE Prescriptions as of 04/06/2023 - isosorbide mononitrate ER (IMDUR) 30 mg 24 hr tablet Take 30 mg by mouth. - clopidogrel (PLAVIX) 75 mg tablet - furosemide (LASIX) 20 mg tablet Take 20 mg by mouth. - fluticasone (FLONASE) 50 mcg/actuation nasal spray 1 [place]. - omeprazole (PRILOSEC) 40 mg capsule Take [...] (None) Encounter Status:Closed by LAMONTE COUCH on 04/06/23[facility] 67-57-6149OOCBCxwtzd Visit ([id number]) JEREMIE BENNETT ([id number]) 1940 M Date Time Provider Department 04/01/23 1:00 PM VAISHALI PRINGLE [id number] During your visit today, we recorded the [...] his GI re (more content not included)...Normal [facility] CenterCHEMISTRYOrdered By: SYSTEM SYSTEM on 03-10-2023 Albumin [Mass/Vol]4.0 g/dLNormal3.3 - 5.0 gm/dLFTMC RemisolAlbumin/Globulin [Mass ratio]1.2 {ratio}Normal1.1 - 2.2FTMC RemisolALP [Catalytic activity/Vol]65 [iU]/zEcncek70 - 98 Int._Unit/LFTMC RemisolALT No additional P-5'-P [Catalytic activity/Vol]17 [iU]/dNormal6 - 46 Int._Unit/LFTMC RemisolAnion gap [Moles/Vol] 10 mmol/LNormal6 - 16 mEq/LFTMC RemisolAST [Catalytic activity/Vol]16 [iU]/d Normal5 - 43 Int._Unit/LFTMC RemisolBilirubin [Mass/Vol]0.4 mg/dLNormal0.0 - 1.1 mg/dLFTMC RemisolCalcium [Mass/Vol]9.2 mg/dLNormal8.9 - 11.1 mg/dLFTMC Remisol Chloride [Moles/Vol]108 mmol/LTcevfw437 - 111 mmol/LFTMC RemisolCO2 [Moles/Vol] 25 mmol/XGdhtbu38 - 31 mmol/LFTMC RemisolCreatinine [Mass/Vol]1.1 mg/dLNormal0.5 - 1.3 mg/dLFTMC RemisolGFR/1.73 sq M.predicted among non-blacks MDRD (S/P/Bld) [Vol rate/Area]67 mL/min/1.73 y0Mrpuwc>=59mL/min/1.73 m2FTMC Chem SComment on above:Interpretive Data: Chronic kidney disease could be indicated at eGFR's of less than 60 mL/min/1.73m2. Kidney failure is indicated at less than 15 mL/min/1.73m2.Globulin (S) [Mass/Vol]3.3 g/dLNormal1.4 - 4.0 gm/dLFTMC Remisol Glucose [Mass/Vol]136 mg/uIVcfnek08 - 199 mg/dLFTMC RemisolComment on above: Interpretive Data: If this glucose result represents a fasting glucose, interpretation should referto the following reference range: 55-99 mg/dL Potassium [Moles/Vol]3.9 mmol/LNormal3.5 - 5.3 mmol/LFTMC RemisolProtein [Mass/Vol]7.3 g/dLNormal6.0 - 7.8 gm/dLFTMC RemisolSodium [Moles/Vol]139 mmol/L Lwlxvp216 - 145 mmol/LFTMC RemisolUrea nitrogen [Mass/Vol]20 mg/dLNormal5 - 21 mg/dLFTMC RemisolUrea nitrogen/Creatinine [Mass ratio]18 mg/ftXxffyn56 - 20FTMC RemisolHEMATOLOGYOrdered By: SYSTEM SYSTEM on 05-10-3185Asmpdwnto/100 WBC (Bld) 0.4 %Normal0.0 - 2.0 %[facility] HemeAutoSSBasophils/Leukocytes Auto (Bld) [Pure # fraction]0.0 E9/LNormal0.0 - 0.2 E9/LFTMC HemeAutoSSEosinophils/100 WBC (Bld)2.4 %Normal0.0 - 8.0 %[facility] HemeAutoSSEosinophils/Leukocytes Auto (Bld) [Pure # fraction]0.2 E9/LNormal0.0 - 0.5 E9/LFTMC HemeAutoSSLymphocytes/100 WBC (Bld) 21.9 %Xnozfc14.0 - 50.0 %[facility] HemeAutoSSLymphocytes/Leukocytes Auto (Bld) [Pure # fraction]1.8 E9/LNormal1.0 - 4.0 E9/LFTMC HemeAutoSSMonocytes/100 WBC (Bld)6.9 %Normal4.0 - 14.0 %[facility] HemeAutoSSMonocytes/Leukocytes Auto (Bld) [Pure # fraction]0.6 E9/LNormal0.2 - 1.0 E9/LFTMC HemeAutoSSNeutrophils/100 WBC (Bld) 68.4 %Gdmaof61.0 - 75.0 %[facility] HemeAutoSSNeutrophils/Leukocytes Auto (Bld) [Pure # fraction]5.8 E9/LNormal2.0 - 7.5 E9/LFTMC HemeAutoSSHEMATOLOGYOrdered By: Ethel Peters on 23-75-6097Rigckmpbcga distribution width (RBC) [Ratio]13.9 % Uxcmve91.9 - 14.2 %[facility] HemeAutoSSHematocrit (Bld) [Volume fraction]43.6 %Normal 37.7 - 49.0 %[facility] HemeAutoSSHemoglobin (Bld) [Mass/Vol]14.5 g/cRAapknw43.5 - 17.5 gm/dLFTMC HemeAutoSSMCH (RBC) [Entitic mass]30.4 cvNdnjjm27.0 - 34.0 pgFTMC HemeAutoSSMCHC (RBC) [Mass/Vol]33.2 g/tHMarghv17.4 - 36.0 gm/dLFTMC HemeAutoSS MCV (RBC) [Entitic vol]91.7 oOZfplow86.0 - 100.0 fLFTMC HemeAutoSSPlatelet mean volume (Bld) [Entitic vol]8.6 fLNormal6.4 - 10.8 fLFTMC HemeAutoSSPlatelets (Bld) [#/Vol]236.0 E9/LCqjhva276.0 - 500.0 E9/LFT[facility] HemeAutoSSRBC (Bld) [#/Vol] 4.8 E12/LNormal4.3 - 5.9 E12/LFT[facility] HemeAutoSSWBC corrected for nucl RBC Auto (Bld) [#/Vol]8.4 E9/LNormal4.0 - 11.0 E9/LFT[facility] HemeAutoSSMICRO OTHER TESTS Ordered By: Elba Felipe on [id number] WBC LactoferrinNegative 3 (03/10/23 12:45 PM)NormalNegativeFTMC Man SeroComment on above:Interpretive Data: The semi-quantitative detection of elevated levels of fecal lactoferrin is a marker for fecal leukocytes and an indication of intestinal inflammation. CHEMISTRYOrdered By: Yash Shah on [id number] DL <= 20 mg/L (U) [Mass/Vol]microgram/mLNormal0.0 - 19.0 mcg/mLFTMC RemisolAlbumin Elph (U) [Mass fraction]mg/dLInvalid Interpretation CodeALL[facility] [place] RemisolCreatinine (U) [Mass/Vol] 15.9 mg/dLInvalid Interpretation CodeALL[facility] [place] Chem MONSALVE Prot/Creat RatioUTCInvalid Interpretation Code0.00 - 200.00[facility] [place] Chem SComment on above:Result Comment: Unable to calculate due to Protein being less than analyzer reportable range.CBC AUTO DIFFon [id number] #0.1 103/ulNormal0.0-0.1The [facility] HospitalComment on above:Performed By: #### CBC #### [facility] [address] [address] [address] Ramsey SanchezBasophils/100 WBC (Bld)0.7 %Normal0.2-2.0[facility] Comment on above:Performed By: #### CBC #### [facility] [address] [address] [address] Ramsey Ortiz #0.2 103/ulNormal0.0-0.7The [facility] HospitalComment on above: Performed By: #### CBC #### [facility] [address] [address] [address] Ramsey Canoosinophils/100 WBC (Bld)1.5 %Normal0.9-7.0[facility] Comment on above:Performed By: #### CBC #### [facility] [address] [address] [address] Ramsey Canorythrocyte distribution width (RBC) [Ratio]13.6 %Sbkimh36.0-15.0 [facility] CenterComment on above:Performed By: #### CBC #### [facility] [address] [address] [address] Ramsey SanchezHematocrit (Bld) [Volume fraction]43.5 %Emjmgc82.0-54.0[facility] CenterComment on above:Performed By: #### CBC #### [facility] [address] [address] [address] Ramsey SanchezHemoglobin (Bld) [Mass/Vol]13.9 g/dLCritically low14.0-18.0The [facility] HospitalComment on above:Performed By: #### CBC #### [facility] [address] [place] [address] Dr. Ramsey Nowak #0.29 10e3/ulCritically high0.00-0.03The [facility] Comment on above:Performed By: #### CBC #### [facility] [address] [place] [address] Dr. Ramsey Nowak %2.9 %Critically high0.0-0.5The [facility] HospitalComment on above:Performed By: #### CBC #### [facility] [address] [place] [address] Dr. Ramsey Damon #2.1 103/ulNormal1.2-3.8The [facility] HospitalComment on above:Performed By: #### CBC #### [facility] [address] [place] [address] Dr. Ramsey Greenwoodhocytes/100 WBC (Bld)20.8 %Bebkrs34.5-60.0The [facility] HospitalComment on above:Performed By: #### CBC #### [facility] [address] [place] [address] Dr. Ramsey Mckinley DIFF REQNONormalThe [facility] HospitalComment on above: Performed By: #### CBC #### [facility] [address] [place] [address] Dr. Ramsey Enriquez (RBC) [Entitic mass]29.6 piFwafex64.9-34.0The [facility] HospitalComment on above:Performed By: #### CBC #### [facility] [address] [place] [address] Dr. Ramsey Enriquez (RBC) [Mass/Vol]32.0 g/rVXxinng73.9-35.2The [facility] HospitalComment on above:Performed By: #### CBC #### [facility] [address] [place] [address] Dr. Ramsey Enriquez (RBC) [Entitic vol]92.6 oFZekteo06.0-94.0The [facility] HospitalComment on above:Performed By: #### CBC #### [facility] [address] [place] [address] Dr. Ramsey Ignacio #0.8 103/ulNormal0.3-0.8The [facility]fton HospitalComment on above:Performed By: #### CBC #### [facility] [address] [place] [address] Dr. Ramsey Ervinocytes/100 WBC (Bld)8.3 %Normal1.7-12.0The [facility] Comment on above:Performed By: #### CBC #### [facility] [address] [place] [address] Dr. Ramsey Cooney #6.5 103/ulNormal1.4-6.5The [facility] HospitalComment on above:Performed By: #### CBC #### [facility] [address] [place] [address] Dr. Ramsey Torresutrophils/100 WBC (Bld)65.8 %Eqoqpo28.0-75.0The [facility] HospitalComment on above:Performed By: #### CBC #### [facility] [address] [place] [address] Dr. Ramsey Aguirre mean volume (Bld) [Entitic vol]11.1 fLNormal9.5-13.5The [facility] HospitalComment on above:Performed By: #### CBC #### [facility] [address] [place] [address] Dr. Ramsey HernandezT198 103/zsWmxuhj089-550Hfe [facility] HospitalComment on above: Performed By: #### CBC #### [facility] [address] [place] [address] Dr. Ramsey SanchezRBC4.70 106/ulNormal4.70-6.10The [facility] HospitalComment on above:Performed By: #### CBC #### [facility] [address] [place] [address] Dr. Ramsey PardoBC9.9 103/ulNormal4.0-11.0[facility] CenterComment on above: Performed By: #### CBC #### [facility] [address] [place] [address] Dr. Ramsey Delgadillo URINE PROFILEon 23-69-1054Fpeyalqlf Ql (U)NegativeNormal NEGATIVEUpper Valley Medical CenterComment on above:Performed By: #### ERUR #### [facility] [address] [place] [address] Dr. Ramsey SanchezClarity (U)CLEARNormalCLEARUpper Valley Medical CenterComment on above: Performed By: #### ERUR #### [facility] [address] [place] [address] Dr. Ramsey Mendez (U)YELLOWNormalYELLOWUpper Valley Medical CenterComment on above: Performed By: #### ERUR #### [facility] [address] [place] [address] Dr. Ramsey BaconESME micrscopic examination will be performed if indicated. NormalThe [facility] HospitalComment on above:Performed By: #### ERUR #### [facility] [address] [place] [address] Dr. Ramsey SanchezGlucose Ql (U)NegativeNormalNEGATIVEUpper Valley Medical CenterComment on above:Performed By: #### ERUR #### [facility] [address] [place] [address] Dr. Ramsey SanchezHemoglobin Ql (U)NegativeNormalNEGATIVEChillicothe Hospital on above:Performed By: #### ERUR #### [facility] [address] [place] [address] Dr. Ramsey SanchezKetones Ql (U)NegativeNormalNEGATIVEUpper Valley Medical CenterComment on above:Performed By: #### ERUR #### [facility] [address] [place] [address] Dr. Ramsey SanchezLEUKOCYTESNegativeNormalNEGATIVEUpper Valley Medical CenterComment on above:Performed By: #### ERUR #### [facility] [address] [place] [address] Dr. Ramsey Eugene Ql (U)NegativeNormalNEGATIVEThe [facility] HospitalComment on above:Performed By: #### ERUR #### [facility] [address] [place] [address] Dr. Ramsey SanchezpH (U)5.5 [pH]Normal5-9The [facility] HospitalComment on above: Performed By: #### ERUR #### [facility] [address] [place] [address] Dr. Ramsey SanchezSPEC GRAVITY1.318Pqpehm1.005-<=1.025The [facility]fton HospitalComment on above:Performed By: #### ERUR #### [facility] [address] [place] [address] Dr. Ramsey Calle PROTEINNegativeNormalNEGATIVE/ TRACEThe [facility] Comment on above:Performed By: #### ERUR #### [facility] [address] [place] [address] Dr. Ramsey Hemphill MICRO INDNOT INDICATEDNormalThe [facility] HospitalComment on above:Performed By: #### ERUR #### [facility] [address] [place] [address] Dr. Ramsey Arredondobilinogen Qn (U)0.2 {Leatha'U}/dLNormal0.2 - 1.0The [facility] HospitalComment on above:Performed By: #### ERUR #### [facility] [address] [place] [address] Dr. Ramsey SanchezLACTATE/LACTIC ACIDon [id number] [Moles/Vol]1.7 mmol/L Normal0.4-2.0The [facility] HospitalComment on above:Performed By: #### LACT #### [facility] [address] [place] [address] Dr. Ramsey Pete 14(COMP METB)on 87-32-2781Gnvwqli [Mass/Vol]3.1 g/dL Critically low3.4-5.0The [facility] HospitalComment on above:Performed By: #### CMP, HSTROPN #### [facility] [address] [address] [address] Ramsey SanchezAlbumin/Globulin [Mass ratio]0.8 {ratio}NormalThe [facility] HospitalComment on above:Performed By: #### CMP, HSTROPN #### [facility] [address] [address] [address] Ramsey QureshiP [Catalytic activity/Vol]73 U/FOqrnji78-489Ykk [facility] HospitalComment on above:Performed By: #### CMP, HSTROPN #### [facility] [address] [address] [address] Ramsey QureshiT [Catalytic activity/Vol]22 U/WRgmmsp48-12Tsd [facility] HospitalComment on above:Performed By: #### CMP, HSTROPN #### [facility] [address] [place] [address] Dr. Ramsey Regaladoon gap [Moles/Vol]13.5 mmol/LNormalThe [facility] Comment on above:Performed By: #### CMP, HSTROPN #### [facility] [address] [address] [address] Ramsey SanchezAST [Catalytic activity/Vol]26 U/VQvuaxk30-63Cou [facility] HospitalComment on above:Performed By: #### CMP, HSTROPN #### [facility] [address] [place] [address] Dr. Ramsey SanchezBilirubin [Mass/Vol]0.4 mg/dLNormal0.2-1.0The [facility] Comment on above:Performed By: #### CMP, HSTROPN #### [facility] [address] [address] [address] Ramsey SanchezCalcium [Mass/Vol]8.4 mg/dLCritically low8.5-10.1The [facility] HospitalComment on above:Performed By: #### CMP, HSTROPN #### [facility] [address] [address] [address] Ramsey SanchezChloride [Moles/Vol]107 mmol/AWrjuyg15-690Ayu [facility] Comment on above:Performed By: #### CMP, HSTROPN #### [facility] [address] [address] [address] Ramsey SanchezCO2 [Moles/Vol]26.1 mmol/SPiupfw34.0-32.0The [facility] Comment on above:Performed By: #### CMP, HSTROPN #### [facility] [address] [address] [address] Ramsey SanchezCreatinine [Mass/Vol]0.94 mg/dLNormal0.70-1.30The [facility] HospitalComment on above:Performed By: #### CMP, HSTROPN #### [facility] [address] [place] [address] Dr. Ramsey CanoGFR-AF MALAYSIAN>60Normal>=60The [facility] HospitalComment on above:Performed By: #### CMP, HSTROPN #### [facility] [address] [place] [address] Dr. Ramsey CanoGFR-NON AF MALAYSIAN>60Normal>=60The [facility] HospitalComment on above:Performed By: #### CMP, HSTROPN #### [facility] [address] [place] [address] Dr. Ramsey SanchezGlobulin (S) [Mass/Vol]3.7 g/dLNormalThe [facility] HospitalComment on above:Performed By: #### CMP, HSTROPN #### [facility] [address] [place] [address] Dr. Ramsey SanchezGlucose [Mass/Vol]118 mg/dLCritically jpuk95-712Nkb [facility] HospitalComment on above:Performed By: #### CMP, HSTROPN #### [facility] [address] [place] [address] Dr. Ramsey SanchezPotassium [Moles/Vol]3.6 mmol/LNormal3.5-5.1The [facility] Comment on above:Performed By: #### CMP, HSTROPN #### [facility] [address] [place] [address] Dr. Ramsey SanchezProtein [Mass/Vol]6.8 g/dLNormal6.4-8.2The [facility] Comment on above:Performed By: #### CMP, HSTROPN #### [facility] [address] [address] [address] Ramsey SanchezSodium [Moles/Vol]143 mmol/CKiyjsk066-586Pct [facility] Comment on above:Performed By: #### CMP, HSTROPN #### [facility] [address] [address] [address] Ramsey SanchezUrea nitrogen [Mass/Vol]19.0 mg/dLCritically high7.0-18.0The [facility] HospitalComment on above:Performed By: #### CMP, HSTROPN #### [facility] [address] [address] [address] Ramsey Curiel nitrogen/Creatinine [Mass ratio]20.2 mg/mgNormalThe [facility] HospitalComment on above:Performed By: #### CMP, HSTROPN #### [facility] [address] [address] [address] Ramsey Steward, HIGH SENSITIVITYon 76-95-8682WVPDMV9.8 pg/mLNormal 4.0-76.1The [facility] HospitalComment on above:Result Comment: CUT-OFF POINTS HAVE BEEN ESTABLISHED BASED ON THE FOURTH UNIVERSAL DEFINITIONS OF MYOCARDIAL INFARCTION. THE UPPER REFERENCE LIMIT (URL) OF TROPONIN, DEFINED THE 99TH PERCENTILE OF cTnI DISTRIBUTION IN A REFERENCE POPULATION, HAS BEEN CONFIRMED THE DECISION THRESHOLD FOR IA DIAGNOSIS.Performed By: #### CMP, HSTROPN #### [facility] [address] [place] [address] Dr. Ramsey SanchezXR CHEST 1 Von [id number] CHEST 1 VEXAM: XR CHEST 1 V [...] hardware and overlying objects out of the fvtqz-dn-ljgp. Electronically authenticated by: ALANNA CARLOS Date: 2022-09-29 16:37[facility] HospitalBNPon [id number] peptide B (Bld) [Mass/Vol]720.0 pg/mLNormal<=1,800.0The [facility] HospitalComment on above:Performed By: #### CXSTOOL #### [facility] [address] [place] [address] Dr. Ramsey Bruno RAFI ADMITon [id number] [Catalytic activity/Vol]198 U/L Ehatqy65-552Vtx [facility] HospitalComment on above:Performed By: #### CXSTOOL #### [facility] [address] [place] [address] Dr. Ramsey Reyes.MB [Mass/Vol]2.62 ng/mLNormal<=3.60[facility] Comment on above:Performed By: #### CXSTOOL #### [facility] [address] [place] [address] Dr. Ramsey Craig8.8 pg/mLNormal4.0-76.1The [facility]cyrus Hospitalment on above:Result Comment: CUT-OFF POINTS HAVE BEEN ESTABLISHED BASED ON THE FOURTH UNIVERSAL DEFINITIONS OF MYOCARDIAL INFARCTION. THE UPPER REFERENCE LIMIT (URL) OF TROPONIN, DEFINED THE 99TH PERCENTILE OF cTnI DISTRIBUTION IN A REFERENCE POPULATION, HAS BEEN CONFIRMED THE DECISION THRESHOLD FOR IA DIAGNOSIS.Performed By: #### CXSTOOL #### [facility] [address] [place] [address] Dr. Ramsey Mcrae69 ng/xVCqlpyz30-33Ouw [facility] HospitalComment on above: Performed By: #### CXSTOOL #### [facility] [address] [place] [address] Dr. Ramsey Eller AUTO DIFFon [id number] #0.0 103/ulNormal0.0-0.1The [facility] HospitalComment on above:Performed By: #### CBC #### [facility] [address] [place] [address] Dr. Ramsey SanchezBasophils/100 WBC (Bld)0.2 %Normal0.2-2.0The [facility] Comment on above:Performed By: #### CBC #### [facility] [address] [place] [address] Dr. Ramsey Ortiz #0.0 103/ulNormal0.0-0.7The [facility] HospitalComment on above: Performed By: #### CBC #### [facility] [address] [place] [address] Dr. Ramsey Canoosinophils/100 WBC (Bld)0.1 %Critically low0.9-7.0The [facility] HospitalComment on above:Performed By: #### CBC #### [facility] [address] [place] [address] Dr. Ramsey Canorythrocyte distribution width (RBC) [Ratio]14.0 %Mascnj10.0-15.0 The [facility] HospitalComment on above:Performed By: #### CBC #### [facility] [address] [place] [address] Dr. Ramsey SanchezHematocrit (Bld) [Volume fraction]45.4 %Odwtum01.0-54.0The [facility] HospitalComment on above:Performed By: #### CBC #### [facility] [address] [place] [address] Dr. Ramsey SanchezHemoglobin (Bld) [Mass/Vol]14.4 g/yHWhbbdm58.0-18.0The [facility] HospitalComment on above:Performed By: #### CBC #### [facility] [address] [place] [address] Dr. Ramsey Nowak #0.08 10e3/ulCritically high0.00-0.03The [facility] Comment on above:Performed By: #### CBC #### [facility] [address] [place] [address] Dr. Ramsey Nowak %0.9 %Critically high0.0-0.5The [facility] HospitalComment on above:Performed By: #### CBC #### [facility] [address] [place] [address] Dr. Ramsey Damon #1.6 103/ulNormal1.2-3.8The [facility] HospitalComment on above:Performed By: #### CBC #### [facility] [address] [place] [address] Dr. Ramsey Greenwoodhocytes/100 WBC (Bld)17.9 %Critically low20.5-60.0The [facility] HospitalComment on above:Performed By: #### CBC #### [facility] [address] [place] [address] Dr. Ramsey Mckinley DIFF REQNONormalThe [facility] HospitalComment on above: Performed By: #### CBC #### [facility] [address] [place] [address] Dr. Ramsey Hicks (RBC) [Entitic mass]29.8 ykOzikts59.9-34.0The [facility] HospitalComment on above:Performed By: #### CBC #### [facility] [address] [place] [address] Dr. Ramsey Enriquez (RBC) [Mass/Vol]31.7 g/kNIymegz95.9-35.2The [facility] HospitalComment on above:Performed By: #### CBC #### [facility] [address] [place] [address] Dr. Ramsey Enriquez (RBC) [Entitic vol]94.0 bVUskhhs84.0-94.0The [facility] HospitalComment on above:Performed By: #### CBC #### [facility] [address] [place] [address] Dr. Ramsey Ignacio #0.9 103/ulCritically high0.3-0.8The [facility] Comment on above:Performed By: #### CBC #### [facility] [address] [place] [address] Dr. Ramsey Ervinocytes/100 WBC (Bld)9.6 %Normal1.7-12.0The [facility] Comment on above:Performed By: #### CBC #### [facility] [address] [place] [address] Dr. Ramsey Cooney #6.3 103/ulNormal1.4-6.5The [facility] HospitalComment on above:Performed By: #### CBC #### [facility] [address] [place] [address] Dr. Ramsey Torresutrophils/100 WBC (Bld)71.3 %Jusmpq83.0-75.0The [facility] HospitalComment on above:Performed By: #### CBC #### [facility] [address] [place] [address] Dr. Ramsey Garciaslet mean volume (Bld) [Entitic vol]11.0 fLNormal9.5-13.5The [facility] HospitalComment on above:Performed By: #### CBC #### [facility] [address] [place] [address] Dr. Ramsey SanchezPLT203 103/rbDeonyc736-985Egi [facility] HospitalComment on above: Performed By: #### CBC #### [facility] [address] [place] [address] Dr. Ramsey RomanoC4.83 106/ulNormal4.70-6.10The [facility] HospitalComment on above:Performed By: #### CBC #### [facility] [address] [place] [address] Dr. Ramsey SanchezWBC8.9 103/ulNormal4.0-11.0The [facility] HospitalComment on above: Performed By: #### CBC #### [facility] [address] [place] [address] Dr. Ramsey Kauffman/LACTIC ACIDon 47-84-1620Jyuxwyd [Moles/Vol]1.0 mmol/L Normal0.4-2.0The [facility] HospitalComment on above:Performed By: #### CBC #### [facility] [address] [address] [address] Ramsey SanchezPROF 14(COMP METB)on 51-60-6145Bxsgepy [Mass/Vol]3.7 g/dLNormal 3.4-5.0The [facility] HospitalComment on above:Performed By: #### CXSTOOL #### [facility] [address] [address] [address] Ramsey SanchezAlbumin/Globulin [Mass ratio]0.9 {ratio}NormalThe [facility] HospitalComment on above:Performed By: #### CXSTOOL #### [facility] [address] [place] [address] Dr. Ramsey QureshiP [Catalytic activity/Vol]68 U/NHijofk98-457Ejg [facility] HospitalComment on above:Performed By: #### CXSTOOL #### [facility] [address] [address] [address] Ramsey Mclean [Catalytic activity/Vol]23 U/XZorqgc73-92Heg [facility] HospitalComment on above:Performed By: #### CXSTOOL #### [facility] [address] [address] [address] Ramsey Graham gap [Moles/Vol]12.6 mmol/LNormalThe [facility] Comment on above:Performed By: #### CXSTOOL #### [facility] [address] [address] [address] Ramsey Wilson [Catalytic activity/Vol]21 U/NWbhkmt92-96Egi [facility] HospitalComment on above:Performed By: #### CXSTOOL #### [facility] [address] [address] [address] Ramsey SanchezBilirubin [Mass/Vol]0.3 mg/dLNormal0.2-1.0The [facility] Comment on above:Performed By: #### CXSTOOL #### [facility] [address] [address] [address] Ramsey SanchezCalcium [Mass/Vol]8.8 mg/dLNormal8.5-10.1The [facility] Comment on above:Performed By: #### CXSTOOL #### [facility] [address] [address] [address] Ramsey SanchezChloride [Moles/Vol]104 mmol/SKxrirw64-067Rba [facility] Comment on above:Performed By: #### CXSTOOL #### [facility] [address] [address] [address] Ramsey SanchezCO2 [Moles/Vol]26.7 mmol/VKipfwq28.0-32.0The [facility] Comment on above:Performed By: #### CXSTOOL #### [facility] [address] [place] [address] Dr. Ramsey SanchezCreatinine [Mass/Vol]1.27 mg/dLNormal0.70-1.30The [facility] HospitalComment on above:Performed By: #### CXSTOOL #### [facility] [address] [address] [address] Mustafa ChangEGFR-AF MALAYSIAN>60Normal>=60The [facility] HospitalComment on above:Performed By: #### CXSTOOL #### [facility] [address] [place] [address] Dr. Ramsey CanoGFR-NON AF SZYNFFZC72 mL/min/1.47z4Bgqhgbzvve low>=60The [facility] HospitalComment on above:Performed By: #### CXSTOOL #### [facility] [address] [address] [address] Ramsey SanchezGlobulin (S) [Mass/Vol]3.9 g/dLNormalThe [facility] HospitalComment on above:Performed By: #### CXSTOOL #### [facility] [address] [place] [address] Dr. Ramsey SanchezGlucose [Mass/Vol]114 mg/dLCritically smxb87-639Nzm [facility] HospitalComment on above:Performed By: #### CXSTOOL #### [facility] [address] [address] [address] Ramsey SanchezPotassium [Moles/Vol]4.3 mmol/LNormal3.5-5.1The [facility] Comment on above:Performed By: #### CXSTOOL #### [facility] [address] [address] [address] Ramsey SanchezProtein [Mass/Vol]7.6 g/dLNormal6.4-8.2The [facility] Comment on above:Performed By: #### CXSTOOL #### [facility] [address] [address] [address] Ramsey SanchezSodium [Moles/Vol]139 mmol/NGbrisx991-771Wuu [facility] Comment on above:Performed By: #### CXSTOOL #### [facility] [address] [address] [address] Ramsey SanchezUrea nitrogen [Mass/Vol]19.0 mg/dLCritically high7.0-18.0[facility] CenterComment on above:Performed By: #### CXSTOOL #### [facility] [address] [place] [address] Dr. Ramsey Curiel nitrogen/Creatinine [Mass ratio]15.0 mg/mgNormalThe [facility] HospitalComment on above:Performed By: #### CXSTOOL #### [facility] [address] [place] [address] Dr. Ramsey SanchezXR CHEST 1 Von [id number] CHEST 1 VXR CHEST 1 V 09/24/2022 [...] Electronically authenticated by: TRACY HIGHTOWER Date: 2022-09-24 23:29NoAshtabula General HospitalCOVID + FLU Quick Testingon [id number]-CoV-2 (COVID-19) RNA MICHELLE+probe Ql (Unsp spec)PositiveProvidence Holy Family Hospital App[facility] Other COVID + FLU Quick TestingNegativeNofreeman heart institute [employer] Other POINT OF CARE GLUCOSEon 80-13-3053Laycwdz [Mass/Vol] 146 mg/dLCritically vsbh38-710Aln [facility] HospitalComment on above:Performed By: #### CXSTOOL #### [facility] [address] [place] [address] Dr. Ramsey Brar ARTERY UP EXT BILon [id number] ARTERY UP EXT BILEXAMINATION: US ARTERY UP [...] Electronically authenticated by: ERWIN GARCIA Date: 2022-04-16 17:21NoAshtabula General HospitalLACTOFERRIN FECAL QUANTon [id number], Fecal, Quant. 1.43 ug/mL(g)Normal0.00-7.24The [facility] HospitalComment on above:Result Comment: . Baseline (normal) [...] bowel syndrome (IBS).Performed By: #### CXSTOOL #### [facility] [address] [address] [address] Ramsey Eller AUTO DIFFon [id number] #0.1 103/ulNormal0.0-0.1The [facility] HospitalComment on above:Performed By: #### CBC #### [facility] [address] [address] [address] Ramsey SanchezBasophils/100 WBC (Bld)0.9 %Normal0.2-2.0[facility] Comment on above:Performed By: #### CBC #### [facility] [address] [place] [address] Dr. Ramsey Ortiz #0.3 103/ulNormal0.0-0.7The [facility] HospitalComment on above: Performed By: #### CBC #### [facility] [address] [place] [address] Dr. Ramsey Canoosinophils/100 WBC (Bld)2.6 %Normal0.9-7.0The [facility] Comment on above:Performed By: #### CBC #### [facility] [address] [place] [address] Dr. Ramsey Canorythrocyte distribution width (RBC) [Ratio]13.2 %Bgopfl42.0-15.0 The [facility] HospitalComment on above:Performed By: #### CBC #### [facility] [address] [place] [address] Dr. Ramsey SanchezHematocrit (Bld) [Volume fraction]46.1 %Uftzmg43.0-54.0The [facility] HospitalComment on above:Performed By: #### CBC #### [facility] [address] [place] [address] Dr. Ramsey SanchezHemoglobin (Bld) [Mass/Vol]14.5 g/lLKupgqr33.0-18.0[facility] CenterComment on above:Performed By: #### CBC #### [facility] [address] [place] [address] Dr. Ramsey Nowak #0.15 10e3/ulCritically high0.00-0.03The [facility] Comment on above:Performed By: #### CBC #### [facility] [address] [address] [address] Ramsey Nowak %1.3 %Critically high0.0-0.5The [facility] HospitalComment on above:Performed By: #### CBC #### [facility] [address] [address] [address] Ramsey Damon #2.7 103/ulNormal1.2-3.8The [facility] HospitalComment on above:Performed By: #### CBC #### [facility] [address] [place] [address] Dr. Ramsey Greenwoodhocytes/100 WBC (Bld)23.0 %Fycbrl82.5-60.0The [facility] HospitalComment on above:Performed By: #### CBC #### [facility] [address] [place] [address] Dr. Ramsey Mckinley DIFF REQNONormalThe [facility] HospitalComment on above: Performed By: #### CBC #### [facility] [address] [place] [address] Dr. Ramsey Hicks (RBC) [Entitic mass]31.0 raHhchho80.9-34.0The [facility] HospitalComment on above:Performed By: #### CBC #### [facility] [address] [place] [address] Dr. Ramsey Enriquez (RBC) [Mass/Vol]31.5 g/kSOcqdbh32.9-35.2The [facility] HospitalComment on above:Performed By: #### CBC #### [facility] [address] [place] [address] Dr. Ramsey Meyer (RBC) [Entitic vol]98.5 fLCritically high80.0-94.0The [facility] HospitalComment on above:Performed By: #### CBC #### [facility] [address] [place] [address] Dr. Ramsey Ignacio #0.9 103/ulCritically high0.3-0.8The [facility] Comment on above:Performed By: #### CBC #### [facility] [address] [place] [address] Dr. Ramsey Ervinocytes/100 WBC (Bld)7.4 %Normal1.7-12.0[facility] Comment on above:Performed By: #### CBC #### [facility] [address] [place] [address] Dr. Ramsey Cooney #7.6 103/ulCritically high1.4-6.5The [facility] Comment on above:Performed By: #### CBC #### [facility] [address] [place] [address] Dr. Ramsey Torresutrophils/100 WBC (Bld)64.8 %Okcwop41.0-75.0The [facility] HospitalComment on above:Performed By: #### CBC #### [facility] [address] [place] [address] Dr. Ramsey SanchezPlatelet mean volume (Bld) [Entitic vol]11.5 fLNormal9.5-13.5The [facility] HospitalComment on above:Performed By: #### CBC #### [facility] [address] [place] [address] Dr. Ramsey SanchezPLT243 103/seCactnt161-060Zva [facility] HospitalComment on above: Performed By: #### CBC #### [facility] [address] [place] [address] Dr. Ramsey SanchezRBC4.68 106/ulCritically low4.70-6.10The [facility] HospitalComment on above:Performed By: #### CBC #### [facility] [address] [place] [address] Dr. Ramsey SanchezWBC11.7 103/ulCritically high4.0-11.0The [facility] HospitalComment on above:Performed By: #### CBC #### [facility] [address] [place] [address] Dr. Ramsey SanchezGLYCOHEMOGLOBIN A1Con [id number] RECOMMENDATIONSEE BELOWNormal The [facility] HospitalComment on above:Result Comment: ADA RECOMMENDED LIMIT 4.0 - 6.0 ADA THERAPEUTIC TARGET < 7.0 ACTION SUGGESTED > 7.0Performed By: #### A1C #### [facility] [address] [address] [address] Ramsey SanchezGlucose [Mass/Vol]123 mg/dLNoAshtabula General HospitalComment on above:Performed By: #### A1C #### [facility] [address] [place] [address] Dr. Ramsey SanchezHbA1c (Bld) [Mass fraction]5.9 %Normal4.5-6.2The [facility] HospitalComment on above:Performed By: #### A1C #### [facility] [address] [place] [address] Dr. Ramsey SanchezLIPID PROFILEon [id number]-HDL RATIO NORMSEE [facility] HospitalComment on above:Result Comment: 3.3 - 4.4 LOW RISK 4.4 - 7.1 AVERAGE RISK 7.1 - 11.0 MODERATE RISK >11.0 HIGH RISKPerformed By: #### CBC #### [facility] [address] [place] [address] Dr. Ramsey Lyonsesterol [Mass/Vol]121 mg/dLNormal<=200The [facility] Comment on above:Performed By: #### CBC #### [facility] [address] [place] [address] Dr. Ramsey SanchezCholesterol in HDL [Mass/Vol]30 mg/dLCritically csx70-20Edm [facility] HospitalComment on above:Performed By: #### CBC #### [facility] [address] [address] [address] Ramsey SanchezCholesterol in LDL [Mass/Vol]47.6 mg/dLNoAshtabula General HospitalComup health system on above:Performed By: #### CBC #### [facility] [address] [place] [address] Dr. Ramsey Lyonsestermary jo.total/Cholesterol in HDL [Mass ratio]4.0 {ratio} NormalAdena Fayette Medical Center on above:Performed By: #### CBC #### [facility] [address] [address] [address] Ramsey Harris NORMAL> or = 60 mg/dl - LOW CARDIOVASCULAR RISK <40 mg/dl - HIGH CARDIOVASCULAR RISKUniversity Hospitals Geneva Medical Center on above:Performed By: #### CBC #### [facility] [address] [address] [address] Ramsey SanchezLDL CALC NORMALSEE BELOWSalem City HospitalComment on above:Result Comment: <100 mg/dl OPTIMAL 100 - 129 mg/dl NEAR OR ABOVE OPTIMAL 130 - 159 mg/dl BORDERLINE HIGH 160 - 189 mg/dl HIGH >190 mg/dl VERY HIGH Performed By: #### CBC #### [facility] [address] [place] [address] Dr. Ramsey SanchezTriglyceride [Mass/Vol]217 mg/dLCritically high<=150The [facility] on above:Performed By: #### CBC #### [facility] [address] [address] [address] Ramsey Gross CALC43.4 mg/dLNoAshtabula General HospitalComup health system on above: Performed By: #### CBC #### [facility] [address] [place] [address] Dr. Ramsey Eduardo PROFILEon [id number] [Mass/Vol]3.9 g/dLNormal3.4-5.0 [facility] on above:Performed By: #### CBC #### [facility] [address] [place] [address] Dr. Ramsey SanchezAlbumin/Globulin [Mass ratio]1.1 {ratio}NormalThe [facility] HospitalComup health system on above:Performed By: #### CBC #### [facility] [address] [place] [address] Dr. Ramsey QureshiP [Catalytic activity/Vol]75 U/MLeqdzq92-821Xqv [facility] on above:Performed By: #### CBC #### [facility] [address] [address] [address] Ramsey QureshiT [Catalytic activity/Vol]21 U/NEwyluw27-50Bwh [facility] HospitalComment on above:Performed By: #### CBC #### [facility] [address] [address] [address] Ramsey Wilson [Catalytic activity/Vol]17 U/GPqmxjc09-06Tiv [facility] HospitalComment on above:Performed By: #### CBC #### [facility] [address] [address] [address] Ramsey FunesI, CONJUGATED0.1 mg/dLNormal0.0-0.2The [facility] Comment on above:Performed By: #### CBC #### [facility] [address] [address] [address] Ramsey Funesirubin [Mass/Vol]0.4 mg/dLNormal0.2-1.0The [facility] Comment on above:Performed By: #### CBC #### [facility] [address] [address] [address] Ramsey SanchezGlobulin (S) [Mass/Vol]3.5 g/dLNormalThe [facility] HospitalComment on above:Performed By: #### CBC #### [facility] [address] [place] [address] Dr. Ramsey SanchezProtein [Mass/Vol]7.4 g/dLNormal6.4-8.2The [facility] Comment on above:Performed By: #### CBC #### [facility] [address] [place] [address] Dr. Ramsey SanchezMICROALBUMIN, RAND URon [id number]<1.3Normal<=30.0The [facility] HospitalComment on above:Performed By: #### MALBR #### [facility] [address] [place] [address] Dr. Ramsey SanchezPROF CHEM 8 (BAS METB)on 47-27-3445Voaqj gap [Moles/Vol]12.6 mmol/LNormalThe [facility] HospitalComment on above:Performed By: #### CBC #### [facility] [address] [address] [address] Ramsey SanchezCalcium [Mass/Vol]8.9 mg/dLNormal8.5-10.1The [facility] Comment on above:Performed By: #### CBC #### [facility] [address] [address] [address] Ramsey SanchezChloride [Moles/Vol]103 mmol/ERqbegr38-005Qso [facility] Comment on above:Performed By: #### CBC #### [facility] [address] [address] [address] Ramsey SanchezCO2 [Moles/Vol]28.5 mmol/XPreqoh11.0-32.0The [facility] Comment on above:Performed By: #### CBC #### [facility] [address] [address] [address] Ramsey SanchezCreatinine [Mass/Vol]0.89 mg/dLNormal0.70-1.30The [facility] HospitalComment on above:Performed By: #### CBC #### [facility] [address] [address] [address] Ramsey CanoGFR-AF MALAYSIAN>60Normal>=60The [facility] HospitalComment on above:Performed By: #### CBC #### [facility] [address] [address] [address] Ramsey CanoGFR-NON AF MALAYSIAN>60Normal>=60The [facility] HospitalComment on above:Performed By: #### CBC #### [facility] [address] [address] [address] Ramsey SanchezGlucose [Mass/Vol]102 mg/gNHdujag94-831Yws [facility] Comment on above:Performed By: #### CBC #### [facility] [address] [address] [address] Ramsey SanchezPotassium [Moles/Vol]4.1 mmol/LNormal3.5-5.1The [facility] Comment on above:Performed By: #### CBC #### [facility] [address] [address] [address] Ramsey SanchezSodium [Moles/Vol]140 mmol/JWguxuq179-920JebUpper [facility] Medical Center Comment on above:Performed By: #### CBC #### [facility] [address] [address] [address] Ramsey Curiel nitrogen [Mass/Vol]16.0 mg/dLNormal7.0-18.0The [facility] HospitalComment on above:Performed By: #### CBC #### [facility] [address] [address] [address] Ramsey Curiel nitrogen/Creatinine [Mass ratio]18.0 mg/mgNoAshtabula General HospitalComment on above:Performed By: #### CBC #### [facility] [address] [address] [address] Ramsey Beauchamp CULTUREon [id number] CultureFinal reportNormal [facility] CenterComment on above:Performed By: #### CXSTOOL #### [facility] [address] [address] [address] Ramsey Cano coli Shiga Toxin EIANegativeNoalNegativeUpper Valley Medical Center Comment on above:Performed By: #### CXSTOOL #### [facility] [address] [address] [address] Ramsey Chapman 1CommentNoAshtabula General HospitalComment on above:Result Comment: No Salmonella or Shigella recovered.Performed By: #### CXSTOOL #### [facility] [address] [address] [address] Ramsey Chapman Comment: No Campylobacter species isolated. Salmonella/Shigella ScreenFinal reportNoAshtabula General HospitalComment on above:Performed By: #### CXSTOOL #### [facility] [address] [address] [address] Ramsey SanchezVITAMIN D 25 OHon 48-76-0741AYM D 25-OH40.2 ng/mLNormalThe [facility] HospitalComment on above:Performed By: #### VITAD #### [facility] [address] [address] [address] Ramsey FORRESTParkview Health Montpelier HospitalComment on above: Result Comment: <20 ng/mL Vit D deficient 20 - <30 ng/mL Vit D insufficient 30 - 100 ng/mL Vit D sufficient >100 ng/mL Potential ToxicityPerformed By: #### VITAD #### [facility] [address] [address] [address] Ramsey Washburn GLUCOSE LABon 23-30-9782Kllihzz [Mass/Vol]120 mg/yKSmiu81-603 The [facility] Memorial HospitalComment on above:Performed By: #### [id number] #### [facility] [address] [place] [address], USAGlucose [Mass/Vol]114 mg/aOPbtd60-961Tbf [facility] HospitalComment on above:Performed By: #### [id number] #### [facility] [address] [place] [address], USAGlucose [Mass/Vol]136 mg/nLPbov77-241Dtz [facility] HospitalComment on above:Performed By: #### [id number] #### [facility] [address] [place] [address], USABASIC METABOLIC PANELon 99-27-2431Uugfcqk [Mass/Vol]9.3 mg/dLNormal8.6-10.3The [facility] HospitalComment on above: Performed By: #### [id number] #### [facility] [address] [place] [address], USAChloride [Moles/Vol]103 mmol/UCnndun22-673Jne [facility] HospitalComment on above:Performed By: #### 49649 #### [facility] [address] [place] [address], USACO2 [Moles/Vol]27 mmol/KGqyocc97-43Wbf [facility] HospitalComment on above:Performed By: #### 86511 #### [facility] [address] [place] [address], USACreatinine [Mass/Vol]1.04 mg/dLNormal0.70-1.30The [facility] HospitalComment on above:Performed By: #### 57897 #### [facility] [address] [place] [address], USAGFR/1.73 sq M predicted among blacks MDRD (S/P/Bld) [Vol rate/Area]mL/min/{1.73_m2}Normal>60The [facility] Comment on above:Result Comment: Calculation may not be valid for patients over 70 yearsPerformed By: #### 82204 #### [facility] [address] [facility] [place] [address], USAGFR/1.73 sq M predicted among non-blacks MDRD (S/P/Bld) [Vol rate/Area]mL/min/{1.73_m2}Normal>60The [facility] Comment on above:Result Comment: Calculation may not be valid for patients over 70 yearsPerformed By: #### 69286 #### [facility] [address] [address], USAGlucose [Mass/Vol]128 mg/nQOvaf97-827Xoc [facility] HospitalComment on above:Performed By: #### [id number] #### [facility] [address] [place] [address], USAPotassium [Moles/Vol]4.2 mmol/LNormal3.5-5.1The [facility] HospitalComment on above:Performed By: #### 69547 #### [facility] [address] [place] [address], USASodium [Moles/Vol]139 mmol/HRyqlbl051-435Kns [facility] HospitalComment on above:Performed By: #### 33697 #### [facility] [address] [facility] [address], USAUrea nitrogen [Mass/Vol]20 mg/dLNormal7-25The [facility] HospitalComment on above:Performed By: #### [id number] #### [facility] [address] [place] [address], USACBC COMPLETE BLOOD COUNTon 35-98-0918Ooreuppybxb distribution width (RBC) [Ratio]13.9 %Wxaikt48.5-15.0The [facility] HospitalComment on above:Performed By: #### 18095 #### [facility] [address] [place] [address], MESCALERO SERVICE UNITHematocrit (Bld) [Volume fraction]44.9 %Prxtrc61.0-50.0The [facility] HospitalComment on above:Performed By: #### 61325 #### [facility] [address] [place] [address], MESCALERO SERVICE UNITHemoglobin (Bld) [Mass/Vol]14.5 g/lVHmceew66.0-17.0The [facility] HospitalComment on above:Performed By: #### 69926 #### [facility] [address] [place] [address], MESCALERO SERVICE UNITMCH (RBC) [Entitic mass]30.7 zbFzoajs63.0-33.0The [facility] HospitalComment on above:Performed By: #### 77960 #### [facility] [address] [place] [address], MESCALERO SERVICE UNITMCHC (RBC) [Mass/Vol]32.3 g/hZZpnfwz71.0-35.0The [facility] HospitalComment on above:Performed By: #### 29243 #### [facility] [address] [place] [address], MESCALERO SERVICE UNITMCV (RBC) [Entitic vol]95.1 gMEshwbj12.0-98.0The [facility] HospitalComment on above:Performed By: #### 59357 #### [facility] [address] [place] [address], USANucleated RBC/100 WBC (Bld) [Ratio]0 %Normal0-0The [facility] HospitalComment on above:Performed By: #### 33617 #### [facility] [address] [place] [address], USAPLAT ART420 10*3/hTHzzmva827-535Gxu [facility] HospitalComment on above:Performed By: #### 51330 #### [facility] [address] [address], USARBC (Bld) [#/Vol]4.72 10*6/uLNormal4.20-5.70The [facility] HospitalComment on above:Performed By: #### 39623 #### [facility] [address] [facility] [place] [place] [address], USAWBC (Bld) [#/Vol]12.83 10*3/uLHigh4.00-10.60The [facility] HospitalComment on above:Performed By: #### 21126 #### [facility] [address] [id number], USACardiovascular Lab Reporton [id number] Lab ReportUnRiverside Methodist Hospital Patient Name: [facility] MR #: [id number] Physician: Margaret Arellano, Department of M.D. Medicine Service Date: 08/30/2019 Division of Birthdate: 1940 Cardiology Room #: 3AB [id number] Adult Cardiovascular Services [facility] [address] [address] Cardiovascular Laboratory Report FINAL IMPRESSIONS: 1. 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 2. 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 3. 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 4. Twhk-mp-jvpmcrpo disease of the left anterior descending coronary [...] Follow up with Dr. Arellano in the [place] office in the next 2 to 4 [...] left common femoral artery was obtained. A 6-[place] Citizen 11 cm sheath was inserted without difficulty. Limited femoral angiography was performed. Bilateral selective coronary angiography was performed using JL4 and JR4 catheters. After reviewing the images, it was elected to proceed with an interventional procedure. A 6-[place] Citizen XB 3.5 guide catheter was advanced [...] conclude the procedure. Attempts to deploy a 6-[place] Citizen MynxGrip closure device were unsuccessful. Therefore, [...] Arellano M.D. Date Trans: 08/30/2019 05:00 P/mmo DN_JN:[id number] cc: Demetrius Cooper MD [address] [facility] [address]MftvlxJsgKettering Health Main CampusPO GLUCOSE LABon 14-04-5233Jmtkfkc [Mass/Vol]172 mg/qKMntv79-710JlhChillicothe VA Medical CenterComment on above:Performed By: #### 67061 #### [facility] [address] [place] [address], MESCALERO SERVICE UNITGlucose [Mass/Vol]138 mg/wXJkcy80-391Wzl [facility] HospitalComment on above:Performed By: #### 69291 #### [facility] [address] [place] [address], [facility] Vital Signs Date TimeVital SignValuePerforming HltjupmxhHadutrhk43-39-4955 13:46-0400Body xmmyqg464.1 Alexsandra Cooper MD Work Phone: [phone] [place], [place] 3718610-23-2025 13:46-0400 Body mass index (BMI) [Ratio]25.7 kg/f6HnmxgjDemetrius Cooper MD Work Phone: [phone] [place], [place] 6251410-23-2025 13:46-0400 Body mtywzg81.3 kgDemetrius Cooper MD Work Phone: [phone] [place], [place] 625[address]10-23-2025 13:46-0400 Diastolic blood kgatwmxr32 mm[Hg]Demetrius Cooper MD Work Phone: [phone]10-23-2025 13:46-0400 Heart rate63 /Rosalba Cooper MD Work Phone: [facility]10-23-2025 13:46-0400 Systolic blood vgqfatbe211 mm[Hg]Demetrius Cooper MD Work Phone: [facility]09-04-2025 09:32-0400 Body akhkck546.1 cmFredric Itzkowitz DO Work Phone: [facility] HospitalLstrraeory56-71-7568 09:32-0400Body mass index (BMI) [Ratio]24.63 kg/l6Ggpdkdj Itzkowitz DO Work Phone: [facility] HospitalNzoykdyjhz59-38-1834 09:32-0400Body gdxana77.13 kgFredric Itzkowitz DO Work Phone: [facility] HospitalMkamrraeoa56-18-7035 13:08-0400Body jeqofi51.12 kgDemetrius Cooper MD Work Phone: [facility]07-28-2025 13:30-0400 Body mass index (BMI) [Ratio]26.65 kg/f7XgyqkgfMary Ly MD Work Phone: [facility]07-28-2025 13:30-0400 Body vxyyms75.65 kgMary Ly MD Work Phone: [facility]07-28-2025 13:30-0400 Diastolic blood mm[Hg]Mary Ly MD Work Phone: [facility]07-28-2025 13:30-0400 Systolic blood oxxuylzx431 mm[Hg]Mray Ly MD Work Phone: [facility]07-10-2025 09:57-0400 Body rdyqomsipmk59 [degF]Demetrius Coopre MD Work Phone: [facility]07-10-2025 09:57-0400 Body nontam00.02 kgDemetrius Cooper MD Work Phone: [facility]07-10-2025 09:57-0400 Diastolic blood mm[Hg]Demetrius Cooper MD Work Phone: [phone] [place], [place] 5402207-10-2025 09:57-0400 Heart rate68 /Rosalba Cooper MD Work Phone: [phone] [place], [place] 5402207-10-2025 09:57-0400 Respiratory rate18 /Rosalba Cooper MD Work Phone: [phone] [place], [place] 5402207-10-2025 09:57-0400 SaO2% (BldA) [Mass fraction]98 %Demetrius Cooper MD Work Phone: [phone]07-10-2025 09:57-0400 Systolic blood djibctwr637 mm[Hg]Demetrius Cooper MD Work Phone: 1(857)41223 [address]05-28-2025 13:56-0400 Body .1 cmFredric Itzkowitz DO Work Phone: 1(143)5767421[facility]Mxrkxhvuss26-16-9462 13:56-0400Body mass index (BMI) [Ratio]24.63 kg/m6Tmboygq Itzkowitz DO Work Phone: [facility] HospitalGkyvmdipow89-83-7684 13:56-0400Body eognkn38.13 kgFredric Itzkowitz DO Work Phone: [facility] HospitalHnvcxkckou48-81-0749 14:58-0400Body ixhzdz049.64 cmSleno Cooper MD Work Phone: 1(799)[address]05-20-2025 12:00-0400 Diastolic blood dbresajw92 mm[Hg]Demetrius Cooper MD Work Phone: 1(450)20023 [address]05-20-2025 12:00-0400 Heart rate63 /Rosalba Cooper MD Work Phone: 1(703)[address]05-20-2025 12:00-0400 Respiratory rate16 /Rosalba Cooper MD Work Phone: 1(662)684-[address] [place], [place] 5402205-20-2025 12:00-0400 SaO2% (BldA) [Mass fraction]95 %Demetrius Cooper MD Work Phone: [facility]05-20-2025 12:00-0400 Systolic blood yvzcgwuk877 mm[Hg]Demetrius Cooper MD Work Phone: 1(509)685-[address] [place], [place] 5402205-20-2025 11:30-0400 Inhaled oxygen flow rate4 L/minSleno Cooper MD Work Phone: 1(870)387-[address] [place], [place] 5402205-20-2025 10:15-0400 Body yceizv465.1 cmSleno Cooper MD Work Phone: 1(474)497-[address] [place], [place] 5402205-20-2025 10:15-0400 Body tpmxlvwnexz89.3 [degF]Demetrius Cooper MD Work Phone: 1(922)[address]05-20-2025 10:15-0400 Body hbsuzz93.13 kgDemetrius Cooper MD Work Phone: 6(412)853-[address] [place], [place] 5402205-15-2025 13:47-0400 Body glfong101.1 cmAngela Lowe PA Work Phone: [facility] HospitalLqstmkstiw04-28-3061 13:47-0400Body mass index (BMI) [Ratio]24.63 kg/t1Vvejma Lowe PA Work Phone: [facility] HospitalQghhaikrir53-76-6039 13:47-0400Body zridbf15.13 kgAngela Lowe PA Work Phone: [facility] HospitalEkdjapdstn43-70-6401 13:47-0400Diastolic blood cewasimk28 mm[Hg]Missy Lowe PA Work Phone: no[facility] CenterNdgktcfelq52-37-5835 13:47-0400Systolic blood qjovspbd470 mm[Hg]Missy Lowe PA Work Phone: noBo[facility] CenterWrmtkreipg34-71-4617 13:20-0400Body rtwdzi366.1 cmFredric Itzkowitz DO Work Phone: noBo[facility] CenterJoclznnmin41-98-3364 13:20-0400Body mass index (BMI) [Ratio]24.96 kg/q3Lgxwxyb Itzkowitz DO Work Phone: [facility] HospitalLuvyqjviik52-76-4617 13:20-0400Body ugftjn37.04 kgFredric Itzkowitz DO Work Phone: [facility] HospitalTiztacgdaj79-44-4085 13:20-0400Diastolic blood tybbxwoh37 mm[Hg]Veena Itzkowitz DO Work Phone: [facility] HospitalAcgrvqnvqv17-86-5441 13:20-0400Systolic blood naxeiiso50 mm[Hg]Veena Itzkowitz DO Work Phone: 1(576)0941511[facility] HospitalLnntjjeggi63-02-8173 14:55-0400Body .1 Alexsandra Cooper MD Work Phone: 1(339)97223 [address]05-13-2025 14:55-0400 Body mass index (BMI) [Ratio]24.6 kg/r6XnccxyDemetrius Cooper MD Work Phone: 1(678)81223 [address]05-13-2025 14:55-0400 Body vammwgbtvxc55.8 [degF]Demetrius Cooper MD Work Phone: 1(503)94623 [address]05-13-2025 14:55-0400 Body nysiwx79.13 kgDemetrius Cooper MD Work Phone: 1(241)87023 [address]05-13-2025 14:55-0400 Diastolic blood rwepllwg34 mm[Hg]Demetrius Cooper MD Work Phone: 1(943)46723 [address]05-13-2025 14:55-0400 Heart rate66 /minSleno Cooper MD Work Phone: 1(032)475-[address] [place], [place] 5402205-13-2025 14:55-0400 Systolic blood yebdqlry90 mm[Hg]Demetrius Cooper MD Work Phone: 1(204)[address]05-07-2025 21:13-0400 Body birxatcmlah07.6 [degF]Demetrius Cooper MD Work Phone: 1(580)406-[address] [place], [place] 5402205-07-2025 21:13-0400 Diastolic blood nfslpfme12 mm[Hg]Demetrius Cooper MD Work Phone: 1(045)458-[address] [place], [place] 5402205-07-2025 21:13-0400 Heart rate68 /Rosalba Cooper MD Work Phone: 1(580)57323 [address]05-07-2025 21:13-0400 Respiratory rate18 /Rosalba Cooper MD Work Phone: 1(336)95523 [address]05-07-2025 21:13-0400 SaO2% (BldA) [Mass fraction]96 %Demetrius Cooper MD Work Phone: 1(789)477[address]05-07-2025 21:13-0400 Systolic blood hcpeuvdm784 mm[Hg]Demetrius Cooper MD Work Phone: 1(422)[address]05-07-2025 15:13-0400 Body espxgg246.1 Alexsandra Cooper MD Work Phone: 1(820)15[address]05-07-2025 15:13-0400 Body kgDemetrius Cooper MD Work Phone: 1(715)[address]04-28-2025 13:07-0400 Body ewwmth463.1 cmMary Ly MD Work Phone: [facility]04-28-2025 13:07-0400 Body mass index (BMI) [Ratio]24.84 kg/k6ChsfbraMary Ly MD Work Phone: [facility]04-28-2025 13:07-0400 Body kuduajrtzja36.8 [degF]Mary Ly MD Work Phone: [facility]04-28-2025 13:07-0400 Body .72 kgMary Ly MD Work Phone: [facility]04-28-2025 10:14-0400 Body loealc740.56 Alexsandra Cooper MD Work Phone: 1(956)640-[address] [place], [place] 5402204-28-2025 10:14-0400 Body mass index (BMI) [Ratio]25.7 kg/r5AhbjvlDemetrius Cooper MD Work Phone: 1(147)068[address]04-28-2025 10:14-0400 Body ughljn66.03 kgDemetrius Cooper MD Work Phone: 1(748)[address] [place], [place] 5622204-28-2025 10:14-0400 Diastolic blood mm[Hg]Demetrius Cooper MD Work Phone: 1(610)[address] [place], [place] 5622204-28-2025 10:14-0400 Heart rate76 /Rosalba Cooper MD Work Phone: 1(051)[address] [place], [place] 5622204-28-2025 10:14-0400 SaO2% (BldA) [Mass fraction]98 %Demetrius Cooper MD Work Phone: 1(291)[address] [place], [place] 5622204-28-2025 10:14-0400 Systolic blood mm[Hg]Demetrius Cooper MD Work Phone: 1(910)[address] [place], [place] 5622204-09-2025 09:49-0400 Body lpbpcyzxnbd58.5 [degF]Demetrius Cooper MD Work Phone: 1(435)[address] [place], [place] 5622204-09-2025 09:49-0400 Body xtaofh34.12 kgDemetrius Cooper MD Work Phone: 1(473)[address] [place], [place] 5622204-09-2025 09:49-0400 Diastolic blood fpdjezlz82 mm[Hg]Demetrius Cooper MD Work Phone: 1(139)[address] [place], [place] 5622204-09-2025 09:49-0400 Heart rate94 /Rosalba Cooper MD Work Phone: 1(299)[address] [place], [place] 5622204-09-2025 09:49-0400 Respiratory rate20 /Rosalba Cooper MD Work Phone: 1(360)[address] [place], [place] 5622204-09-2025 09:49-0400 SaO2% (BldA) [Mass fraction]98 %Demetrius Cooper MD Work Phone: 1(442)[address] [place], [place] 5622204-09-2025 09:49-0400 Systolic blood sozrstit664 mm[Hg]Demetrius Cooper MD Work Phone: 1(272)[address] [place], [place] 5622204-07-2025 12:53-0400 Body .64 cmSleno Cooper MD Work Phone: 1(078)[address] [place], [place] 5622204-07-2025 11:36-0400 Body ingtrpbkvis74 [degF]Demetrius Cooper MD Work Phone: 1(987)[address] [place], [place] 5622204-07-2025 11:36-0400 Diastolic blood lyfcqpdq10 mm[Hg]Demetrius Cooper MD Work Phone: 1(035)[address] [place], [place] 5622204-07-2025 11:36-0400 Heart rate76 /Rosalba Cooper MD Work Phone: 1(485)[address] [place], [place] 5622204-07-2025 11:36-0400 Respiratory rate18 /Rosalba Cooper MD Work Phone: 1(484)[address] [place], [place] 5622204-07-2025 11:36-0400 SaO2% (BldA) [Mass fraction]96 %Demetrius Cooper MD Work Phone: 1(825)[address] [place], [place] 5622204-07-2025 11:36-0400 Systolic blood ypgovago856 mm[Hg]Demetrius Cooper MD Work Phone: 1(074)[address] [place], [place] 5622204-07-2025 04:13-0400 Body yjazju12.9 kgDemetrius Cooper MD Work Phone: 1(327)[address] [place], [place] 5622204-06-2025 19:00-0400 Diastolic blood gccipkiz25 mm[Hg]Demetrius Cooper MD Work Phone: 1(818)[address] [place], [place] 5622204-06-2025 19:00-0400 Heart rate61 /Rosalba Cooper MD Work Phone: 1(319)[address] [place], [place] 5622204-06-2025 19:00-0400 Respiratory rate18 /Rosalba Cooper MD Work Phone: 1(669)[address] [place], [place] 5622204-06-2025 19:00-0400 SaO2% (BldA) [Mass fraction]92 %Demetrius Cooper MD Work Phone: 1(211)[address]04-06-2025 19:00-0400 Systolic blood mm[Hg]Demetrius Cooper MD Work Phone: 1(934)[address] [place], [place] 5622204-06-2025 18:04-0400 Body abddsbrnaiu42.1 [degF]Demetrius Cooper MD Work Phone: 1(219)[address] [place], [place] 5622204-06-2025 16:57-0400 Body .56 cmSleno Cooper MD Work Phone: 1(115)[address] [place], [place] 5622204-06-2025 16:57-0400 Body csqmec41.6 kgDemetrius Cooper MD Work Phone: 1(510)[address] [place], [place] 5622204-03-2025 08:23-0400 Body iseutr024.64 cmSleno Cooper MD Work Phone: 1(767)[address] [place], [place] 5622204-03-2025 08:23-0400 Body onejutyocwa63.3 [degF]Demetrius Cooper MD Work Phone: 1(376)[address] [place], [place] 5622204-03-2025 08:23-0400 Body azzplb60.25 kgDemetrius Cooper MD Work Phone: 1(753)[address] [place], [place] 5622204-03-2025 08:23-0400 Diastolic blood cbjwffon92 mm[Hg]Demetrius Cooper MD Work Phone: 1(666)[address] [place], [place] 5622204-03-2025 08:23-0400 Heart rate90 /Rosalba Cooper MD Work Phone: 1(398)[address] [place], [place] 5622204-03-2025 08:23-0400 Respiratory rate18 /Rosalba Cooper MD Work Phone: 1(966)[address] [place], [place] 5622204-03-2025 08:23-0400 SaO2% (BldA) [Mass fraction]95 %Demetrius Cooper MD Work Phone: 1(446)[address] [place], [place] 5622204-03-2025 08:23-0400 Systolic blood kbemfwjb510 mm[Hg]Demetrius Cooper MD Work Phone: 1(261)[address] [place], [place] 5622204-02-2025 09:18-0400 Body pgropu15.4 kgDemetrius Cooper MD Work Phone: 1(154)[address] [place], [place] 5622203-27-2025 15:40-0400 Body sgcpli958.64 cmSleno Cooper MD Work Phone: 1419)[address] [place], [place] 5622203-27-2025 08:25-0400 Body nznkxpswubr94.8 [degF]Demetrius Cooper MD Work Phone: 1(419)[address] [place], [place] 5622203-27-2025 08:25-0400 Diastolic blood mm[Hg]Demetrius Cooper MD Work Phone: 1(383)[address] [place], [place] 5622203-27-2025 08:25-0400 Heart rate68 /Rosalba Cooper MD Work Phone: 1(419)[address] [place], [place] 5622203-27-2025 08:25-0400 Respiratory rate18 /Rosalba Cooper MD Work Phone: 1(407)[address] [place], [place] 5622203-27-2025 08:25-0400 SaO2% (BldA) [Mass fraction]94 %Demetrius Cooper MD Work Phone: 1(107)[address] [place], [place] 5622203-27-2025 08:25-0400 Systolic blood lkxxuqcz124 mm[Hg]Demetrius Cooper MD Work Phone: 1(421)[address] [place], [place] 5622203-26-2025 09:28-0400 Body bokeox22.1 Franklyn Cooper MD Work Phone: 1419)[address] [place], [place] 5622203-26-2025 09:16-0400 Body hjirdf42.1 Franklyn Cooper MD Work Phone: 1(419)[address] [place], [place] 5622203-26-2025 09:16-0400 Diastolic blood ijuabknl33 mm[Hg]Demetrius Cooper MD Work Phone: 1(419)[address] [place], [place] 5622203-26-2025 09:16-0400 Heart rate77 /Rosalba Cooper MD Work Phone: 1(349)[address] [place], [place] 5622203-26-2025 09:16-0400 Respiratory rate18 /Rosalba Cooper MD Work Phone: 1(448)[address] [place], [place] 5622203-26-2025 09:16-0400 SaO2% (BldA) [Mass fraction]97 %Demetrius Cooper MD Work Phone: 1(690)[address] [place], [place] 5622203-26-2025 09:16-0400 Systolic blood oecfnomk320 mm[Hg]Demetrius Cooper MD Work Phone: 1(966)[address] [place], [place] 5622203-20-2025 09:58-0400 Body unncjg995.64 cmSleno Cooper MD Work Phone: 1(258)[address] [place], [place] 5622203-20-2025 08:27-0400 Body vkgykzolfda65.9 [degF]Demetrius Cooper MD Work Phone: 1(063)[address] [place], [place] 5622203-20-2025 08:27-0400 Diastolic blood tzmgyqne74 mm[Hg]Demetrius Cooper MD Work Phone: 1(149)[address] [place], [place] 5622203-20-2025 08:27-0400 Heart rate85 /Rosalba Cooper MD Work Phone: 1(120)[address] [place], [place] 5622203-20-2025 08:27-0400 Respiratory rate18 /Rosalba Cooper MD Work Phone: 1(041)[address] [place], [place] 5622203-20-2025 08:27-0400 SaO2% (BldA) [Mass fraction]95 %Demetrius Cooper MD Work Phone: 1(375)[address] [place], [place] 5622203-20-2025 08:27-0400 Systolic blood wrudrjez268 mm[Hg]Demetrius Cooper MD Work Phone: 1(447)[address] [place], [place] 5622203-14-2025 16:29-0400 Body aywjmt737.64 Alexsandra Cooper MD Work Phone: 1(163)[address] [place], [place] 5622203-13-2025 08:28-0400 Body hvgohanxzzc31.1 [degF]Demetrius Cooper MD Work Phone: 1(044)[address] [place], [place] 5622203-13-2025 08:28-0400 Body sxqthe26.2 kgDemetrius Cooper MD Work Phone: 1(419)[address] [place], [place] 5622203-13-2025 08:28-0400 Diastolic blood gibaqfyu06 mm[Hg]Demetrius Cooper MD Work Phone: 1(419)[address] [place], [place] 5622203-13-2025 08:28-0400 Heart rate62 /Rosalba Cooper MD Work Phone: 1(419)[address] [place], [place] 5622203-13-2025 08:28-0400 Respiratory rate18 /Rosalba Cooper MD Work Phone: 1(419)[address] [place], [place] 5622203-13-2025 08:28-0400 SaO2% (BldA) [Mass fraction]95 %Demetrius Cooper MD Work Phone: 1(419)[address] [place], [place] 5622203-13-2025 08:28-0400 Systolic blood wigpyzlf975 mm[Hg]Demetrius Cooper MD Work Phone: 1(419)[address] [place], [place] 5622203-12-2025 08:23-0400 Body lccsfmkryfz21.6 [degF]Demetrius Cooper MD Work Phone: 1(419)[address] [place], [place] 5622203-12-2025 08:23-0400 Body .48 Franklyn Cooper MD Work Phone: 1(448)[address] [place], [place] 5622203-12-2025 08:23-0400 Diastolic blood izgqqsrc49 mm[Hg]Demetrius Cooper MD Work Phone: 1(419)[address] [place], [place] 5622203-12-2025 08:23-0400 Heart rate64 /Rosalba Cooper MD Work Phone: 1(419)[address] [place], [place] 5622203-12-2025 08:23-0400 Respiratory rate20 /Rosalba Cooper MD Work Phone: 1(419)[address] [place], [place] 5622203-12-2025 08:23-0400 SaO2% (BldA) [Mass fraction]96 %Demetrius Cooper MD Work Phone: 1(419)[address] [place], [place] 5622203-12-2025 08:23-0400 Systolic blood mm[Hg]Demetrius Cooper MD Work Phone: 1(139)[address] [place], [place] 5622203-06-2025 10:18-0500 Body .38 kgDemetrius Cooper MD Work Phone: 1(504)[address] [place], [place] 5622203-06-2025 08:46-0500 Body slyocsgomjy43.8 [degF]Demetrius Cooper MD Work Phone: 1(568)[address] [place], [place] 5622203-06-2025 08:46-0500 Body vecfop75.84 kgDemetrius Cooper MD Work Phone: 1(365)[address] [place], [place] 5622203-06-2025 08:46-0500 Diastolic blood xcovxdbs04 mm[Hg]Demetrius Cooper MD Work Phone: 1(162)[address] [place], [place] 5622203-06-2025 08:46-0500 Heart rate68 /Rosalba Cooper MD Work Phone: 1(892)[address] [place], [place] 5622203-06-2025 08:46-0500 Respiratory rate20 /Rosalba Cooper MD Work Phone: 1(999)[address] [place], [place] 5622203-06-2025 08:46-0500 SaO2% (BldA) [Mass fraction]97 %Demetrius Cooper MD Work Phone: 1(814)[address] [place], [place] 5622203-06-2025 08:46-0500 Systolic blood piireqoe083 mm[Hg]Demetrius Cooper MD Work Phone: 1(088)[address] [place], [place] 5622203-04-2025 08:50-0500 Body gjkaab804.64 cmSelno Cooper MD Work Phone: 1(448)[address] [place], [place] 5622203-03-2025 14:33-0500 Diastolic blood atuurgvn52 mm[Hg]Demetrius Cooper MD Work Phone: 1(955)[address] [place], [place] 5622203-03-2025 14:33-0500 Heart rate59 /Rosalba Cooper MD Work Phone: 1(822)[address] [place], [place] 5622203-03-2025 14:33-0500 Respiratory rate16 /Rosalba Cooper MD Work Phone: 1(076)[address] [place], [place] 5622203-03-2025 14:33-0500 SaO2% (BldA) [Mass fraction]96 %Demetrius Cooper MD Work Phone: 1(455)[address]03-03-2025 14:33-0500 Systolic blood sndqiobn892 mm[Hg]Demetrius Cooper MD Work Phone: 1(916)[address] [place], [place] 5622203-03-2025 13:48-0500 Body sronpphtxml77.3 [degF]Demetrius Cooper MD Work Phone: 1(924)[address] [place], [place] 5622203-03-2025 10:40-0500 Body jlojpe314.1 cmSleno Cooper MD Work Phone: 1(030)[address] [place], [place] 5622203-03-2025 10:40-0500 Body xhsitf91.11 kgDemetrius Cooper MD Work Phone: 1(353)[address] [place], [place] 5622202-27-2025 16:08-0500 Body .64 cmSleno Cooper MD Work Phone: 1(450)[address] [place], [place] 5622202-27-2025 08:37-0500 Body ovwqjcwnukx49.8 [degF]Demetrius Cooper MD Work Phone: 1(442)[address] [place], [place] 5622202-27-2025 08:37-0500 Body wxmlki95.01 kgDemetrius Cooper MD Work Phone: 1(194)[address] [place], [place] 5622202-27-2025 08:37-0500 Diastolic blood vporqsxw72 mm[Hg]Demetrius Cooper MD Work Phone: 1(730)[address] [place], [place] 5622202-27-2025 08:37-0500 Heart rate64 /Rosalba Cooper MD Work Phone: 1(809)[address] [place], [place] 5622202-27-2025 08:37-0500 Respiratory rate18 /Rosalba Cooper MD Work Phone: 1(043)[address] [place], [place] 5622202-27-2025 08:37-0500 SaO2% (BldA) [Mass fraction]95 %Demetrius Cooper MD Work Phone: 1(735)[address] [place], [place] 5622202-27-2025 08:37-0500 Systolic blood mm[Hg]Demetrius Cooper MD Work Phone: 1(828)[address]02-26-2025 08:41-0500 Body hosweyyhwrh19.3 [degF]Demetrius Cooper MD Work Phone: 1(695)[address] [place], [place] 5622202-26-2025 08:41-0500 Body qhcuxm81.65 kgDemetrius Cooper MD Work Phone: 1(269)[address] [place], [place] 5622202-26-2025 08:41-0500 Diastolic blood dihmezvt65 mm[Hg]Demetrius Cooper MD Work Phone: 1(609)[address] [place], [place] 5622202-26-2025 08:41-0500 Heart rate61 /Rosalba Cooper MD Work Phone: 1(944)[address] [place], [place] 5622202-26-2025 08:41-0500 Respiratory rate20 /Rosalba Cooper MD Work Phone: 1(636)[address] [place], [place] 5622202-26-2025 08:41-0500 SaO2% (BldA) [Mass fraction]96 %Demetrius Cooper MD Work Phone: 1(478)[address] [place], [place] 5622202-26-2025 08:41-0500 Systolic blood nhadgknd850 mm[Hg]Demetrius Cooper MD Work Phone: 1(171)[address] [place], [place] 5622202-20-2025 11:06-0500 Body ubnhlg382.64 cmSleno Cooper MD Work Phone: 1(889)[address] [place], [place] 5622202-20-2025 08:36-0500 Body lxkbgyncqps06.6 [degF]Demetrius Cooper MD Work Phone: 1(601)[address] [place], [place] 5622202-20-2025 08:36-0500 Body .83 kgDemetrius Cooper MD Work Phone: 1(263)[address] [place], [place] 5622202-20-2025 08:36-0500 Diastolic blood vdbshmtu21 mm[Hg]Demetrius Cooper MD Work Phone: 1(772)[address] [place], [place] 5622202-20-2025 08:36-0500 Heart rate63 /Rosalba Cooper MD Work Phone: 1(419)[address]02-20-2025 08:36-0500 Respiratory rate18 /Rosalba Cooper MD Work Phone: 1(366)[address] [place], [place] 5622202-20-2025 08:36-0500 SaO2% (BldA) [Mass fraction]95 %Demetrius Cooper MD Work Phone: 1(009)[address] [place], [place] 5622202-20-2025 08:36-0500 Systolic blood ydcbcaif689 mm[Hg]Demetrius Cooper MD Work Phone: 1(558)[address] [place], [place] 5622202-06-2025 14:58-0500 Body .56 cmSleno Cooper MD Work Phone: 1(861)[address] [place], [place] 5622202-06-2025 14:58-0500 Body vagkemyrihs05.5 [degF]Demetrius Cooper MD Work Phone: 1(697)[address] [place] 5622202-06-2025 14:58-0500 Body kgDemetrius Cooper MD Work Phone: 1(320)[address] [place], [place] 5622202-06-2025 14:58-0500 Diastolic blood mm[Hg]Demetrius Cooper MD Work Phone: 1(021)[address] [place], [place] 5622202-06-2025 14:58-0500 Heart rate50 /Rosalba Cooper MD Work Phone: 1(188)[address] [place], [place] 5622202-06-2025 14:58-0500 Respiratory rate20 /Rosalba Cooper MD Work Phone: 1(294)[address] [place], [place] 5622202-06-2025 14:58-0500 SaO2% (BldA) [Mass fraction]95 %Demetrius Cooper MD Work Phone: 1(548)[address]02-06-2025 14:58-0500 Systolic blood bmptatww588 mm[Hg]Demetrius Cooper MD Work Phone: 1(087)[address]23 [address]02-04-2025 14:38-0500 Body aqnksb885 Jaguar Bell MD Work Phone: [facility]xy[facility]wsang38-62-0449 14:38-0500Body mass index (BMI) [Ratio]30.11 kg/h0KxzvunMatteo Bell MD Work Phone: [facility] HospitalGvksbhafqm69-52-4064 14:38-0500Body vawtgr71.11 kgMatteo Bell MD Work Phone: 1(418)[facility]-6020[facility] HospitalPeqjaiattu99-32-7912 14:38-0500Diastolic blood pllgxiic26 mm[Hg]Matteo Bell MD Work Phone: 1(216)4084190[facility] HospitalBwzzeuwaax59-03-9303 14:38-0500Systolic blood hetwnmqi057 mm[Hg]Matteo Bell MD Work Phone: 1(255)[facility]6871[facility] HospitalQhjamcqklp55-52-3603 10:45-0500Body urnuqo704.64 cmSleno Cooper MD Work Phone: 1(329)[address]01-29-2025 10:45-0500 Body mass index (BMI) [Ratio]27.6 kg/w5IbwqplDemetrius Cooper MD Work Phone: 1(147)[address]23 [address]01-29-2025 10:45-0500 Body enwwbmvsrhn80.6 [degF]Demetrius Cooper MD Work Phone: 1(791)[address] [place], [place] 5622201-29-2025 10:45-0500 Body whpced85.56 kgDemetrius Cooper MD Work Phone: 1(536)[address] [place], [place] 5622201-29-2025 10:45-0500 Diastolic blood tcbytqgz38 mm[Hg]Demetrius Cooper MD Work Phone: 1(756)[address]23 [address]01-29-2025 10:45-0500 Heart rate69 /Rosalba Cooper MD Work Phone: 1(838)[address]323 [address]01-29-2025 10:45-0500 Respiratory rate20 /Rosalba Cooper MD Work Phone: 1(064)[address]01-29-2025 10:45-0500 Systolic blood zlydeoye539 mm[Hg]Demetrius Cooper MD Work Phone: 1(500)[address]01-29-2025 09:53-0500 Body doibrr077.64 cmSleno Cooper MD Work Phone: 1(844)[address] [place], [place] 5622201-29-2025 09:53-0500 Body mass index (BMI) [Ratio]27.6 kg/f7MpjnufDemetrius Cooper MD Work Phone: 1(192)[address] [place], [place] 5622201-29-2025 09:53-0500 Body eivaflmzzfz25.6 [degF]Demetrius Cooper MD Work Phone: 1(275)[address] [place], [place] 5622201-29-2025 09:53-0500 Body vjiftk84.56 kgDemetrius Cooper MD Work Phone: 1(579)[address] [place], [place] 5622201-29-2025 09:53-0500 Diastolic blood xhyibxth99 mm[Hg]Demetrius Cooper MD Work Phone: 1(607)[address] [place], [place] 5622201-29-2025 09:53-0500 Heart rate69 /Rosalba Cooper MD Work Phone: 1(214)[address] [place], [place] 5622201-29-2025 09:53-0500 Respiratory rate20 /Rosalba Cooper MD Work Phone: 1(926)[address] [place], [place] 5622201-29-2025 09:53-0500 SaO2% (BldA) [Mass fraction]96 %Demetrius Cooper MD Work Phone: 1(561)[address] [place], [place] 5622201-29-2025 09:53-0500 Systolic blood kulmtfcj138 mm[Hg]Demetrius Cooper MD Work Phone: 1(782)[address] [place], [place] 5622201-20-2025 14:13-0500 Diastolic blood gmccwvap77 mm[Hg][address] 06-05-2024 14:13-0500Heart rate65 /[facility] [address] [place] [address] 06-05-2024 14:13-0500Respiratory rate16 /[facility] [address] [place], [place] 0358801-20-2025 14:13-0643UwO3% (BldA) [Mass fraction]96 %[address]01-20-2025 14:13-0500Systolic blood dwtapdud325 mm[Hg][address]01-20-2025 12:22-0500Body nqnhsojxbqn04.2 [degF][address]01-14-2025 11:16-0500Body height 162.6 cmMary Ly MD Work Phone: 1([phone])079-[address] [place], [place] 8331401-14-2025 11:16-0500 Body mass index (BMI) [Ratio]28.89 kg/u4WbentraMary Ly MD Work Phone: 1(750)429-[address] [place], [place] 8331401-14-2025 11:16-0500 Body aanlofdonor85.2 [degF]Mary Ly MD Work Phone: 1(456)[address]01-14-2025 11:16-0500 Body ybtfdp31.34 kgMary Ly MD Work Phone: 1(366)9-[address] [place], [place] [id number] 10:00-0500 Body rvjzcrjuqaz21.7 [degF]Mary Ly MD Work Phone: 1(209)154-[address] [place], [place] [id number] 10:00-0500 Diastolic blood ldofucou63 mm[Hg]Mary Ly MD Work Phone: 1(017)322-[address] [place], [place] 8331412-26-2024 10:00-0500 Heart rate61 /Guerda Ly MD Work Phone: 1(556)495-[address] [place], [place] [id number] 10:00-0500 Respiratory rate14 /Guerda Ly MD Work Phone: 1(559)777-[address] [place], [place] [id number] 10:00-0500 SaO2% (BldA) [Mass fraction]95 %Mary Ly MD Work Phone: 1(040)5-[address] [place], [place] [id number] 10:00-0500 Systolic blood mejfskxy500 mm[Hg]Mary Ly MD Work Phone: 1(757)249-[address] [place], [place] [id number] 06:08-0500 Body ycodcc785.6 cmMary Ly MD Work Phone: [facility]12-26-2024 06:08-0500 Body mass index (BMI) [Ratio]29.52 kg/i3MihvemmMary yL MD Work Phone: [facility]12-26-2024 06:08-0500 Body denpwt81 kgMary Ly MD Work Phone: [facility]11-22-2024 10:40-0500 Body guajtr693.6 cmMary Ly MD Work Phone: [facility]11-22-2024 10:40-0500 Body mass index (BMI) [Ratio]29.18 kg/m6KqvlvicMary Ly MD Work Phone[facility] [facility]11-22-2024 10:40-0500 Body .11 kgMary Ly MD Work Phone: [facility]11-13-2024 10:06-0500 Body vachog790.6 cmLuc Ham MD Work Phone: [facility] HospitalNpwmvjznza18-77-3556 10:06-0500Body mass index (BMI) [Ratio]29.7 kg/n9LwwlyvLuc Ham MD Work Phone: [place] [address]Tbfzhkqqng69-42-4508 10:06-0500Body emetmy85.47 kgLuc Ham MD Work Phone: [place] [address]Tvhipfgenz46-99-5962 10:06-0500Diastolic blood fakguwya92 mm[Hg]Luc Ham MD Work Phone: [place] [address]Tujuqhmevq68-60-6847 10:06-0500Systolic blood jepcobke796 mm[Hg]Luc Ham MD Work Phone: [place] [address]Ebwmvwrulq56-73-0005 14:06-0500Blood Pressure [facility] 008-5479Blamql-FpaudLutheran Hospital11-07-2024 14:06-0500Diastolic blood aiokfmfg73 mm[Hg]Wiley Sarmini 109-3346Gxilka-CspvnLutheran Hospital11-07-2024 14:06-0500Heart rate71 /minMuhammad Sarmini 839-0941Mwpoog-UcjmfLutheran Hospital11-07-2024 14:06-0500Respiratory rate16 /minMuhammad Sarmini 884-5409Pswwxy-LitkhLutheran Hospital11-07-2024 14:06-0500Systolic blood qnhlbgoo838 mm[Hg]Wiley Sarmini 568-2186Rqgygh-QyfdrLutheran Hospital10-23-2024 09:25-0400Body xsmyid258.6 cmLuc Ham MD Work Phone: [phone] HospitalGpytedvghe65-01-5497 09:25-0400Body mass index (BMI) [Ratio]29.87 kg/v8JhnggvLuc Ham MD Work Phone: [facility] HospitalLxbkhsbuoj57-69-1548 09:25-0400Body roueyf25.93 kgLuc Ham MD Work Phone: [facility] HospitalJoolvxewcb81-46-9393 09:25-0400Diastolic blood bnrlsemo26 mm[Hg]Luc Ham MD Work Phone: [place] [address]Wdrotzjdkp34-35-1936 09:25-0400Systolic blood lgxnsibr824 mm[Hg]Luc Ham MD Work Phone: [phone] HospitalSwmowlsxyy87-80-8889 14:19-0400Body .6 cmLuc Ham MD Work Phone: [place] [address]Sagtkrkmfg74-62-3630 14:19-0400Body mass index (BMI) [Ratio]29.87 kg/k0ArclbyLuc Ham MD Work Phone: [place] [address]Mywvmleelj87-66-8418 14:19-0400Body qmruwq04.93 kgLuc Ham MD Work Phone: [facility] HospitalQmcqajkulh99-92-0746 14:19-0400Diastolic blood obtfwbrm78 mm[Hg]Luc Ham MD Work Phone: [facility] HospitalAqcnjfxkhr52-99-9195 14:19-0400Systolic blood vwutjgev341 mm[Hg]Luc Ham MD Work Phone: [place] [address]Ufhyqxopde27-71-1282 08:59-0400Body xejibz824.6 cmAngela Lowe PA Work Phone: [facility] HospitalOseyrtajaa35-96-8763 08:59-0400Body mass index (BMI) [Ratio]29.7 kg/n2Hasnft Lowe PA Work Phone: [facility] HospitalDmdblkzulg17-43-1073 08:59-0400Body ogisbh78.47 kgAngela Lowe PA Work Phone: [facility] HospitalEnkevwfvpx43-81-9429 08:59-0400Diastolic blood hheuasab45 mm[Hg]Missy Lowe PA Work Phone: [facility] HospitalRtvxpwqpgu91-08-8630 08:59-0400Systolic blood roppdesq925 mm[Hg]Missy Lowe PA Work Phone: [facility] HospitalXlakycbrvv05-28-8557 13:07-0400Body zoreuj602.6 cmLuc Ham MD Work Phone: [place] [address]Ftglynjcud63-13-1847 13:07-0400Body mass index (BMI) [Ratio]29.52 kg/j6TecmpiLuc Ham MD Work Phone: [place] [address]Xhobsxjtnm19-74-6580 13:07-0400Body jzogqp66.02 kgLuc Ham MD Work Phone: [place] [address]Mvbzcbwauy34-01-6860 13:07-0400Diastolic blood dtvuwucw16 mm[Hg]Luc Ham MD Work Phone: [place] [address]Qwrsthhybj20-57-7780 13:07-0400Systolic blood mm[Hg]Luc Ham MD Work Phone: [facility] HospitalUpmavxzlte66-52-3496 14:32-0400Blood Pressure LocationMuhammad Sarmini 509-6646Jfezwn-BhsgtLutheran Hospital06-06-2024 14:32-0400Diastolic blood kloxtgme30 mm[Hg]Wiley Sarmini 007-9689Debvwd-Hxpoo[address] [place], [place] 6448106-06-2024 14:32-0400Heart rate73 /minMuhammad Sarmini 845-0578Wbbrbm-Jdull[address] [place], [place] 6448106-06-2024 14:32-0400Respiratory rate18 /minMuhammad Sarmini 672-0436Orizdv-Jrzbj[address] [place], [place] 6448106-06-2024 14:32-0400Systolic blood vzchqyhy848 mm[Hg]Wiley Sarmini 867-6791Ynpstc-Dnhir[address] [place], [place] 6448105-03-2024 08:58-0400Blood Pressure LocationBeth Flori 118-5464Jaxpao-Fgqal[address] [place], [place] 6448105-03-2024 08:58-0400Body ywtmivpevmu71.34 [degF]Anjali Staffordmetz 353-1019Amlays-Nhmws[address] [place], [place] 6448105-03-2024 08:58-0400Diastolic blood xogiqhlq51 mm[Hg]Anjali Flori 259-3828Fcqymh-DwlrdLutheran Hospital05-03-2024 08:58-0400Heart rate66 /minBeth Flori 352-7948Rbvagw-Lskfi[address] [place], [place] 6448105-03-2024 08:58-0400Systolic blood sehjyeaj632 mm[Hg]Anjalijane StaffordFlori 034-6038Gyyval-Arkuk[address] [place], [place] 6448104-18-2024 13:28-0400Body pylghw144.64 cmCommunity [facility]04-18-2024 13:28-0400Body mass index (BMI) [Ratio]28 kg/g8RvsfmolryCommunity Memorial Hospital 09-02-2023 13:-0400Body xleyir66.69 kg[facility] 09-02-2023 13:28-0400Diastolic blood mm[Hg][facility]04-18-2024 13:28-0400Heart rate67 /minCommunity [facility] 09-02-2023 13:28-1888VgC7% (BldA) [Mass fraction]95 %[facility]04-18-2024 13:28-0400Systolic blood cuqnafnj663 mm[Hg][facility]03-12-2024 10:23-0400Body wtdozl450.64 cmCommunity [facility]03-12-2024 10:23-0400Body mass index (BMI) [Ratio]27.5 kg/m2 [facility]03-12-2024 10:23-0400Body zdhyobfzdzg13.9 [degF][facility]03-12-2024 10:-0400Body uowank72.28 kg [facility]03-12-2024 10:23-0400Diastolic blood mm[Hg][facility]03-12-2024 10:23-0400Heart rate86 /min [facility]03-12-2024 10:23-0400Respiratory rate18 /min [facility]03-12-2024 10:23-3141AdC2% (BldA) [Mass fraction]97 %[facility]03-12-2024 10:23-0400Systolic blood mm[Hg][facility]01-15-2024 13:30-0500 Body .64 Berenice Brunson Other [employer] Other 368619-81-5605 13:30-0500Body mass index (BMI) [Ratio]27.6 kg/v8JeeskGisele Brunson Other [employer] Other 01-15-2024 13:30-0500Body hcxuud91.57 kgPeggy Brunson Other [employer] Other 01-15-2024 13:30-0500Diastolic blood yjnekgic27 mm[Hg] Gisele Brunson Other [facility] [employer] Other 01-15-2024 13:30-7742QvV4% (BldA) [Mass fraction]94 % Gisele Brunson Other [employer] Other 01-15-2024 13:30-0500Systolic blood mspzhjdi739 mm[Hg] Gisele Brunson Other [facility] [employer] Other 01-09-2024 12:21-0500Blood Pressure LocationBeth Flori 991-6493Zloice-MnanpLutheran Hospital01-09-2024 12:21-0500Diastolic blood fuybpdzb88 mm[Hg]Anjali Flori 212-7997Oudhjm-HxmkxLutheran Hospital01-09-2024 12:21-0500Heart rate88 /minBeth Flori 589-7323Zjvhzj-CvlhjLutheran Hospital01-09-2024 12:21-0500Respiratory rate16 /minBeth Flori 718-3753Ajeinb-PqtciLutheran Hospital01-09-2024 12:21-0500Systolic blood nuccrhpl971 mm[Hg]Anjali Rbuy 106-8407Joohpo-FfbebLutheran Hospital11-16-2023 13:15-0500Body rzhfoaxssmr00.11 [degF]Vaishali Pringle MD Work Phone: [facility]11-16-2023 13:15-0500Body ofuhqx86.75 kgKingstonms Pino CASON Work Phone: [facility]11-16-2023 13:15-0500Diastolic blood rowjtwaf04 mm[Hg]Vaishali Pringle MD Work Phone: [facility]11-16-2023 13:15-0500Heart rate70 /min Vaishali Pringle MD Work Phone: [facility]11-16-2023 13:15-5179UqC5% (BldA) [Mass fraction]97 %Vaishali Pringle MD Work Phone: [facility]11-16-2023 13:15-0500Systolic blood kvgjevbw038 mm[Hg]Vaishali Pringle MD Work Phone: [facility]10-25-2023 08:53-0400Blood Pressure LocationBelina Ruby 806-9522Dmyfmz-SipuiLutheran Hospital10-25-2023 08:53-0400Body .16 [degF]Anjali Ruby 031-5568Vqhsnz-Xbefa[address] [place], [place] [address]8110-25-2023 08:53-0400Diastolic blood jkcmcqhy86 mm[Hg]Anjali Ruby 097-0102Ufmwmc-HjfniLutheran Hospital10-25-2023 08:53-0400Heart rate63 /minBeth Flori 134-1891Bwuvcf-Xfmuw[address] [place], [place] 6[address]8110-25-2023 08:53-0400Systolic blood zfumfkyf082 mm[Hg]Anjali Ruby 729-8517Iguzpr-HveclLutheran Hospital10-12-2023 13:27-0400Blood Pressure LocationAnjali Ruby 438-2301Dagdof-JdktpLutheran Hospital10-12-2023 13:27-0400Body pajudltvthy85.06 [degF]Anjali Ruby 751-1938Exyved-Vdcpc[address] [place] [address]-12-2023 13:27-0400Diastolic blood zvvysjyh45 mm[Hg]Anjali Ruby 160-2764Repmwx-MinvkLutheran Hospital10-12-2023 13:27-0400Heart rate85 /minBeth Flori 895-7872Ehivxo-EgogoLutheran Hospital10-12-2023 13:27-0400Respiratory rate16 /minBeth Flori 872-8668Pboulx-GivohLutheran Hospital10-12-2023 13:27-0400Systolic blood lnmeatre253 mm[Hg]Anjali Ruby 753-9856Egdsuw-ZloeaLutheran Hospital09-15-2023 10:15-0400Body ykxffa068.64 cmPeggy Brunson Other [employer] Other 09-15-2023 10:15-0400Body mass index (BMI) [Ratio] 28.24 kg/g5Ewssu Brunson Other [employer] Other 09-15-2023 10:15-0400Body .38 kgPeggy Brunson Other [employer] Other 09-15-2023 10:15-0400Diastolic blood cudqkosh85 mm[Hg] Gisele Brunson Other [employer] Other 09-15-2023 10:15-5435LpQ4% (BldA) [Mass fraction]95 % Gisele Brunson Other [employer] Other 09-15-2023 10:15-0400Systolic blood csxlzwcy260 mm[Hg] Gisele Brunson Other [employer] Other 08-29-2023 09:22-0400Blood Pressure LocationBeth Flori 254-8843Cfssuw-BbuzrLutheran Hospital08-29-2023 09:22-0400Body sevxvdbmjhr18.98 [degF]Anjali Ruby 266-0191Casgjg-EyzjlLutheran Hospital08-29-2023 09:22-0400Diastolic blood frowbftz81 mm[Hg]Anjali Ruby 428-8065Yjnjuq-GpkjxLutheran Hospital08-29-2023 09:22-0400Heart rate69 /minAnjali Ruby 958-5822Xdrbbo-OtnghLutheran Hospital08-29-2023 09:22-0400Systolic blood hdvizrmi926 mm[Hg]Anjali Ruby 695-5001Lvudfk-QqstbLutheran Hospital05-30-2023 09:45-0400Body lddiux384.64 cmPegjennyfer Brunson Other [employer] Other 05-30-2023 09:45-0400Body mass index (BMI) [Ratio] 27.92 kg/a0Rpatvflores Brunson Other [employer] Other 05-30-2023 09:45-0400Body .47 kgPeflores Brunson Other [employer] Other 05-30-2023 09:45-0400Diastolic blood btsyptrx55 mm[Hg] Giselejennyfer Brunson Other [employer] Other 05-30-2023 09:45-8515CiM2% (BldA) [Mass fraction]95 % Giselejennyfer Brunson Other [employer] Other 05-30-2023 09:45-0400Systolic blood ajdqyhxe483 mm[Hg] Gisele Brunson Other [facility] [employer] Other 868821-37-3663 18:14-0400Body kxugjrgtgas82.86 [degF]Gordy Sánchez [facility]05-09-2023 16:28-0400Body dsinudxlhvp676.3 [degF]Gordy Sánchez [address] [place], [place] [address]05-09-2023 16:28-0400 Diastolic blood seaxyssf42 mm[Hg]Gordy Sánchez [address] [place], [place] 4160705-09-2023 16:28-0400Heart rate79 /Farhana Sánchez [address] [place], [place] 4160705-09-2023 16:28-0400 Respiratory rate17 /minGordy Sánchez [address] [place], [place] 4160705-09-2023 16:28-0549OuW5% (BldA) [Mass fraction]93 %Gordy Sánchez [facility]05-09-2023 16:28-0400 Systolic blood sdmghyre847 mm[Hg]Gordy Sánchez [facility]05-09-2023 14:10-0400Body ncbjce477.64 Tigre Pennington Other [facility] [employer] Other 05-09-2023 14:10-0400Body mass index (BMI) [Ratio]29.7 kg/h7EcdqxzGriselda Pennington Other [place] [employer] Other 05-09-2023 14:10-0400Body sonyymryjrr909 [degF]Griselda Pennington Other [place] [employer] Other 05-09-2023 14:10-0400Body zmpuhl83.46 kgPaestrada Pennington Other [employer] Other 05-09-2023 14:10-0400Respiratory rate18 /minGriselda Pennington Other [employer] Other 05-09-2023 14:10-2839QpO8% (BldA) [Mass fraction]93 % Griselda Pennington Other [employer] Other 03-15-2023 10:15-0400Body foyyvk074.64 cmDawon Salazar Other [employer] Other 03-15-2023 10:15-0400Body mass index (BMI) [Ratio] 30.02 kg/h2Rkzqdwon Salazar Other [employer] Other 03-15-2023 10:15-0400Body idnpvy23.37 kgDawon Salazar Other [employer] Other 03-15-2023 10:15-0400Diastolic blood zukegerf97 mm[Hg] Erwin Salazar Other [employer] Other 03-15-2023 10:15-7999KhN2% (BldA) [Mass fraction]94 % Erwin Salazar Other [employer] Other 03-15-2023 10:15-0400Systolic blood jikezoln646 mm[Hg] Erwin Salazar Other [employer] Other 07-16-2022 10:25-0400Body .64 cmSjorge Garcia Other [employer] Other 07-16-2022 10:25-0400Body whkhunbocla84.9 [degF] Leti Garcia Other [employer] Other 07-16-2022 10:25-0400Respiratory rate18 /minSjorge Garcia Other [employer] Other 07-16-2022 10:25-3672GgL9% (BldA) [Mass fraction]93 % Leti Garcia Other [employer] Other Encounters Encounter DateEncounter TypeCare ProviderFacilityStart: 03-22-2025 End: 95-74-2202Ypfeyon encounter procedureChang Russell MD-CT Scan [facility] Work Phone: Start: 03-22-2025 End: 09-41-8947zwgnjgpgfpOwfgju E Ross MD Work Phone: -[facility] HospitalStart: 03-12-2025 End: 88-52-3486liqcsxeqbfRnlmmmb Vytautas Giedraitis MDFacility:PM Nicolette Start: 03-08-2025 End: 54-87-1748oqnongsovcUsucsm E Ross MD Work Phone: [phone]-Rsggcdgwd Health GastroStart: 03-08-2025 End: 27-75-8216Hijqjdn encounter procedureChang Russell MD-[facility] Gastro Work Phone: Start: 66-21-9483Elkqikcnbs RecurringTalib Hargrove MD-[facility] Acute Work Phone: Start: 96-70-3842vfbkpidhpfHur Yaser Al-Marrawi Facility:[facility] Dublintart: 14-33-6912Ggpyhwvdaz Recurring Talib Faustin MD-[facility] Acute Work Phone: Start: 02-22-2025 End: 21-75-5249zghdqvqlrbZpcaoh E Ross MD Work Phone: [facility] Work Phone: Start: 02-22-2025 End: 72-00-8111Rhmghbs encounter procedureBecky Crouch [facility] Ambulatory Work Phone: Start: 78-42-5187suucnonswzVNVTL [facility] Hospitaltart: 02-06-2025 End: 25-65-7869sfegjxkepcUTRL CHACKOUnFirelands Regional Medical Centertart: 01-18-2025 End: 00-48-5112Eyllin outpatient visit 15 minutesFredric H Itzkowitz DO Work Phone: [facility] Surgical AssociatesComment on above:Esophageal dysphagia (Primary Dx)Start: 01-18-2025 End: 34-64-2819pvnsowtagqEIKIGER H ITZKOWITZNot AvailableStart: 01-08-2025 End: 08-22-7745Egjsrt outpatient visit 15 minutesFredric H Itzkowitz DO Work Phone: [facility] Surgical AssociatesComment on above:Esophageal dysphagia (Primary Dx); Carcinoma of oropharynx (HCC)Start: 01-08-2025 End: 70-99-6073cnoyjwixocNLDFYMC H ITZKOWITZNot AvailableStart: 12-26-2024 Registered [facility] Ramin Faustin MD-[facility] Acute Work Phone: Start: 12-26-2024 End: 17-72-0381geufilewdgTatoco E Ross MD Work Phone: [facility] Work Phone: Start: 12-26-2024 End: 50-03-9357Ccunxoc encounter procedureBecky Crouch APRNNew Mexico Behavioral [facility] Work Phone: Start: 42-86-2090mnplmduablEFDI [facility] Foundationtart: 12-11-2024 End: 03-12-9899Aojpaf outpatient visit 15 minutesMary Ly MD Work Phone: [facility] CenterComment on above: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 Vincent Medical Centertart: 12-05-2024 End: 87-96-4420ichtivfteuXDPS [facility] Foundationtart: 11-27-2024 End: 93-31-9514nnytflpgklNciyhq E. RossFacility:FT BellevueStart: 11-23-2024 Registered RecurringTalib Faustin MD-[facility] Work Phone: Start: 11-23-2024 End: 51-71-4400veozrhicwmBprhrv E Ross MD Work Phone: [facility] Work Phone: Start: 11-23-2024 End: 58-79-2262Ooyshvj encounter procedureTalib Faustin MD-[facility] Work Phone: Start: 11-23-2024 End: 01-60-4265Gmhvpte encounter procedureDebora [facility] Palliat CareStart: 11-23-2024 End: 67-61-4891suycqsrsjdSvimxi E Ross MD Work Phone: [facility] Work Phone: Start: 73-11-1834Lod-patient / Non-visitDebora [facility] Palliative Work Phone: Start: 11-21-2024 End: 26-36-1283wzuvngnltuAmjnlr E. RossFacility:FT FM BellevueStart: 2024 End: 82-96-6154pkgbkzutseQZHumza Patecility:FT BellevueStart: 10-12-2024 End: 00-40-1806uegydwhcfgIVDarius Patecility:[facility] ueStart: 10-11-2024 End: 68-39-2228Qkthvj follow up visit related to original pxFredric Jane Itzjackie DO Work Phone: noms ST GENSComment on above:Esophageal dysphagia (Primary Dx); Carcinoma of oropharynx (CMS/HCC)Start: 10-11-2024 End: 15-15-5676cojnsfnoaeKHPYZDP Jane ITYASMINNot AvailableStart: 10-03-2024 End: 23-59-8754Npqgyobl Result EncounterFredric H Itzterencewitz DO Work Phone: noms External Department UnsolicitedStart: 10-03-2024 End: 67-33-6384Hfprhshe Result EncounterFredric H Itzrosetz DO Work Phone: noms External Department UnsolicitedStart: 10-03-2024 End: 03-22-4925Gtikkxpjb to same day surgery centerFredric Jed DO-[facility] HospitalStart: 10-03-2024 End: 82-63-8128qdzijxxnskOgngew E RossFacility:[facility] Start: 09-28-2024 End: 44-35-4913wkrbirebkdCNHumza Patecility:FT BellevueStart: 09-28-2024 End: 44-41-6743Zpmmfh flowsheetAngela Lowe PA Work Phone: ANA BELLEVUEStart: 09-28-2024 End: 64-54-9899Onbuas flowsheetAngela Lowe PA Work Phone: A[facility] BELLEVUEStart: 09-28-2024 End: 23-24-3752Dofdvl outpatient visit 15 minutesAngela Lowe PA Work Phone: aNA BELLEVUEComment on above:Vertigo (Primary Dx); Lumbar radiculopathy; Chronic bilateral low back pain, unspecified whether sciatica present; Degenerative disc disease, cervical; Migraine without aura and without status migrainosus, not intractable (CMS/HCC); PolyneuropathyStart: 09-28-2024 End: 04-23-3652xwfblyxdfuNORJKD LOWENot AvailableStart: 09-27-2024 End: 50-52-8960Apxfpl outpatient new 45 minutesFredric H Itzkowitz DO Work Phone: noms GENSComment on above:Esophageal dysphagia (Primary Dx)Start: 09-27-2024 End: 18-12-3927icxxpcznnqHMLXPZQ H ITZKOWITZNot AvailableStart: 09-26-2024 End: 67-75-4358xiqxtuvqyqZfvtdl E Ross MD Work Phone: [facility] Work Phone: Start: 09-26-2024 End: 97-97-4578Huwwvrz encounter procedureSleno Cooper MD Work Phone: [facility] GroupDel [facility] Work Phone: Start: 30-52-0600Olizydbynf RecurringDemetrius Cooper MD Work Phone: [facility]-Cancer Center Acute Work Phone: Start: 09-20-2024 End: 88-82-6793Wmeapnbrt department patient visitSleno Cooper MD Work Phone: [facility]-Emergency Room Work Phone: Start: 09-14-2024 End: 41-80-4754zvhchbjabbVC Demetrius CooperFacility:FT [facility] BellevueStart: 09-11-2024 End: 08-73-9942Hwtfyb outpatient visit 15 minutesMaalexx Ly MD Work Phone: [facility] CenterComment on above: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); Dysphagia, unspecified typeStart: 09-11-2024 End: 27-55-0488uxlogfajltHCLXTWW N [facility] Hospitaltart: 09-11-2024 End: 88-74-2146Whugyeq encounter procedureSleno Cooper MD Work Phone: [facility] Work Phone: Start: 51-78-6636Ctjytbvjyt RecurringDemetrius Cooper MD Work Phone: [facility] Acute Work Phone: Start: 09-07-2024 End: 02-97-3182Vphxldo encounter procedureSleno Cooper MD Work Phone: [facility] Ambulatory Work Phone: Start: 09-04-2024 End: 98-32-1378jfasfxtjgmTRXU [facility] Foundationtart: 08-30-2024 End: 48-61-4070Idt Drop offSleno Cooper [facility] Start: 08-30-2024 End: 97-88-5800vagvblqijvZcuxhm E. RossFacility:FTMCStart: 08-24-2024 End: 22-41-1964glssyxhbgbTffpud E. RossFacility:FT FM BellevueStart: 08-23-2024 End: 56-81-1251Rvpgttr encounter procedureSleno Cooper MD Work Phone: [facility] Ambulatory Work Phone: Start: 08-22-2024 End: 32-98-2015dbuhabtfwcWxhnxv E. RossFacility:CD:[id number]: 08-21-2024 Non-patient / Non-visitSleno Cooper MD Work Phone: [facility] Ambulatory Work Phone: Start: 13-79-1729Uvq-patient / Non-visitSleno Cooper MD Work Phone: [facility] Physician [facility] Dis Work Phone: Start: 62-48-3340bpvubwpytiRukcsl E Ross Facility:[facility] Dublintart: 08-20-2024 End: 66-69-5474Nndfqpojcq and management of inpatientSleno Cooper MD Work Phone: [facility] Work Phone: Start: 31-07-7005Xdpjhbeagx Philly Cooper MD Work Phone: [facility] Work Phone: Start: 74-63-6615Pix-patient / Non-visitSleno Cooper MD Work Phone: [facility] Physician [facility] Ambulatory Work Phone: Start: 69-51-1776bxxyzpdabaZgvoaoha R Isaac Facility:[facility] Dublintart: 15-66-6118Fltoaowgwq Omid Cooper MD Work Phone: [facility]-Speech Therapy Cancer CenterStart: 50-78-8710Vgu-patient / Non-visitSleno Cooper MD Work Phone: [facility] Physician [facility] Palliative Work Phone: Start: 15-86-2651Zmbdrvthfc Philly Cooper MD Work Phone: [facility] Work Phone: Start: 08-16-2024 End: 69-66-9716Eahyzfx encounter procedureSleno Cooper MD Work Phone: [facility] Palliat CareStart: 08-16-2024 End: 93-19-2343smzjfketmiUixtcp E Ross MD Work Phone: [facility] Work Phone: Start: 43-67-1604Xyw-patient / Non-visitSleno Cooper MD Work Phone: [facility] Physician [facility] WesleyHeart Rhythm ClinicStart: 92-64-5128Dsg-patient / Non-visitSlneo Cooper MD Work Phone: [facility] Ambulatory Work Phone: Start: 43-91-0047Iaxrotcmsx Philly Cooper MD Work Phone: [facility] HospitalSpeech Therapy Cancer CenterStart: 08-09-2024 End: 62-64-2417Nsoehju encounter procedureSleno Cooper MD Work Phone: [facility] Ambulatory Work Phone: Start: 84-01-7707Bmi-patient / Non-visitSleno Cooper MD Work Phone: [phone] Work Phone: Start: 08-09-2024 End: 36-72-0703Lzwrxpi encounter procedureSleno Cooper MD Work Phone: [facility] Palliat CareStart: 08-09-2024 End: 30-23-8303qrrapeankoHwmvvy E Ross MD Work Phone: [facility] Work Phone: Start: 41-59-5492Gae-patient / Non-visitSleno Cooper MD Work Phone: [facility] Work Phone: Start: 20-90-5098Nuukmhjbuw Philly Cooper MD Work Phone: [facility] CenterStart: 56-24-1857Jxy-patient / Non-visitSleno Cooper MD Work Phone: [facility] Work Phone: Start: 74-15-1772Phz-patient / Non-visitSleno Cooper MD Work Phone: [facility] Rhythm ClinicStart: 08-02-2024 End: 34-11-5231Ytesarm encounter procedureSleno Cooper MD Work Phone: [facility] CareStart: 08-02-2024 End: 28-22-9514wmtqdxugpjKqwzem E Ross MD Work Phone: [phone] Work Phone: Start: 58-31-0319Dpq-patient / Non-visitSleno Cooper MD Work Phone: [phone] Work Phone: Start: 01-17-3080Ickyjuigsv Philly Cooper MD Work Phone: [facility]-Speech Therapy Cancer CenterStart: 02-25-9253Oam-patient / Non-visitSleno Cooper MD Work Phone: [facility] Work Phone: Start: 07-26-2024 End: 46-47-6192mzxfmrdhktGDIRVV VARGAS VNot AvailableStart: 26-30-4742Rnysqdvtqv Philly Cooper MD Work Phone: [facility] Work Phone: Start: 92-80-2461Dxw-patient / Non-visitSleno Cooper MD Work Phone: [phone] Work Phone: Start: 07-26-2024 End: 64-08-9980Ngnghsrv Magali Cooper MD Work Phone: [facility] CareStart: 07-26-2024 End: 32-15-6549ibgcywnsldKotiyn E Ross MD Work Phone: [facility] Work Phone: Start: 07-26-2024 End: 70-61-4382Ntumbip encounter procedureSleno Cooper MD Work Phone: [facility] Work Phone: Start: 25-63-3669Osm-patient / Non-visitSleno Cooper MD Work Phone: [facility]ician Group-Heart Rhythm ClinicStart: 33-39-0866Ksc-patient / Non-visitSleno Cooper MD Work Phone: [facility] Ambulatory Work Phone: Start: 70-21-4254rwhqvvgpkwMounaiz Stevens Facility:[facility] - Dublintart: 54-36-3657Oawdzohrxc Recurring Demetrius Cooper MD Work Phone: [facility]-Speech Therapy Cancer CenterStart: 12-30-8622Iun-patient / Non-visitSleno Cooper MD Work Phone: [facility] Ambulatory Work Phone: Start: 07-20-2024 End: 70-12-8418Dkimrye encounter procedureSleno Cooper MD Work Phone: [facility] Amb[facility] Work Phone: Start: 07-19-2024 End: 24-98-8448dpolcfaxmrIBBCJCQCleveland Clinic CenterStart: 54-39-1648Kmq-patient / Non-visitSleno Cooper MD Work Phone: [facility] Group-Heart Rhythm ClinicStart: 07-19-2024 End: 16-86-9498Ioyxnlgs ReferredDemetrius Cooper MD Work Phone: [facility] CareStart: 07-19-2024 End: 90-64-4322Oqiwpww encounter procedureSleno Cooper MD Work Phone: [facility] CareStart: 07-19-2024 End: 33-08-8680qofyrknhdgGnivjlbxj M McGrawFacility:[facility] - Dublintart: 07-17-2024 End: 41-41-8928Imnzdjhl Result EncounterMatteo Melo MD Work Phone: noms External Department UnsolicitedStart: 07-17-2024 End: 87-02-5338Knwwwlol Result EncounterMatteo Bell MD Work Phone: noms External Department UnsolicitedStart: 07-17-2024 Registered Philly Cooper MD Work Phone: [facility] Work Phone: Start: 07-17-2024 End: 73-77-8230Syfjgrpub to same day surgery centerSleno Cooper MD Work Phone: [facility]-Surgery Center Main CampusStart: 07-17-2024 End: 43-29-3631fmawraxoxmTcvbnk E Ross MD Work Phone: [facility] Work Phone: Start: 80-45-8750Let-patient / Non-visitSleno Cooper MD Work Phone: [facility] Ambulatory Work Phone: Start: 13-78-9249Hsm-patient / Non-visitSleno Cooper MD Work Phone: [facility] Amb[facility] Work Phone: Start: 04-53-0966Iev-patient / Non-visitSleno Cooper MD Work Phone: [facility] Physician [facility]-Heart Rhythm ClinicStart: 49-36-5710Sptueqhaet Philly Cooper MD Work Phone: [facility] Work Phone: Start: 92-15-9196Ann-patient / Non-visitSleno Cooper MD Work Phone: [facility] GroupAt[facility] Work Phone: Start: 07-12-2024 End: 91-95-2726Juickuc encounter procedureSleno Cooper MD Work Phone: [facility] Physician [facility] Work Phone: Start: 07-12-2024 End: 04-01-4024cmkhjmafbmYeywxc E Ross MD Work Phone: [facility] Work Phone: Start: 65-15-4613Xuj-patient / Non-visitSleno Cooper MD Work Phone: [facility] Ambulatory Work Phone: Start: 07-10-2024 End: 93-42-7617szgbewmryiQSFTFisher-Titus Medical Centertart: 56-14-6859Kpg-patient / Non-visitSleno Cooper MD Work Phone: [facility] Physician [facility] Ambulatory Work Phone: Start: 38-48-3937Cho-patient / Non-visitSleno Cooper MD Work Phone: [facility] Physician [facility]-Heart Rhythm ClinicStart: 00-47-8816Fvw-patient / Non-visitSleno Cooper MD Work Phone: [facility] Physician [facility] Palliative Work Phone: Start: 07-06-2024 End: 09-15-8978Yaxwqnxb Magali Cooper MD Work Phone: [facility] CareStart: 07-06-2024 End: 87-89-0140Ieimspw encounter procedureSleno Cooper MD Work Phone: [facility] PalliativeStart: 07-06-2024 End: 19-07-1820xupmmaqtdfAqebpq E Ross MD Work Phone: [facility] Work Phone: Start: 82-63-9763Mkr-patient / Non-visitSleno Cooper MD Work Phone: [facility] Phys[facility] GroupCancer Center Ambulatory Work Phone: Start: 07-04-2024 End: 72-44-8102ogtrzglcozPugvoz E. RossFacility:FT FM BellevueStart: 07-03-2024 End: 77-72-4272Srl Drop offMhd Ramin JaredDelvin [facility] Start: 07-03-2024 End: 72-58-3540Wzmcssrc ReferredDemetrius Cooper MD Work Phone: [facility]-Surgery Center [facility] HospitalStart: 07-03-2024 End: 82-21-1819Rdg Drop offSleno Cooper [facility] Start: 07-03-2024 End: 21-43-6097anbckmokduVprqqv E. RossFacility:FTMCStart: 06-23-2024 End: 90-34-3458Dhzoabp encounter procedureIsabel Romano AUD Work Phone: noms AUDComment on above:Sensorineural hearing loss, bilateral (Primary Dx); Tinnitus, bilateralStart: 06-23-2024 End: 78-06-2079iopdopujyxZAYBNGK S WRIGHTNot AvailableStart: 06-23-2024 End: 72-92-6166Kfaavp flowsJudith Romano AUD Work Phone: noms AUDStart: 06-23-2024 End: 02-12-4862Yraxkc Zoraida Romano AUD Work Phone: noms AUDStart: 06-22-2024 End: 03-79-9038Bevnnxe encounter procedureSleno Cooper MD Work Phone: [facility]-Pre-Surgical Testing Work Phone: Start: 06-22-2024 End: 60-91-0775ntfkrcbteoBvdara E Ross MD Work Phone: [facility] Work Phone: Start: 54-55-0613Aymxalkxi for preprocedural laboratory examinationMatteo Woody [facility] Physician GroupStart: 06-22-2024 End: 04-58-0885Eblhefxl Result EncounterMatteo Melo MD Work Phone: noms External Department UnsolicitedStart: 06-22-2024 End: 04-89-1296Doilzbcl Result EncounterMatteo Bell MD Work Phone: noms External Department UnsolicitedStart: 06-20-2024 End: 36-04-4956Yrvdee outpatient new 45 minutesMatteo Melo MD Work Phone: noms ST GENSComment on above:Poor intravenous access (Primary Dx); Carcinoma of oropharynx (CMS/HCC)Start: 06-20-2024 End: 72-35-3146mftzdkjtdkUEPMCK VARGAS VNot AvailableStart: 06-29-4899Rzw- patient / Non-visitSleno Cooper MD Work Phone: [facility] Work Phone: Start: 16-83-7278Polbczrqoh Philly Cooper MD Work Phone: [facility]-Cancer Center Acute Work Phone: Start: 06-14-2024 End: 16-40-4292hcjjxtrbgzUjtalr E Ross MD Work Phone: [facility] Work Phone: Start: 06-14-2024 End: 12-26-0130Zxywdwp encounter procedureSleno Cooper MD Work Phone: [facility] Ambulatory Work Phone: Start: 18-12-4173Buozvxrehh Philly Cooper MD Work Phone: [facility] Work Phone: Start: 06-14-2024 End: 91-23-3566abpcngedofIdmypv E Ross MD Work Phone: [facility] Work Phone: Start: 06-14-2024 End: 03-47-3710Suwokvs encounter procedureSleno Cooper MD Work Phone: [facility] Amb[facility] Work Phone: Start: 06-06-2024 End: 88-70-9759jbqdozoimyPXYIFisher-Titus Medical Centertart: 06-05-2024 End: 91-93-2635Eykykyljeq hospital visit by physicianCmc Ultrasound 3[facility] HospitalComment on above:Enlarged submental lymph nodeStart: 06-05-2024 End: 16-01-8845ezrcybmuuaRVUPOGS N [facility] Hospitaltart: 05-30-2024 End: 94-66-0041Pucbfv follow up visit related to original Mckenzie Ly MD Work Phone: [facility] CenterComment on above: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); Metastasis to cervical lymph nodeStart: 05-30-2024 End: 49-49-0894wnhvhxtthcJJOUSOX N [facility] Hospitaltart: 05-15-2024 End: 77-46-0620Rdxxwllfhf hospital visit by physicianRad External FilmEF RAD EXTERNAL FILM VIRTUALComment on above:ArrivedStart: 05-15-2024 End: 26-18-5006bixxhmhjsjELBZEOY N [facility] Hospitaltart: 05-11-2024 End: 49-39-5523Ljyereknwt hospital visit by Yajaira Ly MD Work Phone: [facility] Johnny ORComment on above: 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); Oral lesion; Malignant neoplasm of floor of mouthStart: 04-07-2024 End: 78-42-6664xgsclnoejbECQJEGN N [facility] Hospitaltart: 03-29-2024 End: 88-51-8682Wmmqaq Kilo Ham MD Work Phone: [facility] CI ENTStart: 03-29-2024 End: 97-03-2572Wfhpwryony Ham MD Work Phone: noms CI ENTStart: 03-29-2024 End: 71-67-8449Xaknrl outpatient visit 15 minutesLuc Ham MD Work Phone: noms CI ENTComment on above: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) (Primary Dx); Ulcer of gingivaStart: 03-29-2024 End: 68-84-3266mzjqfwixedUFYVNT Jane HAMNot AvailableStart: 03-27-2024 End: 89-93-7665kjjuqzqkulOGVUOB OPHELIA HAMFacility:[facility] Hospitaltart: 03-27-2024 End: 60-42-4804Tjvomyltjm hospital visit by physicianArrival Time Radiology Work Phone: Radiology Pet CTStart: 03-23-2024 End: 35-05-6558vtulpipficXgzbbzvp Talal SarminiFacility:[facility] DHStart: 03-23-2024 End: 06-70-5379Lxfrrqc encounter procedureMuhammad Talal Sarmini [phone]-QoxalUk Healthcare [facility] Start: 03-08-2024 End: 37-00-4440Vmzkls flowsheetLuc Ham MD Work Phone: noms CI ENTStart: 03-08-2024 End: 92-64-5831Beseqh Kilo Ham MD Work Phone: noms CI ENTStart: 03-08-2024 End: 92-91-2392Ofvqdn outpatient visit 40 minutesLuc Ham MD Work Phone: noms CI ENTComment on above:Oral ulcer (Primary Dx); 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)Start: 03-08-2024 End: 11-36-6759yhbqqeclloPZJGVI H FATOUMATANot AvailableStart: 03-06-2024 End: 00-07-4614Yvyyjgjwu encounterHisara Ham MD Work Phone: noms ENT NORWALKStart: 02-29-2024 End: 46-91-6290Qpqrkcsao Result EncounterLuc Ham MD Work Phone: noms External Department UnsolicitedStart: 02-29-2024 End: 36-29-4304Mrqdcqnli Result EncounterLuc Ham MD Work Phone: noms External Department UnsolicitedStart: 02-29-2024 End: 24-55-0518voeooybklvHI Samuel E Ross Work Phone: [facility] Work Phone: Start: 02-29-2024 End: 75-63-2590Bbwhewql Referred Demetrius Cooper Work Phone: [facility]-LAB Path Spec [facility]ft[facility] HospStart: 02-16-2024 End: 83-68-7687Nlgamv outpatient visit 25 minutesLuc Ham MD Work Phone: noms CI ENTComment on above:LAD (lymphadenopathy) of right cervical region (Primary Dx)Start: 02-16-2024 End: 01-17-7713cwsckacsswYDWMPH H TIMMISNot AvailableStart: 02-16-2024 End: 40-68-9660Jhfnsc flowsheetAngela Lowe PA Work Phone: [facility] [address] R[address]TEStart: 02-16-2024 End: 28-66-3645Inrhsa flowsheetAngela Lowe PA Work Phone: noms [address] R[address]TEStart: 02-16-2024 End: 94-21-5892Pwoggl outpatient visit 15 minutesAngela Lowe PA Work Phone: noms [address] STATE ROUTEComment on above:Migraine without aura and without status migrainosus, not intractable (CMS/HCC) (Primary Dx); Vertigo; Lumbar radiculopathy; Neck pain; Degenerative disc disease, cervical; PolyneuropathyStart: 02-16-2024 End: 40-33-4215mviocpotvxIMQRHJ LOWENot AvailableStart: 02-14-2024 End: 82-09-0036mjjitcjgyaXPWSMP H TIMMISNot AvailableStart: 02-02-2024 End: 78-85-4693Mbnjqfhjn encounterToms Pino CASON Work Phone: General SurgeryComment on above:MRI Appointment; Art History Instructor - OtherStart: 02-01-2024 End: 79-38-0721Wysjzi flowsheetLuc Ham MD Work Phone: noMS CI ENTStart: 02-01-2024 End: 49-51-0785Zwwhrt Kilo Ham MD Work Phone: noms CI ENTStart: 02-01-2024 End: 88-92-3086Zzlmtm outpatient new 30 minutesLuc Ham MD Work Phone: noms CI ENTComment on above:Parotid mass (Primary Dx) Start: 02-01-2024 End: 14-32-2524AbcflaHhtl Augustin MD Work Phone: General SurgeryStart: 01-10-2024 End: 37-11-2896vphdgmweucGbczzi E. RossFacility:FT FM BellevueStart: 11-09-2023 End: 78-65-8107Caislsc encounter procedureMuhammad Talal Sarmini [facility] Start: 10-21-2023 End: 72-27-1431Trtgmhj encounter procedureMuhammad Talal Sarmini [phone]-WrsoaUk Healthcare [facility] Start: 09-17-2023 End: 61-64-7785Mzzkvjz encounter procedureAnjali Ruby [phone]-NcjvzUk [facility] Start: 09-02-2023 End: 07-19-6839zvhyaidszwAghtsialz [facility] Work Phone: Start: 09-02-2023 End: 42-37-4015Qkvsrov encounter procedureF[facility] Physician GroupLegacy [facility] Work Phone: Start: 07-27-2023 End: 80-31-5819Ukfgrla encounter procedureKeikocritical access hospital Physician Group-[facility] Care Macario Work Phone: Start: 78-53-0145Gsfixs outpatient visit 25 minutes Gisele [facility] OutPtStart: 05-31-2023 End: 63-07-1911kxfusueriwDN Demetrius Cooper Work Phone: [facility] Work Phone: Start: 05-31-2023 End: 05-60-2711Jdpnqnt encounter Tomy Cooper Work Phone: [facility]-Sleep Lab Work Phone: Start: 05-25-2023 End: 71-07-3720Zqiselj encounter procedureAnjali Ruby [phone]-OsnymUk [facility] Start: 62-13-4876Oovtnyohj encounterToms Pino CASON Work Phone: General SurgeryComment on above:Received Outside Medical RecordsStart: 04-01-2023 End: 11-71-3431eulnurcvnmRWSM AUGUSTINFacility:[facility] Hospitaltart: 04-01-2023 End: 01-47-7109Pphxpdt encounter procedureToms Pino CASON Work Phone: General SurgeryComment on above:IPMN (intraductal papillary mucinous neoplasm) (Primary Dx)Start: 03-10-2023 End: 67-45-4489Xafizmd encounter procedureAnjali Ruby [facility] Start: 03-10-2023 End: 85-43-7296Ecvgdob encounter procedureBelina Ruby [phone]-FfjivUk [facility] Start: 02-25-2023 End: 44-50-2261Ockixqu encounter procedureBelina Ruby [phone]-XslyyUk [facility] Start: 02-16-2023 End: 57-69-3168qhcbawrogeMM Samuel E Ross Work Phone: [facility] Work Phone: Start: 02-16-2023 End: 47-86-6986Tezxitj encounter procedureMD Demetrius Cooper Work Phone: [facility]-MRI Main [place] Work Phone: Start: 45-52-9800Hqpvdf outpatient visit 25 minutes [facility] SouthStart: 01-29-2023 End: 96-47-7717cquxcgdfsmFQ Samuel E Ross Work Phone: [facility] Work Phone: Start: 01-29-2023 End: 36-67-2473Duibrsc encounter procedureMD Demetrius Cooper Work Phone: [facility]-Sleep Lab Work Phone: Start: 37-97-1147wiccqlvqjyExapmrqt:9090Start: 01-27-2023 End: 52-71-0996ewrmtcyimjNL Samuel E Ross Work Phone: [facility] Work Phone: Start: 01-27-2023 End: 59-04-0591Dajjsit encounter procedureMD Demetrius Cooper Work Phone: [facility]-Pacemaker CheckStart: 01-12-2023 End: 20-60-4194Eovujgp encounter procedureBelina Ruby [phone]-RhujuUk Healthcare [facility] Start: 12-17-2022 End: 29-78-1657Txohsbd encounter procedureBelina Ruby [facility] Start: 12-09-2022 End: 12-38-7625quvzduzraeLS Demetrius Cooper Work Phone: [facility] Work Phone: Start: 12-09-2022 End: 34-94-4145Ktvyjse encounter procedureMD Demetrius Cooper Work Phone: [facility]-Sleep Lab Work Phone: Start: 11-23-2022 End: 69-73-0708Ige Drop offSleno Cooper [facility] Start: 53-14-6165Wsnseh outpatient visit 15 minutes [facility] SouthStart: 10-13-2022 End: 29-85-3641muvgbmunbmSF Mg [place] Work Phone: [facility] Work Phone: Start: 10-13-2022 End: 55-94-0201Hibjkbw encounter procedureMD Mg [place] Work Phone: [facility]-Sleep Lab Work Phone: Start: 09-29-2022 End: 55-16-1291wdfrqrkmbcYL EDY CARNEYFacility:R8Xkwea: 09-24-2022 End: 35-70-5436fpyarxfyhaGI MG JOHNSRFacility:L9Vibtq: 09-22-2022 End: 62-24-3088Jlehhervc department patient visitGordy Sánchez [facility] Start: 55-86-5076Efidhu outpatient visit 15 minutes [facility] ClydeStart: 09-22-2022 End: 79-74-2524ziwjfclobcSIJKZFONQBVM LAKSHMIPATHY .[facility] [employer]ple Other Start: 08-25-2022 End: 35-21-8682qlndfqtgpaYMGHROUBOOSO LAKSHMIPATHY .Facility:U0Sfdrs: 08-12-2022 ambulatoryFacility:9090Start: 08-12-2022 End: 32-85-5328xptwclawbjCV Marc Naderer Work Phone: [facility] Work Phone: Start: 08-12-2022 End: 43-98-4260Hcoxhvg encounter procedureMD Mg [place] Work Phone: [facility]-MRI Main [place] Work Phone: Start: 08-11-2022 End: 97-07-3963zmscgxcxfrMUIIMJMFUYLL LAKSHMIPATHY .Facility:U0Aklmr: 07-29-2022 Office outpatient new 60 minutesDavid [facility] Start: 07-29-2022 End: 82-62-7936xotpesxdtmGH Marc Naderer Work Phone: [facility] Work Phone: Start: 07-29-2022 End: 25-12-7935Zqoifrc encounter procedureMD Mg [place] Work Phone: [facility]-Sleep Lab Work Phone: Start: 07-23-2022 End: 15-09-1743kjjyqqbccfGAKG SOLIS .Facility:X5Blpra: 07-22-2022 End: 16-60-0086cpgoskqhnhZJOLD D GUNDERSEN [facility] CLINICSFacility:A0Wtvcm: 07-21-2022 ambulatoryFacility:9090Start: 07-21-2022 End: 54-34-1784heaqbhcflmWO Marc Naderer Work Phone: [facility] Work Phone: Start: 07-21-2022 End: 37-70-4892Ozfezdn encounter procedureMD Mg [place] Work Phone: [facility]-Pacemaker CheckStart: 06-18-2022 End: 63-38-7284ddyphxtvyaDMFLVVKY CULLENFacility:P1Playd: 06-16-2022 End: 82-24-1371bdagcaaijkHNBGGMEF CULLENFacility:G1Kamsj: 06-11-2022 End: 90-89-4558psemozurdmQZSUP D HIGHLANDERFacility:D8Qmkqv: 05-26-2022 End: 49-23-0158Wlncxlz encounter procedureDequan Son GRYASON [facility] Start: 04-16-2022 End: 03-31-2009pghawecogkCF ERWIN Bell WESTFacility:N4Ykhjn: 70-58-1758dnlmgnhqslUV AMANDA CLANCY .Facility:X9Dkdcm: 03-12-2022 End: 12-82-1523ldnreentfeUFLCC D HIGHLANDERFacility:A1Fhoeh: 03-10-2022 End: 76-67-4171dbpztgukdsJFFCBNKW PERRYFacility:L0Czyot: 03-06-2022 End: 40-83-4786iphihvtdoaQX DOCTOR MISCFacility:K0Ceonp: 12-25-2021 End: 23-74-5832tzjpjwjkbrOYMU CLIFTON .Facility:N3Yiqcv: 12-01-2021 End: 56-10-8376noyoqcqoidITPSC D HIGHLANDERFacility:X9Dxcdk: 11-29-2021 End: 95-48-3503bpelbnpechQaexdhcss [place] Other [place] [employer] Other Start: 86-40-6634Geztcy outpatient visit 15 minutes [facility] ClydeStart: 11-13-2021 End: 77-78-4019zethqdijiwSTYK LACOURFacility:U1Uiiwp: 09-04-2020 End: 85-43-3205Isgwyqs encounter procedureParam Cosme Work Phone: -MRI Main CampusStart: 08-15-2020 End: 22-00-3527Hbypepe encounter procedureParam Cosme-Pacemaker CheckStart: 08-30-2019 End: 01-29-4057Ctdaitt encounter procedureEHAB A ELTAHAWYFacility:[facility] Procedures DateProcedureProcedure DetailPerforming ClinicianStart: 01-28-1592YX of abdomen with contrastSleno Cooper MD Work Phone: Start: 77-04-0786Qzhlvdzy emission tomography with computed tomographyDemetrius Cooper MD Work Phone: Start: 02-67-5713Sssgi gastrointestinal endoscopy for directed placement of percutaneous gastrostomy tubeSleno Cooper MD Work Phone: Start: 37-66-0152TSPXGEU POCT GLUCOMETERSFredric H Itzkodinesh DO Work Phone: Start: 61-27-2936Oidzkndc tomography of abdomen and pelvis with contrastSleno Cooper MD Work Phone: Start: 13-74-8759Tzgwgj-up visitFollow-upMADELYN N STEVENSStart: 43-30-2900DM of chest without contrastSleno Cooper MD Work Phone: Start: 55-24-4891Mkulq chest X-raySleno Cooper MD Work Phone: Start: 91-17-8908Jastmppf identified in Blood by CultureSleno Cooper MD Work Phone: Start: 57-14-1666Qoaitxettha Panel (PCR)Demetrius Cooper MD Work Phone: Start: 07-89-4928Drwyk chest X-raySleno Cooper MD Work Phone: Start: 68-08-4525Lbdiwtm venous cannula insertion Demetrius Cooper MD Work Phone: Start: 67-01-3567UW Infusaport Insertion/Removal (Not Applicable)Demetrius Cooper MD Work Phone: Start: 32-98-7125AQIBPNF POCT GLUCOMETERSMatteo Melo MD Work Phone: Start: 14-15-0576FSNUJLBA FUNCTION TESTSIsabel PALUMBO Work Phone: start: 91-35-4026Inykb metabolic panel calcium total Matteo Melo MD Work Phone: Start: 14-99-2785Xwzfdkwn blood count with white cell differential, automatedMatteo Melo MD Work Phone: Start: 77-89-1797Kd guidance needle placement img s&i Mary Ly MD Work Phone: Start: 75-69-2931Rigqa Interpretation of outside study Mary Ly MD Work Phone: Start: 16-34-7155Ruwmrmq quantitative blood xcpt reagent stripMaalexx Ly MD Work Phone: Start: 44-37-4121FGIBR OXIMETRY, CONTINUOUSDelvis Santana MD Work Phone: Start: 68-79-8676Jgeokly quantitative blood xcpt reagent stripMaalexx Ly MD Work Phone: Start: 02-27-5065WQGIR/VERIFY ABORHCjuliane Munoz MD Work Phone: Start: 47-00-9830Okmyh typing serologic rh (d)Gabo Munoz MD Work Phone: Start: 45-85-9421Welt bld gluc mntr dev cleared fda spec home useCcf ProviderStart: 32-18-6965MZ BIOPSY LYMPH NODEHilary Jane Ham MD Work Phone: Start: 49-73-2817Tddtbsshykc procedureBelina Ruby Comment on above:done for painStart: 06-14-2023 ColonoscopyAnjali Ruyb Start: 78-28-6880DplrxwmnbybdsvaeepeluqxxblEmvb Steinmetz Start: 55-68-1661OJ abdomen wo conMD Demetrius Cooper Work Phone: Start: 53-66-1481LAE of cervical spine without contrastMD Mg [place] Work Phone: Start: 15-19-3621XF pre/post mri xrayMD Mg Bonnersilvia Work Phone: Start: 44-87-4939ZGG of right ankleMD Mg Guero Work Phone: Start: 59-66-0842ZID screeningPEASPIRUS STANLEY HOSPITALComment on above:Performed By: #### CBC #### [facility] [address] [place] [address] Dr. Ramsey SanchezStart: 37-77-5891EvexqiejzfxgxnpsohxwujvryrCgnqegs GALICIA Comment on above:2 diminunative ulcers, gastritis, gastric polyp, biopsyAngioplasty of blood vesselPagood samaritan hospitalk GALICIA Cardiac pacemaker procedurePatrick GALICIA Cataract (disorder)Gordy Sánchez Comment on above:bilateralCholecystectomyPagood samaritan hospitalk GALICIA ColonoscopyCommonwealth Regional Specialty Hospitalk GALICIA Hernia repairPatrick GALICIA ProstatectomyPagood samaritan hospitalk GALICIA TonsillectomyCommonwealth Regional Specialty HospitalFlower Orthopedics VasectomyPagood samaritan hospitalFlower Orthopedics Plan of Treatment DateCare ActivityDetailAuthorStart: 06-08-2025 End: 04-92-8938Goqkjja encounter fqaylepcv30/23/2026 1:30 PM EST Office Visit [facility] [address] [facility] [facility] 1[address] [place] [address] [place] [address] [place] [address] [facility] Servicestart: 04-11-2025 Creatinine measurementCreatinine [facility] TulsaStart: 83-46-5961Bfwgflpux measurementPotassium [facility] [facility] [place] Start: 04-03-2025 End: 54-57-5961Eurpfld encounter /18/2025 11:00 AM EST Office Visit LISANDRO GUZMANEVUE [address] [place] [phone] Missy Villarreal NP [address] [place] [address] LISANDRO MENDOZAtart: 23-14-0634Otpqecnqk vaccinationInfluenza Vaccine (#1) [facility] CampusStart: 17-60-2934Cgsqmmr referralLakehealth Tripoint Medical Center Work Phone: Start: 12-11-2024 End: 39-64-6519Xfvfkgo encounter bpygnpkme80/28/2025 10:00 AM EDT Office Visit [facility] [address] [facility] 2nd [place] [address] [place] [address] [place] [address] [facility]: 10-11-2024 End: 10-57-0227Mhlreik encounter waydpdzaq53/28/2025 2:15 PM EDT Office Visit [address] [facility] [address] [place] [id number] Veena Adkins DO [address] [facility] 150 [place] [address] GENSStart: 50-73-4218IqjebcovfSelect Medical OhioHealth Rehabilitation Hospital - Dublintart: 09-28-2024 End: 36-98-0892Eodsfid encounter procedureANA NICOLETTEComment on above:Arrived Start: 08-29-2024 End: 37-80-1548Fnyrzbd encounter procedureNOTHE SURGICAL HOSPITAL AT SOUTHWOODS ROUTEStart: 85-93-0258XvbbtpyptSelect Medical Ohio[facility] Rehabilitation Hospital - Dublintart: 56-43-1267Pvquqyysabyjnt of prophylactic treatmentSelect Medical [facility] Hospital - Dublintart: 08-21-2024 [facility]art: 83-34-4577TddrggrwoSelect Medical Ohio[facility] Rehabilitation Hospital - Dublintart: 70-51-6420Xfwanmdg to infectious diseases physicianSelect Medical Ohio[facility] Rehabilitation Hospital - Dublintart: 04-05-5920WjtsegjinSelect Medical Ohio[facility] Rehabilitation Hospital - Dublintart: 77-11-9532IC Chest WO contrastSelect Medical OhioHealth Rehabilitation Hospital - Dublintart: 08-20-2024 CT of chest without contrastCT chest wo [facility] Start: 72-53-6966Anwrepkp admissionSelect Medical Ohio[facility] Hospital - Dublintart: 48-85-8160InhqanqnxSelect Medical [facility] - Dublintart: 27-11-8550Iqavfmfw identified in Blood by CultureBlood CultureSelect Medical Ohio[facility] Rehabilitation Hospital - Dublintart: 34-37-3044NdfebdaikSelect Medical [facility] Hospital - Dublintart: 08-09-2024 End: 76-23-5817SkbwwfrkuSelect Medical [facility] Rehabilitation Hospital - Dublintart: 08-03-2024 End: 56-17-5897OotqsrvfiSelect Medical Ohio[facility] Rehabilitation Hospital - Dublintart: 23-74-2732FtlyqearrSelect Medical OhioHealth Rehabilitation Hospital - Dublintart: 99-41-3507GizohfkqhSelect Medical [facility] Hospital - Dublintart: 07-26-2024 End: 93-31-1775Lqqlfvh encounter slawleivh58/12/2025 10:15 AM EDT Office Visit [facility] [address] [facility] 150 [place] [phone] Matteo Melo MD [address] [facility] 150 [place] [address] GENSStart: 63-00-1984FxlgdrikgCommunity Memorial Hospital Start: 17-68-6987HydbnokvySelect Medical OhioHealth Rehabilitation Hospital - Dublintart: 68-00-4208JpsefvjxySelect Medical [facility] - Dublintart: 16-62-2498VtkmbzgmkSelect Medical [facility] - Dublintart: 07-11-2024 End: 63-64-4978Otpikfi encounter vmpmyhxol06/25/2025 1:15 PM EST Office Visit [facility] [facility] [address] [place] [phone] Matteo Mleo MD [address] [facility] 150 [place] [address] [facility]ITALt[facility]: 80-83-1108NaqacmmqpCommunity Memorial Hospital Start: 97-64-8913Ijcqvub venous cannula insertionOR Infusaport Insertion/Removal (Not Applicable)[facility]art: 01-90-2326FfypliianSelect Medical Ohio[facility] Rehabilitation Hospital - Dublintart: 06-23-2024 End: 48-81-5241Aacxbyo encounter procedureNOMS AUDComment on above:Arrived Start: 14-03-8119Hozcmja referralLakehealth Tripoint Medical Center Work Phone: Start: 06-05-2024 End: 78-65-1164Mynegpi encounter vhjdyjaho13/20/2025 1:00 PM EST Appointment [facility] [address] [place] [address] [facility] 05-30-2024 End: 10-41-9889Ovxvbzvetdjq consultation with ztgbxnk1405/30/2024 11:45 AM EST Telemedicine [facility] [address] [place] [address] [place] [address] [place] [address] [facility]: 05-11-2024 End: 36-37-0291Waexmbn incl fluor gdnce dx w/cell washg spx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 05/11/2024 7:17 AM ESTVirtual [facility]IANA Turner [place] Start: 05-11-2024 End: 50-78-2149Hyngpihhctpmb flexible transoral diagnosticEsophagoscopy Malignant neoplasm of floor of mouth 05/11/2024 7:17 AM ESTVirtual [facility]NA [facility] [place] Start: 05-11-2024 End: 39-41-8218Jyguyqcefmz hemiglossectomyGLOSSECTOMY, ROBOT-ASSISTED, ORAL APPROACH Malignant neoplasm of floor of mouth 05/11/2024 7:17 AM ESTVirtual [facility]ATIANA Turner ORStart: 05-11-2024 End: 01-13-6172Treqywsexjyk w/wo tracheoscopy dx except newbornDirect Laryngoscopy Malignant neoplasm of floor of mouth 05/11/2024 7:17 AM ESTVirtual [facility]ATIANA Turner ORStart: 05-11-2024 End: 76-83-9388Rrsparngzkcet primary/secondary age 12/>Tonsillectomy Malignant neoplasm of floor of mouth 05/11/2024 7:17 AM ESTVirtual [facility]ATIAAN Turner ORStart: 64-81-3625Qmefpeqqcp hospital visit by lcyhchbsc81/04/2024 Hospital Encounter [facility] [address] [address] [place] [address] [place] [address] [place] [address] [facility] Johnny ORStart: 04-07-2024 End: 77-77-1380Bbzftpx for Pre-Admission Testing VisitRequest for Pre-Admission Testing Visit Procedures Routine Oral lesion Malignant neoplasm of floor of mouth Expected: 04/07/2024 (Approximate), Expires: 04/07/2025[facility] Work Phone: Comment on above:Expected: 04/07/2024 (Approximate), Expires: 04/07/2025Start: 03-08-2024 End: 61-75-2596Qhuzwyg encounter procedureNOMS CI ENTComment on above:Arrived Start: 02-16-2024 End: 53-97-7330Lylbhke encounter jfzlnqvuy43/02/2024 2:30 PM EDT Office Visit [facility] [address] [place] [address] Luc Ham MD [address] [place] [address] N[facility]S CI ENTStart: 02-16-2024 End: 16-17-8065Vnoaqvl encounter procedureNOMS [facility]YE[facility] STATE ROUTEComment on above:ArrivedStart: 02-01-2024 End: 50-65-8345Euoektq encounter iyapisuxf76/17/2024 1:10 PM EDT Office Visit [facility] [address] [place] [address] Luc Ham MD [address] [place] [address] ArrivedNOMS CI ENTComment on above:ArrivedStart: 74-42-0492Itmbr-19 Vaccine ()Covid-19 Vaccine ()[facility]: 79-76-5517Gbtvz-19 Vaccine () Covid-19 Vaccine ()[facility]: 94-54-1858Wtbhb-19 Vaccine ()Covid-19 Vaccine ()[facility]: 73-06-5780Brofrihvp vaccinationInfluenza Vaccine (#1)[facility]: 05-04-4156Gjdnjyw Directive DiscussionAdvance Directive Discussion [facility]: 48-51-4142Jdftk-19 Vaccine ()Covid-19 Vaccine ()[facility]: 37-09-1223Aeulttnjo vaccinationInfluenza Vaccine (#1)[facility]: 10-40-6877cpqhoyhjab AmbulatoryFacility:Q3Yfjrn: 45-49-4279Qglrfio Directive DiscussionAdvance Directive DiscussionFort Hancock ClinicStart: 33-09-4022Fxkxagsewq Assessment Depression AssessmentHenry County Hospitaltart: 79-81-6806WMS of right ankleMR ankle RT wo [facility] CtrStart: 30-59-7019NL pre/post mri xrayXR pre/post mri xrayMansfield Hospital CtrStart: 45-17-9609Kqtlwlqinobf Vaccine: 65+ (2 - PPSV23 or PCV20)Pneumococcal Vaccine: 65+ (2 - PPSV23 or PCV20)[facility]: 73-88-6624Yrlxoufmlhbv Vaccine: 65+ (2 of 2 - PPSV23 or PCV20)Pneumococcal Vaccine: 65+ (2 of 2 - PPSV23 or PCV20)[facility]: 87-96-6026DOQ High Risk: (Elderly (60+) or Population) (1 - 1-dose 75+ series)RSV High Risk: (Elderly (60+) or Population) (1 - 1-dose 75+ series)[facility]: 72-94-2300QNJ Vaccine (1 - 1-dose 75+ series)RSV Vaccine (1 - 1-dose 75+ series)[facility]: 86-58-8542PSA Vaccine (1 - 1-dose 60+ series)RSV Vaccine (1 - 1-dose 60+ series) [facility]: 41-89-0919Klrjjywz Vaccine (1 of 2)Shingrix Vaccine (1 of 2)[facility]: 16-88-1902Uvqhmtzd ScreeningDiabetes ScreeningHenry County Hospitaltart: 90-98-8174WLiH/Tdap/Td Vaccines (1 - Tdap)DTaP/Tdap/Td Vaccines (1 - Tdap)[facility] CampusStevansville: 52-72-1685Iwddl microalbumin profileDTaP,Tdap,Td Vaccine (1 - Tdap)[facility]: 84-90-9296Cmgzr screening for proteinDiabetes: Urine Protein ScreeningMercy Health St. [facility]: 33-27-8874Clxslux ScreeningAnxiety ScreeningLakehealth Beachwood Medical Center Start: 33-09-3637Rribhwqfve ScreeningDepression ScreeningHenry County Hospitaltart: 24-08-2693Spgrlumh screeningDiabetes: Retinopathy ScreeningMercy Health St. [facility]: 36-99-1800Spyggb wellness visitWelcome to Medicare Visit [facility]: 59-76-3361TyuacoobvrsqxetsNeqpvuacwxsqnh [facility]: 56-44-9927Shjaldaiok A1c measurement Diabetes: Hemoglobin C0DHnkricfuqgOhioHealth Arthur G.[facility]. [facility], Cancer Center: 65-77-5743Nzzmu panelLipid PanelUnOhioHealth Arthur G.H. [facility], [facility], Cancer Center: 06-15-1940Medicare Annual Wellness VisitMedicare Annual Wellness Visit (AWV)[facility]: 51-18-3705Dnxau screening for proteinDiabetes: Urine Protein ScreeningUnTrumbull Regional Medical Center End: 59-53-4745Yweotgx device check - InpatientR[facility] Service Area Work Phone: Comment on above:Once for 1 Occurrences starting 05/11/2024 until 05/11/2024 End: 43-67-8627Aifjeyz device check - SurgeryUnTrumbull Regional Medical Center Work Phone: Comment on above:Once for 1 Occurrences starting 05/11/2024 until 05/11/2024omprehensive metabolic 1999 panel - Serum or Plasma [facility] HospitalComprehensive metabolic 1999 panel - Serum or PlasmaCommunity Memorial HospitalComprehensive metabolic 1999 panel - Serum or PlasmaCommunity Memorial HospitalComprehensive metabolic 1999 panel - Serum or PlasmaCommunity Memorial HospitalComprehensive metabolic 1999 panel - Serum or [facility] CenterCT Abdomen W contrast [facility]CT with contrast for radiotherapy planningCommunity Memorial HospitalCT with contrast for radiotherapy [facility] End: 00-51-8639Bcczjzf [Mass/volume] in Serum or PlasmaPOCT Glucose Point of Care Testing - Docked Device Routine Once (Lab) for 1 Occurrences starting until 05/11/2024[facility] Work Phone: Comment on above:Once (Lab) for 1 Occurrences starting 05/11/2024 until 05/11/2024Laryngoscopy w/wo tracheoscopy dx except Direct Laryngoscopy Oral lesion Malignant neoplasm of floor of mouthVirtual [facility] End: 82-34-1319SV Biliary ducts and Pancreatic duct WO and W contrast IVMRI PANC/TRISH WO/W IVCON Radiology Routine IPMN (intraductal papillary mucinous neoplasm) 1 Occurrences starting 02/01/2024 until 5CMercy [facility] Work Phone: Comment on above:1 Occurrences starting 02/01/2024 until 03/02/2025 End: 48-66-9903OB Unspecified body region 3D post processingMRI 3D POST PROCESSING Radiology Routine IPMN (intraductal papillary mucinous neoplasm) 1 Occurrences starting 02/01/2024 until 5CCleveland Clinic Mercy HospitalComment on above:1 Occurrences starting 02/01/2024 until 03/02/2025Patient Education [facility] Work Phone: Patient referralLakehealth Tripoint Medical Center Work Phone: Surgical pathology studySurgical Pathology Exam Pathology and Cytology Routine Oral lesion 04/07/2024 11:37 AM [facility] Work Phone: Surgical pathology [facility] Service Area Work Phone: Comment on above:Release Upon Ordering for 1 Occurrences starting 05/11/2024, 1 completed End: 74-05-9278Gysivajh pathology [facility] Area Work Phone: Comxots on above:Once (Lab) for 1 Occurrences starting 06/05/2024 until 06/05/2024, 1 completedMarshfield [facility] [place] Immunizations Immunization DateImmunizationNotesCare GsrxjdxaYurhrkvz31-33-0126xltgkuraa, high dose seasonal, preservative-free; Translations: [Fluzone High Dose Vaccine] Demetrius Cooper 065-3529Bpaumv-YembiUk [facility] [place] 14-37-6679osnlvejgg virus vaccine, unspecified formulationMary Ly MD Work Phone: [facility] Work Phone: [phone]rku vaccine recombinantMuhammad Sarmini 425-2952Geyqgz-TbeaoSuburban Community [facility] Ojivrw00-58-1946 pneumococcal 20-valent conjugate vaccineMuhammad Sarmini 819-8516Mkhbwi-FixzfLutheran Hospital07-08-2024 zoster vaccine recombinantMuhammad [facility] Phoenixmini 142-6869Amgufu-SbhpjLutheran Hospital12-13-2023 COVID-19 (PFIZER) 11Y and Leda Cooper MD Work Phone: [facility]11-27-2023influenza virus vaccine, unspecified formulationAnjali Ruby 684-7934Autccj-LnkinLutheran Hospital07-12-2022 Pfizer Haque Cap SARS-CoV-2 VaccinationLuc Ham MD Work Phone: [facility] HospitalInjzavszxj37-37-4860SGAJ-JcS-3 mRNA (uyzrazrjqnf-reuq-lrzjjjo) vaccineSleno Cooper 560-8406Gixzhl-YtdqgOhiohealth Dublin Methodist Hospital07-12-2022 SARS-CoV-2, UnspecifiedAngeserena [place] Work Phone: noBoone Hospital CenterCwsjfzybnb34-77-8501GHJC-VlB-1 (COVID-19) mRNA BNT-162b2 vaxSleno Cooper [phone]-ZnqriOhiohealth Dublin Methodist HospitalComment on above: Result Comment: 2022-11-03: HXH4775-64-8732IPYE-JcE-3, UnspecifiedLuc Ham MD Work Phone: NOBoone Hospital CenterOubctooyvw60-27-5444efqmwsuso virus vaccine, unspecified formulationSleno Cooper [phone]-TkpayOhiohealth Dublin Methodist Hospital10-05-2021 Influenza, injectable, Madin Newman Canine Kidney, preservative free, quadrivalentLuc Ham MD Work Phone: [facility] HospitalWjbbwiuqjk62-64-5624BJCU-EoV-0 (COVID-19) Ad26 vaccine, recombinantPaEssential Viewingk [employer] [facility] Forest HospitalRphnmlkv33-14-2938KCQQ-CiF-4 (COVID-19) mRNA BNT-162b2 vaxSyrinix [facility]02-11-2021SARS-CoV-2, UnspecifiedLuc Ham MD Work Phone: [facility] HospitalLhqbyikwlr55-81-5236MOQF-MvH-9 (COVID-19) Ad26 vaccine, recombinantEcorithmk [employer] GeneVeterans Affairs Medical Center San DiegoQxeeyput18-92-8188JNLF-OeC-0 (COVID-19) mRNA BNT-162b2 [employer] [facility]01-21-2021SARS-CoV-2, UnspecifiedLuc Ham MD Work Phone: [facility] HospitalWwrdrmmfyj33-92-5684ocuwwcabd virus vaccine, unspecified formulationSleno Cooper 014-4298Wqeage-XkdztOhiohealth Dublin Methodist Hospital09-30-2020 Influenza, injectable, Madin Newman Canine Kidney, preservative free, quadrivalentLuc Ham MD Work Phone: [facility] HospitalCnzssjrgxc20-34-3213tpaihvdrf, high dose seasonal, preservative-freeLuc Ham MD Work Phone: [facility] HospitalZeaoqeikew97-54-2771waojzvltq virus vaccine, unspecified formulationLuc Ham MD Work Phone: [facility] HospitalBdzbblqmdp52-23-2297rifhdzapr, injectable, quadrivalent, contains preservativeLuc Ham MD Work Phone: [facility] HospitalBphweazgnr35-95-5546ljngdbhpg, unspecified formulationSleno Cooper 256-4437Nlujpw-AynynOhio State University Wexner Medical Centerevue09-16-2014 pneumococcal conjugate vaccine, 13 Dalila Hermes [phone]-QcitzKettering Health – Soin Medical Centerue09-16-2014 pneumococcal conjugate vaccine, 7 Ema Ham MD Work Phone: [facility] Payers DatePayer CategoryPayerPolicy [id number] Health Insurance [id number]-dbf [id number] Eligibility Medicare/Medicaid [facility]UNOH[facility] [place] [id number] [id number] 2023Medicare (Managed Care)[id number] 2023Medicare [id number] 2.16.840.6.994145.043519 [id number] [id number] [id number] 1960 [id number] 2.16.840.1.062980.3.579.2.647 89-76-5375Ukxgxmt4590328 2.16.840.1.528651.3.579.2.16667-08-1091Zsgmfcf9165482 2.16.840.1.738184.3.579.2.80875-65-0763Ckflhef6593281 2.16.840.1.687047.3.579.2.84577-35-1694Kkohqoi8360471 2.16.840.1.511468.3.579.2.23067-68-5400Ucurqdf9691214 2.16.840.1.020609.3.579.2.20237-67-8069Kuccvrg9056346 2.16.840.1.353653.3.579.2.00139-64-8214Tfhkwzt2740285 2.16.840.1.561625.3.579.2.47292-58-2605Kkgbxhc6620184 2.16.840.1.749277.3.579.2.23552-67-1859Zsxzxyb8015578 2.16.840.1.148393.3.579.2.60889-49-2802Kaajpks6706163 2.16.840.1.544882.3.579.2.68712-82-7492Rtfhdft0659720 2.16.840.1.686214.3.579.2.60959-09-2668Plsnvlg4643678 2.16.840.1.981351.3.579.2.44795-46-3132Kqyhuut5313770 2.16.840.1.233315.3.579.2.63519-50-8282Ajzeysd6247272 2.16.840.1.691087.3.579.2.75995-77-0727Qaoaavr2867528 2.16.840.1.974443.3.579.2.35569-96-4259Rodlbwj3458238 2.16.840.1.286388.3.579.2.75783-96-3843Uzofnfp2989735 2.16.840.1.215653.3.579.2.56739-57-7263Twxleaf1473296 2.16.840.1.617705.3.579.2.12907-61-9470Opiglpo3008781 2.16.840.1.990304.3.579.2.90170-84-1352Fskedki4895640 2.16.840.1.986943.3.579.2.95231-77-3637Xqonbgh954163761 2.16.840.1.429392.3.579.2.80412-58-6934Qiipfed958345561 2.16.840.1.884002.3.579.2.52018-45-4399Efaxavo804035935 2.16.840.1.160268.3.579.2.15793-08-3052Oemcpfa42517913 2.16.840.1.890888.3.579.2.78422-56-3218Zcyllhl88907451 2.16.840.1.901628.3.579.2.25335-25-9471Dlfowqf53036244 2.16.840.1.254151.3.579.2.74460-48-6651Oijscwv83334776 2.16.840.1.874699.3.579.2.78787-13-0103Joekybq34692090 2.16.840.1.314074.3.579.2.63408-96-9649Hlbhyfw80213645 2.16.840.1.986505.3.579.2.19952-31-8186Yewenuw73102667 2.16.840.1.417334.3.579.2.82460-73-3570Kzxixam60308654 2.16.840.1.509132.3.579.2.21859-50-7203Ujqiiyu37049166 2.16.840.1.796577.3.579.2.17677-34-8715Dzpqgpa84158274 2.16.840.1.755747.3.579.2.96117-57-9256Ylwmesj48261045 2.840.1.499157.3.579.2.43228-80-4071Fnoqhok29314304 2.16840.1.005136.3.579.2.28644-95-8245Ozznloq30182584 2.840.1.910005.3.579.2.12378-35-4422Xzdrsdk29218123 2.840.1.005779.3.579.2.18706-87-5332Czomwcs747220912 2.840.1.996825.3.579.2.328919-15-6630Fwvvirl236001682 2.16840.1.855089.3.579.2.452490-86-4101Nkivrws255753086 2.16840.1.699161.3.579.2.975242-64-0422Cafyjxh445406908 2.16.840.1.807756.3.579.2.158117-13-3267Gpzomzk176813938 2.16840.1.944294.3.579.2.951844-59-1085Wpnmvuo267187963 2.16.840.1.035258.3.579.2.122047-56-6465Clodpbi90916333 2.16.840.1.206714.3.579.2.707046-78-5844Stfxion96233077 2.16.840.1.008501.3.579.2.946399-41-4156Pdqcafd07747538 2.16.840.1.929887.3.579.2.278147-97-1509Twjbcus26838093 2.16.840.1.710290.3.579.2.734638-16-4296Olgblsb69411290 2.16.840.1.174307.3.579.2.926386-27-1951Oinfddk0643803 2.16.840.1.599167.3.579.2.706673-91-4597Cvjuntu8868467 2.16.840.1.298561.3.579.2.613669-08-4622Aozgbyg8730470 2.16.840.1.583831.3.579.2.749080-95-6463Xseasae0258406 2.16.840.1.627896.3.579.2.421619-87-8705Dteabyu0413674 2.16.840.1.550889.3.579.2.532198-40-8097Nagtrsj0776729 2.16.840.1.555104.3.579.2.644518-46-3320Hehyinj2397312 2.16.840.1.037050.3.579.2.493728-52-7349Lyopbow2982793 2.16.840.1.123256.3.579.2.360817-50-5648Wsldkzz4514369 2..840.1.946894.3.579.2.906149-44-9957Ripwgrn0777606 2.840.1.209229.3.579.2.075672-24-4661Mdyvrmk7112881 2.840.1.179934.3.579.2.182257-58-4996Ncdfkls0354519 2.840.1.993784.3.579.2.773162-64-0881Jvurfta31770521 2.0.1.269103.3.579.2.93654-94-3566Lqkreal42460537 2..1.698756.3.579.2.54291-04-4427Ijhmtdi28701327 2..1.524299.3.579.2.90829-86-8908Ymeeleh59886534 2.0.1.235925.3.579.2.20855-92-2101Kubtfdk87397888 2..1.039816.3.579.2.48360-60-5930Wrcnknb742345957 2..1.442391.3.579.2.061Qkkowle44629412 2.840.1.231030.3.579.2.531 Zuiwxiq16832793 2.840.1.913727.3.579.2.988Ibyjsze85898393 2.840.1.056763.3.579.2.628Hmjefio18945804 2.840.1.689972.3.579.2.531 Aiztxjh43657296 2.840.1.833501.3.579.2.028Jmvxaxh90789529 2.16.840.1.349209.3.579.2.732Mihytet05711510 2.840.1.997050.3.579.2.531 Mglnleo89811382 2.16840.1.625881.3.579.2.946Sfjfkhm17374794 2.16840.1.536097.3.579.2.682Sagszxv00253760 2.840.1.701547.3.579.2.531 Xaykgtg95515051 2.840.1.235305.3.579.2.479Pqkdjnu82007646 2.840.1.081676.3.579.2.403Pbsadft24639983 2.840.1.308730.3.579.2.531 Tyrcwyh53499454 2.840.1.446538.3.579.2.219Wwuurty35386633 2.840.1.478532.3.579.2.189Fpsxujk44739463 2.840.1.368107.3.579.2.531 Iqdwpti87838189 2.840.1.18353[id number] 2.840.1.5[id number] 2.840.1.369597.3.579.2.531 [id number] 2.840.1.5[id number] 2.840.1.8[id number] 2.840.1.737332.3.579.2.531 [id number] 2.840.1.551845.3.579.2.531 Social History DateTypeDetailFacilityTobacco smoking status NHISUnknown if ever smokedMansfield Hospital CtrStart: 47-19-0509Brd [facility]art: 04-01-2023 End: 80-32-4760Lgl [facility]tart: 04-27-2022 End: 68-73-2888Kxetwrf smoking statusEx-smoker (finding)[facility] on above:former smoker quit at age 41, 1 PPDPatient states he smoked about 1.5 PPD, cigarettes, from about 17 y.o. to about 41 y.o.Start: 04-10-2022 End: 81-46-1182Cyqfvbl smoking statusNeverExec[facility] on above:former smoker quit at age 41, 1 PPD Patient states he smoked about 1.5 PPD, cigarettes, from about 17 y.o. to about 41 y.o. End: 31-31-9476Glzbcll of tobacco useCurrent smokerLakehealth [facility] End: 28-74-9085Bydricj of tobacco useCigarette SmokerHenry County Hospitaltart: 29-36-1537Flqgcgv use and exposureSmokeless tobacco non-userLakehealth [facility]wood Medical [facility] Start: 04-01-2023 End: 56-33-3356Xezzdpy of Social functionHenry County Hospitaltart: 92-86-4664Dmb Assigned At BirthNot on [facility] HospitalHistory of tobacco usePassive smoker [facility]Start: 02-12[facility]2024 End: 00-80-4447Oguojtacc beverage intakeCurrent drinker of alcohol (finding)[facility] HealthcareStart: 42-73-9504Faczzdt CommentYears smoked: 25N[facility] HealthcareStart: 38-59-0627Eqaavwp Comment1 or 2 drinks/day, monthly or less; Caffeine: 1 drink/dayNOMS HealthcareStart: 04-07-2024 End: 66-97-4609Etcocie use and exposureFormer smokeless tobacco userSt. [facility] Work Phone: Start: 04-01-2024 End: 85-38-4993Apebumct to SARS-CoV-2 (event)Not sureUnTrumbull Regional Medical CenterStart: 12-93-3873Jwtyzj identityIdentifies as male gender (finding) [facility] Work Phone: Start: 96-43-4154Mnkbqd orientationHeterosexual (finding)[facility] Work Phone: Start: 06-14-2024 End: 75-59-3893ZilGcms (finding)[facility]: 08-20-2024 End: 52-90-7364Wbvjdvn smoking status NHISNever smoked tobacco (finding) [facility]art: 65-96-2166MCIA Follow upSDOH Follow up [facility] Work Phone: Sexual OrientationC[facility] Clinic [facility] Start: 94-15-0252Ptzobbe Commentor less or week [facility] Work Phone: Medical Equipment Procedure CodeEquipment CodeEquipment Original TextEquipment IdentifierDates Insertion of central venous catheter (CVC) with subcutaneous port for chemotherapyVascular port/catheter()[id number] FDA Start: 07-17-2024 End: 37-20-1844Emj Instructions, one touch ultra test strips test sugars once a dayStart: 63-45-9002Wzu Instructions, one touch ultra lancets Use to test sugars once a dayStart: 12-78-0093Qok Instructions, one touch ultra test strips test sugars once a dayStart: 09-01-8744Dxe Instructions, one touch ultra lancets Use to test sugars once a dayStart: 28-56-9904Srw Instructions, one touch ultra test strips test sugars once a dayStart: 06-74-4291Cmw Instructions, one touch ultra lancets Use to test sugars once a dayStart: 07-62-2555Vdv Instructions, one touch ultra test strips test sugars once a dayStart: 73-81-3246Loy Instructions, one touch ultra lancets Use to test sugars once a dayStart: 54-22-7754Hpc Instructions, one touch ultra test strips test sugars once a dayStart: 97-34-6421Mih Instructions, one touch ultra lancets Use to test sugars once a dayStart: 05-33-3948Dgt Instructions, one touch ultra test strips test sugars once a dayStart: 83-21-1457Lbb Instructions, one touch ultra lancets Use to test sugars once a dayStart: 54-33-3477God Instructions, one touch ultra test strips test sugars once a dayStart: 45-09-6027Gyd Instructions, one touch ultra lancets Use to test sugars once a dayStart: 28-58-0471Cae Instructions, one touch ultra test strips test sugars once a dayStart: 23-14-4609Hif Instructions, one touch ultra lancets Use to test sugars once a dayStart: 87-76-1091Nvh Instructions, one touch ultra test strips test sugars once a dayStart: 71-18-1699Atp Instructions, one touch ultra lancets Use to test sugars once a dayStart: 81-02-8713Wzp Instructions, one touch ultra test strips test sugars once a day Start: 67-13-9914Heo Instructions, one touch ultra lancets Use to test sugars once a dayStart: 70-18-2560Dos Instructions, one touch ultra test strips test sugars once a dayStart: 75-49-6183Wic Instructions, one touch ultra lancets Use to test sugars once a dayStart: 53-60-5752Zfs Instructions, one touch ultra test strips test sugars once a dayStart: 15-28-9763Cvn Instructions, one touch ultra lancets Use to test sugars once a dayStart: 68-68-7571Mjs Instructions, one touch ultra test strips test sugars once a dayStart: 23-39-7930Ela Instructions, one touch ultra lancets Use to test sugars once a dayStart: 12-64-6739Ebu Instructions, one touch ultra test strips test sugars once a dayStart: 57-72-3608Ypg Instructions, one touch ultra lancets Use to test sugars once a dayStart: 30-67-1559Ueq Instructions, one touch ultra test strips test sugars once a dayStart: 15-46-5892Ifw Instructions, one touch ultra lancets Use to test sugars once a dayStart: 14-76-9924Rut Instructions, one touch ultra test strips test sugars once a dayStart: 78-99-0594Ryv Instructions, one touch ultra lancets Use to test sugars once a dayStart: 78-39-8988Qku Instructions, one touch ultra test strips test sugars once a dayStart: 55-14-6609Nzu Instructions, one touch ultra lancets Use to test sugars once a dayStart: 08-24-2022 Goals DatePatient GoalDesired Activity/State Functional Status ZwakBpjmbwtmgrXkhgzuCihcijom95-76-6692Mvzxqbn Health Questionnaire 2 item (PHQ- 2) [Reported][facility] Work Phone: 1(770) [phone]qpzvqsuyf statusPatient at Baseline [facility] Work Phone: 1(504) 765-34691475924-03-1982Uqsiismedj StatusN/[facility] Wkciaa82-03-2736Sveshvmzhx StatusN/[facility] Fbjhhb83-64-3233Czpzfikfog StatusN/[facility] Pbcmbe02-84-7731Ewlfpsgyqs StatusN/[facility] Txfazo84-96-7849Xizzxyogmn StatusN/[facility] Fnurpg82-60-2245Uwxoxdhcom StatusN/[facility] Yrjhbv77-85-8179Rbslkwkdny StatusN/[facility] Wylthy45-65-4363Ohavyjzxqk StatusN/[facility] 74-26-3555Fsnsghgpvh StatusN/[facility] Mental Status CvbtCmgnrryoevZupsjfMeottmkc43-89-1212Oferhoseg functionCognitive Status Patient at BaselineSum[facility] Work Phone: Clinical Notes 11-29-2021 to 03-22-2025 Note Date & NsblVrzwXrseehsd41-76-6161 Radiology Diagnostic study note[address] [place] [address] CT Scan Report Signed Patient: Jeremie Bennett MR#: [id number] : 1940 Acct:[id number] Age/Sex: 84 / M ADM Date: 5 Loc: CT Room: Type: [facility] Attending Dr: Chang Russell MD Copies to: [...] atherosclerosis of carotid arteries. Patent coronary stenting. Cardiacleads present. 5 mm right costophrenic angle noduleunchanged. Mild atelectasis. LIVER: Unremarkable GALLBLADDER: Cholecystectomy clips identified. BILE DUCTS: No dilatation SPLEEN: Unremarkable PANCREAS: Unremarkable ADRENAL GLANDS: Unremarkable KIDNEYS:Unremarkable AORTA: No abdominal aortic aneurysm identified. Moderate volume of atherosclerosis of the aorta andbranches. RETROPERITONEUM: No significant retroperitoneal abnormalities identified. MESENTERY:Unremarkable [...] Melton M.D. 03/22/2025 9:46 PM Dictation Location: [place] [address] Transcribed By: [facility] 03/22/252145 Dictated By: Christian Melton DO 03/22/252136 Signed By: 03/22/252145 [facility]09-04-2025 History of Present illness Narrative * Veena Adkins DO - 01/18/2025 9:45 AM [...] I'll see him PRN. documented in this encounterI-70 Community HospitalUpsnpiprun34-89-1198 Evaluation note* Diagnosis Onset Date Resolution Status Admit Date Squamous cell carcinoma of oropharynx acuteAugust 2024 12:32pmSquamous cell carcinoma of oropharynxacuteOctober 2024 9:41am [facility] Work Phone: 1(794) 101-688708-12-2025 Evaluation note* Diagnosis Onset Date Resolution Status Admit Date Squamous cell carcinoma of oropharynx acuteAugust 2024 12:32pmSquamous cell carcinoma of oropharynxacuteOctober 2024 9:41amAbnormal CT of the abdomenacuteOctober 2024 1:20pmRight upper quadrant abdominal painacuteOctober 2024 1:20pm [facility] Work Phone: 1(275) 599-878108-12-2025 [facility]UnAsp[facility] [place] [address] Cancer Center Note Signed Patient: Jeremie Bennett MR#: [id number] : 1940 Acct:[id number] Age/Sex: 84 / M Type: DEP AMB [...] G-tube was placed by surgery here at [facility] and patient is hopeful to have this [...] Allergy (Unknown, Verified 11/23/24 10:00) hives [facility] Medical History Medical History (Updated [...] APRN DD/ 1303 Signed By: 12/26/24 1343 [facility]07-28-2025 History of Present illness Narrative * Mary Ly MD - 12/11/2024 1:45 PM EDT HEAD [...] onc) [facility]24 post treatment PET with [...] lymph nodes Procedure Note: Diagnostic Flexible Laryngoscopy (39922) Indication: patient symptoms requiring evaluation of pharyngeal/laryngeal/hypopharyngeal [...] now s/p completion of chemoradiation treatment at [facility] August 2024 - Doing well overall, scope and exam findings with improved thick mucous and edema. JUVE today on exam or imaging - Continue IMPROVEMENT AUDITOR therapy, he will do this closer to [...] ENT Dr Ham if urgent concerns Mary Ly MD documented in this [facility] Work Phone: 1(393) 644-594507-22-2025 NoteUT Electrophysiology Consult Note [place] [facility] Reason for visit: Device [...] on file Intimate Partner Violence: Unknown (07/08/2023) [place] Safety & Environment Fear of Current or Ex-Partner: Not on file Emotionally Abused: Not on file Physically Abused: Not on file Sexually Abused: Not on file Physically or Sexually Abused: Not on file Depression: Not at risk (09/11/2024) Received from [facility] PHQ-2 Patient Health Questionnaire-2 Score: 0 Housing [...] MOUTH IN THE MORNING 100 tablet 3 ZADDEXFIUC-MRKZVMZ-CFNFOIUV ORAL Take by mouth if needed. clopidogrel [...] 1 tablet every day by oral route. zwfrewjexg-lhpzlcplyzamv-hgrj (Esgic) 50-325-40 mg capsule Take 1 capsule [...] mg by mouth in the morning. HYDROcodone-acetaminophen ([place]) 5-325 mg tablet Take 1 tablet by mout (more content not included)...[facility]07-10-2025 [facility] [place] [address] Cancer Center Note Signed Patient: Jeremie Bennett MR#: [id number] : 1940 Acct:[id number] Age/Sex: 84 / M Type: REG AMB [...] by IHC was equivocal. As per the [facility] tumor board recommendation is either doing [...] week 1 of cisplatin. Labs at [facility] on 07/03/24 revealed hgb 13.3, cr is 1.0. He is having his labs here today.He had his pacemaker placed on 07/10/24 in [place]. 07/20/2024 he came in complaining of increase [...] an 83-year-old gentleman who lives in [facility] was referred to our medical oncology office from 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 ENT and underwent a biopsy. He [...] positive squamous cell carcinoma. Tumor board at [facility] in mid and the recommended concurrent [...] with concurrent chemoradiation. Since he lives in [place] he was referred by Dr. Mary Ly from ENT at [facility] to our medical oncology and radiation oncology at [facility]. He is referred to medical oncology for [...] week 1 of cisplatin. Labs at [facility] on 07/03/24 revealed hgb 13.3, cr is 1.0. He is having his labs here today.He had his pacemaker placed on 07/10/24 in [place]. 07/20/2024 he came in complaining of increase [...] concerns voiced at time of intake. [facility] Medical History Medical History Squamous [...] Mother Heart disease History of stroke [facility] Problem: Diagnosed with Stroke Hypertension Emphysema lung ESRD (end stage renal disease) Sister Cancer [facility] Problem: Diagnosed with Cancer Lymphoma Social History [...] MD DD/ 0957 Signed By: 11/23/24 1026 [facility]07-10-2025 Evaluation note* Diagnosis Onset Date Resolution Status Admit Date Cancer associated pain acuteJuly 2024 7:46amSquamous cell carcinoma of oropharynxacuteJuly 2024 7:46amSquamous cell carcinoma of oropharynxacuteJuly 2024 9:41am Squamous cell carcinoma of oropharynxacuteJuly 2024 10:01amSquamous cell carcinoma of oropharynxacuteAugust 2024 12:32pm [facility] Work Phone: 1([phone]) 177-723107-08-2025 NotePatient Education Endocrinology Blood Glucose Monitoring, Adult [...] Where to find more information ??? The [place] Diabetes Association: diabetes.org ??? The Association of [...] levels in y (more content not included)... 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 Gait Casual gait is normal including [...] up in 6 months documented in this encounterI-70 Community HospitalLkikbwksls69-78-9681 History of Present illness Narrative* Veena Adkins, [...] 5 mg, Daily aspirin 81 mg, Daily wbprimtqun-kksxwoezvywoy-ogztafee 50-325-40 MG tablet 1 tablet, Every 4 [...] 2005 ablation OTHER SURGICAL HISTORY 2007 sphincterotomy [place] CHOLECYSTECTOMY 02/2020 Laparoscopic Cholecystectomy - [place] IMPLANT ARTIFICIAL SPHINCTER 2017 PROSTATE 2000 TONSILLECTOMY [...] schedule early next week. documented in this encounterI-70 Community HospitalHkoqmxcycg64-95-0092 [facility] [place] [address] [place] [address] CT Scan Report Signed Patient: Jeremie Bennett MR#: [id number] : 1940 Acct:[id number] Age/Sex: 83 / M ADM Date: 5 Loc: ER Room: Type: [facility] ER Attending Dr: Copies to: [...] Gordon M.D. 09/20/2024 8:03 PM Dictation Location: [facility] Transcribed By: [facility] 09/20/242002 Dictated By: Rafi Gordon II, MD 09/20/241947 Signed By: 09/20/242002 [facility] Work Phone: 1([phone]) [phone] Hospital Discharge instructions Additional Instructions Please return [...] testing/monitoring to rule out evidence of possible cancer.[facility] Work Phone: [phone]) 487-245405-01-2025 NotePatient Education Nutrition BMI for Adults Body [...] for Disease Control and Prevention: cdc.gov ??? [place] Heart Association: heart.org ??? National Heart, Lung, and Blood [place]: nhlbi.nih.gov This information is not intended to replace advice given to you by your health care provider. Make sure you discuss any questions you have with your health care provider. Document Revised: 01/21/2023 Document Reviewed: 01/14/2023 [employer] Patient Education ? 2023 ShowMe.[facility] 09-11-2024 History of Present illness Narrative* Mary Ly MD - 09/11/2024 2:00 PM EDT HEAD [...] and Dr Lamas (med onc) at [facility] after completion of chemoradiation treatment earlier this month. Weight down to 149 lbs (prior 170 lbs). Swallowing liquids, saw IMPROVEMENT AUDITOR during treatment, not recently. Had pacemaker replaced. [...] lymph nodes Procedure Note: Diagnostic Flexible Laryngoscopy (95954) Indication: patient symptoms requiring evaluation of pharyngeal/laryngeal/hypopharyngeal [...] now s/p completion of chemoradiation treatment at [facility] August 2024 - Doing well overall, scope and exam findings as expected - Recommend continued IMPROVEMENT AUDITOR therapy, he will do this closer to home - Discussed imaging, he has PET scheduled in November - Will need post-treatment NavDx either now or at next appointment - Discussed NCCN guidelines and ongoing surveillance - Follow up with me in 2-3 months after PET, certainly sooner if any issues Mary Ly MD documented in this [facility] Work Phone: 1(371) 937-762904-24-2025 Evaluation note* Diagnosis Onset Date Resolution Status [...] of oropharynxacuteJuly 2024 9:41amTongue canceracuteJuly 2024 10:01am [facility] Work Phone: 1(133) 372-256404-24-2025 Evaluation note* Diagnosis Onset Date Resolution Status [...] 9:41amSquamous cell carcinoma of oropharynxacuteJuly 2024 10:01am [facility] Work Phone: 1([phone]) 322-355404-07-2025 [place] [address] Discharge Summary Signed Patient: Jeremie Bennett MR#: [id number] : 1940 Acct:[id number] Age/Sex: 83 / M Adm Date: 5 Loc: Room: [address] [place] [address]: Zeke Brennan MD Copies to: [...] he was discharged home stable condition [facility] with few more days of oral antimicrobial [...] Continuity of Care Document Health Concerns: A [facility] screening has identified you as FRAIL [...] Strong:Four Ways to Beat the Frailty Risk [email or web address].org/health/jkfovfay-tuk-ytsqernwqh/st kp-bajilv-breg- hxsm-pg-ppsn-nlj-ppejmrp-eebb Exam Physical Exam Vital Signs: Temp Pulse [...] % (Auto) 75.8, Lymph % (Auto) 9.0, [place] % (Auto) 13.6, Eos % (Auto) 1.0, Baso % (Auto) 0.6, Nucleat RBC Rel Count 0.1, Neut # (Auto) 4.7, Lymph # (Auto) 0.6 L, [place] # (Auto) 0.8, Eos # (Auto) 0.1, [...] % (Auto) 77.0, Lymph % (Auto) 10.5, [place] % (Auto) 11.3, Eos % (Auto) 0.7, Baso % (Auto) 0.5, Nucleat RBC Rel Count 0.2, Neut # (Auto) 5.7, Lymph # (Auto) 0.8 L, [place] # (Auto) 0.8, Eos # (Auto) 0.1, Baso # (Auto) 0.0, Monocyte Dist Width 23.19 H, ESR 42 H, PT 12.9, INR 1.1, Lactic Acid 0.8, C-Reactive Prot, Quant Cancelled 08/20/24 12:20: PHA Creatinine Clear 58.71, Sodium 136, Potassium 3.7, Chloride 104, Carbon Vwzinqa40.4, Anion Gap 10.3, BUN 16, Creatinine 0.85, Est GFR (CKD- EPI) > 60.0, Glucose 106 H, Calcium 8.4 L, Total Bilirubin 0.6, AST 18, ALT 17, Alkaline Phosphatase 66, C-Reactive Prot, Quant 3.3 H, Total Protein 5.9 L, Albumin 3.4 L, Globulin 2.5, Albumin/Globulin Ratio 1.4 Documented By: Zeke Brennan MD 08/21/24 1407 Signed By: 08/21/24 1414 [facility]04-07-2025 Progress noteFIRJessica [place] [id number] Hospitalist Progress Note Signed Patient: Jeremie Bennett MR#: [id number] : 1940 Acct:[id number] Age/Sex: 83 / M Adm Date: Loc: Room: [address] [place] [address] Type: ADM IN Attending Dr: Zeke Brennan [...] care and confirmed it with the re sident/student/DEVELOPMENT VICE PRESIDENT. This patient presented to the emergency department [...] spray 08/21/24 09:00 08/21/24 09:02 Fluticasone Propionate [place] 120 [place]/16 Gm Bottle INTRANASAL 08/21/25 08:59 2 spray [...] Drops/2.5 Ml Bottle EYE-BOTH 08/21/25 20:59 QPM [facility] Lidocaine/Prilocaine 1 applic 08/20/24 21:59 Lidocaine-Prilocaine [...] 1135 Signed By: 08/21/24 1414 08/21/24 1152 [facility]04-07-2025 Consult note Author Yash Thomas [facility] HospitalNote Date/TimeApril 2024 11:10[place] [address] Infect. Disease Consult Note Signed Patient: Jeremie Bennett MR#: [id number] : 1940 Acct:[id number] Age/Sex: 83 / M Adm Date: 5 Loc: Room: [address] [place] [address] Type: ADM IN Attending Dr: Zeke Brennan [...] 10 PM CC: Zeke Brennan MD [facility] Medical History Pacemaker Prostate cancer [...] Mother Heart disease History of stroke [facility] Problem: Diagnosed with Stroke Hypertension Emphysema lung ESRD (end stage renal disease) Sister Cancer [facility] Problem: Diagnosed with Cancer Lymphoma Social [...] 81 Mg Tab.Chew) 81 mg PO DAILY [facility] Stop: 08/21/25 08:59 Last Admin: 08/21/24 09:01 Dose: 81 mg Atorvastatin Calcium (Atorvastatin 20 Mg Tablet) 20 mg PO QPM [facility] Stop: 08/21/25 20:59 Clopidogrel Bisulfate (Clopidogrel Bisulfate 75 Mg Tablet) 75 mg PO DAILY [facility] Stop: 08/21/25 08:59 Last Admin: 08/21/24 09:00 Dose: 75 mg Dorzolamide HCl (Dorzolamide 2% Op Soln 200 Drops/10 Ml Bottle) 1 drops EYE-BOTH BID [facility] Stop: 08/21/25 08:59 Last Admin: 08/21/24 09:04 Dose: 1 drops Famotidine (Famotidine 20 Mg Tablet) 20 mg PO QPM [facility] Stop: 08/21/25 20:59 Fentanyl (Fentanyl Patch 12 Mcg/Hour Patch.Td72) 12 mcg TRANSDERML Q72HR [facility]; Protocol Fluticasone Propionate (Fluticasone Propionate Roan[place] 120 [place]/16 Gm Bottle) 2 spray [facility]AL [facility] Stop: 08/21/25 08:59 Last Admin: 08/21/24 09:02 Dose: 2 spray Ceftriaxone Sodium (Rocephin) 1 gm in 50 mls @ 100 mls/hr IV QHS [facility] Isosorbide Mononitrate (Isosorbide Mononitrate 24hr Er 30 Mg Tab.Er.24h) 30 mg PO QAM [facility] Stop: 08/21/25 08:59 Last Admin: 08/21/24 09:00 Dose: 30 mg Latanoprost (Latanoprost 0.005% Op Soln 50 Drops/2.5 Ml Bottle) 1 drops EYE-BOTH QPM [facility] Stop: 08/21/25 20:59 Lidocaine/Prilocaine (Lidocaine-Prilocaine Cr 2.5-2.5% 5 Gm Tube) 1 applic TOPICAL ONCE PRN PRN Reason: pain Stop: 08/20/25 21:58 Metformin HCl (Metformin 500 Mg Tablet) 500 mg PO DAILY@0800 [facility] Stop: 08/21/25 07:59 Last Admin: 08/21/24 09:00 Dose: 500 mg Multi-Ingredient Mouthwash/Gargle (Magic Mouthwash With Lidocaine) 10 ml PO QIDPRN PRN Reason: mucositis Stop: 08/20/25 22:46 Nystatin (Nystatin Susp 500,000 Unit/5 Ml Udc) 500,000 unit PO QID [facility] Stop: 08/21/25 08:59 Last Admin: 08/21/24 09:01 Dose: 500,000 unit Olanzapine (Olanzapine 2.5 Mg Tablet) 2.5 mg PO BID [facility] Stop: 08/21/25 08:59 Last Admin: [...] 40 Mg Tablet.Dr) 40 mg PO BID [facility] Stop: 08/21/25 08:59 Last Admin: 08/21/24 09:00 Dose: 40 mg Rivaroxaban (Rivaroxaban 10 Mg Tablet) 10 mg PO QHS [facility] Stop: 08/21/25 21:59 Sennosides (Sennosides 8.6 Mg Tablet) 8.6 mg PO BID PRN PRN Reason: constipation Stop: 08/20/25 21:58 Last Admin: 08/21/24 09:00 Dose: 8.6 mg Silver Sulfadiazine (Silver Sulfadiazine 1% Cream 400 Gm Jar) 1 applic TOPICAL BID [facility] Stop: 08/21/25 08:59 Last Admin: 08/21/24 09:07 Dose: 1 applic Sodium Chloride (Sodium Chloride 0.9 % 10 Ml Syringe) 0 ml IV-PUSH PRN PRN PRN Reason: Flush Stop: 08/20/25 16:56 Last Admin: 08/20/24 17:20 Dose: 10 ml Sodium Chloride (Sodium Chloride 0.9 % 10 Ml Syringe) 10 ml IV-PUSH Q8H [facility] Stop: 08/20/25 19:44 Last Admin: 08/21/24 03:06 Dose: Not Given Sotalol HCl (Sotalol 80 Mg Tablet) 40 mg PO BID [facility] Stop: 08/21/25 08:59 Last Admin: 08/21/24 09:01 Dose: 40 mg Tizanidine HCl (Tizanidine 4 Mg Tablet) 4 mg PO QPM [facility] Stop: 08/21/25 20:59 Zonisamide (Zonisamide 25 Mg Capsule) 25 mg PO BID [facility] Stop: 08/21/25 08:59 Last Admin: [...] cultures. Documented By: Yash Thomas MD 08/21/24 1059 Signed By: <Electronically signed by MD Yash Thomas> 08/21/24 1111 [facility] Work Phone: 1(160) 609-903004-07-2025 Consult [place] [id number] Infect. Disease Consult Note Signed Patient: Jeremie Bennett MR#: [id number] : 1940 Acct:[id number] Age/Sex: 83 / M Adm Date: 5 Loc: Room: [address] [place] [address] Type: ADM IN Attending Dr: Zeke Brennan [...] 10 PM CC: Zeke Brennan MD [facility] Medical History Pacemaker Prostate cancer [...] 81 Mg Tab.Chew) 81 mg PO DAILY [facility] Stop: 08/21/25 08:59 Last Admin: [...] Q72HR [facility]; Protocol Fluticasone Propionate (Fluticasone Propionate [place] 120 [place]/16 Gm Bottle) 2 spray INTRANASAL [facility] Stop: 08/21/25 08:59 Last Admin: 08/21/24 09:02 Dose: 2 spray Ceftriaxone Sodium (Rocephin) 1 gm in 50 mls @ 100 mls/hr IV QHS [facility] Isosorbide Mononitrate (Isosorbide Mononitrate 24hr Er 30 Mg Tab.Er.24h) 30 mg PO QAM [facility] Stop: 08/21/25 08:59 Last Admin: 08/21/24 09:00 Dose: 30 mg Latanoprost (Latanoprost 0.005% Op Soln 50 Drops/2.5 Ml Bottle) 1 drops EYE-BOTH QPM [facility] Stop: 08/21/25 20:59 Lidocaine/Prilocaine (Lidocaine-Prilocaine Cr 2.5-2.5% 5 Gm Tube) 1 applic TOPICAL ONCE PRN PRN Reason: pain Stop: 08/20/25 21:58 Metformin HCl (Metformin 500 Mg Tablet) 500 mg PO DAILY@0800 [facility] Stop: 08/21/25 07:59 Last Admin: 08/21/24 09:00 Dose: 500 mg Multi-Ingredient Mouthwash/Gargle (Magic Mouthwash With Lidocaine) 10 ml PO QIDPRN PRN Reason: mucositis Stop: 08/20/25 22:46 Nystatin (Nystatin Susp 500,000 Unit/5 Ml Udc) 500,000 unit PO QID [facility] Stop: 08/21/25 08:59 Last Admin: 08/21/24 09:01 Dose: 500,000 unit Olanzapine (Olanzapine 2.5 Mg Tablet) 2.5 mg PO BID [facility] Stop: 08/21/25 08:59 Last Admin: [...] Thomas MD 08/21/24 1053 Signed By: 08/21/[address] [place], [place] 7294604-07-2025 Radiology Diagnostic study note [facility] Main [place] [address] [place] [address] CT Scan Report Signed Patient: Jeremie Bennett MR#: [id number] : 1940 Acct:[id number] Age/Sex: 83 / M ADM Date: 5 Loc: 3T Room: [address] [place] [address] Type: ADM IN Attending Dr: Jaiden Nance [...] Christian Melton M.D.08/21/2024 5:58 AM Dictation Location: [facility]- Transcribed By: [facility] 08/21/24 0558 Dictated By: Christian Melton DO 08/21/24 0555 Signed By: 08/21/24 0558 [facility]03-26-2025 Progress note Author Debora Wild [facility] HospitalNote Date/TimeMarch 2024 10:25[place] [address] Palliative Medicine Encounter Patient: Jeremie Bennett MR#: [id number] : 1940 Acct:[id number] Age/Sex: 83 / M Copies to: RAYSHAWN [...] tablet 81 mg PO DAILY 06/14/24 08/09/24 evkbiqv-uqvmlqicarfak-yyetiqib 250 1 tab PO Q4-6H PRN pain [...] 08/09/24 Is patient having pain?: Yes [facility] Medical History (Updated 08/09/24 @ [...] Alcohol Substance Abuse Comment: rare alcohol use [place] Symptom Assessment Scale Pain: throat pain controlled [...] recorder, note dictated by Debora Wild APRN, DEVELOPMENT VICE PRESIDENT-C ACHPN Dictated By: Debora Wild APRN DD/ 0945 Signed By: <Electronically signed by RAYSHAWN Wild> 08/09/24 [facility]5 [facility] Work Phone: 1([phone]) 230-156403-26-2025 [place] [address] Palliative Medicine Encounter Patient: Jeremie Bennett MR#: [id number] : 1940 Acct:[id number] Age/Sex: 83 / M Copies to: RAYSHAWN [...] tablet 81 mg PO DAILY 06/14/24 08/09/24 iaimzxw-bmnjqfcpehybv-qgcqlzpk 250 1 tab PO Q4-6H PRN pain [...] Alcohol Substance Abuse Comment: rare alcohol use [place] Symptom Assessment Scale Pain: throat pain controlled [...] remaining Attestation: The above note written by Voila Adan MA acting as human recorder, note dictated by Debora Wild APRN, DEVELOPMENT VICE PRESIDENTRosemaryC ACHPN Dictated By: Debora Wild APRN DD/ 0945 Signed By: 08/09/[address] [place], [place] 7126303-12-2025 Progress note Author Maru Ma [facility] HospitalNote Date/TimeMarch 2024 12:02pmG[place] [address] Palliative Medicine Encounter Patient: Jeremie Bennett MR#: [id number] : 1940 Acct:[id number] Age/Sex: 83 / M Copies to: DO [...] tablet 81 mg PO DAILY 06/14/24 07/26/24 pozlpqz-apccenihtbruf-cmabmzsg 250 1 tab PO Q4-6H PRN pain [...] Alcohol Substance Abuse Comment: rare alcohol use [place] Symptom Assessment Scale See above Exam Exam [...] signed by FELLOW Mario El> 07/26/24 0944 [facility] Work Phone: 1(513) 656-850503-12-2025 [place] [address] Palliative Medicine Encounter Patient: Jeremie Bennett MR#: [id number] : 1940 Acct:[id number] Age/Sex: 83 / M Copies to: DO [...] tablet 81 mg PO DAILY 06/14/24 07/26/24 nslojsv-vlvuhpuvucsmn-dvslcmfc 250 1 tab PO Q4-6H PRN pain [...] Alcohol Substance Abuse Comment: rare alcohol use [place] Symptom Assessment Scale See above Exam Exam [...] 0833 Signed By: 07/26/24 1202 07/26/24 0944 [facility]03-12-2025 Evaluation note* Diagnosis Onset Date Resolution Status Admit Date Squamous cell carcinoma of oropharynx acuteMarch 2024 8:13amCancer associated painacuteMarch 2024 8:22am NauseaacuteMarch 2024 8:22amSquamous cell carcinoma of oropharynxacute July 26, 2024 8:22am [facility] Work Phone: [phone]) [phone] Evaluation note* Diagnosis Onset Date Resolution Status Admit Date Squamous cell carcinoma of oropharynx acuteMarch 2024 8:13amCancer associated painacuteMarch 2024 8:22am NauseaacuteMarch 2024 8:22amSquamous cell carcinoma of oropharynxacute July 26, 2024 8:22amCancer associated painacuteMarch 2024 7:29am ConstipationacuteMarch 2024 7:29amSquamous cell carcinoma of oropharynx acuteMarch 2024 7:29amThrush, oralacuteMarch 2024 7:29am [facility] Work Phone: 1([phone]) 419-727103-12-2025 Evaluation note* Diagnosis Onset Date Resolution Status [...] 7:51amSquamous cell carcinoma of oropharynxacuteMarch 2024 9:23am [facility] Work Phone: [phone]) [phone] Evaluation note* Diagnosis Onset Date Resolution Status [...] 7:59amSquamous cell carcinoma of oropharynxacuteApril 2024 7:59am [facility] Work Phone: [phone] Evaluation note* Diagnosis Onset Date Resolution Status [...] 7:59amFeveracuteApril 2024 7:35pmImmunosuppressionacuteApril 2024 7:35pmPneumoniaacuteApril 2024 7:35pm [facility] Work Phone: 1([phone]) 164-332803-12-2025 Evaluation note* Diagnosis Onset Date Resolution Status [...] 7:35pmSquamous cell carcinoma of oropharynxacuteApril 2024 7:35pm [facility] Work Phone: 1([phone]) 330-104603-12-2025 Evaluation note* Diagnosis Onset Date Resolution Status [...] 9:55amSquamous cell carcinoma of oropharynxacuteApril 2024 9:55am [facility] Work Phone: [phone]) 561-517703-12-2025 Evaluation note* Diagnosis Onset Date Resolution Status [...] of oropharynxacuteMay 2024 2:36pmThrush, oralacuteMay 2024 2:36pm [facility] Work Phone: 1([phone]) 475-389303-05-2025 NoteUTP Cardiovascular Medicine [facility] Patient here for follow-up after his [...] provider in 3 months. Boy Buitrago APRN-[facility] Cardiovascular MedicineHolmes County [facility]02-26-2025 [facility] [place] [address] Cancer Center Note Signed Patient: Jeremie Bennett MR#: [id number] : 1940 Acct:[id number] Age/Sex: 83 / M Type: REG AMB [...] by IHC was equivocal. As per the [facility] tumor board recommendation is either doing [...] week 1 of cisplatin. Labs at [facility] on 07/03/24 revealed hgb 13.3, cr is 1.0. He is having his labs here today.He had his pacemaker placed on 07/10/24 in [place]. PLAN: proceed with week 2 cisplatin tomorrow [...] an 83-year-old gentleman who lives in [facility] was referred to our medical oncology office from 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 ENT and underwent a biopsy. He [...] positive squamous cell carcinoma. Tumor board at [facility] and the recommended concurrent chemoradiation. Past [...] with concurrent chemoradiation. Since he lives in [place] he was referred by Dr. Mary Ly from ENT at [facility] to our medical oncology and radiation oncology at [facility]. He is referred to medical oncology for [...] week 1 of cisplatin. Labs at [facility] on 07/03/24 revealed hgb 13.3, cr is 1.0. He is having his labs here today.He had his pacemaker placed on 07/10/24 in [place]. Rest of 14 point systems were reviewed [...] PO QAM aspirin 81 mg PO DAILY mgoqisi-nrpccgxlliylx-davhsezx 250-250-65 mg (Excedrin Migraine) 1 tab PO [...] concerns voiced at time of intake. [facility] Medical History Medical History (Updated [...] Mother Heart disease History of stroke [facility] Problem: Diagnosed with Stroke Hypertension Emphysema lung ESRD (end stage renal disease) [facility]: Diagnosed with Cancer Lymphoma Social [...] MD DD/ 0837 Signed By: 07/12/24 0920 [facility]02-24-2025 NotePACEMAKER GENERATOR REPLACEMENT PROCEDURE NOTE DATE [...] x 2 weeks Stacey Patel MD Cardiac ElectrophysiologyHolmes County [facility]02-20-2025 Progress note Author Debora Wild [facility] HospitalNote Date/TimeFebruary 2024 11:40am [place] [address] Palliative Medicine Encounter Patient: Jeremie Bennett MR#: [id number] : 1940 Acct:[id number] Age/Sex: 83 / M Copies to: ARYSHAWN Engle MD~ HPI Date of Visit Date [...] tablet 81 mg PO DAILY 06/14/24 06/22/24 qmcxvtn-ybneedbuprwyj-ldwojsmb 250 1 tab PO Q4-6H PRN pain [...] (psyllium husk)) Is patient having pain?: No [facility] Medical History (Updated 07/06/24 @ [...] Alcohol Substance Abuse Comment: rare alcohol use [place] Symptom Assessment Scale Pain: intermittent scratchy throat/ [...] mins #about Jeremie: Kaya moved her from [facility] Exam Exam General - A&O, accompanied [...] recorder, note dictated by Debora Wild APRN, DEVELOPMENT VICE PRESIDENT-C ACHPN Dictated By: Debora Wild APRN DD/ 0858 Signed By: <Electronically signed by RAYSHAWN Wild> 07/06/24 [facility] Work Phone: 1(735) 685-465102-20-2025 [place] [address] Palliative Medicine Encounter Patient: Jeremie Bennett MR#: [id number] : 1940 Acct:[id number] Age/Sex: 83 / M Copies to: RAYSHAWN [...] tablet 81 mg PO DAILY 06/14/24 06/22/24 ftdkfef-kdefbfhftfbxl-vrrgrllq 250 1 tab PO Q4-6H PRN pain [...] (psyllium husk)) Is patient having pain?: No [facility] Medical History (Updated 07/06/24 @ [...] Alcohol Substance Abuse Comment: rare alcohol use [place] Symptom Assessment Scale Pain: intermittent scratchy throat/ [...] mins #about Jeremie: Kaya moved her from [facility] Exam Exam General - A&O, accompanied [...] recorder, note dictated by Debora Wild APRN, DEVELOPMENT VICE PRESIDENT-C ACHPN Dictated By: Debora Wild APRN DD/ 0858 Signed By: 07/06/24 1140 [facility]02-18-2025 NoteNurse Consultation Note Reason for Visit [...] PRN, 1 refills fluticasone Nasal 0.05 mg/inh Chauvin, See Instructions furosemide 20 mg Tab, 20 [...] influenza virus vaccine, inactivated 04/12/2023 Recorded SARSCoV2 mRNA(buyozrgyc-dmxy-oliija) vac 11/25/2021 Recorded SARS-CoV-2 (COVID-19) mRNA BNT-162b2 vax 03/06/2021 Recorded 2022-11-03: TPV80 influenza virus vaccine, inactivated 02/18/2021 Recorded SARS-CoV-2 (COVID-19) mRNA BNT-162b2 vax 06/27/2020 Recorded SARS-CoV-2 (COVID-19) Ad26 vaccine 06/27/2020 Recorded SARS-CoV-2 (COVID-19) mRNA BNT-162b2 vax 06/06/2020 Recorded SARS-CoV-2 (COVID-19) Ad26 vaccine 06/06/2020 Recorded influenza virus vaccine, inactivated 02/14/2020 Recorded influenza, unspecified formulation 01/22/2018 Recorded pneumococcal 13-valent vaccine [facility]/30/[facility] NoteNurse Consultation Note Reason for [...] PRN, 1 refills fluticasone Nasal 0.05 mg/inh Chauvin, See Instructions furosemide 20 mg Tab, 20 [...] w/ Minerals, Oral, Daily omeprazole 40 mg Sha-DR, See Instructions Pepcid 20 mg Tab, 20 [...] influenza virus vaccine, inactivated 04/12/2023 Recorded SARSCoV2 mRNA(dbuonouqd-krwk-sbrewc) vac 11/25/2021 Recorded SARS-CoV-2 (COVID-19) mRNA BNT-162b2 vax 03/06/2021 Recorded 2022-11-03: TPV80 influenza virus vaccine, inactivated 02/18/2021 Recorded SARS-CoV-2 (COVID-19) mRNA BNT-162b2 vax 06/27/2020 Recorded SARS-CoV-2 (COVID-19) Ad26 vaccine 06/27/2020 Recorded SARS-CoV-2 (COVID-19) mRNA BNT-162b2 vax 06/06/2020 Recorded SARS-CoV-2 (COVID-19) Ad26 vaccine 06/06/2020 Recorded influenza virus vaccine, inactivated 02/14/2020 Recorded influenza, unspecified formulation 01/22/2018 Recorded pneumococcal 13-valent vaccine 01/30/2014 [facility] History of Present illness Narrative* LINWOOD Morgan - 06/23/2024 4:00 PM EST History: Patient was referred for an audiological evaluation. A baseline hearing exam was recommended prior to chemo treatment. Patient sees an ENT at [facility]. Patient is aware of hearing loss, [...] function Impressions: Results to Dr. Faustin at [facility] per patient. documented in this encounterI-70 Community [id number] History of Present illness Narrative* Matteo Bell MD - 06/20/2024 3:15 PM EST Images from the original note were not included. Jeremie Bennett 1940 Jeremie Bennett is a 83 y.o. male presents with chief complaint of Consult (Port - Ref Dr Amaya/Having pacemaker generator change on 07-10-24 / [place] cardiology Dr Patel.) HPI: Mr. Bennett is [...] 5 mg, Daily aspirin 81 mg, Daily lehaaxlawr-rzwfemohrrfld-cacfddgn 50-325-40 MG tablet 1 tablet, Every 4 [...] 2004 ablation OTHER SURGICAL HISTORY 2007 sphincterotomy [place] CHOLECYSTECTOMY 02/2020 Laparoscopic Cholecystectomy - [place] IMPLANT ARTIFICIAL SPHINCTER 2017 PROSTATE 2000 TONSILLECTOMY [...] placed on the right. documented in this encounterI-70 Community [id number] Progress note Author Talib Faustin [facility] HospitalNote Date/TimeJanuary 2024 11:06am [facility] [place] [address] Cancer Center Note Signed Patient: Jeremie Bennett MR#: [id number] : 1940 Acct:[id number] Age/Sex: 83 / M Type: REG AMB [...] by IHC was equivocal. As per the [facility] tumor board recommendation is either doing [...] an 83-year-old gentleman who lives in [facility] was referred to our medical oncology office from 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 ENT and underwent a biopsy. He [...] positive squamous cell carcinoma. Tumor board at [facility] and the recommended concurrent chemoradiation. Past [...] with concurrent chemoradiation. Since he lives in [place] he was referred by Dr. Mary Ly from ENT at [facility] to our medical oncology and radiation oncology at [facility]. He is referred to medical oncology for [...] PO DAILY aspirin 81 mg PO DAILY qzyojdx-ysjvhgnhwfoho-maaqcvij 250-250-65 mg (Excedrin Migraine) 1 tab PO [...] yellow fever card, magnet, caregiver resource list, [facility] nutrition guide, and cancer rehabilitation pamphlet [...] to have pace maker replaced 07/10/2024 at [facility]. [facility] Medical History Medical History (Updated [...] signed by Talib Faustin MD> 06/14/24 1106 [facility] Work Phone: 1([phone]) 405-514101-29-2025 Evaluation note* Diagnosis Onset Date Resolution Status Admit Date Squamous cell carcinoma of oropharynx acuteJanuary 2024 9:25amTongue canceracuteJanuary 2024 9:25am Squamous cell carcinoma of oropharynxacuteJanuary 2024 10:28am [facility] Work Phone: [phone] Evaluation note* Diagnosis Onset Date Resolution Status Admit Date Squamous cell carcinoma of oropharynx acuteJanuary 2024 9:25amTongue canceracuteJanuary 2024 9:25am Squamous cell carcinoma of oropharynxacuteJanuary 2024 10:28amEncounter for palliative careacuteFebruary 2024 8:00amSquamous cell carcinoma of oropharynxacuteFebruary 2024 8:00am [facility] Work Phone: [phone] Evaluation note* Diagnosis Onset Date Resolution Status Admit Date Squamous cell carcinoma of oropharynx acuteJanuary 2024 9:25amTongue canceracuteJanuary 2024 9:25am Squamous cell carcinoma of oropharynxacuteJanuary 2024 10:28amEncounter for palliative careacuteFebruary 2024 8:00amSquamous cell carcinoma of oropharynxacuteFebruary 2024 8:00amCancer associated painacuteFebruary 2024 7:36amNauseaacuteFebruary 2024 7:36amSquamous cell carcinoma of oropharynxacuteFebruary 2024 7:36amSquamous cell carcinoma of oropharynx acuteFebruary 2024 8:29amTongue canceracuteFebruary 2024 8:29am [facility] Work Phone: [phone] [facility] [place] [address] Cancer Center Note Signed Patient: Jeremie Bennett MR#: [id number] : 1940 Acct:[id number] Age/Sex: 83 / M Type: REG AMB [...] by IHC was equivocal. As per the [facility] tumor board recommendation is either doing [...] an 83-year-old gentleman who lives in [facility] was referred to our medical oncology office from 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 ENT and underwent a biopsy. He [...] positive squamous cell carcinoma. Tumor board at [facility] and the recommended concurrent chemoradiation. Past [...] with concurrent chemoradiation. Since he lives in [place] he was referred by Dr. Mary Ly from ENT at [facility] to our medical oncology and radiation oncology at [facility]. He is referred to medical oncology for [...] PO DAILY aspirin 81 mg PO DAILY bigdxes-ojtwyekijkitn-bfuddpns 250-250-65 mg (Excedrin Migraine) 1 tab PO [...] yellow fever card, magnet, caregiver resource list, [facility] nutrition guide, and cancer rehabilitation pamphlet [...] to have pace maker replaced 07/10/2024 at [facility]. [facility] Medical History Medical History (Updated [...] MD DD/ 0953 Signed By: 06/14/24 1106 [facility]01-20-2025 Hospital Discharge instructions* Discharge Instructions* Bob [...] questions related to your procedure: Please call [phone] between the hours of 7:00am-5:00pm Wednesday through Wednesday. Please call [phone] after 5:00pm and on weekends and holidays. In the event of an emergency call 911 or go to your nearest emergency room. documented in this [facility] Work Phone: 1(732) 420-396901-20-2025 Miscellaneous Notes* Post-Procedure Note - Juan Albright [...] and Time Out: Procedure Location procedure [facility] - Pre-procedure Verification completed TIME OUT - Final Verification completed immediately prior to procedure start DEBRIEF completed General Information: Date/Time of Procedure: 06/05/24 at 4:17 PM Indication(s): Hx of SCC, enlarged left cervical chain lymph node Findings: See PACS Procedure performed by: Juan Albright MD Automotive Electrician(s): Dr. Gaby Perez MD Estimated Blood Loss [...] Albright MD, PGY-6 Interventional Radiology IR pager: [phone] NON-Urgent hvac operations technician weekends and after hours weekdays (5pm - 5am) IR pager: [phone] Urgent & emergent hvac operations technician weekends and after hours weekdays (5pm-7am) IR pager: [phone] * Pre-Procedure Note - Juan Albright MD [...] by mouth once daily., Disp: , Rfl: ebrhemnbyv-jmthwgfhstzur-bjwc 50-325-40 mg tablet, Take 1 tablet by [...] been discussed with the patient and/or their outbound call center representative. All questions answered and they agree to proceed. Juan Albright MD, PGY-6 Vascular & Interventional Radiology IR pager: [phone] NON-Urgent hvac operations technician weekends and after hours weekdays (5pm - 5am) IR pager: [phone] Urgent & emergent hvac operations technician weekends and after hours weekdays (5pm-7am) IR pager: [phone] documented [facility] Work Phone: [phone] Note* Post-Procedure Note - Juan Albright MD [...] PACS Procedure performed by: Juan Albright MD Automotive Electrician(s): Dr. Gaby Perez MD Estimated Blood Loss [...] Albright MD, PGY-6 Interventional Radiology IR pager: [phone] NON-Urgent hvac operations technician weekends and after hours weekdays (5pm - 5am) IR pager: [phone] Urgent & emergent hvac operations technician weekends and after hours weekdays (5pm-7am) IR pager: [phone] [facility] Work Phone: 1([phone]) 631-653801-20-2025 Note* Pre-Procedure Note - Juan Albright MD [...] by mouth once daily., Disp: , Rfl: yryizgxxhh-yirbjrrtbafbq-tqvz 50-325-40 mg tablet, Take 1 tablet by [...] been discussed with the patient and/or their outbound call center representative. All questions answered and they agree to proceed. Juan Albright MD, PGY-6 Vascular & Interventional Radiology IR pager: [phone] NON-Urgent hvac operations technician weekends and after hours weekdays (5pm - 5am) IR pager: [phone] Urgent & emergent hvac operations technician weekends and after hours weekdays (5pm-7am) IR pager: [phone] [facility] Work Phone: 1(203) [phone] History of Present illness Narrative* Mary Ly MD - 05/30/2024 11:45 AM EST HEAD AND NECK SURGERY FOLLOW UP [place] [...] lymph node Procedure Note: Diagnostic Flexible Laryngoscopy (71422) Indication: patient symptoms requiring evaluation of pharyngeal/laryngeal/hypopharyngeal [...] proceed with concurrent chemoradiation. [place] in [place], referrals to med onc and rad onc placed today to be setup locally at [facility]. I have also reached out to Dr Gray - He will need iris dx testing done prior to starting treatment - I will follow up the biopsy and call him with results - I will see him after treatment for cancer surveillance Mary Ly MD 24 modifier used due to extensive discussion and coordination of cancer treatment documented in this [facility] Work Phone: 1(466) 505-150612-26-2024 Hospital Discharge instructions* Discharge Instructions* Jessica Carreon [...] to your nearest ED. 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] Procedures Direct Laryngoscopy 62497 - [place] LARYNGOSCOPY W/WO TRACHEOSCOPY DX EXCEPT Bronchoscopy 84617 - [place] [facility] INCL FLUOR GDNCE DX W/CELL WASHG SPX Esophagoscopy 98148 - [place] ESOPHAGOSCOPY FLEXIBLE TRANSORAL DIAGNOSTIC Surgeons Panel 1: * Mary Ly - Primary Panel 2: * Mary Ly - Primary Resident/Fellow/Other Automotive Electrician: Surgeons and Role: Panel 1: * Riana Vela PA-C - Resident - Assisting Staff: Director Of Rehabilitative Services: Jameel Camargo Person: Simon Camargo Person: Reggie Anesthesia Staff: Anesthesiologist: Gabo Munoz MD Waste Reclaimer: Candice Aceves MD; Delvis Santana MD Procedure [...] scrubbed for the entire procedure. Mary Ly 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] Procedures Direct Laryngoscopy 16056 - [place] LARYNGOSCOPY W/WO TRACHEOSCOPY DX EXCEPT Bronchoscopy 99368 - [place] [facility] INCL FLUOR GDNCE DX W/CELL WASHG SPX Esophagoscopy 83115 - [place] ESOPHAGOSCOPY FLEXIBLE TRANSORAL DIAGNOSTIC Surgeons Panel 1: * Mary Ly - Primary Panel 2: * Mary Ly - Primary Resident/Fellow/Other Automotive Electrician: Surgeons and Role: Panel 1: * Riana Vela PA-C - Resident - Assisting Staff: Director Of Rehabilitative Services: Jameel Scrashwin Person: Simon Scrub Person: Reggie Anesthesia Staff: Anesthesiologist: Gabo Munoz MD Waste Reclaimer: Candice Aceves MD; Delvis Santana MD Procedure [...] entire procedure. Mary Ly documented in this encounterSt. [facility] Work Phone: 1([phone]) 358-421412-26-2024 History and physical note* Jessica Carreon MD [...] Ly MD at 05/11/2024 6:[address] [facility] Work Phone: 1([phone]) 478-456012-26-2024 History and physical note* Jessica Carreon MD [...] 05/11/2024 6:34 AM EST documented in this encounterSt. [facility] Work Phone: 1(755) 415-695712-24-2024 History of Present illness Narrative* Mary Guevara - 05/09/2024 10:02 AM EST Pharmacy Medication History Review Jeremie Bennett is a 83 y.o. male who is planned to be admitted for Malignant neoplasm of floor of mouth. Pharmacy called the patient prior to their scheduled procedure and reviewed the patient's tvhyb-xa-uptsxafww medications for accuracy. Medications ADDED: none Medications [...] used to complete the med history include: [facility] Pharmacy dispense history Patient interview Chart Review Care Everywhere Below are additional concerns with the patient's SAFETY TECHNICIAN list. Patient states they are taking #1 tablet of metformin XR 500mg once daily. L.F. 02/24/24 #200/100d (prescription states #1BID) Patient states they are taking #1 tablet of rosuvastatin 10mg daily. L.F. 05/31/23 #90/90d. There is no recent fill history to confirm [facility] Please reach out via Secure Chat for questions documented in this [facility] Work Phone: 1(416) 706-470412-10-2024 NoteUT Electrophysiology Consult Note [place] [facility] - [facility] Reason for visit: Device at [facility] HPI: Jeremie Bennett is a 83 y.o. year old with past medical history of hypertension, hyperlipidemia CAD was noted to have a pacemaker placed by Dr. Shi for ?SND which is approaching [facility]. He has previously been [...] Use: Medium Risk (05/11/2024) Received from [facility] Patient History Smoking Tobacco Use: Former Smokeless Tobacco Use: Former Passive Exposure: Not on file Alcohol Use: Not on file Financial Resource Strain: Not on file Food Insecurity: Not on file Transportation Needs: Not on file Physical Activity: Not on file Stress: Not on file Social Connections: Not on file Intimate Partner Violence: Unknown (07/08/2023) [place] Safety & Environment Fear of Current or Ex-Partner: Not on file Emotionally Abused: Not on file Physically Abused: Not on file Sexually Abused: Not on file Physically or Sexually Abused: Not on file Depression: Not at risk (04/07/2024) Received from [facility] PHQ-2 Patient Health Questionnaire-2 Score: 0 Housing [...] TSH , T3 TO (more content not included)...[facility]12-02-2024 NotePatient Education Nutrition BMI for Adults [...] for Disease Control and Prevention: cdc.gov ??? [place] Heart Association: heart.org ??? National Heart, Lung, and Blood [place]: nhlbi.nih.gov This information is not intended to replace advice given to you by your health care provider. Make sure you discuss any questions you have with your health care provider. Document Revised: 01/21/2023 Document Reviewed: 01/14/2023 [employer] Patient Education ? 2023 ShowMe.[facility] 04-07-2024 History of Present illness Narrative* [...] lymph node Procedure Note: Diagnostic Flexible Laryngoscopy (37344) Indication: patient symptoms requiring evaluation of pharyngeal/laryngeal/hypopharyngeal [...] for this, has a pacemaker and seeing school bus inspector soon. Will follow up biopsy and call him with the results Mary Ly MD documented in this [facility] Work Phone: 1(689) 649-303211-13-2024 History of Present illness Narrative* Luc Ham MD - 03/29/2024 10:20 AM EST Subjective Patient ID: Jeremie Bennett is a 83 y.o. 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) 01/27/2024 BMI 29.0-29.9,adult 01/27/2024 Cardiac dysrhythmia 04/03/2022 Ventricular tachycardia ([facility]/HCC) 01/27/2024 Carpal tunnel syndrome, left 01/27/2024 Carpal tunnel syndrome, right 01/27/2024 Cervical lymphadenopathy 01/27/2024 Spondylosis of cervical spine 01/27/2024 Cervical vertebral fusion 04/03/2022 Spondylosis of lumbar spine 01/27/2024 Chronic venous insufficiency 01/27/2024 Colon polyp 01/27/2024 Type 2 diabetes mellitus ([facility]/HCC) 01/27/2024 Type 2 diabetes mellitus without complication, without long-term current use of insulin ([facility]) 04/14/2023 Diabetic autonomic neuropathy associated with type 2 diabetes mellitus ([facility]/HCC) 04/14/2023 Diabetic peripheral neuropathy associated with type 2 diabetes mellitus (CMS/HCC) 01/27/2024 Diverticulosis 01/27/2024 Dysphagia 04/14/2023 Essential hypertension (CMS/HCC) 04/03/2022 Excessive daytime sleepiness 01/27/2024 FH: stomach cancer 04/14/2023 Chronic GERD 01/27/2024 GERD with apnea 01/27/2024 Glaucoma (CMS/HCC) 04/03/2022 Hemorrhoids 01/27/2024 History of colon polyps 01/27/2024 History of malignant neoplasm of prostate 04/03/2022 UTE (hard of hearing) 04/03/2022 Hypercholesterolemia (CMS/HCC) 04/03/2022 [...] Type 2 diabetes mellitus with diabetic neuropathy (CMS/[facility]) Past Surgical History: Procedure Laterality Date CARDIAC CATHETERIZATION 08/30/2019 CATARACT EXTRACTION Bilateral CERVICAL FUSION 2016 C3-C4-C5 CHOLECYSTECTOMY HERNIA REPAIR 2002 INSERT / REPLACE / REMOVE PACEMAKER 2015 pacemaker insertion OTHER SURGICAL HISTORY 2005 ablation OTHER SURGICAL HISTORY 2007 sphincterotomy [place] CHOLECYSTECTOMY 02/2020 Laparoscopic Cholecystectomy - [place] IMPLANT ARTIFICIAL SPHINCTER 2017 PROSTATE 2000 TONSILLECTOMY 1970 Allergies Allergen Reactions Niacin Itching and Unknown Wound Dressing Adhesive Unknown Current Outpatient Medications on File Prior to Visit Medication Sig Dispense Refill amLODIPine (Norvasc) 5 MG tablet Take 5 mg by mouth in the morning. aspirin 81 MG EC tablet Take 81 mg by mouth in the morning. lebgotmdop-pzlemdciqkagt-dlfrnnyp 50-325-40 MG tablet Take 1 tablet by [...] completed for surveillance exams. documented in this encounterI-70 Community [id number] History of Present illness Narrative* Kandi Rodriguez, [...] PATIENT PRESENTS WITH AN IMPLANTABLE OR ATTACHED PLASTER MECHANIC: No CREATININE: No results found for: CREAT [...] be found usingthis link: [email or web address]%[email or web address] SIGNATURE: Kandi RT Jennifer(R) PATIENT NAME: Jeremie Bennett DATE: March 27, 2024 TIME: 10:14 AM PAGER/CONTACT #: documented in this encounterL[facility]11-11-2024 NoteHNO ID: [id number] Author: KANDI RODRIGUEZ RT(R) Service: ? Author [...] PATIENT PRESENTS WITH AN IMPLANTABLE OR ATTACHED PLASTER MECHANIC: No CREATININE: No results found for: CREAT [...] found using this link: [email or web address]%[email or web address] SIGNATURE: Kandi RT Jennifer(R) PATIENT NAME: Jeremie Bennett DATE: March 27, 2024 TIME: 10:14 AM PAGER/CONTACT #:[facility]10-23-2024 History of Present illness Narrative* Luc Ham [...] History of malignant neoplasm of prostate 04/03/2022 UTE (hard of hearing) 04/03/2022 Hypercholesterolemia (CMS/HCC) 04/03/2022 [...] GERD (gastroesophageal reflux disease) HTN (hypertension) (CMS/[facility]) Migraine headache ([facility]) Pain management Paronychia of great toe Personal history of other medical treatment 04/2018 Sinus tarsi syndrome of right foot Sleep apnea Toe pain, right Type 2 diabetes mellitus with diabetic neuropathy ([facility]) Past Surgical History: Procedure Laterality Date CARDIAC CATHETERIZATION 08/30/2019 CATARACT EXTRACTION Bilateral CERVICAL FUSION 2016 C3-C4-C5 CHOLECYSTECTOMY HERNIA REPAIR 2002 INSERT / REPLACE / REMOVE PACEMAKER 2015 pacemaker insertion OTHER SURGICAL HISTORY 2005 ablation OTHER SURGICAL HISTORY 2007 sphincterotomy [place] CHOLECYSTECTOMY 02/2020 Laparoscopic Cholecystectomy - [place] IMPLANT ARTIFICIAL SPHINCTER 2017 PROSTATE 2000 TONSILLECTOMY 1970 Allergies Allergen Reactions Niacin Itching and Unknown Wound Dressing Adhesive Unknown Current Outpatient Medications on File Prior to Visit Medication Sig Dispense Refill amLODIPine (Norvasc) 5 MG tablet Take 5 mg by mouth in the morning. aspirin 81 MG EC tablet Take 81 mg by mouth in the morning. smlsemlsek-ixueynoqegkmv-iziuidrl 50-325-40 MG tablet Take 1 tablet by [...] suspicious for the primary documented in this [facility]10-21-2024 Telephone encounter Note* Telephone Encounter - Antoinette Ham - 03/06/2024 11:18 AM EDT Pt is scheduled for 03/08/[address] Ham. [facility] [id number] Miscellaneous Notes* Telephone Encounter - Antoinette Ham - 03/06/2024 11:18 AM EDT Pt is scheduled for 03/08/[address] Ham. * Telephone Encounter - Luc Ham MD - 03/06/2024 10:18 AM EDT Move up pt's appt documented in this [facility]10-21-2024 Telephone encounter Note* Telephone Encounter - Luc Ham MD - 03/06/2024 10:18 AM EDT Move up pt's appt [facility] Work Phone: 1(436) 845-367610-02-2024 History of Present illness Narrative* Luc Ham [...] Diagnosis Date Noted Arteriosclerosis of coronary artery ([facility]) 01/20/2019 Arthritis of ankle, right 01/27/2024 Arthritis [...] complication, without long-term current use of insulin (CMS/[facility]) 04/14/2023 Diabetic autonomic neuropathy associated with type 2 diabetes mellitus (CMS/HCC) 04/14/2023 Diabetic peripheral neuropathy associated with type 2 diabetes mellitus (CMS/HCC) 01/27/2024 Diverticulosis 01/27/2024 Dysphagia 04/14/2023 Essential hypertension (CMS/HCC) 04/03/2022 Excessive daytime sleepiness 01/27/2024 FH: stomach cancer 04/14/2023 Chronic GERD 01/27/2024 GERD with apnea 01/27/2024 Glaucoma (CMS/HCC) 04/03/2022 Hemorrhoids 01/27/2024 History of colon polyps 01/27/2024 History of malignant neoplasm of prostate 04/03/2022 UTE (hard of hearing) 04/03/2022 Hypercholesterolemia ([facility]/HCC) 04/03/2022 Hyperlipidemia (CMS/HCC) 04/03/2022 Insomnia 04/03/2022 Internal derangement of right knee 01/27/2024 Irregular bowel habits 04/14/2023 Lump on neck 04/14/2023 Migraines (CMS/HCC) 04/03/2022 Aortic valve regurgitation 04/26/2019 Mitral valve regurgitation 04/26/2019 Neuropathy 04/03/2022 NPH (normal pressure hydrocephalus) ([facility]) 04/03/2022 Central sleep apnea 01/27/2024 Obstructive sleep [...] Presence of cardiac pacemaker 03/14/2021 Prostate cancer ([facility]/HCC) 04/03/2022 Prostatitis 04/14/2023 Skin cancer 04/03/2022 Swollen [...] soiling 04/03/2022 Fecal urgency 04/14/2023 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) 01/27/2024 Lower abdominal pain 04/03/2022 Pain of [...] GERD (gastroesophageal reflux disease) HTN (hypertension) (CMS/[facility]) Migraine headache ([facility]) Pain management Paronychia of great toe Personal history of other medical treatment 04/2018 Sinus tarsi syndrome of right foot Sleep apnea Toe pain, right Type 2 diabetes mellitus with diabetic neuropathy ([facility]) Past Surgical History: Procedure Laterality Date CARDIAC CATHETERIZATION 08/30/2019 CATARACT EXTRACTION Bilateral CERVICAL FUSION 2016 C3-C4-C5 CHOLECYSTECTOMY HERNIA REPAIR 2001 INSERT / REPLACE / REMOVE PACEMAKER 2015 pacemaker insertion OTHER SURGICAL HISTORY 2004 ablation OTHER SURGICAL HISTORY 2007 sphincterotomy [place] CHOLECYSTECTOMY 02/2020 Laparoscopic Cholecystectomy - [place] IMPLANT ARTIFICIAL SPHINCTER 2017 PROSTATE 2000 TONSILLECTOMY 1970 Allergies Allergen Reactions Niacin Itching and Unknown Wound Dressing Adhesive Unknown Current Outpatient Medications on File Prior to Visit Medication Sig Dispense Refill amLODIPine (Norvasc) 5 MG tablet Take 5 mg by mouth in the morning. aspirin 81 MG EC tablet Take 81 mg by mouth in the morning. ftbnvmfrnu-sxlaxtoxtilcw-ogigtfeq 50-325-40 MG tablet Take 1 tablet by [...] a core needle bx documented in this encounterI-70 Community [id number] History of Present illness Narrative* NILAY Morales [...] -he denies any weakness or trouble with inventory control assistant Chronic back/neck pain -his neck pain has been about the same since last visit -he denies pain into the arms -he admits a few CORTEZ -he has 3-4 per month -CORTEZ located occipital -he is wanting an abortive medication -he was on Fiorcet and states this helped -Back pain in low back -he is seeing pain management , Dr. Robins in [place] -he is following up with them next [...] Oral, Daily aspirin 81 mg, Oral, Daily dhsxzddvvz-vzbxajwfodels-dyjzfwqr 50-325-40 MG tablet 1 tablet, Oral, Every [...] (CMS/HCC) 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CMS/HCC) 01/27/2024 Migraine headache ([facility]/HCC) Mixed incontinence 01/27/2024 Other specified disorders of synovium, right ankle and foot Pain management Pain of upper abdomen 04/03/2022 Paronychia of great toe bilateral Peptic ulcer 04/03/2022 Personal history of other medical treatment 04/2018 body map scanned in for biopsies and trtm Prostate cancer ([facility]/HCC) Right flank pain 04/03/2022 Sinus tarsi syndrome of right foot Sleep apnea Toe pain, right Type 2 diabetes mellitus with diabetic neuropathy ([facility]/HCC) Ventricular tachycardia ([facility]) Past Surgical History: Past Surgical History: Procedure Laterality Date CARDIAC CATHETERIZATION 08/30/2019 CATARACT EXTRACTION Bilateral CERVICAL FUSION 2016 C3-C4-C5 CHOLECYSTECTOMY HERNIA REPAIR 2002 INSERT / REPLACE / REMOVE PACEMAKER 2015 pacemaker insertion OTHER SURGICAL HISTORY 2005 ablation OTHER SURGICAL HISTORY 2007 sphincterotomy [place] CHOLECYSTECTOMY 02/2020 Laparoscopic Cholecystectomy - [place] IMPLANT ARTIFICIAL SPHINCTER 2017 PROSTATE 2000 TONSILLECTOMY [...] 2+ 2+ Patellar 2+ 2+ Coordination Right: Opsuiv-ju-tivq normal.Left: Ftfbod-cz-qiuj normal. Gait Casual gait is normal including [...] up in 6 months documented in this encounterI-70 Community [id number] Telephone encounter Note* Telephone Encounter - Carlitos Beckman - 02/07/2024 9:29 AM EDT Images from the original note were not included. IPMN surveillance. Review OSH images and advise please Chacho Lalit MRI Chol[facility]logram Pancreatography 11/09/2023 [facility]09-23-2024 Miscellaneous Notes* Telephone Encounter - [...] and it was completed in 12/2023 at [facility]. Our office will request results for Dr. Pringle's review. Follow up will be determined upon Dr. Pringle's review of results. documented in this encounterLake[facility]09-20-2024 Telephone encounter Note * Telephone Encounter - Carlitos Beckman - 02/04/2024 9:03 AM EDT Surveillance imaging completed at OSH for IPMN surveillance. [facility]09-18-2024 Telephone encounter Note* Telephone Encounter - Carlitos Beckman - 02/02/2024 8:57 AM EDT Call to patient to discuss plan of care. Surveillance imaging needed to evaluate pancreas cyst. Dx: IPMN Per Dr. Vaishali Pringle- recommended repeat MRI in 1 year Last imaging 02/17/2024 Orders placed: MRI Pancreas w/wo IVCON Patient's local GI ordered MRI and it was completed in 12/2023 at [facility]. Our office will request results for Dr. Pringle's review. Follow up will be determined upon Dr. Pringle's review of results. [facility]09-17-2024 History of Present illness Narrative* [...] Diagnosis Date Noted Arteriosclerosis of coronary artery ([facility]) 01/20/2019 Arthritis of ankle, right 01/27/2024 Arthritis [...] History of malignant neoplasm of prostate 04/03/2022 UTE (hard of hearing) 04/03/2022 Hypercholesterolemia (CMS/HCC) 04/03/2022 [...] Swollen lymph nodes 04/14/2023 Thoracic aortic ectasia (CMS/[facility]) 01/27/2024 Vitamin D deficiency 04/03/2022 Resolved Ambulatory [...] Diverticulitis GERD (gastroesophageal reflux disease) HTN (hypertension) ([facility]) Migraine headache ([facility]) Pain management Paronychia of great toe Personal history of other medical treatment 04/2018 Sinus tarsi syndrome of right foot Sleep apnea Toe pain, right Type 2 diabetes mellitus with diabetic neuropathy ([facility]) Past Surgical History: Procedure Laterality Date CARDIAC CATHETERIZATION 08/30/2019 CATARACT EXTRACTION Bilateral CERVICAL FUSION 2016 C3-C4-C5 HERNIA REPAIR 2001 INSERT / REPLACE / REMOVE PACEMAKER 2014 pacemaker insertion OTHER SURGICAL HISTORY 2004 ablation OTHER SURGICAL HISTORY 2006 sphincterotomy [place] CHOLECYSTECTOMY 02/2020 Laparoscopic Cholecystectomy - [place] IMPLANT ARTIFICIAL SPHINCTER 2016 PROSTATE 2000 TONSILLECTOMY 1970 Allergies Allergen Reactions Niacin Itching and Unknown Wound Dressing Adhesive Unknown Current Outpatient Medications on File Prior to Visit Medication Sig Dispense Refill amLODIPine (Norvasc) 5 MG tablet Take 5 mg by mouth in the morning. aspirin 81 MG EC tablet Take 81 mg by mouth in the morning. rfyfucqrae-enhhgaeghqtsi-uycjwmez 50-325-40 MG tablet Take 1 tablet by [...] actual location and nature documented in this encounterI-70 Community [id number] Hospital Discharge instructions Patient Education 09/17/2023 09:05:07 [...] grapefruit, pineapple, and nury. Vegetables Deep-fried vegetables. [place] Citizen fries. Any vegetables prepared with added [...] provider. Document Revised: 11/11/2020 Document Reviewed: 11/11/2020 [employer] Patient Education 2022 ShowMe. Follow Up Care 06/25/2023 12:06:59 With:Sammi CASON, Jaiden Douglas [facility], [facility] Address: [address] [place] [address], [address] [place] [address]- [phone] When:3 months [facility] 01-15-2024 Evaluation note* Encounter Date [...] months. A prescription was sent to the [employer] for new supplies throughout the year. He [...] sleepiness, or poor response to treatment. . [employer] Other 01-09-2024 Hospital Discharge instructions Patient Education [...] grapefruit, pineapple, and nury. Vegetables Deep-fried vegetables. [place] Citizen fries. Any vegetables prepared with added [...] provider. Document Revised: 11/11/2020 Document Reviewed: 11/11/2020 [employer] Patient Education 2022 ShowMe. Follow Up Care 02/25/2023 14:06:51 With:Anjali Ruby CNP Address: When:1 month [facility] 11-20-2023 Miscellaneous Notes* Telephone Encounter - Lolly Dumont - 04/05/2023 9:44 AM EST Received records from [facility]. Reports for imaging listed below scanned. Images pushed through 09/27/2019 US Right Upper Quad 03/31/2020 CT ABD/PEL US Right Upper Quad [facility] MRI Abdomen 02/22/2023 US Soft Tissue Head & Neck Received many misc. labs & ER reports Operative Note & pathology from Laparoscopic Cholecystectomy Patient seen 04/01, please review, thank you! documented in this encounterLakehealth [facility] Center11-16-2023 Nurse Note* Debby Holland MA - 04/01/2023 1:13 PM EST What is the reason for your visit today? Consult for [facility] Who is your referring physician? Anjali Ruby CNP Are you having poor oral intake? NO Have you had unintentional weight loss of 15 lbs/7 Kg in the last 3-6 months? NO Bowels: off and on Wound: Temperature: No Drains: No documented in this encounterLakehealth [facility] Center11-16-2023 History of Present illness Narrative* [...] Level: 4 - Moderate documented in this encounterLakehealth [facility] Center11-16-2023 NoteHNO ID: [id number] Author: Vaishali Pringle MD Service: ? Author [...] Pringle MD Medical De (more content not included)...[facility]10-25-2023 Hospital Discharge instructions Patient Education 03/10/2023 09:19:04 [...] Follow these instructions at home: Medicines Take moht-cda-tfjrkny and prescription medicines only as told by [...] Watch your condition for any changes. Take hdxg-vse-mlgqfaj and prescription medicines only as told by [...] provider. Document Revised: 06/21/2020 Document Reviewed: 09/11/2019 [employer] Patient Education 2022 ShowMe. Follow Up Care 03/09/2023 09:58:32 With:Anjali Ruby CNP Address: When:1 to 2 weeks Comments:Following EGD. [facility] 10-12-2023 Hospital Discharge instructions Patient [...] Follow these instructions at home: Medicines Take buzf-osk-llzuiaa and prescription medicines only as told by your health care provider. If you were prescribed an antibiotic medicine, take it as told by your health care provider. Do notstop taking the antibiotic even if you start to feel better. Eating and drinking Make any diet changes as told by your health care provider. Work with a diet and nutrition partner (dietitian) to create an eating plan that [...] provider. Document Revised: 12/21/2020 Document Reviewed: 12/21/2020 [employer] Patient Education 2022 ShowMe. Follow Up Care 02/22/2023 16:17:47 With:Anjali Ruby CNP Address: When:3 months [facility] 09-15-2023 Evaluation note* Encounter Date [...] months. A prescription was sent to the [employer] for new supplies throughout the year. He [...] and we will continue to monitor. 15 Jan, 2023OtherCall if any questions or problems. Patient is advised to work on healthy diet choices and appropriate servings, weight control, regular exercise as directed, and reduce fat intake. Use machine regularly, and keep up with mask changes as needed. Call if problems with mask toleration, increased sleepiness, or poor response to treatment. . [employer] Other 08-29-2023 Hospital Discharge instructions Patient Education [...] including vitamins, herbs, eye drops, creams, and uwnn-bxj-tzxnkjz medicines. Any problems you or family members [...] provider tells you to take them. Taking nbuf-vvf-akfzqmf medicines, vitamins, herbs, and supplements. General instructions [...] provider. Document Revised: 04/27/2022 Document Reviewed: 12/24/2021 [employer] Patient Education 2022 ShowMe. Follow Up Care 12/28/2022 08:53:11 With:Anjali Ruby CNP Address: When:1 to 2 weeks Comments:Following EGD/Colonoscopy. [facility] 05-30-2023 Evaluation note* Encounter Date [...] sleepiness, or poor response to treatment. . [employer] Other 05-09-2023 Hospital Discharge instructions Patient Education [...] managed at home with rest, fluids, and mjtd-uun-sjlfycp medicines. Serious symptoms may be treated in [...] water are not available, use alcohol-based hand supervisor stripping. Make sure that all people in your [...] managed at home with rest, fluids, and zemr-lqd-zbtxpyb medicines. This information is not intended to replace advice given to you by your health care provider. Make sure you discuss any questions you have with your health care provider. Document Revised: 04/23/2022 Document Reviewed: 04/23/2022 [employer] Patient Education 2022 ShowMe. Follow Up Care 09/22/2022 16:24:11 With:Demetrius Cooper Address[address] [place] [phone] Business (2) When:09/25/2022 18:12:09 [facility]05-09-2023 Evaluation note* Encounter Date Diagnosis Assessment [...] no improvement in 2 to 3 days. [employer] Other 04-11-2023 NoteCONSULTATION CONSULTATION DATE: 08/25/2022 TO: [...] our patients to inform us about any enas-kzd-olczblz medications or herbal remedies/nutritional supplements/alternative remedies. 2. [...] treatment options with their primary care provider.[facility] [id number] Evaluation note * Encounter Date Diagnosis Assessment [...] symptoms if he does not take his cqhi-zpf-poxczxk hypnotic, sleep hygiene issues may also be [...] his neuropathy pain Jul,oronary artery disease involving [place] heart without angina pectoris, unspecified vessel or [...] he does have a defibrillator in place [employer] Other 03-09-2023 NoteCONSULTATION CONSULTATION DATE: 07/23/2022 HISTORY [...] gain authorization to hold the Plavix pre-procedure.[facility] [id number] NotePROCEDURE: XR ANKLE RT MIN 3 VIEWS COMPARISON: 08/22/2020 HISTORY: Pain of right ankle joint FINDINGS: BONES:No acute fracture or dislocation. Moderate enthesopathic spurring of the calcaneus. Degenerative changes with bone fragments along the inferior medial malleolus, stable. SOFT TISSUES:Negative. No visible soft tissue swelling. EFFUSION:None visible. OTHER: Negative. IMPRESSION: Stable degenerative changes Electronically authenticated by: ERWIN GARCIA Date: 2022-07-22 10:37[facility] [id number] NotePROCEDURE: XR FOOT RT MIN 3 VIEWS [...] authenticated by: CLARISSA GARCIA Date: 2022-06-16 15:25[facility] [id number] Hospital Discharge instructions Patient Education 05/26/2022 13:46:25 [...] Address: [facility] [address] [place] [address]- Business (1) When: Unknown Comments:Office will call to schedule follow up [facility]08-11-2022 NoteCONSULTATION PROCEDURE DATE: 12/25/2021 PRE AND [...] will be followed up in the clinic.[facility] 12-25-2021 NoteCONSULTATION CONSULTATION DATE: 12/25/2021 [...] recently seen at an urgent care in [place] for left thumb pain and joint swelling. [...] in three months' time unless otherwise indicated.[facility] [id number] Evaluation note* Encounter Date Diagnosis Assessment Notes [...] will help you get into a specialist. [employer] Other Chief complaint+Reason for visit Narrative* Chief Complaint N54.2 Self Referral [facility] Work Phone: Chief complaint+Reason for visit Narrative* Chief Complaint N54.2 Self Referral [id number] [id number] m54.2 [facility] Work Phone: Chief complaint+Reason for visit Narrative* Chief Complaint N54.2 Self Referral [id number] [id number] m54.2 isidro, - [facility] Work Phone: Discharge summary Author Zeke Brennan [facility] HospitalNote Date/TimeApril 2024 2:14pm[address] [address] Discharge Summary Signed Patient: Jeremie Bennett MR#: [id number] : 1940 Acct:[id number] Age/Sex: 83 / M Adm Date: 5 Loc: Room: 7C7034-[address]: Zeke Brennan MD Copies to: [...] he was discharged home stable condition the [facility] with few more days of oral antimicrobial [...] Continuity of Care Document Health Concerns: [facility] screening has identified you as FRAIL [...] Strong:Four Ways to Beat the Frailty Risk [email or web address]/st jk-covoyz-qvxu- mxsa-xg-ezzx-ccm-kjkslmf-lwlb Exam Physical Exam Vital Signs: Temp Pulse [...] % (Auto) 75.8, Lymph % (Auto) 9.0, Briscoe % (Auto) 13.6, Eos % (Auto) 1.0, Baso % (Auto) 0.6, Nucleat RBC Rel Count 0.1, Neut # (Auto) 4.7, Lymph # (Auto) 0.6 L, Briscoe # (Auto) 0.8, Eos # (Auto) 0.1, [...] % (Auto) 77.0, Lymph % (Auto) 10.5, Briscoe % (Auto) 11.3, Eos % (Auto) 0.7, Baso % (Auto) 0.5, Nucleat RBC Rel Count 0.2, Neut # (Auto) 5.7, Lymph # (Auto) 0.8 L, Briscoe # (Auto) 0.8, Eos # (Auto) 0.1, Baso # (Auto) 0.0, Monocyte Dist Width 23.19 H, ESR 42 H, PT 12.9, INR 1.1, Lactic Acid 0.8, C-Reactive Prot, Quant Cancelled 08/20/24 12:20: PHA Creatinine Clear 58.71, Sodium 136, Potassium 3.7, Chloride 104, Carbon Rwcbxuf82.4, Anion Gap 10.3, BUN 16, Creatinine 0.85, Est GFR (CKD- EPI) > 60.0, Glucose 106 H, Calcium 8.4 L, Total Bilirubin 0.6, AST 18, ALT 17, Alkaline Phosphatase 66, C-Reactive Prot, Quant 3.3 H, Total Protein 5.9 L, Albumin 3.4 L, Globulin 2.5, Albumin/Globulin Ratio 1.4 Documented By: Zeke Brennan MD 08/21/24 1407 Signed By: <Electronically signed by Zeke Brennan MD> 08/21/24 1414 [facility] Work Phone: Evaluation + Plan note No data available for this section [facility] Plan note Future Appointments Appointment Date:11/23/2022 09:00:00 AM Scheduled Provider:Demetrius Cooper MD Location:[facility] Appointment Type: Open [facility] Future Appointments Appointment Date:12/15/2022 12:00:00 PM Scheduled Provider:Anjali Ruby CNP Location:[facility] Appointment Type:[facility] New Patient Appointment Date:05/31/2023 09:00:00 AM Scheduled Provider:Demetrius Cooper MD Location:[facility] Appointment Type: Open Appointment Date:11/08/2023 01:00:00 PM Scheduled Provider: Location:[facility] Appointment Type: Medicare Wellness Subsequent Future Scheduled Tests Laboratory* HgbA1c 11/23/22 * CBC w/ Auto Diff 11/23/22 * Comprehensive Metabolic Panel 11/23/22 * Lipid Panel 11/23/22 [facility] Future Appointments Appointment Date:05/31/2023 09:00:00 AM Scheduled Provider:Demetrius Cooper MD Location:[facility] Appointment Type: Open Appointment Date:11/08/2023 01:00:00 PM Scheduled Provider: Location:[facility] Appointment Type: Medicare Wellness Subsequent Future Scheduled Tests Laboratory* HgbA1c 11/23/22 * CBC w/ Auto Diff 11/23/22 * Comprehensive Metabolic Panel 11/23/22 * Lipid Panel 11/23/22 [facility] Future Appointments Appointment Date:05/31/2023 09:00:00 AM Scheduled Provider:Demetrius Cooper MD Location:[facility] Appointment Type: Open Appointment Date:11/08/2023 01:00:00 PM Scheduled Provider: Location:[facility] Appointment Type: Medicare Wellness Subsequent Future Scheduled Tests Laboratory* HgbA1c 11/23/22 * CBC w/ Auto Diff 11/23/22 * Comprehensive Metabolic Panel 11/23/22 * Lipid Panel 11/23/22 Radiology* CT Abdomen w/ Contrast 01/12/23 [facility] Evaluation + Plan note Future Appointments Appointment Date:05/03/2023 01:40:00 PM Scheduled Provider:Anjali Ruby CNP Location:[facility] Appointment Type:[facility] Follow Up Appointment Date:05/31/2023 09:00:00 AM Scheduled Provider:Demetrius Cooper MD Location:[facility] Appointment Type: Open Appointment Date:11/08/2023 01:00:00 PM Scheduled Provider: Location:[facility] Appointment Type: Medicare Wellness Subsequent Future Scheduled Tests Laboratory* HgbA1c 11/23/22 * CBC w/ Auto Diff 11/23/22 * Comprehensive Metabolic Panel 11/23/22 * Lipid Panel 11/23/22 [facility] Evaluation + Plan note Future Appointments Appointment Date:05/03/2023 01:40:00 PM Scheduled Provider:Anjali Ruby CNP Location:[facility] Appointment Type:[facility] Follow Up Appointment Date:05/31/2023 10:00:00 AM Scheduled Provider:[facility]: [facility] Appointment Date:11/08/2023 01:00:00 PM Scheduled Provider: Location:[facility] Appointment Type: Medicare Wellness Subsequent Future Scheduled Tests Laboratory* HgbA1c 11/23/22 * CBC w/ Auto Diff 11/23/22 * Comprehensive Metabolic Panel 11/23/22 * Lipid Panel 11/23/22 [facility] Hingialuation + Plan note Future Appointments Appointment Date:05/03/2023 01:40:00 PM Scheduled Provider:Anjali Ruby CNP Location:[facility] Appointment Type:[facility] Follow Up Appointment Date:05/31/2023 10:00:00 AM Scheduled Provider:Demetrius Cooper MD Location:[facility] Appointment Type: Open Appointment Date:11/08/2023 01:00:00 PM Scheduled Provider: Location:[facility] Appointment Type: Medicare Wellness Subsequent Diagnostic Tests Pending * O & P Exam, Routine 03/10/23 * Giardia lamblia, Direct Detection EIA 03/10/23 Future Scheduled Tests Laboratory* HgbA1c 11/23/22 * CBC w/ Auto Diff 11/23/22 * Comprehensive Metabolic Panel 11/23/22 * Lipid Panel 11/23/22 [facility] Future Appointments Appointment Date:05/31/2023 10:00:00 AM Scheduled Provider:Demetrius Cooper MD Location:[facility] Appointment Type: Open Appointment Date:06/25/2023 01:20:00 PM Scheduled Provider:Anjali Ruby CNP Location:[facility] Appointment Type:[facility] Follow Up Appointment Date:11/08/2023 01:00:00 PM Scheduled Provider: Location:[facility] Appointment Type: Medicare Wellness Subsequent Future Scheduled Tests Laboratory* HgbA1c 11/23/22 * CBC w/ Auto Diff 11/23/22 * Comprehensive Metabolic Panel 11/23/22 * Lipid Panel 11/23/22 [facility] evaluation + Plan note Future Appointments Appointment Date:10/21/2023 03:00:00 PM Scheduled Provider:Inez Henderson MD Location:[facility] Appointment Type:[facility] Follow Up Appointment Date:11/08/2023 01:00:00 PM Scheduled Provider: Location:[facility] Appointment Type:FM Medicare Wellness Subsequent Appointment Date:11/29/2023 10:15:00 AM Scheduled Provider:Demetrius Cooper MD Location:[facility] Appointment Type: Open Future Scheduled Tests Laboratory* U Protein/Creat Ratio 05/31/23 * HgbA1c 11/23/22 * HgbA1c 05/31/23 * Microalbumin Level Urine 05/31/23 * CBC w/ Auto Diff 11/23/22 * Comprehensive Metabolic Panel 11/23/22 * Lipid Panel 11/23/22 [facility] Evaluation + Plan note Future Appointments Appointment Date:10/21/2023 03:00:00 PM Scheduled Provider:Inez Henderson MD Location:[facility] Appointment Type:[facility] Follow Up Appointment Date:11/08/2023 01:00:00 PM Scheduled Provider: Location:[facility] Appointment Type:FM Medicare Wellness Subsequent Appointment Date:11/29/2023 10:15:00 AM Scheduled Provider:Demetrius Cooper MD Location:[facility] Appointment Type: Open Diagnostic Tests Pending * Celiac Disease Comprehensive 09/17/23 Future Scheduled Tests Laboratory* U Protein/Creat Ratio 05/31/23 * HgbA1c 11/23/22 * HgbA1c 05/31/23 * Microalbumin Level Urine 05/31/23 * CBC w/ Auto Diff 11/23/22 * Comprehensive Metabolic Panel 11/23/22 * Lipid Panel 11/23/22 [facility] Future Appointments Appointment Date:11/08/2023 01:00:00 PM Scheduled Provider: Location:[facility] Appointment Type: Medicare Wellness Subsequent Appointment Date:11/29/2023 10:15:00 AM Scheduled Provider:Demetrius Cooper MD Location:[facility] Appointment Type: Open Appointment Date:03/23/2024 02:45:00 PM Scheduled Provider:Inez Henderson MD Location:[facility] Appointment Type:[facility] Follow Up Future Scheduled Tests Laboratory* U Protein/Creat Ratio 05/31/23 * HgbA1c 11/23/22 * HgbA1c 05/31/23 * Microalbumin Level Urine 05/31/23 * CBC w/ Auto Diff 11/23/22 * Comprehensive Metabolic Panel 11/23/22 * Lipid Panel 11/23/22 Radiology* MRI Cholangiogram Pancreatography (mrcp) 10/21/23 [facility] Evaluation + Plan note Future Appointments Appointment Date:11/29/2023 10:15:00 AM Scheduled Provider:Demetrius Cooper MD Location:[facility] Appointment Type: Open Appointment Date:03/23/2024 02:45:00 PM Scheduled Provider:Inez Henderson MD Location:[facility] Appointment Type:[facility] Follow Up Appointment Date:11/06/2024 02:30:00 PM Scheduled Provider: Location:[facility] Appointment Type:FM Medicare Wellness Subsequent Future Scheduled Tests Laboratory* U Protein/Creat Ratio 11/24/23 * U Protein/Creat Ratio 05/31/23 * HgbA1c 11/30/23 * HgbA1c 11/23/22 * HgbA1c 05/31/23 * Microalbumin Level Urine 11/24/23 * Microalbumin Level Urine 05/31/23 * CBC w/ Auto Diff 11/23/22 * Comprehensive Metabolic Panel 11/23/22 * Lipid Panel 11/08/23 * Lipid Panel 11/23/22 [facility] Future Appointments Appointment Date:04/17/2024 10:00:00 AM Scheduled Provider:Demetrius Cooper MD Location:[facility] Appointment Type: Open Appointment Date:11/06/2024 02:30:00 PM Scheduled Provider: Location:[facility] Appointment Type:FM Medicare Wellness Subsequent Future Scheduled Tests Laboratory* U Protein/Creat Ratio 11/24/23 * U Protein/Creat Ratio 05/31/23 * HgbA1c 11/30/23 * HgbA1c 05/31/23 * Microalbumin Level Urine 11/24/23 * Microalbumin Level Urine 05/31/23 * Lipid Panel 11/08/23 Radiology* MRI Cholangiogram Pancreatography (mrcp) 03/23/24 [facility] Evaluation + Plan note Future Appointments Appointment Date:11/06/2024 02:30:00 PM Scheduled Provider: Location:[facility] Appointment Type:FM Medicare Wellness Subsequent Appointment Date:11/06/2024 03:30:00 PM Scheduled Provider:Demetrius Cooper MD Location:[facility] Appointment Type: Open Future Scheduled Tests Laboratory* U Protein/Creat Ratio 11/24/23 * U Protein/Creat Ratio 05/31/23 * HgbA1c 11/30/23 * HgbA1c 05/31/23 * Microalbumin Level Urine 11/24/23 * Microalbumin Level Urine 05/31/23 * Lipid Panel 11/08/23 [facility] evaluation + Plan note Future Appointments Appointment Date:11/21/2024 02:30:00 PM Scheduled Provider: Location:[facility] Appointment Type:FM Medicare Wellness Subsequent Appointment Date:11/21/2024 03:20:00 PM Scheduled Provider:Demetrius Cooper MD Location:[facility] Appointment Type: Open Diagnostic Tests Pending * Urine Culture 08/30/24 Future Scheduled Tests Laboratory* U Protein/Creat Ratio 11/24/23 * HgbA1c 11/30/23 * Microalbumin Level Urine 11/24/23 * Lipid Panel 11/08/23 [facility] Evaluation noteNo Assessments Information Available [facility] assessment information available [facility] Work Phone: Evaluation note* Diagnosis 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 [facility] Diagnosis 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 [facility]* Diagnosis Onset Date Resolution Status Viral URI with cough noneactiveImpacted cerumen, bilateralnoneactiveCentral sleep apneaacuteDM (diabetes mellitus)acuteEssential hypertensionacuteObstructive sleep apneaacute [facility] Work Phone: Evaluation note* Diagnosis 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 [facility]* Diagnosis Migraine without aura and without status migrainosus, not intractable (CMS/HCC)- Primary Vertigo Dizziness and giddiness Lumbar radiculopathy Thoracic or lumbosacral neuritis or radiculitis, unspecified Neck pain Cervicalgia Degenerative disc disease, cervical Polyneuropathy Unspecified hereditary and idiopathic peripheral neuropathy documented in this encounter [facility] HealthcareEvaluation note* Diagnosis LAD (lymphadenopathy) of right cervical region- Primary documented in this encounter [facility] HealthcareEvaluation note* Diagnosis 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 [facility]* Diagnosis Oral ulcer- Primary Other and unspecified diseases of the oral soft tissues 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 Work Phone: Evaluation note* Diagnosis Parotid mass- Primary Swelling, mass, or lump in head and neck documented in this encounter [facility] HealthcareEvaluation note* Diagnosis Malignant neoplasm of [...] as uncontrolled documented in this encounter 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 Work Phone: Evaluation note* Diagnosis Enlarged submental lymph node documented in this encounter [facility] Work Phone: Evaluation note* Diagnosis Poor intravenous [...] unspecified type documented in this encounter [facility] Work Phone: Evaluation note* Diagnosis Esophageal dysphagia- [...] oropharynx, unspecified site documented in this encounter [facility] HealthcareEvaluation note* Diagnosis Personal history of malignant neoplasm of head and neck- Primary Personal history of malignant neoplasm of other site G tube feedings (Multi) At risk for malnutrition documented in this encounter [facility] Work Phone: Evaluation note* Diagnosis Esophageal dysphagia- Primary Dysphagia, pharyngoesophageal phase Carcinoma of oropharynx (HCC) Malignant neoplasm of oropharynx, unspecified site documented in this encounter [facility] HealthcareEvaluation note* Diagnosis Esophageal dysphagia- Primary Dysphagia, pharyngoesophageal phase documented in this encounter [facility] HealthcareHistory general Narrative - Reported* Type Description Date Medical History DM (diabetes mellitus) Medical HistoryHTN (hypertension)Medical HistoryHypercholesteremiaMedical HistoryVitamin D deficiency, unspecifiedMedical HistoryCAD (coronary artery disease)Surgical HistoryNeck SurgerySurgical HistorycholecystectomySurgical Historycardiac stentSurgical HistoryprostatectomySurgical Historyhernia Hospitalization Historysee above [employer] Other History general Narrative - Reported* Type Description Date Medical History DM (diabetes mellitus) Medical HistoryHTN (hypertension)Medical HistoryHypercholesteremiaMedical HistoryVitamin D deficiency, unspecifiedMedical HistoryCAD (coronary artery disease)Medical HistoryOSAMedical Historyventricular tachycardiaMedical History diabetic neuropathySurgical HistoryNeck SurgerySurgical Historycholecystectomy Surgical Historycardiac stentSurgical HistoryprostatectomySurgical Historyhernia Hospitalization Historysee above [employer] Other History of Present illness Narrative* Veena [...] this visit: Esophageal dysphagia Carcinoma of oropharynx ([facility]/HCC) Jeremie is doing well, I'll see him PRN documented in this encounterNOWA HealthcareHistory of Present illness Narrative * Veena [...] 2005 ablation OTHER SURGICAL HISTORY 2007 sphincterotomy [place] CHOLECYSTECTOMY 02/2020 Laparoscopic Cholecystectomy - [place] IMPLANT ARTIFICIAL SPHINCTER 2017 PROSTATE 2000 TONSILLECTOMY [...] prior to the visit. [facility] Dis[facility] instructions No data available for this section [facility] Dis[facility] instructionsAmbulatory Orders* Referral to Palliative Medicine Time Frame: 06/14/24, Location: None Selected * RISE Order Location: None Selected [facility] Work Phone: Progress note No data available for this section [facility] Hospital[facility] note Author Talib Faustin [facility] HospitalNote Date/TimeJanuary 2024 11:06am [facility] [place] [address] Cancer Center Note Signed Patient: Jeremie Bennett MR#: [id number] : 1940 Acct:[id number] Age/Sex: 83 / M Type: REG AMB [...] by IHC was equivocal. As per the [facility] tumor board recommendation is either doing [...] is an 83-year-old gentleman who lives in [place] was referred to our medical oncology office from 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 ENT and underwent a biopsy. He [...] positive squamous cell carcinoma. Tumor board at [facility] and the recommended concurrent chemoradiation. Past [...] with concurrent chemoradiation. Since he lives in [place] he was referred by Dr. Mary Ly from ENT at [facility] to our medical oncology and radiation oncology at [facility]. He is referred to medical oncology for [...] PO DAILY aspirin 81 mg PO DAILY lrjsbdt-fkqezmmwlppdq-gveqyczp 250-250-65 mg (Excedrin Migraine) 1 tab PO [...] yellow fever card, magnet, caregiver resource list, [facility] nutrition guide, and cancer rehabilitation pamphlet [...] to have pace maker replaced 07/10/2024 at [facility] Medical History Medical History (Updated [...] signed by Talib Faustin MD> 06/14/24 1106 [facility] Work Phone: Progress note Author Talib Faustin [facility] HospitalNote Date/TimeFebruary 2024 9:20am [facility] [place] [address] Cancer Center Note Signed Patient: Jeremie Bennett MR#: [id number] : 1940 Acct:[id number] Age/Sex: 83 / M Type: REG AMB [...] by IHC was equivocal. As per the [facility] tumor board recommendation is either doing [...] week 1 of cisplatin. Labs at [facility] [place] 07/03/24 revealed hgb 13.3, cr is 1.0. He is having his labs here today.He had his pacemaker placed on 07/10/24 in [place]. PLAN: proceed with week 2 cisplatin tomorrow [...] an 83-year-old gentleman who lives in [facility] was referred to our medical oncology office from 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 ENT and underwent a biopsy. He [...] positive squamous cell carcinoma. Tumor board at [facility] and the recommended concurrent chemoradiation. Past [...] with concurrent chemoradiation. Since he lives in [place] he was referred by Dr. Mary Ly from ENT at [facility] to our medical oncology and radiation oncology at [facility]. He is referred to medical oncology for [...] week 1 of cisplatin. [facility] [facility] [place]24 revealed hgb 13.3, cr is 1.0. He is having his labs here today.He had his pacemaker placed on 07/10/24 in [place]. Rest of 14 point systems were reviewed [...] PO QAM aspirin 81 mg PO DAILY gwwyqur-gonicbtbpdgja-uezimncz 250-250-65 mg (Excedrin Migraine) 1 tab PO [...] concerns voiced at time of intake. [facility] Medical History Medical History (Updated [...] 06/22/24 Dictated By: Talib Faustin MD DD/ Signed By: <Electronically signed by Talib Faustin MD> 07/12/24 0920 [facility] Work Phone: Progress note Author Zeke Brennan [facility] HospitalNote Date/TimeApril 2024 2:14[place] [address] Hospitalist Progress Note Signed Patient: Jeremie Bennett MR#: [id number] : 1940 Acct:[id number] Age/Sex: 83 / M Adm Date: 5 Loc: Room: [address] [place] [address] Type: ADM IN Attending Dr: Zeke Brennan [...] care and confirmed it with the re sident/student/DEVELOPMENT VICE PRESIDENT. This patient presented to the emergency department [...] spray 08/21/24 09:00 08/21/24 09:02 Fluticasone Propionate [place] 120 [place]/16 Gm Bottle INTRANASAL 08/21/25 08:59 2 spray [...] Drops/2.5 Ml Bottle EYE-BOTH 08/21/25 20:59 QPM [facility] Lidocaine/Prilocaine 1 applic 08/20/24 21:59 Lidocaine-Prilocaine [...] signed by DO KASSY Lambert> 08/21/24 1152 [facility] Work Phone: Progress note Author Talib Faustin [facility] HospitalNote Date/TimeJuly 2024 10:26[facility] [place] [address] Cancer Center Note Signed Patient: Jeremie Bennett MR#: [id number] : 1940 Acct:[id number] Age/Sex: 84 / M Type: REG AMB [...] by IHC was equivocal. As per the [facility] tumor board recommendation is either doing [...] week 1 of cisplatin. [place] [facility] [place] revealed hgb 13.3, cr is 1.0. He is having his labs here today.He had his pacemaker placed on 07/10/24 in [place]. 07/20/2024 he came in complaining of increase [...] an 83-year-old gentleman who lives in [facility] was referred to our medical oncology office from 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 ENT and underwent a biopsy. He [...] positive squamous cell carcinoma. Tumor board at [facility] and the recommended concurrent chemoradiation. Past [...] with concurrent chemoradiation. Since he lives in [place] he was referred by Dr. Mary Ly from ENT at [facility] to our medical oncology and radiation oncology at [facility]. He is referred to medical oncology for [...] week 1 of cisplatin. [place] [facility] [place] 07[place]24 revealed hgb 13.3, cr is 1.0. He is having his labs here today.He had his pacemaker placed on 07/10/24 in [place]. 07/20/2024 he came in complaining of increase [...] concerns voiced at time of intake. [facility] Medical History Medical History Squamous [...] (end stage renal disease) Sister Cancer [facility] Problem: Diagnosed with Cancer Lymphoma Social [...] signed by Talib Faustin MD> 11/23/24 1026 [facility] Work Phone: Progress note Author Becky Crouch [facility] HospitalNote Date/TimeAugust 2024 1:25pm [facility] [place] [address] Cancer Center Note Signed Patient: Jeremie Bennett MR#: [id number] : 1940 Acct:[id number] Age/Sex: 84 / M Type: DEP AMB [...] G-tube was placed by surgery here at [facility] and patient is hopeful to have this [...] Allergy (Unknown, Verified 11/23/24 10:00) hives [facility] Medical History Medical History (Updated [...] Mother Heart disease History of stroke [facility] Problem: Diagnosed with Stroke Hypertension Emphysema lung ESRD (end stage renal disease) Sister Cancer [facility] Problem: Diagnosed with Cancer Lymphoma Social [...] <Electronically signed by RAYSHAWN Crouch> 12/26/24 1343 [facility] Work Phone: Rebjju for referral (narrative) Referred by: Flori GARZA, [facility] Reason for referral (narrative)No reason for referral information availableLakehealth Tripoint Medical Center Work Phone: Rekvsl for visit Narrative* Auth/CertSpecialty Diagnoses / ProceduresReferred By ContactReferred To Contact Diagnoses 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 Work Phone: Recqmj for visit Narrative* Imaging (Routine) - AuthorizedSpecialtyDiagnoses / ProceduresReferred By ContactReferred To ContactRadiology Diagnoses Enlarged submental lymph node Procedures US guided biopsy lymph node superficial [place] [address] [place] [address] Phone: tel: fax: Referral IDStatusReasonStart DateExpiration DateVisits RequestedVisits [id number] Perform Procedure [facility] Work Phone: Summary Purpose Family History No [...] RepresentativeExplanationHealthcare Power of Atty 05/11/2024Living Will05/11/2024TypeDate RecordedPatient Bookkeeping Machine Operator ExplanationHealthcare Power of Atty107/12/2023Living Will05/11/2024 Advance Directive Response Recorded Date/ Time Advance Directives Yes July 26, 8:22am Advance Directive Response Recorded Date/ Time Advance Directives Yes July 27 9:02am Advance Directive Response Recorded Date/ Time Advance Directives Yes July 26 025 7:22am Chief Complaint and Reason for Visit Chief [...] Complaint Unknown Chief Complaint Admit Date NEW-Mal Migule base of tongue June 14, 2024 9:25am Mal Miguel base of tongue June 14 9:26am NEW tongue cancer June 14, 2024 1 0:28am Reason for Visit Admit Date Squamous cell carcinoma of oropharynx [facility] 2024 9:25am Tongue cancer June 14, 2024 9 :25am Squamous cell carcinoma of oropharynx [facility] 2024 10:28am Chief Complaint Admit Date NEW-Mal [...] Admit Date Squamous cell carcinoma of oropharynx [facility] 2024 9:25am Tongue cancer June 14, 2024 9 :25am Squamous cell carcinoma of oropharynx [facility] 2024 10:28am Encounter for palliative care June 182024 8:00am Squamous cell carcinoma of oropharynx [facility] 2024 8:00am Chief Complaint Admit Date [...] Admit Date Squamous cell carcinoma of oropharynx [facility] 2024 9:25am Tongue cancer June 14, 2024 9 :25am Squamous cell carcinoma of oropharynx [facility] 2024 10:28am Encounter for palliative care June 182024 8:00am Squamous cell carcinoma of oropharynx [facility] 2024 8:00am Cancer associated pain July 12 7:36am Nausea July 12, 2024 7:36am Squamous cell carcinoma of oropharynx [facility] 2024 7:36am Squamous cell carcinoma of oropharynx [facility] 2024 8:29am Tongue cancer July 12, [...] Admit Date Squamous cell carcinoma of oropharynx [facility] 2024 8:13am Cancer associated pain July 26, 2024 8:22am Nausea July 26, 2024 8:2 2am Squamous cell carcinoma of oropharynx [facility] 2024 8:22am Chief Complaint Admit Date NEW-Mal [...] Admit Date Squamous cell carcinoma of oropharynx [facility] 2024 8:13am Cancer associated pain July 26, 2024 8:22am Nausea July 26, 2024 8:2 2am Squamous cell carcinoma of oropharynx [facility] 2024 8:22am Cancer associated pain August 02, 2024 7:29am Constipation August 02, 2024 7:2 9am Squamous cell carcinoma of oropharynx [facility] 2024 7:29am Thrush, oral August 02, 2024 [...] Admit Date Squamous cell carcinoma of oropharynx [facility] 2024 8:13am Cancer associated pain July 26, 2024 8:22am Nausea July 26, 2024 8:2 2am Squamous cell carcinoma of oropharynx [facility] 2024 8:22am Cancer associated pain August 02, 2024 7:29am Constipation August 02, 2024 7:2 9am Squamous cell carcinoma of oropharynx [facility] 2024 7:29am Thrush, oral August 02, 2024 7:2 9am Cancer associated pain August 09, 2024 7:51am Constipation August 09, 2024 7:5 1am Nausea August 09, 2024 7:5 1am Squamous cell carcinoma of oropharynx [facility] 2024 7:51am Squamous cell carcinoma of oropharynx [facility] 2024 9:23am Chief Complaint Admit Date NEW-Mal [...] Admit Date Squamous cell carcinoma of oropharynx [facility] 2024 8:13am Cancer associated pain July 26, 2024 8:22am Nausea July 26, 2024 8:2 2am Squamous cell carcinoma of oropharynx [facility] 2024 8:22am Cancer associated pain August 02, 2024 7:29am Constipation August 02, 2024 7:2 9am Squamous cell carcinoma of oropharynx [facility] 2024 7:29am Thrush, oral August 02, 2024 7:2 9am Cancer associated pain August 09, 2024 7:51am Constipation August 09, 2024 7:5 1am Nausea August 09, 2024 7:5 1am Squamous cell carcinoma of oropharynx [facility] 2024 7:51am Squamous cell carcinoma of oropharynx [facility] 2024 9:23am Cancer associated pain August 16, 2024 7 :59am Constipation August 16, 2024 7:59 am Nausea August 16, 2024 7:59 am Squamous cell carcinoma of oropharynx [facility] 2024 7:59am Chief Complaint Admit Date NEW-Mal [...] Admit Date Squamous cell carcinoma of oropharynx [facility] 2024 8:13am Cancer associated pain July 26, 2024 8:22am Nausea July 26, 2024 8:2 2am Squamous cell carcinoma of oropharynx [facility] 2024 8:22am Cancer associated pain August 02, 2024 7:29am Constipation August 02, 2024 7:2 9am Squamous cell carcinoma of oropharynx [facility] 2024 7:29am Thrush, oral August 02, 2024 7:2 9am Cancer associated pain August 09, 2024 7:51am Constipation August 09, 2024 7:5 1am Nausea August 09, 2024 7:5 1am Squamous cell carcinoma of oropharynx [facility] 2024 7:51am Squamous cell carcinoma of oropharynx [facility] 2024 9:23am Cancer associated pain August 16, [...] Admit Date Squamous cell carcinoma of oropharynx [facility] 2024 8:13am Cancer associated pain July 26, 2024 8:22am Nausea July 26, 2024 8:2 2am Squamous cell carcinoma of oropharynx [facility] 2024 8:22am Cancer associated pain August 02, 2024 7:29am Constipation August 02, 2024 7:2 9am Squamous cell carcinoma of oropharynx [facility] 2024 7:29am Thrush, oral August 02, 2024 7:2 9am Cancer associated pain August 09, 2024 7:51am Constipation August 09, 2024 7:5 1am Nausea August 09, 2024 7:5 1am Squamous cell carcinoma of oropharynx [facility] 2024 7:51am Squamous cell carcinoma of oropharynx [facility] 2024 9:23am Cancer associated pain August 16, [...] Admit Date Squamous cell carcinoma of oropharynx [facility] 2024 8:13am Cancer associated pain July 26, 2024 8:22am Nausea July 26, 2024 8:2 2am Squamous cell carcinoma of oropharynx [facility] 2024 8:22am Cancer associated pain August 02, 2024 7:29am Constipation August 02, 2024 7:2 9am Squamous cell carcinoma of oropharynx [facility] 2024 7:29am Thrush, oral August 02, 2024 7:2 9am Cancer associated pain August 09, 2024 7:51am Constipation August 09, 2024 7:5 1am Nausea August 09, 2024 7:5 1am Squamous cell carcinoma of oropharynx [facility] 2024 7:51am Squamous cell carcinoma of oropharynx [facility] 2024 9:23am Cancer associated pain August 16, [...] Admit Date Squamous cell carcinoma of oropharynx [facility] 2024 8:13am Cancer associated pain July 26, 2024 8:22am Nausea July 26, 2024 8:2 2am Squamous cell carcinoma of oropharynx [facility] 2024 8:22am Cancer associated pain August 02, 2024 7:29am Constipation August 02, 2024 7:2 9am Squamous cell carcinoma of oropharynx [facility] 2024 7:29am Thrush, oral August 02, 2024 7:2 9am Cancer associated pain August 09, 2024 7:51am Constipation August 09, 2024 7:5 1am Nausea August 09, 2024 7:5 1am Squamous cell carcinoma of oropharynx [facility] 2024 7:51am Squamous cell carcinoma of oropharynx [facility] 2024 9:23am Cancer associated pain August 16, [...] 2024 10:01am Squamous cell carcinoma of oropharynx [facility] 2024 12:32pm Chief Complaint Admit Date Follow Up 3 Months, H+N February 22 9:41am Mal Miguel base of tongue February 22, 2025 9:42am Reason for Visit Admit Date Squamous cell carcinoma of oropharynx [facility] 2024 12:32pm Squamous cell carcinoma of oropharynx [facility] 2024 9:41am Chief Complaint Admit Date Follow Up 3 Months, H+N February 22 9:41am Mal Miguel base of tongue February 23 9:51am REF DR. ARMSTRONG FOR ABNORMAL CT February 1:20pm Chief Complaint Admit Date Follow Up 3 Months, H+N February 22 9:41am Mal Miguel base of tongue February 23 9:51am REF DR. ARMSTRONG FOR ABNORMAL CT February 1:20pm R10.11 R93.5 March 22, 2025 3 :14pm Reason for Visit Admit Date Squamous cell carcinoma of oropharynx [facility] 2024 12:32pm Squamous cell carcinoma of oropharynx [facility] 2024 9:41am Abnormal CT of the abdomen March 08, 2025 1:20pm Right upper quadrant abdominal pain [facility] 2024 1:20pm Assessments No Assessments Information Available Reason for Referral SpecialtyDiagnoses / ProceduresReferred By ContactReferred To Contact Diagnoses Migraine without aura and without status migrainosus, not intractable (CMS/HCC) Missy Westfall PA [address] [place] [address] Referral IDStatusReasonStart DateExpiration DateVisits RequestedVisits [id number] / ProceduresReferred By ContactReferred To ContactMR IMAGING Diagnoses IPMN (intraductal papillary mucinous neoplasm) Procedures MRI 3D POST PROCESSING 3D RENDERING W/INTERP&POSTPROC [place] [address] [facility] [address] [place] [address] Mr Imaging [place] [address] Referral IDStatusReasonVictoria DateExpiration DateVisits RequestedVisits [id number] Request Auto-Generated Referral [id number] / ProceduresReferred By ContactReferred To [facility] IMAGING Diagnoses IPMN (intraductal papillary mucinous neoplasm) Procedures MRI PANC/TRISH WO/W IVCON MRI ABDOMEN W/O & W/[place] [address] [facility] [address] [place] [id number] Mr Imaging [place] [address] Referral IDStatusReasonVictoria DateExpiration DateVisits RequestedVisits [id number] Request Auto-Generated Referral Additional Source Comments (unrecognized [...] section and content) DATE CREATED AUTHOR 02/08/2020 [facility] DATE CREATED AUTHOR AUTHOR'S ORGANIZ ATION 09/30/2022 [facility] DATE CREATED AUTHOR AUTHOR'S ORGANIZ ATION 02/04/2023 [facility] DATE CREATED AUTHOR AUTHOR'S ORGANIZ ATION 04/01/2024 [facility] DATE CREATED AUTHOR AUTHOR'S ORGANIZ ATION 04/19/2024 [facility] DATE CREATED AUTHOR AUTHOR'S ORGANIZ ATION 07/05/2024 [facility] DATE CREATED AUTHOR AUTHOR'S ORGANIZ ATION 07/21/2024 [facility] DATE CREATED AUTHOR AUTHOR'S ORGANIZ ATION 07/22/2024 [facility] DATE CREATED AUTHOR AUTHOR'S ORGANIZ ATION 09/03/2024 [facility] DATE CREATED AUTHOR AUTHOR'S ORGANIZ ATION 10/31/2024 [facility] DATE CREATED AUTHOR AUTHOR'S ORGANIZ ATION 12/01/2024 [facility] DATE CREATED AUTHOR AUTHOR'S ORGANIZ ATION 12/27/2024 [facility] DATE CREATED AUTHOR AUTHOR'S ORGANIZ ATION 01/20/2025 [facility] DATE CREATED AUTHOR AUTHOR'S ORGANIZ ATION 02/17/2025 [facility] DATE CREATED AUTHOR AUTHOR'S ORGANIZ ATION 03/15/2025 [facility] DATE CREATED AUTHOR AUTHOR'S ORGANIZ ATION 03/24/2025 [facility] DATE CREATED AUTHOR AUTHOR'S ORGANIZ ATION 03/30/2025 [facility] REASON FOR VISIT (unrecogniz ed section and content) ReasonCommentsConsultPEHReasonCommentsReceived Outside Medical RecordsReason CommentsBack PainDizzinessNeck PainReasonCommentsParotid massParotid massReason CommentsMRI AppointmentCare Coordinator - OtherReasonCommentsParotid MassFollow up FNA 02/29/24 TBHReasonCommentsRadiology NMReasonCommentsMouth LesionsFollow up PET [facility] 03/27/24ReasonCommentsNew Patient VisitOral cancer. ReasonCommentsNeck MassUltrasound 01/20/24. Lump right side of neck below ear. Onset about 6 wk agoReasonCommentsPost-opHead and neckReasonCommentsConsultPort - Ref Dr LAMAS Tongue cancerHaving pacemaker generator change on 07-10-24 w/ [facility] Patel.SpecialtyDiagnoses / ProceduresReferred By ContactReferred To ContactGeneral Surgery Diagnoses Malignant neoplasm of oropharynx, unspecified (CMS/HCC) Procedures [place] UNLISTED EVALUATION AND MANAGEMENT SERVICE Dennis Gray MD [address] [place] [address] Phone: tel: fax: Stacey Hinojosa, DO [address] [address] Phone: tel: fax: Referral IDStatusReasonStart DateExpiration DateVisits RequestedVisits [id number] urgent need for gastrostomy tmouFxecfnJwinvsnu6sp pow gastrostomy tube placement ReasonCommentsGastrostomy tube removalSpecialtyDiagnoses / ProceduresReferred By ContactReferred To ContactGeneral Surgery Diagnoses Malignant neoplasm of oropharynx, unspecified (HCC) Procedures [place] UNLISTED EVALUATION AND MANAGEMENT SERVICE Gelacio Paredes MD Phone: tel: fax: Veena Adkins, DO [address] [address] Phone: tel: fax: Referral Verónica DateExpiration DateVisits RequestedVisits [id number] of gastrostomy tube Patient Care team informatio n (unrecognized section and content) Team Status: Active Member Role Status Dates Demetrius Cooper MD Primary Care Provider Active Team Status: Inactive Member Role Status Dates Demetrius Cooper MD Primary Care Provider Active Start: June 22, 2024 End: June 22lbert Melo , MDAttending ProviderActiveStart: June 22, 2024 End: June 22, 2024 Team Status: Inactive Member Role Status Dates Demetrius Cooper MD Primary Care Provider Active Start: July 03, 2024 End: July 03lbert Melo , MDAttending ProviderActiveStart: July 03, 2024 End: July 03, 2024 Team Status: Active Member Role Status Dates Demetrius Cooper MD Primary Care Provider Active Start: July 05, 2024 Samantha Harley ProviderActiveStart: July 05, 2024 Dennis Gray MDAttending Provider, Other ProviderActiveStart: July 05, 2024 Team Status: Inactive Member Role Status Dates Demetrius Cooper MD Primary Care Provider Active Start: July 06, 2024 End: July 06, 2024Stefanie Engle ProviderActiveStart: July 06, 2024 End: July 06, 2024 Team Status: Active Member Role Status Dates Demetrius Cooper MD Primary Care Provider Active Start: July 06, 2024 Debora Wild APRNAttenmonica Provider, Other ProviderActiveStart: July 06, 2024 Team Status: Active Member Role Status Dates Demetrius Cooper MD Primary Care Provider Active Start: July 06, 2024 Samantha Harley ProviderActiveStart: July 06, 2024 Dennis Gray MDOther ProviderActiveStart: July 06, 2024 Maribeth Hull , MDAttending ProviderActiveStart: July 06, 2024 Team Status: Active Member Role Status Dates Demetrius Cooper MD Primary Care Provider Active Start: July 10, 2024 Mary Ly , MDReferring ProviderActiveStart: July 10, 2024 Dennis [...] Provider Active Start: July 12, 2024 Kanwal Engletenmonica Provider, Other ProviderActiveStart: July 12, 2024 Team [...] Harleyeferring ProviderActiveStart: July 17, 2024 Dennis Gray MDAttending ProviderActiveStart: July 17, 2024 rick Faustin MDOther ProviderActiveStart: July 17, 2024 Team Status: Inactive Member Role Status Dates Demetrius Cooper MD Primary Care Provider Active Start: July 17, 2024 End: July 17jerome Melo MDAttending ProviderActiveStart: July 17, 2024 End: July 17, 2024 Team Status: Inactive Member Role Status Dates Demetrius Cooper MD Primary Care Provider Active Start: July 19, 2024 End: July 19, 2024Katherine M Junito , APRNAttending ProviderActiveStart: July 19, 2024 End: July 19, 2024 Team Status: Active Member Role Status Dates Demetrius Cooper MD Primary Care Provider Active Start: July 19, 2024 Debora Wild , APRNAttenmonica Provider, Other ProviderActiveStart: July 19, 2024 Team Status: Active Member Role Status Dates Demetrius Cooper MD Primary Care Provider Active Start: July 19, 2024 Mary Ly , MDReferring ProviderActiveStart: July 19, 2024 Dennis Gray , MDActiveStart: July 19, 2024 Chavez Tolliver ProviderActiveStart: July 19, 2024 Soufilashanda Hull , MDAttending ProviderActiveStart: July 19, 2024 Team Status: Inactive Member Role Status Dates Demetrius Cooper MD Primary Care Provider Active Start: July 20, 2024 End: July 20, 2024Mhd Ramin Faustin , MDAttending ProviderActiveStart: July 20, 2024 End: July [...] Start: July 26, 2024 End: July 26, 2024d Yaser Al-Marrawi , MDAttending ProviderActiveStart: July 26, 2024 End: July [...] Active Start: July 31, 2024 Mary Ly , MDReferring ProviderActiveStart: July 31, 2024 Dennis [...] Faustin MDActiveStart: August 02, 2024 Maribeth Hull , [...] Active Start: August 09, 2024 Mary Ly , MDReferring ProviderActiveStart: August 09, 2024 Dennis Gray MDOther ProviderActiveStart: August 09, 2024 Mhrick Faustin , MDActiveStart: August 09, 2024 Soufian Kurtis , MDAttending ProviderActiveStart: August 09, 2024 Team Status: Inactive Member Role Status Dates Demetrius Cooper MD Primary Care Provider Active Start: August 09, 2024 End: August 09, 2024d Ramin Faustin , MDAttending ProviderActiveStart: August 09, 2024 End: August 09, 2024 Team Status: Active Member Role Status Dates Demetrius Cooper MD Primary Care Provider Active Start: August 09, 2024 Debora Wild , APRNAttending Provider, Other ProviderActiveStart: August 09, 2024 Team Status: Active Member Role Status Dates Demetrius Cooper MD Primary Care Provider Active Start: August 14, 2024 HUMBERTO Harleyeferring ProviderActiveStart: August 14, 2024 Dennis Gray , MYAttending ProviderActiveStart: August 14, 2024 Talib Faustin MDOther ProviderActiveStart: August 14, 2024 Team Status: Active Member Role Status Dates Demetrius Cooper MD Primary Care Provider Active Start: August 15, 2024 HUMBERTO Harleyeferring ProviderActiveStart: August 15, 2024 Dennis Gray , MDActiveStart: August 15, 2024 Chavez Tolliver ProviderActiveStart: August 15, 2024 Soufian Kurtis , MDAttending ProviderActiveStart: August 15, 2024 Team Status: Inactive Member Role Status Dates Demetrius Cooper MD Primary Care Provider Active Start: August 16, 2024 End: August 16, 2024Debora Wild , APRNAttenmonica ProviderActiveStart: August 16, 2024 End: August 16, 2024 Team Status: Active Member Role Status Dates Demetrius Cooper MD Primary Care Provider Active Start: August 16, 2024 Debora Wild , APRNAttending Provider, Other ProviderActiveStart: August 16, 2024 Team Status: Active Member Role Status Dates Dennis Gray MD Attending Provider Active Start: August 17, 2024 [facility] Care ProviderActiveStart: August 17, 2024 [...] Zeke Brennan MDOther ProviderActiveStart: August 21, 2024 Luisanaalonzo Johns , MDAttending ProviderActiveStart: August 21, 2024 Team Status: Inactive Member Role Status Dates Demetrius Cooper MD Primary Care Provider Active Start: August 23, 2024 End: August 23, 2024Mhd Yajess Al-Marethan , MDAttending ProviderActiveStart: August 23, 2024 End: August 23, 2024 Team Status: Inactive Member Role Status Dates Demetrius Cooper MD Primary Care Provider Active Start: September 07, 2024 End: September 07, 2024Kanwal [facility] ProviderActive Start: September 07, 2024 End: September 07, 2024 Team Status: Active Member Role Status Dates Demetrius Cooper MD Primary Care Provider Active Start: September 07, 2024 HUMBERTO Harleyeferring ProviderActiveStart: September 07, 2024 Dennis Gray MDActiveStart: September 07, 2024 Mhd Ramin Lamas-Marethan , MDAttending ProviderActiveStart: September 07, 2024 Team Status: Inactive Member Role Status Dates Demetrius Cooper MD Primary Care Provider Active Start: September 11, 2024 End: September 11, 2024Gisele Brunson NPAttending ProviderActiveStart: September 11, 2024 End: September 11, 2024 Team Status: Inactive Member Role Status Dates Demetrius Cooper MD Primary Care Provider Active Start: September 20, 2024 End: September 20Raleigh Milan ProviderActiveStart: September 20, 2024 End: September 20, 2024 Team Status: Active Member Role Status Dates Demetrius Cooper MD Primary Care Provider Active Start: June 20, 2024 HUMBERTO Harleyefgopaling ProviderActiveStart: June 20, 2024 Dennis Gray MDOther ProviderActiveStart: June 20, 2024 Luisana M Johns , MDAttending ProviderActiveStart: June 20, 2024 Team Status: Active Member Role Status Dates Demetrius Cooper MD Primary Care Provider Active Start: August 17, 2024 Mary Ly , MDReferring ProviderActiveStart: August 17, 2024 Dennis Gray , MDAttending ProviderActiveStart: August 17, 2024 Talib Faustin [...] Primary Care Provider Active Alanna Hardy DPM MSAttending ProviderActiveLatonya Morales ProviderActive Team Status: [...] DateEnd Date Anjali Ruby CNP [address] [place] [address] [facility]03/03/23Team MemberRelationshipSpecialtyStart DateEnd Date Anjali Ruby CNP [address] [place] [address] [facility] Lvlejyjn22/18/23 Team Status: Inactive Member Role Status Dates Demetrius Cooper MD Primary Care Provider Active Start: July 27, 2023 End: July 26Stefanie Moore ProviderActiveStart: July 27, 2023 End: July 27, 2023 Team Status: Inactive Member Role Status Dates Demetrius Cooper MD Primary Care Provider Active Start: September 02, 2023 End: September 01shad Brunson NPAttending ProviderActiveStart: September 02, 2023 End: September 02, 2023Team MemberRelationshipSpecialtyStart DateEnd Date Anjali Ruby C[place] [address] [facility]erring[facility]03/03/23Team MemberRelationshipSpecialtyStart DateEnd Date Demetrius Cooper MD [address] [place] [address] PCP - [facility] Medicine01/26/24 Clarissa Corado MD [address] [place] [address] Referring PhysicianNeurology08/03/23Team MemberRelationshipSpecialtyStart DateEnd Date Demetrius Cooper MD [address] [place] [address] [facility]01/26/24 Clarissa Corado MD [address] [place] [address] Referring PhysicianNeurology08/03/23Team MemberRelationshipSpecialtyStart DateEnd Date Demetrius Cooper MD [address] [place] [address] [facility]01/26/24 Clairssa Corado MD [address] [place] [address] Referring PhysicianNeurology08/03/23Team MemberRelationshipSpecialtyStart DateEnd Date Anjali Ruby [facility] [address] [place] [address] ReferringFamily Vpxdsnmx42/18/23 Team Status: Inactive Member Role Status Dates Demetrius Cooper MD Primary Care Provider Active Start: February 29, 2024 End: February 29, 2024Hisara Ham Jr [facility]ttending ProviderActiveStart: February 29, 2024 End: February 29, 2024Team MemberRelationshipSpecialtyStart DateEnd Date Demetrius Cooper MD [address] [place] [address] PCP - [facility] Medicine01/26/24 Clarissa Corado MD [address] [place] [address] Referring PhysicianNeurology08/03/23Team MemberRelationshipSpecialtyStart DateEnd Date Demetrius Cooper MD [address] [place] [address] PCP - [facility] Medicine01/26/24 Clarissa Corado MD [address] [place] [address] Referring PhysicianNeurology08/03/23Team MemberRelationshipSpecialtyStart DateEnd Date Demetrius Cooper MD [address] [place] [address] PCP - GeneralFamily Medicine01/26/24 Clarissa Corado MD [address] [place] [address] Referring PhysicianNeurology08/03/23Team MemberRelationshipSpecialtyStart DateEnd Date Demetrius Cooper MD [address] [place] [address] PCP - GeneralFamily Oiblcbzl89/11/24 Anjali Ruby [facility] [address] [place] [address] ReferringFamily Igaqjugs55/18/23 Luc Ham MD [address] [place] [address] [place] [id number] Ent - Yltbhmwlaxmlge60/25/24Team MemberRelationshipSpecialtyStart DateEnd Date Demetrius Cooper MD [address] [place] [address] PCP - GeneralFamily Medicine01/26/24 Clarissa Corado MD [address] [place] [id number] Referring PhysicianNeurology08/03/23Team MemberRelationshipSpecialtyStart DateEnd Date Demetrius Cooper MD [address] [facility] [place] [address] PCP - GeneralFamily Wgbicxac14/26/24Team MemberRelationshipSpecialtyStart Date End Date Demetrius Cooper MD [address] [facility] [place] [address] PCP - [facility]04/11/24Team MemberRelationshipSpecialtyStart [place] [address] [place] [address] [place] [address] PCP - [facility]04/11/24Team MemberRelationshipSpecialtyStart Date End Date Demetrius Cooper MD [address] [facility] [place] [address] PCP - [facility]04/11/24 Team Status: Inactive Member Role Status Dates Demetrius Cooper MD Primary Care Provider Active Start: June 14, 2024 End: June 14, 2024Saúl Garcia ProviderActiveStart: June 14, 2024 End: June 14, 2024Luisito Harleyerring ProviderActiveStart: June 14, 2024 End: June 14, 2024 Team Status: Active Member Role Status Dates Demetrius Cooper MD Primary Care Provider Active Start: June 14, 2024 Mhrick Faustin MDAttending ProviderActiveStart: June 14, 2024 HUMBERTO Harleyeferring ProviderActiveStart: June 14, 2024 Team Status: Inactive Member Role Status Dates Demetrius Cooper MD Primary Care Provider Active Start: June 14, 2024 End: June 14, 2024Dennis Gray MDAttending ProviderActiveStart: June 14, 2024 End: June 14, 2024Hue Harleying ProviderActiveStart: June 14, 2024 End: June 14, 2024Team MemberRelationshipSpecialtyStart DateEnd Date Demetrius Cooper MD [address] [place] [address] [facility]01/26/24 Clarissa Corado MD [address] [place] [address] Referring PhysicianNeurolog08/03/23 Team Status: Active Member Role Status Dates Demetrius Cooper MD Primary Care Provider Active Start: June 20, 2024 Samantha Harley ProviderActiveStart: June 20, 2024 Glynn Medinaending ProviderActiveStart: June 20, 2024 Team MemberRelationshipSpecialtyStart DateEnd Date Demetrius Cooper MD [address] [place] [address] [facility]01/26/24 Clarissa Corado MD [address] [place] [address] Referring [facility]icianBay[facility] [place]08/03/23 Team Status: Active Member Role Status Dates Demetrius Cooper MD Primary Care Provider Active Start: July 06, 2024 Samantha Harley ProviderActiveStart: July 06, 2024 Dennis Gray MDAttsara Provider, Other ProviderActiveStart: July 06, 2024 Team Status: Active Member Role Status Dates Demetrius Cooper MD Primary Care Provider Active Start: July 12, 2024 Stefanie Engle ProviderActiveStart: July 12, 2024 Team Status: Active Member Role Status Dates Demetrius Cooper MD Primary Care Provider Active Start: July 12, 2024 Luisito Harleyerring ProviderActiveStart: July 12, 2024 Dennis Gray MDAttending ProviderActiveStart: July 12, 2024 Mhd Ramin Lamas-Delvin , MDActiveStart: July 12, 2024 Team Status: Active Member Role Status Dates Demetrius Cooper MD Primary Care Provider Active Start: July 13, 2024 Mary Ly , MDReferring ProviderActiveStart: July 13, 2024 Dennis Gray , MDAttending ProviderActiveStart: July 13, 2024 Talib Faustin MDOther ProviderActiveStart: July 13, 2024 Team Status: Active Member Role Status Dates Demetrius Cooper MD Primary Care Provider Active Start: July 17, 2024 Mary Ly , MDReferring ProviderActiveStart: July 17, 2024 Dennis Gray , MDActiveStart: July 17, 2024 Mhrick Faustin , MDAttending ProviderActiveStart: July 17, 2024 [...] Active Start: July 20, [address] [facility] Care ProviderActiveStart: July 20, 2024 Team Status: Active Member Role Status Dates Demetrius Cooper MD Primary Care Provider Active Start: July 26, 2024 HUMBERTO Harleyeferring ProviderActiveStart: July 26, 2024 Dennis Gray , MDActiveStart: July 26, 2024 Talib Faustin , MDAttending ProviderActiveStart: July 26, 2024 Team Status: Active Member Role Status Dates Demetrius Cooper MD Primary Care Provider Active Start: July 27, 2024 HUMBERTO Harleyeferring ProviderActiveStart: July 27, 2024 Dennis Gray , MDActiveStart: July 27, 2024 Talib Faustin MDOther ProviderActiveStart: July 27, 2024 Luisana Johns , MDAttending ProviderActiveStart: July 27, 2024 Team Status: Active Member Role Status Dates Dennis Gray MD Attending Provider Active Start: July 27, 2024 IRWIN Fernandesrimary Care ProviderActiveStart: July 27, 2024 Team Status: Active Member Role Status Dates Demetrius Cooper MD Primary Care Provider Active Start: July 24, 2024 Mary Ly MDReferring ProviderActiveStart: July 24, 2024 Dennis Gray [...] 2024 HUMBERTO Harleyeferring ProviderActiveStart: August 16, 2024 Norleena R Isaac , MDAttending ProviderActiveStart: August 16, 2024 Mhd Yaser Al-Marrawi , MDActiveStart: August 16, 2024 Team Status: Active Member Role Status Dates Demetrius Cooper MD Primary Care Provider Active Start: August 18, 2024 Mary Ly , HUMBERTOefindiana ProviderActiveStart: August 18, 2024 Dennis Gray , MDActiveStart: August 18, 2024 Mhd Yajess Al-Marethan , MDAttending ProviderActiveStart: August 18, 2024 Team Status: Active Member Role Status Dates Demetrius Cooper MD Primary Care Provider Active Start: August 20, 2024 Maye Chavez ProviderActiveStart: August 20, 2024 Iris Thompson Provider, Attending ProviderActiveStart: August 20, 2024 Team MemberRelationshipSpecialtyStart DateEnd Date Demetrius Cooper MD [address] [facility] [place] [address] PCP - GeneralFamily Rpeaixjj58/26/24Team MemberRelationshipSpecialtyStart Date End Date Demetrius Cooper MD [address] [place] [address] PCP - GeneralFamily Medicine01/26/24 Clarissa Corado MD Referring PhysicianNeurology08/03/23Team MemberRelationshipSpecialtyStart DateEnd Date Demetrius Cooper MD [address] [place] [address] PCP - GeneralFamily Medicine01/26/24 Clarissa Corado MD Referring PhysicianNeurology08/03/23 Team Status: Active Member Role Status Dates Demetrius Cooper MD Primary Care Provider Active Start: September 25, 2024 HUMBERTO Harleyeferring ProviderActiveStart: September 25, 2024 Dennis Gray , MDActiveStart: September 25, 2024 rick Faustin MDAttsara ProviderActiveStart: September 25, 2024 Team Status: Inactive Member Role Status Dates Demetrius Cooper MD Primary Care Provider Active Start: September 26, 2024 End: September 26, 2024Stefanie Engle ProviderActiveStart: September 26, 2024 End: September 26, 2024Team MemberRelationshipSpecialtyStart DateEnd Date Demetrius Cooper MD [address] [place] [address] PCP - Generalmily Medicine01/26/24 Clarissa Corado MD Referring PhysicianNeurology08/03/23Team MemberRelationshipSpecialtyStart DateEnd Date Demetrius Cooper MD [address] [place] [address] PCP - Generalmily Medicine01/26/24 Clarissa Corado MD Referring PhysicianNeurology08/03/23Team MemberRelationshipSpecialtyStart DateEnd Date Demetrius Cooper MD [address] [place] [address] PCP - GeneralFamily Medicine01/26/24 Clarissa Corado MD [...] 23, 2024 End: November 23, 2024Mhd Yaser Jared-Delvin , MDAttending ProviderActiveStart: November 23, 2024 End: November 23, 2024 Team Status: Active Member Role Status Dates Demetrius Cooper MD Primary Care Provider Active Start: November 23, 2024 Mary Ly , MDReferring ProviderActiveStart: November 23, 2024 Mhd Yaser Al-Marrarhonda , MDAttending ProviderActiveStart: November 23, 2024 Team [...] MemberRelationshipSpecialtyStart DateEnd Date Demetrius Cooper MD [address] [facility] [place] [address] [facility] Pgvyifrc43/26/24 Team Status: Active Member Role Status Tati Cooper MD Primary Care Provider Active Start: November 23, 2024 Stefanie Engle ProviderActiveStart: November 23, 2024 Vitor Engle ProviderActiveStart: November 23, 2024 Team Status: Inactive Member Role Status Tati Cooper MD Primary Care Provider Active Start: December 26, 2024 End: December 26, 2024Stefanie Garnica ProviderActive Start: December 26, 2024 End: December 26, 2024 Team Status: Active Member Role Status Tati Cooper MD Primary Care Provider Active Start: December 26, 2024 Samantha Harley ProviderActiveStart: December 26, 2024 Saúl Garcia ProviderActiveStart: December 26, 2024 Team MemberRelationshipSpecialtyStart DateEnd Date Demetrius Cooper MD [address] [place] [address] PCP - [facility] Medicine01/26/24 Clarissa Corado MD Referring PhysicianNeurology08/03/23Team MemberRelationshipSpecialtyStart DateEnd Date Demetrius Cooper MD [address] [place] [address] PCP - [facility] Medicine01/26/24 Clarissa Corado MD Referring PhysicianNeurology08/03/23 [...] Samantha Harley ProviderActiveStart: February 22, 2025 Saúl Garcia ProviderActiveStart: February 22, 2025 Team Status: Active [...] February 22, 2025 End: February 22, 2025Afshanshi Crouch Stefanie ProviderActive Start: February 22, 2025 End: February 22, 2025 Team Status: Active Member Role/Relationship Status Dates Demetrius Cooper MD Primary Care Provider Active Start: February 23, 2025 HUMBERTO Harleyeferrbianca ProviderActiveStart: February 23, 2025 Mhrick Faustin , MYAttending ProviderActiveStart: February 23, 2025 Team Status: Inactive Member Role/Relationship Status Dates Demetrius Cooper MD Primary Care Provider Active Start: March 08, 2025 End: March 08helio Russell MDAttending ProviderActiveStart: March 08, 2025 End: March 08, 2025Team MemberRelationshipSpecialtyStart DateEnd Date Demetrius Cooper MD PCP - GeneralFamily Medicine01/26/24 Clarissa Corado MD Referring PhysicianNeurology08/03/23 Team Status: Active Member Role/Relationship Status Dates Owen Armstrong MD Primary Care Provider Active Team Status: Inactive Member Role/Relationship Status Dates Chang Russell MD Attending Provider Active S tart: March 22, 2025 End: March 22, 2025Rod Canela Care ProviderActiveStart: March 22, 2025 End: March 22, 2025 Goals (unrecognized section and content) Goals may be documented in a n alternate section Source Comments (unrecognize d section and content) In the event this informatio n is protected by the Federal Confidentiality of Alcohol and Drug Abuse Patient Records regulations: The Federal rules restrict any use of the information to criminally investigate or prosecute any alcohol or drug abuse patient.[facility] CenterIn the event this information is protected by the Federal Confidentiality of Alcohol and Drug Abuse Patient Records regulations: The Federal rules restrict any use of the information to criminally investigate or prosecute any alcohol or drug abuse patient.[facility] CenterIn the event this information is protected by the Federal Confidentiality of Alcohol and Drug Abuse Patient Records regulations: The Federal rules restrict any use of the information to criminally investigate or prosecute any alcohol or drug abuse patient.[facility] CenterIn the event this information is protected by the Federal Confidentiality of Alcohol and Drug Abuse Patient Records regulations: The Federal rules restrict any use of the information to criminally investigate or prosecute any alcohol or drug abuse patient.[facility] CenterIn the event this information is protected by the Federal Confidentiality of Alcohol and Drug Abuse Patient Records regulations: The Federal rules restrict any use of the information to criminally investigate or prosecute any alcohol or drug abuse patient.[facility] PRN Active and Recently Administ ered Medications (unrecognized section and content) Medication Order05/09/20230518// oxymetazoline (Afrin) 0.05 % nasal spray (CANCELED) As needed, Starting on Shira 05/11/24 at 0750, Intraprocedure * 0750 (Given - Provider: Mary Ly MD) sodium chloride 0.9 % irrigation solution (CANCELED) As needed, Starting on Shira 05/11/24 at 0750, Intraprocedure * 0750 (Given - Provider: Mary Ly MD) sterile water irrigation solution (CANCELED) As needed, Starting on Shira 05/11/24 at 0750, Intraprocedure * 0750 (Given - Provider: Mary Ly MD - Comment: FOR SCOPE) [...] BE BASED ON THE PRIMARY CLINICAL RECORDS. [employer] [facility]. provides no warranty or guarantee of the accuracy or completeness of information in this document.
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
--- OUTSIDE RECORDS SUMMARY | 2025-04-16 07:42 | XMS_ITS | Clinical Summary ---
Author Organization [facility] Address [address] [place] [id number] Care Team Providers Care Manager Hematology Name Role Phone Anjali Ruby CNP Unavailable [phone] Consuelo Mcghee MD Unavailable Demetrius Mirza MD Primary Care Provider [phone] Allergies Active AllergyReactionsCriticalityNoted DateCommentsAdhesive Tape-SiliconesRash 01/19/2019NiacinItching,Gyhmqmb3701/19/2019 Medications MedicationSigDispense QuantityRefillsLast FilledStart DateEnd DateStatus isosorbide mononitrate ER (IMDUR) 30 mg 24 hr tablet Take 30 mg by mouth.08/31/2022ctive clopidogrel (PLAVIX) 75 mg tablet 02/27/2023ctive furosemide (LASIX) 20 mg tablet Take 20 mg by mouth.04/24/2020Active fluticasone (FLONASE) 50 mcg/actuation nasal spray 1 [place].08/24/2022ctive omeprazole (PRILOSEC) 40 mg capsule Take 40 [...] RecordedNational Score (1-100), lower number is lower jlch895004/01/2023State Score (1-10), lower number is lower umyx86506/01/2022ata from: https://www.neighborhoodatlas.medicine.[facility].edu/. Last address used for [address]/01/2023Sex and Gender InformationValueDate RecordedSex Assigned at BirthNot on fileLegal ZsaHjfy07/18/2023 7:42 AM EDTGender Identity Not on fileSexual OrientationNot on file Last Filed Vital Signs Vital SignReadingTime TakenCommentsBlood Fihhydzx955/6611/ 1:15 PM EST Auovu023504/01/2023 1:15 PM IIEVckwatwqbce40.2 ??C (97.1 ??F)04/01/2023 1:15 PM ESTRespiratory Rate--Oxygen Ngfouwzhlz00%04/01/2023 1:15 PM ESTInhaled Oxygen Concentration--Klhmcz59.8 kg (167 lb)04/01/2023 1:15 PM ESTHeight--Body Mass Index-- Plan of Treatment Health MaintenanceDue DateLast DoneCommentsAnxiety Yohisodza81/15/1958Depression Alodtyard78/15/1958DTaP,Tdap,Td Vaccine (1 - Tdap)10/29/1958Diabetes Screening 10/29/1984RSV Vaccine (1 - 1-dose 75+ series)10/29/2014dvance Directive Igoxukzdqe33/01/2025Medicare Advantage Annual Wellness Visit05/17/2024ovid-19 Vaccine (2024- season), 11/25/2021, 03/06/2021, Additional history existsInfluenza Vaccine (#1)5106/12/2022, 02/18/2021, 02/14/2020, Additional history existsPneumococcal Vaccine: 50+Completed 11/22/2023, 01/30/2014Shingrix NnjnxzuIcnkpgxnj36/25/2024, 11/22/2023 Insurance Care Teams Team MemberRelationshipSpecialtyStart DateEnd Date Demetrius Mirza MD [address] [place] [address] PCP - GeneralFamily Zdulicrq97/11/24 Anjali Ruby, [employer] [address] [place] [address] ReferringFamily Rcnxfhvy63/18/23 Consuelo Mcghee MD [address] [id number] Ent - Qtdlodjtzdbrbw73/25/24
[2025-04-16] MEDS: DIAZEPAM 5 MG TABLET 10 MG PO (08:52)
[2025-04-16 08:57] VITALS: BP 145/84; PULSE 82; TEMP 36.3; O2SAT 96
[2025-04-16 09:29] VITALS: BP 106/61; PULSE 81; O2SAT 96
[2025-04-16 09:31] VITALS: BP 115/63; PULSE 83; O2SAT 96
[2025-04-16] MEDS: LIDOCAINE HCL 2% 400 MG/20 ML MDV 14 ML INJ (09:35)
[2025-04-16] MEDS: BUPIVACAINE HCL 0.25% PF 25 MG/10 ML VIAL 4 ML INJ (09:43)
[2025-04-16] MEDS: METHYLPREDNISOLONE ACETATE 40 MG/ML VIAL 80 MG INJ (09:43)
--- NOTE | 2025-04-16 09:50 | P.ON_ITS ---
Date of procedure: 04/16/25 Pre-op diagnosis: Pain due to lumbar spondylosis without myelopathy Post-op diagnosis: same as pre-op Procedure: Procedure: Bilateral L2-3, L4-5 radiofrequency ablation Medications: Bupivacaine 0.25% 4cc, depomedrol 80mg, lidocaine 2% 6cc The patient was seen and examined in the preoperative holding area.? The site was marked.? Written informed consent was obtained and placed on the chart.? The patient was brought to the medical procedure unit and placed in the prone position.? A timeout was completed verifying correct patient, procedure, positioning, and special requirements.? The skin overlying the target points, the designated medial branch, were prepped and draped in the usual sterile fashion.? The target point was achieved with a 20-gauge 15 cm with a 10 mm curved active tip radiofrequency cannula under direct fluoroscopic visualizatio n.? The needle was inserted at level L2 on the right side. Needle tip position was confirmed with lateral fluoroscopic position.? Motor stimulation was carried out at 2 Hz up to 5 volts with the absence of extremity activity.? This was repeated at level L3, 4, 5 on right side.?? Sensory stimulation was carried out.? Concordant pain was realized at the above- mentioned sites.? Then radiofrequency lesioning was carried out times 90 seconds at 80 degrees times 2 lesions at each level.? The radiofrequency probe was removed prior to cannula removal.? The above-mentioned injectate was placed in 1 mL increments.? The needle was removed. The same procedure, with the same steps, was then completed on the left side at the same levels. Insertion sites were covered.? The patient was taken to the postoperative recovery area and monitored for an appropriate length of time before being found suitable for discharge in the company of a responsible adult. Anesthesia: Local Surgeon: Surjit Meléndez Pathology: none sent Condition: stable Disposition: no change
--- NOTE | 2025-04-16 10:18 | PC.NURSE ---
Pts pacemaker was interrogated and report sent to [employer]. Rep called and notified that there were no findings on interrogation. Report will be faxed and attached to medical record.
== END 2025-04-16 10:18 | disposition home or self-care (01) ==
PROVIDERS: PCP Family Medicine; Visit Provider Anesthesiology
DX: M47.816 Spondylosis without myelopathy or radiculopathy, lumbar region (principal); M54.50 Low back pain, unspecified; G89.29 Other chronic pain; E11.8 Type 2 diabetes mellitus with unspecified complications; Z79.84 Long term (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 of oral hypoglycemic drugs
CPT/HCPCS: 36415; 64635; 64636; 82948; J0665; J1010

== ENCOUNTER 2025-04-20 08:06 | Outpatient (RCR) | payer MEDICARE, SELFPAY ==
[2025-04-20 09:10] VITALS: BP 104/64; PULSE 60; TEMP 36.4; O2SAT 96
[2025-04-20] MEDS: ACETAMINOPHEN 325 MG TABLET 650 MG PO (09:15)
[2025-04-20] MEDS: 0.9 % SODIUM CHLORIDE 250 ML 10 ML IV (09:30)
[2025-04-20] MEDS: DIPHENHYDRAMINE HCL 25 MG CAPSULE PO (09:32)
[2025-04-20] MEDS: IRON DEXTRAN COMPLEX 100 MG/2 ML VIAL 25 MG IV (09:34)
[2025-04-20] MEDS: IRON DEXTRAN COMPLEX 975 MG in 0.9 % SODIUM CHLORIDE 250 ML 269.5 MG IV (10:26)
[2025-04-20 10:46] VITALS: BP 120/64; PULSE 58; TEMP 36.2; O2SAT 92
--- NOTE | 2025-04-20 11:12 | PC.NURSE ---
up to bathroom, tolerating infusion without s/s of rxn.
[2025-04-20] MEDS: HEPARIN SODIUM (PORCINE) PF LOCK FLUSH 500 UNIT/5 ML SYRINGE IV (11:33)
== END 2025-05-16 23:59 | disposition home or self-care (01) ==
LOC: INF 08:06
PROVIDERS: PCP Family Medicine; Visit Provider Family Medicine
DX: D64.9 Anemia, unspecified (principal)
CPT/HCPCS: 96365; 96376; J1642; J1750

== ENCOUNTER 2025-05-03 13:14 | Outpatient (OUT) | payer MEDICARE, SELFPAY ==
--- OUTSIDE RECORDS SUMMARY | 2024-01-31 08:00 | XMS_ITS ---
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 Name Role Phone YahirHaris Primary Care Provider Susana Momin [phone] REASON FOR VISIT Nail Care 1 year diabetic foot assessment Encounters Encounter Location Date Provider Diagnosis [facility] (PODIATRY) [address] [place] [address] [place] [address] 01/31/2024 Susana Momin Plan Of Treatment Next Appt Details Provider Name:Haris Adrian Sinclair, 09:45:00 AM, [address] [facility] [place], [address], Progress Notes * Jair GROSSDOB:1940 (84 yo M)Acc No.[id number]:01/31/2024 UNLOCKED PROGRESS NOTE Follow Up Patient: Cuate MELISSAJair :?NILAY Banegas-CDOB:1940???Age:83 Y ???Sex:MaleDate:4Phone:[phone]:[address] [place] [address]Pcp:Haris Adrian Treadwell In:12:43 PM ESTCheck Out:01:06 PM EST Subjective: * Chief Complaints: * 1 . Nail Care 1 year diabetic foot assessment. * Medical History: Objective: * Vitals: Assessment: Plan: * Treatment: * * Electronic signature of Susana Momin PA-C on 05/03/2025 at 01:17 PM ESTSign off status: PendingVisit Status:?CANC (Cancelled) * Provider: Rachel Momin PA-C Date: 0 01/31/2024 Generated for Printing/Faxing/eTransmitting on:?05/03/2025 01:17 PM EST
--- OUTSIDE RECORDS SUMMARY | 2024-07-31 08:00 | XMS_ITS ---
Author Organization [facility] in [place] Address [address] [place] [address] Care Team Providers Care Business Intelligence Administrator Name Role Phone Haris Sinclair Primary Care Provider [phone] Susana Momin [phone] REASON FOR VISIT nail care Encounters Encounter Location Date Provider Diagnosis [facility] (PODIATRY) [address] [place] [address] [place] [address] 07/31/2024 Susana Momin Plan Of Treatment Next Appt Details Provider Name:Haris Sinclair, 09:45:00 AM, [address] [facility] [place] [place], [address], Progress Notes * Jair GROSSDOB:1940 (84 yo M)Acc No.[id number]:07/31/2024 UNLOCKED PROGRESS NOTE Nurse Visit Patient: Jair HESS :?JODI BanegasCDOB:1940???Age:83 Y ???Sex:MaleDate:07/31/2024Phone:[phone]:[address] [place] [address] [place], [place]-[id number]:Haris Adrian Sinclair Subjective: * Chief Complaints: * 1 . Nail care. * Medical History: Objective: * Vitals: Assessment: Plan: * Treatment: * * Electronic signature of Susana Momin PA-C on 05/03/2025 at 01:17 PM ESTSign off status: PendingVisit Status:?CANC (Cancelled) * Provider: Rachel Momin PA-C Date: 0 07/31/2024 Generated for Printing/Faxing/eTransmitting on:?05/03/2025 01:17 PM EST
--- OUTSIDE RECORDS SUMMARY | 2025-05-01 05:30 | XMS_ITS ---
Author Organization [facility] in [place] Address [address] [place] [address] Care Team Providers Care Courtesy Clerk Name Role Phone Haris Sinclair Primary Care Provider Allergies Allergen (clinical drug ingredient) Drug/Non Drug Allergy documented on EMR Reaction Allergy Type Onset Date Status NiaspanUnknownDrug AllergyActiveAdhesiveUnknownAllergyActive REASON FOR VISIT 3mon Medications Medication SIG (Take, Route, Frequency, Duration) Notes Start Date End Date Status Zonisamide 50 MG 1 capsule Orally twice a day 5ActiveTylenol PM Extra Strength 500-25 MG1 tablet at bedtime as needed Orally Once a day; Duration: 30 day(s)ActiveTest Strips -use 1 strip dx: E11.9 once daily; Duration: 5ActivePlavix 75 MG1 tablet Orally Once a day; Duration: 30 day(s)ActiveSotalol HCl 80 MG0.5 tablet Orally every 12 hrs; Duration: 30 daysActiveMultivitamin Adult -1 tablet Orally Once a day; Duration: 30 day(s)ActivemetFORMIN HCl ER 500 MG1 tablet Orally Once a day; Duration: 30 daysActiveLoperamide HCl 2 MG1 capsule as needed Orally Four times a dayActive Latanoprost 0.005 %1 drop into affected eye in the evening Ophthalmic Once a day ActiveOmeprazole 40 MG1 capsule 30 minutes before morning meal Orally Once a day; Duration: 30 day(s)ActiveIsosorbide Mononitrate ER 30 MG1 tablet in the morning Orally Once a day; Duration: 30 day(s)ActiveIrbesartan 300 MG1 tablet Orally Once a day; Duration: 30 day(s)ActiveGlucose Test Strips test blood sugar once daily DX E11.9; Duration: 90 days contour plus blue 5ActiveGlucose Meter test blood sugar daily DX E11.9; Duration: 365 days contour plus blue meter 5ActiveGlucose Lancets check blood sugar daily DX E11.9; Duration: 90 days contour plus blue 5ActiveDorzolamide HCl 2 %1 drop into affected eye Ophthalmic Three times a dayActiveCrestor 10 MG1 tablet Orally Once a day; Duration: 30 day(s) WhoefePuzqmkfehm-NJIN-Oxoqwlak 50-325-40 MG1 capsule as needed Orally every 4 hrsActiveFurosemide 20 MG1 tablet Orally Once a day; Duration: 30 day(s)Active Fluticasone Propionate 50 MCG/ACT1 spray in each nostril Nasally Once a day; Duration: 30 day(s)ActiveamLODIPine Besylate 5 MG1 tablet Orally Once a day; Duration: 30 day(s)ActiveAlbuterol Sulfate (2.5 MG/3ML) 0.083%3 mL Inhalation every 6 hrs-PRN5ActiveAspirin 81 MG1 tablet Orally Once a day; Duration: 30 day(s)Active Social History Tobacco Use: Social History Observation Description Date Details (start date - stop date) Former Smoker NA - NA Tobacco Use/Smoking Question Answer Notes Patient is a former smoker How long has it been since you last smoked?> 10 yearsSection Notes: Quit 35 years ago Vital Signs Weight 153.0 lbs 05/01/2025 Height 66 in 05/01/2025 Blood pressure systolic 118 mm Hg 05/01/20 25 Blood pressure diastolic 78 mm Hg 025 BMI 24.69 kg/m2 05/01/2025 Encounters Encounter Location Date Provider Diagnosis [facility] [address] [place] [address] 05/01/2025 Haris Sinclair Controlled type 2 diabetes mellitus with diabetic polyneuropathy, without long-term current use of insulin E11.42 ; Essential (primary) hypertension I10 ; 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 I25.10 ; Personal history of malignant neoplasm of prostate Z85.46 and Venous insufficiency (chronic) (peripheral) I87.2 Assessments Encounter Date Diagnosis (ICD Code) Assessment Notes Treatment Notes Treatment Clinical Notes Section Notes 05/01/2025 Controlled type 2 di abetes mellitus with diabetic polyneuropathy, without long-term current use of insulin (ICD-10 - E11.42) Doing GREat05/01/2025Essential (primary) hypertension (ICD-10 - I10)Stabel with meds107/02/2024AD in lummi artery (ICD-10 - I25.10)no chest pain05/01/2025 Personal history of malignant neoplasm of prostate (ICD-10 - Z85.46)had radiont - lennox ukknoa9605/01/2025Venous insufficiency (chronic) (peripheral) (ICD-10 - I87.2)comporession hose /16/2025OtherContinue taking medications as prescribed and monitor BP at home regularly. 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 Next Appt Details Provider Name:Haris Sinclair, 09:45:00 AM, [address] [place], [address], Progress Notes * Jair GROSSDOB:1940 (84 yo M)Acc No.[id number]:05/01/2025 Progress Note Patient: Jair HESS :?Owen Yolanda Sinclair ([facility]), MDDOB:1940???Age: 84 Y???Sex:MaleDate:05/01/2025Phone:[phone]:[address] [place] [id number] In:10:02 AM ESTCheck Out:10:43 AM EST Subjective: * Chief Complaints: * 3 mon * HPI: ???Hypertension:?The patient complains of?high blood pressure.?The symptoms have been present for?1-2 days.?The symptoms are?moderate.?Symptomatic treatment has included?home blood pressure monitoring.?Associated symptoms include?none.? DM [address] HTN - stable with meds CAD - stabel no chest pain hypercholesterolemi - revewiewed? labs. * ROS: ???General/Constitutional:?Lightheadedness?denies.?Fatigue or Weakness?denies.?Cardiovascular:?Chest pain at rest?denies.?Chest pain with exertion denies.?Irregular heartbeat?denies.?Respiratory:?Shortness of breath?denies.?Shortness of breath at res t?denies.?Wheezing?denies.?Neurologic:?Dizziness?denies.?Fainting?denies.?Headache denies.? * Active Problem List H61.21 Impacted cerumen, ri ght ear Modified On:07/13/2022 Status:dmpmfnxofF49.3Overweight Modified On:07/13/2022 Status:odwejkoveK76.71Peroneal tendinitis, right leg Modified On:07/13/2022 Status:mwivwvxdkX13.671Pain in right foot Modified On:07/13/2022 Status:durpmhwuyZ72.212ALaceration without foreign body of right middle finger without damage to nail, initial encounter Modified On:07/13/2022 Status:lhobirvuyO33.421SSprain of deltoid ligament of right ankle, sequela Modified On:07/13/2022 Status:srtmldfauG04.00Encounter for general adult medical examination without abnormal findings Modified On:07/13/2022 Status:rwbxmfymiA75.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 Modified On:07/13/2022 Status:jrqrlvthuV18.371Instability of right ankle joint Modified On:07/22/2022 Status:cnjlgcymsW80.81At low risk for fall Modified On:07/13/2022 Status:edbwyyobiN07.31Encounter for screening for depression Modified On:07/13/2022 Status:feexajzbuZ69.1Seasonal allergic rhinitis due to pollen Modified On:07/13/2022 Status:edvjtijgtV48.42Controlled type 2 diabetes mellitus with diabetic polyneuropathy, without long-term current use of insulin Modified On:07/06/2023 Status:crcrkfxezY98.00Insomnia, unspecified type Modified On:07/13/2022 Status:dznbfovenU76.65Controlled type 2 diabetes mellitus with hyperglycemia, without long-term current use of insulin Modified On:07/13/2022 Status:tocbjqokdN58.709Chronic migraine without aura, not intractable, without status migrainosus Modified On:07/13/2022 Status:mtfjenvhwR04.90Other type of osteoarthritis, unspecified site Modified On:07/13/2022 Status:spdugcvtrT47.33Obstructive sleep apnea (adult) (pediatric) Modified On:07/13/2022 Status:nupahgwwqT40Gdevtpunu (primary) hypertension Modified On:07/13/2022 Status:zjjpcuvdlY31.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, lumbar region Modified On:07/13/2022 Status:mmjktiqivU14.10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 Modified On:07/13/2022 Status:jqbomixclS23.2Venous insufficiency (chronic) (peripheral) Modified On:07/13/2022 Status:mbtptnlmoE30.46Personal history of malignant neoplasm of prostate Modified On:07/13/2022 Status:xsjylnzwzG15.9Gastro-esophageal reflux disease without esophagitis Modified On:07/13/2022 Status:zbmeakcgxJ58.5Dyslipidemia Modified On:07/13/2022 Status:fsxrdjttfU98.9Obesity, unspecified classification, unspecified obesity type, unspecified whether serious comorbidi ty present Modified On:07/13/2022 Status:nvlwnymuhN02.03Bilateral carpal tunnel syndrome Modified On:07/13/2022 Status:ncpehccosX82.9Vitamin D deficiency, unspecified Modified On:07/13/2022 Status:nedzfeiifZ71.0Presence of cardiac pacemaker Modified On:07/13/2022 Status:rakkdbtndW61.9Glaucoma of both eyes, unspecified glaucoma type Modified On:07/13/2022 Status:vtzqtomscN16.2Plantar fasciitis, right Modified On:11/30/2022 Status:nwukflamhC23.821Posterior tibial tendon dysfunction (PTTD) of right lower extremity Modified On:07/22/2022 Status:qyjqgiskdD96Xsxvczy of urine Modified On:11/12/2022 Status:fworsrznwD12.675Pain in left toe(s) Modified On:02/08/2024 Status:qmtjgwqdjI78.674Pain in right toe(s) Modified On:02/08/2024 Status:olxnvskykZ82.9Anemia Modified On:02/07/2025 Status:imoolanoxY54.9Hypothyroidism Modified On:02/07/2025 Status:kwrlnzgkuL99.9Polyneuropathy Modified On:04/04/2025 Status:urgjnfmebN28.30Degeneration of intervertebral disc of cervical region Modified On:04/04/2025 Status:confirmed * Medical History: * Surgical History: B ilateral Selective Coronary PTCA with Synergy Drug-eluting Stent Placement in the 1st and 2nd Obtuse Marginal Branches of the LT Circumflex Coronary Artery, Failed MynxGrip Closure Device Dr Arellano 08/30/2019Cardiac Pacemaker Insertion [address] [place] [address] Surgery 2010Bilateral Hernia Repair 2009Tonsillectomy Vasectomy Cataract Cholecystectomy Pacemaker Prostatectomy * Hospitalization/Major Diagno stic Procedure: D enies Past Hospitalization * Family History: F ather: , diagnosed with Cancer. M other: , diagnosed with Hypertension, Heart Disease. S ister(s): diagnosed with Cancer. * Social History: ???Tobacco Use:?Tobacco Use/Smoking?Patient is a?former smoker ?How long has it been since you last smoked? > 10 years ???Quit 35 years ago. * Medications: T akingAlbuterol Sulfate (2.5 MG/3ML) 0.083% Nebulization Solution 3 mL Inhalation every 6 hrs-PRN amLODIPine Besylate 5 MG Tablet 1 tablet Orally Once a day Aspirin 81 MG Tablet Chewable 1 tablet Orally Once a day Pxrsomefjh-EZJO-Ofrpmqru 50-325-40 MG Capsule 1 capsule as needed Orally every 4 hrs Crestor(Rosuvastatin Calcium) 10 MG Tablet 1 tablet Orally Once a day Dorzolamide HCl 2 % Solution 1 drop into affected eye Ophthalmic Three times a day Fluticasone Propionate 50 MCG/ACT Suspension 1 spray in each nostril Nasally Once a day Furosemide 20 MG Tablet 1 tablet Orally Once a day Glucose Lancets check blood sugar daily DX E11.9 contour plus blueGlucose Meter test blood sugar daily DX E11.9 contour plus blue meterGlucose Test Strips test blood sugar once daily DX E11.9 contour plus blueIrbesartan 300 MG Tablet 1 tablet Orally Once a day Isosorbide Mononitrate ER 30 MG Tablet Extended Release 24 Hour 1 tablet in the morning Orally Once a day Latanoprost 0.005 % Solution 1 drop into affected eye in the evening Ophthalmic Once a day Loperamide HCl 2 MG Capsule 1 capsule as needed Orally Four times a day metFORMIN HCl ER 500 MG Tablet Extended Release 24 Hour 1 tablet Orally Once a day Multivitamin Adult(Multiple Vitamin) - Tablet 1 tablet Orally Once a day Omeprazole 40 MG Capsule Delayed Release 1 capsule 30 minutes before morning meal Orally Once a day Plavix(Clopidogrel Bisulfate) 75 MG Tablet 1 tablet Orally Once a day Sotalol HCl 80 MG Tablet 0.5 tablet Orally every 12 hrs Test Strips - - use 1 strip dx: E11.9 once daily Tylenol PM Extra Strength(diphenhydrAMINE-APAP (sleep)) 500-25 MG Tablet 1 tablet at bedtime as needed Orally Once a day Zonisamide 50 MG Capsule 1 capsule Orally twice a day Medication List reviewed and reconciled with the patientTaking Albuterol Sulfate (2.5 MG/3ML) 0.083% Nebulization Solution 3 mL Inhalation every 6 hrs-PRN Taking amLODIPine Besylate 5 MG Tablet 1 tablet Orally Once a day Taking Aspirin 81 MG Tablet Chewable 1 tablet Orally Once a day Taking Rhlwoldqvt-IBJZ-Kybxsmkw 50-325-40 MG Capsule 1 capsule as needed Orally every 4 hrs Taking Crestor(Rosuvastatin Calcium) 10 MG Tablet 1 tablet Orally Once a day Taking Dorzolamide HCl 2 % Solution 1 drop into affected eye Ophthalmic Three times a day Taking Fluticasone Propionate 50 MCG/ACT Suspension 1 spray in each nostril Nasally Once a day Taking Furosemide 20 MG Tablet 1 tablet Orally Once a day Taking Glucose Lancets check blood sugar daily DX E11.9 contour plus blueTaking Glucose Meter test blood sugar daily DX E11.9 contour plus blue meterTaking Glucose Test Strips test blood sugar once daily DX E11.9 contour plus blueTaking Irbesartan 300 MG Tablet 1 tablet Orally Once a day Taking Isosorbide Mononitrate ER 30 MG Tablet Extended Release 24 Hour 1 tablet in the morning Orally Once a day Taking Latanoprost 0.005 % Solution 1 drop into affected eye in the evening Ophthalmic Once a day Taking Loperamide HCl 2 MG Capsule 1 capsule as needed Orally Four times a day Taking metFORMIN HCl ER 500 MG Tablet Extended Release 24 Hour 1 tablet Orally Once a day Taking Multivitamin Adult(Multiple Vitamin) - Tablet 1 tablet Orally Once a day Taking Omeprazole 40 MG Capsule Delayed Release 1 capsule 30 minutes before morning meal Orally Once a day Taking Plavix(Clopidogrel Bisulfate) 75 MG Tablet 1 tablet Orally Once a day Taking Sotalol HCl 80 MG Tablet 0.5 tablet Orally every 12 hrs Taking Test Strips - - use 1 strip dx: E11.9 once daily Taking Tylenol PM Extra Strength(diphenhydrAMINE-APAP (sleep)) 500-25 MG Tablet 1 tablet at bedtime as needed Orally Once a day Taking Zonisamide 50 MG Capsule 1 capsule Orally twice a day Medication List reviewed and reconciled with the patient * Allergies: A Darcy[Allergies Verified] Objective: * Vitals: W t:153.0lbs, Ht: 66 in, BP:118/78mm Hg, BMI:24.69Index, Ht-cm: 167.64 cm, Wt-k.4 kg. * Examination: ???General Examination: ?GENERAL APPEARANCE:? in no acute distress, well developed,well nourished.?LUNGS:? clear to auscultation bilaterally.?CARDIO:? S1, S2 normal, no murmurs, rubs, gallops.?EXTREMITIES:? no clubbing, cyanosis, or edema.?NEUROLOGIC:? alert, oriented to time, place, & person. ??? 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 Plan: * Treatment: Notes: Doing GREat??2.?Essential (primary) hypertension? 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 Notes: no chest pain??4.?Personal history of malignant neoplasm of prostate? Notes: had radiont - lennox issues??5.?Venous insufficiency (chronic) (peripheral)? Notes: comporession hose hlepoing??6.?Others? Notes:Continue taking medications as prescribed and monitor BP at home regularly.?? * Procedure Codes: * * Sign off status: CompletedVisit Status:?CHK (Check Out) true * Provider: Jose G Sinclair ([facility])MD Date: 1 07/02/2024 Generated for Printing/Faxing/eTransmitting on:?05/03/2025 01:17 PM EST History and Physical Notes * HPI (History of Present Illness) CategorySub-CategoryDetailNotesCategory NotesHypertensionThe patient complains ofhigh blood pressure DM sugar [address] HTN - stable with meds CAD - stabel no chest pain hypercholesterolemi - revewiewed labs The symptoms have been present for1-2 daysThe symptoms aremoderateSymptomatic treatment has includedhome blood pressure monitoringAssociated symptoms include none Examination CategorySub-CategoryDetailNotesCategory NotesGeneral ExaminationGENERAL APPEARANCE:in no acute distress, well developed, well nourishedCARDIO:S1, S2 normal, no murmurs, rubs, gallopsLUNGS:clear to auscultation bilaterally NEUROLOGIC:alert, oriented to time, place, & personEXTREMITIES:no clubbing, cyanosis, or edema
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
--- OUTSIDE RECORDS SUMMARY | 2025-05-03 13:17 | XMS_ITS | Clinical Summary ---
Author Organization [facility] Address [address] [place] [address] Phone Care Team Providers Care Director Of Undergraduate Admissions Name Role Phone Demetrius Mirza MD Primary Care Provider [phone] Allergies Active AllergyReactionsCriticalityNoted VeovPxjkwboiGcakikuzBedgIgr84/12/2024 Adhesive Tape-VxqfzzncrXkbpFjf87/05/2019NiacinHives,Itching,Wmdsxek4301/19/2019 Medications MedicationSigDispense QuantityRefillsLast FilledStart DateEnd DateStatus amLODIPine (Norvasc) 5 mg tablet Take 1 tablet (5 mg) by mouth once daily.02/21/2024ctive aspirin 81 mg EC tablet Take 1 tablet (81 mg) by mouth once daily.Active fajvnvdphx-fpahpuwatbcti-tzuv 50-325-40 mg tablet Take 1 tablet by [...] 1 each.Active Active Problems ProblemNoted DateDiagnosed DatePrimary glgbqvttiqai48/26/2024oronary artery disease involving autologous artery coronary bypass graft05/11/2024acemaker 05/11/2024Stented coronary iuchnq0105/11/2024Ventricular zhnakczbldk69/26/2024OSA (obstructive sleep apnea)05/11/2024Gastroesophageal reflux ddhqrsg2105/11/2024 Aonudvzjy00/26/2024iabetes mellitus, type Oral csenqf2304/07/2024 Malignant neoplasm of floor of mouth04/07/2024 Family History Medical HistoryRelationNameCommentsCancerFatherPaul J BauerHearing lossFather Daniel Choudhury BauerVision lossMaternal GrandfatherGeorge SmithHypertensionMaternal GrandmotherEdna SmithAsthmaMotherDoris M BauerHypertensionMotherDoris M Bennett Vision lossOtherAnna BremmserHypertensionPaternal GrandmotherKatherine Bennett Vision lossPaternal GrandmotherKatherine BauerCancerSisterJudy ReisigMotion SicknessSisterJudy ReisigRelationNameStatusCommentsFatherPaul J BauerAlive Maternal GrandfatherGeorge SmithAliveMaternal GrandmotherEdna SmithAliveMother Estee M BauerAliveOtherAnna BremmserAlivePaternal GrandmotherKatherine Bennett AliveSisterJudy ReisigAlive Social History Tobacco UseTypesPacks/DayYears UsedDateSmoking Tobacco: HixfthFdkrsnebty949Eywi: 05/17/1983Smokeless Tobacco: Former Tobacco Cessation:Counseling Given: No Alcohol UseStandard Drinks/WeekCommentsYes2 (1 standard drink = 0.6 oz pure alcohol)or less or weekPHQ-2AnswerDate RecordedPatient Health Questionnaire-2 Jvzst360Sex and Gender InformationValueDate RecordedSex Assigned at BirthNot on fileLegal CemIoto14/25/2022 9:24 AM ESTGender EnodhrgmCdzx50/26/2024 5:56 AM ESTSexual OdxvsztklfjWpemquic81/26/2024 5:56 AM EST Last Filed Vital Signs Vital SignReadingTime TakenCommentsBlood Lalhbcuc845/69012/11/2024 1:30 PM EDT Juatm277906/05/2024 2:13 PM SREFoaexnkrant91 ??C (96.8 ??F)09/11/2024 1:07 PM EDT Respiratory Wcnv647706/05/2024 2:13 PM ESTOxygen Eztxlgnvxx33%06/05/2024 2:13 PM ESTInhaled Oxygen Concentration--Kychsv41.7 kg (160 lb 2.6 oz)12/11/2024 1:30 PM LIILxtzch773.1 cm (5' 5 )09/11/2024 1:07 PM EDTBody Mass Index26.65009/11/2024 1:07 PM EDT Plan of Treatment DateTypeDepartmentCare Team (Latest Contact Info)Pkiroqrypoc24/23/2026 1:30 PM ESTOffice Visit [facility] [address] [place] [address] [place] [address] [place], [place] [phone] Health MaintenanceDue DateLast DoneCommentsDiabetes: Hemoglobin A1C1939 Diabetes: Urine Protein Nbzqovagg11/15/6361Axptqubmeqnern66/15/1940Lipid Panel 1940Medicare Annual Wellness Visit (AWV)1939Diabetes: Retinopathy Pvoxwzdev71/15/1950DTaP/Tdap/Td Vaccines (1 - Tdap)10/29/1961Influenza Vaccine (#1)512/06/2023, 04/12/2023, 02/18/2021, Additional history exists COVID-19 Vaccine ( season)/, 11/25/2021, 03/06/2021, Additional history existsCreatinine Level511/ Potassium Level/4Pneumococcal VjcsnobPawmkzose12/08/2024, 01/30/2014Zoster SpgcenarYbpcnbzqr50/25/2024, 4RSV High Risk: (Elderly (60+) or Population)Uvmpwmbkc33/06/2024HIB VaccinesAged OutNo longer eligible based on patient's [...] topic Procedures Procedure NamePriorityDate/TimeAssociated DiagnosisCommentsBASIC METABOLIC PANEL Jqztlap7004/11/2024 9:14 AM EST Oral lesion 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) from Last 3 Months or Most Recently Relevant to Health Maintenance Results * (ABNORMAL) Basic Metabolic Panel (04/11/2024 9:14 AM EST)ComponentValueRef RangeTest MethodAnalysis TimePerformed AtPathologist ZcszaxadiQkqncju493(H)74 - 99 mg/dL LAB CHEMISTRY METHOD 04/11/2024 11:09 AM [facility] TKLYrwgjw090867 - 145 mmol/L LAB CHEMISTRY METHOD 04/11/2024 11:09 AM [facility] LABPotassium4.53.5 - 5.3 mmol/L LAB CHEMISTRY METHOD 04/11/2024 11:09 AM [facility] PDGSxbdzeli75605 - 107 mmol/L LAB CHEMISTRY METHOD 04/11/2024 11:09 AM [facility] YFLPsogjngzbhe2660 - 32 mmol/L LAB CHEMISTRY METHOD 04/11/2024 11:09 AM [facility] LABAnion Bbp7623 - 20 mmol/L LAB CHEMISTRY METHOD 04/11/2024 11:09 AM [facility] LABUrea Ghjaqrpy868 - 23 mg/dL LAB CHEMISTRY METHOD 04/11/2024 11:09 AM [facility] LABCreatinine0.960.50 - 1.30 mg/dL LAB CHEMISTRY METHOD 04/11/2024 11:09 AM [facility] VKImNMZ02>60 mL/min/1.73m*2 LAB CHEMISTRY METHOD 04/11/2024 11:09 AM [facility] LABComment: Calculations of estimated GFR are performed using the 2020 CKD-EPI Study Refit equation without therace variable for the IDMS-Traceable creatinine methods. https://jasn.asnjournals.org/content//ASN.6337068357 Calcium9.98.6 - 10.6 mg/dL LAB CHEMISTRY METHOD 04/11/2024 11:09 AM [facility] LABSpecimen (Source)Anatomical Location / LateralityCollection Method / VolumeCollection TimeReceived TimeBloodVenous blood specimen / UnknownVenipuncture / Nqeewxy4404/11/2024 9:14 AM EST04/11/2024 10:37 AM EST Narrative Authorizing ProviderResult TypeResult StatusTracy Adrian Max [facility] BLOOD ORDERABLESFinal ResultPerforming OrganizationAddressCity/State/ZIP CodePhone Number [facility] [address] [facility] [address] [phone] from Last 3 Months or Most Recently Relevant to Health Maintenance Insurance Advance Directives For more information, please contact: [phone] (Available ) TypeDate RecordedPatient RepresentativeExplanationHealthcare Power of Atty 05/11/2024Living Will05/11/2024 Care Teams Team MemberRelationshipSpecialtyStart DateEnd Date Demetrius Mirza MD [address] [facility] [place] [address] PCP - GeneralFamily Lazqprif63/26/24
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
--- OUTSIDE RECORDS SUMMARY | 2025-05-03 13:18 | XMS_ITS | Clinical Summary ---
Author Organization [facility] Address [address] [place] [id number] Care Team Providers Care Care Management Associate Name Role Phone Anjali Ruby CNP Unavailable [phone] Consuelo Mcghee MD Unavailable Demetrius Mirza MD Primary Care Provider [phone] Allergies Active AllergyReactionsCriticalityNoted DateCommentsAdhesive Tape-SiliconesRash 01/19/2019NiacinItching,Oenzqfl3901/19/2019 Medications MedicationSigDispense QuantityRefillsLast FilledStart DateEnd DateStatus isosorbide mononitrate ER (IMDUR) 30 mg 24 hr tablet Take 30 mg by mouth.08/31/2022ctive clopidogrel (PLAVIX) 75 mg tablet 02/27/2023ctive furosemide (LASIX) 20 mg tablet Take 20 mg by mouth.04/24/2020Active fluticasone (FLONASE) 50 mcg/actuation nasal spray 1 [place].08/24/2022ctive omeprazole (PRILOSEC) 40 mg capsule Take 40 [...] RecordedNational Score (1-100), lower number is lower dltt655004/01/2023State Score (1-10), lower number is lower qqpb91606/01/2022ata from: https://www.neighborhoodatlas.medicine.[facility].edu/. Last address used for [address]/01/2023Sex and Gender InformationValueDate RecordedSex Assigned at BirthNot on fileLegal BpjUfmd40/18/2023 7:42 AM EDTGender Identity Not on fileSexual OrientationNot on file Last Filed Vital Signs Vital SignReadingTime TakenCommentsBlood Fxicvgsl862/6611/ 1:15 PM EST Emskw792304/01/2023 1:15 PM OZGYsukkfsfktd57.2 ??C (97.1 ??F)04/01/2023 1:15 PM ESTRespiratory Rate--Oxygen Rbdpfuvdva38%04/01/2023 1:15 PM ESTInhaled Oxygen Concentration--Pffjfw96.8 kg (167 lb)04/01/2023 1:15 PM ESTHeight--Body Mass Index-- Plan of Treatment Health MaintenanceDue DateLast DoneCommentsAnxiety Woozzhjar46/15/1958Depression Tndzybwih75/15/1958DTaP,Tdap,Td Vaccine (1 - Tdap)10/29/1958Diabetes Screening 10/29/1984RSV Vaccine (1 - 1-dose 75+ series)10/29/2014dvance Directive Jcpzniwhzn28/01/2025Medicare Advantage Annual Wellness Visit05/17/2024ovid-19 Vaccine (2024- season), 11/25/2021, 03/06/2021, Additional history existsInfluenza Vaccine (#1)5106/12/2022, 02/18/2021, 02/14/2020, Additional history existsPneumococcal Vaccine: 50+Completed 11/22/2023, 01/30/2014Shingrix VjdwlqjYgvtrolax96/25/2024, 11/22/2023 Insurance Care Teams Team MemberRelationshipSpecialtyStart DateEnd Date Demetrius Mirza MD [address] [place] [address] PCP - GeneralFamily Fofwidny97/11/24 Anjali Ruby, [employer] [address] [place] [address] ReferringFamily Kzsrabjz29/18/23 Consuelo Mcghee MD [address] [id number] Ent - Vnrvciawymhsyf91/25/24
--- OUTSIDE RECORDS SUMMARY | 2025-05-03 13:18 | XMS_ITS | Patient Health Record ---
Author Organization The [facility] in [place] Address [address] [facility] [place] [address] Care Team Providers Care Corporate Vp Advertising & Online Name Role Phone Haris Armstrong Primary Care Provider Merrill, Susana Unavailable [phone] Allergies Allergen (clinical drug ingredient) Drug/Non Drug Allergy documented on EMR Reaction Allergy Type Onset Date Status NiaspanUnknownDrug AllergyActiveAdhesiveUnknownAllergyActive Results Component Value Reference Range Notes CREATININE Reviewed date:02/02/2025 04:59:14 PM Interpretation: Performing Lab: Notes/Report: [facility] , Creatinine 0.92 0.70-1.30 mg/dL Estimated GFR ( Kalee>60>=60 mL/min/1.73m 2Estimated GFR (Non- Esperanza>60>=60 mL/min/1.73m 2Performing Lab:see noteML - [facility] LBCBC AUTO DIFF Reviewed date:02/07/2025 12:40:42 PM Interpretation: Performing Lab: Notes/Report: [facility] ,White Blood Count6.74.0-11.0 10 3/uLRed Blood Count4.104.70-6.10 10 6/uL Tccirkrwhu49.814.0-18.0 g/gEBlmmdwvgfm36.642.0-54.0 %Mean Corpuscular Aoueob92.1 80.0-94.0 fLMean Corpuscular Blhpnypzto38.225.9-34.0 pgMean Corpuscular HGB Conc 33.229.9-35.2 g/dLRed Cell Distribution Width13.711.0-15.0 %Platelet Tmyci398 150-450 10 3/uLMean Platelet Vixnwp63.49.5-13.5 fLNeutrophils Percent Auto59.3 43.0-75.0 %Lymphocytes Percent Auto24.920.5-60.0 %Monocytes Percent Auto9.41.7- 12.0 %Eosinophils Percent Auto4.80.9-7.0 %Basophils Percent Auto0.60.2-2.0 % Immature Granulocytes Pct Auto1.00.0-0.5 %Neutrophils Absolute Auto4.01.4-6.5 10 3/uLLymphocytes Absolute Auto1.71.2-3.8 10 3/uLMonocytes Absolute Auto0.60.3-0.8 10 3/uLEosinophils Absolute Auto0.30.0-0.7 10 3/uLBasophils Absolute Auto0.00.0- 0.1 10 3/uLImmature Granulocytes Abs Auto0.070.00-0.03 10 3/uLPerforming Lab:see noteML - [facility] LBFREE T3 Reviewed date:02/07/2025 12:40:42 PM Interpretation: Performing Lab: Notes/Report: [facility] ,Free T32.842.18-3.98 pg/mLPerforming Lab:see noteML - [facility] LB LIPID PROFILE Reviewed date:02/07/2025 12:40:42 PM Interpretation: Performing Lab: Notes/Report: [facility] ,Sxgreshfhuzet146<=150 mg/hXFxqltzzcmnu899<=200 mg/dLHDL Rgwokpxqbtp6564-56 mg/dL > or =60 mg/dl - LOW CARDIOVASCULAR RISK <40 mg/dl - HIGH CARDIOVASCULAR RISK LDL Cholesterol Kwpxdilvdi43.0 <100 mg/dl OPTIMAL 100-129 mg/dl NEAR OR ABOVE OPTIMAL 130-159 mg/dl BORDERLINE HIGH 160-189 mg/dl HIGH >190 mg/dl VERY HIGH VLDL IRJPQNHQTRM01.2Chol HDL Ratio3.5 3.3 - 4.4 LOW RISK 4.4 - 7.1 AVERAGE RISK 7.1 - 11.0 MODERATE RISK >11.0 HIGH RISK Performing Lab:see noteML - [facility] LBPROF 14(COMP METB) Reviewed date:02/07/2025 12:40:42 PM Interpretation: Performing Lab: Notes/Report: [facility] ,Kmtrpe937041-103 mmol/LPotassium4.03.5-5.1 mmol/UNyknbuyr43027-257 mmol/LCarbon Gouqthp61.521.0-32.0 mmol/LAnion Gap15.6Bhewpkx74936-881 mg/dLBlood Urea Loesyaiz81.07.0-18.0 mg/dLCreatinine0.980.70-1.30 mg/dLEstimated GFR ( Kalee>60>=60 mL/min/1.73m 2Estimated GFR (Non- Esperanza>60>=60 mL/min/1.73m 2BUN Creatinine Ratio16.5Mqhtkhp9.38.5-10.1 mg/dLBilirubin Total0.50.2-1.0 mg/dL Aspartate Amino Hoeypmxbwcw8582-10 U/LAlanine Xhhckivyziiwirjc3618-48 U/L Alkaline Swgdfxblrsr4907-692 U/LTotal Protein7.56.4-8.2 g/dLAlbumin Level3.83.4- 5.0 g/dLGlobulin3.7Albumin Globulin Ratio1.0Performing Lab:see noteML - [facility] LBT4 Reviewed date:02/07/2025 12:40:42 PM Interpretation: Performing Lab: Notes/Report: [facility] ,T4 Thyroxine5.404.50-12.10 ug/dLPerforming Lab:see noteML - [facility] LBTSH Reviewed date:02/07/2025 12:40:42 PM Interpretation: Performing Lab: Notes/Report: [facility] ,Thyroid Stimulating Hormone3.9490.358-3.740 uIU/mLPerforming Lab:see noteML - [facility] LBVITAMIN D 25 [place] Reviewed date:02/07/2025 12:40:42 PM Interpretation: Performing Lab: Notes/Report: [facility] ,Vitamin D46.7 <20 ng/mL Vit D deficient 20-<30 ng/mL Vit D insufficient 30-100 ng/mL Vit D sufficient >100 ng/mL Potential Toxicity Performing Lab:see noteML - [facility] LBXR lumbar spine 6V w bending Reviewed date:02/23/2025 11:49:27 AM Interpretation: Performing Lab: Notes/Report: Source Facility: [facility]-[address] [place] [address] [place] [address] XRay Report Signed Patient: JAIR GROSS MR#: [id number] : 1940 Acct:[id number] Age/Sex: 84 / M ADM Date: 02/23/25 Loc: RAD Attending Dr: Antonio Roque NP Ordering Physician: Antonio Roque NP Date of Service: 02/23/25 Procedure(s): XR lumbar spine 6V w bending Accession Number(s): [id number] cc: Antonio Roque NP; Leonardo Armstrong M.D. The [place] [address] Patient Name: JAIR GROSS MRN: [id number] date: 1940 Sex: M Assigned Patient Location: [facility] Current Patient Location: [facility] Accession/Order Number: [id number] Exam Date: 02/23/2025 08:57 Report Date: 02/23/2025 [...] Valdez M.D. 02/23/2025 9:41 AM Dictation Location: [place] [address] Electronically authenticated by: [id number] Y Date: 02/23/2025 09:41 Dictated By: Lorene Valdez M.D. Signed By: 02/23/25943 DD/ 0 TD/TT: Safety Pin Assembling Machine Operator:RUBA T3 Reviewed date:03/07/2025 12:44:00 PM Interpretation: Performing Lab: Notes/Report: [facility] ,Free T32.872.18-3.98 pg/mLPerforming Lab:see noteML - [facility] LB T4 Reviewed date:03/07/2025 12:44:00 PM Interpretation: Performing Lab: Notes/Report: [facility] ,T4 Thyroxine6.004.50-12.10 ug/dLPerforming Lab:see noteML - [facility] LBTSH Reviewed date:03/07/2025 12:44:00 PM Interpretation: Performing Lab: Notes/Report: [facility] ,Thyroid Stimulating Hormone1.7030.358-3.740 uIU/mLPerforming Lab:see noteML - [facility] LBPSA Total+% Free Reviewed date:02/08/2025 12:38:26 PM Interpretation: Performing Lab: Notes/Report: [facility] ,Prostate Specific Ag<0.10.0-4.0 ng/mL Mathew ECLIA methodology. According to the [place] [employer], Serum PSA should decrease and [...] other population of men. Performed at: - [address] [id number] Corporate Auditor: Sathish Queen PhD, Phone: [phone] Performing Lab:see [facility] LBGLYCOHEMOGLOBIN A1C Reviewed date:02/07/2025 12:40:42 PM Interpretation: Performing Lab: Notes/Report: [facility] ,Glycohemoglobin A1C6.64.5-6.2 % ADA RECOMMENDED LIMIT 4.0 - 6.0 ADA THERAPEUTIC TARGET < 7.0 ACTION SUGGESTED > 7.0 Estimated Average Rztcvne481Msukjvtcuk Lab:see note - [facility] LB CT abdomen pelvis w con Reviewed date:02/02/2025 04:59:14 PM Interpretation: Performing Lab: Notes/Report: Source Facility: [place] [address] CT Scan Report Signed Patient: JAIR GROSS MR#: [id number] : 1940 Acct:[id number] Age/Sex: 84 / M ADM Date: 02/02/25 Loc: LAB Attending Dr: Leonardo Armstrong M.D. Ordering Physician: Leonardo Armstrong M.D. Date of Service: 02/02/25 Procedure(s): CT abdomen pelvis w con Accession Number(s): [id number] cc: Leonardo Armstrong M.D. [place] [address] Patient Name: JAIR GROSS MRN: [id number] date: 1940 Sex: M Assigned Patient Location: LAB Current Patient Location: LAB Accession/Order Number: [id number] Exam Date: 02/02/2025 08:45 Report Date: 02/02/2025 09:42 At the request of: LOENARDO ARMSTRONG MD Procedure: CT abdomen pelvis w [...] Valdez M.D. 02/02/2025 9:42 AM Dictation Location: [place] [address] Electronically authenticated by: [id number] Y Date: 02/02/2025 09:42 Dictated By: Lorene Valdez M.D. Signed By: 02/02/25943 DD/ 1 TD/TT: Safety Pin Assembling Machine Operator: Reason For Referral Reason [facility]. Diagnosis [address] of the a bdomen (R93.5) Referral Organization [facility] Referring Provider First Name Haris Referring Provider Last Name Yahir Referring Provider [facility] latanya Referred Provider Yash Maria Referred Provider Specialty General Surg popeye Referral Priority Routine Diagnosis [address] of the a bdomen (R93.5) Referral Organization [facility] Referring Provider First Name Haris Referring Provider Last Name Yahir Referring Provider [facility] latanya Referred Provider [facility], Gastroenterolog y Referred Provider Specialty Gastroentero logy Referral Priority Routine Medications Medication SIG (Take, Route, Frequency, Duration) Notes Start Date End Date Status amLODIPine Besylate 5 MG 1 tablet Orally Once a day; Duration: 30 day(s) ActiveIsosorbide Mononitrate ER 30 MG1 tablet in the morning Orally Once a day; Duration: 30 day(s)ActiveAlbuterol Sulfate (2.5 MG/3ML) 0.083%3 mL Inhalation every 6 hrs-PRN5ActiveIrbesartan 300 MG1 tablet Orally Once a day; Duration: 30 day(s)ActiveZonisamide 50 MG1 capsule Orally twice a day01/30/2025 ActiveGlucose Test Strips test blood sugar once daily DX E11.9; Duration: 90 days contour plus blue 5ActiveTylenol PM Extra Strength 500-25 MG1 tablet at bedtime as needed Orally Once a day; Duration: 30 day(s)ActiveGlucose Meter test blood sugar daily DX E11.9; Duration: 365 days contour plus blue meter 5ActiveTest Strips -use 1 strip dx: E11.9 once daily; Duration: 90 5ActiveDorzolamide HCl 2 %1 drop into affected eye Ophthalmic Three times a dayActiveMultivitamin Adult -1 tablet Orally Once a day; Duration: 30 day(s)ActiveCrestor 10 MG1 tablet Orally Once a day; Duration: 30 day(s)Active metFORMIN HCl ER 500 MG1 tablet Orally Once a day; Duration: 30 daysActive Boxupwakey-ONDW-Svzaimpq 50-325-40 MG1 capsule as needed Orally every 4 hrs ActiveLoperamide HCl 2 MG1 capsule as needed Orally Four times a dayActive Aspirin 81 MG1 tablet Orally Once a day; Duration: 30 day(s)ActiveLatanoprost 0.005 %1 drop into affected eye in the evening Ophthalmic Once a dayActive Sotalol HCl 80 MG0.5 tablet Orally every 12 hrs; Duration: 30 daysActiveGlucose Lancets check blood sugar daily DX E11.9; Duration: 90 days contour plus blue 5ActiveFurosemide 20 MG1 tablet Orally Once a day; Duration: 30 day(s) ActivePlavix 75 MG1 tablet Orally Once a day; Duration: 30 day(s)Active Fluticasone Propionate 50 MCG/ACT1 spray in each nostril Nasally Once a day; Duration: 30 day(s)ActiveOmeprazole 40 MG1 capsule 30 minutes before morning meal Orally Once a day; Duration: 30 day(s)Active Immunizations Vaccine Route Administration Date Status Comme nts Makivo Unknown 04/21/2024 Administered Comirnaty Reach.ly Syringe Pre-Filled 30 mcg/0.3 rJIliqvwd72/13/2023Administered Flu, Fluad (74386) 65 yrs + High Dose Seasonal (4263-0319)Tjpeqep8804/17/2024 AdministeredPneumococcal (Prevnar 13)Jemglsi7501/30/2014dministeredPneumococcal (Prevnar 20)Naqpjjj49/08/5643NdejqayypnwrMSIJ-IHD-7 (COVID 19 Pfizer 30mcg/0.3mL)Bsyifzs94/21/3636RftiqsqyqrnoCRKR-AMQ-1 (COVID 19 Pfizer 30mcg/0.3mL)Ahwzhhs65/11/7858ZvoeqlhilytrOUMS-JPB-4 (COVID 19 Pfizer 30mcg/0.3mL)Fgyutms29/21/4379KnteehfczzlwJCFG-ZJL-3 (COVID 19 Pfizer 30mcg/0.3mL), grady oxifiwtQorwgym81/12/2022dministeredZOSTER (SHINGLES) VACCINE (HZV)Gvucmyd7111/22/2023dministeredZOSTER (SHINGLES) VACCINE (HZV)Unknown 02/09/2024dministered Social History Tobacco Use: Social History Observation Description Date Details (start date - stop date) Former Smoker NA - NA Tobacco Use/Smoking Question Answer Notes Patient is a former smoker How long has it been since you last smoked?> 10 yearsAUDIT-C (Standard) Question Answer Notes Did you have a drink containing alcohol in the p ast year? No Diaqqb4OtksftgsqdwxegJticfgptGfajmuf Notes: Quit 35 years ago Quit 35 years ago Quit 35 years ago Quit 35 years ago Quit 35 years ago Quit 35 years ago Quit 35 years ago Problems Problem Type SNOMED Code ICD Code Onset Dates Problem Status W/U Status Risk Notes Problem Essential hypertension (56171408 ) Essential (primary) hypertension (I10) ActiveconfirmedProblemObstructive sleep apnea syndrome (disorder) (69409057) Obstructive sleep apnea (adult) (pediatric) (G47.33)ActiveconfirmedProblem Gastro-esophageal reflux disease without esophagitis (330120392)Gastro- esophageal reflux disease without esophagitis (K21.9)ActiveconfirmedProblem History of malignant neoplasm of prostate (580404239)Personal history of malignant neoplasm of prostate (Z85.46)ActiveconfirmedProblemImpacted cerumen (86429495)Impacted cerumen, right ear (H61.21)ActiveconfirmedProblemVitamin D deficiency (29255843)Vitamin D deficiency, unspecified (E55.9)Activeconfirmed ProblemOverweight (615932413)Overweight (E66.3)ActiveconfirmedProblemChronic migraine without aura, non-intractable (055091533811770)Chronic migraine without aura, not intractable, without status migrainosus (G43.709)Activeconfirmed ProblemPeripheral venous insufficiency (31157369)Venous insufficiency (chronic) (peripheral) (I87.2)ActiveconfirmedProblemLumbosacral spondylosis without myelopathy (97968159)Spondylosis without myelopathy or radiculopathy, lumbar region (M47.816)ActiveconfirmedProblemPeroneal tendinitis (76046158)Peroneal tendinitis, right leg (M76.71)ActiveconfirmedProblemPain in right foot (486993288322029)Pain in right foot (M79.671)ActiveconfirmedProblemPain in limb (50846945)Pain in right toe(s) (M79.674)ActiveconfirmedProblemPain in limb (14029829)Pain in left toe(s) (M79.675)ActiveconfirmedProblemLaceration without foreign body of right middle finger without damage to nail, initial encounter (S61.212A)ActiveconfirmedProblemSprain of deltoid ligament of right ankle, sequela (S93.421S)ActiveconfirmedProblemAdult health examination (845418697) Encounter for general adult medical examination without abnormal findings (Z00.00)ActiveconfirmedProblemLong-term current use of drug therapy (376437110) Other timber poisoner (current) drug therapy (Z79.899)ActiveconfirmedProblemCardiac pacemaker in situ (023017362)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)Active confirmedProblemCoronary arteriosclerosis (disorder) (41965872)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)ActiveconfirmedProblemDyslipidemia (262228861)Dyslipidemia (E78.5)ActiveconfirmedProblemHypothyroidism (67260780)Hypothyroidism (E03.9) ActiveconfirmedProblemAnemia (722008715)Anemia (D64.9)ActiveconfirmedProblem Polyneuropathy (93898147)Polyneuropathy (G62.9)ActiveconfirmedProblemPlantar fascial fibromatosis (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)Plantar fasciitis, right (M72.2)Activeconfirmed ProblemLeaking of urine (584944459)Leaking of urine (R32)ActiveconfirmedProblem Insomnia (790647761)Insomnia, unspecified type (G47.00)ActiveconfirmedProblem Degeneration of cervical intervertebral disc (25697966)Degeneration of intervertebral disc of cervical region (M50.30)ActiveconfirmedProblem Osteoarthritis (440473992)Other type of osteoarthritis, unspecified site (M19.90)ActiveconfirmedProblemInstability of joint of right ankle (6238397990141636)Instability of right ankle joint (M25.371)Activeconfirmed ProblemAllergic rhinitis caused by pollen (58507877)Seasonal allergic rhinitis due to pollen (J30.1)ActiveconfirmedProblemHyperglycemia due to type 2 diabetes mellitus (340651421035509)Controlled type 2 diabetes mellitus with hyperglycemia, without long-term current use of insulin (E11.65)Activeconfirmed ProblemBilateral carpal tunnel syndrome (80746138211813388)Bilateral carpal tunnel syndrome (G56.03)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 (892073390)Controlled type 2 diabetes mellitus with diabetic polyneuropathy, without 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)Activeconfirmed ProblemGlaucoma (82433540)Glaucoma of both eyes, unspecified glaucoma type (H40.9)ActiveconfirmedProblemObesity (349684895)Obesity, unspecified classification, unspecified obesity type, unspecified whether serious comorbidi ty present (E66.9)ActiveconfirmedProblemAt low risk for fall (249208025)At low risk for fall (Z91.81)ActiveconfirmedProblemDepression Screening (359997679) Encounter for screening for depression (Z13.31)ActiveconfirmedProblemTibialis tendinitis (97879605)Posterior tibial tendon dysfunction (PTTD) of right lower extremity (M76.821)Activeconfirmed Vital Signs Blood pressure diastolic 78 mm Hg 05/01/2025 Pyfbuy09 in05/01/2025lood pressure bjawhles616 mm Hg05/01/20250021Tkfvej773.0 lbs 05/01/2025BMI24.69 kg/m205/01/2025 Encounters Encounter Location Date Provider Diagnosis [facility] [address] [place] [address] 01/30/2025 Haris Armstrong Controlled type 2 diabetes mellitus with diabetic polyneuropathy, without long-term current use of insulin E11.42 ; Essential (primary) hypertension I10 ; Dyslipidemia E78.5 ; Gastro-esophageal reflux disease without esophagitis K21.9 ; Vitamin D deficiency, unspecified E55.9 and Right upper quadrant abdominal pain R10.11 [facility] [address] [place] [facility] [address] 05/01/2025 Haris Armstrong Controlled type 2 diabetes mellitus with diabetic polyneuropathy, without long-term current use of insulin E11.42 ; Essential (primary) hypertension I10 ; CAD in marshall artery I25.10 ; Personal history of malignant neoplasm of prostate Z85.46 and Venous insufficiency (chronic) (peripheral) I87.2 [facility] [address] [place] [facility] [address] 01/30/2025 Haris Armstrong [facility] [place] [facility] [address] 02/02/2025Doug [facility]Abnormal [address] of the [facility]93.[facility] [place] [facility] [address]/Doug HoyAbnormal CT of the abdomen R93.5[facility] [place] [facility] [address]/Doug HoyAnemia D64.9 and Hypothyroidism E03.9 [facility] [place] [facility] [address] 02/08/2025Doug [facility] [place] [facility] [address]/Doug [facility] [place] [facility] [address]/Doug [facility] [place] [facility] [address]/Doug [facility] [place] [facility] [place] [address]/Doug [facility]oyBSwed[facility] [place] [address]Doug Yahir Assessments Encounter Date Diagnosis (ICD Code) Assessment Notes Treatment Notes Treatment Clinical Notes Section Notes 01/30/2025 Controlled type 2 di abetes mellitus with diabetic polyneuropathy, without long-term current use of insulin (ICD-10 - E11.42) 01/30/2025Essential (primary) hypertension (ICD-10 - I10)05/01/2025ontrolled type 2 diabetes mellitus with diabetic polyneuropathy, without long-term current use of insulin (ICD-10 - E11.42)Doing GREat05/01/2025Essential (primary) hypertension (ICD-10 - I10)Stabel with meds02/02/2025bnormal CT of the abdomen (ICD-10 - R93.5)02/06/2025bnormal CT of the abdomen (ICD-10 - R93.5)02/07/2025 Anemia (ICD-10 - D64.9)02/07/2025Hypothyroidism (ICD-10 - E03.9)05/01/2025AD in marshall artery (ICD-10 - I25.10)no chest pain01/30/2025Dyslipidemia (ICD-10 - E78.5)01/30/2025Gastro-esophageal reflux disease without esophagitis (ICD-10 - K21.9)05/01/2025Personal history of malignant neoplasm of prostate (ICD-10 - Z85.46)had radiont - lennox ssgqwp8105/01/2025Venous insufficiency (chronic) (peripheral) (ICD-10 - I87.2)comporession hose dothnmhb31/16/2025Vitamin D deficiency, unspecified (ICD-10 - E55.9)01/30/2025Right upper quadrant abdominal pain (ICD-10 - R10.11)05/01/2025OtherContinue taking medications as prescribed and monitor BP at home regularly. Plan Of Treatment Pending Test Test Name Order Date HEMOGLOBIN A1C (GLYCO) 01/30/2025 LIPID PANEL (CHOL/TRIG/HDL/LDL) 01/31/20 25 PSA-FREE AND TOTAL 01/30/2025 VITAMIN D 25 [place] 01/30/2025 CT ABD and PELV W CON 01/30/2025 THYROID PANEL (T4/TSH/FREE T3) 5 THYROID PANEL (T4/TSH/FREE T3) 5 PSA, SCREENING 01/30/2025 CMP (COMP MET PADRON) w/eGFR CKD-EPI 2024 CBC WITH DIFF 01/30/2025 Next Appt Details Provider Name:Haris Armstrong, 09:45:00 AM, [address] [place], [address], Insurance Providers Payer Name Payer Address Payer Phone Subscriber Number Group Number Insured Name Patient Relationship to Insured Coverage Start Date Coverage End Date [employer] [address] [address] [place] [address] [id number] Jair Gross Self - patient is the insured 4 [place] [id number] Bird Grosslf - patient is the insured [...] radicu lopathy, lumbar region M47.816 CAD in marshall artery I25.10 Encounter for screening for depression Z 13.31 Venous insufficiency (chronic) (peripher al) I87.2 Personal history of malignant neoplasm o f prostate Z85.46 Other timber poisoner (current) drug therapy Z 79.899 Impacted cerumen, [...] History Surgery Date(Month/Year) Prostatectomy PacemakerCholecystectomyCataractVasectomyTonsillectomyBilateral Hernia Repair 2009Ne Wcssaoe1607Bxtbrlx Pacemaker Zqekkhtzo9648Qdvnuttcn Selective Coronary PTCA with Synergy Drug-eluting Stent Placement in the 1st and 2nd Obtuse Marginal Branches of the LT Circumflex Coronary Artery, Failed MynxGrip Closure Device Dr Arellano08/30/2019
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
--- OUTSIDE RECORDS SUMMARY | 2025-05-03 13:18 | XMS_ITS | Clinical Summary ---
Author Organization Episencial tem Address [facility] [id number] [address] [place] [address] Care Team Providers Care Microsoft Windows Engineer Name Role Phone Unavailable Primary Care Provider Unavailabl e Allergies Active AllergyReactionsCriticalityNoted DateCommentsAdhesive Tape-Silicones 01/19/20198309Yscfgo92/05/2019 Medications MedicationSigDispense QuantityRefillsLast FilledStart DateEnd DateStatus glimepiride (AMARYL) 2 mg tablet Indications:Type 2 diabetes mellitus without complication, without long-term current use of insulin ([facility])Take 1 tablet (2 mg total) by mouth [...] (six) hours as needed for muscle spasms.Active neyaunsftl-eytqfoslwt-jem-cod (FIORICET WITH CODEINE) 47-936-73-30 mg per capsule Take 1 capsule by [...] mouth daily.Active Active Problems ProblemNoted DateDiagnosed DatePreventative [facility] care01/29/2019 Assessment & Plan (01/29/2019 8:01 PM EDT): DATE WHEN VACCINE ------- --FLU YRLY IN FALL --TETANUS Q 10 YRS ynunv3049 --HZ ONCE AGE 59 Needs 2019 --PREVNAR [...] arb/arti, statin On arb, asa, statin Seasonal yenibrzel91/15/2019 Overview (01/29/2019): flnoase CAD (coronary artery disease)01/29/2019 [...] Hearing Aids Hyperlipidemia Overview (01/29/2019): crestor , Ellis 3 Hypertension Overview (01/29/2019): Amlodipine, avapro Migraines Overview (01/29/2019): fioricet with codiene, depakote Neuropathy Overview (01/29/2019): feet / DM / gabapentin NPH (normal pressure hydrocephalus) Overview (01/29/2019): senior svp shunt Osteoarthritis Overview (01/29/2019): Mobic, tyenol, zanaflex PacemakerPeripheral edema Overview (01/29/2019): lasix Prostate cancerSkin cancerUrine incontinence Overview (01/29/2019): post prostate suregery / 2 urethral valve surgeries Insomnia Overview (01/29/2019): ambien Cardiac dysrhythmia Overview (01/29/2019): Pacemaker, plavix, asa, sotalol Resolved Problems ProblemNoted DateDiagnosed DateResolved JhkuAfysvijzgfhlth68/15/2019 Overview (01/29/2019): colonoscopy Immunizations ImmunizationAdministration DatesNext DueInfluenza, Ruxkriwtryd45/08/2018 Pneumococcal Taigdkabc12/16/2014 Family History Medical HistoryRelationNameCommentsCOPDMotherHypertensionMotherKidney failure MotherRelationNameStatusCommentsFatherDeceased (Age 98)old age , glaucomaMother (Age 88)liver failure, CHF ESRD dialysis Social History Tobacco UseTypesPacks/DayYears UsedDateSmoking Tobacco: FormerCigarettesPipe CigarsSmokeless Tobacco: FormerSnuff, Chew Tobacco Cessation:Counseling Given: Yes Alcohol UseStandard Drinks/WeekCommentsNot Currently0 (1 standard drink = 0.6 oz pure alcohol)RARELYChildcareAnswerDate MrchyqfhLomsraplnWwrturd61/28/2019 EmploymentAnswerDate TmsmnylmGcnavypfcnWxxxway31/28/2019Purpose - LifeAnswerDate RecordedPurpose and direction in vybsBkjdisd96/11/2021ex and Gender Information ValueDate RecordedSex Assigned at BirthNot on fileLegal LvqLotg9701/11/2019 11:13 AM EDTGender IdentityNot on fileSexual OrientationNot on file Last Filed Vital Signs Vital SignReadingTime TakenCommentsBlood Uacpupee061/7409 2:35 PM EDT Apuqf778101/19/2019 2:35 PM DYWSljqzoycyda88.3 ??C (97.4 ??F)01/19/2019 2:35 PM EDTRespiratory Wygw5315 2:35 PM EDTOxygen Lcbgafqvps94%01/19/2019 2:35 PM EDTInhaled Oxygen Concentration--Knwwgn60.2 kg (203 lb 4.8 oz)01/19/2019 2:35 PM EDTHeight--Body Mass Index-- Plan of Treatment Health MaintenanceDue DateLast DoneCommentsDepression Dedeeoptq01/15/1952Tobacco Zrtzrzcgx37/15/1952DTaP,Tdap and Td Vaccines (1 - Tdap)10/29/1958Zoster (Shingles) Vaccine (1 of 2)10/29/1958Fall Risk Xfnnhkimr06/15/2005RSV ( or age 60+ yrs) (1 - 1-dose 75+ series)10/29/2014Influenza Bnibhzn4701/15/2025 01/22/2018 Medical Devices Not on file Insurance
--- NOTE | 2025-05-03 13:47 | PM.CN ---
Consult Note: HPI Data of Consult Patient: known to practice within the last 3 years Consult date: 05/03/25 Requesting Physician: Alexandra Trevizo NP Primary Care Provider: Owen Sinclair MD Consult Narrative Reason for consult: low back pain Narrative: Jair Bennett a pleasant 84 year old male presents for evaluation and management of low back pain. pain 0/10 aching increasing to 5/10 at the worst, with lifting, bending, standing, and activity. denies falls or injury. denies numbness, tingling, weakness, pain in LE. recently underwent lumbosacral xray consistent with multilevel ddd, facet arthropathy, and spondylolisthesis. cannot take NSAIDs on plavix. finds moderate benefit to transdermal therapeutics cream. utilizing zonegran 25mg bid and tizanidine 4mg TID PRN with benefit without side effects. recently underwent bilateral L2-3 L4-5 facet RFA which remains in healing phase, however pt endorsing 40% improvement overall. cc:: CC: Alexandra Trevizo NP Review of Systems ROS Musculoskeletal Denies: back pain PFSH PFS Medical History (Updated 02/22/25 @ 15:25 by Alexandra Trevizo NP) Anemia ?D64.9 - Anemia, unspecified (ICD-10) COVID ?U07.1 - COVID-19 (ICD-10) Vitamin D deficiency ?E55.9 - Vitamin D deficiency, unspecified (ICD-10) Skin cancer ?C44.90 - Unspecified malignant neoplasm of skin, unspecified (ICD-10) NPH (normal pressure hydrocephalus) ?G91.2 - (Idiopathic) normal pressure hydrocephalus (ICD-10) Migraine ?G43.909 - Migraine, unspecified, not intractable, without status migrainosus (ICD-10) Glaucoma ?H40.9 - Unspecified glaucoma (ICD-10) Diverticulosis ?K57.90 - Diverticulosis of intestine, part unspecified, without perforation or abscess without bleeding (ICD-10) Ventricular tachycardia ?I47.20 - Ventricular tachycardia, unspecified (ICD-10) Arthritis ?M19.90 - Unspecified osteoarthritis, unspecified site (ICD-10) Cervical lymphadenopathy ?R59.0 - Localized enlarged lymph nodes (ICD-10) Neck pain ?M54.2 - Cervicalgia (ICD-10) Low back pain ?M54.50 - Low back pain, unspecified (ICD-10) Thrombosis ?I82.90 - Acute embolism and thrombosis of unspecified vein (ICD-10) Weakness ?R53.1 - Weakness (ICD-10) Hiatal hernia ?K44.9 - Diaphragmatic hernia without obstruction or gangrene (ICD-10) Acid reflux ?K21.9 - Gastro-esophageal reflux disease without esophagitis (ICD-10) Diabetes ?E11.9 - Type 2 diabetes mellitus without complications (ICD-10) Prostate cancer ?C61 - Malignant neoplasm of prostate (ICD-10) Sleep apnea ?G47.30 - Sleep apnea, unspecified (ICD-10) Irregular heart beat ?I49.9 - Cardiac arrhythmia, unspecified (ICD-10) High cholesterol ?E78.00 - Pure hypercholesterolemia, unspecified (ICD-10) Hypertension ?I10 - Essential (primary) hypertension (ICD-10) Surgical History History of lymph node biopsy ?Z98.890 - Other specified postprocedural states (ICD-10) History of implantation of artificial sphincter ?Z96.89 - Presence of other specified functional implants (ICD-10) Hx laparoscopic cholecystectomy ?Z90.49 - Acquired absence of other specified parts of digestive tract (ICD-10) History of carpal tunnel release of both wrists ?Z98.890 - Other specified postprocedural states (ICD-10) Pacemaker ?Z95.0 - Presence of cardiac pacemaker (ICD-10) H/O angioplasty ?Z98.62 - Peripheral vascular angioplasty status (ICD-10) H/O vasectomy ?Z98.52 - Vasectomy status (ICD-10) H/O neck surgery ?Z98.890 - Other specified postprocedural states (ICD-10) History of repair of inguinal hernia ?Z98.890 - Other specified postprocedural states (ICD-10) ?Z87.19 - Personal history of other diseases of the digestive system (ICD-10) History of prostatectomy ?Z90.79 - Acquired absence of other genital organ(s) (ICD-10) History of phacoemulsification of cataract of both eyes with intraocular lens implantation ?Z98.41 - Cataract extraction status, right eye (ICD-10) ?Z98.42 - Cataract extraction status, left eye (ICD-10) ?Z96.1 - Presence of intraocular lens (ICD-10) History of cardiac radiofrequency ablation ?Z98.890 - Other specified postprocedural states (ICD-10) History of tonsillectomy ?Z90.89 - Acquired absence of other organs (ICD-10) Social History Smoking status: Former smoker Little interest or pleasure in doing things: not at all Feeling down, depressed, or hopeless: not at all Meds Home Medications and Allergies Home Medications ?Medication ?Instructions ?Recorded ?Confirmed ?Type amlodipine 5 mg tablet 5 mg PO QDAY 10/14/22 04/16/25 History clopidogrel 75 mg tablet (Plavix) 75 mg PO QDAY 10/14/22 04/16/25 History furosemide 20 mg tablet (Lasix) 40 mg PO QDAY 10/14/22 04/16/25 History irbesartan 300 mg tablet (Avapro) 300 mg PO QDAY 10/14/22 04/16/25 History isosorbide mononitrate 30 mg PO QDAY 10/14/22 04/16/25 History latanoprost 0.005 % eye drops 1 drp ophthalmic (eye) QDAY 10/14/22 03/12/25 History loperamide 2 mg capsule 2 mg PO Q2H PRN loose stool 10/14/22 04/16/25 History (Anti-Diarrheal (loperamide)) multivitamin (Daily Multi-Vitamin 1 tab PO QDAY 10/14/22 04/16/25 History tablet) omeprazole 40 mg capsule,delayed 40 mg PO QDAY 10/14/22 04/16/25 History release rosuvastatin 10 mg tablet (Crestor) 10 mg PO QDAY 10/14/22 04/16/25 History sotalol 40 mg PO BID 10/14/22 04/16/25 History tizanidine 4 mg tablet 4 mg PO BEDTIME 10/14/22 04/16/25 History TRANSDERMAL THERAPEUTICS QID PRN pain 09/15/23 History albuterol sulfate 90 mcg/actuation 2 inh inhalation Q8H PRN shortness 09/15/23 04/16/25 History aerosol inhaler of breath or wheezing famotidine 20 mg tablet 20 mg PO DAILY 09/15/23 04/16/25 History metformin 500 mg tablet,extended 500 mg PO DAILY 09/15/23 04/16/25 History release 24 hr psyllium husk 0.4 gram capsule 0.4 g PO DAILY 09/15/23 04/16/25 History (Metamucil) zonisamide 25 mg capsule 25 mg PO BID 09/15/23 04/16/25 History dorzolamide 2 % eye drops 1 drp ophthalmic (eye) TID 02/21/24 04/16/25 History Allergies Allergy/AdvReac Type Severity Reaction Status Date / Time adhesive Allergy Mild Unknown Verified 03/12/25 12:22 niacin (From Niaspan Allergy Mild itch Verified 03/12/25 12:22 Extended-Release) Exam Constitutional Documenting provider has reviewed patient's vital signs: yes Common normals: no apparent distress, oriented x3 and alert General appearance: cooperative HENMT Common normals: normocephalic, hearing grossly normal bilaterally and moist oral mucous membranes Head and scalp: normocephalic Eye Common normals: PERRL Pupil: PERRL Neck & C-Spine Common normals: full ROM General: normal visual inspection Chest Common normals: inspection of chest normal Respiratory Common normals: normal respiratory effort, no retractions and no use of accessory muscles Back & Pelvis Lumbar spine/lower back: ROM limited; no pain with ROM, no lumbar spinal tenderness and straight leg raise positive Other: sensation intact BLE strength 5/5 in BLE Extremity Common normals: normal to inspection and full ROM Neuro Common normals: oriented x3 Sensorium/orientation: alert Psych Common normals: mental status grossly normal, thought process normal, cooperative, affect normal, speech normal and activity/motor behavior normal Speech: normal speech Thought process: normal thought process Results Additional Findings Additional findings: If on a controlled substance or opioids, I have checked an [place] report on this patient and there are no aberrancies noted in the prescribing history.??If on a controlled substance or opioid a drug screen was completed and reviewed within the last year, and if there has not been a drug screen completed we ordered one today to monitor higher risk, state monitored pain medication use. As part of providing excellent, safe, comprehensive care, the following was completed at our patient's visit: 1. A medication reconciliation and review to ensure accurate knowledge of current/active medications, including asking our patients to inform us about any nupt-jkn-wlmrejs medications or herbal remedies/nutritional supplements/alternative remedies. 2. A review to specifically ensure our patients have had annual screening for screening for depression, screening for tobacco use, and screening for unhealthy alcohol use. For concerning screenings had a discussion with the patient, provided patient education, and recommended follow-up with primary care provider when appropriate. If patient noted with a risk of falling, they received education on strength, gait, and balance training to prevent future risk of falling. Portions of this note may have been carried over from the previous visit and updated as appropriate. Please note this office utilizes paper charting in addition to the electronic medical record. A list of current medications, vitals, and PMH is available there as the clinical staff outside of myself do not have access to [employer] charting during the clinic day operations. As part of providing quality comprehensive care the current medications, vitals, and PMH were reviewed in the paper chart. Assessment and Plan Assessment and Plan (1) Lumbar spondylosis: Plan pain improving, noting pain 0/10 increasing to 5/10. pt status post bilateral L2-3 L4-5 facet RFA which remains in healing phase, but pt noting 40% improvement at this time. as discussed within 4-12 weeks the RFA should be expected to provide at least 50% improvement in his pain and functional ability. f/u 1 month
== END 2025-05-03 13:15 | disposition home or self-care (01) ==
LOC: PM 13:14
PROVIDERS: PCP Family Medicine; Visit Provider Nurse Practitioner
DX: M47.816 Spondylosis without myelopathy or radiculopathy, lumbar region (principal)
CPT/HCPCS: G0463